=== PATIENT | female | born 1985 | race Caucasian/White ===

== ENCOUNTER 2019-06-30 12:58 | Emergency (ER) | payer MEDICAID, SELFPAY ==
[2019-06-30 13:20] VITALS: BP 81/44; PULSE 88; RESP 16; TEMP 36.6; O2SAT 99; BMI 26.4
--- NOTE | 2019-06-30 13:33 | ED_ITS ---
Entered by Catalina Brizuela, acting as scribe for Michael Lawson MD, [facility] Jun 30, 2019 12:58 HPI - General Adult General: Chief complaint: General Medical Stated complaint: body aches, head ache Time Seen by Provider: 06/30/19 13:33 Source: patient Mode of arrival: ambulatory Limitations: no limitations History of Present Illness: HPI narrative: 33 yo Female presents to ED with complaint of migraine headache, back pain, sores on her head, and diarrhea. Pt states that she has had diarrhea for 3 days. Pt states that she has had the headache since Saturday. MD complaint: Multiple complaints Onset (ago): day(s) (4) Location: head and back Pain Consistency: constant Relieving factors: none Exacerbating factors: none Associated symptoms: Reports fevers/chills, headache(s) and nausea Review of Systems General: Reports: 10 or more systems reviewed and unremarkable except in HPI and below Const: Reports: chills and body aches GI: Reports: nausea and diarrhea Musc: Reports: back pain Skin/Breast: Reports: sores (on her head) Neuro: Reports: headache PFSH ED PFSH: Statuses (acute, chronic, etc) shown below reflect problem list status as previously entered and may not be historically accurate Medical History (Updated 06/30/19 @ 19:13 by Michael Lawson MD, [facility] Anxiety (Acute) Chronic headache (Acute) Diabetes (Acute) DKA (diabetic ketoacidoses) (Acute) HTN (hypertension) (Acute) Hyperglycemia (Acute) Lymphadenitis (Acute) Migraine headache (Acute) Pancreatitis (Acute) PID (pelvic inflammatory disease) (Acute) Pyelonephritis (Acute) Respiratory failure (Acute) Sepsis (Acute) Ureterolithiasis (Acute) Surgical History (Updated 06/30/19 @ 13:58 by Catalina Brizuela) History of cholecystectomy (Acute) History of endoscopy (Acute) History of lung surgery (Acute) Social History Smoking and tobacco status: current every day smoker Female Reproductive History: Date of last menstrual period: 06/30/19 Physical Exam Const: COMMON NORMALS: no apparent distress, average body habitus, oriented x3, no limitations, healthy appearing, alert and well nourished HENMT: COMMON NORMALS: normocephalic, head/scalp atraumatic, hearing grossly normal bilaterally, external ears normal, EAC's normal, TM's normal bilaterally, external nose normal, nasal mucous membranes and turbinates normal, moist oral mucous membranes, oropharynx normal, dentition normal and gingiva normal HEAD & SCALP: normocephalic and atraumatic NOSE: external nose normal and nasal mucous membranes and turbinates normal EXTERNAL EAR: Yes external ears normal EXTERNAL AUDITORY CANAL: EAC's normal TYMPANIC MEMBRANE: TM's normal bilaterally Eye: COMMON NORMALS: PERRL, EOMs intact bilaterally, conjunctivae normal, no scleral icterus, no papilledema, normal visual torres by confrontation and fundi normal bilaterally CONJUNCTIVA: Yes conjunctivae normal PUPIL: Yes PERRL DIRECT OPHTHALMOSCOPY: Yes no papilledema and Yes fundi normal bilaterally Neck/C-Spine: COMMON NORMALS: full ROM, supple, no meningeal signs, no JVD and no carotid bruits Chest: COMMONS NORMALS: inspection of chest normal and palpation of chest normal Resp: COMMON NORMALS: normal respiratory effort, no retractions, no use of accessory muscles, clear to auscultation bilaterally and percussion normal AUSCULTATION: clear to auscultation bilaterally PERCUSSION: percussion normal Cardio: COMMON NORMALS: no JVD, regular rate, regular rhythm, S1 normal heart sound, S2 normal heart sound, no gallops, no clicks, no murmurs, no rub and peripheral pulses 2+ throughout RATE: regular rate RHYTHM: regular rhythm HEART SOUNDS: S1 normal and S2 normal PERIPHERAL PULSES: pulses 2+ throughout GI: COMMON NORMALS: normal to inspection, nondistended, normoactive bowel sounds, soft to palpation, no hepatosplenomegaly, no masses and no bruits PALPATION: Yes soft, Yes tender (Generalized) and Yes no hepatosplenomegaly : COMMON NORMALS: Yes no CVA tenderness BLADDER/KIDNEY EXAM: Yes no CVA tenderness Back/Pelvis: COMMON NORMALS: no CVA tenderness Extremity: COMMON NORMALS: normal to inspection, full ROM, normal capillary refill, no joint enlargement, no clubbing, cyanosis or edema, no calf tenderness and no pedal edema Neuro: COMMON NORMALS: oriented x3 SENSORIUM/ORIENTATION: Yes alert MENINGEAL SIGNS: Yes no meningeal signs Skin: COMMON NORMALS: no rashes or lesions noted, no wounds, skin turgor normal, no jaundice, no petechiae and no mottling GENERAL SKIN EXAM: no rashes or lesions noted and turgor normal Course Reevaluation(s): Reevaluation #1: Patient seen. She is sleeping soundly. Her headache is probably resolved. Time: 14:52 Reevaluation #2: Patient seen. She is awake now. She says her headache has resolved. Discussed her labs and imaging findings with her. She appears to have a UTI and has elevated liver enzymes. She no longer has her gallbladder as it has been surgically removed. Will order a CT scan of her abdomen and if negative will discharge her home. She voiced understanding and is in agreement with the plan Time: 16:30 Vital Signs: Vital signs: Vital Signs Temperature 97.6 F 06/30/19 22:51 Pulse Rate 85 06/30/19 22:51 Respiratory Rate 14 06/30/19 22:51 Blood Pressure 117/88 06/30/19 22:51 Pulse Oximetry 98 06/30/19 22:51 MDM - General Adult MDM Narrative: Medical decision making narrative: 33-year-old female who presented with symptoms consistent with a migraine headache. She also has been having some diarrhea and abdominal pain. Lab testing done including a CT of her abdomen and pelvis showed a UTI. She is discharged home on oral antibiotics after receiving a single course of IV ceftriaxone. She also received medications for migraine which helped relieve her headache. Lab Data: Labs: Lab Results 06/30/19 06/30/19 06/30/19 Range/Units 13:34 13:34 14:00 WBC 11.2 H (4.0-10.0) 10^3/ uL RBC 4.77 (4.1-5.3) 10^6/u L Hgb 13.5 (11.5-15.3) g/dL Hct 38.8 (37.0-47.0) % MCV 81.3 (81-99) fL MCH 28.3 (28.0-34.0) pg MCHC 34.8 (30.0-36.0) g/dL RDW 12.0 L (12.1-15.1) % Plt Count 244 (130-400) 10^3/c mm MPV 11.3 H (7.4-10.4) fL Neut % (Auto) 81.7 % Lymph % (Auto) 11.8 % Mccreary % (Auto) 4.8 % Eos % (Auto) 1.0 % Baso % (Auto) 0.3 % Neut # (Auto) 9.2 H (1.8-7.7) 10^3/u L Lymph # (Auto) 1.3 (0.8-4.8) 10^3/u L Mccreary # (Auto) 0.5 (0.2-0.9) 10^3/u L Eos # (Auto) 0.1 (0.0-0.8) 10^3/u L Baso # (Auto) 0.0 (0.0-0.1) 10^3/u L Nucleated RBC % (a uto) 0 % Nucleated RBCs # 0.0 /100WBC Specimen Type Sample Site ABG pH (7.35-7.45) ABG pCO2 (35-45) mmHg ABG pO2 (80.0-100.0) mmH g ABG HCO3 (22-26) mmol/L ABG Base Excess (-2.0-2.0) mmol/ L Braulio Test Hematocrit (37-47) % Hgb O2 Saturation (95-100) % Carboxyhemoglobin (0.4-20.1) %THgb Methemoglobin (0.4-1.5) % Total Hemoglobin (12-16) g/dL Ionized Calcium (1.1-1.4) mmol/L FiO2 % Sql Consultant ID Sodium (136-145) mmol/L Potassium (3.5-5.1) mmol/L Chloride (98-107) mmol/L Carbon Dioxide (22-29) mmol/L Anion Gap (5-19) BUN (6-20) mg/dL Creatinine (0.5-0.9) mg/dL GFR Calculation (90-130) mL/min Glucose (74-109) mg/dL Calcium (8.6-10.0) mg/Dl Total Bilirubin (0.15-1.2) mg/dL AST (0-32) U/L ALT (0-33) U/L Alkaline Phosphata se (35-105) IU/L C-Reactive Protein (0.0-4.9) mg/L Total Protein (6.6-8.7) g/dL Albumin (3.5-5.2) g/dL Globulin (1.3-4.6) g/dL Lipase (13-60) U/L HCG, Qual Negative (Negative) Urine Color Yellow (Yellow) Urine Appearance Sl hazy (CLEAR) Urine pH 5 (5-7) Ur Specific Gravit y 1.010 (1.005-1.030) Urine Protein Neg (Negative) Urine Glucose (UA) 4+ H (Normal) Urine Ketones Negative (Negative) Urine Occult Blood Neg (Negative) Urine Nitrate Positive H (Negative) Urine Bilirubin Neg (NEGATIVE) Urine Urobilinogen Norm (Negative) mg/dL Ur Leukocyte Denise ase Negative (Negative) Urine RBC None (0-2) /hpf Urine WBC 25-40 H (0-5) /hpf Ur Squamous Epith Cells 0-4 H (0-5) Urine Bacteria 4+ H (NONE) Influenza Type A A g (Negative) POC Influenza B Ag (Negative) 06/30/19 06/30/19 06/30/19 Range/Units 14:00 14:19 15:20 WBC (4.0-10.0) 10^3/ uL RBC (4.1-5.3) 10^6/u L Hgb (11.5-15.3) g/dL Hct (37.0-47.0) % MCV (81-99) fL MCH (28.0-34.0) pg MCHC (30.0-36.0) g/dL RDW (12.1-15.1) % Plt Count (130-400) 10^3/c mm MPV (7.4-10.4) fL Neut % (Auto) % Lymph % (Auto) % Mccreary % (Auto) % Eos % (Auto) % Baso % (Auto) % Neut # (Auto) (1.8-7.7) 10^3/u L Lymph # (Auto) (0.8-4.8) 10^3/u L Mccreary # (Auto) (0.2-0.9) 10^3/u L Eos # (Auto) (0.0-0.8) 10^3/u L Baso # (Auto) (0.0-0.1) 10^3/u L Nucleated RBC % (a uto) % Nucleated RBCs # /100WBC Specimen Type Arterial Sample Site Radial, right ABG pH 7.38 (7.35-7.45) ABG pCO2 35.0 (35-45) mmHg ABG pO2 86.7 (80.0-100.0) mmH g ABG HCO3 20.6 L (22-26) mmol/L ABG Base Excess -3.9 L (-2.0-2.0) mmol/ L Braulio Test Pos Hematocrit 40.7 (37-47) % Hgb O2 Saturation 96.6 (95-100) % Carboxyhemoglobin 1.2 (0.4-20.1) %THgb Methemoglobin 0.5 (0.4-1.5) % Total Hemoglobin 13.3 (12-16) g/dL Ionized Calcium 1.2 (1.1-1.4) mmol/L FiO2 21.0 % Sql Consultant ID ed Sodium 127 L 132.0 (136-145) mmol/L Potassium 3.7 3.5 (3.5-5.1) mmol/L Chloride 96 L (98-107) mmol/L Carbon Dioxide 18 L (22-29) mmol/L Anion Gap 16.7 (5-19) BUN 15 (6-20) mg/dL Creatinine 0.7 (0.5-0.9) mg/dL GFR Calculation 97.0 (90-130) mL/min Glucose 465 H 316.0 H (74-109) mg/dL Calcium 8.7 (8.6-10.0) mg/Dl Total Bilirubin 0.4 (0.15-1.2) mg/dL AST 21 (0-32) U/L ALT 63 H (0-33) U/L Alkaline Phosphata se 301 H (35-105) IU/L C-Reactive Protein 5.9 H (0.0-4.9) mg/L Total Protein 7.0 (6.6-8.7) g/dL Albumin 3.3 L (3.5-5.2) g/dL Globulin 3.7 (1.3-4.6) g/dL Lipase 15 (13-60) U/L HCG, Qual (Negative) Urine Color (Yellow) Urine Appearance (CLEAR) Urine pH (5-7) Ur Specific Gravit y (1.005-1.030) Urine Protein (Negative) Urine Glucose (UA) (Normal) Urine Ketones (Negative) Urine Occult Blood (Negative) Urine Nitrate (Negative) Urine Bilirubin (NEGATIVE) Urine Urobilinogen (Negative) mg/dL Ur Leukocyte Denise ase (Negative) Urine RBC (0-2) /hpf Urine WBC (0-5) /hpf Ur Squamous Epith Cells (0-5) Urine Bacteria (NONE) Influenza Type A A g Negative (Negative) POC Influenza B Ag Negative (Negative) Imaging Data^: CT Abd/Pel: Radiologist's impression: [place] [address] CT Scan Report Signed Patient: Donita Aguilar MMR#: [id number] : 1985Acct:[id number] Age/Sex: 33 / FADM Date: 06/30/19 Loc: ER Attending Dr: Ordering Physician: Michael Lawson MD, JACKIE Date of Service: 06/30/19 Procedure(s): CT abdomen pelvis w con* [id number] Accession Number(s): [id number] cc: Michael Lawson MD, JACKIE~ PROCEDURE INFORMATION: Exam: CT Abdomen And Pelvis With Contrast Exam date and time: 06/30/2019 6:35 PM Age: 33 years old Clinical indication: Nausea and vomiting and other: Diarrhea; Abdominal pain; Generalized; Additional info: Abd pain, diarrhea, elevated liver enzymes TECHNIQUE: Imaging protocol: Computed tomography of the abdomen and pelvis with intravenous contrast. Axial, coronal and sagittal reformatted images were created and reviewed. Total DLP: 579.89 mGy-cm Radiation optimization: All CT scans at this facility use at least one of these dose optimization techniques: automated exposure control; mA and/or kV adjustment per patient size (includes targeted exams where dose is matched to clinical indication); or iterative reconstruction. Contrast material: OMNI 300; Contrast volume: 95 ml; Contrast route: IV; COMPARISON: CT abdomen pelvis w con* [id number] 07/26/2018 1:02 AM FINDINGS: Lungs: Minimal linear stranding and groundglass at the lung bases, likely due to atelectasis and/or scarring. Postsurgical changes at the left lung base. Unchanged 9 mm right lower lobe calcified granuloma. Mediastinum: Small hiatal hernia and mild nonspecific distal esophageal wall thickening, suggesting chronic reflux/esophagitis. Liver: Unremarkable. Gallbladder and bile ducts: Status post cholecystectomy. No biliary ductal dilatation. Pancreas: Unremarkable. Spleen: Unremarkable. Adrenals: Unremarkable. Kidneys and ureters: The left greater than right renal cortical scarring. No radiodense calculi. No hydronephrosis. Stomach and bowel: No bowel wall thickening. No obstruction. No pneumatosis. Appendix: Normal. Intraperitoneal space: Trace nonspecific free pelvic fluid, likely physiologic. No organized fluid collection. No free air. Vasculature: Unremarkable. No aneurysm. Lymph nodes: Small mesenteric lymph nodes, nonspecific in appearance. No pathologically enlarged lymph nodes. Bladder: Circumferential urinary bladder wall thickening, compatible with cystitis. Nondependent gas in the urinary bladder, consistent with recent instrumentation versus gas producing organism. Reproductive: Probable involuting right ovarian corpus luteal cyst. Bones/joints: No acute osseous abnormality. Bilateral L5 pars defects. Soft tissues: Unremarkable. CT/CT abdomen pelvis w con* [id number] IMPRESSION: 1. Circumferential urinary bladder wall thickening, compatible with cystitis. Nondependent gas in the urinary bladder, consistent with recent instrumentation versus gas producing organism. 2. Additional findings, as above. Radiation Dose CTDIVOL = (mGy): DLP = 579.89 (mGy-cm) Dictated By: Amilcar Montalvo MD 06/30/191919 Signed By: Amilcar Montalvo MD 06/30/191920 Discharge Plan Discharge Patient Disposition: Home, Self-Care Clinical Impression: UTI (urinary tract infection) Qualifiers: Urinary tract infection type: acute cystitis Hematuria presence: without hematuria Qualified Code(s): N30.00 - Acute cystitis without hematuria Migraine Qualifiers: Migraine type: without aura Status migrainosus presence: without status migrainosus Intractability: not intractable Qualified Code(s): G43.009 - Migraine without aura, not intractable, without status migrainosus Condition: Stable Prescriptions: New Bactrim DS 800-160 mg tablet 1 tab PO BID Qty: 6 RF: 0 Continued gabapentin 300 mg Capsule 300 mg PO BID RF: 0 ProAir HFA 90 mcg/actuation Hfa Aerosol Inhaler 1 - 2 puff INHALATION Q4H PRN (Reason: Shortness Of Breath) RF: 0 Humalog KwikPen Insulin 100 unit/mL Insulin Pen See Rx Instructions .ROUTE .COMPLEX RF: 0 Lantus Solostar U-100 Insulin 100 unit/mL (3 mL) Insulin Pen 45 unit SUBCUT BEDTIME RF: 0 Discharge Orders: Discharge Order (Routine); Ordered 06/30/19 Ordered By: Michael Lawson Referrals: [facility] [Other] Elizabeth Dougherty [Primary Care Provider] - 1-3 days Patient Instructions: Headache - Migraine (Adult) Activity Restrictions/Additional Instructions: Return for any new or worsening symptoms. Follow-up with your primary care provider within 3 days. Drink plenty of fluids to keep well-hydrated. Stand Alone Forms: Work/School Release Discharge Date/Time: 06/30/19 22:50 Coding Level of Care Code ED [facility] for Chg Fwd Exam Problem Focused The documentation recorded by the Chata patterson Carmen, accurately reflects the service I personally performed and the decisions made by Lulu miranda Adegoke I, MD, [facility] Jun 30, 2019 12:58
--- NOTE | 2019-06-30 13:50 | PC.NURSE ---
Patient assited to the restroom via wheelchair for urine collection
[2019-06-30] MEDS: diphenhydrAMINE 50 mg/mL SDV 1mL 25 MG IVP (13:59)
[2019-06-30] MEDS: sodium chloride 0.9% 1,000 ML 999 ML IV (13:59)
[2019-06-30] MEDS: ketorolac 30 mg/mL INJ IVP (13:59)
[2019-06-30 14:12] LABS: Glucose Urine UA 4+ (Normal); Ketones Urine Negative (Negative); Protein Urine Neg (Negative); Urine Appearance SL Hazy (CLEAR); Urine Color Yellow (Yellow); pH Urine 5 (5-7)
[2019-06-30 14:13] LABS: Add Urine Microscopic? YES; Bilirubin Urine Neg (NEGATIVE); Blood Urine Neg (Negative); Leukocyte Esterase Urine Negative (Negative); Nitrate Urine Positive (Negative); Urobilinogen Urine Norm (Negative)
--- NOTE | 2019-06-30 14:15 | PC.NURSE ---
Abdomen tender in all quadrants
[2019-06-30 14:19] LABS: Basophils % 0.3 %; Eosinophils # 0.1 10^3/uL (0.0-0.8); Hematocrit 38.8 % (37.0-47.0); Hemoglobin 13.5 g/dL (11.5-15.3); Lymphocytes # 1.3 10^3/uL (0.8-4.8); Lymphocytes % 11.8 %; Mean Corpuscular HGB Conc 34.8 g/dL (30.0-36.0); Mean Corpuscular Hemoglobin 28.3 pg (28.0-34.0); Mean Corpuscular Volume 81.3 fL (81-99); Mean Platelet Volume 11.3 fL (7.4-10.4); Monocytes # 0.5 10^3/uL (0.2-0.9); Monocytes % 4.8 %; Neutrophils # 9.2 10^3/uL (1.8-7.7); Neutrophils % 81.7 %; Nucleated Red Blood Cells % 0 %; Platelet Count 244 10^3/cmm (130-400); Red Blood Count 4.77 10^6/uL (4.1-5.3); White Blood Count 11.2 10^3/uL (4.0-10.0)
[2019-06-30 14:20] LABS: Squamous Epithelial Cell Urine 0-4 (0-5)
[2019-06-30 14:21] LABS: Bacteria Urine 4+
[2019-06-30 14:22] LABS: Add Urine Culture? Yes; WBC Urine 25-40 /hpf (0-5)
[2019-06-30 14:35] LABS: Alanine Aminotransferase 63 U/L (0-33); Albumin Level 3.3 g/dL (3.5-5.2); Alkaline Phosphatase 301 IU/L (35-105); Anion Gap 16.7 (5-19); Aspartate Amino Transferase 21 U/L (0-32); Blood Urea Nitrogen 15 mg/dL (6-20); C Reactive Protein 5.9 mg/L (0.0-4.9); Calcium 8.7 mg/Dl (8.6-10.0); Carbon Dioxide 18 mmol/L (22-29); Chloride 96 mmol/L (98-107); Globulin 3.7 g/dL (1.3-4.6); Glucose 465 mg/dL (74-109); Lipase 15 U/L (13-60); Potassium 3.7 mmol/L (3.5-5.1); Sodium 127 mmol/L (136-145); Total Bilirubin 0.4 mg/dL (0.15-1.2)
[2019-06-30 14:42] LABS: Influenza A by IFA Negative (Negative); Influenza B by IFA Negative (Negative)
[2019-06-30 15:24] LABS: ABG PH Result 7.38 (7.35-7.45); Arterial Blood Gas Hematocrit 40.7 % (37-47); Base Excess ABG -3.9 mmol/L (-2.0-2.0); Blood Gas Allen Test Pos; Blood Gas Sample Site Radial, right; Blood Gas Sample Type Arterial; Carboxyhemoglobin 1.2 %THgb (0.4-20.1); HCO3 ABG 20.6 mmol/L (22-26); HGB O2 Sat 96.6 % (95-100); Ionized Calcium Level - ABG 1.2 mmol/L (1.1-1.4); Methemoglobin 0.5 % (0.4-1.5); PO2 ABG 86.7 mmHg (80.0-100.0); Potassium Level - ABG 3.5 mmol/L (3.5-5.0); Total Hemoglobin 13.3 g/dL (12-16)
--- NOTE | 2019-06-30 15:45 | PC.NURSE ---
Patient resting at this time. Reports symptoms have improved.
--- NOTE | 2019-06-30 16:29 | CTR_ITS ---
PROCEDURE INFORMATION: Exam: CT Abdomen And Pelvis With Contrast Exam date and time: 06/30/2019 6:35 PM Age: 33 years old Clinical indication: Nausea and vomiting and other: Diarrhea; Abdominal pain; Generalized; Additional info: Abd pain, diarrhea, elevated liver enzymes TECHNIQUE: Imaging protocol: Computed tomography of the abdomen and pelvis with intravenous contrast. Axial, coronal and sagittal reformatted images were created and reviewed. Total DLP: 579.89 mGy-cm Radiation optimization: All CT scans at this facility use at least one of these dose optimization techniques: automated exposure control; mA and/or kV adjustment per patient size (includes targeted exams where dose is matched to clinical indication); or iterative reconstruction. Contrast material: OMNI 300; Contrast volume: 95 ml; Contrast route: IV; COMPARISON: CT abdomen pelvis w con* [id number] 07/26/2018 1:02 AM FINDINGS: Lungs: Minimal linear stranding and groundglass at the lung bases, likely due to atelectasis and/or scarring. Postsurgical changes at the left lung base. Unchanged 9 mm right lower lobe calcified granuloma. Mediastinum: Small hiatal hernia and mild nonspecific distal esophageal wall thickening, suggesting chronic reflux/esophagitis. Liver: Unremarkable. Gallbladder and bile ducts: Status post cholecystectomy. No biliary ductal dilatation. Pancreas: Unremarkable. Spleen: Unremarkable. Adrenals: Unremarkable. Kidneys and ureters: The left greater than right renal cortical scarring. No radiodense calculi. No hydronephrosis. Stomach and bowel: No bowel wall thickening. No obstruction. No pneumatosis. Appendix: Normal. Intraperitoneal space: Trace nonspecific free pelvic fluid, likely physiologic. No organized fluid collection. No free air. Vasculature: Unremarkable. No aneurysm. Lymph nodes: Small mesenteric lymph nodes, nonspecific in appearance. No pathologically enlarged lymph nodes. Bladder: Circumferential urinary bladder wall thickening, compatible with cystitis. Nondependent gas in the urinary bladder, consistent with recent instrumentation versus gas producing organism. Reproductive: Probable involuting right ovarian corpus luteal cyst. Bones/joints: No acute osseous abnormality. Bilateral L5 pars defects. Soft tissues: Unremarkable. CT/CT abdomen pelvis w con* [id number] IMPRESSION: 1. Circumferential urinary bladder wall thickening, compatible with cystitis. Nondependent gas in the urinary bladder, consistent with recent instrumentation versus gas producing organism. 2. Additional findings, as above. Radiation Dose CTDIVOL = (mGy): DLP = 579.89 (mGy-cm)
[2019-06-30 18:26] LABS: HCG Qualitative Urine. Negative (Negative)
[2019-06-30] MEDS: iohexol 300 mg/mL 100 mL Btl 95 ML IV (18:36)
--- NOTE | 2019-06-30 18:43 | PC.NURSE ---
Patient out of department
[2019-06-30] MEDS: cefTRIAXone 1,000 MG in sodium chloride 0.9% (plus) 50 ML 100 MG IV (20:14)
[2019-06-30] MEDS: dexamethasone 4 mg/mL INJ IVP (21:36)
[2019-06-30] MEDS: valproic acid inj 500 MG in sodium chloride 0.9% 50 ML 55 MG IV (21:39)
[2019-06-30 22:51] VITALS: BP 117/88; PULSE 85; RESP 14; TEMP 36.4; O2SAT 98
[2019-07-01 09:42] LABS: Oxygen Device ROOM AIR; Oxygen Saturation ABG 98.2
== END 2019-06-30 22:50 | disposition home or self-care (01) ==
PROVIDERS: Emergency Provider Family Medicine; PCP Nurse Practitioner Family
DX: G43.009 Migraine without aura, not intractable, without status migrainosus (principal); N30.00 Acute cystitis without hematuria; E11.9 Type 2 diabetes mellitus without complications; I10 Essential (primary) hypertension; F17.210 Nicotine dependence, cigarettes, uncomplicated; Z87.440 Personal history of urinary (tract) infections
CPT/HCPCS: 36415; 36600; 74177; 80051; 80053; 81003; 81025; 82810; 83690; 83986; 85025; 86140; 87077; 87086; 87186; 87804; 96360; 96365; 96374; 96375; 99281; J0696; J1100; J1200; J1885; J7030; Q9967

== ENCOUNTER 2019-07-08 18:39 | Emergency (ER) | payer MEDICAID, SELFPAY ==
[2019-07-08 20:22] VITALS: PULSE 140; RESP 26; TEMP 37.4; O2SAT 95
== END 2019-07-08 20:34 | disposition left against medical advice (07) ==
PROVIDERS: Emergency Provider Emergency Medicine; PCP Nurse Practitioner Family
DX: Z53.21 Procedure and treatment not carried out due to patient leaving prior to being seen by health care provider (principal)
CPT/HCPCS: 99281

== ENCOUNTER 2019-07-20 01:53 | Emergency (ER) | payer MEDICAID, SELFPAY ==
[2019-07-20] VITALS (7 sets, daily range): BP systolic 96–123; BP diastolic 66–95; PULSE 73–81; RESP 10–16; TEMP 35–36; O2SAT 98–100; BMI 32.2
--- NOTE | 2019-07-20 02:03 | ED_ITS ---
Entered by Mary Mckee, acting as scribe for Jak Larose DO HPI - General Adult General: Chief complaint: General Medical Stated complaint: LOW BLOOD SUGAR Time Seen by Provider: 07/20/19 02:00 Source: patient Mode of arrival: EMS Limitations: no limitations History of Present Illness: HPI narrative: 33 yo f came to the er by [facility] Ems for low blood sugar. Onset was tonight. Ems stated that when they arrived the blood sugar count was 22 and when they arrived at the hospital it was 144, fire dept also gave the pt some blue frosting to try and get her sugar up. stated that they checked the pts sugar before she went to bed at 9 and it was around 200. Pt states that she hurts all over. Pt has been going to [facility] twice a week to try and get her sugar regulated. MD complaint: low blood sugar Onset (ago): day(s) (tonight) Radiation: non-radiation Severity: moderate Associated symptoms: Deny chest pain, confusion, dyspnea, headache(s), nausea, rash, palpitations or vomiting Review of Systems Const: Reports: body aches; Denies: fever or chills Eyes: Reports: blurry vision; Denies: change in vision ENMT: Denies: painful swallowing, swelling of lips/tongue, bleeding gums, dental pain, Change in hearing, nose bleeds, post nasal drip or facial/sinus pain Card: Denies: chest pain, palpitations, irregular heart rhythm, edema, swelling of feet/ankles, shortness of breath on exertion or shortness of breath when lying down Resp: Denies: shortness of breath, productive cough, non-productive cough or wheezing GI: Denies: abdominal pain, nausea, vomiting, rectal pain, blood in stool or black tarry stool : Denies: painful urination, urinary frequency, urinary urgency or blood in urine Musc: Denies: neck pain, back pain, redness or joint warmth Skin/Breast: Denies: rash, itching or redness Neuro: Denies: headache, dizziness, vertigo, confusion or seizure-like activity PFSH ED PFSH: Statuses (acute, chronic, etc) shown below reflect problem list status as previously entered and may not be historically accurate Medical History Anxiety (Acute) Chronic headache (Acute) Diabetes (Acute) DKA (diabetic ketoacidoses) (Acute) HTN (hypertension) (Acute) Hyperglycemia (Acute) Lymphadenitis (Acute) Migraine headache (Acute) Pancreatitis (Acute) PID (pelvic inflammatory disease) (Acute) Pyelonephritis (Acute) Respiratory failure (Acute) Sepsis (Acute) Ureterolithiasis (Acute) Surgical History History of cholecystectomy (Acute) History of endoscopy (Acute) History of lung surgery (Acute) Social History Smoking and tobacco status: current every day smoker Female Reproductive History: Date of last menstrual period: 06/30/19 Physical Exam Const: GENERAL APPEARANCE: well developed ORIENTATION/CONSCIOUSNESS: Yes oriented to person and Yes oriented to place; not oriented to time HENMT: COMMON NORMALS: normocephalic, external ears normal and external nose normal HEAD & SCALP: normocephalic; no scalp tenderness FACE & SINUS: normal facial exam NOSE: external nose normal and no nasal discharge EXTERNAL EAR: Yes external ears normal MOUTH: tongue normal Eye: COMMON NORMALS: PERRL, EOMs intact bilaterally and conjunctivae normal EYELID: eyelids normal CONJUNCTIVA: Yes conjunctivae normal PUPIL: Yes PER RL Neck/C-Spine: COMMON NORMALS: full ROM GENERAL: No tracheal deviation Chest: COMMONS NORMALS: inspection of chest normal CHEST: No tenderness Resp: COMMON NORMALS: clear to auscultation bilaterally EFFORT & INSPECTION: No tachypneic, No respiratory distress, No retractions, No uses accessory muscles and No tracheal deviation AUSCULTATION: clear to auscultat ion bilaterally, no rhonchi, no wheezes and lung sounds not diminished Cardio: COMMON NORMALS: regular rate and regular rhythm RATE: regular rate RHYTHM: regular rhythm HEART SOUNDS: no murmurs PERIPHERAL PULSES: radial pulses present GI: INSPECTION: No abdominal distension AUSCULTATION: No hyperactive bowel sounds and No hypoactive bowel sounds PALPATION: No guarding and No rigid PERCUSSION: no tympanic to percussion Neuro: SENSORIUM/ORIENTATION: Yes oriented to person, Yes oriented to place and No oriented to time Psych: COMMON NORMALS: cooperative Skin: COMMON NORMALS: no rashes or lesions noted GENERAL SKIN EXAM: no rashes or lesions noted Course ED course: Sugar stayed up appropriately. Labs are otherwise benign save a potassium of 3.2 which was repleted. Vital Signs: Vital signs: Vital Signs Temperature 96.8 F L 07/20/19 03:03 Pulse Rate 81 07/20/19 04:09 Respiratory Rate 16 07/20/19 04:09 Blood Pressure 99/95 07/20/19 04:09 Pulse Oximetry 98 07/20/19 04:09 [facility] - General Adult Lab Data: Labs: Lab Results 07/20/19 07/20/19 07/20/19 Range/Units 02:04 02:27 02:27 WBC 6.3 (4.0-10.0) 10^3/ uL RBC 4.42 (4.1-5.3) 10^6/u L Hgb 12.6 (11.5-15.3) g/dL Hct 38.2 (37.0-47.0) % MCV 86.4 (81-99) fL MCH 28.5 (28.0-34.0) pg MCHC 33.0 (30.0-36.0) g/dL RDW 11.7 L (12.1-15.1) % Plt Count 216 (130-400) 10^3/c mm MPV 10.1 (7.4-10.4) fL Neut % (Auto) 63.7 % Lymph % (Auto) 22.0 % Mclean % (Auto) 10.8 % Eos % (Auto) 2.4 % Baso % (Auto) 0.5 % Neut # (Auto) 4.0 (1.8-7.7) 10^3/u L Lymph # (Auto) 1.4 (0.8-4.8) 10^3/u L Mclean # (Auto) 0.7 (0.2-0.9) 10^3/u L Eos # (Auto) 0.2 (0.0-0.8) 10^3/u L Baso # (Auto) 0.0 (0.0-0.1) 10^3/u L Nucleated RBC % (a uto) 0 % Nucleated RBCs # 0.0 /100WBC Sodium 137 (136-145) mmol/L Potassium 3.2 L (3.5-5.1) mmol/L Chloride 102 (98-107) mmol/L Carbon Dioxide 24 (22-29) mmol/L Anion Gap 14.2 (5-19) BUN 12 (6-20) mg/dL Creatinine 0.7 (0.5-0.9) mg/dL GFR Calculation 97.0 (90-130) mL/min Glucose 125 H (74-109) mg/dL POC Glucose 136 (70-110) mg/dL Calcium 9.0 (8.5-10.5) mg/dL Total Bilirubin 0.2 (0.15-1.2) mg/dL AST 18 (0-32) U/L ALT 16 (0-33) U/L Alkaline Phosphata se 93 (35-105) IU/L Creatine Kinase 53 (26-192) U/L Total Protein 6.5 L (6.6-8.7) g/dL Albumin 3.5 (3.5-5.2) g/dL Globulin 3.0 (1.3-4.6) g/dL 07/20/19 Range/Units 03:44 WBC (4.0-10.0) 10^3/ uL RBC (4.1-5.3) 10^6/u L Hgb (11.5-15.3) g/dL Hct (37.0-47.0) % MCV (81-99) fL MCH (28.0-34.0) pg MCHC (30.0-36.0) g/dL RDW (12.1-15.1) % Plt Count (130-400) 10^3/c mm MPV (7.4-10.4) fL Neut % (Auto) % Lymph % (Auto) % Mclean % (Auto) % Eos % (Auto) % Baso % (Auto) % Neut # (Auto) (1.8-7.7) 10^3/u L Lymph # (Auto) (0.8-4.8) 10^3/u L Mclean # (Auto) (0.2-0.9) 10^3/u L Eos # (Auto) (0.0-0.8) 10^3/u L Baso # (Auto) (0.0-0.1) 10^3/u L Nucleated RBC % (a uto) % Nucleated RBCs # /100WBC Sodium (136-145) mmol/L Potassium (3.5-5.1) mmol/L Chloride (98-107) mmol/L Carbon Dioxide (22-29) mmol/L Anion Gap (5-19) BUN (6-20) mg/dL Creatinine (0.5-0.9) mg/dL GFR Calculation (90-130) mL/min Glucose (74-109) mg/dL POC Glucose 173 (70-110) mg/dL Calcium (8.5-10.5) mg/dL Total Bilirubin (0.15-1.2) mg/dL AST (0-32) U/L ALT (0-33) U/L Alkaline Phosphata se (35-105) IU/L Creatine Kinase (26-192) U/L Total Protein (6.6-8.7) g/dL Albumin (3.5-5.2) g/dL Globulin (1.3-4.6) g/dL Discharge Plan Discharge Patient Disposition: Home, Self-Care Clinical Impression: Hypoglycemia Condition: Stable Prescriptions: No Action gabapentin 300 mg Capsule 300 mg PO BID RF: 0 ProAir HFA 90 mcg/actuation Hfa Aerosol Inhaler 1 - 2 puff INHALATION Q4H PRN (Reason: Shortness Of Breath) RF: 0 Humalog KwikPen Insulin 100 unit/mL Insulin Pen See Rx Instructions .ROUTE .COMPLEX RF: 0 Lantus Solostar U-100 Insulin 100 unit/mL (3 mL) Insulin Pen 45 unit SUBCUT BEDTIME RF: 0 Bactrim DS 800-160 mg tablet 1 tab PO BID Qty: 6 RF: 0 Discharge Orders: Discharge Order (Routine); Ordered 07/20/19 Ordered By: Jak Larose Referrals: [facility] [Other] Elizabeth Dougherty [Primary Care Provider] - 4-7 days Discharge Diet: Usual diet and Diabetic Discharge Activity: Resume usual activity Patient Instructions: Diabetic Hypoglycemia (ED) Activity Restrictions/Additional Instructions: Consider decreasing your long-acting insulin dosage by 20 units or so to prevent nighttime hypoglycemia. Check your sugar frequently. Call your doctor later this morning to let them know you were here with a hypoglycemic episode. They may have other orders for you. Discharge Date/Time: 07/20/19 04:10 Coding Level of Care Code ED Gas Fitter for Chg Fwd The documentation recorded by the Rafi patterson Stephanie Lyn, accurately reflects the service I personally performed and the decisions made by me, Jak Larose, Jul 20, 2019 01:53
[2019-07-20 02:08] LABS: Glucose Point of Care 136 mg/dL (70-110)
[2019-07-20 02:30] LABS: Basophils % 0.5 %; Eosinophils # 0.2 10^3/uL (0.0-0.8); Eosinophils % 2.4 %; Hematocrit 38.2 % (37.0-47.0); Hemoglobin 12.6 g/dL (11.5-15.3); Lymphocytes # 1.4 10^3/uL (0.8-4.8); Mean Corpuscular Hemoglobin 28.5 pg (28.0-34.0); Mean Corpuscular Volume 86.4 fL (81-99); Mean Platelet Volume 10.1 fL (7.4-10.4); Monocytes # 0.7 10^3/uL (0.2-0.9); Monocytes % 10.8 %; Neutrophils % 63.7 %; Nucleated Red Blood Cells % 0 %; Platelet Count 216 10^3/cmm (130-400); Red Blood Count 4.42 10^6/uL (4.1-5.3); Red Cell Distribution Width 11.7 % (12.1-15.1); White Blood Count 6.3 10^3/uL (4.0-10.0)
[2019-07-20] MEDS: sodium chloride 0.9% 1,000 ML 999 ML IV (02:32)
[2019-07-20] MEDS: ketorolac 30 mg/mL INJ IVP (02:33)
[2019-07-20 03:02] LABS: Alanine Aminotransferase 16 U/L (0-33); Albumin Level 3.5 g/dL (3.5-5.2); Alkaline Phosphatase 93 IU/L (35-105); Anion Gap 14.2 (5-19); Aspartate Amino Transferase 18 U/L (0-32); Blood Urea Nitrogen 12 mg/dL (6-20); Carbon Dioxide 24 mmol/L (22-29); Chloride 102 mmol/L (98-107); Creatine Phosphokinase 53 U/L (26-192); Glucose 125 mg/dL (74-109); Potassium 3.2 mmol/L (3.5-5.1); Sodium 137 mmol/L (136-145); Total Bilirubin 0.2 mg/dL (0.15-1.2); Total Protein 6.5 g/dL (6.6-8.7)
[2019-07-20 03:48] LABS: Glucose Point of Care 173 mg/dL (70-110)
== END 2019-07-20 04:10 | disposition home or self-care (01) ==
PROVIDERS: Emergency Provider Emergency Medicine; PCP Nurse Practitioner Family
DX: E11.649 Type 2 diabetes mellitus with hypoglycemia without coma (principal); Z79.4 Long term (current) use of insulin; I10 Essential (primary) hypertension; F17.210 Nicotine dependence, cigarettes, uncomplicated
CPT/HCPCS: 36415; 36416; 80053; 82550; 82962; 85025; 96374; 99281; J1885; J7030

== ENCOUNTER 2019-12-17 11:30 | Inpatient (IN) | payer MEDICAID, SELFPAY ==
[2019-12-17] VITALS (10 sets, daily range): BP systolic 92–143; BP diastolic 56–89; PULSE 69–84; RESP 16–20; TEMP 36.3–36.9; O2SAT 96–100; BMI 26.4
--- NOTE | 2019-12-17 12:03 | XRR_ITS ---
PROCEDURE INFORMATION: Exam: XR Chest, 2 Views Exam date and time: 12/17/2019 12:46 PM Age: 34 years old Clinical indication: Chest pain; Prior surgery; Surgery type: Lt lower lung? ; Additional info: Maxime rib pain, lateral sides TECHNIQUE: Imaging protocol: XR of the chest Views: 2 views. COMPARISON: CR Chest 1 [place] [id number] 05/24/2019 9:12 AM FINDINGS: Lungs: The lungs are otherwise expanded and clear Pleural space: Left lower lobe pleural effusion. No pneumothorax. Heart/Mediastinum: Unremarkable. No cardiomegaly. Bones/joints: Unremarkable. Other findings: Similar findings are present compared to prior examination XR/XR chest 2V* [id number] IMPRESSION: 1. Left lower lobe pleural effusion 2. Otherwise negative for acute abnormality
[2019-12-17 14:03] LABS: Basophils # 0.1 10^3/uL (0.0-0.1); Basophils % 0.5 %; Eosinophils # 0.1 10^3/uL (0.0-0.8); Eosinophils % 1.2 %; Hemoglobin 13.3 g/dL (11.5-15.3); Lymphocytes # 2.6 10^3/uL (0.8-4.8); Lymphocytes % 22.1 %; Mean Corpuscular HGB Conc 31.7 g/dL (30.0-36.0); Mean Corpuscular Hemoglobin 26.5 pg (28.0-34.0); Mean Corpuscular Volume 83.7 fL (81-99); Mean Platelet Volume 10.7 fL (7.4-10.4); Monocytes # 0.9 10^3/uL (0.2-0.9); Monocytes % 7.3 %; Neutrophils # 8.1 10^3/uL (1.8-7.7); Neutrophils % 68.6 %; Nucleated Red Blood Cells % 0 %; Platelet Count 389 10^3/cmm (130-400); Red Blood Count 5.02 10^6/uL (4.1-5.3); Red Cell Distribution Width 12.5 % (12.1-15.1); White Blood Count 11.7 10^3/uL (4.0-10.0)
[2019-12-17 14:13] LABS: HCG, Serum Qual Negative (Negative)
[2019-12-17 14:52] LABS: Alanine Aminotransferase 11 U/L (0-33); Albumin Level 3.3 g/dL (3.5-5.2); Alkaline Phosphatase 136 IU/L (35-105); Anion Gap 17.9 (5-19); Aspartate Amino Transferase 12 U/L (0-32); Blood Urea Nitrogen 12 mg/dL (6-20); Calcium 9.5 mg/dL (8.5-10.5); Carbon Dioxide 27 mmol/L (22-29); Chloride 87 mmol/L (98-107); Globulin 5.1 g/dL (1.3-4.6); Glomerular Filtration Rate 82.6 mL/min (90-130); Lipase 20 U/L (13-60); Osmolality Calculated 289 mOsm/kg (285-295); Potassium 4.9 mmol/L (3.5-5.1); Sodium 127 mmol/L (136-145); Total Bilirubin 0.2 mg/dL (0.15-1.2); Total Protein 8.4 g/dL (6.6-8.7)
--- NOTE | 2019-12-17 14:55 | CTR_ITS ---
PROCEDURE INFORMATION: Exam: CT Angiography Chest With Contrast Exam date and time: 12/17/2019 4:36 PM Age: 34 years old Clinical indication: Shortness of breath; Prior surgery; Surgery type: Lung; Additional info: Cp, pleural effusion TECHNIQUE: Imaging protocol: Computed tomographic angiography of the chest with intravenous contrast. 3D rendering: MIP and/or 3D reconstructed images were created by the technologist. Radiation optimization: All CT scans at this facility use at least one of these dose optimization techniques: automated exposure control; mA and/or kV adjustment per patient size (includes targeted exams where dose is matched to clinical indication); or iterative reconstruction. Contrast material: OMNI 350; Contrast volume: 95 ml; Contrast route: INTRAVENOUS (IV); COMPARISON: CT chest w con* [id number] 10/09/2017 8:55 AM RADIATION DOSE METRICS: Total DLP (mGy-cm): 523.11 FINDINGS: Pulmonary arteries: No visible pulmonary embolism/pulmonary arterial thrombus. Aorta: The thoracic aorta is nonaneurysmal. No visible intimal flap or dissection. Lungs: Stable granuloma anterior segment right lower lobe since 10/09/2017. No active interstitial or alveolar airspace disease identified. Evidence of a previous left lower lobectomy. Postsurgical changes. Pleural space: Again note of few rare left-sided calcified pleural plaques. Heart: Cardiac structures and configuration unremarkable. No visible pericardial effusion. Mediastinal space: Calcified granulomas of antecedent disease to include calcified hilar complexes. Lymph nodes: Unremarkable. No enlarged lymph nodes. Stable calcified hilar complexes of antecedent granulomatous disease. Kidneys and ureters: Limited assessment of the upper abdominal contents reveals the appearance of moderate pelvicaliectasis left kidney with associated perinephric stranding. Bones/joints: No visible active osseous pathology. Soft tissues: Unremarkable. Other findings: A total of 815 images were acquired that will require assessment and interpretation. CT/CT angio chest PE protcl [id number] IMPRESSION: 1. No visible pulmonary embolism/pulmonary arterial thrombus. 2. Limited assessment of the upper abdominal contents reveals the appearance of moderate pelvicaliectasis left kidney with associated perinephric stranding. Radiation Dose CTDIVOL = (mGy): DLP = 523.11 (mGy-cm)
--- NOTE | 2019-12-17 14:55 | ECG_ITS ---
[facility] Test Date: 2019-12-17 Pat Name: Donita Aguilar Department: Room: Gender: Female [employer]: : 1985 Requested By: Brodie Loya Order Number: [id number] Faviola MD: Austin Gallegos M.D. Measurements Intervals [place] Rate: 78 P: 15 MN: 142 QRS: 42 QRSD: 89 T: 6 QT: 373 QTc: 426 Interpretive Statements SINUS RHYTHM Compared to ECG 10/22/2017 01:05:05 T-wave abnormality no longer present Electronically Signed On 12-17-2019 21:13:59 CDT by Austin Gallegos M.D. [id number]
[2019-12-17 15:01] LABS: Glucose 619 mg/dL (65-115)
--- NOTE | 2019-12-17 15:02 | ED_ITS ---
Documented by User: SUZANNE Butt 12/17/19 17:05 HPI - General Adult General: Chief complaint: General Medical Stated complaint: PAIN IN BOTH SIDES Time Seen by Provider: 12/17/19 14:54 Source: patient Mode of arrival: ambulatory Limitations: no limitations History of Present Illness: HPI narrative: Patient comes in today for complaints of left and right rib pain. Patient states she has been having pain for the last 2 days. Patient does have a history of surgery to the left lower lung due to MRSA infection. Patient does have type 1 diabetes and recently has had poor control. Patient appears well. Patient appears in mild to moderate pain. 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 Pyelonephritis Respiratory failure Sepsis Ureterolithiasis Surgical History History of cholecystectomy History of endoscopy History of lung surgery Social History Smoking and tobacco status: current every day smoker Female Reproductive History: Date of last menstrual period: 11/19/19 Physical Exam Const: COMMON NORMALS: no acute distress and patient oriented x3 GENERAL APPEARANCE: cooperative HENMT: COMMON NORMALS: normocephalic and Normal external nose present HEAD & SCALP: normal to inspection and normocephalic NOSE: Normal external nose present MOUTH: Normal oral and palatal mucosa present THROAT: posterior oropharynx normal Eye: GENERAL EYE: appearance normal, both eyes and all related structures Neck/C-Spine: COMMON NORMALS: full ROM Lymph: LYMPHATIC: no lymphadenopathy noted Chest: COMMONS NORMALS: normal inspection of the chest Resp: COMMON NORMALS: normal respiratory effort EFFORT & INSPECTION: Yes able to speak in complete sentences AUSCULTATION: diminished lung sounds (Bilateral bases) Cardio: COMMON NORMALS: regular rate and regular rhythm RATE: regular rate RHYTHM: regular rhythm GI: COMMON NORMALS: non-tender : COMMON NORMALS: Yes no CVA tenderness BLADDER/KIDNEY EXAM: Yes no CVA tenderness Back/Pelvis: COMMON NORMALS: no CVA tenderness and thoracic and lumbar spine normal to inspection Extremity: COMMON NORMALS: normal to inspection Neuro: COMMON NORMALS: patient oriented x3 and moves all extremities Psych: COMMON NORMALS: mental status grossly normal and cooperative Skin: COMMON NORMALS: no rashes or lesions noted GENERAL SKIN EXAM: no rashes or lesions noted Course ED course: 1699, reviewed with TREMAYNE Soriano, agreed to assume care of bree lott jose r Vital Signs: Vital signs: Vital Signs Temperature 97.4 F L 12/17/19 11:56 Pulse Rate 74 12/17/19 19:51 Respiratory Rate 16 12/17/19 19:51 Blood Pressure 100/66 12/17/19 19:51 Pulse Oximetry 96 12/17/19 19:51 MDM - General Adult Lab Data: Labs: Lab Results 12/17/19 12/17/19 12/17/19 Range/Units 13:42 13:42 13:42 WBC 11.7 H (4.0-10.0) 10^3/ uL RBC 5.02 (4.1-5.3) 10^6/u L Hgb 13.3 (11.5-15.3) g/dL Hct 42.0 (37.0-47.0) % MCV 83.7 (81-99) fL MCH 26.5 L (28.0-34.0) pg MCHC 31.7 (30.0-36.0) g/dL RDW 12.5 (12.1-15.1) % Plt Count 389 (130-400) 10^3/c mm MPV 10.7 H (7.4-10.4) fL Neut % (Auto) 68.6 % Lymph % (Auto) 22.1 % [place] % (Auto) 7.3 % Eos % (Auto) 1.2 % Baso % (Auto) 0.5 % Neut # (Auto) 8.1 H (1.8-7.7) 10^3/u L Lymph # (Auto) 2.6 (0.8-4.8) 10^3/u L [place] # (Auto) 0.9 (0.2-0.9) 10^3/u L Eos # (Auto) 0.1 (0.0-0.8) 10^3/u L Baso # (Auto) 0.1 (0.0-0.1) 10^3/u L Nucleated RBC % (a uto) 0 % Nucleated RBCs # 0.0 /100WBC Sodium 127 L (136-145) mmol/L Potassium 4.9 (3.5-5.1) mmol/L Chloride 87 L (98-107) mmol/L Carbon Dioxide 27 (22-29) mmol/L Anion Gap 17.9 (5-19) BUN 12 (6-20) mg/dL Creatinine 0.8 (0.5-0.9) mg/dL GFR Calculation 82.6 L (90-130) mL/min Glucose 619 H* (65-115) mg/dL POC Glucose (70-110) mg/dL Calculated Osmolal ity 289 (285-295) mOsm/k g Lactic Acid (0.5-2.2) mmol/L Calcium 9.5 (8.5-10.5) mg/dL Total Bilirubin 0.2 (0.15-1.2) mg/dL AST 12 (0-32) U/L ALT 11 (0-33) U/L Alkaline Phosphata se 136 H (35-105) IU/L Troponin I 6 Hour (0-10) ng/L Troponin T Gen 5 n g/L (0-10) ng/L Troponin T 120 Min [place] (0-10) ng/L Delta Troponin T (0-10) ABS# NT-Pro-B Natriuret Pep (0-125) pg/mL Total Protein 8.4 (6.6-8.7) g/dL Albumin 3.3 L (3.5-5.2) g/dL Globulin 5.1 H (1.3-4.6) g/dL Lipase 20 (13-60) U/L HCG, Qual Negative (Negative) Urine Color (Yellow) Urine Appearance (CLEAR) Urine pH (5-7) Ur Specific Gravit y (1.005-1.030) Urine Protein (Negative) Urine Glucose (UA) (Normal) Urine Ketones (Negative) Urine Blood (Negative) Urine Nitrate (Negative) Urine Bilirubin (NEGATIVE) Urine Urobilinogen (Negative) mg/dL Ur Leukocyte Denise ase (Negative) Urine RBC (0-2) /hpf Urine WBC (0-5) /hpf Ur Squamous Epith Cells (0-5) Amorphous Sediment Urine Bacteria (NONE) Serum Ketones (Negative) 12/17/19 12/17/19 12/17/19 Range/Units 13:42 13:42 13:42 WBC (4.0-10.0) 10^3/ uL RBC (4.1-5.3) 10^6/u L Hgb (11.5-15.3) g/dL Hct (37.0-47.0) % MCV (81-99) fL MCH (28.0-34.0) pg MCHC (30.0-36.0) g/dL RDW (12.1-15.1) % Plt Count (130-400) 10^3/c mm MPV (7.4-10.4) fL Neut % (Auto) % Lymph % (Auto) % [place] % (Auto) % Eos % (Auto) % Baso % (Auto) % Neut # (Auto) (1.8-7.7) 10^3/u L Lymph # (Auto) (0.8-4.8) 10^3/u L [place] # (Auto) (0.2-0.9) 10^3/u L Eos # (Auto) (0.0-0.8) 10^3/u L Baso # (Auto) (0.0-0.1) 10^3/u L Nucleated RBC % (a uto) % Nucleated RBCs # /100WBC Sodium (136-145) mmol/L Potassium (3.5-5.1) mmol/L Chloride (98-107) mmol/L Carbon Dioxide (22-29) mmol/L Anion Gap (5-19) BUN (6-20) mg/dL Creatinine (0.5-0.9) mg/dL GFR Calculation (90-130) mL/min Glucose (65-115) mg/dL POC Glucose (70-110) mg/dL Calculated Osmolal ity (285-295) mOsm/k g Lactic Acid (0.5-2.2) mmol/L Calcium (8.5-10.5) mg/dL Total Bilirubin (0.15-1.2) mg/dL AST (0-32) U/L ALT (0-33) U/L Alkaline Phosphata se (35-105) IU/L Troponin I 6 Hour (0-10) ng/L Troponin T Gen 5 n g/L 18 H (0-10) ng/L Troponin T 120 Min [place] (0-10) ng/L Delta Troponin T (0-10) ABS# NT-Pro-B Natriuret Pep 247 H (0-125) pg/mL Total Protein (6.6-8.7) g/dL Albumin (3.5-5.2) g/dL Globulin (1.3-4.6) g/dL Lipase (13-60) U/L HCG, Qual (Negative) Urine Color (Yellow) Urine Appearance (CLEAR) Urine pH (5-7) Ur Specific Gravit y (1.005-1.030) Urine Protein (Negative) Urine Glucose (UA) (Normal) Urine Ketones (Negative) Urine Blood (Negative) Urine Nitrate (Negative) Urine Bilirubin (NEGATIVE) Urine Urobilinogen (Negative) mg/dL Ur Leukocyte Denise ase (Negative) Urine RBC (0-2) /hpf Urine WBC (0-5) /hpf Ur Squamous Epith Cells (0-5) Amorphous Sediment Urine Bacteria (NONE) Serum Ketones Negative (Negative) 12/17/19 12/17/19 12/17/19 Range/Units 15:13 16:13 16:13 WBC (4.0-10.0) 10^3/ uL RBC (4.1-5.3) 10^6/u L Hgb (11.5-15.3) g/dL Hct (37.0-47.0) % MCV (81-99) fL MCH (28.0-34.0) pg MCHC (30.0-36.0) g/dL RDW (12.1-15.1) % Plt Count (130-400) 10^3/c mm MPV (7.4-10.4) fL Neut % (Auto) % Lymph % (Auto) % [place] % (Auto) % Eos % (Auto) % Baso % (Auto) % Neut # (Auto) (1.8-7.7) 10^3/u L Lymph # (Auto) (0.8-4.8) 10^3/u L [place] # (Auto) (0.2-0.9) 10^3/u L Eos # (Auto) (0.0-0.8) 10^3/u L Baso # (Auto) (0.0-0.1) 10^3/u L Nucleated RBC % (a uto) % Nucleated RBCs # /100WBC Sodium (136-145) mmol/L Potassium (3.5-5.1) mmol/L Chloride (98-107) mmol/L Carbon Dioxide (22-29) mmol/L Anion Gap (5-19) BUN (6-20) mg/dL Creatinine (0.5-0.9) mg/dL GFR Calculation (90-130) mL/min Glucose (65-115) mg/dL POC Glucose > 600 (70-110) mg/dL Calculated Osmolal ity (285-295) mOsm/k g Lactic Acid 4.7 H* (0.5-2.2) mmol/L Calcium (8.5-10.5) mg/dL Total Bilirubin (0.15-1.2) mg/dL AST (0-32) U/L ALT (0-33) U/L Alkaline Phosphata se (35-105) IU/L Troponin I 6 Hour (0-10) ng/L Troponin T Gen 5 n g/L (0-10) ng/L Troponin T 120 Min [place] 19.73 H (0-10) ng/L Delta Troponin T 1.73 (0-10) ABS# NT-Pro-B Natriuret Pep (0-125) pg/mL Total Protein (6.6-8.7) g/dL Albumin (3.5-5.2) g/dL Globulin (1.3-4.6) g/dL Lipase (13-60) U/L HCG, Qual (Negative) Urine Color (Yellow) Urine Appearance (CLEAR) Urine pH (5-7) Ur Specific Gravit y (1.005-1.030) Urine Protein (Negative) Urine Glucose (UA) (Normal) Urine Ketones (Negative) Urine Blood (Negative) Urine Nitrate (Negative) Urine Bilirubin (NEGATIVE) Urine Urobilinogen (Negative) mg/dL Ur Leukocyte Denise ase (Negative) Urine RBC (0-2) /hpf Urine WBC (0-5) /hpf Ur Squamous Epith Cells (0-5) Amorphous Sediment Urine Bacteria (NONE) Serum Ketones (Negative) 12/17/19 12/17/19 12/17/19 Range/Units 17:19 17:49 19:36 WBC (4.0-10.0) 10^3/ uL RBC (4.1-5.3) 10^6/u L Hgb (11.5-15.3) g/dL Hct (37.0-47.0) % MCV (81-99) fL MCH (28.0-34.0) pg MCHC (30.0-36.0) g/dL RDW (12.1-15.1) % Plt Count (130-400) 10^3/c mm MPV (7.4-10.4) fL Neut % (Auto) % Lymph % (Auto) % [place] % (Auto) % Eos % (Auto) % Baso % (Auto) % Neut # (Auto) (1.8-7.7) 10^3/u L Lymph # (Auto) (0.8-4.8) 10^3/u L [place] # (Auto) (0.2-0.9) 10^3/u L Eos # (Auto) (0.0-0.8) 10^3/u L Baso # (Auto) (0.0-0.1) 10^3/u L Nucleated RBC % (a uto) % Nucleated RBCs # /100WBC Sodium (136-145) mmol/L Potassium (3.5-5.1) mmol/L Chloride (98-107) mmol/L Carbon Dioxide (22-29) mmol/L Anion Gap (5-19) BUN (6-20) mg/dL Creatinine (0.5-0.9) mg/dL GFR Calculation (90-130) mL/min Glucose (65-115) mg/dL POC Glucose 458 (70-110) mg/dL Calculated Osmolal ity (285-295) mOsm/k g Lactic Acid (0.5-2.2) mmol/L Calcium (8.5-10.5) mg/dL Total Bilirubin (0.15-1.2) mg/dL AST (0-32) U/L ALT (0-33) U/L Alkaline Phosphata se (35-105) IU/L Troponin I 6 Hour 17.60 H (0-10) ng/L Troponin T Gen 5 n g/L (0-10) ng/L Troponin T 120 Min [place] (0-10) ng/L Delta Troponin T (0-10) ABS# NT-Pro-B Natriuret Pep (0-125) pg/mL Total Protein (6.6-8.7) g/dL Albumin (3.5-5.2) g/dL Globulin (1.3-4.6) g/dL Lipase (13-60) U/L HCG, Qual (Negative) Urine Color Straw (Yellow) Urine Appearance Cloudy (CLEAR) Urine pH 5 (5-7) Ur Specific Gravit y 1.005 (1.005-1.030) Urine Protein Neg (Negative) Urine Glucose (UA) 4+ H (Normal) Urine Ketones Negative (Negative) Urine Blood Neg (Negative) Urine Nitrate Negative (Negative) Urine Bilirubin Neg (NEGATIVE) Urine Urobilinogen Norm (Negative) mg/dL Ur Leukocyte Denise ase Trace H (Negative) Urine RBC 0-4 H (0-2) /hpf Urine WBC 40-55 H (0-5) /hpf Ur Squamous Epith Cells 15-25 H (0-5) Amorphous Sediment Not Reportable Urine Bacteria 2+ H (NONE) Serum Ketones (Negative) 12/16/ Range/Units 19:43 WBC (4.0-10.0) 10^3/ uL RBC (4.1-5.3) 10^6/u L Hgb (11.5-15.3) g/dL Hct (37.0-47.0) % MCV (81-99) fL MCH (28.0-34.0) pg MCHC (30.0-36.0) g/dL RDW (12.1-15.1) % Plt Count (130-400) 10^3/c mm MPV (7.4-10.4) fL Neut % (Auto) % Lymph % (Auto) % [place] % (Auto) % Eos % (Auto) % Baso % (Auto) % Neut # (Auto) (1.8-7.7) 10^3/u L Lymph # (Auto) (0.8-4.8) 10^3/u L [place] # (Auto) (0.2-0.9) 10^3/u L Eos # (Auto) (0.0-0.8) 10^3/u L Baso # (Auto) (0.0-0.1) 10^3/u L Nucleated RBC % (a uto) % Nucleated RBCs # /100WBC Sodium (136-145) mmol/L Potassium (3.5-5.1) mmol/L Chloride (98-107) mmol/L Carbon Dioxide (22-29) mmol/L Anion Gap (5-19) BUN (6-20) mg/dL Creatinine (0.5-0.9) mg/dL GFR Calculation (90-130) mL/min Glucose (65-115) mg/dL POC Glucose 351 (70-110) mg/dL Calculated Osmolal ity (285-295) mOsm/k g Lactic Acid (0.5-2.2) mmol/L Calcium (8.5-10.5) mg/dL Total Bilirubin (0.15-1.2) mg/dL AST (0-32) U/L ALT (0-33) U/L Alkaline Phosphata se (35-105) IU/L Troponin I 6 Hour (0-10) ng/L Troponin T Gen 5 n g/L (0-10) ng/L Troponin T 120 Min [place] (0-10) ng/L Delta Troponin T (0-10) ABS# NT-Pro-B Natriuret Pep (0-125) pg/mL Total Protein (6.6-8.7) g/dL Albumin (3.5-5.2) g/dL Globulin (1.3-4.6) g/dL Lipase (13-60) U/L HCG, Qual (Negative) Urine Color (Yellow) Urine Appearance (CLEAR) Urine pH (5-7) Ur Specific Gravit y (1.005-1.030) Urine Protein (Negative) Urine Glucose (UA) (Normal) Urine Ketones (Negative) Urine Blood (Negative) Urine Nitrate (Negative) Urine Bilirubin (NEGATIVE) Urine Urobilinogen (Negative) mg/dL Ur Leukocyte Denise ase (Negative) Urine RBC (0-2) /hpf Urine WBC (0-5) /hpf Ur Squamous Epith Cells (0-5) Amorphous Sediment Urine Bacteria (NONE) Serum Ketones (Negative) EKG Data^: EKG 1: Attestation: I personally reviewed and interpreted this EKG as follows: (1512, normal EKG, regular rate at 78 bpm, no ST elevation, no ectopy.) Computer generated interpretation: Chest X-Ray 12/17/19 12:03 IMPRESSION: 1. Left lower lobe pleural effusion 2. Otherwise negative for acute abnormality Chest CTA 12/17/19 14:55 IMPRESSION: 1. No visible pulmonary embolism/pulmonary arterial thrombus. 2. Limited assessment of the upper abdominal contents reveals the appearance of moderate pelvicaliectasis left kidney with associated perinephric stranding. Radiation Dose CTDIVOL = (mGy): DLP = 523.11 (mGy-cm) Abdomen/Pelvis CT 12/17/19 18:22 IMPRESSION: 1. 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 Duplex left renal collecting system. 2. Edematous appearing left kidney with perinephric stranding and cannot exclude pyelonephritis. 3. Distended urinary bladder. 4. Please review separate report CT chest for discussion of the lower thoracic structures. Radiation Dose CTDIVOL = (mGy): DLP = 668.03 (mGy-cm) Discharge Plan Discharge Patient Disposition: Admitted As Inpatient Admit Provider: Austin Che Clinical Impression: Pyelonephritis Uncontrolled type 1 diabetes mellitus Qualifiers: Glycemic state: with hyperglycemia Qualified Code(s): E10.65 - Type 1 diabetes mellitus with hyperglycemia Condition: Stable Referrals: Elizabeth Dougherty FNP [Primary Care Provider] - Sign Out Sign Out Data: Patient Sign Out occurred on 12/17/19 at 17:08. Patient's care was discussed, and care was transferred from Brodie Siu to LORE Corona. Sign Out Comment: awaiting CT report, elevated blood glucose, has left plueral effusion Last updated by Brodie Siu FNP at 12/17/19 17:02 Coding Level of Care Code ED Process Operator for Chg Fwd Exam Comprehensive Documented by User: LORE Corona 12/17/19 20:41 HPI - General Adult General: Chief complaint: General Medical Stated complaint: PAIN IN BOTH SIDES Time Seen by Provider: 12/17/19 14:54 Source: patient Limitations: no limitations History of Present Illness: HPI narrative: Patient is a 34-year-old female with a history of type 1 diabetes with neuropathy here for complaints of bilateral flank pain that has been present over the past few days. Patient states pain seems to be greater on the left than on the right. When questioned specifically she does admit to urinary frequency, urgency, hesitancy. She has not been running fevers at home. She denies chest pain, difficulty breathing, shortness of breath. 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 Initial blood sugar over 600. Blood sugar now down to 350s. She is complaining of nausea currently. CXR showed small L effusion however this was previously present. Previous provider had ordered CTA chest. There is no PE present. Remainder of chest looked good but radiologist did comment on some L perinephric stranding. I went ahead and ordered CT renal to rule out obstruction/stone. The CT scan confirmed probable left pyelonephritis. Patient's urine confirms this. Given her uncontrolled diabetes and a lactate of 4.9 patient would most likely benefit from coming inpatient for IV antibiotics. She was started on IV Rocephin here. Will speak to Dr. Che for admission. Time: 17:31 Vital Signs: Vital signs: Vital Signs Temperature 97.4 F L 12/17/19 11:56 Pulse Rate 74 12/17/19 19:51 Respiratory Rate 16 12/17/19 19:51 Blood Pressure 100/66 12/17/19 19:51 Pulse Oximetry 96 12/17/19 19:51 [facility] - General Adult Lab Data: Labs: Lab Results 12/17/19 12/17/19 12/17/19 Range/Units 13:42 13:42 13:42 WBC 11.7 H (4.0-10.0) 10^3/ uL RBC 5.02 (4.1-5.3) 10^6/u L Hgb 13.3 (11.5-15.3) g/dL Hct 42.0 (37.0-47.0) % MCV 83.7 (81-99) fL MCH 26.5 L (28.0-34.0) pg MCHC 31.7 (30.0-36.0) g/dL RDW 12.5 (12.1-15.1) % Plt Count 389 (130-400) 10^3/c mm MPV 10.7 H (7.4-10.4) fL Neut % (Auto) 68.6 % Lymph % (Auto) 22.1 % [place] % (Auto) 7.3 % Eos % (Auto) 1.2 % Baso % (Auto) 0.5 % Neut # (Auto) 8.1 H (1.8-7.7) 10^3/u L Lymph # (Auto) 2.6 (0.8-4.8) 10^3/u L [place] # (Auto) 0.9 (0.2-0.9) 10^3/u L Eos # (Auto) 0.1 (0.0-0.8) 10^3/u L Baso # (Auto) 0.1 (0.0-0.1) 10^3/u L Nucleated RBC % (a uto) 0 % Nucleated RBCs # 0.0 /100WBC Sodium 127 L (136-145) mmol/L Potassium 4.9 (3.5-5.1) mmol/L Chloride 87 L (98-107) mmol/L Carbon Dioxide 27 (22-29) mmol/L Anion Gap 17.9 (5-19) BUN 12 (6-20) mg/dL Creatinine 0.8 (0.5-0.9) mg/dL GFR Calculation 82.6 L (90-130) mL/min Glucose 619 H* (65-115) mg/dL POC Glucose (70-110) mg/dL Calculated Osmolal ity 289 (285-295) mOsm/k g Lactic Acid (0.5-2.2) mmol/L Calcium 9.5 (8.5-10.5) mg/dL Total Bilirubin 0.2 (0.15-1.2) mg/dL AST 12 (0-32) U/L ALT 11 (0-33) U/L Alkaline Phosphata se 136 H (35-105) IU/L Troponin I 6 Hour (0-10) ng/L Troponin T Gen 5 n g/L (0-10) ng/L Troponin T 120 Min [place] (0-10) ng/L Delta Troponin T (0-10) ABS# NT-Pro-B Natriuret Pep (0-125) pg/mL Total Protein 8.4 (6.6-8.7) g/dL Albumin 3.3 L (3.5-5.2) g/dL Globulin 5.1 H (1.3-4.6) g/dL Lipase 20 (13-60) U/L HCG, Qual Negative (Negative) Urine Color (Yellow) Urine Appearance (CLEAR) Urine pH (5-7) Ur Specific Gravit y (1.005-1.030) Urine Protein (Negative) Urine Glucose (UA) (Normal) Urine Ketones (Negative) Urine Blood (Negative) Urine Nitrate (Negative) Urine Bilirubin (NEGATIVE) Urine Urobilinogen (Negative) mg/dL Ur Leukocyte Denise ase (Negative) Urine RBC (0-2) /hpf Urine WBC (0-5) /hpf Ur Squamous Epith Cells (0-5) Amorphous Sediment Urine Bacteria (NONE) Serum Ketones (Negative) 12/17/19 12/17/19 12/17/19 Range/Units 13:42 13:42 13:42 WBC (4.0-10.0) 10^3/ uL RBC (4.1-5.3) 10^6/u L Hgb (11.5-15.3) g/dL Hct (37.0-47.0) % MCV (81-99) fL MCH (28.0-34.0) pg MCHC (30.0-36.0) g/dL RDW (12.1-15.1) % Plt Count (130-400) 10^3/c mm MPV (7.4-10.4) fL Neut % (Auto) % Lymph % (Auto) % [place] % (Auto) % Eos % (Auto) % Baso % (Auto) % Neut # (Auto) (1.8-7.7) 10^3/u L Lymph # (Auto) (0.8-4.8) 10^3/u L [place] # (Auto) (0.2-0.9) 10^3/u L Eos # (Auto) (0.0-0.8) 10^3/u L Baso # (Auto) (0.0-0.1) 10^3/u L Nucleated RBC % (a uto) % Nucleated RBCs # /100WBC Sodium (136-145) mmol/L Potassium (3.5-5.1) mmol/L Chloride (98-107) mmol/L Carbon Dioxide (22-29) mmol/L Anion Gap (5-19) BUN (6-20) mg/dL Creatinine (0.5-0.9) mg/dL GFR Calculation (90-130) mL/min Glucose (65-115) mg/dL POC Glucose (70-110) mg/dL Calculated Osmolal ity (285-295) mOsm/k g Lactic Acid (0.5-2.2) mmol/L Calcium (8.5-10.5) mg/dL Total Bilirubin (0.15-1.2) mg/dL AST (0-32) U/L ALT (0-33) U/L Alkaline Phosphata se (35-105) IU/L Troponin I 6 Hour (0-10) ng/L Troponin T Gen 5 n g/L 18 H (0-10) ng/L Troponin T 120 Min [place] (0-10) ng/L Delta Troponin T (0-10) ABS# NT-Pro-B Natriuret Pep 247 H (0-125) pg/mL Total Protein (6.6-8.7) g/dL Albumin (3.5-5.2) g/dL Globulin (1.3-4.6) g/dL Lipase (13-60) U/L HCG, Qual (Negative) Urine Color (Yellow) Urine Appearance (CLEAR) Urine pH (5-7) Ur Specific Gravit y (1.005-1.030) Urine Protein (Negative) Urine Glucose (UA) (Normal) Urine Ketones (Negative) Urine Blood (Negative) Urine Nitrate (Negative) Urine Bilirubin (NEGATIVE) Urine Urobilinogen (Negative) mg/dL Ur Leukocyte Denise ase (Negative) Urine RBC (0-2) /hpf Urine WBC (0-5) /hpf Ur Squamous Epith Cells (0-5) Amorphous Sediment Urine Bacteria (NONE) Serum Ketones Negative (Negative) 12/17/19 12/17/19 12/17/19 Range/Units 15:13 16:13 16:13 WBC (4.0-10.0) 10^3/ uL RBC (4.1-5.3) 10^6/u L Hgb (11.5-15.3) g/dL Hct (37.0-47.0) % MCV (81-99) fL MCH (28.0-34.0) pg MCHC (30.0-36.0) g/dL RDW (12.1-15.1) % Plt Count (130-400) 10^3/c mm MPV (7.4-10.4) fL Neut % (Auto) % Lymph % (Auto) % [place] % (Auto) % Eos % (Auto) % Baso % (Auto) % Neut # (Auto) (1.8-7.7) 10^3/u L Lymph # (Auto) (0.8-4.8) 10^3/u L [place] # (Auto) (0.2-0.9) 10^3/u L Eos # (Auto) (0.0-0.8) 10^3/u L Baso # (Auto) (0.0-0.1) 10^3/u L Nucleated RBC % (a uto) % Nucleated RBCs # /100WBC Sodium (136-145) mmol/L Potassium (3.5-5.1) mmol/L Chloride (98-107) mmol/L Carbon Dioxide (22-29) mmol/L Anion Gap (5-19) BUN (6-20) mg/dL Creatinine (0.5-0.9) mg/dL GFR Calculation (90-130) mL/min Glucose (65-115) mg/dL POC Glucose > 600 (70-110) mg/dL Calculated Osmolal ity (285-295) mOsm/k g Lactic Acid 4.7 H* (0.5-2.2) mmol/L Calcium (8.5-10.5) mg/dL Total Bilirubin (0.15-1.2) mg/dL AST (0-32) U/L ALT (0-33) U/L Alkaline Phosphata se (35-105) IU/L Troponin I 6 Hour (0-10) ng/L Troponin T Gen 5 n g/L (0-10) ng/L Troponin T 120 Min [place] 19.73 H (0-10) ng/L Delta Troponin T 1.73 (0-10) ABS# NT-Pro-B Natriuret Pep (0-125) pg/mL Total Protein (6.6-8.7) g/dL Albumin (3.5-5.2) g/dL Globulin (1.3-4.6) g/dL Lipase (13-60) U/L HCG, Qual (Negative) Urine Color (Yellow) Urine Appearance (CLEAR) Urine pH (5-7) Ur Specific Gravit y (1.005-1.030) Urine Protein (Negative) Urine Glucose (UA) (Normal) Urine Ketones (Negative) Urine Blood (Negative) Urine Nitrate (Negative) Urine Bilirubin (NEGATIVE) Urine Urobilinogen (Negative) mg/dL Ur Leukocyte Denise ase (Negative) Urine RBC (0-2) /hpf Urine WBC (0-5) /hpf Ur Squamous Epith Cells (0-5) Amorphous Sediment Urine Bacteria (NONE) Serum Ketones (Negative) 12/17/19 12/17/19 12/17/19 Range/Units 17:19 17:49 19:36 WBC (4.0-10.0) 10^3/ uL RBC (4.1-5.3) 10^6/u L Hgb (11.5-15.3) g/dL Hct (37.0-47.0) % MCV (81-99) fL MCH (28.0-34.0) pg MCHC (30.0-36.0) g/dL RDW (12.1-15.1) % Plt Count (130-400) 10^3/c mm MPV (7.4-10.4) fL Neut % (Auto) % Lymph % (Auto) % [place] % (Auto) % Eos % (Auto) % Baso % (Auto) % Neut # (Auto) (1.8-7.7) 10^3/u L Lymph # (Auto) (0.8-4.8) 10^3/u L [place] # (Auto) (0.2-0.9) 10^3/u L Eos # (Auto) (0.0-0.8) 10^3/u L Baso # (Auto) (0.0-0.1) 10^3/u L Nucleated RBC % (a uto) % Nucleated RBCs # /100WBC Sodium (136-145) mmol/L Potassium (3.5-5.1) mmol/L Chloride (98-107) mmol/L Carbon Dioxide (22-29) mmol/L Anion Gap (5-19) BUN (6-20) mg/dL Creatinine (0.5-0.9) mg/dL GFR Calculation (90-130) mL/min Glucose (65-115) mg/dL POC Glucose 458 (70-110) mg/dL Calculated Osmolal ity (285-295) mOsm/k g Lactic Acid (0.5-2.2) mmol/L Calcium (8.5-10.5) mg/dL Total Bilirubin (0.15-1.2) mg/dL AST (0-32) U/L ALT (0-33) U/L Alkaline Phosphata se (35-105) IU/L Troponin I 6 Hour 17.60 H (0-10) ng/L Troponin T Gen 5 n g/L (0-10) ng/L Troponin T 120 Min [place] (0-10) ng/L Delta Troponin T (0-10) ABS# NT-Pro-B Natriuret Pep (0-125) pg/mL Total Protein (6.6-8.7) g/dL Albumin (3.5-5.2) g/dL Globulin (1.3-4.6) g/dL Lipase (13-60) U/L HCG, Qual (Negative) Urine Color Straw (Yellow) Urine Appearance Cloudy (CLEAR) Urine pH 5 (5-7) Ur Specific Gravit y 1.005 (1.005-1.030) Urine Protein Neg (Negative) Urine Glucose (UA) 4+ H (Normal) Urine Ketones Negative (Negative) Urine Blood Neg (Negative) Urine Nitrate Negative (Negative) Urine Bilirubin Neg (NEGATIVE) Urine Urobilinogen Norm (Negative) mg/dL Ur Leukocyte Denise ase Trace H (Negative) Urine RBC 0-4 H (0-2) /hpf Urine WBC 40-55 H (0-5) /hpf Ur Squamous Epith Cells 15-25 H (0-5) Amorphous Sediment Not Reportable Urine Bacteria 2+ H (NONE) Serum Ketones (Negative) 12/17/19 Range/Units 19:43 WBC (4.0-10.0) 10^3/ uL RBC (4.1-5.3) 10^6/u L Hgb (11.5-15.3) g/dL Hct (37.0-47.0) % MCV (81-99) fL MCH (28.0-34.0) pg MCHC (30.0-36.0) g/dL RDW (12.1-15.1) % Plt Count (130-400) 10^3/c mm MPV (7.4-10.4) fL Neut % (Auto) % Lymph % (Auto) % [place] % (Auto) % Eos % (Auto) % Baso % (Auto) % Neut # (Auto) (1.8-7.7) 10^3/u L Lymph # (Auto) (0.8-4.8) 10^3/u L [place] # (Auto) (0.2-0.9) 10^3/u L Eos # (Auto) (0.0-0.8) 10^3/u L Baso # (Auto) (0.0-0.1) 10^3/u L Nucleated RBC % (a uto) % Nucleated RBCs # /100WBC Sodium (136-145) mmol/L Potassium (3.5-5.1) mmol/L Chloride (98-107) mmol/L Carbon Dioxide (22-29) mmol/L Anion Gap (5-19) BUN (6-20) mg/dL Creatinine (0.5-0.9) mg/dL GFR Calculation (90-130) mL/min Glucose (65-115) mg/dL POC Glucose 351 (70-110) mg/dL Calculated Osmolal ity (285-295) mOsm/k g Lactic Acid (0.5-2.2) mmol/L Calcium (8.5-10.5) mg/dL Total Bilirubin (0.15-1.2) mg/dL AST (0-32) U/L ALT (0-33) U/L Alkaline Phosphata se (35-105) IU/L Troponin I 6 Hour (0-10) ng/L Troponin T Gen 5 n g/L (0-10) ng/L Troponin T 120 Min [place] (0-10) ng/L Delta Troponin T (0-10) ABS# NT-Pro-B Natriuret Pep (0-125) pg/mL Total Protein (6.6-8.7) g/dL Albumin (3.5-5.2) g/dL Globulin (1.3-4.6) g/dL Lipase (13-60) U/L HCG, Qual (Negative) Urine Color (Yellow) Urine Appearance (CLEAR) Urine pH (5-7) Ur Specific Gravit y (1.005-1.030) Urine Protein (Negative) Urine Glucose (UA) (Normal) Urine Ketones (Negative) Urine Blood (Negative) Urine Nitrate (Negative) Urine Bilirubin (NEGATIVE) Urine Urobilinogen (Negative) mg/dL Ur Leukocyte Denise ase (Negative) Urine RBC (0-2) /hpf Urine WBC (0-5) /hpf Ur Squamous Epith Cells (0-5) Amorphous Sediment Urine Bacteria (NONE) Serum Ketones (Negative) Imaging Data^: CTA Chest: Radiologist's impression: [address] [address] [address] Scan Report Signed Patient: Donita Aguilar Unit #: [id number] : 1985 Age/Sex: 34 / F ADM Date: 12/17/19 Loc: ER Room/Bed: Attending Dr: Ordering Provider/Ordering MD: Brodie Siu NP Date of Service: 12/17/19 Procedure(s): CT angio chest PE protcl [id number] Accession Number(s): [id number] Report Number: [id number] PROCEDURE INFORMATION: Exam: CT Angiography Chest With Contrast Exam date and time: 12/17/2019 4:36 PM Age: 34 years old Clinical indication: Shortness of breath; Prior surgery; Surgery type: Lung; Additional info: Cp, pleural effusion TECHNIQUE: Imaging protocol: Computed tomographic angiography of the chest with intravenous contrast. 3D rendering: MIP and/or 3D reconstructed images were created by the technologist. Radiation optimization: All CT scans at this facility use at least one of these dose optimization techniques: automated exposure control; mA and/or kV adjustment per patient size (includes targeted exams where dose is matched to clinical indication); or iterative reconstruction. Contrast material: OMNI 350; Contrast volume: 95 ml; Contrast route: INTRAVENOUS (IV); COMPARISON: CT chest w con* [id number] 10/09/2017 8:55 AM RADIATION DOSE METRICS: Total DLP (mGy-cm): 523.11 FINDINGS: Pulmonary arteries: No visible pulmonary embolism/pulmonary arterial thrombus. Aorta: The thoracic aorta is nonaneurysmal. No visible intimal flap or dissection. Lungs: Stable granuloma anterior segment right lower lobe since 10/09/2017. No active interstitial or alveolar airspace disease identified. Evidence of a previous left lower lobectomy. Postsurgical changes. Pleural space: Again note of few rare left-sided calcified pleural plaques. Heart: Cardiac structures and configuration unremarkable. No visible pericardial effusion. Mediastinal space: Calcified granulomas of antecedent disease to include calcified hilar complexes. Lymph nodes: Unremarkable. No enlarged lymph nodes. Stable calcified hilar complexes of antecedent granulomatous disease. Kidneys and ureters: Limited assessment of the upper abdominal contents reveals the appearance of moderate pelvicaliectasis left kidney with associated perinephric stranding. Bones/joints: No visible active osseous pathology. Soft tissues: Unremarkable. Other findings: A total of 815 images were acquired that will require assessment and interpretation. CT/CT angio chest PE protcl [id number] IMPRESSION: 1. No visible pulmonary embolism/pulmonary arterial thrombus. 2. Limited assessment of the upper abdominal contents reveals the appearance of moderate pelvicaliectasis left kidney with associated perinephric stranding. Radiation Dose CTDIVOL = (mGy): DLP = 523.11 (mGy-cm) Dictated By: Cam He Signed By: Cam He Signed Date/Time: 12/17/191713 DD/ 11 EKG Data^: EKG 1: Computer generated interpretation: Chest X-Ray 12/17/19 12:03 IMPRESSION: 1. Left lower lobe pleural effusion 2. Otherwise negative for acute abnormality Chest CTA 12/17/19 14:55 IMPRESSION: 1. No visible pulmonary embolism/pulmonary arterial thrombus. 2. Limited assessment of the upper abdominal contents reveals the appearance of moderate pelvicaliectasis left kidney with associated perinephric stranding. Radiation Dose CTDIVOL = (mGy): DLP = 523.11 (mGy-cm) Abdomen/Pelvis CT 12/17/19 18:22 IMPRESSION: 1. 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 Duplex left renal collecting system. 2. Edematous appearing left kidney with perinephric stranding and cannot exclude pyelonephritis. 3. Distended urinary bladder. 4. Please review separate report CT chest for discussion of the lower thoracic structures. Radiation Dose CTDIVOL = (mGy): DLP = 668.03 (mGy-cm) Discharge Plan Discharge Patient Disposition: Admitted As Inpatient Admit Provider: Austin Che Clinical Impression: Pyelonephritis Uncontrolled type 1 diabetes mellitus Qualifiers: Glycemic state: with hyperglycemia Qualified Code(s): E10.65 - Type 1 diabetes mellitus with hyperglycemia Condition: Stable Referrals: Elizabeth Dougherty FNP [Primary Care Provider] - Sign Out Sign Out Data: Patient Sign Out occurred on 12/17/19 at 17:08. Patient's care was discussed, and care was transferred from Brodie Siu to LORE Corona. Sign Out Comment: awaiting CT report, elevated blood glucose, has left plueral effusion Last updated by Brodie Siu FNP at 12/17/19 17:02 Coding Level of Care Code ED Process Operator for Chg Fwd Exam Comprehensive Documented by User: Ronny Ayala MD 12/17/19 21:22 HPI - General Adult General: Chief complaint: General Medical Stated complaint: PAIN IN BOTH SIDES Time Seen by Provider: 12/17/19 14:54 PFSH ED PFSH: Medical History (Updated 12/17/19 @ 21:18 by Austin Che MD) Anxiety Chronic headache Diabetes DKA (diabetic ketoacidoses) HTN (hypertension) Hyperglycemia Lymphadenitis Migraine headache Pancreatitis PID (pelvic inflammatory disease) Pleural effusion 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 Pyelonephritis Respiratory failure Sepsis Ureterolithiasis Surgical History History of cholecystectomy History of endoscopy History of lung surgery Social History Smoking and tobacco status: current every day smoker Course Vital Signs: Vital signs: Vital Signs Temperature 97.4 F L 12/17/19 11:56 Pulse Rate 74 12/17/19 19:51 Respiratory Rate 16 12/17/19 19:51 Blood Pressure 100/66 12/17/19 19:51 Pulse Oximetry 96 12/17/19 19:51 MDM - General Adult Lab Data: Labs: Lab Results 12/17/19 12/17/19 12/17/19 Range/Units 13:42 13:42 13:42 WBC 11.7 H (4.0-10.0) 10^3/ uL RBC 5.02 (4.1-5.3) 10^6/u L Hgb 13.3 (11.5-15.3) g/dL Hct 42.0 (37.0-47.0) % MCV 83.7 (81-99) fL MCH 26.5 L (28.0-34.0) pg MCHC 31.7 (30.0-36.0) g/dL RDW 12.5 (12.1-15.1) % Plt Count 389 (130-400) 10^3/c mm MPV 10.7 H (7.4-10.4) fL Neut % (Auto) 68.6 % Lymph % (Auto) 22.1 % [place] % (Auto) 7.3 % Eos % (Auto) 1.2 % Baso % (Auto) 0.5 % Neut # (Auto) 8.1 H (1.8-7.7) 10^3/u L Lymph # (Auto) 2.6 (0.8-4.8) 10^3/u L [place] # (Auto) 0.9 (0.2-0.9) 10^3/u L Eos # (Auto) 0.1 (0.0-0.8) 10^3/u L Baso # (Auto) 0.1 (0.0-0.1) 10^3/u L Nucleated RBC % (a uto) 0 % Nucleated RBCs # 0.0 /100WBC Sodium 127 L (136-145) mmol/L Potassium 4.9 (3.5-5.1) mmol/L Chloride 87 L (98-107) mmol/L Carbon Dioxide 27 (22-29) mmol/L Anion Gap 17.9 (5-19) BUN 12 (6-20) mg/dL Creatinine 0.8 (0.5-0.9) mg/dL GFR Calculation 82.6 L (90-130) mL/min Glucose 619 H* (65-115) mg/dL POC Glucose (70-110) mg/dL Calculated Osmolal ity 289 (285-295) mOsm/k g Lactic Acid (0.5-2.2) mmol/L Calcium 9.5 (8.5-10.5) mg/dL Total Bilirubin 0.2 (0.15-1.2) mg/dL AST 12 (0-32) U/L ALT 11 (0-33) U/L Alkaline Phosphata se 136 H (35-105) IU/L Troponin I 6 Hour (0-10) ng/L Troponin T Gen 5 n g/L (0-10) ng/L Troponin T 120 Min [place] (0-10) ng/L Delta Troponin T (0-10) ABS# NT-Pro-B Natriuret Pep (0-125) pg/mL Total Protein 8.4 (6.6-8.7) g/dL Albumin 3.3 L (3.5-5.2) g/dL Globulin 5.1 H (1.3-4.6) g/dL Lipase 20 (13-60) U/L HCG, Qual Negative (Negative) Urine Color (Yellow) Urine Appearance (CLEAR) Urine pH (5-7) Ur Specific Gravit y (1.005-1.030) Urine Protein (Negative) Urine Glucose (UA) (Normal) Urine Ketones (Negative) Urine Blood (Negative) Urine Nitrate (Negative) Urine Bilirubin (NEGATIVE) Urine Urobilinogen (Negative) mg/dL Ur Leukocyte Denise ase (Negative) Urine RBC (0-2) /hpf Urine WBC (0-5) /hpf Ur Squamous Epith Cells (0-5) Amorphous Sediment Urine Bacteria (NONE) Serum Ketones (Negative) 12/17/19 12/17/19 12/17/19 Range/Units 13:42 13:42 13:42 WBC (4.0-10.0) 10^3/ uL RBC (4.1-5.3) 10^6/u L Hgb (11.5-15.3) g/dL Hct (37.0-47.0) % MCV (81-99) fL MCH (28.0-34.0) pg MCHC (30.0-36.0) g/dL RDW (12.1-15.1) % Plt Count (130-400) 10^3/c mm MPV (7.4-10.4) fL Neut % (Auto) % Lymph % (Auto) % [place] % (Auto) % Eos % (Auto) % Baso % (Auto) % Neut # (Auto) (1.8-7.7) 10^3/u L Lymph # (Auto) (0.8-4.8) 10^3/u L [place] # (Auto) (0.2-0.9) 10^3/u L Eos # (Auto) (0.0-0.8) 10^3/u L Baso # (Auto) (0.0-0.1) 10^3/u L Nucleated RBC % (a uto) % Nucleated RBCs # /100WBC Sodium (136-145) mmol/L Potassium (3.5-5.1) mmol/L Chloride (98-107) mmol/L Carbon Dioxide (22-29) mmol/L Anion Gap (5-19) BUN (6-20) mg/dL Creatinine (0.5-0.9) mg/dL GFR Calculation (90-130) mL/min Glucose (65-115) mg/dL POC Glucose (70-110) mg/dL Calculated Osmolal ity (285-295) mOsm/k g Lactic Acid (0.5-2.2) mmol/L Calcium (8.5-10.5) mg/dL Total Bilirubin (0.15-1.2) mg/dL AST (0-32) U/L ALT (0-33) U/L Alkaline Phosphata se (35-105) IU/L Troponin I 6 Hour (0-10) ng/L Troponin T Gen 5 n g/L 18 H (0-10) ng/L Troponin T 120 Min [place] (0-10) ng/L Delta Troponin T (0-10) ABS# NT-Pro-B Natriuret Pep 247 H (0-125) pg/mL Total Protein (6.6-8.7) g/dL Albumin (3.5-5.2) g/dL Globulin (1.3-4.6) g/dL Lipase (13-60) U/L HCG, Qual (Negative) Urine Color (Yellow) Urine Appearance (CLEAR) Urine pH (5-7) Ur Specific Gravit y (1.005-1.030) Urine Protein (Negative) Urine Glucose (UA) (Normal) Urine Ketones (Negative) Urine Blood (Negative) Urine Nitrate (Negative) Urine Bilirubin (NEGATIVE) Urine Urobilinogen (Negative) mg/dL Ur Leukocyte Denise ase (Negative) Urine RBC (0-2) /hpf Urine WBC (0-5) /hpf Ur Squamous Epith Cells (0-5) Amorphous Sediment Urine Bacteria (NONE) Serum Ketones Negative (Negative) 12/17/19 12/17/19 12/17/19 Range/Units 15:13 16:13 16:13 WBC (4.0-10.0) 10^3/ uL RBC (4.1-5.3) 10^6/u L Hgb (11.5-15.3) g/dL Hct (37.0-47.0) % MCV (81-99) fL MCH (28.0-34.0) pg MCHC (30.0-36.0) g/dL RDW (12.1-15.1) % Plt Count (130-400) 10^3/c mm MPV (7.4-10.4) fL Neut % (Auto) % Lymph % (Auto) % [place] % (Auto) % Eos % (Auto) % Baso % (Auto) % Neut # (Auto) (1.8-7.7) 10^3/u L Lymph # (Auto) (0.8-4.8) 10^3/u L [place] # (Auto) (0.2-0.9) 10^3/u L Eos # (Auto) (0.0-0.8) 10^3/u L Baso # (Auto) (0.0-0.1) 10^3/u L Nucleated RBC % (a uto) % Nucleated RBCs # /100WBC Sodium (136-145) mmol/L Potassium (3.5-5.1) mmol/L Chloride (98-107) mmol/L Carbon Dioxide (22-29) mmol/L Anion Gap (5-19) BUN (6-20) mg/dL Creatinine (0.5-0.9) mg/dL GFR Calculation (90-130) mL/min Glucose (65-115) mg/dL POC Glucose > 600 (70-110) mg/dL Calculated Osmolal ity (285-295) mOsm/k g Lactic Acid 4.7 H* (0.5-2.2) mmol/L Calcium (8.5-10.5) mg/dL Total Bilirubin (0.15-1.2) mg/dL AST (0-32) U/L ALT (0-33) U/L Alkaline Phosphata se (35-105) IU/L Troponin I 6 Hour (0-10) ng/L Troponin T Gen 5 n g/L (0-10) ng/L Troponin T 120 Min [place] 19.73 H (0-10) ng/L Delta Troponin T 1.73 (0-10) ABS# NT-Pro-B Natriuret Pep (0-125) pg/mL Total Protein (6.6-8.7) g/dL Albumin (3.5-5.2) g/dL Globulin (1.3-4.6) g/dL Lipase (13-60) U/L HCG, Qual (Negative) Urine Color (Yellow) Urine Appearance (CLEAR) Urine pH (5-7) Ur Specific Gravit y (1.005-1.030) Urine Protein (Negative) Urine Glucose (UA) (Normal) Urine Ketones (Negative) Urine Blood (Negative) Urine Nitrate (Negative) Urine Bilirubin (NEGATIVE) Urine Urobilinogen (Negative) mg/dL Ur Leukocyte Denise ase (Negative) Urine RBC (0-2) /hpf Urine WBC (0-5) /hpf Ur Squamous Epith Cells (0-5) Amorphous Sediment Urine Bacteria (NONE) Serum Ketones (Negative) 12/17/19 12/17/19 12/17/19 Range/Units 17:19 17:49 19:36 WBC (4.0-10.0) 10^3/ uL RBC (4.1-5.3) 10^6/u L Hgb (11.5-15.3) g/dL Hct (37.0-47.0) % MCV (81-99) fL MCH (28.0-34.0) pg MCHC (30.0-36.0) g/dL RDW (12.1-15.1) % Plt Count (130-400) 10^3/c mm MPV (7.4-10.4) fL Neut % (Auto) % Lymph % (Auto) % [place] % (Auto) % Eos % (Auto) % Baso % (Auto) % Neut # (Auto) (1.8-7.7) 10^3/u L Lymph # (Auto) (0.8-4.8) 10^3/u L [place] # (Auto) (0.2-0.9) 10^3/u L Eos # (Auto) (0.0-0.8) 10^3/u L Baso # (Auto) (0.0-0.1) 10^3/u L Nucleated RBC % (a uto) % Nucleated RBCs # /100WBC Sodium (136-145) mmol/L Potassium (3.5-5.1) mmol/L Chloride (98-107) mmol/L Carbon Dioxide (22-29) mmol/L Anion Gap (5-19) BUN (6-20) mg/dL Creatinine (0.5-0.9) mg/dL GFR Calculation (90-130) mL/min Glucose (65-115) mg/dL POC Glucose 458 (70-110) mg/dL Calculated Osmolal ity (285-295) mOsm/k g Lactic Acid (0.5-2.2) mmol/L Calcium (8.5-10.5) mg/dL Total Bilirubin (0.15-1.2) mg/dL AST (0-32) U/L ALT (0-33) U/L Alkaline Phosphata se (35-105) IU/L Troponin I 6 Hour 17.60 H (0-10) ng/L Troponin T Gen 5 n g/L (0-10) ng/L Troponin T 120 Min [place] (0-10) ng/L Delta Troponin T (0-10) ABS# NT-Pro-B Natriuret Pep (0-125) pg/mL Total Protein (6.6-8.7) g/dL Albumin (3.5-5.2) g/dL Globulin (1.3-4.6) g/dL Lipase (13-60) U/L HCG, Qual (Negative) Urine Color Straw (Yellow) Urine Appearance Cloudy (CLEAR) Urine pH 5 (5-7) Ur Specific Gravit y 1.005 (1.005-1.030) Urine Protein Neg (Negative) Urine Glucose (UA) 4+ H (Normal) Urine Ketones Negative (Negative) Urine Blood Neg (Negative) Urine Nitrate Negative (Negative) Urine Bilirubin Neg (NEGATIVE) Urine Urobilinogen Norm (Negative) mg/dL Ur Leukocyte Denise ase Trace H (Negative) Urine RBC 0-4 H (0-2) /hpf Urine WBC 40-55 H (0-5) /hpf Ur Squamous Epith Cells 15-25 H (0-5) Amorphous Sediment Not Reportable Urine Bacteria 2+ H (NONE) Serum Ketones (Negative) 12/17/19 Range/Units 19:43 WBC (4.0-10.0) 10^3/ uL RBC (4.1-5.3) 10^6/u L Hgb (11.5-15.3) g/dL Hct (37.0-47.0) % MCV (81-99) fL MCH (28.0-34.0) pg MCHC (30.0-36.0) g/dL RDW (12.1-15.1) % Plt Count (130-400) 10^3/c mm MPV (7.4-10.4) fL Neut % (Auto) % Lymph % (Auto) % [place] % (Auto) % Eos % (Auto) % Baso % (Auto) % Neut # (Auto) (1.8-7.7) 10^3/u L Lymph # (Auto) (0.8-4.8) 10^3/u L [place] # (Auto) (0.2-0.9) 10^3/u L Eos # (Auto) (0.0-0.8) 10^3/u L Baso # (Auto) (0.0-0.1) 10^3/u L Nucleated RBC % (a uto) % Nucleated RBCs # /100WBC Sodium (136-145) mmol/L Potassium (3.5-5.1) mmol/L Chloride (98-107) mmol/L Carbon Dioxide (22-29) mmol/L Anion Gap (5-19) BUN (6-20) mg/dL Creatinine (0.5-0.9) mg/dL GFR Calculation (90-130) mL/min Glucose (65-115) mg/dL POC Glucose 351 (70-110) mg/dL Calculated Osmolal ity (285-295) mOsm/k g Lactic Acid (0.5-2.2) mmol/L Calcium (8.5-10.5) mg/dL Total Bilirubin (0.15-1.2) mg/dL AST (0-32) U/L ALT (0-33) U/L Alkaline Phosphata se (35-105) IU/L Troponin I 6 Hour (0-10) ng/L Troponin T Gen 5 n g/L (0-10) ng/L Troponin T 120 Min [place] (0-10) ng/L Delta Troponin T (0-10) ABS# NT-Pro-B Natriuret Pep (0-125) pg/mL Total Protein (6.6-8.7) g/dL Albumin (3.5-5.2) g/dL Globulin (1.3-4.6) g/dL Lipase (13-60) U/L HCG, Qual (Negative) Urine Color (Yellow) Urine Appearance (CLEAR) Urine pH (5-7) Ur Specific Gravit y (1.005-1.030) Urine Protein (Negative) Urine Glucose (UA) (Normal) Urine Ketones (Negative) Urine Blood (Negative) Urine Nitrate (Negative) Urine Bilirubin (NEGATIVE) Urine Urobilinogen (Negative) mg/dL Ur Leukocyte Denise ase (Negative) Urine RBC (0-2) /hpf Urine WBC (0-5) /hpf Ur Squamous Epith Cells (0-5) Amorphous Sediment Urine Bacteria (NONE) Serum Ketones (Negative) EKG Data^: EKG 1: Computer generated interpretation: Chest X-Ray 12/17/19 12:03 IMPRESSION: 1. Left lower lobe pleural effusion 2. Otherwise negative for acute abnormality Chest CTA 12/17/19 14:55 IMPRESSION: 1. No visible pulmonary embolism/pulmonary arterial thrombus. 2. Limited assessment of the upper abdominal contents reveals the appearance of moderate pelvicaliectasis left kidney with associated perinephric stranding. Radiation Dose CTDIVOL = (mGy): DLP = 523.11 (mGy-cm) Abdomen/Pelvis CT 12/17/19 18:22
--- NOTE | 2019-12-17 15:16 | PC.NURSE ---
Patient blood glucose read as HI on glucometer. Physician has been notified.
[2019-12-17 15:19] LABS: Glucose Point of Care > 600 mg/dL (70-110)
[2019-12-17 15:22] LABS: Troponin T (5th) Once 18 ng/L (0-10)
[2019-12-17 15:30] LABS: NT Pro B Type Natriuretic Pept 247 pg/mL (0-125)
[2019-12-17 16:04] LABS: Ketone (Acetest) Serum Negative (Negative)
[2019-12-17] MEDS: sodium chloride 0.9% 1,000 ML 999 ML IV ×2 (16:14→22:36)
[2019-12-17] MEDS: ondansetron 2 mg/ML SDV 2 mL 4 MG IVP ×2 (16:15→17:48)
[2019-12-17] MEDS: morphine 4 mg/mL SDV 1 mL 2 MG IVP ×2 (16:16→22:42)
[2019-12-17 16:55] LABS: Troponin 5 2HR 19.73 ng/L (0-10)
[2019-12-17] MEDS: iohexol 350 mg/mL 100 mL Btl IV (16:55)
[2019-12-17 17:22] LABS: Glucose Point of Care 458 mg/dL (70-110)
--- NOTE | 2019-12-17 17:25 | ECG_ITS ---
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 Measurements Intervals [place] Rate: 78 P: 14 NC: 141 QRS: 76 QRSD: 80 T: 7 QT: 375 QTc: 428 Interpretive Statements SINUS RHYTHM NONSPECIFIC T-WAVE ABNORMALITY Compared to ECG 12/17/2019 15:12:43 T-wave abnormality now present Electronically Signed On 12-17-2019 21:14:55 CDT by Austin Gallegos M.D. [id number]
[2019-12-17 17:30] LABS: Lactic Sepsis W/Reflex 4.7 mmol/L (0.5-2.2)
[2019-12-17 17:50] LABS: Troponin 5 2HR Delta 1.73 ABS# (0-10)
--- NOTE | 2019-12-17 17:57 | PC.NURSE ---
EKG done at 1753 and shown to ER doctor
--- NOTE | 2019-12-17 18:22 | CTR_ITS ---
PROCEDURE INFORMATION: Exam: CT Abdomen And Pelvis Without Contrast Exam date and time: 12/17/2019 7:09 PM Age: 34 years old Clinical indication: Abdominal pain; Prior surgery; Surgery type: Gb; Additional info: L perinephric stranding TECHNIQUE: Imaging protocol: Computed tomography of the abdomen and pelvis without contrast. Radiation optimization: All CT scans at this facility use at least one of these dose optimization techniques: automated exposure control; mA and/or kV adjustment per patient size (includes targeted exams where dose is matched to clinical indication); or iterative reconstruction. COMPARISON: CT abdomen pelvis w con* [id number] 06/30/2019 6:54 PM RADIATION DOSE METRICS: Total DLP (mGy-cm): 668.03 FINDINGS: Liver: Unremarkable. No mass. Gallbladder and bile ducts: Status post cholecystectomy. Pancreas: Normal. No ductal dilation. Spleen: Normal. No splenomegaly. Adrenals: Normal. No mass. Kidneys and ureters: Duplex left renal collecting system with the duplex ureters appearing to fuse just before the left ureterovesical orifice. Evidence of cortical scarring in the inferior pole of the left kidney. Mild pelvicaliectasis of the inferior pole moiety as well as ureterectasis. Distended urinary bladder. Suspected chronic left inferior pole ureterovesical reflux. No pelvicaliectasis of the superior pole moiety of the left kidney. Compared to the last examination of 06/30/2019 of the left kidney appears edematous. There is perinephric stranding. Cannot exclude left pyelonephritis. Right kidney unremarkable. No right hydronephrosis. Stomach and bowel: Unremarkable. No obstruction. No mucosal thickening. Appendix: The appendix is noninflamed. Intraperitoneal space: Unremarkable. No free air. No significant fluid collection. Vasculature: The abdominal aorta is nonaneurysmal. Minimal arterial sclerotic disease. Lymph nodes: Unremarkable. No enlarged lymph nodes. Bladder: Distended urinary bladder. No filling defect. Reproductive: Unremarkable as visualized. Bones/joints: Bilateral spondylolysis L5/S1 with minimal anterior spondylolisthesis. Soft tissues: Unremarkable. CT/CT kidney stone [id number] IMPRESSION: 1. 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 Duplex left renal collecting system. 2. Edematous appearing left kidney with perinephric stranding and cannot exclude pyelonephritis. 3. Distended urinary bladder. 4. Please review separate report CT chest for discussion of the lower thoracic structures. Radiation Dose CTDIVOL = (mGy): DLP = 668.03 (mGy-cm)
[2019-12-17] MEDS: morphine 4 mg/mL SDV 1 mL IVP (18:26)
[2019-12-17 18:36] LABS: Ketones Urine Negative (Negative); Protein Urine Neg (Negative); Specific Gravity, Urine 1.005 (1.005-1.030); Urine Appearance Cloudy (CLEAR); Urine Color Straw (Yellow); pH Urine 5 (5-7)
[2019-12-17 18:37] LABS: Add Urine Microscopic? YES; Bilirubin Urine Neg (NEGATIVE); Blood Urine Neg (Negative); Glucose Urine UA 4+ (Normal); Leukocyte Esterase Urine Trace (Negative); Nitrate Urine Negative (Negative); Urobilinogen Urine Norm (Negative)
[2019-12-17 18:40] LABS: Add Urine Culture? No; Bacteria Urine 2+; RBC Urine 0-4 /hpf (0-2); Squamous Epithelial Cell Urine 15-25 (0-5); WBC Urine 40-55 /hpf (0-5)
[2019-12-17] MEDS: cefTRIAXone 1,000 MG in sodium chloride 0.9% (plus) 50 ML 100 MG IV (19:01)
--- NOTE | 2019-12-17 19:44 | PC.NURSE ---
fingerstick glucose 351
[2019-12-17 19:46] LABS: Glucose Point of Care 351 mg/dL (70-110)
--- NOTE | 2019-12-17 20:43 | PC.NURSE ---
called report to ROLA Boyd on med surg
--- NOTE | 2019-12-17 20:47 | PM.HP ---
Providers/Chief Complaint Admitting Physician: Austin Che MD Primary Care Provider: SUZANNE Dias Chief Complaint: PAIN IN BOTH SIDES History of Present Illness Donita Aguilar is a 34 year old female carries diagnosis of type 1 diabetes, pelvic inflammatory disease in the past came in with chief complaint of flank pain. Patient stating that her symptoms started about few days ago with urinary frequency, she did not notice any fever, or dysuria. Today she started experiencing flank pain which started with right side, by the time she came to the ED her left side was getting worse. She also noticed nausea, chills and dyspareunia, she is denying vaginal discharge. She denies previous history of nephrolithiasis. Diagnosis in the ER revealed left-sided pyelonephritis with sepsis. Her CTA was ordered by the ER because initially flank pain was misinterpreted as chest pain. However CT is negative for PE. CT abdomen is consistent with ureterovesical reflux and left-sided perinephric stranding. She has pseudohyponatremia from hyperglycemia, she has received 18 units of insulin along 1 L of normal saline only. I have given her 1 g of a azithromycin, requested gonococcal chlamydia work-up and start her on ceftriaxone 1 g a day. Review of Systems Const: Reports: chills, body aches and fatigue; Denies: fever(s) or change in sleep pattern Eyes: Denies: change in vision ENMT: Denies: throat pain Card: Denies: chest pain Resp: Denies: dyspnea GI: Reports: abdominal pain and nausea; Denies: vomiting, coffee ground emesis, dysphagia, diarrhea or constipation : Reports: flank pain and urinary frequency Musc: Denies: neck pain Skin/Breast: Denies: rash Neuro: Denies: headache(s) Psych: Denies: anxiety Endo: Reports: polyuria and polydipsia Ramiro/Lymph: Denies: easy bruising All/Imm: Denies: urticaria Medications/Allergies Home Medications Medication Instructions Recorded Confirmed Last Taken Type Lantus Solostar U-100 Insulin 50 unit SUBCUT BID 06/30/19 12/17/19 12/16/19 History gabapentin 300 mg PO Q6H PRN 06/30/19 12/17/19 12/15/19 History insulin lispro [Humalog KwikPen See Rx Instructions .ROUTE .COMPLEX 06/30/19 12/17/19 Unknown History Insulin] ibuprofen 400 mg PO PRN 12/17/19 12/17/19 Unknown History Allergies Allergy/AdvReac Type Severity Reaction Status Date / Time No Known Allergies Allergy Verified 12/17/19 15:06 PFSH Acute PFSH: Medical History Anxiety Chronic headache Diabetes DKA (diabetic ketoacidoses) HTN (hypertension) Hyperglycemia Lymphadenitis Migraine headache Pancreatitis PID (pelvic inflammatory disease) Pleural effusion 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 Pyelonephritis Respiratory failure Sepsis Ureterolithiasis Surgical History History of cholecystectomy History of endoscopy History of lung surgery Social History (Updated 12/17/19 @ 21:23 by Austin Che MD) Smoking and tobacco status: current every day smoker Household members: spouse Housing: House Female Reproductive History: Date of last menstrual period: 11/19/19 Vitals/I&O/Wt Last Vital Signs Temp 97.4 F L 12/17/19 11:56 Pulse 74 12/17/19 19:51 Resp 16 12/17/19 19:51 BP 100/66 12/17/19 19:51 Pulse Ox 96 12/17/19 19:51 12/17/19 12/17/19 12/17/19 06:59 14:59 22:59 Intake Total 1050 / 1050 Balance 1050 / 1050 Weight last 48 hrs Weight 61.235 kg Physical Exam Narrative: EXAM NARRATIVE: Head to toe examination Appears stated age Does not look dehydrated S1, S2 no tachycardia Abdomen soft, nontender, left-sided CVA tenderness greater than right No swelling of legs no signs of edema Lungs are clear to auscultation Neurologically nonfocal exam EOMI, PERRLA Appropriate mood and affect Gynecological exam deferred Data : 12/17/19 13:42 12/17/19 13:42 A&P Assessment and plan (1) Pyelonephritis: Status: Acute (2) Uncontrolled type 1 diabetes mellitus: Status: Acute Qualifiers: Glycemic state: with hyperglycemia Qualified Code(s): E10.65 - Type 1 diabetes mellitus with hyperglycemia (3) Hyponatremia: Status: Acute (4) Sepsis: Status: Acute (5) Hyperglycemia: Status: Acute Additional A&P Information Sepsis due to left-sided pyelonephritis Sepsis criteria met with leukocytosis, high lactic acid, low normal blood pressure and positive source of infection Etiology seems to be vesicoureteral reflux Patient is denying dysuria but endorsed urinary frequency which could be secondary to hyperglycemia I am going to treat her with 1 g of azithromycin for possible PID as she has history of pelvic inflammatory disease, her spouse is endorsing new onset of genital rash as well Ceftriaxone 1 g daily Chlamydia and gonorrhea work-up ordered No urolithiasis on CT abdomen Hyperglycemia without DKA Management with long-acting insulin, normal saline and sliding scale for now No signs of DKA I would give her another bolus of normal saline for hyperglycemia We will check hemoglobin A1c level Pseudohyponatremia: No neurological symptoms Full code Consistent carb DVT prophylaxis Lovenox Attestations Medical Necessity Statement*: Anticipating stay in the hospital cross more than 2 midnights continued IV antibiotics and fluids for hyperglycemia and sepsis due to left-sided pyelonephritis Time Spent in Patient Care: (>than 50% of time spent in counselling and/or direct pt care on unit). 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
[2019-12-17 21:43] LABS: Troponin 5 6HR Delta -0.4 ng/L (0-12)
[2019-12-17 22:21] LABS: Glucose Point of Care 346 mg/dL (70-110)
[2019-12-17] MEDS: enoxaparin 40 mg/0.4 mL Syringe SUBCUT (22:33)
[2019-12-17 23:15] LABS: Estmated Average Glucose 427; Hemoglobin A1C 16.5 % (4.0-6.0)
[2019-12-17] MEDS: sodium chloride 0.9% 1,000 ML 100 ML IV (23:55)
[2019-12-18] VITALS (9 sets, daily range): BP systolic 96–116; BP diastolic 63–79; PULSE 60–82; RESP 15–20; TEMP 36.3–37.2; O2SAT 96–99
[2019-12-18 07:00] LABS: Glucose Point of Care 361 mg/dL (70-110)
[2019-12-18] MEDS: insulin glargine 100 units/1 mL 50 UNIT SUBCUT ×2 (08:04→17:24)
[2019-12-18] MEDS: cefTRIAXone 1,000 MG in sodium chloride 0.9% (plus) 50 ML 100 MG IV ×2 (08:04→17:25)
[2019-12-18] MEDS: morphine 4 mg/mL SDV 1 mL 2 MG IVP ×3 (08:28→21:59)
--- NOTE | 2019-12-18 11:09 | PC.CHAP ---
Pastoral Care Encounter/Spiritual Assessment Type of Contact [] Declined associate professor of literacy visit [] Patient/Family/Request visit [] Outpatient visit [] Follow-up visit [] Physician referral [] Code/Alert [] Routine visit [] Staff referral [] Actively dying [x] Patient sleeping [] Family support [] [] Out of room [] Palliative care [] [] Receiving care in room [] Pre-surgical visit [] Trauma [] Long length of stay [] ICU visit [] Other: Relational/Emotional Strength [] Patient feels connected with others/family/visitors/staff [] Distress [] Loneliness/isolation [] Abandonment Spirituality of Patient [] Person of M[place] [] Attends Spiritism of their [place] [] Believes in Prayer [] Reads Bible or Evangelical materials [] There are Spiritual issues to be addressed Geriatric Personal Care Aide Interventions [] Prayer [] Active listening [] Non-anxious presence [] Spiritual/emotional support [] Crisis/trauma care [] Spiritual counseling [] Bereavement support [] Provided bereavement packet [] Provided Bible/devotional materials [] Provided toy/stuffed animal, coloring book to patient or family member [] Provided Communion [] Anointing/[place] [] Salvation [x] Completed spiritual assessment [] Other: Impact on Illness or Injury [] Angry [] Fearful [] Anxious [] Often cries [] Exhaustion [] Unable to work [] Unable to attend anabaptism [] Unable to walk/stand [] Unable to read [] Unable to drive [] Unable to eat/drink [] Unable to sleep [] Unable to be with family [] Patient intubated [] Other: Summary Time spent with patient
[2019-12-18 11:12] LABS: Glucose Point of Care 390 mg/dL (70-110)
--- NOTE | 2019-12-18 13:52 | P.PN_ITS ---
Subjective Subjective: Interval history: Donita reports she feels maybe a little bit better this morning. Still having significant left flank pain. History and physical reviewed. Medications: Reviewed: Yes Vitals/I&O/Wt Last Vital Signs Temp 98.2 F 12/18/19 11:13 Pulse 68 12/18/19 11:13 Resp 16 12/18/19 11:13 BP 104/70 12/18/19 11:13 Pulse Ox 98 12/18/19 11:13 12/17/19 12/18/19 12/18/19 22:59 06:59 14:59 Intake Total 1050 / 1050 1220 / 2270 720 / 720 Output Total 400 / 400 Balance 1050 / 1050 1220 / 2270 320 / 320 Weight last 48 hrs Weight 61.235 kg Physical Exam Narrative: EXAM NARRATIVE: General exam no apparent distress Cardiovascular regular rhythm without murmur Lungs clear Abdomen is soft, positive bowel sounds Extremities no cyanosis clubbing or edema CVA tenderness is noted on the left. Data : 12/17/19 13:42 12/17/19 13:42 A&P Assessment and plan (1) Pyelonephritis: Placed on Rocephin. Changed to 1 gram IV q 12h CT consistent with left-sided pyelonephritis, duplicate collecting system and likely reflux. Status: Acute (2) Uncontrolled type 1 diabetes mellitus: Continue long-acting insulin in the form of Lantus 50 units twice daily Change to aggressive sliding scale Status: Acute Qualifiers: Glycemic state: with hyperglycemia Qualified Code(s): E10.65 - Type 1 diabetes mellitus with hyperglycemia (3) Hyponatremia: Pseudohyponatremia from hyperglycemia Status: Acute (4) Sepsis: Already improving Status: Acute (5) Hyperglycemia: Status: Acute Additional A&P Information She was also given azithromycin 1 g for concern of possible PID. Chlamydia and gonorrhea testing pending Full code DVT prophylaxis with Lovenox Attestations Medical Necessity Statement*: Needs continued hospitalization for IV antibiotics secondary to pyelonephritis. 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
[2019-12-18] MEDS: sodium chloride 0.9% 1,000 ML 100 ML IV (14:31)
[2019-12-18 17:30] LABS: Glucose Point of Care 317 mg/dL (70-110)
[2019-12-18 21:24] LABS: Glucose Point of Care 333 mg/dL (70-110)
[2019-12-18] MEDS: enoxaparin 40 mg/0.4 mL Syringe SUBCUT (21:42)
[2019-12-19] MEDS: sodium chloride 0.9% 1,000 ML 100 ML IV ×2 (01:49→12:41)
[2019-12-19 03:36] VITALS: BP 103/69; PULSE 74; RESP 16; TEMP 37.1; O2SAT 98
[2019-12-19 03:37] LABS: Basophils # 0.1 10^3/uL (0.0-0.1); Basophils % 0.5 %; Eosinophils # 0.2 10^3/uL (0.0-0.8); Eosinophils % 2.2 %; Hematocrit 39.1 % (37.0-47.0); Hemoglobin 12.3 g/dL (11.5-15.3); Lymphocytes # 3.2 10^3/uL (0.8-4.8); Lymphocytes % 33.5 %; Mean Corpuscular HGB Conc 31.5 g/dL (30.0-36.0); Mean Corpuscular Hemoglobin 27.1 pg (28.0-34.0); Mean Corpuscular Volume 86.1 fL (81-99); Mean Platelet Volume 10.8 fL (7.4-10.4); Monocytes # 0.7 10^3/uL (0.2-0.9); Monocytes % 7.4 %; Neutrophils # 5.3 10^3/uL (1.8-7.7); Neutrophils % 56.1 %; Nucleated Red Blood Cells % 0 %; Platelet Count 291 10^3/cmm (130-400); Red Blood Count 4.54 10^6/uL (4.1-5.3); Red Cell Distribution Width 12.6 % (12.1-15.1); White Blood Count 9.4 10^3/uL (4.0-10.0)
[2019-12-19 04:29] LABS: Anion Gap 14.1 (5-19); Blood Urea Nitrogen 16 mg/dL (6-20); Carbon Dioxide 26 mmol/L (22-29); Chloride 100 mmol/L (98-107); Glomerular Filtration Rate 96.4 mL/min (90-130); Glucose 134 mg/dL (65-115); Osmolality Calculated 280 mOsm/kg (285-295); Potassium 4.1 mmol/L (3.5-5.1); Sodium 136 mmol/L (136-145)
[2019-12-19] MEDS: cefTRIAXone 1,000 MG in sodium chloride 0.9% (plus) 50 ML 100 MG IV ×2 (05:04→17:46)
--- NOTE | 2019-12-19 06:10 | PC.NURSE ---
Shift Summary Pt slept well throughout the night. pt only requested pain medication once and was given a heating pack for pain.
[2019-12-19 07:15] LABS: Glucose Point of Care 121 mg/dL (70-110)
[2019-12-19 07:43] VITALS: BP 116/82; PULSE 70; RESP 20; TEMP 36.8; O2SAT 99
[2019-12-19 08:16] VITALS: RESP 20
[2019-12-19] MEDS: morphine 4 mg/mL SDV 1 mL 2 MG IVP (08:16)
[2019-12-19] MEDS: insulin glargine 100 units/1 mL 50 UNIT SUBCUT ×2 (10:15→17:47)
[2019-12-19 10:41] LABS: Glucose Point of Care 213 mg/dL (70-110)
[2019-12-19 11:22] VITALS: BP 108/71; PULSE 78; RESP 18; TEMP 36.9; O2SAT 98
--- NOTE | 2019-12-19 14:41 | P.PN_ITS ---
Subjective Subjective: Interval history: Donita reports she still has quite a bit of left flank pain. No nausea. Medications: Reviewed: Yes Vitals/I&O/Wt Last Vital Signs Temp 98.4 F 12/19/19 11:22 Pulse 78 12/19/19 11:22 Resp 18 12/19/19 11:22 BP 108/71 12/19/19 11:22 Pulse Ox 98 12/19/19 11:22 12/18/19 12/19/19 12/19/19 22:59 06:59 14:59 Intake Total 270 / 2040 1450 / 3490 1600 / 1600 Output Total 300 / 700 Balance 270 / 1640 1150 / 2790 1600 / 1600 Physical Exam Narrative: EXAM NARRATIVE: General exam no apparent distress Cardiovascular regular rhythm without murmur Lungs clear Abdomen is soft, positive bowel sounds Extremities no cyanosis clubbing or edema CVA tenderness is noted on the left. This is perhaps slightly less than yesterday. Data : 12/19/19 02:48 12/19/19 02:48 Micro: Microbiology 12/17/19 17:49 Urine Culture - Preliminary Urine,Clean Catch Strep agalactiae - (group b) 12/17/19 17:49 Chlamydia trachomatis (SHARI) - Final Urine Random Neisseria gonorrhoeae (SHARI) - Final A&P Assessment and plan (1) Pyelonephritis: Placed on Rocephin. Changed to 1 gram IV q 12h CT consistent with left-sided pyelonephritis, duplicate collecting system and likely reflux. She is improved slightly Urine culture demonstrates strep agalactiae. According to her antibiogram, ceftriaxone is 100% sensitive for this. Complaining of some difficulty with urination today. Bladder scan demonstrates approximately 240 cc. Morphine stopped as this is likely contributing. Changed to hydrocodone. Nurse will bladder scan again if patient has recurrence of symptoms. Status: Acute (2) Uncontrolled type 1 diabetes mellitus: Continue long-acting insulin in the form of Lantus 50 units twice daily Continue aggressive sliding scale Blood sugars show improved control Status: Acute Qualifiers: Glycemic state: with hyperglycemia Qualified Code(s): E10.65 - Type 1 diabetes mellitus with hyperglycemia (3) Hyponatremia: Pseudohyponatremia from hyperglycemia. This is resolved Status: Acute (4) Sepsis: Resolved Status: Acute (5) Hyperglycemia: Status: Acute Additional A&P Information She was also given azithromycin 1 g for concern of possible PID. Chlamydia and gonorrhea testing negative Full code DVT prophylaxis with Lovenox Hopefully discharge tomorrow if improved. Attestations Medical Necessity Statement*: Needs continued IV antibiotics for left pyelonephritis, as still with severe left flank pain. 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
[2019-12-19 14:53] VITALS: BP 129/85; PULSE 75; RESP 20; TEMP 36.9; O2SAT 99
[2019-12-19 16:46] LABS: Glucose Point of Care 268 mg/dL (70-110)
[2019-12-19 20:00] VITALS: BP 111/72; PULSE 83; RESP 20; TEMP 36.8; O2SAT 98
[2019-12-19 21:02] LABS: Glucose Point of Care 221 mg/dL (70-110)
[2019-12-19] MEDS: HYDROcodone-acetaminophen 5-325 mg Tablet 1 TAB PO (21:47)
[2019-12-19] MEDS: enoxaparin 40 mg/0.4 mL Syringe SUBCUT (22:33)
[2019-12-20] VITALS: BP 100/64; PULSE 81; RESP 16; TEMP 36.8; O2SAT 96
[2019-12-20] MEDS: sodium chloride 0.9% 1,000 ML 100 ML IV (01:54)
[2019-12-20 03:40] VITALS: BP 102/68; PULSE 70; RESP 18; TEMP 36.4; O2SAT 97
[2019-12-20] MEDS: cefTRIAXone 1,000 MG in sodium chloride 0.9% (plus) 50 ML 100 MG IV (05:33)
--- NOTE | 2019-12-20 05:58 | PC.NURSE ---
Shift Summary pt slept well throughout the night with only one c/o pain requiring oral pain meds. pt had good urine output that was clear.
[2019-12-20 06:57] LABS: Glucose Point of Care 104 mg/dL (70-110)
[2019-12-20 07:02] VITALS: BP 123/78; PULSE 75; RESP 18; O2SAT 100
[2019-12-20] MEDS: HYDROcodone-acetaminophen 5-325 mg Tablet 1 TAB PO (07:56)
[2019-12-20] MEDS: insulin glargine 100 units/1 mL 50 UNIT SUBCUT (07:56)
[2019-12-20 10:58] LABS: Glucose Point of Care 197 mg/dL (70-110)
--- NOTE | 2019-12-20 11:01 | PM.DCS ---
Discharge Providers Date of Admission: 12/17/19 19:49 Date of Discharge: December 20, 2019 Attending Provider at Admission: Austin Che MD Attending Provider at Discharge: Ruben Rust MD Primary Care Provider: SUZANNE Dias Diagnoses at Discharge Discharge Diagnosis (1) Pyelonephritis: Status: Acute Problem details: Strep agalactiae grew from urine. Discharged on Levaquin. Urology follow-up. Has some element of urine retention. Started on Flomax. (2) Uncontrolled type 1 diabetes mellitus: Status: Acute Qualifiers: Glycemic state: with hyperglycemia Qualified Code(s): E10.65 - Type 1 diabetes mellitus with hyperglycemia (3) Hyponatremia: Status: Acute Problem details: Resolved (4) Sepsis: Status: Acute Problem details: Resolved (5) Hyperglycemia: Status: Acute Reason for Visit Reason for Visit: PAIN IN BOTH SIDES Hospital Course Hospital Course: Donita is a 34-year-old female who presented to the hospital with left flank pain. She was ultimately found to have pyelonephritis, with urine positive for infection as well as evidence of this on CT scan. IV antibiotics in the form of ceftriaxone was initiated. Urine ultimately grew strep agalactiae. There was some concern with urine retention while in the hospital with bladder scan showing approximately 250 cc of urine. Flomax was initiated. While in the hospital she remained afebrile, could take p.o., and white blood cell count was not elevated. GC and Chlamydia testing was performed and negative. 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 At that time further testing regarding urine retention will occur. She will follow-up sooner for any worsening. She will follow-up with her primary care provider in 3 to 5 days. Physical Exam Narrative: EXAM NARRATIVE: General exam no apparent distress Cardiovascular regular rate rhythm without murmur Lungs clear Abdomen is soft with positive bowel sounds Extremities no cyanosis clubbing or edema Back with mild CVA tenderness Discharge Data Data Completed and Pending: Completed Studies During Hospitalization Category Date Time Status CT angio chest PE protcl 72371 Urge nt Cat Scan 12/17/19 14:[address] kidney stone 7 [id number] Urgent Cat Scan 12/17/19 18:22 Completed XR chest 2V* 7104 6 Stat Exams 12/17/19 12:03 Completed Labs from last 24 hours 12/20/19 12/20/19 12/19/19 10:35 06:43 20:57 POC Glucose 197 104 221 12/19/19 16:37 POC Glucose 268 Vitals: Last Vital Signs Temp 97.5 F L 12/20/19 03:40 Pulse 75 12/20/19 07:02 Resp 18 12/20/19 07:02 BP 123/78 12/20/19 07:02 Pulse Ox 100 12/20/19 07:02 Discharge Plan Discharge Patient Disposition: Home, Self-Care Condition: Stable Prescriptions: New hydrocodone-acetaminophen 5-325 mg tablet 1 tab PO Q6H PRN (Reason: pain) Qty: 20 RF: 0 levofloxacin [Levaquin] 500 mg tablet 500 mg PO DAILY 10 Days Qty: 10 RF: 0 tamsulosin [Flomax] 0.4 mg capsule 0.4 mg PO DAILY Qty: 30 RF: 0 Continued gabapentin 300 mg Capsule 300 mg PO Q6H PRN (Reason: unknown) RF: 0 insulin lispro [Humalog KwikPen Insulin] 100 unit/mL Insulin Pen See Rx Instructions .ROUTE .COMPLEX RF: 0 Lantus Solostar U-100 Insulin 100 unit/mL (3 mL) Insulin Pen 50 unit SUBCUT BID RF: 0 Discontinued ibuprofen 200 mg Tablet 400 mg PO PRN RF: 0 Discharge Orders: Discharge Order (Routine); Ordered 12/20/19 Ordered By: Ruben Rust Referrals: Elizabeth Dougherty FNP [Primary Care Provider] - 4-7 days Jimmy Rubio MD [Physician] - 7-10 days (Follow-up with urology 7 to 10 days secondary to pyelonephritis, duplicate ureteral system, urine retention) Discharge Diet: Cardiac Discharge Activity: Increase activity as tolerated Activity Restrictions/Additional Instructions: Take all medicine as prescribed Encourage fluids Monitor your blood sugar closely, and report to your primary care provider Discharge Attestations Time Spent in Discharge Care*: greater than 30 min Quality Metrics Clinical Quality Measures During this hospital stay, did patient experience: None Coding Level of Care Code Acute Anthropologist Physical for g Fwd Diagnoses Pyelonephritis N12 Uncontrolled type 1 diabetes mellitus E10.65 Glycemic state: with hyperglycemia Hyponatremia E87.1 Sepsis A41.9 Hyperglycemia R73.9
[2019-12-20 11:21] VITALS: BP 123/78; PULSE 75; RESP 18; O2SAT 100
[2019-12-20 11:26] VITALS: BP 125/82; PULSE 79; RESP 18; TEMP 36.6; O2SAT 97
[2019-12-20] MEDS: tamsulosin 0.4 mg Capsule PO (11:55)
[2019-12-20 14:18] VITALS: BP 125/82; PULSE 79; RESP 18; TEMP 36.6; O2SAT 97
== END 2019-12-20 12:45 | disposition home or self-care (01) | DRG 872 ==
LOC: ER 20:33 → MEDSURG 20:40
PROVIDERS: Nurse Practitioner Family; Physician Assistant; Admitting Provider Internal Medicine; PCP Nurse Practitioner Family; Visit Provider Internal Medicine
DX: A41.9 Sepsis, unspecified organism (principal); E87.1 Hypo-osmolality and hyponatremia; N10 Acute pyelonephritis; E10.65 Type 1 diabetes mellitus with hyperglycemia; B95.1 Streptococcus, group B, as the cause of diseases classified elsewhere; N73.9 Female pelvic inflammatory disease, unspecified; F41.9 Anxiety disorder, unspecified; I10 Essential (primary) hypertension; Z86.14 Personal history of Methicillin resistant Staphylococcus aureus infection; F17.210 Nicotine dependence, cigarettes, uncomplicated
CPT/HCPCS: 12345; 36415; 36416; 71046; 71275; 74176; 80048; 80053; 81001; 82009; 82962; 83036; 83605; 83690; 83880; 84484; 84703; 85025; 87086; 87491; 87591; 93005; 96372; 96375; 99284; A9270; J0456; J0696; J1650; J1815; J2270; J2405; J7030; J7040; Q9967

== ENCOUNTER 2020-01-28 14:13 | Emergency (ER) | payer MEDICAID, SELFPAY ==
[2020-01-28 14:20] VITALS: BP 86/65; PULSE 92; RESP 16; TEMP 37; O2SAT 98; BMI 23.4
--- NOTE | 2020-01-28 14:20 | XR_ITS ---
WS: [id number] PORTABLE CHEST HISTORY: sob COMPARISON: 12/17/2019 Mild obscuration of the LEFT hemidiaphragm. There is a small LEFT pleural effusion which is similar t o 12/17/2019 without progression. RIGHT lung is clear. Cardiac size: Normal. Mediastinum/Aorta: Normal mediastinum. No osseous abnormality seen. XR/XR chest 1V portable [id number] IMPRESSION: Very small LEFT pleural effusion. Otherwise no change in appearance the lungs a t 12/17/2019.
--- NOTE | 2020-01-28 14:27 | ED_ITS ---
HPI - Headache General: Chief Complaint: Headache Stated Complaint: benavides, neck pain,sob Time Seen by Provider: 01/28/20 14:20 Source: patient Mode of arrival: ambulatory Limitations: no limitations History of Present Illness: HPI Narrative: 34-year-old female has a history of type 1 diabetes. Patient was seen at [facility] over here concerned that she is in DKA. She states she has had a headache and some shortness of breath and nausea. She does have a history of migraines and states this feels very similar. She does have photophobia and phonophobia. She denies any fevers. Patient's blood sugar here is reading as high. Associated symptoms: Reports nausea; Deny chest pain, fever(s) or rash Review of Systems Const: Denies: fever(s), chills, body aches or change in appetite Eyes: Denies: blurry vision or eye discomfort ENMT: Denies: throat pain or dental pain Card: Denies: chest pain Resp: Reports: dyspnea GI: Reports: nausea : Denies: dysuria Musc: Denies: neck pain or back pain Skin/Breast: Denies: rash Neuro: Reports: headache(s) Psych: Denies: depression Ramiro/Lymph: Denies: easy bruising All/Imm: Denies: urticaria PFSH ED PFSH: Medical History Anxiety Chronic headache Diabetes DKA (diabetic ketoacidoses) HTN (hypertension) Hyperglycemia Lymphadenitis Migraine headache Pancreatitis PID (pelvic inflammatory disease) Pleural effusion 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 Pyelonephritis Respiratory failure Sepsis Ureterolithiasis Surgical History History of cholecystectomy History of endoscopy History of lung surgery Social History Smoking and tobacco status: current every day smoker Household members: spouse Housing: House Female Reproductive History: Date of last menstrual period: 11/19/19 Physical Exam Const: COMMON NORMALS: no acute distress, patient oriented x3 and healthy appearing HENMT: COMMON NORMALS: normocephalic and atraumatic HEAD & SCALP: normocephalic and atraumatic OTHER: no menisgsmus Eye: COMMON NORMALS: Equal, round and reactive pupils present and EOMs intact bilaterally PUPIL: Yes Equal, round and reactive pupils present Neck/C-Spine: COMMON NORMALS: full ROM and supple Chest: COMMONS NORMALS: normal inspection of the chest and normal palpation of entire chest wall Resp: COMMON NORMALS: normal respiratory effort, No retractions, No use of accessory muscles and clear to auscultation bilaterally AUSCULTATION: clear to auscultation bilaterally Cardio: COMMON NORMALS: regular rate, regular rhythm and No murmurs present (Cardio) RATE: regular rate RHYTHM: regular rhythm GI: COMMON NORMALS: Normal to inspection, nondistended, normoactive bowel sounds present, Soft to palpation, non-tender and no masses PALPATION: Yes Soft to palpation Extremity: COMMON NORMALS: normal to inspection and full ROM Neuro: COMMON NORMALS: patient oriented x3, moves all extremities and no focal motor deficits Psych: COMMON NORMALS: mental status grossly normal, Normal thought process present and cooperative THOUGHT PROCESS: Normal thought process present Skin: COMMON NORMALS: no rashes or lesions noted and no wounds GENERAL SKIN EXAM: no rashes or lesions noted Course Vital Signs: Vital signs: Vital Signs Temperature 98.6 F 01/28/20 14:20 Pulse Rate 84 01/28/20 15:37 Respiratory Rate 18 01/28/20 15:37 Blood Pressure 115/73 01/28/20 15:37 Pulse Oximetry 98 01/28/20 15:37 MDM - Headache MDM Narrative: Medical decision making narrative: Donita presents here with headache that is likely a migraine headache. She has a long history of migraines and this is the same. She has no signs of meningitis or subarachnoid hemorrhage. Patient does have hyperglycemia but is not in DKA. I instructed her it is very important that she gets a better control of her blood sugars. Patient's blood sugar here is improved with 312 and I feel she is stable for discharge. She is to follow-up with primary care doctor in 3 to 5 days return if worsening. Lab Data: Labs: Lab Results 01/28/20 01/28/20 01/28/20 Range/Units 14:26 14:42 14:42 WBC 12.3 H (4.0-10.0) 10^3/ uL RBC 5.79 H (4.1-5.3) 10^6/u L Hgb 15.6 H (11.5-15.3) g/dL Hct 48.2 H (37.0-47.0) % MCV 83.2 (81-99) fL MCH 26.9 L (28.0-34.0) pg MCHC 32.4 (30.0-36.0) g/dL RDW 12.7 (12.1-15.1) % Plt Count 281 (130-400) 10^3/c mm MPV 12.1 H (7.4-10.4) fL Neut % (Auto) 70.4 % Lymph % (Auto) 23.5 % [place] % (Auto) 4.2 % Eos % (Auto) 1.0 % Baso % (Auto) 0.6 % Neut # (Auto) 8.66 H (1.8-7.7) 10^3/u L Lymph # (Auto) 2.9 (0.8-4.8) 10^3/u L [place] # (Auto) 0.5 (0.2-0.9) 10^3/u L Eos # (Auto) 0.1 (0.0-0.8) 10^3/u L Baso # (Auto) 0.1 (0.0-0.1) 10^3/u L Nucleated RBC % (a uto) 0 % Nucleated RBCs # 0.0 /100WBC Specimen Type Arterial Sample Site Brachial, left ABG pH 7.40 (7.35-7.45) ABG pCO2 36.4 (35-45) mmHg ABG pO2 82.2 (80.0-100.0) mmH g ABG HCO3 22.6 (22-26) mmol/L ABG Base Excess -1.7 (-2.0-2.0) mmol/ L Braulio Test N/a Hematocrit 44.6 (37-47) % O2 Delivery Device Room air FiO2 21.0 % Skin Care Consultant ID Amh Sodium (136-145) mmol/L Potassium (3.5-5.1) mmol/L Chloride (98-107) mmol/L Carbon Dioxide (22-29) mmol/L Anion Gap (5-19) BUN (6-20) mg/dL Creatinine (0.5-0.9) mg/dL GFR Calculation (90-130) mL/min Glucose (65-115) mg/dL POC Glucose > 600 (70-110) mg/dL Calculated Osmolal ity (285-295) mOsm/k g Calcium (8.5-10.5) mg/dL Phosphorus (2.5-4.5) mg/dL Magnesium (1.7-2.3) mg/dL Total Bilirubin (0.15-1.2) mg/dL AST (0-32) U/L ALT (0-33) U/L Alkaline Phosphata se (35-105) IU/L Total Protein (6.6-8.7) g/dL Albumin (3.5-5.2) g/dL Globulin (1.3-4.6) g/dL Serum Ketones (Negative) 01/28/20 01/28/20 01/28/20 Range/Units 14:42 14:42 15:34 WBC (4.0-10.0) 10^3/ uL RBC (4.1-5.3) 10^6/u L Hgb (11.5-15.3) g/dL Hct (37.0-47.0) % MCV (81-99) fL MCH (28.0-34.0) pg MCHC (30.0-36.0) g/dL RDW (12.1-15.1) % Plt Count (130-400) 10^3/c mm MPV (7.4-10.4) fL Neut % (Auto) % Lymph % (Auto) % [place] % (Auto) % Eos % (Auto) % Baso % (Auto) % Neut # (Auto) (1.8-7.7) 10^3/u L Lymph # (Auto) (0.8-4.8) 10^3/u L [place] # (Auto) (0.2-0.9) 10^3/u L Eos # (Auto) (0.0-0.8) 10^3/u L Baso # (Auto) (0.0-0.1) 10^3/u L Nucleated RBC % (a uto) % Nucleated RBCs # /100WBC Specimen Type Sample Site ABG pH (7.35-7.45) ABG pCO2 (35-45) mmHg ABG pO2 (80.0-100.0) mmH g ABG HCO3 (22-26) mmol/L ABG Base Excess (-2.0-2.0) mmol/ L Braulio Test Hematocrit (37-47) % O2 Delivery Device FiO2 % Skin Care Consultant ID Sodium 123 L (136-145) mmol/L Potassium 4.3 (3.5-5.1) mmol/L Chloride 86 L (98-107) mmol/L Carbon Dioxide 23 (22-29) mmol/L Anion Gap 18.3 (5-19) BUN 17 (6-20) mg/dL Creatinine 0.9 (0.5-0.9) mg/dL GFR Calculation 72.1 L (90-130) mL/min Glucose 713 H* (65-115) mg/dL POC Glucose 523 (70-110) mg/dL Calculated Osmolal ity 287 (285-295) mOsm/k g Calcium 9.5 (8.5-10.5) mg/dL Phosphorus 3.1 (2.5-4.5) mg/dL Magnesium 1.8 (1.7-2.3) mg/dL Total Bilirubin 0.3 (0.15-1.2) mg/dL AST 16 (0-32) U/L ALT 18 (0-33) U/L Alkaline Phosphata se 154 H (35-105) IU/L Total Protein 8.7 (6.6-8.7) g/dL Albumin 4.0 (3.5-5.2) g/dL Globulin 4.7 H (1.3-4.6) g/dL Serum Ketones Negative (Negative) 01/28/20 01/28/20 Range/Units 16:19 17:01 WBC (4.0-10.0) 10^3/ uL RBC (4.1-5.3) 10^6/u L Hgb (11.5-15.3) g/dL Hct (37.0-47.0) % MCV (81-99) fL MCH (28.0-34.0) pg MCHC (30.0-36.0) g/dL RDW (12.1-15.1) % Plt Count (130-400) 10^3/c mm MPV (7.4-10.4) fL Neut % (Auto) % Lymph % (Auto) % [place] % (Auto) % Eos % (Auto) % Baso % (Auto) % Neut # (Auto) (1.8-7.7) 10^3/u L Lymph # (Auto) (0.8-4.8) 10^3/u L [place] # (Auto) (0.2-0.9) 10^3/u L Eos # (Auto) (0.0-0.8) 10^3/u L Baso # (Auto) (0.0-0.1) 10^3/u L Nucleated RBC % (a uto) % Nucleated RBCs # /100WBC Specimen Type Sample Site ABG pH (7.35-7.45) ABG pCO2 (35-45) mmHg ABG pO2 (80.0-100.0) mmH g ABG HCO3 (22-26) mmol/L ABG Base Excess (-2.0-2.0) mmol/ L Braulio Test Hematocrit (37-47) % O2 Delivery Device FiO2 % Skin Care Consultant ID Sodium (136-145) mmol/L Potassium (3.5-5.1) mmol/L Chloride (98-107) mmol/L Carbon Dioxide (22-29) mmol/L Anion Gap (5-19) BUN (6-20) mg/dL Creatinine (0.5-0.9) mg/dL GFR Calculation (90-130) mL/min Glucose (65-115) mg/dL POC Glucose 401 312 (70-110) mg/dL Calculated Osmolal ity (285-295) mOsm/k g Calcium (8.5-10.5) mg/dL Phosphorus (2.5-4.5) mg/dL Magnesium (1.7-2.3) mg/dL Total Bilirubin (0.15-1.2) mg/dL AST (0-32) U/L ALT (0-33) U/L Alkaline Phosphata se (35-105) IU/L Total Protein (6.6-8.7) g/dL Albumin (3.5-5.2) g/dL Globulin (1.3-4.6) g/dL Serum Ketones (Negative) Imaging Data^: CXR: Attestation: I personally reviewed and interpreted this imaging study as follows: Radiologist's impression: [address] [address] XRay Report Signed Patient: Donita Aguilar Unit #: [id number] : 1985 Age/Sex: 34 / F ADM Date: 01/28/20 Loc: ER Room/Bed: Attending Dr: Ordering Provider/Ordering MD: Ronny Ayala MD Date of Service: 01/28/20 Procedure(s): XR chest 1V portable [id number] Accession Number(s): [id number] Report Number: [id number] WS: [id number] PORTABLE CHEST HISTORY: sob COMPARISON: 12/17/2019 Mild obscuration of the LEFT hemidiaphragm. There is a small LEFT pleural effusion which is similar to 12/17/2019 without progression. RIGHT lung is clear. Cardiac size: Normal. Mediastinum/Aorta: Normal mediastinum. No osseous abnormality seen. XR/XR chest 1V portable [id number] IMPRESSION: Very small LEFT pleural effusion. Otherwise no change in appearance the lungs at 12/17/2019. CT Head: Radiologist's impression: [id number] Order #: [id number] Report Status: Finalized Reason: [place] [address] CT Scan Report Signed Patient: Donita Aguilar Unit #: [id number] : 1985 Age/Sex: 34 / F ADM Date: 01/28/20 Loc: ER Room/Bed: Attending Dr: Ordering Provider/Ordering MD: Ronny Ayala MD Date of Service: 01/28/20 Procedure(s): CT head wo con* [id number] Accession Number(s): [id number] Report Number: [id number] PROCEDURE INFORMATION: Exam: CT Head Without Contrast Exam date and time: 01/28/2020 3:44 PM Age: 34 years old Clinical indication: Pain; Headache; Additional info: TECHNIQUE: Imaging protocol: Computed tomography of the head without contrast. Axial, coronal and sagittal reformatted images were created and reviewed. Radiation optimization: All CT scans at this facility use at least one of these dose optimization techniques: automated exposure control; mA and/or kV adjustment per patient size (includes targeted exams where dose is matched to clinical indication); or iterative reconstruction. COMPARISON: CT head wo con* [id number] 12/30/2018 5:25 PM RADIATION DOSE METRICS: Total DLP (mGy-cm): 731.57 FINDINGS: Brain: No CT evidence of acute intracranial hemorrhage or acute territorial infarction. No significant mass effect or midline shift. Basal cisterns patent. Ventricles: Normal in size and configuration. Bones/joints: No acute osseous abnormality. Sinuses: Grossly unremarkable. Mastoid air cells: Grossly unremarkable. Soft tissues: Grossly unremarkable. CT/CT head wo con* [id number] IMPRESSION: No CT evidence of acute intracranial pathology. Discharge Plan Discharge Patient Disposition: Home Clinical Impression: Hyperglycemia Migraine Qualifiers: Migraine type: unspecified Status migrainosus presence: without status migrainosus Intractability: not intractable Qualified Code(s): G43.909 - Migraine, unspecified, not intractable, without status migrainosus Condition: Stable Prescriptions: No Action gabapentin 300 mg Capsule 300 mg PO Q6H PRN (Reason: unknown) RF: 0 insulin lispro [Humalog KwikPen Insulin] 100 unit/mL Insulin Pen See Rx Instructions .ROUTE .COMPLEX RF: 0 Lantus Solostar U-100 Insulin 100 unit/mL (3 mL) Insulin Pen 50 unit SUBCUT BID RF: 0 tamsulosin [Flomax] 0.4 mg capsule 0.4 mg PO DAILY Qty: 30 RF: 0 Discharge Orders: Discharge Order (Routine); Ordered 01/28/20 Ordered By: Ronny Ayala Referrals: Elizabeth Dougherty FNP [Primary Care Provider] - 1-3 days Discharge Diet: Advance as tolerated Discharge Activity: Resume usual activity Patient Instructions: Migraine Headache (ED), Diabetic Hyperglycemia (ED) Coding Level of Care Code ED Research And Development Manager for Chg Fwd Exam Comprehensive
[2020-01-28 14:46] VITALS: BP 110/76; PULSE 84; RESP 18; O2SAT 100
[2020-01-28 14:50] LABS: Basophils # 0.1 10^3/uL (0.0-0.1); Basophils % 0.6 %; Eosinophils # 0.1 10^3/uL (0.0-0.8); Hematocrit 48.2 % (37.0-47.0); Hemoglobin 15.6 g/dL (11.5-15.3); Lymphocytes # 2.9 10^3/uL (0.8-4.8); Lymphocytes % 23.5 %; Mean Corpuscular HGB Conc 32.4 g/dL (30.0-36.0); Mean Corpuscular Hemoglobin 26.9 pg (28.0-34.0); Mean Corpuscular Volume 83.2 fL (81-99); Mean Platelet Volume 12.1 fL (7.4-10.4); Monocytes # 0.5 10^3/uL (0.2-0.9); Monocytes % 4.2 %; Neutrophils # 8.66 10^3/uL (1.8-7.7); Neutrophils % 70.4 %; Nucleated Red Blood Cells % 0 %; Platelet Count 281 10^3/cmm (130-400); Red Blood Count 5.79 10^6/uL (4.1-5.3); Red Cell Distribution Width 12.7 % (12.1-15.1); White Blood Count 12.3 10^3/uL (4.0-10.0)
[2020-01-28 14:51] VITALS: BP 110/76; PULSE 96; RESP 18; O2SAT 100
[2020-01-28 14:54] LABS: ABG PCO2 36.4 mmHg (35-45); Arterial Blood Gas Hematocrit 44.6 % (37-47); Base Excess ABG -1.7 mmol/L (-2.0-2.0); Blood Gas Operator Identificat AMH; Blood Gas Sample Site Brachial, left; Blood Gas Sample Type Arterial; HCO3 ABG 22.6 mmol/L (22-26); Oxygen Device ROOM AIR; PO2 ABG 82.2 mmHg (80.0-100.0)
[2020-01-28] MEDS: metoclopramide 5 mg/mL SDV 2 mL 10 MG IVP (14:55)
[2020-01-28] MEDS: diphenhydrAMINE 50 mg/mL SDV 1mL IVP (14:55)
[2020-01-28] MEDS: sodium chloride 0.9% 1,000 ML 999 ML IV ×2 (14:55→14:56)
[2020-01-28 14:59] LABS: Ketone (Acetest) Serum Negative (Negative)
[2020-01-28 15:07] LABS: Alanine Aminotransferase 18 U/L (0-33); Alkaline Phosphatase 154 IU/L (35-105); Blood Urea Nitrogen 17 mg/dL (6-20); Calcium 9.5 mg/dL (8.5-10.5); Carbon Dioxide 23 mmol/L (22-29); Chloride 86 mmol/L (98-107); Globulin 4.7 g/dL (1.3-4.6); Glomerular Filtration Rate 72.1 mL/min (90-130); Magnesium 1.8 mg/dL (1.7-2.3); Osmolality Calculated 287 mOsm/kg (285-295); Phosphorus 3.1 mg/dL (2.5-4.5); Sodium 123 mmol/L (136-145); Total Bilirubin 0.3 mg/dL (0.15-1.2); Total Protein 8.7 g/dL (6.6-8.7)
[2020-01-28 15:09] LABS: Anion Gap 18.3 (5-19); Potassium 4.3 mmol/L (3.5-5.1)
[2020-01-28 15:10] LABS: Aspartate Amino Transferase 16 U/L (0-32); Glucose 713 mg/dL (65-115)
--- NOTE | 2020-01-28 15:12 | CTR_ITS ---
PROCEDURE INFORMATION: Exam: CT Head Without Contrast Exam date and time: 01/28/2020 3:44 PM Age: 34 years old Clinical indication: Pain; Headache; Additional info: MUJICA TECHNIQUE: Imaging protocol: Computed tomography of the head without contrast. Axial, coronal and sagittal reformatted images were created and reviewed. Radiation optimization: All CT scans at this facility use at least one of these dose optimization techniques: automated exposure control; mA and/or kV adjustment per patient size (includes targeted exams where dose is matched to clinical indication); or iterative reconstruction. COMPARISON: CT head wo con* [id number] 12/30/2018 5:25 PM RADIATION DOSE METRICS: Total DLP (mGy-cm): 731.57 FINDINGS: Brain: No CT evidence of acute intracranial hemorrhage or acute territorial infarction. No significant mass effect or midline shift. Basal cisterns patent. Ventricles: Normal in size and configuration. Bones/joints: No acute osseous abnormality. Sinuses: Grossly unremarkable. Mastoid air cells: Grossly unremarkable. Soft tissues: Grossly unremarkable. CT/CT head wo con* [id number] IMPRESSION: No CT evidence of acute intracranial pathology. Radiation Dose CTDIVOL = (mGy): DLP = 731.57 (mGy-cm)
[2020-01-28] MEDS: insulin regular-human 100 units/1 mL 10 UNIT IVP (15:36)
[2020-01-28 15:37] VITALS: BP 115/73; PULSE 84; RESP 18; O2SAT 98
[2020-01-28] MEDS: insulin regular-human 100 units/1 mL 5 UNIT IVP (15:37)
[2020-01-28 15:40] LABS: Glucose Point of Care > 600 mg/dL (70-110)
[2020-01-28 15:40] LABS: Glucose Point of Care 523 mg/dL (70-110)
[2020-01-28 16:23] LABS: Glucose Point of Care 401 mg/dL (70-110)
[2020-01-28 17:03] LABS: Glucose Point of Care 312 mg/dL (70-110)
[2020-01-28 17:40] VITALS: BP 86/54; PULSE 77; RESP 16; TEMP 36.4; O2SAT 96
== END 2020-01-28 17:42 | disposition home or self-care (01) ==
PROVIDERS: Emergency Provider Emergency Medicine; PCP Nurse Practitioner Family
DX: G43.909 Migraine, unspecified, not intractable, without status migrainosus (principal); E11.65 Type 2 diabetes mellitus with hyperglycemia; Z79.4 Long term (current) use of insulin; I10 Essential (primary) hypertension; F17.210 Nicotine dependence, cigarettes, uncomplicated
CPT/HCPCS: 12345; 36416; 36600; 70450; 71045; 80053; 82009; 82803; 82962; 83735; 84100; 85025; 96361; 96374; 96375; 99283; 99284; J1200; J1815; J2765; J7030

== ENCOUNTER 2020-01-30 14:08 | Emergency (ER) | payer MEDICAID, SELFPAY ==
[2020-01-30 14:21] VITALS: BP 107/74; PULSE 115; RESP 28; TEMP 36.8; O2SAT 98; BMI 23.4
--- NOTE | 2020-01-30 14:35 | XRR_ITS ---
PROCEDURE INFORMATION: Exam: XR Chest, 1 View Exam date and time: 01/30/2020 2:37 PM Age: 34 years old Clinical indication: Shortness of breath; Additional info: SOB TECHNIQUE: Imaging protocol: XR of the chest Views: 1 view. COMPARISON: CR XR chest 1V portable [id number] 01/28/2020 2:45 PM FINDINGS: Lungs: Unremarkable. No consolidation. Postoperative changes of a partial left pneumonectomy with clips in the left hilum are unchanged. There is unchanged elevation of the left hemidiaphragm and volume loss in the left hemithorax. Pleural space: Unremarkable. No pleural effusion. No pneumothorax. Heart/Mediastinum: Unremarkable. No cardiomegaly. Bones/joints: No acute abnormality. Old left postoperative rib defect is noted. XR/XR chest 1V portable [id number] IMPRESSION: No acute findings. Unchanged postoperative partial left pneumonectomy.
--- NOTE | 2020-01-30 14:36 | ECG_ITS ---
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 Measurements Intervals [place] Rate: 78 P: 20 NV: 139 QRS: 88 QRSD: 87 T: -7 QT: 388 QTc: 442 Interpretive Statements SINUS RHYTHM NONSPECIFIC T-WAVE ABNORMALITY Compared to ECG 12/17/2019 17:59:55 No significant changes Electronically Signed On 01-31-2020 8:37:39 CDT by Maame Montero M.D. [id number]
--- NOTE | 2020-01-30 14:39 | CTR_ITS ---
PROCEDURE INFORMATION: Exam: CT Angiography Chest With Contrast Exam date and time: 01/30/2020 2:47 PM Age: 34 years old Clinical indication: Nausea and vomiting; Shortness of breath; Prior surgery; Surgery date: 6+ months; Surgery type: L lung, gb; Patient HX: C/O SOB cp w n/v/d TECHNIQUE: Imaging protocol: Computed tomographic angiography of the chest with intravenous contrast. 3D rendering: MIP and/or 3D reconstructed images were created by the technologist. Radiation optimization: All CT scans at this facility use at least one of these dose optimization techniques: automated exposure control; mA and/or kV adjustment per patient size (includes targeted exams where dose is matched to clinical indication); or iterative reconstruction. Contrast material: OMNI 350; Contrast volume: 75 ml; Contrast route: INTRAVENOUS (IV); COMPARISON: CT angio chest PE protcl [id number] 12/17/2019 4:38 PM RADIATION DOSE METRICS: Total DLP (mGy-cm): 1128.62 FINDINGS: Pulmonary arteries: There is no pulmonary embolus. Aorta: Unremarkable. No aortic aneurysm. No aortic dissection. Lungs: There is subpleural atelectasis of the dependent portions of the lungs. There is ground-glass pneumonitis with a tree-in-bud appearance in the lungs greatest in the right lower lobe. There is no new or enlarging pulmonary nodule. No dense lobar consolidation. Pleural space: Unremarkable. No pneumothorax. No pleural effusion. Heart: Unremarkable. No cardiomegaly. No pericardial effusion. Mediastinal space: There are postoperative changes of a partial left pneumonectomy with scarring adjacent to the left hilum. Lymph nodes: Partially calcified nodule adjacent to the fissure right lung image 294 is a probable 1 cm partially calcified perifissural lymph node unchanged since the prior exam. Bones/joints: Unremarkable. No acute fracture. Soft tissues: Unremarkable. IMPRESSION: 1. There is no pulmonary embolus. 2. Postoperative partial left pneumonectomy. There is mild pneumonitis with a tree-in-bud appearance in the lungs greatest in the right lower lobe. No dense consolidation. PROCEDURE INFORMATION: Exam: CT Abdomen And Pelvis With Contrast Exam date and time: 01/30/2020 2:47 PM Age: 34 years old Clinical indication: Nausea and vomiting; Shortness of breath; Prior surgery; Surgery date: 6+ months; Surgery type: L lung, gb; Patient HX: C/O SOB cp w n/v/d TECHNIQUE: Imaging protocol: Computed tomography of the abdomen and pelvis with intravenous contrast. Radiation optimization: All CT scans at this facility use at least one of these dose optimization techniques: automated exposure control; mA and/or kV adjustment per patient size (includes targeted exams where dose is matched to clinical indication); or iterative reconstruction. Contrast material: OMNI 350; Contrast volume: 75 ml; Contrast route: INTRAVENOUS (IV); COMPARISON: CT angio chest PE protcl [id number] 12/17/2019 4:38 PM RADIATION DOSE METRICS: Total DLP (mGy-cm): 1128.62 FINDINGS: Mediastinal space: A small hiatal hernia is present. Liver: There is mild fatty infiltration liver. The liver is otherwise unremarkable. Gallbladder and bile ducts: There has been a cholecystectomy. There is no common bile duct dilation. Pancreas: Normal. No ductal dilation. Spleen: Normal. No splenomegaly. Adrenals: Normal. No mass. Kidneys and ureters: The right kidney is normal. There is scarring lower pole left kidney. 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 The wall of the left ureter and left renal pelvis appears thickened concerning for urinary tract infection increased since the prior exam. There is left perinephric fat stranding which is improved compared to the prior exam that may reflect recurrent urinary tract infection. Stomach and bowel: There is no evidence of intestinal perforation or obstruction. There is no evidence of colitis/diverticulitis. Appendix: A normal appendix is identified. Intraperitoneal space: Unremarkable. No free air. No significant fluid collection. Vasculature: Unremarkable.No abdominal aortic aneurysm. Lymph nodes: Unremarkable.No enlarged lymph nodes. Bladder: The bladder wall is very thickened in there is mild haziness of the fat adjacent to the bladder. Reproductive: There is a crenulated/partially collapsing right ovarian cyst that measures 2.8 cm in greatest dimension. There is a small amount of fluid in the right adnexa and pelvis. Uterus and left ovary are unremarkable. Bones/joints: Unremarkable. No acute fracture. Soft tissues: Unremarkable. CT/CT angio chest w abd pel w con IMPRESSION: 1. 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 The wall of the urinary bladder and left ureter are thicker than the prior exam concerning for urinary tract infection and cystitis. 2. There is a crenulated/partially collapsing right ovarian cyst that measures 2.8 cm in greatest dimension. There is a small amount of fluid in the right adnexa and pelvis. Radiation Dose CTDIVOL = (mGy): DLP = 1128.62~1128.62 (mGy-cm)
--- NOTE | 2020-01-30 14:41 | W.ED.SOB ---
HPI - SOB/Dyspnea General: Chief Complaint: Shortness of Breath/Dyspnea Stated Complaint: SOB/BACK PAIN Time Seen by Provider: 01/30/20 14:30 Source: patient Mode of arrival: ambulatory Limitations: no limitations History of Present Illness: HPI Narrative: 34-year-old female who has a history of diabetes states she has been having abdominal back and shortness of breath. Patient states her pain is sharp in nature and rates it a 7 out of 10. She denies any worsening improving factors. She was seen here 2 days ago for a migraine headache since resolved. Patient was quite hyperglycemic through the day as well but that is improved. She denies any vomiting.. MD elicited complaint: shortness of breath Associated symptoms: Reports abdominal pain and chest pain; Deny fever(s) Review of Systems Const: Denies: fever(s), chills, body aches or change in appetite Eyes: Denies: blurry vision or eye discomfort ENMT: Denies: throat pain or dental pain Card: Reports: chest pain Resp: Denies: dyspnea GI: Reports: abdominal pain : Denies: dysuria Musc: Denies: neck pain or back pain Skin/Breast: Denies: rash Neuro: Denies: headache(s) Psych: Denies: depression Ramiro/Lymph: Denies: easy bruising All/Imm: Denies: urticaria PFSH ED PFSH: Medical History (Updated 01/30/20 @ 17:26 by Ronny Ayala MD) Anxiety Chronic headache Diabetes DKA (diabetic ketoacidoses) HTN (hypertension) Hyperglycemia Lymphadenitis Migraine headache Pancreatitis PID (pelvic inflammatory disease) Pleural effusion 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 Pyelonephritis Respiratory failure Sepsis Ureterolithiasis Surgical History History of cholecystectomy History of endoscopy History of lung surgery Social History Smoking and tobacco status: current every day smoker Household members: spouse Housing: House Female Reproductive History: Date of last menstrual period: 01/23/20 Physical Exam Const: COMMON NORMALS: no acute distress, patient oriented x3 and healthy appearing HENMT: COMMON NORMALS: normocephalic and atraumatic HEAD & SCALP: normocephalic and atraumatic Eye: COMMON NORMALS: Equal, round and reactive pupils present and EOMs intact bilaterally PUPIL: Yes Equal, round and reactive pupils present Neck/C-Spine: COMMON NORMALS: full ROM and supple Chest: COMMONS NORMALS: normal inspection of the chest and normal palpation of entire chest wall Resp: COMMON NORMALS: normal respiratory effort, No retractions, No use of accessory muscles and clear to auscultation bilaterally AUSCULTATION: clear to auscultation bilaterally Cardio: COMMON NORMALS: regular rhythm and No murmurs present (Cardio) RATE: tachycardic RHYTHM: regular rhythm GI: COMMON NORMALS: Normal to inspection, nondistended, normoactive bowel sounds present, Soft to palpation and no masses PALPATION: Yes Soft to palpation and Yes Tenderness to palpation present (GI) (diffuse) Extremity: COMMON NORMALS: normal to inspection and full ROM Neuro: COMMON NORMALS: patient oriented x3, moves all extremities and no focal motor deficits Psych: COMMON NORMALS: mental status grossly normal, Normal thought process present and cooperative THOUGHT PROCESS: Normal thought process present Skin: COMMON NORMALS: no rashes or lesions noted and no wounds GENERAL SKIN EXAM: no rashes or lesions noted Course Vital Signs: Vital signs: Vital Signs Temperature 98.2 F 01/30/20 14:21 Pulse Rate 80 01/30/20 17:05 Respiratory Rate 18 01/30/20 17:05 Blood Pressure 128/82 01/30/20 17:05 Pulse Oximetry 96 01/30/20 17:05 MDM - SOB/Dyspnea MDM Narrative: Medical decision making narrative: Patient presents here with hyperglycemia due to noncompliance. She is not in DKA. Patient's blood sugar is improved here. Patient CT showed mild cystitis patient likely has a cystitis and will treat with Keflex. Patient has no signs of pneumonia or pulmonary embolism. She is stable for discharge is to follow-up with primary care doctor in 3 to 5 days and return if worsening. Lab Data: Labs: Lab Results 01/30/20 01/30/20 01/30/20 Range/Units 14:50 14:50 15:39 WBC 9.4 (4.0-10.0) 10^3/ uL RBC 4.93 (4.1-5.3) 10^6/u L Hgb 13.3 (11.5-15.3) g/dL Hct 40.7 (37.0-47.0) % MCV 82.6 (81-99) fL MCH 27.0 L (28.0-34.0) pg MCHC 32.7 (30.0-36.0) g/dL RDW 12.6 (12.1-15.1) % Plt Count 182 (130-400) 10^3/c mm MPV 12.2 H (7.4-10.4) fL Neut % (Auto) 70.8 % Lymph % (Auto) 21.5 % [place] % (Auto) 5.7 % Eos % (Auto) 1.3 % Baso % (Auto) 0.4 % Neut # (Auto) 6.62 (1.8-7.7) 10^3/u L Lymph # (Auto) 2.0 (0.8-4.8) 10^3/u L [place] # (Auto) 0.5 (0.2-0.9) 10^3/u L Eos # (Auto) 0.1 (0.0-0.8) 10^3/u L Baso # (Auto) 0.0 (0.0-0.1) 10^3/u L Nucleated RBC % (a uto) 0 % Nucleated RBCs # 0.0 /100WBC Sodium 129 L (136-145) mmol/L Potassium 4.7 (3.5-5.1) mmol/L Chloride 94 L (98-107) mmol/L Carbon Dioxide 25 (22-29) mmol/L Anion Gap 14.7 (5-19) BUN 14 (6-20) mg/dL Creatinine 0.8 (0.5-0.9) mg/dL GFR Calculation 82.6 L (90-130) mL/min Glucose 540 H* (65-115) mg/dL POC Glucose 419 (70-110) mg/dL Calculated Osmolal ity 289 (285-295) mOsm/k g Calcium 8.8 (8.5-10.5) mg/dL Total Bilirubin 0.3 (0.15-1.2) mg/dL AST 15 (0-32) U/L ALT 15 (0-33) U/L Alkaline Phosphata se 110 H (35-105) IU/L NT-Pro-B Natriuret Pep 251 H (0-125) pg/mL Total Protein 7.1 (6.6-8.7) g/dL Albumin 3.4 L (3.5-5.2) g/dL Globulin 3.7 (1.3-4.6) g/dL Lipase 18 (13-60) U/L HCG, Qual (Negative) Urine Color (Yellow) Urine Appearance (CLEAR) Urine pH (5-7) Ur Specific Gravit y (1.005-1.030) Urine Protein (Negative) Urine Glucose (UA) (Normal) Urine Ketones (Negative) Urine Blood (Negative) Urine Nitrate (Negative) Urine Bilirubin (NEGATIVE) Urine Urobilinogen (Negative) mg/dL Ur Leukocyte Denise ase (Negative) Amorphous Sediment 01/30/20 01/30/20 01/30/20 Range/Units 15:45 15:45 16:44 WBC (4.0-10.0) 10^3/ uL RBC (4.1-5.3) 10^6/u L Hgb (11.5-15.3) g/dL Hct (37.0-47.0) % MCV (81-99) fL MCH (28.0-34.0) pg MCHC (30.0-36.0) g/dL RDW (12.1-15.1) % Plt Count (130-400) 10^3/c mm MPV (7.4-10.4) fL Neut % (Auto) % Lymph % (Auto) % [place] % (Auto) % Eos % (Auto) % Baso % (Auto) % Neut # (Auto) (1.8-7.7) 10^3/u L Lymph # (Auto) (0.8-4.8) 10^3/u L [place] # (Auto) (0.2-0.9) 10^3/u L Eos # (Auto) (0.0-0.8) 10^3/u L Baso # (Auto) (0.0-0.1) 10^3/u L Nucleated RBC % (a uto) % Nucleated RBCs # /100WBC Sodium (136-145) mmol/L Potassium (3.5-5.1) mmol/L Chloride (98-107) mmol/L Carbon Dioxide (22-29) mmol/L Anion Gap (5-19) BUN (6-20) mg/dL Creatinine (0.5-0.9) mg/dL GFR Calculation (90-130) mL/min Glucose (65-115) mg/dL POC Glucose 272 (70-110) mg/dL Calculated Osmolal ity (285-295) mOsm/k g Calcium (8.5-10.5) mg/dL Total Bilirubin (0.15-1.2) mg/dL AST (0-32) U/L ALT (0-33) U/L Alkaline Phosphata se (35-105) IU/L NT-Pro-B Natriuret Pep (0-125) pg/mL Total Protein (6.6-8.7) g/dL Albumin (3.5-5.2) g/dL Globulin (1.3-4.6) g/dL Lipase (13-60) U/L HCG, Qual Negative (Negative) Urine Color Colorless (Yellow) Urine Appearance Sl hazy (CLEAR) Urine pH 5 (5-7) Ur Specific Gravit y 1.010 (1.005-1.030) Urine Protein Neg (Negative) Urine Glucose (UA) 4+ H (Normal) Urine Ketones 1+ H (Negative) Urine Blood Neg (Negative) Urine Nitrate Negative (Negative) Urine Bilirubin Neg (NEGATIVE) Urine Urobilinogen Norm (Negative) mg/dL Ur Leukocyte Denise ase Negative (Negative) Amorphous Sediment Not Reportable Imaging Data^: CT Chest: Radiologist's impression: [address] [address] [address] Scan Report Signed Patient: Donita Aguilar Unit #: [id number] : 1985 Age/Sex: 34 / F ADM Date: 01/30/20 Loc: ER Room/Bed: Attending Dr: Ordering Provider/Ordering MD: Ronny Ayala MD Date of Service: 01/30/20 Procedure(s): CT angio chest w abd pel w con Accession Number(s): [id number] Report Number: [id number] PROCEDURE INFORMATION: Exam: CT Angiography Chest With Contrast Exam date and time: 01/30/2020 2:47 PM Age: 34 years old Clinical indication: Nausea and vomiting; Shortness of breath; Prior surgery; Surgery date: 6+ months; Surgery type: L lung, gb; Patient HX: C/O SOB cp w n/v/d TECHNIQUE: Imaging protocol: Computed tomographic angiography of the chest with intravenous contrast. 3D rendering: MIP and/or 3D reconstructed images were created by the technologist. Radiation optimization: All CT scans at this facility use at least one of these dose optimization techniques: automated exposure control; mA and/or kV adjustment per patient size (includes targeted exams where dose is matched to clinical indication); or iterative reconstruction. Contrast material: OMNI 350; Contrast volume: 75 ml; Contrast route: INTRAVENOUS (IV); COMPARISON: CT angio chest PE protcl [id number] 12/17/2019 4:38 PM RADIATION DOSE METRICS: Total DLP (mGy-cm): 1128.62 FINDINGS: Pulmonary arteries: There is no pulmonary embolus. Aorta: Unremarkable. No aortic aneurysm. No aortic dissection. Lungs: There is subpleural atelectasis of the dependent portions of the lungs. There is ground-glass pneumonitis with a tree-in-bud appearance in the lungs greatest in the right lower lobe. There is no new or enlarging pulmonary nodule. No dense lobar consolidation. Pleural space: Unremarkable. No pneumothorax. No pleural effusion. Heart: Unremarkable. No cardiomegaly. No pericardial effusion. Mediastinal space: There are postoperative changes of a partial left pneumonectomy with scarring adjacent to the left hilum. Lymph nodes: Partially calcified nodule adjacent to the fissure right lung image 294 is a probable 1 cm partially calcified perifissural lymph node unchanged since the prior exam. Bones/joints: Unremarkable. No acute fracture. Soft tissues: Unremarkable. IMPRESSION: 1. There is no pulmonary embolus. 2. Postoperative partial left pneumonectomy. There is mild pneumonitis with a tree-in-bud appearance in the lungs greatest in the right lower lobe. No dense consolidation. PROCEDURE INFORMATION: Exam: CT Abdomen And Pelvis With Contrast Exam date and time: 01/30/2020 2:47 PM Age: 34 years old Clinical indication: Nausea and vomiting; Shortness of breath; Prior surgery; Surgery date: 6+ months; Surgery type: L lung, gb; Patient HX: C/O SOB cp w n/v/d TECHNIQUE: Imaging protocol: Computed tomography of the abdomen and pelvis with intravenous contrast. Radiation optimization: All CT scans at this facility use at least one of these dose optimization techniques: automated exposure control; mA and/or kV adjustment per patient size (includes targeted exams where dose is matched to clinical indication); or iterative reconstruction. Contrast material: OMNI 350; Contrast volume: 75 ml; Contrast route: INTRAVENOUS (IV); COMPARISON: CT angio chest PE protcl [id number] 12/17/2019 4:38 PM RADIATION DOSE METRICS: Total DLP (mGy-cm): 1128.62 FINDINGS: Mediastinal space: A small hiatal hernia is present. Liver: There is mild fatty infiltration liver. The liver is otherwise unremarkable. Gallbladder and bile ducts: There has been a cholecystectomy. There is no common bile duct dilation. Pancreas: Normal. No ductal dilation. Spleen: Normal. No splenomegaly. Adrenals: Normal. No mass. Kidneys and ureters: The right kidney is normal. There is scarring lower pole left kidney. 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 The wall of the left ureter and left renal pelvis appears thickened concerning for urinary tract infection increased since the prior exam. There is left perinephric fat stranding which is improved compared to the prior exam that may reflect recurrent urinary tract infection. Stomach and bowel: There is no evidence of intestinal perforation or obstruction. There is no evidence of colitis/diverticulitis. Appendix: A normal appendix is identified. Intraperitoneal space: Unremarkable. No free air. No significant fluid collection. Vasculature: Unremarkable.No abdominal aortic aneurysm. Lymph nodes: Unremarkable.No enlarged lymph nodes. Bladder: The bladder wall is very thickened in there is mild haziness of the fat adjacent to the bladder. Reproductive: There is a crenulated/partially collapsing right ovarian cyst that measures 2.8 cm in greatest dimension. There is a small amount of fluid in the right adnexa and pelvis. Uterus and left ovary are unremarkable. Bones/joints: Unremarkable. No acute fracture. Soft tissues: Unremarkable. CT/CT angio chest w abd pel w con IMPRESSION: 1. 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 The wall of the urinary bladder and left ureter are thicker than the prior exam concerning for urinary tract infection and cystitis. 2. There is a crenulated/partially collapsing right ovarian cyst that measures 2.8 cm in greatest dimension. There is a small amount of fluid in the right adnexa and pelvis. EKG Data^: EKG 1: Attestation: I personally reviewed and interpreted this EKG as follows: EKG Interpretation Date: 01/30/20 EKG interpretation time: 15:20 Interpretation: nsr hr [address] or t wave abnormalities qrs 87 qtc 421 Discharge Plan Discharge Patient Disposition: Home Clinical Impression: Hyperglycemia, Cystitis Condition: Stable Prescriptions: [place] 5-325 mg tablet 1 tab PO Q6H PRN (Reason: pain) Qty: 8 RF: 0 Keflex 500 mg capsule 500 mg PO Q6H 7 Days Qty: 28 RF: 0 ondansetron 4 mg tablet,disintegrating 4 mg PO Q6H PRN (Reason: nausea and vomiting) Qty: 14 RF: 0 No Action insulin lispro [Humalog KwikPen Insulin] 100 unit/mL Insulin Pen See Rx Instructions .ROUTE .COMPLEX RF: 0 Lantus Solostar U-100 Insulin 100 unit/mL (3 mL) Insulin Pen 50 unit SUBCUT BID RF: 0 Discharge Orders: Discharge Order (Routine); Ordered 01/30/20 Ordered By: Ronny Ayala Referrals: Elizabeth Dougherty FNP [Primary Care Provider] - 1-3 days Discharge Diet: Advance as tolerated Discharge Activity: Resume usual activity Patient Instructions: Diabetic Hyperglycemia (ED) Coding Level of Care Code ED Compound Coating Machine Offbearer for Chg Fwd Exam Comprehensive
[2020-01-30 14:57] VITALS: BP 117/77; PULSE 75; RESP 18; O2SAT 98
[2020-01-30 15:20] LABS: Basophils % 0.4 %; Eosinophils # 0.1 10^3/uL (0.0-0.8); Eosinophils % 1.3 %; Hematocrit 40.7 % (37.0-47.0); Hemoglobin 13.3 g/dL (11.5-15.3); Lymphocytes % 21.5 %; Mean Corpuscular HGB Conc 32.7 g/dL (30.0-36.0); Mean Corpuscular Volume 82.6 fL (81-99); Mean Platelet Volume 12.2 fL (7.4-10.4); Monocytes # 0.5 10^3/uL (0.2-0.9); Monocytes % 5.7 %; Neutrophils # 6.62 10^3/uL (1.8-7.7); Neutrophils % 70.8 %; Nucleated Red Blood Cells % 0 %; Platelet Count 182 10^3/cmm (130-400); Red Blood Count 4.93 10^6/uL (4.1-5.3); Red Cell Distribution Width 12.6 % (12.1-15.1); White Blood Count 9.4 10^3/uL (4.0-10.0)
[2020-01-30] MEDS: sodium chloride 0.9% 1,000 ML 999 ML IV (15:40)
[2020-01-30 15:45] LABS: Glucose Point of Care 419 mg/dL (70-110)
[2020-01-30] MEDS: insulin regular-human 100 units/1 mL 10 UNIT IVP (15:48)
[2020-01-30 15:57] LABS: Alanine Aminotransferase 15 U/L (0-33); Albumin Level 3.4 g/dL (3.5-5.2); Alkaline Phosphatase 110 IU/L (35-105); Blood Urea Nitrogen 14 mg/dL (6-20); Calcium 8.8 mg/dL (8.5-10.5); Carbon Dioxide 25 mmol/L (22-29); Chloride 94 mmol/L (98-107); Globulin 3.7 g/dL (1.3-4.6); Glomerular Filtration Rate 82.6 mL/min (90-130); Lipase 18 U/L (13-60); NT Pro B Type Natriuretic Pept 251 pg/mL (0-125); Osmolality Calculated 289 mOsm/kg (285-295); Sodium 129 mmol/L (136-145); Total Bilirubin 0.3 mg/dL (0.15-1.2); Total Protein 7.1 g/dL (6.6-8.7)
[2020-01-30 15:57] LABS: HCG Qualitative Urine. Negative (Negative)
[2020-01-30 16:09] LABS: Anion Gap 14.7 (5-19); Aspartate Amino Transferase 15 U/L (0-32); Potassium 4.7 mmol/L (3.5-5.1)
[2020-01-30 16:11] LABS: Glucose 540 mg/dL (65-115)
[2020-01-30] MEDS: iohexol 350 mg/mL 100 mL Btl IV (16:11)
[2020-01-30 16:31] VITALS: BP 128/82; PULSE 80; RESP 16; O2SAT 99
[2020-01-30 16:48] LABS: Glucose Point of Care 272 mg/dL (70-110)
[2020-01-30 17:05] VITALS: BP 128/82; PULSE 80; RESP 18; O2SAT 96
[2020-01-30 17:18] LABS: Urine Color Colorless (Yellow)
[2020-01-30 17:19] LABS: Add Urine Microscopic? YES; Bilirubin Urine Neg (NEGATIVE); Blood Urine Neg (Negative); Glucose Urine UA 4+ (Normal); Ketones Urine 1+ (Negative); Leukocyte Esterase Urine Negative (Negative); Nitrate Urine Negative (Negative); Protein Urine Neg (Negative); Urine Appearance SL Hazy (CLEAR); Urobilinogen Urine Norm (Negative); pH Urine 5 (5-7)
[2020-01-30 17:29] LABS: Squamous Epithelial Cell Urine 15-25 (0-5)
[2020-01-30 17:30] LABS: Amorphous Sediment Urine 1+; Bacteria Urine 2+
[2020-01-30 17:31] LABS: Add Urine Culture? No
[2020-01-30 17:36] VITALS: BP 128/80; PULSE 82; RESP 16; TEMP 37; O2SAT 97
== END 2020-01-30 17:38 | disposition home or self-care (01) ==
PROVIDERS: Emergency Provider Emergency Medicine; PCP Nurse Practitioner Family
DX: N30.90 Cystitis, unspecified without hematuria (principal); E11.65 Type 2 diabetes mellitus with hyperglycemia; Z79.4 Long term (current) use of insulin; I10 Essential (primary) hypertension; F17.210 Nicotine dependence, cigarettes, uncomplicated
CPT/HCPCS: 12345; 36416; 71045; 71275; 74177; 80053; 81001; 81025; 82962; 83690; 83880; 85025; 93005; 96361; 96374; 96375; 99283; 99284; J1815; J7030; Q9967

== ENCOUNTER 2020-02-07 12:35 | Emergency (ER) | payer MEDICAID, SELFPAY ==
[2020-02-07 12:41] VITALS: BP 129/79; PULSE 90; RESP 16; TEMP 36.4; O2SAT 97; BMI 23.4
[2020-02-07 12:46] VITALS: BP 128/64; PULSE 78; RESP 17; O2SAT 98
--- NOTE | 2020-02-07 13:01 | CTR_ITS ---
PROCEDURE INFORMATION: Exam: CT Head Without Contrast Exam date and time: 02/07/2020 1:03 PM Age: 34 years old Clinical indication: Pain; Headache; Aura effect not specified; Does not respond to medication; Severity not specified; Patient HX: C/O worsening migraine x 4 days - HX of migraines TECHNIQUE: Imaging protocol: Computed tomography of the head without contrast. Radiation optimization: All CT scans at this facility use at least one of these dose optimization techniques: automated exposure control; mA and/or kV adjustment per patient size (includes targeted exams where dose is matched to clinical indication); or iterative reconstruction. COMPARISON: CT head wo con* [id number] 01/28/2020 3:47 PM RADIATION DOSE METRICS: Total DLP (mGy-cm): 750.79 FINDINGS: Brain: Normal. No hemorrhage. Unremarkable white matter. No mass effect. Ventricles: Normal. No ventriculomegaly. Bones/joints: Unremarkable. No acute fracture. Sinuses: Visualized sinuses are unremarkable. No fluid levels. Mastoid air cells: Visualized mastoid air cells are well aerated. Soft tissues: Unremarkable. CT/CT head wo con* [id number] IMPRESSION: No acute intracranial abnormality. Radiation Dose CTDIVOL = (mGy): DLP = 750.79 (mGy-cm)
[2020-02-07] MEDS: ketorolac 30 mg/mL INJ IVP (13:12)
[2020-02-07] MEDS: metoclopramide 5 mg/mL SDV 2 mL 10 MG IVP (13:12)
[2020-02-07] MEDS: diphenhydrAMINE 50 mg/mL SDV 1mL IVP (13:13)
[2020-02-07] MEDS: sodium chloride 0.9% 1,000 ML 999 ML IV ×2 (13:17→14:52)
[2020-02-07 13:24] LABS: Basophils # 0.1 10^3/uL (0.0-0.1); Basophils % 0.6 %; Eosinophils # 0.1 10^3/uL (0.0-0.8); Eosinophils % 0.8 %; Hematocrit 44.4 % (37.0-47.0); Hemoglobin 14.2 g/dL (11.5-15.3); Lymphocytes # 1.9 10^3/uL (0.8-4.8); Lymphocytes % 21.2 %; Mean Corpuscular Hemoglobin 26.8 pg (28.0-34.0); Mean Corpuscular Volume 83.9 fL (81-99); Mean Platelet Volume 11.2 fL (7.4-10.4); Monocytes # 0.5 10^3/uL (0.2-0.9); Monocytes % 5.8 %; Neutrophils # 6.32 10^3/uL (1.8-7.7); Neutrophils % 71.4 %; Nucleated Red Blood Cells % 0 %; Platelet Count 260 10^3/cmm (130-400); Red Blood Count 5.29 10^6/uL (4.1-5.3); Red Cell Distribution Width 12.8 % (12.1-15.1); White Blood Count 8.8 10^3/uL (4.0-10.0)
[2020-02-07 13:41] LABS: Alanine Aminotransferase 18 U/L (0-33); Albumin Level 3.5 g/dL (3.5-5.2); Alkaline Phosphatase 107 IU/L (35-105); Aspartate Amino Transferase 16 U/L (0-32); Blood Urea Nitrogen 29 mg/dL (6-20); Carbon Dioxide 23 mmol/L (22-29); Chloride 90 mmol/L (98-107); Creatine Phosphokinase 22 U/L (26-192); Globulin 3.6 g/dL (1.3-4.6); Glomerular Filtration Rate 51.7 mL/min (90-130); Lipase 31 U/L (13-60); Osmolality Calculated 288 mOsm/kg (285-295); Sodium 123 mmol/L (136-145); Total Bilirubin 0.2 mg/dL (0.15-1.2); Total Protein 7.1 g/dL (6.6-8.7)
[2020-02-07 13:42] LABS: Lactate (Lactic Acid level) 1.5 mmol/L (0.5-2.2)
[2020-02-07 13:46] VITALS: BP 128/86; PULSE 83; RESP 18; O2SAT 98
[2020-02-07 13:47] LABS: Glucose 719 mg/dL (65-115)
--- NOTE | 2020-02-07 13:53 | PC.NURSE ---
URINE TO LAB.
[2020-02-07 14:00] VITALS: BP 135/84; PULSE 61; RESP 18; O2SAT 94
[2020-02-07 14:04] LABS: C Reactive Protein 0.9 mg/L (0.0-4.9)
[2020-02-07 14:09] LABS: HCG Qualitative Urine. Negative (Negative)
--- NOTE | 2020-02-07 14:13 | PC.NURSE ---
PT STATES PAIN IS BETTER.
--- NOTE | 2020-02-07 14:15 | ED_ITS ---
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 Headache starts from her posterior neck and radiates all through to the frontal region.. She states that the headache feels typical for her headaches. She has associated light sensitivity or sound sensitivity, nausea but no vomiting. Headache has been going on for couple of days but is getting worse and she is unable to take it anymore. She has been here a few times for the similar headache and she usually receives intravenous medications at work. He has a history of type 1 diabetes that is poorly controlled. MD elicited complaint: headache and migraine Associated symptoms: Reports nausea; Deny fever(s), rash or vomiting Review of Systems General: Reports: 10 or more systems reviewed and unremarkable except in HPI and below Const: Denies: fever(s), chills or body aches Eyes: Denies: change in vision or blurry vision ENMT: Denies: throat pain, enlarged tonsils, odynophagia, hoarseness, mouth pain or swelling of lips/tongue Card: Denies: palpitations, irregular heart rhythm, edema or swelling of feet/ankles Resp: Denies: dyspnea, productive cough or non-productive cough GI: Reports: nausea; Denies: abdominal pain or vomiting : Denies: flank pain, difficulty voiding, dysuria, urinary frequency, urinary urgency or urinary hesitancy Musc: Denies: neck pain, back pain or extremity swelling Skin/Breast: Denies: rash, pruritus or erythema Neuro: Reports: headache(s); Denies: numbness in extremities or weakness in extremities Endo: Denies: polyuria, polydipsia or tired all the time PFSH ED PFSH: Medical History (Reviewed 02/07/20 @ 16:18 by Michael Lawson MD, [facility] – [place]) Anxiety Chronic headache Diabetes DKA (diabetic ketoacidoses) HTN (hypertension) Hyperglycemia Lymphadenitis Migraine headache Pancreatitis PID (pelvic inflammatory disease) Pleural effusion 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 Pyelonephritis Respiratory failure Sepsis Ureterolithiasis Surgical History (Reviewed 02/07/20 @ 16:18 by Michael Lawson MD, [facility] – [place]) History of cholecystectomy History of endoscopy History of lung surgery Social History (Reviewed 02/07/20 @ 16:18 by Michael Lawson MD, [facility] – [place]) Smoking and tobacco status: current every day smoker Household members: spouse Housing: House Female Reproductive History: Date of last menstrual period: 01/23/20 Physical Exam Const: COMMON NORMALS: no acute distress, average body habitus, patient oriented x3, no limitations, healthy appearing, alert and well nourished HENMT: COMMON NORMALS: normocephalic, atraumatic and moist oral mucous membranes HEAD & SCALP: normocephalic and atraumatic Eye: COMMON NORMALS: Equal, round and reactive pupils present, EOMs intact bilaterally, conjunctivae normal and no scleral icterus CONJUNCTIVA: Yes conjunctivae normal PUPIL: Yes Equal, round and reactive pupils present Neck/C-Spine: COMMON NORMALS: full ROM, supple, no meningeal signs, no JVD and No carotid bruits CERVICAL SPINE: No Cervical spine tenderness and Yes Paracervical muscle tenderness Chest: COMMONS NORMALS: normal inspection of the chest and normal palpation of entire chest wall Resp: COMMON NORMALS: normal respiratory effort, No retractions, No use of accessory muscles, clear to auscultation bilaterally and percussion normal AUSCULTATION: clear to auscultation bilaterally PERCUSSION: percussion normal Cardio: COMMON NORMALS: no JVD, regular rate, regular rhythm, S1 normal heart sound present, S2 normal heart sound present, No gallops present (Cardio), No clicks present (Cardio), No murmurs present (Cardio), No rub (Cardio) and Peripheral pulses 2+ throughout RATE: regular rate RHYTHM: regular rhythm HEART SOUNDS: S1 normal heart sound present and S2 normal heart sound present PERIPHERAL PULSES: Peripheral pulses 2+ throughout GI: COMMON NORMALS: Normal to inspection, nondistended, normoactive bowel sounds present, Soft to palpation, non-tender, No hepatosplenomegaly present, no masses and no bruits PALPATION: Yes Soft to palpation and Yes No hepatosplenomegaly present Neuro: COMMON NORMALS: patient oriented x3 SENSORIUM/ORIENTATION: Yes alert MENINGEAL SIGNS: Yes no meningeal signs Skin: COMMON NORMALS: no rashes or lesions noted, no wounds, turgor normal, no jaundice, no petechiae and no mottling GENERAL SKIN EXAM: no rashes or lesions noted and turgor normal Course Reevaluation(s): Reevaluation #1: Patient feels much better. Headache has resolved. Explained her lab findings with her including severe hyperglycemia and acute kidney injury. We will give a second bag of normal saline and some insulin and recheck her glucose. if it improves she will be discharged home after that. She voiced understanding and is in agreement with the plan Time: 14:15 Reevaluation #2: Continues to feel better. Repeat blood glucose is down to about 421. Discussed this with her and she feels comfortable going home she says this is not an unusual number for her. We will therefore discharge her home and she will follow-up with her primary care provider. Time: 15:42 Vital Signs: Vital signs: Vital Signs Temperature 97.6 F 02/07/20 12:41 Pulse Rate 72 02/07/20 15:56 Respiratory Rate 18 02/07/20 15:56 Blood Pressure 125/86 02/07/20 15:56 Pulse Oximetry 96 02/07/20 15:56 MDM - Headache MDM Narrative: Medical decision making narrative: 34-year-old female with a history of migraine headaches who presents to the emergency department with a typical migraine headache for her. She also has a history of type 1 diabetes that is poorly controlled. She received intravenous diphenhydramine, ketorolac and metoclopramide which resolved her headache. She was also given 2 L of normal saline for severe hyperglycemia. She was not in diabetic ketoacidosis or hyperosmolar nonketotic state. She was also given a dose of intravenous short-acting insulin. Her blood glucose dropped from the 700s to the 400s and the patient said this is not unusual for her to live in the 400s so she wanted to be discharged. She is to follow-up with her primary care provider. Head CT was negative for acute findings Medical Records: Attestation: I reviewed the patient's medical records. Lab Data: Attestation: I reviewed the patient's lab results. Labs: Lab Results 02/07/20 02/07/20 02/07/20 Range/Units 13:18 13:18 13:18 WBC 8.8 (4.0-10.0) 10^3/ uL RBC 5.29 (4.1-5.3) 10^6/u L Hgb 14.2 (11.5-15.3) g/dL Hct 44.4 (37.0-47.0) % MCV 83.9 (81-99) fL MCH 26.8 L (28.0-34.0) pg MCHC 32.0 (30.0-36.0) g/dL RDW 12.8 (12.1-15.1) % Plt Count 260 (130-400) 10^3/c mm MPV 11.2 H (7.4-10.4) fL Neut % (Auto) 71.4 % Lymph % (Auto) 21.2 % Barbour % (Auto) 5.8 % Eos % (Auto) 0.8 % Baso % (Auto) 0.6 % Neut # (Auto) 6.32 (1.8-7.7) 10^3/u L Lymph # (Auto) 1.9 (0.8-4.8) 10^3/u L Barbour # (Auto) 0.5 (0.2-0.9) 10^3/u L Eos # (Auto) 0.1 (0.0-0.8) 10^3/u L Baso # (Auto) 0.1 (0.0-0.1) 10^3/u L Nucleated RBC % (a uto) 0 % Nucleated RBCs # 0.0 /100WBC Sodium 123 L (136-145) mmol/L Potassium 5.0 (3.5-5.1) mmol/L Chloride 90 L (98-107) mmol/L Carbon Dioxide 23 (22-29) mmol/L Anion Gap 15.0 (5-19) BUN 29 H (6-20) mg/dL Creatinine 1.2 H (0.5-0.9) mg/dL GFR Calculation 51.7 L (90-130) mL/min Glucose 719 H* (65-115) mg/dL POC Glucose (70-110) mg/dL Calculated Osmolal ity 288 (285-295) mOsm/k g Lactate 1.5 (0.5-2.2) mmol/L Calcium 9.0 (8.5-10.5) mg/dL Total Bilirubin 0.2 (0.15-1.2) mg/dL AST 16 (0-32) U/L ALT 18 (0-33) U/L Alkaline Phosphata se 107 H (35-105) IU/L Creatine Kinase 22 L (26-192) U/L C-Reactive Protein 0.9 (0.0-4.9) mg/L Total Protein 7.1 (6.6-8.7) g/dL Albumin 3.5 (3.5-5.2) g/dL Globulin 3.6 (1.3-4.6) g/dL Lipase 31 (13-60) U/L HCG, Qual (Negative) Urine Color (Yellow) Urine Appearance (CLEAR) Urine pH (5-7) Ur Specific Gravit y (1.005-1.030) Urine Protein (Negative) Urine Glucose (UA) (Normal) Urine Ketones (Negative) Urine Blood (Negative) Urine Nitrate (Negative) Urine Bilirubin (NEGATIVE) Urine Urobilinogen (Negative) mg/dL Ur Leukocyte Denise ase (Negative) Urine RBC (0-2) /hpf Urine WBC (0-5) /hpf Ur Squamous Epith Cells (0-5) Amorphous Sediment Urine Bacteria (NONE) Urine Mucus Urine Opiates Scre en (Negative) ng/mL Ur Barbiturates Sc reen (Negative) ng/mL Ur Phencyclidine S crn (Negative) ng/mL Ur Amphetamines Sc reen (Negative) ng/mL U Benzodiazepines Scrn (Negative) ng/mL Urine Cocaine Scre en (Negative) ng/mL U Marijuana (THC) Screen (Negative) ng/mL 02/07/20 02/07/20 02/07/20 Range/Units 13:52 13:52 13:52 WBC (4.0-10.0) 10^3/ uL RBC (4.1-5.3) 10^6/u L Hgb (11.5-15.3) g/dL Hct (37.0-47.0) % MCV (81-99) fL MCH (28.0-34.0) pg MCHC (30.0-36.0) g/dL RDW (12.1-15.1) % Plt Count (130-400) 10^3/c mm MPV (7.4-10.4) fL Neut % (Auto) % Lymph % (Auto) % Barbour % (Auto) % Eos % (Auto) % Baso % (Auto) % Neut # (Auto) (1.8-7.7) 10^3/u L Lymph # (Auto) (0.8-4.8) 10^3/u L Barbour # (Auto) (0.2-0.9) 10^3/u L Eos # (Auto) (0.0-0.8) 10^3/u L Baso # (Auto) (0.0-0.1) 10^3/u L Nucleated RBC % (a uto) % Nucleated RBCs # /100WBC Sodium (136-145) mmol/L Potassium (3.5-5.1) mmol/L Chloride (98-107) mmol/L Carbon Dioxide (22-29) mmol/L Anion Gap (5-19) BUN (6-20) mg/dL Creatinine (0.5-0.9) mg/dL GFR Calculation (90-130) mL/min Glucose (65-115) mg/dL POC Glucose (70-110) mg/dL Calculated Osmolal ity (285-295) mOsm/k g Lactate (0.5-2.2) mmol/L Calcium (8.5-10.5) mg/dL Total Bilirubin (0.15-1.2) mg/dL AST (0-32) U/L ALT (0-33) U/L Alkaline Phosphata se (35-105) IU/L Creatine Kinase (26-192) U/L C-Reactive Protein (0.0-4.9) mg/L Total Protein (6.6-8.7) g/dL Albumin (3.5-5.2) g/dL Globulin (1.3-4.6) g/dL Lipase (13-60) U/L HCG, Qual Negative (Negative) Urine Color Yellow (Yellow) Urine Appearance Sl hazy (CLEAR) Urine pH 5 (5-7) Ur Specific Gravit y 1.010 (1.005-1.030) Urine Protein Neg (Negative) Urine Glucose (UA) 4+ H (Normal) Urine Ketones 1+ H (Negative) Urine Blood 2+ H (Negative) Urine Nitrate Negative (Negative) Urine Bilirubin Neg (NEGATIVE) Urine Urobilinogen Norm (Negative) mg/dL Ur Leukocyte Denise ase Negative (Negative) Urine RBC None (0-2) /hpf Urine WBC None (0-5) /hpf Ur Squamous Epith Cells 5-10 H (0-5) Amorphous Sediment Trace Urine Bacteria 1+ H (NONE) Urine Mucus Trace Urine Opiates Scre en Negative (Negative) ng/mL Ur Barbiturates Sc reen Negative (Negative) ng/mL Ur Phencyclidine S crn Negative (Negative) ng/mL Ur Amphetamines Sc reen Negative (Negative) ng/mL U Benzodiazepines Scrn Negative (Negative) ng/mL Urine Cocaine Scre en Negative (Negative) ng/mL U Marijuana (THC) Screen Negative (Negative) ng/mL 02/07/20 Range/Units 15:26 WBC (4.0-10.0) 10^3/ uL RBC (4.1-5.3) 10^6/u L Hgb (11.5-15.3) g/dL Hct (37.0-47.0) % MCV (81-99) fL MCH (28.0-34.0) pg MCHC (30.0-36.0) g/dL RDW (12.1-15.1) % Plt Count (130-400) 10^3/c mm MPV (7.4-10.4) fL Neut % (Auto) % Lymph % (Auto) % Barbour % (Auto) % Eos % (Auto) % Baso % (Auto) % Neut # (Auto) (1.8-7.7) 10^3/u L Lymph # (Auto) (0.8-4.8) 10^3/u L Barbour # (Auto) (0.2-0.9) 10^3/u L Eos # (Auto) (0.0-0.8) 10^3/u L Baso # (Auto) (0.0-0.1) 10^3/u L Nucleated RBC % (a uto) % Nucleated RBCs # /100WBC Sodium (136-145) mmol/L Potassium (3.5-5.1) mmol/L Chloride (98-107) mmol/L Carbon Dioxide (22-29) mmol/L Anion Gap (5-19) BUN (6-20) mg/dL Creatinine (0.5-0.9) mg/dL GFR Calculation (90-130) mL/min Glucose (65-115) mg/dL POC Glucose 421 (70-110) mg/dL Calculated Osmolal ity (285-295) mOsm/k g Lactate (0.5-2.2) mmol/L Calcium (8.5-10.5) mg/dL Total Bilirubin (0.15-1.2) mg/dL AST (0-32) U/L ALT (0-33) U/L Alkaline Phosphata se (35-105) IU/L Creatine Kinase (26-192) U/L C-Reactive Protein (0.0-4.9) mg/L Total Protein (6.6-8.7) g/dL Albumin (3.5-5.2) g/dL Globulin (1.3-4.6) g/dL Lipase (13-60) U/L HCG, Qual (Negative) Urine Color (Yellow) Urine Appearance (CLEAR) Urine pH (5-7) Ur Specific Gravit y (1.005-1.030) Urine Protein (Negative) Urine Glucose (UA) (Normal) Urine Ketones (Negative) Urine Blood (Negative) Urine Nitrate (Negative) Urine Bilirubin (NEGATIVE) Urine Urobilinogen (Negative) mg/dL Ur Leukocyte Denise ase (Negative) Urine RBC (0-2) /hpf Urine WBC (0-5) /hpf Ur Squamous Epith Cells (0-5) Amorphous Sediment Urine Bacteria (NONE) Urine Mucus Urine Opiates Scre en (Negative) ng/mL Ur Barbiturates Sc reen (Negative) ng/mL Ur Phencyclidine S crn (Negative) ng/mL Ur Amphetamines Sc reen (Negative) ng/mL U Benzodiazepines Scrn (Negative) ng/mL Urine Cocaine Scre en (Negative) ng/mL U Marijuana (THC) Screen (Negative) ng/mL Imaging Data^: CT Head: Radiologist's impression: [address] [address] [address] Scan Report Signed Patient: Donita Aguilar #: [id number] : 1985Acct#:[id number] Age/Sex: 34 / FADM Date: 02/07/20 Loc: ERRoom/Bed: Attending Dr: Ordering Provider/Ordering MD: iMchael Lawson MD, [facility] – [place] Date of Service: 02/07/20 Procedure(s): CT head wo con* [id number] Accession Number(s): [id number] Report Number: [id number] PROCEDURE INFORMATION: Exam: CT Head Without Contrast Exam date and time: 02/07/2020 1:03 PM Age: 34 years old Clinical indication: Pain; Headache; Aura effect not specified; Does not respond to medication; Severity not specified; Patient HX: C/O worsening migraine x 4 days - HX of migraines TECHNIQUE: Imaging protocol: Computed tomography of the head without contrast. Radiation optimization: All CT scans at this facility use at least one of these dose optimization techniques: automated exposure control; mA and/or kV adjustment per patient size (includes targeted exams where dose is matched to clinical indication); or iterative reconstruction. COMPARISON: CT head wo con* [id number] 01/28/2020 3:47 PM RADIATION DOSE METRICS: Total DLP (mGy-cm): 750.79 FINDINGS: Brain: Normal. No hemorrhage. Unremarkable white matter. No mass effect. Ventricles: Normal. No ventriculomegaly. Bones/joints: Unremarkable. No acute fracture. Sinuses: Visualized sinuses are unremarkable. No fluid levels. Mastoid air cells: Visualized mastoid air cells are well aerated. Soft tissues: Unremarkable. CT/CT head wo con* [id number] IMPRESSION: No acute intracranial abnormality. Radiation Dose CTDIVOL = (mGy): DLP = 750.79 (mGy-cm) Dictated By:Pinky Guerrero MD Signed By:Pinky Guerrero MDSigned Date/Time:02/07/20 1331 DD/ 1329 Discharge Plan Discharge Patient Disposition: Home Clinical Impression: Migraine Qualifiers: Migraine type: without aura Status migrainosus presence: without status migrainosus Intractability: not intractable Qualified Code(s): G43.009 - Migraine without aura, not intractable, without status migrainosus Uncontrolled type 1 diabetes mellitus Qualifiers: Glycemic state: with hyperglycemia Qualified Code(s): E10.65 - Type 1 diabetes mellitus with hyperglycemia Condition: Stable Prescriptions: Continued insulin lispro [Humalog KwikPen Insulin] 100 unit/mL Insulin Pen See Rx Instructions .ROUTE .COMPLEX RF: 0 Lantus Solostar U-100 Insulin 100 unit/mL (3 mL) Insulin Pen 50 unit SUBCUT BID RF: 0 Discharge Orders: Discharge Order (Routine); Ordered 02/07/20 Ordered By: Michael Lawson Referrals: Elizabeth Dougherty FNP [Primary Care Provider] - 4-7 days Patient Instructions: Headache - Migraine (Adult), Diabetes Mellitus Type 1 in Adults (ED) Activity Restrictions/Additional Instructions: Return for any new or worsening symptoms. Follow-up with your primary care provider within 1 week. Drink plenty of fluids to keep well-hydrated. Ensure you take your insulin as prescribed. Discharge Date/Time: 02/07/20 16:04 Coding Level of Care Code ED Drop Wirer for Reji Chandler
[2020-02-07 14:23] LABS: Urine Appearance SL Hazy (CLEAR); Urine Color Yellow (Yellow)
[2020-02-07 14:24] LABS: Add Urine Microscopic? YES; Bilirubin Urine Neg (NEGATIVE); Blood Urine 2+ (Negative); Glucose Urine UA 4+ (Normal); Ketones Urine 1+ (Negative); Leukocyte Esterase Urine Negative (Negative); Nitrate Urine Negative (Negative); Protein Urine Neg (Negative); Urobilinogen Urine Norm (Negative); pH Urine 5 (5-7)
[2020-02-07 14:31] LABS: Amorphous Sediment Urine TRACE; Amphetamines Screen Urine Negative (Negative); Bacteria Urine 1+; Barbiturates Screen Urine Negative (Negative); Benzodiazepines Screen Urine Negative (Negative); Cocaine Screen Urine Negative (Negative); Mucus Urine TRACE; Opiate Screen Urine Negative (Negative); PCP Screen Urine Negative (Negative); THC Screen Urine Negative (Negative)
[2020-02-07 14:32] LABS: Add Urine Culture? No
[2020-02-07] MEDS: insulin regular-human 100 units/1 mL 10 UNIT IVP (14:50)
[2020-02-07 15:30] LABS: Glucose Point of Care 421 mg/dL (70-110)
[2020-02-07 15:35] VITALS: BP 128/74; PULSE 58; RESP 17; O2SAT 94
--- NOTE | 2020-02-07 15:36 | PC.NURSE ---
BLOOD GLUCOSE CHECKED, 421.
[2020-02-07 15:56] VITALS: BP 125/86; PULSE 72; RESP 18; O2SAT 96
== END 2020-02-07 16:04 | disposition home or self-care (01) ==
PROVIDERS: Emergency Provider Family Medicine; PCP Nurse Practitioner Family
DX: G43.009 Migraine without aura, not intractable, without status migrainosus (principal); E10.65 Type 1 diabetes mellitus with hyperglycemia; Z79.4 Long term (current) use of insulin; I10 Essential (primary) hypertension; F17.210 Nicotine dependence, cigarettes, uncomplicated
CPT/HCPCS: 12345; 36415; 36416; 70450; 80053; 80306; 81001; 81025; 82550; 82962; 83605; 83690; 85025; 86140; 96361; 96374; 96375; 99283; 99284; J1200; J1815; J1885; J2765; J7030

== ENCOUNTER 2020-03-01 18:23 | Emergency (ER) | payer MEDICAID, SELFPAY ==
[2020-03-01 18:28] VITALS: BP 130/89; PULSE 86; RESP 16; TEMP 37; O2SAT 100; BMI 26.4
--- NOTE | 2020-03-01 18:53 | W.ED.HA ---
HPI - Headache General: Chief Complaint: Headache Stated Complaint: bad head ache/ face swelling Time Seen by Provider: 03/01/20 18:33 History of Present Illness: HPI Narrative: has had a migraine x 2 days, feels like right side of upper face is swollen, denies any BS problems MD elicited complaint: migraine Onset (ago): day(s) Onset description: on awakening Location: right and frontal Severity: moderate Pain scale (0-10): 7 Quality & Timing: progressively worsening and similar to previous headaches Exacerbating factors: none Relieving factors: nothing Associated symptoms: Reports photophobia; Deny chest pain, fever(s), nausea, rash or vomiting Treatments prior to arrival: none Review of Systems Const: Denies: fever(s), chills or body aches Eyes: Denies: change in vision or blurry vision ENMT: Denies: throat pain or nasal congestion Card: Denies: chest pain or dyspnea on exertion Resp: Denies: dyspnea, productive cough or non-productive cough GI: Denies: abdominal pain, nausea or vomiting Musc: Denies: extremity pain Skin/Breast: Denies: rash Neuro: Reports: headache(s) Psych: Denies: anxiety or depression Ramiro/Lymph: Denies: easy bruising PFSH ED PFSH: Medical History (Updated 03/01/20 @ 19:44 by SUZANNE Toledo) Anxiety Chronic headache Diabetes DKA (diabetic ketoacidoses) HTN (hypertension) Hyperglycemia Lymphadenitis Migraine headache Pancreatitis PID (pelvic inflammatory disease) Pleural effusion 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 Pyelonephritis Respiratory failure Sepsis Ureterolithiasis Surgical History (Reviewed 02/07/20 @ 16:18 by Michael Lawson MD, [facility] – [place]) History of cholecystectomy History of endoscopy History of lung surgery Social History (Reviewed 02/07/20 @ 16:18 by Michael Lawson MD, [facility] – [place]) Smoking and tobacco status: current every day smoker Household members: spouse Housing: House Female Reproductive History: Date of last menstrual period: 01/23/20 Physical Exam Narrative: EXAM NARRATIVE: no swelling in face on exam Const: COMMON NORMALS: no acute distress, average body habitus and patient oriented x3 HENMT: COMMON NORMALS: normocephalic HEAD & SCALP: normal to inspection and normocephalic FACE & SINUS: normal facial exam Eye: COMMON NORMALS: conjunctivae normal GENERAL EYE: appearance normal, both eyes and all related structures CONJUNCTIVA: Yes conjunctivae normal DIRECT OPHTHALMOSCOPY: Yes photophobia Neck/C-Spine: COMMON NORMALS: no JVD Chest: COMMONS NORMALS: normal inspection of the chest Resp: COMMON NORMALS: normal respiratory effort and clear to auscultation bilaterally AUSCULTATION: clear to auscultation bilaterally Cardio: COMMON NORMALS: no JVD, regular rate and regular rhythm RATE: regular rate RHYTHM: regular rhythm GI: COMMON NORMALS: Normal to inspection, nondistended, normoactive bowel sounds present Extremity: COMMON NORMALS: normal to inspection and full ROM Neuro: COMMON NORMALS: patient oriented x3 Course Vital Signs: Vital signs: Vital Signs Temperature 98.6 F 03/01/20 18:28 Pulse Rate 86 03/01/20 18:28 Respiratory Rate 16 03/01/20 18:28 Blood Pressure 130/89 03/01/20 18:28 Pulse Oximetry 100 03/01/20 18:28 MDM - Headache MDM Narrative: Medical decision making narrative: classic migraine that responded to tx, face is not swollen Discharge Plan Discharge Patient Disposition: Home Clinical Impression: Migraine Qualifiers: Migraine type: without aura Status migrainosus presence: with status migrainosus Intractability: intractable Qualified Code(s): G43.011 - Migraine without aura, intractable, with status migrainosus Condition: Stable Prescriptions: New Imitrex 50 mg tablet See Rx Instructions .ROUTE .COMPLEX Qty: 10 RF: 0 No Action insulin lispro [Humalog KwikPen Insulin] 100 unit/mL Insulin Pen See Rx Instructions .ROUTE .COMPLEX RF: 0 Lantus Solostar U-100 Insulin 100 unit/mL (3 mL) Insulin Pen 50 unit SUBCUT BID RF: 0 Tylenol Extra Strength 500 mg Tablet 500 - 1,000 mg PO Q6H PRN (Reason: Pain) RF: 0 Discharge Orders: Discharge Order (Routine); Ordered 03/01/20 Ordered By: Slim Coker Referrals: Elizabeth Dougherty FNP [Primary Care Provider] - Discharge Diet: Usual diet Discharge Activity: Increase activity as tolerated Patient Instructions: Headache - Migraine (Adult) Activity Restrictions/Additional Instructions: follow up with primary care provider as needed Coding Level of Care Code ED Biogeographer for Chg Fwd Exam Comprehensive
[2020-03-01] MEDS: ketorolac 30 mg/mL INJ IVP (19:18)
[2020-03-01] MEDS: diphenhydrAMINE 50 mg/mL SDV 1mL IVP (19:18)
[2020-03-01] MEDS: sodium chloride 0.9% 1,000 ML 999 ML IV (19:18)
[2020-03-01] MEDS: ondansetron 2 mg/ML SDV 2 mL 4 MG IVP (19:18)
[2020-03-01 19:53] VITALS: BP 123/72; PULSE 87; RESP 17; O2SAT 99
== END 2020-03-01 20:15 | disposition home or self-care (01) ==
PROVIDERS: Emergency Provider Nurse Practitioner Family; PCP Nurse Practitioner Family
DX: G43.011 Migraine without aura, intractable, with status migrainosus (principal); Z79.4 Long term (current) use of insulin; E11.9 Type 2 diabetes mellitus without complications; I10 Essential (primary) hypertension; F17.210 Nicotine dependence, cigarettes, uncomplicated
CPT/HCPCS: 12345; 96361; 96374; 96375; 99282; 99283; J1200; J1885; J2405; J7030

== ENCOUNTER 2020-03-15 13:48 | Emergency (ER) | payer MEDICAID, SELFPAY ==
[2020-03-15 13:56] VITALS: BP 92/61; PULSE 86; RESP 20; TEMP 36.7; O2SAT 98; BMI 24.0
--- NOTE | 2020-03-15 15:37 | CT_ITS ---
WS: [id number] CT HEAD TECHNIQUE: Noncontrast CT of the head obtained from the skullbase to the vertex. CLINICAL INFORMATION: headache, hx of charimalformation COMPARISON: February 07, 2020, 7 , . MRI DLP: 756.[address] scans at [facility] use at least one of these dose optimization techniques: automat ed exposure control; mA and/or kV adjustment per patient size (includes targeted exams where dose is matched to clinical indication); or iterative reconstruction. FINDINGS: No evidence of intracranial hemorrhage or mass effect. Ventricular system and basal cisterns are huston nt.No extra-axial fluid collections. No evidence of mass or mass effect. Normal florentino-white differenti ation. Borderline Chiari malformation unchanged. No hydrocephalus. Normal fourth ventricle. Paranasal sinuses and mastoid air cells are well aerated. .Normal visualized soft tissues. CT/CT head wo con* [id number] IMPRESSION: 1. No evidence of intracranial hemorrhage or mass effect. 2. Normal florentino-white differentiation. 3. Borderline Chiari malformation unchanged. No hydrocephalus. 4. No acute intracranial findings.
--- NOTE | 2020-03-15 15:38 | ED_ITS ---
HPI - Headache General: Chief Complaint: Headache Stated Complaint: benavides Time Seen by Provider: 03/15/20 15:30 History of Present Illness: HPI Narrative: Since the migraine is started this morning. Patient said she been having more progressive frequent migraines over the last few months. States she has history of a rocael malformation and has not been able get that checked out due to the COVID disease. That has been in the community. Says she needs to get checked out because her doctor wants to make sure had not worsen she said her headache is bad but it is not the worst she is ever had. She has been nauseated she has photo and phonophobia also. MD elicited complaint: migraine Pertinent past history: migraines Onset (ago): hour(s) Time: 08:00 Onset description: on awakening Location: band-like Severity: severe Quality & Timing: throbbing and squeezing Exacerbating factors: light and noise Relieving factors: nothing Associated symptoms: Reports no associated symptoms; Deny chest pain, fever(s), nausea, rash or vomiting Review of Systems Const: Denies: fever(s), chills or body aches Eyes: Denies: change in vision or blurry vision ENMT: Denies: throat pain or nasal congestion Card: Denies: chest pain or dyspnea on exertion Resp: Denies: dyspnea, productive cough or non-productive cough GI: Denies: abdominal pain, nausea or vomiting Musc: Denies: extremity pain Skin/Breast: Denies: rash Neuro: Reports: headache(s) Psych: Denies: anxiety or depression Ramiro/Lymph: Denies: easy bruising PFSH ED PFSH: Medical History (Updated 03/15/20 @ 16:57 by SUZANNE Tol[place]) Anxiety Chronic headache Diabetes DKA (diabetic ketoacidoses) HTN (hypertension) Hyperglycemia Lymphadenitis Migraine headache Pancreatitis PID (pelvic inflammatory disease) Pleural effusion 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 Pyelonephritis Respiratory failure Sepsis Ureterolithiasis Surgical History (Reviewed 02/07/20 @ 16:18 by Michael Lawson MD, [facility] [place]) History of cholecystectomy History of endoscopy History of lung surgery Social History (Reviewed 02/07/20 @ 16:18 by Michael Lawson MD, [facility] [place]) Smoking and tobacco status: current every day smoker Household members: spouse Housing: House Female Reproductive History: Date of last menstrual period: 03/15/20 Physical Exam Const: COMMON NORMALS: no acute distress, average body habitus and patient oriented x3 HENMT: COMMON NORMALS: normocephalic HEAD & SCALP: normal to inspection and normocephalic FACE & SINUS: normal facial exam Eye: COMMON NORMALS: conjunctivae normal GENERAL EYE: appearance normal, both eyes and all related structures CONJUNCTIVA: Yes conjunctivae normal Neck/C-Spine: COMMON NORMALS: no JVD Chest: COMMONS NORMALS: normal inspection of the chest Resp: COMMON NORMALS: normal respiratory effort and clear to auscultation bilaterally AUSCULTATION: clear to auscultation bilaterally Cardio: COMMON NORMALS: no JVD, regular rate and regular rhythm RATE: regular rate RHYTHM: regular rhythm GI: COMMON NORMALS: Normal to inspection, nondistended, normoactive bowel sounds present Extremity: COMMON NORMALS: normal to inspection and full ROM Neuro: COMMON NORMALS: patient oriented x3 and CN's II-XII intact bilaterally Course Vital Signs: Vital signs: Vital Signs Temperature 98.1 F 03/15/20 13:56 Pulse Rate 80 03/15/20 18:27 Respiratory Rate 18 03/15/20 18:27 Blood Pressure 112/74 03/15/20 18:27 Pulse Oximetry 99 03/15/20 18:27 MDM - Headache MDM Narrative: Medical decision making narrative: Discussed her history of migraines Chiari malformation discussed signs symptoms of meningitis tension headache regular headache patient return if symptoms do not improve or if they worsen. Patient states that sumatriptan and does not work for her. Discharge Plan Discharge Patient Disposition: Home Clinical Impression: Migraine Qualifiers: Migraine type: without aura Status migrainosus presence: with status migrainosus Intractability: intractable Qualified Code(s): G43.011 - Migraine without aura, intractable, with status migrainosus Condition: Stable Prescriptions: New Zofran 4 mg tablet 4 mg PO Q8H PRN (Reason: nausea and vomiting) 3 Days Qty: 9 RF: 0 No Action insulin lispro [Humalog KwikPen Insulin] 100 unit/mL Insulin Pen See Rx Instructions .ROUTE .COMPLEX RF: 0 Lantus Solostar U-100 Insulin 100 unit/mL (3 mL) Insulin Pen 50 unit SUBCUT BID RF: 0 acetaminophen [Tylenol Extra Strength] 500 mg Tablet 500 - 1,000 mg PO Q6H PRN (Reason: Pain) RF: 0 sumatriptan succinate [Imitrex] 50 mg tablet See Rx Instructions .ROUTE .COMPLEX Qty: 10 RF: 0 Discharge Orders: Discharge Order (Routine); Ordered 03/15/20 Ordered By: Slim Coker Referrals: Elizabeth Dougherty FNP [Primary Care Provider] - Discharge Diet: Usual diet Discharge Activity: Increase activity as tolerated Patient Instructions: Migraine Headache (ED) Activity Restrictions/Additional Instructions: Follow-up with medical provider as directed. Take medications as prescribed. Return to the ER or your medical provider if condition worsens. Please read and understand discharge instructions. If any questions ask please. Follow-up with Elizabeth Dougherty go over medications for migraine treatment. Discharge Date/Time: 03/15/20 18:29 Coding Level of Care Code ED Staff Certified Nurse Midwife for [facility] Fwd Exam Comprehensive
[2020-03-15] MEDS: diphenhydrAMINE 50 mg/mL SDV 1mL IVP (16:12)
[2020-03-15] MEDS: ondansetron 2 mg/ML SDV 2 mL 4 MG IVP (16:13)
[2020-03-15] MEDS: ketorolac 30 mg/mL INJ IVP (16:13)
[2020-03-15] MEDS: sodium chloride 0.9% 1,000 ML 999 ML IV (16:13)
[2020-03-15 17:15] VITALS: BP 106/85; PULSE 88; RESP 18; O2SAT 100
[2020-03-15] MEDS: HYDROcodone-acetaminophen 5-325 mg Tablet 1 TAB PO (17:33)
[2020-03-15] MEDS: orphenadrine 30 mg/mL Inj 2 mL 60 MG IVP (17:33)
[2020-03-15 18:27] VITALS: BP 112/74; PULSE 80; RESP 18; O2SAT 99
== END 2020-03-15 18:29 | disposition home or self-care (01) ==
PROVIDERS: Emergency Provider Nurse Practitioner Family; PCP Nurse Practitioner Family
DX: G43.011 Migraine without aura, intractable, with status migrainosus (principal); Z79.4 Long term (current) use of insulin; E11.9 Type 2 diabetes mellitus without complications; I10 Essential (primary) hypertension; F17.210 Nicotine dependence, cigarettes, uncomplicated
CPT/HCPCS: 12345; 70450; 96360; 96374; 96375; 96376; 99283; J1200; J1885; J2360; J2405; J7030

== ENCOUNTER 2020-03-17 11:23 | Emergency (ER) | payer MEDICAID, SELFPAY ==
[2020-03-17 11:41] VITALS: BP 100/82; PULSE 88; RESP 16; TEMP 37; O2SAT 95; BMI 24.0
--- NOTE | 2020-03-17 12:44 | W.ED.FALL ---
HPI - Fall General: Chief Complaint: Fall Stated Complaint: NECK AND BACK PAIN Time Seen by Provider: 03/17/20 11:53 Source: patient Mode of arrival: ambulatory Limitations: no limitations History of Present Illness: HPI Narrative: Patient is a 34-year-old female who presents to ED today with complaints of neck and back pain following a fall yesterday. Patient tells me she was walking when her legs gave out causing her to fall directly onto her back. She also states she has a migraine. Patient has an extensive history of migraine headaches and feels her headache today is identical. Patient was seen here recently for migraine headache. complaint: fall Onset (ago): hour(s) Fall from: standing Fall witnessed: yes, by bystander Place fall occurred: home Loss of consciousness: None Prolonged down time: no Symptoms prior to fall: none Associated symptoms-after fall: Reports headache(s) and neck pain; Denies abdominal pain, chest pain, confusion, difficulty walking or vertigo Review of Systems Const: Denies: fever(s), chills, body aches, fatigue or malaise Eyes: Denies: change in vision, blurry vision, photophobia, floaters or seeing flashes Card: Denies: chest pain Resp: Denies: dyspnea GI: Denies: abdominal pain, nausea or vomiting : Denies: flank pain, difficulty voiding, dysuria, urinary frequency, urinary urgency or urinary hesitancy Musc: Reports: neck pain and back pain; Denies: extremity pain, extremity swelling, joint pain or joint swelling Neuro: Reports: headache(s); Denies: numbness in extremities, weakness in extremities, sensory changes, lack of coordination, difficulty walking, dizziness, vertigo or confusion PFS ED PFSH: Medical History (Updated 03/17/20 @ 13:42 by LORE Corona) Anxiety Chronic headache Diabetes DKA (diabetic ketoacidoses) HTN (hypertension) Hyperglycemia Lymphadenitis Migraine headache Pancreatitis PID (pelvic inflammatory disease) Pleural effusion 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 Pyelonephritis Respiratory failure Sepsis Ureterolithiasis Surgical History (Reviewed 02/07/20 @ 16:18 by Michael Lawson MD, [facility] [place]) History of cholecystectomy History of endoscopy History of lung surgery Social History (Reviewed 02/07/20 @ 16:18 by Michael Lawson MD, [facility] [place]) Smoking and tobacco status: current every day smoker Household members: spouse Housing: House Female Reproductive History: Date of last menstrual period: 03/15/20 Physical Exam Const: COMMON NORMALS: no acute distress, average body habitus, patient oriented x3, no limitations, healthy appearing, alert and well nourished ORIENTATION/CONSCIOUSNESS: Yes oriented to person, Yes oriented to place and Yes oriented to time HENMT: COMMON NORMALS: normocephalic and atraumatic HEAD & SCALP: normocephalic and atraumatic Eye: COMMON NORMALS: Equal, round and reactive pupils present, EOMs intact bilaterally and no scleral icterus GENERAL EYE: appearance normal, both eyes and all related structures PUPIL: Yes Equal, round and reactive pupils present Neck/C-Spine: COMMON NORMALS: full ROM, no lymphadenopathy and no meningeal signs CERVICAL SPINE: Yes cervical ROM normal, Yes Cervical spine tenderness (mild throughout c spine) and No Paracervical muscle tenderness Resp: COMMON NORMALS: normal respiratory effort and clear to auscultation bilaterally AUSCULTATION: clear to auscultation bilaterally Cardio: COMMON NORMALS: regular rate and regular rhythm RATE: regular rate RHYTHM: regular rhythm : COMMON NORMALS: Yes no CVA tenderness BLADDER/KIDNEY EXAM: Yes no CVA tenderness Back/Pelvis: COMMON NORMALS: no CVA tenderness, thoraco-lumbar ROM normal and straight leg raise negative bilaterally THORACIC SPINE/UPPER BACK: Yes thoracic spinal tenderness (throughout thoracic spine) and No paraspinal muscle spasm LUMBAR SPINE/LOWER BACK: Yes lumbar spinal tenderness (throughout lumbar spine) and No paraspinal muscle spasm PELVIS: Yes buttocks normal SACROILIAC JOINTS: Yes SI joints normal Extremity: COMMON NORMALS: normal to inspection and full ROM GENERAL: Yes normal exam except as noted Neuro: COMMON NORMALS: patient oriented x3, moves all extremities, no focal motor deficits and no sensory deficits noted SENSORIUM/ORIENTATION: Yes alert, Yes oriented to person, Yes oriented to place and Yes oriented to time MENINGEAL SIGNS: Yes no meningeal signs Skin: COMMON NORMALS: no rashes or lesions noted GENERAL SKIN EXAM: no rashes or lesions noted Course Vital Signs: Vital signs: Vital Signs Temperature 98.6 F 03/17/20 11:41 Pulse Rate 88 03/17/20 11:41 Respiratory Rate 16 03/17/20 11:41 Blood Pressure 100/82 03/17/20 11:41 Pulse Oximetry 95 03/17/20 11:41 MDM - Fall Imaging Data^: XR cervical : Radiologist's impression: [place] [id number] XRay Report Signed Patient: Donita Aguilar Unit #: [id number] : 1985 Age/Sex: 34 / F ADM Date: 03/17/20 Loc: ER Room/Bed: Attending Dr: Ordering Provider/Ordering MD: Fany Machado Date of Service: 03/17/20 Procedure(s): XR cervical spine 3V* 29089 Accession Number(s): [id number] Report Number: [id number] WS: [id number] Cervical spine, 03/17/2020 Clinical Data: fall, pain Comparison: None. Findings: No compression fractures are seen. The disc heights are normal. There is no prevertebral soft tissue swelling. The odontoid is unremarkable. The soft tissues of the neck and the lung apices are normal. XR/XR cervical spine 3V* 53853 Impression: Negative cervical spine. Dictated By: Elizabeth Gandhi MD Signed By: Elizabeth Gandhi MD Signed Date/Time: 03/17/20 1321 DD/ 1320 XR thoracic : Radiologist's impression: [address] [address] XRay Report Signed Patient: Donita Aguilar Unit #: [id number] : 1985 Age/Sex: 34 / F ADM Date: 03/17/20 Loc: ER Room/Bed: Attending Dr: Ordering Provider/Ordering MD: Fany Machado Date of Service: 03/17/20 Procedure(s): XR thoracic spine 3V* 47451 Accession Number(s): [id number] Report Number: [id number] WS: [id number] Thoracic spine, 3 views, 03/17/2020 Clinical Data: fall/thoracic Comparison: None. Findings: No compression fractures are seen. The disc heights are normal. The patient has had thoracic surgery in the left paravertebral region with small residual surgical tierra. There is a healed left fourth rib fracture in the posterior lateral aspect. There are clips in the right upper quadrant from a cholecystectomy. XR/XR thoracic spine 3V* 26390 Impression: Negative thoracic spine. Dictated By: Elizabeth Gandhi MD Signed By: Elizabeth Gandhi MD Signed Date/Time: 03/17/201322 DD/ 132 XR lumbar : Radiologist's impression: [address] [address] XRay Report Signed Patient: Donita Aguilar Unit #: [id number] : 1985 Age/Sex: 34 / F ADM Date: 03/17/20 Loc: ER Room/Bed: Attending Dr: Ordering Provider/Ordering MD: Fany Machado Date of Service: 03/17/20 Procedure(s): XR lumbar spine 2-3V* 03128 Accession Number(s): [id number] Report Number: [id number] WS: [id number] Lumbar spine, 3 views, 03/17/2020 Clinical Data: fall, pain Comparison: None. Findings: No compression fractures or subluxation is seen. No disc space narrowing is seen. The transverse processes and SI joints are normal. There are clips in the right upper quadrant from a cholecystectomy. There is a large amount of fecal material throughout the colon. XR/XR lumbar spine 2-3V* 64814 Impression: Negative lumbar spine. Dictated By: Elizabeth Gandhi MD Signed By: Elizabeth Gandhi MD Signed Date/Time: 03/17/201323 DD/ 132 Discharge Plan Discharge Patient Disposition: Home Clinical Impression: Acute neck pain Fall Qualifiers: Encounter type: initial encounter Qualified Code(s): W19.XXXA - Unspecified fall, initial encounter Back pain Qualifiers: Back pain location: low back pain Chronicity: acute Back pain laterality: midline Sciatica presence: without sciatica Qualified Code(s): M54.5 - Low back pain Headache, migraine Qualifiers: Migraine type: without aura Status migrainosus presence: without status migrainosus Intractability: not intractable Qualified Code(s): G43.009 - Migraine without aura, not intractable, without status migrainosus Condition: Stable Prescriptions: No Action insulin lispro [Humalog KwikPen Insulin] 100 unit/mL Insulin Pen See Rx Instructions .ROUTE .COMPLEX RF: 0 Lantus Solostar U-100 Insulin 100 unit/mL (3 mL) Insulin Pen 50 unit SUBCUT BID RF: 0 acetaminophen [Tylenol Extra Strength] 500 mg Tablet 500 - 1,000 mg PO Q6H PRN (Reason: Pain) RF: 0 sumatriptan succinate [Imitrex] 50 mg tablet See Rx Instructions .ROUTE .COMPLEX Qty: 10 RF: 0 ondansetron HCl [Zofran] 4 mg tablet 4 mg PO Q8H PRN (Reason: nausea and vomiting) 3 Days Qty: 9 RF: 0 Discharge Orders: Discharge Order (Routine); Ordered 03/17/20 Ordered By: Fany Machado Referrals: Elizabeth Dougherty FNP [Primary Care Provider] - Coding Level of Care Code ED Dealer Accounts Investigator for g Ramesh
--- NOTE | 2020-03-17 12:47 | XR_ITS ---
WS: [id number] Cervical spine, 03/17/2020 Clinical Data: fall, pain Comparison: None. Findings: No compression fractures are seen. The disc heights are normal. There is no prevertebral so ft tissue swelling. The odontoid is unremarkable. The soft tissues of the neck and the lung apices ar e normal. XR/XR cervical spine 3V* 25540 Impression: Negative cervical spine.
--- NOTE | 2020-03-17 12:47 | XR_ITS ---
WS: [id number] Lumbar spine, 3 views, 03/17/2020 Clinical Data: fall, pain Comparison: None. Findings: No compression fractures or subluxation is seen. No disc space narrowing is seen. The transverse proc esses and SI joints are normal. There are clips in the right upper quadrant from a cholecystectomy. There is a large amount of fecal material throughout the colon. XR/XR lumbar spine 2-3V* 17768 Impression: Negative lumbar spine.
--- NOTE | 2020-03-17 12:47 | XR_ITS ---
WS: [id number] Thoracic spine, 3 views, 03/17/2020 Clinical Data: fall/thoracic Comparison: None. Findings: No compression fractures are seen. The disc heights are normal. The patient has had thoracic surgery in the left paravertebral region with small residual surgical s taples. There is a healed left fourth rib fracture in the posterior lateral aspect. There are clips i n the right upper quadrant from a cholecystectomy. XR/XR thoracic spine 3V* 33476 Impression: Negative thoracic spine.
[2020-03-17] MEDS: ketorolac 60 mg/2 mL INJ IM (12:58)
[2020-03-17] MEDS: ondansetron 2 mg/ML SDV 2 mL 4 MG IM (13:49)
[2020-03-17] MEDS: diphenhydrAMINE 50 mg/mL SDV 1mL IM (13:49)
[2020-03-17 14:01] VITALS: BP 118/82; PULSE 92; RESP 18; O2SAT 95
== END 2020-03-17 14:02 | disposition home or self-care (01) ==
PROVIDERS: Emergency Provider Physician Assistant; PCP Nurse Practitioner Family
DX: E11.9 Type 2 diabetes mellitus without complications (principal); I10 Essential (primary) hypertension; F17.210 Nicotine dependence, cigarettes, uncomplicated
CPT/HCPCS: 12345; 72040; 72072; 72100; 96372; 99281; 99283; J1200; J1885; J2405

== ENCOUNTER → 2020-03-22 13:37 | Outpatient (BNVA) | payer MEDICAID, SELFPAY | PROVIDERS: PCP Nurse Practitioner Family; Visit Provider Specialist | DX: G43.011 Migraine without aura, intractable, with status migrainosus (principal); E10.40 Type 1 diabetes mellitus with diabetic neuropathy, unspecified; E10.65 Type 1 diabetes mellitus with hyperglycemia; F17.210 Nicotine dependence, cigarettes, uncomplicated | CPT/HCPCS: 99204 ==

== ENCOUNTER 2020-04-05 19:48 | Emergency (ER) | payer MEDICAID, SELFPAY ==
[2020-04-05 19:57] VITALS: BP 122/82; PULSE 95; RESP 18; TEMP 36.6; BMI 26.4
--- NOTE | 2020-04-05 20:10 | ED_ITS ---
HPI - Headache General: Chief Complaint: Headache Stated Complaint: headache Time Seen by Provider: 04/05/20 20:10 History of Present Illness: HPI Narrative: Patient is a 34-year-old female comes to the ED with a headache and tender bump on back of her neck. Patient has past medical history of diabetes type 1 and migraines. She says the headache started approximately a day and a half ago. She endorses having nausea and photophobia. She rates the headache a 10 out of 10 and is taking couple doses of Tylenol today and it has not helped. Her headache is located on the right and posterior aspect of head and she describes the pain as sharp. She says she has mild blurry vision when she looks up bilaterally but no other vision changes or problems. Patient also has a tender nodule on the right posterior aspect of neck. She says the nodule popped up this morning. She says it is very tender to touch. Denies any numbness weakness to face or extremities. Denies fever, chills, emesis, abdominal pain, bladder or bowel symptoms. Associated symptoms: Reports nausea; Deny chest pain, fever(s), rash or vomiting Review of Systems Const: Denies: fever(s), chills or fatigue Eyes: Denies: change in vision or eye discomfort ENMT: Denies: throat pain, odynophagia, nasal discharge or nasal congestion Card: Denies: chest pain, palpitations, edema, swelling of feet/ankles, dyspnea on exertion or orthopnea Resp: Denies: dyspnea, productive cough or non-productive cough GI: Reports: nausea; Denies: abdominal pain, vomiting, diarrhea, constipation or hematochezia : Denies: flank pain, dysuria or hematuria Musc: Denies: neck pain, back pain or extremity swelling Skin/Breast: Denies: rash or new lesions Neuro: Reports: headache(s); Denies: numbness in extremities or weakness in extremities Ramiro/Lymph: Reports: tender lymph nodes (right posterior aspect of neck) [facility] ED PFSH: Medical History Anxiety Chronic headache Diabetes DKA (diabetic ketoacidoses) HTN (hypertension) Hyperglycemia Lymphadenitis Migraine headache Pancreatitis PID (pelvic inflammatory disease) Pleural effusion 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 Pyelonephritis Respiratory failure Sepsis Ureterolithiasis Surgical History History of cholecystectomy History of endoscopy History of lung surgery Social History Smoking and tobacco status: current every day smoker Household members: spouse Housing: House Female Reproductive History: Date of last menstrual period: 03/25/20 Physical Exam Const: COMMON NORMALS: no acute distress, patient oriented x3 and alert GENERAL APPEARANCE: cooperative and comfortable HENMT: COMMON NORMALS: normocephalic HEAD & SCALP: normocephalic MOUTH: Normal oral and palatal mucosa present THROAT: posterior oropharynx normal and uvula midline Eye: COMMON NORMALS: Equal, round and reactive pupils present, EOMs intact bilaterally and normal visual torres by confrontation PUPIL: Yes Equal, round and reactive pupils present Neck/C-Spine: COMMON NORMALS: supple GENERAL: Yes normal visual inspection Lymph: LYMPHATIC: lymphadenopathy right posterior cervical single, small, soft and tender; not warm and shorty 0.5 cm Resp: COMMON NORMALS: normal respiratory effort, No retractions, No use of accessory muscles and clear to auscultation bilaterally AUSCULTATION: clear to auscultation bilaterally Cardio: COMMON NORMALS: regular rate, regular rhythm, S1 normal heart sound present, S2 normal heart sound present, No gallops present (Cardio), No clicks present (Cardio), No murmurs present (Cardio) and Peripheral pulses 2+ throughout RATE: regular rate RHYTHM: regular rhythm HEART SOUNDS: S1 normal heart sound present and S2 normal heart sound present PERIPHERAL PULSES: Peripheral pulses 2+ throughout GI: COMMON NORMALS: Normal to inspection, nondistended, normoactive bowel sounds present, Soft to palpation, non-tender and no masses PALPATION: Yes Soft to palpation : COMMON NORMALS: Yes no CVA tenderness BLADDER/KIDNEY EXAM: Yes no CVA tenderness Back/Pelvis: COMMON NORMALS: no CVA tenderness Extremity: COMMON NORMALS: normal to inspection and no pedal edema Neuro: COMMON NORMALS: patient oriented x3, CN's II-XII intact bilaterally, moves all extremities, no focal motor deficits and no sensory deficits noted SENSORIUM/ORIENTATION: Yes alert SENSORY EXAM: Yes extremities (intact) MOTOR EXAM: 5/5 motor strength present throughout Skin: COMMON NORMALS: no rashes or lesions noted GENERAL SKIN EXAM: no rashes or lesions noted and dry skin Course Reevaluation(s): Reevaluation #1: Checked on patient after she was given meds to see her migraine has improved. Patient says her migraine is improved greatly and she is ready to discharge to go home. Time: 21:39 Vital Signs: Vital signs: Vital Signs Temperature 97.9 F 04/05/20 19:57 Pulse Rate 64 04/05/20 21:55 Respiratory Rate 18 04/05/20 21:55 Blood Pressure 118/68 04/05/20 21:55 Pulse Oximetry 100 04/05/20 21:55 MDM - Headache MDM Narrative: Medical decision making narrative: Patient is a 34-year-old female who comes to the ED with a migraine and tender nodule on her neck. Patient is a past medical history of migraines. She endorses having some nausea and photophobia. Patient was seen here for headache on 03/15 CT of head was performed and showed no acute findings. Neuro exam was normal and showed no deficits. physical exam?was remarkable for right posterior cervical tenderness. Patient was given IV migraine cocktail and her symptoms improved. She was diagnosed with a migraine and lymphadenitis. Sent home with a prescription for Augmentin and Medrol Dosepak to treat lymphadenitis. Return to ED precautions given.Follow-up with PCP in 7 to 10 days. Patient understood and agreed with plan. Discharge Plan Discharge Patient Disposition: Home Clinical Impression: Lymphadenitis, acute Migraine Qualifiers: Migraine type: without aura Status migrainosus presence: without status migrainosus Intractability: not intractable Qualified Code(s): G43.009 - Migraine without aura, not intractable, without status migrainosus Condition: Stable Prescriptions: New Augmentin 500-125 mg tablet 1 tab PO BID 7 Days Qty: 14 RF: 0 Medrol (Raul) 4 mg tablets,dose pack See Rx Instructions .ROUTE .COMPLEX Qty: 21 RF: 0 No Action topiramate [Topamax] 100 mg tablet 100 mg PO DAILY Qty: 30 RF: 3 insulin lispro [Humalog KwikPen Insulin] 100 unit/mL Insulin Pen See Rx Instructions .ROUTE .COMPLEX RF: 0 Lantus Solostar U-100 Insulin 100 unit/mL (3 mL) Insulin Pen 50 unit SUBCUT BID RF: 0 acetaminophen [Tylenol Extra Strength] 500 mg Tablet 500 - 1,000 mg PO Q6H PRN (Reason: Pain) RF: 0 Discharge Orders: Discharge Order (Routine); Ordered 04/05/20 Ordered By: Les Guy Referrals: Elizabeth Dougherty FNP [Primary Care Provider] - Discharge Diet: Regular Discharge Activity: Increase activity as tolerated Patient Instructions: Lymphadenitis, Migraine Headache (ED) Activity Restrictions/Additional Instructions: Follow-up with medical provider as directed in 7-10 days. Take medications as prescribed. Return to the ER or your medical provider if condition worsens. Please read and understand discharge instructions. If any questions, please ask. Discharge Date/Time: 04/05/20 21:56 Coding Level of Care Code ED Lean Specialist for Kraigg Fwd Exam Comprehensive
[2020-04-05] MEDS: ketorolac 30 mg/mL INJ IVP (20:57)
[2020-04-05] MEDS: diphenhydrAMINE 50 mg/mL SDV 1mL 25 MG IVP (20:57)
[2020-04-05] MEDS: metoclopramide 5 mg/mL SDV 2 mL 10 MG IVP (20:58)
[2020-04-05] MEDS: dexamethasone 10 mg/mL INJ IVP (20:58)
[2020-04-05] MEDS: sodium chloride 0.9% 1,000 ML 999 ML IV (20:58)
[2020-04-05 21:04] VITALS: BP 124/74; PULSE 64; RESP 18; O2SAT 100
[2020-04-05 21:55] VITALS: BP 118/68; PULSE 64; RESP 18; O2SAT 100
== END 2020-04-05 21:56 | disposition home or self-care (01) ==
PROVIDERS: Emergency Provider Physician Assistant; PCP Nurse Practitioner Family
DX: G43.009 Migraine without aura, not intractable, without status migrainosus (principal); L04.9 Acute lymphadenitis, unspecified; Z79.4 Long term (current) use of insulin; E11.9 Type 2 diabetes mellitus without complications; I10 Essential (primary) hypertension; F17.210 Nicotine dependence, cigarettes, uncomplicated
CPT/HCPCS: 12345; 96361; 96374; 96375; 99283; J1100; J1200; J1885; J2765; J7030

== ENCOUNTER 2020-04-25 13:15 | Outpatient (CLI) | payer MEDICAID, SELFPAY ==
[2020-04-26 14:08] LABS: C-Peptide 0.53 ng/mL (0.80-3.85)
== END 2020-04-25 13:16 | disposition home or self-care (01) ==
LOC: LAB 13:19
PROVIDERS: PCP Nurse Practitioner Family; Visit Provider Internal Medicine
DX: E10.65 Type 1 diabetes mellitus with hyperglycemia (principal)
CPT/HCPCS: 84681

== ENCOUNTER 2020-05-06 18:10 | Emergency (ER) | payer MEDICAID, SELFPAY ==
[2020-05-06 18:19] VITALS: BP 140/90; PULSE 71; RESP 18; TEMP 36.6; O2SAT 99; BMI 28.3
[2020-05-06 19:21] LABS: Basophils % 0.5 %; Eosinophils # 0.2 10^3/uL (0.0-0.8); Eosinophils % 2.1 %; Hematocrit 39.3 % (37.0-47.0); Lymphocytes # 2.3 10^3/uL (0.8-4.8); Lymphocytes % 27.4 %; Mean Corpuscular HGB Conc 33.1 g/dL (30.0-36.0); Mean Corpuscular Hemoglobin 28.8 pg (28.0-34.0); Mean Corpuscular Volume 87.1 fL (81-99); Mean Platelet Volume 10.2 fL (7.4-10.4); Monocytes # 0.6 10^3/uL (0.2-0.9); Monocytes % 7.2 %; Neutrophils # 5.14 10^3/uL (1.8-7.7); Neutrophils % 62.6 %; Nucleated Red Blood Cells % 0 %; Platelet Count 305 10^3/cmm (130-400); Red Blood Count 4.51 10^6/uL (4.1-5.3); Red Cell Distribution Width 12.3 % (12.1-15.1); White Blood Count 8.2 10^3/uL (4.0-10.0)
[2020-05-06 19:38] LABS: Alanine Aminotransferase 13 U/L (0-33); Albumin Level 3.6 g/dL (3.5-5.2); Alkaline Phosphatase 87 IU/L (35-105); Aspartate Amino Transferase 17 U/L (0-32); Blood Urea Nitrogen 12 mg/dL (6-20); Calcium 9.4 mg/dL (8.5-10.5); Carbon Dioxide 31 mmol/L (22-29); Chloride 100 mmol/L (98-107); Glomerular Filtration Rate 115.1 mL/min (90-130); Glucose 353 mg/dL (65-115); Lipase 21 U/L (13-60); Osmolality Calculated 302 mOsm/kg (285-295); Sodium 139 mmol/L (136-145); Total Bilirubin 0.2 mg/dL (0.15-1.2); Total Protein 6.6 g/dL (6.6-8.7)
--- NOTE | 2020-05-06 20:24 | W.ED.ABDPA2 ---
HPI - Abdominal Pain General: Chief Complaint: Abdominal Pain Stated Complaint: CENTRAL UPPER ABD PAIN Time Seen by Provider: 05/06/20 20:15 History of Present Illness: HPI narrative: 34-year-old female presents with epigastric belly pain since 8 PM last night. The pain is sharp. She is nauseated. She has not thrown up. She has had some diarrhea. She has a history of diabetes. She also has a history of a cholecystectomy. MD elicited complaint: abdominal pain Pertinent past history: other Onset (ago): hour(s) (24) Pain Consistency: constant Location: Epigastric Severity: moderate Quality: cramping and stabbing Radiation: none Migration to: no migration Exacerbating factors: movement Relieving factors: nothing Associated Symptoms: Reports change in stool character, diarrhea, loose stools and nausea; Denies belching, chills, coffee ground emesis, dysuria and vomiting Related Data: Date of Last Menstrual Period: 03/25/20 Review of Systems Const: Denies: chills Eyes: Denies: change in vision or blurry vision ENMT: Denies: odynophagia or sinus pain Card: Denies: chest pain, palpitations or irregular heart rhythm Resp: Denies: dyspnea, productive cough, non-productive cough or wheezing GI: Reports: nausea, diarrhea and change in stool character; Denies: vomiting, coffee ground emesis or belching : Denies: dysuria Musc: Denies: neck pain or back pain Skin/Breast: Denies: rash Neuro: Denies: headache(s), dizziness or vertigo Psych: Denies: anxiety PFS ED PFSH: Medical History (Updated 05/06/20 @ 22:33 by Jak Larose DO) Anxiety Chronic headache Diabetes DKA (diabetic ketoacidoses) HTN (hypertension) Hyperglycemia Lymphadenitis Migraine headache Pancreatitis PID (pelvic inflammatory disease) Pleural effusion 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 Pyelonephritis Respiratory failure Sepsis Ureterolithiasis Surgical History History of cholecystectomy History of endoscopy History of lung surgery Social History Smoking and tobacco status: current every day smoker Household members: spouse Housing: House Female Reproductive History: Date of last menstrual period: 03/25/20 Physical Exam Const: GENERAL APPEARANCE: well developed ORIENTATION/CONSCIOUSNESS: Yes oriented to person, Yes oriented to place and Yes oriented to time HENMT: COMMON NORMALS: normocephalic, external ears normal and Normal external nose present HEAD & SCALP: normocephalic FACE & SINUS: normal facial exam NOSE: Normal external nose present and No nasal discharge present EXTERNAL EAR: Yes external ears normal THROAT: posterior oropharynx normal; no peritonsillar mass Eye: COMMON NORMALS: Equal, round and reactive pupils present, EOMs intact bilaterally and conjunctivae normal EYELID: eyelids normal CONJUNCTIVA: Yes conjunctivae normal PUPIL: Yes Equal, round and reactive pupils present Neck/C-Spine: GENERAL: No tracheal deviation Chest: COMMONS NORMALS: normal inspection of the chest CHEST: No tenderness Resp: COMMON NORMALS: clear to auscultation bilaterally EFFORT & INSPECTION: No tachypneic, No respiratory distress, No retractions, No uses accessory muscles and No tracheal deviation AUSCULTATION: clear to auscultation bilaterally, no rhonchi, no wheezes and lung sounds not diminished Cardio: COMMON NORMALS: regular rate and regular rhythm RATE: regular rate RHYTHM: regular rhythm HEART SOUNDS: no murmurs PERIPHERAL PULSES: radial pulses present GI: INSPECTION: No abdominal distension AUSCULTATION: No Hyperactive bowel sounds present and No Hypoactive bowel sounds present PALPATION: Yes Tenderness to palpation present (GI) (epigastric) Details: RUQ, Yes Guarding due to palpation present (GI) and No Rigid due to palpation PERCUSSION: no dullness to percussion and no tympanic to percussion Neuro: SENSORIUM/ORIENTATION: Yes oriented to person, Yes oriented to place and Yes oriented to time Psych: COMMON NORMALS: mental status grossly normal Skin: COMMON NORMALS: no rashes or lesions noted GENERAL SKIN EXAM: no rashes or lesions noted Course Vital Signs: Vital signs: Vital Signs Temperature 97.8 F 05/06/20 18:19 Pulse Rate 77 05/06/20 22:58 Respiratory Rate 18 05/06/20 22:58 Blood Pressure 132/97 05/06/20 22:58 Pulse Oximetry 96 05/06/20 22:58 MDM - Abdominal Pain Lab Data: Labs: Lab Results 05/06/20 05/06/20 05/06/20 Range/Units 19:15 19:15 19:15 WBC 8.2 (4.0-10.0) 10^3/ uL RBC 4.51 (4.1-5.3) 10^6/u L Hgb 13.0 (11.5-15.3) g/dL Hct 39.3 (37.0-47.0) % MCV 87.1 (81-99) fL MCH 28.8 (28.0-34.0) pg MCHC 33.1 (30.0-36.0) g/dL RDW 12.3 (12.1-15.1) % Plt Count 305 (130-400) 10^3/c mm MPV 10.2 (7.4-10.4) fL Neut % (Auto) 62.6 % Lymph % (Auto) 27.4 % [place] % (Auto) 7.2 % Eos % (Auto) 2.1 % Baso % (Auto) 0.5 % Neut # (Auto) 5.14 (1.8-7.7) 10^3/u L Lymph # (Auto) 2.3 (0.8-4.8) 10^3/u L [place] # (Auto) 0.6 (0.2-0.9) 10^3/u L Eos # (Auto) 0.2 (0.0-0.8) 10^3/u L Baso # (Auto) 0.0 (0.0-0.1) 10^3/u L Nucleated RBC % (a uto) 0 % Nucleated RBCs # 0.0 /100WBC Sodium 139 (136-145) mmol/L Potassium 4.0 (3.5-5.1) mmol/L Chloride 100 (98-107) mmol/L Carbon Dioxide 31 H (22-29) mmol/L Anion Gap 12.0 (5-19) BUN 12 (6-20) mg/dL Creatinine 0.6 (0.5-0.9) mg/dL GFR Calculation 115.1 (90-130) mL/min Glucose 353 H (65-115) mg/dL Calculated Osmolal ity 302 H (285-295) mOsm/k g Calcium 9.4 (8.5-10.5) mg/dL Total Bilirubin 0.2 (0.15-1.2) mg/dL AST 17 (0-32) U/L ALT 13 (0-33) U/L Alkaline Phosphata se 87 (35-105) IU/L Total Protein 6.6 (6.6-8.7) g/dL Albumin 3.6 (3.5-5.2) g/dL Globulin 3.0 (1.3-4.6) g/dL Lipase 21 (13-60) U/L HCG, Qual Negative (Negative) Urine Color (Yellow) Urine Appearance (CLEAR) Urine pH (5-7) Ur Specific Gravit y (1.005-1.030) Urine Protein (Negative) Urine Glucose (UA) (Normal) Urine Ketones (Negative) Urine Blood (Negative) Urine Nitrate (Negative) Urine Bilirubin (Negative) Urine Urobilinogen (Negative) mg/dL Ur Leukocyte Denise ase (Negative) Urine RBC (0-2) /hpf Urine WBC (0-5) /hpf Ur Squamous Epith Cells (0-5) /hpf Amorphous Sediment Urine Bacteria (NONE) /hpf 05/06/20 05/06/20 Range/Units 20:30 20:30 WBC (4.0-10.0) 10^3/ uL RBC (4.1-5.3) 10^6/u L Hgb (11.5-15.3) g/dL Hct (37.0-47.0) % MCV (81-99) fL MCH (28.0-34.0) pg MCHC (30.0-36.0) g/dL RDW (12.1-15.1) % Plt Count (130-400) 10^3/c mm MPV (7.4-10.4) fL Neut % (Auto) % Lymph % (Auto) % [place] % (Auto) % Eos % (Auto) % Baso % (Auto) % Neut # (Auto) (1.8-7.7) 10^3/u L Lymph # (Auto) (0.8-4.8) 10^3/u L [place] # (Auto) (0.2-0.9) 10^3/u L Eos # (Auto) (0.0-0.8) 10^3/u L Baso # (Auto) (0.0-0.1) 10^3/u L Nucleated RBC % (a uto) % Nucleated RBCs # /100WBC Sodium (136-145) mmol/L Potassium (3.5-5.1) mmol/L Chloride (98-107) mmol/L Carbon Dioxide (22-29) mmol/L Anion Gap (5-19) BUN (6-20) mg/dL Creatinine (0.5-0.9) mg/dL GFR Calculation (90-130) mL/min Glucose (65-115) mg/dL Calculated Osmolal ity (285-295) mOsm/k g Calcium (8.5-10.5) mg/dL Total Bilirubin (0.15-1.2) mg/dL AST (0-32) U/L ALT (0-33) U/L Alkaline Phosphata se (35-105) IU/L Total Protein (6.6-8.7) g/dL Albumin (3.5-5.2) g/dL Globulin (1.3-4.6) g/dL Lipase (13-60) U/L HCG, Qual Negative (Negative) Urine Color Yellow (Yellow) Urine Appearance Sl cloudy A (CLEAR) Urine pH 7 (5-7) Ur Specific Gravit y 1.010 (1.005-1.030) Urine Protein Neg (Negative) Urine Glucose (UA) 4+ H (Normal) Urine Ketones Negative (Negative) Urine Blood Neg (Negative) Urine Nitrate Negative (Negative) Urine Bilirubin Neg (Negative) Urine Urobilinogen Norm (Negative) mg/dL Ur Leukocyte Denise ase Negative (Negative) Urine RBC 0-4 H (0-2) /hpf Urine WBC 5-10 H (0-5) /hpf Ur Squamous Epith Cells 15-25 H (0-5) /hpf Amorphous Sediment Not Reportable Urine Bacteria 4+ H (NONE) /hpf Discharge Plan Discharge Patient Disposition: Home Clinical Impression: Gastritis Qualifiers: Gastritis type: unspecified gastritis Chronicity: acute Gastritis bleeding: without bleeding Qualified Code(s): K29.00 - Acute gastritis without bleeding UTI (urinary tract infection) Qualifiers: Urinary tract infection type: acute cystitis Hematuria presence: without hematuria Qualified Code(s): N30.00 - Acute cystitis without hematuria Condition: Stable Prescriptions: [place] 5-325 mg tablet 1 tab PO Q6H Qty: 10 RF: 0 Zofran 4 mg tablet 4 mg PO Q6H PRN (Reason: nausea and vomiting) Qty: 10 RF: 0 Macrobid 100 mg capsule 100 mg PO BID 7 Days Qty: 14 RF: 0 Prevacid 30 mg capsule,delayed release(DR/EC) 30 mg PO DAILY Qty: 30 RF: 0 No Action topiramate [Topamax] 100 mg tablet 100 mg PO DAILY Qty: 30 RF: 3 Medrol (Raul) 4 mg tablets,dose pack See Rx Instructions .ROUTE .COMPLEX Qty: 21 RF: 0 insulin lispro [Humalog KwikPen Insulin] 100 unit/mL Insulin Pen See Rx Instructions .ROUTE .COMPLEX RF: 0 Lantus Solostar U-100 Insulin 100 unit/mL (3 mL) Insulin Pen 50 unit SUBCUT BID RF: 0 acetaminophen [Tylenol Extra Strength] 500 mg Tablet 500 - 1,000 mg PO Q6H PRN (Reason: Pain) RF: 0 Discharge Orders: Discharge Order (Routine); Ordered 05/06/20 Ordered By: Jak Larose Referrals: Elizabeth Dougherty FNP [Primary Care Provider] - 4-7 days Discharge Diet: Advance as tolerated and Clear Liquid Discharge Activity: Increase activity as tolerated Patient Instructions: Gastritis (ED), Urinary Tract Infection in Women (ED) Activity Restrictions/Additional Instructions: Return for worsening pain despite treatment, fever greater than 100, vomiting liquids or medications, other concerning symptoms. Coding Level of Care Code ED Head Char Filter Tank Tender for Reji Fwd Exam Comprehensive
[2020-05-06 20:31] VITALS: BP 162/95; PULSE 88; RESP 22; O2SAT 100
--- NOTE | 2020-05-06 20:33 | CTR_ITS ---
PROCEDURE INFORMATION: Exam: CT Abdomen And Pelvis With Contrast Exam date and time: 05/06/2020 8:39 PM Age: 34 years old Clinical indication: Abdominal pain; Generalized; Prior surgery; Surgery type: Cholecystectomy; Additional info: Epigastric pain TECHNIQUE: Imaging protocol: Computed tomography of the abdomen and pelvis with intravenous contrast. Radiation optimization: All CT scans at this facility use at least one of these dose optimization techniques: automated exposure control; mA and/or kV adjustment per patient size (includes targeted exams where dose is matched to clinical indication); or iterative reconstruction. Contrast material: OMNI 300; Contrast volume: 95 ml; Contrast route: INTRAVENOUS (IV); COMPARISON: CT angio chest w abd pel w con 01/30/2020 4:03 PM RADIATION DOSE METRICS: Total DLP (mGy-cm): 626.19 FINDINGS: Lungs: A calcified granuloma is present in the right lower lobe. Right basilar atelectasis is appreciated. Mild scarring is seen in the left lung base. Heart: The heart is normal in size. Liver: Normal. No mass. Gallbladder and bile ducts: The gallbladder has been removed. No biliary ductal dilatation. Pancreas: Normal. No ductal dilation. Spleen: Normal. No splenomegaly. Adrenal glands: Normal. No mass. Kidneys and ureters: Scarring is again seen in both kidneys. No hydronephrosis. Stomach and bowel: Unremarkable. No obstruction. No mucosal thickening. Appendix: The appendix is normal. Intraperitoneal space: Unremarkable. No free air. No significant fluid collection. Vasculature: Unremarkable. No abdominal aortic aneurysm. Lymph nodes: Unremarkable. No enlarged lymph nodes. Urinary bladder: Mild urinary bladder wall thickening is appreciated. Reproductive: The uterus and ovaries appear normal. A 2.5 cm right ovarian cyst is present. Bones/joints: Bilateral L5 spondylolysis is appreciated. No acute fracture. Soft tissues: Unremarkable. CT/CT abdomen pelvis w con* [id number] IMPRESSION: Possible mild cystitis, correlate with urinalysis. No acute abnormality is seen in the upper abdomen. Radiation Dose CTDIVOL = (mGy): DLP = 626.19 (mGy-cm)
[2020-05-06] MEDS: lidocaine 2% viscous 15 ML, aluminum-mag hydrox-simethicon 30 ML, sucralfate oral liq 1 GM PO (20:41)
[2020-05-06] MEDS: ondansetron 2 mg/ML SDV 2 mL 4 MG IVP (20:43)
[2020-05-06 20:44] VITALS: RESP 18; O2SAT 99
[2020-05-06] MEDS: HYDROmorphone 1 mg/mL INJ 1 mL IVP ×2 (20:44→22:52)
[2020-05-06 20:49] LABS: HCG Qualitative Urine. Negative (Negative); Protein Urine Neg (Negative); Urine Color Yellow (Yellow); pH Urine 7 (5-7)
[2020-05-06 20:50] LABS: Add Urine Microscopic? YES; Bilirubin Urine Neg (Negative); Blood Urine Neg (Negative); Glucose Urine UA 4+ (Normal); Ketones Urine Negative (Negative); Leukocyte Esterase Urine Negative (Negative); Nitrate Urine Negative (Negative); Urobilinogen Urine Norm (Negative)
[2020-05-06 20:51] LABS: Add Urine Culture? No; Bacteria Urine 4+ /hpf; RBC Urine 0-4 /hpf (0-2); Squamous Epithelial Cell Urine 15-25 /hpf (0-5)
[2020-05-06] MEDS: iohexol 300 mg/mL 100 mL Btl IV (21:16)
[2020-05-06 21:38] LABS: HCG, Serum Qual Negative (Negative)
[2020-05-06 22:29] VITALS: BP 122/80; PULSE 79; RESP 18; O2SAT 94
[2020-05-06] MEDS: ketorolac 30 mg/mL INJ IVP (22:51)
[2020-05-06 22:52] VITALS: RESP 18; O2SAT 97
[2020-05-06 22:58] VITALS: BP 132/97; PULSE 77; RESP 18; O2SAT 96
== END 2020-05-06 23:01 | disposition home or self-care (01) ==
PROVIDERS: Emergency Medicine; Emergency Provider Emergency Medicine; PCP Nurse Practitioner Family
DX: K29.00 Acute gastritis without bleeding (principal); N30.00 Acute cystitis without hematuria; Z79.4 Long term (current) use of insulin; E11.9 Type 2 diabetes mellitus without complications; I10 Essential (primary) hypertension; F17.210 Nicotine dependence, cigarettes, uncomplicated
CPT/HCPCS: 12345; 36415; 74177; 80053; 81001; 81025; 83690; 84703; 85025; 96374; 96375; 96376; 99283; J1170; J1885; J2405; Q9967

== ENCOUNTER 2020-05-09 07:46 | Emergency (ER) | payer MEDICAID, SELFPAY ==
--- NOTE | 2020-05-09 08:03 | ED_ITS ---
HPI - Abdominal Pain General: Chief Complaint: Abdominal Pain Stated Complaint: ABD PAIN Time Seen by Provider: 05/09/20 07:57 History of Present Illness: HPI narrative: Patient is a 34-year-old female comes to the ED with abdominal pain. Patient was seen here for same complaint on May 06. She was diagnosed with UTI and cyst on her ovaries and sent home with a prescription for an antibiotic and Prevacid. Patient has been taking both medications as prescribed. She returns to the ED with increased abdominal pain in the epigastric region that radiates to the left upper quadrant. Pain is rated 9 out of 10. Endorses nausea but denies any emesis. She states she has been on a clear liquid diet since she was discharged from the ED on May 06. Denies fever, chest pain, constipation. Endorses diarrhea. Associated Symptoms: Reports diarrhea and nausea; Denies chills, constipation, dysuria, fever(s), hematochezia, hematuria and vomiting Related Data: Date of Last Menstrual Period: 03/25/20 Review of Systems Const: Denies: fever(s), chills or fatigue Eyes: Denies: change in vision or eye discomfort ENMT: Denies: throat pain, odynophagia, nasal discharge or nasal congestion Card: Denies: chest pain, palpitations, edema, swelling of feet/ankles, dyspnea on exertion or orthopnea Resp: Denies: dyspnea, productive cough or non-productive cough GI: Reports: abdominal pain, nausea and diarrhea; Denies: vomiting, constipation or hematochezia : Denies: flank pain, dysuria or hematuria Musc: Denies: neck pain, back pain or extremity swelling Skin/Breast: Denies: rash or new lesions Neuro: Denies: headache(s), numbness in extremities or weakness in extremities PFS ED PFSH: Medical History Anxiety Chronic headache Diabetes DKA (diabetic ketoacidoses) HTN (hypertension) Hyperglycemia Lymphadenitis Migraine headache Pancreatitis PID (pelvic inflammatory disease) Pleural effusion 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 Pyelonephritis Respiratory failure Sepsis Ureterolithiasis Surgical History History of cholecystectomy History of endoscopy History of lung surgery Social History Smoking and tobacco status: current every day smoker Household members: spouse Housing: House Female Reproductive History: Date of last menstrual period: 03/25/20 Physical Exam Const: COMMON NORMALS: no acute distress, patient oriented x3 and alert GENERAL APPEARANCE: cooperative and comfortable HENMT: COMMON NORMALS: normocephalic HEAD & SCALP: normocephalic MOUTH: Normal oral and palatal mucosa present THROAT: posterior oropharynx normal and uvula midline Neck/C-Spine: COMMON NORMALS: supple GENERAL: Yes normal visual inspection Resp: COMMON NORMALS: normal respiratory effort, No retractions, No use of accessory muscles and clear to auscultation bilaterally AUSCULTATION: clear to auscultation bilaterally Cardio: COMMON NORMALS: regular rate, regular rhythm, S1 normal heart sound present, S2 normal heart sound present, No gallops present (Cardio), No clicks present (Cardio), No murmurs present (Cardio) and Peripheral pulses 2+ throughout RATE: regular rate RHYTHM: regular rhythm HEART SOUNDS: S1 normal heart sound present and S2 normal heart sound present PERIPHERAL PULS ES: Peripheral pulses 2+ throughout GI: COMMON NORMALS: Normal to inspection, nondistended, normoactive bowel sounds present, Soft to palpation and no masses PALPATION: Yes Soft to palpation and Yes Tenderness to palpation present (GI) Details: other (epigastric tenderness-mild) : BLADDER/KIDNEY EXAM: Yes CVA tenderness on the left (mild left side) Extremity: COMMON NORMALS: normal to inspection and no pedal edema Neuro: COMMON NORMALS: patient oriented x3 SENSORIUM/ORIENTATION: Yes alert GAIT: Yes Normal gait present Skin: GENERAL SKIN EXAM: dry skin Course Reevaluation(s): Reevaluation #1: Patient says epigastric pain improved after GI cocktail. Vital Signs: Vital signs: Vital Signs Temperature 97.9 F 05/09/20 08:13 Pulse Rate 73 05/09/20 09:33 Respiratory Rate 18 05/09/20 09:33 Blood Pressure 133/84 05/09/20 09:33 Pulse Oximetry 96 05/09/20 09:33 MDM - Abdominal Pain MDM Narrative: Medical decision making narrative: Patient is a 34-year-old female comes to the ED with abdominal pain. Patient has past medical history of diabetes type 1. She was seen here on May 06 for same complaint and diagnosed with gastritis and UTI and put on Prevacid and Macrobid. Abdominal pain is in the epigastric region and just like previous pain. She just started taking Prevacid within the last 36 hours. Physical exam remarkable for mild e pigastric tenderness. CBC and CMP unremarkable. Patient's glucose was 352 and glucose level was 353 on May 06. Chest x-ray showed no acute findings. Signs of partial left-sided pneumonectomy-chronic. Patient was given IV fluids, Zofran, morphine while here in the ED. GI cocktail given and epigastric pain improved.. Patient discharged with gastritis and told to continue taking the prescribed Prevacid to help with pain. I told patient that it takes a couple days of taking Prevacid for it to start working in reducing the epigastric pain. Continue taking antibiotic as previously prescribed. She was told advance diet as tolerated and she was discharged with a prescription for Zofran. Return to ED precautions given. Follow-up with PCP in 7 to 10 days. Patient understood and agreed with plan. Lab Data: Attestation: I reviewed the patient's lab results. Labs: Lab Results 05/09/20 05/09/20 Range/Units 08:41 08:41 WBC 8.9 (4.0-10.0) 10^3/ uL RBC 4.52 (4.1-5.3) 10^6/u L Hgb 13.2 (11.5-15.3) g/dL Hct 39.4 (37.0-47.0) % MCV 87.2 (81-99) fL MCH 29.2 (28.0-34.0) pg MCHC 33.5 (30.0-36.0) g/dL RDW 12.0 L (12.1-15.1) % Plt Count 274 (130-400) 10^3/c mm MPV 10.5 H (7.4-10.4) fL Neut % (Auto) 72.6 % Lymph % (Auto) 18.7 % [place] % (Auto) 7.1 % Eos % (Auto) 1.0 % Baso % (Auto) 0.4 % Neut # (Auto) 6.47 (1.8-7.7) 10^3/u L Lymph # (Auto) 1.7 (0.8-4.8) 10^3/u L [place] # (Auto) 0.6 (0.2-0.9) 10^3/u L Eos # (Auto) 0.1 (0.0-0.8) 10^3/u L Baso # (Auto) 0.0 (0.0-0.1) 10^3/u L Nucleated RBC % (a uto) 0 % Nucleated RBCs # 0.0 /100WBC Sodium 133 L (136-145) mmol/L Potassium 4.5 (3.5-5.1) mmol/L Chloride 97 L (98-107) mmol/L Carbon Dioxide 27 (22-29) mmol/L Anion Gap 13.5 (5-19) BUN 10 (6-20) mg/dL Creatinine 0.7 (0.5-0.9) mg/dL GFR Calculation 96.4 (90-130) mL/min Glucose 352 H (65-115) mg/dL Calculated Osmolal ity 289 (285-295) mOsm/k g Calcium 8.4 L (8.5-10.5) mg/dL Total Bilirubin 0.4 (0.15-1.2) mg/dL AST 19 (0-32) U/L ALT 18 (0-33) U/L Alkaline Phosphata se 85 (35-105) IU/L Total Protein 6.8 (6.6-8.7) g/dL Albumin 3.7 (3.5-5.2) g/dL Globulin 3.1 (1.3-4.6) g/dL Lipase 15 (13-60) U/L Imaging Data ^: CXR: Attestation: I personally reviewed and interpreted this imaging study as follows: Radiologist's impression: [address] [address] XRay Report Signed Patient: Donita Aguilar Unit #: [id number] : 1985 Age/Sex: 34 / F ADM Date: 05/09/20 Loc: ER Room/Bed: Attending Dr: Ordering Provider/Ordering MD: Les Guy Date of Service: 05/09/20 Procedure(s): XR chest 1V portable [id number] Accession Number(s): [id number] Report Number: [id number] WS: [id number] Exam: XR chest 1V portable [id number] Date/Time of Exam: 05/09/2020 8:15 AM Reason For Exam: epigastric pain Comparison 01/30/2020. Signs of partial left pneumonectomy. The lungs are otherwise fully inflated. No infiltrates or pleural effusions. Chronic changes in the left lower lung zone. Heart size is normal. The mediastinum is not widened. Signs of left thoracotomy. XR/XR chest 1V portable [id number] IMPRESSION: 1. Signs of partial left-sided pneumonectomy. 2. No acute process identified. Dictated By: Jabier Brunson DO Signed By: Jabier Brunson DO Signed Date/Time: 07/09/19857 DD/ 4 Discharge Plan Discharge Patient Disposition: Home Clinical Impression: Gastritis Qualifiers: Gastritis type: unspecified gastritis Chronicity: acute Gastritis bleeding: without bleeding Qualified Code(s): K29.00 - Acute gastritis without bleeding Condition: Stable Prescriptions: New Zofran 4 mg tablet 4 mg PO Q8H Qty: 15 RF: 0 No Action topiramate [Topamax] 100 mg tablet 100 mg PO DAILY Qty: 30 RF: 3 Medrol (Raul) 4 mg tablets,dose pack See Rx Instructions .ROUTE .COMPLEX Qty: 21 RF: 0 [place] 5-325 mg tablet 1 tab PO Q6H Qty: 10 RF: 0 Zofran 4 mg tablet 4 mg PO Q6H PRN (Reason: nausea and vomiting) Qty: 10 RF: 0 Macrobid 100 mg capsule 100 mg PO BID 7 Days Qty: 14 RF: 0 Prevacid 30 mg capsule,delayed release(DR/EC) 30 mg PO DAILY Qty: 30 RF: 0 insulin lispro [Humalog KwikPen Insulin] 100 unit/mL Insulin Pen See Rx Instructions .ROUTE .COMPLEX RF: 0 Lantus Solostar U-100 Insulin 100 unit/mL (3 mL) Insulin Pen 50 unit SUBCUT BID RF: 0 acetaminophen [Tylenol Extra Strength] 500 mg Tablet 500 - 1,000 mg PO Q6H PRN (Reason: Pain) RF: 0 Discharge Orders: Discharge Order (Routine); Ordered 05/09/20 Ordered By: Les Guy Referrals: Elizabeth Dougherty FNP [Primary Care Provider] - Discharge Diet: Advance as tolerated Discharge Activity: Increase activity as tolerated Patient Instructions: Gastroesophageal Reflux Disease (ED) Activity Restrictions/Additional Instructions: Follow-up with medical provider as directed in 7-10 days. Continue taking all medications as prescribed. Advance diet as tolerated. Return to the ER or your medical provider if condition worsens. Please read and understand discharge instructions. If any questions, please ask. Coding Level of Care Code ED Machine Fitter for Chg Fwd Exam Comprehensive
--- NOTE | 2020-05-09 08:12 | XR_ITS ---
WS: [id number] Exam: XR chest 1V portable [id number] Date/Time of Exam: 05/09/2020 8:15 AM Reason For Exam: epigastric pain Comparison 01/30/2020. Signs of partial left pneumonectomy. The lungs are otherwise fully inflated. No infiltrates or pleura l effusions. Chronic changes in the left lower lung zone. Heart size is normal. The mediastinum is no t widened. Signs of left thoracotomy. XR/XR chest 1V portable [id number] IMPRESSION: 1. Signs of partial left-sided pneumonectomy. 2. No acute process identified.
[2020-05-09 08:13] VITALS: BP 127/76; PULSE 86; RESP 18; TEMP 36.6; O2SAT 98; BMI 28.5
[2020-05-09 08:48] VITALS: BP 108/74; PULSE 86; RESP 18; O2SAT 96
[2020-05-09 08:49] VITALS: O2SAT 96
[2020-05-09 08:53] VITALS: RESP 18; O2SAT 96
[2020-05-09] MEDS: ondansetron 2 mg/ML SDV 2 mL 4 MG IVP (08:53)
[2020-05-09] MEDS: morphine 4 mg/mL SDV 1 mL IVP (08:53)
[2020-05-09] MEDS: sodium chloride 0.9% 1,000 ML 999 ML IV (08:54)
[2020-05-09] MEDS: lidocaine 2% viscous 15 ML, aluminum-mag hydrox-simethicon 30 ML, sucralfate oral liq 1 GM PO (08:54)
[2020-05-09 08:55] LABS: Basophils % 0.4 %; Eosinophils # 0.1 10^3/uL (0.0-0.8); Hematocrit 39.4 % (37.0-47.0); Hemoglobin 13.2 g/dL (11.5-15.3); Lymphocytes # 1.7 10^3/uL (0.8-4.8); Lymphocytes % 18.7 %; Mean Corpuscular HGB Conc 33.5 g/dL (30.0-36.0); Mean Corpuscular Hemoglobin 29.2 pg (28.0-34.0); Mean Corpuscular Volume 87.2 fL (81-99); Mean Platelet Volume 10.5 fL (7.4-10.4); Monocytes # 0.6 10^3/uL (0.2-0.9); Monocytes % 7.1 %; Neutrophils # 6.47 10^3/uL (1.8-7.7); Neutrophils % 72.6 %; Nucleated Red Blood Cells % 0 %; Platelet Count 274 10^3/cmm (130-400); Red Blood Count 4.52 10^6/uL (4.1-5.3); White Blood Count 8.9 10^3/uL (4.0-10.0)
[2020-05-09 09:11] LABS: Alanine Aminotransferase 18 U/L (0-33); Albumin Level 3.7 g/dL (3.5-5.2); Alkaline Phosphatase 85 IU/L (35-105); Anion Gap 13.5 (5-19); Aspartate Amino Transferase 19 U/L (0-32); Blood Urea Nitrogen 10 mg/dL (6-20); Calcium 8.4 mg/dL (8.5-10.5); Carbon Dioxide 27 mmol/L (22-29); Chloride 97 mmol/L (98-107); Globulin 3.1 g/dL (1.3-4.6); Glomerular Filtration Rate 96.4 mL/min (90-130); Glucose 352 mg/dL (65-115); Lipase 15 U/L (13-60); Osmolality Calculated 289 mOsm/kg (285-295); Potassium 4.5 mmol/L (3.5-5.1); Sodium 133 mmol/L (136-145); Total Bilirubin 0.4 mg/dL (0.15-1.2); Total Protein 6.8 g/dL (6.6-8.7)
[2020-05-09 09:33] VITALS: BP 133/84; PULSE 73; RESP 18; O2SAT 96
== END 2020-05-09 09:35 | disposition home or self-care (01) ==
PROVIDERS: Emergency Provider Physician Assistant; PCP Nurse Practitioner Family
DX: K29.00 Acute gastritis without bleeding (principal); Z79.4 Long term (current) use of insulin; E11.9 Type 2 diabetes mellitus without complications; I10 Essential (primary) hypertension; F17.210 Nicotine dependence, cigarettes, uncomplicated
CPT/HCPCS: 12345; 71045; 80053; 83690; 85025; 96361; 96374; 96375; 99282; 99283; J2270; J2405; J7030

== ENCOUNTER 2020-05-15 15:56 | Emergency (ER) | payer MEDICAID, SELFPAY ==
[2020-05-15 15:58] VITALS: BP 112/71; PULSE 95; RESP 18; TEMP 37.1; O2SAT 98; BMI 27.5
--- NOTE | 2020-05-15 16:05 | W.ED.ABDPA2 ---
HPI - Abdominal Pain General: Chief Complaint: Abdominal Pain Stated Complaint: PELVIC/ABD PAIN Time Seen by Provider: 05/15/20 16:04 History of Present Illness: HPI narrative: Patient is a 34-year-old female comes to the ED with abdominal pain, nausea and diarrhea. Patient seen here in the ED for same complaint on 06 May and 09 May. She is was diagnosed with gastritis and has been taking Prevacid double symptoms. Pain located in the left upper quadrant. Rates it 9 out of 10. Patient is a type I diabetic and says that she has had trouble controlling her blood sugars. She says in the past week she has probably been running around the 300 range for blood sugars. She takes Humalog and Lantus to help control blood sugars. MD elicited complaint: abdominal pain Pertinent past history: gastritis Onset (ago): day(s) (Started 9 days ago.) Pain Consistency: constant Location: LUQ Pain scale (0-10): 9 Quality: aching Radiation: none Migration to: no migration Exacerbating factors: eating Relieving factors: nothing Associated Symptoms: Reports diarrhea, dyspepsia, heartburn, nausea and poor appetite; Denies chills, constipation, dysuria, fever(s), hematochezia, hematuria and vomiting Related Data: Date of Last Menstrual Period: 03/25/20 Review of Systems Const: Denies: fever(s), chills or fatigue Eyes: Denies: change in vision or eye discomfort ENMT: Denies: throat pain, odynophagia, nasal discharge or nasal congestion Card: Denies: chest pain, palpitations, edema, swelling of feet/ankles, dyspnea on exertion or orthopnea Resp: Denies: dyspnea, productive cough or non-productive cough GI: Reports: abdominal pain, nausea, heartburn and diarrhea; Denies: vomiting, constipation or hematochezia : Denies: flank pain, dysuria or hematuria Musc: Denies: neck pain, back pain or extremity swelling Skin/Breast: Denies: rash or new lesions Neuro: Denies: headache(s), numbness in extremities or weakness in extremities PFS ED PFSH: Medical History Anxiety Chronic headache Diabetes DKA (diabetic ketoacidoses) HTN (hypertension) Hyperglycemia Lymphadenitis Migraine headache Pancreatitis PID (pelvic inflammatory disease) Pleural effusion 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 Pyelonephritis Respiratory failure Sepsis Ureterolithiasis Surgical History History of cholecystectomy History of endoscopy History of lung surgery Social History Smoking and tobacco status: current every day smoker Household members: spouse Housing: House Female Reproductive History: Date of last menstrual period: 03/25/20 Physical Exam Const: COMMON NORMALS: no acute distress, patient oriented x3, healthy appearing and alert GENERAL APPEARANCE: cooperative and comfortable HENMT: COMMON NORMALS: normocephalic HEAD & SCALP: normocephalic MOUTH: Normal oral and palatal mucosa present THROAT: posterior oropharynx normal and uvula midline Eye: COMMON NORMALS: Equal, round and reactive pupils present and conjunctivae normal CONJUNCTIVA: Yes conjunctivae normal PUPIL: Yes Equal, round and reactive pupils present Neck/C-Spine: COMMON NORMALS: supple GENERAL: Yes normal visual inspection Resp: COMMON NORMALS: normal respiratory effort, No retractions, No use of accessory muscles and clear to auscultation bilaterally AUSCULTATION: clear to auscultation bilaterally Cardio: COMMON NORMALS: regular rate, regular rhythm, S1 normal heart sound present, S2 normal heart sound present, No gallops present (Cardio), No clicks present (Cardio), No murmurs present (Cardio) and Peripheral pulses 2+ throughout RATE: regular rate RHYTHM: regular rhythm HEART SOUNDS: S1 normal heart sound present and S2 normal heart sound present PERIPHERAL PULSES: Peripheral pulses 2+ throughout GI: COMMON NORMALS: Normal to inspection, nondistended, normoactive bowel sounds present, Soft to palpation and no masses PALPATION: Yes Soft to palpation and Yes Tenderness to palpation present (GI) Details: LUQ (mild) : COMMON NORMALS: Yes no CVA tenderness BLADDER/KIDNEY EXAM: Yes no CVA tenderness Back/Pelvis: COMMON NORMALS: no CVA tenderness Extremity: COMMON NORMALS: normal to inspection and no pedal edema Neuro: COMMON NORMALS: patient oriented x3 SENSORIUM/ORIENTATION: Yes alert GAIT: Yes Normal gait present Skin: GENERAL SKIN EXAM: dry skin Course Vital Signs: Vital signs: Vital Signs Temperature 98.7 F 05/15/20 21:21 Pulse Rate 76 05/15/20 21:21 Respiratory Rate 17 11/22/20 21:21 Blood Pressure 106/72 05/15/20 21:21 Pulse Oximetry 98 05/15/20 21:21 MDM - Abdominal Pain MDM Narrative: Medical decision making narrative: Patient is a 34-year-old female comes to the ED with left upper quadrant abdominal pain. She was seen here for same complaint on May 06 and . Abdominal pain has remained unchanged. Patient has some mild tenderness to palpation of the left upper quadrant of the abdomen. No other remarkable exam findings. Patient's glucose level was 493, rest of CBC and CMP were unremarkable. Lipase 27, urinalysis showed no UTI, H. pylori negative. Arterial blood glass 7.4 pH. Ketones negative and serum. Patient was given 2 L of IV fluids, morphine and Zofran. Her abdominal pain did improve. She was also given 10 units of insulin via IV. Patient's glucose level went down to 282. Patient diagnosed with hyperglycemia and abdominal pain left upper quadrant. Patient was discharged and told to continue monitoring her blood glucose levels and to continue taking her prescribed insulin dose. She was told to follow-up with PCP in the next 7 to 10 days for reevaluation. Return to ED precautions given. Patient understood agree with plan. Lab Data: Attestation: I reviewed the patient's lab results. Labs: Lab Results 05/15/20 05/15/20 05/15/20 Range/Units 16:55 16:55 16:55 WBC 9.2 (4.0-10.0) 10^3/ uL RBC 5.39 H (4.1-5.3) 10^6/u L Hgb 15.5 H (11.5-15.3) g/dL Hct 45.6 (37.0-47.0) % MCV 84.6 (81-99) fL MCH 28.8 (28.0-34.0) pg MCHC 34.0 (30.0-36.0) g/dL RDW 11.9 L (12.1-15.1) % Plt Count 269 (130-400) 10^3/c mm MPV 11.4 H (7.4-10.4) fL Neut % (Auto) 67.1 % Lymph % (Auto) 23.6 % [place] % (Auto) 7.4 % Eos % (Auto) 1.2 % Baso % (Auto) 0.4 % Neut # (Auto) 6.17 (1.8-7.7) 10^3/u L Lymph # (Auto) 2.2 (0.8-4.8) 10^3/u L [place] # (Auto) 0.7 (0.2-0.9) 10^3/u L Eos # (Auto) 0.1 (0.0-0.8) 10^3/u L Baso # (Auto) 0.0 (0.0-0.1) 10^3/u L Nucleated RBC % (a uto) 0 % Nucleated RBCs # 0.0 /100WBC Specimen Type Sample Site ABG pH (7.35-7.45) ABG pCO2 (35-45) mmHg ABG pO2 (80.0-100.0) mmH g ABG HCO3 (22-26) mmol/L ABG O2 Saturation ABG Base Excess (-2.0-2.0) mmol/ L Braulio Test A-a O2 Gradient (5-10) mmHg Hematocrit (37-47) % Hgb O2 Saturation (95-100) % Carboxyhemoglobin (0.4-20.1) %THgb Methemoglobin (0.4-1.5) % Total Hemoglobin (12-16) g/dL Ionized Calcium (1.1-1.4) mmol/L O2 Delivery Device FiO2 % Humanities Coordinator ID Sodium 129 L (136-145) mmol/L Potassium 4.3 (3.5-5.1) mmol/L Chloride 91 L (98-107) mmol/L Carbon Dioxide 26 (22-29) mmol/L Anion Gap 16.3 (5-19) BUN 20 (6-20) mg/dL Creatinine 0.9 (0.5-0.9) mg/dL GFR Calculation 72.1 L (90-130) mL/min Glucose 491 H (65-115) mg/dL POC Glucose (70-110) mg/dL Calculated Osmolal ity 292 (285-295) mOsm/k g Calcium 9.3 (8.5-10.5) mg/dL Total Bilirubin 0.4 (0.15-1.2) mg/dL AST 15 (0-32) U/L ALT 16 (0-33) U/L Alkaline Phosphata se 100 (35-105) IU/L Total Protein 7.8 (6.6-8.7) g/dL Albumin 4.1 (3.5-5.2) g/dL Globulin 3.7 (1.3-4.6) g/dL Lipase 27 (13-60) U/L HCG, Qual Negative (Negative) Urine Color (Yellow) Urine Appearance (CLEAR) Urine pH (5-7) Ur Specific Gravit y (1.005-1.030) Urine Protein (Negative) Urine Glucose (UA) (Normal) Urine Ketones (Negative) Urine Blood (Negative) Urine Nitrate (Negative) Urine Bilirubin (Negative) Urine Urobilinogen (Negative) mg/dL Ur Leukocyte Denise ase (Negative) Urine RBC (0-2) /hpf Urine WBC (0-5) /hpf Ur Squamous Epith Cells (0-5) /hpf Amorphous Sediment Urine Bacteria (NONE) /hpf Serum Ketones (Negative) H. pylori IgG Anti body (Negative) 05/15/20 05/15/20 05/15/20 Range/Units 16:55 16:55 18:00 WBC (4.0-10.0) 10^3/ uL RBC (4.1-5.3) 10^6/u L Hgb (11.5-15.3) g/dL Hct (37.0-47.0) % MCV (81-99) fL MCH (28.0-34.0) pg MCHC (30.0-36.0) g/dL RDW (12.1-15.1) % Plt Count (130-400) 10^3/c mm MPV (7.4-10.4) fL Neut % (Auto) % Lymph % (Auto) % [place] % (Auto) % Eos % (Auto) % Baso % (Auto) % Neut # (Auto) (1.8-7.7) 10^3/u L Lymph # (Auto) (0.8-4.8) 10^3/u L [place] # (Auto) (0.2-0.9) 10^3/u L Eos # (Auto) (0.0-0.8) 10^3/u L Baso # (Auto) (0.0-0.1) 10^3/u L Nucleated RBC % (a uto) % Nucleated RBCs # /100WBC Specimen Type Sample Site ABG pH (7.35-7.45) ABG pCO2 (35-45) mmHg ABG pO2 (80.0-100.0) mmH g ABG HCO3 (22-26) mmol/L ABG O2 Saturation ABG Base Excess (-2.0-2.0) mmol/ L Braulio Test A-a O2 Gradient (5-10) mmHg Hematocrit (37-47) % Hgb O2 Saturation (95-100) % Carboxyhemoglobin (0.4-20.1) %THgb Methemoglobin (0.4-1.5) % Total Hemoglobin (12-16) g/dL Ionized Calcium (1.1-1.4) mmol/L O2 Delivery Device FiO2 % Humanities Coordinator ID Sodium (136-145) mmol/L Potassium (3.5-5.1) mmol/L Chloride (98-107) mmol/L Carbon Dioxide (22-29) mmol/L Anion Gap (5-19) BUN (6-20) mg/dL Creatinine (0.5-0.9) mg/dL GFR Calculation (90-130) mL/min Glucose (65-115) mg/dL POC Glucose (70-110) mg/dL Calculated Osmolal ity (285-295) mOsm/k g Calcium (8.5-10.5) mg/dL Total Bilirubin (0.15-1.2) mg/dL AST (0-32) U/L ALT (0-33) U/L Alkaline Phosphata se (35-105) IU/L Total Protein (6.6-8.7) g/dL Albumin (3.5-5.2) g/dL Globulin (1.3-4.6) g/dL Lipase (13-60) U/L HCG, Qual (Negative) Urine Color Yellow (Yellow) Urine Appearance Clear (CLEAR) Urine pH 5.0 (5-7) Ur Specific Gravit y 1.010 (1.005-1.030) Urine Protein Neg (Negative) Urine Glucose (UA) 4+ H (Normal) Urine Ketones 1+ H (Negative) Urine Blood Neg (Negative) Urine Nitrate Negative (Negative) Urine Bilirubin Neg (Negative) Urine Urobilinogen Norm (Negative) mg/dL Ur Leukocyte Denise ase Negative (Negative) Urine RBC None (0-2) /hpf Urine WBC None (0-5) /hpf Ur Squamous Epith Cells 10-15 H (0-5) /hpf Amorphous Sediment Not Reportable Urine Bacteria Trace (NONE) /hpf Serum Ketones Negative (Negative) H. pylori IgG Anti body Negative (Negative) 05/15/20 05/15/20 Range/Units 19:07 20:26 WBC (4.0-10.0) 10^3/ uL RBC (4.1-5.3) 10^6/u L Hgb (11.5-15.3) g/dL Hct (37.0-47.0) % MCV (81-99) fL MCH (28.0-34.0) pg MCHC (30.0-36.0) g/dL RDW (12.1-15.1) % Plt Count (130-400) 10^3/c mm MPV (7.4-10.4) fL Neut % (Auto) % Lymph % (Auto) % [place] % (Auto) % Eos % (Auto) % Baso % (Auto) % Neut # (Auto) (1.8-7.7) 10^3/u L Lymph # (Auto) (0.8-4.8) 10^3/u L [place] # (Auto) (0.2-0.9) 10^3/u L Eos # (Auto) (0.0-0.8) 10^3/u L Baso # (Auto) (0.0-0.1) 10^3/u L Nucleated RBC % (a uto) % Nucleated RBCs # /100WBC Specimen Type Arterial Sample Site Radial, right ABG pH 7.40 (7.35-7.45) ABG pCO2 38.4 (35-45) mmHg ABG pO2 82.4 (80.0-100.0) mmH g ABG HCO3 23.5 (22-26) mmol/L ABG O2 Saturation 98.1 ABG Base Excess -1.2 (-2.0-2.0) mmol/ L Braulio Test Pos A-a O2 Gradient 2.7 L (5-10) mmHg Hematocrit 41.4 (37-47) % Hgb O2 Saturation 95.5 (95-100) % Carboxyhemoglobin 1.9 (0.4-20.1) %THgb Methemoglobin 0.8 (0.4-1.5) % Total Hemoglobin 13.5 (12-16) g/dL Ionized Calcium 1.1 (1.1-1.4) mmol/L O2 Delivery Device Room air FiO2 21.0 % Humanities Coordinator ID glc Sodium 135.0 (136-145) mmol/L Potassium 3.6 (3.5-5.1) mmol/L Chloride (98-107) mmol/L Carbon Dioxide (22-29) mmol/L Anion Gap (5-19) BUN (6-20) mg/dL Creatinine (0.5-0.9) mg/dL GFR Calculation (90-130) mL/min Glucose 473.0 H (65-115) mg/dL POC Glucose 282 (70-110) mg/dL Calculated Osmolal ity (285-295) mOsm/k g Calcium (8.5-10.5) mg/dL Total Bilirubin (0.15-1.2) mg/dL AST (0-32) U/L ALT (0-33) U/L Alkaline Phosphata se (35-105) IU/L Total Protein (6.6-8.7) g/dL Albumin (3.5-5.2) g/dL Globulin (1.3-4.6) g/dL Lipase (13-60) U/L HCG, Qual (Negative) Urine Color (Yellow) Urine Appearance (CLEAR) Urine pH (5-7) Ur Specific Gravit y (1.005-1.030) Urine Protein (Negative) Urine Glucose (UA) (Normal) Urine Ketones (Negative) Urine Blood (Negative) Urine Nitrate (Negative) Urine Bilirubin (Negative) Urine Urobilinogen (Negative) mg/dL Ur Leukocyte Denise ase (Negative) Urine RBC (0-2) /hpf Urine WBC (0-5) /hpf Ur Squamous Epith Cells (0-5) /hpf Amorphous Sediment Urine Bacteria (NONE) /hpf Serum Ketones (Negative) H. pylori IgG Anti body (Negative) Discharge Plan Discharge Patient Disposition: Home Clinical Impression: Hyperglycemia Abdominal pain Qualifiers: Abdominal location: left upper quadrant Qualified Code(s): R10.12 - Left upper quadrant pain Condition: Stable Prescriptions: No Action topiramate [Topamax] 100 mg tablet 100 mg PO DAILY Qty: 30 RF: 3 Medrol (Raul) 4 mg tablets,dose pack See Rx Instructions .ROUTE .COMPLEX Qty: 21 RF: 0 Clover 5-325 mg tablet 1 tab PO Q6H Qty: 10 RF: 0 Zofran 4 mg tablet 4 mg PO Q6H PRN (Reason: nausea and vomiting) Qty: 10 RF: 0 Prevacid 30 mg capsule,delayed release(DR/EC) 30 mg PO DAILY Qty: 30 RF: 0 Zofran 4 mg tablet 4 mg PO Q8H Qty: 15 RF: 0 insulin lispro [Humalog KwikPen Insulin] 100 unit/mL Insulin Pen See Rx Instructions .ROUTE .COMPLEX RF: 0 Lantus Solostar U-100 Insulin 100 unit/mL (3 mL) Insulin Pen 50 unit SUBCUT BID RF: 0 acetaminophen [Tylenol Extra Strength] 500 mg Tablet 500 - 1,000 mg PO Q6H PRN (Reason: Pain) RF: 0 Discharge Orders: Discharge Order (Routine); Ordered 05/15/20 Ordered By: Les Guy Referrals: Elizabeth Dougherty FNP [Primary Care Provider] - Discharge Diet: Advance as tolerated Discharge Activity: Increase activity as tolerated Patient Instructions: Abdominal Pain (ED), Diabetic Hyperglycemia (ED) Activity Restrictions/Additional Instructions: Follow-up with PCP in the next 7 to 10 days for reevaluation. Continue taking Zofran as needed for nausea and advance diet as tolerated. Continue taking all previously prescribed home medications. Take medications as prescribed. Continue monitoring blood sugars and administering insulin as previously directed. Return to the ER or your medical provider if condition worsens. Please read and understand discharge instructions. If any questions, please ask. Coding Level of Care Code ED Reinforced Concrete Inspector for Reji Fwd Exam Comprehensive
[2020-05-15] MEDS: ondansetron 2 mg/ML SDV 2 mL 4 MG IVP (16:55)
[2020-05-15] MEDS: sodium chloride 0.9% 1,000 ML 999 ML IV ×2 (16:59→19:01)
[2020-05-15 17:01] VITALS: RESP 18; O2SAT 98
[2020-05-15] MEDS: morphine 4 mg/mL SDV 1 mL IVP ×2 (17:01→19:01)
[2020-05-15 17:28] LABS: Basophils % 0.4 %; Eosinophils # 0.1 10^3/uL (0.0-0.8); Eosinophils % 1.2 %; Hematocrit 45.6 % (37.0-47.0); Hemoglobin 15.5 g/dL (11.5-15.3); Lymphocytes # 2.2 10^3/uL (0.8-4.8); Lymphocytes % 23.6 %; Mean Corpuscular Hemoglobin 28.8 pg (28.0-34.0); Mean Corpuscular Volume 84.6 fL (81-99); Mean Platelet Volume 11.4 fL (7.4-10.4); Monocytes # 0.7 10^3/uL (0.2-0.9); Monocytes % 7.4 %; Neutrophils # 6.17 10^3/uL (1.8-7.7); Neutrophils % 67.1 %; Nucleated Red Blood Cells % 0 %; Platelet Count 269 10^3/cmm (130-400); Red Blood Count 5.39 10^6/uL (4.1-5.3); Red Cell Distribution Width 11.9 % (12.1-15.1); White Blood Count 9.2 10^3/uL (4.0-10.0)
[2020-05-15 17:53] LABS: HCG, Serum Qual Negative (Negative)
[2020-05-15 17:55] LABS: Alanine Aminotransferase 16 U/L (0-33); Albumin Level 4.1 g/dL (3.5-5.2); Alkaline Phosphatase 100 IU/L (35-105); Anion Gap 16.3 (5-19); Aspartate Amino Transferase 15 U/L (0-32); Blood Urea Nitrogen 20 mg/dL (6-20); Calcium 9.3 mg/dL (8.5-10.5); Carbon Dioxide 26 mmol/L (22-29); Chloride 91 mmol/L (98-107); Globulin 3.7 g/dL (1.3-4.6); Glomerular Filtration Rate 72.1 mL/min (90-130); Glucose 491 mg/dL (65-115); Lipase 27 U/L (13-60); Osmolality Calculated 292 mOsm/kg (285-295); Potassium 4.3 mmol/L (3.5-5.1); Sodium 129 mmol/L (136-145); Total Bilirubin 0.4 mg/dL (0.15-1.2); Total Protein 7.8 g/dL (6.6-8.7)
[2020-05-15 18:41] LABS: H. Pylori IgG Antibody Negative (Negative)
[2020-05-15] MEDS: insulin regular-human 100 units/1 mL 10 UNIT IVP (18:57)
[2020-05-15 18:59] LABS: Bilirubin Urine Neg (Negative); Blood Urine Neg (Negative); Glucose Urine UA 4+ (Normal); Ketones Urine 1+ (Negative); Leukocyte Esterase Urine Negative (Negative); Nitrate Urine Negative (Negative); Protein Urine Neg (Negative); Urine Appearance Clear (CLEAR); Urine Color Yellow (Yellow); Urobilinogen Urine Norm (Negative)
[2020-05-15 19:01] VITALS: RESP 18; O2SAT 99
[2020-05-15 19:08] VITALS: BP 116/68; PULSE 84; RESP 18; O2SAT 98
[2020-05-15 19:15] LABS: ABG PCO2 38.4 mmHg (35-45); Alveolar-Arterial Oxygen Gradi 2.7 mmHg (5-10); Arterial Blood Gas Hematocrit 41.4 % (37-47); Base Excess ABG -1.2 mmol/L (-2.0-2.0); Blood Gas Allen Test Pos; Blood Gas Operator Identificat glc; Blood Gas Sample Site Radial, right; Blood Gas Sample Type Arterial; Carboxyhemoglobin 1.9 %THgb (0.4-20.1); HCO3 ABG 23.5 mmol/L (22-26); HGB O2 Sat 95.5 % (95-100); Ionized Calcium Level - ABG 1.1 mmol/L (1.1-1.4); Methemoglobin 0.8 % (0.4-1.5); Oxygen Saturation ABG 98.1; PO2 ABG 82.4 mmHg (80.0-100.0); Potassium Level - ABG 3.6 mmol/L (3.5-5.0); Total Hemoglobin 13.5 g/dL (12-16)
[2020-05-15 19:18] LABS: Add Urine Culture? No; Bacteria Urine TRACE /hpf
[2020-05-15 19:21] LABS: Oxygen Device ROOM AIR
[2020-05-15 19:49] LABS: Ketone (Acetest) Serum Negative (Negative)
[2020-05-15 19:56] VITALS: BP 99/60; PULSE 78; RESP 16; O2SAT 97
[2020-05-15 20:28] LABS: Glucose Point of Care 282 mg/dL (70-110)
[2020-05-15 21:21] VITALS: BP 106/72; PULSE 76; RESP 17; TEMP 37.1; O2SAT 98
== END 2020-05-15 21:21 | disposition home or self-care (01) ==
PROVIDERS: Emergency Provider Physician Assistant; PCP Nurse Practitioner Family
DX: R10.12 Left upper quadrant pain (principal); E11.65 Type 2 diabetes mellitus with hyperglycemia; Z79.4 Long term (current) use of insulin; I10 Essential (primary) hypertension; F17.210 Nicotine dependence, cigarettes, uncomplicated
CPT/HCPCS: 12345; 36416; 36600; 80051; 80053; 81001; 82009; 82330; 82805; 82962; 83605; 83690; 84703; 85025; 86677; 87040; 96361; 96374; 96375; 99283; J1815; J2270; J2405; J7030

== ENCOUNTER 2020-05-18 14:28 | Outpatient (CLI) | payer MEDICAID, SELFPAY ==
[2020-05-18 15:14] LABS: Amylase 34 U/L (28-100); Lipase 20 U/L (13-60)
== END 2020-05-18 14:29 | disposition home or self-care (01) ==
PROVIDERS: PCP Nurse Practitioner Family; Visit Provider Nurse Practitioner Family
DX: R10.12 Left upper quadrant pain (principal)
CPT/HCPCS: 82150; 83690

== ENCOUNTER 2020-05-23 10:28 | Emergency (ER) | payer MEDICAID, SELFPAY ==
[2020-05-23 10:42] VITALS: BP 97/78; PULSE 98; RESP 20; TEMP 35.9; O2SAT 97; BMI 25.7
--- NOTE | 2020-05-23 11:39 | CT_ITS ---
WS: [id number] CT ABDOMEN PELVIS TECHNIQUE: Contrast-enhanced CT of the abdomen and pelvis with coronal and sagittal reformatted image s. CLINICAL INFORMATION: abd pain COMPARISON: CT May 06, 2020 DLP: 442.[address] scans at [facility] use at least one of these dose optimization techniques: automat ed exposure control; mA and/or kV adjustment per patient size (includes targeted exams where dose is matched to clinical indication); or iterative reconstruction. FINDINGS: Mild diffuse fatty infiltration the liver. Normal portal vein and splenic vein. Cholecystectomy clips . Adrenal glands are normal. Normal spleen. Fatty atrophy of the pancreas. Emphysematous changes in t he lung bases. Partially calcified granuloma right lower lobe is unchanged. Tiny 3 mm nodule right mi ddle lobe is unchanged. Adrenal glands are normal. Normal renal parenchymal enhancement. No hydronephrosis. Bilateral renal c ortical atrophy. Cortical scarring both kidneys. Normal caliber abdominal aorta. No periaortic or retroperitoneal lymphadenopathy. Low-attenuation wit hin right ovarian cystic lesion measuring 4.7 x 4.9 CM. Normal appendix in the right lower quadrant. No evidence of small or large bowel obstruction. Diffuse bladder wall thickening can be seen with chr onic cystitis. Grade 1 anterolisthesis L5 on S1 with chronic bilateral pars defects. CT/CT abdomen pelvis w con* [id number] IMPRESSION: 1. Diffuse bladder wall thickening similar to the prior examination can be see n with chronic cystitis. 2. No hydronephrosis in either kidney. Bilateral renal cortical scarring likel y due to prior pyelonephritis. 3. Mild diffuse fatty infiltration liver. Prior cholecystectomy. 4. Right ovarian cyst increased in size since the prior examination today chinedu uring 4.9 x 4.7 CM. This can be followed up with ultrasound. 5. No free fluid in the pelvis.
--- NOTE | 2020-05-23 11:41 | ED_ITS ---
HPI - Abdominal Pain General: Chief Complaint: Abdominal Pain Stated Complaint: ABD PAIN Time Seen by Provider: 05/23/20 10:43 History of Present Illness: HPI narrative: 34-year-old female with a history of diabetes mellitus and known history of diabetic gastroparesis returns to the emergency room third time in the last approximately 2 months. Previous work-ups were negative. She still having persistent nausea and vomiting with cramping she denies any dysuria urgency or frequency she has had some loose stools. She had recently been taking antibiotics. MD elicited complaint: abdominal pain Pertinent past history: other (Diabetic gastroparesis) Onset (ago): week(s) Pain Consistency: intermittent Location: Diffuse and Epigastric Severity: severe Quality: cramping Radiation: none Migration to: no migration Exacerbating factors: eating Relieving factors: nothing Associated Symptoms: Denies chills, diarrhea, dysuria and fever(s) Related Data: Date of Last Menstrual Period: 03/25/20 Review of Systems Const: Denies: fever(s), chills, body aches, change in appetite, fatigue or malaise ENMT: Denies: throat pain, ear or mastoid pain, nasal discharge or nasal congestion Card: Denies: chest pain, edema, dyspnea on exertion or orthopnea Resp: Denies: dyspnea, productive cough or non-productive cough : Denies: flank pain, difficulty voiding, dysuria, urinary frequency or urinary urgency Skin/Breast: Denies: rash or pruritus [facility] ED PFSH: Medical History (Updated 05/23/20 @ 13:16 by Shravan Jones DO) Anxiety Chronic headache Diabetes DKA (diabetic ketoacidoses) HTN (hypertension) Hyperglycemia Lymphadenitis Migraine headache Pancreatitis PID (pelvic inflammatory disease) Pleural effusion 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 Pyelonephritis Respiratory failure Sepsis Ureterolithiasis Surgical History History of cholecystectomy History of endoscopy History of lung surgery Social History Smoking and tobacco status: current every day smoker Household members: spouse Housing: House Female Reproductive History: Date of last menstrual period: 03/25/20 Physical Exam Const: COMMON NORMALS: no acute distress GENERAL APPEARANCE: cooperative and comfortable ORIENTATION/CONSCIOUSNESS: Yes awake, Yes oriented to person, Yes oriented to place and Yes oriented to time HENMT: COMMON NORMALS: normocephalic, atraumatic and hearing grossly normal bilaterally HEAD & SCALP: normocephalic and atraumatic Neck/C-Spine: COMMON NORMALS: no JVD Lymph: LYMPHATIC: no lymphadenopathy noted and no lymphedema noted Resp: COMMON NORMALS: normal respiratory effort, No retractions, No use of accessory muscles and clear to auscultation bilaterally AUSCULTATION: clear to auscultation bilaterally Cardio: COMMON NORMALS: no JVD, regular rate, regular rhythm and No murmurs present (Cardio) RATE: regular rate RHYTHM: regular rhythm GI: COMMON NORMALS: Soft to palpation and No hepatosplenomegaly present AUSCULTATION: Yes normoactive bowel sounds PALPATION: Yes Soft to palpation, Yes Tenderness to palpation present (GI) (diffuse), No Guarding due to palpation present (GI) and Yes No hepatosplenomegaly present Extremity: COMMON NORMALS: normal to inspection, capillary refill normal, no clubbing, cyanosis or edema, no calf tenderness and no pedal edema Neuro: SENSORIUM/ORIENTATION: Yes oriented to person, Yes oriented to place and Yes oriented to time Skin: COMMON NORMALS: no rashes or lesions noted GENERAL SKIN EXAM: no rashes or lesions noted Course Vital Signs: Vital signs: Vital Signs Temperature 96.6 F L 05/23/20 10:42 Pulse Rate 98 05/23/20 10:42 Respiratory Rate 20 H 05/23/20 10:42 Blood Pressure 97/78 05/23/20 10:42 Pulse Oximetry 97 05/23/20 10:42 MDM - Abdominal Pain MDM Narrative: Medical decision making narrative: Proved with Reglan. CT unremarkable. I have seen this patient before in the past she does have problems get diabetic gastroparesis I think that is what her problem is today as well. We will discharge her home on erythromycin p.o. as well as Reglan as needed have her follow-up with her primary caregiver to get a gastric emptying study. Lab Data: Labs: Lab Results 05/23/20 05/23/20 05/23/20 Range/Units 11:47 11:47 11:47 WBC 10.6 H (4.0-10.0) 10^3/ uL RBC 5.59 H (4.1-5.3) 10^6/u L Hgb 16.2 H (11.5-15.3) g/dL Hct 47.2 H (37.0-47.0) % MCV 84.4 (81-99) fL MCH 29.0 (28.0-34.0) pg MCHC 34.3 (30.0-36.0) g/dL RDW 11.7 L (12.1-15.1) % Plt Count 257 (130-400) 10^3/c mm MPV 11.3 H (7.4-10.4) fL Neut % (Auto) 73.3 % Lymph % (Auto) 18.0 % [place] % (Auto) 7.0 % Eos % (Auto) 0.8 % Baso % (Auto) 0.6 % Neut # (Auto) 7.74 H (1.8-7.7) 10^3/u L Lymph # (Auto) 1.9 (0.8-4.8) 10^3/u L [place] # (Auto) 0.7 (0.2-0.9) 10^3/u L Eos # (Auto) 0.1 (0.0-0.8) 10^3/u L Baso # (Auto) 0.1 (0.0-0.1) 10^3/u L Nucleated RBC % (a uto) 0 % Nucleated RBCs # 0.0 /100WBC Sodium 134 L (136-145) mmol/L Potassium 5.0 (3.5-5.1) mmol/L Chloride 93 L (98-107) mmol/L Carbon Dioxide 28 (22-29) mmol/L Anion Gap 18.0 (5-19) BUN 31 H (6-20) mg/dL Creatinine 1.0 H (0.5-0.9) mg/dL GFR Calculation 63.9 L (90-130) mL/min Glucose 420 H (65-115) mg/dL Calculated Osmolal ity 302 H (285-295) mOsm/k g Calcium 11.3 H (8.5-10.5) mg/dL Total Bilirubin 0.5 (0.15-1.2) mg/dL AST 13 (0-32) U/L ALT 13 (0-33) U/L Alkaline Phosphata se 104 (35-105) IU/L Total Protein 8.0 (6.6-8.7) g/dL Albumin 4.3 (3.5-5.2) g/dL Globulin 3.7 (1.3-4.6) g/dL Lipase 19 (13-60) U/L HCG, Qual Negative (Negative) Urine Color (Yellow) Urine Appearance (CLEAR) Urine pH (5-7) Ur Specific Gravit y (1.005-1.030) Urine Protein (Negative) Urine Glucose (UA) (Normal) Urine Ketones (Negative) Urine Blood (Negative) Urine Nitrate (Negative) Urine Bilirubin (Negative) Urine Urobilinogen (Negative) mg/dL Ur Leukocyte Denise ase (Negative) Urine RBC (0-2) /hpf Urine WBC (0-5) /hpf Ur Squamous Epith Cells (0-5) /hpf Calcium Oxalate Cr ystal /hpf Amorphous Sediment Urine Bacteria (NONE) /hpf 11/30/20 Range/Units 11:53 WBC (4.0-10.0) 10^3/ uL RBC (4.1-5.3) 10^6/u L Hgb (11.5-15.3) g/dL Hct (37.0-47.0) % MCV (81-99) fL MCH (28.0-34.0) pg MCHC (30.0-36.0) g/dL RDW (12.1-15.1) % Plt Count (130-400) 10^3/c mm MPV (7.4-10.4) fL Neut % (Auto) % Lymph % (Auto) % [place] % (Auto) % Eos % (Auto) % Baso % (Auto) % Neut # (Auto) (1.8-7.7) 10^3/u L Lymph # (Auto) (0.8-4.8) 10^3/u L [place] # (Auto) (0.2-0.9) 10^3/u L Eos # (Auto) (0.0-0.8) 10^3/u L Baso # (Auto) (0.0-0.1) 10^3/u L Nucleated RBC % (a uto) % Nucleated RBCs # /100WBC Sodium (136-145) mmol/L Potassium (3.5-5.1) mmol/L Chloride (98-107) mmol/L Carbon Dioxide (22-29) mmol/L Anion Gap (5-19) BUN (6-20) mg/dL Creatinine (0.5-0.9) mg/dL GFR Calculation (90-130) mL/min Glucose (65-115) mg/dL Calculated Osmolal ity (285-295) mOsm/k g Calcium (8.5-10.5) mg/dL Total Bilirubin (0.15-1.2) mg/dL AST (0-32) U/L ALT (0-33) U/L Alkaline Phosphata se (35-105) IU/L Total Protein (6.6-8.7) g/dL Albumin (3.5-5.2) g/dL Globulin (1.3-4.6) g/dL Lipase (13-60) U/L HCG, Qual (Negative) Urine Color Yellow (Yellow) Urine Appearance Hazy A (CLEAR) Urine pH 5 (5-7) Ur Specific Gravit y 1.015 (1.005-1.030) Urine Protein 1+ H (Negative) Urine Glucose (UA) 4+ H (Normal) Urine Ketones 1+ H (Negative) Urine Blood 2+ H (Negative) Urine Nitrate Negative (Negative) Urine Bilirubin Neg (Negative) Urine Urobilinogen Norm (Negative) mg/dL Ur Leukocyte Denise ase Negative (Negative) Urine RBC 5-10 H (0-2) /hpf Urine WBC 5-10 H (0-5) /hpf Ur Squamous Epith Cells 15-25 H (0-5) /hpf Calcium Oxalate Cr ystal 0-4 H /hpf Amorphous Sediment Not Reportable Urine Bacteria 2+ H (NONE) /hpf Discharge Plan Discharge Patient Disposition: Home Clinical Impression: Diabetic gastroparesis, Diabetes mellitus Condition: Stable Prescriptions: New Reglan 10 mg tablet 10 mg PO Q6H 7 Days Qty: 28 RF: 0 erythromycin 333 mg tablet,delayed release (DR/EC) 333 mg PO TID Qty: 30 RF: 0 Held Zofran 4 mg tablet 4 mg PO Q8H Qty: 15 RF: 0 Hold Instructions: Resume on 05/30/20. No Action topiramate [Topamax] 100 mg tablet 100 mg PO DAILY Qty: 30 RF: 3 Medrol (Raul) 4 mg tablets,dose pack See Rx Instructions .ROUTE .COMPLEX Qty: 21 RF: 0 [place] 5-325 mg tablet 1 tab PO Q6H Qty: 10 RF: 0 Zofran 4 mg tablet 4 mg PO Q6H PRN (Reason: nausea and vomiting) Qty: 10 RF: 0 Prevacid 30 mg capsule,delayed release(DR/EC) 30 mg PO DAILY Qty: 30 RF: 0 insulin lispro [Humalog KwikPen Insulin] 100 unit/mL Insulin Pen See Rx Instructions .ROUTE .COMPLEX RF: 0 Lantus Solostar U-100 Insulin 100 unit/mL (3 mL) Insulin Pen 50 unit SUBCUT BID RF: 0 acetaminophen [Tylenol Extra Strength] 500 mg Tablet 500 - 1,000 mg PO Q6H PRN (Reason: Pain) RF: 0 Discharge Orders: Discharge Order (Routine); Ordered 05/23/20 Ordered By: Shravan Jones Referrals: Elizabeth Dougherty FNP [Primary Care Provider] - Discharge Diet: Usual diet Discharge Activity: Increase activity as tolerated Coding Level of Care Code ED [employer] Manager for Chg Fwd Exam Comprehensive
[2020-05-23 11:42] VITALS: BP 140/89; PULSE 78; RESP 16; O2SAT 98
[2020-05-23 11:56] LABS: Basophils # 0.1 10^3/uL (0.0-0.1); Basophils % 0.6 %; Eosinophils # 0.1 10^3/uL (0.0-0.8); Eosinophils % 0.8 %; Hematocrit 47.2 % (37.0-47.0); Hemoglobin 16.2 g/dL (11.5-15.3); Lymphocytes # 1.9 10^3/uL (0.8-4.8); Mean Corpuscular HGB Conc 34.3 g/dL (30.0-36.0); Mean Corpuscular Volume 84.4 fL (81-99); Mean Platelet Volume 11.3 fL (7.4-10.4); Monocytes # 0.7 10^3/uL (0.2-0.9); Neutrophils # 7.74 10^3/uL (1.8-7.7); Neutrophils % 73.3 %; Nucleated Red Blood Cells % 0 %; Platelet Count 257 10^3/cmm (130-400); Red Blood Count 5.59 10^6/uL (4.1-5.3); Red Cell Distribution Width 11.7 % (12.1-15.1); White Blood Count 10.6 10^3/uL (4.0-10.0)
[2020-05-23] MEDS: lidocaine 2% viscous 15 ML, aluminum-mag hydrox-simethicon 30 ML, sucralfate oral liq 1 GM PO (12:06)
[2020-05-23] MEDS: metoclopramide 5 mg/mL SDV 2 mL 10 MG IVP (12:06)
[2020-05-23] MEDS: sodium chloride 0.9% 1,000 ML 999 ML IV (12:06)
[2020-05-23 12:09] LABS: HCG, Serum Qual Negative (Negative)
[2020-05-23 12:13] LABS: Alanine Aminotransferase 13 U/L (0-33); Albumin Level 4.3 g/dL (3.5-5.2); Alkaline Phosphatase 104 IU/L (35-105); Aspartate Amino Transferase 13 U/L (0-32); Blood Urea Nitrogen 31 mg/dL (6-20); Calcium 11.3 mg/dL (8.5-10.5); Carbon Dioxide 28 mmol/L (22-29); Chloride 93 mmol/L (98-107); Globulin 3.7 g/dL (1.3-4.6); Glomerular Filtration Rate 63.9 mL/min (90-130); Glucose 420 mg/dL (65-115); Lipase 19 U/L (13-60); Osmolality Calculated 302 mOsm/kg (285-295); Sodium 134 mmol/L (136-145); Total Bilirubin 0.5 mg/dL (0.15-1.2)
[2020-05-23 12:29] VITALS: BP 135/78; PULSE 78; RESP 15; O2SAT 97
[2020-05-23] MEDS: iohexol 300 mg/mL 100 mL Btl IV (12:45)
[2020-05-23 12:57] LABS: Add Urine Microscopic? YES; Bilirubin Urine Neg (Negative); Blood Urine 2+ (Negative); Glucose Urine UA 4+ (Normal); Ketones Urine 1+ (Negative); Leukocyte Esterase Urine Negative (Negative); Nitrate Urine Negative (Negative); Protein Urine 1+ (Negative); Specific Gravity, Urine 1.015 (1.005-1.030); Urine Appearance Hazy (CLEAR); Urine Color Yellow (Yellow); Urobilinogen Urine Norm (Negative); pH Urine 5 (5-7)
[2020-05-23 13:18] LABS: Add Urine Culture? No; Bacteria Urine 2+ /hpf; Calcium Oxalate Crystals Urine 0-4 /hpf; Squamous Epithelial Cell Urine 15-25 /hpf (0-5)
[2020-05-23 13:27] VITALS: BP 128/76; PULSE 75; RESP 16; O2SAT 97
== END 2020-05-23 13:28 | disposition home or self-care (01) ==
PROVIDERS: Emergency Provider Family Medicine; PCP Nurse Practitioner Family
DX: E11.43 Type 2 diabetes mellitus with diabetic autonomic (poly)neuropathy (principal); K31.84 Gastroparesis; Z79.4 Long term (current) use of insulin; I10 Essential (primary) hypertension; F17.210 Nicotine dependence, cigarettes, uncomplicated
CPT/HCPCS: 12345; 74177; 80053; 81001; 83690; 84703; 85025; 96361; 96374; 99283; J2765; J7030; Q9967

== ENCOUNTER 2020-05-24 11:37 | Inpatient (IN) | payer MEDICAID, SELFPAY ==
[2020-05-24 11:59] VITALS: BP 116/85; PULSE 96; RESP 22; TEMP 36.6; O2SAT 99; BMI 25.7
--- NOTE | 2020-05-24 13:37 | XRR_ITS ---
PROCEDURE INFORMATION: Exam: XR Chest, 1 View Exam date and time: 05/24/2020 1:54 PM Age: 34 years old Clinical indication: Cough and dyspnea; Prior surgery; Surgery type: Lobectomy left; Additional info: Dyspnea/cough TECHNIQUE: Imaging protocol: XR of the chest Views: 1 view. COMPARISON: CR XR chest 1V portable [id number] 05/09/2020 8:11 AM FINDINGS: Lungs: Postsurgical changes are present at the left pulmonary hilum with tierra and some fibrosis. Otherwise lungs are clear. Pleural space: Unremarkable. No pleural effusion. No pneumothorax. Heart/Mediastinum: Unremarkable. No cardiomegaly. Bones/joints: Unremarkable. XR/XR chest 1V portable [id number] IMPRESSION: Postsurgical changes in the left lung. No acute abnormality.
[2020-05-24 13:46] VITALS: O2SAT 98
--- NOTE | 2020-05-24 14:05 | ED_ITS ---
HPI - COVID General: Chief Complaint: COVID symptoms Stated Complaint: N/V, ABD PAIN, COVID SYMPTOMS Triage information: Has fever, cough or shortness of breath . Exposure to COVID + person last 14 days History of Present Illness: HPI Narrative: 34-year-old female has had multiple ER visits in the last 2 weeks. Patient is well-known to me and she has poorly controlled diabetes she had problems with diabetic gastroparesis in the past I seen her yesterday looking over her most recent visits it appears she is having problems with that again. We started her on erythromycin yesterday and gave her Reglan as well. Unfortunately she is not able to get the erythromycin because of logistical issues regarding her insurance. In the interim she was made aware that she has been exposed to Covid. She is having continued persistent nausea and vomiting and left-sided abdominal pain. She has not had any diarrhea. Blood sugar still is running high. She denies any fever. Does have a little bit of a cough. MD complaint: reported COVID exposure Prior covid testing: no COVID 19 common symptoms: positive cough, non-productive cough, dyspnea, fatigue, nausea and vomiting; negative productive cough, throat pain, nasal congestion or diarrhea COVID 19 other sytmptoms: negative chest pain, requiring oxygen or respiratory distress Onset (ago): day(s) Severity: moderate Pertinent comorbid conditions: diabetes, COPD/respiratory disease (Previous pulmonary resection for pulmonary empyema) and recent ED visit for same complaint Treatment prior to arrival: none COVID Results: SARS-CoV-2 Antigen (Rapid) Negative (Negative) 05/24/20 14:15 05/24/20 Review of Systems Const: Reports: fatigue ENMT: Denies: throat pain, ear or mastoid pain, nasal discharge or nasal congestion Card: Denies: chest pain, edema, dyspnea on exertion or orthopnea Resp: Reports: dyspnea and non-productive cough; Denies: productive cough GI: Reports: abdominal pain, nausea and vomiting; Denies: hematemesis, coffee ground emesis, diarrhea, constipation, bloating, hematochezia or melena : Denies: flank pain, difficulty voiding, dysuria, urinary frequency or urinary urgency Skin/Breast: Denies: rash or pruritus [facility] PFSH: Medical History (Updated 05/24/20 @ 15:29 by Shravan Jones DO) Anxiety Chronic headache Diabetes DKA (diabetic ketoacidoses) HTN (hypertension) Hyperglycemia Lymphadenitis Migraine headache Pancreatitis PID (pelvic inflammatory disease) Pleural effusion 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 Pyelonephritis Respiratory failure Sepsis Ureterolithiasis Surgical History History of cholecystectomy History of endoscopy History of lung surgery Social History Smoking and tobacco status: current every day smoker Household members: spouse Housing: House Female Reproductive History: Date of last menstrual period: 03/25/20 Physical Exam Const: COMMON NORMALS: no acute distress GENERAL APPEARANCE: cooperative and comfortable ORIENTATION/CONSCIOUSNESS: Yes oriented to person, Yes oriented to place and Yes oriented to time HENMT: COMMON NORMALS: normocephalic, atraumatic and hearing grossly normal bilaterally HEAD & SCALP: normocephalic and atraumatic Eye: COMMON NORMALS: Equal, round and reactive pupils present, EOMs intact bilaterally, conjunctivae normal and no scleral icterus CONJUNCTIVA: Yes co njunctivae normal PUPIL: Yes Equal, round and reactive pupils present Neck/C-Spine: COMMON NORMALS: full ROM, no lymphadenopathy, supple and no JVD Lymph: LYMPHATIC: no lymphadenopathy noted and no lymphedema noted Resp: COMMON NORMALS: normal respiratory effort, No retractions, No use of accessory muscles and clear to auscultation bilaterally AUSCULTATION: clear to auscultation bilaterally Cardio: COMMON NORMALS: no JVD, regular rate, regular rhythm and No murmurs present (Cardio) RATE: regular rate RHYTHM: regular rhythm GI: COMMON NORMALS: Soft to palpation and No hepatosplenomegaly present AUSCULTATION: Yes normoactive bowel sounds PALPATION: Yes Soft to palpation, No Tenderness to palpation present (GI), No Guarding due to palpation present (GI) and Yes No hepatosplenomegaly present Extremity: COMMON NORMALS: normal to inspection, capillary refill normal, no clubbing, cyanosis or edema, no calf tenderness and no pedal edema Neuro: SENSORIUM/ORIENTATION: Yes oriented to person, Yes oriented to place and Yes oriented to time Skin: COMMON NORMALS: no rashes or lesions noted GENERAL SKIN EXAM: no rashes or lesions noted Course Vital Signs: Vital signs: Vital Signs Temperature 97.9 F 05/24/20 11:59 Pulse Rate 96 05/24/20 11:59 Respiratory Rate 22 H 05/24/20 11:59 Blood Pressure 116/85 05/24/20 11:59 Pulse Oximetry 99 05/24/20 11:59 MDM - COVID MDM Narrative: Medical decision making narrative: Retracted nausea and vomiting most likely due to diabetic gastroparesis she is not responding to outpatient treatments will go ahead and put her on obs, IV fluids and antiemetics. With her recent significant exposure to Covid we will get a PTC lab done. The antigen was positive but still strongly suspicious she may have it. Orders written. Lab Data: Labs: Lab Results 05/24/20 05/24/20 05/24/20 Range/Units 14:00 14:10 14:10 WBC 10.4 H (4.0-10.0) 10^3/ uL RBC 5.58 H (4.1-5.3) 10^6/u L Hgb 16.0 H (11.5-15.3) g/dL Hct 46.5 (37.0-47.0) % MCV 83.3 (81-99) fL MCH 28.7 (28.0-34.0) pg MCHC 34.4 (30.0-36.0) g/dL RDW 11.5 L (12.1-15.1) % Plt Count 282 (130-400) 10^3/c mm MPV 11.8 H (7.4-10.4) fL Neut % (Auto) 77.6 % Lymph % (Auto) 15.2 % [place] % (Auto) 5.6 % Eos % (Auto) 0.6 % Baso % (Auto) 0.6 % Neut # (Auto) 8.11 H (1.8-7.7) 10^3/u L Lymph # (Auto) 1.6 (0.8-4.8) 10^3/u L [place] # (Auto) 0.6 (0.2-0.9) 10^3/u L Eos # (Auto) 0.1 (0.0-0.8) 10^3/u L Baso # (Auto) 0.1 (0.0-0.1) 10^3/u L Nucleated RBC % (a uto) 0 % Nucleated RBCs # 0.0 /100WBC Specimen Type Arterial Sample Site Brachial, right ABG pH 7.47 H (7.35-7.45) ABG pCO2 37.7 (35-45) mmHg ABG pO2 75.7 L (80.0-100.0) mmH g ABG HCO3 27.1 H (22-26) mmol/L ABG O2 Saturation 97.0 ABG Base Excess 3.3 H (-2.0-2.0) mmol/ L Braulio Test Pos A-a O2 Gradient 3.6 L (5-10) mmHg Hematocrit 48.6 H (37-47) % Hgb O2 Saturation 94.3 L (95-100) % Carboxyhemoglobin 2.0 (0.4-20.1) %THgb Methemoglobin 0.8 (0.4-1.5) % Total Hemoglobin 15.8 (12-16) g/dL Sodium 136.0 134 L (131-143) mmol/L Potassium 4.4 4.4 (3.5-5.0) mmol/L Glucose 523.0 H 565 H* (70-115) mg/dL Ionized Calcium 1.4 (1.1-1.4) mmol/L O2 Delivery Device Room air [employer] ID [place] Chloride 90 L (98-107) mmol/L Carbon Dioxide 28 (22-29) mmol/L Anion Gap 20.4 H (5-19) BUN 25 H (6-20) mg/dL Creatinine 1.0 H (0.5-0.9) mg/dL GFR Calculation 63.9 L (90-130) mL/min POC Glucose (70-110) mg/dL Calculated Osmolal ity 308 H (285-295) mOsm/k g Calcium 11.5 H (8.5-10.5) mg/dL Total Bilirubin 0.5 (0.15-1.2) mg/dL AST 14 (0-32) U/L ALT 13 (0-33) U/L Alkaline Phosphata se 112 H (35-105) IU/L Total Protein 8.4 (6.6-8.7) g/dL Albumin 4.5 (3.5-5.2) g/dL Globulin 3.9 (1.3-4.6) g/dL SARS-CoV-2 Ag (Rap id) (Negative) 05/24/20 05/24/20 Range/Units 14:15 14:36 WBC (4.0-10.0) 10^3/ uL RBC (4.1-5.3) 10^6/u L Hgb (11.5-15.3) g/dL Hct (37.0-47.0) % MCV (81-99) fL MCH (28.0-34.0) pg MCHC (30.0-36.0) g/dL RDW (12.1-15.1) % Plt Count (130-400) 10^3/c mm MPV (7.4-10.4) fL Neut % (Auto) % Lymph % (Auto) % [place] % (Auto) % Eos % (Auto) % Baso % (Auto) % Neut # (Auto) (1.8-7.7) 10^3/u L Lymph # (Auto) (0.8-4.8) 10^3/u L [place] # (Auto) (0.2-0.9) 10^3/u L Eos # (Auto) (0.0-0.8) 10^3/u L Baso # (Auto) (0.0-0.1) 10^3/u L Nucleated RBC % (a uto) % Nucleated RBCs # /100WBC Specimen Type Sample Site ABG pH (7.35-7.45) ABG pCO2 (35-45) mmHg ABG pO2 (80.0-100.0) mmH g ABG HCO3 (22-26) mmol/L ABG O2 Saturation ABG Base Excess (-2.0-2.0) mmol/ L [place]io Test A-a O2 Gradient (5-10) mmHg Hematocrit (37-47) % Hgb O2 Saturation (95-100) % Carboxyhemoglobin (0.4-20.1) %THgb Methemoglobin (0.4-1.5) % Total Hemoglobin (12-16) g/dL Sodium (131-143) mmol/L Potassium (3.5-5.0) mmol/L Glucose (70-115) mg/dL Ionized Calcium (1.1-1.4) mmol/L O2 Delivery Device [place] [employer] ID Chloride (98-107) mmol/L Carbon Dioxide (22-29) mmol/L Anion Gap (5-19) BUN (6-20) mg/dL Creatinine (0.5-0.9) mg/dL GFR Calculation (90-130) mL/min POC Glucose 515 (70-110) mg/dL Calculated Osmolal ity (285-295) mOsm/k g Calcium (8.5-10.5) mg/dL Total Bilirubin (0.15-1.2) mg/dL AST (0-32) U/L ALT (0-33) U/L Alkaline Phosphata se (35-105) IU/L Total Protein (6.6-8.7) g/dL Albumin (3.5-5.2) g/dL Globulin (1.3-4.6) g/dL SARS-CoV-2 Ag (Rap id) Negative (Negative) COVID Results: SARS-CoV-2 Antigen (Rapid) Negative (Negative) 05/24/20 14:15 05/24/20 Discharge Plan Discharge Patient Disposition: Admitted As Inpatient Clinical Impression: Diabetic gastroparesis, Uncontrolled type 1 diabetes mellitus, Exposure to severe acute respiratory syndrome coronavirus 2 (SARS-CoV-2) Condition: Stable Coding Level of Care Code ED [place] [employer] Tier for Chg Fwd Exam Comprehensive
[2020-05-24 14:10] LABS: ABG PCO2 37.7 mmHg (35-45); ABG PH Result 7.47 (7.35-7.45); Alveolar-Arterial Oxygen Gradi 3.6 mmHg (5-10); Arterial Blood Gas Hematocrit 48.6 % (37-47); Base Excess ABG 3.3 mmol/L (-2.0-2.0); Blood Gas Allen Test Pos; Blood Gas Sample Site Brachial, right; Blood Gas Sample Type Arterial; HCO3 ABG 27.1 mmol/L (22-26); HGB O2 Sat 94.3 % (95-100); Ionized Calcium Level - ABG 1.4 mmol/L (1.1-1.4); Methemoglobin 0.8 % (0.4-1.5); Oxygen Device ROOM AIR; PO2 ABG 75.7 mmHg (80.0-100.0); Potassium Level - ABG 4.4 mmol/L (3.5-5.0); Total Hemoglobin 15.8 g/dL (12-16)
[2020-05-24] MEDS: metoclopramide 5 mg/mL SDV 2 mL 10 MG IVP ×2 (14:31→18:34)
[2020-05-24] MEDS: sodium chloride 0.9% 1,000 ML 999 ML IV ×2 (14:31→17:00)
[2020-05-24] MEDS: insulin regular-human 100 units/1 mL 15 UNIT IVP (14:31)
[2020-05-24 14:34] LABS: Basophils # 0.1 10^3/uL (0.0-0.1); Basophils % 0.6 %; Eosinophils # 0.1 10^3/uL (0.0-0.8); Eosinophils % 0.6 %; Hematocrit 46.5 % (37.0-47.0); Lymphocytes # 1.6 10^3/uL (0.8-4.8); Lymphocytes % 15.2 %; Mean Corpuscular HGB Conc 34.4 g/dL (30.0-36.0); Mean Corpuscular Hemoglobin 28.7 pg (28.0-34.0); Mean Corpuscular Volume 83.3 fL (81-99); Mean Platelet Volume 11.8 fL (7.4-10.4); Monocytes # 0.6 10^3/uL (0.2-0.9); Monocytes % 5.6 %; Neutrophils # 8.11 10^3/uL (1.8-7.7); Neutrophils % 77.6 %; Nucleated Red Blood Cells % 0 %; Platelet Count 282 10^3/cmm (130-400); Red Blood Count 5.58 10^6/uL (4.1-5.3); Red Cell Distribution Width 11.5 % (12.1-15.1); White Blood Count 10.4 10^3/uL (4.0-10.0)
[2020-05-24 14:43] LABS: Glucose Point of Care 515 mg/dL (70-110)
[2020-05-24 14:45] LABS: SARS Covid-2 Antigen Negative (Negative)
[2020-05-24 14:55] LABS: Alanine Aminotransferase 13 U/L (0-33); Albumin Level 4.5 g/dL (3.5-5.2); Alkaline Phosphatase 112 IU/L (35-105); Anion Gap 20.4 (5-19); Aspartate Amino Transferase 14 U/L (0-32); Blood Urea Nitrogen 25 mg/dL (6-20); Calcium 11.5 mg/dL (8.5-10.5); Carbon Dioxide 28 mmol/L (22-29); Chloride 90 mmol/L (98-107); Globulin 3.9 g/dL (1.3-4.6); Glomerular Filtration Rate 63.9 mL/min (90-130); Osmolality Calculated 308 mOsm/kg (285-295); Potassium 4.4 mmol/L (3.5-5.1); Sodium 134 mmol/L (136-145); Total Bilirubin 0.5 mg/dL (0.15-1.2); Total Protein 8.4 g/dL (6.6-8.7)
[2020-05-24 15:00] LABS: Glucose 565 mg/dL (65-115)
[2020-05-24 15:45] LABS: Glucose Point of Care 401 mg/dL (70-110)
[2020-05-24 16:05] LABS: Add Urine Microscopic? YES; Bilirubin Urine Neg (Negative); Blood Urine 2+ (Negative); Glucose Urine UA 4+ (Normal); Ketones Urine 2+ (Negative); Leukocyte Esterase Urine Trace (Negative); Nitrate Urine Negative (Negative); Protein Urine Trace (Negative); Specific Gravity, Urine 1.015 (1.005-1.030); Urine Appearance SL Hazy (CLEAR); Urine Color Yellow (Yellow); Urobilinogen Urine Norm (Negative)
[2020-05-24 16:41] LABS: Ketone (Acetest) Serum Positive (Negative)
[2020-05-24 16:45] LABS: Add Urine Culture? Yes; Bacteria Urine 4+ /hpf; RBC Urine 40-50 /hpf (0-2)
--- NOTE | 2020-05-24 17:09 | P.HP_ITS ---
Providers/Chief Complaint Admitting Physician: Carie Saez MD Primary Care Provider: SUZANNE Dias Chief Complaint: N/V, ABD PAIN, COVID SYMPTOMS History of Present Illness Donita Aguilar is a 34 year old female with PMHx noted below presents with complaints of ongoing and persistent episodes of nausea, vomiting, abdominal pain, inability to tolerate oral intake for approximately 2 weeks. She was seen in the ER yesterday with similar symptoms at which point she was prescribed oral antiemetics and erythromycin which she states have not been helpful. Due to inability to tolerate oral intake she has not been able to take her insulin, does not recall when she last took this. Blood sugars have been very poorly controlled. She has been seen in the ER on multiple occasions particularly since February. She states that she has been referred to Dr. Ortega, endocrinology with an appointment scheduled for 06/16. Last A1c done in November was 16.5. Per her medication reconciliation she is on Lantus 50 units twice daily and sliding scale, typically 10 units with meals. She appears quite anxious and distressed during my encounter in the ER, clutching at her stomach and is clear evidence of emesis. So far she has received 1 L NS bolus and have requested an additional liter to be given. She has also received 15 units of insulin and a dose of Reglan. Work-up so far indicates minimal leukocytosis with a white count of 10.4, hemoglobin of 16.0 which is likely reflective of hemoconcentration, sodium of 134, normal potassium, chloride of 90, BUN of 25, creatinine of 1.0, anion gap of 20.4, blood glucose of 565, ABG showing a pH of 7.47, positive serum ketones, analysis that is indicative of infection as well as hematuria, glucosuria and ketonuria. Following 15 units of insulin her blood sugar is 401. She reports that her father whom she lives with tested positive for COVID-19 infection yesterday, she does deny shortness of breath, cough, fever/chills but has been feeling quite poorly over the past several days. Rapid COVID-19 testing here is negative, PCR testing has been ordered and is currently pending. She is on isolation precautions. She will require aggressive IV fluid hydration, close monitoring of her blood glucose with low threshold for need for insulin drip, further management of intractable nausea and vomiting, hence need for admission. Review of Systems Const: Reports: body aches, change in appetite (decreased appetite), fatigue and malaise; Denies: fever(s) or chills Eyes: Denies: change in vision ENMT: Reports: dry mouth Card: Reports: chest pain; Denies: edema, swelling of feet/ankles, lightheadedness, syncope or pre-syncope Resp: Denies: dyspnea, productive cough or non-productive cough GI: Reports: abdominal pain, nausea, vomiting (NBNB), diarrhea and bloating; Denies: hematemesis, coffee ground emesis or hematochezia : Reports: difficulty voiding, dysuria and oliguria Musc: Denies: back pain Skin/Breast: Denies: rash Neuro: Denies: numbness in extremities, weakness in extremities or frequent falls Psych: Denies: anxiety Medications/Allergies Home Medications Medication Instructions Recorded Confirmed Last Taken Type Lantus Solostar U-100 Insulin 50 unit SUBCUT BID 06/30/19 05/24/20 05/24/20 History insulin lispro [Humalog KwikPen See Rx Instructions .ROUTE .COMPLEX 06/30/19 05/24/20 05/23/20 History Insulin] acetaminophen [Tylenol Extra 500 - 1,000 mg PO Q6H PRN 03/01/20 05/24/20 03/16/20 History Strength] lansoprazole [Prevacid] 30 mg PO DAILY #30 cap 05/06/20 05/24/20 Unknown Rx ondansetron HCl [Zofran] 4 mg PO Q6H PRN #10 tab 05/06/20 05/24/20 Unknown Rx ondansetron HCl [Zofran] 4 mg PO Q8H #15 tab 05/09/20 05/24/20 Unknown Rx metoclopramide HCl [Reglan] 10 mg PO Q6H 7 Days #28 tab 05/23/20 05/24/20 Unknown Rx Allergies Allergy/AdvReac Type Severity Reaction Status Date / Time No Known Allergies Allergy Verified 03/22/20 13:47 PFSH Acute PFSH: Medical History (Updated 05/24/20 @ 17:37 by Carie Saez MD) Anxiety Arnold-Chiari malformation Chronic headache Diabetic neuropathy associated with type 1 diabetes mellitus DKA (diabetic ketoacidoses) HTN (hypertension) Hyperglycemia Lymphadenitis Migraine headache Non-alcoholic fatty liver disease Pancreatitis PID (pelvic inflammatory disease) Pleural effusion 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 Pyelonephritis Respiratory failure Sepsis Type 1 diabetes mellitus Ureterolithiasis Surgical History (Updated 05/24/20 @ 17:24 by Carie Saez MD) History of cholecystectomy History of endoscopy History of lung surgery -s/p LLL lobectomy secondary to cavitary pneumonia (2017) Family History (Updated 05/24/20 @ 17:23 by Carie Saez MD) Grandfather Diabetes Social History (Updated 05/24/20 @ 17:25 by Carie Saez MD) Smoking and tobacco status: current every day smoker cigarettes Packs smoked per day: 0.5 Alcohol intake: never Substance/Drug Use: former Date of last use: 5 months ago; previous methamphetamine use Household members: spouse Housing: House Female Reproductive History: Date of last menstrual period: 03/25/20 Vitals/I&O/Wt Last Vital Signs Temp 97.9 F 05/24/20 11:59 Pulse 96 05/24/20 11:59 Resp 22 H 05/24/20 11:59 BP 116/85 05/24/20 11:59 Pulse Ox 98 05/24/20 13:46 Weight last 48 hrs Weight 59.874 kg Physical Exam Const: COMMON NORMALS: no acute distress, patient oriented x3 and alert GENERAL APPEARANCE: cooperative, in distress (due to pain) and anxious; not comfortable ORIENTATION/CONSCIOUSNESS: Yes awake HENMT: COMMON NORMALS: normocephalic, atraumatic and hearing grossly normal bilaterally HEAD & SCALP: normocephalic and atraumatic MOUTH: moist mucous membranes abnormal Details: parched Eye: COMMON NORMALS: Equal, round and reactive pupils present, EOMs intact bilaterally and conjunctivae normal CONJUNCTIVA: Yes conjunctivae normal PUPIL: Yes Equal, round and reactive pupils present Neck/C-Spine: COMMON NORMALS: full ROM GENERAL: Yes normal visual inspection and Yes trachea midline Resp: COMMON NORMALS: normal respiratory effort, No retractions, No use of accessory muscles and clear to auscultation bilaterally EFFORT & INSPECTION: Yes able to speak in complete sentences, Yes symmetric chest movement and Yes tachypneic AUSCULTATION: clear to auscultation bilaterally OTHER: -on RA Cardio: COMMON NORMALS: regular rate, regular rhythm, S1 normal heart sound present, S2 normal heart sound present and No murmurs present (Cardio) RATE: regular rate RHYTHM: regular rhythm HEART SOUNDS: S1 normal heart sound present and S2 normal heart sound present GI: COMMON NORMALS: Normal to inspection, nondistended, normoactive bowel sounds present and Soft to palpation PALPATION: Yes Soft to palpation and Yes Tenderness to palpation present (GI) (generalized) Extremity: COMMON NORMALS: normal to inspection, full ROM and no clubbing, cyanosis or edema; negative for no pedal edema Neuro: COMMON NORMALS: patient oriented x3, moves all extremities, no focal motor deficits, no sensory deficits noted and gait normal Psych: COMMON NORMALS: mental status grossly normal, Normal thought process present, cooperative, normal affect and speech normal SPEECH: Yes normal spee ch THOUGHT PROCESS: Normal thought process present Skin: COMMON NORMALS: no rashes or lesions noted, no jaundice, no petechiae and no mottling GENERAL SKIN EXAM: no rashes or lesions noted Data : 05/24/20 14:10 05/24/20 14:10 A&P Assessment and plan (1) Intractable nausea and vomiting: -Patient presents with a 2-week cycle of intractable nausea and vomiting (NBNB), inability to tolerate any oral intake, and inability to take her medications including insulin -Has an underlying history of diabetic gastroparesis secondary to poorly controlled type 1 diabetes mellitus -Aggressive IV fluid hydration, clear liquid diet if tolerated, antiemetics both as needed and scheduled -Has had previous ER visits for similar complaints and was prescribed oral antiemetics which she states have not been effective -Clinically appears quite dehydrated hence need for IV fluid hydration -Has had abdominal imaging done at least twice this month, last CT scan was yesterday indicating diffuse bladder wall thickening, no hydronephrosis, bilateral renal cortical scarring likely due to prior pyelonephritis, mild diffu se fatty liver infiltration, right ovarian cyst -UA shows evidence of infection; f/u blood and urine cx -start on Ceftriaxone -start on famotidine -monitor urine output -monitor vital signs Status: Acute (2) Diabetic gastroparesis: -likely contributing to pattern of intractable N/V noted above -Previously had normal gastric emptying study in 10/2014; repeat this Status: Acute (3) Cystitis: -UA shows evidence of infection; f/u blood and urine cx -start on Ceftriaxone -mild leukocytosis, afebrile Status: Acute (4) Exposure to severe acute respiratory syndrome coronavirus 2 (SARS-CoV-2): -father, whom she lives with, was just daignosed with COVID-19 infection -rapid COVID-19 test negative; PCR pending -isolation precautions -does not seem to have much in the way of respiratory symptoms so far Status: Acute (5) Uncontrolled type 1 diabetes mellitus: -very poorly controlled DM type I -last A1c (11/2019)-16.5; repeat -significant hyperglycemia (BG >500), noted ketonuria and glucosuria, pH indicating alkalosis, +ketonemia, elevated anion gap -Accucheks, ISS, hypoglycemia precautions, aggressive IVF hydration. Received 15 units of insulin in ED. Low threshold for increased hyperglycemia and need for insulin drip -hold scheduled insulin for now due to poor oral tolerance -has scheduled appointment to establish care with Dr. Ortega (endocrinology) on 06/16 -repeat BMP now Status: Acute Qualifiers: Glycemic state: with hyperglycemia Qualified Code(s): E10.65 - Type 1 diabetes mellitus with hyperglycemia (6) Diabetic neuropathy associated with type 1 diabetes mellitus: Status: Chronic Qualifiers: Diabetes mellitus complication detail: diabetic polyneuropathy Qualified Code(s): E10.42 - Type 1 diabetes mellitus with diabetic polyneuropathy Additional A&P Information -anxiety -prior methamphetamine use; check UDS in light of intractable N/V; last use per her report was about 5 months ago -s/p LLL lobectomy -R ovarian cyst; evaluate with pelvic US -chronic smoker, 1/2 PPD -ERICA, baseline Cr < 1; on IVF, continue to monitor renal function -GI ppx with famotidine -DVT ppx with SCDs, noted hematuria, hold AC -Dispo: home -Code status: FULL code -Admit to medical surgical floor, low threshold for continued hyperglycemia and potential need for insulin drip Attestations Medical Necessity Statement*: Donita Aguilar's hospital stay will require greater than 2 midnights for management of intractable nausea and vomiting, significant dehydration, significant hyperglycemia secondary to uncontrolled independent type 1 diabetes mellitus. Needs aggressive IV fluid hydration, clos e monitoring of blood glucose and appropriate correction. Time Spent in Patient Care: Greater than 35 minutes (>than 50% of time spent in counselling and/or direct pt care on unit) . Coding Level of Care Code Acute [employer] Manager for Chg Fwd Diagnoses Intractable nausea and vomiting R11.2 Diabetic gastroparesis E11.43; K31.84 Cystitis N30.90 Exposure to severe acute respiratory syndrome coronavirus 2 (SARS-CoV-2) Z20.828 Uncontrolled type 1 diabetes mellitus E10.65 Glycemic state: with hyperglycemia Diabetic neuropathy associated with type 1 diabetes mellitus E10.42 Diabetes mellitus complication detail: diabetic polyneuropathy
[2020-05-24 18:04] VITALS: BP 144/95; PULSE 102; RESP 20; TEMP 36.7; O2SAT 98
[2020-05-24 18:28] LABS: Glucose Point of Care 354 mg/dL (70-110)
[2020-05-24] MEDS: cefTRIAXone 1,000 MG in sodium chloride 0.9% (plus) 50 ML 100 MG IV (18:34)
[2020-05-24] MEDS: sodium chloride 0.9% 1,000 ML 150 ML IV ×2 (18:34→23:14)
[2020-05-24] MEDS: famotidine 20 mg/2 mL INJ IVP (18:34)
[2020-05-24 18:39] VITALS: RESP 17
[2020-05-24] MEDS: morphine 4 mg/mL SDV 1 mL 2 MG IVP ×2 (18:39→23:26)
[2020-05-24 19:14] LABS: Amphetamines Screen Urine Negative (Negative); Barbiturates Screen Urine Negative (Negative); Benzodiazepines Screen Urine Negative (Negative); Cocaine Screen Urine Negative (Negative); Opiate Screen Urine Negative (Negative); PCP Screen Urine Negative (Negative); THC Screen Urine Negative (Negative)
[2020-05-24 19:38] LABS: Blood Urea Nitrogen 26 mg/dL (6-20); Calcium 10.1 mg/dL (8.5-10.5); Carbon Dioxide 25 mmol/L (22-29); Chloride 97 mmol/L (98-107); Glomerular Filtration Rate 72.1 mL/min (90-130); Glucose 419 mg/dL (65-115); Osmolality Calculated 307 mOsm/kg (285-295); Sodium 137 mmol/L (136-145)
[2020-05-24 19:58] LABS: Anion Gap 19.4 (5-19); Potassium 4.4 mmol/L (3.5-5.1)
[2020-05-24 20:00] VITALS: BP 109/74; PULSE 95; RESP 19; TEMP 37.2; O2SAT 95
[2020-05-24 20:41] LABS: Glucose Point of Care 319 mg/dL (70-110)
[2020-05-24] MEDS: ondansetron 2 mg/ML SDV 2 mL 4 MG IVP (21:20)
[2020-05-24 23:26] VITALS: RESP 14
[2020-05-25] VITALS (8 sets, daily range): BP systolic 95–112; BP diastolic 59–75; PULSE 56–85; RESP 18–20; TEMP 36.6–37.1; O2SAT 93–98
[2020-05-25] MEDS: metoclopramide 5 mg/mL SDV 2 mL 10 MG IVP ×5 (00:42→23:42)
[2020-05-25] MEDS: morphine 4 mg/mL SDV 1 mL 2 MG IVP ×5 (04:32→21:10)
[2020-05-25 05:31] LABS: Basophils # 0.1 10^3/uL (0.0-0.1); Basophils % 0.5 %; Eosinophils # 0.1 10^3/uL (0.0-0.8); Eosinophils % 0.9 %; Hematocrit 35.8 % (37.0-47.0); Hemoglobin 12.1 g/dL (11.5-15.3); Lymphocytes # 3.2 10^3/uL (0.8-4.8); Lymphocytes % 27.9 %; Mean Corpuscular HGB Conc 33.8 g/dL (30.0-36.0); Mean Corpuscular Hemoglobin 28.9 pg (28.0-34.0); Mean Corpuscular Volume 85.4 fL (81-99); Mean Platelet Volume 11.8 fL (7.4-10.4); Monocytes # 1.1 10^3/uL (0.2-0.9); Monocytes % 9.2 %; Neutrophils % 61.3 %; Nucleated Red Blood Cells % 0 %; Platelet Count 251 10^3/cmm (130-400); Red Blood Count 4.19 10^6/uL (4.1-5.3); Red Cell Distribution Width 11.5 % (12.1-15.1); White Blood Count 11.6 10^3/uL (4.0-10.0)
[2020-05-25 05:50] LABS: Alanine Aminotransferase 7 U/L (0-33); Albumin Level 3.3 g/dL (3.5-5.2); Alkaline Phosphatase 76 IU/L (35-105); Anion Gap 15.4 (5-19); Aspartate Amino Transferase 13 U/L (0-32); Blood Urea Nitrogen 21 mg/dL (6-20); Calcium 8.8 mg/dL (8.5-10.5); Carbon Dioxide 27 mmol/L (22-29); Chloride 102 mmol/L (98-107); Globulin 2.9 g/dL (1.3-4.6); Glomerular Filtration Rate 72.1 mL/min (90-130); Glucose 169 mg/dL (65-115); Osmolality Calculated 299 mOsm/kg (285-295); Potassium 3.4 mmol/L (3.5-5.1); Sodium 141 mmol/L (136-145); Total Bilirubin 0.2 mg/dL (0.15-1.2); Total Protein 6.2 g/dL (6.6-8.7)
[2020-05-25 06:00] LABS: Estmated Average Glucose 226; Hemoglobin A1C 9.5 % (4.0-6.0)
[2020-05-25 06:41] LABS: Glucose Point of Care 163 mg/dL (70-110)
[2020-05-25] MEDS: famotidine 20 mg/2 mL INJ IVP ×2 (06:55→17:22)
[2020-05-25] MEDS: sodium chloride 0.9% 1,000 ML 150 ML IV ×2 (06:56→11:51)
[2020-05-25 11:21] LABS: Glucose Point of Care 177 mg/dL (70-110)
--- NOTE | 2020-05-25 15:08 | P.PN_ITS ---
Subjective Subjective: Interval history: Last dose of PRN antiemetics was last night, seem to have tolerated clear liquid diet this morning without difficulty but declined lunch. Blood sugars much better controlled, labs today particularly CBC are more likely to be accurate as suspect yesterday's CBC to be hemoconcentrated. COVID PCR test pending. Remains on IV fluid hydration and IV antibiotics. She looks better today, sitting up straighter in the bed, apparently does not like city water so we will try to get her bottled water instead to encourage continued oral intake. She is quite apprehensive about advancing her diet so we will stick with clear liquid diet for now. Medications: Reviewed: Yes Medication Review Details: Active Medications Generic Name Dose Route Start Last Admin Trade Name Freq PRN Reason Stop Dose Admin Acetaminophen 650 mg 05/24/20 18:04 Acetaminophen 32 5 Mg Tablet PO Q6H PRN Mild/Mod Pain Or Temp >/= 101 Dextrose 25 ml 05/24/20 18:04 Dextrose 50% Syr patricia 50 Ml IVP ONCE PRN hypoglycemia prot ocol Protocol Dextrose 50 ml 05/24/20 18:04 Dextrose 50% Syr patricia 50 Ml IVP PRN PRN hypoglycemia prot ocol Protocol Famotidine 20 mg 05/24/20 18:04 05/25/20 06:55 Famotidine 20 Mg /2 Ml Inj IVP 20 mg Q12H SHAY Administration Glucagon 1 mg 05/24/20 18:04 Glucagon 1 Mg/Ml Inj 1 Ml IM ONCE PRN Adult Acute Hypog lycemia Prot. Protocol Sodium Chloride 1,000 mls @ 150 m ls/hr 05/24/20 18:04 05/25/20 11:51 Sodium Chloride 0.9% IV 150 mls/hr .Q6H40M SHAY Administration Ceftriaxone Sodium 1,000 mg/ 50 mls @ 100 mls/ hr 05/24/20 18:04 05/25/20 07:47 Sodium Chloride IV Infused Q24H SHAY Infusion Protocol Dextrose 500 mls @ 100 mls /hr 05/24/20 18:04 D5w IV ONCE PRN Adult Acute Hypog lycemia Prot Protocol Insulin Aspart 0 unit 05/24/20 18:04 05/25/20 11:50 Insulin Aspart 1 00 Unit/1 Ml SUBCUT 4 unit WM&BEDTIME SHAY Administration Protocol Metoclopramide HCl 10 mg 05/24/20 18:04 05/25/20 11:51 Metoclopramide 5 Mg/Ml Sdv 2 Ml IVP 10 mg Q6H SHAY Administration Morphine Sulfate 2 mg 05/24/20 18:04 05/25/20 13:14 Morphine 4 Mg/Ml Sdv 1 Ml IVP 2 mg Q4H PRN Administration SEVERE PAIN Ondansetron HCl 4 mg 05/24/20 18:04 05/24/20 21:20 Ondansetron 2 Mg /Ml Sdv 2 Ml IVP 4 mg Q6H PRN Administration NAUSEA AND VOMITI NG No Known Allergies Allergy (Verified 03/22/20 13:47) Vitals/I&O/Wt Last Vital Signs Temp 98.3 F 05/25/20 11:22 Pulse 75 05/25/20 11:22 Resp 20 H 05/25/20 11:22 BP 112/75 05/25/20 11:22 Pulse Ox 96 05/25/20 11:22 05/25/20 05/25/20 05/25/20 06:59 14:59 22:59 Intake Total 1700 / 1700 2947.5 / 2947.5 Balance 1700 / 1700 2947.5 / 2947.5 Weight last 48 hrs Weight 59.874 kg Physical Exam Const: COMMON NORMALS: no acute distress, patient oriented x3 and alert GENERAL APPEARANCE: cooperative and comfortable ORIENTATION/CONSCIOUSNESS: Yes awake OTHER: -in good spirits HENMT: COMMON NORMALS: normocephalic, atraumatic, hearing grossly normal bilaterally and moist oral mucous membranes HEAD & SCALP: normocephalic and atraumatic Eye: COMMON NORMALS: Equal, round and reactive pupils present, EOMs intact bilaterally and conjunctivae normal CONJUNCTIVA: Yes conjunctivae normal PUPIL: Yes Equal, round and reactive pupils present Neck/C-Spine: COMMON NORMALS: full ROM GENERAL: Yes normal visual inspection and Yes trachea midline Resp: COMMON NORMALS: normal respiratory effort, No retractions, No use of accessory muscles and clear to auscultation bilaterally EFFORT & INSPECTION: Yes able to speak in complete sentences, Yes symmetric chest movement and Yes tachypneic AUSCULTATION: clear to auscultation bilaterally OTHER: -on RA Cardio: COMMON NORMALS: regular rate, regular rhythm, S1 normal heart sound present, S2 normal heart sound present and No murmurs present (Cardio) RATE: regular rate RHYTHM: regular rhythm HEART SOUNDS: S1 normal heart sound present and S2 normal heart sound present GI: COMMON NORMALS: Normal to inspection, nondistended, normoactive bowel christopher nds present and Soft to palpation PALPATION: Yes Soft to palpation and Yes Tenderness to palpation present (GI) (generalized) Extremity: COMMON NORMALS: normal to inspection, full ROM and no clubbing, cyanosis or edema; negative for no pedal edema Neuro: COMMON NORMALS: patient oriented x3, moves all extremities, no focal motor deficits, no sensory deficits noted and gait normal SENSORIUM/ORIENTATION: Yes alert Psych: COMMON NORMALS: mental status grossly normal, Normal thought process present, cooperative, normal affect and speech normal SPEECH: Yes normal speech THOUGHT PROCESS: Normal thought process present Skin: COMMON NORMALS: no rashes or lesions noted, no jaundice, no petechiae and no mottling GENERAL SKIN EXAM: no rashes or lesions noted Data : 05/25/20 04:20 05/25/20 04:20 Micro: Microbiology 05/24/20 18:44 Blood Culture - Preliminary Blood SPECIMEN COLLECTED 05/24/20 18:38 Blood Culture - Preliminary Blood SPECIMEN COLLECTED A&P Assessment and plan (1) Intractable nausea and vomiting: -Patient presents with a 2-week cycle of intractable nausea and vomiting (NBNB), inability to tolerate any oral intake, and inability to take her me dications including insulin -Has an underlying history of diabetic gastroparesis secondary to poorly controlled type 1 diabetes mellitus -Aggressive IV fluid hydration, clear liquid diet if tolerated, antiemetics both as needed and scheduled -Has had previous ER visits for similar complaints and was prescribed oral antiemetics which she states have not been effective -Clinically appears quite dehydrated hence need for IV fluid hydration -Has had abdominal imaging done at least twice this month, last CT scan was yesterday indicating diffuse bladder wall thickening, no hydronephrosis, bilateral renal cortical scarring likely due to prior pyelonephritis, mild diffuse fatty liver infiltration, right ovarian cyst -UA shows evidence of infection; f/u blood and urine cx -on Ceftriaxone -on famotidine -continue to monitor urine output -VSS; continue to monitor Status: Acute (2) Diabetic gastroparesis: -likely contributing to pattern of intractable N/V noted above -Previously had normal gastric emptying study in 10/2014; repeat this, potentially as outpatient unless symptoms do not improve in the interim. Status: Acute (3) Cystitis: -UA shows evidence of infection; f/u blood and urine cx -on Ceftriaxone -mild leukocytosis, afebrile Status: Acute (4) Exposure to severe acute respiratory syndrome coronavirus 2 (SARS-CoV-2): -father, whom she lives with, was just daignosed with COVID-19 infection -rapid COVID-19 test negative; PCR pending -isolation precautions -does not seem to have much in the way of respiratory symptoms so far Status: Acute (5) Uncontrolled type 1 diabetes mellitus: -very poorly controlled DM type I -A1c improved-9.5 (was previously 16.5) -significant hyperglycemia (BG >500), noted ketonuria and glucosuria, pH indicat ing alkalosis, +ketonemia, elevated anion gap. Hyperglycemia improved, AG closed -Accucheks, ISS, hypoglycemia precautions, aggressive IVF hydration. Received 15 units of insulin in ED. Low threshold for increased hyperglycemia and need for insulin drip -hold scheduled insulin for now due to poor oral tolerance -has scheduled appointment to establish care with Dr. Ortega (endocrinology) on 06/16 Status: Acute Qualifiers: Glycemic state: with hyperglycemia Qualified Code(s): E10.65 - Type 1 diabetes mellitus with hyperglycemia (6) Diabetic neuropathy associated with type 1 diabetes mellitus: Status: Chronic Qualifiers: Diabetes mellitus complication detail: diabetic polyneuropathy Qualified Code(s): E10.42 - Type 1 diabetes mellitus with diabetic polyneuropathy Additional A&P Information -anxiety -prior methamphetamine use; UDS negative; last use per her report was about 5 months ago -s/p LLL lobectomy -R ovarian cyst; evaluate with pelvic US -chronic smoker, 1/2 PPD -ERICA, baseline Cr < 1; on IVF, continue to monitor renal function. ERICA resolved -GI ppx with famotidine -DVT ppx with SCDs, noted hematuria, hold AC -Dispo: home -Code status: FULL code Attestations Medical Necessity Statement*: Patient requires hospitalization for continued IV antibiotics, IVF hydration, monitoring of blood glucose, pending improved oral tolerance. Time Spent in Patient Care: 16 - 35 minutes (>than 50% of time spent in counselling and/or direct pt care on unit) . Coding Level of Care Code Acute Body Engineer for Chg Fwd Exam Comprehensive Diagnoses Intractable nausea and vomiting R11.2 Diabetic gastroparesis E11.43; K31.84 Cystitis N30.90 Exposure to severe acute respiratory syndrome coronavirus 2 (SARS-CoV-2) Z20.828 Uncontrolled type 1 diabetes mellitus E10.65 Glycemic state: with hyperglycemia Diabetic neuropathy associated with type 1 diabetes mellitus E10.42 Diabetes mellitus complication detail: diabetic polyneuropathy
[2020-05-25 16:50] LABS: Glucose Point of Care 129 mg/dL (70-110)
[2020-05-25] MEDS: cefTRIAXone 1,000 MG in sodium chloride 0.9% (plus) 50 ML 100 MG IV (17:22)
[2020-05-25 20:53] LABS: Glucose Point of Care 298 mg/dL (70-110)
[2020-05-25] MEDS: sodium chloride 0.9% 1,000 ML 100 ML IV (21:22)
[2020-05-26] VITALS (10 sets, daily range): BP systolic 126–157; BP diastolic 80–94; PULSE 68–72; RESP 16–20; TEMP 36.5–37; O2SAT 96–97
[2020-05-26 05:27] LABS: Basophils % 0.5 %; Eosinophils # 0.1 10^3/uL (0.0-0.8); Eosinophils % 1.8 %; Hematocrit 34.9 % (37.0-47.0); Hemoglobin 11.6 g/dL (11.5-15.3); Lymphocytes # 2.8 10^3/uL (0.8-4.8); Lymphocytes % 36.5 %; Mean Corpuscular HGB Conc 33.2 g/dL (30.0-36.0); Mean Corpuscular Hemoglobin 28.4 pg (28.0-34.0); Mean Corpuscular Volume 85.3 fL (81-99); Mean Platelet Volume 11.7 fL (7.4-10.4); Monocytes # 0.6 10^3/uL (0.2-0.9); Monocytes % 7.5 %; Neutrophils # 4.06 10^3/uL (1.8-7.7); Neutrophils % 53.6 %; Nucleated Red Blood Cells % 0 %; Platelet Count 215 10^3/cmm (130-400); Red Blood Count 4.09 10^6/uL (4.1-5.3); Red Cell Distribution Width 11.6 % (12.1-15.1); White Blood Count 7.6 10^3/uL (4.0-10.0)
[2020-05-26 05:46] LABS: Anion Gap 12.4 (5-19); Blood Urea Nitrogen 14 mg/dL (6-20); Calcium 7.6 mg/dL (8.5-10.5); Carbon Dioxide 26 mmol/L (22-29); Chloride 106 mmol/L (98-107); Glomerular Filtration Rate 82.6 mL/min (90-130); Glucose 115 mg/dL (65-115); Osmolality Calculated 293 mOsm/kg (285-295); Potassium 3.4 mmol/L (3.5-5.1); Sodium 141 mmol/L (136-145)
[2020-05-26] MEDS: famotidine 20 mg/2 mL INJ IVP ×2 (05:51→18:00)
[2020-05-26] MEDS: morphine 4 mg/mL SDV 1 mL 2 MG IVP ×4 (05:52→18:09)
[2020-05-26] MEDS: metoclopramide 5 mg/mL SDV 2 mL 10 MG IVP ×3 (05:52→18:03)
[2020-05-26] MEDS: sodium chloride 0.9% 1,000 ML 100 ML IV (05:59)
[2020-05-26 06:54] LABS: Glucose Point of Care 140 mg/dL (70-110)
--- NOTE | 2020-05-26 07:00 | US_ITS ---
WS: [id number] ULTRASOUND PELVIS TECHNIQUE: Transabdominal and transvaginal. ULTRASOUND PELVIS TECHNIQUE: Transabdominal. CLINICAL INFORMATION: noted right ovarian cyst on CT COMPARISON: CT May 23, 2020 FINDINGS: Uterus Orientation: Anteverted. Size: 8.4 cm x 5.6 cm x 4.1 cm. Masses: None. Cervix: Normal Endometrium: Normal. Endometrium thickness: 0.3 cm. Adnexa: Enlarged right ovary with complex mixed echogenicity lesion measuring 4.4 x 3.9 x 4.8 cm like ly represents hemorrhagic cyst. Recommend follow-up in one to 2 menstrual cycles. Right ovary size: 6.0 cm x 5.1 cm x 3.7 cm. Right ovary volume: 60.0 ccm3. Left ovary size: 4.4 cm x 2.4 cm x 3.1 cm. Left ovary volume: 16.8 ccm3 Free fluid: Small amount of free fluid about the right ovary. Other findings: None. US/US pelvic with transvaginal IMPRESSION: 4.4 x 3.9 x 4.8 cm mixed echogenicity right ovarian lesion likely hemorrhagic c yst. Recommend follow-up in one to 2 menstrual cycles.
[2020-05-26 07:38] LABS: Coronavirus Lab Test PTC Negative
--- NOTE | 2020-05-26 09:58 | PC.RESP ---
SMOKING CESSATION INFORMATION SENT TO PATIENT.
--- NOTE | 2020-05-26 11:00 | PC.NURSE ---
Patient returned from US at this time.
[2020-05-26 11:26] LABS: Glucose Point of Care 202 mg/dL (70-110)
--- NOTE | 2020-05-26 13:33 | PM.PN ---
Subjective Subjective: Interval history: Hemodynamically stable, afebrile, on room air, had 700 mL urine output overnight. Leukocytosis resolved, stable hemoglobin and renal function, mild hypokalemia, Accu-Cheks reviewed. Blood cultures prelim negative, urine cultures have grown strep agalactiae. COVID PCR negative, discontinue isolation precautions. Resting quietly in bed, seems to have more difficulty with pain and discomfort in the left flank and right lower quadrant today, has done a little better with liquid diet and would like to continue this for now, has not had much in the way of nausea and has had no vomiting today. Medications: Reviewed: Yes Medication Review Details: Active Medications Generic Name Dose Route Start Last Admin Trade Name Freq PRN Reason Stop Dose Admin Acetaminophen 650 mg 05/24/20 18:04 Acetaminophen 32 5 Mg Tablet PO Q6H PRN Mild/Mod Pain Or Temp >/= 101 Dextrose 25 ml 05/24/20 18:04 Dextrose 50% Syr patricia 50 Ml IVP ONCE PRN hypoglycemia prot ocol Protocol Dextrose 50 ml 05/24/20 18:04 Dextrose 50% Syr patricia 50 Ml IVP PRN PRN hypoglycemia prot ocol Protocol Famotidine 20 mg 05/24/20 18:04 05/26/20 05:51 Famotidine 20 Mg /2 Ml Inj IVP 20 mg Q12H SHAY Administration Glucagon 1 mg 05/24/20 18:04 Glucagon 1 Mg/Ml Inj 1 Ml IM ONCE PRN Adult Acute Hypog lycemia Prot. Protocol Sodium Chloride 1,000 mls @ 100 m ls/hr 05/24/20 18:04 05/26/20 05:59 Sodium Chloride 0.9% IV 100 mls/hr .Q10H SHAY Administration Ceftriaxone Sodium 1,000 mg/ 50 mls @ 100 mls/ hr 05/24/20 18:04 05/26/20 10:06 Sodium Chloride IV Infused Q24H SHAY Infusion Protocol Dextrose 500 mls @ 100 mls /hr 05/24/20 18:04 D5w IV ONCE PRN Adult Acute Hypog lycemia Prot Protocol Insulin Aspart 0 unit 05/24/20 18:04 05/26/20 12:17 Insulin Aspart 1 00 Unit/1 Ml SUBCUT 6 unit WM&BEDTIME SHAY Administration Protocol Metoclopramide HCl 10 mg 05/24/20 18:04 05/26/20 12:18 Metoclopramide 5 Mg/Ml Sdv 2 Ml IVP 10 mg Q6H SHAY Administration Morphine Sulfate 2 mg 05/24/20 18:04 05/26/20 09:52 Morphine 4 Mg/Ml Sdv 1 Ml IVP 2 mg Q4H PRN Administration SEVERE PAIN Ondansetron HCl 4 mg 05/24/20 18:04 05/24/20 21:20 Ondansetron 2 Mg /Ml Sdv 2 Ml IVP 4 mg Q6H PRN Administration NAUSEA AND VOMITI NG No Known Allergies Allergy (Verified 03/22/20 13:47) Vitals/I&O/Wt Last Vital Signs Temp 98.4 F 05/26/20 11:13 Pulse 70 05/26/20 11:13 Resp 18 05/26/20 11:13 BP 157/94 05/26/20 11:13 Pulse Ox 97 05/26/20 11:13 05/25/20 05/26/20 05/26/20 22:59 06:59 14:59 Intake Total 1480 / 4427.5 861.667 / 5289.167 390 / 390 Output Total 400 / 400 300 / 700 Balance 1080 / 4027.5 561.667 / 4589.167 390 / 390 Weight last 48 hrs Weight 66.905 kg Weight 65.317 kg Physical Exam Const: COMMON NORMALS: no acute distress, patient oriented x3 and alert GENERAL APPEARANCE: cooperative and comfortable ORIENTATION/CONSCIOUSNESS: Yes awake OTHER: -in good spirits HENMT: COMMON NORMALS: normocephalic, atraumatic, hearing grossly normal bilaterally and moist oral mucous membranes HEAD & SCALP: normocephalic and atraumatic MOUTH: moist mucous membranes abnormal Details: parched Eye: COMMON NORMALS: Equal, round and reactive pupils present, EOMs intact bilaterally and conjunctivae normal CONJUNCTIVA: Yes conjunctivae normal PUPIL: Yes Equal, round and reactive pupils present Neck/C-Spine: COMMON NORMALS: full ROM GENERAL: Yes normal visual inspection and Yes trachea midline Resp: COMMON NORMALS: normal respiratory effort, No retractions, No use of accessory muscles and clear to auscultation bilaterally EFFORT & INSPECTION: Yes able to speak in complete sentences, Yes symmetric chest movement and Yes tachypneic AUSCULTATION: clear to auscultation bilaterally OTHER: -on RA Cardio: COMMON NORMALS: regular rate, regular rhythm, S1 normal heart sound present, S2 normal heart sound present and No murmurs present (Cardio) RATE: regular rate RHYTHM: regular rhythm HEART SOUNDS: S1 normal heart sound present and S2 normal heart sound present GI: COMMON NORMALS: Normal to inspection, nondistended, normoactive bowel sounds present and Soft to palpation PALPATION: Yes Soft to palpation and Yes Tenderness to palpation present (GI) (generalized) Back/Pelvis: GENERAL BACK: Yes CVA tenderness CVA tenderness: left Extremity: COMMON NORMALS: normal to inspection, full ROM and no clubbing, cyanosis or edema; negative for no pedal edema Neuro: COMMON NORMALS: patient oriented x3, moves all extremities, no focal motor deficits, no sensory deficits noted and gait normal SENSORIUM/ORIENTATION: Yes alert Psych: COMMON NORMALS: mental status grossly normal, Normal thought process present, cooperative, normal affect and speech normal SPEECH: Yes normal speech THOUGHT PROCESS: Normal thought process present Skin: COMMON NORMALS: no rashes or lesions noted, no jaundice, no petechiae and no mottling GENERAL SKIN EXAM: no rashes or lesions noted Data : 05/26/20 04:30 05/26/20 04:30 Micro: Microbiology 05/24/20 15:40 Urine Culture - Preliminary Urine,Clean Catch Strep agalactiae - (group b) 05/24/20 18:44 Blood Culture - Preliminary Blood NEGATIVE TO DATE 05/24/20 18:38 Blood Culture - Preliminary Blood NEGATIVE TO DATE A&P Assessment and plan (1) Intractable nausea and vomiting: -Patient presents with a 2-week cycle of intractable nausea and vomiting (NBNB), inability to tolerate any oral intake, and inability to take her medications including insulin -Has an underlying history of diabetic gastroparesis secondary to poorly controlled type 1 diabetes mellitus -Aggressive IV fluid hydration, clear liquid diet if tolerated, antiemetics both as needed and scheduled -Has had previous ER visits for similar complaints and was prescribed oral antiemetics which she states have not been effective -Clinically appears quite dehydrated hence need for IV fluid hydration -Has had abdominal imaging done at least twice this month, last CT scan was yesterday indicating diffuse bladder wall thickening, no hydronephrosis, bilateral renal cortical scarring likely due to prior pyelonephritis, mild diffuse fatty liver infiltration, right ovarian cyst -UA shows evidence of infection; blood cx prelim negative, urine cx-Strep agalactaie -on Ceftriaxone -on famotidine -continue to monitor urine output -VSS; continue to monitor Status: Acute (2) Diabetic gastroparesis: -likely contributing to pattern of intractable N/V noted above -Previously had normal gastric emptying study in 10/2014; repeat this, potentially as outpatient unless symptoms do not improve in the interim. Status: Acute (3) Cystitis: -UA shows evidence of infection; blood cx prelim negative, urine cx-Strep agalactaie -on Ceftriaxone -mild leukocytosis, afebrile Status: Acute (4) Exposure to severe acute respiratory syndrome coronavirus 2 (SARS-CoV-2): -father, whom she lives with, was just daignosed with COVID-19 infection -rapid COVID-19 test negative; PCR negative -discontinue isolation precautions -does not seem to have much in the way of respiratory symptoms so far Status: Acute (5) Uncontrolled type 1 diabetes mellitus: -very poorly controlled DM type I -A1c improved-9.5 (was previously 16.5) -significant hyperglycemia (BG >500), noted ketonuria and glucosuria, pH indicating alkalosis, +ketonemia, elevated anion gap. Hyperglycemia improved, AG closed -Accucheks, ISS, hypoglycemia precautions, aggressive IVF hydration. Received 15 units of insulin in ED. Low threshold for increased hyperglycemia and need for insulin drip -hold scheduled insulin for now due to poor oral tolerance -has scheduled appointment to establish care with Dr. Ortega (endocrinology) on 06/16 Status: Acute Qualifiers: Glycemic state: with hyperglycemia Qualified Code(s): E10.65 - Type 1 diabetes mellitus with hyperglycemia (6) Diabetic neuropathy associated with type 1 diabetes mellitus: Status: Chronic Qualifiers: Diabetes mellitus complication detail: diabetic polyneuropathy Qualified Code(s): E10.42 - Type 1 diabetes mellitus with diabetic polyneuropathy Additional A&P Information -anxiety -prior methamphetamine use; UDS negative; last use per her report was about 5 months ago -s/p LLL lobectomy -R ovarian cyst; evaluate with pelvic US -chronic smoker, 1/2 PPD -ERICA, baseline Cr < 1; on IVF, continue to monitor renal function. ERICA resolved -GI ppx with famotidine -DVT ppx with SCDs, noted hematuria, hold AC -Dispo: home -Code status: FULL code Attestations Medical Necessity Statement*: Patient requires hospitalization for continued IV antibiotics, pending improved oral tolerance. Time Spent in Patient Care: 16 - 35 minutes (>than 50% of time spent in counselling and/or direct pt care on unit). 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
[2020-05-26 17:18] LABS: Glucose Point of Care 135 mg/dL (70-110)
[2020-05-26] MEDS: cefTRIAXone 1,000 MG in sodium chloride 0.9% (plus) 50 ML 100 MG IV (18:05)
[2020-05-26 20:38] LABS: Glucose Point of Care 263 mg/dL (70-110)
[2020-05-27] VITALS (12 sets, daily range): BP systolic 108–148; BP diastolic 71–92; PULSE 67–77; RESP 15–18; TEMP 36.7–37; O2SAT 94–100
[2020-05-27] MEDS: morphine 4 mg/mL SDV 1 mL 2 MG IVP ×4 (00:07→18:45)
[2020-05-27] MEDS: metoclopramide 5 mg/mL SDV 2 mL 10 MG IVP ×4 (00:07→18:50)
[2020-05-27] MEDS: famotidine 20 mg/2 mL INJ IVP ×2 (06:11→18:48)
[2020-05-27 07:24] LABS: Glucose Point of Care 144 mg/dL (70-110)
[2020-05-27] MEDS: ondansetron 2 mg/ML SDV 2 mL 4 MG IVP (08:38)
[2020-05-27 10:51] LABS: Glucose Point of Care 126 mg/dL (70-110)
--- NOTE | 2020-05-27 14:11 | P.PN_ITS ---
Subjective Subjective: Interval history: Hemodynamically stable, afebrile, remains on room air. Is on clear liquid diet but thinks she may be ready to advance her diet at this time. Accu-Cheks reviewed. Still has some L flank pain with urination, otherwise does feel better. Medications: Reviewed: Yes Medication Review Details: Active Medications Generic Name Dose Route Start Last Admin Trade Name Freq PRN Reason Stop Dose Admin Acetaminophen 650 mg 05/24/20 18:04 Acetaminophen 32 5 Mg Tablet PO Q6H PRN Mild/Mod Pain Or Temp >/= 101 Dextrose 25 ml 05/24/20 18:04 Dextrose 50% Syr patricia 50 Ml IVP ONCE PRN hypoglycemia prot ocol Protocol Dextrose 50 ml 05/24/20 18:04 Dextrose 50% Syr patricia 50 Ml IVP PRN PRN hypoglycemia prot ocol Protocol Famotidine 20 mg 05/24/20 18:04 05/27/20 06:11 Famotidine 20 Mg /2 Ml Inj IVP 20 mg Q12H SHAY Administration Glucagon 1 mg 05/24/20 18:04 Glucagon 1 Mg/Ml Inj 1 Ml IM ONCE PRN Adult Acute Hypog lycemia Prot. Protocol Ceftriaxone Sodium 1,000 mg/ 50 mls @ 100 mls/ hr 05/24/20 18:04 05/26/20 18:05 Sodium Chloride IV 100 mls/hr Q24H SHAY Administration Protocol Dextrose 500 mls @ 100 mls /hr 05/24/20 18:04 D5w IV ONCE PRN Adult Acute Hypog lycemia Prot Protocol Insulin Aspart 0 unit 05/24/20 18:04 05/27/20 11:24 Insulin Aspart 1 00 Unit/1 Ml SUBCUT Not Given WM&BEDTIME SHAY Protocol Metoclopramide HCl 10 mg 05/24/20 18:04 05/27/20 12:29 Metoclopramide 5 Mg/Ml Sdv 2 Ml IVP 10 mg Q6H SHAY Administration Morphine Sulfate 2 mg 05/24/20 18:04 05/27/20 08:35 Morphine 4 Mg/Ml Sdv 1 Ml IVP 2 mg Q4H PRN Administration SEVERE PAIN Ondansetron HCl 4 mg 05/24/20 18:04 05/27/20 08:38 Ondansetron 2 Mg /Ml Sdv 2 Ml IVP 4 mg Q6H PRN Administration NAUSEA AND VOMITI NG No Known Allergies Allergy (Verified 03/22/20 13:47) Vitals/I&O/Wt Last Vital Signs Temp 98.5 F 05/27/20 11:20 Pulse 68 05/27/20 11:20 Resp 18 05/27/20 11:20 BP 131/87 05/27/20 11:20 Pulse Ox 98 05/27/20 11:20 05/26/20 05/27/20 05/27/20 22:59 06:59 14:59 Intake Total 1420 / 1810 840 / 840 Output Total 600 / 600 Balance 820 / 1210 840 / 840 Weight last 48 hrs Weight 66.877 kg Weight 66.905 kg Physical Exam Const: COMMON NORMALS: no acute distress, patient oriented x3 and alert GENERAL APPEARANCE: cooperative and comfortable ORIENTATION/CONSCIOUSNESS: Yes awake OTHER: -in good spirits, resting in bed HENMT: COMMON NORMALS: normocephalic, atraumatic, hearing grossly normal bilaterally and moist oral mucous membranes HEAD & SCALP: normocephalic and atraumatic MOUTH: moist mucous membranes abnormal Details: parched Eye: COMMON NORMALS: Equal, round and reactive pupils present, EOMs intact bilaterally and conjunctivae normal CONJUNCTIVA: Yes conjunctivae normal PUPIL: Yes Equal, round and reactive pupils present Neck/C-Spine: COMMON NORMALS: full ROM GENERAL: Yes normal visual inspection and Yes trachea midline Resp: COMMON NORMALS: normal respiratory effort, No retractions, No use of accessory muscles and clear to auscultation bilaterally EFFORT & INSPECTION: Yes able to speak in complete sentences, Yes symmetric chest movement and Yes tachypneic AUSCULTATION: clear to auscultation bilaterally OTHER: -on RA Cardio: COMMON NORMALS: regular rate, regular rhythm, S1 normal heart sound present, S2 normal heart sound present and No murmurs present (Cardio) RATE: regular rate RHYTHM: regular rhythm HEART SOUNDS: S1 normal heart sound present and S2 normal heart sound present GI: COMMON NORMALS: Normal to inspection, nondistended, normoactive bowel sounds present and Soft to palpation PALPATION: Yes Soft to palpation and Yes Tenderness to palpation present (GI) (generalized) : BLADDER/KIDNEY EXAM: Yes CVA tenderness Back/Pelvis: GENERAL BACK: Yes CVA tenderness CVA tenderness: left Extremity: COMMON NORMALS: normal to inspection, full ROM and no clubbing, cyanosis or edema; negative for no pedal edema Neuro: COMMON NORMALS: patient oriented x3, moves all extremities, no focal motor deficits, no sensory deficits noted and gait normal SENSORIUM/ORIENTATION: Yes alert Psych: COMMON NORMALS: mental status grossly normal, Normal thought process present, cooperative, normal affect and speech normal SPEECH: Yes normal speech THOUGHT PROCESS: Normal thought process present Skin: COMMON NORMALS: no rashes or lesions noted, no jaundice, no petechiae and no mottling GENERAL SKIN EXAM: no rashes or lesions noted Data : 05/26/20 04:30 05/26/20 04:30 Micro: Microbiology 05/24/20 15:40 Urine Culture - Final Urine,Clean Catch Strep agalactiae - (group b) A&P Assessment and plan (1) Intractable nausea and vomiting: -Patient presents with a 2-week cycle of intractable nausea and vomiting (NBNB), inability to tolerate any oral intake, and inability to take her medications including insulin -Has an underlying history of diabetic gastroparesis secondary to poorly controlled type 1 diabetes mellitus -Aggressive IV fluid hydration, clear liquid diet if tolerated, antiemetics both as needed and scheduled -Has had previous ER visits for similar complaints and was prescribed oral antie metics which she states have not been effective -Clinically appears quite dehydrated hence need for IV fluid hydration -Has had abdominal imaging done at least twice this month, last CT scan was yesterday indicating diffuse bladder wall thickening, no hydronephrosis, bilateral renal cortical scarring likely due to prior pyelonephritis, mild diffuse fatty liver infiltration, right ovarian cyst -UA shows evidence of infection; blood cx prelim negative, urine cx-Strep agalactaie -on Ceftriaxone -on famotidine -continue to monitor urine output -VSS; continue to monitor Status: Acute (2) Diabetic gastroparesis: -likely contributing to pattern of intractable N/V noted above -Previously had normal gastric emptying study in 10/2014; repeat this, potentially as outpatient unless symptoms do not improve in the interim. Status: Acute (3) Cystitis: -UA shows evidence of infection; blood cx prelim negative, urine cx-Strep agalactaie -on Ceftriaxone -mild leukocytosis, afebrile Status: Acute (4) Exposure to severe acute respiratory syndrome coronavirus 2 (SARS-CoV-2): -father, whom she lives with, was just daignosed with COVID-19 infection -rapid COVID-19 test negative; PCR negative -discontinue isolation precautions -does not seem to have much in the way of respiratory symptoms so far Status: Acute (5) Uncontrolled type 1 diabetes mellitus: -very poorly controlled DM type I -A1c improved-9.5 (was previously 16.5) -significant hyperglycemia (BG >500), noted ketonuria and glucosuria, pH indicating alkalosis, +ketonemia, elevated anion gap. Hyperglycemia improved, AG closed -Accucheks, ISS, hypoglycemia precautions, aggressive IVF hydration. Received 15 units of insulin in ED. Hyperglycemia has improved with SC insulin -hold scheduled insulin for now due to poor oral tolerance -has scheduled appointment to establish care with Dr. Ortega (endocrinology) on 06/16 Status: Acute Qualifiers: Glycemic state: with hyperglycemia Qualified Code(s): E10.65 - Type 1 diabetes mellitus with hyperglycemia (6) Diabetic neuropathy associated with type 1 diabetes mellitus: Status: Chronic Qualifiers: Diabetes mellitus complication detail: diabetic polyneuropathy Qualified Code(s): E10.42 - Type 1 diabetes mellitus with diabetic polyneuropathy Additional A&P Information -anxiety -prior methamphetamine use; UDS negative; last use per her report was about 5 months ago -s/p LLL lobectomy -R ovarian cyst; pelvic US with noted right ovarian lesion likely hemorrhagic cyst -chronic smoker, 1/2 PPD -ERICA, baseline Cr < 1; on IVF, continue to monitor renal function. ERICA resolved -GI ppx with famotidine -DVT ppx with SCDs, noted hematuria, hold AC -Dispo: home -Code status: FULL code Attestations Medical Necessity Statement*: Patient requires hospitalization for continued hydration, management of N/V, pending advancement of oral intake and tolerance. Time Spent in Patient Care: 16 - 35 minutes (>than 50% of time spent in counselling and/or direct pt care on unit) . Coding Level of Care Code Acute Wire Insulator for Chg Fwd Diagnoses Intractable nausea and vomiting R11.2 Diabetic gastroparesis E11.43; K31.84 Cystitis N30.90 Exposure to severe acute respiratory syndrome coronavirus 2 (SARS-CoV-2) Z20.828 Uncontrolled type 1 diabetes mellitus E10.65 Glycemic state: with hyperglycemia Diabetic neuropathy associated with type 1 diabetes mellitus E10.42 Diabetes mellitus complication detail: diabetic polyneuropathy
[2020-05-27 17:19] LABS: Glucose Point of Care 134 mg/dL (70-110)
[2020-05-27] MEDS: cefTRIAXone 1,000 MG in sodium chloride 0.9% (plus) 50 ML 100 MG IV (17:28)
[2020-05-27 21:15] LABS: Glucose Point of Care 259 mg/dL (70-110)
[2020-05-28] VITALS (13 sets, daily range): BP systolic 114–135; BP diastolic 77–94; PULSE 66–81; RESP 16–18; TEMP 36.4–37; O2SAT 96–98
[2020-05-28] MEDS: metoclopramide 5 mg/mL SDV 2 mL 10 MG IVP ×3 (00:32→11:03)
[2020-05-28] MEDS: morphine 4 mg/mL SDV 1 mL 2 MG IVP ×4 (00:32→18:13)
[2020-05-28] MEDS: famotidine 20 mg/2 mL INJ IVP (05:08)
[2020-05-28 06:57] LABS: Glucose Point of Care 208 mg/dL (70-110)
[2020-05-28 11:01] LABS: Glucose Point of Care 179 mg/dL (70-110)
--- NOTE | 2020-05-28 11:43 | P.PN_ITS ---
Subjective Subjective: Interval history: Tolerating oral intake well, afebrile, hemodynamically stable. Had increased pain particularly in the left flank and CVA area overnight and has noticed that she is voiding less. Has consistently been on IV antibiotics and has been hydrating orally appropriately. Will repeat UA and CT scan of the abdomen and pelvis without contrast. Medications: Reviewed: Yes Medication Review Details: Active Medications Generic Name Dose Route Start Last Admin Trade Name Freq PRN Reason Stop Dose Admin Acetaminophen 650 mg 05/24/20 18:04 Acetaminophen 32 5 Mg Tablet PO Q6H PRN Mild/Mod Pain Or Temp >/= 101 Dextrose 25 ml 05/24/20 18:04 Dextrose 50% Syr patricia 50 Ml IVP ONCE PRN hypoglycemia prot ocol Protocol Dextrose 50 ml 05/24/20 18:04 Dextrose 50% Syr patricia 50 Ml IVP PRN PRN hypoglycemia prot ocol Protocol Famotidine 20 mg 05/28/20 18:00 Famotidine 20 Mg Tablet PO BID SHAY Glucagon 1 mg 05/24/20 18:04 Glucagon 1 Mg/Ml Inj 1 Ml IM ONCE PRN Adult Acute Hypog lycemia Prot. Protocol Ceftriaxone Sodium 1,000 mg/ 50 mls @ 100 mls/ hr 05/24/20 18:04 05/27/20 17:28 Sodium Chloride IV 100 mls/hr Q24H SHAY Administration Protocol Dextrose 500 mls @ 100 mls /hr 05/24/20 18:04 D5w IV ONCE PRN Adult Acute Hypog lycemia Prot Protocol Insulin Aspart 0 unit 05/24/20 18:04 05/28/20 11:17 Insulin Aspart 1 00 Unit/1 Ml SUBCUT 4 unit WM&BEDTIME SHAY Administration Protocol Metoclopramide HCl 10 mg 05/28/20 17:00 Metoclopramide 1 0 Mg Tablet PO AC&BEDTIME SHAY Morphine Sulfate 2 mg 05/24/20 18:04 05/28/20 11:03 Morphine 4 Mg/Ml Sdv 1 Ml IVP 2 mg Q4H PRN Administration SEVERE PAIN Ondansetron HCl 4 mg 05/24/20 18:04 05/27/20 08:38 Ondansetron 2 Mg /Ml Sdv 2 Ml IVP 4 mg Q6H PRN Administration NAUSEA AND VOMITI NG No Known Allergies Allergy (Verified 03/22/20 13:47) Vitals/I&O/Wt Last Vital Signs Temp 98.0 F 05/28/20 11:36 Pulse 66 05/28/20 11:36 Resp 18 05/28/20 11:36 BP 130/85 05/28/20 11:36 Pulse Ox 97 05/28/20 11:36 05/27/20 05/28/20 05/28/20 22:59 06:59 14:59 Intake Total 240 / 1080 240 / 240 Balance 240 / 1080 240 / 240 Weight last 48 hrs Weight 65.998 kg Weight 66.877 kg Physical Exam Const: COMMON NORMALS: no acute distress, patient oriented x3 and alert GENERAL APPEARANCE: cooperative and comfortable ORIENTATION/CONSCIOUSNESS: Yes awake OTHER: -in good spirits, resting in bed HENMT: COMMON NORMALS: normocephalic, atraumatic, hearing grossly normal bilaterally and moist oral mucous membranes HEAD & SCALP: normocephalic and atraumatic MOUTH: moist mucous membranes abnormal Details: parched Eye: COMMON NORMALS: Equal, round and reactive pupils present, EOMs intact bilaterally and conjunctivae normal CONJUNCTIVA: Yes conjunctivae normal PUPIL: Yes Equal, round and reactive pupils present Neck/C-Spine: COMMON NORMALS: full ROM GENERAL: Yes normal visual inspection and Yes trachea midline Resp: COMMON NORMALS: normal respiratory effort, No retractions, No use of accessory muscles and clear to auscultation bilaterally EFFORT & INSPECTION: Yes able to speak in complete sentences, Yes symmetric chest movement and Yes tachypneic AUSCULTATION: clear to auscultation bilaterally OTHER: -on RA Cardio: COMMON NORMALS: regular rate, regular rhythm, S1 normal heart sound present, S2 normal heart sound present and No murmurs present (Cardio) RATE: regular rate RHYTHM: regular rhythm HEART SOUNDS: S1 normal heart sound present and S2 normal heart sound present GI: COMMON NORMALS: Normal to inspection, nondistended, normoactive bowel sounds present and Soft to palpation PALPATION: Yes Soft to palpation : BLADDER/KIDNEY EXAM: Yes CVA tenderness Back/Pelvis: GENERAL BACK: Yes CVA tenderness CVA tenderness: left Extremity: COMMON NORMALS: normal to inspection, full ROM and no clubbing, cyanosis or edema; negative for no pedal edema Neuro: COMMON NORMALS: patient oriented x3, moves all extremities, no focal motor deficits, no sensory deficits noted and gait normal SENSORIUM/ORIENTATION: Yes alert Psych: COMMON NORMALS: mental status grossly normal, Normal thought process present, cooperative, normal affect and speech normal SPEECH: Yes normal speech THOUGHT PROCESS: Normal thought process present Skin: COMMON NORMALS: no rashes or lesions noted, no jaundice, no petechiae and no mottling GENERAL SKIN EXAM: no rashes or lesions noted Data : 05/26/20 04:30 05/26/20 04:30 Micro: Microbiology 05/24/20 15:40 Urine Culture - Final Urine,Clean Catch Strep agalactiae - (group b) A&P Assessment and plan (1) Cystitis: -UA shows evidence of infection; blood cx prelim negative, urine cx-Strep agalactaie -on Ceftriaxone; plan to d/c on cefuroxime -resolved leukocytosis, afebrile -UA has evidence of hematuria; repeat UA -in light of continued L CVA tenderness, oliguria, hematuria; will re-evaluate for nephrolithiasis and hydronephrosis with non-contrast CT A/P. She previously had a contrast CT on 05/23 with noted diffuse bladder wall thickening but no hydronephrosis, bilateral renal cortical scarring likely due to prior pyelonephritis, mild diffuse fatty liver infiltration, right ovarian cyst Status: Acute (2) Intractable nausea and vomiting: -Patient presented with a 2-week cycle of intractable nausea and vomiting (NBNB), inability to tolerate any oral intake, and inability to take her m edications including insulin -Has an underlying history of diabetic gastroparesis secondary to poorly controlled type 1 diabetes mellitus -now able to tolerate GI soft diet, hydrating orally -on scheduled and PRN antiemetics -on famotidine -continue to monitor urine output -VSS; continue to monitor Status: Resolved (3) Diabetic gastroparesis: -likely contributing to pattern of intractable N/V noted above -Previously had normal gastric emptying study in 10/2014; repeat this, potentially as outpatient unless symptoms do not improve in the interim. -doing well with scheduled reglan Status: Chronic (4) Exposure to severe acute respiratory syndrome coronavirus 2 (SARS-CoV-2): -father, whom she lives with, was just daignosed with COVID-19 infection -rapid COVID-19 test negative; PCR negative -off isolation precautions -does not seem to have much in the way of respiratory symptoms so far Status: Resolved (5) Uncontrolled type 1 diabetes mellitus: -very poorly controlled DM type I -A1c improved-9.5 (was previously 16.5) -significant hyperglycemia (BG >500), noted ketonuria and glucosuria, pH indicating alkalosis, +ketonemia, elevated anion gap. Hyperglycemia improved, AG closed -Accucheks, ISS, hypoglycemia precautions, aggressive IVF hydration. Received 15 units of insulin in ED. Hyperglycemia has improved with SC insulin -hold scheduled insulin for now due to poor oral tolerance -has scheduled appointment to establish care with Dr. Ortega (endocrinology) on 06/16 Status: Acute Qualifiers: Glycemic state: with hyperglycemia Qualified Code(s): E10.65 - Type 1 diabetes mellitus with hyperglycemia (6) Diabetic neuropathy associated with type 1 diabetes mellitus: Status: Chronic Qualifiers: Diabetes mellitus complication detail: diabetic polyneuropathy Qualified Code(s): E10.42 - Type 1 diabetes mellitus with diabetic polyneuropathy Additional A&P Information -anxiety -prior methamphetamine use; UDS negative; last use per her report was about 5 months ago -s/p LLL lobectomy -R ovarian cyst; pelvic US with noted right ovarian lesion likely hemorrhagic cyst -chronic smoker, 1/2 PPD -ERICA, baseline Cr < 1; on IVF, continue to monitor renal function. ERICA resolved -GI ppx with famotidine -DVT ppx with SCDs, noted hematuria, hold AC -Dispo: home -Code status: FULL code Attestations Medical Necessity Statement*: Patient requires hospitalization for continued treatment of UTI, on IV antibiotics, needs repeat imaging and repeat UA in light of continued CVA tenderness. Time Spent in Patient Care: 16 - 35 minutes (>than 50% of time spent in counselling and/or direct pt care on unit) . 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
--- NOTE | 2020-05-28 15:00 | CTR_ITS ---
PROCEDURE INFORMATION: Exam: CT Abdomen And Pelvis Without Contrast Exam date and time: 05/28/2020 4:44 PM Age: 34 years old Clinical indication: Abdominal pain; Left; Prior surgery; Surgery type: Gb; Patient HX: C/O L flank pain and hematuria; Additional info: CVA tenderness (l), oliguria, hematuria TECHNIQUE: Imaging protocol: Computed tomography of the abdomen and pelvis without contrast. Radiation optimization: All CT scans at this facility use at least one of these dose optimization techniques: automated exposure control; mA and/or kV adjustment per patient size (includes targeted exams where dose is matched to clinical indication); or iterative reconstruction. COMPARISON: CT abdomen pelvis w con* [id number] 05/23/2020 12:21 PM RADIATION DOSE METRICS: Total DLP (mGy-cm): 958.28 FINDINGS: Lungs: 11 mm nodule at the right lung base with central calcification, likely representing a granuloma. Mild fibrosis at the lung bases. Liver: The liver is unremarkable in appearance. Gallbladder and bile ducts: The gallbladder is surgically absent. No biliary dilatation. Pancreas: The pancreas is normal in appearance. No pancreatic duct dilatation. Spleen: The spleen is normal in size and appearance. Adrenal glands: The adrenal glands appear within normal limits. Kidneys and ureters: Cortical scarring and atrophy of the lower pole of the left kidney. The right kidney is morphologically normal. No nephrolithiasis or hydronephrosis. No solid renal masses. Stomach and bowel: Stomach is distended with ingested material. Click normal small bowel moderate retained stool in the colon. No acute abnormality of the colon. Appendix: The appendix is normal in appearance. No evidence of appendicitis. Intraperitoneal space: No pneumoperitoneum. No significant fluid collection. Vasculature: Minimal atherosclerosis of the abdominal aorta. No aneurysm. Lymph nodes: No pathologically enlarged lymph nodes are demonstrated. Urinary bladder: Urinary bladder is only partially distended. Mural thickening of the bladder is likely secondary to underdistention. Reproductive: 5.2 cm right ovarian cyst, likely physiologic. Uterus and left ovary are unremarkable. Bones/joints: Bilateral L5 spondylolysis. Minimal grade 1 spondylolisthesis. No degeneration of the L5-S1 disc. Soft tissues: Unremarkable. CT/CT kidney stone [id number] IMPRESSION: 1. 11 mm nodule at the right lung base with central calcification, likely representing a granuloma. This is unchanged. 2. Cortical scarring and atrophy of the lower pole of the left kidney. The right kidney is morphologically normal. No nephrolithiasis or hydronephrosis. No solid renal masses. 3. Urinary bladder is only partially distended. Mural thickening of the bladder is likely secondary to underdistention. Cystitis, however, is not excluded. 4. 5.2 cm right ovarian cyst, likely physiologic. No follow-up required. 5. No acute abnormality demonstrated in the abdomen and pelvis. 6. There is no interval change from the prior examination. Radiation Dose CTDIVOL = (mGy): DLP = 958.28 (mGy-cm)
[2020-05-28] MEDS: ketorolac 30 mg/mL INJ 15 MG IVP ×2 (15:41→22:15)
[2020-05-28 17:06] LABS: Glucose Point of Care 265 mg/dL (70-110)
[2020-05-28] MEDS: metoclopramide 10 mg Tablet PO ×2 (18:00→21:37)
[2020-05-28] MEDS: famotidine 20 mg Tablet PO (18:00)
[2020-05-28] MEDS: cefTRIAXone 1,000 MG in sodium chloride 0.9% (plus) 50 ML 100 MG IV (18:00)
[2020-05-28 21:14] LABS: Glucose Point of Care 218 mg/dL (70-110)
[2020-05-28 21:16] LABS: Add Urine Microscopic? YES; Bilirubin Urine Neg (Negative); Blood Urine Neg (Negative); Glucose Urine UA 4+ (Normal); Ketones Urine Negative (Negative); Leukocyte Esterase Urine Negative (Negative); Nitrate Urine Positive (Negative); Protein Urine Neg (Negative); Urine Appearance Cloudy (CLEAR); Urine Color Yellow (Yellow); Urobilinogen Urine Norm (Negative); pH Urine 7 (5-7)
[2020-05-28 22:22] LABS: Add Urine Culture? No; Bacteria Urine 1+ /hpf; Squamous Epithelial Cell Urine 25-40 /hpf (0-5)
[2020-05-29] VITALS (7 sets, daily range): BP systolic 141–147; BP diastolic 88–92; PULSE 68–76; RESP 16–18; TEMP 36.6–36.9; O2SAT 97–98
[2020-05-29] MEDS: morphine 4 mg/mL SDV 1 mL 2 MG IVP ×2 (04:39→09:13)
[2020-05-29 06:42] LABS: Basophils # 0.1 10^3/uL (0.0-0.1); Basophils % 0.8 %; Eosinophils # 0.2 10^3/uL (0.0-0.8); Eosinophils % 3.7 %; Hematocrit 61.8 % (37.0-47.0); Hemoglobin 21.9 g/dL (11.5-15.3); Lymphocytes # 2.3 10^3/uL (0.8-4.8); Lymphocytes % 34.2 %; Mean Corpuscular HGB Conc 35.4 g/dL (30.0-36.0); Mean Corpuscular Hemoglobin 28.7 pg (28.0-34.0); Mean Corpuscular Volume 80.9 fL (81-99); Mean Platelet Volume 12.2 fL (7.4-10.4); Monocytes # 0.6 10^3/uL (0.2-0.9); Monocytes % 9.1 %; Neutrophils # 3.42 10^3/uL (1.8-7.7); Nucleated Red Blood Cells % 0 %; Platelet Count 97 10^3/cmm (130-400); Red Blood Count 7.64 10^6/uL (4.1-5.3); Red Cell Distribution Width 11.9 % (12.1-15.1); White Blood Count 6.6 10^3/uL (4.0-10.0)
[2020-05-29 06:52] LABS: Glucose Point of Care 297 mg/dL (70-110)
[2020-05-29] MEDS: famotidine 20 mg Tablet PO (07:59)
[2020-05-29] MEDS: metoclopramide 10 mg Tablet PO ×2 (07:59→11:32)
[2020-05-29 08:40] LABS: Anion Gap 9.3 (5-19); Blood Urea Nitrogen 10 mg/dL (6-20); Calcium 7.8 mg/dL (8.5-10.5); Carbon Dioxide 25 mmol/L (22-29); Chloride 105 mmol/L (98-107); Glomerular Filtration Rate 96.4 mL/min (90-130); Glucose 309 mg/dL (65-115); Osmolality Calculated 291 mOsm/kg (285-295); Potassium 4.3 mmol/L (3.5-5.1); Sodium 135 mmol/L (136-145)
--- NOTE | 2020-05-29 10:45 | PC.CHAP ---
Pastoral Care Encounter/Spiritual Assessment Type of Contact [] Declined assembler lay ups visit [] Patient/Family/Request visit [] Outpatient visit [] Follow-up visit [] Physician referral [] Code/Alert [X] Routine visit [] Staff referral [] Actively dying [] Patient sleeping [] Family support [] [] Out of room [] Palliative care [] [] Receiving care in room [] Pre-surgical visit [] Trauma [] Long length of stay [] ICU visit [] Other: Relational/Emotional Strength [X] Patient feels connected with others/family/visitors/staff [] Distress [] Loneliness/isolation [] Abandonment Spirituality of Patient [] Person of Marly [] Attends Yazidi of their [place] [X] Believes in Prayer [] Reads Bible or Jewish materials [] There are Spiritual issues to be addressed Automobile Locator Interventions [X] Prayer [X] Active listening [X] Non-anxious presence [] Spiritual/emotional support [] Crisis/trauma care [] Spiritual counseling [] Bereavement support [] Provided bereavement packet [] Provided Bible/devotional materials [] Provided toy/stuffed animal, coloring book to patient or family member [] Provided Communion [] Anointing/[place] [] Salvation [X] Completed spiritual assessment [] Other: Impact on Illness or Injury [] Angry [] Fearful [] Anxious [] Often cries [] Exhaustion [] Unable to work [] Unable to attend episcopalian [] Unable to walk/stand [] Unable to read [] Unable to drive [] Unable to eat/drink [] Unable to sleep [] Unable to be with family [] Patient intubated [] Other: Summary: Pt lives in a multi-generational household and has chronic health problems. The underlying cause of her symptoms remains unknown. Offered prayer which pt readily accepted. Time spent with patient: 20 mins
[2020-05-29 10:57] LABS: Glucose Point of Care 253 mg/dL (70-110)
[2020-05-29] MEDS: sennosides-docusate Tablet 2 TAB PO (11:31)
[2020-05-29] MEDS: polyethylene glycol 3350 Pkt 17 gm PO (11:31)
--- NOTE | 2020-05-29 13:19 | PM.DCS ---
Discharge Providers Date of Admission: 05/24/20 15:23 Date of Discharge: May 29, 2020 Attending Provider at Admission: Carie Saez MD Attending Provider at Discharge: Carie Saez MD Consults: None Primary Care Provider: SUZANNE Dias Diagnoses at Discharge Discharge Diagnosis (1) Cystitis: Status: Acute Permanent problem details: -UA shows evidence of infection; blood cx prelim negative, urine cx-Strep agalactaie -on Ceftriaxone; plan to d/c on cefuroxime -resolved leukocytosis, afebrile -UA has evidence of hematuria; repeat UA -in light of continued L CVA tenderness, oliguria, hematuria; will re-evaluate for nephrolithiasis and hydronephrosis with non-contrast CT A/P. She previously had a contrast CT on 05/23 with noted diffuse bladder wall thickening but no hydronephrosis, bilateral renal cortical scarring likely due to prior pyelonephritis, mild diffuse fatty liver infiltration, right ovarian cyst -repeat imaging unchanged (2) Intractable nausea and vomiting: Status: Resolved Permanent problem details: -tolerating oral intake -continue scheduled Reglan and Zofran PRN (3) Diabetic gastroparesis: Status: Chronic Permanent problem details: -continue Reglan (4) Exposure to severe acute respiratory syndrome coronavirus 2 (SARS-CoV-2): Status: Resolved Permanent problem details: -COVID-19 negative (PCR) (5) Uncontrolled type 1 diabetes mellitus: Status: Chronic Permanent problem details: -very poorly controlled DM type I -A1c improved-9.5 (was previously 16.5) -significant hyperglycemia (BG >500), noted ketonuria and glucosuria, pH indicating alkalosis, +ketonemia, elevated anion gap. Hyperglycemia improved, AG closed -Accucheks, ISS, hypoglycemia precautions, aggressive IVF hydration. Received 15 units of insulin in ED. Hyperglycemia has improved with SC insulin -hold scheduled insulin for now due to poor oral tolerance -has scheduled appointment to establish care with Dr. Ortega (endocrinology) on 06/16 Qualifiers: Glycemic state: with hyperglycemia Qualified Code(s): E10.65 - Type 1 diabetes mellitus with hyperglycemia (6) Diabetic neuropathy associated with type 1 diabetes mellitus: Status: Chronic Qualifiers: Diabetes mellitus complication detail: diabetic polyneuropathy Qualified Code(s): E10.42 - Type 1 diabetes mellitus with diabetic polyneuropathy Other Information Additional DC diagnoses/information: -anxiety -prior methamphetamine use; UDS negative; last use per her report was about 5 months ago -s/p LLL lobectomy -R ovarian cyst; pelvic US with noted right ovarian lesion likely hemorrhagic cyst -chronic smoker, 1/2 PPD -ERICA, baseline Cr < 1; on IVF, continue to monitor renal function. ERICA resolved Reason for Visit Reason for Visit: N/V, ABD PAIN, COVID SYMPTOMS Hospital Course Hospital Course Patient was admitted to the medical surgical floor and started on IV fluid hydration, antiemetics, both scheduled and as needed due to noted intractable nausea and vomiting and clinically evident dehydration. She was initially unable to tolerate much in the way of oral intake but with continued hydration she was able to tolerate at least clear liquid diet initially. Further work-up yielded evidence of UTI so she was started on IV antibiotic therapy, with urine cultures growing group B strep agalactiae and blood cultures being negative. She has consistently been hemodynamically stable, afebrile and maintained on room air. She had known exposure to individuals who tested positive for COVID-19 so she was tested as well, placed on isolation precautions, PCR testing was negative so isolation precautions were discontinued. Due to limited oral intake she was not on scheduled insulin but was maintained on a sliding scale due to her underlying history of type 1 diabetes. Diet was advanced as tolerated and so far she has been doing well in a GI soft diet for about 48 hours. Nausea and vomiting have resolved, she had had some abdominal discomfort initially which has also resolved. She has had intermittent left CVA tenderness prompted repeat CT scan to rule out nephrolithiasis or hydronephrosis particularly in light of noted hematuria. Repeat CT scan was unremarkable for either of these etiologies. She will need continued antibiotic therapy to complete her treatment course for UTI and will be referred to Dr. Rubio for further evaluation given her history of recurrent UTIs and persistent left CVA tenderness. She is to resume her insulin regimen now that she is tolerating more consistent oral intake. She will be continued on antiemetics both scheduled and as needed due to underlying history of gastroparesis secondary to diabetes. She is advised to continue oral hydration to seek medical attention immediately should she develop inability to tolerate oral intake, fever/chills, worsening flank pain, dysuria, hematuria. She is scheduled to establish care with Dr. Ortega and is encouraged to keep her appointment. She needs to continue to monitor her blood glucose at home and keep a log for review with her regular provider. She feels well enough to go home today. Physical Exam Const: COMMON NORMALS: no acute distress, patient oriented x3 and alert GENERAL APPEARANCE: cooperative and comfortable ORIENTATION/CONSCIOUSNESS: Yes awake OTHER: -in good spirits, resting in bed HENMT: COMMON NORMALS: normocephalic, atraumatic, hearing grossly normal bilaterally and moist oral mucous membranes HEAD & SCALP: normocephalic and atraumatic MOUTH: moist mucous membranes abnormal Details: parched Eye: COMMON NORMALS: Equal, round and reactive pupils present, EOMs intact bilaterally and conjunctivae normal CONJUNCTIVA: Yes conjunctivae normal PUPIL: Yes Equal, round and reactive pupils present Neck/C-Spine: COMMON NORMALS: full ROM GENERAL: Yes normal visual inspection and Yes trachea midline Resp: COMMON NORMALS: normal respiratory effort, No retractions, No use of accessory muscles and clear to auscultation bilaterally EFFORT & INSPECTION: Yes able to speak in complete sentences, Yes symmetric chest movement and Yes tachypneic AUSCULTATION: clear to auscultation bilaterally OTHER: -on RA Cardio: COMMON NORMALS: regular rate, regular rhythm, S1 normal heart sound present, S2 normal heart sound present and No murmurs present (Cardio) RATE: regular rate RHYTHM: regular rhythm HEART SOUNDS: S1 normal heart sound present and S2 normal heart sound present GI: COMMON NORMALS: Normal to inspection, nondistended, normoactive bowel sounds present and Soft to palpation PALPATION: Yes Soft to palpation : BLADDER/KIDNEY EXAM: Yes CVA tenderness Back/Pelvis: GENERAL BACK: Yes CVA tenderness CVA tenderness: left Extremity: COMMON NORMALS: normal to inspection, full ROM and no clubbing, cyanosis or edema; negative for no pedal edema Neuro: COMMON NORMALS: patient oriented x3, moves all extremities, no focal motor deficits, no sensory deficits noted and gait normal SENSORIUM/ORIENTATION: Yes alert Psych: COMMON NORMALS: mental status grossly normal, Normal thought process present, cooperative, normal affect and speech normal SPEECH: Yes normal speech THOUGHT PROCESS: Normal thought process present Skin: COMMON NORMALS: no rashes or lesions noted, no jaundice, no petechiae and no mottling GENERAL SKIN EXAM: no rashes or lesions noted Discharge Data Data Completed and Pending: Completed Studies During Hospitalization Category Date Time Status CT kidney stone [id number] Routine Cat Scan 05/28/20 15:00 Completed XR chest 1V maria luz ble [id number] Stat Exams 05/24/20 13:37 Completed US pelvic with tr ansvaginal Routine Ultrasound 05/26/20 07:00 Completed Pending at discharge Category Date Time Status Blood Culture Sta t Lab 05/24/20 18:44 Results Labs from last 24 hours 05/29/20 05/29/20 05/29/20 10:46 08:03 06:48 WBC RBC Hgb Hct MCV MCH MCHC RDW Plt Count MPV Neut % (Auto) Lymph % (Auto) [place] % (Auto) Eos % (Auto) Baso % (Auto) Neut # (Auto) Lymph # (Auto) [place] # (Auto) Eos # (Auto) Baso # (Auto) Nucleated RBC % (a uto) Nucleated RBCs # Sodium 135 L Potassium 4.3 Chloride 105 Carbon Dioxide 25 Anion Gap 9.3 BUN 10 Creatinine 0.7 GFR Calculation 96.4 Glucose 309 H POC Glucose 253 297 Calculated Osmolal ity 291 Calcium 7.8 L Urine Color Urine Appearance Urine pH Ur Specific Gravit y Urine Protein Urine Glucose (UA) Urine Ketones Urine Blood Urine Nitrate Urine Bilirubin Urine Urobilinogen Ur Leukocyte Denise ase Urine RBC Urine WBC Ur Squamous Epith Cells Ur Transition Epit h Cell Amorphous Sediment Urine Bacteria Urine Yeast 05/29/20 05/29/20 05/28/20 05:08 05:08 21:05 WBC 6.6 RBC 7.64 H Hgb 21.9 H Hct 61.8 H MCV 80.9 L MCH 28.7 MCHC 35.4 RDW 11.9 L Plt Count 97 L MPV 12.2 H Neut % (Auto) 52.0 Lymph % (Auto) 34.2 [place] % (Auto) 9.1 Eos % (Auto) 3.7 Baso % (Auto) 0.8 Neut # (Auto) 3.42 Lymph # (Auto) 2.3 [place] # (Auto) 0.6 Eos # (Auto) 0.2 Baso # (Auto) 0.1 Nucleated RBC % (a uto) 0 Nucleated RBCs # 0.0 Sodium Cancelled Potassium Cancelled Chloride Cancelled Carbon Dioxide Cancelled Anion Gap Cancelled BUN Cancelled Creatinine Cancelled GFR Calculation Cancelled Glucose Cancelled POC Glucose 218 Calculated Osmolal ity Cancelled Calcium Cancelled Urine Color Urine Appearance Urine pH Ur Specific Gravit y Urine Protein Urine Glucose (UA) Urine Ketones Urine Blood Urine Nitrate Urine Bilirubin Urine Urobilinogen Ur Leukocyte Denise ase Urine RBC Urine WBC Ur Squamous Epith Cells Ur Transition Epit h Cell Amorphous Sediment Urine Bacteria Urine Yeast 05/28/20 05/28/20 20:50 16:52 WBC RBC Hgb Hct MCV MCH MCHC RDW Plt Count MPV Neut % (Auto) Lymph % (Auto) [place] % (Auto) Eos % (Auto) Baso % (Auto) Neut # (Auto) Lymph # (Auto) [place] # (Auto) Eos # (Auto) Baso # (Auto) Nucleated RBC % (a uto) Nucleated RBCs # Sodium Potassium Chloride Carbon Dioxide Anion Gap BUN Creatinine GFR Calculation Glucose POC Glucose 265 Calculated Osmolal ity Calcium Urine Color Yellow Urine Appearance Cloudy Urine pH 7 Ur Specific Gravit y 1.010 Urine Protein Neg Urine Glucose (UA) 4+ H Urine Ketones Negative Urine Blood Neg Urine Nitrate Positive H Urine Bilirubin Neg Urine Urobilinogen Norm Ur Leukocyte Denise ase Negative Urine RBC 10-15 H Urine WBC None Ur Squamous Epith Cells 25-40 H Ur Transition Epit h Cell 10-15 Amorphous Sediment Not Reportable Urine Bacteria 1+ H Urine Yeast 2+ H Vitals: Last Vital Signs Temp 98.5 F 05/29/20 11:07 Pulse 73 05/29/20 11:07 Resp 16 05/29/20 11:07 BP 141/89 05/29/20 11:07 Pulse Ox 98 05/29/20 11:07 Discharge Plan Discharge Patient Disposition: Home Condition: Stable Prescriptions: New polyethylene glycol 3350 17 gram Powder In Packet 17 g PO DAILY Qty: 30 RF: 0 sennosides-docusate sodium 8.6-50 mg Tablet 1 tab PO BID Qty: 60 RF: 0 cefuroxime axetil 500 mg tablet 500 mg PO BID 7 Days Qty: 14 RF: 0 Continued lansoprazole [Prevacid] 30 mg capsule,delayed release(DR/EC) 30 mg PO DAILY Qty: 30 RF: 0 insulin lispro [Humalog KwikPen Insulin] 100 unit/mL Insulin Pen See Rx Instructions .ROUTE .COMPLEX RF: 0 Lantus Solostar U-100 Insulin 100 unit/mL (3 mL) Insulin Pen 50 unit SUBCUT BID RF: 0 Zofran 4 mg tablet 4 mg PO Q6H PRN (Reason: nausea and vomiting) Qty: 30 RF: 0 Reglan 10 mg tablet 10 mg PO Q6H 7 Days Qty: 28 RF: 0 Discontinued ondansetron HCl [Zofran] 4 mg tablet 4 mg PO Q8H Qty: 15 RF: 0 Hold Instructions: Resume on 05/30/20. acetaminophen [Tylenol Extra Strength] 500 mg Tablet 500 - 1,000 mg PO Q6H PRN (Reason: Pain) RF: 0 Discharge Orders: Discharge Order (Routine); Ordered 05/29/20 Ordered By: Carie Saez Referrals: Elizabeth Dougherty FNP [Primary Care Provider] - 4-7 days Jimmy Rubio MD [Physician] - 2 weeks (Recurrent UTI, persistent L CVA tenderness) Discharge Diet: Advance as tolerated and Diabetic Discharge Activity: Increase activity as tolerated Discharge Attestations Time Spent in Discharge Care*: greater than 30 min Specific Discharge Activities: educating patient, documenting/other paperwork and evaluating patient/reviewing data Status at Discharge: Cognitive status at discharge: cognitively intact, Behavioral status at discharge: cooperative and independent in ADL's, Functional status at discharge: independent ambulation Overall status at discharge: patient is progressing back to baseline Quality Metrics Clinical Quality Measures During this hospital stay, did patient experience: None Coding Level of Care Code 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
--- NOTE | 2020-05-29 15:18 | PC.NURSE ---
pt iv taken out and intact. discharge instructions explained and questions answered. pt taken via wheelchair to ed entrance
== END 2020-05-29 15:19 | disposition home or self-care (01) | DRG 74 ==
LOC: ER 15:29 → MEDSURG 16:12
PROVIDERS: Admitting Provider Family Medicine; Emergency Provider Family Medicine; PCP Nurse Practitioner Family; Visit Provider Family Medicine
DX: E10.43 Type 1 diabetes mellitus with diabetic autonomic (poly)neuropathy (principal); N30.01 Acute cystitis with hematuria; N17.9 Acute kidney failure, unspecified; E10.65 Type 1 diabetes mellitus with hyperglycemia; K31.84 Gastroparesis; Z20.828 Contact with and (suspected) exposure to other viral communicable diseases; F41.9 Anxiety disorder, unspecified; Q07.00 Arnold-Chiari syndrome without spina bifida or hydrocephalus; E10.40 Type 1 diabetes mellitus with diabetic neuropathy, unspecified; I10 Essential (primary) hypertension; K76.0 Fatty (change of) liver, not elsewhere classified; Z87.442 Personal history of urinary calculi; Z90.2 Acquired absence of lung [part of]; F17.210 Nicotine dependence, cigarettes, uncomplicated; F15.11 Other stimulant abuse, in remission; N83.201 Unspecified ovarian cyst, right side; B95.1 Streptococcus, group B, as the cause of diseases classified elsewhere
CPT/HCPCS: 12345; 36415; 36416; 36600; 71045; 74176; 76830; 76856; 80048; 80051; 80053; 80306; 81001; 82009; 82330; 82805; 82962; 83036; 83605; 85025; 87040; 87086; 87426; 87635; 96372; 96375; 99282; J0696; J1815; J1885; J2270; J2405; J2765; J3490; J7030; J8597

== ENCOUNTER 2020-06-29 12:19 | Emergency (ER) | payer BC, MEDICAID, SELFPAY ==
[2020-06-29 12:43] VITALS: BP 96/66; PULSE 92; RESP 16; TEMP 36.7; O2SAT 98; BMI 25.9
[2020-06-29 12:47] VITALS: BP 98/62; PULSE 107; RESP 16; TEMP 37.1; O2SAT 97
[2020-06-29 13:01] VITALS: BP 92/70; PULSE 82; RESP 16; O2SAT 97
--- NOTE | 2020-06-29 13:01 | CT_ITS ---
WS: [id number] CT HEAD NONCONTRAST HISTORY: worst MUJICA of life TECHNIQUE: Contiguous axial imaging performed through the brain in 2.5 mm imaging. Bone and soft tiss ue windows. Sagittal and coronal reformats reviewed. All CT scans at [facility] use at ast one of these dose optimization techniques: automated exposure control; mA and/or kV adjustment pe r patient size (includes targeted exams where dose is matched to clinical indication); or iterative r econstruction. DLP: 747.15 mGy.cm COMPARISON: 03/15/2020. No acute intracranial hemorrhage, midline shift or mass effect. No atrophy or prior infarcts or herniation. Ventricles: Normal size with no hydrocephalus. Paranasal sinuses: As visualized are clear. Mastoid air cells: Well pneumatized. Calvarium and scalp: Skull is intact with no soft tissue edema or swelling. CT/CT head wo con* [id number] IMPRESSION: Negative head CT.
--- NOTE | 2020-06-29 13:02 | ED_ITS ---
HPI - Headache General: Chief Complaint: Headache Stated Complaint: migraine Time Seen by Provider: 06/29/20 13:01 Source: patient Mode of arrival: ambulatory Limitations: no limitations History of Present Illness: HPI Narrative: Patient is a 34-year-old female who presents to ED today with complaints of a headache that began several hours ago gradually. Patient tells me she suffers from migraine headaches but states this is the worst headache she has ever had. She states she is having nausea without vomiting, blurry vision, and sensitivity to light and sound. She states this headache varies from her normal migraines in the position in severity. No injury or trauma. She denies neck pain or stiff neck. No fevers. No neurological symptoms. MD elicited complaint: headache and migraine Severity: severe Pain scale (0-10): 10 Exacerbating factors: light and noise Associated symptoms: Deny chest pain, confusion, fever(s), lightheadedness, malaise, nausea, rash, syncope or vomiting Review of Systems Const: Denies: fever(s), chills, body aches, fatigue or malaise Eyes: Reports: blurry vision and photophobia; Denies: eye discomfort, floaters or seeing flashes ENMT: Denies: odynophagia Card: Denies: chest pain, palpitations, irregular heart rhythm, lightheadedness, syncope or dyspnea on exertion Resp: Denies: dyspnea, productive cough or pain on inspiration GI: Denies: abdominal pain, nausea, vomiting, heartburn or diarrhea : Denies: flank pain, difficulty voiding, dysuria, urinary frequency or urinary urgency Musc: Denies: neck pain, back pain, extremity pain, extremity swelling, joint pain or joint swelling Skin/Breast: Denies: rash Neuro: Reports: headache(s); Denies: numbness in extremities, weakness in extremities, sensory changes, difficulty walking, dizziness, vertigo, confusion, Slurred speech present, difficulty communicating thoughts or seizure-like activity [facility] ED PFSH: Medical History (Updated 06/29/20 @ 14:25 by LORE Corona) Anxiety Arnold-Chiari malformation Chronic headache Diabetic gastroparesis -continue Reglan Diabetic neuropathy associated with type 1 diabetes mellitus DKA (diabetic ketoacidoses) Exposure to severe acute respiratory syndrome coronavirus 2 (SARS-CoV-2) -COVID-19 negative (PCR) HTN (hypertension) Hyperglycemia Lymphadenitis Migraine headache Non-alcoholic fatty liver disease Pancreatitis PID (pelvic inflammatory disease) Pleural effusion 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 Pyelonephritis Respiratory failure Sepsis Type 1 diabetes mellitus Uncontrolled type 1 diabetes mellitus -very poorly controlled DM type I -A1c improved-9.5 (was previously 16.5) -significant hyperglycemia (BG >500), noted ketonuria and glucosuria, pH indicating alkalosis, +ketonemia, elevated anion gap. Hyperglycemia improved, AG closed -Accucheks, ISS, hypoglycemia precautions, aggressive IVF hydration. Received 15 units of insulin in ED. Hyperglycemia has improved with SC insulin -hold scheduled insulin for now due to poor oral tolerance -has scheduled appointment to establish care with Dr. Ortega (endocrinology) on 06/16 Ureterolithiasis Surgical History (Updated 05/24/20 @ 17:24 by Carie Saez MD) History of cholecystectomy History of endoscopy History of lung surgery -s/p LLL lobectomy secondary to cavitary pneumonia (2017) Family History (Updated 05/24/20 @ 17:23 by Carie Saez MD) Grandfather Diabetes Social History (Updated 06/29/20 @ 12:47 by Jaime Garcia RN) Smoking and tobacco status: current every day smoker cigarettes Packs smoked per day: 0.5 Alcohol intake: never Substance/Drug Use: never Household members: spouse Housing: House Female Reproductive History: Date of last menstrual period: 06/29/20 Physical Exam Const: COMMON NORMALS: average body habitus, patient oriented x3, no limitations, healthy appearing, alert and well nourished GENERAL APPEARANCE: cooperative and in distress (mild-pain from MUJICA) ORIENTATION/CONSCIOUSNESS: Yes oriented to person, Yes oriented to place and Yes oriented to time HENMT: COMMON NORMALS: normocephalic and atraumatic HEAD & SCALP: normocephalic and atraumatic Eye: COMMON NORMALS: Equal, round and reactive pupils present and EOMs intact bilaterally GENERAL EYE: appearance normal, both eyes and all related structures PUPIL: Yes Equal, round and reactive pupils present Neck/C-Spine: COMMON NORMALS: full ROM, no lymphadenopathy and no meningeal signs Resp: COMMON NORMALS: normal respiratory effort EFFORT & INSPECTION: Yes able to speak in complete sentences Cardio: COMMON NORMALS: regular rate and regular rhythm RATE: regular rate RHYTHM: regular rhythm Neuro: JEET COMA SCALE: document GCS findings Wever coma scale eye opening: Spontaneous Wever coma scale verbal response: Orientated Jeet coma scale motor response: Obey commands Jeet coma scale total score: 15 COMMON NORMALS: patient oriented x3, CN's II-XII intact bilaterally, moves all extremities, no focal motor deficits and no sensory deficits noted SENSORIUM/ORIENTATION: Yes alert, Yes oriented to person, Yes oriented to place and Yes oriented to time MENINGEAL SIGNS: Yes no meningeal signs COORDINATION/BALANCE: [id number] test normal SPEECH: speech normal COORDINATION: [id number] test normal Course Vital Signs: Vital signs: Vital Signs Temperature 98.7 F 06/29/20 12:47 Pulse Rate 82 06/29/20 14:01 Respiratory Rate 14 06/29/20 14:01 Blood Pressure 92/70 06/29/20 14:01 Pulse Oximetry 99 06/29/20 14:01 MDM - Headache MDM Narrative: Medical decision making narrative: Patient feels much better after IV medications. She is stating she feels well enough to be discharged. Her head CT is normal. Patient's vital signs are stable. Patient has no evidence for meningitis or other emergent process at this time. Return to ED precautions given. Imaging Data^: CT Head: Radiologist's impression: [place] [address] CT Scan Report Signed Patient: Donita Aguilar #: [id number] : 1985Acct#:[id number] Age/Sex: 34 / FADM Date: 06/29/20 Loc: ERRoom/Bed: Attending Dr: Ordering Provider/Ordering MD: Fany Machado Date of Service: 06/29/20 Procedure(s): CT head wo con* [id number] Accession Number(s): [id number] Report Number: [id number] WS: [id number] CT HEAD NONCONTRAST HISTORY: worst MUJ[place] of life TECHNIQUE: Contiguous axial imaging performed through the brain in 2.5 mm imaging. Bone and soft tissue windows. Sagittal and coronal reformats reviewed. All CT scans at [facility] use at least one of these dose optimization techniques: automated exposure control; mA and/or kV adjustment per patient size (includes targeted exams where dose is matched to clinical indication); or iterative reconstruction. DLP: 747.15 mGy.cm COMPARISON: 03/15/2020. No acute intracranial hemorrhage, midline shift or mass effect. No atrophy or prior infarcts or herniation. Ventricles: Normal size with no hydrocephalus. Paranasal sinuses: As visualized are clear. Mastoid air cells: Well pneumatized. Calvarium and scalp: Skull is intact with no soft tissue edema or swelling. CT/CT head wo con* [id number] IMPRESSION: Negative head CT. Dictated By:Debora Hollis DO Signed By:Debora Hollis DOSigned Date/Time:06/29/20 131 DD/ 15 Discharge Plan Discharge Patient Disposition: Home Clinical Impression: Migraine Qualifiers: Migraine type: without aura Status migrainosus presence: without status migrainosus Intractability: not intractable Qualified Code(s): G43.009 - Migraine without aura, not intractable, without status migrainosus Condition: Stable Prescriptions: No Action lansoprazole [Prevacid] 30 mg capsule,delayed release(DR/EC) 30 mg PO DAILY Qty: 30 RF: 0 insulin lispro [Humalog KwikPen Insulin] 100 unit/mL Insulin Pen See Rx Instructions .ROUTE .COMPLEX RF: 0 Lantus Solostar U-100 Insulin 100 unit/mL (3 mL) Insulin Pen 50 unit SUBCUT BID RF: 0 polyethylene glycol 3350 17 gram Powder In Packet 17 g PO DAILY Qty: 30 RF: 0 sennosides-docusate sodium 8.6-50 mg Tablet 1 tab PO BID Qty: 60 RF: 0 Zofran 4 mg tablet 4 mg PO Q6H PRN (Reason: nausea and vomiting) Qty: 30 RF: 0 Discharge Orders: Discharge ED (Routine); Ordered 06/29/20 Ordered By: Fany Machado Referrals: Elizabeth Dougherty FNP [Primary Care Provider] - Patient Instructions: Headache - Migraine (Adult) Coding Level of Care Code ED Apple Thinner for Chg Fwd Exam Detailed
[2020-06-29] MEDS: ketorolac 60 mg/2 mL INJ 30 MG IVP (13:38)
[2020-06-29] MEDS: ondansetron 2 mg/ML SDV 2 mL 4 MG IVP (13:38)
[2020-06-29] MEDS: diphenhydrAMINE 50 mg/mL SDV 1mL IVP (13:42)
[2020-06-29 14:01] VITALS: BP 92/70; PULSE 82; RESP 14; O2SAT 99
== END 2020-06-29 14:36 | disposition home or self-care (01) ==
PROVIDERS: Emergency Provider Physician Assistant; PCP Nurse Practitioner Family
DX: G43.009 Migraine without aura, not intractable, without status migrainosus (principal); Z79.4 Long term (current) use of insulin; E10.40 Type 1 diabetes mellitus with diabetic neuropathy, unspecified; I10 Essential (primary) hypertension; F17.210 Nicotine dependence, cigarettes, uncomplicated
CPT/HCPCS: 12345; 70450; 96374; 96375; 99283; J1200; J1885; J2405

== ENCOUNTER → 2020-06-30 13:22 | Outpatient (BNVA) | payer BC, MEDICAID, SELFPAY | PROVIDERS: PCP Nurse Practitioner Family; Visit Provider Nurse Practitioner Family | DX: N30.90 Cystitis, unspecified without hematuria (principal) | CPT/HCPCS: 81003; 87086 ==

== ENCOUNTER 2020-07-01 17:04 | Emergency (ER) | payer BC, MEDICAID, SELFPAY ==
[2020-07-01 17:16] VITALS: BP 88/61; PULSE 92; RESP 20; TEMP 36.6; O2SAT 97; BMI 25.9
[2020-07-01 17:26] LABS: Glucose Point of Care 295 mg/dL (70-110)
--- NOTE | 2020-07-01 19:10 | ED_ITS ---
Documented by User: Sy Interiano MD 07/02/20 20:54 HPI - Abdominal Pain General: Chief Complaint: Abdominal Pain Stated Complaint: Dehydrated, N/V, High Sugar Time Seen by Provider: 07/01/20 18:48 History of Present Illness: HPI narrative: The patient is a 34-year-old female with past medical history chronic UTIs and diabetic gastroparesis. She comes to the ER currently being treated for a UTI by her urologist. She says she has had diffuse abdominal pain since yesterday and it worsened today making her vomit a few times. She continues to have urinary cramping as well even though she is on an antibiotic. Denies flank pain MD elicited complaint: abdominal pain Pertinent past history: past UTI Pain Consistency: constant Location: Periumbilical Severity: similar to previous episodes Quality: cramping and sharp Exacerbating factors: eating Relieving factors: nothing Associated Symptoms: Reports dysuria, nausea and vomiting; Denies constipation and diarrhea Related Data: Date of Last Menstrual Period: 06/29/20 Review of Systems General: Reports: 10 or more systems reviewed and unremarkable except in HPI and below Const: Denies: fatigue Eyes: Denies: change in vision, blurry vision or eye redness ENMT: Denies: throat pain, swelling of lips/tongue, ear or mastoid pain or nasal congestion Card: Denies: chest pain, palpitations, irregular heart rhythm, edema, dyspnea on exertion or orthopnea Resp: Denies: dyspnea, productive cough or non-productive cough GI: Reports: nausea and vomiting; Denies: diarrhea or constipation : Reports: dysuria Musc: Denies: neck pain, back pain, extremity pain, joint pain, joint redness, limited range of motion or muscle weakness Skin/Breast: Denies: rash, pruritus, erythema, skin pain or skin tenderness Neuro: Denies: headache(s), numbness in extremities, weakness in extremities, sensory changes, difficulty walking, dizziness, confusion or Slurred speech present Psych: Denies: anxiety or depression Endo: Denies: polyuria All/Imm: Denies: urticaria, throat swelling or tongue swelling PFSH ED PFSH: Medical History (Updated 07/01/20 @ 22:50 by Sy Interiano MD) Anxiety Arnold-Chiari malformation Chronic headache Diabetic gastroparesis -continue Reglan Diabetic neuropathy associated with type 1 diabetes mellitus DKA (diabetic ketoacidoses) Exposure to severe acute respiratory syndrome coronavirus 2 (SARS-CoV-2) -COVID-19 negative (PCR) HTN (hypertension) Hyperglycemia Lymphadenitis Migraine headache Non-alcoholic fatty liver disease Pancreatitis PID (pelvic inflammatory disease) Pleural effusion 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 Hyperglycemia improved, AG closed -Accucheks, ISS, hypoglycemia precautions, aggressive IVF hydration. Received 15 units of insulin in ED. Hyperglycemia has improved with SC insulin -hold scheduled insulin for now due to poor oral tolerance -has scheduled appointment to establish care with Dr. Ortega (endocrinology) on 06/16 Ureterolithiasis Surgical History History of cholecystectomy History of endoscopy History of lung surgery -s/p LLL lobectomy secondary to cavitary pneumonia (2017) Family History (Updated 05/24/20 @ 17:23 by Carie Saez MD) Grandfather Diabetes Social History Smoking and tobacco status: current every day smoker cigarettes Packs smoked per day: 0.5 Alcohol intake: never Household members: spouse Housing: House Female Reproductive History: Date of last menstrual period: 06/29/20 Physical Exam Const: COMMON NORMALS: no acute distress, average body habitus, patient oriented x3, no limitations, healthy appearing, alert and well nourished GENERAL APPEARANCE: cooperative, comfortable, well kempt and well developed ORIENTATION/CONSCIOUSNESS: Yes awake, Yes oriented to person, Yes oriented to place and Yes oriented to time HENMT: COMMON NORMALS: normocephalic, external ears normal and Normal external nose present HEAD & SCALP: normal to inspection and normocephalic NOSE: Normal external nose present EXTERNAL EAR: Yes external ears normal MOUTH: Normal oral and palatal mucosa present THROAT: posterior oropharynx normal Eye: COMMON NORMALS: Equal, round and reactive pupils present and EOMs intact bilaterally GENERAL EYE: appearance normal, both eyes and all related structures PUPIL: Yes Equal, round and reactive pupils present Neck/C-Spine: COMMON NORMALS: full ROM, no lymphadenopathy, no meningeal signs and no JVD GENERAL: Yes normal visual inspection Lymph: LYMPHATIC: no lymphadenopathy noted Chest: COMMONS NORMALS: normal inspection of the chest and normal palpation of entire chest wall Resp: COMMON NORMALS: normal respiratory effort, No retractions, No use of accessory muscles, clear to auscultation bilaterally and percussion normal EFFORT & INSPECTION: Yes able to speak in complete sentences AUSCULTATION: clear to auscultation bilaterally PERCUSSION: percussion normal Cardio: COMMON NORMALS: no JVD, regular rate, regular rhythm, S1 normal heart sound present, S2 normal heart sound present and Peripheral pulses 2+ throughout RATE: regular rate RHYTHM: regular rhythm HEART SOUNDS: S1 normal heart sound present and S2 normal heart sound present PERIPHERAL PULSES: Peripheral pulses 2+ throughout GI: COMMON NORMALS: Normal to inspection, nondistended, normoactive bowel sounds present, Soft to palpation and no masses INSPECTION: Yes normal to inspection PALPATION: Yes Soft to palpation OTHER: Moderate abdominal pain and tenderness in the periumbilical, lower abdomen, and left abdomen quadrant. Soft. No rebound tenderness : COMMON NORMALS: Yes no CVA tenderness BLADDER/KIDNEY EXAM: Yes no CVA tenderness Back/Pelvis: COMMON NORMALS: no CVA tenderness, thoracic and lumbar spine normal to inspection, no thoracic nor lumbar tenderness and thoraco-lumbar ROM normal Extremity: COMMON NORMALS: normal to inspection, full ROM, capillary refill normal, no joint enlargement and no pedal edema GENERAL: Yes normal exam except as noted Neuro: COMMON NORMALS: patient oriented x3, CN's II-XII intact bilaterally, moves all extremities, no focal motor deficits, no sensory deficits noted and gait normal SENSORIUM/ORIENTATION: Yes alert, Yes oriented to person, Yes oriented to place and Yes oriented to time MENINGEAL SIGNS: Yes no meningeal signs Psych: COMMON NORMALS: mental status grossly normal, Normal thought process present, cooperative, normal affect and speech normal APPEARANCE: Yes well kempt ATTITUDE: Yes calm SPEECH: Yes normal speech THOUGHT PROCESS: No rmal thought process present Skin: COMMON NORMALS: no rashes or lesions noted GENERAL SKIN EXAM: no rashes or lesions noted Course Vital Signs: Vital signs: Vital Signs Temperature 97.9 F 07/01/20 17:16 Pulse Rate 85 07/02/20 00:38 Respiratory Rate 16 07/02/20 00:38 Blood Pressure 104/78 07/02/20 00:38 Pulse Oximetry 98 07/02/20 00:38 MDM - Abdominal Pain MDM Narrative: Medical decision making narrative: The patient is a 34-year-old female with chronic abdominal pain who comes to the ER complaining of the same. Her lactic acid and leukocyte count were elevated and she was tender in her belly. CT is negative for any acute changes besides her chronically inflamed bladder which she knows she has. She is taking an antibiotic as an outpatient already for a urinary tract infection and her urinalysis looks clean. She feels clinically better after fluids and feel comfortable discharging her home. Return to the ER with worsening symptoms otherwise follow-up with your primary care doctor in a couple days to discuss further Differential Diagnosis: Differential diagnosis abdominal pain: Likely abdominal pain, acute appendicitis and calculus of kidney Lab Data: Labs: Lab Results 07/01/20 07/01/20 07/01/20 Range/Units 17:13 20:07 20:07 WBC 10.8 H (4.0-10.0) 10^3/ uL RBC 5.87 H (4.1-5.3) 10^6/u L Hgb 16.1 H (11.5-15.3) g/dL Hct 48.6 H (37.0-47.0) % MCV 82.8 (81-99) fL MCH 27.4 L (28.0-34.0) pg MCHC 33.1 (30.0-36.0) g/dL RDW 11.2 L (12.1-15.1) % Plt Count 370 (130-400) 10^3/c mm MPV 11.6 H (7.4-10.4) fL Neut % (Auto) 60.8 % Lymph % (Auto) 29.2 % [place] % (Auto) 8.1 % Eos % (Auto) 1.1 % Baso % (Auto) 0.6 % Neut # (Auto) 6.60 (1.8-7.7) 10^3/u L Lymph # (Auto) 3.2 (0.8-4.8) 10^3/u L [place] # (Auto) 0.9 (0.2-0.9) 10^3/u L Eos # (Auto) 0.1 (0.0-0.8) 10^3/u L Baso # (Auto) 0.1 (0.0-0.1) 10^3/u L Nucleated RBC % (a uto) 0 % Nucleated RBCs # 0.0 /100WBC Sodium 137 (136-145) mmol/L Potassium 3.3 L (3.5-5.1) mmol/L Chloride 94 L (98-107) mmol/L Carbon Dioxide 33 H (22-29) mmol/L Anion Gap 13.3 (5-19) BUN 20 (6-20) mg/dL Creatinine 0.9 (0.5-0.9) mg/dL GFR Calculation 72.1 L (90-130) mL/min Glucose 109 (65-115) mg/dL POC Glucose 295 H (70-110) mg/dL Calculated Osmolal ity 287 (285-295) mOsm/k g Lactate (0.5-2.2) mmol/L Calcium 10.1 (8.5-10.5) mg/dL Total Bilirubin 0.4 (0.15-1.2) mg/dL AST 16 (0-32) U/L ALT 14 (0-33) U/L Alkaline Phosphata se 98 (35-105) IU/L Total Protein 8.2 (6.6-8.7) g/dL Albumin 4.1 (3.5-5.2) g/dL Globulin 4.1 (1.3-4.6) g/dL Lipase 17 (13-60) U/L HCG, Qual (Negative) Urine Color (Yellow) Urine Appearance (CLEAR) Urine pH (5-7) Ur Specific Gravit y (1.005-1.030) Urine Protein (Negative) Urine Glucose (UA) (Normal) Urine Ketones (Negative) Urine Blood (Negative) Urine Nitrate (Negative) Urine Bilirubin (Negative) Urine Urobilinogen (Negative) mg/dL Ur Leukocyte Denise ase (Negative) Urine Opiates Scre en (Negative) ng/mL Ur Barbiturates Sc reen (Negative) ng/mL Ur Phencyclidine S crn (Negative) ng/mL Ur Amphetamines Sc reen (Negative) ng/mL U Benzodiazepines Scrn (Negative) ng/mL Urine Cocaine Scre en (Negative) ng/mL U Marijuana (THC) Screen (Negative) ng/mL Ethyl Alcohol < 10 (0-10) mg/dL 07/01/20 07/01/20 07/01/20 Range/Units 20:07 20:09 20:09 WBC (4.0-10.0) 10^3/ uL RBC (4.1-5.3) 10^6/u L Hgb (11.5-15.3) g/dL Hct (37.0-47.0) % MCV (81-99) fL MCH (28.0-34.0) pg MCHC (30.0-36.0) g/dL RDW (12.1-15.1) % Plt Count (130-400) 10^3/c mm MPV (7.4-10.4) fL Neut % (Auto) % Lymph % (Auto) % [place] % (Auto) % Eos % (Auto) % Baso % (Auto) % Neut # (Auto) (1.8-7.7) 10^3/u L Lymph # (Auto) (0.8-4.8) 10^3/u L [place] # (Auto) (0.2-0.9) 10^3/u L Eos # (Auto) (0.0-0.8) 10^3/u L Baso # (Auto) (0.0-0.1) 10^3/u L Nucleated RBC % (a uto) % Nucleated RBCs # /100WBC Sodium (136-145) mmol/L Potassium (3.5-5.1) mmol/L Chloride (98-107) mmol/L Carbon Dioxide (22-29) mmol/L Anion Gap (5-19) BUN (6-20) mg/dL Creatinine (0.5-0.9) mg/dL GFR Calculation (90-130) mL/min Glucose (65-115) mg/dL POC Glucose (70-110) mg/dL Calculated Osmolal ity (285-295) mOsm/k g Lactate 2.7 H (0.5-2.2) mmol/L Calcium (8.5-10.5) mg/dL Total Bilirubin (0.15-1.2) mg/dL AST (0-32) U/L ALT (0-33) U/L Alkaline Phosphata se (35-105) IU/L Total Protein (6.6-8.7) g/dL Albumin (3.5-5.2) g/dL Globulin (1.3-4.6) g/dL Lipase (13-60) U/L HCG, Qual Negative (Negative) Urine Color Yellow (Yellow) Urine Appearance Clear (CLEAR) Urine pH 7 (5-7) Ur Specific Gravit y 1.010 (1.005-1.030) Urine Protein Neg (Negative) Urine Glucose (UA) 4+ H (Normal) Urine Ketones Negative (Negative) Urine Blood Neg (Negative) Urine Nitrate Negative (Negative) Urine Bilirubin Neg (Negative) Urine Urobilinogen Norm (Negative) mg/dL Ur Leukocyte Denise ase Negative (Negative) Urine Opiates Scre en (Negative) ng/mL Ur Barbiturates Sc reen (Negative) ng/mL Ur Phencyclidine S crn (Negative) ng/mL Ur Amphetamines Sc reen (Negative) ng/mL U Benzodiazepines Scrn (Negative) ng/mL Urine Cocaine Scre en (Negative) ng/mL U Marijuana (THC) Screen (Negative) ng/mL Ethyl Alcohol (0-10) mg/dL 07/01/20 07/01/20 Range/Units 20:09 23:15 WBC (4.0-10.0) 10^3/ uL RBC (4.1-5.3) 10^6/u L Hgb (11.5-15.3) g/dL Hct (37.0-47.0) % MCV (81-99) fL MCH (28.0-34.0) pg MCHC (30.0-36.0) g/dL RDW (12.1-15.1) % Plt Count (130-400) 10^3/c mm MPV (7.4-10.4) fL Neut % (Auto) % Lymph % (Auto) % [place] % (Auto) % Eos % (Auto) % Baso % (Auto) % Neut # (Auto) (1.8-7.7) 10^3/u L Lymph # (Auto) (0.8-4.8) 10^3/u L [place] # (Auto) (0.2-0.9) 10^3/u L Eos # (Auto) (0.0-0.8) 10^3/u L Baso # (Auto) (0.0-0.1) 10^3/u L Nucleated RBC % (a uto) % Nucleated RBCs # /100WBC Sodium (136-145) mmol/L Potassium (3.5-5.1) mmol/L Chloride (98-107) mmol/L Carbon Dioxide (22-29) mmol/L Anion Gap (5-19) BUN (6-20) mg/dL Creatinine (0.5-0.9) mg/dL GFR Calculation (90-130) mL/min Glucose (65-115) mg/dL POC Glucose (70-110) mg/dL Calculated Osmolal ity (285-295) mOsm/k g Lactate 1.2 (0.5-2.2) mmol/L Calcium (8.5-10.5) mg/dL Total Bilirubin (0.15-1.2) mg/dL AST (0-32) U/L ALT (0-33) U/L Alkaline Phosphata se (35-105) IU/L Total Protein (6.6-8.7) g/dL Albumin (3.5-5.2) g/dL Globulin (1.3-4.6) g/dL Lipase (13-60) U/L HCG, Qual (Negative) Urine Color (Yellow) Urine Appearance (CLEAR) Urine pH (5-7) Ur Specific Gravit y (1.005-1.030) Urine Protein (Negative) Urine Glucose (UA) (Normal) Urine Ketones (Negative) Urine Blood (Negative) Urine Nitrate (Negative) Urine Bilirubin (Negative) Urine Urobilinogen (Negative) mg/dL Ur Leukocyte Denise ase (Negative) Urine Opiates Scre en Negative (Negative) ng/mL Ur Barbiturates Sc reen Negative (Negative) ng/mL Ur Phencyclidine S crn Negative (Negative) ng/mL Ur Amphetamines Sc reen Negative (Negative) ng/mL U Benzodiazepines Scrn Negative (Negative) ng/mL Urine Cocaine Scre en Negative (Negative) ng/mL U Marijuana (THC) Screen Negative (Negative) ng/mL Ethyl Alcohol (0-10) mg/dL Discharge Plan Discharge Patient Disposition: Home Clinical Impression: Cystitis Abdominal pain Qualifiers: Abdominal location: generalized Qualified Code(s): R10.84 - Generalized abdominal pain Condition: Stable Prescriptions: No Action cyclobenzaprine 5 mg tablet 5 mg PO TID PRN (Reason: muscle spasms) RF: 0 insulin lispro [Humalog KwikPen Insulin] 100 unit/mL Insulin Pen See Rx Instructions .ROUTE .COMPLEX RF: 0 Lantus Solostar U-100 Insulin 100 unit/mL (3 mL) Insulin Pen 50 unit SUBCUT BID@0800,1600 RF: 0 amoxicillin-pot clavulanate 875-125 mg tablet 1 tab PO BID@0800,1800 RF: 0 Discharge Orders: Discharge ED (Routine); Ordered 07/01/20 Ordered By: Sy Interiano Referrals: Elizabeth Dougherty FNP [Primary Care Provider] - Discharge Diet: Advance as tolerated Discharge Activity: Increase activity as tolerated Patient Instructions: Abdominal Pain (ED) Activity Restrictions/Additional Instructions: You have chronic abdominal pain and you came in very dehydrated which improved after IV fluids. Please go home and drink lots of fluids as you are able to tolerate. Return to the ER with worsening symptoms otherwise follow-up with your primary care doctor in a couple days to monitor improvement of your symptoms. Continue taking the antibiotic you are taking for your urinary tract infection as your urine is clean in the emergency room this evening Coding Level of Care Code ED Supervisor Cytogenetic Laboratory for Chg Fwd Exam Comprehensive Documented by User: Jak Larose DO 07/02/20 00:46 HPI - Abdominal Pain General: Chief Complaint: Abdominal Pain Stated Complaint: Dehydrated, N/V, High Sugar Time Seen by Provider: 07/01/20 18:48 [facility] [place] ED PFSH: Medical History (Updated 07/01/20 @ 22:50 by Sy Interiano MD) Anxiety Arnold-Chiari malformation Chronic headache Diabetic gastroparesis -continue Reglan Diabetic neuropathy associated with type 1 diabetes mellitus DKA (diabetic ketoacidoses) Exposure to severe acute respiratory syndrome coronavirus 2 (SARS-CoV-2) -COVID-19 negative (PCR) HTN (hypertension) Hyperglycemia Lymphadenitis Migraine headache Non-alcoholic fatty liver disease Pancreatitis PID (pelvic inflammatory disease) Pleural effusion 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 Hyperglycemia improved, AG closed -Accucheks, ISS, hypoglycemia precautions, aggressive IVF hydration. Received 15 units of insulin in ED. Hyperglycemia has improved with SC insulin -hold scheduled insulin for now due to poor oral tolerance -has scheduled appointment to establish care with Dr. Ortega (endocrinology) on 06/16 Ureterolithiasis Surgical History History of cholecystectomy History of endoscopy History of lung surgery -s/p LLL lobectomy secondary to cavitary pneumonia (2016) Family History (Updated 05/24/20 @ 17:23 by Carie Saez MD) Grandfather Diabetes Social History Smoking and tobacco status: current every day smoker cigarettes Packs smoked per day: 0.5 Alcohol intake: never Household members: spouse Housing: House Course Vital Signs: Vital signs: Vital Signs Temperature 97.9 F 07/01/20 17:16 Pulse Rate 85 07/02/20 00:38 Respiratory Rate 16 07/02/20 00:38 Blood Pressure 104/78 07/02/20 00:38 Pulse Oximetry 98 07/02/20 00:38 MDM - Abdominal Pain MDM Narrative: Medical decision making narrative: lactic acid now 1.2. discharge as planned Lab Data: Labs: Lab Results 07/01/20 07/01/20 07/01/20 Range/Units 17:13 20:07 20:07 WBC 10.8 H (4.0-10.0) 10^3/ uL RBC 5.87 H (4.1-5.3) 10^6/u L Hgb 16.1 H (11.5-15.3) g/dL Hct 48.6 H (37.0-47.0) % MCV 82.8 (81-99) fL MCH 27.4 L (28.0-34.0) pg MCHC 33.1 (30.0-36.0) g/dL RDW 11.2 L (12.1-15.1) % Plt Count 370 (130-400) 10^3/c mm MPV 11.6 H (7.4-10.4) fL Neut % (Auto) 60.8 % Lymph % (Auto) 29.2 % [place] % (Auto) 8.1 % Eos % (Auto) 1.1 % Baso % (Auto) 0.6 % Neut # (Auto) 6.60 (1.8-7.7) 10^3/u L Lymph # (Auto) 3.2 (0.8-4.8) 10^3/u L [place] # (Auto) 0.9 (0.2-0.9) 10^3/u L Eos # (Auto) 0.1 (0.0-0.8) 10^3/u L Baso # (Auto) 0.1 (0.0-0.1) 10^3/u L Nucleated RBC % (a uto) 0 % Nucleated RBCs # 0.0 /100WBC Sodium 137 (136-145) mmol/L Potassium 3.3 L (3.5-5.1) mmol/L Chloride 94 L (98-107) mmol/L Carbon Dioxide 33 H (22-29) mmol/L Anion Gap 13.3 (5-19) BUN 20 (6-20) mg/dL Creatinine 0.9 (0.5-0.9) mg/dL GFR Calculation 72.1 L (90-130) mL/min Glucose 109 (65-115) mg/dL POC Glucose 295 H (70-110) mg/dL Calculated Osmolal ity 287 (285-295) mOsm/k g Lactate (0.5-2.2) mmol/L Calcium 10.1 (8.5-10.5) mg/dL Total Bilirubin 0.4 (0.15-1.2) mg/dL AST 16 (0-32) U/L ALT 14 (0-33) U/L Alkaline Phosphata se 98 (35-105) IU/L Total Protein 8.2 (6.6-8.7) g/dL Albumin 4.1 (3.5-5.2) g/dL Globulin 4.1 (1.3-4.6) g/dL Lipase 17 (13-60) U/L HCG, Qual (Negative) Urine Color (Yellow) Urine Appearance (CLEAR) Urine pH (5-7) Ur Specific Gravit y (1.005-1.030) Urine Protein (Negative) Urine Glucose (UA) (Normal) Urine Ketones (Negative) Urine Blood (Negative) Urine Nitrate (Negative) Urine Bilirubin (Negative) Urine Urobilinogen (Negative) mg/dL Ur Leukocyte Denise ase (Negative) Urine Opiates Scre en (Negative) ng/mL Ur Barbiturates Sc reen (Negative) ng/mL Ur Phencyclidine S crn (Negative) ng/mL Ur Amphetamines Sc reen (Negative) ng/mL U Benzodiazepines Scrn (Negative) ng/mL Urine Cocaine Scre en (Negative) ng/mL U Marijuana (THC) Screen (Negative) ng/mL Ethyl Alcohol < 10 (0-10) mg/dL 07/01/20 07/01/20 07/01/20 Range/Units 20:07 20:09 20:09 WBC (4.0-10.0) 10^3/ uL RBC (4.1-5.3) 10^6/u L Hgb (11.5-15.3) g/dL Hct (37.0-47.0) % MCV (81-99) fL MCH (28.0-34.0) pg MCHC (30.0-36.0) g/dL RDW (12.1-15.1) % Plt Count (130-400) 10^3/c mm MPV (7.4-10.4) fL Neut % (Auto) % Lymph % (Auto) % [place] % (Auto) % Eos % (Auto) % Baso % (Auto) % Neut # (Auto) (1.8-7.7) 10^3/u L Lymph # (Auto) (0.8-4.8) 10^3/u L [place] # (Auto) (0.2-0.9) 10^3/u L Eos # (Auto) (0.0-0.8) 10^3/u L Baso # (Auto) (0.0-0.1) 10^3/u L Nucleated RBC % (a uto) % Nucleated RBCs # /100WBC Sodium (136-145) mmol/L Potassium (3.5-5.1) mmol/L Chloride (98-107) mmol/L Carbon Dioxide (22-29) mmol/L Anion Gap (5-19) BUN (6-20) mg/dL Creatinine (0.5-0.9) mg/dL GFR Calculation (90-130) mL/min Glucose (65-115) mg/dL POC Glucose (70-110) mg/dL Calculated Osmolal ity (285-295) mOsm/k g Lactate 2.7 H (0.5-2.2) mmol/L Calcium (8.5-10.5) mg/dL Total Bilirubin (0.15-1.2) mg/dL AST (0-32) U/L ALT (0-33) U/L Alkaline Phosphata se (35-105) IU/L Total Protein (6.6-8.7) g/dL Albumin (3.5-5.2) g/dL Globulin (1.3-4.6) g/dL Lipase (13-60) U/L HCG, Qual Negative (Negative) Urine Color Yellow (Yellow) Urine Appearance Clear (CLEAR) Urine pH 7 (5-7) Ur Specific Gravit y 1.010 (1.005-1.030) Urine Protein Neg (Negative) Urine Glucose (UA) 4+ H (Normal) Urine Ketones Negative (Negative) Urine Blood Neg (Negative) Urine Nitrate Negative (Negative) Urine Bilirubin Neg (Negative) Urine Urobilinogen Norm (Negative) mg/dL Ur Leukocyte Denise ase Negative (Negative) Urine Opiates Scre en (Negative) ng/mL Ur Barbiturates Sc reen (Negative) ng/mL Ur Phencyclidine S crn (Negative) ng/mL Ur Amphetamines Sc reen (Negative) ng/mL U Benzodiazepines Scrn (Negative) ng/mL Urine Cocaine Scre en (Negative) ng/mL U Marijuana (THC) Screen (Negative) ng/mL Ethyl Alcohol (0-10) mg/dL 07/01/20 07/01/20 Range/Units 20:09 23:15 WBC (4.0-10.0) 10^3/ uL RBC (4.1-5.3) 10^6/u L Hgb (11.5-15.3) g/dL Hct (37.0-47.0) % MCV (81-99) fL MCH (28.0-34.0) pg MCHC (30.0-36.0) g/dL RDW (12.1-15.1) % Plt Count (130-400) 10^3/c mm MPV (7.4-10.4) fL Neut % (Auto) % Lymph % (Auto) % [place] % (Auto) % Eos % (Auto) % Baso % (Auto) % Neut # (Auto) (1.8-7.7) 10^3/u L Lymph # (Auto) (0.8-4.8) 10^3/u L [place] # (Auto) (0.2-0.9) 10^3/u L Eos # (Auto) (0.0-0.8) 10^3/u L Baso # (Auto) (0.0-0.1) 10^3/u L Nucleated RBC % (a uto) % Nucleated RBCs # /100WBC Sodium (136-145) mmol/L Potassium (3.5-5.1) mmol/L Chloride (98-107) mmol/L Carbon Dioxide (22-29) mmol/L Anion Gap (5-19) BUN (6-20) mg/dL Creatinine (0.5-0.9) mg/dL GFR Calculation (90-130) mL/min Glucose (65-115) mg/dL POC Glucose (70-110) mg/dL Calculated Osmolal ity (285-295) mOsm/k g Lactate 1.2 (0.5-2.2) mmol/L Calcium (8.5-10.5) mg/dL Total Bilirubin (0.15-1.2) mg/dL AST (0-32) U/L ALT (0-33) U/L Alkaline Phosphata se (35-105) IU/L Total Protein (6.6-8.7) g/dL Albumin (3.5-5.2) g/dL Globulin (1.3-4.6) g/dL Lipase (13-60) U/L HCG, Qual (Negative) Urine Color (Yellow) Urine Appearance (CLEAR) Urine pH (5-7) Ur Specific Gravit y (1.005-1.030) Urine Protein (Negative) Urine Glucose (UA) (Normal) Urine Ketones (Negative) Urine Blood (Negative) Urine Nitrate (Negative) Urine Bilirubin (Negative) Urine Urobilinogen (Negative) mg/dL Ur Leukocyte Denise ase (Negative) Urine Opiates Scre en Negative (Negative) ng/mL Ur Barbiturates Sc reen Negative (Negative) ng/mL Ur Phencyclidine S crn Negative (Negative) ng/mL Ur Amphetamines Sc reen Negative (Negative) ng/mL U Benzodiazepines Scrn Negative (Negative) ng/mL Urine Cocaine Scre en Negative (Negative) ng/mL U Marijuana (THC) Screen Negative (Negative) ng/mL Ethyl Alcohol (0-10) mg/dL Discharge Plan Discharge Patient Disposition: Home Clinical Impression: Cystitis Abdominal pain Qualifiers: Abdominal location: generalized Qualified Code(s): R10.84 - Generalized abdominal pain Condition: Stable Prescriptions: No Action cyclobenzaprine 5 mg tablet 5 mg PO TID PRN (Reason: muscle spasms) RF: 0 insulin lispro [Humalog KwikPen Insulin] 100 unit/mL Insulin Pen See Rx Instructions .ROUTE .COMPLEX RF: 0 Lantus Solostar U-100 Insulin 100 unit/mL (3 mL) Insulin Pen 50 unit SUBCUT BID@0800,1600 RF: 0 amoxicillin-pot clavulanate 875-125 mg tablet 1 tab PO BID@0800,1800 RF: 0 Discharge Orders: Discharge ED (Routine); Ordered 07/01/20 Ordered By: Sy Interiano Referrals: Elizabeth Dougherty FNP [Primary Care Provider] - Discharge Diet: Advance as tolerated Discharge Activity: Increase activity as tolerated Patient Instructions: Abdominal Pain (ED) Activity Restrictions/Additional Instructions: You have chronic abdominal pain and you came in very dehydrated which improved after IV fluids. Please go home and drink lots of fluids as you are able to tolerate. Return to the ER with worsening symptoms otherwise follow-up with your primary care doctor in a couple days to monitor improvement of your symptoms. Continue taking the antibiotic you are taking for your urinary tract infection as your urine is clean in the emergency room this evening Coding Level of Care Code ED Supervisor Cytogenetic Laboratory for Chg Fwd Exam Comprehensive
[2020-07-01 19:50] VITALS: BP 95/66; PULSE 82; RESP 16; O2SAT 98
[2020-07-01] MEDS: ketorolac 30 mg/mL INJ 15 MG IVP (20:07)
[2020-07-01] MEDS: diphenhydrAMINE 50 mg/mL SDV 1mL 25 MG IVP (20:07)
[2020-07-01] MEDS: sodium chloride 0.9% 1,000 ML 999 ML IV (20:07)
[2020-07-01] MEDS: ondansetron 2 mg/ML SDV 2 mL 4 MG IVP (20:07)
[2020-07-01 20:23] LABS: Add Urine Microscopic? NO
[2020-07-01 20:38] LABS: Amphetamines Screen Urine Negative (Negative); Barbiturates Screen Urine Negative (Negative); Benzodiazepines Screen Urine Negative (Negative); Cocaine Screen Urine Negative (Negative); Opiate Screen Urine Negative (Negative); PCP Screen Urine Negative (Negative); THC Screen Urine Negative (Negative)
[2020-07-01 20:38] LABS: Basophils # 0.1 10^3/uL (0.0-0.1); Basophils % 0.6 %; Eosinophils # 0.1 10^3/uL (0.0-0.8); Eosinophils % 1.1 %; Hematocrit 48.6 % (37.0-47.0); Hemoglobin 16.1 g/dL (11.5-15.3); Lymphocytes # 3.2 10^3/uL (0.8-4.8); Lymphocytes % 29.2 %; Mean Corpuscular HGB Conc 33.1 g/dL (30.0-36.0); Mean Corpuscular Hemoglobin 27.4 pg (28.0-34.0); Mean Corpuscular Volume 82.8 fL (81-99); Mean Platelet Volume 11.6 fL (7.4-10.4); Monocytes # 0.9 10^3/uL (0.2-0.9); Monocytes % 8.1 %; Neutrophils % 60.8 %; Nucleated Red Blood Cells % 0 %; Platelet Count 370 10^3/cmm (130-400); Red Blood Count 5.87 10^6/uL (4.1-5.3); Red Cell Distribution Width 11.2 % (12.1-15.1); White Blood Count 10.8 10^3/uL (4.0-10.0)
[2020-07-01 20:45] LABS: Lactate (Lactic Acid level) 2.7 mmol/L (0.5-2.2)
[2020-07-01 20:46] LABS: Alanine Aminotransferase 14 U/L (0-33); Albumin Level 4.1 g/dL (3.5-5.2); Alkaline Phosphatase 98 IU/L (35-105); Anion Gap 13.3 (5-19); Aspartate Amino Transferase 16 U/L (0-32); Blood Urea Nitrogen 20 mg/dL (6-20); Calcium 10.1 mg/dL (8.5-10.5); Carbon Dioxide 33 mmol/L (22-29); Chloride 94 mmol/L (98-107); Globulin 4.1 g/dL (1.3-4.6); Glomerular Filtration Rate 72.1 mL/min (90-130); Glucose 109 mg/dL (65-115); Lipase 17 U/L (13-60); Osmolality Calculated 287 mOsm/kg (285-295); Potassium 3.3 mmol/L (3.5-5.1); Sodium 137 mmol/L (136-145); Total Bilirubin 0.4 mg/dL (0.15-1.2); Total Protein 8.2 g/dL (6.6-8.7)
[2020-07-01 20:54] LABS: Alcohol Level < 10 mg/dL (0-10)
[2020-07-01 20:54] LABS: HCG Qualitative Urine. Negative (Negative)
[2020-07-01 20:55] LABS: Bilirubin Urine Neg (Negative); Blood Urine Neg (Negative); Glucose Urine UA 4+ (Normal); Ketones Urine Negative (Negative); Leukocyte Esterase Urine Negative (Negative); Nitrate Urine Negative (Negative); Protein Urine Neg (Negative); Urine Appearance Clear (CLEAR); Urine Color Yellow (Yellow); Urobilinogen Urine Norm (Negative); pH Urine 7 (5-7)
[2020-07-01 21:14] VITALS: BP 115/71; PULSE 78; RESP 16; O2SAT 97
--- NOTE | 2020-07-01 21:54 | CTR_ITS ---
PROCEDURE INFORMATION: Exam: CT Abdomen And Pelvis With Contrast Exam date and time: 07/01/2020 10:02 PM Age: 34 years old Clinical indication: Abdominal tenderness and nausea and vomiting; Prior surgery; Surgery type: Gb; Additional info: Abd pain/diffuse tender, leukocytosis. H/o UTI and gastropar TECHNIQUE: Imaging protocol: Computed tomography of the abdomen and pelvis with intravenous contrast. Radiation optimization: All CT scans at this facility use at least one of these dose optimization techniques: automated exposure control; mA and/or kV adjustment per patient size (includes targeted exams where dose is matched to clinical indication); or iterative reconstruction. Contrast material: [id number]; Contrast volume: 95 ml; Contrast route: INTRAVENOUS (IV); COMPARISON: 1. CT kidney stone [id number] 05/28/2020 5:[address] abdomen pelvis w con* [id number] 05/06/2020 9:14:[address] abdomen pelvis w con* [id number] 05/23/2020 12:21:29 PM RADIATION DOSE METRICS: Total DLP (mGy-cm): 440.96 FINDINGS: Lungs: There is calcified granuloma at the right lung base. Liver: There is no focal abnormality within the liver. Gallbladder and bile ducts: There has been a cholecystectomy. Pancreas: The pancreas is normal. Spleen: The spleen is normal. Adrenal glands: The adrenal glands are normal. Kidneys and ureters: Scarring in the lower pole of the left kidney is not changed from previous. There is some mild scarring in the upper pole right kidney. There is no evidence of hydronephrosis. There is no evidence of renal or ureteral calcifications. Stomach and bowel: There is no evidence of colitis/diverticulitis. There is no evidence of intestinal obstruction. Appendix: A normal appendix is identified. Intraperitoneal space: Unremarkable. No free air. No significant fluid collection. Vasculature: The aorta demonstrates mild atherosclerotic calcification. There is no evidence of an abdominal aortic aneurysm. Lymph nodes: There is no evidence of lymphadenopathy. Urinary bladder: There is moderate diffuse thickening of the urinary bladder wall please correlate for any symptoms or clinical evidence of urinary tract infection. Reproductive: Unremarkable as visualized. Bones/joints: Unremarkable. No acute fracture. Soft tissues: Unremarkable. CT/CT abdomen pelvis w con* [id number] IMPRESSION: 1. Chronic thickening of the urinary bladder wall. Please correlate for any signs or symptoms of cystitis. 2. Focal scarring in the kidneys not significantly changed. 3. No acute finding. 4. Other than resolution of an ovarian cyst, findings are not changed from previous. Radiation Dose CTDIVOL = (mGy): DLP = 440.96 (mGy-cm)
[2020-07-01] MEDS: potassium chloride ER 20 mEq Tablet 40 MEQ PO (22:05)
[2020-07-01 22:07] VITALS: BP 123/89; PULSE 88; RESP 16; O2SAT 99
[2020-07-01] MEDS: iohexol 300 mg/mL 100 mL Btl IV (22:15)
[2020-07-01 22:49] VITALS: BP 136/94; PULSE 81; O2SAT 97
[2020-07-01 23:18] VITALS: BP 124/92; PULSE 76; RESP 16; O2SAT 98
[2020-07-01 23:52] LABS: Lactate (Lactic Acid level) 1.2 mmol/L (0.5-2.2)
[2020-07-02 00:34] VITALS: BP 108/76; PULSE 79; O2SAT 98
[2020-07-02 00:38] VITALS: BP 104/78; PULSE 85; RESP 16; O2SAT 98
== END 2020-07-02 00:37 | disposition home or self-care (01) ==
PROVIDERS: Emergency Provider Family Medicine; PCP Nurse Practitioner Family
DX: N30.90 Cystitis, unspecified without hematuria (principal); Z79.4 Long term (current) use of insulin; E10.40 Type 1 diabetes mellitus with diabetic neuropathy, unspecified; I10 Essential (primary) hypertension; F17.210 Nicotine dependence, cigarettes, uncomplicated; Z87.440 Personal history of urinary (tract) infections
CPT/HCPCS: 12345; 36416; 74177; 80053; 80306; 80307; 81003; 81025; 82962; 83605; 83690; 85025; 96361; 96374; 96375; 99283; J1200; J1885; J2405; J7030; Q9967

== ENCOUNTER 2020-07-10 13:01 | Emergency (ER) | payer BC, MEDICAID, SELFPAY ==
[2020-07-10 13:07] VITALS: BP 103/63; PULSE 91; RESP 14; TEMP 36.4; O2SAT 98; BMI 25.9
--- NOTE | 2020-07-10 13:34 | W.ED.HA ---
HPI - Headache General: Chief Complaint: Headache Stated Complaint: migraine,upper back pain Time Seen by Provider: 07/10/20 13:29 History of Present Illness: HPI Narrative: Patient complains about headache photophobia phonophobia today also complains about neck pain consistent with tension headache type. This all started yesterday has taken tramadol without any relief. Does not have migraines are tension headache medication intake. Blood sugars been doing okay. MD elicited complaint: migraine Onset (ago): day(s) Onset description: gradually Location: retro-orbital and down into neck Severity: severe Quality & Timing: aching, squeezing and similar to previous headaches Exacerbating factors: light and noise Relieving factors: dark room Context: occurred at rest Associated symptoms: Reports nausea; Deny chest pain, fever(s) or rash Treatments prior to arrival: prescription analgesic Review of Systems Const: Denies: fever(s), chills or body aches Eyes: Denies: change in vision or blurry vision ENMT: Denies: throat pain or nasal congestion Card: Denies: chest pain or dyspnea on exertion Resp: Denies: dyspnea, productive cough or non-productive cough GI: Reports: nausea Musc: Denies: extremity pain Skin/Breast: Denies: rash Neuro: Reports: headache(s) and other (Neck tightness and pain) Psych: Denies: anxiety or depression Ramiro/Lymph: Denies: easy bruising PFSH ED PFSH: Medical History (Updated 07/10/20 @ 00:00 by ) Anxiety Arnold-Chiari malformation Chronic headache Diabetic gastroparesis -continue Reglan Diabetic neuropathy associated with type 1 diabetes mellitus DKA (diabetic ketoacidoses) Exposure to severe acute respiratory syndrome coronavirus 2 (SARS-CoV-2) -COVID-19 negative (PCR) HTN (hypertension) Hyperglycemia Lymphadenitis Migraine headache Non-alcoholic fatty liver disease Pancreatitis PID (pelvic inflammatory disease) Pleural effusion 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 Hyperglycemia improved, AG closed -Accucheks, ISS, hypoglycemia precautions, aggressive IVF hydration. Received 15 units of insulin in ED. Hyperglycemia has improved with SC insulin -hold scheduled insulin for now due to poor oral tolerance -has scheduled appointment to establish care with Dr. Ortega (endocrinology) on 06/16 Ureterolithiasis Surgical History History of cholecystectomy History of endoscopy History of lung surgery -s/p LLL lobectomy secondary to cavitary pneumonia (2017) Family History (Updated 05/24/20 @ 17:23 by Carie Saez MD) Grandfather Diabetes Social History Smoking and tobacco status: current every day smoker cigarettes Packs smoked per day: 0.5 Alcohol intake: never Household members: spouse Housing: House Female Reproductive History: Date of last menstrual period: 06/29/20 Physical Exam Const: COMMON NORMALS: no acute distress, average body habitus and patient oriented x3 HENMT: COMMON NORMALS: normocephalic HEAD & SCALP: normal to inspection and normocephalic FACE & SINUS: normal facial exam Eye: COMMON NORMALS: conjunctivae normal GENERAL EYE: appearance normal, both eyes and all related structures CONJUNCTIVA: Yes conjunctivae normal Neck/C-Spine: COMMON NORMALS: no JVD GENERAL: Yes other (Neck muscles are tender spine nontender) Chest: COMMONS NORMALS: normal inspection of the chest Resp: COMMON NORMALS: normal respiratory effort and clear to auscultation bilaterally AUSCULTATION: clear to auscultation bilaterally Cardio: COMMON NORMALS: no JVD, regular rate and regular rhythm RATE: regular rate RHYTHM: regular rhythm GI: COMMON NORMALS: Normal to inspection, nondistended, normoactive bowel sounds present Extremity: COMMON NORMALS: normal to inspection and full ROM Neuro: COMMON NORMALS: patient oriented x3 and CN's II-XII intact bilaterally Course Vital Signs: Vital signs: Vital Signs Temperature 97.6 F 07/10/20 13:07 Pulse Rate 91 07/10/20 13:07 Respiratory Rate 14 07/10/20 13:07 Blood Pressure 103/63 07/10/20 13:07 Pulse Oximetry 98 07/10/20 13:07 Discharge Plan Discharge Condition: Good Prescriptions: No Action cyclobenzaprine 5 mg tablet 5 mg PO TID PRN (Reason: muscle spasms) RF: 0 insulin lispro [Humalog KwikPen Insulin] 100 unit/mL Insulin Pen See Rx Instructions .ROUTE .COMPLEX RF: 0 Lantus Solostar U-100 Insulin 100 unit/mL (3 mL) Insulin Pen 50 unit SUBCUT BID@0800,1600 RF: 0 amoxicillin-pot clavulanate 875-125 mg tablet 1 tab PO BID@0800,1800 RF: 0 Coding Level of Care Code ED Database Report Writer for Reji Chandler
[2020-07-10] MEDS: ketorolac 60 mg/2 mL INJ IM (13:38)
[2020-07-10] MEDS: SUMAtriptan 6 mg/0.5 mL SDV SUBCUT (13:38)
[2020-07-10] MEDS: ondansetron 4 MG Tablet 8 MG PO (13:38)
[2020-07-10 14:28] VITALS: BP 148/76; PULSE 75; RESP 14; O2SAT 95
--- NOTE | 2020-07-10 14:36 | PC.NURSE ---
Read and agree with assessment
== END 2020-07-10 14:28 | disposition home or self-care (01) ==
PROVIDERS: Emergency Provider Nurse Practitioner Family; PCP Nurse Practitioner Family
DX: R51.9 Headache, unspecified (principal); M54.2 Cervicalgia; Z79.4 Long term (current) use of insulin; E10.40 Type 1 diabetes mellitus with diabetic neuropathy, unspecified; I10 Essential (primary) hypertension; F17.210 Nicotine dependence, cigarettes, uncomplicated
CPT/HCPCS: 12345; 96372; 99281; 99283; J1885; J3030; Q0162

== ENCOUNTER → 2020-07-13 08:05 | Outpatient (BNVA) | payer BC, MEDICAID, SELFPAY | PROVIDERS: PCP Nurse Practitioner Family; Visit Provider Internal Medicine | DX: E10.43 Type 1 diabetes mellitus with diabetic autonomic (poly)neuropathy (principal); E10.65 Type 1 diabetes mellitus with hyperglycemia; Z79.4 Long term (current) use of insulin; E16.0 Drug-induced hypoglycemia without coma; T38.3X5A Adverse effect of insulin and oral hypoglycemic [antidiabetic] drugs, initial encounter; E78.5 Hyperlipidemia, unspecified; K90.0 Celiac disease; K31.84 Gastroparesis; Z87.19 Personal history of other diseases of the digestive system | CPT/HCPCS: 99205 ==

== ENCOUNTER 2020-08-16 11:38 | Observation (INO) | payer BC, MEDICAID, SELFPAY ==
[2020-08-16] VITALS (13 sets, daily range): BP systolic 93–148; BP diastolic 57–90; PULSE 70–89; RESP 13–23; TEMP 36.4–37.1; O2SAT 96–99; BMI 23.4
--- NOTE | 2020-08-16 11:59 | ED_ITS ---
HPI - General Adult General: Chief complaint: General Medical Stated complaint: NAUSEA, HARD TO STAND/HIGH BS Time Seen by Provider: 08/16/20 11:45 History of Present Illness: HPI narrative: 35 yo female presents emergency room claiming nausea vomiting last several days. Patient has a history of type 1 diabetes has not been taking any insulin last 24 hours. In addition that she has had severe diabetic gastroparesis in the past. At one point in the past she also had an empyema requiring surgical intervention. She is not had any fever sweats or chills she is not having polyuria or polydipsia but has had a lot of nausea vomiting. Onset (ago): day(s) Location: abdomen Severity: mild Quality: burning Pain Consistency: constant Relieving factors: none Exacerbating factors: none Associated symptoms: Deny chest pain, confusion, cough, diaphoresis, decreased appetite, dyspnea, fevers/chills, headache(s), malaise, nausea, rash, palpitations, seizures, short of breath, syncope, vomiting or weakness Treatments prior to arrival: heat therapy Review of Systems Const: Denies: malaise or diaphoresis ENMT: Denies: throat pain, ear or mastoid pain, nasal discharge or nasal congestion Card: Denies: chest pain, palpitations or syncope Resp: Denies: dyspnea GI: Denies: vomiting : Denies: flank pain, difficulty voiding, dysuria, urinary frequency or urinary urgency Skin/Breast: Denies: rash Neuro: Denies: headache(s) or confusion PFS ED PFSH: Medical History Anxiety Arnold-Chiari malformation Chronic headache Diabetic gastroparesis -continue Reglan Diabetic neuropathy associated with type 1 diabetes mellitus DKA (diabetic ketoacidoses) Exposure to severe acute respiratory syndrome coronavirus 2 (SARS-CoV-2) -COVID-19 negative (PCR) HTN (hypertension) Hyperglycemia Lymphadenitis Migraine headache Non-alcoholic fatty liver disease Pancreatitis PID (pelvic inflammatory disease) Pleural effusion 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 Pyelonephritis Recurrent UTI Respiratory failure Sepsis Type 1 diabetes mellitus Uncontrolled type 1 diabetes mellitus Ureterolithiasis Surgical History History of cholecystectomy History of endoscopy History of lung surgery -s/p LLL lobectomy secondary to cavitary pneumonia (2017) Family History Grandfather Diabetes Social History Smoking and tobacco status: current every day smoker cigarettes Packs smoked per day: 0.5 Second hand smoke exposure: Yes Alcohol intake: never Household members: children Housing: House Marital status: Single Current occupational status: unemployed Female Reproductive History: Date of last menstrual period: 06/29/20 Physical Exam Const: COMMON NORMALS: no acute distress GENERAL APPEARANCE: cooperative ORIENTATION/CONSCIOUSNESS: Yes awake, Yes oriented to person, Yes oriented to place and Yes oriented to time HENMT: COMMON NORMALS: normocephalic, atraumatic and hearing grossly normal bilaterally HEAD & SCALP: normocephalic and atraumatic Neck/C-Spine: COMMON NORMALS: no JVD Resp: COMMON NORMALS: normal respiratory effort, No retractions, No use of acc essory muscles and clear to auscultation bilaterally AUSCULTATION: clear to auscultation bilaterally Cardio: COMMON NORMALS: no JVD, regular rate, regular rhythm and No murmurs present (Cardio) RATE: regular rate RHYTHM: regular rhythm GI: PALPATION: Yes Tenderness to palpation present (GI) (epigastric) Extremity: COMMON NORMALS: normal to inspection, capillary refill normal, no clubbing, cyanosis or edema, no calf tenderness and no pedal edema Neuro: SENSORIUM/ORIENTATION: Yes oriented to person, Yes oriented to place and Yes oriented to time Skin: COMMON NORMALS: no rashes or lesions noted GENERAL SKIN EXAM: no rashes or lesions noted Course Vital Signs: Vital signs: Vital Signs Temperature 97.9 F 08/17/20 10:54 Pulse Rate 70 08/17/20 10:54 Respiratory Rate 18 08/17/20 10:54 Blood Pressure 154/98 08/17/20 10:54 Pulse Oximetry 99 08/17/20 10:54 MDM - General Adult MDM Narrative: Medical decision making narrative: Persistent nausea and vomiting blood sugars elevated but nonketotic no anion gap. Will give IV hydration and insulin antiemetics as needed discussed with hospitalist patient to be Lab Data: Labs: Lab Results 08/16/20 08/16/2008/16/21 Range/Units 12:24 12:33 12:47 WBC 8.0 (4.0-10.0) 10^3/ uL RBC 4.97 (4.1-5.3) 10^6/u L Hgb 13.9 (11.5-15.3) g/dL Hct 40.0 (37.0-47.0) % MCV 80.5 L (81-99) fL MCH 28.0 (28.0-34.0) pg MCHC 34.8 (30.0-36.0) g/dL RDW 12.3 (12.1-15.1) % Plt Count 224 (130-400) 10^3/c mm MPV 11.5 H (7.4-10.4) fL Neut % (Auto) 67.2 % Lymph % (Auto) 25.4 % [place] % (Auto) 6.1 % Eos % (Auto) 0.7 % Baso % (Auto) 0.5 % Neut # (Auto) 5.40 (1.8-7.7) 10^3/u L Lymph # (Auto) 2.0 (0.8-4.8) 10^3/u L [place] # (Auto) 0.5 (0.2-0.9) 10^3/u L Eos # (Auto) 0.1 (0.0-0.8) 10^3/u L Baso # (Auto) 0.0 (0.0-0.1) 10^3/u L Nucleated RBC % (a uto) 0 % Nucleated RBCs # 0.0 /100WBC Specimen Type Arterial Sample Site Radial, right ABG pH 7.43 (7.35-7.45) ABG pCO2 40.1 (35-45) mmHg ABG pO2 85.0 (80.0-100.0) mmH g ABG HCO3 26.6 H (22-26) mmol/L ABG O2 Saturation 97.7 ABG Base Excess 2.2 H (-2.0-2.0) mmol/ L Braulio Test Pos A-a O2 Gradient 1.9 L (5-10) mmHg Hematocrit 44.4 (37-47) % Hgb O2 Saturation 95.4 (95-100) % Carboxyhemoglobin 1.3 (0.4-20.1) %THgb Methemoglobin 1.0 (0.4-1.5) % Total Hemoglobin 14.5 (12-16) g/dL Sodium 127.0 L (131-143) mmol/L Potassium 4.6 (3.5-5.0) mmol/L Glucose 757.0 H (70-115) mg/dL Ionized Calcium 1.2 (1.1-1.4) mmol/L O2 Delivery Device Room air FiO2 21.0 % Cigar Making Machine Operator ID Cak Chloride (98-107) mmol/L Carbon Dioxide (22-29) mmol/L Anion Gap (5-19) BUN (6-20) mg/dL Creatinine (0.5-0.9) mg/dL GFR Calculation (90-130) mL/min POC Glucose > 600 H* (70-110) mg/dL Calculated Osmolal ity (285-295) mOsm/k g Calcium (8.5-10.5) mg/dL Magnesium (1.7-2.3) mg/dL Total Bilirubin (0.15-1.2) mg/dL AST (0-32) U/L ALT (0-33) U/L Alkaline Phosphata se (35-105) IU/L C-Reactive Protein (0.0-4.9) mg/L Total Protein (6.6-8.7) g/dL Albumin (3.5-5.2) g/dL Globulin (1.3-4.6) g/dL Lipase (13-60) U/L Procalcitonin (0-0.5) ng/mL HCG, Qual (Negative) Urine Color (Yellow) Urine Appearance (CLEAR) Urine pH (5-7) Ur Specific Gravit y (1.005-1.030) Urine Protein (Negative) Urine Glucose (UA) (Normal) Urine Ketones (Negative) Urine Blood (Negative) Urine Nitrate (Negative) Urine Bilirubin (Negative) Urine Urobilinogen (Negative) mg/dL Ur Leukocyte Denise ase (Negative) Urine RBC (0-2) /hpf Urine WBC (0-5) /hpf Ur Squamous Epith Cells (0-5) /hpf Amorphous Sediment Urine Bacteria (NONE) /hpf Serum Ketones (Negative) HIV 1&2 Ab & HIV 1 Ag (Non-Reactiv) HIV 1&2 Antibody (Non-Reactiv) 08/16/20 08/16/20 08/16/20 Range/Units 12:47 12:47 12:47 WBC (4.0-10.0) 10^3/ uL RBC (4.1-5.3) 10^6/u L Hgb (11.5-15.3) g/dL Hct (37.0-47.0) % MCV (81-99) fL MCH (28.0-34.0) pg MCHC (30.0-36.0) g/dL RDW (12.1-15.1) % Plt Count (130-400) 10^3/c mm MPV (7.4-10.4) fL Neut % (Auto) % Lymph % (Auto) % [place] % (Auto) % Eos % (Auto) % Baso % (Auto) % Neut # (Auto) (1.8-7.7) 10^3/u L Lymph # (Auto) (0.8-4.8) 10^3/u L [place] # (Auto) (0.2-0.9) 10^3/u L Eos # (Auto) (0.0-0.8) 10^3/u L Baso # (Auto) (0.0-0.1) 10^3/u L Nucleated RBC % (a uto) % Nucleated RBCs # /100WBC Specimen Type Sample Site ABG pH (7.35-7.45) ABG pCO2 (35-45) mmHg ABG pO2 (80.0-100.0) mmH g ABG HCO3 (22-26) mmol/L ABG O2 Saturation ABG Base Excess (-2.0-2.0) mmol/ L Braulio Test A-a O2 Gradient (5-10) mmHg Hematocrit (37-47) % Hgb O2 Saturation (95-100) % Carboxyhemoglobin (0.4-20.1) %THgb Methemoglobin (0.4-1.5) % Total Hemoglobin (12-16) g/dL Sodium 126 L (131-143) mmol/L Potassium 4.6 (3.5-5.0) mmol/L Glucose 714 H* (70-115) mg/dL Ionized Calcium (1.1-1.4) mmol/L O2 Delivery Device FiO2 % Cigar Making Machine Operator ID Chloride 90 L (98-107) mmol/L Carbon Dioxide 26 (22-29) mmol/L Anion Gap 14.6 (5-19) BUN 19 (6-20) mg/dL Creatinine 0.8 (0.5-0.9) mg/dL GFR Calculation 82.1 L (90-130) mL/min POC Glucose (70-110) mg/dL Calculated Osmolal ity 298 H (285-295) mOsm/k g Calcium 8.5 (8.5-10.5) mg/dL Magnesium (1.7-2.3) mg/dL Total Bilirubin 0.2 (0.15-1.2) mg/dL AST 12 (0-32) U/L ALT 14 (0-33) U/L Alkaline Phosphata se 118 H (35-105) IU/L C-Reactive Protein 0.7 (0.0-4.9) mg/L Total Protein 6.8 (6.6-8.7) g/dL Albumin 3.3 L (3.5-5.2) g/dL Globulin 3.5 (1.3-4.6) g/dL Lipase 38 (13-60) U/L Procalcitonin (0-0.5) ng/mL HCG, Qual (Negative) Urine Color (Yellow) Urine Appearance (CLEAR) Urine pH (5-7) Ur Specific Gravit y (1.005-1.030) Urine Protein (Negative) Urine Glucose (UA) (Normal) Urine Ketones (Negative) Urine Blood (Negative) Urine Nitrate (Negative) Urine Bilirubin (Negative) Urine Urobilinogen (Negative) mg/dL Ur Leukocyte Denise ase (Negative) Urine RBC (0-2) /hpf Urine WBC (0-5) /hpf Ur Squamous Epith Cells (0-5) /hpf Amorphous Sediment Urine Bacteria (NONE) /hpf Serum Ketones Negative (Negative) HIV 1&2 Ab & HIV 1 Ag (Non-Reactiv) HIV 1&2 Antibody (Non-Reactiv) 08/16/20 08/16/20 08/16/20 Range/Units 12:47 12:47 14:00 WBC (4.0-10.0) 10^3/ uL RBC (4.1-5.3) 10^6/u L Hgb (11.5-15.3) g/dL Hct (37.0-47.0) % MCV (81-99) fL MCH (28.0-34.0) pg MCHC (30.0-36.0) g/dL RDW (12.1-15.1) % Plt Count (130-400) 10^3/c mm MPV (7.4-10.4) fL Neut % (Auto) % Lymph % (Auto) % [place] % (Auto) % Eos % (Auto) % Baso % (Auto) % Neut # (Auto) (1.8-7.7) 10^3/u L Lymph # (Auto) (0.8-4.8) 10^3/u L [place] # (Auto) (0.2-0.9) 10^3/u L Eos # (Auto) (0.0-0.8) 10^3/u L Baso # (Auto) (0.0-0.1) 10^3/u L Nucleated RBC % (a uto) % Nucleated RBCs # /100WBC Specimen Type Sample Site ABG pH (7.35-7.45) ABG pCO2 (35-45) mmHg ABG pO2 (80.0-100.0) mmH g ABG HCO3 (22-26) mmol/L ABG O2 Saturation ABG Base Excess (-2.0-2.0) mmol/ L Braulio Test A-a O2 Gradient (5-10) mmHg Hematocrit (37-47) % Hgb O2 Saturation (95-100) % Carboxyhemoglobin (0.4-20.1) %THgb Methemoglobin (0.4-1.5) % Total Hemoglobin (12-16) g/dL Sodium (131-143) mmol/L Potassium (3.5-5.0) mmol/L Glucose (70-115) mg/dL Ionized Calcium (1.1-1.4) mmol/L O2 Delivery Device FiO2 % Cigar Making Machine Operator ID Chloride (98-107) mmol/L Carbon Dioxide (22-29) mmol/L Anion Gap (5-19) BUN (6-20) mg/dL Creatinine (0.5-0.9) mg/dL GFR Calculation (90-130) mL/min POC Glucose (70-110) mg/dL Calculated Osmolal ity (285-295) mOsm/k g Calcium (8.5-10.5) mg/dL Magnesium 1.6 L (1.7-2.3) mg/dL Total Bilirubin (0.15-1.2) mg/dL AST (0-32) U/L ALT (0-33) U/L Alkaline Phosphata se (35-105) IU/L C-Reactive Protein (0.0-4.9) mg/L Total Protein (6.6-8.7) g/dL Albumin (3.5-5.2) g/dL Globulin (1.3-4.6) g/dL Lipase (13-60) U/L Procalcitonin 0.07 (0-0.5) ng/mL HCG, Qual (Negative) Urine Color Straw (Yellow) Urine Appearance Clear (CLEAR) Urine pH 5 (5-7) Ur Specific Gravit y 1.005 (1.005-1.030) Urine Protein Neg (Negative) Urine Glucose (UA) 4+ H (Normal) Urine Ketones Negative (Negative) Urine Blood Trace H (Negative) Urine Nitrate Negative (Negative) Urine Bilirubin Neg (Negative) Urine Urobilinogen Norm (Negative) mg/dL Ur Leukocyte Denise ase Negative (Negative) Urine RBC 0-4 H (0-2) /hpf Urine WBC None (0-5) /hpf Ur Squamous Epith Cells 0-4 H (0-5) /hpf Amorphous Sediment Not Reportable Urine Bacteria 1+ H (NONE) /hpf Serum Ketones (Negative) HIV 1&2 Ab & HIV 1 Ag Non-reactive (Non-Reactiv) HIV 1&2 Antibody Non-reactive (Non-Reactiv) 08/16/20 08/16/20 Range/Units 14:00 14:21 WBC (4.0-10.0) 10^3/ uL RBC (4.1-5.3) 10^6/u L Hgb (11.5-15.3) g/dL Hct (37.0-47.0) % MCV (81-99) fL MCH (28.0-34.0) pg MCHC (30.0-36.0) g/dL RDW (12.1-15.1) % Plt Count (130-400) 10^3/c mm MPV (7.4-10.4) fL Neut % (Auto) % Lymph % (Auto) % [place] % (Auto) % Eos % (Auto) % Baso % (Auto) % Neut # (Auto) (1.8-7.7) 10^3/u L Lymph # (Auto) (0.8-4.8) 10^3/u L [place] # (Auto) (0.2-0.9) 10^3/u L Eos # (Auto) (0.0-0.8) 10^3/u L Baso # (Auto) (0.0-0.1) 10^3/u L Nucleated RBC % (a uto) % Nucleated RBCs # /100WBC Specimen Type Sample Site ABG pH (7.35-7.45) ABG pCO2 (35-45) mmHg ABG pO2 (80.0-100.0) mmH g ABG HCO3 (22-26) mmol/L ABG O2 Saturation ABG Base Excess (-2.0-2.0) mmol/ L Braulio Test A-a O2 Gradient (5-10) mmHg Hematocrit (37-47) % Hgb O2 Saturation (95-100) % Carboxyhemoglobin (0.4-20.1) %THgb Methemoglobin (0.4-1.5) % Total Hemoglobin (12-16) g/dL Sodium (131-143) mmol/L Potassium (3.5-5.0) mmol/L Glucose (70-115) mg/dL Ionized Calcium (1.1-1.4) mmol/L O2 Delivery Device FiO2 % Cigar Making Machine Operator ID Chloride (98-107) mmol/L Carbon Dioxide (22-29) mmol/L Anion Gap (5-19) BUN (6-20) mg/dL Creatinine (0.5-0.9) mg/dL GFR Calculation (90-130) mL/min POC Glucose 426 H (70-110) mg/dL Calculated Osmolal ity (285-295) mOsm/k g Calcium (8.5-10.5) mg/dL Magnesium (1.7-2.3) mg/dL Total Bilirubin (0.15-1.2) mg/dL AST (0-32) U/L ALT (0-33) U/L Alkaline Phosphata se (35-105) IU/L C-Reactive Protein (0.0-4.9) mg/L Total Protein (6.6-8.7) g/dL Albumin (3.5-5.2) g/dL Globulin (1.3-4.6) g/dL Lipase (13-60) U/L Procalcitonin (0-0.5) ng/mL HCG, Qual Negative (Negative) Urine Color (Yellow) Urine Appearance (CLEAR) Urine pH (5-7) Ur Specific Gravit y (1.005-1.030) Urine Protein (Negative) Urine Glucose (UA) (Normal) Urine Ketones (Negative) Urine Blood (Negative) Urine Nitrate (Negative) Urine Bilirubin (Negative) Urine Urobilinogen (Negative) mg/dL Ur Leukocyte Denise ase (Negative) Urine RBC (0-2) /hpf Urine WBC (0-5) /hpf Ur Squamous Epith Cells (0-5) /hpf Amorphous Sediment Urine Bacteria (NONE) /hpf Serum Ketones (Negative) HIV 1&2 Ab & HIV 1 Ag (Non-Reactiv) HIV 1&2 Antibody (Non-Reactiv) Discharge Plan Discharge Patient Disposition: Admitted As Inpatient Admit Provider: Shola Carrera Clinical Impression: Diabetic hyperosmolar non-ketotic state, Uncontrolled type 1 diabetes mellitus, Recurrent UTI, Dehydration Condition: Stable Coding Level of Care Code ED Certified Nurse Practitioner for Reji Chandler
--- NOTE | 2020-08-16 12:04 | ECG_ITS ---
[facility] Test Date: 2020-08-16 Pat Name: Donita Aguilar Department: Room: Gender: Female Pipe Bending Machine Operator: : 1985 Requested By: Shravan Nick Order Number: [id number] Faviola MD: Riccardo Burch M.D. Measurements Intervals [place] Rate: 79 P: 25 [place]: 142 QRS: 65 QRSD: 97 T: 17 QT: 372 QTc: 428 Interpretive Statements SINUS RHYTHM NONSPECIFIC T-WAVE ABNORMALITY Compared to ECG 01/30/2020 15:20:31 No significant changes Electronically Signed On 08-16-2020 17:37:18 [employer] by Riccardo Burch M.D. [id number]
[2020-08-16 12:44] LABS: ABG PCO2 40.1 mmHg (35-45); ABG PH Result 7.43 (7.35-7.45); Alveolar-Arterial Oxygen Gradi 1.9 mmHg (5-10); Arterial Blood Gas Hematocrit 44.4 % (37-47); Base Excess ABG 2.2 mmol/L (-2.0-2.0); Blood Gas Allen Test Pos; Blood Gas Operator Identificat CAK; Blood Gas Sample Site Radial, right; Blood Gas Sample Type Arterial; Carboxyhemoglobin 1.3 %THgb (0.4-20.1); HCO3 ABG 26.6 mmol/L (22-26); HGB O2 Sat 95.4 % (95-100); Ionized Calcium Level - ABG 1.2 mmol/L (1.1-1.4); Oxygen Device ROOM AIR; Oxygen Saturation ABG 97.7; Potassium Level - ABG 4.6 mmol/L (3.5-5.0); Total Hemoglobin 14.5 g/dL (12-16)
[2020-08-16] MEDS: sodium chloride 0.9% 1,000 ML 999 ML IV ×2 (12:44→13:57)
[2020-08-16 12:52] LABS: Glucose Point of Care > 600 mg/dL (70-110)
[2020-08-16 12:55] LABS: Basophils % 0.5 %; Eosinophils # 0.1 10^3/uL (0.0-0.8); Eosinophils % 0.7 %; Hemoglobin 13.9 g/dL (11.5-15.3); Lymphocytes % 25.4 %; Mean Corpuscular HGB Conc 34.8 g/dL (30.0-36.0); Mean Corpuscular Volume 80.5 fL (81-99); Mean Platelet Volume 11.5 fL (7.4-10.4); Monocytes # 0.5 10^3/uL (0.2-0.9); Monocytes % 6.1 %; Neutrophils % 67.2 %; Nucleated Red Blood Cells % 0 %; Platelet Count 224 10^3/cmm (130-400); Red Blood Count 4.97 10^6/uL (4.1-5.3); Red Cell Distribution Width 12.3 % (12.1-15.1)
[2020-08-16] MEDS: insulin regular-human 100 units/1 mL 20 UNIT IVP (13:01)
[2020-08-16 13:03] LABS: Ketone (Acetest) Serum Negative (Negative)
[2020-08-16 13:11] LABS: Alanine Aminotransferase 14 U/L (0-33); Albumin Level 3.3 g/dL (3.5-5.2); Alkaline Phosphatase 118 IU/L (35-105); Anion Gap 14.6 (5-19); Aspartate Amino Transferase 12 U/L (0-32); Blood Urea Nitrogen 19 mg/dL (6-20); Calcium 8.5 mg/dL (8.5-10.5); Carbon Dioxide 26 mmol/L (22-29); Chloride 90 mmol/L (98-107); Globulin 3.5 g/dL (1.3-4.6); Glomerular Filtration Rate 82.1 mL/min (90-130); Lipase 38 U/L (13-60); Osmolality Calculated 298 mOsm/kg (285-295); Potassium 4.6 mmol/L (3.5-5.1); Sodium 126 mmol/L (136-145); Total Bilirubin 0.2 mg/dL (0.15-1.2); Total Protein 6.8 g/dL (6.6-8.7)
[2020-08-16 13:12] LABS: Glucose 714 mg/dL (65-115)
[2020-08-16] MEDS: morphine 4 mg/mL SDV 1 mL 2 MG IVP ×3 (14:10→23:38)
[2020-08-16 14:27] LABS: Glucose Point of Care 426 mg/dL (70-110)
[2020-08-16] MEDS: insulin regular-human 100 units/1 mL 10 UNIT IVP (14:47)
[2020-08-16 15:00] LABS: Add Urine Microscopic? YES; Bilirubin Urine Neg (Negative); Blood Urine Trace (Negative); Glucose Urine UA 4+ (Normal); Ketones Urine Negative (Negative); Leukocyte Esterase Urine Negative (Negative); Nitrate Urine Negative (Negative); Protein Urine Neg (Negative); Specific Gravity, Urine 1.005 (1.005-1.030); Urine Appearance Clear (CLEAR); Urine Color Straw (Yellow); Urobilinogen Urine Norm (Negative); pH Urine 5 (5-7)
--- NOTE | 2020-08-16 15:03 | PM.HP ---
Providers/Chief Complaint Admitting Physician: Shola Carrera MD Primary Care Provider: SUZANNE Dias Chief Complaint: NAUSEA, HARD TO STAND History of Present Illness Donita Aguilar is a 35 year old female with a past medical history of type 1 diabetes, hyperlipidemia, recurrent UTIs, who presents to [facility] due to feeling unwell, nausea, fatigue, malaise. Patient states that for the last 48 hours, she has not felt well, she has had nausea, vomiting, fatigue, malaise. No fevers, no chills, no shortness of breath, no chest pain, no palpitations. No abdominal pain per se. No bloody or black stools. No dysuria, no hematuria. No pelvic pain. No back pain. No CVA tenderness. She denies being , LMP was on July 25. She does have a history of diabetic gastroparesis, she does not feel that this is related to diabetic gastroparesis. She has not taken her insulin for the last 24 hours. Her blood sugar admission was 700, with insulin therapy as compared to 423. She also appears to be dehydrated. Hospitalist team was called for admission Review of Systems Const: Reports: fatigue and malaise; Denies: fever(s) or chills Eyes: Denies: change in vision or blurry vision ENMT: Denies: nasal congestion Card: Denies: chest pain or palpitations Resp: Denies: dyspnea, productive cough, non-productive cough or wheezing GI: Reports: nausea and vomiting; Denies: abdominal pain, hematemesis, diarrhea, constipation, hematochezia or melena : Denies: flank pain, dysuria or urinary frequency Musc: Denies: neck pain or back pain Skin/Breast: Denies: rash Neuro: Denies: headache(s), dizziness or vertigo Psych: Denies: anxiety or depression Endo: Denies: polyuria or polydipsia Medications/Allergies Home Medications Medication Instructions Recorded Confirmed Last Taken Type insulin lispro [Humalog KwikPen See Rx Instructions .ROUTE .COMPLEX 06/30/19 08/16/20 08/15/20 History Insulin] insulin glargine 100 unit/mL (3 25 unit SUBCUT BID@0800,1600 ml 07/13/20 08/16/20 08/15/20 History mL) subcutaneous pen Allergies Allergy/AdvReac Type Severity Reaction Status Date / Time acetaminophen AdvReac Mild ADR-Gastrointestinal Verified 08/16/20 11:50 Upset PFSH Acute PFSH: Medical History Anxiety Arnold-Chiari malformation Chronic headache Diabetic gastroparesis -continue Reglan Diabetic neuropathy associated with type 1 diabetes mellitus DKA (diabetic ketoacidoses) Exposure to severe acute respiratory syndrome coronavirus 2 (SARS-CoV-2) -COVID-19 negative (PCR) HTN (hypertension) Hyperglycemia Lymphadenitis Migraine headache Non-alcoholic fatty liver disease Pancreatitis PID (pelvic inflammatory disease) Pleural effusion 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 Pyelonephritis Recurrent UTI Respiratory failure Sepsis Type 1 diabetes mellitus Uncontrolled type 1 diabetes mellitus Ureterolithiasis Surgical History History of cholecystectomy History of endoscopy History of lung surgery -s/p LLL lobectomy secondary to cavitary pneumonia (2016) Family History Grandfather Diabetes Social History Smoking and tobacco status: current every day smoker cigarettes Packs smoked per day: 0.5 Second hand smoke exposure: Yes Alcohol intake: never Household members: children Housing: House Marital status: Single Current occupational status: unemployed Female Reproductive History: Date of last menstrual period: 06/29/20 Vitals/I&O/Wt Last Vital Signs Temp 97.6 F 08/16/20 11:45 Pulse 77 08/16/20 14:57 Resp 17 08/16/20 14:57 BP 118/83 08/16/20 14:57 Pulse Ox 96 08/16/20 14:57 08/16/20 08/16/20 08/16/20 06:59 14:59 22:59 Intake Total 1000 / 1000 Balance 1000 / 1000 Weight last 48 hrs Weight 54.431 kg Physical Exam Const: COMMON NORMALS: no acute distress and patient oriented x3 GENERAL APPEARANCE: cooperative and comfortable HENMT: COMMON NORMALS: normocephalic HEAD & SCALP: normocephalic Eye: COMMON NORMALS: Equal, round and reactive pupils present and EOMs intact bilaterally GENERAL EYE: appearance normal, both eyes and all related structures PUPIL: Yes Equal, round and reactive pupils present Neck/C-Spine: COMMON NORMALS: full ROM, no lymphadenopathy, no JVD and Thyroid normal THYROID: Thyroid normal Lymph: LYMPHATIC: no lymphadenopathy noted Resp: COMMON NORMALS: normal respiratory effort, No retractions, No use of accessory muscles and clear to auscultation bilaterally AUSCULTATION: clear to auscultation bilaterally Cardio: COMMON NORMALS: no JVD, regular rate, regular rhythm, S1 normal heart sound present, S2 normal heart sound present, No gallops present (Cardio), No clicks present (Cardio) and No murmurs present (Cardio) RATE: regular rate RHYTHM: regular rhythm HEART SOUNDS: S1 normal heart sound present and S2 normal heart sound present GI: COMMON NORMALS: Normal to inspection, nondistended, normoactive bowel sounds present, Soft to palpation, non-tender and No hepatosplenomegaly present PALPATION: Yes Soft to palpation and Yes No hepatosplenomegaly present Extremity: COMMON NORMALS: normal to inspection, full ROM and no pedal edema Neuro: COMMON NORMALS: patient oriented x3, CN's II-XII intact bilaterally, moves all extremities and no focal motor deficits Psych: COMMON NORMALS: mental status grossly normal, Normal thought process present and cooperative THOUGHT PROCESS: Normal thought process present Data : 08/16/20 12:47 08/16/20 12:47 A&P Assessment and plan (1) Hyperglycemia: -Blood sugar down to 423, no significant evidence of DKA -Continue home insulin glargine 25 units twice daily, with moderate dose sliding scale -Continue clear liquid diet -Monitor blood sugars carefully -Continue IV fluids Status: Acute (2) Dehydration: Continue IV hydration Status: Acute (3) Recurrent UTI: Possible recurrent UTI, start Rocephin, obtain UA, urine test Status: Acute Additional A&P Information Full code, Lovenox for DVT prophylaxis Attestations Medical Necessity Statement*: Hospitalization for hypoglycemia, dehydration, recurrent UTI, outpatient with observation Coding Level of Care Code Acute Therapy Tech for Chg Fwd Diagnoses Hyperglycemia R73.9 Dehydration E86.0 Recurrent UTI N39.0
[2020-08-16 15:05] LABS: Add Urine Culture? No; Bacteria Urine 1+ /hpf; RBC Urine 0-4 /hpf (0-2); Squamous Epithelial Cell Urine 0-4 /hpf (0-5)
--- NOTE | 2020-08-16 15:46 | XR_ITS ---
WS: [id number] Exam: XR chest 1V portable [id number] Date/Time of Exam: 08/16/2020 4:12 PM Reason For Exam: feeling unwell Comparison 05/24/2020. The lungs are bilaterally clear and fully expanded. Signs of partial left-sided pneumonectomy and tho racotomy. Normal cardiomediastinal structures. XR/XR chest 1V portable [id number] IMPRESSION: 1. No acute cardiopulmonary finding. 2. Signs of partial left-sided pneumonectomy and thoracotomy. Stable.
[2020-08-16 16:21] LABS: HCG Qualitative Urine. Negative (Negative)
[2020-08-16 16:23] LABS: C Reactive Protein 0.7 mg/L (0.0-4.9)
[2020-08-16] MEDS: sodium chloride 0.9% 1,000 ML 100 ML IV (16:29)
[2020-08-16] MEDS: insulin glargine 100 units/1 mL 25 UNIT SUBCUT (16:29)
[2020-08-16] MEDS: enoxaparin 40 mg/0.4 mL Syringe SUBCUT (16:30)
[2020-08-16] MEDS: cefTRIAXone 1,000 MG in sodium chloride 0.9% (plus) 50 ML 100 MG IV (16:30)
[2020-08-16 16:32] LABS: Procalcitonin 0.07 ng/mL (0-0.5)
[2020-08-16 16:40] LABS: Glucose Point of Care 340 mg/dL (70-110)
[2020-08-16 16:43] LABS: Magnesium 1.6 mg/dL (1.7-2.3)
[2020-08-16] MEDS: famotidine 20 mg Tablet PO (17:42)
[2020-08-16 21:15] LABS: Glucose Point of Care 226 mg/dL (70-110)
[2020-08-17 04:00] VITALS: BP 105/72; PULSE 69; RESP 18; TEMP 37; O2SAT 96
[2020-08-17] MEDS: sodium chloride 0.9% 1,000 ML 100 ML IV (04:00)
[2020-08-17 05:34] LABS: Basophils % 0.4 %; Eosinophils # 0.1 10^3/uL (0.0-0.8); Eosinophils % 1.3 %; Hematocrit 36.6 % (37.0-47.0); Hemoglobin 12.3 g/dL (11.5-15.3); Lymphocytes # 2.4 10^3/uL (0.8-4.8); Lymphocytes % 31.3 %; Mean Corpuscular HGB Conc 33.6 g/dL (30.0-36.0); Mean Corpuscular Hemoglobin 27.5 pg (28.0-34.0); Mean Corpuscular Volume 81.9 fL (81-99); Mean Platelet Volume 11.6 fL (7.4-10.4); Monocytes # 0.6 10^3/uL (0.2-0.9); Monocytes % 7.8 %; Neutrophils # 4.56 10^3/uL (1.8-7.7); Neutrophils % 58.9 %; Nucleated Red Blood Cells % 0 %; Platelet Count 201 10^3/cmm (130-400); Red Blood Count 4.47 10^6/uL (4.1-5.3); Red Cell Distribution Width 12.6 % (12.1-15.1); White Blood Count 7.7 10^3/uL (4.0-10.0)
[2020-08-17 05:53] LABS: Alanine Aminotransferase 172 U/L (0-33); Albumin Level 2.6 g/dL (3.5-5.2); Alkaline Phosphatase 178 IU/L (35-105); Anion Gap 11.8 (5-19); Aspartate Amino Transferase 451 U/L (0-32); Blood Urea Nitrogen 12 mg/dL (6-20); Calcium 7.6 mg/dL (8.5-10.5); Carbon Dioxide 24 mmol/L (22-29); Chloride 108 mmol/L (98-107); Glomerular Filtration Rate 114.4 mL/min (90-130); Glucose 135 mg/dL (65-115); Osmolality Calculated 292 mOsm/kg (285-295); Potassium 3.8 mmol/L (3.5-5.1); Sodium 140 mmol/L (136-145); Total Bilirubin 0.4 mg/dL (0.15-1.2); Total Protein 5.6 g/dL (6.6-8.7)
[2020-08-17 06:00] VITALS: PULSE 73
[2020-08-17 06:22] LABS: Magnesium 1.3 mg/dL (1.7-2.3); Phosphorus 3.1 mg/dL (2.5-4.5); Thyroid Stimulating Hormone 1.63 uIU/mL (0.27-4.20)
[2020-08-17 06:38] LABS: Glucose Point of Care 152 mg/dL (70-110)
[2020-08-17 07:17] VITALS: BP 110/70; PULSE 70; RESP 18; TEMP 36.8; O2SAT 99
[2020-08-17] MEDS: famotidine 20 mg Tablet PO (08:37)
[2020-08-17] MEDS: insulin glargine 100 units/1 mL 25 UNIT SUBCUT (08:38)
--- NOTE | 2020-08-17 09:29 | US_ITS ---
WS: [id number] ULTRASOUND ABDOMEN CLINICAL INFORMATION: bile tracts, pancrease COMPARISON: None. FINDINGS: Liver Size: Normal. Craniocaudal length: 15.8 cm. Echogenicity: Normal. Surface nodularity: None. Mass (size and location): None. Bile ducts Intrahepatic ducts: Normal. Common bile duct diameter: 0.8 cm. Gallbladder Cholecystectomy Pancreas Not well visualized Spleen Splenomegaly: None. Craniocaudal length: 12.2 cm. Right kidney: Normal. Hydronephrosis: None. Size: 11.2 cm x 5.3 cm x 4.9 cm Left kidney: Normal. Hydronephrosis: None. Size: 9.8 cm x 5.3 cm x 4.6 cm. Abdominal aorta and IVC Visualized portions are normal. Ascites: None. US/US abdomen complete* [id number] IMPRESSION: 1. Normal liver. 2. Prior cholecystectomy. 3. No hydronephrosis in either kidney. 4. Normal spleen. 5. Pancreas not well visualized.
--- NOTE | 2020-08-17 09:45 | USCV_ITS ---
Donita Aguilar Age: 35 Gender: F : 1985 Exam Date: 08/17/2020 10:04 Ordering Phys: Shola Carrera MD Technologist: Sushila Reddy [place] [facility] [place]: EVAL FOR ENDOCARDITIS BP: / HR: 69 Rhythm: Sinus Technical Quality: Adequate MEASUREMENTS (Male / Female) Normal Values 2D ECHO LV Diastolic Diameter PLAX 3.8 cm 4.2 - 5.9 / 3.9 - 5.3 cm LV Systolic Diameter PLAX 2.6 cm LV Chamber Size 2.7 cm IVS Diastolic Thickness 1.1 cm 0.6 - 1.0 / 0.6 - 0.9 cm IVS Systolic Thickness 1.1 cm LVPW Diastolic Thickness 2.2 cm 0.6 - 1.0 / 0.6 - 0.9 cm LVPW Systolic Thickness 1.8 cm RV Chamber Size 3.2 cm LVOT Diameter 2.0 cm LV Ejection Fraction 2D Teich 62.0 % LV Ejection Fraction MOD 2C 62.6 % LV Ejection Fraction 2C AL 62.7 % LA Diameter 2.7 cm LA Width 3.0 cm LA Height 3.5 cm RA Width 2.6 cm RA Height 3.7 cm Aorta at Sinotubular Diameter 3.0 cm M-MODE LV Diastolic Diameter MM 4.9 cm 4.2 - 5.9 / 3.9 - 5.3 cm LV Systolic Diameter MM 3.5 cm LV Ejection Fraction MM Teich 55.9 % IVS Diastolic Thickness MM 0.8 cm 0.6 - 1.0 / 0.6 - 0.9 cm IVS Systolic Thickness MM 1.3 cm LVPW Diastolic Thickness MM 1.6 cm 0.6 - 1.0 / 0.6 - 0.9 cm LVPW Systolic Thickness MM 1.8 cm Aortic Annulus Diameter 2.5 cm LA Ao Ratio MM 1.2 MV E Point Septal Separation 0.4 cm DOPPLER AV Peak Velocity 132.0 cm/s LVOT Peak Velocity 106.0 cm/s AV Area Cont Eq vti 2.4 cm squared AV Area Cont Eq pk 2.6 cm squared MV Area PHT 4.4 cm squared Mitral E to A Ratio 1.2 MV E' Velocity 43.5 cm/s Mitral E to MV E' Ratio 4.8 Mitral E to LV E' Lateral Ratio 4.6 Mitral E to LV E' Septal Ratio 5.0 TR Peak Velocity 162.0 cm/s TR Peak Gradient 10.5 mmHg TV Peak E Velocity 73.0 cm/s Right Atrial Pressure 3.0 mmHg Pulmonary Artery Systolic Pressu 13.5 mmHg PV Peak Velocity 94.0 cm/s RV Acceleration Time 0.2 s RV Ejection Time 0.4 s RV AcT/ET 0.5 FINDINGS Left Ventricle Normal left ventricular size and systolic function, EF 67 %. Mild left ventricular hypertrophy. No regional wall motion abnormalities. Mild concentric left renal hypertrophy Right Ventricle The right ventricle is normal in size and function. Right Atrium The right atrium is normal in size. Left Atrium The left atrium is normal in size. Mitral Valve No gross abnormalities noted Aortic Valve No gross abnormalities noted Tricuspid Valve No gross abnormalities noted.trace tricuspid valve regurgitation. Pulmonic Valve No gross abnormalities noted Pericardium Normal pericardium without effusion. Aorta Normal ascending aorta dimension. CONCLUSIONS Normal left ventricular size and systolic function, EF 67 %. Mild left ventricular hypertrophy. No regional wall motion abnormalities. No intracardiac masses or vegetations No significant stenotic or regurgitant lesions Normal cardiac chamber sizes There is no pericardial effusion. Trace of tricuspid regurgitation Normal pulmonary artery pressure No significant change in the 2D findings from the study on 08/05/2017 Dr Gilberto Eugene MD FAC (Electronically Signed) Final Date: 17 August 2020 11:02 S
[2020-08-17 10:42] LABS: Amylase 36 U/L (28-100); Gamma Glutamyl Transferase 95 U/L (5-36); Lipase 38 U/L (13-60)
[2020-08-17 10:43] LABS: Acetaminophen < 5.0 ug/mL (10-30); Alcohol Level < 10 mg/dL (0-10)
[2020-08-17 10:54] VITALS: BP 154/98; PULSE 70; RESP 18; TEMP 36.6; O2SAT 99
[2020-08-17 11:18] LABS: HIV 1 & 2 Antibody Non-Reactive (Non-Reactiv); HIV 1 & 2 Antigen Non-Reactive (Non-Reactiv)
[2020-08-17] MEDS: magnesium sulfate premix 4 GM/100 ML PREMIX IV (11:21)
[2020-08-17 11:45] LABS: Glucose Point of Care 153 mg/dL (70-110)
[2020-08-17] MEDS: TRAMadol 50 mg Tablet 25 MG PO (12:17)
[2020-08-17 13:53] LABS: Hepatitis A Antibody IgM Non-Reactive (Nonreactive); Hepatitis B Core IgM Non-Reactive (Nonreactive); Hepatitis B Surface Antigen Non-Reactive (Nonreactive); Hepatitis C Virus Antibody Non-Reactive (Nonreactive)
--- NOTE | 2020-08-17 13:59 | PM.DCS ---
Discharge Providers Date of Admission: 08/16/20 14:41 Date of Discharge: August 17, 2020 Attending Provider at Admission: Shola Carrera MD Attending Provider at Discharge: Shola Carrera MD Primary Care Provider: SUZANNE Dias Diagnoses at Discharge Discharge Diagnosis (1) Hyperglycemia: Status: Acute (2) Dehydration: Status: Acute (3) Recurrent UTI: Status: Acute Reason for Visit Reason for Visit: NAUSEA, HARD TO STAND Hospital Course Hospital Course This is a 35-year-old female with type 1 diabetes mellitus, history of recurrent UTIs, hyperlipidemia, who presents to [facility] due to nausea, vomiting, dehydration Patient was admitted to [facility] for nausea, vomiting, dehydration, received IV hydration, electrolyte replacement, clinically improved. Discharged on instructions to drink plenty of electrolyte balance fluids, recheck CMP in 1 week. Patient also was found to be hyperglycemic on admission, blood sugars greater than 700, no significant evidence of DKA, managed with subcutaneous insulin, her blood sugars during her hospital admissions were between 100s to 200s. Discharged on instructions to continue her home insulin therapy, check blood sugars 3 times daily, record them in a blood sugar log, if blood sugar greater than [address] Ortega, if blood sugar less than 60 drink orange juice or eat a hard candy and call Dr. Ortega. During her hospital admission patient was found to have newly developed transaminitis, AST over 400, ALT over 100, blood alcohol levels were negative, acetaminophen levels within normal limits, liver ultrasound was within normal limits, hepatitis panel was negative, status post cholecystectomy, she had no complaints of abdominal pain. Possibly secondary to ceftriaxone? Patient will follow up with primary care provider in 1 week for recheck CMP and liver function studies, avoid alcohol, avoid NSAIDs, avoid hepatotoxic agents. Of note rheumatologic panel is pending on discharge which should be followed as outpatient Patient has a history of recurrent group B strep UTIs, had clinical evidence of UTI during her hospital mission, urine cultures are pending, but I suspect it is recurrent group B strep UTI, discharged on amoxicillin. Given her recurrent group B strep UTIs, there was concerns for immunocompromised state, her HIV panel was negative, hep panel was negative, she does have a history of drug abuse in the past, more than 3 years ago, no drug abuse currently, her cardiac echocardiogram was negative for any significant evidence of endocarditis. Patient should follow-up with urology as outpatient. Discharge Data Data Completed and Pending: Completed Studies During Hospitalization Category Date Time Status XR chest 1V maria luz ble [id number] Routine Exams 08/16/20 15:46 Completed CV echo complete* [id number] Routine Ultrasound 08/17/20 09:45 Completed US abdomen comple te* [id number] Stat Ultrasound 08/17/20 09:29 Completed Pending at discharge Category Date Time Status CHANELLE Profile Rheum atology Stat Lab 08/17/20 10:56 Received Drug Screen, Urin e Stat Lab 08/17/20 13:10 Received Magnesium AM LABS Lab 08/18/20 04:00 Ordered Magnesium AM LABS Lab 08/19/20 04:00 Ordered Phosphorus AM LAB S Lab 08/18/20 04:00 Ordered Phosphorus AM LAB S Lab 08/19/20 04:00 Ordered Urine Culture Sta t Lab 08/17/20 13:30 Ordered Labs from last 24 hours 08/17/20 08/17/20 08/17/20 13:10 11:10 10:56 WBC RBC Hgb Hct MCV MCH MCHC RDW Plt Count MPV Neut % (Auto) Lymph % (Auto) [place] % (Auto) Eos % (Auto) Baso % (Auto) Neut # (Auto) Lymph # (Auto) [place] # (Auto) Eos # (Auto) Baso # (Auto) Nucleated RBC % (a uto) Nucleated RBCs # Sodium Potassium Chloride Carbon Dioxide Anion Gap BUN Creatinine GFR Calculation Glucose POC Glucose 153 H Calculated Osmolal ity Calcium Phosphorus Magnesium Total Bilirubin GGT AST ALT Alkaline Phosphata se C-Reactive Protein Total Protein Albumin Globulin Amylase Lipase Procalcitonin TSH HCG, Qual Urine Color Urine Appearance Urine pH Ur Specific Gravit y Urine Protein Urine Glucose (UA) Urine Ketones Urine Blood Urine Nitrate Urine Bilirubin Urine Urobilinogen Ur Leukocyte Denise ase Urine RBC Urine WBC Ur Squamous Epith Cells Amorphous Sediment Urine Bacteria Urine Opiates Scre en Pending Acetaminophen Ur Barbiturates Sc reen Pending Ur Phencyclidine S crn Pending Ur Amphetamines Sc reen Pending U Benzodiazepines Scrn Pending Urine Cocaine Scre en Pending U Marijuana (THC) Screen Pending Ethyl Alcohol CHANELLE IFA Animal Tis Res Pending MARIBEL-1 Antibody Pending SS-A Antibody Pending SS-B Antibody Pending Sm (Jessica) Antibod y Pending ELECTRONIC CALIBRATION TECHNICIAN Antibody Pending Scl-70 Antibody Pending Anti-ds DNA IgG (C rith) Pending Centromere B Antib telly Pending Thyroid Peroxidase Ab Pending Complement C3c Pending Complement C4c Pending CH50 Classical [place] Pending Hepatitis A IgM Ab Hep Bs Antigen Hep B Core IgM Ab Hepatitis C Antibo dy HIV 1&2 Ab & HIV 1 Ag HIV 1&2 Antibody 08/17/20 08/17/20 08/17/20 06:35 04:41 04:41 WBC RBC Hgb Hct MCV MCH MCHC RDW Plt Count MPV Neut % (Auto) Lymph % (Auto) [place] % (Auto) Eos % (Auto) Baso % (Auto) Neut # (Auto) Lymph # (Auto) [place] # (Auto) Eos # (Auto) Baso # (Auto) Nucleated RBC % (a uto) Nucleated RBCs # Sodium Potassium Chloride Carbon Dioxide Anion Gap BUN Creatinine GFR Calculation Glucose POC Glucose 152 H Calculated Osmolal ity Calcium Phosphorus Magnesium Total Bilirubin GGT AST ALT Alkaline Phosphata se C-Reactive Protein Total Protein Albumin Globulin Amylase 36 Lipase 38 Procalcitonin TSH HCG, Qual Urine Color Urine Appearance Urine pH Ur Specific Gravit y Urine Protein Urine Glucose (UA) Urine Ketones Urine Blood Urine Nitrate Urine Bilirubin Urine Urobilinogen Ur Leukocyte Denise ase Urine RBC Urine WBC Ur Squamous Epith Cells Amorphous Sediment Urine Bacteria Urine Opiates Scre en Acetaminophen < 5.0 L Ur Barbiturates Sc reen Ur Phencyclidine S crn Ur Amphetamines Sc reen U Benzodiazepines Scrn Urine Cocaine Scre en U Marijuana (THC) Screen Ethyl Alcohol < 10 CHANELLE IFA Animal Tis Res MARIBEL-1 Antibody SS-A Antibody SS-B Antibody Sm (Jessica) Antibod y ELECTRONIC CALIBRATION TECHNICIAN Antibody Scl-70 Antibody Anti-ds DNA IgG (C rith) Centromere B Antib telly Thyroid Peroxidase Ab Complement C3c Complement C4c CH50 [place] Hepatitis A IgM Ab Non-reactive Hep Bs Antigen Non-reactive Hep B Core IgM Ab Non-reactive Hepatitis C Antibo dy Non-reactive HIV 1&2 Ab & HIV 1 Ag HIV 1&2 Antibody 08/17/20 08/17/20 08/17/20 04:41 04:41 04:41 WBC RBC Hgb Hct MCV MCH MCHC RDW Plt Count MPV Neut % (Auto) Lymph % (Auto) [place] % (Auto) Eos % (Auto) Baso % (Auto) Neut # (Auto) Lymph # (Auto) [place] # (Auto) Eos # (Auto) Baso # (Auto) Nucleated RBC % (a uto) Nucleated RBCs # Sodium 140 D Potassium 3.8 Chloride 108 H Carbon Dioxide 24 Anion Gap 11.8 BUN 12 Creatinine 0.6 GFR Calculation 114.4 Glucose 135 H POC Glucose Calculated Osmolal ity 292 Calcium 7.6 L Phosphorus 3.1 Magnesium 1.3 L Total Bilirubin 0.4 GGT 95 H AST 451 H ALT 172 H Alkaline Phosphata se 178 H C-Reactive Protein Total Protein 5.6 L Albumin 2.6 L Globulin 3.0 Amylase Lipase Procalcitonin TSH 1.63 HCG, Qual Urine Color Urine Appearance Urine pH Ur Specific Gravit y Urine Protein Urine Glucose (UA) Urine Ketones Urine Blood Urine Nitrate Urine Bilirubin Urine Urobilinogen Ur Leukocyte Denise ase Urine RBC Urine WBC Ur Squamous Epith Cells Amorphous Sediment Urine Bacteria Urine Opiates Scre en Acetaminophen Ur Barbiturates Sc reen Ur Phencyclidine S crn Ur Amphetamines Sc reen U Benzodiazepines Scrn Urine Cocaine Scre en U Marijuana (THC) Screen Ethyl Alcohol CHANELLE IFA Animal Tis Res MARIBEL-1 Antibody SS-A Antibody SS-B Antibody Sm (Jessica) Antibod y ELECTRONIC CALIBRATION TECHNICIAN Antibody Scl-70 Antibody Anti-ds DNA IgG (C rith) Centromere B Antib telly Thyroid Peroxidase Ab Complement C3c Complement C4c CH50 [facility] [place] Hepatitis A IgM Ab Hep Bs Antigen Hep B Core IgM Ab Hepatitis C Antibo dy HIV 1&2 Ab & HIV 1 Ag HIV 1&2 Antibody 08/17/20 08/16/20 08/16/20 04:41 21:11 16:37 WBC 7.7 RBC 4.47 Hgb 12.3 Hct 36.6 L MCV 81.9 MCH 27.5 L MCHC 33.6 RDW 12.6 Plt Count 201 MPV 11.6 H Neut % (Auto) 58.9 Lymph % (Auto) 31.3 [place] % (Auto) 7.8 Eos % (Auto) 1.3 Baso % (Auto) 0.4 Neut # (Auto) 4.56 Lymph # (Auto) 2.4 [place] # (Auto) 0.6 Eos # (Auto) 0.1 Baso # (Auto) 0.0 Nucleated RBC % (a uto) 0 Nucleated RBCs # 0.0 Sodium Potassium Chloride Carbon Dioxide Anion Gap BUN Creatinine GFR Calculation Glucose POC Glucose 226 H 340 H Calculated Osmolal ity Calcium Phosphorus Magnesium Total Bilirubin GGT AST ALT Alkaline Phosphata se C-Reactive Protein Total Protein Albumin Globulin Amylase Lipase Procalcitonin TSH HCG, Qual Urine Color Urine Appearance Urine pH Ur Specific Gravit y Urine Protein Urine Glucose (UA) Urine Ketones Urine Blood Urine Nitrate Urine Bilirubin Urine Urobilinogen Ur Leukocyte Denise ase Urine RBC Urine WBC Ur Squamous Epith Cells Amorphous Sediment Urine Bacteria Urine Opiates Scre en Acetaminophen Ur Barbiturates Sc reen Ur Phencyclidine S crn Ur Amphetamines Sc reen U Benzodiazepines Scrn Urine Cocaine Scre en U Marijuana (THC) Screen Ethyl Alcohol CHANELLE IFA Animal Tis Res MARIBEL-1 Antibody SS-A Antibody SS-B Antibody Sm (Jessica) Antibod y ELECTRONIC CALIBRATION TECHNICIAN Antibody Scl-70 Antibody Anti-ds DNA IgG (C rith) Centromere B Antib telly Thyroid Peroxidase Ab Complement C3c Complement C4c CH50 [place] Hepatitis A IgM Ab Hep Bs Antigen Hep B Core IgM Ab Hepatitis C Antibo dy HIV 1&2 Ab & HIV 1 Ag HIV 1&2 Antibody 08/16/20 08/16/20 08/16/20 14:21 14:00 14:00 WBC RBC Hgb Hct MCV MCH MCHC RDW Plt Count MPV Neut % (Auto) Lymph % (Auto) [place] % (Auto) Eos % (Auto) Baso % (Auto) Neut # (Auto) Lymph # (Auto) [place] # (Auto) Eos # (Auto) Baso # (Auto) Nucleated RBC % (a uto) Nucleated RBCs # Sodium Potassium Chloride Carbon Dioxide Anion Gap BUN Creatinine GFR Calculation Glucose POC Glucose 426 H Calculated Osmolal ity Calcium Phosphorus Magnesium Total Bilirubin GGT AST ALT Alkaline Phosphata se C-Reactive Protein Total Protein Albumin Globulin Amylase Lipase Procalcitonin TSH HCG, Qual Negative Urine Color Straw Urine Appearance Clear Urine pH 5 Ur Specific Gravit y 1.005 Urine Protein Neg Urine Glucose (UA) 4+ H Urine Ketones Negative Urine Blood Trace H Urine Nitrate Negative Urine Bilirubin Neg Urine Urobilinogen Norm Ur Leukocyte Denise ase Negative Urine RBC 0-4 H Urine WBC None Ur Squamous Epith Cells 0-4 H Amorphous Sediment Not Reportable Urine Bacteria 1+ H Urine Opiates Scre en Acetaminophen Ur Barbiturates Sc reen Ur Phencyclidine S crn Ur Amphetamines Sc reen U Benzodiazepines Scrn Urine Cocaine Scre en U Marijuana (THC) Screen Ethyl Alcohol CHANELLE IFA Animal Tis Res MARIBEL-1 Antibody SS-A Antibody SS-B Antibody Sm (Jessica) Antibod y ELECTRONIC CALIBRATION TECHNICIAN Antibody Scl-70 Antibody Anti-ds DNA IgG (C rith) Centromere B Antib telly Thyroid Peroxidase Ab Complement C3c Complement C4c CH50 [place] Hepatitis A IgM Ab Hep Bs Antigen Hep B Core IgM Ab Hepatitis C Antibo dy HIV 1&2 Ab & HIV 1 Ag HIV 1&2 Antibody 08/16/20 08/16/20 08/16/20 12:47 12:47 12:47 WBC RBC Hgb Hct MCV MCH MCHC RDW Plt Count MPV Neut % (Auto) Lymph % (Auto) [place] % (Auto) Eos % (Auto) Baso % (Auto) Neut # (Auto) Lymph # (Auto) [place] # (Auto) Eos # (Auto) Baso # (Auto) Nucleated RBC % (a uto) Nucleated RBCs # Sodium Potassium Chloride Carbon Dioxide Anion Gap BUN Creatinine GFR Calculation Glucose POC Glucose Calculated Osmolal ity Calcium Phosphorus Magnesium 1.6 L Total Bilirubin GGT AST ALT Alkaline Phosphata se C-Reactive Protein 0.7 Total Protein Albumin Globulin Amylase Lipase Procalcitonin 0.07 TSH HCG, Qual Urine Color Urine Appearance Urine pH Ur Specific Gravit y Urine Protein Urine Glucose (UA) Urine Ketones Urine Blood Urine Nitrate Urine Bilirubin Urine Urobilinogen Ur Leukocyte Denise ase Urine RBC Urine WBC Ur Squamous Epith Cells Amorphous Sediment Urine Bacteria Urine Opiates Scre en Acetaminophen Ur Barbiturates Sc reen Ur Phencyclidine S crn Ur Amphetamines Sc reen U Benzodiazepines Scrn Urine Cocaine Scre en U Marijuana (THC) Screen Ethyl Alcohol CHANELLE IFA Animal Tis Res MARIBEL-1 Antibody SS-A Antibody SS-B Antibody Sm (Jessica) Antibod y ELECTRONIC CALIBRATION TECHNICIAN Antibody Scl-70 Antibody Anti-ds DNA IgG (C rith) Centromere B Antib telly Thyroid Peroxidase Ab Complement C3c Complement C4c CH50 [place] Hepatitis A IgM Ab Hep Bs Antigen Hep B Core IgM Ab Hepatitis C Antibo dy HIV 1&2 Ab & HIV 1 Ag Non-reactive HIV 1&2 Antibody Non-reactive Vitals: Last Vital Signs Temp 97.9 F 08/17/20 10:54 Pulse 70 08/17/20 10:54 Resp 18 08/17/20 10:54 BP 154/98 08/17/20 10:54 Pulse Ox 99 08/17/20 10:54 Discharge Plan Discharge Patient Disposition: Home Condition: Stable Prescriptions: New amoxicillin 500 mg capsule 500 mg PO Q8H 5 Days Qty: 15 RF: 0 Continued insulin lispro [Humalog KwikPen Insulin] 100 unit/mL Insulin Pen See Rx Instructions .ROUTE .COMPLEX RF: 0 Lantus Solostar U-100 Insulin 100 unit/mL (3 mL) insulin pen 25 unit SUBCUT BID@0800,1600 RF: 0 Discharge Orders: Discharge Order (Routine); Ordered 08/17/20 Ordered By: Shola Carrera Other Ambulatory Orders: Comprehensive Metabolic Panel (Routine) Timeframe: 1 Week Facility: [facility] - Location: Lab - Main Lab Ordered By: Shola Carrera Referrals: Jimmy Rubio MD [Physician] - 2 weeks (recurrent uti) Tyrell Ortega MD [Physician] - 1 week Discharge Diet: Cardiac and Diabetic Discharge Activity: Resume usual activity Activity Restrictions/Additional Instructions: -Please follow-up with Dr. Ortega in 1 week -Please hydrate well drink plenty of electrolyte balance fluids -Follow-up with primary care provider, recheck CMP in 1 week for elevated liver function -Please avoid alcohol, any blood thinners, any ibuprofen -Continue insulin, monitor blood sugars 3 times daily -If blood sugar greater than [address] 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
[2020-08-17 14:20] LABS: Amphetamines Screen Urine Negative (Negative); Barbiturates Screen Urine Negative (Negative); Benzodiazepines Screen Urine Negative (Negative); Cocaine Screen Urine Negative (Negative); Opiate Screen Urine Positive (Negative); PCP Screen Urine Negative (Negative); THC Screen Urine Negative (Negative)
[2020-08-17 15:28] VITALS: BP 104/69; PULSE 73; RESP 19; TEMP 36.6; O2SAT 98
[2020-08-17 15:43] VITALS: BP 104/69; PULSE 73; RESP 19; TEMP 36.6; O2SAT 98
--- NOTE | 2020-08-17 15:54 | PC.NURSE ---
DISCHARGE INSTRUCTIONS DISCHARGE INSTRUCTIONS GIVEN PER THIS NURSE TO PT - VERBALIZES UNDERSTANDING
[2020-08-18 11:57] LABS: COMPLEMENT COMPONENT C3C 95 mg/dL (83-193); COMPLEMENT COMPONENT C4C 22 mg/dL (15-57)
[2020-08-18 14:31] LABS: CENTROMERE B ANTIBODY <1.0 NEG AI (<1.0 NEG); JO-1 ANTIBODY <1.0 NEG AI (<1.0 NEG); RNP ANTIBODY <1.0 NEG AI (<1.0 NEG); SCL-70 ANTIBODY <1.0 NEG AI (<1.0 NEG); SJOGREN'S ANTIBODY (SS-A) <1.0 NEG AI (<1.0 NEG); SM ANTIBODY <1.0 NEG AI (<1.0 NEG); SS-B <1.0 NEG AI (<1.0 NEG)
[2020-08-18 15:32] LABS: THYROID PEROXIDASE ANTIBODIES 2 IU/mL (<9)
--- NOTE | 2020-08-18 15:48 | PC.RESP ---
SMOKING CESSATION INFORMATION SENT TO PATIENT.
[2020-08-19 14:13] LABS: ANA SCREEN, IFA NEGATIVE (NEGATIVE)
[2020-08-23 00:42] LABS: DNA AB (DS) CRITHIDIA,IFA NEGATIVE (NEGATIVE)
== END 2020-08-17 15:54 | disposition home or self-care (01) ==
LOC: ER 13:44 → MEDSURG 14:51
PROVIDERS: Admitting Provider Family Medicine; Emergency Provider Family Medicine; PCP Nurse Practitioner Family; Visit Provider Family Medicine
DX: E10.65 Type 1 diabetes mellitus with hyperglycemia (principal); E86.0 Dehydration; N39.0 Urinary tract infection, site not specified; R74.01 Elevation of levels of liver transaminase levels; E78.5 Hyperlipidemia, unspecified; Z79.4 Long term (current) use of insulin; E11.40 Type 2 diabetes mellitus with diabetic neuropathy, unspecified; I10 Essential (primary) hypertension; F17.210 Nicotine dependence, cigarettes, uncomplicated
CPT/HCPCS: 36415; 36416; 36600; 71045; 76700; 80051; 80053; 80074; 80306; 80307; 81001; 81025; 82009; 82150; 82330; 82805; 82962; 82977; 83690; 83735; 84100; 84145; 84443; 85025; 86140; 86160; 86162; 86235; 86255; 86376; 87806; 93005; 93306; 96361; 96365; 96372; 96375; 96376; 99285; G0378; J0696; J1650; J1815 ×2; J2270; J3475; J7030

== ENCOUNTER 2020-08-19 10:34 | Outpatient (CLI) | payer BC, MEDICAID, SELFPAY ==
[2020-08-19 11:36] LABS: Glucose Fasting 314 mg/dL (74-109)
[2020-08-20 07:37] LABS: C-Peptide 0.48 ng/mL (0.80-3.85)
== END 2020-08-19 10:35 | disposition home or self-care (01) ==
PROVIDERS: PCP Nurse Practitioner Family; Visit Provider Internal Medicine
DX: E10.43 Type 1 diabetes mellitus with diabetic autonomic (poly)neuropathy (principal); E10.65 Type 1 diabetes mellitus with hyperglycemia; Z79.4 Long term (current) use of insulin; E16.0 Drug-induced hypoglycemia without coma; T38.3X5A Adverse effect of insulin and oral hypoglycemic [antidiabetic] drugs, initial encounter; E78.5 Hyperlipidemia, unspecified; K31.84 Gastroparesis; K90.0 Celiac disease; R74.01 Elevation of levels of liver transaminase levels; Z87.19 Personal history of other diseases of the digestive system
CPT/HCPCS: 36415; 82947; 84681; 99214

== ENCOUNTER 2020-10-30 16:46 | Emergency (ER) | payer BC, MEDICAID, SELFPAY ==
[2020-10-30 16:50] VITALS: BP 112/80; PULSE 93; RESP 18; TEMP 37.1; O2SAT 100; BMI 26.9
--- NOTE | 2020-10-30 17:36 | ED_ITS ---
Documented by User: SUZANNE Toledo 10/30/20 17:38 HPI - Weakness General: Chief complaint: Weakness Stated complaint: LEG NUMBNESS Time Seen by Provider: 10/30/20 17:28 History of Present Illness: HPI Narrative: Patient complain about neuropathy, [id number] in her feet for the last month been worse last week or 2. Her sugars are not well controlled she did get down about 300 this morning has not been to see her primary care provider about this neuropathy denies any other problems. MD Complaint: tingling (Feet) Onset (ago): week(s) Duration: constant and progressively worsening Severity: moderate Quality: tingling and numbness Relieving factors: none Context: other (Increased blood sugars) Associated symptoms: Reports no associated symptoms; Denies chest pain, chills, easy bruising, fever(s), headache(s), nausea or vomiting Review of Systems Const: Denies: fever(s), chills or body aches Eyes: Denies: change in vision or blurry vision ENMT: Denies: throat pain or nasal congestion Card: Denies: chest pain or dyspnea on exertion Resp: Denies: dyspnea, productive cough or non-productive cough GI: Denies: abdominal pain, nausea or vomiting Musc: Denies: extremity pain Skin/Breast: Denies: rash Neuro: Reports: other (Tingling in feet feel numb at times); Denies: headache(s) Psych: Denies: anxiety or depression Ramiro/Lymph: Denies: easy bruising PFSH ED PFSH: Medical History Anxiety Arnold-Chiari malformation Chronic headache Diabetic gastroparesis -continue Reglan Diabetic neuropathy associated with type 1 diabetes mellitus DKA (diabetic ketoacidoses) Exposure to severe acute respiratory syndrome coronavirus 2 (SARS-CoV-2) -COVID-19 negative (PCR) HTN (hypertension) Hyperglycemia Lymphadenitis Migraine headache Non-alcoholic fatty liver disease Pancreatitis PID (pelvic inflammatory disease) Pleural effusion 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 Pyelonephritis Recurrent UTI Respiratory failure Sepsis Type 1 diabetes mellitus Uncontrolled type 1 diabetes mellitus Ureterolithiasis Surgical History History of cholecystectomy History of endoscopy History of lung surgery -s/p LLL lobectomy secondary to cavitary pneumonia (2017) Family History Grandfather Diabetes Other Heart disease Hypertension Social History Smoking and tobacco status: current every day smoker cigarettes Packs smoked per day: 0.5 Second hand smoke exposure: Yes Alcohol intake: never Household members: children Housing: House Marital status: Single Current occupational status: unemployed Female Reproductive History: Date of last menstrual period: 07/25/20 Physical Exam Const: COMMON NORMALS: no acute distress, average body habitus and patient oriented x3 HENMT: COMMON NORMALS: normocephalic HEAD & SCALP: normal to inspection and normocephalic FACE & SINUS: normal facial exam Eye: COMMON NORMALS: conjunctivae normal GENERAL EYE: appearance normal, both eyes and all related structures CONJUNCTIVA: Yes conjunctivae normal Neck/C-Spine: COMMON NORMALS: no JVD Chest: COMMONS NORMALS: normal inspection of the chest Resp: COMMON NORMALS: normal respiratory effort Cardio: COMMON NORMALS: no JVD, regular rate and regular rhythm RATE: regular rate RHYTHM: regular rhythm GI: COMMON NORMALS: Normal to inspection, nondistended, normoactive bowel sounds present Extremity: COMMON NORMALS: normal to inspection and full ROM Neuro: COMMON NORMALS: patient oriented x3, moves all extremities, no focal motor deficits and no sensory deficits noted Course Vital Signs: Vital signs: Vital Signs Temperature 98.7 F 10/30/20 16:50 Pulse Rate 76 10/30/20 23:24 Respiratory Rate 17 10/30/20 23:24 Blood Pressure 93/60 10/30/20 23:24 Pulse Oximetry 99 10/30/20 23:24 MDM - Weakness Lab Data: Labs: Lab Results 10/30/20 10/30/20 10/30/20 Range/Units 18:03 18:03 18:03 WBC 6.9 (4.0-10.0) 10^3/ uL RBC 5.14 (4.1-5.3) 10^6/u L Hgb 14.5 (11.5-15.3) g/dL Hct 44.6 (37.0-47.0) % MCV 86.8 (81-99) fL MCH 28.2 (28.0-34.0) pg MCHC 32.5 (30.0-36.0) g/dL RDW 13.1 (12.1-15.1) % Plt Count 243 (130-400) 10^3/c mm MPV 11.3 H (7.4-10.4) fL Neut % (Auto) 60.6 % Lymph % (Auto) 31.5 % Clinch % (Auto) 5.5 % Eos % (Auto) 1.3 % Baso % (Auto) 0.7 % Neut # (Auto) 4.19 (1.8-7.7) 10^3/u L Lymph # (Auto) 2.2 (0.8-4.8) 10^3/u L Clinch # (Auto) 0.4 (0.2-0.9) 10^3/u L Eos # (Auto) 0.1 (0.0-0.8) 10^3/u L Baso # (Auto) 0.1 (0.0-0.1) 10^3/u L Nucleated RBC % (a uto) 0 % Nucleated RBCs # 0.0 /100WBC Sodium 128 L (136-145) mmol/L Potassium 4.6 (3.5-5.1) mmol/L Chloride 89 L (98-107) mmol/L Carbon Dioxide 26 (22-29) mmol/L Anion Gap 17.6 (5-19) BUN 10 (6-20) mg/dL Creatinine 0.9 (0.5-0.9) mg/dL GFR Calculation 71.7 L (90-130) mL/min Glucose 819 H* (65-115) mg/dL POC Glucose (70-110) mg/dL Calculated Osmolal ity 305 H (285-295) mOsm/k g Calcium 8.8 (8.5-10.5) mg/dL Total Bilirubin 0.2 (0.15-1.2) mg/dL AST 21 (0-32) U/L ALT 22 (0-33) U/L Alkaline Phosphata se 126 H (35-105) IU/L Total Protein 7.5 (6.6-8.7) g/dL Albumin 3.8 (3.5-5.2) g/dL Globulin 3.7 (1.3-4.6) g/dL Urine Color (Yellow) Urine Appearance (CLEAR) Urine pH (5-7) Ur Specific Gravit y (1.005-1.030) Urine Protein (Negative) Urine Glucose (UA) (Normal) Urine Ketones (Negative) Urine Blood (Negative) Urine Nitrate (Negative) Urine Bilirubin (Negative) Urine Urobilinogen (Negative) mg/dL Ur Leukocyte Denise ase (Negative) Urine RBC (0-2) /hpf Urine WBC (0-5) /hpf Ur Squamous Epith Cells (0-5) /hpf Amorphous Sediment Urine Bacteria (NONE) /hpf Urine Mucus /hpf Serum Ketones Negative (Negative) 10/30/20 10/30/20 10/30/20 Range/Units 18:10 20:36 21:25 WBC (4.0-10.0) 10^3/ uL RBC (4.1-5.3) 10^6/u L Hgb (11.5-15.3) g/dL Hct (37.0-47.0) % MCV (81-99) fL MCH (28.0-34.0) pg MCHC (30.0-36.0) g/dL RDW (12.1-15.1) % Plt Count (130-400) 10^3/c mm MPV (7.4-10.4) fL Neut % (Auto) % Lymph % (Auto) % Clinch % (Auto) % Eos % (Auto) % Baso % (Auto) % Neut # (Auto) (1.8-7.7) 10^3/u L Lymph # (Auto) (0.8-4.8) 10^3/u L Clinch # (Auto) (0.2-0.9) 10^3/u L Eos # (Auto) (0.0-0.8) 10^3/u L Baso # (Auto) (0.0-0.1) 10^3/u L Nucleated RBC % (a uto) % Nucleated RBCs # /100WBC Sodium (136-145) mmol/L Potassium (3.5-5.1) mmol/L Chloride (98-107) mmol/L Carbon Dioxide (22-29) mmol/L Anion Gap (5-19) BUN (6-20) mg/dL Creatinine (0.5-0.9) mg/dL GFR Calculation (90-130) mL/min Glucose (65-115) mg/dL POC Glucose 543 H* 471 H (70-110) mg/dL Calculated Osmolal ity (285-295) mOsm/k g Calcium (8.5-10.5) mg/dL Total Bilirubin (0.15-1.2) mg/dL AST (0-32) U/L ALT (0-33) U/L Alkaline Phosphata se (35-105) IU/L Total Protein (6.6-8.7) g/dL Albumin (3.5-5.2) g/dL Globulin (1.3-4.6) g/dL Urine Color Yellow (Yellow) Urine Appearance Sl cloudy A (CLEAR) Urine pH 5 (5-7) Ur Specific Gravit y 1.010 (1.005-1.030) Urine Protein Neg (Negative) Urine Glucose (UA) 4+ H (Normal) Urine Ketones Negative (Negative) Urine Blood Neg (Negative) Urine Nitrate Negative (Negative) Urine Bilirubin Neg (Negative) Urine Urobilinogen Norm (Negative) mg/dL Ur Leukocyte Denise ase Trace H (Negative) Urine RBC 0-4 H (0-2) /hpf Urine WBC 55-80 H (0-5) /hpf Ur Squamous Epith Cells >100 H (0-5) /hpf Amorphous Sediment Not Reportable Urine Bacteria 4+ H (NONE) /hpf Urine Mucus 2+ /hpf Serum Ketones (Negative) 10/30/20 Range/Units 22:10 WBC (4.0-10.0) 10^3/ uL RBC (4.1-5.3) 10^6/u L Hgb (11.5-15.3) g/dL Hct (37.0-47.0) % MCV (81-99) fL MCH (28.0-34.0) pg MCHC (30.0-36.0) g/dL RDW (12.1-15.1) % Plt Count (130-400) 10^3/c mm MPV (7.4-10.4) fL Neut % (Auto) % Lymph % (Auto) % Clinch % (Auto) % Eos % (Auto) % Baso % (Auto) % Neut # (Auto) (1.8-7.7) 10^3/u L Lymph # (Auto) (0.8-4.8) 10^3/u L Clinch # (Auto) (0.2-0.9) 10^3/u L Eos # (Auto) (0.0-0.8) 10^3/u L Baso # (Auto) (0.0-0.1) 10^3/u L Nucleated RBC % (a uto) % Nucleated RBCs # /100WBC Sodium (136-145) mmol/L Potassium (3.5-5.1) mmol/L Chloride (98-107) mmol/L Carbon Dioxide (22-29) mmol/L Anion Gap (5-19) BUN (6-20) mg/dL Creatinine (0.5-0.9) mg/dL GFR Calculation (90-130) mL/min Glucose (65-115) mg/dL POC Glucose 409 H (70-110) mg/dL Calculated Osmolal ity (285-295) mOsm/k g Calcium (8.5-10.5) mg/dL Total Bilirubin (0.15-1.2) mg/dL AST (0-32) U/L ALT (0-33) U/L Alkaline Phosphata se (35-105) IU/L Total Protein (6.6-8.7) g/dL Albumin (3.5-5.2) g/dL Globulin (1.3-4.6) g/dL Urine Color (Yellow) Urine Appearance (CLEAR) Urine pH (5-7) Ur Specific Gravit y (1.005-1.030) Urine Protein (Negative) Urine Glucose (UA) (Normal) Urine Ketones (Negative) Urine Blood (Negative) Urine Nitrate (Negative) Urine Bilirubin (Negative) Urine Urobilinogen (Negative) mg/dL Ur Leukocyte Denise ase (Negative) Urine RBC (0-2) /hpf Urine WBC (0-5) /hpf Ur Squamous Epith Cells (0-5) /hpf Amorphous Sediment Urine Bacteria (NONE) /hpf Urine Mucus /hpf Serum Ketones (Negative) Discharge Plan Discharge Patient Disposition: Home Clinical Impression: Acute hyperglycemia, Recurrent UTI Diabetic neuropathy Qualifiers: Diabetes mellitus type: type 1 Condition: Stable Prescriptions: New gabapentin 300 mg capsule 300 mg PO BID Qty: 60 RF: 0 Macrobid 100 mg capsule 100 mg PO BID 7 Days Qty: 14 RF: 0 No Action Lantus Solostar U-100 Insulin 100 unit/mL (3 mL) insulin pen 30 unit SUBCUT BID@0800,1600 Qty: 54 RF: 3 insulin lispro [Humalog KwikPen Insulin] 100 unit/mL insulin pen See Rx Instructions .ROUTE .COMPLEX Qty: 18 RF: 3 (DME) ReliOn Prime Test Strips Strip See Rx Instructions .ROUTE .MEDSUPPLY Qty: 360 RF: 3 (DME) pen needle, diabetic [Easy Comfort Pen Saxon] 31 gauge x 1/4 needle See Rx Instructions .ROUTE .MEDSUPPLY Qty: 450 RF: 3 Glucagon (HCl) Emergency Kit 1 mg recon soln 1 mg SUBCUT Q20M PRN (Reason: hypoglycemia) Qty: 3 RF: 3 Discharge Orders: Discharge ED (Routine); Ordered 10/30/20 Ordered By: Jak Larose Referrals: Elizabeth Dougherty FNP [Primary Care Provider] - 1-3 days Patient Instructions: Urinary Tract Infection in Women (ED), Diabetic Neuro concepción (ED), Diabetic Hyperglycemia (ED) Activity Restrictions/Additional Instructions: The best way to control neuropathy is to control blood sugars. Watch your sugar very closely and treat accordingly using your sliding scale. Drink plenty of water. Do not drink Gatorade, as it can significantly increase your blood sugar. Medication as directed for neuropathy. Return for any concerning symptoms. Coding Level of Care Code ED Fuel Quality Tech for Chg Fwd Exam Comprehensive Documented by User: Jak Larose DO 10/31/20 04:22 HPI - Weakness General: Chief complaint: Weakness Stated complaint: LEG NUMBNESS Time Seen by Provider: 10/30/20 17:28 PFS ED PFSH: Medical History Anxiety Arnold-Chiari malformation Chronic headache Diabetic gastroparesis -continue Reglan Diabetic neuropathy associated with type 1 diabetes mellitus DKA (diabetic ketoacidoses) Exposure to severe acute respiratory syndrome coronavirus 2 (SARS-CoV-2) -COVID-19 negative (PCR) HTN (hypertension) Hyperglycemia Lymphadenitis Migraine headache Non-alcoholic fatty liver disease Pancreatitis PID (pelvic inflammatory disease) Pleural effusion 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 Pyelonephritis Recurrent UTI Respiratory failure Sepsis Type 1 diabetes mellitus Uncontrolled type 1 diabetes mellitus Ureterolithiasis Surgical History History of cholecystectomy History of endoscopy History of lung surgery -s/p LLL lobectomy secondary to cavitary pneumonia (2017) Family History Grandfather Diabetes Other Heart disease Hypertension Social History Smoking and tobacco status: current every day smoker cigarettes Packs smoked per day: 0.5 Second hand smoke exposure: Yes Alcohol intake: never Household members: children Housing: House Marital status: Single Current occupational status: unemployed Course Vital Signs: Vital signs: Vital Signs Temperature 98.7 F 10/30/20 16:50 Pulse Rate 76 10/30/20 23:24 Respiratory Rate 17 10/30/20 23:24 Blood Pressure 93/60 10/30/20 23:24 Pulse Oximetry 99 10/30/20 23:24 MDM - Weakness MDM Narrative: Medical decision making narrative: 35-year-old female originally seen by SUZANNE Oakley. I agree with his history, evaluation and initial treatment. This lady has a critical blood sugar in the 800s. She, however, is not acidotic, there is no gap, and she is not vomiting. She has a sodium level of 128, likely representing pseudohyponatremia from hyperglycemia. Her bicarbonate level is 26. Her potassium is 4.6. Her creatinine is 0.9. She has received 2 L of fluid. She got initial bolus of IV insulin at 15 units, which decreased her sugar to the low 500s she is getting an additional IV push of insulin of 8 units, and we will check 45 minutes post to see what her sugar i s her weakness and neuropathy are likely due to hyperglycemia, she was counseled on this we will start her on some gabapentin for the neuropathy. She has been up walking in the ER. She feels much better post fluid infusion, and reduction of her sugar. She would like to go home. She will be discharged. Lab Data: Labs: Lab Results 10/30/20 10/30/20 10/30/20 Range/Units 18:03 18:03 18:03 WBC 6.9 (4.0-10.0) 10^3/ uL RBC 5.14 (4.1-5.3) 10^6/u L Hgb 14.5 (11.5-15.3) g/dL Hct 44.6 (37.0-47.0) % MCV 86.8 (81-99) fL MCH 28.2 (28.0-34.0) pg MCHC 32.5 (30.0-36.0) g/dL RDW 13.1 (12.1-15.1) % Plt Count 243 (130-400) 10^3/c mm MPV 11.3 H (7.4-10.4) fL Neut % (Auto) 60.6 % Lymph % (Auto) 31.5 % Clinch % (Auto) 5.5 % Eos % (Auto) 1.3 % Baso % (Auto) 0.7 % Neut # (Auto) 4.19 (1.8-7.7) 10^3/u L Lymph # (Auto) 2.2 (0.8-4.8) 10^3/u L Clinch # (Auto) 0.4 (0.2-0.9) 10^3/u L Eos # (Auto) 0.1 (0.0-0.8) 10^3/u L Baso # (Auto) 0.1 (0.0-0.1) 10^3/u L Nucleated RBC % (a uto) 0 % Nucleated RBCs # 0.0 /100WBC Sodium 128 L (136-145) mmol/L Potassium 4.6 (3.5-5.1) mmol/L Chloride 89 L (98-107) mmol/L Carbon Dioxide 26 (22-29) mmol/L Anion Gap 17.6 (5-19) BUN 10 (6-20) mg/dL Creatinine 0.9 (0.5-0.9) mg/dL GFR Calculation 71.7 L (90-130) mL/min Glucose 819 H* (65-115) mg/dL POC Glucose (70-110) mg/dL Calculated Osmolal ity 305 H (285-295) mOsm/k g Calcium 8.8 (8.5-10.5) mg/dL Total Bilirubin 0.2 (0.15-1.2) mg/dL AST 21 (0-32) U/L ALT 22 (0-33) U/L Alkaline Phosphata se 126 H (35-105) IU/L Total Protein 7.5 (6.6-8.7) g/dL Albumin 3.8 (3.5-5.2) g/dL Globulin 3.7 (1.3-4.6) g/dL Urine Color (Yellow) Urine Appearance (CLEAR) Urine pH (5-7) Ur Specific Gravit y (1.005-1.030) Urine Protein (Negative) Urine Glucose (UA) (Normal) Urine Ketones (Negative) Urine Blood (Negative) Urine Nitrate (Negative) Urine Bilirubin (Negative) Urine Urobilinogen (Negative) mg/dL Ur Leukocyte Denise ase (Negative) Urine RBC (0-2) /hpf Urine WBC (0-5) /hpf Ur Squamous Epith Cells (0-5) /hpf Amorphous Sediment Urine Bacteria (NONE) /hpf Urine Mucus /hpf Serum Ketones Negative (Negative) 10/30/20 10/30/20 10/30/20 Range/Units 18:10 20:36 21:25 WBC (4.0-10.0) 10^3/ uL RBC (4.1-5.3) 10^6/u L Hgb (11.5-15.3) g/dL Hct (37.0-47.0) % MCV (81-99) fL MCH (28.0-34.0) pg MCHC (30.0-36.0) g/dL RDW (12.1-15.1) % Plt Count (130-400) 10^3/c mm MPV (7.4-10.4) fL Neut % (Auto) % Lymph % (Auto) % Clinch % (Auto) % Eos % (Auto) % Baso % (Auto) % Neut # (Auto) (1.8-7.7) 10^3/u L Lymph # (Auto) (0.8-4.8) 10^3/u L Clinch # (Auto) (0.2-0.9) 10^3/u L Eos # (Auto) (0.0-0.8) 10^3/u L Baso # (Auto) (0.0-0.1) 10^3/u L Nucleated RBC % (a uto) % Nucleated RBCs # /100WBC Sodium (136-145) mmol/L Potassium (3.5-5.1) mmol/L Chloride (98-107) mmol/L Carbon Dioxide (22-29) mmol/L Anion Gap (5-19) BUN (6-20) mg/dL Creatinine (0.5-0.9) mg/dL GFR Calculation (90-130) mL/min Glucose (65-115) mg/dL POC Glucose 543 H* 471 H (70-110) mg/dL Calculated Osmolal ity (285-295) mOsm/k g Calcium (8.5-10.5) mg/dL Total Bilirubin (0.15-1.2) mg/dL AST (0-32) U/L ALT (0-33) U/L Alkaline Phosphata se (35-105) IU/L Total Protein (6.6-8.7) g/dL Albumin (3.5-5.2) g/dL Globulin (1.3-4.6) g/dL Urine Color Yellow (Yellow) Urine Appearance Sl cloudy A (CLEAR) Urine pH 5 (5-7) Ur Specific Gravit y 1.010 (1.005-1.030) Urine Protein Neg (Negative) Urine Glucose (UA) 4+ H (Normal) Urine Ketones Negative (Negative) Urine Blood Neg (Negative) Urine Nitrate Negative (Negative) Urine Bilirubin Neg (Negative) Urine Urobilinogen Norm (Negative) mg/dL Ur Leukocyte Denise ase Trace H (Negative) Urine RBC 0-4 H (0-2) /hpf Urine WBC 55-80 H (0-5) /hpf Ur Squamous Epith Cells >100 H (0-5) /hpf Amorphous Sediment Not Reportable Urine Bacteria 4+ H (NONE) /hpf Urine Mucus 2+ /hpf Serum Ketones (Negative) 10/30/20 Range/Units 22:10 WBC (4.0-10.0) 10^3/ uL RBC (4.1-5.3) 10^6/u L Hgb (11.5-15.3) g/dL Hct (37.0-47.0) % MCV (81-99) fL MCH (28.0-34.0) pg MCHC (30.0-36.0) g/dL RDW (12.1-15.1) % Plt Count (130-400) 10^3/c mm MPV (7.4-10.4) fL Neut % (Auto) % Lymph % (Auto) % Clinch % (Auto) % Eos % (Auto) % Baso % (Auto) % Neut # (Auto) (1.8-7.7) 10^3/u L Lymph # (Auto) (0.8-4.8) 10^3/u L Clinch # (Auto) (0.2-0.9) 10^3/u L Eos # (Auto) (0.0-0.8) 10^3/u L Baso # (Auto) (0.0-0.1) 10^3/u L Nucleated RBC % (a uto) % Nucleated RBCs # /100WBC Sodium (136-145) mmol/L Potassium (3.5-5.1) mmol/L Chloride (98-107) mmol/L Carbon Dioxide (22-29) mmol/L Anion Gap (5-19) BUN (6-20) mg/dL Creatinine (0.5-0.9) mg/dL GFR Calculation (90-130) mL/min Glucose (65-115) mg/dL POC Glucose 409 H (70-110) mg/dL Calculated Osmolal ity (285-295) mOsm/k g Calcium (8.5-10.5) mg/dL Total Bilirubin (0.15-1.2) mg/dL AST (0-32) U/L ALT (0-33) U/L Alkaline Phosphata se (35-105) IU/L Total Protein (6.6-8.7) g/dL Albumin (3.5-5.2) g/dL Globulin (1.3-4.6) g/dL Urine Color (Yellow) Urine Appearance (CLEAR) Urine pH (5-7) Ur Specific Gravit y (1.005-1.030) Urine Protein (Negative) Urine Glucose (UA) (Normal) Urine Ketones (Negative) Urine Blood (Negative) Urine Nitrate (Negative) Urine Bilirubin (Negative) Urine Urobilinogen (Negative) mg/dL Ur Leukocyte Denise ase (Negative) Urine RBC (0-2) /hpf Urine WBC (0-5) /hpf Ur Squamous Epith Cells (0-5) /hpf Amorphous Sediment Urine Bacteria (NONE) /hpf Urine Mucus /hpf Serum Ketones (Negative) Discharge Plan Discharge Patient Disposition: Home Clinical Impression: Acute hyperglycemia, Recurrent UTI Diabetic neuropathy Qualifiers: Diabetes mellitus type: type 1 Condition: Stable Prescriptions: New gabapentin 300 mg capsule 300 mg PO BID Qty: 60 RF: 0 Macrobid 100 mg capsule 100 mg PO BID 7 Days Qty: 14 RF: 0 No Action Lantus Solostar U-100 Insulin 100 unit/mL (3 mL) insulin pen 30 unit SUBCUT BID@0800,1600 Qty: 54 RF: 3 insulin lispro [Humalog KwikPen Insulin] 100 unit/mL insulin pen See Rx Instructions .ROUTE .COMPLEX Qty: 18 RF: 3 (DME) ReliOn Prime Test Strips Strip See Rx Instructions .ROUTE .MEDSUPPLY Qty: 360 RF: 3 (DME) pen needle, diabetic [Easy Comfort Pen Saxon] 31 gauge x 1/4 needle See Rx Instructions .ROUTE .MEDSUPPLY Qty: 450 RF: 3 Glucagon (HCl) Emergency Kit 1 mg recon soln 1 mg SUBCUT Q20M PRN (Reason: hypoglycemia) Qty: 3 RF: 3 Discharge Orders: Discharge ED (Routine); Ordered 10/30/20 Ordered By: Jak Larsoe Referrals: Elizabeth Dougherty FNP [Primary Care Provider] - 1-3 days Patient Instructions: Urinary Tract Infection in Women (ED), Diabetic Neuropathy (ED), Diabetic Hyperglycemia (ED) Activity Restrictions/Additional Instructions: The best way to control neuropathy is to control blood sugars. Watch your sugar very closely and treat accordingly using your sliding scale. Drink plenty of water. Do not drink Gatorade, as it can significantly increase your blood sugar. Medication as directed for neuropathy. Return for any concerning symptoms. Coding Level of Care Code ED Fuel Quality Tech for Reji Fwd Exam Comprehensive
[2020-10-30] MEDS: gabapentin 300 mg Capsule PO (17:57)
[2020-10-30 18:11] LABS: Basophils # 0.1 10^3/uL (0.0-0.1); Basophils % 0.7 %; Eosinophils # 0.1 10^3/uL (0.0-0.8); Eosinophils % 1.3 %; Hematocrit 44.6 % (37.0-47.0); Hemoglobin 14.5 g/dL (11.5-15.3); Lymphocytes # 2.2 10^3/uL (0.8-4.8); Lymphocytes % 31.5 %; Mean Corpuscular HGB Conc 32.5 g/dL (30.0-36.0); Mean Corpuscular Hemoglobin 28.2 pg (28.0-34.0); Mean Corpuscular Volume 86.8 fL (81-99); Mean Platelet Volume 11.3 fL (7.4-10.4); Monocytes # 0.4 10^3/uL (0.2-0.9); Monocytes % 5.5 %; Neutrophils # 4.19 10^3/uL (1.8-7.7); Neutrophils % 60.6 %; Nucleated Red Blood Cells % 0 %; Platelet Count 243 10^3/cmm (130-400); Red Blood Count 5.14 10^6/uL (4.1-5.3); Red Cell Distribution Width 13.1 % (12.1-15.1); White Blood Count 6.9 10^3/uL (4.0-10.0)
[2020-10-30 18:18] VITALS: BP 128/83; PULSE 87; O2SAT 97
[2020-10-30 18:28] LABS: Alanine Aminotransferase 22 U/L (0-33); Albumin Level 3.8 g/dL (3.5-5.2); Alkaline Phosphatase 126 IU/L (35-105); Anion Gap 17.6 (5-19); Aspartate Amino Transferase 21 U/L (0-32); Blood Urea Nitrogen 10 mg/dL (6-20); Calcium 8.8 mg/dL (8.5-10.5); Carbon Dioxide 26 mmol/L (22-29); Chloride 89 mmol/L (98-107); Globulin 3.7 g/dL (1.3-4.6); Glomerular Filtration Rate 71.7 mL/min (90-130); Potassium 4.6 mmol/L (3.5-5.1); Sodium 128 mmol/L (136-145); Total Bilirubin 0.2 mg/dL (0.15-1.2); Total Protein 7.5 g/dL (6.6-8.7)
[2020-10-30 18:37] LABS: Osmolality Calculated 305 mOsm/kg (285-295)
[2020-10-30 18:38] LABS: Glucose 819 mg/dL (65-115)
[2020-10-30 18:39] LABS: Add Urine Microscopic? YES; Bilirubin Urine Neg (Negative); Blood Urine Neg (Negative); Glucose Urine UA 4+ (Normal); Ketones Urine Negative (Negative); Leukocyte Esterase Urine Trace (Negative); Nitrate Urine Negative (Negative); Protein Urine Neg (Negative); Urine Color Yellow (Yellow); Urobilinogen Urine Norm (Negative); pH Urine 5 (5-7)
[2020-10-30 18:42] LABS: Add Urine Culture? No; Bacteria Urine 4+ /hpf; Mucus Urine 2+ /hpf; RBC Urine 0-4 /hpf (0-2); Squamous Epithelial Cell Urine >100 /hpf (0-5); WBC Urine 55-80 /hpf (0-5)
[2020-10-30 18:58] LABS: Ketone (Acetest) Serum Negative (Negative)
[2020-10-30] MEDS: sodium chloride 0.9% 1,000 ML 999 ML IV ×4 (19:35→23:01)
[2020-10-30] MEDS: insulin regular-human 100 units/1 mL 15 UNIT IVP (19:37)
[2020-10-30 20:42] LABS: Glucose Point of Care 543 mg/dL (70-110)
[2020-10-30 21:30] LABS: Glucose Point of Care 471 mg/dL (70-110)
[2020-10-30 21:31] VITALS: RESP 22
[2020-10-30] MEDS: morphine 4 mg/mL SDV 1 mL IVP (21:31)
[2020-10-30] MEDS: ondansetron 2 mg/ML SDV 2 mL 4 MG IVP (21:31)
[2020-10-30] MEDS: insulin regular-human 100 units/1 mL 8 UNIT IVP (21:34)
[2020-10-30 22:15] LABS: Glucose Point of Care 409 mg/dL (70-110)
[2020-10-30 23:02] VITALS: BP 88/59; PULSE 70; RESP 18; O2SAT 97
[2020-10-30 23:24] VITALS: BP 93/60; PULSE 76; RESP 17; O2SAT 99
== END 2020-10-30 23:35 | disposition home or self-care (01) ==
PROVIDERS: Nurse Practitioner Family; Emergency Provider Emergency Medicine; PCP Nurse Practitioner Family
DX: N39.0 Urinary tract infection, site not specified (principal); E10.65 Type 1 diabetes mellitus with hyperglycemia; E10.40 Type 1 diabetes mellitus with diabetic neuropathy, unspecified; Z79.4 Long term (current) use of insulin; I10 Essential (primary) hypertension; Z87.440 Personal history of urinary (tract) infections; F17.210 Nicotine dependence, cigarettes, uncomplicated
CPT/HCPCS: 36415; 36416; 80053; 81001; 82009; 82962; 85025; 96361; 96374; 96375; 96376; 99284; J1815; J2270; J2405; J7030

== ENCOUNTER 2020-11-05 13:46 | Inpatient (IN) | payer BC, MEDICAID, SELFPAY ==
[2020-11-05] VITALS (19 sets, daily range): BP systolic 85–141; BP diastolic 55–97; PULSE 79–97; RESP 12–23; TEMP 37.1–37.4; O2SAT 91–100; BMI 26.9
--- NOTE | 2020-11-05 13:58 | CTR_ITS ---
PROCEDURE INFORMATION: Exam: CT Abdomen And Pelvis With Contrast Exam date and time: 11/05/2020 3:00 PM Age: 35 years old Clinical indication: Abdominal pain; Other: Rlq; Prior surgery; Surgery date: 6+ months; Surgery type: Gb; Additional info: Rlq pain TECHNIQUE: Imaging protocol: Computed tomography of the abdomen and pelvis with contrast. Radiation optimization: All CT scans at this facility use at least one of these dose optimization techniques: automated exposure control; mA and/or kV adjustment per patient size (includes targeted exams where dose is matched to clinical indication); or iterative reconstruction. Contrast material: OMNIPAQUE 300; Contrast volume: 95 ml; Contrast route: INTRAVENOUS (IV); COMPARISON: CT abdomen pelvis w con* [id number] 07/01/2020 10:06 PM RADIATION DOSE METRICS: Total DLP (mGy-cm): 887.64 FINDINGS: Mediastinal space: There is mucosal thickening of the distal esophagus. Liver: Regional decreased attenuation of the left hepatic lobe at the ligamentum teres suggestive of focal fatty infiltration. Gallbladder and bile ducts: The gallbladder has been removed. Pancreas: Normal. No ductal dilation. Spleen: Normal. No splenomegaly. Adrenal glands: Normal. No mass. Kidneys and ureters: Normal. No hydronephrosis. Stomach and bowel: The stomach is distended and filled with debris. There is mucosal thickening of the distal stomach. Appendix: A normal appendix is identified. Intraperitoneal space: Unremarkable. No free air. No significant fluid collection. Vasculature: Unremarkable. No abdominal aortic aneurysm. Lymph nodes: Unremarkable. No enlarged lymph nodes. Urinary bladder: Bladder wall enhances somewhat prominently. Reproductive: Unremarkable as visualized. Bones/joints: Unremarkable. No acute fracture. Soft tissues: There is mild edema in the subcutaneous soft tissues surrounding the lower abdomen and pelvis. CT/CT abdomen pelvis w con* [id number] IMPRESSION: 1. There is mucosal thickening of the distal esophagus and distal stomach. Findings are consistent with a nonspecific esophagitis/gastritis. The stomach is distended and filled with debris. 2. Bladder wall enhances somewhat prominently raising concern for cystitis. Please correlate clinically. Radiation Dose CTDIVOL = (mGy): DLP = 887.64 (mGy-cm)
--- NOTE | 2020-11-05 14:00 | W.ED.ABDPA2 ---
HPI - Abdominal Pain General: Chief Complaint: Abdominal Pain Stated Complaint: BAD ABD PAIN Time Seen by Provider: 11/05/20 13:53 Source: patient Mode of arrival: ambulatory Limitations: no limitations History of Present Illness: HPI narrative: This is a 35-year-old female patient with a history of diabetes mellitus who presents to the emergency department with right-sided abdominal pain. Pain started yesterday and has associated diarrhea with the pain. Pain is mainly in her right lower quadrant area. She has nausea but no vomiting. She denies a fever. No blood in her stools but stools are mucoid. MD elicited complaint: abdominal pain Onset (ago): day(s) (1) Pain Consistency: constant Location: RLQ Severity: severe Quality: stabbing Radiation: none Exacerbating factors: nothing Relieving factors: nothing Associated Symptoms: Reports diarrhea, dysuria and nausea; Denies anorexia, belching, bloating, change in bowel habits, change in stool character, chills, coffee ground emesis, constipation, GI cramping, dyspepsia, excessive flatus, fever(s), heartburn, hematochezia, hematuria, hematemesis, fecal incontinence, loose stools, melena, poor appetite, syncope and vomiting Related Data: Date of Last Menstrual Period: 07/25/20 Review of Systems General: Reports: 10 or more systems reviewed and unremarkable except in HPI and below Const: Denies: fever(s) or chills Card: Denies: syncope GI: Reports: nausea and diarrhea; Denies: vomiting, hematemesis, coffee ground emesis, heartburn, constipation, bloating, GI cramping, belching, excessive flatus, fecal incontinence, change in bowel habits, change in stool character, hematochezia or melena : Reports: dysuria; Denies: hematuria PFS ED PFSH: Medical History Anxiety Arnold-Chiari malformation Chronic headache Diabetic gastroparesis -continue Reglan Diabetic neuropathy associated with type 1 diabetes mellitus DKA (diabetic ketoacidoses) Exposure to severe acute respiratory syndrome coronavirus 2 (SARS-CoV-2) -COVID-19 negative (PCR) HTN (hypertension) Hyperglycemia Lymphadenitis Migraine headache Non-alcoholic fatty liver disease Pancreatitis PID (pelvic inflammatory disease) Pleural effusion 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 Pyelonephritis Recurrent UTI Respiratory failure Sepsis Type 1 diabetes mellitus Uncontrolled type 1 diabetes mellitus Ureterolithiasis Surgical History History of cholecystectomy History of endoscopy History of lung surgery -s/p LLL lobectomy secondary to cavitary pneumonia (2017) Family History Grandfather Diabetes Other Heart disease Hypertension Social History Smoking and tobacco status: current every day smoker cigarettes Packs smoked per day: 0.5 Second hand smoke exposure: Yes Alcohol intake: never Household members: children Housing: House Marital status: Single Current occupational status: unemployed Female Reproductive History: Date of last menstrual period: 07/25/20 Physical Exam Const: COMMON NORMALS: no acute distress, average body habitus, patient oriented x3, no limitations, healthy appearing, alert and well nourished HENMT: COMMON NORMALS: normocephalic, atraumatic and moist oral mucous membranes HEAD & SCALP: normocephalic and atraumatic Neck/C-Spine: COMMON NORMALS: no meningeal signs and no JVD Resp: COMMON NORMALS: normal respiratory effort, No retractions, No use of accessory muscles, clear to auscultation bilaterally and percussion normal AUSCULTATION: clear to auscultation bilaterally PERCUSSION: percussion normal Cardio: COMMON NORMALS: no JVD, regular rate, regular rhythm, S1 normal heart sound present, S2 normal heart sound present, No gallops present (Cardio), No clicks present (Cardio), No murmurs present (Cardio), No rub (Cardio) and Peripheral pulses 2+ throughout RATE: regular rate RHYTHM: regular rhythm HEART SOUNDS: S1 normal heart sound present and S2 normal heart sound present PERIPHERAL PULSES: Peripheral pulses 2+ throughout GI: COMMON NORMALS: Normal to inspection, nondistended, normoactive bowel sounds present, Soft to palpation, No hepatosplenomegaly present, no masses and no bruits PALPATION: Yes Soft to palpation, Yes Tenderness to palpation present (GI) Details: RLQ and Yes No hepatosplenomegaly present Extremity: COMMON NORMALS: normal to inspection, full ROM, capillary refill normal, no calf tenderness and no pedal edema Neuro: COMMON NORMALS: patient oriented x3 SENSORIUM/ORIENTATION: Yes alert MENINGEAL SIGNS: Yes no meningeal signs Skin: COMMON NORMALS: no rashes or lesions noted, no wounds, turgor normal, no jaundice, no petechiae and no mottling GENERAL SKIN EXAM: no rashes or lesions noted and turgor normal Course Reevaluation(s): Reevaluation #1: Discussed her lab and imaging findings with her. Advised that she has a UTI and is probably septic from that also. Lactic acid elevated, And CT scan also confirms cystitis. She also has gastritis/esophagitis. Advised that she will need to be admitted to the hospital for further evaluation and management and she voiced understanding and is in agreement with the plan. Time: 16:45 Consultations: Consultation #1: Discussed the patient with Dr. Díaz, hospitalist and he kindly accepted the patient to his service. Time: 16:39 Vital Signs: Vital signs: Vital Signs Temperature 99.3 F 11/05/20 20:49 Pulse Rate 84 11/05/20 22:15 Respiratory Rate 12 11/05/20 20:30 Blood Pressure 109/72 11/05/20 20:30 Pulse Oximetry 91 11/05/20 20:30 MDM - Abdominal Pain MDM Narrative: Medical decision making narrative: 35-year-old insulin-dependent diabetic who presents to the emergency department with abdominal pain, diarrhea. Evaluation in the emergency department shows she is septic, from a urinary tract infection. She is also severely hyperglycemic. She is admitted to the ICU for further evaluation and management. Medical Records: Attestation: I reviewed the patient's medical records. Lab Data: Attestation: I reviewed the patient's lab results. Labs: Lab Results 11/05/20 11/05/20 11/05/20 Range/Units 14:25 14:25 15:21 WBC 10.7 H (4.0-10.0) 10^3/ uL RBC 4.97 (4.1-5.3) 10^6/u L Hgb 14.0 (11.5-15.3) g/dL Hct 43.1 (37.0-47.0) % MCV 86.7 (81-99) fL MCH 28.2 (28.0-34.0) pg MCHC 32.5 (30.0-36.0) g/dL RDW 13.0 (12.1-15.1) % Plt Count 239 (130-400) 10^3/c mm MPV 11.6 H (7.4-10.4) fL Neut % (Auto) 70.9 % Lymph % (Auto) 22.8 % [place] % (Auto) 4.7 % Eos % (Auto) 0.8 % Baso % (Auto) 0.5 % Neut # (Auto) 7.62 (1.8-7.7) 10^3/u L Lymph # (Auto) 2.5 (0.8-4.8) 10^3/u L [place] # (Auto) 0.5 (0.2-0.9) 10^3/u L Eos # (Auto) 0.1 (0.0-0.8) 10^3/u L Baso # (Auto) 0.1 (0.0-0.1) 10^3/u L Nucleated RBC % (a uto) 0 % Nucleated RBCs # 0.0 /100WBC Sodium (136-145) mmol/L Potassium (3.5-5.1) mmol/L Chloride (98-107) mmol/L Carbon Dioxide (22-29) mmol/L Anion Gap (5-19) BUN (6-20) mg/dL Creatinine (0.5-0.9) mg/dL GFR Calculation (90-130) mL/min Glucose (65-115) mg/dL Calculated Osmolal ity (285-295) mOsm/k g Lactate (0.5-2.2) mmol/L Calcium (8.5-10.5) mg/dL Total Bilirubin (0.15-1.2) mg/dL GGT (5-36) U/L AST (0-32) U/L ALT (0-33) U/L Alkaline Phosphata se (35-105) IU/L C-Reactive Protein (0.0-4.9) mg/L Total Protein (6.6-8.7) g/dL Albumin (3.5-5.2) g/dL Globulin (1.3-4.6) g/dL Lipase (13-60) U/L HCG, Qual Negative (Negative) Urine Color Colorless (Yellow) Urine Appearance Hazy A (CLEAR) Urine pH 5 (5-7) Ur Specific Gravit y 1.010 (1.005-1.030) Urine Protein Neg (Negative) Urine Glucose (UA) 4+ H (Normal) Urine Ketones Negative (Negative) Urine Blood 2+ H (Negative) Urine Nitrate Negative (Negative) Urine Bilirubin Neg (Negative) Urine Urobilinogen Norm (Negative) mg/dL Ur Leukocyte Denise ase 1+ H (Negative) Urine RBC 0-4 H (0-2) /hpf Urine WBC 25-40 H (0-5) /hpf Ur Squamous Epith Cells 0-4 H (0-5) /hpf Amorphous Sediment Not Reportable Urine Bacteria 2+ H (NONE) /hpf Serum Ketones (Negative) 11/05/20 11/05/20 11/05/20 Range/Units 15:21 15:21 15:21 WBC (4.0-10.0) 10^3/ uL RBC (4.1-5.3) 10^6/u L Hgb (11.5-15.3) g/dL Hct (37.0-47.0) % MCV (81-99) fL MCH (28.0-34.0) pg MCHC (30.0-36.0) g/dL RDW (12.1-15.1) % Plt Count (130-400) 10^3/c mm MPV (7.4-10.4) fL Neut % (Auto) % Lymph % (Auto) % [place] % (Auto) % Eos % (Auto) % Baso % (Auto) % Neut # (Auto) (1.8-7.7) 10^3/u L Lymph # (Auto) (0.8-4.8) 10^3/u L [place] # (Auto) (0.2-0.9) 10^3/u L Eos # (Auto) (0.0-0.8) 10^3/u L Baso # (Auto) (0.0-0.1) 10^3/u L Nucleated RBC % (a uto) % Nucleated RBCs # /100WBC Sodium 128 L (136-145) mmol/L Potassium 4.6 (3.5-5.1) mmol/L Chloride 89 L (98-107) mmol/L Carbon Dioxide 25 (22-29) mmol/L Anion Gap 18.6 (5-19) BUN 10 (6-20) mg/dL Creatinine 1.2 H (0.5-0.9) mg/dL GFR Calculation 51.4 L (90-130) mL/min Glucose 729 H* (65-115) mg/dL Calculated Osmolal ity 300 H (285-295) mOsm/k g Lactate 6.5 H* (0.5-2.2) mmol/L Calcium 8.4 L (8.5-10.5) mg/dL Total Bilirubin 0.2 (0.15-1.2) mg/dL GGT (5-36) U/L AST 28 (0-32) U/L ALT 32 (0-33) U/L Alkaline Phosphata se 150 H (35-105) IU/L C-Reactive Protein 0.3 (0.0-4.9) mg/L Total Protein 7.5 (6.6-8.7) g/dL Albumin 3.5 (3.5-5.2) g/dL Globulin 4.0 (1.3-4.6) g/dL Lipase 43 (13-60) U/L HCG, Qual Cancelled (Negative) Urine Color (Yellow) Urine Appearance (CLEAR) Urine pH (5-7) Ur Specific Gravit y (1.005-1.030) Urine Protein (Negative) Urine Glucose (UA) (Normal) Urine Ketones (Negative) Urine Blood (Negative) Urine Nitrate (Negative) Urine Bilirubin (Negative) Urine Urobilinogen (Negative) mg/dL Ur Leukocyte Denise ase (Negative) Urine RBC (0-2) /hpf Urine WBC (0-5) /hpf Ur Squamous Epith Cells (0-5) /hpf Amorphous Sediment Urine Bacteria (NONE) /hpf Serum Ketones (Negative) 11/05/20 11/05/20 Range/Units 15:21 15:28 WBC (4.0-10.0) 10^3/ uL RBC (4.1-5.3) 10^6/u L Hgb (11.5-15.3) g/dL Hct (37.0-47.0) % MCV (81-99) fL MCH (28.0-34.0) pg MCHC (30.0-36.0) g/dL RDW (12.1-15.1) % Plt Count (130-400) 10^3/c mm MPV (7.4-10.4) fL Neut % (Auto) % Lymph % (Auto) % [place] % (Auto) % Eos % (Auto) % Baso % (Auto) % Neut # (Auto) (1.8-7.7) 10^3/u L Lymph # (Auto) (0.8-4.8) 10^3/u L [place] # (Auto) (0.2-0.9) 10^3/u L Eos # (Auto) (0.0-0.8) 10^3/u L Baso # (Auto) (0.0-0.1) 10^3/u L Nucleated RBC % (a uto) % Nucleated RBCs # /100WBC Sodium (136-145) mmol/L Potassium (3.5-5.1) mmol/L Chloride (98-107) mmol/L Carbon Dioxide (22-29) mmol/L Anion Gap (5-19) BUN (6-20) mg/dL Creatinine (0.5-0.9) mg/dL GFR Calculation (90-130) mL/min Glucose (65-115) mg/dL Calculated Osmolal ity (285-295) mOsm/k g Lactate (0.5-2.2) mmol/L Calcium (8.5-10.5) mg/dL Total Bilirubin (0.15-1.2) mg/dL GGT 46 H (5-36) U/L AST (0-32) U/L ALT (0-33) U/L Alkaline Phosphata se (35-105) IU/L C-Reactive Protein (0.0-4.9) mg/L Total Protein (6.6-8.7) g/dL Albumin (3.5-5.2) g/dL Globulin (1.3-4.6) g/dL Lipase (13-60) U/L HCG, Qual (Negative) Urine Color (Yellow) Urine Appearance (CLEAR) Urine pH (5-7) Ur Specific Gravit y (1.005-1.030) Urine Protein (Negative) Urine Glucose (UA) (Normal) Urine Ketones (Negative) Urine Blood (Negative) Urine Nitrate (Negative) Urine Bilirubin (Negative) Urine Urobilinogen (Negative) mg/dL Ur Leukocyte Denise ase (Negative) Urine RBC (0-2) /hpf Urine WBC (0-5) /hpf Ur Squamous Epith Cells (0-5) /hpf Amorphous Sediment Urine Bacteria (NONE) /hpf Serum Ketones Negative (Negative) Imaging Data ^: CT Abd/Pel: Attestation: I personally reviewed and interpreted this imaging study as follows: Radiologist's impression: [facility] [place], [place] [address]AN Scan ReportSigned Patient: Donita Aguilar #: [id number]: 1985Acct#:[id number]/Sex: 35 / FADM Date: 11/05/20Loc: ERRoom/Bed:Attending Dr: Ordering Provider/Ordering MD: Michael Lawson MD, [facility] Date of Service: 11/05/20 Procedure(s): CT abdomen pelvis w con* [id number] Accession Number(s): [id number] Report Number: [id number] PROCEDURE INFORMATION: Exam: CT Abdomen And Pelvis With Contrast Exam date and time: 11/05/2020 3:00 PM Age: 35 years old Clinical indication: Abdominal pain; Other: Rlq; Prior surgery; Surgery date: 6+ months; Surgery type: Gb; Additional info: Rlq pain TECHNIQUE: Imaging protocol: Computed tomography of the abdomen and pelvis with contrast. Radiation optimization: All CT scans at this facility use at least one of these dose optimization techniques: automated exposure control; mA and/or kV adjustment per patient size (includes targeted exams where dose is matched to clinical indication); or iterative reconstruction. Contrast material: OMNIPAQUE 300; Contrast volume: 95 ml; Contrast route: INTRAVENOUS (IV); COMPARISON: CT abdomen pelvis w con* [id number] 07/01/2020 10:06 PM RADIATION DOSE METRICS: Total DLP (mGy-cm): 887.64 FINDINGS: Mediastinal space: There is mucosal thickening of the distal esophagus. Liver: Regional decreased attenuation of the left hepatic lobe at the ligamentum teres suggestive of focal fatty infiltration. Gallbladder and bile ducts: The gallbladder has been removed. Pancreas: Normal. No ductal dilation. Spleen: Normal. No splenomegaly. Adrenal glands: Normal. No mass. Kidneys and ureters: Normal. No hydronephrosis. Stomach and bowel: The stomach is distended and filled with debris. There is mucosal thickening of the distal stomach. Appendix: A normal appendix is identified. Intraperitoneal space: Unremarkable. No free air. No significant fluid collection. Vasculature: Unremarkable. No abdominal aortic aneurysm. Lymph nodes: Unremarkable. No enlarged lymph nodes. Urinary bladder: Bladder wall enhances somewhat prominently. Reproductive: Unremarkable as visualized. Bones/joints: Unremarkable. No acute fracture. Soft tissues: There is mild edema in the subcutaneous soft tissues surrounding the lower abdomen and pelvis. CT/CT abdomen pelvis w con* [id number] IMPRESSION: 1. There is mucosal thickening of the distal esophagus and distal stomach. Findings are consistent with a nonspecific esophagitis/gastritis. The stomach is distended and filled with debris. 2. Bladder wall enhances somewhat prominently raising concern for cystitis. Please correlate clinically. Radiation Dose CTDIVOL = (mGy): DLP = 887.64 (mGy-cm) Dictated By:Pinky Guerrero MDSigned By:Pinky Guerrero MDSigned Date/Time:11/05/201614DD/ 13 Critical Care Time Critical Care Time: Critical Care Time: Yes Total Critical Care Time: 30 Attestation: This case had a high probability of a clinically significant, sudden, or life threatening deterioration of this patient's condition which required my full and direct attention, intervention and personal management. 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
[2020-11-05] MEDS: ketorolac 30 mg/mL INJ IVP (14:22)
[2020-11-05 14:56] LABS: Bilirubin Urine Neg (Negative); Blood Urine 2+ (Negative); Glucose Urine UA 4+ (Normal); Ketones Urine Negative (Negative); Leukocyte Esterase Urine 1+ (Negative); Nitrate Urine Negative (Negative); Protein Urine Neg (Negative); Urine Appearance Hazy (CLEAR); Urine Color Colorless (Yellow); Urobilinogen Urine Norm (Negative); pH Urine 5 (5-7)
[2020-11-05 14:57] LABS: Add Urine Culture? Yes; Add Urine Microscopic? YES; Bacteria Urine 2+ /hpf; RBC Urine 0-4 /hpf (0-2); Squamous Epithelial Cell Urine 0-4 /hpf (0-5); WBC Urine 25-40 /hpf (0-5)
[2020-11-05 15:34] LABS: HCG Qualitative Urine. Negative (Negative)
[2020-11-05 15:40] LABS: Basophils # 0.1 10^3/uL (0.0-0.1); Basophils % 0.5 %; Eosinophils # 0.1 10^3/uL (0.0-0.8); Eosinophils % 0.8 %; Hematocrit 43.1 % (37.0-47.0); Lymphocytes # 2.5 10^3/uL (0.8-4.8); Lymphocytes % 22.8 %; Mean Corpuscular HGB Conc 32.5 g/dL (30.0-36.0); Mean Corpuscular Hemoglobin 28.2 pg (28.0-34.0); Mean Corpuscular Volume 86.7 fL (81-99); Mean Platelet Volume 11.6 fL (7.4-10.4); Monocytes # 0.5 10^3/uL (0.2-0.9); Monocytes % 4.7 %; Neutrophils # 7.62 10^3/uL (1.8-7.7); Neutrophils % 70.9 %; Nucleated Red Blood Cells % 0 %; Platelet Count 239 10^3/cmm (130-400); Red Blood Count 4.97 10^6/uL (4.1-5.3); White Blood Count 10.7 10^3/uL (4.0-10.0)
[2020-11-05] MEDS: iohexol 300 mg/mL 100 mL Btl IV (15:42)
[2020-11-05 15:47] LABS: Ketone (Acetest) Serum Negative (Negative)
[2020-11-05 15:53] LABS: Alanine Aminotransferase 32 U/L (0-33); Albumin Level 3.5 g/dL (3.5-5.2); Alkaline Phosphatase 150 IU/L (35-105); Anion Gap 18.6 (5-19); Aspartate Amino Transferase 28 U/L (0-32); Blood Urea Nitrogen 10 mg/dL (6-20); C Reactive Protein 0.3 mg/L (0.0-4.9); Calcium 8.4 mg/dL (8.5-10.5); Carbon Dioxide 25 mmol/L (22-29); Chloride 89 mmol/L (98-107); Glomerular Filtration Rate 51.4 mL/min (90-130); Lipase 43 U/L (13-60); Osmolality Calculated 300 mOsm/kg (285-295); Potassium 4.6 mmol/L (3.5-5.1); Sodium 128 mmol/L (136-145); Total Bilirubin 0.2 mg/dL (0.15-1.2); Total Protein 7.5 g/dL (6.6-8.7)
[2020-11-05 16:05] LABS: Lactate (Lactic Acid level) 6.5 mmol/L (0.5-2.2)
[2020-11-05 16:06] LABS: Glucose 729 mg/dL (65-115)
[2020-11-05] MEDS: piperacillin-tazobactam 3.375 GM in sodium chloride 0.9% (plus) 50 ML IV (16:16)
[2020-11-05] MEDS: sodium chloride 0.9% 1,000 ML 999 ML IV ×2 (16:17→17:26)
[2020-11-05 17:27] LABS: Glucose Point of Care 534 mg/dL (70-110)
--- NOTE | 2020-11-05 18:26 | P.HP_ITS ---
Providers/Chief Complaint Admitting Physician: Jd Díaz Primary Care Provider: SUZANNE Dias Chief Complaint: BAD ABD PAIN History of Present Illness Pleasant 35-year-old lady with DM1, other comorbidities, history of difficult to control diabetes, recently assessed here in ER on 10/30 due to neuropathic lower extremity pain, at that time with noted hyperglycemia, possible UTI for which was prescribed Macrobid. Received insulin while in ER, with improvement in blood glucose. 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 She developed right side and right flank abdominal pain at home. Has been having some hot flashes and chills but no fever. Does report some loose stool with some mucus. Denies blood. Has not vomited. In ER BP 113/81, pulse 82, though initially 97. Respiratory rate 16, temp 98.8, saturation 98% on room air. WBC count 10.7, hemoglobin 14, platelets 239. Sodium 128, chloride 89, bicarb 25, anion gap 18.6. BUN 10, creatinine 1.2. Glucose 729. Lactic acid 6.5. Calcium 8.4. T bili 0.2, AST 28, ALT 32, alk phos 150. CRP 0.3. Total protein 7.5, globulin 4. Lipase 43. Beta hCG negative. Urinalysis with hazy urine, 4+ glucose, negative ketones, 2+ blood, negative nitrate, 1+ leukocyte esterase, 0- 4 RBC, 25-40 WBC, 0.4 squamous epithelial cells. 2+ bacteria. Negative serum ketones. CT abdomen pelvis with mucosal thickening of distal esophagus and distal stomach. Consistent with nonspecific esophagitis/gastritis. Stomach distended and filled with debris. Urinary bladder wall enhances somewhat, prominently raising concern for cystitis. In ER she received Zosyn, normal saline 1L bolus, ketorolac. She denies missing any insulin doses. States that when she gets UTI her sugars become very difficult to control. Denies prior history of DKA. Review of Systems Const: Denies: fever(s), chills, body aches or malaise Eyes: Denies: change in vision or eye redness ENMT: Denies: throat pain, oral sores or ear or mastoid pain Card: Denies: chest pain, edema, pre-syncope or dyspnea on exertion Resp: Denies: dyspnea, productive cough, change in phlegm color or hemoptysis GI: Reports: abdominal pain and diarrhea; Denies: nausea, vomiting, constipation, hematochezia or melena : Reports: flank pain; Denies: urinary frequency or hematuria Musc: Reports: other (Swelling of feet. Neuropathic pain. ); Denies: back pain, joint swelling or joint redness Skin/Breast: Denies: rash, sores or new lesions Neuro: Denies: headache(s), numbness in extremities, weakness in extremities, dizziness, confusion or seizure-like activity Endo: Denies: polyuria or polydipsia Ramiro/Lymph: Denies: easy bleeding or purpura All/Imm: Denies: urticaria, throat swelling or tongue swelling Medications/Allergies Home Medications Medication Instructions Recorded Confirmed Last Taken Type blood sugar diagnostic #360 ea 08/19/20 11/05/20 Unknown Rx insulin glargine 100 unit/mL (3 30 unit SUBCUT BID@0800,1600 #54 ml 08/19/20 11/05/20 11/05/20 Rx mL) subcutaneous pen insulin lispro 100 unit/mL See Rx Instructions .ROUTE 08/19/20 11/05/20 Unknown Rx subcutaneous pen .COMPLEX #18 ml pen needle, diabetic 31 gauge x #450 ea 08/19/20 11/05/20 Unknown Rx 1/4 glucagon HCl 1 mg solution for 1 mg SUBCUT Q20M PRN #3 ea 08/22/20 11/05/20 Unknown Rx injection gabapentin 300 mg PO BID PRN 11/05/20 11/05/20 Unknown History Allergies Allergy/AdvReac Type Severity Reaction Status Date / Time acetaminophen AdvReac Mild ADR-Gastrointestinal Verified 11/05/20 13:52 Upset PFSH Acute PFSH: Medical History Anxiety Arnold-Chiari malformation Chronic headache Diabetic gastroparesis -continue Reglan Diabetic neuropathy associated with type 1 diabetes mellitus DKA (diabetic ketoacidoses) Exposure to severe acute respiratory syndrome coronavirus 2 (SARS-CoV-2) -COVID-19 negative (PCR) HTN (hypertension) Hyperglycemia Lymphadenitis Migraine headache Non-alcoholic fatty liver disease Pancreatitis PID (pelvic inflammatory disease) Pleural effusion 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 Pyelonephritis Recurrent UTI Respiratory failure Sepsis Type 1 diabetes mellitus Uncontrolled type 1 diabetes mellitus Ureterolithiasis Surgical History History of cholecystectomy History of endoscopy History of lung surgery -s/p LLL lobectomy secondary to cavitary pneumonia (2017) Family History Grandfather Diabetes Other Heart disease Hypertension Social History Smoking and tobacco status: current every day smoker cigarettes Packs smoked per day: 0.5 Second hand smoke exposure: Yes Alcohol intake: never Household members: children Housing: House Marital status: Single Current occupational status: unemployed Female Reproductive History: Date of last menstrual period: 07/25/20 Vitals/I&O/Wt Last Vital Signs Temp 98.8 F 11/05/20 13:49 Pulse 82 11/05/20 16:21 Resp 16 11/05/20 16:21 BP 113/81 11/05/20 16:21 Pulse Ox 98 11/05/20 16:21 11/05/20 11/05/20 11/05/20 06:59 14:59 22:59 Intake Total 1000 / 1000 Balance 1000 / 1000 Weight last 48 hrs Weight 62.596 kg Physical Exam Const: COMMON NORMALS: no acute distress and patient oriented x3 HENMT: COMMON NORMALS: oropharynx normal Neck/C-Spine: COMMON NORMALS: no JVD Resp: COMMON NORMALS: normal respiratory effort and clear to auscultation bilaterally AUSCULTATION: clear to auscultation bilaterally Cardio: COMMON NORMALS: no JVD, regular rhythm, S1 normal heart sound present, S2 normal heart sound present and No murmurs present (Cardio) RHYTHM: regular rhythm HEART SOUNDS: S1 normal heart sound present and S2 normal heart sound present GI: COMMON NORMALS: Normal to inspection, nondistended, normoactive bowel sounds present and Soft to palpation PALPATION: Yes Soft to palpation and Yes Tenderness to palpation present (GI) Details: RLQ Back/Pelvis: GENERAL BACK: Yes CVA tenderness CVA tenderness: right Extremity: COMMON NORMALS: no joint enlargement and no pedal edema Neuro: COMMON NORMALS: patient oriented x3 and moves all extremities Skin: COMMON NORMALS: no rashes or lesions noted GENERAL SKIN EXAM: no rashes or lesions noted Data : 11/05/20 15:21 11/05/20 15:21 A&P Assessment and plan (1) Complicated UTI (urinary tract infection): Continue Zosyn. Follow-up urine culture. Pyelonephritis not visible on CT, however, having right side pain, right flank pain. Possibly early pyelonephritis. Complicated urinary tract infection with severe hyperglycemia. No stone, hydronephrosis on CT. IV fluid support Due to abdominal pain for now consistent carb clear liquids. Status: Acute (2) Acute hyperglycemia: Severe hyperglycemia, with difficult to control diabetes at baseline. Glucose 729. Currently down to 573. She is being admitted to the intensive care unit for blood glucose control with insulin drip. Status: Acute (3) Uncontrolled type 1 diabetes mellitus: At home normally takes Lantus 30 units twice daily, and states sliding scale. Forgot to mention about fixed dose premeal insulin, when reminded about it says yes. States that she has been out of town recently and has not followed up with an sand hauler. She intends to follow-up again. During prior follow-up they were intending to seek arrangements for her insulin pump. Status: Acute (4) ERICA (acute kidney injury): Creatinine 1.2. Treat UTI. Treat severe hyperglycemia. Received fluid challenge in ER with 1 L NS. Continue IV rehydration. Status: Acute (5) Diabetic neuropathy: Takes gabapentin as needed. Appears may have gastroparesis as well with distended stomach with debris. Status: Acute Qualifiers: Diabetes mellitus type: type 1 (6) Lactic acidosis: Lactic acid 6.5. Does not otherwise fit sepsis criteria. Treatment of UTI as above. CT abdomen pelvis with contrast, not CT angiogram, but not showing obvious signs of bowel ischemia. Abdomen is soft. Treat severe hyperglycemia. Rehydrate. Recheck lactic acid. Status: Acute (7) Esophagitis: IV famotidine. Status: Acute (8) Alkaline phosphatase elevation: Appears to have chronic elevation of alkaline phosphatase. Currently somewhat lower than previously. Not entirely clear etiology. Check GGT. Fatty infiltration noted in left hepatic lobe on CT. Gallbladder has been removed. Status: Acute Additional A&P Information Pseudohyponatremia: Sodium 128. Treat severe hyperglycemia. Attestations Medical Necessity Statement*: Admission of over 2 midnights is going to needed for assessment management of complicated urinary tract infection with severe hyperglycemia in a lady with underlying DM 1 with difficult to control glucose, acute kidney injury. 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
[2020-11-05] MEDS: insulin regular-human 250 UNIT in sodium chloride 0.9% 250 ML 15.4 UNIT IV (18:42)
[2020-11-05 18:44] LABS: Glucose Point of Care 573 mg/dL (70-110)
[2020-11-05] MEDS: heparin 5,000 unit/mL INJ 1 mL 5000 UNIT SUBCUT (19:27)
[2020-11-05] MEDS: famotidine 20 mg/2 mL INJ IVP (19:28)
[2020-11-05] MEDS: sodium chloride 0.9% 1,000 ML 75 ML IV (19:28)
[2020-11-05] MEDS: TRAMadol 50 mg Tablet PO (19:39)
[2020-11-05] MEDS: lidocaine 2% viscous 15 ML, aluminum-mag hydrox-simethicon 30 ML, sucralfate oral liq 1 GM PO (19:40)
[2020-11-05 19:57] LABS: Gamma Glutamyl Transferase 46 U/L (5-36)
[2020-11-05 20:43] LABS: Lactate (Lactic Acid level) 4.7 mmol/L (0.5-2.2)
[2020-11-05 22:09] LABS: Glucose Point of Care 213 mg/dL (70-110)
[2020-11-05 22:09] LABS: Glucose Point of Care 478 mg/dL (70-110)
[2020-11-05 22:09] LABS: Glucose Point of Care 394 mg/dL (70-110)
[2020-11-05 22:41] LABS: Anion Gap 14.2 (5-19); Blood Urea Nitrogen 8 mg/dL (6-20); Calcium 7.6 mg/dL (8.5-10.5); Carbon Dioxide 22 mmol/L (22-29); Chloride 102 mmol/L (98-107); Glomerular Filtration Rate 82.1 mL/min (90-130); Glucose 178 mg/dL (65-115); Osmolality Calculated 283 mOsm/kg (285-295); Potassium 3.2 mmol/L (3.5-5.1); Sodium 135 mmol/L (136-145)
[2020-11-05] MEDS: D5-NS 0.45% + KCL 20 mEq 20 MEQ/1,000 ML BAG 150 MEQ IV (23:16)
[2020-11-06] VITALS (48 sets, daily range): BP systolic 85–122; BP diastolic 52–89; PULSE 72–88; RESP 2–33; TEMP 36.2–36.9; O2SAT 95–100
[2020-11-06] MEDS: piperacillin-tazobactam 3.375 GM in sodium chloride 0.9% (plus) 50 ML IV ×3 (00:14→16:40)
[2020-11-06 01:18] LABS: Glucose Point of Care 144 mg/dL (70-110)
[2020-11-06 01:18] LABS: Glucose Point of Care 112 mg/dL (70-110)
[2020-11-06 01:18] LABS: Glucose Point of Care 114 mg/dL (70-110)
[2020-11-06] MEDS: heparin 5,000 unit/mL INJ 1 mL 5000 UNIT SUBCUT ×3 (02:44→18:08)
[2020-11-06 02:51] LABS: Glucose Point of Care 192 mg/dL (70-110)
[2020-11-06 02:51] LABS: Glucose Point of Care 223 mg/dL (70-110)
[2020-11-06 05:05] LABS: Basophils % 0.4 %; Eosinophils # 0.1 10^3/uL (0.0-0.8); Eosinophils % 1.6 %; Hematocrit 35.9 % (37.0-47.0); Hemoglobin 11.6 g/dL (11.5-15.3); Lymphocytes # 3.8 10^3/uL (0.8-4.8); Lymphocytes % 43.1 %; Mean Corpuscular HGB Conc 32.3 g/dL (30.0-36.0); Mean Corpuscular Volume 89.8 fL (81-99); Mean Platelet Volume 12.3 fL (7.4-10.4); Monocytes # 0.5 10^3/uL (0.2-0.9); Monocytes % 5.4 %; Neutrophils # 4.37 10^3/uL (1.8-7.7); Neutrophils % 49.2 %; Nucleated Red Blood Cells % 0 %; Platelet Count 202 10^3/cmm (130-400); Red Cell Distribution Width 12.5 % (12.1-15.1); White Blood Count 8.9 10^3/uL (4.0-10.0)
[2020-11-06] MEDS: D5-NS 0.45% + KCL 20 mEq 20 MEQ/1,000 ML BAG 150 MEQ IV ×3 (05:56→19:26)
[2020-11-06] MEDS: famotidine 20 mg/2 mL INJ IVP ×2 (06:00→18:08)
[2020-11-06 06:06] LABS: Glucose Point of Care 152 mg/dL (70-110)
[2020-11-06 06:06] LABS: Glucose Point of Care 221 mg/dL (70-110)
[2020-11-06 06:06] LABS: Glucose Point of Care 188 mg/dL (70-110)
[2020-11-06 06:10] LABS: Alanine Aminotransferase 18 U/L (0-33); Albumin Level 2.5 g/dL (3.5-5.2); Alkaline Phosphatase 93 IU/L (35-105); Aspartate Amino Transferase 18 U/L (0-32); Blood Urea Nitrogen 8 mg/dL (6-20); Calcium 7.4 mg/dL (8.5-10.5); Carbon Dioxide 23 mmol/L (22-29); Chloride 105 mmol/L (98-107); Globulin 2.4 g/dL (1.3-4.6); Glomerular Filtration Rate 82.1 mL/min (90-130); Glucose 166 mg/dL (65-115); Osmolality Calculated 282 mOsm/kg (285-295); Sodium 135 mmol/L (136-145); Total Bilirubin 0.2 mg/dL (0.15-1.2); Total Protein 4.9 g/dL (6.6-8.7)
[2020-11-06 06:12] LABS: Anion Gap 10.3 (5-19); Potassium 3.3 mmol/L (3.5-5.1)
--- NOTE | 2020-11-06 06:20 | PC.NURSE ---
Physician Notified Notified MD of AM BMP results. Gap 10.3, potassium 3.3. Verbal orders received to continue with insulin gtt. Verbal orders received for potassium 40meq PO X1 and mag oxide 400mg po X 1.
[2020-11-06] MEDS: magnesium oxide 400 mg tablet PO (06:33)
[2020-11-06] MEDS: potassium chloride ER 20 mEq Tablet 40 MEQ PO (06:34)
[2020-11-06] MEDS: insulin glargine 100 units/1 mL 30 UNIT SUBCUT ×2 (08:31→21:17)
[2020-11-06 10:29] LABS: Glucose Point of Care 128 mg/dL (70-110)
[2020-11-06 10:29] LABS: Glucose Point of Care 147 mg/dL (70-110)
[2020-11-06 10:29] LABS: Glucose Point of Care 175 mg/dL (70-110)
[2020-11-06 10:29] LABS: Glucose Point of Care 159 mg/dL (70-110)
--- NOTE | 2020-11-06 10:35 | PM.PN ---
Subjective Subjective: Interval history: Today she is doing better. Abdomen is not as painful. Still somewhat tender on the right side. Diarrhea has since so far resolved. Denies nausea or vomiting. Reports appetite is back, could eat. No trouble breathing. No chest pain. Vitals/I&O/Wt Last Vital Signs Temp 98.4 F 11/06/20 01:06 Pulse 73 11/06/20 06:00 Resp 14 11/06/20 04:00 BP 86/55 11/06/20 04:00 Pulse Ox 97 11/06/20 04:00 11/05/20 11/06/20 11/06/20 22:59 06:59 14:59 Intake Total 2102.353 / 2102.353 2320.783 / 4423.136 8.525 / 8.525 Output Total 500 / 500 Balance 1602.353 / 6355.128 7711.783 / 3923.136 8.525 / 8.525 Weight last 48 hrs Weight 61.643 kg Weight 62.596 kg Physical Exam Const: COMMON NORMALS: no acute distress and patient oriented x3 HENMT: COMMON NORMALS: oropharynx normal Neck/C-Spine: COMMON NORMALS: no JVD Resp: COMMON NORMALS: normal respiratory effort and clear to auscultation bilaterally AUSCULTATION: clear to auscultation bilaterally Cardio: COMMON NORMALS: no JVD, regular rhythm, S1 normal heart sound present, S2 normal heart sound present and No murmurs present (Cardio) RHYTHM: regular rhythm HEART SOUNDS: S1 normal heart sound present and S2 normal heart sound present GI: COMMON NORMALS: Normal to inspection, nondistended, normoactive bowel sounds present and Soft to palpation PALPATION: Yes Soft to palpation and Yes Tenderness to palpation present (GI) Details: RLQ : BLADDER/KIDNEY EXAM: Yes CVA tenderness Back/Pelvis: GENERAL BACK: Yes CVA tenderness CVA tenderness: right Extremity: COMMON NORMALS: no joint enlargement and no pedal edema Neuro: COMMON NORMALS: patient oriented x3 and moves all extremities Skin: COMMON NORMALS: no rashes or lesions noted GENERAL SKIN EXAM: no rashes or lesions noted Data : 11/06/20 03:39 11/06/20 05:44 A&P Assessment and plan (1) Complicated UTI (urinary tract infection): Overnight hypotensive, BP in the 80s systolic. Currently somewhat better in the 90s. Subjectively she is doing better today. At this time still no signs of sepsis. Continues on gentle IV hydration. Continue Zosyn. Follow-up urine culture. Pyelonephritis not visible on CT, however, having right side pain, right flank pain. Possibly early pyelonephritis. Complicated urinary tract infection with severe hyperglycemia. No stone, hydronephrosis on CT. IV fluid support. Trial of diet. Due to abdominal pain for now consistent carb clear liquids. Status: Acute (2) Acute hyperglycemia: Improved. Resume subcutaneous insulin with oral up with the drip, then discontinue drip. Abdomen all pain is better, she is hungry. Advance diet. Received hypokalemia replacement. Status: Acute (3) Uncontrolled type 1 diabetes mellitus: At home normally takes Lantus 30 units twice daily, and states sliding scale. Forgot to mention about fixed dose premeal insulin, when reminded about it says yes. States that she has been out of town recently and has not followed up with an director of home health services. She intends to follow-up again. During prior follow-up they were intending to seek arrangements for her insulin pump. Resume follow-up with endocrinology. Status: Acute (4) ERICA (acute kidney injury): Resolved. Status: Acute (5) Diabetic neuropathy: Takes gabapentin as needed. Hold for now due to soft blood pressures. Appears may have gastroparesis as well with distended stomach with debris. Discussed with her possible gastroparesis. She does states sometimes gets symptoms of slow transit. She will discuss with her primary provider once she is better regarding referral for gastric emptying study. Status: Acute Qualifiers: Diabetes mellitus type: type 1 (6) Lactic acidosis: Improved. Currently anion gap closed. Acidosis resolved. Does not otherwise fit sepsis criteria. Treatment of UTI as above. CT abdomen pelvis with contrast, not CT angiogram, but not showing obvious signs of bowel ischemia. Abdomen is soft. Treat hyperglycemia. Rehydrate. Status: Acute (7) Esophagitis: IV famotidine. Discussed with her results of CT. She does report having heartburn. At some point consideration may be given to assessment by EGD. Status: Acute (8) Alkaline phosphatase elevation: Resolved, possibly related to dehydration, perhaps minimal cholestasis secondary to infection, severe hyperglycemia. Follow-up in outpatient office. Fatty infiltration noted in left hepatic lobe on CT. Gallbladder has been removed. Status: Acute Additional A&P Information Pseudohyponatremia: Resolved Attestations Medical Necessity Statement*: Continue admission for assessment management of severe hyperglycemia, wean off insulin drip, treatment of complicated UTI. Coding Level of Care Code Acute Superintendent Maintenance [employer] for Chg Fwd Diagnoses Complicated UTI (urinary tract infection) N39.0 Acute hyperglycemia R73.9 Uncontrolled type 1 diabetes mellitus E10.65 ERICA (acute kidney injury) N17.9 Diabetic neuropathy E11.40 Diabetes mellitus type: type 1 Lactic acidosis E87.2 Esophagitis K20.90 Alkaline phosphatase elevation R74.8
[2020-11-06 11:46] LABS: Glucose Point of Care 292 mg/dL (70-110)
[2020-11-06 17:32] LABS: Glucose Point of Care 263 mg/dL (70-110)
--- NOTE | 2020-11-06 18:36 | PC.NURSE ---
Shift summary: Pt rested in bed most of the day, up occasionally to BSC. Pt stated her abdomen still hurt but much improved. No Bowel movements this shift. No pain medication needed this shift. She was started back on Lantus and her Regular insulin regimen. Insulin gtt stopped at 1030. Blood sugars 292 and 263 with meals, requiring 8 units plus her set rate of 10 units. Lenka' sat in room with her most of the day, he as attentive. Pt remains of D5/0.45NS with 20 KCL at 150 ml/hr ad Zosyn.
[2020-11-06 21:18] LABS: Glucose Point of Care 210 mg/dL (70-110)
[2020-11-06] MEDS: TRAMadol 50 mg Tablet PO (21:22)
[2020-11-06] MEDS: lactated ringers 500 ML 999 ML IV (21:48)
[2020-11-07] VITALS (28 sets, daily range): BP systolic 93–121; BP diastolic 58–84; PULSE 76–91; RESP 0–26; TEMP 36.9–37; O2SAT 96–100
[2020-11-07] MEDS: piperacillin-tazobactam 3.375 GM in sodium chloride 0.9% (plus) 50 ML IV ×2 (00:47→07:49)
[2020-11-07] MEDS: D5-NS 0.45% + KCL 20 mEq 20 MEQ/1,000 ML BAG 150 MEQ IV (02:53)
[2020-11-07] MEDS: heparin 5,000 unit/mL INJ 1 mL 5000 UNIT SUBCUT (02:53)
[2020-11-07 03:53] LABS: Basophils # 0.1 10^3/uL (0.0-0.1); Basophils % 0.7 %; Eosinophils # 0.2 10^3/uL (0.0-0.8); Eosinophils % 2.6 %; Hematocrit 36.9 % (37.0-47.0); Hemoglobin 11.9 g/dL (11.5-15.3); Lymphocytes # 3.5 10^3/uL (0.8-4.8); Mean Corpuscular HGB Conc 32.2 g/dL (30.0-36.0); Mean Corpuscular Hemoglobin 28.5 pg (28.0-34.0); Mean Corpuscular Volume 88.3 fL (81-99); Mean Platelet Volume 11.8 fL (7.4-10.4); Monocytes # 0.5 10^3/uL (0.2-0.9); Monocytes % 6.2 %; Neutrophils # 3.37 10^3/uL (1.8-7.7); Neutrophils % 44.1 %; Nucleated Red Blood Cells % 0 %; Platelet Count 213 10^3/cmm (130-400); Red Blood Count 4.18 10^6/uL (4.1-5.3); Red Cell Distribution Width 13.2 % (12.1-15.1); White Blood Count 7.6 10^3/uL (4.0-10.0)
[2020-11-07 04:22] LABS: Alanine Aminotransferase 18 U/L (0-33); Albumin Level 2.1 g/dL (3.5-5.2); Alkaline Phosphatase 83 IU/L (35-105); Anion Gap 8.4 (5-19); Aspartate Amino Transferase 21 U/L (0-32); Blood Urea Nitrogen 7 mg/dL (6-20); Calcium 7.3 mg/dL (8.5-10.5); Carbon Dioxide 24 mmol/L (22-29); Chloride 108 mmol/L (98-107); Globulin 2.9 g/dL (1.3-4.6); Glomerular Filtration Rate 82.1 mL/min (90-130); Glucose 189 mg/dL (65-115); Osmolality Calculated 285 mOsm/kg (285-295); Potassium 4.4 mmol/L (3.5-5.1); Sodium 136 mmol/L (136-145); Total Bilirubin 0.2 mg/dL (0.15-1.2)
[2020-11-07 04:42] LABS: Cortisol Random 0.94 ug/dL (2.47-19.5)
--- NOTE | 2020-11-07 05:26 | PC.NURSE ---
Shift Summary Patient has been resting most of the night, alert and oriented, doing okay on blood sugars, having less pain, only complained of back pain one time. Patient has IV fluids going that has dextrose in it so blood sugars are a little higher than normal. patient should be able to transfer out of the ICU today and just needs ivf and antibiotics to help flush out her infection. she has been appropriate and cooperative and has had good urine output.
[2020-11-07 07:33] LABS: Glucose Point of Care 173 mg/dL (70-110)
[2020-11-07] MEDS: famotidine 20 mg/2 mL INJ IVP (07:48)
[2020-11-07] MEDS: insulin glargine 100 units/1 mL 30 UNIT SUBCUT (10:16)
--- NOTE | 2020-11-07 10:16 | PC.CHAP ---
Pastoral Care Encounter/Spiritual Assessment Type of Contact [] Declined abstract manager visit [] Patient/Family/Request visit [] Outpatient visit [] Follow-up visit [] Physician referral [] Code/Alert [] Routine visit [] Staff referral [] Actively dying [] Patient sleeping [] Family support [] [] Out of room [] Palliative care [] [] Receiving care in room [] Pre-surgical visit [] Trauma [] Long length of stay [] ICU visit [] Other: Relational/Emotional Strength [] Patient feels connected with others/family/visitors/staff [] Distress [] Loneliness/isolation [] Abandonment Spirituality of Patient [] Person of [place] [] Attends Islam of their [place] [] Believes in Prayer [] Reads Bible or Judaism materials [] There are Spiritual issues to be addressed Hand Braille Transcriber Interventions [x] Prayer [] Active listening [] Non-anxious presence [] Spiritual/emotional support [] Crisis/trauma care [] Spiritual counseling [] Bereavement support [] Provided bereavement packet [] Provided Bible/devotional materials [] Provided toy/stuffed animal, coloring book to patient or family member [] Provided Communion [] Anointing/[place] [] Salvation [] Completed spiritual assessment [] Other: Impact on Illness or Injury [] Angry [] Fearful [] Anxious [] Often cries [] Exhaustion [] Unable to work [] Unable to attend pentecostalism [] Unable to walk/stand [] Unable to read [] Unable to drive [] Unable to eat/drink [] Unable to sleep [] Unable to be with family [] Patient intubated [] Other: Summary prayer was all i could do Time spent with patient 5min
[2020-11-07] MEDS: cosyntropin 0.25 mg SDV IVP (10:17)
--- NOTE | 2020-11-07 10:24 | PC.NURSE ---
called lab to let then know the cortrosyn was given at 10:20
[2020-11-07 10:25] LABS: Cosyntropin Baseline 7.23 mcg/dL
[2020-11-07 10:54] LABS: Glucose Point of Care 124 mg/dL (70-110)
--- NOTE | 2020-11-07 11:41 | PC.RESP ---
Smoking Cessation information sent to patient.
[2020-11-07 11:47] LABS: Cosyntropin 30 Minute 20.89 mcg/dL
[2020-11-07 11:54] LABS: Thyroid Stimulating Hormone 3.03 uIU/mL (0.27-4.20)
--- NOTE | 2020-11-07 12:32 | PC.NURSE ---
Insulin changed for noon dose to 5 u
[2020-11-07 13:01] LABS: Cosyntropin 1 Hour 24.87 mcg/dL
[2020-11-07 15:21] LABS: Glucose Point of Care 179 mg/dL (70-110)
--- NOTE | 2020-11-07 15:23 | P.DS_ITS ---
Discharge Providers Date of Admission: 11/05/20 16:47 Date of Discharge: November 07, 2020 Attending Provider at Admission: Jd Díaz Attending Provider at Discharge: Ruy Edgar MD Primary Care Provider: SUZANNE Dias Diagnoses at Discharge Discharge Diagnosis (1) Complicated UTI (urinary tract infection): Status: Acute (2) Acute hyperglycemia: Status: Inactive (3) Uncontrolled type 1 diabetes mellitus: Status: Acute (4) ERICA (acute kidney injury): Status: Acute (5) Diabetic neuropathy: Status: Inactive Qualifiers: Diabetes mellitus type: type 1 (6) Lactic acidosis: Status: Acute (7) Esophagitis: Status: Acute (8) Alkaline phosphatase elevation: Status: Acute Reason for Visit Reason for Visit: BAD ABD PAIN Hospital Course Hospital Course Pleasant 35-year-old lady with DM1, other comorbidities, history of difficult to control diabetes, recently assessed here in ER on 10/30 due to neuropathic lower extremity pain, at that time with noted hyperglycemia, possible UTI for which was prescribed Macrobid. Received insulin while in ER, with improvement in blood glucose. 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 She developed right side and right flank abdominal pain at home. Has been having some hot flashes and chills but no fever. Does report some loose stool with some mucus. Denies blood. Has not vomited. In ER BP 113/81, pulse 82, though initially 97. Respiratory rate 16, temp 98.8, saturation 98% on room air. WBC count 10.7, hemoglobin 14, platelets 239. Sodium 128, chloride 89, bicarb 25, anion gap 18.6. BUN 10, creatinine 1.2. Glucose 729. Lactic acid 6.5. Calcium 8.4. T bili 0.2, AST 28, ALT 32, alk phos 150. CRP 0.3. Total protein 7.5, globulin 4. Lipase 43. Beta hCG negative. Urinalysis with hazy urine, 4+ glucose, negative ketones, 2+ blood, negative nitrate, 1+ leukocyte esterase, 0- 4 RBC, 25-40 WBC, 0.4 squamous epithelial cells. 2+ bacteria. Negative serum ketones. Patient was admitted to the ICU for. Of hypoglycemia and overall normal DKA. She denied any recent upper insulin doses. On examination patient was having right flank pain for which CT abdomen was done which was consistent with esophagitis and early cystitis. On review of urine cultures from the past it was seen that patient always grow strep agalactiae. There is mild concern for early pyelonephritis versus cystitis for which she was started on broad-spectrum antibiotics. She responded well to the treatment and hyperglycemia resolved. During hospitalization she was found to be mildly hypotensive for which cortisol levels were checked and were inappropriately low. Adrenal insufficiency was considered and was ruled out with a negative cosyntropin stimulation test. Patient has been discharged in stable condition with advice to take Augmentin Levaquin for next 5 days to finish a course of antibiotics for UTI. She supposed to continue her insulins as before. She is on Lantus 30 units twice daily, Humalog 10 units and additional sliding scale premeals. She is to continue following up with her outpatient customer service professional and is advised to follow-up with a physician within next 1 week for possible insulin pump. Physical Exam Const: COMMON NORMALS: no acute distress and patient oriented x3 HENMT: COMMON NORMALS: oropharynx normal Neck/C-Spine: COMMON NORMALS: no JVD Resp: COMMON NORMALS: normal respiratory effort and clear to auscultation bilaterally AUSCULTATION: clear to auscultation bilaterally Cardio: COMMON NORMALS: no JVD, regular rhythm, S1 normal heart sound present, S2 normal heart sound present and No murmurs present (Cardio) RHYTHM: regular rhythm HEART SOUNDS: S1 normal heart sound present and S2 normal heart sound present GI: COMMON NORMALS: Normal to inspection, nondistended, normoactive bowel sounds present and Soft to palpation PALPATION: Yes Soft to palpation and Yes Tenderness to palpation present (GI) : BLADDER/KIDNEY EXAM: Yes CVA tenderness Back/Pelvis: GENERAL BACK: Yes CVA tenderness CVA tenderness: right Extremity: COMMON NORMALS: no joint enlargement and no pedal edema Neuro: COMMON NORMALS: patient oriented x3 and moves all extremities Skin: COMMON NORMALS: no rashes or lesions noted GENERAL SKIN EXAM: no rashes or lesions noted Discharge Data Data Completed and Pending: Completed Studies During Hospitalization Category Date Time Status CT abdomen pelvis w con* [id number] Urge nt Cat Scan 11/05/20 13:58 Completed Pending at discharge Category Date Time Status Adrenocorticotrop ic Hormone Routine Lab 11/07/20 09:30 Received Chlamydia / Gonor fatuma Panel Routine Lab 11/07/20 12:15 Received Clostridioides Di fficile PCR Routin e Lab 11/05/20 18:40 Uncollected Complete Blood Co unt w/Auto AM LABS Lab 11/08/20 04:00 Ordered Comprehensive Met abolic Panel AM LA BS Lab 11/08/20 04:00 Ordered Enteric Bacterial Panel by PCR Rout ine Lab 11/05/20 18:40 Uncollected Plasma Renin Acti vity LC/MS/MS Rout ine Lab 11/07/20 09:30 Received Urine Culture Sta t Lab 11/05/20 14:25 Results Labs from last 24 hours 11/07/20 11/07/20 11/07/20 15:18 10:50 09:30 WBC RBC Hgb Hct MCV MCH MCHC RDW Plt Count MPV Neut % (Auto) Lymph % (Auto) Power % (Auto) Eos % (Auto) Baso % (Auto) Neut # (Auto) Lymph # (Auto) Power # (Auto) Eos # (Auto) Baso # (Auto) Nucleated RBC % (a uto) Nucleated RBCs # Sodium Potassium Chloride Carbon Dioxide Anion Gap BUN Creatinine GFR Calculation Glucose POC Glucose 179 H 124 H Calculated Osmolal ity Calcium Total Bilirubin AST ALT Alkaline Phosphata se Total Protein Albumin Globulin Renin Activity TSH Random Cortisol Cortisol Response ACTH Pending 11/07/20 11/07/20 11/07/20 09:30 09:30 07:29 WBC RBC Hgb Hct MCV MCH MCHC RDW Plt Count MPV Neut % (Auto) Lymph % (Auto) Power % (Auto) Eos % (Auto) Baso % (Auto) Neut # (Auto) Lymph # (Auto) Power # (Auto) Eos # (Auto) Baso # (Auto) Nucleated RBC % (a uto) Nucleated RBCs # Sodium Potassium Chloride Carbon Dioxide Anion Gap BUN Creatinine GFR Calculation Glucose POC Glucose 173 H Calculated Osmolal ity Calcium Total Bilirubin AST ALT Alkaline Phosphata se Total Protein Albumin Globulin Renin Activity Pending TSH Random Cortisol Cortisol Response ACTH 11/07/20 11/07/20 11/07/20 02:52 02:52 02:52 WBC RBC Hgb Hct MCV MCH MCHC RDW Plt Count MPV Neut % (Auto) Lymph % (Auto) Power % (Auto) Eos % (Auto) Baso % (Auto) Neut # (Auto) Lymph # (Auto) Power # (Auto) Eos # (Auto) Baso # (Auto) Nucleated RBC % (a uto) Nucleated RBCs # Sodium 136 Potassium 4.4 Chloride 108 H Carbon Dioxide 24 Anion Gap 8.4 BUN 7 Creatinine 0.8 GFR Calculation 82.1 L Glucose 189 H POC Glucose Calculated Osmolal ity 285 Calcium 7.3 L Total Bilirubin 0.2 AST 21 ALT 18 Alkaline Phosphata se 83 Total Protein 5.0 L Albumin 2.1 L Globulin 2.9 Renin Activity TSH 3.03 Random Cortisol 0.94 L Cortisol Response ACTH 11/07/20 11/06/20 11/06/20 02:52 21:16 17:29 WBC 7.6 RBC 4.18 Hgb 11.9 Hct 36.9 L MCV 88.3 MCH 28.5 MCHC 32.2 RDW 13.2 Plt Count 213 MPV 11.8 H Neut % (Auto) 44.1 Lymph % (Auto) 46.0 Power % (Auto) 6.2 Eos % (Auto) 2.6 Baso % (Auto) 0.7 Neut # (Auto) 3.37 Lymph # (Auto) 3.5 Power # (Auto) 0.5 Eos # (Auto) 0.2 Baso # (Auto) 0.1 Nucleated RBC % (a uto) 0 Nucleated RBCs # 0.0 Sodium Potassium Chloride Carbon Dioxide Anion Gap BUN Creatinine GFR Calculation Glucose POC Glucose 210 H 263 H Calculated Osmolal ity Calcium Total Bilirubin AST ALT Alkaline Phosphata se Total Protein Albumin Globulin Renin Activity TSH Random Cortisol Cortisol Response ACTH Addt'l Data from Hospital Stay: Laboratory Results WBC 7.6 10^3/uL (4.0- 10.0) 11/07/20 02:52 RBC 4.18 10^6/uL (4.1 -5.3) 11/07/20 02:52 Hgb 11.9 g/dL (11.5-1 5.3) 11/07/20 02:52 Hct 36.9 % (37.0-47.0 ) L 11/07/20 02:52 MCV 88.3 fL (81-99) 11/07/20 02:52 MCH 28.5 pg (28.0-34. 0) 11/07/20 02:52 MCHC 32.2 g/dL (30.0-3 6.0) 11/07/20 02:52 RDW 13.2 % (12.1-15.1 ) 11/07/20 02:52 Plt Count 213 10^3/cmm (130 -400) 11/07/20 02:52 MPV 11.8 fL (7.4-10.4 ) H 11/07/20 02:52 Neut % (Auto) 44.1 % 11/07/20 02:52 Lymph % (Auto) 46.0 % 11/07/20 02:52 Power % (Auto) 6.2 % 11/07/20 02:52 Eos % (Auto) 2.6 % 11/07/20 02:52 Baso % (Auto) 0.7 % 11/07/20 02:52 Neut # (Auto) 3.37 10^3/uL (1.8 -7.7) 11/07/20 02:52 Lymph # (Auto) 3.5 10^3/uL (0.8- 4.8) 11/07/20 02:52 Power # (Auto) 0.5 10^3/uL (0.2- 0.9) 11/07/20 02:52 Eos # (Auto) 0.2 10^3/uL (0.0- 0.8) 11/07/20 02:52 Baso # (Auto) 0.1 10^3/uL (0.0- 0.1) 11/07/20 02:52 Nucleated RBC % (a uto) 0 % 11/07/20 02:52 Nucleated RBCs # 0.0 /100WBC 11/07/20 02:52 Sodium 136 mmol/L (136-1 45) 11/07/20 02:52 Potassium 4.4 mmol/L (3.5-5 .1) 11/07/20 02:52 Chloride 108 mmol/L (98-10 7) H 11/07/20 02:52 Carbon Dioxide 24 mmol/L (22-29) 11/07/20 02:52 Anion Gap 8.4 (5-19) 11/07/20 02:52 BUN 7 mg/dL (6-20) 11/07/20 02:52 Creatinine 0.8 mg/dL (0.5-0. 9) 11/07/20 02:52 GFR Calculation 82.1 mL/min (90-1 30) L 11/07/20 02:52 Glucose 189 mg/dL (65-115 ) H 11/07/20 02:52 POC Glucose 179 mg/dL (70-110 ) H 11/07/20 15:18 Calculated Osmolal ity 285 mOsm/kg (285- 295) 11/07/20 02:52 Lactate 4.7 mmol/L (0.5-2 .2) H* 11/05/20 20:05 Calcium 7.3 mg/dL (8.5-10 .5) L 11/07/20 02:52 Total Bilirubin 0.2 mg/dL (0.15-1 .2) 11/07/20 02:52 GGT 46 U/L (5-36) H 11/05/20 15:28 AST 21 U/L (0-32) 11/07/20 02:52 ALT 18 U/L (0-33) 11/07/20 02:52 Alkaline Phosphata se 83 IU/L (35-105) 11/07/20 02:52 C-Reactive Protein 0.3 mg/L (0.0-4.9 ) 11/05/20 15:21 Total Protein 5.0 g/dL (6.6-8.7 ) L 11/07/20 02:52 Albumin 2.1 g/dL (3.5-5.2 ) L 11/07/20 02:52 Globulin 2.9 g/dL (1.3-4.6 ) 11/07/20 02:52 Lipase 43 U/L (13-60) 11/05/20 15: TSH 3.03 uIU/mL (0.27 -4.20) 11/07/20 02:52 HCG, Qual Cancelled 11/05/20 15:21 Random Cortisol 0.94 ug/dL (2.47- 19.5) L 11/07/20 02:52 Cortisol Response 11/07/20 09:30 Urine Color Colorless (Yello w) 11/05/20 14:25 Urine Appearance Hazy (CLEAR) A 11/05/20 14:25 Urine pH 5 (5-7) 11/05/20 14:25 Ur Specific Gravit y 1.010 (1.005-1.0 30) 11/05/20 14:25 Urine Protein Neg (Negative) 11/05/20 14:25 Urine Glucose (UA) 4+ (Normal) H 11/05/20 14:25 Urine Ketones Negative (Negati ve) 11/05/20 14:25 Urine Blood 2+ (Negative) H 11/05/20 14:25 Urine Nitrate Negative (Negati ve) 11/05/20 14:25 Urine Bilirubin Neg (Negative) 11/05/20 14:25 Urine Urobilinogen Norm mg/dL (Negat hung) 11/05/20 14:25 Ur Leukocyte Denise ase 1+ (Negative) H 11/05/20 14:25 Urine RBC 0-4 /hpf (0-2) H 11/05/20 14:25 Urine WBC 25-40 /hpf (0-5) H 11/05/20 14:25 Ur Squamous Epith Cells 0-4 /hpf (0-5) H 11/05/20 14:25 Amorphous Sediment Not Reportable 11/05/20 14:25 Urine Bacteria 2+ /hpf (NONE) H 11/05/20 14:25 Serum Ketones Negative (Negati ve) 11/05/20 15:21 Impressions Abdomen/Pelvis CT 11/05/20 13:58 IMPRESSION: 1. There is mucosal thickening of the distal esophagus and distal stomach. Findings are consistent with a nonspecific esophagitis/gastritis. The stomach is distended and filled with debris. 2. Bladder wall enhances somewhat prominently raising concern for cystitis. Please correlate clinically. Radiation Dose CTDIVOL = (mGy): DLP = 887.64 (mGy-cm) Vitals: Last Vital Signs Temp 98.6 F 11/07/20 03:45 Pulse 85 11/07/20 14:00 Resp 16 11/07/20 13:00 BP 104/72 11/07/20 13:00 Pulse Ox 97 11/07/20 13:00 Discharge Plan Discharge Patient Disposition: Home Condition: Stable Prescriptions: New amoxicillin-pot clavulanate [Augmentin] 500-125 mg tablet 1 tab PO BID Qty: 10 RF: 0 levofloxacin 500 mg tablet 500 mg PO DAILY 5 Days Qty: 5 RF: 0 Continued Lantus Solostar U-100 Insulin 100 unit/mL (3 mL) insulin pen 30 unit SUBCUT BID@0800,1600 Qty: 54 RF: 3 insulin lispro [Humalog KwikPen Insulin] 100 unit/mL insulin pen See Rx Instructions .ROUTE .COMPLEX Qty: 18 RF: 3 (DME) ReliOn Prime Test Strips Strip See Rx Instructions .ROUTE .MEDSUPPLY Qty: 360 RF: 3 (DME) pen needle, diabetic [Easy Comfort Pen Firth] 31 gauge x 1/4 needle See Rx Instructions .ROUTE .MEDSUPPLY Qty: 450 RF: 3 Glucagon (HCl) Emergency Kit 1 mg recon soln 1 mg SUBCUT Q20M PRN (Reason: hypoglycemia) Qty: 3 RF: 3 gabapentin 300 mg capsule 300 mg PO BID PRN (Reason: Pain) RF: 0 Discharge Orders: Discharge Order (Routine); Ordered 11/07/20 Ordered By: Ruy Edgar Referrals: Elizabeth Dougherty FNP [Primary Care Provider] - 7-10 days Tyrell Ortega MD [Physician] - 7-10 days Discharge Diet: Diabetic Discharge Activity: Resume usual activity Patient Instructions: Opioid Safety Discharge Attestations Time Spent in Discharge Care*: greater than 30 min Specific Discharge Activities: educating patient, discussing with pcp/other providers, discussing with case management specialist/social workers/dc planners, documenting/other paperwork and evaluating patient/reviewing data Status at Discharge: Cognitive status at discharge: cognitively intact , Behavioral status at discharge: cooperative and independent in ADL's , Functional status at discharge: independent ambulation Overall status at discharge: patient is back to baseline Quality Metrics Clinical Quality Measures During this hospital stay, did patient experience: None Coding Level of Care Code Acute Chg DC note Diagnoses Complicated UTI (urinary tract infection) N39.0 Acute hyperglycemia R73.9 Uncontrolled type 1 diabetes mellitus E10.65 ERICA (acute kidney injury) N17.9 Diabetic neuropathy E11.40 Diabetes mellitus type: type 1 Lactic acidosis E87.2 Esophagitis K20.90 Alkaline phosphatase elevation R74.8
--- NOTE | 2020-11-07 17:59 | PC.NURSE ---
Pt instruction given. all questions answered, and taken to personal vehicle via wheelchair.
[2020-11-07 18:34] LABS: Glucose Point of Care 204 mg/dL (70-110)
[2020-11-11 06:23] LABS: Adrenocorticotropic Hormone 11 pg/mL (6-50)
[2020-11-11 13:08] LABS: Plasma Renin Activity LC/MS/MS 0.25 ng/mL/h (0.25-5.82)
== END 2020-11-07 17:59 | disposition home or self-care (01) | DRG 638 ==
LOC: ER 13:56 → ICU 17:10
PROVIDERS: Internal Medicine; Admitting Provider Internal Medicine; Emergency Provider Family Medicine; PCP Nurse Practitioner Family; Visit Provider Student in an Organized Health Care Education/Training Program
DX: E10.65 Type 1 diabetes mellitus with hyperglycemia (principal); N17.9 Acute kidney failure, unspecified; E87.2 Acidosis; N10 Acute pyelonephritis; E10.43 Type 1 diabetes mellitus with diabetic autonomic (poly)neuropathy; E10.40 Type 1 diabetes mellitus with diabetic neuropathy, unspecified; K31.84 Gastroparesis; N30.90 Cystitis, unspecified without hematuria; Z87.440 Personal history of urinary (tract) infections; F41.9 Anxiety disorder, unspecified; I10 Essential (primary) hypertension; K76.0 Fatty (change of) liver, not elsewhere classified; Z90.2 Acquired absence of lung [part of]; Z87.442 Personal history of urinary calculi; F17.210 Nicotine dependence, cigarettes, uncomplicated; K20.90 Esophagitis, unspecified without bleeding; R74.8 Abnormal levels of other serum enzymes; I95.9 Hypotension, unspecified; Z79.4 Long term (current) use of insulin; Q07.00 Arnold-Chiari syndrome without spina bifida or hydrocephalus
CPT/HCPCS: 36415; 36416; 74177; 80048; 80053; 81001; 81025; 82009; 82024; 82533; 82962; 82977; 83605; 83690; 84244; 84443; 85025; 86140; 87086; 87491; 87591; 96365; 96367; 96372; 96375; 99285; J0834; J1644; J1815 ×2; J1885; J2543; J3490; J7030; J7050; Q9967

== ENCOUNTER 2020-12-17 16:14 | Emergency (ER) | payer BC, MEDICAID, SELFPAY ==
[2020-12-17 16:26] VITALS: BP 64/45; PULSE 89; RESP 22; TEMP 36.9; O2SAT 99; BMI 23.4
--- NOTE | 2020-12-17 16:29 | XRR_ITS ---
PROCEDURE INFORMATION: Exam: XR Chest Exam date and time: 12/17/2020 4:29 PM Age: 35 years old Clinical indication: Cough and dyspnea; Additional info: Dyspnea/cough TECHNIQUE: Imaging protocol: XR of the chest. Views: 1 view. Total images: 1 COMPARISON: CR XR chest 1V portable [id number] 08/16/2020 4:23 PM FINDINGS: Lungs: No visible active interstitial or alveolar airspace disease. No visible pulmonary contusion or pulmonary laceration. COPD/chronic bronchitis/emphysema. Calcified granuloma of antecedent disease right lower lobe. Chronic volume loss left lung potentially postoperative. Pleural spaces: Unremarkable. No pleural effusion. No pneumothorax. No visible hemothorax. Heart/Mediastinum: Cardiac structures and configuration with microcardia. Bones/joints: Unremarkable. XR/XR chest 1V portable [id number] IMPRESSION: Nonacute.
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
[2020-12-17 16:35] LABS: Glucose Point of Care 412 mg/dL (70-110)
[2020-12-17] MEDS: sodium chloride 0.9% 1,000 ML 999 ML IV ×2 (16:37)
[2020-12-17 16:39] LABS: Basophils # 0.1 10^3/uL (0.0-0.1); Basophils % 0.6 %; Eosinophils # 0.2 10^3/uL (0.0-0.8); Eosinophils % 1.3 %; Hematocrit 43.3 % (37.0-47.0); Hemoglobin 14.5 g/dL (11.5-15.3); Lymphocytes # 6.1 10^3/uL (0.8-4.8); Lymphocytes % 50.8 %; Mean Corpuscular HGB Conc 33.5 g/dL (30.0-36.0); Mean Corpuscular Hemoglobin 28.2 pg (28.0-34.0); Mean Corpuscular Volume 84.2 fL (81-99); Mean Platelet Volume 10.9 fL (7.4-10.4); Monocytes # 0.8 10^3/uL (0.2-0.9); Monocytes % 6.5 %; Neutrophils # 4.85 10^3/uL (1.8-7.7); Neutrophils % 40.6 %; Nucleated Red Blood Cells % 0 %; Platelet Count 277 10^3/cmm (130-400); Red Blood Count 5.14 10^6/uL (4.1-5.3); Red Cell Distribution Width 12.2 % (12.1-15.1); White Blood Count 11.9 10^3/uL (4.0-10.0)
[2020-12-17 16:41] LABS: ABG PCO2 32.8 mmHg (35-45); ABG PH Result 7.47 (7.35-7.45); Alveolar-Arterial Oxygen Gradi 2.9 mmHg (5-10); Arterial Blood Gas Hematocrit 43.1 % (37-47); Blood Gas Allen Test Pos; Blood Gas Operator Identificat GD; Blood Gas Sample Site Radial, left; Blood Gas Sample Type Arterial; Carboxyhemoglobin 1.5 %THgb (0.4-20.1); HGB O2 Sat 96.4 % (95-100); Ionized Calcium Level - ABG 1.2 mmol/L (1.1-1.4); Methemoglobin 0.9 % (0.4-1.5); Oxygen Device ROOM AIR; Oxygen Saturation ABG 98.8; Potassium Level - ABG 4.1 mmol/L (3.5-5.0); Total Hemoglobin 14.1 g/dL (12-16)
[2020-12-17] MEDS: iohexol 300 mg/mL 100 mL Btl IV (16:42)
[2020-12-17 16:57] LABS: Ketone (Acetest) Serum Negative (Negative)
[2020-12-17 17:05] LABS: Alanine Aminotransferase 23 U/L (0-33); Albumin Level 3.5 g/dL (3.5-5.2); Alkaline Phosphatase 113 IU/L (35-105); Aspartate Amino Transferase 23 U/L (0-32); Blood Urea Nitrogen 25 mg/dL (6-20); Carbon Dioxide 27 mmol/L (22-29); Chloride 94 mmol/L (98-107); Creatine Phosphokinase 20 U/L (26-192); Globulin 3.6 g/dL (1.3-4.6); Glomerular Filtration Rate 56.9 mL/min (90-130); Glucose 342 mg/dL (65-115); Lipase 24 U/L (13-60); Osmolality Calculated 294 mOsm/kg (285-295); Sodium 133 mmol/L (136-145); Total Bilirubin 0.2 mg/dL (0.15-1.2); Total Protein 7.1 g/dL (6.6-8.7)
[2020-12-17 17:06] LABS: Slide Review Slide Review Perform
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
[2020-12-17 17:46] LABS: Glucose Urine UA 4+ (Normal); Ketones Urine Negative (Negative); Protein Urine Neg (Negative); Specific Gravity, Urine 1.005 (1.005-1.030); Urine Appearance Clear (CLEAR); Urine Color Straw (Yellow); pH Urine 5 (5-7)
[2020-12-17 17:47] LABS: Add Urine Culture? No; Add Urine Microscopic? YES; Amorphous Sediment Urine 1+ /hpf; Bacteria Urine 1+ /hpf; Bilirubin Urine Neg (Negative); Blood Urine 3+ (Negative); Leukocyte Esterase Urine Negative (Negative); Nitrate Urine Negative (Negative); RBC Urine 0-4 /hpf (0-2); Urobilinogen Urine Norm (Negative)
[2020-12-17 18:11] VITALS: BP 89/76; PULSE 84; RESP 24; O2SAT 99
[2020-12-17 18:19] LABS: Glucose Point of Care 428 mg/dL (70-110)
[2020-12-17] MEDS: insulin regular-human 100 units/1 mL 10 UNIT IVP (18:23)
[2020-12-17 18:34] VITALS: BP 104/64; PULSE 84; RESP 24; O2SAT 99
== END 2020-12-17 18:34 | disposition home or self-care (01) ==
PROVIDERS: Emergency Provider Family Medicine; PCP Nurse Practitioner Family
DX: R07.81 Pleurodynia (principal); Z79.4 Long term (current) use of insulin; E10.40 Type 1 diabetes mellitus with diabetic neuropathy, unspecified; I10 Essential (primary) hypertension; F17.210 Nicotine dependence, cigarettes, uncomplicated
CPT/HCPCS: 36416; 71045; 71260; 74177; 80051; 80053; 81001; 82009; 82330; 82550; 82805; 82962; 83690; 85025; 86850; 86900; 96361; 96374; 99284; J1815; J7030; Q9967

== ENCOUNTER 2021-01-28 11:17 | Observation (INO) | payer BC, MEDICAID, SELFPAY ==
[2021-01-28 11:48] VITALS: BP 105/73; PULSE 83; RESP 16; TEMP 36.6; O2SAT 97; BMI 22.2
--- NOTE | 2021-01-28 11:56 | ECG_ITS ---
[facility] Test Date: 2021-01-28 Pat Name: Donita Aguilar Department: Room: Gender: Female [employer] Dist[employer]: : [id number] Requested By: Shravan Nick Order Number: [id number] Faviola MD: Riccardo Burch M.D. Measurements Intervals [place] Rate: 81 P: 55 [place]: 177 QRS: 64 QRSD: 103 T: 78 QT: 384 QTc: 447 Interpretive Statements SINUS RHYTHM POSSIBLE INFERIOR MYOCARDIAL INFARCTION [30 ms Q WAVE IN II/aVF], PROBABLY OLD Compared to ECG 08/16/2020 12:15:21 Myocardial infarct finding now present T-wave abnormality no longer present Electronically Signed On 01-29-2021 12:18:31 CDT by Riccardo Burch M.D. [id number]
--- NOTE | 2021-01-28 11:56 | XRR_ITS ---
PROCEDURE INFORMATION: Exam: XR Chest Exam date and time: 01/28/2021 11:56 AM Age: 35 years old Clinical indication: Pain; Chest pressure; Additional info: Chest pain TECHNIQUE: Imaging protocol: XR of the chest. Views: 1 view. COMPARISON: CR (CHEST, ) 12/17/2020 4:39 PM FINDINGS: Lungs: Unchanged loss of volume in the left lung with elevation of the left hemidiaphragm and adjacent atelectasis. Pneumonia should be excluded clinically. The right lung is clear. Pleural spaces: Possible trace left pleural effusion. No pneumothorax. Heart/Mediastinum: Stable cardiomediastinal silhouette. Bones/joints: Unremarkable. Organs: Cholecystectomy clips project over the right upper quadrant. XR/XR chest 1V portable [id number] IMPRESSION: Unchanged appearance of the left lung with loss of volume, elevation of the left hemidiaphragm and adjacent atelectasis. Possible trace left pleural effusion.
[2021-01-28 12:52] LABS: Glucose Point of Care > 600 mg/dL (70-110)
--- NOTE | 2021-01-28 12:57 | W.ED.CHESTPA ---
HPI - Chest Pain General: Chief Complaint: Chest Pain Stated Complaint: CHEST PAIN, LOW SUGAR, BACK PAIN Time Seen by Provider: 01/28/21 11:56 History of Present Illness: HPI narrative: 35-year-old female presents emergency room with complaints of elevated blood sugar the last 4 days. Is gotten worse in the last 24 hours. She had nausea and vomiting frequency of urination. She initially told the triage nurse she had low blood sugar. However I talked her states been running high bedside Accu-Chek was just read as high. She complaining of muscle aches all over some chest discomfort she has not had any productive cough. MD complaint: chest pain Pertinent past history: other (Diabetes mellitus) Onset (ago): day(s) (4) Timing of current episode: still present Prior episodes: Yes Onset: during rest Pain location: substernal Pain radiation: back Severity: severe Quality: aching Relieving factors: nothing Exacerbating factors: nothing Associated symptoms: Reports abdominal pain, diaphoresis, dyspnea, nausea, sense of impending doom and vomiting; Deny fever(s), leg edema, palpitations or syncope Treatment prior to arrival: none Review of Systems Const: Reports: diaphoresis; Denies: fever(s) ENMT: Denies: throat pain, ear or mastoid pain, nasal discharge or nasal congestion Card: Denies: palpitations or syncope Resp: Reports: dyspnea GI: Reports: abdominal pain, nausea and vomiting : Denies: flank pain, difficulty voiding, dysuria, urinary frequency or urinary urgency Skin/Breast: Denies: rash or pruritus [facility] ED PFSH: Medical History Anxiety Arnold-Chiari malformation Chronic headache Diabetic gastroparesis -continue Reglan Diabetic neuropathy associated with type 1 diabetes mellitus DKA (diabetic ketoacidoses) Esophagitis Exposure to severe acute respiratory syndrome coronavirus 2 (SARS-CoV-2) -COVID-19 negative (PCR) HTN (hypertension) Hyperglycemia Lymphadenitis Migraine headache Non-alcoholic fatty liver disease Pancreatitis PID (pelvic inflammatory disease) Pleural effusion 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 Pyelonephritis Recurrent UTI Respiratory failure Sepsis Type 1 diabetes mellitus Uncontrolled type 1 diabetes mellitus Ureterolithiasis Surgical History History of cholecystectomy History of endoscopy History of lung surgery -s/p LLL lobectomy secondary to cavitary pneumonia (2017) Family History Grandfather Diabetes Other Heart disease Hypertension Social History Smoking and tobacco status: current every day smoker cigarettes Packs smoked per day: 0.5 Second hand smoke exposure: Yes Alcohol intake: never Household members: children Housing: House Marital status: Single Current occupational status: unemployed Female Reproductive History: Date of last menstrual period: 11/23/20 Physical Exam Const: GENERAL APPEARANCE: cooperative ORIENTATION/CONSCIOUSNESS: Yes awake, Yes oriented to person, Yes oriented to place and Yes oriented to time HENMT: COMMON NORMALS: normocephalic, atraumatic and hearing grossly normal bilaterally HEAD & SCALP: normocephalic and atraumatic Neck/C-Spine: COMMON NORMALS: no JVD Resp: COMMON NORMALS: normal respiratory effort, No retractions, No use of accessory muscles and clear to auscultation bilaterally AUSCULTATION: clear to auscultation bilaterally Cardio: COMMON NORMALS: no JVD, regular rate, regular rhythm and No murmurs present (Cardio) RATE: regular rate RHYTHM: regular rhythm GI: COMMON NORMALS: Soft to palpation and No hepatosplenomegaly present AUSCULTATION: Yes normoactive bowel sounds PALPATION: Yes Soft to palpation, No Tenderness to palpation present (GI), No Guarding due to palpation present (GI) and Yes No hepatosplenomegaly present Extremity: COMMON NORMALS: normal to inspection, capillary refill normal, no clubbing, cyanosis or edema, no calf tenderness and no pedal edema Neuro: SENSORIUM/ORIENTATION: Yes oriented to person, Yes oriented to place and Yes oriented to time Skin: COMMON NORMALS: no rashes or lesions noted GENERAL SKIN EXAM: no rashes or lesions noted Course Vital Signs: Vital signs: Vital Signs Temperature 98 F 01/28/21 11:48 Pulse Rate 83 01/28/21 11:48 Respiratory Rate 16 01/28/21 11:48 Blood Pressure 105/73 01/28/21 11:48 Pulse Oximetry 97 01/28/21 11:48 MDM - Chest Pain MDM Narrative: Medical decision making narrative: Blood sugars markedly elevated we are were able to get peripheral IVs interestingly she is not in true DKA she has no ketones but she has been markedly hyperglycemic will admit to correct her hyperglycemia she is currently on insulin drip discussed Dr. Levi orders are written. Reviewed findings with the patient as well.Reviewed labs and imaging and EKGs in the chart. Lab Data: Labs: Lab Results 01/28/21 01/28/21 01/28/21 Range/Units 12:50 13:17 13:18 WBC (4.0-10.0) 10^3/ uL RBC (4.1-5.3) 10^6/u L Hgb (11.5-15.3) g/dL Hct (37.0-47.0) % MCV (81-99) fL MCH (28.0-34.0) pg MCHC (30.0-36.0) g/dL RDW (12.1-15.1) % Plt Count (130-400) 10^3/c mm MPV (7.4-10.4) fL Neut % (Auto) % Lymph % (Auto) % Mcpherson % (Auto) % Eos % (Auto) % Baso % (Auto) % Neut # (Auto) (1.8-7.7) 10^3/u L Lymph # (Auto) (0.8-4.8) 10^3/u L Mcpherson # (Auto) (0.2-0.9) 10^3/u L Eos # (Auto) (0.0-0.8) 10^3/u L Baso # (Auto) (0.0-0.1) 10^3/u L Nucleated RBC % (a uto) % Nucleated RBCs # /100WBC Specimen Type Arterial Sample Site Brachial, right ABG pH 7.38 (7.35-7.45) ABG pCO2 43.2 (35-45) mmHg ABG pO2 83.7 (80.0-100.0) mmH g ABG HCO3 25.4 (22-26) mmol/L ABG O2 Saturation 97.3 ABG Base Excess 0.0 (-2.0-2.0) mmol/ L Braulio Test Pos A-a O2 Gradient 1.6 L (5-10) mmHg Hematocrit 44.2 (37-47) % Hgb O2 Saturation 95.5 (95-100) % Carboxyhemoglobin 1.3 (0.4-20.1) %THgb Methemoglobin 0.5 (0.4-1.5) % Total Hemoglobin 14.4 (12-16) g/dL Sodium 122.0 L (131-143) mmol/L Potassium 4.5 (3.5-5.0) mmol/L Glucose 1081.0 H (70-115) mg/dL Ionized Calcium 1.2 (1.1-1.4) mmol/L O2 Delivery Device Room air FiO2 21.0 % Director Call Center Sales ID [place] Chloride (98-107) mmol/L Carbon Dioxide (22-29) mmol/L Anion Gap (5-19) BUN (6-20) mg/dL Creatinine (0.5-0.9) mg/dL GFR Calculation (90-130) mL/min POC Glucose > 600 H* (70-110) mg/dL Calculated Osmolal ity (285-295) mOsm/k g Lactic Acid (0.5-2.2) mmol/L Calcium (8.5-10.5) mg/dL Total Bilirubin (0.15-1.2) mg/dL AST (0-32) U/L ALT (0-33) U/L Alkaline Phosphata se (35-105) IU/L Creatine Kinase (26-192) U/L Troponin T Baselin e (0-10) ng/L Total Protein (6.6-8.7) g/dL Albumin (3.5-5.2) g/dL Globulin (1.3-4.6) g/dL Lipase (13-60) U/L Urine Color Colorless (Yellow) Urine Appearance Sl hazy (CLEAR) Urine pH 5 (5-7) Ur Specific Gravit y 1.005 (1.005-1.030) Urine Protein Neg (Negative) Urine Glucose (UA) 4+ H (Normal) Urine Ketones Negative (Negative) Urine Blood 2+ H (Negative) Urine Nitrate Negative (Negative) Urine Bilirubin Neg (Negative) Urine Urobilinogen Norm (Negative) mg/dL Ur Leukocyte Denise ase Negative (Negative) Urine RBC 0-4 H (0-2) /hpf Urine WBC 25-40 H (0-5) /hpf Ur Squamous Epith Cells 0-4 H (0-5) /hpf Amorphous Sediment Not Reportable Urine Bacteria 2+ H (NONE) /hpf Serum Ketones (Negative) 01/28/21 01/28/21 01/28/21 Range/Units 15:00 15:00 15:00 WBC 8.5 (4.0-10.0) 10^3/ uL RBC 4.94 (4.1-5.3) 10^6/u L Hgb 13.9 (11.5-15.3) g/dL Hct 42.0 (37.0-47.0) % MCV 85.0 (81-99) fL MCH 28.1 (28.0-34.0) pg MCHC 33.1 (30.0-36.0) g/dL RDW 12.1 (12.1-15.1) % Plt Count 200 (130-400) 10^3/c mm MPV 11.8 H (7.4-10.4) fL Neut % (Auto) 63.4 % Lymph % (Auto) 29.5 % Mcpherson % (Auto) 5.7 % Eos % (Auto) 0.6 % Baso % (Auto) 0.6 % Neut # (Auto) 5.36 (1.8-7.7) 10^3/u L Lymph # (Auto) 2.5 (0.8-4.8) 10^3/u L Mcpherson # (Auto) 0.5 (0.2-0.9) 10^3/u L Eos # (Auto) 0.1 (0.0-0.8) 10^3/u L Baso # (Auto) 0.1 (0.0-0.1) 10^3/u L Nucleated RBC % (a uto) 0 % Nucleated RBCs # 0.0 /100WBC Specimen Type Sample Site ABG pH (7.35-7.45) ABG pCO2 (35-45) mmHg ABG pO2 (80.0-100.0) mmH g ABG HCO3 (22-26) mmol/L ABG O2 Saturation ABG Base Excess (-2.0-2.0) mmol/ L Braulio Test A-a O2 Gradient (5-10) mmHg Hematocrit (37-47) % Hgb O2 Saturation (95-100) % Carboxyhemoglobin (0.4-20.1) %THgb Methemoglobin (0.4-1.5) % Total Hemoglobin (12-16) g/dL Sodium 123 L (131-143) mmol/L Potassium 4.6 (3.5-5.0) mmol/L Glucose 911 H* (70-115) mg/dL Ionized Calcium (1.1-1.4) mmol/L O2 Delivery Device FiO2 % Director Call Center Sales ID Chloride 85 L (98-107) mmol/L Carbon Dioxide 22 (22-29) mmol/L Anion Gap 20.6 H (5-19) BUN 14 (6-20) mg/dL Creatinine 1.1 H (0.5-0.9) mg/dL GFR Calculation 56.9 L (90-130) mL/min POC Glucose (70-110) mg/dL Calculated Osmolal ity 302 H (285-295) mOsm/k g Lactic Acid (0.5-2.2) mmol/L Calcium 8.7 (8.5-10.5) mg/dL Total Bilirubin 0.2 (0.15-1.2) mg/dL AST 21 (0-32) U/L ALT 23 (0-33) U/L Alkaline Phosphata se 151 H (35-105) IU/L Creatine Kinase 37 (26-192) U/L Troponin T Baselin e 29 H (0-10) ng/L Total Protein 7.0 (6.6-8.7) g/dL Albumin 3.4 L (3.5-5.2) g/dL Globulin 3.6 (1.3-4.6) g/dL Lipase 35 (13-60) U/L Urine Color (Yellow) Urine Appearance (CLEAR) Urine pH (5-7) Ur Specific Gravit y (1.005-1.030) Urine Protein (Negative) Urine Glucose (UA) (Normal) Urine Ketones (Negative) Urine Blood (Negative) Urine Nitrate (Negative) Urine Bilirubin (Negative) Urine Urobilinogen (Negative) mg/dL Ur Leukocyte Denise ase (Negative) Urine RBC (0-2) /hpf Urine WBC (0-5) /hpf Ur Squamous Epith Cells (0-5) /hpf Amorphous Sediment Urine Bacteria (NONE) /hpf Serum Ketones (Negative) 01/28/21 01/28/21 Range/Units 15:00 15:00 WBC (4.0-10.0) 10^3/ uL RBC (4.1-5.3) 10^6/u L Hgb (11.5-15.3) g/dL Hct (37.0-47.0) % MCV (81-99) fL MCH (28.0-34.0) pg MCHC (30.0-36.0) g/dL RDW (12.1-15.1) % Plt Count (130-400) 10^3/c mm MPV (7.4-10.4) fL Neut % (Auto) % Lymph % (Auto) % Mcpherson % (Auto) % Eos % (Auto) % Baso % (Auto) % Neut # (Auto) (1.8-7.7) 10^3/u L Lymph # (Auto) (0.8-4.8) 10^3/u L Mcpherson # (Auto) (0.2-0.9) 10^3/u L Eos # (Auto) (0.0-0.8) 10^3/u L Baso # (Auto) (0.0-0.1) 10^3/u L Nucleated RBC % (a uto) % Nucleated RBCs # /100WBC Specimen Type Sample Site ABG pH (7.35-7.45) ABG pCO2 (35-45) mmHg ABG pO2 (80.0-100.0) mmH g ABG HCO3 (22-26) mmol/L ABG O2 Saturation ABG Base Excess (-2.0-2.0) mmol/ L Braulio Test A-a O2 Gradient (5-10) mmHg Hematocrit (37-47) % Hgb O2 Saturation (95-100) % Carboxyhemoglobin (0.4-20.1) %THgb Methemoglobin (0.4-1.5) % Total Hemoglobin (12-16) g/dL Sodium (131-143) mmol/L Potassium (3.5-5.0) mmol/L Glucose (70-115) mg/dL Ionized Calcium (1.1-1.4) mmol/L O2 Delivery Device FiO2 % Director Call Center Sales ID Chloride (98-107) mmol/L Carbon Dioxide (22-29) mmol/L Anion Gap (5-19) BUN (6-20) mg/dL Creatinine (0.5-0.9) mg/dL GFR Calculation (90-130) mL/min POC Glucose (70-110) mg/dL Calculated Osmolal ity (285-295) mOsm/k g Lactic Acid 4.4 H* (0.5-2.2) mmol/L Calcium (8.5-10.5) mg/dL Total Bilirubin (0.15-1.2) mg/dL AST (0-32) U/L ALT (0-33) U/L Alkaline Phosphata se (35-105) IU/L Creatine Kinase (26-192) U/L Troponin T Baselin e (0-10) ng/L Total Protein (6.6-8.7) g/dL Albumin (3.5-5.2) g/dL Globulin (1.3-4.6) g/dL Lipase (13-60) U/L Urine Color (Yellow) Urine Appearance (CLEAR) Urine pH (5-7) Ur Specific Gravit y (1.005-1.030) Urine Protein (Negative) Urine Glucose (UA) (Normal) Urine Ketones (Negative) Urine Blood (Negative) Urine Nitrate (Negative) Urine Bilirubin (Negative) Urine Urobilinogen (Negative) mg/dL Ur Leukocyte Denise ase (Negative) Urine RBC (0-2) /hpf Urine WBC (0-5) /hpf Ur Squamous Epith Cells (0-5) /hpf Amorphous Sediment Urine Bacteria (NONE) /hpf Serum Ketones Negative (Negative) Discharge Plan Discharge Patient Disposition: Admitted As Inpatient Clinical Impression: Acute hyperglycemia, Uncontrolled type 1 diabetes mellitus, Cystitis Condition: Stable Discharge Diet: Usual diet Discharge Activity: Resume usual activity Coding Level of Care Code ED Ingredient Specialist for Kraigg Fwd Exam Comprehensive
[2021-01-28 13:29] LABS: ABG PCO2 43.2 mmHg (35-45); ABG PH Result 7.38 (7.35-7.45); Alveolar-Arterial Oxygen Gradi 1.6 mmHg (5-10); Arterial Blood Gas Hematocrit 44.2 % (37-47); Blood Gas Allen Test Pos; Blood Gas Sample Type Arterial; Carboxyhemoglobin 1.3 %THgb (0.4-20.1); HCO3 ABG 25.4 mmol/L (22-26); HGB O2 Sat 95.5 % (95-100); Ionized Calcium Level - ABG 1.2 mmol/L (1.1-1.4); Methemoglobin 0.5 % (0.4-1.5); Oxygen Saturation ABG 97.3; PO2 ABG 83.7 mmHg (80.0-100.0); Potassium Level - ABG 4.5 mmol/L (3.5-5.0); Total Hemoglobin 14.4 g/dL (12-16)
[2021-01-28 13:31] LABS: Blood Gas Operator Identificat MONRO; Blood Gas Sample Site Brachial, right; Oxygen Device ROOM AIR
--- NOTE | 2021-01-28 13:56 | ECG_ITS ---
[facility] Test Date: 2021-01-28 Pat Name: Donita Aguilar Department: Room: Gender: Female Central Sterile Technician: : 1985 Requested By: Shravan Nick Order Number: [id number] Faviola MD: Riccardo Burch M.D. Measurements Intervals [place] Rate: 81 P: 67 NM: 173 QRS: 55 QRSD: 104 T: 86 QT: 386 QTc: 451 Interpretive Statements SINUS RHYTHM POSSIBLE LEFT ATRIAL ENLARGEMENT [-0.1mV P WAVE IN V1/V2] POSSIBLE INFERIOR MYOCARDIAL INFARCTION [30 ms Q WAVE IN II/aVF], OF INDETERMINATE AGE Compared to ECG 01/28/2021 12:11:54 No significant changes Electronically Signed On 01-29-2021 12:24:15 CDT by Riccardo Burch M.D. [id number]
[2021-01-28 14:13] LABS: Glucose Urine UA 4+ (Normal); Protein Urine Neg (Negative); Specific Gravity, Urine 1.005 (1.005-1.030); Urine Appearance SL Hazy (CLEAR); Urine Color Colorless (Yellow); pH Urine 5 (5-7)
[2021-01-28 14:14] LABS: Add Urine Microscopic? YES; Bilirubin Urine Neg (Negative); Blood Urine 2+ (Negative); Ketones Urine Negative (Negative); Leukocyte Esterase Urine Negative (Negative); Nitrate Urine Negative (Negative); RBC Urine 0-4 /hpf (0-2); Urobilinogen Urine Norm (Negative); WBC Urine 25-40 /hpf (0-5)
[2021-01-28 14:15] LABS: Add Urine Culture? Yes; Bacteria Urine 2+ /hpf; Squamous Epithelial Cell Urine 0-4 /hpf (0-5)
[2021-01-28 15:29] LABS: Basophils # 0.1 10^3/uL (0.0-0.1); Basophils % 0.6 %; Eosinophils # 0.1 10^3/uL (0.0-0.8); Eosinophils % 0.6 %; Hemoglobin 13.9 g/dL (11.5-15.3); Lymphocytes # 2.5 10^3/uL (0.8-4.8); Lymphocytes % 29.5 %; Mean Corpuscular HGB Conc 33.1 g/dL (30.0-36.0); Mean Corpuscular Hemoglobin 28.1 pg (28.0-34.0); Mean Platelet Volume 11.8 fL (7.4-10.4); Monocytes # 0.5 10^3/uL (0.2-0.9); Monocytes % 5.7 %; Neutrophils # 5.36 10^3/uL (1.8-7.7); Neutrophils % 63.4 %; Nucleated Red Blood Cells % 0 %; Platelet Count 200 10^3/cmm (130-400); Red Blood Count 4.94 10^6/uL (4.1-5.3); Red Cell Distribution Width 12.1 % (12.1-15.1); White Blood Count 8.5 10^3/uL (4.0-10.0)
[2021-01-28] MEDS: sodium chloride 0.9% 1,000 ML 999 ML IV ×3 (15:30→19:55)
[2021-01-28 15:57] LABS: Ketone (Acetest) Serum Negative (Negative); Troponin(5th) Baseline 29 ng/L (0-10)
[2021-01-28 16:00] LABS: Alanine Aminotransferase 23 U/L (0-33); Albumin Level 3.4 g/dL (3.5-5.2); Alkaline Phosphatase 151 IU/L (35-105); Aspartate Amino Transferase 21 U/L (0-32); Blood Urea Nitrogen 14 mg/dL (6-20); Calcium 8.7 mg/dL (8.5-10.5); Carbon Dioxide 22 mmol/L (22-29); Chloride 85 mmol/L (98-107); Creatine Phosphokinase 37 U/L (26-192); Globulin 3.6 g/dL (1.3-4.6); Glomerular Filtration Rate 56.9 mL/min (90-130); Lipase 35 U/L (13-60); Sodium 123 mmol/L (136-145); Total Bilirubin 0.2 mg/dL (0.15-1.2)
[2021-01-28 16:08] LABS: Osmolality Calculated 302 mOsm/kg (285-295)
[2021-01-28] MEDS: insulin regular-human 250 UNIT in sodium chloride 0.9% 250 ML IV (16:16)
[2021-01-28 16:23] LABS: Anion Gap 20.6 (5-19); Potassium 4.6 mmol/L (3.5-5.1)
[2021-01-28 16:24] LABS: Glucose 911 mg/dL (65-115)
[2021-01-28 16:26] LABS: Lactic Sepsis W/Reflex 4.4 mmol/L (0.5-2.2)
--- NOTE | 2021-01-28 16:49 | CTR_ITS ---
PROCEDURE INFORMATION: Exam: CT Abdomen And Pelvis With Contrast Exam date and time: 01/28/2021 4:49 PM Age: 35 years old Clinical indication: Abdominal pain; Generalized; Prior surgery; Surgery date: 6+ months; Surgery type: Gb; Patient HX: C/O abd pain TECHNIQUE: Imaging protocol: Computed tomography of the abdomen and pelvis with contrast. Axial, coronal and sagittal reformatted images were created and reviewed. Radiation optimization: All CT scans at this facility use at least one of these dose optimization techniques: automated exposure control; mA and/or kV adjustment per patient size (includes targeted exams where dose is matched to clinical indication); or iterative reconstruction. Contrast material: OMNI 300; Contrast volume: 75 ml; Contrast route: INTRAVENOUS (IV); COMPARISON: CT chest abd pel w con* 12/17/2020 4:38 PM RADIATION DOSE METRICS: Total DLP (mGy-cm): 828.33 FINDINGS: Liver: Unremarkable. Gallbladder and bile ducts: Status post cholecystectomy. No biliary ductal dilatation. Pancreas: Unremarkable. Spleen: Unremarkable. Adrenal glands: Normal. No mass. Kidneys and ureters: Bilateral renal cortical scarring and/or lobulation. No radiodense calculi. No hydronephrosis. Stomach and bowel: No bowel wall thickening. No obstruction. No pneumatosis. Appendix: Normal. Intraperitoneal space: No free fluid. No organized fluid collection. No free air. Vasculature: Minimal atherosclerotic disease. No aneurysm or dissection. Lymph nodes: No pathologically enlarged lymph nodes. Urinary bladder: Mild circumferential urinary bladder wall thickening. Reproductive: Probable involuting right ovarian corpus luteal cyst. Bones/joints: No acute osseous abnormality. Bilateral L5 pars defects with grade 1 anterolisthesis of L5 on S1. Soft tissues: Unremarkable. CT/CT abdomen pelvis w con* [id number] IMPRESSION: 1. Mild circumferential urinary bladder wall thickening. Correlate with urinalysis to exclude cystitis. 2. Additional findings, as above. Radiation Dose CTDIVOL = (mGy): DLP = 828.33 (mGy-cm)
[2021-01-28] MEDS: iohexol 300 mg/mL 100 mL Btl IV (17:02)
[2021-01-28 17:10] LABS: Reflex Lactate Order REFLEX LACTIC ORDERD
[2021-01-28 17:36] LABS: Troponin 5 2HR 27.16 ng/L (0-10)
--- NOTE | 2021-01-28 17:56 | ECG_ITS ---
[facility] Test Date: 2021-01-28 Pat Name: Donita Aguilar Department: Room: EDIP Gender: Female Collaborative Physician: : 1985 Requested By: Shravan Nick Order Number: [id number] Faviola MD: Riccardo Burch M.D. Measurements Intervals [place] Rate: 84 P: 61 NM: 164 QRS: 37 QRSD: 92 T: 103 QT: 338 QTc: 400 Interpretive Statements SINUS RHYTHM POSSIBLE LEFT ATRIAL ENLARGEMENT [-0.1mV P WAVE IN V1/V2] POSSIBLE INFERIOR MYOCARDIAL INFARCTION [30 ms Q WAVE IN II/aVF], OF INDETERMINATE AGE MODERATE T-WAVE ABNORMALITY, CONSIDER LATERAL ISCHEMIA [-0.1+ mV T WAVE IN I/aVL/V5/V6] Compared to ECG 01/28/2021 13:44:08 T-wave abnormality now present Possible ischemia now present Myocardial infarct finding still present Electronically Signed On 01-29-2021 12:23:28 CDT by Riccardo Burch M.D. [id number]
--- NOTE | 2021-01-28 18:01 | P.HP_ITS ---
Providers/Chief Complaint Admitting Physician: Bernard Levi MD Primary Care Provider: SUZANNE Dias Chief Complaint: CHEST PAIN, LOW SUGAR, BACK PAIN History of Present Illness Donita Aguilar is a 35 year old female with past medical history of diabetes, Diabetic gastroparesis, hypertension, came in with chief complaint of , chest pain as , which is on and off, central, radiating to back,5/10 in severity. Upon arrival in the ER. She was worked up for above-mentioned complaint. Pertinent Imaging studies: CT abdomen pelvis w con: Mild circumferential urinary bladder wall thickening. XR chest :No infiltrates Pertinent labs: Troponin T without significant delta. Serum sodium 123, random blood sugar: 911 , lactic acid:4.4 , serum creatinine:1.1 , Urinalysis: Dirty Patient was started on insulin drip in the ER: Review of Systems Const: Denies: fever(s), chills, body aches, change in appetite or diaphoresis Card: Denies: palpitations, edema, swelling of feet/ankles, dyspnea on exertion, orthopnea or leg pain with exertion Resp: Denies: dyspnea, productive cough, wheezing or pain on inspiration GI: Denies: abdominal pain, nausea, vomiting, diarrhea or constipation : Denies: flank pain Neuro: Denies: headache(s), difficulty walking or confusion Medications/Allergies Home Medications Medication Instructions Recorded Confirmed Last Taken Type insulin glargine 100 unit/mL (3 30 unit SUBCUT BID@0800,1600 #54 ml 08/19/20 01/28/21 01/27/21 Rx mL) subcutaneous pen insulin lispro 100 unit/mL See Rx Instructions .ROUTE 08/19/20 01/28/21 Unknown Rx subcutaneous pen .COMPLEX #18 ml glucagon HCl 1 mg solution for 1 mg SUBCUT Q20M PRN #3 ea 08/22/20 01/28/21 Unknown Rx injection Allergies Allergy/AdvReac Type Severity Reaction Status Date / Time acetaminophen AdvReac Mild ADR-Gastrointestinal Verified 12/17/20 16:33 Upset PFSH Acute PFSH: Medical History Anxiety Arnold-Chiari malformation Chronic headache Diabetic gastroparesis -continue Reglan Diabetic neuropathy associated with type 1 diabetes mellitus DKA (diabetic ketoacidoses) Esophagitis Exposure to severe acute respiratory syndrome coronavirus 2 (SARS-CoV-2) -COVID-19 negative (PCR) HTN (hypertension) Hyperglycemia Lymphadenitis Migraine headache Non-alcoholic fatty liver disease Pancreatitis PID (pelvic inflammatory disease) Pleural effusion 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 Pyelonephritis Recurrent UTI Respiratory failure Sepsis Type 1 diabetes mellitus Uncontrolled type 1 diabetes mellitus Ureterolithiasis Surgical History History of cholecystectomy History of endoscopy History of lung surgery -s/p LLL lobectomy secondary to cavitary pneumonia (2017) Family History Grandfather Diabetes Other Heart disease Hypertension Social History Smoking and tobacco status: current every day smoker cigarettes Packs smoked p er day: 0.5 Second hand smoke exposure: Yes Alcohol intake: never Household members: children Housing: House Marital status: Single Current occupational status: unemployed Female Reproductive History: Date of last menstrual period: 11/23/20 Vitals/I&O/Wt Last Vital Signs Temp 98 F 01/28/21 11:48 Pulse 83 01/28/21 11:48 Resp 16 01/28/21 11:48 BP 105/73 01/28/21 11:48 Pulse Ox 97 01/28/21 11:48 Weight last 48 hrs Weight 51.71 kg Physical Exam Const: COMMON NORMALS: patient oriented x3 HENMT: COMMON NORMALS: normocephalic and atraumatic HEAD & SCALP: normocephalic and atraumatic Resp: COMMON NORMALS: normal respiratory effort and clear to auscultation bilaterally AUSCULTATION: clear to auscultation bilaterally Cardio: COMMON NORMALS: regular rate, regular rhythm, S1 normal heart sound present, S2 normal heart sound present, No gallops present (Cardio), No murmurs present (Cardio), No rub (Cardio) and Peripheral pulses 2+ throughout RATE: regular rate RHYTHM: regular rhythm HEART SOUNDS: S1 normal heart sound present and S2 normal heart sound present PERIPHERAL PULSES: Peripheral pulses 2+ throughout GI: COMMON NORMALS: Normal to inspection, nondistended, normoactive bowel sounds present, Soft to palpation, non-tender, No hepatosplenomegaly present and no masses AUSCULTATION: Yes normoactive bowel sounds PALPATION: Yes Soft to palpation and Yes No hepatosplenomegaly present RECTAL EXAM: deferred Extremity: COMMON NORMALS: no clubbing, cyanosis or edema and no pedal edema Neuro: COMMON NORMALS: patient oriented x3 Data : 01/28/21 15:00 01/28/21 15:00 Micro: Microbiology 01/28/21 15:06 Blood Culture - Preliminary Blood SPECIMEN COLLECTED 01/28/21 15:00 Blood Culture - Preliminary Blood SPECIMEN COLLECTED A&P Assessment and plan (1) Acute hyperglycemia: Acute hyperglycemia secondary to uncontrolled diabetes secondary to medication noncompliance Initially on insulin drip in the ER: Currently the insulin drip has been stopped. Lantus 30 units subcu twice daily Medium dose sliding scale insulin Fingerstick glucose Carbohydrate consistent diet Status: Acute (2) Complicated UTI (urinary tract infection): Urine culture Ceftriaxone 1 g IV every 24 hours daily Status: Acute (3) Elevated lactic acid level: Likely secondary to dehydration secondary to hyperglycemia; Follow repeat lactic acid Follow blood culture Urine culture Status: Acute Attestations Medical Necessity Statement*: Patient needs to be in the hospital for management of acute hyperglycemia. Coding Level of Care Code Acute Law Researcher for g Fwd Exam Detailed Diagnoses Acute hyperglycemia R73.9 Complicated UTI (urinary tract infection) N39.0 Elevated lactic acid level R79.89
[2021-01-28 18:03] LABS: Troponin 5 2HR Delta -1.84 ABS# (0-10)
[2021-01-28 18:25] LABS: Glucose Point of Care 515 mg/dL (70-110)
[2021-01-28 19:00] LABS: Lactic Acid level (Lactate) 2.7 mmol/L (0.5-2.2)
[2021-01-28 19:29] VITALS: BP 114/84; PULSE 76; RESP 14; O2SAT 96
--- NOTE | 2021-01-28 19:38 | PC.NURSE ---
report received on pt at this time and I assume care. noted no assessment completed.
[2021-01-28] MEDS: enoxaparin 30 mg/0.3 mL Syringe SUBCUT (19:40)
[2021-01-28] MEDS: cefTRIAXone 1,000 MG in sodium chloride 0.9% (plus) 50 ML 100 MG IV (19:40)
[2021-01-28 19:59] VITALS: BP 104/75; PULSE 116; RESP 18; TEMP 36.4; O2SAT 94
[2021-01-28 20:21] VITALS: BP 104/75; PULSE 116; RESP 18; TEMP 36.4; O2SAT 94
[2021-01-28] MEDS: insulin regular-human 100 units/1 mL 20 UNIT IVP (20:49)
[2021-01-28] MEDS: insulin glargine 100 units/1 mL 30 UNIT SUBCUT (20:57)
[2021-01-28 21:29] LABS: Troponin 5 6HR 25.64 ng/L (0-10); Troponin 5 6HR Delta -3.36 ng/L (0-12)
[2021-01-28 22:05] LABS: Glucose Point of Care 278 mg/dL (70-110)
[2021-01-28] MEDS: sodium chloride 0.9% 1,000 ML 150 ML IV (22:06)
[2021-01-28 23:36] VITALS: BP 96/63; PULSE 75; RESP 18; TEMP 37; O2SAT 96
[2021-01-29] VITALS (9 sets, daily range): BP systolic 79–105; BP diastolic 58–71; PULSE 66–71; RESP 16–18; TEMP 36.6–37.1; O2SAT 96–98
[2021-01-29] MEDS: oxyCODONE-APAP 5-325 mg Tablet 1 TAB PO ×2 (00:07→08:21)
--- NOTE | 2021-01-29 03:55 | PC.NURSE ---
Blood pressure Pt has a mannual BP of 79/58, physician notified, no new orders received at this time
[2021-01-29] MEDS: sodium chloride 0.9% 1,000 ML 150 ML IV (04:04)
[2021-01-29 05:03] LABS: Basophils # 0.1 10^3/uL (0.0-0.1); Basophils % 0.5 %; Eosinophils # 0.1 10^3/uL (0.0-0.8); Eosinophils % 0.8 %; Hematocrit 35.9 % (37.0-47.0); Hemoglobin 12.1 g/dL (11.5-15.3); Lymphocytes # 3.3 10^3/uL (0.8-4.8); Lymphocytes % 31.4 %; Mean Corpuscular HGB Conc 33.7 g/dL (30.0-36.0); Mean Corpuscular Hemoglobin 28.5 pg (28.0-34.0); Mean Corpuscular Volume 84.5 fL (81-99); Mean Platelet Volume 11.6 fL (7.4-10.4); Monocytes # 0.7 10^3/uL (0.2-0.9); Monocytes % 6.6 %; Neutrophils # 6.42 10^3/uL (1.8-7.7); Neutrophils % 60.3 %; Nucleated Red Blood Cells % 0 %; Platelet Count 195 10^3/cmm (130-400); Red Blood Count 4.25 10^6/uL (4.1-5.3); Red Cell Distribution Width 12.1 % (12.1-15.1); White Blood Count 10.6 10^3/uL (4.0-10.0)
[2021-01-29 05:32] LABS: Alanine Aminotransferase 32 U/L (0-33); Albumin Level 2.7 g/dL (3.5-5.2); Alkaline Phosphatase 118 IU/L (35-105); Anion Gap 9.5 (5-19); Aspartate Amino Transferase 76 U/L (0-32); Blood Urea Nitrogen 13 mg/dL (6-20); Calcium 7.7 mg/dL (8.5-10.5); Carbon Dioxide 24 mmol/L (22-29); Chloride 109 mmol/L (98-107); Globulin 2.5 g/dL (1.3-4.6); Glomerular Filtration Rate 114.4 mL/min (90-130); Glucose 118 mg/dL (65-115); Magnesium 1.5 mg/dL (1.7-2.3); Osmolality Calculated 289 mOsm/kg (285-295); Phosphorus 2.9 mg/dL (2.5-4.5); Potassium 3.5 mmol/L (3.5-5.1); Sodium 139 mmol/L (136-145); Total Bilirubin 0.2 mg/dL (0.15-1.2); Total Protein 5.2 g/dL (6.6-8.7)
[2021-01-29 05:34] LABS: Procalcitonin 0.05 ng/mL (0-0.5)
[2021-01-29 06:46] LABS: Glucose Point of Care 189 mg/dL (70-110)
[2021-01-29] MEDS: insulin glargine 100 units/1 mL 30 UNIT SUBCUT (08:07)
--- NOTE | 2021-01-29 09:57 | PM.DCS ---
Discharge Providers Date of Admission: 01/28/21 17:09 Date of Discharge: January 29, 2021 Attending Provider at Admission: Bernard Levi MD Attending Provider at Discharge: Bernard Levi MD Primary Care Provider: SUZANNE Dias Diagnoses at Discharge Discharge Diagnosis (1) Acute hyperglycemia: Status: Resolved (2) Complicated UTI (urinary tract infection): Status: Acute (3) Elevated lactic acid level: Status: Resolved Reason for Visit Reason for Visit: CHEST PAIN, LOW SUGAR, BACK PAIN Hospital Course Hospital Course Donita Aguilar is a 35 year old female with past medical history of diabetes, Diabetic gastroparesis, hypertension, came in with chief complaint of , chest pain as , which is on and off, central, radiating to back,5/10 in severity.Upon arrival in the ER. She was worked up for above-mentioned complaint. Pertinent Imaging studies: CT abdomen pelvis w con: Mild circumferential urinary bladder wall thickening.XR chest :No infiltrates. Pertinent labs: Troponin T without significant delta.EKG no acute ST-T Waves changes. Serum sodium 123, random blood sugar: 911 , lactic acid:4.4 , serum creatinine:1.1. Urinalysis: Dirty Patient was started on insulin drip in the ER: She was admitted for the management of Acute hyperglycemia 2/2 to uncontrolled DM. After initial few hours of insulin drip, she was switched to her home regimen Lantus 30 units subcu BID as well as moderate dose sliding scale insulin. At the time of discharge her blood sugar was well controlled, she denied any nausea vomiting , abdominal pain , chest pain is resolved likely atypical chest pain.For UTI she was discharged on levofloxacin 500 mg p.o. daily for 3 days.She will continue to follow-up with endocrine doctor as an outpatient. Physical Exam Const: COMMON NORMALS: patient oriented x3 HENMT: COMMON NORMALS: normocephalic and atraumatic HEAD & SCALP: normocephalic and atraumatic Resp: COMMON NORMALS: normal respiratory effort and clear to auscultation bilaterally AUSCULTATION: clear to auscultation bilaterally Cardio: COMMON NORMALS: regular rate, regular rhythm, S1 normal heart sound present, S2 normal heart sound present, No gallops present (Cardio), No murmurs present (Cardio), No rub (Cardio) and Peripheral pulses 2+ throughout RATE: regular rate RHYTHM: regular rhythm HEART SOUNDS: S1 normal heart sound present and S2 normal heart sound present PERIPHERAL PULSES: Peripheral pulses 2+ throughout GI: COMMON NORMALS: Normal to inspection, nondistended, normoactive bowel sounds present, Soft to palpation, non-tender, No hepatosplenomegaly present and no masses AUSCULTATION: Yes normoactive bowel sounds PALPATION: Yes Soft to palpation and Yes No hepatosplenomegaly present RECTAL EXAM: deferred Extremity: COMMON NORMALS: no clubbing, cyanosis or edema and no pedal edema Neuro: COMMON NORMALS: patient oriented x3 Discharge Data Data Completed and Pending: Completed Studies During Hospitalization Category Date Time Status CT abdomen pelvis w con* [id number] Stat Cat Scan 01/28/21 16:49 Completed XR chest 1V maria luz ble [id number] Stat Exams 01/28/21 11:56 Completed Pending at discharge Category Date Time Status Blood Culture Sta t Lab 01/28/21 15:06 Results Complete Blood Co unt w/Auto AM LABS Lab 01/30/21 04:00 Ordered Complete Blood Co unt w/Auto AM LABS Lab 01/31/21 04:00 Ordered Comprehensive Met abolic Panel AM LA BS Lab 01/30/21 04:00 Ordered Comprehensive Met abolic Panel AM LA BS Lab 01/31/21 04:00 Ordered Urine Culture Sta t Lab 01/28/21 13:17 Received Labs from last 24 hours 01/29/21 01/29/21 01/29/21 06:36 04:26 04:26 WBC RBC Hgb Hct MCV MCH MCHC RDW Plt Count MPV Neut % (Auto) Lymph % (Auto) [place] % (Auto) Eos % (Auto) Baso % (Auto) Neut # (Auto) Lymph # (Auto) [place] # (Auto) Eos # (Auto) Baso # (Auto) Nucleated RBC % (a uto) Nucleated RBCs # Specimen Type Sample Site ABG pH ABG pCO2 ABG pO2 ABG HCO3 ABG O2 Saturation ABG Base Excess Braulio Test A-a O2 Gradient Hematocrit Hgb O2 Saturation Carboxyhemoglobin Methemoglobin Total Hemoglobin Sodium 139 D Potassium 3.5 Glucose 118 H Ionized Calcium O2 Delivery Device FiO2 Blueprinting And Photocopy Supervisor ID Chloride 109 H Carbon Dioxide 24 Anion Gap 9.5 BUN 13 Creatinine 0.6 GFR Calculation 114.4 POC Glucose 189 H Calculated Osmolal ity 289 Lactic Acid Lactic Acid (Sepsi s) Calcium 7.7 L Phosphorus 2.9 Magnesium 1.5 L Total Bilirubin 0.2 AST 76 H ALT 32 Alkaline Phosphata se 118 H Creatine Kinase Troponin T Baselin e Troponin T 120 Min [place] Troponin T Troponin T Hi Sens 6Hr Troponin T Hi Sens 6Hr Delta Total Protein 5.2 L D Albumin 2.7 L Globulin 2.5 Lipase Procalcitonin 0.05 Urine Color Urine Appearance Urine pH Ur Specific Gravit y Urine Protein Urine Glucose (UA) Urine Ketones Urine Blood Urine Nitrate Urine Bilirubin Urine Urobilinogen Ur Leukocyte Denise ase Urine RBC Urine WBC Ur Squamous Epith Cells Amorphous Sediment Urine Bacteria Serum Ketones 01/29/21 01/28/21 01/28/21 04:26 21:31 21:00 WBC 10.6 H RBC 4.25 Hgb 12.1 Hct 35.9 L MCV 84.5 MCH 28.5 MCHC 33.7 RDW 12.1 Plt Count 195 MPV 11.6 H Neut % (Auto) 60.3 Lymph % (Auto) 31.4 [place] % (Auto) 6.6 Eos % (Auto) 0.8 Baso % (Auto) 0.5 Neut # (Auto) 6.42 Lymph # (Auto) 3.3 [place] # (Auto) 0.7 Eos # (Auto) 0.1 Baso # (Auto) 0.1 Nucleated RBC % (a uto) 0 Nucleated RBCs # 0.0 Specimen Type Sample Site ABG pH ABG pCO2 ABG pO2 ABG HCO3 ABG O2 Saturation ABG Base Excess Braulio Test A-a O2 Gradient Hematocrit Hgb O2 Saturation Carboxyhemoglobin Methemoglobin Total Hemoglobin Sodium Potassium Glucose Ionized Calcium O2 Delivery Device FiO2 [employer]print[employer] And Photoc[employer] Supervisor ID Chloride Carbon Dioxide Anion Gap BUN Creatinine GFR Calculation POC Glucose 278 H Calculated Osmolal ity Lactic Acid Lactic Acid (Sepsi s) Calcium Phosphorus Magnesium Total Bilirubin AST ALT Alkaline Phosphata se Creatine Kinase Troponin T Baselin e Troponin T 120 Min [place] Troponin T Troponin T Hi Sens 6Hr 25.64 H Troponin T Hi Sens 6Hr Delta -3.36 L Total Protein Albumin Globulin Lipase Procalcitonin Urine Color Urine Appearance Urine pH Ur Specific Gravit y Urine Protein Urine Glucose (UA) Urine Ketones Urine Blood Urine Nitrate Urine Bilirubin Urine Urobilinogen Ur Leukocyte Denise ase Urine RBC Urine WBC Ur Squamous Epith Cells Amorphous Sediment Urine Bacteria Serum Ketones 01/28/21 01/28/21 01/28/21 18:35 18:22 17:00 WBC RBC Hgb Hct MCV MCH MCHC RDW Plt Count MPV Neut % (Auto) Lymph % (Auto) [place] % (Auto) Eos % (Auto) Baso % (Auto) Neut # (Auto) Lymph # (Auto) [place] # (Auto) Eos # (Auto) Baso # (Auto) Nucleated RBC % (a uto) Nucleated RBCs # Specimen Type Sample Site ABG pH ABG pCO2 ABG pO2 ABG HCO3 ABG O2 Saturation ABG Base Excess Braulio Test A-a O2 Gradient Hematocrit Hgb O2 Saturation Carboxyhemoglobin Methemoglobin Total Hemoglobin Sodium Potassium Glucose Ionized Calcium O2 Delivery Device FiO2 [employer]print[employer] Photoc[employer] Supervisor ID Chloride Carbon Dioxide Anion Gap BUN Creatinine GFR Calculation POC Glucose 515 H* Calculated Osmolal ity Lactic Acid Lactic Acid (Sepsi s) 2.7 H Calcium Phosphorus Magnesium Total Bilirubin AST ALT Alkaline Phosphata se Creatine Kinase Troponin T Baselin e Troponin T 120 Min [place] 27.16 H Delta Troponin T -1.84 L Troponin T Hi Sens 6Hr Troponin T Hi Sens 6Hr Delta Total Protein Albumin Globulin Lipase Procalcitonin Urine Color Urine Appearance Urine pH Ur Specific Gravit y Urine Protein Urine Glucose (UA) Urine Ketones Urine Blood Urine Nitrate Urine Bilirubin Urine Urobilinogen Ur Leukocyte Denise ase Urine RBC Urine WBC Ur Squamous Epith Cells Amorphous Sediment Urine Bacteria Serum Ketones 01/28/21 01/28/21 01/28/21 15:00 15:00 15:00 WBC RBC Hgb Hct MCV MCH MCHC RDW Plt Count MPV Neut % (Auto) Lymph % (Auto) [place] % (Auto) Eos % (Auto) Baso % (Auto) Neut # (Auto) Lymph # (Auto) [place] # (Auto) Eos # (Auto) Baso # (Auto) Nucleated RBC % (a uto) Nucleated RBCs # Specimen Type Sample Site ABG pH ABG pCO2 ABG pO2 ABG HCO3 ABG O2 Saturation ABG Base Excess Braulio Test A-a O2 Gradient Hematocrit Hgb O2 Saturation Carboxyhemoglobin Methemoglobin Total Hemoglobin Sodium Potassium Glucose Ionized Calcium O2 Delivery Device FiO2 [employer]print[employer] Photoc[employer] Supervisor ID Chloride Carbon Dioxide Anion Gap BUN Creatinine GFR Calculation POC Glucose Calculated Osmolal ity Lactic Acid 4.4 H* Lactic Acid (Sepsi s) Calcium Phosphorus Magnesium Total Bilirubin AST ALT Alkaline Phosphata se Creatine Kinase Troponin T Baselin e 29 H Troponin T 120 Min [place] Troponin T Troponin T Hi Sens 6Hr Troponin T Hi Sens 6Hr Delta Total Protein Albumin Globulin Lipase Procalcitonin Urine Color Urine Appearance Urine pH Ur Specific Gravit y Urine Protein Urine Glucose (UA) Urine Ketones Urine Blood Urine Nitrate Urine Bilirubin Urine Urobilinogen Ur Leukocyte Denise ase Urine RBC Urine WBC Ur Squamous Epith Cells Amorphous Sediment Urine Bacteria Serum Ketones Negative 01/28/21 01/28/21 01/28/21 15:00 15:00 13:18 WBC 8.5 RBC 4.94 Hgb 13.9 Hct 42.0 MCV 85.0 MCH 28.1 MCHC 33.1 RDW 12.1 Plt Count 200 MPV 11.8 H Neut % (Auto) 63.4 Lymph % (Auto) 29.5 [place] % (Auto) 5.7 Eos % (Auto) 0.6 Baso % (Auto) 0.6 Neut # (Auto) 5.36 Lymph # (Auto) 2.5 [place] # (Auto) 0.5 Eos # (Auto) 0.1 Baso # (Auto) 0.1 Nucleated RBC % (a uto) 0 Nucleated RBCs # 0.0 Specimen Type Arterial Sample Site Brachial, right ABG pH 7.38 ABG pCO2 43.2 ABG pO2 83.7 ABG HCO3 25.4 ABG O2 Saturation 97.3 ABG Base Excess 0.0 Braulio Test Pos A-a O2 Gradient 1.6 L Hematocrit 44.2 Hgb O2 Saturation 95.5 Carboxyhemoglobin 1.3 Methemoglobin 0.5 Total Hemoglobin 14.4 Sodium 123 L 122.0 L Potassium 4.6 4.5 Glucose 911 H* 1081.0 H Ionized Calcium 1.2 O2 Delivery Device Room air FiO2 21.0 Blueprinting And Photoc[employer] Supervisor ID [place] Chloride 85 L Carbon Dioxide 22 Anion Gap 20.6 H BUN 14 Creatinine 1.1 H GFR Calculation 56.9 L POC Glucose Calculated Osmolal ity 302 H Lactic Acid Lactic Acid (Sepsi s) Calcium 8.7 Phosphorus Magnesium Total Bilirubin 0.2 AST 21 ALT 23 Alkaline Phosphata se 151 H Creatine Kinase 37 Troponin T Baselin e Troponin T 120 Min [place] Troponin T Troponin T Hi Sens 6Hr Troponin T Hi Sens 6Hr Delta Total Protein 7.0 Albumin 3.4 L Globulin 3.6 Lipase 35 Procalcitonin Urine Color Urine Appearance Urine pH Ur Specific Gravit y Urine Protein Urine Glucose (UA) Urine Ketones Urine Blood Urine Nitrate Urine Bilirubin Urine Urobilinogen Ur Leukocyte Denise ase Urine RBC Urine WBC Ur Squamous Epith Cells Amorphous Sediment Urine Bacteria Serum Ketones 01/28/21 01/28/21 13:17 12:50 WBC RBC Hgb Hct MCV MCH MCHC RDW Plt Count MPV Neut % (Auto) Lymph % (Auto) [place] % (Auto) Eos % (Auto) Baso % (Auto) Neut # (Auto) Lymph # (Auto) [place] # (Auto) Eos # (Auto) Baso # (Auto) Nucleated RBC % (a uto) Nucleated RBCs # Specimen Type Sample Site ABG pH ABG pCO2 ABG pO2 ABG HCO3 ABG O2 Saturation ABG Base Excess Braulio Test A-a O2 Gradient Hematocrit Hgb O2 Saturation Carboxyhemoglobin Methemoglobin Total Hemoglobin Sodium Potassium Glucose Ionized Calcium O2 Delivery Device FiO2 Blueprinting And Photoc[employer] Supervisor ID Chloride Carbon Dioxide Anion Gap BUN Creatinine GFR Calculation POC Glucose > 600 H* Calculated Osmolal ity Lactic Acid Lactic Acid (Sepsi s) Calcium Phosphorus Magnesium Total Bilirubin AST ALT Alkaline Phosphata se Creatine Kinase Troponin T Baselin e Troponin T 120 Min [place] Troponin T Troponin T Hi Sens 6Hr Troponin T Hi Sens 6Hr Delta Total Protein Albumin Globulin Lipase Procalcitonin Urine Color Colorless Urine Appearance Sl hazy Urine pH 5 Ur Specific Gravit y 1.005 Urine Protein Neg Urine Glucose (UA) 4+ H Urine Ketones Negative Urine Blood 2+ H Urine Nitrate Negative Urine Bilirubin Neg Urine Urobilinogen Norm Ur Leukocyte Denise ase Negative Urine RBC 0-4 H Urine WBC 25-40 H Ur Squamous Epith Cells 0-4 H Amorphous Sediment Not Reportable Urine Bacteria 2+ H Serum Ketones Vitals: Last Vital Signs Temp 98.8 F 01/29/21 07:22 Pulse 69 01/29/21 07:22 Resp 16 01/29/21 08:21 BP 105/71 01/29/21 07:22 Pulse Ox 98 01/29/21 07:22 Discharge Plan Discharge Patient Disposition: Home Condition: Stable Prescriptions: New levofloxacin 500 mg tablet 500 mg PO DAILY 3 Days RF: 0 Continued Lantus Solostar U-100 Insulin 100 unit/mL (3 mL) insulin pen 30 unit SUBCUT BID@0800,1600 Qty: 54 RF: 3 insulin lispro [Humalog KwikPen Insulin] 100 unit/mL insulin pen See Rx Instructions .ROUTE .COMPLEX Qty: 18 RF: 3 Glucagon (HCl) Emergency Kit 1 mg recon soln 1 mg SUBCUT Q20M PRN (Reason: hypoglycemia) Qty: 3 RF: 3 Discharge Orders: Discharge Order (Routine); Ordered 01/29/21 Ordered By: Bernard Levi Referrals: Elizabeth Dougherty FNP [Primary Care Provider] - 2 weeks (PLEASE CALL FOR APPOINTMENT [phone]) Discharge Diet: Diabetic Discharge Activity: Resume usual activity Patient Instructions: Levofloxacin (By mouth), Hyperglycemia, Opioid Safety Discharge Attestations Time Spent in Discharge Care*: less than 30 min Specific Discharge Activities: educating patient, educating and/or supporting family/caregiver, discussing with manager case management/social workers/dc planners, documenting/other paperwork and evaluating patient/reviewing data Status at Discharge: Cognitive status at discharge: cognitively intact, Behavioral status at discharge: cooperative and independent in ADL's, Quality Metrics Clinical Quality Measures During this hospital stay, did patient experience: None Coding Level of Care Code Acute Chg DC note Diagnoses Acute hyperglycemia R73.9 Complicated UTI (urinary tract infection) N39.0 Elevated lactic acid level R79.89
--- NOTE | 2021-01-29 10:26 | PC.NURSE ---
discharge instructions given to patient and patient verbalized understanding of instructions. patient's iv removed and 2x2 and coban put on site. patient's family called. patient taken to private vehicle via wheelchair by staff.
--- NOTE | 2021-02-01 07:16 | PC.RESP ---
SMOKING CESSATION INFORMATION SENT TO PATIENT.
--- NOTE | 2021-02-03 08:17 | PC.SOCIAL ---
called patient twice for hospital discharge, follow up call. No answer. Message left.
== END 2021-01-29 10:29 | disposition home or self-care (01) ==
LOC: ER 17:24 → ER IP 17:32 → MEDSURG 01-29 08:20
PROVIDERS: Admitting Provider Internal Medicine; Emergency Provider Family Medicine; PCP Nurse Practitioner Family; Visit Provider Internal Medicine
DX: E11.65 Type 2 diabetes mellitus with hyperglycemia (principal); N39.0 Urinary tract infection, site not specified; R79.89 Other specified abnormal findings of blood chemistry; I10 Essential (primary) hypertension; Z79.4 Long term (current) use of insulin; F41.9 Anxiety disorder, unspecified; F17.210 Nicotine dependence, cigarettes, uncomplicated
CPT/HCPCS: 36415; 36416; 36600; 71045; 74177; 80051; 80053; 81001; 82009; 82330; 82550; 82805; 82962; 83605; 83690; 83735; 84100; 84145; 84484; 85025; 87040; 87086; 93005; 96365; 96366; 96367; 96372; 99285; G0378; J0696; J1650; J1815 ×2; J7030; J7050; Q9967

== ENCOUNTER → 2021-07-02 15:18 | Outpatient (BNVA) | payer BC, MEDICAID, SELFPAY | PROVIDERS: PCP Nurse Practitioner Family; Visit Provider Family Medicine | DX: R06.2 Wheezing (principal); R05.9 Cough, unspecified | CPT/HCPCS: 87400; 87635 ==

== ENCOUNTER 2022-01-22 05:32 | Observation (INO) | payer BC, MEDICAID, SELFPAY ==
[2022-01-22] VITALS (37 sets, daily range): BP systolic 138–184; BP diastolic 87–120; PULSE 66–94; RESP 0–34; TEMP 33.5–36.8; O2SAT 97–100; BMI 29.2
--- NOTE | 2022-01-22 05:52 | CT_ITS ---
WS: [id number] CT HEAD TECHNIQUE: Noncontrast CT of the head obtained from the skullbase to the vertex. CLINICAL INFORMATION: headache, ams COMPARISON: None. DLP: 1046.[address] scans at [facility] use at least one of these dose optimization techniques: automated e xposure control; mA and/or kV adjustment per patient size (includes targeted exams where dose is matc hed to clinical indication); or iterative reconstruction. FINDINGS: No evidence of intracranial hemorrhage or mass effect. Ventricular system and basal cisterns are huston nt. No extra-axial fluid collections. No evidence of mass or mass effect. Normal florentino-white different iation. Mild cavernous carotid calcification. Paranasal sinuses and mastoid air cells are well aerated. .Normal visualized soft tissues. CT/CT head wo con* [id number] IMPRESSION: 1. No evidence of intracranial hemorrhage or mass effect. 2. Normal florentino-white differentiation. 3. No acute intracranial findings.
--- NOTE | 2022-01-22 05:52 | XRR_ITS ---
PROCEDURE INFORMATION: Exam: XR Chest Exam date and time: 01/22/2022 6:04 AM Age: 36 years old Clinical indication: Angina; Prior surgery; Surgery date: 6+ months; Surgery type: Lt lower lobe left lung due to staph and pneumonia states PT; Patient HX: Chest pain this am; Additional info: Hypoglycemia, HX pneumonia TECHNIQUE: Imaging protocol: Radiologic exam of the chest. Views: 1 view. COMPARISON: CR (CHEST, ) 01/28/2021 12:09 PM FINDINGS: Lungs: There are perihilar patchy opacity seen in the right hemithorax today findings that may represent atelectasis although a right perihilar pneumonitis cannot be excluded. Pleural spaces: Unremarkable. No pleural effusion. No pneumothorax. Heart/Mediastinum: Unremarkable. No cardiomegaly. Bones/joints: Unremarkable. XR/XR chest 1V portable [id number] IMPRESSION: There are ground-glass perihilar opacities present the right hemithorax today that may represent developing right-sided pneumonitis or atelectasis.
--- NOTE | 2022-01-22 05:56 | ECG_ITS ---
[facility] Test Date: 2022-01-22 Pat Name: Donita Aguilar Department: Room: Gender: Female System Safety Manager: : 1985 Requested By: Jak Saldana Order Number: [id number] Faviola MD: Travis Gallegos M.D. Measurements Intervals [place] Rate: 72 P: 78 [place]: 130 QRS: 84 QRSD: 105 T: 0 QT: 451 QTc: 495 Interpretive Statements SINUS RHYTHM PROBABLE INFERIOR MYOCARDIAL INFARCTION , OF INDETERMINATE AGE [35 ms Q WAVE IN II/aVF] Compared to ECG 01/28/2021 18:03:51 T-wave abnormality no longer present Possible ischemia no longer present Myocardial infarct finding still present Electronically Signed On 01-22-2022 9:32:26 CDT by Travis Gallegos M.D. [email or web address]
--- NOTE | 2022-01-22 05:57 | W.ED.GENADLT ---
Documented by User: Jak Larose DO 01/22/22 06:15 HPI - General Adult General: Chief complaint: General Medical Stated complaint: hypoglycemia Time Seen by Provider: 01/22/22 05:36 History of Present Illness: 36-year-old female who is an inmate at the local intermediate. She is an insulin-dependent diabetic, and is allowed to administer her own insulin. She is on a sliding scale of fast acting insulin +30 units of Lantus twice daily. EMS was called for a blood sugar of 39, and seizure-like activity. She was found to be minimally responsive. She was given a bolus of D10, with sugar rising to 200, but has fallen back down now to 109. She is confused. She does not know when she last administered her insulin. She is only been at the intermediate for 2 days. She does state that she has been eating. She was an inpatient in [facility] recently for pneumonia she says. She has antibiotics that were filled on 01/16. She does complain of a significant headache, but cannot tell me whether or not she hit her head. Onset (ago): minute(s) Location: head Radiation: non-radiation Severity: moderate Pain Consistency: constant Relieving factors: none Exacerbating factors: none Associated symptoms: Reports confusion, headache(s) and nausea; Deny chest pain, cough, decreased appetite, dyspnea, fevers/chills, short of breath or vomiting Review of Systems Eyes: Reports: blurry vision Card: Denies: chest pain Resp: Denies: dyspnea GI: Reports: nausea; Denies: vomiting Neuro: Reports: headache(s) and confusion [facility] ED PFSH: Medical History Acute hyperglycemia Anxiety Arnold-Chiari malformation Chronic headache Complicated UTI (urinary tract infection) Cystitis -UA shows evidence of infection; blood cx prelim negative, urine cx-Strep agalactaie -on Ceftriaxone; plan to d/c on cefuroxime -resolved leukocytosis, afebrile -UA has evidence of hematuria; repeat UA -in light of continued L CVA tenderness, oliguria, hematuria; will re-evaluate for nephrolithiasis and hydronephrosis with non-contrast CT A/P. She previously had a contrast CT on 05/23 with noted diffuse bladder wall thickening but no hydronephrosis, bilateral renal cortical scarring likely due to prior pyelonephritis, mild diffuse fatty liver infiltration, right ovarian cyst -repeat imaging unchanged Diabetic gastroparesis -continue Reglan Diabetic neuropathy associated with type 1 diabetes mellitus DKA (diabetic ketoacidoses) Elevated lactic acid level Esophagitis Exposure to severe acute respiratory syndrome coronavirus 2 (SARS-CoV-2) -COVID-19 negative (PCR) HTN (hypertension) Hyperglycemia Lymphadenitis Migraine headache Non-alcoholic fatty liver disease Pancreatitis PID (pelvic inflammatory disease) Pleural effusion 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 Pyelonephritis Recurrent UTI Respiratory failure Sepsis Type 1 diabetes mellitus Uncontrolled type 1 diabetes mellitus Ureterolithiasis Surgical History History of cholecystectomy History of endoscopy History of lung surgery -s/p LLL lobectomy secondary to cavitary pneumonia (2017) Family History Grandfather Diabetes Other Heart disease Hypertension Social History Smoking and tobacco status: current every day smoker cigarettes Packs smoked per day: 0.5 Second hand smoke exposure: Yes Alcohol intake: never Household members: children Housing: House Marital status: Single Current occupational status: unemployed Female Reproductive History: Date of last menstrual period: 11/23/20 Physical Exam Const: GENERAL APPEARANCE: cooperative, lethargic and ill appearing ORIENTATION/CONSCIOUSNESS: Yes lethargic HENMT: COMMON NORMALS: normocephalic, atraumatic and Normal external nose present HEAD & SCALP: normocephalic and atraumatic FACE & SINUS: normal facial exam and face symmetric NOSE: Normal external nose present Eye: COMMON NORMALS: Equal, round and reactive pupils present and EOMs intact bilaterally PUPIL: Yes Equal, round and reactive pupils present Neck/C-Spine: GENERAL: Yes trachea midline Chest: COMMONS NORMALS: normal inspection of the chest Resp: COMMON NORMALS: normal respiratory effort EFFORT & INSPECTION: Yes tachypneic and Yes uses accessory muscles AUSCULTATION: diminished lung sounds Cardio: COMMON NORMALS: regular rate and regular rhythm RATE: regular rate RHYTHM: regular rhythm GI: COMMON NORMALS: Normal to inspection, nondistended, normoactive bowel sounds present and Soft to palpation PALPATION: Yes Soft to palpation Neuro: JEET COMA SCALE: document GCS findings Jeet coma scale eye opening: To sound Jeet coma scale verbal response: Confused Jeet coma scale motor response: Obey commands [place] coma scale total score: 13 SENSORIUM/ORIENTATION: Yes lethargic SPEECH: speech normal Psych: COMMON NORMALS: cooperative Course Vital Signs: Vital signs: Vital Signs Temperature 94.7 F L 01/22/22 08:37 Pulse Rate 69 01/22/22 08:30 Respiratory Rate 4 L 01/22/22 08:30 Blood Pressure 158/101 01/22/22 08:30 Pulse Oximetry 100 01/22/22 08:30 Oxygen Delivery Me thod 01/22/22 08:30 Oxygen Flow Rate 2 01/22/22 08:30 MDM - General Adult Medical Decision Making 36-year-old female who is a insulin-dependent diabetic presenting with significant hypoglycemia. She has D10 running. Currently blood pressure is 149/94 heart rate 68, saturations are 100% on room air. She has D10 running. Labs and CT are pending. Lab Data : 01/22/22 05:46 01/22/22 05:46 Radiology Impressions Chest X-Ray 01/22/22 05:52 IMPRESSION: There are ground-glass perihilar opacities present the right hemithorax today that may represent developing right-sided pneumonitis or atelectasis. Laboratory Results WBC 8.3 10^3/uL (4.0-10.0) 01/22/22 05:46 RBC 3.55 10^6/uL (4.1-5.3) L 01/22/22 05:46 Hgb 9.2 g/dL (11.5-15.3) L 01/22/22 05:46 Hct 29.6 % (37.0-47.0) L 01/22/22 05:46 MCV 83.4 fl (81-99) 01/22/22 05:46 MCH 25.9 pg (28.0-34.0) L 01/22/22 05:46 MCHC 31.1 g/dL (30.0-36.0) 01/22/22 05:46 RDW 16.1 % (12.1-15.1) H 01/22/22 05:46 Plt Count 288 10^3/cmm (130-400) 01/22/22 05:46 MPV 9.0 fL (7.4-10.4) 01/22/22 05:46 Neut % (Auto) 71.5 % 01/22/22 05:46 Lymph % (Auto) 20.1 % 01/22/22 05:46 [place] % (Auto) 5.8 % 01/22/22 05:46 Eos % (Auto) 1.4 % 01/22/22 05:46 Baso % (Auto) 0.8 % 01/22/22 05:46 Neut # (Auto) 5.96 10^3/uL (1.8-7.7) 01/22/22 05:46 Lymph # (Auto) 1.7 10^3/uL (0.8-4.8) 01/22/22 05:46 [place] # (Auto) 0.5 10^3/uL (0.2-0.9) 01/22/22 05:46 Eos # (Auto) 0.1 10^3/uL (0.0-0.8) 01/22/22 05:46 Baso # (Auto) 0.1 10^3/uL (0.0-0.1) 01/22/22 05:46 Nucleated RBC % (auto) 0 % 01/22/22 05:46 Nucleated RBCs # 0.0 /100WBC 01/22/22 05:46 Specimen Type Arterial 01/22/22 06:07 Sample Site Radial, left 01/22/22 06:07 ABG pH 7.37 (7.35-7.45) 01/22/22 06:07 ABG pCO2 47.7 mmHg (35-45) H 01/22/22 06:07 ABG pO2 50.3 mmHg (80.0-100.0) L 01/22/22 06:07 ABG HCO3 27.2 mmol/L (22-26) H 01/22/22 06:07 ABG Base Excess 1.5 mmol/L (-2.0-2.0) 01/22/22 06:07 Braulio Test Pos 01/22/22 06:07 Hematocrit 28.5 % (37-47) L 01/22/22 06:07 O2 Delivery Device None 01/22/22 06:07 [employer] Safety [employer] Specialist ID Hensa 01/22/22 06:07 Sodium 145 mmol/L (136-145) 01/22/22 05:46 Potassium 4.0 mmol/L (3.5-5.1) 01/22/22 05:46 Chloride 110 mmol/L (98-107) H 01/22/22 05:46 Carbon Dioxide 27 mmol/L (22-29) 01/22/22 05:46 Anion Gap 12.0 (5-19) 01/22/22 05:46 BUN 33 mg/dL (6-20) H 01/22/22 05:46 Creatinine 2.0 mg/dL (0.5-0.9) H 01/22/22 05:46 GFR Calculation 28.4 mL/min (90-130) L 01/22/22 05:46 Glucose 115 mg/dL (65-115) 01/22/22 05:46 POC Glucose 105 mg/dL (70-110) 01/22/22 08:30 Calculated Osmolality 308 mOsm/kg (285-295) H 01/22/22 05:46 Lactate 1.4 mmol/L (0.5-2.2) 01/22/22 05:46 Calcium 8.4 mg/dL (8.5-10.5) L 01/22/22 05:46 Phosphorus 3.3 mg/dL (2.5-4.5) 01/22/22 05:46 Magnesium 1.6 mg/dL (1.7-2.3) L 01/22/22 05:46 Total Bilirubin 0.2 mg/dL (0.15-1.2) 01/22/22 05:46 AST 13 U/L (0-32) 01/22/22 05:46 ALT 7 U/L (0-33) 01/22/22 05:46 Alkaline Phosphatase 128 IU/L (35-105) H 01/22/22 05:46 Creatine Kinase 69 U/L (26-192) 01/22/22 05:46 Total Protein 6.9 g/dL (6.6-8.7) 01/22/22 05:46 Albumin 2.4 g/dL (3.5-5.2) L 01/22/22 05:46 Globulin 4.5 g/dL (1.3-4.6) 01/22/22 05:46 Lipase 37 U/L (13-60) 01/22/22 05:46 Urine Color Colorless (Yellow) 01/22/22 06:24 Urine Appearance Clear (CLEAR) 01/22/22 06:24 Urine pH 5 (5-7) 01/22/22 06:24 Ur Specific Schriever 1.015 (1.005-1.030) 01/22/22 06:24 Urine Protein 3+ (Negative) H 01/22/22 06:24 Urine Glucose (UA) Norm (Normal) 01/22/22 06:24 Urine Ketones Negative (Negative) 01/22/22 06:24 Urine Blood 3+ (Negative) H 01/22/22 06:24 Urine Nitrate Negative (Negative) 01/22/22 06:24 Urine Bilirubin Neg (Negative) 01/22/22 06:24 Urine Urobilinogen Norm mg/dL (Negative) 01/22/22 06:24 Ur Leukocyte Esterase Negative (Negative) 01/22/22 06:24 Urine RBC 5-10 /hpf (0-2) H 01/22/22 06:24 Urine WBC 0-4 /hpf (0-5) H 01/22/22 06:24 Ur Squamous Epith Cells 0-4 /hpf (0-5) H 01/22/22 06:24 Amorphous Sediment Not Reportable 01/22/22 06:24 Urine Bacteria Trace /hpf (NONE) 01/22/22 06:24 Urine Opiates Screen Negative ng/mL (Negative) 01/22/22 06:24 Ur Barbiturates Screen Negative ng/mL (Negative) 01/22/22 06:24 Ur Phencyclidine Scrn Negative ng/mL (Negative) 01/22/22 06:24 Ur Amphetamines Screen Negative ng/mL (Negative) 01/22/22 06:24 U Benzodiazepines Scrn Negative ng/mL (Negative) 01/22/22 06:24 Urine Cocaine Screen Negative ng/mL (Negative) 01/22/22 06:24 U Marijuana (THC) Screen Negative ng/mL (Negative) 01/22/22 06:24 Discharge Plan Discharge Patient Disposition: Admitted As Inpatient Clinical Impression: Pneumonia, Hypoglycemia due to insulin, Hypothermia, Elevated serum creatinine Condition: Stable Prescriptions: No Action insulin lispro [Humalog KwikPen Insulin] 100 unit/mL insulin pen See Rx Instructions .ROUTE .COMPLEX Qty: 18 3RF Rx Instructions: SLIDING SCALE unit subcutaneously TID with meals.; Glucagon (HCl) Emergency Kit 1 mg recon soln 1 mg SUBCUT Q20M PRN (Reason: hypoglycemia) Qty: 3 3RF Rx Instructions: until target blood sugar attained Zyvox 600 mg Tablet 600 mg PO Q12H Benadryl Allergy 25 mg Tablet 25 mg PO BID Lantus Solostar U-100 Insulin 100 unit/mL (3 mL) insulin pen 30 unit SUBCUT BID@0600,1800 Referrals: Elizabeth Dougherty FNP [Primary Care Provider] - Sign Out Sign Out Data: Patient Sign Out occurred on 01/22/22 at 06:49. Patient's care was discussed, and care was transferred from to Shravan Jones DO. Coding Level of Care Code ED Lacer And Tier for Chg Fwd Exam Comprehensive Documented by User: Shravan Jones DO 01/22/22 08:44 HPI - General Adult General: Chief complaint: General Medical Stated complaint: hypoglycemia Time Seen by Provider: 01/22/22 05:36 [facility] ED PFSH: Medical History Acute hyperglycemia Anxiety Arnold-Chiari malformation Chronic headache Complicated UTI (urinary tract infection) Cystitis -UA shows evidence of infection; blood cx prelim negative, urine cx-Strep agalactaie -on Ceftriaxone; plan to d/c on cefuroxime -resolved leukocytosis, afebrile -UA has evidence of hematuria; repeat UA -in light of continued L CVA tenderness, oliguria, hematuria; will re-evaluate for nephrolithiasis and hydronephrosis with non-contrast CT A/P. She previously had a contrast CT on 05/23 with noted diffuse bladder wall thickening but no hydronephrosis, bilateral renal cortical scarring likely due to prior pyelonephritis, mild diffuse fatty liver infiltration, right ovarian cyst -repeat imaging unchanged Diabetic gastroparesis -continue Reglan Diabetic neuropathy associated with type 1 diabetes mellitus DKA (diabetic ketoacidoses) Elevated lactic acid level Esophagitis Exposure to severe acute respiratory syndrome coronavirus 2 (SARS-CoV-2) -COVID-19 negative (PCR) HTN (hypertension) Hyperglycemia Lymphadenitis Migraine headache Non-alcoholic fatty liver disease Pancreatitis PID (pelvic inflammatory disease) Pleural effusion 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 Pyelonephritis Recurrent UTI Respiratory failure Sepsis Type 1 diabetes mellitus Uncontrolled type 1 diabetes mellitus Ureterolithiasis Surgical History History of cholecystectomy History of endoscopy History of lung surgery -s/p LLL lobectomy secondary to cavitary pneumonia (2017) Family History Grandfather Diabetes Other Heart disease Hypertension Social History Smoking and tobacco status: current every day smoker cigarettes Packs smoked per day: 0.5 Second hand smoke exposure: Yes Alcohol intake: never Household members: children Housing: House Marital status: Single Current occupational status: unemployed Physical Exam Neuro: JEET COMA SCALE: document GCS findings [place] coma scale total score: 13 Course Vital Signs: Vital signs: Vital Signs Temperature 94.7 F L 01/22/22 08:37 Pulse Rate 69 01/22/22 08:30 Respiratory Rate 4 L 01/22/22 08:30 Blood Pressure 158/101 01/22/22 08:30 Pulse Oximetry 100 01/22/22 08:30 Oxygen Delivery Me thod 01/22/22 08:30 Oxygen Flow Rate 2 01/22/22 08:30 MDM - General Adult Medical Decision Making 36-year-old female who is a insulin-dependent diabetic presenting with significant hypoglycemia. She has D10 running. Currently blood pressure is 149/94 heart rate 68, saturations are 100% on room air. She has D10 running. Labs and CT are pending. Right lower lobe pneumonia as well as hypoxia glycemia and hypothermia. Patient has elevated creatinine talking to a cellulitis probably be A chronic issue but a year ago her creatinine function was normal with not had monitoring since then when getting records from [place] and [place] where she was seen earlier this year after she moved there for a time. Discussed with hospitalist will start Zosyn. She is currently on a dextrose drip and blood sugars are maintaining above 100. She is requiring 2 L by nasal cannula. Orders written for admission because of the need for glucose appropriate her in the ICU she will require close monitoring initially. Medical Records I reviewed the patient's medical records. Lab Data I reviewed the patient's lab results. : 01/22/22 05:46 01/22/22 05:46 Radiology Impressions Chest X-Ray 01/22/22 05:52
[2022-01-22 06:02] LABS: Basophils # 0.1 10^3/uL (0.0-0.1); Basophils % 0.8 %; Eosinophils # 0.1 10^3/uL (0.0-0.8); Eosinophils % 1.4 %; Hematocrit 29.6 % (37.0-47.0); Hemoglobin 9.2 g/dL (11.5-15.3); Lymphocytes # 1.7 10^3/uL (0.8-4.8); Lymphocytes % 20.1 %; Mean Corpuscular HGB Conc 31.1 g/dL (30.0-36.0); Mean Corpuscular Hemoglobin 25.9 pg (28.0-34.0); Mean Corpuscular Volume 83.4 fl (81-99); Monocytes # 0.5 10^3/uL (0.2-0.9); Monocytes % 5.8 %; Neutrophils # 5.96 10^3/uL (1.8-7.7); Neutrophils % 71.5 %; Nucleated Red Blood Cells % 0 %; Platelet Count 288 10^3/cmm (130-400); Red Blood Count 3.55 10^6/uL (4.1-5.3); Red Cell Distribution Width 16.1 % (12.1-15.1); White Blood Count 8.3 10^3/uL (4.0-10.0)
[2022-01-22] MEDS: sodium chloride 0.9% 1,000 ML 999 ML IV ×2 (06:03→08:16)
[2022-01-22 06:17] LABS: Alanine Aminotransferase 7 U/L (0-33); Albumin Level 2.4 g/dL (3.5-5.2); Alkaline Phosphatase 128 IU/L (35-105); Aspartate Amino Transferase 13 U/L (0-32); Blood Urea Nitrogen 33 mg/dL (6-20); Calcium 8.4 mg/dL (8.5-10.5); Carbon Dioxide 27 mmol/L (22-29); Chloride 110 mmol/L (98-107); Creatine Phosphokinase 69 U/L (26-192); Globulin 4.5 g/dL (1.3-4.6); Glomerular Filtration Rate 28.4 mL/min (90-130); Glucose 115 mg/dL (65-115); Lactate (Lactic Acid level) 1.4 mmol/L (0.5-2.2); Lipase 37 U/L (13-60); Magnesium 1.6 mg/dL (1.7-2.3); Osmolality Calculated 308 mOsm/kg (285-295); Phosphorus 3.3 mg/dL (2.5-4.5); Sodium 145 mmol/L (136-145); Total Bilirubin 0.2 mg/dL (0.15-1.2); Total Protein 6.9 g/dL (6.6-8.7)
[2022-01-22 06:19] LABS: ABG PCO2 47.7 mmHg (35-45); ABG PH Result 7.37 (7.35-7.45); Arterial Blood Gas Hematocrit 28.5 % (37-47); Base Excess ABG 1.5 mmol/L (-2.0-2.0); Blood Gas Allen Test Pos; Blood Gas Sample Site Radial, left; Blood Gas Sample Type Arterial; HCO3 ABG 27.2 mmol/L (22-26); PO2 ABG 50.3 mmHg (80.0-100.0)
[2022-01-22 07:01] LABS: Amphetamines Screen Urine Negative (Negative); Barbiturates Screen Urine Negative (Negative); Benzodiazepines Screen Urine Negative (Negative); Cocaine Screen Urine Negative (Negative); Opiate Screen Urine Negative (Negative); PCP Screen Urine Negative (Negative); THC Screen Urine Negative (Negative)
[2022-01-22 07:13] LABS: Add Urine Culture? No; Add Urine Microscopic? YES; Bacteria Urine TRACE /hpf; Bilirubin Urine Neg (Negative); Blood Urine 3+ (Negative); Glucose Urine UA Norm (Normal); Ketones Urine Negative (Negative); Leukocyte Esterase Urine Negative (Negative); Nitrate Urine Negative (Negative); Protein Urine 3+ (Negative); Specific Gravity, Urine 1.015 (1.005-1.030); Squamous Epithelial Cell Urine 0-4 /hpf (0-5); Urine Appearance Clear (CLEAR); Urine Color Colorless (Yellow); Urobilinogen Urine Norm (Negative); WBC Urine 0-4 /hpf (0-5); pH Urine 5 (5-7)
[2022-01-22] MEDS: sodium chloride 23.4% 8.5 MEQ in dextrose 10% 250 ML 30 MEQ IV (07:13)
[2022-01-22] MEDS: acetaminophen 500 mg Tablet 1000 MG PO (07:45)
[2022-01-22] MEDS: piperacillin-tazobactam 2.25 GM in sodium chloride 0.9% (plus) 50 ML IV (08:16)
[2022-01-22 08:38] LABS: Glucose Point of Care 101 mg/dL (70-110)
[2022-01-22 08:38] LABS: Glucose Point of Care 107 mg/dL (70-110)
[2022-01-22 08:38] LABS: Glucose Point of Care 105 mg/dL (70-110)
--- NOTE | 2022-01-22 08:48 | CT_ITS ---
WS: [id number] CT ABDOMEN PELVIS TECHNIQUE: Noncontrast CT of the abdomen and pelvis with coronal and sagittal reformatted images. CLINICAL INFORMATION: flank pain COMPARISON: CT January 28, 2021 DLP: 651.[address] scans at [facility] use at least one of these dose optimization techniques: automated e xposure control; mA and/or kV adjustment per patient size (includes targeted exams where dose is matc hed to clinical indication); or iterative reconstruction. FINDINGS: Diffuse body wall anasarca is new from January 28, 2021. Prior cholecystectomy. Bibasilar atelectasis. Tiny LEFT pleural effusion. Calcified granulomas RIGHT lower lobe. Normal GE junction. No obstructin g renal or ureteral calculi. Distention of the urinary bladder with air in the dome of the bladder. P elvic phleboliths. Mild bilateral ureterectasis likely due to bladder outlet obstruction or UTI. Norm al caliber abdominal aorta. Aortic calcification. Rectosigmoid constipation. No evidence of high-grade small or large bowel obstr uction. Bilateral inguinal lymphadenopathy is nonspecific but likely reactive.. Chronic bilateral par s defects L5-S1 with slight anterolisthesis. CT/CT kidney stone [id number] IMPRESSION: 1. Diffuse body wall anasarca is new from January 28, 2021. 2. No obstructing renal or ureteral calculi. Mild bilateral ureterectasis may be due to bladder outlet obstruction or UTI. 3. Marked urinary distention of the bladder with air-fluid level in the dome o f the bladder suspicious for cystitis in the absence of recent instrumentation. 4. Prior cholecystectomy. 5. Bilateral enlarged inguinal lymph nodes nonspecific but likely reactive. 6. Trace LEFT greater than RIGHT pleural fluid. Subsegmental atelectasis in th e lung bases. 7. Chronic bilateral pars defects L5-S1 with grade 1 anterolisthesis. Notified Shravan Jones DO at 01/22/2022 10:02 AM.
--- NOTE | 2022-01-22 08:51 | PM.HP ---
Providers/Chief Complaint Admitting Physician: Ruben Salvador Primary Care Provider: SUZANNE Dias Chief Complaint: hypoglycemia History of Present Illness Donita Aguilar is a 36 year old female currently incarcerated who presents to the emergency department with weakness, and low blood sugar. She reports she has been eating lately. Vomiting. Was recently hospitalized at [place] in the last several weeks with pneumonia for which she was on linezolid at another antibiotic. She reports she has completed or is near completion of this. She states that her renal function was an issue at [place], and on discharge she knows noted her blood sugars have been less than 100 usually. She states she has back on her Lantus at 30 units twice daily which she has been on for quite some time. She has some left side pain. No fever. Reports occasionally feels short of breath and has a cough.. In the last 3 weeks but is not sure. Does report she still has periods. In the emergency department was found to have a low oxygen level and was placed on 2 L of oxygen. Respiratory rate was low at that point, and she was found to be hypoglycemic and an glucose drip of D10 was initiated. Zosyn was started for possible pneumonia. Patient was hydrated as well. Hypothermia was present and she was placed on a Marii hugger. Per EMS report documented by the emergency department her initial sugar in the field was 39 and they have been called for possible seizure-like activity. She had also been reportedly confused. Medications/Allergies Home Medications Medication Instructions Recorded Confirmed Last Taken Type glucagon HCl 1 mg solution for 1 mg SUBCUT Q20M PRN hypoglycemia 08/22/20 01/22/22 Unknown Rx injection (Glucagon (HCl) #3 ea Emergency Kit) diphenhydramine HCl 25 mg tablet 25 mg PO BID 01/22/22 01/22/22 01/21/22 History (Benadryl Allergy) insulin aspart U-100 100 unit/mL See Rx Instructions .Route .COMPLEX 01/22/22 01/22/22 Unknown History (3 mL) subcutaneous pen (Novolog Flexpen U-100 Insulin aspart) insulin glargine 100 unit/mL (3 30 unit SUBCUT BID@0600,1800 01/22/22 01/22/22 Unknown History mL) subcutaneous pen (Lantus Solostar U-100 Insulin) linezolid 600 mg tablet (Zyvox) 600 mg PO Q12H 01/22/22 01/22/22 01/21/22 History Allergies Allergy/AdvReac Type Severity Reaction Status Date / Time acetaminophen AdvReac Mild ADR-Gastrointestinal Verified 01/22/22 08:26 Upset PFSH Acute PFSH: Medical History (Updated 01/22/22 @ 09:07 by Ruben Rust MD) Acute hyperglycemia Anxiety Arnold-Chiari malformation Chronic headache Complicated UTI (urinary tract infection) Cystitis Diabetic gastroparesis -continue Reglan Diabetic neuropathy associated with type 1 diabetes mellitus DKA (diabetic ketoacidoses) Elevated lactic acid level Esophagitis Exposure to severe acute respiratory syndrome coronavirus 2 (SARS-CoV-2) -COVID-19 negative (PCR) HTN (hypertension) Hyperglycemia Lymphadenitis Migraine headache Non-alcoholic fatty liver disease Pancreatitis PID (pelvic inflammatory disease) Pleural effusion 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 Pyelonephritis Recurrent UTI Respiratory failure Sepsis Type 1 diabetes mellitus Uncontrolled type 1 diabetes mellitus Ureterolithiasis Surgical History History of cholecystectomy History of endoscopy History of lung surgery -s/p LLL lobectomy secondary to cavitary pneumonia (2017) Family History Grandfather Diabetes Other Heart disease Hypertension Social History (Updated 01/22/22 @ 09:01 by Ruben Rust MD) Smoking and tobacco status: current every day smoker cigarettes Packs smoked per day: 0.5 Second hand smoke exposure: Yes Alcohol intake: never Substance/Drug Use: current Household members: children Housing: House Marital status: Single Current occupational status: unemployed Female Reproductive History: Date of last menstrual period: 11/23/20 Vitals/I&O/Wt Last Vital Signs Temp 94.7 F L 01/22/22 08:37 Pulse 69 01/22/22 08:30 Resp 4 L 01/22/22 08:30 BP 158/101 01/22/22 08:30 Pulse Ox 100 01/22/22 08:30 O2 Del Method 01/22/22 08:30 O2 Flow Rate 2 01/22/22 08:30 01/21/22 01/22/22 01/22/22 22:59 06:59 14:59 Intake Total 1000 / 1000 Balance 1000 / 1000 Weight last 48 hrs Weight 72.575 kg Physical Exam Narrative: White female, conversant, appropriate he does not appear short of breath currently on 2 L of oxygen and is not confused. Neurologic: Alert and oriented x3. No focal deficits HEENT: Atraumatic normocephalic. Pupils equally round. Oropharynx clear. Neck is supple no lymphadenopathy or thyromegaly Cardiovascular regular rate and rhythm. No murmur. Lungs clear bilaterally. No wheezes or crackles Abdomen is soft with positive bowel sounds. Slight tenderness left flank. No obvious organomegaly. exam is deferred Extremities no cyanosis clubbing or edema, cap refill brisk. Right second toe has been amputated. Skin no rash Data : 01/22/22 05:46 01/22/22 05:46 Other Labs: MCV 83, RDW 16 ABG demonstrates pH 7.37, PCO2 47, PO2 of 50 LFTs within normal limits with the exception of alk phos of 128. Magnesium 1.6 Lactate 1.4 Calcium 8.4 Albumin 2.4 Urinalysis 3+ blood with 5-10 red blood cells 0-4 whites Urine drug screen negative Chest x-ray question right lower lobe infiltrate. Postop changes noted left lung CT head pending Blood cultures drawn EKG demonstrates sinus rhythm, normal axis, small Q waves noted inferiorly unchanged from previous EKGs Micro: Microbiology 01/22/22 07:00 Blood Culture - Preliminary Blood SPECIMEN COLLECTED 01/22/22 06:55 Blood Culture - Preliminary Blood SPECIMEN COLLECTED A&P Assessment and plan (1) Hypoglycemia due to insulin: Hold insulin products currently. Glucose drip Wean off as tolerated Close follow-up of blood sugars every hour. Resuming long-acting insulin at much reduced dose when off glucose drip. I suspect she could have also become hypoglycemic secondary to current insulin regimen with her level of renal dysfunction. Stat CT head was also ordered by the emergency department for confusion. Currently confusion is resolved, and was most likely secondary to hypoglycemia. Status: Acute (2) Hypothermia: Likely secondary to hypoglycemia. Check TSH Actively warm. No evidence for adrenal insufficiency currently. She has been checked for this in the past. Status: Acute (3) Hypoxia: See below. Try to taper off oxygen as tolerated Status: Acute (4) Pneumonia: Concern of pneumonia, right lower lung. This is a concern secondary to hypoxia. Patient was recently treated for pneumonia at [place] with Levaquin and linezolid and I believe she has had a fairly extensive course. We will check this when records are received. It is also possible her hypoxia on arrival was secondary to her hypoglycemia, hypothermia, and inappropriate respiratory status with this presentation as her respiratory rate was decreased as well. We will see if she tapers off oxygen quickly, and any other concerns are noted. For now we will continue Zosyn secondary to her history of gastroparesis, obtain sputum culture. Blood cultures already been obtained. Status: Acute (5) Acute kidney injury: Concern of acute kidney injury. Apparently at recent hospitalization at [place] this was a concern as well. We will ask for records. Obtain CT renal protocol considering left flank pain, mild hematuria, and past history of ureterolithiasis. Hydrate Check renal function tomorrow Check CK, hepatitis panel as well Urine protein and creatinine. I suspect she could have nephrotic syndrome. Will need outpatient follow-up with nephrology. Status: Acute (6) Diabetes mellitus: Patient is currently labeled as type I diabetic. I believe this is somewhat in question. Patient herself is not sure. Previous diagnosis was type 2 diabetes, but was eventually changed over to insulin for control. She has had episodes of significant pancreatitis which could have given her insulin deficiency. At this point in time she is hypoglycemic on her current regimen. We will hold her long-acting insulin, provide glucose strips, and restart insulin at lower level when appropriate. As she was managing her own insulin in senior living, it is also potential that she could have taken a larger amount than prescribed. Patient denies this currently. Status: Acute (7) Anemia: Anemia present on admission. Doubt acute blood loss. Anemia panel ordered as well as stool Hemoccult. May be related to renal dysfunction, and even potentially nephrotic syndrome. As she is still having periods, but does not know when the last one was, we will also check a serum hCG, TSH. HIV will also be obtained considering drug use. Check hepatitis panel as well. Status: Acute (8) Drug abuse: Discharge planning will make sure resources are available Status: Acute (9) Tobacco dependence: Encourage abstinence Status: Acute Plan Magnesium Lilliam, supplement Multiple other medical problems as outlined in past medical history Full code Heparin for DVT prophylaxis Attestations Medical Necessity Statement*: Less than 2 midnight stay for evaluation and treatment of hypoglycemia, hypothermia, hypoxia, acute kidney injury. Although a multitude of medical problems exist all of them could be related to her hypoglycemia. Critical Care Time: The high probability of a clinically significant, sudden or life threatening deterioration of the patient's [pulmonary, endocrine, electrolyte] system(s) required my full and direct attention, intervention and personal management. The critical care time is as shown. 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
[2022-01-22 08:54] LABS: HCG, Serum Qual Negative (Negative)
--- NOTE | 2022-01-22 08:55 | PC.PHAR ---
PT VERIFIED MEDICATIONS-PT BROUGHT IN MED BOTTLE OF ZYVOX 600MG Q12H PT ALSO HAD PAPER FROM [facility] FOR LEVAQUIN 750MG ONE TAB Q48H #2 4D/S ON 01/16/22-PT STATES SHE DOESNT THINK THAT WAS BROUGHT WITH HER WHEN SHE WAS PICKED UP BY THE POLICE-[place] STATES THE PT HAD BROUGHT IN THE NOVOLOG FLEXPEN AND THE LANTUS SOLOSTAR -
[2022-01-22 09:04] LABS: Creatine Phosphokinase 71 U/L (26-192); Thyroid Stimulating Hormone 8.17 uIU/mL (0.27-4.20)
[2022-01-22 09:14] LABS: Urine Creatinine 30 mg/dL (28-217)
[2022-01-22 09:27] LABS: Ferritin 787 ng/mL (15-150); Iron 47 ug/dL (37-145); Percent Saturation 21.2 % (20-50); Total Iron Binding Capacity 221 mcg/dl; Unsaturated Iron Binding 174 ug/dL (112-347)
[2022-01-22 09:31] LABS: Urine Protein Random 218 mg/dL
[2022-01-22 09:33] LABS: HIV 1 & 2 Antibody Non-Reactive (Non-Reactiv); HIV 1 & 2 Antigen Non-Reactive (Non-Reactiv)
[2022-01-22 09:42] LABS: Folate Level 7.4 ng/mL (4.8-37.3)
[2022-01-22 09:43] LABS: Vitamin B12 312 pg/mL (232-1245)
[2022-01-22] MEDS: magnesium sulfate premix 2 GM/50 ML PIGGYBACK IV (09:43)
[2022-01-22 10:02] LABS: Hepatitis A Antibody IgM Non-Reactive (Nonreactive); Hepatitis B Core IgM Non-Reactive (Nonreactive); Hepatitis B Surface Antigen Non-Reactive (Nonreactive); Hepatitis C Virus Antibody Non-Reactive (Nonreactive)
[2022-01-22 10:21] LABS: Adenovirus Not Detected (NOT DETECT); Chlamydia Pneumoniae Not Detected (NOT DETECT); Coronavirus 229E,HKU1,NL63,OC4 Not Detected (NOT DETECT); Human Metapneumovirus Not Detected (NOT DETECT); Human Rhinovirus/Enterovirus Not Detected (NOT DETECT); Influenza A Not Detected (NOT DETECT); Influenza A H1 Not Detected (NOT DETECT); Influenza A H1-2009 Not Detected (NOT DETECT); Influenza A H3 Not Detected (NOT DETECT); Influenza B Not Detected (NOT DETECT); Mycoplasma Pneumoniae Not Detected (NOT DETECT); Parainfluenza Virus Type 1 Not Detected (NOT DETECT); Parainfluenza Virus Type 2 Not Detected (NOT DETECT); Parainfluenza Virus Type 3 Not Detected (NOT DETECT); Parainfluenza Virus Type 4 Not Detected (NOT DETECT); Respiratory Syncytial Virus A Not Detected (NOT DETECT); Respiratory Syncytial Virus B Not Detected (NOT DETECT); SARS-COV-2 Detected (NOT DETECT)
[2022-01-22 10:58] LABS: Bilirubin Urine Neg (Negative); Blood Urine 3+ (Negative); Glucose Urine UA Norm (Normal); Ketones Urine Negative (Negative); Nitrate Urine Negative (Negative); Protein Urine 2+ (Negative); Urine Appearance Clear (CLEAR); Urine Color Colorless (Yellow); Urobilinogen Urine Norm (Negative); pH Urine 5 (5-7)
[2022-01-22 10:59] LABS: Add Urine Microscopic? YES; Leukocyte Esterase Urine Negative (Negative)
[2022-01-22 11:01] LABS: Add Urine Culture? Yes; Bacteria Urine TRACE /hpf; Mucus Urine TRACE /hpf; Squamous Epithelial Cell Urine 0-4 /hpf (0-5); WBC Urine RARE /hpf (0-5)
[2022-01-22] MEDS: pantoprazole DR 40 mg Tablet PO (11:02)
[2022-01-22] MEDS: heparin 5,000 unit/mL INJ 1 mL 5000 UNIT SUBCUT ×2 (11:03→21:17)
[2022-01-22] MEDS: HYDROcodone-acetaminophen 5-325 mg Tablet 1 TAB PO ×3 (11:25→19:35)
[2022-01-22 11:40] LABS: Glucose Point of Care 91 mg/dL (70-110)
[2022-01-22 11:40] LABS: Glucose Point of Care 114 mg/dL (70-110)
[2022-01-22] MEDS: tamsulosin 0.4 mg Capsule PO (12:04)
[2022-01-22] MEDS: hyDRALAzine 20 mg/mL INJ 1 mL 10 MG IVP (12:04)
[2022-01-22 12:05] LABS: C Reactive Protein 4.4 mg/L (0.0-4.9)
[2022-01-22] MEDS: dexamethasone 10 mg/mL INJ 6 MG IVP (12:06)
[2022-01-22 12:18] LABS: Glucose Point of Care 103 mg/dL (70-110)
[2022-01-22 13:05] LABS: Estmated Average Glucose 326
[2022-01-22 13:14] LABS: T3 Free 2.1 PG/ML (2.0-4.4)
[2022-01-22 13:28] LABS: Glucose Point of Care 209 mg/dL (70-110)
[2022-01-22] MEDS: dextrose 5%-sod chloride 0.9% 1,000 ML 75 ML IV (13:36)
[2022-01-22 14:10] LABS: Glucose Point of Care 216 mg/dL (70-110)
[2022-01-22] MEDS: ondansetron 2 mg/ML SDV 2 mL 4 MG IVP (14:12)
[2022-01-22] MEDS: piperacillin-tazobactam 3.375 GM in sodium chloride 0.9% (plus) 50 ML IV ×2 (14:12→22:14)
[2022-01-22 15:08] LABS: Glucose Point of Care 227 mg/dL (70-110)
[2022-01-22] MEDS: sodium chloride 0.9% 1,000 ML 50 ML IV (15:29)
[2022-01-22 16:47] LABS: Glucose Point of Care 226 mg/dL (70-110)
[2022-01-22 17:19] LABS: Glucose Point of Care 281 mg/dL (70-110)
[2022-01-22 18:16] LABS: Glucose Point of Care 347 mg/dL (70-110)
--- NOTE | 2022-01-22 18:35 | PC.NURSE ---
Patient arrived in ICU at 1010. Vitals wihtin normal limts. ALert and oriented to person, place, time, and situation. Patient's bladder is distended and she is unable to urinate. Per Dr mcdaniels, CT shows distended bladder. REcieved orders and started Sanders catheter upon arrival in unit. 1200 mL of pale yellow urine voided.
--- NOTE | 2022-01-22 18:36 | PC.NURSE ---
SHift Summary: UNeventful shift. Patient rested in bed or was up to the bedside commode. BLood sugar tracked throughout the day. Near end of shift, patient bcame hyperglycemic and a sliding scale and long acting insulin was started. Patient was initially an inmate with a deputy escort, but has since been bonded out of custody. Patient is no longe rand inmate, not on any hold. Able to leave AMA if she wants. patient is aware of her rights.
[2022-01-22] MEDS: insulin lispro 100 unit/1 mL SUBCUT ×2 (19:12→21:15)
[2022-01-22 21:13] LABS: Glucose Point of Care 351 mg/dL (70-110)
[2022-01-22] MEDS: insulin glargine 100 units/1 mL 30 UNIT SUBCUT (21:15)
[2022-01-22 23:48] LABS: Glucose Point of Care 232 mg/dL (70-110)
[2022-01-23] VITALS (22 sets, daily range): BP systolic 129–170; BP diastolic 74–109; PULSE 76–92; RESP 0–20; TEMP 36.9–37.1; O2SAT 94–99
[2022-01-23] MEDS: HYDROcodone-acetaminophen 5-325 mg Tablet 1 TAB PO (00:20)
[2022-01-23] MEDS: ondansetron 2 mg/ML SDV 2 mL 4 MG IVP (01:34)
[2022-01-23 03:42] LABS: Glucose Point of Care 163 mg/dL (70-110)
[2022-01-23 04:54] LABS: Alanine Aminotransferase 9 U/L (0-33); Albumin Level 2.5 g/dL (3.5-5.2); Alkaline Phosphatase 107 IU/L (35-105); Anion Gap 14.7 (5-19); Aspartate Amino Transferase 13 U/L (0-32); Blood Urea Nitrogen 35 mg/dL (6-20); C Reactive Protein 3.6 mg/L (0.0-4.9); Calcium 7.4 mg/dL (8.5-10.5); Carbon Dioxide 22 mmol/L (22-29); Chloride 108 mmol/L (98-107); Globulin 3.6 g/dL (1.3-4.6); Glomerular Filtration Rate 26.8 mL/min (90-130); Glucose 121 mg/dL (65-115); Magnesium 1.8 mg/dL (1.7-2.3); Osmolality Calculated 299 mOsm/kg (285-295); Potassium 4.7 mmol/L (3.5-5.1); Sodium 140 mmol/L (136-145); Total Bilirubin 0.2 mg/dL (0.15-1.2); Total Protein 6.1 g/dL (6.6-8.7)
[2022-01-23] MEDS: piperacillin-tazobactam 3.375 GM in sodium chloride 0.9% (plus) 50 ML IV (06:10)
[2022-01-23 07:21] LABS: Basophils # 0.1 10^3/uL (0.0-0.1); Basophils % 0.5 %; Hematocrit 26.1 % (37.0-47.0); Hemoglobin 8.1 g/dL (11.5-15.3); Lymphocytes % 20.7 %; Mean Corpuscular Hemoglobin 26.6 pg (28.0-34.0); Mean Corpuscular Volume 85.6 fl (81-99); Mean Platelet Volume 9.7 fL (7.4-10.4); Monocytes # 0.6 10^3/uL (0.2-0.9); Monocytes % 5.9 %; Neutrophils # 7.15 10^3/uL (1.8-7.7); Neutrophils % 72.6 %; Nucleated Red Blood Cells % 0 %; Platelet Count 251 10^3/cmm (130-400); Red Blood Count 3.05 10^6/uL (4.1-5.3); Red Cell Distribution Width 16.7 % (12.1-15.1); White Blood Count 9.9 10^3/uL (4.0-10.0)
[2022-01-23 08:17] LABS: Glucose Point of Care 100 mg/dL (70-110)
[2022-01-23] MEDS: tamsulosin 0.4 mg Capsule PO (08:23)
[2022-01-23] MEDS: pantoprazole DR 40 mg Tablet PO (08:23)
[2022-01-23] MEDS: insulin glargine 100 units/1 mL 15 UNIT SUBCUT (08:23)
--- NOTE | 2022-01-23 09:11 | PM.DCS ---
Discharge Providers Date of Admission: 01/22/22 08:40 Date of Discharge: January 23, 2022 Attending Provider at Admission: Ruben Rust MD Attending Provider at Discharge: Ruben Rust MD Primary Care Provider: SUZANNE Dias Diagnoses at Discharge Discharge Diagnosis (1) Hypoglycemia due to insulin: Details from hospital stay: Unknown etiology. Possibly from taking increased dose of insulin, versus taking prescribed insulin dose with renal insufficiency. Lantus dose reduced to 15 units twice daily on discharge. Status: Acute (2) Hypothermia: Details from hospital stay: Resolved, likely from hypoglycemia Status: Acute (3) Hypoxia: Details from hospital stay: Resolved. Possibly from hypoglycemia. Patient also COVID-positive. Status: Acute (4) Pneumonia: Details from hospital stay: Patient recently treated for pneumonia at [facility]. With concern of aspiration will finish 5 days of Augmentin. Status: Acute (5) Acute kidney injury: Details from hospital stay: Patient's renal function has improved since her hospitalization at [facility] last week. Will need nephrology follow-up. Has significant proteinuria, and a few red blood cells. Cannot rule out nephrotic syndrome. Significant urinary retention was also noted in the hospital with 1 L in bladder on Sanders placement. Urine culture negative at discharge. Sanders will be left in at discharge, and follow-up with urology within 1 week. No ureteral obstruction was noted. Status: Acute (6) Diabetes mellitus: Details from hospital stay: Moderate sliding scale insulin, Lantus 15 units twice daily at discharge Status: Acute (7) Anemia: Details from hospital stay: Likely from renal dysfunction. Hemoccult negative. Will prescribe Protonix on discharge for GI prophylaxis. Also recently on linezolid. Status: Acute (8) Drug abuse: Status: Acute (9) Tobacco dependence: Status: Acute Reason for Visit Reason for Visit: hypoglycemia Hospital Course Hospital Course Patient presented with weakness, hypoglycemia, and [facility] Blood sugar in the field was in the 30s. She was treated with an IV infusion of glucose. She was ultimately found to be COVID-positive, but relative paucity of symptoms other than weakness. There was concern about possible aspiration right lower lobe infiltrate, although this was not confirmed on CT scan of her chest. She was found to have renal dysfunction with a creatinine approximately 2-2.1 during her hospital stay. This was ultimately found to be improved from 2.9, 5 days ago on discharged from [facility]. She was found to have urinary retention on a CT renal protocol, and placement of Sanders catheter drained over 1 L of urine. Urinary studies suggested significant proteinuria, perhaps nephrotic range. Anemia was also noted, iron B12 and folate studies were essentially unrevealing. Stool Hemoccult negative. Suspect this may be secondary to renal dysfunction. She had no complaints of back pain, sacral paresthesia, or difficulty ambulating. During her hospital stay she remained stable. After glucose infusion was completed she began to eat well, and this was ultimately discontinued and insulin started. Blood sugars were acceptable while in the hospital on a lower dose of insulin, 15 units of Lantus twice daily with moderate sliding scale. I discussed with her the risks and benefits of continued Sanders placement until follow-up with urology. She wished to continue Sanders catheter at this point. We discussed her positive COVID test, and need to isolate currently. She will return if she has any significant symptoms or shortness of breath. She required 2 L of oxygen in the ER but did not require significant oxygen and was on room air with excellent saturations during her entire hospital stay. Head CT was also done during her hospital stay which was negative. Attempted to get records from [facility] on at least 2 separate occasions, but unfortunately full records did not come. I was able to get her creatinine directly from the laboratory. She was instructed not to do drugs, given counseling material and resources, and also told not to smoke. Physical Exam Narrative: General exam no distress Neck is supple Cardiovascular regular rate and rhythm Lungs clear Abdomen is soft and positive bowel sounds Extremities trace edema bilaterally Skin no rash Urinary Catheter Management: Sanders: Cath Placed During This Visit: yes Reason for Continuing Indwelling Catheter: Accurate Measurement of Urinary Output in Critically Ill Patients Urinary Catheter Date of Insertion: 01/22/22 Urinary Catheter Time of Insertion: 11:00 Discharge Data Studies Completed and Pending Completed Studies During Hospitalization Category Date Time Status CT head wo con* [id number] Urgent Cat Scan 01/22/22 05:[address] kidney stone [id number] Stat Cat Scan 01/22/22 08:48 Completed XR chest 1V portable [id number] Urgent Exams 01/22/22 05:52 Completed Pending at discharge Category Date Time Status Blood Culture Stat Lab 01/22/22 07:00 Results Sputum Culture Routine Lab 01/22/22 09:54 Uncollected Urine Culture Routine Lab 01/22/22 10:12 Received Radiology Impressions Chest X-Ray 01/22/22 05:52 IMPRESSION: There are ground-glass perihilar opacities present the right hemithorax today that may represent developing right-sided pneumonitis or atelectasis. Head CT 01/22/22 05:52 IMPRESSION: 1. No evidence of intracranial hemorrhage or mass effect. 2. Normal florentino-white differentiation. 3. No acute intracranial findings. Abdomen/Pelvis CT 01/22/22 08:48 IMPRESSION: 1. Diffuse body wall anasarca is new from January 28, 2021. 2. No obstructing renal or ureteral calculi. Mild bilateral ureterectasis may be due to bladder outlet obstruction or UTI. 3. Marked urinary distention of the bladder with air-fluid level in the dome of the bladder suspicious for cystitis in the absence of recent instrumentation. 4. Prior cholecystectomy. 5. Bilateral enlarged inguinal lymph nodes nonspecific but likely reactive. 6. Trace LEFT greater than RIGHT pleural fluid. Subsegmental atelectasis in the lung bases. 7. Chronic bilateral pars defects L5-S1 with grade 1 anterolisthesis. Notified Shravan Jones DO at 01/22/2022 10:02 AM. Laboratory Results WBC 9.9 10^3/uL (4.0-10.0) 01/23/22 07:00 Corrected WBC Cancelled 01/23/22 04:14 RBC 3.05 10^6/uL (4.1-5.3) L 01/23/22 07:00 Hgb 8.1 g/dL (11.5-15.3) L 01/23/22 07:00 Hct 26.1 % (37.0-47.0) L 01/23/22 07:00 MCV 85.6 fl (81-99) 01/23/22 07:00 MCH 26.6 pg (28.0-34.0) L 01/23/22 07:00 MCHC 31.0 g/dL (30.0-36.0) 01/23/22 07:00 RDW 16.7 % (12.1-15.1) H 01/23/22 07:00 Plt Count 251 10^3/cmm (130-400) 01/23/22 07:00 MPV 9.7 fL (7.4-10.4) 01/23/22 07:00 Gran % Cancelled 01/23/22 04:14 Neut % (Auto) 72.6 % 01/23/22 07:00 Lymph % (Auto) 20.7 % 01/23/22 07:00 Mclennan % (Auto) 5.9 % 01/23/22 07:00 Eos % (Auto) 0.0 % 01/23/22 07:00 Baso % (Auto) 0.5 % 01/23/22 07:00 Neut # (Auto) 7.15 10^3/uL (1.8-7.7) 01/23/22 07:00 Lymph # (Auto) 2.0 10^3/uL (0.8-4.8) 01/23/22 07:00 Mclennan # (Auto) 0.6 10^3/uL (0.2-0.9) 01/23/22 07:00 Eos # (Auto) 0.0 10^3/uL (0.0-0.8) 01/23/22 07:00 Baso # (Auto) 0.1 10^3/uL (0.0-0.1) 01/23/22 07:00 Absolute Gran (auto) Cancelled 01/23/22 04:14 Nucleated RBC % (auto) 0 % 01/23/22 07:00 Nucleated RBCs # 0.0 /100WBC 01/23/22 07:00 Specimen Type Arterial 01/22/22 06:07 Sample Site Radial, left 01/22/22 06:07 ABG pH 7.37 (7.35-7.45) 01/22/22 06:07 ABG pCO2 47.7 mmHg (35-45) H 01/22/22 06:07 ABG pO2 50.3 mmHg (80.0-100.0) L 01/22/22 06:07 ABG HCO3 27.2 mmol/L (22-26) H 01/22/22 06:07 ABG Base Excess 1.5 mmol/L (-2.0-2.0) 01/22/22 06:07 Braulio Test Pos 01/22/22 06:07 Hematocrit 28.5 % (37-47) L 01/22/22 06:07 O2 Delivery Device None 01/22/22 06:07 Blast Furnace Supervisor ID Hensa 01/22/22 06:07 Sodium 140 mmol/L (136-145) 01/23/22 04:14 Potassium 4.7 mmol/L (3.5-5.1) 01/23/22 04:14 Chloride 108 mmol/L (98-107) H 01/23/22 04:14 Carbon Dioxide 22 mmol/L (22-29) 01/23/22 04:14 Anion Gap 14.7 (5-19) 01/23/22 04:14 BUN 35 mg/dL (6-20) H 01/23/22 04:14 Creatinine 2.1 mg/dL (0.5-0.9) H 01/23/22 04:14 GFR Calculation 26.8 mL/min (90-130) L 01/23/22 04:14 Glucose 121 mg/dL (65-115) H 01/23/22 04:14 POC Glucose 100 mg/dL (70-110) 01/23/22 08:01 Estimat Average Glucose 326 01/22/22 05:46 Hemoglobin A1c 13.0 % (4.0-6.0) H 01/22/22 05:46 Calculated Osmolality 299 mOsm/kg (285-295) H 01/23/22 04:14 Lactate 1.4 mmol/L (0.5-2.2) 01/22/22 05:46 Calcium 7.4 mg/dL (8.5-10.5) L 01/23/22 04:14 Phosphorus 3.3 mg/dL (2.5-4.5) 01/22/22 05:46 Magnesium 1.8 mg/dL (1.7-2.3) 01/23/22 04:14 Magnesium Cancelled 01/23/22 04:14 Iron 47 ug/dL (37-145) 01/22/22 05:46 TIBC 221 mcg/dl 01/22/22 05:46 % Saturation 21.2 % (20-50) 01/22/22 05:46 Unsat Iron Binding 174 ug/dL (112-347) 01/22/22 05:46 Ferritin 787 ng/mL (15-150) H 01/22/22 05:46 Total Bilirubin 0.2 mg/dL (0.15-1.2) 01/23/22 04:14 AST 13 U/L (0-32) 01/23/22 04:14 ALT 9 U/L (0-33) 01/23/22 04:14 Alkaline Phosphatase 107 IU/L (35-105) H 01/23/22 04:14 Creatine Kinase 69 U/L (26-192) 01/22/22 05:46 Creatine Kinase 71 U/L (26-192) 01/22/22 05:46 C-Reactive Protein 3.6 mg/L (0.0-4.9) 01/23/22 04:14 C-Reactive Protein Cancelled 01/23/22 04:14 Total Protein 6.1 g/dL (6.6-8.7) L 01/23/22 04:14 Albumin 2.5 g/dL (3.5-5.2) L 01/23/22 04:14 Globulin 3.6 g/dL (1.3-4.6) 01/23/22 04:14 Lipase 37 U/L (13-60) 01/22/22 05:46 Vitamin B12 312 pg/mL (232-1245) 01/22/22 05:46 Folate 7.4 ng/mL (4.8-37.3) 01/22/22 05:46 TSH 8.17 uIU/mL (0.27-4.20) H 01/22/22 05:46 Free T4 1.10 ng/dL (0.82-1.77) 01/22/22 05:46 Free T3 2.1 PG/ML (2.0-4.4) 01/22/22 05:46 HCG, Qual Negative (Negative) 01/22/22 05:46 Urine Color Colorless (Yellow) 01/22/22 10:12 Urine Appearance Clear (CLEAR) 01/22/22 10:12 Urine pH 5 (5-7) 01/22/22 10:12 Ur Specific [place] 1.010 (1.005-1.030) 01/22/22 10:12 Urine Protein 2+ (Negative) H 01/22/22 10:12 Urine Glucose (UA) Norm (Normal) 01/22/22 10:12 Urine Ketones Negative (Negative) 01/22/22 10:12 Urine Blood 3+ (Negative) H 01/22/22 10:12 Urine Nitrate Negative (Negative) 01/22/22 10:12 Urine Bilirubin Neg (Negative) 01/22/22 10:12 Urine Urobilinogen Norm mg/dL (Negative) 01/22/22 10:12 Ur Leukocyte Esterase Negative (Negative) 01/22/22 10:12 Urine RBC 10-15 /hpf (0-2) H 01/22/22 10:12 Urine WBC Rare /hpf (0-5) 01/22/22 10:12 Ur Squamous Epith Cells 0-4 /hpf (0-5) H 01/22/22 10:12 Amorphous Sediment Not Reportable 01/22/22 10:12 Urine Bacteria Trace /hpf (NONE) 01/22/22 10:12 Urine Mucus Trace /hpf 01/22/22 10:12 U Random Total Protein 218 mg/dL 01/22/22 05:46 Urine Creatinine 30 mg/dL (28-217) 01/22/22 05:46 Urine Opiates Screen Negative ng/mL (Negative) 01/22/22 06:24 Ur Barbiturates Screen Negative ng/mL (Negative) 01/22/22 06:24 Ur Phencyclidine Scrn Negative ng/mL (Negative) 01/22/22 06:24 Ur Amphetamines Screen Negative ng/mL (Negative) 01/22/22 06:24 U Benzodiazepines Scrn Negative ng/mL (Negative) 01/22/22 06:24 Urine Cocaine Screen Negative ng/mL (Negative) 01/22/22 06:24 U Marijuana (THC) Screen Negative ng/mL (Negative) 01/22/22 06:24 Coronavirus 229E (PCR) Not detected (NOT DETECT) 01/22/22 08:20 Hepatitis A IgM Ab Non-reactive (Nonreactive) 01/22/22 05:46 Hep Bs Antigen Non-reactive (Nonreactive) 01/22/22 05:46 Hep B Core IgM Ab Non-reactive (Nonreactive) 01/22/22 05:46 Hepatitis C Antibody Non-reactive (Nonreactive) 01/22/22 05:46 HIV 1&2 Ab & HIV 1 Ag Non-reactive (Non-Reactiv) 01/22/22 05:46 HIV 1&2 Antibody Non-reactive (Non-Reactiv) 01/22/22 05:46 SARS-CoV-2 (PCR) Detected (NOT DETECT) A 01/22/22 08:20 Vitals Last Vital Signs Temp 98.4 F 01/23/22 04:30 Pulse 80 01/23/22 06:00 Resp 0 L 01/23/22 06:00 BP 136/83 01/23/22 06:00 Pulse Ox 97 01/23/22 06:00 O2 Del Method 01/22/22 13:00 O2 Flow Rate 2 01/22/22 09:00 Discharge Plan Discharge Patient Disposition: Home Condition: Stable Prescriptions: New pantoprazole 40 mg Tablet,Delayed Release (Dr/Ec) 40 mg PO DAILY Qty: 30 0RF tamsulosin 0.4 mg Capsule 0.4 mg PO DAILY Qty: 30 0RF amoxicillin-pot clavulanate 875-125 mg tablet 1 tab PO BID Qty: 10 0RF Continued Glucagon (HCl) Emergency Kit 1 mg recon soln 1 mg SUBCUT Q20M PRN (Reason: hypoglycemia) Qty: 3 3RF Rx Instructions: until target blood sugar attained Benadryl Allergy 25 mg Tablet 25 mg PO BID Novolog Flexpen U-100 Insulin 100 unit/mL (3 mL) Insulin Pen See Rx Instructions .ROUTE .COMPLEX Rx Instructions: SLIDING SCALE subcutaneously TID Changed Lantus Solostar U-100 Insulin 100 unit/mL (3 mL) insulin pen 15 unit SUBCUT BID@0600,1800 Qty: 3 0RF Discontinued Zyvox 600 mg Tablet 600 mg PO Q12H Discharge Orders: Discharge Order (Routine); Ordered 01/23/22 Ordered By: Ruben Rust Referrals: Elizabeth Dougherty FNP [Primary Care Provider] - 4-7 days (CBC, BMP on follow up) Jimmy Rubio MD [Physician] - 1 week (Follow-up urinary retention, patient with Sanders placed in hospital) Discharge Diet: Regular Discharge Activity: Increase activity as tolerated Patient Instructions: Opioid Safety Activity Restrictions/Additional Instructions: Avoid medications that could affect renal function. No anti-inflammatories such as ibuprofen, Aleve, Motrin, naproxen, Naprosyn. Please arrange follow-up with nephrology in the next 7 to 10 days Please arrange follow-up with Dr. Rubio in 7 days for potential urinary catheter removal. Return for any concerns Isolate for 10 days secondary to COVID. Wear mask and home for visitor and your self's visit is critical Return for any significant shortness of breath or worsening Please provide patient with guidance for moderate sliding scale insulin. No nighttime dose. Only with meals. Discharge Attestations Time Spent in Discharge Care*: greater than 30 min Status at Discharge: Cognitive status at discharge: cognitively intact, Behavioral status at discharge: cooperative and independent in ADL's, Quality Metrics Clinical Quality Measures [ No reported AMI, CVA or VTE this stay] Coding Level of Care Code Acute Chg FW DC note Diagnoses Hypoglycemia due to insulin E16.0; T38.3X5A Hypothermia T68.XXXA Hypoxia R09.02 Pneumonia J18.9 Acute kidney injury N17.9 Diabetes mellitus E11.9 Anemia D64.9 Drug abuse F19.10 Tobacco dependence F17.200
--- NOTE | 2022-01-23 09:57 | PC.CHAP ---
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 [] Patient/Family/Request visit [] Outpatient visit [] Follow-up visit [] Physician referral [] Code/Alert [x] Routine visit [] Staff referral [] Actively dying [x] Patient sleeping [] Family support [] [] Out of room [] Palliative care [] [] Receiving care in room [] Pre-surgical visit [] Trauma [] Long length of stay [x] ICU visit [] Other: Relational/Emotional Strength [] Patient feels connected with others/family/visitors/staff [] Distress [] Loneliness/isolation [] Abandonment Spirituality of Patient [] Person of [place] [] Attends [employer] of their [place] [] Believes in Prayer [] Reads Bible or Hinduism materials [] There are Spiritual issues to be addressed Assistant Teacher Primary Interventions [x] Prayer [] Active listening [] Non-anxious presence [] Spiritual/emotional support [] Crisis/trauma care [] Spiritual counseling [] Bereavement support [] Provided bereavement packet [] Provided Bible/devotional materials [] Provided toy/stuffed animal, coloring book to patient or family member [] Provided Communion [] Anointing/[place] [] Salvation [x] Completed spiritual assessment [] Other: Impact on Illness or Injury [] Angry [] Fearful [] Anxious [] Often cries [] Exhaustion [] Unable to work [] Unable to attend uatsdin [] Unable to walk/stand [] Unable to read [] Unable to drive [] Unable to eat/drink [] Unable to sleep [] Unable to be with family [] Patient intubated [] Other: Summary Time spent with patient
[2022-01-23] MEDS: heparin 5,000 unit/mL INJ 1 mL 5000 UNIT SUBCUT (10:13)
[2022-01-23 12:19] LABS: Glucose Point of Care 107 mg/dL (70-110)
--- NOTE | 2022-01-23 14:22 | PC.NURSE ---
patient has been dishcarged. Discharged with crowder in place and a followup with Dr araujo. [facility] provided catheter care and emptying education to the patient. New prescriptions sent to pharmacy. new presciption education provided. Patient discharged with fiance. Signature form signed.
== END 2022-01-23 14:24 | disposition home or self-care (01) ==
LOC: ER 09:02 → ICU 09:21
PROVIDERS: Emergency Medicine; Admitting Provider Internal Medicine; Emergency Provider Family Medicine; PCP Nurse Practitioner Family; Visit Provider Internal Medicine
DX: U07.1 COVID-19 (principal); E11.649 Type 2 diabetes mellitus with hypoglycemia without coma; T38.3X5A Adverse effect of insulin and oral hypoglycemic [antidiabetic] drugs, initial encounter; R09.02 Hypoxemia; J18.9 Pneumonia, unspecified organism; N17.9 Acute kidney failure, unspecified; D64.9 Anemia, unspecified; F19.10 Other psychoactive substance abuse, uncomplicated; Z79.4 Long term (current) use of insulin; F17.210 Nicotine dependence, cigarettes, uncomplicated
CPT/HCPCS: 36415; 36416; 36600; 51702; 70450; 71045; 74176; 80053; 80074; 80306; 81001; 82274; 82550; 82570; 82607; 82728; 82746; 82803; 82962; 83036; 83540; 83550; 83605; 83690; 83735; 84100; 84156; 84439; 84443; 84481; 84703; 85025; 86140; 87040; 87086; 87635; 87806; 93005; 96361; 96365; 96367; 96372; 96375; 99285; G0378; J0360; J1100; J1644; J1815; J2405; J2543; J3475; J7030; J7799

== ENCOUNTER 2022-01-25 03:06 | Emergency (ER) | payer BC, MEDICAID, SELFPAY ==
[2022-01-25 03:11] VITALS: BP 135/88; PULSE 100; RESP 26; TEMP 36.5; O2SAT 98; BMI 25.4
[2022-01-25 03:33] LABS: Add Urine Microscopic? YES; Bilirubin Urine Neg (Negative); Blood Urine 3+ (Negative); Glucose Urine UA 2+ (Normal); Ketones Urine Negative (Negative); Leukocyte Esterase Urine Negative (Negative); Nitrate Urine Negative (Negative); Protein Urine 3+ (Negative); Urine Appearance Clear (CLEAR); Urine Color Colorless (Yellow); Urobilinogen Urine Norm (Negative); pH Urine 5 (5-7)
[2022-01-25 03:34] LABS: Add Urine Culture? Yes; Bacteria Urine TRACE /hpf; RBC Urine >100 /hpf (0-2); Squamous Epithelial Cell Urine 0-4 /hpf (0-5); WBC Urine 25-40 /hpf (0-5)
--- NOTE | 2022-01-25 03:46 | W.ED.ABDPA2 ---
HPI - Abdominal Pain General: Chief Complaint: Abdominal Pain Stated Complaint: low back pain Time Seen by Provider: 01/25/22 03:22 Source: patient Mode of arrival: ambulatory Limitations: no limitations History of Present Illness: 36-year-old female who was recently admitted and discharged 2 days ago for urinary retention along with proteinuria and abdominal pain. She had a Sanders placed due to the urinary retention Sanders has been draining but states she is continue to have worsening abdominal and flank pain. She had some nausea and vomiting states her pain is currently a 7 out of 10 denies any fever denies any diarrhea denies any worsening proving factors. Associated Symptoms: Denies chills, diarrhea, dysuria, fever(s), nausea and vomiting Related Data: Date of Last Menstrual Period: 11/23/20 Review of Systems Const: Denies: fever(s), chills, body aches or change in appetite Eyes: Denies: blurry vision or eye discomfort ENMT: Denies: throat pain or dental pain Card: Denies: chest pain Resp: Denies: dyspnea GI: Reports: abdominal pain; Denies: nausea, vomiting or diarrhea : Reports: flank pain; Denies: dysuria Musc: Denies: neck pain or back pain Skin/Breast: Denies: rash Neuro: Denies: headache(s) Psych: Denies: depression Ramiro/Lymph: Denies: easy bruising All/Imm: Denies: urticaria PFSH ED PFSH: Medical History Acute hyperglycemia Anxiety Arnold-Chiari malformation Chronic headache Complicated UTI (urinary tract infection) Cystitis Diabetic gastroparesis -continue Reglan Diabetic neuropathy associated with type 1 diabetes mellitus DKA (diabetic ketoacidoses) Elevated lactic acid level Esophagitis Exposure to severe acute respiratory syndrome coronavirus 2 (SARS-CoV-2) -COVID-19 negative (PCR) HTN (hypertension) Hyperglycemia Lymphadenitis Migraine headache Non-alcoholic fatty liver disease Pancreatitis PID (pelvic inflammatory disease) Pleural effusion 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 Pyelonephritis Recurrent UTI Respiratory failure Sepsis Type 1 diabetes mellitus Uncontrolled type 1 diabetes mellitus Ureterolithiasis Surgical History History of cholecystectomy History of endoscopy History of lung surgery -s/p LLL lobectomy secondary to cavitary pneumonia (2017) Family History Grandfather Diabetes Other Heart disease Hypertension Social History Smoking and tobacco status: current every day smoker cigarettes Packs smoked per day: 0.5 Second hand smoke exposure: Yes Alcohol intake: never Household members: children Housing: House Marital status: Single Current occupational status: unemployed Female Reproductive History: Date of last menstrual period: 11/23/20 Physical Exam Const: COMMON NORMALS: patient oriented x3 HENMT: COMMON NORMALS: normocephalic and atraumatic HEAD & SCALP: normocephalic and atraumatic Eye: COMMON NORMALS: Equal, round and reactive pupils present and EOMs intact bilaterally PUPIL: Yes Equal, round and reactive pupils present Neck/C-Spine: COMMON NORMALS: full ROM and supple Chest: COMMONS NORMALS: normal inspection of the chest and normal palpation of entire chest wall Resp: COMMON NORMALS: normal respiratory effort, No retractions, No use of accessory muscles and clear to auscultation bilaterally AUSCULTATION: clear to auscultation bilaterally Cardio: COMMON NORMALS: regular rate, regular rhythm and No murmurs present (Cardio) RATE: regular rate RHYTHM: regular rhythm GI: COMMON NORMALS: Normal to inspection, nondistended, normoactive bowel sounds present, Soft to palpation, non-tender and no masses PALPATION: Yes Soft to palpation Extremity: COMMON NORMALS: normal to inspection and full ROM Neuro: COMMON NORMALS: patient oriented x3, moves all extremities and no focal motor deficits Psych: COMMON NORMALS: mental status grossly normal, Normal thought process present and cooperative THOUGHT PROCESS: Normal thought process present Skin: COMMON NORMALS: no rashes or lesions noted and no wounds GENERAL SKIN EXAM: no rashes or lesions noted Course Vital Signs: Vital signs: Vital Signs Temperature 97.7 F 01/25/22 03:11 Pulse Rate 90 01/25/22 04:30 Respiratory Rate 18 01/25/22 04:30 Blood Pressure 143/88 01/25/22 04:30 Pulse Oximetry 94 01/25/22 04:30 Oxygen Delivery Me thod 01/25/22 04:30 MDM - Abdominal Pain Medical Decision Making Patient presents with abdominal pain is resolved here after meds blood work is at her baseline she has no acute abdomen had a recent CT as well she is stable for discharge she is to follow-up PCP and return if worsening. Lab Data : 01/25/22 03:52 01/25/22 03:52 Labs/Radiology: Laboratory Results WBC 12.1 10^3/uL (4.0-10.0) H 01/25/22 03:52 RBC 3.62 10^6/uL (4.1-5.3) L 01/25/22 03:52 Hgb 9.6 g/dL (11.5-15.3) L 01/25/22 03:52 Hct 32.0 % (37.0-47.0) L 01/25/22 03:52 MCV 88.4 fl (81-99) 01/25/22 03:52 MCH 26.5 pg (28.0-34.0) L 01/25/22 03:52 MCHC 30.0 g/dL (30.0-36.0) 01/25/22 03:52 RDW 17.3 % (12.1-15.1) H 01/25/22 03:52 Plt Count 316 10^3/cmm (130-400) 01/25/22 03:52 MPV 9.2 fL (7.4-10.4) 01/25/22 03:52 Neut % (Auto) 68.8 % 01/25/22 03:52 Lymph % (Auto) 20.5 % 01/25/22 03:52 Jay % (Auto) 6.8 % 01/25/22 03:52 Eos % (Auto) 2.7 % 01/25/22 03:52 Baso % (Auto) 0.9 % 01/25/22 03:52 Neut # (Auto) 8.30 10^3/uL (1.8-7.7) H 01/25/22 03:52 Lymph # (Auto) 2.5 10^3/uL (0.8-4.8) 01/25/22 03:52 Jay # (Auto) 0.8 10^3/uL (0.2-0.9) 01/25/22 03:52 Eos # (Auto) 0.3 10^3/uL (0.0-0.8) 01/25/22 03:52 Baso # (Auto) 0.1 10^3/uL (0.0-0.1) 01/25/22 03:52 Nucleated RBC % (auto) 0 % 01/25/22 03:52 Nucleated RBCs # 0.0 /100WBC 01/25/22 03:52 Sodium 144 mmol/L (136-145) 01/25/22 03:52 Potassium 4.5 mmol/L (3.5-5.1) 01/25/22 03:52 Chloride 112 mmol/L (98-107) H 01/25/22 03:52 Carbon Dioxide 21 mmol/L (22-29) L 01/25/22 03:52 Anion Gap 15.5 (5-19) 01/25/22 03:52 BUN 40 mg/dL (6-20) H 01/25/22 03:52 Creatinine 2.4 mg/dL (0.5-0.9) H 01/25/22 03:52 GFR Calculation 23.0 mL/min (90-130) L 01/25/22 03:52 Glucose 246 mg/dL (65-115) H 01/25/22 03:52 POC Glucose 237 mg/dL (70-110) H 01/25/22 04:19 Calculated Osmolality 316 mOsm/kg (285-295) H 01/25/22 03:52 Calcium 8.6 mg/dL (8.5-10.5) 01/25/22 03:52 Total Bilirubin 0.2 mg/dL (0.15-1.2) 01/25/22 03:52 AST 28 U/L (0-32) 01/25/22 03:52 ALT 21 U/L (0-33) 01/25/22 03:52 Alkaline Phosphatase 139 IU/L (35-105) H 01/25/22 03:52 Total Protein 7.5 g/dL (6.6-8.7) 01/25/22 03:52 Albumin 2.8 g/dL (3.5-5.2) L 01/25/22 03:52 Globulin 4.7 g/dL (1.3-4.6) H 01/25/22 03:52 Lipase 91 U/L (13-60) H 01/25/22 03:52 HCG, Qual Negative (Negative) 01/25/22 03:52 Urine Color Colorless (Yellow) 01/25/22 03:17 Urine Appearance Clear (CLEAR) 01/25/22 03:17 Urine pH 5 (5-7) 01/25/22 03:17 Ur Specific Susan 1.020 (1.005-1.030) 01/25/22 03:17 Urine Protein 3+ (Negative) H 01/25/22 03:17 Urine Glucose (UA) 2+ (Normal) H 01/25/22 03:17 Urine Ketones Negative (Negative) 01/25/22 03:17 Urine Blood 3+ (Negative) H 01/25/22 03:17 Urine Nitrate Negative (Negative) 01/25/22 03:17 Urine Bilirubin Neg (Negative) 01/25/22 03:17 Urine Urobilinogen Norm mg/dL (Negative) 01/25/22 03:17 Ur Leukocyte Esterase Negative (Negative) 01/25/22 03:17 Urine RBC >100 /hpf (0-2) H 01/25/22 03:17 Urine WBC 25-40 /hpf (0-5) H 01/25/22 03:17 Ur Squamous Epith Cells 0-4 /hpf (0-5) H 01/25/22 03:17 Amorphous Sediment Not Reportable 01/25/22 03:17 Urine Bacteria Trace /hpf (NONE) 01/25/22 03:17 Discharge Plan Discharge Patient Disposition: Home Clinical Impression: Abdominal pain Qualifiers: Abdominal location: generalized Qualified Code(s): R10.84 - Generalized abdominal pain Condition: Stable Prescriptions: New hydrocodone-acetaminophen 5-325 mg tablet 1 tab PO Q6H PRN (Reason: pain) Qty: 14 0RF ondansetron 4 mg tablet,disintegrating 4 mg PO Q6H PRN (Reason: nausea and vomiting) Qty: 14 0RF No Action Glucagon (HCl) Emergency Kit 1 mg recon soln 1 mg SUBCUT Q20M PRN (Reason: hypoglycemia) Qty: 3 3RF Rx Instructions: until target blood sugar attained Benadryl Allergy 25 mg Tablet 25 mg PO BID Novolog Flexpen U-100 Insulin 100 unit/mL (3 mL) Insulin Pen See Rx Instructions .ROUTE .COMPLEX Rx Instructions: SLIDING SCALE subcutaneously TID tamsulosin 0.4 mg Capsule 0.4 mg PO DAILY Qty: 30 0RF pantoprazole 40 mg Tablet,Delayed Release (Dr/Ec) 40 mg PO DAILY Qty: 30 0RF amoxicillin-pot clavulanate 875-125 mg tablet 1 tab PO BID Qty: 10 0RF Lantus Solostar U-100 Insulin 100 unit/mL (3 mL) insulin pen 15 unit SUBCUT BID@0600,1800 Qty: 3 0RF Discharge Orders: Discharge ED (Routine); Ordered 01/25/22 Ordered By: Ronny Ayala Referrals: Elizabeth Dougherty FNP [Primary Care Provider] - Jimmy Rubio MD [Physician] - 1-3 days Discharge Diet: Advance as tolerated Discharge Activity: Resume usual activity Patient Instructions: Abdominal Pain (ED) Coding Level of Care Code ED Adult Basic Education Teacher for Chg Fwd Exam Comprehensive
[2022-01-25 03:48] VITALS: BP 144/100; PULSE 96; RESP 18; O2SAT 96
[2022-01-25 03:56] LABS: Basophils # 0.1 10^3/uL (0.0-0.1); Basophils % 0.9 %; Eosinophils # 0.3 10^3/uL (0.0-0.8); Eosinophils % 2.7 %; Hemoglobin 9.6 g/dL (11.5-15.3); Lymphocytes # 2.5 10^3/uL (0.8-4.8); Lymphocytes % 20.5 %; Mean Corpuscular Hemoglobin 26.5 pg (28.0-34.0); Mean Corpuscular Volume 88.4 fl (81-99); Mean Platelet Volume 9.2 fL (7.4-10.4); Monocytes # 0.8 10^3/uL (0.2-0.9); Monocytes % 6.8 %; Neutrophils % 68.8 %; Nucleated Red Blood Cells % 0 %; Platelet Count 316 10^3/cmm (130-400); Red Blood Count 3.62 10^6/uL (4.1-5.3); Red Cell Distribution Width 17.3 % (12.1-15.1); White Blood Count 12.1 10^3/uL (4.0-10.0)
[2022-01-25 04:17] LABS: Alanine Aminotransferase 21 U/L (0-33); Albumin Level 2.8 g/dL (3.5-5.2); Alkaline Phosphatase 139 IU/L (35-105); Anion Gap 15.5 (5-19); Aspartate Amino Transferase 28 U/L (0-32); Blood Urea Nitrogen 40 mg/dL (6-20); Calcium 8.6 mg/dL (8.5-10.5); Carbon Dioxide 21 mmol/L (22-29); Chloride 112 mmol/L (98-107); Globulin 4.7 g/dL (1.3-4.6); Glucose 246 mg/dL (65-115); HCG, Serum Qual Negative (Negative); Lipase 91 U/L (13-60); Osmolality Calculated 316 mOsm/kg (285-295); Potassium 4.5 mmol/L (3.5-5.1); Sodium 144 mmol/L (136-145); Total Bilirubin 0.2 mg/dL (0.15-1.2); Total Protein 7.5 g/dL (6.6-8.7)
[2022-01-25 04:18] VITALS: RESP 20
[2022-01-25] MEDS: metoclopramide 5 mg/mL SDV 2 mL 10 MG IVP (04:18)
[2022-01-25] MEDS: morphine 4 mg/mL SDV 1 mL IVP (04:18)
[2022-01-25] MEDS: diphenhydrAMINE 50 mg/mL SDV 1mL IVP (04:18)
[2022-01-25 04:24] LABS: Glucose Point of Care 237 mg/dL (70-110)
[2022-01-25 04:30] VITALS: BP 143/88; PULSE 90; RESP 18; O2SAT 94
[2022-01-25 05:24] VITALS: BP 133/88; PULSE 95; RESP 16; O2SAT 95
--- NOTE | 2022-01-26 11:54 | DCPLANNER ---
Addendum entered by Arlette Mendiola 02/13/22 13:44: Patient had a follow up appointment scheduled with urology - appointment was cancelled Addendum entered by Arlette Mendiola 02/01/22 15:15: Patient has a follow up appointment scheduled for Saturday, February 12, 2022 at 10:00 with Anne Beltre at urology. Clinic will call patient with appointment information. Original Note: manager inventory management had message to schedule a follow up appointment for patient with ortho. manager inventory management sent patients information to the front office staff at urology. Patients information will be printed and reviewed. Clinic will call patient with appointment information.
== END 2022-01-25 05:28 | disposition home or self-care (01) ==
PROVIDERS: Emergency Provider Emergency Medicine; PCP Nurse Practitioner Family
DX: R10.84 Generalized abdominal pain (principal); Z79.4 Long term (current) use of insulin; E10.9 Type 1 diabetes mellitus without complications; Z87.440 Personal history of urinary (tract) infections; F17.210 Nicotine dependence, cigarettes, uncomplicated
CPT/HCPCS: 36416; 80053; 81001; 82962; 83690; 84703; 85025; 87086; 96374; 96375; 99284; J1200; J2270; J2765

== ENCOUNTER 2022-01-25 13:26 | Inpatient (IN) | payer BC, SELFPAY ==
[2022-01-25] VITALS (26 sets, daily range): BP systolic 129–161; BP diastolic 92–109; PULSE 79–108; RESP 13–38; TEMP 36.6–37.1; O2SAT 95–100; BMI 29.2
--- NOTE | 2022-01-25 13:38 | XR_ITS ---
WS: [id number] Portable AP upright chest, 01/25/2022 Clinical Data: dyspnea/cough Comparison: Portable chest, 01/22/2022. Findings: Bilateral patchy opacities have developed throughout the lungs which may represent worsenin g pneumonia or pulmonary vascular congestion. The diaphragms are flattened. The heart is at the upper limits of normal. No pneumothorax is seen. There are no nodules or masses. There may be small bilate ral effusions. Monitor leads are on the chest wall. XR/XR chest 1V portable [id number] Impression: 1. Development of bilateral patchy opacities throughout both lungs which may re present pneumonia or pulmonary vascular congestion. 2. Cardiomegaly and small effusions which can be seen with congestive heart karin lure.
--- NOTE | 2022-01-25 13:46 | W.ED.SOB ---
HPI - SOB/Dyspnea General: Chief Complaint: COVID symptoms Stated Complaint: CP/SOB Time Seen by Provider: 01/25/22 13:37 Source: patient Mode of arrival: EMS History of Present Illness: HPI Narrative: 36-year-old female presents emergency room via air VAC. She was here few days ago and admitted she had to being discharged same day with hyperglycemia was corrected. Symptoms are gotten much better this time she returns short of breath with O2 sat of 80% in the field. She is on a nonrebreather 15 L/min with O2 sat now 100%. Before she was discharged earlier this week she was tested for COVID and came back positive. She is recently also at [facility] within the last 10 to 14 days at that time according to records she tested positive for E. coli sepsis she was discharged home on Levaquin and linezolid. She finished a little Levaquin but is still supposed to be taking linezolid. She has a history of IV drug use. There is also question of some lesions in her left lung. Dr. Beebe seen earlier this week and reviewing the chart with him today we are concerned about the possibility of her having septic emboli with necrotic areas in the lung. She did get worked up for TB while at [place] as well which was negative. Today she complains of being short of breath and is requiring significant oxygen supplementation she also complaining of a lot of generalized aching pain. She did have an episode of diarrhea while in the exam room was not mucousy but very very loose. He was seen earlier this morning but did not have any shortness of breath at that time was discharged home that note was reviewed as well. MD elicited complaint: shortness of breath and cough Pertinent past history: diabetes Onset (ago): hour(s) Context: recent illness Timing: constant Exacerbating factors: lying flat, exertion and coughing Relieving factors: oxygen and upright position Associated symptoms: Reports abdominal pain, chest congestion, chest pain, cough, diaphoresis, extremity pain, myalgias, nausea, orthopnea and sense of impending doom; Deny dizziness, fever(s), hemoptysis, lightheadedness, palpitations, paresthesias, polydipsia, polyuria, rash, syncope or vomiting Treatment prior to arrival: oxygen Review of Systems Const: Reports: diaphoresis; Denies: fever(s), chills, fatigue or malaise Card: Reports: chest pain and orthopnea; Denies: palpitations, swelling of feet/ankles, lightheadedness or syncope Resp: Reports: dyspnea, non-productive cough, wheezing and chest congestion; Denies: productive cough or hemoptysis GI: Reports: abdominal pain and nausea; Denies: vomiting : Denies: flank pain, difficulty voiding, dysuria, urinary frequency or urinary urgency Musc: Reports: extremity pain Neuro: Denies: dizziness Endo: Denies: polyuria or polydipsia PFSH ED PFSH: Medical History Acute hyperglycemia Anxiety Arnold-Chiari malformation Chronic headache Complicated UTI (urinary tract infection) Cystitis Diabetic gastroparesis -continue Reglan Diabetic neuropathy associated with type 1 diabetes mellitus DKA (diabetic ketoacidoses) Elevated lactic acid level Esophagitis Exposure to severe acute respiratory syndrome coronavirus 2 (SARS-CoV-2) -COVID-19 negative (PCR) HTN (hypertension) Hyperglycemia Lymphadenitis Migraine headache Non-alcoholic fatty liver disease Pancreatitis PID (pelvic inflammatory disease) Pleural effusion 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 Pyelonephritis Recurrent UTI Respiratory failure Sepsis Type 1 diabetes mellitus Uncontrolled type 1 diabetes mellitus Ureterolithiasis Surgical History History of cholecystectomy History of endoscopy History of lung surgery -s/p LLL lobectomy secondary to cavitary pneumonia (2017) Family History Grandfather Diabetes Other Heart disease Hypertension Social History Smoking and tobacco status: current every day smoker cigarettes Packs smoked per day: 0.5 Second hand smoke exposure: Yes Alcohol intake: never Household members: children Housing: House Marital status: Single Current occupational status: unemployed Female Reproductive History: Date of last menstrual period: 11/23/20 Physical Exam Const: COMMON NORMALS: no acute distress GENERAL APPEARANCE: cooperative and comfortable ORIENTATION/CONSCIOUSNESS: Yes awake, Yes oriented to person, Yes oriented to place and Yes oriented to time HENMT: COMMON NORMALS: normocephalic, atraumatic and hearing grossly normal bilaterally HEAD & SCALP: normocephalic and atraumatic Resp: EFFORT & INSPECTION: No able to speak in complete sentences, Yes abnormal respiratory pattern, Yes tachypneic, Yes respiratory distress and Yes uses accessory muscles AUSCULTATION: rhonchi and wheezes Cardio: COMMON NORMALS: regular rhythm RATE: tachycardic RHYTHM: regular rhythm GI: COMMON NORMALS: Soft to palpation and No hepatosplenomegaly present AUSCULTATION: Yes normoactive bowel sounds PALPATION: Yes Soft to palpation, No Tenderness to palpation present (GI), No Guarding due to palpation present (GI) and Yes No hepatosplenomegaly present Extremity: COMMON NORMALS: normal to inspection, capillary refill normal, no clubbing, cyanosis or edema, no calf tenderness and no pedal edema Neuro: SENSORIUM/ORIENTATION: Yes oriented to person, Yes oriented to place and Yes oriented to time Skin: COMMON NORMALS: no rashes or lesions noted GENERAL SKIN EXAM: no rashes or lesions noted Course Vital Signs: Vital signs: Vital Signs Temperature 97.9 F 01/25/22 13:36 Pulse Rate 91 01/25/22 17:00 Respiratory Rate 18 01/25/22 16:00 Blood Pressure 143/100 01/25/22 17:00 Pulse Oximetry 100 01/25/22 17:00 Oxygen Delivery Me thod 01/25/22 16:00 Oxygen Flow Rate 15 01/25/22 16:00 MDM - SOB/Dyspnea Medical Decision Making Patient has a metabolic acidosis likely secondary to her diarrhea. Although interestingly she does not have a significant anion gap. She has been on BiPAP we are repeating her ABGs. Suspect this is also significantly complicated by her COVID. There is also concern about sepsis as she grew out E. coli previously on blood cultures when she was in [place] based on records were gotten from request earlier this week when she was admitted. She had acute kidney injury at that time as well and she was placed on linezolid. Discussed all this with Dr. Che. Orders written. Patient to be admitted to the ICU Medical Records I reviewed the patient's medical records. Lab Data I reviewed the patient's lab results. : 01/25/22 14:05 01/25/22 14:05 Labs/Radiology: Radiology Impressions Chest X-Ray 01/25/22 13:38 Impression: 1. Development of bilateral patchy opacities throughout both lungs which may represent pneumonia or pulmonary vascular congestion. 2. Cardiomegaly and small effusions which can be seen with congestive heart failure. Laboratory Results WBC 12.8 10^3/uL (4.0-10.0) H 01/25/22 14:05 RBC 3.23 10^6/uL (4.1-5.3) L 01/25/22 14:05 Hgb 8.8 g/dL (11.5-15.3) L 01/25/22 14:05 Hct 30.6 % (37.0-47.0) L 01/25/22 14:05 MCV 94.7 fl (81-99) D 01/25/22 14:05 MCH 27.2 pg (28.0-34.0) L 01/25/22 14:05 MCHC 28.8 g/dL (30.0-36.0) L 01/25/22 14:05 RDW 17.2 % (12.1-15.1) H 01/25/22 14:05 Plt Count 257 10^3/cmm (130-400) 01/25/22 14:05 MPV 9.4 fL (7.4-10.4) 01/25/22 14:05 Neut % (Auto) 79.2 % 01/25/22 14:05 Lymph % (Auto) 12.7 % 01/25/22 14:05 [place] % (Auto) 5.6 % 01/25/22 14:05 Eos % (Auto) 1.3 % 01/25/22 14:05 Baso % (Auto) 0.7 % 01/25/22 14:05 Neut # (Auto) 10.10 10^3/uL (1.8-7.7) H 01/25/22 14:05 Lymph # (Auto) 1.6 10^3/uL (0.8-4.8) 01/25/22 14:05 [place] # (Auto) 0.7 10^3/uL (0.2-0.9) 01/25/22 14:05 Eos # (Auto) 0.2 10^3/uL (0.0-0.8) 01/25/22 14:05 Baso # (Auto) 0.1 10^3/uL (0.0-0.1) 01/25/22 14:05 Nucleated RBC % (auto) 0 % 01/25/22 14:05 Nucleated RBCs # 0.0 /100WBC 01/25/22 14:05 D-Dimer 1.88 ug/mIFEU (0-0.59) H 01/25/22 14:05 Specimen Type Arterial 01/25/22 14:02 Sample Site Brachial, right 01/25/22 14:02 ABG pH 7.22 (7.35-7.45) L 01/25/22 14:02 ABG pCO2 47.8 mmHg (35-45) H 01/25/22 14:02 ABG pO2 244.0 mmHg (80.0-100.0) H 01/25/22 14:02 ABG HCO3 19.7 mmol/L (22-26) L 01/25/22 14:02 ABG O2 Saturation > 100.0 01/25/22 14:02 ABG Base Excess -7.6 mmol/L (-2.0-2.0) L 01/25/22 14:02 Braulio Test N/a 01/25/22 14:02 Hematocrit 26.6 % (37-47) L 01/25/22 14:02 Hgb O2 Saturation 98.3 % (95-100) 01/25/22 14:02 Carboxyhemoglobin 1.7 %THgb (0.4-20.1) 01/25/22 14:02 Methemoglobin 0.6 % (0.4-1.5) 01/25/22 14:02 Total Hemoglobin 8.7 g/dL (12-16) L 01/25/22 14:02 Sodium 141.0 mmol/L (131-143) 01/25/22 14:02 Potassium 4.9 mmol/L (3.5-5.0) 01/25/22 14:02 Glucose 417.0 mg/dL (70-115) H 01/25/22 14:02 Ionized Calcium 1.2 mmol/L (1.1-1.4) 01/25/22 14:02 O2 Delivery Device Nrb 01/25/22 14:02 O2 Liters/Min 15.0 % 01/25/22 14:02 Information Systems Operator ID Hinja 01/25/22 14:02 Sodium 137 mmol/L (136-145) 01/25/22 14:05 Potassium 4.8 mmol/L (3.5-5.1) 01/25/22 14:05 Chloride 107 mmol/L (98-107) 01/25/22 14:05 Carbon Dioxide 20 mmol/L (22-29) L 01/25/22 14:05 Anion Gap 14.8 (5-19) 01/25/22 14:05 BUN 41 mg/dL (6-20) H 01/25/22 14:05 Creatinine 2.2 mg/dL (0.5-0.9) H 01/25/22 14:05 GFR Calculation 25.4 mL/min (90-130) L 01/25/22 14:05 Glucose 397 mg/dL (65-115) H 01/25/22 14:05 Calculated Osmolality 311 mOsm/kg (285-295) H 01/25/22 14:05 Lactic Acid 1.3 mmol/L (0.5-2.2) 01/25/22 14:05 Calcium 8.0 mg/dL (8.5-10.5) L 01/25/22 14:05 Magnesium 1.5 mg/dL (1.7-2.3) L 01/25/22 14:05 Total Bilirubin 0.2 mg/dL (0.15-1.2) 01/25/22 14:05 AST 68 U/L (0-32) H 01/25/22 14:05 ALT 50 U/L (0-33) H 01/25/22 14:05 Alkaline Phosphatase 195 IU/L (35-105) H 01/25/22 14:05 Total Protein 6.7 g/dL (6.6-8.7) 01/25/22 14:05 Albumin 2.5 g/dL (3.5-5.2) L 01/25/22 14:05 Globulin 4.2 g/dL (1.3-4.6) 01/25/22 14:05 Lipase 67 U/L (13-60) H 01/25/22 14:05 Procalcitonin 0.13 ng/mL (0-0.5) 01/25/22 14:05 Serum Ketones Negative (Negative) 01/25/22 14:05 Discharge Plan Discharge Patient Disposition: Admitted As Inpatient Clinical Impression: COVID-19, Diabetes mellitus, Anemia, Drug abuse, Metabolic acidosis Condition: Stable Coding Level of Care Code ED Progressive Care Manager for Reji Chandler
[2022-01-25 14:01] LABS: ABG PCO2 47.8 mmHg (35-45); ABG PH Result 7.22 (7.35-7.45); Arterial Blood Gas Hematocrit 26.6 % (37-47); Base Excess ABG -7.6 mmol/L (-2.0-2.0); Blood Gas Sample Type Arterial; Carboxyhemoglobin 1.7 %THgb (0.4-20.1); HCO3 ABG 19.7 mmol/L (22-26); HGB O2 Sat 98.3 % (95-100); Ionized Calcium Level - ABG 1.2 mmol/L (1.1-1.4); Methemoglobin 0.6 % (0.4-1.5); Oxygen Saturation ABG > 100.0; Potassium Level - ABG 4.9 mmol/L (3.5-5.0); Total Hemoglobin 8.7 g/dL (12-16)
[2022-01-25 14:03] LABS: Blood Gas Sample Site Brachial, right; Oxygen Device NRB
[2022-01-25 14:19] LABS: Basophils # 0.1 10^3/uL (0.0-0.1); Basophils % 0.7 %; Eosinophils # 0.2 10^3/uL (0.0-0.8); Eosinophils % 1.3 %; Hematocrit 30.6 % (37.0-47.0); Hemoglobin 8.8 g/dL (11.5-15.3); Lymphocytes # 1.6 10^3/uL (0.8-4.8); Lymphocytes % 12.7 %; Mean Corpuscular HGB Conc 28.8 g/dL (30.0-36.0); Mean Corpuscular Hemoglobin 27.2 pg (28.0-34.0); Mean Corpuscular Volume 94.7 fl (81-99); Mean Platelet Volume 9.4 fL (7.4-10.4); Monocytes # 0.7 10^3/uL (0.2-0.9); Monocytes % 5.6 %; Neutrophils % 79.2 %; Nucleated Red Blood Cells % 0 %; Platelet Count 257 10^3/cmm (130-400); Red Blood Count 3.23 10^6/uL (4.1-5.3); Red Cell Distribution Width 17.2 % (12.1-15.1); White Blood Count 12.8 10^3/uL (4.0-10.0)
--- NOTE | 2022-01-25 14:20 | ECG_ITS ---
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 Measurements Intervals [place] Rate: 99 P: 76 RI: 146 QRS: 82 QRSD: 89 T: 66 QT: 339 QTc: 435 Interpretive Statements SINUS RHYTHM POSSIBLE ANTERIOR MYOCARDIAL INFARCTION , PROBABLY OLD [30 ms Q WAVE IN V3/V4, OR R < 0.2 mV IN V4] Compared to ECG 01/22/2022 05:37:44 No significant changes Electronically Signed On 01-25-2022 14:25:27 CDT by Travis Gallegos M.D. [id number]
[2022-01-25 14:41] LABS: Ketone (Acetest) Serum Negative (Negative)
[2022-01-25 14:42] LABS: Alanine Aminotransferase 50 U/L (0-33); Albumin Level 2.5 g/dL (3.5-5.2); Alkaline Phosphatase 195 IU/L (35-105); Anion Gap 14.8 (5-19); Aspartate Amino Transferase 68 U/L (0-32); Blood Urea Nitrogen 41 mg/dL (6-20); Carbon Dioxide 20 mmol/L (22-29); Chloride 107 mmol/L (98-107); Globulin 4.2 g/dL (1.3-4.6); Glomerular Filtration Rate 25.4 mL/min (90-130); Glucose 397 mg/dL (65-115); Osmolality Calculated 311 mOsm/kg (285-295); Potassium 4.8 mmol/L (3.5-5.1); Sodium 137 mmol/L (136-145); Total Bilirubin 0.2 mg/dL (0.15-1.2); Total Protein 6.7 g/dL (6.6-8.7)
[2022-01-25] MEDS: ondansetron 2 mg/ML SDV 2 mL 4 MG IVP (14:42)
[2022-01-25] MEDS: morphine 4 mg/mL SDV 1 mL IVP (14:42)
[2022-01-25 14:49] LABS: Lactic Sepsis W/Reflex 1.3 mmol/L (0.5-2.2)
[2022-01-25 14:50] LABS: D Dimer 1.88 ug/mIFEU (0-0.59)
[2022-01-25 14:51] LABS: Lipase 67 U/L (13-60); Magnesium 1.5 mg/dL (1.7-2.3)
[2022-01-25 14:59] LABS: Procalcitonin 0.13 ng/mL (0-0.5)
[2022-01-25 17:33] LABS: ABG PCO2 48.4 mmHg (35-45); ABG PH Result 7.23 (7.35-7.45); Base Excess ABG -6.8 mmol/L (-2.0-2.0); Blood Gas Sample Site Brachial, right; Blood Gas Sample Type Arterial; Carboxyhemoglobin 1.1 %THgb (0.4-20.1); HCO3 ABG 20.4 mmol/L (22-26); HGB O2 Sat 98.4 % (95-100); Ionized Calcium Level - ABG 1.3 mmol/L (1.1-1.4); Methemoglobin 1.1 % (0.4-1.5); Oxygen Device NRB; Oxygen Saturation ABG > 100.0; Potassium Level - ABG 5.4 mmol/L (3.5-5.0); Total Hemoglobin 8.8 g/dL (12-16)
--- NOTE | 2022-01-25 17:49 | PM.HP ---
Providers/Chief Complaint Admitting Physician: Austin Che MD Primary Care Provider: SUZANNE Dias Chief Complaint: CP/SOB History of Present Illness Donita Aguilar is a 36 year old female who was seen in the ER this morning for her right-sided flank pain, she was discharged home, presented back with chief complaint of worsening shortness of breath. Patient is stating that she woke up feeling short of breath, she is endorsing orthopnea and PND. No active chest pain, fever, or diarrhea. No cold sweats. She called 911, en- route to the hospital they decided to airlift to the hospital for worsening of hypoxia. In the ER she was on 15 L nonrebreather mask. Patient is stating that she spent almost 10 days at [facility], she was discharged on 1 month supply of linezolid and Levaquin. She has not finished the course of treatment. She was not COVID positive at [facility]. She thinks she got COVID from her previous hospitalization. Her stay was prolonged because of tuberculosis work-up. Her QuantiFERON test was unremarkable. Patient is stating that she went home and smoked her meth with a pipe. She shares a pipe with her boyfriend. She does not use IV drugs. She is endorsing to inhalation of meth via pipe. Her previous records were reviewed She was seen by pulmonology and nephrology. QuantiFERON ruled out tuberculosis which was requested because of right lung cavitary lesion. She was given antibiotics for gram-negative bacteremia which was renally dosed, Levaquin 750 mg every 48 hours which was switched to Zyvox. She was given 30-day supply. Creatinine at the day of discharge 2.9. Her bacteremia was secondary to E. coli, source was UTI she developed acute renal failure, suffered from C. difficile colitis as well, please note her blood cultures were positive for gram-negative rods and gram-positive cocci she was kept on Rocephin and vancomycin. On previous visit fungal serology was also requested. She was given referral to see Dr. Garcia PCP and clinical services consultant Dr. Mar in the ER she is diagnosed with COVID-19 currently she is on 5 L, BiPAP has been turned off which was used to decrease work of breathing Review of Systems Const: Reports: chills, body aches and fatigue Eyes: Denies: change in vision ENMT: Denies: throat pain Card: Denies: chest pain Resp: Reports: dyspnea and non-productive cough GI: Reports: abdominal pain and nausea : Reports: difficulty voiding Musc: Denies: neck pain Skin/Breast: Denies: rash Neuro: Denies: headache(s) Psych: Reports: anxiety Endo: Reports: polyuria Ramiro/Lymph: Reports: easy bruising All/Imm: Denies: urticaria Medications/Allergies Home Medications Medication Instructions Recorded Confirmed Last Taken Type glucagon HCl 1 mg solution for 1 mg SUBCUT Q20M PRN hypoglycemia 08/22/20 01/25/22 Unknown Rx injection (Glucagon (HCl) #3 ea Emergency Kit) diphenhydramine HCl 25 mg tablet 25 mg PO BID 01/22/22 01/25/22 01/21/22 History (Benadryl Allergy) insulin aspart U-100 100 unit/mL See Rx Instructions .Route .COMPLEX 01/22/22 01/25/22 Unknown History (3 mL) subcutaneous pen (Novolog Flexpen U-100 Insulin aspart) amoxicillin 875 mg-potassium 1 tab PO BID #10 tabs 01/23/22 01/25/22 Unknown Rx clavulanate 125 mg tablet insulin glargine 100 unit/mL (3 15 unit (0.15 mL) SUBCUT 01/23/22 01/25/22 Unknown Rx mL) subcutaneous pen (Lantus BID@0600,1800 #3 mL Solostar U-100 Insulin) pantoprazole 40 mg tablet,delayed 40 mg PO DAILY #30 tabs 01/23/22 01/25/22 Unknown Rx release tamsulosin 0.4 mg capsule 0.4 mg PO DAILY #30 caps 01/23/22 01/25/22 Unknown Rx hydrocodone 5 mg-acetaminophen 325 1 tab PO Q6H PRN pain #14 tabs 01/25/22 01/25/22 Unknown Rx mg tablet ondansetron 4 mg disintegrating 4 mg PO Q6H PRN nausea and 01/25/22 01/25/22 Unknown Rx tablet vomiting #14 tabs Allergies Allergy/AdvReac Type Severity Reaction Status Date / Time acetaminophen AdvReac Mild ADR-Gastrointestinal Verified 01/22/22 08:26 Upset PFSH Acute PFSH: Medical History (Updated 01/25/22 @ 18:19 by Austin Che MD) Acute hyperglycemia Anxiety Arnold-Chiari malformation Celiac disease Chronic headache Complicated UTI (urinary tract infection) Cystitis Diabetic gastroparesis -continue Reglan Diabetic neuropathy associated with type 1 diabetes mellitus DKA (diabetic ketoacidoses) Elevated lactic acid level Esophagitis Exposure to severe acute respiratory syndrome coronavirus 2 (SARS-CoV-2) -COVID-19 negative (PCR) History of pancreatitis HTN (hypertension) Hyperglycemia Lymphadenitis Migraine headache Non-alcoholic fatty liver disease Pancreatitis PID (pelvic inflammatory disease) Pleural effusion 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 Pyelonephritis Recurrent UTI Respiratory failure Sepsis Type 1 diabetes mellitus Uncontrolled type 1 diabetes mellitus Ureterolithiasis Surgical History History of cholecystectomy History of endoscopy History of lung surgery -s/p LLL lobectomy secondary to cavitary pneumonia (2017) Family History Grandfather Diabetes Other Heart disease Hypertension Social History Smoking and tobacco status: current every day smoker cigarettes Packs smoked per day: 0.5 Second hand smoke exposure: Yes Alcohol intake: never Household members: children Housing: House Marital status: Single Current occupational status: unemployed Female Reproductive History: Date of last menstrual period: 11/23/20 Vitals/I&O/Wt Last Vital Signs Temp 97.9 F 01/25/22 13:36 Pulse 91 01/25/22 17:00 Resp 18 01/25/22 16:00 BP 143/100 01/25/22 17:00 Pulse Ox 100 01/25/22 17:00 O2 Del Method 01/25/22 16:00 O2 Flow Rate 15 01/25/22 16:00 Weight last 48 hrs Weight 68.039 kg Physical Exam Narrative: Malnourished young female Diffuse crackles No active wheezing Currently on 5 L nasal cannula Conversational dyspnea Work of breathing has improved Hemodynamically stable for now I could not hear her heart sounds because of her coarse rhonchi and crackles Abdomen soft 2+ pitting edema of her extremities Nonfocal neuro exam Awake and alert Data : 01/26/22 04:05 01/26/22 04:05 Micro: Microbiology 01/25/22 13:55 Blood Culture - Preliminary Blood SPECIMEN COLLECTED 01/25/22 14:05 Blood Culture - Preliminary Blood SPECIMEN COLLECTED A&P Assessment and plan (1) Abdominal pain: Status: Acute Qualifiers: Abdominal location: generalized Qualified Code(s): R10.84 - Generalized abdominal pain (2) COVID-19: Status: Acute (3) Tobacco dependence: Status: Acute (4) Metabolic acidosis: Status: Acute (5) Drug abuse: Status: Acute (6) Anemia: Status: Acute (7) Diabetes mellitus: Status: Acute (8) Elevated serum creatinine: Status: Acute (9) Long-term insulin use: Status: Acute (10) Recurrent UTI: Status: Acute Plan COVID-19 pneumonia Symptom started roughly 7 days ago Acute hypoxia Currently on 5 L nasal cannula Patient has multiple comorbid conditions I will start her on remdesivir Watch her kidney function With use of steroids closely monitor her blood sugar Recently QuantiFERON test came back negative TB ruled out Fungal serology was also requested I am not sure about the results of fungal serology Patient has diffuse crackles I would also diurese her with Lasix, her albumin is low, she is hypertensive ATN related to nephrotoxic agents from previous hospitalization Creatinine seems to be around new baseline No urgent need of dialysis Potassium is stable Mild acidosis Patient is stating that she is insulin-dependent diabetic Start her on high-dose of insulin, sliding scale and Lantus Previous hemoglobin A1c 13 Noncompliant Active smoker, inhales meth History of left lower lobe lobectomy for necrotic pneumonia Septic emboli? 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
[2022-01-25 18:08] LABS: Add Urine Microscopic? YES; Bilirubin Urine Neg (Negative); Blood Urine 3+ (Negative); Glucose Urine UA 4+ (Normal); Ketones Urine Negative (Negative); Leukocyte Esterase Urine Negative (Negative); Nitrate Urine Negative (Negative); Protein Urine 3+ (Negative); Specific Gravity, Urine 1.015 (1.005-1.030); Urine Appearance Hazy (CLEAR); Urine Color Yellow (Yellow); Urobilinogen Urine Norm (Negative); pH Urine 5 (5-7)
[2022-01-25 18:09] LABS: Add Urine Culture? Yes; Squamous Epithelial Cell Urine 0-4 /hpf (0-5); WBC Urine TOO NUMEROUS TO CNT /hpf (0-5)
[2022-01-25] MEDS: morphine 4 mg/mL SDV 1 mL 2 MG IVP ×2 (19:59→23:40)
[2022-01-25] MEDS: FUROsemide 10 mg/mL SDV 10mL 60 MG IVP (20:02)
[2022-01-25] MEDS: heparin 5,000 unit/mL INJ 1 mL 5000 UNIT SUBCUT (20:20)
[2022-01-25 20:38] LABS: ABG PCO2 40.4 mmHg (35-45); ABG PH Result 7.29 (7.35-7.45); Arterial Blood Gas Hematocrit 28.1 % (37-47); Base Excess ABG -6.9 mmol/L (-2.0-2.0); Blood Gas Operator Identificat JB; Blood Gas Sample Site Brachial, right; Blood Gas Sample Type Arterial; Carboxyhemoglobin 1.3 %THgb (0.4-20.1); HCO3 ABG 19.2 mmol/L (22-26); HGB O2 Sat 97.2 % (95-100); Ionized Calcium Level - ABG 1.3 mmol/L (1.1-1.4); Methemoglobin 0.9 % (0.4-1.5); Oxygen Device NC; Oxygen Saturation ABG 99.4; Potassium Level - ABG 5.1 mmol/L (3.5-5.0); Total Hemoglobin 9.2 g/dL (12-16)
[2022-01-25] MEDS: linezolid premix 600 MG/300 ML PREMIX 300 MG IV (20:43)
[2022-01-25 21:11] LABS: Glucose Point of Care 348 mg/dL (70-110)
[2022-01-25] MEDS: remdesivir 200 MG in sodium chloride 0.9% (100 ml) 60 ML 100 MG IV (21:26)
[2022-01-25] MEDS: midazolam 1 mg/mL INJ 2 mL 2 MG IVP (21:40)
--- NOTE | 2022-01-25 22:43 | PC.NURSE ---
Pt refuses to wear a hospital gown or pants.
--- NOTE | 2022-01-25 22:55 | PC.NURSE ---
Pt initially came from ED crying and sobbing uncontrollably, unable to speak. Once patient moved to bed, she calmed down. She appears lethargic, but is alert, oriented, and cooperative. She reports extreme anxiety and chest pain. Pt aware that she has morphine scheduled PRN. Upon arrival from the ED, pt had audible coarse crackles with a persistent cough. Pt is refusing Bipap due to claustrophobia and anxiety. Education provided and provider notified.
--- NOTE | 2022-01-25 23:30 | PC.NURSE ---
Pt resting quietly in bed with eyes closed. Respirations are even and unlabored. Bipap has been placed on patient.
[2022-01-26] VITALS (77 sets, daily range): BP systolic 93–156; BP diastolic 61–107; PULSE 72–98; RESP 3–26; TEMP 36.2–36.6; O2SAT 92–100
--- NOTE | 2022-01-26 01:19 | PC.NURSE ---
Pt states that she needs to keep bipap off for a short time. She agrees to put it back on after next morphine dose at 0140.
[2022-01-26] MEDS: morphine IR 15 mg Tablet PO ×3 (01:37→18:31)
[2022-01-26] MEDS: heparin 5,000 unit/mL INJ 1 mL 5000 UNIT SUBCUT ×3 (04:05→17:01)
[2022-01-26] MEDS: morphine 4 mg/mL SDV 1 mL 2 MG IVP ×3 (04:05→21:32)
[2022-01-26 04:16] LABS: Basophils # 0.1 10^3/uL (0.0-0.1); Basophils % 0.5 %; Eosinophils # 0.2 10^3/uL (0.0-0.8); Eosinophils % 2.2 %; Hematocrit 28.6 % (37.0-47.0); Hemoglobin 8.5 g/dL (11.5-15.3); Lymphocytes # 2.2 10^3/uL (0.8-4.8); Lymphocytes % 22.6 %; Mean Corpuscular HGB Conc 29.7 g/dL (30.0-36.0); Mean Corpuscular Hemoglobin 26.2 pg (28.0-34.0); Mean Corpuscular Volume 88.3 fl (81-99); Mean Platelet Volume 9.3 fL (7.4-10.4); Monocytes # 0.8 10^3/uL (0.2-0.9); Monocytes % 8.2 %; Neutrophils # 6.52 10^3/uL (1.8-7.7); Neutrophils % 66.3 %; Nucleated Red Blood Cells % 0 %; Platelet Count 232 10^3/cmm (130-400); Red Blood Count 3.24 10^6/uL (4.1-5.3); Red Cell Distribution Width 17.2 % (12.1-15.1); White Blood Count 9.8 10^3/uL (4.0-10.0)
[2022-01-26 04:49] LABS: Alanine Aminotransferase 43 U/L (0-33); Albumin Level 2.5 g/dL (3.5-5.2); Alkaline Phosphatase 183 IU/L (35-105); Anion Gap 15.2 (5-19); Aspartate Amino Transferase 29 U/L (0-32); Blood Urea Nitrogen 43 mg/dL (6-20); C Reactive Protein 21.5 mg/L (0.0-4.9); Calcium 8.4 mg/dL (8.5-10.5); Carbon Dioxide 22 mmol/L (22-29); Chloride 111 mmol/L (98-107); Globulin 4.1 g/dL (1.3-4.6); Glomerular Filtration Rate 24.1 mL/min (90-130); Glucose 216 mg/dL (65-115); Magnesium 1.5 mg/dL (1.7-2.3); Osmolality Calculated 313 mOsm/kg (285-295); Phosphorus 4.4 mg/dL (2.5-4.5); Potassium 5.2 mmol/L (3.5-5.1); Sodium 143 mmol/L (136-145); Total Bilirubin 0.2 mg/dL (0.15-1.2); Total Protein 6.6 g/dL (6.6-8.7)
[2022-01-26 05:40] LABS: ABG PCO2 41.8 mmHg (35-45); ABG PH Result 7.32 (7.35-7.45); Arterial Blood Gas Hematocrit 25.4 % (37-47); Base Excess ABG -4.3 mmol/L (-2.0-2.0); Blood Gas Operator Identificat JB; Blood Gas Sample Site Brachial, right; Blood Gas Sample Type Arterial; HCO3 ABG 21.5 mmol/L (22-26); Oxygen Device BIPAP; PO2 ABG 87.3 mmHg (80.0-100.0)
[2022-01-26] MEDS: FUROsemide 10 mg/mL SDV 10mL 60 MG IVP ×2 (06:06→17:22)
[2022-01-26] MEDS: insulin glargine 100 units/1 mL 15 UNIT SUBCUT (06:07)
[2022-01-26] MEDS: linezolid premix 600 MG/300 ML PREMIX 300 MG IV ×2 (08:06→20:16)
[2022-01-26] MEDS: pantoprazole DR 40 mg Tablet PO (08:08)
[2022-01-26] MEDS: sennosides-docusate Tablet 1 TAB PO (08:08)
[2022-01-26] MEDS: tamsulosin 0.4 mg Capsule PO (08:09)
[2022-01-26] MEDS: insulin lispro 100 unit/1 mL SUBCUT ×2 (08:09→17:00)
[2022-01-26] MEDS: dexamethasone 4 mg Tablet 6 MG PO (08:09)
[2022-01-26 09:57] LABS: Glucose Point of Care 190 mg/dL (70-110)
--- NOTE | 2022-01-26 10:09 | USCV_ITS ---
Donita Aguilar Age: 36 Gender: F : 1985 Exam Date: 01/26/2022 12:51 Ordering Phys: Austin Che MD Technologist: Elian Boyer Exam Location: [facility] [place] Indication: hf BP: 128 / 91 HR: 76 Rhythm: Sinus Technical Quality: Adequate MEASUREMENTS (Male / Female) Normal Values 2D ECHO LV Diastolic Diameter PLAX 3.8 cm 4.2 - 5.9 / 3.9 - 5.3 cm LV Systolic Diameter PLAX 3.0 cm IVS Diastolic Thickness 0.9 cm 0.6 - 1.0 / 0.6 - 0.9 cm IVS Systolic Thickness 1.2 cm LVPW Diastolic Thickness 1.5 cm 0.6 - 1.0 / 0.6 - 0.9 cm LVPW Systolic Thickness 1.4 cm LVOT Diameter 2.0 cm LV Ejection Fraction 2D Teich 41.0 % LV Ejection Fraction MOD 2C 43.8 % LV Ejection Fraction 2C AL 44.4 % LA Diameter 3.5 cm LA Width 4.3 cm LA Height 4.9 cm RA Width 3.5 cm RA Height 4.5 cm Aorta at Sinotubular Diameter 2.2 cm IVC Diameter 1.7 cm M-MODE Aortic Annulus Diameter 2.3 cm LA Ao Ratio MM 1.4 MV E Point Septal Separation 0.9 cm DOPPLER AV Peak Velocity 138.7 cm/s LVOT Peak Velocity 93.0 cm/s AV Area Cont Eq vti 1.9 cm squared AV Area Cont Eq pk 2.1 cm squared MV Peak Velocity 156.0 cm/s MV Area PHT 5.0 cm squared Mitral E to A Ratio 1.5 MV E' Velocity 55.0 cm/s Mitral E to MV E' Ratio 12.0 Mitral E to LV E' Lateral Ratio 12.2 Mitral E to LV E' Septal Ratio 12.0 TR Peak Velocity 379.5 cm/s TR Peak Gradient 57.6 mmHg TR Mean Velocity 308.8 cm/s TR Mean Gradient 40.4 mmHg TR Velocity Time Integral 126.7 cm Right Atrial Pressure 3.0 mmHg Pulmonary Artery Systolic Pressu 60.6 mmHg RV Acceleration Time 0.1 s RV Ejection Time 0.4 s RV AcT/ET 0.2 FINDINGS Left Ventricle Mild left ventricular hypertrophy. Mild hypokinesis of the mid and apical anterior and anteroseptal wall segments. Slightly dyskinetic basal inferior wall segment. LV ejection fraction, 50 to 55% Right Ventricle The right ventricle is normal in size and function. Right Atrium The right atrium is normal in size. Left Atrium Mildly increased left atrial size. Mitral Valve Mild to moderate mitral valve regurgitation. Aortic Valve No gross abnormalities noted Tricuspid Valve Mild tricuspid valve regurgitation. Pulmonic Valve No gross abnormality noted Pericardium Trivial pericardial effusion. Aorta Normal ascending aorta dimension. IVC The inferior vena cava pulmonary and hepatic veins appear normal. CONCLUSIONS Mild left ventricular hypertrophy. Wall motion abnormalities as mentioned above Normal LV size with a borderline low LV ejection fraction of 50 to 55%(Visual). Mild to moderate mitral valve regurgitation. Mild tricuspid valve regurgitation. Estimated pulmonary artery peak systolic pressure of 61 mmHg- this could be an overestimation because of the poor Doppler signals Trivial pericardial effusion. Compared to the study from 08/17/2020, the wall motion abnormalities appear to be new, so also the pulmonary hypertension? Dr Gilberto Eugene MD FAC (Electronically Signed) Final Date: 26 January 2022 16:18 S
--- NOTE | 2022-01-26 10:09 | CTR_ITS ---
PROCEDURE INFORMATION: Exam: CT Chest Without Contrast; Diagnostic Exam date and time: 01/26/2022 10:58 AM Age: 36 years old Clinical indication: Nausea; Cough; Additional info: Covid pna TECHNIQUE: Imaging protocol: Diagnostic computed tomography of the chest without contrast. Radiation optimization: All CT scans at this facility use at least one of these dose optimization techniques: automated exposure control; mA and/or kV adjustment per patient size (includes targeted exams where dose is matched to clinical indication); or iterative reconstruction. COMPARISON: CT chest abd pel w con* 12/17/2020 4:38 PM RADIATION DOSE METRICS: Total DLP (mGy-cm): 636.01 FINDINGS: Lungs: See Pleural spaces finding. Pleural spaces: There is consolidations in the right lower lobe and scattered ground-glass opacities throughout both lungs, in association with small bilateral pleural effusions, highly suggestive of multifocal pneumonia with parapneumonic effusion. Pneumonia with superimposed pulmonary edema can also have this appearance. Surgical changes in the medial left lung seen. Mild diffuse peribronchial thickening is present. No pneumothorax. Heart: Normal heart size. Coronary atherosclerotic calcifications seen. No pericardial effusion. Lymph nodes: Small reactive mediastinal lymph nodes seen. Small bilateral hilar calcified lymph nodes noted, likely sequela of previous granulomatous disease. Vasculature: Unremarkable. No aortic aneurysm. Bones/joints: Degenerative changes of the spine seen. No acute fracture. Soft tissues: There is stranding of the subcutaneous tissues, consistent with edema. PROCEDURE INFORMATION: Exam: CT Abdomen And Pelvis Without Contrast Exam date and time: 01/26/2022 10:58 AM Age: 36 years old Clinical indication: Nausea; Cough; Additional info: Covid pna TECHNIQUE: Imaging protocol: Computed tomography of the abdomen and pelvis without contrast. Radiation optimization: All CT scans at this facility use at least one of these dose optimization techniques: automated exposure control; mA and/or kV adjustment per patient size (includes targeted exams where dose is matched to clinical indication); or iterative reconstruction. COMPARISON: CT abdomen pelvis w con* [id number] 01/28/2021 4:59 PM RADIATION DOSE METRICS: Total DLP (mGy-cm): 636.01 FINDINGS: Liver: Normal. No mass. Gallbladder and bile ducts: The gallbladder has been surgically removed. Pancreas: Normal. No ductal dilation. Spleen: Normal. No splenomegaly. Adrenal glands: Normal. No mass. Kidneys and ureters: Normal. No hydronephrosis. Stomach and bowel: Unremarkable. No obstruction. No mucosal thickening. Appendix: No evidence of appendicitis. Intraperitoneal space: A small amount of free fluid is seen in the pelvis. Vasculature: Unremarkable. No abdominal aortic aneurysm. Lymph nodes: Unremarkable. No enlarged lymph nodes. Urinary bladder: The urinary bladder is decompressed with a Sanders catheter in place. Reproductive: Unremarkable as visualized. Bones/joints: Degenerative changes of the spine and chronic bilateral L5 pars fracture seen. No acute fracture. Soft tissues: There is diffuse stranding of the subcutaneous fat, consistent with edema. CT/[place] [id number] IMPRESSION: 1. Imaging findings of multifocal pneumonia with bilateral parapneumonic effusions. Pneumonia with superimposed pulmonary edema can also have this appearance. 2. Imaging features can be seen with (COVID-19) pneumonia, though are nonspecific and can occur with a variety of infectious and noninfectious processes. 3. Anasarca. IMPRESSION: 1. Anasarca, manifested by subcutaneous edema, small amount of ascites and bilateral pleural effusions. 2. No acute intra-abdominal or intrapelvic pathology.
--- NOTE | 2022-01-26 10:21 | PM.PN ---
Subjective Subjective: Patient is stating that he is feeling better Crackles improved Adequate urine output Leukocytosis improved Afebrile No thrombocytopenia or leukopenia Hemoglobin stable I do not see any signs of cola colored urine or hematuria Potassium 5.2, creatinine 2.3 I have requested 24-hour urine collection, echo Her proteinuria could be related to diabetes, Serum ketones negative Vitals/I&O/Wt Last Vital Signs Temp 97.6 F 01/26/22 09:00 Pulse 78 01/26/22 09:00 Resp 26 H 01/26/22 09:00 BP 128/91 01/26/22 09:00 Pulse Ox 100 01/26/22 09:00 O2 Del Method 01/26/22 08:57 O2 Flow Rate 4 01/26/22 08:57 FiO2 30 01/26/22 06:15 01/25/22 01/26/22 01/26/22 22:59 06:59 14:59 Intake Total 100 / 100 840 / 940 400 / 400 Output Total 500 / 500 1000 / 1500 Balance -400 / -400 -160 / -560 400 / 400 Weight last 48 hrs Weight 64.047 kg Weight 66.179 kg Weight 68.039 kg Physical Exam Narrative: Hemodynamically stable Currently on 4 L Crackles improved significantly Still have edema of her upper and lower extremities Awake and alert She was talking better today no conversational dyspnea She was talking with the family over the phone ALEXANDER PERLA Nonfocal neuro exam S1, S2 Sinus rhythm on telemetry Urinary Catheter Management: Sanders: Cath Placed During This Visit: no Reason for Continuing Indwelling Catheter: Accurate Measurement of Urinary Output in Critically Ill Patients Data : 01/26/22 04:05 01/26/22 04:05 Micro: Microbiology 01/25/22 17:40 Urine Culture - Preliminary Urine,Clean Catch 01/25/22 13:55 Blood Culture - Preliminary Blood SPECIMEN COLLECTED 01/25/22 14:05 Blood Culture - Preliminary Blood SPECIMEN COLLECTED A&P Assessment and plan (1) Abdominal pain: Status: Acute Qualifiers: Abdominal location: generalized Qualified Code(s): R10.84 - Generalized abdominal pain (2) COVID-19: Status: Acute (3) Metabolic acidosis: Status: Acute (4) Tobacco dependence: Status: Acute (5) Drug abuse: Status: Acute (6) Anemia: Status: Acute (7) Diabetes mellitus: Status: Acute (8) Acute kidney injury superimposed on chronic kidney disease: Status: Acute (9) Recurrent UTI: Status: Acute Plan COVID-19 pneumonia Shortness of breath, tachypnea: Resolved Currently on 4 L Continue Decadron remdesivir I did encourage patient to use BiPAP for worsening shortness of breath to avoid intubation, she is agreeable Fluid overload Most likely this is related to her underlying CHF Request echo I would also get 24-hour urine protein studies She has low albumin, hypertension, anemia, diabetes related proteinuria Continue Lasix Avoid albumin because of high sodium content Anxiety: I would add as needed Ativan Polysubstance abuse: No active signs of withdrawal endorses to use of meth Right lung cavitary lesion, at [facility] from test was unremarkable, fungal serology was not reported I will repeat CT chest without contrast Recurrent UTI She seems to have neurogenic bladder related to diabetes Currently has a Sanders catheter No signs of cauda equina or cord compression Continue antibiotics Previous history of strep agalactecae pyelonephritis which is very unusual Patient does not carry history of HIV or hepatitis Acute on chronic kidney injury Patient developed ATN from nephrotoxic agents Currently on linezolid and imipenem Creatinine at the time of discharge at [facility] was 2.9, this seems to be her new baseline She was diagnosed with E. coli bacteremia source was UTI, however in her records gram-positive cocci were listed I did not see final culture results Cultures and urine culture obtained No evidence of active evidence of C. 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
[2022-01-26 11:20] LABS: Estmated Average Glucose 295; Hemoglobin A1C 11.9 % (4.0-6.0)
[2022-01-26] MEDS: magnesium oxide 400 mg tablet PO (11:20)
[2022-01-26] MEDS: dextrose 50% syringe 50 mL IVP (12:01)
[2022-01-26 12:31] LABS: Glucose Point of Care 44 mg/dL (70-110)
[2022-01-26 12:31] LABS: Glucose Point of Care 194 mg/dL (70-110)
[2022-01-26 12:31] LABS: Glucose Point of Care 42 mg/dL (70-110)
[2022-01-26 12:31] LABS: Glucose Point of Care 37 mg/dL (70-110)
[2022-01-26] MEDS: sodium polystyrene sulfonate 15 gm/60 mL Btl PO (13:33)
[2022-01-26 16:21] LABS: Glucose Point of Care 104 mg/dL (70-110)
[2022-01-26 16:21] LABS: Glucose Point of Care 167 mg/dL (70-110)
[2022-01-26] MEDS: insulin glargine 100 units/1 mL 10 UNIT SUBCUT (17:02)
[2022-01-26] MEDS: remdesivir 100 MG in sodium chloride 0.9% (100 ml) 80 ML IV (17:22)
[2022-01-26 20:52] LABS: Glucose Point of Care 300 mg/dL (70-110)
[2022-01-26] MEDS: LORazepam 0.5 mg Tablet 0.25 MG PO (23:53)
[2022-01-27] VITALS (41 sets, daily range): BP systolic 117–153; BP diastolic 81–99; PULSE 73–93; RESP 7–20; TEMP 36.4–37.1; O2SAT 93–99
[2022-01-27] MEDS: heparin 5,000 unit/mL INJ 1 mL 5000 UNIT SUBCUT ×3 (03:17→17:36)
[2022-01-27] MEDS: morphine 4 mg/mL SDV 1 mL 2 MG IVP ×4 (04:21→20:48)
[2022-01-27 06:18] LABS: PROTEIN, TOTAL 6.8 g/dL (6.1-8.1)
[2022-01-27 06:25] LABS: Basophils % 0.3 %; Hematocrit 26.9 % (37.0-47.0); Hemoglobin 8.1 g/dL (11.5-15.3); Lymphocytes # 1.7 10^3/uL (0.8-4.8); Lymphocytes % 23.6 %; Mean Corpuscular HGB Conc 30.1 g/dL (30.0-36.0); Mean Corpuscular Volume 86.5 fl (81-99); Mean Platelet Volume 10.1 fL (7.4-10.4); Monocytes # 0.5 10^3/uL (0.2-0.9); Monocytes % 6.5 %; Neutrophils % 69.5 %; Nucleated Red Blood Cells % 0 %; Platelet Count 269 10^3/cmm (130-400); Red Blood Count 3.11 10^6/uL (4.1-5.3); Red Cell Distribution Width 17.5 % (12.1-15.1); White Blood Count 7.2 10^3/uL (4.0-10.0)
[2022-01-27 07:01] LABS: Alanine Aminotransferase 27 U/L (0-33); Albumin Level 2.6 g/dL (3.5-5.2); Alkaline Phosphatase 149 IU/L (35-105); Anion Gap 16.9 (5-19); Aspartate Amino Transferase 16 U/L (0-32); Blood Urea Nitrogen 52 mg/dL (6-20); Calcium 8.8 mg/dL (8.5-10.5); Carbon Dioxide 22 mmol/L (22-29); Chloride 105 mmol/L (98-107); Globulin 3.9 g/dL (1.3-4.6); Glucose 284 mg/dL (65-115); Osmolality Calculated 312 mOsm/kg (285-295); Potassium 4.9 mmol/L (3.5-5.1); Sodium 139 mmol/L (136-145); Total Bilirubin 0.2 mg/dL (0.15-1.2); Total Protein 6.5 g/dL (6.6-8.7)
[2022-01-27 07:20] LABS: Glucose Point of Care 250 mg/dL (70-110)
[2022-01-27] MEDS: insulin glargine 100 units/1 mL 10 UNIT SUBCUT ×2 (08:00→17:37)
[2022-01-27] MEDS: insulin lispro 100 unit/1 mL SUBCUT ×4 (08:01→21:53)
[2022-01-27] MEDS: linezolid premix 600 MG/300 ML PREMIX 300 MG IV (08:01)
[2022-01-27] MEDS: magnesium oxide 400 mg tablet PO (08:02)
[2022-01-27] MEDS: pantoprazole DR 40 mg Tablet PO (08:02)
[2022-01-27] MEDS: dexamethasone 4 mg Tablet 6 MG PO (08:02)
[2022-01-27] MEDS: sennosides-docusate Tablet 1 TAB PO (08:02)
[2022-01-27] MEDS: tamsulosin 0.4 mg Capsule PO (08:02)
[2022-01-27] MEDS: FUROsemide 10 mg/mL SDV 10mL 60 MG IVP ×2 (08:02→17:36)
--- NOTE | 2022-01-27 11:02 | P.CONIM_ITS ---
Providers/Reason For Consult Consulting Physician/Specialty*: Shahida Fitzgerald DO, telenephrology Reason for Consult*: Acute kidney injury, anasarca Requesting Physician: Austin Che MD Attending Physician: Austin Che MD Primary Care Provider: SUZANNE Dias History of Present Illness History of Present Illness Donita Aguilar is a 36 year old female, in ICU, COVID pneumonia, anasarca, IDDM, methamphetamine pipe user. 2020 serum Cr 0.6 - 1 mg/dL, urinalysis negative for albuminuria. Recently hospitalized with E.coli urosepsis, C.diff, cavitary pulmonary lesion. Donita reports she had not seen doctors or had blood work for a year. Did not miss insulin. Can check BS About one month ago she started see leg swelling during the day that improved by next morning. A few days ago the swelling worsened. Review of Systems Const: Reports: change in appetite Card: Reports: edema Resp: Reports: dyspnea Medications/Allergies Home Medications Medication Instructions Recorded Confirmed Last Taken Type glucagon HCl 1 mg solution for 1 mg SUBCUT Q20M PRN hypoglycemia 08/22/20 01/25/22 Unknown Rx injection (Glucagon (HCl) #3 ea Emergency Kit) diphenhydramine HCl 25 mg tablet 25 mg PO BID 01/22/22 01/25/22 01/21/22 History (Benadryl Allergy) insulin aspart U-100 100 unit/mL See Rx Instructions .Route .COMPLEX 01/22/22 01/25/22 Unknown History (3 mL) subcutaneous pen (Novolog Flexpen U-100 Insulin aspart) amoxicillin 875 mg-potassium 1 tab PO BID #10 tabs 01/23/22 01/25/22 Unknown Rx clavulanate 125 mg tablet insulin glargine 100 unit/mL (3 15 unit (0.15 mL) SUBCUT 01/23/22 01/25/22 Unknown Rx mL) subcutaneous pen (Lantus BID@0600,1800 #3 mL Solostar U-100 Insulin) pantoprazole 40 mg tablet,delayed 40 mg PO DAILY #30 tabs 01/23/22 01/25/22 Unknown Rx release tamsulosin 0.4 mg capsule 0.4 mg PO DAILY #30 caps 01/23/22 01/25/22 Unknown Rx hydrocodone 5 mg-acetaminophen 325 1 tab PO Q6H PRN pain #14 tabs 01/25/22 01/25/22 Unknown Rx mg tablet ondansetron 4 mg disintegrating 4 mg PO Q6H PRN nausea and 01/25/22 01/25/22 Unknown Rx tablet vomiting #14 tabs Allergies Allergy/AdvReac Type Severity Reaction Status Date / Time acetaminophen AdvReac Mild ADR-Gastrointestinal Verified 01/22/22 08:26 Upset Current Medications Generic Name Dose Route Start Last Admin Trade Name Freq PRN Reason Stop Dose Admin Dexamethasone 6 mg 01/26/22 09:00 01/27/22 08:02 Dexamethasone 4 Mg Tablet PO 6 mg DAILY SHAY Administration Dextrose 50 ml 01/25/22 18:56 01/26/22 12:01 Dextrose 50% Syringe 50 Ml IVP 50 ml PRN PRN Administration hypoglycemia protocol Protocol Furosemide 60 mg 01/25/22 18:56 01/27/22 08:02 Furosemide 10 Mg/Ml Sdv 10ml IVP 60 mg Q12H SHAY Administration Heparin Sodium (Porcine) 5,000 unit 01/25/22 18:56 01/27/22 03:17 Heparin 5,000 Unit/Ml Inj 1 Ml SUBCUT 5,000 unit Q8H SHAY Administration Linezolid 600 mg in 300 mls @ 300 mls/hr 01/25/22 19:30 01/27/22 09:01 Zyvox Premix IV Infused Q12H SHAY Infusion Protocol Imipenem/Cilastatin Sodium 250 100 mls @ 200 mls/hr 01/25/22 19:30 01/27/22 08:31 mg/ Dextrose IV Infused Q12H SHAY Infusion Remdesivir 100 mg/ Sodium 80 mls @ 100 mls/hr 01/26/22 18:00 01/26/22 18:10 Chloride IV 01/29/22 18:47 Infused Q24H SHAY Infusion Insulin Glargine 10 unit 01/26/22 18:00 01/27/22 08:00 Insulin Glargine 100 Units/1 Ml SUBCUT 10 unit BID@0600,1800 SHAY Administration Insulin Human Lispro 0 unit 01/26/22 18:00 01/27/22 08:01 Insulin Lispro 100 Unit/1 Ml SUBCUT 6 unit TIDWM SHAY Administration Protocol Lorazepam 0.25 mg 01/26/22 10:29 01/26/22 23:53 Lorazepam 0.5 Mg Tablet PO 0.25 mg TID PRN Administration ANXIETY Magnesium Oxide 400 mg 01/26/22 10:30 01/27/22 08:02 Magnesium Oxide 400 Mg Tablet PO 01/28/22 07:00 400 mg DAILY SHAY Administration Morphine Sulfate 2 mg 01/25/22 18:56 01/27/22 08:39 Morphine 4 Mg/Ml Sdv 1 Ml IVP 2 mg Q4H PRN Administration SEVERE PAIN Morphine Sulfate 15 mg 01/25/22 18:56 01/26/22 18:31 Morphine Ir 15 Mg Tablet PO 15 mg Q6H PRN Administration pAIN Pantoprazole Sodium 40 mg 01/26/22 09:00 01/27/22 08:[address] 40 Mg Tablet PO 40 mg DAILY SHAY Administration Senna/Docusate Sodium 1 tab 01/26/22 09:00 01/27/22 08:02 Sennosides-Docusate Tablet PO 1 tab DAILY SHAY Administration Tamsulosin HCl 0.4 mg 01/26/22 09:00 01/27/22 08:02 Tamsulosin 0.4 Mg Capsule PO 0.4 mg DAILY SHAY Administration PFSH Acute PFSH: Medical History Acute hyperglycemia Anxiety Arnold-Chiari malformation Celiac disease Chronic headache Complicated UTI (urinary tract infection) Cystitis Diabetic gastroparesis -continue Reglan Diabetic neuropathy associated with type 1 diabetes mellitus DKA (diabetic ketoacidoses) Elevated lactic acid level Esophagitis Exposure to severe acute respiratory syndrome coronavirus 2 (SARS-CoV-2) -COVID-19 negative (PCR) History of pancreatitis HTN (hypertension) Hyperglycemia Lymphadenitis Migraine headache Non-alcoholic fatty liver disease Pancreatitis PID (pelvic inflammatory disease) Pleural effusion 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 Pyelonephritis Recurrent UTI Respiratory failure Sepsis Type 1 diabetes mellitus Uncontrolled type 1 diabetes mellitus Ureterolithiasis Surgical History History of cholecystectomy History of endoscopy History of lung surgery -s/p LLL lobectomy secondary to cavitary pneumonia (2017) Family History Grandfather Diabetes Other Heart disease Hypertension Social History (Reviewed 01/27/22 @ 11:08 by JOSH Marks Smoking and tobacco status: current every day smoker cigarettes Packs smoked per day: 0.5 Second hand smoke exposure: Yes Alcohol intake: never Household members: children Housing: House Marital status: Single Current occupational status: unemployed Female Reproductive History: Date of last menstrual period: 11/23/20 Vitals/I&O/Wt Last Vital Signs Temp 97.8 F 01/26/22 22:00 Pulse 76 01/27/22 10:00 Resp 8 L 01/27/22 10:00 BP 117/85 01/27/22 10:00 Pulse Ox 97 01/27/22 10:00 O2 Del Method 01/27/22 09:36 O2 Flow Rate 4 01/26/22 08:57 FiO2 30 01/26/22 06:15 01/26/22 01/27/22 01/27/22 22:59 06:59 14:59 Intake Total 480 / 880 760 / 760 Output Total 1400 / 1400 1900 / 3300 Balance -920 / -520 -1900 / -2420 760 / 760 Weight last 48 hrs Weight 64.047 kg Weight 66.179 kg Weight 68.039 kg Physical Exam Const: COMMON NORMALS: no acute distress and alert Extremity: OTHER: no leg edema Neuro: SENSORIUM/ORIENTATION: Yes alert Urinary Catheter Management: Crowder: Cath Placed During This Visit: no Reason for Continuing Indwelling Catheter: Accurate Measurement of Urinary Output in Critically Ill Patients Data : 01/27/22 05:10 01/27/22 05:10 Other Labs: TSAT 21%, SF 787 HbA1C 11.9% serum albumin 2.6 Ca 8.8, phos 4.4, Mg 1.5 urinalysis 3+ albumin, + wbc Hep B/C/HIV neg Micro: Microbiology 01/25/22 17:40 Urine Culture - Final Urine,Clean Catch 01/25/22 00:00 MRSA Culture - Final Nose 01/25/22 13:55 Blood Culture - Preliminary Blood NEGATIVE TO DATE 01/25/22 14:05 Blood Culture - Preliminary Blood NEGATIVE TO DATE CT Abd/Pel: Radiologist's impression: Adrenal glands: Normal. No mass. Kidneys and ureters: Normal. No hydronephrosis. 1. Imaging findings of multifocal pneumonia with bilateral parapneumonic effusions. Pneumonia with superimposed pulmonary edema can also have this appearance. 2. Imaging features can be seen with (COVID-19) pneumonia, though are nonspecific and can occur with a variety of infectious and noninfectious processes. 3. Anasarca. Echo: Radiologist's impression: Mild left ventricular hypertrophy.? ?Wall motion abnormalities as mentioned above ?Normal LV size with a borderline low LV ejection fraction of? 50?to 55%(Visual). ?Mild to moderate mitral valve regurgitation. ?Mild tricuspid valve regurgitation. ?Estimated pulmonary artery peak systolic pressure of 61 mmHg?this could be an overestimation because of the poor Doppler?signals ?Trivial pericardial effusion. ?Compared to the study from 08/17/2020, the wall motion abnormalities appear to be new, so also the pulmonary hypertension? ABG Interpretation 1: 01/25/22 01/25/22 01/25/22 14:02 17:30 20:25 ABG pH 7.22 L 7.23 L 7.29 L ABG pCO2 47.8 H 48.4 H 40.4 ABG pO2 244.0 H 287.0 H 108.0 H ABG HCO3 19.7 L 20.4 L 19.2 L ABG O2 Saturation > 100.0 > 100.0 99.4 ABG Base Excess -7.6 L -6.8 L -6.9 L 01/26/22 05:26 ABG pH 7.32 L ABG pCO2 41.8 ABG pO2 87.3 ABG HCO3 21.5 L ABG O2 Saturation ABG Base Excess -4.3 L A&P Assessment and plan (1) Nephrotic syndrome: Seen via telemedicine with assistance of RN at bedside. 1. Acute kidney injury. I have not seen serum Cr prior to this admission to determine duration of renal impairment. Normal serum Cr and no overt albuminuria 1 year ago. Good urine output. Current eGFR 25 ml/min is overestimating renal function 2. Nephrotic syndrome may be due to diabetic nephropathy, although she should have had albuminuria 1 year ago if this was the case. Possible secondary glomerulopathy related to drug use, infection 3. COVID pneumonia receiving remdesivir and decadron. Oxygenating well on room a ir 4. Poorly controlled DM 5. Anemia, adequate iron 6. Pyuria, urine culture no growth. Recent e.coli urosepsis, on antibiotics Recommend: 24hr urine in process to quantify proteinuria, UPEP. Remove crowder when complete. Check complements, cryoglobulins, CHANELLE, SPEP, K/L light chains, RPR, [id number] Ab. Status: Acute Consult Attestations Medical Necessity Statement: see above Time Spent in Patient Care: 16 - 35 minutes Coding Level of Care Code Acute Landscape Management Technician for [facility] Diagnoses Nephrotic syndrome N04.9
[2022-01-27 11:19] LABS: Glucose Point of Care 178 mg/dL (70-110)
[2022-01-27 12:04] LABS: Complement C3 136 mg/dL (90-180)
--- NOTE | 2022-01-27 12:36 | PM.PN ---
Subjective Subjective: This morning patient is on movement She is breathing well, no active chest pain or shortness of breath I will transfer out of ICU Nephro consulted Echo did not show significant reduction in EF however wall motion abnormality noted, no active chest pain, I will do stress test on Saturday Vitals/I&O/Wt Last Vital Signs Temp 97.5 F L 01/27/22 11:10 Pulse 76 01/27/22 10:00 Resp 12 01/27/22 11:10 BP 120/84 01/27/22 11:10 Pulse Ox 97 01/27/22 10:00 O2 Del Method 01/27/22 11:10 O2 Flow Rate 4 01/26/22 08:57 FiO2 30 01/26/22 06:15 01/26/22 01/27/22 01/27/22 22:59 06:59 14:59 Intake Total 480 / 880 760 / 760 Output Total 1400 / 1400 1900 / 3300 Balance -920 / -520 -1900 / -2420 760 / 760 Weight last 48 hrs Weight 64.047 kg Weight 66.179 kg Weight 68.039 kg Physical Exam Narrative: Patient is awake and alert Edema slightly improved She is doing well on room air Crackles improved however rhonchi appreciated No conversational dyspnea She is eating breakfast No abdominal pain Very pleasant cooperative Urinary Catheter Management: Sanders: Cath Placed During This Visit: no Reason for Continuing Indwelling Catheter: Accurate Measurement of Urinary Output in Critically Ill Patients Data : 01/27/22 05:10 01/27/22 05:10 Micro: Microbiology 01/25/22 17:40 Urine Culture - Final Urine,Clean Catch 01/25/22 00:00 MRSA Culture - Final Nose 01/25/22 13:55 Blood Culture - Preliminary Blood NEGATIVE TO DATE 01/25/22 14:05 Blood Culture - Preliminary Blood NEGATIVE TO DATE A&P Assessment and plan (1) Nephrotic syndrome: Status: Acute (2) Acute kidney injury superimposed on chronic kidney disease: Status: Acute (3) COVID-19: Status: Acute (4) Long-term insulin use: Status: Acute (5) Recurrent UTI: Status: Acute (6) Anemia: Status: Acute (7) Diabetes mellitus: Status: Acute Plan COVID-19 pneumonia: Improving Currently on room air Wheezing improved however mild rhonchi present No leukocytosis Afebrile Finish 5 days of remdesivir and then discontinue I will also discontinue her Decadron tomorrow if she is doing fine Insulin-dependent diabetes Blood sugar well controlled She had hypoglycemic event however no change in mentation, I have reduced her insulin regimen Proteinuria, anasarca Nephrotic syndrome? Nephro consulted I have started 24-hour urine collection for protein quantification Patient nephro recommendations At [place] her creatinine was 2.9 currently creatinine is around 2.4 new baseline Anxiety: Well-controlled Polysubstance abuse: No active Right lung cavitary lesion CT scan of chest did not show any worsening other than COVID-19 related groundglass opacities Recurrent UTI continue antibiotics No signs of bacteremia, no fever, leukocytosis improved No signs of C. difficile colitis Full code Cardiac carb diet BiPAP overnight for as needed use Transfer out of ICU Attestations Medical Necessity Statement*: Discharge in next 48 -72hrshours if clinically doing well Time Spent in Patient Care: 40 Coding Level of Care Code Acute Animal Pathology Teacher for [facility] Fwd Diagnoses Nephrotic syndrome N04.9 Acute kidney injury superimposed on chronic kidney disease N17.9; N18.9 COVID-19 U07.1 Long-term insulin use Z79.4 Recurrent UTI N39.0 Anemia D64.9 Diabetes mellitus E11.9
[2022-01-27 15:21] LABS: Glucose Point of Care 205 mg/dL (70-110)
--- NOTE | 2022-01-27 15:58 | PC.NURSE ---
Patient moved to [facility] room 270 via wheelchair accompanied by this nurse. Patient assisted to [facility] on arrival. 24 Hour urine specimen sent with patient. ROLA Hernandez at bedside at time of transferred. Patient noted to be A&O x4 at time of transfer.
[2022-01-27 17:26] LABS: Glucose Point of Care 247 mg/dL (70-110)
[2022-01-27] MEDS: remdesivir 100 MG in sodium chloride 0.9% (100 ml) 80 ML IV (17:37)
[2022-01-27 18:57] LABS: Urine Creatinine 16 mg/dL (28-217)
[2022-01-27 19:02] LABS: Creatinine Urine, Random 15 mg/dL (28-217); Microalbumin Random Urine 25 ug/dL (0-20)
[2022-01-27 19:11] LABS: Microalbum Creatinine Ratio Ur 1667 mg/dL (0-20)
[2022-01-27 19:14] LABS: Total Volume Urine 4225 ml
[2022-01-27 19:27] LABS: Urine Total Protein 49.9 mg/dL (0-150)
[2022-01-27 19:32] LABS: Total Volume, Urine 4225 mL
[2022-01-27 19:33] LABS: Urine Total Protein 24 Hour 2108.3 mg/24hr (0-150)
[2022-01-27 21:20] LABS: Glucose Point of Care 412 mg/dL (70-110)
[2022-01-28] VITALS (12 sets, daily range): BP systolic 146–169; BP diastolic 80–96; PULSE 76–86; RESP 14–19; TEMP 36.7–37.1; O2SAT 96–99
[2022-01-28] MEDS: morphine IR 15 mg Tablet PO ×4 (03:17→23:32)
[2022-01-28] MEDS: heparin 5,000 unit/mL INJ 1 mL 5000 UNIT SUBCUT ×3 (03:18→17:49)
[2022-01-28 05:28] LABS: Basophils % 0.3 %; Hemoglobin 8.7 g/dL (11.5-15.3); Lymphocytes # 1.1 10^3/uL (0.8-4.8); Lymphocytes % 17.3 %; Mean Corpuscular HGB Conc 31.1 g/dL (30.0-36.0); Mean Corpuscular Hemoglobin 26.3 pg (28.0-34.0); Mean Corpuscular Volume 84.6 fl (81-99); Mean Platelet Volume 10.2 fL (7.4-10.4); Monocytes # 0.3 10^3/uL (0.2-0.9); Monocytes % 4.8 %; Neutrophils # 4.78 10^3/uL (1.8-7.7); Neutrophils % 77.3 %; Nucleated Red Blood Cells % 0 %; Platelet Count 313 10^3/cmm (130-400); Red Blood Count 3.31 10^6/uL (4.1-5.3); Red Cell Distribution Width 17.5 % (12.1-15.1); White Blood Count 6.2 10^3/uL (4.0-10.0)
[2022-01-28 05:53] LABS: Alanine Aminotransferase 21 U/L (0-33); Albumin Level 2.5 g/dL (3.5-5.2); Alkaline Phosphatase 147 IU/L (35-105); Aspartate Amino Transferase 15 U/L (0-32); Blood Urea Nitrogen 62 mg/dL (6-20); Calcium 8.8 mg/dL (8.5-10.5); Carbon Dioxide 24 mmol/L (22-29); Chloride 100 mmol/L (98-107); Globulin 4.2 g/dL (1.3-4.6); Glomerular Filtration Rate 21.9 mL/min (90-130); Glucose 388 mg/dL (65-115); Osmolality Calculated 320 mOsm/kg (285-295); Sodium 138 mmol/L (136-145); Total Bilirubin 0.2 mg/dL (0.15-1.2); Total Protein 6.7 g/dL (6.6-8.7)
[2022-01-28 05:58] LABS: Anion Gap 18.8 (5-19); Potassium 4.8 mmol/L (3.5-5.1)
[2022-01-28] MEDS: insulin glargine 100 units/1 mL 10 UNIT SUBCUT ×2 (06:08→17:49)
[2022-01-28] MEDS: FUROsemide 10 mg/mL SDV 10mL 60 MG IVP (06:08)
[2022-01-28 06:39] LABS: Glucose Point of Care 407 mg/dL (70-110)
--- NOTE | 2022-01-28 07:08 | PM.PN ---
Subjective Subjective: out of ICU. Feels weak Vitals/I&O/Wt Last Vital Signs Temp 98.3 F 01/28/22 04:00 Pulse 76 01/28/22 04:00 Resp 17 01/28/22 04:00 BP 162/94 01/28/22 04:00 Pulse Ox 96 01/28/22 04:00 O2 Del Method 01/27/22 20:12 O2 Flow Rate 4 01/26/22 08:57 FiO2 30 01/26/22 06:15 01/27/22 01/28/22 01/28/22 22:59 06:59 14:59 Intake Total 560 / 1800 1360 / 3160 Output Total 500 / 1900 2550 / 4450 Balance 60 / -100 -1190 / -1290 Weight last 48 hrs Weight 62.777 kg Physical Exam Const: COMMON NORMALS: no acute distress and alert Extremity: COMMON NORMALS: no pedal edema Neuro: SENSORIUM/ORIENTATION: Yes alert Urinary Catheter Management: Crowder: Cath Placed During This Visit: no Reason for Continuing Indwelling Catheter: Accurate Measurement of Urinary Output in Critically Ill Patients Data : 01/28/22 04:48 01/28/22 04:48 Other Labs: 24h urine protein 2108 mg urine protein/Crr atio 3326 mg/g urine albumin/Cr ratio 1666 mg/g complements normal Micro: Microbiology 01/25/22 17:40 Urine Culture - Final Urine,Clean Catch A&P Assessment and plan (1) Nephrotic syndrome: Seen via telemedicine with assistance of RN at bedside. 1. Acute kidney injury. Normal serum Cr and no overt albuminuria 1 year ago. Good urine output. Current eGFR 25 ml/min is overestimating renal function 2. Nephrotic syndrome may be due to diabetic nephropathy, although she should have had albuminuria 1 year ago if this was the case. Possible secondary glomerulopathy related to drug use, infection 3. COVID pneumonia receiving remdesivir and decadron. Oxygenating well on room air. 4. Poorly controlled DM. Hyperglycemia worse due to steroids. Recommend increase insulin. 5. Anemia, adequate iron 6. Pyuria, urine culture no growth. Recent e.coli urosepsis, on antibiotics Recommend: Remove crowder. Change to oral diuretic. F/U pending lab tests. Status: Acute Attestations Medical Necessity Statement*: per primary service Time Spent in Patient Care: 16 - 35 minutes Coding Level of Care Code Acute Supervisor Paper Testing for g Fwd Diagnoses Nephrotic syndrome N04.9
[2022-01-28] MEDS: pantoprazole DR 40 mg Tablet PO (08:20)
[2022-01-28] MEDS: insulin lispro 100 unit/1 mL SUBCUT ×3 (08:21→17:49)
[2022-01-28] MEDS: sennosides-docusate Tablet 1 TAB PO (08:21)
[2022-01-28] MEDS: tamsulosin 0.4 mg Capsule PO (08:21)
[2022-01-28] MEDS: dexamethasone 4 mg Tablet 6 MG PO (08:21)
[2022-01-28 11:12] LABS: Glucose Point of Care 293 mg/dL (70-110)
--- NOTE | 2022-01-28 13:06 | PM.PN ---
Subjective Subjective: This morning patient is on room air Feeling fine I did tell her that tomorrow we will discharge her No signs of nephrotic syndrome Most likely diabetes related nephrosclerosis She does not look fluid overloaded today Lung crackles improved She is endorsing feeling better as well No overnight events Sanders catheter to be removed today Vitals/I&O/Wt Last Vital Signs Temp 98.6 F 01/28/22 12:00 Pulse 82 01/28/22 12:00 Resp 16 01/28/22 12:00 BP 146/85 01/28/22 12:00 Pulse Ox 97 01/28/22 12:00 O2 Del Method 01/28/22 12:00 O2 Flow Rate 4 01/26/22 08:57 FiO2 30 01/26/22 06:15 01/27/22 01/28/22 01/28/22 22:59 06:59 14:59 Intake Total 560 / 1800 1360 / 3160 200 / 200 Output Total 500 / 1900 2550 / 4450 300 / 300 Balance 60 / -100 -1190 / -1290 -100 / -100 Weight last 48 hrs Weight 62.777 kg Physical Exam Narrative: Patient is doing well on room air Crackles of the lungs improved Mild rhonchi No active distress Abdomen soft Edema improving Sanders catheter draining clear urine Nonfocal neuro exam Urinary Catheter Management: Sanders: Cath Placed During This Visit: yes, but has since been removed by the nurse Reason for Continuing Indwelling Catheter: Decision to DC Catheter Date Urinary Catheter Removed: 01/28/22 Time Urinary Catheter Discontinued: 12:33 Data : 01/28/22 04:48 01/28/22 04:48 Micro: Microbiology 01/25/22 17:40 Urine Culture - Final Urine,Clean Catch A&P Assessment and plan (1) Acute kidney injury superimposed on chronic kidney disease: Status: Acute (2) Abdominal pain: Status: Acute Qualifiers: Abdominal location: generalized Qualified Code(s): R10.84 - Generalized abdominal pain (3) COVID-19: Status: Acute (4) Drug abuse: Status: Acute (5) Anemia: Status: Acute (6) Diabetes mellitus: Status: Acute (7) Recurrent UTI: Status: Acute Plan COVID-19 related pneumonia Her last dose of Decadron and remdesivir will be 01/29 She is clinically improved remarkably. Afebrile Not requiring oxygen Will do home O2 eval before discharge Anasarca Diabetes related nephrosclerosis Baseline creatinine seems to be around 2 5-2.9 Appreciate nephro recommendations No need of steroids, nephrotic syndrome ruled out Continue low-dose Lasix Hyperkalemia: Improved Polysubstance abuse: Patient counseled, Right lung cavitary lesion, recently she was worked up for TB, it was ruled out, fungal smears were ordered at [facility], records requested for final culture report Plan to discharge her tomorrow Afebrile Cultures negative DVT prophylaxis Heparin Consistent carb diet for diabetes Remove Sanders catheter Attestations Medical Necessity Statement*: Discharge tomorrow if stable Time Spent in Patient Care: 30 Coding Level of Care Code Acute Home Care Provider for Chg Fwd Diagnoses Acute kidney injury superimposed on chronic kidney disease N17.9; N18.9 Abdominal pain R10.84 Abdominal location: generalized COVID-19 U07.1 Drug abuse F19.10 Anemia D64.9 Diabetes mellitus E11.9 Recurrent UTI N39.0
[2022-01-28 17:30] LABS: Glucose Point of Care 304 mg/dL (70-110)
[2022-01-28] MEDS: remdesivir 100 MG in sodium chloride 0.9% (100 ml) 80 ML IV (17:49)
[2022-01-28] MEDS: morphine 4 mg/mL SDV 1 mL 2 MG IVP (20:58)
[2022-01-28 21:28] LABS: Glucose Point of Care 307 mg/dL (70-110)
[2022-01-29] MEDS: heparin 5,000 unit/mL INJ 1 mL 5000 UNIT SUBCUT (03:12)
[2022-01-29 03:50] VITALS: BP 163/89; PULSE 82; RESP 16; TEMP 36.8; O2SAT 96
[2022-01-29 04:36] LABS: Basophils % 0.1 %; Hematocrit 27.8 % (37.0-47.0); Hemoglobin 8.4 g/dL (11.5-15.3); Lymphocytes # 1.1 10^3/uL (0.8-4.8); Lymphocytes % 15.1 %; Mean Corpuscular HGB Conc 30.2 g/dL (30.0-36.0); Mean Corpuscular Hemoglobin 25.9 pg (28.0-34.0); Mean Corpuscular Volume 85.8 fl (81-99); Mean Platelet Volume 12.1 fL (7.4-10.4); Monocytes # 0.4 10^3/uL (0.2-0.9); Monocytes % 5.1 %; Neutrophils # 5.86 10^3/uL (1.8-7.7); Neutrophils % 79.3 %; Nucleated Red Blood Cells % 0 %; Platelet Count 207 10^3/cmm (130-400); Red Blood Count 3.24 10^6/uL (4.1-5.3); Red Cell Distribution Width 18.1 % (12.1-15.1); White Blood Count 7.4 10^3/uL (4.0-10.0)
[2022-01-29 05:07] LABS: Blood Urea Nitrogen 74 mg/dL (6-20); Calcium 8.4 mg/dL (8.5-10.5); Carbon Dioxide 22 mmol/L (22-29); Chloride 99 mmol/L (98-107); Glomerular Filtration Rate 21.9 mL/min (90-130); Glucose 473 mg/dL (65-115); Osmolality Calculated 329 mOsm/kg (285-295); Sodium 138 mmol/L (136-145)
[2022-01-29 05:13] LABS: Anion Gap 22.2 (5-19); Potassium 5.2 mmol/L (3.5-5.1)
[2022-01-29] MEDS: insulin glargine 100 units/1 mL 10 UNIT SUBCUT (05:35)
[2022-01-29 05:38] VITALS: BMI 26.4
[2022-01-29 06:41] LABS: Glucose Point of Care 425 mg/dL (70-110)
[2022-01-29 06:45] VITALS: RESP 14
[2022-01-29] MEDS: morphine 4 mg/mL SDV 1 mL 2 MG IVP (06:45)
--- NOTE | 2022-01-29 07:04 | PM.PN ---
Subjective Subjective: feels better. no n/v/f/c/ebnavides/d. states dec edema. Medications: Reviewed: Yes Medication Review Details: Current Medications Acetaminophen (Acetaminophen 500 Mg Tablet) 500 mg PO Q4H PRN PRN Reason: fever Albuterol/Ipratropium (Ipratropium-Albuterol 3 Ml Neb) 3 ml INHALATION Q6H PRN PRN Reason: SHORTNESS OF BREATH Dextrose (Dextrose 50% Syringe 50 Ml) 25 ml IVP ONCE PRN; Protocol PRN Reason: hypoglycemia protocol Dextrose (Dextrose 50% Syringe 50 Ml) 50 ml IVP PRN PRN; Protocol PRN Reason: hypoglycemia protocol Last Admin: 01/26/22 12:01 Dose: 50 ml Furosemide (Furosemide 40 Mg Tablet) 40 mg PO DAILY@0800 [facility] Glucagon (Glucagon 1 Mg/Ml Inj 1 Ml) 1 mg IM ONCE PRN; Protocol PRN Reason: Adult Acute Hypoglycemia Prot. Heparin Sodium (Porcine) (Heparin 5,000 Unit/Ml Inj 1 Ml) 5,000 unit SUBCUT Q8H [facility] Last Admin: 01/29/22 03:12 Dose: 5,000 unit Dextrose (D5w) 500 mls @ 100 mls/hr IV ONCE PRN; Protocol PRN Reason: Adult Acute Hypoglycemia Prot Remdesivir 100 mg/ Sodium (Chloride) 80 mls @ 100 mls/hr IV Q24H [facility] Stop: 01/29/22 18:47 Last Infusion: 01/28/22 18:46 Dose: Infused Insulin Glargine (Insulin Glargine 100 Units/1 Ml) 10 unit SUBCUT BID@0600,1800 [facility] Last Admin: 01/29/22 05:35 Dose: 10 unit Insulin Human Lispro (Insulin Lispro 100 Unit/1 Ml) 0 unit SUBCUT TIDWM [facility]; Protocol Last Admin: 01/28/22 17:49 Dose: 10 unit Lorazepam (Lorazepam 0.5 Mg Tablet) 0.25 mg PO TID PRN PRN Reason: ANXIETY Last Admin: 01/26/22 23:53 Dose: 0.25 mg Morphine Sulfate (Morphine 4 Mg/Ml Sdv 1 Ml) 2 mg IVP Q4H PRN PRN Reason: SEVERE PAIN Last Admin: 01/29/22 06:45 Dose: 2 mg Morphine Sulfate (Morphine Ir 15 Mg Tablet) 15 mg PO Q6H PRN PRN Reason: pAIN Last Admin: 01/28/22 23:32 Dose: 15 mg Ondansetron HCl (Ondansetron 2 Mg/Ml Sdv 2 Ml) 4 mg IVP Q6H PRN PRN Reason: NAUSEA AND VOMITING Pantoprazole Sodium (Pantoprazole Dr 40 Mg Tablet) 40 mg PO DAILY [facility] Last Admin: 01/28/22 08:20 Dose: 40 mg Senna/Docusate Sodium (Sennosides-Docusate Tablet) 1 tab PO DAILY [facility] Last Admin: 01/28/22 08:21 Dose: 1 tab Tamsulosin HCl (Tamsulosin 0.4 Mg Capsule) 0.4 mg PO DAILY [facility] Last Admin: 01/28/22 08:21 Dose: 0.4 mg Vitals/I&O/Wt Last Vital Signs Temp 98.2 F 01/29/22 03:50 Pulse 82 01/29/22 03:50 Resp 14 01/29/22 06:45 BP 163/89 01/29/22 03:50 Pulse Ox 96 01/29/22 03:50 O2 Del Method 01/28/22 19:28 O2 Flow Rate 4 01/26/22 08:57 FiO2 30 01/26/22 06:15 01/28/22 01/29/22 01/29/22 22:59 06:59 14:59 Intake Total 260 / 460 360 / 820 Output Total 400 / 700 400 / 1100 Balance -140 / -240 -40 / -280 Weight last 48 hrs Weight 61.32 kg Weight 62.777 kg Physical Exam Narrative: vs noted comfortable, NARD heent- nc/at, eomi, anicteric neck supple lungs celar heart reg abd soft,nt, nd + bs ext min edema Urinary Catheter Management: Sanders: Cath Placed During This Visit: yes, but has since been removed by the nurse Reason for Continuing Indwelling Catheter: Decision to DC Catheter Date Urinary Catheter Removed: 01/28/22 Time Urinary Catheter Discontinued: 12:33 Data : 01/29/22 03:25 01/29/22 03:25 A&P Assessment and plan (1) Acute kidney injury superimposed on chronic kidney disease: 36 yr old female COVID-19 + PNA, polysubstance use, rt lung cavitary lesion, anasarca. 1. 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 htn- no khris-i/ arb/ aldactone w/ hyperkalemia 3. dm control per medicine - as glucose improved, k should improve -wean off decadron hagb a1c =11.9 tp 13 4. COVID-pna per medicine seen and examined w/ rN -telehealth visit time spent 30 min Status: Acute Plan see above Attestations Medical Necessity Statement*: per medicine Time Spent in Patient Care: 16 - 35 minutes (>than 50% of time spent in counselling and/or direct pt care on unit). Coding Level of Care Code Acute Machine Ii Coremaker for Reji Chandler Diagnoses Acute kidney injury superimposed on chronic kidney disease N17.9; N18.9
[2022-01-29 07:34] VITALS: BP 160/97; PULSE 77; RESP 17; TEMP 36.6; O2SAT 98
[2022-01-29] MEDS: tamsulosin 0.4 mg Capsule PO (08:40)
[2022-01-29] MEDS: pantoprazole DR 40 mg Tablet PO (08:40)
[2022-01-29] MEDS: sennosides-docusate Tablet 1 TAB PO (08:41)
[2022-01-29] MEDS: FUROsemide 20 mg Tablet PO (08:41)
[2022-01-29] MEDS: insulin lispro 100 unit/1 mL SUBCUT ×2 (08:42→13:28)
[2022-01-29] MEDS: sodium polystyrene sulfonate 15 gm/60 mL Btl PO (08:42)
[2022-01-29 08:53] VITALS: PULSE 79; RESP 16; O2SAT 97
[2022-01-29 11:14] LABS: Glucose Point of Care 307 mg/dL (70-110)
--- NOTE | 2022-01-29 11:25 | P.DS_ITS ---
Discharge Providers Date of Admission: 01/25/22 18:56 Date of Discharge: January 29, 2022 Attending Provider at Admission: Austin Che MD Attending Provider at Discharge: Austin Che MD Primary Care Provider: SUZANNE Dias Diagnoses at Discharge Discharge Diagnosis (1) Acute kidney injury superimposed on chronic kidney disease: Status: Acute Reason for Visit Reason for Visit: CP/SOB Hospital Course Hospital Course 36-year female who has multiple comorbid conditions, left lower lobectomy secondary to cavitary pneumonia, polysubstance abuse, insulin-dependent diabetes, who was recently discharged from [facility] after management of ATN, gram-negative bacteremia, gram-positive cocci were also positive in the blood however I could not get the final culture report from [facility], she was given Levaquin, she could not tolerate because of recurrent emesis it was switched to Zyvox, it was 1 month supply. She only took 10 days. As soon as she returned home she started getting worse, she smoked methamphetamine via a pipe that she is sharing with her boyfriend. She was flown to our ER for her worsening hypoxia, initially she was on 15 L nonrebreather mask and required BiPAP. He was diagnosed with COVID-19 pneumonia in the hospital. She received Decadron and remdesivir admitted to ICU. She turned around and did well. We were able to wean her down to room air in next 2 to 3 days. She finished Decadron remdesivir 4-day regimen and she was discharged on 01/29. She did not qualify for oxygen. Patient is stating that she has enough supply of insulin at home, I have given her albuterol prescription at the time of discharge. I will give her referral to see Dr. Johnson outpatient. Please note I consulted nephrology to rule out nephrotic syndrome because she had anasarca at the time of presentation. Preserved ejection fraction on echo with diastolic heart failure. She was diuresed aggressively which improved lung crackles and we were able to wean her oxygen down to room air. 24-hour urine collection did not show significant proteinuria she did not qualify for nephrotic syndrome. Her baseline creatinine seems to be around 2.5-2.9. From [facility] she was discharged with creatinine 2.9. From our hospital she is being discharged with creatinine 2.5 she has received Kayexalate before discharge. She seems to be having diabetic nephrosclerosis glomerular pathology fire boss did not recommend biopsy at this time. Also note that at [facility] for right lung cavitary lesion QuantiFERON test was done which was unremarkable, fungal serology was pending at the time of discharge. Physical Exam Narrative: Patient is doing well on room air Crackles of the lungs improved Mild rhonchi No active distress Abdomen soft Edema improving Sanders catheter draining clear urine Nonfocal neuro exam ? Urinary Catheter Management: Sanders: Cath Placed During This Visit: yes, but has since been removed by the nurse Reason for Continuing Indwelling Catheter: Decision to DC Catheter Date Urinary Catheter Removed: 01/28/22 Time Urinary Catheter Discontinued: 12:33 Discharge Data Studies Completed and Pending Completed Studies During Hospitalization Category [place] [id number] Routine Cat Scan 01/26/22 10:09 Completed XR chest 1V portable [id number] Stat Exams 01/25/22 13:38 Completed CV. echo complete* [id number] Routine Ultrasound 01/26/22 10:09 Completed Pending at discharge Category Date Time Status CHANELLE Screen w/ Reflex Routine Lab 01/27/22 12:47 Received Anti-Neutrophil Cytoplasmic AB Routine Lab 01/27/22 12:47 Received Blood Culture Stat Lab 01/25/22 13:55 Results Complement Total (CH50) Routine Lab 01/29/22 10:52 Ordered Comprehensive Metabolic Panel AM LABS Lab 01/30/22 04:00 Ordered Comprehensive Metabolic Panel AM LABS Lab 01/31/22 04:00 Ordered Comprehensive Metabolic Panel AM LABS Lab 02/01/22 04:00 Ordered Cryoglobulins Qualitative Routine Lab 01/27/22 12:47 Received KAPPA/LAMBDA LIGHT FREE SERUM Routine Lab 01/27/22 12:47 Received Magnesium AM LABS Lab 01/30/22 04:00 Ordered Magnesium AM LABS Lab 01/31/22 04:00 Ordered Magnesium AM LABS Lab 02/01/22 04:00 Ordered Phosphorus AM LABS Lab 01/30/22 04:00 Ordered Phosphorus AM LABS Lab 01/31/22 04:00 Ordered Phosphorus AM LABS Lab 02/01/22 04:00 Ordered Protein Electrophoresis, 24 HR Routine Lab 01/27/22 17:45 Received RPR with Reflex to Titer Routine Lab 01/27/22 12:47 Received SPEP [Total Protein Electrophoresis] Routine Lab 01/26/22 13:30 Results Radiology Impressions Chest X-Ray 01/25/22 13:38 Impression: 1. Development of bilateral patchy opacities throughout both lungs which may represent pneumonia or pulmonary vascular congestion. 2. Cardiomegaly and small effusions which can be seen with congestive heart failure. Chest/Abdomen/Pelvis CT 01/26/22 10:09 IMPRESSION: 1. Imaging findings of multifocal pneumonia with bilateral parapneumonic effusions. Pneumonia with superimposed pulmonary edema can also have this appearance. 2. Imaging features can be seen with (COVID-19) pneumonia, though are nonspecific and can occur with a variety of infectious and noninfectious processes. 3. Anasarca. IMPRESSION: 1. Anasarca, manifested by subcutaneous edema, small amount of ascites and bilateral pleural effusions. 2. No acute intra-abdominal or intrapelvic pathology. Laboratory Results WBC 7.4 10^3/uL (4.0-10.0) 01/29/22 03:25 RBC 3.24 10^6/uL (4.1-5.3) L 01/29/22 03:25 Hgb 8.4 g/dL (11.5-15.3) L 01/29/22 03:25 Hct 27.8 % (37.0-47.0) L 01/29/22 03:25 MCV 85.8 fl (81-99) 01/29/22 03:25 MCH 25.9 pg (28.0-34.0) L 01/29/22 03:25 MCHC 30.2 g/dL (30.0-36.0) 01/29/22 03:25 RDW 18.1 % (12.1-15.1) H 01/29/22 03:25 Plt Count 207 10^3/cmm (130-400) D 01/29/22 03:25 MPV 12.1 fL (7.4-10.4) H 01/29/22 03:25 Neut % (Auto) 79.3 % 01/29/22 03:25 Lymph % (Auto) 15.1 % 01/29/22 03:25 [place] % (Auto) 5.1 % 01/29/22 03:25 Eos % (Auto) 0.0 % 01/29/22 03:25 Baso % (Auto) 0.1 % 01/29/22 03:25 Neut # (Auto) 5.86 10^3/uL (1.8-7.7) 01/29/22 03:25 Lymph # (Auto) 1.1 10^3/uL (0.8-4.8) 01/29/22 03:25 [place] # (Auto) 0.4 10^3/uL (0.2-0.9) 01/29/22 03:25 Eos # (Auto) 0.0 10^3/uL (0.0-0.8) 01/29/22 03:25 Baso # (Auto) 0.0 10^3/uL (0.0-0.1) 01/29/22 03:25 Nucleated RBC % (auto) 0 % 01/29/22 03:25 Nucleated RBCs # 0.0 /100WBC 01/29/22 03:25 D-Dimer 1.88 ug/mIFEU (0-0.59) H 01/25/22 14:05 Specimen Type Arterial 01/26/22 05:26 Sample Site Brachial, right 01/26/22 05:26 ABG pH 7.32 (7.35-7.45) L 01/26/22 05:26 ABG pCO2 41.8 mmHg (35-45) 01/26/22 05:26 ABG pO2 87.3 mmHg (80.0-100.0) 01/26/22 05:26 ABG HCO3 21.5 mmol/L (22-26) L 01/26/22 05:26 ABG O2 Saturation 99.4 01/25/22 20:25 ABG Base Excess -4.3 mmol/L (-2.0-2.0) L 01/26/22 05:26 Braulio Test N/a 01/26/22 05:26 A-a O2 Gradient Not Reportable 01/25/22 20:25 Hematocrit 25.4 % (37-47) L 01/26/22 05:26 Hgb O2 Saturation 97.2 % (95-100) 01/25/22 20:25 Carboxyhemoglobin 1.3 %THgb (0.4-20.1) 01/25/22 20:25 Methemoglobin 0.9 % (0.4-1.5) 01/25/22 20:25 Total Hemoglobin 9.2 g/dL (12-16) L 01/25/22 20:25 Sodium 141.0 mmol/L (131-143) 01/25/22 20:25 Potassium 5.1 mmol/L (3.5-5.0) H 01/25/22 20:25 Glucose 322.0 mg/dL (70-115) H 01/25/22 20:25 Ionized Calcium 1.3 mmol/L (1.1-1.4) 01/25/22 20:25 O2 Delivery Device Bipap 01/26/22 05:26 O2 Liters/Min 5.0 % 01/25/22 20:25 FiO2 28.0 % 01/26/22 05:26 Supervisor [employer] Rem[employer] ID Kevin 01/26/22 05:26 Sodium 138 mmol/L (136-145) 01/29/22 03:25 Potassium 5.2 mmol/L (3.5-5.1) H 01/29/22 03:25 Chloride 99 mmol/L (98-107) 01/29/22 03:25 Carbon Dioxide 22 mmol/L (22-29) 01/29/22 03:25 Anion Gap 22.2 (5-19) H 01/29/22 03:25 BUN 74 mg/dL (6-20) H 01/29/22 03:25 Creatinine 2.5 mg/dL (0.5-0.9) H 01/29/22 03:25 GFR Calculation 21.9 mL/min (90-130) L 01/29/22 03:25 Glucose 473 mg/dL (65-115) H 01/29/22 03:25 POC Glucose 307 mg/dL (70-110) H 01/29/22 10:54 Estimat Average Glucose 295 01/26/22 04:05 Hemoglobin A1c 11.9 % (4.0-6.0) H 01/26/22 04:05 Calculated Osmolality 329 mOsm/kg (285-295) H 01/29/22 03:25 Lactic Acid 1.3 mmol/L (0.5-2.2) 01/25/22 14:05 Calcium 8.4 mg/dL (8.5-10.5) L 01/29/22 03:25 Phosphorus 4.4 mg/dL (2.5-4.5) 01/26/22 04:05 Magnesium 1.5 mg/dL (1.7-2.3) L 01/26/22 04:05 Total Bilirubin 0.2 mg/dL (0.15-1.2) 01/28/22 04:48 AST 15 U/L (0-32) 01/28/22 04:48 ALT 21 U/L (0-33) 01/28/22 04:48 Alkaline Phosphatase 147 IU/L (35-105) H 01/28/22 04:48 C-Reactive Protein 21.5 mg/L (0.0-4.9) H 01/26/22 04:05 Total Protein 6.7 g/dL (6.6-8.7) 01/28/22 04:48 Albumin 2.5 g/dL (3.5-5.2) L 01/28/22 04:48 Globulin 4.2 g/dL (1.3-4.6) 01/28/22 04:48 Lipase 67 U/L (13-60) H 01/25/22 14:05 Procalcitonin 0.13 ng/mL (0-0.5) 01/25/22 14:05 Urine Color Yellow (Yellow) 01/25/22 17:40 Urine Appearance Hazy (CLEAR) A 01/25/22 17:40 Urine pH 5 (5-7) 01/25/22 17:40 Ur Specific [place] 1.015 (1.005-1.030) 01/25/22 17:40 Urine Protein 3+ (Negative) H 01/25/22 17:40 Urine Glucose (UA) 4+ (Normal) H 01/25/22 17:40 Urine Ketones Negative (Negative) 01/25/22 17:40 Urine Blood 3+ (Negative) H 01/25/22 17:40 Urine Nitrate Negative (Negative) 01/25/22 17:40 Urine Bilirubin Neg (Negative) 01/25/22 17:40 Urine Urobilinogen Norm mg/dL (Negative) 01/25/22 17:40 Ur Leukocyte Esterase Negative (Negative) 01/25/22 17:40 Urine RBC 5-10 /hpf (0-2) H 01/25/22 17:40 Urine WBC Too numerous to cnt /hpf (0-5) H 01/25/22 17:40 Ur Squamous Epith Cells 0-4 /hpf (0-5) H 01/25/22 17:40 Amorphous Sediment Not Reportable 01/25/22 17:40 Urine Bacteria None /hpf (NONE) 01/25/22 17:40 Urine Yeast 1+ /hpf H 01/25/22 17:40 Ur Random Microalbumin 25 ug/dL (0-20) H 01/26/22 17:45 Urine Total Volume 4225 mL 01/26/22 17:45 Urine Total Volume 4225 ml 01/26/22 17:45 Urine Creatinine 15 mg/dL (28-217) L 01/26/22 17:45 Urine Creatinine 16 mg/dL (28-217) L 01/26/22 17:45 Ur Creatinine 24 Hour 676.0 mg/dL (601-1689) 01/26/22 17:45 Microalb/Creat Ratio 1667 mg/dL (0-20) H 01/26/22 17:45 Ur Total Protein 24 Hr 2108.3 mg/24hr (0-150) H 01/26/22 17:45 Urine Total Protein 49.9 mg/dL (0-150) 01/26/22 17:45 Serum Ketones Negative (Negative) 01/25/22 14:05 Complement C3 136 mg/dL (90-180) 01/27/22 05:10 Complement C4 28 mg/dL (10-40) 01/27/22 05:10 Tot Complement (CH50) Cancelled 01/27/22 12:47 Vitals Last Vital Signs Temp 97.9 F 01/29/22 07:34 Pulse 79 01/29/22 08:53 Resp 16 01/29/22 08:53 BP 160/97 01/29/22 07:34 Pulse Ox 97 01/29/22 08:53 O2 Del Method 01/29/22 08:53 O2 Flow Rate 4 01/26/22 08:57 FiO2 30 01/26/22 06:15 Discharge Plan Discharge Patient Disposition: Home Condition: Stable Prescriptions: New furosemide 20 mg Tablet 20 mg PO DAILY@0800 PRN (Reason: Weight gain) Qty: 30 0RF Lantus Solostar U-100 Insulin 100 unit/mL (3 mL) insulin pen 15 unit SUBCUT BID Qty: 15 3RF albuterol sulfate 90 mcg/actuation HFA aerosol inhaler 2 inh inhalation Q8H PRN (Reason: shortness of breath or wheezing) Qty: 8.5 5RF Continued Glucagon (HCl) Emergency Kit 1 mg recon soln 1 mg SUBCUT Q20M PRN (Reason: hypoglycemia) Qty: 3 3RF Rx Instructions: until target blood sugar attained hydrocodone-acetaminophen 5-325 mg tablet 1 tab PO Q6H PRN (Reason: pain) Qty: 14 0RF ondansetron 4 mg tablet,disintegrating 4 mg PO Q6H PRN (Reason: nausea and vomiting) Qty: 14 0RF diphenhydramine HCl [Benadryl Allergy] 25 mg Tablet 25 mg PO BID insulin aspart U-100 [Novolog Flexpen U-100 Insulin] 100 unit/mL (3 mL) Insulin Pen See Rx Instructions .ROUTE .COMPLEX Rx Instructions: SLIDING SCALE subcutaneously TID tamsulosin 0.4 mg Capsule 0.4 mg PO DAILY Qty: 30 0RF pantoprazole 40 mg Tablet,Delayed Release (Dr/Ec) 40 mg PO DAILY Qty: 30 0RF amoxicillin-pot clavulanate 875-125 mg tablet 1 tab PO BID Qty: 10 0RF insulin glargine [Lantus Solostar U-100 Insulin] 100 unit/mL (3 mL) insulin pen 15 unit SUBCUT BID@0600,1800 Qty: 3 0RF Discharge Orders: Discharge Order (Routine); Ordered 01/29/22 Ordered By: Austin Che Referrals: Elizabeth Dougherty FNP [Primary Care Provider] - 02/14/22 11:00 am SimirTony MD [Physician] - None Deyvi Johnson MD [Referring] - 1 week Patient Instructions: Anemia, Urinary Tract Infection in Women (GEN), COVID-19 (Coronavirus Disease 2019) (DC), Opioid Safety Discharge Attestations Time Spent in Discharge Care*: less than 30 min Status at Discharge: Cognitive status at discharge: cognitively intact , Behavioral status at discharge: cooperative and independent in ADL's , Quality Metrics Clinical Quality Measures [ No reported AMI, CVA or VTE this stay] Coding Level of Care Code Acute Chg FW DC note Diagnoses Acute kidney injury superimposed on chronic kidney disease N17.9; N18.9
[2022-01-29 11:39] VITALS: BP 144/86; PULSE 82; RESP 17; TEMP 36.9; O2SAT 98
[2022-01-29 16:12] LABS: ALBUMIN 2.5 g/dL (3.8-4.8); ALPHA 1 GLOBULIN 0.5 g/dL (0.2-0.3); ALPHA 2 GLOBULIN 0.9 g/dL (0.5-0.9); BETA 1 GLOBULIN 0.4 g/dL (0.4-0.6); BETA 2 GLOBULIN 0.6 g/dL (0.2-0.5); GAMMA GLOBULIN 1.9 g/dL (0.8-1.7)
[2022-01-30 11:08] LABS: CREATININE, 24 HOUR URINE 0.07 g/24 h (0.50-2.15); PROTEIN, TOTAL, 24 HR UR 225 mg/24 h (<150); Protein/Creatinine Ratio 3.333 (< OR = 0.114); Protein/Creatinine Ratio 3333 mg/g creat (< OR = 114)
[2022-01-30 11:54] LABS: KAPPA LIGHT CHAIN, FREE, SERUM 114.9 mg/L (3.3-19.4); KAPPA/LAMBDA LIGHT CHAINS FREE 1.28 (0.26-1.65); LAMBDA LIGHT CHAIN, FREE, SERU 89.5 mg/L (5.7-26.3)
[2022-01-30 14:22] LABS: RPR w(Moniotor) w/REFL Titer NON-REACTIVE (NON-REACTIVE)
[2022-01-30 15:33] LABS: ALBUMIN 57 %; ALPHA-1-GLOBULINS 6 %; ALPHA-2-GLOBULINS 6 %; BETA GLOBULINS 11 %; GAMMA GLOBULINS 21 %
[2022-01-31 11:26] LABS: Anti-Nuclear Antibody Pattern Mitotic, Centrosome; Anti-Nuclear Antibody Screen POSITIVE (NEGATIVE); Anti-Nuclear Antibody Titer 1:40 titer
[2022-01-31 14:34] LABS: Complement Total (CH50) >60 U/mL (31-60)
[2022-02-01 15:33] LABS: ANCA Screen NEGATIVE (NEGATIVE)
== END 2022-01-29 14:00 | disposition home or self-care (01) | DRG 177 ==
LOC: ER 17:27 → ICU 01-26 03:43 → MEDSURG 01-27 15:46
PROVIDERS: Internal Medicine; Admitting Provider Internal Medicine; Emergency Provider Family Medicine; PCP Nurse Practitioner Family; Visit Provider Internal Medicine
DX: U07.1 COVID-19 (principal); J12.82 Pneumonia due to coronavirus disease 2019; N17.0 Acute kidney failure with tubular necrosis; I13.0 Hypertensive heart and chronic kidney disease with heart failure and stage 1 through stage 4 chronic kidney disease, or unspecified chronic kidney disease; E87.2 Acidosis; I50.32 Chronic diastolic (congestive) heart failure; F15.10 Other stimulant abuse, uncomplicated; F41.9 Anxiety disorder, unspecified; Z87.440 Personal history of urinary (tract) infections; E10.40 Type 1 diabetes mellitus with diabetic neuropathy, unspecified; E10.22 Type 1 diabetes mellitus with diabetic chronic kidney disease; N18.9 Chronic kidney disease, unspecified; Z90.2 Acquired absence of lung [part of]; F17.210 Nicotine dependence, cigarettes, uncomplicated; R09.02 Hypoxemia; D63.1 Anemia in chronic kidney disease; T50.905A Adverse effect of unspecified drugs, medicaments and biological substances, initial encounter; N14.2 Nephropathy induced by unspecified drug, medicament or biological substance; Z79.891 Long term (current) use of opiate analgesic; J98.4 Other disorders of lung; E87.5 Hyperkalemia; N31.9 Neuromuscular dysfunction of bladder, unspecified; R10.84 Generalized abdominal pain
CPT/HCPCS: 36415; 36416; 36600; 71045; 71250; 74176; 80048; 80051; 80053; 81001; 82009; 82044; 82330; 82570; 82595; 82803; 82805; 82962; 83036; 83605; 83690; 83735; 83883; 84100; 84145; 84155; 84156; 84165; 84166; 85025; 85378; 86036; 86038; 86140; 86160; 86162; 86592; 87040; 87086; 87641; 93005; 93306; 94660; 94760; 96365; 96372; 96375; 99291; J0743; J1644; J1815; J1940; J2020; J2250; J2270; J2405; J8540

== ENCOUNTER 2022-02-04 18:35 | Emergency (ER) | payer BC, MEDICAID, SELFPAY ==
[2022-02-04] VITALS (9 sets, daily range): BP systolic 102–132; BP diastolic 64–88; PULSE 72–90; RESP 20–22; TEMP 36.6–37.1; O2SAT 92–99; BMI 25.4
--- NOTE | 2022-02-04 18:54 | W.ED.ABDPA2 ---
HPI - Abdominal Pain General: Chief Complaint: Abdominal Pain Stated Complaint: LEFT FLANK PAIN Time Seen by Provider: 02/04/22 18:41 Source: patient and EMS Mode of arrival: EMS Limitations: no limitations History of Present Illness: 36-year-old female with a history of type 1 diabetes she was actually just admitted here and discharged recently for COVID-pneumonia states that over the last 2 days she has been having some flank pain with nausea vomiting diarrhea patient is not very compliant with her diabetic meds her blood sugar was in the 400s per EMS she denies any fevers denies any worsening improving factors at this time. Associated Symptoms: Denies chills, diarrhea, dysuria, fever(s), nausea and vomiting Related Data: Date of Last Menstrual Period: 11/23/20 Review of Systems Const: Denies: fever(s), chills, body aches or change in appetite Eyes: Denies: blurry vision or eye discomfort ENMT: Denies: throat pain or dental pain Card: Denies: chest pain Resp: Denies: dyspnea GI: Denies: abdominal pain, nausea, vomiting or diarrhea : Reports: flank pain; Denies: dysuria Musc: Reports: back pain; Denies: neck pain Skin/Breast: Denies: rash Neuro: Denies: headache(s) Psych: Denies: depression Ramiro/Lymph: Denies: easy bruising All/Imm: Denies: urticaria PFSH ED PFSH: Medical History Abdominal pain Acute hyperglycemia Acute kidney injury superimposed on chronic kidney disease Anemia Anxiety Arnold-Chiari malformation Celiac disease Chronic headache Complicated UTI (urinary tract infection) COVID-19 Cystitis Diabetes mellitus Diabetic gastroparesis -continue Reglan Diabetic neuropathy associated with type 1 diabetes mellitus DKA (diabetic ketoacidoses) Drug abuse Elevated lactic acid level Elevated serum creatinine Esophagitis Exposure to severe acute respiratory syndrome coronavirus 2 (SARS-CoV-2) -COVID-19 negative (PCR) History of pancreatitis HTN (hypertension) Hyperglycemia Long-term insulin use Lymphadenitis Metabolic acidosis Migraine headache Nephrotic syndrome Non-alcoholic fatty liver disease Pancreatitis PID (pelvic inflammatory disease) Pleural effusion 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 Pyelonephritis Recurrent UTI Respiratory failure Sepsis Tobacco dependence Type 1 diabetes mellitus Uncontrolled type 1 diabetes mellitus Ureterolithiasis Surgical History History of cholecystectomy History of endoscopy History of lung surgery -s/p LLL lobectomy secondary to cavitary pneumonia (2017) Family History Grandfather Diabetes Other Heart disease Hypertension Social History Smoking and tobacco status: current every day smoker cigarettes Packs smoked per day: 0.5 Second hand smoke exposure: Yes Alcohol intake: never Household members: children Housing: House Marital status: Single Current occupational status: unemployed Female Reproductive History: Date of last menstrual period: 11/23/20 Physical Exam Const: COMMON NORMALS: no acute distress, patient oriented x3 and healthy appearing HENMT: COMMON NORMALS: normocephalic and atraumatic HEAD & SCALP: normocephalic and atraumatic Eye: COMMON NORMALS: Equal, round and reactive pupils present and EOMs intact bilaterally PUPIL: Yes Equal, round and reactive pupils present Neck/C-Spine: COMMON NORMALS: full ROM and supple Chest: COMMONS NORMALS: normal inspection of the chest and normal palpation of entire chest wall Resp: COMMON NORMALS: normal respiratory effort, No retractions, No use of accessory muscles and clear to auscultation bilaterally AUSCULTATION: clear to auscultation bilaterally Cardio: COMMON NORMALS: regular rate, regular rhythm and No murmurs present (Cardio) RATE: regular rate RHYTHM: regular rhythm GI: COMMON NORMALS: Normal to inspection, nondistended, normoactive bowel sounds present, Soft to palpation, non-tender and no masses PALPATION: Yes Soft to palpation Extremity: COMMON NORMALS: normal to inspection and full ROM Neuro: COMMON NORMALS: patient oriented x3, moves all extremities and no focal motor deficits Psych: COMMON NORMALS: mental status grossly normal, Normal thought process present and cooperative THOUGHT PROCESS: Normal thought process present Skin: COMMON NORMALS: no rashes or lesions noted and no wounds GENERAL SKIN EXAM: no rashes or lesions noted Course Vital Signs: Vital signs: Vital Signs Temperature 98.7 F 02/04/22 22:54 Pulse Rate 83 02/04/22 22:54 Respiratory Rate 21 H 02/04/22 22:52 Blood Pressure 122/80 02/04/22 22:54 Pulse Oximetry 96 02/04/22 22:54 Oxygen Delivery Me thod 02/04/22 22:54 MDM - Abdominal Pain Medical Decision Making Patient presents here with abdominal pain CT does show colitis she is well-appearing here blood work is normal we will start her on Augmentin she is to follow-up with PCP and return if worsening she understands agrees to plan. Lab Data : 02/04/22 19:24 02/04/22 19:24 Labs/Radiology: Radiology Impressions Abdomen/Pelvis CT 02/04/22 22:17 IMPRESSION: 1. Small bilateral pleural effusions. Increased interstitium at the lung bases, consistent pulmonary edema. 2. Mural thickening of the descending and sigmoid portions of the colon with mild pericolonic edema. Findings suggest nonspecific colitis. 3. Urinary bladder is partially distended. The bladder wall is thickened, which may be secondary to underdistention. Nonspecific cystitis not excluded. 4. Cortical atrophy of the lower pole left kidney. No nephrolithiasis or obstructive uropathy. 5. Bilateral L5 spondylolysis. Minimal grade 1 spondylolisthesis associated. Laboratory Results WBC 8.6 10^3/uL (4.0-10.0) 02/04/22 19:24 RBC 3.31 10^6/uL (4.1-5.3) L 02/04/22 19:24 Hgb 8.9 g/dL (11.5-15.3) L 02/04/22 19:24 Hct 29.1 % (37.0-47.0) L 02/04/22 19:24 MCV 87.9 fl (81-99) 02/04/22 19:24 MCH 26.9 pg (28.0-34.0) L 02/04/22 19:24 MCHC 30.6 g/dL (30.0-36.0) 02/04/22 19:24 RDW 17.1 % (12.1-15.1) H 02/04/22 19:24 Plt Count 253 10^3/cmm (130-400) 02/04/22 19:24 MPV 9.7 fL (7.4-10.4) 02/04/22 19:24 Neut % (Auto) 67.8 % 02/04/22 19:24 Lymph % (Auto) 21.0 % 02/04/22 19:24 [place] % (Auto) 7.6 % 02/04/22 19:24 Eos % (Auto) 2.7 % 02/04/22 19:24 Baso % (Auto) 0.7 % 02/04/22 19:24 Neut # (Auto) 5.83 10^3/uL (1.8-7.7) 02/04/22 19:24 Lymph # (Auto) 1.8 10^3/uL (0.8-4.8) 02/04/22 19:24 [place] # (Auto) 0.7 10^3/uL (0.2-0.9) 02/04/22 19: Eos # (Auto) 0.2 10^3/uL (0.0-0.8) 02/04/22: Baso # (Auto) 0.1 10^3/uL (0.0-0.1) 02/04/22 19: Nucleated RBC % (auto) 0 % 02/04/22: Nucleated RBCs # 0.0 /100WBC 02/04/22 19:24 Specimen Type Arterial 02/04/22 20:09 Sample Site Radial, left 02/04/22 20:09 ABG pH 7.37 (7.35-7.45) 02/04/22 20:09 ABG pCO2 38.1 mmHg (35-45) 02/04/22 20:09 ABG pO2 73.8 mmHg (80.0-100.0) L 02/04/22 20:09 ABG HCO3 22.1 mmol/L (22-26) 02/04/22 20:09 ABG Base Excess -2.9 mmol/L (-2.0-2.0) L 02/04/22 20:09 Braulio Test Pos 02/04/22 20:09 Hematocrit 27.0 % (37-47) L 02/04/22 20:09 FiO2 21.0 % 02/04/22 20:09 Office Professionals ID [email or web address] 02/04/22 20:09 Sodium 140 mmol/L (136-145) 02/04/22 19:24 Potassium 3.3 mmol/L (3.5-5.1) L 02/04/22 19:24 Chloride 107 mmol/L (98-107) 02/04/22 19:24 Carbon Dioxide 21 mmol/L (22-29) L 02/04/22 19:24 Anion Gap 15.3 (5-19) 02/04/22 19:24 BUN 29 mg/dL (6-20) H 02/04/22 19:24 Creatinine 1.8 mg/dL (0.5-0.9) H 02/04/22 19:24 GFR Calculation 32.0 mL/min (90-130) L 02/04/22 19:24 Glucose 316 mg/dL (65-115) H 02/04/22 19:24 POC Glucose 226 mg/dL (70-110) H 02/04/22 21:39 Calculated Osmolality 308 mOsm/kg (285-295) H 02/04/22 19:24 Calcium 7.9 mg/dL (8.5-10.5) L 02/04/22 19:24 Total Bilirubin 0.2 mg/dL (0.15-1.2) 02/04/22 19:24 AST 11 U/L (0-32) 02/04/22 19:24 ALT 11 U/L (0-33) 02/04/22 19:24 Alkaline Phosphatase 117 IU/L (35-105) H 02/04/22 19:24 Total Protein 5.7 g/dL (6.6-8.7) L 02/04/22 19:24 Albumin 2.3 g/dL (3.5-5.2) L 02/04/22 19:24 Globulin 3.4 g/dL (1.3-4.6) 02/04/22 19:24 Lipase 30 U/L (13-60) 02/04/22 19:24 HCG, Qual Negative (Negative) 02/04/22 19:24 Urine Color Yellow (Yellow) 02/04/22 21:05 Urine Appearance Clear (CLEAR) 02/04/22 21:05 Urine pH 7 (5-7) 02/04/22 21:05 Ur Specific [place] 1.005 (1.005-1.030) 02/04/22 21:05 Urine Protein 3+ (Negative) H 02/04/22 21:05 Urine Glucose (UA) 2+ (Normal) H 02/04/22 21:05 Urine Ketones Negative (Negative) 02/04/22 21:05 Urine Blood 3+ (Negative) H 02/04/22 21:05 Urine Nitrate Negative (Negative) 02/04/22 21:05 Urine Bilirubin Neg (Negative) 02/04/22 21:05 Urine Urobilinogen Neg mg/dL (Negative) 02/04/22 21:05 Ur Leukocyte Esterase 1+ (Negative) H 02/04/22 21:05 Urine RBC 15-25 /hpf (0-2) H 02/04/22 21:05 Urine WBC 15-25 /hpf (0-5) H 02/04/22 21:05 Ur Squamous Epith Cells 10-15 /hpf (0-5) H 02/04/22 21:05 Amorphous Sediment Not Reportable 02/04/22 21:05 Urine Bacteria Trace /hpf (NONE) 02/04/22 21:05 Urine Mucus Trace /hpf 02/04/22 21:05 Discharge Plan Discharge Patient Disposition: Home Clinical Impression: Colitis Condition: Stable Prescriptions: New Augmentin 500-125 mg tablet 1 tab PO BID Qty: 14 0RF No Action Glucagon (HCl) Emergency Kit 1 mg recon soln 1 mg SUBCUT Q20M PRN (Reason: hypoglycemia) Qty: 3 3RF Rx Instructions: until target blood sugar attained hydrocodone-acetaminophen 5-325 mg tablet 1 tab PO Q6H PRN (Reason: pain) Qty: 14 0RF ondansetron 4 mg tablet,disintegrating 4 mg PO Q6H PRN (Reason: nausea and vomiting) Qty: 14 0RF diphenhydramine HCl [Benadryl Allergy] 25 mg Tablet 25 mg PO BID insulin aspart U-100 [Novolog Flexpen U-100 Insulin] 100 unit/mL (3 mL) Insulin Pen See Rx Instructions .ROUTE .COMPLEX Rx Instructions: SLIDING SCALE subcutaneously TID tamsulosin 0.4 mg Capsule 0.4 mg PO DAILY Qty: 30 0RF pantoprazole 40 mg Tablet,Delayed Release (Dr/Ec) 40 mg PO DAILY Qty: 30 0RF amoxicillin-pot clavulanate 875-125 mg tablet 1 tab PO BID Qty: 10 0RF insulin glargine [Lantus Solostar U-100 Insulin] 100 unit/mL (3 mL) insulin pen 15 unit SUBCUT BID@0600,1800 Qty: 3 0RF furosemide 20 mg Tablet 20 mg PO DAILY@0800 PRN (Reason: Weight gain) Qty: 30 0RF albuterol sulfate 90 mcg/actuation HFA aerosol inhaler 2 inh inhalation Q8H PRN (Reason: shortness of breath or wheezing) Qty: 8.5 5RF Lantus Solostar U-100 Insulin 100 unit/mL (3 mL) insulin pen 15 unit SUBCUT BID Qty: 15 3RF Discharge Orders: Discharge ED (Routine); Ordered 02/04/22 Ordered By: Ronny Ayala Referrals: Elizabeth Dougherty FNP [Primary Care Provider] - 1-3 days Discharge Diet: Advance as tolerated Discharge Activity: Resume usual activity Patient Instructions: Colitis (ED) Coding Level of Care Code ED Forming Fixer for Reji Fwd Exam Comprehensive
[2022-02-04] MEDS: sodium chloride 0.9% 1,000 ML 999 ML IV (19:22)
[2022-02-04] MEDS: ondansetron 2 mg/ML SDV 2 mL 4 MG IVP (19:22)
[2022-02-04] MEDS: morphine 4 mg/mL SDV 1 mL IVP (19:22)
[2022-02-04 19:31] LABS: Basophils # 0.1 10^3/uL (0.0-0.1); Basophils % 0.7 %; Eosinophils # 0.2 10^3/uL (0.0-0.8); Eosinophils % 2.7 %; Hematocrit 29.1 % (37.0-47.0); Hemoglobin 8.9 g/dL (11.5-15.3); Lymphocytes # 1.8 10^3/uL (0.8-4.8); Mean Corpuscular HGB Conc 30.6 g/dL (30.0-36.0); Mean Corpuscular Hemoglobin 26.9 pg (28.0-34.0); Mean Corpuscular Volume 87.9 fl (81-99); Mean Platelet Volume 9.7 fL (7.4-10.4); Monocytes # 0.7 10^3/uL (0.2-0.9); Monocytes % 7.6 %; Neutrophils # 5.83 10^3/uL (1.8-7.7); Neutrophils % 67.8 %; Nucleated Red Blood Cells % 0 %; Platelet Count 253 10^3/cmm (130-400); Red Blood Count 3.31 10^6/uL (4.1-5.3); Red Cell Distribution Width 17.1 % (12.1-15.1); White Blood Count 8.6 10^3/uL (4.0-10.0)
[2022-02-04 20:01] LABS: Alanine Aminotransferase 11 U/L (0-33); Albumin Level 2.3 g/dL (3.5-5.2); Alkaline Phosphatase 117 IU/L (35-105); Anion Gap 15.3 (5-19); Aspartate Amino Transferase 11 U/L (0-32); Blood Urea Nitrogen 29 mg/dL (6-20); Calcium 7.9 mg/dL (8.5-10.5); Carbon Dioxide 21 mmol/L (22-29); Chloride 107 mmol/L (98-107); Globulin 3.4 g/dL (1.3-4.6); Glucose 316 mg/dL (65-115); Lipase 30 U/L (13-60); Osmolality Calculated 308 mOsm/kg (285-295); Potassium 3.3 mmol/L (3.5-5.1); Sodium 140 mmol/L (136-145); Total Bilirubin 0.2 mg/dL (0.15-1.2); Total Protein 5.7 g/dL (6.6-8.7)
[2022-02-04 20:03] LABS: HCG, Serum Qual Negative (Negative)
[2022-02-04 20:15] LABS: Glucose Point of Care 310 mg/dL (70-110)
[2022-02-04 20:17] LABS: ABG PCO2 38.1 mmHg (35-45); ABG PH Result 7.37 (7.35-7.45); Base Excess ABG -2.9 mmol/L (-2.0-2.0); Blood Gas Allen Test Pos; Blood Gas Sample Site Radial, left; Blood Gas Sample Type Arterial; HCO3 ABG 22.1 mmol/L (22-26); PO2 ABG 73.8 mmHg (80.0-100.0)
[2022-02-04] MEDS: insulin regular-human 100 units/1 mL 5 UNIT IVP (20:56)
[2022-02-04 21:42] LABS: Glucose Point of Care 226 mg/dL (70-110)
[2022-02-04 21:54] LABS: Glucose Point of Care 350 mg/dL (70-110)
[2022-02-04 22:10] LABS: Add Urine Microscopic? YES; Bilirubin Urine Neg (Negative); Blood Urine 3+ (Negative); Glucose Urine UA 2+ (Normal); Ketones Urine Negative (Negative); Leukocyte Esterase Urine 1+ (Negative); Nitrate Urine Negative (Negative); Protein Urine 3+ (Negative); Specific Gravity, Urine 1.005 (1.005-1.030); Urine Appearance Clear (CLEAR); Urine Color Yellow (Yellow); Urobilinogen Urine Neg (Negative); pH Urine 7 (5-7)
[2022-02-04 22:11] LABS: Add Urine Culture? No; Bacteria Urine TRACE /hpf; Mucus Urine TRACE /hpf; RBC Urine 15-25 /hpf (0-2); WBC Urine 15-25 /hpf (0-5)
--- NOTE | 2022-02-04 22:17 | CTR_ITS ---
PROCEDURE INFORMATION: Exam: CT Abdomen And Pelvis Without Contrast Exam date and time: 02/04/2022 10:23 PM Age: 36 years old Clinical indication: Abdominal pain; Flank; Left; Prior surgery; Surgery type: Gb; Additional info: Flank pain TECHNIQUE: Imaging protocol: Computed tomography of the abdomen and pelvis without contrast. Radiation optimization: All CT scans at this facility use at least one of these dose optimization techniques: automated exposure control; mA and/or kV adjustment per patient size (includes targeted exams where dose is matched to clinical indication); or iterative reconstruction. COMPARISON: [place] [id number] 01/26/2022 10:58 AM RADIATION DOSE METRICS: Total DLP (mGy-cm): 398.21 FINDINGS: Lungs: Increased interstitium at the lung bases, consistent pulmonary edema. Pleural spaces: Small bilateral pleural effusions. Liver: Unremarkable. No mass. Gallbladder and bile ducts: Cholecystectomy. No ductal dilation. Pancreas: Unremarkable. No ductal dilation. Spleen: Unremarkable. No splenomegaly. Adrenal glands: Unremarkable. No mass. Kidneys and ureters: Cortical atrophy of the lower pole left kidney. No nephrolithiasis or obstructive uropathy. Stomach and bowel: The stomach is distended with ingested material. The small bowel is unremarkable as demonstrated. Mural thickening of the descending and sigmoid portions of the colon with mild pericolonic edema. Findings suggest nonspecific colitis. Appendix: The appendix is normal in appearance. No evidence of appendicitis. Intraperitoneal space: No pneumoperitoneum. No significant fluid collection. Vasculature: The aorta is atherosclerotic. No aortic aneurysm. Lymph nodes: No pathologically enlarged lymph nodes. Urinary bladder: Urinary bladder is partially distended. The bladder wall is thickened, which may be secondary to underdistention. Nonspecific cystitis not excluded. Reproductive: Unremarkable as visualized. Bones/joints: Bilateral L5 spondylolysis. Minimal grade 1 spondylolisthesis associated. Soft tissues: Diffuse subcutaneous edema. CT/CT kidney stone [id number] IMPRESSION: 1. Small bilateral pleural effusions. Increased interstitium at the lung bases, consistent pulmonary edema. 2. Mural thickening of the descending and sigmoid portions of the colon with mild pericolonic edema. Findings suggest nonspecific colitis. 3. Urinary bladder is partially distended. The bladder wall is thickened, which may be secondary to underdistention. Nonspecific cystitis not excluded. 4. Cortical atrophy of the lower pole left kidney. No nephrolithiasis or obstructive uropathy. 5. Bilateral L5 spondylolysis. Minimal grade 1 spondylolisthesis associated.
[2022-02-04] MEDS: HYDROmorphone 1 mg/mL INJ 1 mL IVP (22:52)
--- NOTE | 2022-02-04 23:21 | PC.NURSE ---
attempted to d/c patient, patient states that she has no ride home and no phone to contact a ride, and cannot remember a number to call. cannot d/c due to pain medication administration.
[2022-02-05 01:01] VITALS: BP 102/73; PULSE 78; RESP 18; O2SAT 94
[2022-02-05 01:23] VITALS: BP 102/64; RESP 20; O2SAT 98
[2022-02-05 02:09] VITALS: BP 118/76; O2SAT 95
== END 2022-02-05 02:20 | disposition home or self-care (01) ==
PROVIDERS: Emergency Provider Emergency Medicine; PCP Nurse Practitioner Family
DX: K52.9 Noninfective gastroenteritis and colitis, unspecified (principal); Z79.4 Long term (current) use of insulin; F17.210 Nicotine dependence, cigarettes, uncomplicated; E10.9 Type 1 diabetes mellitus without complications
CPT/HCPCS: 36416; 36600; 74176; 80053; 81001; 82803; 82962; 83690; 84703; 85025; 96361; 96374; 96375; 99285; J1170; J1815; J2270; J2405; J7030

== ENCOUNTER 2022-02-05 14:40 | Emergency (ER) | payer BC, MEDICAID, SELFPAY ==
[2022-02-05 14:58] VITALS: BP 145/91; PULSE 80; RESP 18; TEMP 36.8; O2SAT 99; BMI 25.4
[2022-02-05 17:40] LABS: Basophils # 0.1 10^3/uL (0.0-0.1); Basophils % 0.9 %; Eosinophils # 0.2 10^3/uL (0.0-0.8); Eosinophils % 2.3 %; Hematocrit 30.5 % (37.0-47.0); Hemoglobin 9.5 g/dL (11.5-15.3); Lymphocytes # 1.9 10^3/uL (0.8-4.8); Mean Corpuscular HGB Conc 31.1 g/dL (30.0-36.0); Mean Corpuscular Hemoglobin 27.1 pg (28.0-34.0); Mean Corpuscular Volume 86.9 fl (81-99); Mean Platelet Volume 9.9 fL (7.4-10.4); Monocytes # 0.5 10^3/uL (0.2-0.9); Monocytes % 7.2 %; Neutrophils # 4.34 10^3/uL (1.8-7.7); Neutrophils % 62.6 %; Nucleated Red Blood Cells % 0 %; Platelet Count 248 10^3/cmm (130-400); Red Blood Count 3.51 10^6/uL (4.1-5.3); Red Cell Distribution Width 17.1 % (12.1-15.1); White Blood Count 6.9 10^3/uL (4.0-10.0)
[2022-02-05 18:05] LABS: HCG, Serum Qual Negative (Negative)
[2022-02-05 18:09] LABS: Alanine Aminotransferase 12 U/L (0-33); Albumin Level 2.7 g/dL (3.5-5.2); Alkaline Phosphatase 140 U/L (35-105); Anion Gap 16.1 (5-19); Aspartate Amino Transferase 12 U/L (0-32); Blood Urea Nitrogen 28 mg/dL (6-20); Calcium 8.1 mg/dL (8.5-10.5); Carbon Dioxide 21 mmol/L (22-29); Chloride 104 mmol/L (98-107); Globulin 3.6 g/dL (1.3-4.6); Glomerular Filtration Rate 30.1 mL/min (90-130); Glucose 364 mg/dL (65-115); Lipase 34 U/L (13-60); Osmolality Calculated 304 mOsm/kg (285-295); Potassium 4.1 mmol/L (3.5-5.1); Sodium 137 mmol/L (136-145); Total Bilirubin 0.2 mg/dL (0.15-1.2); Total Protein 6.3 g/dL (6.6-8.7)
--- NOTE | 2022-02-05 21:18 | ED_ITS ---
HPI - Headache General: Chief Complaint: Headache Stated Complaint: vomiting Time Seen by Provider: 02/05/22 21:04 Source: patient Mode of arrival: ambulatory Limitations: no limitations History of Present Illness: 36-year-old female who states she been having a headache along with nausea vomiting over the last 6 7 hours. States she has chronic headaches this feels like a migraine she rates her headache a 6 out of 10 denies it being the worst headache of her life denies any fevers denies any change in vision denies abdominal pain. Associated symptoms: Reports nausea and vomiting; Deny chest pain, fever(s) or rash Review of Systems Const: Denies: fever(s), chills, body aches or change in appetite Eyes: Denies: blurry vision or eye discomfort ENMT: Denies: throat pain or dental pain Card: Denies: chest pain Resp: Denies: dyspnea GI: Reports: nausea and vomiting : Denies: dysuria Musc: Denies: neck pain or back pain Skin/Breast: Denies: rash Neuro: Reports: headache(s) Psych: Denies: depression Ramiro/Lymph: Denies: easy bruising All/Imm: Denies: urticaria PFSH ED PFSH: Medical History Abdominal pain Acute hyperglycemia Acute kidney injury superimposed on chronic kidney disease Anemia Anxiety Arnold-Chiari malformation Celiac disease Chronic headache Complicated UTI (urinary tract infection) COVID-19 Cystitis Diabetes mellitus Diabetic gastroparesis -continue Reglan Diabetic neuropathy associated with type 1 diabetes mellitus DKA (diabetic ketoacidoses) Drug abuse Elevated lactic acid level Elevated serum creatinine Esophagitis Exposure to severe acute respiratory syndrome coronavirus 2 (SARS-CoV-2) -COVID-19 negative (PCR) History of pancreatitis HTN (hypertension) Hyperglycemia Long-term insulin use Lymphadenitis Metabolic acidosis Migraine headache Nephrotic syndrome Non-alcoholic fatty liver disease Pancreatitis PID (pelvic inflammatory disease) Pleural effusion 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 Pyelonephritis Recurrent UTI Respiratory failure Sepsis Tobacco dependence Type 1 diabetes mellitus Uncontrolled type 1 diabetes mellitus Ureterolithiasis Surgical History History of cholecystectomy History of endoscopy History of lung surgery -s/p LLL lobectomy secondary to cavitary pneumonia (2016) Family History Grandfather Diabetes Other Heart disease Hypertension Social History Smoking and tobacco status: current every day smoker cigarettes Packs smoked per day: 0.5 Second hand smoke exposure: Yes Alcohol intake: never Household members: children Housing: House Marital status: Single Current occupational status: unemployed Female Reproductive History: Date of last menstrual period: 11/23/20 Physical Exam Const: COMMON NORMALS: no acute distress, patient oriented x3 and healthy appearing HENMT: COMMON NORMALS: normocephalic and atraumatic HEAD & SCALP: normocephalic and atraumatic Eye: COMMON NORMALS: Equal, round and reactive pupils present and EOMs intact bilaterally PUPIL: Yes Equal, round and reactive pupils present Neck/C-Spine: COMMON NORMALS: full ROM and supple Chest: COMMONS NORMALS: normal inspection of the chest and normal palpation of entire chest wall Resp: COMMON NORMALS: normal respiratory effort, No retractions, No use of accessory muscles and clear to auscultation bilaterally AUSCULTATION: clear to auscultation bilaterally Cardio: COMMON NORMALS: regular rate, regular rhythm and No murmurs present (Cardio) RATE: regular rate RHYTHM: regular rhythm GI: COMMON NORMALS: Normal to inspection, nondistended, normoactive bowel sounds present, Soft to palpation, non-tender and no masses PALPATION: Yes Soft to palpation Extremity: COMMON NORMALS: normal to inspection and full ROM Neuro: COMMON NORMALS: patient oriented x3, moves all extremities and no focal motor deficits Psych: COMMON NORMALS: mental status grossly normal, Normal thought process present and cooperative THOUGHT PROCESS: Normal thought process present Skin: COMMON NORMALS: no rashes or lesions noted and no wounds GENERAL SKIN EXAM: no rashes or lesions noted Course Vital Signs: Vital signs: Vital Signs Temperature 98.2 F 02/05/22 14:58 Pulse Rate 80 02/05/22 14:58 Respiratory Rate 18 02/05/22 14:58 Blood Pressure 145/91 02/05/22 14:58 Pulse Oximetry 99 02/05/22 14:58 Oxygen Delivery Me thod 02/05/22 14:58 MDM - Headache Medical Decision Making Patient presents here with headache along with vomiting patient blood work here is normal she is well-appearing here she feels improved after Reglan Benadryl she stable for discharge we will prescribe her Benadryl for home she is to follow-up with PCP and return if worsening. Lab Data : 02/05/22 16:24 02/05/22 16:24 Laboratory Results WBC 6.9 10^3/uL (4.0-10.0) 02/05/22 16:24 RBC 3.51 10^6/uL (4.1-5.3) L 02/05/22 16:24 Hgb 9.5 g/dL (11.5-15.3) L 02/05/22 16:24 Hct 30.5 % (37.0-47.0) L 02/05/22 16:24 MCV 86.9 fl (81-99) 02/05/22 16:24 MCH 27.1 pg (28.0-34.0) L 02/05/22 16:24 MCHC 31.1 g/dL (30.0-36.0) 02/05/22 16:24 RDW 17.1 % (12.1-15.1) H 02/05/22 16:24 Plt Count 248 10^3/cmm (130-400) 02/05/22 16:24 MPV 9.9 fL (7.4-10.4) 02/05/22 16:24 Neut % (Auto) 62.6 % 02/05/22 16:24 Lymph % (Auto) 27.0 % 02/05/22 16:24 [place] % (Auto) 7.2 % 02/05/22 16:24 Eos % (Auto) 2.3 % 02/05/22 16:24 Baso % (Auto) 0.9 % 02/05/22 16:24 Neut # (Auto) 4.34 10^3/uL (1.8-7.7) 02/05/22 16:24 Lymph # (Auto) 1.9 10^3/uL (0.8-4.8) 02/05/22 16:24 [place] # (Auto) 0.5 10^3/uL (0.2-0.9) 02/05/22 16:24 Eos # (Auto) 0.2 10^3/uL (0.0-0.8) 02/05/22 16:24 Baso # (Auto) 0.1 10^3/uL (0.0-0.1) 02/05/22 16:24 Nucleated RBC % (auto) 0 % 02/05/22 16:24 Nucleated RBCs # 0.0 /100WBC 02/05/22 16:24 Sodium 137 mmol/L (136-145) 02/05/22 16:24 Potassium 4.1 mmol/L (3.5-5.1) 02/05/22 16:24 Chloride 104 mmol/L (98-107) 02/05/22 16:24 Carbon Dioxide 21 mmol/L (22-29) L 02/05/22 16:24 Anion Gap 16.1 (5-19) 02/05/22 16:24 BUN 28 mg/dL (6-20) H 02/05/22 16:24 Creatinine 1.9 mg/dL (0.5-0.9) H 02/05/22 16:24 GFR Calculation 30.1 mL/min (90-130) L 02/05/22 16:24 Glucose 364 mg/dL (65-115) H 02/05/22 16:24 Calculated Osmolality 304 mOsm/kg (285-295) H 02/05/22 16:24 Calcium 8.1 mg/dL (8.5-10.5) L 02/05/22 16:24 Total Bilirubin 0.2 mg/dL (0.15-1.2) 02/05/22 16:24 AST 12 U/L (0-32) 02/05/22 16:24 ALT 12 U/L (0-33) 02/05/22 16:24 Alkaline Phosphatase 140 U/L (35-105) H 02/05/22 16:24 Total Protein 6.3 g/dL (6.6-8.7) L 02/05/22 16:24 Albumin 2.7 g/dL (3.5-5.2) L 02/05/22 16:24 Globulin 3.6 g/dL (1.3-4.6) 02/05/22 16:24 Lipase 34 U/L (13-60) 02/05/22 16:24 HCG, Qual Negative (Negative) 02/05/22 16:24 Discharge Plan Discharge Patient Disposition: Home Clinical Impression: Headache, Vomiting Condition: Stable Prescriptions: New Reglan 10 mg tablet 10 mg PO Q6H PRN (Reason: nausea and vomiting) Qty: 20 0RF No Action Glucagon (HCl) Emergency Kit 1 mg recon soln 1 mg SUBCUT Q20M PRN (Reason: hypoglycemia) Qty: 3 3RF Rx Instructions: until target blood sugar attained hydrocodone-acetaminophen 5-325 mg tablet 1 tab PO Q6H PRN (Reason: pain) Qty: 14 0RF ondansetron 4 mg tablet,disintegrating 4 mg PO Q6H PRN (Reason: nausea and vomiting) Qty: 14 0RF Augmentin 500-125 mg tablet 1 tab PO BID Qty: 14 0RF diphenhydramine HCl [Benadryl Allergy] 25 mg Tablet 25 mg PO BID insulin aspart U-100 [Novolog Flexpen U-100 Insulin] 100 unit/mL (3 mL) Insulin Pen See Rx Instructions .ROUTE .COMPLEX Rx Instructions: SLIDING SCALE subcutaneously TID tamsulosin 0.4 mg Capsule 0.4 mg PO DAILY Qty: 30 0RF pantoprazole 40 mg Tablet,Delayed Release (Dr/Ec) 40 mg PO DAILY Qty: 30 0RF amoxicillin-pot clavulanate 875-125 mg tablet 1 tab PO BID Qty: 10 0RF insulin glargine [Lantus Solostar U-100 Insulin] 100 unit/mL (3 mL) insulin pen 15 unit SUBCUT BID@0600,1800 Qty: 3 0RF furosemide 20 mg Tablet 20 mg PO DAILY@0800 PRN (Reason: Weight gain) Qty: 30 0RF albuterol sulfate 90 mcg/actuation HFA aerosol inhaler 2 inh inhalation Q8H PRN (Reason: shortness of breath or wheezing) Qty: 8.5 5RF Lantus Solostar U-100 Insulin 100 unit/mL (3 mL) insulin pen 15 unit SUBCUT BID Qty: 15 3RF Discharge Orders: Discharge ED (Routine); Ordered 02/05/22 Ordered By: Ronny Ayala Referrals: Elizabeth Dougherty FNP [Primary Care Provider] - 1-3 days Discharge Diet: Advance as tolerated Discharge Activity: Resume usual activity Patient Instructions: Acute Headache (ED), Acute Nausea and Vomiting (ED) Coding Level of Care Code ED Radon Inspector for Reji Chandler
[2022-02-05] MEDS: naproxen 500 mg Tablet PO (21:58)
[2022-02-05] MEDS: metoclopramide 5 mg/mL SDV 2 mL 10 MG IM (21:59)
[2022-02-05] MEDS: diphenhydrAMINE 50 mg/mL SDV 1mL IM (22:00)
== END 2022-02-05 22:03 | disposition home or self-care (01) ==
PROVIDERS: Physician Assistant; Emergency Provider Emergency Medicine; PCP Nurse Practitioner Family
DX: R51.9 Headache, unspecified (principal); R11.11 Vomiting without nausea; Z79.4 Long term (current) use of insulin; F17.210 Nicotine dependence, cigarettes, uncomplicated; E10.9 Type 1 diabetes mellitus without complications; I10 Essential (primary) hypertension
CPT/HCPCS: 36415; 80053; 83690; 84703; 85025; 96372; 99284; J1200; J2765

== ENCOUNTER 2022-02-07 15:00 | Emergency (ER) | payer BC, MEDICAID, SELFPAY ==
[2022-02-07] VITALS (8 sets, daily range): BP systolic 134–141; BP diastolic 88–104; PULSE 77–93; RESP 16–20; TEMP 37; O2SAT 97–99; BMI 25.4
--- NOTE | 2022-02-07 15:09 | W.ED.GENADLT ---
HPI - General Adult General: Chief complaint: Abdominal Pain Stated complaint: ABDOMINAL PAIN/ DIZZY Time Seen by Provider: 02/07/22 15:03 History of Present Illness: Patient is a 36-year-old female with a history of DM c/b DKA and diabetic gastroparesis, UTI cholecystectomy presenting to the emergency room with diffuse abdominal pain and diarrhea. Patient tells that since 3 days ago, she has had significant intermittent colicky abdominal pain associate multiple episodes of loose watery stool. Patient denies any cough, runny nose sore throat, reports chills but denies any fever. Patient decreased reports decreased p.o. intake and nausea without significant vomiting. Patient denies any new urinary complaints including dysuria, polyuria/hematuria. Patient denies any new vaginal discharge, history of renal colic. No history of tubal ligation or hysterectomy. She does not think she is currently . Patient denies any cough, runny nose, sore throat, chest pain or shortness breath Onset: 3 days ago Duration:3 days Location:home Severity:moderate Associated symptoms: Reports nausea; Deny chest pain, dyspnea, rash, palpitations or vomiting Review of Systems Const: Reports: chills; Denies: fever(s) Eyes: Denies: change in vision ENMT: Denies: mouth pain Card: Denies: chest pain or palpitations Resp: Denies: dyspnea or non-productive cough GI: Reports: abdominal pain (+generalized abd pain), nausea, early satiety and diarrhea; Denies: vomiting : Denies: dysuria Musc: Denies: extremity pain Skin/Breast: Denies: rash or new lesions Neuro: Denies: weakness in extremities Psych: Reports: other (Normal mood) Ramiro/Lymph: Denies: easy bruising PFS ED PFSH: Medical History Abdominal pain Acute hyperglycemia Acute kidney injury superimposed on chronic kidney disease Anemia Anxiety Arnold-Chiari malformation Celiac disease Chronic headache Complicated UTI (urinary tract infection) COVID-19 Cystitis Diabetes mellitus Diabetic gastroparesis -continue Reglan Diabetic neuropathy associated with type 1 diabetes mellitus DKA (diabetic ketoacidoses) Drug abuse Elevated lactic acid level Elevated serum creatinine Esophagitis Exposure to severe acute respiratory syndrome coronavirus 2 (SARS-CoV-2) -COVID-19 negative (PCR) History of pancreatitis HTN (hypertension) Hyperglycemia Long-term insulin use Lymphadenitis Metabolic acidosis Migraine headache Nephrotic syndrome Non-alcoholic fatty liver disease Pancreatitis PID (pelvic inflammatory disease) Pleural effusion 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 Pyelonephritis Recurrent UTI Respiratory failure Sepsis Tobacco dependence Type 1 diabetes mellitus Uncontrolled type 1 diabetes mellitus Ureterolithiasis Surgical History History of cholecystectomy History of endoscopy History of lung surgery -s/p LLL lobectomy secondary to cavitary pneumonia (2017) Family History Grandfather Diabetes Other Heart disease Hypertension Social History Smoking and tobacco status: current every day smoker cigarettes Packs smoked per day: 0.5 Second hand smoke exposure: Yes Alcohol intake: never Household members: children Housing: House Marital status: Single Current occupational status: unemployed Female Reproductive History: Date of last menstrual period: 11/23/20 Physical Exam Const: COMMON NORMALS: alert HENMT: COMMON NORMALS: atraumatic HEAD & SCALP: atraumatic MOUTH: moist mucous membranes abnormal Eye: COMMON NORMALS: EOMs intact bilaterally and conjunctivae normal CONJUNCTIVA: Yes conjunctivae normal Neck/C-Spine: COMMON NORMALS: full ROM and supple Resp: COMMON NORMALS: normal respiratory effort and clear to auscultation bilaterally AUSCULTATION: clear to auscultation bilaterally Cardio: COMMON NORMALS: regular rate RATE: regular rate GI: COMMON NORMALS: Soft to palpation PALPATION: Yes Soft to palpation OTHER: +mild difufse TTP. NO guarding rebound, guarding, rigidity. No CVA tenderness to percussion. Neg Howell/Neg McBurney's point tenderness, no suprabupic tenderness to palpation. Extremity: COMMON NORMALS: full ROM Neuro: SENSORIUM/ORIENTATION: Yes alert MOTOR EXAM: No Abnormal motor strength present and Other motor observations present (no focal motor deficits) Psych: COMMON NORMALS: speech normal SPEECH: Yes normal speech MOOD & AFFECT: Yes euthymic mood Course Vital Signs: Vital signs: Vital Signs Temperature 98.6 F 02/07/22 15:08 Pulse Rate 88 02/07/22 19:02 Respiratory Rate 16 02/07/22 19:02 Blood Pressure 141/88 02/07/22 19:02 Pulse Oximetry 97 02/07/22 19:02 Oxygen Delivery Me thod 02/07/22 19:02 MDM - General Adult Medical Decision Making Patient is a 36-year-old female with a history of DM c/b DKA and diabetic gastroparesis, UTI cholecystectomy presenting to the emergency room with diffuse abdominal pain and diarrhea. On exam, patient has mild diffuse abdominal tenderness. No guarding or rebound tenderness. Patient appears to be dry. Hemodynamically stable. Patient is noted to have white count 8.3. Hemoglobin 10.4 above from baseline. Creatinine 1.8 similar to baseline. UA did not show any UTI. Patient received morphine x2 and GI cocktail reports that her pain is completely gone. Patient is able to tolerate p.o. Patient received IVF. I discussed patient's creatinine value instructed patient to follow-up with primary care provider as patient has a chronic kidney injury at this point. At the present time, I do not suspect any acute pathology as patient has been having diarrhea and the pain improved. Patient is afebrile with minimal white count. Covid negative. Should patient have any significant increase in pain, patient will is instructed to come back to the emergency room. Rx Maalox/pepcid PRN dyspepsia, and zofran PRN nausea/vomiting Disposition: Discharge. Patient counseled regarding diagnostic impression, treatment plan. Patient given ED strict return precautions to return for continuation, worsening, or development of new symptoms. Instructed to f/u w/ PCP regarding symptoms today. Patient verbalized understanding. Lab Data : 02/07/22 14:13 02/07/22 14:13 Laboratory Results WBC 8.3 10^3/uL (4.0-10.0) 02/07/22 14:13 RBC 3.85 10^6/uL (4.1-5.3) L 02/07/22 14:13 Hgb 10.4 g/dL (11.5-15.3) L 02/07/22 14:13 Hct 32.7 % (37.0-47.0) L 02/07/22 14:13 MCV 84.9 fl (81-99) 02/07/22 14:13 MCH 27.0 pg (28.0-34.0) L 02/07/22 14:13 MCHC 31.8 g/dL (30.0-36.0) 02/07/22 14:13 RDW 16.9 % (12.1-15.1) H 02/07/22 14:13 Plt Count 249 10^3/cmm (130-400) 02/07/22 14:13 MPV 10.4 fL (7.4-10.4) 02/07/22 14:13 Neut % (Auto) 67.7 % 02/07/22 14:13 Lymph % (Auto) 22.5 % 02/07/22 14:13 [place] % (Auto) 6.8 % 02/07/22 14:13 Eos % (Auto) 2.1 % 02/07/22 14:13 Baso % (Auto) 0.7 % 02/07/22 14:13 Neut # (Auto) 5.58 10^3/uL (1.8-7.7) 02/07/22 14:13 Lymph # (Auto) 1.9 10^3/uL (0.8-4.8) 02/07/22 14:13 [place] # (Auto) 0.6 10^3/uL (0.2-0.9) 02/07/22 14:13 Eos # (Auto) 0.2 10^3/uL (0.0-0.8) 02/07/22 14:13 Baso # (Auto) 0.1 10^3/uL (0.0-0.1) 02/07/22 14:13 Nucleated RBC % (auto) 0 % 02/07/22 14:13 Nucleated RBCs # 0.0 /100WBC 02/07/22 14:13 Sodium 137 mmol/L (136-145) 02/07/22 14:13 Potassium 3.6 mmol/L (3.5-5.1) 02/07/22 14:13 Chloride 103 mmol/L (98-107) 02/07/22 14:13 Carbon Dioxide 23 mmol/L (22-29) 02/07/22 14:13 Anion Gap 14.6 (5-19) 02/07/22 14:13 BUN 22 mg/dL (6-20) H 02/07/22 14:13 Creatinine 1.8 mg/dL (0.5-0.9) H 02/07/22 14:13 GFR Calculation 32.0 mL/min (90-130) L 02/07/22 14:13 Glucose 330 mg/dL (65-115) H 02/07/22 14:13 Calculated Osmolality 300 mOsm/kg (285-295) H 02/07/22 14:13 Calcium 8.4 mg/dL (8.5-10.5) L 02/07/22 14:13 Total Bilirubin 0.2 mg/dL (0.15-1.2) 02/07/22 14:13 AST 13 U/L (0-32) 02/07/22 14:13 ALT 14 U/L (0-33) 02/07/22 14:13 Alkaline Phosphatase 156 U/L (35-105) H 02/07/22 14:13 Total Protein 7.0 g/dL (6.6-8.7) 02/07/22 14:13 Albumin 3.0 g/dL (3.5-5.2) L 02/07/22 14:13 Globulin 4.0 g/dL (1.3-4.6) 02/07/22 14:13 Lipase 32 U/L (13-60) 02/07/22 14:13 Serum Ketones Negative (Negative) 02/07/22 14:13 Coronavirus 229E (PCR) Not detected (NOT DETECT) 02/07/22 16:08 SARS-CoV-2 (PCR) Not detected (NOT DETECT) 02/07/22 16:08 Discharge Plan Discharge Patient Disposition: Home Clinical Impression: Abdominal pain, Diarrhea, CKD (chronic kidney disease), Nausea & vomiting Condition: Stable Prescriptions: New Pepcid 20 mg tablet 20 mg PO BID PRN (Reason: abdominal pain) 10 Days Qty: 20 0RF Reglan 5 mg tablet 5 mg PO BID PRN (Reason: nausea and vomiting) 5 Days Qty: 10 0RF Maalox Advanced 1,000-60 mg tablet,chewable 1 tab PO TID PRN (Reason: abdominal pain) 7 Days Qty: 21 0RF No Action Glucagon (HCl) Emergency Kit 1 mg recon soln 1 mg SUBCUT Q20M PRN (Reason: hypoglycemia) Qty: 3 3RF Rx Instructions: until target blood sugar attained ondansetron 4 mg tablet,disintegrating 4 mg PO Q6H PRN (Reason: nausea and vomiting) Qty: 14 0RF amoxicillin-pot clavulanate [Augmentin] 500-125 mg tablet 1 tab PO BID Qty: 14 0RF Pepto-Bismol 262 mg Tablet 2 tab PO Q1H PRN (Reason: Heartburn) Rx Instructions: do not exceed 16 tabs per 24 hrs tamsulosin 0.4 mg capsule 0.4 mg PO BEDTIME pantoprazole 40 mg tablet,delayed release (DR/EC) 40 mg PO DAILY@12 albuterol sulfate 90 mcg/actuation HFA aerosol inhaler 2 puff inhalation Q8H PRN (Reason: shortness of breath or wheezing) diphenhydramine HCl [Benadryl Allergy] 25 mg Tablet 25 mg PO BEDTIME insulin aspart U-100 [Novolog Flexpen U-100 Insulin] 100 unit/mL (3 mL) Insulin Pen See Rx Instructions .ROUTE .COMPLEX Rx Instructions: SLIDING SCALE subcutaneously TID furosemide 20 mg Tablet 20 mg PO DAILY@0800 PRN (Reason: Weight gain) Qty: 30 0RF insulin glargine [Lantus Solostar U-100 Insulin] 100 unit/mL (3 mL) insulin pen 15 unit SUBCUT BID Qty: 15 3RF metoclopramide HCl [Reglan] 10 mg tablet 10 mg PO Q6H PRN (Reason: nausea and vomiting) Qty: 20 0RF Discharge Orders: Discharge ED (Routine); Ordered 02/07/22 Ordered By: Jacklyn Laurent Referrals: Elizabeth Dougherty FNP [Primary Care Provider] - Discharge Diet: Advance as tolerated Discharge Activity: Increase activity as tolerated Patient Instructions: Abdominal Pain (ED) Activity Restrictions/Additional Instructions: Please come back if you have any worsening abdominal pain, fever or chills, nausea or vomiting, diarrhea, blood in the stool, inability hold down liquid or solids, or any new concerning complaints. Please follow-up with your primary care provider for further evaluation of your kidneys as they are injuried. Coding Level of Care Code ED Associate Engineer for Chg Fwd Exam Comprehensive
[2022-02-07 15:18] LABS: Basophils # 0.1 10^3/uL (0.0-0.1); Basophils % 0.7 %; Eosinophils # 0.2 10^3/uL (0.0-0.8); Eosinophils % 2.1 %; Hematocrit 32.7 % (37.0-47.0); Hemoglobin 10.4 g/dL (11.5-15.3); Lymphocytes # 1.9 10^3/uL (0.8-4.8); Lymphocytes % 22.5 %; Mean Corpuscular HGB Conc 31.8 g/dL (30.0-36.0); Mean Corpuscular Volume 84.9 fl (81-99); Mean Platelet Volume 10.4 fL (7.4-10.4); Monocytes # 0.6 10^3/uL (0.2-0.9); Monocytes % 6.8 %; Neutrophils # 5.58 10^3/uL (1.8-7.7); Neutrophils % 67.7 %; Nucleated Red Blood Cells % 0 %; Platelet Count 249 10^3/cmm (130-400); Red Blood Count 3.85 10^6/uL (4.1-5.3); Red Cell Distribution Width 16.9 % (12.1-15.1); White Blood Count 8.3 10^3/uL (4.0-10.0)
[2022-02-07 15:41] LABS: Ketone (Acetest) Serum Negative (Negative)
[2022-02-07 15:47] LABS: Alanine Aminotransferase 14 U/L (0-33); Alkaline Phosphatase 156 U/L (35-105); Anion Gap 14.6 (5-19); Aspartate Amino Transferase 13 U/L (0-32); Blood Urea Nitrogen 22 mg/dL (6-20); Calcium 8.4 mg/dL (8.5-10.5); Carbon Dioxide 23 mmol/L (22-29); Chloride 103 mmol/L (98-107); Glucose 330 mg/dL (65-115); Lipase 32 U/L (13-60); Osmolality Calculated 300 mOsm/kg (285-295); Potassium 3.6 mmol/L (3.5-5.1); Sodium 137 mmol/L (136-145); Total Bilirubin 0.2 mg/dL (0.15-1.2)
[2022-02-07] MEDS: sodium chloride 0.9% 1,000 ML 999 ML IV ×2 (15:48→17:51)
[2022-02-07] MEDS: ondansetron 2 mg/ML SDV 2 mL 4 MG IVP (15:52)
[2022-02-07] MEDS: famotidine 20 mg/2 mL INJ IVP (15:56)
--- NOTE | 2022-02-07 16:13 | PC.NURSE ---
Pt reports generalized abdominal pain for last 2 days. Reports today unable to keep anything down and pain is worsened. reports N/V/D, and dysura. Hx of similar pain and was told there was too much acid in her stomach. Pt laying in bed crying.
[2022-02-07] MEDS: haloperidol inj 5 mg/mL INJ 1 mL 2 MG IM (17:53)
[2022-02-07] MEDS: morphine 4 mg/mL SDV 1 mL IVP (17:53)
[2022-02-07 17:57] LABS: Adenovirus Not Detected (NOT DETECT); Chlamydia Pneumoniae Not Detected (NOT DETECT); Coronavirus 229E,HKU1,NL63,OC4 Not Detected (NOT DETECT); Human Metapneumovirus Not Detected (NOT DETECT); Human Rhinovirus/Enterovirus Not Detected (NOT DETECT); Influenza A Not Detected (NOT DETECT); Influenza A H1 Not Detected (NOT DETECT); Influenza A H1-2009 Not Detected (NOT DETECT); Influenza A H3 Not Detected (NOT DETECT); Influenza B Not Detected (NOT DETECT); Mycoplasma Pneumoniae Not Detected (NOT DETECT); Parainfluenza Virus Type 1 Not Detected (NOT DETECT); Parainfluenza Virus Type 2 Not Detected (NOT DETECT); Parainfluenza Virus Type 3 Not Detected (NOT DETECT); Parainfluenza Virus Type 4 Not Detected (NOT DETECT); Respiratory Syncytial Virus A Not Detected (NOT DETECT); Respiratory Syncytial Virus B Not Detected (NOT DETECT); SARS-COV-2 Not Detected (NOT DETECT)
--- NOTE | 2022-02-07 19:15 | PC.NURSE ---
report given to DELIO Frazier and ROLA Adams
[2022-02-07] MEDS: sodium chloride 0.9% 500 ML IV (19:30)
== END 2022-02-07 20:58 | disposition home or self-care (01) ==
PROVIDERS: Emergency Provider Emergency Medicine; PCP Nurse Practitioner Family
DX: R10.9 Unspecified abdominal pain (principal); R19.7 Diarrhea, unspecified; R11.2 Nausea with vomiting, unspecified; E10.22 Type 1 diabetes mellitus with diabetic chronic kidney disease; I12.9 Hypertensive chronic kidney disease with stage 1 through stage 4 chronic kidney disease, or unspecified chronic kidney disease; N18.9 Chronic kidney disease, unspecified; F17.210 Nicotine dependence, cigarettes, uncomplicated; Z20.822 Contact with and (suspected) exposure to COVID-19
CPT/HCPCS: 80053; 82009; 82274; 83630; 83690; 85025; 87493; 87506; 87635; 96361; 96372; 96374; 96375; 99284; J1630; J2270; J2405; J3490; J7030; J7040

== ENCOUNTER 2022-02-10 00:36 | Inpatient (IN) | payer BC, MEDICAID, SELFPAY ==
[2022-02-10] VITALS (20 sets, daily range): BP systolic 103–163; BP diastolic 63–105; PULSE 66–110; RESP 16–24; TEMP 36.6–37.1; O2SAT 95–100; BMI 25.4
--- NOTE | 2022-02-10 02:01 | XRR_ITS ---
PROCEDURE INFORMATION: Exam: XR Chest Exam date and time: 02/10/2022 2:05 AM Age: 36 years old Clinical indication: Shortness of breath; Additional info: SOB TECHNIQUE: Imaging protocol: Radiologic exam of the chest. Views: 1 view. COMPARISON: [place] [id number] 01/26/2022 10:58 AM FINDINGS: Lungs: There is mild bronchial wall thickening seen bilaterally. There are strandy and patchy opacities present in the lower hemithoraces bilaterally, right slightly more prominent than left possibly representing atelectasis although bilateral basilar infiltrates and pneumonia cannot be excluded. Pleural spaces: The left hemidiaphragm is partially obscured secondary to a small left pleural effusion. Heart/Mediastinum: Unremarkable. No cardiomegaly. Bones/joints: Unremarkable. XR/XR chest 1V portable [id number] IMPRESSION: 1. Small left pleural effusion 2. Bronchial wall thickening and strandy and patchy opacities present in the lower hemithoraces may represent atelectasis although bilateral basilar infiltrates and pneumonia cannot be excluded.
[2022-02-10 02:47] LABS: Basophils # 0.1 10^3/uL (0.0-0.1); Basophils % 0.7 %; Eosinophils # 0.1 10^3/uL (0.0-0.8); Eosinophils % 0.8 %; Hematocrit 31.8 % (37.0-47.0); Hemoglobin 9.7 g/dL (11.5-15.3); Lymphocytes # 1.6 10^3/uL (0.8-4.8); Lymphocytes % 16.7 %; Mean Corpuscular HGB Conc 30.5 g/dL (30.0-36.0); Mean Corpuscular Hemoglobin 27.1 pg (28.0-34.0); Mean Corpuscular Volume 88.8 fl (81-99); Mean Platelet Volume 10.7 fL (7.4-10.4); Monocytes # 0.8 10^3/uL (0.2-0.9); Monocytes % 8.1 %; Neutrophils # 7.17 10^3/uL (1.8-7.7); Neutrophils % 73.5 %; Nucleated Red Blood Cells % 0 %; Platelet Count 218 10^3/cmm (130-400); Red Blood Count 3.58 10^6/uL (4.1-5.3); Red Cell Distribution Width 16.9 % (12.1-15.1); White Blood Count 9.8 10^3/uL (4.0-10.0)
[2022-02-10 03:07] LABS: Alanine Aminotransferase 20 U/L (0-33); Albumin Level 3.1 g/dL (3.5-5.2); Alkaline Phosphatase 175 U/L (35-105); Anion Gap 15.3 (5-19); Aspartate Amino Transferase 20 U/L (0-32); Blood Urea Nitrogen 19 mg/dL (6-20); Calcium 8.2 mg/dL (8.5-10.5); Carbon Dioxide 20 mmol/L (22-29); Chloride 107 mmol/L (98-107); Globulin 3.3 g/dL (1.3-4.6); Glomerular Filtration Rate 36.7 mL/min (90-130); Glucose 353 mg/dL (65-115); Osmolality Calculated 304 mOsm/kg (285-295); Potassium 3.3 mmol/L (3.5-5.1); Sodium 139 mmol/L (136-145); Total Bilirubin 0.2 mg/dL (0.15-1.2); Total Protein 6.4 g/dL (6.6-8.7)
[2022-02-10] MEDS: FUROsemide 10 mg/mL SDV 10mL 80 MG IVP (03:40)
[2022-02-10] MEDS: ondansetron 2 mg/ML SDV 2 mL 4 MG IVP (03:40)
[2022-02-10] MEDS: morphine 4 mg/mL SDV 1 mL IVP (03:40)
--- NOTE | 2022-02-10 03:54 | W.ED.SOB ---
HPI - SOB/Dyspnea General: Chief Complaint: Shortness of Breath/Dyspnea Stated Complaint: sob Time Seen by Provider: 02/10/22 02:57 History of Present Illness: HPI Narrative: 36-year-old female with a history of insulin-dependent diabetes. She has had several admissions to the hospital, both this facility and others of late. She was diagnosed with COVID-19 on 01/22 she has been short of breath on and off since that time. She was admitted at that point. She has renal insufficiency as well. She awoke this morning significantly short of breath. She attempted to use her inhaler, without improvement. She does not have oxygen at home. She states that she has been coughing for the last 24 hours, and wheezing significantly. She does not have fever or sputum production. She has had significant diarrhea since being diagnosed with COVID. elicited complaint: shortness of breath Pertinent past history: congestive heart failure (Diastolic) Onset (ago): hour(s) Context: recent illness Timing: constant Severity: moderate Exacerbating factors: lying flat and exertion Relieving factors: nothing Known history of: congestive heart failure Associated symptoms: Reports chest congestion, chest pain, cough and nausea; Deny abdominal pain, fever(s), palpitations or vomiting Review of Systems Const: Denies: fever(s) Eyes: Denies: change in vision ENMT: Denies: throat pain Card: Reports: chest pain; Denies: palpitations Resp: Reports: dyspnea, non-productive cough and chest congestion GI: Reports: nausea; Denies: abdominal pain or vomiting : Denies: flank pain [facility] PFSH: Medical History (Updated 02/10/22 @ 20:22 by Terrence Mckeon DO) Abdominal pain Acute hyperglycemia Acute kidney injury superimposed on chronic kidney disease Anemia Anxiety Arnold-Chiari malformation Celiac disease Chronic headache Complicated UTI (urinary tract infection) COVID-19 Cystitis Diabetic gastroparesis -continue Reglan Diabetic neuropathy associated with type 1 diabetes mellitus DKA (diabetic ketoacidoses) Drug abuse Elevated lactic acid level Elevated serum creatinine Esophagitis Exposure to severe acute respiratory syndrome coronavirus 2 (SARS-CoV-2) -COVID-19 negative (PCR) History of pancreatitis HTN (hypertension) Hyperglycemia Long-term insulin use Lymphadenitis Metabolic acidosis Migraine headache Nephrotic syndrome Non-alcoholic fatty liver disease Pancreatitis PID (pelvic inflammatory disease) Pleural effusion 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 Pyelonephritis Recurrent UTI Respiratory failure Sepsis Tobacco dependence Type 1 diabetes mellitus Uncontrolled type 1 diabetes mellitus Ureterolithiasis Surgical History History of cholecystectomy History of endoscopy History of lung surgery -s/p LLL lobectomy secondary to cavitary pneumonia (2017) Family History Grandfather Diabetes Other Heart disease Hypertension Social History Smoking and tobacco status: current every day smoker cigarettes Packs smoked per day: 0.5 Second hand smoke exposure: Yes Alcohol intake: never Household members: children Housing: House Marital status: Single Current occupational status: unemployed Female Reproductive History: Date of last menstrual period: 11/23/20 Physical Exam Const: GENERAL APPEARANCE: cooperative, in distress, ill appearing and frail appearing HENMT: COMMON NORMALS: normocephalic, atraumatic and Normal external nose present HEAD & SCALP: normocephalic and atraumatic FACE & SINUS: normal facial exam and face symmetric NOSE: Normal external nose present Eye: COMMON NORMALS: Equal, round and reactive pupils present and EOMs intact bilaterally PUPIL: Yes Equal, round and reactive pupils present Chest: CHEST: Yes Symmetrical chest wall rise Resp: EFFORT & INSPECTION: Yes tachypneic, Yes respiratory distress, Yes Actively coughing, Yes uses accessory muscles and No tracheal deviation AUSCULTATION: rales, rhonchi and wheezes Cardio: COMMON NORMALS: regular rate RATE: regular rate GI: COMMON NORMALS: Normal to inspection, nondistended, normoactive bowel sounds present, Soft to palpation and non-tender PALPATION: Yes Soft to palpation Extremity: GENERAL: Yes edema (1-2+) Neuro: OLU COMA SCALE: document GCS findings Olu coma scale eye opening: Spontaneous [place] coma scale verbal response: Orientated [place] coma scale motor response: Obey commands Olu coma scale total score: 15 Course Vital Signs: Vital signs: Vital Signs Temperature 97.6 F 02/11/22 15:45 Pulse Rate 85 02/11/22 15:45 Respiratory Rate 16 02/11/22 15:45 Blood Pressure 125/80 02/11/22 15:45 Pulse Oximetry 99 02/11/22 15:45 Oxygen Delivery Me thod 02/11/22 15:45 Oxygen Flow Rate 2 02/11/22 15:45 MDM - SOB/Dyspnea Medical Decision Making 36-year-old female with diabetes, renal insufficiency, diastolic heart failure. She presents short of breath. She is wheezing on exam. She is having some chest discomfort. She does not have a history of heart disease. Her oxygen saturation has been as low as 82% here in the ER on room air. She is currently 93% on 2 L of oxygen, and breathing has improved. Her hemoglobin is 9.7 which is stable for her. Her creatinine is 1.6 which is mildly improved. She has mild hypokalemia. Her blood sugar is 353 chest x-ray shows patchy bilateral infiltrates that are likely pulmonary edema. She is giving nebulizer treatments here as well as furosemide. With an oxygen requirement, she will require admission. Lab Data : 02/11/22 04:22 02/11/22 04:22 Labs/Radiology: Radiology Impressions Chest X-Ray 02/10/22 02:01 IMPRESSION: 1. Small left pleural effusion 2. Bronchial wall thickening and strandy and patchy opacities present in the lower hemithoraces may represent atelectasis although bilateral basilar infiltrates and pneumonia cannot be excluded. Venous Duplex 02/10/22 04:28 IMPRESSION: No evidence of deep vein thrombosis. Laboratory Results WBC 9.8 10^3/uL (4.0-10.0) 02/10/22 02:41 RBC 3.58 10^6/uL (4.1-5.3) L 02/10/22 02:41 Hgb 9.7 g/dL (11.5-15.3) L 02/10/22 02:41 Hct 31.8 % (37.0-47.0) L 02/10/22 02:41 MCV 88.8 fl (81-99) 02/10/22 02:41 MCH 27.1 pg (28.0-34.0) L 02/10/22 02:41 MCHC 30.5 g/dL (30.0-36.0) 02/10/22 02:41 RDW 16.9 % (12.1-15.1) H 02/10/22 02:41 Plt Count 218 10^3/cmm (130-400) 02/10/22 02:41 MPV 10.7 fL (7.4-10.4) H 02/10/22 02:41 Neut % (Auto) 73.5 % 02/10/22 02:41 Lymph % (Auto) 16.7 % 02/10/22 02:41 [place] % (Auto) 8.1 % 02/10/22 02:41 Eos % (Auto) 0.8 % 02/10/22 02:41 Baso % (Auto) 0.7 % 02/10/22 02:41 Neut # (Auto) 7.17 10^3/uL (1.8-7.7) 02/10/22 02:41 Lymph # (Auto) 1.6 10^3/uL (0.8-4.8) 02/10/22 02:41 [place] # (Auto) 0.8 10^3/uL (0.2-0.9) 02/10/22 02:41 Eos # (Auto) 0.1 10^3/uL (0.0-0.8) 02/10/22 02:41 Baso # (Auto) 0.1 10^3/uL (0.0-0.1) 02/10/22 02:41 Nucleated RBC % (auto) 0 % 02/10/22 02:41 Nucleated RBCs # 0.0 /100WBC 02/10/22 02:41 Sodium 139 mmol/L (136-145) 02/10/22 02:41 Potassium 3.3 mmol/L (3.5-5.1) L 02/10/22 02:41 Chloride 107 mmol/L (98-107) 02/10/22 02:41 Carbon Dioxide 20 mmol/L (22-29) L 02/10/22 02:41 Anion Gap 15.3 (5-19) 02/10/22 02:41 BUN 19 mg/dL (6-20) 02/10/22 02:41 Creatinine 1.6 mg/dL (0.5-0.9) H 02/10/22 02:41 GFR Calculation 36.7 mL/min (90-130) L 02/10/22 02:41 Glucose 353 mg/dL (65-115) H 02/10/22 02:41 Estimat Average Glucose 243 02/10/22 02:41 Hemoglobin A1c 10.1 % (4.0-6.0) H 02/10/22 02:41 Calculated Osmolality 304 mOsm/kg (285-295) H 02/10/22 02:41 Calcium 8.2 mg/dL (8.5-10.5) L 02/10/22 02:41 Total Bilirubin 0.2 mg/dL (0.15-1.2) 02/10/22 02:41 AST 20 U/L (0-32) 02/10/22 02:41 ALT 20 U/L (0-33) 02/10/22 02:41 Alkaline Phosphatase 175 U/L (35-105) H 02/10/22 02:41 Total Protein 6.4 g/dL (6.6-8.7) L 02/10/22 02:41 Albumin 3.1 g/dL (3.5-5.2) L 02/10/22 02:41 Globulin 3.3 g/dL (1.3-4.6) 02/10/22 02:41 Ser , Semi-Qnt 0.50 mIU/mL 02/10/22 02:41 Discharge Plan Discharge Patient Disposition: Admitted As Inpatient Admit Provider: Shola Carrera Clinical Impression: Respiratory failure, Pulmonary edema Condition: Stable Coding Level of Care Code ED Contractor General Engineering for Chg Fwd Exam Comprehensive
[2022-02-10] MEDS: ipratropium-albuterol 3 mL Neb INHALATION ×5 (04:06→21:25)
--- NOTE | 2022-02-10 04:28 | ECG_ITS ---
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 Measurements Intervals [place] Rate: 86 P: 69 [place]: 164 QRS: 101 QRSD: 103 T: 134 QT: 381 QTc: 457 Interpretive Statements SINUS RHYTHM RIGHT AXIS DEVIATION [QRS AXIS > 100] NONSPECIFIC T-WAVE ABNORMALITY Compared to ECG 01/25/2022 14:20:15 Right-axis deviation now present T-wave abnormality now present Myocardial infarct finding no longer present Electronically Signed On 02-10-2022 13:34:27 CDT by Maame Montero M.D. [id number]
--- NOTE | 2022-02-10 04:28 | USR_ITS ---
PROCEDURE INFORMATION: Exam: US Duplex Lower Extremity Veins, Bilateral Exam date and time: 02/10/2022 5:17 AM Age: 36 years old Clinical indication: Edema, localized; Upper extremity, bilateral; Additional info: Dvt TECHNIQUE: Imaging protocol: Real-time Duplex ultrasound of the bilateral extremities with 2-D florentino scale, color Doppler flow and spectral waveform analysis with image documentation. Complete exam focused on the bilateral lower extremity veins. COMPARISON: US ROR venous duplex LE RT 11/19/2017 2:32 PM FINDINGS: Right deep veins: Unremarkable. The common femoral, femoral, proximal profunda femoral and popliteal veins are patent without thrombus. Normal Doppler waveforms. Normal compressibility and/or augmentation response. Right superficial veins: Saphenofemoral junction is patent without thrombus. Left deep veins: Unremarkable. The common femoral, femoral, proximal profunda femoral and popliteal veins are patent without thrombus. Normal Doppler waveforms. Normal compressibility and/or augmentation response. Left superficial veins: Saphenofemoral junction is patent without thrombus. Soft tissues: Unremarkable. US/CV venous duplex [facility] [id number] IMPRESSION: No evidence of deep vein thrombosis.
--- NOTE | 2022-02-10 04:29 | PM.HP ---
Providers/Chief Complaint Primary Care Provider: SUZANNE Dias Chief Complaint: sob History of Present Illness Donita Aguilar is a 36 year old female with a past medical history for left lower lobe lobectomy for cavitary pneumonia, history of polysubstance abuse, insulin-dependent type 2 diabetes mellitus, history of diabetic nephropathy, recently hospitalized for COVID-19 pneumonia, ERICA on CKD, who presents [facility] due to shortness of breath. Patient tells me that she has been doing well, today her decided to go camping, she is doing well, she thinks that that he did get to her, so she went into her tent to sleep. Her states that when she was sleeping, she was gasping for air, and she woke up complaining of shortness of breath, she tells me that she has trouble lying down due to shortness of breath, she also has some chest tightness when lying down, she feels better when sitting up, no fevers, no chills, no cough, does have bilateral extremity edema, no calf pain, no calf swelling, does report smoking, does report using Review of Systems Card: Denies: chest pain or palpitations Resp: Reports: dyspnea GI: Denies: abdominal pain Medications/Allergies Home Medications Medication Instructions Recorded Confirmed Last Taken Type glucagon HCl 1 mg solution for 1 mg SUBCUT Q20M PRN hypoglycemia 08/22/20 02/07/22 Unknown Rx injection (Glucagon (HCl) #3 ea Emergency Kit) diphenhydramine HCl 25 mg tablet 25 mg PO BEDTIME 01/22/22 02/07/22 01/21/22 History (Benadryl Allergy) insulin aspart U-100 100 unit/mL See Rx Instructions .Route .COMPLEX 01/22/22 02/07/22 02/07/22 History (3 mL) subcutaneous pen (Novolog 6 units Flexpen U-100 Insulin aspart) ondansetron 4 mg disintegrating 4 mg PO Q6H PRN nausea and 01/25/22 02/07/22 Unknown Rx tablet vomiting #14 tabs furosemide 20 mg tablet 20 mg PO DAILY@0800 PRN Weight 01/29/22 02/07/22 Unknown Rx gain #30 tabs insulin glargine 100 unit/mL (3 15 unit (0.15 mL) SUBCUT BID #15 mL 08/02/1202/07/22 02/07/22 Rx mL) subcutaneous pen (Lantus Solostar U-100 Insulin) amoxicillin 500 mg-potassium 1 tab PO BID #14 tabs 02/04/22 02/07/22 Unknown Rx clavulanate 125 mg tablet (Augmentin) metoclopramide HCl 10 mg tablet 10 mg PO Q6H PRN nausea and 02/05/22 02/07/22 Unknown Rx (Reglan) vomiting #20 tabs albuterol sulfate 90 mcg/actuation 2 puff inhalation Q8H PRN 02/07/22 02/07/22 Unknown History aerosol inhaler shortness of breath or wheezing bismuth subsalicylate 262 mg 2 tab PO Q1H PRN Heartburn 02/07/22 02/07/22 02/07/22 History tablet (Pepto-Bismol) calcium carbonate 1,000 1 tab PO TID PRN abdominal pain 7 02/07/22 Unknown Rx mg-simethicone 60 mg chewable days #21 tabs tablet (Maalox Advanced) famotidine 20 mg tablet (Pepcid) 20 mg PO BID PRN abdominal pain 10 02/07/22 Unknown Rx days #20 tabs metoclopramide HCl 5 mg tablet 5 mg PO BID PRN nausea and 02/07/22 Unknown Rx (Reglan) vomiting 5 days #10 tabs pantoprazole 40 mg tablet,delayed 40 mg PO DAILY@12 02/07/22 02/07/22 Unknown History release tamsulosin 0.4 mg capsule 0.4 mg PO BEDTIME 02/07/22 02/07/22 Unknown History Allergies Allergy/AdvReac Type Severity Reaction Status Date / Time acetaminophen AdvReac Mild ADR-Gastrointestinal Verified 02/07/22 15:29 Upset PFSH Acute PFSH: Medical History Abdominal pain Acute hyperglycemia Acute kidney injury superimposed on chronic kidney disease Anemia Anxiety Arnold-Chiari malformation Celiac disease Chronic headache Complicated UTI (urinary tract infection) COVID-19 Cystitis Diabetes mellitus Diabetic gastroparesis -continue Reglan Diabetic neuropathy associated with type 1 diabetes mellitus DKA (diabetic ketoacidoses) Drug abuse Elevated lactic acid level Elevated serum creatinine Esophagitis Exposure to severe acute respiratory syndrome coronavirus 2 (SARS-CoV-2) -COVID-19 negative (PCR) History of pancreatitis HTN (hypertension) Hyperglycemia Long-term insulin use Lymphadenitis Metabolic acidosis Migraine headache Nephrotic syndrome Non-alcoholic fatty liver disease Pancreatitis PID (pelvic inflammatory disease) Pleural effusion 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 Pyelonephritis Recurrent UTI Respiratory failure Sepsis Tobacco dependence Type 1 diabetes mellitus Uncontrolled type 1 diabetes mellitus Ureterolithiasis Surgical History History of cholecystectomy History of endoscopy History of lung surgery -s/p LLL lobectomy secondary to cavitary pneumonia (2017) Family History Grandfather Diabetes Other Heart disease Hypertension Social History Smoking and tobacco status: current every day smoker cigarettes Packs smoked per day: 0.5 Second hand smoke exposure: Yes Alcohol intake: never Household members: children Housing: House Marital status: Single Current occupational status: unemployed Female Reproductive History: Date of last menstrual period: 11/23/20 Vitals/I&O/Wt Last Vital Signs Temp 98.4 F 02/10/22 02:32 Pulse 83 02/10/22 04:08 Resp 18 02/10/22 04:08 BP 143/95 02/10/22 03:50 Pulse Ox 96 02/10/22 04:08 O2 Del Method 02/10/22 04:08 O2 Flow Rate 2 02/10/22 04:08 Weight last 48 hrs Weight 58.967 kg Physical Exam Const: COMMON NORMALS: no acute distress and patient oriented x3 HENMT: COMMON NORMALS: normocephalic HEAD & SCALP: normocephalic Eye: COMMON NORMALS: Equal, round and reactive pupils present and EOMs intact bilaterally Lymph: LYMPHATIC: no lymphadenopathy noted Resp: EFFORT & INSPECTION: Yes able to speak in complete sentences AUSCULTATION: wheezes expiratory wheezes, inspiratory wheezes and throughout and No rub present Cardio: COMMON NORMALS: regular rate, regular rhythm, S1 normal heart sound present and S2 normal heart sound present RATE: regular rate RHYTHM: regular rhythm HEART SOUNDS: S1 normal heart sound present and S2 normal heart sound present GI: COMMON NORMALS: Normal to inspection, nondistended, normoactive bowel sounds present, Soft to palpation and non-tender Extremity: NARRATIVE EXTREMITY EXAM: 2+ pitting edema bilateral extremity, no calf pain, no calf tenderness Neuro: COMMON NORMALS: patient oriented x3, CN's II-XII intact bilaterally, moves all extremities and no focal motor deficits Psych: COMMON NORMALS: mental status grossly normal Data : 02/10/22 02:41 02/10/22 02:41 A&P Assessment and plan (1) COPD exacerbation: Status: Acute (2) Pulmonary edema: Status: Acute (3) CKD (chronic kidney disease): Status: Acute Plan Shortness of breath -Multifactorial from fluid overload, COPD exacerbation Plan -Continue Lasix 40 IV twice daily -Creatinine 1.6, monitor urine output, monitor potassium -Potassium replacement -Fluid restrictions 1200 cc -Solu-Medrol, budesonide, ipratropium -Pro-[place], CRP, sputum cultures, blood cultures -Recent history of COVID-19 infection, D-dimer, venous ultrasound -Denies being , Nexplanon in place, serum hCG -Full code -Lovenox for DVT prophylaxis Type II days mellitus, continue Lantus 15 units, twice daily, moderate dose sliding scale Attestations Medical Necessity Statement*: Patient requires hospitalization for shortness of breath secondary to COPD, CHF Coding Level of Care Code Acute Bobtailer for Reji Fwtanner Diagnoses COPD exacerbation J44.1 Pulmonary edema J81.1 CKD (chronic kidney disease) N18.9
[2022-02-10 07:13] LABS: D Dimer 0.87 ug/mIFEU (0-0.59)
[2022-02-10 07:29] LABS: Troponin(5th) Baseline 66 ng/L (0-10)
[2022-02-10 07:31] LABS: Procalcitonin 0.11 ng/mL (0-0.5)
--- NOTE | 2022-02-10 07:40 | ECG_ITS ---
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 Measurements Intervals [place] Rate: 85 P: 64 OR: 166 QRS: 93 QRSD: 104 T: 138 QT: 394 QTc: 469 Interpretive Statements SINUS RHYTHM BORDERLINE RIGHT AXIS DEVIATION [QRS AXIS > 90] NONSPECIFIC ST & T-WAVE ABNORMALITY Compared to ECG 02/10/2022 02:52:51 No significant changes Electronically Signed On 02-10-2022 13:35:09 CDT by Maame Montero M.D. [id number]
--- NOTE | 2022-02-10 07:43 | PC.NURSE ---
pt states bc in arm preventing period
[2022-02-10 07:44] LABS: Magnesium 1.6 mg/dL (1.7-2.3); Phosphorus 3.7 mg/dL (2.5-4.5)
[2022-02-10 08:06] LABS: Glucose Point of Care 381 mg/dL (70-110)
[2022-02-10] MEDS: budesonide 0.5 mg/2 mL Neb INHALATION ×2 (08:15→21:25)
[2022-02-10] MEDS: potassium chloride ER 20 mEq Tablet 40 MEQ PO (08:37)
[2022-02-10] MEDS: enoxaparin 40 mg/0.4 mL Syringe SUBCUT (08:37)
[2022-02-10] MEDS: insulin glargine 100 units/1 mL 15 UNIT SUBCUT ×2 (08:37→20:45)
[2022-02-10] MEDS: insulin lispro 100 unit/1 mL SUBCUT ×4 (08:38→20:45)
[2022-02-10] MEDS: ketorolac 30 mg/mL INJ 15 MG IVP ×2 (09:08→18:16)
[2022-02-10 09:31] LABS: Estmated Average Glucose 243; Hemoglobin A1C 10.1 % (4.0-6.0)
[2022-02-10 09:31] LABS: Troponin 5 2HR 65.87 ng/L (0-10)
[2022-02-10 09:33] LABS: Thyroid Stimulating Hormone 3.26 uIU/mL (0.27-4.20)
[2022-02-10 09:35] LABS: Troponin 5 2HR Delta -0.13 ABS# (0-10)
[2022-02-10] MEDS: magnesium sulfate premix 4 GM/100 ML PREMIX IV (09:42)
--- NOTE | 2022-02-10 10:16 | ECG_ITS ---
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 Measurements Intervals [place] Rate: 84 P: 73 RI: 168 QRS: 104 QRSD: 100 T: 140 QT: 390 QTc: 461 Interpretive Statements SINUS RHYTHM RIGHT AXIS DEVIATION [QRS AXIS > 100] MODERATE T-WAVE ABNORMALITY, CONSIDER LATERAL ISCHEMIA [-0.1+ mV T-WAVE IN I/aVL/V5/V6] Compared to ECG 02/10/2022 06:02:33 Possible ischemia now present T-wave abnormality still present Electronically Signed On 02-10-2022 13:34:41 CDT by Maame Montero M.D. [email or web address] [email or web address] behavioral [email or web address] mississippiPulsar [facility]sum[id number]
[2022-02-10 11:34] LABS: Glucose Point of Care 295 mg/dL (70-110)
[2022-02-10] MEDS: pantoprazole DR 40 mg Tablet PO (11:45)
[2022-02-10 13:56] LABS: Troponin 5 6HR 58.93 ng/L (0-10)
[2022-02-10 13:57] LABS: Troponin 5 6HR Delta -7.07 ng/L (0-12)
[2022-02-10] MEDS: FUROsemide 10 mg/mL SDV 4mL 40 MG IVP (14:06)
[2022-02-10 16:58] LABS: Glucose Point of Care 307 mg/dL (70-110)
--- NOTE | 2022-02-10 20:15 | P.PN_ITS ---
Subjective Subjective: Complains of shortness of breath chest tightness pain with breathing. Also complains of abdominal pain after eating. Vitals/I&O/Wt Last Vital Signs Temp 98.8 F 02/10/22 20:00 Pulse 103 H 02/10/22 20:00 Resp 24 H 02/10/22 20:00 BP 158/105 02/10/22 20:00 Pulse Ox 96 02/10/22 20:00 O2 Del Method 02/10/22 16:00 O2 Flow Rate 1 02/10/22 15:44 02/10/22 02/10/22 02/10/22 06:59 14:59 22:59 Intake Total 100 / 100 240 / 340 Output Total 1800 / 1800 Balance -1700 / -1700 240 / -1460 Weight last 48 hrs Weight 58.967 kg Physical Exam Narrative: Patient seen sitting in bed leaning forward. Shortness of breath at rest. Using abdominal muscles to breathe appears older than her stated age appears acutely ill with underlying chronic conditions. Heart regular normal S1-S2 tachycardic. Lungs diffuse crackles bilateral bases with rhonchi heard in the left upper posterior lung abdomen soft nontender nondistended positive bowel sounds Extremities +2 pitting edema to knees. Data : 02/10/22 02:41 02/10/22 02:41 Micro: Microbiology 02/10/22 06:49 Blood Culture - Preliminary Blood SPECIMEN COLLECTED 02/10/22 06:41 Blood Culture - Preliminary Blood SPECIMEN COLLECTED A&P Assessment and plan (1) COPD exacerbation: Suspect COPD. Continue steroids nebulizers. Add back Augmentin. For the treatment of possible acute bronchitis. Chest x-ray reviewed do not appreciate an infiltrate. Status: Acute (2) Pulmonary edema: Continue Lasix IV 40 mg every 12 hours. Good urine output Add Roxanol as needed this will help remove fluid treat symptoms and alleviate some pain. Status: Acute (3) CKD (chronic kidney disease): BUN is normal. Creatinine is likely close to baseline. Status: Acute (4) Abdominal pain: Patient has been seen here recently for abdominal pain placed on Pepcid, Pepto- Bismol, Maalox as needed. Will prescribe Mylanta as needed give a dose now. After reviewing past medical history it is likely patient has gastroparesis. There is a note in her history that she was on Reglan however I do not see this in her active home medications. We will restart. Status: Acute (5) Type 1 diabetes mellitus: Home insulin dose of Lantus 15 units twice daily plus sliding scale. Status: Acute (6) Diabetic neuropathy associated with type 1 diabetes mellitus: Status: Chronic Qualifiers: Diabetes mellitus complication detail: diabetic polyneuropathy Qualified Code(s): E10.42 - Type 1 diabetes mellitus with diabetic polyneurop athy (7) Diabetic gastroparesis: As above Reglan 4 times daily. Status: Acute Attestations Medical Necessity Statement*: Patient requires hospitalization for shortness of breath secondary to COPD, CHF Coding Level of Care Code Acute Retail Operations Specialist for [facility] Fwd Diagnoses COPD exacerbation J44.1 Pulmonary edema J81.1 CKD (chronic kidney disease) N18.9 Abdominal pain R10.9 Type 1 diabetes mellitus E10.9 Diabetic neuropathy associated with type 1 diabetes mellitus E10.42 Diabetes mellitus complication detail: diabetic polyneuropathy Diabetic gastroparesis E11.43; K31.84
[2022-02-10] MEDS: morphine 10 mg/0.5 mL oral liq UD 5 MG PO ×2 (20:34→22:48)
[2022-02-10] MEDS: diphenhydrAMINE 25 mg Capsule PO (20:34)
[2022-02-10] MEDS: tamsulosin 0.4 mg Capsule PO (20:34)
[2022-02-10 20:41] LABS: Glucose Point of Care 465 mg/dL (70-110)
--- NOTE | 2022-02-10 22:44 | PC.NURSE ---
Spoke with regarding patients complaints of pain and is not due for pain medications. ordered to give roxanol dose early now.
[2022-02-11] VITALS (16 sets, daily range): BP systolic 125–159; BP diastolic 68–93; PULSE 80–104; RESP 16–20; TEMP 36.4–37; O2SAT 95–99
[2022-02-11] MEDS: FUROsemide 10 mg/mL SDV 4mL 40 MG IVP ×2 (03:46→08:58)
[2022-02-11] MEDS: ketorolac 30 mg/mL INJ 15 MG IVP ×3 (03:53→19:44)
[2022-02-11] MEDS: ondansetron 2 mg/ML SDV 2 mL 4 MG IVP ×2 (05:58→08:36)
[2022-02-11 06:01] LABS: Glucose Point of Care 299 mg/dL (70-110)
[2022-02-11 06:01] LABS: Basophils % 0.1 %; Hematocrit 33.1 % (37.0-47.0); Hemoglobin 10.1 g/dL (11.5-15.3); Lymphocytes # 1.1 10^3/uL (0.8-4.8); Lymphocytes % 8.6 %; Mean Corpuscular HGB Conc 30.5 g/dL (30.0-36.0); Mean Corpuscular Hemoglobin 26.1 pg (28.0-34.0); Mean Corpuscular Volume 85.5 fl (81-99); Mean Platelet Volume 11.1 fL (7.4-10.4); Monocytes # 0.5 10^3/uL (0.2-0.9); Monocytes % 3.9 %; Neutrophils # 10.99 10^3/uL (1.8-7.7); Neutrophils % 87.2 %; Nucleated Red Blood Cells % 0 %; Platelet Count 242 10^3/cmm (130-400); Red Blood Count 3.87 10^6/uL (4.1-5.3); Red Cell Distribution Width 17.4 % (12.1-15.1); White Blood Count 12.6 10^3/uL (4.0-10.0)
[2022-02-11 06:24] LABS: Alanine Aminotransferase 19 U/L (0-33); Albumin Level 3.2 g/dL (3.5-5.2); Alkaline Phosphatase 181 U/L (35-105); Anion Gap 18.5 (5-19); Aspartate Amino Transferase 16 U/L (0-32); Blood Urea Nitrogen 31 mg/dL (6-20); Calcium 8.9 mg/dL (8.5-10.5); Carbon Dioxide 22 mmol/L (22-29); Chloride 103 mmol/L (98-107); Globulin 4.1 g/dL (1.3-4.6); Glomerular Filtration Rate 28.4 mL/min (90-130); Glucose 285 mg/dL (65-115); Osmolality Calculated 305 mOsm/kg (285-295); Potassium 4.5 mmol/L (3.5-5.1); Sodium 139 mmol/L (136-145); Total Bilirubin 0.2 mg/dL (0.15-1.2); Total Protein 7.3 g/dL (6.6-8.7)
[2022-02-11] MEDS: ipratropium-albuterol 3 mL Neb INHALATION ×4 (08:14→19:57)
[2022-02-11] MEDS: budesonide 0.5 mg/2 mL Neb INHALATION ×2 (08:14→19:57)
[2022-02-11] MEDS: insulin lispro 100 unit/1 mL SUBCUT ×5 (08:37→21:38)
[2022-02-11] MEDS: amoxicillin-clav 500-125 mg Tablet 1 TAB PO ×2 (08:37→17:02)
[2022-02-11] MEDS: enoxaparin 40 mg/0.4 mL Syringe SUBCUT (08:37)
[2022-02-11] MEDS: insulin glargine 100 units/1 mL 15 UNIT SUBCUT (08:37)
[2022-02-11] MEDS: morphine 10 mg/0.5 mL oral liq UD 5 MG PO (08:38)
[2022-02-11] MEDS: azithromycin 250 mg Tablet 500 MG PO (08:58)
[2022-02-11] MEDS: cefdinir 300 MG CAPSULE PO ×2 (09:00→17:02)
[2022-02-11 11:23] LABS: Glucose Point of Care 294 mg/dL (70-110)
[2022-02-11] MEDS: pantoprazole DR 40 mg Tablet PO (12:44)
[2022-02-11] MEDS: FUROsemide 10 mg/mL SDV 4mL 80 MG IVP (15:12)
[2022-02-11 17:14] LABS: Glucose Point of Care 316 mg/dL (70-110)
--- NOTE | 2022-02-11 17:32 | PM.PN ---
Subjective Subjective: Called by RN for continued shortness of breath. Given extra dose of Lasix. By the time I saw patient she was sleeping comfortably. Vitals/I&O/Wt Last Vital Signs Temp 97.6 F 02/11/22 15:45 Pulse 104 H 02/11/22 16:16 Resp 18 02/11/22 16:12 BP 125/80 02/11/22 15:45 Pulse Ox 98 02/11/22 16:12 O2 Del Method 02/11/22 16:12 O2 Flow Rate 2 02/11/22 16:12 02/11/22 02/11/22 02/11/22 06:59 14:59 22:59 Intake Total 1480 / 1820 360 / 360 Output Total 1300 / 3100 Balance 180 / -1280 360 / 360 Weight last 48 hrs Weight 58.967 kg Physical Exam Narrative: Patient sleeping comfortably. Upon wakening still with increased respirations and mild shortness of breath with talking. appears much older than her stated age. Chronically ill-appearing. Heart regular normal S1-S2 mildly tachycardic Lungs diffuse crackles bilateral bases with rhonchi heard in the left upper posterior lung abdomen soft nontender nondistended positive bowel sounds Extremities +2 pitting edema to knees. Data : 02/11/22 04:22 02/11/22 04:22 Micro: Microbiology 02/11/22 02:40 Gram Stain - Final Sputum - Expectorated Sputum 02/10/22 06:49 Blood Culture - Preliminary Blood NEGATIVE TO DATE 02/10/22 06:41 Blood Culture - Preliminary Blood NEGATIVE TO DATE A&P Assessment and plan (1) COPD exacerbation: Suspect COPD. Continue steroids nebulizers. Add back Augmentin. For the treatment of possible acute bronchitis. Chest x-ray reviewed do not appreciate an infiltrate. Status: Acute (2) Pulmonary edema: Continue Lasix IV 40 mg every 12 hours. Given extra dose of Lasix today. Patient was -1.2 L yesterday. Consider increasing dose of Lasix to 3 times daily or 80 mg every 12. Roxanol was added yesterday however unclear if this was given. Status: Acute (3) CKD (chronic kidney disease): Kidney function is starting to bump with aggressive diuresis. Will tolerate some worsening. Will follow. Status: Acute (4) Abdominal pain: Patient has been seen here recently for abdominal pain placed on Pepcid, Pepto-Bismol, Maalox as needed. Will prescribe Mylanta as needed give a dose now. After reviewing past medical history it is likely patient has gastroparesis. Restarted Reglan. Status: Acute (5) Type 1 diabetes mellitus: Uncontrolled blood sugars. Hemoglobin A1c was just over 10. Increase Lantus to 20 units twice daily add a prandial Humalog with sliding scale in addition. Will need tighter control Status: Acute (6) Diabetic neuropathy associated with type 1 diabetes mellitus: Status: Chronic Qualifiers: Diabetes mellitus complication detail: diabetic polyneuropathy Qualified Code(s): E10.42 - Type 1 diabetes mellitus with diabetic polyneuropathy (7) Diabetic gastroparesis: As above Reglan 4 times daily. Status: Acute Attestations Medical Necessity Statement*: Patient requires hospitalization for shortness of breath secondary to COPD, CHF Coding Level of Care Code Acute Test Lead for [facility] Diagnoses COPD exacerbation J44.1 Pulmonary edema J81.1 CKD (chronic kidney disease) N18.9 Abdominal pain R10.9 Type 1 diabetes mellitus E10.9 Diabetic neuropathy associated with type 1 diabetes mellitus E10.42 Diabetes mellitus complication detail: diabetic polyneuropathy Diabetic gastroparesis E11.43; K31.84
[2022-02-11 21:12] LABS: Glucose Point of Care 355 mg/dL (70-110)
[2022-02-11] MEDS: diphenhydrAMINE 25 mg Capsule PO (21:37)
[2022-02-11] MEDS: insulin glargine 100 units/1 mL 20 UNIT SUBCUT (21:37)
[2022-02-11] MEDS: tamsulosin 0.4 mg Capsule PO (21:37)
[2022-02-12] VITALS (14 sets, daily range): BP systolic 123–143; BP diastolic 77–93; PULSE 82–106; RESP 15–20; TEMP 36.6–36.9; O2SAT 95–99
[2022-02-12] MEDS: FUROsemide 10 mg/mL SDV 4mL 80 MG IVP ×2 (03:29→14:12)
[2022-02-12 05:11] LABS: Basophils % 0.1 %; Hematocrit 29.9 % (37.0-47.0); Hemoglobin 9.1 g/dL (11.5-15.3); Lymphocytes # 1.4 10^3/uL (0.8-4.8); Lymphocytes % 10.5 %; Mean Corpuscular HGB Conc 30.4 g/dL (30.0-36.0); Mean Corpuscular Hemoglobin 26.6 pg (28.0-34.0); Mean Corpuscular Volume 87.4 fl (81-99); Mean Platelet Volume 11.1 fL (7.4-10.4); Monocytes # 0.7 10^3/uL (0.2-0.9); Monocytes % 4.8 %; Neutrophils # 11.37 10^3/uL (1.8-7.7); Neutrophils % 84.3 %; Nucleated Red Blood Cells % 0 %; Platelet Count 214 10^3/cmm (130-400); Red Blood Count 3.42 10^6/uL (4.1-5.3); Red Cell Distribution Width 17.6 % (12.1-15.1); White Blood Count 13.5 10^3/uL (4.0-10.0)
[2022-02-12 05:33] LABS: Alanine Aminotransferase 15 U/L (0-33); Alkaline Phosphatase 146 U/L (35-105); Anion Gap 16.4 (5-19); Aspartate Amino Transferase 12 U/L (0-32); Blood Urea Nitrogen 50 mg/dL (6-20); Calcium 8.9 mg/dL (8.5-10.5); Carbon Dioxide 24 mmol/L (22-29); Chloride 102 mmol/L (98-107); Globulin 3.2 g/dL (1.3-4.6); Glomerular Filtration Rate 21.9 mL/min (90-130); Glucose 160 mg/dL (65-115); Osmolality Calculated 301 mOsm/kg (285-295); Potassium 5.4 mmol/L (3.5-5.1); Sodium 137 mmol/L (136-145); Total Bilirubin 0.2 mg/dL (0.15-1.2); Total Protein 6.2 g/dL (6.6-8.7)
[2022-02-12 05:34] LABS: Creatinine Clr Calc Pharmacy 25.2314
[2022-02-12 06:39] LABS: Glucose Point of Care 194 mg/dL (70-110)
[2022-02-12] MEDS: ipratropium-albuterol 3 mL Neb INHALATION ×4 (07:43→21:23)
[2022-02-12] MEDS: budesonide 0.5 mg/2 mL Neb INHALATION ×2 (07:43→21:23)
[2022-02-12] MEDS: insulin lispro 100 unit/1 mL SUBCUT ×7 (07:58→21:31)
[2022-02-12] MEDS: enoxaparin 40 mg/0.4 mL Syringe SUBCUT (09:25)
[2022-02-12] MEDS: insulin glargine 100 units/1 mL 20 UNIT SUBCUT ×2 (09:25→18:23)
[2022-02-12] MEDS: azithromycin 250 mg Tablet 500 MG PO (09:25)
[2022-02-12] MEDS: amoxicillin-clav 500-125 mg Tablet 1 TAB PO ×2 (09:25→17:57)
[2022-02-12] MEDS: cefdinir 300 MG CAPSULE PO (11:07)
[2022-02-12 11:20] LABS: Glucose Point of Care 218 mg/dL (70-110)
[2022-02-12] MEDS: pantoprazole DR 40 mg Tablet PO (12:01)
[2022-02-12 13:07] LABS: Glucose Point of Care 257 mg/dL (70-110)
[2022-02-12] MEDS: ketorolac 30 mg/mL INJ 15 MG IVP ×2 (14:28→23:40)
[2022-02-12] MEDS: metOLazone 5 MG Tablet PO (16:10)
[2022-02-12 17:06] LABS: Glucose Point of Care 279 mg/dL (70-110)
[2022-02-12 17:16] LABS: Influenza A by IFA Negative (Negative); Influenza B by IFA Negative (Negative); SARS Covid-2 Antigen Negative (Negative)
--- NOTE | 2022-02-12 18:00 | PM.PN ---
Subjective Subjective: Hospital course, labs appreciated. No acute events overnight. Examination patient lying comfortably in bed. States breathing is still difficult but a lot better than when she came in. Currently on 3 to 4 L. Urine output not appropriately charted. On review of chart patient's blood cultures have remained negative both in current and prior admission. Patient was found to have a EF of 50 to 55% with regional wall motion abnormality. These findings were new on previous admission. On previous admission patient was also found to have a neurogenic bladder which was confirmed by placement of catheter and evacuation of more than a liter of urine. Patient did not have nephrotic syndrome after 24-hour protein urine checked. Vitals/I&O/Wt Last Vital Signs Temp 98.3 F 02/12/22 16:00 Pulse 96 02/12/22 16:00 Resp 18 02/12/22 16:00 BP 135/85 02/12/22 16:00 Pulse Ox 99 02/12/22 16:00 O2 Del Method 02/12/22 16:00 O2 Flow Rate 2 02/12/22 15:54 02/12/22 02/12/22 02/12/22 06:59 14:59 22:59 Intake Total 0 / 1160 600 / 600 480 / 1080 Output Total 1000 / 1600 Balance -1000 / -440 600 / 600 480 / 1080 Physical Exam Narrative: AOx3, no acute distress, pallor present chronically ill-appearing. Heart regular normal S1-S2 mildly tachycardic Lungs diffuse crackles bilateral bases with rhonchi heard in the left upper posterior lung abdomen soft nontender nondistended positive bowel sounds Extremities +2 pitting edema to knees. Urinary Catheter Management: Sanders: Cath Placed During This Visit: yes Urinary Catheter Date of Insertion: 02/12/22 Urinary Catheter Time of Insertion: 15:50 Data : 02/13/22 05:36 02/13/22 05:36 Micro: Microbiology 02/11/22 02:40 Gram Stain - Final Sputum - Expectorated Sputum Sputum Culture - Preliminary A&P Assessment and plan (1) Respiratory failure with hypoxia: On admission patient was found to have hypoxia with use of accessory muscle. Most likely secondary to congestive heart failure along with mild COPD exacerbation. Less likely from pneumonia. Status: Acute (2) Pulmonary edema: Echocardiogram done in previous admission showed an EF of 55% with regional wall motion abnormality, mild to moderate MR, mild TR, PASP of 61 mmHg. Patient was recently at an outside hospital where she was treated for lung abscess. Also has recent history of COVID-19. Check proBNP, procalcitonin, D-dimer. D-dimer slightly elevated. Cannot do CTA given CKD versus ERICA. Will do VQ scan, lower limb Dopplers. For now hold off on starting full dose anticoagulation. Sanders catheterization. Aggressive IV diuresis. Strict input output charting, daily weights. Fluid restriction less than 1200 cc. Start on metolazone 5 mg oral daily. Continue Lasix IV 40 mg every 12 hours. For possible COPD exacerbation will wean off Solu-Medrol to 40 mg daily. Pulmicort twice daily, DuoNebs 4 times daily. Oxygen supplementation keeping saturation over 90%. Status: Acute (3) COPD exacerbation: Treatment as above. Azithromycin 5 mg oral daily. Check Streptococcus group A routine. Check urine Legionella, bacterial antigen. Sputum culture. Status: Acute (4) CKD (chronic kidney disease): Creatinine since earlier in January more than 2. On review of chart in 2020 was normal to 1.1. Concerns of neurogenic bladder versus possible renal embolization from the time of septicemia from lung abscess versus diabetic nephropathy versus ATN. Sanders catheterization. Renal ultrasound. Check urine lites, urine eosinophils, urine creatinine. Nephrotic syndrome ruled out on previous admission from 24-hour protein evaluation. Status: Acute (5) Type 1 diabetes mellitus: Uncontrolled blood sugars. Hemoglobin A1c was just over 10. Increase Lantus to 20 units twice daily add a prandial Humalog with sliding scale in addition. Will need tighter control Status: Acute (6) Diabetic neuropathy associated with type 1 diabetes mellitus: Status: Chronic Qualifiers: Diabetes mellitus complication detail: diabetic polyneuropathy Qualified Code(s): E10.42 - Type 1 diabetes mellitus with diabetic polyneuropathy (7) Diabetic gastroparesis: As above Reglan 4 times daily. Status: Acute (8) Neurogenic bladder: Sanders catheterization. Continue with Flomax. Status: Acute (9) Abdominal pain: Patient has been seen here recently for abdominal pain placed on Pepcid, Pepto-Bismol, Maalox as needed. Will prescribe Mylanta as needed give a dose now. After reviewing past medical history it is likely patient has gastroparesis. Restarted Reglan. Status: Acute Plan Analgesia: Tylenol as needed, morphine 1 mg every 4 hours as needed. Hold off on oral morphine Glycemic control: Insulin sliding scale, glargine 20 units twice daily, lispro 5 units 3 meals. Check A1c. Nutrition: Carb consistent diet CODE STATUS: Full code PUD prophylaxis: Protonix DVT prophylaxis: Lovenox 30 mg subcu daily. Discharge planning: Home once medically stable Continue with care at [facility]. This documentation was created by [employer] social work job titles software. Every effort was made to ensure accuracy of social work job titles. Any obvious errors or omissions should be clarified with the author of the document. Attestations Medical Necessity Statement*: Requires further hospitalization for management of hypoxia secondary congestive heart failure, CKD, type 1 diabetes mellitus Time Spent in Patient Care: Greater than 35 minutes Coding Level of Care Code Acute Child Support Investigator for g Fwd Diagnoses Respiratory failure with hypoxia J96.91 Pulmonary edema J81.1 COPD exacerbation J44.1 CKD (chronic kidney disease) N18.9 Type 1 diabetes mellitus E10.9 Diabetic neuropathy associated with type 1 diabetes mellitus E10.42 Diabetes mellitus complication detail: diabetic polyneuropathy Diabetic gastroparesis E11.43; K31.84 Neurogenic bladder N31.9 Abdominal pain R10.9
--- NOTE | 2022-02-12 18:01 | USCV_ITS ---
Donita Aguilar Age: 36 Gender: F : 1985 Exam Date: 02/12/2022 22:21 Ordering Phys: Ruy Edgar MD Technologist: VIANNEY [place] [facility] [place]: BP: 135 / 85 HR: 102 Rhythm: Sinus Technical Quality: Adequate MEASUREMENTS (Male / Female) Normal Values 2D ECHO LV Diastolic Diameter PLAX 4.3 cm 4.2 - 5.9 / 3.9 - 5.3 cm LV Systolic Diameter PLAX 3.2 cm IVS Diastolic Thickness 1.3 cm 0.6 - 1.0 / 0.6 - 0.9 cm IVS Systolic Thickness 1.6 cm LVPW Diastolic Thickness 1.4 cm 0.6 - 1.0 / 0.6 - 0.9 cm LVPW Systolic Thickness 1.5 cm LV Ejection Fraction 2D Teich 52.5 % LV Ejection Fraction MOD 2C 44.8 % LV Ejection Fraction 2C AL 46.0 % LA Width 4.5 cm LA Height 4.8 cm RA Width 3.0 cm RA Height 3.6 cm IVC Diameter 1.3 cm DOPPLER TR Peak Velocity 374.0 cm/s TR Peak Gradient 56.0 mmHg Right Atrial Pressure 10.0 mmHg Pulmonary Artery Systolic Pressu 66.0 mmHg FINDINGS Left Ventricle Right Ventricle Right Atrium Left Atrium Mitral Valve Aortic Valve Tricuspid Valve Pulmonic Valve Pericardium Aorta IVC CONCLUSIONS This is a limited echocardiogram. LV systolic function is mildly reduced with EF of 40 to 45%. Moderate hypokinesis of mid to apical anterior and anterolateral espinosa. Right ventricle is normal in size and function. No gross valvular structural abnormalities seen. Doppler exam not done for all valves. Mild tricuspid and mitral regurgitation Trace pericardial effusion Compared to prior echocardiogram from 01/26/2022, LV systolic function has decreased slightly. Riccardo Burch MD (Electronically Signed) Final Date: 13 February 2022 11:55 S
--- NOTE | 2022-02-12 18:05 | US_ITS ---
WS: [id number] RENAL ULTRASOUND HISTORY: ckd COMPARISON: 02/04/2022 and 08/17/2020 TECHNIQUE: 2-D and color Doppler imaging of the kidney submitted. Right kidney: 10.8 cm x 5.8 cm x 5.5 cm. Normal size kidney. Moderate hydronephrosis with no cortical thinning. Hydronephrosis is new since . Mild progression since the prior CT of 02/04/2022. Left kidney: 9.1 cm x 6.4 cm x 5.5 cm. Normal echogenicity with no hydronephrosis or mass. Aorta: Normal. Urinary Bladder: Nondistended urinary bladder. Sanders catheter in place. Small RIGHT pleural effusion. US/US renal BI* [id number] IMPRESSION: 1. Moderate RIGHT hydronephrosis. New since 08/17/2020 progression since 022. Etiology is not evident. 2. Negative LEFT kidney. 3. Small RIGHT pleural effusion.
[2022-02-12] MEDS: dextrose 50% syringe 50 mL IVP (18:40)
[2022-02-12] MEDS: insulin regular-human 10 UNIT in SYRINGE 1 EACH IVP (18:43)
[2022-02-12 18:45] LABS: Glucose Point of Care 353 mg/dL (70-110)
[2022-02-12] MEDS: calcium gluconate 0.9% NaCL 1 GM/50 ML PREMIX IV (18:47)
[2022-02-12] MEDS: morphine 10 mg/0.5 mL oral liq UD 5 MG PO (20:38)
[2022-02-12 20:47] LABS: Folate Level 10.1 ng/mL (4.8-37.3)
[2022-02-12 20:49] LABS: Amphetamines Screen Urine Negative (Negative); Barbiturates Screen Urine Negative (Negative); Benzodiazepines Screen Urine Negative (Negative); Cocaine Screen Urine Negative (Negative); Opiate Screen Urine Positive (Negative); PCP Screen Urine Negative (Negative); THC Screen Urine Negative (Negative)
[2022-02-12 20:54] LABS: Add Urine Microscopic? YES; Bilirubin Urine Neg (Negative); Blood Urine 3+ (Negative); Glucose Urine UA Trace (Normal); Ketones Urine Negative (Negative); Leukocyte Esterase Urine Trace (Negative); Nitrate Urine Negative (Negative); Protein Urine Trace (Negative); Specific Gravity, Urine 1.005 (1.005-1.030); Urine Appearance Clear (CLEAR); Urine Color Colorless (Yellow); Urobilinogen Urine Norm (Negative); pH Urine 5 (5-7)
[2022-02-12 20:56] LABS: Squamous Epithelial Cell Urine 0-4 /hpf (0-5)
[2022-02-12 20:57] LABS: Add Urine Culture? No; Bacteria Urine TRACE /hpf
[2022-02-12 21:03] LABS: Vitamin B12 324 pg/mL (232-1245)
[2022-02-12 21:11] LABS: Potassium, Radom Urine 13 mmol/L; Urine Creatinine 18 mg/dL (28-217); Urine Random Chloride 107 mmol/L; Urine Random Sodium 115 mmol/L
[2022-02-12 21:18] LABS: Glucose Point of Care 263 mg/dL (70-110)
[2022-02-12] MEDS: diphenhydrAMINE 25 mg Capsule PO (21:31)
[2022-02-12] MEDS: tamsulosin 0.4 mg Capsule PO (21:31)
[2022-02-13] VITALS (16 sets, daily range): BP systolic 112–128; BP diastolic 72–79; PULSE 18–102; RESP 12–18; TEMP 36.4–36.9; O2SAT 94–100
--- NOTE | 2022-02-13 00:18 | PC.NURSE ---
Spoke wtih regarding patients complaint of pain in her back following her renal ultra sound. The patient received IV torodol with little relieve and was requesting something stronger. ordered PRN Morphine IV 1mg q 4 as needed for severe pain.
[2022-02-13] MEDS: morphine 4 mg/mL SDV 1 mL 1 MG IVP (00:37)
[2022-02-13 00:42] LABS: NT Pro B Type Natriuretic Pept > 35000 pg/mL (0-125)
[2022-02-13 01:57] LABS: Eosinophil Urine No Eosinophils Seen
[2022-02-13 06:14] LABS: Basophils % 0.2 %; Eosinophils % 0.1 %; Hematocrit 30.5 % (37.0-47.0); Hemoglobin 9.1 g/dL (11.5-15.3); Lymphocytes # 3.5 10^3/uL (0.8-4.8); Lymphocytes % 30.5 %; Mean Corpuscular HGB Conc 29.8 g/dL (30.0-36.0); Mean Corpuscular Hemoglobin 26.6 pg (28.0-34.0); Mean Corpuscular Volume 89.2 fl (81-99); Mean Platelet Volume 10.7 fL (7.4-10.4); Monocytes # 0.8 10^3/uL (0.2-0.9); Monocytes % 7.2 %; Neutrophils # 7.11 10^3/uL (1.8-7.7); Neutrophils % 61.7 %; Nucleated Red Blood Cells % 0 %; Platelet Count 229 10^3/cmm (130-400); Red Blood Count 3.42 10^6/uL (4.1-5.3); Red Cell Distribution Width 17.9 % (12.1-15.1); White Blood Count 11.5 10^3/uL (4.0-10.0)
[2022-02-13 06:30] LABS: Glucose Point of Care 72 mg/dL (70-110)
[2022-02-13 06:41] LABS: Alanine Aminotransferase 14 U/L (0-33); Albumin Level 2.6 g/dL (3.5-5.2); Alkaline Phosphatase 121 U/L (35-105); Anion Gap 15.9 (5-19); Aspartate Amino Transferase 13 U/L (0-32); Blood Urea Nitrogen 71 mg/dL (6-20); Calcium 8.3 mg/dL (8.5-10.5); Carbon Dioxide 27 mmol/L (22-29); Chloride 104 mmol/L (98-107); Globulin 3.7 g/dL (1.3-4.6); Glomerular Filtration Rate 19.2 mL/min (90-130); Glucose 76 mg/dL (65-115); Osmolality Calculated 314 mOsm/kg (285-295); Potassium 4.9 mmol/L (3.5-5.1); Sodium 142 mmol/L (136-145); Total Bilirubin 0.2 mg/dL (0.15-1.2); Total Protein 6.3 g/dL (6.6-8.7)
[2022-02-13] MEDS: budesonide 0.5 mg/2 mL Neb INHALATION ×2 (08:13→20:08)
[2022-02-13] MEDS: ipratropium-albuterol 3 mL Neb INHALATION ×4 (08:13→20:08)
[2022-02-13] MEDS: azithromycin 250 mg Tablet 500 MG PO (09:27)
[2022-02-13] MEDS: metOLazone 5 MG Tablet PO (09:27)
[2022-02-13] MEDS: morphine 10 mg/0.5 mL oral liq UD 5 MG PO (09:27)
[2022-02-13] MEDS: insulin glargine 100 units/1 mL 20 UNIT SUBCUT ×2 (09:33→17:25)
[2022-02-13 11:15] LABS: Glucose Point of Care 166 mg/dL (70-110)
[2022-02-13] MEDS: insulin lispro 100 unit/1 mL SUBCUT ×5 (13:18→21:45)
[2022-02-13] MEDS: pantoprazole DR 40 mg Tablet PO (13:21)
[2022-02-13 17:04] LABS: Glucose Point of Care 151 mg/dL (70-110)
--- NOTE | 2022-02-13 17:44 | PM.PN ---
Subjective Subjective: No events overnight. Patient denies any nausea vomiting, headache. Sanders catheter in place. Down to 2 L. States feeling better. Had a long discussion regarding multiple medical problems which we have found during this hospitalization. Discussed about the plan going forward. Vitals/I&O/Wt Last Vital Signs Temp 98.3 F 02/13/22 15:56 Pulse 102 H 02/13/22 16:04 Resp 18 02/13/22 16:04 BP 115/78 02/13/22 15:56 Pulse Ox 94 02/13/22 16:04 O2 Del Method 02/13/22 16:04 O2 Flow Rate 2 02/13/22 16:04 02/13/22 02/13/22 02/13/22 06:59 14:59 22:59 Intake Total 120 / 1450.1 720 / 720 Output Total 100 / 2050 Balance 20 / -599.9 720 / 720 Physical Exam Narrative: AOx3, no acute distress, pallor present chronically ill-appearing. Heart regular normal S1-S2 mildly tachycardic Lungs diffuse crackles bilateral bases with rhonchi heard in the left upper posterior lung abdomen soft nontender nondistended positive bowel sounds Extremities +2 pitting edema to knees. Urinary Catheter Management: Sanders: Cath Placed During This Visit: yes Reason for Continuing Indwelling Catheter: Acute Urinary Retention or Obstruction Urinary Catheter Date of Insertion: 02/12/22 Urinary Catheter Time of Insertion: 15:50 Data : 02/13/22 05:36 02/13/22 05:36 Micro: Microbiology 02/12/22 16:15 Group A Streptococcus Rapid Screen - Preliminary Throat 02/11/22 02:40 Gram Stain - Final Sputum - Expectorated Sputum Sputum Culture - Final A&P Assessment and plan (1) Respiratory failure with hypoxia: On admission patient was found to have hypoxia with use of accessory muscle. Most likely secondary to congestive heart failure along with mild COPD exacerbation. Less likely from pneumonia. Status: Acute (2) Pulmonary edema: Echocardiogram done in previous admission showed an EF of 55% with regional wall motion abnormality, mild to moderate MR, mild TR, PASP of 61 mmHg. Patient was recently at an outside hospital where she was treated for lung abscess. Also has recent history of COVID-19. Check proBNP, procalcitonin, D-dimer. D-dimer slightly elevated. Cannot do CTA given CKD versus ERICA. Will do VQ scan, lower limb Dopplers. For now hold off on starting full dose anticoagulation. Sanders catheterization. Aggressive IV diuresis. Strict input output charting, daily weights. Fluid restriction less than 1200 cc. Start on metolazone 5 mg oral daily. Continue Lasix IV 40 mg every 12 hours. For possible COPD exacerbation will wean off Solu-Medrol to 40 mg daily. Pulmicort twice daily, DuoNebs 4 times daily. Oxygen supplementation keeping saturation over 90%. Status: Acute (3) CAD (coronary artery disease): Echocardiogram as above. Repeat limited echocardiogram shows an EF of 45%, regional wall motion abnormality, normal RV function. Given new regional wall motion normality in a 36-year-old with a history of type 1 diabetes and early CAD in mother there is a high chance of CAD versus cardiomyopathy secondary to history of drug abuse. Will plan for cardiac stress test in a.m. Admit n.p.o. after midnight. Patient not a candidate for angiogram currently because of CKD. Status: Acute (4) CKD (chronic kidney disease): Creatinine since earlier in January more than 2. On review of chart in 2020 was normal to 1.1. Concerns of neurogenic bladder versus possible renal embolization from the time of septicemia from lung abscess versus diabetic nephropathy versus ATN. Sanders catheterization. Renal ultrasound. Check urine lites, urine eosinophils, urine creatinine. Nephrotic syndrome ruled out on previous admission from 24-hour protein evaluation. Status: Acute (5) Neurogenic bladder: Sanders catheterization. Continue with Flomax. Status: Acute (6) Type 1 diabetes mellitus: Uncontrolled blood sugars. Hemoglobin A1c was just over 10. Increase Lantus to 20 units twice daily add a prandial Humalog with sliding scale in addition. Will need tighter control Status: Acute (7) COPD exacerbation: Treatment as above. Azithromycin 5 mg oral daily. Check Streptococcus group A routine. Check urine Legionella, bacterial antigen. Sputum culture. Status: Acute (8) Diabetic neuropathy associated with type 1 diabetes mellitus: Status: Chronic Qualifiers: Diabetes mellitus complication detail: diabetic polyneuropathy Qualified Code(s): E10.42 - Type 1 diabetes mellitus with diabetic polyneuropathy (9) Diabetic gastroparesis: As above Reglan 4 times daily. Status: Acute (10) Abdominal pain: Patient has been seen here recently for abdominal pain placed on Pepcid, Pepto-Bismol, Maalox as needed. Will prescribe Mylanta as needed give a dose now. After reviewing past medical history it is likely patient has gastroparesis. Restarted Reglan. Status: Acute (11) Pulmonary hypertension: Status: Acute Plan Analgesia: Tylenol as needed, morphine 1 mg every 4 hours as needed. Hold off on oral morphine Glycemic control: Insulin sliding scale, glargine 20 units twice daily, lispro 5 units 3 meals. Check A1c. Nutrition: Carb consistent diet CODE STATUS: Full code PUD prophylaxis: Protonix DVT prophylaxis: Lovenox 30 mg subcu daily. Discharge planning: Home once medically stable Continue with care at [facility]. This documentation was created by [employer] software computer specialist software. Every effort was made to ensure accuracy of software computer specialist. Any obvious errors or omissions should be clarified with the author of the document. Attestations Medical Necessity Statement*: Requires further hospitalization for further evaluation of CAD, pulmonary hypertension, congestive heart failure Time Spent in Patient Care: Greater than 35 minutes Coding Level of Care Code Acute [employer] Crewman for Chg Fwd Diagnoses Respiratory failure with hypoxia J96.91 Pulmonary edema J81.1 CAD (coronary artery disease) I25.10 CKD (chronic kidney disease) N18.9 Neurogenic bladder N31.9 Type 1 diabetes mellitus E10.9 COPD exacerbation J44.1 Diabetic neuropathy associated with type 1 diabetes mellitus E10.42 Diabetes mellitus complication detail: diabetic polyneuropathy Diabetic gastroparesis E11.43; K31.84 Abdominal pain R10.9 Pulmonary hypertension I27.20
--- NOTE | 2022-02-13 18:03 | NM_ITS ---
WS: [id number] NUCLEAR MEDICINE LUNG VENTILATION AND PERFUSION CLINICAL INFORMATION: high chance pe TECHNIQUE: Ventilation/perfusion lung scan with 30.6 mCi technetium 99m DTPA. 5.0 mCi MAA was COMPARISON: Radiograph February 10, 2022 FINDINGS: Small LEFT pleural effusion on the recent radiograph. LEFT basilar atelectasis/infiltrates. Slight pa tchy infiltrates RIGHT lower lobe medially. Volume loss LEFT lung. Relatively symmetric perfusion throughout both lungs with patchy ventilatory radiotracer uptake with central deposition due to emphysema. A few matched defects. No large mismatched defects to indicate p ulmonary embolus. No lobar defects. NM/NM pul vent and perfus* [id number] IMPRESSION: 1. Low probability for pulmonary embolus.
--- NOTE | 2022-02-13 19:37 | PC.NURSE ---
Spoke with Dr Carrera regarding patient complaints of pain in her back 03/03. Patient has morphine ordered but morphine is out of stock. orderd PRN Dilaudid for pain.
[2022-02-13] MEDS: HYDROmorphone 1 mg/mL INJ 1 mL 0.5 MG IVP (20:13)
[2022-02-13 21:22] LABS: Glucose Point of Care 238 mg/dL (70-110)
[2022-02-13] MEDS: diphenhydrAMINE 25 mg Capsule PO (21:44)
[2022-02-13] MEDS: tamsulosin 0.4 mg Capsule PO (21:44)
[2022-02-14] VITALS (16 sets, daily range): BP systolic 124–168; BP diastolic 13–99; PULSE 68–114; RESP 12–22; TEMP 36.4–37.1; O2SAT 89–100
[2022-02-14] MEDS: HYDROmorphone 1 mg/mL INJ 1 mL 0.5 MG IVP (01:20)
[2022-02-14 04:16] LABS: Hematocrit 30.8 % (37.0-47.0); Hemoglobin 9.1 g/dL (11.5-15.3); Lymphocytes # 2.1 10^3/uL (0.8-4.8); Lymphocytes % 18.6 %; Mean Corpuscular HGB Conc 29.5 g/dL (30.0-36.0); Mean Corpuscular Hemoglobin 26.8 pg (28.0-34.0); Mean Corpuscular Volume 90.9 fl (81-99); Mean Platelet Volume 11.1 fL (7.4-10.4); Monocytes # 0.9 10^3/uL (0.2-0.9); Monocytes % 8.3 %; Neutrophils # 8.06 10^3/uL (1.8-7.7); Neutrophils % 72.7 %; Nucleated Red Blood Cells % 0 %; Platelet Count 241 10^3/cmm (130-400); Red Blood Count 3.39 10^6/uL (4.1-5.3); Red Cell Distribution Width 17.5 % (12.1-15.1); White Blood Count 11.1 10^3/uL (4.0-10.0)
[2022-02-14 04:49] LABS: Alanine Aminotransferase 14 U/L (0-33); Albumin Level 2.6 g/dL (3.5-5.2); Alkaline Phosphatase 114 U/L (35-105); Aspartate Amino Transferase 11 U/L (0-32); Blood Urea Nitrogen 73 mg/dL (6-20); Calcium 8.2 mg/dL (8.5-10.5); Carbon Dioxide 24 mmol/L (22-29); Chloride 104 mmol/L (98-107); Globulin 3.4 g/dL (1.3-4.6); Glomerular Filtration Rate 20.1 mL/min (90-130); Glucose 229 mg/dL (65-115); Osmolality Calculated 317 mOsm/kg (285-295); Sodium 139 mmol/L (136-145); Total Bilirubin 0.2 mg/dL (0.15-1.2)
[2022-02-14 06:46] LABS: Glucose Point of Care 237 mg/dL (70-110)
[2022-02-14] MEDS: ipratropium-albuterol 3 mL Neb INHALATION ×4 (07:25→20:16)
[2022-02-14] MEDS: budesonide 0.5 mg/2 mL Neb INHALATION ×2 (07:25→20:16)
[2022-02-14] MEDS: calcium gluconate 0.9% NaCL 1 GM/50 ML PREMIX IV ×2 (07:45→21:34)
[2022-02-14] MEDS: HYDROmorphone 1 mg/mL INJ 1 mL 0.2 MG IVP (07:59)
[2022-02-14] MEDS: insulin regular-human 10 UNIT in SYRINGE 1 EACH 60 UNIT IVP ×2 (08:54→14:31)
[2022-02-14] MEDS: dextrose 50% syringe 50 mL IVP ×4 (08:54→21:34)
[2022-02-14] MEDS: sodium polystyrene sulfonate 15 gm/60 mL Btl PO ×2 (08:59→21:33)
[2022-02-14] MEDS: insulin lispro 100 unit/1 mL SUBCUT ×2 (08:59)
[2022-02-14] MEDS: azithromycin 250 mg Tablet 500 MG PO (09:00)
[2022-02-14] MEDS: FUROsemide 10 mg/mL SDV 4mL 40 MG IVP ×2 (09:00→21:45)
[2022-02-14] MEDS: enoxaparin 40 mg/0.4 mL Syringe SUBCUT (09:00)
[2022-02-14] MEDS: insulin glargine 100 units/1 mL 20 UNIT SUBCUT (09:01)
[2022-02-14 12:10] LABS: Glucose Point of Care 40 mg/dL (70-110)
[2022-02-14 12:10] LABS: Glucose Point of Care 59 mg/dL (70-110)
[2022-02-14 12:10] LABS: Glucose Point of Care 180 mg/dL (70-110)
[2022-02-14] MEDS: pantoprazole DR 40 mg Tablet PO (14:32)
[2022-02-14 15:04] LABS: Glucose Point of Care 191 mg/dL (70-110)
--- NOTE | 2022-02-14 15:43 | PM.PN ---
Subjective Subjective: No acute events overnight. Patient denies any nausea, vomiting, headache. Turned down to room air. Patient saturating well. Good urine output which is continues to improve. Today morning patient was kept n.p.o. for Lexiscan stress test during which time she had hypoglycemia so she was given diet. Plan for Lexiscan in a.m. tomorrow. N.p.o. after midnight. Vitals/I&O/Wt Last Vital Signs Temp 98.3 F 02/14/22 11:19 Pulse 90 02/14/22 11:19 Resp 16 02/14/22 11:19 BP 131/85 02/14/22 11:19 Pulse Ox 98 02/14/22 11:19 O2 Del Method 02/14/22 11:19 O2 Flow Rate 1 02/14/22 07:27 02/14/22 02/14/22 02/14/22 06:59 14:59 22:59 Intake Total 630.2 / 630.2 Output Total 850 / 1030 Balance -850 / 50 630.2 / 630.2 Physical Exam Narrative: AOx3, no acute distress, pallor present chronically ill-appearing. Heart regular normal S1-S2, soft pansystolic murmur at apex Lungs diffuse crackles bilateral bases with rhonchi heard in the left upper posterior lung abdomen soft nontender nondistended positive bowel sounds Extremities +2 pitting edema to knees. Urinary Catheter Management: Sanders: Cath Placed During This Visit: yes Reason for Continuing Indwelling Catheter: Acute Urinary Retention or Obstruction Urinary Catheter Date of Insertion: 02/12/22 Urinary Catheter Time of Insertion: 15:50 Data : 02/14/22 03:36 02/14/22 03:36 Micro: Microbiology 02/12/22 16:15 Group A Streptococcus Rapid Screen - Final Throat 02/11/22 02:40 Gram Stain - Final Sputum - Expectorated Sputum Sputum Culture - Final A&P Assessment and plan (1) Respiratory failure with hypoxia: On admission patient was found to have hypoxia with use of accessory muscle. Most likely secondary to congestive heart failure along with mild COPD exacerbation. Less likely from pneumonia. Status: Acute (2) Pulmonary edema: Echocardiogram done in previous admission showed an EF of 55% with regional wall motion abnormality, mild to moderate MR, mild TR, PASP of 61 mmHg. Patient was recently at an outside hospital where she was treated for lung abscess. Also has recent history of COVID-19. Check proBNP, procalcitonin, D-dimer. D-dimer slightly elevated. Cannot do CTA given CKD versus ERICA. Will do VQ scan, lower limb Dopplers. For now hold off on starting full dose anticoagulation. Sanders catheterization. Aggressive IV diuresis. Strict input output charting, daily weights. Fluid restriction less than 1200 cc. Start on metolazone 5 mg oral daily. Continue Lasix IV 40 mg every 12 hours. For possible COPD exacerbation will wean off Solu-Medrol to 40 mg daily. Pulmicort twice daily, DuoNebs 4 times daily. Oxygen supplementation keeping saturation over 90%. Status: Acute (3) CAD (coronary artery disease): Echocardiogram as above. Repeat limited echocardiogram shows an EF of 45%, regional wall motion abnormality, normal RV function. Given new regional wall motion normality in a 36-year-old with a history of type 1 diabetes and early CAD in mother there is a high chance of CAD versus cardiomyopathy secondary to history of drug abuse. Will plan for cardiac stress test in a.m. Admit n.p.o. after midnight. Patient not a candidate for angiogram currently because of CKD. Status: Acute (4) CKD (chronic kidney disease): Creatinine since earlier in January more than 2. On review of chart in 2020 was normal to 1.1. Concerns of neurogenic bladder versus possible renal embolization from the time of septicemia from lung abscess versus diabetic nephropathy versus ATN. Sanders catheterization. Renal ultrasound. Check urine lites, urine eosinophils, urine creatinine. Nephrotic syndrome ruled out on previous admission from 24-hour protein evaluation. Status: Acute (5) Neurogenic bladder: Sanders catheterization. Continue with Flomax. Status: Acute (6) Type 1 diabetes mellitus: Uncontrolled blood sugars. Hemoglobin A1c was just over 10. Increase Lantus to 20 units twice daily add a prandial Humalog with sliding scale in addition. Will need tighter control Status: Acute (7) COPD exacerbation: Treatment as above. Azithromycin 5 mg oral daily. Check Streptococcus group A routine. Check urine Legionella, bacterial antigen. Sputum culture. Status: Acute (8) Diabetic neuropathy associated with type 1 diabetes mellitus: Status: Chronic Qualifiers: Diabetes mellitus complication detail: diabetic polyneuropathy Qualified Code(s): E10.42 - Type 1 diabetes mellitus with diabetic polyneuropathy (9) Diabetic gastroparesis: As above Reglan 4 times daily. Status: Acute (10) Abdominal pain: Patient has been seen here recently for abdominal pain placed on Pepcid, Pepto-Bismol, Maalox as needed. Will prescribe Mylanta as needed give a dose now. After reviewing past medical history it is likely patient has gastroparesis. Restarted Reglan. Status: Acute (11) Pulmonary hypertension: Status: Acute Plan Analgesia: Tylenol as needed, morphine 1 mg every 4 hours as needed. Hold off on oral morphine Glycemic control: Insulin sliding scale, glargine 20 units twice daily, lispro 5 units 3 meals. Check A1c. Nutrition: Carb consistent diet CODE STATUS: Full code PUD prophylaxis: Protonix DVT prophylaxis: Lovenox 30 mg subcu daily. Discharge planning: Home once medically stable Continue with care at [facility]. This documentation was created by [employer] associate spa director software. Every effort was made to ensure accuracy of associate spa director. Any obvious errors or omissions should be clarified with the author of the document. Plan for the day: N.p.o. after midnight. Lexiscan in AM. Abdomen every 8 hourly for 1 day. Add Nepro with each meal. Switch IV Lasix to oral Lasix 40 mg daily. Stop hydrocortisone and switch to prednisone 40 mg oral daily. Kayexalate 15 mg daily for now. D50 insulin 10 units for hyperkalemia along with 1 mg of IV calcium gluconate. Repeat BMP in evening. Plan for repeat CT abdomen pelvis in a.m. for further evaluation of hydronephrosis. Strict input output charting. Care discussed in detail with Dr. Rubio. Agrees with the plan. Attestations Medical Necessity Statement*: Requires further hospitalization for management of regional wall motion abnormality, ERICA versus CKD, hyperkalemia Time Spent in Patient Care: Greater than 35 minutes Coding Level of Care Code Acute Parenting Skills Instructor for Reji Fwd Diagnoses Respiratory failure with hypoxia J96.91 Pulmonary edema J81.1 CAD (coronary artery disease) I25.10 CKD (chronic kidney disease) N18.9 Neurogenic bladder N31.9 Type 1 diabetes mellitus E10.9 COPD exacerbation J44.1 Diabetic neuropathy associated with type 1 diabetes mellitus E10.42 Diabetes mellitus complication detail: diabetic polyneuropathy Diabetic gastroparesis E11.43; K31.84 Abdominal pain R10.9 Pulmonary hypertension I27.20
[2022-02-14 19:23] LABS: Alanine Aminotransferase 15 U/L (0-33); Albumin Level 3.2 g/dL (3.5-5.2); Alkaline Phosphatase 116 U/L (35-105); Aspartate Amino Transferase 10 U/L (0-32); Blood Urea Nitrogen 73 mg/dL (6-20); Calcium 8.6 mg/dL (8.5-10.5); Carbon Dioxide 22 mmol/L (22-29); Chloride 100 mmol/L (98-107); Globulin 3.4 g/dL (1.3-4.6); Glucose 345 mg/dL (65-115); Osmolality Calculated 321 mOsm/kg (285-295); Sodium 138 mmol/L (136-145); Total Bilirubin 0.2 mg/dL (0.15-1.2); Total Protein 6.6 g/dL (6.6-8.7)
[2022-02-14] MEDS: diphenhydrAMINE 25 mg Capsule PO (20:07)
[2022-02-14] MEDS: TRAMadol 50 mg Tablet PO (20:07)
[2022-02-14] MEDS: tamsulosin 0.4 mg Capsule PO (20:07)
[2022-02-14] MEDS: alum-mag-hydroxide-sime 30 mL UDC PO (20:40)
--- NOTE | 2022-02-14 20:53 | ECG_ITS ---
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 Measurements Intervals [place] Rate: 108 P: 69 NM: 132 QRS: 101 QRSD: 94 T: 222 QT: 322 QTc: 433 Interpretive Statements SINUS TACHYCARDIA RIGHT AXIS DEVIATION [QRS AXIS > 100] ST DEVIATION AND MODERATE T-WAVE ABNORMALITY, CONSIDER LATERAL ISCHEMIA [-0.1+ mV T-WAVE IN I/aVL/V5/V6] ST DEVIATION AND MODERATE T-WAVE ABNORMALITY, CONSIDER INFERIOR ISCHEMIA [-0.1+ mV T-WAVE IN II/aVF] Compared to ECG 02/10/2022 10:16:57 Sinus rhythm no longer present T-wave abnormality still present Possible ischemia still present Electronically Signed On 02-16-2022 6:25:44 CDT by Maame Montero M.D. [id number]
[2022-02-14] MEDS: insulin regular-human 10 UNIT in SYRINGE 1 EACH IVP (21:34)
[2022-02-14 21:36] LABS: Glucose Point of Care 451 mg/dL (70-110)
[2022-02-14 22:40] LABS: Troponin(5th) Baseline 354 ng/L (0-10)
[2022-02-14 22:46] LABS: Glucose Point of Care 430 mg/dL (70-110)
--- NOTE | 2022-02-14 23:00 | ECG_ITS ---
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 Measurements Intervals [place] Rate: 105 P: 64 MA: 162 QRS: 72 QRSD: 96 T: 127 QT: 328 QTc: 434 Interpretive Statements SINUS TACHYCARDIA ST DEVIATION AND MODERATE T-WAVE ABNORMALITY, CONSIDER LATERAL ISCHEMIA [-0.1+ mV T-WAVE IN I/aVL/V5/V6] Compared to ECG 02/14/2022 20:53:48 Right-axis deviation no longer present T-wave abnormality still present Possible ischemia still present Electronically Signed On 02-16-2022 6:34:04 CDT by Maame Montero M.D. [id number]
[2022-02-15] VITALS (18 sets, daily range): BP systolic 130–161; BP diastolic 80–96; PULSE 75–95; RESP 14–20; TEMP 36.6–37.3; O2SAT 95–100
--- NOTE | 2022-02-15 00:08 | PC.NURSE ---
Patient c/o chest pain Dr Carrera informed. Troponins, Ekgs ordered. Patient had elevated troponing. Dr Carrera placed spoke with Dr Montero. He Placed as orders.
[2022-02-15] MEDS: heparin drip 25,000 UNIT/500 ML PREMIX 17 UNIT IV (00:28)
[2022-02-15] MEDS: aspirin 81 mg EC Tablet PO ×2 (00:28→09:55)
[2022-02-15] MEDS: HYDROmorphone 1 mg/mL INJ 1 mL 0.4 MG IVP (00:28)
[2022-02-15] MEDS: atorvastatin 40 mg Tablet PO (00:28)
[2022-02-15] MEDS: carvedilol 3.125 mg Tablet PO ×3 (00:28→17:48)
[2022-02-15 00:51] LABS: Troponin 5 2HR 351.1 ng/L (0-10); Troponin 5 2HR Delta -2.9 ABS# (0-10)
[2022-02-15 00:53] LABS: Glucose Point of Care 309 mg/dL (70-110)
[2022-02-15] MEDS: heparin 5,000 unit/mL INJ 1 mL IV ×2 (02:02→13:04)
[2022-02-15 02:55] LABS: Glucose Point of Care 298 mg/dL (70-110)
--- NOTE | 2022-02-15 02:55 | ECG_ITS ---
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 Measurements Intervals [place] Rate: 88 P: 2 IA: 153 QRS: 54 QRSD: 98 T: 126 QT: 349 QTc: 424 Interpretive Statements SINUS RHYTHM NONSPECIFIC ST & T-WAVE ABNORMALITY Compared to ECG 02/14/2022 23:00:49 Sinus tachycardia no longer present Possible ischemia no longer present T-wave abnormality still present Electronically Signed On 02-16-2022 6:31:43 CDT by Maame Montero M.D. [id number]
[2022-02-15 03:47] LABS: Basophils % 0.1 %; Hematocrit 32.3 % (37.0-47.0); Lymphocytes # 1.9 10^3/uL (0.8-4.8); Lymphocytes % 21.4 %; Mean Corpuscular HGB Conc 27.9 g/dL (30.0-36.0); Mean Corpuscular Hemoglobin 26.9 pg (28.0-34.0); Mean Corpuscular Volume 96.7 fl (81-99); Mean Platelet Volume 10.5 fL (7.4-10.4); Monocytes # 0.7 10^3/uL (0.2-0.9); Monocytes % 7.6 %; Neutrophils % 70.6 %; Nucleated Red Blood Cells % 0 %; Platelet Count 239 10^3/cmm (130-400); Red Blood Count 3.34 10^6/uL (4.1-5.3); Red Cell Distribution Width 17.1 % (12.1-15.1); White Blood Count 8.9 10^3/uL (4.0-10.0)
[2022-02-15 03:53] LABS: INR 1.26 (0.8-1.2)
[2022-02-15 04:22] LABS: Alanine Aminotransferase 14 U/L (0-33); Albumin Level 3.5 g/dL (3.5-5.2); Alkaline Phosphatase 99 U/L (35-105); Anion Gap 18.6 (5-19); Aspartate Amino Transferase 9 U/L (0-32); Blood Urea Nitrogen 68 mg/dL (6-20); Calcium 8.7 mg/dL (8.5-10.5); Carbon Dioxide 29 mmol/L (22-29); Chloride 97 mmol/L (98-107); Creatine Phosphokinase 38 U/L (26-192); Globulin 2.8 g/dL (1.3-4.6); Glomerular Filtration Rate 25.4 mL/min (90-130); Glucose 277 mg/dL (65-115); Magnesium 1.6 mg/dL (1.7-2.3); Osmolality Calculated 320 mOsm/kg (285-295); Potassium 4.6 mmol/L (3.5-5.1); Sodium 140 mmol/L (136-145); Total Bilirubin 0.2 mg/dL (0.15-1.2); Total Protein 6.3 g/dL (6.6-8.7)
[2022-02-15 04:50] LABS: NT Pro B Type Natriuretic Pept 46665 pg/mL (0-125)
[2022-02-15 05:16] LABS: Troponin 5 6HR 364.7 ng/L (0-10); Troponin 5 6HR Delta 10.7 ng/L (0-12)
[2022-02-15 06:51] LABS: Glucose Point of Care 217 mg/dL (70-110)
[2022-02-15] MEDS: ipratropium-albuterol 3 mL Neb INHALATION ×4 (07:38→20:43)
[2022-02-15] MEDS: budesonide 0.5 mg/2 mL Neb INHALATION ×2 (07:38→20:43)
[2022-02-15 07:49] LABS: Chol HDL Ratio 1.69 mg/dL (0.0-4.40); Cholesterol 122 mg/dL (0-200); HDL Cholesterol 72 mg/dL (60-100); LDL Cholesterol Calculated 40 mg/dL (50-129); Triglycerides 52 mg/dL (0-150); VLDL Cholestrol Calculation 10 mg/dL (0-30)
--- NOTE | 2022-02-15 08:08 | US_ITS ---
WS: [id number] ULTRASOUND RENAL TECHNIQUE: Ultrasound examination of both kidneys. CLINICAL INFORMATION: re-evaluate for right hydronephrosis COMPARISON: February 12, 2022 FINDINGS: RIGHT: Right kidney is normal in size and appearance. Echogenicity: Normal. Cortical thickness: cm; Normal. Hydronephrosis: None. Perinephric fluid: None. Right kidney measures: 11.9 cm x 5.9 cm x 5.5 cm. LEFT: Left kidney is normal in size and appearance. Echogenicity: Normal. Cortical thickness: cm; Normal. Hydronephrosis: None. Perinephric fluid: None. Left kidney measures: 9.0 cm x 4.1 cm x 4.3 cm. Normal visualized aorta. Sanders catheter. US/US renal BI* [id number] IMPRESSION: 1. No hydronephrosis in either kidney today. RIGHT hydronephrosis has resolved . 2. Sanders catheter.
[2022-02-15 09:29] LABS: Partial Thromboplastin Time 35.8 SECONDS (23.9-36.7)
[2022-02-15] MEDS: sodium polystyrene sulfonate 15 gm/60 mL Btl PO ×2 (09:55→17:48)
[2022-02-15] MEDS: nitroglycerin 1 gm/inch oint Pkt 1 INCH TOPICAL ×2 (09:55→16:16)
[2022-02-15] MEDS: azithromycin 250 mg Tablet 500 MG PO (09:55)
[2022-02-15] MEDS: magnesium oxide 400 mg tablet PO ×2 (09:55→17:48)
[2022-02-15] MEDS: predniSONE 20 mg Tablet 40 MG PO (09:55)
[2022-02-15] MEDS: insulin lispro 100 unit/1 mL SUBCUT ×5 (09:57→22:28)
[2022-02-15] MEDS: insulin glargine 100 units/1 mL 20 UNIT SUBCUT (09:57)
--- NOTE | 2022-02-15 10:09 | PM.CONSULT ---
Providers/Reason For Consult Consulting Physician/Specialty*: Dr. Montero, Cardiology Reason for Consult*: Chest pain, elevated troponin Attending Physician: Ruy Edgar MD Primary Care Provider: SUZANNE Dias History of Present Illness History of Present Illness Donita Aguilar is a 36 year old female with past medical history of poorly controlled type 1 diabetes mellitus, diabetic gastroparesis, history of methamphetamine use (used to smoke, last use 2-1/2 months ago per patient) recent COVID-19 pneumonia, history of left lower lobectomy for cavitary pneumonia was hospitalized with complaints of shortness of breath. On presentation symptoms were shortness of breath on laying down as well as chest chest tightness when laying down. No fever, cough, chills on admission. She was diuresed with IV Lasix for pulmonary edema as well as treated for COPD exacerbation. Her echocardiogram this hospitalization shows mildly reduced left vent systolic function of 40 to 45% with moderate hypokinesis of mid to apical anterior and anterolateral espinosa. Normal right ventricular size and systolic function. LV function seems to have decreased slightly when compared to prior study earlier this month and the wall motion abnormality in anterolateral wall appears to be new. Initially plan was to do a stress test this morning, but patient developed retrosternal chest discomfort with radiation to her right arm and right side of her neck that lasted on and off throughout the night. EKG showed sinus tachycardia with right axis deviation and ST and T depression and T wave inversion in lead to 3 aVF V[address] and V6. [address] depression and T wave inversion in inferior leads appears to be new when compared to prior EKGs. T wave inversion in 1 and aVL present V4 is not appreciated on the last EKG. Troponin T 354 at 2 hours 351 and at 6 hours 365. Lipid panel with total cholesterol 122, triglyceride 52, LDL 40 and HDL 72. Review of Systems Const: Denies: fever(s) or chills ENMT: Denies: change in hearing or epistaxis Card: Reports: chest pain; Denies: palpitations, edema, syncope or pre-syncope Resp: Reports: dyspnea; Denies: wheezing or pain on inspiration GI: Denies: abdominal pain, hematemesis or hematochezia : Denies: hematuria Musc: Denies: extremity swelling or joint swelling Neuro: Denies: weakness in extremities Ramiro/Lymph: Denies: petechiae or purpura All/Imm: Denies: facial swelling Medications/Allergies Home Medications Medication Instructions Recorded Confirmed Last Taken Type glucagon HCl 1 mg solution for 1 mg SUBCUT Q20M PRN hypoglycemia 08/22/20 02/10/22 Unknown Rx injection (Glucagon (HCl) #3 ea Emergency Kit) diphenhydramine HCl 25 mg tablet 25 mg PO BEDTIME 01/22/22 02/10/22 01/21/22 History (Benadryl Allergy) insulin aspart U-100 100 unit/mL See Rx Instructions .Route .COMPLEX 01/22/22 02/10/22 02/07/22 History (3 mL) subcutaneous pen (Novolog 6 units Flexpen U-100 Insulin aspart) ondansetron 4 mg disintegrating 4 mg PO Q6H PRN nausea and 01/25/22 02/10/22 Unknown Rx tablet vomiting #14 tabs furosemide 20 mg tablet 20 mg PO DAILY@0800 PRN Weight 01/29/22 02/10/22 Unknown Rx gain #30 tabs insulin glargine 100 unit/mL (3 15 unit (0.15 mL) SUBCUT BID #15 mL 01/29/22 02/10/22 02/07/22 Rx mL) subcutaneous pen (Lantus Solostar U-100 Insulin) amoxicillin 500 mg-potassium 1 tab PO BID #14 tabs 02/04/22 02/10/22 Unknown Rx clavulanate 125 mg tablet (Augmentin) albuterol sulfate 90 mcg/actuation 2 puff inhalation Q8H PRN 02/07/22 02/10/22 Unknown History aerosol inhaler shortness of breath or wheezing bismuth subsalicylate 262 mg 2 tab PO Q1H PRN Heartburn 02/07/22 02/10/22 02/07/22 History tablet (Pepto-Bismol) calcium carbonate 1,000 1 tab PO TID PRN abdominal pain 7 02/07/22 02/10/22 Unknown Rx mg-simethicone 60 mg chewable days #21 tabs tablet (Maalox Advanced) famotidine 20 mg tablet (Pepcid) 20 mg PO BID PRN abdominal pain 10 02/07/22 02/10/22 Unknown Rx days #20 tabs pantoprazole 40 mg tablet,delayed 40 mg PO DAILY@12 02/07/22 02/10/22 Unknown History release tamsulosin 0.4 mg capsule 0.4 mg PO BEDTIME 02/07/22 02/10/22 Unknown History Allergies Allergy/AdvReac Type Severity Reaction Status Date / Time acetaminophen AdvReac Mild ADR-Gastrointestinal Verified 02/07/22 15:29 Upset Current Medications Generic Name Dose Route Start Last Admin Trade Name Freq PRN Reason Stop Dose Admin Al Hydrox/Mg Hydrox/Simethicone 30 ml 02/10/22 20:06 02/14/22 20:40 Himl-Eyk-Tdfpaledb-Rubén 30 Ml Udc PO 30 ml Q4H PRN Administration INDIGESTION Albuterol/Ipratropium 3 ml 02/10/22 08:00 02/15/22 07:38 Ipratropium-Albuterol 3 Ml Neb INHALATION 3 ml QID.RESPIRATORY SHAY Administration Aspirin 81 mg 02/14/22 23:35 02/15/22 09:55 Aspirin 81 Mg Ec Tablet PO 81 mg DAILY SHAY Administration Azithromycin 500 mg 02/11/22 09:00 02/15/22 09:55 Azithromycin 250 Mg Tablet PO 500 mg DAILY SHAY Administration Protocol Budesonide 0.5 mg 02/10/22 08:00 02/15/22 07:38 Budesonide 0.5 Mg/2 Ml Neb INHALATION 0.5 mg BID.RESPIRATORY SHAY Administration Carvedilol 3.125 mg 02/15/22 09:00 02/15/22 09:55 Carvedilol 3.125 Mg Tablet PO 3.125 mg BID SHAY Administration Dextrose 50 ml 02/11/22 13:49 02/14/22 11:43 Dextrose 50% Syringe 50 Ml IVP 50 ml PRN PRN Administration hypoglycemia protocol Protocol Diphenhydramine HCl 25 mg 02/10/22 21:00 02/14/22 20:07 Diphenhydramine 25 Mg Capsule PO 25 mg BEDTIME SHAY Administration Heparin Sodium (Porcine) 0 unit 02/14/22 23:02 02/15/22 02:02 Heparin 5,000 Unit/Ml Inj 1 Ml IV 3,000 unit PRN PRN Administration Heparin weight-base protocol Protocol Heparin Sodium/Sodium Chloride 25,000 unit in 500 mls @ 0 mls/hr 02/14/22 23:15 02/15/22 02:07 Heparin Drip IV 14.41 unit/kg/hr .Q0M SHAY 17 mls/hr Titration Protocol Per Protocol Insulin Glargine 20 unit 02/12/22 18:00 02/15/22 09:57 Insulin Glargine 100 Units/1 Ml SUBCUT 20 unit BID SHAY Administration Insulin Human Lispro 0 unit 02/10/22 08:00 02/15/22 09:58 Insulin Lispro 100 Unit/1 Ml SUBCUT 4 unit WM&BEDTIME SHAY Administration Protocol Insulin Human Lispro 5 unit 02/11/22 17:00 02/15/22 09:57 Insulin Lispro 100 Unit/1 Ml SUBCUT 5 unit AC SHAY Administration Magnesium Oxide 400 mg 02/15/22 09:00 02/15/22 09:55 Magnesium Oxide 400 Mg Tablet PO 400 mg BID SHAY Administration Nitroglycerin 1 inch 02/15/22 09:30 02/15/22 09:55 Nitroglycerin 1 Gm/Inch Oint Pkt TOPICAL 1 inch Q6H SHAY Administration Ondansetron HCl 4 mg 02/10/22 07:40 02/11/22 08:36 Ondansetron 2 Mg/Ml Sdv 2 Ml IVP 4 mg Q8H PRN Administration vomiting, or N/V if npo Pantoprazole Sodium 40 mg 02/10/22 12:00 02/14/22 14:[address] 40 Mg Tablet PO 40 mg DAILY@12 SHAY Administration Prednisone 40 mg 02/15/22 09:00 02/15/22 09:55 Prednisone 20 Mg Tablet PO 02/18/22 08:59 40 mg DAILY SHAY Administration Sodium Polystyrene Sulfonate 15 gm 02/15/22 09:00 02/15/22 09:55 Sodium Polystyrene Sulfonate 15 Gm/60 Ml Btl PO 15 gm BID SHAY Administration Tamsulosin HCl 0.4 mg 02/10/22 21:00 02/14/22 20:07 Tamsulosin 0.4 Mg Capsule PO 0.4 mg BEDTIME SHAY Administration PFSH Acute PFSH: Medical History (Updated 02/15/22 @ 14:25 by Ruy Edgar MD) Acute hyperglycemia Acute kidney injury superimposed on chronic kidney disease Anemia Anxiety Arnold-Chiari malformation CAD (coronary artery disease) Celiac disease CHF (congestive heart failure), NYHA class III Chronic headache Complicated UTI (urinary tract infection) COVID-19 Cystitis Diabetic gastroparesis -continue Reglan Diabetic neuropathy associated with type 1 diabetes mellitus DKA (diabetic ketoacidoses) Drug abuse Esophagitis History of pancreatitis HTN (hypertension) Long-term insulin use Lymphadenitis Metabolic acidosis Migraine headache Neurogenic bladder Non-alcoholic fatty liver disease Pancreatitis PID (pelvic inflammatory disease) Pleural effusion 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 Pulmonary hypertension Pyelonephritis Recurrent UTI Respiratory failure Sepsis Tobacco dependence Type 1 diabetes mellitus Uncontrolled type 1 diabetes mellitus Ureterolithiasis Surgical History History of cholecystectomy History of endoscopy History of lung surgery -s/p LLL lobectomy secondary to cavitary pneumonia (2017) Family History Grandfather Diabetes Other Heart disease Hypertension Social History Smoking and tobacco status: current every day smoker cigarettes Packs smoked per day: 0.5 Second hand smoke exposure: Yes Alcohol intake: never Household members: children Housing: House Marital status: Single Current occupational status: unemployed Female Reproductive History: Date of last menstrual period: 07/24/21 Vitals/I&O/Wt Last Vital Signs Temp 97.9 F 02/15/22 07:57 Pulse 80 02/15/22 07:57 Resp 18 02/15/22 07:57 BP 148/96 02/15/22 07:57 Pulse Ox 95 02/15/22 07:57 O2 Del Method 02/15/22 07:57 O2 Flow Rate 1.5 02/15/22 07:57 02/14/22 02/15/22 02/15/22 22:59 06:59 14:59 Intake Total 390.1 / 1020.3 109.35 / 1129.65 Output Total 1500 / 1500 3300 / 4800 Balance -1109.9 / -479.7 -3190.65 / -3670.35 Physical Exam Narrative: GENERAL: Averagely built and averagely nourished in no acute distress HEENT: Extraocular movement intact. No pallor or icterus. NECK: No JVD, No carotid bruit. CARDIOVASCULAR SYSTEM: S1-S2 regular. No murmur or gallops. RESPIRATORY SYSTEM: Chest clear to auscultation except at bases. No wheezes rhonchi or rubs heard. No use of accessory muscles. ABDOMEN: Soft, nontender and nondistended. Normal bowel sounds present. EXTREMITIES: No cyanosis or clubbing. No edema. No signs of chronic venous insufficiency. MANAGER COMMISSION: Patient is alert oriented ?3. No focal neurological deficits. Urinary Catheter Management: Sanders: Cath Placed During This Visit: yes Reason for Continuing Indwelling Catheter: Acute Urinary Retention or Obstruction Urinary Catheter Date of Insertion: 02/12/22 Urinary Catheter Time of Insertion: 15:50 Data : 02/15/22 03:05 02/15/22 03:05 Micro: Microbiology 02/10/22 06:49 Blood Culture - Final Blood NO GROWTH AFTER 5 DAYS 02/10/22 06:41 Blood Culture - Final Blood NO GROWTH AFTER 5 DAYS 02/12/22 16:15 Group A Streptococcus Rapid Screen - Final Throat Other data: Renal ultrasound with moderate right hydronephrosis VQ scan with low probability of PE. A&P Assessment and plan (1) NSTEMI (non-ST elevated myocardial infarction): Episode of chest discomfort with increase in troponin since admission from 66 to [address]s. EKG with ST - T wave changes noted in inferior and lateral leads. Echocardiogram with LVEF of 40-45 with anterior and anterolateral regional wall motion abnormality. Patient has multiple CAD risk factors of poorly controlled type 1 diabetes mellitus, smoking and family history of CAD -I discussed with the patient option of doing coronary angiogram versus stress testing followed by coronary angiogram. -She was also explained the high risk of contrast-induced nephropathy. Risks and benefits were discussed with the patients. Alternate management options were discussed with the patient as well. Possible complications including risk of heart attack stroke and , coronary perforation, arrhythmia, cardiac tamponade in urgent CABG were discussed with the patient as well. -She is agreeable with the plan to proceed with coronary angiogram. -continue ASA, statin, coreg, NTG and heparin gtt -I think it would be prudent to involve nephrology. -We will tentatively keep her n.p.o. after midnight. If creatinine continues to improve plan for [facility] tomorrow/over the weekend Status: Acute (2) CHF (congestive heart failure), NYHA class III: HFmrEF Status: Acute (3) Type 1 diabetes mellitus: Status: Acute Plan ERICA on CKD: Creatinine 2 on last hospitalization on 22 January peaked at 2.5 and 1.8 on discharge. She was admitted with creatinine of 1.6 this visit peaked at 2.8 and is now down to 2.2. Recent COVID-19 pneumonia Tobacco abuse History of smoking Meth Family history of CAD in mother at age 57 Diabetic neuropathy and gastroparesis Normocytic Anemia Thank you for allowing me to participate in patient's care. Please feel free to call with questions or concerns. Consult Attestations Time Spent in Patient Care: Greater than 35 minutes Coding Level of Care Code Acute Paid Internship for [facility] Fwd Diagnoses NSTEMI (non-ST elevated myocardial infarction) I21.4 CHF (congestive heart failure), NYHA class III I50.9 Type 1 diabetes mellitus E10.9
[2022-02-15 10:23] LABS: Glucose Point of Care 176 mg/dL (70-110)
[2022-02-15 11:41] LABS: Glucose Point of Care 327 mg/dL (70-110)
[2022-02-15 11:44] LABS: Estmated Average Glucose 249; Hemoglobin A1C 10.3 % (4.0-6.0)
[2022-02-15] MEDS: pantoprazole DR 40 mg Tablet PO (13:04)
--- NOTE | 2022-02-15 14:05 | PM.PN ---
Subjective Subjective: Overnight patient developed central chest pain. As per the patient chest pain was going to her neck. Pain started after she received nebulization treatment. Denied any episode of shortness of breath, dizziness, palpitations along with the chest pain. Troponin cycle was done and started on heparin drip for non-ST elevation LA. Today morning on examination patient still complaining of minimal light dull aching chest pain which is retrosternal without radiation. Denies any chest pressure or difficulty in breathing has remained hemodynamically stable and afebrile. Lexiscan stress test was canceled as per cardiology recommendations early in the morning by the nurse. Vitals/I&O/Wt Last Vital Signs Temp 98.5 F 02/15/22 11:12 Pulse 90 02/15/22 11:42 Resp 17 02/15/22 11:37 BP 142/92 02/15/22 11:12 Pulse Ox 97 02/15/22 11:37 O2 Del Method 02/15/22 11:37 O2 Flow Rate 1.5 02/15/22 11:37 02/14/22 02/15/22 02/15/22 22:59 06:59 14:59 Intake Total 390.1 / 1020.3 109.35 / 1129.65 480 / 480 Output Total 1500 / 1500 3300 / 4800 Balance -1109.9 / -479.7 -3190.65 / -3670.35 480 / 480 Physical Exam Narrative: AOx3, no acute distress, pallor present chronically ill-appearing. Heart regular normal S1-S2, soft pansystolic murmur at apex Lungs diffuse crackles bilateral bases with rhonchi heard in the left upper posterior lung abdomen soft nontender nondistended positive bowel sounds Extremities +2 pitting edema to knees. Urinary Catheter Management: Sanders: Cath Placed During This Visit: yes Reason for Continuing Indwelling Catheter: Acute Urinary Retention or Obstruction Urinary Catheter Date of Insertion: 02/12/22 Urinary Catheter Time of Insertion: 15:50 Data : 02/15/22 03:05 02/15/22 03:05 Micro: Microbiology 02/10/22 06:49 Blood Culture - Final Blood NO GROWTH AFTER 5 DAYS 02/10/22 06:41 Blood Culture - Final Blood NO GROWTH AFTER 5 DAYS 02/12/22 16:15 Group A Streptococcus Rapid Screen - Final Throat A&P Assessment and plan (1) Respiratory failure with hypoxia: On admission patient was found to have hypoxia with use of accessory muscle. Most likely secondary to congestive heart failure along with mild COPD exacerbation. Less likely from pneumonia. Patient was recently at an outside hospital where she was treated for lung abscess. Also has recent history of COVID-19. VQ scan low probability for PE. Status: Acute (2) CHF (congestive heart failure), NYHA class III: Repeat limited echocardiogram done shows an EF of 40 to 45% with persistent hypokinesia in mid to apical anterior and anterolateral wall, mild to moderate MR, mild TR, PASP of 61 mmHg. Well compensated for now. Status: Acute Qualifiers: Congestive heart failure type: systolic Congestive heart failure chronicity: acute on chronic Qualified Code(s): I50.23 - Acute on chronic systolic (congestive) heart failure (3) Pulmonary edema: Hold off on any further Lasix for diuresis for now. Urine output of more than 4 L in last 24 hours. For possible COPD exacerbation switch to oral prednisone 40 mg for next 3 days. Pulmicort twice daily, DuoNebs 4 times daily. Oxygen supplementation keeping saturation over 90%. Status: Acute (4) NSTEMI (non-ST elevated myocardial infarction): Baseline troponin overnight over 300 with nonsignificant delta. Slight chest pain today morning. Continue with heparin drip. Appreciate cardiology recommendations. Lexiscan canceled. Plan for cardiac catheterization in coming days depending on renal functions. Nitropatch 1 inch every 6 hourly for now. Goal blood pressure less than 140/90 mmHg. Start on Coreg. Check A1c, lipid panel. Continue with aspirin 81 mg daily. Switch to atorvastatin 20 mg daily Status: Acute (5) CAD (coronary artery disease): Significant regional wall motion abnormality on echocardiogram. Treatment as above. Status: Acute (6) CKD (chronic kidney disease): Creatinine since earlier in January more than 2. On review of chart in 2020 was normal to 1.1. Robust urine output in last 24 hours since placement of Sanders catheterization. High concerns for distal urinary obstruction because of neurogenic bladder. Hydronephrosis on the right side has resolved on repeat ultrasound from today. Because of recurrent and persistent hyperkalemia will consult nephrology. Continue with Kayexalate twice daily. Repeat BMP every 12 hourly. Most likely patient will need to be discharged on Sanders catheter with follow-up with Dr. Rubio as an outpatient. Continue Flomax 0.4 daily. Nephrotic syndrome ruled out on previous admission from 24-hour protein evaluation. Status: Inactive (7) Neurogenic bladder: Sanders catheterization. Continue with Flomax. Status: Acute (8) Type 1 diabetes mellitus: Uncontrolled blood sugars. Hemoglobin A1c was just over 10. Increase Lantus to 20 units twice daily add a prandial Humalog with sliding scale in addition. Will need tighter control Status: Acute (9) COPD exacerbation: Treatment as above. Azithromycin 5 mg oral daily. Check Streptococcus group A routine. Check urine Legionella, bacterial antigen. Sputum culture. Status: Acute (10) Diabetic neuropathy associated with type 1 diabetes mellitus: Status: Chronic Qualifiers: Diabetes mellitus complication detail: diabetic polyneuropathy Qualified Code(s): E10.42 - Type 1 diabetes mellitus with diabetic polyneuropathy (11) Diabetic gastroparesis: As above Reglan 4 times daily. Status: Acute (12) Abdominal pain: Patient has been seen here recently for abdominal pain placed on Pepcid, Pepto-Bismol, Maalox as needed. Will prescribe Mylanta as needed give a dose now. After reviewing past medical history it is likely patient has gastroparesis. Restarted Reglan. Status: Inactive (13) Pulmonary hypertension: Status: Acute Plan Analgesia: Tylenol as needed, morphine 1 mg every 4 hours as needed. Hold off on oral morphine Glycemic control: Insulin sliding scale, glargine 20 units twice daily, lispro 5 units 3 meals. Check A1c. Nutrition: Carb consistent diet CODE STATUS: Full code PUD prophylaxis: Protonix DVT prophylaxis: Heparin drip Discharge planning: Home once medically stable Continue with care at [facility]. This documentation was created by [employer] high density press laborer software. Every effort was made to ensure accuracy of high density press laborer. Any obvious errors or omissions should be clarified with the author of the document. Attestations Medical Necessity Statement*: Requires further hospitalization for management of non-ST elevation LA, neurogenic bladder leading to ERICA versus CKD, congestive heart failure Time Spent in Patient Care: Greater than 35 minutes Coding Level of Care Code Acute Product Transfer Pumper for [facility] Fwd Diagnoses Respiratory failure with hypoxia J96.91 CHF (congestive heart failure), NYHA class III I50.23 Congestive heart failure type: systolic Congestive heart failure chronicity: acute on chronic Pulmonary edema J81.1 NSTEMI (non-ST elevated myocardial infarction) I21.4 CAD (coronary artery disease) I25.10 CKD (chronic kidney disease) N18.9 Neurogenic bladder N31.9 Type 1 diabetes mellitus E10.9 COPD exacerbation J44.1 Diabetic neuropathy associated with type 1 diabetes mellitus E10.42 Diabetes mellitus complication detail: diabetic polyneuropathy Diabetic gastroparesis E11.43; K31.84 Abdominal pain R10.9 Pulmonary hypertension I27.20
[2022-02-15 17:52] LABS: Glucose Point of Care 156 mg/dL (70-110)
--- NOTE | 2022-02-15 18:00 | PC.NURSE ---
patient reports back pain notified provider instructions to start gabpentin 100mg TID
[2022-02-15 18:05] LABS: Glucose Point of Care 68 mg/dL (70-110)
[2022-02-15] MEDS: insulin glargine 100 units/1 mL 25 UNIT SUBCUT (18:40)
[2022-02-15 19:43] LABS: Partial Thromboplastin Time 32.1 SECONDS (23.9-36.7)
[2022-02-15] MEDS: tamsulosin 0.4 mg Capsule PO (20:54)
[2022-02-15] MEDS: diphenhydrAMINE 25 mg Capsule PO (20:54)
[2022-02-15] MEDS: atorvastatin 40 mg Tablet 20 MG PO (20:54)
[2022-02-15] MEDS: gabapentin 100 mg Capsule PO (20:54)
[2022-02-15 21:16] LABS: Glucose Point of Care 272 mg/dL (70-110)
--- NOTE | 2022-02-15 22:33 | PC.NURSE ---
Patient refused tylenol. States it makes her stomach hurt and she is allergic.
[2022-02-16] VITALS (15 sets, daily range): BP systolic 108–154; BP diastolic 69–91; PULSE 65–100; RESP 14–19; TEMP 36.4–37.2; O2SAT 96–100
[2022-02-16 02:44] LABS: Platelet Count 311 10^3/cmm (130-400)
[2022-02-16] MEDS: heparin drip 25,000 UNIT/500 ML PREMIX 25 UNIT IV (03:01)
[2022-02-16 03:06] LABS: Partial Thromboplastin Time 104.5 SECONDS (23.9-36.7)
[2022-02-16 03:08] LABS: Alanine Aminotransferase 11 U/L (0-33); Albumin Level 2.9 g/dL (3.5-5.2); Alkaline Phosphatase 96 U/L (35-105); Anion Gap 15.7 (5-19); Aspartate Amino Transferase 7 U/L (0-32); Blood Urea Nitrogen 64 mg/dL (6-20); Calcium 8.2 mg/dL (8.5-10.5); Carbon Dioxide 29 mmol/L (22-29); Chloride 100 mmol/L (98-107); Glomerular Filtration Rate 26.8 mL/min (90-130); Glucose 197 mg/dL (65-115); Osmolality Calculated 316 mOsm/kg (285-295); Potassium 3.7 mmol/L (3.5-5.1); Sodium 141 mmol/L (136-145); Total Bilirubin 0.2 mg/dL (0.15-1.2); Total Protein 5.9 g/dL (6.6-8.7)
[2022-02-16 03:13] LABS: Magnesium 1.6 mg/dL (1.7-2.3)
[2022-02-16 06:17] LABS: Glucose Point of Care 164 mg/dL (70-110)
--- NOTE | 2022-02-16 07:44 | PM.CONSULT ---
Providers/Reason For Consult Consulting Physician/Specialty*: ashlee davies md Reason for Consult*: CKD Requesting Physician: DR Christianson Attending Physician: Ruy Edgar MD Primary Care Provider: SUZANNE Dias History of Present Illness History of Present Illness Donita Aguilar is a 36 year old female PMHx of IDDM, cavitary pna, previous IVDU. Recent COVID-19 pna. Pt was admitted w/ edema and SOB on 02-10-22 . She was admitted for COPD exacerbation and CHF exacerbation. She was started on lasix and dx w/ LUIGI. baseline cr 1.1. admission cr 1.6 mg/dl. Crowder was placed on night of 02-12-22 w/ large uop. Echo revealed an EF of 40-45% Cardiology saw the pt yesterday for NSTEMI -plan for cardiac cath. renal called as pt developed LUIGI- peak cr of 2.8 mg/dl on 02-13-22. cr is now 2.6 mg/dl. Pt c/o CP and SHERMAN/ SOB. no orthopnea. Review of Systems Narrative: weak, sob, cp. no benavides, f/c/c/ough/d/abd pain/ has a crowder. + stocking /glove neuropathy Medications/Allergies Home Medications Medication Instructions Recorded Confirmed Last Taken Type glucagon HCl 1 mg solution for 1 mg SUBCUT Q20M PRN hypoglycemia 08/22/20 02/10/22 Unknown Rx injection (Glucagon (HCl) #3 ea Emergency Kit) diphenhydramine HCl 25 mg tablet 25 mg PO BEDTIME 01/22/22 02/10/22 01/21/22 History (Benadryl Allergy) insulin aspart U-100 100 unit/mL See Rx Instructions .Route .COMPLEX 01/22/22 02/10/22 02/07/22 History (3 mL) subcutaneous pen (Novolog 6 units Flexpen U-100 Insulin aspart) ondansetron 4 mg disintegrating 4 mg PO Q6H PRN nausea and 01/25/22 02/10/22 Unknown Rx tablet vomiting #14 tabs furosemide 20 mg tablet 20 mg PO DAILY@0800 PRN Weight 01/29/22 02/10/22 Unknown Rx gain #30 tabs insulin glargine 100 unit/mL (3 15 unit (0.15 mL) SUBCUT BID #15 mL 01/29/22 02/10/22 02/07/22 Rx mL) subcutaneous pen (Lantus Solostar U-100 Insulin) amoxicillin 500 mg-potassium 1 tab PO BID #14 tabs 02/04/22 02/10/22 Unknown Rx clavulanate 125 mg tablet (Augmentin) albuterol sulfate 90 mcg/actuation 2 puff inhalation Q8H PRN 02/07/22 02/10/22 Unknown History aerosol inhaler shortness of breath or wheezing bismuth subsalicylate 262 mg 2 tab PO Q1H PRN Heartburn 02/07/22 02/10/22 02/07/22 History tablet (Pepto-Bismol) calcium carbonate 1,000 1 tab PO TID PRN abdominal pain 7 02/07/22 02/10/22 Unknown Rx mg-simethicone 60 mg chewable days #21 tabs tablet (Maalox Advanced) famotidine 20 mg tablet (Pepcid) 20 mg PO BID PRN abdominal pain 10 02/07/22 02/10/22 Unknown Rx days #20 tabs pantoprazole 40 mg tablet,delayed 40 mg PO DAILY@12 02/07/22 02/10/22 Unknown History release tamsulosin 0.4 mg capsule 0.4 mg PO BEDTIME 02/07/22 02/10/22 Unknown History Allergies Allergy/AdvReac Type Severity Reaction Status Date / Time acetaminophen AdvReac Mild ADR-Gastrointestinal Verified 02/07/22 15:29 Upset Current Medications Generic Name Dose Route Start Last Admin Trade Name Freq PRN Reason Stop Dose Admin Al Hydrox/Mg Hydrox/Simethicone 30 ml 02/10/22 20:06 02/14/22 20:40 Nxhm-Vsa-Fulugfwvm-Rubén 30 Ml Udc PO 30 ml Q4H PRN Administration INDIGESTION Albuterol/Ipratropium 3 ml 02/10/22 08:00 02/15/22 20:43 Ipratropium-Albuterol 3 Ml Neb INHALATION 3 ml QID.RESPIRATORY SHAY Administration Aspirin 81 mg 02/14/22 23:35 02/15/22 09:55 Aspirin 81 Mg Ec Tablet PO 81 mg DAILY SHAY Administration Atorvastatin Calcium 20 mg 02/15/22 21:00 02/15/22 20:54 Atorvastatin 40 Mg Tablet PO 20 mg BEDTIME SHAY Administration Azithromycin 500 mg 02/11/22 09:00 02/15/22 09:55 Azithromycin 250 Mg Tablet PO 500 mg DAILY SHAY Administration Protocol Budesonide 0.5 mg 02/10/22 08:00 02/15/22 20:43 Budesonide 0.5 Mg/2 Ml Neb INHALATION 0.5 mg BID.RESPIRATORY SHAY Administration Carvedilol 3.125 mg 02/15/22 09:00 02/15/22 17:48 Carvedilol 3.125 Mg Tablet PO 3.125 mg BID SHAY Administration Dextrose 50 ml 02/11/22 13:49 02/14/22 11:43 Dextrose 50% Syringe 50 Ml IVP 50 ml PRN PRN Administration hypoglycemia protocol Protocol Diphenhydramine HCl 25 mg 02/10/22 21:00 02/15/22 20:54 Diphenhydramine 25 Mg Capsule PO 25 mg BEDTIME SHAY Administration Gabapentin 100 mg 02/15/22 21:00 02/15/22 20:54 Gabapentin 100 Mg Capsule PO 100 mg TID SHAY Administration Heparin Sodium (Porcine) 0 unit 02/14/22 23:02 02/15/22 13:04 Heparin 5,000 Unit/Ml Inj 1 Ml IV 3,000 unit PRN PRN Administration Heparin weight-base protocol Protocol Heparin Sodium/Sodium Chloride 25,000 unit in 500 mls @ 0 mls/hr 02/14/22 23:15 02/16/22 04:14 Heparin Drip IV 17.81 unit/kg/hr .Q0M SHAY 21 mls/hr Titration Protocol Per Protocol Insulin Glargine 25 unit 02/15/22 18:00 02/15/22 18:40 Insulin Glargine 100 Units/1 Ml SUBCUT 25 unit BID SHAY Administration Insulin Human Lispro 0 unit 02/10/22 08:00 02/15/22 22:28 Insulin Lispro 100 Unit/1 Ml SUBCUT 10 unit WM&BEDTIME SHAY Administration Protocol Insulin Human Lispro 5 unit 02/11/22 17:00 02/15/22 17:59 Insulin Lispro 100 Unit/1 Ml SUBCUT Not Given AC SHAY Magnesium Oxide 400 mg 02/15/22 09:00 02/15/22 17:48 Magnesium Oxide 400 Mg Tablet PO 400 mg BID SHAY Administration Nitroglycerin 1 inch 02/15/22 09:30 02/16/22 03:57 Nitroglycerin 1 Gm/Inch Oint Pkt TOPICAL Not Given Q6H SHAY Ondansetron HCl 4 mg 02/10/22 07:40 02/11/22 08:36 Ondansetron 2 Mg/Ml Sdv 2 Ml IVP 4 mg Q8H PRN Administration vomiting, or N/V if npo Pantoprazole Sodium 40 mg 02/10/22 12:00 02/15/22 13:[address] 40 Mg Tablet PO 40 mg DAILY@12 SHAY Administration Prednisone 40 mg 02/15/22 09:00 02/15/22 09:55 Prednisone 20 Mg Tablet PO 02/18/22 08:59 40 mg DAILY SHAY Administration Sodium Polystyrene Sulfonate 15 gm 02/15/22 09:00 02/15/22 17:48 Sodium Polystyrene Sulfonate 15 Gm/60 Ml Btl PO 15 gm BID SHAY Administration Tamsulosin HCl 0.4 mg 02/10/22 21:00 02/15/22 20:54 Tamsulosin 0.4 Mg Capsule PO 0.4 mg BEDTIME SHAY Administration PFSH Acute PFSH: Medical History (Updated 02/16/22 @ 08:06 by Simba Davies MD) Acute hyperglycemia Acute kidney injury superimposed on chronic kidney disease Anemia Anxiety Arnold-Chiari malformation CAD (coronary artery disease) Celiac disease CHF (congestive heart failure), NYHA class III Chronic headache Complicated UTI (urinary tract infection) COVID-19 Cystitis Diabetic gastroparesis -continue Reglan Diabetic neuropathy associated with type 1 diabetes mellitus DKA (diabetic ketoacidoses) Drug abuse Esophagitis History of pancreatitis HTN (hypertension) Long-term insulin use Lymphadenitis Metabolic acidosis Migraine headache Neurogenic bladder Non-alcoholic fatty liver disease Pancreatitis PID (pelvic inflammatory disease) Pleural effusion 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 Pulmonary hypertension Pyelonephritis Recurrent UTI Respiratory failure Sepsis Tobacco dependence Type 1 diabetes mellitus Uncontrolled type 1 diabetes mellitus Ureterolithiasis Surgical History History of cholecystectomy History of endoscopy History of lung surgery -s/p LLL lobectomy secondary to cavitary pneumonia (2017) Family History Grandfather Diabetes Other Heart disease Hypertension Social History Smoking and tobacco status: current every day smoker cigarettes Packs smoked per day: 0.5 Second hand smoke exposure: Yes Alcohol intake: never Household members: children Housing: House Marital status: Single Current occupational status: unemployed Female Reproductive History: Date of last menstrual period: 07/24/21 Vitals/I&O/Wt Last Vital Signs Temp 98.9 F 02/16/22 04:00 Pulse 78 02/16/22 06:00 Resp 19 H 02/16/22 04:00 BP 154/91 02/16/22 04:00 Pulse Ox 98 02/16/22 04:00 O2 Del Method 02/15/22 20:43 O2 Flow Rate 2 02/15/22 20:43 02/15/22 02/16/22 02/16/22 22:59 06:59 14:59 Intake Total 401 / 1303.183 177.884 / 1481.067 Output Total 500 / 2100 2100 / 4200 Balance -99 / -796.817 -1922.116 / -2718.933 Physical Exam Narrative: young lady, comfortable in bed, NARD vs noted heent- nc/at, eomi, anicteric neck supple lungs dull bases heart reg abd soft, nt, nd, + bs ext trace edema neuro- a,a, o x 3 Urinary Catheter Management: Crowder: Cath Placed During This Visit: yes Reason for Continuing Indwelling Catheter: Accurate Measurement of Urinary Output in Critically Ill Patients Urinary Catheter Date of Insertion: 02/12/22 Urinary Catheter Time of Insertion: 15:50 Data : 02/16/22 02:26 02/16/22 02:26 Micro: Microbiology 02/10/22 06:49 Blood Culture - Final Blood NO GROWTH AFTER 5 DAYS 02/10/22 06:41 Blood Culture - Final Blood NO GROWTH AFTER 5 DAYS A&P Assessment and plan (1) LUIGI (acute kidney injury): 36 yr old female ex-ivdu, iddm, htn, recent cavitary pna 1. LUIGI - improved rt hydronephrosis -repeeat ua protein improved, 3 + blood -high ur na -etiology is likely partial Obstructive uroapthy. Q septic emboli Q CRS -send serologies - Q infection related -ivf 2. DM per PMD 3. CAD- for cardia cath. inc renal risk w/ cath- however, pt at high cardiac risk. recommend ivf and cath when stable 4. replace magnesium 5. hyperkalemia improved seen and examined w/ RN- telehealth visit time spent 60 min discussed w/ Dr Christianson Status: Acute Consult Attestations Medical Necessity Statement: luigi, NSTEMI, IDDM Time Spent in Patient Care: Greater than 35 minutes (>than 50% of time spent in counselling and/or direct pt care on unit). Coding Level of Care Code Acute Field Technician for Reji Chandler Diagnoses LUIGI (acute kidney injury) N17.9
[2022-02-16] MEDS: ipratropium-albuterol 3 mL Neb INHALATION ×4 (07:45→20:59)
[2022-02-16] MEDS: budesonide 0.5 mg/2 mL Neb INHALATION ×2 (07:45→20:59)
[2022-02-16 09:57] LABS: Partial Thromboplastin Time 63.6 SECONDS (23.9-36.7)
[2022-02-16 10:06] LABS: Complement C3 98 mg/dL (90-180); Uric Acid 9.3 mg/dL (2.4-5.7)
[2022-02-16] MEDS: lactated ringers 1,000 ML 100 ML IV ×2 (10:21→17:52)
[2022-02-16] MEDS: insulin lispro 100 unit/1 mL SUBCUT ×2 (10:22→21:56)
[2022-02-16] MEDS: aspirin 81 mg EC Tablet PO (10:23)
[2022-02-16] MEDS: magnesium oxide 400 mg tablet PO ×2 (10:23→17:44)
[2022-02-16] MEDS: azithromycin 250 mg Tablet 500 MG PO (10:23)
[2022-02-16] MEDS: carvedilol 6.25 mg Tablet PO ×2 (10:23→17:44)
[2022-02-16] MEDS: b-complex-vitamin c Tablet 1 EACH PO (10:24)
[2022-02-16] MEDS: gabapentin 100 mg Capsule PO ×3 (10:24→21:49)
[2022-02-16] MEDS: predniSONE 20 mg Tablet 40 MG PO (10:24)
[2022-02-16] MEDS: nitroglycerin 1 gm/inch oint Pkt 1 INCH TOPICAL ×3 (10:26→21:50)
[2022-02-16 10:27] LABS: Hepatitis C Virus Antibody Non-Reactive (Nonreactive)
[2022-02-16] MEDS: insulin glargine 100 units/1 mL 25 UNIT SUBCUT (10:34)
[2022-02-16 11:08] LABS: Glucose Point of Care 68 mg/dL (70-110)
[2022-02-16] MEDS: dextrose 50% syringe 50 mL IVP (11:52)
[2022-02-16 11:55] LABS: Glucose Point of Care 36 mg/dL (70-110)
--- NOTE | 2022-02-16 12:07 | PM.PN ---
Subjective Subjective: Patient's creatinine 2.1 this morning, UO ~4.5 L I decided to hold the procedure today based on renal function and diet was ordered before 7 am this morning. When I see the patient this afternoon, it seems like patient is still NPO with the NPO sign outside the door and patient already has had hypoglycemic spell. She has not received breakfast or lunch so far. Renal got involved with plan for IV fluids hydration today. IV fluid has not been started yet either. Medications: Reviewed: Yes Vitals/I&O/Wt Last Vital Signs Temp 98.9 F 02/16/22 04:00 Pulse 88 02/16/22 11:41 Resp 14 02/16/22 11:41 BP 146/86 02/16/22 08:00 Pulse Ox 98 02/16/22 11:41 O2 Del Method 02/16/22 11:41 O2 Flow Rate 1 02/16/22 11:41 02/15/22 02/16/22 02/16/22 22:59 06:59 14:59 Intake Total 401 / 1303.183 177.884 / 1481.067 Output Total 500 / 2100 2100 / 4200 Balance -99 / -796.817 -1922.116 / -2718.933 Physical Exam Narrative: GENERAL: Averagely built and averagely nourished in no acute distress HEENT: Extraocular movement intact. No pallor or icterus. NECK: No JVD, No carotid bruit. CARDIOVASCULAR SYSTEM: S1-S2 regular. No murmur or gallops. RESPIRATORY SYSTEM: Chest clear to auscultation except at bases. No wheezes rhonchi or rubs heard. No use of accessory muscles. ABDOMEN: Soft, nontender and nondistended. Normal bowel sounds present. EXTREMITIES: No cyanosis or clubbing. No edema. No signs of chronic venous insufficiency. DEVELOPMENT REP: Patient is alert oriented ?3. No focal neurological deficits. Urinary Catheter Management: Sanders: Cath Placed During This Visit: yes Reason for Continuing Indwelling Catheter: Accurate Measurement of Urinary Output in Critically Ill Patients Urinary Catheter Date of Insertion: 02/12/22 Urinary Catheter Time of Insertion: 15:50 Data : 02/16/22 02:26 02/16/22 02:26 A&P Assessment and plan (1) NSTEMI (non-ST elevated myocardial infarction): Episode of chest discomfort with increase in troponin since admission from 66 to 350s. EKG with ST - T wave changes noted in inferior and lateral leads. Echocardiogram with LVEF of 40-45 with anterior and anterolateral regional wall motion abnormality. Patient has multiple CAD risk factors of poorly controlled type 1 diabetes mellitus, smoking and family history of CAD -I discussed with the patient option of doing coronary angiogram versus stress testing followed by coronary angiogram. -She was also explained the high risk of contrast-induced nephropathy. Risks and benefits were discussed with the patients. Alternate management options were discussed with the patient as well. Possible complications including risk of heart attack stroke and , coronary perforation, arrhythmia, cardiac tamponade in urgent CABG were discussed with the patient as well. -She is agreeable with the plan to proceed with coronary angiogram. -continue ASA, statin, coreg, NTG and heparin gtt -I think it would be prudent to involve nephrology. -We will tentatively keep her n.p.o. after midnight. If creatinine continues to improve plan for [facility] tomorrow. Status: Acute (2) CHF (congestive heart failure), NYHA class III: HFmrEF Status: Acute Qualifiers: Congestive heart failure chronicity: acute on chronic Congestive heart failure type: systolic Qualified Code(s): I50.23 - Acute on chronic systolic (congestive) heart failure (3) Type 1 diabetes mellitus: Status: Acute Plan ERICA on CKD: Creatinine 2 on last hospitalization on 22 January peaked at 2.5 and 1.8 on discharge. She was admitted with creatinine of 1.6 this visit peaked at 2.8 and is now down to 2.2. Recent COVID-19 pneumonia Tobacco abuse History of smoking Meth Family history of CAD in mother at age 57 Diabetic neuropathy and gastroparesis Normocytic Anemia Thank you for allowing me to participate in patient's care. Please feel free to call with questions or concerns. Attestations Medical Necessity Statement*: needs hospital stay for NSTEMI, cardiomyopathy and ERICA on CKD. Coding Level of Care Code Acute Sock Examiner for nasir Chandler Diagnoses NSTEMI (non-ST elevated myocardial infarction) I21.4 CHF (congestive heart failure), NYHA class III I50.23 Congestive heart failure chronicity: acute on chronic Congestive heart failure type: systolic Type 1 diabetes mellitus E10.9
[2022-02-16 12:33] LABS: Glucose Point of Care 137 mg/dL (70-110)
--- NOTE | 2022-02-16 13:06 | P.PN_ITS ---
Subjective Subjective: No acute events overnight. Patient has remained hemodynamically stable and comfortable. Denies any nausea vomiting, headache. No further chest pain. Continued on heparin drip. 4200 cc urine output in last 24 hours. Medications: Reviewed: Yes Vitals/I&O/Wt Last Vital Signs Temp 98.9 F 02/16/22 04:00 Pulse 86 02/16/22 12:00 Resp 17 02/16/22 12:00 BP 148/82 02/16/22 12:00 Pulse Ox 100 02/16/22 12:00 O2 Del Method 02/16/22 12:00 O2 Flow Rate 1 02/16/22 11:41 02/15/22 02/16/22 02/16/22 22:59 06:59 14:59 Intake Total 401 / 1303.183 177.884 / 1481.067 Output Total 500 / 2100 2100 / 4200 Balance -99 / -796.817 -1922.116 / -2718.933 Physical Exam Narrative: AOx3, no acute distress, pallor present chronically ill-appearing. Heart regular normal S1-S2, soft pansystolic murmur at apex Lungs diffuse crackles bilateral bases with rhonchi heard in the left upper posterior lung abdomen soft nontender nondistended positive bowel sounds Extremities +2 pitting edema to knees. Urinary Catheter Management: Sanders: Cath Placed During This Visit: yes Reason for Continuing Indwelling Catheter: Accurate Measurement of Urinary Output in Critically Ill Patients Urinary Catheter Date of Insertion: 02/12/22 Urinary Catheter Time of Insertion: 15:50 Data : 02/16/22 02:26 02/16/22 02:26 A&P Assessment and plan (1) Respiratory failure with hypoxia: On admission patient was found to have hypoxia with use of accessory muscle. Most likely secondary to congestive heart failure along with mild COPD exacerbation. Less likely from pneumonia. Patient was recently at an outside hospital where she was treated for lung abscess. Also has recent history of COVID-19. VQ scan low probability for PE. Status: Acute (2) CHF (congestive heart failure), NYHA class III: Repeat limited echocardiogram done shows an EF of 40 to 45% with persistent hypokinesia in mid to apical anterior and anterolateral wall, mild to moderate MR, mild TR, PASP of 61 mmHg. Well compensated for now. Status: Acute Qualifiers: Congestive heart failure type: systolic Congestive heart failure chronicity: acute on chronic Qualified Code(s): I50.23 - Acute on chronic systolic (congestive) heart failure (3) Pulmonary edema: Hold off on any further Lasix for diuresis for now. Urine output of more than 4 L in last 24 hours. For possible COPD exacerbation switch to oral prednisone 40 mg for next 3 days. Pulmicort twice daily, DuoNebs 4 times daily. Oxygen supplementation keeping saturation over 90%. Status: Acute (4) NSTEMI (non-ST elevated myocardial infarction): Baseline troponin overnight over 300 with nonsignificant delta. Slight chest pain today morning. Continue with heparin drip. Appreciate cardiology recommendations. Lexiscan canceled. Plan for cardiac catheterization in coming days depending on renal functions. Nitropatch 1 inch every 6 hourly for now. Goal blood pressure less than 140/90 mmHg. Start on Coreg. Check A1c, lipid panel. Continue with aspirin 81 mg daily. Switch to atorvastatin 20 mg daily Status: Acute (5) CAD (coronary artery disease): Significant regional wall motion abnormality on echocardiogram. Treatment as above. Status: Acute (6) CKD (chronic kidney disease): Creatinine since earlier in January more than 2. On review of chart in 2020 was normal to 1.1. Robust urine output in last 24 hours since placement of Sanders catheterization. High concerns for distal obstructive uropathy because of neurogenic bladder. Hydronephrosis on the right side has resolved on repeat ultrasound from today. Potassium improving. Robust urine output. Hold off on Kayexalate for now. Repeat BMP every 12 hourly. Most likely patient will need to be discharged on Sanders catheter with follow-up with Dr. Rubio as an outpatient. Continue Flomax 0.4 daily. Nephrotic syndrome ruled out on previous admission from 24-hour protein evaluation. Status: Inactive (7) Neurogenic bladder: Sanders catheterization. Continue with Flomax. Status: Acute (8) Type 1 diabetes mellitus: Uncontrolled blood sugars. Hemoglobin A1c was just over 10. Increase Lantus to 20 units twice daily add a prandial Humalog with sliding scale in addition. Will need tighter control Status: Acute (9) COPD exacerbation: Treatment as above. Azithromycin 5 mg oral daily. Check Streptococcus group A routine. Check urine Legionella, bacterial antigen. Sputum culture. Status: Acute (10) Diabetic neuropathy associated with type 1 diabetes mellitus: Patient having recurrent episodes of hypoglycemia. Continue with Lantus at home dose of 15 units twice daily. Will decrease from 25 units twice daily. Discontinue standing 5 units AC. Continue with high-dose insulin protocol. Status: Chronic Qualifiers: Diabetes mellitus complication detail: diabetic polyneuropathy Qualified Code(s): E10.42 - Type 1 diabetes mellitus with diabetic polyneuropathy (11) Diabetic gastroparesis: As above Reglan 4 times daily. Status: Acute (12) Abdominal pain: Patient has been seen here recently for abdominal pain placed on Pepcid, Pepto- Bismol, Maalox as needed. Will prescribe Mylanta as needed give a dose now. After reviewing past medical history it is likely patient has gastroparesis. Restarted Reglan. Status: Inactive (13) Pulmonary hypertension: Status: Acute Plan Analgesia: Tylenol as needed, morphine 1 mg every 4 hours as needed. Hold off on oral morphine Glycemic control: Insulin sliding scale, glargine 20 units twice daily, lispro 5 units 3 meals. Check A1c. Nutrition: Carb consistent diet CODE STATUS: Full code PUD prophylaxis: Protonix DVT prophylaxis: Heparin drip Discharge planning: Home once medically stable Continue with care at [facility]. This documentation was created by [employer] licensed journeyman electrician software. Every effort was made to ensure accuracy of licensed journeyman electrician. Any obvious errors or omissions should be clarified with the author of the document. Plan for today: Start on gentle IV hydration with normal saline at 50 cc/h. Monitor BMP daily. Continue heparin drip. Will discuss with cardiology for early Cardiac catheterization. Appreciate nephrology recommendations. Insulin 15 units glargine twice daily, sliding scale high-dose protocol, stop 5 units standing AC order Increase Coreg to 6.25 mg twice daily. Continue with aspirin, statin. Out of bed to chair. Hold off on Kayexalate. Attestations Medical Necessity Statement*: Requires further hospitalization for management of non-ST elevation UT in a patient with recent chronic kidney disease secondary to neurogenic bladder causing obstructive uropathy. Time Spent in Patient Care: Greater than 35 minutes Coding Level of Care Code Acute Security Guards Dispatcher for Reji Chandler Diagnoses Respiratory failure with hypoxia J96.91 CHF (congestive heart failure), NYHA class III I50.23 Congestive heart failure type: systolic Congestive heart failure chronicity: acute on chronic Pulmonary edema J81.1 NSTEMI (non-ST elevated myocardial infarction) I21.4 CAD (coronary artery disease) I25.10 CKD (chronic kidney disease) N18.9 Neurogenic bladder N31.9 Type 1 diabetes mellitus E10.9 COPD exacerbation J44.1 Diabetic neuropathy associated with type 1 diabetes mellitus E10.42 Diabetes mellitus complication detail: diabetic polyneuropathy Diabetic gastroparesis E11.43; K31.84 Abdominal pain R10.9 Pulmonary hypertension I27.20
--- NOTE | 2022-02-16 14:05 | PC.NURSE ---
Patient's blood glucose was 68, reported to this nurse by aide. By the time this nurse went to check on patient, patient states she was not feeling well and felt like her sugar was low. Sugar was rechecked and was down to 36. Patient was given two cups of orange juice and some pudding and Dr Edgar was notified. Per Dr Edgar D50 amp was administered and Humalog 5 units order was discontinued. Patient's blood sugar was rechecked and was back to within normal limits. Patient reports she feels much better but remains slightly more difficult to arouse.
[2022-02-16 14:42] LABS: Glucose Point of Care 61 mg/dL (70-110)
[2022-02-16] MEDS: pantoprazole DR 40 mg Tablet PO (15:19)
[2022-02-16] MEDS: sodium chloride 0.9% 1,000 ML 50 ML IV (15:19)
[2022-02-16 15:26] LABS: Partial Thromboplastin Time 40.3 SECONDS (23.9-36.7)
[2022-02-16 17:05] LABS: Glucose Point of Care 152 mg/dL (70-110)
[2022-02-16] MEDS: insulin glargine 100 units/1 mL 15 UNIT SUBCUT (17:44)
[2022-02-16] MEDS: heparin 5,000 unit/mL INJ 1 mL IV (17:45)
[2022-02-16 21:09] LABS: Glucose Point of Care 393 mg/dL (70-110)
[2022-02-16 21:39] LABS: Partial Thromboplastin Time 127.7 SECONDS (23.9-36.7)
[2022-02-16] MEDS: tamsulosin 0.4 mg Capsule PO (21:49)
[2022-02-16] MEDS: atorvastatin 40 mg Tablet 20 MG PO (21:49)
[2022-02-16] MEDS: diphenhydrAMINE 25 mg Capsule PO (21:49)
[2022-02-17] VITALS (11 sets, daily range): BP systolic 120–144; BP diastolic 68–90; PULSE 76–88; RESP 12–18; TEMP 36.6–37.3; O2SAT 95–100
[2022-02-17] MEDS: heparin drip 25,000 UNIT/500 ML PREMIX 19 UNIT IV (03:02)
[2022-02-17] MEDS: nitroglycerin 1 gm/inch oint Pkt 1 INCH TOPICAL ×4 (03:03→20:57)
[2022-02-17 04:01] LABS: Basophils % 0.1 %; Eosinophils % 0.1 %; Hematocrit 31.7 % (37.0-47.0); Hemoglobin 9.9 g/dL (11.5-15.3); Lymphocytes # 2.5 10^3/uL (0.8-4.8); Lymphocytes % 21.1 %; Mean Corpuscular HGB Conc 31.2 g/dL (30.0-36.0); Mean Corpuscular Volume 86.6 fl (81-99); Mean Platelet Volume 10.6 fL (7.4-10.4); Monocytes # 0.8 10^3/uL (0.2-0.9); Monocytes % 6.6 %; Neutrophils # 8.44 10^3/uL (1.8-7.7); Neutrophils % 71.8 %; Nucleated Red Blood Cells % 0 %; Platelet Count 294 10^3/cmm (130-400); Red Blood Count 3.66 10^6/uL (4.1-5.3); Red Cell Distribution Width 16.4 % (12.1-15.1); White Blood Count 11.8 10^3/uL (4.0-10.0)
[2022-02-17 04:19] LABS: Alanine Aminotransferase 16 U/L (0-33); Albumin Level 2.9 g/dL (3.5-5.2); Alkaline Phosphatase 94 U/L (35-105); Anion Gap 16.3 (5-19); Aspartate Amino Transferase 14 U/L (0-32); Blood Urea Nitrogen 68 mg/dL (6-20); Calcium 8.2 mg/dL (8.5-10.5); Carbon Dioxide 28 mmol/L (22-29); Chloride 99 mmol/L (98-107); Globulin 2.7 g/dL (1.3-4.6); Glomerular Filtration Rate 28.4 mL/min (90-130); Glucose 302 mg/dL (65-115); Osmolality Calculated 319 mOsm/kg (285-295); Potassium 4.3 mmol/L (3.5-5.1); Sodium 139 mmol/L (136-145); Total Bilirubin 0.2 mg/dL (0.15-1.2); Total Protein 5.6 g/dL (6.6-8.7)
[2022-02-17 04:22] LABS: Partial Thromboplastin Time 51.6 SECONDS (23.9-36.7)
[2022-02-17 04:44] LABS: Magnesium 1.6 mg/dL (1.7-2.3)
[2022-02-17 04:45] LABS: Calcium 8.6 mg/dL (8.5-10.5)
[2022-02-17 04:47] LABS: Ferritin 353 ng/mL (15-150); Iron 110 ug/dL (37-145); Percent Saturation 61.4 % (20-50); Phosphorus 4.7 mg/dL (2.5-4.5); Total Iron Binding Capacity 179 mcg/dl; Unsaturated Iron Binding 69 ug/dL (112-347)
[2022-02-17] MEDS: heparin 5,000 unit/mL INJ 1 mL IV (04:50)
[2022-02-17 05:03] LABS: 25 Hydroxy Vitamin D 13 ng/mL (30-100)
[2022-02-17] MEDS: lactated ringers 1,000 ML 100 ML IV (06:01)
[2022-02-17 06:15] LABS: Glucose Point of Care 283 mg/dL (70-110)
[2022-02-17] MEDS: ipratropium-albuterol 3 mL Neb INHALATION ×4 (07:23→20:00)
[2022-02-17] MEDS: budesonide 0.5 mg/2 mL Neb INHALATION ×2 (07:23→20:00)
--- NOTE | 2022-02-17 07:50 | P.PN_ITS ---
Subjective Subjective: This is a young woman with a extraordinarily long list of medical problems given her young age. She was admitted on the now 7 days ago with shortness of breath. She is thought to have mild congestive heart failure and a COPD exacerbation. Upon her admission her echo revealed an ejection fraction of 40 to 45%. There was a suggestion of wall motion disturbances. She also had an elevated creatinine which peaked at 2.8. Nephrology has seen her. Her creatinine is 2.0 today. Her troponins were above 300. The peak troponin was 365. She remains on a heparin drip. She also has Nitropaste in place. She is being considered for coronary angiography. She has an extraordinarily long list of other medical problems including diabetes, intravenous drug abuse, methamphetamine abuse, a left lobectomy for cavitary lesion, sepsis, urinary tract infections, COPD, COVID infection, hypertension, history of pelvic inflammatory disease among several others. This morning she is comfortable. No chest pain. To my knowledge she has not had a stress test. Angiography has not been done primarily because of her elevated creatinine. Vitals/I&O/Wt Last Vital Signs Temp 97.9 F 02/17/22 07:46 Pulse 76 02/17/22 07:46 Resp 16 02/17/22 07:46 BP 134/79 02/17/22 07:46 Pulse Ox 100 02/17/22 07:46 O2 Del Method 02/17/22 07:46 O2 Flow Rate 2 02/17/22 07:22 02/16/22 02/17/22 02/17/22 22:59 06:59 14:59 Intake Total 1599.867 / 3918.164 4754.584 / 3454.451 Output Total 1250 / 1250 550 / 1800 Balance 349.867 / 286.628 2370.584 / 1654.451 Physical Exam Narrative: GENERAL: resting comfortably HEENT: Exam within normal limits. NECK: Supple without jugular vein distention. The carotid upstroke is normal without bruits. BACK: Exam normal. LUNGS: Clear. HEART: Regular rate and rhythm. ABDOMEN: Benign without organomegaly or tenderness. EXTREMITIES: No edema. NEUROLOGIC: Exam normal. SKIN: Unremarkable. Urinary Catheter Management: Sanders: Cath Placed During This Visit: yes Reason for Continuing Indwelling Catheter: Other Urinary Catheter Date of Insertion: 02/12/22 Urinary Catheter Time of Insertion: 15:50 Data : 02/17/22 03:47 02/17/22 03:47 A&P Assessment and plan (1) ERICA (acute kidney injury): Status: Acute (2) CHF (congestive heart failure), NYHA class III: Status: Acute Qualifiers: Congestive heart failure type: systolic Congestive heart failure chronicity: acute on chronic Qualified Code(s): I50.23 - Acute on chronic systolic (congestive) heart failure (3) Pulmonary hypertension: Status: Acute (4) Type 1 diabetes mellitus: Status: Acute (5) Long-term insulin use: Status: Acute (6) Diabetic neuropathy associated with type 1 diabetes mellitus: Status: Chronic Qualifiers: Diabetes mellitus complication detail: diabetic polyneuropathy Qualified Code(s): E10.42 - Type 1 diabetes mellitus with diabetic polyneuro concepción (7) Respiratory failure: Status: Acute (8) Pulmonary edema: Status: Acute (9) Transaminitis: Status: Acute (10) Hyperlipidemia: Status: Acute (11) Headache, common migraine, intractable, with status migrainosus: Status: Acute Plan I am not comfortable proceeding with angiography with her creatinine still at 2. I think she is at fairly high risk for contrast-induced nephropathy. I would also like to see a stress test prior to proceeding with angiography. I think we need to stratify her risk and have a good reason to perform angiography. Therefore, I am going to let her eat today and we will see how things go. She is very young but I recognize she does have diabetes and she has developed heart disease. I am not certain that the echo revealed wall motion disturbances. Attestations Medical Necessity Statement*: Continued hospitalization for management of multiple medical problems. Coding Level of Care Code Established Pt Acute Zigzag Appliquer for Chg Fwd Patient Type Established History Detailed Exam Detailed Medical Decision Making Moderate Complexity Diagnoses ERICA (acute kidney injury) N17.9 CHF (congestive heart failure), NYHA class III I50.23 Congestive heart failure type: systolic Congestive heart failure chronicity: acute on chronic Pulmonary hypertension I27.20 Type 1 diabetes mellitus E10.9 Long-term insulin use Z79.4 Diabetic neuropathy associated with type 1 diabetes mellitus E10.42 Diabetes mellitus complication detail: diabetic polyneuropathy Respiratory failure J96.90 Pulmonary edema J81.1 Transaminitis R74.01 Hyperlipidemia E78.5 Headache, common migraine, intractable, with status migrainosus G43.011
--- NOTE | 2022-02-17 08:23 | P.PN_ITS ---
Subjective Subjective: c/o back pain. no cp. no n/v/f/c/benavides/d/sob Medications: Reviewed: Yes Medication Review Details: Current Medications Acetaminophen (Acetaminophen 325 Mg Tablet) 650 mg PO Q6H PRN PRN Reason: Mild/Mod Pain Or Temp >/= 101 Albuterol/Ipratropium (Ipratropium-Albuterol 3 Ml Neb) 3 ml INHALATION QID.RESPIRATORY SHAY Last Admin: 02/17/22 07:23 Dose: 3 ml Aspirin (Aspirin 81 Mg Ec Tablet) 81 mg PO DAILY SHAY Last Admin: 02/16/22 10:23 Dose: 81 mg Atorvastatin Calcium (Atorvastatin 40 Mg Tablet) 20 mg PO BEDTIME SHAY Last Admin: 02/16/22 21:49 Dose: 20 mg Azithromycin (Azithromycin 250 Mg Tablet) 500 mg PO DAILY SHAY; Protocol Last Admin: 02/16/22 10:23 Dose: 500 mg Budesonide (Budesonide 0.5 Mg/2 Ml Neb) 0.5 mg INHALATION BID.RESPIRATORY SHAY Last Admin: 02/17/22 07:23 Dose: 0.5 mg Carvedilol (Carvedilol 6.25 Mg Tablet) 6.25 mg PO BID SHAY Last Admin: 02/16/22 17:44 Dose: 6.25 mg Dextrose (Dextrose 50% Syringe 50 Ml) 25 ml IVP ONCE PRN; Protocol PRN Reason: hypoglycemia protocol Diphenhydramine HCl (Diphenhydramine 25 Mg Capsule) 25 mg PO BEDTIME SHAY Last Admin: 02/16/22 21:49 Dose: 25 mg Gabapentin (Gabapentin 100 Mg Capsule) 100 mg PO TID SHAY Last Admin: 02/16/22 21:49 Dose: 100 mg Glucagon (Glucagon 1 Mg/Ml Inj 1 Ml) 1 mg IM ONCE PRN; Protocol PRN Reason: Adult Acute Hypoglycemia Prot. Heparin Sodium (Porcine) (Heparin 5,000 Unit/Ml Inj 1 Ml) 0 unit IV PRN PRN; Protocol PRN Reason: Heparin weight-base protocol Last Admin: 02/17/22 04:50 Dose: 1,200 unit Dextrose (D5w) 500 mls @ 100 mls/hr IV ONCE PRN; Protocol PRN Reason: Adult Acute Hypoglycemia Prot Heparin Sodium/Sodium Chloride (Heparin Drip) 25,000 unit in 500 mls @ 0 mls/hr IV .Q0M SHAY; Protocol Last Titration: 02/17/22 04:51 Dose: 16.96 unit/kg/hr, 20 mls/hr Lactated Ringer's (Lactated Ringers) 1,000 mls @ 75 mls/hr IV .[id number] [facility] Last Admin: 02/17/22 06:01 Dose: 100 mls/hr Insulin Glargine (Insulin Glargine 100 Units/1 Ml) 15 unit SUBCUT BID [facility] Last Admin: 02/16/22 17:44 Dose: 15 unit Insulin Human Lispro (Insulin Lispro 100 Unit/1 Ml) 0 unit SUBCUT WM&BEDTIME [facility]; Protocol Last Admin: 02/16/22 21:56 Dose: 7 unit Magnesium Oxide (Magnesium Oxide 400 Mg Tablet) 400 mg PO BID [facility] Last Admin: 02/16/22 17:44 Dose: 400 mg Multivitamins (Q-Swvnori-Odgdrig C Tablet) 1 each PO DAILY [facility] Last Admin: 02/16/22 10:24 Dose: 1 each Nitroglycerin (Nitroglycerin 0.4 Mg Sublingual Tablet) 0.4 mg SUBLINGUAL Q5M PRN PRN Reason: CHEST PAIN Nitroglycerin (Nitroglycerin 1 Gm/Inch Oint Pkt) 1 inch TOPICAL Q6H [facility] Last Admin: 02/17/22 03:03 Dose: 1 inch Ondansetron HCl (Ondansetron 2 Mg/Ml Sdv 2 Ml) 4 mg IVP Q8H PRN PRN Reason: vomiting, or N/V if npo Last Admin: 02/11/22 08:36 Dose: 4 mg Pantoprazole Sodium (Pantoprazole Dr 40 Mg Tablet) 40 mg PO DAILY@12 [facility] Last Admin: 02/16/22 15:19 Dose: 40 mg Prednisone (Prednisone 20 Mg Tablet) 40 mg PO DAILY [facility] Stop: 02/18/22 08:59 Last Admin: 02/16/22 10:24 Dose: 40 mg Tamsulosin HCl (Tamsulosin 0.4 Mg Capsule) 0.4 mg PO BEDTIME [facility] Last Admin: 02/16/22 21:49 Dose: 0.4 mg Vitals/I&O/Wt Last Vital Signs Temp 97.9 F 02/17/22 07:46 Pulse 76 02/17/22 07:46 Resp 16 02/17/22 07:46 BP 134/79 02/17/22 07:46 Pulse Ox 100 02/17/22 07:46 O2 Del Method 02/17/22 07:46 O2 Flow Rate 2 02/17/22 07:22 02/16/22 02/17/22 02/17/22 22:59 06:59 14:59 Intake Total 1599.867 / 9600.194 6358.584 / 3454.451 Output Total 1250 / 1250 550 / 1800 Balance 349.867 / 811.611 6758.584 / 1654.451 Physical Exam Narrative: young lady, comfortable in bed, NARD vs noted- pulse ox 100% heent- nc/at, eomi, anicteric neck supple lungs dull bases heart reg abd soft, nt, nd, + bs ext trace edema neuro- a,a, o x 3 Urinary Catheter Management: Sanders: Cath Placed During This Visit: yes Reason for Continuing Indwelling Catheter: Other Urinary Catheter Date of Insertion: 02/12/22 Urinary Catheter Time of Insertion: 15:50 Data : 02/17/22 03:47 02/17/22 03:47 A&P Assessment and plan (1) ERICA (acute kidney injury): 36 yr old female ex-ivdu, iddm, htn, recent cavitary pna 1. ERICA - improved rt hydronephrosis -repeeat ua protein improved, 3 + blood -high ur na -etiology is likely partial Obstructive uroapthy. -high uop Q septic emboli Q CRS -send serologies - Q infection related -cr stable 2. DM control per PMD hgb a1c of 10.3 3. CAD- for cardiac cath. inc renal risk w/ cath- however, pt at high cardiac risk. recommend ivf and cath when stable- would start ivf 6-12 hrs pre-cath 4. replace magnesium 5. hyperkalemia improved 6. bp controlled 7. anemia- check iron studies- hgb improving 8. replace vit d pth 123- recheck in 4 weeks seen and examined w/ RN- telehealth visit time spent 30 min discussed w/ pt and RN Status: Acute Plan see above Attestations Medical Necessity Statement*: erica, chf, sob, +cp Time Spent in Patient Care: 16 - 35 minutes (>than 50% of time spent in counselling and/or direct pt care on unit) . Coding Level of Care Code Acute Child Day Care Teacher for Chg Fwd Diagnoses ERICA (acute kidney injury) N17.9
[2022-02-17 08:35] LABS: Glucose Point of Care 162 mg/dL (70-110)
[2022-02-17] MEDS: carvedilol 6.25 mg Tablet PO ×2 (09:14→17:21)
[2022-02-17] MEDS: b-complex-vitamin c Tablet 1 EACH PO (09:14)
[2022-02-17] MEDS: gabapentin 100 mg Capsule PO ×3 (09:14→20:56)
[2022-02-17] MEDS: magnesium oxide 400 mg tablet PO ×2 (09:14→17:21)
[2022-02-17] MEDS: aspirin 81 mg EC Tablet PO (09:14)
[2022-02-17] MEDS: predniSONE 20 mg Tablet 40 MG PO (09:15)
[2022-02-17] MEDS: insulin glargine 100 units/1 mL 15 UNIT SUBCUT ×2 (09:15→17:21)
[2022-02-17] MEDS: insulin lispro 100 unit/1 mL SUBCUT ×3 (09:17→22:15)
[2022-02-17] MEDS: ergocalciferol (vitamin D2) 50,000 Unit Capsule 50000 UNIT PO (09:24)
[2022-02-17] MEDS: azithromycin 250 mg Tablet 500 MG PO (09:24)
[2022-02-17 11:22] LABS: Partial Thromboplastin Time 62.5 SECONDS (23.9-36.7)
[2022-02-17 11:27] LABS: Ferritin 345 ng/mL (15-150); Iron 100 ug/dL (37-145); Percent Saturation 57.4 % (20-50); Total Iron Binding Capacity 174 mcg/dl; Unsaturated Iron Binding 74 ug/dL (112-347)
[2022-02-17 12:31] LABS: Glucose Point of Care 158 mg/dL (70-110)
--- NOTE | 2022-02-17 12:53 | P.PN_ITS ---
Subjective Subjective: No events overnight. Patient has remained hemodynamically stable and afebrile. No further chest pain. Continue on heparin drip. Overnight was placed on 1-1/2 L of oxygen. Turned down to room air today saturating more than 96%. Patient complaining of mild back pain. Agreeable for tramadol. Medications: Reviewed: Yes Vitals/I&O/Wt Last Vital Signs Temp 98.0 F 02/17/22 11:31 Pulse 82 02/17/22 11:31 Resp 16 02/17/22 11:31 BP 143/90 02/17/22 11:31 Pulse Ox 96 02/17/22 11:31 O2 Del Method 02/17/22 11:31 O2 Flow Rate 2 02/17/22 07:22 02/16/22 02/17/22 02/17/22 22:59 06:59 14:59 Intake Total 1599.867 / 3610.928 8671.584 / 3454.451 240 / 240 Output Total 1250 / 1250 550 / 1800 Balance 349.867 / 701.098 3593.584 / 1654.451 240 / 240 Physical Exam Narrative: AOx3, no acute distress, pallor present chronically ill-appearing. Heart regular normal S1-S2, soft pansystolic murmur at apex Lungs diffuse crackles bilateral bases with rhonchi heard in the left upper posterior lung abdomen soft nontender nondistended positive bowel sounds Extremities +2 pitting edema to knees. Urinary Catheter Management: Sanders: Cath Placed During This Visit: yes Reason for Continuing Indwelling Catheter: Other Urinary Catheter Date of Insertion: 02/12/22 Urinary Catheter Time of Insertion: 15:50 Data : 02/17/22 03:47 02/17/22 03:47 A&P Assessment and plan (1) NSTEMI (non-ST elevated myocardial infarction): Baseline troponin overnight over 300 with nonsignificant delta. No further chest pain. Continue with heparin drip. Appreciate cardiology recommendations. Seen by intervention cardiology today. As per Dr. Gallegos patient does not warrant cardiac angiogram without further re stratification and evaluation with a Lexiscan. No new regional wall motion abnormality on echocardiogram. Plan for Lexiscan stress test on Saturday. N.p.o. Saturday midnight. Patient agreeable with same. Nitropatch 1 inch every 6 hourly for now. Goal blood pressure less than 140/90 mmHg. Coreg 6.25 mg twice daily. Continue with aspirin 81, statin. Status: Acute (2) CAD (coronary artery disease): Significant regional wall motion abnormality on echocardiogram. Treatment as above. Status: Acute (3) CKD (chronic kidney disease): Creatinine since earlier in January more than 2. On review of chart in 2020 was normal to 1.1. Robust urine output in last 24 hours since placement of Sanders catheterization. High concerns for distal obstructive uropathy because of neurogenic bladder. Hydronephrosis on the right side has resolved on repeat ultrasound from today. Hyperkalemia resolved. Robust urine output. Hold off on Kayexalate for now. Repeat BMP daily. Most likely patient will need to be discharged on Sanders catheter with follow-up with Dr. Rubio as an outpatient. Continue Flomax 0.4 daily. Nephrotic syndrome ruled out on previous admission from 24-hour protein evaluation. Appreciate nephrology recommendations. Continue gentle IV hydration. Plan for equal ins and out in 24 hours. Status: Inactive (4) Respiratory failure with hypoxia: Resolved now. On admission patient was found to have hypoxia with use of accessory muscle. Most likely secondary to congestive heart failure along with mild COPD exacerbation. Less likely from pneumonia. Patient was recently at an outside hospital where she was treated for lung abscess. Also has recent history of COVID-19. VQ scan low probability for PE. Status: Acute (5) CHF (congestive heart failure), NYHA class III: Repeat limited echocardiogram done shows an EF of 40 to 45% with persistent hypokinesia in mid to apical anterior and anterolateral wall, mild to moderate MR, mild TR, PASP of 61 mmHg. Well compensated for now. Status: Acute Qualifiers: Congestive heart failure type: systolic Congestive heart failure c hronicity: acute on chronic Qualified Code(s): I50.23 - Acute on chronic systolic (congestive) heart failure (6) Pulmonary edema: Hold off on any further Lasix for diuresis for now. Patient overall 6 L negative now since admission. For possible COPD exacerbation: Seems to have resolved. Stopped steroids. Pulmicort twice daily, DuoNebs 4 times daily. Oxygen supplementation keeping saturation over 90%. Status: Acute (7) Type 1 diabetes mellitus: Uncontrolled blood sugars. With recurrent hypoglycemia. Hemoglobin A1c was just over 10. At home patient takes 15 units of Lantus twice daily along with sliding scale. States even at home she has episodes of hypoglycemia with sugars dropping below 60 at least twice a week. Most of the sugars are more than 200. Continue with Lantus 15 units twice daily, sliding scale at moderate dose protocol. Most likely patient will need to follow-up with endocrinology as an outpatient for evaluation of insulin pump given her renal dysfunction and erratic eating. Status: Acute (8) Neurogenic bladder: Sanders catheterization. Continue with Flomax. Status: Acute (9) COPD exacerbation: Treatment as above. Stop Abx. Status: Acute (10) Diabetic neuropathy associated with type 1 diabetes mellitus: Status: Chronic Qualifiers: Diabetes mellitus complication detail: diabetic polyneuropathy Qualified Code(s): E10.42 - Type 1 diabetes mellitus with diabetic polyneuropathy (11) Diabetic gastroparesis: As above Reglan 4 times daily. Status: Acute (12) Abdominal pain: Patient has been seen here recently for abdominal pain placed on Pepcid, Pepto- Bismol, Maalox as needed. Will prescribe Mylanta as needed give a dose now. After reviewing past medical history it is likely patient has gastroparesis. Restarted Reglan. Status: Inactive (13) Pulmonary hypertension: Status: Acute Plan Analgesia: Tylenol as needed, morphine 1 mg every 4 hours as needed. Hold off o n oral morphine Glycemic control: Insulin sliding scale, glargine 20 units twice daily, lispro 5 units 3 meals. Check A1c. Nutrition: Carb consistent diet CODE STATUS: Full code PUD prophylaxis: Protonix DVT prophylaxis: Heparin drip Discharge planning: Home once medically stable Continue with care at [facility]. This documentation was created by [employer] spinning room worker software. Every effort w as made to ensure accuracy of spinning room worker. Any obvious errors or omissions should be clarified with the author of the document. Attestations Medical Necessity Statement*: Requires further hospitalization further evaluation and management of non-ST elevation ME, CKD secondary to neurogenic bladder, type 1 diabetes mellitus Time Spent in Patient Care: Greater than 35 minutes Coding Level of Care Code Acute Commissioned Sales Associate for Chg Fwd Diagnoses NSTEMI (non-ST elevated myocardial infarction) I21.4 CAD (coronary artery disease) I25.10 CKD (chronic kidney disease) N18.9 Respiratory failure with hypoxia J96.91 CHF (congestive heart failure), NYHA class III I50.23 Congestive heart failure type: systolic Congestive heart failure chronicity: acute on chronic Pulmonary edema J81.1 Type 1 diabetes mellitus E10.9 Neurogenic bladder N31.9 COPD exacerbation J44.1 Diabetic neuropathy associated with type 1 diabetes mellitus E10.42 Diabetes mellitus complication detail: diabetic polyneuropathy Diabetic gastroparesis E11.43; K31.84 Abdominal pain R10.9 Pulmonary hypertension I27.20
[2022-02-17 17:03] LABS: Glucose Point of Care 418 mg/dL (70-110)
[2022-02-17] MEDS: pantoprazole DR 40 mg Tablet PO (17:21)
[2022-02-17] MEDS: TRAMadol 50 mg Tablet PO (17:59)
[2022-02-17 18:55] LABS: Partial Thromboplastin Time > 250.0 SECONDS (23.9-36.7)
[2022-02-17 20:07] LABS: Partial Thromboplastin Time 59.8 SECONDS (23.9-36.7)
[2022-02-17] MEDS: diphenhydrAMINE 25 mg Capsule PO (20:56)
[2022-02-17] MEDS: tamsulosin 0.4 mg Capsule PO (20:56)
[2022-02-17] MEDS: atorvastatin 40 mg Tablet 20 MG PO (20:56)
[2022-02-17 22:02] LABS: Glucose Point of Care 218 mg/dL (70-110)
[2022-02-18] VITALS (12 sets, daily range): BP systolic 111–128; BP diastolic 72–82; PULSE 71–83; RESP 12–17; TEMP 36.7–36.9; O2SAT 96–100
[2022-02-18 01:31] LABS: Platelet Count 283 10^3/cmm (130-400)
[2022-02-18 01:35] LABS: Partial Thromboplastin Time 60.7 SECONDS (23.9-36.7)
[2022-02-18 01:41] LABS: Alanine Aminotransferase 17 U/L (0-33); Albumin Level 2.9 g/dL (3.5-5.2); Alkaline Phosphatase 88 U/L (35-105); Anion Gap 15.4 (5-19); Aspartate Amino Transferase 14 U/L (0-32); Blood Urea Nitrogen 64 mg/dL (6-20); Calcium 8.4 mg/dL (8.5-10.5); Carbon Dioxide 27 mmol/L (22-29); Chloride 104 mmol/L (98-107); Globulin 2.5 g/dL (1.3-4.6); Glomerular Filtration Rate 30.1 mL/min (90-130); Glucose 114 mg/dL (65-115); Magnesium 1.6 mg/dL (1.7-2.3); Osmolality Calculated 313 mOsm/kg (285-295); Phosphorus 3.5 mg/dL (2.5-4.5); Potassium 4.4 mmol/L (3.5-5.1); Sodium 142 mmol/L (136-145); Total Bilirubin 0.2 mg/dL (0.15-1.2); Total Protein 5.4 g/dL (6.6-8.7)
[2022-02-18] MEDS: heparin drip 25,000 UNIT/500 ML PREMIX 20 UNIT IV (03:42)
[2022-02-18] MEDS: nitroglycerin 1 gm/inch oint Pkt 1 INCH TOPICAL (03:43)
[2022-02-18] MEDS: TRAMadol 50 mg Tablet PO (03:52)
[2022-02-18 06:18] LABS: Glucose Point of Care 117 mg/dL (70-110)
--- NOTE | 2022-02-18 06:28 | PM.PN ---
Subjective Subjective: back pain. no n/v/f/c/benavides/d/sob/cp Medications: Reviewed: Yes Medication Review Details: Current Medications Acetaminophen (Acetaminophen 325 Mg Tablet) 650 mg PO Q6H PRN PRN Reason: Mild/Mod Pain Or Temp >/= 101 Albuterol/Ipratropium (Ipratropium-Albuterol 3 Ml Neb) 3 ml INHALATION QID.RESPIRATORY [facility] Last Admin: 02/17/22 20:00 Dose: 3 ml Aspirin (Aspirin 81 Mg Ec Tablet) 81 mg PO DAILY [facility] Last Admin: 02/17/22 09:14 Dose: 81 mg Atorvastatin Calcium (Atorvastatin 40 Mg Tablet) 20 mg PO BEDTIME [facility] Last Admin: 02/17/22 20:56 Dose: 20 mg Budesonide (Budesonide 0.5 Mg/2 Ml Neb) 0.5 mg INHALATION BID.RESPIRATORY SHAY Last Admin: 02/17/22 20:00 Dose: 0.5 mg Carvedilol (Carvedilol 6.25 Mg Tablet) 6.25 mg PO BID [facility] Last Admin: 02/17/22 17:21 Dose: 6.25 mg Dextrose (Dextrose 50% Syringe 50 Ml) 25 ml IVP ONCE PRN; Protocol PRN Reason: hypoglycemia protocol Diphenhydramine HCl (Diphenhydramine 25 Mg Capsule) 25 mg PO BEDTIME [facility] Last Admin: 02/17/22 20:56 Dose: 25 mg Ergocalciferol (Ergocalciferol (Vitamin D2) 50,000 Unit Capsule) 50,000 unit PO Q7D [facility] Last Admin: 02/17/22 09:24 Dose: 50,000 unit Gabapentin (Gabapentin 100 Mg Capsule) 100 mg PO TID [facility] Last Admin: 02/17/22 20:56 Dose: 100 mg Glucagon (Glucagon 1 Mg/Ml Inj 1 Ml) 1 mg IM ONCE PRN; Protocol PRN Reason: Adult Acute Hypoglycemia Prot. Heparin Sodium (Porcine) (Heparin 5,000 Unit/Ml Inj 1 Ml) 0 unit IV PRN PRN; Protocol PRN Reason: Heparin weight-base protocol Last Admin: 02/17/22 04:50 Dose: 1,200 unit Dextrose (D5w) 500 mls @ 100 mls/hr IV ONCE PRN; Protocol PRN Reason: Adult Acute Hypoglycemia Prot Heparin Sodium/Sodium Chloride (Heparin Drip) 25,000 unit in 500 mls @ 0 mls/hr IV .Q0M [facility]; Protocol Last Admin: 02/18/22 03:42 Dose: 16.96 unit/kg/hr, 20 mls/hr Insulin Glargine (Insulin Glargine 100 Units/1 Ml) 15 unit SUBCUT BID [facility] Last Admin: 02/17/22 17:21 Dose: 15 unit Insulin Human Lispro (Insulin Lispro 100 Unit/1 Ml) 0 unit SUBCUT WM&BEDTIME [facility]; Protocol Last Admin: 02/17/22 22:15 Dose: 3 unit Magnesium Oxide (Magnesium Oxide 400 Mg Tablet) 400 mg PO BID [facility] Last Admin: 02/17/22 17:21 Dose: 400 mg Multivitamins (L-Myvjhzr-Ryytojf C Tablet) 1 each PO DAILY [facility] Last Admin: 02/17/22 09:14 Dose: 1 each Nitroglycerin (Nitroglycerin 0.4 Mg Sublingual Tablet) 0.4 mg SUBLINGUAL Q5M PRN PRN Reason: CHEST PAIN Nitroglycerin (Nitroglycerin 1 Gm/Inch Oint Pkt) 1 inch TOPICAL Q6H [facility] Last Admin: 02/18/22 03:43 Dose: 1 inch Ondansetron HCl (Ondansetron 2 Mg/Ml Sdv 2 Ml) 4 mg IVP Q8H PRN PRN Reason: vomiting, or N/V if npo Last Admin: 02/11/22 08:36 Dose: 4 mg Pantoprazole Sodium (Pantoprazole Dr 40 Mg Tablet) 40 mg PO DAILY@12 [facility] Last Admin: 02/17/22 17:21 Dose: 40 mg Tamsulosin HCl (Tamsulosin 0.4 Mg Capsule) 0.4 mg PO BEDTIME [facility] Last Admin: 02/17/22 20:56 Dose: 0.4 mg Tramadol HCl (Tramadol 50 Mg Tablet) 50 mg PO Q6H PRN PRN Reason: MODERATE PAIN Last Admin: 02/18/22 03:52 Dose: 50 mg Vitals/I&O/Wt Last Vital Signs Temp 98.4 F 02/18/22 04:00 Pulse 71 02/18/22 04:00 Resp 12 02/18/22 04:00 BP 120/75 02/18/22 04:00 Pulse Ox 96 02/18/22 04:00 O2 Del Method 02/18/22 04:00 O2 Flow Rate 2 08/27/22 07:22 02/17/22 02/17/22 02/18/22 14:59 22:59 06:59 Intake Total 600 / 600 480 / 1080 697 / 1777 Output Total 1300 / 1300 750 / 2050 Balance 600 / 600 -820 / -220 -53 / -273 Physical Exam Narrative: young lady, comfortable in bed, NARD vs noted- pulse ox 100% heent- nc/at, eomi, anicteric neck supple lungs -clear b/l heart reg abd soft, nt, nd, + bs ext trace edema neuro- a,a, o x 3 Urinary Catheter Management: Sanders: Cath Placed During This Visit: yes Reason for Continuing Indwelling Catheter: Acute Urinary Retention or Obstruction Urinary Catheter Date of Insertion: 02/12/22 Urinary Catheter Time of Insertion: 15:50 Data : 02/18/22 01:11 02/18/22 01:11 A&P Assessment and plan (1) ERICA (acute kidney injury): 36 yr old female ex-ivdu, iddm, htn, recent cavitary pna 1. ERICA - improved rt hydronephrosis -repeeat ua protein improved, 3 + blood -high ur na -etiology is likely partial Obstructive uroapthy. -high uop Q septic emboli Q CRS -send serologies - Q infection related -cr stable 2. DM control per PMD hgb a1c of 10.3 3. CAD- for cardiac cath. inc renal risk w/ cath- however, pt at high cardiac risk. if needss a cardiac cath, then we recommend ivf at 60 ml/hr starting at midnight before cardiac cath 4. hyperkalemia improved 5. bp controlled 6. anemia- high iron sat- hgb improving- consider epogen 7. replace vit d pth 123- recheck in 4 weeks seen and examined w/ RN- telehealth visit time spent 25 min discussed w/ pt and RN Status: Acute Plan see above Attestations Medical Necessity Statement*: per medicine Time Spent in Patient Care: 16 - 35 minutes (>than 50% of time spent in counselling and/or direct pt care on unit). Coding Level of Care Code Acute Chucking And Boring Machine Operator for Chg Fwd Diagnoses ERICA (acute kidney injury) N17.9
--- NOTE | 2022-02-18 07:54 | PM.PN ---
Subjective Subjective: Donita is asleep this morning. She is not having any difficulties. She is not any chest pain now for about 48 hours. Her creatinine is about the same. She is 1.9 today. She was 2.0 yesterday. I put the angiogram on hold because of the renal insufficiency. Otherwise, she has no complaints. Vitals/I&O/Wt Last Vital Signs Temp 98.4 F 02/18/22 04:00 Pulse 71 02/18/22 04:00 Resp 12 02/18/22 04:00 BP 120/75 02/18/22 04:00 Pulse Ox 96 02/18/22 04:00 O2 Del Method 02/18/22 04:00 O2 Flow Rate 2 02/17/22 07:22 02/17/22 02/18/22 02/18/22 22:59 06:59 14:59 Intake Total 480 / 1080 697 / 1777 Output Total 1300 / 1300 750 / 2050 Balance -820 / -220 -53 / -273 Physical Exam Narrative: GENERAL: Comfortable at rest HEENT: Exam within normal limits. NECK: Supple without jugular vein distention. The carotid upstroke is normal without bruits. BACK: Exam normal. LUNGS: Clear. HEART: Regular rate and rhythm. ABDOMEN: Benign without organomegaly or tenderness. EXTREMITIES: No edema. NEUROLOGIC: Exam normal. SKIN: Unremarkable. Urinary Catheter Management: Sanders: Cath Placed During This Visit: yes Reason for Continuing Indwelling Catheter: Acute Urinary Retention or Obstruction Urinary Catheter Date of Insertion: 02/12/22 Urinary Catheter Time of Insertion: 15:50 Data : 02/18/22 01:11 02/18/22 01:11 A&P Assessment and plan (1) ERICA (acute kidney injury): Status: Acute (2) CHF (congestive heart failure), NYHA class III: Status: Acute Qualifiers: Congestive heart failure type: systolic Congestive heart failure chronicity: acute on chronic Qualified Code(s): I50.23 - Acute on chronic systolic (congestive) heart failure (3) Pulmonary hypertension: Status: Acute (4) Type 1 diabetes mellitus: Status: Acute (5) Diabetic gastroparesis: Status: Acute (6) Transaminitis: Status: Acute (7) Hyperlipidemia: Status: Acute Plan I am going to postpone the angiogram indefinitely. We will get a stress test tomorrow. She is free of chest pain now for 48 hours. This will allow us to risk stratify her and hopefully she will not need an angiogram. I am still concerned about contrast-induced nephropathy. Attestations Medical Necessity Statement*: Hospitalization required for management of heart failure, intravenous drug abuse, elevated troponin. Coding Level of Care Code Established Pt Acute Supervisor Assembly Room for Reji Chandler Patient Type Established History Detailed Exam Detailed Medical Decision Making Moderate Complexity Diagnoses ERICA (acute kidney injury) N17.9 CHF (congestive heart failure), NYHA class III I50.23 Congestive heart failure type: systolic Congestive heart failure chronicity: acute on chronic Pulmonary hypertension I27.20 Type 1 diabetes mellitus E10.9 Diabetic gastroparesis E11.43; K31.84 Transaminitis R74.01 Hyperlipidemia E78.5
[2022-02-18] MEDS: ipratropium-albuterol 3 mL Neb INHALATION ×3 (08:09→19:39)
[2022-02-18] MEDS: budesonide 0.5 mg/2 mL Neb INHALATION ×2 (08:09→19:39)
[2022-02-18] MEDS: pantoprazole DR 40 mg Tablet PO (10:13)
[2022-02-18] MEDS: magnesium oxide 400 mg tablet PO ×2 (10:13→17:14)
[2022-02-18] MEDS: carvedilol 6.25 mg Tablet PO (10:13)
[2022-02-18] MEDS: b-complex-vitamin c Tablet 1 EACH PO (10:13)
[2022-02-18] MEDS: gabapentin 100 mg Capsule PO ×3 (10:13→20:47)
[2022-02-18] MEDS: aspirin 81 mg EC Tablet PO (10:14)
[2022-02-18] MEDS: insulin glargine 100 units/1 mL 15 UNIT SUBCUT ×2 (10:14→17:14)
[2022-02-18 12:10] LABS: Glucose Point of Care 135 mg/dL (70-110)
--- NOTE | 2022-02-18 13:23 | PM.PN ---
Subjective Subjective: Night. Patient remains hemodynamically stable, afebrile. Denies any chest pain or complaints. 2 L of urine output in last 24 hours. Vitals/I&O/Wt Last Vital Signs Temp 98.3 F 02/18/22 12:00 Pulse 77 02/18/22 12:00 Resp 16 02/18/22 12:00 BP 115/72 02/18/22 12:00 Pulse Ox 100 02/18/22 12:00 O2 Del Method 02/18/22 12:00 O2 Flow Rate 2 02/17/22 07:22 02/17/22 02/18/22 02/18/22 22:59 06:59 14:59 Intake Total 480 / 1080 697 / 1777 240 / 240 Output Total 1300 / 1300 750 / 2050 Balance -820 / -220 -53 / -273 240 / 240 Physical Exam Narrative: AOx3, no acute distress, pallor present chronically ill-appearing. Heart regular normal S1-S2, soft pansystolic murmur at apex Lungs diffuse crackles bilateral bases with rhonchi heard in the left upper posterior lung abdomen soft nontender nondistended positive bowel sounds Extremities +2 pitting edema to knees. Urinary Catheter Management: Sanders: Cath Placed During This Visit: yes Reason for Continuing Indwelling Catheter: Acute Urinary Retention or Obstruction Urinary Catheter Date of Insertion: 02/12/22 Urinary Catheter Time of Insertion: 15:50 Data : 02/18/22 01:11 02/18/22 01:11 A&P Assessment and plan (1) NSTEMI (non-ST elevated myocardial infarction): Baseline troponin overnight over 300 with nonsignificant delta. No further chest pain. 100 for more than 4 days. Stop heparin drip. Appreciate cardiology recommendations. Seen by intervention cardiology today. As per Dr. Gallegos patient does not warrant cardiac angiogram without further restratification and evaluation with a Lexiscan. No new regional wall motion abnormality on echocardiogram. Plan for Lexiscan stress test on Saturday. N.p.o. Saturday midnight. Patient agreeable with same. Nitropatch 1 inch every 6 hourly for now. Goal blood pressure less than 140/90 mmHg. Hold Coreg 6.25 mg twice daily for now for Lexiscan in AM. Continue with aspirin 81, statin. Status: Acute (2) CAD (coronary artery disease): Significant regional wall motion abnormality on echocardiogram. Treatment as above. Status: Acute (3) CKD (chronic kidney disease): Creatinine since earlier in January more than 2. On review of chart in 2020 was normal to 1.1. Robust urine output in last 24 hours since placement of Sanders catheterization. High concerns for distal obstructive uropathy because of neurogenic bladder. Hydronephrosis on the right side has resolved on repeat ultrasound from today. Hyperkalemia resolved. Robust urine output. Hold off on Kayexalate for now. Repeat BMP daily. Most likely patient will need to be discharged on Sanders catheter with follow-up with Dr. Rubio as an outpatient. Continue Flomax 0.4 daily. Nephrotic syndrome ruled out on previous admission from 24-hour protein evaluation. Appreciate nephrology recommendations. Continue gentle IV hydration. Plan for equal ins and out in 24 hours. Status: Inactive (4) Respiratory failure with hypoxia: Resolved now. On admission patient was found to have hypoxia with use of accessory muscle. Most likely secondary to congestive heart failure along with mild COPD exacerbation. Less likely from pneumonia. Patient was recently at an outside hospital where she was treated for lung abscess. Also has recent history of COVID-19. VQ scan low probability for PE. Status: Acute (5) CHF (congestive heart failure), NYHA class III: Repeat limited echocardiogram done shows an EF of 40 to 45% with persistent hypokinesia in mid to apical anterior and anterolateral wall, mild to moderate MR, mild TR, PASP of 61 mmHg. Well compensated for now. Status: Acute Qualifiers: Congestive heart failure type: systolic Congestive heart failure chronicity: acute on chronic Qualified Code(s): I50.23 - Acute on chronic systolic (congestive) heart failure (6) Pulmonary edema: Hold off on any further Lasix for diuresis for now. Patient overall 6 L negative now since admission. For possible COPD exacerbation: Seems to have resolved. Stopped steroids. Pulmicort twice daily, DuoNebs 4 times daily. Oxygen supplementation keeping saturation over 90%. Status: Acute (7) Type 1 diabetes mellitus: Uncontrolled blood sugars. With recurrent hypoglycemia. Hemoglobin A1c was just over 10. At home patient takes 15 units of Lantus twice daily along with sliding scale. States even at home she has episodes of hypoglycemia with sugars dropping below 60 at least twice a week. Most of the sugars are more than 200. Continue with Lantus 15 units twice daily, sliding scale at moderate dose protocol. Most likely patient will need to follow-up with endocrinology as an outpatient for evaluation of insulin pump given her renal dysfunction and erratic eating. Status: Acute (8) Neurogenic bladder: Sanders catheterization. Continue with Flomax. Status: Acute (9) COPD exacerbation: Treatment as above. Stop Abx. Status: Acute (10) Diabetic neuropathy associated with type 1 diabetes mellitus: Status: Chronic Qualifiers: Diabetes mellitus complication detail: diabetic polyneuropathy Qualified Code(s): E10.42 - Type 1 diabetes mellitus with diabetic polyneuropathy (11) Diabetic gastroparesis: As above Reglan 4 times daily. Status: Acute (12) Abdominal pain: Patient has been seen here recently for abdominal pain placed on Pepcid, Pepto-Bismol, Maalox as needed. Will prescribe Mylanta as needed give a dose now. After reviewing past medical history it is likely patient has gastroparesis. Restarted Reglan. Status: Inactive (13) Pulmonary hypertension: Status: Acute Plan Analgesia: Tylenol as needed, morphine 1 mg every 4 hours as needed. Hold off on oral morphine Glycemic control: Insulin sliding scale, glargine 20 units twice daily, lispro 5 units 3 meals. Check A1c. Nutrition: Carb consistent diet CODE STATUS: Full code PUD prophylaxis: Protonix DVT prophylaxis: Heparin drip Discharge planning: Home once medically stable Continue with care at [facility]. This documentation was created by [email or web address] regional office coordinator software. Every effort was made to ensure accuracy of regional office coordinator. Any obvious errors or omissions should be clarified with the author of the document. Plan for the day: Continue with current medications. N.p.o. after midnight for Lexiscan in a.m. Stop heparin. Patient has received more than 4 days of heparin drip. Coreg on hold. Monitor urine output and BMP daily for now. Attestations Medical Necessity Statement*: Requires further hospitalization for management of non-ST elevation MS as patient needs Lexiscan stress test in a.m. for risk stratification of angiogram in setting of COPD, type 1 diabetes Time Spent in Patient Care: Greater than 35 minutes Coding Level of Care Code Acute Primer Inserting Machine Adjuster for [facility] Fwd Diagnoses NSTEMI (non-ST elevated myocardial infarction) I21.4 CAD (coronary artery disease) I25.10 CKD (chronic kidney disease) N18.9 Respiratory failure with hypoxia J96.91 CHF (congestive heart failure), NYHA class III I50.23 Congestive heart failure type: systolic Congestive heart failure chronicity: acute on chronic Pulmonary edema J81.1 Type 1 diabetes mellitus E10.9 Neurogenic bladder N31.9 COPD exacerbation J44.1 Diabetic neuropathy associated with type 1 diabetes mellitus E10.42 Diabetes mellitus complication detail: diabetic polyneuropathy Diabetic gastroparesis E11.43; K31.84 Abdominal pain R10.9 Pulmonary hypertension I27.20
[2022-02-18 17:08] LABS: Glucose Point of Care 122 mg/dL (70-110)
[2022-02-18] MEDS: atorvastatin 40 mg Tablet 20 MG PO (20:47)
[2022-02-18] MEDS: diphenhydrAMINE 25 mg Capsule PO (20:47)
[2022-02-18] MEDS: tamsulosin 0.4 mg Capsule PO (20:47)
[2022-02-18 21:30] LABS: Glucose Point of Care 173 mg/dL (70-110)
[2022-02-18] MEDS: insulin lispro 100 unit/1 mL SUBCUT (22:10)
[2022-02-18 23:20] LABS: Potassium, Radom Urine 17 mmol/L; Urine Random Chloride 40 mmol/L; Urine Random Sodium 56 mmol/L
[2022-02-18 23:32] LABS: Bilirubin Urine Neg (Negative); Blood Urine 3+ (Negative); Glucose Urine UA Norm (Normal); Ketones Urine Negative (Negative); Leukocyte Esterase Urine 2+ (Negative); Nitrate Urine Negative (Negative); Protein Urine 1+ (Negative); Urine Appearance Cloudy (CLEAR); Urine Color Straw (Yellow); Urobilinogen Urine Norm (Negative); pH Urine 5 (5-7)
[2022-02-18 23:33] LABS: Bacteria Urine TRACE /hpf; Squamous Epithelial Cell Urine RARE /hpf (0-5); WBC Urine 40-55 /hpf (0-5)
[2022-02-18 23:34] LABS: Add Urine Culture? Yes
[2022-02-19] VITALS (11 sets, daily range): BP systolic 108–125; BP diastolic 68–82; PULSE 76–82; RESP 16–18; TEMP 36.7–36.8; O2SAT 95–100
[2022-02-19] MEDS: TRAMadol 50 mg Tablet PO (00:14)
[2022-02-19 05:55] LABS: Alanine Aminotransferase 44 U/L (0-33); Albumin Level 2.8 g/dL (3.5-5.2); Alkaline Phosphatase 96 U/L (35-105); Anion Gap 13.6 (5-19); Aspartate Amino Transferase 38 U/L (0-32); Blood Urea Nitrogen 59 mg/dL (6-20); Calcium 8.5 mg/dL (8.5-10.5); Carbon Dioxide 27 mmol/L (22-29); Chloride 107 mmol/L (98-107); Globulin 2.7 g/dL (1.3-4.6); Glomerular Filtration Rate 30.1 mL/min (90-130); Glucose 66 mg/dL (65-115); Magnesium 1.9 mg/dL (1.7-2.3); Osmolality Calculated 311 mOsm/kg (285-295); Phosphorus 4.4 mg/dL (2.5-4.5); Potassium 4.6 mmol/L (3.5-5.1); Sodium 143 mmol/L (136-145); Total Bilirubin 0.2 mg/dL (0.15-1.2); Total Protein 5.5 g/dL (6.6-8.7)
--- NOTE | 2022-02-19 06:30 | ECG_ITS ---
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 Interpretive Statements NAME OF STUDY: LEXISCAN SESTAMIBI STRESS TEST INDICATION: NSTEMI PROCEDURE: At the baseline, the blood pressure was 110/70 mmHg, oxygen saturation 98% with a heart rate of 71 bpm. The electrocardiogram showed normal sinus rhythm, normal axis, possible old anteroseptal infarct. Nonspecific T wave inversion in lateral leads. The Lexiscan was infused over a period of 20 seconds. A total of 0.4 milligrams of Lexiscan was infused. The stress phase was continued for a total of 5 minutes. Heart rate at the end of the stress phase was 80 bpm, oxygen saturation 98% with a blood pressure of 117/68 mmHg. The EKG at the peak infusion revealed sinus rhythm with no significant ST-T wave changes. The study was terminated due to protocol completion. Sestamibi was injected 20 seconds after the Lexiscan infusion. Blood pressure at the end of the recovery phase was 115/69 mmHg, oxygen saturation 97% with a heart rate of 79 beats per minute. CONCLUSION: 1. No significant EKG changes with the LexiScan infusion. 2. No LexiScan induced chest pain or cardiac arrhythmia. 3. Normal blood pressure and heart rate response. 4. Sestamibi/sestamibi perfusion scan pending; see separate report. Electronically Signed On 02-20-2022 12:50:39 CDT by Maame Montero M.D. [id number]
--- NOTE | 2022-02-19 06:33 | P.PN_ITS ---
Subjective Subjective: no sob or cp or benavides or diarrhea or weakness. for stress test today. Medications: Reviewed: Yes Medication Review Details: Current Medications Acetaminophen (Acetaminophen 325 Mg Tablet) 650 mg PO Q6H PRN PRN Reason: Mild/Mod Pain Or Temp >/= 101 Albuterol/Ipratropium (Ipratropium-Albuterol 3 Ml Neb) 3 ml INHALATION QID.RESPIRATORY [facility] Last Admin: 02/18/22 19:39 Dose: 3 ml Aspirin (Aspirin 81 Mg Ec Tablet) 81 mg PO DAILY [facility] Last Admin: 02/18/22 10:14 Dose: 81 mg Atorvastatin Calcium (Atorvastatin 40 Mg Tablet) 20 mg PO BEDTIME [facility] Last Admin: 02/18/22 20:47 Dose: 20 mg Budesonide (Budesonide 0.5 Mg/2 Ml Neb) 0.5 mg INHALATION BID.RESPIRATORY [facility] Last Admin: 02/18/22 19:39 Dose: 0.5 mg Carvedilol (Carvedilol 6.25 Mg Tablet) 6.25 mg PO BID [facility] Last Admin: 02/18/22 10:13 Dose: 6.25 mg Dextrose (Dextrose 50% Syringe 50 Ml) 25 ml IVP ONCE PRN; Protocol PRN Reason: hypoglycemia protocol Diphenhydramine HCl (Diphenhydramine 25 Mg Capsule) 25 mg PO BEDTIME [facility] Last Admin: 02/18/22 20:47 Dose: 25 mg Ergocalciferol (Ergocalciferol (Vitamin D2) 50,000 Unit Capsule) 50,000 unit PO Q7D [facility] Last Admin: 02/17/22 09:24 Dose: 50,000 unit Gabapentin (Gabapentin 100 Mg Capsule) 100 mg PO TID [facility] Last Admin: 02/18/22 20:47 Dose: 100 mg Glucagon (Glucagon 1 Mg/Ml Inj 1 Ml) 1 mg IM ONCE PRN; Protocol PRN Reason: Adult Acute Hypoglycemia Prot. Dextrose (D5w) 500 mls @ 100 mls/hr IV ONCE PRN; Protocol PRN Reason: Adult Acute Hypoglycemia Prot Insulin Glargine (Insulin Glargine 100 Units/1 Ml) 15 unit SUBCUT BID [facility] Last Admin: 02/18/22 17:14 Dose: 15 unit Insulin Human Lispro (Insulin Lispro 100 Unit/1 Ml) 0 unit SUBCUT WM&BEDTIME SC H; Protocol Last Admin: 02/18/22 22:10 Dose: 2 unit Magnesium Oxide (Magnesium Oxide 400 Mg Tablet) 400 mg PO BID [facility] Last Admin: 02/18/22 17:14 Dose: 400 mg Multivitamins (V-Xxowyox-Qsnardg C Tablet) 1 each PO DAILY [facility] Last Admin: 02/18/22 10:13 Dose: 1 each Nitroglycerin (Nitroglycerin 0.4 Mg Sublingual Tablet) 0.4 mg SUBLINGUAL Q5M PRN PRN Reason: CHEST PAIN Ondansetron HCl (Ondansetron 2 Mg/Ml Sdv 2 Ml) 4 mg IVP Q8H PRN PRN Reason: vomiting, or N/V if npo Last Admin: 02/11/22 08:36 Dose: 4 mg Pantoprazole Sodium (Pantoprazole Dr 40 Mg Tablet) 40 mg PO DAILY@12 [facility] Last Admin: 02/18/22 10:13 Dose: 40 mg Tamsulosin HCl (Tamsulosin 0.4 Mg Capsule) 0.4 mg PO BEDTIME [facility] Last Admin: 02/18/22 20:47 Dose: 0.4 mg Tramadol HCl (Tramadol 50 Mg Tablet) 50 mg PO Q6H PRN PRN Reason: MODERATE PAIN Last Admin: 02/19/22 00:14 Dose: 50 mg Vitals/I&O/Wt Last Vital Signs Temp 98.2 F 02/19/22 04:00 Pulse 76 02/19/22 04:00 Resp 16 02/19/22 04:00 BP 125/82 02/19/22 04:00 Pulse Ox 95 02/19/22 04:00 O2 Del Method 02/18/22 19:40 O2 Flow Rate 2 02/17/22 07:22 02/18/22 02/18/22 02/19/22 14:59 22:59 06:59 Intake Total 480 / 480 480 / 960 Output Total 800 / 800 1200 / 2000 Balance 480 / 480 -320 / 160 -1200 / -1040 Physical Exam Narrative: young lady, comfortable in bed, NARD vs noted- pulse ox 100% heent- nc/at, eomi, anicteric neck supple lungs -clear b/l heart reg abd soft, nt, nd, + bs ext trace edema neuro- a,a, o x 3 Urinary Catheter Management: Sanders: Cath Placed During This Visit: yes Reason for Continuing Indwelling Catheter: Other Urinary Catheter Date of Insertion: 02/12/22 Urinary Catheter Time of Insertion: 15:50 Data : 02/18/22 01:11 02/19/22 04:43 A&P Assessment and plan (1) ERICA (acute kidney injury): 36 yr old female ex-ivdu, iddm, htn, recent cavitary pna 1. ERICA - improved rt hydronephrosis -repeat ua protein improved, 3 + blood -high ur na -etiology is likely partial Obstructive uroapthy. -high uop Q septic emboli Q CRS Q covid- nephropathy -send serologies - Q infection related -cr stable 2. DM control per PMD hgb a1c of 10.3 3. CAD- for stress test. if needs a cardiac cath, will give nina-cath ivf 4. hyperkalemia improved 5. bp controlled 6. anemia- high iron sat- hgb improving- consider epogen 7. replace vit d pth 123- recheck in 4 weeks seen and examined w/ RN- telehealth visit time spent 25 min discussed w/ pt and RN Status: Acute Plan see above Attestations Medical Necessity Statement*: per medicine Time Spent in Patient Care: 16 - 35 minutes (>than 50% of time spent in counselling and/or direct pt care on unit) . Coding Level of Care Code Acute [employer] for Reji Chandler Diagnoses ERICA (acute kidney injury) N17.9
[2022-02-19 06:42] LABS: Glucose Point of Care 65 mg/dL (70-110)
[2022-02-19] MEDS: dextrose 50% syringe 50 mL IVP ×2 (06:57→11:58)
[2022-02-19] MEDS: regadenoson 0.4 Mg/5 ml Syringe IVP (07:47)
--- NOTE | 2022-02-19 07:51 | PC.NURSE ---
patient taking to stress test before another BS check could be done
--- NOTE | 2022-02-19 08:42 | P.PN_ITS ---
Subjective Subjective: No obvious problems overnight. She is down getting her stress test at this time. Her vitals have been normal. No chest pain according to the nurses. Afebrile. Yesterday I stopped the Nitropaste and put the beta-marii on hold in anticipation of today's stress test. I also discontinued the h eparin. Vitals/I&O/Wt Last Vital Signs Temp 98.2 F 02/19/22 04:00 Pulse 79 02/19/22 08:15 Resp 16 02/19/22 04:00 BP 115/69 02/19/22 08:15 Pulse Ox 95 02/19/22 04:00 O2 Del Method 02/18/22 19:40 O2 Flow Rate 2 02/17/22 07:22 02/18/22 02/19/22 02/19/22 22:59 06:59 14:59 Intake Total 480 / 960 Output Total 800 / 800 1200 / 2000 Balance -320 / 160 -1200 / -1040 Physical Exam Narrative: GENERAL: In general she appears comfortable. HEENT: Exam within normal limits. NECK: Supple without jugular vein distention. The carotid upstroke is normal wit hout bruits. BACK: Exam normal. LUNGS: Clear. HEART: Regular rate and rhythm. ABDOMEN: Benign without organomegaly or tenderness. EXTREMITIES: No edema. NEUROLOGIC: Exam normal. SKIN: Unremarkable. Urinary Catheter Management: Sanders: Cath Placed During This Visit: yes Reason for Continuing Indwelling Catheter: Other Urinary Catheter Date of Insertion: 02/12/22 Urinary Catheter Time of Insertion: 15:50 Data : 02/18/22 01:11 02/19/22 04:43 A&P Assessment and plan (1) ERICA (acute kidney injury): Status: Acute (2) CHF (congestive heart failure), NYHA class III: Status: Acute Qualifiers: Congestive heart failure type: systolic Congestive heart failure chronicity: acute on chronic Qualified Code(s): I50.23 - Acute on chronic systolic (congestive) heart failure (3) Pulmonary hypertension: Status: Acute (4) Respiratory failure with hypoxia: Status: Acute (5) Type 1 diabetes mellitus: Status: Acute (6) Long-term insulin use: Status: Acute (7) Diabetic neuropathy associated with type 1 diabetes mellitus: Status: Chronic Qualifiers: Diabetes mellitus complication detail: diabetic polyneuropathy Qualified Code(s): E10.42 - Type 1 diabetes mellitus with diabetic polyneuropathy (8) Diabetic gastroparesis: Status: Acute (9) COPD exacerbation: Status: Acute (10) Community acquired pneumonia: Status: Acute (11) Hyperlipidemia: Status: Acute Plan We will await the results of the stress test for risk stratification. Further recommendations after this. Attestations Medical Necessity Statement*: Hospitalization for multiple medical problems as noted. 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 for g Fwd Patient Type Established History Detailed Exam Detailed Medical Decision Making Moderate Complexity Diagnoses ERICA (acute kidney injury) N17.9 CHF (congestive heart failure), NYHA class III I50.23 Congestive heart failure type: systolic Congestive heart failure chronicity: acute on chronic Pulmonary hypertension I27.20 Respiratory failure with hypoxia J96.91 Type 1 diabetes mellitus E10.9 Long-term insulin use Z79.4 Diabetic neuropathy associated with type 1 diabetes mellitus E10.42 Diabetes mellitus complication detail: diabetic polyneuropathy Diabetic gastroparesis E11.43; K31.84 COPD exacerbation J44.1 Community acquired pneumonia J18.9 Hyperlipidemia E78.5
[2022-02-19] MEDS: ipratropium-albuterol 3 mL Neb INHALATION ×3 (09:22→16:27)
[2022-02-19] MEDS: budesonide 0.5 mg/2 mL Neb INHALATION (09:22)
[2022-02-19] MEDS: gabapentin 100 mg Capsule PO ×2 (10:53→14:55)
[2022-02-19] MEDS: b-complex-vitamin c Tablet 1 EACH PO (10:53)
[2022-02-19] MEDS: aspirin 81 mg EC Tablet PO (10:53)
[2022-02-19] MEDS: magnesium oxide 400 mg tablet PO (10:54)
--- NOTE | 2022-02-19 11:16 | NMCV_ITS ---
NM bryn perf SPECT r/s* [id number] Donita Aguilar Age: 36 Gender: F : 1985 Exam Date: 02/19/2022 11:16 Ordering Phys: Ruy Edgar MD Technologist: TALHA Tompkins Exam Location: [facility] Indications: CHEST PAIN STRESS TEST [facility] IMAGE PROTOCOL Rest/Stress 1 Lexiscan Day Radiopharmaceutical Dose (mCi) Administration Site Administered by Rest: Tc-99m 10.9 IV TALHA Pruett Sestamibi Stress:Tc-99m 32.6 IV TALHA Pruett Sestamibi Rest: 19-Feb-2022 60 Discovery 630 Stress: 19-Feb-2022 30 Discovery 630 0.4mg Lexiscan. Supine position only as patient was unable to lay prone. SPECT RESULTS Technical Quality: Excellent Raw Data Analysis: Normal Image Corrections: No attenuation or motion correction applied Summed Stress Score: 5 Summed Rest Score: 4 Summed Difference Score: 2 PERFUSION FINDINGS Medium sized perfusion abnormality of mid to apical anterior, apical septal and basal to mid inferior espinosa on rest images with subtle reversibility in apical anterior and apical septal espinosa on stress images. FUNCTIONAL RESULTS (calculated via Gated SPECT) Stress Image LV EF (%): 40 Stress EDV (mL):171 TID: 1.02 Stress ESV (mL):102 FUNCTIONAL FINDINGS: The left ventricle is normal in size. Transient Ischemia Dilatation of 1. The left ventricular ejection fraction is moderately reduced with a value of 40%. Markedly increased end diastolic and end systolic volumes. There seems to be hypokinesis of septum, apical septal, apical inferior and apical lateral espinosa. IMPRESSIONS 1. Medium sized perfusion abnormality of mid to apical anterior, apical septal and basal to mid inferior espinosa with subtle reversibility in apical anterior and apical septal espinosa. 2. This may represent attenuation artifact in abscence of prone imaging or old UT in RCA/LAD artery territory with subtle nina-infarct ischemia. 3. The left ventricular ejection fraction is moderately reduced with a value of 40%. 4. There seems to be hypokinesis of septum, apical septal, apical inferior and apical lateral espinosa. 5. No prior similar studies to compare. Maame Montero MD (Electronically Signed) Final Date: 19 February 2022 16:35 S
[2022-02-19] MEDS: pantoprazole DR 40 mg Tablet PO (11:59)
[2022-02-19 12:00] LABS: Glucose Point of Care 60 mg/dL (70-110)
--- NOTE | 2022-02-19 12:04 | PC.NURSE ---
patient given prn dextrose for bs of 60 waiting for lunch tray asymptomatic at this time
[2022-02-19 12:22] LABS: Glucose Point of Care 168 mg/dL (70-110)
--- NOTE | 2022-02-19 16:28 | PM.DCS ---
Discharge Providers Date of Admission: 02/10/22 04:44 Date of Discharge: February 19, 2022 Attending Provider at Admission: Shola Carrera MD Attending Provider at Discharge: Ruy Edgar MD Consults: Telemetry nephrology Cardiology: Dr. Montero Primary Care Provider: SUZANNE Dias Diagnoses at Discharge Discharge Diagnosis (1) ERICA (acute kidney injury): Status: Acute (2) CHF (congestive heart failure), NYHA class III: Status: Acute Qualifiers: Congestive heart failure chronicity: acute on chronic Congestive heart failure type: systolic Qualified Code(s): I50.23 - Acute on chronic systolic (congestive) heart failure (3) Pulmonary hypertension: Status: Acute (4) Respiratory failure with hypoxia: Status: Acute (5) Type 1 diabetes mellitus: Status: Acute (6) Long-term insulin use: Status: Acute (7) Diabetic neuropathy associated with type 1 diabetes mellitus: Status: Chronic Qualifiers: Diabetes mellitus complication detail: diabetic polyneuropathy Qualified Code(s): E10.42 - Type 1 diabetes mellitus with diabetic polyneuropathy (8) Diabetic gastroparesis: Status: Acute Permanent problem details: -continue Reglan (9) COPD exacerbation: Status: Acute (10) Community acquired pneumonia: Status: Acute (11) Hyperlipidemia: Status: Acute Reason for Visit Reason for Visit: sob Hospital Course Hospital Course Donita Aguilar is a 36 year old female with a past medical history for left lower lobe lobectomy for cavitary pneumonia, history of polysubstance abuse, insulin-dependent type 2 diabetes mellitus, history of diabetic nephropathy, recently hospitalized for COVID-19 pneumonia, ERICA on CKD, who presents [facility] due to shortness of breath. She will need to the hospital for further evaluation and management. Admission there was a concern for COPD exacerbation and congestive heart failure. She started on aggressive IV diuresis along with elevation treatment. There were no concerns for pneumonia. On review of chart it seems on on previous admission patient had echocardiogram which showed regional wall motion abnormality and ejection fraction of 40 to 45%. For ERICA on CKD: There is a concern that patient's CKD is a combination of chronic neurogenic bladder leading to occasional hydronephrosis in setting of diabetic nephropathy. On admission CT abdomen pelvis was done which did not show any hydronephrosis or obstructive uropathy but a repeat ultrasound during the admission showed right hydronephrosis which has resolved after catheterization on a repeat renal ultrasound prior to discharge. Her creatinine is trending down with a robust urine output response after urine catheterization. She is to maintain Sanders catheter for now, be on Flomax and follow-up with urology within next 1 week for further evaluation and management. For CAD: During hospitalization patient did have episode of chest pain after which troponins were as high as 300 with a delta negative. Cardiology was consulted. Repeat echocardiogram did not show new regional wall motion abnormality and showed mildly low EF. At first as per noninterventional cardiology the plan was to do cardiac catheterization on improvement of creatinine closer to baseline but when interventional cardiology was consulted they were not comfortable with cardiac catheterization given her young age, concerns for CKD leading to MARTÍN and renal failure requiring dialysis. Further stratification patient underwent Lexiscan stress test which was negative for reversible ischemia hence cardiac catheterization was deferred. Patient did not have any further chest pain during hospitalization. She will discharge hemodynamically stable condition with Sanders catheter on oral Lasix with advised to follow-up with urology, Patient here from cardiology within next 2 weeks, with primary care provider within next [address] Villareal from cardiology within next 1 month. Physical Exam Narrative: AOx3, no acute distress, pallor present chronically ill-appearing. Heart regular normal S1-S2, soft pansystolic murmur at apex Lungs diffuse crackles bilateral bases with rhonchi heard in the left upper posterior lung abdomen soft nontender nondistended positive bowel sounds Extremities +2 pitting edema to knees. Urinary Catheter Management: Sanders: Cath Placed During This Visit: yes Reason for Continuing Indwelling Catheter: Other Urinary Catheter Date of Insertion: 02/12/22 Urinary Catheter Time of Insertion: 15:50 Discharge Data Studies Completed and Pending Completed Studies During Hospitalization Category Date Time Status Sestamibi Stress Test Request Routine Exams 02/19/22 06:30 Draft XR chest 1V portable [id number] Stat Exams 02/10/22 02:01 Completed NM pul vent and perfus* [id number] Routine Nuc Med 02/13/22 18:03 [place] [id number] Stat Ultrasound 02/10/22 04:28 Completed CV. echo limited [id number] Routine Ultrasound 02/12/22 18:01 Completed US renal BI* [id number] Routine Ultrasound 02/12/22 18:05 Completed US renal BI* [id number] Routine Ultrasound 02/15/22 08:08 Completed Pending at discharge Category Date Time Status Sestamibi Stress Test Request Routine Exams 02/13/22 09:08 Stop Req Sestamibi Stress Test Request Routine Exams 02/17/22 11:16 Stop Req CHANELLE Screen w/ Reflex Routine Lab 02/16/22 09:14 Received Anti Double Stranded DNA AB Routine Lab 02/16/22 09:14 Received Anti-Neutrophil Cytoplasmic AB Routine Lab 02/16/22 09:14 Received Comprehensive Metabolic Panel AM LABS Lab 02/20/22 04:00 Ordered Glomerular Basement AB IGG Routine Lab 02/16/22 09:14 Received Magnesium AM LABS Lab 02/20/22 04:00 Ordered Phosphorus AM LABS Lab 02/20/22 04:00 Ordered Urine Culture Stat Lab 02/16/22 22:51 Received Vitamin D 1,25 Dihydroxy Routine Lab 02/16/22 09:14 Received NM bryn perf SPECT r/s* [id number] Routine Nuc Med 02/19/22 11:16 Taken Radiology Impressions Chest X-Ray 02/10/22 02:01 IMPRESSION: 1. Small left pleural effusion 2. Bronchial wall thickening and strandy and patchy opacities present in the lower hemithoraces may represent atelectasis although bilateral basilar infiltrates and pneumonia cannot be excluded. Venous Duplex 02/10/22 04:28 IMPRESSION: No evidence of deep vein thrombosis. Pulmonary Perfusion Imaging 02/13/22 18:03 IMPRESSION: 1. Low probability for pulmonary embolus. Renal Ultrasound 02/15/22 08:08 IMPRESSION: 1. No hydronephrosis in either kidney today. RIGHT hydronephrosis has resolved. 2. Sanders catheter. Echocardiogram: CONCLUSIONS ?This is a limited echocardiogram. ?LV systolic function is mildly reduced with EF of 40 to 45%.? ?Moderate hypokinesis of mid to apical anterior and anterolateral?espinosa. ?Right ventricle is normal in size and function. ?No gross valvular structural abnormalities seen.? Doppler exam?not done for all valves. Mild tricuspid and mitral regurgitation ?Trace pericardial effusion ?Compared to prior echocardiogram from 01/26/2022, LV systolic?function has decreased slightly. ?Riccardo Burch MD ?(Electronically Signed) ?Final Date:? ? ? 13 February 2022 Laboratory Results WBC 11.8 10^3/uL (4.0-10.0) H 02/17/22 03:47 RBC 3.66 10^6/uL (4.1-5.3) L 02/17/22 03:47 Hgb 9.9 g/dL (11.5-15.3) L 02/17/22 03:47 Hct 31.7 % (37.0-47.0) L 02/17/22 03:47 MCV 86.6 fl (81-99) 02/17/22 03:47 MCH 27.0 pg (28.0-34.0) L 02/17/22 03:47 MCHC 31.2 g/dL (30.0-36.0) 02/17/22 03:47 RDW 16.4 % (12.1-15.1) H 02/17/22 03:47 Plt Count 283 10^3/cmm (130-400) 02/18/22 01:11 MPV 10.6 fL (7.4-10.4) H 02/17/22 03:47 Neut % (Auto) 71.8 % 02/17/22 03:47 Lymph % (Auto) 21.1 % 02/17/22 03:47 [place] % (Auto) 6.6 % 02/17/22 03:47 Eos % (Auto) 0.1 % 02/17/22 03:47 Baso % (Auto) 0.1 % 02/17/22 03:47 Neut # (Auto) 8.44 10^3/uL (1.8-7.7) H 02/17/22 03:47 Lymph # (Auto) 2.5 10^3/uL (0.8-4.8) 02/17/22 03:47 [place] # (Auto) 0.8 10^3/uL (0.2-0.9) 02/17/22 03:47 Eos # (Auto) 0.0 10^3/uL (0.0-0.8) 02/17/22 03:47 Baso # (Auto) 0.0 10^3/uL (0.0-0.1) 02/17/22 03:47 Nucleated RBC % (auto) 0 % 02/17/22 03:47 Nucleated RBCs # 0.0 /100WBC 02/17/22 03:47 PT 16.10 SECONDS (12.1-14.9) H 02/15/22 03:05 INR 1.26 (0.8-1.2) H 02/15/22 03:05 APTT 60.7 SECONDS (23.9-36.7) H 02/18/22 01:11 D-Dimer 0.70 ug/mIFEU (0-0.59) H 02/12/22 19:49 Sodium 143 mmol/L (136-145) 02/19/22 04:43 Potassium 4.6 mmol/L (3.5-5.1) 02/19/22 04:43 Chloride 107 mmol/L (98-107) 02/19/22 04:43 Carbon Dioxide 27 mmol/L (22-29) 02/19/22 04:43 Anion Gap 13.6 (5-19) 02/19/22 04:43 BUN 59 mg/dL (6-20) H 02/19/22 04:43 Creatinine 1.9 mg/dL (0.5-0.9) H 02/19/22 04:43 GFR Calculation 30.1 mL/min (90-130) L 02/19/22 04:43 Glucose 66 mg/dL (65-115) 02/19/22 04:43 POC Glucose 168 mg/dL (70-110) H 02/19/22 12:19 Estimat Average Glucose 249 02/15/22 03:05 Hemoglobin A1c 10.3 % (4.0-6.0) H 02/15/22 03:05 Calculated Osmolality 311 mOsm/kg (285-295) H 02/19/22 04:43 Uric Acid 9.3 mg/dL (2.4-5.7) H 02/16/22 09:14 Calcium 8.5 mg/dL (8.5-10.5) 02/19/22 04:43 Phosphorus 4.4 mg/dL (2.5-4.5) 02/19/22 04:43 Magnesium 1.9 mg/dL (1.7-2.3) 02/19/22 04:43 Iron 100 ug/dL (37-145) 02/17/22 11:02 TIBC 174 mcg/dl 02/17/22 11:02 % Saturation 57.4 % (20-50) H 02/17/22 11:02 Unsat Iron Binding 74 ug/dL (112-347) L 02/17/22 11:02 Ferritin 345 ng/mL (15-150) H 02/17/22 11:02 Total Bilirubin 0.2 mg/dL (0.15-1.2) 02/19/22 04:43 AST 38 U/L (0-32) H 02/19/22 04:43 ALT 44 U/L (0-33) H 02/19/22 04:43 Alkaline Phosphatase 96 U/L (35-105) 02/19/22 04:43 Creatine Kinase 38 U/L (26-192) 02/15/22 03:05 Troponin T Baseline 354 ng/L (0-10) H* 02/14/22 21:23 Troponin T 120 Minute 351.1 ng/L (0-10) H 02/14/22 23:44 Delta Troponin T -2.9 ABS# (0-10) L 02/14/22 23:44 Troponin T Hi Sens 6Hr 364.7 ng/L (0-10) H 02/15/22 03:05 Troponin T Hi Sens 6Hr Delta 10.7 ng/L (0-12) 02/15/22 03:05 C-Reactive Protein 3.0 mg/L (0.0-4.9) 02/10/22 06:41 NT-Pro-B Natriuret Pep 53026 pg/mL (0-125) H 02/15/22 03:05 Total Protein 5.5 g/dL (6.6-8.7) L 02/19/22 04:43 Albumin 2.8 g/dL (3.5-5.2) L 02/19/22 04:43 Globulin 2.7 g/dL (1.3-4.6) 02/19/22 04:43 Triglycerides 52 mg/dL (0-150) 02/15/22 03:05 Cholesterol 122 mg/dL (0-200) 02/15/22 03:05 LDL Cholesterol, Calc 40 mg/dL (50-129) L 02/15/22 03:05 Total VLDL Cholesterol 10 mg/dL (0-30) 02/15/22 03:05 HDL Cholesterol 72 mg/dL (60-100) 02/15/22 03:05 Cholesterol/HDL Ratio 1.69 mg/dL (0.0-4.40) 02/15/22 03:05 Vitamin B12 324 pg/mL (232-1245) 02/12/22 19:49 25-OH Vitamin D Total 13 ng/mL (30-100) L 02/17/22 03:47 Folate 10.1 ng/mL (4.8-37.3) 02/12/22 19:49 Procalcitonin 0.11 ng/mL (0-0.5) 02/10/22 06:41 TSH 3.26 uIU/mL (0.27-4.20) 02/10/22 06:41 Ser , Semi-Qnt 0.50 mIU/mL 02/10/22 02:41 PTH Intact 123.0 pg/mL (15-65) H 02/17/22 03:47 Calcium (PTH Intact) 8.6 mg/dL (8.5-10.5) 02/17/22 03:47 Urine Color Straw (Yellow) 02/16/22 22:51 Urine Appearance Cloudy (CLEAR) 02/16/22 22:51 Urine pH 5 (5-7) 02/16/22 22:51 Ur Specific [place] 1.010 (1.005-1.030) 02/16/22 22:51 Urine Protein 1+ (Negative) H 02/16/22 22:51 Urine Glucose (UA) Norm (Normal) 02/16/22 22:51 Urine Ketones Negative (Negative) 02/16/22 22:51 Urine Blood 3+ (Negative) H 02/16/22 22:51 Urine Nitrate Negative (Negative) 02/16/22 22:51 Urine Bilirubin Neg (Negative) 02/16/22 22:51 Urine Urobilinogen Norm mg/dL (Negative) 02/16/22 22:51 Ur Leukocyte Esterase 2+ (Negative) H 02/16/22 22:51 Urine RBC 5-10 /hpf (0-2) H 02/16/22 22:51 Urine WBC 40-55 /hpf (0-5) H 02/16/22 22:51 Ur Eosinophil Smear Not Reportable 02/12/22 20:23 Ur Squamous Epith Cells Rare /hpf (0-5) 02/16/22 22:51 Amorphous Sediment Not Reportable 02/16/22 22:51 Urine Bacteria Trace /hpf (NONE) 02/16/22 22:51 Urine Yeast 3+ /hpf H 02/16/22 22:51 Urine Eosinophils No eosinophils seen 02/12/22 20:23 Ur Random Sodium 56 mmol/L 02/16/22 22:51 Ur Random Potassium 17 mmol/L 02/16/22 22:51 Ur Random Chloride 40 mmol/L 02/16/22 22:51 Urine Creatinine 18 mg/dL (28-217) L 02/12/22 20:23 Urine Opiates Screen Positive ng/mL (Negative) H 02/12/22 20:23 Ur Barbiturates Screen Negative ng/mL (Negative) 02/12/22 20:23 Ur Phencyclidine Scrn Negative ng/mL (Negative) 02/12/22 20:23 Ur Amphetamines Screen Negative ng/mL (Negative) 02/12/22 20:23 U Benzodiazepines Scrn Negative ng/mL (Negative) 02/12/22 20:23 Urine Cocaine Screen Negative ng/mL (Negative) 02/12/22 20:23 U Marijuana (THC) Screen Negative ng/mL (Negative) 02/12/22 20:23 Complement C3 98 mg/dL (90-180) 02/16/22 09:14 Complement C4 23 mg/dL (10-40) 02/16/22 09:14 Hepatitis C Antibody Non-reactive (Nonreactive) 02/16/22 09:14 Influenza Type A Ag Negative (Negative) 02/12/22 16:15 Influenza Type B Ag Negative (Negative) 02/12/22 16:15 SARS-CoV-2 Ag (Rapid) Negative (Negative) 02/12/22 16:15 Vitals Last Vital Signs Temp 98.1 F 02/19/22 15:59 Pulse 78 02/19/22 15:59 Resp 17 02/19/22 15:59 BP 122/79 02/19/22 15:59 Pulse Ox 100 02/19/22 15:59 O2 Del Method 02/19/22 15:59 O2 Flow Rate 2 02/17/22 07:22 Discharge Plan Discharge Patient Disposition: Home Condition: Stable Prescriptions: New atorvastatin 40 mg Tablet 20 mg PO BEDTIME 30 Days Qty: 30 0RF carvedilol 6.25 mg Tablet 3.125 mg PO BID 30 Days Qty: 30 0RF aspirin 81 mg Tablet,Delayed Release (Dr/Ec) 81 mg PO DAILY 30 Days Qty: 30 0RF gabapentin 100 mg Capsule 100 mg PO TID 30 Days Qty: 90 0RF ergocalciferol (vitamin D2) [Vitamin D2] 1,250 mcg (50,000 unit) Capsule 50,000 unit PO Q7D 30 Days Qty: 5 0RF Rx Instructions: On Mondays Continued Glucagon (HCl) Emergency Kit 1 mg recon soln 1 mg SUBCUT Q20M PRN (Reason: hypoglycemia) Qty: 3 3RF Rx Instructions: until target blood sugar attained ondansetron 4 mg tablet,disintegrating 4 mg PO Q6H PRN (Reason: nausea and vomiting) Qty: 14 0RF Pepto-Bismol 262 mg Tablet 2 tab PO Q1H PRN (Reason: Heartburn) Rx Instructions: do not exceed 16 tabs per 24 hrs tamsulosin 0.4 mg capsule 0.4 mg PO BEDTIME pantoprazole 40 mg tablet,delayed release (DR/EC) 40 mg PO DAILY@12 albuterol sulfate 90 mcg/actuation HFA aerosol inhaler 2 puff inhalation Q8H PRN (Reason: shortness of breath or wheezing) diphenhydramine HCl [Benadryl Allergy] 25 mg Tablet 25 mg PO BEDTIME insulin aspart U-100 [Novolog Flexpen U-100 Insulin] 100 unit/mL (3 mL) Insulin Pen See Rx Instructions .ROUTE .COMPLEX Rx Instructions: SLIDING SCALE subcutaneously TID furosemide 20 mg Tablet 20 mg PO DAILY@0800 PRN (Reason: Weight gain) Qty: 30 0RF insulin glargine [Lantus Solostar U-100 Insulin] 100 unit/mL (3 mL) insulin pen 15 unit SUBCUT BID Qty: 15 3RF Discontinued amoxicillin-pot clavulanate [Augmentin] 500-125 mg tablet 1 tab PO BID Qty: 14 0RF Discharge Orders: Discharge Order (Routine); Ordered 02/19/22 Ordered By: Ruy Edgar Referrals: Elizabeth Dougherty FNP [Primary Care Provider] - 02/27/22 2:30 pm Jimmy Vieyra MD [Physician] - 7-10 days (DR VIEYRA OFFICE WILL CALL WITH APPOINTMENT) Noel Flor FNP [Nurse Practitioner] - 02/28/22 1:45 pm Tyrell Ortega MD [Physician] - 7-10 days (PLEASE CALL FOR APPOINTMENT) Maame Montero MD [Physician] - 1 month (APPOINTMENT WILL BE AFTER APPOINTMENT WITH NOEL FLOR IN HEART CARE) Discharge Diet: Cardiac and Diabetic Discharge Activity: Resume usual activity and Increase activity as tolerated Patient Instructions: Gabapentin (By mouth), Atorvastatin (By mouth), Carvedilol (By mouth), Heart Attack (DC), Heart Failure (ED), CHF Stoplight, Opioid Safety Activity Restrictions/Additional Instructions: Please follow-up with urology on set appointment for neurogenic bladder. Please follow-up with nurse practitioner from cardiology for further recommendations. Please follow-up with your primary care provider within next 1 week. Please follow-up with Dr. Hobbs from endocrinology for possible insulin pump. Going forward you will be on aspirin, atorvastatin which is a cholesterol medication, Coreg 3.125 mg twice daily which is a blood pressure medication. Please abstain from smoking, alcohol use or IV drug use. Please maintain a blood sugar diary by checking your blood sugars at least 3 times a day and follow-up with your primary care provider and your personal lines insurance agent on set appointment. A Sanders catheter remains in for more than 1 month it should be changed. Discharge Attestations Time Spent in Discharge Care*: greater than 30 min Specific Discharge Activities: educating patient, educating and/or supporting family/caregiver, discussing with pcp/other providers, discussing with dependency case manager/social workers/dc planners, documenting/other paperwork and evaluating patient/reviewing data Status at Discharge: Cognitive status at discharge: cognitively intact, Behavioral status at discharge: cooperative and independent in ADL's, Functional status at discharge: independent ambulation, Quality Metrics Clinical Quality Measures [ No reported AMI, CVA or VTE this stay] Coding Level of Care Code Acute [facility] DC note Diagnoses EIRCA (acute kidney injury) N17.9 CHF (congestive heart failure), NYHA class III I50.23 Congestive heart failure chronicity: acute on chronic Congestive heart failure type: systolic Pulmonary hypertension I27.20 Respiratory failure with hypoxia J96.91 Type 1 diabetes mellitus E10.9 Long-term insulin use Z79.4 Diabetic neuropathy associated with type 1 diabetes mellitus E10.42 Diabetes mellitus complication detail: diabetic polyneuropathy Diabetic gastroparesis E11.43; K31.84 COPD exacerbation J44.1 Community acquired pneumonia J18.9 Hyperlipidemia E78.5
[2022-02-20 09:09] LABS: Anti-Double Strand DNA AB <1 IU/mL
[2022-02-20 14:28] LABS: Anti-Nuclear Antibody Screen NEGATIVE (NEGATIVE)
[2022-02-20 14:37] LABS: Glomerular Bsmt Membrane IGG <1.0 AI
[2022-02-20 15:43] LABS: ANCA Screen NEGATIVE (NEGATIVE)
[2022-02-23 13:48] LABS: Vit D 1,25 (Oh)2, Total <8 pg/mL (18-72); Vit D2 1,25 (Oh)2 <8 pg/mL; Vit D3 1,25 (Oh)2 <8 pg/mL
== END 2022-02-19 17:20 | disposition home or self-care (01) | DRG 280 ==
LOC: ER 04:12 → MEDSURG 08:25
PROVIDERS: Internal Medicine; Internal Medicine Nephrology; Admitting Provider Family Medicine; Emergency Provider Emergency Medicine; PCP Nurse Practitioner Family; Visit Provider Student in an Organized Health Care Education/Training Program
DX: I13.0 Hypertensive heart and chronic kidney disease with heart failure and stage 1 through stage 4 chronic kidney disease, or unspecified chronic kidney disease (principal); I50.23 Acute on chronic systolic (congestive) heart failure; I21.4 Non-ST elevation (NSTEMI) myocardial infarction; J96.01 Acute respiratory failure with hypoxia; J44.1 Chronic obstructive pulmonary disease with (acute) exacerbation; N13.30 Unspecified hydronephrosis; N17.9 Acute kidney failure, unspecified; N18.9 Chronic kidney disease, unspecified; E10.22 Type 1 diabetes mellitus with diabetic chronic kidney disease; Z90.2 Acquired absence of lung [part of]; E10.21 Type 1 diabetes mellitus with diabetic nephropathy; E10.43 Type 1 diabetes mellitus with diabetic autonomic (poly)neuropathy; K31.84 Gastroparesis; E10.40 Type 1 diabetes mellitus with diabetic neuropathy, unspecified; Z86.16 Personal history of COVID-19; Z87.01 Personal history of pneumonia (recurrent); D63.1 Anemia in chronic kidney disease; F41.9 Anxiety disorder, unspecified; Z87.440 Personal history of urinary (tract) infections; Z86.14 Personal history of Methicillin resistant Staphylococcus aureus infection; F17.210 Nicotine dependence, cigarettes, uncomplicated; R10.9 Unspecified abdominal pain; N31.9 Neuromuscular dysfunction of bladder, unspecified; I08.1 Rheumatic disorders of both mitral and tricuspid valves; Z79.51 Long term (current) use of inhaled steroids; Z79.4 Long term (current) use of insulin; G43.001 Migraine without aura, not intractable, with status migrainosus; E87.5 Hyperkalemia; Z82.49 Family history of ischemic heart disease and other diseases of the circulatory system; I27.20 Pulmonary hypertension, unspecified; F15.11 Other stimulant abuse, in remission; I25.10 Atherosclerotic heart disease of native coronary artery without angina pectoris
CPT/HCPCS: 36415; 36416; 51702; 71045; 76770; 78014; 78452; 80053; 80061; 80306; 81001; 82306; 82310; 82436; 82550; 82570; 82607; 82652; 82728; 82746; 82962; 83036; 83520; 83540; 83550; 83735; 83880; 83970; 84100; 84133; 84145; 84300; 84443; 84484; 84550; 84702; 85025; 85049; 85378; 85610; 85730; 85999; 86036; 86038; 86140; 86160; 86225; 86803; 87040; 87070; 87081; 87086; 87205; 87426; 87804; 93005; 93017; 93308; 93970; 94640; 94664; 96372; 96374; 96375; 99285; A9500; A9540; A9567; J0610; J1170; J1644; J1650; J1815; J1885; J1940; J2270; J2405; J2785; J2920; J2930; J3475; J7030; J7512; J7626; P9047; Q0144

== ENCOUNTER 2022-02-26 18:47 | Inpatient (IN) | payer BC, SELFPAY ==
[2022-02-26] VITALS (8 sets, daily range): BP systolic 90–160; BP diastolic 59–84; PULSE 60–76; RESP 12–18; TEMP 36.8; O2SAT 94–100; BMI 27.3
--- NOTE | 2022-02-26 18:59 | ECG_ITS ---
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 Measurements Intervals [place] Rate: 75 P: -9 MD: 146 QRS: 42 QRSD: 87 T: 139 QT: 377 QTc: 422 Interpretive Statements SINUS RHYTHM LOW QRS VOLTAGE IN EXTREMITY LEADS [QRS DEFLECTION < 0.5 mV IN LIMB LEADS] ABNORMAL QRS-T ANGLE [QRS-T AXIS DIFFERENCE > 60] Compared to ECG 02/15/2022 03:03:31 Low QRS voltage now present T-wave abnormality no longer present Electronically Signed On 02-26-2022 19:03:51 CDT by Maame Montero M.D. [id number]
--- NOTE | 2022-02-26 19:16 | XRR_ITS ---
PROCEDURE INFORMATION: Exam: XR Chest Exam date and time: 02/26/2022 8:02 PM Age: 36 years old Clinical indication: Pain; Chest pressure; Additional info: Chest pain TECHNIQUE: Imaging protocol: Radiologic exam of the chest. Views: 1 view. COMPARISON: CR XR chest 1V portable [id number] 02/10/2022 2:05 AM FINDINGS: Lungs: Findings of bronchitis improved compared with 02/10/2022. There is some minimal residual infiltrate at the right lung base. There is some mild atelectasis at the left lung base improved from previous. There is no pulmonary vascular congestion. Pleural spaces: There is moderate left pleural effusion. Heart/Mediastinum: Heart is within normal limits of size. Bones/joints: Unremarkable. XR/XR chest 1V portable [id number] IMPRESSION: 1. Findings of bronchitis improved compared with 02/10/2022. 2. Small residual left pleural effusion. 3. Mild residual infiltrate right lung base.
--- NOTE | 2022-02-26 19:19 | ECG_ITS ---
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 Measurements Intervals [place] Rate: 76 P: 8 MD: 148 QRS: 68 QRSD: 90 T: 121 QT: 371 QTc: 418 Interpretive Statements SINUS RHYTHM NONSPECIFIC ST & T-WAVE ABNORMALITY Compared to ECG 02/26/2022 19:02:45 T-wave abnormality now present Electronically Signed On 02-27-2022 16:39:09 CDT by Maame Montero M.D. [id number] f
--- NOTE | 2022-02-26 19:36 | ED_ITS ---
HPI - Chest Pain General: Chief Complaint: Chest Pain Stated Complaint: Chest pain, SOB, kidney pains Time Seen by Provider: 02/26/22 19:16 PFSH ED PFSH: Medical History (Updated 02/20/22 @ 00:01 by ) Acute hyperglycemia Acute kidney injury superimposed on chronic kidney disease Anemia Anxiety Arnold-Chiari malformation CAD (coronary artery disease) Celiac disease CHF (congestive heart failure), NYHA class III Chronic headache Complicated UTI (urinary tract infection) COVID-19 Cystitis Diabetic gastroparesis -continue Reglan Diabetic neuropathy associated with type 1 diabetes mellitus DKA (diabetic ketoacidoses) Drug abuse Esophagitis Headache, common migraine, intractable, with status migrainosus History of pancreatitis HTN (hypertension) Long-term insulin use Lymphadenitis Metabolic acidosis Migraine headache Neurogenic bladder Non-alcoholic fatty liver disease Pancreatitis PID (pelvic inflammatory disease) Pleural effusion 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 Pulmonary hypertension Pyelonephritis Recurrent UTI Respiratory failure Sepsis Tobacco dependence Transaminitis Type 1 diabetes mellitus Uncontrolled type 1 diabetes mellitus Ureterolithiasis Surgical History History of cholecystectomy History of endoscopy History of lung surgery -s/p LLL lobectomy secondary to cavitary pneumonia (2017) Family History Grandfather Diabetes Other Heart disease Hypertension Social History Smoking and tobacco status: current every day smoker cigarettes Packs smoked per day: 0.5 Second hand smoke exposure: Yes Alcohol intake: never Household members: children Housing: House Marital status: Single Current occupational status: unemployed Female Reproductive History: Date of last menstrual period: 07/24/21 Course Vital Signs: Vital signs: Vital Signs Temperature 98.2 F 02/26/22 18:55 Pulse Rate 75 02/26/22 18:55 Respiratory Rate 14 02/26/22 18:55 Blood Pressure 90/59 02/26/22 18:55 Pulse Oximetry 96 02/26/22 18:55 Oxygen Delivery Me thod 02/26/22 18:55 Discharge Plan Discharge Condition: Stable Prescriptions: No Action Glucagon (HCl) Emergency Kit 1 mg recon soln 1 mg SUBCUT Q20M PRN (Reason: hypoglycemia) Qty: 3 3RF Rx Instructions: until target blood sugar attained ondansetron 4 mg tablet,disintegrating 4 mg PO Q6H PRN (Reason: nausea and vomiting) Qty: 14 0RF Pepto-Bismol 262 mg Tablet 2 tab PO Q1H PRN (Reason: Heartburn) Rx Instructions: do not exceed 16 tabs per 24 hrs tamsulosin 0.4 mg capsule 0.4 mg PO BEDTIME pantoprazole 40 mg tablet,delayed release (DR/EC) 40 mg PO DAILY@12 albuterol sulfate 90 mcg/actuation HFA aerosol inhaler 2 puff inhalation Q8H PRN (Reason: shortness of breath or wheezing) atorvastatin 40 mg Tablet 20 mg PO BEDTIME 30 Days Qty: 30 0RF carvedilol 6.25 mg Tablet 3.125 mg PO BID 30 Days Qty: 30 0RF aspirin 81 mg Tablet,Delayed Release (Dr/Ec) 81 mg PO DAILY 30 Days Qty: 30 0RF gabapentin 100 mg Capsule 100 mg PO TID 30 Days Qty: 90 0RF Vitamin D2 1,250 mcg (50,000 unit) Capsule 50,000 unit PO Q7D 30 Days Qty: 5 0RF diphenhydramine HCl [Benadryl Allergy] 25 mg Tablet 25 mg PO BEDTIME insulin aspart U-100 [Novolog Flexpen U-100 Insulin] 100 unit/mL (3 mL) Insulin Pen See Rx Instructions .ROUTE .COMPLEX Rx Instructions: SLIDING SCALE subcutaneously TID furosemide 20 mg Tablet 20 mg PO DAILY@0800 PRN (Reason: Weight gain) Qty: 30 0RF insulin glargine [Lantus Solostar U-100 Insulin] 100 unit/mL (3 mL) insulin pen 15 unit SUBCUT BID Qty: 15 3RF Referrals: Elizabeth Dougherty FNP [Primary Care Provider] - Coding Level of Care Code ED Enrollment Management Manager for Reji Chandler
[2022-02-26] MEDS: sodium chloride 0.9% 1,000 ML 999 ML IV (20:07)
[2022-02-26] MEDS: morphine 4 mg/mL SDV 1 mL IVP (20:07)
[2022-02-26 20:10] LABS: Blood Urea Nitrogen 51 mg/dL (6-20); Calcium 9.1 mg/dL (8.5-10.5); Carbon Dioxide 21 mmol/L (22-29); Chloride 109 mmol/L (98-107); Glomerular Filtration Rate 25.4 mL/min (90-130); Glucose 130 mg/dL (65-115); Osmolality Calculated 305 mOsm/kg (285-295); Sodium 140 mmol/L (136-145)
[2022-02-26 20:13] LABS: Anion Gap 15.2 (5-19); Potassium 5.2 mmol/L (3.5-5.1)
[2022-02-26 21:02] LABS: Troponin(5th) Baseline 125 ng/L (0-10)
--- NOTE | 2022-02-26 21:27 | ECG_ITS ---
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 Measurements Intervals [place] Rate: 75 P: 68 NM: 159 QRS: 73 QRSD: 94 T: 127 QT: 362 QTc: 405 Interpretive Statements SINUS RHYTHM POSSIBLE LEFT ATRIAL ENLARGEMENT [-0.1mV P-WAVE IN V1/V2] NONSPECIFIC ST & T-WAVE ABNORMALITY Compared to ECG 02/26/2022 19:02:45 T-wave abnormality now present Electronically Signed On 02-27-2022 16:44:17 CDT by Maame Montero M.D. [id number]
[2022-02-26 21:32] LABS: Basophils # 0.1 10^3/uL (0.0-0.1); Basophils % 0.6 %; Eosinophils # 0.2 10^3/uL (0.0-0.8); Eosinophils % 1.7 %; Hematocrit 33.4 % (37.0-47.0); Hemoglobin 10.2 g/dL (11.5-15.3); Lymphocytes # 1.7 10^3/uL (0.8-4.8); Lymphocytes % 15.1 %; Mean Corpuscular HGB Conc 30.5 g/dL (30.0-36.0); Mean Corpuscular Hemoglobin 27.1 pg (28.0-34.0); Mean Corpuscular Volume 88.8 fl (81-99); Mean Platelet Volume 10.9 fL (7.4-10.4); Monocytes # 0.8 10^3/uL (0.2-0.9); Monocytes % 7.2 %; Neutrophils # 8.27 10^3/uL (1.8-7.7); Nucleated Red Blood Cells % 0 %; Platelet Count 236 10^3/cmm (130-400); Red Blood Count 3.76 10^6/uL (4.1-5.3); Red Cell Distribution Width 15.7 % (12.1-15.1)
--- NOTE | 2022-02-26 21:36 | PM.HP ---
Providers/Chief Complaint Primary Care Provider: SUZANNE Dias Chief Complaint: Chest pain, SOB, kidney pains History of Present Illness Donita Aguilar is a 36 year old female with history of polysubstance abuse, insulin-dependent diabetes, has had multiple admissions in the past related to COVID-19, CHF exacerbation, acute on chronic kidney disease, presented today with chief complaint of unstable angina. She was recently discharged from the hospital after negative stress test, her troponins were pretty remarkable at that time, cardiac cath could not be pursued because of her abnormal kidney function. Nephrology was consulted who deemed her ERICA related to obstructive uropathy however there was no clear senses regarding her kidney injury in the differential if there was septic emboli, cardiorenal syndrome, COVID-related nephropathy. Patient is stating that in last 3 days she has been experiencing on and off chest pain which she is describing as extreme heaviness like someone is sitting on her chest which would last for at least a few seconds, there is no aggravating or relieving factors, it is associate with some nausea and dry heaves, no fever, diarrhea strokelike symptoms, UTI, her p.o. intake has been poor her urine is extremely concentrated as per the patient. In the ER EKG is not showing new or infarctive ischemic changes Troponin is 125, previous troponin was 354 Cardiology recommended observation, monitor kidney function if it is better then will pursue cardiac cath I have given her Kayexalate and culture gluconate for hyperkalemia Started on heparin drip and gentle fluid hydration Review of Systems Const: Reports: body aches and fatigue; Denies: fever(s) Eyes: Denies: change in vision ENMT: Denies: throat pain Card: Reports: chest pain and dyspnea on exertion Resp: Reports: dyspnea GI: Reports: nausea and vomiting; Denies: abdominal pain : Denies: flank pain Musc: Denies: neck pain Skin/Breast: Denies: rash Neuro: Denies: headache(s) Psych: Reports: anxiety Endo: Denies: polyuria Ramiro/Lymph: Denies: easy bruising All/Imm: Denies: urticaria Medications/Allergies Home Medications Medication Instructions Recorded Confirmed Last Taken Type glucagon HCl 1 mg solution for 1 mg SUBCUT Q20M PRN hypoglycemia 08/22/20 02/26/22 Unknown Rx injection (Glucagon (HCl) #3 ea Emergency Kit) diphenhydramine HCl 25 mg tablet 25 mg PO BEDTIME 01/22/22 02/26/22 02/25/22 History (Benadryl Allergy) insulin aspart U-100 100 unit/mL See Rx Instructions .Route .COMPLEX 01/22/22 02/26/22 02/07/22 History (3 mL) subcutaneous pen (Novolog 6 units Flexpen U-100 Insulin aspart) ondansetron 4 mg disintegrating 4 mg PO Q6H PRN nausea and 01/25/22 02/26/22 Unknown Rx tablet vomiting #14 tabs furosemide 20 mg tablet 20 mg PO DAILY@0800 PRN Weight 01/29/22 02/26/22 02/26/22 Rx gain #30 tabs insulin glargine 100 unit/mL (3 15 unit (0.15 mL) SUBCUT BID #15 mL 01/29/22 02/26/22 02/25/22 Rx mL) subcutaneous pen (Lantus Solostar U-100 Insulin) albuterol sulfate 90 mcg/actuation 2 puff inhalation Q8H PRN 02/07/22 02/26/22 Unknown History aerosol inhaler shortness of breath or wheezing bismuth subsalicylate 262 mg 2 tab PO Q1H PRN Heartburn 02/07/22 02/26/22 02/07/22 History tablet (Pepto-Bismol) pantoprazole 40 mg tablet,delayed 40 mg PO DAILY@12 02/07/22 02/26/22 02/26/22 History release tamsulosin 0.4 mg capsule 0.4 mg PO BEDTIME 02/07/22 02/26/22 02/25/22 History aspirin 81 mg tablet,delayed 81 mg PO DAILY 30 days #30 tabs 02/19/22 02/26/22 02/26/22 Rx release atorvastatin 40 mg tablet 20 mg PO BEDTIME 30 days #30 tabs 02/19/22 02/26/22 02/25/22 Rx carvedilol 6.25 mg tablet 3.125 mg PO BID 30 days #30 tabs 02/19/22 02/26/22 02/26/22 Rx ergocalciferol (vitamin D2) 1,250 50,000 unit PO Q7D 30 days #5 caps 02/19/22 02/26/22 02/26/22 Rx mcg (50,000 unit) capsule (Vitamin D2) gabapentin 100 mg capsule 100 mg PO TID 30 days #90 caps 02/19/22 02/26/22 02/26/22 Rx Allergies Allergy/AdvReac Type Severity Reaction Status Date / Time acetaminophen AdvReac Mild ADR-Gastrointestinal Verified 02/20/22 13:29 Upset PFSH Acute PFSH: Medical History Acute hyperglycemia Acute kidney injury superimposed on chronic kidney disease Anemia Anxiety Arnold-Chiari malformation CAD (coronary artery disease) Celiac disease CHF (congestive heart failure), NYHA class III Chronic headache Complicated UTI (urinary tract infection) COVID-19 Cystitis Diabetic gastroparesis -continue Reglan Diabetic neuropathy associated with type 1 diabetes mellitus DKA (diabetic ketoacidoses) Drug abuse Esophagitis Headache, common migraine, intractable, with status migrainosus History of pancreatitis HTN (hypertension) Long-term insulin use Lymphadenitis Metabolic acidosis Migraine headache Neurogenic bladder Non-alcoholic fatty liver disease Pancreatitis PID (pelvic inflammatory disease) Pleural effusion 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 Pulmonary hypertension Pyelonephritis Recurrent UTI Respiratory failure Sepsis Tobacco dependence Transaminitis Type 1 diabetes mellitus Uncontrolled type 1 diabetes mellitus Ureterolithiasis Surgical History History of cholecystectomy History of endoscopy History of lung surgery -s/p LLL lobectomy secondary to cavitary pneumonia (2017) Family History Grandfather Diabetes Other Heart disease Hypertension Social History Smoking and tobacco status: current every day smoker cigarettes Packs smoked per day: 0.5 Second hand smoke exposure: Yes Alcohol intake: never Household members: children Housing: House Marital status: Single Current occupational status: unemployed Female Reproductive History: Date of last menstrual period: 07/24/21 Vitals/I&O/Wt Last Vital Signs Temp 98.2 F 02/26/22 18:55 Pulse 75 02/26/22 20:13 Resp 14 02/26/22 20:13 BP 111/73 02/26/22 20:13 Pulse Ox 99 02/26/22 20:13 O2 Del Method 02/26/22 20:13 Weight last 48 hrs Weight 63.503 kg Physical Exam Narrative: Pleasant cooperative female Currently looks dehydrated No active chest pain No active shortness of breath Currently on room air Lungs are clear to auscultation Abdomen soft No signs of edema of legs Anticoagulant Nonfocal neuro exam Appropriate mood and affect No sign of cellulitis Data : 02/26/22 20:10 02/26/22 19:30 A&P Assessment and plan (1) Unstable angina: Status: Acute (2) Acute kidney injury superimposed on chronic kidney disease: Status: Acute (3) Elevated troponin: Status: Acute (4) NSTEMI (non-ST elevated myocardial infarction): Status: Acute (5) Pulmonary hypertension: Status: Acute (6) Neurogenic bladder: Status: Acute (7) Long-term insulin use: Status: Acute (8) Diabetic gastroparesis: Status: Acute Plan Unstable angina Recent stress test was unremarkable She does have significant troponin leakage EF slightly reduced She will need cardiac angiogram However kidney function is not stable to go for angiogram at this point, her urine is concentrated, Clinically patient looks dehydrated I will give her IV fluid hydration at 100 mL/h Keep her n.p.o. in case her creatinine improves by tomorrow Dr. Montero has been consulted Significant troponin leak NSTEMI protocol I will start her on heparin drip Patient is full code N.p.o. 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
--- NOTE | 2022-02-26 21:56 | W.ED.GENADLT ---
HPI - General Adult General: Chief complaint: Chest Pain Stated complaint: Chest pain, SOB, kidney pains Time Seen by Provider: 02/26/22 19:16 History of Present Illness: Patient is a 36-year-old female history of CHF with EF of 40 to 45% presenting to the emergency with complaints of chest pain for the last 3 days. Patient was recently mid to the hospital on 02/14/2022 for acute kidney injury and dyspnea. Patient had a stress test 02/19/2022 which was unremarkable. Patient has been followed by Dr. Montero. Initially, the plan was to have patient undergo cath study. However due to ongoing kidney injury, decision was made to do a stress test. Since discharge from the hospital on 02/19, patient continues to have intermittent chest pain now acutely worsening the last 3 days. Patient reports exertional chest pain and chest pain at rest. Patient denies any pleuritic chest pain, cough, runny nose sore throat, abdominal pain, diarrhea melena/hematochezia. Patient complains of right flank pain. Patient has an ongoing Sanders catheter that was placed since previous admission. Onset:3 days of chest pain Duration:ongoing Location:home Severity:moderate Associated symptoms: Reports chest pain; Deny dyspnea, nausea, rash, palpitations or vomiting Review of Systems Const: Denies: fever(s) or chills Eyes: Denies: change in vision ENMT: Denies: mouth pain Card: Reports: chest pain and dyspnea on exertion; Denies: palpitations Resp: Denies: dyspnea or non-productive cough GI: Denies: abdominal pain, nausea, vomiting or diarrhea : Denies: dysuria Musc: Denies: extremity pain Skin/Breast: Denies: rash or new lesions Neuro: Denies: weakness in extremities Psych: Reports: other (Normal mood) Ramiro/Lymph: Denies: easy bruising PFSH ED PFSH: Medical History Acute hyperglycemia Acute kidney injury superimposed on chronic kidney disease Anemia Anxiety Arnold-Chiari malformation CAD (coronary artery disease) Celiac disease CHF (congestive heart failure), NYHA class III Chronic headache Complicated UTI (urinary tract infection) COVID-19 Cystitis Diabetic gastroparesis -continue Reglan Diabetic neuropathy associated with type 1 diabetes mellitus DKA (diabetic ketoacidoses) Drug abuse Esophagitis Headache, common migraine, intractable, with status migrainosus History of pancreatitis HTN (hypertension) Long-term insulin use Lymphadenitis Metabolic acidosis Migraine headache Neurogenic bladder Non-alcoholic fatty liver disease Pancreatitis PID (pelvic inflammatory disease) Pleural effusion 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 Pulmonary hypertension Pyelonephritis Recurrent UTI Respiratory failure Sepsis Tobacco dependence Transaminitis Type 1 diabetes mellitus Uncontrolled type 1 diabetes mellitus Ureterolithiasis Surgical History History of cholecystectomy History of endoscopy History of lung surgery -s/p LLL lobectomy secondary to cavitary pneumonia (2017) Family History Grandfather Diabetes Other Heart disease Hypertension Social History Smoking and tobacco status: current every day smoker cigarettes Packs smoked per day: 0.5 Second hand smoke exposure: Yes Alcohol intake: never Household members: children Housing: House Marital status: Single Current occupational status: unemployed Female Reproductive History: Date of last menstrual period: 07/24/21 Physical Exam Const: COMMON NORMALS: alert HENMT: COMMON NORMALS: atraumatic HEAD & SCALP: atraumatic MOUTH: moist mucous membranes not abnormal Eye: COMMON NORMALS: EOMs intact bilaterally and conjunctivae normal CONJUNCTIVA: Yes conjunctivae normal Neck/C-Spine: COMMON NORMALS: full ROM and supple Resp: COMMON NORMALS: normal respiratory effort and clear to auscultation bilaterally AUSCULTATION: clear to auscultation bilaterally Cardio: COMMON NORMALS: regular rate RATE: regular rate GI: COMMON NORMALS: Soft to palpation and non-tender PALPATION: Yes Soft to palpation OTHER: No focal TTP. NO guarding rebound, guarding, rigidity. +Mild R CVA tenderness to percussion. Neg Howell/Neg McBurney's point tenderness, no suprabupic tenderness to palpation. Extremity: COMMON NORMALS: full ROM Neuro: SENSORIUM/ORIENTATION: Yes alert MOTOR EXAM: No Abnormal motor strength present and Other motor observations present (no focal motor deficits) Psych: COMMON NORMALS: speech normal SPEECH: Yes normal speech MOOD & AFFECT: Yes euthymic mood Course Vital Signs: Vital signs: Vital Signs Temperature 98.0 F 03/03/22 18:40 Pulse Rate 17 L 03/03/22 18:40 Respiratory Rate 16 03/03/22 18:40 Blood Pressure 136/93 03/03/22 18:40 Pulse Oximetry 94 03/03/22 18:40 Oxygen Delivery Me thod 03/03/22 16:00 MDM - General Adult Medical Decision Making 36-year-old male with history of CHF with EF of 40 to 45% presenting to the emergency room with 3 days of worsening chest pain. On physical exam, patient is hemodynamically stable. +R CVA tendneress ot plapation. UA pending. EKG did not show any signs of ST elevations. Patient has troponin of 125 initially on arrival. Creatinine of 2.2 today. Patient received 40 mg of Lasix in the ER. I discussed case with Dr. Montero who recommended patient for observation to see if we can have any creatinine improvement to see if the patient is candidate for cardiac cath. Disposition: admission Lab Data : 03/03/22 04:15 03/03/22 04:15 Radiology Impressions Chest X-Ray 02/26/22 19:16 IMPRESSION: 1. Findings of bronchitis improved compared with 02/10/2022. 2. Small residual left pleural effusion. 3. Mild residual infiltrate right lung base. Laboratory Results WBC 11.0 10^3/uL (4.0-10.0) H 02/26/22 20:10 Corrected WBC Cancelled 02/26/22 19:30 RBC 3.76 10^6/uL (4.1-5.3) L 02/26/22 20:10 Hgb 10.2 g/dL (11.5-15.3) L 02/26/22 20:10 Hct 33.4 % (37.0-47.0) L 02/26/22 20:10 MCV 88.8 fl (81-99) 02/26/22 20:10 MCH 27.1 pg (28.0-34.0) L 02/26/22 20:10 MCHC 30.5 g/dL (30.0-36.0) 02/26/22 20:10 RDW 15.7 % (12.1-15.1) H 02/26/22 20:10 Plt Count 236 10^3/cmm (130-400) 02/26/22 20:10 MPV 10.9 fL (7.4-10.4) H 02/26/22 20:10 Gran % Cancelled 02/26/22 19:30 Neut % (Auto) 75.0 % 02/26/22 20:10 Lymph % (Auto) 15.1 % 02/26/22 20:10 [place] % (Auto) 7.2 % 02/26/22 20:10 Eos % (Auto) 1.7 % 02/26/22 20:10 Baso % (Auto) 0.6 % 02/26/22 20:10 Neut # (Auto) 8.27 10^3/uL (1.8-7.7) H 02/26/22 20:10 Lymph # (Auto) 1.7 10^3/uL (0.8-4.8) 02/26/22 20:10 [place] # (Auto) 0.8 10^3/uL (0.2-0.9) 02/26/22 20:10 Eos # (Auto) 0.2 10^3/uL (0.0-0.8) 02/26/22 20:10 Baso # (Auto) 0.1 10^3/uL (0.0-0.1) 02/26/22 20:10 Absolute Gran (auto) Cancelled 02/26/22 19:30 Nucleated RBC % (auto) 0 % 02/26/22 20:10 Nucleated RBCs # 0.0 /100WBC 02/26/22 20:10 Sodium 140 mmol/L (136-145) 02/26/22 19:30 Potassium 5.2 mmol/L (3.5-5.1) H 02/26/22 19:30 Chloride 109 mmol/L (98-107) H 02/26/22 19:30 Carbon Dioxide 21 mmol/L (22-29) L 02/26/22 19:30 Anion Gap 15.2 (5-19) 02/26/22 19:30 BUN 51 mg/dL (6-20) H 02/26/22 19:30 Creatinine 2.2 mg/dL (0.5-0.9) H 02/26/22 19:30 GFR Calculation 25.4 mL/min (90-130) L 02/26/22 19:30 Glucose 130 mg/dL (65-115) H 02/26/22 19:30 Calculated Osmolality 305 mOsm/kg (285-295) H 02/26/22 19:30 Calcium 9.1 mg/dL (8.5-10.5) 02/26/22 19:30 Troponin T Baseline 125 ng/L (0-10) H* 02/26/22 20:10 NT-Pro-B Natriuret Pep 03044 pg/mL (0-125) H 02/26/22 20:10 Urine Opiates Screen Positive ng/mL (Negative) H 02/26/22 21:30 Ur Barbiturates Screen Negative ng/mL (Negative) 02/26/22 21:30 Ur Phencyclidine Scrn Negative ng/mL (Negative) 02/26/22 21:30 Ur Amphetamines Screen Negative ng/mL (Negative) 02/26/22 21:30 U Benzodiazepines Scrn Negative ng/mL (Negative) 02/26/22 21:30 Urine Cocaine Screen Negative ng/mL (Negative) 02/26/22 21:30 U Marijuana (THC) Screen Negative ng/mL (Negative) 02/26/22 21:30 Imaging Data Other Imaging: Radiologist's impression: [address] [address] XRay Report Signed Patient: Donita Aguilar Unit #: [id number] : 1985 Age/Sex: 36 / F ADM Date: 02/26/22 Loc: ER Room/Bed: Attending Dr: Ordering Provider/Ordering MD: Jacklyn Laurent MD Date of Service: 02/26/22 Procedure(s): XR chest 1V portable [id number] Accession Number(s): [id number] Report Number: [id number] PROCEDURE INFORMATION: Exam: XR Chest Exam date and time: 02/26/2022 8:02 PM Age: 36 years old Clinical indication: Pain; Chest pressure; Additional info: Chest pain TECHNIQUE: Imaging protocol: Radiologic exam of the chest. Views: 1 view. COMPARISON: CR XR chest 1V portable [id number] 02/10/2022 2:05 AM FINDINGS: Lungs: Findings of bronchitis improved compared with 02/10/2022. There is some minimal residual infiltrate at the right lung base. There is some mild atelectasis at the left lung base improved from previous. There is no pulmonary vascular congestion. Pleural spaces: There is moderate left pleural effusion. Heart/Mediastinum: Heart is within normal limits of size. Bones/joints: Unremarkable. XR/XR chest 1V portable [id number] IMPRESSION: 1. Findings of bronchitis improved compared with 02/10/2022. 2. Small residual left pleural effusion. 3. Mild residual infiltrate right lung base. ? Dictated By: Sanjeev Tao Signed By: Sanjeev Tao Signed Date/Time: 02/26/222031 DD/ 01 Discharge Plan Discharge Patient Disposition: Admitted As Inpatient Admit Provider: Austin Che Clinical Impression: Acute kidney injury superimposed on chronic kidney disease, Chest pain, Elevated troponin Condition: Stable Coding Level of Care Code ED Evaporator Supervisor for g Fwd Exam Comprehensive
[2022-02-26] MEDS: calcium gluconate 0.9% NaCL 1 GM/50 ML PREMIX IV (22:03)
[2022-02-26] MEDS: sodium polystyrene sulfonate 15 gm/60 mL Btl PO (22:03)
[2022-02-26 22:10] LABS: Troponin 5 2HR Delta -13.7 ABS# (0-10)
[2022-02-26 22:11] LABS: Troponin 5 2HR 111.3 ng/L (0-10)
[2022-02-26 22:30] LABS: Amphetamines Screen Urine Negative (Negative); Barbiturates Screen Urine Negative (Negative); Benzodiazepines Screen Urine Negative (Negative); Cocaine Screen Urine Negative (Negative); Opiate Screen Urine Positive (Negative); PCP Screen Urine Negative (Negative); THC Screen Urine Negative (Negative)
[2022-02-27] VITALS (15 sets, daily range): BP systolic 78–158; BP diastolic 49–91; PULSE 50–76; RESP 16–20; TEMP 36.5–37.4; O2SAT 92–99
--- NOTE | 2022-02-27 01:42 | ECG_ITS ---
[facility] Test Date: 2022-02-27 Pat Name: Donita Aguilar Department: Room: 278 Gender: Female General Duty Nurse: : 1985 Requested By: Jacklyn Laurent Order Number: [id number] Faviola MD: Maame Montero M.D. Measurements Intervals [place] Rate: 78 P: 66 ME: 172 QRS: 61 QRSD: 98 T: 116 QT: 364 QTc: 415 Interpretive Statements SINUS RHYTHM Compared to ECG 02/26/2022 21:27:22 T-wave abnormality no longer present Electronically Signed On 02-27-2022 16:43:58 CDT by Maame Montero M.D. [id number]
[2022-02-27] MEDS: FUROsemide 10 mg/mL SDV 4mL 40 MG IVP (01:44)
[2022-02-27] MEDS: sodium chloride 0.9% 1,000 ML 100 ML IV ×3 (01:47→22:45)
[2022-02-27] MEDS: morphine IR 15 mg Tablet PO ×3 (01:53→16:11)
[2022-02-27] MEDS: heparin drip 25,000 UNIT/500 ML PREMIX 17 UNIT IV (02:51)
[2022-02-27] MEDS: heparin 5,000 unit/mL INJ 1 mL IV ×3 (02:56→18:12)
[2022-02-27 03:14] LABS: Anion Gap 16.7 (5-19); Blood Urea Nitrogen 47 mg/dL (6-20); C Reactive Protein 28.9 mg/L (0.0-4.9); Calcium 9.5 mg/dL (8.5-10.5); Carbon Dioxide 19 mmol/L (22-29); Chloride 111 mmol/L (98-107); Glomerular Filtration Rate 25.4 mL/min (90-130); Glucose 127 mg/dL (65-115); Magnesium 1.4 mg/dL (1.7-2.3); Osmolality Calculated 308 mOsm/kg (285-295); Phosphorus 5.2 mg/dL (2.5-4.5); Potassium 4.7 mmol/L (3.5-5.1); Sodium 142 mmol/L (136-145)
[2022-02-27 05:08] LABS: Basophils # 0.1 10^3/uL (0.0-0.1); Basophils % 0.6 %; Eosinophils # 0.2 10^3/uL (0.0-0.8); Eosinophils % 2.1 %; Hematocrit 28.3 % (37.0-47.0); Hemoglobin 8.6 g/dL (11.5-15.3); Lymphocytes # 1.5 10^3/uL (0.8-4.8); Mean Corpuscular HGB Conc 30.4 g/dL (30.0-36.0); Mean Platelet Volume 11.8 fL (7.4-10.4); Monocytes # 0.7 10^3/uL (0.2-0.9); Monocytes % 6.2 %; Neutrophils # 8.28 10^3/uL (1.8-7.7); Neutrophils % 76.7 %; Nucleated Red Blood Cells % 0 %; Platelet Count 158 10^3/cmm (130-400); Red Blood Count 3.18 10^6/uL (4.1-5.3); Red Cell Distribution Width 15.7 % (12.1-15.1); White Blood Count 10.8 10^3/uL (4.0-10.0)
[2022-02-27 06:25] LABS: Glucose Point of Care 139 mg/dL (70-110)
[2022-02-27] MEDS: aspirin 81 mg EC Tablet PO (08:46)
[2022-02-27] MEDS: carvedilol 6.25 mg Tablet 3.125 MG PO ×2 (08:46→17:10)
[2022-02-27] MEDS: clopidogrel 75 mg Tablet PO (08:46)
[2022-02-27] MEDS: magnesium sulfate premix 2 GM/50 ML PIGGYBACK IV (08:48)
[2022-02-27] MEDS: ondansetron 2 mg/ML SDV 2 mL 4 MG IVP (08:57)
[2022-02-27 09:38] LABS: Partial Thromboplastin Time 36.7 SECONDS (23.9-36.7)
--- NOTE | 2022-02-27 10:02 | PM.PN ---
Subjective Subjective: Donita reports she is doing okay this morning. History and physical reviewed. She denies any significant chest discomfort currently. She reports she is not short of breath currently. Medications: Reviewed: Yes Vitals/I&O/Wt Last Vital Signs Temp 97.7 F 02/27/22 08:00 Pulse 76 02/27/22 08:00 Resp 18 02/27/22 09:08 BP 158/90 02/27/22 08:00 Pulse Ox 92 02/27/22 08:00 O2 Del Method 02/27/22 08:00 02/26/22 02/27/22 02/27/22 22:59 06:59 14:59 Intake Total 1000 / 1000 120 / 1120 703.333 / 703.333 Output Total 1625 / 1625 Balance 1000 / 1000 -1505 / -505 703.333 / 703.333 Weight last 48 hrs Weight 63.503 kg Physical Exam Narrative: General exam is a white female, laying flat in bed, reporting she is not short of breath Neck is supple no lymphadenopathy thyromegaly Cardiovascular regular rate and rhythm with a 2/6 systolic murmur Lungs clear no wheezing or crackles Abdomen is soft with positive bowel sounds Extremities no cyanosis clubbing or edema Skin no rash Data : 02/27/22 04:32 02/27/22 02:30 A&P Assessment and plan (1) Unstable angina: Patient presents with recurrent chest discomfort. Troponin is elevated Continue heparin drip, aspirin, statin, beta-marii, Plavix Await cardiology consultation Status: Acute (2) Acute kidney injury superimposed on chronic kidney disease: Continue hydration Monitor renal function for improvement Reduce fluids slightly. Note that last hospital stay she developed pulmonary edema. 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
--- NOTE | 2022-02-27 10:03 | P.CONIM_ITS ---
Providers/Reason For Consult Consulting Physician/Specialty*: Dr. Montero, Cardiology Reason for Consult*: Chest pain Attending Physician: Ruben Rust MD Primary Care Provider: SUZANNE Dias History of Present Illness History of Present Illness Donita Aguilar is a 36 year old female with past medical history of poorly controlled type 1 diabetes mellitus, diabetic gastroparesis, history of methamphetamine use (used to smoke, last use 2-1/2 months ago per patient) recen t COVID-19 pneumonia, history of left lower lobectomy for cavitary pneumonia was hospitalized with complaints of shortness of breath as well as chest chest tightness when laying down and was hospitalized from 02/10-02/19. ?She was diuresed with IV Lasix for pulmonary edema as well as treated for COPD exacerbation.? Her echocardiogram showed mildly reduced left vent systolic function of 40 to 45% with moderate hypokinesis of mid to apical anterior and anterolateral espinosa.?? EKG showed sinus tachycardia with right axis deviation and ST and T depression and T wave inversion in lead to 3 aVF V5 and V6.? Troponin T 354 at 2 hours 351 and at 6 hours 365.? She underwent stress test given her renal function. Stress test showed Medium sized perfusion abnormality of mid to apical anterior, apical septal and basal to mid inferior espinosa with subtle reversibility in apical anterior and apical septal espinosa. This may represent attenuation artifact in abscence of prone imaging or old MS in RCA/LAD artery territory with subtle nina-infarct ischemia. She was discharged home on medical management. She presented yesterday (Saturday) with c/o cheat pain described as heaviness retrosternal in location 10/10 in severity that lasted on and off the whole day wih N/V and inability to take full breath. Chest tightness mild on Saturday, generalized weakness and bodyache on Saturday. No new EKG chagnes. Troponin T 125--> 111-->114. CXR with mild residual R lung infiltrate and small L pleural effusion. Cr 2.2 <-- 1.9 on discharge. She was started on heparin gtt. Review of Systems Const: Reports: body aches; Denies: fever(s) or chills Eyes: Denies: change in vision ENMT: Denies: mouth pain or epistaxis Card: Reports: chest pain and dyspnea on exertion; Denies: palpitations Resp: Denies: dyspnea or non-productive cough GI: Denies: abdominal pain, nausea, vomiting, diarrhea or hematochezia : Denies: dysuria or hematuria Musc: Denies: extremity pain Skin/Breast: Denies: rash or new lesions Neuro: Denies: weakness in extremities Psych: Reports: other (Normal mood and affect) Ramiro/Lymph: Denies: easy bruising Medications/Allergies Home Medications Medication Instructions Recorded Confirmed Last Taken Type glucagon HCl 1 mg solution for 1 mg SUBCUT Q20M PRN hypoglycemia 08/22/20 02/26/22 Unknown Rx injection (Glucagon (HCl) #3 ea Emergency Kit) diphenhydramine HCl 25 mg tablet 25 mg PO BEDTIME 01/22/22 02/26/22 02/25/22 History (Benadryl Allergy) insulin aspart U-100 100 unit/mL See Rx Instructions .Route .COMPLEX 01/22/22 02/26/22 02/07/22 History (3 mL) subcutaneous pen (Novolog 6 units Flexpen U-100 Insulin aspart) ondansetron 4 mg disintegrating 4 mg PO Q6H PRN nausea and 01/25/22 02/26/22 Unknown Rx tablet vomiting #14 tabs furosemide 20 mg tablet 20 mg PO DAILY@0800 PRN Weight 01/29/22 02/26/22 02/26/22 Rx gain #30 tabs insulin glargine 100 unit/mL (3 15 unit (0.15 mL) SUBCUT BID #15 mL 01/29/22 02/26/22 02/25/22 Rx mL) subcutaneous pen (Lantus Solostar U-100 Insulin) albuterol sulfate 90 mcg/actuation 2 puff inhalation Q8H PRN 02/07/22 02/26/22 Unknown History aerosol inhaler shortness of breath or wheezing bismuth subsalicylate 262 mg 2 tab PO Q1H PRN Heartburn 02/07/22 02/26/22 02/07/22 History tablet (Pepto-Bismol) pantoprazole 40 mg tablet,delayed 40 mg PO DAILY@12 02/07/22 02/26/22 02/26/22 History release tamsulosin 0.4 mg capsule 0.4 mg PO BEDTIME 02/07/22 02/26/22 02/25/22 History aspirin 81 mg tablet,delayed 81 mg PO DAILY 30 days #30 tabs 02/19/22 02/26/22 02/26/22 Rx release atorvastatin 40 mg tablet 20 mg PO BEDTIME 30 days #30 tabs 02/19/22 02/26/22 02/25/22 Rx carvedilol 6.25 mg tablet 3.125 mg PO BID 30 days #30 tabs 02/19/22 02/26/22 02/26/22 Rx ergocalciferol (vitamin D2) 1,250 50,000 unit PO Q7D 30 days #5 caps 02/19/22 02/26/22 02/26/22 Rx mcg (50,000 unit) capsule (Vitamin D2) gabapentin 100 mg capsule 100 mg PO TID 30 days #90 caps 02/19/22 02/26/22 02/26/22 Rx Allergies Allergy/AdvReac Type Severity Reaction Status Date / Time acetaminophen AdvReac Mild ADR-Gastrointestinal Verified 02/20/22 13:29 Upset Current Medications Generic Name Dose Route Start Last Admin Trade Name Jan PRN Reason Stop Dose Admin Aspirin 81 mg 02/27/22 09:00 02/27/22 08:46 Aspirin 81 Mg Ec Tablet PO 81 mg DAILY SHAY Administration Carvedilol 3.125 mg 02/27/22 09:00 02/27/22 08:46 Carvedilol 6.25 Mg Tablet PO 3.125 mg BID SHAY Administration Clopidogrel Bisulfate 75 mg 02/27/22 09:00 02/27/22 08:46 Clopidogrel 75 Mg Tablet PO 75 mg DAILY SHAY Administration Heparin Sodium (Porcine) 0 unit 02/26/22 22:44 02/27/22 02:56 Heparin 5,000 Unit/Ml Inj 1 Ml IV 3,000 unit PRN PRN Administration Heparin weight-base protocol Protocol Sodium Chloride 1,000 mls @ 100 mls/hr 02/26/22 22:44 02/27/22 08:49 Sodium Chloride 0.9% IV 100 mls/hr .Q10H SHAY Administration Heparin Sodium/Sodium Chloride 25,000 unit in 500 mls @ 0 mls/hr 02/26/22 22:44 02/27/22 02:51 Heparin Drip IV 13.39 unit/kg/hr .Q0M SHAY 17 mls/hr Administration Protocol Per Protocol Insulin Human Lispro 0 unit 02/27/22 08:00 02/27/22 07:38 Insulin Lispro 100 Unit/1 Ml SUBCUT Not Given [facility] Protocol Morphine Sulfate 15 mg 02/26/22 21:41 02/27/22 09:08 Morphine Ir 15 Mg Tablet PO 15 mg Q6H PRN Administration pAIN Ondansetron HCl 4 mg 02/26/22 21:41 02/27/22 08:57 Ondansetron 2 Mg/Ml Sdv 2 Ml IVP 4 mg Q6H PRN Administration NAUSEA AND VOMITING Senna/Docusate Sodium 1 tab 02/27/22 09:00 02/27/22 08:45 Sennosides-Docusate Tablet PO Not Given DAILY SHAY PFSH Acute PFSH: Medical History Acute hyperglycemia Acute kidney injury superimposed on chronic kidney disease Anemia Anxiety Arnold-Chiari malformation CAD (coronary artery disease) Celiac disease CHF (congestive heart failure), NYHA class III Chronic headache Complicated UTI (urinary tract infection) COVID-19 Cystitis Diabetic gastroparesis -continue Reglan Diabetic neuropathy associated with type 1 diabetes mellitus DKA (diabetic ketoacidoses) Drug abuse Esophagitis Headache, common migraine, intractable, with status migrainosus History of pancreatitis HTN (hypertension) Long-term insulin use Lymphadenitis Metabolic acidosis Migraine headache Neurogenic bladder Non-alcoholic fatty liver disease Pancreatitis PID (pelvic inflammatory disease) Pleural effusion 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 Pulmonary hypertension Pyelonephritis Recurrent UTI Respiratory failure Sepsis Tobacco dependence Transaminitis Type 1 diabetes mellitus Uncontrolled type 1 diabetes mellitus Ureterolithiasis Surgical History History of cholecystectomy History of endoscopy History of lung surgery -s/p LLL lobectomy secondary to cavitary pneumonia (2017) Family History Grandfather Diabetes Other Heart disease Hypertension Social History Smoking and tobacco status: current every day smoker cigarettes Packs smoked per day: 0.5 Second hand smoke exposure: Yes Alcohol intake: never Household members: children Housing: House Marital status: Single Current occupational status: unemployed Female Reproductive History: Date of last menstrual period: 07/24/21 Vitals/I&O/Wt Last Vital Signs Temp 97.7 F 02/27/22 08:00 Pulse 76 02/27/22 08:00 Resp 18 02/27/22 09:08 BP 158/90 02/27/22 08:00 Pulse Ox 92 02/27/22 08:00 O2 Del Method 02/27/22 08:00 02/26/22 02/27/22 02/27/22 22:59 06:59 14:59 Intake Total 1000 / 1000 120 / 1120 703.333 / 703.333 Output Total 1625 / 1625 Balance 1000 / 1000 -1505 / -505 703.333 / 703.333 Weight last 48 hrs Weight 140 lb Physical Exam Narrative: GENERAL: Averagely built and averagely nourished in no acute distress HEENT: Extraocular movement intact. ? No pallor or icterus. NECK: No JVD,? No carotid bruit. CARDIOVASCULAR SYSTEM: S1-S2 regular.? No murmur? or gallops. RESPIRATORY SYSTEM: Chest clear to auscultation except at bases.? No wheezes rhonchi or rubs heard. No use of accessory muscles. ABDOMEN: Soft, nontender and nondistended.? Normal bowel sounds present.? EXTREMITIES: No cyanosis or clubbing. No edema.? No signs of chronic venous insufficiency. 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 No focal neurological deficits.? Data : 02/27/22 04:32 02/27/22 02:30 Other data: Lexiscan sestamibi MPI (02/19/22) IMPRESSIONS ?1. Medium sized perfusion abnormality of mid to apical anterior, apical septal ?and basal to mid inferior espinosa with subtle reversibility in apical anterior ?and apical septal espinosa. ?2. This may represent attenuation artifact in abscence of prone imaging or old ?MS in RCA/LAD artery territory with subtle nina-infarct ischemia. ?3. The left ventricular ejection fraction is moderately reduced with a value of ?40%. ?4. There seems to be hypokinesis of septum, apical septal, apical inferior and ?apical lateral espinosa. ?5. No prior similar studies to compare. TTE (02/13/22) ?CONCLUSIONS ?This is a limited echocardiogram. ?LV systolic function is mildly reduced with EF of 40 to 45%.? ?Moderate hypokinesis of mid to apical anterior and anterolateral ?espinosa. ?Right ventricle is normal in size and function. ?No gross valvular structural abnormalities seen.? Doppler exam ?not done for all valves. Mild tricuspid and mitral regurgitation ?Trace pericardial effusion ?Compared to prior echocardiogram from 01/26/2022, LV systolic ?function has decreased slightly. A&P Assessment and plan (1) Chest pain: Worsening chest pain -Currently on heparin gtt for NSTE-ACS. May continue for now -Plan for LHC based on her renal function. -recommend decreasing IVF to 50 cc/hr -On ASA, plavix, statin and beta marii Risks and benefits were discussed with the patients. Possible complications including high risk of renal failure, dialysis, risk of heart attack stroke and , coronary perforation, arrhythmia, cardiac tamponade in urgent CABG were discussed with the patient as well. Status: Acute (2) Elevated troponin: Downtrending Status: Acute (3) Acute kidney injury superimposed on chronic kidney disease: Status: Acute (4) CHF (congestive heart failure), NYHA class III: LVEF=40% Status: Acute Qualifiers: Congestive heart failure type: systolic Congestive heart failure chronicity: acute on chronic Qualified Code(s): I50.23 - Acute on chronic systolic (congestive) heart failure (5) Neurogenic bladder: Status: Acute (6) Type 1 diabetes mellitus: Status: Acute (7) Hyperlipidemia: Status: Acute Coding Level of Care Code Acute Roll Forming Supervisor for [facility] Diagnoses Chest pain R07.9 Elevated troponin R77.8 Acute kidney injury superimposed on chronic kidney disease N17.9; N18.9 CHF (congestive heart failure), NYHA class III I50.23 Congestive heart failure type: systolic Congestive heart failure chronicity: acute on chronic Neurogenic bladder N31.9 Type 1 diabetes mellitus E10.9 Hyperlipidemia E78.5
[2022-02-27 12:40] LABS: Glucose Point of Care 119 mg/dL (70-110)
[2022-02-27] MEDS: insulin glargine 100 units/1 mL 15 UNIT SUBCUT ×2 (13:22→17:13)
[2022-02-27] MEDS: gabapentin 100 mg Capsule PO ×2 (13:26→20:43)
[2022-02-27] MEDS: pantoprazole DR 40 mg Tablet PO (13:26)
[2022-02-27 16:53] LABS: Glucose Point of Care 228 mg/dL (70-110)
[2022-02-27] MEDS: insulin lispro 100 unit/1 mL SUBCUT (17:13)
[2022-02-27 17:37] LABS: Partial Thromboplastin Time 38.6 SECONDS (23.9-36.7)
[2022-02-27] MEDS: tamsulosin 0.4 mg Capsule PO (20:43)
[2022-02-27] MEDS: atorvastatin 40 mg Tablet PO (20:43)
[2022-02-27 20:55] LABS: Glucose Point of Care 137 mg/dL (70-110)
[2022-02-27] MEDS: sodium chloride 0.9% 1,000 ML 999 ML IV (21:43)
[2022-02-28] VITALS (11 sets, daily range): BP systolic 93–118; BP diastolic 56–72; PULSE 60–76; RESP 16–20; TEMP 36.7–37.7; O2SAT 91–99
[2022-02-28 00:17] LABS: Partial Thromboplastin Time 43.3 SECONDS (23.9-36.7)
[2022-02-28] MEDS: heparin drip 25,000 UNIT/500 ML PREMIX 23 UNIT IV ×2 (01:37→05:16)
[2022-02-28] MEDS: heparin 5,000 unit/mL INJ 1 mL IV ×3 (01:43→18:40)
[2022-02-28] MEDS: morphine IR 15 mg Tablet PO (01:55)
[2022-02-28] MEDS: sodium chloride 0.9% 1,000 ML 100 ML IV ×2 (03:31→14:31)
[2022-02-28 03:42] LABS: Basophils % 0.5 %; Eosinophils # 0.1 10^3/uL (0.0-0.8); Eosinophils % 1.9 %; Hematocrit 28.2 % (37.0-47.0); Hemoglobin 8.7 g/dL (11.5-15.3); Lymphocytes # 1.9 10^3/uL (0.8-4.8); Mean Corpuscular HGB Conc 30.9 g/dL (30.0-36.0); Mean Corpuscular Hemoglobin 27.6 pg (28.0-34.0); Mean Corpuscular Volume 89.5 fl (81-99); Mean Platelet Volume 11.8 fL (7.4-10.4); Monocytes # 0.6 10^3/uL (0.2-0.9); Monocytes % 8.6 %; Neutrophils # 4.64 10^3/uL (1.8-7.7); Neutrophils % 62.6 %; Nucleated Red Blood Cells % 0 %; Platelet Count 171 10^3/cmm (130-400); Red Blood Count 3.15 10^6/uL (4.1-5.3); Red Cell Distribution Width 15.6 % (12.1-15.1); White Blood Count 7.4 10^3/uL (4.0-10.0)
--- NOTE | 2022-02-28 04:48 | NUR.SHIFT ---
Pt in bed resting, she has had a headache most the night, low BP, medications given per AUG, call light in reach, bed low and locked
[2022-02-28] MEDS: ondansetron 2 mg/ML SDV 2 mL 4 MG IVP ×2 (05:24→22:21)
[2022-02-28 06:20] LABS: Glucose Point of Care 163 mg/dL (70-110)
[2022-02-28 08:21] LABS: Alanine Aminotransferase 28 U/L (0-33); Albumin Level 2.7 g/dL (3.5-5.2); Alkaline Phosphatase 143 U/L (35-105); Anion Gap 15.1 (5-19); Aspartate Amino Transferase 13 U/L (0-32); Blood Urea Nitrogen 50 mg/dL (6-20); Calcium 8.5 mg/dL (8.5-10.5); Carbon Dioxide 19 mmol/L (22-29); Chloride 109 mmol/L (98-107); Globulin 3.4 g/dL (1.3-4.6); Glomerular Filtration Rate 20.1 mL/min (90-130); Glucose 156 mg/dL (65-115); Osmolality Calculated 303 mOsm/kg (285-295); Potassium 5.1 mmol/L (3.5-5.1); Sodium 138 mmol/L (136-145); Total Bilirubin 0.2 mg/dL (0.15-1.2); Total Protein 6.1 g/dL (6.6-8.7)
[2022-02-28 08:29] LABS: Partial Thromboplastin Time 41.3 SECONDS (23.9-36.7)
[2022-02-28] MEDS: clopidogrel 75 mg Tablet PO (09:00)
[2022-02-28] MEDS: aspirin 81 mg EC Tablet PO (09:00)
[2022-02-28] MEDS: famotidine 20 mg Tablet PO ×2 (09:00→17:56)
[2022-02-28] MEDS: sennosides-docusate Tablet 1 TAB PO (09:01)
[2022-02-28] MEDS: gabapentin 100 mg Capsule PO ×3 (09:01→21:02)
--- NOTE | 2022-02-28 11:17 | P.PN_ITS ---
Subjective Subjective: Patient is stable. Renal function worsened significantly. Cardiac cath postponed for now. Vitals/I&O/Wt Last Vital Signs Temp 99.9 F H 02/28/22 11:09 Pulse 69 02/28/22 11:09 Resp 18 02/28/22 11:09 BP 94/56 02/28/22 11:09 Pulse Ox 96 02/28/22 11:09 O2 Del Method 02/28/22 11:09 02/27/22 02/28/22 02/28/22 22:59 06:59 14:59 Intake Total 1137.75 / 2437.083 718.467 / 3155.550 1117.3 / 1117.3 Output Total 1000 / 1000 Balance 137.75 / 1437.083 718.467 / 2155.550 1117.3 / 1117.3 Weight last 48 hrs Weight 140 lb Data : 03/01/22 01:46 03/01/22 01:46 A&P Assessment and plan (1) Chest pain: Worsening chest pain -Currently on heparin gtt for NSTE-ACS. May continue for now -Plan for LHC postponed because of renal function. We will follow. Nephrology consulted. Appreciate recs. Will need to have downtrending creatinine/ close to baseline for proceeding with procedure. We discussed in detail the risk of kidney function worsening. We will proceed with coronary angiogram. Patient understands risk. -On ASA, plavix, statin and beta marii Status: Acute (2) Elevated troponin: Downtrending Status: Acute (3) Acute kidney injury superimposed on chronic kidney disease: Status: Acute (4) CHF (congestive heart failure), NYHA class III: LVEF=40% Status: Acute Qualifiers: Congestive heart failure type: systolic Congestive heart failure chronicity: acute on chronic Qualified Code(s): I50.23 - Acute on chronic systo lic (congestive) heart failure (5) Neurogenic bladder: Status: Acute (6) Type 1 diabetes mellitus: Status: Acute (7) Hyperlipidemia: Status: Acute Attestations Medical Necessity Statement*: Care expected to cross 2 midnights. Coding Level of Care Code Acute Entry Level Lab Technician for [facility] Diagnoses Chest pain R07.9 Elevated troponin R77.8 Acute kidney injury superimposed on chronic kidney disease N17.9; N18.9 CHF (congestive heart failure), NYHA class III I50.23 Congestive heart failure type: systolic Congestive heart failure chronicity: acute on chronic Neurogenic bladder N31.9 Type 1 diabetes mellitus E10.9 Hyperlipidemia E78.5
[2022-02-28 11:41] LABS: Glucose Point of Care 137 mg/dL (70-110)
--- NOTE | 2022-02-28 13:00 | P.PN_ITS ---
Subjective Subjective: Donita reports she has a headache. She denies being short of breath. Still does not feel that good. Feels like she has a light chest discomfort at times. Medications: Reviewed: Yes Vitals/I&O/Wt Last Vital Signs Temp 99.9 F H 02/28/22 11:09 Pulse 69 02/28/22 11:09 Resp 18 02/28/22 11:09 BP 94/56 02/28/22 11:09 Pulse Ox 96 02/28/22 11:09 O2 Del Method 02/28/22 11:09 02/27/22 02/28/22 02/28/22 22:59 06:59 14:59 Intake Total 1137.75 / 2437.083 718.467 / 3155.550 1117.3 / 1117.3 Output Total 1000 / 1000 Balance 137.75 / 1437.083 718.467 / 2155.550 1117.3 / 1117.3 Weight last 48 hrs Weight 63.503 kg Physical Exam Narrative: General exam is a white female, denies shortness of breath Neck is supple no lymphadenopathy thyromegaly Cardiovascular regular rate and rhythm with a 2/6 systolic murmur Lungs clear no wheezing or crackles Abdomen is soft with positive bowel sounds Extremities no cyanosis clubbing. Trace edema present. Skin no rash Data : 02/28/22 03:19 02/28/22 07:38 A&P Assessment and plan (1) Unstable angina: Patient presents with recurrent chest discomfort. Troponin is elevated Continue heparin drip, aspirin, statin, Plavix. Secondary to lower blood pressures, discontinue carvedilol. Appreciate cardiology consultation. Possible angiogram. Status: Acute (2) Acute kidney injury superimposed on chronic kidney disease: Continue hydration Monitor renal function for improvement Monitor for pulmonary edema which is occurred in the past. Check urinalysis Nephrology consultation Status: Acute (3) Elevated troponin: See #1 Status: Acute (4) Neurogenic bladder: Continue Sanders Will change this out at this time. Status: Acute (5) Type 1 diabetes mellitus: Sliding scale insulin Status: Acute Plan Hyperkalemia, resolved Full code Heparin for DVT prophylaxis Attestations Medical Necessity Statement*: Needs continued hospitalization pending evaluation of coronaries secondary to recurrent chest discomfort. Coding Level of Care Code Acute Property Utilization Officer for [facility] Diagnoses Unstable angina I20.0 Acute kidney injury superimposed on chronic kidney disease N17.9; N18.9 Elevated troponin R77.8 Neurogenic bladder N31.9 Type 1 diabetes mellitus E10.9
[2022-02-28] MEDS: TRAMadol 50 mg Tablet PO ×2 (14:28→22:21)
--- NOTE | 2022-02-28 14:28 | PM.CONSULT ---
Providers/Reason For Consult Consulting Physician/Specialty*: ashlee davies md Reason for Consult*: luigi on ckd Requesting Physician: Dr Rust Attending Physician: Ruben Rust MD Primary Care Provider: SUZANNE Dias History of Present Illness History of Present Illness Donita Aguilar is a 36 year old female with past medical history of IDDM, history of methamphetamine use (used to smoke, last use 2-1/2 months ago per patient) recent COVID-19 pneumonia, history of left lower lobectomy for cavitary pneumonia, COPD. Recent hospitalization w/ CP and LUIGI-NSTEMIS, COPD exacerbation- she was given diuretics, CHF improved. Her echocardiogram showed mildly reduced left vent systolic function of 40 to 45% with moderate hypokinesis of mid to apical anterior and anterolateral espinosa. Stress test showed?Medium sized perfusion abnormality of mid to apical anterior, apical septal and basal to mid inferior espinosa with subtle reversibility in apical anterior and apical septal espinosa. This may represent attenuation artifact in abscence of prone imaging or old LA in RCA/LAD artery territory with subtle nina-infarct ischemia.? She was discharged home on medical management. She presented on Saturday with c/o cheat pain, generalized weakness and bodyache. CR yesterday was 2.2. Last night she was hypotensive and cr benton to 2.7 mg/dl and renal is called to consult Review of Systems Narrative: weak, lightheaded, dizzy, cp, sob, baird, not feeling well Medications/Allergies Home Medications Medication Instructions Recorded Confirmed Last Taken Type glucagon HCl 1 mg solution for 1 mg SUBCUT Q20M PRN hypoglycemia 08/22/20 02/26/22 Unknown Rx injection (Glucagon (HCl) #3 ea Emergency Kit) diphenhydramine HCl 25 mg tablet 25 mg PO BEDTIME 01/22/22 02/26/22 02/25/22 History (Benadryl Allergy) insulin aspart U-100 100 unit/mL See Rx Instructions .Route .COMPLEX 01/22/22 02/26/22 02/07/22 History (3 mL) subcutaneous pen (Novolog 6 units Flexpen U-100 Insulin aspart) ondansetron 4 mg disintegrating 4 mg PO Q6H PRN nausea and 01/25/22 02/26/22 Unknown Rx tablet vomiting #14 tabs furosemide 20 mg tablet 20 mg PO DAILY@0800 PRN Weight 01/29/22 02/26/22 02/26/22 Rx gain #30 tabs insulin glargine 100 unit/mL (3 15 unit (0.15 mL) SUBCUT BID #15 mL 01/29/22 02/26/22 02/25/22 Rx mL) subcutaneous pen (Lantus Solostar U-100 Insulin) albuterol sulfate 90 mcg/actuation 2 puff inhalation Q8H PRN 02/07/22 02/26/22 Unknown History aerosol inhaler shortness of breath or wheezing bismuth subsalicylate 262 mg 2 tab PO Q1H PRN Heartburn 02/07/22 02/26/22 02/07/22 History tablet (Pepto-Bismol) pantoprazole 40 mg tablet,delayed 40 mg PO DAILY@12 02/07/22 02/26/22 02/26/22 History release tamsulosin 0.4 mg capsule 0.4 mg PO BEDTIME 02/07/22 02/26/22 02/25/22 History aspirin 81 mg tablet,delayed 81 mg PO DAILY 30 days #30 tabs 02/19/22 02/26/22 02/26/22 Rx release atorvastatin 40 mg tablet 20 mg PO BEDTIME 30 days #30 tabs 02/19/22 02/26/22 02/25/22 Rx carvedilol 6.25 mg tablet 3.125 mg PO BID 30 days #30 tabs 02/19/22 02/26/22 02/26/22 Rx ergocalciferol (vitamin D2) 1,250 50,000 unit PO Q7D 30 days #5 caps 02/19/22 02/26/22 02/26/22 Rx mcg (50,000 unit) capsule (Vitamin D2) gabapentin 100 mg capsule 100 mg PO TID 30 days #90 caps 02/19/22 02/26/22 02/26/22 Rx Allergies Allergy/AdvReac Type Severity Reaction Status Date / Time acetaminophen AdvReac Mild ADR-Gastrointestinal Verified 02/28/22 08:43 Upset Current Medications Generic Name Dose Route Start Last Admin Trade Name Freq PRN Reason Stop Dose Admin Aspirin 81 mg 02/27/22 09:00 02/28/22 09:00 Aspirin 81 Mg Ec Tablet PO 81 mg DAILY SHAY Administration Atorvastatin Calcium 40 mg 02/27/22 21:00 02/27/22 20:43 Atorvastatin 40 Mg Tablet PO 40 mg BEDTIME SHAY Administration Clopidogrel Bisulfate 75 mg 02/27/22 09:00 02/28/22 09:00 Clopidogrel 75 Mg Tablet PO 75 mg DAILY SHAY Administration Famotidine 20 mg 02/28/22 09:00 02/28/22 09:00 Famotidine 20 Mg Tablet PO 20 mg BID SHAY Administration Gabapentin 100 mg 02/27/22 15:00 02/28/22 09:01 Gabapentin 100 Mg Capsule PO 100 mg TID SHAY Administration Heparin Sodium (Porcine) 0 unit 02/26/22 22:44 02/28/22 10:21 Heparin 5,000 Unit/Ml Inj 1 Ml IV 2,400 unit PRN PRN Administration Heparin weight-base protocol Protocol Sodium Chloride 1,000 mls @ 50 mls/hr 02/26/22 22:44 02/28/22 03:31 Sodium Chloride 0.9% IV 100 mls/hr .Q20H SHAY Administration Heparin Sodium/Sodium Chloride 25,000 unit in 500 mls @ 0 mls/hr 02/26/22 22:44 02/28/22 10:22 Heparin Drip IV 19.68 unit/kg/hr .Q0M SHAY 25 mls/hr Titration Protocol Per Protocol Insulin Glargine 15 unit 02/27/22 09:00 02/28/22 10:14 Insulin Glargine 100 Units/1 Ml SUBCUT Not Given BID SHAY Insulin Human Lispro 0 unit 02/27/22 08:00 02/28/22 12:34 Insulin Lispro 100 Unit/1 Ml SUBCUT Not Given TIDWM [facility] Protocol Ondansetron HCl 4 mg 02/26/22 21:41 02/28/22 05:24 Ondansetron 2 Mg/Ml Sdv 2 Ml IVP 4 mg Q6H PRN Administration NAUSEA AND VOMITING Senna/Docusate Sodium 1 tab 02/27/22 09:00 02/28/22 09:01 Sennosides-Docusate Tablet PO 1 tab DAILY SHAY Administration Tamsulosin HCl 0.4 mg 02/27/22 21:00 02/27/22 20:43 Tamsulosin 0.4 Mg Capsule PO 0.4 mg BEDTIME SHAY Administration PFSH Acute PFSH: Medical History Acute hyperglycemia Acute kidney injury superimposed on chronic kidney disease Anemia Anxiety Arnold-Chiari malformation CAD (coronary artery disease) Celiac disease CHF (congestive heart failure), NYHA class III Chronic headache Complicated UTI (urinary tract infection) COVID-19 Cystitis Diabetic gastroparesis -continue Reglan Diabetic neuropathy associated with type 1 diabetes mellitus DKA (diabetic ketoacidoses) Drug abuse Esophagitis Headache, common migraine, intractable, with status migrainosus History of pancreatitis HTN (hypertension) Long-term insulin use Lymphadenitis Metabolic acidosis Migraine headache Neurogenic bladder Non-alcoholic fatty liver disease Pancreatitis PID (pelvic inflammatory disease) Pleural effusion 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 Pulmonary hypertension Pyelonephritis Recurrent UTI Respiratory failure Sepsis Tobacco dependence Transaminitis Type 1 diabetes mellitus Uncontrolled type 1 diabetes mellitus Ureterolithiasis Surgical History History of cholecystectomy History of endoscopy History of lung surgery -s/p LLL lobectomy secondary to cavitary pneumonia (2017) Family History Grandfather Diabetes Other Heart disease Hypertension Social History Smoking and tobacco status: current every day smoker cigarettes Packs smoked per day: 0.5 Second hand smoke exposure: Yes Alcohol intake: never Household members: children Housing: House Marital status: Single Current occupational status: unemployed Female Reproductive History: Date of last menstrual period: 07/24/21 Vitals/I&O/Wt Last Vital Signs Temp 99.9 F H 02/28/22 11:09 Pulse 69 02/28/22 11:09 Resp 18 02/28/22 11:09 BP 94/56 02/28/22 11:09 Pulse Ox 96 02/28/22 11:09 O2 Del Method 02/28/22 11:09 02/27/22 02/28/22 02/28/22 22:59 06:59 14:59 Intake Total 1137.75 / 2437.083 718.467 / 3155.550 1357.3 / 1357.3 Output Total 1000 / 1000 Balance 137.75 / 1437.083 718.467 / 2155.550 1357.3 / 1357.3 Weight last 48 hrs Weight 63.503 kg Physical Exam Narrative: NARD in bed, VS noted heent- nc/at, eomi, anicteric neck supple lungs dull bases heart reg, +LYNNETTE abd soft, nt, nd, +BS ext no edema neuro- a,a, ox 3 Data : 02/28/22 03:19 02/28/22 07:38 A&P Assessment and plan (1) Acute kidney injury superimposed on chronic kidney disease: 36 yr old female ex-ivdu, iddm, htn, recent cavitary pna, recent NSTEMI/ COPD exacerbation. pt is back w/ CP and cardiology wants to perform a cardiac cath. rneal is called to consult. 1. LUIGI - recent rt hydronephrosis- will repeat renal us -repeat ua protein improved, 3 + blood -high ur na -overnight cr benton from 2.2 to 2.7 mg/dl Q septic emboli Q CRS Q covid- nephropathy -appears now to have ckd stage 3b/ 4 2. DM control per PMD hgb a1c of 10.3 3. CAD- for cardiac cath, will give nina-cath ivf- if okay w/ cardiology -hypotension- maximize BP per cardiology 4.? anemia- high iron sat. no iv iron. may need MAX- will give one dose w/ CAD 5.?replace magnesium 6. chf and elevated bnp- consider diuresis 7. replace vit d? pth 123-? recheck in 3 weeks seen and examined w/ RN-? telehealth visit time spent 45+? min discussed w/ pt and RN Status: Acute Plan see above Consult Attestations Medical Necessity Statement: cp, luigi on ckd Time Spent in Patient Care: Greater than 35 minutes (>than 50% of time spent in counselling and/or direct pt care on unit). Coding Level of Care Code Acute Index Editor for Chg Fwd Diagnoses Acute kidney injury superimposed on chronic kidney disease N17.9; N18.9
[2022-02-28 15:34] LABS: Uric Acid 8.5 mg/dL (2.4-5.7)
[2022-02-28 15:36] LABS: Bacteria Urine 4+ /hpf; Bilirubin Urine Neg (Negative); Blood Urine 3+ (Negative); Fine Granular Casts Urine 0-4 /lpf; Glucose Urine UA Norm (Normal); Ketones Urine Negative (Negative); Leukocyte Esterase Urine 2+ (Negative); Nitrate Urine Negative (Negative); Protein Urine 1+ (Negative); RBC Urine TOO NUMEROUS TO CNT /hpf (0-2); Specific Gravity, Urine 1.015 (1.005-1.030); Squamous Epithelial Cell Urine 0-4 /hpf (0-5); Urine Appearance Cloudy (CLEAR); Urine Color Yellow (Yellow); Urobilinogen Urine Norm (Negative); WBC Urine TOO NUMEROUS TO CNT /hpf (0-5); pH Urine 5 (5-7)
[2022-02-28 15:37] LABS: Add Urine Culture? Yes
[2022-02-28] MEDS: epoetin alfa 10,000 unit/mL INJ 10000 UNIT SUBCUT (16:09)
[2022-02-28 16:50] LABS: Partial Thromboplastin Time 54.6 SECONDS (23.9-36.7)
[2022-02-28 16:57] LABS: Glucose Point of Care 90 mg/dL (70-110)
[2022-02-28] MEDS: insulin glargine 100 units/1 mL 7 UNIT SUBCUT (18:23)
--- NOTE | 2022-02-28 18:50 | PC.NURSE ---
Marilyn replaced this shift 02/28/22 7a
[2022-02-28 20:45] LABS: Glucose Point of Care 133 mg/dL (70-110)
[2022-02-28] MEDS: atorvastatin 40 mg Tablet PO (21:02)
[2022-02-28] MEDS: tamsulosin 0.4 mg Capsule PO (21:02)
[2022-03-01] VITALS (26 sets, daily range): BP systolic 94–136; BP diastolic 58–90; PULSE 69–80; RESP 0–18; TEMP 36.8–37.4; O2SAT 90–97
[2022-03-01 02:33] LABS: Basophils % 0.5 %; Eosinophils # 0.1 10^3/uL (0.0-0.8); Eosinophils % 1.5 %; Hemoglobin 8.5 g/dL (11.5-15.3); Lymphocytes # 1.6 10^3/uL (0.8-4.8); Lymphocytes % 26.2 %; Mean Corpuscular HGB Conc 28.3 g/dL (30.0-36.0); Mean Corpuscular Volume 95.2 fl (81-99); Mean Platelet Volume 10.3 fL (7.4-10.4); Monocytes # 0.6 10^3/uL (0.2-0.9); Monocytes % 10.1 %; Neutrophils % 61.4 %; Nucleated Red Blood Cells % 0 %; Platelet Count 169 10^3/cmm (130-400); Red Blood Count 3.15 10^6/uL (4.1-5.3); Red Cell Distribution Width 15.5 % (12.1-15.1)
[2022-03-01] MEDS: heparin drip 25,000 UNIT/500 ML PREMIX 26 UNIT IV (02:49)
[2022-03-01 02:55] LABS: Alanine Aminotransferase 39 U/L (0-33); Albumin Level 2.8 g/dL (3.5-5.2); Alkaline Phosphatase 290 U/L (35-105); Anion Gap 15.6 (5-19); Aspartate Amino Transferase 37 U/L (0-32); Blood Urea Nitrogen 47 mg/dL (6-20); Calcium 8.8 mg/dL (8.5-10.5); Carbon Dioxide 17 mmol/L (22-29); Chloride 113 mmol/L (98-107); Globulin 3.7 g/dL (1.3-4.6); Glomerular Filtration Rate 20.9 mL/min (90-130); Glucose 102 mg/dL (65-115); Magnesium 1.8 mg/dL (1.7-2.3); Osmolality Calculated 304 mOsm/kg (285-295); Phosphorus 6.4 mg/dL (2.5-4.5); Potassium 4.6 mmol/L (3.5-5.1); Sodium 141 mmol/L (136-145); Total Bilirubin 0.2 mg/dL (0.15-1.2); Total Protein 6.5 g/dL (6.6-8.7)
[2022-03-01] MEDS: heparin 5,000 unit/mL INJ 1 mL IV (03:05)
[2022-03-01 06:05] LABS: Glucose Point of Care 129 mg/dL (70-110)
--- NOTE | 2022-03-01 08:11 | PM.PN ---
Subjective Subjective: Patient is stable. On IV fluids Vitals/I&O/Wt Last Vital Signs Temp 99.1 F 03/01/22 03:56 Pulse 80 03/01/22 07:50 Resp 16 03/01/22 07:50 BP 94/58 03/01/22 03:56 Pulse Ox 97 03/01/22 07:50 O2 Del Method 03/01/22 07:50 02/28/22 03/01/22 03/01/22 22:59 06:59 14:59 Intake Total 360 / 2717.3 392.667 / 3109.967 Output Total 650 / 650 Balance 360 / 2717.3 -257.333 / 2459.967 Physical Exam Narrative: GENERAL: Averagely built and averagely nourished in no acute distress HEENT: Extraocular movement intact. ? No pallor or icterus. NECK: No JVD,? No carotid bruit. CARDIOVASCULAR SYSTEM: S1-S2 regular.? No murmur? or gallops. RESPIRATORY SYSTEM: Chest clear to auscultation except at bases.? No wheezes rhonchi or rubs heard. No use of accessory muscles. ABDOMEN: Soft, nontender and nondistended.? Normal bowel sounds present.? EXTREMITIES: No cyanosis or clubbing. No edema.? No signs of chronic venous insufficiency. 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 No focal neurological deficits.? Urinary Catheter Management: Sanders: Cath Placed During This Visit: yes Reason for Continuing Indwelling Catheter: Accurate Measurement of Urinary Output in Critically Ill Patients Urinary Catheter Date of Insertion: 02/28/22 Urinary Catheter Time of Insertion: 15:14 Data : 03/02/22 05:00 03/02/22 05:00 A&P Assessment and plan (1) Chest pain: Worsening chest pain -Currently on heparin gtt for NSTE-ACS. May continue for now -Plan for left heart cath tomorrow if renal function stays stable. Risks and benefits of the procedure have been discussed in detail including the renal function worsening/dialysis need. -On ASA, plavix, statin and beta marii Status: Acute (2) Elevated troponin: Downtrending Status: Acute (3) Acute kidney injury superimposed on chronic kidney disease: Status: Acute (4) CHF (congestive heart failure), NYHA class III: LVEF=40% Status: Acute Qualifiers: Congestive heart failure type: systolic Congestive heart failure chronicity: acute on chronic Qualified Code(s): I50.23 - Acute on chronic systolic (congestive) heart failure (5) Neurogenic bladder: Status: Acute (6) Type 1 diabetes mellitus: Status: Acute (7) Hyperlipidemia: Status: Acute Attestations Medical Necessity Statement*: Care expected to cross 2 midnights. 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
[2022-03-01 08:28] LABS: Partial Thromboplastin Time 70.6 SECONDS (23.9-36.7)
[2022-03-01] MEDS: gabapentin 100 mg Capsule PO ×3 (09:20→20:26)
[2022-03-01] MEDS: aspirin 81 mg EC Tablet PO (09:20)
[2022-03-01] MEDS: fluconazole 100 mg Tablet PO (09:20)
[2022-03-01] MEDS: clopidogrel 75 mg Tablet PO (09:20)
[2022-03-01] MEDS: famotidine 20 mg Tablet PO ×2 (09:20→18:10)
--- NOTE | 2022-03-01 09:26 | PM.PN ---
Subjective Subjective: still cp. no sob. + nausea. no diarrhea. + h/a, weak. lethargic. feels poorly Medications: Reviewed: Yes Medication Review Details: Current Medications Acetaminophen (Acetaminophen 500 Mg Tablet) 500 mg PO Q4H PRN PRN Reason: fever Albuterol/Ipratropium (Ipratropium-Albuterol 3 Ml Neb) 3 ml INHALATION Q6H PRN PRN Reason: SHORTNESS OF BREATH Aspirin (Aspirin 81 Mg Ec Tablet) 81 mg PO DAILY [facility] Last Admin: 03/01/22 09:20 Dose: 81 mg Atorvastatin Calcium (Atorvastatin 40 Mg Tablet) 40 mg PO BEDTIME [facility] Last Admin: 02/28/22 21:02 Dose: 40 mg Clopidogrel Bisulfate (Clopidogrel 75 Mg Tablet) 75 mg PO DAILY [facility] Last Admin: 03/01/22 09:20 Dose: 75 mg Dextrose (Dextrose 50% Syringe 50 Ml) 25 ml IVP ONCE PRN; Protocol PRN Reason: hypoglycemia protocol Dextrose (Dextrose 50% Syringe 50 Ml) 50 ml IVP PRN PRN; Protocol PRN Reason: hypoglycemia protocol Ergocalciferol (Ergocalciferol (Vitamin D2) 50,000 Unit Capsule) 50,000 unit PO Q7D [facility] Famotidine (Famotidine 20 Mg Tablet) 20 mg PO BID [facility] Last Admin: 03/01/22 09:20 Dose: 20 mg Fluconazole (Fluconazole 100 Mg Tablet) 100 mg PO DAILY [facility] Last Admin: 03/01/22 09:20 Dose: 100 mg Gabapentin (Gabapentin 100 Mg Capsule) 100 mg PO TID [facility] Last Admin: 03/01/22 09:20 Dose: 100 mg Glucagon (Glucagon 1 Mg/Ml Inj 1 Ml) 1 mg IM ONCE PRN; Protocol PRN Reason: Adult Acute Hypoglycemia Prot. Heparin Sodium (Porcine) (Heparin 5,000 Unit/Ml Inj 1 Ml) 0 unit IV PRN PRN; Protocol PRN Reason: Heparin weight-base protocol Last Admin: 03/01/22 03:05 Dose: 2,400 unit Dextrose (D5w) 500 mls @ 100 mls/hr IV ONCE PRN; Protocol PRN Reason: Adult Acute Hypoglycemia Prot Sodium Chloride (Sodium Chloride 0.9%) 1,000 mls @ 50 mls/hr IV .Q20H [facility] Last Admin: 02/28/22 14:31 Dose: 100 mls/hr Heparin Sodium/Sodium Chloride (Heparin Drip) 25,000 unit in 500 mls @ 0 mls/hr IV .Q0M [facility]; Protocol Last Titration: 03/01/22 03:12 Dose: 22.05 unit/kg/hr, 28 mls/hr Insulin Glargine (Insulin Glargine 100 Units/1 Ml) 7 unit SUBCUT BID@0900,2100 SHAY Insulin Human Lispro (Insulin Lispro 100 Unit/1 Ml) 0 unit SUBCUT TIDWM [facility]; Protocol Last Admin: 03/01/22 08:14 Dose: Not Given Ondansetron HCl (Ondansetron 2 Mg/Ml Sdv 2 Ml) 4 mg IVP Q6H PRN PRN Reason: NAUSEA AND VOMITING Last Admin: 02/28/22 22:21 Dose: 4 mg Senna/Docusate Sodium (Sennosides-Docusate Tablet) 1 tab PO DAILY [facility] Last Admin: 03/01/22 09:21 Dose: Not Given Tamsulosin HCl (Tamsulosin 0.4 Mg Capsule) 0.4 mg PO BEDTIME [facility] Last Admin: 02/28/22 21:02 Dose: 0.4 mg Tramadol HCl (Tramadol 50 Mg Tablet) 50 mg PO Q8H PRN PRN Reason: MODERATE PAIN Last Admin: 02/28/22 22:21 Dose: 50 mg Vitals/I&O/Wt Last Vital Signs Temp 99.4 F 03/01/22 08:00 Pulse 78 03/01/22 08:00 Resp 17 03/01/22 08:00 BP 136/90 03/01/22 08:00 Pulse Ox 90 03/01/22 08:00 O2 Del Method 03/01/22 08:00 02/28/22 03/01/22 03/01/22 22:59 06:59 14:59 Intake Total 360 / 2717.3 392.667 / 3109.967 Output Total 650 / 650 Balance 360 / 2717.3 -257.333 / 2139.967 Physical Exam Narrative: NARD in bed, VS noted heent- nc/at, eomi, anicteric neck supple lungs dull bases heart reg, +LYNNETTE abd soft, nt, nd, +BS ext no edema neuro- a,a, ox 3 Urinary Catheter Management: Sanders: Cath Placed During This Visit: yes Reason for Continuing Indwelling Catheter: Accurate Measurement of Urinary Output in Critically Ill Patients Urinary Catheter Date of Insertion: 02/28/22 Urinary Catheter Time of Insertion: 15:14 Data : 03/01/22 01:46 03/01/22 01:46 Micro: Microbiology 02/28/22 15:00 Urine Culture - Preliminary Urine,Clean Catch Gram Negative Rods A&P Assessment and plan (1) Acute kidney injury superimposed on chronic kidney disease: 36 yr old female ex-ivdu, iddm, htn, recent cavitary pna, recent NSTEMI/ COPD exacerbation. pt is back w/ CP and cardiology wants to perform a cardiac cath. rneal is called to consult. 1. ERICA - recent rt hydronephrosis- will repeat renal us -repeat ua protein improved, 3 + blood -high ur na -overnight cr stable -reason for rise in cr this summer. D Dx is septic emboli vs CRS vs covid- nephropathy vs other -appears now to have ckd stage 3b/ 4 2. DM control per PMD hgb a1c of 10.3 3. CAD- for cardiac cath, will give nina-cath ivf- if okay w/ cardiology -pt at high cardiac risk. if cr stable tomorrow- would proceed w/ cardiac cath giving limited dye as possible -pt understands renal risk of cath and accepts 4.? anemia- high iron sat. no iv iron. s/p MAX on 03/01/22 5.?met acidosis of ckd- use na bicarb 6. chf and elevated bnp- consider diuresis 7. replace vit d? pth 123-? recheck in 3 weeks -phos 6.4- add a binder 8. f/u ur cx 4+ bacteria and yeast- currently gram neg caren UTI - give abx seen and examined w/ RN-? telehealth visit time spent 25+? min discussed w/ pt and RN Status: Acute Plan see above Attestations Medical Necessity Statement*: erica/ ckd. uti/. cp Time Spent in Patient Care: 16 - 35 minutes (>than 50% of time spent in counselling and/or direct pt care on unit). 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
[2022-03-01] MEDS: insulin glargine 100 units/1 mL 7 UNIT SUBCUT (09:40)
[2022-03-01] MEDS: lactated ringers 1,000 ML 30 ML IV (09:54)
[2022-03-01] MEDS: cefTRIAXone 1,000 MG in sodium chloride 0.9% (plus) 50 ML 100 MG IV (09:54)
[2022-03-01 11:08] LABS: Glucose Point of Care 101 mg/dL (70-110)
--- NOTE | 2022-03-01 12:57 | PM.PN ---
Subjective Subjective: Donita reports she is nauseated. She denies being short of breath currently. She is able to lay flat. Appreciate nephrology consultation. Medications: Reviewed: Yes Vitals/I&O/Wt Last Vital Signs Temp 98.7 F 03/01/22 12:00 Pulse 76 03/01/22 12:00 Resp 17 03/01/22 12:00 BP 126/88 03/01/22 12:00 Pulse Ox 94 03/01/22 12:00 O2 Del Method 03/01/22 12:00 02/28/22 03/01/22 03/01/22 22:59 06:59 14:59 Intake Total 360 / 2717.3 392.667 / 3109.967 1170 / 1170 Output Total 650 / 650 Balance 360 / 2717.3 -257.333 / 2459.967 1170 / 1170 Physical Exam Narrative: General exam is a white female, denies shortness of breath Neck is supple no lymphadenopathy thyromegaly Cardiovascular regular rate and rhythm with a 2/6 systolic murmur Lungs clear no wheezing or crackles Abdomen is soft with positive bowel sounds Extremities no cyanosis clubbing. Trace edema present. Skin no rash Urinary Catheter Management: Sanders: Cath Placed During This Visit: yes Reason for Continuing Indwelling Catheter: Accurate Measurement of Urinary Output in Critically Ill Patients Urinary Catheter Date of Insertion: 02/28/22 Urinary Catheter Time of Insertion: 15:14 Data : 03/01/22 01:46 03/01/22 01:46 Micro: Microbiology 02/28/22 15:00 Urine Culture - Preliminary Urine,Clean Catch Gram Negative Rods A&P Assessment and plan (1) Unstable angina: Patient presents with recurrent chest discomfort. Troponin is elevated Continue heparin drip, aspirin, statin, Plavix. Secondary to lower blood pressures, carvedilol was discontinued Appreciate cardiology consultation. Possible angiogram tomorrow. Status: Acute (2) Acute kidney injury superimposed on chronic kidney disease: Continue hydration Monitor renal function for improvement Monitor for pulmonary edema which is occurred in the past. Last urine culture demonstrated yeast. Fluconazole added. Urine culture growing gram-negative rods. Rocephin added by nephrology which is appropriate. Appreciate nephrology consultation Fluids were changed to LR at 30 cc an hour. Status: Acute (3) Elevated troponin: See #1 Status: Acute (4) Neurogenic bladder: Continue Sanders This was changed on February 28 Status: Acute (5) Type 1 diabetes mellitus: Sliding scale insulin Status: Acute Plan Hyperkalemia, resolved Full code Heparin for DVT prophylaxis Attestations Medical Necessity Statement*: Needs continued hospitalization for definitive evaluation of recurrent chest discomfort with elevated troponin. Coding Level of Care Code Acute Roller Coaster Designer for g Fwd Diagnoses Unstable angina I20.0 Acute kidney injury superimposed on chronic kidney disease N17.9; N18.9 Elevated troponin R77.8 Neurogenic bladder N31.9 Type 1 diabetes mellitus E10.9
[2022-03-01 15:40] LABS: Partial Thromboplastin Time 26.4 SECONDS (23.9-36.7)
[2022-03-01] MEDS: sodium bicarbonate 650 mg Tablet PO ×2 (16:10→20:26)
[2022-03-01 17:00] LABS: Glucose Point of Care 104 mg/dL (70-110)
[2022-03-01] MEDS: atorvastatin 40 mg Tablet PO (20:26)
[2022-03-01] MEDS: tamsulosin 0.4 mg Capsule PO (20:26)
[2022-03-01] MEDS: TRAMadol 50 mg Tablet PO (20:26)
[2022-03-01 20:56] LABS: Glucose Point of Care 97 mg/dL (70-110)
[2022-03-01] MEDS: heparin drip 25,000 UNIT/500 ML PREMIX 30 UNIT IV (20:57)
--- NOTE | 2022-03-01 21:15 | PC.NURSE ---
Patients accucheck was 97 at bedtime. Patient was already sleeping, not able to eat snack. Patients Lantus 7units was held at this time due to patients blood glucose being on the lower side and patient is sleeping and unable to eat snack.
[2022-03-01 23:35] LABS: Partial Thromboplastin Time 69.1 SECONDS (23.9-36.7)
[2022-03-02] VITALS (50 sets, daily range): BP systolic 108–151; BP diastolic 69–104; PULSE 65–275; RESP 0–18; TEMP 36.5–36.9; O2SAT 93–98
[2022-03-02] MEDS: ondansetron 2 mg/ML SDV 2 mL 4 MG IVP (05:08)
[2022-03-02] MEDS: TRAMadol 50 mg Tablet PO ×2 (05:12→21:45)
[2022-03-02 05:17] LABS: Basophils % 0.5 %; Eosinophils # 0.1 10^3/uL (0.0-0.8); Eosinophils % 1.8 %; Hemoglobin 8.5 g/dL (11.5-15.3); Lymphocytes # 1.6 10^3/uL (0.8-4.8); Lymphocytes % 28.8 %; Mean Corpuscular HGB Conc 30.4 g/dL (30.0-36.0); Mean Corpuscular Hemoglobin 27.2 pg (28.0-34.0); Mean Corpuscular Volume 89.5 fl (81-99); Mean Platelet Volume 10.6 fL (7.4-10.4); Monocytes # 0.5 10^3/uL (0.2-0.9); Monocytes % 9.3 %; Neutrophils # 3.38 10^3/uL (1.8-7.7); Neutrophils % 59.4 %; Nucleated Red Blood Cells % 0 %; Platelet Count 177 10^3/cmm (130-400); Red Blood Count 3.13 10^6/uL (4.1-5.3); Red Cell Distribution Width 15.8 % (12.1-15.1); White Blood Count 5.7 10^3/uL (4.0-10.0)
[2022-03-02 05:40] LABS: Alanine Aminotransferase 55 U/L (0-33); Albumin Level 2.6 g/dL (3.5-5.2); Alkaline Phosphatase 381 U/L (35-105); Anion Gap 14.5 (5-19); Aspartate Amino Transferase 30 U/L (0-32); Blood Urea Nitrogen 40 mg/dL (6-20); Calcium 8.8 mg/dL (8.5-10.5); Carbon Dioxide 19 mmol/L (22-29); Chloride 110 mmol/L (98-107); Globulin 3.6 g/dL (1.3-4.6); Glucose 117 mg/dL (65-115); Magnesium 1.7 mg/dL (1.7-2.3); Osmolality Calculated 299 mOsm/kg (285-295); Phosphorus 4.5 mg/dL (2.5-4.5); Potassium 4.5 mmol/L (3.5-5.1); Sodium 139 mmol/L (136-145); Total Bilirubin 0.2 mg/dL (0.15-1.2); Total Protein 6.2 g/dL (6.6-8.7)
--- NOTE | 2022-03-02 05:42 | PC.NURSE ---
Patient was made NPO at 3am for possible cardiac Cath today. The patients procedure was not schedule as it is depending on her creatinine results. Charge nurse made aware and will pass onto the next shift.
[2022-03-02 05:44] LABS: Partial Thromboplastin Time 76.9 SECONDS (23.9-36.7)
[2022-03-02 06:37] LABS: Glucose Point of Care 116 mg/dL (70-110)
--- NOTE | 2022-03-02 07:19 | XACV_ITS ---
Exam Room: [facility] Ht: 356 cm Wt: 27 kg BSA: 1.47 m2 Gender: Female : 1985 Exam Priority: Routine Procedure(s): Procedure Description: Diagnostic procedure Procedure Description: Left Heart Catheterization Procedure Description: Coronary Angiography Diagnostic Cath Status: Urgent Diagnostic Findings * Mid Left Anterior Descending: severe 90% stenosis, KORIN: 3 flow. Proximal LAD gives rise to a very large sized diagonal which is almost dual LAD system. This large diagonal has an ostial 90% stenosis.. * Mid Right Coronary Artery: total occlusion, KORIN: 0 flow. Receives collaterals from the LAD. RCA appears to be a large sized vessel.. * Left Main has no disease. * Mid Circumflex: luminal irregularities 20% stenosis, KORIN: 3 flow. * 1st Diagonal: severe 90% stenosis, KORIN: 3 flow. * Coronary angiography shows right dominance. Conclusions 1. Severe multivessel disease including COMPLIANCE VICE PRESIDENT of mid RCA, 2. severe mid LAD stenosis, 3. severe large sized 4. diagonal ostial stenosis.. Recommendations * Given her young age, history of noncompliance, she will benefit more from CABG if she is a candidate for the procedure. We do not have CT surgery availability at our hospital this week. We will transfer her to a tertiary care facility for heart team discussion and possible CABG.. * Continue aspirin. We will hold Plavix. Continue heparin drip. * Gentle hydration for 4 to 6 hours. Monitor renal function closely. Interventional RX Recommendation: CABG Diagnostic RX Recommendation: CABG Anticoagulation: Heparin Pressures Phase:Rest AO : 90 / 75 ( 84 ) @ 9:13:00 AM 139 / 84 ( 109 ) @ 9:21:00 AM 141 / 85 ( 110 ) @ 9:21:00 AM LV : 135 / 9 / 40 @ 9:21:00 AM 137 / 7 / 40 @ 9:21:00 AM Valves Phase:DefaultPhase AV : 0.0 @ 8:29:26 AM AV Mean Gradient: 0.0 @ 8:29:26 AM Clinical Evaluation EBL: 5mL-10mL Procedural Details Procedure Consent Obtained. Admit Source: In Patient. Pre-Procedure Time Out. Identified patient by full name and date of as verbalized by the patient/guarantor. Does the consent match the physician's order: Yes. Accurate & Complete Informed Consent: Yes. Inpatient/Outpatient History & Physical on Chart: Yes. If H&P is completed, is and addenduem needed: N/A; If yes, is the addendum complete: N/A. Visualize and Verify Site with Patient/Guarantor: N/A. Relevant Radiology Images available: N/A. Pre-op teaching completed and patient verbalized understanding. The risks, benefits, and alternatives of sedation and/or procedure were discussed by physician. The patient agrees to continue. Procedure started. [facility] Clinical Fraility Score: 3: Managing Well. Internal Salesperson Indications: Worsening Angina, Cardiomyopathy. Chest Pain Symptom Assessment: Typical Angina Symptoms. Correct patient, site and procedure confirmed by cath team. Current diagnosis: Chest Pain. PERRLA. Strong, equal hand election supervisor bilaterally. Lungs clear x 5 lobes. IV Site on Arrival: 20 gauge in the right forearm. IV Site on Arrival: 18 gauge in the left forearm. IV Fluids: 0.9% NaCl at KVO. 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 Pre Procedural Pulses: right radial was 2+. Pre Procedural Pulses: bilateral dorsalis pedis was 1+. Oxygen started at 2liters/min via nasal canula. right groin was prepped with chloroprep then draped in the usual sterile fashion. right radial was prepped with chloroprep then draped in the usual sterile fashion. Physician notified. Baseline sample Acquired. HR: 63 BPM. Physician arrived. Physician scrubbed in. Immediate Pre-Procedure Time Out. Correct Patient: Yes; Correct Procedure: Yes; Correct Site: Yes; Correct Patient Position: Yes; Correct Supplies: Yes; Dried Flammable Prep: Yes; Blood Products Available: N/A;. Lidocaine 1% infiltrated to the right radial. Arterial access obtained. A 5 indian TIG catheter in over wire. Multiple views taken of left coronary artery. Catheter redirected to the RCA. Multiple views taken of right coronary artery. catheter out. A 5 indian TIG catheter in over wire. EDP Sample taken: LV 135/9,40; HR: 77 BPM; SpO2: 100%. Pullback taken: LV 137/7,40; AO 139/84(109); Mean: 0mmHg, Peak to Peak: 0mmHg, SEP: 7sec/min; HR: 80 BPM; SpO2: 100%. Catheter removed over the exchange wire. Physician scrubbed out. Post Procedure: Pulses reassessed and unchanged. PERRLA. Strong, equal hand election supervisor bilaterally. No VTE prophylaxis required. Medication's Wasted: Lidocaine 1% = 2 mL. Medication's Wasted: Nitro = 49.8 mg. Medication's Wasted: Heparin = 3500 unit. Total IV fluids: 50 mL. A TR Band was successful obtaining hemostatsis at the Right Radial artery insertion site. Complications: None. Estimated blood loss: 5mL-10mL. Responsiveness - Normal response to verbal stimuli; alert and oriented, PERRLA. Airway - Unaffected, no intervention required; spontaneous ventilation. Circulation: W/N/L, pulses unchanged. Nausea/Vomiting: N/A. Procedure completed. Post-op diagnosis: Multi vessel CAD. Patient transferred by wheelchair to CPRU. Access Site Site: Right Radial artery Sheath Size: 6 Fr Hemostasis Method: TR Band Hemostasis Success: Successful Procedure Medications Start: 8:04 AM Stop: 8:04 AM Medication: Versed Amount: 1 mg Route: I.V. Start: 8:04 AM Stop: 8:04 AM Medication: Fentanyl Amount: 50 mcg Route: I.V. Start: 8:11 AM Stop: 8:11 AM Medication: Nitrogylcerin Amount: 200 mcg Route: I.A. Start: 8:13 AM Stop: 8:13 AM Medication: Heparin Amount: 2500 units Route: I.V. Start: 8:18 AM Stop: 8:18 AM Medication: Narcan Amount: 0.4 mg Route: I.V. I, the attending physician, have reviewed and verified all procedure medications. Yes, all medications given per verbal order History/Risk Factors Hypertension: Yes Dyslipidemia: No Peripheral Arterial Disease (PAD): No Myocardial Infarction (TX): No Obesity: No Renal Disease: Yes Tobacco Use: Current/Recent(w/in 1 year) Prior Interventions PCI: No CABG: No Valve Surgery: No Report Signatures Finalized by Riccardo Burch MD on 03/03/2022 02:27 PM
--- NOTE | 2022-03-02 08:03 | PM.PN ---
Subjective Subjective: Patient is chest pain free at this time. Coronary angiogram showed Severe mid LAD stenosis, severe ostial large sized diagonal artery stenosis, HOME CARE PROVIDER of RCA. Vitals/I&O/Wt Last Vital Signs Temp 98.0 F 03/02/22 05:25 Pulse 75 03/02/22 06:00 Resp 17 03/02/22 05:25 BP 130/87 03/02/22 05:25 Pulse Ox 94 03/02/22 05:25 O2 Del Method 03/02/22 05:25 03/01/22 03/02/22 03/02/22 22:59 06:59 14:59 Intake Total 955.033 / 2125.033 506 / 2631.033 Output Total 900 / 900 550 / 1450 Balance 55.033 / 1225.033 -44 / 1181.033 Physical Exam Narrative: GENERAL: Patient is alert, awake and oriented x3. [] NECK: No jugular vein distension. [] HEENT: No cyanosis. No icterus. No pallor. [] HEART: Regular S1 and S2. No murmur, rub or gallop. [] LUNGS: Clear to auscultate bilaterally. [] ABDOMEN: Soft, nontender and nondistended. Positive bowel sounds. No guarding, rebound or tenderness. [] CENTRAL NERVOUS SYSTEM: Grossly nonfocal. [] EXTREMITIES: Lower extremities with 1+ edema bilaterally. Pulses palpable in the lower extremities, both dorsalis pedis and posterior tibial. [] Urinary Catheter Management: Sanders: Cath Placed During This Visit: yes Reason for Continuing Indwelling Catheter: Accurate Measurement of Urinary Output in Critically Ill Patients Urinary Catheter Date of Insertion: 02/28/22 Urinary Catheter Time of Insertion: 15:14 Data : 03/02/22 05:00 03/02/22 05:00 Micro: Microbiology 02/28/22 15:00 Urine Culture - Preliminary Urine,Clean Catch Gram Negative Rods A&P Assessment and plan (1) Chest pain: Patient underwent coronary angiogram today that showed severe mid LAD stenosis, critical ostial large sized diagonal artery stenosis, HOME CARE PROVIDER of RCA. We do not have CT surgery backup available. Will discuss with CT surgery at outside hospital for possible transfer for CABG versus PCI if CT surgery team thinks that she is at high risk for surgical procedure. Continue aspirin. We will hold Plavix for now. Continue heparin drip. Status: Acute (2) Elevated troponin: Downtrending Status: Acute (3) Acute kidney injury superimposed on chronic kidney disease: Status: Acute (4) CHF (congestive heart failure), NYHA class III: LVEF=40% Status: Acute Qualifiers: Congestive heart failure type: systolic Congestive heart failure chronicity: acute on chronic Qualified Code(s): I50.23 - Acute on chronic systolic (congestive) heart failure (5) Neurogenic bladder: Status: Acute (6) Type 1 diabetes mellitus: Status: Acute (7) Hyperlipidemia: Status: Acute Attestations Medical Necessity Statement*: Care expected to cross 2 midnights. Coding Level of Care Code Acute Wedding Coordinator for Reji Chandler Diagnoses Chest pain R07.9 Elevated troponin R77.8 Acute kidney injury superimposed on chronic kidney disease N17.9; N18.9 CHF (congestive heart failure), NYHA class III I50.23 Congestive heart failure type: systolic Congestive heart failure chronicity: acute on chronic Neurogenic bladder N31.9 Type 1 diabetes mellitus E10.9 Hyperlipidemia E78.5
--- NOTE | 2022-03-02 08:03 | W.PM.OPSUD ---
Surgery/Procedure H&P Update DATE OF PROCEDURE: March 02, 2022 DATE H&P PERFORMED: 03/02/22 H&P UPDATE INFORMATION: I have reviewed H&P completed within last 30 days, I have examined patient prior to procedure and No changes to prior documentation PREOP DIAGNOSIS: Worsening angina PRIMARY INDICATION FOR PROCEDURE: Worsening angina PLANNED PROCEDURE: Left heart cath with possible percutaneous coronary intervention PATIENT REASSESSED PRIOR TO SEDATION, WITH NO CHANGE NOTED: Yes PHYSICAL EXAM: alert, oriented x 3, clear to auscultation bilaterally and regular rate & rhythm AIRWAY EVAL/ANESTHESIA PLAN: ASA IV, Local Anesthesia, Risks, benefits & alternatives of sedation and/or procedure discussed and Patient agrees to continue as planned ADDITIONAL INFORMATION: Moderate sedation
--- NOTE | 2022-03-02 09:28 | P.PN_ITS ---
Subjective Subjective: Had cardiac cath this AM, feels exhausted, otherwise no complaints Vitals/I&O/Wt Last Vital Signs Temp 98.0 F 03/02/22 05:25 Pulse 87 03/02/22 09:00 Resp 9 L 03/02/22 09:00 BP 151/104 03/02/22 09:00 Pulse Ox 93 03/02/22 09:00 O2 Del Method 03/02/22 08:57 03/01/22 03/02/22 03/02/22 22:59 06:59 14:59 Intake Total 955.033 / 2125.033 506 / 2631.033 Output Total 900 / 900 550 / 1450 Balance 55.033 / 1225.033 -44 / 1181.033 Physical Exam Const: COMMON NORMALS: no acute distress and alert Neuro: SENSORIUM/ORIENTATION: Yes alert Urinary Catheter Management: Sanders: Cath Placed During This Visit: yes Reason for Continuing Indwelling Catheter: Accurate Measurement of Urinary Output in Critically Ill Patients Urinary Catheter Date of Insertion: 02/28/22 Urinary Catheter Time of Insertion: 15:14 Data : 03/02/22 05:00 03/02/22 05:00 Other Labs: Ca 8.8, phos 4.5, Mg 1.7 Micro: Microbiology 02/28/22 15:00 Urine Culture - Preliminary Urine,Clean Catch Gram Negative Rods Echo: Radiologist's impression: LV systolic function is mildly reduced with EF of 40 to 45%.? ?Moderate hypokinesis of mid to apical anterior and anterolateral espinosa. ?Right ventricle is normal in size and function. ?No gross valvular structural abnormalities seen.? Doppler exam ?not done for all valves. Mild tricuspid and mitral regurgitation ?Trace pericardial effusion US: Radiologist's impression: Right kidney is normal in size and appearance. Echogenicity: Normal. Cortical thickness: cm; Normal. Hydronephrosis: None. Perinephric fluid: None. Right kidney measures: 11.9 cm x 5.9 cm x 5.5 cm. Left kidney is normal in size and appearance. Echogenicity: Normal. Cortical thickness: cm; Normal. Hydronephrosis: None. Perinephric fluid: None. Left kidney measures: 9.0 cm x 4.1 cm x 4.3 cm. Other data: seen via telehealth with assistance of RN at bedside A&P Assessment and plan (1) Acute kidney injury superimposed on chronic kidney disease: Status: Acute Plan 1. Chronic kidney disease, serologic workup unremarkable, likely diabetic and hypertensive renal disease 2. Urinary tract infection, enterobacter, on IV ceftriaxone 3. Cardiomyopathy, s/p cardiac cath today 4. Hypertension, not receiving medication. Will begin lower dose ARB, losartan 50 mg daily. Resume outpatient carvedilol if ok with cardiology 5. Insulin dependent DM 6. Anemia, iron replete, consider epoeitin 7. Metabolic acidosis, on oral sodium bicarbonate, increase 8. Poor nutrition Can discontinue IVF later today. Repeat labs tomorrow Attestations Medical Necessity Statement*: see above Time Spent in Patient Care: 16 - 35 minutes Coding Level of Care Code Acute [place] Supervisor for Reji Chandler Diagnoses Acute kidney injury superimposed on chronic kidney disease N17.9; N18.9
--- NOTE | 2022-03-02 10:13 | PC.NURSE ---
TR band in place, dry et intact, no drainage noted. Vitals stable. No c/o of pain or discomfort. Report given to ROLA Saini. Patient transferred to floor per Dr. Burch's orders.
[2022-03-02] MEDS: fluconazole 100 mg Tablet PO (10:16)
[2022-03-02] MEDS: gabapentin 100 mg Capsule PO ×3 (10:16→21:40)
[2022-03-02] MEDS: sodium bicarbonate 650 mg Tablet PO ×4 (10:17→21:39)
[2022-03-02] MEDS: aspirin 81 mg EC Tablet PO (10:17)
[2022-03-02] MEDS: famotidine 20 mg Tablet PO ×2 (10:17→18:26)
[2022-03-02] MEDS: clopidogrel 75 mg Tablet PO (10:19)
[2022-03-02] MEDS: cefTRIAXone 1,000 MG in sodium chloride 0.9% (plus) 50 ML 100 MG IV (10:41)
[2022-03-02] MEDS: lactated ringers 1,000 ML 50 ML IV (10:55)
[2022-03-02 11:09] LABS: Glucose Point of Care 90 mg/dL (70-110)
--- NOTE | 2022-03-02 11:41 | PC.NURSE ---
hold heparin drip called Dr harman via tel phone when to continue heparin drip. received order to hold it at this time.
--- NOTE | 2022-03-02 11:48 | PC.CHAP ---
Pastoral Care Encounter/Spiritual Assessment Type of Contact [] Declined scaler visit [] Patient/Family/Request visit [] Outpatient visit [] Follow-up visit [] Physician referral [] Code/Alert [x] Routine visit [] Staff referral [] Actively dying [] Patient sleeping [] Family support [] [] Out of room [] Palliative care [] [] Receiving care in room [] Pre-surgical visit [] Trauma [] Long length of stay [] ICU visit [] Other: Relational/Emotional Strength [x] Patient feels connected with others/family/visitors/staff [] Distress [] Loneliness/isolation [] Abandonment Spirituality of Patient x [] Person of Marly [] Attends Gnosticist of their Marly [x] Believes in Prayer [] Reads Bible or Yazidism materials [] There are Spiritual issues to be addressed Property Supervisor Interventions [x] Prayer [] Active listening [] Non-anxious presence [x] Spiritual/emotional support [] Crisis/trauma care [] Spiritual counseling [] Bereavement support [] Provided bereavement packet [] Provided Bible/devotional materials [] Provided toy/stuffed animal, coloring book to patient or family member [] Provided Communion [] Anointing/Paton [] Salvation []x Completed spiritual assessment [] Other: Impact on Illness or Injury [] Angry [] Fearful [] Anxious [] Often cries [] Exhaustion [] Unable to work [] Unable to attend hinduism [] Unable to walk/stand [] Unable to read [] Unable to drive [] Unable to eat/drink [] Unable to sleep [] Unable to be with family [] Patient intubated [] Other: Summary patient saysn shews feeling mbetter Time spent with patient 5 min
[2022-03-02 13:01] LABS: Partial Thromboplastin Time 29.3 SECONDS (23.9-36.7)
--- NOTE | 2022-03-02 13:30 | PC.NURSE ---
TR band off no bleeding, hematoma, swelling. radial pulse is palpable +3. Activity restrictions discussed to pt.
[2022-03-02] MEDS: heparin drip 25,000 UNIT/500 ML PREMIX 29 UNIT IV (16:32)
[2022-03-02 17:22] LABS: Glucose Point of Care 196 mg/dL (70-110)
[2022-03-02] MEDS: insulin lispro 100 unit/1 mL SUBCUT (18:26)
--- NOTE | 2022-03-02 18:45 | P.TS_ITS ---
Transfer Summary Providers Date of Admission: 02/26/22 21:37 Date of Discharge/Transfer: 03/02/22 Attending Provider at Admission: Austin Che MD Attending Provider at Transfer: Ruben Rust MD Primary Care Provider: SUZANNE Dias Transfer Plans: Anticipated date of transfer: 03/02/22 . Diagnoses at Discharge Discharge Diagnosis (1) Chest pain: Status: Acute (2) Elevated troponin: Status: Acute (3) Acute kidney injury superimposed on chronic kidney disease: Status: Acute (4) CHF (congestive heart failure), NYHA class III: Status: Acute Qualifiers: Congestive heart failure type: systolic Congestive heart failure chronicity: acute on chronic Qualified Code(s): I50.23 - Acute on chronic systolic (congestive) heart failure (5) Neurogenic bladder: Status: Acute (6) Type 1 diabetes mellitus: Status: Acute (7) Hyperlipidemia: Status: Acute Reason for Visit Reason for Visit Chest pain, SOB, kidney pains Hospital Course Hospital Course Patient is a 36-year-old white female who presented to the hospital with chest discomfort. Troponin was elevated. Concern was this represented unstable angina. She had multiple admissions before, and angiogram had been planned but creatinine had not been amenable to the procedure. Nephrology was consulted. She was given fluids and followed closely. Creatinine showed stability and angiogram was performed on March 02. This demonstrated three-vessel disease. We did not have availability of cardiovascular surgery so transfer was arranged to [place], under the care of of Dr. Gregorio. Dr. Santiago conferred with this physician who accepted her. Patient was apprised of the risks of transfer. She was in stable condition at time of transfer. Discharge hemoglobin 8.5, discharge creatinine 2.4. Physical Exam Narrative: General exam no distress Neck is supple no lymphadenopathy thyromegaly Cardiovascular regular rate rhythm without murmur Lungs clear Abdomen is soft with positive bowel sounds Extremities no cyanosis clubbing. Trace edema is present. 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 Routine Exams 03/02/22 07:19 Ordered Complete Blood Count w/Auto AM LABS Lab 03/03/22 04:00 Ordered Comprehensive Metabolic Panel AM LABS Lab 03/03/22 04:00 Ordered Magnesium AM LABS Lab 03/03/22 04:00 Ordered PTT [Partial Thromboplastin Time] Routine Lab 03/02/22 22:00 Ordered Phosphorus AM LABS Lab 03/03/22 04:00 Ordered SARS Covid-2 Antigen Routine Lab 03/02/22 18:43 Uncollected Labs from last 24 hours 03/02/22 03/02/22 03/02/22 17:09 12:30 11:01 WBC RBC Hgb Hct MCV MCH MCHC RDW Plt Count MPV Neut % (Auto) Lymph % (Auto) [place] % (Auto) Eos % (Auto) Baso % (Auto) Neut # (Auto) Lymph # (Auto) [place] # (Auto) Eos # (Auto) Baso # (Auto) Nucleated RBC % (auto) Nucleated RBCs # APTT 29.3 D Sodium Potassium Chloride Carbon Dioxide Anion Gap BUN Creatinine GFR Calculation Glucose POC Glucose 196 H 90 Calculated Osmolality Calcium Phosphorus Magnesium Total Bilirubin AST ALT Alkaline Phosphatase Total Protein Albumin Globulin 03/02/22 03/02/22 03/02/22 06:34 05:00 05:00 WBC RBC Hgb Hct MCV MCH MCHC RDW Plt Count MPV Neut % (Auto) Lymph % (Auto) [place] % (Auto) Eos % (Auto) Baso % (Auto) Neut # (Auto) Lymph # (Auto) [place] # (Auto) Eos # (Auto) Baso # (Auto) Nucleated RBC % (auto) Nucleated RBCs # APTT 76.9 H Sodium 139 Potassium 4.5 Chloride 110 H Carbon Dioxide 19 L Anion Gap 14.5 BUN 40 H Creatinine 2.4 H GFR Calculation 23.0 L Glucose 117 H POC Glucose 116 H Calculated Osmolality 299 H Calcium 8.8 Phosphorus 4.5 Magnesium 1.7 Total Bilirubin 0.2 AST 30 ALT 55 H Alkaline Phosphatase 381 H Total Protein 6.2 L Albumin 2.6 L Globulin 3.6 03/02/22 03/01/22 03/01/22 05:00 22:59 20:53 WBC 5.7 RBC 3.13 L Hgb 8.5 L Hct 28.0 L MCV 89.5 D MCH 27.2 L MCHC 30.4 D RDW 15.8 H Plt Count 177 MPV 10.6 H Neut % (Auto) 59.4 Lymph % (Auto) 28.8 [place] % (Auto) 9.3 Eos % (Auto) 1.8 Baso % (Auto) 0.5 Neut # (Auto) 3.38 Lymph # (Auto) 1.6 [place] # (Auto) 0.5 Eos # (Auto) 0.1 Baso # (Auto) 0.0 Nucleated RBC % (auto) 0 Nucleated RBCs # 0.0 APTT 69.1 H D Sodium Potassium Chloride Carbon Dioxide Anion Gap BUN Creatinine GFR Calculation Glucose POC Glucose 97 Calculated Osmolality Calcium Phosphorus Magnesium Total Bilirubin AST ALT Alkaline Phosphatase Total Protein Albumin Globulin Completed Studies During Hospitalization Category Date Time Status XR chest 1V portable [id number] Urgent Exams 02/26/22 19:16 Completed Laboratory Last Values WBC 5.7 10^3/uL (4.0-10.0) 03/02/22 05:00 Corrected WBC Cancelled 02/27/22 02:30 RBC 3.13 10^6/uL (4.1-5.3) L 03/02/22 05:00 Hgb 8.5 g/dL (11.5-15.3) L 03/02/22 05:00 Hct 28.0 % (37.0-47.0) L 03/02/22 05:00 MCV 89.5 fl (81-99) D 03/02/22 05:00 MCH 27.2 pg (28.0-34.0) L 03/02/22 05:00 MCHC 30.4 g/dL (30.0-36.0) D 03/02/22 05:00 RDW 15.8 % (12.1-15.1) H 03/02/22 05:00 Plt Count 177 10^3/cmm (130-400) 03/02/22 05:00 MPV 10.6 fL (7.4-10.4) H 03/02/22 05:00 Gran % Cancelled 02/27/22 02:30 Neut % (Auto) 59.4 % 03/02/22 05:00 Lymph % (Auto) 28.8 % 03/02/22 05:00 [place] % (Auto) 9.3 % 03/02/22 05:00 Eos % (Auto) 1.8 % 03/02/22 05:00 Baso % (Auto) 0.5 % 03/02/22 05:00 Neut # (Auto) 3.38 10^3/uL (1.8-7.7) 03/02/22 05:00 Lymph # (Auto) 1.6 10^3/uL (0.8-4.8) 03/02/22 05:00 [place] # (Auto) 0.5 10^3/uL (0.2-0.9) 03/02/22 05:00 Eos # (Auto) 0.1 10^3/uL (0.0-0.8) 03/02/22 05:00 Baso # (Auto) 0.0 10^3/uL (0.0-0.1) 03/02/22 05:00 Absolute Gran (auto) Cancelled 02/27/22 02:30 Nucleated RBC % (auto) 0 % 03/02/22 05:00 Nucleated RBCs # 0.0 /100WBC 03/02/22 05:00 APTT 29.3 SECONDS (23.9-36.7) D 03/02/22 12:30 Sodium 139 mmol/L (136-145) 03/02/22 05:00 Potassium 4.5 mmol/L (3.5-5.1) 03/02/22 05:00 Chloride 110 mmol/L (98-107) H 03/02/22 05:00 Carbon Dioxide 19 mmol/L (22-29) L 03/02/22 05:00 Anion Gap 14.5 (5-19) 03/02/22 05:00 BUN 40 mg/dL (6-20) H 03/02/22 05:00 Creatinine 2.4 mg/dL (0.5-0.9) H 03/02/22 05:00 GFR Calculation 23.0 mL/min (90-130) L 03/02/22 05:00 Glucose 117 mg/dL (65-115) H 03/02/22 05:00 POC Glucose 196 mg/dL (70-110) H 03/02/22 17:09 Calculated Osmolality 299 mOsm/kg (285-295) H 03/02/22 05:00 Uric Acid 8.5 mg/dL (2.4-5.7) H 02/28/22 07:38 Calcium 8.8 mg/dL (8.5-10.5) 03/02/22 05:00 Phosphorus 4.5 mg/dL (2.5-4.5) 03/02/22 05:00 Magnesium 1.7 mg/dL (1.7-2.3) 03/02/22 05:00 Total Bilirubin 0.2 mg/dL (0.15-1.2) 03/02/22 05:00 AST 30 U/L (0-32) 03/02/22 05:00 ALT 55 U/L (0-33) H 03/02/22 05:00 Alkaline Phosphatase 381 U/L (35-105) H 03/02/22 05:00 Troponin T Baseline 125 ng/L (0-10) H* 02/26/22 20:10 Troponin T 120 Minute 111.3 ng/L (0-10) H 02/26/22 21:42 Delta Troponin T -13.7 ABS# (0-10) L 02/26/22 21:42 Troponin T Hi Sens 6Hr 114.0 ng/L (0-10) H 02/27/22 02:30 Troponin T Hi Sens 6Hr Delta -11.0 ng/L (0-12) L 02/27/22 02:30 C-Reactive Protein 28.9 mg/L (0.0-4.9) H 02/27/22 02:30 NT-Pro-B Natriuret Pep 37515 pg/mL (0-125) H 02/26/22 20:10 Total Protein 6.2 g/dL (6.6-8.7) L 03/02/22 05:00 Albumin 2.6 g/dL (3.5-5.2) L 03/02/22 05:00 Globulin 3.6 g/dL (1.3-4.6) 03/02/22 05:00 Urine Color Yellow (Yellow) 02/28/22 15:00 Urine Appearance Cloudy (CLEAR) 02/28/22 15:00 Urine pH 5 (5-7) 02/28/22 15:00 Ur Specific [place] 1.015 (1.005-1.030) 02/28/22 15:00 Urine Protein 1+ (Negative) H 02/28/22 15:00 Urine Glucose (UA) Norm (Normal) 02/28/22 15:00 Urine Ketones Negative (Negative) 02/28/22 15:00 Urine Blood 3+ (Negative) H 02/28/22 15:00 Urine Nitrate Negative (Negative) 02/28/22 15:00 Urine Bilirubin Neg (Negative) 02/28/22 15:00 Urine Urobilinogen Norm mg/dL (Negative) 02/28/22 15:00 Ur Leukocyte Esterase 2+ (Negative) H 02/28/22 15:00 Urine RBC Too numerous to cnt /hpf (0-2) H 02/28/22 15:00 Urine WBC Too numerous to cnt /hpf (0-5) H 02/28/22 15:00 Ur Squamous Epith Cells 0-4 /hpf (0-5) H 02/28/22 15:00 Amorphous Sediment Not Reportable 02/28/22 15:00 Urine Bacteria 4+ /hpf (NONE) H 02/28/22 15:00 Fine Granular Casts 0-4 /lpf H 02/28/22 15:00 Urine Yeast 4+ /hpf H 02/28/22 15:00 Urine Opiates Screen Positive ng/mL (Negative) H 02/26/22 21:30 Ur Barbiturates Screen Negative ng/mL (Negative) 02/26/22 21:30 Ur Phencyclidine Scrn Negative ng/mL (Negative) 02/26/22 21:30 Ur Amphetamines Screen Negative ng/mL (Negative) 02/26/22 21:30 U Benzodiazepines Scrn Negative ng/mL (Negative) 02/26/22 21:30 Urine Cocaine Screen Negative ng/mL (Negative) 02/26/22 21:30 U Marijuana (THC) Screen Negative ng/mL (Negative) 02/26/22 21:30 Radiology Impressions Chest X-Ray 02/26/22 19:16 IMPRESSION: 1. Findings of bronchitis improved compared with 02/10/2022. 2. Small residual left pleural effusion. 3. Mild residual infiltrate right lung base. Recent Clincial Data Last Vital Signs Temp 98.2 F 03/02/22 15:48 Pulse 70 03/02/22 15:48 Resp 17 03/02/22 15:48 BP 128/89 03/02/22 15:48 Pulse Ox 97 03/02/22 15:48 O2 Del Method 03/02/22 15:48 Vital Signs Temp Pulse Resp BP BP Pulse Ox O2 Del Method 03/02/22 15:48 98.2 F 70 17 128/89 97 Room Air 03/02/22 11:57 97.8 F 73 17 146/102 97 Room Air 03/02/22 11:15 74 6 L 144/100 03/02/22 11:00 75 8 L 138/88 03/02/22 10:45 71 8 L 142/89 03/02/22 10:30 74 8 L 125/87 03/02/22 10:15 80 9 L 140/92 03/02/22 10:00 143/97 03/02/22 09:45 78 6 L 141/101 03/02/22 09:30 80 7 L 148/103 95 03/02/22 09:15 83 10 L 148/104 03/02/22 09:00 87 9 L 151/104 93 03/02/22 08:46 94 03/02/22 07:45 76 9 L 03/02/22 07:30 71 7 L 03/02/22 07:15 69 2 L 03/02/22 07:00 70 4 L 03/02/22 08:57 84 16 151/104 98 Room Air Intake & Output/Weight 02/28/22 03/01/22 03/02/22 03/03/22 06:59 06:59 06:59 06:59 Intake Total 3155.550 / 3155.550 3109.967 / 3109.967 2631.033 / 2631.033 1246.317 / 1246.317 Output Total 1000 / 1000 650 / 650 1450 / 1450 850 / 850 Balance 2155.550 / 2155.550 2459.967 / 2459.967 1181.033 / 1181.033 396.317 / 396.317 Vitals Last Vital Signs Temp 98.2 F 03/02/22 15:48 Pulse 70 03/02/22 15:48 Resp 17 03/02/22 15:48 BP 128/89 03/02/22 15:48 Pulse Ox 97 03/02/22 15:48 O2 Del Method 03/02/22 15:48 TS Medications Medications Acetaminophen (Acetaminophen 500 Mg Tablet) 500 mg PO Q4H PRN PRN Reason: fever Albuterol/Ipratropium (Ipratropium-Albuterol 3 Ml Neb) 3 ml INHALATION Q6H PRN PRN Reason: SHORTNESS OF BREATH Aspirin (Aspirin 81 Mg Ec Tablet) 81 mg PO DAILY [facility] Last Admin: 03/02/22 10:17 Dose: 81 mg Atorvastatin Calcium (Atorvastatin 40 Mg Tablet) 40 mg PO BEDTIME [facility] Last Admin: 03/01/22 20:26 Dose: 40 mg Clopidogrel Bisulfate (Clopidogrel 75 Mg Tablet) 75 mg PO DAILY [facility] Last Admin: 03/02/22 10:19 Dose: 75 mg Dextrose (Dextrose 50% Syringe 50 Ml) 25 ml IVP ONCE PRN; Protocol PRN Reason: hypoglycemia protocol Dextrose (Dextrose 50% Syringe 50 Ml) 50 ml IVP PRN PRN; Protocol PRN Reason: hypoglycemia protocol Ergocalciferol (Ergocalciferol (Vitamin D2) 50,000 Unit Capsule) 50,000 unit PO Q7D [facility] Famotidine (Famotidine 20 Mg Tablet) 20 mg PO BID [facility] Last Admin: 03/02/22 18:26 Dose: 20 mg Fluconazole (Fluconazole 100 Mg Tablet) 100 mg PO DAILY [facility] Last Admin: 03/02/22 10:16 Dose: 100 mg Gabapentin (Gabapentin 100 Mg Capsule) 100 mg PO TID [facility] Last Admin: 03/02/22 16:04 Dose: 100 mg Glucagon (Glucagon 1 Mg/Ml Inj 1 Ml) 1 mg IM ONCE PRN; Protocol PRN Reason: Adult Acute Hypoglycemia Prot. Heparin Sodium (Porcine) (Heparin 5,000 Unit/Ml Inj 1 Ml) 0 unit IV PRN PRN; Protocol PRN Reason: Heparin weight-base protocol Last Admin: 03/01/22 03:05 Dose: 2,400 unit Dextrose (D5w) 500 mls @ 100 mls/hr IV ONCE PRN; Protocol PRN Reason: Adult Acute Hypoglycemia Prot Heparin Sodium/Sodium Chloride (Heparin Drip) 25,000 unit in 500 mls @ 0 mls/hr IV .Q0M [facility]; Protocol Last Admin: 03/02/22 16:32 Dose: 22.83 unit/kg/hr, 29 mls/hr Ceftriaxone Sodium 1,000 mg/ (Sodium Chloride) 50 mls @ 100 mls/hr IV Q24H [facility]; Protocol Last Infusion: 03/02/22 11:17 Dose: Infused Lactated Ringer's (Lactated Ringers) 1,000 mls @ 50 mls/hr IV .Q20H [facility] Last Admin: 03/02/22 10:55 Dose: 50 mls/hr Insulin Glargine (Insulin Glargine 100 Units/1 Ml) 7 unit SUBCUT BID@0900,2100 [facility] Last Admin: 03/02/22 07:38 Dose: Not Given Insulin Human Lispro (Insulin Lispro 100 Unit/1 Ml) 0 unit SUBCUT TIDWM [facility]; Protocol Last Admin: 03/02/22 18:26 Dose: 1 unit Losartan Potassium (Losartan 50 Mg Tablet) 50 mg PO DAILY [facility] Ondansetron HCl (Ondansetron 2 Mg/Ml Sdv 2 Ml) 4 mg IVP Q6H PRN PRN Reason: NAUSEA AND VOMITING Last Admin: 03/02/22 05:08 Dose: 4 mg Senna/Docusate Sodium (Sennosides-Docusate Tablet) 1 tab PO DAILY [facility] Last Admin: 03/02/22 07:38 Dose: Not Given Sodium Bicarbonate (Sodium Bicarbonate 650 Mg Tablet) 650 mg PO QID [facility] Last Admin: 03/02/22 18:26 Dose: 650 mg Tamsulosin HCl (Tamsulosin 0.4 Mg Capsule) 0.4 mg PO BEDTIME [facility] Last Admin: 03/01/22 20:26 Dose: 0.4 mg Tramadol HCl (Tramadol 50 Mg Tablet) 50 mg PO Q8H PRN PRN Reason: MODERATE PAIN Last Admin: 03/02/22 05:12 Dose: 50 mg Discontinued Medications Bumetanide (Bumetanide 1 Mg Tablet) 1 mg PO DAILY [facility] Last Admin: 02/26/22 22:03 Dose: Not Given Carvedilol (Carvedilol 6.25 Mg Tablet) 3.125 mg PO BID [facility] Last Admin: 02/27/22 17:10 Dose: 3.125 mg Epoetin Yfn (Epoetin Yfn 10,000 Unit/Ml Inj) 10,000 unit SUBCUT NOW ONE Stop: 02/28/22 15:16 Last Admin: 02/28/22 16:09 Dose: 10,000 unit Ergocalciferol (Ergocalciferol (Vitamin D2) 50,000 Unit Capsule) 50,000 unit PO Q7D [facility] Fentanyl (Fentanyl 50 Mcg/Ml Inj 2ml) Confirm Administered Dose 100 mcg .ROUTE .STK-MED ONE Stop: 03/02/22 07:16 Furosemide (Furosemide 10 Mg/Ml Sdv 4ml) 40 mg IVP ONCE ONE Stop: 02/26/22 22:11 Last Admin: 02/27/22 01:44 Dose: 40 mg Heparin Sodium (Porcine) (Heparin 5,000 Unit/Ml Inj 1 Ml) 5,000 unit SUBCUT Q12H [facility] Last Admin: 02/26/22 22:03 Dose: Not Given Heparin Sodium (Porcine) (Heparin 5,000 Unit/Ml Inj 1 Ml) Confirm Administered Dose 5,000 unit .ROUTE .STK-MED ONE Stop: 03/02/22 07:10 Heparin Sodium (Porcine) (Heparin 5,000 Unit/Ml Inj 1 Ml) Confirm Administered Dose 5,000 unit .ROUTE .STK-MED ONE Stop: 03/02/22 08:13 Sodium Chloride (Sodium Chloride 0.9%) 1,000 mls @ 999 mls/hr IV .Q1H1M ONE Stop: 02/26/22 20:23 Last Infusion: 02/26/22 21:08 Dose: Infused calcium gluconate 0.9% NaCL (Calcium Gluconate 0.9% Nacl) 1 gm in 50 mls @ 50 mls/hr IV ONCE ONE Stop: 02/26/22 22:40 Last Infusion: 02/27/22 11:01 Dose: Infused Sodium Chloride (Sodium Chloride 0.9%) 1,000 mls @ 50 mls/hr IV .Q20H [facility] Last Infusion: 03/01/22 09:56 Dose: Infused Magnesium Sulfate (Magnesium Sulfate Premix) 2 gm in 50 mls @ 50 mls/hr IV ONCE ONE Stop: 02/27/22 08:36 Last Infusion: 02/27/22 11:01 Dose: Infused Sodium Chloride (Sodium Chloride 0.9%) 1,000 mls @ 999 mls/hr IV .Q1H1M ONE Stop: 02/27/22 22:23 Last Infusion: 02/28/22 07:00 Dose: Infused Lidocaine HCl (Lidocaine 1%) Confirm Administered Dose 3 mls @ as directed .ROUTE .STK-MED ONE Stop: 03/02/22 07:16 Sodium Chloride (Sodium Chloride 0.9%) Confirm Administered Dose 1,000 mls @ as directed .ROUTE .STK-MED ONE Stop: 03/02/22 07:59 Insulin Glargine (Insulin Glargine 100 Units/1 Ml) 15 unit SUBCUT BID [facility] Last Admin: 03/01/22 09:33 Dose: Not Given Insulin Glargine (Insulin Glargine 100 Units/1 Ml) 7 unit SUBCUT ONCE ONE Stop: 02/28/22 18:31 Last Admin: 02/28/22 18:23 Dose: 7 unit Midazolam HCl (Midazolam 1 Mg/Ml Inj 2 Ml) Confirm Administered Dose 2 mg .ROUTE .STK-MED ONE Stop: 03/02/22 07:16 Morphine Sulfate (Morphine 4 Mg/Ml Sdv 1 Ml) 4 mg IVP ONCE ONE Stop: 02/26/22 19:24 Last Admin: 02/26/22 20:07 Dose: 4 mg Morphine Sulfate (Morphine Ir 15 Mg Tablet) 15 mg PO Q6H PRN PRN Reason: pAIN Last Admin: 02/28/22 01:55 Dose: 15 mg Naloxone HCl (Naloxone 0.4 Mg/Ml Sdv) Confirm Administered Dose 0.4 mg .ROUTE .STK-MED ONE Stop: 03/02/22 08:19 Nitroglycerin (Nitroglycerin 5 Mg/Ml Sdv 10 Ml) Confirm Administered Dose 50 mg .ROUTE .STK-MED ONE Stop: 03/02/22 07:16 Pantoprazole Sodium (Pantoprazole Dr 40 Mg Tablet) 40 mg PO DAILY@12 [facility] Last Admin: 02/27/22 13:26 Dose: 40 mg Sodium Bicarbonate (Sodium Bicarbonate 650 Mg Tablet) 650 mg PO TID [facility] Last Admin: 03/02/22 10:17 Dose: 650 mg Sodium Polystyrene Sulfonate (Sodium Polystyrene Sulfonate 15 Gm/60 Ml Btl) 15 gm PO ONCE ONE Stop: 02/26/22 21:42 Last Admin: 02/26/22 22:03 Dose: 15 gm Allergies acetaminophen Adverse Reaction (Mild, Verified 02/28/22 08:43) ADR-Gastrointestinal Upset Home Medications glucagon HCl 1 mg solution for injection (Glucagon (HCl) Emergency Kit) 1 mg SUBCUT Q20M PRN hypoglycemia #3 ea 08/22/20 [Rx Confirmed 02/26/22] diphenhydramine HCl 25 mg tablet (Benadryl Allergy) 25 mg PO BEDTIME 01/22/22 [History Confirmed 02/26/22] insulin aspart U-100 100 unit/mL (3 mL) subcutaneous pen (Novolog Flexpen U-100 Insulin aspart) See Rx Instructions .Route .COMPLEX 01/22/22 [History Confirmed 02/26/22] ondansetron 4 mg disintegrating tablet 4 mg PO Q6H PRN nausea and vomiting #14 tabs 01/25/22 [Rx Confirmed 02/26/22] furosemide 20 mg tablet 20 mg PO DAILY@0800 PRN Weight gain #30 tabs 01/29/22 [Rx Confirmed 02/26/22] insulin glargine 100 unit/mL (3 mL) subcutaneous pen (Lantus Solostar U-100 Insulin) 15 unit (0.15 mL) SUBCUT BID #15 mL 01/29/22 [Rx Confirmed 02/26/22] albuterol sulfate 90 mcg/actuation aerosol inhaler 2 puff inhalation Q8H PRN shortness of breath or wheezing 02/07/22 [History Confirmed 02/26/22] bismuth subsalicylate 262 mg tablet (Pepto-Bismol) 2 tab PO Q1H PRN Heartburn 02/07/22 [History Confirmed 02/26/22] pantoprazole 40 mg tablet,delayed release 40 mg PO DAILY@12 02/07/22 [History Confirmed 02/26/22] tamsulosin 0.4 mg capsule 0.4 mg PO BEDTIME 02/07/22 [History Confirmed 02/26/22] aspirin 81 mg tablet,delayed release 81 mg PO DAILY 30 days #30 tabs 02/19/22 [Rx Confirmed 02/26/22] atorvastatin 40 mg tablet 20 mg PO BEDTIME 30 days #30 tabs 02/19/22 [Rx Confirmed 02/26/22] carvedilol 6.25 mg tablet 3.125 mg PO BID 30 days #30 tabs 02/19/22 [Rx Confirmed 02/26/22] ergocalciferol (vitamin D2) 1,250 mcg (50,000 unit) capsule (Vitamin D2) 50,000 unit PO Q7D 30 days #5 caps 02/19/22 [Rx Confirmed 02/26/22] gabapentin 100 mg capsule 100 mg PO TID 30 days #90 caps 02/19/22 [Rx Confirmed 02/26/22] Discharge Plan Discharge Patient Disposition: Home Condition: Stable Prescriptions: No Action Glucagon (HCl) Emergency Kit 1 mg recon soln 1 mg SUBCUT Q20M PRN (Reason: hypoglycemia) Qty: 3 3RF Rx Instructions: until target blood sugar attained ondansetron 4 mg tablet,disintegrating 4 mg PO Q6H PRN (Reason: nausea and vomiting) Qty: 14 0RF Pepto-Bismol 262 mg Tablet 2 tab PO Q1H PRN (Reason: Heartburn) Rx Instructions: do not exceed 16 tabs per 24 hrs tamsulosin 0.4 mg capsule 0.4 mg PO BEDTIME pantoprazole 40 mg tablet,delayed release (DR/EC) 40 mg PO DAILY@12 albuterol sulfate 90 mcg/actuation HFA aerosol inhaler 2 puff inhalation Q8H PRN (Reason: shortness of breath or wheezing) atorvastatin 40 mg Tablet 20 mg PO BEDTIME 30 Days Qty: 30 0RF carvedilol 6.25 mg Tablet 3.125 mg PO BID 30 Days Qty: 30 0RF aspirin 81 mg Tablet,Delayed Release (Dr/Ec) 81 mg PO DAILY 30 Days Qty: 30 0RF gabapentin 100 mg Capsule 100 mg PO TID 30 Days Qty: 90 0RF ergocalciferol (vitamin D2) [Vitamin D2] 1,250 mcg (50,000 unit) Capsule 50,000 unit PO Q7D 30 Days Qty: 5 0RF Rx Instructions: On Mondays diphenhydramine HCl [Benadryl Allergy] 25 mg Tablet 25 mg PO BEDTIME insulin aspart U-100 [Novolog Flexpen U-100 Insulin] 100 unit/mL (3 mL) Insulin Pen See Rx Instructions .ROUTE .COMPLEX Rx Instructions: SLIDING SCALE subcutaneously TID furosemide 20 mg Tablet 20 mg PO DAILY@0800 PRN (Reason: Weight gain) Qty: 30 0RF insulin glargine [Lantus Solostar U-100 Insulin] 100 unit/mL (3 mL) insulin p en 15 unit SUBCUT BID Qty: 15 3RF Discharge Orders: Transfer Out of Facility (Order); Ordered 03/02/22 Ordered By: Ruben Rust Referrals: Elizabeth Dougherty FNP [Primary Care Provider] - Patient Instructions: Opioid Safety Transfer Attestations Time Spent in Transfer Care: greater than 30 min Status at Transfer: Cognitive status at transfer: cognitively intact ; Behavioral status at transfer: cooperative and independent in ADL's ; Quality Metrics Clinical Quality Measures [ No reported AMI, CVA or VTE this stay] Coding Level of Care Code 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
[2022-03-02 20:13] LABS: SARS Covid-2 Antigen Negative (Negative)
[2022-03-02 21:08] LABS: Glucose Point of Care 150 mg/dL (70-110)
[2022-03-02] MEDS: atorvastatin 40 mg Tablet PO (21:40)
[2022-03-02] MEDS: tamsulosin 0.4 mg Capsule PO (21:40)
[2022-03-02] MEDS: insulin glargine 100 units/1 mL 7 UNIT SUBCUT (21:40)
[2022-03-02 22:27] LABS: Partial Thromboplastin Time 69.2 SECONDS (23.9-36.7)
[2022-03-03] VITALS (9 sets, daily range): BP systolic 116–140; BP diastolic 80–96; PULSE 17–78; RESP 16–19; TEMP 36.7–36.9; O2SAT 94–99
[2022-03-03 05:01] LABS: Basophils % 0.6 %; Eosinophils # 0.2 10^3/uL (0.0-0.8); Eosinophils % 4.1 %; Hematocrit 28.6 % (37.0-47.0); Hemoglobin 8.7 g/dL (11.5-15.3); Lymphocytes # 1.5 10^3/uL (0.8-4.8); Lymphocytes % 32.9 %; Mean Corpuscular HGB Conc 30.4 g/dL (30.0-36.0); Mean Corpuscular Hemoglobin 26.7 pg (28.0-34.0); Mean Corpuscular Volume 87.7 fl (81-99); Mean Platelet Volume 10.1 fL (7.4-10.4); Monocytes # 0.6 10^3/uL (0.2-0.9); Monocytes % 11.8 %; Neutrophils # 2.35 10^3/uL (1.8-7.7); Neutrophils % 50.2 %; Nucleated Red Blood Cells % 0 %; Platelet Count 202 10^3/cmm (130-400); Red Blood Count 3.26 10^6/uL (4.1-5.3); Red Cell Distribution Width 15.5 % (12.1-15.1); White Blood Count 4.7 10^3/uL (4.0-10.0)
[2022-03-03 05:20] LABS: Partial Thromboplastin Time 82.1 SECONDS (23.9-36.7)
[2022-03-03 05:29] LABS: Alanine Aminotransferase 35 U/L (0-33); Albumin Level 2.4 g/dL (3.5-5.2); Alkaline Phosphatase 289 U/L (35-105); Anion Gap 12.4 (5-19); Aspartate Amino Transferase 15 U/L (0-32); Blood Urea Nitrogen 36 mg/dL (6-20); Calcium 8.3 mg/dL (8.5-10.5); Carbon Dioxide 21 mmol/L (22-29); Chloride 114 mmol/L (98-107); Globulin 3.4 g/dL (1.3-4.6); Glomerular Filtration Rate 26.8 mL/min (90-130); Glucose 142 mg/dL (65-115); Magnesium 1.6 mg/dL (1.7-2.3); Osmolality Calculated 307 mOsm/kg (285-295); Phosphorus 3.8 mg/dL (2.5-4.5); Potassium 4.4 mmol/L (3.5-5.1); Sodium 143 mmol/L (136-145); Total Bilirubin 0.2 mg/dL (0.15-1.2); Total Protein 5.8 g/dL (6.6-8.7)
[2022-03-03 06:24] LABS: Glucose Point of Care 146 mg/dL (70-110)
[2022-03-03] MEDS: heparin drip 25,000 UNIT/500 ML PREMIX 27 UNIT IV (06:32)
[2022-03-03] MEDS: losartan 50 mg Tablet PO (08:10)
[2022-03-03] MEDS: clopidogrel 75 mg Tablet PO (08:10)
[2022-03-03] MEDS: sennosides-docusate Tablet 1 TAB PO (08:10)
[2022-03-03] MEDS: fluconazole 100 mg Tablet PO (08:10)
[2022-03-03] MEDS: famotidine 20 mg Tablet PO ×2 (08:10→16:11)
[2022-03-03] MEDS: insulin lispro 100 unit/1 mL SUBCUT ×2 (08:10→17:43)
[2022-03-03] MEDS: gabapentin 100 mg Capsule PO ×2 (08:10→16:11)
[2022-03-03] MEDS: aspirin 81 mg EC Tablet PO (08:10)
[2022-03-03] MEDS: sodium bicarbonate 650 mg Tablet PO ×3 (08:10→16:11)
[2022-03-03] MEDS: cefTRIAXone 1,000 MG in sodium chloride 0.9% (plus) 50 ML 100 MG IV (08:14)
[2022-03-03] MEDS: insulin glargine 100 units/1 mL 7 UNIT SUBCUT (08:14)
--- NOTE | 2022-03-03 10:08 | PM.PN ---
Subjective Subjective: Patient is stable. Denies chest pain today. Awaiting bed placement Vitals/I&O/Wt Last Vital Signs Temp 98.4 F 03/03/22 07:32 Pulse 70 03/03/22 07:32 Resp 16 03/03/22 07:32 BP 140/96 03/03/22 08:10 Pulse Ox 99 03/03/22 07:32 O2 Del Method 03/03/22 08:00 03/02/22 03/03/22 03/03/22 22:59 06:59 14:59 Intake Total 1134.167 / 2020.484 643.833 / 2664.317 Output Total 850 / 850 750 / 1600 Balance 284.167 / 1170.484 -106.167 / 1064.317 Physical Exam Narrative: GENERAL: Patient is alert, awake and oriented x3. [] NECK: No jugular vein distension. [] HEENT: No cyanosis. No icterus. No pallor. [] HEART: Regular S1 and S2. No murmur, rub or gallop. [] LUNGS: Clear to auscultate bilaterally. [] ABDOMEN: Soft, nontender and nondistended. Positive bowel sounds. No guarding, rebound or tenderness. [] CENTRAL NERVOUS SYSTEM: Grossly nonfocal. [] EXTREMITIES: Lower extremities with 1+ edema bilaterally. Pulses palpable in the lower extremities, both dorsalis pedis and posterior tibial. [] Urinary Catheter Management: Sanders: Cath Placed During This Visit: yes Reason for Continuing Indwelling Catheter: Chronic Indwelling Urinary Catheter on Admission Urinary Catheter Date of Insertion: 02/28/22 Urinary Catheter Time of Insertion: 15:14 Data : 03/03/22 04:15 03/03/22 04:15 Micro: Microbiology 02/28/22 15:00 Urine Culture - Final Urine,Clean Catch Enterobacter hormaechei A&P Assessment and plan (1) Chest pain: Patient is stable here today. Patient underwent coronary angiogram yesterday that showed severe mid LAD stenosis, critical ostial large sized diagonal artery stenosis, SALESP[employer] PIANOS AND ORGANS of RCA. We do not have CT surgery backup available. Patient has been accepted at [facility] for evaluation by CT surgery for CABG. Continue aspirin. We will continue holding Plavix and will continue with heparin drip. Creatinine has improved since yesterday. Status: Acute (2) Elevated troponin: Downtrending Status: Acute (3) Acute kidney injury superimposed on chronic kidney disease: Status: Resolved (4) CHF (congestive heart failure), NYHA class III: LVEF=40% Status: Acute Qualifiers: Congestive heart failure type: systolic Congestive heart failure chronicity: acute on chronic Qualified Code(s): I50.23 - Acute on chronic systolic (congestive) heart failure (5) Neurogenic bladder: Status: Acute (6) Type 1 diabetes mellitus: Status: Deleted (7) Hyperlipidemia: Status: Inactive Attestations Medical Necessity Statement*: Care expected to cross 2 midnights Coding Level of Care Code Acute Financial Associate for [facility] 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
--- NOTE | 2022-03-03 11:06 | P.PN_ITS ---
Subjective Subjective: no new complaints Vitals/I&O/Wt Last Vital Signs Temp 98.4 F 03/03/22 07:32 Pulse 70 03/03/22 07:32 Resp 16 03/03/22 07:32 BP 140/96 03/03/22 08:10 Pulse Ox 99 03/03/22 07:32 O2 Del Method 03/03/22 08:00 03/02/22 03/03/22 03/03/22 22:59 06:59 14:59 Intake Total 1134.167 / 2020.484 643.833 / 2664.317 50 50 Output Total 850 / 850 750 / 1600 Balance 284.167 / 1170.484 -106.167 / 1064.317 50 Physical Exam Urinary Catheter Management: Crowder: Cath Placed During This Visit: yes Reason for Continuing Indwelling Catheter: Chronic Indwelling Urinary Catheter on Admission Urinary Catheter Date of Insertion: 02/28/22 Urinary Catheter Time of Insertion: 15:14 Data : 03/03/22 04:15 03/03/22 04:15 Micro: Microbiology 02/28/22 15:00 Urine Culture - Final Urine,Clean Catch Enterobacter hormaechei Other data: seen via telehealth with assistance of RN at bedside A&P Assessment and plan (1) Acute kidney injury superimposed on chronic kidney disease: Status: Acute Plan 1. Chronic kidney disease, serologic workup unremarkable, likely diabetic and hypertensive renal disease. Renal function stable after cardiac cath - d/c IVF 2. Urinary tract infection, enterobacter, on IV ceftriaxone. D/C crowder 3. Critical CAD, ischemic cardiomyopathy, planned transfer to [facility] for CABG 4. Hypertension, losartan 50 mg daily started today. Resume outpatient carvedilol if ok with cardiology 5. Insulin dependent DM 6. Anemia, iron replete, consider epoeitin 7. Metabolic acidosis, improved, continue oral sodium bicarbonate 8. Poor nutrition Attestations Medical Necessity Statement*: see above Time Spent in Patient Care: 16 - 35 minutes Coding Level of Care Code Acute Double Surface Operator for [facility] Diagnoses Acute kidney injury superimposed on chronic kidney disease N17.9; N18.9
[2022-03-03 11:14] LABS: Glucose Point of Care 100 mg/dL (70-110)
[2022-03-03 14:09] LABS: Partial Thromboplastin Time 71.2 SECONDS (23.9-36.7)
--- NOTE | 2022-03-03 15:19 | PM.PN ---
Subjective Subjective: Seen and examined at bedside. Still awaiting transfer to [facility]. Denies any current complaints of chest pain dyspnea or palpitations. Has a slight headache today. Medications: Reviewed: Yes Medication Review Details: Current Medications Acetaminophen (Acetaminophen 500 Mg Tablet) 500 mg PO Q4H PRN PRN Reason: fever Albuterol/Ipratropium (Ipratropium-Albuterol 3 Ml Neb) 3 ml INHALATION Q6H PRN PRN Reason: SHORTNESS OF BREATH Aspirin (Aspirin 81 Mg Ec Tablet) 81 mg PO DAILY [facility] Last Admin: 03/01/22 09:20 Dose: 81 mg Atorvastatin Calcium (Atorvastatin 40 Mg Tablet) 40 mg PO BEDTIME [facility] Last Admin: 02/28/22 21:02 Dose: 40 mg Clopidogrel Bisulfate (Clopidogrel 75 Mg Tablet) 75 mg PO DAILY [facility] Last Admin: 03/01/22 09:20 Dose: 75 mg Dextrose (Dextrose 50% Syringe 50 Ml) 25 ml IVP ONCE PRN; Protocol PRN Reason: hypoglycemia protocol Dextrose (Dextrose 50% Syringe 50 Ml) 50 ml IVP PRN PRN; Protocol PRN Reason: hypoglycemia protocol Ergocalciferol (Ergocalciferol (Vitamin D2) 50,000 Unit Capsule) 50,000 unit PO Q7D [facility] Famotidine (Famotidine 20 Mg Tablet) 20 mg PO BID [facility] Last Admin: 03/01/22 09:20 Dose: 20 mg Fluconazole (Fluconazole 100 Mg Tablet) 100 mg PO DAILY [facility] Last Admin: 03/01/22 09:20 Dose: 100 mg Gabapentin (Gabapentin 100 Mg Capsule) 100 mg PO TID [facility] Last Admin: 03/01/22 09:20 Dose: 100 mg Glucagon (Glucagon 1 Mg/Ml Inj 1 Ml) 1 mg IM ONCE PRN; Protocol PRN Reason: Adult Acute Hypoglycemia Prot. Heparin Sodium (Porcine) (Heparin 5,000 Unit/Ml Inj 1 Ml) 0 unit IV PRN PRN; Protocol PRN Reason: Heparin weight-base protocol Last Admin: 03/01/22 03:05 Dose: 2,400 unit Dextrose (D5w) 500 mls @ 100 mls/hr IV ONCE PRN; Protocol PRN Reason: Adult Acute Hypoglycemia Prot Sodium Chloride (Sodium Chloride 0.9%) 1,000 mls @ 50 mls/hr IV .Q20H [facility] Last Admin: 02/28/22 14:31 Dose: 100 mls/hr Heparin Sodium/Sodium Chloride (Heparin Drip) 25,000 unit in 500 mls @ 0 mls/hr IV .Q0M [facility]; Protocol Last Titration: 03/01/22 03:12 Dose: 22.05 unit/kg/hr, 28 mls/hr Insulin Glargine (Insulin Glargine 100 Units/1 Ml) 7 unit SUBCUT BID@0900,2100 SHAY Insulin Human Lispro (Insulin Lispro 100 Unit/1 Ml) 0 unit SUBCUT TIDWM [facility]; Protocol Last Admin: 03/01/22 08:14 Dose: Not Given Ondansetron HCl (Ondansetron 2 Mg/Ml Sdv 2 Ml) 4 mg IVP Q6H PRN PRN Reason: NAUSEA AND VOMITING Last Admin: 02/28/22 22:21 Dose: 4 mg Senna/Docusate Sodium (Sennosides-Docusate Tablet) 1 tab PO DAILY [facility] Last Admin: 03/01/22 09:21 Dose: Not Given Tamsulosin HCl (Tamsulosin 0.4 Mg Capsule) 0.4 mg PO BEDTIME [facility] Last Admin: 02/28/22 21:02 Dose: 0.4 mg Tramadol HCl (Tramadol 50 Mg Tablet) 50 mg PO Q8H PRN PRN Reason: MODERATE PAIN Last Admin: 02/28/22 22:21 Dose: 50 mg Vitals/I&O/Wt Last Vital Signs Temp 98.0 F 03/03/22 11:43 Pulse 78 03/03/22 14:00 Resp 16 03/03/22 11:43 BP 126/81 03/03/22 11:43 Pulse Ox 96 03/03/22 11:43 O2 Del Method 03/03/22 11:43 03/03/22 03/03/22 03/03/22 06:59 14:59 22:59 Intake Total 643.833 / 2664.317 50 / 50 Output Total 750 / 1600 700 / 700 Balance -106.167 / 1064.317 -650 / -650 Physical Exam Narrative: General: No acute distress, AO x3 HEENT: PERRLA, pupils bilaterally equal and reactive, pallors not present Chest: Normal vesicular breath sounds, no added sounds, equal good air entry bilaterally CVS: S1-S2 regular, no murmurs, no tachycardia, no gallops, no rubs Abdomen: Soft, nontender, no organomegaly, bowel sounds present Neuro: No focal deficits, no facial deformity, AO x3, power 5/5 in all limbs Urinary Catheter Management: Sanders: Cath Placed During This Visit: yes Reason for Continuing Indwelling Catheter: Chronic Indwelling Urinary Catheter on Admission Urinary Catheter Date of Insertion: 02/28/22 Urinary Catheter Time of Insertion: 15:14 Data : 03/03/22 04:15 03/03/22 04:15 Micro: Microbiology 02/28/22 15:00 Urine Culture - Final Urine,Clean Catch Enterobacter hormaechei A&P Assessment and plan (1) Chest pain: angiogram shows three-vessel disease.? We do not have availability of cardiovascular surgery so transfer was arranged to [place], under the care of of Dr. Gregorio.? Dr. Dickerson conferred with this physician who accepted her.? Status: Acute (2) Elevated troponin: Status: Acute (3) Acute kidney injury superimposed on chronic kidney disease: Continue hydration Monitor renal function for improvement Monitor for pulmonary edema which is occurred in the past. Last urine culture demonstrated yeast. Fluconazole added. Urine culture growing enterobacter sp. Continue Rocephin Appreciate nephrology consultation Status: Acute (4) CHF (congestive heart failure), NYHA class III: Status: Acute Qualifiers: Congestive heart failure type: systolic Congestive heart failure chronicity: acute on chronic Qualified Code(s): I50.23 - Acute on chronic systolic (congestive) heart failure (5) Neurogenic bladder: Continue Sanders This was changed on February 28 Status: Acute (6) Type 1 diabetes mellitus: Sliding scale insulin Status: Acute (7) Hyperlipidemia: Status: Acute Plan Hyperkalemia, resolved Full code Heparin for DVT prophylaxis Attestations Medical Necessity Statement*: awaiting transfer to [facility] for CABG Coding Level of Care Code Acute Outplacement Consultant for [facility] 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
--- NOTE | 2022-03-03 16:59 | PC.NURSE ---
Report called to [facility] nurse receiving report was ROLA Figueroa. Awaiting approval of patients insurance for transport.
[2022-03-03 17:10] LABS: Glucose Point of Care 176 mg/dL (70-110)
--- NOTE | 2022-03-03 18:40 | PC.NURSE ---
Patient left facility to transfer to [facility]. VS stable upon departure.
== END 2022-03-03 18:41 | disposition short-term general hospital (02) | DRG 286 ==
LOC: ER 21:38 → MEDSURG 22:10
PROVIDERS: Internal Medicine; Internal Medicine Nephrology; Admitting Provider Internal Medicine; Emergency Provider Emergency Medicine; PCP Nurse Practitioner Family; Visit Provider Student in an Organized Health Care Education/Training Program
PROC: 4A023N7 Measurement of Cardiac Sampling and Pressure, Left Heart, Percutaneous Approach (ICD-10-PCS; principal; 2022-03-02 08:50)
DX: I25.110 Atherosclerotic heart disease of native coronary artery with unstable angina pectoris (principal); I50.23 Acute on chronic systolic (congestive) heart failure; I13.0 Hypertensive heart and chronic kidney disease with heart failure and stage 1 through stage 4 chronic kidney disease, or unspecified chronic kidney disease; N17.9 Acute kidney failure, unspecified; E10.65 Type 1 diabetes mellitus with hyperglycemia; E10.43 Type 1 diabetes mellitus with diabetic autonomic (poly)neuropathy; K31.84 Gastroparesis; E10.40 Type 1 diabetes mellitus with diabetic neuropathy, unspecified; E10.22 Type 1 diabetes mellitus with diabetic chronic kidney disease; N18.9 Chronic kidney disease, unspecified; Z86.16 Personal history of COVID-19; N13.9 Obstructive and reflux uropathy, unspecified; E87.5 Hyperkalemia; D63.1 Anemia in chronic kidney disease; F41.9 Anxiety disorder, unspecified; Q07.00 Arnold-Chiari syndrome without spina bifida or hydrocephalus; Z79.82 Long term (current) use of aspirin; Z79.51 Long term (current) use of inhaled steroids; Z87.01 Personal history of pneumonia (recurrent); J44.9 Chronic obstructive pulmonary disease, unspecified; N31.9 Neuromuscular dysfunction of bladder, unspecified; Z90.2 Acquired absence of lung [part of]; F17.210 Nicotine dependence, cigarettes, uncomplicated; I27.20 Pulmonary hypertension, unspecified; Z87.440 Personal history of urinary (tract) infections
CPT/HCPCS: 36415; 36416; 51702; 71045; 80048; 80053; 80306; 81001; 82962; 83735; 83880; 84100; 84484; 84550; 85025; 85730; 86140; 87077; 87086; 87186; 87426; 93005; 93458; 96360; 96365; 96372; 96375; 99152; 99153; 99285; C1769; C1887; C1894; J0610; J0696; J1644; J1815; J1940; J2250; J2270; J2310; J2405; J3010; J3475; J3490; J7030; Q3014; Q4081; Q9967

== ENCOUNTER 2022-03-24 20:00 | Emergency (ER) | payer BC, MEDICAID, SELFPAY ==
[2022-03-24 20:04] VITALS: BP 154/89; PULSE 93; RESP 16; TEMP 36.6; O2SAT 98
--- NOTE | 2022-03-24 23:01 | CTR_ITS ---
PROCEDURE INFORMATION: Exam: CT Abdomen And Pelvis Without Contrast Exam date and time: 03/24/2022 11:34 PM Age: 36 years old Clinical indication: Abdominal pain; Other: Bilateral - stage 3 renal failure; Prior surgery; Surgery date: 6+ months; Surgery type: Cholecystectomy; Patient HX: PT C/O bilateral flank pain and states it feels like her kidneys are shutting down. PT has stage 3 renal failure TECHNIQUE: Imaging protocol: Computed tomography of the abdomen and pelvis without contrast. Radiation optimization: All CT scans at this facility use at least one of these dose optimization techniques: automated exposure control; mA and/or kV adjustment per patient size (includes targeted exams where dose is matched to clinical indication); or iterative reconstruction. COMPARISON: CT kidney stone [id number] 02/04/2022 10:23 PM RADIATION DOSE METRICS: Total DLP (mGy-cm): 412.28 FINDINGS: Lungs: No significant acute finding in the lower lungs. Previously seen pleural effusions have resolved. Diaphragm: There is elevation of the left hemidiaphragm, similar to the prior exam. Liver: Unremarkable. Gallbladder and bile ducts: Prior cholecystectomy, no significant biliary tree dilation. Pancreas: Unremarkable. Spleen: Unremarkable. Adrenal glands: Unremarkable. Kidneys and ureters: No significant hydronephrosis of either kidney. No visible renal or ureteral calculus. There is again parenchymal scarring/thinning involving the lower pole of the left kidney, not significantly changed. Mild left perinephric stranding. This is a nonspecific appearance and could be chronic. Possibility of pyelonephritis should also be considered, please correlate clinically. The previously seen right perinephric stranding has essentially resolved in the interval. Stomach and bowel: The stomach appears somewhat distended at the time of scanning. Please correlate clinically. No significant bowel distention. There are no CT findings to strongly suggest diverticulitis. Appendix: The appendix is visualized and appears normal. Intraperitoneal space: No free intraperitoneal air, or ascites. Vasculature: No evidence for abdominal aortic aneurysm. Lymph nodes: Several mildly enlarged inguinal lymph nodes bilaterally, similar to the prior exam. Urinary bladder: No visible calculus in the urinary bladder. Suspect moderate diffuse urinary bladder wall thickening. While nonspecific, this could indicate evidence for cystitis. Please correlate clinically. Moderate amount of gas in the urinary bladder. This is likely secondary to recent catheterization. If that has not been performed, this could also indicate evidence for bladder infection, or less likely fistula to the urinary bladder. Reproductive: Essentially unremarkable for age. Bones/joints: There is bilateral L5 spondylolysis, with grade 1 spondylolisthesis, similar to the prior exam. Soft tissues: No significant acute finding. CT/CT abdomen pelvis wo con [id number] IMPRESSION: 1. No significant hydronephrosis of either kidney. No visible renal or ureteral calculus. 2. Mild left perinephric stranding. While not specific, pyelonephritis should be considered. See additional details/discussion above. 3. Apparent diffuse urinary bladder wall thickening, possibly related to cystitis. Gas in the urinary bladder, see above. 4. Normal appendix. 5. Somewhat distended stomach. 6. No free air or bowel distention. 7. Other findings discussed above.
[2022-03-25] MEDS: morphine 4 mg/mL SDV 1 mL IVP ×2 (00:08→03:24)
[2022-03-25] MEDS: ondansetron 2 mg/ML SDV 2 mL 4 MG IVP (00:08)
[2022-03-25] MEDS: sodium chloride 0.9% 1,000 ML 999 ML IV (00:10)
[2022-03-25 00:24] LABS: Basophils # 0.1 10^3/uL (0.0-0.1); Basophils % 0.9 %; Eosinophils # 0.3 10^3/uL (0.0-0.8); Eosinophils % 4.2 %; Hematocrit 37.9 % (37.0-47.0); Hemoglobin 11.8 g/dL (11.5-15.3); Lymphocytes # 2.5 10^3/uL (0.8-4.8); Lymphocytes % 38.5 %; Mean Corpuscular HGB Conc 31.1 g/dL (30.0-36.0); Mean Corpuscular Hemoglobin 26.2 pg (28.0-34.0); Monocytes # 0.6 10^3/uL (0.2-0.9); Monocytes % 8.8 %; Neutrophils # 3.07 10^3/uL (1.8-7.7); Neutrophils % 47.4 %; Nucleated Red Blood Cells % 0 %; Platelet Count 265 10^3/cmm (130-400); Red Blood Count 4.51 10^6/uL (4.1-5.3); Red Cell Distribution Width 14.5 % (12.1-15.1); White Blood Count 6.5 10^3/uL (4.0-10.0)
[2022-03-25 00:32] LABS: Ketone (Acetest) Serum Negative (Negative)
[2022-03-25 00:40] LABS: Alanine Aminotransferase 69 U/L (0-33); Albumin Level 3.9 g/dL (3.5-5.2); Alkaline Phosphatase 148 U/L (35-105); Anion Gap 19.2 (5-19); Aspartate Amino Transferase 29 U/L (0-32); Blood Urea Nitrogen 57 mg/dL (6-20); Calcium 9.3 mg/dL (8.5-10.5); Carbon Dioxide 22 mmol/L (22-29); Chloride 100 mmol/L (98-107); Globulin 4.2 g/dL (1.3-4.6); Glomerular Filtration Rate 20.1 mL/min (90-130); Glucose 209 mg/dL (65-115); Lipase 71 U/L (13-60); Magnesium 1.7 mg/dL (1.7-2.3); Osmolality Calculated 304 mOsm/kg (285-295); Phosphorus 5.8 mg/dL (2.5-4.5); Potassium 5.2 mmol/L (3.5-5.1); Sodium 136 mmol/L (136-145); Total Bilirubin 0.2 mg/dL (0.15-1.2); Total Protein 8.1 g/dL (6.6-8.7)
[2022-03-25 02:58] LABS: Bilirubin Urine Negative (Negative); Blood Urine Moderate (Negative); Glucose Urine UA Negative (Normal); Ketones Urine Negative (Negative); Leukocyte Esterase Urine Trace (Negative); Nitrate Urine Negative; Protein Urine 3+ (Negative); Urine Appearance Clear (CLEAR); Urobilinogen Urine 0.2 mg/dL (Negative); pH Urine 5.5 (5-7)
[2022-03-25 03:07] LABS: Add Urine Culture? Yes; Add Urine Microscopic? YES; Bacteria Urine 4+ /hpf; Urine Color Light Yellow (Yellow); WBC Urine >100 /hpf (0-5)
--- NOTE | 2022-03-25 03:21 | ED_ITS ---
HPI - Abdominal Pain General: Chief Complaint: Abdominal Pain Stated Complaint: back/side pain Time Seen by Provider: 03/24/22 22:50 Source: patient History of Present Illness: 36-year-old female insulin-dependent diabetic with chronic kidney disease. She presents with bilateral flank pain for the last week or so but it has been much worse the past 2 days. She has been nauseated. She has not vomited. She has not had a fever that she knows of. She states that she has had significant diarrhea as well. No sick contacts at home. She says that it feels like my kidneys are shutting down again MD elicited complaint: abdominal pain and flank pain Pertinent past history: other Onset (ago): day(s) Pain Consistency: constant Location: L flank and R flank Severity: moderate Quality: aching Radiation: none Migration to: no migration Exacerbating factors: movement Relieving factors: nothing Associated Symptoms: Reports chills, diarrhea, nausea and poor appetite; Denies constipation, fever(s), hematochezia, hematuria and vomiting Related Data: Date of Last Menstrual Period: 07/24/21 Review of Systems Const: Reports: chills; Denies: fever(s) ENMT: Denies: throat pain Card: Denies: chest pain Resp: Denies: dyspnea GI: Reports: nausea and diarrhea; Denies: vomiting, constipation or hematochezia : Denies: hematuria PFSH ED PFSH: Medical History Acute hyperglycemia Acute kidney injury superimposed on chronic kidney disease Anemia Anxiety Arnold-Chiari malformation CAD (coronary artery disease) Celiac disease CHF (congestive heart failure), NYHA class III Chronic headache Community acquired pneumonia Complicated UTI (urinary tract infection) COVID-19 Cystitis Diabetic gastroparesis -continue Reglan Diabetic neuropathy associated with type 1 diabetes mellitus DKA (diabetic ketoacidoses) Drug abuse Esophagitis Headache, common migraine, intractable, with status migrainosus History of pancreatitis HTN (hypertension) Hyperlipidemia Long-term insulin use Lymphadenitis Metabolic acidosis Migraine headache Neurogenic bladder Non-alcoholic fatty liver disease Pancreatitis PID (pelvic inflammatory disease) Pleural effusion 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 Pulmonary hypertension Pyelonephritis Recurrent UTI Respiratory failure Sepsis Tobacco dependence Transaminitis Uncontrolled type 1 diabetes mellitus Ureterolithiasis Surgical History History of cholecystectomy History of endoscopy History of lung surgery -s/p LLL lobectomy secondary to cavitary pneumonia (2017) Family History Grandfather Diabetes Other Heart disease Hypertension Social History Smoking and tobacco status: current every day smoker cigarettes Packs smoked per day: 0.5 Second hand smoke exposure: Yes Alcohol intake: never Household members: children Housing: House Marital status: Single Current occupational status: unemployed Female Reproductive History: Date of last menstrual period: 07/24/21 Physical Exam Const: GENERAL APPEARANCE: cooperative, ill appearing (Mildly) and frail appearing (Mildly for age) HENMT: COMMON NORMALS: normocephalic, atraumatic and Normal external nose present HEAD & SCALP: normocephalic and atraumatic FACE & SINUS: normal facial exam and face symmetric NOSE: Normal external nose present Eye: COMMON NORMALS: Equal, round and reactive pupils present and EOMs intact bilaterally PUPIL: Yes Equal, round and reactive pupils present Neck/C-Spine: GENERAL: Yes trachea midline Chest: CHEST: Yes Symmetrical chest wall rise Resp: COMMON NORMALS: normal respiratory effort, No use of accessory muscles and clear to auscultation bilaterally AUSCULTATION: clear to auscultation bilaterally Cardio: COMMON NORMALS: regular rate and regular rhythm RATE: regular rate RHYTHM: regular rhythm Course Vital Signs: Vital signs: Vital Signs Temperature 97.9 F 03/24/22 20:04 Pulse Rate 93 03/24/22 20:04 Respiratory Rate 16 03/24/22 20:04 Blood Pressure 154/89 03/24/22 20:04 Pulse Oximetry 98 03/24/22 20:04 Oxygen Delivery Me thod 03/24/22 20:04 MDM - Abdominal Pain Medical Decision Making Creatinine is just above her baseline at 2.7. Potassium is 5.2. BUN is 57. She is given 2 L of fluid. She is urinated. Urinalysis shows greater than 100 white blood cells with leukocyte esterase positive. Her CBC is normal. She is feeling better after pain medication, antiemetic, and fluids. She is covered with a gram of Rocephin here. She will be allowed home on oral antibiotics, pain medication and antiemetic. Her CT shows no visible obstruction in the renal system. She has mild perinephric stranding on the left with bladder wall thickening consistent with pyelonephritis. Lab Data : 03/25/22 00:09 03/25/22 00:09 Labs/Radiology: Radiology Impressions Abdomen/Pelvis CT 03/24/22 23:01 IMPRESSION: 1. No significant hydronephrosis of either kidney. No visible renal or ureteral calculus. 2. Mild left perinephric stranding. While not specific, pyelonephritis should be considered. See additional details/discussion above. 3. Apparent diffuse urinary bladder wall thickening, possibly related to cystitis. Gas in the urinary bladder, see above. 4. Normal appendix. 5. Somewhat distended stomach. 6. No free air or bowel distention. 7. Other findings discussed above. Laboratory Results WBC 6.5 10^3/uL (4.0-10.0) 03/25/22 00:09 RBC 4.51 10^6/uL (4.1-5.3) 03/25/22 00:09 Hgb 11.8 g/dL (11.5-15.3) 03/25/22 00:09 Hct 37.9 % (37.0-47.0) 03/25/22 00:09 MCV 84.0 fl (81-99) 03/25/22 00:09 MCH 26.2 pg (28.0-34.0) L 03/25/22 00:09 MCHC 31.1 g/dL (30.0-36.0) 03/25/22 00:09 RDW 14.5 % (12.1-15.1) 03/25/22 00:09 Plt Count 265 10^3/cmm (130-400) 03/25/22 00:09 MPV 10.0 fL (7.4-10.4) 03/25/22 00:09 Neut % (Auto) 47.4 % 03/25/22 00:09 Lymph % (Auto) 38.5 % 03/25/22 00:09 [place] % (Auto) 8.8 % 03/25/22 00:09 Eos % (Auto) 4.2 % 03/25/22 00:09 Baso % (Auto) 0.9 % 03/25/22 00:09 Neut # (Auto) 3.07 10^3/uL (1.8-7.7) 03/25/22 00:09 Lymph # (Auto) 2.5 10^3/uL (0.8-4.8) 03/25/22 00:09 [place] # (Auto) 0.6 10^3/uL (0.2-0.9) 03/25/22 00:09 Eos # (Auto) 0.3 10^3/uL (0.0-0.8) 03/25/22 00:09 Baso # (Auto) 0.1 10^3/uL (0.0-0.1) 03/25/22 00:09 Nucleated RBC % (auto) 0 % 03/25/22 00:09 Nucleated RBCs # 0.0 /100WBC 03/25/22 00:09 Sodium 136 mmol/L (136-145) 03/25/22 00:09 Potassium 5.2 mmol/L (3.5-5.1) H 03/25/22 00:09 Chloride 100 mmol/L (98-107) 03/25/22 00:09 Carbon Dioxide 22 mmol/L (22-29) 03/25/22 00:09 Anion Gap 19.2 (5-19) H 03/25/22 00:09 BUN 57 mg/dL (6-20) H 03/25/22 00:09 Creatinine 2.7 mg/dL (0.5-0.9) H 03/25/22 00:09 GFR Calculation 20.1 mL/min (90-130) L 03/25/22 00:09 Glucose 209 mg/dL (65-115) H 03/25/22 00:09 Calculated Osmolality 304 mOsm/kg (285-295) H 03/25/22 00:09 Calcium 9.3 mg/dL (8.5-10.5) 03/25/22 00:09 Phosphorus 5.8 mg/dL (2.5-4.5) H 03/25/22 00:09 Phosphorus Cancelled 03/25/22 00:09 Magnesium 1.7 mg/dL (1.7-2.3) 03/25/22 00:09 Magnesium Cancelled 03/25/22 00:09 Total Bilirubin 0.2 mg/dL (0.15-1.2) 03/25/22 00:09 AST 29 U/L (0-32) 03/25/22 00:09 ALT 69 U/L (0-33) H 03/25/22 00:09 Alkaline Phosphatase 148 U/L (35-105) H 03/25/22 00:09 Total Protein 8.1 g/dL (6.6-8.7) 03/25/22 00:09 Albumin 3.9 g/dL (3.5-5.2) 03/25/22 00:09 Globulin 4.2 g/dL (1.3-4.6) 03/25/22 00:09 Lipase 71 U/L (13-60) H 03/25/22 00:09 Lipase Cancelled 03/25/22 00:09 Urine Color Light yellow (Yellow) 03/25/22 02:50 Urine Appearance Clear (CLEAR) 03/25/22 02:50 Urine pH 5.5 (5-7) 03/25/22 02:50 Ur Specific [place] 1.020 (1.005-1.030) 03/25/22 02:50 Urine Protein 3+ (Negative) A 03/25/22 02:50 Urine Glucose (UA) Negative (Normal) 03/25/22 02:50 Urine Ketones Negative (Negative) 03/25/22 02:50 Urine Blood Moderate (Negative) A 03/25/22 02:50 Urine Nitrate Negative 03/25/22 02:50 Urine Bilirubin Negative (Negative) 03/25/22 02:50 Urine Urobilinogen 0.2 mg/dL (Negative) 03/25/22 02:50 Ur Leukocyte Esterase Trace (Negative) A 03/25/22 02:50 Urine RBC 5-10 /hpf (0-2) H 03/25/22 02:50 Urine WBC >100 /hpf (0-5) H 03/25/22 02:50 Ur Squamous Epith Cells 5-10 /hpf (0-5) H 03/25/22 02:50 Amorphous Sediment Not Reportable 03/25/22 02:50 Urine Bacteria 4+ /hpf (NONE) H 03/25/22 02:50 Serum Ketones Negative (Negative) 03/25/22 00:20 Discharge Plan Discharge Patient Disposition: Home Clinical Impression: Pyelonephritis Condition: Stable Prescriptions: New cefdinir 300 mg capsule 300 mg PO BID Qty: 14 0RF oxycodone 5 mg capsule 5 mg PO Q6H PRN (Reason: pain) Qty: 7 0RF Continued ondansetron 4 mg tablet,disintegrating 4 mg PO Q6H PRN (Reason: nausea and vomiting) Qty: 14 0RF No Action Glucagon (HCl) Emergency Kit 1 mg recon soln 1 mg SUBCUT Q20M PRN (Reason: hypoglycemia) Qty: 3 3RF Rx Instructions: until target blood sugar attained Pepto-Bismol 262 mg Tablet 2 tab PO Q1H PRN (Reason: Heartburn) Rx Instructions: do not exceed 16 tabs per 24 hrs tamsulosin 0.4 mg capsule 0.4 mg PO BEDTIME pantoprazole 40 mg tablet,delayed release (DR/EC) 40 mg PO DAILY@12 albuterol sulfate 90 mcg/actuation HFA aerosol inhaler 2 puff inhalation Q8H PRN (Reason: shortness of breath or wheezing) diphenhydramine HCl [Benadryl Allergy] 25 mg Tablet 25 mg PO BEDTIME insulin aspart U-100 [Novolog Flexpen U-100 Insulin] 100 unit/mL (3 mL) Insulin Pen See Rx Instructions .ROUTE .COMPLEX Rx Instructions: SLIDING SCALE subcutaneously TID furosemide 20 mg Tablet 20 mg PO DAILY@0800 PRN (Reason: Weight gain) Qty: 30 0RF insulin glargine [Lantus Solostar U-100 Insulin] 100 unit/mL (3 mL) insulin pen 15 unit SUBCUT BID Qty: 15 3RF Discharge Orders: Discharge ED (Routine); Ordered 03/25/22 Ordered By: Jak Larose Referrals: Elizabeth Dougherty FNP [Primary Care Provider] - 1-3 days Patient Instructions: Dehydration (ED), Kidney Infection (ED), Opioid Safety, Pain Management Activity Restrictions/Additional Instructions: Return for fever greater than 100 despite 2-3 doses of antibiotics, vomiting liquids or medications, worsening pain despite treatment, any other concerning symptoms. Coding Level of Care Code ED Commander Internal Affairs for Chg Fwd Exam Detailed
[2022-03-25] MEDS: cefTRIAXone 1,000 MG in sodium chloride 0.9% (plus) 50 ML 100 MG IV (03:24)
== END 2022-03-25 04:01 | disposition home or self-care (01) ==
PROVIDERS: Nurse Practitioner Family; Emergency Provider Emergency Medicine; PCP Nurse Practitioner Family
DX: N12 Tubulo-interstitial nephritis, not specified as acute or chronic (principal); Z79.4 Long term (current) use of insulin; F17.210 Nicotine dependence, cigarettes, uncomplicated; I25.10 Atherosclerotic heart disease of native coronary artery without angina pectoris; I11.0 Hypertensive heart disease with heart failure; I50.9 Heart failure, unspecified; E10.9 Type 1 diabetes mellitus without complications; E78.5 Hyperlipidemia, unspecified; Z87.440 Personal history of urinary (tract) infections
CPT/HCPCS: 74176; 80053; 81001; 82009; 83690; 83735; 84100; 85025; 87077; 87086; 87186; 96365; 96375; 96376; 99285; J0696; J2270; J2405; J7030

== ENCOUNTER 2022-04-03 14:45 | Emergency (ER) | payer BC, MEDICAID, SELFPAY ==
[2022-04-03 14:46] VITALS: BP 90/58; PULSE 68; RESP 17; TEMP 36.6; O2SAT 99; BMI 28.3
--- NOTE | 2022-04-03 14:53 | ECG_ITS ---
[facility] Test Date: 2022-04-03 Pat Name: Donita Aguilar Department: Room: Gender: Female [employer] Attendant: : [id number] Requested By: Jacklyn Laurent Order Number: [id number] Faviola MD: Riccardo Burch M.D. Measurements Intervals [place] Rate: 64 P: 15 [place]: 158 QRS: 54 QRSD: 96 T: 76 QT: 458 QTc: 475 Interpretive Statements SINUS RHYTHM NONSPECIFIC T-WAVE ABNORMALITY Compared to ECG 02/27/2022 01:42:08 T-wave abnormality now present Electronically Signed On 04-04-2022 8:25:06 CDT by Riccardo Burch M.D. [id number]
--- NOTE | 2022-04-03 14:54 | ED_ITS ---
HPI - General Adult General: Chief complaint: General Medical Stated complaint: AMS/ CONFUSED/ LOW BG Time Seen by Provider: 04/03/22 14:52 History of Present Illness: Patient is a 36-year-old female with a history of CKD, CAD, celiac disease, type 1 diabetes chronically on insulin regimen presenting to the emergency room for concerns of hypoglycemia and altered mental status. This morning, patient took her novolog insulin without food because of a doctor's appointment. Around 10 AM, patient began feeling lightheaded and nauseous. Shortly after, patient thinks that she may be developing hypoglycemia starting food. However patient passed out shortly after. Family found patient to have a glucose of 40 and called EMS around 10 AM. By time EMS arrival, patient had a glucose of 35. In route, patient received glucose and patient's glucose improved significantly to 180. On arrival, patient glucose of 133 in the ED. Patient appears to be somnolent but answering questions appropriately. Patient denies fall or injury. Patient does not member what happened. Family tells me that they witnessed the whole episode and patient did not suffer any other injury while she was unconscious. She has no other focal complaints at this time. Onset:earlier today 10am Duration:ongoing until EMS administered glucose Location:home Severity:severe Associated symptoms: Reports nausea and vomiting; Deny chest pain, dyspnea, rash or palpitations Review of Systems Const: Reports: other (+generalized weakness); Denies: fever(s) or chills Eyes: Denies: change in vision ENMT: Denies: mouth pain Card: Denies: chest pain or palpitations Resp: Denies: dyspnea or non-productive cough GI: Reports: nausea and vomiting; Denies: abdominal pain or diarrhea : Denies: dysuria Musc: Reports: other (+AMS); Denies: extremity pain Skin/Breast: Denies: rash or new lesions Neuro: Reports: other (+ligtht-headedness, transient amnesia); Denies: weakness in extremities Psych: Reports: other (+ongoing confusion) Ramiro/Lymph: Denies: easy bruising PFSH ED PFSH: Medical History Acute hyperglycemia Acute kidney injury superimposed on chronic kidney disease Anemia Anxiety Arnold-Chiari malformation CAD (coronary artery disease) Celiac disease CHF (congestive heart failure), NYHA class III Chronic headache Community acquired pneumonia Complicated UTI (urinary tract infection) COVID-19 Cystitis Diabetic gastroparesis -continue Reglan Diabetic neuropathy associated with type 1 diabetes mellitus DKA (diabetic ketoacidoses) Drug abuse Esophagitis Headache, common migraine, intractable, with status migrainosus History of pancreatitis HTN (hypertension) Hyperlipidemia Long-term insulin use Lymphadenitis Metabolic acidosis Migraine headache Neurogenic bladder Non-alcoholic fatty liver disease Pancreatitis PID (pelvic inflammatory disease) Pleural effusion 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 Pulmonary hypertension Pyelonephritis Recurrent UTI Respiratory failure Sepsis Tobacco dependence Transaminitis Uncontrolled type 1 diabetes mellitus Ureterolithiasis Surgical History History of cholecystectomy History of endoscopy History of lung surgery -s/p LLL lobectomy secondary to cavitary pneumonia (2017) Family History Grandfather Diabetes Other Heart disease Hypertension Social History Smoking and tobacco status: current every day smoker cigarettes Packs smoked per day: 0.5 Second hand smoke exposure: Yes Alcohol intake: never Household members: children Housing: House Marital status: Single Current occupational status: unemployed Female Reproductive History: Date of last menstrual period: 07/24/21 Physical Exam Const: COMMON NORMALS: alert HENMT: COMMON NORMALS: atraumatic HEAD & SCALP: atraumatic MOUTH: moist mucous membranes abnormal Eye: COMMON NORMALS: EOMs intact bilaterally and conjunctivae normal CONJUNCTIVA: Yes conjunctivae normal Neck/C-Spine: COMMON NORMALS: full ROM and supple Resp: COMMON NORMALS: normal respiratory effort and clear to auscultation bilaterally AUSCULTATION: clear to auscultation bilaterally Cardio: COMMON NORMALS: regular rate RATE: regular rate GI: COMMON NORMALS: Soft to palpation and non-tender PALPATION: Yes Soft to palpation Back/Pelvis: OTHER: midline upper lumbar bony tenderness to palpation Extremity: COMMON NORMALS: full ROM Neuro: SENSORIUM/ORIENTATION: Yes alert MOTOR EXAM: No Abnormal motor stren gth present and Other motor observations present (no focal motor deficits) OTHER: AAOx3, answering all questions, cranial nerves II through XII grossly intact, sensation and strength intact in all extremity, patient appears to be mildly confused and cannot recall what happened earlier Psych: COMMON NORMALS: speech normal SPEECH: Yes normal speech MOOD & AFFECT: Yes euthymic mood Course Vital Signs: Vital signs: Vital Signs Temperature 97.9 F 04/03/22 20:51 Pulse Rate 69 04/03/22 20:51 Respiratory Rate 18 04/03/22 20:51 Blood Pressure 152/83 04/03/22 20:51 Pulse Oximetry 99 04/03/22 20:51 Oxygen Delivery Me thod 04/03/22 20:21 MDM - General Adult Medical Decision Making Patient is a 36-year-old female with a history of CKD, CAD, celiac disease, type 1 diabetes chronically on insulin regimen presenting to the emergency room for concerns of hypoglycemia and altered mental status. On arrival, patient is mildly somnolent but answering all questions. GCS 14. Rest of lab work-up showed creatinine 1.9 similar to baseline. Patient chronically has troponin elevation. Patient complains of back pain. Patient was recently treated with for UTI last week and completed course of antibiotics. UA showed 2+ blood with 4+ bacteria. Discussed with patient and recommend antibiotics. However patient tells me that she recently just completed a course of antibiotics and would like to follow-up with her primary care doctor for reassessment. Patient complains of back pain. CT of the lumbar spine negative for any acute findings. She has been serially observed in the emergency room with glucose level within normal limit. At the present time, I suspect that today symptoms likely due to hypoglycemia and episode. However because patient has had persistently normal glucose in the been observed for a while, patient stable for discharge. Disposition: Discharge. Patient counseled regarding diagnostic impression, treatment plan. Patient given ED strict return precautions to return for continuation, worsening, or development of new symptoms. Instructed to f/u w/ PCP regarding symptoms today. Patient verbalized understanding. Lab Data : 04/03/22 15:12 04/03/22 15:[address] 04/03/22 14:53 IMPRESSION: 1. No CT evidence of acute intracranial pathology. 2. Additional findings, as above. Lumbar Spine CT 04/03/22 17:[address]: 1[address] No [address] evidence of acute lumbar spine traumatic injury. 2. Additional findings, as above. Laboratory Results WBC 7.0 10^3/uL (4.0-10.0) 04/03/22 15:12 RBC 4.10 10^6/uL (4.1-5.3) 04/03/22 15:12 Hgb 11.0 g/dL (11.5-15.3) L 04/03/22 15:12 Hct 34.9 % (37.0-47.0) L 04/03/22 15:12 MCV 85.1 fl (81-99) 04/03/22 15:12 MCH 26.8 pg (28.0-34.0) L 04/03/22 15:12 MCHC 31.5 g/dL (30.0-36.0) 04/03/22 15:12 RDW 14.6 % (12.1-15.1) 04/03/22 15:12 Plt Count 195 10^3/cmm (130-400) 04/03/22 15:12 MPV 10.3 fL (7.4-10.4) 04/03/22 15:12 Neut % (Auto) 64.8 % 04/03/22 15:12 Lymph % (Auto) 23.5 % 04/03/22 15:12 [place] % (Auto) 7.3 % 04/03/22 15:12 Eos % (Auto) 3.1 % 04/03/22 15:12 Baso % (Auto) 0.9 % 04/03/22 15:12 Neut # (Auto) 4.56 10^3/uL (1.8-7.7) 04/03/22 15:12 Lymph # (Auto) 1.7 10^3/uL (0.8-4.8) 04/03/22 15:12 [place] # (Auto) 0.5 10^3/uL (0.2-0.9) 04/03/22 15:12 Eos # (Auto) 0.2 10^3/uL (0.0-0.8) 04/03/22 15:12 Baso # (Auto) 0.1 10^3/uL (0.0-0.1) 04/03/22 15:12 Nucleated RBC % (auto) 0 % 04/03/22 15:12 Nucleated RBCs # 0.0 /100WBC 04/03/22 15:12 Sodium 141 mmol/L (136-145) 04/03/22 15:12 Potassium 4.9 mmol/L (3.5-5.1) 04/03/22 15:12 Chloride 111 mmol/L (98-107) H 04/03/22 15:12 Carbon Dioxide 22 mmol/L (22-29) 04/03/22 15:12 Anion Gap 12.9 (5-19) 04/03/22 15:12 BUN 41 mg/dL (6-20) H 04/03/22 15:12 Creatinine 1.9 mg/dL (0.5-0.9) H 04/03/22 15:12 GFR Calculation 30.1 mL/min (90-130) L 04/03/22 15:12 Glucose 108 mg/dL (65-115) 04/03/22 15:12 POC Glucose 175 mg/dL (70-110) H 04/03/22 20:19 Calculated Osmolality 303 mOsm/kg (285-295) H 04/03/22 15:12 Calcium 8.9 mg/dL (8.5-10.5) 04/03/22 15:12 Total Bilirubin 0.2 mg/dL (0.15-1.2) 04/03/22 15:12 AST 26 U/L (0-32) 04/03/22 15:12 ALT 40 U/L (0-33) H 04/03/22 15:12 Alkaline Phosphatase 98 U/L (35-105) 04/03/22 15:12 Troponin T Baseline 72 ng/L (0-10) H 04/03/22 15:12 Troponin T 120 Minute 61.35 ng/L (0-10) H 04/03/22 17:12 Delta Troponin T -10.65 ABS# (0-10) L 04/03/22 17:12 Total Protein 7.1 g/dL (6.6-8.7) 04/03/22 15:12 Albumin 3.3 g/dL (3.5-5.2) L 04/03/22 15:12 Globulin 3.8 g/dL (1.3-4.6) 04/03/22 15:12 Lipase 37 U/L (13-60) 04/03/22 15:12 TSH 4.02 uIU/mL (0.27-4.20) 04/03/22 15:12 Free T4 1.09 ng/dL (0.82-1.77) 04/03/22 15:12 HCG, Qual Negative (Negative) 04/03/22 15:12 Urine Color Yellow (Yellow) 04/03/22 16:40 Urine Appearance Clear (CLEAR) 04/03/22 16:40 Urine pH 5 (5-7) 04/03/22 16:40 Ur Specific [place] 1.015 (1.005-1.030) 04/03/22 16:40 Urine Protein 3+ (Negative) H 04/03/22 16:40 Urine Glucose (UA) Norm (Normal) 04/03/22 16:40 Urine Ketones Negative (Negative) 04/03/22 16:40 Urine Blood 2+ (Negative) H 04/03/22 16:40 Urine Nitrate Negative (Negative) 04/03/22 16:40 Urine Bilirubin Neg (Negative) 04/03/22 16:40 Urine Urobilinogen Norm mg/dL (Negative) 04/03/22 16:40 Ur Leukocyte Esterase 1+ (Negative) H 04/03/22 16:40 Urine RBC 0-4 /hpf (0-2) H 04/03/22 16:40 Urine WBC 5-10 /hpf (0-5) H 04/03/22 16:40 Ur Squamous Epith Cells 0-4 /hpf (0-5) H 04/03/22 16:40 Amorphous Sediment Not Reportable 04/03/22 16:40 Urine Bacteria 4+ /hpf (NONE) H 04/03/22 16:40 Salicylates < 0.3 mg/dL (3-10) L 04/03/22 15:12 Acetaminophen < 5.0 ug/mL (10-30) L 04/03/22 15:12 Imaging Data Other Imaging: Radiologist's impression: [address] [place] [address] CT Scan Report Signed Patient: Donita Aguialr Unit #: [id number] : 1985 Age/Sex: 36 / F ADM Date: 04/03/22 Loc: ER Room/Bed: Attending Dr: Ordering Provider/Ordering MD: Jacklyn Laurent MD Date of Service: 04/03/22 Procedure(s): CT lumbar spine wo con* [id number] Accession Number(s): [id number] Report Number: [id number] PROCEDURE INFORMATION: Exam: CT Lumbar Spine Without Contrast Exam date and time: 04/03/2022 5:57 PM Age: 36 years old Clinical indication: Injury or trauma; Fall; Blunt trauma (contusions or hematomas); Injury details: Fell 1 week ago-- central and low back pain TECHNIQUE: Imaging protocol: Computed tomography of the lumbar spine without contrast. Axial, coronal and sagittal reformatted images were created and reviewed. Radiation optimization: All CT scans at this facility use at least one of these dose optimization techniques: automated exposure control; mA and/or kV adjustment per patient size (includes targeted exams where dose is matched to clinical indication); or iterative reconstruction. COMPARISON: CT abdomen pelvis wo con [id number] 03/24/2022 11:34 PM RADIATION DOSE METRICS: Total DLP (mGy-cm): 588 FINDINGS: Bones/joints:? Osteopenia.? Normal lumbar lordosis. No CT evidence of acute fracture, dislocation or subluxation.? Minimal retrolisthesis of L3 on L4 and L4 on L5. Bilateral L5 pars defects with grade 1 anterolisthesis of L5 on S1.? Alignment otherwise anatomic. Vertebral body heights maintained.? Limbus L4 vertebra. Soft tissues: Grossly unremarkable. CT/CT lumbar spine wo con* [id number] IMPRESSION: 1. No CT evidence of acute lumbar spine traumatic injury. 2. Additional findings, as above. ? Dictated By: Amilcar Montalvo MD Signed By: Amilcar Montavlo MD Signed Date/Time: 04/03/22 1829 DD/ [address] [address] [address] Scan Report Signed Patient: Donita Aguilar Unit #: [id number] : 1985 Age/Sex: 36 / F ADM Date: 04/03/22 Loc: ER Room/Bed: Attending Dr: Ordering Provider/Ordering MD: Jacklyn Laurent MD Date of Service: 04/03/22 Procedure(s): CT head wo con* [id number] Accession Number(s): [id number] Report Number: [id number] PROCEDURE INFORMATION: Exam: CT Head Without Contrast Exam date and time: 04/03/2022 4:53 PM Age: 36 years old Clinical indication: Other: AMS due to low blood sugar; Additional info: AMS, due to low blood sugar TECHNIQUE: Imaging protocol: Computed tomography of the head without contrast. Axial, coronal and sagittal reformatted images were created and reviewed. Radiation optimization: All CT scans at this facility use at least one of these dose optimization techniques: automated exposure control; mA and/or kV adjustment per patient size (includes targeted exams where dose is matched to clinical indication); or iterative reconstruction. COMPARISON: CT head wo con* [id number] 01/22/2022 9:18 AM RADIATION DOSE METRICS: Total DLP (mGy-cm): 1109.48 FINDINGS: Brain: No CT evidence of acute intracranial hemorrhage or acute territorial infarction. No significant mass effect or midline shift. Basal cisterns patent. Cerebral ventricles: Prominence of the cortical sulci, cisterns and ventricular system, consistent with cerebral and cerebellar volume loss. Paranasal sinuses: Unremarkable. No fluid levels. Mastoid air cells: Grossly unremarkable. Bones/joints: No acute osseous abnormality. Soft tissues: Grossly unremarkable. CT/CT head wo con* [id number] IMPRESSION: 1. No CT evidence of acute intracranial pathology. 2. Additional findings, as above. ? Dictated By: Amilcar Montalvo MD Signed By: Amilcar Montalvo MD Signed Date/Time: 04/03/221800 DD/ 52 Discharge Plan Discharge Patient Disposition: Home Clinical Impression: Hypoglycemia Condition: Stable Prescriptions: No Action Glucagon (HCl) Emergency Kit 1 mg recon soln 1 mg SUBCUT Q20M PRN (Reason: hypoglycemia) Qty: 3 3RF Rx Instructions: until target blood sugar attained Pepto-Bismol 262 mg Tablet 2 tab PO Q1H PRN (Reason: Heartburn) Rx Instructions: do not exceed 16 tabs per 24 hrs tamsulosin 0.4 mg capsule 0.4 mg PO BEDTIME pantoprazole 40 mg tablet,delayed release (DR/EC) 40 mg PO DAILY@12 albuterol sulfate 90 mcg/actuation HFA aerosol inhaler 2 puff inhalation Q8H PRN (Reason: shortness of breath or wheezing) ondansetron 4 mg tablet,disintegrating 4 mg PO Q6H PRN (Reason: nausea and vomiting) Qty: 14 0RF oxycodone 5 mg capsule 5 mg PO Q6H PRN (Reason: pain) Qty: 7 0RF diphenhydramine HCl [Benadryl Allergy] 25 mg Tablet 25 mg PO BEDTIME insulin aspart U-100 [Novolog Flexpen U-100 Insulin] 100 unit/mL (3 mL) Insulin Pen See Rx Instructions .ROUTE .COMPLEX Rx Instructions: SLIDING SCALE subcutaneously TID furosemide 20 mg Tablet 20 mg PO DAILY@0800 PRN (Reason: Weight gain) Qty: 30 0RF insulin glargine [Lantus Solostar U-100 Insulin] 100 unit/mL (3 mL) insulin pen 15 unit SUBCUT BID Qty: 15 3RF Discharge Orders: Discharge ED (Routine); Ordered 04/03/22 Ordered By: Jacklyn Laurent Referrals: Elizabeth Dougherty FNP [Primary Care Provider] - Discharge Diet: Advance as tolerated Discharge Activity: Increase activity as tolerated Patient Instructions: Hypoglycemia Activity Restrictions/Additional Instructions: Come back if you have any new or concerning issues. Coding Level of Care Code ED Fittings Tightener for Chg Fwd Exam Comprehensive
[2022-04-03 15:01] LABS: Glucose Point of Care 133 mg/dL (70-110)
[2022-04-03] MEDS: sodium chloride 0.9% 1,000 ML 999 ML IV ×2 (15:21→17:48)
[2022-04-03 15:25] LABS: Basophils # 0.1 10^3/uL (0.0-0.1); Basophils % 0.9 %; Eosinophils # 0.2 10^3/uL (0.0-0.8); Eosinophils % 3.1 %; Hematocrit 34.9 % (37.0-47.0); Lymphocytes # 1.7 10^3/uL (0.8-4.8); Lymphocytes % 23.5 %; Mean Corpuscular HGB Conc 31.5 g/dL (30.0-36.0); Mean Corpuscular Hemoglobin 26.8 pg (28.0-34.0); Mean Corpuscular Volume 85.1 fl (81-99); Mean Platelet Volume 10.3 fL (7.4-10.4); Monocytes # 0.5 10^3/uL (0.2-0.9); Monocytes % 7.3 %; Neutrophils # 4.56 10^3/uL (1.8-7.7); Neutrophils % 64.8 %; Nucleated Red Blood Cells % 0 %; Platelet Count 195 10^3/cmm (130-400); Red Cell Distribution Width 14.6 % (12.1-15.1)
[2022-04-03 15:29] LABS: Glucose Point of Care 150 mg/dL (70-110)
[2022-04-03 15:37] LABS: HCG, Serum Qual Negative (Negative)
[2022-04-03 15:49] LABS: Troponin(5th) Baseline 72 ng/L (0-10)
[2022-04-03 15:59] LABS: Acetaminophen < 5.0 ug/mL (10-30); Alanine Aminotransferase 40 U/L (0-33); Albumin Level 3.3 g/dL (3.5-5.2); Alkaline Phosphatase 98 U/L (35-105); Anion Gap 12.9 (5-19); Aspartate Amino Transferase 26 U/L (0-32); Blood Urea Nitrogen 41 mg/dL (6-20); Calcium 8.9 mg/dL (8.5-10.5); Carbon Dioxide 22 mmol/L (22-29); Chloride 111 mmol/L (98-107); Free T4 Free Thyroxine 1.09 ng/dL (0.82-1.77); Globulin 3.8 g/dL (1.3-4.6); Glomerular Filtration Rate 30.1 mL/min (90-130); Glucose 108 mg/dL (65-115); Lipase 37 U/L (13-60); Osmolality Calculated 303 mOsm/kg (285-295); Potassium 4.9 mmol/L (3.5-5.1); Salicylate < 0.3 mg/dL (3-10); Sodium 141 mmol/L (136-145); Thyroid Stimulating Hormone 4.02 uIU/mL (0.27-4.20); Total Bilirubin 0.2 mg/dL (0.15-1.2); Total Protein 7.1 g/dL (6.6-8.7)
[2022-04-03 16:26] VITALS: BP 124/82; PULSE 66; RESP 16; O2SAT 100
[2022-04-03 17:38] LABS: Troponin 5 2HR 61.35 ng/L (0-10)
--- NOTE | 2022-04-03 17:41 | CTR_ITS ---
PROCEDURE INFORMATION: Exam: CT Lumbar Spine Without Contrast Exam date and time: 04/03/2022 5:57 PM Age: 36 years old Clinical indication: Injury or trauma; Fall; Blunt trauma (contusions or hematomas); Injury details: Fell 1 week ago-- central and low back pain TECHNIQUE: Imaging protocol: Computed tomography of the lumbar spine without contrast. Axial, coronal and sagittal reformatted images were created and reviewed. Radiation optimization: All CT scans at this facility use at least one of these dose optimization techniques: automated exposure control; mA and/or kV adjustment per patient size (includes targeted exams where dose is matched to clinical indication); or iterative reconstruction. COMPARISON: CT abdomen pelvis wo con [id number] 03/24/2022 11:34 PM RADIATION DOSE METRICS: Total DLP (mGy-cm): 588 FINDINGS: Bones/joints: Osteopenia. Normal lumbar lordosis. No CT evidence of acute fracture, dislocation or subluxation. Minimal retrolisthesis of L3 on L4 and L4 on L5. Bilateral L5 pars defects with grade 1 anterolisthesis of L5 on S1. Alignment otherwise anatomic. Vertebral body heights maintained. Limbus L4 vertebra. Soft tissues: Grossly unremarkable. CT/CT lumbar spine wo con* [id number] IMPRESSION: 1. No CT evidence of acute lumbar spine traumatic injury. 2. Additional findings, as above.
[2022-04-03 17:50] VITALS: BP 145/84; PULSE 69; RESP 16; O2SAT 100
[2022-04-03 17:57] LABS: Add Urine Culture? Yes; Add Urine Microscopic? YES; Bacteria Urine 4+ /hpf; Bilirubin Urine Neg (Negative); Blood Urine 2+ (Negative); Glucose Urine UA Norm (Normal); Ketones Urine Negative (Negative); Leukocyte Esterase Urine 1+ (Negative); Nitrate Urine Negative (Negative); Protein Urine 3+ (Negative); RBC Urine 0-4 /hpf (0-2); Specific Gravity, Urine 1.015 (1.005-1.030); Squamous Epithelial Cell Urine 0-4 /hpf (0-5); Urine Appearance Clear (CLEAR); Urine Color Yellow (Yellow); Urobilinogen Urine Norm (Negative); pH Urine 5 (5-7)
[2022-04-03 20:20] VITALS: RESP 18; O2SAT 100
[2022-04-03] MEDS: morphine 4 mg/mL SDV 1 mL IVP (20:20)
[2022-04-03 20:21] VITALS: BP 156/91; PULSE 71; RESP 18; O2SAT 100
[2022-04-03 20:28] LABS: Glucose Point of Care 175 mg/dL (70-110)
[2022-04-03 20:51] VITALS: BP 152/83; PULSE 69; RESP 18; TEMP 36.6; O2SAT 99
== END 2022-04-03 20:55 | disposition home or self-care (01) ==
PROVIDERS: Emergency Provider Emergency Medicine; PCP Nurse Practitioner Family
DX: E10.649 Type 1 diabetes mellitus with hypoglycemia without coma (principal); Z79.4 Long term (current) use of insulin; F17.210 Nicotine dependence, cigarettes, uncomplicated; I25.10 Atherosclerotic heart disease of native coronary artery without angina pectoris; E10.22 Type 1 diabetes mellitus with diabetic chronic kidney disease; I13.0 Hypertensive heart and chronic kidney disease with heart failure and stage 1 through stage 4 chronic kidney disease, or unspecified chronic kidney disease; N18.9 Chronic kidney disease, unspecified; I50.9 Heart failure, unspecified; E78.5 Hyperlipidemia, unspecified
CPT/HCPCS: 36415; 36416; 70450; 72131; 80053; 80307; 81001; 82962; 83690; 84439; 84443; 84484; 84703; 85025; 87086; 87186; 93005; 96361; 96374; 99285; J2270; J7030

== ENCOUNTER 2022-04-05 17:08 | Emergency (ER) | payer BC, MEDICAID, SELFPAY ==
[2022-04-05] VITALS (7 sets, daily range): BP systolic 114–161; BP diastolic 63–106; PULSE 67–82; RESP 15–21; TEMP 36.4–36.8; O2SAT 100; BMI 25.4
[2022-04-05 18:16] LABS: Bilirubin Urine Neg (Negative); Blood Urine 3+ (Negative); Glucose Urine UA Norm (Normal); Ketones Urine Negative (Negative); Leukocyte Esterase Urine Trace (Negative); Nitrate Urine Positive (Negative); Protein Urine 3+ (Negative); Specific Gravity, Urine 1.015 (1.005-1.030); Urine Appearance Clear (CLEAR); Urine Color Straw (Yellow); Urobilinogen Urine Neg (Negative); pH Urine 5 (5-7)
[2022-04-05 18:17] LABS: Add Urine Microscopic? YES
[2022-04-05 18:44] LABS: Add Urine Culture? Yes; Bacteria Urine 3+ /hpf
--- NOTE | 2022-04-05 19:52 | W.ED.GENADLT ---
HPI - General Adult General: Chief complaint: General Medical Stated complaint: cant urinate Time Seen by Provider: 04/05/22 19:48 History of Present Illness: Patient is a 36-year-old female with a history of recent pyelonephritis/UTI presenting to the emergency room for concerns of bilateral flank, pain/nausea and dysuria symptoms for the last 3 days. Patient tells me that she took antibiotics on 03/25/2021 completed a course and reports feeling that symptomatically improved. Since 3 days ago, patient has had dysuria with bilateral flank pain. Patient denies any vomiting, fever or chills. Patient thinks she may have another urinary tract infection. Patient has no prior abdominal surgeries. Denies any new vaginal discharge or vaginal bleeding. Denies any new hx of renal colic Onset:3 days ago Duration:3 days Location:home Severity:moderate Associated symptoms: Reports nausea; Deny chest pain, dyspnea, rash, palpitations or vomiting Review of Systems Const: Denies: fever(s) or chills Eyes: Denies: change in vision ENMT: Denies: mouth pain Card: Denies: chest pain or palpitations Resp: Denies: dyspnea or non-productive cough GI: Reports: nausea; Denies: abdominal pain, vomiting or diarrhea : Reports: flank pain and other (+dysuria); Denies: dysuria Musc: Denies: extremity pain Skin/Breast: Denies: rash or new lesions Neuro: Denies: weakness in extremities Psych: Reports: other (Normal mood) Ramiro/Lymph: Denies: easy bruising PFS ED PFSH: Medical History Acute hyperglycemia Acute kidney injury superimposed on chronic kidney disease Anemia Anxiety Arnold-Chiari malformation CAD (coronary artery disease) Celiac disease CHF (congestive heart failure), NYHA class III Chronic headache Community acquired pneumonia Complicated UTI (urinary tract infection) COVID-19 Cystitis Diabetic gastroparesis -continue Reglan Diabetic neuropathy associated with type 1 diabetes mellitus DKA (diabetic ketoacidoses) Drug abuse Esophagitis Headache, common migraine, intractable, with status migrainosus History of pancreatitis HTN (hypertension) Hyperlipidemia Long-term insulin use Lymphadenitis Metabolic acidosis Migraine headache Neurogenic bladder Non-alcoholic fatty liver disease Pancreatitis PID (pelvic inflammatory disease) Pleural effusion 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 Pulmonary hypertension Pyelonephritis Recurrent UTI Respiratory failure Sepsis Tobacco dependence Transaminitis Uncontrolled type 1 diabetes mellitus Ureterolithiasis Surgical History History of cholecystectomy History of endoscopy History of lung surgery -s/p LLL lobectomy secondary to cavitary pneumonia (2017) Family History Grandfather Diabetes Other Heart disease Hypertension Social History Smoking and tobacco status: current every day smoker cigarettes Packs smoked per day: 0.5 Second hand smoke exposure: Yes Alcohol intake: never Household members: children Housing: House Marital status: Single Current occupational status: unemployed Female Reproductive History: Date of last menstrual period: 07/24/21 Physical Exam Const: COMMON NORMALS: alert HENMT: COMMON NORMALS: atraumatic HEAD & SCALP: atraumatic MOUTH: moist mucous membranes not abnormal Eye: COMMON NORMALS: EOMs intact bilaterally and conjunctivae normal CONJUNCTIVA: Yes conjunctivae normal Neck/C-Spine: COMMON NORMALS: full ROM and supple Resp: COMMON NORMALS: normal respiratory effort and clear to auscultation bilaterally AUSCULTATION: clear to auscultation bilaterally Cardio: COMMON NORMALS: regular rate RATE: regular rate GI: COMMON NORMALS: Soft to palpation and non-tender PALPATION: Yes Soft to palpation OTHER: No focal TTP. NO guarding rebound, guarding, rigidity. +B/l CVA tenderness to percussion. Neg Howell/Neg McBurney's point tenderness, no suprabupic tenderness to palpation. Extremity: COMMON NORMALS: full ROM Neuro: SENSORIUM/ORIENTATION: Yes alert MOTOR EXAM: No Abnormal motor strength present and Other motor observations present (no focal motor deficits) Psych: COMMON NORMALS: speech normal SPEECH: Yes normal speech MOOD & AFFECT: Yes euthymic mood Course Vital Signs: Vital signs: Vital Signs Temperature 97.6 F 04/05/22 17:13 Pulse Rate 73 04/05/22 21:38 Respiratory Rate 15 04/05/22 21:38 Blood Pressure 135/63 04/05/22 21:38 Pulse Oximetry 100 04/05/22 21:38 Oxygen Delivery Me thod 04/05/22 21:38 MDM - General Adult Medical Decision Making Patient is a 36-year-old female with a history of recent pyelonephritis/UTI presenting to the emergency room for concerns of bilateral flank, pain/nausea and dysuria symptoms for the last 3 days. On exam, patient is hemodynamically stable with bilateral CVA tenderness. No focal abdominal tenderness. Potassium 5.3 today. Creatinine 1.6 similar to baseline. Patient received ceftriaxone in the ER. Patient is able to tolerate p.o. No acute distress. Patient received morphine with reports of improvement in pain. Rx cefdinir for UTI/early pyelonephritis Disposition: Discharge. Patient counseled regarding diagnostic impression, treatment plan. Patient given ED strict return precautions to return for continuation, worsening, or development of new symptoms. Instructed to f/u w/ PCP regarding symptoms today. Patient verbalized understanding. Lab Data : 04/05/22 20:15 04/05/22 20:15 Laboratory Results WBC 7.1 10^3/uL (4.0-10.0) 04/05/22 20:15 RBC 4.24 10^6/uL (4.1-5.3) 04/05/22 20:15 Hgb 11.3 g/dL (11.5-15.3) L 04/05/22 20:15 Hct 35.0 % (37.0-47.0) L 04/05/22 20:15 MCV 82.5 fl (81-99) 04/05/22 20:15 MCH 26.7 pg (28.0-34.0) L 04/05/22 20:15 MCHC 32.3 g/dL (30.0-36.0) 04/05/22 20:15 RDW 14.6 % (12.1-15.1) 04/05/22 20:15 Plt Count 210 10^3/cmm (130-400) 04/05/22 20:15 MPV 11.0 fL (7.4-10.4) H 04/05/22 20:15 Neut % (Auto) 54.2 % 04/05/22 20:15 Lymph % (Auto) 32.9 % 04/05/22 20:15 [place] % (Auto) 7.7 % 04/05/22 20:15 Eos % (Auto) 4.2 % 04/05/22 20:15 Baso % (Auto) 0.7 % 04/05/22 20:15 Neut # (Auto) 3.86 10^3/uL (1.8-7.7) 04/05/22 20:15 Lymph # (Auto) 2.3 10^3/uL (0.8-4.8) 04/05/22 20:15 [place] # (Auto) 0.6 10^3/uL (0.2-0.9) 04/05/22 20:15 Eos # (Auto) 0.3 10^3/uL (0.0-0.8) 04/05/22 20:15 Baso # (Auto) 0.1 10^3/uL (0.0-0.1) 04/05/22 20:15 Nucleated RBC % (auto) 0 % 04/05/22 20:15 Nucleated RBCs # 0.0 /100WBC 04/05/22 20:15 Sodium 137 mmol/L (136-145) 04/05/22 20:15 Potassium 5.3 mmol/L (3.5-5.1) H 04/05/22 20:15 Chloride 108 mmol/L (98-107) H 04/05/22 20:15 Carbon Dioxide 20 mmol/L (22-29) L 04/05/22 20:15 Anion Gap 14.3 (5-19) 04/05/22 20:15 BUN 42 mg/dL (6-20) H 04/05/22 20:15 Creatinine 1.6 mg/dL (0.5-0.9) H 04/05/22 20:15 GFR Calculation 36.7 mL/min (90-130) L 04/05/22 20:15 Glucose 157 mg/dL (65-115) H 04/05/22 20:15 Calculated Osmolality 298 mOsm/kg (285-295) H 04/05/22 20:15 Calcium 8.9 mg/dL (8.5-10.5) 04/05/22 20:15 Total Bilirubin 0.2 mg/dL (0.15-1.2) 04/05/22 20:15 AST 43 U/L (0-32) H 04/05/22 20:15 ALT 58 U/L (0-33) H 04/05/22 20:15 Alkaline Phosphatase 102 U/L (35-105) 04/05/22 20:15 Total Protein 7.2 g/dL (6.6-8.7) 04/05/22 20:15 Albumin 3.4 g/dL (3.5-5.2) L 04/05/22 20:15 Globulin 3.8 g/dL (1.3-4.6) 04/05/22 20:15 Lipase 28 U/L (13-60) 04/05/22 20:15 HCG, Qual Cancelled 04/05/22 20:15 Urine Color Straw (Yellow) 04/05/22 17:15 Urine Appearance Clear (CLEAR) 04/05/22 17:15 Urine pH 5 (5-7) 04/05/22 17:15 Ur Specific [place] 1.015 (1.005-1.030) 04/05/22 17:15 Urine Protein 3+ (Negative) H 04/05/22 17:15 Urine Glucose (UA) Norm (Normal) 04/05/22 17:15 Urine Ketones Negative (Negative) 04/05/22 17:15 Urine Blood 3+ (Negative) H 04/05/22 17:15 Urine Nitrate Positive (Negative) H 04/05/22 17:15 Urine Bilirubin Neg (Negative) 04/05/22 17:15 Urine Urobilinogen Neg mg/dL (Negative) 04/05/22 17:15 Ur Leukocyte Esterase Trace (Negative) H 04/05/22 17:15 Urine RBC 5-10 /hpf (0-2) H 04/05/22 17:15 Urine WBC 5-10 /hpf (0-5) H 04/05/22 17:15 Ur Squamous Epith Cells 5-10 /hpf (0-5) H 04/05/22 17:15 Amorphous Sediment Not Reportable 04/05/22 17:15 Urine Bacteria 3+ /hpf (NONE) H 04/05/22 17:15 Discharge Plan Discharge Patient Disposition: Home Clinical Impression: Pyelonephritis, Acute flank pain Condition: Stable Prescriptions: New cefdinir 300 mg capsule 300 mg PO BID 10 Days Qty: 20 0RF ondansetron 4 mg tablet,disintegrating 4 mg PO TID PRN (Reason: nausea and vomiting) 4 Days Qty: 12 0RF No Action Glucagon (HCl) Emergency Kit 1 mg recon soln 1 mg SUBCUT Q20M PRN (Reason: hypoglycemia) Qty: 3 3RF Rx Instructions: until target blood sugar attained Pepto-Bismol 262 mg Tablet 2 tab PO Q1H PRN (Reason: Heartburn) Rx Instructions: do not exceed 16 tabs per 24 hrs tamsulosin 0.4 mg capsule 0.4 mg PO BEDTIME pantoprazole 40 mg tablet,delayed release (DR/EC) 40 mg PO DAILY@12 albuterol sulfate 90 mcg/actuation HFA aerosol inhaler 2 puff inhalation Q8H PRN (Reason: shortness of breath or wheezing) ondansetron 4 mg tablet,disintegrating 4 mg PO Q6H PRN (Reason: nausea and vomiting) Qty: 14 0RF oxycodone 5 mg capsule 5 mg PO Q6H PRN (Reason: pain) Qty: 7 0RF diphenhydramine HCl [Benadryl Allergy] 25 mg Tablet 25 mg PO BEDTIME insulin aspart U-100 [Novolog Flexpen U-100 Insulin] 100 unit/mL (3 mL) Insulin Pen See Rx Instructions .ROUTE .COMPLEX Rx Instructions: SLIDING SCALE subcutaneously TID furosemide 20 mg Tablet 20 mg PO DAILY@0800 PRN (Reason: Weight gain) Qty: 30 0RF insulin glargine [Lantus Solostar U-100 Insulin] 100 unit/mL (3 mL) insulin pen 15 unit SUBCUT BID Qty: 15 3RF Discharge Orders: Discharge ED (Routine); Ordered 04/05/22 Ordered By: Jacklyn Laurent Referrals: Elizabeth Dougherty FNP [Primary Care Provider] - Discharge Diet: Advance as tolerated Discharge Activity: Increase activity as tolerated Patient Instructions: Flank Pain (ED) Activity Restrictions/Additional Instructions: Please take your antibiotics as instructed. Watch out for signs of skin changes/redness, mouth redeness or swelling, nausea/vomiting, diarrhea, blood in the urine or any new or concering complaints. Please come back if you have any worsening abdominal pain, fever or chills, nausea or vomiting, diarrhea, blood in the stool, inability hold down liquid or solids, or any new concerning complaints. Coding Level of Care Code ED Lead Coater for Reji Fwd Exam Comprehensive
[2022-04-05 20:23] LABS: Basophils # 0.1 10^3/uL (0.0-0.1); Basophils % 0.7 %; Eosinophils # 0.3 10^3/uL (0.0-0.8); Eosinophils % 4.2 %; Hemoglobin 11.3 g/dL (11.5-15.3); Lymphocytes # 2.3 10^3/uL (0.8-4.8); Lymphocytes % 32.9 %; Mean Corpuscular HGB Conc 32.3 g/dL (30.0-36.0); Mean Corpuscular Hemoglobin 26.7 pg (28.0-34.0); Mean Corpuscular Volume 82.5 fl (81-99); Monocytes # 0.6 10^3/uL (0.2-0.9); Monocytes % 7.7 %; Neutrophils # 3.86 10^3/uL (1.8-7.7); Neutrophils % 54.2 %; Nucleated Red Blood Cells % 0 %; Platelet Count 210 10^3/cmm (130-400); Red Blood Count 4.24 10^6/uL (4.1-5.3); Red Cell Distribution Width 14.6 % (12.1-15.1); White Blood Count 7.1 10^3/uL (4.0-10.0)
[2022-04-05] MEDS: sodium chloride 0.9% 1,000 ML 999 ML IV (20:35)
[2022-04-05] MEDS: morphine 4 mg/mL SDV 1 mL IVP (20:37)
[2022-04-05] MEDS: ondansetron 2 mg/ML SDV 2 mL 4 MG IVP (20:38)
[2022-04-05 20:43] LABS: Alanine Aminotransferase 58 U/L (0-33); Albumin Level 3.4 g/dL (3.5-5.2); Alkaline Phosphatase 102 U/L (35-105); Blood Urea Nitrogen 42 mg/dL (6-20); Calcium 8.9 mg/dL (8.5-10.5); Carbon Dioxide 20 mmol/L (22-29); Chloride 108 mmol/L (98-107); Globulin 3.8 g/dL (1.3-4.6); Glomerular Filtration Rate 36.7 mL/min (90-130); Glucose 157 mg/dL (65-115); Lipase 28 U/L (13-60); Osmolality Calculated 298 mOsm/kg (285-295); Sodium 137 mmol/L (136-145); Total Bilirubin 0.2 mg/dL (0.15-1.2); Total Protein 7.2 g/dL (6.6-8.7)
[2022-04-05 20:53] LABS: Anion Gap 14.3 (5-19)
[2022-04-05 20:54] LABS: Aspartate Amino Transferase 43 U/L (0-32); Potassium 5.3 mmol/L (3.5-5.1)
[2022-04-05] MEDS: cefTRIAXone 1,000 MG in sodium chloride 0.9% (plus) 50 ML 100 MG IV (21:36)
[2022-04-05 21:52] LABS: HCG Qualitative Urine. Negative (Negative)
[2022-04-05] MEDS: morphine 4 mg/mL SDV 1 mL 2 MG IVP (22:25)
== END 2022-04-05 22:48 | disposition home or self-care (01) ==
PROVIDERS: Family Medicine; Emergency Provider Emergency Medicine; PCP Nurse Practitioner Family
DX: N12 Tubulo-interstitial nephritis, not specified as acute or chronic (principal); Z79.4 Long term (current) use of insulin; I25.10 Atherosclerotic heart disease of native coronary artery without angina pectoris; I11.0 Hypertensive heart disease with heart failure; I50.9 Heart failure, unspecified; E78.5 Hyperlipidemia, unspecified; Z87.440 Personal history of urinary (tract) infections; E10.9 Type 1 diabetes mellitus without complications; F17.210 Nicotine dependence, cigarettes, uncomplicated
CPT/HCPCS: 51798; 80053; 81001; 81025; 83690; 85025; 87086; 87186; 96365; 96375; 96376; 99284; J0696; J2270; J2405; J7030

== ENCOUNTER 2022-04-08 22:20 | Emergency (ER) | payer BC, MEDICAID, SELFPAY ==
[2022-04-08 22:24] VITALS: BP 140/81; PULSE 76; RESP 18; TEMP 36.6; O2SAT 97; BMI 26.2
--- NOTE | 2022-04-08 22:52 | USR_ITS ---
PROCEDURE INFORMATION: Exam: US Duplex Left Lower Extremity Veins, Limited Exam date and time: 04/08/2022 11:37 PM Age: 36 years old Clinical indication: Pain; Leg, lower; Left; Patient HX: History of staph infection TECHNIQUE: Imaging protocol: Real-time Duplex ultrasound of the Left Lower Extremity with 2-D florentino scale, color Doppler flow and spectral waveform analysis with image documentation. Limited exam focused on the left lower extremity veins. COMPARISON: No relevant prior studies available. FINDINGS: Evaluated veins include the left common femoral, proximal profunda femoral, proximal/mid/distal superficial femoral, popliteal, posterior tibial, peroneal, and proximal greater saphenous veins. No visible clot in the included veins. The included veins appear normally compressible. Duplex Doppler evaluation demonstrates flow in the evaluated veins. There may be some fluid around the patella, possibly representing knee joint effusion. US/CV venous duplex [facility] [id number] IMPRESSION: 1. No evidence of acute left lower extremity DVT. 2. Other findings discussed above.
--- NOTE | 2022-04-08 22:56 | W.ED.ABDPA2 ---
HPI - Abdominal Pain General: Chief Complaint: Abdominal Pain Stated Complaint: abd pain, left leg swelling Time Seen by Provider: 04/08/22 22:29 Source: patient Mode of arrival: ambulatory Limitations: no limitations History of Present Illness: 36-year-old female history of diabetes chronic abdominal pain has been seen here multiple times for abdominal pain she did have a CT scan on the first that was normal states she does continue to have diffuse abdominal pain worsened tonight rates her pain a 7 out of 10 no vomiting some nausea she states she has had some left leg swelling as well. Associated Symptoms: Denies chills, dysuria and fever(s) Related Data: Date of Last Menstrual Period: 07/24/21 Review of Systems Const: Denies: fever(s), chills, body aches or change in appetite Eyes: Denies: blurry vision or eye discomfort ENMT: Denies: throat pain or dental pain Card: Denies: chest pain Resp: Denies: dyspnea GI: Reports: abdominal pain : Denies: dysuria Musc: Reports: extremity swelling Skin/Breast: Denies: rash Neuro: Denies: headache(s) Psych: Denies: depression Ramiro/Lymph: Denies: easy bruising All/Imm: Denies: urticaria PFSH ED PFSH: Medical History Acute hyperglycemia Acute kidney injury superimposed on chronic kidney disease Anemia Anxiety Arnold-Chiari malformation CAD (coronary artery disease) Celiac disease CHF (congestive heart failure), NYHA class III Chronic headache Community acquired pneumonia Complicated UTI (urinary tract infection) COVID-19 Cystitis Diabetic gastroparesis -continue Reglan Diabetic neuropathy associated with type 1 diabetes mellitus DKA (diabetic ketoacidoses) Drug abuse Esophagitis Headache, common migraine, intractable, with status migrainosus History of pancreatitis HTN (hypertension) Hyperlipidemia Long-term insulin use Lymphadenitis Metabolic acidosis Migraine headache Neurogenic bladder Non-alcoholic fatty liver disease Pancreatitis PID (pelvic inflammatory disease) Pleural effusion 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 Pulmonary hypertension Pyelonephritis Recurrent UTI Respiratory failure Sepsis Tobacco dependence Transaminitis Uncontrolled type 1 diabetes mellitus Ureterolithiasis Surgical History History of cholecystectomy History of endoscopy History of lung surgery -s/p LLL lobectomy secondary to cavitary pneumonia (2016) Family History Grandfather Diabetes Other Heart disease Hypertension Social History Smoking and tobacco status: former smoker Second hand smoke exposure: Yes Alcohol intake: never Household members: children Housing: House Marital status: Single Current occupational status: unemployed Female Reproductive History: Date of last menstrual period: 07/24/21 Physical Exam Const: COMMON NORMALS: no acute distress, patient oriented x3 and healthy appearing HENMT: COMMON NORMALS: normocephalic and atraumatic HEAD & SCALP: normocephalic and atraumatic Eye: COMMON NORMALS: Equal, round and reactive pupils present and EOMs intact bilaterally PUPIL: Yes Equal, round and reactive pupils present Neck/C-Spine: COMMON NORMALS: full ROM and supple Chest: COMMONS NORMALS: normal inspection of the chest and normal palpation of entire chest wall Resp: COMMON NORMALS: normal respiratory effort, No retractions, No use of accessory muscles and clear to auscultation bilaterally AUSCULTATION: clear to auscultation bilaterally Cardio: COMMON NORMALS: regular rate, regular rhythm and No murmurs present (Cardio) RATE: regular rate RHYTHM: regular rhythm GI: COMMON NORMALS: Normal to inspection, nondistended, normoactive bowel sounds present, Soft to palpation, non-tender and no masses PALPATION: Yes Soft to palpation Extremity: COMMON NORMALS: full ROM NARRATIVE EXTREMITY EXAM: mild left lower ext swelling Neuro: COMMON NORMALS: patient oriented x3, moves all extremities and no focal motor deficits Psych: COMMON NORMALS: mental status grossly normal, Normal thought process present and cooperative THOUGHT PROCESS: Normal thought process present Skin: COMMON NORMALS: no rashes or lesions noted and no wounds GENERAL SKIN EXAM: no rashes or lesions noted Course Vital Signs: Vital signs: Vital Signs Temperature 97.9 F 04/09/22 01:00 Pulse Rate 100 04/09/22 01:00 Respiratory Rate 16 04/09/22 01:00 Blood Pressure 155/77 04/09/22 01:00 Pulse Oximetry 97 04/09/22 01:00 Oxygen Delivery Me thod 04/09/22 01:00 MDM - Abdominal Pain Medical Decision Making Patient presents abdominal pain was found to have a urinary tract infection CT scan showed no kidney stone or pyelonephritis we will start on antibiotics along with pain meds she is to follow-up with PCP and return if worsening she understands agrees to plan. Lab Data : 04/08/22 23:33 04/08/22 23:33 Labs/Radiology: Radiology Impressions Venous Duplex 04/08/22 22:52 IMPRESSION: 1. No evidence of acute left lower extremity DVT. 2. Other findings discussed above. Abdomen/Pelvis CT 04/08/22 23:41 IMPRESSION: 1. Normal appendix. 2. Moderate diffuse urinary bladder wall thickening, with gas in the urinary bladder. Please see above discussion. 3. No hydronephrosis of either kidney. No visible renal or ureteral calculus. 4. Mild perinephric stranding bilaterally, see above discussion. 5. No free air or significant bowel distention. 6. Somewhat distended stomach. 7. The left ovary contains a 13 mm dominant follicle versus very small cyst. Significance unlikely due to small size. Very small amount of cul-de-sac fluid. 8. Other findings discussed above. Laboratory Results WBC 6.8 10^3/uL (4.0-10.0) 04/08/22 23:33 RBC 3.94 10^6/uL (4.1-5.3) L 04/08/22 23:33 Hgb 10.7 g/dL (11.5-15.3) L 04/08/22 23:33 Hct 32.4 % (37.0-47.0) L 04/08/22 23:33 MCV 82.2 fl (81-99) 04/08/22 23:33 MCH 27.2 pg (28.0-34.0) L 04/08/22 23:33 MCHC 33.0 g/dL (30.0-36.0) 04/08/22 23:33 RDW 14.2 % (12.1-15.1) 04/08/22 23:33 Plt Count 204 10^3/cmm (130-400) 04/08/22 23:33 MPV 10.5 fL (7.4-10.4) H 04/08/22 23:33 Neut % (Auto) 54.3 % 04/08/22 23:33 Lymph % (Auto) 34.0 % 04/08/22 23:33 [place] % (Auto) 6.9 % 04/08/22 23:33 Eos % (Auto) 3.5 % 04/08/22 23:33 Baso % (Auto) 1.0 % 04/08/22 23:33 Neut # (Auto) 3.68 10^3/uL (1.8-7.7) 04/08/22 23:33 Lymph # (Auto) 2.3 10^3/uL (0.8-4.8) 04/08/22 23:33 [place] # (Auto) 0.5 10^3/uL (0.2-0.9) 04/08/22 23:33 Eos # (Auto) 0.2 10^3/uL (0.0-0.8) 04/08/22 23: Baso # (Auto) 0.1 10^3/uL (0.0-0.1) 04/08/22 23:33 Nucleated RBC % (auto) 0 % 04/08/22 23: Nucleated RBCs # 0.0 /100WBC 04/08/22 23:33 Sodium 137 mmol/L (136-145) 04/08/22 23:33 Potassium 4.6 mmol/L (3.5-5.1) 04/08/22 23:33 Chloride 106 mmol/L (98-107) 04/08/22 23:33 Carbon Dioxide 22 mmol/L (22-29) 04/08/22 23:33 Anion Gap 13.6 (5-19) 04/08/22 23:33 BUN 35 mg/dL (6-20) H 04/08/22 23:33 Creatinine 1.8 mg/dL (0.5-0.9) H 04/08/22 23:33 GFR Calculation 32.0 mL/min (90-130) L 04/08/22 23:33 Glucose 210 mg/dL (65-115) H 04/08/22 23:33 Calculated Osmolality 298 mOsm/kg (285-295) H 04/08/22 23:33 Calcium 9.6 mg/dL (8.5-10.5) 04/08/22 23:33 Total Bilirubin 0.3 mg/dL (0.15-1.2) 04/08/22 23:33 AST 22 U/L (0-32) 04/08/22 23:33 ALT 34 U/L (0-33) H 04/08/22 23:33 Alkaline Phosphatase 100 U/L (35-105) 04/08/22 23:33 Total Protein 6.8 g/dL (6.6-8.7) 04/08/22 23:33 Albumin 3.2 g/dL (3.5-5.2) L 04/08/22 23:33 Globulin 3.6 g/dL (1.3-4.6) 04/08/22 23:33 Lipase 30 U/L (13-60) 04/08/22 23:33 HCG, Qual Negative (Negative) 04/08/22 23:33 Urine Color Yellow (Yellow) 04/08/22 23:20 Urine Appearance Sl hazy (CLEAR) A 04/08/22 23:20 Urine pH 5 (5-7) 04/08/22 23:20 Ur Specific [place] 1.015 (1.005-1.030) 04/08/22 23:20 Urine Protein 3+ (Negative) H 04/08/22 23:20 Urine Glucose (UA) Trace (Normal) H 04/08/22 23:20 Urine Ketones Negative (Negative) 04/08/22 23:20 Urine Blood 2+ (Negative) H 04/08/22 23:20 Urine Nitrate Positive (Negative) H 04/08/22 23:20 Urine Bilirubin Neg (Negative) 04/08/22 23:20 Urine Urobilinogen Neg mg/dL (Negative) 04/08/22 23:20 Ur Leukocyte Esterase 1+ (Negative) H 04/08/22 23:20 Urine RBC 5-10 /hpf (0-2) H 04/08/22 23:20 Urine WBC 25-40 /hpf (0-5) H 04/08/22 23:20 Ur Squamous Epith Cells 15-25 /hpf (0-5) H 04/08/22 23:20 Amorphous Sediment Not Reportable 04/08/22 23:20 Urine Bacteria 2+ /hpf (NONE) H 04/08/22 23:20 Discharge Plan Discharge Patient Disposition: Home Clinical Impression: Acute cystitis, Abdominal pain Condition: Stable Prescriptions: New hydrocodone-acetaminophen 5-325 mg tablet 1 tab PO Q6H PRN (Reason: pain) Qty: 14 0RF cephalexin 500 mg capsule 500 mg PO TID 7 Days Qty: 21 0RF ondansetron 4 mg tablet,disintegrating 4 mg PO Q6H PRN (Reason: nausea and vomiting) Qty: 14 0RF No Action gabapentin 100 mg capsule 100 mg PO TID furosemide 20 mg tablet 20 mg PO DAILY@0800 ergocalciferol (vitamin D2) 1,250 mcg (50,000 unit) capsule 1,250 mcg PO .weekly atorvastatin 40 mg tablet 40 mg PO DAILY carvedilol 6.25 mg tablet 6.25 mg PO BID Rx Instructions: must administer with a meal/food hydralazine 25 mg tablet 25 mg PO TID clopidogrel 75 mg tablet 75 mg PO DAILY isosorbide mononitrate 10 mg tablet 10 mg PO TID Rx Instructions: give doses 7 hrs apart aspirin [Adult Low Dose Aspirin] 81 mg tablet,delayed release (DR/EC) 81 mg PO DAILY Glucagon (HCl) Emergency Kit 1 mg recon soln 1 mg SUBCUT Q20M PRN (Reason: hypoglycemia) Qty: 3 3RF Rx Instructions: until target blood sugar attained Pepto-Bismol 262 mg Tablet 2 tab PO Q1H PRN (Reason: Heartburn) Rx Instructions: do not exceed 16 tabs per 24 hrs tamsulosin 0.4 mg capsule 0.4 mg PO BEDTIME pantoprazole 40 mg tablet,delayed release (DR/EC) 40 mg PO DAILY@12 albuterol sulfate 90 mcg/actuation HFA aerosol inhaler 2 puff inhalation Q8H PRN (Reason: shortness of breath or wheezing) ondansetron 4 mg tablet,disintegrating 4 mg PO Q6H PRN (Reason: nausea and vomiting) Qty: 14 0RF diphenhydramine HCl [Benadryl Allergy] 25 mg Tablet 25 mg PO BEDTIME insulin aspart U-100 [Novolog Flexpen U-100 Insulin] 100 unit/mL (3 mL) Insulin Pen See Rx Instructions .ROUTE .COMPLEX Rx Instructions: SLIDING SCALE subcutaneously TID insulin glargine [Lantus Solostar U-100 Insulin] 100 unit/mL (3 mL) insulin pen 15 unit SUBCUT BID Qty: 15 3RF cefdinir 300 mg capsule 300 mg PO BID 10 Days Qty: 20 0RF ondansetron 4 mg tablet,disintegrating 4 mg PO TID PRN (Reason: nausea and vomiting) 4 Days Qty: 12 0RF Discharge Orders: Discharge ED (Routine); Ordered 04/09/22 Ordered By: Ronny Ayala Referrals: Elizabeth Dougherty FNP [Primary Care Provider] - 1-3 days Discharge Diet: Advance as tolerated Discharge Activity: Resume usual activity Patient Instructions: Urinary Tract Infection in Women (ED), Abdominal Pain (ED), Opioid Safety Coding Level of Care Code ED Seam Hammerer for Chg Fwd Exam Comprehensive
[2022-04-08 23:33] VITALS: RESP 16
[2022-04-08] MEDS: ondansetron 2 mg/ML SDV 2 mL 4 MG IVP (23:33)
[2022-04-08] MEDS: HYDROmorphone 1 mg/mL INJ 1 mL 0.5 MG IVP (23:33)
[2022-04-08 23:37] LABS: Specific Gravity, Urine 1.015 (1.005-1.030); Urine Appearance SL Hazy (CLEAR); Urine Color Yellow (Yellow); pH Urine 5 (5-7)
[2022-04-08 23:38] LABS: Add Urine Microscopic? YES; Bilirubin Urine Neg (Negative); Blood Urine 2+ (Negative); Glucose Urine UA Trace (Normal); Ketones Urine Negative (Negative); Leukocyte Esterase Urine 1+ (Negative); Nitrate Urine Positive (Negative); Protein Urine 3+ (Negative); Urobilinogen Urine Neg (Negative)
[2022-04-08 23:39] LABS: Add Urine Culture? No; Bacteria Urine 2+ /hpf; Squamous Epithelial Cell Urine 15-25 /hpf (0-5); WBC Urine 25-40 /hpf (0-5)
--- NOTE | 2022-04-08 23:41 | CTR_ITS ---
PROCEDURE INFORMATION: Exam: CT Abdomen And Pelvis Without Contrast Exam date and time: 04/09/2022 12:34 AM Age: 36 years old Clinical indication: Abdominal pain; Generalized; Prior surgery; Surgery date: 6+ months; Surgery type: Cholecystectomy; Additional info: Abd pain TECHNIQUE: Imaging protocol: Computed tomography of the abdomen and pelvis without contrast. Radiation optimization: All CT scans at this facility use at least one of these dose optimization techniques: automated exposure control; mA and/or kV adjustment per patient size (includes targeted exams where dose is matched to clinical indication); or iterative reconstruction. COMPARISON: CT abdomen pelvis wo con [id number] 03/24/2022 11:34 PM RADIATION DOSE METRICS: Total DLP (mGy-cm): 421.23 FINDINGS: Lungs: No significant acute finding in the lower lungs. Stable calcified granuloma in the anterior right lower lobe. Very mild left pleural thickening versus minimal pleural fluid, unchanged. Diaphragm: There is again prominent elevation of the left hemidiaphragm. Liver: Unremarkable. Gallbladder and bile ducts: Prior cholecystectomy, no significant biliary tree dilation. Pancreas: Unremarkable. Spleen: Unremarkable. Adrenal glands: Unremarkable. Kidneys and ureters: No hydronephrosis of either kidney. No visible renal or ureteral calculus. Some apparent parenchymal scarring involving the lower left kidney, unchanged. Mild perinephric stranding bilaterally, greater on the left, similar to the prior exam. This is a nonspecific appearance and could well be chronic. Possibility of pyelonephritis is not entirely excluded, please correlate clinically. Stomach and bowel: The stomach appears somewhat distended at the time of scanning. Please correlate clinically. No significant bowel distention. There are no CT findings to strongly suggest diverticulitis. Appendix: The appendix is visualized and appears normal. Intraperitoneal space: No free intraperitoneal air, or generalized ascites. Vasculature: No evidence for abdominal aortic aneurysm. Lymph nodes: Several borderline and mildly enlarged inguinal lymph nodes bilaterally, similar to the prior exam. Urinary bladder: There appears to be moderate diffuse urinary bladder wall thickening, similar to the prior exam. While nonspecific, this could indicate evidence for cystitis. Large amount of gas in the urinary bladder. This could be secondary to recent catheterization or instrumentation. If that has not been performed, this could also indicate evidence for bladder infection, or less commonly fistula to the urinary bladder. Please correlate clinically. No visible calculus in the urinary bladder. Reproductive: The left ovary contains a 13 mm dominant follicle versus very small cyst. Significance unlikely due to small size. Very small amount of cul-de-sac fluid. Bones/joints: There is bilateral L5 spondylolysis, with mild grade 1 spondylolisthesis, not significantly changed. Soft tissues: There is some mild subcutaneous edema throughout the abdomen pelvis, similar to the prior exam. CT/CT abdomen pelvis wo con [id number] IMPRESSION: 1. Normal appendix. 2. Moderate diffuse urinary bladder wall thickening, with gas in the urinary bladder. Please see above discussion. 3. No hydronephrosis of either kidney. No visible renal or ureteral calculus. 4. Mild perinephric stranding bilaterally, see above discussion. 5. No free air or significant bowel distention. 6. Somewhat distended stomach. 7. The left ovary contains a 13 mm dominant follicle versus very small cyst. Significance unlikely due to small size. Very small amount of cul-de-sac fluid. 8. Other findings discussed above.
[2022-04-08] MEDS: cefTRIAXone 1,000 MG in sodium chloride 0.9% (plus) 50 ML 100 MG IV (23:50)
[2022-04-08 23:52] LABS: Basophils # 0.1 10^3/uL (0.0-0.1); Eosinophils # 0.2 10^3/uL (0.0-0.8); Eosinophils % 3.5 %; Hematocrit 32.4 % (37.0-47.0); Hemoglobin 10.7 g/dL (11.5-15.3); Lymphocytes # 2.3 10^3/uL (0.8-4.8); Mean Corpuscular Hemoglobin 27.2 pg (28.0-34.0); Mean Corpuscular Volume 82.2 fl (81-99); Mean Platelet Volume 10.5 fL (7.4-10.4); Monocytes # 0.5 10^3/uL (0.2-0.9); Monocytes % 6.9 %; Neutrophils # 3.68 10^3/uL (1.8-7.7); Neutrophils % 54.3 %; Nucleated Red Blood Cells % 0 %; Platelet Count 204 10^3/cmm (130-400); Red Blood Count 3.94 10^6/uL (4.1-5.3); Red Cell Distribution Width 14.2 % (12.1-15.1); White Blood Count 6.8 10^3/uL (4.0-10.0)
[2022-04-09 00:04] VITALS: BP 148/64; PULSE 90; RESP 16; O2SAT 98
[2022-04-09 00:13] LABS: HCG, Serum Qual Negative (Negative)
[2022-04-09 00:17] LABS: Alanine Aminotransferase 34 U/L (0-33); Albumin Level 3.2 g/dL (3.5-5.2); Alkaline Phosphatase 100 U/L (35-105); Anion Gap 13.6 (5-19); Aspartate Amino Transferase 22 U/L (0-32); Blood Urea Nitrogen 35 mg/dL (6-20); Calcium 9.6 mg/dL (8.5-10.5); Carbon Dioxide 22 mmol/L (22-29); Chloride 106 mmol/L (98-107); Globulin 3.6 g/dL (1.3-4.6); Glucose 210 mg/dL (65-115); Lipase 30 U/L (13-60); Osmolality Calculated 298 mOsm/kg (285-295); Potassium 4.6 mmol/L (3.5-5.1); Sodium 137 mmol/L (136-145); Total Bilirubin 0.3 mg/dL (0.15-1.2); Total Protein 6.8 g/dL (6.6-8.7)
[2022-04-09 01:00] VITALS: BP 155/77; PULSE 100; RESP 16; TEMP 36.6; O2SAT 97
[2022-04-09] MEDS: HYDROmorphone 1 mg/mL INJ 1 mL 0.5 MG IVP (01:49)
[2022-04-09 02:16] VITALS: BP 155/77; PULSE 100; RESP 16; TEMP 36.6; O2SAT 97
== END 2022-04-09 02:19 | disposition home or self-care (01) ==
PROVIDERS: Emergency Provider Emergency Medicine; PCP Nurse Practitioner Family
DX: N30.00 Acute cystitis without hematuria (principal); Z79.02 Long term (current) use of antithrombotics/antiplatelets; Z79.82 Long term (current) use of aspirin; Z79.4 Long term (current) use of insulin; Z77.22 Contact with and (suspected) exposure to environmental tobacco smoke (acute) (chronic); I25.10 Atherosclerotic heart disease of native coronary artery without angina pectoris; I11.0 Hypertensive heart disease with heart failure; I50.9 Heart failure, unspecified; E10.9 Type 1 diabetes mellitus without complications; E78.5 Hyperlipidemia, unspecified
CPT/HCPCS: 74176; 80053; 81001; 83690; 84703; 85025; 93971; 96365; 96375; 96376; 99285; J0696; J1170; J2405

== ENCOUNTER 2022-04-13 17:24 | Emergency (ER) | payer BC, MEDICAID, SELFPAY ==
[2022-04-13 17:53] VITALS: BP 94/69; PULSE 79; RESP 15; TEMP 36.4; O2SAT 100; BMI 26.2
--- NOTE | 2022-04-13 19:45 | XRR_ITS ---
PROCEDURE INFORMATION: Exam: XR Chest Exam date and time: 04/13/2022 7:58 PM Age: 36 years old Clinical indication: Pain; Chest pressure; Additional info: Cp TECHNIQUE: Imaging protocol: Radiologic exam of the chest. Views: 1 view. COMPARISON: CR (CHEST, ) 02/26/2022 8:02 PM FINDINGS: Lungs: Persistent left basilar opacity and pleuroparenchymal thickening and probable left pleural effusion similar to prior exam. Continued follow-up or CT correlation may be obtained if clinically indicated. The remaining lungs are otherwise clear. Pleural spaces: See Lungs finding. Heart/Mediastinum: No cardiomegaly. Bones/joints: No acute findings. XR/XR chest 1V portable [id number] IMPRESSION: Left basilar/pleuroparenchymal thickening and opacity and probable left pleural effusion. See discussion above.
--- NOTE | 2022-04-13 19:46 | ED_ITS ---
Documented by User: LORE Cabrera 04/14/22 03:59 HPI - Chest Pain General: Chief Complaint: Chest Pain Stated Complaint: Chest pains, Abd pains, blood in stool Time Seen by Provider: 04/13/22 19:36 History of Present Illness: Patient is a 36-year-old female comes to the ED with chest pain and abdominal pain. Past medical history of type 1 diabetes, past MS with cardiac stent placed, CHF and COPD. Chest pain started this afternoon while she was at rest and laying down. She describes the chest pain as a pressure on the center of her chest. She rates the chest pain a 9 out of 10. She was seen here in the ED back on April 08 and April 05 for abdominal pain. She was diagnosed with a UTI and sent home on antibiotics. She states that her abdominal pain was improving but started back up yesterday. Endorses having some nausea with the abdominal pain. Abdominal pain is located in the right side of the abdomen and she rates her pain currently a 8 out of 10. Denies any dysuria or hematuria. She endorses having loose stools today and had a little bit of red blood when she wiped. Associated symptoms: Reports abdominal pain and nausea; Deny dyspnea, fever(s), palpitations or vomiting Review of Systems Const: Denies: fever(s), chills or fatigue Eyes: Denies: change in vision or eye discomfort ENMT: Denies: throat pain, odynophagia, nasal discharge or nasal congestion Card: Reports: chest pain; Denies: palpitations, edema, swelling of feet/ankles, dyspnea on exertion or orthopnea Resp: Denies: dyspnea, productive cough or non-productive cough GI: Reports: abdominal pain, nausea, diarrhea and hematochezia; Denies: vomiting or constipation : Denies: flank pain, dysuria or hematuria Musc: Denies: neck pain, back pain or extremity swelling Skin/Breast: Denies: rash or new lesions Neuro: Denies: headache(s), numbness in extremities or weakness in extremities PFSH ED PFSH: Medical History Acute hyperglycemia Acute kidney injury superimposed on chronic kidney disease Anemia Anxiety Arnold-Chiari malformation CAD (coronary artery disease) Celiac disease CHF (congestive heart failure), NYHA class III Chronic headache Community acquired pneumonia Complicated UTI (urinary tract infection) COVID-19 Cystitis Diabetic gastroparesis -continue Reglan Diabetic neuropathy associated with type 1 diabetes mellitus DKA (diabetic ketoacidoses) Drug abuse Esophagitis Headache, common migraine, intractable, with status migrainosus History of pancreatitis HTN (hypertension) Hyperlipidemia Long-term insulin use Lymphadenitis Metabolic acidosis Migraine headache Neurogenic bladder Non-alcoholic fatty liver disease Pancreatitis PID (pelvic inflammatory disease) Pleural effusion 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 Pulmonary hypertension Pyelonephritis Recurrent UTI Respiratory failure Sepsis Tobacco dependence Transaminitis Uncontrolled type 1 diabetes mellitus Ureterolithiasis Surgical History History of cholecystectomy History of endoscopy History of lung surgery -s/p LLL lobectomy secondary to cavitary pneumonia (2017) Family History Grandfather Diabetes Other Heart disease Hypertension Social History Smoking and tobacco status: former smoker Second hand smoke exposure: Yes Alcohol intake: never Household members: children Housing: House Marital status: Single Current occupational status: unemployed Female Reproductive History: Date of last menstrual period: 07/24/21 Physical Exam Const: COMMON NORMALS: patient oriented x3 and alert HENMT: COMMON NORMALS: normocephalic HEAD & SCALP: normocephalic MOUTH: Normal oral and palatal mucosa present THROAT: posterior oropharynx normal and uvula midline Neck/C-Spine: COMMON NORMALS: supple GENERAL: Yes normal visual inspection Resp: COMMON NORMALS: normal respiratory effort, No retractions, No use of accessory muscles and clear to auscultation bilaterally AUSCULTATION: clear to auscultation bilaterally Cardio: COMMON NORMALS: regular rate, regular rhythm, S1 normal heart sound present, S2 normal heart sound present, No gallops present (Cardio), No clicks present (Cardio), No murmurs present (Cardio) and Peripheral pulses 2+ throughout RATE: regular rate RHYTHM: regular rhythm HEART SOUNDS: S1 normal heart sound present and S2 normal heart sound present PERIPHERAL PULSES: Peripheral pulses 2+ throughout GI: COMMON NORMALS: Normal to inspection, nondistended, normoactive bowel sounds present, Soft to palpation and no masses PALPATION: Yes Soft to palpation and Yes Tenderness to palpation present (GI) Details: RUQ : COMMON NORMALS: Yes no CVA tenderness BLADDER/KIDNEY EXAM: Yes no CVA tenderness Back/Pelvis: COMMON NORMALS: no CVA tenderness Extremity: COMMON NORMALS: normal to inspection Neuro: COMMON NORMALS: patient oriented x3 SENSORIUM/ORIENTATION: Yes alert GAIT: Yes Normal gait present Skin: GENERAL SKIN EXAM: dry skin Course Vital Signs: Vital signs: Vital Signs Temperature 97.6 F 04/13/22 17:53 Pulse Rate 72 04/14/22 02:00 Respiratory Rate 16 04/14/22 02:00 Blood Pressure 131/78 04/14/22 02:00 Pulse Oximetry 100 04/14/22 02:00 Oxygen Delivery Me thod 04/14/22 00:00 MDM - Chest Pain Medical Decision Making Patient is a 36-year-old female comes to the ED with chest pain and abdominal pain. Past medical history of type 1 diabetes, past MS with cardiac stent placed, CHF and COPD. Chest pain started this afternoon while she was at rest and laying down. She describes the chest pain as a pressure on the center of her chest. She rates the chest pain a 9 out of 10. She was seen here in the ED back on April 08 and April 05 for abdominal pain. She was diagnosed with a UTI and sent home on antibiotics. She states that her abdominal pain was improving but started back up yesterday. Endorses having some nausea with the abdominal pain. Vitals are stable. Exam shows some right upper abdominal tenderness. Rest of exam is benign and patient appears in no acute distress. CBC and CMP are unremarkable. EKG showed no acute findings. Baseline troponin was 73 and 2-hour troponin was 81 with a delta of 8. BNP is 39,000 which is typical for patient. CT of chest/abdomen and pelvis was performed. It showed an interval resolution of multifocal opacities in the lungs. Also showed some urinary bladder wall thickening but no other acute findings noted. Patient was given IV morphine and nausea meds to help with symptoms. I discussed patient case with Dr. Larose and he agreed patient was stable for discharge home. Patient was diagnosed with a UTI and chest pain. She was given a dose of IV Rocephin and half a liter of fluids. Here in the ED and discharged home with a presc ription for Cipro. Patient was told to follow-up with her PCP within the next week for reevaluation. Return to ED precautions given. Patient understood and agreed with plan. Lab Data I reviewed the patient's lab results. : 04/13/22 21:18 04/13/22 21:20 Radiology Impressions Chest X-Ray 04/13/22 19:45 IMPRESSION: Left basilar/pleuroparenchymal thickening and opacity and probable left pleural effusion. See discussion above. Chest/Abdomen/Pelvis CT 04/13/22 22:40 IMPRESSION: 1. Comparison chest CT 01/26/2022. Interval resolution of multifocal opacities/ground-glass opacities. 2. Stable other nonacute pulmonary findings as described above. 3. Coronary and osseous findings. See discussion above. IMPRESSION: 1. Comparison CT 04/09/2022. Interval improvement of diffuse anasarca. 2. Urinary bladder abnormality as described above. 3. No acute abdominopelvic findings otherwise. Somewhat limited exam due to lack of contrast. Laboratory Results WBC 6.8 10^3/uL (4.0-10.0) 04/13/22 21:18 RBC 4.59 10^6/uL (4.1-5.3) 04/13/22 21:18 Hgb 12.2 g/dL (11.5-15.3) 04/13/22 21:18 Hct 37.3 % (37.0-47.0) 04/13/22 21:18 MCV 81.3 fl (81-99) 04/13/22 21:18 MCH 26.6 pg (28.0-34.0) L 04/13/22 21:18 MCHC 32.7 g/dL (30.0-36.0) 04/13/22 21:18 RDW 14.3 % (12.1-15.1) 04/13/22 21:18 Plt Count 205 10^3/cmm (130-400) 04/13/22 21:18 MPV 10.0 fL (7.4-10.4) 04/13/22 21:18 Neut % (Auto) 54.8 % 04/13/22 21:18 Lymph % (Auto) 34.1 % 04/13/22 21:18 Larue % (Auto) 7.2 % 04/13/22 21:18 Eos % (Auto) 3.1 % 04/13/22 21:18 Baso % (Auto) 0.7 % 04/13/22 21:18 Neut # (Auto) 3.73 10^3/uL (1.8-7.7) 04/13/22 21:18 Lymph # (Auto) 2.3 10^3/uL (0.8-4.8) 04/13/22 21:18 Larue # (Auto) 0.5 10^3/uL (0.2-0.9) 04/13/22 21:18 Eos # (Auto) 0.2 10^3/uL (0.0-0.8) 04/13/22 21:18 Baso # (Auto) 0.1 10^3/uL (0.0-0.1) 04/13/22 21:18 Nucleated RBC % (auto) 0 % 04/13/22 21:18 Nucleated RBCs # 0.0 /100WBC 04/13/22 21:18 Sodium 135 mmol/L (136-145) L 04/13/22 21:20 Potassium 4.8 mmol/L (3.5-5.1) 04/13/22 21:20 Chloride 106 mmol/L (98-107) 04/13/22 21:20 Carbon Dioxide 17 mmol/L (22-29) L 04/13/22 21:20 Anion Gap 16.8 (5-19) 04/13/22 21:20 BUN 45 mg/dL (6-20) H 04/13/22 21:20 Creatinine 1.8 mg/dL (0.5-0.9) H 04/13/22 21:20 GFR Calculation 32.0 mL/min (90-130) L 04/13/22 21:20 Glucose 176 mg/dL (65-115) H 04/13/22 21:20 Calculated Osmolality 296 mOsm/kg (285-295) H 04/13/22 21:20 Calcium 9.3 mg/dL (8.5-10.5) 04/13/22 21:20 Total Bilirubin 0.3 mg/dL (0.15-1.2) 04/13/22 21:20 AST 34 U/L (0-32) H 04/13/22 21:20 ALT 52 U/L (0-33) H 04/13/22 21:20 Alkaline Phosphatase 123 U/L (35-105) H 04/13/22 21:20 Troponin T Baseline 73 ng/L (0-10) H 04/13/22 21:20 Troponin T 120 Minute 81.61 ng/L (0-10) H 04/13/22 23:30 Delta Troponin T 8.61 ABS# (0-10) 04/13/22 23:30 NT-Pro-B Natriuret Pep 06500 pg/mL (0-125) H 04/13/22 21:20 Total Protein 7.5 g/dL (6.6-8.7) 04/13/22 21:20 Albumin 3.4 g/dL (3.5-5.2) L 04/13/22 21:20 Globulin 4.1 g/dL (1.3-4.6) 04/13/22 21:20 Lipase 22 U/L (13-60) 04/13/22 21:20 Urine Color Yellow (Yellow) 04/13/22 19:49 Urine Appearance Hazy (CLEAR) A 04/13/22 19:49 Urine pH 5 (5-7) 04/13/22 19:49 Ur Specific [place] 1.020 (1.005-1.030) 04/13/22 19:49 Urine Protein 3+ (Negative) H 04/13/22 19:49 Urine Glucose (UA) Norm (Normal) 04/13/22 19:49 Urine Ketones Negative (Negative) 04/13/22 19:49 Urine Blood 3+ (Negative) H 04/13/22 19:49 Urine Nitrate Positive (Negative) H 04/13/22 19:49 Urine Bilirubin Neg (Negative) 04/13/22 19:49 Urine Urobilinogen Neg mg/dL (Negative) 04/13/22 19:49 Ur Leukocyte Esterase 1+ (Negative) H 04/13/22 19:49 Urine RBC 10-15 /hpf (0-2) H 04/13/22 19:49 Urine WBC 25-40 /hpf (0-5) H 04/13/22 19:49 Ur Squamous Epith Cells 15-25 /hpf (0-5) H 04/13/22 19:49 Amorphous Sediment Not Reportable 10/21/22 19:49 Urine Bacteria 1+ /hpf (NONE) H 04/13/22 19:49 EKG Data EKG 1: EKG interpretation date: 04/13/22 Interpretation: Sinus rhythm, 67 bpm, no ST segment elevation or depression seen. Dr. Larose reviewed EKG as well and agreed with findings. Discharge Plan Discharge Patient Disposition: Home Clinical Impression: UTI (urinary tract infection) Qualifiers: Urinary tract infection type: acute cystitis Hematuria presence: with hematuria Qualified Code(s): N30.01 - Acute cystitis with hematuria Chest pain Qualifiers: Chest pain type: unspecified Qualified Code(s): R07.9 - Chest pain, unspecified Condition: Stable Prescriptions: New ciprofloxacin HCl 500 mg tablet 500 mg PO BID 7 Days Qty: 14 0RF ondansetron 4 mg tablet,disintegrating 4 mg PO Q8H PRN (Reason: nausea and vomiting) Qty: 15 0RF No Action gabapentin 100 mg capsule 100 mg PO TID ergocalciferol (vitamin D2) 1,250 mcg (50,000 unit) capsule 1,250 mcg PO .weekly aspirin [Adult Low Dose Aspirin] 81 mg tablet,delayed release (DR/EC) 81 mg PO DAILY Glucagon (HCl) Emergency Kit 1 mg recon soln 1 mg SUBCUT Q20M PRN (Reason: hypoglycemia) Qty: 3 3RF Rx Instructions: until target blood sugar attained furosemide 20 mg tablet 20 mg PO DAILY@0800 Qty: 90 1RF atorvastatin 40 mg tablet 40 mg PO DAILY Qty: 90 1RF carvedilol 6.25 mg tablet 6.25 mg PO BID Qty: 180 1RF Rx Instructions: must administer with a meal/food hydralazine 25 mg tablet 25 mg PO TID Qty: 270 1RF clopidogrel 75 mg tablet 75 mg PO DAILY Qty: 90 1RF isosorbide mononitrate 10 mg tablet 10 mg PO TID Qty: 270 1RF Rx Instructions: give doses 7 hrs apart Pepto-Bismol 262 mg Tablet 2 tab PO Q1H PRN (Reason: Heartburn) Rx Instructions: do not exceed 16 tabs per 24 hrs tamsulosin 0.4 mg capsule 0.4 mg PO BEDTIME pantoprazole 40 mg tablet,delayed release (DR/EC) 40 mg PO DAILY@12 albuterol sulfate 90 mcg/actuation HFA aerosol inhaler 2 puff inhalation Q8H PRN (Reason: shortness of breath or wheezing) ondansetron 4 mg tablet,disintegrating 4 mg PO Q6H PRN (Reason: nausea and vomiting) Qty: 14 0RF hydrocodone-acetaminophen 5-325 mg tablet 1 tab PO Q6H PRN (Reason: pain) Qty: 14 0RF cephalexin 500 mg capsule 500 mg PO TID 7 Days Qty: 21 0RF ondansetron 4 mg tablet,disintegrating 4 mg PO Q6H PRN (Reason: nausea and vomiting) Qty: 14 0RF diphenhydramine HCl [Benadryl Allergy] 25 mg Tablet 25 mg PO BEDTIME insulin aspart U-100 [Novolog Flexpen U-100 Insulin] 100 unit/mL (3 mL) Insulin Pen See Rx Instructions .ROUTE .COMPLEX Rx Instructions: SLIDING SCALE subcutaneously TID insulin glargine [Lantus Solostar U-100 Insulin] 100 unit/mL (3 mL) insulin pen 15 unit SUBCUT BID Qty: 15 3RF cefdinir 300 mg capsule 300 mg PO BID 10 Days Qty: 20 0RF Discharge Orders: Discharge ED (Routine); Ordered 04/14/22 Ordered By: Les Guy Referrals: Elizabeth Dougherty FNP [Primary Care Provider] - Discharge Diet: Regular Discharge Activity: Increase activity as tolerated Patient Instructions: Urinary Tract Infection in Women (DC) Activity Restrictions/Additional Instructions: Follow-up with medical provider as directed in the next 3 to 5 days for reeval uation. Take medications as prescribed. Return to the ER or your medical provider if condition worsens. Please read and understand discharge instructions. Thank you for choosing [facility] for your healthcare needs today. Please realize this is an emergency room and that we are providing you with a medical screening exam and this may not be complete and all inclusive of all the testing and or work up that you may need to determine your ailment or severity of your illness. It is very important that you follow up as instructed or that you return to the Emergency Department should you have concerns or if your condition changes or worsens in any way. Coding Level of Care Code ED Accounts Adjustable Clerk for Chg Fwd Exam Comprehensive Documented by User: Jak Larose DO 04/14/22 04:39 HPI - Chest Pain General: Chief Complaint: Chest Pain Stated Complaint: Chest pains, Abd pains, blood in stool Time Seen by Provider: 04/13/22 19:36 PFSH ED PFSH: Medical History Acute hyperglycemia Acute kidney injury superimposed on chronic kidney disease Anemia Anxiety Arnold-Chiari malformation CAD (coronary artery disease) Celiac disease CHF (congestive heart failure), NYHA class III Chronic headache Community acquired pneumonia Complicated UTI (urinary tract infection) COVID-19 Cystitis Diabetic gastroparesis -continue Reglan Diabetic neuropathy associated with type 1 diabetes mellitus DKA (diabetic ketoacidoses) Drug abuse Esophagitis Headache, common migraine, intractable, with status migrainosus History of pancreatitis HTN (hypertension) Hyperlipidemia Long-term insulin use Lymphadenitis Metabolic acidosis Migraine headache Neurogenic bladder Non-alcoholic fatty liver disease Pancreatitis PID (pelvic inflammatory disease) Pleural effusion 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 Pulmonary hypertension Pyelonephritis Recurrent UTI Respiratory failure Sepsis Tobacco dependence Transaminitis Uncontrolled type 1 diabetes mellitus Ureterolithiasis Surgical History History of cholecystectomy History of endoscopy History of lung surgery -s/p LLL lobectomy secondary to cavitary pneumonia (2017) Family History Grandfather Diabetes Other Heart disease Hypertension Social History Smoking and tobacco status: former smoker Second hand smoke exposure: Yes Alcohol intake: never Household members: children Housing: House Marital status: Single Current occupational status: unemployed Course Vital Signs: Vital signs: Vital Signs Temperature 97.6 F 04/13/22 17:53 Pulse Rate 72 04/14/22 02:00 Respiratory Rate 16 04/14/22 02:00 Blood Pressure 131/78 04/14/22 02:00 Pulse Oximetry 100 04/14/22 02:00 Oxygen Delivery Me thod 04/14/22 00:00 MDM - Chest Pain Medical Decision Making Patient is a 36-year-old female comes to the ED with chest pain and abdominal pain. Past medical history of type 1 diabetes, past MS with cardiac stent placed, CHF and COPD. Chest pain started this afternoon while she was at rest and laying down. She describes the chest pain as a pressure on the center of her chest. She rates the chest pain a 9 out of 10. She was seen here in the ED back on April 08 and April 05 for abdominal pain. She was diagnosed with a UTI and sent home on antibiotics. She states that her abdominal pain was improving but started back up yesterday. Endorses having some nausea with the abdominal pain. Vitals are stable. Exam shows some right upper abdominal tenderness. Rest of exam is benign and patient appears in no acute distress. CBC and CMP are unremarkable. EKG showed no acute findings. Baseline troponin was 73 and 2-hour troponin was 81 with a delta of 8. BNP is 39,000 which is typical for patient. CT of chest/abdomen and pelvis was performed. It showed an interval resolution of multifocal opacities in the lungs. Also showed some urinary bladder wall thickening but no other acute findings noted. Patient was given IV morphine and nausea meds to help with symptoms. I discussed patient case with Dr. Larose and he agreed patient was stable for discharge home. Patient was diagnosed with a UTI and chest pain. She was given a dose of IV Rocephin and half a liter of fluids. Here in the ED and discharged home with a prescription for Cipro. Patient was told to follow-up with her PCP within the next week for reevaluation. Return to ED precautions given. Patient understood and agreed with plan. This patient was originally seen by Mr. Malena PA-C.? I agree with his history, evaluation, and treatment. Lab Data : 04/13/22 21:18 04/13/22 21:20 Radiology Impressions Chest X-Ray 04/13/22 19:45 IMPRESSION: Left basilar/pleuroparenchymal thickening and opacity and probable left pleural effusion. See discussion above. Chest/Abdomen/Pelvis CT 04/13/22 22:40 IMPRESSION: 1. Comparison chest CT 01/26/2022. Interval resolution of multifocal opacities/ground-glass opacities. 2. Stable other nonacute pulmonary findings as described above. 3. Coronary and osseous findings. See discussion above. IMPRESSION: 1. Comparison CT 04/09/2022. Interval improvement of diffuse anasarca. 2. Urinary bladder abnormality as described above. 3. No acute abdominopelvic findings otherwise. Somewhat limited exam due to lack of contrast. Laboratory Results WBC 6.8 10^3/uL (4.0-10.0) 04/13/22 21:18 RBC 4.59 10^6/uL (4.1-5.3) 04/13/22 21:18 Hgb 12.2 g/dL (11.5-15.3) 04/13/22 21:18 Hct 37.3 % (37.0-47.0) 04/13/22:18 MCV 81.3 fl (81-99) 04/13/22 21:18 MCH 26.6 pg (28.0-34.0) L 04/13/22:18 MCHC 32.7 g/dL (30.0-36.0) 04/13/22 21:18 RDW 14.3 % (12.1-15.1) 04/13/22 21:18 Plt Count 205 10^3/cmm (130-400) 04/13/22 21:18 MPV 10.0 fL (7.4-10.4) 04/13/22 21:18 Neut % (Auto) 54.8 % 04/13/22 21:18 Lymph % (Auto) 34.1 % 04/13/22:18 Larue % (Auto) 7.2 % 04/13/22:18 Eos % (Auto) 3.1 % 04/13/22 21:18 Baso % (Auto) 0.7 % 04/13/22:18 Neut # (Auto) 3.73 10^3/uL (1.8-7.7) 04/13/22:18 Lymph # (Auto) 2.3 10^3/uL (0.8-4.8) 04/13/22 21:18 [place] # (Auto) 0.5 10^3/uL (0.2-0.9) 04/13/22 21:18 Eos # (Auto) 0.2 10^3/uL (0.0-0.8) 04/13/22 21:18 Baso # (Auto) 0.1 10^3/uL (0.0-0.1) 04/13/22 21:18 Nucleated RBC % (auto) 0 % 04/13/22 21:18 Nucleated RBCs # 0.0 /100WBC 04/13/22 21:18 Sodium 135 mmol/L (136-145) L 04/13/22 21:20 Potassium 4.8 mmol/L (3.5-5.1) 04/13/22 21:20 Chloride 106 mmol/L (98-107) 04/13/22 21:20 Carbon Dioxide 17 mmol/L (22-29) L 04/13/22 21:20 Anion Gap 16.8 (5-19) 04/13/22 21:20 BUN 45 mg/dL (6-20) H 04/13/22 21:20 Creatinine 1.8 mg/dL (0.5-0.9) H 04/13/22 21:20 GFR Calculation 32.0 mL/min (90-130) L 04/13/22 21:20 Glucose 176 mg/dL (65-115) H 04/13/22 21:20 Calculated Osmolality 296 mOsm/kg (285-295) H 04/13/22 21:20 Calcium 9.3 mg/dL (8.5-10.5) 04/13/22 21:20 Total Bilirubin 0.3 mg/dL (0.15-1.2) 04/13/22 21:20 AST 34 U/L (0-32) H 04/13/22 21:20 ALT 52 U/L (0-33) H 04/13/22 21:20 Alkaline Phosphatase 123 U/L (35-105) H 04/13/22 21:20 Troponin T Baseline 73 ng/L (0-10) H 04/13/22 21:20 Troponin T 120 Minute 81.61 ng/L (0-10) H 04/13/22 23:30 Delta Troponin T 8.61 ABS# (0-10) 04/13/22 23:30 NT-Pro-B Natriuret Pep 95400 pg/mL (0-125) H 04/13/22 21:20 Total Protein 7.5 g/dL (6.6-8.7) 04/13/22 21:20 Albumin 3.4 g/dL (3.5-5.2) L 04/13/22 21:20 Globulin 4.1 g/dL (1.3-4.6) 04/13/22 21:20 Lipase 22 U/L (13-60) 04/13/22 21:20 Urine Color Yellow (Yellow) 04/13/22 19:49 Urine Appearance Hazy (CLEAR) A 04/13/22 19:49 Urine pH 5 (5-7) 04/13/22 19:49 Ur Specific [place] 1.020 (1.005-1.030) 04/13/22 19:49 Urine Protein 3+ (Negative) H 04/13/22 19:49 Urine Glucose (UA) Norm (Normal) 04/13/22 19:49 Urine Ketones Negative (Negative) 04/13/22 19:49 Urine Blood 3+ (Negative) H 04/13/22 19:49 Urine Nitrate Positive (Negative) H 04/13/22 19:49 Urine Bilirubin Neg (Negative) 04/13/22 19:49 Urine Urobilinogen Neg mg/dL (Negative) 04/13/22 19:49 Ur Leukocyte Esterase 1+ (Negative) H 04/13/22 19:49 Urine RBC 10-15 /hpf (0-2) H 04/13/22 19:49 Urine WBC 25-40 /hpf (0-5) H 04/13/22 19:49 Ur Squamous Epith Cells 15-25 /hpf (0-5) H 04/13/22 19:49 Amorphous Sediment Not Reportable 04/13/22 19:49 Urine Bacteria 1+ /hpf (NONE) H 04/13/22 19:49 Discharge Plan Discharge Patient Disposition: Home Clinical Impression: UTI (urinary tract infection) Qualifiers: Urinary tract infection type: acute cystitis Hematuria presence: with hematuria Qualified Code(s): N30.01 - Acute cystitis with hematuria Chest pain Qualifiers: Chest pain type: unspecified Qualified Code(s): R07.9 - Chest pain, unspecified Condition: Stable Prescriptions: New ciprofloxacin HCl 500 mg tablet 500 mg PO BID 7 Days Qty: 14 0RF ondansetron 4 mg tablet,disintegrating 4 mg PO Q8H PRN (Reason: nausea and vomiting) Qty: 15 0RF No Action gabapentin 100 mg capsule 100 mg PO TID ergocalciferol (vitamin D2) 1,250 mcg (50,000 unit) capsule 1,250 mcg PO .weekly aspirin [Adult Low Dose Aspirin] 81 mg tablet,delayed release (DR/EC) 81 mg PO DAILY Glucagon (HCl) Emergency Kit 1 mg recon soln 1 mg SUBCUT Q20M PRN (Reason: hypoglycemia) Qty: 3 3RF Rx Instructions: until target blood sugar attained furosemide 20 mg tablet 20 mg PO DAILY@0800 Qty: 90 1RF atorvastatin 40 mg tablet 40 mg PO DAILY Qty: 90 1RF carvedilol 6.25 mg tablet 6.25 mg PO BID Qty: 180 1RF Rx Instructions: must administer with a meal/food hydralazine 25 mg tablet 25 mg PO TID Qty: 270 1RF clopidogrel 75 mg tablet 75 mg PO DAILY Qty: 90 1RF isosorbide mononitrate 10 mg tablet 10 mg PO TID Qty: 270 1RF Rx Instructions: give doses 7 hrs apart Pepto-Bismol 262 mg Tablet 2 tab PO Q1H PRN (Reason: Heartburn) Rx Instructions: do not exceed 16 tabs per 24 hrs tamsulosin 0.4 mg capsule 0.4 mg PO BEDTIME pantoprazole 40 mg tablet,delayed release (DR/EC) 40 mg PO DAILY@12 albuterol sulfate 90 mcg/actuation HFA aerosol inhaler 2 puff inhalation Q8H PRN (Reason: shortness of breath or wheezing) ondansetron 4 mg tablet,disintegrating 4 mg PO Q6H PRN (Reason: nausea and vomiting) Qty: 14 0RF hydrocodone-acetaminophen 5-325 mg tablet 1 tab PO Q6H PRN (Reason: pain) Qty: 14 0RF cephalexin 500 mg capsule 500 mg PO TID 7 Days Qty: 21 0RF ondansetron 4 mg tablet,disintegrating 4 mg PO Q6H PRN (Reason: nausea and vomiting) Qty: 14 0RF diphenhydramine HCl [Benadryl Allergy] 25 mg Tablet 25 mg PO BEDTIME insulin aspart U-100 [Novolog Flexpen U-100 Insulin] 100 unit/mL (3 mL) Insulin Pen See Rx Instructions .ROUTE .COMPLEX Rx Instructions: SLIDING SCALE subcutaneously TID insulin glargine [Lantus Solostar U-100 Insulin] 100 unit/mL (3 mL) insulin pen 15 unit SUBCUT BID Qty: 15 3RF cefdinir 300 mg capsule 300 mg PO BID 10 Days Qty: 20 0RF Discharge Orders: Discharge ED (Routine); Ordered 04/14/22 Ordered By: Les Guy Referrals: Elizabeth Dougherty FNP [Primary Care Provider] - Discharge Diet: Regular Discharge Activity: Increase activity as tolerated Patient Instructions: Urinary Tract Infection in Women (DC) Activity Restrictions/Additional Instructions: Follow-up with medical provider as directed in the next 3 to 5 days for reevaluation. Take medications as prescribed. Return to the ER or your medical provider if condition worsens. Please read and understand discharge instructions. Thank you for choosing [facility] for your healthcare needs today. Please realize this is an emergency room and that we are providing you with a medical screening exam and this may not be complete and all inclusive of all the testing and or work up that you may need to determine your ailment or severity of your illness. It is very important that you follow up as instructed or that you return to the Emergency Department should you have concerns or if your condition changes or worsens in any way. Coding Level of Care Code ED Accounts Adjustable Clerk for Reji Fwtanner Exam Comprehensive
--- NOTE | 2022-04-13 19:53 | ECG_ITS ---
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 Measurements Intervals [place] Rate: 76 P: 46 KS: 154 QRS: 50 QRSD: 90 T: 72 QT: 387 QTc: 436 Interpretive Statements SINUS RHYTHM NONSPECIFIC ST & T-WAVE ABNORMALITY Compared to ECG 04/03/2022 16:25:51 No significant changes Electronically Signed On 04-16-2022 23:05:58 CDT by Maame Montero M.D. [email or web address] [id number]
[2022-04-13 20:08] LABS: Add Urine Microscopic? YES; Bilirubin Urine Neg (Negative); Blood Urine 3+ (Negative); Glucose Urine UA Norm (Normal); Ketones Urine Negative (Negative); Leukocyte Esterase Urine 1+ (Negative); Nitrate Urine Positive (Negative); Protein Urine 3+ (Negative); Squamous Epithelial Cell Urine 15-25 /hpf (0-5); Urine Appearance Hazy (CLEAR); Urine Color Yellow (Yellow); Urobilinogen Urine Neg (Negative); WBC Urine 25-40 /hpf (0-5); pH Urine 5 (5-7)
[2022-04-13 20:09] LABS: Add Urine Culture? No; Bacteria Urine 1+ /hpf
[2022-04-13 21:25] LABS: Basophils # 0.1 10^3/uL (0.0-0.1); Basophils % 0.7 %; Eosinophils # 0.2 10^3/uL (0.0-0.8); Eosinophils % 3.1 %; Hematocrit 37.3 % (37.0-47.0); Hemoglobin 12.2 g/dL (11.5-15.3); Lymphocytes # 2.3 10^3/uL (0.8-4.8); Lymphocytes % 34.1 %; Mean Corpuscular HGB Conc 32.7 g/dL (30.0-36.0); Mean Corpuscular Hemoglobin 26.6 pg (28.0-34.0); Mean Corpuscular Volume 81.3 fl (81-99); Monocytes # 0.5 10^3/uL (0.2-0.9); Monocytes % 7.2 %; Neutrophils # 3.73 10^3/uL (1.8-7.7); Neutrophils % 54.8 %; Nucleated Red Blood Cells % 0 %; Platelet Count 205 10^3/cmm (130-400); Red Blood Count 4.59 10^6/uL (4.1-5.3); Red Cell Distribution Width 14.3 % (12.1-15.1); White Blood Count 6.8 10^3/uL (4.0-10.0)
[2022-04-13 21:30] VITALS: RESP 17
[2022-04-13] MEDS: ondansetron 2 mg/ML SDV 2 mL 4 MG IVP (21:30)
[2022-04-13] MEDS: sodium chloride 0.9% 500 ML 999 ML IV (21:30)
[2022-04-13] MEDS: morphine 4 mg/mL SDV 1 mL IVP ×2 (21:30→23:12)
--- NOTE | 2022-04-13 21:45 | ECG_ITS ---
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 Measurements Intervals [place] Rate: 67 P: 13 [place]: 139 QRS: 33 QRSD: 91 T: 83 QT: 424 QTc: 448 Interpretive Statements SINUS RHYTHM NONSPECIFIC ST & T-WAVE ABNORMALITY Compared to ECG 04/13/2022 19:53:44 No significant changes Electronically Signed On 04-16-2022 23:17:21 CDT by Maame Montero M.D. [id number]
[2022-04-13 21:50] LABS: Troponin(5th) Baseline 73 ng/L (0-10)
[2022-04-13 22:00] VITALS: BP 142/79; PULSE 64; RESP 16; O2SAT 98
[2022-04-13 22:00] LABS: Alanine Aminotransferase 52 U/L (0-33); Albumin Level 3.4 g/dL (3.5-5.2); Alkaline Phosphatase 123 U/L (35-105); Anion Gap 16.8 (5-19); Aspartate Amino Transferase 34 U/L (0-32); Blood Urea Nitrogen 45 mg/dL (6-20); Calcium 9.3 mg/dL (8.5-10.5); Carbon Dioxide 17 mmol/L (22-29); Chloride 106 mmol/L (98-107); Globulin 4.1 g/dL (1.3-4.6); Glucose 176 mg/dL (65-115); Lipase 22 U/L (13-60); Osmolality Calculated 296 mOsm/kg (285-295); Potassium 4.8 mmol/L (3.5-5.1); Sodium 135 mmol/L (136-145); Total Bilirubin 0.3 mg/dL (0.15-1.2); Total Protein 7.5 g/dL (6.6-8.7)
--- NOTE | 2022-04-13 22:40 | CTR_ITS ---
PROCEDURE INFORMATION: Exam: CT Chest Without Contrast; Diagnostic Exam date and time: 04/13/2022 10:49 PM Age: 36 years old Clinical indication: Abdominal pain; Generalized; Chest pressure; Prior surgery; Surgery type: Gb; Patient HX: C/O of chest and abd pain. Kavon with bacteriuria. ; Additional info: Chest pain and abdominal pain TECHNIQUE: Imaging protocol: Diagnostic computed tomography of the chest without contrast. Radiation optimization: All CT scans at this facility use at least one of these dose optimization techniques: automated exposure control; mA and/or kV adjustment per patient size (includes targeted exams where dose is matched to clinical indication); or iterative reconstruction. COMPARISON: [place] [id number] 01/26/2022 10:58 AM RADIATION DOSE METRICS: Total DLP (mGy-cm): 473.49 FINDINGS: Lungs: Parenchymal linear scarring/postsurgical changes with probable left hilar high-density suture similar to prior exam with associated small area of pleuroparenchymal thickening and calcification, unchanged. Linear scarring-atelectasis in the posterior right lower lobe is also noted. A few tiny pleural base nodular density along the right fissure are again noted, the largest measuring 8 mm which is centrally calcified, unchanged and are most likely benign. Previously noted multifocal ground-glass opacities and consolidations have resolved. No new acute consolidation or new ground-glass opacity. Pleural spaces: See Lungs finding. Heart: Normal heart size with calcifications and/or stents within the left LAD, which has progressed since prior exam. Lymph nodes: Calcified subcarinal lymph node consistent with chronic granulomatous disease, similar to prior exam. Vasculature: Unremarkable. No aortic aneurysm. Bones/joints: Mild left rib deformities, presumably postsurgical. Heterogeneous trabecular densities throughout multiple ribs of uncertain etiology similar to prior exam. Old healed multiple left lateral anterior rib fractures. Soft tissues: No acute findings. PROCEDURE INFORMATION: Exam: CT Abdomen And Pelvis Without Contrast Exam date and time: 04/13/2022 10:49 PM Age: 36 years old Clinical indication: Abdominal pain; Generalized; Chest pressure; Prior surgery; Surgery type: Gb; Patient HX: C/O of chest and abd pain. Kavon with bacteriuria. ; Additional info: Chest pain and abdominal pain TECHNIQUE: Imaging protocol: Computed tomography of the abdomen and pelvis without contrast. Radiation optimization: All CT scans at this facility use at least one of these dose optimization techniques: automated exposure control; mA and/or kV adjustment per patient size (includes targeted exams where dose is matched to clinical indication); or iterative reconstruction. COMPARISON: CT abdomen pelvis wo con [id number] 04/09/2022 12:34 AM RADIATION DOSE METRICS: Total DLP (mGy-cm): 473.49 FINDINGS: Diaphragm: Elevated left hemidiaphragm, unchanged. Liver: Normal. No mass. Gallbladder and bile ducts: Prior cholecystectomy. No abnormal bile duct dilatation. Pancreas: Normal. No ductal dilation. Spleen: Normal spleen size. Calcified splenic granuloma. Adrenal glands: Normal. No mass. Kidneys and ureters: No obstructing calculus. No hydronephrosis. Stomach and bowel: Small-moderate amount of fecal retention. No obvious bowel dilatation, pneumatosis or suspicious bowel wall thickening however assessment is limited due to lack of contrast. Appendix: No evidence of appendicitis. Intraperitoneal space: Unremarkable. No free air. No significant fluid collection. Vasculature: No abdominal aortic aneurysm. Lymph nodes: No enlarged lymph nodes. Urinary bladder: Nonspecific bladder wall thickening with air in the anterior bladder lumen. Findings may be related to recent instrumentation versus bladder-bowel fistula. Findings are similar to previous exam. Reproductive: Normal uterine and adnexal contour. Bones/joints: No acute fracture. Soft tissues: Interval improvement of generalized anasarca. CT/[place] [id number] IMPRESSION: 1. Comparison chest CT 01/26/2022. Interval resolution of multifocal opacities/ground-glass opacities. 2. Stable other nonacute pulmonary findings as described above. 3. Coronary and osseous findings. See discussion above. IMPRESSION: 1. Comparison CT 04/09/2022. Interval improvement of diffuse anasarca. 2. Urinary bladder abnormality as described above. 3. No acute abdominopelvic findings otherwise. Somewhat limited exam due to lack of contrast.
[2022-04-13 23:12] VITALS: RESP 18
[2022-04-13 23:53] LABS: Troponin 5 2HR 81.61 ng/L (0-10)
[2022-04-14] VITALS: BP 125/73; PULSE 65; RESP 16; O2SAT 98
[2022-04-14] LABS: Troponin 5 2HR Delta 8.61 ABS# (0-10)
[2022-04-14] MEDS: metoclopramide 5 mg/mL SDV 2 mL 10 MG IVP (01:04)
[2022-04-14] MEDS: cefTRIAXone 1,000 MG in sodium chloride 0.9% (plus) 50 ML 100 MG IV (01:07)
--- NOTE | 2022-04-14 01:38 | ECG_ITS ---
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 Measurements Intervals [place] Rate: 68 P: 11 [place]: 153 QRS: 50 QRSD: 92 T: 95 QT: 415 QTc: 444 Interpretive Statements SINUS RHYTHM NONSPECIFIC T-WAVE ABNORMALITY Compared to ECG 04/13/2022 21:40:16 No significant changes Electronically Signed On 04-16-2022 23:17:04 CDT by Maame Montero M.D. [id number]
[2022-04-14 02:00] VITALS: BP 131/78; PULSE 72; RESP 16; O2SAT 100
== END 2022-04-14 02:04 | disposition home or self-care (01) ==
PROVIDERS: Emergency Medicine; Emergency Provider Physician Assistant; PCP Nurse Practitioner Family
DX: N30.01 Acute cystitis with hematuria (principal); R07.9 Chest pain, unspecified; Z87.891 Personal history of nicotine dependence; E10.9 Type 1 diabetes mellitus without complications; I25.2 Old myocardial infarction; I25.10 Atherosclerotic heart disease of native coronary artery without angina pectoris; Z95.5 Presence of coronary angioplasty implant and graft; J44.9 Chronic obstructive pulmonary disease, unspecified; Z87.440 Personal history of urinary (tract) infections; Z79.82 Long term (current) use of aspirin; Z79.02 Long term (current) use of antithrombotics/antiplatelets; Z79.51 Long term (current) use of inhaled steroids
CPT/HCPCS: 71045; 71250; 74176; 80053; 81001; 83690; 83880; 84484; 85025; 93005; 96365; 96375; 96376; 99285; J0696; J2270; J2405; J2765; J7040

== ENCOUNTER 2022-04-15 15:48 | Emergency (ER) | payer BC, MEDICAID, SELFPAY ==
[2022-04-15 16:43] VITALS: BMI 26.2
[2022-04-15 16:49] VITALS: BP 95/76; PULSE 78; RESP 18; TEMP 36.7; O2SAT 100
[2022-04-15 17:05] LABS: Glucose Point of Care 199 mg/dL (70-110)
[2022-04-15] MEDS: haloperidol inj 5 mg/mL INJ 1 mL 2 MG IVP (19:39)
[2022-04-15] MEDS: metoclopramide 5 mg/mL SDV 2 mL 10 MG IVP (19:39)
[2022-04-15] MEDS: ketorolac 30 mg/mL INJ 15 MG IVP (19:39)
[2022-04-15] MEDS: sodium chloride 0.9% 1,000 ML 999 ML IV (19:46)
[2022-04-15 19:49] VITALS: BP 137/90; PULSE 76; RESP 14; O2SAT 98
--- NOTE | 2022-04-15 19:51 | W.ED.GENADLT ---
HPI - General Adult General: Chief complaint: Abdominal Pain Stated complaint: yudy clements Time Seen by Provider: 04/15/22 19:02 History of Present Illness: 36-year-old female presenting today with abdominal pain. Patient with acute on chronic abdominal pain. Seen multiple times in the past for similar. Was here 2 days ago for the same. No definitive etiology was main. She notes nausea with vomiting associated with this. No significant diarrhea. Symptom onset over the last 24 hours. Has not been improving or worsening. She denies dysuria or polyuria. She denies cough or shortness of breath. She denies fevers or chills does have a history of diabetes. Review of Systems General: Reports: 10 or more systems reviewed and unremarkable except in HPI and below PFSH ED PFSH: Medical History Acute hyperglycemia Acute kidney injury superimposed on chronic kidney disease Anemia Anxiety Arnold-Chiari malformation CAD (coronary artery disease) Celiac disease CHF (congestive heart failure), NYHA class III Chronic headache Community acquired pneumonia Complicated UTI (urinary tract infection) COVID-19 Cystitis Diabetic gastroparesis -continue Reglan Diabetic neuropathy associated with type 1 diabetes mellitus DKA (diabetic ketoacidoses) Drug abuse Esophagitis Headache, common migraine, intractable, with status migrainosus History of pancreatitis HTN (hypertension) Hyperlipidemia Long-term insulin use Lymphadenitis Metabolic acidosis Migraine headache Neurogenic bladder Non-alcoholic fatty liver disease Pancreatitis PID (pelvic inflammatory disease) Pleural effusion 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 Pulmonary hypertension Pyelonephritis Recurrent UTI Respiratory failure Sepsis Tobacco dependence Transaminitis Uncontrolled type 1 diabetes mellitus Ureterolithiasis Surgical History History of cholecystectomy History of endoscopy History of lung surgery -s/p LLL lobectomy secondary to cavitary pneumonia (2017) Family History Grandfather Diabetes Other Heart disease Hypertension Social History Smoking and tobacco status: former smoker Second hand smoke exposure: Yes Alcohol intake: never Household members: children Housing: House Marital status: Single Current occupational status: unemployed Female Reproductive History: Date of last menstrual period: 07/24/21 Physical Exam Const: COMMON NORMALS: no acute distress, patient oriented x3 and alert GENERAL APPEARANCE: cooperative ORIENTATION/CONSCIOUSNESS: Yes awake, Yes oriented to person, Yes oriented to place and Yes oriented to time HENMT: COMMON NORMALS: normocephalic, atraumatic, external ears normal, Normal external nose present and moist oral mucous membranes HEAD & SCALP: normal to inspection, normocephalic and atraumatic NOSE: Normal external nose present GENERAL EAR: hearing grossly impaired EXTERNAL EAR: Yes external ears normal Eye: COMMON NORMALS: Equal, round and reactive pupils present, EOMs intact bilaterally, conjunctivae normal and no scleral icterus GENERAL EYE: appearance normal, both eyes and all related structures EYELID: eyelids normal CONJUNCTIVA: Yes conjunctivae normal SCLERA: sclerae normal PUPIL: Yes Equal, round and reactive pupils present Neck/C-Spine: COMMON NORMALS: full ROM, supple and no JVD GENERAL: Yes normal visual inspection Lymph: LYMPHATIC: no lymphadenopathy noted and no lymphedema noted Chest: COMMONS NORMALS: normal inspection of the chest Resp: COMMON NORMALS: normal respiratory effort, No retractions and No use of accessory muscles Cardio: COMMON NORMALS: no JVD, regular rate and regular rhythm RATE: regular rate RHYTHM: regular rhythm GI: COMMON NORMALS: Normal to inspection, nondistended, normoactive bowel sounds present OTHER: Generalized Abdominal Tenderness : COMMON NORMALS: Yes no CVA tenderness BLADDER/KIDNEY EXAM: Yes no CVA tenderness Back/Pelvis: COMMON NORMALS: no CVA tenderness and thoracic and lumbar spine normal to inspection Extremity: COMMON NORMALS: normal to inspection, full ROM and capillary refill normal GENERAL: Yes normal exam except as noted Neuro: COMMON NORMALS: patient oriented x3, CN's II-XII intact bilaterally, moves all extremities, no focal motor deficits, no sensory deficits noted and gait normal SENSORIUM/ORIENTATION: Yes alert, Yes oriented to person, Yes oriented to place and Yes oriented to time Psych: COMMON NORMALS: mental status grossly normal, Normal thought process present, cooperative and normal affect THOUGHT PROCESS: Normal thought process present Skin: COMMON NORMALS: no rashes or lesions noted and no wounds GENERAL SKIN EXAM: no rashes or lesions noted Course Vital Signs: Vital signs: Vital Signs Temperature 98.0 F 04/15/22 16:49 Pulse Rate 83 04/15/22 22:30 Respiratory Rate 17 04/15/22 22:30 Blood Pressure 188/97 04/15/22 22:30 Pulse Oximetry 98 04/15/22 22:30 Oxygen Delivery Me thod 04/15/22 19:49 MDM - General Adult Medical Decision Making 36-year-old female presenting today with abdominal pain. Urinalysis suggestive of UTI. Patient started on ceftriaxone in the ER. Will give Macrobid for home. Given significance of abdominal pain we will proceed with CT abdomen pelvis. CT abdomen pelvis without significant abnormality. Patient was given strict return precautions and recommended routine outpatient follow-up. Lab Data : 04/15/22 19:45 04/15/22 19:45 Radiology Impressions Abdomen/Pelvis CT 04/15/22 20:06 IMPRESSION: 1. Persisting or recurrent gas in the urinary bladder. There is no directly visible fistula although this possibility is not ruled out. This could also be incidental from recent catheterization. 2. Other chronic and incidental findings as described Laboratory Results WBC 7.3 10^3/uL (4.0-10.0) 04/15/22 19:45 RBC 4.51 10^6/uL (4.1-5.3) 04/15/22 19:45 Hgb 12.1 g/dL (11.5-15.3) 04/15/22 19:45 Hct 37.4 % (37.0-47.0) 04/15/22 19:45 MCV 82.9 fl (81-99) 04/15/22 19:45 MCH 26.8 pg (28.0-34.0) L 04/15/22 19:45 MCHC 32.4 g/dL (30.0-36.0) 04/15/22 19:45 RDW 14.6 % (12.1-15.1) 04/15/22 19:45 Plt Count 193 10^3/cmm (130-400) 04/15/22 19:45 MPV 10.9 fL (7.4-10.4) H 04/15/22 19:45 Neut % (Auto) 70.4 % 04/15/22 19:45 Lymph % (Auto) 21.4 % 04/15/22 19:45 Carver % (Auto) 5.7 % 04/15/22 19:45 Eos % (Auto) 1.4 % 04/15/22 19:45 Baso % (Auto) 1.0 % 04/15/22 19:45 Neut # (Auto) 5.15 10^3/uL (1.8-7.7) 04/15/22 19:45 Lymph # (Auto) 1.6 10^3/uL (0.8-4.8) 04/15/22 19:45 Carver # (Auto) 0.4 10^3/uL (0.2-0.9) 04/15/22 19:45 Eos # (Auto) 0.1 10^3/uL (0.0-0.8) 04/15/22 19:45 Baso # (Auto) 0.1 10^3/uL (0.0-0.1) 04/15/22 19:45 Nucleated RBC % (auto) 0 % 04/15/22 19:45 Nucleated RBCs # 0.0 /100WBC 04/15/22 19:45 Sodium 134 mmol/L (136-145) L 04/15/22 19:45 Potassium 4.4 mmol/L (3.5-5.1) 04/15/22 19:45 Chloride 103 mmol/L (98-107) 04/15/22 19:45 Carbon Dioxide 16 mmol/L (22-29) L 04/15/22 19:45 Anion Gap 19.4 (5-19) H 04/15/22 19:45 BUN 36 mg/dL (6-20) H 04/15/22 19:45 Creatinine 1.9 mg/dL (0.5-0.9) H 04/15/22 19:45 GFR Calculation 30.1 mL/min (90-130) L 04/15/22 19:45 Glucose 183 mg/dL (65-115) H 04/15/22 19:45 POC Glucose 199 mg/dL (70-110) H 04/15/22 16:51 Calculated Osmolality 291 mOsm/kg (285-295) 04/15/22 19:45 Calcium 8.9 mg/dL (8.5-10.5) 04/15/22 19:45 Total Bilirubin 0.4 mg/dL (0.15-1.2) 04/15/22 19:45 AST 24 U/L (0-32) 04/15/22 19:45 ALT 45 U/L (0-33) H 04/15/22 19:45 Alkaline Phosphatase 121 U/L (35-105) H 04/15/22 19:45 Total Protein 7.2 g/dL (6.6-8.7) 04/15/22 19:45 Albumin 3.0 g/dL (3.5-5.2) L 04/15/22 19:45 Globulin 4.2 g/dL (1.3-4.6) 04/15/22 19:45 Lipase 14 U/L (13-60) 04/15/22 19:45 HCG, Qual Negative (Negative) 04/15/22 20:05 Urine Color Yellow (Yellow) 04/15/22 20:05 Urine Appearance Hazy (CLEAR) A 04/15/22 20:05 Urine pH 5 (5-7) 04/15/22 20:05 Ur Specific [place] 1.020 (1.005-1.030) 04/15/22 20:05 Urine Protein 3+ (Negative) H 04/15/22 20:05 Urine Glucose (UA) Norm (Normal) 04/15/22 20:05 Urine Ketones 1+ (Negative) H 04/15/22 20:05 Urine Blood 3+ (Negative) H 04/15/22 20:05 Urine Nitrate Negative (Negative) 04/15/22 20:05 Urine Bilirubin Neg (Negative) 04/15/22 20:05 Urine Urobilinogen Neg mg/dL (Negative) 04/15/22 20:05 Ur Leukocyte Esterase 1+ (Negative) H 04/15/22 20:05 Urine RBC 10-15 /hpf (0-2) H 04/15/22 20:05 Urine WBC 55-80 /hpf (0-5) H 04/15/22 20:05 Ur Squamous Epith Cells 5-10 /hpf (0-5) H 04/15/22 20:05 Amorphous Sediment Not Reportable 04/15/22 20:05 Urine Bacteria 3+ /hpf (NONE) H 04/15/22 20:05 Discharge Plan Discharge Patient Disposition: Home Clinical Impression: Abdominal pain, UTI (urinary tract infection) Condition: Stable Prescriptions: New Macrobid 100 mg capsule 100 mg PO BID 5 Days Qty: 10 0RF Rx Instructions: must administer with a meal/food No Action gabapentin 100 mg capsule 100 mg PO TID ergocalciferol (vitamin D2) 1,250 mcg (50,000 unit) capsule 1,250 mcg PO .weekly aspirin [Adult Low Dose Aspirin] 81 mg tablet,delayed release (DR/EC) 81 mg PO DAILY Glucagon (HCl) Emergency Kit 1 mg recon soln 1 mg SUBCUT Q20M PRN (Reason: hypoglycemia) Qty: 3 3RF Rx Instructions: until target blood sugar attained furosemide 20 mg tablet 20 mg PO DAILY@0800 Qty: 90 1RF atorvastatin 40 mg tablet 40 mg PO DAILY Qty: 90 1RF carvedilol 6.25 mg tablet 6.25 mg PO BID Qty: 180 1RF Rx Instructions: must administer with a meal/food hydralazine 25 mg tablet 25 mg PO TID Qty: 270 1RF clopidogrel 75 mg tablet 75 mg PO DAILY Qty: 90 1RF isosorbide mononitrate 10 mg tablet 10 mg PO TID Qty: 270 1RF Rx Instructions: give doses 7 hrs apart Pepto-Bismol 262 mg Tablet 2 tab PO Q1H PRN (Reason: Heartburn) Rx Instructions: do not exceed 16 tabs per 24 hrs tamsulosin 0.4 mg capsule 0.4 mg PO BEDTIME pantoprazole 40 mg tablet,delayed release (DR/EC) 40 mg PO DAILY@12 albuterol sulfate 90 mcg/actuation HFA aerosol inhaler 2 puff inhalation Q8H PRN (Reason: shortness of breath or wheezing) ondansetron 4 mg tablet,disintegrating 4 mg PO Q6H PRN (Reason: nausea and vomiting) Qty: 14 0RF hydrocodone-acetaminophen 5-325 mg tablet 1 tab PO Q6H PRN (Reason: pain) Qty: 14 0RF cephalexin 500 mg capsule 500 mg PO TID 7 Days Qty: 21 0RF ondansetron 4 mg tablet,disintegrating 4 mg PO Q6H PRN (Reason: nausea and vomiting) Qty: 14 0RF ciprofloxacin HCl 500 mg tablet 500 mg PO BID 7 Days Qty: 14 0RF ondansetron 4 mg tablet,disintegrating 4 mg PO Q8H PRN (Reason: nausea and vomiting) Qty: 15 0RF diphenhydramine HCl [Benadryl Allergy] 25 mg Tablet 25 mg PO BEDTIME insulin aspart U-100 [Novolog Flexpen U-100 Insulin] 100 unit/mL (3 mL) Insulin Pen See Rx Instructions .ROUTE .COMPLEX Rx Instructions: SLIDING SCALE subcutaneously TID insulin glargine [Lantus Solostar U-100 Insulin] 100 unit/mL (3 mL) insulin pen 15 unit SUBCUT BID Qty: 15 3RF Discharge Orders: Discharge ED (Routine); Ordered 04/15/22 Ordered By: Juan Fontana Referrals: Elizabeth Dougherty FNP [Primary Care Provider] - Patient Instructions: Urinary Tract Infection in Women (DC), Abdominal Pain (ED), Opioid Safety, Pain Management Coding Level of Care Code ED Catastrophe Claims Supervisor for Chg Fwd Exam Comprehensive
[2022-04-15 19:55] LABS: Basophils # 0.1 10^3/uL (0.0-0.1); Eosinophils # 0.1 10^3/uL (0.0-0.8); Eosinophils % 1.4 %; Hematocrit 37.4 % (37.0-47.0); Hemoglobin 12.1 g/dL (11.5-15.3); Lymphocytes # 1.6 10^3/uL (0.8-4.8); Lymphocytes % 21.4 %; Mean Corpuscular HGB Conc 32.4 g/dL (30.0-36.0); Mean Corpuscular Hemoglobin 26.8 pg (28.0-34.0); Mean Corpuscular Volume 82.9 fl (81-99); Mean Platelet Volume 10.9 fL (7.4-10.4); Monocytes # 0.4 10^3/uL (0.2-0.9); Monocytes % 5.7 %; Neutrophils # 5.15 10^3/uL (1.8-7.7); Neutrophils % 70.4 %; Nucleated Red Blood Cells % 0 %; Platelet Count 193 10^3/cmm (130-400); Red Blood Count 4.51 10^6/uL (4.1-5.3); Red Cell Distribution Width 14.6 % (12.1-15.1); White Blood Count 7.3 10^3/uL (4.0-10.0)
--- NOTE | 2022-04-15 20:06 | CTR_ITS ---
PROCEDURE INFORMATION: Exam: CT Abdomen And Pelvis With Contrast Exam date and time: 04/15/2022 9:52 PM Age: 36 years old Clinical indication: Abdominal pain; Generalized; Prior surgery; Surgery date: 6+ months; Surgery type: Cholecystectomy; Additional info: Generalized abdominal pain TECHNIQUE: Imaging protocol: Computed tomography of the abdomen and pelvis with contrast. Radiation optimization: All CT scans at this facility use at least one of these dose optimization techniques: automated exposure control; mA and/or kV adjustment per patient size (includes targeted exams where dose is matched to clinical indication); or iterative reconstruction. Contrast material: OMNI 350; Contrast volume: 70 ml; Contrast route: INTRAVENOUS (IV); COMPARISON: [place] [id number] 04/13/2022 10:49 PM RADIATION DOSE METRICS: Total DLP (mGy-cm): 363.36 FINDINGS: Lungs: Calcified granuloma in the right lower lobe. Partially visualized lobectomy changes in the left lower chest Liver: Normal. No mass. Gallbladder and bile ducts: The gallbladder is surgically absent. Pancreas: Normal. No ductal dilation. Spleen: Normal. No splenomegaly. Adrenal glands: Normal. No mass. Kidneys and ureters: Chronic scarring in the left lower renal pole. Stomach and bowel: See Urinary bladder finding. Appendix: No evidence of appendicitis. Intraperitoneal space: No free fluid, free air or abscess. Vasculature: Unremarkable. No abdominal aortic aneurysm. Lymph nodes: Several mildly enlarged inguinal lymph nodes are most likely reactive. Urinary bladder: There is moderate gas in the urinary bladder, similar to several recent CTs. A portion of the colon directly abuts the left bladder roof. However no distinctly visible fistula. The urinary bladder wall remains thickened. Reproductive: Unremarkable as visualized. Bones/joints: L5-S1 bilateral chronic pars defects allow for 3 mm of grade 1 subluxation. Soft tissues: Unremarkable. CT/CT abdomen pelvis w con* [id number] IMPRESSION: 1. Persisting or recurrent gas in the urinary bladder. There is no directly visible fistula although this possibility is not ruled out. This could also be incidental from recent catheterization. 2. Other chronic and incidental findings as described
[2022-04-15 20:20] LABS: HCG Qualitative Urine. Negative (Negative)
[2022-04-15 20:30] LABS: Alanine Aminotransferase 45 U/L (0-33); Alkaline Phosphatase 121 U/L (35-105); Chloride 103 mmol/L (98-107); Potassium 4.4 mmol/L (3.5-5.1); Sodium 134 mmol/L (136-145)
[2022-04-15 20:38] LABS: Urine Appearance Hazy (CLEAR); Urine Color Yellow (Yellow)
[2022-04-15 20:39] LABS: Add Urine Microscopic? YES; Bilirubin Urine Neg (Negative); Blood Urine 3+ (Negative); Glucose Urine UA Norm (Normal); Ketones Urine 1+ (Negative); Leukocyte Esterase Urine 1+ (Negative); Nitrate Urine Negative (Negative); Protein Urine 3+ (Negative); Urobilinogen Urine Neg (Negative); pH Urine 5 (5-7)
[2022-04-15 20:40] LABS: Add Urine Culture? Yes; Bacteria Urine 3+ /hpf; WBC Urine 55-80 /hpf (0-5)
[2022-04-15 21:07] LABS: Anion Gap 19.4 (5-19); Aspartate Amino Transferase 24 U/L (0-32); Blood Urea Nitrogen 36 mg/dL (6-20); Calcium 8.9 mg/dL (8.5-10.5); Carbon Dioxide 16 mmol/L (22-29); Globulin 4.2 g/dL (1.3-4.6); Glomerular Filtration Rate 30.1 mL/min (90-130); Glucose 183 mg/dL (65-115); Lipase 14 U/L (13-60); Osmolality Calculated 291 mOsm/kg (285-295); Total Bilirubin 0.4 mg/dL (0.15-1.2); Total Protein 7.2 g/dL (6.6-8.7)
[2022-04-15] MEDS: cefTRIAXone 2,000 MG in sodium chloride 0.9% (plus) 50 ML 100 MG IV (21:28)
[2022-04-15] MEDS: iohexol 350 mg/mL 100 mL Btl IV (21:54)
[2022-04-15 22:00] VITALS: BP 188/97; PULSE 83; RESP 17; O2SAT 98
[2022-04-15 22:30] VITALS: BP 188/97; PULSE 83; RESP 17; O2SAT 98
== END 2022-04-15 22:51 | disposition home or self-care (01) ==
PROVIDERS: Emergency Provider Emergency Medicine; PCP Nurse Practitioner Family
DX: N39.0 Urinary tract infection, site not specified (principal); R10.9 Unspecified abdominal pain; Z79.02 Long term (current) use of antithrombotics/antiplatelets; Z79.82 Long term (current) use of aspirin; Z79.4 Long term (current) use of insulin; Z77.22 Contact with and (suspected) exposure to environmental tobacco smoke (acute) (chronic); I25.10 Atherosclerotic heart disease of native coronary artery without angina pectoris; I11.0 Hypertensive heart disease with heart failure; I50.9 Heart failure, unspecified; E10.40 Type 1 diabetes mellitus with diabetic neuropathy, unspecified; E78.5 Hyperlipidemia, unspecified; Z87.440 Personal history of urinary (tract) infections
CPT/HCPCS: 36416; 74177; 80053; 81001; 81025; 82962; 83690; 85025; 87077; 87086; 87186; 96365; 96375; 99285; J0696; J1630; J1885; J2765; J7030; Q9967

== ENCOUNTER 2022-05-15 13:41 | Emergency (ER) | payer BC, MEDICAID, SELFPAY ==
[2022-05-15 13:46] VITALS: BP 102/69; PULSE 72; RESP 18; TEMP 36.6; O2SAT 99
[2022-05-15 15:47] VITALS: BP 114/84; PULSE 70; RESP 16; O2SAT 98
[2022-05-15 15:56] LABS: Basophils # 0.1 10^3/uL (0.0-0.1); Basophils % 0.7 %; Eosinophils # 0.2 10^3/uL (0.0-0.8); Eosinophils % 2.1 %; Hematocrit 37.8 % (37.0-47.0); Hemoglobin 12.5 g/dL (11.5-15.3); Lymphocytes # 2.1 10^3/uL (0.8-4.8); Lymphocytes % 24.7 %; Mean Corpuscular HGB Conc 33.1 g/dL (30.0-36.0); Mean Corpuscular Hemoglobin 26.7 pg (28.0-34.0); Mean Corpuscular Volume 80.6 fl (81-99); Mean Platelet Volume 9.9 fL (7.4-10.4); Monocytes # 0.5 10^3/uL (0.2-0.9); Monocytes % 6.2 %; Neutrophils # 5.56 10^3/uL (1.8-7.7); Neutrophils % 65.9 %; Nucleated Red Blood Cells % 0 %; Platelet Count 311 10^3/cmm (130-400); Red Blood Count 4.69 10^6/uL (4.1-5.3); Red Cell Distribution Width 15.2 % (12.1-15.1); White Blood Count 8.4 10^3/uL (4.0-10.0)
[2022-05-15 16:17] LABS: Alanine Aminotransferase 194 U/L (0-33); Albumin Level 3.2 g/dL (3.5-5.2); Alkaline Phosphatase 144 U/L (35-105); Anion Gap 13.1 (5-19); Aspartate Amino Transferase 102 U/L (0-32); Blood Urea Nitrogen 29 mg/dL (6-20); Carbon Dioxide 25 mmol/L (22-29); Chloride 104 mmol/L (98-107); Glomerular Filtration Rate 39.5 mL/min (90-130); Glucose 225 mg/dL (65-115); Osmolality Calculated 299 mOsm/kg (285-295); Potassium 4.1 mmol/L (3.5-5.1); Sodium 138 mmol/L (136-145); Total Bilirubin 0.2 mg/dL (0.15-1.2); Total Protein 7.2 g/dL (6.6-8.7)
[2022-05-15 16:22] LABS: Creatinine Clr Calc Pharmacy 39.8032
[2022-05-15 17:41] LABS: Add Urine Microscopic? YES; Bilirubin Urine Neg (Negative); Blood Urine 2+ (Negative); Glucose Urine UA Trace (Normal); Ketones Urine Negative (Negative); Leukocyte Esterase Urine Negative (Negative); Nitrate Urine Negative (Negative); Protein Urine 3+ (Negative); Specific Gravity, Urine 1.015 (1.005-1.030); Urine Appearance Clear (CLEAR); Urine Color Yellow (Yellow); Urobilinogen Urine Norm (Negative); pH Urine 6.5 (5-7)
[2022-05-15 17:48] LABS: Amphetamines Screen Urine Negative (Negative); Barbiturates Screen Urine Negative (Negative); Benzodiazepines Screen Urine Negative (Negative); Cocaine Screen Urine Negative (Negative); Opiate Screen Urine Negative (Negative); PCP Screen Urine Negative (Negative); THC Screen Urine Negative (Negative)
[2022-05-15 18:01] LABS: Add Urine Culture? No; Bacteria Urine TRACE /hpf
[2022-05-15 18:23] LABS: Glucose Point of Care 245 mg/dL (70-110)
--- NOTE | 2022-05-15 18:52 | W.ED.BACK ---
HPI - Back Pain/Injury General: Chief Complaint: Abdominal Pain Stated Complaint: The kidneys are hurting bad Time Seen by Provider: 05/15/22 17:05 History of Present Illness: 36-year-old female presents to the emergency department ambulatory with significant other. Patient is a frail type I diabetic but also suffers from chronic fatigue and other functional impairments including chronic headaches. Patient reports she has atraumatic back pain. She hurts on both sides of her back from down by the SI joints up to her kidneys . She reports her blood sugar has intermittently been high on her meter. She does not feel excessively thirsty. She had 1 episode of diarrhea this morning. She has had some nausea today. Her back pain does not radiate outside of her back. There has been no injury. No fevers, chills, rashes. She denies change in her urine output, painful urination, hematuria, one side of her back hurting more than the other. She believes the cause is her kidneys because she has chronic kidney disease. Patient is not aware that chronic kidney disease typically does not cause painful kidneys. Patient reports she is trying to find a transportation analyst who is in her network for insurance. Associated symptoms: Reports fatigue and nausea; Deny chills, difficulty walking, dysuria, fever(s), syncope or vomiting Review of Systems General: Reports: 10 or more systems reviewed and unremarkable except in HPI and below Const: Reports: fatigue; Denies: fever(s), chills or body aches Eyes: Denies: change in vision ENMT: Denies: throat pain Card: Denies: chest pain, edema or syncope Resp: Denies: dyspnea or productive cough GI: Reports: nausea, diarrhea and other (Sometimes she has abdominal pain. This is not a chief complaint today.); Denies: vomiting : Denies: dysuria or urinary frequency Musc: Reports: back pain; Denies: neck pain, extremity pain, extremity swelling, joint pain, joint swelling or muscle weakness Skin/Breast: Denies: rash or erythema Neuro: Denies: numbness in extremities, weakness in extremities, lack of coordination or difficulty walking [facility] ED PFSH: Medical History Acute hyperglycemia Acute kidney injury superimposed on chronic kidney disease Anemia Anxiety Arnold-Chiari malformation CAD (coronary artery disease) Celiac disease CHF (congestive heart failure), NYHA class III Chronic headache Community acquired pneumonia Complicated UTI (urinary tract infection) COVID-19 Cystitis Diabetic gastroparesis -continue Reglan Diabetic neuropathy associated with type 1 diabetes mellitus DKA (diabetic ketoacidoses) Drug abuse Esophagitis Headache, common migraine, intractable, with status migrainosus History of pancreatitis HTN (hypertension) Hyperlipidemia Long-term insulin use Lymphadenitis Metabolic acidosis Migraine headache Neurogenic bladder Non-alcoholic fatty liver disease Pancreatitis PID (pelvic inflammatory disease) Pleural effusion 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 Pulmonary hypertension Pyelonephritis Recurrent UTI Respiratory failure Sepsis Tobacco dependence Transaminitis Uncontrolled type 1 diabetes mellitus Ureterolithiasis Surgical History History of cholecystectomy History of endoscopy History of lung surgery -s/p LLL lobectomy secondary to cavitary pneumonia (2017) Family History Grandfather Diabetes Other Heart disease Hypertension Social History Smoking and tobacco status: former smoker Second hand smoke exposure: Yes Alcohol intake: never Household members: children Housing: House Marital status: Single Current occupational status: unemployed Female Reproductive History: Date of last menstrual period: 07/24/21 Physical Exam Const: COMMON NORMALS: no limitations, alert and well nourished EXAM LIMITATIONS: no altered mental status GENERAL APPEARANCE: cooperative and well developed ORIENTATION/CONSCIOUSNESS: Yes awake; not confused HENMT: COMMON NORMALS: normocephalic, atraumatic, external ears normal and Normal external nose present HEAD & SCALP: normal to inspection, normocephalic and atraumatic FACE & SINUS: face symmetric NOSE: Normal external nose present EXTERNAL EAR: Yes external ears normal MOUTH: lip normal; no muffled voice Eye: COMMON NORMALS: EOMs intact bilaterally and conjunctivae normal GENERAL EYE: appearance normal, both eyes and all related structures CONJUNCTIVA: Yes conjunctivae normal Neck/C-Spine: GENERAL: Yes normal visual inspection and Yes trachea midline Resp: COMMON NORMALS: normal respiratory effort and No use of accessory muscles EFFORT & INSPECTION: Yes able to speak in complete sentences and Yes symmetric chest movement Cardio: COMMON NORMALS: regular rate and regular rhythm RATE: regular rate RHYTHM: regular rhythm PERIPHERAL PULSES: radial pulses present GI: COMMON NORMALS: Soft to palpation INSPECTION: Yes normal to inspection PALPATION: Yes Soft to palpation, No Tenderness to palpation present (GI) and No Guarding due to palpation present (GI) Back/Pelvis: OTHER: Very light touch anywhere on the back left or right causes her to wince and guard. Of note palpation of the paraspinal muscles causes more pain then percussion through the costovertebral angles. Straight leg raise is negative. No focal midline tenderness. No rashes or wounds. No swelling or deformities. Extremity: COMMON NORMALS: normal to inspection GENERAL: Yes normal exam except as noted Neuro: COMMON NORMALS: moves all extremities, no focal motor deficits and no sensory deficits noted SENSORIUM/ORIENTATION: Yes alert Psych: COMMON NORMALS: mental status grossly normal, Normal thought process present, cooperative and speech normal APPEARANCE: Yes grossly normal ATTITUDE: Yes Guarded attititude/behavior present SPEECH: Yes normal speech MOOD & AFFECT: Yes depressed mood THOUGHT PROCESS: Normal thought process present ATTENTION/CONCENTRATION: Yes attention grossly intact Skin: NARRATIVE SKIN EXAM: Patient noted to have multiple scars about her arms bilaterally. They appear to have been caused by needlesticks. Course Vital Signs: Vital signs: Vital Signs Temperature 97.8 F 05/15/22 13:46 Pulse Rate 70 05/15/22 15:47 Respiratory Rate 16 05/15/22 15:47 Blood Pressure 114/84 05/15/22 15:47 Pulse Oximetry 98 05/15/22 15:47 MDM - Back Pain/Injury Medical Decision Making The patient appears to have myofascial back pain on examination. It is not worse on one side or in one area but is pretty diffuse through the lumbar and lower thoracic region. I have a low suspicion that this is actually her kidney but because of her type 1 diabetes and history I went ahead and ran lab work. She continues to have proteinuria and microscopic hematuria. She continues to have an abnormal creatinine and GFR. These things are unchanged. Her white blood cell count is normal. She is not in diabetic ketoacidosis. She continues to have transaminitis. Her drug screen is negative. I do not think that she has a spinal epidural abscess or other emergent etiology for her back pain. The patient was given a dose of [place] and will be discharged on Flexeril, Tylenol. I think that her mental health may also be affecting her back causing myofascial pain and tension. Labs 11/22/22 15:42 05/15/22 15:42 Laboratory Results WBC 8.4 10^3/uL (4.0-10.0) 05/15/22 15:42 RBC 4.69 10^6/uL (4.1-5.3) 05/15/22 15:42 Hgb 12.5 g/dL (11.5-15.3) 05/15/22 15:42 Hct 37.8 % (37.0-47.0) 05/15/22 15:42 MCV 80.6 fl (81-99) L 05/15/22 15:42 MCH 26.7 pg (28.0-34.0) L 05/15/22 15:42 MCHC 33.1 g/dL (30.0-36.0) 05/15/22 15:42 RDW 15.2 % (12.1-15.1) H 05/15/22 15:42 Plt Count 311 10^3/cmm (130-400) 05/15/22 15:42 MPV 9.9 fL (7.4-10.4) 05/15/22 15:42 Neut % (Auto) 65.9 % 05/15/22 15:42 Lymph % (Auto) 24.7 % 05/15/22 15:42 [place] % (Auto) 6.2 % 05/15/22 15:42 Eos % (Auto) 2.1 % 05/15/22 15:42 Baso % (Auto) 0.7 % 05/15/22 15:42 Neut # (Auto) 5.56 10^3/uL (1.8-7.7) 05/15/22 15:42 Lymph # (Auto) 2.1 10^3/uL (0.8-4.8) 05/15/22 15:42 [place] # (Auto) 0.5 10^3/uL (0.2-0.9) 05/15/22 15:42 Eos # (Auto) 0.2 10^3/uL (0.0-0.8) 05/15/22 15:42 Baso # (Auto) 0.1 10^3/uL (0.0-0.1) 05/15/22 15:42 Nucleated RBC % (auto) 0 % 05/15/22 15:42 Nucleated RBCs # 0.0 /100WBC 05/15/22 15:42 Sodium 138 mmol/L (136-145) 05/15/22 15:42 Potassium 4.1 mmol/L (3.5-5.1) 05/15/22 15:42 Chloride 104 mmol/L (98-107) 05/15/22 15:42 Carbon Dioxide 25 mmol/L (22-29) 05/15/22 15:42 Anion Gap 13.1 (5-19) 05/15/22 15:42 BUN 29 mg/dL (6-20) H 05/15/22 15:42 Creatinine 1.5 mg/dL (0.5-0.9) H 05/15/22 15:42 GFR Calculation 39.5 mL/min (90-130) L 05/15/22 15:42 Glucose 225 mg/dL (65-115) H 05/15/22 15:42 POC Glucose 245 mg/dL (70-110) H 05/15/22 18:19 Calculated Osmolality 299 mOsm/kg (285-295) H 05/15/22 15:42 Calcium 9.0 mg/dL (8.5-10.5) 05/15/22 15:42 Total Bilirubin 0.2 mg/dL (0.15-1.2) 05/15/22 15:42 AST 102 U/L (0-32) H 05/15/22 15:42 ALT 194 U/L (0-33) H 05/15/22 15:42 Alkaline Phosphatase 144 U/L (35-105) H 05/15/22 15:42 Total Protein 7.2 g/dL (6.6-8.7) 05/15/22 15:42 Albumin 3.2 g/dL (3.5-5.2) L 05/15/22 15:42 Globulin 4.0 g/dL (1.3-4.6) 05/15/22 15:42 Urine Color Yellow (Yellow) 05/15/22 17:27 Urine Appearance Clear (CLEAR) 05/15/22 17:27 Urine pH 6.5 (5-7) 05/15/22 17: Ur Specific [place] 1.015 (1.005-1.030) 05/15/22 17:27 Urine Protein 3+ (Negative) H 05/15/22 17:27 Urine Glucose (UA) Trace (Normal) H 05/15/22 17:27 Urine Ketones Negative (Negative) 05/15/22 17: Urine Blood 2+ (Negative) H 05/15/22 17:27 Urine Nitrate Negative (Negative) 05/15/22 17:27 Urine Bilirubin Neg (Negative) 05/15/22 17: Urine Urobilinogen Norm mg/dL (Negative) 05/15/22 17: Ur Leukocyte Esterase Negative (Negative) 05/15/22 17:27 Urine RBC None /hpf (0-2) 05/15/22 17: Urine WBC None /hpf (0-5) 05/15/22 17: Ur Squamous Epith Cells 5-10 /hpf (0-5) H 05/15/22 17: Amorphous Sediment Not Reportable 05/15/22 17:27 Urine Bacteria Trace /hpf (NONE) 05/15/22 17:27 Urine Opiates Screen Negative ng/mL (Negative) 05/15/22 17:27 Ur Barbiturates Screen Negative ng/mL (Negative) 05/15/22 17:27 Ur Phencyclidine Scrn Negative ng/mL (Negative) 05/15/22 17:27 Ur Amphetamines Screen Negative ng/mL (Negative) 05/15/22 17:27 U Benzodiazepines Scrn Negative ng/mL (Negative) 05/15/22 17:27 Urine Cocaine Screen Negative ng/mL (Negative) 05/15/22 17: U Marijuana (THC) Screen Negative ng/mL (Negative) 05/15/22 17:27 Discharge Plan Discharge Patient Disposition: Home Clinical Impression: Myofascial low back pain, CKD (chronic kidney disease), Proteinuria with type 1 diabetes mellitus Condition: Stable Prescriptions: New cyclobenzaprine 10 mg tablet 10 mg PO BID PRN (Reason: muscle spasm) Qty: 10 0RF Percogesic Extra Strength 12.5-500 mg tablet 1 tab PO Q6H PRN (Reason: pain) 5 Days Qty: 20 0RF No Action gabapentin 100 mg capsule 100 mg PO TID ergocalciferol (vitamin D2) 1,250 mcg (50,000 unit) capsule 1,250 mcg PO .weekly aspirin [Adult Low Dose Aspirin] 81 mg tablet,delayed release (DR/EC) 81 mg PO DAILY Glucagon (HCl) Emergency Kit 1 mg recon soln 1 mg SUBCUT Q20M PRN (Reason: hypoglycemia) Qty: 3 3RF Rx Instructions: until target blood sugar attained furosemide 20 mg tablet 20 mg PO DAILY@0800 Qty: 90 1RF atorvastatin 40 mg tablet 40 mg PO DAILY Qty: 90 1RF carvedilol 6.25 mg tablet 6.25 mg PO BID Qty: 180 1RF Rx Instructions: must administer with a meal/food hydralazine 25 mg tablet 25 mg PO TID Qty: 270 1RF clopidogrel 75 mg tablet 75 mg PO DAILY Qty: 90 1RF isosorbide mononitrate 10 mg tablet 10 mg PO TID Qty: 270 1RF Rx Instructions: give doses 7 hrs apart Pepto-Bismol 262 mg Tablet 2 tab PO Q1H PRN (Reason: Heartburn) Rx Instructions: do not exceed 16 tabs per 24 hrs tamsulosin 0.4 mg capsule 0.4 mg PO BEDTIME pantoprazole 40 mg tablet,delayed release (DR/EC) 40 mg PO DAILY@12 albuterol sulfate 90 mcg/actuation HFA aerosol inhaler 2 puff inhalation Q8H PRN (Reason: shortness of breath or wheezing) ondansetron 4 mg tablet,disintegrating 4 mg PO Q6H PRN (Reason: nausea and vomiting) Qty: 14 0RF hydrocodone-acetaminophen 5-325 mg tablet 1 tab PO Q6H PRN (Reason: pain) Qty: 14 0RF ondansetron 4 mg tablet,disintegrating 4 mg PO Q6H PRN (Reason: nausea and vomiting) Qty: 14 0RF ondansetron 4 mg tablet,disintegrating 4 mg PO Q8H PRN (Reason: nausea and vomiting) Qty: 15 0RF diphenhydramine HCl [Benadryl Allergy] 25 mg Tablet 25 mg PO BEDTIME insulin aspart U-100 [Novolog Flexpen U-100 Insulin] 100 unit/mL (3 mL) Insulin Pen See Rx Instructions .ROUTE .COMPLEX Rx Instructions: SLIDING SCALE subcutaneously TID insulin glargine [Lantus Solostar U-100 Insulin] 100 unit/mL (3 mL) insulin pen 15 unit SUBCUT BID Qty: 15 3RF Discharge Orders: Discharge ED (Routine); Ordered 11/22/22 Ordered By: Santino Rosales Referrals: Elizabeth Dougherty FNP [Primary Care Provider] - 1 week (Follow-up back pain) Discharge Activity: Increase activity as tolerated Patient Instructions: Chronic Kidney Disease (ED), Chronic Kidney Disease Diet (DC), Acute Low Back Pain (ED), Opioid Safety, Pain Management Activity Restrictions/Additional Instructions: Your back pain appears to be myofascial rather than due to your kidneys. However, you have ongoing chronic kidney disease and protein in your urine--this is not normal and is a sign of ongoing kidney damage. Please see a transportation analyst and get excellent control of your diabetes! Please read all discharge instructions and abide by recommendations and return precautions. Make an appointment to follow-up with your primary care doctor in 5-7 days for follow-up. Return to ER if getting worse or other emergent symptoms. Coding Level of Care Code ED Patcher Wood Welder for Reji Chandler
[2022-05-15] MEDS: HYDROcodone-acetaminophen 10-325 mg Tablet 1 TAB PO (19:07)
[2022-05-15] MEDS: sodium chloride 0.9% 1,000 ML 999 ML IV (19:10)
[2022-05-15 20:04] VITALS: PULSE 71; RESP 16; O2SAT 97
[2022-05-15 20:22] LABS: HCG Qualitative Urine. Negative (Negative)
--- NOTE | 2022-05-16 11:24 | DCPLANNER ---
Addendum entered by Arlette Mendiola 05/21/22 09:37: problem manager received notification from [facility] that patient cannot be seen by them due to her insurance and that a referral had already been sent by patients pcp. problem manager called [place], [facility] and was told that the physicians office is currently working on referral for patient to Dr. Johnson. Addendum entered by Arlette Mendiola 05/16/22 13:50: problem manager faxed patients information to [facility] phone number is [phone] the fax number is [phone]. Clinic will review patients information and will call patient with appointment information. Addendum entered by Arlette Mendiola 05/16/22 13:01: Patient returned case loader operator phone call. Patient asked case coordinator to send the referral to [facility]. problem manager faxed patients information to [facility]. Original Note: problem manager had message to refer patient to marketing operations assistant, case coordinator called phone number [phone], patients mother. problem manager left a message for patient to return case loader operator phone call.
== END 2022-05-15 20:05 | disposition home or self-care (01) ==
PROVIDERS: Nurse Practitioner Family; Emergency Provider Emergency Medicine; PCP Nurse Practitioner Family
DX: M79.18 Myalgia, other site (principal); E10.22 Type 1 diabetes mellitus with diabetic chronic kidney disease; I13.0 Hypertensive heart and chronic kidney disease with heart failure and stage 1 through stage 4 chronic kidney disease, or unspecified chronic kidney disease; N18.9 Chronic kidney disease, unspecified; I50.9 Heart failure, unspecified; R80.9 Proteinuria, unspecified; Z79.02 Long term (current) use of antithrombotics/antiplatelets; Z79.82 Long term (current) use of aspirin; Z79.4 Long term (current) use of insulin; Z87.891 Personal history of nicotine dependence; I25.10 Atherosclerotic heart disease of native coronary artery without angina pectoris; E78.5 Hyperlipidemia, unspecified
CPT/HCPCS: 36416; 80053; 80306; 81001; 81025; 82962; 85025; 96360; 99284; J7030

== ENCOUNTER 2022-05-18 16:24 | Emergency (ER) | payer BC, MEDICAID, SELFPAY ==
[2022-05-18 16:42] LABS: Glucose Point of Care 171 mg/dL (70-110)
[2022-05-18 16:44] VITALS: BP 94/66; PULSE 63; RESP 16; TEMP 36.6; O2SAT 98; BMI 23.2
--- NOTE | 2022-05-18 16:55 | ED_ITS ---
HPI - General Adult General: Chief complaint: General Medical Stated complaint: hypoglycemia Time Seen by Provider: 05/18/22 16:26 Source: patient Mode of arrival: ambulatory History of Present Illness: 36-year-old female presents to the emergency room feeling weak drowsy and lethargic. Family had given her orange juice assuming it was low glucose on arrival here blood glucose is 71 she is more awake and alert she does not recall everything that happened prior to coming in she take all of her regular medicines does not think she ate normally. She denies any fever sweats chills abdominal pain or chest pain. Onset (ago): minute(s) Severity: moderate Relieving factors: eating Exacerbating factors: none Associated symptoms: Reports confusion, decreased appetite, malaise, nausea and weakness; Deny chest pain, cough, diaphoresis, dyspnea, fevers/chills, headache(s), rash, palpitations, seizures, short of breath, syncope or vomiting Treatments prior to arrival: other ([place] juice) Review of Systems Const: Reports: fatigue and malaise; Denies: fever(s), chills or diaphoresis ENMT: Denies: throat pain, ear or mastoid pain, nasal discharge or nasal congestion Card: Denies: chest pain, palpitations or syncope Resp: Denies: dyspnea GI: Reports: nausea; Denies: abdominal pain or vomiting : Denies: flank pain, difficulty voiding, dysuria, urinary frequency or urinary urgency Skin/Breast: Denies: rash Neuro: Reports: confusion; Denies: headache(s) PFS ED PFSH: Medical History Acute hyperglycemia Acute kidney injury superimposed on chronic kidney disease Anemia Anxiety Arnold-Chiari malformation CAD (coronary artery disease) Celiac disease CHF (congestive heart failure), NYHA class III Chronic headache Community acquired pneumonia Complicated UTI (urinary tract infection) COVID-19 Cystitis Diabetic gastroparesis -continue Reglan Diabetic neuropathy associated with type 1 diabetes mellitus DKA (diabetic ketoacidoses) Drug abuse Esophagitis Headache, common migraine, intractable, with status migrainosus History of pancreatitis HTN (hypertension) Hyperlipidemia Long-term insulin use Lymphadenitis Metabolic acidosis Migraine headache Neurogenic bladder Non-alcoholic fatty liver disease Pancreatitis PID (pelvic inflammatory disease) Pleural effusion 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 Pulmonary hypertension Pyelonephritis Recurrent UTI Respiratory failure Sepsis Tobacco dependence Transaminitis Uncontrolled type 1 diabetes mellitus Ureterolithiasis Surgical History History of cholecystectomy History of endoscopy History of lung surgery -s/p LLL lobectomy secondary to cavitary pneumonia (2017) Family History Grandfather Diabetes Other Heart disease Hypertension Social History Smoking and tobacco status: former smoker Second hand smoke exposure: Yes Alcohol intake: never Household members: children Housing: House Marital status: Single Current occupational status: unemployed Female Reproductive History: Date of last menstrual period: 07/24/21 Physical Exam Const: COMMON NORMALS: no acute distress GENERAL APPEARANCE: cooperative and comfortable ORIENTATION/CONSCIOUSNESS: Yes awake, Yes oriented to person, Yes oriented to place and Yes oriented to time HENMT: COMMON NORMALS: normocephalic, atraumatic, hearing grossly normal bilaterally, external ears normal, EAC's normal, TM's normal bilaterally, Normal nasal mucous membranes and turbinates present, moist oral mucous membranes and oropharynx normal HEAD & SCALP: normocephalic and atraumatic NOSE: Normal nasal mucous membranes and turbinates present EXTERNAL EAR: Yes external ears normal EXTERNAL AUDITORY CANAL: EAC's normal TYMPANIC MEMBRANE: TM's normal bilaterally Eye: COMMON NORMALS: Equal, round and reactive pupils present, EOMs intact bilaterally, conjunctivae normal and no scleral icterus CONJUNCTIVA: Yes conjunctivae normal PUPIL: Yes Equal, round and reactive pupils present Neck/C-Spine: COMMON NORMALS: full ROM, no lymphadenopathy, supple and no JVD Lymph: LYMPHATIC: no lymphadenopathy noted and no lymphedema noted Resp: COMMON NORMALS: normal respiratory effort, No retractions, No use of accessory muscles and clear to auscultation bilaterally AUSCULTATION: clear to auscultation bilaterally Cardio: COMMON NORMALS: no JVD, regular rate, regular rhythm and No murmurs present (Cardio) RATE: regular rate RHYTHM: regular rhythm GI: COMMON NORMALS: Soft to palpation and No hepatosplenomegaly present AUSCULTATION: Yes normoactive bowel sounds PALPATION: Yes Soft to palpation, No Tenderness to palpation present (GI), No Guarding due to palpation present (GI) and Yes No hepatosplenomegaly present Extremity: COMMON NORMALS: normal to inspection, capillary refill normal, no clubbing, cyanosis or edema, no calf tenderness and no pedal edema Neuro: SENSORIUM/ORIENTATION: Yes oriented to person, Yes oriented to place and Yes oriented to time Skin: COMMON NORMALS: no rashes or lesions noted GENERAL SKIN EXAM: no rashes or lesions noted Course Vital Signs: Vital signs: Vital Signs Temperature 97.8 F 05/18/22 16:44 Pulse Rate 63 05/18/22 19:43 Respiratory Rate 16 05/18/22 19:43 Blood Pressure 185/100 05/18/22 19:43 Pulse Oximetry 99 05/18/22 19:43 Oxygen Delivery Me thod 05/18/22 17:35 MDM - General Adult Medical Decision Making Patient's blood glucose remained stable she was monitored for time she is able to eat and drink without difficulty she will be discharged home follow-up with her primary care monitor blood sugars closely. Medical Records I reviewed the patient's medical records. Lab Data I reviewed the patient's lab results. 05/18/22 16:55 05/18/22 17:20 Laboratory Results WBC 7.5 10^3/uL (4.0-10.0) 05/18/22 16:55 RBC 4.98 10^6/uL (4.1-5.3) 05/18/22 16:55 Hgb 13.3 g/dL (11.5-15.3) 05/18/22 16:55 Hct 40.2 % (37.0-47.0) 05/18/22 16:55 MCV 80.7 fl (81-99) L 05/18/22 16:55 MCH 26.7 pg (28.0-34.0) L 05/18/22 16:55 MCHC 33.1 g/dL (30.0-36.0) 05/18/22 16:55 RDW 15.1 % (12.1-15.1) 05/18/22 16:55 Plt Count 252 10^3/cmm (130-400) 05/18/22 16:55 MPV 9.6 fL (7.4-10.4) 05/18/22 16:55 Neut % (Auto) 70.4 % 05/18/22 16:55 Lymph % (Auto) 21.4 % 05/18/22 16:55 [place] % (Auto) 5.6 % 05/18/22 16:55 Eos % (Auto) 2.0 % 05/18/22 16:55 Baso % (Auto) 0.5 % 05/18/22 16:55 Neut # (Auto) 5.26 10^3/uL (1.8-7.7) 05/18/22 16:55 Lymph # (Auto) 1.6 10^3/uL (0.8-4.8) 05/18/22 16:55 [place] # (Auto) 0.4 10^3/uL (0.2-0.9) 05/18/22 16:55 Eos # (Auto) 0.2 10^3/uL (0.0-0.8) 05/18/22 16:55 Baso # (Auto) 0.0 10^3/uL (0.0-0.1) 05/18/22 16:55 Nucleated RBC % (auto) 0 % 05/18/22 16:55 Nucleated RBCs # 0.0 /100WBC 05/18/22 16:55 Sodium 140 mmol/L (136-145) 05/18/22 17:20 Potassium 3.8 mmol/L (3.5-5.1) 05/18/22 17:20 Chloride 104 mmol/L (98-107) 05/18/22 17:20 Carbon Dioxide 26 mmol/L (22-29) 05/18/22 17:20 Anion Gap 13.8 (5-19) 05/18/22 17:20 BUN 31 mg/dL (6-20) H 05/18/22 17:20 Creatinine 1.4 mg/dL (0.5-0.9) H 05/18/22 17:20 GFR Calculation 42.8 mL/min (90-130) L 05/18/22 17:20 Glucose 133 mg/dL (65-115) H 05/18/22 17:20 POC Glucose 171 mg/dL (70-110) H 05/18/22 16:38 Calculated Osmolality 298 mOsm/kg (285-295) H 05/18/22 17:20 Calcium 9.1 mg/dL (8.5-10.5) 05/18/22 17:20 Total Bilirubin 0.2 mg/dL (0.15-1.2) 05/18/22 17:20 AST 60 U/L (0-32) H 05/18/22 17:20 ALT 138 U/L (0-33) H 05/18/22 17:20 Alkaline Phosphatase 145 U/L (35-105) H 05/18/22 17:20 Total Protein 7.2 g/dL (6.6-8.7) 05/18/22 17:20 Albumin 3.3 g/dL (3.5-5.2) L 05/18/22 17:20 Globulin 3.9 g/dL (1.3-4.6) 05/18/22 17:20 Lipase 22 U/L (13-60) 05/18/22 17:20 Urine Color Yellow (Yellow) 05/18/22 18:05 Urine Appearance Clear (CLEAR) 05/18/22 18:05 Urine pH 7 (5-7) 05/18/22 18:05 Ur Specific [place] 1.010 (1.005-1.030) 05/18/22 18:05 Urine Protein 3+ (Negative) H 05/18/22 18:05 Urine Glucose (UA) Norm (Normal) 05/18/22 18:05 Urine Ketones Negative (Negative) 05/18/22 18:05 Urine Blood 2+ (Negative) H 05/18/22 18:05 Urine Nitrate Negative (Negative) 05/18/22 18:05 Urine Bilirubin Neg (Negative) 05/18/22 18:05 Urine Urobilinogen Norm mg/dL (Negative) 05/18/22 18:05 Ur Leukocyte Esterase Negative (Negative) 05/18/22 18:05 Urine RBC 0-4 /hpf (0-2) H 05/18/22 18:05 Urine WBC 0-4 /hpf (0-5) H 05/18/22 18:05 Ur Squamous Epith Cells 0-4 /hpf (0-5) H 05/18/22 18:05 Amorphous Sediment Not Reportable 05/18/22 18:05 Urine Bacteria 1+ /hpf (NONE) H 05/18/22 18:05 Discharge Plan Discharge Patient Disposition: Home Clinical Impression: Hypoglycemia Condition: Stable Prescriptions: No Action gabapentin 100 mg capsule 100 mg PO TID ergocalciferol (vitamin D2) 1,250 mcg (50,000 unit) capsule 1,250 mcg PO .weekly aspirin [Adult Low Dose Aspirin] 81 mg tablet,delayed release (DR/EC) 81 mg PO DAILY Glucagon (HCl) Emergency Kit 1 mg recon soln 1 mg SUBCUT Q20M PRN (Reason: hypoglycemia) Qty: 3 3RF Rx Instructions: until target blood sugar attained furosemide 20 mg tablet 20 mg PO DAILY@0800 Qty: 90 1RF atorvastatin 40 mg tablet 40 mg PO DAILY Qty: 90 1RF carvedilol 6.25 mg tablet 6.25 mg PO BID Qty: 180 1RF Rx Instructions: must administer with a meal/food hydralazine 25 mg tablet 25 mg PO TID Qty: 270 1RF clopidogrel 75 mg tablet 75 mg PO DAILY Qty: 90 1RF isosorbide mononitrate 10 mg tablet 10 mg PO TID Qty: 270 1RF Rx Instructions: give doses 7 hrs apart Pepto-Bismol 262 mg Tablet 2 tab PO Q1H PRN (Reason: Heartburn) Rx Instructions: do not exceed 16 tabs per 24 hrs tamsulosin 0.4 mg capsule 0.4 mg PO BEDTIME pantoprazole 40 mg tablet,delayed release (DR/EC) 40 mg PO DAILY@12 albuterol sulfate 90 mcg/actuation HFA aerosol inhaler 2 puff inhalation Q8H PRN (Reason: shortness of breath or wheezing) ondansetron 4 mg tablet,disintegrating 4 mg PO Q6H PRN (Reason: nausea and vomiting) Qty: 14 0RF hydrocodone-acetaminophen 5-325 mg tablet 1 tab PO Q6H PRN (Reason: pain) Qty: 14 0RF ondansetron 4 mg tablet,disintegrating 4 mg PO Q6H PRN (Reason: nausea and vomiting) Qty: 14 0RF ondansetron 4 mg tablet,disintegrating 4 mg PO Q8H PRN (Reason: nausea and vomiting) Qty: 15 0RF cyclobenzaprine 10 mg tablet 10 mg PO BID PRN (Reason: muscle spasm) Qty: 10 0RF diphenhydramine HCl [Benadryl Allergy] 25 mg Tablet 25 mg PO BEDTIME insulin aspart U-100 [Novolog Flexpen U-100 Insulin] 100 unit/mL (3 mL) Insulin Pen See Rx Instructions .ROUTE .COMPLEX Rx Instructions: SLIDING SCALE subcutaneously TID insulin glargine [Lantus Solostar U-100 Insulin] 100 unit/mL (3 mL) insulin pen 15 unit SUBCUT BID Qty: 15 3RF Discharge Orders: Discharge ED (Routine); Ordered 05/18/22 Ordered By: Shravan Jones Referrals: Elizabeth Dougherty FNP [Primary Care Provider] - Patient Instructions: Opioid Safety, Pain Management Activity Restrictions/Additional Instructions: You were seen for hypoglycemia it is resolved monitor your blood sugars closely at home continue other medications as previously prescribed. Coding Level of Care Code ED Pediatric Nurse Practitioner for Reji Chandler
--- NOTE | 2022-05-18 16:56 | ECG_ITS ---
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 Measurements Intervals [place] Rate: 58 P: 54 [place]: 168 QRS: 37 QRSD: 98 T: 79 QT: 452 QTc: 447 Interpretive Statements SINUS BRADYCARDIA POSSIBLE LEFT ATRIAL ENLARGEMENT [-0.1mV P-WAVE IN V1/V2] NONSPECIFIC T-WAVE ABNORMALITY Compared to ECG 04/14/2022 01:38:12 Sinus rhythm no longer present T-wave abnormality still present Electronically Signed On 05-19-2022 11:01:19 REGISTERED CLIENT ASSOCIATE by Riccardo Burch M.D. [id number]
[2022-05-18 17:34] LABS: Basophils % 0.5 %; Eosinophils # 0.2 10^3/uL (0.0-0.8); Hematocrit 40.2 % (37.0-47.0); Hemoglobin 13.3 g/dL (11.5-15.3); Lymphocytes # 1.6 10^3/uL (0.8-4.8); Lymphocytes % 21.4 %; Mean Corpuscular HGB Conc 33.1 g/dL (30.0-36.0); Mean Corpuscular Hemoglobin 26.7 pg (28.0-34.0); Mean Corpuscular Volume 80.7 fl (81-99); Mean Platelet Volume 9.6 fL (7.4-10.4); Monocytes # 0.4 10^3/uL (0.2-0.9); Monocytes % 5.6 %; Neutrophils # 5.26 10^3/uL (1.8-7.7); Neutrophils % 70.4 %; Nucleated Red Blood Cells % 0 %; Platelet Count 252 10^3/cmm (130-400); Red Blood Count 4.98 10^6/uL (4.1-5.3); Red Cell Distribution Width 15.1 % (12.1-15.1); White Blood Count 7.5 10^3/uL (4.0-10.0)
[2022-05-18] MEDS: sodium chloride 0.9% 1,000 ML 999 ML IV (17:34)
[2022-05-18] MEDS: ondansetron 2 mg/ML SDV 2 mL 4 MG IVP (17:34)
[2022-05-18 17:35] VITALS: BP 127/87; PULSE 60; RESP 16; O2SAT 100
[2022-05-18 17:51] LABS: Alanine Aminotransferase 138 U/L (0-33); Albumin Level 3.3 g/dL (3.5-5.2); Alkaline Phosphatase 145 U/L (35-105); Anion Gap 13.8 (5-19); Aspartate Amino Transferase 60 U/L (0-32); Blood Urea Nitrogen 31 mg/dL (6-20); Calcium 9.1 mg/dL (8.5-10.5); Carbon Dioxide 26 mmol/L (22-29); Chloride 104 mmol/L (98-107); Globulin 3.9 g/dL (1.3-4.6); Glomerular Filtration Rate 42.8 mL/min (90-130); Glucose 133 mg/dL (65-115); Lipase 22 U/L (13-60); Osmolality Calculated 298 mOsm/kg (285-295); Potassium 3.8 mmol/L (3.5-5.1); Sodium 140 mmol/L (136-145); Total Bilirubin 0.2 mg/dL (0.15-1.2); Total Protein 7.2 g/dL (6.6-8.7)
[2022-05-18 18:00] VITALS: BP 152/89; PULSE 62; RESP 16; O2SAT 99
[2022-05-18 18:29] LABS: Add Urine Microscopic? YES; Bilirubin Urine Neg (Negative); Blood Urine 2+ (Negative); Glucose Urine UA Norm (Normal); Ketones Urine Negative (Negative); Leukocyte Esterase Urine Negative (Negative); Nitrate Urine Negative (Negative); Protein Urine 3+ (Negative); Urine Appearance Clear (CLEAR); Urine Color Yellow (Yellow); Urobilinogen Urine Norm (Negative); pH Urine 7 (5-7)
[2022-05-18 18:32] LABS: Add Urine Culture? No; Bacteria Urine 1+ /hpf; RBC Urine 0-4 /hpf (0-2); Squamous Epithelial Cell Urine 0-4 /hpf (0-5); WBC Urine 0-4 /hpf (0-5)
[2022-05-18 19:00] VITALS: BP 185/106; PULSE 71; RESP 16; O2SAT 99
[2022-05-18 19:43] VITALS: BP 185/100; PULSE 63; RESP 16; O2SAT 99
== END 2022-05-18 21:40 | disposition home or self-care (01) ==
PROVIDERS: Emergency Provider Family Medicine; PCP Nurse Practitioner Family
DX: E11.649 Type 2 diabetes mellitus with hypoglycemia without coma (principal)
CPT/HCPCS: 36416; 80053; 81001; 82962; 83690; 85025; 93005; 96374; 99284; J2405; J7030

== ENCOUNTER 2022-05-20 00:14 | Emergency (ER) | payer BC, MEDICAID, SELFPAY ==
--- NOTE | 2022-05-20 00:29 | ECG_ITS ---
[facility] Test Date: 2022-05-20 Pat Name: Donita Aguilar Department: Room: Gender: Female Test Carrier: : 1985 Requested By: Ronny Ayala Order Number: [id number] Faviola MD: Gilberto Eugene M.D. Measurements Intervals [place] Rate: 82 P: 11 [place]: 131 QRS: 26 QRSD: 93 T: 64 QT: 387 QTc: 453 Interpretive Statements SINUS RHYTHM NONSPECIFIC ST & T-WAVE ABNORMALITY Compared to ECG 05/18/2022 17:16:36 Sinus bradycardia no longer present T-wave abnormality still present Electronically Signed On 05-21-2022 13:44:12 RESOURCE SPECIALIST TEACHER by Gilberto Eugene M.D. [id number]
[2022-05-20 00:41] VITALS: BP 133/93; PULSE 82; RESP 14; TEMP 36.7; O2SAT 98; BMI 23.2
[2022-05-20 00:46] LABS: Basophils # 0.1 10^3/uL (0.0-0.1); Basophils % 0.6 %; Eosinophils # 0.2 10^3/uL (0.0-0.8); Eosinophils % 1.9 %; Hematocrit 36.4 % (37.0-47.0); Hemoglobin 12.3 g/dL (11.5-15.3); Lymphocytes # 2.5 10^3/uL (0.8-4.8); Mean Corpuscular HGB Conc 33.8 g/dL (30.0-36.0); Mean Platelet Volume 9.9 fL (7.4-10.4); Monocytes # 0.6 10^3/uL (0.2-0.9); Monocytes % 6.1 %; Neutrophils # 6.16 10^3/uL (1.8-7.7); Neutrophils % 65.2 %; Nucleated Red Blood Cells % 0 %; Platelet Count 272 10^3/cmm (130-400); Red Blood Count 4.55 10^6/uL (4.1-5.3); Red Cell Distribution Width 15.1 % (12.1-15.1); White Blood Count 9.5 10^3/uL (4.0-10.0)
[2022-05-20 00:48] VITALS: RESP 18; O2SAT 99
[2022-05-20] MEDS: ondansetron 2 mg/ML SDV 2 mL 4 MG IVP (00:48)
[2022-05-20] MEDS: morphine 4 mg/mL SDV 1 mL IVP (00:48)
--- NOTE | 2022-05-20 00:48 | ED_ITS ---
HPI - Chest Pain General: Chief Complaint: Chest Pain Stated Complaint: chest pain Time Seen by Provider: 05/20/22 00:15 Source: patient Mode of arrival: ambulatory Limitations: no limitations History of Present Illness: 36-year-old female is very well-known to the ER. She is actually seen here yesterday for hyperglycemia states when she got home last night started having chest pain she she has had constant chest pain since then her pain is sharp in nature she rates it a 8 out of 10 she denies any worsening proving factors she denies any shortness of breath denies any cough or fever. Associated symptoms: Deny abdominal pain, dyspnea, fever(s), nausea or vomiting Review of Systems Const: Denies: fever(s), chills, body aches or change in appetite Eyes: Denies: blurry vision or eye discomfort ENMT: Denies: throat pain or dental pain Card: Reports: chest pain Resp: Denies: dyspnea GI: Denies: abdominal pain, nausea, vomiting or diarrhea : Denies: dysuria Musc: Denies: neck pain or back pain Skin/Breast: Denies: rash Neuro: Denies: headache(s) Psych: Denies: depression Ramiro/Lymph: Denies: easy bruising All/Imm: Denies: urticaria PFSH ED PFSH: Medical History Acute hyperglycemia Acute kidney injury superimposed on chronic kidney disease Anemia Anxiety Arnold-Chiari malformation CAD (coronary artery disease) Celiac disease CHF (congestive heart failure), NYHA class III Chronic headache Community acquired pneumonia Complicated UTI (urinary tract infection) COVID-19 Cystitis Diabetic gastroparesis -continue Reglan Diabetic neuropathy associated with type 1 diabetes mellitus DKA (diabetic ketoacidoses) Drug abuse Esophagitis Headache, common migraine, intractable, with status migrainosus History of pancreatitis HTN (hypertension) Hyperlipidemia Long-term insulin use Lymphadenitis Metabolic acidosis Migraine headache Neurogenic bladder Non-alcoholic fatty liver disease Pancreatitis PID (pelvic inflammatory disease) Pleural effusion 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 Pulmonary hypertension Pyelonephritis Recurrent UTI Respiratory failure Sepsis Tobacco dependence Transaminitis Uncontrolled type 1 diabetes mellitus Ureterolithiasis Surgical History History of cholecystectomy History of endoscopy History of lung surgery -s/p LLL lobectomy secondary to cavitary pneumonia (2017) Family History Grandfather Diabetes Other Heart disease Hypertension Social History Smoking and tobacco status: former smoker Second hand smoke exposure: Yes Alcohol intake: never Household members: children Housing: House Marital status: Single Current occupational status: unemployed Female Reproductive History: Date of last menstrual period: 07/24/21 Physical Exam Const: COMMON NORMALS: no acute distress, patient oriented x3 and healthy appearing HENMT: COMMON NORMALS: normocephalic and atraumatic HEAD & SCALP: normocephalic and atraumatic Eye: COMMON NORMALS: Equal, round and reactive pupils present and EOMs intact bilaterally PUPIL: Yes Equal, round and reactive pupils present Neck/C-Spine: COMMON NORMALS: full ROM and supple Chest: COMMONS NORMALS: normal inspection of the chest and normal palpation of entire chest wall Resp: COMMON NORMALS: normal respiratory effort, No retractions, No use of accessory muscles and clear to auscultation bilaterally AUSCULTATION: clear to auscultation bilaterally Cardio: COMMON NORMALS: regular rate, regular rhythm and No murmurs present (Cardio) RATE: regular rate RHYTHM: regular rhythm GI: COMMON NORMALS: Normal to inspection, nondistended, normoactive bowel s ounds present, Soft to palpation, non-tender and no masses PALPATION: Yes Soft to palpation Extremity: COMMON NORMALS: normal to inspection and full ROM Neuro: COMMON NORMALS: patient oriented x3, moves all extremities and no focal motor deficits Psych: COMMON NORMALS: mental status grossly normal, Normal thought process present and cooperative THOUGHT PROCESS: Normal thought process present Skin: COMMON NORMALS: no rashes or lesions noted and no wounds GENERAL SKIN EXAM: no rashes or lesions noted Course Vital Signs: Vital signs: Vital Signs Temperature 98.0 F 05/20/22 00:41 Pulse Rate 82 05/20/22 00:41 Respiratory Rate 18 05/20/22 00:48 Blood Pressure 133/93 05/20/22 00:41 Pulse Oximetry 99 05/20/22 00:48 Oxygen Delivery Me thod 05/20/22 00:41 MDM - Chest Pain Medical Decision Making Patient presents with chest pains atypical in nature repeat troponin is normal she has no signs of acute coronary syndrome no signs of pulmonary embolism she is stable for discharge she is to follow-up with PCP and return if worsening. Lab Data 05/20/22 00:38 05/20/22 00:38 Laboratory Results WBC 9.5 10^3/uL (4.0-10.0) 05/20/22 00:38 RBC 4.55 10^6/uL (4.1-5.3) 05/20/22 00:38 Hgb 12.3 g/dL (11.5-15.3) 05/20/22 00:38 Hct 36.4 % (37.0-47.0) L 05/20/22 00:38 MCV 80.0 fl (81-99) L 05/20/22 00:38 MCH 27.0 pg (28.0-34.0) L 05/20/22 00:38 MCHC 33.8 g/dL (30.0-36.0) 05/20/22 00:38 RDW 15.1 % (12.1-15.1) 05/20/22 00:38 Plt Count 272 10^3/cmm (130-400) 05/20/22 00:38 MPV 9.9 fL (7.4-10.4) 05/20/22 00:38 Neut % (Auto) 65.2 % 05/20/22 00:38 Lymph % (Auto) 26.0 % 05/20/22 00:38 [place] % (Auto) 6.1 % 05/20/22 00:38 Eos % (Auto) 1.9 % 05/20/22 00:38 Baso % (Auto) 0.6 % 05/20/22 00:38 Neut # (Auto) 6.16 10^3/uL (1.8-7.7) 05/20/22 00:38 Lymph # (Auto) 2.5 10^3/uL (0.8-4.8) 05/20/22 00:38 [place] # (Auto) 0.6 10^3/uL (0.2-0.9) 05/20/22 00:38 Eos # (Auto) 0.2 10^3/uL (0.0-0.8) 05/20/22 00:38 Baso # (Auto) 0.1 10^3/uL (0.0-0.1) 05/20/22 00:38 Nucleated RBC % (auto) 0 % 05/20/22 00:38 Nucleated RBCs # 0.0 /100WBC 05/20/22 00:38 Sodium 131 mmol/L (136-145) L 05/20/22 00:38 Potassium 3.7 mmol/L (3.5-5.1) 05/20/22 00:38 Chloride 98 mmol/L (98-107) 05/20/22 00:38 Carbon Dioxide 23 mmol/L (22-29) 05/20/22 00:38 Anion Gap 13.7 (5-19) 05/20/22 00:38 BUN 30 mg/dL (6-20) H 05/20/22 00:38 Creatinine 1.7 mg/dL (0.5-0.9) H 05/20/22 00:38 GFR Calculation 34.2 mL/min (90-130) L 05/20/22 00:38 Glucose 258 mg/dL (65-115) H 05/20/22 00:38 Calculated Osmolality 287 mOsm/kg (285-295) 05/20/22 00:38 Calcium 8.8 mg/dL (8.5-10.5) 05/20/22 00:38 Total Bilirubin 0.2 mg/dL (0.15-1.2) 05/20/22 00:38 AST 37 U/L (0-32) H 05/20/22 00:38 ALT 98 U/L (0-33) H 05/20/22 00:38 Alkaline Phosphatase 132 U/L (35-105) H 05/20/22 00:38 Troponin T Baseline 106 ng/L (0-10) H* 05/20/22 00:38 Troponin T 120 Minute 101.9 ng/L (0-10) H 05/20/22 02:54 Delta Troponin T -4.1 ABS# (0-10) L 05/20/22 02:54 Total Protein 6.6 g/dL (6.6-8.7) 05/20/22 00:38 Albumin 3.0 g/dL (3.5-5.2) L 05/20/22 00:38 Globulin 3.6 g/dL (1.3-4.6) 05/20/22 00:38 EKG Data EKG 1: I personally reviewed and interpreted this EKG as follows: EKG interpretation date: 05/20/22 EKG interpretation time: 00:29 Interpretation: nsr hr [address] or t wave abnormalities qrs 93 qtc 425 Discharge Plan Discharge Patient Disposition: Home Clinical Impression: Chest pain Condition: Stable Prescriptions: No Action gabapentin 100 mg capsule 100 mg PO TID ergocalciferol (vitamin D2) 1,250 mcg (50,000 unit) capsule 1,250 mcg PO .weekly aspirin [Adult Low Dose Aspirin] 81 mg tablet,delayed release (DR/EC) 81 mg PO DAILY Glucagon (HCl) Emergency Kit 1 mg recon soln 1 mg SUBCUT Q20M PRN (Reason: hypoglycemia) Qty: 3 3RF Rx Instructions: until target blood sugar attained furosemide 20 mg tablet 20 mg PO DAILY@0800 Qty: 90 1RF atorvastatin 40 mg tablet 40 mg PO DAILY Qty: 90 1RF carvedilol 6.25 mg tablet 6.25 mg PO BID Qty: 180 1RF Rx Instructions: must administer with a meal/food hydralazine 25 mg tablet 25 mg PO TID Qty: 270 1RF clopidogrel 75 mg tablet 75 mg PO DAILY Qty: 90 1RF isosorbide mononitrate 10 mg tablet 10 mg PO TID Qty: 270 1RF Rx Instructions: give doses 7 hrs apart Pepto-Bismol 262 mg Tablet 2 tab PO Q1H PRN (Reason: Heartburn) Rx Instructions: do not exceed 16 tabs per 24 hrs tamsulosin 0.4 mg capsule 0.4 mg PO BEDTIME pantoprazole 40 mg tablet,delayed release (DR/EC) 40 mg PO DAILY@12 albuterol sulfate 90 mcg/actuation HFA aerosol inhaler 2 puff inhalation Q8H PRN (Reason: shortness of breath or wheezing) ondansetron 4 mg tablet,disintegrating 4 mg PO Q6H PRN (Reason: nausea and vomiting) Qty: 14 0RF hydrocodone-acetaminophen 5-325 mg tablet 1 tab PO Q6H PRN (Reason: pain) Qty: 14 0RF ondansetron 4 mg tablet,disintegrating 4 mg PO Q6H PRN (Reason: nausea and vomiting) Qty: 14 0RF ondansetron 4 mg tablet,disintegrating 4 mg PO Q8H PRN (Reason: nausea and vomiting) Qty: 15 0RF cyclobenzaprine 10 mg tablet 10 mg PO BID PRN (Reason: muscle spasm) Qty: 10 0RF diphenhydramine HCl [Benadryl Allergy] 25 mg Tablet 25 mg PO BEDTIME insulin aspart U-100 [Novolog Flexpen U-100 Insulin] 100 unit/mL (3 mL) Insulin Pen See Rx Instructions .ROUTE .COMPLEX Rx Instructions: SLIDING SCALE subcutaneously TID insulin glargine [Lantus Solostar U-100 Insulin] 100 unit/mL (3 mL) insulin pen 15 unit SUBCUT BID Qty: 15 3RF Discharge Orders: Discharge ED (Routine); Ordered 05/20/22 Ordered By: Ronny Ayala Referrals: Elizabeth Dougherty FNP [Primary Care Provider] - Discharge Diet: Advance as tolerated Discharge Activity: Resume usual activity Patient Instructions: Chest Pain (ED) Coding Level of Care Code ED Marketing Designer for Chg Fwd Exam Comprehensive
[2022-05-20 01:05] LABS: Alanine Aminotransferase 98 U/L (0-33); Alkaline Phosphatase 132 U/L (35-105); Aspartate Amino Transferase 37 U/L (0-32); Blood Urea Nitrogen 30 mg/dL (6-20); Calcium 8.8 mg/dL (8.5-10.5); Carbon Dioxide 23 mmol/L (22-29); Chloride 98 mmol/L (98-107); Globulin 3.6 g/dL (1.3-4.6); Glomerular Filtration Rate 34.2 mL/min (90-130); Glucose 258 mg/dL (65-115); Osmolality Calculated 287 mOsm/kg (285-295); Sodium 131 mmol/L (136-145); Total Bilirubin 0.2 mg/dL (0.15-1.2); Total Protein 6.6 g/dL (6.6-8.7)
[2022-05-20 01:07] LABS: Anion Gap 13.7 (5-19); Potassium 3.7 mmol/L (3.5-5.1)
[2022-05-20 01:08] LABS: Troponin(5th) Baseline 106 ng/L (0-10)
--- NOTE | 2022-05-20 02:24 | XRR_ITS ---
PROCEDURE INFORMATION: Exam: XR Chest Exam date and time: 05/20/2022 3:30 AM Age: 36 years old Clinical indication: Pain; Chest pressure; Prior surgery; Additional info: Cp TECHNIQUE: Imaging protocol: Radiologic exam of the chest. Views: 1 view. COMPARISON: CT chest abdpel [id number] 04/13/2022 10:49 PM FINDINGS: Lungs: Unremarkable. No consolidation. Pleural spaces: Unremarkable. No pleural effusion. No pneumothorax. Heart/Mediastinum: Unremarkable. No cardiomegaly. Bones/joints: Unremarkable. XR/XR chest 1V portable [id number] IMPRESSION: No acute findings.
[2022-05-20] MEDS: diphenhydrAMINE 50 mg/mL SDV 1mL IVP (02:53)
[2022-05-20] MEDS: metoclopramide 5 mg/mL SDV 2 mL 10 MG IVP (02:53)
[2022-05-20 03:33] LABS: Troponin 5 2HR Delta -4.1 ABS# (0-10)
[2022-05-20 03:34] LABS: Troponin 5 2HR 101.9 ng/L (0-10)
[2022-05-20 03:49] VITALS: BP 104/72; PULSE 72; RESP 16; O2SAT 96
== END 2022-05-20 03:45 | disposition home or self-care (01) ==
PROVIDERS: Emergency Provider Emergency Medicine; PCP Nurse Practitioner Family
DX: R07.9 Chest pain, unspecified (principal); I25.10 Atherosclerotic heart disease of native coronary artery without angina pectoris; Z79.82 Long term (current) use of aspirin; Z79.02 Long term (current) use of antithrombotics/antiplatelets; Z79.4 Long term (current) use of insulin; I11.0 Hypertensive heart disease with heart failure; I50.9 Heart failure, unspecified; E10.9 Type 1 diabetes mellitus without complications; E78.5 Hyperlipidemia, unspecified; Z87.891 Personal history of nicotine dependence
CPT/HCPCS: 71045; 80053; 84484; 85025; 93005; 96374; 96375; 99285; J1200; J2270; J2405; J2765

== ENCOUNTER 2022-05-24 10:24 | Outpatient (RCR) | payer BC, MEDICAID, SELFPAY | END 2022-06-23 23:59 | disposition home or self-care (01) | LOC: CR 10:24 | PROVIDERS: PCP Nurse Practitioner Family; Referring Provider Internal Medicine Cardiovascular Disease; Visit Provider Internal Medicine Cardiovascular Disease | DX: Z95.5 Presence of coronary angioplasty implant and graft (principal) | CPT/HCPCS: 93798 ==

== ENCOUNTER 2022-05-30 10:39 | Emergency (ER) | payer BC, MEDICAID, SELFPAY ==
[2022-05-30 11:01] LABS: Glucose Point of Care 103 mg/dL (70-110)
[2022-05-30 11:57] VITALS: BP 64/43; PULSE 68; TEMP 36.5; O2SAT 99; BMI 23.8
--- NOTE | 2022-05-30 12:10 | W.ED.GENADLT ---
HPI - General Adult General: Chief complaint: General Medical Stated complaint: low BG Time Seen by Provider: 05/30/22 12:07 Source: patient Mode of arrival: ambulatory History of Present Illness: 36-year-old female presents emergency room hypotensive. Symptoms began about hour ago. She reports her blood sugars thought to be low and she was hypotensive she had gone to the endocrine doctor they stated her blood sugar there was 111 she got nauseous and threw up 1 time. On arrival here her blood sugar is 103. Initial blood pressure was 64 systolic she still nauseous. She denies any chest or abdominal pain no recent fever sweats chills cough no dysuria urgency or frequency Onset (ago): hour(s) Severity: moderate Relieving factors: none Exacerbating factors: none Associated symptoms: Deny chest pain, confusion, cough, diaphoresis, decreased appetite, dyspnea, fevers/chills, headache(s), malaise, nausea, rash, palpitations, seizures, short of breath, syncope, vomiting or weakness Review of Systems Const: Denies: fever(s), chills, fatigue, malaise or diaphoresis ENMT: Denies: throat pain, ear or mastoid pain, nasal discharge or nasal congestion Card: Denies: chest pain, palpitations or syncope Resp: Denies: dyspnea GI: Denies: abdominal pain, nausea or vomiting : Denies: flank pain, difficulty voiding, dysuria, urinary frequency or urinary urgency Skin/Breast: Denies: rash Neuro: Denies: headache(s) or confusion PFSH ED PFSH: Medical History Acute hyperglycemia Acute kidney injury superimposed on chronic kidney disease Anemia Anxiety Arnold-Chiari malformation CAD (coronary artery disease) Celiac disease CHF (congestive heart failure), NYHA class III Chronic headache Community acquired pneumonia Complicated UTI (urinary tract infection) COVID-19 Cystitis Diabetic gastroparesis -continue Reglan Diabetic neuropathy associated with type 1 diabetes mellitus DKA (diabetic ketoacidoses) Drug abuse Esophagitis Headache, common migraine, intractable, with status migrainosus History of pancreatitis HTN (hypertension) Hyperlipidemia Long-term insulin use Lymphadenitis Metabolic acidosis Migraine headache Neurogenic bladder Non-alcoholic fatty liver disease Pancreatitis PID (pelvic inflammatory disease) Pleural effusion 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 Pulmonary hypertension Pyelonephritis Recurrent UTI Respiratory failure Sepsis Tobacco dependence Transaminitis Uncontrolled type 1 diabetes mellitus Ureterolithiasis Surgical History History of cholecystectomy History of endoscopy History of lung surgery -s/p LLL lobectomy secondary to cavitary pneumonia (2017) Family History Grandfather Diabetes Other Heart disease Hypertension Social History Smoking and tobacco status: former smoker Second hand smoke exposure: Yes Alcohol intake: never Household members: children Housing: House Marital status: Single Current occupational status: unemployed Female Reproductive History: Date of last menstrual period: 07/24/21 Physical Exam Const: GENERAL APPEARANCE: cooperative and comfortable HENMT: COMMON NORMALS: normocephalic, atraumatic and hearing grossly normal bilaterally HEAD & SCALP: normocephalic and atraumatic Resp: COMMON NORMALS: normal respiratory effort, No retractions, No use of accessory muscles and clear to auscultation bilaterally AUSCULTATION: clear to auscultation bilaterally Cardio: COMMON NORMALS: regular rate, regular rhythm and No murmurs present (Cardio) RATE: regular rate RHYTHM: regular rhythm GI: COMMON NORMALS: Soft to palpation and No hepatosplenomegaly present AUSCULTATION: Yes normoactive bowel sounds PALPATION: Yes Soft to palpation, No Tenderness to palpation present (GI), No Guarding due to palpation present (GI) and Yes No hepatosplenomegaly present Extremity: COMMON NORMALS: normal to inspection, capillary refill normal, no clubbing, cyanosis or edema, no calf tenderness and no pedal edema Skin: COMMON NORMALS: no rashes or lesions noted GENERAL SKIN EXAM: no rashes or lesions noted Course Vital Signs: Vital signs: Vital Signs Temperature 97.7 F 05/30/22 11:57 Pulse Rate 72 05/30/22 16:46 Blood Pressure 160/95 05/30/22 16:46 Pulse Oximetry 97 05/30/22 16:46 Oxygen Delivery Me thod 05/30/22 15:30 MDM - General Adult Medical Decision Making Glucose monitor for time remained stable patient be discharged home encouraged to monitor blood sugars closely at home and recheck if she has any worsening problems. Medical Records I reviewed the patient's medical records. Lab Data I reviewed the patient's lab results. 05/30/22 13:20 05/30/22 13:20 Laboratory Results WBC 9.7 10^3/uL (4.0-10.0) 05/30/22 13:20 RBC 4.32 10^6/uL (4.1-5.3) 05/30/22 13:20 Hgb 11.7 g/dL (11.5-15.3) 05/30/22 13:20 Hct 34.4 % (37.0-47.0) L 05/30/22 13:20 MCV 79.6 fl (81-99) L 05/30/22 13:20 MCH 27.1 pg (28.0-34.0) L 05/30/22 13:20 MCHC 34.0 g/dL (30.0-36.0) 05/30/22 13:20 RDW 14.0 % (12.1-15.1) 05/30/22 13:20 Plt Count 232 10^3/cmm (130-400) 05/30/22 13:20 MPV 10.7 fL (7.4-10.4) H 05/30/22 13:20 Neut % (Auto) 64.0 % 05/30/22 13:20 Lymph % (Auto) 27.2 % 05/30/22 13:20 [place] % (Auto) 5.8 % 05/30/22 13:20 Eos % (Auto) 1.9 % 05/30/22 13:20 Baso % (Auto) 0.6 % 05/30/22 13:20 Neut # (Auto) 6.21 10^3/uL (1.8-7.7) 05/30/22 13:20 Lymph # (Auto) 2.6 10^3/uL (0.8-4.8) 05/30/22 13:20 [place] # (Auto) 0.6 10^3/uL (0.2-0.9) 05/30/22 13:20 Eos # (Auto) 0.2 10^3/uL (0.0-0.8) 05/30/22 13:20 Baso # (Auto) 0.1 10^3/uL (0.0-0.1) 05/30/22 13:20 Nucleated RBC % (auto) 0 % 05/30/22 13:20 Nucleated RBCs # 0.0 /100WBC 05/30/22 13:20 Specimen Type Arterial 05/30/22 13:42 Sample Site Radial, left 05/30/22 13:42 ABG pH 7.44 (7.35-7.45) 05/30/22 13:42 ABG pCO2 43.6 mmHg (35-45) 05/30/22 13:42 ABG pO2 48.9 mmHg (80.0-100.0) L 05/30/22 13:42 ABG HCO3 29.5 mmol/L (22-26) H 05/30/22 13:42 ABG O2 Saturation 89.2 05/30/22 13:42 ABG Base Excess 4.7 mmol/L (-2.0-2.0) H 05/30/22 13:42 Braulio Test Pos 05/30/22 13:42 A-a O2 Gradient 6.3 mmHg (5-10) 05/30/22 13:42 Hematocrit 36.6 % (37-47) L 05/30/22 13:42 Hgb O2 Saturation 86.7 % (95-100) L 05/30/22 13:42 Carboxyhemoglobin 1.8 %THgb (0.4-20.1) 05/30/22 13:42 Methemoglobin 1.0 % (0.4-1.5) 05/30/22 13:42 Total Hemoglobin 11.9 g/dL (12-16) L 05/30/22 13:42 Sodium 136.0 mmol/L (131-143) 05/30/22 13:42 Potassium 4.0 mmol/L (3.5-5.0) 05/30/22 13:42 Glucose 134.0 mg/dL (70-115) H 05/30/22 13:42 Ionized Calcium 1.3 mmol/L (1.1-1.4) 05/30/22 13:42 O2 Delivery Device Room air 05/30/22 13:42 FiO2 21.0 % 05/30/22 13:42 User Interface Artist ID Cak 05/30/22 13:42 Sodium 135 mmol/L (136-145) L 05/30/22 13:20 Potassium 4.4 mmol/L (3.5-5.1) 05/30/22 13:20 Chloride 99 mmol/L (98-107) 05/30/22 13:20 Carbon Dioxide 28 mmol/L (22-29) 05/30/22 13:20 Anion Gap 12.4 (5-19) 05/30/22 13:20 BUN 38 mg/dL (6-20) H 05/30/22 13:20 Creatinine 1.8 mg/dL (0.5-0.9) H 05/30/22 13:20 GFR Calculation 32.0 mL/min (90-130) L 05/30/22 13:20 Glucose 122 mg/dL (65-115) H 05/30/22 13:20 POC Glucose 152 mg/dL (70-110) H 05/30/22 12:59 Calculated Osmolality 290 mOsm/kg (285-295) 05/30/22 13:20 Calcium 9.6 mg/dL (8.5-10.5) 05/30/22 13:20 Total Bilirubin 0.2 mg/dL (0.15-1.2) 05/30/22 13:20 AST 17 U/L (0-32) 05/30/22 13:20 ALT 19 U/L (0-33) 05/30/22 13:20 Alkaline Phosphatase 100 U/L (35-105) 05/30/22 13:20 Total Protein 6.7 g/dL (6.6-8.7) 05/30/22 13:20 Albumin 3.0 g/dL (3.5-5.2) L 05/30/22 13:20 Globulin 3.7 g/dL (1.3-4.6) 05/30/22 13:20 Serum Ketones Negative (Negative) 05/30/22 13:20 Discharge Plan Discharge Patient Disposition: Home Clinical Impression: Uncontrolled type 1 diabetes mellitus Condition: Stable Prescriptions: New ondansetron 4 mg tablet,disintegrating 4 mg PO Q6H PRN (Reason: nausea and vomiting) Qty: 20 0RF Discontinued ondansetron 4 mg tablet,disintegrating 4 mg PO Q8H PRN (Reason: nausea and vomiting) Qty: 15 0RF No Action ergocalciferol (vitamin D2) 1,250 mcg (50,000 unit) capsule 1,250 mcg PO .weekly aspirin [Adult Low Dose Aspirin] 81 mg tablet,delayed release (DR/EC) 81 mg PO DAILY atorvastatin 40 mg tablet 40 mg PO DAILY Qty: 90 1RF carvedilol 6.25 mg tablet 6.25 mg PO BID Qty: 180 1RF Rx Instructions: must administer with a meal/food hydralazine 25 mg tablet 25 mg PO TID Qty: 270 1RF clopidogrel 75 mg tablet 75 mg PO DAILY Qty: 90 1RF isosorbide mononitrate 10 mg tablet 10 mg PO TID Qty: 270 1RF Rx Instructions: give doses 7 hrs apart Pepto-Bismol 262 mg Tablet 2 tab PO Q1H PRN (Reason: Heartburn) Rx Instructions: do not exceed 16 tabs per 24 hrs pantoprazole 40 mg tablet,delayed release (DR/EC) 40 mg PO DAILY@12 albuterol sulfate 90 mcg/actuation HFA aerosol inhaler 2 puff inhalation Q8H PRN (Reason: shortness of breath or wheezing) cyclobenzaprine 10 mg tablet 10 mg PO BID PRN (Reason: muscle spasm) Qty: 10 0RF furosemide 20 mg tablet 20 mg PO DAILY@0800 diphenhydramine HCl [Benadryl Allergy] 25 mg Tablet 25 mg PO BEDTIME PRN (Reason: Allergy Symptoms) Novolog Flexpen U-100 Insulin 100 unit/mL (3 mL) Insulin Pen See Rx Instructions .ROUTE .COMPLEX Qty: 1 3RF Rx Instructions: SLIDING SCALE subcutaneously TID Lantus Solostar U-100 Insulin 100 unit/mL (3 mL) insulin pen 15 unit SUBCUT BID Qty: 15 3RF oxycodone 5 mg tablet 5 mg PO Q6H PRN (Reason: pain) Qty: 4 0RF Discharge Orders: Discharge ED (Routine); Ordered 05/30/22 Ordered By: Shravan Jones Referrals: Elizabeth Dougherty FNP [Primary Care Provider] - Patient Instructions: Opioid Safety, Pain Management Activity Restrictions/Additional Instructions: You were seen today for feeling of generalized weakness and low blood sugars. You are given IV fluids in the emergency room your blood sugars remain stable without support. Laboratory test did not show any significant abnormalities. Discharge home continue on your same medications and follow-up with primary care doctor as needed. You were given his prescription for orally disintegrating tablets of his ondansetron for nausea or vomiting. Coding Level of Care Code ED Medical Orderly for Reji Fwtanner Exam Detailed
--- NOTE | 2022-05-30 12:47 | ECG_ITS ---
[facility] Test Date: 2022-05-30 Pat Name: Donita Aguilar Department: Room: Gender: Female [employer]: : 1985 Requested By: Shravan Nick Order Number: [id number] Faviola MD: Travis Gallegos M.D. Measurements Intervals [place] Rate: 68 P: 38 [place]: 165 QRS: 32 QRSD: 92 T: 47 QT: 417 QTc: 444 Interpretive Statements SINUS RHYTHM NONSPECIFIC T-WAVE ABNORMALITY Compared to ECG 05/20/2022 00:29:38 No significant changes Electronically Signed On 05-30-2022 16:16:53 SLUNK SKIN CURER by Travis Gallegos M.D. [email or web address]
[2022-05-30 13:02] LABS: Glucose Point of Care 152 mg/dL (70-110)
[2022-05-30 13:26] LABS: Basophils # 0.1 10^3/uL (0.0-0.1); Basophils % 0.6 %; Eosinophils # 0.2 10^3/uL (0.0-0.8); Eosinophils % 1.9 %; Hematocrit 34.4 % (37.0-47.0); Hemoglobin 11.7 g/dL (11.5-15.3); Lymphocytes # 2.6 10^3/uL (0.8-4.8); Lymphocytes % 27.2 %; Mean Corpuscular Hemoglobin 27.1 pg (28.0-34.0); Mean Corpuscular Volume 79.6 fl (81-99); Mean Platelet Volume 10.7 fL (7.4-10.4); Monocytes # 0.6 10^3/uL (0.2-0.9); Monocytes % 5.8 %; Neutrophils # 6.21 10^3/uL (1.8-7.7); Nucleated Red Blood Cells % 0 %; Platelet Count 232 10^3/cmm (130-400); Red Blood Count 4.32 10^6/uL (4.1-5.3); White Blood Count 9.7 10^3/uL (4.0-10.0)
[2022-05-30 13:36] LABS: Ketone (Acetest) Serum Negative (Negative)
[2022-05-30 13:46] LABS: Alanine Aminotransferase 19 U/L (0-33); Alkaline Phosphatase 100 U/L (35-105); Blood Urea Nitrogen 38 mg/dL (6-20); Calcium 9.6 mg/dL (8.5-10.5); Carbon Dioxide 28 mmol/L (22-29); Chloride 99 mmol/L (98-107); Creatinine Clr Calc Pharmacy 34.0439; Globulin 3.7 g/dL (1.3-4.6); Glucose 122 mg/dL (65-115); Osmolality Calculated 290 mOsm/kg (285-295); Sodium 135 mmol/L (136-145); Total Bilirubin 0.2 mg/dL (0.15-1.2); Total Protein 6.7 g/dL (6.6-8.7)
[2022-05-30 13:47] LABS: Anion Gap 12.4 (5-19); Aspartate Amino Transferase 17 U/L (0-32); Potassium 4.4 mmol/L (3.5-5.1)
[2022-05-30 13:53] LABS: ABG PCO2 43.6 mmHg (35-45); ABG PH Result 7.44 (7.35-7.45); Alveolar-Arterial Oxygen Gradi 6.3 mmHg (5-10); Arterial Blood Gas Hematocrit 36.6 % (37-47); Base Excess ABG 4.7 mmol/L (-2.0-2.0); Blood Gas Allen Test Pos; Blood Gas Operator Identificat CAK; Blood Gas Sample Site Radial, left; Blood Gas Sample Type Arterial; Carboxyhemoglobin 1.8 %THgb (0.4-20.1); HCO3 ABG 29.5 mmol/L (22-26); HGB O2 Sat 86.7 % (95-100); Ionized Calcium Level - ABG 1.3 mmol/L (1.1-1.4); Oxygen Device ROOM AIR; Oxygen Saturation ABG 89.2; PO2 ABG 48.9 mmHg (80.0-100.0); Total Hemoglobin 11.9 g/dL (12-16)
[2022-05-30] MEDS: sodium chloride 0.9% 1,000 ML 999 ML IV ×2 (14:13→15:02)
[2022-05-30] MEDS: ondansetron 2 mg/ML SDV 2 mL 4 MG IVP (14:13)
[2022-05-30 14:16] VITALS: BP 163/91; O2SAT 99
[2022-05-30 15:00] VITALS: BP 156/97; PULSE 69; O2SAT 99
[2022-05-30] MEDS: ketorolac 30 mg/mL INJ IVP (15:02)
[2022-05-30 15:30] VITALS: BP 137/87; PULSE 73; O2SAT 98
[2022-05-30 16:46] VITALS: BP 160/95; PULSE 72; O2SAT 97
== END 2022-05-30 16:45 | disposition home or self-care (01) ==
PROVIDERS: Emergency Provider Family Medicine; PCP Nurse Practitioner Family
DX: E10.22 Type 1 diabetes mellitus with diabetic chronic kidney disease (principal); I13.0 Hypertensive heart and chronic kidney disease with heart failure and stage 1 through stage 4 chronic kidney disease, or unspecified chronic kidney disease; N18.9 Chronic kidney disease, unspecified; I50.9 Heart failure, unspecified; Z79.02 Long term (current) use of antithrombotics/antiplatelets; Z79.82 Long term (current) use of aspirin; Z79.4 Long term (current) use of insulin; I25.10 Atherosclerotic heart disease of native coronary artery without angina pectoris; E78.5 Hyperlipidemia, unspecified; Z87.891 Personal history of nicotine dependence
CPT/HCPCS: 36416; 36600; 80051; 80053; 82009; 82330; 82805; 82962; 85025; 93005; 96361; 96374; 96375; 99284; J1885; J2405; J7030

== ENCOUNTER 2022-06-07 19:48 | Emergency (ER) | payer BC, MEDICAID, SELFPAY ==
[2022-06-07] VITALS (10 sets, daily range): BP systolic 125–160; BP diastolic 75–98; PULSE 79–98; RESP 16–17; TEMP 37.2; O2SAT 98–100; BMI 23.8
--- NOTE | 2022-06-07 19:57 | ED_ITS ---
HPI - General Adult General: Chief complaint: General Medical Stated complaint: high blood sugar, Left rib pain post fall Time Seen by Provider: 06/07/22 19:57 History of Present Illness: Ms. Aguilar is a 36-year-old lady with extensive past medical history including uncontrolled type 1 diabetes, CKD, [place], COPD, others presenting to the emergency department due to high blood sugar and fall. She reports a history of recurrent syncope. Yesterday she was walking down the hallway and felt sudden onset of lightheadedness at which point she collapsed and landed primarily on the left side of her body. She endorses left rib pain since that time which is worse with palpation and movement as well as deep inspiration. Additionally she is out of her short acting insulin and blood sug ars have been high today. She feels generally unwell. Intensity symptoms is moderate. Course has worsened. No other specific changes in health, exacerbating, or alleviating factors identified. Onset (ago): day(s) Severity: moderate Relieving factors: none Exacerbating factors: movement Associated symptoms: Reports chest pain, headache(s), malaise and syncope Review of Systems General: Reports: 10 or more systems reviewed and unremarkable except in HPI and below Const: Reports: malaise Card: Reports: chest pain and syncope Neuro: Reports: headache(s) PFSH ED PFSH: Medical History Acute hyperglycemia Acute kidney injury superimposed on chronic kidney disease Anemia Anxiety Arnold-Chiari malformation CAD (coronary artery disease) Celiac disease CHF (congestive heart failure), NYHA class III Chronic headache Community acquired pneumonia Complicated UTI (urinary tract infection) COVID-19 Cystitis Diabetic gastroparesis -continue Reglan Diabetic neuropathy associated with type 1 diabetes mellitus DKA (diabetic ketoacidoses) Drug abuse Esophagitis Headache, common migraine, intractable, with status migrainosus History of pancreatitis HTN (hypertension) Hyperlipidemia Long-term insulin use Lymphadenitis Metabolic acidosis Migraine headache Neurogenic bladder Non-alcoholic fatty liver disease Pancreatitis PID (pelvic inflammatory disease) Pleural effusion 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 Pulmonary hypertension Pyelonephritis Recurrent UTI Respiratory failure Sepsis Tobacco dependence Transaminitis Uncontrolled type 1 diabetes mellitus Ureterolithiasis Surgical History History of cholecystectomy History of endoscopy History of lung surgery -s/p LLL lobectomy secondary to cavitary pneumonia (2017) Family History Grandfather Diabetes Other Heart disease Hypertension Social History Smoking and tobacco status: former smoker Second hand smoke exposure: Yes Alcohol intake: never Household members: children Housing: House Marital status: Single Current occupational status: unemployed Female Reproductive History: Date of last menstrual period: 07/24/21 Physical Exam Const: COMMON NORMALS: patient oriented x3 and alert GENERAL APPEARANCE: cooperative and well developed HENMT: COMMON NORMALS: normocephalic and atraumatic HEAD & SCALP: normocephalic and atraumatic THROAT: posterior oropharynx normal OTHER: No mendez signs or raccoon eyes. No hemotympanum. No otorrhea or rhinorrhea. Jaw alignment normal. Dentition baseline. No obvious bony step-offs. No septal hematoma. No evidence of ocular entrapment. Eye: COMMON NORMALS: conjunctivae normal CONJUNCTIVA: Yes conjunctivae normal SCLERA: sclerae normal Neck/C-Spine: COMMON NORMALS: supple GENERAL: Yes trachea midline Chest: OTHER: Lateral chest wall tenderness palpation Resp: COMMON NORMALS: normal respiratory effort EFFORT & INSPECTION: Yes able to speak in complete sentences Cardio: COMMON NORMALS: regular rate and regular rhythm RATE: regular rate RHYTHM: regular rhythm GI: COMMON NORMALS: Soft to palpation PALPATION: Yes Soft to palpation and No Tenderness to palpation present (GI) Extremity: GENERAL: Yes normal exam except as noted and No edema Neuro: COMMON NORMALS: patient oriented x3, CN's II-XII intact bilaterally, moves all extremities, no focal motor deficits and no sensory deficits noted SENSORIUM/ORIENTATION: Yes alert and No Orientation impaired Psych: COMMON NORMALS: mental status grossly normal and Normal thought process present THOUGHT PROCESS: Normal thought process present Course Vital Signs: Vital signs: Vital Signs Temperature 98.9 F 06/07/22 19:55 Pulse Rate 98 06/07/22 23:43 Respiratory Rate 16 06/07/22 23:43 Blood Pressure 125/75 06/07/22 23:43 Pulse Oximetry 98 06/07/22 23:43 Oxygen Delivery Me thod 06/07/22 19:55 [facility] - General Adult Medical Decision Making 36-year-old lady with complex past medical history presenting due to pain after fall and uncontrolled/generalized illness. Exam as above. EKG shows sinus rhythm with nonspecific ST segment abnormalities, no STEMI. Labs notable for no leukocytosis, normal hemoglobin. Metabolic panel with similar derangements to prior, hyperglycemia noted however serum ketones are negative. X-rays negative. Given persistent symptoms and tenderness to region on palpation advanced imaging felt to be appropriate. CT head obtained given syncope and negative for acute intracranial pathology. CT chest abdomen pelvis negative for acute traumatic injury. Patient feels improved with IV fluids and insulin as well as analgesia. The likely cause patient symptoms is multifactorial including medication noncompliance and recurrent fall of unclear etiology not requiring inpatient management at this time. Mostly because of pain is related to soft tissue injury. The patient has a allergy to acetaminophen and should avoid NSAIDs given CKD. Therefore I will prescribe a short course of analgesia. Risks and precautions discussed. I will refill patient's diabetes medications, I directed her to our pharmacy for further options if payment is an issue. The results of ED evaluation were discussed with the patient including prescriptions and/or symptomatic cares (if applicable) including appropriate and responsible use, followup plan, and return precautions. The patient verbalized understanding and felt safe for discharge. Medical Records I reviewed the patient's medical records. Lab Data I reviewed the patient's lab results. 06/07/22 22:15 06/07/22: Radiology Impressions Chest X-Ray 06/07/22 20:03 IMPRESSION: No acute findings. Ribs X-Ray 06/07/22 20:03 IMPRESSION: Negative for acute fracture or dislocation. Chest/Abdomen/Pelvis CT 06/07/22 22:07 IMPRESSION: Negative for acute thoracic injury. IMPRESSION: Negative for acute abdominopelvic injury. Head CT 06/07/22 22:07 IMPRESSION: No acute intracranial abnormality. Laboratory Results WBC 8.3 10^3/uL (4.0-10.0) 06/07/22 22:15 Corrected WBC Cancelled 06/07/22: RBC 4.31 10^6/uL (4.1-5.3) 06/07/22 22:15 Hgb 11.6 g/dL (11.5-15.3) 06/07/22 22:15 Hct 35.9 % (37.0-47.0) L 06/07/22 22:15 MCV 83.3 fl (81-99) 06/07/22 22:15 MCH 26.9 pg (28.0-34.0) L 06/07/22 22:15 MCHC 32.3 g/dL (30.0-36.0) 06/07/22 22:15 RDW 14.4 % (12.1-15.1) 06/07/22 22:15 Plt Count 261 10^3/cmm (130-400) 06/07/22 22:15 MPV 10.3 fL (7.4-10.4) 06/07/22 22:15 Gran % Cancelled 06/07/22 21:26 Neut % (Auto) 60.0 % 06/07/22 22:15 Lymph % (Auto) 30.3 % 06/07/22 22:15 [place] % (Auto) 6.9 % 06/07/22 22:15 Eos % (Auto) 1.9 % 06/07/22 22:15 Baso % (Auto) 0.7 % 06/07/22 22:15 Neut # (Auto) 4.98 10^3/uL (1.8-7.7) 06/07/22 22:15 Lymph # (Auto) 2.5 10^3/uL (0.8-4.8) 06/07/22 22:15 [place] # (Auto) 0.6 10^3/uL (0.2-0.9) 06/07/22 22:15 Eos # (Auto) 0.2 10^3/uL (0.0-0.8) 06/07/22 22:15 Baso # (Auto) 0.1 10^3/uL (0.0-0.1) 06/07/22 22:15 Absolute Gran (auto) Cancelled 06/07/22 21:26 Nucleated RBC % (auto) 0 % 06/07/22 22:15 Nucleated RBCs # 0.0 /100WBC 06/07/22 22:15 Specimen Type Cancelled 06/07/22 21:02 Sample Site Cancelled 06/07/22 21:02 O2 Sat Pulse Oximetry Cancelled 06/07/22 21:02 ABG pH Cancelled 06/07/22 21:02 ABG pCO2 Cancelled 06/07/22 21:02 ABG pO2 Cancelled 06/07/22 21:02 ABG HCO3 Cancelled 06/07/22 21:02 ABG Base Excess Cancelled 06/07/22 21:02 Braulio Test Cancelled 06/07/22 21:02 Hematocrit Cancelled 06/07/22 21:02 Respiration Rate Cancelled 06/07/22 21:02 O2 Delivery Device Cancelled 06/07/22 21:02 O2 Liters/Min Cancelled 06/07/22 21:02 SIMV Cancelled 06/07/22 21:02 Vent Mode Cancelled 06/07/22 21:02 Mechanical Rate Cancelled 06/07/22 21:02 Spontaneous Rate Cancelled 06/07/22 21:02 FiO2 Cancelled 06/07/22 21:02 Tidal Volume Cancelled 06/07/22 21:02 PEEP Cancelled 06/07/22 21:02 Pressure Support Cancelled 06/07/22 21:02 Pressure Control Cancelled 06/07/22 21:02 CPAP Cancelled 06/07/22 21:02 Mode BiPAP Cancelled 06/07/22 21:02 Specimen Drawn By Cancelled 06/07/22 21:02 Metal Window Screen Assembler ID Cancelled 06/07/22 21:02 Crit Value Read Back Cancelled 06/07/22 21:02 Blood Gas Notified Time Cancelled 06/07/22 21:02 Sodium 137 mmol/L (136-145) 06/07/22: Potassium 4.2 mmol/L (3.5-5.1) 06/07/22: Chloride 109 mmol/L (98-107) H 06/07/22: Carbon Dioxide 18 mmol/L (22-29) L 06/07/22: Anion Gap 14.2 (5-19) 06/07/22:26 BUN 36 mg/dL (6-20) H 06/07/22: Creatinine 1.9 mg/dL (0.5-0.9) H 06/07/22:26 GFR Calculation 30.1 mL/min (90-130) L 06/07/22:26 Glucose 326 mg/dL (65-115) H 06/07/22 21:26 POC Glucose 310 mg/dL (70-110) H 06/07/22 20:07 Calculated Osmolality 305 mOsm/kg (285-295) H 06/07/22 21: Calcium 8.7 mg/dL (8.5-10.5) 06/07/22 21: Total Bilirubin 0.2 mg/dL (0.15-1.2) 06/07/22 21: AST 23 U/L (0-32) 06/07/22 21: ALT 29 U/L (0-33) 06/07/22 21: Alkaline Phosphatase 96 U/L (35-105) 06/07/22 21: Total Protein 6.6 g/dL (6.6-8.7) 06/07/22: Albumin 3.1 g/dL (3.5-5.2) L 06/07/22: Globulin 3.5 g/dL (1.3-4.6) 06/07/22: TSH 1.93 uIU/mL (0.27-4.20) 06/07/22 21: HCG, Qual Negative (Negative) 06/07/22 21: Urine Color Yellow (Yellow) 06/07/22 21: Urine Appearance Clear (CLEAR) 06/07/22: Urine pH 7 (5-7) 06/07/22 21: Ur Specific [place] 1.010 (1.005-1.030) 06/07/22 21: Urine Protein 3+ (Negative) H 06/07/22: Urine Glucose (UA) 4+ (Normal) H 06/07/22 21: Urine Ketones Negative (Negative) 06/07/22 21: Urine Blood 2+ (Negative) H 06/07/22 21: Urine Nitrate Negative (Negative) 06/07/22: Urine Bilirubin Neg (Negative) 06/07/22: Urine Urobilinogen Norm mg/dL (Negative) 06/07/22 21: Ur Leukocyte Esterase Negative (Negative) 06/07/22 21: Urine RBC 0-4 /hpf (0-2) H 06/07/22 21: Urine WBC 0-4 /hpf (0-5) H 12/15/22 21:26 Ur Squamous Epith Cells 0-4 /hpf (0-5) H 06/07/22 21:26 Amorphous Sediment Not Reportable 06/07/22 21:26 Urine Bacteria None /hpf (NONE) 06/07/22 21:26 Serum Ketones Negative (Negative) 06/07/22 21:26 Discharge Plan Discharge Patient Disposition: Home Clinical Impression: Fall, Left sided abdominal pain, Left-sided chest wall pain, Hyperglycemia due to type 1 diabetes mellitus, CKD (chronic kidney disease), Hematuria Condition: Stable Prescriptions: New oxycodone 5 mg tablet 5 mg PO Q6H PRN (Reason: pain) Qty: 4 0RF Continued ergocalciferol (vitamin D2) 1,250 mcg (50,000 unit) capsule 1,250 mcg PO .weekly aspirin [Adult Low Dose Aspirin] 81 mg tablet,delayed release (DR/EC) 81 mg PO DAILY atorvastatin 40 mg tablet 40 mg PO DAILY Qty: 90 1RF carvedilol 6.25 mg tablet 6.25 mg PO BID Qty: 180 1RF Rx Instructions: must administer with a meal/food hydralazine 25 mg tablet 25 mg PO TID Qty: 270 1RF clopidogrel 75 mg tablet 75 mg PO DAILY Qty: 90 1RF isosorbide mononitrate 10 mg tablet 10 mg PO TID Qty: 270 1RF Rx Instructions: give doses 7 hrs apart Pepto-Bismol 262 mg Tablet 2 tab PO Q1H PRN (Reason: Heartburn) Rx Instructions: do not exceed 16 tabs per 24 hrs pantoprazole 40 mg tablet,delayed release (DR/EC) 40 mg PO DAILY@12 albuterol sulfate 90 mcg/actuation HFA aerosol inhaler 2 puff inhalation Q8H PRN (Reason: shortness of breath or wheezing) cyclobenzaprine 10 mg tablet 10 mg PO BID PRN (Reason: muscle spasm) Qty: 10 0RF furosemide 20 mg tablet 20 mg PO DAILY@0800 ondansetron 4 mg tablet,disintegrating 4 mg PO Q6H PRN (Reason: nausea and vomiting) Qty: 20 0RF diphenhydramine HCl [Benadryl Allergy] 25 mg Tablet 25 mg PO BEDTIME PRN (Reason: Allergy Symptoms) Novolog Flexpen U-100 Insulin 100 unit/mL (3 mL) Insulin Pen See Rx Instructions .ROUTE .COMPLEX Qty: 1 3RF Rx Instructions: SLIDING SCALE subcutaneously TID Lantus Solostar U-100 Insulin 100 unit/mL (3 mL) insulin pen 15 unit SUBCUT BID Qty: 15 3RF No Action (DME) Dexcom G6 Services Manager Misc See Rx Instructions .Route Qty: 1 0RF Rx Instructions: As directed (DME) Dexcom G6 Sensor Device See Rx Instructions .Route Qty: 3 0RF Rx Instructions: As directed (DME) Dexcom G6 Transmitter Device See Rx Instructions .Route Qty: 1 0RF Rx Instructions: As directed Glucagon Emergency Kit (human) 1 mg recon soln 1 mg SUBCUT Q15M PRN (Reason: hypoglycemia) Qty: 1 2RF Rx Instructions: until target blood sugar attained Discharge Orders: Discharge ED (Routine); Ordered 06/07/22 Ordered By: Arnoldo Estrada Referrals: Elizabeth Dougherty FNP [Primary Care Provider] - Discharge Diet: Diabetic Discharge Activity: Increase activity as tolerated Patient Instructions: Hematuria (ED), Contusion in Adults (ED), Diabetic Hyperglycemia (ED), Opioid Safety Activity Restrictions/Additional Instructions: Thank you for visiting the emergency department. You were seen and evaluated for fall with rib and flank pain as well as high blood sugar. CT does not demonstrate any acute fracture, the most likely cause of your symptoms is related to contusions and musculoskeletal pain. Additional laboratory studies show dehydration and high blood sugar however no evidence of DKA. I will refill the prescriptions for your insulin. Please follow-up with your primary care provider within the next 2 to 4 days. I recommend repeat urin alysis to assess hematuria, and further work-up with possible referral to urology if hematuria persists. Return to the emergency department for anything that you are concerned about and feel needs emergency department evaluation. Coding Level of Care Code ED Underground Repairer for Reji Chandler
--- NOTE | 2022-06-07 20:03 | XRR_ITS ---
PROCEDURE INFORMATION: Exam: XR Left Ribs with PA Chest Exam date and time: 06/07/2022 8:24 PM Age: 36 years old Clinical indication: Chest wall pain; Left; Additional info: Fall, pain TECHNIQUE: Imaging protocol: Radiologic exam of the Left ribs with PA chest. Views: 3 views COMPARISON: CR XR chest 1V portable [id number] 06/07/2022 8:22 PM FINDINGS: Lungs: Unremarkable. No consolidation. Pleural spaces: Unremarkable. No pleural effusion. No pneumothorax. Heart/Mediastinum: Unremarkable. No cardiomegaly. Bones/joints: Left posterior 4th chronic appearing healed rib fracture. XR/XR ribs LT mn 3V w CXR1V [id number] IMPRESSION: Negative for acute fracture or dislocation.
--- NOTE | 2022-06-07 20:03 | XRR_ITS ---
PROCEDURE INFORMATION: Exam: XR Chest Exam date and time: 06/07/2022 8:22 PM Age: 36 years old Clinical indication: Pain and injury or trauma; Fall; Chest wall pain; Additional info: Cough TECHNIQUE: Imaging protocol: Radiologic exam of the chest. Views: 1 view. COMPARISON: CR (CHEST, ) 05/20/2022 3:30 AM FINDINGS: Lungs: Unremarkable. No consolidation. Pleural spaces: Unremarkable. No pleural effusion. No pneumothorax. Heart/Mediastinum: Unremarkable. No cardiomegaly. Bones/joints: Unremarkable. XR/XR chest 1V portable [id number] IMPRESSION: No acute findings.
--- NOTE | 2022-06-07 20:05 | ECG_ITS ---
[facility] Test Date: 2022-06-07 Pat Name: Donita Aguilar Department: Room: Gender: Female Cda Teacher: : 1985 Requested By: Arnoldo Estrada Order Number: [id number] Faviola MD: Riccardo Burch M.D. Measurements Intervals [place] Rate: 79 P: 20 HI: 146 QRS: 28 QRSD: 94 T: 99 QT: 374 QTc: 430 Interpretive Statements SINUS RHYTHM ST DEVIATION AND MODERATE T-WAVE ABNORMALITY, CONSIDER LATERAL ISCHEMIA [-0.1+ mV T-WAVE IN I/aVL/V5/V6] Compared to ECG 05/30/2022 12:47:18 Possible ischemia now present T-wave abnormality still present Electronically Signed On 06-08-2022 13:52:17 CLOTH WINDER MACHINE OPERATOR by Riccardo Burch M.D. [id number]
[2022-06-07 20:11] LABS: Glucose Point of Care 310 mg/dL (70-110)
[2022-06-07] MEDS: oxyCODONE 5 mg IR Tab/Cap PO (20:51)
[2022-06-07 21:36] LABS: HCG Qualitative Urine. Negative (Negative)
[2022-06-07 22:00] LABS: Alanine Aminotransferase 29 U/L (0-33); Albumin Level 3.1 g/dL (3.5-5.2); Alkaline Phosphatase 96 U/L (35-105); Anion Gap 14.2 (5-19); Aspartate Amino Transferase 23 U/L (0-32); Blood Urea Nitrogen 36 mg/dL (6-20); Calcium 8.7 mg/dL (8.5-10.5); Carbon Dioxide 18 mmol/L (22-29); Chloride 109 mmol/L (98-107); Globulin 3.5 g/dL (1.3-4.6); Glomerular Filtration Rate 30.1 mL/min (90-130); Glucose 326 mg/dL (65-115); Osmolality Calculated 305 mOsm/kg (285-295); Potassium 4.2 mmol/L (3.5-5.1); Sodium 137 mmol/L (136-145); Thyroid Stimulating Hormone 1.93 uIU/mL (0.27-4.20); Total Bilirubin 0.2 mg/dL (0.15-1.2); Total Protein 6.6 g/dL (6.6-8.7)
[2022-06-07 22:02] LABS: Ketone (Acetest) Serum Negative (Negative)
[2022-06-07 22:03] LABS: Add Urine Microscopic? YES; Bilirubin Urine Neg (Negative); Blood Urine 2+ (Negative); Glucose Urine UA 4+ (Normal); Ketones Urine Negative (Negative); Leukocyte Esterase Urine Negative (Negative); Nitrate Urine Negative (Negative); Protein Urine 3+ (Negative); RBC Urine 0-4 /hpf (0-2); Squamous Epithelial Cell Urine 0-4 /hpf (0-5); Urine Appearance Clear (CLEAR); Urine Color Yellow (Yellow); Urobilinogen Urine Norm (Negative); WBC Urine 0-4 /hpf (0-5); pH Urine 7 (5-7)
[2022-06-07 22:04] LABS: Add Urine Culture? No
--- NOTE | 2022-06-07 22:07 | CTR_ITS ---
PROCEDURE INFORMATION: Exam: CT Head Without Contrast Exam date and time: 06/07/2022 10:20 PM Age: 36 years old Clinical indication: Injury or trauma; Blunt trauma (contusions or hematomas); Syncope and collapse; Patient HX: Syncope with fall yesterday. Elevated blood sugar. Patient lethargic. ; Additional info: Fall, AMS TECHNIQUE: Imaging protocol: Computed tomography of the head without contrast. Radiation optimization: All CT scans at this facility use at least one of these dose optimization techniques: automated exposure control; mA and/or kV adjustment per patient size (includes targeted exams where dose is matched to clinical indication); or iterative reconstruction. COMPARISON: CT head wo con* [id number] 04/03/2022 4:53 PM RADIATION DOSE METRICS: Total DLP (mGy-cm): 1007.59 FINDINGS: Brain: Normal. No hemorrhage. Unremarkable white matter. No mass effect. Cerebral ventricles: No ventriculomegaly. Paranasal sinuses: Visualized sinuses are unremarkable. No fluid levels. Mastoid air cells: Visualized mastoid air cells are well aerated. Bones/joints: Unremarkable. No acute fracture. Soft tissues: Unremarkable. CT/CT head wo con* [id number] IMPRESSION: No acute intracranial abnormality.
--- NOTE | 2022-06-07 22:07 | CTR_ITS ---
PROCEDURE INFORMATION: Exam: CT Chest Without Contrast; Diagnostic Exam date and time: 06/07/2022 10:23 PM Age: 36 years old Clinical indication: Injury or trauma; Generalized; Blunt trauma (contusions or hematomas); Prior surgery; Surgery type: Lll lobectomy. Gb; Patient HX: Syncope with fall yesterday. C/O left rib pain. Hematuria. ; Additional info: Fall, L side pain, hematuria, ? large renal injury/rib FX TECHNIQUE: Imaging protocol: Diagnostic computed tomography of the chest without contrast. Radiation optimization: All CT scans at this facility use at least one of these dose optimization techniques: automated exposure control; mA and/or kV adjustment per patient size (includes targeted exams where dose is matched to clinical indication); or iterative reconstruction. COMPARISON: [place] [id number] 04/13/2022 10:49 PM RADIATION DOSE METRICS: Total DLP (mGy-cm): 528.38 FINDINGS: Trachea: No central airway obstruction. Partially calcified anterior right lobe granuloma. Lungs: Postsurgical changes in the left lung volume loss. No consolidation. No hemorrhage. Pleural spaces: Scattered small calcified left pleural plaques. Negative for pleural effusion. Negative for pneumothorax. Heart: Unremarkable. No cardiomegaly. No pericardial effusion. Large volume coronary artery calcifications. Lymph nodes: Unremarkable. No enlarged lymph nodes. Vasculature: Unremarkable. No aortic aneurysm. Bones/joints: Unremarkable. No acute fracture. Soft tissues: Unremarkable. PROCEDURE INFORMATION: Exam: CT Abdomen And Pelvis Without Contrast Exam date and time: 06/07/2022 10:23 PM Age: 36 years old Clinical indication: Injury or trauma; Generalized; Blunt trauma (contusions or hematomas); Prior surgery; Surgery type: Lll lobectomy. Gb; Patient HX: Syncope with fall yesterday. C/O left rib pain. Hematuria. ; Additional info: Fall, L side pain, hematuria, ? large renal injury/rib FX TECHNIQUE: Imaging protocol: Computed tomography of the abdomen and pelvis without contrast. Radiation optimization: All CT scans at this facility use at least one of these dose optimization techniques: automated exposure control; mA and/or kV adjustment per patient size (includes targeted exams where dose is matched to clinical indication); or iterative reconstruction. COMPARISON: CT abdomen pelvis w con* [id number] 04/15/2022 9:52 PM RADIATION DOSE METRICS: Total DLP (mGy-cm): 528.38 FINDINGS: Liver: Normal. No mass. Gallbladder and bile ducts: Cholecystectomy. Nondilated biliary system. Pancreas: Normal. No ductal dilation. Spleen: Normal. No splenomegaly. Adrenal glands: Normal. No mass. Kidneys and ureters: Significant volume loss of the lower left kidney. No renal mass identified. Perinephric fluid collection. No subcapsular fluid collection. No renal stones. Negative hydroureteronephrosis. Stomach and bowel: Unremarkable. No obstruction. No mucosal thickening. Appendix: No evidence of appendicitis. Intraperitoneal space: Negative for fluid collection. Negative for pneumoperitoneum. Vasculature: Unremarkable. No abdominal aortic aneurysm. Lymph nodes: Unremarkable. No enlarged lymph nodes. Urinary bladder: Unremarkable as visualized. Reproductive: Unremarkable as visualized. Bones/joints: Grade 1 L5-S1 spondylolisthesis. L5 pars defects. No acute fracture. Soft tissues: Unremarkable. CT/CT chest abdpel [id number] IMPRESSION: Negative for acute thoracic injury. IMPRESSION: Negative for acute abdominopelvic injury.
[2022-06-07] MEDS: insulin regular-human 100 units/1 mL 10 UNIT IVP (22:27)
[2022-06-07 22:28] LABS: Basophils # 0.1 10^3/uL (0.0-0.1); Basophils % 0.7 %; Eosinophils # 0.2 10^3/uL (0.0-0.8); Eosinophils % 1.9 %; Hematocrit 35.9 % (37.0-47.0); Hemoglobin 11.6 g/dL (11.5-15.3); Lymphocytes # 2.5 10^3/uL (0.8-4.8); Lymphocytes % 30.3 %; Mean Corpuscular HGB Conc 32.3 g/dL (30.0-36.0); Mean Corpuscular Hemoglobin 26.9 pg (28.0-34.0); Mean Corpuscular Volume 83.3 fl (81-99); Mean Platelet Volume 10.3 fL (7.4-10.4); Monocytes # 0.6 10^3/uL (0.2-0.9); Monocytes % 6.9 %; Neutrophils # 4.98 10^3/uL (1.8-7.7); Nucleated Red Blood Cells % 0 %; Platelet Count 261 10^3/cmm (130-400); Red Blood Count 4.31 10^6/uL (4.1-5.3); Red Cell Distribution Width 14.4 % (12.1-15.1); White Blood Count 8.3 10^3/uL (4.0-10.0)
[2022-06-07] MEDS: sodium chloride 0.9% 1,000 ML 999 ML IV (22:35)
== END 2022-06-07 23:45 | disposition home or self-care (01) ==
PROVIDERS: Emergency Provider Emergency Medicine; PCP Nurse Practitioner Family
DX: E10.65 Type 1 diabetes mellitus with hyperglycemia (principal); E10.22 Type 1 diabetes mellitus with diabetic chronic kidney disease; I13.0 Hypertensive heart and chronic kidney disease with heart failure and stage 1 through stage 4 chronic kidney disease, or unspecified chronic kidney disease; N18.9 Chronic kidney disease, unspecified; I50.9 Heart failure, unspecified; R07.89 Other chest pain; R31.9 Hematuria, unspecified; Z79.82 Long term (current) use of aspirin; Z79.02 Long term (current) use of antithrombotics/antiplatelets; Z79.4 Long term (current) use of insulin; Z87.891 Personal history of nicotine dependence; Z90.2 Acquired absence of lung [part of]; I25.10 Atherosclerotic heart disease of native coronary artery without angina pectoris; E78.5 Hyperlipidemia, unspecified
CPT/HCPCS: 36416; 36600; 70450; 71045; 71101; 71250; 74176; 80053; 81001; 81025; 82009; 82803; 82962; 84443; 85025; 93005; 96361; 96374; 99285; J1815; J7030

== ENCOUNTER 2022-06-19 14:09 | Emergency (ER) | payer BC, MEDICAID, SELFPAY ==
[2022-06-19] VITALS (9 sets, daily range): BP systolic 127–189; BP diastolic 82–111; PULSE 79–88; RESP 14–16; TEMP 36.7; O2SAT 96–100
--- NOTE | 2022-06-19 17:40 | ECG_ITS ---
[facility] Test Date: 2022-06-19 Pat Name: Donita Aguilar Department: Room: Gender: Female Product Inspection Coordinator: : 1985 Requested By: Ronny Ayala Order Number: [id number] Faviola MD: Maame Montero M.D. Measurements Intervals [place] Rate: 79 P: 0 VA: 144 QRS: 49 QRSD: 93 T: 56 QT: 384 QTc: 441 Interpretive Statements SINUS RHYTHM NONSPECIFIC T-WAVE ABNORMALITY Compared to ECG 06/07/2022 20:20:19 Possible ischemia no longer present T-wave abnormality still present Electronically Signed On 06-20-2022 16:50:57 BACKGROUND INVESTIGATOR by Maame Montero M.D. [id number]
--- NOTE | 2022-06-19 17:41 | W.ED.GENADLT ---
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 She denies any vomiting or diarrhea denies any fevers. She is in no distress here. Associated symptoms: Reports headache(s); Deny chest pain, dyspnea, nausea, rash or vomiting Review of Systems Const: Denies: fever(s), chills, body aches or change in appetite Eyes: Denies: blurry vision or eye discomfort ENMT: Denies: throat pain or dental pain Card: Denies: chest pain Resp: Denies: dyspnea GI: Denies: abdominal pain, nausea, vomiting or diarrhea : Denies: dysuria Musc: Denies: neck pain or back pain Skin/Breast: Denies: rash Neuro: Reports: headache(s) Psych: Denies: depression Ramiro/Lymph: Denies: easy bruising All/Imm: Denies: urticaria PFSH ED PFSH: Medical History Acute hyperglycemia Acute kidney injury superimposed on chronic kidney disease Anemia Anxiety Arnold-Chiari malformation CAD (coronary artery disease) Celiac disease CHF (congestive heart failure), NYHA class III Chronic headache Community acquired pneumonia Complicated UTI (urinary tract infection) COVID-19 Cystitis Diabetic gastroparesis -continue Reglan Diabetic neuropathy associated with type 1 diabetes mellitus DKA (diabetic ketoacidoses) Drug abuse Esophagitis Headache, common migraine, intractable, with status migrainosus History of pancreatitis HTN (hypertension) Hyperlipidemia Long-term insulin use Lymphadenitis Metabolic acidosis Migraine headache Neurogenic bladder Non-alcoholic fatty liver disease Pancreatitis PID (pelvic inflammatory disease) Pleural effusion 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 Pulmonary hypertension Pyelonephritis Recurrent UTI Respiratory failure Sepsis Tobacco dependence Transaminitis Uncontrolled type 1 diabetes mellitus Ureterolithiasis Surgical History History of cholecystectomy History of endoscopy History of lung surgery -s/p LLL lobectomy secondary to cavitary pneumonia (2017) Family History Grandfather Diabetes Other Heart disease Hypertension Social History Smoking and tobacco status: former smoker Second hand smoke exposure: Yes Alcohol intake: never Household members: children Housing: House Marital status: Single Current occupational status: unemployed Female Reproductive History: Date of last menstrual period: 07/24/21 Physical Exam Const: COMMON NORMALS: no acute distress, patient oriented x3 and healthy appearing HENMT: COMMON NORMALS: normocephalic and atraumatic HEAD & SCALP: normocephalic and atraumatic Eye: COMMON NORMALS: Equal, round and reactive pupils present and EOMs intact bilaterally PUPIL: Yes Equal, round and reactive pupils present Neck/C-Spine: COMMON NORMALS: full ROM and supple Chest: COMMONS NORMALS: normal inspection of the chest and normal palpation of entire chest wall Resp: COMMON NORMALS: normal respiratory effort, No retractions, No use of accessory muscles and clear to auscultation bilaterally AUSCULTATION: clear to auscultation bilaterally Cardio: COMMON NORMALS: regular rate, regular rhythm and No murmurs present (Cardio) RATE: regular rate RHYTHM: regular rhythm GI: COMMON NORMALS: Normal to inspection, nondistended, normoactive bowel sounds present, Soft to palpation, non-tender and no masses PALPATION: Yes Soft to palpation Extremity: COMMON NORMALS: normal to inspection and full ROM Neuro: COMMON NORMALS: patient oriented x3, moves all extremities and no focal motor deficits Psych: COMMON NORMALS: mental status grossly normal, Normal thought process present and cooperative THOUGHT PROCESS: Normal thought process present Skin: COMMON NORMALS: no rashes or lesions noted and no wounds GENERAL SKIN EXAM: no rashes or lesions noted Course Vital Signs: Vital signs: Vital Signs Temperature 98.0 F 06/19/22 14:31 Pulse Rate 85 06/19/22 20:26 Respiratory Rate 16 06/19/22 20:26 Blood Pressure 145/98 06/19/22 20:26 Pulse Oximetry 99 06/19/22 20:26 Oxygen Delivery Me thod 06/19/22 18:46 [facility] - General Adult Medical Decision Making Patient presents here with hypertension her blood pressure is improved blood work is normal she is stable for discharge she is to follow-up with PCP and return if worsening. Lab Data 06/19/22 20:10 06/19/22 20:10 Laboratory Results WBC 7.5 10^3/uL (4.0-10.0) 06/19/22 20:10 Corrected WBC Cancelled 06/19/22 19:40 RBC 4.65 10^6/uL (4.1-5.3) 06/19/22 20:10 Hgb 12.5 g/dL (11.5-15.3) 06/19/22 20:10 Hct 38.6 % (37.0-47.0) 06/19/22 20:10 MCV 83.0 fl (81-99) 06/19/22 20:10 MCH 26.9 pg (28.0-34.0) L 06/19/22 20:10 MCHC 32.4 g/dL (30.0-36.0) 06/19/22 20:10 RDW 14.6 % (12.1-15.1) 06/19/22 20:10 Plt Count 237 10^3/cmm (130-400) 06/19/22 20:10 MPV 9.9 fL (7.4-10.4) 06/19/22 20:10 Gran % Cancelled 06/19/22 19:40 Neut % (Auto) 57.6 % 06/19/22 20:10 Lymph % (Auto) 30.0 % 06/19/22 20:10 [place] % (Auto) 7.7 % 06/19/22 20:10 Eos % (Auto) 3.5 % 06/19/22 20:10 Baso % (Auto) 0.9 % 06/19/22 20:10 Neut # (Auto) 4.32 10^3/uL (1.8-7.7) 06/19/22 20:10 Lymph # (Auto) 2.3 10^3/uL (0.8-4.8) 06/19/22 20:10 [place] # (Auto) 0.6 10^3/uL (0.2-0.9) 06/19/22 20:10 Eos # (Auto) 0.3 10^3/uL (0.0-0.8) 06/19/22 20:10 Baso # (Auto) 0.1 10^3/uL (0.0-0.1) 06/19/22 20:10 Absolute Gran (auto) Cancelled 06/19/22 19:40 Nucleated RBC % (auto) 0 % 06/19/22 20:10 Nucleated RBCs # 0.0 /100WBC 06/19/22 20:10 Sodium 137 mmol/L (136-145) 06/19/22 20:10 Potassium 4.6 mmol/L (3.5-5.1) 06/19/22 20:10 Chloride 107 mmol/L (98-107) 06/19/22 20:10 Carbon Dioxide 22 mmol/L (22-29) 06/19/22 20:10 Anion Gap 12.6 (5-19) 06/19/22 20:10 BUN 31 mg/dL (6-20) H 06/19/22 20:10 Creatinine 1.6 mg/dL (0.5-0.9) H 06/19/22 20:10 GFR Calculation 36.7 mL/min (90-130) L 06/19/22 20:10 Glucose 277 mg/dL (65-115) H 06/19/22 20:10 Calculated Osmolality 300 mOsm/kg (285-295) H 06/19/22 20:10 Calcium 9.0 mg/dL (8.5-10.5) 06/19/22 20:10 Total Bilirubin 0.2 mg/dL (0.15-1.2) 06/19/22 20:10 AST 52 U/L (0-32) H 06/19/22 20:10 ALT 60 U/L (0-33) H 06/19/22 20:10 Alkaline Phosphatase 100 U/L (35-105) 06/19/22 20:10 Total Protein 6.8 g/dL (6.6-8.7) 06/19/22 20:10 Albumin 2.8 g/dL (3.5-5.2) L 06/19/22 20:10 Globulin 4.0 g/dL (1.3-4.6) 06/19/22 20:10 EKG Data EKG 1: I personally reviewed and interpreted this EKG as follows: EKG interpretation date: 12/27/22 EKG interpretation time: 18:51 Interpretation: nsr hr [address] or twave abnormalities qrs 93 qtc 419 Discharge Plan Discharge Patient Disposition: Home Clinical Impression: HTN (hypertension) Condition: Stable Prescriptions: No Action ergocalciferol (vitamin D2) 1,250 mcg (50,000 unit) capsule 1,250 mcg PO .weekly aspirin [Adult Low Dose Aspirin] 81 mg tablet,delayed release (DR/EC) 81 mg PO DAILY (DME) Dexcom G6 Clubhouse Manager Misc See Rx Instructions .Route Qty: 1 0RF Rx Instructions: As directed (DME) Dexcom G6 Sensor Device See Rx Instructions .Route Qty: 3 0RF Rx Instructions: As directed (DME) Dexcom G6 Transmitter Device See Rx Instructions .Route Qty: 1 0RF Rx Instructions: As directed Glucagon Emergency Kit (human) 1 mg recon soln 1 mg SUBCUT Q15M PRN (Reason: hypoglycemia) Qty: 1 2RF Rx Instructions: until target blood sugar attained atorvastatin 40 mg tablet 40 mg PO DAILY Qty: 90 1RF carvedilol 6.25 mg tablet 6.25 mg PO BID Qty: 180 1RF Rx Instructions: must administer with a meal/food hydralazine 25 mg tablet 25 mg PO TID Qty: 270 1RF clopidogrel 75 mg tablet 75 mg PO DAILY Qty: 90 1RF isosorbide mononitrate 10 mg tablet 10 mg PO TID Qty: 270 1RF Rx Instructions: give doses 7 hrs apart Pepto-Bismol 262 mg Tablet 2 tab PO Q1H PRN (Reason: Heartburn) Rx Instructions: do not exceed 16 tabs per 24 hrs pantoprazole 40 mg tablet,delayed release (DR/EC) 40 mg PO DAILY@12 albuterol sulfate 90 mcg/actuation HFA aerosol inhaler 2 puff inhalation Q8H PRN (Reason: shortness of breath or wheezing) cyclobenzaprine 10 mg tablet 10 mg PO BID PRN (Reason: muscle spasm) Qty: 10 0RF furosemide 20 mg tablet 20 mg PO DAILY@0800 ondansetron 4 mg tablet,disintegrating 4 mg PO Q6H PRN (Reason: nausea and vomiting) Qty: 20 0RF diphenhydramine HCl [Benadryl Allergy] 25 mg Tablet 25 mg PO BEDTIME PRN (Reason: Allergy Symptoms) Novolog Flexpen U-100 Insulin 100 unit/mL (3 mL) Insulin Pen See Rx Instructions .ROUTE .COMPLEX Qty: 1 3RF Rx Instructions: SLIDING SCALE subcutaneously TID Lantus Solostar U-100 Insulin 100 unit/mL (3 mL) insulin pen 15 unit SUBCUT BID Qty: 15 3RF oxycodone 5 mg tablet 5 mg PO Q6H PRN (Reason: pain) Qty: 4 0RF Discharge Orders: Discharge ED (Routine); Ordered 06/19/22 Ordered By: Ronny Ayala Referrals: Elizabeth Dougherty FNP [Primary Care Provider] - 1-3 days Discharge Diet: Advance as tolerated Discharge Activity: Resume usual activity Patient Instructions: Hypertension (ED) Coding Level of Care Code ED Manager Safe for Reji Fwd Exam Comprehensive
--- NOTE | 2022-06-19 18:33 | PC.NURSE ---
Dr Ayala change route of hydralazine to IM from IVP.
[2022-06-19] MEDS: hyDRALAzine 20 mg/mL INJ 1 mL 10 MG IVP ×2 (18:40→20:38)
[2022-06-19 20:30] LABS: Basophils # 0.1 10^3/uL (0.0-0.1); Basophils % 0.9 %; Eosinophils # 0.3 10^3/uL (0.0-0.8); Eosinophils % 3.5 %; Hematocrit 38.6 % (37.0-47.0); Hemoglobin 12.5 g/dL (11.5-15.3); Lymphocytes # 2.3 10^3/uL (0.8-4.8); Mean Corpuscular HGB Conc 32.4 g/dL (30.0-36.0); Mean Corpuscular Hemoglobin 26.9 pg (28.0-34.0); Mean Platelet Volume 9.9 fL (7.4-10.4); Monocytes # 0.6 10^3/uL (0.2-0.9); Monocytes % 7.7 %; Neutrophils # 4.32 10^3/uL (1.8-7.7); Neutrophils % 57.6 %; Nucleated Red Blood Cells % 0 %; Platelet Count 237 10^3/cmm (130-400); Red Blood Count 4.65 10^6/uL (4.1-5.3); Red Cell Distribution Width 14.6 % (12.1-15.1); White Blood Count 7.5 10^3/uL (4.0-10.0)
[2022-06-19 20:38] LABS: Alanine Aminotransferase 60 U/L (0-33); Albumin Level 2.8 g/dL (3.5-5.2); Alkaline Phosphatase 100 U/L (35-105); Anion Gap 12.6 (5-19); Aspartate Amino Transferase 52 U/L (0-32); Blood Urea Nitrogen 31 mg/dL (6-20); Carbon Dioxide 22 mmol/L (22-29); Chloride 107 mmol/L (98-107); Glomerular Filtration Rate 36.7 mL/min (90-130); Glucose 277 mg/dL (65-115); Osmolality Calculated 300 mOsm/kg (285-295); Potassium 4.6 mmol/L (3.5-5.1); Sodium 137 mmol/L (136-145); Total Bilirubin 0.2 mg/dL (0.15-1.2); Total Protein 6.8 g/dL (6.6-8.7)
[2022-06-19] MEDS: HYDROcodone-acetaminophen 5-325 mg Tablet 1 TAB PO (21:02)
== END 2022-06-19 21:09 | disposition home or self-care (01) ==
PROVIDERS: Emergency Provider Emergency Medicine; PCP Nurse Practitioner Family
DX: I11.0 Hypertensive heart disease with heart failure (principal); I50.9 Heart failure, unspecified; Z79.02 Long term (current) use of antithrombotics/antiplatelets; Z79.82 Long term (current) use of aspirin; Z79.4 Long term (current) use of insulin; Z77.22 Contact with and (suspected) exposure to environmental tobacco smoke (acute) (chronic); I25.10 Atherosclerotic heart disease of native coronary artery without angina pectoris; E10.9 Type 1 diabetes mellitus without complications; E78.5 Hyperlipidemia, unspecified
CPT/HCPCS: 80053; 85025; 93005; 96374; 96376; 99284; J0360

== ENCOUNTER 2022-06-25 11:36 | Emergency (ER) | payer BC, MEDICAID, SELFPAY ==
[2022-06-25 12:02] VITALS: PULSE 80; RESP 16; TEMP 36.4; O2SAT 98
--- NOTE | 2022-06-25 12:22 | W.ED.ABDPA2 ---
HPI - Abdominal Pain General: Chief Complaint: Abdominal Pain Stated Complaint: abd pain Time Seen by Provider: 06/25/22 12:10 History of Present Illness: 36-year-old female presents with abdominal pain/ kidney pain patient reports that her kidneys been hurting for couple days. That last night her significant other reports that she has been having some nausea and vomiting. Patient reports that this is happened before. She is a diabetic with an insulin pump and they report her monitors been going up and down. He denied any fevers, chills. Associated Symptoms: Reports nausea and vomiting; Denies chills, dysuria and fever(s) Related Data: Date of Last Menstrual Period: 07/24/21 Review of Systems Const: Reports: fatigue and malaise; Denies: fever(s) or chills Eyes: Denies: change in vision or eye discomfort Card: Denies: chest pain or palpitations Resp: Denies: dyspnea or productive cough GI: Reports: abdominal pain, nausea and vomiting : Reports: flank pain; Denies: difficulty voiding or dysuria Musc: Reports: back pain (Flank pain) Skin/Breast: Denies: rash PFSH ED PFSH: Medical History Acute hyperglycemia Acute kidney injury superimposed on chronic kidney disease Anemia Anxiety Arnold-Chiari malformation CAD (coronary artery disease) Celiac disease CHF (congestive heart failure), NYHA class III Chronic headache Community acquired pneumonia Complicated UTI (urinary tract infection) COVID-19 Cystitis Diabetic gastroparesis -continue Reglan Diabetic neuropathy associated with type 1 diabetes mellitus DKA (diabetic ketoacidoses) Drug abuse Esophagitis Headache, common migraine, intractable, with status migrainosus History of pancreatitis HTN (hypertension) Hyperlipidemia Long-term insulin use Lymphadenitis Metabolic acidosis Migraine headache Neurogenic bladder Non-alcoholic fatty liver disease Pancreatitis PID (pelvic inflammatory disease) Pleural effusion 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 Pulmonary hypertension Pyelonephritis Recurrent UTI Respiratory failure Sepsis Tobacco dependence Transaminitis Uncontrolled type 1 diabetes mellitus Ureterolithiasis Surgical History History of cholecystectomy History of endoscopy History of lung surgery -s/p LLL lobectomy secondary to cavitary pneumonia (2017) Family History Grandfather Diabetes Other Heart disease Hypertension Social History Smoking and tobacco status: former smoker Second hand smoke exposure: Yes Alcohol intake: never Household members: children Housing: House Marital status: Single Current occupational status: unemployed Female Reproductive History: Date of last menstrual period: 07/24/21 Physical Exam Const: GENERAL APPEARANCE: ill appearing (chronic ) NUTRITIONAL APPEARANCE: thin HENMT: COMMON NORMALS: normocephalic and atraumatic HEAD & SCALP: normocephalic and atraumatic Resp: COMMON NORMALS: normal respiratory effort, No retractions and No use of accessory muscles Cardio: COMMON NORMALS: regular rate and regular rhythm RATE: regular rate RHYTHM: regular rhythm GI: COMMON NORMALS: Soft to palpation PALPATION: Yes Soft to palpation and Yes Tenderness to palpation present (GI) (mild bilateral lower abd ) : BLADDER/KIDNEY EXAM: Yes CVA tenderness (mild ) bilateral Back/Pelvis: GENERAL BACK: Yes CVA tenderness (mild ) Neuro: COMMON NORMALS: moves all extremities and no focal motor deficits Psych: ATTITUDE: Yes Withdrawn affect present Skin: COMMON NORMALS: no rashes or lesions noted GENERAL SKIN EXAM: no rashes or lesions noted Course Vital Signs: Vital signs: Vital Signs Temperature 97.6 F 06/25/22 12:02 Pulse Rate 74 06/25/22 15:56 Respiratory Rate 16 06/25/22 15:56 Blood Pressure 139/92 06/25/22 15:56 Pulse Oximetry 99 06/25/22 15:56 Oxygen Delivery Me thod 06/25/22 15:05 MDM - Abdominal Pain Medical Decision Making Patient had a urine concerning for cystitis along with bladder wall thickening on CT. No other significant findings. There is a questionable may be nonspecific gastritis. I will start her on Pyridium and Bactrim for her cystitis. Patient is stable and discharged Lab Data 06/25/22 12:24 06/25/22 12:24 Labs/Radiology: Radiology Impressions Abdomen/Pelvis CT 06/25/22 14:13 IMPRESSION: 1. Questionable mild wall thickening of the gastric antrum, possibly secondary to mild nonspecific gastritis. 2. Circumferential urinary bladder wall thickening. Correlate with urinalysis to exclude cystitis. 3. Additional findings, as above. Laboratory Results WBC 9.3 10^3/uL (4.0-10.0) 06/25/22 12:56 Corrected WBC Cancelled 06/25/22 12:24 RBC 4.39 10^6/uL (4.1-5.3) 06/25/22 12:56 Hgb 11.9 g/dL (11.5-15.3) 06/25/22 12:56 Hct 36.0 % (37.0-47.0) L 06/25/22 12:56 MCV 82.0 fl (81-99) 06/25/22 12:56 MCH 27.1 pg (28.0-34.0) L 06/25/22 12:56 MCHC 33.1 g/dL (30.0-36.0) 06/25/22 12:56 RDW 14.2 % (12.1-15.1) 06/25/22 12:56 Plt Count 264 10^3/cmm (130-400) 06/25/22 12:56 MPV 9.7 fL (7.4-10.4) 06/25/22 12:56 Gran % Cancelled 06/25/22 12:24 Neut % (Auto) 59.3 % 06/25/22 12:56 Lymph % (Auto) 29.4 % 06/25/22 12:56 [place] % (Auto) 6.8 % 06/25/22 12:56 Eos % (Auto) 3.3 % 06/25/22 12:56 Baso % (Auto) 1.0 % 06/25/22 12:56 Neut # (Auto) 5.51 10^3/uL (1.8-7.7) 06/25/22 12:56 Lymph # (Auto) 2.7 10^3/uL (0.8-4.8) 06/25/22 12:56 [place] # (Auto) 0.6 10^3/uL (0.2-0.9) 06/25/22 12:56 Eos # (Auto) 0.3 10^3/uL (0.0-0.8) 06/25/22 12:56 Baso # (Auto) 0.1 10^3/uL (0.0-0.1) 06/25/22 12:56 Absolute Gran (auto) Cancelled 06/25/22 12:24 Nucleated RBC % (auto) 0 % 06/25/22 12:56 Nucleated RBCs # 0.0 /100WBC 06/25/22 12:56 Specimen Type Arterial 06/25/22 12:29 Sample Site Radial, right 06/25/22 12:29 ABG pH 7.36 (7.35-7.45) 06/25/22 12:29 ABG pCO2 36.5 mmHg (35-45) 06/25/22 12:29 ABG pO2 99.4 mmHg (80.0-100.0) 06/25/22 12:29 ABG HCO3 20.4 mmol/L (22-26) L 06/25/22 12:29 ABG Base Excess -4.5 mmol/L (-2.0-2.0) L 06/25/22 12:29 Braulio Test Pos 06/25/22 12:29 Hematocrit 36.3 % (37-47) L 06/25/22 12:29 O2 Delivery Device Room air 06/25/22 12:29 FiO2 21.0 % 06/25/22 12:29 Circulation Librarian ID Cak 06/25/22 12:29 Sodium 137 mmol/L (136-145) 06/25/22 12:24 Potassium 4.0 mmol/L (3.5-5.1) 06/25/22 12:24 Chloride 106 mmol/L (98-107) 06/25/22 12:24 Carbon Dioxide 21 mmol/L (22-29) L 06/25/22 12:24 Anion Gap 14.0 (5-19) 06/25/22 12:24 BUN 27 mg/dL (6-20) H 06/25/22 12:24 Creatinine 1.7 mg/dL (0.5-0.9) H 06/25/22 12:24 GFR Calculation 34.2 mL/min (90-130) L 06/25/22 12:24 Glucose 205 mg/dL (65-115) H 06/25/22 12:24 Calculated Osmolality 295 mOsm/kg (285-295) 06/25/22 12:24 Lactate 1.8 mmol/L (0.5-2.2) 06/25/22 12:24 Calcium 8.5 mg/dL (8.5-10.5) 06/25/22 12:24 Total Bilirubin 0.2 mg/dL (0.15-1.2) 06/25/22 12:24 AST 64 U/L (0-32) H 06/25/22 12:24 ALT 87 U/L (0-33) H 06/25/22 12:24 Alkaline Phosphatase 90 U/L (35-105) 06/25/22 12:24 Total Protein 6.3 g/dL (6.6-8.7) L 06/25/22 12:24 Albumin 3.1 g/dL (3.5-5.2) L 06/25/22 12:24 Globulin 3.2 g/dL (1.3-4.6) 06/25/22 12:24 Lipase 24 U/L (13-60) 06/25/22 12:24 Procalcitonin 0.12 ng/mL (0-0.5) 06/25/22 12:24 HCG, Qual Negative (Negative) 06/25/22 12:24 Urine Color Straw (Yellow) 06/25/22 13:53 Urine Appearance Clear (CLEAR) 06/25/22 13:53 Urine pH 7 (5-7) 06/25/22 13:53 Ur Specific [place] 1.010 (1.005-1.030) 06/25/22 13:53 Urine Protein 3+ (Negative) H 06/25/22 13:53 Urine Glucose (UA) Trace (Normal) H 06/25/22 13:53 Urine Ketones Negative (Negative) 06/25/22 13:53 Urine Blood Trace (Negative) H 06/25/22 13:53 Urine Nitrate Negative (Negative) 06/25/22 13:53 Urine Bilirubin Neg (Negative) 06/25/22 13:53 Urine Urobilinogen Norm mg/dL (Negative) 06/25/22 13:53 Ur Leukocyte Esterase Negative (Negative) 06/25/22 13:53 Urine RBC Rare /hpf (0-2) 06/25/22 13:53 Urine WBC 0-4 /hpf (0-5) H 06/25/22 13:53 Ur Squamous Epith Cells 15-25 /hpf (0-5) H 06/25/22 13:53 Amorphous Sediment Not Reportable 06/25/22 13:53 Urine Bacteria 1+ /hpf (NONE) H 06/25/22 13:53 Serum Ketones Negative (Negative) 06/25/22 12:24 Discharge Plan Discharge Patient Disposition: Home Clinical Impression: Acute cystitis with hematuria Condition: Stable Prescriptions: New Pyridium 200 mg tablet 200 mg PO TID PRN (Reason: pain) Qty: 6 0RF Bactrim DS 800-160 mg tablet 1 tab PO BID 5 Days Qty: 10 0RF ondansetron 4 mg tablet,disintegrating 4 mg PO TID PRN (Reason: nausea and vomiting) Qty: 20 0RF No Action aspirin [Adult Low Dose Aspirin] 81 mg tablet,delayed release (DR/EC) 81 mg PO DAILY (DME) Dexcom G6 Inside Sales Associate Misc See Rx Instructions .Route Qty: 1 0RF Rx Instructions: As directed (DME) Dexcom G6 Sensor Device See Rx Instructions .Route Qty: 3 0RF Rx Instructions: As directed (DME) Dexcom G6 Transmitter Device See Rx Instructions .Route Qty: 1 0RF Rx Instructions: As directed Glucagon Emergency Kit (human) 1 mg recon soln 1 mg SUBCUT Q15M PRN (Reason: hypoglycemia) Qty: 1 2RF Rx Instructions: until target blood sugar attained carvedilol 6.25 mg tablet 6.25 mg PO BID Qty: 180 1RF Rx Instructions: must administer with a meal/food hydralazine 25 mg tablet 25 mg PO TID Qty: 270 1RF clopidogrel 75 mg tablet 75 mg PO DAILY Qty: 90 1RF isosorbide mononitrate 10 mg tablet 10 mg PO TID Qty: 270 1RF Rx Instructions: give doses 7 hrs apart Pepto-Bismol 262 mg Tablet 2 tab PO Q1H PRN (Reason: Heartburn) Rx Instructions: do not exceed 16 tabs per 24 hrs albuterol sulfate 90 mcg/actuation HFA aerosol inhaler 2 puff inhalation Q8H PRN (Reason: shortness of breath or wheezing) furosemide 20 mg tablet 20 mg PO DAILY@0800 ondansetron 4 mg tablet,disintegrating 4 mg PO Q6H PRN (Reason: nausea and vomiting) Qty: 20 0RF atorvastatin 40 mg tablet 40 mg PO BEDTIME Lantus Solostar U-100 Insulin 100 unit/mL (3 mL) insulin pen 18 unit SUBCUT BID insulin aspart U-100 [Novolog Flexpen U-100 Insulin] 100 unit/mL (3 mL) Insulin Pen See Rx Instructions .ROUTE .COMPLEX Qty: 1 3RF Rx Instructions: 10 units tid plus sliding scale Discharge Orders: Discharge ED (Routine); Ordered 06/25/22 Ordered By: Surendra Shook Referrals: Elizabeth Dougherty FNP [Primary Care Provider] - Discharge Diet: Usual diet Discharge Activity: Resume usual activity Patient Instructions: Urinary Tract Infection in Women (DC), Opioid Safety, Pain Management Activity Restrictions/Additional Instructions: Follow up with your primary care provider in 1 week for recheck of urine Coding Level of Care Code ED Bilingual Kindergarten Teacher for Chg Fwd Exam Comprehensive
[2022-06-25 12:40] LABS: ABG PCO2 36.5 mmHg (35-45); ABG PH Result 7.36 (7.35-7.45); Arterial Blood Gas Hematocrit 36.3 % (37-47); Base Excess ABG -4.5 mmol/L (-2.0-2.0); Blood Gas Allen Test Pos; Blood Gas Operator Identificat CAK; Blood Gas Sample Site Radial, right; Blood Gas Sample Type Arterial; HCO3 ABG 20.4 mmol/L (22-26); Oxygen Device ROOM AIR; PO2 ABG 99.4 mmHg (80.0-100.0)
[2022-06-25 12:48] LABS: HCG, Serum Qual Negative (Negative); Ketone (Acetest) Serum Negative (Negative)
[2022-06-25 12:53] LABS: Alanine Aminotransferase 87 U/L (0-33); Albumin Level 3.1 g/dL (3.5-5.2); Alkaline Phosphatase 90 U/L (35-105); Aspartate Amino Transferase 64 U/L (0-32); Blood Urea Nitrogen 27 mg/dL (6-20); Calcium 8.5 mg/dL (8.5-10.5); Carbon Dioxide 21 mmol/L (22-29); Chloride 106 mmol/L (98-107); Globulin 3.2 g/dL (1.3-4.6); Glomerular Filtration Rate 34.2 mL/min (90-130); Glucose 205 mg/dL (65-115); Lipase 24 U/L (13-60); Osmolality Calculated 295 mOsm/kg (285-295); Sodium 137 mmol/L (136-145); Total Bilirubin 0.2 mg/dL (0.15-1.2); Total Protein 6.3 g/dL (6.6-8.7)
[2022-06-25 12:54] LABS: Lactate (Lactic Acid level) 1.8 mmol/L (0.5-2.2)
[2022-06-25 13:00] LABS: Procalcitonin 0.12 ng/mL (0-0.5)
[2022-06-25 13:02] LABS: Basophils # 0.1 10^3/uL (0.0-0.1); Eosinophils # 0.3 10^3/uL (0.0-0.8); Eosinophils % 3.3 %; Hemoglobin 11.9 g/dL (11.5-15.3); Lymphocytes # 2.7 10^3/uL (0.8-4.8); Lymphocytes % 29.4 %; Mean Corpuscular HGB Conc 33.1 g/dL (30.0-36.0); Mean Corpuscular Hemoglobin 27.1 pg (28.0-34.0); Mean Platelet Volume 9.7 fL (7.4-10.4); Monocytes # 0.6 10^3/uL (0.2-0.9); Monocytes % 6.8 %; Neutrophils # 5.51 10^3/uL (1.8-7.7); Neutrophils % 59.3 %; Nucleated Red Blood Cells % 0 %; Platelet Count 264 10^3/cmm (130-400); Red Blood Count 4.39 10^6/uL (4.1-5.3); Red Cell Distribution Width 14.2 % (12.1-15.1); White Blood Count 9.3 10^3/uL (4.0-10.0)
[2022-06-25 13:13] VITALS: BP 126/86; PULSE 76; RESP 16; O2SAT 100
[2022-06-25] MEDS: fentaNYL 50 mcg/mL INJ 2mL 25 MCG IVP (13:24)
[2022-06-25] MEDS: sodium chloride 0.9% 1,000 ML 999 ML IV (13:24)
--- NOTE | 2022-06-25 13:30 | PC.PHAR ---
pt states she and her mother take care of her medications-pt states she doesnt think she is taking amlodipine 5mg bid any longer ext med history shows last filled 04/26/22 30d/s-pts mother states the pt hasnt taken her aspirin 81mg daily for about 2 weeks- pt states she uses lantus solostar 18 units bid rx written 06/07/22 15 units bid-notes are made in the pharmacy comments
[2022-06-25 14:12] LABS: Urine Appearance Clear (CLEAR); Urine Color Straw (Yellow)
[2022-06-25 14:13] LABS: Add Urine Culture? No; Add Urine Microscopic? YES; Bacteria Urine 1+ /hpf; Bilirubin Urine Neg (Negative); Blood Urine Trace (Negative); Glucose Urine UA Trace (Normal); Ketones Urine Negative (Negative); Leukocyte Esterase Urine Negative (Negative); Nitrate Urine Negative (Negative); Protein Urine 3+ (Negative); RBC Urine RARE /hpf (0-2); Squamous Epithelial Cell Urine 15-25 /hpf (0-5); Urobilinogen Urine Norm (Negative); WBC Urine 0-4 /hpf (0-5); pH Urine 7 (5-7)
--- NOTE | 2022-06-25 14:13 | CTR_ITS ---
PROCEDURE INFORMATION: Exam: CT Abdomen And Pelvis With Contrast Exam date and time: 06/25/2022 2:36 PM Age: 36 years old Clinical indication: Abdominal pain; Prior surgery; Surgery date: 6+ months; Surgery type: Gb, lll lobectomy; Additional info: Abd pain TECHNIQUE: Imaging protocol: Computed tomography of the abdomen and pelvis with contrast. Axial, coronal and sagittal reformatted images were created and reviewed. Radiation optimization: All CT scans at this facility use at least one of these dose optimization techniques: automated exposure control; mA and/or kV adjustment per patient size (includes targeted exams where dose is matched to clinical indication); or iterative reconstruction. Contrast material: OMNIPAQUE 350; Contrast volume: 95 ml; Contrast route: INTRAVENOUS (IV); COMPARISON: [place] [id number] 06/07/2022 10:23 PM RADIATION DOSE METRICS: Total DLP (mGy-cm): 370.47 FINDINGS: Lungs: Right lower lobe calcified granuloma. Diaphragm: Elevated left hemidiaphragm. Liver: Unremarkable. Gallbladder and bile ducts: Status post cholecystectomy. No biliary ductal dilatation. Pancreas: Unremarkable. Spleen: Coarse calcified splenic granuloma. Adrenal glands: Normal. No mass. Kidneys and ureters: Left greater than right renal cortical scarring and/or lobulation. No radiodense calculi. No hydronephrosis. Stomach and bowel: Questionable mild wall thickening of the gastric antrum. No obstruction. No pneumatosis. Appendix: Normal. Intraperitoneal space: No free fluid. No organized fluid collection. No free air. Vasculature: Mild atherosclerotic disease. No aneurysm or dissection. Lymph nodes: No pathologically enlarged lymph nodes. Urinary bladder: Circumferential urinary bladder wall thickening. Reproductive: Unremarkable. Bones/joints: No acute osseous abnormality. Soft tissues: Unremarkable. CT/CT abdomen pelvis w con* [id number] IMPRESSION: 1. Questionable mild wall thickening of the gastric antrum, possibly secondary to mild nonspecific gastritis. 2. Circumferential urinary bladder wall thickening. Correlate with urinalysis to exclude cystitis. 3. Additional findings, as above.
[2022-06-25] MEDS: iohexol 350 mg/mL 500 mL Btl (per mL) IV (14:38)
[2022-06-25 15:05] VITALS: BP 139/92; PULSE 74; RESP 16; O2SAT 99
[2022-06-25 15:56] VITALS: BP 139/92; PULSE 74; RESP 16; O2SAT 99
== END 2022-06-25 16:00 | disposition home or self-care (01) ==
PROVIDERS: Physician Assistant; Emergency Provider Student in an Organized Health Care Education/Training Program; PCP Nurse Practitioner Family
DX: N30.01 Acute cystitis with hematuria (principal); Z79.02 Long term (current) use of antithrombotics/antiplatelets; Z79.82 Long term (current) use of aspirin; Z79.4 Long term (current) use of insulin; Z77.22 Contact with and (suspected) exposure to environmental tobacco smoke (acute) (chronic); I13.0 Hypertensive heart and chronic kidney disease with heart failure and stage 1 through stage 4 chronic kidney disease, or unspecified chronic kidney disease; E10.22 Type 1 diabetes mellitus with diabetic chronic kidney disease; N18.9 Chronic kidney disease, unspecified; I50.9 Heart failure, unspecified; I25.10 Atherosclerotic heart disease of native coronary artery without angina pectoris; Z87.440 Personal history of urinary (tract) infections; E78.5 Hyperlipidemia, unspecified
CPT/HCPCS: 36600; 74177; 80053; 81001; 82009; 82803; 83605; 83690; 84145; 84703; 85025; 96360; 96361; 99284; J3010; J7030; Q9967

== ENCOUNTER 2022-06-28 10:15 | Inpatient (IN) | payer BC, SELFPAY ==
[2022-06-28] VITALS (24 sets, daily range): BP systolic 106–170; BP diastolic 68–109; PULSE 75–83; RESP 15–19; TEMP 36.6–36.9; O2SAT 95–98; BMI 25.4
--- NOTE | 2022-06-28 11:23 | XR_ITS ---
WS: [id number] Portable AP upright chest, 06/28/2022 Clinical Data: dyspnea/cough Comparison: Portable chest, 06/07/2022 Findings: No nodules, masses or effusions are seen. The heart is normal. The pulmonary vascularity is not increased. No pneumonia or pneumothorax is seen. There is scarring adjacent to the left hilum an d at the left cardiophrenic angle unchanged. XR/XR chest 1V portable [id number] Impression: Negative for acute cardiopulmonary disease.
--- NOTE | 2022-06-28 11:23 | ECG_ITS ---
[facility] Test Date: 2022-06-28 Pat Name: Donita Aguilar Department: Room: Gender: Female [employer] Supervisor: : [id number] Requested By: Shravan Nick Order Number: [id number] Faviola MD: Riccardo Burch M.D. Measurements Intervals [place] Rate: 76 P: 54 NM: 156 QRS: 45 QRSD: 98 T: 36 QT: 375 QTc: 422 Interpretive Statements SINUS RHYTHM NONSPECIFIC T-WAVE ABNORMALITY Compared to ECG 06/19/2022 18:51:46 No significant changes Electronically Signed On 06-28-2022 19:01:13 EDITOR & CO FOUNDER by Riccardo Burch M.D. [id number]
--- NOTE | 2022-06-28 11:52 | W.ED.ABDPA2 ---
HPI - Abdominal Pain General: Chief Complaint: Abdominal Pain Stated Complaint: n/v Time Seen by Provider: 06/28/22 11:21 Source: patient Mode of arrival: ambulatory History of Present Illness: 36-year-old female who presents to the emergency room with abdominal discomfort with nausea and vomiting. Patient complains of pain epigastric left upper quadrant area. Patient has a history of severe diabetes with diabetic gastroparesis. She denies any shortness of breath any dysuria urgency or frequency fever sweats or chills she has been using Pepto-Bismol at home. She has had ondansetron but has not used any to this point. MD elicited complaint: abdominal pain Pertinent past history: other (Diabetic gastroparesis) Onset (ago): day(s) Pain Consistency: constant Location: Epigastric Severity: moderate Quality: cramping Migration to: LUQ Exacerbating factors: eating Relieving factors: nothing Associated Symptoms: Reports bloating, GI cramping, dyspepsia, nausea, poor appetite and vomiting; Denies anorexia, belching, change in bowel habits, change in stool character, chills, coffee ground emesis, constipation, diarrhea, dysuria, excessive flatus, fever(s), heartburn, hematochezia, hematuria, hematemesis, fecal incontinence, loose stools, melena and syncope Related Data: Date of Last Menstrual Period: 07/24/21 Review of Systems Const: Denies: fever(s) or chills Card: Denies: syncope GI: Reports: nausea, vomiting, bloating and GI cramping; Denies: hematemesis, coffee ground emesis, heartburn, diarrhea, constipation, belching, excessive flatus, fecal incontinence, change in bowel habits, change in stool character, hematochezia or melena : Denies: dysuria or hematuria PFSH ED PFSH: Medical History Acute hyperglycemia Acute kidney injury superimposed on chronic kidney disease Anemia Anxiety Arnold-Chiari malformation CAD (coronary artery disease) Celiac disease CHF (congestive heart failure), NYHA class III Chronic headache Community acquired pneumonia Complicated UTI (urinary tract infection) COVID-19 Cystitis Diabetic gastroparesis -continue Reglan Diabetic neuropathy associated with type 1 diabetes mellitus DKA (diabetic ketoacidoses) Drug abuse Esophagitis Headache, common migraine, intractable, with status migrainosus History of pancreatitis HTN (hypertension) Hyperlipidemia Long-term insulin use Lymphadenitis Metabolic acidosis Migraine headache Neurogenic bladder Non-alcoholic fatty liver disease Pancreatitis PID (pelvic inflammatory disease) Pleural effusion 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 Pulmonary hypertension Pyelonephritis Recurrent UTI Respiratory failure Sepsis Tobacco dependence Transaminitis Uncontrolled type 1 diabetes mellitus Ureterolithiasis Surgical History History of cholecystectomy History of endoscopy History of lung surgery -s/p LLL lobectomy secondary to cavitary pneumonia (2017) Family History Grandfather Diabetes Other Heart disease Hypertension Social History Smoking and tobacco status: former smoker Second hand smoke exposure: Yes Alcohol intake: never Household members: children Housing: House Marital status: Single Current occupational status: unemployed Female Reproductive History: Date of last menstrual period: 07/24/21 Physical Exam Const: GENERAL APPEARANCE: cooperative ORIENTATION/CONSCIOUSNESS: Yes awake, Yes oriented to person, Yes oriented to place and Yes oriented to time HENMT: COMMON NORMALS: normocephalic, atraumatic and hearing grossly normal bilaterally HEAD & SCALP: normocephalic and atraumatic Resp: COMMON NORMALS: normal respiratory effort, No retractions, No use of accessory muscles and clear to auscultation bilaterally AUSCULTATION: clear to auscultation bilaterally Cardio: COMMON NORMALS: regular rate, regular rhythm and No murmurs present (Cardio) RATE: regular rate RHYTHM: regular rhythm GI: COMMON NORMALS: Soft to palpation and No hepatosplenomegaly present AUSCULTATION: Yes normoactive bowel sounds PALPATION: Yes Soft to palpation, No Tenderness to palpation present (GI), No Guarding due to palpation present (GI) and Yes No hepatosplenomegaly present Extremity: COMMON NORMALS: normal to inspection, capillary refill normal, no clubbing, cyanosis or edema, no calf tenderness and no pedal edema Neuro: SENSORIUM/ORIENTATION: Yes oriented to person, Yes oriented to place and Yes oriented to time Skin: COMMON NORMALS: no rashes or lesions noted GENERAL SKIN EXAM: no rashes or lesions noted Course Vital Signs: Vital signs: Vital Signs Temperature 98.3 F 06/28/22 20:00 Pulse Rate 83 06/28/22 22:39 Respiratory Rate 15 06/28/22 22:22 Blood Pressure 150/85 06/28/22 21:12 Pulse Oximetry 98 06/28/22 20:59 Oxygen Delivery Me thod 06/28/22 20:59 MDM - Abdominal Pain Medical Decision Making Mild acute kidney injury with persistent nausea and vomiting. Suspect patient has significant diabetic gastroparesis. With her persistent nausea and vomiting I do not think we can send her home due to her kidney injury. Continue fluids antiemetic discussed with hospitalist orders written Medical Records I reviewed the patient's medical records. Lab Data I reviewed the patient's lab results. 06/28/22 12:23 06/28/22 12:23 Labs/Radiology: Radiology Impressions Chest X-Ray 06/28/22 11:23 Impression: Negative for acute cardiopulmonary disease. Laboratory Results WBC 7.6 10^3/uL (4.0-10.0) 06/28/22 12:23 RBC 4.28 10^6/uL (4.1-5.3) 06/28/22 12:23 Hgb 11.4 g/dL (11.5-15.3) L 06/28/22 12:23 Hct 34.1 % (37.0-47.0) L 06/28/22 12:23 MCV 79.7 fl (81-99) L 06/28/22 12:23 MCH 26.6 pg (28.0-34.0) L 06/28/22 12:23 MCHC 33.4 g/dL (30.0-36.0) 06/28/22 12:23 RDW 13.9 % (12.1-15.1) 06/28/22 12:23 Plt Count 213 10^3/cmm (130-400) 06/28/22 12:23 MPV 9.4 fL (7.4-10.4) 06/28/22 12:23 Neut % (Auto) 65.8 % 06/28/22 12:23 Lymph % (Auto) 22.9 % 06/28/22 12:23 [place] % (Auto) 8.2 % 06/28/22 12:23 Eos % (Auto) 2.1 % 06/28/22 12:23 Baso % (Auto) 0.7 % 06/28/22 12:23 Neut # (Auto) 4.97 10^3/uL (1.8-7.7) 06/28/22 12:23 Lymph # (Auto) 1.7 10^3/uL (0.8-4.8) 06/28/22 12:23 [place] # (Auto) 0.6 10^3/uL (0.2-0.9) 06/28/22 12:23 Eos # (Auto) 0.2 10^3/uL (0.0-0.8) 06/28/22 12:23 Baso # (Auto) 0.1 10^3/uL (0.0-0.1) 06/28/22 12:23 Nucleated RBC % (auto) 0 % 06/28/22 12: Nucleated RBCs # 0.0 /100WBC 06/28/22 12:23 Sodium 138 mmol/L (136-145) 06/28/22 12:23 Potassium 4.0 mmol/L (3.5-5.1) 06/28/22 12:23 Chloride 106 mmol/L (98-107) 06/28/22 12:23 Carbon Dioxide 20 mmol/L (22-29) L 06/28/22 12:23 Anion Gap 16.0 (5-19) 06/28/22 12:23 BUN 35 mg/dL (6-20) H 06/28/22 12:23 Creatinine 3.6 mg/dL (0.5-0.9) H 06/28/22 12:23 GFR Calculation 14.4 mL/min (90-130) L 06/28/22 12:23 Glucose 172 mg/dL (65-115) H 06/28/22 12:23 Calculated Osmolality 298 mOsm/kg (285-295) H 06/28/22 12:23 Calcium 8.7 mg/dL (8.5-10.5) 06/28/22 12:23 Total Bilirubin 0.3 mg/dL (0.15-1.2) 06/28/22 12:23 AST 32 U/L (0-32) 06/28/22 12:23 ALT 88 U/L (0-33) H 06/28/22 12:23 Alkaline Phosphatase 99 U/L (35-105) 06/28/22 12:23 Total Protein 6.7 g/dL (6.6-8.7) 06/28/22 12:23 Albumin 3.1 g/dL (3.5-5.2) L 06/28/22 12:23 Globulin 3.6 g/dL (1.3-4.6) 06/28/22 12:23 Lipase 19 U/L (13-60) 06/28/22 12:23 Urine Color Yellow (Yellow) 06/28/22 11:18 Urine Appearance Hazy (CLEAR) A 06/28/22 11:18 Urine pH 8 (5-7) H 06/28/22 11:18 Ur Specific [place] 1.010 (1.005-1.030) 06/28/22 11:18 Urine Protein 3+ (Negative) H 06/28/22 11:18 Urine Glucose (UA) Trace (Normal) H 06/28/22 11:18 Urine Ketones Negative (Negative) 06/28/22 11:18 Urine Blood 2+ (Negative) H 06/28/22 11:18 Urine Nitrate Positive (Negative) H 06/28/22 11:18 Urine Bilirubin 1+ (Negative) H 06/28/22 11:18 Prot Sulfosalicylic Acd Negative (Negative) 06/28/22 11:18 Urine Urobilinogen 4 mg/dL (Negative) H 06/28/22 11:18 Ur Leukocyte Esterase Trace (Negative) H 06/28/22 11:18 Urine RBC 5-10 /hpf (0-2) H 06/28/22 11:18 Urine WBC 5-10 /hpf (0-5) H 06/28/22 11:18 Ur Squamous Epith Cells 15-25 /hpf (0-5) H 06/28/22 11:18 Amorphous Sediment 1+ /hpf 06/28/22 11:18 Urine Bacteria 2+ /hpf (NONE) H 06/28/22 11:18 Urine Mucus 1+ /hpf 06/28/22 11:18 Discharge Plan Discharge Patient Disposition: Admitted As Inpatient Admit Provider: Austin Che Clinical Impression: ERICA (acute kidney injury), Diabetic gastroparesis, Intractable nausea and vomiting Condition: Stable Coding Level of Care Code ED Learning Design Specialist for Chg Ramesh
[2022-06-28 12:13] LABS: Add Urine Microscopic? YES; Bilirubin Urine 1+ (Negative); Blood Urine 2+ (Negative); Glucose Urine UA Trace (Normal); Ketones Urine Negative (Negative); Leukocyte Esterase Urine Trace (Negative); Nitrate Urine Positive (Negative); Protein Urine 3+ (Negative); Sulfosalicylic Acid Urine Negative (Negative); Urine Appearance Hazy (CLEAR); Urine Color Yellow (Yellow); Urobilinogen Urine 4 mg/dL (Negative); pH Urine 8 (5-7)
[2022-06-28 12:17] LABS: Bacteria Urine 2+ /hpf; Squamous Epithelial Cell Urine 15-25 /hpf (0-5)
[2022-06-28 12:18] LABS: Amorphous Sediment Urine 1+ /hpf; Mucus Urine 1+ /hpf
[2022-06-28 12:34] LABS: Basophils # 0.1 10^3/uL (0.0-0.1); Basophils % 0.7 %; Eosinophils # 0.2 10^3/uL (0.0-0.8); Eosinophils % 2.1 %; Hematocrit 34.1 % (37.0-47.0); Hemoglobin 11.4 g/dL (11.5-15.3); Lymphocytes # 1.7 10^3/uL (0.8-4.8); Lymphocytes % 22.9 %; Mean Corpuscular HGB Conc 33.4 g/dL (30.0-36.0); Mean Corpuscular Hemoglobin 26.6 pg (28.0-34.0); Mean Corpuscular Volume 79.7 fl (81-99); Mean Platelet Volume 9.4 fL (7.4-10.4); Monocytes # 0.6 10^3/uL (0.2-0.9); Monocytes % 8.2 %; Neutrophils # 4.97 10^3/uL (1.8-7.7); Neutrophils % 65.8 %; Nucleated Red Blood Cells % 0 %; Platelet Count 213 10^3/cmm (130-400); Red Blood Count 4.28 10^6/uL (4.1-5.3); Red Cell Distribution Width 13.9 % (12.1-15.1); White Blood Count 7.6 10^3/uL (4.0-10.0)
[2022-06-28] MEDS: sodium chloride 0.9% 1,000 ML 999 ML IV (12:43)
[2022-06-28] MEDS: metoclopramide 5 mg/mL SDV 2 mL 10 MG IVP ×2 (12:44→22:22)
[2022-06-28] MEDS: LORazepam 2 mg/mL INJ 1 mL 1 MG IVP (12:44)
[2022-06-28] MEDS: haloperidol inj 5 mg/mL INJ 1 mL 2.5 MG IVP (12:44)
[2022-06-28 12:50] LABS: Alanine Aminotransferase 88 U/L (0-33); Albumin Level 3.1 g/dL (3.5-5.2); Alkaline Phosphatase 99 U/L (35-105); Aspartate Amino Transferase 32 U/L (0-32); Blood Urea Nitrogen 35 mg/dL (6-20); Calcium 8.7 mg/dL (8.5-10.5); Carbon Dioxide 20 mmol/L (22-29); Chloride 106 mmol/L (98-107); Globulin 3.6 g/dL (1.3-4.6); Glomerular Filtration Rate 14.4 mL/min (90-130); Glucose 172 mg/dL (65-115); Lipase 19 U/L (13-60); Osmolality Calculated 298 mOsm/kg (285-295); Sodium 138 mmol/L (136-145); Total Bilirubin 0.3 mg/dL (0.15-1.2); Total Protein 6.7 g/dL (6.6-8.7)
--- NOTE | 2022-06-28 17:20 | P.HP_ITS ---
Providers/Chief Complaint Admitting Physician: Austin Che MD Primary Care Provider: SUZANNE Dias Chief Complaint: n/v History of Present Illness Donita Aguilar is a 36 year old female with a past medical history for CAD, 3 vessel dx, transferred to [facility] where shot 3 stents, other hx of left lower lobe lobectomy for cavitary pneumonia, history of polysubstance abuse, insulin- dependent diabetes mellitus, history of diabetic nephropathy, past hx for COVID- 19 pneumonia, CKD, who presents [facility] due to recurrent vomiting.In the ER she was diagnosed with ERICA on CKD hence hospitalist was requested to admit. Patient states that she has been having left upper quadrant abdominal pain. He does have a known history of diabetic gastroparesis. She says she has not eaten anything all day. She did take her insulin however. She wears a Dexcom to monitor her blood sugars and at this time her blood sugar is 150. She says she has vomited all night last night. And she was recently in the ER for a severe UTI as she was told and given Bactrim at discharge. She has still been complaining of burning urination. She complains of abdominal pain. She is requesting pain medication at this time. She says she also would like to be on clear liquids as she cannot tolerate other food. She says sometimes she drinks too much liquid diet for her stomach feels too full. This has been ongoing recurrent issue for this patient. Review of Systems Const: Denies: fever(s) Eyes: Denies: change in vision ENMT: Denies: throat pain Card: Denies: chest pain Resp: Denies: dyspnea GI: Denies: abdominal pain : Denies: flank pain Musc: Denies: neck pain Skin/Breast: Denies: rash Neuro: Denies: headache(s) Psych: Denies: anxiety Endo: Denies: polyuria Ramiro/Lymph: Denies: easy bruising All/Imm: Denies: urticaria Medications/Allergies Home Medications Medication Instructions Recorded Confirmed Last Taken Type albuterol sulfate 90 mcg/actuation 2 puff inhalation Q8H PRN 02/07/22 06/28/22 Unknown History aerosol inhaler shortness of breath or wheezing bismuth subsalicylate 262 mg 2 tab PO Q1H PRN Heartburn 02/07/22 06/28/22 06/25/22 10:00 History tablet (Pepto-Bismol) aspirin 81 mg tablet,delayed 81 mg PO DAILY 04/06/22 06/28/22 2 Weeks Ago History release (Adult Low Dose Aspirin) ~06/11/22 carvedilol 6.25 mg tablet 6.25 mg PO BID #180 tabs 04/12/22 06/28/22 06/28/22 Rx clopidogrel 75 mg tablet 75 mg PO DAILY #90 tabs 04/12/22 06/28/22 06/28/22 Rx hydralazine 25 mg tablet 25 mg PO TID #270 tabs 04/12/22 06/28/22 06/28/22 Rx isosorbide mononitrate 10 mg tablet 10 mg PO TID #270 tabs 04/12/22 06/28/22 06/28/22 Rx furosemide 20 mg tablet 20 mg PO DAILY@0800 05/30/22 06/28/22 06/28/22 History insulin aspart U-100 100 unit/mL See Rx Instructions .Route 06/07/22 06/28/22 06/28/22 Rx (3 mL) subcutaneous pen (Novolog .COMPLEX #1 ea Flexpen U-100 Insulin aspart) blood-glucose meter,continuous #1 ea 06/12/22 06/28/22 Unknown Rx (Dexcom G6 [employer] Estate Services Administrator misc) blood-glucose sensor (Dexcom G6 #3 ea 06/12/22 06/28/22 Unknown Rx Sensor device) blood-glucose transmitter (Dexcom #1 ea 06/12/22 06/28/22 Unknown Rx G6 Transmitter device) glucagon 1 mg solution for 1 mg SUBCUT Q15M PRN hypoglycemia 06/12/22 06/28/22 Unknown Rx injection (Glucagon Emergency Kit) #1 ea atorvastatin 40 mg tablet 40 mg PO BEDTIME 06/25/22 06/28/22 06/27/22 History insulin glargine 100 unit/mL (3 18 unit SUBCUT BID 06/25/22 06/28/22 06/28/22 History mL) subcutaneous pen (Lantus Solostar U-100 Insulin) ondansetron 4 mg disintegrating 4 mg PO TID PRN nausea and 06/25/22 06/28/22 Unknown Rx tablet vomiting #20 tabs phenazopyridine 200 mg tablet 200 mg PO TID PRN pain 6 doses #6 06/25/22 06/28/22 06/28/22 Rx (Pyridium) tabs sulfamethoxazole 800 1 tab PO BID 5 days #10 tabs 06/25/22 06/28/22 06/28/22 Rx mg-trimethoprim 160 mg tablet (Bactrim DS) Allergies Allergy/AdvReac Type Severity Reaction Status Date / Time acetaminophen AdvReac Mild ADR-Gastrointestinal Verified 06/28/22 15:00 Upset PFSH Acute PFSH: Medical History Acute hyperglycemia Acute kidney injury superimposed on chronic kidney disease Anemia Anxiety Arnold-Chiari malformation CAD (coronary artery disease) Celiac disease CHF (congestive heart failure), NYHA class III Chronic headache Community acquired pneumonia Complicated UTI (urinary tract infection) COVID-19 Cystitis Diabetic gastroparesis -continue Reglan Diabetic neuropathy associated with type 1 diabetes mellitus DKA (diabetic ketoacidoses) Drug abuse Esophagitis Headache, common migraine, intractable, with status migrainosus History of pancreatitis HTN (hypertension) Hyperlipidemia Long-term insulin use Lymphadenitis Metabolic acidosis Migraine headache Neurogenic bladder Non-alcoholic fatty liver disease Pancreatitis PID (pelvic inflammatory disease) Pleural effusion 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 Pulmonary hypertension Pyelonephritis Recurrent UTI Respiratory failure Sepsis Tobacco dependence Transaminitis Uncontrolled type 1 diabetes mellitus Ureterolithiasis Surgical History History of cholecystectomy History of endoscopy History of lung surgery -s/p LLL lobectomy secondary to cavitary pneumonia (2017) Family History Grandfather Diabetes Other Heart disease Hypertension Social History Smoking and tobacco status: former smoker Second hand smoke exposure: Yes Alcohol intake: never Household members: children Housing: House Marital status: Single Current occupational status: unemployed Female Reproductive History: Date of last menstrual period: 07/24/21 Vitals/I&O/Wt Last Vital Signs Temp 98 F 06/28/22 10:50 Pulse 75 06/28/22 11:10 Resp 18 06/28/22 10:50 BP 152/95 06/28/22 14:00 Pulse Ox 97 06/28/22 12:30 O2 Del Method 06/28/22 10:50 Weight last 48 hrs Weight 58.967 kg Physical Exam Narrative: General: Alert oriented x3, patient seen. In bed appearing quite comfortable at this time. Does complain of abdominal pain but does not look uncomfortable. HEENT: Normocephalic, atraumatic, EOMI, breathing normally on room air. Cardio: Regular rate rhythm, normal S1-S2, Respiratory: Clear to auscultation bilaterally no wheezes no rhonchi no crackles appreciated. GI: Abdomen soft, mainly nontender however slightly tender around left upper quadrant area, nondistended, no guarding no rebound tenderness. Bowel sounds present and normoactive. Behavior: Appropriate and cooperative Extremities: No bilateral lower extremity edema. Data 06/28/22 12:23 06/28/22 12:23 A&P Assessment and plan (1) Diabetic gastroparesis: (2) Intractable nausea and vomiting: (3) CKD (chronic kidney disease) stage 3, GFR 30-59 ml/min: (4) Hyperlipidemia: (5) HTN (hypertension): (6) ERICA (acute kidney injury): (7) Pulmonary hypertension: (8) Long-term insulin use: Plan Nausea vomiting, abdominal pain most likely secondary to gastroparesis versus gastroenteritis ERICA on CKD UTI History of CAD three-vessel disease status post PCI x3 OLENA History of left lower lobe lobectomy for cavitary pneumonia History of polysubstance abuse Insulin-dependent diabetes mellitus History of COVID-19 pneumonia ? Obtain urine culture, check hemoglobin A1c ? Continue on ceftriaxone 1 g daily - Clear liquid diet at this time ? Check urine drug screen ? Morphine 2 mg IV x1 for abdominal pain at this time ? Continue Zofran for nausea. If uncontrolled may use Reglan. ? I will give Reglan 10 IV x1 at this time ? Continue aspirin, atorvastatin, Coreg, Plavix, hydralazine, Lantus, Imdur - I would probably place patient on Reglan 5 mg 3 times daily daily at discharge - Continue patient on IV fluids normal saline 150 cc/h ? Continue thiamine, folic acid ? Baseline creatinine around 1.7. Creatinine 3.6 today. Hopefully this will improve with IV fluids. Full code DVT prophylaxis: Heparin 5000 subcu twice daily Attestations Medical Necessity Statement*: Observation admission for nausea vomiting most likely secondary to gastroparesis and ERICA. Patient may end up staying greater than 2 midnights if creatinine does not improve or start to improve by tomorrow. At that point we will switch her to inpatient. Coding Level of Care Code Acute Bin Filler for Chg Fwd Diagnoses Diabetic gastroparesis E11.43; K31.84 Intractable nausea and vomiting R11.2 CKD (chronic kidney disease) stage 3, GFR 30-59 ml/min N18.30 Hyperlipidemia E78.5 HTN (hypertension) I10 ERICA (acute kidney injury) N17.9 Pulmonary hypertension I27.20 Long-term insulin use Z79.4
[2022-06-28 18:57] LABS: Glucose Point of Care 205 mg/dL (70-110)
[2022-06-28] MEDS: pantoprazole 40 mg SDV IVP (19:59)
[2022-06-28] MEDS: hyDRALAzine 25 mg Tablet PO (19:59)
[2022-06-28] MEDS: carvedilol 6.25 mg Tablet PO (20:00)
[2022-06-28] MEDS: heparin 5,000 unit/mL INJ 1 mL 5000 UNIT SUBCUT (20:00)
[2022-06-28] MEDS: insulin lispro 100 unit/1 mL SUBCUT (20:00)
[2022-06-28] MEDS: sodium chloride 0.9% 1,000 ML 150 ML IV (20:01)
[2022-06-28] MEDS: isosorbide mononitrate 20 mg Tablet 10 MG PO (20:14)
[2022-06-28] MEDS: insulin glargine 100 units/1 mL 10 UNIT SUBCUT (20:14)
[2022-06-28 21:46] LABS: Estmated Average Glucose 217; Hemoglobin A1C 9.2 % (4.0-6.0)
--- NOTE | 2022-06-28 21:51 | PC.NURSE ---
Pt referred to Dr. Garcia for pain management. Currently has order for APAP only and is allergic to APaP. Physician to come to floor to assess pt.
[2022-06-28] MEDS: cefTRIAXone 1,000 MG in sodium chloride 0.9% (plus) 50 ML 100 MG IV (22:22)
[2022-06-28] MEDS: morphine 4 mg/mL SDV 1 mL 2 MG IVP (22:22)
[2022-06-28 23:58] LABS: Add Urine Culture? Yes
[2022-06-29] VITALS (11 sets, daily range): BP systolic 91–148; BP diastolic 57–84; PULSE 68–78; RESP 16–20; TEMP 36.7–37; O2SAT 96–98
[2022-06-29 00:19] LABS: Amphetamines Screen Urine Negative (Negative); Barbiturates Screen Urine Negative (Negative); Benzodiazepines Screen Urine Negative (Negative); Cocaine Screen Urine Negative (Negative); Opiate Screen Urine Negative (Negative); PCP Screen Urine Negative (Negative); THC Screen Urine Negative (Negative)
[2022-06-29] MEDS: sodium chloride 0.9% 1,000 ML 150 ML IV ×3 (03:24→23:17)
--- NOTE | 2022-06-29 04:32 | PC.NURSE ---
NO received and noted for 1) KUB 2) Morphine 2mg IVP x 1 now 3) Reglan 5mg IVP x 1 dose now.
--- NOTE | 2022-06-29 04:33 | XR_ITS ---
WS: [id number] KUB, AP view, 06/29/2022 Clinical Data: abd pain Comparison: Acute abdomen series, 08/14/2017 Findings: No abnormal intraabdominal masses or calcifications are seen. There is no dilatated small bowel or ev idence of obstruction. There is scattered air in the small bowel and colon. There are clips in right upper quadrant from a c holecystectomy. There are monitor leads on the abdominal wall. There is an electronic device overlyin g the right upper abdomen. XR/XR KUB portable [id number] Impression: Mild generalized ileus.
[2022-06-29] MEDS: morphine 4 mg/mL SDV 1 mL 2 MG IVP ×2 (04:39→16:43)
[2022-06-29] MEDS: metoclopramide 5 mg/mL SDV 2 mL IVP ×3 (04:39→23:17)
[2022-06-29] MEDS: heparin 5,000 unit/mL INJ 1 mL 5000 UNIT SUBCUT ×2 (05:29→18:09)
[2022-06-29 05:42] LABS: Vitamin B12 429 pg/mL (232-1245)
[2022-06-29 07:17] LABS: Glucose Point of Care 77 mg/dL (70-110)
[2022-06-29] MEDS: aspirin 81 mg EC Tablet PO (07:48)
[2022-06-29] MEDS: hyDRALAzine 25 mg Tablet PO ×3 (07:49→21:43)
[2022-06-29] MEDS: clopidogrel 75 mg Tablet PO (07:49)
[2022-06-29] MEDS: carvedilol 6.25 mg Tablet PO ×2 (07:50→18:09)
--- NOTE | 2022-06-29 10:32 | PM.PN ---
Subjective Subjective: This morning patient stating that she is feeling slightly better We have to change her IV site because her previous IV site seems infiltrated Complaining of right arm pain Will do hot compresses ileus, continue clear liquid CBC BMP pending No active emesis since admission Vitals/I&O/Wt Last Vital Signs Temp 98.6 F 06/29/22 08:16 Pulse 74 06/29/22 08:16 Resp 18 06/29/22 08:16 BP 148/79 06/29/22 08:16 Pulse Ox 96 06/29/22 08:16 O2 Del Method 06/29/22 08:16 06/28/22 06/29/22 06/29/22 22:59 06:59 14:59 Intake Total 1050 / 1050 2029 / 3080 Balance 1050 / 1050 2029 / 3080 Weight last 48 hrs Weight 58.967 kg Physical Exam Narrative: Awake and alert Signs of dehydration EOMI, PERRLA S1, S2 Abdomen soft No active chest pain or shortness of breath Doing well on room air Low 70 no swelling No active abdominal pain or emesis Data 06/28/22 12:23 06/28/22 12:23 A&P Assessment and plan (1) Acute cystitis with hematuria: (2) Diabetic gastroparesis: (3) Intractable nausea and vomiting: (4) CKD (chronic kidney disease) stage 3, GFR 30-59 ml/min: (5) Uncontrolled type 1 diabetes mellitus: (6) HTN (hypertension): Plan Diabetic gastroparesis Ileus Continue liquid diet Repeat KUB this morning No active emesis Will advance diet if KUB shows improvement Awaiting on CBC and BMP Continue IV fluids Check Accu-Chek every 4 hours Blood glucose this morning 83 She has CGM for type 1 diabetes Hold insulin for now Care related dehydration continue IV fluids History of coronary disease continue aspirin Plavix UTI continue ceftriaxone however UA sample seems contaminated Attestations Medical Necessity Statement*: Continue medical management Time Spent in Patient Care: 40 Coding Level of Care Code Acute Manager Ship for [facility] Fwd Diagnoses Acute cystitis with hematuria N30.01 Diabetic gastroparesis E11.43; K31.84 Intractable nausea and vomiting R11.2 CKD (chronic kidney disease) stage 3, GFR 30-59 ml/min N18.30 Uncontrolled type 1 diabetes mellitus E10.65 HTN (hypertension) I10
--- NOTE | 2022-06-29 10:34 | XRR_ITS ---
PROCEDURE INFORMATION: Exam: XR Abdomen Exam date and time: 06/29/2022 10:41 AM Age: 36 years old Clinical indication: Abdominal pain; Additional info: Ileus, abd pain TECHNIQUE: Imaging protocol: Radiologic exam of the abdomen. Views: Frontal supine view of the abdomen. 1 View. COMPARISON: CR XR KUB portable [id number] 06/29/2022 5:22 AM FINDINGS: Gastrointestinal tract: Colonic bowel loops in the right upper quadrant measuring up to 6 cm in diameter. The remainder of the air-filled bowel loops appear unremarkable. Intraperitoneal space: The entirety of the abdomen is not included in the field of view. Bones/joints: Unremarkable. XR/XR KUB portable [id number] IMPRESSION: Air-filled large bowel loops in the right upper quadrant at the upper limits of normal. No significant signs of obstruction.
--- NOTE | 2022-06-29 11:11 | PC.CHAP ---
Pastoral Care Encounter/Spiritual Assessment Type of Contact [] Declined advertising intern visit [] Patient/Family/Request visit [] Outpatient visit [] Follow-up visit [] Physician referral [] Code/Alert [x] Routine visit [] Staff referral [] Actively dying [x] Patient sleeping [] Family support [] [] Out of room [] Palliative care [] [] Receiving care in room [] Pre-surgical visit [] Trauma [] Long length of stay [] ICU visit [] Other: Relational/Emotional Strength [] Patient feels connected with others/family/visitors/staff [] Distress [] Loneliness/isolation [] Abandonment Spirituality of Patient [] Person of [place] [] Attends Sikhism of their [place] [] Believes in Prayer [] Reads Bible or Faith materials [] There are Spiritual issues to be addressed Executive Vp Interventions [x] Prayer [] Active listening [] Non-anxious presence [] Spiritual/emotional support [] Crisis/trauma care [] Spiritual counseling [] Bereavement support [] Provided bereavement packet [] Provided Bible/devotional materials [] Provided toy/stuffed animal, coloring book to patient or family member [] Provided Communion [] Anointing/[place] [] Salvation [] Completed spiritual assessment [] Other: Impact on Illness or Injury [] Angry [] Fearful [] Anxious [] Often cries [] Exhaustion [] Unable to work [] Unable to attend taoist [] Unable to walk/stand [] Unable to read [] Unable to drive [] Unable to eat/drink [] Unable to sleep [] Unable to be with family [] Patient intubated [] Other: Summary Time spent with patient
--- NOTE | 2022-06-29 11:53 | PC.NURSE ---
Notified Dr. Che this patient's Arm is swelled and tight. He stated the IV was not infiltrated just in a bad location. Applied heat to affected area
--- NOTE | 2022-06-29 11:54 | PC.NURSE ---
Notified Dr. Che three nurses tried to an IV, called for Ultrasound whom tried as well with no success. Called ICU to please come and try.
[2022-06-29] MEDS: isosorbide mononitrate 20 mg Tablet 10 MG PO ×2 (11:56→21:43)
[2022-06-29 11:59] LABS: Glucose Point of Care 143 mg/dL (70-110)
[2022-06-29] MEDS: insulin lispro 100 unit/1 mL SUBCUT ×2 (12:37→18:08)
--- NOTE | 2022-06-29 14:24 | PC.NURSE ---
ICU nurse put IV in patients left upper arm by ultrasound
--- NOTE | 2022-06-29 15:53 | PC.NURSE ---
Dr. Che verbally gave orders to give 2 mg Morphine IV every 4 hours for patient for pain
--- NOTE | 2022-06-29 15:55 | PC.NURSE ---
Notified Dr. Che morning dose of Isosorbide late due to package not scanning. Sent to pharmacy to fix. Afternoon dose not given per Dr. Che.
[2022-06-29 16:43] LABS: Glucose Point of Care 207 mg/dL (70-110)
[2022-06-29] MEDS: insulin glargine 100 units/1 mL 10 UNIT SUBCUT (18:08)
[2022-06-29] MEDS: pantoprazole DR 40 mg Tablet PO (18:26)
[2022-06-29 19:34] LABS: Alanine Aminotransferase 63 U/L (0-33); Albumin Level 2.8 g/dL (3.5-5.2); Alkaline Phosphatase 87 U/L (35-105); Anion Gap 13.9 (5-19); Aspartate Amino Transferase 29 U/L (0-32); Blood Urea Nitrogen 28 mg/dL (6-20); Calcium 7.7 mg/dL (8.5-10.5); Carbon Dioxide 17 mmol/L (22-29); Chloride 111 mmol/L (98-107); Globulin 2.7 g/dL (1.3-4.6); Glomerular Filtration Rate 13.9 mL/min (90-130); Glucose 208 mg/dL (65-115); Magnesium 1.5 mg/dL (1.7-2.3); Osmolality Calculated 298 mOsm/kg (285-295); Phosphorus 5.3 mg/dL (2.5-4.5); Potassium 3.9 mmol/L (3.5-5.1); Sodium 138 mmol/L (136-145); Total Bilirubin 0.2 mg/dL (0.15-1.2); Total Protein 5.5 g/dL (6.6-8.7)
[2022-06-29 20:42] LABS: Glucose Point of Care 171 mg/dL (70-110)
[2022-06-29] MEDS: cefTRIAXone 1,000 MG in sodium chloride 0.9% (plus) 50 ML 100 MG IV (23:15)
[2022-06-30] VITALS (11 sets, daily range): BP systolic 122–163; BP diastolic 73–88; PULSE 70–78; RESP 16–18; TEMP 36.7–36.9; O2SAT 97–99
[2022-06-30 00:39] LABS: Glucose Point of Care 224 mg/dL (70-110)
[2022-06-30] MEDS: morphine 4 mg/mL SDV 1 mL 2 MG IVP ×3 (03:11→20:06)
[2022-06-30 04:30] LABS: Basophils # 0.1 10^3/uL (0.0-0.1); Basophils % 1.3 %; Eosinophils # 0.2 10^3/uL (0.0-0.8); Eosinophils % 3.6 %; Hematocrit 29.5 % (37.0-47.0); Hemoglobin 9.4 g/dL (11.5-15.3); Lymphocytes % 42.1 %; Mean Corpuscular HGB Conc 31.9 g/dL (30.0-36.0); Mean Corpuscular Hemoglobin 26.7 pg (28.0-34.0); Mean Corpuscular Volume 83.8 fl (81-99); Mean Platelet Volume 9.6 fL (7.4-10.4); Monocytes # 0.4 10^3/uL (0.2-0.9); Monocytes % 8.5 %; Neutrophils # 2.08 10^3/uL (1.8-7.7); Neutrophils % 44.3 %; Nucleated Red Blood Cells % 0 %; Platelet Count 199 10^3/cmm (130-400); Red Blood Count 3.52 10^6/uL (4.1-5.3); Red Cell Distribution Width 14.4 % (12.1-15.1); White Blood Count 4.7 10^3/uL (4.0-10.0)
[2022-06-30 04:47] LABS: Anion Gap 13.9 (5-19); Blood Urea Nitrogen 28 mg/dL (6-20); Calcium 7.3 mg/dL (8.5-10.5); Carbon Dioxide 17 mmol/L (22-29); Chloride 113 mmol/L (98-107); Glomerular Filtration Rate 15.4 mL/min (90-130); Glucose 226 mg/dL (65-115); Osmolality Calculated 303 mOsm/kg (285-295); Potassium 3.9 mmol/L (3.5-5.1); Sodium 140 mmol/L (136-145)
[2022-06-30] MEDS: heparin 5,000 unit/mL INJ 1 mL 5000 UNIT SUBCUT ×2 (05:54→17:17)
[2022-06-30 06:44] LABS: Glucose Point of Care 219 mg/dL (70-110)
[2022-06-30] MEDS: sodium chloride 0.9% 1,000 ML 150 ML IV ×2 (09:27→10:27)
[2022-06-30] MEDS: isosorbide mononitrate 20 mg Tablet 10 MG PO ×3 (09:34→23:40)
[2022-06-30] MEDS: hyDRALAzine 25 mg Tablet PO ×3 (09:35→20:06)
[2022-06-30] MEDS: pantoprazole DR 40 mg Tablet PO (09:35)
[2022-06-30] MEDS: carvedilol 6.25 mg Tablet PO ×2 (09:35→17:17)
[2022-06-30] MEDS: aspirin 81 mg EC Tablet PO (09:35)
[2022-06-30] MEDS: clopidogrel 75 mg Tablet PO (09:35)
[2022-06-30] MEDS: insulin lispro 100 unit/1 mL SUBCUT (09:36)
[2022-06-30] MEDS: insulin glargine 100 units/1 mL 10 UNIT SUBCUT (10:03)
--- NOTE | 2022-06-30 10:51 | P.PN_ITS ---
Subjective Subjective: Tolerating diet, creatinine coming down, hypomagnesemia, No active emesis, KUB showed no signs of obstruction Patient tolerating diet asking diet to be advanced Vitals/I&O/Wt Last Vital Signs Temp 98.3 F 06/30/22 07:43 Pulse 74 06/30/22 09:16 Resp 16 06/30/22 09:16 BP 133/76 06/30/22 07:43 Pulse Ox 98 06/30/22 09:16 O2 Del Method 06/30/22 09:16 06/29/22 06/30/22 06/30/22 22:59 06:59 14:59 Intake Total 240 / 1480 50 / 1530 1390 / 1390 Balance 240 / 1480 50 / 1530 1390 / 1390 Physical Exam 2 Narrative: Clinically doing well Awake and alert Tolerating diet at the bedside Nonfocal neuro exam Nontender abdomen No audible stridor or wheezing Appropriate mood and affect S1, S2 Doing well on room air Data 06/30/22 04:22 06/30/22 04:22 A&P Assessment and plan (1) Diabetic gastroparesis: (2) Intractable nausea and vomiting: (3) CKD (chronic kidney disease) stage 3, GFR 30-59 ml/min: (4) Uncontrolled type 1 diabetes mellitus: (5) HTN (hypertension): (6) Acute cystitis with hematuria: Plan Patient is not endorsing signs of UTI will discontinue antibiotics Diabetic gastroparesis related type 1 diabetes Improved Advance diet to mechanical soft today Acute on chronic kidney disease, creatinine trending down, if it is below 3 by tomorrow I will let her go home Continue insulin moderate dose sliding scale, Full code Continue IV fluid hydration DVT prophylaxis Heparin No active chest pain Continue dual antiplatelet therapy Attestations Medical Necessity Statement*: Discharge hopefully tomorrow Time Spent in Patient Care: 30 Coding Level of Care Code Acute Geophysical Laboratory Supervisor for g Fwd Diagnoses Diabetic gastroparesis E11.43; K31.84 Intractable nausea and vomiting R11.2 CKD (chronic kidney disease) stage 3, GFR 30-59 ml/min N18.30 Uncontrolled type 1 diabetes mellitus E10.65 HTN (hypertension) I10 Acute cystitis with hematuria N30.01
[2022-06-30] MEDS: magnesium oxide 400 mg tablet PO ×2 (11:28→17:10)
[2022-06-30 12:00] LABS: Glucose Point of Care 76 mg/dL (70-110)
[2022-06-30 16:43] LABS: Glucose Point of Care 120 mg/dL (70-110)
[2022-06-30] MEDS: sodium chloride 0.9% 1,000 ML 100 ML IV (17:12)
[2022-06-30 20:40] LABS: Glucose Point of Care 183 mg/dL (70-110)
[2022-07-01] VITALS (15 sets, daily range): BP systolic 116–156; BP diastolic 66–84; PULSE 64–81; RESP 16–18; TEMP 36.4–37.1; O2SAT 96–98
[2022-07-01] MEDS: morphine 4 mg/mL SDV 1 mL 2 MG IVP ×5 (00:28→20:43)
[2022-07-01 02:16] LABS: Glucose Point of Care 253 mg/dL (70-110)
[2022-07-01] MEDS: sodium chloride 0.9% 1,000 ML 100 ML IV ×2 (04:50→08:52)
[2022-07-01] MEDS: heparin 5,000 unit/mL INJ 1 mL 5000 UNIT SUBCUT ×2 (06:12→17:08)
[2022-07-01 06:33] LABS: Glucose Point of Care 155 mg/dL (70-110)
[2022-07-01 07:09] LABS: Anion Gap 13.1 (5-19); Blood Urea Nitrogen 20 mg/dL (6-20); Calcium 7.7 mg/dL (8.5-10.5); Carbon Dioxide 17 mmol/L (22-29); Chloride 114 mmol/L (98-107); Creatinine Clr Calc Pharmacy 25.2314; Glomerular Filtration Rate 21.9 mL/min (90-130); Glucose 154 mg/dL (65-115); Osmolality Calculated 296 mOsm/kg (285-295); Potassium 4.1 mmol/L (3.5-5.1); Sodium 140 mmol/L (136-145)
[2022-07-01] MEDS: clopidogrel 75 mg Tablet PO (08:53)
[2022-07-01] MEDS: isosorbide mononitrate 20 mg Tablet 10 MG PO ×3 (08:53→20:43)
[2022-07-01] MEDS: pantoprazole DR 40 mg Tablet PO (08:53)
[2022-07-01] MEDS: insulin lispro 100 unit/1 mL SUBCUT (08:53)
[2022-07-01] MEDS: carvedilol 6.25 mg Tablet PO ×2 (08:53→17:09)
[2022-07-01] MEDS: magnesium oxide 400 mg tablet PO ×2 (08:54→17:09)
[2022-07-01] MEDS: hyDRALAzine 25 mg Tablet PO ×3 (08:54→20:43)
[2022-07-01] MEDS: aspirin 81 mg EC Tablet PO (08:54)
[2022-07-01] MEDS: insulin glargine 100 units/1 mL 10 UNIT SUBCUT ×2 (10:51→17:08)
--- NOTE | 2022-07-01 10:55 | P.PN_ITS ---
Subjective Subjective: Patient is complaining abdominal pain stating that she is scared that she will go home and started vomiting again I told her we can watch her on mechanical soft diet I would not advance her diet and probably discharge her tomorrow creatinine is improving creatinine 2.5 today Continue IV fluids No signs of ileus or obstruction Vitals/I&O/Wt Last Vital Signs Temp 98.2 F 07/01/22 07:33 Pulse 73 07/01/22 08:34 Resp 16 07/01/22 08:34 BP 156/84 07/01/22 07:33 Pulse Ox 97 07/01/22 08:34 O2 Del Method 07/01/22 08:34 06/30/22 07/01/22 07/01/22 22:59 06:59 14:59 Intake Total 1360 / 3230 1000 / 4230 523.333 / 523.333 Balance 1360 / 3230 1000 / 4230 523.333 / 523.333 Physical Exam Narrative: Abdomen soft No signs of peritonitis Looks hydrated now S1, S2 No audible stridor or wheezing Awake and alert Nonfocal neuro exam Doing well on room air Data 06/30/22 04:22 07/01/22 06:37 Micro: Microbiology 06/28/22 11:18 Urine Culture - Final Urine,Clean Catch A&P Assessment and plan (1) Acute cystitis with hematuria: (2) Diabetic gastroparesis: (3) Intractable nausea and vomiting: (4) CKD (chronic kidney disease) stage 3, GFR 30-59 ml/min: (5) Uncontrolled type 1 diabetes mellitus: Plan Acute on chronic kidney disease related to dehydration hypovolemia improving creatinine 2.5 with symptomatic baseline Diabetic gastroparesis, type 1 diabetes Blood sugar within normal range Plan to discharge her tomorrow I would not advance her diet today Continue mechanical soft diet No active emesis Complaining abdominal cramps and pain Full code Prophylaxis on board Attestations Medical Necessity Statement*: Discharge tomorrow Time Spent in Patient Care: 30 Coding Level of Care Code Acute Cardiac Technologist for [facility] Fwd Diagnoses Acute cystitis with hematuria N30.01 Diabetic gastroparesis E11.43; K31.84 Intractable nausea and vomiting R11.2 CKD (chronic kidney disease) stage 3, GFR 30-59 ml/min N18.30 Uncontrolled type 1 diabetes mellitus E10.65
[2022-07-01 12:04] LABS: Glucose Point of Care 88 mg/dL (70-110)
[2022-07-01 16:57] LABS: Glucose Point of Care 124 mg/dL (70-110)
[2022-07-01 20:21] LABS: Glucose Point of Care 185 mg/dL (70-110)
[2022-07-02] VITALS (7 sets, daily range): BP systolic 130–144; BP diastolic 80; PULSE 66–68; RESP 16–18; TEMP 36.7–37; O2SAT 97–98
[2022-07-02] MEDS: morphine 4 mg/mL SDV 1 mL 2 MG IVP ×2 (01:35→08:58)
[2022-07-02 01:52] LABS: Glucose Point of Care 191 mg/dL (70-110)
[2022-07-02 05:34] LABS: Anion Gap 11.4 (5-19); Blood Urea Nitrogen 17 mg/dL (6-20); Calcium 8.4 mg/dL (8.5-10.5); Carbon Dioxide 18 mmol/L (22-29); Chloride 116 mmol/L (98-107); Glomerular Filtration Rate 25.4 mL/min (90-130); Glucose 116 mg/dL (65-115); Osmolality Calculated 295 mOsm/kg (285-295); Potassium 4.4 mmol/L (3.5-5.1); Sodium 141 mmol/L (136-145)
[2022-07-02] MEDS: heparin 5,000 unit/mL INJ 1 mL 5000 UNIT SUBCUT (05:57)
[2022-07-02] MEDS: sodium chloride 0.9% 1,000 ML 100 ML IV (05:58)
[2022-07-02 06:30] LABS: Glucose Point of Care 117 mg/dL (70-110)
--- NOTE | 2022-07-02 07:46 | P.DS_ITS ---
Discharge Providers Date of Admission: 06/29/22 15:45 Date of Discharge: July 02, 2022 Attending Provider at Admission: Austin Che MD Attending Provider at Discharge: Austin Che MD Primary Care Provider: SUZANNE Dias Diagnoses at Discharge Discharge Diagnosis (1) Acute cystitis with hematuria: Status: Acute (2) Diabetic gastroparesis: Status: Acute (3) Intractable nausea and vomiting: Status: Acute (4) CKD (chronic kidney disease) stage 3, GFR 30-59 ml/min: Status: Acute (5) Uncontrolled type 1 diabetes mellitus: Status: Acute Reason for Visit Reason for Visit: n/v Hospital Course Hospital Course 36-year female who was admitted for management of acute on chronic kidney disease related to recurrent nausea vomiting/diabetic gastroparesis. She is type I diabetic, has CGM. She was diagnosed with ileus at the time of admission however she tolerated her clear liquid diet very well which was advanced gradually, she Is tolerating her diet without any recurrence of nausea, vomiting she was experiencing mild abdominal cramps however no significant worsening of symptoms. She had 1 bowel movement before discharge. She was asked to ask stool advance her diet at home and continue her insulin. Creatinine at the discharge 2.2. Creatinine at the time of admission was around 3.7, she was given aggressive IV fluid hydration Physical Exam Narrative: Abdomen soft No signs of peritonitis Looks hydrated now S1, S2 No audible stridor or wheezing Awake and alert Nonfocal neuro exam Doing well on room air Discharge Data Studies Completed and Pending Completed Studies During Hospitalization Category Date Time Status XR KUB portable [id number] Routine Exams 06/29/22 04:33 Completed XR KUB portable [id number] Routine Exams 06/29/22 10:34 Completed XR chest 1V portable [id number] Stat Exams 06/28/22 11:23 Completed Radiology Impressions Chest X-Ray 06/28/22 11:23 Impression: Negative for acute cardiopulmonary disease. KUB X-Ray 06/29/22 10:34 IMPRESSION: Air-filled large bowel loops in the right upper quadrant at the upper limits of normal. No significant signs of obstruction. Laboratory Results WBC 4.7 10^3/uL (4.0-10.0) 06/30/22 04:22 Corrected WBC Cancelled 06/29/22 18:30 RBC 3.52 10^6/uL (4.1-5.3) L 06/30/22 04:22 Hgb 9.4 g/dL (11.5-15.3) L 06/30/22 04:22 Hct 29.5 % (37.0-47.0) L 06/30/22 04:22 MCV 83.8 fl (81-99) 06/30/22 04:22 MCH 26.7 pg (28.0-34.0) L 06/30/22 04:22 MCHC 31.9 g/dL (30.0-36.0) 06/30/22 04:22 RDW 14.4 % (12.1-15.1) 06/30/22 04:22 Plt Count 199 10^3/cmm (130-400) 06/30/22 04:22 MPV 9.6 fL (7.4-10.4) 06/30/22 04:22 Gran % Cancelled 06/29/22 18:30 Neut % (Auto) 44.3 % 06/30/22 04:22 Lymph % (Auto) 42.1 % 06/30/22 04:22 [place] % (Auto) 8.5 % 06/30/22 04:22 Eos % (Auto) 3.6 % 06/30/22 04:22 Baso % (Auto) 1.3 % 06/30/22 04:22 Neut # (Auto) 2.08 10^3/uL (1.8-7.7) 06/30/22 04:22 Lymph # (Auto) 2.0 10^3/uL (0.8-4.8) 06/30/22 04:22 [place] # (Auto) 0.4 10^3/uL (0.2-0.9) 06/30/22 04:22 Eos # (Auto) 0.2 10^3/uL (0.0-0.8) 06/30/22 04:22 Baso # (Auto) 0.1 10^3/uL (0.0-0.1) 06/30/22 04:22 Absolute Gran (auto) Cancelled 06/29/22 18:30 Nucleated RBC % (auto) 0 % 06/30/22 04:22 Nucleated RBCs # 0.0 /100WBC 06/30/22 04:22 Sodium 141 mmol/L (136-145) 07/02/22 04:48 Potassium 4.4 mmol/L (3.5-5.1) 07/02/22 04:48 Chloride 116 mmol/L (98-107) H 07/02/22 04:48 Carbon Dioxide 18 mmol/L (22-29) L 07/02/22 04:48 Anion Gap 11.4 (5-19) 07/02/22 04:48 BUN 17 mg/dL (6-20) 07/02/22 04:48 Creatinine 2.2 mg/dL (0.5-0.9) H 07/02/22 04:48 GFR Calculation 25.4 mL/min (90-130) L 07/02/22 04:48 Glucose 116 mg/dL (65-115) H 07/02/22 04:48 POC Glucose 117 mg/dL (70-110) H 07/02/22 06:23 Estimat Average Glucose 217 06/28/22 20:20 Hemoglobin A1c 9.2 % (4.0-6.0) H 06/28/22 20:20 Calculated Osmolality 295 mOsm/kg (285-295) 07/02/22 04:48 Calcium 8.4 mg/dL (8.5-10.5) L 07/02/22 04:48 Phosphorus 5.3 mg/dL (2.5-4.5) H 06/29/22 18:30 Magnesium 1.5 mg/dL (1.7-2.3) L 06/29/22 18:30 Total Bilirubin 0.2 mg/dL (0.15-1.2) 06/29/22 18:30 AST 29 U/L (0-32) 06/29/22 18:30 ALT 63 U/L (0-33) H 06/29/22 18:30 Alkaline Phosphatase 87 U/L (35-105) 06/29/22 18:30 C-Reactive Protein 3.0 mg/L (0.0-4.9) 06/29/22 18:30 Total Protein 5.5 g/dL (6.6-8.7) L 06/29/22 18:30 Albumin 2.8 g/dL (3.5-5.2) L 06/29/22 18:30 Globulin 2.7 g/dL (1.3-4.6) 06/29/22 18:30 Lipase 19 U/L (13-60) 06/28/22 12:23 Vitamin B12 429 pg/mL (232-1245) 06/28/22 20:20 Urine Color Yellow (Yellow) 06/28/22 11:18 Urine Appearance Hazy (CLEAR) A 06/28/22 11:18 Urine pH 8 (5-7) H 06/28/22 11:18 Ur Specific [place] 1.010 (1.005-1.030) 06/28/22 11:18 Urine Protein 3+ (Negative) H 06/28/22 11:18 Urine Glucose (UA) Trace (Normal) H 06/28/22 11:18 Urine Ketones Negative (Negative) 06/28/22 11:18 Urine Blood 2+ (Negative) H 06/28/22 11:18 Urine Nitrate Positive (Negative) H 06/28/22 11:18 Urine Bilirubin 1+ (Negative) H 06/28/22 11:18 Prot Sulfosalicylic Acd Negative (Negative) 06/28/22 11:18 Urine Urobilinogen 4 mg/dL (Negative) H 06/28/22 11:18 Ur Leukocyte Esterase Trace (Negative) H 06/28/22 11:18 Urine RBC 5-10 /hpf (0-2) H 06/28/22 11:18 Urine WBC 5-10 /hpf (0-5) H 06/28/22 11:18 Ur Squamous Epith Cells 15-25 /hpf (0-5) H 06/28/22 11:18 Amorphous Sediment 1+ /hpf 06/28/22 11:18 Urine Bacteria 2+ /hpf (NONE) H 06/28/22 11:18 Urine Mucus 1+ /hpf 06/28/22 11:18 Urine Opiates Screen Negative ng/mL (Negative) 06/28/22 11:18 Ur Barbiturates Screen Negative ng/mL (Negative) 06/28/22 11:18 Ur Phencyclidine Scrn Negative ng/mL (Negative) 06/28/22 11:18 Ur Amphetamines Screen Negative ng/mL (Negative) 06/28/22 11:18 U Benzodiazepines Scrn Negative ng/mL (Negative) 06/28/22 11:18 Urine Cocaine Screen Negative ng/mL (Negative) 06/28/22 11:18 U Marijuana (THC) Screen Negative ng/mL (Negative) 06/28/22 11:18 Vitals Last Vital Signs Temp 98.6 F 07/02/22 04:00 Pulse 68 07/02/22 06:34 Resp 16 07/02/22 04:00 BP 130/80 07/02/22 04:00 Pulse Ox 97 07/02/22 04:00 O2 Del Method 07/01/22 20:00 Discharge Plan Discharge Patient Disposition: Home Condition: Stable Prescriptions: New tramadol-acetaminophen 37.5-325 mg tablet 1 tab PO DAILY PRN (Reason: pain) 5 Days Qty: 5 0RF Continued aspirin [Adult Low Dose Aspirin] 81 mg tablet,delayed release (DR/EC) 81 mg PO DAILY (DME) Dexcom G6 [employer] Misc See Rx Instructions .Route Qty: 1 0RF Rx Instructions: As directed (DME) Dexcom G6 Sensor Device See Rx Instructions .Route Qty: 3 0RF Rx Instructions: As directed (DME) Dexcom G6 Transmitter Device See Rx Instructions .Route Qty: 1 0RF Rx Instructions: As directed Glucagon Emergency Kit (human) 1 mg recon soln 1 mg SUBCUT Q15M PRN (Reason: hypoglycemia) Qty: 1 2RF Rx Instructions: until target blood sugar attained carvedilol 6.25 mg tablet 6.25 mg PO BID Qty: 180 1RF Rx Instructions: must administer with a meal/food hydralazine 25 mg tablet 25 mg PO TID Qty: 270 1RF clopidogrel 75 mg tablet 75 mg PO DAILY Qty: 90 1RF isosorbide mononitrate 10 mg tablet 10 mg PO TID Qty: 270 1RF Rx Instructions: give doses 7 hrs apart Pepto-Bismol 262 mg Tablet 2 tab PO Q1H PRN (Reason: Heartburn) Rx Instructions: do not exceed 16 tabs per 24 hrs albuterol sulfate 90 mcg/actuation HFA aerosol inhaler 2 puff inhalation Q8H PRN (Reason: shortness of breath or wheezing) furosemide 20 mg tablet 20 mg PO DAILY@0800 atorvastatin 40 mg tablet 40 mg PO BEDTIME insulin glargine [Lantus Solostar U-100 Insulin] 100 unit/mL (3 mL) insulin pen 18 unit SUBCUT BID phenazopyridine [Pyridium] 200 mg tablet 200 mg PO TID PRN (Reason: pain) Qty: 6 0RF sulfamethoxazole-trimethoprim [Bactrim DS] 800-160 mg tablet 1 tab PO BID 5 Days Qty: 10 0RF ondansetron 4 mg tablet,disintegrating 4 mg PO TID PRN (Reason: nausea and vomiting) Qty: 20 0RF insulin aspart U-100 [Novolog Flexpen U-100 Insulin] 100 unit/mL (3 mL) Insulin Pen See Rx Instructions .ROUTE .COMPLEX Qty: 1 3RF Rx Instructions: 10 units tid plus sliding scale Discharge Orders: Discharge Order (Routine); Ordered 07/02/22 Ordered By: Austin Che Referrals: Elizabeth Dougherty FNP [Primary Care Provider] - 07/10/22 2:00 pm Discharge Diet: Cardiac Discharge Activity: Increase activity as tolerated Patient Instructions: Diabetic Gastroparesis (IP), Urinary Tract Infection in Women (GEN), Chronic Hypertension (DC) Discharge Attestations Time Spent in Discharge Care*: less than 30 min Status at Discharge: Cognitive status at discharge: cognitively intact , Behavioral status at discharge: cooperative and independent in ADL's , Quality Metrics Clinical Quality Measures [ No reported AMI, CVA or VTE this stay] Coding Level of Care Code Acute Chg FW DC note Diagnoses Acute cystitis with hematuria N30.01 Diabetic gastroparesis E11.43; K31.84 Intractable nausea and vomiting R11.2 CKD (chronic kidney disease) stage 3, GFR 30-59 ml/min N18.30 Uncontrolled type 1 diabetes mellitus E10.65
[2022-07-02] MEDS: magnesium oxide 400 mg tablet PO (08:51)
[2022-07-02] MEDS: aspirin 81 mg EC Tablet PO (08:51)
[2022-07-02] MEDS: pantoprazole DR 40 mg Tablet PO (08:52)
[2022-07-02] MEDS: clopidogrel 75 mg Tablet PO (08:52)
[2022-07-02] MEDS: isosorbide mononitrate 20 mg Tablet 10 MG PO (08:52)
[2022-07-02] MEDS: carvedilol 6.25 mg Tablet PO (08:52)
[2022-07-02] MEDS: hyDRALAzine 25 mg Tablet PO (08:52)
--- NOTE | 2022-07-02 10:48 | PC.NURSE ---
Discharge Note Patient discharged to home via private vehicle accompanied by renetta. Discharge instructions reviewed with patient and/or environmental marketing representative. Mobile pharmacy medications and/or prescriptions provided. Belongings/home medications returned. Patient's IV removed without complication, 2x2 guaze applied with cobaan. Patient wheeled to ER and stated they were calling a cab down there.
== END 2022-07-02 10:51 | disposition home or self-care (01) | DRG 74 ==
LOC: ER 11:54 → MEDSURG 19:47
PROVIDERS: Nurse Practitioner Family; Admitting Provider Internal Medicine; Emergency Provider Family Medicine; PCP Nurse Practitioner Family; Visit Provider Internal Medicine
DX: E10.43 Type 1 diabetes mellitus with diabetic autonomic (poly)neuropathy (principal); I13.0 Hypertensive heart and chronic kidney disease with heart failure and stage 1 through stage 4 chronic kidney disease, or unspecified chronic kidney disease; K56.7 Ileus, unspecified; N30.01 Acute cystitis with hematuria; N17.9 Acute kidney failure, unspecified; K31.84 Gastroparesis; E10.22 Type 1 diabetes mellitus with diabetic chronic kidney disease; N18.30 Chronic kidney disease, stage 3 unspecified; I50.9 Heart failure, unspecified; E86.0 Dehydration; E83.42 Hypomagnesemia; E10.65 Type 1 diabetes mellitus with hyperglycemia; R11.2 Nausea with vomiting, unspecified; I25.10 Atherosclerotic heart disease of native coronary artery without angina pectoris; E10.21 Type 1 diabetes mellitus with diabetic nephropathy; F19.11 Other psychoactive substance abuse, in remission; Z79.4 Long term (current) use of insulin; Z79.02 Long term (current) use of antithrombotics/antiplatelets; Z79.82 Long term (current) use of aspirin; Z95.5 Presence of coronary angioplasty implant and graft; Z90.2 Acquired absence of lung [part of]; Z86.16 Personal history of COVID-19; Z87.440 Personal history of urinary (tract) infections; Z90.49 Acquired absence of other specified parts of digestive tract; Z87.891 Personal history of nicotine dependence; Z86.14 Personal history of Methicillin resistant Staphylococcus aureus infection
CPT/HCPCS: 36415; 36416; 71045; 74018; 80048; 80053; 80306; 81001; 82607; 82962; 83036; 83690; 83735; 84100; 85025; 86140; 87086; 93005; 96361; 96372; 96374; 96375; 99285; C9113; G0378; J0696; J1630; J1644; J1815; J2060; J2270; J2765; J3411; J7030

== ENCOUNTER 2022-07-08 01:34 | Emergency (ER) | payer BC, MEDICAID, SELFPAY ==
[2022-07-08 01:45] VITALS: BP 140/88; PULSE 91; RESP 18; TEMP 37.1; O2SAT 99; BMI 3655.6
--- NOTE | 2022-07-08 01:52 | ED_ITS ---
HPI - Back Pain/Injury General: Chief Complaint: Back Pain/Injury Stated Complaint: kidney pain Time Seen by Provider: 07/08/22 01:39 Source: patient Mode of arrival: ambulatory Limitations: no limitations History of Present Illness: 36-year-old female is well-known to ER states she been having left lower back pain over the last 2 days. Patient states the pain is been sharp in nature worse with movement improved with rest rates pain is a 6 out of 10 currently denies any dysuria denies any fever denies any nausea vomiting. Associated symptoms: Deny abdominal pain, chills, fever(s), nausea or vomiting Review of Systems Const: Denies: fever(s), chills, body aches or change in appetite Eyes: Denies: blurry vision or eye discomfort ENMT: Denies: throat pain or dental pain Card: Denies: chest pain Resp: Denies: dyspnea GI: Denies: abdominal pain, nausea, vomiting or diarrhea : Reports: flank pain Musc: Reports: back pain Skin/Breast: Denies: rash Neuro: Denies: headache(s) Psych: Denies: depression Ramiro/Lymph: Denies: easy bruising All/Imm: Denies: urticaria PFSH ED PFSH: Medical History Acute cystitis with hematuria Acute hyperglycemia Acute kidney injury superimposed on chronic kidney disease ERICA (acute kidney injury) Anemia Anxiety Arnold-Chiari malformation CAD (coronary artery disease) Celiac disease CHF (congestive heart failure), NYHA class III Chronic headache CKD (chronic kidney disease) stage 3, GFR 30-59 ml/min Community acquired pneumonia Complicated UTI (urinary tract infection) COVID-19 Cystitis Diabetic gastroparesis -continue Reglan Diabetic gastroparesis Diabetic neuropathy associated with type 1 diabetes mellitus DKA (diabetic ketoacidoses) Drug abuse Esophagitis Headache, common migraine, intractable, with status migrainosus History of pancreatitis HTN (hypertension) Hyperlipidemia Intractable nausea and vomiting Long-term insulin use Lymphadenitis Metabolic acidosis Migraine headache Neurogenic bladder Non-alcoholic fatty liver disease Pancreatitis PID (pelvic inflammatory disease) Pleural effusion 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 Pulmonary hypertension Pyelonephritis Recurrent UTI Respiratory failure Sepsis Tobacco dependence Transaminitis Uncontrolled type 1 diabetes mellitus Ureterolithiasis Surgical History History of cholecystectomy History of endoscopy History of lung surgery -s/p LLL lobectomy secondary to cavitary pneumonia (2017) Family History Grandfather Diabetes Other Heart disease Hypertension Social History Smoking and tobacco status: former smoker Second hand smoke exposure: Yes Alcohol intake: never Household members: children Housing: House Marital status: Single Current occupational status: unemployed Female Reproductive History: Date of last menstrual period: 07/24/21 Physical Exam Const: COMMON NORMALS: no acute distress, patient oriented x3 and healthy appearing HENMT: COMMON NORMALS: normocephalic and atraumatic HEAD & SCALP: normocephalic and atraumatic Eye: COMMON NORMALS: Equal, round and reactive pupils present and EOMs intact bilaterally PUPIL: Yes Equal, round and reactive pupils present Neck/C-Spine: COMMON NORMALS: full ROM and supple Chest: COMMONS NORMALS: normal inspection of the chest and normal palpation of entire chest wall Resp: COMMON NORMALS: normal respiratory effort, No retractions, No use of a ccessory muscles and clear to auscultation bilaterally AUSCULTATION: clear to auscultation bilaterally Cardio: COMMON NORMALS: regular rate, regular rhythm and No murmurs present (Cardio) RATE: regular rate RHYTHM: regular rhythm GI: COMMON NORMALS: Normal to inspection, nondistended, normoactive bowel sounds present, Soft to palpation, non-tender and no masses PALPATION: Yes Soft to palpation Extremity: COMMON NORMALS: normal to inspection and full ROM Neuro: COMMON NORMALS: patient oriented x3, moves all extremities and no focal motor deficits Psych: COMMON NORMALS: mental status grossly normal, Normal thought process present and cooperative THOUGHT PROCESS: Normal thought process present Skin: COMMON NORMALS: no rashes or lesions noted and no wounds GENERAL SKIN EXAM: no rashes or lesions noted Course Vital Signs: Vital signs: Vital Signs Temperature 98.8 F 07/08/22 01:45 Pulse Rate 92 07/08/22 02:51 Respiratory Rate 22 H 07/08/22 02:51 Blood Pressure 164/93 07/08/22 02:51 Pulse Oximetry 95 07/08/22 02:51 Oxygen Delivery Me thod 07/08/22 02:51 MDM - Back Pain/Injury Medical Decision Making Patient presents here with back pain likely muscular in nature she is quite tender on exam her creatinine here is normal her pains improved she is stable for discharge she is follow-up with PCP and return if worsening. Labs 07/08/22 02:40 07/08/22 02:01 Laboratory Results WBC 9.9 10^3/uL (4.0-10.0) 07/08/22 02:40 Corrected WBC Cancelled 07/08/22 02:01 RBC 4.00 10^6/uL (4.1-5.3) L 07/08/22 02:40 Hgb 10.9 g/dL (11.5-15.3) L 07/08/22 02:40 Hct 33.3 % (37.0-47.0) L 07/08/22 02:40 MCV 83.3 fl (81-99) 07/08/22 02:40 MCH 27.3 pg (28.0-34.0) L 07/08/22 02:40 MCHC 32.7 g/dL (30.0-36.0) 07/08/22 02:40 RDW 13.9 % (12.1-15.1) 07/08/22 02:40 Plt Count 253 10^3/cmm (130-400) 07/08/22 02:40 MPV 9.9 fL (7.4-10.4) 07/08/22 02:40 Gran % Cancelled 07/08/22 02:01 Neut % (Auto) 66.0 % 07/08/22 02:40 Lymph % (Auto) 23.0 % 07/08/22 02:40 Bond % (Auto) 7.9 % 07/08/22 02:40 Eos % (Auto) 2.1 % 07/08/22 02:40 Baso % (Auto) 0.7 % 07/08/22 02:40 Neut # (Auto) 6.54 10^3/uL (1.8-7.7) 07/08/22 02:40 Lymph # (Auto) 2.3 10^3/uL (0.8-4.8) 07/08/22 02:40 Bond # (Auto) 0.8 10^3/uL (0.2-0.9) 07/08/22 02:40 Eos # (Auto) 0.2 10^3/uL (0.0-0.8) 07/08/22 02:40 Baso # (Auto) 0.1 10^3/uL (0.0-0.1) 07/08/22 02:40 Absolute Gran (auto) Cancelled 07/08/22 02:01 Nucleated RBC % (auto) 0 % 07/08/22 02:40 Nucleated RBCs # 0.0 /100WBC 07/08/22 02:40 Sodium 135 mmol/L (136-145) L 07/08/22 02:01 Potassium 4.0 mmol/L (3.5-5.1) 07/08/22 02:01 Chloride 99 mmol/L (98-107) 07/08/22 02:01 Carbon Dioxide 21 mmol/L (22-29) L 07/08/22 02:01 Anion Gap 19.0 (5-19) 07/08/22 02:01 BUN 30 mg/dL (6-20) H 07/08/22 02:01 Creatinine 2.3 mg/dL (0.5-0.9) H 07/08/22 02:01 GFR Calculation 24.1 mL/min (90-130) L 07/08/22 02:01 Glucose 284 mg/dL (65-115) H 07/08/22 02:01 Calculated Osmolality 296 mOsm/kg (285-295) H 07/08/22 02:01 Calcium 9.1 mg/dL (8.5-10.5) 07/08/22 02:01 Total Bilirubin 0.3 mg/dL (0.15-1.2) 07/08/22 02:01 AST 36 U/L (0-32) H 07/08/22 02:01 ALT 72 U/L (0-33) H 07/08/22 02:01 Alkaline Phosphatase 103 U/L (35-105) 07/08/22 02:01 Total Protein 7.3 g/dL (6.6-8.7) 07/08/22 02:01 Albumin 3.6 g/dL (3.5-5.2) 07/08/22 02:01 Globulin 3.7 g/dL (1.3-4.6) 07/08/22 02:01 Lipase 14 U/L (13-60) 07/08/22 02:01 HCG, Qual Negative (Negative) 07/08/22 02:01 Discharge Plan Discharge Patient Disposition: Home Clinical Impression: Back pain Condition: Stable Prescriptions: No Action aspirin [Adult Low Dose Aspirin] 81 mg tablet,delayed release (DR/EC) 81 mg PO DAILY (DME) Dexcom G6 [employer] Misc See Rx Instructions .Route Qty: 1 0RF Rx Instructions: As directed (DME) Dexcom G6 Sensor Device See Rx Instructions .Route Qty: 3 0RF Rx Instructions: As directed (DME) Dexcom G6 Transmitter Device See Rx Instructions .Route Qty: 1 0RF Rx Instructions: As directed Glucagon Emergency Kit (human) 1 mg recon soln 1 mg SUBCUT Q15M PRN (Reason: hypoglycemia) Qty: 1 2RF Rx Instructions: until target blood sugar attained carvedilol 6.25 mg tablet 6.25 mg PO BID Qty: 180 1RF Rx Instructions: must administer with a meal/food hydralazine 25 mg tablet 25 mg PO TID Qty: 270 1RF clopidogrel 75 mg tablet 75 mg PO DAILY Qty: 90 1RF isosorbide mononitrate 10 mg tablet 10 mg PO TID Qty: 270 1RF Rx Instructions: give doses 7 hrs apart Pepto-Bismol 262 mg Tablet 2 tab PO Q1H PRN (Reason: Heartburn) Rx Instructions: do not exceed 16 tabs per 24 hrs albuterol sulfate 90 mcg/actuation HFA aerosol inhaler 2 puff inhalation Q8H PRN (Reason: shortness of breath or wheezing) furosemide 20 mg tablet 20 mg PO DAILY@0800 atorvastatin 40 mg tablet 40 mg PO BEDTIME insulin glargine [Lantus Solostar U-100 Insulin] 100 unit/mL (3 mL) insulin pen 18 unit SUBCUT BID phenazopyridine [Pyridium] 200 mg tablet 200 mg PO TID PRN (Reason: pain) Qty: 6 0RF ondansetron 4 mg tablet,disintegrating 4 mg PO TID PRN (Reason: nausea and vomiting) Qty: 20 0RF insulin aspart U-100 [Novolog Flexpen U-100 Insulin] 100 unit/mL (3 mL) Insulin Pen See Rx Instructions .ROUTE .COMPLEX Qty: 1 3RF Rx Instructions: 10 units tid plus sliding scale Discharge Orders: Discharge ED (Routine); Ordered 07/08/22 Ordered By: Ronny Ayala Referrals: Elizabeth Dougherty FNP [Primary Care Provider] - Discharge Diet: Advance as tolerated Discharge Activity: Resume usual activity Patient Instructions: Back Pain (ED) Coding Level of Care Code ED Environmental Field Team Member for Chg Fwd Exam Comprehensive
[2022-07-08 02:15] LABS: HCG, Serum Qual Negative (Negative)
[2022-07-08 02:24] LABS: Alanine Aminotransferase 72 U/L (0-33); Albumin Level 3.6 g/dL (3.5-5.2); Alkaline Phosphatase 103 U/L (35-105); Aspartate Amino Transferase 36 U/L (0-32); Blood Urea Nitrogen 30 mg/dL (6-20); Calcium 9.1 mg/dL (8.5-10.5); Carbon Dioxide 21 mmol/L (22-29); Globulin 3.7 g/dL (1.3-4.6); Glomerular Filtration Rate 24.1 mL/min (90-130); Glucose 284 mg/dL (65-115); Lipase 14 U/L (13-60); Osmolality Calculated 296 mOsm/kg (285-295); Sodium 135 mmol/L (136-145); Total Bilirubin 0.3 mg/dL (0.15-1.2); Total Protein 7.3 g/dL (6.6-8.7)
[2022-07-08 02:32] LABS: Chloride 99 mmol/L (98-107)
[2022-07-08] MEDS: diphenhydrAMINE 50 mg/mL SDV 1mL IVP (02:43)
[2022-07-08] MEDS: metoclopramide 5 mg/mL SDV 2 mL 10 MG IVP (02:44)
[2022-07-08] MEDS: sodium chloride 0.9% 1,000 ML 999 ML IV (02:44)
[2022-07-08 02:49] LABS: Basophils # 0.1 10^3/uL (0.0-0.1); Basophils % 0.7 %; Eosinophils # 0.2 10^3/uL (0.0-0.8); Eosinophils % 2.1 %; Hematocrit 33.3 % (37.0-47.0); Hemoglobin 10.9 g/dL (11.5-15.3); Lymphocytes # 2.3 10^3/uL (0.8-4.8); Mean Corpuscular HGB Conc 32.7 g/dL (30.0-36.0); Mean Corpuscular Hemoglobin 27.3 pg (28.0-34.0); Mean Corpuscular Volume 83.3 fl (81-99); Mean Platelet Volume 9.9 fL (7.4-10.4); Monocytes # 0.8 10^3/uL (0.2-0.9); Monocytes % 7.9 %; Neutrophils # 6.54 10^3/uL (1.8-7.7); Nucleated Red Blood Cells % 0 %; Platelet Count 253 10^3/cmm (130-400); Red Cell Distribution Width 13.9 % (12.1-15.1); White Blood Count 9.9 10^3/uL (4.0-10.0)
[2022-07-08 02:51] VITALS: BP 164/93; PULSE 92; RESP 22; O2SAT 95
[2022-07-08 03:53] VITALS: BP 148/87; PULSE 98; RESP 16; TEMP 36.8; O2SAT 95
== END 2022-07-08 03:54 | disposition home or self-care (01) ==
PROVIDERS: Emergency Provider Emergency Medicine; PCP Nurse Practitioner Family
DX: M54.50 Low back pain, unspecified (principal); Z79.82 Long term (current) use of aspirin; Z79.02 Long term (current) use of antithrombotics/antiplatelets; Z79.4 Long term (current) use of insulin; Z87.891 Personal history of nicotine dependence; I13.0 Hypertensive heart and chronic kidney disease with heart failure and stage 1 through stage 4 chronic kidney disease, or unspecified chronic kidney disease; E10.22 Type 1 diabetes mellitus with diabetic chronic kidney disease; N18.30 Chronic kidney disease, stage 3 unspecified; I50.9 Heart failure, unspecified; I25.10 Atherosclerotic heart disease of native coronary artery without angina pectoris; E78.5 Hyperlipidemia, unspecified
CPT/HCPCS: 80053; 83690; 84703; 85025; 96361; 96374; 96375; 99284; J1200; J2765; J7030

== ENCOUNTER 2023-09-13 20:54 | Inpatient (IN) | payer MEDICAID, SELFPAY ==
[2023-09-13 21:07] VITALS: BP 134/78; PULSE 78; TEMP 36.6; O2SAT 99; BMI 23.2
--- NOTE | 2023-09-13 21:08 | XRR_ITS ---
PROCEDURE INFORMATION: Exam: XR Chest Exam date and time: 09/13/2023 9:29 PM Age: 38 years old Clinical indication: Chest wall pain; Additional info: Chest pain TECHNIQUE: Imaging protocol: Radiologic exam of the chest. Views: 1 view. COMPARISON: CR XR chest 1V portable [id number] 06/28/2022 11:27 AM FINDINGS: Tubes, catheters and devices: Right-sided central venous catheter. Lungs: Unremarkable. No consolidation. Pleural spaces: Unremarkable. No pleural effusion. No pneumothorax. Heart/Mediastinum: Cardiomegaly. Bones/joints: Unremarkable. XR/XR chest 1V portable [id number] IMPRESSION: 1. Negative for infiltrate 2. Cardiomegaly. 3. Right-sided central venous catheter.
--- NOTE | 2023-09-13 21:08 | ECG_ITS ---
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 Measurements Intervals [place] Rate: 79 P: 72 RI: 144 QRS: -8 QRSD: 106 T: 137 QT: 378 QTc: 436 Interpretive Statements SINUS RHYTHM POSSIBLE LEFT ATRIAL ENLARGEMENT [-0.1mV P-WAVE IN V1/V2] NONSPECIFIC ST & T-WAVE ABNORMALITY Compared to ECG 06/28/2022 11:39:10 No significant changes Electronically Signed On 09-14-2023 15:53:28 CDT by Riccardo Burch M.D. [email or web address]
--- NOTE | 2023-09-13 21:48 | ED_ITS ---
HPI - Chest Pain 2 General: Chief Complaint: Chest Pain Stated Complaint: cp left arm kidney pain karley pt today Time Seen by Provider: 09/13/23 21:40 History of Present Illness: 38-year-old female presents to the emerg ency department with complaints of substernal chest pain that radiates to her left shoulder. Patient states that she has dialysis Saturday and Saturday and she states that after dialysis today she started having chest pain that was a 4 out of 10 and pressure-like. She denies vomiting, dizziness or lightheaded feeling. She states she does feel slightly short of breath. She does have a dialysis catheter to the right chest wall. Associated symptoms: Reports dyspnea Review of Systems 2 General: Reports: 10 or more systems reviewed and unremarkable except in HPI and below Card: Reports: chest pain and edema Resp: Reports: dyspnea PFSH ED 2 PFSH: Medical History Intractable nausea and vomiting Diabetic gastroparesis Acute cystitis with hematuria CKD (chronic kidney disease) stage 3, GFR 30-59 ml/min ERICA (acute kidney injury) CHF (congestive heart failure), NYHA class III Pulmonary hypertension CAD (coronary artery disease) Neurogenic bladder Acute kidney injury superimposed on chronic kidney disease Metabolic acidosis COVID-19 Tobacco dependence Drug abuse Anemia Community acquired pneumonia Acute hyperglycemia Esophagitis Complicated UTI (urinary tract infection) Transaminitis Long-term insulin use History of pancreatitis Hyperlipidemia Celiac disease Recurrent UTI Non-alcoholic fatty liver disease Arnold-Chiari malformation Diabetic gastroparesis -continue Reglan Diabetic neuropathy associated with type 1 diabetes mellitus Headache, common migraine, intractable, with status migrainosus Cystitis Pleural effusion 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 Uncontrolled type 1 diabetes mellitus Lymphadenitis Ureterolithiasis Pyelonephritis PID (pelvic inflammatory disease) Anxiety Sepsis Respiratory failure HTN (hypertension) Pancreatitis DKA (diabetic ketoacidoses) Migraine headache Chronic headache Surgical History History of lung surgery -s/p LLL lobectomy secondary to cavitary pneumonia (2017) History of endoscopy History of cholecystectomy Family History Grandfather Diabetes Other Heart disease Hypertension Social History Smoking and tobacco/nicotine status: former use of tobacco/nicotine Second hand smoke exposure: Yes Alcohol intake: never Substance/Drug Use: current Household members: children Housing: House Marital status: Single Current occupational status: unemployed Physical Exam 2 Narrative: EXAM NARRATIVE: Constitutional: the patient appears well nourished and of normal development. Vital signs as documented. No acute distress at present. Alert and oriented-to person, place, time and situation. Head, eyes, ears, nose, mouth, throat: Normocephalic, atraumatic. Pupils-equal, round, reactive to light. No scleral icterus. Normal-appearing external ears. Normal appearing nasal turbinates, no drainage. No obvious oral lesions, posterior oropharynx without erythema or exudates. Neck: Supple, trachea is midline, no lymphadenopathy, no jugular venous distension, thyromegaly, or carotid bruits. Carotid upstrokes are brisk bilaterally. Lungs: clear to auscultation to all lung torres. Symmetrical rise and fall of chest, no obvious signs of increased work of breathing at present. Cardiac: Regular rate and rhythm, positive S1, S2. No murmurs, rubs or gallops that I can appreciate Abdomen: Soft, non-tender to palpation, normal active bowel sounds to all quadrants. No palpable masses, no organomegaly and abdominal bruits. Extremities: 2+ pulses in the upper extremities that are equal bilaterally, 2+ pulses in the lower extremities that are equal bilaterally. Non-edematous. Moves all extremities well, sensation to all extremities are noted. Skin: Warm, dry, intact. Course 2 Vital Signs: Vital signs: Vital Signs Temperature 98.6 F 09/15/23 19:36 Pulse Rate 73 09/15/23 19:36 Respiratory Rate 18 09/15/23 19:36 Blood Pressure 137/84 09/15/23 20:59 Pulse Oximetry 95 09/15/23 19:36 Oxygen Delivery Me thod Nasal Cannula 09/15/23 15:56 MDM - Chest Pain Medical Decision Making Physical exam completed and documented I did obtain a CBC, CMP serial cardiac enzymes and serial EKGs. The patient did have significantly elevated troponin levels and was started on heparin. I have contacted the hospitalist physician and requested admission for additional evaluation treatment and care. Lab Data I reviewed the patient's lab results. 09/15/23 04:00 09/15/23 04:00 Radiology Impressions Chest X-Ray 09/13/23 21:08 IMPRESSION: 1. Negative for infiltrate 2. Cardiomegaly. 3. Right-sided central venous catheter. Laboratory Results WBC 8.27 10^3/uL (3.29-11.43) 09/13/23 21:46 RBC 3.68 10^6/uL (3.85-5.65) L 09/13/23 21:46 Hgb 10.30 g/dL (11.27-16.99) L 09/13/23 21:46 Hct 32.1 % (36-47) L 09/13/23 21:46 MCV 87.2 fl (85-98) 09/13/23 21:46 MCH 28.0 pg (27-33) 09/13/23 21:46 MCHC 32.1 g/dL (30-55) 09/13/23 21:46 RDW 14.6 % (12.1-15.1) 09/13/23 21:46 Plt Count 198 10^3/cmm (157-399) 09/13/23 21:46 MPV 9.9 fL (7.4-10.4) 09/13/23 21:46 Neut % (Auto) 63.7 % 09/13/23 21:46 Lymph % (Auto) 22.7 % 09/13/23 21:46 Motley % (Auto) 7.9 % 09/13/23 21:46 Eos % (Auto) 4.4 % 09/13/23 21:46 Baso % (Auto) 1.1 % 09/13/23 21:46 Neut # (Auto) 5.27 10^3/uL (1.8-7.7) 09/13/23 21:46 Lymph # (Auto) 1.9 10^3/uL (0.8-4.8) 09/13/23 21:46 Motley # (Auto) 0.7 10^3/uL (0.2-0.9) 09/13/23 21:46 Eos # (Auto) 0.4 10^3/uL (0.0-0.8) 09/13/23 21:46 Baso # (Auto) 0.1 10^3/uL (0.0-0.1) 09/13/23 21:46 Nucleated RBC % (auto) 0 % 09/13/23 21:46 Nucleated RBCs # 0.0 /100WBC 09/13/23 21:46 Sodium 141 mmol/L (136-145) 09/13/23 21:46 Potassium 3.1 mmol/L (3.5-5.1) L 09/13/23 21:46 Chloride 101 mmol/L (98-107) 09/13/23 21:46 Carbon Dioxide 29 mmol/L (22-29) 09/13/23 21:46 Anion Gap 14.1 (5-19) 09/13/23 21:46 BUN 12 mg/dL (6-20) 09/13/23 21:46 Creatinine 1.8 mg/dL (0.5-0.9) H 09/13/23 21:46 GFR Calculation 31.7 mL/min (90-130) L 09/13/23 21:46 Glucose 148 mg/dL (65-115) H 09/13/23 21:46 Calculated Osmolality 295 mOsm/kg (285-295) 09/13/23 21:46 Calcium 8.4 mg/dL (8.5-10.5) L 09/13/23 21:46 Total Bilirubin 0.2 mg/dL (0.15-1.2) 09/13/23 21:46 AST 32 U/L (0-32) 09/13/23 21:46 ALT 30 U/L (0-33) 09/13/23 21:46 Alkaline Phosphatase 122 U/L (35-105) H 09/13/23 21:46 Troponin T Baseline 276 ng/L (0-10) H* 09/13/23 21:46 Troponin T 120 Minute 261.2 ng/L (0-10) H 09/13/23 23:09 Delta Troponin T -14.8 ABS# (0-10) L 09/13/23 23:09 Total Protein 6.8 g/dL (6.6-8.7) 09/13/23 21:46 Albumin 3.5 g/dL (3.5-5.2) 09/13/23 21:46 Globulin 3.3 g/dL (1.3-4.6) 09/13/23 21:46 All radiology interpretation(s) finalized by discharge Discharge Plan Discharge Patient Disposition: Admitted As Inpatient Admit Provider: Austin Che Clinical Impression: Acute non-ST elevation myocardial infarction (NSTEMI), Chest pain Condition: Stable Coding Level of Care Code ED Retail Receiving Clerk for Reji Chandler
[2023-09-13 21:53] LABS: Basophils # 0.1 10^3/uL (0.0-0.1); Basophils % 1.1 %; Eosinophils # 0.4 10^3/uL (0.0-0.8); Eosinophils % 4.4 %; Hematocrit 32.1 % (36-47); Lymphocytes # 1.9 10^3/uL (0.8-4.8); Lymphocytes % 22.7 %; Mean Corpuscular HGB Conc 32.1 g/dL (30-55); Mean Corpuscular Volume 87.2 fl (85-98); Mean Platelet Volume 9.9 fL (7.4-10.4); Monocytes # 0.7 10^3/uL (0.2-0.9); Monocytes % 7.9 %; Neutrophils # 5.27 10^3/uL (1.8-7.7); Neutrophils % 63.7 %; Nucleated Red Blood Cells % 0 %; Platelet Count 198 10^3/cmm (157-399); Red Blood Count 3.68 10^6/uL (3.85-5.65); Red Cell Distribution Width 14.6 % (12.1-15.1); White Blood Count 8.27 10^3/uL (3.29-11.43)
[2023-09-13 22:15] LABS: Alanine Aminotransferase 30 U/L (0-33); Albumin Level 3.5 g/dL (3.5-5.2); Alkaline Phosphatase 122 U/L (35-105); Anion Gap 14.1 (5-19); Aspartate Amino Transferase 32 U/L (0-32); Blood Urea Nitrogen 12 mg/dL (6-20); Calcium 8.4 mg/dL (8.5-10.5); Carbon Dioxide 29 mmol/L (22-29); Chloride 101 mmol/L (98-107); Creatinine Clr Calc Pharmacy 33.0277; Globulin 3.3 g/dL (1.3-4.6); Glomerular Filtration Rate 31.7 mL/min (90-130); Glucose 148 mg/dL (65-115); Osmolality Calculated 295 mOsm/kg (285-295); Potassium 3.1 mmol/L (3.5-5.1); Sodium 141 mmol/L (136-145); Total Bilirubin 0.2 mg/dL (0.15-1.2); Total Protein 6.8 g/dL (6.6-8.7)
[2023-09-13 22:29] LABS: Troponin(5th) Baseline 276 ng/L (0-10)
--- NOTE | 2023-09-13 23:21 | ECG_ITS ---
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 Measurements Intervals Mary D Rate: 77 P: 47 KS: 172 QRS: -15 QRSD: 115 T: 130 QT: 375 QTc: 427 Interpretive Statements SINUS RHYTHM POSSIBLE LEFT ATRIAL ENLARGEMENT [-0.1mV P-WAVE IN V1/V2] MODERATE INTRAVENTRICULAR CONDUCTION DELAY [110+ ms QRS DURATION] NONSPECIFIC ST & T-WAVE ABNORMALITY Compared to ECG 09/13/2023 21:08:43 Intraventricular conduction delay now present T-wave abnormality still present Electronically Signed On 09-14-2023 15:58:21 CDT by Riccardo Burch M.D. [email or web address].[employer]/[id number]
[2023-09-13] MEDS: heparin 5,000 unit/mL INJ 1 mL 3800 UNIT IVP (23:24)
[2023-09-13] MEDS: aspirin 81 mg Chew Tablet 324 MG PO (23:29)
[2023-09-13] MEDS: heparin drip 25,000 UNIT/500 ML PREMIX 15.1099999999999994 UNIT IV (23:29)
[2023-09-13 23:38] LABS: Troponin 5 2HR 261.2 ng/L (0-10); Troponin 5 2HR Delta -14.8 ABS# (0-10)
--- NOTE | 2023-09-13 23:40 | P.HP_ITS ---
Providers/Chief Complaint 2 Chief Complaint: cp left arm kidney pain karley pt today History of Present Illness Donita Aguilar is a 38 year old female with history of coronary disease, status post 3 stents, end-stage renal disease, diabetes, hypertension, presented today with chief complaint of chest pain. 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 She did not experience diaphoresis, nausea, vomiting but endorsing shortness of breath. She does not use oxygen at baseline. Does not smoke or drink alcohol these days. In the ER she has been diagnosed with non-STEMI Heparin drip initiated She is hypertensive Diastolic blood pressures above 110 I will start nitroglycerin drip admit to [facility] No active chest pain at the time of my evaluation Review of Systems 2 Const: Denies: fever(s) Eyes: Denies: change in vision ENMT: Denies: throat pain Card: Reports: chest pain Resp: Reports: dyspnea GI: Denies: abdominal pain : Denies: flank pain Musc: Denies: neck pain Skin/Breast: Denies: rash Neuro: Denies: headache(s) Psych: Denies: anxiety Medications/Allergies Home Medications Medication Instructions Recorded Confirmed Last Taken Type albuterol sulfate 90 mcg/actuation 2 puff inhalation Q8H PRN 02/07/22 07/03/22 Unknown History aerosol inhaler shortness of breath or wheezing bismuth subsalicylate 262 mg 2 tab PO Q1H PRN Heartburn 02/07/22 07/03/22 06/25/22 10:00 History tablet (Pepto-Bismol) aspirin 81 mg tablet,delayed 81 mg PO DAILY 04/06/22 07/03/22 2 Weeks Ago History release (Adult Low Dose Aspirin) ~06/11/22 carvedilol 6.25 mg tablet 6.25 mg PO BID #180 tabs 04/12/22 07/03/22 06/28/22 Rx clopidogrel 75 mg tablet 75 mg PO DAILY #90 tabs 04/12/22 07/03/22 06/28/22 Rx hydralazine 25 mg tablet 25 mg PO TID #270 tabs 04/12/22 07/03/22 06/28/22 Rx isosorbide mononitrate 10 mg tablet 10 mg PO TID #270 tabs 04/12/22 07/03/22 06/28/22 Rx furosemide 20 mg tablet 20 mg PO DAILY@0800 05/30/22 07/03/22 06/28/22 History insulin aspart U-100 100 unit/mL See Rx Instructions .Route 06/07/22 07/03/22 06/28/22 Rx (3 mL) subcutaneous pen (Novolog .COMPLEX #1 ea FlexPen U-100 Insulin aspart) blood-glucose meter,continuous #1 ea 06/12/22 07/03/22 Unknown Rx (Dexcom G6 Load Dropper) blood-glucose sensor (Dexcom G6 #3 ea 06/12/22 07/03/22 Unknown Rx Sensor device) blood-glucose transmitter (Dexcom #1 ea 06/12/22 07/03/22 Unknown Rx G6 Transmitter device) glucagon 1 mg solution for 1 mg SUBCUT Q15M PRN hypoglycemia 06/12/22 07/03/22 Unknown Rx injection (Glucagon Emergency Kit) #1 ea atorvastatin 40 mg tablet 40 mg PO BEDTIME 06/25/22 07/03/22 06/27/22 History insulin glargine 100 unit/mL (3 18 unit SUBCUT BID 06/25/22 07/03/22 06/28/22 History mL) subcutaneous pen (Lantus Solostar U-100 Insulin) ondansetron 4 mg disintegrating 4 mg PO TID PRN nausea and 06/25/22 07/03/22 Unknown Rx tablet vomiting #20 tabs phenazopyridine 200 mg tablet 200 mg PO TID PRN pain 6 doses #6 06/25/22 07/03/22 06/28/22 Rx (Pyridium) tabs Allergies Allergy/AdvReac Type Severity Reaction Status Date / Time acetaminophen AdvReac Mild ADR-Gastrointestinal Verified 03/22/24 21:15 Upset PFSH Acute 2 PFSH: Medical History Intractable nausea and vomiting Diabetic gastroparesis Acute cystitis with hematuria CKD (chronic kidney disease) stage 3, GFR 30-59 ml/min ERICA (acute kidney injury) CHF (congestive heart failure), NYHA class III Pulmonary hypertension CAD (coronary artery disease) Neurogenic bladder Acute kidney injury superimposed on chronic kidney disease Metabolic acidosis COVID-19 Tobacco dependence Drug abuse Anemia Community acquired pneumonia Acute hyperglycemia Esophagitis Complicated UTI (urinary tract infection) Transaminitis Long-term insulin use History of pancreatitis Hyperlipidemia Celiac disease Recurrent UTI Non-alcoholic fatty liver disease Arnold-Chiari malformation Diabetic gastroparesis -continue Reglan Diabetic neuropathy associated with type 1 diabetes mellitus Headache, common migraine, intractable, with status migrainosus Cystitis Pleural effusion 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 Uncontrolled type 1 diabetes mellitus Lymphadenitis Ureterolithiasis Pyelonephritis PID (pelvic inflammatory disease) Anxiety Sepsis Respiratory failure HTN (hypertension) Pancreatitis DKA (diabetic ketoacidoses) Migraine headache Chronic headache Surgical History History of lung surgery -s/p LLL lobectomy secondary to cavitary pneumonia (2017) History of endoscopy History of cholecystectomy Family History Grandfather Diabetes Other Heart disease Hypertension Social History Smoking and tobacco/nicotine status: former use of tobacco/nicotine Second hand smoke exposure: Yes Alcohol intake: never Substance/Drug Use: current Household members: children Housing: House Marital status: Single Current occupational status: unemployed Vitals/I&O/Wt Last Vital Signs Temp 97.9 F 09/13/23 21:07 Pulse 78 09/13/23 21:07 BP 134/78 09/13/23 21:07 Pulse Ox 99 09/13/23 21:07 O2 Del Method Room Air 09/13/23 21:07 Weight last 48 hrs Weight 53.977 kg Physical Exam 2 Narrative: Patient is chest pain-free Euvolemic GCS 15 nonfocal neuroexam Currently room air Hypertensive Family at the bedside No active heart murmur appreciated Pleasant and cooperative S1, S2 Data 09/13/23 21:46 09/13/23 21:46 A&P Assessment and plan (1) NSTEMI (non-ST elevated myocardial infarction): (2) Acute non-ST elevation myocardial infarction (NSTEMI): (3) Neurogenic bladder: (4) Diabetic neuropathy associated with type 1 diabetes mellitus: Qualifiers: Diabetes mellitus complication detail: diabetic polyneuropathy Qualified Code(s): E10.42 - Type 1 diabetes mellitus with diabetic polyneuropathy (5) ESRD (end stage renal disease): Plan Non-STEMI Established coronary disease Stents were placed 2 years ago at [facility], 3 stents were placed, patient is endorsing compliance with her medications She is not smoking or drinking alcohol these days Pain started after her dialysis today EKG not showing ischemic or infarctive changes Troponin significantly elevated Start heparin and nitroglycerin drip She is hypertensive with diastolic above 110 which will be considered as hypertensive emergency Continue diabetes regimen Patient is chest pain free at this point Please consult cardiology in the morning No acute indication for cardiac Abstract Clerk activation at this time Request D-dimer End-stage renal disease Her first dialysis session was on Saturday Diabetes related nephropathy Dialysis cath was placed at [place] Now she has moved to [place] to live with her parents has a chair time as well Saturday Next session of dialysis on Saturday unless plan for angiogram over the weekend Hypertensive emergency Start nitroglycerin drip Anemia of chronic disease: Stable Renal diet Full code Consistent carb diet with insulin patient takes Lantus 5 units along sliding scale Check A1c level Attestations 2 Medical Necessity Statement*: More than 2 midnights anticipated Diagnoses NSTEMI (non-ST elevated myocardial infarction) I21.4 Acute non-ST elevation myocardial infarction (NSTEMI) I21.4 Neurogenic bladder N31.9 Diabetic polyneuropathy associated with type 1 diabetes mellitus E10.42 Diabetes mellitus complication detail: diabetic polyneuropathy ESRD (end stage renal disease) N18.6
[2023-09-14] VITALS (57 sets, daily range): BP systolic 89–194; BP diastolic 54–109; PULSE 64–84; RESP 0–33; TEMP 36.6–37.3; O2SAT 91–100
[2023-09-14 00:26] LABS: D Dimer 0.85 ug/mLFEU (0-0.59)
--- NOTE | 2023-09-14 00:50 | USCV_ITS ---
Donita Aguilar Age: 38 Gender: F : 1985 Exam Date: 09/14/2023 07:04 Ordering Phys: Austin Che MD Technologist: Elian Boyer [place] [facility] [place]: nstemi BP: 134 / 77 HR: 74 Rhythm: Sinus Technical Quality: Adequate MEASUREMENTS (Male / Female) Normal Values 2D ECHO LVOT Diameter 1.8 cm LV Ejection Fraction MOD 2C 53.0 % LV Ejection Fraction 2C AL 55.4 % LA Diameter 4.1 cm RA Systolic Volume 4C AL 28.2 ml RA Systolic Volume 4C MOD 28.4 ml Aorta at Sinotubular Diameter 1.9 cm IVC Diameter 1.5 cm M-MODE LA Ao Ratio MM 1.4 MV E Point Septal Separation 1.4 cm AV Cusp Separation MM 1.7 cm DOPPLER AV Peak Velocity 139.0 cm/s LVOT Peak Velocity 99.0 cm/s AV Area Cont Eq vti 1.7 cm squared AV Area Cont Eq pk 1.8 cm squared MV Peak Velocity 136.0 cm/s MV Area PHT 4.9 cm squared Mitral E to A Ratio 1.5 TR Peak Velocity 215.0 cm/s TR Peak Gradient 18.5 mmHg TR Mean Velocity 159.0 cm/s TR Mean Gradient 11.5 mmHg TR Velocity Time Integral 53.0 cm PV Peak Velocity 95.0 cm/s RV Ejection Time 0.3 s FINDINGS Left Ventricle Left ventricle is normal in size. LV systolic function is normal with EF 50 to 55%. No regional wall motion abnormalities are seen. Grade 2 diastolic dysfunction Right Ventricle Normal in size and function Right Atrium Normal in size. Echogenic structure seen in right atrium. Can be a catheter Left Atrium Dilated Mitral Valve Structurally normal mitral valve. Mild mitral regurgitation. Aortic Valve Structurally normal aortic valve. No significant stenosis or regurgitation. Tricuspid Valve Mild tricuspid regurgitation. Insufficient TR jet to calculate RVSP. Pulmonic Valve Trace pulmonic regurgitation. Pericardium Trace pericardial effusion. Aorta Normal in size IVC Appears to be normal CONCLUSIONS LV systolic function is normal with EF of 50 to 55%. Grade 2 diastolic dysfunction. Echogenic structure seen in right atrium. Can be a catheter Left atrial dilation Mild mitral regurgitation Mild tricuspid regurgitation. Trace pulmonic regurgitation Trace pericardial effusion. Compared to prior echocardiogram from 01/27/2024, patient now is noted to have grade 2 diastolic dysfunction Riccardo Burch MD (Electronically Signed) Final Date: 14 September 2023 11:52 S
[2023-09-14] MEDS: heparin drip 25,000 UNIT/500 ML PREMIX 15 UNIT IV (01:29)
[2023-09-14] MEDS: nitroglycerin drip 50 MG/250 ML PREMIX IV (01:44)
--- NOTE | 2023-09-14 03:20 | ECG_ITS ---
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 Measurements Intervals Jackson Rate: 75 P: -13 AL: 175 QRS: -15 QRSD: 115 T: 129 QT: 406 QTc: 453 Interpretive Statements SINUS RHYTHM LOW QRS VOLTAGE IN EXTREMITY LEADS [QRS DEFLECTION < 0.5 mV IN LIMB LEADS] MODERATE INTRAVENTRICULAR CONDUCTION DELAY [110+ ms QRS DURATION] NONSPECIFIC ST ELEVATION [0.05+ mV ST ELEVATION] ABNORMAL QRS-T ANGLE [QRS-T AXIS DIFFERENCE > 60] Compared to ECG 09/13/2023 23:21:00 Low QRS voltage now present ST (T wave) deviation now present T-wave abnormality no longer present Electronically Signed On 09-14-2023 15:58:13 CDT by Riccardo Burch M.D. [id number]
[2023-09-14] MEDS: morphine 4 mg/mL SDV 1 mL 2 MG IVP ×3 (03:40→20:18)
[2023-09-14 05:37] LABS: Troponin 5 6HR Delta -13.1 ng/L (0-12)
[2023-09-14 05:38] LABS: Troponin 5 6HR 262.9 ng/L (0-10)
[2023-09-14 06:22] LABS: Basophils # 0.1 10^3/uL (0.0-0.1); Basophils % 0.8 %; Eosinophils # 0.5 10^3/uL (0.0-0.8); Hematocrit 28.3 % (36-47); Lymphocytes # 2.1 10^3/uL (0.8-4.8); Lymphocytes % 28.6 %; Mean Corpuscular HGB Conc 31.8 g/dL (30-55); Mean Corpuscular Hemoglobin 28.3 pg (27-33); Monocytes # 0.7 10^3/uL (0.2-0.9); Monocytes % 9.1 %; Neutrophils # 3.95 10^3/uL (1.8-7.7); Neutrophils % 54.2 %; Nucleated Red Blood Cells % 0 %; Platelet Count 176 10^3/cmm (157-399); Red Blood Count 3.18 10^6/uL (3.85-5.65); Red Cell Distribution Width 14.8 % (12.1-15.1); White Blood Count 7.28 10^3/uL (3.29-11.43)
[2023-09-14 06:23] LABS: Glucose Point of Care 226 mg/dL (70-110)
[2023-09-14 06:35] LABS: Partial Thromboplastin Time 49.2 SECONDS (23.9-36.7)
[2023-09-14 06:38] LABS: Anion Gap 9.6 (5-19); Blood Urea Nitrogen 17 mg/dL (6-20); Calcium 7.9 mg/dL (8.5-10.5); Carbon Dioxide 34 mmol/L (22-29); Chloride 103 mmol/L (98-107); Creatinine Clr Calc Pharmacy 23.2387; Glomerular Filtration Rate 20.7 mL/min (90-130); Glucose 226 mg/dL (65-115); Magnesium 1.7 mg/dL (1.7-2.3); Osmolality Calculated 305 mOsm/kg (285-295); Potassium 3.6 mmol/L (3.5-5.1); Sodium 143 mmol/L (136-145)
[2023-09-14 06:45] LABS: Estmated Average Glucose 140; Hemoglobin A1C 6.5 % (4.0-6.0)
[2023-09-14] MEDS: heparin 5,000 unit/mL INJ 1 mL IV ×3 (06:47→21:57)
[2023-09-14 06:48] LABS: Phosphorus 4.1 mg/dL (2.5-4.5)
[2023-09-14] MEDS: clopidogrel 75 mg Tablet PO (09:17)
[2023-09-14] MEDS: aspirin 81 mg EC Tablet PO (09:17)
[2023-09-14] MEDS: sennosides-docusate Tablet 1 TAB PO (09:17)
[2023-09-14] MEDS: hyDRALAzine 25 mg Tablet PO ×2 (09:20→20:47)
[2023-09-14] MEDS: sevelamer 800 mg Tablet PO ×2 (09:20→20:47)
[2023-09-14] MEDS: insulin lispro 100 unit/1 mL SUBCUT ×2 (09:21→20:47)
[2023-09-14] MEDS: isosorbide mononitrate 20 mg Tablet 10 MG PO (09:22)
--- NOTE | 2023-09-14 09:32 | PC.PHAR ---
Addendum entered by Kyung Guerra 09/14/23 09:37: ext doesnt show medications filled recently or mg's pts mother states the pt takes Original Note: pt states her mother enoch takes care of her medications-pts mother enoch states the pt is only taking the medications entered states the pt has been out of the hospital for a week from [facility]-states the pt was there for a month-pts mother states [facility] changed all her meds and states the pt is only taking what is entered now-
[2023-09-14] MEDS: carvedilol 6.25 mg Tablet PO ×2 (09:45→17:30)
--- NOTE | 2023-09-14 11:23 | P.CONIM_ITS ---
Providers/Reason For Consult 2 Consulting Physician/Specialty*: Riccardo Burch MD/ Cardiology Reason for Consult*: NSTEMI Requesting Physician: Dr Guevara Attending Physician: Barbara Guevara MD History of Present Illness History of Present Illness Donita Aguilar is a 38 year old female With past medical history of diabetes, hypertension, CAD with previous stents , End-stage renal disease on dialysis who presented to hospital with chest pain last evening. EKG shows sinus rhythm with nonspecific ST-T wave changes. Initial troponin was elevated at 276 but has not trended up significantly. Since coming to hospital, she has been having on and off chest pain episodes. Says it is substernal and severe. ECHO shows normal LV systolic function. Review of Systems 2 Const: Denies: fever(s) Eyes: Denies: change in vision ENMT: Denies: throat pain Card: Reports: chest pain Resp: Reports: dyspnea GI: Denies: abdominal pain : Denies: flank pain Musc: Denies: neck pain Skin/Breast: Denies: rash Neuro: Denies: headache(s) Psych: Denies: anxiety Medications/Allergies Home Medications Medication Instructions Recorded Confirmed Last Taken Type albuterol sulfate 90 mcg/actuation 2 puff inhalation Q6H PRN 02/07/22 09/14/23 Unknown History aerosol inhaler shortness of breath or wheezing clopidogrel 75 mg tablet 75 mg PO DAILY #90 tabs 04/12/22 09/14/23 06/28/22 Rx insulin aspart U-100 100 unit/mL See Rx Instructions .Route 06/07/22 09/14/23 06/28/22 Rx (3 mL) subcutaneous pen (Novolog .COMPLEX #1 ea FlexPen U-100 Insulin aspart) blood-glucose meter,continuous #1 ea 06/12/22 09/14/23 Unknown Rx (Dexcom G6 Cloth Weigher) blood-glucose sensor (Dexcom G6 #3 ea 06/12/22 09/14/23 Unknown Rx Sensor device) blood-glucose transmitter (Dexcom #1 ea 06/12/22 09/14/23 Unknown Rx G6 Transmitter device) insulin glargine 100 unit/mL (3 5 unit SUBCUT BEDTIME 06/25/22 09/14/23 06/28/22 History mL) subcutaneous pen (Lantus Solostar U-100 Insulin) amlodipine 5 mg tablet 5 mg PO DAILY 09/14/23 09/14/23 Unknown History atorvastatin 20 mg tablet 20 mg PO BEDTIME 09/14/23 09/14/23 Unknown History fluticasone furoate 100 1 inh inhalation DAILY 09/14/23 09/14/23 Unknown History mcg-vilanterol 25 mcg/dose inhalation powder (Breo Ellipta) metoprolol succinate 100 mg 100 mg PO DAILY 09/14/23 09/14/23 Unknown History tablet,extended release 24 hr nitroglycerin 0.4 mg sublingual 0.4 mg sublingual Q5M PRN Chest 09/14/23 09/14/23 Unknown History tablet (Nitrostat) Pain Allergies Allergy/AdvReac Type Severity Reaction Status Date / Time acetaminophen AdvReac Mild ADR-Gastrointestinal Verified 09/13/23 21:15 Upset Current Medications Generic Name Dose Route Start Last Admin Trade Name Freq PRN Reason Stop Dose Admin Aspirin 81 mg 09/14/23 09:00 09/14/23 09:17 Aspirin 81 Mg Ec Tablet PO 81 mg DAILY SHAY Administration Carvedilol 6.25 mg 09/14/23 09:00 09/14/23 09:45 Carvedilol 6.25 Mg Tablet PO 6.25 mg BID SHAY Administration Clopidogrel Bisulfate 75 mg 09/14/23 09:00 09/14/23 09:17 Clopidogrel 75 Mg Tablet PO 75 mg DAILY SHAY Administration Heparin Sodium (Porcine) 0 unit 09/14/23 01:19 09/14/23 06:47 Heparin 5,000 Unit/Ml Inj 1 Ml IV 1,100 unit PRN PRN Administration Heparin weight-base protocol Protocol Hydralazine HCl 25 mg 09/14/23 09:00 09/14/23 09:20 Hydralazine 25 Mg Tablet PO 25 mg TID SHAY Administration Nitroglycerin/Dextrose 50 mg in 250 mls @ 0 mls/hr 09/14/23 00:50 09/14/23 03:50 Nitroglycerin Drip IV 30 mcg/min .Q0M SHAY 9 mls/hr Titration Protocol Per Protocol Heparin Sodium/Sodium Chloride 25,000 unit in 500 mls @ 0 mls/hr 09/14/23 01:30 09/14/23 06:49 Heparin Drip IV 14.62 unit/kg/hr .Q0M SHAY 16 mls/hr Titration Protocol Per Protocol Insulin Human Lispro 0 unit 09/14/23 08:00 09/14/23 09:21 Insulin Lispro 100 Unit/1 Ml SUBCUT 10 unit TIDWM SHAY Administration Protocol Isosorbide Mononitrate 10 mg 09/14/23 09:00 09/14/23 09:22 Isosorbide Mononitrate 20 Mg Tablet PO 10 mg TID SHAY Administration Senna/Docusate Sodium 1 tab 09/14/23 09:00 09/14/23 09:17 Sennosides-Docusate Tablet PO 1 tab DAILY SHAY Administration Sevelamer Carbonate 800 mg 09/14/23 09:00 09/14/23 09:20 Sevelamer 800 Mg Tablet PO 800 mg TID SHAY Administration PFSH Acute 2 PFSH: Medical History Intractable nausea and vomiting Diabetic gastroparesis Acute cystitis with hematuria CKD (chronic kidney disease) stage 3, GFR 30-59 ml/min ERICA (acute kidney injury) CHF (congestive heart failure), NYHA class III Pulmonary hypertension CAD (coronary artery disease) Neurogenic bladder Acute kidney injury superimposed on chronic kidney disease Metabolic acidosis COVID-19 Tobacco dependence Drug abuse Anemia Community acquired pneumonia Acute hyperglycemia Esophagitis Complicated UTI (urinary tract infection) Transaminitis Long-term insulin use History of pancreatitis Hyperlipidemia Celiac disease Recurrent UTI Non-alcoholic fatty liver disease Arnold-Chiari malformation Diabetic gastroparesis -continue Reglan Diabetic neuropathy associated with type 1 diabetes mellitus Headache, common migraine, intractable, with status migrainosus Cystitis Pleural effusion 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 Uncontrolled type 1 diabetes mellitus Lymphadenitis Ureterolithiasis Pyelonephritis PID (pelvic inflammatory disease) Anxiety Sepsis Respiratory failure HTN (hypertension) Pancreatitis DKA (diabetic ketoacidoses) Migraine headache Chronic headache Surgical History History of lung surgery -s/p LLL lobectomy secondary to cavitary pneumonia (2017) History of endoscopy History of cholecystectomy Family History Grandfather Diabetes Other Heart disease Hypertension Social History Smoking and tobacco/nicotine status: former use of tobacco/nicotine Second hand smoke exposure: Yes Alcohol intake: never Substance/Drug Use: current Household members: children Housing: House Marital status: Single Current occupational status: unemployed Vitals/I&O/Wt Last Vital Signs Temp 97.9 F 09/14/23 11:07 Pulse 69 09/14/23 11:07 Resp 17 09/14/23 04:00 BP 128/80 09/14/23 11:07 Pulse Ox 96 09/14/23 11:07 O2 Del Method Room Air 09/14/23 11:07 09/13/23 09/14/23 09/14/23 22:59 06:59 14:59 Intake Total 1065.05 / 1065.05 Balance 1065.05 / 1065.05 Weight last 48 hrs Weight 123 lb 6.4 oz Weight 120 lb 9.6 oz Weight 120 lb 9.6 oz Weight 119 lb Physical Exam 2 Narrative: GENERAL: Patient is alert, awake and oriented x3. [] NECK: No jugular vein distension. [] HEENT: No cyanosis. No icterus. No pallor. [] HEART: Regular S1 and S2. No murmur, rub or gallop. [] LUNGS: Clear to auscultate bilaterally. [] CENTRAL NERVOUS SYSTEM: Grossly nonfocal. [] EXTREMITIES: Lower extremities with 1+ edema bilaterally Data 09/15/23 04:00 09/15/23 04:00 A&P Assessment and plan (1) NSTEMI (non-ST elevated myocardial infarction): (2) Acute non-ST elevation myocardial infarction (NSTEMI): (3) Neurogenic bladder: (4) Diabetic neuropathy associated with type 1 diabetes mellitus: Qualifiers: Diabetes mellitus complication detail: diabetic polyneuropathy Qualified Code(s): E10.42 - Type 1 diabetes mellitus with diabetic polyneuropathy (5) ESRD (end stage renal disease): Plan Patient has presented with typical chest pain consistent with unstable angina. Troponins are elevated but have not trended up significantly. Plan for coronary angiogram for tomorrow NPO past midnight Continue aspirin, plavix and heparin gtt Thank you for involving us with care of this patient. We will continue to follow. Please call with questions Consult Attestations 2 Medical Necessity Statement: Care expected to cross 2 midnights. Coding Level of Care Code Acute Code for Chg Fwd Diagnoses NSTEMI (non-ST elevated myocardial infarction) I21.4 Acute non-ST elevation myocardial infarction (NSTEMI) I21.4 Neurogenic bladder N31.9 Diabetic polyneuropathy associated with type 1 diabetes mellitus E10.42 Diabetes mellitus complication detail: diabetic polyneuropathy ESRD (end stage renal disease) N18.6
[2023-09-14] MEDS: dextrose 5 % 500 ML 100 ML IV (12:08)
[2023-09-14 12:12] LABS: Glucose Point of Care 36 mg/dL (70-110)
[2023-09-14 12:12] LABS: Glucose Point of Care 33 mg/dL (70-110)
[2023-09-14 12:12] LABS: Glucose Point of Care 82 mg/dL (70-110)
[2023-09-14 12:12] LABS: Glucose Point of Care 33 mg/dL (70-110)
[2023-09-14 12:53] LABS: Glucose Point of Care 67 mg/dL (70-110)
[2023-09-14] MEDS: glucagon 1 mg/mL KIT 1 mL IM (13:06)
[2023-09-14 13:15] LABS: Glucose Point of Care 138 mg/dL (70-110)
[2023-09-14 14:02] LABS: Glucose Point of Care 205 mg/dL (70-110)
--- NOTE | 2023-09-14 14:05 | ECG_ITS ---
[facility] Test Date: 2023-09-14 Pat Name: Donita Aguilar Department: Room: 104 Gender: Female Personnel Research Psychologist: : 1985 Requested By: Barbara Guevara Order Number: [id number] Faviola MD: Riccardo Burch M.D. Measurements Intervals [place] Rate: 66 P: 29 OR: 160 QRS: -16 QRSD: 105 T: 133 QT: 457 QTc: 482 Interpretive Statements SINUS RHYTHM INFERIOR MYOCARDIAL INFARCTION , OF INDETERMINATE AGE [40+ ms Q WAVE AND/OR ST/T ABNORMALITY IN II/aVF] MODERATE T-WAVE ABNORMALITY, CONSIDER LATERAL ISCHEMIA [-0.1+ mV T-WAVE IN I/aVL/V5/V6] Compared to ECG 09/14/2023 03:20:13 Myocardial infarct finding now present T-wave abnormality now present Possible ischemia now present Intraventricular conduction delay no longer present ST (T wave) deviation no longer present Electronically Signed On 09-14-2023 15:57:36 CDT by Riccardo Burch M.D. [email or web address]
[2023-09-14 14:21] LABS: Partial Thromboplastin Time 37.9 SECONDS (23.9-36.7)
[2023-09-14] MEDS: heparin drip 25,000 UNIT/500 ML PREMIX 18 UNIT IV (14:43)
--- NOTE | 2023-09-14 14:48 | P.PN_ITS ---
Subjective 2 Subjective: Attempts to wean down nitroglycerin drip this afternoon led to recurrence of chest pain. Additionally patient reported chest pain with minimal exertion from bed to bedside commode. Repeat EKG and troponin series ordered. No new changes on EKG per my interpretation. Awaiting troponin trend. Added morphine. Patient was hypoglycemic with blood sugar in the 60s this afternoon.. Received glucagon following which blood sugar is improved at 123. Medications: Reviewed: Yes Vitals/I&O/Wt Last Vital Signs Temp 97.9 F 09/14/23 11:07 Pulse 69 09/14/23 11:07 Resp 17 09/14/23 04:00 BP 128/80 09/14/23 11:07 Pulse Ox 96 09/14/23 11:07 O2 Del Method Room Air 09/14/23 11:07 09/13/23 09/14/23 09/14/23 22:59 06:59 14:59 Intake Total 1065.05 / 1065.05 707.242 / 707.242 Balance 1065.05 / 1065.05 707.242 / 707.242 Weight last 48 hrs Weight 55.973 kg Weight 54.703 kg Weight 54.703 kg Weight 53.977 kg Physical Exam 2 Narrative: General: Complaining of chest pain currently HEENT: PERRLA, pupils bilaterally equal and reactive, pallors not present Chest: Normal vesicular breath sounds, no added sounds, equal good air entry bilaterally CVS: S1-S2 regular, no murmurs, no tachycardia, no gallops, no rubs Abdomen: Soft, nontender, no organomegaly, bowel sounds present Neuro: No focal deficits, no facial deformity, AO x3, power 5/5 in all limbs Data 09/14/23 06:15 09/14/23 06:15 A&P Assessment and plan (1) NSTEMI (non-ST elevated myocardial infarction): (2) Acute non-ST elevation myocardial infarction (NSTEMI): (3) Neurogenic bladder: (4) Diabetic neuropathy associated with type 1 diabetes mellitus: Qualifiers: Diabetes mellitus complication detail: diabetic polyneuropathy Qualified Code(s): E10.42 - Type 1 diabetes mellitus with diabetic polyneuropathy (5) ESRD (end stage renal disease): Plan Non-STEMI Established coronary disease Stents were placed 2 years ago at [facility], 3 stents were placed, patient is endorsing compliance with her medications She is not smoking or drinking alcohol these days Pain started after her dialysis today EKG not showing ischemic or infarctive changes Troponin significantly elevated Start heparin and nitroglycerin drip She is hypertensive with diastolic above 110 which will be considered as hypertensive emergency Continue diabetes regimen Patient is chest pain free at this point Please consult cardiology in the morning No acute indication for cardiac [place] Ramp Agent activation at this time Request D-dimer End-stage renal disease Her first dialysis session was on Saturday Diabetes related nephropathy Dialysis cath was placed at [place] Now she has moved to [place] to live with her parents has a chair time as well Saturday Next session of dialysis on Saturday unless plan for angiogram over the weekend Hypertensive emergency Start nitroglycerin drip Anemia of chronic disease: Stable Renal diet Full code Consistent carb diet with insulin patient takes Lantus 5 units along sliding scale Check A1c level Plan for today. Cardiology consulted in view of NSTEMI. Plan for likely cardiac cath tomorrow. Continue heparin drip, aspirin 81 mg daily, atorvastatin 80 mg p.o. daily, Coreg, Plavix 75 mg p.o. daily. Echo showing LVEF of 50 to 55%, grade 2 diastolic dysfunction. Continue nitroglycerin infusion, did not tolerate weaning down. Add morphine 2 mg IV every 4 hours as needed for chest pain. Repeat EKG and troponin series now as above. Discontinue scheduled insulin as patient hypoglycemic. Changed to mild sliding scale. Check HbA1c. Currently blood sugar is improving after using glucagon IM. She had 1 episode of diarrhea. Past history of C. difficile. Stool C. difficile PCR has been ordered. Plan to transfer to ICU in view of soft blood pressure, closer monitoring as may need pressor support alongside of nitroglycerin gtt. Attestations 2 Medical Necessity Statement*: Ongoing treatment for NSTEMI Coding Level of Care Code Acute Code for [facility] Diagnoses NSTEMI (non-ST elevated myocardial infarction) I21.4 Acute non-ST elevation myocardial infarction (NSTEMI) I21.4 Neurogenic bladder N31.9 Diabetic polyneuropathy associated with type 1 diabetes mellitus E10.42 Diabetes mellitus complication detail: diabetic polyneuropathy ESRD (end stage renal disease) N18.6
--- NOTE | 2023-09-14 15:00 | PC.NURSE ---
chest pain pt started to have chest pain. ekg taken, notified doctors. orders received for icu transfer, cardiac cath.
[2023-09-14 15:26] LABS: Troponin(5th) Baseline 268 ng/L (0-10)
--- NOTE | 2023-09-14 15:31 | XACV_ITS ---
Exam Room: [facility] Ht: 152 cm Wt: 56 kg BSA: 1.55 m2 Gender: Female : 1985 Any Known Allergies: Other Exam Priority: Routine Procedure(s): Procedure Description: Diagnostic procedure Procedure Description: PCI procedure Procedure Description: Left Heart Catheterization Procedure Description: Left ventriculography Procedure Description: PTCA Procedure Description: Miscellaneous Procedure Description: Angio-Seal Procedure Description: ACT Procedure Description: Coronary Angiography Diagnostic Cath Status: Urgent Diagnostic Findings * Left Main has no significant disease. * Left Anterior Descending has patent prior stent. Diagonal artery also has patent prior stent. Diagonal artery has a mid to distal vessel 40-50% stenosis. . * Right Coronary Artery is chronically occluded in the midsegment. Has strong collaterals from LAD system.. * Left circumflex artery is small to medium sized. Mid Circumflex: obstructive 95-99% stenosis, KORIN: 2 flow. Possible collaterals. * Coronary angiography shows right dominance. PCI Status: Urgent PCI Indication: NSTE - ACS Interventional Findings * PROCEDURE DETAIL: We engaged left main artery with XB 3.5 guide catheter. IV heparin was administered to maintain anticoagulation. We attempted to cross subtotally occluded mid left circumflex artery that was small to medium in size with 0.014 run-through guidewire. We were unable to cross it. We then used a senior web developer 50 guidewire and were able to cross into the distal vessel. We ballooned the stenosis with 2.0 x 8 mm semicompliant balloon. However it caused dissection. We attempted to advance larger balloon however because of acute bend of ostial circumflex, balloon could not be advanced. Patient was chest pain-free and no EKG changes were noted. Possible collaterals were also noted to the vessel. As patient was clinically stable, we aborted further attempts at revascularization and treated medically. Patient left the mechanical laboratory technician in a stable condition. . * Mid Circumflex: 70% stenosis treated with a AB MINI TREK 2.00X8 RX BALLOON. 0% residual stenosis, KORIN: 3 flow. Conclusions 1. Subtotal occlusion of mid left circumflex artery. Balloon angioplasty was performed 2. however 3. it could not be revascularized as had 4. dissection of vessel. Given size of vessel, flow still present and patient's stability, further attempts at revascularization were aborted. Complicating the situation was an acute bend at take off of the left circumflex artery that did not allow large balloons to be advanced. . 5. Mid Circumflex was treated with a Balloon. Recommendations * Continue dual antiplatelet therapy with aspirin and plavix. * Can start on Isosorbide mononitrate. * Close cardiology follow up in 2 weeks. Interventional RX Recommendation: PCI w/o planned CABG Diagnostic RX Recommendation: PCI w/o planned CABG Anticoagulation: Heparin Pressures Phase:Rest AO : 127 / 96 ( 112 ) @ 5:12:00 PM 151 / 80 ( 108 ) @ 5:18:00 PM 152 / 79 ( 109 ) @ 5:18:00 PM 122 / 74 ( 90 ) @ 5:20:00 PM 110 / 80 ( 93 ) @ 5:26:00 PM 121 / 78 ( 98 ) @ 5:33:00 PM 122 / 76 ( 98 ) @ 5:37:00 PM 109 / 72 ( 90 ) @ 5:39:00 PM 126 / 81 ( 102 ) @ 5:44:00 PM 119 / 78 ( 99 ) @ 5:45:00 PM LV : 154 / 0 / 29 @ 5:17:00 PM 153 / 0 / 29 @ 5:18:00 PM Valves Phase:DefaultPhase AV : 0.0 @ 5::31 PM 0.0 @ 5::31 PM AV Mean Gradient: 0.0 @ 5::31 PM 0.0 @ 5::31 PM Clinical Evaluation EBL: 5mL-10mL Procedural Details Procedure Consent Obtained. Current Diagnosis : NSTEMI. Pre-Procedure Time Out. Identified patient by full name and date of as verbalized by the patient/guarantor. Does the consent match the physician's order: Yes. Accurate & Complete Informed Consent: Yes. Inpatient/Outpatient History & Physical on Chart: Yes. If H&P is completed, is and addenduem needed: No; If yes, is the addendum complete: N/A. Visualize and Verify Site with Patient/Guarantor: N/A. Relevant Radiology Images available: Yes. Pre-op teaching completed and patient verbalized understanding. The risks, benefits, and alternatives of sedation and/or procedure were discussed by physician. The patient agrees to continue. Procedure started. [facility] Clinical Fraility Score: 4: Vulnerable. Sheriff Officer Indications: ACS > 24 hours. Chest Pain Symptom Assessment: Typical Angina Symptoms. Correct patient, site and procedure confirmed by cath team. Current diagnosis: NSTEMI. PERRLA. Strong, equal hand clinical applications specialist bilaterally. Lungs clear x 5 lobes. IV Site on Arrival: 22 gauge in the left wrist. IV Fluids: 0.9% NaCl at KVO. 0 mL infused prior to mechanical laboratory technician. Oxygen started at 2liters/min via nasal canula. bilateral groins was prepped with chloroprep then draped in the usual sterile fashion. Baseline sample Acquired. HR: 69 BPM. Physician arrived. Physician scrubbed in. Immediate Pre-Procedure Time Out. Correct Patient: Yes; Correct Procedure: Yes; Correct Site: Yes; Correct Patient Position: Yes; Correct Supplies: Yes; Dried Flammable Prep: Yes; Blood Products Available: N/A;. Lidocaine 1% infiltrated to the right groin. Arterial access obtained. Wire unable to advance. Wire and needle removed. Arterial access obtained with micropuncture set. A 5 mexican JL4 catheter in over wire. Multiple views taken of left coronary artery. Catheter removed over the standard wire. A 5 mexican JR4 catheter in over wire. ACT drawn. Results 192 seconds. Therapeutic limits - pre-heparin administration 90-150 seconds and monitoring heparin during a vascular procedure >250 seconds. Multiple views taken of right coronary artery. EDP Sample taken: LV 154/0,29; HR: 68 BPM; SpO2: 100%. Pullback taken: LV 153/0,29; AO 151/80(108); Mean: 0mmHg, Peak to Peak: 0mmHg, SEP: 16sec/min; HR: 68 BPM; SpO2: 100%. Catheter removed over the standard wire. 6 mexican XB 3 guide catheter was inserted over the wire. Runthrough guidewire was advanced through the guide catheter to lesion in the mid Circ. 2.5x20mm Balloon inserted to lesion in the mid Circ. Balloon out. Wire out. Recovery Auditor 50 guidewire was advanced through the guide catheter to lesion in the mid Circ. 2.0x8mm Balloon inserted to lesion in the mid Circ. Inflation number : 1 A AB MINI TREK 2.00X8 RX BALLOON was prepped and advanced across the Mid CX , then inflated to 8 ROSIE for 0:14 seconds. Inflation number: 2 The AB MINI TREK 2.00X8 RX BALLOON was reinflated across the Mid CX, to 4 ROSIE for 0:09 seconds. Inflation number: 3 The AB MINI TREK 2.00X8 RX BALLOON was reinflated across the Mid CX, to 6 ROSIE for 0:06 seconds. Inflation number: 4 The AB MINI TREK 2.00X8 RX BALLOON was reinflated across the Mid CX, to 6 ROSIE for 0:07 seconds. Balloon out. A new Runthrough wire inserted through the catheter and advanced to the Mid CX. Recovery Auditor 50 wire removed. 2.5x20mm Balloon inserted to lesion in the mid Circ. Balloon out. 2.00p57wm Balloon inserted to lesion in the mid Circ. Balloon out. Results checked. Wire out. Guide catheter out. A Right femoral angiogram was performed to determine safe placement of closure device. Medication's Wasted: Other = Fentanyl 100 mcg. Medication's Wasted: Heparin = 3000 units. Medication's Wasted: Lidocaine 1% = 10 mL. Total IV fluids: 45 mL. A Angio-Seal VIP ([facility]) was successful obtaining hemostatsis at the Right Femoral artery insertion site. Post Procedure: Pulses reassessed and unchanged. PERRLA. Strong, equal hand clinical applications specialist bilaterally. No VTE prophylaxis required. Complications: None. Estimated blood loss: 5mL-10mL. Responsiveness - Normal response to verbal stimuli; alert and oriented, PERRLA. Airway - Unaffected, no intervention required; spontaneous ventilation. Circulation: W/N/L, pulses unchanged. Nausea/Vomiting: No. Procedure completed. Patient transferred by bed to ICU. Vital chart was stopped. Access Site Site: Right Femoral artery Sheath Size: 6 Fr Hemostasis Method: Angio-Seal VIP ([facility]) Hemostasis Success: Successful Procedure Medications Start: 4:00 PM Stop: 4:00 PM Medication: Versed Amount: 1 mg Route: I.V. Start: 4:13 PM Stop: 4:13 PM Medication: Versed Amount: 1 mg Route: I.V. Start: 4:20 PM Stop: 4:20 PM Medication: Heparin Amount: 3000 units Route: I.V. I, the attending physician, have reviewed and verified all procedure medications. Yes, all medications given per verbal order History/Risk Factors Hypertension: Yes Dyslipidemia: No Peripheral Arterial Disease (PAD): Yes Myocardial Infarction (HI): No Obesity: No Renal Disease: No Tobacco Use: Current/Recent(w/in 1 year) Prior Interventions PCI: Yes CABG: No Valve Surgery: No Report Signatures Finalized by Riccardo Burch MD on 09/22/2023 08:42 AM
--- NOTE | 2023-09-14 15:48 | W.PM.OPSUD ---
Surgery/Procedure H&P Update DATE OF PROCEDURE: September 14, 2023 DATE H&P PERFORMED: 09/14/23 H&P UPDATE INFORMATION: I have reviewed H&P completed within last 30 days, I have examined patient prior to procedure and Changes to prior documentation as noted here CHANGES TO PREVIOUS DOCUMENTATION: Initial plan was to perform coronary angiogram with possible percutaneous coronary intervention tomorrow however patient started having chest pain again which was severe. Not completely relieved with nitro drip. We will proceed with coronary angiogram today. PREOP DIAGNOSIS: NSTEMI PRIMARY INDICATION FOR PROCEDURE: NSTEMI PLANNED PROCEDURE: Left heart cath with possible percutaneous coronary intervention PATIENT REASSESSED PRIOR TO SEDATION, WITH NO CHANGE NOTED: Yes PHYSICAL EXAM: alert, oriented x 3, clear to auscultation bilaterally and regular rate & rhythm AIRWAY EVAL/ANESTHESIA PLAN: normal airway, ASA III, Local Anesthesia, Risks, benefits & alternatives of sedation and/or procedure discussed and Patient agrees to continue as planned ADDITIONAL INFORMATION: Moderate sedation
--- NOTE | 2023-09-14 15:53 | PC.NURSE ---
report given to screedman/laborer at bedside. pt taken to screedman/laborer now.
[2023-09-14 17:20] LABS: Glucose Point of Care 163 mg/dL (70-110)
--- NOTE | 2023-09-14 18:09 | ECG_ITS ---
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 Measurements Intervals [place] Rate: 70 P: 58 NC: 184 QRS: -24 QRSD: 110 T: 86 QT: 455 QTc: 491 Interpretive Statements SINUS RHYTHM BORDERLINE LEFT AXIS DEVIATION [QRS AXIS < -20] NONSPECIFIC T-WAVE ABNORMALITY PROLONGED QT INTERVAL Compared to ECG 09/14/2023 14:20:21 Prolonged QT interval now present Myocardial infarct finding no longer present Possible ischemia no longer present T-wave abnormality still present Electronically Signed On 09-15-2023 23:59:33 CDT by Riccardo Burch M.D. [id number]
[2023-09-14 19:52] LABS: Troponin 5 2HR 259.2 ng/L (0-10); Troponin 5 2HR Delta -8.8 ABS# (0-10)
--- NOTE | 2023-09-14 19:52 | PC.NURSE ---
hypoglycemia 1109-BG is 89, pt given 8oz OJ, alert, orientedx4, denies any discomfort 1201-33, repeat 33, 1203-36, pt given d5w 250 ml, peanut butterx3 1249-67,118 oz of sprite soda, glucagon IM per protocol 1310-138. pt still alert, orientedx4. started to have chest pain. 1358-205
--- NOTE | 2023-09-14 20:24 | PC.NURSE ---
Patient c/o pain to right groin after using bedpan. Assessment of right groin WNL. PRN Morphine administered for pain.
[2023-09-14 20:36] LABS: Partial Thromboplastin Time 30.9 SECONDS (23.9-36.7)
--- NOTE | 2023-09-14 20:37 | ECG_ITS ---
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 Measurements Intervals [place] Rate: 72 P: 56 MO: 176 QRS: -33 QRSD: 105 T: 91 QT: 424 QTc: 466 Interpretive Statements SINUS RHYTHM LEFT AXIS DEVIATION [QRS AXIS < -30] NONSPECIFIC ST & T-WAVE ABNORMALITY Compared to ECG 09/14/2023 18:09:03 Prolonged QT interval no longer present T-wave abnormality still present Electronically Signed On 09-15-2023 23:59:12 CDT by Riccardo Burch M.D. [id number]
[2023-09-14 20:42] LABS: Glucose Point of Care 274 mg/dL (70-110)
[2023-09-14 20:42] LABS: Troponin 5 6HR Delta 3.8 ng/L (0-12)
[2023-09-14 20:43] LABS: Troponin 5 6HR 271.8 ng/L (0-10)
[2023-09-14] MEDS: atorvastatin 40 mg Tablet 80 MG PO (20:47)
[2023-09-14] MEDS: heparin drip 25,000 UNIT/500 ML PREMIX 15.3200000000000003 UNIT IV (21:57)
--- NOTE | 2023-09-14 22:07 | PC.NURSE ---
Patient ambulated at 2130 with stand-by assistance. Assessment to right groin WNL before and after. VSS.
[2023-09-14 22:49] LABS: Add Urine Microscopic? YES
[2023-09-14 22:50] LABS: Bilirubin Urine Neg (Negative); Blood Urine 3+ (Negative); Glucose Urine UA 2+ (Normal); Ketones Urine Negative (Negative); Leukocyte Esterase Urine Trace (Negative); Nitrate Urine Negative (Negative); Protein Urine 3+ (Negative); Urine Appearance Clear (CLEAR); Urine Color Yellow (Yellow); Urobilinogen Urine Neg (Negative); pH Urine 8 (5-7)
[2023-09-14 22:51] LABS: Bacteria Urine TRACE /hpf; Mucus Urine TRACE /hpf; RBC Urine 0-4 /hpf (0-2)
[2023-09-14 22:52] LABS: Sulfosalicylic Acid Urine Positive (Negative)
[2023-09-14 22:53] LABS: Amorphous Sediment Urine TRACE /hpf
[2023-09-15] VITALS (24 sets, daily range): BP systolic 98–171; BP diastolic 62–102; PULSE 71–80; RESP 6–20; TEMP 36.2–37; O2SAT 92–99
[2023-09-15] MEDS: morphine 4 mg/mL SDV 1 mL 2 MG IVP ×2 (04:08→13:02)
[2023-09-15 04:36] LABS: Basophils # 0.1 10^3/uL (0.0-0.1); Basophils % 0.8 %; Eosinophils # 0.5 10^3/uL (0.0-0.8); Eosinophils % 6.2 %; Hematocrit 28.9 % (36-47); Lymphocytes # 1.8 10^3/uL (0.8-4.8); Lymphocytes % 23.1 %; Mean Corpuscular HGB Conc 30.4 g/dL (30-55); Mean Corpuscular Hemoglobin 27.6 pg (27-33); Mean Corpuscular Volume 90.6 fl (85-98); Mean Platelet Volume 10.2 fL (7.4-10.4); Monocytes # 0.7 10^3/uL (0.2-0.9); Monocytes % 8.7 %; Neutrophils # 4.63 10^3/uL (1.8-7.7); Neutrophils % 61.1 %; Nucleated Red Blood Cells % 0 %; Platelet Count 177 10^3/cmm (157-399); Red Blood Count 3.19 10^6/uL (3.85-5.65); Red Cell Distribution Width 14.9 % (12.1-15.1); White Blood Count 7.58 10^3/uL (3.29-11.43)
[2023-09-15 04:58] LABS: Alanine Aminotransferase 26 U/L (0-33); Albumin Level 2.6 g/dL (3.5-5.2); Alkaline Phosphatase 96 U/L (35-105); Anion Gap 14.2 (5-19); Aspartate Amino Transferase 21 U/L (0-32); Blood Urea Nitrogen 33 mg/dL (6-20); Calcium 7.8 mg/dL (8.5-10.5); Carbon Dioxide 29 mmol/L (22-29); Chloride 99 mmol/L (98-107); Creatinine Clr Calc Pharmacy 17.2555; Globulin 2.8 g/dL (1.3-4.6); Glomerular Filtration Rate 14.2 mL/min (90-130); Glucose 163 mg/dL (65-115); Osmolality Calculated 297 mOsm/kg (285-295); Potassium 4.2 mmol/L (3.5-5.1); Sodium 138 mmol/L (136-145); Total Bilirubin 0.2 mg/dL (0.15-1.2); Total Protein 5.4 g/dL (6.6-8.7)
[2023-09-15 05:09] LABS: Partial Thromboplastin Time > 250.0 SECONDS (23.9-36.7)
--- NOTE | 2023-09-15 05:13 | PC.NURSE ---
PTT >250 notified provider instructions to pause for 4 hours and recheck PTT
--- NOTE | 2023-09-15 07:40 | PM.PN ---
Subjective Subjective: Patient had coronary angiogram yesterday. Had patent LAD/Diagonal artery stents. RCA is CONCESSION CASHIER with good collateral flow. LCx is small to medium sized vessel with subtotal occlusion in the mid segment. Had difficult wiring, balloon angioplasty was performed. This vessel has distal collaterals too. Dissection was noted post ballooning. As vessel size is not large, it had flow and has collaterals, we decided to continue with medical therapy. Patient has remained chest pain free since the procedure. Vitals/I&O/Wt Last Vital Signs Temp 97.8 F 09/15/23 03:55 Pulse 77 09/15/23 06:00 Resp 12 09/15/23 06:00 BP 143/84 09/15/23 06:00 Pulse Ox 93 09/15/23 06:00 O2 Del Method Room Air 09/15/23 06:00 09/14/23 09/15/23 09/15/23 22:59 06:59 14:59 Intake Total 52.65 / 762.492 110.559 / 873.051 Output Total 350 / 350 Balance -297.35 / 412.492 110.559 / 523.051 Weight last 48 hrs Weight 131 lb 1.6 oz Weight 123 lb 6.4 oz Weight 120 lb 9.6 oz Weight 120 lb 9.6 oz Weight 119 lb Physical Exam Narrative: GENERAL: Patient is alert, awake and oriented x3. [] NECK: No jugular vein distension. [] HEENT: No cyanosis. No icterus. No pallor. [] HEART: Regular S1 and S2. No murmur, rub or gallop. [] LUNGS: Clear to auscultate bilaterally. [] CENTRAL NERVOUS SYSTEM: Grossly nonfocal. [] EXTREMITIES: Lower extremities with 1+ edema bilaterally Data 09/15/23 04:00 09/15/23 04:00 A&P Assessment and plan (1) NSTEMI (non-ST elevated myocardial infarction): (2) Acute non-ST elevation myocardial infarction (NSTEMI): (3) Neurogenic bladder: (4) Diabetic neuropathy associated with type 1 diabetes mellitus: Qualifiers: Diabetes mellitus complication detail: diabetic polyneuropathy Qualified Code(s): E10.42 - Type 1 diabetes mellitus with diabetic polyneuropathy (5) ESRD (end stage renal disease): Plan Above mentioned coronary anatomy. Subtotally occluded lcx had balloon angioplasty but we did not place stent as wiring and ballooning caused dissection, vessel size was not large and artery had collaterals. She is chest pain free. Completing 48 hours of heparin Continue dual antiplatelet therapy Can put on low dose Imdur Will need dialysis prior to discharge Thank you for involving us with care of this patient. We will continue to follow. Please call with questions Attestations Medical Necessity Statement*: Care expected to cross 2 midnights. Coding Level of Care Code Acute Code for g Fwd Diagnoses NSTEMI (non-ST elevated myocardial infarction) I21.4 Acute non-ST elevation myocardial infarction (NSTEMI) I21.4 Neurogenic bladder N31.9 Diabetic polyneuropathy associated with type 1 diabetes mellitus E10.42 Diabetes mellitus complication detail: diabetic polyneuropathy ESRD (end stage renal disease) N18.6
[2023-09-15 08:17] LABS: Glucose Point of Care 244 mg/dL (70-110)
[2023-09-15] MEDS: insulin lispro 100 unit/1 mL SUBCUT ×3 (08:20→21:00)
[2023-09-15] MEDS: sennosides-docusate Tablet 1 TAB PO (08:21)
[2023-09-15] MEDS: carvedilol 6.25 mg Tablet PO ×2 (08:21→16:43)
[2023-09-15] MEDS: aspirin 81 mg EC Tablet PO (08:21)
[2023-09-15] MEDS: clopidogrel 75 mg Tablet PO (08:21)
[2023-09-15] MEDS: hyDRALAzine 25 mg Tablet PO ×3 (08:21→21:00)
[2023-09-15] MEDS: sevelamer 800 mg Tablet PO ×3 (08:21→21:00)
[2023-09-15] MEDS: heparin 5,000 unit/mL INJ 1 mL IV ×2 (11:01→18:04)
[2023-09-15 11:37] LABS: Glucose Point of Care 105 mg/dL (70-110)
--- NOTE | 2023-09-15 13:24 | P.PN_ITS ---
Subjective 2 Subjective: Chest pain-free this morning. Patient went to the Certified Prosthetist last evening. She was found to have small to medium sized circumflex with subtotal occlusion. Several collaterals to it. Size of the vessel was not large enough to place stent. Patient is chest pain-free since then. She has not needed to be restarted on nitroglycerin. Medications: Reviewed: Yes Vitals/I&O/Wt Last Vital Signs Temp 97.8 F 09/15/23 03:55 Pulse 77 09/15/23 08:10 Resp 18 09/15/23 13:02 BP 166/102 09/15/23 08:00 Pulse Ox 92 09/15/23 08:10 O2 Del Method Room Air 09/15/23 08:10 09/14/23 09/15/23 09/15/23 22:59 06:59 14:59 Intake Total 52.65 / 762.492 110.559 / 873.051 120 / 120 Output Total 350 / 350 Balance -297.35 / 412.492 110.559 / 523.051 120 / 120 Weight last 48 hrs Weight 59.466 kg Weight 55.973 kg Weight 54.703 kg Weight 54.703 kg Weight 53.977 kg Physical Exam 2 Narrative: General: Awake alert oriented, no acute distress. HEENT: PERRLA, pupils bilaterally equal and reactive, pallors not present Chest: Normal vesicular breath sounds, no added sounds, equal good air entry bilaterally CVS: S1-S2 regular, no murmurs, no tachycardia, no gallops, no rubs Abdomen: Soft, nontender, no organomegaly, bowel sounds present Neuro: No focal deficits, no facial deformity, AO x3, power 5/5 in all limbs Data 09/15/23 04:00 09/15/23 04:00 A&P Assessment and plan (1) NSTEMI (non-ST elevated myocardial infarction): (2) Acute non-ST elevation myocardial infarction (NSTEMI): (3) Neurogenic bladder: (4) Diabetic neuropathy associated with type 1 diabetes mellitus: Qualifiers: Diabetes mellitus complication detail: diabetic polyneuropathy Qualified Code(s): E10.42 - Type 1 diabetes mellitus with diabetic polyneuropathy (5) ESRD (end stage renal disease): Plan Non-STEMI Established coronary disease Stents were placed 2 years ago at [facility], 3 stents were placed, patient is endorsing compliance with her medications She is not smoking or drinking alcohol these days Pain started after her dialysis today EKG not showing ischemic or infarctive changes Troponin significantly elevated Start heparin and nitroglycerin drip She is hypertensive with diastolic above 110 which will be considered as hypertensive emergency Continue diabetes regimen Patient is chest pain free at this point Please consult cardiology in the morning No acute indication for cardiac Certified Prosthetist activation at this time Request D-dimer End-stage renal disease Her first dialysis session was on Saturday Diabetes related nephropathy Dialysis cath was placed at [facility] Now she has moved to [place] to live with her parents has a chair time as well Saturday Next session of dialysis on Saturday unless plan for angiogram over the weekend Hypertensive emergency Start nitroglycerin drip Anemia of chronic disease: Stable Renal diet Full code Consistent carb diet with insulin patient takes Lantus 5 units along sliding scale Check A1c level Plan for today. Cardiology consulted in view of NSTEMI. Plan for likely cardiac cath tomorrow. Continue heparin drip, aspirin 81 mg daily, atorvastatin 80 mg p.o. daily, Coreg, Plavix 75 mg p.o. daily. Echo showing LVEF of 50 to 55%, grade 2 diastolic dysfunction. Continue nitroglycerin infusion, did not tolerate weaning down. Add morphine 2 mg IV every 4 hours as needed for chest pain. Repeat EKG and troponin series now as above. Discontinue scheduled insulin as patient hypoglycemic. Changed to mild sliding scale. Check HbA1c. Currently blood sugar is improving after using glucagon IM. She had 1 episode of diarrhea. Past history of C. difficile. Stool C. difficile PCR has been ordered. Plan to transfer to ICU in view of soft blood pressure, closer monitoring as may need pressor support alongside of nitroglycerin gtt. Plan for today September 15, 2023. Patient was taken to Certified Prosthetist yesterday in view of ongoing chest pain in spite of nitroglycerin. Findings as above. Currently she is chest pain-free. Off nitroglycerin. Patient can be moved out of the ICU today. Resume home dose of amlodipine 5 mg daily. Continue Coreg, aspirin, Plavix, atorvastatin. Heparin drip to discontinue at midnight today after 48 hours for treatment of NSTEMI. Dialysis tomorrow. Attestations 2 Medical Necessity Statement*: Ongoing treatment for NSTEMI. Coding Level of Care Code Acute Code for Chg Fwd Moderate MDM includes number and complexity of problems actively addressed during encounter, amount and/or complexity of data reviewed/ordered and described risk of complication, morbidity or mortality of management as documented Diagnoses NSTEMI (non-ST elevated myocardial infarction) I21.4 Acute non-ST elevation myocardial infarction (NSTEMI) I21.4 Neurogenic bladder N31.9 Diabetic polyneuropathy associated with type 1 diabetes mellitus E10.42 Diabetes mellitus complication detail: diabetic polyneuropathy ESRD (end stage renal disease) N18.6
[2023-09-15] MEDS: amlodipine 5 mg Tablet PO (13:55)
--- NOTE | 2023-09-15 14:20 | PC.NURSE ---
Gave report to Lili MTZ on med/surg.
[2023-09-15 16:20] LABS: Glucose Point of Care 260 mg/dL (70-110)
[2023-09-15 17:31] LABS: Partial Thromboplastin Time 38.9 SECONDS (23.9-36.7)
[2023-09-15 20:28] LABS: Glucose Point of Care 156 mg/dL (70-110)
--- NOTE | 2023-09-15 20:52 | PC.NURSE ---
Dr. Che notified of patient having 80 mg and 20 mg Atorvastatin ordered for bedtime. Ordered to only give 80 mg.
[2023-09-15] MEDS: atorvastatin 40 mg Tablet 80 MG PO (21:00)
[2023-09-16] VITALS (12 sets, daily range): BP systolic 110–132; BP diastolic 69–80; PULSE 74–87; RESP 16–18; TEMP 36.4–37; O2SAT 90–96
[2023-09-16] MEDS: morphine 4 mg/mL SDV 1 mL 2 MG IVP ×5 (00:21→20:46)
[2023-09-16 04:19] LABS: Basophils # 0.1 10^3/uL (0.0-0.1); Basophils % 0.6 %; Eosinophils # 0.5 10^3/uL (0.0-0.8); Eosinophils % 5.5 %; Hematocrit 30.9 % (36-47); Lymphocytes # 1.4 10^3/uL (0.8-4.8); Lymphocytes % 16.7 %; Mean Corpuscular HGB Conc 29.1 g/dL (30-55); Mean Corpuscular Hemoglobin 27.8 pg (27-33); Mean Corpuscular Volume 95.4 fl (85-98); Mean Platelet Volume 10.5 fL (7.4-10.4); Monocytes # 0.7 10^3/uL (0.2-0.9); Monocytes % 8.5 %; Neutrophils # 5.69 10^3/uL (1.8-7.7); Neutrophils % 68.6 %; Nucleated Red Blood Cells % 0 %; Platelet Count 170 10^3/cmm (157-399); Red Blood Count 3.24 10^6/uL (3.85-5.65); Red Cell Distribution Width 14.6 % (12.1-15.1); White Blood Count 8.31 10^3/uL (3.29-11.43)
[2023-09-16 04:37] LABS: Albumin Level 2.6 g/dL (3.5-5.2); Alkaline Phosphatase 96 U/L (35-105); Blood Urea Nitrogen 51 mg/dL (6-20); Calcium 8.6 mg/dL (8.5-10.5); Carbon Dioxide 24 mmol/L (22-29); Chloride 99 mmol/L (98-107); Creatinine Clr Calc Pharmacy 11.5991; Globulin 3.3 g/dL (1.3-4.6); Glomerular Filtration Rate 8.9 mL/min (90-130); Glucose 103 mg/dL (65-115); Osmolality Calculated 298 mOsm/kg (285-295); Sodium 137 mmol/L (136-145); Total Bilirubin 0.2 mg/dL (0.15-1.2); Total Protein 5.9 g/dL (6.6-8.7)
[2023-09-16 04:46] LABS: Alanine Aminotransferase 22 U/L (0-33); Anion Gap 19.2 (5-19); Aspartate Amino Transferase 19 U/L (0-32); Potassium 5.2 mmol/L (3.5-5.1)
[2023-09-16 06:20] LABS: Glucose Point of Care 165 mg/dL (70-110)
--- NOTE | 2023-09-16 06:56 | PM.PN ---
Subjective Subjective: Patient is chest pain free. Plan for dialysis today. Vitals/I&O/Wt Last Vital Signs Temp 98.6 F 09/15/23 19:36 Pulse 81 09/16/23 05:14 Resp 16 09/16/23 06:18 BP 132/80 09/16/23 04:00 Pulse Ox 95 09/16/23 04:00 O2 Del Method Nasal Cannula 09/15/23 15:56 09/15/23 09/15/23 09/16/23 14:59 22:59 06:59 Intake Total 240 / 240 1177.093 / 1417.093 366.483 / 1783.576 Balance 240 / 240 1177.093 / 1417.093 366.483 / 1783.576 Weight last 48 hrs Weight 133 lb 7 oz Weight 131 lb 1.6 oz Physical Exam Narrative: GENERAL: Patient is alert, awake and oriented x3. [] NECK: No jugular vein distension. [] HEENT: No cyanosis. No icterus. No pallor. [] HEART: Regular S1 and S2. No murmur, rub or gallop. [] LUNGS: Clear to auscultate bilaterally. [] CENTRAL NERVOUS SYSTEM: Grossly nonfocal. [] EXTREMITIES: Lower extremities with 1+ edema bilaterally Data 09/17/23 04:20 09/17/23 04:20 A&P Assessment and plan (1) NSTEMI (non-ST elevated myocardial infarction): (2) Acute non-ST elevation myocardial infarction (NSTEMI): (3) Neurogenic bladder: (4) Diabetic neuropathy associated with type 1 diabetes mellitus: Qualifiers: Diabetes mellitus complication detail: diabetic polyneuropathy Qualified Code(s): E10.42 - Type 1 diabetes mellitus with diabetic polyneuropathy (5) ESRD (end stage renal disease): Plan Patient is stable with no chest pain. Continue dual antiplatelet therapy. Plan for dialysis today. Thank you for involving us with care of this patient. We will continue to follow. Please call with questions Attestations Medical Necessity Statement*: Care expected to cross 2 midnights. Coding Level of Care Code Acute Code for [facility] Diagnoses NSTEMI (non-ST elevated myocardial infarction) I21.4 Acute non-ST elevation myocardial infarction (NSTEMI) I21.4 Neurogenic bladder N31.9 Diabetic polyneuropathy associated with type 1 diabetes mellitus E10.42 Diabetes mellitus complication detail: diabetic polyneuropathy ESRD (end stage renal disease) N18.6
[2023-09-16] MEDS: sennosides-docusate Tablet 1 TAB PO (08:40)
[2023-09-16] MEDS: sevelamer 800 mg Tablet PO ×2 (08:40→13:59)
[2023-09-16] MEDS: amlodipine 5 mg Tablet PO (08:40)
[2023-09-16] MEDS: aspirin 81 mg EC Tablet PO (08:40)
[2023-09-16] MEDS: hyDRALAzine 25 mg Tablet PO ×3 (08:40→20:40)
[2023-09-16] MEDS: clopidogrel 75 mg Tablet PO (08:40)
[2023-09-16] MEDS: insulin lispro 100 unit/1 mL SUBCUT (08:41)
[2023-09-16] MEDS: carvedilol 6.25 mg Tablet PO ×2 (08:41→17:07)
--- NOTE | 2023-09-16 08:42 | PM.PN ---
Vitals/I&O/Wt Last Vital Signs Temp 97.8 F 09/16/23 07:39 Pulse 79 09/16/23 07:39 Resp 18 09/16/23 07:39 BP 125/75 09/16/23 07:39 Pulse Ox 93 09/16/23 07:39 O2 Del Method Room Air 09/16/23 07:39 09/15/23 09/16/23 09/16/23 22:59 06:59 14:59 Intake Total 1177.093 / 1417.093 366.483 / 1783.576 Balance 1177.093 / 1417.093 366.483 / 1783.576 Weight last 48 hrs Weight 60.526 kg Weight 59.466 kg Data 09/16/23 02:47 09/16/23 02:47 Coding Level of Care Code Acute Code for Chg Fwd
[2023-09-16 11:36] LABS: Glucose Point of Care 92 mg/dL (70-110)
--- NOTE | 2023-09-16 13:15 | PM.DCS ---
Discharge Providers Date of Admission: 09/13/23 23:41 Date of Discharge: September 16, 2023 Attending Provider at Admission: Austin Che MD Attending Provider at Discharge: Aleksandra Garcia MD Diagnoses at Discharge Discharge Diagnosis (1) NSTEMI (non-ST elevated myocardial infarction): Status: Acute (2) Acute non-ST elevation myocardial infarction (NSTEMI): Status: Acute (3) Neurogenic bladder: Status: Acute (4) Diabetic neuropathy associated with type 1 diabetes mellitus: Status: Chronic Qualifiers: Diabetes mellitus complication detail: diabetic polyneuropathy Qualified Code(s): E10.42 - Type 1 diabetes mellitus with diabetic polyneuropathy (5) ESRD (end stage renal disease): Status: Acute Reason for Visit Reason for Visit: cp left arm kidney pain karley pt today Discharge Data Studies Completed and Pending Completed Studies During Hospitalization Category Date Time Status XR chest 1V portable [id number] Stat Exams 09/13/23 21:08 Completed CV. 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 Negative for infiltrate 2. Cardiomegaly. 3. Right-sided central venous catheter. Laboratory Results WBC 8.31 10^3/uL (3.29-11.43) 09/16/23 02:47 RBC 3.24 10^6/uL (3.85-5.65) L 09/16/23 02:47 Hgb 9.00 g/dL (11.27-16.99) L 09/16/23 02:47 Hct 30.9 % (36-47) L 09/16/23 02:47 MCV 95.4 fl (85-98) D 09/16/23 02:47 MCH 27.8 pg (27-33) 09/16/23 02:47 MCHC 29.1 g/dL (30-55) L 09/16/23 02:47 RDW 14.6 % (12.1-15.1) 09/16/23 02:47 Plt Count 170 10^3/cmm (157-399) 09/16/23 02:47 MPV 10.5 fL (7.4-10.4) H 09/16/23 02:47 Neut % (Auto) 68.6 % 09/16/23 02:47 Lymph % (Auto) 16.7 % 09/16/23 02:47 Williams % (Auto) 8.5 % 09/16/23 02:47 Eos % (Auto) 5.5 % 09/16/23 02:47 Baso % (Auto) 0.6 % 09/16/23 02:47 Neut # (Auto) 5.69 10^3/uL (1.8-7.7) 09/16/23 02:47 Lymph # (Auto) 1.4 10^3/uL (0.8-4.8) 09/16/23 02:47 Williams # (Auto) 0.7 10^3/uL (0.2-0.9) 09/16/23 02:47 Eos # (Auto) 0.5 10^3/uL (0.0-0.8) 09/16/23 02:47 Baso # (Auto) 0.1 10^3/uL (0.0-0.1) 09/16/23 02:47 Nucleated RBC % (auto) 0 % 09/16/23 02:47 Nucleated RBCs # 0.0 /100WBC 09/16/23 02:47 APTT 38.9 SECONDS (23.9-36.7) H 09/15/23 17:09 D-Dimer 0.85 ug/mLFEU (0-0.59) H 09/13/23 23:59 Sodium 137 mmol/L (136-145) 09/16/23 02:47 Potassium 5.2 mmol/L (3.5-5.1) H 09/16/23 02:47 Chloride 99 mmol/L (98-107) 09/16/23 02:47 Carbon Dioxide 24 mmol/L (22-29) 09/16/23 02:47 Anion Gap 19.2 (5-19) H 09/16/23 02:47 BUN 51 mg/dL (6-20) H 09/16/23 02:47 Creatinine 5.4 mg/dL (0.5-0.9) H 09/16/23 02:47 GFR Calculation 8.9 mL/min (90-130) L 09/16/23 02:47 Glucose 103 mg/dL (65-115) 09/16/23 02:47 POC Glucose 92 mg/dL (70-110) 09/16/23 11:21 Estimat Average Glucose 140 09/14/23 06:15 Hemoglobin A1c 6.5 % (4.0-6.0) H 09/14/23 06:15 Calculated Osmolality 298 mOsm/kg (285-295) H 09/16/23 02:47 Calcium 8.6 mg/dL (8.5-10.5) 09/16/23 02:47 Phosphorus 4.1 mg/dL (2.5-4.5) 09/14/23 06:15 Magnesium 1.7 mg/dL (1.7-2.3) 09/14/23 06:15 Total Bilirubin 0.2 mg/dL (0.15-1.2) 09/16/23 02:47 AST 19 U/L (0-32) 09/16/23 02:47 ALT 22 U/L (0-33) 09/16/23 02:47 Alkaline Phosphatase 96 U/L (35-105) 09/16/23 02:47 Troponin T Baseline 268 ng/L (0-10) H* 09/14/23 14:50 Troponin T 120 Minute 259.2 ng/L (0-10) H 09/14/23 19:14 Delta Troponin T -8.8 ABS# (0-10) L 09/14/23 19:14 Troponin T Hi Sens 6Hr 271.8 ng/L (0-10) H 09/14/23 20:15 Troponin T Hi Sens 6Hr Delta 3.8 ng/L (0-12) 09/14/23 20:15 Total Protein 5.9 g/dL (6.6-8.7) L 09/16/23 02:47 Albumin 2.6 g/dL (3.5-5.2) L 09/16/23 02:47 Globulin 3.3 g/dL (1.3-4.6) 09/16/23 02:47 Urine Color Yellow (Yellow) 09/14/23 21:35 Urine Appearance Clear (CLEAR) 09/14/23 21:35 Urine pH 8 (5-7) H 09/14/23 21:35 Ur Specific [place] 1.010 (1.005-1.030) 09/14/23 21:35 Urine Protein 3+ (Negative) H 09/14/23 21:35 Urine Glucose (UA) 2+ (Normal) H 09/14/23 21:35 Urine Ketones Negative (Negative) 09/14/23 21:35 Urine Blood 3+ (Negative) H 09/14/23 21:35 Urine Nitrate Negative (Negative) 09/14/23 21:35 Urine Bilirubin Neg (Negative) 09/14/23 21:35 Prot Sulfosalicylic Acd Positive (Negative) 09/14/23 21:35 Urine Urobilinogen Neg mg/dL (Negative) 09/14/23 21:35 Ur Leukocyte Esterase Trace (Negative) H 09/14/23 21:35 Urine RBC 0-4 /hpf (0-2) H 09/14/23 21:35 Urine WBC 5-10 /hpf (0-5) H 09/14/23 21:35 Ur Squamous Epith Cells 5-10 /hpf (0-5) H 09/14/23 21:35 Amorphous Sediment Trace /hpf 09/14/23 21:35 Urine Bacteria Trace /hpf (NONE) 09/14/23 21:35 Urine Mucus Trace /hpf 09/14/23 21:35 Vitals Last Vital Signs Temp 97.7 F 09/16/23 12:07 Pulse 74 09/16/23 12:07 Resp 18 09/16/23 12:07 BP 110/69 09/16/23 12:07 Pulse Ox 91 09/16/23 12:07 O2 Del Method Room Air 09/16/23 12:07 Discharge Plan Discharge Patient Disposition: Home Condition: Stable Prescriptions: No Action (DME) Dexcom G6 Patient Care Associate Misc See Rx Instructions .Route Qty: 1 0RF Rx Instructions: As directed (DME) Dexcom G6 Sensor Device See Rx Instructions .Route Qty: 3 0RF Rx Instructions: As directed (DME) Dexcom G6 Transmitter Device See Rx Instructions .Route Qty: 1 0RF Rx Instructions: As directed clopidogrel 75 mg tablet 75 mg PO DAILY Qty: 90 1RF albuterol sulfate 90 mcg/actuation HFA aerosol inhaler 2 puff inhalation Q6H PRN (Reason: shortness of breath or wheezing) insulin glargine [Lantus Solostar U-100 Insulin] 100 unit/mL (3 mL) insulin pen 5 unit SUBCUT BEDTIME insulin aspart U-100 [Novolog FlexPen U-100 Insulin] 100 unit/mL (3 mL) Insulin Pen See Rx Instructions .ROUTE .COMPLEX Qty: 1 3RF Rx Instructions: sliding scale tid atorvastatin 20 mg tablet 20 mg PO BEDTIME Breo Ellipta 100-25 mcg/dose Blister With Device 1 inh INHALATION DAILY metoprolol succinate 100 mg Tablet Extended Release 24 Hr 100 mg PO DAILY amlodipine 5 mg Tablet 5 mg PO DAILY Nitrostat 0.4 mg Tablet, Sublingual 0.4 mg SUBLINGUAL Q5M PRN (Reason: Chest Pain) Rx Instructions: do not exceed 3 doses per episode Patient Instructions: Heart Failure (DC), CHF Stoplight, Post Heart Attack Stoplight, Opioid Safety Discharge Attestations Status at Discharge: Cognitive status at discharge: cognitively intact, Behavioral status at discharge: cooperative and independent in ADL's, Coding Level of Care Code Acute Code for [facility] Fwd Diagnoses NSTEMI (non-ST elevated myocardial infarction) I21.4 Acute non-ST elevation myocardial infarction (NSTEMI) I21.4 Neurogenic bladder N31.9 Diabetic polyneuropathy associated with type 1 diabetes mellitus E10.42 Diabetes mellitus complication detail: diabetic polyneuropathy ESRD (end stage renal disease) N18.6
--- NOTE | 2023-09-16 13:41 | PC.NURSE ---
Attempt to call patient's mother. It went to voicemail. Will try again later.
[2023-09-16] MEDS: isosorbide mononitrate ER 30 mg Tablet 15 MG PO (13:59)
--- NOTE | 2023-09-16 14:23 | P.PN_ITS ---
Subjective 2 Subjective: Seen this morning. Patient complains of right leg pain. No evidence of hematoma at right groin area. Pulses intact bilateral feet Feet well-perfused and warm. No sign of ecchymosis on abdomen area. Will be going for dialysis today. Denies chest pain, shortness of breath. Vitals/I&O/Wt Last Vital Signs Temp 97.7 F 09/16/23 12:07 Pulse 74 09/16/23 12:07 Resp 18 09/16/23 12:07 BP 110/69 09/16/23 12:07 Pulse Ox 91 09/16/23 12:07 O2 Del Method Room Air 09/16/23 12:07 09/15/23 09/16/23 09/16/23 22:59 06:59 14:59 Intake Total 1177.093 / 1417.093 366.483 / 1783.576 Balance 1177.093 / 1417.093 366.483 / 1783.576 Weight last 48 hrs Weight 60.526 kg Weight 59.466 kg Physical Exam 2 Narrative: General: Awake alert oriented, no acute distress. HEENT: PERRLA, pupils bilaterally equal and reactive, pallors not present Chest: Normal vesicular breath sounds, no added sounds, equal good air entry bilaterally CVS: S1-S2 regular, no murmurs, no tachycardia, no gallops, no rubs Abdomen: Soft, nontender, no organomegaly, bowel sounds present Right groin area no fluctuance or hematoma noted. Neuro: No focal deficits, no facial deformity, AO x3, bilateral feet are well- perfused, pulses intact. Data 09/16/23 02:47 09/16/23 02:47 A&P Assessment and plan (1) NSTEMI (non-ST elevated myocardial infarction): (2) Acute non-ST elevation myocardial infarction (NSTEMI): (3) Neurogenic bladder: (4) Diabetic neuropathy associated with type 1 diabetes mellitus: Qualifiers: Diabetes mellitus complication detail: diabetic polyneuropathy Qualified Code(s): E10.42 - Type 1 diabetes mellitus with diabetic polyneuropathy (5) ESRD (end stage renal disease): Plan Non-STEMI Established coronary disease Stents were placed 2 years ago at [facility], 3 stents were placed, patient is endorsing compliance with her medications She is not smoking or drinking alcohol these days Pain started after her dialysis today EKG not showing ischemic or infarctive changes Troponin significantly elevated Start heparin and nitroglycerin drip She is hypertensive with diastolic above 110 which will be considered as hypertensive emergency Continue diabetes regimen Patient is chest pain free at this point Please consult cardiology in the morning No acute indication for cardiac [facility] activation at this time Request D-dimer End-stage renal disease Her first dialysis session was on Saturday Diabetes related nephropathy Dialysis cath was placed at [place] Now she has moved to [place] to live with her parents has a chair time as well Saturday Next session of dialysis on Saturday unless plan for angiogram over the weekend Hypertensive emergency Start nitroglycerin drip Anemia of chronic disease: Stable Renal diet Full code Consistent carb diet with insulin patient takes Lantus 5 units along sliding scale Check A1c level Plan for today. Cardiology consulted in view of NSTEMI. Plan for likely cardiac cath tomorrow. Continue heparin drip, aspirin 81 mg daily, atorvastatin 80 mg p.o. daily, Coreg, Plavix 75 mg p.o. daily. Echo showing LVEF of 50 to 55%, grade 2 diastolic dysfunction. Continue nitroglycerin infusion, did not tolerate weaning down. Add morphine 2 mg IV every 4 hours as needed for chest pain. Repeat EKG and troponin series now as above. Discontinue scheduled insulin as patient hypoglycemic. Changed to mild sliding scale. Check HbA1c. Currently blood sugar is improving after using glucagon IM. She had 1 episode of diarrhea. Past history of C. difficile. Stool C. difficile PCR has been ordered. Plan to transfer to ICU in view of soft blood pressure, closer monitoring as may need pressor support alongside of nitroglycerin gtt. Plan for today September 15, 2023. Patient was taken to [facility] yesterday in view of ongoing chest pain in spite of nitroglycerin. Findings as above. Currently she is chest pain-free. Off nitroglycerin. Patient can be moved out of the ICU today. Resume home dose of amlodipine 5 mg daily. Continue Coreg, aspirin, Plavix, atorvastatin. Heparin drip to discontinue at midnight today after 48 hours for treatment of NSTEMI. Dialysis tomorrow. September 16, 2023 ? Continue amlodipine, Coreg, aspirin, Plavix, atorvastatin. ? Discontinue heparin drip ? Cardiology on board ? Plan for dialysis today ? Plan to discharge home if stable in a.m. -Will check ultrasound right groin Attestations 2 Medical Necessity Statement*: Ongoing treatment for NSTEMI. Diagnoses NSTEMI (non-ST elevated myocardial infarction) I21.4 Acute non-ST elevation myocardial infarction (NSTEMI) I21.4 Neurogenic bladder N31.9 Diabetic polyneuropathy associated with type 1 diabetes mellitus E10.42 Diabetes mellitus complication detail: diabetic polyneuropathy ESRD (end stage renal disease) N18.6
--- NOTE | 2023-09-16 14:25 | USCV_ITS ---
Donita Aguilar Age: 38 Gender: F : 1985 Exam Date: 09/16/2023 15:13 Ordering Phys: Aleksandra Garcia MD Technologist: Exam Location: [facility] [place] Indication: Post Cath 3 days ago ? psuedo anuer Findings no puesdo anuer normal blood flow neg exam Conclusions No evidence of pseudoaneurysm Normal flow APPRAISAL COORDINATOR and CFV Bill Edgar MD (Electronically Signed) Final Date: 16 September 2023 16:24 S
[2023-09-16 16:53] LABS: Glucose Point of Care 128 mg/dL (70-110)
--- NOTE | 2023-09-16 17:23 | PC.NURSE ---
Pt taken to dialysis at this time.
[2023-09-16] MEDS: albumin 12.5 GM/50 ML VIAL IV ×2 (18:20→19:07)
[2023-09-16] MEDS: ondansetron 2 mg/ML SDV 2 mL 4 MG IVP (18:40)
--- NOTE | 2023-09-16 20:28 | P.CONIM_ITS ---
Providers/Reason For Consult 2 Consulting Physician/Specialty*: kommana/nephrology Reason for Consult*: esrd Attending Physician: Aleksandra Garcia MD History of Present Illness History of Present Illness Donita Aguilar is a 38 year old female Patient is a 38-year-old female with past medical history of coronary artery disease status post 3 stents end-stage renal disease on dialysis per Saturday schedule, diabetes, hypertension presented to the hospital due to chest pain. Patient was admitted to the hospital due to non-STEMI, started on heparin drip. Patient was also hypertensive on presentation. Patient has elevated BNP and thought to have volume overload as well. Review of Systems 2 Narrative: other ros negative Medications/Allergies Home Medications Medication Instructions Recorded Confirmed Last Taken Type albuterol sulfate 90 mcg/actuation 2 puff inhalation Q6H PRN 02/07/22 09/14/23 Unknown History aerosol inhaler shortness of breath or wheezing insulin aspart U-100 100 unit/mL See Rx Instructions .Route 06/07/22 09/14/23 06/28/22 Rx (3 mL) subcutaneous pen (Novolog .COMPLEX #1 ea FlexPen U-100 Insulin aspart) blood-glucose meter,continuous #1 ea 06/12/22 09/14/23 Unknown Rx (Dexcom G6 Punch Press Operator Helper) blood-glucose sensor (Dexcom G6 #3 ea 06/12/22 09/14/23 Unknown Rx Sensor device) blood-glucose transmitter (Dexcom #1 ea 06/12/22 09/14/23 Unknown Rx G6 Transmitter device) amlodipine 5 mg tablet 5 mg PO DAILY 09/14/23 09/14/23 Unknown History fluticasone furoate 100 1 inh inhalation DAILY 09/14/23 09/14/23 Unknown History mcg-vilanterol 25 mcg/dose inhalation powder (Breo Ellipta) nitroglycerin 0.4 mg sublingual 0.4 mg sublingual Q5M PRN Chest 09/14/23 09/14/23 Unknown History tablet (Nitrostat) Pain aspirin 81 mg tablet,delayed 81 mg PO DAILY #30 tabs 09/16/23 Unknown Rx release atorvastatin 40 mg tablet 80 mg (2 x 40 mg) PO BEDTIME #60 09/16/23 Unknown Rx tabs carvedilol 6.25 mg tablet 6.25 mg PO BID #60 tabs 09/16/23 Unknown Rx clopidogrel 75 mg tablet 75 mg PO DAILY #30 tabs 09/16/23 Unknown Rx hydralazine 25 mg tablet 25 mg PO TID #90 tabs 09/16/23 Unknown Rx sevelamer carbonate 800 mg tablet 800 mg PO TID #90 tabs 09/16/23 Unknown Rx Allergies Allergy/AdvReac Type Severity Reaction Status Date / Time acetaminophen AdvReac Mild ADR-Gastrointestinal Verified 09/13/23 21:15 Upset Current Medications Generic Name Dose Route Start Last Admin Trade Name Jan PRN Reason Stop Dose Admin Amlodipine Besylate 5 mg 09/15/23 13:35 09/16/23 08:40 Amlodipine 5 Mg Tablet PO 5 mg DAILY SHAY Administration Aspirin 81 mg 09/14/23 09:00 09/16/23 08:40 Aspirin 81 Mg Ec Tablet PO 81 mg DAILY SHAY Administration Atorvastatin Calcium 80 mg 09/14/23 21:00 09/15/23 21:00 Atorvastatin 40 Mg Tablet PO 80 mg BEDTIME SHAY Administration Carvedilol 6.25 mg 09/14/23 09:00 09/16/23 17:07 Carvedilol 6.25 Mg Tablet PO 6.25 mg BID SHAY Administration Clopidogrel Bisulfate 75 mg 09/14/23 09:00 09/16/23 08:40 Clopidogrel 75 Mg Tablet PO 75 mg DAILY SHAY Administration Hydralazine HCl 25 mg 09/14/23 09:00 09/16/23 13:59 Hydralazine 25 Mg Tablet PO 25 mg TID SHAY Administration Dextrose 500 mls @ 0 mls/hr 09/14/23 00:50 09/14/23 14:36 D5w IV Infused ONCE PRN Infusion Adult Acute Hypoglycemia Prot Protocol Per Protocol Albumin Human 12.5 gm in 50 mls @ 60 mls/hr 09/16/23 16:17 09/16/23 19:07 Albumin IV 60 mls/hr PRN PRN Administration Hypotension and/or symptomatic Insulin Human Lispro 0 unit 09/14/23 18:00 09/16/23 20:26 Insulin Lispro 100 Unit/1 Ml SUBCUT Not Given WM&BEDTIME SHAY Protocol Isosorbide Mononitrate 15 mg 09/16/23 13:25 09/16/23 13:59 Isosorbide Mononitrate Er 30 Mg Tablet PO 15 mg DAILY SHAY Administration Morphine Sulfate 2 mg 09/14/23 14:51 09/16/23 16:11 Morphine 4 Mg/Ml Sdv 1 Ml IVP 2 mg Q4H PRN Administration SEVERE PAIN Senna/Docusate Sodium 1 tab 09/14/23 09:00 09/16/23 08:40 Sennosides-Docusate Tablet PO 1 tab DAILY SHAY Administration Sevelamer Carbonate 800 mg 09/14/23 09:00 09/16/23 13:59 Sevelamer 800 Mg Tablet PO 800 mg TID SHAY Administration PFSH Acute 2 PFSH: Medical History Intractable nausea and vomiting Diabetic gastroparesis Acute cystitis with hematuria CKD (chronic kidney disease) stage 3, GFR 30-59 ml/min ERICA (acute kidney injury) CHF (congestive heart failure), NYHA class III Pulmonary hypertension CAD (coronary artery disease) Neurogenic bladder Acute kidney injury superimposed on chronic kidney disease Metabolic acidosis COVID-19 Tobacco dependence Drug abuse Anemia Community acquired pneumonia Acute hyperglycemia Esophagitis Complicated UTI (urinary tract infection) Transaminitis Long-term insulin use History of pancreatitis Hyperlipidemia Celiac disease Recurrent UTI Non-alcoholic fatty liver disease Arnold-Chiari malformation Diabetic gastroparesis -continue Reglan Diabetic neuropathy associated with type 1 diabetes mellitus Headache, common migraine, intractable, with status migrainosus Cystitis Pleural effusion 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 Uncontrolled type 1 diabetes mellitus Lymphadenitis Ureterolithiasis Pyelonephritis PID (pelvic inflammatory disease) Anxiety Sepsis Respiratory failure HTN (hypertension) Pancreatitis DKA (diabetic ketoacidoses) Migraine headache Chronic headache Surgical History History of lung surgery -s/p LLL lobectomy secondary to cavitary pneumonia (2017) History of endoscopy History of cholecystectomy Family History Grandfather Diabetes Other Heart disease Hypertension Social History Smoking and tobacco/nicotine status: former use of tobacco/nicotine Second hand smoke exposure: Yes Alcohol intake: never Substance/Drug Use: current Household members: children Housing: House Marital status: Single Current occupational status: unemployed Vitals/I&O/Wt Last Vital Signs Temp 98.6 F 09/16/23 19:37 Pulse 75 09/16/23 19:37 Resp 18 09/16/23 19:37 BP 116/73 09/16/23 19:37 Pulse Ox 96 09/16/23 19:37 O2 Del Method Room Air 09/16/23 16:13 09/16/23 09/16/23 09/16/23 06:59 14:59 22:59 Intake Total 366.483 / 1783.576 47 / 47 Balance 366.483 / 1783.576 47 / 47 Weight last 48 hrs Weight 60.526 kg Weight 59.466 kg Physical Exam 2 Narrative: Awake alert, no distress HEENT S1-S2 regular rate and rhythm per report Lungs clear per report No pedal edema Data 09/17/23 04:20 09/17/23 04:20 A&P Assessment and plan (1) ESRD (end stage renal disease): Plan 1. End-stage renal disease: On MWF schedule as outpatient, HD today 2. Hypertension, on nitro drip and resume home medications and adjust meds 3. NSTEMI, per cardiology 4. Anemia: MAX with HD Patient evaluated using audiovisual cart. Time spent 40 minutes. Consult Attestations 2 Medical Necessity Statement: per medicine Coding Level of Care Code Acute Code for Chg Fwd Diagnoses ESRD (end stage renal disease) N18.6
[2023-09-16 20:31] LABS: Glucose Point of Care 115 mg/dL (70-110)
[2023-09-16] MEDS: atorvastatin 40 mg Tablet 80 MG PO (20:40)
[2023-09-16 21:16] LABS: Hepatitis B Core AB, Total Non-Reactive (Nonreactive); Hepatitis B Surface Antigen Non-Reactive (Nonreactive)
[2023-09-16] MEDS: heparin, porcine 1,000 unit/mL INJ 10 mL 1000 UNIT IV (21:43)
[2023-09-16] MEDS: heparin, porcine 1,000 unit/mL INJ 10 mL 10000 UNIT INTRACATH (21:44)
[2023-09-17] VITALS (8 sets, daily range): BP systolic 94–121; BP diastolic 58–73; PULSE 71–78; RESP 16–18; TEMP 36.2–36.4; O2SAT 90–91
[2023-09-17] MEDS: oxyCODONE 5 mg IR Tab/Cap PO (03:18)
[2023-09-17 05:15] LABS: Basophils # 0.1 10^3/uL (0.0-0.1); Basophils % 0.6 %; Eosinophils # 0.1 10^3/uL (0.0-0.8); Eosinophils % 0.8 %; Hematocrit 29.4 % (36-47); Lymphocytes # 1.1 10^3/uL (0.8-4.8); Lymphocytes % 10.9 %; Mean Corpuscular HGB Conc 30.3 g/dL (30-55); Mean Corpuscular Hemoglobin 28.2 pg (27-33); Mean Platelet Volume 10.8 fL (7.4-10.4); Monocytes % 9.3 %; Neutrophils # 7.99 10^3/uL (1.8-7.7); Nucleated Red Blood Cells % 0 %; Platelet Count 149 10^3/cmm (157-399); Red Blood Count 3.16 10^6/uL (3.85-5.65); Red Cell Distribution Width 14.5 % (12.1-15.1); White Blood Count 10.23 10^3/uL (3.29-11.43)
[2023-09-17 05:44] LABS: Blood Urea Nitrogen 27 mg/dL (6-20); Calcium 8.7 mg/dL (8.5-10.5); Carbon Dioxide 28 mmol/L (22-29); Chloride 95 mmol/L (98-107); Creatinine Clr Calc Pharmacy 19.8491; Glomerular Filtration Rate 16.9 mL/min (90-130); Glucose 135 mg/dL (65-115); Osmolality Calculated 289 mOsm/kg (285-295); Sodium 136 mmol/L (136-145)
[2023-09-17 05:48] LABS: Anion Gap 17.5 (5-19); Potassium 4.5 mmol/L (3.5-5.1)
[2023-09-17 06:17] LABS: Glucose Point of Care 137 mg/dL (70-110)
--- NOTE | 2023-09-17 07:00 | P.PN_ITS ---
Subjective 2 Subjective: Patient doing well. No chest pain. Vitals/I&O/Wt Last Vital Signs Temp 98.6 F 09/16/23 19:37 Pulse 77 09/17/23 05:22 Resp 16 09/17/23 04:34 BP 113/68 09/17/23 04:34 Pulse Ox 90 09/17/23 04:34 O2 Del Method Room Air 09/16/23 16:13 09/16/23 09/17/23 09/17/23 22:59 06:59 14:59 Intake Total 217 / 217 120 / 337 Balance 217 / 217 120 / 337 Weight last 48 hrs Weight 128 lb 7 oz Weight 133 lb 7 oz Physical Exam 2 Narrative: GENERAL: Patient is alert, awake and oriented x3. [] NECK: No jugular vein distension. [] HEENT: No cyanosis. No icterus. No pallor. [] HEART: Regular S1 and S2. No murmur, rub or gallop. [] LUNGS: Clear to auscultate bilaterally. [] CENTRAL NERVOUS SYSTEM: Grossly nonfocal. [] EXTREMITIES: Lower extremities with 1+ edema bilaterally Data 09/17/23 04:20 09/17/23 04:20 A&P Assessment and plan (1) NSTEMI (non-ST elevated myocardial infarction): (2) Acute non-ST elevation myocardial infarction (NSTEMI): (3) Neurogenic bladder: (4) Diabetic neuropathy associated with type 1 diabetes mellitus: Qualifiers: Diabetes mellitus complication detail: diabetic polyneuropathy Qualified Code(s): E10.42 - Type 1 diabetes mellitus with diabetic polyneuropathy (5) ESRD (end stage renal disease): Plan Patient is stable overall from cardiac standpoint. We will continue with dual antiplatelet therapy. Continue beta-marii. Can be discharged home on isosorbide. Thank you for involving us with care of this patient. Please call with questions Attestations 2 Medical Necessity Statement*: Care expected to cross 2 midnights. Coding Level of Care Code Acute Code for [facility] Diagnoses NSTEMI (non-ST elevated myocardial infarction) I21.4 Acute non-ST elevation myocardial infarction (NSTEMI) I21.4 Neurogenic bladder N31.9 Diabetic polyneuropathy associated with type 1 diabetes mellitus E10.42 Diabetes mellitus complication detail: diabetic polyneuropathy ESRD (end stage renal disease) N18.6
[2023-09-17] MEDS: sevelamer 800 mg Tablet PO (07:37)
[2023-09-17] MEDS: aspirin 81 mg EC Tablet PO (07:37)
[2023-09-17] MEDS: carvedilol 6.25 mg Tablet PO (07:38)
[2023-09-17] MEDS: hyDRALAzine 25 mg Tablet PO (07:38)
[2023-09-17] MEDS: clopidogrel 75 mg Tablet PO (07:38)
[2023-09-17] MEDS: amlodipine 5 mg Tablet PO (07:38)
[2023-09-17] MEDS: sennosides-docusate Tablet 1 TAB PO (07:38)
[2023-09-17] MEDS: isosorbide mononitrate ER 30 mg Tablet 15 MG PO (07:38)
--- NOTE | 2023-09-17 11:00 | XR_ITS ---
WS: [id number] Exam: XR chest 1V portable [id number] Date/Time of Exam: 09/17/2023 11:01 AM Reason For Exam: shortness of breath Comparison 09/13/2023. The lungs are fully expanded and clear. The heart is not enlarged. The mediastinum is normal in conto ur. Signs of coronary artery stenting. Right-sided double-lumen central line ends at the cavoatrial j unction. Regional bony elements are intact. IMPRESSION: 1. No acute cardiopulmonary finding. Overall, no change since the last exam. 2. Right-sided central line in satisfactory location.
[2023-09-17 11:18] LABS: Glucose Point of Care 126 mg/dL (70-110)
--- NOTE | 2023-09-17 11:44 | PM.DCS ---
Discharge Providers Date of Admission: 09/13/23 23:41 Date of Discharge: September 17, 2023 Attending Provider at Admission: Austin Che MD Attending Provider at Discharge: Aleksandra Garcia MD Diagnoses at Discharge Discharge Diagnosis (1) NSTEMI (non-ST elevated myocardial infarction): Status: Acute (2) Acute non-ST elevation myocardial infarction (NSTEMI): Status: Acute (3) Neurogenic bladder: Status: Acute (4) Diabetic neuropathy associated with type 1 diabetes mellitus: Status: Chronic Qualifiers: Diabetes mellitus complication detail: diabetic polyneuropathy Qualified Code(s): E10.42 - Type 1 diabetes mellitus with diabetic polyneuropathy (5) ESRD (end stage renal disease): Status: Acute Reason for Visit Reason for Visit: cp left arm kidney pain karley pt today Brief History: Donita Aguilar is a 38 year old female with history of coronary disease, status post 3 stents, end-stage renal disease, diabetes, hypertension, presented today with chief complaint of chest pain. 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 She did not experience diaphoresis, nausea, vomiting but endorsing shortness of breath. She does not use oxygen at baseline. Does not smoke or drink alcohol these days. In the ER she has been diagnosed with non-STEMI Heparin drip initiated She is hypertensive Diastolic blood pressures above 110 I will start nitroglycerin drip admit to [facility] No active chest pain at the time of my evaluation Hospital Course Hospital Course Patient presented to the hospital with NSTEMI. Patient does have a history of PCI 2 years ago at [facility]. She was placed on ACS protocol. Was kept on heparin drip. Due to persistent chest pain she was taken to cardiac cath. Had patent LAD/diagonal artery stents. RCA is TRAINING PROFESSIONAL with good collateral flow. LCx is small to medium sized vessel with subtotal occlusion in mid segment. Had difficulty wearing therefore balloon angioplasty was performed. This vessel has distal collaterals 2. Dissection was noted post ballooning. As vessel size was not large and had flow and had collaterals medical management was opted at this time. Patient has remained chest pain-free since procedure. She is doing well. She did complain of right leg pain day after procedure however ultrasound groin did not reveal any hematoma or evidence of dissection or bleed. Patient's regular dialysis sessions are Saturday. She was dialyzed on 09/16/2023. She has been stable and cleared from cardiology for discharge. She will be discharged home in stable condition today to follow-up with cardiology as an outpatient. She does not have a certified scrub tech here in [place] therefore will be set up with 1. She will go on aspirin Plavix, atorvastatin, Coreg. Her Lantus has been discontinued as her blood sugars have been stable. She will only go home on a sliding scale. She will also need to see endocrinology at discharge. Physical Exam Narrative: General: Awake alert oriented, no acute distress. HEENT: PERRLA, pupils bilaterally equal and reactive, pallors not present Chest: Normal vesicular breath sounds, no added sounds, equal good air entry bilaterally CVS: S1-S2 regular, no murmurs, no tachycardia, no gallops, no rubs Abdomen: Soft, nontender, no organomegaly, bowel sounds present Right groin area no fluctuance or hematoma noted. Neuro: No focal deficits, no facial deformity, AO x3, bilateral feet are well-perfused, pulses intact. Discharge Data Studies Completed and Pending Completed Studies During Hospitalization Category Date Time Status XR chest 1V portable [id number] Stat Exams 09/13/23 21:08 Completed CV. echo complete* [id number] Routine Ultrasound 09/14/23 00:50 Completed US arterial duplex groin RT [CV arterial dup groin RT Ultrasound 09/16/23 14:25 Completed [id number]] Routine Pending at discharge Category Date Time Status RELIABILITY SPECIALIST request for service Routine Exams 09/14/23 15:31 Taken XR chest 1V portable [id number] Routine Exams 09/17/23 11:00 Taken C.Diff PCR (Lab) Routine Lab 09/14/23 14:08 Uncollected Laboratory Results WBC 10.23 10^3/uL (3.29-11.43) 09/17/23 04:20 RBC 3.16 10^6/uL (3.85-5.65) L 09/17/23 04:20 Hgb 8.90 g/dL (11.27-16.99) L 09/17/23 04:20 Hct 29.4 % (36-47) L 09/17/23 04:20 MCV 93.0 fl (85-98) 09/17/23 04:20 MCH 28.2 pg (27-33) 09/17/23 04:20 MCHC 30.3 g/dL (30-55) 09/17/23 04:20 RDW 14.5 % (12.1-15.1) 09/17/23 04:20 Plt Count 149 10^3/cmm (157-399) L 09/17/23 04:20 MPV 10.8 fL (7.4-10.4) H 09/17/23 04:20 Neut % (Auto) 78.0 % 09/17/23 04:20 Lymph % (Auto) 10.9 % 09/17/23 04:20 [place] % (Auto) 9.3 % 09/17/23 04:20 Eos % (Auto) 0.8 % 09/17/23 04:20 Baso % (Auto) 0.6 % 09/17/23 04:20 Neut # (Auto) 7.99 10^3/uL (1.8-7.7) H 09/17/23 04:20 Lymph # (Auto) 1.1 10^3/uL (0.8-4.8) 09/17/23 04:20 [place] # (Auto) 1.0 10^3/uL (0.2-0.9) H 09/17/23 04:20 Eos # (Auto) 0.1 10^3/uL (0.0-0.8) 09/17/23 04:20 Baso # (Auto) 0.1 10^3/uL (0.0-0.1) 09/17/23 04:20 Nucleated RBC % (auto) 0 % 09/17/23 04:20 Nucleated RBCs # 0.0 /100WBC 09/17/23 04:20 APTT 38.9 SECONDS (23.9-36.7) H 09/15/23 17:09 D-Dimer 0.85 ug/mLFEU (0-0.59) H 09/13/23 23:59 Sodium 136 mmol/L (136-145) 09/17/23 04:20 Potassium 4.5 mmol/L (3.5-5.1) 09/17/23 04:20 Chloride 95 mmol/L (98-107) L 09/17/23 04:20 Carbon Dioxide 28 mmol/L (22-29) 09/17/23 04:20 Anion Gap 17.5 (5-19) 09/17/23 04:20 BUN 27 mg/dL (6-20) H 09/17/23 04:20 Creatinine 3.1 mg/dL (0.5-0.9) H 09/17/23 04:20 GFR Calculation 16.9 mL/min (90-130) L 09/17/23 04:20 Glucose 135 mg/dL (65-115) H 09/17/23 04:20 POC Glucose 126 mg/dL (70-110) H 09/17/23 11:14 Estimat Average Glucose 140 09/14/23 06:15 Hemoglobin A1c 6.5 % (4.0-6.0) H 09/14/23 06:15 Calculated Osmolality 289 mOsm/kg (285-295) 09/17/23 04:20 Calcium 8.7 mg/dL (8.5-10.5) 09/17/23 04:20 Phosphorus 4.1 mg/dL (2.5-4.5) 09/14/23 06:15 Magnesium 1.7 mg/dL (1.7-2.3) 09/14/23 06:15 Total Bilirubin 0.2 mg/dL (0.15-1.2) 09/16/23 02:47 AST 19 U/L (0-32) 09/16/23 02:47 ALT 22 U/L (0-33) 09/16/23 02:47 Alkaline Phosphatase 96 U/L (35-105) 09/16/23 02:47 Troponin T Baseline 268 ng/L (0-10) H* 09/14/23 14:50 Troponin T 120 Minute 259.2 ng/L (0-10) H 09/14/23 19:14 Delta Troponin T -8.8 ABS# (0-10) L 09/14/23 19:14 Troponin T Hi Sens 6Hr 271.8 ng/L (0-10) H 09/14/23 20:15 Troponin T Hi Sens 6Hr Delta 3.8 ng/L (0-12) 09/14/23 20:15 Total Protein 5.9 g/dL (6.6-8.7) L 09/16/23 02:47 Albumin 2.6 g/dL (3.5-5.2) L 09/16/23 02:47 Globulin 3.3 g/dL (1.3-4.6) 09/16/23 02:47 Urine Color Yellow (Yellow) 09/14/23 21:35 Urine Appearance Clear (CLEAR) 09/14/23 21:35 Urine pH 8 (5-7) H 09/14/23 21:35 Ur Specific [place] 1.010 (1.005-1.030) 09/14/23 21:35 Urine Protein 3+ (Negative) H 09/14/23 21:35 Urine Glucose (UA) 2+ (Normal) H 09/14/23 21:35 Urine Ketones Negative (Negative) 09/14/23 21:35 Urine Blood 3+ (Negative) H 09/14/23 21:35 Urine Nitrate Negative (Negative) 09/14/23 21:35 Urine Bilirubin Neg (Negative) 09/14/23 21:35 Prot Sulfosalicylic Acd Positive (Negative) 09/14/23 21:35 Urine Urobilinogen Neg mg/dL (Negative) 09/14/23 21:35 Ur Leukocyte Esterase Trace (Negative) H 09/14/23 21:35 Urine RBC 0-4 /hpf (0-2) H 09/14/23 21:35 Urine WBC 5-10 /hpf (0-5) H 09/14/23 21:35 Ur Squamous Epith Cells 5-10 /hpf (0-5) H 09/14/23 21:35 Amorphous Sediment Trace /hpf 09/14/23 21:35 Urine Bacteria Trace /hpf (NONE) 09/14/23 21:35 Urine Mucus Trace /hpf 09/14/23 21:35 Hep Bs Antigen Non-reactive (Nonreactive) 09/16/23 04:00 Hep Bs Antibody 37.0 (11.5-1000) 09/16/23 04:00 Hep B Core Total Ab Non-reactive (Nonreactive) 09/16/23 04:00 Vitals Last Vital Signs Temp 97.1 F L 09/17/23 08:00 Pulse 76 09/17/23 10:09 Resp 16 09/17/23 10:09 BP 121/73 09/17/23 08:00 Pulse Ox 90 09/17/23 10:09 O2 Del Method Room Air 09/17/23 10:09 Discharge Plan Discharge Patient Disposition: Home Condition: Stable Prescriptions: New atorvastatin 40 mg Tablet 80 mg PO BEDTIME Qty: 60 0RF carvedilol 6.25 mg Tablet 6.25 mg PO BID Qty: 60 0RF hydralazine 25 mg Tablet 25 mg PO TID Qty: 90 0RF aspirin 81 mg Tablet,Delayed Release (Dr/Ec) 81 mg PO DAILY Qty: 30 0RF sevelamer carbonate 800 mg Tablet 800 mg PO TID Qty: 90 0RF Continued (DME) Dexcom G6 Community Health Director Misc See Rx Instructions .Route Qty: 1 0RF Rx Instructions: As directed (DME) Dexcom G6 Sensor Device See Rx Instructions .Route Qty: 3 0RF Rx Instructions: As directed (DME) Dexcom G6 Transmitter Device See Rx Instructions .Route Qty: 1 0RF Rx Instructions: As directed albuterol sulfate 90 mcg/actuation HFA aerosol inhaler 2 puff inhalation Q6H PRN (Reason: shortness of breath or wheezing) insulin aspart U-100 [Novolog FlexPen U-100 Insulin] 100 unit/mL (3 mL) Insulin Pen See Rx Instructions .ROUTE .COMPLEX Qty: 1 3RF Rx Instructions: sliding scale tid Breo Ellipta 100-25 mcg/dose Blister With Device 1 inh INHALATION DAILY amlodipine 5 mg Tablet 5 mg PO DAILY Nitrostat 0.4 mg Tablet, Sublingual 0.4 mg SUBLINGUAL Q5M PRN (Reason: Chest Pain) Rx Instructions: do not exceed 3 doses per episode clopidogrel 75 mg tablet 75 mg PO DAILY Qty: 30 1RF Discontinued insulin glargine [Lantus Solostar U-100 Insulin] 100 unit/mL (3 mL) insulin pen 5 unit SUBCUT BEDTIME atorvastatin 20 mg tablet 20 mg PO BEDTIME metoprolol succinate 100 mg Tablet Extended Release 24 Hr 100 mg PO DAILY Discharge Orders: Discharge Order (Routine); Ordered 09/17/23 Ordered By: Aleksandra Garcia Referrals: Riccardo Burch M.D [Physician] - 10/02/23 () Elza Carranza FNP [Nurse Practitioner] - 10/02/23 2:00 pm () Tyrell Ortega MD [Physician] - 09/26/23 12:15 pm () Discharge Diet: As Directed Patient Instructions: Heart Failure (DC), Coronary Angioplasty (DC), Dialysis Diet (DC), Hemodialysis (DC), CHF Stoplight, Opioid Safety, Post Heart Attack Stoplight Activity Restrictions/Additional Instructions: Renal dialysis diet. Discharge Attestations Time Spent in Discharge Care*: greater than 30 min Status at Discharge: Cognitive status at discharge: cognitively intact, Behavioral status at discharge: cooperative and independent in ADL's, Quality Metrics Clinical Quality Measures [ No reported AMI, CVA or VTE this stay] Coding Level of Care Code Acute Code for Chg Fwd Diagnoses NSTEMI (non-ST elevated myocardial infarction) I21.4 Acute non-ST elevation myocardial infarction (NSTEMI) I21.4 Neurogenic bladder N31.9 Diabetic polyneuropathy associated with type 1 diabetes mellitus E10.42 Diabetes mellitus complication detail: diabetic polyneuropathy ESRD (end stage renal disease) N18.6
--- NOTE | 2023-09-17 13:45 | PC.HD ---
Addendum entered by Avelino Ramirez RN 09/17/23 13:50: Note for treatment on 09/16/23: Original Note: Recurring hypotension in spite of albumin administration and decreased machine temp precluded reaching fluid removal goal, Dr Paulson aware. Pt also had nausea, headache, and pain with treatment, some of which was present prior to treatment.
--- NOTE | 2023-09-17 14:16 | PC.NURSE ---
Discharge Note Patient discharged to home via private vehicle accompanied by mother. Discharge instructions reviewed with patient and/or transportation services representative. Mobile pharmacy medications and/or prescriptions provided. Belongings/home medications returned.
--- NOTE | 2023-09-17 22:40 | P.PN_ITS ---
Subjective 2 Subjective: feels better Medications: Reviewed: Yes Vitals/I&O/Wt Last Vital Signs Temp 97.5 F L 09/17/23 14:17 Pulse 72 09/17/23 14:17 Resp 18 09/17/23 14:17 BP 94/58 09/17/23 14:17 Pulse Ox 90 09/17/23 14:17 O2 Del Method Room Air 09/17/23 12:23 09/17/23 09/17/23 09/17/23 06:59 14:59 22:59 Intake Total 120 / 937 240 / 240 Balance 120 / -8 240 / 240 Weight last 48 hrs Weight 58.258 kg Weight 58.7 kg Weight 60.526 kg Physical Exam 2 Narrative: Awake alert, no distress HEENT S1-S2 regular rate and rhythm per report Lungs clear per report No pedal edema Data 09/17/23 04:20 09/17/23 04:20 A&P Assessment and plan (1) ESRD (end stage renal disease): Plan 1. End-stage renal disease: On MWF schedule as outpatient, 2. Hypertension, on nitro drip and resume home medications and adjust meds 3. NSTEMI, per cardiology 4. Anemia: MAX with HD Patient evaluated using audiovisual cart. Time spent 40 minutes. Attestations 2 Medical Necessity Statement*: per wilson Coding Level of Care Code Acute Code for Chg Fwd Diagnoses ESRD (end stage renal disease) N18.6
== END 2023-09-17 14:17 | disposition home or self-care (01) | DRG 250 ==
LOC: ER 23:44 → CSU 09-14 00:21 → ICU 09-14 15:44 → MEDSURG 09-15 14:09
PROVIDERS: Hospitalist; Internal Medicine; Student in an Organized Health Care Education/Training Program; Admitting Provider Internal Medicine; Emergency Provider Internal Medicine; Visit Provider Internal Medicine
PROC: 02703ZZ Dilation of Coronary Artery, One Artery, Percutaneous Approach (ICD-10-PCS; principal; 2023-09-14 15:00)
PROC: 02703ZZ Dilation of Coronary Artery, One Artery, Percutaneous Approach (ICD-10-PCS; 2023-09-14 15:00)
DX: I21.4 Non-ST elevation (NSTEMI) myocardial infarction (principal); N18.6 End stage renal disease; I16.1 Hypertensive emergency; I12.0 Hypertensive chronic kidney disease with stage 5 chronic kidney disease or end stage renal disease; E10.21 Type 1 diabetes mellitus with diabetic nephropathy; Z79.4 Long term (current) use of insulin; D63.1 Anemia in chronic kidney disease; Z87.891 Personal history of nicotine dependence; Z99.2 Dependence on renal dialysis; E78.5 Hyperlipidemia, unspecified; Z79.02 Long term (current) use of antithrombotics/antiplatelets; I25.10 Atherosclerotic heart disease of native coronary artery without angina pectoris; Z95.5 Presence of coronary angioplasty implant and graft
CPT/HCPCS: 36415; 36416; 71045; 80048; 80053; 81001; 82962; 83036; 83735; 84100; 84484; 85025; 85347; 85378; 85730; 86705; 86706; 87340; 90935; 92920; 93005; 93306; 93458; 93926; 96365; 96366; 96367; 96372; 96374; 96375; 96376; 99152; 99153; 99285; C1725; C1760; C1769; C1887; C1894; J1610; J1644; J1815; J2250; J2270; J2405; J3010; J3490; J7030; J7060; P9047; Q3014; Q9967

== ENCOUNTER 2023-09-21 03:07 | Emergency (ER) | payer MEDICAID, SELFPAY ==
[2023-09-21] VITALS (64 sets, daily range): BP systolic 97–142; BP diastolic 60–91; PULSE 65–77; RESP 0–19; TEMP 36.9; O2SAT 88–99
--- NOTE | 2023-09-21 03:14 | ECG_ITS ---
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 Measurements Intervals [place] Rate: 70 P: 3 WV: 181 QRS: -22 QRSD: 112 T: 60 QT: 381 QTc: 411 Interpretive Statements SINUS RHYTHM BORDERLINE LEFT AXIS DEVIATION [QRS AXIS < -20] MODERATE INTRAVENTRICULAR CONDUCTION DELAY [110+ ms QRS DURATION] NONSPECIFIC ST & T-WAVE ABNORMALITY Compared to ECG 09/14/2023 20:37:13 Intraventricular conduction delay now present T-wave abnormality still present Electronically Signed On 09-21-2023 11:08:08 CDT by Gilberto Eugene M.D. [email or web address]
--- NOTE | 2023-09-21 03:29 | XRR_ITS ---
PROCEDURE INFORMATION: Exam: XR Chest Exam date and time: 09/21/2023 3:33 AM Age: 38 years old Clinical indication: Pain; Shortness of breath; Chest pressure; Prior surgery; Surgery date: 6+ months; Surgery type: Dialysis cath. Left lower lobectomy. Gb. Patient HX: Substernal cp with SOB; Additional info: Cxp TECHNIQUE: Imaging protocol: Radiologic exam of the chest. Views: 1 view. COMPARISON: CR XR chest 1V portable [id number] 09/17/2023 10:19 AM FINDINGS: Tubes, catheters and devices: Dual lumen central catheter with distal tip at the right atrium. Lungs: Likely artifactual lucency about the lateral lung field. Pleural spaces: Unchanged left diaphragmatic flattening and costophrenic angle obscuration. Heart/Mediastinum: Dilated cardiac silhouette, similar to prior comparisons, slightly more prominent on today's examination which may be due to patient positioning. Bones/joints: Unremarkable. XR/XR chest 1V portable [id number] IMPRESSION: Stable examination from 09/17/2023, detailed above.
[2023-09-21] MEDS: aspirin 81 mg Chew Tablet 324 MG PO (03:37)
[2023-09-21 03:38] LABS: Basophils # 0.1 10^3/uL (0.0-0.1); Basophils % 1.1 %; Eosinophils # 0.5 10^3/uL (0.0-0.8); Eosinophils % 7.2 %; Hematocrit 32.8 % (36-47); Lymphocytes # 1.6 10^3/uL (0.8-4.8); Lymphocytes % 22.1 %; Mean Corpuscular HGB Conc 30.8 g/dL (30-55); Mean Corpuscular Volume 90.9 fl (85-98); Mean Platelet Volume 10.7 fL (7.4-10.4); Monocytes # 0.7 10^3/uL (0.2-0.9); Monocytes % 9.5 %; Neutrophils # 4.22 10^3/uL (1.8-7.7); Neutrophils % 59.8 %; Nucleated Red Blood Cells % 0 %; Platelet Count 269 10^3/cmm (157-399); Red Blood Count 3.61 10^6/uL (3.85-5.65); Red Cell Distribution Width 13.7 % (12.1-15.1); White Blood Count 7.06 10^3/uL (3.29-11.43)
--- NOTE | 2023-09-21 03:40 | W.ED.CHESTPA ---
Documented by User: Brien Washington MD 09/21/23 07:53 HPI - Chest Pain General: Chief Complaint: Chest Pain Stated Complaint: Chest Pain,Sob,Weakness Time Seen by Provider: 09/21/23 03:29 History of Present Illness: 38-year-old female presents emergency department with complaints of chest pain that started this morning and woke her from sleep. She states the chest pain is a 3 out of 10 sharp to the left side of her chest that is nonradiating. Patient was seen and admitted on 09/13/2023 for chest pain at that time. Patient did receive an echocardiogram on her admission and demonstrated normal left ventricle size, LV systolic function normal with a EF of 50 to 55% and no regional wall motion abnormalities at that time. She did have grade 2 diastolic dysfunction. During the patient's previous hospital admission she did receive a coronary angiogram that had a patent LAD/diagonal artery stents. RCA is DIRECTOR OF DIAGNOSTIC IMAGING with good collateral flow LCx is small with subtotal occlusion of the mid segment the vessel did have distal collaterals. Patient has a past medical history of chronic renal failure and is on dialysis-Saturday, Saturday, Saturday. Associated symptoms: Deny abdominal pain, dyspnea, nausea or vomiting Review of Systems General: Reports: 10 or more systems reviewed and unremarkable except in HPI and below Card: Reports: chest pain Resp: Denies: dyspnea or non-productive cough GI: Denies: abdominal pain, nausea or vomiting PFSH ED PFSH: Medical History Intractable nausea and vomiting Diabetic gastroparesis Acute cystitis with hematuria CKD (chronic kidney disease) stage 3, GFR 30-59 ml/min ERICA (acute kidney injury) CHF (congestive heart failure), NYHA class III Pulmonary hypertension CAD (coronary artery disease) Neurogenic bladder Acute kidney injury superimposed on chronic kidney disease Metabolic acidosis COVID-19 Tobacco dependence Drug abuse Anemia Community acquired pneumonia Acute hyperglycemia Esophagitis Complicated UTI (urinary tract infection) Transaminitis Long-term insulin use History of pancreatitis Hyperlipidemia Celiac disease Recurrent UTI Non-alcoholic fatty liver disease Arnold-Chiari malformation Diabetic gastroparesis -continue Reglan Diabetic neuropathy associated with type 1 diabetes mellitus Headache, common migraine, intractable, with status migrainosus Cystitis Pleural effusion 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 Uncontrolled type 1 diabetes mellitus Lymphadenitis Ureterolithiasis Pyelonephritis PID (pelvic inflammatory disease) Anxiety Sepsis Respiratory failure HTN (hypertension) Pancreatitis DKA (diabetic ketoacidoses) Migraine headache Chronic headache Surgical History History of lung surgery -s/p LLL lobectomy secondary to cavitary pneumonia (2017) History of endoscopy History of cholecystectomy Family History Grandfather Diabetes Other Heart disease Hypertension Social History Smoking and tobacco/nicotine status: former use of tobacco/nicotine Second hand smoke exposure: Yes Alcohol intake: never Substance/Drug Use: current Household members: children Housing: House Marital status: Single Current occupational status: unemployed Physical Exam Narrative: EXAM NARRATIVE: Constitutional: the patient appears well nourished and with normal development. Vital signs reviewed as documented. HENMT: Normocephalic, atraumatic. External ears normal appearance without drainage. Nose without drainage, normal appearance. Mucus membranes moist. Neck is supple, No jugular venous distension, trachea is midline, no appreciable carotid bruits. No lymphadenopathy. No meningeal signs. Flexion, extension and lateral rotation is without pain. Eyes: Pupils are equal, round, reactive to light and accommodation. No scleral icterus. Extra-ocular movement are intact. Thorax is symmetrical and with equal rise and fall with respirations. Resp: Lungs are clear to auscultation. No wheezes, rales, crackles or ronchi at present. Cardio: Regular rate and rhythm. Positive S1, S2. No appreciable murmurs, rubs or gallops. GI: Abdominal exam reveals normal bowel sounds to all quadrants. No organomegaly. No obvious palpable masses noted. No hepatomegally appreciated. Soft, non-tender to palpation. Extremity: Extremities are non-edematous and both femoral and pedal pulses are 2+ and equal bilaterally. Moves all extremities well, sensation in all extremities. Neuro: Alert and oriented x4, person, place, time and situation. Cranial nerves II through XII are grossly intact, there is no focal neurological deficits that I can appreciate at present. Sensation intact to all extremities. 2-point discrimination intact. Light touch intact to all extremities. Motor strength in the upper and lower extremities are equal and bilateral 5/5. Psych: Cooperative, calm, normal thought process, appropriate judgment. Skin: No lesions, rashes. No gross abnormalities noted. Back: Symmetrical, no obvious deformity, No CVA tenderness Course Vital Signs: Vital signs: Vital Signs Temperature 98.5 F 09/21/23 03:10 Pulse Rate 69 09/21/23 07:30 Respiratory Rate 16 09/21/23 07:30 Blood Pressure 140/83 09/21/23 07:30 Pulse Oximetry 94 09/21/23 07:30 Oxygen Delivery Me thod Room Air 09/21/23 06:01 MDM - Chest Pain Medical Decision Making Physical exam completed and documented, I will obtain serial cardiac enzymes, serial twelve-lead EKGs, chest x-ray, CBC, CMP, urinalysis, B-type natriuretic peptide, PT/PTT/INR, and a chest x-ray. I will provide cardiac dose aspirin. I have reviewed previous and pertinent medical records for assist in obtaining beneficial medical information to improved the care and treatment of the patient. Differential diagnosis-NSTEMI, noncardiac chest pain, pulmonary embolism, electrolyte abnormality, costochondritis, pericarditis, viral illness CBC today demonstrated hemoglobin of 10.1 hematocrit of 32.8. I have discussed the patient's case with the on-coming physician <Dr. Douglas > and they have assumed care of the patient. We have discussed the current lab/radiographic results that have been resulted and the pending tests. Medical Records I reviewed the patient's medical records. Lab Data I reviewed the patient's lab results. 09/21/23 03:16 09/21/23 03:16 Radiology Impressions Chest X-Ray 09/21/23 03:29 IMPRESSION: Stable examination from 09/17/2023, detailed above. Laboratory Results WBC 7.06 10^3/uL (3.29-11.43) 09/21/23 03:16 RBC 3.61 10^6/uL (3.85-5.65) L 09/21/23 03:16 Hgb 10.10 g/dL (11.27-16.99) L 09/21/23 03:16 Hct 32.8 % (36-47) L 09/21/23 03:16 MCV 90.9 fl (85-98) 09/21/23 03:16 MCH 28.0 pg (27-33) 09/21/23 03:16 MCHC 30.8 g/dL (30-55) 09/21/23 03:16 RDW 13.7 % (12.1-15.1) 09/21/23 03:16 Plt Count 269 10^3/cmm (157-399) 09/21/23 03:16 MPV 10.7 fL (7.4-10.4) H 09/21/23 03:16 Neut % (Auto) 59.8 % 09/21/23 03:16 Lymph % (Auto) 22.1 % 09/21/23 03:16 Bee % (Auto) 9.5 % 09/21/23 03:16 Eos % (Auto) 7.2 % 09/21/23 03:16 Baso % (Auto) 1.1 % 09/21/23 03:16 Neut # (Auto) 4.22 10^3/uL (1.8-7.7) 09/21/23 03:16 Lymph # (Auto) 1.6 10^3/uL (0.8-4.8) 09/21/23 03:16 Bee # (Auto) 0.7 10^3/uL (0.2-0.9) 09/21/23 03:16 Eos # (Auto) 0.5 10^3/uL (0.0-0.8) 09/21/23 03:16 Baso # (Auto) 0.1 10^3/uL (0.0-0.1) 09/21/23 03:16 Nucleated RBC % (auto) 0 % 09/21/23 03:16 Nucleated RBCs # 0.0 /100WBC 09/21/23 03:16 PT 12.50 SECONDS (12.1-14.9) 09/21/23 03:16 INR 0.91 (0.8-1.2) 09/21/23 03:16 Sodium 139 mmol/L (136-145) 09/21/23 03:16 Potassium 4.0 mmol/L (3.5-5.1) 09/21/23 03:16 Chloride 98 mmol/L (98-107) 09/21/23 03:16 Carbon Dioxide 30 mmol/L (22-29) H 09/21/23 03:16 Anion Gap 15.0 (5-19) 09/21/23 03:16 BUN 18 mg/dL (6-20) 09/21/23 03:16 Creatinine 2.9 mg/dL (0.5-0.9) H 09/21/23 03:16 GFR Calculation 18.3 mL/min (90-130) L 09/21/23 03:16 Glucose 271 mg/dL (65-115) H 09/21/23 03:16 Calculated Osmolality 299 mOsm/kg (285-295) H 09/21/23 03:16 Calcium 9.0 mg/dL (8.5-10.5) 09/21/23 03:16 Total Bilirubin 0.2 mg/dL (0.15-1.2) 09/21/23 03:16 AST 13 U/L (0-32) 09/21/23 03:16 ALT 11 U/L (0-33) 09/21/23 03:16 Alkaline Phosphatase 134 U/L (35-105) H 09/21/23 03:16 Troponin T Baseline 377 ng/L (0-10) H* 09/21/23 03:16 Troponin T 120 Minute 331.6 ng/L (0-10) H 09/21/23 04:50 Delta Troponin T -45.4 ABS# (0-10) L 09/21/23 04:50 NT-Pro-B Natriuret Pep 46302 pg/mL (0-125) H 09/21/23 03:16 Total Protein 7.7 g/dL (6.6-8.7) 09/21/23 03:16 Albumin 3.2 g/dL (3.5-5.2) L 09/21/23 03:16 Globulin 4.5 g/dL (1.3-4.6) 09/21/23 03:16 All radiology interpretation(s) finalized by discharge Discharge Plan Discharge Patient Disposition: Admitted As Inpatient Clinical Impression: Atypical chest pain, CAD (coronary artery disease) Condition: Stable Discharge Diet: Cardiac Discharge Activity: Resume usual activity Coding Level of Care Code ED Chief Design Engineer for Chg Fwd Documented by User: Pramod Douglas DO 09/21/23 08:35 HPI - Chest Pain General: Chief Complaint: Chest Pain Stated Complaint: Chest Pain,Sob,Weakness Time Seen by Provider: 09/21/23 03:29 PFSH ED PFSH: Medical History Intractable nausea and vomiting Diabetic gastroparesis Acute cystitis with hematuria CKD (chronic kidney disease) stage 3, GFR 30-59 ml/min ERICA (acute kidney injury) CHF (congestive heart failure), NYHA class III Pulmonary hypertension CAD (coronary artery disease) Neurogenic bladder Acute kidney injury superimposed on chronic kidney disease Metabolic acidosis COVID-19 Tobacco dependence Drug abuse Anemia Community acquired pneumonia Acute hyperglycemia Esophagitis Complicated UTI (urinary tract infection) Transaminitis Long-term insulin use History of pancreatitis Hyperlipidemia Celiac disease Recurrent UTI Non-alcoholic fatty liver disease Arnold-Chiari malformation Diabetic gastroparesis -continue Reglan Diabetic neuropathy associated with type 1 diabetes mellitus Headache, common migraine, intractable, with status migrainosus Cystitis Pleural effusion 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 Uncontrolled type 1 diabetes mellitus Lymphadenitis Ureterolithiasis Pyelonephritis PID (pelvic inflammatory disease) Anxiety Sepsis Respiratory failure HTN (hypertension) Pancreatitis DKA (diabetic ketoacidoses) Migraine headache Chronic headache Surgical History History of lung surgery -s/p LLL lobectomy secondary to cavitary pneumonia (2016) History of endoscopy History of cholecystectomy Family History Grandfather Diabetes Other Heart disease Hypertension Social History Smoking and tobacco/nicotine status: former use of tobacco/nicotine Second hand smoke exposure: Yes Alcohol intake: never Substance/Drug Use: current Household members: children Housing: House Marital status: Single Current occupational status: unemployed Course Vital Signs: Vital signs: Vital Signs Temperature 98.5 F 09/21/23 03:10 Pulse Rate 69 09/21/23 07:30 Respiratory Rate 16 09/21/23 07:30 Blood Pressure 140/83 09/21/23 07:30 Pulse Oximetry 94 09/21/23 07:30 Oxygen Delivery Me thod Room Air 09/21/23 06:01 MDM - Chest Pain Lab Data 09/21/23 03:16 09/21/23 03:16 Radiology Impressions Chest X-Ray 09/21/23 03:29 IMPRESSION: Stable examination from 09/17/2023, detailed above. Laboratory Results WBC 7.06 10^3/uL (3.29-11.43) 09/21/23 03:16 RBC 3.61 10^6/uL (3.85-5.65) L 09/21/23 03:16 Hgb 10.10 g/dL (11.27-16.99) L 09/21/23 03:16 Hct 32.8 % (36-47) L 09/21/23 03:16 MCV 90.9 fl (85-98) 09/21/23 03:16 MCH 28.0 pg (27-33) 09/21/23 03:16 MCHC 30.8 g/dL (30-55) 09/21/23 03:16 RDW 13.7 % (12.1-15.1) 09/21/23 03:16 Plt Count 269 10^3/cmm (157-399) 09/21/23 03:16 MPV 10.7 fL (7.4-10.4) H 09/21/23 03:16 Neut % (Auto) 59.8 % 09/21/23 03:16 Lymph % (Auto) 22.1 % 09/21/23 03:16 Bee % (Auto) 9.5 % 09/21/23 03:16 Eos % (Auto) 7.2 % 09/21/23 03:16 Baso % (Auto) 1.1 % 09/21/23 03:16 Neut # (Auto) 4.22 10^3/uL (1.8-7.7) 09/21/23 03:16 Lymph # (Auto) 1.6 10^3/uL (0.8-4.8) 09/21/23 03:16 Bee # (Auto) 0.7 10^3/uL (0.2-0.9) 09/21/23 03:16 Eos # (Auto) 0.5 10^3/uL (0.0-0.8) 09/21/23 03:16 Baso # (Auto) 0.1 10^3/uL (0.0-0.1) 09/21/23 03:16 Nucleated RBC % (auto) 0 % 09/21/23 03:16 Nucleated RBCs # 0.0 /100WBC 09/21/23 03:16 PT 12.50 SECONDS (12.1-14.9) 09/21/23 03:16 INR 0.91 (0.8-1.2) 09/21/23 03:16 Sodium 139 mmol/L (136-145) 09/21/23 03:16 Potassium 4.0 mmol/L (3.5-5.1) 09/21/23 03:16 Chloride 98 mmol/L (98-107) 09/21/23 03:16 Carbon Dioxide 30 mmol/L (22-29) H 09/21/23 03:16 Anion Gap 15.0 (5-19) 09/21/23 03:16 BUN 18 mg/dL (6-20) 09/21/23 03:16 Creatinine 2.9 mg/dL (0.5-0.9) H 09/21/23 03:16 GFR Calculation 18.3 mL/min (90-130) L 09/21/23 03:16 Glucose 271 mg/dL (65-115) H 09/21/23 03:16 Calculated Osmolality 299 mOsm/kg (285-295) H 09/21/23 03:16 Calcium 9.0 mg/dL (8.5-10.5) 09/21/23 03:16 Total Bilirubin 0.2 mg/dL (0.15-1.2) 09/21/23 03:16 AST 13 U/L (0-32) 09/21/23 03:16 ALT 11 U/L (0-33) 09/21/23 03:16 Alkaline Phosphatase 134 U/L (35-105) H 09/21/23 03:16 Troponin T Baseline 377 ng/L (0-10) H* 09/21/23 03:16 Troponin T 120 Minute 331.6 ng/L (0-10) H 09/21/23 04:50 Delta Troponin T -45.4 ABS# (0-10) L 09/21/23 04:50 NT-Pro-B Natriuret Pep 51578 pg/mL (0-125) H 09/21/23 03:16 Total Protein 7.7 g/dL (6.6-8.7) 09/21/23 03:16 Albumin 3.2 g/dL (3.5-5.2) L 09/21/23 03:16 Globulin 4.5 g/dL (1.3-4.6) 09/21/23 03:16 Other Data Spoke with Stefani, housekeeping director about admission for this patient. Dialysis nurse states that there is enough distally and equipment to dialyze this patient in an emergency situation. Subsequently spoke with Dr. Carrera who agreed to admit the patient to cardiac stepdown unit for observation given her chest pain and recent cardiac procedure. Cardiology recommending observation for med management. Discharge Plan Discharge Patient Disposition: Admitted As Inpatient Clinical Impression: Atypical chest pain, CAD (coronary artery disease) Condition: Stable Discharge Diet: Cardiac Discharge Activity: Resume usual activity Coding Level of Care Code ED Chief Design Engineer for Reji Chandler
[2023-09-21 03:43] LABS: INR 0.91 (0.8-1.2)
[2023-09-21 03:53] LABS: Troponin(5th) Baseline 377 ng/L (0-10)
[2023-09-21 03:57] LABS: Alanine Aminotransferase 11 U/L (0-33); Albumin Level 3.2 g/dL (3.5-5.2); Alkaline Phosphatase 134 U/L (35-105); Aspartate Amino Transferase 13 U/L (0-32); Blood Urea Nitrogen 18 mg/dL (6-20); Carbon Dioxide 30 mmol/L (22-29); Chloride 98 mmol/L (98-107); Creatinine Clr Calc Pharmacy 20.5761; Globulin 4.5 g/dL (1.3-4.6); Glomerular Filtration Rate 18.3 mL/min (90-130); Glucose 271 mg/dL (65-115); Osmolality Calculated 299 mOsm/kg (285-295); Sodium 139 mmol/L (136-145); Total Bilirubin 0.2 mg/dL (0.15-1.2); Total Protein 7.7 g/dL (6.6-8.7)
[2023-09-21 04:17] LABS: NT Pro B Type Natriuretic Pept 65138 pg/mL (0-125)
[2023-09-21] MEDS: nitroglycerin 1 gm/inch oint Pkt 1 INCH TOPICAL (04:19)
[2023-09-21 05:17] LABS: Troponin 5 2HR 331.6 ng/L (0-10); Troponin 5 2HR Delta -45.4 ABS# (0-10)
--- NOTE | 2023-09-21 05:29 | ECG_ITS ---
[facility] Test Date: 2023-09-21 Pat Name: Donita Aguilar Department: Room: Gender: Female Time Study Analyst: : 1985 Requested By: Brien Washington Order Number: [id number] Faviola MD: Gilberto Eugene M.D. Measurements Intervals [place] Rate: 69 P: 17 MN: 160 QRS: -21 QRSD: 119 T: 45 QT: 380 QTc: 410 Interpretive Statements SINUS RHYTHM BORDERLINE LEFT AXIS DEVIATION [QRS AXIS < -20] MODERATE INTRAVENTRICULAR CONDUCTION DELAY [110+ ms QRS DURATION] NONSPECIFIC T-WAVE ABNORMALITY Compared to ECG 09/21/2023 03:11:57 No significant changes Electronically Signed On 09-21-2023 11:13:44 CDT by Gilberto Eugene M.D. [id number]
[2023-09-21] MEDS: ondansetron 2 mg/ML SDV 2 mL 4 MG IVP (07:29)
[2023-09-21] MEDS: morphine 4 mg/mL SDV 1 mL IVP ×2 (07:30→12:58)
[2023-09-21 09:16] LABS: ABG PCO2 48.1 mmHg (35-45); ABG PH Result 7.46 (7.35-7.45); Arterial Blood Gas Hematocrit 26.9 % (37-47); Base Excess ABG 8.9 mmol/L (-2.0-2.0); Blood Gas Allen Test Pos; Blood Gas Operator Identificat glc; Blood Gas Sample Site Radial, right; Blood Gas Sample Type Arterial; HCO3 ABG 33.8 mmol/L (22-26); Oxygen Device ROOM AIR; PO2 ABG 56.8 mmHg (80.0-100.0); PO2 FiO2 Ratio Arterial Blood 0
--- NOTE | 2023-09-21 09:37 | P.TS_ITS ---
Transfer Summary Providers Date of Admission: 09/21/23 08:23 Date of Discharge/Transfer: 10/15/23 Attending Provider at Admission: Shola Carrera MD Attending Provider at Transfer: Shola Carrera MD Transfer Plans: Anticipated date of transfer: 10/15/23 . Reason for Visit Reason for Visit Chest Pain,Sob,Weakness Hospital Course Hospital Course Patient presented to [facility] for chest pain, shortness of breath, fluid overload, due to issues of availability of dialysis materials here at [facility] patient, we are on short supply of dialysate, recommend transfer to tertiary level center that has dialysis readily available TS Data Studies Completed and Pending Pending at discharge Category Date Time Status CRP [C Reactive Protein] Routine Lab 09/21/23 09:00 Ordered Erythrocyte Sedimentation Rate Routine Lab 09/21/23 09:01 Ordered Procalcitonin Routine Lab 09/21/23 09:00 Ordered Troponin(5th) 6 hour. Timed Lab 09/21/23 09:16 Ordered Completed Studies During Hospitalization Category Date Time Status XR chest 1V portable [id number] Stat Exams 09/21/23 03:29 Completed Laboratory Last Values WBC 7.06 10^3/uL (3.29-11.43) 09/21/23 03:16 RBC 3.61 10^6/uL (3.85-5.65) L 09/21/23 03:16 Hgb 10.10 g/dL (11.27-16.99) L 09/21/23 03:16 Hct 32.8 % (36-47) L 09/21/23 03:16 MCV 90.9 fl (85-98) 09/21/23 03:16 MCH 28.0 pg (27-33) 09/21/23 03:16 MCHC 30.8 g/dL (30-55) 09/21/23 03:16 RDW 13.7 % (12.1-15.1) 09/21/23 03:16 Plt Count 269 10^3/cmm (157-399) 09/21/23 03:16 MPV 10.7 fL (7.4-10.4) H 09/21/23 03:16 Neut % (Auto) 59.8 % 09/21/23 03:16 Lymph % (Auto) 22.1 % 09/21/23 03:16 [place] % (Auto) 9.5 % 09/21/23 03:16 Eos % (Auto) 7.2 % 09/21/23 03:16 Baso % (Auto) 1.1 % 09/21/23 03:16 Neut # (Auto) 4.22 10^3/uL (1.8-7.7) 09/21/23 03:16 Lymph # (Auto) 1.6 10^3/uL (0.8-4.8) 09/21/23 03:16 [place] # (Auto) 0.7 10^3/uL (0.2-0.9) 09/21/23 03:16 Eos # (Auto) 0.5 10^3/uL (0.0-0.8) 09/21/23 03:16 Baso # (Auto) 0.1 10^3/uL (0.0-0.1) 09/21/23 03:16 Nucleated RBC % (auto) 0 % 09/21/23 03:16 Nucleated RBCs # 0.0 /100WBC 09/21/23 03:16 PT 12.50 SECONDS (12.1-14.9) 09/21/23 03:16 INR 0.91 (0.8-1.2) 09/21/23 03:16 Specimen Type Arterial 09/21/23 09:07 Sample Site Radial, right 09/21/23 09:07 ABG pH 7.46 (7.35-7.45) H 09/21/23 09:07 ABG pCO2 48.1 mmHg (35-45) H 09/21/23 09:07 ABG pO2 56.8 mmHg (80.0-100.0) L 09/21/23 09:07 ABG PO2/FiO2 Ratio 0 09/21/23 09:07 ABG HCO3 33.8 mmol/L (22-26) H 09/21/23 09:07 ABG Base Excess 8.9 mmol/L (-2.0-2.0) H 09/21/23 09:07 Braulio Test Pos 09/21/23 09:07 Hematocrit 26.9 % (37-47) L 09/21/23 09:07 O2 Delivery Device Room air 09/21/23 09:07 FiO2 21.0 % 09/21/23 09:07 Maintenance Craftsman ID glc 09/21/23 09:07 Sodium 139 mmol/L (136-145) 09/21/23 03:16 Potassium 4.0 mmol/L (3.5-5.1) 09/21/23 03:16 Chloride 98 mmol/L (98-107) 09/21/23 03:16 Carbon Dioxide 30 mmol/L (22-29) H 09/21/23 03:16 Anion Gap 15.0 (5-19) 09/21/23 03:16 BUN 18 mg/dL (6-20) 09/21/23 03:16 Creatinine 2.9 mg/dL (0.5-0.9) H 09/21/23 03:16 GFR Calculation 18.3 mL/min (90-130) L 09/21/23 03:16 Glucose 271 mg/dL (65-115) H 09/21/23 03:16 Calculated Osmolality 299 mOsm/kg (285-295) H 09/21/23 03:16 Calcium 9.0 mg/dL (8.5-10.5) 09/21/23 03:16 Total Bilirubin 0.2 mg/dL (0.15-1.2) 09/21/23 03:16 AST 13 U/L (0-32) 09/21/23 03:16 ALT 11 U/L (0-33) 09/21/23 03:16 Alkaline Phosphatase 134 U/L (35-105) H 09/21/23 03:16 Troponin T Baseline 377 ng/L (0-10) H* 09/21/23 03:16 Troponin T 120 Minute 331.6 ng/L (0-10) H 09/21/23 04:50 Delta Troponin T -45.4 ABS# (0-10) L 09/21/23 04:50 NT-Pro-B Natriuret Pep 33432 pg/mL (0-125) H 09/21/23 03:16 Total Protein 7.7 g/dL (6.6-8.7) 09/21/23 03:16 Albumin 3.2 g/dL (3.5-5.2) L 09/21/23 03:16 Globulin 4.5 g/dL (1.3-4.6) 09/21/23 03:16 Radiology Impressions Chest X-Ray 03/30/24 03:29 IMPRESSION: Stable examination from 09/17/2023, detailed above. Recent Clincial Data Last Vital Signs Temp 98.5 F 09/21/23 03:10 Pulse 67 09/21/23 08:35 Resp 1 L 09/21/23 08:35 BP 120/74 09/21/23 08:35 Pulse Ox 92 09/21/23 08:35 O2 Del Method Room Air 09/21/23 06:01 Vital Signs Temp Pulse Resp BP Pulse Ox O2 Del Method 09/21/23 08:35 67 1 L 120/74 92 09/21/23 08:30 67 0 L 121/80 89 L 09/21/23 08:25 67 0 L 121/80 92 09/21/23 08:20 67 3 L 121/80 95 09/21/23 08:15 67 0 L 117/74 09/21/23 08:10 68 0 L 117/74 96 09/21/23 08:05 69 2 L 117/74 96 09/21/23 08:00 68 0 L 113/75 92 09/21/23 07:57 69 3 L 113/75 93 09/21/23 07:30 69 140/83 94 09/21/23 07:30 16 96 09/21/23 07:00 67 138/84 96 09/21/23 06:01 77 14 131/85 95 Room Air 09/21/23 04:22 71 16 142/84 97 Room Air 09/21/23 04:19 71 142/84 09/21/23 03:19 69 12 139/75 97 Room Air 09/21/23 03:10 98.5 F 73 19 H 142/90 99 Intake & Output/Weight 09/19/23 09/20/23 09/21/23 09/22/23 06:59 06:59 06:59 06:59 Weight 54.431 kg Vitals Last Vital Signs Temp 98.5 F 09/21/23 03:10 Pulse 67 09/21/23 08:35 Resp 1 L 09/21/23 08:35 BP 120/74 09/21/23 08:35 Pulse Ox 92 09/21/23 08:35 O2 Del Method Room Air 09/21/23 06:01 TS Medications Medications Discontinued Medications Aspirin (Aspirin 81 Mg Chew Tablet) 324 mg PO ONCE ONE Stop: 09/21/23 03:30 Last Admin: 09/21/23 03:37 Dose: 324 mg Morphine Sulfate (Morphine 4 Mg/Ml Sdv 1 Ml) 4 mg IVP ONCE ONE Stop: 09/21/23 07:12 Last Admin: 09/21/23 07:30 Dose: 4 mg Nitroglycerin (Nitroglycerin 1 Gm/Inch Oint Pkt) 1 inch TOPICAL ONCE ONE Stop: 09/21/23 04:10 Last Admin: 09/21/23 04:19 Dose: 1 inch Ondansetron HCl (Ondansetron 2 Mg/Ml Sdv 2 Ml) 4 mg IVP ONCE ONE Stop: 09/21/23 07:12 Last Admin: 09/21/23 07:29 Dose: 4 mg Allergies acetaminophen Adverse Reaction (Mild, Verified 09/21/23 03:15) ADR-Gastrointestinal Upset Home Medications albuterol sulfate 90 mcg/actuation aerosol inhaler 2 puff inhalation Q6H PRN shortness of breath or wheezing 02/07/22 [History Confirmed 09/21/23] insulin aspart U-100 100 unit/mL (3 mL) subcutaneous pen (Novolog FlexPen U-100 Insulin aspart) See Rx Instructions .Route .COMPLEX #1 ea 06/07/22 [Rx Confirmed 09/21/23] blood-glucose meter,continuous (Dexcom G6 Photo Technician) #1 ea 06/12/22 [Rx Confirmed 09/21/23] blood-glucose sensor (Dexcom G6 Sensor device) #3 ea 06/12/22 [Rx Confirmed 09/21/23] blood-glucose transmitter (Dexcom G6 Transmitter device) #1 ea 06/12/22 [Rx Confirmed 09/21/23] fluticasone furoate 100 mcg-vilanterol 25 mcg/dose inhalation powder (Breo Ellipta) 1 inh inhalation DAILY 09/14/23 [History Confirmed 09/21/23] nitroglycerin 0.4 mg sublingual tablet (Nitrostat) 0.4 mg sublingual Q5M PRN Chest Pain 09/14/23 [History Confirmed 09/21/23] aspirin 81 mg tablet,delayed release 81 mg PO DAILY #30 tabs 09/16/23 [Rx Confirmed 09/21/23] atorvastatin 40 mg tablet 80 mg (2 x 40 mg) PO BEDTIME #60 tabs 09/16/23 [Rx Confirmed 09/21/23] carvedilol 6.25 mg tablet 6.25 mg PO BID #60 tabs 09/16/23 [Rx Confirmed 09/21/23] clopidogrel 75 mg tablet 75 mg PO DAILY #30 tabs 09/16/23 [Rx Confirmed 09/21/23] hydralazine 25 mg tablet 25 mg PO TID #90 tabs 09/16/23 [Rx Confirmed 09/21/23] sevelamer carbonate 800 mg tablet 800 mg PO TID #90 tabs 09/16/23 [Rx Confirmed 09/21/23] Discharge Plan Discharge Patient Disposition: Xfer Intermediate Care Fac Clinical Impression: Atypical chest pain, CAD (coronary artery disease) Condition: Stable Prescriptions: No Action (DME) Dexcom G6 Photo Technician Misc See Rx Instructions .Route Qty: 1 0RF Rx Instructions: As directed (DME) Dexcom G6 Sensor Device See Rx Instructions .Route Qty: 3 0RF Rx Instructions: As directed (DME) Dexcom G6 Transmitter Device See Rx Instructions .Route Qty: 1 0RF Rx Instructions: As directed albuterol sulfate 90 mcg/actuation HFA aerosol inhaler 2 puff inhalation Q6H PRN (Reason: shortness of breath or wheezing) insulin aspart U-100 [Novolog FlexPen U-100 Insulin] 100 unit/mL (3 mL) Insulin Pen See Rx Instructions .ROUTE .COMPLEX Qty: 1 3RF Rx Instructions: Take per sliding scale three times daily fluticasone furoate-vilanterol [Breo Ellipta] 100-25 mcg/dose Blister With Device 1 inh INHALATION DAILY nitroglycerin [Nitrostat] 0.4 mg Tablet, Sublingual 0.4 mg SUBLINGUAL Q5M PRN (Reason: Chest Pain) Rx Instructions: do not exceed 3 doses per episode atorvastatin 40 mg Tablet 80 mg PO BEDTIME Qty: 60 0RF carvedilol 6.25 mg Tablet 6.25 mg PO BID Qty: 60 0RF hydralazine 25 mg Tablet 25 mg PO TID Qty: 90 0RF aspirin 81 mg Tablet,Delayed Release (Dr/Ec) 81 mg PO DAILY Qty: 30 0RF sevelamer carbonate 800 mg Tablet 800 mg PO TID Qty: 90 0RF clopidogrel 75 mg tablet 75 mg PO DAILY Qty: 30 1RF Discharge Diet: Cardiac Discharge Activity: Resume usual activity Patient Instructions: Opioid Safety Transfer Attestations Time Spent in Transfer Care: less than 30 min Status at Transfer: Cognitive status at transfer: cognitively intact ; Behavioral status at transfer: cooperative and independent in ADL's ; Quality Metrics Clinical Quality Measures [ No reported AMI, CVA or VTE this stay] Coding Level of Care Code Acute Code for Reji Chandler
[2023-09-21 10:07] LABS: Erythrocyte Sedimentation Rate 73 mm/hr (0-15)
[2023-09-21 10:13] LABS: C Reactive Protein 50.6 mg/L (0.0-4.9)
[2023-09-21 10:38] LABS: Troponin 5 6HR 329.3 ng/L (0-10); Troponin 5 6HR Delta -47.7 ng/L (0-12)
[2023-09-21] MEDS: cefTRIAXone 1,000 MG in sodium chloride 0.9% (plus) 50 ML 100 MG IV (11:44)
[2023-09-21] MEDS: azithromycin 500 MG in sodium chloride 0.9% 250 ML 250 MG IV (13:01)
== END 2023-09-21 14:48 | disposition intermediate care facility (04) ==
PROVIDERS: Family Medicine; Internal Medicine; Emergency Provider General Practice
DX: R07.89 Other chest pain (principal); I25.10 Atherosclerotic heart disease of native coronary artery without angina pectoris; E10.22 Type 1 diabetes mellitus with diabetic chronic kidney disease; I13.0 Hypertensive heart and chronic kidney disease with heart failure and stage 1 through stage 4 chronic kidney disease, or unspecified chronic kidney disease; N18.30 Chronic kidney disease, stage 3 unspecified; I50.9 Heart failure, unspecified; E78.5 Hyperlipidemia, unspecified; Z87.891 Personal history of nicotine dependence
CPT/HCPCS: 36415; 36600; 71045; 80053; 82803; 83880; 84145; 84484; 85025; 85610; 85651; 86140; 93005; 96365; 96367; 96375; 96376; 99285; J0456; J0696; J2270; J2405; J7050

== ENCOUNTER 2023-10-07 21:29 | Emergency (ER) | payer MEDICAID, SELFPAY ==
--- NOTE | 2023-10-07 21:30 | XRR_ITS ---
PROCEDURE INFORMATION: Exam: XR Chest Exam date and time: 10/07/2023 9:48 PM Age: 38 years old Clinical indication: Shortness of breath; Prior surgery; Surgery date: 6+ months; Surgery type: Dialysis cath; Additional info: SOB TECHNIQUE: Imaging protocol: Radiologic exam of the chest. Views: 1 view. COMPARISON: CR (CHEST, ) 09/21/2023 3:33 AM FINDINGS: Tubes, catheters and devices: Right-sided dialysis catheter. Lungs: Bibasilar atelectasis versus minimal infiltrate. Emphysematous changes. Pleural spaces: Small bilateral pleural effusions. Heart/Mediastinum: Unremarkable. No cardiomegaly. Bones/joints: Unremarkable. XR/XR chest 1V portable [id number] IMPRESSION: 1. Small bilateral pleural effusions. 2. Bibasilar atelectasis versus minimal infiltrate. 3. Emphysematous changes. 4. Right-sided dialysis catheter.
--- NOTE | 2023-10-07 21:30 | ECG_ITS ---
[facility] Test Date: 2023-10-07 Pat Name: Donita Aguilar Department: Room: Gender: Female Director Of Retail: : 1985 Requested By: Ronny Ayala Order Number: [id number] Faviola MD: Riccardo Burch M.D. Measurements Intervals [place] Rate: 73 P: 40 ND: 152 QRS: -10 QRSD: 100 T: 156 QT: 398 QTc: 441 Interpretive Statements SINUS RHYTHM POSSIBLE LEFT ATRIAL ENLARGEMENT [-0.1mV P-WAVE IN V1/V2] NONSPECIFIC ST & T-WAVE ABNORMALITY Compared to ECG 09/21/2023 05:42:20 Intraventricular conduction delay no longer present T-wave abnormality still present Electronically Signed On 10-08-2023 12:29:22 CDT by Riccardo Burch M.D. [id number] f
[2023-10-07 21:44] VITALS: BP 132/79; PULSE 74; RESP 16; TEMP 36.9; O2SAT 99
[2023-10-07 22:09] LABS: Basophils # 0.1 10^3/uL (0.0-0.1); Basophils % 1.3 %; Eosinophils # 0.2 10^3/uL (0.0-0.8); Eosinophils % 2.6 %; Hematocrit 34.2 % (36-47); Lymphocytes # 1.1 10^3/uL (0.8-4.8); Lymphocytes % 17.6 %; Mean Corpuscular Hemoglobin 27.5 pg (27-33); Mean Corpuscular Volume 88.8 fl (85-98); Mean Platelet Volume 9.4 fL (7.4-10.4); Monocytes # 0.4 10^3/uL (0.2-0.9); Monocytes % 7.1 %; Neutrophils # 4.32 10^3/uL (1.8-7.7); Neutrophils % 71.1 %; Nucleated Red Blood Cells % 0 %; Platelet Count 247 10^3/cmm (157-399); Red Blood Count 3.85 10^6/uL (3.85-5.65); Red Cell Distribution Width 13.9 % (12.1-15.1); White Blood Count 6.08 10^3/uL (3.29-11.43)
[2023-10-07 22:17] LABS: INR 1.01 (0.8-1.2)
[2023-10-07 22:32] LABS: Alanine Aminotransferase 73 U/L (0-33); Albumin Level 3.4 g/dL (3.5-5.2); Alkaline Phosphatase 137 U/L (35-105); Anion Gap 12.7 (5-19); Aspartate Amino Transferase 38 U/L (0-32); Blood Urea Nitrogen 17 mg/dL (6-20); Calcium 8.8 mg/dL (8.5-10.5); Carbon Dioxide 32 mmol/L (22-29); Chloride 101 mmol/L (98-107); Globulin 4.4 g/dL (1.3-4.6); Glomerular Filtration Rate 25.1 mL/min (90-130); Glucose 169 mg/dL (65-115); Osmolality Calculated 299 mOsm/kg (285-295); Potassium 3.7 mmol/L (3.5-5.1); Sodium 142 mmol/L (136-145); Total Bilirubin 0.3 mg/dL (0.15-1.2); Total Protein 7.8 g/dL (6.6-8.7)
[2023-10-07 23:11] LABS: NT Pro B Type Natriuretic Pept > 70000 pg/mL (0-125)
--- NOTE | 2023-10-08 00:24 | ED_ITS ---
HPI - SOB/Dyspnea 2 General: Chief Complaint: Shortness of Breath/Dyspnea Stated Complaint: sob Time Seen by Provider: 10/07/23 22:48 History of Present Illness: HPI Narrative: 38-year-old female presents emergency de partment with complaints of shortness of breath and left-sided chest wall pain. She states she completes dialysis Saturday and today after she completed her dialysis she felt more short of breath and started having some left-sided chest wall pain. She states her chest wall pain is a 4 out of 10 intermittent and sharp. She denies nausea vomiting fevers chills or night sweats. She was recently seen here in the emergency department on 09/21/2023 and was ultimately transferred to [facility] in [facility] where she underwent angioplasty and had a cardiac stent placed. She advises that she is scheduled to have a another stent placed in the first week of October. Associated symptoms: Reports chest pain Review of Systems 2 General: Reports: 10 or more systems reviewed and unremarkable except in HPI and below Card: Reports: chest pain; Denies: irregular heart rhythm Resp: Reports: dyspnea; Denies: non-productive cough or wheezing PFSH ED 2 PFSH: Medical History Intractable nausea and vomiting Diabetic gastroparesis Acute cystitis with hematuria CKD (chronic kidney disease) stage 3, GFR 30-59 ml/min ERICA (acute kidney injury) CHF (congestive heart failure), NYHA class III Pulmonary hypertension CAD (coronary artery disease) Neurogenic bladder Acute kidney injury superimposed on chronic kidney disease Metabolic acidosis COVID-19 Tobacco dependence Drug abuse Anemia Community acquired pneumonia Acute hyperglycemia Esophagitis Complicated UTI (urinary tract infection) Transaminitis Long-term insulin use History of pancreatitis Hyperlipidemia Celiac disease Recurrent UTI Non-alcoholic fatty liver disease Arnold-Chiari malformation Diabetic gastroparesis -continue Reglan Diabetic neuropathy associated with type 1 diabetes mellitus Headache, common migraine, intractable, with status migrainosus Cystitis Pleural effusion 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 Uncontrolled type 1 diabetes mellitus Lymphadenitis Ureterolithiasis Pyelonephritis PID (pelvic inflammatory disease) Anxiety Sepsis Respiratory failure HTN (hypertension) Pancreatitis DKA (diabetic ketoacidoses) Migraine headache Chronic headache Surgical History History of lung surgery -s/p LLL lobectomy secondary to cavitary pneumonia (2017) History of endoscopy History of cholecystectomy Family History Grandfather Diabetes Other Heart disease Hypertension Social History Smoking and tobacco/nicotine status: former use of tobacco/nicotine Second hand smoke exposure: Yes Alcohol intake: never Substance/Drug Use: current Household members: children Housing: House Marital status: Single Current occupational status: unemployed Physical Exam 2 Narrative: EXAM NARRATIVE: Constitutional: the patient appears well nourished and of normal development. Vital signs as documented. No acute distress at present. Alert and oriented-to person, place, time and situation. Head, eyes, ears, nose, mouth, throat: Normocephalic, atraumatic. Pupils-equal, round, reactive to light. No scleral icterus. Normal-appearing external ears. Normal appearing nasal turbinates, no drainage. No obvious oral lesions, posterior oropharynx without erythema or exudates. Neck: Supple, trachea is midline, no lymphadenopathy, no jugular venous distension, thyromegaly, or carotid bruits. Carotid upstrokes are brisk bilaterally. Lungs: clear to auscultation to all lung torres. Symmetrical rise and fall of chest, no obvious signs of increased work of breathing at present. Cardiac: Regular rate and rhythm, positive S1, S2. No murmurs, rubs or gallops that I can appreciate Abdomen: Soft, non-tender to palpation, normal active bowel sounds to all quadrants. No palpable masses, no organomegaly and abdominal bruits. Extremities: 2+ pulses in the upper extremities that are equal bilaterally, 2+ pulses in the lower extremities that are equal bilaterally. Non-edematous. Moves all extremities well, sensation to all extremities are noted. Skin: Warm, dry, intact. Course 2 Vital Signs: Vital signs: Vital Signs Temperature 98.4 F 10/07/23 21:44 Pulse Rate 74 10/07/23 21:44 Respiratory Rate 16 10/07/23 21:44 Blood Pressure 132/79 10/07/23 21:44 Pulse Oximetry 99 10/07/23 21:44 Oxygen Delivery Me thod Room Air 10/07/23 21:44 MDM - SOB/Dyspnea Medical Decision Making Physical exam completed and documented I did obtain a CBC that demonstrated hemoglobin of 10.6 and hematocrit of 34.2, which is the patient's baseline given her anemia of chronic disease. I also obtained cardiac enzymes and although her initial troponin was elevated at 276 and her second troponin was also elevated she states she is chest pain-free after receiving Toradol intramuscular for her pleuritic chest pain. Review of her medical records demonstrates a significantly downward trending set of cardiac enzymes as her previous cardiac enzymes were over 600. I suspect most likely this elevated cardiac enzyme is a downward trend after she received her cardiac stent on September 21, 2023.. She states she feels much better and states that she will follow-up with her screw machine operator outpatient. I did provide the patient clonidine for her elevated blood pressure here in the emergency department and it did trend down to her normal range. Medical Records I reviewed the patient's medical records. Lab Data I reviewed the patient's lab results. 10/07/23 21:55 10/07/23 21:55 Labs/Radiology: Radiology Impressions Chest X-Ray 10/07/23 21:30 IMPRESSION: 1. Small bilateral pleural effusions. 2. Bibasilar atelectasis versus minimal infiltrate. 3. Emphysematous changes. 4. Right-sided dialysis catheter. Laboratory Results WBC 6.08 10^3/uL (3.29-11.43) 10/07/23 21:55 RBC 3.85 10^6/uL (3.85-5.65) 10/07/23 21:55 Hgb 10.60 g/dL (11.27-16.99) L 10/07/23 21:55 Hct 34.2 % (36-47) L 10/07/23 21:55 MCV 88.8 fl (85-98) 10/07/23 21:55 MCH 27.5 pg (27-33) 10/07/23 21:55 MCHC 31.0 g/dL (30-55) 10/07/23 21:55 RDW 13.9 % (12.1-15.1) 10/07/23 21:55 Plt Count 247 10^3/cmm (157-399) 10/07/23 21:55 MPV 9.4 fL (7.4-10.4) 10/07/23 21:55 Neut % (Auto) 71.1 % 10/07/23 21:55 Lymph % (Auto) 17.6 % 10/07/23 21:55 [place] % (Auto) 7.1 % 10/07/23 21:55 Eos % (Auto) 2.6 % 10/07/23 21:55 Baso % (Auto) 1.3 % 10/07/23 21:55 Neut # (Auto) 4.32 10^3/uL (1.8-7.7) 10/07/23 21:55 Lymph # (Auto) 1.1 10^3/uL (0.8-4.8) 10/07/23 21:55 [place] # (Auto) 0.4 10^3/uL (0.2-0.9) 10/07/23 21:55 Eos # (Auto) 0.2 10^3/uL (0.0-0.8) 10/07/23 21:55 Baso # (Auto) 0.1 10^3/uL (0.0-0.1) 10/07/23 21:55 Nucleated RBC % (auto) 0 % 10/07/23 21: Nucleated RBCs # 0.0 /100WBC 10/07/23 21:55 PT 13.70 SECONDS (12.1-14.9) 10/07/23 21:55 INR 1.01 (0.8-1.2) 10/07/23 21:55 Sodium 142 mmol/L (136-145) 10/07/23 21:55 Potassium 3.7 mmol/L (3.5-5.1) 10/07/23 21:55 Chloride 101 mmol/L (98-107) 10/07/23 21:55 Carbon Dioxide 32 mmol/L (22-29) H 10/07/23 21:55 Anion Gap 12.7 (5-19) 10/07/23 21:55 BUN 17 mg/dL (6-20) 10/07/23 21:55 Creatinine 2.2 mg/dL (0.5-0.9) H 10/07/23 21:55 GFR Calculation 25.1 mL/min (90-130) L 10/07/23 21:55 Glucose 169 mg/dL (65-115) H 10/07/23 21:55 Calculated Osmolality 299 mOsm/kg (285-295) H 10/07/23 21:55 Calcium 8.8 mg/dL (8.5-10.5) 10/07/23 21:55 Total Bilirubin 0.3 mg/dL (0.15-1.2) 10/07/23 21:55 AST 38 U/L (0-32) H 10/07/23 21:55 ALT 73 U/L (0-33) H 10/07/23 21:55 Alkaline Phosphatase 137 U/L (35-105) H 10/07/23 21:55 Troponin T Baseline 276 ng/L (0-10) H* 10/08/23 00:57 Troponin T 120 Minute 294.5 ng/L (0-10) H 10/08/23 03:17 Delta Troponin T 18.5 ABS# (0-10) H* 10/08/23 03:17 NT-Pro-B Natriuret Pep > 39765 pg/mL (0-125) H 10/07/23 21:55 Total Protein 7.8 g/dL (6.6-8.7) 10/07/23 21:55 Albumin 3.4 g/dL (3.5-5.2) L 10/07/23 21:55 Globulin 4.4 g/dL (1.3-4.6) 10/07/23 21:55 All radiology interpretation(s) finalized by discharge EKG Data EKG 2: Interpretation: Twelve-lead EKG obtained at 0 234 and reviewed at 0 235 demonstrates sinus rhythm, ventricular rate 71 FL interval 170, QRS duration 109, QT [address] QTc [address] elevation or depression at present to demonstrate acute ischemia or infarction. Discharge Plan Discharge Patient Disposition: Home Clinical Impression: Pleuritic chest pain, Atypical chest pain, Dyspnea Condition: Stable Prescriptions: No Action (DME) Dexcom G6 Promotional Advertising Assistant Misc See Rx Instructions .Route Qty: 1 0RF Rx Instructions: As directed (DME) Dexcom G6 Sensor Device See Rx Instructions .Route Qty: 3 0RF Rx Instructions: As directed (DME) Dexcom G6 Transmitter Device See Rx Instructions .Route Qty: 1 0RF Rx Instructions: As directed albuterol sulfate 90 mcg/actuation HFA aerosol inhaler 2 puff inhalation Q6H PRN (Reason: shortness of breath or wheezing) insulin aspart U-100 [Novolog FlexPen U-100 Insulin] 100 unit/mL (3 mL) Insulin Pen See Rx Instructions .ROUTE .COMPLEX Qty: 1 3RF Rx Instructions: Take per sliding scale three times daily fluticasone furoate-vilanterol [Breo Ellipta] 100-25 mcg/dose Blister With Device 1 inh INHALATION DAILY nitroglycerin [Nitrostat] 0.4 mg Tablet, Sublingual 0.4 mg SUBLINGUAL Q5M PRN (Reason: Chest Pain) Rx Instructions: do not exceed 3 doses per episode atorvastatin 40 mg Tablet 80 mg PO BEDTIME Qty: 60 0RF carvedilol 6.25 mg Tablet 6.25 mg PO BID Qty: 60 0RF hydralazine 25 mg Tablet 25 mg PO TID Qty: 90 0RF aspirin 81 mg Tablet,Delayed Release (Dr/Ec) 81 mg PO DAILY Qty: 30 0RF sevelamer carbonate 800 mg Tablet 800 mg PO TID Qty: 90 0RF clopidogrel 75 mg tablet 75 mg PO DAILY Qty: 30 1RF Discharge Orders: Discharge ED (Routine); Ordered 10/08/23 Ordered By: Brien Washington Referrals: Elizabeth Dougherty FNP [Primary Care Provider] - Discharge Diet: Usual diet Discharge Activity: Resume usual activity Patient Instructions: Opioid Safety, Pain Management Activity Restrictions/Additional Instructions: Activity Restrictions/Additional Instructions: Thank you for choosing [facility] for your healthcare needs today. Please realize that you were seen in the Emergency Department and that we are providing you with an emergency medical screening exam and this may not be a complete and all inclusive of all the testing and or medical work-up that you may need to determine your ailment or severity of your illness. It is very important that you follow-up as instructed with your Primary care provider or Specialist for additional evaluation and to discuss your medical treatment plan. You may return to the Emergency Department should you have concerns or if your condition changes or worsens in any way. Coding Level of Care Code ED Residential Builder for Reji Chandler
[2023-10-08 01:39] LABS: Troponin(5th) Baseline 276 ng/L (0-10)
--- NOTE | 2023-10-08 02:24 | ECG_ITS ---
[facility] Test Date: 2023-10-08 Pat Name: Donita Aguilar Department: Room: Gender: Female Emt Basic: : 1985 Requested By: Brien Washington Order Number: [id number] Faviola MD: Riccardo Burch M.D. Measurements Intervals [place] Rate: 71 P: 51 ID: 170 QRS: 16 QRSD: 109 T: 89 QT: 440 QTc: 481 Interpretive Statements SINUS RHYTHM POSSIBLE LEFT ATRIAL ENLARGEMENT [-0.1mV P-WAVE IN V1/V2] NONSPECIFIC ST & T-WAVE ABNORMALITY Compared to ECG 10/07/2023 21:40:19 No significant changes Electronically Signed On 10-08-2023 12:30:20 CDT by Riccardo Burch M.D. [id number]
[2023-10-08] MEDS: ketorolac 30 mg/mL INJ IM (02:59)
[2023-10-08 03:45] LABS: Troponin 5 2HR 294.5 ng/L (0-10)
[2023-10-08 03:46] LABS: Troponin 5 2HR Delta 18.5 ABS# (0-10)
[2023-10-08 04:19] VITALS: BP 160/101; PULSE 69; RESP 16; O2SAT 97
[2023-10-08 04:22] VITALS: BP 161/101
[2023-10-08] MEDS: cloNIDine 0.1 mg Tablet 0.100000000000000006 MG PO (04:22)
[2023-10-08 04:42] VITALS: BP 161/101; PULSE 69; RESP 16; TEMP 36.9; O2SAT 97
== END 2023-10-08 04:20 | disposition home or self-care (01) ==
PROVIDERS: Emergency Medicine; Emergency Provider Internal Medicine; PCP Nurse Practitioner Family
DX: R07.89 Other chest pain (principal); R09.1 Pleurisy; R06.00 Dyspnea, unspecified; Z79.02 Long term (current) use of antithrombotics/antiplatelets; Z79.82 Long term (current) use of aspirin; Z79.4 Long term (current) use of insulin; Z87.891 Personal history of nicotine dependence; E10.22 Type 1 diabetes mellitus with diabetic chronic kidney disease; I12.9 Hypertensive chronic kidney disease with stage 1 through stage 4 chronic kidney disease, or unspecified chronic kidney disease; N18.30 Chronic kidney disease, stage 3 unspecified; I25.10 Atherosclerotic heart disease of native coronary artery without angina pectoris
CPT/HCPCS: 36415; 71045; 80053; 83880; 84484; 85025; 85610; 93005; 96372; 99284; J1885

== ENCOUNTER 2023-10-23 01:55 | Emergency (ER) | payer MEDICAID, SELFPAY ==
--- NOTE | 2023-10-23 01:57 | XRR_ITS ---
PROCEDURE INFORMATION: Exam: XR Chest Exam date and time: 10/23/2023 2:11 AM Age: 38 years old Clinical indication: Angina; Prior surgery; Surgery date: 6+ months; Surgery type: Lll, gb; Additional info: Cp TECHNIQUE: Imaging protocol: Radiologic exam of the chest. Views: 1 view. COMPARISON: CR (CHEST, ) 10/07/2023 9:48 PM FINDINGS: Tubes, catheters and devices: Right internal jugular central venous catheter tip projects over the cavoatrial junction. Lungs: Clear, symmetrically inflated lungs. Pleural spaces: No pleural effusion. No pneumothorax. Heart/Mediastinum: Cardiac silhouette is normal in size for technique. Diaphragm: Mild elevation of the left hemidiaphragm is unchanged from prior. There is hazy opacity over the right lung. Bones/joints: Subjective bony demineralization. XR/XR chest 1V portable [id number] IMPRESSION: 1. Hazy opacity at the right lung base could reflect atelectasis or developing pneumonia. 2. Considerable bony demineralization. Correlate with risk factors.
--- NOTE | 2023-10-23 01:57 | ECG_ITS ---
[facility] Test Date: 2023-10-23 Pat Name: Donita Aguilar Department: Room: Gender: Female Manager Marketing Sales: : 1985 Requested By: Ronny Ayala Order Number: [id number] Faviola MD: Riccardo Burch M.D. Measurements Intervals [place] Rate: 72 P: 70 [place]: 175 QRS: 18 QRSD: 105 T: 91 QT: 443 QTc: 485 Interpretive Statements SINUS RHYTHM INDETERMINATE AXIS NONSPECIFIC T-WAVE ABNORMALITY Compared to ECG 10/08/2023 02:34:56 Indeterminate axis now present T-wave abnormality still present Electronically Signed On 10-23-2023 16:50:42 CDT by Riccardo Burch M.D. [id number]
[2023-10-23 02:00] VITALS: BP 181/85; PULSE 73; RESP 16; O2SAT 97; BMI 24.7
--- NOTE | 2023-10-23 02:04 | ED_ITS ---
HPI - Chest Pain 2 General: Chief Complaint: Chest Pain Stated Complaint: CP,SOB Time Seen by Provider: 10/23/23 01:57 Source: patient Mode of arrival: ambulatory Limitations: no limitations History of Present Illness: 38-year-old female very well-known to [facility] ER has multiple medical issues states she been having a sharp chest pain for the last 3 hours. States pain is worse with movement and with touch she denies any dyspnea denies any nausea denies any diaphoresis. Associated symptoms: Deny abdominal pain, dyspnea, fever(s), nausea or vomiting Review of Systems 2 Const: Denies: fever(s), chills, body aches or change in appetite ENMT: Denies: throat pain or dental pain Card: Reports: chest pain Resp: Denies: dyspnea GI: Denies: abdominal pain, nausea, vomiting or diarrhea : Denies: dysuria Musc: Denies: neck pain or back pain Skin/Breast: Denies: rash Neuro: Denies: headache(s) PFSH ED 2 PFSH: Medical History Intractable nausea and vomiting Diabetic gastroparesis Acute cystitis with hematuria CKD (chronic kidney disease) stage 3, GFR 30-59 ml/min ERICA (acute kidney injury) CHF (congestive heart failure), NYHA class III Pulmonary hypertension CAD (coronary artery disease) Neurogenic bladder Acute kidney injury superimposed on chronic kidney disease Metabolic acidosis COVID-19 Tobacco dependence Drug abuse Anemia Community acquired pneumonia Acute hyperglycemia Esophagitis Complicated UTI (urinary tract infection) Transaminitis Long-term insulin use History of pancreatitis Hyperlipidemia Celiac disease Recurrent UTI Non-alcoholic fatty liver disease Arnold-Chiari malformation Diabetic gastroparesis -continue Reglan Diabetic neuropathy associated with type 1 diabetes mellitus Headache, common migraine, intractable, with status migrainosus Cystitis Pleural effusion 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 Uncontrolled type 1 diabetes mellitus Lymphadenitis Ureterolithiasis Pyelonephritis PID (pelvic inflammatory disease) Anxiety Sepsis Respiratory failure HTN (hypertension) Pancreatitis DKA (diabetic ketoacidoses) Migraine headache Chronic headache Surgical History History of lung surgery -s/p LLL lobectomy secondary to cavitary pneumonia (2016) History of endoscopy History of cholecystectomy Family History Grandfather Diabetes Other Heart disease Hypertension Social History Smoking and tobacco/nicotine status: former use of tobacco/nicotine Second hand smoke exposure: Yes Alcohol intake: never Substance/Drug Use: current Household members: children Housing: House Marital status: Single Current occupational status: unemployed Physical Exam 2 Const: COMMON NORMALS: no acute distress, patient oriented x3 and healthy appearing HENMT: COMMON NORMALS: normocephalic and atraumatic HEAD & SCALP: n ormocephalic and atraumatic Neck/C-Spine: COMMON NORMALS: full ROM and supple Chest: COMMONS NORMALS: normal inspection of the chest OTHER: point tender center of chest reproduces pain Resp: COMMON NORMALS: normal respiratory effort, No retractions, No use of accessory muscles and clear to auscultation bilaterally AUSCULTATION: clear to auscultation bilaterally Cardio: COMMON NORMALS: regular rate, regular rhythm and No murmurs present (Cardio) RATE: regular rate RHYTHM: regular rhythm GI: COMMON NORMALS: Normal to inspection, nondistended, normoactive bowel sounds present, Soft to palpation, non-tender and no masses PALPATION: Yes Soft to palpation Extremity: COMMON NORMALS: normal to inspection and full ROM Neuro: COMMON NORMALS: patient oriented x3, moves all extremities and no focal motor deficits Psych: COMMON NORMALS: mental status grossly normal, Normal thought process present and cooperative THOUGHT PROCESS: Normal thought process present Skin: COMMON NORMALS: no rashes or lesions noted and no wounds GENERAL SKIN EXAM: no rashes or lesions noted Course 2 Vital Signs: Vital signs: Vital Signs Pulse Rate 66 10/23/23 03:15 Respiratory Rate 14 10/23/23 03:15 Blood Pressure 181/85 10/23/23 02:05 Pulse Oximetry 95 10/23/23 03:15 Oxygen Delivery Me thod Room Air 10/23/23 03:15 MDM - Chest Pain Medical Decision Making Patient presents chest pain is atypical in nature likely chest wall pain 2-hour troponin is negative she has no signs of ACS she stable for discharge she is follow-up with PCP return if worsening. Medical Records I reviewed the patient's medical records. Lab Data I reviewed the patient's lab results. 10/23/23 02:10 10/23/23 02:34 Radiology Impressions Chest X-Ray 10/23/23 01:57 IMPRESSION: 1. Hazy opacity at the right lung base could reflect atelectasis or developing pneumonia. 2. Considerable bony demineralization. Correlate with risk factors. Laboratory Results WBC 7.86 10^3/uL (3.29-11.43) 10/23/23 02:10 RBC 4.12 10^6/uL (3.85-5.65) 10/23/23 02:10 Hgb 11.40 g/dL (11.27-16.99) 10/23/23 02:10 Hct 36.4 % (36-47) 10/23/23 02:10 MCV 88.3 fl (85-98) 10/23/23 02:10 MCH 27.7 pg (27-33) 10/23/23 02:10 MCHC 31.3 g/dL (30-55) 10/23/23 02:10 RDW 15.1 % (12.1-15.1) 10/23/23 02:10 Plt Count 230 10^3/cmm (157-399) 10/23/23 02:10 MPV 10.7 fL (7.4-10.4) H 10/23/23 02:10 Neut % (Auto) 62.4 % 10/23/23 02:10 Lymph % (Auto) 25.1 % 10/23/23 02:10 [place] % (Auto) 7.8 % 10/23/23 02:10 Eos % (Auto) 3.8 % 10/23/23 02:10 Baso % (Auto) 0.8 % 10/23/23 02:10 Neut # (Auto) 4.91 10^3/uL (1.8-7.7) 10/23/23 02:10 Lymph # (Auto) 2.0 10^3/uL (0.8-4.8) 10/23/23 02:10 [place] # (Auto) 0.6 10^3/uL (0.2-0.9) 10/23/23 02:10 Eos # (Auto) 0.3 10^3/uL (0.0-0.8) 10/23/23 02:10 Baso # (Auto) 0.1 10^3/uL (0.0-0.1) 10/23/23 02:10 Nucleated RBC % (auto) 0 % 10/23/23 02:10 Nucleated RBCs # 0.0 /100WBC 10/23/23 02:10 PT 13.70 SECONDS (12.1-14.9) 10/23/23 02:34 INR 1.02 (0.8-1.2) 10/23/23 02:34 Sodium 136 mmol/L (136-145) 10/23/23 02:34 Potassium 4.2 mmol/L (3.5-5.1) 10/23/23 02:34 Chloride 98 mmol/L (98-107) 10/23/23 02:34 Carbon Dioxide 29 mmol/L (22-29) 10/23/23 02:34 Anion Gap 13.2 (5-19) 10/23/23 02:34 BUN 31 mg/dL (6-20) H 10/23/23 02:34 Creatinine 3.8 mg/dL (0.5-0.9) H 10/23/23 02:34 GFR Calculation 13.4 mL/min (90-130) L 10/23/23 02:34 Glucose 279 mg/dL (65-115) H 10/23/23 02:34 Calculated Osmolality 299 mOsm/kg (285-295) H 10/23/23 02:34 Calcium 8.7 mg/dL (8.5-10.5) 10/23/23 02:34 Total Bilirubin 0.2 mg/dL (0.15-1.2) 10/23/23 02:34 AST 56 U/L (0-32) H 10/23/23 02:34 ALT 91 U/L (0-33) H 10/23/23 02:34 Alkaline Phosphatase 140 U/L (35-105) H 10/23/23 02:34 Troponin T Baseline 315 ng/L (0-10) H* 10/23/23 02:10 Troponin T 120 Minute 312.7 ng/L (0-10) H 10/23/23 04:13 Delta Troponin T -2.3 ABS# (0-10) L 10/23/23 04:13 Total Protein 6.7 g/dL (6.6-8.7) 10/23/23 02:34 Albumin 3.1 g/dL (3.5-5.2) L 10/23/23 02:34 Globulin 3.6 g/dL (1.3-4.6) 10/23/23 02:34 Lipase 29 U/L (13-60) 10/23/23 02:34 All radiology interpretation(s) finalized by discharge EKG Data EKG 1: I personally reviewed and interpreted this EKG as follows: EKG interpretation date: 10/23/23 EKG interpretation time: 02:06 Interpretation: nsr hr [address] or t wave abnormalities qrs 105 qtc 467 Discharge Plan Discharge Patient Disposition: Home Clinical Impression: Chest pain Condition: Stable Prescriptions: No Action (DME) Dexcom G6 Insole And Outsole Preparer Misc See Rx Instructions .Route Qty: 1 0RF Rx Instructions: As directed (DME) Dexcom G6 Sensor Device See Rx Instructions .Route Qty: 3 0RF Rx Instructions: As directed (DME) Dexcom G6 Transmitter Device See Rx Instructions .Route Qty: 1 0RF Rx Instructions: As directed albuterol sulfate 90 mcg/actuation HFA aerosol inhaler 2 puff inhalation Q6H PRN (Reason: shortness of breath or wheezing) insulin aspart U-100 [Novolog FlexPen U-100 Insulin] 100 unit/mL (3 mL) Insulin Pen See Rx Instructions .ROUTE .COMPLEX Qty: 1 3RF Rx Instructions: Take per sliding scale three times daily fluticasone furoate-vilanterol [Breo Ellipta] 100-25 mcg/dose Blister With Device 1 inh INHALATION DAILY nitroglycerin [Nitrostat] 0.4 mg Tablet, Sublingual 0.4 mg SUBLINGUAL Q5M PRN (Reason: Chest Pain) Rx Instructions: do not exceed 3 doses per episode atorvastatin 40 mg Tablet 80 mg PO BEDTIME Qty: 60 0RF carvedilol 6.25 mg Tablet 6.25 mg PO BID Qty: 60 0RF hydralazine 25 mg Tablet 25 mg PO TID Qty: 90 0RF aspirin 81 mg Tablet,Delayed Release (Dr/Ec) 81 mg PO DAILY Qty: 30 0RF sevelamer carbonate 800 mg Tablet 800 mg PO TID Qty: 90 0RF clopidogrel 75 mg tablet 75 mg PO DAILY Qty: 30 1RF Discharge Orders: Discharge ED (Routine); Ordered 10/23/23 Ordered By: Ronny Ayala Referrals: Elizabeth Dougherty FNP [Primary Care Provider] - 4-7 days Discharge Diet: Advance as tolerated Discharge Activity: Resume usual activity Patient Instructions: Chest Pain (ED) Coding Level of Care Code ED Ramp Service Agent for Reji Chandler
[2023-10-23 02:05] VITALS: BP 181/85; PULSE 66; RESP 14; O2SAT 89
[2023-10-23 02:24] LABS: Basophils # 0.1 10^3/uL (0.0-0.1); Basophils % 0.8 %; Eosinophils # 0.3 10^3/uL (0.0-0.8); Eosinophils % 3.8 %; Hematocrit 36.4 % (36-47); Lymphocytes % 25.1 %; Mean Corpuscular HGB Conc 31.3 g/dL (30-55); Mean Corpuscular Hemoglobin 27.7 pg (27-33); Mean Corpuscular Volume 88.3 fl (85-98); Mean Platelet Volume 10.7 fL (7.4-10.4); Monocytes # 0.6 10^3/uL (0.2-0.9); Monocytes % 7.8 %; Neutrophils # 4.91 10^3/uL (1.8-7.7); Neutrophils % 62.4 %; Nucleated Red Blood Cells % 0 %; Platelet Count 230 10^3/cmm (157-399); Red Blood Count 4.12 10^6/uL (3.85-5.65); Red Cell Distribution Width 15.1 % (12.1-15.1); White Blood Count 7.86 10^3/uL (3.29-11.43)
[2023-10-23 02:42] VITALS: RESP 19; O2SAT 98
[2023-10-23] MEDS: morphine 4 mg/mL SDV 1 mL IVP (02:42)
[2023-10-23] MEDS: ondansetron 2 mg/ML SDV 2 mL 4 MG IVP (02:43)
[2023-10-23 02:49] LABS: Troponin(5th) Baseline 315 ng/L (0-10)
[2023-10-23 02:50] LABS: INR 1.02 (0.8-1.2)
[2023-10-23 02:56] LABS: Alanine Aminotransferase 91 U/L (0-33); Albumin Level 3.1 g/dL (3.5-5.2); Alkaline Phosphatase 140 U/L (35-105); Anion Gap 13.2 (5-19); Aspartate Amino Transferase 56 U/L (0-32); Blood Urea Nitrogen 31 mg/dL (6-20); Calcium 8.7 mg/dL (8.5-10.5); Carbon Dioxide 29 mmol/L (22-29); Chloride 98 mmol/L (98-107); Creatinine Clr Calc Pharmacy 16.1092; Globulin 3.6 g/dL (1.3-4.6); Glomerular Filtration Rate 13.4 mL/min (90-130); Glucose 279 mg/dL (65-115); Lipase 29 U/L (13-60); Osmolality Calculated 299 mOsm/kg (285-295); Potassium 4.2 mmol/L (3.5-5.1); Sodium 136 mmol/L (136-145); Total Bilirubin 0.2 mg/dL (0.15-1.2); Total Protein 6.7 g/dL (6.6-8.7)
[2023-10-23 03:15] VITALS: PULSE 66; RESP 14; O2SAT 95
--- NOTE | 2023-10-23 03:51 | ECG_ITS ---
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 Measurements Intervals [place] Rate: 66 P: 33 ME: 183 QRS: -25 QRSD: 105 T: 128 QT: 468 QTc: 492 Interpretive Statements SINUS RHYTHM POSSIBLE LEFT ATRIAL ENLARGEMENT [-0.1mV P-WAVE IN V1/V2] BORDERLINE LEFT AXIS DEVIATION [QRS AXIS < -20] ST DEVIATION AND MODERATE T-WAVE ABNORMALITY, CONSIDER LATERAL ISCHEMIA [-0.1+ mV T-WAVE IN I/aVL/V5/V6] Compared to ECG 10/08/2023 02:34:56 Possible ischemia now present T-wave abnormality still present Electronically Signed On 10-23-2023 16:58:07 CDT by Riccardo Burch M.D. [id number]
[2023-10-23 04:39] LABS: Troponin 5 2HR 312.7 ng/L (0-10); Troponin 5 2HR Delta -2.3 ABS# (0-10)
[2023-10-23 04:58] VITALS: BP 187/85; PULSE 65; RESP 20; O2SAT 93
== END 2023-10-23 04:59 | disposition home or self-care (01) ==
PROVIDERS: Emergency Provider Emergency Medicine; PCP Nurse Practitioner Family
DX: R07.9 Chest pain, unspecified (principal); Z79.4 Long term (current) use of insulin; Z79.82 Long term (current) use of aspirin; Z79.02 Long term (current) use of antithrombotics/antiplatelets; Z87.891 Personal history of nicotine dependence; E10.22 Type 1 diabetes mellitus with diabetic chronic kidney disease; I13.0 Hypertensive heart and chronic kidney disease with heart failure and stage 1 through stage 4 chronic kidney disease, or unspecified chronic kidney disease; N18.30 Chronic kidney disease, stage 3 unspecified; I50.9 Heart failure, unspecified; I25.10 Atherosclerotic heart disease of native coronary artery without angina pectoris; E78.5 Hyperlipidemia, unspecified
CPT/HCPCS: 71045; 80053; 83690; 84484; 85025; 85610; 93005; 96374; 96375; 99285; J2270; J2405

== ENCOUNTER 2023-10-28 16:00 | Outpatient (CLI) | payer MEDICAID, SELFPAY | END 2023-10-28 16:01 | disposition home or self-care (01) | LOC: SLEEP 10-30 16:42 | PROVIDERS: PCP Nurse Practitioner Family; Visit Provider Nurse Practitioner Family | DX: I25.10 Atherosclerotic heart disease of native coronary artery without angina pectoris (principal) | CPT/HCPCS: 94762 ==

== ENCOUNTER 2023-11-09 19:50 | Emergency (ER) | payer MEDICAID, SELFPAY ==
[2023-11-09 20:40] VITALS: BP 163/84; PULSE 78; RESP 17; TEMP 36.6; O2SAT 97; BMI 24.6
--- NOTE | 2023-11-09 20:44 | ECG_ITS ---
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 Measurements Intervals [place] Rate: 77 P: 28 [place]: 170 QRS: 52 QRSD: 103 T: 60 QT: 463 QTc: 525 Interpretive Statements SINUS RHYTHM INDETERMINATE AXIS MODERATE T-WAVE ABNORMALITY, CONSIDER LATERAL ISCHEMIA [-0.1+ mV T-WAVE IN I/aVL/V5/V6] Compared to ECG 10/23/2023 03:51:57 Indeterminate axis now present T-wave abnormality still present Possible ischemia still present Electronically Signed On 11-10-2023 13:30:36 CDT by Eleno Mora M.D. [id number]
--- NOTE | 2023-11-09 23:21 | XRR_ITS ---
PROCEDURE INFORMATION: Exam: XR Chest Exam date and time: 11/09/2023 11:33 PM Age: 38 years old Clinical indication: Chest pressure; Prior surgery; Surgery date: 6+ months; Surgery type: Dialysis cath; Patient HX: C/O chest pain; Additional info: Cp TECHNIQUE: Imaging protocol: Radiologic exam of the chest. Views: 1 view. COMPARISON: CR (CHEST, ) 10/23/2023 2:11 AM FINDINGS: Tubes, catheters and devices: Right IJ approach central fetus catheter positioned with its tip near the upper cavoatrial junction. Lungs: No focal consolidation. Pleural spaces: Small left-sided pleural effusion. Heart/Mediastinum: Unremarkable. No cardiomegaly. Bones/joints: Unremarkable. XR/XR chest 1V portable [id number] IMPRESSION: No focal consolidation.
--- NOTE | 2023-11-09 23:39 | ED_ITS ---
Documented by User: LORE Ramirez 11/10/23 01:36 HPI - Chest Pain 2 General: Chief Complaint: Chest Pain Stated Complaint: pain in right arm/ has a port in same arm Time Seen by Provider: 11/09/23 22:38 Source: patient Mode of arrival: ambulatory Limitations: no limitations History of Present Illness: Patient is a 38-year-old female presenting to the emergency department complaining of right arm pain onset prior to arrival. While in the room she states that the pain travels across her chest, and since then the arm pain has gone away and she is still having the pain to her right chest. Patient has a significantly extensive past medical history including stage III kidney disease on dialysis, last received dialysis on Saturday and states this was without complications. She is denying any breathing difficulties or radiation of the pain, stating it currently is localized just superior to her Port-A-Cath. No palpitations, visual disturbances, syncope, peripheral edema, or other symptoms to report at this time. She does note that her chest is tender to the touch, and upon further inspection immediately in the emergency department there is a palpable cord that feeds to her neck. Ultrasound ordered at this time. EKG did not show any acute ST segment changes while in the waiting room. MD complaint: chest pain Pertinent past history: other (Extensive past medical history) Onset (ago): hour(s) Timing of current episode: constant Prior episodes: No Onset: during rest Pain location: right chest Pain radiation: none Severity: severe Quality: sharp Exacerbating factors: palpation Associated symptoms: Deny abdominal pain, dyspnea, fever(s), nausea, palpitations or vomiting Review of Systems 2 General: Reports: 10 or more systems reviewed and unremarkable except in HPI and below Const: Denies: fever(s), chills or fatigue Eyes: Denies: change in vision ENMT: Denies: throat pain, ear or mastoid pain or nasal discharge Card: Reports: chest pain; Denies: palpitations, swelling of feet/ankles or lightheadedness Resp: Denies: dyspnea, productive cough or wheezing GI: Denies: abdominal pain, nausea, vomiting, diarrhea or constipation : Denies: flank pain, difficulty voiding, dysuria or urinary frequency Musc: Reports: extremity pain; Denies: neck pain, back pain or joint pain Skin/Breast: Denies: rash Neuro: Denies: headache(s), numbness in extremities or weakness in extremities PFSH ED 2 PFSH: Medical History Intractable nausea and vomiting Diabetic gastroparesis Acute cystitis with hematuria CKD (chronic kidney disease) stage 3, GFR 30-59 ml/min ERICA (acute kidney injury) CHF (congestive heart failure), NYHA class III Pulmonary hypertension CAD (coronary artery disease) Neurogenic bladder Acute kidney injury superimposed on chronic kidney disease Metabolic acidosis COVID-19 Tobacco dependence Drug abuse Anemia Community acquired pneumonia Acute hyperglycemia Esophagitis Complicated UTI (urinary tract infection) Transaminitis Long-term insulin use History of pancreatitis Hyperlipidemia Celiac disease Recurrent UTI Non-alcoholic fatty liver disease Arnold-Chiari malformation Diabetic gastroparesis -continue Reglan Diabetic neuropathy associated with type 1 diabetes mellitus Headache, common migraine, intractable, with status migrainosus Cystitis Pleural effusion 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 Uncontrolled type 1 diabetes mellitus Lymphadenitis Ureterolithiasis Pyelonephritis PID (pelvic inflammatory disease) Anxiety Sepsis Respiratory failure HTN (hypertension) Pancreatitis DKA (diabetic ketoacidoses) Migraine headache Chronic headache Surgical History History of lung surgery -s/p LLL lobectomy secondary to cavitary pneumonia (2017) History of endoscopy History of cholecystectomy Family History Grandfather Diabetes Other Heart disease Hypertension Social History Smoking and tobacco/nicotine status: former use of tobacco/nicotine Second hand smoke exposure: Yes Alcohol intake: never Substance/Drug Use: current Household members: children Housing: House Marital status: Single Current occupational status: unemployed Physical Exam 2 Const: COMMON NORMALS: no acute distress, patient oriented x3 and no limitations GENERAL APPEARANCE: cooperative, comfortable and well developed ORIENTATION/CONSCIOUSNESS: Yes awake, Yes oriented to person, Yes oriented to place and Yes oriented to time HENMT: COMMON NORMALS: normocephalic, atraumatic and hearing grossly normal bilaterally HEAD & SCALP: normocephalic and atraumatic Eye: COMMON NORMALS: Equal, round and reactive pupils present, EOMs intact bilaterally and conjunctivae normal CONJUNCTIVA: Yes conjunctivae normal P UPIL: Yes Equal, round and reactive pupils present Neck/C-Spine: COMMON NORMALS: full ROM, supple and no JVD Chest: OTHER: Palpable cord just superior to right Port-A-Cath. No overlying skin changes. The area is significantly tender to the touch. The area appears to feed into the cervical region. Port-A-Cath is present and appears without complications at insertion site. Resp: COMMON NORMALS: normal respiratory effort, No retractions, No use of accessory muscles and clear to auscultation bilaterally AUSCULTATION: clear to auscultation bilaterally Cardio: COMMON NORMALS: no JVD, regular rate, regular rhythm, No clicks present (Cardio), No murmurs present (Cardio) and No rub (Cardio) RATE: r egular rate RHYTHM: regular rhythm GI: COMMON NORMALS: Normal to inspection, nondistended, normoactive bowel sounds present, Soft to palpation and non-tender AUSCULTATION: Yes normoactive bowel sounds PALPATION: Yes Soft to palpation RECTAL EXAM: d eferred Extremity: COMMON NORMALS: normal to inspection, full ROM and capillary refill normal Neuro: COMMON NORMALS: patient oriented x3, moves all extremities, no focal motor deficits and no sensory deficits noted SENSORIUM/ORIENTATION: Yes oriented to person, Yes oriented to place and Yes oriented to time Psych: COMMON NORMALS: mental status grossly normal and Normal thought process present THOUGHT PROCESS: Normal thought process present Skin: COMMON NORMALS: no rashes or lesions noted GENERAL SKIN EXAM: no rashes or lesions noted Course 2 Vital Signs: Vital signs: Vital Signs Temperature 97.9 F 11/09/23 20:40 Pulse Rate 74 11/10/23 01:48 Respiratory Rate 18 11/10/23 01:22 Blood Pressure 116/75 11/10/23 01:48 Pulse Oximetry 98 11/10/23 01:22 Oxygen Delivery Me thod Room Air 11/10/23 00:46 MDM - Chest Pain Medical Decision Making Patient presents for right chest wall pain, initially was right arm pain but switched to chest pain in the waiting room. She has multiple ER visits recently. She is a dialysis patient and states the pain is just superior to her right Port-A-Cath. Upon examination the cath is very tender to palpation and very superficial to the skin, no concern for ACS as her EKG was unremarkable and chest x-ray did not demonstrate any unusual cardiopulmonary findings. She states she has an appointment to have the Port-A-Cath switched, and does note some pain relief after being given IV morphine. Blood pressure elevated to 200 systolic on arrival, most likely due to pain. This was brought down with hydralazine and clonidine. Patient's pain likely due to Port-A-Cath manipulation as she has been using her right arm more than usual lately, and the pain is worsened with any movement of the right arm. She will be sent home with oxycodone for breakthrough pain and instructed to keep her follow-up for portacatheter placement. Patient agrees with plan and return precautions are given. Lab Data 11/09/23 23:42 11/09/23 23:42 Radiology Impressions Chest X-Ray 11/09/23 23:21 IMPRESSION: No focal consolidation. Soft Tissue Ultrasound 11/10/23 00:00 IMPRESSION: Negative exam as discussed above Laboratory Results WBC 9.05 10^3/uL (3.29-11.43) 11/09/23 23:42 RBC 4.10 10^6/uL (3.85-5.65) 11/09/23 23:42 Hgb 11.30 g/dL (11.27-16.99) 11/09/23 23:42 Hct 37.5 % (36-47) 11/09/23 23:42 MCV 91.5 fl (85-98) 11/09/23 23:42 MCH 27.6 pg (27-33) 11/09/23 23:42 MCHC 30.1 g/dL (30-55) 11/09/23 23:42 RDW 15.8 % (12.1-15.1) H 11/09/23 23:42 Plt Count 275 10^3/cmm (157-399) 11/09/23 23:42 MPV 9.4 fL (7.4-10.4) 11/09/23 23:42 Neut % (Auto) 65.9 % 11/09/23 23:42 Lymph % (Auto) 21.8 % 11/09/23 23:42 [place] % (Auto) 7.5 % 11/09/23 23:42 Eos % (Auto) 4.2 % 11/09/23 23:42 Baso % (Auto) 0.4 % 11/09/23 23:42 Neut # (Auto) 5.96 10^3/uL (1.8-7.7) 11/09/23 23:42 Lymph # (Auto) 2.0 10^3/uL (0.8-4.8) 11/09/23 23:42 [place] # (Auto) 0.7 10^3/uL (0.2-0.9) 11/09/23 23:42 Eos # (Auto) 0.4 10^3/uL (0.0-0.8) 11/09/23 23:42 Baso # (Auto) 0.0 10^3/uL (0.0-0.1) 11/09/23 23:42 Nucleated RBC % (auto) 0 % 11/09/23 23:42 Nucleated RBCs # 0.0 /100WBC 11/09/23 23:42 Sodium 139 mmol/L (136-145) 11/09/23 23:42 Potassium 4.2 mmol/L (3.5-5.1) 11/09/23 23:42 Chloride 101 mmol/L (98-107) 11/09/23 23:42 Carbon Dioxide 26 mmol/L (22-29) 11/09/23 23:42 Anion Gap 16.2 (5-19) 11/09/23 23:42 BUN 28 mg/dL (6-20) H 11/09/23 23:42 Creatinine 3.7 mg/dL (0.5-0.9) H 11/09/23 23:42 GFR Calculation 13.8 mL/min (90-130) L 11/09/23 23:42 Glucose 224 mg/dL (65-115) H 11/09/23 23:42 Calculated Osmolality 300 mOsm/kg (285-295) H 11/09/23 23:42 Calcium 8.6 mg/dL (8.5-10.5) 11/09/23 23:42 Total Bilirubin 0.2 mg/dL (0.15-1.2) 11/09/23 23:42 AST 93 U/L (0-32) H 11/09/23 23:42 ALT 77 U/L (0-33) H 11/09/23 23:42 Alkaline Phosphatase 168 U/L (35-105) H 11/09/23 23:42 Total Protein 7.4 g/dL (6.6-8.7) 11/09/23 23:42 Albumin 3.1 g/dL (3.5-5.2) L 11/09/23 23:42 Globulin 4.3 g/dL (1.3-4.6) 11/09/23 23:42 All radiology interpretation(s) finalized by discharge Discharge Plan Discharge Patient Disposition: Home Clinical Impression: Anterior chest wall pain Condition: Stable Prescriptions: New oxycodone 15 mg tablet 15 mg PO Q8H PRN (Reason: pain) Qty: 7 0RF No Action (DME) Dexcom G6 Steam Bone Press Tender Misc See Rx Instructions .Route Qty: 1 0RF Rx Instructions: As directed (DME) Dexcom G6 Sensor Device See Rx Instructions .Route Qty: 3 0RF Rx Instructions: As directed (DME) Dexcom G6 Transmitter Device See Rx Instructions .Route Qty: 1 0RF Rx Instructions: As directed albuterol sulfate 90 mcg/actuation HFA aerosol inhaler 2 puff inhalation Q6H PRN (Reason: shortness of breath or wheezing) insulin aspart U-100 [Novolog FlexPen U-100 Insulin] 100 unit/mL (3 mL) Insulin Pen See Rx Instructions .ROUTE .COMPLEX Qty: 1 3RF Rx Instructions: Take per sliding scale three times daily fluticasone furoate-vilanterol [Breo Ellipta] 100-25 mcg/dose Blister With Device 1 inh INHALATION DAILY nitroglycerin [Nitrostat] 0.4 mg Tablet, Sublingual 0.4 mg SUBLINGUAL Q5M PRN (Reason: Chest Pain) Rx Instructions: do not exceed 3 doses per episode atorvastatin 40 mg Tablet 80 mg PO BEDTIME Qty: 60 0RF carvedilol 6.25 mg Tablet 6.25 mg PO BID Qty: 60 0RF hydralazine 25 mg Tablet 25 mg PO TID Qty: 90 0RF aspirin 81 mg Tablet,Delayed Release (Dr/Ec) 81 mg PO DAILY Qty: 30 0RF sevelamer carbonate 800 mg Tablet 800 mg PO TID Qty: 90 0RF clopidogrel 75 mg tablet 75 mg PO DAILY Qty: 30 1RF Discharge Orders: Discharge ED (Routine); Ordered 11/10/23 Ordered By: Chato Bradshaw Referrals: Elizabeth Dougherty FNP [Primary Care Provider] - Discharge Diet: Usual diet Discharge Activity: Increase activity as tolerated Patient Instructions: Opioid Safety, Pain Management Activity Restrictions/Additional Instructions: Pain medications as directed. Keep follow-up appointment as planned replacement Port-A-Cath. Monitor for any new or worsening of symptoms and return for reevaluation. Coding Level of Care Code ED Medical Office Assistant for Chg Fwd Documented by User: Shravan Jones DO 11/10/23 07:14 HPI - Chest Pain 2 General: Chief Complaint: Chest Pain Stated Complaint: pain in right arm/ has a port in same arm Time Seen by Provider: 11/09/23 22:38 PFSH ED 2 PFSH: Medical History Intractable nausea and vomiting Diabetic gastroparesis Acute cystitis with hematuria CKD (chronic kidney disease) stage 3, GFR 30-59 ml/min ERICA (acute kidney injury) CHF (congestive heart failure), NYHA class III Pulmonary hypertension CAD (coronary artery disease) Neurogenic bladder Acute kidney injury superimposed on chronic kidney disease Metabolic acidosis COVID-19 Tobacco dependence Drug abuse Anemia Community acquired pneumonia Acute hyperglycemia Esophagitis Complicated UTI (urinary tract infection) Transaminitis Long-term insulin use History of pancreatitis Hyperlipidemia Celiac disease Recurrent UTI Non-alcoholic fatty liver disease Arnold-Chiari malformation Diabetic gastroparesis -continue Reglan Diabetic neuropathy associated with type 1 diabetes mellitus Headache, common migraine, intractable, with status migrainosus Cystitis Pleural effusion 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 Uncontrolled type 1 diabetes mellitus Lymphadenitis Ureterolithiasis Pyelonephritis PID (pelvic inflammatory disease) Anxiety Sepsis Respiratory failure HTN (hypertension) Pancreatitis DKA (diabetic ketoacidoses) Migraine headache Chronic headache Surgical History History of lung surgery -s/p LLL lobectomy secondary to cavitary pneumonia (2016) History of endoscopy History of cholecystectomy Family History Grandfather Diabetes Other Heart disease Hypertension Social History Smoking and tobacco/nicotine status: former use of tobacco/nicotine Second hand smoke exposure: Yes Alcohol intake: never Substance/Drug Use: current Household members: children Housing: House Marital status: Single Current occupational status: unemployed Course 2 Vital Signs: Vital signs: Vital Signs Temperature 97.9 F 11/09/23 20:40 Pulse Rate 74 11/10/23 01:48 Respiratory Rate 18 11/10/23 01:22 Blood Pressure 116/75 11/10/23 01:48 Pulse Oximetry 98 11/10/23 01:22 Oxygen Delivery Me thod Room Air 11/10/23 00:46 MDM - Chest Pain Medical Decision Making Patient presents for right chest wall pain, initially was right arm pain but switched to chest pain in the waiting room. She has multiple ER visits recently. She is a dialysis patient and states the pain is just superior to her right Port-A-Cath. Upon examination the cath is very tender to palpation and very superficial to the skin, no concern for ACS as her EKG was unremarkable and chest x-ray did not demonstrate any unusual cardiopulmonary findings. She states she has an appointment to have the Port-A-Cath switched, and does note some pain relief after being given IV morphine. Blood pressure elevated to 200 systolic on arrival, most likely due to pain. This was brought down with hydralazine and clonidine. Patient's pain likely due to Port-A-Cath manipulation as she has been using her right arm more than usual lately, and the pain is worsened with any movement of the right arm. She will be sent home with oxycodone for breakthrough pain and instructed to keep her follow-up for portacatheter placement. Patient agrees with plan and return precautions are given. Chart reviewed Lab Data 11/09/23 23:42 11/09/23 23:42 Radiology Impressions Chest X-Ray 11/09/23 23:21 IMPRESSION: No focal consolidation. Soft Tissue Ultrasound 11/10/23 00:00 IMPRESSION: Negative exam as discussed above Laboratory Results WBC 9.05 10^3/uL (3.29-11.43) 11/09/23 23:42 RBC 4.10 10^6/uL (3.85-5.65) 11/09/23 23:42 Hgb 11.30 g/dL (11.27-16.99) 11/09/23 23:42 Hct 37.5 % (36-47) 11/09/23 23:42 MCV 91.5 fl (85-98) 11/09/23 23:42 MCH 27.6 pg (27-33) 11/09/23 23:42 MCHC 30.1 g/dL (30-55) 11/09/23 23:42 RDW 15.8 % (12.1-15.1) H 11/09/23 23:42 Plt Count 275 10^3/cmm (157-399) 11/09/23 23:42 MPV 9.4 fL (7.4-10.4) 11/09/23 23:42 Neut % (Auto) 65.9 % 11/09/23 23:42 Lymph % (Auto) 21.8 % 11/09/23 23:42 [place] % (Auto) 7.5 % 11/09/23 23:42 Eos % (Auto) 4.2 % 11/09/23 23:42 Baso % (Auto) 0.4 % 11/09/23 23:42 Neut # (Auto) 5.96 10^3/uL (1.8-7.7) 11/09/23 23:42 Lymph # (Auto) 2.0 10^3/uL (0.8-4.8) 11/09/23 23:42 [place] # (Auto) 0.7 10^3/uL (0.2-0.9) 11/09/23 23:42 Eos # (Auto) 0.4 10^3/uL (0.0-0.8) 11/09/23 23:42 Baso # (Auto) 0.0 10^3/uL (0.0-0.1) 11/09/23 23:42 Nucleated RBC % (auto) 0 % 11/09/23 23:42 Nucleated RBCs # 0.0 /100WBC 11/09/23 23:42 Sodium 139 mmol/L (136-145) 11/09/23 23:42 Potassium 4.2 mmol/L (3.5-5.1) 11/09/23 23:42 Chloride 101 mmol/L (98-107) 11/09/23 23:42 Carbon Dioxide 26 mmol/L (22-29) 11/09/23 23:42 Anion Gap 16.2 (5-19) 11/09/23 23:42 BUN 28 mg/dL (6-20) H 11/09/23 23:42 Creatinine 3.7 mg/dL (0.5-0.9) H 11/09/23 23:42 GFR Calculation 13.8 mL/min (90-130) L 11/09/23 23:42 Glucose 224 mg/dL (65-115) H 11/09/23 23:42 Calculated Osmolality 300 mOsm/kg (285-295) H 11/09/23 23:42 Calcium 8.6 mg/dL (8.5-10.5) 11/09/23 23:42 Total Bilirubin 0.2 mg/dL (0.15-1.2) 11/09/23 23:42 AST 93 U/L (0-32) H 11/09/23 23:42 ALT 77 U/L (0-33) H 11/09/23 23:42 Alkaline Phosphatase 168 U/L (35-105) H 11/09/23 23:42 Total Protein 7.4 g/dL (6.6-8.7) 11/09/23 23:42 Albumin 3.1 g/dL (3.5-5.2) L 11/09/23 23:42 Globulin 4.3 g/dL (1.3-4.6) 11/09/23 23:42 Discharge Plan Discharge Patient Disposition: Home Clinical Impression: Anterior chest wall pain Condition: Stable Prescriptions: New oxycodone 15 mg tablet 15 mg PO Q8H PRN (Reason: pain) Qty: 7 0RF No Action (DME) Dexcom G6 Steam Bone Press Tender Misc See Rx Instructions .Route Qty: 1 0RF Rx Instructions: As directed (DME) Dexcom G6 Sensor Device See Rx Instructions .Route Qty: 3 0RF Rx Instructions: As directed (DME) Dexcom G6 Transmitter Device See Rx Instructions .Route Qty: 1 0RF Rx Instructions: As directed albuterol sulfate 90 mcg/actuation HFA aerosol inhaler 2 puff inhalation Q6H PRN (Reason: shortness of breath or wheezing) insulin aspart U-100 [Novolog FlexPen U-100 Insulin] 100 unit/mL (3 mL) Insulin Pen See Rx Instructions .ROUTE .COMPLEX Qty: 1 3RF Rx Instructions: Take per sliding scale three times daily fluticasone furoate-vilanterol [Breo Ellipta] 100-25 mcg/dose Blister With Device 1 inh INHALATION DAILY nitroglycerin [Nitrostat] 0.4 mg Tablet, Sublingual 0.4 mg SUBLINGUAL Q5M PRN (Reason: Chest Pain) Rx Instructions: do not exceed 3 doses per episode atorvastatin 40 mg Tablet 80 mg PO BEDTIME Qty: 60 0RF carvedilol 6.25 mg Tablet 6.25 mg PO BID Qty: 60 0RF hydralazine 25 mg Tablet 25 mg PO TID Qty: 90 0RF aspirin 81 mg Tablet,Delayed Release (Dr/Ec) 81 mg PO DAILY Qty: 30 0RF sevelamer carbonate 800 mg Tablet 800 mg PO TID Qty: 90 0RF clopidogrel 75 mg tablet 75 mg PO DAILY Qty: 30 1RF Discharge Orders: Discharge ED (Routine); Ordered 11/10/23 Ordered By: Chato Bradshaw Referrals: Elizabeth Dougherty FNP [Primary Care Provider] - Discharge Diet: Usual diet Discharge Activity: Increase activity as tolerated Patient Instructions: Opioid Safety, Pain Management Activity Restrictions/Additional Instructions: Pain medications as directed. Keep follow-up appointment as planned replacement Port-A-Cath. Monitor for any new or worsening of symptoms and return for reevaluation. Coding Level of Care Code ED Medical Office Assistant for Reji Chandler
[2023-11-09 23:49] LABS: Basophils % 0.4 %; Eosinophils # 0.4 10^3/uL (0.0-0.8); Eosinophils % 4.2 %; Hematocrit 37.5 % (36-47); Lymphocytes % 21.8 %; Mean Corpuscular HGB Conc 30.1 g/dL (30-55); Mean Corpuscular Hemoglobin 27.6 pg (27-33); Mean Corpuscular Volume 91.5 fl (85-98); Mean Platelet Volume 9.4 fL (7.4-10.4); Monocytes # 0.7 10^3/uL (0.2-0.9); Monocytes % 7.5 %; Neutrophils # 5.96 10^3/uL (1.8-7.7); Neutrophils % 65.9 %; Nucleated Red Blood Cells % 0 %; Platelet Count 275 10^3/cmm (157-399); Red Cell Distribution Width 15.8 % (12.1-15.1); White Blood Count 9.05 10^3/uL (3.29-11.43)
[2023-11-09 23:51] VITALS: RESP 18
[2023-11-09] MEDS: morphine 4 mg/mL SDV 1 mL IVP (23:51)
[2023-11-09] MEDS: labetalol 5 mg/mL SDV 20mL 20 MG IVP (23:51)
[2023-11-09 23:56] VITALS: PULSE 74; RESP 18; O2SAT 97
--- NOTE | 2023-11-10 | USR_ITS ---
PROCEDURE INFORMATION: Exam: US Right Non-Vascular Joint or Other Extremity Structure Exam date and time: 11/10/2023 12:27 AM Age: 38 years old Clinical indication: Prior surgery; Surgery date: 1-6 months; Surgery type: Unsure of dates. Patient has a dialysis cath in her right chest; Additional info: US palpable cord just superior to port in chest TECHNIQUE: Imaging protocol: Right US joint or other nonvascular extremity structure or structures. Real-time ultrasound with image documentation. Limited study. Exam focused on the upper extremity in the region of clinical interest. COMPARISON: No relevant prior studies available. FINDINGS: Targeted scanning was performed over region of the dialysis port right chest. No underlying fluid collection or other significant focal abnormality is identified in this region. US/US soft tissue/extremity [id number] IMPRESSION: Negative exam as discussed above
[2023-11-10 00:13] LABS: Alanine Aminotransferase 77 U/L (0-33); Albumin Level 3.1 g/dL (3.5-5.2); Alkaline Phosphatase 168 U/L (35-105); Anion Gap 16.2 (5-19); Aspartate Amino Transferase 93 U/L (0-32); Blood Urea Nitrogen 28 mg/dL (6-20); Calcium 8.6 mg/dL (8.5-10.5); Carbon Dioxide 26 mmol/L (22-29); Chloride 101 mmol/L (98-107); Globulin 4.3 g/dL (1.3-4.6); Glomerular Filtration Rate 13.8 mL/min (90-130); Glucose 224 mg/dL (65-115); Osmolality Calculated 300 mOsm/kg (285-295); Potassium 4.2 mmol/L (3.5-5.1); Sodium 139 mmol/L (136-145); Total Bilirubin 0.2 mg/dL (0.15-1.2); Total Protein 7.4 g/dL (6.6-8.7)
[2023-11-10 00:46] VITALS: BP 207/121; PULSE 72; O2SAT 97
[2023-11-10 00:57] VITALS: BP 207/121
[2023-11-10] MEDS: cloNIDine 0.1 mg Tablet 0.100000000000000006 MG PO (00:57)
[2023-11-10] MEDS: hyDRALAzine 20 mg/mL INJ 1 mL 10 MG IVP (00:57)
[2023-11-10 01:21] VITALS: BP 110/70; PULSE 76; RESP 21; O2SAT 98
[2023-11-10 01:22] VITALS: RESP 18; O2SAT 98
[2023-11-10] MEDS: morphine 4 mg/mL SDV 1 mL IVP (01:22)
[2023-11-10 01:48] VITALS: BP 116/75; PULSE 74
== END 2023-11-10 01:50 | disposition home or self-care (01) ==
PROVIDERS: Emergency Provider Physician Assistant; PCP Nurse Practitioner Family
DX: R07.89 Other chest pain (principal); Z87.891 Personal history of nicotine dependence
CPT/HCPCS: 71045; 76882; 80053; 85025; 93005; 96374; 96375; 96376; 99285; J0360; J2270; J3490

== ENCOUNTER → 2023-11-19 09:58 | Outpatient (BNVA) | payer MEDICAID, SELFPAY | PROVIDERS: PCP Nurse Practitioner Family; Visit Provider Internal Medicine | DX: E10.42 Type 1 diabetes mellitus with diabetic polyneuropathy (principal); E10.65 Type 1 diabetes mellitus with hyperglycemia; E78.5 Hyperlipidemia, unspecified; E11.43 Type 2 diabetes mellitus with diabetic autonomic (poly)neuropathy; K31.84 Gastroparesis; Z87.19 Personal history of other diseases of the digestive system; K90.0 Celiac disease; E16.0 Drug-induced hypoglycemia without coma; T38.3X5A Adverse effect of insulin and oral hypoglycemic [antidiabetic] drugs, initial encounter; Z79.4 Long term (current) use of insulin; R74.01 Elevation of levels of liver transaminase levels | CPT/HCPCS: 36415; 80053 ==

== ENCOUNTER 2023-11-27 12:03 | Inpatient (IN) | payer MEDICAID, SELFPAY ==
[2023-11-27] VITALS (16 sets, daily range): BP systolic 137–202; BP diastolic 80–120; PULSE 61–65; RESP 14–22; TEMP 36.6–36.8; O2SAT 92–99; BMI 23.8; BMI 24.4
--- NOTE | 2023-11-27 12:31 | ECG_ITS ---
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 Measurements Intervals [place] Rate: 65 P: 23 VT: 156 QRS: 17 QRSD: 105 T: 193 QT: 445 QTc: 463 Interpretive Statements SINUS RHYTHM ST DEVIATION AND MODERATE T-WAVE ABNORMALITY, CONSIDER INFERIOR ISCHEMIA [-0.1+ mV T-WAVE IN II/aVF] Compared to ECG 11/09/2023 20:44:56 Indeterminate axis no longer present T-wave abnormality still present Possible ischemia still present Electronically Signed On 11-27-2023 18:14:31 CDT by Riccardo Burch M.D. [id number] f
--- NOTE | 2023-11-27 12:31 | XR_ITS ---
WS: [id number] XR chest 1V portable [id number] REASON FOR EXAM: cp FINDINGS: The chest appears unchanged compared to the examination of 11/04/2023. There is a right internal jugular dialysis catheter. Thoracic aorta without significant abnormality. Coronary artery stents. Old left pleural pericardial reactive changes with blunting of the left costophrenic angle. Calcified granulomas disease in both hemithoraces. No acute pulmonary parenchymal or pleural abnormality. No significant abnormality of the bony thorax. XR/XR chest 1V portable [id number] IMPRESSION: Stable chest without acute abnormality.
--- NOTE | 2023-11-27 12:55 | W.ED.CHESTPA ---
HPI - Chest Pain General: Chief Complaint: Chest Pain Stated Complaint: Chest Pain Time Seen by Provider: 11/27/23 12:15 Source: patient Mode of arrival: ambulatory Limitations: no limitations History of Present Illness: This patient made her way to the emergency department today because of chest pain symptoms. She states she has been experiencing them off and on for the past week or thereabouts. Initially attributed to those to a possible tunnel catheter for her dialysis but this has been in place for approximately 2 months or more. Denies any fevers or chills or cough. She states there is no relationship to pain with activity or position or other modifying factors. She states that she was at dialysis today and developed pain in her center chest and seem to radiate to her right jaw into her left neck. She states it felt similar to the pain she had with her prior heart attack. She states that she was only in dialysis approximately 15 minutes when the symptoms worsened. She states that there is no change in her pain with position. She had a stent placed in October of this year. States she has been taking all her usual medications. MD complaint: chest pain Pertinent past history: coronary artery disease Onset: during rest Pain location: substernal Pain radiation: neck Exacerbating factors: nothing Associated symptoms: Deny abdominal pain, dyspnea, fever(s), nausea, palpitations, syncope or vomiting Review of Systems Const: Denies: fever(s) or chills ENMT: Denies: odynophagia, nasal discharge or nasal congestion Card: Reports: chest pain; Denies: palpitations, irregular heart rhythm, syncope or pre-syncope Resp: Denies: dyspnea, productive cough or non-productive cough GI: Denies: abdominal pain, nausea or vomiting : Reports: oliguria Musc: Denies: back pain, extremity pain or extremity swelling Skin/Breast: Denies: rash or pruritus Neuro: Denies: headache(s), numbness in extremities or weakness in extremities Psych: Denies: anxiety, depression or mood swings PFSH ED PFSH: Medical History Intractable nausea and vomiting Diabetic gastroparesis Acute cystitis with hematuria CKD (chronic kidney disease) stage 3, GFR 30-59 ml/min ERICA (acute kidney injury) CHF (congestive heart failure), NYHA class III Pulmonary hypertension CAD (coronary artery disease) Neurogenic bladder Acute kidney injury superimposed on chronic kidney disease Metabolic acidosis COVID-19 Tobacco dependence Drug abuse Anemia Community acquired pneumonia Acute hyperglycemia Esophagitis Complicated UTI (urinary tract infection) Transaminitis Long-term insulin use History of pancreatitis Hyperlipidemia Celiac disease Recurrent UTI Non-alcoholic fatty liver disease Arnold-Chiari malformation Diabetic gastroparesis -continue Reglan Diabetic neuropathy associated with type 1 diabetes mellitus Headache, common migraine, intractable, with status migrainosus Cystitis Pleural effusion 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 Uncontrolled type 1 diabetes mellitus Lymphadenitis Ureterolithiasis Pyelonephritis PID (pelvic inflammatory disease) Anxiety Sepsis Respiratory failure HTN (hypertension) Pancreatitis DKA (diabetic ketoacidoses) Migraine headache Chronic headache Surgical History History of lung surgery -s/p LLL lobectomy secondary to cavitary pneumonia (2017) History of endoscopy History of cholecystectomy Family History Grandfather Diabetes Other Heart disease Hypertension Social History Smoking and tobacco/nicotine status: never used tobacco/nicotine Second hand smoke exposure: Yes Alcohol intake: never Substance/Drug Use: current Household members: children Housing: House Marital status: Single Current occupational status: unemployed Physical Exam Narrative: EXAM NARRATIVE: She is alert and responds appropriately with goal-directed sentences. Const: COMMON NORMALS: no acute distress, average body habitus, patient oriented x3 and alert GENERAL APPEARANCE: cooperative HENMT: COMMON NORMALS: normocephalic, Normal nasal mucous membranes and turbinates present and moist oral mucous membranes HEAD & SCALP: normocephalic FACE & SINUS: normal facial exam NOSE: Normal nasal mucous membranes and turbinates present Eye: COMMON NORMALS: Equal, round and reactive pupils present, EOMs intact bilaterally, conjunctivae normal and normal visual torers by confrontation CONJUNCTIVA: Yes conjunctivae normal PUPIL: Yes Equal, round and reactive pupils present Neck/C-Spine: COMMON NORMALS: full ROM, Thyroid normal and No carotid bruits THYROID: Thyroid normal Chest: COMMONS NORMALS: normal inspection of the chest OTHER: Her tunnel catheter in the right chest appears to be intact without any drainage or erythema. She does have tenderness over the anterior chest to palpation but no ecchymosis, crepitus, subcutaneous emphysema etc. Resp: COMMON NORMALS: normal respiratory effort, No retractions, No use of accessory muscles and clear to auscultation bilaterally AUSCULTATION: clear to auscultation bilaterally Cardio: COMMON NORMALS: regular rate, regular rhythm, No murmurs present (Cardio) and Peripheral pulses 2+ throughout RATE: regular rate RHYTHM: regular rhythm PERIPHERAL PULSES: Peripheral pulses 2+ throughout GI: COMMON NORMALS: Normal to inspection, nondistended, normoactive bowel sounds present, Soft to palpation and non-tender PALPATION: Yes Soft to palpation : COMMON NORMALS: Yes no CVA tenderness BLADDER/KIDNEY EXAM: Yes no CVA tenderness Back/Pelvis: COMMON NORMALS: no CVA tenderness, thoracic and lumbar spine normal to inspection, no thoracic nor lumbar tenderness and thoraco-lumbar ROM normal Extremity: COMMON NORMALS: normal to inspection, full ROM, no joint enlargement, no clubbing, cyanosis or edema, no calf tenderness and no pedal edema Neuro: COMMON NORMALS: patient oriented x3, moves all extremities, no focal motor deficits and no sensory deficits noted SENSORIUM/ORIENTATION: Yes alert Skin: COMMON NORMALS: no rashes or lesions noted and turgor normal GENERAL SKIN EXAM: no rashes or lesions noted and turgor normal Course Reevaluation(s): Reevaluation #1: Initial troponin is noted to be 338. Time: 13:35 Reevaluation #2: Patient pain-free. Noted that she has elevation of blood pressure and it is not clear whether her blood pressure elevations a contributing factor to her pain or vice versa. Will go ahead and try to control her blood pressure while were waiting on serial troponins. Her troponins have been elevated in the past and in particular with her renal failure it is important to trend her troponins to determine if she is at risk for ACS. Time: 14:12 Reevaluation #3: Patient second troponin is essentially unchanged from the initial troponin. Her EKG did not show any dynamic changes. Family is now here and provides additional illuminating information. Patient apparently had a stent replaced or cleaned out their words at [facility] in October. She had old cardiac stents that apparently had partial or total occlusion and required that procedure. She apparently at least it sounds like she had a valvuloplasty done as well. This information was unknown to us until this time. Time: 16:12 Consultations: Consultation #1: Discussed with Dr. Santiago from cardiology. Because of her history as well as her recurrent chest pain in the emergency department he feels it is and agrees it is likely reasonable for us to put her in observation to control her symptoms and he will see her as well in consultation. Time: 16:22 Consultation #2: Discussed with Dr. Garcia hospitalist service we outlined initial plan of care and she agreed to admit patient. Time: 16:32 Vital Signs: Vital signs: Vital Signs Temperature 97.9 F 11/27/23 12:06 Pulse Rate 62 11/27/23 13:40 Respiratory Rate 18 11/27/23 13:07 Blood Pressure 188/112 11/27/23 15:27 Pulse Oximetry 98 11/27/23 15:27 Oxygen Delivery Me thod Room Air 11/27/23 13:07 MDM - Chest Pain Medical Decision Making This patient with known chronic end-stage kidney disease on dialysis as well as known coronary artery disease presented with chest pain that occurred while in dialysis after approximately 15 minutes into her run today. She states the pain was very similar to that which she experienced earlier this year after prior to having stents placed when she was ultimately transferred to [facility]. Apparently she had another procedure with sounds like a valvuloplasty at that time as well. She denied any concomitant fevers or chills or cough but did state that she felt sweaty and diaphoretic when she gets these episodes of chest pain. With her known history of coronary disease evaluation included serial biomarkers serial EKGs chest x-ray and other laboratories. Initial troponin was noted to be elevated but in the face of her chronic kidney disease is unclear of its significance. She did have elevations in troponin previously but not quite to the same level. Chest x-ray is reassuring and other laboratories were also noted. I second troponin second EKG showed no dynamic changes. She still remained borderline hypertensive and then had recurrence of her chest pain. Cardiology was consulted tickly after finding additional information about her procedures done when she went to [facility]. In light of her known coronary disease or recurrent chest pain as well as the uncertainty of her troponin levels and there correlation with her disease it was felt that she would be best served by heparinization placed in cardiac stepdown for further evaluation by cardiology and also dialysis as indicated. Medical Records I reviewed the patient's medical records. Prior troponin elevations Lab Data I reviewed the patient's lab results. 11/27/23 13:36 11/27/23 12:58 Radiology Impressions Chest X-Ray 11/27/23 12:31 IMPRESSION: Stable chest without acute abnormality. Laboratory Results WBC 6.14 10^3/uL (3.29-11.43) 11/27/23 13:36 Corrected WBC Cancelled 11/27/23 12:58 RBC 4.56 10^6/uL (3.85-5.65) 11/27/23 13:36 Hgb 12.60 g/dL (11.27-16.99) 11/27/23 13:36 Hct 40.2 % (36-47) 11/27/23 13:36 MCV 88.2 fl (85-98) 11/27/23 13:36 MCH 27.6 pg (27-33) 11/27/23 13:36 MCHC 31.3 g/dL (30-55) 11/27/23 13:36 RDW 16.2 % (12.1-15.1) H 11/27/23 13:36 Plt Count 137 10^3/cmm (157-399) L 11/27/23 13:36 MPV 10.1 fL (7.4-10.4) 11/27/23 13:36 Gran % Cancelled 11/27/23 12:58 Neut % (Auto) 58.2 % 11/27/23 13:36 Lymph % (Auto) 26.1 % 11/27/23 13:36 Tillman % (Auto) 9.3 % 11/27/23 13:36 Eos % (Auto) 5.2 % 11/27/23 13:36 Baso % (Auto) 1.0 % 11/27/23 13:36 Neut # (Auto) 3.58 10^3/uL (1.8-7.7) 11/27/23 13:36 Lymph # (Auto) 1.6 10^3/uL (0.8-4.8) 11/27/23 13:36 Tillman # (Auto) 0.6 10^3/uL (0.2-0.9) 11/27/23 13:36 Eos # (Auto) 0.3 10^3/uL (0.0-0.8) 11/27/23 13:36 Baso # (Auto) 0.1 10^3/uL (0.0-0.1) 11/27/23 13:36 Absolute Gran (auto) Cancelled 11/27/23 12:58 Nucleated RBC % (auto) 0 % 11/27/23 13:36 Nucleated RBCs # 0.0 /100WBC 11/27/23 13:36 Sodium 138 mmol/L (136-145) 11/27/23 12:58 Potassium 4.2 mmol/L (3.5-5.1) 11/27/23 12:58 Chloride 99 mmol/L (98-107) 11/27/23 12:58 Carbon Dioxide 24 mmol/L (22-29) 11/27/23 12:58 Anion Gap 19.2 (5-19) H 11/27/23 12:58 BUN 32 mg/dL (6-20) H 11/27/23 12:58 Creatinine 3.3 mg/dL (0.5-0.9) H 11/27/23 12:58 GFR Calculation 15.7 mL/min (90-130) L 11/27/23 12:58 Glucose 222 mg/dL (65-115) H 11/27/23 12:58 Calculated Osmolality 300 mOsm/kg (285-295) H 11/27/23 12:58 Calcium 8.6 mg/dL (8.5-10.5) 11/27/23 12:58 Total Bilirubin 0.3 mg/dL (0.15-1.2) 11/27/23 12:58 AST 28 U/L (0-32) 11/27/23 12:58 ALT 34 U/L (0-33) H 11/27/23 12:58 Alkaline Phosphatase 139 U/L (35-105) H 11/27/23 12:58 Troponin T Baseline 338 ng/L (0-10) H* 11/27/23 12:58 Troponin T 120 Minute 319.7 ng/L (0-10) H 11/27/23 15:00 Delta Troponin T -18.3 ABS# (0-10) L 11/27/23 15:00 Total Protein 6.9 g/dL (6.6-8.7) 11/27/23 12:58 Albumin 3.3 g/dL (3.5-5.2) L 11/27/23 12:58 Globulin 3.6 g/dL (1.3-4.6) 11/27/23 12:58 All radiology interpretation(s) finalized by discharge EKG Data EKG 1: Interpretation: Ventricular rate 65 bpm consistent with normal sinus rhythm. Normal MN interval, QRS duration, corrected QT interval. Normal axis. She has nonspecific ST-T wave changes noted inferior laterally which were present on prior EKGs within the last 2 months. EKG 2: I personally reviewed and interpreted this EKG as follows: Interpretation: Second EKG this visit reveals a ventricular rate of 66 bpm. Normal MN interval, QRS duration, corrected QT interval. Normal axis. Still has a nonspecific ST-T wave changes noted particularly in the lateral leads. No dynamic changes from prior EKG this visit. And unchanged from prior tracings within the system. Discharge Plan Discharge Patient Disposition: Admitted As Inpatient Clinical Impression: Chest pain, Coronary artery disease, End stage chronic kidney disease Condition: Stable Prescriptions: No Action (DME) Dexcom G6 Commissions Coordinator Misc See Rx Instructions .Route Qty: 1 0RF Rx Instructions: As directed (DME) Dexcom G6 Sensor Device See Rx Instructions .Route Qty: 3 0RF Rx Instructions: As directed (DME) Dexcom G6 Transmitter Device See Rx Instructions .Route Qty: 1 0RF Rx Instructions: As directed albuterol sulfate 90 mcg/actuation HFA aerosol inhaler 2 puff inhalation Q6H PRN (Reason: shortness of breath or wheezing) insulin aspart U-100 [Novolog FlexPen U-100 Insulin] 100 unit/mL (3 mL) Insulin Pen See Rx Instructions .ROUTE .COMPLEX Qty: 1 3RF Rx Instructions: Take per sliding scale three times daily fluticasone furoate-vilanterol [Breo Ellipta] 100-25 mcg/dose Blister With Device 1 inh INHALATION DAILY PRN (Reason: Shortness Of Breath) nitroglycerin [Nitrostat] 0.4 mg Tablet, Sublingual 0.4 mg SUBLINGUAL Q5M PRN (Reason: Chest Pain) Rx Instructions: do not exceed 3 doses per episode aspirin 81 mg Tablet,Delayed Release (Dr/Ec) 81 mg PO DAILY Qty: 30 0RF sevelamer carbonate 800 mg Tablet 800 mg PO TID Qty: 90 0RF clopidogrel 75 mg tablet 75 mg PO DAILY Qty: 30 1RF carvedilol 12.5 mg tablet 12.5 mg PO BID atorvastatin 40 mg tablet 40 mg PO BEDTIME clonidine HCl 0.1 mg tablet See Rx Instructions .ROUTE .COMPLEX Rx Instructions: TAKE 1 TABLET IF SYSTOLIC BLOOD PRESSURE IS GREATER THAN 160, REPEAT ONCE IF SYSTOLIC BLOOD PRESSURE IS STILL OVER 160 AFTER 1 HOUR. lisinopril 40 mg tablet 40 mg PO BEDTIME Brilinta 90 mg tablet 90 mg PO BID Referrals: Elizabeth Dougherty FNP [Primary Care Provider] - Coding Level of Care Code ED Tower Dragline Operator for Reji Chandler
[2023-11-27] MEDS: morphine 4 mg/mL SDV 1 mL IVP ×3 (13:06→21:26)
[2023-11-27] MEDS: ondansetron 2 mg/ML SDV 2 mL 4 MG IVP (13:06)
[2023-11-27 13:24] LABS: Alanine Aminotransferase 34 U/L (0-33); Albumin Level 3.3 g/dL (3.5-5.2); Alkaline Phosphatase 139 U/L (35-105); Aspartate Amino Transferase 28 U/L (0-32); Blood Urea Nitrogen 32 mg/dL (6-20); Calcium 8.6 mg/dL (8.5-10.5); Carbon Dioxide 24 mmol/L (22-29); Chloride 99 mmol/L (98-107); Creatinine Clr Calc Pharmacy 18.2157; Globulin 3.6 g/dL (1.3-4.6); Glomerular Filtration Rate 15.7 mL/min (90-130); Glucose 222 mg/dL (65-115); Osmolality Calculated 300 mOsm/kg (285-295); Sodium 138 mmol/L (136-145); Total Bilirubin 0.3 mg/dL (0.15-1.2); Total Protein 6.9 g/dL (6.6-8.7)
[2023-11-27 13:27] LABS: Anion Gap 19.2 (5-19); Potassium 4.2 mmol/L (3.5-5.1)
[2023-11-27 13:29] LABS: Troponin(5th) Baseline 338 ng/L (0-10)
[2023-11-27 13:45] LABS: Basophils # 0.1 10^3/uL (0.0-0.1); Eosinophils # 0.3 10^3/uL (0.0-0.8); Eosinophils % 5.2 %; Hematocrit 40.2 % (36-47); Lymphocytes # 1.6 10^3/uL (0.8-4.8); Lymphocytes % 26.1 %; Mean Corpuscular HGB Conc 31.3 g/dL (30-55); Mean Corpuscular Hemoglobin 27.6 pg (27-33); Mean Corpuscular Volume 88.2 fl (85-98); Mean Platelet Volume 10.1 fL (7.4-10.4); Monocytes # 0.6 10^3/uL (0.2-0.9); Monocytes % 9.3 %; Neutrophils # 3.58 10^3/uL (1.8-7.7); Neutrophils % 58.2 %; Nucleated Red Blood Cells % 0 %; Platelet Count 137 10^3/cmm (157-399); Red Blood Count 4.56 10^6/uL (3.85-5.65); Red Cell Distribution Width 16.2 % (12.1-15.1); White Blood Count 6.14 10^3/uL (3.29-11.43)
[2023-11-27] MEDS: cloNIDine 0.1 mg Tablet 0.100000000000000006 MG PO (14:21)
--- NOTE | 2023-11-27 14:31 | ECG_ITS ---
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 Measurements Intervals [place] Rate: 66 P: 31 MI: 162 QRS: 28 QRSD: 109 T: -1 QT: 426 QTc: 447 Interpretive Statements SINUS RHYTHM MODERATE T-WAVE ABNORMALITY, CONSIDER LATERAL ISCHEMIA [-0.1+ mV T-WAVE IN I/aVL/V5/V6] MODERATE T-WAVE ABNORMALITY, CONSIDER INFERIOR ISCHEMIA [-0.1+ mV T-WAVE IN II/aVF] Compared to ECG 11/27/2023 12:09:29 No significant changes Electronically Signed On 11-27-2023 18:17:39 CDT by Riccardo Burch M.D. [email or web address]
[2023-11-27 15:34] LABS: Troponin 5 2HR 319.7 ng/L (0-10); Troponin 5 2HR Delta -18.3 ABS# (0-10)
--- NOTE | 2023-11-27 16:39 | USCV_ITS ---
Donita Aguilar Age: 38 Gender: F : 1985 Exam Date: 11/27/2023 18:29 Ordering Phys: Aleksandra Garcia MD Technologist: VIANNEY Exam Location: [facility] Indication: chest pain, nstemi, renal failure on dialysis. BP: 167 / 102 HR: 62 Rhythm: Sinus Technical Quality: Adequate MEASUREMENTS (Male / Female) Normal Values 2D ECHO LV Diastolic Diameter PLAX 4.3 cm 4.2 - 5.9 / 3.9 - 5.3 cm IVS Diastolic Thickness 1.5 cm 0.6 - 1.0 / 0.6 - 0.9 cm IVS Systolic Thickness 2.0 cm LVPW Diastolic Thickness 1.4 cm 0.6 - 1.0 / 0.6 - 0.9 cm LVPW Systolic Thickness 1.5 cm LVOT Diameter 1.6 cm LV Ejection Fraction 2D Teich 44.5 % LV Ejection Fraction MOD 2C 49.5 % LV Ejection Fraction 2C AL 51.0 % LA Diameter 4.3 cm LA Sys Volume AL 50.1 cm cubed LA Sys Volume Index AL 32.5 cm cubed/m squared Aorta at Sinotubular Diameter 2.2 cm IVC Diameter 1.1 cm M-MODE LA Ao Ratio MM 1.8 AV Cusp Separation MM 1.7 cm DOPPLER AV Peak Velocity 146.0 cm/s LVOT Peak Velocity 105.0 cm/s AV Area Cont Eq vti 1.6 cm squared AV Area Cont Eq pk 1.4 cm squared MV Peak Velocity 153.0 cm/s MV Area PHT 3.3 cm squared Mitral E to A Ratio 1.4 TR Peak Velocity 233.0 cm/s TR Peak Gradient 21.7 mmHg Right Atrial Pressure 10.0 mmHg Pulmonary Artery Systolic Pressu 31.7 mmHg PV Peak Velocity 82.0 cm/s FINDINGS Left Ventricle Left ventricle is normal in size. LV systolic function is normal with EF of 50 to 55%. No regional wall motion abnormalities are seen. Right Ventricle Normal in size and function Right Atrium Normal in size. Echogenic structure seen likely a catheter. Left Atrium Normal in size Mitral Valve Structurally normal mitral valve. Mild mitral regurgitation Aortic Valve Structurally normal aortic valve. No significant stenosis or regurgitation. Tricuspid Valve Mild tricuspid regurgitation. Insufficient TR jet to calculate RVSP Pulmonic Valve Not well visualized Pericardium Normal Aorta Normal in size IVC Appears to be normal CONCLUSIONS LV systolic function is normal with EF of 50-55% Mild mitral regurgitation Mild tricuspid regurgitation Compared to prior echocardiogram from 08/2023, no significant changes are seen Riccardo Burch MD (Electronically Signed) Final Date: 28 November 2023 10:42 S
[2023-11-27] MEDS: heparin drip 25,000 UNIT/500 ML PREMIX 15.5 UNIT IV (16:54)
[2023-11-27] MEDS: heparin 5,000 unit/mL INJ 1 mL IV (16:55)
[2023-11-27] MEDS: pantoprazole 40 mg SDV IVP (16:56)
--- NOTE | 2023-11-27 17:00 | P.CONIM_ITS ---
Providers/Reason For Consult 2 Consulting Physician/Specialty*: Riccardo Burch MD/ Cardiology Reason for Consult*: NSTEMI Requesting Physician: Dr Ramirez Attending Physician: Aleksandra Garcia MD Primary Care Provider: SUZANNE Dias History of Present Illness History of Present Illness Donita Aguilar is a 38 year old female with past medical history of coronary artery disease, end-stage renal disease, multiple stents in the heart was presented with 30 minutes of chest pain during dialysis session. Since then on and off has been having severe substernal chest pain. States it radiates to the back. Her initial troponin was over 300. EKG showing ST depressions in anterior leads and nonspecific changes in inferior leads. Review of Systems 2 Const: Denies: fever(s) Eyes: Denies: change in vision ENMT: Denies: throat pain Card: Reports: chest pain Resp: Denies: dyspnea Medications/Allergies Home Medications Medication Instructions Recorded Confirmed Last Taken Type albuterol sulfate 90 mcg/actuation 2 puff inhalation Q6H PRN 02/07/22 11/27/23 Unknown History aerosol inhaler shortness of breath or wheezing insulin aspart U-100 100 unit/mL See Rx Instructions .Route 06/07/22 11/27/23 09/20/23 Rx (3 mL) subcutaneous pen (Novolog .COMPLEX #1 ea FlexPen U-100 Insulin aspart) blood-glucose meter,continuous #1 ea 06/12/22 11/27/23 Unknown Rx (Dexcom G6 Metal Tank Erector) blood-glucose sensor (Dexcom G6 #3 ea 06/12/22 11/27/23 Unknown Rx Sensor device) blood-glucose transmitter (Dexcom #1 ea 06/12/22 11/27/23 Unknown Rx G6 Transmitter device) fluticasone furoate 100 1 inh inhalation DAILY PRN 09/14/23 11/27/23 09/20/23 History mcg-vilanterol 25 mcg/dose Shortness Of Breath inhalation powder (Breo Ellipta) nitroglycerin 0.4 mg sublingual 0.4 mg sublingual Q5M PRN Chest 09/14/23 11/27/23 Unknown History tablet (Nitrostat) Pain aspirin 81 mg tablet,delayed 81 mg PO DAILY #30 tabs 09/16/23 11/27/23 11/27/23 Rx release clopidogrel 75 mg tablet 75 mg PO DAILY #30 tabs 09/16/23 11/27/23 11/27/23 Rx sevelamer carbonate 800 mg tablet 800 mg PO TID #90 tabs 09/16/23 11/27/23 11/27/23 Rx atorvastatin 40 mg tablet 40 mg PO BEDTIME 11/27/23 11/27/23 11/26/23 History carvedilol 12.5 mg tablet 12.5 mg PO BID 11/27/23 11/27/23 11/27/23 History clonidine HCl 0.1 mg tablet See Rx Instructions .Route .COMPLEX 11/27/23 11/27/23 Unknown History lisinopril 40 mg tablet 40 mg PO BEDTIME 11/27/23 11/27/23 11/26/23 History ticagrelor 90 mg tablet (Brilinta) 90 mg PO BID 11/27/23 11/27/23 11/27/23 History Allergies Allergy/AdvReac Type Severity Reaction Status Date / Time acetaminophen AdvReac Mild ADR-Gastrointestinal Verified 11/19/23 07:40 Upset Current Medications Generic Name Dose Route Start Last Admin Trade Name Freq PRN Reason Stop Dose Admin Heparin Sodium (Porcine) 0 unit 11/27/23 16:28 11/27/23 16:55 Heparin 5,000 Unit/Ml Inj 1 Ml IV 2,750 unit PRN PRN Administration Heparin weight-base protocol Protocol Heparin Sodium/Sodium Chloride 25,000 unit in 500 mls @ 0 mls/hr 11/27/23 16:30 11/27/23 16:54 Heparin Drip IV 14 unit/kg/hr .Q0M SHAY 15.5 mls/hr Administration Protocol Per Protocol Pantoprazole Sodium 40 mg 11/27/23 16:45 11/27/23 16:56 Pantoprazole 40 Mg Sdv IVP 40 mg Q24H SHAY Administration PFSH Acute 2 PFSH: Medical History Intractable nausea and vomiting Diabetic gastroparesis Acute cystitis with hematuria CKD (chronic kidney disease) stage 3, GFR 30-59 ml/min ERICA (acute kidney injury) CHF (congestive heart failure), NYHA class III Pulmonary hypertension CAD (coronary artery disease) Neurogenic bladder Acute kidney injury superimposed on chronic kidney disease Metabolic acidosis COVID-19 Tobacco dependence Drug abuse Anemia Community acquired pneumonia Acute hyperglycemia Esophagitis Complicated UTI (urinary tract infection) Transaminitis Long-term insulin use History of pancreatitis Hyperlipidemia Celiac disease Recurrent UTI Non-alcoholic fatty liver disease Arnold-Chiari malformation Diabetic gastroparesis -continue Reglan Diabetic neuropathy associated with type 1 diabetes mellitus Headache, common migraine, intractable, with status migrainosus Cystitis Pleural effusion 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 Uncontrolled type 1 diabetes mellitus Lymphadenitis Ureterolithiasis Pyelonephritis PID (pelvic inflammatory disease) Anxiety Sepsis Respiratory failure HTN (hypertension) Pancreatitis DKA (diabetic ketoacidoses) Migraine headache Chronic headache Surgical History History of lung surgery -s/p LLL lobectomy secondary to cavitary pneumonia (2017) History of endoscopy History of cholecystectomy Family History Grandfather Diabetes Other Heart disease Hypertension Social History Smoking and tobacco/nicotine status: never used tobacco/nicotine Second hand smoke exposure: Yes Alcohol intake: never Substance/Drug Use: current Household members: children Housing: House Marital status: Single Current occupational status: unemployed Vitals/I&O/Wt Last Vital Signs Temp 97.9 F 11/27/23 12:06 Pulse 62 11/27/23 13:40 Resp 14 11/27/23 16:40 BP 188/112 11/27/23 15:27 Pulse Ox 99 11/27/23 16:52 O2 Del Method Room Air 11/27/23 16:52 Weight last 48 hrs Weight 122 lb Physical Exam 2 Narrative: GENERAL: Patient is alert, awake and oriented x3. [] NECK: No jugular vein distension. [] HEENT: No cyanosis. No icterus. No pallor. [] HEART: Regular S1 and S2. No murmur, rub or gallop. [] LUNGS: Clear to auscultate bilaterally. [] CENTRAL NERVOUS SYSTEM: Grossly nonfocal. [] EXTREMITIES: Lower extremities with 1+ edema bilaterally. Data 11/28/23 04:46 11/28/23 04:46 A&P Assessment and plan (1) NSTEMI (non-ST elevated myocardial infarction): (2) CAD (coronary artery disease): (3) CHF (congestive heart failure), NYHA class III: Qualifiers: Congestive heart failure type: systolic Congestive heart failure chronicity: acute on chronic Qualified Code(s): I50.23 - Acute on chronic systolic (congestive) heart failure (4) ESRD (end stage renal disease): Plan Patient has presented with typical severe substernal chest pain. Still having on and off pain. Troponin is elevated. Will trend it. Findings are consistent with NSTEMI. Given her prior significant CAD history, we will proceed with coronary angiogram with possible PCI. Risks and benefits of the procedure have been discussed. Continue aspirin and Brilinta. Continue high intensity statin therapy. Dialysis after procedure is performed in the morning. N.p.o. past midnight ECHO ordered. Thank you for involving us with care of this patient. Will continue to follow. Please call with questions. Consult Attestations 2 Medical Necessity Statement: Care expected to cross 2 midnights. Coding Level of Care Code Acute Code for [facility] Diagnoses NSTEMI (non-ST elevated myocardial infarction) I21.4 CAD (coronary artery disease) I25.10 Acute on chronic systolic congestive heart failure, NYHA class 3 I50.23 Congestive heart failure type: systolic Congestive heart failure chronicity: acute on chronic ESRD (end stage renal disease) N18.6
[2023-11-27 17:16] LABS: Procalcitonin 0.25 ng/mL (0-0.5); Thyroid Stimulating Hormone 2.92 uIU/mL (0.27-4.20)
[2023-11-27 17:21] LABS: Platelet Count 131 10^3/cmm (157-399)
[2023-11-27] MEDS: carvedilol 12.5 mg Tablet PO (17:46)
[2023-11-27] MEDS: ticagrelor 90 mg Tablet PO (17:51)
[2023-11-27 17:56] LABS: Glucose Point of Care 165 mg/dL (70-110)
--- NOTE | 2023-11-27 18:07 | ECG_ITS ---
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 Measurements Intervals [place] Rate: 64 P: 25 MD: 173 QRS: 8 QRSD: 109 T: 204 QT: 432 QTc: 446 Interpretive Statements SINUS RHYTHM MODERATE T-WAVE ABNORMALITY, CONSIDER INFERIOR ISCHEMIA [-0.1+ mV T-WAVE IN II/aVF] Compared to ECG 11/27/2023 14:45:40 No significant changes Electronically Signed On 11-27-2023 18:16:37 CDT by Riccardo Burch M.D. [email or web address]
[2023-11-27] MEDS: hyDRALAzine 20 mg/mL INJ 1 mL 10 MG IVP (18:33)
--- NOTE | 2023-11-27 18:54 | PC.NURSE ---
received from er via stretcher at 1730.report received.pt is alert and oriented x4.denies chest pain at this time.sr on monitor.oriented to room environment.instructed to notify staff for any chest pain,sob,or for any concerns at all.pt verb understanding of instructions
--- NOTE | 2023-11-27 19:29 | P.HP_ITS ---
Providers/Chief Complaint 2 Admitting Physician: Aleksandra Garcia MD Primary Care Provider: SUZANNE Dias Chief Complaint: Chest Pain History of Present Illness Donita Aguilar is a 38 year old female with history of significant coronary disease, recent stent was in August at [facility], has history of end- stage renal disease, diabetes, in-stent restenosis history in the past Presented to the hospital from dialysis center for chief complaint of chest pain, patient stating that she was only 15 minutes in her dialysis when she wanted to use the restroom and at that point she started experiencing facial flushing and chest pain, her chest pain lasted for about 30 minutes it was nonradiating it was not associated with nausea or vomiting but she felt extremely weak and tired, that prompted her visit to the ER in the ER she has been diagnosed with non-STEMI, no active pain patient is stating that her pain is better after getting morphine She will be kept n.p.o. for angiogram the morning Dr. Rasmussen consulted. We will also try to dialyze her in the morning Review of Systems 2 Const: Denies: fever(s) Eyes: Denies: change in vision ENMT: Denies: throat pain Card: Reports: chest pain Resp: Denies: dyspnea Medications/Allergies Home Medications Medication Instructions Recorded Confirmed Last Taken Type albuterol sulfate 90 mcg/actuation 2 puff inhalation Q6H PRN 02/07/22 11/27/23 Unknown History aerosol inhaler shortness of breath or wheezing insulin aspart U-100 100 unit/mL See Rx Instructions .Route 06/07/22 11/27/23 09/20/23 Rx (3 mL) subcutaneous pen (Novolog .COMPLEX #1 ea FlexPen U-100 Insulin aspart) blood-glucose meter,continuous #1 ea 06/12/22 11/27/23 Unknown Rx (Dexcom G6 Manager Massage Department) blood-glucose sensor (Dexcom G6 #3 ea 06/12/22 11/27/23 Unknown Rx Sensor device) blood-glucose transmitter (Dexcom #1 ea 06/12/22 11/27/23 Unknown Rx G6 Transmitter device) fluticasone furoate 100 1 inh inhalation DAILY PRN 09/14/23 11/27/23 09/20/23 History mcg-vilanterol 25 mcg/dose Shortness Of Breath inhalation powder (Breo Ellipta) nitroglycerin 0.4 mg sublingual 0.4 mg sublingual Q5M PRN Chest 09/14/23 11/27/23 Unknown History tablet (Nitrostat) Pain aspirin 81 mg tablet,delayed 81 mg PO DAILY #30 tabs 09/16/23 11/27/23 11/27/23 Rx release clopidogrel 75 mg tablet 75 mg PO DAILY #30 tabs 09/16/23 11/27/23 11/27/23 Rx sevelamer carbonate 800 mg tablet 800 mg PO TID #90 tabs 09/16/23 11/27/23 11/27/23 Rx atorvastatin 40 mg tablet 40 mg PO BEDTIME 11/27/23 11/27/23 11/26/23 History carvedilol 12.5 mg tablet 12.5 mg PO BID 11/27/23 11/27/23 11/27/23 History clonidine HCl 0.1 mg tablet See Rx Instructions .Route .COMPLEX 11/27/23 11/27/23 Unknown History lisinopril 40 mg tablet 40 mg PO BEDTIME 11/27/23 11/27/23 11/26/23 History ticagrelor 90 mg tablet (Brilinta) 90 mg PO BID 11/27/23 11/27/23 11/27/23 History Allergies Allergy/AdvReac Type Severity Reaction Status Date / Time acetaminophen AdvReac Mild ADR-Gastrointestinal Verified 11/19/23 07:40 Upset PFSH Acute 2 PFSH: Medical History Intractable nausea and vomiting Diabetic gastroparesis Acute cystitis with hematuria CKD (chronic kidney disease) stage 3, GFR 30-59 ml/min ERICA (acute kidney injury) CHF (congestive heart failure), NYHA class III Pulmonary hypertension CAD (coronary artery disease) Neurogenic bladder Acute kidney injury superimposed on chronic kidney disease Metabolic acidosis COVID-19 Tobacco dependence Drug abuse Anemia Community acquired pneumonia Acute hyperglycemia Esophagitis Complicated UTI (urinary tract infection) Transaminitis Long-term insulin use History of pancreatitis Hyperlipidemia Celiac disease Recurrent UTI Non-alcoholic fatty liver disease Arnold-Chiari malformation Diabetic gastroparesis -continue Reglan Diabetic neuropathy associated with type 1 diabetes mellitus Headache, common migraine, intractable, with status migrainosus Cystitis Pleural effusion 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 Uncontrolled type 1 diabetes mellitus Lymphadenitis Ureterolithiasis Pyelonephritis PID (pelvic inflammatory disease) Anxiety Sepsis Respiratory failure HTN (hypertension) Pancreatitis DKA (diabetic ketoacidoses) Migraine headache Chronic headache Surgical History History of lung surgery -s/p LLL lobectomy secondary to cavitary pneumonia (2017) History of endoscopy History of cholecystectomy Family History Grandfather Diabetes Other Heart disease Hypertension Social History Smoking and tobacco/nicotine status: never used tobacco/nicotine Second hand smoke exposure: Yes Alcohol intake: never Substance/Drug Use: current Household members: children Housing: House Marital status: Single Current occupational status: unemployed Vitals/I&O/Wt Last Vital Signs Temp 97.9 F 11/27/23 12:06 Pulse 65 11/27/23 18:30 Resp 19 H 11/27/23 18:30 BP 189/102 11/27/23 18:30 Pulse Ox 97 11/27/23 18:30 O2 Del Method Room Air 11/27/23 17:34 Weight last 48 hrs Weight 56.699 kg Weight 55.338 kg Physical Exam 2 Narrative: Patient is euvolemic GCS 15 Currently on room air Hemodynamically stable Hypertensive Currently on heparin drip No active chest pain S1, S2 Abdomen soft Laying comfortably in her bed Data 11/27/23 17:13 11/27/23 12:58 A&P Assessment and plan (1) CHF (congestive heart failure), NYHA class III: Qualifiers: Congestive heart failure type: systolic Congestive heart failure chronicity: acute on chronic Qualified Code(s): I50.23 - Acute on chronic systolic (congestive) heart failure (2) NSTEMI (non-ST elevated myocardial infarction): (3) Chest pain: (4) Coronary artery disease: Qualifiers: Coronary Disease-Associated Artery/Lesion type: unspecified vessel or lesion type (5) ESRD (end stage renal disease): (6) Diabetic neuropathy associated with type 1 diabetes mellitus: Qualifiers: Diabetes mellitus complication detail: diabetic polyneuropathy Qualified Code(s): E10.42 - Type 1 diabetes mellitus with diabetic polyneuropathy Plan Non-STEMI Start ACS protocol Continue aspirin and Brilinta No active chest pain at the time evaluation Requested echo Continue heparin drip End-stage renal disease will dialyze her tomorrow after angiogram Patient could not finish her dialysis today Will consult Dr. Michael Santiago is consulted as well Insulin-dependent diabetes no sign of DKA She is on renal dialysis diet for now N.p.o. after midnight Full code Patient does not smoke, not endorsing use of recreational drugs Hypertension urgency: would use IV medication on as-needed basis to control blood pressure keep it below 130/80 mmHg, Attestations 2 Medical Necessity Statement*: More than 2 midnights anticipated Diagnoses Acute on chronic systolic congestive heart failure, NYHA class 3 I50.23 Congestive heart failure type: systolic Congestive heart failure chronicity: acute on chronic NSTEMI (non-ST elevated myocardial infarction) I21.4 Chest pain R07.9 Coronary artery disease I25.10 Coronary Disease-Associated Artery/Lesion type: unspecified vessel or lesion type ESRD (end stage renal disease) N18.6 Diabetic polyneuropathy associated with type 1 diabetes mellitus E10.42 Diabetes mellitus complication detail: diabetic polyneuropathy
[2023-11-27 19:44] LABS: Troponin 5 6HR Delta -79.7 ng/L (0-12)
[2023-11-27 19:45] LABS: Troponin 5 6HR 258.3 ng/L (0-10)
--- NOTE | 2023-11-27 20:08 | P.CONIM_ITS ---
Providers/Reason For Consult 2 Consulting Physician/Specialty*: ashlee davies md / telenephrology Reason for Consult*: ESRD carer Requesting Physician: Dr Che Attending Physician: Austin Che MD Primary Care Provider: SUZANNE Dias History of Present Illness History of Present Illness Donita Aguilar is a 38 year old female h/o IDDM, uncontrolled HTN, ESRD, PVD. Pt had recent stents she says in October 2023. Pt recently started HD this year. She is on HD MWF. She presented to dialysis today and had CP- dialysis terminated after 20 minutes. Pt came to ER had HTN that was treated. She was diagnosed w/ a NSTEMI and was admitted to the hospital and plan is for cardaic cath at 7 am tomorrow morning. she still c/o CP Review of Systems 2 Narrative: weak, CP.+ nausea, no sob. no benavides, no diarrhea, no leg pains. rest of ROS reviewed and negative Medications/Allergies Home Medications Medication Instructions Recorded Confirmed Last Taken Type albuterol sulfate 90 mcg/actuation 2 puff inhalation Q6H PRN 02/07/22 11/27/23 Unknown History aerosol inhaler shortness of breath or wheezing insulin aspart U-100 100 unit/mL See Rx Instructions .Route 06/07/22 11/27/23 09/20/23 Rx (3 mL) subcutaneous pen (Novolog .COMPLEX #1 ea FlexPen U-100 Insulin aspart) blood-glucose meter,continuous #1 ea 06/12/22 11/27/23 Unknown Rx (Dexcom G6 Lead Python Developer) blood-glucose sensor (Dexcom G6 #3 ea 06/12/22 11/27/23 Unknown Rx Sensor device) blood-glucose transmitter (Dexcom #1 ea 06/12/22 11/27/23 Unknown Rx G6 Transmitter device) fluticasone furoate 100 1 inh inhalation DAILY PRN 09/14/23 11/27/23 09/20/23 History mcg-vilanterol 25 mcg/dose Shortness Of Breath inhalation powder (Breo Ellipta) nitroglycerin 0.4 mg sublingual 0.4 mg sublingual Q5M PRN Chest 09/14/23 11/27/23 Unknown History tablet (Nitrostat) Pain aspirin 81 mg tablet,delayed 81 mg PO DAILY #30 tabs 0311/27/23 11/27/23 Rx release clopidogrel 75 mg tablet 75 mg PO DAILY #30 tabs 09/16/23 11/27/23 11/27/23 Rx sevelamer carbonate 800 mg tablet 800 mg PO TID #90 tabs 09/16/23 11/27/23 11/27/23 Rx atorvastatin 40 mg tablet 40 mg PO BEDTIME 11/27/23 11/27/23 11/26/23 History carvedilol 12.5 mg tablet 12.5 mg PO BID 11/27/23 11/27/23 11/27/23 History clonidine HCl 0.1 mg tablet See Rx Instructions .Route .COMPLEX 11/27/23 11/27/23 Unknown History lisinopril 40 mg tablet 40 mg PO BEDTIME 11/27/23 11/27/23 11/26/23 History ticagrelor 90 mg tablet (Brilinta) 90 mg PO BID 11/27/23 11/27/23 11/27/23 History Allergies Allergy/AdvReac Type Severity Reaction Status Date / Time acetaminophen AdvReac Mild ADR-Gastrointestinal Verified 11/19/23 07:40 Upset Current Medications Generic Name Dose Route Start Last Admin Trade Name Freq PRN Reason Stop Dose Admin Carvedilol 12.5 mg 11/27/23 18:00 11/27/23 17:46 Carvedilol 12.5 Mg Tablet PO 12.5 mg BID SHAY Administration Heparin Sodium (Porcine) 0 unit 11/27/23 16:28 11/27/23 16:55 Heparin 5,000 Unit/Ml Inj 1 Ml IV 2,750 unit PRN PRN Administration Heparin weight-base protocol Protocol Hydralazine HCl 10 mg 11/27/23 18:12 11/27/23 18:33 Hydralazine 20 Mg/Ml Inj 1 Ml IVP 10 mg Q4H PRN Administration sbp> 180 Heparin Sodium/Sodium Chloride 25,000 unit in 500 mls @ 0 mls/hr 11/27/23 16:30 11/27/23 16:54 Heparin Drip IV 14 unit/kg/hr .Q0M SHAY 15.5 mls/hr Administration Protocol Per Protocol Pantoprazole Sodium 40 mg 11/27/23 16:45 11/27/23 16:56 Pantoprazole 40 Mg Sdv IVP 40 mg Q24H SHAY Administration Ticagrelor 90 mg 11/27/23 18:00 11/27/23 17:51 Ticagrelor 90 Mg Tablet PO 90 mg BID SHAY Administration PFSH Acute 2 PFSH: Medical History Intractable nausea and vomiting Diabetic gastroparesis Acute cystitis with hematuria CKD (chronic kidney disease) stage 3, GFR 30-59 ml/min ERICA (acute kidney injury) CHF (congestive heart failure), NYHA class III Pulmonary hypertension CAD (coronary artery disease) Neurogenic bladder Acute kidney injury superimposed on chronic kidney disease Metabolic acidosis COVID-19 Tobacco dependence Drug abuse Anemia Community acquired pneumonia Acute hyperglycemia Esophagitis Complicated UTI (urinary tract infection) Transaminitis Long-term insulin use History of pancreatitis Hyperlipidemia Celiac disease Recurrent UTI Non-alcoholic fatty liver disease Arnold-Chiari malformation Diabetic gastroparesis -continue Reglan Diabetic neuropathy associated with type 1 diabetes mellitus Headache, common migraine, intractable, with status migrainosus Cystitis Pleural effusion 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 Uncontrolled type 1 diabetes mellitus Lymphadenitis Ureterolithiasis Pyelonephritis PID (pelvic inflammatory disease) Anxiety Sepsis Respiratory failure HTN (hypertension) Pancreatitis DKA (diabetic ketoacidoses) Migraine headache Chronic headache Surgical History History of lung surgery -s/p LLL lobectomy secondary to cavitary pneumonia (2017) History of endoscopy History of cholecystectomy Family History Grandfather Diabetes Other Heart disease Hypertension Social History Smoking and tobacco/nicotine status: never used tobacco/nicotine Second hand smoke exposure: Yes Alcohol intake: never Substance/Drug Use: current Household members: children Housing: House Marital status: Single Current occupational status: unemployed Vitals/I&O/Wt Last Vital Signs Temp 97.9 F 11/27/23 12:06 Pulse 65 11/27/23 18:30 Resp 19 H 11/27/23 18:30 BP 189/102 11/27/23 18:30 Pulse Ox 97 11/27/23 18:30 O2 Del Method Room Air 11/27/23 17:34 Weight last 48 hrs Weight 56.699 kg Weight 55.338 kg Physical Exam 2 Narrative: Per RN- BP now improved to 135/85 uncomfortable in bed, NARD heent- nc/at, eomi, anicteric neck supple lungs few basal crackles hear t regular abdomen soft, +bs ext no edema, toe amp RT ACW permacath neuro- a,a, o x3 seen and examined w/ RN- audovisual quipment used- telehealth visit Data 11/27/23 17:13 11/27/23 12:58 A&P Assessment and plan (1) ESRD (end stage renal disease): 38 yr old female IDDM, CAD< HTN, PVD, ESRD on HD MWF 1. cAD and HFpEF- on echo in August 2023- for cardiac cath in am 2. ESRD- had CP on HD. discussed w/ RN and enrollment eligibility representative- per their exams she is euvolemic. as she has chest pain, + trops, is euvolemic, k is only 4.2 hemolyzed, bicarb is 24- no emergent indication for HD. I discussed w/ Dr Mooney will hold dialysis today and dialyze in am after [employer] 3. htn-hydralazine, lisinopril, coreg. would attempt to avoid clonidine - as i am concerned that she will have issues with compliance and may have rebound HTN if she misses doses. unless we use a catapress patch- and maybe have it changed weekly at dialysis 4.DM control 5. give lasix daily seen and examined w/ RN- telehealth video visit consent for telehealth and Hemodialysis obtained from the pt Plan as above Consult Attestations 2 Medical Necessity Statement: esrd, NSTEMI, HTN, IDDM Time Spent in Patient Care: Greater than 35 minutes Coding Level of Care Code Acute Code for [facility] Diagnoses ESRD (end stage renal disease) N18.6
[2023-11-27 20:51] LABS: Uric Acid 3.5 mg/dL (2.4-5.7)
[2023-11-27 21:16] LABS: Glucose Point of Care 173 mg/dL (70-110)
[2023-11-27] MEDS: FUROsemide 10 mg/mL SDV 10mL 80 MG IVP (21:26)
[2023-11-27] MEDS: atorvastatin 40 mg Tablet PO (21:26)
[2023-11-27] MEDS: lisinopril 20 mg Tablet 40 MG PO (21:26)
[2023-11-27] MEDS: sevelamer 800 mg Tablet PO (21:26)
[2023-11-27 23:09] LABS: Hepatitis B Surface AB 46.7 (11.5-1000); Hepatitis B Surface Antigen Non-Reactive (Nonreactive); Hepatitis C Virus Antibody Non-Reactive (Nonreactive)
[2023-11-28] VITALS (16 sets, daily range): BP systolic 90–202; BP diastolic 55–106; PULSE 60–79; RESP 10–22; TEMP 36.5–36.8; O2SAT 90–98; BMI 24.5
[2023-11-28 00:43] LABS: Partial Thromboplastin Time 39.4 SECONDS (23.9-36.7)
[2023-11-28] MEDS: heparin 5,000 unit/mL INJ 1 mL IV (03:03)
[2023-11-28] MEDS: morphine 4 mg/mL SDV 1 mL IVP ×4 (03:05→20:59)
[2023-11-28 04:53] LABS: Basophils # 0.1 10^3/uL (0.0-0.1); Basophils % 0.9 %; Eosinophils # 0.4 10^3/uL (0.0-0.8); Eosinophils % 6.4 %; Lymphocytes # 1.9 10^3/uL (0.8-4.8); Lymphocytes % 33.4 %; Mean Corpuscular HGB Conc 31.8 g/dL (30-55); Mean Corpuscular Hemoglobin 27.4 pg (27-33); Mean Platelet Volume 10.6 fL (7.4-10.4); Monocytes # 0.5 10^3/uL (0.2-0.9); Monocytes % 8.3 %; Neutrophils # 2.88 10^3/uL (1.8-7.7); Neutrophils % 50.8 %; Nucleated Red Blood Cells % 0 %; Platelet Count 134 10^3/cmm (157-399); Red Blood Count 4.42 10^6/uL (3.85-5.65); Red Cell Distribution Width 16.2 % (12.1-15.1); White Blood Count 5.66 10^3/uL (3.29-11.43)
[2023-11-28] MEDS: hyDRALAzine 20 mg/mL INJ 1 mL 10 MG IVP ×2 (05:07→16:09)
[2023-11-28 05:11] LABS: Alanine Aminotransferase 37 U/L (0-33); Alkaline Phosphatase 129 U/L (35-105); Aspartate Amino Transferase 46 U/L (0-32); Blood Urea Nitrogen 35 mg/dL (6-20); Calcium 8.6 mg/dL (8.5-10.5); Carbon Dioxide 26 mmol/L (22-29); Chloride 102 mmol/L (98-107); Globulin 3.6 g/dL (1.3-4.6); Glomerular Filtration Rate 11.6 mL/min (90-130); Glucose 258 mg/dL (65-115); Osmolality Calculated 309 mOsm/kg (285-295); Sodium 141 mmol/L (136-145); Total Bilirubin 0.2 mg/dL (0.15-1.2); Total Protein 6.6 g/dL (6.6-8.7)
[2023-11-28 05:12] LABS: Phosphorus 5.2 mg/dL (2.5-4.5)
[2023-11-28 05:13] LABS: Calcium 8.7 mg/dL (8.5-10.5); Creatinine Clr Calc Pharmacy 14.1334
[2023-11-28 05:20] LABS: Parathyroid Hormone 109.2 pg/mL (15-65)
[2023-11-28 05:26] LABS: Ferritin 918 ng/mL (15-150)
[2023-11-28 05:43] LABS: 25 Hydroxy Vitamin D 12 ng/mL (30-100)
--- NOTE | 2023-11-28 06:24 | PC.NURSE ---
This nurse called research lab assistant to see if they could put in orders for pre cath medications and was told that I would need to get them from Dr Burch. I called Dr Burch to confirm that patient will have LHC procedure at 0700. Dr Burch confirmed. I voiced that I had no orders for pre cath medications but [patient had aspirin that I could give early and Dr Burch agreed for me to give aspirin ONLY.
--- NOTE | 2023-11-28 06:25 | XACV_ITS ---
Exam Room: [facility] Ht: 152 cm Wt: 57 kg BSA: 1.56 m2 Gender: Female : 1985 Any Known Allergies: Other Exam Priority: Routine Procedure(s): Procedure Description: Diagnostic procedure Procedure Description: PCI procedure Procedure Description: Left Heart Catheterization Procedure Description: Drug Eluting Coronary Stent Procedure Description: PTCA Procedure Description: Miscellaneous Procedure Description: Angio-Seal Procedure Description: ACT Procedure Description: Coronary Angiography Diagnostic Cath Status: Urgent Diagnostic Findings * Left Main has no significant disease. * Circumflex has patent prior stent. * Right Coronary Artery has patent prior stent. * Mid Left Anterior Descending to Mid Left Anterior Descending: significant 80% stenosis, KORIN: 3 flow. * Coronary angiography shows right dominance. PCI Status: Urgent PCI Indication: NSTE - ACS Interventional Findings * Procedure detail: We engaged left main artery with XB 3.0 guide catheter. IV heparin was administered to maintain anticoagulation. 0.014 run-through guidewire was used to cross the severe mid LAD stenosis. We predilated the stenosis with 2.5 x 12 mm semicompliant balloon. This was followed by placement of 2.75 x 15 mm resolute [place] drug-eluting stent. We postdilated the stent with 3.0 x 8 mm NC balloon. At this time final angiogram was performed that showed excellent stent expansion, no residual stenosis and KORIN-3 flow. Guide guidewire and guide catheter were removed. Patient left the Reciprocating Drill Operator in stable condition.. * Mid Left Anterior Descending to Mid Left Anterior Descendin% stenosis treated with a AB TREK 2.50X12 RX BALLOON, RUTHANN Pedroza CYNTHIA 2.75X15 OLENA, and RUTHANN DOMINGUEZ EUPHORA RX [id number] BALLOON. 0% residual stenosis, KORIN: 3 flow. Conclusions 1. Severe mid LAD stenosis s/p successful revascularization with 1 stent.. 2. Mid Left Anterior Descending to Mid Left Anterior Descending was treated with a Balloon, Drug Eluting Stent, and Balloon. Recommendations * Dual antiplatelet therapy with aspirin and brilinta for at least 1 year. * High intensity statin therapy. * Outpatient cardiology follow up in 2 weeks. Interventional RX Recommendation: PCI w/o planned CABG Diagnostic RX Recommendation: PCI w/o planned CABG Anticoagulation: Heparin Pressures Phase:Rest AO : 152 / 80 ( 107 ) @ 8:26:00 AM 124 / 89 ( 107 ) @ 8:30:00 AM 147 / 79 ( 105 ) @ 8:33:00 AM 161 / 81 ( 113 ) @ 8:33:00 AM 158 / 78 ( 111 ) @ 8:35:00 AM 129 / 86 ( 106 ) @ 8:48:00 AM 143 / 87 ( 111 ) @ 8:49:00 AM LV : 160 / 4 / 23 @ 8:32:00 AM 157 / 6 / 25 @ 8:33:00 AM Valves Phase:DefaultPhase AV : 9.0 @ 8:04:09 AM 9.0 @ 8:04:09 AM AV Mean Gradient: 13.0 @ 8:04:09 AM Clinical Evaluation EBL: 5mL-10mL Procedural Details Procedure Consent Obtained. Pre-Procedure Time Out. Identified patient by full name and date of as verbalized by the patient/guarantor. Does the consent match the physician's order: Yes. Accurate & Complete Informed Consent: Yes. Inpatient/Outpatient History & Physical on Chart: Yes. If H&P is completed, is and addenduem needed: No; If yes, is the addendum complete: N/A. Visualize and Verify Site with Patient/Guarantor: N/A. Relevant Radiology Images available: Yes. Pre-op teaching completed and patient verbalized understanding. The risks, benefits, and alternatives of sedation and/or procedure were discussed by physician. The patient agrees to continue. Procedure started. [facility] Clinical Fraility Score: 6: Moderately Frail. Reciprocating Drill Operator Indications: ACS > 24 hours. Chest Pain Symptom Assessment: Atypical Angina. Correct patient, site and procedure confirmed by cath team. Current diagnosis: NSTEMI. PERRLA. Strong, equal hand photographic processor bilaterally. Lungs clear x 5 lobes. Current Diagnosis : NSTEMI. IV Site on Arrival: 20 gauge in the right forearm. IV Fluids: 0.9% NaCl at KVO. 0 mL infused prior to cath lab radiological technologist. Oxygen started at 2liters/min via nasal canula. bilateral groins was prepped with chloroprep then draped in the usual sterile fashion. Baseline sample Acquired. HR: 70 BPM. Physician notified. Physician arrived. Physician scrubbed in. Immediate Pre-Procedure Time Out. Correct Patient: Yes; Correct Procedure: Yes; Correct Site: Yes; Correct Patient Position: Yes; Correct Supplies: Yes; Dried Flammable Prep: Yes; Blood Products Available: N/A;. Lidocaine 1% infiltrated to the right groin. Venous access obtained with a micropuncture set. Arterial access obtained with micropuncture set. A 5 anguillan JL4 catheter in over wire. Multiple views taken of left coronary artery. Catheter removed over the standard wire. A 5 anguillan JR4 catheter in over wire. Multiple views taken of right coronary artery. EDP Sample taken: LV 160/4,23; HR: 63 BPM; SpO2: 97%. Pullback taken: LV 157/6,25; AO 147/79(105); Mean: 13mmHg, Peak to Peak: 9mmHg, SEP: 18sec/min; HR: 63 BPM; SpO2: 98%. Catheter removed over the standard wire. ACT drawn. Results 177 seconds. Therapeutic limits - pre-heparin administration 90-150 seconds and monitoring heparin during a vascular procedure >250 seconds. 6 anguillan XB 3 guide catheter was inserted over the wire. Runthrough guidewire was advanced through the guide catheter to lesion in the mid LAD. Inflation number : 1 A AB TREK 2.50X12 RX BALLOON was prepped and advanced across the Mid LAD , then inflated to 10 ROSIE for 0:12 seconds. Inflation number: 2 The AB TREK 2.50X12 RX BALLOON was reinflated across the Mid LAD, to 10 ROSIE for 0:14 seconds. Balloon out. Results checked. Inflation Number : 3 A MDT R CYNTHIA 2.75X15 OLENA -Lot Number# _[id number] EXP: 04/30/2024 was prepped and advanced across the Mid LAD. The stent was deployed at 14 ROSIE for 0:14 seconds. Stent balloon out over wire. Results checked. Inflation number : 4 A MDT NC EUPHORA RX [id number] BALLOON was prepped and advanced across the Mid LAD , then inflated to 12 ROSIE for 0:16 seconds. Inflation number: 5 The MDT NC EUPHORA RX [id number] BALLOON was reinflated across the Mid LAD, to 12 ROSIE for 0:14 seconds. Balloon out. Wire out. Results checked. ACT drawn. Results out of range high seconds. Therapeutic limits - pre-heparin administration 90-150 seconds and monitoring heparin during a vascular procedure >250 seconds. Guide catheter out. Lidocaine 1% infiltrated to the right groin. A Angio-Seal VIP ([place]. Manuel) was successful obtaining hemostatsis at the Right Femoral artery insertion site. A Suture was successful obtaining hemostatsis at the Right Femoral vein insertion site. Post Procedure: Pulses reassessed and unchanged. PERRLA. Strong, equal hand photographic processor bilaterally. No VTE prophylaxis required. Medication's Wasted: Lidocaine 1% = 5 mL. Medication's Wasted: Heparin = 3000 units. Medication's Wasted: Other = Fentanyl 50mcg, Versed 1 mg. Total IV fluids: 55 mL. Post-op diagnosis: Severe mid RCA stenosis, status post PCI placement of 1 stent. Complications: None. Estimated blood loss: 5mL-10mL. Responsiveness - Normal response to verbal stimuli; alert and oriented, PERRLA. Airway - Unaffected, no intervention required; spontaneous ventilation. Circulation: W/N/L, pulses unchanged. Nausea/Vomiting: No. Procedure completed. Patient transferred by bed to CPRU. Vital chart was stopped. Access Site Site: Right Femoral vein Sheath Size: 6 Fr Hemostasis Method: Suture Hemostasis Success: Successful Site: Right Femoral artery Sheath Size: 6 Fr Hemostasis Method: Angio-Seal VIP (St. Manuel) Hemostasis Success: Successful Procedure Medications Start: 7:17 AM Stop: 7:17 AM Medication: Versed Amount: 1 mg Route: I.V. Start: 7:19 AM Stop: 7:19 AM Medication: Fentanyl Amount: 25 mcg Route: I.V. Start: 7:34 AM Stop: 7:34 AM Medication: Heparin Amount: 3000 units Route: I.V. Start: 7:52 AM Stop: 7:52 AM Medication: Brilinta Amount: 90 mg Route: P.O. Start: 7:56 AM Stop: 7:56 AM Medication: Fentanyl Amount: 25 mcg Route: I.V. Start: 8:00 AM Stop: 8:00 AM Medication: Brilinta Amount: 90 mg Route: P.O. I, the attending physician, have reviewed and verified all procedure medications. Yes, all medications given per verbal order History/Risk Factors Hypertension: Yes Dyslipidemia: No Peripheral Arterial Disease (PAD): No Myocardial Infarction (MD): No Obesity: No Renal Disease: Yes Tobacco Use: Current/Recent(w/in 1 year) Dialysis: Current Prior Interventions PCI: Yes CABG: No Valve Surgery: No Date of PCI: 09/14/2023 Report Signatures Finalized by Riccardo Burch MD on 12/08/2023 02:24 PM
[2023-11-28] MEDS: aspirin 81 mg EC Tablet PO (06:47)
[2023-11-28 06:48] LABS: Glucose Point of Care 244 mg/dL (70-110)
--- NOTE | 2023-11-28 07:17 | W.PM.OPSUD ---
Surgery/Procedure H&P Update DATE OF PROCEDURE: November 28, 2023 DATE H&P PERFORMED: 11/27/23 H&P UPDATE INFORMATION: I have reviewed H&P completed within last 30 days, I have examined patient prior to procedure and No changes to prior documentation PREOP DIAGNOSIS: NSTEMI PRIMARY INDICATION FOR PROCEDURE: NSTEMI PLANNED PROCEDURE: Left heart cath with possible percutaneous coronary intervention PATIENT REASSESSED PRIOR TO SEDATION, WITH NO CHANGE NOTED: Yes PHYSICAL EXAM: alert, oriented x 3, clear to auscultation bilaterally and regular rate & rhythm AIRWAY EVAL/ANESTHESIA PLAN: normal airway, ASA III, Local Anesthesia, Risks, benefits & alternatives of sedation and/or procedure discussed and Patient agrees to continue as planned ADDITIONAL INFORMATION: Moderate sedation
--- NOTE | 2023-11-28 07:25 | P.PN_ITS ---
Subjective 2 Subjective: seen this morning pt going for cath this morning. hypertensive this am Vitals/I&O/Wt Last Vital Signs Temp 98.2 F 11/28/23 05:15 Pulse 64 11/28/23 05:15 Resp 20 H 11/28/23 05:15 BP 181/99 11/28/23 05:15 Pulse Ox 97 11/28/23 05:15 O2 Del Method Room Air 11/27/23 17:34 11/27/23 11/28/23 11/28/23 22:59 06:59 14:59 Intake Total 120 / 120 158.358 / 278.358 Balance 120 / 120 158.358 / 278.358 Weight last 48 hrs Weight 56.926 kg Weight 56.699 kg Weight 55.338 kg Physical Exam 2 Narrative: Patient is euvolemic GCS 15 Currently on room air Hemodynamically stable Hypertensive Currently on heparin drip No active chest pain S1, S2 Abdomen soft Laying comfortably in her bed Data 11/28/23 04:46 11/28/23 04:46 A&P Assessment and plan (1) CHF (congestive heart failure), NYHA class III: Qualifiers: Congestive heart failure chronicity: acute on chronic Congestive heart failure type: systolic Qualified Code(s): I50.23 - Acute on chronic systolic (congestive) heart failure (2) NSTEMI (non-ST elevated myocardial infarction): (3) Chest pain: (4) Coronary artery disease: Qualifiers: Coronary Disease-Associated Artery/Lesion type: unspecified vessel or lesion type (5) ESRD (end stage renal disease): (6) Diabetic neuropathy associated with type 1 diabetes mellitus: Qualifiers: Diabetes mellitus complication detail: diabetic polyneuropathy Qualified Code(s): E10.42 - Type 1 diabetes mellitus with diabetic polyneuropathy Plan Non-STEMI Start ACS protocol Continue aspirin and Brilinta No active chest pain at the time evaluation Requested echo Continue heparin drip had recent revised pci done at [facility]. awaiting records. End-stage renal disease will dialyze her today after angiogram Patient could not finish her dialysis yesterday Will consult Dr. Rodriguez Cardiology consulted. Plan for cath today. Insulin-dependent diabetes no sign of DKA She is on renal dialysis diet for now N.p.o. after midnight Full code Patient does not smoke, not endorsing use of recreational drugs Hypertension urgency: would use IV medication on as-needed basis to control blood pressure keep it below 130/80 mmHg, Attestations 2 Medical Necessity Statement*: More than 2 midnights anticipated Diagnoses Acute on chronic systolic congestive heart failure, NYHA class 3 I50.23 Congestive heart failure chronicity: acute on chronic Congestive heart failure type: systolic NSTEMI (non-ST elevated myocardial infarction) I21.4 Chest pain R07.9 Coronary artery disease I25.10 Coronary Disease-Associated Artery/Lesion type: unspecified vessel or lesion type ESRD (end stage renal disease) N18.6 Diabetic polyneuropathy associated with type 1 diabetes mellitus E10.42 Diabetes mellitus complication detail: diabetic polyneuropathy
--- NOTE | 2023-11-28 08:13 | P.PN_ITS ---
Subjective 2 Subjective: Patient had coronary angiogram showing severe mid LAD stenosis. Underwent successful revascularization with 1 stent. Vitals/I&O/Wt Last Vital Signs Temp 98.2 F 11/28/23 05:15 Pulse 64 11/28/23 08:05 Resp 16 11/28/23 08:05 BP 134/81 11/28/23 08:05 Pulse Ox 95 11/28/23 08:05 O2 Del Method Room Air 11/28/23 08:05 11/27/23 11/28/23 11/28/23 22:59 06:59 14:59 Intake Total 120 / 120 158.358 / 278.358 Balance 120 / 120 158.358 / 278.358 Weight last 48 hrs Weight 125 lb 8 oz Weight 125 lb Weight 122 lb Physical Exam 2 Narrative: GENERAL: Patient is alert, awake and oriented x3. [] NECK: No jugular vein distension. [] HEENT: No cyanosis. No icterus. No pallor. [] HEART: Regular S1 and S2. No murmur, rub or gallop. [] LUNGS: Clear to auscultate bilaterally. [] CENTRAL NERVOUS SYSTEM: Grossly nonfocal. [] EXTREMITIES: Lower extremities with 1+ edema bilaterally. Data 11/28/23 04:46 11/28/23 04:46 A&P Assessment and plan (1) NSTEMI (non-ST elevated myocardial infarction): (2) CAD (coronary artery disease): (3) CHF (congestive heart failure), NYHA class III: Qualifiers: Congestive heart failure type: systolic Congestive heart failure chronicity: acute on chronic Qualified Code(s): I50.23 - Acute on chronic systolic (congestive) heart failure (4) ESRD (end stage renal disease): Plan Patient had severe mid LAD stenosis status post successful revascularization with 1 stent. Continue aspirin and Brilinta. Dialysis today. High intensity statin therapy. ECHO is pending Thank you for involving us with care of this patient. Will continue to follow. Please call with questions. Attestations 2 Medical Necessity Statement*: Care expected to cross 2 midnights. Coding Level of Care Code Acute Code for [facility] Diagnoses NSTEMI (non-ST elevated myocardial infarction) I21.4 CAD (coronary artery disease) I25.10 Acute on chronic systolic congestive heart failure, NYHA class 3 I50.23 Congestive heart failure type: systolic Congestive heart failure chronicity: acute on chronic ESRD (end stage renal disease) N18.6
[2023-11-28 08:49] LABS: Glucose Point of Care 269 mg/dL (70-110)
[2023-11-28] MEDS: b-complex-vitamin c Tablet 1 EACH PO (08:51)
[2023-11-28] MEDS: sevelamer 800 mg Tablet PO ×3 (08:51→20:59)
[2023-11-28] MEDS: carvedilol 12.5 mg Tablet PO ×2 (08:51→19:53)
[2023-11-28] MEDS: insulin lispro 100 unit/1 mL SUBCUT ×2 (09:02→12:38)
--- NOTE | 2023-11-28 09:23 | PC.NURSE ---
received from cardiac record label internship via bed at 0840.report received.pt is alert and awake and oriented x 4.sr on monitor.right arterial femoral sheath was discontinued in record label internship and angioseal applied.right femoral venous sheath is in place.drsg is dry and intact and no hematoma noted.pt instructed in activity restrictions s/p arterial and venous procedures..and instructed to notify staff for any bleeding,pain,numbness..or for any concerrns at all.pt verb understanding of instructions
--- NOTE | 2023-11-28 10:05 | PC.PT ---
Received order for PT evaluation. Spoke with nursing and she reports pt is on bed rest for 8 hours after have a Cardiac Cath this morning. Plan to complete evaluation tomorrow.
--- NOTE | 2023-11-28 10:20 | P.PN_ITS ---
Subjective 2 Subjective: s/p cardiac cath and LAD stent this morning. BP now low. no n/v/f/c/benavides/d. still lethargic from anesthesia Medications: Reviewed: Yes Medication Review Details: Current Medications Acetaminophen (Acetaminophen 325 Mg Tablet) 650 mg PO Q6H PRN PRN Reason: Mild/Mod Pain Or Temp >/= 101 Albuterol/Ipratropium (Ipratropium-Albuterol 3 Ml Neb) 3 ml INHALATION Q6H.RESP PRN PRN Reason: SHORTNESS OF BREATH Aspirin (Aspirin 81 Mg Ec Tablet) 81 mg PO DAILY [facility] Last Admin: 11/28/23 06:47 Dose: 81 mg Atorvastatin Calcium (Atorvastatin 40 Mg Tablet) 40 mg PO BEDTIME [facility]AY Last Admin: 11/27/23 21:26 Dose: 40 mg Carvedilol (Carvedilol 12.5 Mg Tablet) 12.5 mg PO BID [facility] Last Admin: 11/28/23 08:51 Dose: 12.5 mg Glucagon (Glucagon 1 Mg/Ml Kit 1 Ml) 1 mg IM ONCE PRN; Protocol PRN Reason: Adult Acute Hypoglycemia Nursing Prot. Hydralazine HCl (Hydralazine 20 Mg/Ml Inj 1 Ml) 10 mg IVP Q4H PRN PRN Reason: sbp> 180 Last Admin: 11/28/23 05:07 Dose: 10 mg Dextrose (D5w) 500 mls @ 0 mls/hr IV ONCE PRN; Protocol PRN Reason: Adult Acute Hypoglycemia Prot Dextrose (D10w) 125 mls @ 750 mls/hr IV PRN PRN; Protocol PRN Reason: Adult Acute Hypoglycemia Nursing Protocol Dextrose (D10w) 250 mls @ 1,000 mls/hr IV PRN PRN; Protocol PRN Reason: Adult Acute Hypoglycemia Nursing Protocol Insulin Human Lispro (Insulin Lispro 100 Unit/1 Ml) 0 unit SUBCUT TIDWM [facility]; Protocol Last Admin: 11/28/23 09:02 Dose: 10 unit Lisinopril (Lisinopril 20 Mg Tablet) 40 mg PO BEDTIME [facility] Last Admin: 11/27/23 21:26 Dose: 40 mg Morphine Sulfate (Morphine 4 Mg/Ml Sdv 1 Ml) 4 mg IVP Q4H PRN PRN Reason: SEVERE PAIN Last Admin: 11/28/23 08:47 Dose: 4 mg Multivitamins (Y-Amywqdx-Kiruzsn C Tablet) 1 each PO DAILY [facility] Last Admin: 11/28/23 08:51 Dose: 1 each Non-Formulary Medication (Fluticasone Furoate-Vilanterol [Breo Ellipta]) 1 inh INHALATION DAILY PRN PRN Reason: Shortness Of Breath Ondansetron HCl (Ondansetron 2 Mg/Ml Sdv 2 Ml) 4 mg IVP Q8H PRN PRN Reason: vomiting, or N/V if npo Pantoprazole Sodium (Pantoprazole 40 Mg Sdv) 40 mg IVP Q24H [facility] Last Admin: 11/27/23 16:56 Dose: 40 mg Sevelamer Carbonate (Sevelamer 800 Mg Tablet) 800 mg PO TID [facility] Last Admin: 11/28/23 08:51 Dose: 800 mg Ticagrelor (Ticagrelor 90 Mg Tablet) 90 mg PO BID [facility] Last Admin: 11/28/23 09:03 Dose: Not Given Vitals/I&O/Wt Last Vital Signs Temp 97.9 F 11/28/23 08:45 Pulse 65 11/28/23 08:45 Resp 20 H 11/28/23 08:47 BP 162/98 11/28/23 08:45 Pulse Ox 98 11/28/23 08:47 O2 Del Method Room Air 11/28/23 09:30 11/27/23 11/28/23 11/28/23 22:59 06:59 14:59 Intake Total 120 / 120 158.358 / 278.358 240 / 240 Balance 120 / 120 158.358 / 278.358 240 / 240 Weight last 48 hrs Weight 56.926 kg Weight 56.699 kg Weight 55.338 kg Physical Exam 2 Narrative: Per RN- BP now low comfortable in bed, NARD heent- nc/at, eomi, anicteric neck supple lungs few basal crackles heart regular +LYNNETTE abdomen soft, +bs ext no edema, toe amp RT ACW permacath neuro- awake, tired, oriented x 3 seen and examined w/ RN- audovisual equipment used- telehealth visit Data 11/28/23 04:46 11/28/23 04:46 A&P Assessment and plan (1) ESRD (end stage renal disease): 38 yr old female IDDM, CAD, HTN, PVD, ESRD on HD MWF 1. cAD and HFpEF- on echo in August 2023- s/p cardiac cath and stent this am 2. ESRD- regular HD MWF. we shipped yesterday as she had a NSTEMI. we will dialyze her today 3. htn-will attempt to simplify her medication regimen - for now coreg and lisinopril 4.DM control 5. give lasix daily 6. hgb normal 7. phos binder . pth 109- no vit d analouge seen and examined w/ RN- telehealth video visit consent for telehealth and Hemodialysis obtained from the pt Plan as above Attestations 2 Medical Necessity Statement*: ESRD CAD- S/P STENT Time Spent in Patient Care: 16 - 35 minutes Coding Level of Care Code Acute Code for g Fwd Diagnoses ESRD (end stage renal disease) N18.6
--- NOTE | 2023-11-28 11:11 | PC.NURSE ---
right femoral venous sheath pulled at 1050.pressure held x 10 min.vss through-out procedure.no hematoma formation noted.site dressed with 2x2 gauze and secured with biocclusive drsg.pt instructed in activity restrictions s/p venous sheath pull and instructed to notify staff for any bleeding,pain,numbness..or for any concerns at all.pt verb understanding of instructions
--- NOTE | 2023-11-28 11:27 | PC.OT ---
OT EVALUATION ORDERS RECEIVED. PATIENT ON BEDREST SECONDARY TO CATH PROCEDURE THIS MORNING AND IS TO RECEIVE DIALYSIS THIS AFTERNOON. PER NURSING, PATIENT IS INDEPENDENT WITH ADLS.
[2023-11-28 12:07] LABS: Glucose Point of Care 182 mg/dL (70-110)
[2023-11-28 16:00] LABS: Glucose Point of Care 41 mg/dL (70-110)
[2023-11-28] MEDS: pantoprazole 40 mg SDV IVP (16:08)
[2023-11-28 16:22] LABS: Glucose Point of Care 43 mg/dL (70-110)
[2023-11-28] MEDS: dextrose 10% 125 ML 750 ML IV ×2 (16:23→16:48)
[2023-11-28 17:05] LABS: Glucose Point of Care 168 mg/dL (70-110)
[2023-11-28 17:05] LABS: Glucose Point of Care 251 mg/dL (70-110)
--- NOTE | 2023-11-28 17:08 | PC.NURSE ---
pt alerted staff at approx 1600,that she felt hypoglycemic.She was eating candy at bedside.Was awake and alert and slightly diaphoretic.Accucheck was 41.pt was given 2 containers of orange juice...blood sugar rechecked 15 min later..Accucheck 43.D10 initiated per protocol and dr dean notified.She ordered 250 cc of the D10 to be given.Bolus completed and blood sugar increased to 251.Blood sugar checked again 15 min later and it was 168.Dialysis nurse here to retrieve pt for dialysis session.She was updated to status of events and verb understanding to observe for s/sxs hypoglycemia.We will also obtain another blood sugar during session.taken by bed to dialysis at 1705 via bed.
--- NOTE | 2023-11-28 17:32 | PC.HD ---
Per control area operator's verbal orders, HD treatment for 2.5 hours with UF goal of 1000.
[2023-11-28 18:08] LABS: Glucose Point of Care 108 mg/dL (70-110)
--- NOTE | 2023-11-28 18:19 | PC.NURSE ---
pt in dialysis.accucheck at 1800 -108.dr dean notified. she ordered to stop sliding scale...check accuchecks q1hr through night and call md for sliding scale if needed.If blood sugar continues to drop...ad D10 at 30 cc/hr.will relay this to nightshift relief.
[2023-11-28 18:44] LABS: Glucose Point of Care 106 mg/dL (70-110)
[2023-11-28] MEDS: ondansetron 2 mg/ML SDV 2 mL 4 MG IVP (19:53)
[2023-11-28] MEDS: ticagrelor 90 mg Tablet PO ×2 (19:54→20:59)
[2023-11-28 20:02] LABS: Glucose Point of Care 156 mg/dL (70-110)
--- NOTE | 2023-11-28 20:07 | PC.HD ---
With 15 min remaining in dialysis, patient woke up and had a sudden bout of emesis, as well of complaining of a severe headache. While BP started out soft, it progressively benton thoughout treatment BP was retaken after emesis, and it was 200/110, which was a significant increase from the previous reading. Decision was made to terminate treatment emergently with 15 minutes remaining. UF goal per advertising sales representative's verbal orders was 1000 mL; 800 mL was removed. Patient had one further episode of emesis en route back to her room. Primary RN updated on condition.
[2023-11-28] MEDS: promethazine 25 mg/mL SDV 1 mL IM (20:35)
[2023-11-28] MEDS: atorvastatin 40 mg Tablet PO (20:59)
[2023-11-28] MEDS: lisinopril 20 mg Tablet 40 MG PO (20:59)
[2023-11-28 21:28] LABS: Glucose Point of Care 176 mg/dL (70-110)
--- NOTE | 2023-11-28 22:18 | PC.NURSE ---
Addendum entered by Iza Quezada RN 11/29/23 02:17: Per Dr Blackwell, if patient BG is consistent Accu checks can be taken q2hr. Original Note: Patient arrived on floor from dialysis at 1999. Patient was vomiting with BP of 202/106. BG was 156. Patient had coreg and brilinta due at 1800, this nurse administered zofran, then coreg and brilinta aprox 10-15 minutes later. Patient vomited medication. Dr Blackwell was notified and new orders were given.
[2023-11-28 22:35] LABS: Glucose Point of Care 171 mg/dL (70-110)
[2023-11-28 23:47] LABS: Glucose Point of Care 208 mg/dL (70-110)
[2023-11-29] VITALS (15 sets, daily range): BP systolic 117–194; BP diastolic 77–100; PULSE 70–82; RESP 13–25; TEMP 36.7–37.4; O2SAT 90–96; BMI 25.6
[2023-11-29 01:02] LABS: Glucose Point of Care 177 mg/dL (70-110)
[2023-11-29 02:17] LABS: Glucose Point of Care 173 mg/dL (70-110)
[2023-11-29 03:48] LABS: Glucose Point of Care 168 mg/dL (70-110)
[2023-11-29] MEDS: morphine 4 mg/mL SDV 1 mL IVP ×3 (04:16→16:06)
[2023-11-29 04:57] LABS: Basophils % 0.5 %; Eosinophils # 0.2 10^3/uL (0.0-0.8); Eosinophils % 3.2 %; Hematocrit 38.2 % (36-47); Lymphocytes # 1.3 10^3/uL (0.8-4.8); Lymphocytes % 20.4 %; Mean Corpuscular HGB Conc 30.9 g/dL (30-55); Mean Corpuscular Hemoglobin 27.4 pg (27-33); Mean Corpuscular Volume 88.8 fl (85-98); Monocytes # 0.6 10^3/uL (0.2-0.9); Monocytes % 10.3 %; Neutrophils # 4.09 10^3/uL (1.8-7.7); Neutrophils % 65.4 %; Nucleated Red Blood Cells % 0 %; Platelet Count 146 10^3/cmm (157-399); Red Cell Distribution Width 16.6 % (12.1-15.1); White Blood Count 6.24 10^3/uL (3.29-11.43)
[2023-11-29 05:23] LABS: Glucose Point of Care 209 mg/dL (70-110)
[2023-11-29 05:25] LABS: Anion Gap 14.8 (5-19); Blood Urea Nitrogen 20 mg/dL (6-20); Calcium 8.5 mg/dL (8.5-10.5); Carbon Dioxide 27 mmol/L (22-29); Chloride 101 mmol/L (98-107); Glomerular Filtration Rate 14.7 mL/min (90-130); Glucose 173 mg/dL (65-115); Magnesium 1.9 mg/dL (1.7-2.3); Osmolality Calculated 295 mOsm/kg (285-295); Potassium 3.8 mmol/L (3.5-5.1); Sodium 139 mmol/L (136-145)
[2023-11-29 05:28] LABS: Creatinine Clr Calc Pharmacy 17.7461; Phosphorus 4.1 mg/dL (2.5-4.5)
[2023-11-29 06:24] LABS: Glucose Point of Care 161 mg/dL (70-110)
--- NOTE | 2023-11-29 08:21 | P.PN_ITS ---
Subjective 2 Subjective: Cardiology coverage Patient was atherosclerotic heart diseas, non-ST elation myocardial infarction, congestive heart failure, status post angiogram followed by PCI of the LAD lesion. She has a history of type 2 diabetes, high blood pressure, dyslipidemia, end- stage renal disease, on hemodialysis. Patient has no chest pain or shortness of breath. He is complaining of some headache and feeling of weakness. She had hemodialysis yesterday. Medications: Medication Review Details: Current Medications Acetaminophen (Acetaminophen 325 Mg Tablet) 650 mg PO Q6H PRN PRN Reason: Mild/Mod Pain Or Temp >/= 101 Albuterol/Ipratropium (Ipratropium-Albuterol 3 Ml Neb) 3 ml INHALATION Q6H.RESP PRN PRN Reason: SHORTNESS OF BREATH Aspirin (Aspirin 81 Mg Ec Tablet) 81 mg PO DAILY [facility] Last Admin: 11/28/23 06:47 Dose: 81 mg Atorvastatin Calcium (Atorvastatin 40 Mg Tablet) 40 mg PO BEDTIME [facility] Last Admin: 11/28/23 20:59 Dose: 40 mg Carvedilol (Carvedilol 12.5 Mg Tablet) 12.5 mg PO BID [facility] Last Admin: 11/28/23 19:53 Dose: 12.5 mg Glucagon (Glucagon 1 Mg/Ml Kit 1 Ml) 1 mg IM ONCE PRN; Protocol PRN Reason: Adult Acute Hypoglycemia Nursing Prot. Hydralazine HCl (Hydralazine 20 Mg/Ml Inj 1 Ml) 10 mg IVP Q4H PRN PRN Reason: sbp> 180 Last Admin: 11/28/23 16:09 Dose: 10 mg Dextrose (D5w) 500 mls @ 0 mls/hr IV ONCE PRN; Protocol PRN Reason: Adult Acute Hypoglycemia Prot Dextrose (D10w) 250 mls @ 1,000 mls/hr IV PRN PRN; Protocol PRN Reason: Adult Acute Hypoglycemia Nursing Protocol Lisinopril (Lisinopril 20 Mg Tablet) 40 mg PO BEDTIME [facility] Last Admin: 11/28/23 20:59 Dose: 40 mg Morphine Sulfate (Morphine 4 Mg/Ml Sdv 1 Ml) 4 mg IVP Q4H PRN PRN Reason: SEVERE PAIN Last Admin: 11/29/23 04:16 Dose: 4 mg Multivitamins (C-Splcjak-Agcapye C Tablet) 1 each PO DAILY [facility] Last Admin: 11/28/23 08:51 Dose: 1 each Non-Formulary Medication (Fluticasone Furoate-Vilanterol [Breo Ellipta]) 1 inh INHALATION DAILY PRN PRN Reason: Shortness Of Breath Ondansetron HCl (Ondansetron 2 Mg/Ml Sdv 2 Ml) 4 mg IVP Q8H PRN PRN Reason: vomiting, or N/V if npo Last Admin: 11/28/23 19:53 Dose: 4 mg Pantoprazole Sodium (Pantoprazole 40 Mg Sdv) 40 mg IVP Q24H [facility] Last Admin: 11/28/23 16:08 Dose: 40 mg Promethazine HCl (Promethazine 25 Mg/Ml Sdv 1 Ml) 25 mg IM Q6H PRN PRN Reason: NAUSEA Last Admin: 11/28/23 20:35 Dose: 25 mg Sevelamer Carbonate (Sevelamer 800 Mg Tablet) 800 mg PO TID [facility] Last Admin: 11/28/23 20:59 Dose: 800 mg Ticagrelor (Ticagrelor 90 Mg Tablet) 90 mg PO BID [facility] Last Admin: 11/28/23 19:54 Dose: 90 mg Vitals/I&O/Wt Last Vital Signs Temp 98.0 F 11/29/23 07:54 Pulse 70 11/29/23 07:54 Resp 19 H 11/29/23 07:54 BP 134/94 11/29/23 07:54 Pulse Ox 90 11/29/23 07:54 O2 Del Method Room Air 11/29/23 07:54 11/28/23 11/29/23 11/29/23 22:59 06:59 14:59 Intake Total 425 / 905 466.642 / 1371.642 Output Total 1350 / 1350 Balance -925 / -445 466.642 / 21.642 Weight last 48 hrs Weight 131 lb 1 oz Weight 127 lb 13.89 oz Weight 125 lb 8 oz Weight 125 lb Weight 122 lb Physical Exam 2 Narrative: GENERAL: The patient is alert and oriented times three. Not in any acute distress. HEENT: No significant pallor, icterus or lymphadenopathy.Oral cavity: There are no mucous membrane lesions. NECK: Trachea appears to be central. No masses noted. No JVD or thyromegaly appreciated. RESPIRATORY: Chest is symmetrical. No intercostals muscle retraction or any accessory muscle activation. There is no chest wall tenderness. Breath sounds are heard bilaterally. No rales or rhonchi heard. No evidence of any consolidation. BREASTS: Deferred. HEART: The heart sounds are normal. No S3 or S4. Short systolic murmur in the left renal border. No diastolic murmur.. No pericardial rub ABDOMEN: No vessel pulsations or distention. No tenderness. No organomegaly appreciated. Bowel sounds are normally heard. : Deferred. RECTAL: Deferred. LYMPHATIC: No lymphadenopathy noted in the neck. EXTREMITIES: No edema or cyanosis. No clubbing. MUSCULOSKELETAL: No acute joint deformities or swelling SKIN: There are no significant rashes or ecchymosis NEUROPSYCHIATRIC: The patient is alert and oriented x3. Appears to be in a good mood. No tremors or rigidity noted. Data 11/29/23 04:09 11/29/23 04:09 Other Labs: Laboratory Last Values WBC 6.24 10^3/uL (3.29-11.43) 11/29/23 04:09 Corrected WBC Cancelled 11/27/23 12:58 RBC 4.30 10^6/uL (3.85-5.65) 11/29/23 04:09 Hgb 11.80 g/dL (11.27-16.99) 11/29/23 04:09 Hct 38.2 % (36-47) 11/29/23 04:09 MCV 88.8 fl (85-98) 11/29/23 04:09 MCH 27.4 pg (27-33) 11/29/23 04:09 MCHC 30.9 g/dL (30-55) 11/29/23 04:09 RDW 16.6 % (12.1-15.1) H 11/29/23 04:09 Plt Count 146 10^3/cmm (157-399) L 11/29/23 04:09 MPV 11.0 fL (7.4-10.4) H 11/29/23 04:09 Gran % Cancelled 11/27/23 12:58 Neut % (Auto) 65.4 % 11/29/23 04:09 Lymph % (Auto) 20.4 % 11/29/23 04:09 [place] % (Auto) 10.3 % 11/29/23 04:09 Eos % (Auto) 3.2 % 11/29/23 04:09 Baso % (Auto) 0.5 % 11/29/23 04:09 Neut # (Auto) 4.09 10^3/uL (1.8-7.7) 11/29/23 04:09 Lymph # (Auto) 1.3 10^3/uL (0.8-4.8) 11/29/23 04:09 [place] # (Auto) 0.6 10^3/uL (0.2-0.9) 11/29/23 04:09 Eos # (Auto) 0.2 10^3/uL (0.0-0.8) 11/29/23 04:09 Baso # (Auto) 0.0 10^3/uL (0.0-0.1) 11/29/23 04:09 Absolute Gran (auto) Cancelled 11/27/23 12:58 Nucleated RBC % (auto) 0 % 11/29/23 04:09 Nucleated RBCs # 0.0 /100WBC 11/29/23 04:09 APTT 39.4 SECONDS (23.9-36.7) H 11/28/23 00:00 Sodium 139 mmol/L (136-145) 11/29/23 04:09 Potassium 3.8 mmol/L (3.5-5.1) 11/29/23 04:09 Chloride 101 mmol/L (98-107) 11/29/23 04:09 Carbon Dioxide 27 mmol/L (22-29) 11/29/23 04:09 Anion Gap 14.8 (5-19) 11/29/23 04:09 BUN 20 mg/dL (6-20) 11/29/23 04:09 Creatinine 3.5 mg/dL (0.5-0.9) H 11/29/23 04:09 GFR Calculation 14.7 mL/min (90-130) L 11/29/23 04:09 Glucose 173 mg/dL (65-115) H 11/29/23 04:09 POC Glucose 161 mg/dL (70-110) H 11/29/23 06:20 Calculated Osmolality 295 mOsm/kg (285-295) 11/29/23 04:09 Uric Acid 3.5 mg/dL (2.4-5.7) 11/27/23 15:00 Calcium 8.5 mg/dL (8.5-10.5) 11/29/23 04:09 Phosphorus 4.1 mg/dL (2.5-4.5) 11/29/23 04:09 Magnesium 1.9 mg/dL (1.7-2.3) 11/29/23 04:09 Ferritin 918 ng/mL (15-150) H 11/28/23 04:46 Total Bilirubin 0.2 mg/dL (0.15-1.2) 11/28/23 04:46 AST 46 U/L (0-32) H 11/28/23 04:46 ALT 37 U/L (0-33) H 11/28/23 04:46 Alkaline Phosphatase 129 U/L (35-105) H 11/28/23 04:46 Troponin T Baseline 338 ng/L (0-10) H* 11/27/23 12:58 Troponin T 120 Minute 319.7 ng/L (0-10) H 11/27/23 15:00 Delta Troponin T -18.3 ABS# (0-10) L 11/27/23 15:00 Troponin T Hi Sens 6Hr 258.3 ng/L (0-10) H 11/27/23 18:58 Troponin T Hi Sens 6Hr Delta -79.7 ng/L (0-12) L 11/27/23 18:58 Total Protein 6.6 g/dL (6.6-8.7) 11/28/23 04:46 Albumin 3.0 g/dL (3.5-5.2) L 11/28/23 04:46 Globulin 3.6 g/dL (1.3-4.6) 11/28/23 04:46 25-OH Vitamin D Total 12 ng/mL (30-100) L 11/28/23 04:46 Procalcitonin 0.25 ng/mL (0-0.5) 11/27/23 15:00 TSH 2.92 uIU/mL (0.27-4.20) 11/27/23 15:00 PTH Intact 109.2 pg/mL (15-65) H 11/28/23 04:46 Calcium (PTH Intact) 8.7 mg/dL (8.5-10.5) 11/28/23 04:46 Hep Bs Antigen Non-reactive (Nonreactive) 11/27/23 15:00 Hep Bs Antibody 46.7 (11.5-1000) 11/27/23 15:00 Hepatitis C Antibody Non-reactive (Nonreactive) 11/27/23 15:00 A&P Assessment and plan (1) NSTEMI (non-ST elevated myocardial infarction): Status post cardiac catheterization, status post PCI of the LAD lesion. Hemodynamically seems to be stable. May continue on the current management. (2) CHF (congestive heart failure), NYHA class III: The heart failure seems to be clinically compensated. May continue on the current measures. Qualifiers: Congestive heart failure chronicity: acute on chronic Congestive heart failure type: systolic Qualified Code(s): I50.23 - Acute on chronic systolic (congestive) heart failure (3) Atherosclerotic heart disease of [place] coronary artery with other forms of angina pectoris: For the angiogram findings, please refer to the report. Patient's status post PCI of the LAD lesion. May continue on the current management. (4) ESRD (end stage renal disease): Patient on hemodialysis. Continue on the current dialysis schedule (5) Diabetic neuropathy associated with type 1 diabetes mellitus: Importance of aggressive management of the diabetes, cardiovascular complications of uncontrolled diabetes and the need for compliance to treatment were discussed. Patient seems to understand these well. We will have the follow-up evaluations as scheduled Qualifiers: Diabetes mellitus complication detail: diabetic polyneuropathy Qualified Code(s): E10.42 - Type 1 diabetes mellitus with diabetic polyneuropathy (6) HTN (hypertension): The blood pressure is fairly under control. May continue on the current management. Qualifiers: Hypertension type: primary hypertension Qualified Code(s): I10 - Essential (primary) hypertension (7) Hyperlipidemia: Patient is on atorvastatin. This may be continued. Qualifiers: Hyperlipidemia type: mixed hyperlipidemia Qualified Code(s): E78.2 - Mixed hyperlipidemia Plan If the patient continues to remain stable, may be discharged home from a cardiac standpoint. Disposition as per the primary Appointment to be seen at [facility] with Elza Carranza in 1 to [address] Burch in a month In the event of the patient developing any unusual chest pain, palpitations, SOB or any other new symptoms, advised to contact our office or come back to the hospital. Attestations 2 Medical Necessity Statement*: Possible discharge home today Coding Level of Care Code 39477 Diagnoses NSTEMI (non-ST elevated myocardial infarction) I21.4 Acute on chronic systolic congestive heart failure, NYHA class 3 I50.23 Congestive heart failure chronicity: acute on chronic Congestive heart failure type: systolic Atherosclerotic heart disease of [place] coronary artery with other forms of angina pectoris I25.118 ESRD (end stage renal disease) N18.6 Diabetic polyneuropathy associated with type 1 diabetes mellitus E10.42 Diabetes mellitus complication detail: diabetic polyneuropathy Primary hypertension I10 Hypertension type: primary hypertension Mixed hyperlipidemia E78.2 Hyperlipidemia type: mixed hyperlipidemia
--- NOTE | 2023-11-29 08:51 | PC.CHAP ---
Pastoral Care Encounter/Spiritual Assessment Type of Contact [] Declined bending roll operator visit [] Patient/Family/Request visit [] Outpatient visit [] Follow-up visit [] Physician referral [] Code/Alert [] Routine visit [] Staff referral [] Actively dying [x] Patient sleeping [] Family support [] [] Out of room [] Palliative care [] [] Receiving care in room [] Pre-surgical visit [] Trauma [] Long length of stay [] ICU visit [] Other: Relational/Emotional Strength [] Patient feels connected with others/family/visitors/staff [] Distress [] Loneliness/isolation [] Abandonment Spirituality of Patient [] Person of Marly [] Attends Muslim of their [place] [] Believes in Prayer [] Reads Bible or Orthodox materials [] There are Spiritual issues to be addressed Remedial Teacher Interventions [] Prayer [] Active listening [] Non-anxious presence [] Spiritual/emotional support [] Crisis/trauma care [] Spiritual counseling [] Bereavement support [] Provided bereavement packet [] Provided Bible/devotional materials [] Provided toy/stuffed animal, coloring book to patient or family member [] Provided Communion [] Anointing/[place] [] Salvation [] Completed spiritual assessment [] Other: Impact on Illness or Injury [] Angry [] Fearful [] Anxious [] Often cries [] Exhaustion [] Unable to work [] Unable to attend sikh [] Unable to walk/stand [] Unable to read [] Unable to drive [] Unable to eat/drink [] Unable to sleep [] Unable to be with family [] Patient intubated [] Other: Summary Time spent with patient
[2023-11-29] MEDS: ticagrelor 90 mg Tablet PO ×2 (08:53→17:35)
[2023-11-29] MEDS: aspirin 81 mg EC Tablet PO (08:53)
[2023-11-29] MEDS: sevelamer 800 mg Tablet PO (08:53)
[2023-11-29] MEDS: b-complex-vitamin c Tablet 1 EACH PO (08:53)
--- NOTE | 2023-11-29 08:57 | PM.PN ---
Subjective Subjective: seen and examined. POD #1 . had nausea and headache last night. no sob or cp or diarrhea Medications: Reviewed: Yes Medication Review Details: Current Medications Acetaminophen (Acetaminophen 325 Mg Tablet) 650 mg PO Q6H PRN PRN Reason: Mild/Mod Pain Or Temp >/= 101 Albuterol/Ipratropium (Ipratropium-Albuterol 3 Ml Neb) 3 ml INHALATION Q6H.RESP PRN PRN Reason: SHORTNESS OF BREATH Aspirin (Aspirin 81 Mg Ec Tablet) 81 mg PO DAILY [facility] Last Admin: 11/29/23 08:53 Dose: 81 mg Atorvastatin Calcium (Atorvastatin 40 Mg Tablet) 40 mg PO BEDTIME [facility] Last Admin: 11/28/23 20:59 Dose: 40 mg Carvedilol (Carvedilol 12.5 Mg Tablet) 12.5 mg PO BID [facility] Last Admin: 11/28/23 19:53 Dose: 12.5 mg Glucagon (Glucagon 1 Mg/Ml Kit 1 Ml) 1 mg IM ONCE PRN; Protocol PRN Reason: Adult Acute Hypoglycemia Nursing Prot. Hydralazine HCl (Hydralazine 20 Mg/Ml Inj 1 Ml) 10 mg IVP Q4H PRN PRN Reason: sbp> 180 Last Admin: 11/28/23 16:09 Dose: 10 mg Dextrose (D5w) 500 mls @ 0 mls/hr IV ONCE PRN; Protocol PRN Reason: Adult Acute Hypoglycemia Prot Dextrose (D10w) 250 mls @ 1,000 mls/hr IV PRN PRN; Protocol PRN Reason: Adult Acute Hypoglycemia Nursing Protocol Lisinopril (Lisinopril 20 Mg Tablet) 40 mg PO BEDTIME [facility] Last Admin: 11/28/23 20:59 Dose: 40 mg Morphine Sulfate (Morphine 4 Mg/Ml Sdv 1 Ml) 4 mg IVP Q4H PRN PRN Reason: SEVERE PAIN Last Admin: 11/29/23 04:16 Dose: 4 mg Multivitamins (M-Bggfujb-Plwlcff C Tablet) 1 each PO DAILY [facility] Last Admin: 11/29/23 08:53 Dose: 1 each Non-Formulary Medication (Fluticasone Furoate-Vilanterol [Breo Ellipta]) 1 inh INHALATION DAILY PRN PRN Reason: Shortness Of Breath Ondansetron HCl (Ondansetron 2 Mg/Ml Sdv 2 Ml) 4 mg IVP Q8H PRN PRN Reason: vomiting, or N/V if npo Last Admin: 11/28/23 19:53 Dose: 4 mg Pantoprazole Sodium (Pantoprazole 40 Mg Sdv) 40 mg IVP Q24H [facility] Last Admin: 11/28/23 16:08 Dose: 40 mg Promethazine HCl (Promethazine 25 Mg/Ml Sdv 1 Ml) 25 mg IM Q6H PRN PRN Reason: NAUSEA Last Admin: 11/28/23 20:35 Dose: 25 mg Sevelamer Carbonate (Sevelamer 800 Mg Tablet) 800 mg PO TID [facility] Last Admin: 11/29/23 08:53 Dose: 800 mg Ticagrelor (Ticagrelor 90 Mg Tablet) 90 mg PO BID [facility] Last Admin: 11/29/23 08:53 Dose: 90 mg Vitals/I&O/Wt Last Vital Signs Temp 98.0 F 11/29/23 07:54 Pulse 70 11/29/23 07:54 Resp 19 H 11/29/23 07:54 BP 134/94 11/29/23 07:54 Pulse Ox 90 11/29/23 07:54 O2 Del Method Room Air 11/29/23 07:54 11/28/23 11/29/23 11/29/23 22:59 06:59 14:59 Intake Total 425 / 905 466.642 / 1371.642 Output Total 1350 / 1350 Balance -925 / -445 466.642 / 21.642 Weight last 48 hrs Weight 59.449 kg Weight 58 kg Weight 56.926 kg Weight 56.699 kg Weight 55.338 kg Physical Exam Narrative: VS noted comfortable in bed, NARD heent- nc/at, eomi, anicteric neck supple lungs- clear heart regular +LYNNETTE abdomen soft, +bs ext no edema RT ACW permacath neuro- awake, alert oriented x 3 seen and examined w/ RN- audovisual equipment used- telehealth visit Data 11/29/23 04:09 11/29/23 04:09 A&P Assessment and plan (1) ESRD (end stage renal disease): 38 yr old female IDDM, CAD, HTN, PVD, ESRD on HD MWF 1. cAD and HFpEF- on echo in August 2023- s/p cardiac cath and PCI of the LAD lesion 2. ESRD- regular HD MWF. she had difficulty w/ dialysis yesterday. we will dialyze her today 3. htn-will attempt to simplify her medication regimen - for now coreg and lisinopril 4.DM control 5. give lasix daily 6. hgb normal 7. phos binder . pth 109- no vit d analouge seen and examined w/ RN- telehealth video visit consent for telehealth and Hemodialysis obtained from the pt Plan as above Attestations Medical Necessity Statement*: s/p stents Time Spent in Patient Care: 16 - 35 minutes (>than 50% of time spent in counselling and/or direct pt care on unit). Coding Level of Care Code Acute Code for Chg Fwd Diagnoses ESRD (end stage renal disease) N18.6
--- NOTE | 2023-11-29 09:41 | USCV_ITS ---
Donita Aguilar Age: 38 Gender: F : 1985 Exam Date: 11/29/2023 10:02 Ordering Phys: Aleksandra Garcia MD Technologist: CT Exam Location: [facility]_ Indication: rt groin pain post cath Findings No soft tissue mass or pseudoaneurysm at the right groin. No hematoma. Conclusions Negative ultrasound right groin. Dr. Debora Hollis DO (Electronically Signed) Final Date: 02 December 2023 07:58 S
[2023-11-29] MEDS: ondansetron 2 mg/ML SDV 2 mL 4 MG IVP ×2 (10:01→16:06)
--- NOTE | 2023-11-29 10:08 | PC.NURSE ---
ultrasound at bedside to check for aneurysm on right groin s/p cath.
[2023-11-29 10:59] LABS: Glucose Point of Care 252 mg/dL (70-110)
--- NOTE | 2023-11-29 11:05 | PC.NURSE ---
ushered via bed to dialysis room for her scheduled dialysis.
--- NOTE | 2023-11-29 13:09 | PC.OT ---
OT services withheld this date as patient is in Dialysis. To attempt on a later date.
--- NOTE | 2023-11-29 13:46 | PM.DCS ---
Discharge Providers Date of Admission: 11/27/23 16:49 Date of Discharge: November 29, 2023 Attending Provider at Admission: Aleksandra Garcia MD Attending Provider at Discharge: Aleksandra Garcia MD Primary Care Provider: SUZANNE Dias Diagnoses at Discharge Discharge Diagnosis (1) NSTEMI (non-ST elevated myocardial infarction): Status: Acute (2) CHF (congestive heart failure), NYHA class III: Status: Acute Qualifiers: Congestive heart failure chronicity: acute on chronic Congestive heart failure type: systolic Qualified Code(s): I50.23 - Acute on chronic systolic (congestive) heart failure (3) 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: Status: Acute (4) ESRD (end stage renal disease): Status: Acute (5) Diabetic neuropathy associated with type 1 diabetes mellitus: Status: Chronic Qualifiers: Diabetes mellitus complication detail: diabetic polyneuropathy Qualified Code(s): E10.42 - Type 1 diabetes mellitus with diabetic polyneuropathy (6) HTN (hypertension): Status: Acute Qualifiers: Hypertension type: primary hypertension Qualified Code(s): I10 - Essential (primary) hypertension (7) Hyperlipidemia: Status: Acute Qualifiers: Hyperlipidemia type: mixed hyperlipidemia Qualified Code(s): E78.2 - Mixed hyperlipidemia Reason for Visit Reason for Visit: Chest Pain Hospital Course Hospital Course Patient presented to the hospital with an NSTEMI. She had persistent chest pressure and pain and was taken to Director Of Occupational Therapy. 1 stent placed to LAD. See cath report. Patient did have episodes of hypoglycemia during hospital stay. Sliding scale insulin had to be removed. Patient's blood sugars are quite labile. Discussed with patient prior to discharge to hold off on insulin at home and to monitor her blood sugar. He is to follow-up with her blood sugars with her primary care doctor. ? Patient sent home on aspirin Brilinta, atorvastatin, carvedilol. Groin site examined no evidence of fluctuance or hematoma or bleeding. Vital stable at discharge. Patient was dialyzed prior to discharge. Physical Exam Narrative: Patient is euvolemic GCS 15 Currently on room air Hemodynamically stable Hypertensive Currently on heparin drip No active chest pain S1, S2 Abdomen soft Laying comfortably in her bed Discharge Data Studies Completed and Pending Completed Studies During Hospitalization Category Date Time Status XR chest 1V portable [id number] Stat Exams 11/27/23 12:31 Completed CV. echo complete* [id number] Stat Ultrasound 11/27/23 16:39 Completed Pending at discharge Category Date Time Status SENIOR GEOLOGIST request for service Routine Exams 11/28/23 06:25 Taken Phosphorus AM LABS Lab 11/30/23 04:00 [place] [id number] Stat Ultrasound 11/29/23 09:41 Taken Radiology Impressions Chest X-Ray 11/27/23 12:31 IMPRESSION: Stable chest without acute abnormality. Laboratory Results WBC 6.24 10^3/uL (3.29-11.43) 11/29/23 04:09 Corrected WBC Cancelled 11/27/23 12:58 RBC 4.30 10^6/uL (3.85-5.65) 11/29/23 04:09 Hgb 11.80 g/dL (11.27-16.99) 11/29/23 04:09 Hct 38.2 % (36-47) 11/29/23 04:09 MCV 88.8 fl (85-98) 11/29/23 04:09 MCH 27.4 pg (27-33) 11/29/23 04:09 MCHC 30.9 g/dL (30-55) 11/29/23 04:09 RDW 16.6 % (12.1-15.1) H 11/29/23 04:09 Plt Count 146 10^3/cmm (157-399) L 11/29/23 04:09 MPV 11.0 fL (7.4-10.4) H 11/29/23 04:09 Gran % Cancelled 11/27/23 12:58 Neut % (Auto) 65.4 % 11/29/23 04:09 Lymph % (Auto) 20.4 % 11/29/23 04:09 [place] % (Auto) 10.3 % 11/29/23 04:09 Eos % (Auto) 3.2 % 11/29/23 04:09 Baso % (Auto) 0.5 % 11/29/23 04:09 Neut # (Auto) 4.09 10^3/uL (1.8-7.7) 11/29/23 04:09 Lymph # (Auto) 1.3 10^3/uL (0.8-4.8) 11/29/23 04:09 [place] # (Auto) 0.6 10^3/uL (0.2-0.9) 11/29/23 04:09 Eos # (Auto) 0.2 10^3/uL (0.0-0.8) 11/29/23 04:09 Baso # (Auto) 0.0 10^3/uL (0.0-0.1) 11/29/23 04:09 Absolute Gran (auto) Cancelled 11/27/23 12:58 Nucleated RBC % (auto) 0 % 11/29/23 04:09 Nucleated RBCs # 0.0 /100WBC 11/29/23 04:09 APTT 39.4 SECONDS (23.9-36.7) H 11/28/23 00:00 Sodium 139 mmol/L (136-145) 11/29/23 04:09 Potassium 3.8 mmol/L (3.5-5.1) 11/29/23 04:09 Chloride 101 mmol/L (98-107) 11/29/23 04:09 Carbon Dioxide 27 mmol/L (22-29) 11/29/23 04:09 Anion Gap 14.8 (5-19) 11/29/23 04:09 BUN 20 mg/dL (6-20) 11/29/23 04:09 Creatinine 3.5 mg/dL (0.5-0.9) H 11/29/23 04:09 GFR Calculation 14.7 mL/min (90-130) L 11/29/23 04:09 Glucose 173 mg/dL (65-115) H 11/29/23 04:09 POC Glucose 252 mg/dL (70-110) H 11/29/23 10:56 Calculated Osmolality 295 mOsm/kg (285-295) 11/29/23 04:09 Uric Acid 3.5 mg/dL (2.4-5.7) 11/27/23 15:00 Calcium 8.5 mg/dL (8.5-10.5) 11/29/23 04:09 Phosphorus 4.1 mg/dL (2.5-4.5) 11/29/23 04:09 Magnesium 1.9 mg/dL (1.7-2.3) 11/29/23 04:09 Ferritin 918 ng/mL (15-150) H 11/28/23 04:46 Total Bilirubin 0.2 mg/dL (0.15-1.2) 11/28/23 04:46 AST 46 U/L (0-32) H 11/28/23 04:46 ALT 37 U/L (0-33) H 11/28/23 04:46 Alkaline Phosphatase 129 U/L (35-105) H 11/28/23 04:46 Troponin T Baseline 338 ng/L (0-10) H* 11/27/23 12:58 Troponin T 120 Minute 319.7 ng/L (0-10) H 11/27/23 15:00 Delta Troponin T -18.3 ABS# (0-10) L 11/27/23 15:00 Troponin T Hi Sens 6Hr 258.3 ng/L (0-10) H 11/27/23 18:58 Troponin T Hi Sens 6Hr Delta -79.7 ng/L (0-12) L 11/27/23 18:58 Total Protein 6.6 g/dL (6.6-8.7) 11/28/23 04:46 Albumin 3.0 g/dL (3.5-5.2) L 11/28/23 04:46 Globulin 3.6 g/dL (1.3-4.6) 11/28/23 04:46 25-OH Vitamin D Total 12 ng/mL (30-100) L 11/28/23 04:46 Procalcitonin 0.25 ng/mL (0-0.5) 11/27/23 15:00 TSH 2.92 uIU/mL (0.27-4.20) 11/27/23 15:00 PTH Intact 109.2 pg/mL (15-65) H 11/28/23 04:46 Calcium (PTH Intact) 8.7 mg/dL (8.5-10.5) 11/28/23 04:46 Hep Bs Antigen Non-reactive (Nonreactive) 11/27/23 15:00 Hep Bs Antibody 46.7 (11.5-1000) 11/27/23 15:00 Hepatitis C Antibody Non-reactive (Nonreactive) 11/27/23 15:00 Vitals Last Vital Signs Temp 99.3 F 11/29/23 11:23 Pulse 79 11/29/23 11:23 Resp 16 11/29/23 11:23 BP 142/80 11/29/23 11:23 Pulse Ox 95 11/29/23 08:40 O2 Del Method Room Air 11/29/23 08:40 Discharge Plan Discharge Patient Disposition: Home Condition: Stable Prescriptions: Continued (DME) Dexcom G6 Manager Of School Misc See Rx Instructions .Route Qty: 1 0RF Rx Instructions: As directed (DME) Dexcom G6 Sensor Device See Rx Instructions .Route Qty: 3 0RF Rx Instructions: As directed (DME) Dexcom G6 Transmitter Device See Rx Instructions .Route Qty: 1 0RF Rx Instructions: As directed albuterol sulfate 90 mcg/actuation HFA aerosol inhaler 2 puff inhalation Q6H PRN (Reason: shortness of breath or wheezing) fluticasone furoate-vilanterol [Breo Ellipta] 100-25 mcg/dose Blister With Device 1 inh INHALATION DAILY PRN (Reason: Shortness Of Breath) nitroglycerin [Nitrostat] 0.4 mg Tablet, Sublingual 0.4 mg SUBLINGUAL Q5M PRN (Reason: Chest Pain) Rx Instructions: do not exceed 3 doses per episode aspirin 81 mg Tablet,Delayed Release (Dr/Ec) 81 mg PO DAILY Qty: 30 0RF sevelamer carbonate 800 mg Tablet 800 mg PO TID Qty: 90 0RF carvedilol 12.5 mg tablet 12.5 mg PO BID atorvastatin 40 mg tablet 40 mg PO BEDTIME clonidine HCl 0.1 mg tablet See Rx Instructions .ROUTE .COMPLEX Rx Instructions: TAKE 1 TABLET IF SYSTOLIC BLOOD PRESSURE IS GREATER THAN 160, REPEAT ONCE IF SYSTOLIC BLOOD PRESSURE IS STILL OVER 160 AFTER 1 HOUR. lisinopril 40 mg tablet 40 mg PO BEDTIME Brilinta 90 mg tablet 90 mg PO BID Qty: 60 0RF Discontinued insulin aspart U-100 [Novolog FlexPen U-100 Insulin] 100 unit/mL (3 mL) Insulin Pen See Rx Instructions .ROUTE .COMPLEX Qty: 1 3RF Rx Instructions: Take per sliding scale three times daily clopidogrel 75 mg tablet 75 mg PO DAILY Qty: 30 1RF Discharge Orders: Discharge Order (Routine); Ordered 11/29/23 Ordered By: Aleksandra Garcia Referrals: Elizabeth Dougherty FNP [Primary Care Provider] - 4-7 days (Please call Elizabeth Dougherty Office on Saturday at [phone] to schedule a follow up appointment for 4-7 days. Thank you.) Burch,Riccardo, M.D [Physician] - 1 month (Your Dr. Burch follow up appointment will be scheduled during your Elza Carranza appointment. Thank you.) Elza Carranza FNP [Nurse Practitioner] - 12/30/23 1:00 pm Discharge Diet: Cardiac and Diabetic Discharge Activity: Resume usual activity Patient Instructions: Coronary Angioplasty (DC), Hypoglycemia in a Person with Diabetes (DC), Coronary Intravascular Stent Placement (DC), Opioid Safety, Post Angiogram Home Care Instructions, Post Heart Attack Stoplight Activity Restrictions/Additional Instructions: Please keep a log of your blood sugars at home. Discuss your blood sugar numbers to your pcp and your pcp will give you further instructions if you need to take it or not. For now, due to your hypoglycemia, we discontinue your home insulin. 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
[2023-11-29] MEDS: carvedilol 12.5 mg Tablet PO ×2 (13:59→17:35)
[2023-11-29 14:27] LABS: Glucose Point of Care 175 mg/dL (70-110)
[2023-11-29] MEDS: pantoprazole 40 mg SDV IVP (16:06)
--- NOTE | 2023-11-29 16:27 | PC.NURSE ---
Discharge papers provided to pt Discuss to pt on follow up appointments and post angiogram home care instructions. stent card given to pt.
--- NOTE | 2023-11-29 16:46 | PC.NURSE ---
discharge papers provided to pt Educated pt on her follow up appts, cont. home meds except discontinued meds such as plavix and insulin aspart inj. Educated pt on hypoglycemia and keep a log of her blood sugars at home and to call her pcp for the trend and then further instructions will be made by her pcp. Pt stent card is given to pt. she said she will call her mother to pick her up.
[2023-11-29 16:47] LABS: Glucose Point of Care 191 mg/dL (70-110)
--- NOTE | 2023-11-29 17:32 | PC.NURSE ---
Asked pt what time her ride will be here and she said her father will be the one to pick her up around 7 pm.
--- NOTE | 2023-11-29 18:40 | PC.NURSE ---
Discharge Note Patient discharged to home via private vehicle accompanied by father. Discharge instructions reviewed with patient and/or route sales representative. Mobile pharmacy medications and/or prescriptions provided. Belongings/home medications returned.
== END 2023-11-29 18:18 | disposition home or self-care (01) | DRG 321 ==
LOC: ER 16:35 → CSU 16:49
PROVIDERS: Internal Medicine; Internal Medicine Nephrology; Admitting Provider Internal Medicine; Emergency Provider Emergency Medicine; PCP Nurse Practitioner Family; Visit Provider Internal Medicine
PROC: 027034Z Dilation of Coronary Artery, One Artery with Drug-eluting Intraluminal Device, Percutaneous Approach (ICD-10-PCS; principal; 2023-11-28 07:00)
PROC: 027034Z Dilation of Coronary Artery, One Artery with Drug-eluting Intraluminal Device, Percutaneous Approach (ICD-10-PCS; 2023-11-28 07:00)
DX: I21.4 Non-ST elevation (NSTEMI) myocardial infarction (principal); I50.23 Acute on chronic systolic (congestive) heart failure; N18.6 End stage renal disease; I13.2 Hypertensive heart and chronic kidney disease with heart failure and with stage 5 chronic kidney disease, or end stage renal disease; I25.10 Atherosclerotic heart disease of native coronary artery without angina pectoris; E10.22 Type 1 diabetes mellitus with diabetic chronic kidney disease; E10.65 Type 1 diabetes mellitus with hyperglycemia; E10.43 Type 1 diabetes mellitus with diabetic autonomic (poly)neuropathy; K31.84 Gastroparesis; E10.42 Type 1 diabetes mellitus with diabetic polyneuropathy; E10.51 Type 1 diabetes mellitus with diabetic peripheral angiopathy without gangrene; I27.20 Pulmonary hypertension, unspecified; N31.9 Neuromuscular dysfunction of bladder, unspecified; F17.210 Nicotine dependence, cigarettes, uncomplicated; E78.2 Mixed hyperlipidemia; I16.0 Hypertensive urgency; F41.9 Anxiety disorder, unspecified; Z79.4 Long term (current) use of insulin; Z79.02 Long term (current) use of antithrombotics/antiplatelets; Z87.01 Personal history of pneumonia (recurrent); Z95.5 Presence of coronary angioplasty implant and graft; Z99.2 Dependence on renal dialysis; Z86.16 Personal history of COVID-19; Z87.440 Personal history of urinary (tract) infections; Z90.2 Acquired absence of lung [part of]
CPT/HCPCS: 36415; 36416; 71045; 80048; 80053; 82306; 82310; 82728; 82962; 83735; 83970; 84100; 84145; 84443; 84484; 84550; 85025; 85049; 85347; 85730; 86706; 86803; 87340; 90935; 93005; 93306; 93458; 93926; 94664; 96365; 96372; 96374; 96375; 96376; 97161; 99152; 99153; 99285; C1725; C1760; C1769; C1874; C1887; C1894; C9113; C9600; G0269; J0360; J1644; J1815; J1940; J2250; J2270; J2405; J2550; J3010; J7030; J7799; Q3014; Q9967

== ENCOUNTER 2023-12-05 19:51 | Emergency (ER) | payer MEDICAID, SELFPAY ==
[2023-12-05 19:58] VITALS: BP 187/99; PULSE 75; RESP 20; TEMP 36.8; O2SAT 98; BMI 23.8
--- NOTE | 2023-12-05 19:59 | ECG_ITS ---
[facility] Test Date: 2023-12-05 Pat Name: Donita Aguilar Department: Room: Gender: Female Sleeve Turner: : 1985 Requested By: Bro James Order Number: [id number] Faviola MD: Gilberto Eugene M.D. Measurements Intervals [place] Rate: 76 P: 52 HI: 186 QRS: -35 QRSD: 106 T: 75 QT: 378 QTc: 428 Interpretive Statements SINUS RHYTHM LEFT AXIS DEVIATION [QRS AXIS < -30] POSSIBLE ANTERIOR MYOCARDIAL INFARCTION , OF INDETERMINATE AGE [30 ms Q WAVE IN V3/V4, OR R < 0.2 mV IN V4] Compared to ECG 11/27/2023 18:07:21 Left-axis deviation now present Myocardial infarct finding now present T-wave abnormality no longer present Possible ischemia no longer present Electronically Signed On 12-05-2023 22:05:01 CDT by Gilberto Eugene M.D. [id number]
--- NOTE | 2023-12-05 19:59 | XRR_ITS ---
PROCEDURE INFORMATION: Exam: XR Chest Exam date and time: 12/05/2023 8:55 PM Age: 38 years old Clinical indication: Shortness of breath and other: Pain; Prior surgery; Surgery date: 6+ months; Surgery type: Port and left lower lung removal; Additional info: Chest pain TECHNIQUE: Imaging protocol: Radiologic exam of the chest. Views: 1 view. COMPARISON: CR XR chest 1V portable [id number] 11/27/2023 12:35 PM FINDINGS: Tubes, catheters and devices: A right jugular dialysis catheter ends in the right atrium. Lungs: Chronic volume loss in the left hemithorax with surgical clips near the hilum. The right lung is clear. Pleural spaces: Unremarkable. No pleural effusion. No pneumothorax. Heart/Mediastinum: Unremarkable. No cardiomegaly. Bones/joints: Unremarkable. XR/XR chest 1V portable [id number] IMPRESSION: 1. No acute findings. 2. Chronic left thoracotomy changes
[2023-12-05 20:19] LABS: Basophils # 0.1 10^3/uL (0.0-0.1); Basophils % 1.1 %; Eosinophils # 0.3 10^3/uL (0.0-0.8); Eosinophils % 5.2 %; Hematocrit 36.3 % (36-47); Lymphocytes # 1.5 10^3/uL (0.8-4.8); Lymphocytes % 28.7 %; Mean Corpuscular HGB Conc 31.4 g/dL (30-55); Mean Corpuscular Hemoglobin 27.8 pg (27-33); Mean Corpuscular Volume 88.5 fl (85-98); Mean Platelet Volume 10.2 fL (7.4-10.4); Monocytes # 0.5 10^3/uL (0.2-0.9); Monocytes % 9.7 %; Neutrophils # 2.95 10^3/uL (1.8-7.7); Neutrophils % 55.1 %; Nucleated Red Blood Cells % 0 %; Platelet Count 205 10^3/cmm (157-399); Red Cell Distribution Width 15.7 % (12.1-15.1); White Blood Count 5.36 10^3/uL (3.29-11.43)
[2023-12-05 20:37] LABS: Alanine Aminotransferase 46 U/L (0-33); Albumin Level 3.2 g/dL (3.5-5.2); Alkaline Phosphatase 124 U/L (35-105); Anion Gap 17.8 (5-19); Aspartate Amino Transferase 47 U/L (0-32); Blood Urea Nitrogen 39 mg/dL (6-20); Calcium 8.4 mg/dL (8.5-10.5); Carbon Dioxide 22 mmol/L (22-29); Chloride 102 mmol/L (98-107); Creatinine Clr Calc Pharmacy 13.0678; Globulin 3.5 g/dL (1.3-4.6); Glomerular Filtration Rate 10.7 mL/min (90-130); Glucose 378 mg/dL (65-115); Magnesium 1.9 mg/dL (1.7-2.3); Osmolality Calculated 307 mOsm/kg (285-295); Phosphorus 5.5 mg/dL (2.5-4.5); Potassium 5.8 mmol/L (3.5-5.1); Sodium 136 mmol/L (136-145); Total Bilirubin 0.2 mg/dL (0.15-1.2); Total Protein 6.7 g/dL (6.6-8.7)
[2023-12-05 20:41] LABS: Troponin(5th) Baseline 318 ng/L (0-10)
[2023-12-05 22:20] LABS: Troponin 5 2HR Delta -22.8 ABS# (0-10)
[2023-12-05 22:21] LABS: Troponin 5 2HR 295.2 ng/L (0-10)
[2023-12-05 23:13] VITALS: BP 205/121; PULSE 68; O2SAT 100
--- NOTE | 2023-12-05 23:13 | ED_ITS ---
HPI - Chest Pain 2 General: Chief Complaint: Chest Pain Stated Complaint: chest pressure sob Time Seen by Provider: 12/05/23 20:06 History of Present Illness: 38-year-old female comes in today for co mplaints of chest discomfort. Patient has a history of coronary artery disease, chronic kidney disease requiring dialysis, type 1 diabetes. Patient appears nontoxic. Patient appears no acute distress. Review of Systems 2 General: Reports: 10 or more systems reviewed and unremarkable except in HPI and below PFSH ED 2 PFSH: Medical History (Updated 12/05/23 @ 23:46 by SUZANNE Butt) Hyperlipidemia HTN (hypertension) Intractable nausea and vomiting Diabetic gastroparesis Acute cystitis with hematuria CKD (chronic kidney disease) stage 3, GFR 30-59 ml/min ERICA (acute kidney injury) CHF (congestive heart failure), NYHA class III Pulmonary hypertension CAD (coronary artery disease) Neurogenic bladder Acute kidney injury superimposed on chronic kidney disease Metabolic acidosis COVID-19 Tobacco dependence Drug abuse Anemia Community acquired pneumonia Acute hyperglycemia Esophagitis Complicated UTI (urinary tract infection) Transaminitis Long-term insulin use History of pancreatitis Celiac disease Recurrent UTI Non-alcoholic fatty liver disease Arnold-Chiari malformation Diabetic gastroparesis -continue Reglan Diabetic neuropathy associated with type 1 diabetes mellitus Headache, common migraine, intractable, with status migrainosus Cystitis Pleural effusion 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 Uncontrolled type 1 diabetes mellitus Lymphadenitis Ureterolithiasis Pyelonephritis PID (pelvic inflammatory disease) Anxiety Sepsis Respiratory failure Pancreatitis DKA (diabetic ketoacidoses) Migraine headache Chronic headache Surgical History History of lung surgery -s/p LLL lobectomy secondary to cavitary pneumonia (2017) History of endoscopy History of cholecystectomy Family History Grandfather Diabetes Other Heart disease Hypertension Social History Smoking and tobacco/nicotine status: never used tobacco/nicotine Second hand smoke exposure: Yes Alcohol intake: never Substance/Drug Use: current Household members: children Housing: House Marital status: Single Current occupational status: unemployed Physical Exam 2 Const: COMMON NORMALS: alert HENMT: COMMON NORMALS: normocephalic HEAD & SCALP: normocephalic Neck/C-Spine: COMMON NORMALS: full ROM Chest: OTHER: Chest wall tenderness anterior Resp: COMMON NORMALS: normal respiratory effort and clear to auscultation bilaterally AUSCULTATION: clear to auscultation bilaterally Cardio: COMMON NORMALS: regular rate and regular rhythm RATE: regular rate RHYTHM: regular rhythm GI: COMMON NORMALS: non-tender Back/Pelvis: COMMON NORMALS: thoracic and lumbar spine normal to inspection Extremity: COMMON NORMALS: no pedal edema Neuro: SENSORIUM/ORIENTATION: Yes alert Skin: COMMON NORMALS: turgor normal GENERAL SKIN EXAM: turgor normal Course 2 Vital Signs: Vital signs: Vital Signs Temperature 98.2 F 12/05/23 19:58 Pulse Rate 68 12/05/23 23:13 Respiratory Rate 18 12/05/23 23:24 Blood Pressure 205/121 12/05/23 23:23 Pulse Oximetry 98 12/05/23 23:24 Oxygen Delivery Me thod Room Air 12/05/23 19:58 MDM - Chest Pain Medical Decision Making 38-year-old female comes in today for complaints of chest pain. On exam patient appears nontoxic. Respirations are even lungs are clear to auscultation. Blood pressure is elevated in the 180s systolic. Patient does have chronic kidney disease requiring dialysis. Patient reports a recent stent placement 1 week ago. Differential diagnosis includes not limited to CHF, ACS, uncontrolled hypertension, anxiety, chest wall pain. Exam suggest chest wall pain. Chest x- ray was unremarkable. No changes were noted on the troponin. Patient potassium slightly elevated 5.8. No ST elevation was noted on EKG, regular sinus rhythm was noted, no acute changes were noted from prior exams. Patient was given 4 mg of morphine IM and 0.1 mg clonidine x 1. Patient was monitored with monitoring for pain control and blood pressure declined. Blood pressure came down to below 180 systolic. Patient was discharged home with recommendations to continue treatment plan as prescribed. Lab Data 12/05/23 20:08 12/05/23 20:08 Radiology Impressions Chest X-Ray 12/05/23 19:59 IMPRESSION: 1. No acute findings. 2. Chronic left thoracotomy changes Laboratory Results WBC 5.36 10^3/uL (3.29-11.43) 12/05/23 20:08 RBC 4.10 10^6/uL (3.85-5.65) 12/05/23 20:08 Hgb 11.40 g/dL (11.27-16.99) 12/05/23 20:08 Hct 36.3 % (36-47) 12/05/23 20:08 MCV 88.5 fl (85-98) 12/05/23 20:08 MCH 27.8 pg (27-33) 12/05/23 20:08 MCHC 31.4 g/dL (30-55) 12/05/23 20:08 RDW 15.7 % (12.1-15.1) H 12/05/23 20:08 Plt Count 205 10^3/cmm (157-399) 12/05/23 20:08 MPV 10.2 fL (7.4-10.4) 12/05/23 20:08 Neut % (Auto) 55.1 % 12/05/23 20:08 Lymph % (Auto) 28.7 % 12/05/23 20:08 [place] % (Auto) 9.7 % 12/05/23 20:08 Eos % (Auto) 5.2 % 12/05/23 20:08 Baso % (Auto) 1.1 % 12/05/23 20:08 Neut # (Auto) 2.95 10^3/uL (1.8-7.7) 12/05/23 20:08 Lymph # (Auto) 1.5 10^3/uL (0.8-4.8) 12/05/23 20:08 [place] # (Auto) 0.5 10^3/uL (0.2-0.9) 12/05/23 20:08 Eos # (Auto) 0.3 10^3/uL (0.0-0.8) 12/05/23 20:08 Baso # (Auto) 0.1 10^3/uL (0.0-0.1) 12/05/23 20:08 Nucleated RBC % (auto) 0 % 12/05/23 20:08 Nucleated RBCs # 0.0 /100WBC 12/05/23 20:08 Sodium 136 mmol/L (136-145) 12/05/23 20:08 Potassium 5.8 mmol/L (3.5-5.1) H 12/05/23 20:08 Chloride 102 mmol/L (98-107) 12/05/23 20:08 Carbon Dioxide 22 mmol/L (22-29) 12/05/23 20:08 Anion Gap 17.8 (5-19) 12/05/23 20:08 BUN 39 mg/dL (6-20) H 12/05/23 20:08 Creatinine 4.6 mg/dL (0.5-0.9) H 12/05/23 20:08 GFR Calculation 10.7 mL/min (90-130) L 12/05/23 20:08 Glucose 378 mg/dL (65-115) H 12/05/23 20:08 Calculated Osmolality 307 mOsm/kg (285-295) H 12/05/23 20:08 Calcium 8.4 mg/dL (8.5-10.5) L 12/05/23 20:08 Phosphorus 5.5 mg/dL (2.5-4.5) H 12/05/23 20:08 Magnesium 1.9 mg/dL (1.7-2.3) 12/05/23 20:08 Total Bilirubin 0.2 mg/dL (0.15-1.2) 12/05/23 20:08 AST 47 U/L (0-32) H 12/05/23 20:08 ALT 46 U/L (0-33) H 12/05/23 20:08 Alkaline Phosphatase 124 U/L (35-105) H 12/05/23 20:08 Troponin T Baseline 318 ng/L (0-10) H* 12/05/23 20:08 Troponin T 120 Minute 295.2 ng/L (0-10) H 12/05/23 21:50 Delta Troponin T -22.8 ABS# (0-10) L 12/05/23 21:50 Total Protein 6.7 g/dL (6.6-8.7) 12/05/23 20:08 Albumin 3.2 g/dL (3.5-5.2) L 12/05/23 20:08 Globulin 3.5 g/dL (1.3-4.6) 12/05/23 20:08 All radiology interpretation(s) finalized by discharge Discharge Plan Discharge Patient Disposition: Home Clinical Impression: Chest pain Qualifiers: Chest pain type: unspecified Qualified Code(s): R07.9 - Chest pain, unspecified Hypertension Qualifiers: Hypertension type: unspecified Qualified Code(s): I10 - Essential (primary) hypertension CKD (chronic kidney disease) Qualifiers: Chronic kidney disease stage: unspecified stage Qualified Code(s): N18.9 - Chronic kidney disease, unspecified Condition: Stable Prescriptions: No Action (DME) Dexcom G6 Thermodynamics Professor Misc See Rx Instructions .Route Qty: 1 0RF Rx Instructions: As directed (DME) Dexcom G6 Sensor Device See Rx Instructions .Route Qty: 3 0RF Rx Instructions: As directed (DME) Dexcom G6 Transmitter Device See Rx Instructions .Route Qty: 1 0RF Rx Instructions: As directed albuterol sulfate 90 mcg/actuation HFA aerosol inhaler 2 puff inhalation Q6H PRN (Reason: shortness of breath or wheezing) fluticasone furoate-vilanterol [Breo Ellipta] 100-25 mcg/dose Blister With Device 1 inh INHALATION DAILY PRN (Reason: Shortness Of Breath) nitroglycerin [Nitrostat] 0.4 mg Tablet, Sublingual 0.4 mg SUBLINGUAL Q5M PRN (Reason: Chest Pain) Rx Instructions: do not exceed 3 doses per episode aspirin 81 mg Tablet,Delayed Release (Dr/Ec) 81 mg PO DAILY Qty: 30 0RF sevelamer carbonate 800 mg Tablet 800 mg PO TID Qty: 90 0RF carvedilol 12.5 mg tablet 12.5 mg PO BID atorvastatin 40 mg tablet 40 mg PO BEDTIME clonidine HCl 0.1 mg tablet See Rx Instructions .ROUTE .COMPLEX Rx Instructions: TAKE 1 TABLET IF SYSTOLIC BLOOD PRESSURE IS GREATER THAN 160, REPEAT ONCE IF SYSTOLIC BLOOD PRESSURE IS STILL OVER 160 AFTER 1 HOUR. lisinopril 40 mg tablet 40 mg PO BEDTIME Brilinta 90 mg tablet 90 mg PO BID Qty: 60 0RF Discharge Orders: Discharge ED (Routine); Ordered 12/05/23 Ordered By: Brodie Siu Referrals: Elizabeth Dougherty FNP [Primary Care Provider] - Discharge Diet: Usual diet Discharge Activity: Increase activity as tolerated Patient Instructions: Chest Pain (ED) Activity Restrictions/Additional Instructions: Home and rest. Continue routine care. Follow-up with primary care in 1 week for recheck. Return to ED for new concerns or worsening symptoms. Follow-up with dialysis in the morning for treatment plan. Coding Level of Care Code ED Monitoring Coordinator for Reji Chandler
[2023-12-05 23:23] VITALS: BP 205/121
[2023-12-05] MEDS: cloNIDine 0.1 mg Tablet 0.100000000000000006 MG PO (23:23)
[2023-12-05 23:24] VITALS: RESP 18; O2SAT 98
[2023-12-05] MEDS: morphine 4 mg/mL SDV 1 mL IM (23:24)
[2023-12-05 23:30] VITALS: BP 208/152; PULSE 69; O2SAT 99
[2023-12-06] VITALS: BP 194/119; PULSE 66; O2SAT 100
[2023-12-06 00:30] VITALS: BP 192/116; PULSE 66; O2SAT 98
[2023-12-06] MEDS: hyDRALAzine 25 mg Tablet PO (00:51)
== END 2023-12-06 00:55 | disposition home or self-care (01) ==
PROVIDERS: Emergency Medicine; Emergency Provider Nurse Practitioner Family; PCP Nurse Practitioner Family
DX: R07.9 Chest pain, unspecified (principal); I13.0 Hypertensive heart and chronic kidney disease with heart failure and stage 1 through stage 4 chronic kidney disease, or unspecified chronic kidney disease; E10.22 Type 1 diabetes mellitus with diabetic chronic kidney disease; N18.30 Chronic kidney disease, stage 3 unspecified; I50.9 Heart failure, unspecified; I25.10 Atherosclerotic heart disease of native coronary artery without angina pectoris
CPT/HCPCS: 36415; 71045; 80053; 83735; 84100; 84484; 85025; 93005; 96372; 99285; J2270

== ENCOUNTER 2023-12-09 14:48 | Emergency (ER) | payer MEDICAID, SELFPAY ==
[2023-12-09] VITALS (12 sets, daily range): BP systolic 144–191; BP diastolic 85–106; PULSE 64–69; RESP 16–29; TEMP 36.9; O2SAT 93–95; BMI 24.0
--- NOTE | 2023-12-09 14:52 | XRR_ITS ---
PROCEDURE INFORMATION: Exam: XR Chest Exam date and time: 12/09/2023 3:05 PM Age: 38 years old Clinical indication: Pain; Angina pectoris; Additional info: Chest pain TECHNIQUE: Imaging protocol: Radiologic exam of the chest. Views: 1 view. COMPARISON: CR (CHEST, ) 12/05/2023 8:55 PM FINDINGS: Tubes, catheters and devices: Right central dialysis line terminates in the right atrium. Lungs: Unremarkable. No consolidation. Pleural spaces: Unremarkable. No pleural effusion. No pneumothorax. Heart/Mediastinum: Unremarkable. No cardiomegaly. Bones/joints: Unremarkable. XR/XR chest 1V portable [id number] IMPRESSION: No acute findings.
--- NOTE | 2023-12-09 14:53 | ECG_ITS ---
[facility] Test Date: 2023-12-09 Pat Name: Donita Aguilar Department: Room: Gender: Female Music Video Director: : 1985 Requested By: Dawna Nick Order Number: [id number] Salmeron MD: Riccardo Burch M.D. Measurements Intervals [place] Rate: 68 P: 61 [place]: 180 QRS: -4 QRSD: 109 T: 138 QT: 439 QTc: 469 Interpretive Statements SINUS RHYTHM POSSIBLE LEFT ATRIAL ENLARGEMENT [-0.1mV P-WAVE IN V1/V2] ST DEVIATION AND MODERATE T-WAVE ABNORMALITY, CONSIDER LATERAL ISCHEMIA [-0.1+ mV T-WAVE IN I/aVL/V5/V6] Compared to ECG 12/05/2023 19:51:13 T-wave abnormality now present Possible ischemia now present Left-axis deviation no longer present Myocardial infarct finding no longer present Electronically Signed On 12-09-2023 15:22:04 CDT by Riccardo Burch M.D. [id number]
--- NOTE | 2023-12-09 14:58 | W.ED.CHESTPA ---
Documented by User: Dawna Briceno MD 12/09/23 16:35 HPI - Chest Pain General: Chief Complaint: Chest Pain Stated Complaint: cp w/ dialysis Time Seen by Provider: 12/09/23 14:52 History of Present Illness: 38-year-old female with a history of end-stage renal disease on dialysis and coronary artery disease status post several stents who presents to the emergency room with chest pain from the dialysis clinic by ambulance. This happened about a week ago when she ended up having a non-STEMI and getting stents. She says the pain is similar. Nitro did not really help. No cough. No fevers. No altered mental status. No focal motor deficits. No abdominal pain. No nausea or vomiting. Review of Systems Narrative: Constitutional symptoms: Negative except as documented in HPI. Skin symptoms: Negative except as documented in HPI. Eye symptoms: Negative except as documented in HPI. ENMT symptoms: Negative except as documented in HPI. Respiratory symptoms: Negative except as documented in HPI. Cardiovascular symptoms: Negative except as documented in HPI. Gastrointestinal symptoms: Negative except as documented in HPI. Genitourinary symptoms: Negative except as documented in HPI. Musculoskeletal symptoms: Negative except as documented in HPI. Neurologic symptoms: Negative except as documented in HPI. Psychiatric symptoms: Negative except as documented in HPI. Endocrine symptoms: Negative except as documented in HPI. FORMERLY [facility], [facility] ED PFSH: Medical History (Updated 12/09/23 @ 19:25 by Ronny Ayala MD) Hyperlipidemia HTN (hypertension) Intractable nausea and vomiting Diabetic gastroparesis Acute cystitis with hematuria CKD (chronic kidney disease) stage 3, GFR 30-59 ml/min ERICA (acute kidney injury) CHF (congestive heart failure), NYHA class III Pulmonary hypertension CAD (coronary artery disease) Neurogenic bladder Acute kidney injury superimposed on chronic kidney disease Metabolic acidosis COVID-19 Tobacco dependence Drug abuse Anemia Community acquired pneumonia Acute hyperglycemia Esophagitis Complicated UTI (urinary tract infection) Transaminitis Long-term insulin use History of pancreatitis Celiac disease Recurrent UTI Non-alcoholic fatty liver disease Arnold-Chiari malformation Diabetic gastroparesis -continue Reglan Diabetic neuropathy associated with type 1 diabetes mellitus Headache, common migraine, intractable, with status migrainosus Cystitis Pleural effusion 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 Uncontrolled type 1 diabetes mellitus Lymphadenitis Ureterolithiasis Pyelonephritis PID (pelvic inflammatory disease) Anxiety Sepsis Respiratory failure Pancreatitis DKA (diabetic ketoacidoses) Migraine headache Chronic headache Surgical History History of lung surgery -s/p LLL lobectomy secondary to cavitary pneumonia (2017) History of endoscopy History of cholecystectomy Family History Grandfather Diabetes Other Heart disease Hypertension Social History Smoking and tobacco/nicotine status: never used tobacco/nicotine Second hand smoke exposure: Yes Alcohol intake: never Substance/Drug Use: current Household members: children Housing: House Marital status: Single Current occupational status: unemployed Physical Exam Narrative: EXAM NARRATIVE: General: Alert, no acute distress. Skin: Warm, dry. Head: Normocephalic, atraumatic. Neck: Supple, trachea midline. Eye: Extraocular movements are intact. Ears, nose, mouth and throat: mucosa moist. Cardiovascular: Regular, Normal peripheral perfusion. Respiratory: Lungs are clear to auscultation, respirations are non-labored, breath sounds are equal, Symmetrical chest wall expansion. Gastrointestinal: Soft, Nontender, Non distended, Normal bowel sounds. Musculoskeletal: Normal ROM, no deformity. Neurological: Alert and oriented, No focal neurological deficit observed. Psychiatric: Cooperative, appropriate mood & affect. Course Vital Signs: Vital signs: Vital Signs Temperature 98.4 F 12/09/23 14:52 Pulse Rate 67 12/09/23 18:10 Respiratory Rate 22 H 12/09/23 18:10 Blood Pressure 183/106 12/09/23 18:10 Pulse Oximetry 95 12/09/23 16:19 Oxygen Delivery Me thod Nasal Cannula 12/09/23 14:52 Oxygen Flow Rate 2 12/09/23 14:52 MDM - Chest Pain Medical Decision Making Differential diagnosis for patient with chest pain includes but is not limited to and based on the above HPI, review of systems and physical exam: Pneumonia. unstable angina. angina. Acute coronary syndrome / ME. Pulmonary embolism. Costochondritis / musculoskeletal. Pleurisy. Pericarditis. Esophageal spasm. Pancreatis. Cholecystitis. Workup: Lab work, chest X-ray and EKG ordered to evaluate, rule in and rule out above pathologies. Baseline EK. Rate 68. Normal sinus rhythm, nonspecific ST changes, no ectopy, normal MA & QRS intervals, This was reviewed and interpreted by myself the ER physician at 1513 Lab Data 12/09/23 16:35 12/09/23 16:35 Radiology Impressions Chest X-Ray 12/09/23 14:52 IMPRESSION: No acute findings. Laboratory Results WBC 6.28 10^3/uL (3.29-11.43) 12/09/23 16:35 RBC 4.13 10^6/uL (3.85-5.65) 12/09/23 16:35 Hgb 11.60 g/dL (11.27-16.99) 12/09/23 16:35 Hct 35.7 % (36-47) L 12/09/23 16:35 MCV 86.4 fl (85-98) 12/09/23 16:35 MCH 28.1 pg (27-33) 12/09/23 16:35 MCHC 32.5 g/dL (30-55) 12/09/23 16:35 RDW 15.3 % (12.1-15.1) H 12/09/23 16:35 Plt Count 167 10^3/cmm (157-399) 12/09/23 16:35 MPV 9.7 fL (7.4-10.4) 12/09/23 16:35 Neut % (Auto) 62.7 % 12/09/23 16:35 Lymph % (Auto) 22.6 % 12/09/23 16:35 Castro % (Auto) 8.1 % 12/09/23 16:35 Eos % (Auto) 5.3 % 12/09/23 16:35 Baso % (Auto) 1.1 % 12/09/23 16:35 Neut # (Auto) 3.94 10^3/uL (1.8-7.7) 12/09/23 16:35 Lymph # (Auto) 1.4 10^3/uL (0.8-4.8) 12/09/23 16:35 Castro # (Auto) 0.5 10^3/uL (0.2-0.9) 12/09/23 16:35 Eos # (Auto) 0.3 10^3/uL (0.0-0.8) 12/09/23 16:35 Baso # (Auto) 0.1 10^3/uL (0.0-0.1) 12/09/23 16:35 Nucleated RBC % (auto) 0 % 12/09/23 16:35 Nucleated RBCs # 0.0 /100WBC 12/09/23 16:35 Sodium 137 mmol/L (136-145) 12/09/23 16:35 Potassium 3.4 mmol/L (3.5-5.1) L 12/09/23 16:35 Chloride 100 mmol/L (98-107) 12/09/23 16:35 Carbon Dioxide 29 mmol/L (22-29) 12/09/23 16:35 Anion Gap 11.4 (5-19) 12/09/23 16:35 BUN 10 mg/dL (6-20) 12/09/23 16:35 Creatinine 1.8 mg/dL (0.5-0.9) H 12/09/23 16:35 GFR Calculation 31.7 mL/min (90-130) L 12/09/23 16:35 Glucose 249 mg/dL (65-115) H 12/09/23 16:35 Calculated Osmolality 291 mOsm/kg (285-295) 12/09/23 16:35 Calcium 8.4 mg/dL (8.5-10.5) L 12/09/23 16:35 Phosphorus 3.1 mg/dL (2.5-4.5) 12/09/23 16:35 Magnesium 1.8 mg/dL (1.7-2.3) 12/09/23 16:35 Total Bilirubin 0.3 mg/dL (0.15-1.2) 12/09/23 16:35 AST 65 U/L (0-32) H 12/09/23 16:35 ALT 118 U/L (0-33) H 12/09/23 16:35 Alkaline Phosphatase 133 U/L (35-105) H 12/09/23 16:35 Troponin T Baseline 315 ng/L (0-10) H* 12/09/23 16:35 Troponin T 120 Minute 315.6 ng/L (0-10) H 12/09/23 18:40 Delta Troponin T 0.6 ABS# (0-10) 12/09/23 18:40 Total Protein 7.0 g/dL (6.6-8.7) 12/09/23 16:35 Albumin 3.2 g/dL (3.5-5.2) L 12/09/23 16:35 Globulin 3.8 g/dL (1.3-4.6) 12/09/23 16:35 Lipase 19 U/L (13-60) 12/09/23 16:34 Discharge Plan Discharge Patient Disposition: Home Clinical Impression: Chest pain Condition: Stable Prescriptions: No Action (DME) Dexcom G6 Glass Blowing Instructor Misc See Rx Instructions .Route Qty: 1 0RF Rx Instructions: As directed (DME) Dexcom G6 Sensor Device See Rx Instructions .Route Qty: 3 0RF Rx Instructions: As directed (DME) Dexcom G6 Transmitter Device See Rx Instructions .Route Qty: 1 0RF Rx Instructions: As directed albuterol sulfate 90 mcg/actuation HFA aerosol inhaler 2 puff inhalation Q6H PRN (Reason: shortness of breath or wheezing) fluticasone furoate-vilanterol [Breo Ellipta] 100-25 mcg/dose Blister With Device 1 inh INHALATION DAILY PRN (Reason: Shortness Of Breath) nitroglycerin [Nitrostat] 0.4 mg Tablet, Sublingual 0.4 mg SUBLINGUAL Q5M PRN (Reason: Chest Pain) Rx Instructions: do not exceed 3 doses per episode aspirin 81 mg Tablet,Delayed Release (Dr/Ec) 81 mg PO DAILY Qty: 30 0RF sevelamer carbonate 800 mg Tablet 800 mg PO TID Qty: 90 0RF carvedilol 12.5 mg tablet 12.5 mg PO BID atorvastatin 40 mg tablet 40 mg PO BEDTIME clonidine HCl 0.1 mg tablet See Rx Instructions .ROUTE .COMPLEX Rx Instructions: TAKE 1 TABLET IF SYSTOLIC BLOOD PRESSURE IS GREATER THAN 160, REPEAT ONCE IF SYSTOLIC BLOOD PRESSURE IS STILL OVER 160 AFTER 1 HOUR. lisinopril 40 mg tablet 40 mg PO BEDTIME Brilinta 90 mg tablet 90 mg PO BID Qty: 60 0RF Discharge Orders: Discharge ED (Routine); Ordered 12/09/23 Ordered By: Ronny Ayala Referrals: Elizabeth Dougherty, TI[employer] REGR[employer]OVING MACHINE OPERATOR [Primary Care Provider] - Discharge Diet: Advance as tolerated Discharge Activity: Resume usual activity Patient Instructions: Chest Pain (ED) Coding Level of Care Code ED Triage Licensed Practical Nurse for Chg Fwd Documented by User: Ronny Ayala MD 12/09/23 19:26 HPI - Chest Pain General: Chief Complaint: Chest Pain Stated Complaint: cp w/ dialysis Time Seen by Provider: 12/09/23 14:52 PFSH ED PFSH: Medical History (Updated 12/09/23 @ 19:25 by Ronny Ayala MD) Hyperlipidemia HTN (hypertension) Intractable nausea and vomiting Diabetic gastroparesis Acute cystitis with hematuria CKD (chronic kidney disease) stage 3, GFR 30-59 ml/min ERICA (acute kidney injury) CHF (congestive heart failure), NYHA class III Pulmonary hypertension CAD (coronary artery disease) Neurogenic bladder Acute kidney injury superimposed on chronic kidney disease Metabolic acidosis COVID-19 Tobacco dependence Drug abuse Anemia Community acquired pneumonia Acute hyperglycemia Esophagitis Complicated UTI (urinary tract infection) Transaminitis Long-term insulin use History of pancreatitis Celiac disease Recurrent UTI Non-alcoholic fatty liver disease Arnold-Chiari malformation Diabetic gastroparesis -continue Reglan Diabetic neuropathy associated with type 1 diabetes mellitus Headache, common migraine, intractable, with status migrainosus Cystitis Pleural effusion 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 Uncontrolled type 1 diabetes mellitus Lymphadenitis Ureterolithiasis Pyelonephritis PID (pelvic inflammatory disease) Anxiety Sepsis Respiratory failure Pancreatitis DKA (diabetic ketoacidoses) Migraine headache Chronic headache Surgical History History of lung surgery -s/p LLL lobectomy secondary to cavitary pneumonia (2017) History of endoscopy History of cholecystectomy Family History Grandfather Diabetes Other Heart disease Hypertension Social History Smoking and tobacco/nicotine status: never used tobacco/nicotine Second hand smoke exposure: Yes Alcohol intake: never Substance/Drug Use: current Household members: children Housing: House Marital status: Single Current occupational status: unemployed Course Vital Signs: Vital signs: Vital Signs Temperature 98.4 F 12/09/23 14:52 Pulse Rate 67 12/09/23 18:10 Respiratory Rate 22 H 12/09/23 18:10 Blood Pressure 183/106 12/09/23 18:10 Pulse Oximetry 95 12/09/23 16:19 Oxygen Delivery Me thod Nasal Cannula 12/09/23 14:52 Oxygen Flow Rate 2 12/09/23 14:52 MDM - Chest Pain Medical Decision Making Differential diagnosis for patient with chest pain includes but is not limited to and based on the above HPI, review of systems and physical exam: Pneumonia. unstable angina. angina. Acute coronary syndrome / ME. Pulmonary embolism. Costochondritis / musculoskeletal. Pleurisy. Pericarditis. Esophageal spasm. Pancreatis. Cholecystitis. Workup: Lab work, chest X-ray and EKG ordered to evaluate, rule in and rule out above pathologies. Baseline EK. Rate 68. Normal sinus rhythm, nonspecific ST changes, no ectopy, normal MA & QRS intervals, This was reviewed and interpreted by myself the ER physician at 1513 took patient over from Dr. Omalley to her troponin was unchanged she is pain-free now she is follow-up with cardiology and 2 weeks she is stable for discharge at this time no signs of ACS she is return if worsening she understands agrees to plan. Lab Data 12/09/23 16:35 12/09/23 16:35 Radiology Impressions Chest X-Ray 12/09/23 14:52 IMPRESSION: No acute findings. Laboratory Results WBC 6.28 10^3/uL (3.29-11.43) 12/09/23 16:35 RBC 4.13 10^6/uL (3.85-5.65) 12/09/23 16:35 Hgb 11.60 g/dL (11.27-16.99) 12/09/23 16:35 Hct 35.7 % (36-47) L 12/09/23 16:35 MCV 86.4 fl (85-98) 12/09/23 16:35 MCH 28.1 pg (27-33) 12/09/23 16:35 MCHC 32.5 g/dL (30-55) 12/09/23 16:35 RDW 15.3 % (12.1-15.1) H 12/09/23 16:35 Plt Count 167 10^3/cmm (157-399) 12/09/23 16:35 MPV 9.7 fL (7.4-10.4) 12/09/23 16:35 Neut % (Auto) 62.7 % 12/09/23 16:35 Lymph % (Auto) 22.6 % 12/09/23 16:35 Castro % (Auto) 8.1 % 12/09/23 16:35 Eos % (Auto) 5.3 % 12/09/23 16:35 Baso % (Auto) 1.1 % 12/09/23 16:35 Neut # (Auto) 3.94 10^3/uL (1.8-7.7) 12/09/23 16:35 Lymph # (Auto) 1.4 10^3/uL (0.8-4.8) 12/09/23 16:35 Castro # (Auto) 0.5 10^3/uL (0.2-0.9) 12/09/23 16:35 Eos # (Auto) 0.3 10^3/uL (0.0-0.8) 12/09/23 16:35 Baso # (Auto) 0.1 10^3/uL (0.0-0.1) 12/09/23 16:35 Nucleated RBC % (auto) 0 % 12/09/23 16:35 Nucleated RBCs # 0.0 /100WBC 12/09/23 16:35 Sodium 137 mmol/L (136-145) 12/09/23 16:35 Potassium 3.4 mmol/L (3.5-5.1) L 12/09/23 16:35 Chloride 100 mmol/L (98-107) 12/09/23 16:35 Carbon Dioxide 29 mmol/L (22-29) 12/09/23 16:35 Anion Gap 11.4 (5-19) 12/09/23 16:35 BUN 10 mg/dL (6-20) 12/09/23 16:35 Creatinine 1.8 mg/dL (0.5-0.9) H 12/09/23 16:35 GFR Calculation 31.7 mL/min (90-130) L 12/09/23 16:35 Glucose 249 mg/dL (65-115) H 12/09/23 16:35 Calculated Osmolality 291 mOsm/kg (285-295) 12/09/23 16:35 Calcium 8.4 mg/dL (8.5-10.5) L 12/09/23 16:35 Phosphorus 3.1 mg/dL (2.5-4.5) 12/09/23 16:35 Magnesium 1.8 mg/dL (1.7-2.3) 12/09/23 16:35 Total Bilirubin 0.3 mg/dL (0.15-1.2) 12/09/23 16:35 AST 65 U/L (0-32) H 12/09/23 16:35 ALT 118 U/L (0-33) H 12/09/23 16:35 Alkaline Phosphatase 133 U/L (35-105) H 12/09/23 16:35 Troponin T Baseline 315 ng/L (0-10) H* 12/09/23 16:35 Troponin T 120 Minute 315.6 ng/L (0-10) H 12/09/23 18:40 Delta Troponin T 0.6 ABS# (0-10) 12/09/23 18:40 Total Protein 7.0 g/dL (6.6-8.7) 12/09/23 16:35 Albumin 3.2 g/dL (3.5-5.2) L 12/09/23 16:35 Globulin 3.8 g/dL (1.3-4.6) 12/09/23 16:35 Lipase 19 U/L (13-60) 12/09/23 16:34 All radiology interpretation(s) finalized by discharge Discharge Plan Discharge Patient Disposition: Home Clinical Impression: Chest pain Condition: Stable Prescriptions: No Action (DME) Dexcom G6 Glass Blowing Instructor Misc See Rx Instructions .Route Qty: 1 0RF Rx Instructions: As directed (DME) Dexcom G6 Sensor Device See Rx Instructions .Route Qty: 3 0RF Rx Instructions: As directed (DME) Dexcom G6 Transmitter Device See Rx Instructions .Route Qty: 1 0RF Rx Instructions: As directed albuterol sulfate 90 mcg/actuation HFA aerosol inhaler 2 puff inhalation Q6H PRN (Reason: shortness of breath or wheezing) fluticasone furoate-vilanterol [Breo Ellipta] 100-25 mcg/dose Blister With Device 1 inh INHALATION DAILY PRN (Reason: Shortness Of Breath) nitroglycerin [Nitrostat] 0.4 mg Tablet, Sublingual 0.4 mg SUBLINGUAL Q5M PRN (Reason: Chest Pain) Rx Instructions: do not exceed 3 doses per episode aspirin 81 mg Tablet,Delayed Release (Dr/Ec) 81 mg PO DAILY Qty: 30 0RF sevelamer carbonate 800 mg Tablet 800 mg PO TID Qty: 90 0RF carvedilol 12.5 mg tablet 12.5 mg PO BID atorvastatin 40 mg tablet 40 mg PO BEDTIME clonidine HCl 0.1 mg tablet See Rx Instructions .ROUTE .COMPLEX Rx Instructions: TAKE 1 TABLET IF SYSTOLIC BLOOD PRESSURE IS GREATER THAN 160, REPEAT ONCE IF SYSTOLIC BLOOD PRESSURE IS STILL OVER 160 AFTER 1 HOUR. lisinopril 40 mg tablet 40 mg PO BEDTIME Brilinta 90 mg tablet 90 mg PO BID Qty: 60 0RF Discharge Orders: Discharge ED (Routine); Ordered 12/09/23 Ordered By: Ronny Ayala Referrals: Elizabeth Dougherty FNP [Primary Care Provider] - Discharge Diet: Advance as tolerated Discharge Activity: Resume usual activity Patient Instructions: Chest Pain (ED) Coding Level of Care Code ED Triage Licensed Practical Nurse for Reji Chandler
[2023-12-09] MEDS: morphine 4 mg/mL SDV 1 mL IVP ×2 (16:19→19:56)
[2023-12-09 16:47] LABS: Basophils # 0.1 10^3/uL (0.0-0.1); Basophils % 1.1 %; Eosinophils # 0.3 10^3/uL (0.0-0.8); Eosinophils % 5.3 %; Hematocrit 35.7 % (36-47); Lymphocytes # 1.4 10^3/uL (0.8-4.8); Lymphocytes % 22.6 %; Mean Corpuscular HGB Conc 32.5 g/dL (30-55); Mean Corpuscular Hemoglobin 28.1 pg (27-33); Mean Corpuscular Volume 86.4 fl (85-98); Mean Platelet Volume 9.7 fL (7.4-10.4); Monocytes # 0.5 10^3/uL (0.2-0.9); Monocytes % 8.1 %; Neutrophils # 3.94 10^3/uL (1.8-7.7); Neutrophils % 62.7 %; Nucleated Red Blood Cells % 0 %; Platelet Count 167 10^3/cmm (157-399); Red Blood Count 4.13 10^6/uL (3.85-5.65); Red Cell Distribution Width 15.3 % (12.1-15.1); White Blood Count 6.28 10^3/uL (3.29-11.43)
--- NOTE | 2023-12-09 16:53 | ECG_ITS ---
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 Measurements Intervals [place] Rate: 67 P: 55 ND: 187 QRS: -4 QRSD: 105 T: -63 QT: 443 QTc: 471 Interpretive Statements SINUS RHYTHM POSSIBLE LEFT ATRIAL ENLARGEMENT [-0.1mV P-WAVE IN V1/V2] POSSIBLE INFERIOR MYOCARDIAL INFARCTION , OF INDETERMINATE AGE [30 ms Q WAVE IN II/aVF] MODERATE T-WAVE ABNORMALITY, CONSIDER LATERAL ISCHEMIA [-0.1+ mV T-WAVE IN I/aVL/V5/V6] WARNING: DATA QUALITY MAY AFFECT INTERPRETATION Compared to ECG 12/05/2023 19:51:13 T-wave abnormality now present Possible ischemia now present Left-axis deviation no longer present Myocardial infarct finding still present Electronically Signed On 12-13-2023 13:45:22 CDT by Travis Gallegos M.D. [id number]
[2023-12-09 17:13] LABS: Troponin(5th) Baseline 315 ng/L (0-10)
[2023-12-09 17:14] LABS: Alanine Aminotransferase 118 U/L (0-33); Albumin Level 3.2 g/dL (3.5-5.2); Alkaline Phosphatase 133 U/L (35-105); Anion Gap 11.4 (5-19); Aspartate Amino Transferase 65 U/L (0-32); Blood Urea Nitrogen 10 mg/dL (6-20); Calcium 8.4 mg/dL (8.5-10.5); Carbon Dioxide 29 mmol/L (22-29); Chloride 100 mmol/L (98-107); Creatinine Clr Calc Pharmacy 33.5181; Globulin 3.8 g/dL (1.3-4.6); Glomerular Filtration Rate 31.7 mL/min (90-130); Glucose 249 mg/dL (65-115); Magnesium 1.8 mg/dL (1.7-2.3); Osmolality Calculated 291 mOsm/kg (285-295); Phosphorus 3.1 mg/dL (2.5-4.5); Potassium 3.4 mmol/L (3.5-5.1); Sodium 137 mmol/L (136-145); Total Bilirubin 0.3 mg/dL (0.15-1.2)
[2023-12-09 17:58] LABS: Lipase 19 U/L (13-60)
[2023-12-09 19:14] LABS: Troponin 5 2HR Delta 0.6 ABS# (0-10)
[2023-12-09 19:19] LABS: Troponin 5 2HR 315.6 ng/L (0-10)
== END 2023-12-09 20:03 | disposition home or self-care (01) ==
PROVIDERS: Emergency Medicine; Emergency Provider Emergency Medicine; PCP Nurse Practitioner Family
DX: R07.9 Chest pain, unspecified (principal); Z79.82 Long term (current) use of aspirin; Z77.22 Contact with and (suspected) exposure to environmental tobacco smoke (acute) (chronic); I13.0 Hypertensive heart and chronic kidney disease with heart failure and stage 1 through stage 4 chronic kidney disease, or unspecified chronic kidney disease; E10.22 Type 1 diabetes mellitus with diabetic chronic kidney disease; N18.30 Chronic kidney disease, stage 3 unspecified; I50.9 Heart failure, unspecified; E78.5 Hyperlipidemia, unspecified; I25.10 Atherosclerotic heart disease of native coronary artery without angina pectoris
CPT/HCPCS: 36415; 71045; 80053; 83690; 83735; 84100; 84484; 85025; 93005; 96374; 96375; 99285; J2270

== ENCOUNTER 2023-12-13 13:33 | Emergency (ER) | payer MEDICAID, SELFPAY ==
[2023-12-13 13:34] VITALS: BP 109/68; PULSE 60; RESP 16; TEMP 36.8; O2SAT 97; BMI 24.0
[2023-12-13 13:39] VITALS: BP 109/69; PULSE 63; O2SAT 96
--- NOTE | 2023-12-13 14:20 | ECG_ITS ---
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 Measurements Intervals [place] Rate: 59 P: 1 CO: 165 QRS: -12 QRSD: 110 T: 141 QT: 470 QTc: 466 Interpretive Statements SINUS BRADYCARDIA MODERATE T-WAVE ABNORMALITY, CONSIDER LATERAL ISCHEMIA [-0.1+ mV T-WAVE IN I/aVL/V5/V6] Compared to ECG 12/09/2023 15:09:23 Sinus rhythm no longer present T-wave abnormality still present Possible ischemia still present Electronically Signed On 12-14-2023 8:08:57 CDT by Travis Gallegos M.D. [id number] f
--- NOTE | 2023-12-13 14:20 | XR_ITS ---
WS: [id number] Exam: XR chest 1V portable [id number] Date/Time of Exam: 12/13/2023 2:20 PM Reason For Exam: chest pain The lungs are bilaterally clear and fully inflated. Small LEFT basal pleural effusion. Plaque atelect asis in the LEFT base. Cardiomediastinal silhouette is unremarkable for technique. A double lumen rig ht-sided central line is noted ending at the cavoatrial junction. Bony structures are unremarkable. S igns of coronary artery stenting. XR/XR chest 1V portable [id number] IMPRESSION: 1. Small LEFT basal pleural effusion and plaque atelectasis in the LEFT base. 2. No acute infiltrate or other significant finding.
--- NOTE | 2023-12-13 14:24 | W.ED.CHESTPA ---
HPI - Chest Pain General: Chief Complaint: Chest Pain Stated Complaint: cp Time Seen by Provider: 12/13/23 13:55 History of Present Illness: 38-year-old presents by EMS chief complaint of having an episode of chest pain while at dialysis patient reports she was in the last portion of her dialysis when she developed midsternal chest pain radiation to the back patient endorses a prior history of cardiac issues including prior history of heart attack with multiple stents placed. Per the patient's medical record she has recently been seen in our facility roughly a week ago for like matters patient was provided aspirin by EMS and 2 nitroglycerin prior to arrival for this patient does still endorse some moderate midsternal chest discomfort she does not endorse any palpitations or shortness of breath she did report some palpitations during the initial incident patient reports no recent medication changes or any other associated symptoms. Associated symptoms: Reports palpitations; Deny abdominal pain, dyspnea, fever(s), nausea or vomiting Review of Systems General: Reports: 10 or more systems reviewed and unremarkable except in HPI and below Const: Denies: fever(s), chills, fatigue or malaise Eyes: Denies: change in vision or blurry vision ENMT: Denies: throat pain, uvular edema, enlarged tonsils or odynophagia Card: Reports: chest pain and palpitations Resp: Denies: dyspnea or productive cough GI: Denies: abdominal pain, nausea or vomiting : Denies: flank pain Musc: Denies: extremity pain or extremity swelling Skin/Breast: Denies: rash or pruritus Neuro: Denies: headache(s) Psych: Denies: anxiety or depression Ramiro/Lymph: Denies: easy bleeding All/Imm: Denies: urticaria, throat swelling or facial swelling PFSH ED PFSH: Medical History Hyperlipidemia HTN (hypertension) Intractable nausea and vomiting Diabetic gastroparesis Acute cystitis with hematuria CKD (chronic kidney disease) stage 3, GFR 30-59 ml/min ERICA (acute kidney injury) CHF (congestive heart failure), NYHA class III Pulmonary hypertension CAD (coronary artery disease) Neurogenic bladder Acute kidney injury superimposed on chronic kidney disease Metabolic acidosis COVID-19 Tobacco dependence Drug abuse Anemia Community acquired pneumonia Acute hyperglycemia Esophagitis Complicated UTI (urinary tract infection) Transaminitis Long-term insulin use History of pancreatitis Celiac disease Recurrent UTI Non-alcoholic fatty liver disease Arnold-Chiari malformation Diabetic gastroparesis -continue Reglan Diabetic neuropathy associated with type 1 diabetes mellitus Headache, common migraine, intractable, with status migrainosus Cystitis Pleural effusion 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 Uncontrolled type 1 diabetes mellitus Lymphadenitis Ureterolithiasis Pyelonephritis PID (pelvic inflammatory disease) Anxiety Sepsis Respiratory failure Pancreatitis DKA (diabetic ketoacidoses) Migraine headache Chronic headache Surgical History History of lung surgery -s/p LLL lobectomy secondary to cavitary pneumonia (2017) History of endoscopy History of cholecystectomy Family History Grandfather Diabetes Other Heart disease Hypertension Social History Smoking and tobacco/nicotine status: never used tobacco/nicotine Second hand smoke exposure: Yes Alcohol intake: never Substance/Drug Use: current Household members: children Housing: House Marital status: Single Current occupational status: unemployed Physical Exam Narrative: EXAM NARRATIVE: Patient appears in no obvious acute distress she does appear to be slightly anxious otherwise unremarkable Const: COMMON NORMALS: no acute distress, patient oriented x3 and healthy appearing HENMT: COMMON NORMALS: normocephalic and atraumatic HEAD & SCALP: normocephalic and atraumatic THROAT: no uvular edema Eye: COMMON NORMALS: Equal, round and reactive pupils present and EOMs intact bilaterally PUPIL: Yes Equal, round and reactive pupils present Neck/C-Spine: COMMON NORMALS: full ROM, supple and no JVD Lymph: LYMPHATIC: no lymphadenopathy noted Chest: COMMONS NORMALS: normal inspection of the chest and normal palpation of entire chest wall Resp: COMMON NORMALS: normal respiratory effort, No retractions and clear to auscultation bilaterally EFFORT & INSPECTION: Yes able to speak in complete sentences and Yes symmetric chest movement AUSCULTATION: clear to auscultation bilaterally Cardio: COMMON NORMALS: no JVD, regular rate and regular rhythm RATE: regular rate RHYTHM: regular rhythm GI: COMMON NORMALS: Normal to inspection, nondistended, normoactive bowel sounds present, Soft to palpation and non-tender INSPECTION: Yes normal to inspection PALPATION: Yes Soft to palpation : COMMON NORMALS: Yes no CVA tenderness BLADDER/KIDNEY EXAM: Yes no CVA tenderness Back/Pelvis: COMMON NORMALS: no CVA tenderness Extremity: COMMON NORMALS: normal to inspection and full ROM Neuro: COMMON NORMALS: patient oriented x3, CN's II-XII intact bilaterally, moves all extremities and no focal motor deficits Psych: COMMON NORMALS: mental status grossly normal, Normal thought process present, cooperative and normal affect THOUGHT PROCESS: Normal thought process present Skin: COMMON NORMALS: no rashes or lesions noted GENERAL SKIN EXAM: no rashes or lesions noted Course Vital Signs: Vital signs: Vital Signs Temperature 98.3 F 12/13/23 13:34 Pulse Rate 57 L 12/13/23 17:26 Respiratory Rate 16 12/13/23 13:34 Blood Pressure 129/68 12/13/23 17:26 Pulse Oximetry 95 12/13/23 17:26 Oxygen Delivery Me thod Room Air 12/13/23 13:34 MDM - Chest Pain Medical Decision Making Due to patient's symptoms and condition IV was established lab work imaging obtained EKG look unremarkable we will continue to follow with cardiac troponins and BNP patient appears in stable condition at this time. Patient is troponin appears to be chronically elevated the first 1 was around 300 the second 1 also appearing the same patient currently does not report any current chest discomfort or pain based upon her symptoms and presenting condition I do believe the patient may be having some stable angina I did advise that she further follow-up with her creative technologist next 2 to 3 days for further investigation and management of this in which to return the interim if any of her symptoms persist or worse. Lab Data 12/13/23 14:37 12/13/23 14:37 Radiology Impressions Chest X-Ray 12/13/23 14:20 IMPRESSION: 1. Small LEFT basal pleural effusion and plaque atelectasis in the LEFT base. 2. No acute infiltrate or other significant finding. Laboratory Results WBC 6.69 10^3/uL (3.29-11.43) 12/13/23 14:37 RBC 3.83 10^6/uL (3.85-5.65) L 12/13/23 14:37 Hgb 10.70 g/dL (11.27-16.99) L 12/13/23 14:37 Hct 33.3 % (36-47) L 12/13/23 14:37 MCV 86.9 fl (85-98) 12/13/23 14:37 MCH 27.9 pg (27-33) 12/13/23 14:37 MCHC 32.1 g/dL (30-55) 12/13/23 14:37 RDW 15.4 % (12.1-15.1) H 12/13/23 14:37 Plt Count 145 10^3/cmm (157-399) L 12/13/23 14:37 MPV 10.8 fL (7.4-10.4) H 12/13/23 14:37 Neut % (Auto) 69.5 % 12/13/23 14:37 Lymph % (Auto) 17.3 % 12/13/23 14:37 Mcclain % (Auto) 7.9 % 12/13/23 14:37 Eos % (Auto) 4.6 % 12/13/23 14:37 Baso % (Auto) 0.6 % 12/13/23 14:37 Neut # (Auto) 4.64 10^3/uL (1.8-7.7) 12/13/23 14:37 Lymph # (Auto) 1.2 10^3/uL (0.8-4.8) 12/13/23 14:37 Mcclain # (Auto) 0.5 10^3/uL (0.2-0.9) 12/13/23 14:37 Eos # (Auto) 0.3 10^3/uL (0.0-0.8) 12/13/23 14:37 Baso # (Auto) 0.0 10^3/uL (0.0-0.1) 12/13/23 14:37 Nucleated RBC % (auto) 0 % 12/13/23 14:37 Nucleated RBCs # 0.0 /100WBC 12/13/23 14:37 PT 13.80 SECONDS (12.1-14.9) 12/13/23 14:37 INR 1.03 (0.8-1.2) 12/13/23 14:37 APTT 30.7 SECONDS (23.9-36.7) 12/13/23 14:37 Sodium 136 mmol/L (136-145) 12/13/23 14:37 Potassium 3.1 mmol/L (3.5-5.1) L 12/13/23 14:37 Chloride 97 mmol/L (98-107) L 12/13/23 14:37 Carbon Dioxide 29 mmol/L (22-29) 12/13/23 14:37 Anion Gap 13.1 (5-19) 12/13/23 14:37 BUN 15 mg/dL (6-20) 12/13/23 14:37 Creatinine 2.2 mg/dL (0.5-0.9) H 12/13/23 14:37 GFR Calculation 25.1 mL/min (90-130) L 12/13/23 14:37 Glucose 313 mg/dL (65-115) H 12/13/23 14:37 Calculated Osmolality 295 mOsm/kg (285-295) 12/13/23 14:37 Calcium 8.3 mg/dL (8.5-10.5) L 12/13/23 14:37 Total Bilirubin 0.3 mg/dL (0.15-1.2) 12/13/23 14:37 AST 30 U/L (0-32) 12/13/23 14:37 ALT 74 U/L (0-33) H 12/13/23 14:37 Alkaline Phosphatase 139 U/L (35-105) H 12/13/23 14:37 Troponin T Baseline 319 ng/L (0-10) H* 12/13/23 14:37 Troponin T 120 Minute 308.3 ng/L (0-10) H 12/13/23 16:26 Delta Troponin T -10.7 ABS# (0-10) L 12/13/23 16:26 Total Protein 6.6 g/dL (6.6-8.7) 12/13/23 14:37 Albumin 3.3 g/dL (3.5-5.2) L 12/13/23 14:37 Globulin 3.3 g/dL (1.3-4.6) 12/13/23 14:37 All radiology interpretation(s) finalized by discharge Discharge Plan Discharge Patient Disposition: Home Clinical Impression: Chest pain, Dialysis patient, Chronic stable angina Condition: Stable Prescriptions: No Action (DME) Dexcom G6 Cordwood Cutter Helper Misc See Rx Instructions .Route Qty: 1 0RF Rx Instructions: As directed (DME) Dexcom G6 Sensor Device See Rx Instructions .Route Qty: 3 0RF Rx Instructions: As directed (DME) Dexcom G6 Transmitter Device See Rx Instructions .Route Qty: 1 0RF Rx Instructions: As directed albuterol sulfate 90 mcg/actuation HFA aerosol inhaler 2 puff inhalation Q6H PRN (Reason: shortness of breath or wheezing) fluticasone furoate-vilanterol [Breo Ellipta] 100-25 mcg/dose Blister With Device 1 inh INHALATION DAILY PRN (Reason: Shortness Of Breath) nitroglycerin [Nitrostat] 0.4 mg Tablet, Sublingual 0.4 mg SUBLINGUAL Q5M PRN (Reason: Chest Pain) Rx Instructions: do not exceed 3 doses per episode aspirin 81 mg Tablet,Delayed Release (Dr/Ec) 81 mg PO DAILY Qty: 30 0RF sevelamer carbonate 800 mg Tablet 800 mg PO TID Qty: 90 0RF carvedilol 12.5 mg tablet 12.5 mg PO BID atorvastatin 40 mg tablet 40 mg PO BEDTIME clonidine HCl 0.1 mg tablet See Rx Instructions .ROUTE .COMPLEX Rx Instructions: TAKE 1 TABLET IF SYSTOLIC BLOOD PRESSURE IS GREATER THAN 160, REPEAT ONCE IF SYSTOLIC BLOOD PRESSURE IS STILL OVER 160 AFTER 1 HOUR. lisinopril 40 mg tablet 40 mg PO BEDTIME Brilinta 90 mg tablet 90 mg PO BID Qty: 60 0RF Discharge Orders: Discharge ED (Routine); Ordered 12/13/23 Ordered By: Hector Irby Referrals: Elizabeth Dougherty FNP [Primary Care Provider] - 1-3 days Discharge Diet: Cardiac Patient Instructions: Angina, Chest Pain (ED) Activity Restrictions/Additional Instructions: Please further follow-up with your creative technologist in the next couple of days your chronically elevated troponin appears to be unremarkable and your 2 sets you do appear to have a condition called stable angina that most likely gets invoked during dialysis you are advised to continue nitroglycerin prescription is provided by your creative technologist to further follow-up for further evaluation and management please return the interim if any of your symptoms persist or worse in the meanwhile. Coding Level of Care Code ED Mobile Marketing Specialist for Reji Chandler
[2023-12-13 14:45] LABS: Basophils % 0.6 %; Eosinophils # 0.3 10^3/uL (0.0-0.8); Eosinophils % 4.6 %; Hematocrit 33.3 % (36-47); Lymphocytes # 1.2 10^3/uL (0.8-4.8); Lymphocytes % 17.3 %; Mean Corpuscular HGB Conc 32.1 g/dL (30-55); Mean Corpuscular Hemoglobin 27.9 pg (27-33); Mean Corpuscular Volume 86.9 fl (85-98); Mean Platelet Volume 10.8 fL (7.4-10.4); Monocytes # 0.5 10^3/uL (0.2-0.9); Monocytes % 7.9 %; Neutrophils # 4.64 10^3/uL (1.8-7.7); Neutrophils % 69.5 %; Nucleated Red Blood Cells % 0 %; Platelet Count 145 10^3/cmm (157-399); Red Blood Count 3.83 10^6/uL (3.85-5.65); Red Cell Distribution Width 15.4 % (12.1-15.1); White Blood Count 6.69 10^3/uL (3.29-11.43)
[2023-12-13 15:04] LABS: INR 1.03 (0.8-1.2)
[2023-12-13 15:05] LABS: Partial Thromboplastin Time 30.7 SECONDS (23.9-36.7)
[2023-12-13 15:20] LABS: Alanine Aminotransferase 74 U/L (0-33); Albumin Level 3.3 g/dL (3.5-5.2); Alkaline Phosphatase 139 U/L (35-105); Anion Gap 13.1 (5-19); Aspartate Amino Transferase 30 U/L (0-32); Blood Urea Nitrogen 15 mg/dL (6-20); Calcium 8.3 mg/dL (8.5-10.5); Carbon Dioxide 29 mmol/L (22-29); Chloride 97 mmol/L (98-107); Creatinine Clr Calc Pharmacy 27.4239; Globulin 3.3 g/dL (1.3-4.6); Glomerular Filtration Rate 25.1 mL/min (90-130); Glucose 313 mg/dL (65-115); Osmolality Calculated 295 mOsm/kg (285-295); Potassium 3.1 mmol/L (3.5-5.1); Sodium 136 mmol/L (136-145); Total Bilirubin 0.3 mg/dL (0.15-1.2); Total Protein 6.6 g/dL (6.6-8.7)
[2023-12-13 16:00] VITALS: BP 175/99; PULSE 62; O2SAT 99
[2023-12-13 16:00] LABS: Troponin(5th) Baseline 319 ng/L (0-10)
--- NOTE | 2023-12-13 16:20 | ECG_ITS ---
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 Measurements Intervals [place] Rate: 60 P: 61 NV: 192 QRS: -2 QRSD: 114 T: 37 QT: 462 QTc: 463 Interpretive Statements SINUS RHYTHM POSSIBLE LEFT ATRIAL ENLARGEMENT [-0.1mV P-WAVE IN V1/V2] MODERATE INTRAVENTRICULAR CONDUCTION DELAY [110+ ms QRS DURATION] NONSPECIFIC T-WAVE ABNORMALITY Compared to ECG 12/13/2023 13:31:49 Intraventricular conduction delay now present Sinus bradycardia no longer present T-wave abnormality still present Electronically Signed On 12-14-2023 8:11:13 CDT by Travis Gallegos M.D. [email or web address]
[2023-12-13 17:05] VITALS: BP 183/95; PULSE 61; O2SAT 99
[2023-12-13] MEDS: nitroglycerin 0.4 mg sublingual Tablet 0.400000000000000022 MG SUBLINGUAL (17:10)
[2023-12-13 17:26] VITALS: BP 129/68; PULSE 57; O2SAT 95
[2023-12-13 17:28] LABS: Troponin 5 2HR 308.3 ng/L (0-10); Troponin 5 2HR Delta -10.7 ABS# (0-10)
[2023-12-13 18:28] VITALS: BP 129/68; PULSE 57; O2SAT 95
== END 2023-12-13 19:44 | disposition home or self-care (01) ==
PROVIDERS: Emergency Provider Emergency Medicine; PCP Nurse Practitioner Family
DX: R07.9 Chest pain, unspecified (principal); Z99.2 Dependence on renal dialysis; Z79.82 Long term (current) use of aspirin; Z77.22 Contact with and (suspected) exposure to environmental tobacco smoke (acute) (chronic); E78.5 Hyperlipidemia, unspecified; I13.0 Hypertensive heart and chronic kidney disease with heart failure and stage 1 through stage 4 chronic kidney disease, or unspecified chronic kidney disease; E10.22 Type 1 diabetes mellitus with diabetic chronic kidney disease; N18.30 Chronic kidney disease, stage 3 unspecified; I50.9 Heart failure, unspecified; I25.118 Atherosclerotic heart disease of native coronary artery with other forms of angina pectoris
CPT/HCPCS: 36415; 71045; 80053; 84484; 85025; 85610; 85730; 93005; 99285

== ENCOUNTER 2023-12-20 12:00 | Emergency (ER) | payer MEDICAID, SELFPAY ==
[2023-12-20 12:03] VITALS: BP 197/116; PULSE 80; RESP 16; TEMP 36.6; O2SAT 99; BMI 25.4
--- NOTE | 2023-12-20 12:04 | XR_ITS ---
WS: [id number] Exam: XR chest 1V portable [id number] Date/Time of Exam: 12/20/2023 12:04 PM Reason For Exam: Chest pain Comparison 12/13/2023. Small infiltrate in the RIGHT lower lobe. Remaining lung torres are clear. Trace LEFT basal pleural e ffusion. Heart size is normal for technique. A double-lumen right-sided central line noted probably e nding at the cavoatrial junction. The mediastinum is normal in contour. Signs of coronary artery sten ting. Signs of previous left-sided thoracotomy. XR/XR chest 1V portable [id number] IMPRESSION: 1. Small RIGHT basal infiltrate. Developing pneumonia is not excluded. 2. Trace LEFT basal pleural effusion.
--- NOTE | 2023-12-20 12:06 | ECG_ITS ---
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 Measurements Intervals [place] Rate: 69 P: 66 OR: 181 QRS: -2 QRSD: 105 T: 40 QT: 423 QTc: 455 Interpretive Statements SINUS RHYTHM POSSIBLE LEFT ATRIAL ENLARGEMENT [-0.1mV P-WAVE IN V1/V2] NONSPECIFIC ST & T-WAVE ABNORMALITY Compared to ECG 12/13/2023 16:10:54 Intraventricular conduction delay no longer present T-wave abnormality still present Electronically Signed On 12-20-2023 20:41:32 CDT by Gilberto Eugene M.D. [id number]
--- NOTE | 2023-12-20 12:12 | ED_ITS ---
HPI - Chest Pain 2 General: Chief Complaint: Chest Pain Stated Complaint: cp Time Seen by Provider: 12/20/23 12:04 History of Present Illness: 38-year-old female with history of end-s tage renal disease on dialysis, hypertension, diabetes, coronary artery disease with recent stent placement hyperlipidemia and anxiety who presents to the emergency room by ambulance from dialysis clinic by ambulance for the fifth time this month. At the beginning of the month she had a non-STEMI and had stents placed. Today she developed chest pain urinalysis. She complains of a central chest pain that goes into her left arm. Her blood pressure was quite elevated at dialysis. She received a couple of nitros from the dialysis clinic but did not seem to help her pressure or her pain. No cough. No fever. No altered mental status. No abdominal pain. No vomiting. Review of Systems 2 Narrative: Constitutional symptoms: Negative except as documented in HPI. Skin symptoms: Negative except as documented in HPI. Eye symptoms: Negative except as documented in HPI. ENMT symptoms: Negative except as documented in HPI. Respiratory symptoms: Negative except as documented in HPI. Cardiovascular symptoms: Negative except as documented in HPI. Gastrointestinal symptoms: Negative except as documented in HPI. Genitourinary symptoms: Negative except as documented in HPI. Musculoskeletal symptoms: Negative except as documented in HPI. Neurologic symptoms: Negative except as documented in HPI. Psychiatric symptoms: Negative except as documented in HPI. Endocrine symptoms: Negative except as documented in HPI. PFSH ED 2 PFSH: Medical History Hyperlipidemia HTN (hypertension) Intractable nausea and vomiting Diabetic gastroparesis Acute cystitis with hematuria CKD (chronic kidney disease) stage 3, GFR 30-59 ml/min ERICA (acute kidney injury) CHF (congestive heart failure), NYHA class III Pulmonary hypertension CAD (coronary artery disease) Neurogenic bladder Acute kidney injury superimposed on chronic kidney disease Metabolic acidosis COVID-19 Tobacco dependence Drug abuse Anemia Community acquired pneumonia Acute hyperglycemia Esophagitis Complicated UTI (urinary tract infection) Transaminitis Long-term insulin use History of pancreatitis Celiac disease Recurrent UTI Non-alcoholic fatty liver disease Arnold-Chiari malformation Diabetic gastroparesis -continue Reglan Diabetic neuropathy associated with type 1 diabetes mellitus Headache, common migraine, intractable, with status migrainosus Cystitis Pleural effusion 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 Uncontrolled type 1 diabetes mellitus Lymphadenitis Ureterolithiasis Pyelonephritis PID (pelvic inflammatory disease) Anxiety Sepsis Respiratory failure Pancreatitis DKA (diabetic ketoacidoses) Migraine headache Chronic headache Surgical History History of lung surgery -s/p LLL lobectomy secondary to cavitary pneumonia (2017) History of endoscopy History of cholecystectomy Family History Grandfather Diabetes Other Heart disease Hypertension Social History Smoking and tobacco/nicotine status: never used tobacco/nicotine Second hand smoke exposure: Yes Alcohol intake: never Substance/Drug Use: current Household members: children Housing: House Marital status: Single Current occupational status: unemployed Physical Exam 2 Narrative: EXAM NARRATIVE: General: Alert, no acute distress. Skin: Warm, dry. Head: Normocephalic, atraumatic. Neck: Supple, trachea midline. Eye: Extraocular movements are intact. Ears, nose, mouth and throat: mucosa moist. Cardiovascular: Regular, Normal peripheral perfusion. Respiratory: Lungs are clear to auscultation, respirations are non-labored, breath sounds are equal, Symmetrical chest wall expansion. Gastrointestinal: Soft, Nontender, Non distended Musculoskeletal: Normal ROM, no deformity. Neurological: Alert and oriented, No focal neurological deficit observed. Psychiatric: Cooperative, appropriate mood & affect. Course 2 Vital Signs: Vital signs: Vital Signs Temperature 97.8 F 12/20/23 12:03 Pulse Rate 67 12/20/23 13:45 Respiratory Rate 15 12/20/23 13:45 Blood Pressure 209/116 12/20/23 13:45 Pulse Oximetry 98 12/20/23 13:45 Oxygen Delivery Me thod Room Air 12/20/23 12:03 MDM - Chest Pain Medical Decision Making Differential diagnosis for patient with chest pain includes but is not limited to and based on the above HPI, review of systems and physical exam: Pneumonia. unstable angina. angina. Acute coronary syndrome / DE. Pulmonary embolism. Costochondritis / musculoskeletal. Pleurisy. Pericarditis. Esophageal spasm. Pancreatis. Cholecystitis. Orders placed to evaluate differential diagnosis based on the above differential, HPI and physical exam EKG: Time 12:06 PM. Rate 69. Normal sinus rhythm, nonspecific ST changes, no ectopy, normal CT & QRS intervals, This was reviewed and interpreted by myself the ER physician at 12:07 PM Chest x-ray: Cardiomegaly. Right-sided tunneled dialysis catheter. No acute process. Radiology concern for an infiltrate so a CT was ordered. No pneumothorax. This was reviewed and interpreted by myself the ER physician. Repeat EKG: Time 1410. Rate 65. Normal sinus rhythm, nonspecific ST changes, no ectopy, normal CT & QRS intervals, This was reviewed and interpreted by myself the ER physician at 1415. No significant changes from previous Lab Review: Laboratory results were reviewed and interpreted by myself the emergency room physician. Initial troponin is around 300. Reviewing previous labs that is always been around 300 this is not significantly different. Repeat is down a little bit but still just around 300. Mean and creatinine are 18 and 3.0 which would be expected in this dialysis patient. Her sugar is a bit high at 238. No leukocytosis. CT of the chest without contrast: Right lower lobe consolidation that is worrisome for pneumonia. She has no cough and no fevers but I am going to place her on antibiotics because she is at high risk. This was reviewed and interpreted by myself the emergency room physician. I also reviewed the radiology report. I reviewed the patient's medical record. Reexamination: Patient says she feels much better. She is wanting to go home. No more chest pain. She has no cough. No increased work of breathing. No altered mental status. Assessment and plan: Chest pain End-stage renal disease on dialysis Possible pneumonia -IV Rocephin in the emergency room. - Discharged home - Discussed findings and plan with patient. Answered any questions. - All laboratory values were reviewed and interpreted personally by myself, the ER physician - All imaging was reviewed and interpreted personally by myself, the ER physician. - Evaluation and treatment of this problem were appropriate in the emergency setting Lab Data 12/20/23 12:05 12/20/23 12:05 Radiology Impressions Chest X-Ray 12/20/23 12:04 IMPRESSION: 1. Small RIGHT basal infiltrate. Developing pneumonia is not excluded. 2. Trace LEFT basal pleural effusion. Chest CT 12/20/23 14:05 IMPRESSION: 1. Right lower lobe consolidation concerning for pneumonia 2. Small right pleural effusion and trace left pleural effusion 3. Status post left lower lobectomy with stable postsurgical changes. 4. Extensive calcified coronary artery disease Laboratory Results WBC 6.32 10^3/uL (3.29-11.43) 12/20/23 12:05 RBC 4.21 10^6/uL (3.85-5.65) 12/20/23 12:05 Hgb 11.80 g/dL (11.27-16.99) 12/20/23 12:05 Hct 36.6 % (36-47) 12/20/23 12:05 MCV 86.9 fl (85-98) 12/20/23 12:05 MCH 28.0 pg (27-33) 12/20/23 12:05 MCHC 32.2 g/dL (30-55) 12/20/23 12:05 RDW 17.1 % (12.1-15.1) H 12/20/23 12:05 Plt Count 166 10^3/cmm (157-399) 12/20/23 12:05 MPV 10.7 fL (7.4-10.4) H 12/20/23 12:05 Neut % (Auto) 66.7 % 12/20/23 12:05 Lymph % (Auto) 19.0 % 12/20/23 12:05 [place] % (Auto) 8.2 % 12/20/23 12:05 Eos % (Auto) 5.2 % 12/20/23 12:05 Baso % (Auto) 0.6 % 12/20/23 12:05 Neut # (Auto) 4.21 10^3/uL (1.8-7.7) 12/20/23 12:05 Lymph # (Auto) 1.2 10^3/uL (0.8-4.8) 12/20/23 12:05 [place] # (Auto) 0.5 10^3/uL (0.2-0.9) 12/20/23 12:05 Eos # (Auto) 0.3 10^3/uL (0.0-0.8) 12/20/23 12:05 Baso # (Auto) 0.0 10^3/uL (0.0-0.1) 12/20/23 12:05 Nucleated RBC % (auto) 0 % 12/20/23 12:05 Nucleated RBCs # 0.0 /100WBC 12/20/23 12:05 Sodium 140 mmol/L (136-145) 12/20/23 12:05 Potassium 3.5 mmol/L (3.5-5.1) 12/20/23 12:05 Chloride 100 mmol/L (98-107) 12/20/23 12:05 Carbon Dioxide 27 mmol/L (22-29) 12/20/23 12:05 Anion Gap 14.5 (5-19) 12/20/23 12:05 BUN 18 mg/dL (6-20) 12/20/23 12:05 Creatinine 3.0 mg/dL (0.5-0.9) H 12/20/23 12:05 GFR Calculation 17.6 mL/min (90-130) L 12/20/23 12:05 Glucose 238 mg/dL (65-115) H 12/20/23 12:05 Calculated Osmolality 300 mOsm/kg (285-295) H 12/20/23 12:05 Calcium 8.4 mg/dL (8.5-10.5) L 12/20/23 12:05 Total Bilirubin 0.4 mg/dL (0.15-1.2) 12/20/23 12:05 AST 31 U/L (0-32) 12/20/23 12:05 ALT 51 U/L (0-33) H 12/20/23 12:05 Alkaline Phosphatase 154 U/L (35-105) H 12/20/23 12:05 Troponin T Baseline 339 ng/L (0-10) H* 12/20/23 12:05 Troponin T 120 Minute 316.2 ng/L (0-10) H 12/20/23 14:00 Delta Troponin T -22.8 ABS# (0-10) L 12/20/23 14:00 Total Protein 3.0 g/dL (6.6-8.7) L 12/20/23 12:05 Albumin 3.7 g/dL (3.5-5.2) 12/20/23 12:05 Globulin 3.6 g/dL (1.3-4.6) 12/20/23 12:05 All radiology interpretation(s) finalized by discharge Discharge Plan Discharge Patient Disposition: Home Clinical Impression: Chest pain, non-cardiac, Pneumonia Condition: Stable Prescriptions: New Zithromax Z-Raul 250 mg tablet See Rx Instructions .ROUTE .COMPLEX Qty: 6 0RF Rx Instructions: For 250 mg dose pack: take 500 mg today (day 1), then 250 mg for 4 days (days 2-5) cefdinir 300 mg capsule 300 mg PO BID 5 Days Qty: 10 0RF No Action (DME) Dexcom G6 Therapy Technician Misc See Rx Instructions .Route Qty: 1 0RF Rx Instructions: As directed (DME) Dexcom G6 Sensor Device See Rx Instructions .Route Qty: 3 0RF Rx Instructions: As directed (DME) Dexcom G6 Transmitter Device See Rx Instructions .Route Qty: 1 0RF Rx Instructions: As directed clopidogrel 75 mg tablet 75 mg PO DAILY aspirin 81 mg tablet,delayed release (DR/EC) 81 mg PO QAM fluticasone furoate-vilanterol [Breo Ellipta] 100-25 mcg/dose Blister With Device 1 inh INHALATION DAILY PRN (Reason: Shortness Of Breath) nitroglycerin [Nitrostat] 0.4 mg Tablet, Sublingual 0.4 mg SUBLINGUAL Q5M PRN (Reason: Chest Pain) Rx Instructions: do not exceed 3 doses per episode sevelamer carbonate 800 mg Tablet 800 mg PO TID Qty: 90 0RF carvedilol 12.5 mg tablet 12.5 mg PO BID atorvastatin 40 mg tablet 40 mg PO BEDTIME clonidine HCl 0.1 mg tablet See Rx Instructions .ROUTE .COMPLEX PRN (Reason: Blood Pressure) Rx Instructions: TAKE 1 TABLET IF SYSTOLIC BLOOD PRESSURE IS GREATER THAN 160, REPEAT ONCE IF SYSTOLIC BLOOD PRESSURE IS STILL OVER 160 AFTER 1 HOUR. lisinopril 40 mg tablet 40 mg PO BEDTIME Brilinta 90 mg tablet 90 mg PO BID Qty: 60 0RF Discharge Orders: Discharge ED (Routine); Ordered 12/20/23 Ordered By: Dawna Briceno Referrals: Elizabeth Dougherty FNP [Primary Care Provider] - 4-7 days Discharge Diet: Usual diet Discharge Activity: Resume usual activity Patient Instructions: Noncardiac Chest Pain (ED) Activity Restrictions/Additional Instructions: Please arrange for follow-up with your collections director as soon as possible. Make sure not to miss her next dialysis. Thank you for choosing [facility] for your healthcare needs today. Please realize this is an emergency room and that we are providing you with a medical screening exam and this may not be complete and all inclusive of all the testing and or work up that you may need to determine your ailment or severity of your illness. You have been screened and evaluated and felt safe for discharge. Health conditions do change or evolve sometimes and as such it is important that you follow up with your Primary Doctor to be re checked, 3-5 days is a general good time frame for follow up. You are always welcome to return to the ED for re assessment if your symptoms are worsening or you have new concerns Coding Level of Care Code ED Vocational Psychologist for Reji Chandler
[2023-12-20 12:15] VITALS: BP 197/116; O2SAT 100
[2023-12-20 12:15] LABS: Basophils % 0.6 %; Eosinophils # 0.3 10^3/uL (0.0-0.8); Eosinophils % 5.2 %; Hematocrit 36.6 % (36-47); Lymphocytes # 1.2 10^3/uL (0.8-4.8); Mean Corpuscular HGB Conc 32.2 g/dL (30-55); Mean Corpuscular Volume 86.9 fl (85-98); Mean Platelet Volume 10.7 fL (7.4-10.4); Monocytes # 0.5 10^3/uL (0.2-0.9); Monocytes % 8.2 %; Neutrophils # 4.21 10^3/uL (1.8-7.7); Neutrophils % 66.7 %; Nucleated Red Blood Cells % 0 %; Platelet Count 166 10^3/cmm (157-399); Red Blood Count 4.21 10^6/uL (3.85-5.65); Red Cell Distribution Width 17.1 % (12.1-15.1); White Blood Count 6.32 10^3/uL (3.29-11.43)
[2023-12-20 12:34] LABS: Albumin Level 3.7 g/dL (3.5-5.2); Alkaline Phosphatase 154 U/L (35-105); Chloride 100 mmol/L (98-107); Potassium 3.5 mmol/L (3.5-5.1); Sodium 140 mmol/L (136-145)
[2023-12-20 12:36] LABS: Troponin(5th) Baseline 339 ng/L (0-10)
[2023-12-20 12:44] LABS: Anion Gap 14.5 (5-19); Aspartate Amino Transferase 31 U/L (0-32); Blood Urea Nitrogen 18 mg/dL (6-20); Carbon Dioxide 27 mmol/L (22-29); Globulin 3.6 g/dL (1.3-4.6); Total Bilirubin 0.4 mg/dL (0.15-1.2)
[2023-12-20 12:45] VITALS: BP 145/102; PULSE 68; RESP 6; O2SAT 97
[2023-12-20 12:47] LABS: Alanine Aminotransferase 51 U/L (0-33); Calcium 8.4 mg/dL (8.5-10.5); Creatinine Clr Calc Pharmacy 20.6256; Glomerular Filtration Rate 17.6 mL/min (90-130); Glucose 238 mg/dL (65-115); Osmolality Calculated 300 mOsm/kg (285-295)
[2023-12-20 13:15] VITALS: BP 201/113; PULSE 69; RESP 14; O2SAT 98
[2023-12-20 13:27] VITALS: RESP 17; O2SAT 93
[2023-12-20] MEDS: ondansetron 2 mg/ML SDV 2 mL 4 MG IVP (13:27)
[2023-12-20] MEDS: morphine 4 mg/mL SDV 1 mL IVP (13:27)
[2023-12-20 13:45] VITALS: BP 209/116; PULSE 67; RESP 15; O2SAT 98
--- NOTE | 2023-12-20 14:05 | CTR_ITS ---
PROCEDURE INFORMATION: Exam: CT Chest Without Contrast; Diagnostic Exam date and time: 12/20/2023 2:21 PM Age: 38 years old Clinical indication: Abnormal findings; Abnormal radiologic exam of lung or chest; Prior surgery; Surgery date: 6+ months; Surgery type: Lll lobectomy; Additional info: Abnormal chest xray TECHNIQUE: Imaging protocol: Diagnostic computed tomography of the chest without contrast. Radiation optimization: All CT scans at this facility use at least one of these dose optimization techniques: automated exposure control; mA and/or kV adjustment per patient size (includes targeted exams where dose is matched to clinical indication); or iterative reconstruction. COMPARISON: [place] [id number] 07/06/2022 22:23 RADIATION DOSE METRICS: Total DLP (mGy-cm): 388.8 FINDINGS: Lungs: Postsurgical changes status post left lower lobectomy. Stable right lower lobe granuloma. There are right lower lobe consolidating infiltrates concerning for pneumonia. Pleural spaces: Small right pleural effusion and trace left pleural effusion. Heart: Unremarkable. No cardiomegaly. No pericardial effusion. Coronary arteries: Extensive calcified coronary artery disease. Lymph nodes: Stable old calcified infrahilar lymph nodes on the right Vasculature: Unremarkable. No aortic aneurysm. Gallbladder and biliary ducts: Cholecystectomy. Bones/joints: Unremarkable. No acute fracture. Soft tissues: Unremarkable. There is a right internal jugular vein tunneled dialysis catheter in good position. CT/CT chest wo con [id number] IMPRESSION: 1. Right lower lobe consolidation concerning for pneumonia 2. Small right pleural effusion and trace left pleural effusion 3. Status post left lower lobectomy with stable postsurgical changes. 4. Extensive calcified coronary artery disease
--- NOTE | 2023-12-20 14:10 | ECG_ITS ---
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 Measurements Intervals [place] Rate: 65 P: 48 [place]: 184 QRS: -5 QRSD: 109 T: 47 QT: 432 QTc: 451 Interpretive Statements SINUS RHYTHM POSSIBLE LEFT ATRIAL ENLARGEMENT [-0.1mV P-WAVE IN V1/V2] NONSPECIFIC ST & T-WAVE ABNORMALITY Compared to ECG 12/20/2023 12:06:00 No significant changes Electronically Signed On 12-20-2023 20:54:51 CDT by Gilberto Eugene M.D. [email or web address]
[2023-12-20 14:25] LABS: Troponin 5 2HR 316.2 ng/L (0-10)
[2023-12-20 14:26] LABS: Troponin 5 2HR Delta -22.8 ABS# (0-10)
[2023-12-20] MEDS: cefTRIAXone 1,000 MG in sodium chloride 0.9% (plus) 50 ML 100 MG IV (15:49)
== END 2023-12-20 16:28 | disposition home or self-care (01) ==
PROVIDERS: Emergency Provider Emergency Medicine; PCP Nurse Practitioner Family
DX: R07.89 Other chest pain (principal); J18.9 Pneumonia, unspecified organism; Z79.02 Long term (current) use of antithrombotics/antiplatelets; Z79.82 Long term (current) use of aspirin; E10.22 Type 1 diabetes mellitus with diabetic chronic kidney disease; I13.2 Hypertensive heart and chronic kidney disease with heart failure and with stage 5 chronic kidney disease, or end stage renal disease; I50.9 Heart failure, unspecified; N18.6 End stage renal disease; Z99.2 Dependence on renal dialysis; E78.5 Hyperlipidemia, unspecified; I25.10 Atherosclerotic heart disease of native coronary artery without angina pectoris; Z90.2 Acquired absence of lung [part of]; Z77.22 Contact with and (suspected) exposure to environmental tobacco smoke (acute) (chronic)
CPT/HCPCS: 36415; 71045; 71250; 80053; 84484; 85025; 93005; 96374; 96375; 99285; J0696; J2270; J2405

== ENCOUNTER 2023-12-24 22:24 | Emergency (ER) | payer MEDICAID, SELFPAY ==
--- NOTE | 2023-12-24 22:27 | ECG_ITS ---
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 Measurements Intervals [place] Rate: 67 P: 32 [place]: 174 QRS: -16 QRSD: 109 T: 27 QT: 426 QTc: 453 Interpretive Statements SINUS RHYTHM NONSPECIFIC ST & T-WAVE ABNORMALITY Compared to ECG 12/20/2023 14:10:36 No significant changes Electronically Signed On 12-25-2023 19:25:31 CDT by Travis Gallegos M.D. [email or web address]
--- NOTE | 2023-12-24 22:27 | XRR_ITS ---
PROCEDURE INFORMATION: Exam: XR Chest Exam date and time: 12/24/2023 10:33 PM Age: 38 years old Clinical indication: Angina; Prior surgery; Surgery date: 6+ months; Surgery type: Lll lobectomy; Additional info: Chest pain TECHNIQUE: Imaging protocol: Radiologic exam of the chest. Views: 1 view. COMPARISON: CT chest con [id number] 12/20/2023 2:21 PM FINDINGS: Tubes, catheters and devices: Right subclavian catheter tip in the upper right atrium. Lungs: Patchy bibasilar airspace densities. Pleural spaces: Small bibasilar effusions. Heart/Mediastinum: Unremarkable. No cardiomegaly. Bones/joints: Unremarkable. XR/XR chest 1V portable [id number] IMPRESSION: Continued bibasilar effusions and patchy airspace disease.
[2023-12-24 22:31] VITALS: BP 183/105; PULSE 67; RESP 26; TEMP 36.6; O2SAT 99
--- NOTE | 2023-12-24 22:58 | ED_ITS ---
HPI - Chest Pain 2 General: Chief Complaint: Chest Pain Stated Complaint: Chest Pains Time Seen by Provider: 12/24/23 22:39 History of Present Illness: Patient presents to the ER with complaints of substernal chest pressure radiating into her left arm and her neck. She is claiming mild shortness of breath during this. And mild nausea. Patient denies any diaphoresis. Patient is a end-stage renal disease on dialysis, she goes Saturday she has not missed any days. Patient does have a cardiac history and is on Plavix and Brilinta. Patient states his pain started about an hour ago and has been constant ever since. She states she did take 1 nitro and it did not help. Review of Systems 2 General: Reports: 10 or more systems reviewed and unremarkable except in HPI and below PFSH ED 2 PFSH: Medical History Hyperlipidemia HTN (hypertension) Intractable nausea and vomiting Diabetic gastroparesis Acute cystitis with hematuria CKD (chronic kidney disease) stage 3, GFR 30-59 ml/min ERICA (acute kidney injury) CHF (congestive heart failure), NYHA class III Pulmonary hypertension CAD (coronary artery disease) Neurogenic bladder Acute kidney injury superimposed on chronic kidney disease Metabolic acidosis COVID-19 Tobacco dependence Drug abuse Anemia Community acquired pneumonia Acute hyperglycemia Esophagitis Complicated UTI (urinary tract infection) Transaminitis Long-term insulin use History of pancreatitis Celiac disease Recurrent UTI Non-alcoholic fatty liver disease Arnold-Chiari malformation Diabetic gastroparesis -continue Reglan Diabetic neuropathy associated with type 1 diabetes mellitus Headache, common migraine, intractable, with status migrainosus Cystitis Pleural effusion 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 Uncontrolled type 1 diabetes mellitus Lymphadenitis Ureterolithiasis Pyelonephritis PID (pelvic inflammatory disease) Anxiety Sepsis Respiratory failure Pancreatitis DKA (diabetic ketoacidoses) Migraine headache Chronic headache Surgical History History of lung surgery -s/p LLL lobectomy secondary to cavitary pneumonia (2017) History of endoscopy History of cholecystectomy Family History Grandfather Diabetes Other Heart disease Hypertension Social History Smoking and tobacco/nicotine status: never used tobacco/nicotine Second hand smoke exposure: Yes Alcohol intake: never Substance/Drug Use: current Household members: children Housing: House Marital status: Single Current occupational status: unemployed Physical Exam 2 Const: COMMON NORMALS: no acute distress, average body habitus, patient oriented x3, no limitations, healthy appearing, alert and well nourished HENMT: COMMON NORMALS: normocephalic, atraumatic, hearing grossly normal bilaterally, external ears normal, Normal external nose present and moist oral mucous membranes HEAD & SCALP: normocephalic and atraumatic NOSE: Normal external nose present EXTERNAL EAR: Yes external ears normal Neck/C-Spine: COMMON NORMALS: no JVD Chest: COMMONS NORMALS: normal inspection of the chest and normal palpation of entire chest wall Resp: COMMON NORMALS: normal respiratory effort, No retractions, No use of accessory muscles and clear to auscultation bilaterally AUSCULTATION: clear to auscultation bilaterally Cardio: COMMON NORMALS: no JVD, regular rate, regular rhythm, S1 normal heart sound present, S2 normal heart sound present, No gallops present (Cardio), No clicks present (Cardio), No murmurs present (Cardio) and No rub (Cardio) R ATE: regular rate RHYTHM: regular rhythm HEART SOUNDS: S1 normal heart sound present and S2 normal heart sound present GI: COMMON NORMALS: Normal to inspection, nondistended, normoactive bowel sounds present, Soft to palpation, non-tender, No hepatosplenomegaly present and no masses PALPATION: Yes Soft to palpation and Yes No hepatosplenomegaly present Neuro: COMMON NORMALS: patient oriented x3 SENSORIUM/ORIENTATION: Yes alert Course 2 Vital Signs: Vital signs: Vital Signs Temperature 97.8 F 12/24/23 22:31 Pulse Rate 70 12/25/23 06:35 Respiratory Rate 14 12/25/23 06:35 Blood Pressure 163/92 12/25/23 06:35 Pulse Oximetry 95 12/25/23 06:35 MDM - Chest Pain Medical Decision Making Patient presents to the ER with chest pain patient was worked up in a standard chest pain fashion with serial EKGs, serial troponins, chest x-ray, initial troponin is elevated at 324 but this is pretty normal for her, 2-hour troponin was 357 for delta of 33.7 and the positive. EKGs were similar no acute changes, he was thought to keep around for the 6-hour troponin due to this positive delta. Patient had a cath and a stent approximately a month ago. 6-hour troponin was 330 for delta of 6.7, EKG was obtained again with no changes. Patient be discharged home. Differential Diagnosis Unlikely acute massive pulmonary embolism, acute respiratory failure, acute myocardial infarction, cardiac arrest or sudden cardiac Medical Records I reviewed the patient's medical records. Lab Data I reviewed the patient's lab results. 12/24/23 23:25 12/24/23 23:25 Radiology Impressions Chest X-Ray 12/24/23 22:27 IMPRESSION: Continued bibasilar effusions and patchy airspace disease. Laboratory Results WBC 5.79 10^3/uL (3.29-11.43) 12/24/23 23: RBC 3.90 10^6/uL (3.85-5.65) 12/24/23 23: Hgb 10.90 g/dL (11.27-16.99) L 12/24/23 23: Hct 34.0 % (36-47) L 12/24/23 23: MCV 87.2 fl (85-98) 12/24/23 23: MCH 27.9 pg (27-33) 12/24/23 23: MCHC 32.1 g/dL (30-55) 12/24/23 23: RDW 16.7 % (12.1-15.1) H 12/24/23 23:25 Plt Count 112 10^3/cmm (157-399) L 12/24/23 23: MPV 10.9 fL (7.4-10.4) H 12/24/23 23:25 Neut % (Auto) 55.8 % 12/24/23 23: Lymph % (Auto) 27.3 % 12/24/23 23: [place] % (Auto) 10.5 % 12/24/23 23: Eos % (Auto) 5.4 % 12/24/23 23: Baso % (Auto) 0.7 % 12/24/23 23: Neut # (Auto) 3.23 10^3/uL (1.8-7.7) 12/24/23 23: Lymph # (Auto) 1.6 10^3/uL (0.8-4.8) 12/24/23 23:25 [place] # (Auto) 0.6 10^3/uL (0.2-0.9) 12/24/23 23:25 Eos # (Auto) 0.3 10^3/uL (0.0-0.8) 12/24/23 23:25 Baso # (Auto) 0.0 10^3/uL (0.0-0.1) 12/24/23 23:25 Nucleated RBC % (auto) 0 % 12/24/23 23:25 Nucleated RBCs # 0.0 /100WBC 12/24/23 23:25 Sodium 138 mmol/L (136-145) 12/24/23 23:25 Potassium 4.6 mmol/L (3.5-5.1) 12/24/23 23:25 Chloride 101 mmol/L (98-107) 12/24/23 23:25 Carbon Dioxide 24 mmol/L (22-29) 12/24/23 23:25 Anion Gap 17.6 (5-19) 12/24/23 23:25 BUN 32 mg/dL (6-20) H 12/24/23 23:25 Creatinine 4.5 mg/dL (0.5-0.9) H 12/24/23 23:25 GFR Calculation 11.0 mL/min (90-130) L 12/24/23 23:25 Glucose 352 mg/dL (65-115) H 12/24/23 23:25 Calculated Osmolality 307 mOsm/kg (285-295) H 12/24/23 23:25 Calcium 7.7 mg/dL (8.5-10.5) L 12/24/23 23:25 Total Bilirubin 0.3 mg/dL (0.15-1.2) 12/24/23 23:25 AST 32 U/L (0-32) 12/24/23 23:25 ALT 41 U/L (0-33) H 12/24/23 23:25 Alkaline Phosphatase 132 U/L (35-105) H 12/24/23 23:25 Troponin T Baseline 324 ng/L (0-10) H* 12/24/23 23:25 Troponin T 120 Minute 357.7 ng/L (0-10) H 12/25/23 01:35 Delta Troponin T 33.7 ABS# (0-10) H* 12/25/23 01:35 Troponin T Hi Sens 6Hr 330.7 ng/L (0-10) H 12/25/23 06:31 Troponin T Hi Sens 6Hr Delta 6.7 ng/L (0-12) 12/25/23 06:31 Total Protein 6.5 g/dL (6.6-8.7) L 12/24/23 23:25 Albumin 3.1 g/dL (3.5-5.2) L 12/24/23 23:25 Globulin 3.4 g/dL (1.3-4.6) 12/24/23 23:25 All radiology interpretation(s) finalized by discharge Discharge Plan Discharge Patient Disposition: Home Clinical Impression: Chest pain Qualifiers: Chest pain type: unspecified Qualified Code(s): R07.9 - Chest pain, unspecified Condition: Stable Prescriptions: No Action (DME) Dexcom G6 Tax Revenue Officer Misc See Rx Instructions .Route Qty: 1 0RF Rx Instructions: As directed (DME) Dexcom G6 Sensor Device See Rx Instructions .Route Qty: 3 0RF Rx Instructions: As directed (DME) Dexcom G6 Transmitter Device See Rx Instructions .Route Qty: 1 0RF Rx Instructions: As directed clopidogrel 75 mg tablet 75 mg PO DAILY aspirin 81 mg tablet,delayed release (DR/EC) 81 mg PO QAM Zithromax Z-Raul 250 mg tablet See Rx Instructions .ROUTE .COMPLEX Qty: 6 0RF Rx Instructions: For 250 mg dose pack: take 500 mg today (day 1), then 250 mg for 4 days (days 2-5) cefdinir 300 mg capsule 300 mg PO BID 5 Days Qty: 10 0RF fluticasone furoate-vilanterol [Breo Ellipta] 100-25 mcg/dose Blister With Device 1 inh INHALATION DAILY PRN (Reason: Shortness Of Breath) nitroglycerin [Nitrostat] 0.4 mg Tablet, Sublingual 0.4 mg SUBLINGUAL Q5M PRN (Reason: Chest Pain) Rx Instructions: do not exceed 3 doses per episode sevelamer carbonate 800 mg Tablet 800 mg PO TID Qty: 90 0RF carvedilol 12.5 mg tablet 12.5 mg PO BID atorvastatin 40 mg tablet 40 mg PO BEDTIME clonidine HCl 0.1 mg tablet See Rx Instructions .ROUTE .COMPLEX PRN (Reason: Blood Pressure) Rx Instructions: TAKE 1 TABLET IF SYSTOLIC BLOOD PRESSURE IS GREATER THAN 160, REPEAT ONCE IF SYSTOLIC BLOOD PRESSURE IS STILL OVER 160 AFTER 1 HOUR. lisinopril 40 mg tablet 40 mg PO BEDTIME Brilinta 90 mg tablet 90 mg PO BID Qty: 60 0RF Discharge Orders: Discharge ED (Routine); Ordered 12/25/23 Ordered By: Bro James Referrals: Elizabeth Dougherty FNP [Primary Care Provider] - 1 week Patient Instructions: Chest Pain (ED) Activity Restrictions/Additional Instructions: Your evaluation ER initially showed your troponin was elevated in the 2-hour troponin was slightly even more elevated, the 6-hour troponin went back down to baseline almost. No EKG changes were noted. This is unlikely acute cardiac in nature. Please follow-up with your family practice physician and or night club manager within the next 7 to 10 days for further evaluation and treatment. If your chest pain worsens please feel free to return to the ER. Coding Level of Care Code ED Unit Support Representative for Reji Chandler
[2023-12-24 23:25] VITALS: PULSE 66; RESP 18; O2SAT 97
[2023-12-24 23:31] VITALS: BP 195/110; PULSE 66; RESP 16; O2SAT 96
[2023-12-24 23:31] LABS: Basophils % 0.7 %; Eosinophils # 0.3 10^3/uL (0.0-0.8); Eosinophils % 5.4 %; Lymphocytes # 1.6 10^3/uL (0.8-4.8); Lymphocytes % 27.3 %; Mean Corpuscular HGB Conc 32.1 g/dL (30-55); Mean Corpuscular Hemoglobin 27.9 pg (27-33); Mean Corpuscular Volume 87.2 fl (85-98); Mean Platelet Volume 10.9 fL (7.4-10.4); Monocytes # 0.6 10^3/uL (0.2-0.9); Monocytes % 10.5 %; Neutrophils # 3.23 10^3/uL (1.8-7.7); Neutrophils % 55.8 %; Nucleated Red Blood Cells % 0 %; Platelet Count 112 10^3/cmm (157-399); Red Cell Distribution Width 16.7 % (12.1-15.1); White Blood Count 5.79 10^3/uL (3.29-11.43)
[2023-12-24 23:50] LABS: Troponin(5th) Baseline 324 ng/L (0-10)
[2023-12-24 23:52] LABS: Alanine Aminotransferase 41 U/L (0-33); Albumin Level 3.1 g/dL (3.5-5.2); Alkaline Phosphatase 132 U/L (35-105); Aspartate Amino Transferase 32 U/L (0-32); Blood Urea Nitrogen 32 mg/dL (6-20); Calcium 7.7 mg/dL (8.5-10.5); Carbon Dioxide 24 mmol/L (22-29); Creatinine Clr Calc Pharmacy 13.6524; Globulin 3.4 g/dL (1.3-4.6); Glucose 352 mg/dL (65-115); Total Bilirubin 0.3 mg/dL (0.15-1.2); Total Protein 6.5 g/dL (6.6-8.7)
[2023-12-25] VITALS (12 sets, daily range): BP systolic 121–206; BP diastolic 67–122; PULSE 66–74; RESP 12–20; O2SAT 94–97
[2023-12-25 00:18] LABS: Anion Gap 17.6 (5-19); Chloride 101 mmol/L (98-107); Osmolality Calculated 307 mOsm/kg (285-295); Potassium 4.6 mmol/L (3.5-5.1); Sodium 138 mmol/L (136-145)
--- NOTE | 2023-12-25 00:27 | ECG_ITS ---
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 Measurements Intervals [place] Rate: 65 P: 40 [place]: 188 QRS: -11 QRSD: 105 T: 90 QT: 451 QTc: 471 Interpretive Statements SINUS RHYTHM POSSIBLE LEFT ATRIAL ENLARGEMENT [-0.1mV P-WAVE IN V1/V2] NONSPECIFIC ST & T-WAVE ABNORMALITY Compared to ECG 12/20/2023 14:10:36 No significant changes Electronically Signed On 12-25-2023 19:41:46 CDT by Travis Gallegos M.D. [id number]
[2023-12-25] MEDS: morphine 4 mg/mL SDV 1 mL 2 MG IVP (01:13)
[2023-12-25 02:19] LABS: Troponin 5 2HR 357.7 ng/L (0-10); Troponin 5 2HR Delta 33.7 ABS# (0-10)
[2023-12-25] MEDS: hyDRALAzine 20 mg/mL INJ 1 mL IVP (02:49)
[2023-12-25] MEDS: metoclopramide 5 mg/mL SDV 2 mL 10 MG IVP (03:27)
[2023-12-25] MEDS: morphine 4 mg/mL SDV 1 mL 2 MG IM (03:33)
--- NOTE | 2023-12-25 04:27 | ECG_ITS ---
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 Measurements Intervals [place] Rate: 71 P: 64 [place]: 174 QRS: 9 QRSD: 102 T: 104 QT: 447 QTc: 488 Interpretive Statements SINUS RHYTHM LEFT ATRIAL ENLARGEMENT [-0.15mV P-WAVE IN V1/V2] ST DEVIATION AND MODERATE T-WAVE ABNORMALITY, CONSIDER LATERAL ISCHEMIA [-0.1+ mV T-WAVE IN I/aVL/V5/V6] Compared to ECG 12/25/2023 01:05:11 Possible ischemia now present T-wave abnormality still present Electronically Signed On 12-25-2023 19:42:41 CDT by Travis Gallegos M.D. [id number]
[2023-12-25 07:02] LABS: Troponin 5 6HR Delta 6.7 ng/L (0-12)
--- NOTE | 2023-12-25 07:07 | ECG_ITS ---
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 Measurements Intervals [place] Rate: 72 P: 63 [place]: 177 QRS: 8 QRSD: 106 T: 41 QT: 443 QTc: 485 Interpretive Statements SINUS RHYTHM POSSIBLE LEFT ATRIAL ENLARGEMENT [-0.1mV P-WAVE IN V1/V2] NONSPECIFIC ST & T-WAVE ABNORMALITY Compared to ECG 12/25/2023 05:35:51 T-wave abnormality still present Electronically Signed On 12-25-2023 19:26:16 CDT by Travis Gallegos M.D. [id number]
[2023-12-25 07:11] LABS: Troponin 5 6HR 330.7 ng/L (0-10)
== END 2023-12-25 07:30 | disposition home or self-care (01) ==
PROVIDERS: Emergency Provider Emergency Medicine; PCP Nurse Practitioner Family
DX: R07.9 Chest pain, unspecified (principal); Z79.02 Long term (current) use of antithrombotics/antiplatelets; Z79.82 Long term (current) use of aspirin; Z77.22 Contact with and (suspected) exposure to environmental tobacco smoke (acute) (chronic); I13.0 Hypertensive heart and chronic kidney disease with heart failure and stage 1 through stage 4 chronic kidney disease, or unspecified chronic kidney disease; E10.22 Type 1 diabetes mellitus with diabetic chronic kidney disease; N18.30 Chronic kidney disease, stage 3 unspecified; I50.9 Heart failure, unspecified; I25.10 Atherosclerotic heart disease of native coronary artery without angina pectoris; E78.5 Hyperlipidemia, unspecified
CPT/HCPCS: 36415; 71045; 80053; 84484; 85025; 93005; 96372; 96374; 96375; 99285; J0360; J2270; J2765

== ENCOUNTER 2023-12-27 02:36 | Inpatient (IN) | payer MEDICARE, MEDICAID, SELFPAY ==
[2023-12-27] VITALS (27 sets, daily range): BP systolic 161–217; BP diastolic 84–136; PULSE 77–92; RESP 13–20; TEMP 36.5–36.9; O2SAT 92–99; BMI 29.2
--- NOTE | 2023-12-27 03:00 | ECG_ITS ---
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 Measurements Intervals [place] Rate: 76 P: 75 [place]: 183 QRS: 52 QRSD: 108 T: 75 QT: 415 QTc: 467 Interpretive Statements SINUS RHYTHM Compared to ECG 12/25/2023 07:07:08 T-wave abnormality no longer present Electronically Signed On 12-27-2023 18:51:45 CDT by Riccardo Burch M.D. [id number]
[2023-12-27] MEDS: ipratropium-albuterol 3 mL Neb INHALATION ×2 (03:49→14:01)
[2023-12-27] MEDS: hyDRALAzine 20 mg/mL INJ 1 mL 10 MG IM ×2 (03:55→06:43)
[2023-12-27] MEDS: dexamethasone 10 mg/mL INJ IM (03:56)
--- NOTE | 2023-12-27 04:11 | W.ED.SOB ---
Documented by User: Bro James DO 12/27/23 04:13 HPI - SOB/Dyspnea General: Chief Complaint: Shortness of Breath/Dyspnea Stated Complaint: SOB,Swollen legs Time Seen by Provider: 12/27/23 02:39 History of Present Illness: HPI Narrative: Patient presents to the ER today with complaint of shortness of breath. Patient says she had a good day all day today but when she started to lie down at night she gets short of breath. Patient did states she missed dialysis today and is more swollen than normal. Patient says it helps to set up and is worse when she lies down. Patient tried using her inhaler at home but this did not help. Review of Systems General: Reports: 10 or more systems reviewed and unremarkable except in HPI and below PFSH ED PFSH: Medical History Hyperlipidemia HTN (hypertension) Intractable nausea and vomiting Diabetic gastroparesis Acute cystitis with hematuria CKD (chronic kidney disease) stage 3, GFR 30-59 ml/min ERICA (acute kidney injury) CHF (congestive heart failure), NYHA class III Pulmonary hypertension CAD (coronary artery disease) Neurogenic bladder Acute kidney injury superimposed on chronic kidney disease Metabolic acidosis COVID-19 Tobacco dependence Drug abuse Anemia Community acquired pneumonia Acute hyperglycemia Esophagitis Complicated UTI (urinary tract infection) Transaminitis Long-term insulin use History of pancreatitis Celiac disease Recurrent UTI Non-alcoholic fatty liver disease Arnold-Chiari malformation Diabetic gastroparesis -continue Reglan Diabetic neuropathy associated with type 1 diabetes mellitus Headache, common migraine, intractable, with status migrainosus Cystitis Pleural effusion 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 Uncontrolled type 1 diabetes mellitus Lymphadenitis Ureterolithiasis Pyelonephritis PID (pelvic inflammatory disease) Anxiety Sepsis Respiratory failure Pancreatitis DKA (diabetic ketoacidoses) Migraine headache Chronic headache Surgical History History of lung surgery -s/p LLL lobectomy secondary to cavitary pneumonia (2017) History of endoscopy History of cholecystectomy Family History Grandfather Diabetes Other Heart disease Hypertension Social History Smoking and tobacco/nicotine status: never used tobacco/nicotine Second hand smoke exposure: Yes Alcohol intake: never Substance/Drug Use: current Household members: children Housing: House Marital status: Single Current occupational status: unemployed Physical Exam Const: COMMON NORMALS: no acute distress, average body habitus, patient oriented x3, no limitations, healthy appearing, alert and well nourished HENMT: COMMON NORMALS: normocephalic, atraumatic, hearing grossly normal bilaterally, external ears normal, Normal external nose present and moist oral mucous membranes HEAD & SCALP: normocephalic and atraumatic NOSE: Normal external nose present EXTERNAL EAR: Yes external ears normal Neck/C-Spine: COMMON NORMALS: no JVD Chest: COMMONS NORMALS: normal inspection of the chest and normal palpation of entire chest wall Resp: COMMON NORMALS: normal respiratory effort, No retractions and No use of accessory muscles; negative for clear to auscultation bilaterally (Left-sided diffuse wheezing minimal) AUSCULTATION: not clear to auscultation bilaterally (Left-sided diffuse wheezing minimal) Cardio: COMMON NORMALS: no JVD, regular rate, regular rhythm, S1 normal heart sound present and S2 normal heart sound present RATE: regular rate RHYTHM: regular rhythm HEART SOUNDS: S1 normal heart sound present and S2 normal heart sound present Extremity: NARRATIVE EXTREMITY EXAM: 1+ pitting edema bilateral lower extremities Neuro: COMMON NORMALS: patient oriented x3 SENSORIUM/ORIENTATION: Yes alert Course Vital Signs: Vital signs: Vital Signs Temperature 98.4 F 12/27/23 15:36 Pulse Rate 89 12/27/23 15:36 Respiratory Rate 18 12/27/23 15:36 Blood Pressure 182/98 12/27/23 15:36 Pulse Oximetry 95 12/27/23 14:00 Oxygen Delivery Me thod Nasal Cannula 12/27/23 14:00 Oxygen Flow Rate 3 12/27/23 14:00 MDM - SOB/Dyspnea Medical Records I reviewed the patient's medical records. Lab Data I reviewed the patient's lab results. 12/27/23 06:08 12/27/23 06:08 Labs/Radiology: Radiology Impressions Chest X-Ray 12/27/23 06:17 IMPRESSION: No significant change. Chest/Abdomen/Pelvis CT 12/27/23 06:37 IMPRESSION: 1. Numerous mildly enlarged mediastinal and right hilar lymph nodes similar to prior exam. 2. Postsurgical changes posteriorly in the left hilum and extending along the medial aspect of the left lower lobe consistent with partial left lower lobectomy unchanged from prior exam. Focal area of pleural-based consolidation noted in this area unchanged. 3. Small bilateral pleural effusions right greater than left with adjacent lung interstitial thickening similar to prior exam however there is increase in ground-glass opacities seen in the right upper and lower lobes suggesting increased edema and/or pneumonia. IMPRESSION: 1. There is nonspecific urinary bladder wall thickening, under distention versus cystitis. 2. Rectosigmoid colon wall thickening without adjacent fatty stranding most likely secondary to incomplete distension but colitis could give a similar appearance. Laboratory Results WBC 8.01 10^3/uL (3.29-11.43) 12/27/23 06:08 RBC 4.08 10^6/uL (3.85-5.65) 12/27/23 06:08 Hgb 11.40 g/dL (11.27-16.99) 12/27/23 06:08 Hct 37.5 % (36-47) 12/27/23 06:08 MCV 91.9 fl (85-98) 12/27/23 06:08 MCH 27.9 pg (27-33) 12/27/23 06:08 MCHC 30.4 g/dL (30-55) 12/27/23 06:08 RDW 16.1 % (12.1-15.1) H 12/27/23 06:08 Plt Count 125 10^3/cmm (157-399) L 12/27/23 06:08 MPV 11.2 fL (7.4-10.4) H 12/27/23 06:08 Neut % (Auto) 87.0 % 12/27/23 06:08 Lymph % (Auto) 7.5 % 12/27/23 06:08 [place] % (Auto) 2.6 % 12/27/23 06:08 Eos % (Auto) 2.0 % 12/27/23 06:08 Baso % (Auto) 0.7 % 12/27/23 06:08 Neut # (Auto) 6.96 10^3/uL (1.8-7.7) 12/27/23 06:08 Lymph # (Auto) 0.6 10^3/uL (0.8-4.8) L 12/27/23 06:08 [place] # (Auto) 0.2 10^3/uL (0.2-0.9) 12/27/23 06:08 Eos # (Auto) 0.2 10^3/uL (0.0-0.8) 12/27/23 06:08 Baso # (Auto) 0.1 10^3/uL (0.0-0.1) 12/27/23 06:08 Nucleated RBC % (auto) 0 % 12/27/23 06:08 Nucleated RBCs # 0.0 /100WBC 12/27/23 06:08 Sodium 135 mmol/L (136-145) L 12/27/23 06:08 Potassium 5.4 mmol/L (3.5-5.1) H 12/27/23 06:08 Chloride 100 mmol/L (98-107) 12/27/23 06:08 Carbon Dioxide 16 mmol/L (22-29) L 12/27/23 06:08 Anion Gap 24.4 (5-19) H 12/27/23 06:08 BUN 61 mg/dL (6-20) H 12/27/23 06:08 Creatinine 7.1 mg/dL (0.5-0.9) H* 12/27/23 06:08 GFR Calculation 6.5 mL/min (90-130) L 12/27/23 06:08 Glucose 329 mg/dL (65-115) H 12/27/23 06:08 Calculated Osmolality 310 mOsm/kg (285-295) H 12/27/23 06:08 Calcium 8.4 mg/dL (8.5-10.5) L 12/27/23 06:08 Phosphorus 7.4 mg/dL (2.5-4.5) H 12/27/23 06:08 Magnesium 1.9 mg/dL (1.7-2.3) 12/27/23 06:08 Total Bilirubin 0.4 mg/dL (0.15-1.2) 12/27/23 06:08 AST 37 U/L (0-32) H 12/27/23 06:08 ALT 48 U/L (0-33) H 12/27/23 06:08 Alkaline Phosphatase 163 U/L (35-105) H 12/27/23 06:08 Total Protein 7.2 g/dL (6.6-8.7) 12/27/23 06:08 Albumin 3.3 g/dL (3.5-5.2) L 12/27/23 06:08 Globulin 3.9 g/dL (1.3-4.6) 12/27/23 06:08 Lipase 18 U/L (13-60) 12/27/23 06:08 Random Cortisol 30.90 ug/dL (2.47-19.5) H 12/27/23 07:23 Hep Bs Antigen Non-reactive (Nonreactive) 12/27/23 06:08 Hep Bs Antibody 18.8 (11.5-1000) 12/27/23 06:08 Hep B Core Total Ab Non-reactive (Nonreactive) 12/27/23 06:08 No radiology studies performed this visit Discharge Plan Discharge Patient Disposition: Admitted As Inpatient Admit Provider: Ruben Rust Clinical Impression: ESRD (end stage renal disease) Fluid overload Qualifiers: Hypervolemia type: unspecified Qualified Code(s): E87.70 - Fluid overload, unspecified Abdominal pain Qualifiers: Abdominal location: left upper quadrant Qualified Code(s): R10.12 - Left upper quadrant pain Condition: Stable Coding Level of Care Code ED Pc Network Technician for Chg Fwd Documented by User: Suri Blackburn MD 12/27/23 17:48 HPI - SOB/Dyspnea General: Chief Complaint: Shortness of Breath/Dyspnea Stated Complaint: SOB,Swollen legs Time Seen by Provider: 12/27/23 02:39 PFSH ED PFSH: Medical History Hyperlipidemia HTN (hypertension) Intractable nausea and vomiting Diabetic gastroparesis Acute cystitis with hematuria CKD (chronic kidney disease) stage 3, GFR 30-59 ml/min ERICA (acute kidney injury) CHF (congestive heart failure), NYHA class III Pulmonary hypertension CAD (coronary artery disease) Neurogenic bladder Acute kidney injury superimposed on chronic kidney disease Metabolic acidosis COVID-19 Tobacco dependence Drug abuse Anemia Community acquired pneumonia Acute hyperglycemia Esophagitis Complicated UTI (urinary tract infection) Transaminitis Long-term insulin use History of pancreatitis Celiac disease Recurrent UTI Non-alcoholic fatty liver disease Arnold-Chiari malformation Diabetic gastroparesis -continue Reglan Diabetic neuropathy associated with type 1 diabetes mellitus Headache, common migraine, intractable, with status migrainosus Cystitis Pleural effusion 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 Uncontrolled type 1 diabetes mellitus Lymphadenitis Ureterolithiasis Pyelonephritis PID (pelvic inflammatory disease) Anxiety Sepsis Respiratory failure Pancreatitis DKA (diabetic ketoacidoses) Migraine headache Chronic headache Surgical History History of lung surgery -s/p LLL lobectomy secondary to cavitary pneumonia (2017) History of endoscopy History of cholecystectomy Family History Grandfather Diabetes Other Heart disease Hypertension Social History Smoking and tobacco/nicotine status: never used tobacco/nicotine Second hand smoke exposure: Yes Alcohol intake: never Substance/Drug Use: current Household members: children Housing: House Marital status: Single Current occupational status: unemployed Course Vital Signs: Vital signs: Vital Signs Temperature 98.4 F 12/27/23 15:36 Pulse Rate 89 12/27/23 15:36 Respiratory Rate 18 12/27/23 15:36 Blood Pressure 182/98 12/27/23 15:36 Pulse Oximetry 95 12/27/23 14:00 Oxygen Delivery Me thod Nasal Cannula 12/27/23 14:00 Oxygen Flow Rate 3 12/27/23 14:00 MDM - SOB/Dyspnea Medical Decision Making ESRD patient with missed dialysis, shortness of breath. Since being in the ED she is complaining of severe abdominal pain and vomiting. She says that she feels the same way she did when her kidneys first shut down. She was treated for pain and nausea. She is in need for dialysis and will be admitted to obs by the hospitalist with nephrology consulting for dialysis. The CT of her abdomen was unremarkable. Lab Data 12/27/23 06:08 12/27/23 06:08 Labs/Radiology: Radiology Impressions Chest X-Ray 12/27/23 06:17 IMPRESSION: No significant change. Chest/Abdomen/Pelvis CT 12/27/23 06:37 IMPRESSION: 1. Numerous mildly enlarged mediastinal and right hilar lymph nodes similar to prior exam. 2. Postsurgical changes posteriorly in the left hilum and extending along the medial aspect of the left lower lobe consistent with partial left lower lobectomy unchanged from prior exam. Focal area of pleural-based consolidation noted in this area unchanged. 3. Small bilateral pleural effusions right greater than left with adjacent lung interstitial thickening similar to prior exam however there is increase in ground-glass opacities seen in the right upper and lower lobes suggesting increased edema and/or pneumonia. IMPRESSION: 1. There is nonspecific urinary bladder wall thickening, under distention versus cystitis. 2. Rectosigmoid colon wall thickening without adjacent fatty stranding most likely secondary to incomplete distension but colitis could give a similar appearance. Laboratory Results WBC 8.01 10^3/uL (3.29-11.43) 12/27/23 06:08 RBC 4.08 10^6/uL (3.85-5.65) 12/27/23 06:08 Hgb 11.40 g/dL (11.27-16.99) 12/27/23 06:08 Hct 37.5 % (36-47) 12/27/23 06:08 MCV 91.9 fl (85-98) 12/27/23 06:08 MCH 27.9 pg (27-33) 12/27/23 06:08 MCHC 30.4 g/dL (30-55) 12/27/23 06:08 RDW 16.1 % (12.1-15.1) H 12/27/23 06:08 Plt Count 125 10^3/cmm (157-399) L 12/27/23 06:08 MPV 11.2 fL (7.4-10.4) H 12/27/23 06:08 Neut % (Auto) 87.0 % 12/27/23 06:08 Lymph % (Auto) 7.5 % 12/27/23 06:08 [place] % (Auto) 2.6 % 12/27/23 06:08 Eos % (Auto) 2.0 % 12/27/23 06:08 Baso % (Auto) 0.7 % 12/27/23 06:08 Neut # (Auto) 6.96 10^3/uL (1.8-7.7) 12/27/23 06:08 Lymph # (Auto) 0.6 10^3/uL (0.8-4.8) L 12/27/23 06:08 [place] # (Auto) 0.2 10^3/uL (0.2-0.9) 12/27/23 06:08 Eos # (Auto) 0.2 10^3/uL (0.0-0.8) 12/27/23 06:08 Baso # (Auto) 0.1 10^3/uL (0.0-0.1) 12/27/23 06:08 Nucleated RBC % (auto) 0 % 12/27/23 06:08 Nucleated RBCs # 0.0 /100WBC 12/27/23 06:08 Sodium 135 mmol/L (136-145) L 12/27/23 06:08 Potassium 5.4 mmol/L (3.5-5.1) H 12/27/23 06:08 Chloride 100 mmol/L (98-107) 12/27/23 06:08 Carbon Dioxide 16 mmol/L (22-29) L 12/27/23 06:08 Anion Gap 24.4 (5-19) H 12/27/23 06:08 BUN 61 mg/dL (6-20) H 12/27/23 06:08 Creatinine 7.1 mg/dL (0.5-0.9) H* 12/27/23 06:08 GFR Calculation 6.5 mL/min (90-130) L 12/27/23 06:08 Glucose 329 mg/dL (65-115) H 12/27/23 06:08 Calculated Osmolality 310 mOsm/kg (285-295) H 12/27/23 06:08 Calcium 8.4 mg/dL (8.5-10.5) L 12/27/23 06:08 Phosphorus 7.4 mg/dL (2.5-4.5) H 12/27/23 06:08 Magnesium 1.9 mg/dL (1.7-2.3) 12/27/23 06:08 Total Bilirubin 0.4 mg/dL (0.15-1.2) 12/27/23 06:08 AST 37 U/L (0-32) H 12/27/23 06:08 ALT 48 U/L (0-33) H 12/27/23 06:08 Alkaline Phosphatase 163 U/L (35-105) H 12/27/23 06:08 Total Protein 7.2 g/dL (6.6-8.7) 12/27/23 06:08 Albumin 3.3 g/dL (3.5-5.2) L 12/27/23 06:08 Globulin 3.9 g/dL (1.3-4.6) 12/27/23 06:08 Lipase 18 U/L (13-60) 12/27/23 06:08 Random Cortisol 30.90 ug/dL (2.47-19.5) H 12/27/23 07:23 Hep Bs Antigen Non-reactive (Nonreactive) 12/27/23 06:08 Hep Bs Antibody 18.8 (11.5-1000) 12/27/23 06:08 Hep B Core Total Ab Non-reactive (Nonreactive) 12/27/23 06:08 Discharge Plan Discharge Patient Disposition: Admitted As Inpatient Admit Provider: Ruben Rust Clinical Impression: ESRD (end stage renal disease) Fluid overload Qualifiers: Hypervolemia type: unspecified Qualified Code(s): E87.70 - Fluid overload, unspecified Abdominal pain Qualifiers: Abdominal location: left upper quadrant Qualified Code(s): R10.12 - Left upper quadrant pain Condition: Stable Coding Level of Care Code ED Pc Network Technician for Reji Chandler
[2023-12-27] MEDS: ondansetron 4 MG Tablet PO (05:50)
[2023-12-27] MEDS: cloNIDine 0.1 mg Tablet PO (05:50)
[2023-12-27 06:12] LABS: Basophils # 0.1 10^3/uL (0.0-0.1); Basophils % 0.7 %; Eosinophils # 0.2 10^3/uL (0.0-0.8); Hematocrit 37.5 % (36-47); Lymphocytes # 0.6 10^3/uL (0.8-4.8); Lymphocytes % 7.5 %; Mean Corpuscular HGB Conc 30.4 g/dL (30-55); Mean Corpuscular Hemoglobin 27.9 pg (27-33); Mean Corpuscular Volume 91.9 fl (85-98); Mean Platelet Volume 11.2 fL (7.4-10.4); Monocytes # 0.2 10^3/uL (0.2-0.9); Monocytes % 2.6 %; Neutrophils # 6.96 10^3/uL (1.8-7.7); Nucleated Red Blood Cells % 0 %; Platelet Count 125 10^3/cmm (157-399); Red Blood Count 4.08 10^6/uL (3.85-5.65); Red Cell Distribution Width 16.1 % (12.1-15.1); White Blood Count 8.01 10^3/uL (3.29-11.43)
--- NOTE | 2023-12-27 06:17 | XRR_ITS ---
PROCEDURE INFORMATION: Exam: XR Chest Exam date and time: 12/27/2023 6:35 AM Age: 38 years old Clinical indication: Shortness of breath and other: Vomiting; Additional info: SOB TECHNIQUE: Imaging protocol: Radiologic exam of the chest. Views: 1 view. COMPARISON: CR (CHEST, ) 12/24/2023 10:33 PM FINDINGS: Tubes, catheters and devices: Multi lumen catheter enters from the right and terminates near the atrial caval junction. Lungs: Mild atelectasis or infiltrate in the left lower lobe with a possible small effusion. Pleural spaces: Unremarkable. No pleural effusion. No pneumothorax. Heart/Mediastinum: Unremarkable. No cardiomegaly. Bones/joints: Unremarkable. XR/XR chest 1V portable [id number] IMPRESSION: No significant change.
[2023-12-27 06:31] LABS: Alanine Aminotransferase 48 U/L (0-33); Albumin Level 3.3 g/dL (3.5-5.2); Alkaline Phosphatase 163 U/L (35-105); Aspartate Amino Transferase 37 U/L (0-32); Blood Urea Nitrogen 61 mg/dL (6-20); Calcium 8.4 mg/dL (8.5-10.5); Carbon Dioxide 16 mmol/L (22-29); Chloride 100 mmol/L (98-107); Creatinine Clr Calc Pharmacy 9.3365; Globulin 3.9 g/dL (1.3-4.6); Glomerular Filtration Rate 6.5 mL/min (90-130); Glucose 329 mg/dL (65-115); Magnesium 1.9 mg/dL (1.7-2.3); Osmolality Calculated 310 mOsm/kg (285-295); Phosphorus 7.4 mg/dL (2.5-4.5); Sodium 135 mmol/L (136-145); Total Bilirubin 0.4 mg/dL (0.15-1.2); Total Protein 7.2 g/dL (6.6-8.7)
[2023-12-27 06:32] LABS: Anion Gap 24.4 (5-19); Potassium 5.4 mmol/L (3.5-5.1)
--- NOTE | 2023-12-27 06:37 | CTR_ITS ---
PROCEDURE INFORMATION: Exam: CTA Chest With Contrast Exam date and time: 12/27/2023 7:41 AM Age: 38 years old Clinical indication: Abdominal pain; Generalized; Angina pectoris; Prior surgery; Surgery date: 6+ months; Surgery type: Lll lobectomy, dialysis catheter, gb; Additional info: SOB, abd pain TECHNIQUE: Imaging protocol: Computed tomographic angiography of the chest with contrast. Exam focused on the arteries. 3D rendering (Not supervised by radiologist): MIP and/or 3D reconstructed images were created by the technologist. Total images: 431 Radiation optimization: All CT scans at this facility use at least one of these dose optimization techniques: automated exposure control; mA and/or kV adjustment per patient size (includes targeted exams where dose is matched to clinical indication); or iterative reconstruction. Contrast material: OMNI 350; Contrast volume: 100 ml; Contrast route: INTRAVENOUS (IV); COMPARISON: CT chest [facility] [id number] 12/20/2023 2:21 PM RADIATION DOSE METRICS: Total DLP (mGy-cm): 888.95 FINDINGS: Tubes, catheters and devices: Right-sided hemodialysis catheter in satisfactory location. Pulmonary arteries: Normal. No pulmonary emboli. Aorta: Unremarkable. No aortic aneurysm. No aortic dissection. Lungs: Postsurgical changes posteriorly in the left hilum and extending along the medial aspect of the left lower lobe consistent with partial left lower lobectomy unchanged from prior exam. Focal area of pleural-based consolidation noted in this area unchanged. Small bilateral pleural effusions right greater than left with adjacent lung interstitial thickening similar to prior exam however there is increase in ground-glass opacities seen in the right upper and lower lobes suggesting increased edema and/or pneumonia. Pleural spaces: See Lungs finding. Heart: Unremarkable. No cardiomegaly. No pericardial effusion. Coronary arteries: Coronary stents noted. Lymph nodes: Numerous mildly enlarged mediastinal and right hilar lymph nodes similar to prior exam. Calcified mediastinal and hilar nodes noted. Bones/joints: Unremarkable. No acute fracture. Soft tissues: Unremarkable. PROCEDURE INFORMATION: Exam: CT Abdomen And Pelvis With Contrast Exam date and time: 12/27/2023 7:41 AM Age: 38 years old Clinical indication: Abdominal pain; Generalized; Angina pectoris; Prior surgery; Surgery date: 6+ months; Surgery type: Lll lobectomy, dialysis catheter, gb; Additional info: SOB, abd pain TECHNIQUE: Imaging protocol: Computed tomography of the abdomen and pelvis with contrast. Radiation optimization: All CT scans at this facility use at least one of these dose optimization techniques: automated exposure control; mA and/or kV adjustment per patient size (includes targeted exams where dose is matched to clinical indication); or iterative reconstruction. Contrast material: OMNI 350; Contrast volume: 100 ml; Contrast route: INTRAVENOUS (IV); COMPARISON: CT abdomen pelvis w con* [id number] 06/25/2022 2:36 PM RADIATION DOSE METRICS: Total DLP (mGy-cm): 888.95 FINDINGS: Liver: Normal. No mass. Gallbladder and biliary ducts: Prior cholecystectomy noted. Pancreas: Normal. No ductal dilation. Spleen: Incidental splenic granulomata are noted. Adrenal glands: Normal. No mass. Kidneys and ureters: Normal. No hydronephrosis. Stomach and bowel: Rectosigmoid colon wall thickening without adjacent fatty stranding most likely secondary to incomplete distension but colitis could give a similar appearance. Appendix: No evidence of appendicitis. Intraperitoneal space: Unremarkable. No free air. No significant fluid collection. Vasculature: Incidental phleboliths noted. Lymph nodes: Unremarkable. No enlarged lymph nodes. Urinary bladder: There is nonspecific urinary bladder wall thickening, under distention versus cystitis. Reproductive: Unremarkable as visualized. Bones/joints: Unremarkable. No acute fracture. Soft tissues: Body wall edema noted. Other findings: Mild atherosclerotic disease burden is evident. CT/CT angio chest w abd pel w con IMPRESSION: 1. Numerous mildly enlarged mediastinal and right hilar lymph nodes similar to prior exam. 2. Postsurgical changes posteriorly in the left hilum and extending along the medial aspect of the left lower lobe consistent with partial left lower lobectomy unchanged from prior exam. Focal area of pleural-based consolidation noted in this area unchanged. 3. Small bilateral pleural effusions right greater than left with adjacent lung interstitial thickening similar to prior exam however there is increase in ground-glass opacities seen in the right upper and lower lobes suggesting increased edema and/or pneumonia. IMPRESSION: 1. There is nonspecific urinary bladder wall thickening, under distention versus cystitis. 2. Rectosigmoid colon wall thickening without adjacent fatty stranding most likely secondary to incomplete distension but colitis could give a similar appearance.
[2023-12-27] MEDS: iohexol 350 mg/mL 500 mL Btl (per mL) IV (07:57)
--- NOTE | 2023-12-27 08:03 | PC.PHAR ---
SPOKE WITH TRACEE (MOTHER) WHO VERIFIED PT MEDICATIONS. PT NO LONGER TAKING PLAVIX 75MG DUE TO CHANGED TO BRILINTA 90MG TWICE DAILY. OTHER NEW MEDS ARE GABAPENTIN 100MG 3 TIMES DAILY AND LEXAPRO 10 MGDAILY.
[2023-12-27] MEDS: ondansetron 2 mg/ML SDV 2 mL 4 MG IVP ×2 (08:05→21:12)
[2023-12-27] MEDS: fentaNYL 50 mcg/mL INJ 2mL IVP (08:13)
--- NOTE | 2023-12-27 10:23 | P.HP_ITS ---
Providers/Chief Complaint 2 Admitting Physician: Ruben Rust MD, hospitalist Primary Care Provider: SUZANNE Dias Chief Complaint: SOB,Swollen legs History of Present Illness Donita Aguilar is a 38 year old female who presents to the emergency department with swelling in her lower extremities, shortness of breath especially when she lies down. She has not had any chest discomfort. While in the emergency department she developed some abdominal pain, vomiting and diarrhea. Father who is present with her, reports that she did quite well yesterday, went shopping, and had a big meal. She skipped dialysis Saturday, by report that she was too tired after an ER visit. No history of fever. Patient does not supplement her history much as she is just received fentanyl, and closes her eyes frequently. Her most recent hospitalization was just 1 month ago, where she received an LAD stent. At that time she had some issues with hypoglycemia with just sliding scale. Insulin was discontinued at that time. Father indicates she got diabetes, with her first so she is unlikely to be type I as written in her chart. Last EF was 50 to 55% with an echo done last month. Review of Systems 2 General: Reports: 10 or more systems reviewed and unremarkable except in HPI and below Medications/Allergies Home Medications Medication Instructions Recorded Confirmed Last Taken Type blood-glucose meter,continuous #1 ea 06/12/22 12/27/23 Unknown Rx (Dexcom G6 Echocardiograph Technician) blood-glucose sensor (Dexcom G6 #3 ea 06/12/22 12/27/23 Unknown Rx Sensor device) blood-glucose transmitter (Dexcom #1 ea 06/12/22 12/27/23 Unknown Rx G6 Transmitter device) fluticasone furoate 100 1 inh inhalation DAILY PRN 09/14/23 12/27/23 09/20/23 History mcg-vilanterol 25 mcg/dose Shortness Of Breath inhalation powder (Breo Ellipta) nitroglycerin 0.4 mg sublingual 0.4 mg sublingual Q5M PRN Chest 09/14/23 12/27/23 Unknown History tablet (Nitrostat) Pain sevelamer carbonate 800 mg tablet 800 mg PO TID #90 tabs 09/16/23 12/27/23 12/26/23 Rx atorvastatin 40 mg tablet 40 mg PO BEDTIME 11/27/23 12/27/23 12/26/23 History carvedilol 12.5 mg tablet 12.5 mg PO BID 11/27/23 12/27/23 12/26/23 History clonidine HCl 0.1 mg tablet See Rx Instructions .Route 11/27/23 12/27/23 Unknown History .COMPLEX PRN Blood Pressure lisinopril 40 mg tablet 40 mg PO BEDTIME 11/27/23 12/27/23 12/26/23 History ticagrelor 90 mg tablet (Brilinta) 90 mg PO BID #60 tabs 11/29/23 12/27/23 12/26/23 Rx aspirin 81 mg tablet,delayed 81 mg PO QAM 12/20/23 12/27/23 12/26/23 History release escitalopram oxalate 10 mg tablet 10 mg PO DAILY 12/27/23 12/27/23 12/26/23 History (Lexapro) gabapentin 100 mg capsule 100 mg PO TID 12/27/23 12/27/23 12/26/23 History Allergies Allergy/AdvReac Type Severity Reaction Status Date / Time acetaminophen AdvReac Mild ADR-Gastrointestinal Verified 11/19/23 07:40 Upset PFSH Acute 2 PFSH: Medical History Hyperlipidemia HTN (hypertension) Intractable nausea and vomiting Diabetic gastroparesis Acute cystitis with hematuria CKD (chronic kidney disease) stage 3, GFR 30-59 ml/min ERICA (acute kidney injury) CHF (congestive heart failure), NYHA class III Pulmonary hypertension CAD (coronary artery disease) Neurogenic bladder Acute kidney injury superimposed on chronic kidney disease Metabolic acidosis COVID-19 Tobacco dependence Drug abuse Anemia Community acquired pneumonia Acute hyperglycemia Esophagitis Complicated UTI (urinary tract infection) Transaminitis Long-term insulin use History of pancreatitis Celiac disease Recurrent UTI Non-alcoholic fatty liver disease Arnold-Chiari malformation Diabetic gastroparesis -continue Reglan Diabetic neuropathy associated with type 1 diabetes mellitus Headache, common migraine, intractable, with status migrainosus Cystitis Pleural effusion 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 Uncontrolled type 1 diabetes mellitus Lymphadenitis Ureterolithiasis Pyelonephritis PID (pelvic inflammatory disease) Anxiety Sepsis Respiratory failure Pancreatitis DKA (diabetic ketoacidoses) Migraine headache Chronic headache Surgical History History of lung surgery -s/p LLL lobectomy secondary to cavitary pneumonia (2017) History of endoscopy History of cholecystectomy Family History Grandfather Diabetes Other Heart disease Hypertension Social History Smoking and tobacco/nicotine status: never used tobacco/nicotine Second hand smoke exposure: Yes Alcohol intake: never Substance/Drug Use: current Household members: children Housing: House Marital status: Single Current occupational status: unemployed Vitals/I&O/Wt Last Vital Signs Temp 97.8 F 12/27/23 04:13 Pulse 91 12/27/23 10:05 Resp 17 12/27/23 10:05 BP 205/123 12/27/23 10:05 Pulse Ox 96 12/27/23 10:05 O2 Del Method Nasal Cannula 12/27/23 10:05 O2 Flow Rate 3 12/27/23 08:33 Weight last 48 hrs Weight 68.039 kg Physical Exam 2 Narrative: General exam is a white female, intermittently closing her eyes. She reports some abdominal pain. From my understanding she had some significant diarrhea, and an episode of vomiting prompting the emergency department physician to do a CT scan. Father indicates abdominal pain and vomiting have occurred before when dialysis was indicated. HEENT: Atraumatic normocephalic. Oropharynx clear but some dried emesis noted on lips. No evidence of blood Neck is supple Cardiovascular regular rate and rhythm without murmur Lungs clear Abdomen demonstrates a few bowel sounds. Nondistended. Soft. exams deferred Extremities 1+ to 2+ edema bilaterally. Skin no rash Neuro no focal deficits Data 12/27/23 06:08 12/27/23 06:08 Other Labs: LFTs with mild elevation with AST of 37 and ALT of 48. Alk phos is 163. Bilirubin level is normal. Previous hepatitis panel negative. Calcium 8.4, phosphorus 7.4 Albumin 3.3 Urinalysis has been ordered Chest x-ray reviewed by me demonstrates dialysis catheter, right IJ. No obvious infiltrate CT chest abdomen pelvis with contrast demonstrates some enlarged lymph nodes in the right similar to prior exam, postsurgical changes left hilum consistent with partial left lobectomy in the past. Small bilateral pleural effusions. Some interstitial edema consistent with fluid overload. EKG reviewed by me demonstrates normal sinus rhythm, normal axis, nonspecific ST-T wave changes A&P Assessment and plan (1) Fluid overload: Patient presents with significant fluid overload. This is likely from her missing hemodialysis. From talking to her father, she sometimes gets dialysis on Saturday, and missed Saturday. He also reports she sometimes will get it on Saturday when not enough fluid is removed. Nephrology consult Likely hemodialysis today Observation currently. Repeat her laboratory tomorrow morning (2) End stage renal disease on dialysis: Consult nephrology, see above (3) Abdominal pain: Patient had onset of abdominal pain in the emergency department, with vomiting and diarrhea Differential diagnosis is large and could include uremia, viral illness, pancreatitis, UTI. Doubt DKA. Father also do note she has abdominal pain sometimes when renal failure is worse At this point observe for recurrence, Dilaudid for pain, Zofran for nausea. Check lipase, urinalysis Further evaluation is warranted by clinical course. This could include stool cultures and other laboratory investigation. I do not believe she has had recent antibiotics. Note that CT abdomen pelvis with contrast was unrevealing Qualifiers: Abdominal location: left upper quadrant Qualified Code(s): R10.12 - Left upper quadrant pain (4) COPD (chronic obstructive pulmonary disease): Patient with history of underlying COPD Budesonide twice daily DuoNeb every 6 hours (5) Diabetes mellitus: Patient with history of diabetes, developed during her and then requiring insulin at some point after that. I do not think it is likely she is type I. She was taken off her insulin products 1 month ago and had not had any hospital visits for DKA. When in the hospital previously she had a significant amount of lability of blood sugar and was hypoglycemic when given a sliding scale I will have Accu-Cheks done before every meal and at bedtime, and nursing is to call me if blood sugars greater than 250 and action will be taken to cautiously give subcutaneous insulin short acting. Check hemoglobin A1c, TSH, cortisol level Consistent carb diet when initiated Plan Coronary artery disease with recent stenting of RCA. No chest discomfort on presentation. EKG benign. Will ensure she gets her Brilinta, aspirin and other cardiac medications this morning. Multiple other medical problems as outlined in past medical history Full code Heparin for DVT prophylaxis. Attestations 2 Medical Necessity Statement*: Will need less than 2 midnight stay for evaluation and treatment of fluid overload associated with not getting outpatient dialysis. Diagnoses Fluid overload E87.70 End stage renal disease on dialysis N18.6; Z99.2 Abdominal pain R10.12 Abdominal location: left upper quadrant COPD (chronic obstructive pulmonary disease) J44.9 Diabetes mellitus E11.9 Time Spent (min) 47
[2023-12-27 11:00] LABS: Lipase 18 U/L (13-60)
[2023-12-27] MEDS: carvedilol 12.5 mg Tablet PO ×2 (13:18→19:46)
[2023-12-27] MEDS: ticagrelor 90 mg Tablet PO ×2 (13:18→19:46)
[2023-12-27] MEDS: HYDROmorphone 1 mg/mL INJ 1 mL 0.4 MG IVP ×2 (14:20→21:17)
[2023-12-27] MEDS: heparin 5,000 unit/mL INJ 1 mL 5000 UNIT SUBCUT (14:23)
[2023-12-27] MEDS: sevelamer 800 mg Tablet PO ×2 (14:25→21:07)
[2023-12-27] MEDS: pantoprazole 40 mg SDV IVP (14:25)
[2023-12-27] MEDS: gabapentin 100 mg Capsule PO ×2 (14:25→21:07)
[2023-12-27] MEDS: hyDRALAzine 20 mg/mL INJ 1 mL 10 MG IVP (14:45)
[2023-12-27 15:39] LABS: Hepatitis B Core AB, Total Non-Reactive (Nonreactive); Hepatitis B Surface AB 18.8 (11.5-1000); Hepatitis B Surface Antigen Non-Reactive (Nonreactive)
--- NOTE | 2023-12-27 15:40 | PC.HD ---
Electronic consent for hemodialysis signed by patient; copy in chart. Heparin 1000 units loading dose administered via arterial port of HD catheter per drivers' cash clerk's orders.
[2023-12-27 17:47] LABS: Glucose Point of Care 115 mg/dL (70-110)
--- NOTE | 2023-12-27 19:22 | P.CONIM_ITS ---
Providers/Reason For Consult 2 Consulting Physician/Specialty*: [facility]/Nephrology Reason for Consult*: ESRD Attending Physician: Ruben Rust MD Primary Care Provider: SUZANNE Dias History of Present Illness History of Present Illness Donita Aguilar is a 38 year old female 38-year-old female with past medical history of hypertension, diabetes, dyslipidemia, end-stage renal disease on dialysis, pulmonary hypertension, coronary artery disease presented to the emergency department due to shortness of breath, swelling in bilateral lower extremities. Also complained of vomiting and diarrhea and abdominal pain. Last dialysis was on Saturday. Lab data is significant for potassium of 5.4 CO2 16. Blood pressures were elevated to 205/123 initially in the ED. Currently on 3 L nasal cannula. 1. End-stage renal disease: On MWF schedule, patient missed HD on Saturday, plan for HD today and ultrafiltration as tolerated Placed on renal diet, 2 g sodium restriction 1500 mill fluid restriction 2. Hyperkalemia: Low K diet and HD as above 3. Metabolic acidosis: Should improve with HD 4. History of hypertension: Blood pressure elevated, resume home medications 5. Anemia: Monitor Patient evaluated using audiovisual cart. Time spent 40 minutes. Review of Systems 2 Narrative: Other ROS negative Medications/Allergies Home Medications Medication Instructions Recorded Confirmed Last Taken Type blood-glucose meter,continuous #1 ea 06/12/22 12/27/23 Unknown Rx (Dexcom G6 Bilingual Kindergarten Teacher) blood-glucose sensor (Dexcom G6 #3 ea 06/12/22 12/27/23 Unknown Rx Sensor device) blood-glucose transmitter (Dexcom #1 ea 06/12/22 12/27/23 Unknown Rx G6 Transmitter device) fluticasone furoate 100 1 inh inhalation DAILY PRN 09/14/23 12/27/23 09/20/23 History mcg-vilanterol 25 mcg/dose Shortness Of Breath inhalation powder (Breo Ellipta) nitroglycerin 0.4 mg sublingual 0.4 mg sublingual Q5M PRN Chest 09/14/23 12/27/23 Unknown History tablet (Nitrostat) Pain sevelamer carbonate 800 mg tablet 800 mg PO TID #90 tabs 09/16/23 12/27/23 12/26/23 Rx atorvastatin 40 mg tablet 40 mg PO BEDTIME 11/27/23 12/27/23 12/26/23 History carvedilol 12.5 mg tablet 12.5 mg PO BID 11/27/23 12/27/23 12/26/23 History clonidine HCl 0.1 mg tablet See Rx Instructions .Route 11/27/23 12/27/23 Unknown History .COMPLEX PRN Blood Pressure lisinopril 40 mg tablet 40 mg PO BEDTIME 11/27/23 12/27/23 12/26/23 History ticagrelor 90 mg tablet (Brilinta) 90 mg PO BID #60 tabs 11/29/23 12/27/23 12/26/23 Rx aspirin 81 mg tablet,delayed 81 mg PO QAM 12/20/23 12/27/23 12/26/23 History release escitalopram oxalate 10 mg tablet 10 mg PO DAILY 12/27/23 12/27/23 12/26/23 History (Lexapro) gabapentin 100 mg capsule 100 mg PO TID 12/27/23 12/27/23 12/26/23 History Allergies Allergy/AdvReac Type Severity Reaction Status Date / Time acetaminophen AdvReac Mild ADR-Gastrointestinal Verified 11/19/23 07:40 Upset Current Medications Generic Name Dose Route Start Last Admin Trade Name Freq PRN Reason Stop Dose Admin Albuterol/Ipratropium 3 ml 12/27/23 14:00 12/27/23 14:01 Ipratropium-Albuterol 3 Ml Neb INHALATION 3 ml Q6H.RESP SHAY Administration Carvedilol 12.5 mg 12/27/23 13:09 12/27/23 13:18 Carvedilol 12.5 Mg Tablet PO 12.5 mg BID SHAY Administration Gabapentin 100 mg 12/27/23 15:00 12/27/23 14:25 Gabapentin 100 Mg Capsule PO 100 mg TID SHAY Administration Heparin Sodium (Porcine) 5,000 unit 12/27/23 13:09 12/27/23 14:23 Heparin 5,000 Unit/Ml Inj 1 Ml SUBCUT 5,000 unit Q12H SHAY Administration Hydralazine HCl 10 mg 12/27/23 14:12 12/27/23 14:45 Hydralazine 20 Mg/Ml Inj 1 Ml IVP 10 mg Q4H PRN Administration HYPERTENSION Hydromorphone HCl 0.4 mg 12/27/23 13:09 12/27/23 14:20 Hydromorphone 1 Mg/Ml Inj 1 Ml IVP 0.4 mg Q4H PRN Administration PAIN Pantoprazole Sodium 40 mg 12/27/23 13:09 12/27/23 14:25 Pantoprazole 40 Mg Sdv IVP 40 mg Q12H SHAY Administration Sevelamer Carbonate 800 mg 12/27/23 15:00 12/27/23 14:25 Sevelamer 800 Mg Tablet PO 800 mg TID SHAY Administration Ticagrelor 90 mg 12/27/23 13:09 12/27/23 13:18 Ticagrelor 90 Mg Tablet PO 90 mg BID SHAY Administration PFSH Acute 2 PFSH: Medical History Hyperlipidemia HTN (hypertension) Intractable nausea and vomiting Diabetic gastroparesis Acute cystitis with hematuria CKD (chronic kidney disease) stage 3, GFR 30-59 ml/min ERICA (acute kidney injury) CHF (congestive heart failure), NYHA class III Pulmonary hypertension CAD (coronary artery disease) Neurogenic bladder Acute kidney injury superimposed on chronic kidney disease Metabolic acidosis COVID-19 Tobacco dependence Drug abuse Anemia Community acquired pneumonia Acute hyperglycemia Esophagitis Complicated UTI (urinary tract infection) Transaminitis Long-term insulin use History of pancreatitis Celiac disease Recurrent UTI Non-alcoholic fatty liver disease Arnold-Chiari malformation Diabetic gastroparesis -continue Reglan Diabetic neuropathy associated with type 1 diabetes mellitus Headache, common migraine, intractable, with status migrainosus Cystitis Pleural effusion 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 Uncontrolled type 1 diabetes mellitus Lymphadenitis Ureterolithiasis Pyelonephritis PID (pelvic inflammatory disease) Anxiety Sepsis Respiratory failure Pancreatitis DKA (diabetic ketoacidoses) Migraine headache Chronic headache Surgical History History of lung surgery -s/p LLL lobectomy secondary to cavitary pneumonia (2017) History of endoscopy History of cholecystectomy Family History Grandfather Diabetes Other Heart disease Hypertension Social History Smoking and tobacco/nicotine status: never used tobacco/nicotine Second hand smoke exposure: Yes Alcohol intake: never Substance/Drug Use: current Household members: children Housing: House Marital status: Single Current occupational status: unemployed Vitals/I&O/Wt Last Vital Signs Temp 98.1 F 12/27/23 18:23 Pulse 84 12/27/23 18:23 Resp 18 12/27/23 18:23 BP 207/116 12/27/23 18:23 Pulse Ox 95 12/27/23 14:00 O2 Del Method Nasal Cannula 12/27/23 14:00 O2 Flow Rate 3 12/27/23 14:00 12/27/23 12/27/23 12/27/23 06:59 14:59 22:59 Intake Total 300 / 300 Output Total 3300 / 3300 Balance -3000 / -3000 Weight last 48 hrs Weight 57.4 kg Weight 68.039 kg Physical Exam 2 Narrative: Awake, alert, no distress HEENT S1-S2 regular rate and rhythm per report Lungs clear per report + LE edema Data 12/27/23 06:08 12/27/23 06:08 A&P Assessment and plan (1) End stage renal disease on dialysis: Plan 1. End-stage renal disease: On MWF schedule, patient missed HD on Saturday, plan for HD today and ultrafiltration as tolerated Placed on renal diet, 2 g sodium restriction 1500 mill fluid restriction 2. Hyperkalemia: Low K diet and HD as above 3. Metabolic acidosis: Should improve with HD 4. History of hypertension: Blood pressure elevated, resume home medications 5. Anemia: Monitor Patient evaluated using audiovisual cart. Time spent 40 minutes. Consult Attestations 2 Medical Necessity Statement: per wilson Coding Level of Care Code Acute Code for Chg Fwd Diagnoses End stage renal disease on dialysis N18.6; Z99.2
--- NOTE | 2023-12-27 19:29 | P.CONIM_ITS ---
Providers/Reason For Consult 2 Consulting Physician/Specialty*: [facility]Nephrology Reason for Consult*: ESRD Attending Physician: Ruben Rust MD Primary Care Provider: SUZANNE Dias History of Present Illness History of Present Illness Donita Aguilar is a 38 year old female Medications/Allergies Home Medications Medication Instructions Recorded Confirmed Last Taken Type blood-glucose meter,continuous #1 ea 06/12/22 12/27/23 Unknown Rx (Dexcom G6 Automotive Lube Technician) blood-glucose sensor (Dexcom G6 #3 ea 06/12/22 12/27/23 Unknown Rx Sensor device) blood-glucose transmitter (Dexcom #1 ea 06/12/22 12/27/23 Unknown Rx G6 Transmitter device) fluticasone furoate 100 1 inh inhalation DAILY PRN 09/14/23 12/27/23 09/20/23 History mcg-vilanterol 25 mcg/dose Shortness Of Breath inhalation powder (Breo Ellipta) nitroglycerin 0.4 mg sublingual 0.4 mg sublingual Q5M PRN Chest 09/14/23 12/27/23 Unknown History tablet (Nitrostat) Pain sevelamer carbonate 800 mg tablet 800 mg PO TID #90 tabs 09/16/23 12/27/23 12/26/23 Rx atorvastatin 40 mg tablet 40 mg PO BEDTIME 11/27/23 12/27/23 12/26/23 History carvedilol 12.5 mg tablet 12.5 mg PO BID 11/27/23 12/27/23 12/26/23 History clonidine HCl 0.1 mg tablet See Rx Instructions .Route 11/27/23 12/27/23 Unknown History .COMPLEX PRN Blood Pressure lisinopril 40 mg tablet 40 mg PO BEDTIME 11/27/23 12/27/23 12/26/23 History ticagrelor 90 mg tablet (Brilinta) 90 mg PO BID #60 tabs 11/29/23 12/27/23 12/26/23 Rx aspirin 81 mg tablet,delayed 81 mg PO QAM 12/20/23 12/27/23 12/26/23 History release escitalopram oxalate 10 mg tablet 10 mg PO DAILY 12/27/23 12/27/23 12/26/23 History (Lexapro) gabapentin 100 mg capsule 100 mg PO TID 12/27/23 12/27/23 12/26/23 History Allergies Allergy/AdvReac Type Severity Reaction Status Date / Time acetaminophen AdvReac Mild ADR-Gastrointestinal Verified 11/19/23 07:40 Upset Current Medications Generic Name Dose Route Start Last Admin Trade Name Freq PRN Reason Stop Dose Admin Albuterol/Ipratropium 3 ml 12/27/23 14:00 12/27/23 14:01 Ipratropium-Albuterol 3 Ml Neb INHALATION 3 ml Q6H.RESP SHAY Administration Carvedilol 12.5 mg 12/27/23 13:12/27/23 13:18 Carvedilol 12.5 Mg Tablet PO 12.5 mg BID SHAY Administration Gabapentin 100 mg 12/27/23 15:00 12/27/23 14:25 Gabapentin 100 Mg Capsule PO 100 mg TID SHAY Administration Heparin Sodium (Porcine) 5,000 unit 12/27/23 13:09 12/27/23 14:23 Heparin 5,000 Unit/Ml Inj 1 Ml SUBCUT 5,000 unit Q12H SHAY Administration Hydralazine HCl 10 mg 12/27/23 14:12 12/27/23 14:45 Hydralazine 20 Mg/Ml Inj 1 Ml IVP 10 mg Q4H PRN Administration HYPERTENSION Hydromorphone HCl 0.4 mg 12/27/23 13:09 12/27/23 14:20 Hydromorphone 1 Mg/Ml Inj 1 Ml IVP 0.4 mg Q4H PRN Administration PAIN Pantoprazole Sodium 40 mg 12/27/23 13:09 12/27/23 14:25 Pantoprazole 40 Mg Sdv IVP 40 mg Q12H SHAY Administration Sevelamer Carbonate 800 mg 12/27/23 15:00 12/27/23 14:25 Sevelamer 800 Mg Tablet PO 800 mg TID SHAY Administration Ticagrelor 90 mg 12/27/23 13:09 12/27/23 13:18 Ticagrelor 90 Mg Tablet PO 90 mg BID SHAY Administration PFSH Acute 2 PFSH: Medical History Hyperlipidemia HTN (hypertension) Intractable nausea and vomiting Diabetic gastroparesis Acute cystitis with hematuria CKD (chronic kidney disease) stage 3, GFR 30-59 ml/min ERICA (acute kidney injury) CHF (congestive heart failure), NYHA class III Pulmonary hypertension CAD (coronary artery disease) Neurogenic bladder Acute kidney injury superimposed on chronic kidney disease Metabolic acidosis COVID-19 Tobacco dependence Drug abuse Anemia Community acquired pneumonia Acute hyperglycemia Esophagitis Complicated UTI (urinary tract infection) Transaminitis Long-term insulin use History of pancreatitis Celiac disease Recurrent UTI Non-alcoholic fatty liver disease Arnold-Chiari malformation Diabetic gastroparesis -continue Reglan Diabetic neuropathy associated with type 1 diabetes mellitus Headache, common migraine, intractable, with status migrainosus Cystitis Pleural effusion 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 Uncontrolled type 1 diabetes mellitus Lymphadenitis Ureterolithiasis Pyelonephritis PID (pelvic inflammatory disease) Anxiety Sepsis Respiratory failure Pancreatitis DKA (diabetic ketoacidoses) Migraine headache Chronic headache Surgical History History of lung surgery -s/p LLL lobectomy secondary to cavitary pneumonia (2017) History of endoscopy History of cholecystectomy Family History Grandfather Diabetes Other Heart disease Hypertension Social History Smoking and tobacco/nicotine status: never used tobacco/nicotine Second hand smoke exposure: Yes Alcohol intake: never Substance/Drug Use: current Household members: children Housing: House Marital status: Single Current occupational status: unemployed Vitals/I&O/Wt Last Vital Signs Temp 98.1 F 12/27/23 18:23 Pulse 84 12/27/23 18:23 Resp 18 12/27/23 18:23 BP 207/116 12/27/23 18:23 Pulse Ox 95 12/27/23 14:00 O2 Del Method Nasal Cannula 12/27/23 14:00 O2 Flow Rate 3 12/27/23 14:00 12/27/23 12/27/23 12/27/23 06:59 14:59 22:59 Intake Total 300 / 300 Output Total 3300 / 3300 Balance -3000 / -3000 Weight last 48 hrs Weight 57.4 kg Weight 68.039 kg Data 12/28/23 05:29 12/28/23 05:29 Coding Level of Care Code Acute Code for Chg Fwd
[2023-12-27] MEDS: lisinopril 20 mg Tablet 40 MG PO (21:07)
[2023-12-27] MEDS: atorvastatin 40 mg Tablet PO (21:07)
[2023-12-27 21:11] LABS: Glucose Point of Care 205 mg/dL (70-110)
[2023-12-28] VITALS (16 sets, daily range): BP systolic 149–199; BP diastolic 75–108; PULSE 70–95; RESP 14–20; TEMP 36.8–37.3; O2SAT 90–98; BMI 25.2
[2023-12-28] MEDS: pantoprazole 40 mg SDV IVP ×2 (01:14→13:19)
[2023-12-28] MEDS: heparin 5,000 unit/mL INJ 1 mL 5000 UNIT SUBCUT ×2 (01:14→13:17)
[2023-12-28] MEDS: HYDROmorphone 1 mg/mL INJ 1 mL 0.4 MG IVP ×4 (02:26→19:51)
[2023-12-28] MEDS: metoclopramide 5 mg/mL SDV 2 mL IVP ×2 (02:26→18:36)
[2023-12-28] MEDS: ondansetron 2 mg/ML SDV 2 mL 4 MG IVP ×3 (04:27→22:14)
[2023-12-28] MEDS: aspirin 81 mg EC Tablet PO (05:20)
[2023-12-28 06:11] LABS: Basophils % 0.3 %; Hematocrit 36.4 % (36-47); Lymphocytes % 14.7 %; Mean Corpuscular HGB Conc 30.5 g/dL (30-55); Mean Corpuscular Hemoglobin 27.8 pg (27-33); Mean Platelet Volume 11.3 fL (7.4-10.4); Monocytes # 0.5 10^3/uL (0.2-0.9); Monocytes % 7.1 %; Neutrophils # 4.99 10^3/uL (1.8-7.7); Neutrophils % 77.4 %; Nucleated Red Blood Cells % 0 %; Platelet Count 144 10^3/cmm (157-399); Red Cell Distribution Width 16.4 % (12.1-15.1); White Blood Count 6.45 10^3/uL (3.29-11.43)
[2023-12-28 06:29] LABS: Alanine Aminotransferase 82 U/L (0-33); Albumin Level 3.5 g/dL (3.5-5.2); Alkaline Phosphatase 172 U/L (35-105); Anion Gap 28.6 (5-19); Aspartate Amino Transferase 53 U/L (0-32); Blood Urea Nitrogen 44 mg/dL (6-20); Calcium 8.8 mg/dL (8.5-10.5); Carbon Dioxide 18 mmol/L (22-29); Chloride 95 mmol/L (98-107); Creatinine Clr Calc Pharmacy 12.5885; Globulin 3.8 g/dL (1.3-4.6); Glucose 254 mg/dL (65-115); Osmolality Calculated 304 mOsm/kg (285-295); Potassium 4.6 mmol/L (3.5-5.1); Sodium 137 mmol/L (136-145); Total Bilirubin 0.4 mg/dL (0.15-1.2); Total Protein 7.3 g/dL (6.6-8.7)
[2023-12-28 06:30] LABS: Glucose Point of Care 250 mg/dL (70-110)
[2023-12-28] MEDS: sevelamer 800 mg Tablet PO ×3 (08:18→20:52)
[2023-12-28] MEDS: escitalopram 10 mg Tablet PO (08:18)
[2023-12-28] MEDS: gabapentin 100 mg Capsule PO ×3 (08:18→20:52)
[2023-12-28] MEDS: ticagrelor 90 mg Tablet PO ×2 (08:18→17:00)
[2023-12-28] MEDS: carvedilol 12.5 mg Tablet PO ×2 (08:18→17:00)
[2023-12-28 09:10] LABS: ABG PCO2 35.4 mmHg (35-45); ABG PH Result 7.36 (7.35-7.45); Arterial Blood Gas Hematocrit 34.7 % (37-47); Base Excess ABG -4.7 mmol/L (-2.0-2.0); Blood Gas Allen Test Pos; Blood Gas Operator Identificat WALCI; Blood Gas Sample Site Radial, left; Blood Gas Sample Type Arterial; HCO3 ABG 20.1 mmol/L (22-26); Oxygen Device ROOM AIR; PO2 ABG 79.2 mmHg (80.0-100.0); PO2 FiO2 Ratio Arterial Blood 377
[2023-12-28 09:38] LABS: Gamma Glutamyl Transferase 43 U/L (5-36)
[2023-12-28 09:39] LABS: Alcohol Level < 10 mg/dL (0-10); Erythrocyte Sedimentation Rate 31 mm/hr (0-15)
[2023-12-28 09:43] LABS: Estmated Average Glucose 174; Hemoglobin A1C 7.7 % (4.0-6.0)
[2023-12-28 09:45] LABS: Procalcitonin 1.17 ng/mL (0-0.5)
--- NOTE | 2023-12-28 10:23 | P.PN_ITS ---
Subjective 2 Subjective: s/p HD yesterday Medications: Reviewed: Yes Vitals/I&O/Wt Last Vital Signs Temp 99.2 F 12/28/23 07:35 Pulse 90 12/28/23 08:07 Resp 18 12/28/23 08:18 BP 191/103 12/28/23 07:35 Pulse Ox 92 12/28/23 08:07 O2 Del Method Room Air 12/28/23 08:07 O2 Flow Rate 2 12/28/23 02:00 12/27/23 12/28/23 12/28/23 22:59 06:59 14:59 Intake Total 420 / 420 120 / 540 30 / 30 Output Total 3300 / 3300 0 / 3300 Balance -2880 / -2880 120 / -2760 30 / 30 Weight last 48 hrs Weight 58.57 kg Weight 57.4 kg Weight 68.039 kg Physical Exam 2 Narrative: Awake, alert, no distress HEENT S1-S2 regular rate and rhythm per report Lungs clear per report + LE edema Data 12/28/23 05:29 12/28/23 05:29 A&P Assessment and plan (1) End stage renal disease on dialysis: Plan 1. End-stage renal disease: On MWF schedule, patient missed HD on Saturday, s/p HD yesterday , next HD saturday , and ultrafiltration as tolerated Placed on renal diet, 2 g sodium restriction 1500 mill fluid restriction 2. Hyperkalemia: Low K diet and HD as above 3. Metabolic acidosis: Should improve with HD 4. History of hypertension: Blood pressure elevated, resume home medications 5. Anemia: Monitor Patient evaluated using audiovisual cart. Time spent 40 minutes. Attestations 2 Medical Necessity Statement*: per wilson Coding Level of Care Code Acute Code for Chg Fwd Diagnoses End stage renal disease on dialysis N18.6; Z99.2
[2023-12-28 11:07] LABS: Glucose Point of Care 286 mg/dL (70-110)
[2023-12-28] MEDS: piperacillin-tazobactam 3.375 GM in sodium chloride 0.9% (plus) 50 ML IV (13:14)
[2023-12-28] MEDS: insulin lispro 100 unit/1 mL SUBCUT ×2 (13:15→18:35)
[2023-12-28] MEDS: hyDRALAzine 25 mg Tablet PO ×2 (13:17→19:57)
[2023-12-28 13:27] LABS: Ketone (Acetest) Serum Negative (Negative)
--- NOTE | 2023-12-28 13:39 | PM.PN ---
Subjective Subjective: - Patient was examined the wound and closed she continues to have abdominal pain, feeling nauseous, reporting diarrhea, no fevers, no chills, does have a poor appetite she is worried about hypoglycemia she is not on insulin here but does report using a sliding scale insulin at home ? Ordered A1c 7.7 ? Blood sugar in the 280s, given her anion gap of 28, bicarb of 18, concerns for DKA, ketones ordered, ketones negative, ? Patient was transition to [facility], initially she refused insulin, off the sliding scale, agreed to 4 units of insulin ? Given her continued abdominal pain complaints, her nausea vomiting, I have started her on Zosyn as her CAT scan shows possible colitis ? She does have a history of diabetic gastroparesis, added Reglan -continue Dilaudid for pain control Vitals/I&O/Wt Last Vital Signs Temp 98.4 F 12/28/23 11:40 Pulse 79 12/28/23 11:40 Resp 17 12/28/23 11:40 BP 199/108 12/28/23 11:40 Pulse Ox 95 12/28/23 11:40 O2 Del Method Room Air 12/28/23 11:40 O2 Flow Rate 2 12/28/23 02:00 12/27/23 12/28/23 12/28/23 22:59 06:59 14:59 Intake Total 420 / 420 120 / 540 30 / 30 Output Total 3300 / 3300 0 / 3300 Balance -2880 / -2880 120 / -2760 30 / 30 Weight last 48 hrs Weight 58.57 kg Weight 57.4 kg Weight 68.039 kg Physical Exam Const: COMMON NORMALS: no acute distress and patient oriented x3 Resp: COMMON NORMALS: normal respiratory effort, No retractions, No use of accessory muscles and clear to auscultation bilaterally AUSCULTATION: clear to auscultation bilaterally Cardio: COMMON NORMALS: regular rate, regular rhythm, S1 normal heart sound present and S2 normal heart sound present RATE: regular rate RHYTHM: regular rhythm HEART SOUNDS: S1 normal heart sound present and S2 normal heart sound present GI: OTHER: Abdomen is soft, slightly distended, good bowel sounds, no guarding, no rigidity, does have diffuse tenderness Extremity: COMMON NORMALS: no pedal edema Neuro: COMMON NORMALS: patient oriented x3 Psych: COMMON NORMALS: mental status grossly normal Data 12/28/23 05:29 12/28/23 05:29 A&P Assessment and plan (1) Fluid overload: - Looks euvolemic Qualifiers: Hypervolemia type: unspecified Qualified Code(s): E87.70 - Fluid overload, unspecified (2) End stage renal disease on dialysis: Consult nephrology, see above (3) Abdominal pain: - Component of colitis - component of diabetic gastroparesis Qualifiers: Abdominal location: left upper quadrant Qualified Code(s): R10.12 - Left upper quadrant pain (4) COPD (chronic obstructive pulmonary disease): Patient with history of underlying COPD Budesonide twice daily DuoNeb every 6 hours (5) Diabetes mellitus: - No evidence of diabetic ketoacidosis ? A1c 7.7 ? Low-dose sliding scale (6) Colitis: 2. Rectosigmoid colon wall thickening without adjacent fatty stranding most likely secondary to incomplete distension but colitis could give a similar appearance. ? Plan ? Stool studies ? Serial abdominal exams ? Zosyn (7) Intractable nausea and vomiting: ? Could be a component of diabetic gastroparesis ? Continue Zofran ? Continue Reglan ? Clear liquids (8) Transaminitis: - Acute hep panel ? HIV Plan Coronary artery disease with recent stenting of RCA. No chest discomfort on presentation. EKG benign. Will ensure she gets her Brilinta, aspirin and other cardiac medications this morning. Multiple other medical problems as outlined in past medical history ? Ordered A1c 7.7 ? Blood sugar in the 280s, given her anion gap of 28, bicarb of 18, concerns for DKA, ketones ordered, ketones negative, ? Patient was transition to clears, initially she refused insulin, off the sliding scale, agreed to 4 units of insulin ? Given her continued abdominal pain complaints, her nausea vomiting, I have started her on Zosyn as her CAT scan shows possible colitis ? She does have a history of diabetic gastroparesis, added Reglan -continue Dilaudid for pain control ? Added HIV, hep panel Full code Heparin for DVT prophylaxis. Attestations Medical Necessity Statement*: Patient requires hospitalization for fluid overload, colitis, transaminitis, intractable nausea vomiting, abdominal pain Diagnoses Fluid overload E87.70 Hypervolemia type: unspecified End stage renal disease on dialysis N18.6; Z99.2 Abdominal pain R10.12 Abdominal location: left upper quadrant COPD (chronic obstructive pulmonary disease) J44.9 Diabetes mellitus E11.9 Colitis K52.9 Intractable nausea and vomiting R11.2 Transaminitis R74.01
[2023-12-28 13:47] LABS: Hepatitis A Antibody IgM Non-Reactive (Nonreactive); Hepatitis B Core IgM Non-Reactive (Nonreactive); Hepatitis B Surface Antigen Non-Reactive (Nonreactive); Hepatitis C Virus Antibody Non-Reactive (Nonreactive)
[2023-12-28 13:48] LABS: HIV 1 & 2 Antibody Non-Reactive (Non-Reactiv); HIV 1 & 2 Antigen Non-Reactive (Non-Reactiv)
[2023-12-28 17:02] LABS: Glucose Point of Care 286 mg/dL (70-110)
[2023-12-28] MEDS: budesonide 0.5 mg/2 mL Neb INHALATION (20:03)
[2023-12-28] MEDS: ipratropium-albuterol 3 mL Neb INHALATION (20:03)
[2023-12-28] MEDS: lisinopril 20 mg Tablet 40 MG PO (20:52)
[2023-12-28] MEDS: atorvastatin 40 mg Tablet PO (20:52)
[2023-12-28] MEDS: hyDRALAzine 20 mg/mL INJ 1 mL 10 MG IVP (22:08)
[2023-12-28 22:11] LABS: Glucose Point of Care 272 mg/dL (70-110)
[2023-12-29] VITALS (15 sets, daily range): BP systolic 150–190; BP diastolic 88–99; PULSE 61–73; RESP 15–20; TEMP 36.4–36.9; O2SAT 96–99
[2023-12-29] MEDS: heparin 5,000 unit/mL INJ 1 mL 5000 UNIT SUBCUT ×2 (00:48→12:52)
[2023-12-29] MEDS: pantoprazole 40 mg SDV IVP ×2 (00:48→12:51)
[2023-12-29] MEDS: piperacillin-tazobactam 3.375 GM in sodium chloride 0.9% (plus) 50 ML IV ×2 (00:48→12:50)
[2023-12-29] MEDS: HYDROmorphone 1 mg/mL INJ 1 mL 0.4 MG IVP ×2 (00:48→05:27)
[2023-12-29] MEDS: aspirin 81 mg EC Tablet PO (05:23)
[2023-12-29] MEDS: hyDRALAzine 25 mg Tablet PO ×3 (05:23→19:17)
[2023-12-29 06:03] LABS: Basophils % 0.4 %; Hematocrit 37.7 % (36-47); Lymphocytes % 14.5 %; Mean Corpuscular HGB Conc 31.6 g/dL (30-55); Mean Corpuscular Volume 88.7 fl (85-98); Mean Platelet Volume 11.3 fL (7.4-10.4); Monocytes # 0.4 10^3/uL (0.2-0.9); Monocytes % 6.1 %; Neutrophils # 5.57 10^3/uL (1.8-7.7); Neutrophils % 78.6 %; Nucleated Red Blood Cells % 0 %; Platelet Count 120 10^3/cmm (157-399); Red Blood Count 4.25 10^6/uL (3.85-5.65); Red Cell Distribution Width 16.1 % (12.1-15.1); White Blood Count 7.09 10^3/uL (3.29-11.43)
[2023-12-29 06:20] LABS: Alanine Aminotransferase 50 U/L (0-33); Albumin Level 3.6 g/dL (3.5-5.2); Alkaline Phosphatase 162 U/L (35-105); Anion Gap 26.4 (5-19); Aspartate Amino Transferase 20 U/L (0-32); Blood Urea Nitrogen 69 mg/dL (6-20); Calcium 8.1 mg/dL (8.5-10.5); Carbon Dioxide 20 mmol/L (22-29); Chloride 96 mmol/L (98-107); Globulin 3.6 g/dL (1.3-4.6); Glomerular Filtration Rate 7.2 mL/min (90-130); Glucose 347 mg/dL (65-115); Osmolality Calculated 318 mOsm/kg (285-295); Potassium 5.4 mmol/L (3.5-5.1); Sodium 137 mmol/L (136-145); Total Bilirubin 0.4 mg/dL (0.15-1.2); Total Protein 7.2 g/dL (6.6-8.7)
[2023-12-29 06:25] LABS: Creatinine Clr Calc Pharmacy 9.4898
[2023-12-29 06:34] LABS: Glucose Point of Care 364 mg/dL (70-110)
[2023-12-29 06:45] LABS: Procalcitonin 1.54 ng/mL (0-0.5)
[2023-12-29 07:10] LABS: NT Pro B Type Natriuretic Pept > 35000 pg/mL (0-125)
[2023-12-29] MEDS: ticagrelor 90 mg Tablet PO ×2 (08:07→17:04)
[2023-12-29] MEDS: insulin lispro 100 unit/1 mL SUBCUT ×2 (08:07→12:51)
[2023-12-29] MEDS: gabapentin 100 mg Capsule PO ×3 (08:07→20:19)
[2023-12-29] MEDS: escitalopram 10 mg Tablet PO (08:07)
[2023-12-29] MEDS: carvedilol 12.5 mg Tablet PO ×2 (08:07→17:04)
[2023-12-29] MEDS: sevelamer 800 mg Tablet PO ×2 (08:07→20:20)
[2023-12-29] MEDS: metoclopramide 5 mg/mL SDV 2 mL IVP (08:08)
--- NOTE | 2023-12-29 08:39 | P.PN_ITS ---
Subjective 2 Subjective: The patient was seen and examined. Patient denies shortness of breath but has significant abdominal pain. She is weak and not eating well. And has nausea. Medications: Reviewed: Yes Medication Review Details: Current Medications Acetaminophen (Acetaminophen 325 Mg Tablet) 650 mg PO Q6H PRN PRN Reason: Mild/Mod Pain Or Temp >/= 101 Albuterol/Ipratropium (Ipratropium-Albuterol 3 Ml Neb) 3 ml INHALATION Q6H.RESP [facility] Last Admin: 12/29/23 01:14 Dose: Not Given Aspirin (Aspirin 81 Mg Ec Tablet) 81 mg PO QAM [facility] Last Admin: 12/29/23 05:23 Dose: 81 mg Atorvastatin Calcium (Atorvastatin 40 Mg Tablet) 40 mg PO BEDTIME [facility] Last Admin: 12/28/23 20:52 Dose: 40 mg Budesonide (Budesonide 0.5 Mg/2 Ml Neb) 0.5 mg INHALATION BID.RESPIRATORY [facility] Last Admin: 12/28/23 20:03 Dose: 0.5 mg Carvedilol (Carvedilol 12.5 Mg Tablet) 12.5 mg PO BID [facility] Last Admin: 12/29/23 08:07 Dose: 12.5 mg Escitalopram Oxalate (Escitalopram 10 Mg Tablet) 10 mg PO DAILY [facility] Last Admin: 12/29/23 08:07 Dose: 10 mg Gabapentin (Gabapentin 100 Mg Capsule) 100 mg PO TID [facility] Last Admin: 12/29/23 08:07 Dose: 100 mg Glucagon (Glucagon 1 Mg/Ml Kit 1 Ml) 1 mg IM ONCE PRN; Protocol PRN Reason: Adult Acute Hypoglycemia Nursing Prot. Heparin Sodium (Porcine) (Heparin 5,000 Unit/Ml Inj 1 Ml) 5,000 unit SUBCUT Q12H [facility] Last Admin: 12/29/23 00:48 Dose: 5,000 unit Hydralazine HCl (Hydralazine 20 Mg/Ml Inj 1 Ml) 10 mg IVP Q4H PRN PRN Reason: HYPERTENSION Last Admin: 12/28/23 22:08 Dose: 10 mg Hydralazine HCl (Hydralazine 25 Mg Tablet) 25 mg PO Q8H [facility] Last Admin: 12/29/23 05:23 Dose: 25 mg Hydromorphone HCl (Hydromorphone 1 Mg/Ml Inj 1 Ml) 0.4 mg IVP Q4H PRN PRN Reason: PAIN Last Admin: 12/29/23 05:27 Dose: 0.4 mg Sodium Chloride (Sodium Chloride 0.9%) 1,000 mls @ 0 mls/hr IV .Q0M PRN PRN Reason: hypotension or symptomatic Albumin Human (Albumin) 12.5 gm in 50 mls @ 60 mls/hr IV PRN PRN PRN Reason: Hypotension and/or symptomatic Piperacillin Sod/Tazobactam (Sod 3.375 gm/ Sodium Chloride) 50 mls @ 12.5 mls/hr IV Q12H [facility]; Protocol Last Infusion: 12/29/23 04:44 Dose: Infused Dextrose (D5w) 500 mls @ 0 mls/hr IV ONCE PRN; Protocol PRN Reason: Adult Acute Hypoglycemia Prot Dextrose (D10w) 125 mls @ 750 mls/hr IV PRN PRN; Protocol PRN Reason: Adult Acute Hypoglycemia Nursing Protocol Dextrose (D10w) 250 mls @ 1,000 mls/hr IV PRN PRN; Protocol PRN Reason: Adult Acute Hypoglycemia Nursing Protocol Insulin Glargine (Insulin Glargine 100 Units/1 Ml) 10 unit SUBCUT ONCE ONE Stop: 12/29/23 08:37 Insulin Human Lispro (Insulin Lispro 100 Unit/1 Ml) 0 unit SUBCUT TIDWM [facility]; Protocol Last Admin: 12/29/23 08:07 Dose: 12 unit Lisinopril (Lisinopril 20 Mg Tablet) 40 mg PO BEDTIME [facility] Last Admin: 12/28/23 20:52 Dose: 40 mg Metoclopramide HCl (Metoclopramide 5 Mg/Ml Sdv 2 Ml) 5 mg IVP Q6H PRN PRN Reason: NAUSEA AND VOMITING Last Admin: 12/29/23 08:08 Dose: 5 mg Naloxone HCl (Naloxone 0.4 Mg/Ml Sdv) 0.1 mg IVP Q2M PRN PRN Reason: RESPIRATORY RATE < 8/MIN Ondansetron HCl (Ondansetron 2 Mg/Ml Sdv 2 Ml) 4 mg IVP Q6H PRN PRN Reason: vomiting, or N/V if npo Last Admin: 12/28/23 22:14 Dose: 4 mg Pantoprazole Sodium (Pantoprazole 40 Mg Sdv) 40 mg IVP Q12H [facility] Last Admin: 12/29/23 00:48 Dose: 40 mg Sevelamer Carbonate (Sevelamer 800 Mg Tablet) 800 mg PO TID [facility] Last Admin: 12/29/23 08:07 Dose: 800 mg Ticagrelor (Ticagrelor 90 Mg Tablet) 90 mg PO BID [facility] Last Admin: 12/29/23 08:07 Dose: 90 mg Vitals/I&O/Wt Last Vital Signs Temp 98.4 F 12/29/23 04:15 Pulse 73 12/29/23 06:00 Resp 18 12/29/23 05:27 BP 170/90 12/29/23 07:39 Pulse Ox 98 12/29/23 04:15 O2 Del Method Room Air 12/29/23 04:15 O2 Flow Rate 2 12/28/23 23:54 12/28/23 12/29/23 12/29/23 22:59 06:59 14:59 Intake Total 50 / 80 150 / 230 Balance 50 / 80 150 / 230 Weight last 48 hrs Weight 58.57 kg Weight 57.4 kg Physical Exam 2 Narrative: Patient is uncomfortable, no respiratory distress blood pressure elevated. HEENT normocephalic atraumatic. Vital signs noted. Neck is supple. Lungs are clear. Heart is regular. Abdomen is soft tender positive bowel sounds. Extremities have no edema. Dialysis access right IJ permacath. Patient was seen and examined with the help of a nurse using A/V equipment. Data 12/29/23 05:55 12/29/23 05:55 Micro: Microbiology 12/28/23 05:46 Blood Culture - Preliminary Blood SPECIMEN COLLECTED 12/28/23 05:46 Blood Culture - Preliminary Blood SPECIMEN COLLECTED A&P Assessment and plan (1) End stage renal disease on dialysis: Plan 1. End-stage renal disease: On MWF schedule, patient missed HD on Saturday, s/p HD Saturday, next HD saturday , and ultrafiltration as tolerated Placed on renal diet, 2 g sodium restriction 1500 mill fluid restriction 2. Hyperkalemia: Low K diet and HD as above 3. Metabolic acidosis: Should improve with HD. No sign of DKA. 4. History of hypertension: Blood pressure elevated, resume home medications Treat pain 5. Abdominal pain diabetic gastroparesis as per medicine. Patient is a labile diabetic. Question of colitis on CT scan. Medications reviewed 6. Anemia: Hemoglobin acceptable for ESRD. Patient evaluated using audiovisual cart. Patient consents to tell nephrology and to hemodialysis. Discussed with nurse and medical team Attestations 2 Medical Necessity Statement*: As per medical team diabetic gastroparesis, question of colitis. Time Spent in Patient Care: 16 - 35 minutes (>than 50% of time sp ent in counselling and/or direct pt care on unit) . Coding Level of Care Code Acute Code for Chg Fwd Diagnoses End stage renal disease on dialysis N18.6; Z99.2
[2023-12-29] MEDS: budesonide 0.5 mg/2 mL Neb INHALATION ×2 (09:14→21:01)
[2023-12-29] MEDS: ipratropium-albuterol 3 mL Neb INHALATION ×3 (09:15→21:01)
[2023-12-29] MEDS: insulin glargine 100 units/1 mL 10 UNIT SUBCUT (09:39)
[2023-12-29] MEDS: HYDROmorphone 1 mg/mL INJ 1 mL 0.2 MG IVP ×2 (10:38→19:11)
[2023-12-29 11:13] LABS: Glucose Point of Care 254 mg/dL (70-110)
[2023-12-29] MEDS: ondansetron 2 mg/ML SDV 2 mL 4 MG IVP ×2 (13:34→22:19)
--- NOTE | 2023-12-29 13:49 | P.PN_ITS ---
Subjective 2 Subjective: Patient was seen this morning, she continues to have episodes of nausea and vomiting, no diarrhea reported, no fevers, chills, no chest pain, no palpitations, Vitals/I&O/Wt Last Vital Signs Temp 97.8 F 12/29/23 11:02 Pulse 65 12/29/23 11:02 Resp 15 12/29/23 11:02 BP 150/88 12/29/23 11:02 Pulse Ox 97 12/29/23 11:02 O2 Del Method Nasal Cannula 12/29/23 11:02 O2 Flow Rate 2 12/29/23 11:02 12/28/23 12/29/23 12/29/23 22:59 06:59 14:59 Intake Total 50 / 80 150 / 230 Balance 50 / 80 150 / 230 Weight last 48 hrs Weight 58.57 kg Weight 57.4 kg Physical Exam 2 Const: COMMON NORMALS: no acute distress and patient oriented x3 HENMT: COMMON NORMALS: normocephalic HEAD & SCALP: normocephalic Resp: COMMON NORMALS: normal respiratory effort, No retractions, No use of accessory muscles and clear to auscultation bilaterally AUSCULTATION: clear to auscultation bilaterally Cardio: COMMON NORMALS: regular rate, regular rhythm, S1 normal heart sound present and S2 normal heart sound present RATE: regular rate RHYTHM: r egular rhythm HEART SOUNDS: S1 normal heart sound present and S2 normal heart sound present GI: COMMON NORMALS: Normal to inspection, nondistended, normoactive bowel sounds present OTHER: Diffuse tenderness, no guarding, no rebound, no rigidity Extremity: COMMON NORMALS: no pedal edema Neuro: COMMON NORMALS: patient oriented x3 Psych: COMMON NORMALS: mental status grossly normal Data 12/29/23 05:55 12/29/23 05:55 Micro: Microbiology 12/28/23 05:46 Blood Culture - Preliminary Blood SPECIMEN COLLECTED 12/28/23 05:46 Blood Culture - Preliminary Blood SPECIMEN COLLECTED A&P Assessment and plan (1) Fluid overload: - Looks euvolemic Qualifiers: Hypervolemia type: unspecified Qualified Code(s): E87.70 - Fluid overload, unspecified (2) End stage renal disease on dialysis: Consult nephrology, see above (3) Abdominal pain: - Component of colitis - component of diabetic gastroparesis Qualifiers: Abdominal location: left upper quadrant Qualified Code(s): R10.12 - Left upper quadrant pain (4) COPD (chronic obstructive pulmonary disease): Patient with history of underlying COPD Budesonide twice daily DuoNeb every 6 hours (5) Diabetes mellitus: - No evidence of diabetic ketoacidosis ? A1c 7.7 ? Low-dose sliding scale (6) Colitis: 2. Rectosigmoid colon wall thickening without adjacent fatty stranding most likely secondary to incomplete distension but colitis could give a similar appearance. ? Plan ? Stool studies ? Serial abdominal exams ? Zosyn (7) Intractable nausea and vomiting: ? Could be a component of diabetic gastroparesis ? Continue Zofran ? Continue Reglan ? Clear liquids (8) Transaminitis: - Acute hep panel ? HIV Plan Coronary artery disease with recent stenting of RCA. No chest discomfort on presentation. EKG benign. Will ensure she gets her Brilinta, aspirin and other cardiac medications this morning. Multiple other medical problems as outlined in past medical history Full code Heparin for DVT prophylaxis. -Plan for today blood sugar control, continues to have episodes of nausea vomiting, perhaps diabetic gastroparesis, in addition to colitis, continue IV antibiotics, continue Reglan, nausea control, Attestations 2 Medical Necessity Statement*: Patient requires hospitalization for abdominal pain, transaminitis gastroparesis, colitis Diagnoses Fluid overload E87.70 Hypervolemia type: unspecified End stage renal disease on dialysis N18.6; Z99.2 Abdominal pain R10.12 Abdominal location: left upper quadrant COPD (chronic obstructive pulmonary disease) J44.9 Diabetes mellitus E11.9 Colitis K52.9 Intractable nausea and vomiting R11.2 Transaminitis R74.01
[2023-12-29 16:15] LABS: Glucose Point of Care 104 mg/dL (70-110)
[2023-12-29 16:41] LABS: Glucose Point of Care 104 mg/dL (70-110)
--- NOTE | 2023-12-29 19:46 | PC.NURSE ---
pt was unable to stay awake, delayed pain medication per dr until pt was able to stay awake.
[2023-12-29] MEDS: atorvastatin 40 mg Tablet PO (20:19)
[2023-12-29] MEDS: lisinopril 20 mg Tablet 40 MG PO (20:19)
[2023-12-29 20:52] LABS: Glucose Point of Care 238 mg/dL (70-110)
[2023-12-30] VITALS (18 sets, daily range): BP systolic 119–197; BP diastolic 59–107; PULSE 55–70; RESP 12–18; TEMP 36.5–37; O2SAT 92–98
[2023-12-30] MEDS: piperacillin-tazobactam 3.375 GM in sodium chloride 0.9% (plus) 50 ML IV ×2 (00:17→12:44)
[2023-12-30] MEDS: heparin 5,000 unit/mL INJ 1 mL 5000 UNIT SUBCUT ×2 (00:17→12:44)
[2023-12-30] MEDS: pantoprazole 40 mg SDV IVP ×2 (00:17→12:44)
[2023-12-30] MEDS: HYDROmorphone 1 mg/mL INJ 1 mL 0.2 MG IVP ×3 (00:18→14:35)
[2023-12-30] MEDS: hyDRALAzine 25 mg Tablet PO (05:16)
[2023-12-30] MEDS: aspirin 81 mg EC Tablet PO (05:16)
[2023-12-30 05:26] LABS: Basophils # 0.1 10^3/uL (0.0-0.1); Basophils % 0.8 %; Eosinophils % 0.4 %; Hematocrit 38.6 % (36-47); Lymphocytes # 1.7 10^3/uL (0.8-4.8); Lymphocytes % 21.4 %; Mean Corpuscular HGB Conc 31.1 g/dL (30-55); Mean Corpuscular Hemoglobin 28.1 pg (27-33); Mean Corpuscular Volume 90.4 fl (85-98); Mean Platelet Volume 10.5 fL (7.4-10.4); Monocytes # 0.7 10^3/uL (0.2-0.9); Neutrophils # 5.32 10^3/uL (1.8-7.7); Neutrophils % 68.1 %; Nucleated Red Blood Cells % 0 %; Platelet Count 185 10^3/cmm (157-399); Red Blood Count 4.27 10^6/uL (3.85-5.65); Red Cell Distribution Width 15.8 % (12.1-15.1)
[2023-12-30 05:51] LABS: Procalcitonin 1.23 ng/mL (0-0.5)
[2023-12-30 06:05] LABS: Alanine Aminotransferase 33 U/L (0-33); Albumin Level 3.1 g/dL (3.5-5.2); Alkaline Phosphatase 131 U/L (35-105); Anion Gap 21.8 (5-19); Aspartate Amino Transferase 14 U/L (0-32); Calcium 7.9 mg/dL (8.5-10.5); Carbon Dioxide 23 mmol/L (22-29); Chloride 96 mmol/L (98-107); Globulin 3.4 g/dL (1.3-4.6); Glomerular Filtration Rate 6.3 mL/min (90-130); Glucose 208 mg/dL (65-115); Osmolality Calculated 313 mOsm/kg (285-295); Potassium 4.8 mmol/L (3.5-5.1); Sodium 136 mmol/L (136-145); Total Bilirubin 0.3 mg/dL (0.15-1.2); Total Protein 6.5 g/dL (6.6-8.7)
[2023-12-30 06:21] LABS: Blood Urea Nitrogen 83 mg/dL (6-20); Creatinine Clr Calc Pharmacy 8.3101
[2023-12-30 06:34] LABS: NT Pro B Type Natriuretic Pept > 70000 pg/mL (0-125)
[2023-12-30 06:39] LABS: Glucose Point of Care 218 mg/dL (70-110)
[2023-12-30] MEDS: ondansetron 2 mg/ML SDV 2 mL 4 MG IVP ×2 (06:39→21:36)
[2023-12-30] MEDS: hyDRALAzine 20 mg/mL INJ 1 mL 10 MG IVP (07:54)
[2023-12-30 08:02] LABS: Glucose Point of Care 190 mg/dL (70-110)
--- NOTE | 2023-12-30 08:11 | ECG_ITS ---
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 Measurements Intervals [place] Rate: 57 P: 74 NM: 165 QRS: -13 QRSD: 105 T: -3 QT: 457 QTc: 448 Interpretive Statements SINUS BRADYCARDIA POSSIBLE LEFT ATRIAL ENLARGEMENT [-0.1mV P-WAVE IN V1/V2] INFERIOR MYOCARDIAL INFARCTION , OF INDETERMINATE AGE [40+ ms Q WAVE AND/OR ST/T ABNORMALITY IN II/aVF] Compared to ECG 12/27/2023 03:00:13 Myocardial infarct finding now present Sinus rhythm no longer present Electronically Signed On 12-30-2023 12:03:26 CDT by Riccardo Burch M.D. [id number]
--- NOTE | 2023-12-30 08:16 | PM.PN ---
Subjective Subjective: CP on dialysis, nausea, abd pain. uncomfortable. was seen by hospitalist- who did ekg and madan troponin Medications: Reviewed: Yes Medication Review Details: Current Medications Acetaminophen (Acetaminophen 325 Mg Tablet) 650 mg PO Q6H PRN PRN Reason: Mild/Mod Pain Or Temp >/= 101 Albuterol/Ipratropium (Ipratropium-Albuterol 3 Ml Neb) 3 ml INHALATION Q6H.RESP [facility] Last Admin: 12/29/23 21:01 Dose: 3 ml Amlodipine Besylate (Amlodipine 10 Mg Tablet) 10 mg PO DAILY [facility] Aspirin (Aspirin 81 Mg Ec Tablet) 81 mg PO QAM [facility] Last Admin: 12/30/23 05:16 Dose: 81 mg Atorvastatin Calcium (Atorvastatin 40 Mg Tablet) 40 mg PO BEDTIME [facility] Last Admin: 12/29/23 20:19 Dose: 40 mg Budesonide (Budesonide 0.5 Mg/2 Ml Neb) 0.5 mg INHALATION BID.RESPIRATORY [facility] Last Admin: 12/29/23 21:01 Dose: 0.5 mg Carvedilol (Carvedilol 12.5 Mg Tablet) 12.5 mg PO BID [facility] Last Admin: 12/29/23 17:04 Dose: 12.5 mg Escitalopram Oxalate (Escitalopram 10 Mg Tablet) 10 mg PO DAILY [facility] Last Admin: 12/29/23 08:07 Dose: 10 mg Gabapentin (Gabapentin 100 Mg Capsule) 100 mg PO TID [facility] Last Admin: 12/29/23 20:19 Dose: 100 mg Glucagon (Glucagon 1 Mg/Ml Kit 1 Ml) 1 mg IM ONCE PRN; Protocol PRN Reason: Adult Acute Hypoglycemia Nursing Prot. Heparin Sodium (Porcine) (Heparin 5,000 Unit/Ml Inj 1 Ml) 5,000 unit SUBCUT Q12H [facility] Last Admin: 12/30/23 00:17 Dose: 5,000 unit Hydralazine HCl (Hydralazine 20 Mg/Ml Inj 1 Ml) 10 mg IVP Q4H PRN PRN Reason: HYPERTENSION Last Admin: 12/30/23 07:54 Dose: 10 mg Hydralazine HCl (Hydralazine 25 Mg Tablet) 25 mg PO Q8H [facility] Last Admin: 12/30/23 05:16 Dose: 25 mg Hydromorphone HCl (Hydromorphone 1 Mg/Ml Inj 1 Ml) 0.2 mg IVP Q4H PRN PRN Reason: PAIN Last Admin: 12/30/23 06:39 Dose: 0.2 mg Sodium Chloride (Sodium Chloride 0.9%) 1,000 mls @ 0 mls/hr IV .Q0M PRN PRN Reason: hypotension or symptomatic Albumin Human (Albumin) 12.5 gm in 50 mls @ 60 mls/hr IV PRN PRN PRN Reason: Hypotension and/or symptomatic Piperacillin Sod/Tazobactam (Sod 3.375 gm/ Sodium Chloride) 50 mls @ 12.5 mls/hr IV Q12H [facility]; Protocol Last Infusion: 12/30/23 05:19 Dose: Infused Dextrose (D5w) 500 mls @ 0 mls/hr IV ONCE PRN; Protocol PRN Reason: Adult Acute Hypoglycemia Prot Dextrose (D10w) 125 mls @ 750 mls/hr IV PRN PRN; Protocol PRN Reason: Adult Acute Hypoglycemia Nursing Protocol Dextrose (D10w) 250 mls @ 1,000 mls/hr IV PRN PRN; Protocol PRN Reason: Adult Acute Hypoglycemia Nursing Protocol Insulin Human Lispro (Insulin Lispro 100 Unit/1 Ml) 0 unit SUBCUT TIDWM [facility]; Protocol Last Admin: 12/29/23 17:04 Dose: Not Given Lisinopril (Lisinopril 20 Mg Tablet) 40 mg PO BEDTIME [facility] Last Admin: 12/29/23 20:19 Dose: 40 mg Metoclopramide HCl (Metoclopramide 5 Mg/Ml Sdv 2 Ml) 5 mg IVP Q6H PRN PRN Reason: NAUSEA AND VOMITING Last Admin: 12/29/23 08:08 Dose: 5 mg Naloxone HCl (Naloxone 0.4 Mg/Ml Sdv) 0.1 mg IVP Q2M PRN PRN Reason: RESPIRATORY RATE < 8/MIN Ondansetron HCl (Ondansetron 2 Mg/Ml Sdv 2 Ml) 4 mg IVP Q6H PRN PRN Reason: vomiting, or N/V if npo Last Admin: 12/30/23 06:39 Dose: 4 mg Pantoprazole Sodium (Pantoprazole 40 Mg Sdv) 40 mg IVP Q12H [facility] Last Admin: 12/30/23 00:17 Dose: 40 mg Sevelamer Carbonate (Sevelamer 800 Mg Tablet) 800 mg PO TID [facility] Last Admin: 12/29/23 20:20 Dose: 800 mg Ticagrelor (Ticagrelor 90 Mg Tablet) 90 mg PO BID [facility] Last Admin: 12/29/23 17:04 Dose: 90 mg Vitals/I&O/Wt Last Vital Signs Temp 692.6 F H 12/30/23 07:42 Pulse 62 12/30/23 07:42 Resp 16 12/30/23 07:42 BP 184/95 12/30/23 07:42 Pulse Ox 98 12/30/23 04:00 O2 Del Method Nasal Cannula 12/30/23 04:00 O2 Flow Rate 2 12/30/23 04:00 12/29/23 12/30/23 12/30/23 22:59 06:59 14:59 Intake Total 170 / 170 50 / 220 Output Total 400 / 400 Balance -230 / -230 50 / -180 Weight last 48 hrs Weight 56.472 kg Physical Exam Narrative: Patient is uncomfortable on dialysis, no respiratory distress blood pressure elevated. HEENT normocephalic atraumatic. Vital signs noted. BP high Neck is supple. Lungs are clear. +ACW CP when palpating Heart is regular. Abdomen is soft tender positive bowel sounds. Extremities have no edema. Dialysis access right IJ permacath. Patient was seen and examined with the help of a nurse using A/V equipment. Data 12/30/23 04:48 12/30/23 04:48 Micro: Microbiology 12/28/23 05:46 Blood Culture - Preliminary Blood NEGATIVE TO DATE 12/28/23 05:46 Blood Culture - Preliminary Blood NEGATIVE TO DATE A&P Assessment and plan (1) End stage renal disease on dialysis: Plan 1. End-stage renal disease: On MWF schedule, patient missed HD on Saturday, s/p HD . seen on dialysis, remove 1.5- 2 l as tolerated, 2 k bath Placed on renal diet, 2 g sodium restriction 1500 mill fluid restriction 2. Metabolic acidosis: improved 3. Hypertension: Blood pressure elevated, resume home medications Treat pain. cards to see pt 4. Abdominal pain diabetic gastroparesis as per medicine. Patient is a labile diabetic. Question of colitis on CT scan. Medications reviewed 5. Anemia: Hemoglobin acceptable for ESRD. no epo- hgb 12 and bp is elevated Patient evaluated using audiovisual cart. Patient consents to tell nephrology and to hemodialysis. Discussed with HD nurse multiple times Attestations Medical Necessity Statement*: cp, dm, abd pain, esrd, htn Time Spent in Patient Care: 16 - 35 minutes (>than 50% of time spent in counselling and/or direct pt care on unit). Coding Level of Care Code Acute Code for Chg Fwd Diagnoses End stage renal disease on dialysis N18.6; Z99.2
[2023-12-30] MEDS: nitroglycerin 0.4 mg sublingual Tablet SUBLINGUAL (08:48)
[2023-12-30] MEDS: gabapentin 100 mg Capsule PO ×3 (08:54→22:40)
[2023-12-30] MEDS: escitalopram 10 mg Tablet PO (08:54)
[2023-12-30] MEDS: sevelamer 800 mg Tablet PO ×2 (08:54→22:39)
[2023-12-30] MEDS: ticagrelor 90 mg Tablet PO ×2 (08:55→18:07)
[2023-12-30] MEDS: amlodipine 10 mg Tablet PO (08:55)
--- NOTE | 2023-12-30 09:04 | PC.NURSE ---
Dialysis called rapid response on patient while in dialysis due to chest pain/pressure Blood pressure was 214/109, HR 59, Blood Sugar 190, EKG performed, 10 mg IVP Hydralazine given. Dr. Carrera notified. Dr. Carrera ordered Nitroglycerin 0.4 sublignual one time, Dilaudid 0.4 mg IVP once.
[2023-12-30] MEDS: insulin lispro 100 unit/1 mL SUBCUT (09:17)
--- NOTE | 2023-12-30 09:19 | PC.NURSE ---
Called Dr. Carrera about blood pressure of 186/97 and HR 59. Stated to give the Amlodipine and Dilaudid
[2023-12-30] MEDS: HYDROmorphone 1 mg/mL INJ 1 mL 0.4 MG IVP (09:22)
--- NOTE | 2023-12-30 09:25 | PC.CHAP ---
Pastoral Care Encounter/Spiritual Assessment Type of Contact [] Declined district court bailiff visit [] Patient/Family/Request visit [] Outpatient visit [] Follow-up visit [] Physician referral [] Code/Alert [x] Routine visit [] Staff referral [] Actively dying [] Patient sleeping [] Family support [] [x] Out of room [] Palliative care [] [] Receiving care in room [] Pre-surgical visit [] Trauma [] Long length of stay [] ICU visit [] Other: Relational/Emotional Strength [] Patient feels connected with others/family/visitors/staff [] Distress [] Loneliness/isolation [] Abandonment Spirituality of Patient [] Person of Marly [] Attends Spiritism of their [place] [] Believes in Prayer [] Reads Bible or Latter Day materials [] There are Spiritual issues to be addressed Commercial Sales Consultant Interventions [] Prayer [] Active listening [] Non-anxious presence [] Spiritual/emotional support [] Crisis/trauma care [] Spiritual counseling [] Bereavement support [] Provided bereavement packet [] Provided Bible/devotional materials [] Provided toy/stuffed animal, coloring book to patient or family member [] Provided Communion [] Anointing/[place] [] Salvation [] Completed spiritual assessment [] Other: Impact on Illness or Injury [] Angry [] Fearful [] Anxious [] Often cries [] Exhaustion [] Unable to work [] Unable to attend yazdanism [] Unable to walk/stand [] Unable to read [] Unable to drive [] Unable to eat/drink [] Unable to sleep [] Unable to be with family [] Patient intubated [] Other: Summary Time spent with patient
--- NOTE | 2023-12-30 10:17 | ECG_ITS ---
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 Measurements Intervals [place] Rate: 54 P: 78 NC: 157 QRS: -12 QRSD: 113 T: 99 QT: 467 QTc: 444 Interpretive Statements SINUS BRADYCARDIA INFERIOR MYOCARDIAL INFARCTION , OF INDETERMINATE AGE [40+ ms Q WAVE AND/OR ST/T ABNORMALITY IN II/aVF] MODERATE T-WAVE ABNORMALITY, CONSIDER ANTEROLATERAL ISCHEMIA [-0.1+ mV T-WAVE IN V3-V6] Compared to ECG 12/30/2023 07:57:34 T-wave abnormality now present Possible ischemia now present Myocardial infarct finding still present Electronically Signed On 12-30-2023 12:04:45 CDT by Riccardo Burch M.D. [id number]
--- NOTE | 2023-12-30 11:24 | PC.NURSE ---
Coreg was not given to do HR. Blood pressure did improve.
[2023-12-30 11:27] LABS: Glucose Point of Care 106 mg/dL (70-110)
[2023-12-30 11:33] LABS: Troponin(5th) Baseline 231 ng/L (0-10)
--- NOTE | 2023-12-30 12:45 | PC.NURSE ---
Notified Dr. Carrera patients blood pressure 147/83, HR 56. Orders to hold Hydralazine and recheck Blood Pressure in one hour.
[2023-12-30] MEDS: ipratropium-albuterol 3 mL Neb INHALATION ×2 (13:28→20:26)
[2023-12-30 13:51] LABS: Troponin 5 2HR Delta -4.3 ABS# (0-10)
[2023-12-30 13:52] LABS: Troponin 5 2HR 226.7 ng/L (0-10)
--- NOTE | 2023-12-30 14:11 | ECG_ITS ---
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 Measurements Intervals [place] Rate: 60 P: 42 UT: 158 QRS: -18 QRSD: 106 T: 4 QT: 499 QTc: 503 Interpretive Statements SINUS RHYTHM INFERIOR MYOCARDIAL INFARCTION , OF INDETERMINATE AGE [40+ ms Q WAVE AND/OR ST/T ABNORMALITY IN II/aVF] Compared to ECG 12/30/2023 10:17:06 Sinus bradycardia no longer present T-wave abnormality no longer present Possible ischemia no longer present Myocardial infarct finding still present Electronically Signed On 12-30-2023 14:35:17 CDT by Riccardo Burch M.D. [id number]
--- NOTE | 2023-12-30 14:13 | PC.SOCIAL ---
IMM Update pg 2 of IMM updated and reviewed w/ patient. Copy provided and copy dated, initialed and placed in chart.
[2023-12-30] MEDS: metoclopramide 5 mg/mL SDV 2 mL IVP (14:35)
--- NOTE | 2023-12-30 14:50 | P.PN_ITS ---
Subjective 2 Subjective: - Rapid response was called this morning , to the dialysis suite, Crystal was in dialysis, complaining of chest pain ? Patient was seen, EKG no acute ST-T wave changes, she was hypertensive systolic blood pressure in the 190s, she was alert oriented x 3, a bit drowsy, as she has not received her Dilaudid this morning ? On examination, patient complains of diffuse pain, she has exquisite tenderness in the chest wall upon palpation of the left chest wall, she tells me this is what is hurting me, ? Discussed nursing staff to get her blood pressure under control will give her nitroglycerin 1 more dose of Dilaudid, monitor her blood pressure, she has received her aspirin this morning she will receive her Brilinta, continued serial troponins, EKG monitoring ? Patient was reexamined in the dialysis which she is resting very comfortably, she is received nitro, Dilaudid, Norvasc, on examination she has no chest wall tenderness to palpation denies any chest pain, blood pressures have improved to systolic 140s, dialysis nurse at bedside, As patient continues to feel nauseous, poor appetite, Vitals/I&O/Wt Last Vital Signs Temp 98.6 F 12/30/23 11:29 Pulse 62 12/30/23 13:29 Resp 16 12/30/23 13:29 BP 147/83 12/30/23 11:29 Pulse Ox 98 12/30/23 13:29 O2 Del Method Nasal Cannula 12/30/23 13:29 O2 Flow Rate 2 12/30/23 13:29 12/29/23 12/30/23 12/30/23 22:59 06:59 14:59 Intake Total 170 / 170 50 / 220 300 / 300 Output Total 400 / 400 2300 / 2300 Balance -230 / -230 50 / -180 -2000 / -2000 Weight last 48 hrs Weight 54.6 kg Weight 56.472 kg Physical Exam 2 Const: COMMON NORMALS: no acute distress and patient oriented x3 Chest: OTHER: Diffuse chest wall tenderness, palpation of left chest wall, under left breast Resp: COMMON NORMALS: normal respiratory effort, No retractions, No use of accessory muscles and clear to auscultation bilaterally AUSCULTATION: clear to auscultation bilaterally Cardio: COMMON NORMALS: regular rate, regular rhythm, S1 normal heart sound present and S2 normal heart sound present RATE: regular rate RHYTHM: r egular rhythm HEART SOUNDS: S1 normal heart sound present and S2 normal heart sound present GI: COMMON NORMALS: Normal to inspection, nondistended, normoactive bowel sounds present and non-tender Extremity: COMMON NORMALS: no pedal edema Neuro: COMMON NORMALS: patient oriented x3 Psych: COMMON NORMALS: mental status grossly normal Data 12/30/23 04:48 12/30/23 04:48 Micro: Microbiology 12/28/23 05:46 Blood Culture - Preliminary Blood NEGATIVE TO DATE 12/28/23 05:46 Blood Culture - Preliminary Blood NEGATIVE TO DATE A&P Assessment and plan (1) Fluid overload: - Looks euvolemic Qualifiers: Hypervolemia type: unspecified Qualified Code(s): E87.70 - Fluid overload, unspecified (2) End stage renal disease on dialysis: Consult nephrology, see above (3) Abdominal pain: - Component of colitis - component of diabetic gastroparesis -Continue Reglan Qualifiers: Abdominal location: left upper quadrant Qualified Code(s): R10.12 - Left upper quadrant pain (4) COPD (chronic obstructive pulmonary disease): Patient with history of underlying COPD Budesonide twice daily DuoNeb every 6 hours (5) Diabetes mellitus: - No evidence of diabetic ketoacidosis ? A1c 7.7 ? Low-dose sliding scale (6) Colitis: 2. Rectosigmoid colon wall thickening without adjacent fatty stranding most likely secondary to incomplete distension but colitis could give a similar appearance. ? Plan ? Stool studies ? Serial abdominal exams ? Zosyn (7) Intractable nausea and vomiting: ? Could be a component of diabetic gastroparesis ? Continue Zofran ? Continue Reglan ? Clear liquids (8) Transaminitis: - Acute hep panel ? HIV Plan Coronary artery disease with recent stenting of RCA. No chest discomfort on presentation. EKG benign. Will ensure she gets her Brilinta, aspirin and other cardiac medications this morning. Multiple other medical problems as outlined in past medical history Chest pain complaints Seems atypical sounds more musculoskeletal -Cath in 11/2023 showed -Conclusions 1. Severe mid LAD stenosis s/p successful revascularization with 1 stent.. 2. Mid Left Anterior Descending to Mid Left Anterior Descending was treated with a Balloon, Drug Eluting Stent, and Balloon. ? Continue home aspirin, Brilinta Serial EKGs consult telemetry monitoring ? Monitor for recurrent chest pain -Repeat cardiac echo Hypertensive urgency, continue home blood pressure medications, monitor blood pressure closely Full code Heparin for DVT prophylaxis. -Plan for today monitor for chest pain, Attestations 2 Medical Necessity Statement*: Patient requires hospitalization for chest pain, recent history of cardiac catheterization with intervention, Diagnoses Fluid overload E87.70 Hypervolemia type: unspecified End stage renal disease on dialysis N18.6; Z99.2 Abdominal pain R10.12 Abdominal location: left upper quadrant COPD (chronic obstructive pulmonary disease) J44.9 Diabetes mellitus E11.9 Colitis K52.9 Intractable nausea and vomiting R11.2 Transaminitis R74.01
--- NOTE | 2023-12-30 14:56 | USCV_ITS ---
Donita Aguilar Age: 38 Gender: F : 1985 Exam Date: 12/30/2023 16:57 Ordering Phys: Shola Carrera MD Technologist: CT Exam Location: [facility] [place] Indication: cp, stents, ef BP: 150 / 89 HR: 60 Rhythm: Sinus Technical Quality: Adequate MEASUREMENTS (Male / Female) Normal Values 2D ECHO LVOT Diameter 2.0 cm LV Ejection Fraction MOD 2C 55.2 % LV Ejection Fraction 2C AL 55.6 % LA Diameter 4.3 cm RA Systolic Volume 4C AL 24.7 ml RA Systolic Volume 4C MOD 23.3 ml LA Sys Volume AL 60.9 cm cubed LA Sys Volume Index AL 39.9 cm cubed/m squared Aorta at Sinotubular Diameter 1.9 cm IVC Diameter 1.3 cm M-MODE LA Ao Ratio MM 2.0 AV Cusp Separation MM 1.9 cm DOPPLER AV Peak Velocity 144.0 cm/s AV Area Cont Eq vti 2.1 cm squared AV Area Cont Eq pk 2.0 cm squared MV Peak Velocity 113.0 cm/s MV Area PHT 2.8 cm squared Mitral E to A Ratio 1.5 TR Peak Velocity 156.0 cm/s TR Peak Gradient 9.7 mmHg TV Peak E Velocity 79.0 cm/s Right Atrial Pressure 3.0 mmHg Pulmonary Artery Systolic Pressu 12.7 mmHg PV Peak Velocity 104.0 cm/s FINDINGS Left Ventricle Moderate concentric left ventricular hypertrophy. Slightly dyskinetic basal inferior wall segment.Grade III/IV diastolic dysfunction (restrictive filling pattern), severely elevated filling pressures. Normal LV size with an ejection fraction of 55% Right Ventricle The right ventricle is normal in size and function. Right Atrium The right atrium is normal in size. Left Atrium Mildly increased left atrial size. Mitral Valve Mild mitral valve regurgitation. Aortic Valve No gross abnormalities noted Tricuspid Valve No gross abnormalities noted Pulmonic Valve Pulmonic valve not well visualized. Pericardium No pericardial effusion. Aorta Normal aortic annulus size. IVC Normal inferior vena cava. CONCLUSIONS Moderate concentric left ventricular hypertrophy. Slightly dyskinetic basal inferior wall segment.Grade III/IV diastolic dysfunction (restrictive filling pattern), severely elevated filling pressures. Normal LV size with an ejection fraction of 55%. Mildly increased left atrial size. Mild mitral valve regurgitation. There is no pericardial effusion. There are no intracardiac masses. Compared to the study from 11/27/2023, there may not be a significant change Dr Gilberto Eugene MD FACC (Electronically Signed) Final Date: 30 December 2023 18:35 S
[2023-12-30 16:35] LABS: Glucose Point of Care 114 mg/dL (70-110)
--- NOTE | 2023-12-30 17:07 | ECG_ITS ---
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 Interpretive Statements NAME OF STUDY: LEXISCAN SESTAMIBI STRESS TEST INDICATION: [Chest Pain, ] [id number]
--- NOTE | 2023-12-30 17:16 | PC.NURSE ---
Notified Dr. Carrera of patients bp and HR for hydralazine. Dr. Carrera stated to hold medication.
[2023-12-30] MEDS: carvedilol 12.5 mg Tablet 6.25 MG PO (18:07)
[2023-12-30] MEDS: morphine 4 mg/mL SDV 1 mL 1 MG IVP ×2 (18:14→22:42)
[2023-12-30 18:52] LABS: Troponin 5 6HR Delta -9.2 ng/L (0-12)
[2023-12-30 18:55] LABS: Troponin 5 6HR 221.8 ng/L (0-10)
[2023-12-30 18:58] LABS: Erythrocyte Sedimentation Rate 7 mm/hr (0-15)
[2023-12-30 19:07] LABS: Procalcitonin 0.88 ng/mL (0-0.5)
[2023-12-30 20:18] LABS: Glucose Point of Care 117 mg/dL (70-110)
[2023-12-30] MEDS: budesonide 0.5 mg/2 mL Neb INHALATION (20:26)
--- NOTE | 2023-12-30 21:25 | PC.NURSE ---
Report given to Mj. Patient transferred to ICU via wheelchair.
[2023-12-30] MEDS: nitroglycerin drip 50 MG/250 ML PREMIX IV (21:50)
[2023-12-30] MEDS: hyDRALAzine 25 mg Tablet 12.5 MG PO (22:40)
[2023-12-30] MEDS: lisinopril 20 mg Tablet 40 MG PO (22:40)
[2023-12-30] MEDS: atorvastatin 40 mg Tablet PO (22:40)
[2023-12-31] VITALS (161 sets, daily range): BP systolic 66–191; BP diastolic 35–109; PULSE 60–75; RESP 0–23; TEMP 36.3–37.7; O2SAT 86–100
[2023-12-31] MEDS: pantoprazole 40 mg SDV IVP ×2 (01:30→13:27)
[2023-12-31] MEDS: metoclopramide 5 mg/mL SDV 2 mL IVP ×3 (01:31→17:18)
[2023-12-31] MEDS: piperacillin-tazobactam 3.375 GM in sodium chloride 0.9% (plus) 50 ML IV ×2 (01:31→11:46)
[2023-12-31] MEDS: ipratropium-albuterol 3 mL Neb INHALATION ×4 (02:11→20:12)
[2023-12-31] MEDS: heparin drip 25,000 UNIT/500 ML PREMIX 15 UNIT IV (02:23)
[2023-12-31] MEDS: heparin 5,000 unit/mL INJ 1 mL IV ×3 (02:27→18:39)
[2023-12-31 04:51] LABS: Basophils # 0.1 10^3/uL (0.0-0.1); Basophils % 0.8 %; Eosinophils % 0.5 %; Hematocrit 44.6 % (36-47); Lymphocytes # 1.5 10^3/uL (0.8-4.8); Lymphocytes % 18.4 %; Mean Corpuscular HGB Conc 30.9 g/dL (30-55); Mean Corpuscular Hemoglobin 27.7 pg (27-33); Mean Corpuscular Volume 89.6 fl (85-98); Mean Platelet Volume 11.2 fL (7.4-10.4); Monocytes # 0.6 10^3/uL (0.2-0.9); Monocytes % 7.2 %; Neutrophils # 5.79 10^3/uL (1.8-7.7); Neutrophils % 72.8 %; Nucleated Red Blood Cells % 0 %; Platelet Count 181 10^3/cmm (157-399); Red Blood Count 4.98 10^6/uL (3.85-5.65); Red Cell Distribution Width 15.2 % (12.1-15.1); White Blood Count 7.94 10^3/uL (3.29-11.43)
[2023-12-31 05:28] LABS: Alanine Aminotransferase 34 U/L (0-33); Albumin Level 3.4 g/dL (3.5-5.2); Alkaline Phosphatase 149 U/L (35-105); Aspartate Amino Transferase 21 U/L (0-32); Blood Urea Nitrogen 41 mg/dL (6-20); Calcium 8.5 mg/dL (8.5-10.5); Carbon Dioxide 18 mmol/L (22-29); Chloride 98 mmol/L (98-107); Creatinine Clr Calc Pharmacy 12.0202; Glucose 128 mg/dL (65-115); Osmolality Calculated 296 mOsm/kg (285-295); Sodium 137 mmol/L (136-145); Total Bilirubin 0.6 mg/dL (0.15-1.2); Total Protein 7.4 g/dL (6.6-8.7)
[2023-12-31 05:29] LABS: Anion Gap 25.3 (5-19); Potassium 4.3 mmol/L (3.5-5.1); Procalcitonin 0.93 ng/mL (0-0.5)
[2023-12-31] MEDS: aspirin 81 mg EC Tablet PO (06:19)
[2023-12-31] MEDS: hyDRALAzine 25 mg Tablet 12.5 MG PO (06:19)
[2023-12-31 06:32] LABS: NT Pro B Type Natriuretic Pept > 70000 pg/mL (0-125)
[2023-12-31] MEDS: regadenoson 0.4 Mg/5 ml Syringe IVP (07:13)
[2023-12-31] MEDS: ondansetron 2 mg/ML SDV 2 mL 4 MG IVP ×3 (07:29→20:23)
[2023-12-31] MEDS: budesonide 0.5 mg/2 mL Neb INHALATION ×2 (08:00→20:12)
[2023-12-31] MEDS: morphine 4 mg/mL SDV 1 mL 1 MG IVP ×2 (08:06→11:47)
[2023-12-31] MEDS: carvedilol 12.5 mg Tablet 6.25 MG PO ×2 (08:52→18:24)
[2023-12-31] MEDS: gabapentin 100 mg Capsule PO ×3 (08:52→20:10)
[2023-12-31] MEDS: sevelamer 800 mg Tablet PO ×3 (08:52→20:09)
[2023-12-31] MEDS: ticagrelor 90 mg Tablet PO ×2 (08:52→18:24)
[2023-12-31] MEDS: amlodipine 10 mg Tablet PO (08:52)
[2023-12-31] MEDS: escitalopram 10 mg Tablet PO (08:53)
[2023-12-31 09:01] LABS: Glucose Point of Care 140 mg/dL (70-110)
--- NOTE | 2023-12-31 10:18 | PM.PN ---
Subjective Subjective: The patient was seen and examined this morning in ICU. The patient remained on nitroglycerin 20 IV. Chest pain improved however blood pressure remains severely elevated. She has nausea abdominal pain not feeling well. Denies shortness of breath. No headaches. No diarrhea. Rest review of systems negative except as above. Medications: Reviewed: Yes Medication Review Details: Current Medications Acetaminophen (Acetaminophen 325 Mg Tablet) 650 mg PO Q6H PRN PRN Reason: Mild/Mod Pain Or Temp >/= 101 Albuterol/Ipratropium (Ipratropium-Albuterol 3 Ml Neb) 3 ml INHALATION Q6H.RESP SHAY Last Admin: 12/31/23 02:11 Dose: 3 ml Aminophylline (Aminophylline 25 Mg/Ml Sdv 10 Ml) 25 mg IVP Q2M PRN PRN Reason: see dose instructions Stop: 01/01/24 06:32 Amlodipine Besylate (Amlodipine 10 Mg Tablet) 10 mg PO DAILY SHAY Last Admin: 12/31/23 08:52 Dose: 10 mg Aspirin (Aspirin 81 Mg Ec Tablet) 81 mg PO QAM SHAY Last Admin: 12/31/23 06:19 Dose: 81 mg Atorvastatin Calcium (Atorvastatin 40 Mg Tablet) 40 mg PO BEDTIME SHAY Last Admin: 12/30/23 22:40 Dose: 40 mg Budesonide (Budesonide 0.5 Mg/2 Ml Neb) 0.5 mg INHALATION BID.RESPIRATORY HSAY Last Admin: 12/30/23 20:26 Dose: 0.5 mg Carvedilol (Carvedilol 12.5 Mg Tablet) 6.25 mg PO BID SHAY Last Admin: 12/31/23 08:52 Dose: 6.25 mg Escitalopram Oxalate (Escitalopram 10 Mg Tablet) 10 mg PO DAILY SHAY Last Admin: 12/31/23 08:53 Dose: 10 mg Gabapentin (Gabapentin 100 Mg Capsule) 100 mg PO TID SHAY Last Admin: 12/31/23 08:52 Dose: 100 mg Glucagon (Glucagon 1 Mg/Ml Kit 1 Ml) 1 mg IM ONCE PRN; Protocol PRN Reason: Adult Acute Hypoglycemia Nursing Prot. Heparin Sodium (Porcine) (Heparin 5,000 Unit/Ml Inj 1 Ml) 0 unit IV PRN PRN; Protocol PRN Reason: Heparin weight-base protocol Last Admin: 12/31/23 02:27 Dose: 2,700 unit Hydralazine HCl (Hydralazine 20 Mg/Ml Inj 1 Ml) 10 mg IVP Q4H PRN PRN Reason: HYPERTENSION Last Admin: 12/30/23 07:54 Dose: 10 mg Hydralazine HCl (Hydralazine 25 Mg Tablet) 12.5 mg PO Q8H SHAY Last Admin: 12/31/23 06:19 Dose: 12.5 mg Sodium Chloride (Sodium Chloride 0.9%) 1,000 mls @ 0 mls/hr IV .Q0M PRN PRN Reason: hypotension or symptomatic Albumin Human (Albumin) 12.5 gm in 50 mls @ 60 mls/hr IV PRN PRN PRN Reason: Hypotension and/or symptomatic Piperacillin Sod/Tazobactam (Sod 3.375 gm/ Sodium Chloride) 50 mls @ 12.5 mls/hr IV Q12H SHAY; Protocol Last Infusion: 12/31/23 05:49 Dose: Infused Dextrose (D5w) 500 mls @ 0 mls/hr IV ONCE PRN; Protocol PRN Reason: Adult Acute Hypoglycemia Prot Dextrose (D10w) 125 mls @ 750 mls/hr IV PRN PRN; Protocol PRN Reason: Adult Acute Hypoglycemia Nursing Protocol Dextrose (D10w) 250 mls @ 1,000 mls/hr IV PRN PRN; Protocol PRN Reason: Adult Acute Hypoglycemia Nursing Protocol Heparin Sodium/Sodium Chloride (Heparin Drip) 25,000 unit in 500 mls @ 0 mls/hr IV .Q0M SHAY; Protocol Last Admin: 12/31/23 02:23 Dose: 13.74 unit/kg/hr, 15 mls/hr Nitroglycerin/Dextrose (Nitroglycerin Drip) 50 mg in 250 mls @ 0 mls/hr IV .Q0M SHAY; Protocol Last Titration: 12/31/23 09:57 Dose: 10 mcg/min, 3 mls/hr Insulin Human Lispro (Insulin Lispro 100 Unit/1 Ml) 0 unit SUBCUT TIDWM SHAY; Protocol Last Admin: 12/31/23 08:54 Dose: Not Given Lisinopril (Lisinopril 20 Mg Tablet) 40 mg PO BEDTIME SHAY Last Admin: 12/30/23 22:40 Dose: 40 mg Metoclopramide HCl (Metoclopramide 5 Mg/Ml Sdv 2 Ml) 5 mg IVP Q6H PRN PRN Reason: NAUSEA AND VOMITING Last Admin: 12/31/23 01:31 Dose: 5 mg Morphine Sulfate (Morphine 4 Mg/Ml Sdv 1 Ml) 1 mg IVP Q4H PRN PRN Reason: SEVERE PAIN Last Admin: 12/31/23 08:06 Dose: 1 mg Naloxone HCl (Naloxone 0.4 Mg/Ml Sdv) 0.1 mg IVP Q2M PRN PRN Reason: RESPIRATORY RATE < 8/MIN Nitroglycerin (Nitroglycerin 0.4 Mg Sublingual Tablet) 0.4 mg SUBLINGUAL Q5M PRN PRN Reason: CHEST PAIN Nitroglycerin (Nitroglycerin 0.4 Mg Sublingual Tablet) 0.4 mg SUBLINGUAL Q5M PRN PRN Reason: CHEST PAIN Stop: 01/01/24 06:32 Ondansetron HCl (Ondansetron 2 Mg/Ml Sdv 2 Ml) 4 mg IVP Q6H PRN PRN Reason: vomiting, or N/V if npo Last Admin: 12/31/23 07:29 Dose: 4 mg Ondansetron HCl (Ondansetron 2 Mg/Ml Sdv 2 Ml) 4 mg IVP Q2M PRN PRN Reason: NAUSEA Pantoprazole Sodium (Pantoprazole 40 Mg Sdv) 40 mg IVP Q12H [facility] Last Admin: 12/31/23 01:30 Dose: 40 mg Sevelamer Carbonate (Sevelamer 800 Mg Tablet) 800 mg PO TID [facility] Last Admin: 12/31/23 08:52 Dose: 800 mg Ticagrelor (Ticagrelor 90 Mg Tablet) 90 mg PO BID [facility] Last Admin: 12/31/23 08:52 Dose: 90 mg Vitals/I&O/Wt Last Vital Signs Temp 97.4 F L 12/31/23 09:00 Pulse 69 12/31/23 09:10 Resp 4 L 12/31/23 09:10 BP 188/92 12/31/23 09:10 Pulse Ox 95 12/31/23 09:10 O2 Del Method Room Air 12/31/23 09:00 O2 Flow Rate 2 12/30/23 20:26 FiO2 21 12/31/23 08:47 12/30/23 12/31/23 12/31/23 22:59 06:59 14:59 Intake Total 170 / 590 187.525 / 777.525 23.35 / 23.35 Balance 170 / -1710 187.525 / -1522.475 23.35 / 23.35 Weight last 48 hrs Weight 52.844 kg Weight 54.6 kg Weight 56.472 kg Physical Exam Narrative: Patient is in bed in ICU on nitro drip no respiratory distress vs noted HEENT normocephalic atraumatic. Vital signs noted. BP high Neck is supple. Lungs are clear. Heart is regular. Abdomen is soft tender positive bowel sounds. Extremities have no edema. Dialysis access right IJ permacath. Patient was seen and examined with the help of a nurse using A/V equipment. Data 12/31/23 04:36 12/31/23 04:36 Micro: Microbiology 12/28/23 05:46 Blood Culture - Preliminary Blood NEGATIVE TO DATE 12/28/23 05:46 Blood Culture - Preliminary Blood NEGATIVE TO DATE A&P Assessment and plan (1) End stage renal disease on dialysis: See below. Plan 1. End-stage renal disease: On MWF schedule. As the patient has elevaed filling pressures and severe hypertension we will do extra dialysis today to see if we can help lower blood pressure. Placed on renal diet, 2 g sodium restriction 1500 mill fluid restriction 2. Echo reviewed. She has moderate concentric LV hypertrophy with grade 3 out of 4 diastolic dysfunction severely elevated filling pressures normal LV size with an EF of 55%. No pericardial effusion no intracardiac masses. 3. Hypertension: Blood pressure elevated on amlodipine 10 mg daily, Coreg 6.25 twice daily, hydralazine 12.5 3 times daily, lisinopril 40 mg a day. Will do extra dialysis today to see if we can wean her off of her nitro drip. t 4. Management of diabetes mellitus as per medicine. Patient is a labile diabetic. Question of colitis on CT scan. Medications reviewed 5. Anemia: Hemoglobin acceptable for ESRD. no epo- hgb 13.8 and bp is elevated. 6. Metabolic acidosis check lactate level Patient evaluated using audiovisual cart. Patient consents to telle-nephrology and to hemodialysis. Discussed with HD nurse Attestations Medical Necessity Statement*: Severe hypertension. Time Spent in Patient Care: 16 - 35 minutes (>than 50% of time spent in counselling and/or direct pt care on unit). Coding Level of Care Code Acute Code for Chg Fwd Diagnoses End stage renal disease on dialysis N18.6; Z99.2
[2023-12-31 10:42] LABS: Partial Thromboplastin Time 28.6 SECONDS (23.9-36.7)
[2023-12-31 11:06] LABS: Glucose Point of Care 162 mg/dL (70-110)
[2023-12-31] MEDS: isosorbide mononitrate ER 30 mg Tablet PO (11:46)
--- NOTE | 2023-12-31 11:57 | PC.HD ---
Patient on heparin drip; loading/maintenance doses of heparin for HD will be held. Unable to draw from arterial port of HD catheter; lines affixed in reverse configuration.
[2023-12-31] MEDS: insulin lispro 100 unit/1 mL SUBCUT (12:23)
--- NOTE | 2023-12-31 12:42 | P.PN_ITS ---
Subjective 2 Subjective: - Patient was seen this morning, after h er stress test, she did complain of chest pain during her stress test, received morphine, and that seemed to help with her chest discomfort She was seen this morning, currently on heparin drip, nitroglycerin drip currently denying any active chest pain, no nausea, no vomiting, no abdominal pain, no diarrhea, no fevers ? Spoke to cardiology about patient's stress test findings, abnormal left circumflex territory, her complaints of chest pain during stress test, cardiology reviewed stress test/EKG findings, nothing acute, recommended medical management, will transition to Imdur ? Spoke to nursing staff, will take her off nitro drip glycerin drip switched Imdur, anticoagulate with heparin for at least 48 hours given her NSTEMI, likely moved to cardiac stepdown unit Patient is receiving dialysis today Vitals/I&O/Wt Last Vital Signs Temp 98.9 F 12/31/23 12:00 Pulse 69 12/31/23 11:53 Resp 12 12/31/23 11:53 BP 153/77 12/31/23 11:53 Pulse Ox 97 12/31/23 11:47 O2 Del Method Room Air 12/31/23 09:00 O2 Flow Rate 2 12/30/23 20:26 FiO2 21 12/31/23 08:47 12/30/23 12/31/23 12/31/23 22:59 06:59 14:59 Intake Total 170 / 590 187.525 / 777.525 151.60 / 151.60 Balance 170 / -1710 187.525 / -1522.475 151.60 / 151.60 Weight last 48 hrs Weight 52.844 kg Weight 54.6 kg Weight 56.472 kg Physical Exam 2 Const: COMMON NORMALS: no acute distress and patient oriented x3 Resp: COMMON NORMALS: normal respiratory effort, No retractions, No use of accessory muscles and clear to auscultation bilaterally AUSCULTATION: clear to auscultation bilaterally Cardio: COMMON NORMALS: regular rate, regular rhythm, S1 normal heart sound present and S2 normal heart sound present RATE: regular rate RHYTHM: r egular rhythm HEART SOUNDS: S1 normal heart sound present and S2 normal heart sound present GI: COMMON NORMALS: Normal to inspection, nondistended, normoactive bowel sounds present and non-tender Extremity: COMMON NORMALS: no pedal edema Neuro: COMMON NORMALS: patient oriented x3 Psych: COMMON NORMALS: mental status grossly normal Data 12/31/23 04:36 12/31/23 04:36 A&P Assessment and plan (1) Fluid overload: - Looks euvolemic Qualifiers: Hypervolemia type: unspecified Qualified Code(s): E87.70 - Fluid overload, unspecified (2) End stage renal disease on dialysis: Consult nephrology, see above (3) Abdominal pain: - Component of colitis - component of diabetic gastroparesis -Continue Reglan Qualifiers: Abdominal location: left upper quadrant Qualified Code(s): R10.12 - Left upper quadrant pain (4) COPD (chronic obstructive pulmonary disease): Patient with history of underlying COPD Budesonide twice daily DuoNeb every 6 hours (5) Diabetes mellitus: - No evidence of diabetic ketoacidosis ? A1c 7.7 ? Low-dose sliding scale (6) Colitis: 2. Rectosigmoid colon wall thickening without adjacent fatty stranding most likely secondary to incomplete distension but colitis could give a similar appearance. ? Plan ? Stool studies ? Serial abdominal exams ? Zosyn (7) Intractable nausea and vomiting: ? Could be a component of diabetic gastroparesis ? Continue Zofran ? Continue Reglan ? Clear liquids (8) Transaminitis: - Acute hep panel ? HIV (9) Chest pain: Qualifiers: Chest pain type: unspecified Qualified Code(s): R07.9 - Chest pain, unspecified Plan Coronary artery disease with recent stenting of RCA. No chest discomfort on presentation. EKG benign. Will ensure she gets her Brilinta, aspirin and other cardiac medications this morning. Multiple other medical problems as outlined in past medical history Chest pain complaints Seems atypical sounds more musculoskeletal -Cath in 11/2023 showed -Conclusions 1. Severe mid LAD stenosis s/p successful revascularization with 1 stent.. 2. Mid Left Anterior Descending to Mid Left Anterior Descending was treated with a Balloon, Drug Eluting Stent, and Balloon. ? Continue home aspirin, Brilinta Serial EKGs consult telemetry monitoring ? Monitor for recurrent chest pain -echo -CONCLUSIONS Moderate concentric left ventricular hypertrophy. Slightly dyskinetic basal inferior wall segment.Grade III/IV diastolic dysfunction (restrictive filling pattern), severely elevated filling pressures. Normal LV size with an ejection fraction of 55%. Mildly increased left atrial size. Mild mitral valve regurgitation. There is no pericardial effusion. There are no intracardiac masses. Compared to the study from 11/27/2023, there may not be a significant change -stress test IMPRESSIONS 1. Abnormal myocardial perfusion imaging with small to medium sized area of prior infarct with minimal nina-infarct ischemia in the left cirucmflex artery territory 2. LV systolic function is mildly reduced with EF of 47% Plan ? Continue aspirin ? Continue statin ? Continue Coreg ? Continue Brilinta next?added Norvasc afterload reducing agent ? Wean off nitroglycerin drip, add Imdur ? Will require 48 hours of anticoagulant therapy ? Receiving dialysis today Hypertensive urgency, continue home blood pressure medications, monitor blood pressure closely Full code Heparin for DVT prophylaxis. -Plan for today monitor for chest pain, moved to CSU Attestations 2 Medical Necessity Statement*: Patient requires hospitalization for chest pain Diagnoses Fluid overload E87.70 Hypervolemia type: unspecified End stage renal disease on dialysis N18.6; Z99.2 Abdominal pain R10.12 Abdominal location: left upper quadrant COPD (chronic obstructive pulmonary disease) J44.9 Diabetes mellitus E11.9 Colitis K52.9 Intractable nausea and vomiting R11.2 Transaminitis R74.01 Chest pain R07.9 Chest pain type: unspecified
[2023-12-31 13:12] LABS: Lactate (Lactic Acid level) 0.6 mmol/L (0.5-2.2)
[2023-12-31 13:28] LABS: Glucose Point of Care 124 mg/dL (70-110)
[2023-12-31] MEDS: lidocaine 2% viscous 15 ML, aluminum-mag hydrox-simethicon 30 ML, sucralfate oral liq 1 GM PO (14:25)
--- NOTE | 2023-12-31 15:01 | PC.HD ---
Per automation tech's verbal orders, patient ran for 3.0 hours instead of prescribed 3.5 hours. UF goal was 3000; due to low BPs during treatment, 1535 was removed.
[2023-12-31 16:31] LABS: Glucose Point of Care 79 mg/dL (70-110)
[2023-12-31] MEDS: morphine 4 mg/mL SDV 1 mL 0.5 MG IVP (16:43)
--- NOTE | 2023-12-31 17:07 | NMCV_ITS ---
NM bryn perf SPECT r/s* [id number] Donita Aguilar Age: 38 Gender: F : 1985 Exam Date: 12/31/2023 17:07 Ordering Phys: Shola Carrera MD Technologist: TALHA Pruett Exam Location: [facility] Indications: CP, CAD STRESS TEST Please see separate stress test report in [facility] for full findings IMAGE PROTOCOL Rest/Stress 1 Lexiscan Day Radiopharmaceutical Dose (mCi) Administration Site Administered by Rest: Tc-99m 10.8 IV TALHA Pruett Sestamibi Stress:Tc-99m 32.6 IV TALHA Pruett Sestamibi Rest: 31-Dec-2023 60 Discovery 630 Stress: 31-Dec-2023 30 Discovery 630 0.4mg Lexiscan. Supine position only as patient was unable to lay prone. SPECT RESULTS Technical Quality: Good Raw Data Analysis: Subdiaphragmatic activity Image Corrections: No attenuation or motion correction applied Summed Stress Score: 7 Summed Rest Score: 8 Summed Difference Score: 3 PERFUSION FINDINGS There is small to medium sized, mostly fixed perfusion defect noted in the inferolateral wall. This is consistent with small to medium sized area of prior infarct with minimal nina-infarct ischemia in the left circumflex artery territory. FUNCTIONAL RESULTS (calculated via Gated SPECT) Stress Image LV EF (%): 47 Stress EDV (mL):144 TID: 1.14 Stress ESV (mL):76 FUNCTIONAL FINDINGS: LV systolic function is mildly reduced with EF of 47% IMPRESSIONS 1. Abnormal myocardial perfusion imaging with small to medium sized area of prior infarct with minimal nina-infarct ischemia in the left cirucmflex artery territory 2. LV systolic function is mildly reduced with EF of 47% Riccardo Burch MD (Electronically Signed) Final Date: 31 December 2023 10:00 S
[2023-12-31 17:25] LABS: Partial Thromboplastin Time 34.6 SECONDS (23.9-36.7)
[2023-12-31 18:05] LABS: Add Urine Microscopic? YES; Bilirubin Urine Neg (Negative); Blood Urine 2+ (Negative); Glucose Urine UA 4+ (Normal); Ketones Urine 1+ (Negative); Leukocyte Esterase Urine Negative (Negative); Nitrate Urine Negative (Negative); Protein Urine 3+ (Negative); Specific Gravity, Urine 1.015 (1.005-1.030); Urine Appearance Clear (CLEAR); Urine Color Yellow (Yellow); Urobilinogen Urine Norm (Negative); pH Urine 7 (5-7)
[2023-12-31 18:12] LABS: Amphetamines Screen Urine Negative (Negative); Barbiturates Screen Urine Negative (Negative); Benzodiazepines Screen Urine Negative (Negative); Cocaine Screen Urine Negative (Negative); Opiate Screen Urine Positive (Negative); PCP Screen Urine Negative (Negative); THC Screen Urine Negative (Negative)
[2023-12-31] MEDS: amoxicillin-clav 875-125 mg Tablet 1 TAB PO (18:23)
[2023-12-31 18:24] LABS: Add Urine Culture? Yes; Bacteria Urine TRACE /hpf; Mucus Urine TRACE /hpf; RBC Urine 15-25 /hpf (0-2); Squamous Epithelial Cell Urine 0-4 /hpf (0-5); Transitional Epi Cells Urine 0-4 /hpf; WBC Urine 0-4 /hpf (0-5)
--- NOTE | 2023-12-31 18:56 | PC.NURSE ---
Late note: bladders canned patient due to complaints of abdominal discomfort, and lack of urine output (though pt is oliguric at baseline due to CKD). Bladder scan shows 700+ retained. nurse alerted Dr smith and received orders for a straight cath. straight cath performed. 580mL of urine drained.
--- NOTE | 2023-12-31 18:58 | PC.NURSE ---
Shift SUmmary: Went for a stress test in the morning, showed abnormalities and cardiology suggests medical management. Currently on a heparin drip which has been increased per protocol. Next PTT at midnight. Nitroglycerin drip discontinued. 1.5 liters removed during dialysis. Frequent complaints of abdominal pain which patient has been receiving morphine for, and a one time dose of a gi cocktail. Gi cocktail seemed more effective than morphine with pain relief.
[2023-12-31] MEDS: atorvastatin 40 mg Tablet PO (20:09)
[2023-12-31] MEDS: HYDROmorphone 1 mg/mL INJ 1 mL 0.2 MG IVP (20:10)
[2023-12-31] MEDS: lisinopril 20 mg Tablet 40 MG PO (20:52)
[2023-12-31 21:34] LABS: Glucose Point of Care 163 mg/dL (70-110)
--- NOTE | 2023-12-31 21:46 | PC.NURSE ---
Patient transfer: Patient was transferred to [facility], all patient belongings with patient. Receiving nurse at bedside.
[2024-01-01] VITALS (26 sets, daily range): BP systolic 139–198; BP diastolic 73–106; PULSE 58–73; RESP 0–18; TEMP 36.5–37.3; O2SAT 92–99
[2024-01-01] MEDS: pantoprazole 40 mg SDV IVP ×2 (01:02→12:30)
[2024-01-01 01:05] LABS: Partial Thromboplastin Time 37.2 SECONDS (23.9-36.7)
[2024-01-01] MEDS: heparin 5,000 unit/mL INJ 1 mL IV (01:23)
[2024-01-01] MEDS: ipratropium-albuterol 3 mL Neb INHALATION (02:23)
[2024-01-01] MEDS: morphine 4 mg/mL SDV 1 mL 0.5 MG IVP ×2 (02:38→11:14)
[2024-01-01] MEDS: metoclopramide 5 mg/mL SDV 2 mL IVP ×2 (02:42→08:39)
[2024-01-01 03:12] LABS: Basophils # 0.1 10^3/uL (0.0-0.1); Basophils % 0.8 %; Eosinophils # 0.1 10^3/uL (0.0-0.8); Eosinophils % 1.8 %; Hematocrit 43.3 % (36-47); Lymphocytes # 1.9 10^3/uL (0.8-4.8); Lymphocytes % 30.6 %; Mean Corpuscular HGB Conc 31.4 g/dL (30-55); Mean Corpuscular Hemoglobin 27.8 pg (27-33); Mean Corpuscular Volume 88.5 fl (85-98); Mean Platelet Volume 10.2 fL (7.4-10.4); Monocytes # 0.6 10^3/uL (0.2-0.9); Neutrophils # 3.52 10^3/uL (1.8-7.7); Neutrophils % 57.6 %; Nucleated Red Blood Cells % 0 %; Platelet Count 189 10^3/cmm (157-399); Red Blood Count 4.89 10^6/uL (3.85-5.65); Red Cell Distribution Width 15.2 % (12.1-15.1); White Blood Count 6.11 10^3/uL (3.29-11.43)
[2024-01-01 03:33] LABS: Anion Gap 19.1 (5-19); Blood Urea Nitrogen 25 mg/dL (6-20); Calcium 8.5 mg/dL (8.5-10.5); Carbon Dioxide 23 mmol/L (22-29); Chloride 100 mmol/L (98-107); Creatinine Clr Calc Pharmacy 16.5025; Glomerular Filtration Rate 14.7 mL/min (90-130); Glucose 138 mg/dL (65-115); Osmolality Calculated 293 mOsm/kg (285-295); Potassium 4.1 mmol/L (3.5-5.1); Sodium 138 mmol/L (136-145)
[2024-01-01 03:34] LABS: Lactic Sepsis W/Reflex 0.9 mmol/L (0.5-2.2)
[2024-01-01] MEDS: heparin drip 25,000 UNIT/500 ML PREMIX 23 UNIT IV (05:05)
[2024-01-01] MEDS: hyDRALAzine 20 mg/mL INJ 1 mL 10 MG IVP (05:06)
[2024-01-01] MEDS: aspirin 81 mg EC Tablet PO (05:07)
[2024-01-01] MEDS: ondansetron 2 mg/ML SDV 2 mL 4 MG IVP (05:07)
[2024-01-01 06:28] LABS: Glucose Point of Care 136 mg/dL (70-110)
--- NOTE | 2024-01-01 07:13 | P.PN_ITS ---
Subjective 2 Subjective: abdominal pain. nausea. no sob. no cp. no benavides Medications: Reviewed: Yes Medication Review Details: Current Medications Acetaminophen (Acetaminophen 325 Mg Tablet) 650 mg PO Q6H PRN PRN Reason: Mild/Mod Pain Or Temp >/= 101 Albuterol/Ipratropium (Ipratropium-Albuterol 3 Ml Neb) 3 ml INHALATION Q6H.RESP SHAY Last Admin: 01/01/24 02:23 Dose: 3 ml Amlodipine Besylate (Amlodipine 5 Mg Tablet) 5 mg PO DAILY [facility] Amoxicillin/Clavulanate Potassium (Amoxicillin-Clav 875-125 Mg Tablet) 1 tab PO BID [facility]; Protocol Last Admin: 12/31/23 18:23 Dose: 1 tab Aspirin (Aspirin 81 Mg Ec Tablet) 81 mg PO QAM [facility] Last Admin: 01/01/24 05:07 Dose: 81 mg Atorvastatin Calcium (Atorvastatin 40 Mg Tablet) 40 mg PO BEDTIME SHAY Last Admin: 12/31/23 20:09 Dose: 40 mg Budesonide (Budesonide 0.5 Mg/2 Ml Neb) 0.5 mg INHALATION BID.RESPIRATORY SHAY Last Admin: 12/31/23 20:12 Dose: 0.5 mg Carvedilol (Carvedilol 12.5 Mg Tablet) 6.25 mg PO BID [facility] Last Admin: 12/31/23 18:24 Dose: 6.25 mg Escitalopram Oxalate (Escitalopram 10 Mg Tablet) 10 mg PO DAILY [facility] Last Admin: 12/31/23 08:53 Dose: 10 mg Gabapentin (Gabapentin 100 Mg Capsule) 100 mg PO TID [facility] Last Admin: 12/31/23 20:10 Dose: 100 mg Glucagon (Glucagon 1 Mg/Ml Kit 1 Ml) 1 mg IM ONCE PRN; Protocol PRN Reason: Adult Acute Hypoglycemia Nursing Prot. Heparin Sodium (Porcine) (Heparin 5,000 Unit/Ml Inj 1 Ml) 0 unit IV PRN PRN; Protocol PRN Reason: Heparin weight-base protocol Last Admin: 01/01/24 01:23 Dose: 2,200 unit Hydralazine HCl (Hydralazine 20 Mg/Ml Inj 1 Ml) 10 mg IVP Q4H PRN PRN Reason: HYPERTENSION Last Admin: 01/01/24 05:06 Dose: 10 mg Hydralazine HCl (Hydralazine 25 Mg Tablet) 12.5 mg PO Q8H SHAY Last Admin: 12/31/23 06:19 Dose: 12.5 mg Sodium Chloride (Sodium Chloride 0.9%) 1,000 mls @ 0 mls/hr IV .Q0M PRN PRN Reason: hypotension or symptomatic Albumin Human (Albumin) 12.5 gm in 50 mls @ 60 mls/hr IV PRN PRN PRN Reason: Hypotension and/or symptomatic Dextrose (D5w) 500 mls @ 0 mls/hr IV ONCE PRN; Protocol PRN Reason: Adult Acute Hypoglycemia Prot Dextrose (D10w) 125 mls @ 750 mls/hr IV PRN PRN; Protocol PRN Reason: Adult Acute Hypoglycemia Nursing Protocol Dextrose (D10w) 250 mls @ 1,000 mls/hr IV PRN PRN; Protocol PRN Reason: Adult Acute Hypoglycemia Nursing Protocol Heparin Sodium/Sodium Chloride (Heparin Drip) 25,000 unit in 500 mls @ 0 mls/hr IV .Q0M SHAY; Protocol Last Admin: 01/01/24 05:05 Dose: 21.06 unit/kg/hr, 23 mls/hr Insulin Human Lispro (Insulin Lispro 100 Unit/1 Ml) 0 unit SUBCUT TIDWM [facility]; Protocol Last Admin: 12/31/23 18:22 Dose: Not Given Isosorbide Mononitrate (Isosorbide Mononitrate Er 30 Mg Tablet) 30 mg PO DAILY [facility] Last Admin: 12/31/23 11:46 Dose: 30 mg Lisinopril (Lisinopril 20 Mg Tablet) 40 mg PO BEDTIME [facility] Last Admin: 12/31/23 20:52 Dose: 40 mg Metoclopramide HCl (Metoclopramide 5 Mg/Ml Sdv 2 Ml) 5 mg IVP Q6H PRN PRN Reason: NAUSEA AND VOMITING Last Admin: 01/01/24 02:42 Dose: 5 mg Morphine Sulfate (Morphine 4 Mg/Ml Sdv 1 Ml) 0.5 mg IVP Q6H PRN PRN Reason: SEVERE PAIN Last Admin: 01/01/24 02:38 Dose: 0.5 mg Naloxone HCl (Naloxone 0.4 Mg/Ml Sdv) 0.1 mg IVP Q2M PRN PRN Reason: RESPIRATORY RATE < 8/MIN Nitroglycerin (Nitroglycerin 0.4 Mg Sublingual Tablet) 0.4 mg SUBLINGUAL Q5M PRN PRN Reason: CHEST PAIN Ondansetron HCl (Ondansetron 2 Mg/Ml Sdv 2 Ml) 4 mg IVP Q6H PRN PRN Reason: vomiting, or N/V if npo Last Admin: 01/01/24 05:07 Dose: 4 mg Pantoprazole Sodium (Pantoprazole 40 Mg Sdv) 40 mg IVP Q12H [facility] Last Admin: 01/01/24 01:02 Dose: 40 mg Sevelamer Carbonate (Sevelamer 800 Mg Tablet) 800 mg PO TID [facility] Last Admin: 12/31/23 20:09 Dose: 800 mg Ticagrelor (Ticagrelor 90 Mg Tablet) 90 mg PO BID [facility] Last Admin: 12/31/23 18:24 Dose: 90 mg Vitals/I&O/Wt Last Vital Signs Temp 97.9 F 01/01/24 07:05 Pulse 58 L 01/01/24 07:05 Resp 17 01/01/24 07:05 BP 166/101 01/01/24 07:05 Pulse Ox 96 01/01/24 07:05 O2 Del Method Room Air 01/01/24 04:00 O2 Flow Rate 2 12/30/23 20:26 FiO2 21 12/31/23 08:47 12/31/23 01/01/24 01/01/24 22:59 06:59 14:59 Intake Total 489.5 / 644.25 275.767 / 920.017 Output Total 2415 / 2415 0 / 2415 Balance -1925.5 / -1770.75 275.767 / -1494.983 Weight last 48 hrs Weight 52.798 kg Weight 50.5 kg Weight 52.844 kg Weight 54.6 kg Physical Exam 2 Narrative: Patient is in bed, no respiratory distress vs noted HEENT normocephalic atraumatic. Vital signs noted. BP high Neck is supple. Lungs are clear. Heart is regular. Abdomen is soft, tender positive bowel sounds. Extremities have no edema. Dialysis access right IJ permacath. Neuro awake alert oriented x 3 and moves all extremities. Patient was seen and examined with the help of a nurse using A/V equipment. Data 01/01/24 02:59 01/01/24 02:59 A&P Assessment and plan (1) End stage renal disease on dialysis: See below. Plan 1. End-stage renal disease: On MWF schedule. We did dialysis yesterday. Will plan on repeating dialysis tomorrow. She is currently off of schedule from her regular dialysis. Placed on renal diet, 2 g sodium restriction 1500 mill fluid restriction 2. Echo reviewed. She has moderate concentric LV hypertrophy with grade 3 out of 4 diastolic dysfunction severely elevated filling pressures normal LV size with an EF of 55%. No pericardial effusion no intracardiac masses. 3. Hypertension: Blood pressure elevated on Coreg 6.25 twice daily, hydralazine 12.5 3 times daily, lisinopril 40 mg a day. agree w/ restarting amlodipine 4. Management of diabetes mellitus as per medicine. Patient is a labile diabetic. Question of colitis on CT scan. Medications reviewed 5. Anemia: Hemoglobin acceptable for ESRD. no epo- hgb 13.6 and bp is elevated. 6. COPD per medicine Patient evaluated using audiovisual cart. Patient consents to telle-nephrology and to hemodialysis. Attestations 2 Medical Necessity Statement*: per medical team Time Spent in Patient Care: 16 - 35 minutes (>than 50% of time sp ent in counselling and/or direct pt care on unit) . Coding Level of Care Code Acute Code for Chg Fwd Diagnoses End stage renal disease on dialysis N18.6; Z99.2
[2024-01-01 08:18] LABS: Partial Thromboplastin Time 51.1 SECONDS (23.9-36.7)
[2024-01-01] MEDS: escitalopram 10 mg Tablet PO (08:34)
[2024-01-01] MEDS: ticagrelor 90 mg Tablet PO ×2 (08:35→17:16)
[2024-01-01] MEDS: gabapentin 100 mg Capsule PO ×2 (08:36→17:16)
[2024-01-01] MEDS: amlodipine 5 mg Tablet PO (08:36)
[2024-01-01] MEDS: amoxicillin-clav 875-125 mg Tablet 1 TAB PO ×2 (08:37→17:16)
[2024-01-01] MEDS: carvedilol 12.5 mg Tablet 6.25 MG PO ×2 (08:38→17:15)
[2024-01-01] MEDS: isosorbide mononitrate ER 30 mg Tablet PO (08:38)
--- NOTE | 2024-01-01 09:15 | CTR_ITS ---
PROCEDURE INFORMATION: Exam: CT Abdomen And Pelvis Without Contrast Exam date and time: 01/01/2024 10:19 AM Age: 38 years old Clinical indication: Nausea and vomiting; Abdominal pain; Prior surgery; Surgery date: 6+ months; Surgery type: Gb; Additional info: Abdominal walter, n/v TECHNIQUE: Imaging protocol: Computed tomography of the abdomen and pelvis without contrast. Radiation optimization: All CT scans at this facility use at least one of these dose optimization techniques: automated exposure control; mA and/or kV adjustment per patient size (includes targeted exams where dose is matched to clinical indication); or iterative reconstruction. COMPARISON: CT angio chest w abd pel w con 12/27/2023 7:41 AM RADIATION DOSE METRICS: Total DLP (mGy-cm): 347.38 FINDINGS: Lungs: There is a 9 mm centrally calcified granuloma in the anterior aspect of the right middle lobe. Linear atelectasis or fibrosis is noted in the deep left costophrenic sulcus. Liver: Normal. No mass. Gallbladder and biliary ducts: Surgical clips are noted in the gallbladder fossa compatible with a prior cholecystectomy. Pancreas: Normal. No ductal dilation. Spleen: Calcified granulomas are noted in the spleen. Adrenal glands: Normal. No mass. Kidneys and ureters: The kidneys are normal in overall size hydronephrosis or nephrolithiasis. Stomach and bowel: There is no evidence for small bowel obstruction. Stool is distributed throughout the colon. Appendix: No evidence of appendicitis. Intraperitoneal space: Unremarkable. No free air. No significant fluid collection. Vasculature: Unremarkable. No abdominal aortic aneurysm. Lymph nodes: Retroperitoneal lymphadenopathy is not as well depicted on the current noncontrast study. Urinary bladder: Unremarkable as visualized. Reproductive: Unremarkable as visualized. Bones/joints: There is L5 spondylolysis and grade 1 L5-S1 spondylolisthesis. The bones are generally osteopenic for age. Soft tissues: There is mild soft tissue anasarca. Other findings: Noncontrast technique limits assessment. CT/CT abdomen pelvis wo con [id number] IMPRESSION: Limited noncontrast study. Granulomatous disease. Retroperitoneal lymphadenopathy not as well depicted on the current noncontrast study. Please correlate clinically and with the recent prior contrast enhanced CT of the abdomen.
[2024-01-01 09:45] LABS: Alanine Aminotransferase 32 U/L (0-33); Albumin Level 3.7 g/dL (3.5-5.2); Alkaline Phosphatase 130 U/L (35-105); Aspartate Amino Transferase 22 U/L (0-32); Gamma Glutamyl Transferase 45 U/L (5-36); Globulin 3.5 g/dL (1.3-4.6); Lipase 27 U/L (13-60); Total Bilirubin 0.4 mg/dL (0.15-1.2); Total Protein 7.2 g/dL (6.6-8.7)
[2024-01-01 09:52] LABS: Procalcitonin 0.59 ng/mL (0-0.5)
--- NOTE | 2024-01-01 11:35 | PC.SOCIAL ---
IMM Updated Updated pt on IMM. No questions voiced. Provided pt a copy. Initialed, dated, & timed copy in chart.
[2024-01-01 11:47] LABS: Glucose Point of Care 190 mg/dL (70-110)
[2024-01-01 13:25] LABS: Lactate Dehydrogenase 243 U/L (135-214)
--- NOTE | 2024-01-01 14:03 | P.DS_ITS ---
Discharge Providers Date of Admission: 12/28/23 16:47 Date of Discharge: January 01, 2024 Attending Provider at Admission: Ruben Rust MD Attending Provider at Discharge: Shola Carrera MD Primary Care Provider: SUZANNE Dias Diagnoses at Discharge Discharge Diagnosis (1) End stage renal disease on dialysis: Status: Acute Reason for Visit Reason for Visit: SOB,Swollen legs Hospital Course Hospital Course Donita Aguilar is a 38 year old female who presents to the emergency department with swelling in her lower extremities, shortness of breath especially when she lies down. She has not had any chest discomfort. While in the emergency department she developed some abdominal pain, vomiting and diarrhea. Father who is present with her, reports that she did quite well yesterday, went shopping, and had a big meal. She skipped dialysis Saturday, by report that she was too tired after an ER visit. No history of fever. Patient does not supplement her history much as she is just received fentanyl, and closes her eyes frequently. Patient was admitted to [facility] for multiple medical problems First problem, complaints of recurrent chest pain during her hospitalization Chest pain complaints Seems atypical sounds more musculoskeletal chest pain, reproducible on palpation -Cath in 11/2023 showed -Conclusions 1. Severe mid LAD stenosis s/p successful revascularization with 1 stent.. 2. Mid Left Anterior Descending to Mid Left Anterior Descending was treated with a Balloon, Drug Eluting Stent, and Balloon. ? Continue home aspirin, Brilinta Serial EKGs consult telemetry monitoring ? Monitor for recurrent chest pain -echo -CONCLUSIONS Moderate concentric left ventricular hypertrophy. Slightly dyskinetic basal inferior wall segment.Grade III/IV diastolic dysfunction (restrictive filling pattern), severely elevated filling pressures. Normal LV size with an ejection fraction of 55%. Mildly increased left atrial size. Mild mitral valve regurgitation. There is no pericardial effusion. There are no intracardiac masses. Compared to the study from 11/27/2023, there may not be a significant change ? Given her recent history of LAD stent placement, no acute ST-T wave changes, troponins were elevated in the 200s, but no significant delta troponin -stress test IMPRESSIONS 1. Abnormal myocardial perfusion imaging with small to medium sized area of prior infarct with minimal nina-infarct ischemia in the left cirucmflex artery territory 2. LV systolic function is mildly reduced with EF of 47% ? Spoke to cardiology about results, recommended medical management with outpatient follow-up She was monitored on a heparin drip for 48 hours, did require nitroglycerin drip for chest pain ? She was transition to Imdur, continue her aspirin, Brilinta, add Norvasc, blood pressure control next ?overall chest pain resolved ? Will be discharged with close follow-up cardiology as outpatient if she has any recurrent chest pain to go to emergency room During hospitalization she had complaints of hypertensive urgency, which rec prior titration of her home blood pressure medications During the hospitalization she had findings concerning for colitis, complaints of diffuse abdominal pain, she was initially managed with Zosyn, diarrhea has resolved, will be discharged on Augmentin She also had transaminitis during hospitalization, acute hep panel negative, transaminitis has stabilized follow-up with primary care provider as outpatient She also had fluid overload during hospitalization requiring dialysis Type 1 diabetes mellitus history, A1c 7.7, discharged on her home insulin sliding scale, with close follow-up with Dr. Ortega as outpatient She had complaints of recurrent abdominal pain and nausea vomiting during hospitalization ? Multiple CT scans done during her hospitalization no acute findings, AST 22, ALT 32, alk phos 130, GGT 45, lipase 27 ? On exam on exam throughout hospitalization, she had diffuse tenderness in all 4 quadrant, no guarding, no rebound, no rigidity, had good bowel sounds in all 4 quadrants diarrhea had resolved ? I think the etiology behind her recurrent nausea vomiting abdominal pain is likely diabetic gastroparesis to her to her poorly controlled type 1 diabetes As she has had hospitalizations for diabetic gastroparesis in the past ? I had a detailed discussion with her about small-volume feeds multiple times throughout the day avoid meals that make her feel bloated, avoid over hyperglycemic meals that are rich in carbs/sugar/fats -She can use Reglan as needed for nausea vomiting ? Follow-up with Dr. Ortega as outpatient Patient was also found to have retroperitoneal lymphadenopathy on repeat CT scan on day of discharge, without contrast ? There was multiple attempts to try to get an IV line in her big enough to give her a contrast load to get do a CT scan with IV contrast however after multiple attempts patient refused further needle sticks ? No cat bite, no dog bite, no history of lymphoma or leukemia ? Nonetheless, her ESR is now within normal limits, CRP within normal limits, Pro-[place] 0.5, will have patient follow-up with Dr. Nur as outpatient for further testing and evaluation ? We did remove a tick of her during this hospitalization, were not sure how long it was attached for I discharged her on 10 days of doxycycline Physical Exam Const: COMMON NORMALS: no acute distress and patient oriented x3 Resp: COMMON NORMALS: normal respiratory effort, No retractions, No use of accessory muscles and clear to auscultation bilaterally AUSCULTATION: clear to auscultation bilaterally Cardio: COMMON NORMALS: regular rate, regular rhythm, S1 normal heart sound present and S2 normal heart sound present RATE: regular rate RHYTHM: regular rhythm HEART SOUNDS: S1 normal heart sound present and S2 normal heart sound present GI: COMMON NORMALS: Normal to inspection, nondistended, normoactive bowel sounds present and non-tender Extremity: COMMON NORMALS: no pedal edema Neuro: COMMON NORMALS: patient oriented x3 Psych: COMMON NORMALS: mental status grossly normal Discharge Data Studies Completed and Pending Completed Studies During Hospitalization Category Date Time Status CT abdomen pelvis wo con [id number] Stat Cat Scan 01/01/24 09:15 Completed CTA chest [CT angio chest w abd pel w con] Stat Cat Scan 12/27/23 06:37 Completed Sestamibi Stress Test Request Routine Exams 12/30/23 17:07 Draft XR chest 1V portable [id number] Stat Exams 12/27/23 06:17 Completed NM bryn perf SPECT r/s* [id number] Routine Nuc Med 12/31/23 17:07 Completed CV. echo complete* [id number] Routine Ultrasound 12/30/23 14:56 Completed Pending at discharge Category Date Time Status CT abdomen pelvis w con* [id number] Stat Cat Scan 01/01/24 12:25 Ordered CHANELLE Profile Rheumatology Stat Lab 01/01/24 12:26 Ordered Bartonella Species AB(IgG,IgM) Routine Lab 01/01/24 12:26 Ordered Basic Metabolic Panel AM LABS Lab 01/02/24 04:00 Ordered Basic Metabolic Panel AM LABS Lab 01/03/24 04:00 Ordered Blood Culture Stat Lab 12/28/23 05:46 Results C.Diff PCR (Lab) Routine Lab 12/28/23 08:53 Ordered Complete Blood Count w/Auto AM LABS Lab 01/02/24 04:00 Ordered Complete Blood Count w/Auto AM LABS Lab 01/03/24 04:00 Ordered EBV IGG & IGM Stat Lab 07/10/24 12:26 Ordered EBV Viral Capsid AB IGM Stat Lab 01/01/24 12:26 Ordered Francisella tularensis IgM/IgG Routine Lab 01/01/24 12:26 Ordered Immunochemical Fecal OCB Routine Lab 12/28/23 08:53 Ordered Lactoferrin Routine Lab 12/28/23 08:53 Ordered OVA and Parasites, Conc and PE Routine Lab 12/28/23 08:53 Ordered Salmonella / Shigella / Campy Routine Lab 12/28/23 08:53 Ordered Serum Drug Panel 7 Routine Lab 12/30/23 17:27 Received Tick Panel Stat Lab 01/01/24 12:26 Ordered Urine Culture Routine Lab 12/31/23 17:10 Received Radiology Impressions Chest X-Ray 12/27/23 06:17 IMPRESSION: No significant change. Chest/Abdomen/Pelvis CT 12/27/23 06:37 IMPRESSION: 1. Numerous mildly enlarged mediastinal and right hilar lymph nodes similar to prior exam. 2. Postsurgical changes posteriorly in the left hilum and extending along the medial aspect of the left lower lobe consistent with partial left lower lobectomy unchanged from prior exam. Focal area of pleural-based consolidation noted in this area unchanged. 3. Small bilateral pleural effusions right greater than left with adjacent lung interstitial thickening similar to prior exam however there is increase in ground-glass opacities seen in the right upper and lower lobes suggesting increased edema and/or pneumonia. IMPRESSION: 1. There is nonspecific urinary bladder wall thickening, under distention versus cystitis. 2. Rectosigmoid colon wall thickening without adjacent fatty stranding most likely secondary to incomplete distension but colitis could give a similar appearance. Abdomen/Pelvis CT 01/01/24 09:15 IMPRESSION: Limited noncontrast study. Granulomatous disease. Retroperitoneal lymphadenopathy not as well depicted on the current noncontrast study. Please correlate clinically and with the recent prior contrast enhanced CT of the abdomen. ADDENDUM: 01/01/24 [id number] THIS REPORT CONTAINS FINDINGS THAT MAY BE CRITICAL TO PATIENT CARE. The findings were verbally communicated via telephone conference with SHOLA CARRERA at 11:50 AM CDT on 01/01/2024. The findings were acknowledged and understood. Laboratory Results WBC 6.11 10^3/uL (3.29-11.43) 01/01/24 02:59 RBC 4.89 10^6/uL (3.85-5.65) 01/01/24 02:59 Hgb 13.60 g/dL (11.27-16.99) 01/01/24 02:59 Hct 43.3 % (36-47) 01/01/24 02:59 MCV 88.5 fl (85-98) 01/01/24 02:59 MCH 27.8 pg (27-33) 01/01/24 02:59 MCHC 31.4 g/dL (30-55) 01/01/24 02:59 RDW 15.2 % (12.1-15.1) H 01/01/24 02:59 Plt Count 189 10^3/cmm (157-399) 01/01/24 02:59 MPV 10.2 fL (7.4-10.4) 01/01/24 02:59 Neut % (Auto) 57.6 % 01/01/24 02:59 Lymph % (Auto) 30.6 % 01/01/24 02:59 [place] % (Auto) 9.0 % 01/01/24 02:59 Eos % (Auto) 1.8 % 01/01/24 02:59 Baso % (Auto) 0.8 % 01/01/24 02:59 Neut # (Auto) 3.52 10^3/uL (1.8-7.7) 01/01/24 02:59 Lymph # (Auto) 1.9 10^3/uL (0.8-4.8) 01/01/24 02:59 [place] # (Auto) 0.6 10^3/uL (0.2-0.9) 01/01/24 02:59 Eos # (Auto) 0.1 10^3/uL (0.0-0.8) 01/01/24 02:59 Baso # (Auto) 0.1 10^3/uL (0.0-0.1) 01/01/24 02:59 Nucleated RBC % (auto) 0 % 01/01/24 02:59 Nucleated RBCs # 0.0 /100WBC 01/01/24 02:59 ESR 7 mm/hr (0-15) 12/30/23 04:48 APTT 51.1 SECONDS (23.9-36.7) H 01/01/24 07:30 Specimen Type Arterial 12/28/23 08:59 Sample Site Radial, left 12/28/23 08:59 ABG pH 7.36 (7.35-7.45) 12/28/23 08:59 ABG pCO2 35.4 mmHg (35-45) 12/28/23 08:59 ABG pO2 79.2 mmHg (80.0-100.0) L 12/28/23 08:59 ABG PO2/FiO2 Ratio 377 12/28/23 08:59 ABG HCO3 20.1 mmol/L (22-26) L 12/28/23 08:59 ABG Base Excess -4.7 mmol/L (-2.0-2.0) L 12/28/23 08:59 [place] Test Pos 12/28/23 08:59 Hematocrit 34.7 % (37-47) L 12/28/23 08:59 O2 Delivery Device Room air 12/28/23 08:59 FiO2 21.0 % 12/28/23 08:59 Loading Shovel Oiler ID [place] 12/28/23 08:59 Sodium 138 mmol/L (136-145) 01/01/24 02:59 Potassium 4.1 mmol/L (3.5-5.1) 01/01/24 02:59 Chloride 100 mmol/L (98-107) 01/01/24 02:59 Carbon Dioxide 23 mmol/L (22-29) 01/01/24 02:59 Anion Gap 19.1 (5-19) H 01/01/24 02:59 BUN 25 mg/dL (6-20) H 01/01/24 02:59 Creatinine 3.5 mg/dL (0.5-0.9) H 01/01/24 02:59 GFR Calculation 14.7 mL/min (90-130) L 01/01/24 02:59 Glucose 138 mg/dL (65-115) H 01/01/24 02:59 POC Glucose 190 mg/dL (70-110) H 01/01/24 11:43 Estimat Average Glucose 174 12/28/23 05:29 Hemoglobin A1c 7.7 % (4.0-6.0) H 12/28/23 05:29 Calculated Osmolality 293 mOsm/kg (285-295) 01/01/24 02:59 Lactic Acid 0.9 mmol/L (0.5-2.2) 01/01/24 02:59 Lactate 0.6 mmol/L (0.5-2.2) 12/31/23 12:25 Calcium 8.5 mg/dL (8.5-10.5) 01/01/24 02:59 Phosphorus 7.4 mg/dL (2.5-4.5) H 12/27/23 06:08 Magnesium 2.0 mg/dL (1.7-2.3) 12/28/23 05:29 Total Bilirubin 0.4 mg/dL (0.15-1.2) 01/01/24 02:59 Direct Bilirubin 0.20 mg/dL (0.00-0.30) 01/01/24 02:59 GGT 45 U/L (5-36) H 01/01/24 02:59 AST 22 U/L (0-32) 01/01/24 02:59 ALT 32 U/L (0-33) 01/01/24 02:59 Alkaline Phosphatase 130 U/L (35-105) H 01/01/24 02:59 Lactate Dehydrogenase 243 U/L (135-214) H 01/01/24 02:59 Troponin T Baseline 231 ng/L (0-10) H* 12/30/23 10:47 Troponin T 120 Minute 226.7 ng/L (0-10) H 12/30/23 13:13 Delta Troponin T -4.3 ABS# (0-10) L 12/30/23 13:13 Troponin T Hi Sens 6Hr 221.8 ng/L (0-10) H 12/30/23 17:27 Troponin T Hi Sens 6Hr Delta -9.2 ng/L (0-12) L 12/30/23 17:27 C-Reactive Protein 3.0 mg/L (0.0-4.9) 01/01/24 02:59 NT-Pro-B Natriuret Pep > 53600 pg/mL (0-125) H 12/31/23 04:36 Total Protein 7.2 g/dL (6.6-8.7) 01/01/24 02:59 Albumin 3.7 g/dL (3.5-5.2) 01/01/24 02:59 Globulin 3.5 g/dL (1.3-4.6) 01/01/24 02:59 Lipase 27 U/L (13-60) 01/01/24 02:59 Procalcitonin 0.59 ng/mL (0-0.5) H 01/01/24 02:59 Random Cortisol 30.90 ug/dL (2.47-19.5) H 12/27/23 07:23 Urine Color Yellow (Yellow) 12/31/23 17:10 Urine Appearance Clear (CLEAR) 12/31/23 17:10 Urine pH 7 (5-7) 12/31/23 17:10 Ur Specific Center 1.015 (1.005-1.030) 12/31/23 17:10 Urine Protein 3+ (Negative) H 12/31/23 17:10 Urine Glucose (UA) 4+ (Normal) H 12/31/23 17:10 Urine Ketones 1+ (Negative) H 12/31/23 17:10 Urine Blood 2+ (Negative) H 12/31/23 17:10 Urine Nitrate Negative (Negative) 12/31/23 17:10 Urine Bilirubin Neg (Negative) 12/31/23 17:10 Urine Urobilinogen Norm mg/dL (Negative) 12/31/23 17:10 Ur Leukocyte Esterase Negative (Negative) 12/31/23 17:10 Urine RBC 15-25 /hpf (0-2) H 12/31/23 17:10 Urine WBC 0-4 /hpf (0-5) H 12/31/23 17:10 Ur Squamous Epith Cells 0-4 /hpf (0-5) H 12/31/23 17:10 Ur Transition Epith Cell 0-4 /hpf 12/31/23 17:10 Amorphous Sediment Not Reportable 12/31/23 17:10 Urine Bacteria Trace /hpf (NONE) 12/31/23 17:10 Urine Mucus Trace /hpf 12/31/23 17:10 Urine Opiates Screen Positive ng/mL (Negative) H 12/31/23 17:10 Ur Barbiturates Screen Negative ng/mL (Negative) 12/31/23 17:10 Ur Phencyclidine Scrn Negative ng/mL (Negative) 12/31/23 17:10 Ur Amphetamines Screen Negative ng/mL (Negative) 12/31/23 17:10 U Benzodiazepines Scrn Negative ng/mL (Negative) 12/31/23 17:10 Urine Cocaine Screen Negative ng/mL (Negative) 12/31/23 17:10 U Marijuana (THC) Screen Negative ng/mL (Negative) 12/31/23 17:10 Ethyl Alcohol < 10 mg/dL (0-10) 12/28/23 05:29 Serum Ketones Negative (Negative) 12/28/23 13:05 Hepatitis A IgM Ab Non-reactive (Nonreactive) 12/28/23 13:05 Hep Bs Antigen Non-reactive (Nonreactive) 12/28/23 13:05 Hep Bs Antibody 18.8 (11.5-1000) 12/27/23 06:08 Hep B Core Total Ab Non-reactive (Nonreactive) 12/27/23 06:08 Hep B Core IgM Ab Non-reactive (Nonreactive) 12/28/23 13:05 Hepatitis C Antibody Non-reactive (Nonreactive) 12/28/23 13:05 HIV 1&2 Ab & HIV 1 Ag Non-reactive (Non-Reactiv) 12/28/23 13:05 HIV 1&2 Antibody Non-reactive (Non-Reactiv) 12/28/23 13:05 Vitals Last Vital Signs Temp 97.7 F 01/01/24 11:40 Pulse 67 01/01/24 11:40 Resp 14 01/01/24 11:40 BP 139/82 01/01/24 11:40 Pulse Ox 95 01/01/24 11:40 O2 Del Method Room Air 01/01/24 11:40 O2 Flow Rate 2 12/30/23 20:26 FiO2 21 12/31/23 08:47 Discharge Plan Discharge Patient Disposition: Home Condition: Stable Prescriptions: New nitroglycerin 0.4 mg Tablet, Sublingual 0.4 mg sublingual Q5M PRN (Reason: Chest Pain) 30 Days Qty: 30 0RF isosorbide mononitrate 30 mg Tablet Extended Release 24 Hr 30 mg PO DAILY 30 Days Qty: 30 0RF amlodipine 5 mg Tablet 5 mg PO DAILY 30 Days Qty: 30 0RF doxycycline monohydrate 100 mg Tablet 100 mg PO BID 10 Days Qty: 20 0RF amoxicillin-pot clavulanate 875-125 mg tablet 1 tab PO BID 5 Days Qty: 10 0RF metoclopramide HCl [Reglan] 5 mg tablet 5 mg PO Q8H PRN (Reason: nausea and vomiting) 5 Days Qty: 15 0RF pantoprazole [Protonix] 40 mg tablet,delayed release (DR/EC) 40 mg PO BID 30 Days Qty: 60 0RF insulin aspart U-100 [Novolog FlexPen U-100 Insulin] 100 unit/mL (3 mL) insulin pen See Rx Instructions .ROUTE .COMPLEX Qty: 15 0RF Rx Instructions: Inject, subcut, 3 times daily, after meals, based on sliding scale provided Continued aspirin 81 mg tablet,delayed release (DR/EC) 81 mg PO QAM fluticasone furoate-vilanterol [Breo Ellipta] 100-25 mcg/dose Blister With Device 1 inh INHALATION DAILY PRN (Reason: Shortness Of Breath) nitroglycerin [Nitrostat] 0.4 mg Tablet, Sublingual 0.4 mg SUBLINGUAL Q5M PRN (Reason: Chest Pain) Rx Instructions: do not exceed 3 doses per episode sevelamer carbonate 800 mg Tablet 800 mg PO TID Qty: 90 0RF atorvastatin 40 mg tablet 40 mg PO BEDTIME clonidine HCl 0.1 mg tablet See Rx Instructions .ROUTE .COMPLEX PRN (Reason: Blood Pressure) Rx Instructions: TAKE 1 TABLET IF SYSTOLIC BLOOD PRESSURE IS GREATER THAN 160, REPEAT ONCE IF SYSTOLIC BLOOD PRESSURE IS STILL OVER 160 AFTER 1 HOUR. lisinopril 40 mg tablet 40 mg PO BEDTIME Brilinta 90 mg tablet 90 mg PO BID Qty: 60 0RF gabapentin 100 mg Capsule 100 mg PO TID Lexapro 10 mg Tablet 10 mg PO DAILY Changed carvedilol 12.5 mg tablet 6.25 mg PO BID 30 Days Qty: 30 0RF No Action (DME) Dexcom G6 Vessel Specialist Misc See Rx Instructions .Route Qty: 1 0RF Rx Instructions: As directed (DME) Dexcom G6 Sensor Device See Rx Instructions .Route Qty: 3 0RF Rx Instructions: As directed (DME) Dexcom G6 Transmitter Device See Rx Instructions .Route Qty: 1 0RF Rx Instructions: As directed Discharge Orders: Discharge Order (Routine); Ordered 01/01/24 Ordered By: Shola Carrera Referrals: Elizabeth Dougherty FNP [Primary Care Provider] - Riccardo Burch M.D [Physician] - 1 week Jadon Nur MD [Hospitalist] - 1 week (retro peritonea;l lymphadenoapthy) Discharge Diet: Diabetic Discharge Activity: Resume usual activity Patient Instructions: Nitroglycerin (By mouth), Metoclopramide (By mouth), Doxycycline (By mouth), Amoxicillin (By mouth), Amlodipine (By mouth), Isosorbide Mononitrate (By mouth) (Imdur, Imdur ER, Ismo), Pantoprazole (By mouth) (Protonix), Insulin Aspart, Recombinant (By injection) (Novolog, Novolog..., Acute Nausea and Vomiting (DC), Abdominal Pain (DC), COPD Stoplight, Opioid Safety Activity Restrictions/Additional Instructions: - For your diabetic gastroparesis, please eat small volume via meals, multiple times throughout the day, avoid heavy glycemic meals, monitor blood sugars closely, Reglan as needed to help with gastric motility, ? Please hydrate well drink plenty of electrolyte balanced fluids Please monitor blood sugars closely for your type 1 diabetes ? Please take doxycycline for your tick bite ? Take Augmentin for your colitis ? For your retroperitoneal lymphadenopathy please follow-up with Dr. Nur ? If you have any recurrent chest pain please go to emergency room of discharge on Imdur for your chest pain please follow-up with cardiology -Please monitor your blood sugars closely -Monitor your blood sugars 3 times daily as after meals -Please record your blood sugars, and a blood sugar log -For your NovoLog -Please inject blood sugar after meals based on sliding scale provided -Do not inject insulin if you do not eat as hypoglycemia kills -This is a NovoLog sliding scale -Insulin sliding ?fingerstick? Insulin ?141-180?0 units/sq 181-220?2 units/sq ?221-260?4 units/sq ?261-300 6 units/sq ?301-350?8 units/sq ?351-400 10 units/sq ?401-450?12 units/sq >450? 14units/sq -If your blood sugar is greater than 500 go to the emergency room -If your blood sugar is less than 60 or at anytime you feel lightheaded or dizzy or diaphoretic or have chest palpitations check your blood sugar, and eat a hard candy or drink orange juice and go immediately to the emergency room -Remember hypoglycemia kills, so if his blood sugar is less than 60 we have to increase it by taking in a sugary meal such as a hard candy or orange juice and go to the emergency room -If you have any questions please call us where here to help Discharge Attestations Time Spent in Discharge Care*: greater than 30 min Status at Discharge: Cognitive status at discharge: cognitively intact , Behavioral status at discharge: cooperative and independent in ADL's , Quality Metrics Clinical Quality Measures [ No reported AMI, CVA or VTE this stay] Coding Level of Care Code 18305 Total time (in minutes) for Discharge: 45 Diagnoses End stage renal disease on dialysis N18.6; Z99.2
[2024-01-01] MEDS: doxycycline 100 mg Tablet PO ×2 (14:04→17:16)
[2024-01-01 16:13] LABS: Glucose Point of Care 176 mg/dL (70-110)
--- NOTE | 2024-01-01 17:34 | PC.NURSE ---
Discharge Note Patient discharged to [home] via [w/c to POV] accompanied by [family]. Discharge instructions reviewed with patient and/or access services representative. Mobile pharmacy medications and/or prescriptions provided. Belongings/home medications returned.
== END 2024-01-01 17:35 | disposition home or self-care (01) | DRG 698 ==
LOC: ER 06:10 → MEDSURG 17:48 → ICU 12-30 21:16 → CSU 12-31 21:42
PROVIDERS: Emergency Medicine; Hospitalist; Internal Medicine; Internal Medicine Nephrology; Admitting Provider Internal Medicine; Emergency Provider Emergency Medicine; PCP Nurse Practitioner Family; Visit Provider Family Medicine
DX: E10.22 Type 1 diabetes mellitus with diabetic chronic kidney disease (principal); I21.4 Non-ST elevation (NSTEMI) myocardial infarction; I13.2 Hypertensive heart and chronic kidney disease with heart failure and with stage 5 chronic kidney disease, or end stage renal disease; E87.20 Acidosis, unspecified; N18.6 End stage renal disease; E87.70 Fluid overload, unspecified; I50.9 Heart failure, unspecified; K52.9 Noninfective gastroenteritis and colitis, unspecified; I16.0 Hypertensive urgency; R59.0 Localized enlarged lymph nodes; E10.43 Type 1 diabetes mellitus with diabetic autonomic (poly)neuropathy; K31.84 Gastroparesis; E10.40 Type 1 diabetes mellitus with diabetic neuropathy, unspecified; I25.10 Atherosclerotic heart disease of native coronary artery without angina pectoris; E78.5 Hyperlipidemia, unspecified; I27.20 Pulmonary hypertension, unspecified; N31.9 Neuromuscular dysfunction of bladder, unspecified; F17.200 Nicotine dependence, unspecified, uncomplicated; K76.0 Fatty (change of) liver, not elsewhere classified; E87.5 Hyperkalemia; Z91.158 Patient's noncompliance with renal dialysis for other reason; Z99.2 Dependence on renal dialysis; Z79.82 Long term (current) use of aspirin; Z95.5 Presence of coronary angioplasty implant and graft; Z86.16 Personal history of COVID-19; Z87.01 Personal history of pneumonia (recurrent)
CPT/HCPCS: 36415; 36416; 36600; 51702; 71045; 71275; 74176; 74177; 78452; 80048; 80053; 80074; 80076; 80306; 80307; 81001; 82009; 82533; 82803; 82962; 82977; 83036; 83605; 83615; 83690; 83735; 83880; 84100; 84145; 84484; 85025; 85651; 85730; 86140; 86160; 86611; 86664; 86665; 86668; 86705; 86706; 87040; 87086; 87340; 87806; 90935; 93005; 93017; 93306; 94640; 96372; 96374; 96375; 96376; 99285; A9500; C9113; G0378; J0360; J1100; J1170; J1644; J1815; J2270; J2405; J2543; J2765; J2785; J3010; J3490; J7626; Q0162; Q3014; Q9967

== ENCOUNTER 2024-01-06 11:33 | Emergency (ER) | payer MEDICARE, MEDICAID, SELFPAY ==
[2024-01-06 11:36] VITALS: BP 191/101; PULSE 72; RESP 18; TEMP 37; O2SAT 97; BMI 25.2
--- NOTE | 2024-01-06 11:41 | ECG_ITS ---
[facility] Test Date: 2024-01-06 Pat Name: Donita Aguilar Department: Room: Gender: Female [employer]: : [id number] Requested By: Ronny Ayala Order Number: [id number] Faviola MD: Riccardo Burch M.D. Measurements Intervals [place] Rate: 72 P: 51 NV: 174 QRS: 84 QRSD: 112 T: 51 QT: 405 QTc: 446 Interpretive Statements SINUS RHYTHM POSSIBLE ANTERIOR MYOCARDIAL INFARCTION , OF INDETERMINATE AGE [30 ms Q WAVE IN V3/V4, OR R < 0.2 mV IN V4] Compared to ECG 12/30/2023 14:20:28 No significant changes Electronically Signed On 01-06-2024 14:21:04 CDT by Riccardo Burch M.D. [id number] f
--- NOTE | 2024-01-06 11:44 | XRR_ITS ---
PROCEDURE INFORMATION: Exam: XR Chest Exam date and time: 01/06/2024 12:58 PM Age: 38 years old Clinical indication: Pain; Angina pectoris; Prior surgery; Surgery date: 6+ months; Surgery type: Lll lobectomy; Additional info: Cp TECHNIQUE: Imaging protocol: Radiologic exam of the chest. Views: 1 view. COMPARISON: CT angio chest w abd pel w con 12/27/2023 7:41 AM FINDINGS: Tubes, catheters and devices: Right IJ venous catheter with its tip terminating in the right atrium. Lungs: Low lung volumes. Curvilinear bilateral opacities which can be seen with emphysematous lung changes. No lung consolidations. Pleural spaces: Unremarkable. No pleural effusion. No pneumothorax. Heart/Mediastinum: Unremarkable. No cardiomegaly. Bones/joints: Unremarkable. XR/XR chest 1V portable [id number] IMPRESSION: 1. No focal consolidations. 2. Emphysematous lung changes.
--- NOTE | 2024-01-06 11:49 | ED_ITS ---
HPI - Chest Pain 2 General: Chief Complaint: Chest Pain Stated Complaint: chest pain Time Seen by Provider: 01/06/24 11:36 Source: patient Mode of arrival: ambulatory Limitations: no limitations History of Present Illness: 38-year-old female is very well-known to the ER history of end-stage renal disease patient states she was going to dialysis today and started having a sharp chest pain states continued of the pain she rates her pain a 7 out of 10 she denies any worse improving factors denies any vomiting or diarrhea. Associated symptoms: Deny abdominal pain, dyspnea, fever(s), nausea or vomiting Review of Systems 2 Const: Denies: fever(s), chills, body aches or change in appetite ENMT: Denies: throat pain or dental pain Card: Reports: chest pain Resp: Denies: dyspnea GI: Denies: abdominal pain, nausea, vomiting or diarrhea Musc: Denies: neck pain or back pain Skin/Breast: Denies: rash Neuro: Denies: headache(s) PFSH ED 2 PFSH: Medical History Transaminitis Intractable nausea and vomiting Hyperlipidemia HTN (hypertension) Diabetic gastroparesis Acute cystitis with hematuria CKD (chronic kidney disease) stage 3, GFR 30-59 ml/min ERICA (acute kidney injury) CHF (congestive heart failure), NYHA class III Pulmonary hypertension CAD (coronary artery disease) Neurogenic bladder Acute kidney injury superimposed on chronic kidney disease Metabolic acidosis COVID-19 Tobacco dependence Drug abuse Anemia Community acquired pneumonia Acute hyperglycemia Esophagitis Complicated UTI (urinary tract infection) Long-term insulin use History of pancreatitis Celiac disease Recurrent UTI Non-alcoholic fatty liver disease Arnold-Chiari malformation Diabetic gastroparesis -continue Reglan Diabetic neuropathy associated with type 1 diabetes mellitus Headache, common migraine, intractable, with status migrainosus Cystitis Pleural effusion 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 Uncontrolled type 1 diabetes mellitus Lymphadenitis Ureterolithiasis Pyelonephritis PID (pelvic inflammatory disease) Anxiety Sepsis Respiratory failure Pancreatitis DKA (diabetic ketoacidoses) Migraine headache Chronic headache Surgical History History of lung surgery -s/p LLL lobectomy secondary to cavitary pneumonia (2016) History of endoscopy History of cholecystectomy Family History Grandfather Diabetes Other Heart disease Hypertension Social History Smoking and tobacco/nicotine status: never used tobacco/nicotine Second hand smoke exposure: Yes Alcohol intake: never Substance/Drug Use: current Household members: children Housing: House Marital status: Single Current occupational status: unemployed Physical Exam 2 Const: COMMON NORMALS: no acute distress, patient oriented x3 and healthy appearing HENMT: COMMON NORMALS: normocephalic and atraumatic HEAD & SCALP: n ormocephalic and atraumatic Neck/C-Spine: COMMON NORMALS: full ROM and supple Chest: COMMONS NORMALS: normal inspection of the chest Resp: COMMON NORMALS: normal respiratory effort, No retractions, No use of accessory muscles and clear to auscultation bilaterally AUSCULTATION: clear to auscultation bilaterally Cardio: COMMON NORMALS: regular rate, regular rhythm and No murmurs present (Cardio) RATE: regular rate RHYTHM: regular rhythm GI: COMMON NORMALS: Normal to inspection, nondistended, normoactive bowel sounds present, Soft to palpation, non-tender and no masses PALPATION: Yes Soft to palpation Extremity: COMMON NORMALS: normal to inspection and full ROM Neuro: COMMON NORMALS: patient oriented x3, moves all extremities and no focal motor deficits Psych: COMMON NORMALS: mental status grossly normal, Normal thought process present and cooperative THOUGHT PROCESS: Normal thought process present Skin: COMMON NORMALS: no rashes or lesions noted and no wounds GENERAL SKIN EXAM: no rashes or lesions noted Course 2 Vital Signs: Vital signs: Vital Signs Temperature 98.6 F 01/06/24 11:36 Pulse Rate 65 01/06/24 15:49 Respiratory Rate 20 H 01/06/24 13:02 Blood Pressure 95/51 01/06/24 15:49 Pulse Oximetry 96 01/06/24 15:49 Oxygen Delivery Me thod Room Air 01/06/24 15:49 MDM - Chest Pain Medical Decision Making Patient presents here with chest pain that is since resolved her 2-hour troponin had a negative delta no signs of ACS she stable for discharge follow-up PCP return if worsening. Medical Records I reviewed the patient's medical records. Lab Data I reviewed the patient's lab results. 01/06/24 13:05 01/06/24 13:05 Radiology Impressions Chest X-Ray 01/06/24 11:44 IMPRESSION: 1. No focal consolidations. 2. Emphysematous lung changes. Laboratory Results WBC 8.04 10^3/uL (3.29-11.43) 01/06/24 13:05 RBC 3.84 10^6/uL (3.85-5.65) L 01/06/24 13:05 Hgb 10.80 g/dL (11.27-16.99) L 01/06/24 13:05 Hct 33.6 % (36-47) L 01/06/24 13:05 MCV 87.5 fl (85-98) 01/06/24 13:05 MCH 28.1 pg (27-33) 01/06/24 13:05 MCHC 32.1 g/dL (30-55) 01/06/24 13:05 RDW 15.1 % (12.1-15.1) 01/06/24 13:05 Plt Count 173 10^3/cmm (157-399) 01/06/24 13:05 MPV 11.0 fL (7.4-10.4) H 01/06/24 13:05 Neut % (Auto) 72.1 % 01/06/24 13:05 Lymph % (Auto) 15.7 % 01/06/24 13:05 [place] % (Auto) 6.8 % 01/06/24 13:05 Eos % (Auto) 4.6 % 01/06/24 13:05 Baso % (Auto) 0.6 % 01/06/24 13:05 Neut # (Auto) 5.79 10^3/uL (1.8-7.7) 01/06/24 13:05 Lymph # (Auto) 1.3 10^3/uL (0.8-4.8) 01/06/24 13:05 [place] # (Auto) 0.6 10^3/uL (0.2-0.9) 01/06/24 13:05 Eos # (Auto) 0.4 10^3/uL (0.0-0.8) 01/06/24 13:05 Baso # (Auto) 0.1 10^3/uL (0.0-0.1) 01/06/24 13:05 Nucleated RBC % (auto) 0 % 01/06/24 13:05 Nucleated RBCs # 0.0 /100WBC 01/06/24 13:05 Sodium 140 mmol/L (136-145) 01/06/24 13:05 Potassium 4.2 mmol/L (3.5-5.1) 01/06/24 13:05 Chloride 102 mmol/L (98-107) 01/06/24 13:05 Carbon Dioxide 22 mmol/L (22-29) 01/06/24 13:05 Anion Gap 20.1 (5-19) H 01/06/24 13:05 BUN 33 mg/dL (6-20) H 01/06/24 13:05 Creatinine 4.8 mg/dL (0.5-0.9) H 01/06/24 13:05 GFR Calculation 10.2 mL/min (90-130) L 01/06/24 13:05 Glucose 245 mg/dL (65-115) H 01/06/24 13:05 Calculated Osmolality 297 mOsm/kg (285-295) H 01/06/24 13:05 Calcium 8.1 mg/dL (8.5-10.5) L 01/06/24 13:05 Total Bilirubin 0.3 mg/dL (0.15-1.2) 01/06/24 13:05 AST 34 U/L (0-32) H 01/06/24 13:05 ALT 33 U/L (0-33) 01/06/24 13:05 Alkaline Phosphatase 103 U/L (35-105) 01/06/24 13:05 Troponin T Baseline 281 ng/L (0-10) H* 01/06/24 13:05 Troponin T 120 Minute 278.7 ng/L (0-10) H 01/06/24 15:06 Delta Troponin T -2.3 ABS# (0-10) L 01/06/24 15:06 NT-Pro-B Natriuret Pep 97229 pg/mL (0-125) H 01/06/24 13:05 Total Protein 6.3 g/dL (6.6-8.7) L 01/06/24 13:05 Albumin 3.0 g/dL (3.5-5.2) L 01/06/24 13:05 Globulin 3.3 g/dL (1.3-4.6) 01/06/24 13:05 Lipase 39 U/L (13-60) 01/06/24 13:05 All radiology interpretation(s) finalized by discharge EKG Data EKG 1: I personally reviewed and interpreted this EKG as follows: EKG interpretation date: 01/06/24 EKG interpretation time: 11:41 Interpretation: nsr hr 72no st or t wave abnormalities qrs 112 qtc 430 EKG 2: I personally reviewed and interpreted this EKG as follows: EKG interpretation date: 01/06/24 EKG interpretation time: 13:35 Interpretation: nsr hr [address] elevation qrs 103 qtc 425 Discharge Plan Discharge Patient Disposition: Home Clinical Impression: Chest pain Condition: Stable Prescriptions: No Action (DME) Dexcom G6 Weblogic Administrator Misc See Rx Instructions .Route Qty: 1 0RF Rx Instructions: As directed (DME) Dexcom G6 Sensor Device See Rx Instructions .Route Qty: 3 0RF Rx Instructions: As directed (DME) Dexcom G6 Transmitter Device See Rx Instructions .Route Qty: 1 0RF Rx Instructions: As directed aspirin 81 mg tablet,delayed release (DR/EC) 81 mg PO QAM fluticasone furoate-vilanterol [Breo Ellipta] 100-25 mcg/dose Blister With Device 1 inh INHALATION DAILY PRN (Reason: Shortness Of Breath) sevelamer carbonate 800 mg Tablet 800 mg PO TID Qty: 90 0RF atorvastatin 40 mg tablet 40 mg PO BEDTIME clonidine HCl 0.1 mg tablet See Rx Instructions .ROUTE .COMPLEX PRN (Reason: Blood Pressure) Rx Instructions: TAKE 1 TABLET IF SYSTOLIC BLOOD PRESSURE IS GREATER THAN 160, REPEAT ONCE IF SYSTOLIC BLOOD PRESSURE IS STILL OVER 160 AFTER 1 HOUR. lisinopril 40 mg tablet 40 mg PO BEDTIME Brilinta 90 mg tablet 90 mg PO BID Qty: 60 0RF gabapentin 100 mg Capsule 100 mg PO TID escitalopram oxalate [Lexapro] 10 mg Tablet 10 mg PO DAILY isosorbide mononitrate 30 mg Tablet Extended Release 24 Hr 30 mg PO DAILY 30 Days Qty: 30 0RF amlodipine 5 mg Tablet 5 mg PO DAILY 30 Days Qty: 30 0RF doxycycline monohydrate 100 mg Tablet 100 mg PO BID 10 Days Qty: 20 0RF nitroglycerin 0.4 mg Tablet, Sublingual 0.4 mg sublingual Q5M PRN (Reason: Chest Pain) 30 Days Qty: 30 0RF pantoprazole [Protonix] 40 mg tablet,delayed release (DR/EC) 40 mg PO BID 30 Days Qty: 60 0RF insulin aspart U-100 [Novolog FlexPen U-100 Insulin] 100 unit/mL (3 mL) insulin pen See Rx Instructions .ROUTE .COMPLEX Qty: 15 0RF Rx Instructions: Inject, subcut, 3 times daily, after meals, based on sliding scale provided clopidogrel 75 mg tablet 75 mg PO DAILY carvedilol 12.5 mg tablet 12.5 mg PO BID Discharge Orders: Discharge ED (Routine); Ordered 01/06/24 Ordered By: Ronny Ayala Referrals: Elizabeth Dougherty FNP [Primary Care Provider] - Discharge Diet: Advance as tolerated Discharge Activity: Resume usual activity Patient Instructions: Chest Pain (ED) Coding Level of Care Code ED Professional Athletes Coach for Reji Chandler
[2024-01-06 13:02] VITALS: RESP 20; O2SAT 98
[2024-01-06] MEDS: morphine 4 mg/mL SDV 1 mL IVP (13:02)
[2024-01-06 13:12] LABS: Basophils # 0.1 10^3/uL (0.0-0.1); Basophils % 0.6 %; Eosinophils # 0.4 10^3/uL (0.0-0.8); Eosinophils % 4.6 %; Hematocrit 33.6 % (36-47); Lymphocytes # 1.3 10^3/uL (0.8-4.8); Lymphocytes % 15.7 %; Mean Corpuscular HGB Conc 32.1 g/dL (30-55); Mean Corpuscular Hemoglobin 28.1 pg (27-33); Mean Corpuscular Volume 87.5 fl (85-98); Monocytes # 0.6 10^3/uL (0.2-0.9); Monocytes % 6.8 %; Neutrophils # 5.79 10^3/uL (1.8-7.7); Neutrophils % 72.1 %; Nucleated Red Blood Cells % 0 %; Platelet Count 173 10^3/cmm (157-399); Red Blood Count 3.84 10^6/uL (3.85-5.65); Red Cell Distribution Width 15.1 % (12.1-15.1); White Blood Count 8.04 10^3/uL (3.29-11.43)
--- NOTE | 2024-01-06 13:12 | PC.PHAR ---
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 Original Note: PT STATES SHE DOES TAKE BRILINTA 90MG AND PLAVIX 75MG DAILY.
[2024-01-06 13:16] VITALS: BP 191/101; PULSE 68; O2SAT 95
[2024-01-06 13:35] LABS: Troponin(5th) Baseline 281 ng/L (0-10)
[2024-01-06 13:36] LABS: Alkaline Phosphatase 103 U/L (35-105); Chloride 102 mmol/L (98-107); Potassium 4.2 mmol/L (3.5-5.1); Sodium 140 mmol/L (136-145)
--- NOTE | 2024-01-06 13:44 | ECG_ITS ---
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 Measurements Intervals [place] Rate: 65 P: 1 VT: 174 QRS: -27 QRSD: 103 T: 93 QT: 413 QTc: 432 Interpretive Statements SINUS RHYTHM LEFT VENTRICULAR HYPERTROPHY AND ST-T CHANGE [VOLTAGE CRITERIA PLUS ST/T ABNORMALITY] POSSIBLE ANTERIOR MYOCARDIAL INFARCTION , PROBABLY OLD [30 ms Q WAVE IN V3/V4, OR R < 0.2 mV IN V4] Compared to ECG 01/06/2024 11:41:55 Left ventricular hypertrophy now present ST (T wave) deviation now present Myocardial infarct finding still present Electronically Signed On 01-06-2024 14:21:40 CDT by Riccardo Burch M.D. [id number]
[2024-01-06 13:55] LABS: Alanine Aminotransferase 33 U/L (0-33); Anion Gap 20.1 (5-19); Aspartate Amino Transferase 34 U/L (0-32); Blood Urea Nitrogen 33 mg/dL (6-20); Calcium 8.1 mg/dL (8.5-10.5); Carbon Dioxide 22 mmol/L (22-29); Globulin 3.3 g/dL (1.3-4.6); Glomerular Filtration Rate 10.2 mL/min (90-130); Glucose 245 mg/dL (65-115); Lipase 39 U/L (13-60); Osmolality Calculated 297 mOsm/kg (285-295); Total Bilirubin 0.3 mg/dL (0.15-1.2); Total Protein 6.3 g/dL (6.6-8.7)
[2024-01-06 14:17] LABS: NT Pro B Type Natriuretic Pept 49203 pg/mL (0-125)
[2024-01-06 15:49] VITALS: BP 95/51; PULSE 65; O2SAT 96
[2024-01-06 16:01] LABS: Troponin 5 2HR 278.7 ng/L (0-10); Troponin 5 2HR Delta -2.3 ABS# (0-10)
[2024-01-06 16:11] VITALS: BP 95/51; PULSE 65; RESP 20; TEMP 37; O2SAT 96
== END 2024-01-06 16:12 | disposition home or self-care (01) ==
PROVIDERS: Emergency Provider Emergency Medicine; PCP Nurse Practitioner Family
DX: R07.9 Chest pain, unspecified (principal); Z79.82 Long term (current) use of aspirin; Z79.02 Long term (current) use of antithrombotics/antiplatelets; Z79.4 Long term (current) use of insulin; Z77.22 Contact with and (suspected) exposure to environmental tobacco smoke (acute) (chronic); E11.22 Type 2 diabetes mellitus with diabetic chronic kidney disease; I13.2 Hypertensive heart and chronic kidney disease with heart failure and with stage 5 chronic kidney disease, or end stage renal disease; I50.9 Heart failure, unspecified; N18.6 End stage renal disease; Z99.2 Dependence on renal dialysis; I25.10 Atherosclerotic heart disease of native coronary artery without angina pectoris
CPT/HCPCS: 36415; 71045; 80053; 83690; 83880; 84484; 85025; 93005; 96374; 99285; J2270

== ENCOUNTER → 2024-01-07 10:30 | Outpatient (BNVA) | payer MEDICARE, MEDICAID, SELFPAY | PROVIDERS: PCP Nurse Practitioner Family; Visit Provider Internal Medicine | DX: E10.42 Type 1 diabetes mellitus with diabetic polyneuropathy (principal); E10.65 Type 1 diabetes mellitus with hyperglycemia; E78.2 Mixed hyperlipidemia; K31.84 Gastroparesis; Z87.19 Personal history of other diseases of the digestive system; K90.0 Celiac disease; E16.0 Drug-induced hypoglycemia without coma; T38.3X5A Adverse effect of insulin and oral hypoglycemic [antidiabetic] drugs, initial encounter; Z79.4 Long term (current) use of insulin; R74.01 Elevation of levels of liver transaminase levels; E10.43 Type 1 diabetes mellitus with diabetic autonomic (poly)neuropathy; E10.649 Type 1 diabetes mellitus with hypoglycemia without coma; X58.XXXA Exposure to other specified factors, initial encounter | CPT/HCPCS: 99215 ==

== ENCOUNTER 2024-01-09 19:37 | Emergency (ER) | payer MEDICARE, MEDICAID, SELFPAY ==
[2024-01-09 19:46] VITALS: BP 99/59; PULSE 63; RESP 14; TEMP 36.7; O2SAT 100
--- NOTE | 2024-01-09 19:55 | ECG_ITS ---
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 Measurements Intervals [place] Rate: 63 P: 38 AL: 188 QRS: -7 QRSD: 111 T: 43 QT: 450 QTc: 461 Interpretive Statements SINUS RHYTHM MODERATE INTRAVENTRICULAR CONDUCTION DELAY [110+ ms QRS DURATION] NONSPECIFIC T-WAVE ABNORMALITY Compared to ECG 01/06/2024 13:35:44 Intraventricular conduction delay now present T-wave abnormality now present Left ventricular hypertrophy no longer present ST (T wave) deviation no longer present Myocardial infarct finding no longer present Electronically Signed On 01-10-2024 7:00:57 CDT by Riccardo Burch M.D. [id number] f
--- NOTE | 2024-01-09 19:55 | XRR_ITS ---
PROCEDURE INFORMATION: Exam: XR Chest Exam date and time: 01/09/2024 8:09 PM Age: 38 years old Clinical indication: Pain; Shortness of breath; Chest pressure; Prior surgery; Surgery date: 6+ months; Surgery type: Port for dialysis. Lll lobectomy. ; Additional info: Cp TECHNIQUE: Imaging protocol: Radiologic exam of the chest. Views: 1 view. COMPARISON: CR XR chest 1V portable [id number] 01/06/2024 12:58 PM FINDINGS: Tubes, catheters and devices: There is a tunneled dialysis catheter which remains in place with its tip in the region of the right atrium. Lungs: Visualized portions of the lungs are clear. Postsurgical changes of partial left pneumonectomy are stable. Pleural spaces: Unremarkable. No pleural effusion. No pneumothorax. Heart/Mediastinum: Heart is within normal limits of size. Bones/joints: Unremarkable. XR/XR chest 1V portable [id number] IMPRESSION: No acute infiltrate.
--- NOTE | 2024-01-09 19:57 | W.ED.GENADLT ---
HPI - General Adult General: Chief complaint: General Medical Stated complaint: CP Time Seen by Provider: 01/09/24 19:54 Source: patient Mode of arrival: ambulatory Limitations: no limitations History of Present Illness: 38-year-old female who is on dialysis she has a dialysis port in the right side of her chest states he used it yesterday and has been having soreness around that port states it hurts to touch. She denies any pain elsewhere except for right at the port. She denies any shortness of breath denies any nausea or vomiting. Associated symptoms: Reports chest pain; Deny dyspnea, headache(s), nausea, rash or vomiting Review of Systems Const: Denies: fever(s), chills, body aches or change in appetite ENMT: Denies: throat pain or dental pain Card: Reports: chest pain Resp: Denies: dyspnea GI: Denies: abdominal pain, nausea, vomiting or diarrhea Musc: Denies: neck pain or back pain Skin/Breast: Denies: rash Neuro: Denies: headache(s) PFSH ED PFSH: Medical History Transaminitis Intractable nausea and vomiting Hyperlipidemia HTN (hypertension) Diabetic gastroparesis Acute cystitis with hematuria CKD (chronic kidney disease) stage 3, GFR 30-59 ml/min ERICA (acute kidney injury) CHF (congestive heart failure), NYHA class III Pulmonary hypertension CAD (coronary artery disease) Neurogenic bladder Acute kidney injury superimposed on chronic kidney disease Metabolic acidosis COVID-19 Tobacco dependence Drug abuse Anemia Community acquired pneumonia Acute hyperglycemia Esophagitis Complicated UTI (urinary tract infection) Long-term insulin use History of pancreatitis Celiac disease Recurrent UTI Non-alcoholic fatty liver disease Arnold-Chiari malformation Diabetic gastroparesis -continue Reglan Diabetic neuropathy associated with type 1 diabetes mellitus Headache, common migraine, intractable, with status migrainosus Cystitis Pleural effusion 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 Uncontrolled type 1 diabetes mellitus Lymphadenitis Ureterolithiasis Pyelonephritis PID (pelvic inflammatory disease) Anxiety Sepsis Respiratory failure Pancreatitis DKA (diabetic ketoacidoses) Migraine headache Chronic headache Surgical History History of lung surgery -s/p LLL lobectomy secondary to cavitary pneumonia (2016) History of endoscopy History of cholecystectomy Family History Grandfather Diabetes Other Heart disease Hypertension Social History Smoking and tobacco/nicotine status: never used tobacco/nicotine Second hand smoke exposure: Yes Alcohol intake: never Substance/Drug Use: current Household members: children Housing: House Marital status: Single Current occupational status: unemployed Physical Exam Const: COMMON NORMALS: no acute distress, patient oriented x3 and healthy appearing HENMT: COMMON NORMALS: normocephalic and atraumatic HEAD & SCALP: normocephalic and atraumatic Eye: COMMON NORMALS: Equal, round and reactive pupils present and EOMs intact bilaterally PUPIL: Yes Equal, round and reactive pupils present Neck/C-Spine: COMMON NORMALS: full ROM and supple Chest: COMMONS NORMALS: normal inspection of the chest OTHER: Port to the right chest in place she has no bleeding no bruising no redness she does have tenderness to touch at the port reproduces her pain Resp: COMMON NORMALS: normal respiratory effort, No retractions, No use of accessory muscles and clear to auscultation bilaterally AUSCULTATION: clear to auscultation bilaterally Cardio: COMMON NORMALS: regular rate, regular rhythm and No murmurs present (Cardio) RATE: regular rate RHYTHM: regular rhythm Extremity: COMMON NORMALS: normal to inspection and full ROM Neuro: COMMON NORMALS: patient oriented x3, moves all extremities and no focal motor deficits Psych: COMMON NORMALS: mental status grossly normal, Normal thought process present and cooperative THOUGHT PROCESS: Normal thought process present Skin: COMMON NORMALS: no rashes or lesions noted and no wounds GENERAL SKIN EXAM: no rashes or lesions noted Course Vital Signs: Vital signs: Vital Signs Temperature 98.0 F 01/09/24 19:46 Pulse Rate 63 01/09/24 19:46 Respiratory Rate 14 01/09/24 19:46 Blood Pressure 99/59 01/09/24 19:46 Pulse Oximetry 100 01/09/24 19:46 Oxygen Delivery Me thod Room Air 01/09/24 19:46 MDM - General Adult Medical Decision Making Patient presents here with chest wall pain reports well-appearing no signs of infection of the site no signs of cardiac cause for her pain she is point tender over the port x-ray EKG is normal she does receive dialysis tomorrow she stable for discharge at this time Medical Records I reviewed the patient's medical records. XR interpretation done by ED provider, pending radiology final review ED provider radiology interpretation(s): cxr: no acute abnormality Discharge Plan Discharge Patient Disposition: Home Clinical Impression: Chest pain Condition: Stable Prescriptions: No Action (DME) Dexcom G6 Telephone Betting Clerk Misc See Rx Instructions .Route Qty: 1 0RF Rx Instructions: As directed (DME) Dexcom G6 Sensor Device See Rx Instructions .Route Qty: 3 0RF Rx Instructions: As directed (DME) Dexcom G6 Transmitter Device See Rx Instructions .Route Qty: 1 0RF Rx Instructions: As directed aspirin 81 mg tablet,delayed release (DR/EC) 81 mg PO QAM fluticasone furoate-vilanterol [Breo Ellipta] 100-25 mcg/dose Blister With Device 1 inh INHALATION DAILY PRN (Reason: Shortness Of Breath) sevelamer carbonate 800 mg Tablet 800 mg PO TID Qty: 90 0RF atorvastatin 40 mg tablet 40 mg PO BEDTIME clonidine HCl 0.1 mg tablet See Rx Instructions .ROUTE .COMPLEX PRN (Reason: Blood Pressure) Rx Instructions: TAKE 1 TABLET IF SYSTOLIC BLOOD PRESSURE IS GREATER THAN 160, REPEAT ONCE IF SYSTOLIC BLOOD PRESSURE IS STILL OVER 160 AFTER 1 HOUR. lisinopril 40 mg tablet 40 mg PO BEDTIME Brilinta 90 mg tablet 90 mg PO BID Qty: 60 0RF gabapentin 100 mg Capsule 100 mg PO TID escitalopram oxalate [Lexapro] 10 mg Tablet 10 mg PO DAILY isosorbide mononitrate 30 mg Tablet Extended Release 24 Hr 30 mg PO DAILY 30 Days Qty: 30 0RF amlodipine 5 mg Tablet 5 mg PO DAILY 30 Days Qty: 30 0RF doxycycline monohydrate 100 mg Tablet 100 mg PO BID 10 Days Qty: 20 0RF nitroglycerin 0.4 mg Tablet, Sublingual 0.4 mg sublingual Q5M PRN (Reason: Chest Pain) 30 Days Qty: 30 0RF pantoprazole [Protonix] 40 mg tablet,delayed release (DR/EC) 40 mg PO BID 30 Days Qty: 60 0RF insulin aspart U-100 [Novolog FlexPen U-100 Insulin] 100 unit/mL (3 mL) insulin pen See Rx Instructions .ROUTE .COMPLEX Qty: 15 0RF Rx Instructions: Inject, subcut, 3 times daily, after meals, based on sliding scale provided clopidogrel 75 mg tablet 75 mg PO DAILY carvedilol 12.5 mg tablet 12.5 mg PO BID Discharge Orders: Discharge ED (Routine); Ordered 01/09/24 Ordered By: Ronny Ayala Referrals: Elizabeth Dougherty FNP [Primary Care Provider] - Discharge Diet: Advance as tolerated Discharge Activity: Resume usual activity Patient Instructions: Chest Wall Pain (ED) Coding Level of Care Code ED Green Feed Attendant for Reji Chandler
[2024-01-09] MEDS: morphine 4 mg/mL SDV 1 mL IM (20:02)
[2024-01-09] MEDS: ondansetron 2 mg/ML SDV 2 mL 4 MG IM (20:02)
[2024-01-09 21:18] VITALS: BP 109/60; PULSE 64; RESP 15; O2SAT 99
== END 2024-01-09 21:18 | disposition home or self-care (01) ==
PROVIDERS: Emergency Provider Emergency Medicine; PCP Nurse Practitioner Family
DX: R07.9 Chest pain, unspecified (principal); Z79.02 Long term (current) use of antithrombotics/antiplatelets; Z79.82 Long term (current) use of aspirin; Z77.22 Contact with and (suspected) exposure to environmental tobacco smoke (acute) (chronic); E10.22 Type 1 diabetes mellitus with diabetic chronic kidney disease; I13.0 Hypertensive heart and chronic kidney disease with heart failure and stage 1 through stage 4 chronic kidney disease, or unspecified chronic kidney disease; N18.30 Chronic kidney disease, stage 3 unspecified; I50.9 Heart failure, unspecified; I25.10 Atherosclerotic heart disease of native coronary artery without angina pectoris
CPT/HCPCS: 71045; 93005; 96372; 99284; J2270; J2405

== ENCOUNTER 2024-01-19 18:41 | Emergency (ER) | payer MEDICARE, MEDICAID, SELFPAY ==
[2024-01-19 18:49] VITALS: BP 95/65; PULSE 60; RESP 14; TEMP 36.6; O2SAT 99
--- NOTE | 2024-01-19 21:14 | ED_ITS ---
HPI - Abdominal Pain 2 General: Chief Complaint: Abdominal Pain Stated Complaint: Abd pain Time Seen by Provider: 01/19/24 21:13 History of Present Illness: 38-year-old female comes in today with m id epigastric abdominal pain. Patient is concerned due to the fact that she has a history of pancreatitis. Patient appears nontoxic. Patient also has multiple other chronic medical problems including renal failure requiring dialysis, and type 1 diabetes. Review of Systems 2 General: Reports: 10 or more systems reviewed and unremarkable except in HPI and below PFSH ED 2 PFSH: Medical History Transaminitis Intractable nausea and vomiting Hyperlipidemia HTN (hypertension) Diabetic gastroparesis Acute cystitis with hematuria CKD (chronic kidney disease) stage 3, GFR 30-59 ml/min ERICA (acute kidney injury) CHF (congestive heart failure), NYHA class III Pulmonary hypertension CAD (coronary artery disease) Neurogenic bladder Acute kidney injury superimposed on chronic kidney disease Metabolic acidosis COVID-19 Tobacco dependence Drug abuse Anemia Community acquired pneumonia Acute hyperglycemia Esophagitis Complicated UTI (urinary tract infection) Long-term insulin use History of pancreatitis Celiac disease Recurrent UTI Non-alcoholic fatty liver disease Arnold-Chiari malformation Diabetic gastroparesis -continue Reglan Diabetic neuropathy associated with type 1 diabetes mellitus Headache, common migraine, intractable, with status migrainosus Cystitis Pleural effusion 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 Uncontrolled type 1 diabetes mellitus Lymphadenitis Ureterolithiasis Pyelonephritis PID (pelvic inflammatory disease) Anxiety Sepsis Respiratory failure Pancreatitis DKA (diabetic ketoacidoses) Migraine headache Chronic headache Surgical History History of lung surgery -s/p LLL lobectomy secondary to cavitary pneumonia (2017) History of endoscopy History of cholecystectomy Family History Grandfather Diabetes Other Heart disease Hypertension Social History Smoking and tobacco/nicotine status: never used tobacco/nicotine Second hand smoke exposure: Yes Alcohol intake: never Substance/Drug Use: current Household members: children Housing: House Marital status: Single Current occupational status: unemployed Physical Exam 2 Const: COMMON NORMALS: alert HENMT: COMMON NORMALS: normocephalic HEAD & SCALP: normocephalic Neck/C-Spine: COMMON NORMALS: full ROM Resp: COMMON NORMALS: normal respiratory effort and clear to auscultation bilaterally AUSCULTATION: clear to auscultation bilaterally Cardio: COMMON NORMALS: regular rate RATE: regular rate GI: COMMON NORMALS: Soft to palpation INSPECTION: Yes normal to inspection AUSCULTATION: Yes normoactive bowel sounds PALPATION: Yes Soft to palpation and Yes Tenderness to palpation present (GI) (Generalized) : COMMON NORMALS: Yes no CVA tenderness BLADDER/KIDNEY EXAM: Yes no CVA tenderness Back/Pelvis: COMMON NORMALS: no CVA tenderness and thoracic and lumbar spine normal to inspection Extremity: COMMON NORMALS: full ROM Neuro: SENSORIUM/ORIENTATION: Yes alert Skin: COMMON NORMALS: turgor normal GENERAL SKIN EXAM: turgor normal Course 2 Vital Signs: Vital signs: Vital Signs Temperature 97.8 F 01/19/24 18:49 Pulse Rate 71 01/19/24 22:10 Respiratory Rate 18 01/19/24 22:15 Blood Pressure 116/68 01/19/24 22:10 Pulse Oximetry 98 01/19/24 22:15 Oxygen Delivery Me thod Room Air 01/19/24 22:10 MDM - Abdominal Pain Medical Decision Making 38-year-old female comes in today for complaints of mid abdominal pain starting this evening. Patient has a history of pancreatitis, renal failure, type 1 diabetes. On exam patient appears nontoxic. Abdomen soft with some generalized tenderness. Differential diagnosis includes but not limited to gastroparesis, pancreatitis, malingering, constipation. X-ray notes moderate constipation. CBC was unremarkable. CMP was pretty well at baseline for patient. Lipase was 14. Feel patient's abdominal pain is most likely due to constipation. Patient was given a dose of Constulose and was recommended to follow-up with primary care for further instructions. Lab Data 01/19/24 22:10 01/19/24 22:10 Labs/Radiology: Radiology Impressions KUB X-Ray 01/19/24 21:21 IMPRESSION: Moderate stool burden. No evidence of bowel obstruction. Laboratory Results WBC 5.05 10^3/uL (3.29-11.43) 01/19/24 22:10 RBC 4.21 10^6/uL (3.85-5.65) 01/19/24 22:10 Hgb 12.00 g/dL (11.27-16.99) 01/19/24 22:10 Hct 38.0 % (36-47) 01/19/24 22:10 MCV 90.3 fl (85-98) 01/19/24 22:10 MCH 28.5 pg (27-33) 01/19/24 22:10 MCHC 31.6 g/dL (30-55) 01/19/24 22:10 RDW 16.6 % (12.1-15.1) H 01/19/24 22:10 Plt Count 127 10^3/cmm (157-399) L 01/19/24 22:10 MPV 9.6 fL (7.4-10.4) 01/19/24 22:10 Neut % (Auto) 47.8 % 01/19/24 22:10 Lymph % (Auto) 35.4 % 01/19/24 22:10 [place] % (Auto) 9.7 % 01/19/24 22:10 Eos % (Auto) 6.1 % 01/19/24 22:10 Baso % (Auto) 0.8 % 01/19/24 22:10 Neut # (Auto) 2.41 10^3/uL (1.8-7.7) 01/19/24 22:10 Lymph # (Auto) 1.8 10^3/uL (0.8-4.8) 01/19/24 22:10 [place] # (Auto) 0.5 10^3/uL (0.2-0.9) 01/19/24 22:10 Eos # (Auto) 0.3 10^3/uL (0.0-0.8) 01/19/24 22:10 Baso # (Auto) 0.0 10^3/uL (0.0-0.1) 01/19/24 22:10 Nucleated RBC % (auto) 0 % 01/19/24 22:10 Nucleated RBCs # 0.0 /100WBC 01/19/24 22:10 Sodium 141 mmol/L (136-145) 01/19/24 22:10 Potassium 4.5 mmol/L (3.5-5.1) 01/19/24 22:10 Chloride 103 mmol/L (98-107) 01/19/24 22:10 Carbon Dioxide 26 mmol/L (22-29) 01/19/24 22:10 Anion Gap 16.5 (5-19) 01/19/24 22:10 BUN 25 mg/dL (6-20) H 01/19/24 22:10 Creatinine 4.1 mg/dL (0.5-0.9) H 01/19/24 22:10 GFR Calculation 12.2 mL/min (90-130) L 01/19/24 22:10 Glucose 239 mg/dL (65-115) H 01/19/24 22:10 Calculated Osmolality 304 mOsm/kg (285-295) H 01/19/24 22:10 Calcium 8.4 mg/dL (8.5-10.5) L 01/19/24 22:10 Total Bilirubin 0.4 mg/dL (0.15-1.2) 01/19/24 22:10 AST 37 U/L (0-32) H 01/19/24 22:10 ALT 71 U/L (0-33) H 01/19/24 22:10 Alkaline Phosphatase 162 U/L (35-105) H 01/19/24 22:10 Total Protein 7.2 g/dL (6.6-8.7) 01/19/24 22:10 Albumin 3.6 g/dL (3.5-5.2) 01/19/24 22:10 Globulin 3.6 g/dL (1.3-4.6) 01/19/24 22:10 Lipase 14 U/L (13-60) 01/19/24 22:10 All radiology interpretation(s) finalized by discharge Discharge Plan Discharge Patient Disposition: Home Clinical Impression: Constipation Qualifiers: Constipation type: unspecified constipation type Qualified Code(s): K59.00 - Constipation, unspecified Condition: Stable Prescriptions: No Action (DME) Dexcom G6 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 Misc See Rx Instructions .Route Qty: 1 0RF Rx Instructions: As directed (DME) Dexcom G6 Sensor Device See Rx Instructions .Route Qty: 3 0RF Rx Instructions: As directed (DME) Dexcom G6 Transmitter Device See Rx Instructions .Route Qty: 1 0RF Rx Instructions: As directed aspirin 81 mg tablet,delayed release (DR/EC) 81 mg PO QAM fluticasone furoate-vilanterol [Breo Ellipta] 100-25 mcg/dose Blister With Device 1 inh INHALATION DAILY PRN (Reason: Shortness Of Breath) sevelamer carbonate 800 mg Tablet 800 mg PO TID Qty: 90 0RF atorvastatin 40 mg tablet 40 mg PO BEDTIME clonidine HCl 0.1 mg tablet See Rx Instructions .ROUTE .COMPLEX PRN (Reason: Blood Pressure) Rx Instructions: TAKE 1 TABLET IF SYSTOLIC BLOOD PRESSURE IS GREATER THAN 160, REPEAT ONCE IF SYSTOLIC BLOOD PRESSURE IS STILL OVER 160 AFTER 1 HOUR. lisinopril 40 mg tablet 40 mg PO BEDTIME Brilinta 90 mg tablet 90 mg PO BID Qty: 60 0RF gabapentin 100 mg Capsule 100 mg PO TID escitalopram oxalate [Lexapro] 10 mg Tablet 10 mg PO DAILY isosorbide mononitrate 30 mg Tablet Extended Release 24 Hr 30 mg PO DAILY 30 Days Qty: 30 0RF amlodipine 5 mg Tablet 5 mg PO DAILY 30 Days Qty: 30 0RF nitroglycerin 0.4 mg Tablet, Sublingual 0.4 mg sublingual Q5M PRN (Reason: Chest Pain) 30 Days Qty: 30 0RF pantoprazole [Protonix] 40 mg tablet,delayed release (DR/EC) 40 mg PO BID 30 Days Qty: 60 0RF insulin aspart U-100 [Novolog FlexPen U-100 Insulin] 100 unit/mL (3 mL) insulin pen See Rx Instructions .ROUTE .COMPLEX Qty: 15 0RF Rx Instructions: Inject, subcut, 3 times daily, after meals, based on sliding scale provided clopidogrel 75 mg tablet 75 mg PO DAILY carvedilol 12.5 mg tablet 12.5 mg PO BID Discharge Orders: Discharge ED (Routine); Ordered 01/19/24 Ordered By: Brodie Siu Referrals: Elizabeth Dougherty FNP [Primary Care Provider] - Discharge Diet: Usual diet Discharge Activity: Increase activity as tolerated Patient Instructions: Constipation (ED) Activity Restrictions/Additional Instructions: Healthy diet. Drink plenty water and fluids. Follow-up with primary care for further instructions regarding constipation. Return to ED for new concerns. Coding Level of Care Code ED Hand Embroiderer for Reji Chandler
--- NOTE | 2024-01-19 21:21 | XRR_ITS ---
PROCEDURE INFORMATION: Exam: XR Abdomen Exam date and time: 01/19/2024 9:38 PM Age: 38 years old Clinical indication: Patient HX: Generalized abdominal pain; No other symptoms TECHNIQUE: Imaging protocol: Radiologic exam of the abdomen. Views: Frontal supine view of the abdomen. 1 View. COMPARISON: CT abdomen pelvis w con* [id number] 01/01/2024 10:19 AM FINDINGS: Gastrointestinal tract: Moderate stool burden. No evidence of bowel obstruction. Intraperitoneal space: No large volume pneumoperitoneum. Right upper quadrant clips. Bones/joints: Unremarkable. XR/XR KUB [id number] IMPRESSION: Moderate stool burden. No evidence of bowel obstruction.
[2024-01-19 22:10] VITALS: BP 116/68; PULSE 71; RESP 18; O2SAT 98
[2024-01-19 22:15] VITALS: RESP 18; O2SAT 98
[2024-01-19] MEDS: morphine 4 mg/mL SDV 1 mL 2 MG IVP (22:15)
[2024-01-19 22:23] LABS: Basophils % 0.8 %; Eosinophils # 0.3 10^3/uL (0.0-0.8); Eosinophils % 6.1 %; Lymphocytes # 1.8 10^3/uL (0.8-4.8); Lymphocytes % 35.4 %; Mean Corpuscular HGB Conc 31.6 g/dL (30-55); Mean Corpuscular Hemoglobin 28.5 pg (27-33); Mean Corpuscular Volume 90.3 fl (85-98); Mean Platelet Volume 9.6 fL (7.4-10.4); Monocytes # 0.5 10^3/uL (0.2-0.9); Monocytes % 9.7 %; Neutrophils # 2.41 10^3/uL (1.8-7.7); Neutrophils % 47.8 %; Nucleated Red Blood Cells % 0 %; Platelet Count 127 10^3/cmm (157-399); Red Blood Count 4.21 10^6/uL (3.85-5.65); Red Cell Distribution Width 16.6 % (12.1-15.1); White Blood Count 5.05 10^3/uL (3.29-11.43)
[2024-01-19 22:48] LABS: Alanine Aminotransferase 71 U/L (0-33); Albumin Level 3.6 g/dL (3.5-5.2); Alkaline Phosphatase 162 U/L (35-105); Anion Gap 16.5 (5-19); Aspartate Amino Transferase 37 U/L (0-32); Blood Urea Nitrogen 25 mg/dL (6-20); Calcium 8.4 mg/dL (8.5-10.5); Carbon Dioxide 26 mmol/L (22-29); Chloride 103 mmol/L (98-107); Creatinine Clr Calc Pharmacy 14.9843; Globulin 3.6 g/dL (1.3-4.6); Glomerular Filtration Rate 12.2 mL/min (90-130); Glucose 239 mg/dL (65-115); Lipase 14 U/L (13-60); Osmolality Calculated 304 mOsm/kg (285-295); Potassium 4.5 mmol/L (3.5-5.1); Sodium 141 mmol/L (136-145); Total Bilirubin 0.4 mg/dL (0.15-1.2); Total Protein 7.2 g/dL (6.6-8.7)
[2024-01-19] MEDS: lactulose oral liq 20 gm/30 mL UDC PO (23:11)
== END 2024-01-19 23:15 | disposition home or self-care (01) ==
PROVIDERS: Emergency Provider Nurse Practitioner Family; PCP Nurse Practitioner Family
DX: K59.00 Constipation, unspecified (principal); Z79.02 Long term (current) use of antithrombotics/antiplatelets; Z79.82 Long term (current) use of aspirin; Z79.4 Long term (current) use of insulin; Z77.22 Contact with and (suspected) exposure to environmental tobacco smoke (acute) (chronic); E10.22 Type 1 diabetes mellitus with diabetic chronic kidney disease; I13.0 Hypertensive heart and chronic kidney disease with heart failure and stage 1 through stage 4 chronic kidney disease, or unspecified chronic kidney disease; N18.30 Chronic kidney disease, stage 3 unspecified; I50.9 Heart failure, unspecified; E78.5 Hyperlipidemia, unspecified; I25.10 Atherosclerotic heart disease of native coronary artery without angina pectoris
CPT/HCPCS: 74018; 80053; 83690; 85025; 96374; 99284; J2270

== ENCOUNTER 2024-01-22 07:49 | Oncology outpatient (recurring) (ONCR) | payer MEDICARE, MEDICAID, SELFPAY | END 2024-01-22 23:59 | disposition home or self-care (01) | LOC: ONCMED 07:50 | PROVIDERS: PCP Nurse Practitioner Family; Visit Provider Internal Medicine Medical Oncology | DX: R59.0 Localized enlarged lymph nodes (principal) | CPT/HCPCS: 99205 ==

== ENCOUNTER 2024-01-24 22:08 | Emergency (ER) | payer MEDICARE, MEDICAID, SELFPAY ==
[2024-01-24 22:22] VITALS: BP 120/76; PULSE 64; RESP 16; TEMP 36.7; O2SAT 99
--- NOTE | 2024-01-24 23:09 | XRR_ITS ---
PROCEDURE INFORMATION: Exam: XR Left Knee Exam date and time: 01/24/2024 11:15 PM Age: 38 years old Clinical indication: Left; Patient HX: Lt knee pain/swelling post hyperextension injury; HX lt knee orif TECHNIQUE: Imaging protocol: Radiologic exam of the left knee. Views: 3 views. COMPARISON: CR XR knee LT 3V* [id number] 07/14/2018 12:38 PM FINDINGS: Bones/joints: No acute fractures or subluxations. Moderate tricompartmental degenerative changes with joint space narrowing. No knee joint effusion. Soft tissues: Normal. Vasculature: Atherosclerotic calcifications. XR/XR knee LT 3V* [id number] IMPRESSION: No acute fractures or subluxations. Moderate tricompartmental degenerative changes .
--- NOTE | 2024-01-24 23:11 | W.ED.EXTPRO ---
HPI - Extremity Problem General: Chief complaint: Extremity Problem,Nontraumatic Stated complaint: Leg pain Time Seen by Provider: 01/24/24 22:57 Source: patient Mode of arrival: wheelchair Limitations: no limitations History of Present Illness: Patient is a 38-year-old female with extensive past medical history presenting to the emergency department complaining of atraumatic left lower extremity pain that began today. Patient's pain is reported to be to the anterior knee joint, reports history of fracture to that knee. Patient states she was seated when the pain began, notes it as severe at this time with proximal and distal radiation down the anterior left leg. No calf tenderness reported and no history of blood clots. No shortness of breath or other symptoms reported at this time. She does note that it is difficult to ambulate and does arrive to the emergency department via ambulance. Her vitals are normal on arrival, does appear in distress and is anxious on initial presentation. MD Complaint: joint pain Onset (ago): hour(s) Pain Consistency: constant Location: left and knee Severity scale (1-10): 10 Radiation: proximal and distal Relieving factors: nothing Exacerbating factors: range of motion, weight bearing and walking Associated symptoms: Reports no associated symptoms; Deny chest pain, fever(s) or rash Review of Systems General: Reports: 10 or more systems reviewed and unremarkable except in HPI and below Const: Denies: fever(s) or chills Card: Denies: chest pain Resp: Denies: dyspnea or productive cough GI: Denies: abdominal pain, nausea, vomiting or diarrhea : Denies: flank pain Musc: Reports: joint pain; Denies: neck pain, back pain, extremity pain, extremity swelling, joint swelling, joint redness, joint warmth, limited range of motion or muscle weakness Skin/Breast: Denies: rash Neuro: Denies: headache(s), numbness in extremities or weakness in extremities [facility] ED PFSH: Medical History ESRD (end stage renal disease) Transaminitis Intractable nausea and vomiting Hyperlipidemia HTN (hypertension) Diabetic gastroparesis Acute cystitis with hematuria ERICA (acute kidney injury) CHF (congestive heart failure), NYHA class III Pulmonary hypertension CAD (coronary artery disease) Neurogenic bladder Acute kidney injury superimposed on chronic kidney disease Metabolic acidosis COVID-19 Tobacco dependence Drug abuse Anemia Community acquired pneumonia Acute hyperglycemia Esophagitis Complicated UTI (urinary tract infection) Long-term insulin use History of pancreatitis Celiac disease Recurrent UTI Non-alcoholic fatty liver disease Arnold-Chiari malformation Diabetic gastroparesis -continue Reglan Diabetic neuropathy associated with type 1 diabetes mellitus Headache, common migraine, intractable, with status migrainosus Cystitis Pleural effusion 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 Uncontrolled type 1 diabetes mellitus Lymphadenitis Ureterolithiasis Pyelonephritis PID (pelvic inflammatory disease) Anxiety Sepsis Respiratory failure Pancreatitis DKA (diabetic ketoacidoses) Migraine headache Chronic headache Surgical History History of coronary artery stent placement x 6 History of toe surgery Amputation of right second toe. History of lung surgery -s/p LLL lobectomy secondary to cavitary pneumonia (2017) History of endoscopy History of cholecystectomy Family History Grandfather Diabetes Mother CAD (coronary artery disease) Diabetes Brother Acute lymphoblastic leukemia (ALL) in child Other Heart disease Hypertension Social History Smoking and tobacco/nicotine status: former use of tobacco/nicotine Quit status (tobacco/nicotine): has quit using Former quit date comment: She previously smoked <1/2 PPD, quit July 2023. Second hand smoke exposure: Yes Alcohol intake: never Substance/Drug Use: current Household members: children Housing: House Marital status: Single Current occupational status: unemployed Physical Exam Const: COMMON NORMALS: patient oriented x3, no limitations, alert and well nourished GENERAL APPEARANCE: in distress and anxious HENMT: COMMON NORMALS: normocephalic and atraumatic HEAD & SCALP: normocephalic and atraumatic Neck/C-Spine: COMMON NORMALS: full ROM, supple and no meningeal signs Resp: COMMON NORMALS: normal respiratory effort, No use of accessory muscles and clear to auscultation bilaterally AUSCULTATION: clear to auscultation bilaterally Cardio: COMMON NORMALS: regular rate and regular rhythm RATE: regular rate RHYTHM: regular rhythm Extremity: COMMON NORMALS: normal to inspection, full ROM, capillary refill normal, no joint enlargement, no clubbing, cyanosis or edema and no calf tenderness NARRATIVE EXTREMITY EXAM: Tenderness to palpation of the medial and lateral joint lines of the left knee. Tenderness to palpation of the left anterior thigh, as well as to the left anterior alberts. No obvious signs of trauma or bruising. No swelling. Neuro: COMMON NORMALS: patient oriented x3, moves all extremities, no focal motor deficits and no sensory deficits noted SENSORIUM/ORIENTATION: Yes alert MENINGEAL SIGNS: Yes no meningeal signs Skin: COMMON NORMALS: no rashes or lesions noted GENERAL SKIN EXAM: no rashes or lesions noted Course Vital Signs: Vital signs: Vital Signs Temperature 98.0 F 01/24/24 22:22 Pulse Rate 64 01/24/24 22:22 Respiratory Rate 16 01/24/24 23:26 Blood Pressure 120/76 01/24/24 22:22 Pulse Oximetry 99 01/24/24 22:22 Oxygen Delivery Me thod Room Air 01/24/24 22:22 MDM - Extremity (Nontraumatic) Medical Decision Making Patient presented with acute onset of atraumatic left knee pain. Extensive past medical history. Examination visually was unremarkable, though she did have some tenderness to palpation of the knee joint, as well as proximally and distally along the anterior left leg. No obvious deformity and distal neurovascular exam was normal. She was given Dilaudid, and upon recheck she is sleeping and when aroused states that she does feel better. X-ray not demonstrating acute findings. She is instructed to follow-up with primary care for further evaluation/imaging and continue all of her medications at home. She is a dialysis patient and will continue this. Return precautions were given. XR interpretation done by ED provider, pending radiology final review ED provider radiology interpretation(s): X-ray left knee. No obvious acute fracture or deformity. 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 Misc See Rx Instructions .Route Qty: 1 0RF Rx Instructions: As directed (DME) Dexcom G6 Sensor Device See Rx Instructions .Route Qty: 3 0RF Rx Instructions: As directed (DME) Dexcom G6 Transmitter Device See Rx Instructions .Route Qty: 1 0RF Rx Instructions: As directed aspirin 81 mg tablet,delayed release (DR/EC) 81 mg PO QAM fluticasone furoate-vilanterol [Breo Ellipta] 100-25 mcg/dose Blister With Device 1 inh INHALATION DAILY PRN (Reason: Shortness Of Breath) sevelamer carbonate 800 mg Tablet 800 mg PO TID Qty: 90 0RF atorvastatin 40 mg tablet 40 mg PO BEDTIME clonidine HCl 0.1 mg tablet See Rx Instructions .ROUTE .COMPLEX PRN (Reason: Blood Pressure) Rx Instructions: TAKE 1 TABLET IF SYSTOLIC BLOOD PRESSURE IS GREATER THAN 160, REPEAT ONCE IF SYSTOLIC BLOOD PRESSURE IS STILL OVER 160 AFTER 1 HOUR. lisinopril 40 mg tablet 40 mg PO BEDTIME gabapentin 100 mg Capsule 100 mg PO TID escitalopram oxalate [Lexapro] 10 mg Tablet 10 mg PO DAILY amlodipine 5 mg Tablet 5 mg PO DAILY 30 Days Qty: 30 0RF nitroglycerin 0.4 mg Tablet, Sublingual 0.4 mg sublingual Q5M PRN (Reason: Chest Pain) 30 Days Qty: 30 0RF insulin aspart U-100 [Novolog FlexPen U-100 Insulin] 100 unit/mL (3 mL) insulin pen See Rx Instructions .ROUTE .COMPLEX Qty: 15 0RF Rx Instructions: Inject, subcut, 3 times daily, after meals, based on sliding scale provided clopidogrel 75 mg tablet 75 mg PO DAILY carvedilol 12.5 mg tablet 12.5 mg PO BID Discharge Orders: Discharge ED (Routine); Ordered 01/25/24 Ordered By: Chato Bradshaw Referrals: Elizabeth Dougherty FNP [Primary Care Provider] - Discharge Diet: Usual diet Discharge Activity: Increase activity as tolerated Patient Instructions: Pain Management Activity Restrictions/Additional Instructions: Follow-up with primary care for further evaluation or recurrence of knee pain as instructed for further imaging. Return with any new or concerning symptoms may have. Continue medications at home and weight-bear as tolerated. Gentle range of motion exercises. Ice and elevation. Coding Level of Care Code ED Wet Machine Cutter for Reji Chandler
[2024-01-24 23:26] VITALS: RESP 16
[2024-01-25 00:56] VITALS: BP 165/94; PULSE 69; RESP 16; O2SAT 93
== END 2024-01-25 00:57 | disposition home or self-care (01) ==
PROVIDERS: Emergency Provider Physician Assistant; PCP Nurse Practitioner Family
DX: M25.562 Pain in left knee (principal); Z79.02 Long term (current) use of antithrombotics/antiplatelets; Z79.82 Long term (current) use of aspirin; Z79.4 Long term (current) use of insulin; Z87.891 Personal history of nicotine dependence; I13.2 Hypertensive heart and chronic kidney disease with heart failure and with stage 5 chronic kidney disease, or end stage renal disease; E10.22 Type 1 diabetes mellitus with diabetic chronic kidney disease; N18.6 End stage renal disease; I50.9 Heart failure, unspecified; E78.5 Hyperlipidemia, unspecified; I25.10 Atherosclerotic heart disease of native coronary artery without angina pectoris
CPT/HCPCS: 73562; 99283

== ENCOUNTER 2024-02-11 10:05 | Inpatient (IN) | payer MEDICARE, MEDICAID, SELFPAY ==
[2024-02-11] VITALS (91 sets, daily range): BP systolic 94–216; BP diastolic 59–120; PULSE 59–133; RESP 4–25; TEMP 36.4–37.1; O2SAT 91–100; BMI 24.2; BMI 24.7
--- NOTE | 2024-02-11 10:07 | XRR_ITS ---
PROCEDURE INFORMATION: Exam: XR Chest Exam date and time: 02/11/2024 10:14 AM Age: 38 years old Clinical indication: Pain; Cough and dyspnea; Angina pectoris; Prior surgery; Surgery date: 6+ months; Surgery type: Lll lobectomy dialysis port; Additional info: Dyspnea/cough TECHNIQUE: Imaging protocol: Radiologic exam of the chest. Views: 1 view. COMPARISON: CR (CHEST, ) 01/09/2024 8:09 PM FINDINGS: Tubes, catheters and devices: There is a tunneled right jugular hemodialysis catheter with the distal tip in the right atrium. Lungs: Prior partial left pneumonectomy. No pneumonia or pulmonary edema. Pleural spaces: Pleural thickening on the left. No pleural effusion or pneumothorax. Heart/Mediastinum: The cardiac silhouette is not enlarged. Prior coronary artery stenting. The mediastinal contours are normal. Bones/joints: Postsurgical changes in the left ribs. XR/XR chest 1V portable [id number] IMPRESSION: No acute finding.
--- NOTE | 2024-02-11 10:08 | ECG_ITS ---
[facility] Test Date: 2024-02-11 Pat Name: Donita Aguilar Department: Room: Gender: Female Sas Developer Analyst: : 1985 Requested By: Shravan Nick Order Number: [id number] Faviola MD: Gilberto Eugene M.D. Measurements Intervals [place] Rate: 67 P: 31 KS: 167 QRS: 17 QRSD: 105 T: 3 QT: 435 QTc: 462 Interpretive Statements SINUS RHYTHM POSSIBLE ANTERIOR MYOCARDIAL INFARCTION , OF INDETERMINATE AGE [30 ms Q WAVE IN V3/V4, OR R < 0.2 mV IN V4] INTERPRETATION BASED ON A DEFAULT AGE OF 40 YEARS Compared to ECG 01/09/2024 20:02:37 Myocardial infarct finding now present Intraventricular conduction delay no longer present T-wave abnormality no longer present Electronically Signed On 02-11-2024 23:29:38 CDT by Gilberto Eugene M.D. [email or web address]
--- NOTE | 2024-02-11 10:33 | ED_ITS ---
HPI - Chest Pain 2 General: Chief Complaint: Chest Pain Stated Complaint: chest pain Time Seen by Provider: 02/11/24 10:06 History of Present Illness: 38-year-old female presents emergency ro om complaining of chest comfort. Patient has a history of diabetes mellitus he has end-stage renal disease started on dialysis earlier this year. She was presented here dialysis this morning complaining of severe chest pain. She has had multiple stents in the past. She is telling some chest discomfort at this time. Reports the pain as substernal left-sided is reproducible with palpation. No nausea or vomiting no radiation to neck arm or back. No associated shortness of breath Associated symptoms: Deny abdominal pain, dyspnea or fever(s) Related Data Home Medications Medication Instructions Recorded Confirmed fluticasone furoate 100 1 inh inhalation DAILY PRN 09/14/23 02/11/24 mcg-vilanterol 25 mcg/dose Shortness Of Breath inhalation powder (Breo Ellipta) atorvastatin 40 mg tablet 40 mg PO BEDTIME 11/27/23 02/11/24 clonidine HCl 0.1 mg tablet See Rx Instructions .Route 11/27/23 02/11/24 .COMPLEX PRN Blood Pressure lisinopril 40 mg tablet 40 mg PO BEDTIME 11/27/23 02/11/24 aspirin 81 mg tablet,delayed 81 mg PO QAM 12/20/23 02/11/24 release escitalopram oxalate 10 mg tablet 10 mg PO DAILY 12/27/23 02/11/24 (Lexapro) gabapentin 100 mg capsule 100 mg PO TID 12/27/23 02/11/24 carvedilol 12.5 mg tablet 12.5 mg PO BID 01/06/24 02/11/24 clopidogrel 75 mg tablet 75 mg PO DAILY 01/06/24 02/11/24 bumetanide 1 mg tablet 1 mg PO DAILY 02/11/24 02/11/24 ticagrelor 90 mg tablet (Brilinta) 90 mg PO BID 02/11/24 02/11/24 Previous Rx's Medication Instructions Recorded blood-glucose meter,continuous #1 ea 06/12/22 (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) blood-glucose sensor (Dexcom G6 #3 ea 06/12/22 Sensor device) blood-glucose transmitter (Dexcom #1 ea 06/12/22 G6 Transmitter device) sevelamer carbonate 800 mg tablet 800 mg PO TID #90 tabs 09/16/23 insulin aspart U-100 100 unit/mL See Rx Instructions .Route 01/01/24 (3 mL) subcutaneous pen (Novolog .COMPLEX #15 mL FlexPen U-100 Insulin aspart) Allergies Allergy/AdvReac Type Severity Reaction Status Date / Time acetaminophen AdvReac Mild ADR-Gastrointestinal Verified 01/24/24 22:25 Upset Review of Systems 2 Const: Denies: fever(s) or chills Card: Reports: chest pain Resp: Denies: dyspnea GI: Denies: abdominal pain : Denies: dysuria, urinary frequency or urinary urgency Musc: Denies: neck pain or back pain Skin/Breast: Denies: rash PFSH ED 2 PFSH: Medical History ESRD (end stage renal disease) Transaminitis Intractable nausea and vomiting Hyperlipidemia HTN (hypertension) Diabetic gastroparesis Acute cystitis with hematuria ERICA (acute kidney injury) CHF (congestive heart failure), NYHA class III Pulmonary hypertension CAD (coronary artery disease) Neurogenic bladder Acute kidney injury superimposed on chronic kidney disease Metabolic acidosis COVID-19 Tobacco dependence Drug abuse Anemia Community acquired pneumonia Acute hyperglycemia Esophagitis Complicated UTI (urinary tract infection) Long-term insulin use History of pancreatitis Celiac disease Recurrent UTI Non-alcoholic fatty liver disease Arnold-Chiari malformation Diabetic gastroparesis -continue Reglan Diabetic neuropathy associated with type 1 diabetes mellitus Headache, common migraine, intractable, with status migrainosus Cystitis Pleural effusion 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 Uncontrolled type 1 diabetes mellitus Lymphadenitis Ureterolithiasis Pyelonephritis PID (pelvic inflammatory disease) Anxiety Sepsis Respiratory failure Pancreatitis DKA (diabetic ketoacidoses) Migraine headache Chronic headache Surgical History History of coronary artery stent placement x 6 History of toe surgery Amputation of right second toe. History of lung surgery -s/p LLL lobectomy secondary to cavitary pneumonia (2017) History of endoscopy History of cholecystectomy Family History Grandfather Diabetes Mother CAD (coronary artery disease) Diabetes Brother Acute lymphoblastic leukemia (ALL) in child Other Heart disease Hypertension Social History (Reviewed 02/11/24 @ 10:35 by JOSH Hanson Smoking and tobacco/nicotine status: former use of tobacco/nicotine Quit status (tobacco/nicotine): has quit using Former quit date comment: She previously smoked <1/2 PPD, quit July 2023. Second hand smoke exposure: Yes Alcohol intake: never Substance/Drug Use: current Household members: children Housing: House Marital status: Single Current occupational status: unemployed Physical Exam 2 Const: GENERAL APPEARANCE: cooperative ORIENTATION/CONSCIOUSNESS: Yes awake, Yes oriented to person, Yes oriented to place and Yes oriented to time HENMT: COMMON NORMALS: normocephalic, atraumatic and hearing grossly normal bilaterally HEAD & SCALP: normocephalic and atraumatic Resp: COMMON NORMALS: normal respiratory effort, No retractions, No use of accessory muscles and clear to auscultation bilaterally AUSCULTATION: clear to auscultation bilaterally Cardio: COMMON NORMALS: regular rate, regular rhythm and No murmurs present (Cardio) RATE: regular rate RHYTHM: regular rhythm GI: COMMON NORMALS: Soft to palpation and No hepatosplenomegaly present A USCULTATION: Yes normoactive bowel sounds PALPATION: Yes Soft to palpation, No Tenderness to palpation present (GI), No Guarding due to palpation present (GI) and Yes No hepatosplenomegaly present Extremity: COMMON NORMALS: normal to inspection, capillary refill normal, no clubbing, cyanosis or edema, no calf tenderness and no pedal edema Neuro: SENSORIUM/ORIENTATION: Yes oriented to person, Yes oriented to place and Yes oriented to time Skin: COMMON NORMALS: no rashes or lesions noted GENERAL SKIN EXAM: no rashes or lesions noted Course 2 Vital Signs: Vital signs: Vital Signs Temperature 97.8 F 02/11/24 16:45 Pulse Rate 66 02/11/24 17:00 Respiratory Rate 14 02/11/24 17:00 Blood Pressure 124/76 02/11/24 17:00 Pulse Oximetry 97 02/11/24 17:00 Oxygen Delivery Me thod Room Air 02/11/24 17:00 MDM - Chest Pain Medical Decision Making Accelerated hypertension with multiple risk factors including known heart disease she did have a recent cath and subsequent stress test which was negative these were reviewed in the chart. EKGs reviewed as found in the chart did not show any acute changes. She did require nicardipine to manage her blood pressure. She is also due for dialysis today. Will admit consult nephrology discussed with hospitalist orders written they will consult cardiology if they feel it is appropriate. Lab Data 02/11/24 12:01 02/11/24 12:01 Radiology Impressions Chest X-Ray 02/11/24 10:07 IMPRESSION: No acute finding. Laboratory Results WBC 6.52 10^3/uL (3.29-11.43) 02/11/24 12:01 RBC 4.32 10^6/uL (3.85-5.65) 02/11/24 12:01 Hgb 12.30 g/dL (11.27-16.99) 02/11/24 12:01 Hct 37.0 % (36-47) 02/11/24 12:01 MCV 85.6 fl (85-98) 02/11/24 12:01 MCH 28.5 pg (27-33) 02/11/24 12:01 MCHC 33.2 g/dL (30-55) 02/11/24 12:01 RDW 14.1 % (12.1-15.1) 02/11/24 12:01 Plt Count 156 10^3/cmm (157-399) L 02/11/24 12:01 MPV 9.7 fL (7.4-10.4) 02/11/24 12:01 Neut % (Auto) 71.7 % 02/11/24 12:01 Lymph % (Auto) 17.6 % 02/11/24 12:01 [place] % (Auto) 6.3 % 02/11/24 12:01 Eos % (Auto) 3.2 % 02/11/24 12:01 Baso % (Auto) 0.9 % 02/11/24 12:01 Neut # (Auto) 4.67 10^3/uL (1.8-7.7) 02/11/24 12:01 Lymph # (Auto) 1.2 10^3/uL (0.8-4.8) 02/11/24 12:01 [place] # (Auto) 0.4 10^3/uL (0.2-0.9) 02/11/24 12:01 Eos # (Auto) 0.2 10^3/uL (0.0-0.8) 02/11/24 12:01 Baso # (Auto) 0.1 10^3/uL (0.0-0.1) 02/11/24 12:01 Nucleated RBC % (auto) 0 % 02/11/24 12:01 Nucleated RBCs # 0.0 /100WBC 02/11/24 12:01 Sodium 140 mmol/L (136-145) 02/11/24 12:01 Potassium 5.0 mmol/L (3.5-5.1) 02/11/24 12:01 Chloride 101 mmol/L (98-107) 02/11/24 12:01 Carbon Dioxide 22 mmol/L (22-29) 02/11/24 12:01 Anion Gap 22.0 (5-19) H 02/11/24 12:01 BUN 48 mg/dL (6-20) H 02/11/24 12:01 Creatinine 6.1 mg/dL (0.5-0.9) H* 02/11/24 12:01 GFR Calculation 7.7 mL/min (90-130) L 02/11/24 12:01 Glucose 244 mg/dL (65-115) H 02/11/24 12:01 Calculated Osmolality 311 mOsm/kg (285-295) H 02/11/24 12:01 Calcium 8.8 mg/dL (8.5-10.5) 02/11/24 12:01 Total Bilirubin 0.3 mg/dL (0.15-1.2) 02/11/24 12:01 AST 62 U/L (0-32) H 02/11/24 12:01 ALT 79 U/L (0-33) H 02/11/24 12:01 Alkaline Phosphatase 173 U/L (35-105) H 02/11/24 12:01 Troponin T Baseline 297 ng/L (0-10) H* 02/11/24 12:01 Troponin T 120 Minute 277.5 ng/L (0-10) H 02/11/24 14:07 Delta Troponin T -19.5 ABS# (0-10) L 02/11/24 14:07 Total Protein 7.5 g/dL (6.6-8.7) 02/11/24 12:01 Albumin 3.7 g/dL (3.5-5.2) 02/11/24 12:01 Globulin 3.8 g/dL (1.3-4.6) 02/11/24 12:01 Serum Ketones Negative (Negative) 02/11/24 12:01 All radiology interpretation(s) finalized by discharge Discharge Plan Discharge Patient Disposition: Admitted As Inpatient Admit Provider: Debbie Morse Clinical Impression: Chest pain, End stage renal disease on dialysis, Accelerated hypertension, History of CAD (coronary artery disease) Condition: Stable Coding Level of Care Code ED Sales Representative [employer] for Reji Chandler
--- NOTE | 2024-02-11 12:08 | ECG_ITS ---
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 Measurements Intervals [place] Rate: 69 P: 59 [place]: 184 QRS: 14 QRSD: 107 T: 3 QT: 423 QTc: 455 Interpretive Statements SINUS RHYTHM POSSIBLE ANTERIOR MYOCARDIAL INFARCTION , OF INDETERMINATE AGE [30 ms Q WAVE IN V3/V4, OR R < 0.2 mV IN V4] Compared to ECG 01/09/2024 20:02:37 Myocardial infarct finding now present Intraventricular conduction delay no longer present T-wave abnormality no longer present Electronically Signed On 02-11-2024 23:40:06 CDT by Gilberto Eugene M.D. [id number]
[2024-02-11 12:14] LABS: Basophils # 0.1 10^3/uL (0.0-0.1); Basophils % 0.9 %; Eosinophils # 0.2 10^3/uL (0.0-0.8); Eosinophils % 3.2 %; Lymphocytes # 1.2 10^3/uL (0.8-4.8); Lymphocytes % 17.6 %; Mean Corpuscular HGB Conc 33.2 g/dL (30-55); Mean Corpuscular Hemoglobin 28.5 pg (27-33); Mean Corpuscular Volume 85.6 fl (85-98); Mean Platelet Volume 9.7 fL (7.4-10.4); Monocytes # 0.4 10^3/uL (0.2-0.9); Monocytes % 6.3 %; Neutrophils # 4.67 10^3/uL (1.8-7.7); Neutrophils % 71.7 %; Nucleated Red Blood Cells % 0 %; Platelet Count 156 10^3/cmm (157-399); Red Blood Count 4.32 10^6/uL (3.85-5.65); Red Cell Distribution Width 14.1 % (12.1-15.1); White Blood Count 6.52 10^3/uL (3.29-11.43)
[2024-02-11 12:29] LABS: Ketone (Acetest) Serum Negative (Negative)
--- NOTE | 2024-02-11 12:32 | PC.NURSE ---
AFTER MULTIPLE ATTEMPTS FOR AN IV FOR PT, AN 18G IN L AC WAS ESTABLISHED VIA US. UNABLE TO DRAW BLOOD BACK FROM IV BUT PT STATES SHE CAN TASTE THE SALINE FLUSH. IV WAS FLUSHED WITH MULTIPLE SALINE FLUSHES AND NO OBVIOUS INFILTRATION, SWELLING, OR PAIN NOTED. PT EDUCATED ON NOTIFYING STAFF OF ANY REDNESS, PAIN, OR SWELLING AT IV SITE. VERBALIZED UNDERSTANDING.
[2024-02-11 12:34] LABS: Alanine Aminotransferase 79 U/L (0-33); Albumin Level 3.7 g/dL (3.5-5.2); Alkaline Phosphatase 173 U/L (35-105); Aspartate Amino Transferase 62 U/L (0-32); Blood Urea Nitrogen 48 mg/dL (6-20); Calcium 8.8 mg/dL (8.5-10.5); Carbon Dioxide 22 mmol/L (22-29); Chloride 101 mmol/L (98-107); Creatinine Clr Calc Pharmacy 9.9267; Globulin 3.8 g/dL (1.3-4.6); Glomerular Filtration Rate 7.7 mL/min (90-130); Glucose 244 mg/dL (65-115); Osmolality Calculated 311 mOsm/kg (285-295); Sodium 140 mmol/L (136-145); Total Bilirubin 0.3 mg/dL (0.15-1.2); Total Protein 7.5 g/dL (6.6-8.7)
[2024-02-11 12:36] LABS: Troponin(5th) Baseline 297 ng/L (0-10)
[2024-02-11] MEDS: nicardipine 20 MG/200 ML PREMIX 50 MG IV (12:44)
[2024-02-11 14:35] LABS: Troponin 5 2HR 277.5 ng/L (0-10)
[2024-02-11 14:36] LABS: Troponin 5 2HR Delta -19.5 ABS# (0-10)
--- NOTE | 2024-02-11 17:02 | ECG_ITS ---
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 Measurements Intervals [place] Rate: 67 P: 16 [place]: 169 QRS: 0 QRSD: 100 T: 54 QT: 435 QTc: 461 Interpretive Statements SINUS RHYTHM POSSIBLE ANTERIOR MYOCARDIAL INFARCTION , OF INDETERMINATE AGE [30 ms Q WAVE IN V3/V4, OR R < 0.2 mV IN V4] Compared to ECG 02/11/2024 12:20:14 No significant changes Electronically Signed On 02-11-2024 23:42:38 CDT by Gilebrto Eugene M.D. [id number]
--- NOTE | 2024-02-11 17:24 | P.HP_ITS ---
Providers/Chief Complaint 2 Admitting Physician: Debbie Morse MD Primary Care Provider: SUZANNE Dias Chief Complaint: chest pain History of Present Illness Donita Aguilar is a 38 year old female who presented to the emergency room from dialysis clinic with a chief complaint of chest pain. She has a complex cardiac history. Last cardiac catheterization was in November of this year revealing severe mid LAD stenosis. She underwent successful revascularization with 1 stent at that time. In December she had stress testing performed because of ongoing chest pain. She had a stress test in December because of ongoing chest pain. That showed small to medium sized areas of prior infarction with minimal nina-infarct ischemia in the left circumflex artery territory. Recommendations were management with Imdur, continued aspirin, Brilinta, and follow-up with cardiology. She has not seen cardiology since that time indicating that an appointment was canceled and she has not had a chance to reschedule it yet. She has had a change in insurance coverage and says that Brilinta was not covered by her insurance and she resumed Plavix. She is not on Imdur for the same reasons. Her chest pain woke her up from sleep and was severe at a 9-10 out of 10 with associated symptoms. She had no relief with nitroglycerin at home though did note some improvement with her blood pressure medications. She attempted to go to dialysis today but pain was continuing and she was referred to the emergency room. She describes pain going up into her left shoulder and upper back and down her left arm. She had some nausea and associated shortness of breath. On arrival to the emergency room pain was had a 9 or 10. At best, her chest pain will get no lower than a 2/10. This pain is similar to what she had prior to stent placement. EKG without acute ST segment elevation. Baseline troponin was 297 similar to her prior values. 2-hour troponin was trending downward at 277. At the current time chest pain is approaching an 8. She was significantly hypertensive upon arrival with blood pressures 210s over 120s. She was started on a nicardipine drip which has been trended downward. She did not miss any medications today. Not having vomiting today. Abdominal pain better. There were concerns about gastroparesis last hospital stay and she was referred to oncology for retroperitoneal lymphadenopathy. She is being admitted to hospital service for further evaluation and treatment with continued pain and degree of hypertension combined with comorbid conditions. She did not receive dialysis today. She is being admitted to hospitalist service. Review of Systems 2 General: Reports: Other (ROS as per HPI or as otherwise noted here) Const: Denies: fever(s) Card: Reports: lightheadedness; Denies: palpitations Resp: Reports: dyspnea (Mild) GI: Denies: vomiting Musc: Reports: extremity pain Medications/Allergies Home Medications Medication Instructions Recorded Confirmed Last Taken Type blood-glucose meter,continuous #1 ea 06/12/22 02/11/24 Unknown Rx (Dexcom G6 Aerospace Stress Engineer) blood-glucose sensor (Dexcom G6 #3 ea 06/12/22 02/11/24 Unknown Rx Sensor device) blood-glucose transmitter (Dexcom #1 ea 06/12/22 02/11/24 Unknown Rx G6 Transmitter device) fluticasone furoate 100 1 inh inhalation DAILY PRN 09/14/23 02/11/24 09/20/23 History mcg-vilanterol 25 mcg/dose Shortness Of Breath inhalation powder (Breo Ellipta) sevelamer carbonate 800 mg tablet 800 mg PO TID #90 tabs 09/16/23 02/11/24 02/11/24 Rx atorvastatin 40 mg tablet 40 mg PO BEDTIME 11/27/23 02/11/24 02/10/24 History clonidine HCl 0.1 mg tablet See Rx Instructions .Route 11/27/23 02/11/24 Unknown History .COMPLEX PRN Blood Pressure lisinopril 40 mg tablet 40 mg PO BEDTIME 11/27/23 02/11/24 02/10/24 History aspirin 81 mg tablet,delayed 81 mg PO QAM 12/20/23 02/11/24 01/06/24 History release escitalopram oxalate 10 mg tablet 10 mg PO DAILY 12/27/23 02/11/24 02/11/24 History (Lexapro) gabapentin 100 mg capsule 100 mg PO TID 12/27/23 02/11/24 02/11/24 History insulin aspart U-100 100 unit/mL See Rx Instructions .Route 01/01/24 02/11/24 02/10/24 Rx (3 mL) subcutaneous pen (Novolog .COMPLEX #15 mL FlexPen U-100 Insulin aspart) carvedilol 12.5 mg tablet 12.5 mg PO BID 01/06/24 02/11/24 02/11/24 History clopidogrel 75 mg tablet 75 mg PO DAILY 01/06/24 02/11/24 02/11/24 History bumetanide 1 mg tablet 1 mg PO DAILY 02/11/24 02/11/24 Unknown History ticagrelor 90 mg tablet (Brilinta) 90 mg PO BID 02/11/24 02/11/24 History Allergies Allergy/AdvReac Type Severity Reaction Status Date / Time acetaminophen AdvReac Mild ADR-Gastrointestinal Verified 01/24/24 22:25 Upset PFSH Acute 2 PFSH: Medical History (Updated 02/11/24 @ 20:14 by Debbie Morse MD) ESRD (end stage renal disease) Transaminitis Intractable nausea and vomiting Hyperlipidemia HTN (hypertension) CHF (congestive heart failure), NYHA class III Pulmonary hypertension CAD (coronary artery disease) Neurogenic bladder COVID-19 Tobacco dependence Drug abuse Anemia Community acquired pneumonia Esophagitis Long-term insulin use History of pancreatitis Celiac disease Recurrent UTI Non-alcoholic fatty liver disease Arnold-Chiari malformation Diabetic gastroparesis -continue Reglan Diabetic neuropathy associated with type 1 diabetes mellitus Headache, common migraine, intractable, with status migrainosus Pleural effusion 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 History of lung surgery -s/p LLL lobectomy secondary to cavitary pneumonia (2016) History of endoscopy History of cholecystectomy Family History Grandfather Diabetes Mother CAD (coronary artery disease) Diabetes Brother Acute lymphoblastic leukemia (ALL) in child Other Heart disease Hypertension Social History Smoking and tobacco/nicotine status: former use of tobacco/nicotine Quit status (tobacco/nicotine): has quit using Former quit date comment: She previously smoked <1/2 PPD, quit July 2023. Second hand smoke exposure: Yes Alcohol intake: never Substance/Drug Use: current Household members: children Housing: House Marital status: Single Current occupational status: unemployed Vitals/I&O/Wt Last Vital Signs Temp 97.8 F 02/11/24 16:45 Pulse 66 02/11/24 17:00 Resp 14 02/11/24 17:00 BP 124/76 02/11/24 17:00 Pulse Ox 97 02/11/24 17:00 O2 Del Method Room Air 02/11/24 17:00 02/11/24 02/11/24 02/11/24 06:59 14:59 22:59 Intake Total 47.5 / 47.5 Balance 47.5 / 47.5 Weight last 48 hrs Weight 57.47 kg Weight 56.245 kg Physical Exam 2 Narrative: Patient is awake and alert, able to provide history. Extraocular movements are intact. Neck is supple. Right-sided dialysis catheter noted. Lungs are clear to auscultation. Cardiovascular exam reveals a regular rate and rhythm. Abdomen is soft, nontender to palpation with positive bowel sounds. No edema. Some discomfort with palpation in left thorax and shoulder. Moves all extremities. Data 02/11/24 12:01 02/11/24 12:01 Other Labs: Radiology Impressions Chest X-Ray 02/11/24 10:07 IMPRESSION: No acute finding. Laboratory Results WBC 6.52 10^3/uL (3.29-11.43) 02/11/24 12:01 RBC 4.32 10^6/uL (3.85-5.65) 02/11/24 12:01 Hgb 12.30 g/dL (11.27-16.99) 02/11/24 12:01 Hct 37.0 % (36-47) 02/11/24 12:01 MCV 85.6 fl (85-98) 02/11/24 12:01 MCH 28.5 pg (27-33) 02/11/24 12:01 MCHC 33.2 g/dL (30-55) 02/11/24 12:01 RDW 14.1 % (12.1-15.1) 02/11/24 12:01 Plt Count 156 10^3/cmm (157-399) L 02/11/24 12:01 MPV 9.7 fL (7.4-10.4) 02/11/24 12:01 Neut % (Auto) 71.7 % 02/11/24 12:01 Lymph % (Auto) 17.6 % 02/11/24 12:01 Daniels % (Auto) 6.3 % 02/11/24 12:01 Eos % (Auto) 3.2 % 02/11/24 12:01 Baso % (Auto) 0.9 % 02/11/24 12:01 Neut # (Auto) 4.67 10^3/uL (1.8-7.7) 02/11/24 12:01 Lymph # (Auto) 1.2 10^3/uL (0.8-4.8) 02/11/24 12:01 Daniels # (Auto) 0.4 10^3/uL (0.2-0.9) 02/11/24 12:01 Eos # (Auto) 0.2 10^3/uL (0.0-0.8) 02/11/24 12:01 Baso # (Auto) 0.1 10^3/uL (0.0-0.1) 02/11/24 12:01 Nucleated RBC % (auto) 0 % 02/11/24 12:01 Nucleated RBCs # 0.0 /100WBC 02/11/24 12:01 Sodium 140 mmol/L (136-145) 02/11/24 12:01 Potassium 5.0 mmol/L (3.5-5.1) 02/11/24 12:01 Chloride 101 mmol/L (98-107) 02/11/24 12:01 Carbon Dioxide 22 mmol/L (22-29) 02/11/24 12:01 Anion Gap 22.0 (5-19) H 02/11/24 12:01 BUN 48 mg/dL (6-20) H 02/11/24 12:01 Creatinine 6.1 mg/dL (0.5-0.9) H* 02/11/24 12:01 GFR Calculation 7.7 mL/min (90-130) L 02/11/24 12:01 Glucose 244 mg/dL (65-115) H 02/11/24 12:01 Calculated Osmolality 311 mOsm/kg (285-295) H 02/11/24 12:01 Calcium 8.8 mg/dL (8.5-10.5) 02/11/24 12:01 Total Bilirubin 0.3 mg/dL (0.15-1.2) 02/11/24 12:01 AST 62 U/L (0-32) H 02/11/24 12:01 ALT 79 U/L (0-33) H 02/11/24 12:01 Alkaline Phosphatase 173 U/L (35-105) H 02/11/24 12:01 Troponin T Baseline 297 ng/L (0-10) H* 02/11/24 12:01 Troponin T 120 Minute 277.5 ng/L (0-10) H 02/11/24 14:07 Delta Troponin T -19.5 ABS# (0-10) L 02/11/24 14:07 Total Protein 7.5 g/dL (6.6-8.7) 02/11/24 12:01 Albumin 3.7 g/dL (3.5-5.2) 02/11/24 12:01 Globulin 3.8 g/dL (1.3-4.6) 02/11/24 12:01 Serum Ketones Negative (Negative) 02/11/24 12:01 A&P Assessment and plan (1) Chest pain: Describes some typical as well as atypical features. She has known coronary artery disease with previous stents most recently with an LAD stent in November of this year. She had cardiac stress testing last month for another episode of chest pain. She has had angina for some time. She always has chest pain to some degree but the pain today was worse than usual. Baseline troponin around 290 with a negative 2-hour delta to 277. She had been previously placed on Brilinta but has had a change of insurance in the last month or 2 and is back on clopidogrel presently as her new insurance would not cover Brilinta from history obtained. Some of her pain seems musculoskeletal in nature as partially reproducible on exam. The best her chest pain ever is is probably a 2 or so out of 10 by her report. (2) Atherosclerotic heart disease of [place] coronary artery with other forms of angina pectoris: Same as above. Chronically on aspirin, antiplatelet therapy, statin, beta- blockade and RADHA inhibitor. (3) Accelerated hypertension: Significant elevation of blood pressures today on top of baseline hypertension despite taking her usual medications this morning. In talking with her her blood pressures have actually been within normal range lately which is more unusual for her. She responded to Cardene drip initiated in the emergency room. (4) Hyperlipidemia: Chronically on statin therapy Qualifiers: Hyperlipidemia type: mixed hyperlipidemia Qualified Code(s): E78.2 - Mixed hyperlipidemia (5) Diabetes mellitus: Chronically on insulin therapy. In addition to circulation problems as chronic kidney disease stage V and neuropathy. She is on gabapentin. Has a history of DKA but currently without serum ketosis. Qualifiers: Diabetes mellitus type: type 1 Diabetes mellitus complication status: w ith circulatory complication Diabetes mellitus complication detail: with other circulatory complications Qualified Code(s): E10.59 - Type 1 diabetes mellitus with other circulatory complications (6) End stage renal disease on dialysis: Dialysis on Tuesdays, and Saturdays. Missed today due to chest pain as dialysis clinic sent her here. Current labs are consistent with intended dialysis day. Plan Observation admission for now I have continued Brilinta at this time though unclear if it will be covered for her in the outpatient setting presently Will ask cardiology to see regarding Brilinta versus Plavix amid ongoing complaints of chest pain Will have to clarify Brilinta versus Plavix prior to discharge Continue serial cardiac enzymes Nitroglycerin for chest pain, watching BP response Nephrology consultation for dialysis Will wean nicardipine with anticipation that we will be able to get her off of this soon and transition to home medications Insulin for diabetes control Continue home aspirin, statin, beta-blockade Continue home lisinopril Presently will hold bumetanide given report of more normalized, even low blood pressures for her lately despite significant hypertension upon presentation today Continue home escitalopram Continue home gabapentin Continue home sevelamer Nonpharmacologic options for musculoskeletal pain VTE prophylaxis: heparin GI Prophylaxis: PPI Antibiotics: none Pending studies: cardiac enzymes, morning labs Telemetry: ordered due to cardiac issues Sanders: not currently indicated Line(s): peripheral IVs plus HD catheter Disposition plan: Home with outpatient follow up anticipated Code Status: Full Code Supportive care otherwise Findings, concerns and plans were discussed with patient and she was given an opportunity to ask questions Attestations 2 Medical Necessity Statement*: Currently anticipate a stay less than two midnights []. Diagnoses Chest pain R07.9 Atherosclerotic heart disease of [place] coronary artery with other forms of angina pectoris I25.118 Accelerated hypertension I10 Mixed hyperlipidemia E78.2 Hyperlipidemia type: mixed hyperlipidemia Type 1 diabetes mellitus with other circulatory complication E10.59 Diabetes mellitus type: type 1 Diabetes mellitus complication status: with circulatory complication Diabetes mellitus complication detail: with other circulatory complications End stage renal disease on dialysis N18.6; Z99.2
[2024-02-11] MEDS: heparin, porcine 1,000 unit/mL INJ 10 mL 1000 UNIT IV (18:35)
[2024-02-11] MEDS: ticagrelor 90 mg Tablet PO (18:58)
[2024-02-11] MEDS: carvedilol 12.5 mg Tablet PO (18:58)
[2024-02-11] MEDS: insulin lispro 100 unit/1 mL SUBCUT ×2 (18:59→22:08)
[2024-02-11] MEDS: nitroglycerin 0.4 mg sublingual Tablet SUBLINGUAL (19:18)
--- NOTE | 2024-02-11 19:20 | PC.NURSE ---
Addendum entered by Jackie Ludwig RN 02/11/24 19:40: Notified Dr. oMrse of persistent CP and inability to give second nitro d/t drop in BP @1930. Dr. Morse on unit and at bedside @1933. Original Note: CP: Notified Dr. Morse of 03/03 CP @1914, new order to give PRN Nitro. Notified of critical trop @1914. See MAR for administration time.
[2024-02-11] MEDS: heparin 5,000 unit/mL INJ 1 mL 5000 UNIT SUBCUT (20:06)
[2024-02-11] MEDS: atorvastatin 40 mg Tablet PO (20:06)
[2024-02-11] MEDS: gabapentin 100 mg Capsule PO (20:07)
[2024-02-11] MEDS: lisinopril 20 mg Tablet 40 MG PO (20:07)
--- NOTE | 2024-02-11 21:15 | P.CONIM_ITS ---
Providers/Reason For Consult 2 Consulting Physician/Specialty*: [facility]/Nephrology Reason for Consult*: ESRD Attending Physician: Debbie Morse MD Primary Care Provider: SUZANNE Dias History of Present Illness History of Present Illness Donita Aguilar is a 38 year old female Patient is a 38-year-old female with past medical history of reactive disease, end-stage renal disease on dialysis patient previously had LAD stents nicardipine drip patient also complained of nausea and decreased p.o. intake. In the emergency department vital signs are stable, lab data significant for creatinine 6.1, potassium was 5.0. Chest x-ray was negative for any acute findings. Medications/Allergies Home Medications Medication Instructions Recorded Confirmed Last Taken Type blood-glucose meter,continuous #1 ea 06/12/22 02/11/24 Unknown Rx (Dexcom G6 Classroom Coordinator) blood-glucose sensor (Dexcom G6 #3 ea 06/12/22 02/11/24 Unknown Rx Sensor device) blood-glucose transmitter (Dexcom #1 ea 06/12/22 02/11/24 Unknown Rx G6 Transmitter device) fluticasone furoate 100 1 inh inhalation DAILY PRN 09/14/23 02/11/24 09/20/23 History mcg-vilanterol 25 mcg/dose Shortness Of Breath inhalation powder (Breo Ellipta) sevelamer carbonate 800 mg tablet 800 mg PO TID #90 tabs 09/16/23 02/11/24 02/11/24 Rx atorvastatin 40 mg tablet 40 mg PO BEDTIME 11/27/23 02/11/24 02/10/24 History clonidine HCl 0.1 mg tablet See Rx Instructions .Route 11/27/23 02/11/24 Unknown History .COMPLEX PRN Blood Pressure lisinopril 40 mg tablet 40 mg PO BEDTIME 11/27/23 02/11/24 02/10/24 History aspirin 81 mg tablet,delayed 81 mg PO QAM 12/20/23 02/11/24 01/06/24 History release escitalopram oxalate 10 mg tablet 10 mg PO DAILY 12/27/23 02/11/24 02/11/24 History (Lexapro) gabapentin 100 mg capsule 100 mg PO TID 12/27/23 02/11/24 02/11/24 History insulin aspart U-100 100 unit/mL See Rx Instructions .Route 0702/11/24 02/10/24 Rx (3 mL) subcutaneous pen (Novolog .COMPLEX #15 mL FlexPen U-100 Insulin aspart) carvedilol 12.5 mg tablet 12.5 mg PO BID 01/06/24 02/11/24 02/11/24 History clopidogrel 75 mg tablet 75 mg PO DAILY 01/06/24 02/11/24 02/11/24 History bumetanide 1 mg tablet 1 mg PO DAILY 02/11/24 02/11/24 Unknown History ticagrelor 90 mg tablet (Brilinta) 90 mg PO BID 02/11/24 02/12/24 02/11/24 History Allergies Allergy/AdvReac Type Severity Reaction Status Date / Time acetaminophen AdvReac Mild ADR-Gastrointestinal Verified 01/24/24 22:25 Upset Current Medications Generic Name Dose Route Start Last Admin Trade Name Freq PRN Reason Stop Dose Admin Atorvastatin Calcium 40 mg 02/11/24 21:00 02/11/24 20:06 Atorvastatin 40 Mg Tablet PO 40 mg BEDTIME SHAY Administration Gabapentin 100 mg 02/11/24 21:00 02/11/24 20:07 Gabapentin 100 Mg Capsule PO 100 mg TID SHAY Administration Heparin Sodium (Porcine) 5,000 unit 02/11/24 17:30 02/11/24 20:06 Heparin 5,000 Unit/Ml Inj 1 Ml SUBCUT 5,000 unit Q12H SHAY Administration Nicardipine/Sodium Chloride 20 mg in 200 mls @ 0 mls/hr 02/11/24 12:30 02/11/24 18:45 Cardene IV 0 mg/hr .Q0M SHAY 0 mls/hr Titration Protocol Per Protocol Insulin Human Lispro 0 unit 02/11/24 18:00 02/11/24 18:59 Insulin Lispro 100 Unit/1 Ml SUBCUT 8 unit TIDWM SHAY Administration Protocol Lisinopril 40 mg 02/11/24 21:00 02/11/24 20:07 Lisinopril 20 Mg Tablet PO 40 mg BEDTIME SHAY Administration Nitroglycerin 0.4 mg 02/11/24 18:13 02/11/24 19:18 Nitroglycerin 0.4 Mg Sublingual Tablet SUBLINGUAL 0.4 mg Q5M PRN Administration CHEST PAIN Sevelamer Carbonate 800 mg 02/11/24 21:00 02/11/24 20:08 Sevelamer 800 Mg Tablet PO Not Given TID SHAY Ticagrelor 90 mg 02/11/24 18:00 02/11/24 18:58 Ticagrelor 90 Mg Tablet PO 90 mg BID SHAY Administration PFSH Acute 2 PFSH: Medical History ESRD (end stage renal disease) Transaminitis Intractable nausea and vomiting Hyperlipidemia HTN (hypertension) CHF (congestive heart failure), NYHA class III Pulmonary hypertension CAD (coronary artery disease) Neurogenic bladder COVID-19 Tobacco dependence Drug abuse Anemia Community acquired pneumonia Esophagitis Long-term insulin use History of pancreatitis Celiac disease Recurrent UTI Non-alcoholic fatty liver disease Arnold-Chiari malformation Diabetic gastroparesis -continue Reglan Diabetic neuropathy associated with type 1 diabetes mellitus Headache, common migraine, intractable, with status migrainosus Pleural effusion 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 History of lung surgery -s/p LLL lobectomy secondary to cavitary pneumonia (2017) History of endoscopy History of cholecystectomy Family History Grandfather Diabetes Mother CAD (coronary artery disease) Diabetes Brother Acute lymphoblastic leukemia (ALL) in child Other Heart disease Hypertension Social History Smoking and tobacco/nicotine status: former use of tobacco/nicotine Quit status (tobacco/nicotine): has quit using Former quit date comment: She previously smoked <1/2 PPD, quit July 2023. Second hand smoke exposure: Yes Alcohol intake: never Substance/Drug Use: current Household members: children Housing: House Marital status: Single Current occupational status: unemployed Vitals/I&O/Wt Last Vital Signs Temp 98.0 F 02/11/24 20:00 Pulse 67 02/11/24 19:15 Resp 11 L 02/11/24 19:15 BP 127/82 08/20/24 19:15 Pulse Ox 99 02/11/24 19:15 O2 Del Method Room Air 02/11/24 19:15 02/11/24 02/11/24 02/11/24 06:59 14:59 22:59 Intake Total 47.5 / 47.5 576.667 / 624.167 Balance 47.5 / 47.5 576.667 / 624.167 Weight last 48 hrs Weight 57.47 kg Weight 56.245 kg Physical Exam 2 Narrative: Awake alert, no distress HEENT S1-S2 regular rate and rhythm. Data 02/12/24 03:57 02/12/24 03:57 A&P Assessment and plan (1) End stage renal disease on dialysis: 1. End-stage renal disease: HD per TTS schedule, plan for hemodialysis today and ultrafiltration as tolerated 2. Chest pain: Patient is followed by cardiology. Patient does have a known history of coronary artery disease with stents. 3. Accelerated hypertension: Resume home medications, she was briefly on Cardene drip which is currently off 4. Anemia: Hemoglobin at goal continue to monitor 5. Diabetes Patient evaluated using audiovisual cart. Time spent 40 minutes. Consult Attestations 2 Medical Necessity Statement: Per medicine team Coding Level of Care Code Acute Code for Chg Fwd Diagnoses End stage renal disease on dialysis N18.6; Z99.2
[2024-02-11] MEDS: heparin, porcine 1,000 unit/mL INJ 10 mL 10000 UNIT INTRACATH (21:35)
--- NOTE | 2024-02-11 21:41 | P.CONIM_ITS ---
Providers/Reason For Consult 2 Consulting Physician/Specialty*: JOSEY Eugene MD/cardiology Reason for Consult*: Patient with a history of coronary artery disease, status post multiple PCI, presenting with chest pain and uncontrolled blood pressure. Elevated troponin T. Recent change of Brilinta to Plavix Requesting Physician: Dr. Morse Attending Physician: Debbie Morse MD Primary Care Provider: SUZANNE Dias History of Present Illness History of Present Illness Donita Aguilar is a 38 year old female, with a history of atherosclerotic heart diseas, status post multiple PCI's, presenting with complaints of increasing chest pains and uncontrolled blood pressure. Cardiology consult is requested for further cardiac evaluation and recommendations This patient is known to have atherosclerotic heart disease and had a multiple PCI's in the past. She used to be followed up in [place]. For the last 1 year, she is being followed by Dr. Burch. In August of this year, she had a cardiac catheterization followed by PCI of the mid circumflex lesion. Her right coronary artery is chronically occluded at the mid segment. The LAD and the diagonal stents were found to be patent. In November of this year, she presented with again unstable anginal symptoms. Cardiac catheterization revealed a high- grade lesion in the mid left anterior descending artery. She underwent a PCI of this lesion at that time. She continued to have chest pains. She was placed on Brilinta instead of Plavix following the last coronary intervention. But this was changed to Plavix recently by the primary care provider since the patient could not afford the Brilinta. According the patient, she been having episodes of chest pain 2 or 3 times a day every day for the last more than a month. Lately, the intensity of these pains are getting worse. This morning around 5:00, she woke up with chest pain. The intensity of the pain was around 9/10. The pain was radiating across the chest and also to the back. She also had some radiation to the left shoulder and to the left arm. According the patient, the pain radiate to the back is somewhat new. She had some associated shortness of breath. No nausea, vomiting, sweating or palpitations. She took a 1 sublingual nitro. There was no significant improvement of the symptoms. So she did not bother to take another one. She was brought to the emergency room by ambulance around 10:00. She continued to have some chest discomfort. The intensity is much less. She was found to have accelerated hypertension, around 220/120. She was initially started on a nicardipine drip. Currently this is being tapered off. Her blood pressure is in the normal range at this time. She had a Myocardial perfusion imaging in December of this year. She was found to have no significant ischemia at that time. According the patient, the intensity of the pain is getting worse, even though the frequency remains the same. No definite precipitating factors. She has been compliant with the medications. Denies any smoking abuse or alcohol abuse. She is known to have chronic kidney disease and has been on dialysis since July of this year. She had the hemodialysis today in the hospital. She is known to have type 1 diabetes, high blood pressure, and dyslipidemia. Her mother had a myocardial infarction in her 40s. 3 of her brothers are doing okay with no significant heart disease. She has 2 children both of them were born with some kind of congenital heart disease. One of them . Details are not available. Review of Systems 2 Narrative: CONSTITUTIONAL: No fever or chills. EYES: No blurring of vision or other visual disturbances lately. ENT: No hoarseness of voice, auditory disturbances or sore throat. CARDIOVASCULAR: As mentioned above. RESPIRATORY: No significant cough. GASTROINTESTINAL: History of pancreatitis and celiac disease. GENITOURINARY: On hemodialysis. Has a subclavian dialysis catheter on the right side INTEGUMENTARY: No skin rashes or history of skin cancer. NEURO: No transient ischemic attacks or amaurosis. PSYCHIATRIC: No history of psychosis or major depression. HEMATOLOGIC: No bleeding disorders or significant anemia. ENDOCRINE: No history of polyuria or polydipsia. MUSCULOSKELETAL: No recent joint pain or swelling. ALLERGY/IMMUNOLOGY: As mentioned above. Medications/Allergies Home Medications Medication Instructions Recorded Confirmed Last Taken Type blood-glucose meter,continuous #1 ea 06/12/22 02/11/24 Unknown Rx (Dexcom G6 Crisis Nurse) blood-glucose sensor (Dexcom G6 #3 ea 06/12/22 02/11/24 Unknown Rx Sensor device) blood-glucose transmitter (Dexcom #1 ea 06/12/22 02/11/24 Unknown Rx G6 Transmitter device) fluticasone furoate 100 1 inh inhalation DAILY PRN 09/14/23 02/11/24 09/20/23 History mcg-vilanterol 25 mcg/dose Shortness Of Breath inhalation powder (Breo Ellipta) sevelamer carbonate 800 mg tablet 800 mg PO TID #90 tabs 09/16/23 02/11/24 02/11/24 Rx atorvastatin 40 mg tablet 40 mg PO BEDTIME 11/27/23 02/11/24 02/10/24 History clonidine HCl 0.1 mg tablet See Rx Instructions .Route 11/27/23 02/11/24 Unknown History .COMPLEX PRN Blood Pressure lisinopril 40 mg tablet 40 mg PO BEDTIME 11/27/23 02/11/24 02/10/24 History aspirin 81 mg tablet,delayed 81 mg PO QAM 12/20/23 02/11/24 01/06/24 History release escitalopram oxalate 10 mg tablet 10 mg PO DAILY 12/27/23 02/11/24 02/11/24 History (Lexapro) gabapentin 100 mg capsule 100 mg PO TID 12/27/23 02/11/24 02/11/24 History insulin aspart U-100 100 unit/mL See Rx Instructions .Route 01/01/24 02/11/24 02/10/24 Rx (3 mL) subcutaneous pen (Novolog .COMPLEX #15 mL FlexPen U-100 Insulin aspart) carvedilol 12.5 mg tablet 12.5 mg PO BID 01/06/24 02/11/24 02/11/24 History clopidogrel 75 mg tablet 75 mg PO DAILY 01/06/24 02/11/24 02/11/24 History bumetanide 1 mg tablet 1 mg PO DAILY 02/11/24 02/11/24 Unknown History ticagrelor 90 mg tablet (Brilinta) 90 mg PO BID 02/11/24 02/11/24 History Allergies Allergy/AdvReac Type Severity Reaction Status Date / Time acetaminophen AdvReac Mild ADR-Gastrointestinal Verified 01/24/24 22:25 Upset Current Medications Generic Name Dose Route Start Last Admin Trade Name Freq PRN Reason Stop Dose Admin Atorvastatin Calcium 40 mg 02/11/24 21:00 02/11/24 20:06 Atorvastatin 40 Mg Tablet PO 40 mg BEDTIME SHAY Administration Gabapentin 100 mg 02/11/24 21:00 02/11/24 20:07 Gabapentin 100 Mg Capsule PO 100 mg TID SHAY Administration Heparin Sodium (Porcine) 5,000 unit 02/11/24 17:30 02/11/24 20:06 Heparin 5,000 Unit/Ml Inj 1 Ml SUBCUT 5,000 unit Q12H SHAY Administration Nicardipine/Sodium Chloride 20 mg in 200 mls @ 0 mls/hr 02/11/24 12:30 02/11/24 18:45 Cardene IV 0 mg/hr .Q0M SHAY 0 mls/hr Titration Protocol Per Protocol Insulin Human Lispro 0 unit 02/11/24 18:00 02/11/24 18:59 Insulin Lispro 100 Unit/1 Ml SUBCUT 8 unit TIDWM SHAY Administration Protocol Lisinopril 40 mg 02/11/24 21:00 02/11/24 20:07 Lisinopril 20 Mg Tablet PO 40 mg BEDTIME SHAY Administration Nitroglycerin 0.4 mg 02/11/24 18:13 02/11/24 19:18 Nitroglycerin 0.4 Mg Sublingual Tablet SUBLINGUAL 0.4 mg Q5M PRN Administration CHEST PAIN Sevelamer Carbonate 800 mg 02/11/24 21:00 02/11/24 20:08 Sevelamer 800 Mg Tablet PO Not Given TID SHAY Ticagrelor 90 mg 02/11/24 18:00 02/11/24 18:58 Ticagrelor 90 Mg Tablet PO 90 mg BID SHAY Administration PFSH Acute 2 PFSH: Medical History ESRD (end stage renal disease) Transaminitis Intractable nausea and vomiting Hyperlipidemia HTN (hypertension) CHF (congestive heart failure), NYHA class III Pulmonary hypertension CAD (coronary artery disease) Neurogenic bladder COVID-19 Tobacco dependence Drug abuse Anemia Community acquired pneumonia Esophagitis Long-term insulin use History of pancreatitis Celiac disease Recurrent UTI Non-alcoholic fatty liver disease Arnold-Chiari malformation Diabetic gastroparesis -continue Reglan Diabetic neuropathy associated with type 1 diabetes mellitus Headache, common migraine, intractable, with status migrainosus Pleural effusion 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 History of lung surgery -s/p LLL lobectomy secondary to cavitary pneumonia (2017) History of endoscopy History of cholecystectomy Family History Grandfather Diabetes Mother CAD (coronary artery disease) Diabetes Brother Acute lymphoblastic leukemia (ALL) in child Other Heart disease Hypertension Social History Smoking and tobacco/nicotine status: former use of tobacco/nicotine Quit status (tobacco/nicotine): has quit using Former quit date comment: She previously smoked <1/2 PPD, quit July 2023. Second hand smoke exposure: Yes Alcohol intake: never Substance/Drug Use: current Household members: children Housing: House Marital status: Single Current occupational status: unemployed Vitals/I&O/Wt Last Vital Signs Temp 98.0 F 02/11/24 20:00 Pulse 67 02/11/24 19:15 Resp 11 L 02/11/24 19:15 BP 127/82 02/11/24 19:15 Pulse Ox 99 02/11/24 19:15 O2 Del Method Room Air 02/11/24 19:15 02/11/24 02/11/24 02/11/24 06:59 14:59 22:59 Intake Total 47.5 / 47.5 576.667 / 624.167 Balance 47.5 / 47.5 576.667 / 624.167 Weight last 48 hrs Weight 126 lb 11.2 oz Weight 124 lb Physical Exam 2 Narrative: GENERAL: The patient is alert and oriented times three. Not in any acute distress. HEENT: No significant pallor, icterus or lymphadenopathy.Oral cavity: There are no mucous membrane lesions. NECK: Trachea appears to be central. No masses noted. No JVD or thyromegaly appreciated. RESPIRATORY: Chest is symmetrical. No intercostals muscle retraction or any accessory muscle activation. There is no chest wall tenderness. Breath sounds are heard bilaterally. No rales or rhonchi heard. No evidence of any consolidation. BREASTS: Deferred. HEART: The heart sounds are normal. No S3 or S4. No significant murmurs. No pericardial rub. Dialysis catheter at the right subclavian vein ABDOMEN: No vessel pulsations or distention. No tenderness. No organomegaly appreciated. Bowel sounds are normally heard. : Deferred. RECTAL: Deferred. LYMPHATIC: No lymphadenopathy noted in the neck. EXTREMITIES: No edema or cyanosis. No clubbing. Right radial pulses weak MUSCULOSKELETAL: No acute joint deformities or swelling SKIN: There are no significant rashes or ecchymosis NEUROPSYCHIATRIC: The patient is alert and oriented x3. Appears to be in a good mood. No tremors or rigidity noted. Data 02/11/24 12:01 02/11/24 12:01 Other Labs: Laboratory Last Values WBC 6.52 10^3/uL (3.29-11.43) 02/11/24 12:01 RBC 4.32 10^6/uL (3.85-5.65) 02/11/24 12:01 Hgb 12.30 g/dL (11.27-16.99) 02/11/24 12:01 Hct 37.0 % (36-47) 02/11/24 12:01 MCV 85.6 fl (85-98) 02/11/24 12:01 MCH 28.5 pg (27-33) 02/11/24 12:01 MCHC 33.2 g/dL (30-55) 02/11/24 12:01 RDW 14.1 % (12.1-15.1) 02/11/24 12:01 Plt Count 156 10^3/cmm (157-399) L 02/11/24 12:01 MPV 9.7 fL (7.4-10.4) 02/11/24 12:01 Neut % (Auto) 71.7 % 02/11/24 12:01 Lymph % (Auto) 17.6 % 02/11/24 12:01 [place] % (Auto) 6.3 % 02/11/24 12:01 Eos % (Auto) 3.2 % 02/11/24 12:01 Baso % (Auto) 0.9 % 02/11/24 12:01 Neut # (Auto) 4.67 10^3/uL (1.8-7.7) 02/11/24 12:01 Lymph # (Auto) 1.2 10^3/uL (0.8-4.8) 02/11/24 12:01 [place] # (Auto) 0.4 10^3/uL (0.2-0.9) 02/11/24 12:01 Eos # (Auto) 0.2 10^3/uL (0.0-0.8) 02/11/24 12:01 Baso # (Auto) 0.1 10^3/uL (0.0-0.1) 02/11/24 12:01 Nucleated RBC % (auto) 0 % 02/11/24 12:01 Nucleated RBCs # 0.0 /100WBC 02/11/24 12:01 Sodium 140 mmol/L (136-145) 02/11/24 12:01 Potassium 5.0 mmol/L (3.5-5.1) 02/11/24 12:01 Chloride 101 mmol/L (98-107) 02/11/24 12:01 Carbon Dioxide 22 mmol/L (22-29) 02/11/24 12:01 Anion Gap 22.0 (5-19) H 02/11/24 12:01 BUN 48 mg/dL (6-20) H 02/11/24 12:01 Creatinine 6.1 mg/dL (0.5-0.9) H* 02/11/24 12:01 GFR Calculation 7.7 mL/min (90-130) L 02/11/24 12:01 Glucose 244 mg/dL (65-115) H 02/11/24 12:01 POC Glucose 141 mg/dL (70-110) H 02/11/24 21:54 Calculated Osmolality 311 mOsm/kg (285-295) H 02/11/24 12:01 Calcium 8.8 mg/dL (8.5-10.5) 02/11/24 12:01 Total Bilirubin 0.3 mg/dL (0.15-1.2) 02/11/24 12:01 AST 62 U/L (0-32) H 02/11/24 12:01 ALT 79 U/L (0-33) H 02/11/24 12:01 Alkaline Phosphatase 173 U/L (35-105) H 02/11/24 12:01 Troponin T Baseline 297 ng/L (0-10) H* 02/11/24 12:01 Troponin T 120 Minute 277.5 ng/L (0-10) H 02/11/24 14:07 Delta Troponin T -19.5 ABS# (0-10) L 02/11/24 14:07 Troponin T Hi Sens 6Hr 300.0 ng/L (0-10) H 02/11/24 18:18 Troponin T Hi Sens 6Hr Delta 3.0 ng/L (0-12) 02/11/24 18:18 Total Protein 7.5 g/dL (6.6-8.7) 02/11/24 12:01 Albumin 3.7 g/dL (3.5-5.2) 02/11/24 12:01 Globulin 3.8 g/dL (1.3-4.6) 02/11/24 12:01 Serum Ketones Negative (Negative) 02/11/24 12:01 Other data: EKG from today Normal sinus rhythm with poor R wave progression. Diffuse nonspecific T wave changes. Myocardial perfusion imaging in December 2023 1. Abnormal myocardial perfusion imaging with small to medium sized area of prior infarct with minimal nina-infarct ischemia in the left cirucmflex artery territory 2. LV systolic function is mildly reduced with EF of 47% Echocardiogram on 12/30/2023 Moderate concentric left ventricular hypertrophy. Slightly dyskinetic basal inferior wall segment.Grade III/IV diastolic dysfunction (restrictive filling pattern), severely elevated filling pressures. Normal LV size with an ejection fraction of 55%. Mildly increased left atrial size. Mild mitral valve regurgitation. There is no pericardial effusion. There are no intracardiac masses. Compared to the study from 11/27/2023, there may not be a significant change Cardiac catheterization in November 2023 * Left Main has no significant disease. * Circumflex has patent prior stent. * Right Coronary Artery has patent prior stent. * Mid Left Anterior Descending artery: significant 80% stenosis, KORIN: 3 flow. * Coronary angiography shows right dominance. Cardiac catheterization in August 2023 * Left Main has no significant disease. * Left Anterior Descending has patent prior stent. Diagonal artery also has patent prior stent. Diagonal artery has a mid to distal vessel 40-50% stenosis. . * Right Coronary Artery is chronically occluded in the midsegment. Has strong collaterals from LAD system.. * Left circumflex artery is small to medium sized. Mid Circumflex: obstructive 95-99% stenosis, KORIN: 2 flow. Possible collaterals. * Coronary angiography shows right dominance. A&P Assessment and plan (1) Atherosclerotic heart disease of [place] coronary artery with unstable angina pectoris: Patient's symptoms may suggest unstable angina. However she has atypical features. The pain is not responding to sublingual nitro. She apparently had similar symptoms in the past requiring cardiac catheterization and ended up in having PCI's. EKG does not show any acute changes. Her troponins are chronically elevated with no significant delta at this time. Patient may be continued on the IV heparin and other current medications. Even though the Brilinta has stronger platelet inhibition compared to Plavix, in some of the recent studies noted no significant differences in the platelet inhibition. Qualifiers: [place] vs. transplanted heart: [place] heart Qualified Code(s): I25.110 - Atherosclerotic heart disease of [place] coronary artery with unstable angina pectoris (2) Elevated troponin: Patient has a chronically elevated troponin T possibly from the end-stage renal failure. She has no significant delta so far. The EKG is unremarkable. (3) Accelerated hypertension: Patient was blood pressure seems to be in the normal range at this time. May continue on the current medications. (4) Hyperlipidemia: May continue on the current medications. Qualifiers: Hyperlipidemia type: mixed hyperlipidemia Qualified Code(s): E78.2 - Mixed hyperlipidemia (5) Diabetes mellitus: Aggressive management as per the primary. Qualifiers: Diabetes mellitus complication detail: with other circulatory complications Diabetes mellitus complication status: with circulatory complication Diabetes mellitus type: type 1 Qualified Code(s): E10.59 - Type 1 diabetes mellitus with other circulatory complications (6) End stage renal disease on dialysis: Patient is on hemodialysis, 3 times a week. This may be continued. (7) Abdominal pain: This may need to be further evaluated. Her symptoms seems to be chronic. Qualifiers: Abdominal location: left upper quadrant Qualified Code(s): R10.12 - Left upper quadrant pain Plan Because of the worsening chest pains, it may be appropriate to do a repeat cardiac catheterization to reevaluate the coronary status and decide on further management. Patient may be kept n.p.o. after midnight. Will continue on the current treatment as mentioned above. I will be discussing her condition with Dr. Burch, her primary aquatics assistant department head. Based on the results of the above tests and the patient's clinical progress, further recommendations will be made. Thank you for the opportunity to evaluate this patient and make these recommendations Consult Attestations 2 Medical Necessity Statement: Patient requires continued hospital stay for close monitoring and further management Coding Level of Care Code [id number] Diagnoses Atherosclerosis of [place] coronary artery of [place] heart with unstable angina pectoris I25.110 [place] vs. transplanted heart: [place] heart Elevated troponin R77.8 Accelerated hypertension I10 Mixed hyperlipidemia E78.2 Hyperlipidemia type: mixed hyperlipidemia Type 1 diabetes mellitus with other circulatory complication E10.59 Diabetes mellitus complication detail: with other circulatory complications Diabetes mellitus complication status: with circulatory complication Diabetes mellitus type: type 1 End stage renal disease on dialysis N18.6; Z99.2 Abdominal pain R10.12 Abdominal location: left upper quadrant
--- NOTE | 2024-02-11 21:50 | PC.HD ---
02/11/24 Pre-tx patient was hypertensive, c/o left medial chest pain, easily reproducible, pt's RN notified. NTG SL given by pt's RN per Dr Morse's order and pt developed dizziness and SOB (O2 sat 98%), BP 75/49, recovered with turning off UF, lowering HOB, and 50ml NS bolus via HD lines. Recurring asymptomatic hypotension, SBP 83-94, precluded reaching fluid removal goal. Dr Paulson notified of hypotensive episodes and fluid removal goal not met.
[2024-02-11 22:07] LABS: Glucose Point of Care 141 mg/dL (70-110)
[2024-02-12] VITALS (38 sets, daily range): BP systolic 117–193; BP diastolic 58–97; PULSE 0–72; RESP 0–18; TEMP 36.8–37.6; O2SAT 96–100; BMI 23.8
--- NOTE | 2024-02-12 01:47 | PC.NURSE ---
Diarrhea: Pt reports diarrhea for the last week. BM is loose and pt was partly incontinent of stool. Dr. Díaz notified, new order for C.diff stool collection.
[2024-02-12 02:34] LABS: C.Diff PCR (Lab) NEGATIVE (Negative)
[2024-02-12 04:21] LABS: Basophils # 0.1 10^3/uL (0.0-0.1); Basophils % 1.1 %; Eosinophils # 0.2 10^3/uL (0.0-0.8); Eosinophils % 3.9 %; Lymphocytes # 1.3 10^3/uL (0.8-4.8); Mean Corpuscular HGB Conc 32.8 g/dL (30-55); Mean Corpuscular Hemoglobin 28.2 pg (27-33); Mean Corpuscular Volume 85.8 fl (85-98); Mean Platelet Volume 9.5 fL (7.4-10.4); Monocytes # 0.5 10^3/uL (0.2-0.9); Monocytes % 9.9 %; Neutrophils # 3.26 10^3/uL (1.8-7.7); Neutrophils % 60.7 %; Nucleated Red Blood Cells % 0 %; Platelet Count 151 10^3/cmm (157-399); Red Blood Count 3.73 10^6/uL (3.85-5.65); Red Cell Distribution Width 14.2 % (12.1-15.1); White Blood Count 5.37 10^3/uL (3.29-11.43)
[2024-02-12 04:41] LABS: Alanine Aminotransferase 97 U/L (0-33); Albumin Level 3.4 g/dL (3.5-5.2); Alkaline Phosphatase 159 U/L (35-105); Anion Gap 16.7 (5-19); Aspartate Amino Transferase 84 U/L (0-32); Blood Urea Nitrogen 24 mg/dL (6-20); Calcium 8.4 mg/dL (8.5-10.5); Carbon Dioxide 25 mmol/L (22-29); Chloride 103 mmol/L (98-107); Creatinine Clr Calc Pharmacy 16.8007; Globulin 3.5 g/dL (1.3-4.6); Glomerular Filtration Rate 14.2 mL/min (90-130); Glucose 224 mg/dL (65-115); Osmolality Calculated 303 mOsm/kg (285-295); Phosphorus 4.7 mg/dL (2.5-4.5); Potassium 3.7 mmol/L (3.5-5.1); Sodium 141 mmol/L (136-145); Total Bilirubin 0.3 mg/dL (0.15-1.2); Total Protein 6.9 g/dL (6.6-8.7)
[2024-02-12 04:42] LABS: Magnesium 1.8 mg/dL (1.7-2.3)
[2024-02-12] MEDS: heparin 5,000 unit/mL INJ 1 mL 5000 UNIT SUBCUT ×2 (05:29→17:21)
[2024-02-12] MEDS: aspirin 81 mg EC Tablet PO (05:29)
[2024-02-12] MEDS: nicardipine 20 MG/200 ML PREMIX 50 MG IV (05:37)
--- NOTE | 2024-02-12 05:38 | PC.NURSE ---
Elevated BP: BP began trending up @0400. Notified Dr. Díaz @0500 via Volt of current vital signs and concerns for resuming Cardene drip that has been off for approximately 10 hour, no response. Called Dr. Díaz @0530 to report BP of 193/97- New order to resume Cardene drip, see MAR for titrations.
[2024-02-12 06:16] LABS: Charge for UA Resulting for Rev
[2024-02-12 06:20] LABS: Bilirubin Urine Negative (Negative); Blood Urine 2+ (Negative); Glucose Urine UA 2+ (Normal); Ketones Urine Negative (Negative); Leukocyte Esterase Urine Negative (Negative); Nitrate Urine Negative (Negative); Specific Gravity, Urine 1.013 (1.005-1.030); Urine Appearance Cloudy (CLEAR); Urine Color Yellow (Yellow); Urobilinogen Urine 0.2 mg/dL (Negative); pH Urine 7.5 (5-7)
[2024-02-12 06:40] LABS: Protein Urine 3+ (Negative)
[2024-02-12 06:42] LABS: UA Manual Slide Review YES
[2024-02-12 06:43] LABS: Bacteria Urine 1+ /hpf; RBC Urine 15-25 /hpf (0-2); Squamous Epithelial Cell Urine 15-25 /hpf (0-5); WBC Urine 0-4 /hpf (0-5)
[2024-02-12 06:44] LABS: Add Urine Culture? No
[2024-02-12 07:48] LABS: Glucose Point of Care 257 mg/dL (70-110)
--- NOTE | 2024-02-12 08:10 | P.PN_ITS ---
Subjective 2 Subjective: back on cardene gtt Medications: Reviewed: Yes Vitals/I&O/Wt Last Vital Signs Temp 99.7 F H 02/12/24 07:30 Pulse 66 02/12/24 07:30 Resp 10 L 02/12/24 07:30 BP 122/69 02/12/24 07:30 Pulse Ox 97 02/12/24 07:30 O2 Del Method Room Air 02/12/24 07:30 02/11/24 02/12/24 02/12/24 22:59 06:59 14:59 Intake Total 1126.667 / 1174.167 45.000 / 1219.167 Output Total 2671 / 2671 290 / 2961 Balance -1544.333 / -1496.833 -245.000 / -1741.833 Weight last 48 hrs Weight 55.474 kg Weight 56.1 kg Weight 57.47 kg Weight 56.245 kg Physical Exam 2 Narrative: Awake alert, no distress HEENT S1-S2 regular rate and rhythm. lungs clear no edema Data 02/12/24 03:57 02/12/24 03:57 A&P Assessment and plan (1) End stage renal disease on dialysis: 1. End-stage renal disease: HD per TTS schedule,s/p HD yesterday , and ultrafiltration as tolerated 2. Chest pain: Patient is followed by cardiology. Patient does have a known history of coronary artery disease with stents. 3. Accelerated hypertension: Resume home medications, she was briefly on Cardene drip which is currently off 4. Anemia: Hemoglobin at goal continue to monitor 5. Diabetes Patient evaluated using audiovisual cart. Time spent 40 minutes. Attestations 2 Medical Necessity Statement*: per medicne Coding Level of Care Code Acute Code for [facility] Fwd Diagnoses End stage renal disease on dialysis N18.6; Z99.2
[2024-02-12] MEDS: insulin lispro 100 unit/1 mL SUBCUT ×4 (08:12→21:44)
[2024-02-12] MEDS: ticagrelor 90 mg Tablet PO ×2 (08:13→17:21)
[2024-02-12] MEDS: carvedilol 12.5 mg Tablet PO ×2 (08:13→10:00)
[2024-02-12] MEDS: pantoprazole DR 40 mg Tablet PO (08:13)
[2024-02-12] MEDS: gabapentin 100 mg Capsule PO ×3 (08:14→21:43)
[2024-02-12] MEDS: escitalopram 10 mg Tablet PO (08:14)
--- NOTE | 2024-02-12 08:50 | P.PN_ITS ---
Subjective 2 Subjective: Patient was sleeping comfortably. She says has constant chest pain. Worse with deep inspiration and palpation. Vitals/I&O/Wt Last Vital Signs Temp 99.7 F H 02/12/24 07:30 Pulse 66 02/12/24 07:30 Resp 10 L 02/12/24 07:30 BP 122/69 02/12/24 07:30 Pulse Ox 97 02/12/24 07:30 O2 Del Method Room Air 02/12/24 07:30 02/11/24 02/12/24 02/12/24 22:59 06:59 14:59 Intake Total 1126.667 / 1174.167 45.000 / 1219.167 Output Total 2671 / 2671 290 / 2961 Balance -1544.333 / -1496.833 -245.000 / -1741.833 Weight last 48 hrs Weight 122 lb 4.8 oz Weight 123 lb 10.869 oz Weight 126 lb 11.2 oz Weight 124 lb Physical Exam 2 Narrative: GENERAL: Patient is alert, awake and oriented x3. [] NECK: No jugular vein distension. [] HEENT: No cyanosis. No icterus. No pallor. [] HEART: Regular S1 and S2. No murmur, rub or gallop. [] LUNGS: Clear to auscultate bilaterally. [] CENTRAL NERVOUS SYSTEM: Grossly nonfocal. [] EXTREMITIES: Lower extremities with 1+ edema bilaterally. Data 02/12/24 23:30 02/12/24 22:42 A&P Assessment and plan (1) Chest pain: (2) Accelerated hypertension: (3) CAD (coronary artery disease): (4) Hyperlipidemia: Qualifiers: Hyperlipidemia type: mixed hyperlipidemia Qualified Code(s): E78.2 - Mixed hyperlipidemia (5) HTN (hypertension): Qualifiers: Hypertension type: primary hypertension Qualified Code(s): I10 - Essential (primary) hypertension Plan Patient's chest pain has mostly atypical features. Has prior stents. Stress test last month for similar presentation did not show significant ischemia. Will recommend obtaining limited echocardiogram. If LV systolic function is normal, with atypical chest pain, will continue medical therapy. Blood pressure is elevated. We will uptitrate coreg to 25mg BID and start Hydralazine 50mg tid. Thank you for involving us with care of this patient. We will continue to follow. Please call with questions. Attestations 2 Medical Necessity Statement*: Care expected to cross 2 midnights. Coding Level of Care Code Acute Code for [facility] Fwd Diagnoses Chest pain R07.9 Accelerated hypertension I10 CAD (coronary artery disease) I25.10 Mixed hyperlipidemia E78.2 Hyperlipidemia type: mixed hyperlipidemia Primary hypertension I10 Hypertension type: primary hypertension
--- NOTE | 2024-02-12 09:23 | USCV_ITS ---
Donita Aguilar Age: 38 Gender: F : 1985 Exam Date: 02/12/2024 11:27 Ordering Phys: Riccardo Burch M.D ([email or web address]) Technologist: [place] [facility] [place]: ef BP: 156 / 82 HR: Rhythm: Sinus Technical Quality: Adequate MEASUREMENTS (Male / Female) Normal Values 2D ECHO LV Diastolic Diameter PLAX 5.1 cm 4.2 - 5.9 / 3.9 - 5.3 cm IVS Diastolic Thickness 0.9 cm 0.6 - 1.0 / 0.6 - 0.9 cm IVS Systolic Thickness 1.7 cm LVPW Diastolic Thickness 1.2 cm 0.6 - 1.0 / 0.6 - 0.9 cm LVPW Systolic Thickness 1.5 cm LV Ejection Fraction 2D Teich 70.3 % LV Ejection Fraction MOD 4C 62.5 % LV Ejection Fraction MOD 2C 65.2 % LV Ejection Fraction 2C AL 66.2 % RA Systolic Volume 4C AL 23.8 ml RA Systolic Volume 4C MOD 22.6 ml IVC Diameter 1.3 cm M-MODE LA Ao Ratio MM 1.4 AV Cusp Separation MM 1.8 cm FINDINGS Left Ventricle Right Ventricle Right Atrium Left Atrium Mitral Valve Aortic Valve Tricuspid Valve Pulmonic Valve Pericardium Aorta IVC CONCLUSIONS Limited echocardiogram performed to assess LV systolic function. LV systolic function is normal with EF 55 to 60%. No regional wall motion abnormalities are seen. Riccardo Burch MD (Electronically Signed) Final Date: 12 February 2024 12:27 S
[2024-02-12] MEDS: hyDRALAzine 50 mg Tablet PO ×3 (10:00→21:43)
[2024-02-12] MEDS: sevelamer 800 mg Tablet PO ×3 (10:00→21:43)
[2024-02-12 12:16] LABS: Glucose Point of Care 147 mg/dL (70-110)
--- NOTE | 2024-02-12 14:12 | PC.NURSE ---
Report called to [employer]. Report given to ROLA Calvo.
--- NOTE | 2024-02-12 14:57 | PC.NURSE ---
Pt transferred to [facility] [place] 275. All belongings with pt.
--- NOTE | 2024-02-12 15:15 | P.PN_ITS ---
Subjective 2 Subjective: Patient was seen this morning, denies any fevers, no chills, no cough, no abdominal pain, her chest pain has subsided, Vitals/I&O/Wt Last Vital Signs Temp 99.7 F H 02/12/24 07:30 Pulse 66 02/12/24 14:42 Resp 11 L 02/12/24 14:00 BP 163/87 02/12/24 14:00 Pulse Ox 98 02/12/24 14:00 O2 Del Method Room Air 02/12/24 14:00 02/12/24 02/12/24 02/12/24 06:59 14:59 22:59 Intake Total 45.000 / 1219.167 0 / 0 Output Total 290 / 2961 Balance -245.000 / -1741.833 0 / 0 Weight last 48 hrs Weight 55.474 kg Weight 56.1 kg Weight 57.47 kg Weight 56.245 kg Physical Exam 2 Const: COMMON NORMALS: no acute distress and patient oriented x3 Resp: COMMON NORMALS: normal respiratory effort, No retractions, No use of accessory muscles and clear to auscultation bilaterally AUSCULTATION: clear to auscultation bilaterally Cardio: COMMON NORMALS: regular rate, regular rhythm, S1 normal heart sound present and S2 normal heart sound present RATE: regular rate RHYTHM: r egular rhythm HEART SOUNDS: S1 normal heart sound present and S2 normal heart sound present GI: COMMON NORMALS: Normal to inspection, nondistended, normoactive bowel sounds present and non-tender Extremity: COMMON NORMALS: no pedal edema Neuro: COMMON NORMALS: patient oriented x3 Psych: COMMON NORMALS: mental status grossly normal Data 02/12/24 03:57 02/12/24 03:57 A&P Assessment and plan (1) Chest pain: -Order cardiac echo -Coreg dose increased -Monitor for chest pain -Monitor clinical status -Telemetry monitoring Describes some typical as well as atypical features. She has known coronary artery disease with previous stents most recently with an LAD stent in November of this year. She had cardiac stress testing last month for another episode of chest pain. She has had angina for some time. She always has chest pain to some degree but the pain today was worse than usual. Baseline troponin around 290 with a negative 2-hour delta to 277. 6-hour troponin 300 she had been previously placed on Brilinta but has had a change of insurance in the last month or 2 and is back on clopidogrel presently as her new insurance would not cover Brilinta from history obtained. Some of her pain seems musculoskeletal in nature as partially reproducible on exam. The best her chest pain ever is is probably a 2 or so out of 10 by her report. (2) Atherosclerotic heart disease of [place] coronary artery with other forms of angina pectoris: Same as above. Chronically on aspirin, antiplatelet therapy, statin, beta- blockade and RADHA inhibitor. (3) Accelerated hypertension: -Off Cardene drip -Coreg increased to 25 mg twice daily (4) Hyperlipidemia: Chronically on statin therapy Qualifiers: Hyperlipidemia type: mixed hyperlipidemia Qualified Code(s): E78.2 - Mixed hyperlipidemia (5) Diabetes mellitus: Continue insulin therapy Qualifiers: Diabetes mellitus complication detail: with other circulatory complications Diabetes mellitus complication status: with circulatory complication Diabetes mellitus type: type 1 Qualified Code(s): E10.59 - Type 1 diabetes mellitus with other circulatory complications (6) End stage renal disease on dialysis: Dialysis on Tuesdays, and Saturdays. Missed today due to chest pain as dialysis clinic sent her here. Current labs are consistent with intended dialysis day. Plan Insulin for diabetes control Continue home aspirin, statin, beta-blockade Continue home lisinopril Presently will hold bumetanide given report of more normalized, even low blood pressures for her lately despite significant hypertension upon presentation today Continue home escitalopram Continue home gabapentin Continue home sevelamer Nonpharmacologic options for musculoskeletal pain VTE prophylaxis: heparin GI Prophylaxis: PPI Antibiotics: none Pending studies: cardiac enzymes, morning labs Telemetry: ordered due to cardiac issues Sanders: not currently indicated Line(s): peripheral IVs plus HD catheter Disposition plan: Home with outpatient follow up anticipated Code Status: Full Code Supportive care otherwise Findings, concerns and plans were discussed with patient and she was given an opportunity to ask questions Attestations 2 Medical Necessity Statement*: Patient requires hospitalization for chest pain Diagnoses Chest pain R07.9 Atherosclerotic heart disease of [place] coronary artery with other forms of angina pectoris I25.118 Accelerated hypertension I10 Mixed hyperlipidemia E78.2 Hyperlipidemia type: mixed hyperlipidemia Type 1 diabetes mellitus with other circulatory complication E10.59 Diabetes mellitus complication detail: with other circulatory complications Diabetes mellitus complication status: with circulatory complication Diabetes mellitus type: type 1 End stage renal disease on dialysis N18.6; Z99.2
[2024-02-12] MEDS: amlodipine 10 mg Tablet PO (16:07)
[2024-02-12 16:45] LABS: Glucose Point of Care 173 mg/dL (70-110)
[2024-02-12] MEDS: carvedilol 25 mg Tablet PO (17:21)
[2024-02-12] MEDS: lisinopril 20 mg Tablet 40 MG PO (21:43)
[2024-02-12] MEDS: atorvastatin 40 mg Tablet PO (21:43)
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
[2024-02-12] MEDS: morphine 4 mg/mL SDV 1 mL 2 MG IVP (22:40)
[2024-02-12] MEDS: iohexol 350 mg/mL 500 mL Btl (per mL) IV (23:09)
[2024-02-12 23:13] LABS: Albumin Level 3.5 g/dL (3.5-5.2); Blood Urea Nitrogen 37 mg/dL (6-20); Calcium 8.4 mg/dL (8.5-10.5); Carbon Dioxide 18 mmol/L (22-29); Chloride 104 mmol/L (98-107); Creatinine Clr Calc Pharmacy 12.2812; Globulin 3.8 g/dL (1.3-4.6); Glucose 241 mg/dL (65-115); Lipase 24 U/L (13-60); Osmolality Calculated 303 mOsm/kg (285-295); Sodium 138 mmol/L (136-145); Total Bilirubin 0.3 mg/dL (0.15-1.2); Total Protein 7.3 g/dL (6.6-8.7)
[2024-02-12 23:14] LABS: Lactate (Lactic Acid level) 1.4 mmol/L (0.5-2.2)
[2024-02-12 23:23] LABS: Alanine Aminotransferase 114 U/L (0-33); Anion Gap 20.6 (5-19); Aspartate Amino Transferase 84 U/L (0-32); Potassium 4.6 mmol/L (3.5-5.1)
[2024-02-12 23:24] LABS: Alkaline Phosphatase 163 U/L (35-105)
[2024-02-13] VITALS (13 sets, daily range): BP systolic 139–166; BP diastolic 73–93; PULSE 59–73; RESP 16–18; TEMP 36.4–37.5; O2SAT 96–99
[2024-02-13 00:08] LABS: Basophils # 0.1 10^3/uL (0.0-0.1); Basophils % 0.8 %; Eosinophils # 0.2 10^3/uL (0.0-0.8); Eosinophils % 3.3 %; Hematocrit 33.8 % (36-47); Lymphocytes # 1.8 10^3/uL (0.8-4.8); Lymphocytes % 29.8 %; Mean Corpuscular Hemoglobin 28.3 pg (27-33); Mean Corpuscular Volume 88.7 fl (85-98); Mean Platelet Volume 10.6 fL (7.4-10.4); Monocytes # 0.7 10^3/uL (0.2-0.9); Monocytes % 11.2 %; Neutrophils # 3.31 10^3/uL (1.8-7.7); Neutrophils % 54.7 %; Nucleated Red Blood Cells % 0 %; Platelet Count 155 10^3/cmm (157-399); Red Blood Count 3.81 10^6/uL (3.85-5.65); Red Cell Distribution Width 14.1 % (12.1-15.1); White Blood Count 6.05 10^3/uL (3.29-11.43)
[2024-02-13] MEDS: aspirin 81 mg EC Tablet PO (06:22)
[2024-02-13] MEDS: heparin 5,000 unit/mL INJ 1 mL 5000 UNIT SUBCUT ×2 (06:22→17:16)
[2024-02-13 06:31] LABS: Glucose Point of Care 213 mg/dL (70-110)
--- NOTE | 2024-02-13 08:02 | PM.PN ---
Subjective Subjective: Patient complaining of abdominal pain. No chest pain today. Vitals/I&O/Wt Last Vital Signs Temp 97.5 F L 02/13/24 07:29 Pulse 71 02/13/24 07:29 Resp 16 02/13/24 07:29 BP 159/85 02/13/24 07:29 Pulse Ox 96 02/13/24 07:29 O2 Del Method Room Air 02/13/24 07:29 02/12/24 02/13/24 02/13/24 22:59 06:59 14:59 Intake Total 1190 / 1190 200 / 1390 Balance 1190 / 1190 200 / 1390 Weight last 48 hrs Weight 131 lb 3.2 oz Weight 122 lb 4.8 oz Weight 123 lb 10.869 oz Weight 126 lb 11.2 oz Weight 124 lb Physical Exam Narrative: GENERAL: Patient is alert, awake and oriented x3. [] NECK: No jugular vein distension. [] HEENT: No cyanosis. No icterus. No pallor. [] HEART: Regular S1 and S2. No murmur, rub or gallop. [] LUNGS: Clear to auscultate bilaterally. [] CENTRAL NERVOUS SYSTEM: Grossly nonfocal. [] EXTREMITIES: Lower extremities with 1+ edema bilaterally. Data 02/14/24 02:50 02/14/24 02:50 A&P Assessment and plan (1) Chest pain: (2) Accelerated hypertension: (3) CAD (coronary artery disease): (4) Hyperlipidemia: Qualifiers: Hyperlipidemia type: mixed hyperlipidemia Qualified Code(s): E78.2 - Mixed hyperlipidemia (5) HTN (hypertension): Qualifiers: Hypertension type: primary hypertension Qualified Code(s): I10 - Essential (primary) hypertension Plan Patient is chest pain-free today. Blood pressure is improved. Continue with current medications. If blood pressure stays high, will uptitrate hydralazine to 100 mg daily. Abdominal pain workup per primary team. Thank you for involving us with care of this patient. We will continue to follow. Please call with questions. Attestations Medical Necessity Statement*: Care expected to cross 2 midnights. Coding Level of Care Code Acute Code for [facility] Diagnoses Chest pain R07.9 Accelerated hypertension I10 CAD (coronary artery disease) I25.10 Mixed hyperlipidemia E78.2 Hyperlipidemia type: mixed hyperlipidemia Primary hypertension I10 Hypertension type: primary hypertension
[2024-02-13] MEDS: epoetin alfa 10,000 unit/mL INJ 10000 UNIT SUBCUT (09:22)
[2024-02-13] MEDS: amlodipine 10 mg Tablet PO (09:23)
[2024-02-13] MEDS: carvedilol 25 mg Tablet PO ×2 (09:23→17:16)
[2024-02-13] MEDS: sevelamer 800 mg Tablet PO ×3 (09:23→21:08)
[2024-02-13] MEDS: pantoprazole DR 40 mg Tablet PO (09:23)
[2024-02-13] MEDS: hyDRALAzine 50 mg Tablet PO ×3 (09:23→21:08)
[2024-02-13] MEDS: escitalopram 10 mg Tablet PO (09:23)
[2024-02-13] MEDS: ticagrelor 90 mg Tablet PO ×2 (09:23→17:17)
[2024-02-13] MEDS: gabapentin 100 mg Capsule PO ×3 (09:23→21:08)
[2024-02-13] MEDS: insulin lispro 100 unit/1 mL SUBCUT (09:25)
[2024-02-13] MEDS: epoetin alfa 20,000 unit/mL MDV (NON-ESRD) 10000 UNIT SUBCUT (09:30)
--- NOTE | 2024-02-13 10:29 | P.PN_ITS ---
Subjective 2 Subjective: getting hd Medications: Reviewed: Yes Vitals/I&O/Wt Last Vital Signs Temp 97.5 F L 02/13/24 07:29 Pulse 70 02/13/24 08:21 Resp 16 02/13/24 08:21 BP 159/85 02/13/24 07:29 Pulse Ox 97 02/13/24 08:21 O2 Del Method Room Air 02/13/24 08:21 02/12/24 02/13/24 02/13/24 22:59 06:59 14:59 Intake Total 1190 / 1190 200 / 1390 240 / 240 Balance 1190 / 1190 200 / 1390 240 / 240 Weight last 48 hrs Weight 59.511 kg Weight 55.474 kg Weight 56.1 kg Weight 57.47 kg Physical Exam 2 Narrative: Awake alert, no distress HEENT S1-S2 regular rate and rhythm. lungs clear no edema Data 02/14/24 02:50 02/14/24 02:50 A&P Assessment and plan (1) End stage renal disease on dialysis: 1. End-stage renal disease: HD per TTS schedule, HD today , and ultrafiltration as tolerated 2. Chest pain: Patient is followed by cardiology. Patient does have a known history of coronary artery disease with stents. 3. Accelerated hypertension: Resumed home medications, she was briefly on Cardene drip which is currently off 4. Anemia: Hemoglobin at goal continue to monitor 5. Diabetes Patient evaluated using audiovisual cart. Time spent 40 minutes. Attestations 2 Medical Necessity Statement*: per wilson Coding Level of Care Code Acute Code for [facility] Fwd Diagnoses End stage renal disease on dialysis N18.6; Z99.2
[2024-02-13 10:49] LABS: Glucose Point of Care 206 mg/dL (70-110)
--- NOTE | 2024-02-13 10:49 | XR_ITS ---
WS: [id number] KUB, AP portable supine, 02/13/2024 Clinical Data: abdominal pain Comparison: KUB, 01/19/2024 Findings: No abnormal intraabdominal masses or calcifications are seen. There is no dilatated small bowel or ev idence of obstruction. There is air in the small bowel and the colon. There is contrast material in the bladder. Monitor varsha ds are on the chest wall. XR/XR KUB portable [id number] Impression: Mild generalized ileus.
[2024-02-13] MEDS: heparin, porcine 1,000 unit/mL INJ 10 mL 1000 UNIT IV (11:23)
--- NOTE | 2024-02-13 11:43 | P.PN_ITS ---
Subjective 2 Subjective: Patient was seen this morning, she complains of abdominal pain, she did have nausea throughout the night, no episodes of nausea this morning, denies any fevers, no chills, she tells me that she is not passing gas from below, she has not had a bowel movement this morning but did have 1 last night, complains of lower abdominal pain, Vitals/I&O/Wt Last Vital Signs Temp 98.2 F 02/13/24 11:13 Pulse 70 02/13/24 11:13 Resp 16 02/13/24 11:13 BP 166/90 02/13/24 11:13 Pulse Ox 97 02/13/24 11:13 O2 Del Method Room Air 02/13/24 11:13 02/12/24 02/13/24 02/13/24 22:59 06:59 14:59 Intake Total 1190 / 1190 200 / 1390 240 / 240 Balance 1190 / 1190 200 / 1390 240 / 240 Weight last 48 hrs Weight 59.511 kg Weight 55.474 kg Weight 56.1 kg Weight 57.47 kg Physical Exam 2 Const: COMMON NORMALS: no acute distress and patient oriented x3 Resp: COMMON NORMALS: normal respiratory effort, No retractions, No use of accessory muscles and clear to auscultation bilaterally AUSCULTATION: clear to auscultation bilaterally Cardio: COMMON NORMALS: regular rate, regular rhythm, S1 normal heart sound present and S2 normal heart sound present RATE: regular rate RHYTHM: r egular rhythm HEART SOUNDS: S1 normal heart sound present and S2 normal heart sound present GI: OTHER: Abdomen soft, slightly distended, good bowel sounds in all 4 quadrants, no guarding, no rebound, no rigidity, does have diffuse abdominal tenderness Extremity: COMMON NORMALS: no pedal edema Neuro: COMMON NORMALS: patient oriented x3 Psych: COMMON NORMALS: mental status grossly normal Data 02/12/24 23:30 02/12/24 22:42 A&P Assessment and plan (1) Chest pain: - cardiac echo CONCLUSIONS Limited echocardiogram performed to assess LV systolic function. LV systolic function is normal with EF 55 to 60%. No regional wall motion abnormalities are seen. -Coreg dose increased -Monitor for chest pain -Monitor clinical status -Telemetry monitoring -Plan on medical management (2) Atherosclerotic heart disease of [place] coronary artery with other forms of angina pectoris: Same as above. Chronically on aspirin, antiplatelet therapy, statin, beta- blockade and RADHA inhibitor. (3) Accelerated hypertension: -Off Cardene drip -Coreg increased to 25 mg twice daily (4) Hyperlipidemia: Chronically on statin therapy Qualifiers: Hyperlipidemia type: mixed hyperlipidemia Qualified Code(s): E78.2 - Mixed hyperlipidemia (5) Diabetes mellitus: Continue insulin therapy Qualifiers: Diabetes mellitus complication detail: with other circulatory complications Diabetes mellitus complication status: with circulatory complication Diabetes mellitus type: type 1 Qualified Code(s): E10.59 - Type 1 diabetes mellitus with other circulatory complications (6) End stage renal disease on dialysis: Dialysis on Tuesdays, and Saturdays. Missed today due to chest pain as dialysis clinic sent her here. Current labs are consistent with intended dialysis day. (7) Small bowel intussusception: CTA abdomen CT/CT angio abdomen pelvis 09525 IMPRESSION: 1. No aortic dissection. No aortic aneurysm. 2. There is a small bowel-small bowel intussusception in the left mid abdomen best seen images 98 through 113. No definite lead point. Finding may be transient. Repeat examination is recommended. No evidence of ischemic bowel. PLAN: -KUB this morning -N.p.o. -Gentle IV hydration -Nausea control, Zofran, Reglan -Serial abdominal exams -NG tube to be placed -Spoke to general surgery, Dr. Caceres, will consult Plan Insulin for diabetes control Continue home aspirin, statin, beta-blockade Continue home lisinopril Continue home escitalopram Continue home gabapentin Continue home sevelamer Nonpharmacologic options for musculoskeletal pain VTE prophylaxis: heparin GI Prophylaxis: PPI Antibiotics: none Pending studies: cardiac enzymes, morning labs Telemetry: ordered due to cardiac issues Sanders: not currently indicated Line(s): peripheral IVs plus HD catheter Disposition plan: Home with outpatient follow up anticipated Code Status: Full Code Plan for today small bowel intussusception abdominal pain, control nausea, vomiting, IV fluids, serial abdominal exam NG tube to be placed, general surgery consulted Attestations 2 Medical Necessity Statement*: Patient requires hospitalization for abdominal pain, nausea, vomiting secondary to small bowel intussusception Diagnoses Chest pain R07.9 Atherosclerotic heart disease of [place] coronary artery with other forms of angina pectoris I25.118 Accelerated hypertension I10 Mixed hyperlipidemia E78.2 Hyperlipidemia type: mixed hyperlipidemia Type 1 diabetes mellitus with other circulatory complication E10.59 Diabetes mellitus complication detail: with other circulatory complications Diabetes mellitus complication status: with circulatory complication Diabetes mellitus type: type 1 End stage renal disease on dialysis N18.6; Z99.2 Small bowel intussusception K56.1
[2024-02-13] MEDS: heparin, porcine 1,000 unit/mL INJ 10 mL 10000 UNIT INTRACATH (11:54)
[2024-02-13] MEDS: morphine 4 mg/mL SDV 1 mL 2 MG IVP ×3 (12:10→21:03)
[2024-02-13] MEDS: sodium chloride 0.9% 1,000 ML 50 ML IV (12:11)
--- NOTE | 2024-02-13 12:42 | P.CONIM_ITS ---
Providers/Reason For Consult 2 Consulting Physician/Specialty*: Dr. Teddy Caceres, DO/General Surgery Reason for Consult*: small bowel intussusception Attending Physician: Shola Carrera MD Primary Care Provider: SUZANNE Dias History of Present Illness History of Present Illness Donita Aguilar is a 38 year old female who presented to the hospital with chest pain. While in the hospital she also developed abdominal pain and nausea but no emesis. She underwent a CT of the abdomen pelvis today which showed small bowel intussusception. No definite obstruction. She had a bowel movement last night but denies passing any flatus today. She reports mild right upper quadrant abdominal pain that can radiate to her shoulder. Palpation makes the pain worse. Nothing makes pain better. Bowel movement last night did not have any blood. Review of Systems 2 General: Reports: 10 or more systems reviewed and unremarkable except in HPI and below Medications/Allergies Home Medications Medication Instructions Recorded Confirmed Last Taken Type blood-glucose meter,continuous #1 ea 06/12/22 02/11/24 Unknown Rx (Dexcom G6 Unix System Administrator) blood-glucose sensor (Dexcom G6 #3 ea 06/12/22 02/11/24 Unknown Rx Sensor device) blood-glucose transmitter (Dexcom #1 ea 06/12/22 02/11/24 Unknown Rx G6 Transmitter device) fluticasone furoate 100 1 inh inhalation DAILY PRN 09/14/23 02/11/24 09/20/23 History mcg-vilanterol 25 mcg/dose Shortness Of Breath inhalation powder (Breo Ellipta) sevelamer carbonate 800 mg tablet 800 mg PO TID #90 tabs 09/16/23 02/11/24 02/11/24 Rx atorvastatin 40 mg tablet 40 mg PO BEDTIME 11/27/23 02/11/24 02/10/24 History clonidine HCl 0.1 mg tablet See Rx Instructions .Route 11/27/23 02/11/24 Unknown History .COMPLEX PRN Blood Pressure lisinopril 40 mg tablet 40 mg PO BEDTIME 11/27/23 02/11/24 02/10/24 History aspirin 81 mg tablet,delayed 81 mg PO QAM 12/20/23 02/11/24 01/06/24 History release escitalopram oxalate 10 mg tablet 10 mg PO DAILY 12/27/23 02/11/24 02/11/24 History (Lexapro) gabapentin 100 mg capsule 100 mg PO TID 12/27/23 02/11/24 02/11/24 History insulin aspart U-100 100 unit/mL See Rx Instructions .Route 01/01/24 02/11/24 02/10/24 Rx (3 mL) subcutaneous pen (Novolog .COMPLEX #15 mL FlexPen U-100 Insulin aspart) carvedilol 12.5 mg tablet 12.5 mg PO BID 01/06/24 02/11/24 02/11/24 History clopidogrel 75 mg tablet 75 mg PO DAILY 01/06/24 02/11/24 02/11/24 History bumetanide 1 mg tablet 1 mg PO DAILY 02/11/24 02/11/24 Unknown History ticagrelor 90 mg tablet (Brilinta) 90 mg PO BID 02/11/24 02/12/24 02/11/24 History Allergies Allergy/AdvReac Type Severity Reaction Status Date / Time acetaminophen AdvReac Mild ADR-Gastrointestinal Verified 01/24/24 22:25 Upset Current Medications Generic Name Dose Route Start Last Admin Trade Name Tavaresq PRN Reason Stop Dose Admin Amlodipine Besylate 10 mg 02/12/24 15:20 02/15/24 08:13 Amlodipine 10 Mg Tablet PO 10 mg DAILY SHAY Administration Aspirin 81 mg 02/12/24 06:00 02/15/24 06:39 Aspirin 81 Mg Ec Tablet PO Not Given QAM SHAY Atorvastatin Calcium 40 mg 02/11/24 21:00 02/14/24 21:32 Atorvastatin 40 Mg Tablet PO 40 mg BEDTIME SHAY Administration Carvedilol 25 mg 02/12/24 18:00 02/15/24 08:12 Carvedilol 25 Mg Tablet PO 25 mg BID SHAY Administration Escitalopram Oxalate 10 mg 02/12/24 09:00 02/15/24 08:13 Escitalopram 10 Mg Tablet PO 10 mg DAILY SHAY Administration Gabapentin 100 mg 02/11/24 21:00 02/15/24 08:13 Gabapentin 100 Mg Capsule PO 100 mg TID SHAY Administration Heparin Sodium (Porcine) 5,000 unit 02/11/24 17:30 02/15/24 05:19 Heparin 5,000 Unit/Ml Inj 1 Ml SUBCUT 5,000 unit Q12H SHAY Administration Hydralazine HCl 50 mg 02/12/24 09:22 02/15/24 08:12 Hydralazine 50 Mg Tablet PO 50 mg TID SHAY Administration Sodium Chloride 1,000 mls @ 50 mls/hr 02/13/24 12:00 02/15/24 05:21 Sodium Chloride 0.9% IV 50 mls/hr .Q20H SHAY Administration Insulin Human Lispro 0 unit 02/11/24 21:00 02/14/24 21:31 Insulin Lispro 100 Unit/1 Ml SUBCUT Not Given BEDTIME SHAY Protocol Insulin Human Lispro 0 unit 02/11/24 18:00 02/15/24 07:31 Insulin Lispro 100 Unit/1 Ml SUBCUT Not Given TIDWM [facility] Protocol Lisinopril 40 mg 02/11/24 21:00 02/14/24 21:32 Lisinopril 20 Mg Tablet PO 40 mg BEDTIME SHAY Administration Metoclopramide HCl 5 mg 02/13/24 11:48 02/14/24 15:40 Metoclopramide 5 Mg/Ml Sdv 2 Ml IVP 5 mg Q6H PRN Administration NAUSEA AND VOMITING Morphine Sulfate 2 mg 02/13/24 11:48 02/15/24 05:20 Morphine 4 Mg/Ml Sdv 1 Ml IVP 2 mg Q4H PRN Administration SEVERE PAIN Nitroglycerin 0.4 mg 02/11/24 18:13 02/11/24 19:18 Nitroglycerin 0.4 Mg Sublingual Tablet SUBLINGUAL 0.4 mg Q5M PRN Administration CHEST PAIN Pantoprazole Sodium 40 mg 02/12/24 09:00 02/15/24 08:[address] 40 Mg Tablet PO 40 mg DAILY SHAY Administration Phenol 3 spray 02/14/24 15:33 02/15/24 05:21 Phenol Oral [place] 177 Ml MUCOUS MEM 3 spray Q2H PRN Administration SORE THROAT Sevelamer Carbonate 800 mg 02/11/24 21:00 02/15/24 08:12 Sevelamer 800 Mg Tablet PO 800 mg TID SHAY Administration Ticagrelor 90 mg 02/11/24 18:00 02/15/24 08:12 Ticagrelor 90 Mg Tablet PO 90 mg BID SHAY Administration PFSH Acute 2 PFSH: Medical History ESRD (end stage renal disease) Transaminitis Intractable nausea and vomiting Hyperlipidemia HTN (hypertension) CHF (congestive heart failure), NYHA class III Pulmonary hypertension CAD (coronary artery disease) Neurogenic bladder COVID-19 Tobacco dependence Drug abuse Anemia Community acquired pneumonia Esophagitis Long-term insulin use History of pancreatitis Celiac disease Recurrent UTI Non-alcoholic fatty liver disease Arnold-Chiari malformation Diabetic gastroparesis -continue Reglan Diabetic neuropathy associated with type 1 diabetes mellitus Headache, common migraine, intractable, with status migrainosus Pleural effusion 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 History of lung surgery -s/p LLL lobectomy secondary to cavitary pneumonia (2017) History of endoscopy History of cholecystectomy Family History Grandfather Diabetes Mother CAD (coronary artery disease) Diabetes Brother Acute lymphoblastic leukemia (ALL) in child Other Heart disease Hypertension Social History Smoking and tobacco/nicotine status: former use of tobacco/nicotine Quit status (tobacco/nicotine): has quit using Former quit date comment: She previously smoked <1/2 PPD, quit July 2023. Second hand smoke exposure: Yes Alcohol intake: never Substance/Drug Use: current Household members: children Housing: House Marital status: Single Current occupational status: unemployed Vitals/I&O/Wt Last Vital Signs Temp 98.0 F 02/15/24 07:23 Pulse 71 02/15/24 07:44 Resp 16 02/15/24 07:44 BP 169/79 02/15/24 07:23 Pulse Ox 97 02/15/24 07:44 O2 Del Method Room Air 02/15/24 07:44 02/14/24 02/15/24 02/15/24 22:59 06:59 14:59 Intake Total 30 / 1030 960 / 1990 Output Total 400 / 1250 200 / 200 Balance -370 / -220 960 / 740 -200 / -200 Weight last 48 hrs Weight 124 lb Weight 122 lb 6 oz Weight 123 lb 0.287 oz Physical Exam 2 Narrative: General : Patient is well developed , no acute distress, oriented x3 Head : Normal cephalic, a-traumatic. Ears : Pinnae and external canal are normal. Hearing is normal. Eyes : PERRLA, Sclera and injection are normal. No conjunctival discharge. Nose : Mucous membranes are without erythema. Throat : buccal mucosa is normal, gums are without significant recession or hypertrophy. Lungs : Equal chest rise bilaterally, no use of accessory muscles, trachea is midline. Cor : Rate and rhythm are normal. Abdomen : Soft, ND, right-sided abdominal tenderness, no g/r/m Extremities : No edema, no cyanosis or clubbing, dorsalis pedis pulses are present bilaterally, non-tender to palpation of calves. Upper extremities are normal bilaterally. Back : non-tender to palpation, no CVA tenderness. Neuro : CN II - XII intact, Upper and lower extremities have equal and full strength Data 02/15/24 03:31 02/15/24 03:31 A&P Assessment and plan (1) Abdominal pain: Qualifiers: Abdominal location: left upper quadrant Qualified Code(s): R10.12 - Left upper quadrant pain (2) Small bowel intussusception: Plan Her abdominal exam is not concerning to me Intussusception was likely transient Will reassess tomorrow for possible NG tube removal and starting of clear liquid diet Medical management per hospitalist Coding Level of Care Code 98575 Diagnoses Abdominal pain R10.12 Abdominal location: left upper quadrant Small bowel intussusception K56.1
--- NOTE | 2024-02-13 12:52 | PC.NURSE ---
Noted order for NG tube pacement. Notified pt but pt is currently in dialysis. Will place once pt is out of HD.
[2024-02-13 13:00] LABS: Lactic Sepsis W/Reflex 0.9 mmol/L (0.5-2.2)
[2024-02-13 16:39] LABS: Glucose Point of Care 121 mg/dL (70-110)
--- NOTE | 2024-02-13 17:45 | XRR_ITS ---
PROCEDURE INFORMATION: Exam: XR Chest Exam date and time: 02/13/2024 5:53 PM Age: 38 years old Clinical indication: Device placement; Ng tube; Prior surgery; Surgery date: 6+ months; Surgery type: Stents/lobectomy/port; Additional info: Ng tube placement TECHNIQUE: Imaging protocol: Radiologic exam of the chest. Views: 1 view. COMPARISON: CR XR chest 1V portable [id number] 02/11/2024 10:14 AM FINDINGS: Tubes, catheters and devices: The NG tube tracks into the stomach and off the field of view. Right IJ approach central venous catheter positioned with its tip in the right atrium. Lungs: Unremarkable. No consolidation. Pleural spaces: Unremarkable. No pleural effusion. No pneumothorax. Heart/Mediastinum: Unremarkable. No cardiomegaly. Bones/joints: Unremarkable. XR/XR chest 1V portable [id number] IMPRESSION: 1. The NG tube tracks into the stomach and off the field of view. 2. Right IJ approach central venous catheter positioned with its tip in the right atrium. No pneumothorax.
--- NOTE | 2024-02-13 18:39 | PC.NURSE ---
This nurse took over care of patient around 1700. All medications from 1338-7411 were given and NG tube placed. Patient tolerated well. Placed on intermittent suction.
[2024-02-13 20:56] LABS: Glucose Point of Care 118 mg/dL (70-110)
[2024-02-13] MEDS: lisinopril 20 mg Tablet 40 MG PO (21:08)
[2024-02-13] MEDS: atorvastatin 40 mg Tablet PO (21:09)
[2024-02-14] VITALS (10 sets, daily range): BP systolic 129–164; BP diastolic 69–83; PULSE 66–73; RESP 12–18; TEMP 36.4–37.2; O2SAT 95–97
[2024-02-14] MEDS: morphine 4 mg/mL SDV 1 mL 2 MG IVP ×5 (01:06→20:20)
[2024-02-14 03:33] LABS: Basophils # 0.1 10^3/uL (0.0-0.1); Basophils % 0.9 %; Eosinophils # 0.3 10^3/uL (0.0-0.8); Eosinophils % 4.6 %; Hematocrit 35.2 % (36-47); Lymphocytes # 1.7 10^3/uL (0.8-4.8); Lymphocytes % 30.4 %; Mean Corpuscular Hemoglobin 28.4 pg (27-33); Mean Corpuscular Volume 86.1 fl (85-98); Mean Platelet Volume 9.5 fL (7.4-10.4); Monocytes # 0.5 10^3/uL (0.2-0.9); Monocytes % 9.3 %; Neutrophils % 54.6 %; Nucleated Red Blood Cells % 0 %; Platelet Count 168 10^3/cmm (157-399); Red Blood Count 4.09 10^6/uL (3.85-5.65); Red Cell Distribution Width 14.1 % (12.1-15.1); White Blood Count 5.49 10^3/uL (3.29-11.43)
[2024-02-14 03:57] LABS: Anion Gap 18.3 (5-19); Blood Urea Nitrogen 22 mg/dL (6-20); Calcium 8.9 mg/dL (8.5-10.5); Carbon Dioxide 23 mmol/L (22-29); Chloride 101 mmol/L (98-107); Glomerular Filtration Rate 14.7 mL/min (90-130); Glucose 93 mg/dL (65-115); Osmolality Calculated 289 mOsm/kg (285-295); Potassium 4.3 mmol/L (3.5-5.1); Sodium 138 mmol/L (136-145)
[2024-02-14] MEDS: heparin 5,000 unit/mL INJ 1 mL 5000 UNIT SUBCUT ×2 (05:11→17:48)
[2024-02-14] MEDS: aspirin 81 mg EC Tablet PO (05:11)
[2024-02-14 06:35] LABS: Glucose Point of Care 107 mg/dL (70-110)
--- NOTE | 2024-02-14 07:51 | PM.PN ---
Subjective Subjective: Patient denies chest pain. Has abdominal discomfort. Vitals/I&O/Wt Last Vital Signs Temp 97.5 F L 02/14/24 07:26 Pulse 72 02/14/24 07:26 Resp 18 02/14/24 07:26 BP 164/83 02/14/24 07:26 Pulse Ox 96 02/14/24 07:26 O2 Del Method Room Air 02/14/24 07:26 02/13/24 02/14/24 02/14/24 22:59 06:59 14:59 Intake Total 500 / 740 Output Total 2808 / 2808 Balance -2308 / -2068 Weight last 48 hrs Weight 122 lb 6 oz Weight 123 lb 0.287 oz Weight 131 lb 3.2 oz Physical Exam Narrative: GENERAL: Patient is alert, awake and oriented x3. [] NECK: No jugular vein distension. [] HEENT: No cyanosis. No icterus. No pallor. [] HEART: Regular S1 and S2. No murmur, rub or gallop. [] LUNGS: Clear to auscultate bilaterally. [] CENTRAL NERVOUS SYSTEM: Grossly nonfocal. [] EXTREMITIES: Lower extremities with 1+ edema bilaterally. Data 02/15/24 03:31 02/15/24 03:31 A&P Assessment and plan (1) Chest pain: (2) Accelerated hypertension: (3) CAD (coronary artery disease): (4) Hyperlipidemia: Qualifiers: Hyperlipidemia type: mixed hyperlipidemia Qualified Code(s): E78.2 - Mixed hyperlipidemia (5) HTN (hypertension): Qualifiers: Hypertension type: primary hypertension Qualified Code(s): I10 - Essential (primary) hypertension Plan Patient is stable from cardiac standpoint. Continue current medications. She is found to have small bowel intussusception. Management from primary and surgical teams. Thank you for involving us with care of this patient. We will continue to follow. Please call with questions. Attestations Medical Necessity Statement*: Care expected to cross 2 midnights. Coding Level of Care Code Acute Code for [facility] Diagnoses Chest pain R07.9 Accelerated hypertension I10 CAD (coronary artery disease) I25.10 Mixed hyperlipidemia E78.2 Hyperlipidemia type: mixed hyperlipidemia Primary hypertension I10 Hypertension type: primary hypertension
--- NOTE | 2024-02-14 08:46 | P.PN_ITS ---
Subjective 2 Subjective: Patient seen and examined. She reports that she is passing minimal flatus. Still reporting abdominal pain Vitals/I&O/Wt Last Vital Signs Temp 98.0 F 02/15/24 07:23 Pulse 71 02/15/24 07:44 Resp 16 02/15/24 07:44 BP 169/79 02/15/24 07:23 Pulse Ox 97 02/15/24 07:44 O2 Del Method Room Air 02/15/24 07:44 02/14/24 02/15/24 02/15/24 22:59 06:59 14:59 Intake Total 0 960 / 1989 Output Total 400 / 1250 200 / 200 Balance -370 / -220 960 / 740 -200 / -200 Weight last 48 hrs Weight 124 lb Weight 122 lb 6 oz Weight 123 lb 0.287 oz Physical Exam 2 Narrative: General: No acute distress, awake alert and oriented x 3 Abdomen: Soft, nondistended, mild right-sided abdominal tenderness Data 02/15/24 03:31 02/15/24 03:31 A&P Assessment and plan (1) Abdominal pain: Qualifiers: Abdominal location: left upper quadrant Qualified Code(s): R10.12 - Left upper quadrant pain (2) Small bowel intussusception: Plan Repeat CT of abdomen pelvis with contrast to check for persistent intussusception Will reassess tomorrow for possible NG tube removal and starting of clear liquid diet to continued symptoms Medical management per hospitalist Attestations 2 Medical Necessity Statement*: Primary Coding Level of Care Code 53740 Diagnoses Abdominal pain R10.12 Abdominal location: left upper quadrant Small bowel intussusception K56.1
--- NOTE | 2024-02-14 10:05 | CTR_ITS ---
PROCEDURE INFORMATION: Exam: CT Abdomen And Pelvis With Contrast Exam date and time: 02/14/2024 3:57 PM Age: 38 years old Clinical indication: Abdominal tenderness and nausea and vomiting; Prior surgery; Surgery date: 6+ months; Surgery type: Gb; Additional info: Intususseption, iv contrast TECHNIQUE: Imaging protocol: Computed tomography of the abdomen and pelvis with contrast. Radiation optimization: All CT scans at this facility use at least one of these dose optimization techniques: automated exposure control; mA and/or kV adjustment per patient size (includes targeted exams where dose is matched to clinical indication); or iterative reconstruction. Contrast material: OMNIPAQUE 350; Contrast volume: 100 ml; Contrast route: INTRAVENOUS (IV); COMPARISON: CT angio abdomen pelvis [id number] 02/12/2024 10:58 PM RADIATION DOSE METRICS: Total DLP (mGy-cm): 369.19 FINDINGS: Lungs: Hypodensity within a right lower lobe segmental pulmonary arterial branch, favored to be secondary to technique and motion degradation (image 1 of series 3). If there is clinical concern for PE, consider correlation with CT angiography. Diaphragm: No evidence of diaphragmatic defect. Liver: No focal hepatic lesion. Gallbladder and biliary ducts: Status post cholecystectomy. Mild central intrahepatic biliary dilatation. There is mild extrahepatic biliary dilatation, frequently seen post cholecystectomy. CBD measures up to 10 mm. No evidence of intraductal stone. Pancreas: Moderately atrophic. Otherwise grossly unremarkable. Spleen: Unremarkable. Adrenal glands: Unremarkable. Kidneys and ureters: Left renal parenchymal scarring. There are foci of parenchymal hypoenhancement on the left, which may reflect sequela of chronic infection/scarring as well. Otherwise no renal parenchymal abnormality. No hydronephrosis or ureteral stone. Stomach and bowel: Enteric tube in place with tip in the gastric body. No evidence of bowel obstruction or perienteric inflammatory changes. Appendix: Normal appendix. Intraperitoneal space: No evidence of free air or fluid collection. Vasculature: Laz A3 The celiac trunk, SMA and INNA are grossly patent. No evidence of IVC thrombus. The portal vein, SMV and splenic veins are grossly patent. Lymph nodes: No adina adenopathy. There are few prominent and borderline enlarged posterior mediastinal nodes in the lower chest in the left para-aortic region measuring up to 8 mm short axis, possibly reactive (image 3 of series 3). Urinary bladder: Excreted contrast within the bladder. Otherwise grossly unremarkable. Reproductive: Grossly unremarkable. Bones/joints: No evidence of acute fracture or aggressive osseous lesion. Chronic L5 pars defects. Soft tissues: Superficial soft tissue edema without evidence of fluid collection or hematoma in the superficial soft tissues. CT/CT abdomen pelvis w con* [id number] IMPRESSION: 1. No evidence of acute abnormality in the abdomen or pelvis. 2. Left renal parenchymal scarring, possibly secondary to prior bouts of infection. There are foci of parenchymal hypoenhancement, which may reflect chronic scarring as well. Consider correlation with serum laboratory findings and urinalysis to exclude ongoing infection/pyelonephritis. 3. Hypodensity within a right lower lobe segmental pulmonary arterial branch, favored to be secondary to technique and motion degradation (image 1 of series 3). If there is clinical concern for PE, consider correlation with CT angiography.
[2024-02-14] MEDS: escitalopram 10 mg Tablet PO (10:08)
[2024-02-14] MEDS: carvedilol 25 mg Tablet PO ×2 (10:08→17:48)
[2024-02-14] MEDS: pantoprazole DR 40 mg Tablet PO (10:08)
[2024-02-14] MEDS: amlodipine 10 mg Tablet PO (10:08)
[2024-02-14] MEDS: gabapentin 100 mg Capsule PO ×3 (10:08→21:32)
[2024-02-14] MEDS: hyDRALAzine 50 mg Tablet PO ×3 (10:08→21:33)
[2024-02-14] MEDS: sodium chloride 0.9% 1,000 ML 50 ML IV (10:09)
[2024-02-14] MEDS: ticagrelor 90 mg Tablet PO ×2 (10:09→17:48)
--- NOTE | 2024-02-14 10:16 | PC.SOCIAL ---
IMM Update pg 2 of IMM updated and reviewed w/ patient. Copy provided, copy dated, initialed and placed in chart.
[2024-02-14 11:41] LABS: Glucose Point of Care 110 mg/dL (70-110)
--- NOTE | 2024-02-14 13:47 | P.PN_ITS ---
Subjective 2 Subjective: has NGT Medications: Reviewed: Yes Vitals/I&O/Wt Last Vital Signs Temp 98.0 F 02/14/24 11:45 Pulse 68 02/14/24 11:45 Resp 18 02/14/24 11:45 BP 129/69 02/14/24 11:45 Pulse Ox 97 02/14/24 11:45 O2 Del Method Room Air 02/14/24 11:45 02/13/24 02/14/24 02/14/24 22:59 06:59 14:59 Intake Total 500 / 740 1000 / 1000 Output Total 2808 / 2808 850 / 850 Balance -2308 / -2068 150 / 150 Weight last 48 hrs Weight 55.508 kg Weight 55.8 kg Weight 59.511 kg Physical Exam 2 Narrative: Awake alert, no distress HEENT S1-S2 regular rate and rhythm. lungs clear no edema Data 02/14/24 02:50 02/14/24 02:50 A&P Assessment and plan (1) End stage renal disease on dialysis: 1. End-stage renal disease: HD per TTS schedule, HD tomorrow , and ultrafiltration as tolerated 2. Chest pain: Patient is followed by cardiology. Patient does have a known history of coronary artery disease with stents. 3. Accelerated hypertension: Resumed home medications, she was briefly on Cardene drip which is currently off 4. Anemia: Hemoglobin at goal continue to monitor 5. Diabetes Patient evaluated using audiovisual cart. Time spent 40 minutes. Attestations 2 Medical Necessity Statement*: per medicine Coding Level of Care Code Acute Code for [facility] Diagnoses End stage renal disease on dialysis N18.6; Z99.2
[2024-02-14] MEDS: metoclopramide 5 mg/mL SDV 2 mL IVP (15:40)
--- NOTE | 2024-02-14 15:55 | PM.PN ---
Subjective Subjective: Patient was seen this morning, NG tube in place has bilious NG tube output, currently her abdominal pain is minimal, no fevers, no chills continues to complain of abdominal pain, she tells her that she has not passed any gas, has not had a bowel movement, Vitals/I&O/Wt Last Vital Signs Temp 98.0 F 02/14/24 11:45 Pulse 68 02/14/24 11:45 Resp 18 02/14/24 11:45 BP 129/69 02/14/24 11:45 Pulse Ox 97 02/14/24 11:45 O2 Del Method Room Air 02/14/24 11:45 02/14/24 02/14/24 02/14/24 06:59 14:59 22:59 Intake Total 1000 / 1000 Output Total 850 / 850 Balance 150 / 150 Weight last 48 hrs Weight 55.508 kg Weight 55.8 kg Weight 59.511 kg Physical Exam Const: COMMON NORMALS: no acute distress and patient oriented x3 Resp: COMMON NORMALS: normal respiratory effort, No retractions, No use of accessory muscles and clear to auscultation bilaterally AUSCULTATION: clear to auscultation bilaterally Cardio: COMMON NORMALS: regular rate, regular rhythm, S1 normal heart sound present and S2 normal heart sound present RATE: regular rate RHYTHM: regular rhythm HEART SOUNDS: S1 normal heart sound present and S2 normal heart sound present GI: OTHER: Abdomen soft, slightly distended, good bowel sounds in all 4 quadrants, no significant guarding, no rebound, no rigidity, does have diffuse tenderness in all 4 quadrants Extremity: COMMON NORMALS: no pedal edema Neuro: COMMON NORMALS: patient oriented x3 Psych: COMMON NORMALS: mental status grossly normal Data 02/14/24 02:50 02/14/24 02:50 A&P Assessment and plan (1) Chest pain: - cardiac echo CONCLUSIONS Limited echocardiogram performed to assess LV systolic function. LV systolic function is normal with EF 55 to 60%. No regional wall motion abnormalities are seen. -Coreg dose increased -Monitor for chest pain -Monitor clinical status -Telemetry monitoring -Plan on medical management (2) Atherosclerotic heart disease of [place] coronary artery with other forms of angina pectoris: Same as above. Chronically on aspirin, antiplatelet therapy, statin, beta-blockade and RADHA inhibitor. (3) Accelerated hypertension: -Off Cardene drip -Coreg increased to 25 mg twice daily (4) Hyperlipidemia: Chronically on statin therapy Qualifiers: Hyperlipidemia type: mixed hyperlipidemia Qualified Code(s): E78.2 - Mixed hyperlipidemia (5) Diabetes mellitus: Continue insulin therapy Qualifiers: Diabetes mellitus complication detail: with other circulatory complications Diabetes mellitus complication status: with circulatory complication Diabetes mellitus type: type 1 Qualified Code(s): E10.59 - Type 1 diabetes mellitus with other circulatory complications (6) End stage renal disease on dialysis: Dialysis on Tuesdays, and Saturdays. Missed today due to chest pain as dialysis clinic sent her here. Current labs are consistent with intended dialysis day. (7) Small bowel intussusception: CTA abdomen CT/CT angio abdomen pelvis [id number] IMPRESSION: 1. No aortic dissection. No aortic aneurysm. 2. There is a small bowel-small bowel intussusception in the left mid abdomen best seen images 98 through 113. No definite lead point. Finding may be transient. Repeat examination is recommended. No evidence of ischemic bowel. PLAN: -Repeat CT scan this morning -N.p.o. -Gentle IV hydration -Nausea control, Zofran, Reglan -Serial abdominal exams -NG tube placed -Spoke to general surgery, Dr. Caceres, will consult Plan Insulin for diabetes control Continue home aspirin, statin, beta-blockade Continue home lisinopril Continue home escitalopram Continue home gabapentin Continue home sevelamer Nonpharmacologic options for musculoskeletal pain VTE prophylaxis: heparin GI Prophylaxis: PPI Antibiotics: none Pending studies: cardiac enzymes, morning labs Telemetry: ordered due to cardiac issues Sanders: not currently indicated Line(s): peripheral IVs plus HD catheter Disposition plan: Home with outpatient follow up anticipated Code Status: Full Code Plan for today repeat CT scan, monitor for recurrent abdominal pain, serial abdominal exams Attestations Medical Necessity Statement*: Patient requires hospitalization for small bowel intussusception Diagnoses Chest pain R07.9 Atherosclerotic heart disease of [place] coronary artery with other forms of angina pectoris I25.118 Accelerated hypertension I10 Mixed hyperlipidemia E78.2 Hyperlipidemia type: mixed hyperlipidemia Type 1 diabetes mellitus with other circulatory complication E10.59 Diabetes mellitus complication detail: with other circulatory complications Diabetes mellitus complication status: with circulatory complication Diabetes mellitus type: type 1 End stage renal disease on dialysis N18.6; Z99.2 Small bowel intussusception K56.1
[2024-02-14] MEDS: phenol oral Spray 177 mL 3 SPRAY MUCOUS MEM (16:40)
[2024-02-14 17:06] LABS: Glucose Point of Care 94 mg/dL (70-110)
[2024-02-14 20:54] LABS: Glucose Point of Care 86 mg/dL (70-110)
[2024-02-14] MEDS: atorvastatin 40 mg Tablet PO (21:32)
[2024-02-14] MEDS: sevelamer 800 mg Tablet PO (21:32)
[2024-02-14] MEDS: lisinopril 20 mg Tablet 40 MG PO (21:32)
[2024-02-15] VITALS (13 sets, daily range): BP systolic 133–170; BP diastolic 72–93; PULSE 63–71; RESP 12–19; TEMP 36.6–37.6; O2SAT 95–99
[2024-02-15] MEDS: morphine 4 mg/mL SDV 1 mL 2 MG IVP ×5 (01:37→20:44)
[2024-02-15 04:12] LABS: Basophils # 0.1 10^3/uL (0.0-0.1); Basophils % 0.7 %; Eosinophils # 0.1 10^3/uL (0.0-0.8); Eosinophils % 1.6 %; Hematocrit 34.7 % (36-47); Lymphocytes # 1.5 10^3/uL (0.8-4.8); Lymphocytes % 18.1 %; Mean Corpuscular Volume 87.6 fl (85-98); Mean Platelet Volume 9.3 fL (7.4-10.4); Monocytes # 0.8 10^3/uL (0.2-0.9); Monocytes % 9.4 %; Neutrophils # 5.95 10^3/uL (1.8-7.7); Nucleated Red Blood Cells % 0 %; Platelet Count 156 10^3/cmm (157-399); Red Blood Count 3.96 10^6/uL (3.85-5.65); Red Cell Distribution Width 14.1 % (12.1-15.1); White Blood Count 8.51 10^3/uL (3.29-11.43)
[2024-02-15 04:52] LABS: Anion Gap 23.3 (5-19); Blood Urea Nitrogen 34 mg/dL (6-20); Calcium 8.5 mg/dL (8.5-10.5); Carbon Dioxide 18 mmol/L (22-29); Chloride 100 mmol/L (98-107); Creatinine Clr Calc Pharmacy 11.2135; Glomerular Filtration Rate 8.9 mL/min (90-130); Glucose 82 mg/dL (65-115); Osmolality Calculated 291 mOsm/kg (285-295); Potassium 4.3 mmol/L (3.5-5.1); Sodium 137 mmol/L (136-145)
[2024-02-15] MEDS: heparin 5,000 unit/mL INJ 1 mL 5000 UNIT SUBCUT ×2 (05:19→17:25)
[2024-02-15] MEDS: sodium chloride 0.9% 1,000 ML 50 ML IV (05:21)
[2024-02-15] MEDS: phenol oral Spray 177 mL 3 SPRAY MUCOUS MEM (05:21)
[2024-02-15 06:46] LABS: Glucose Point of Care 91 mg/dL (70-110)
--- NOTE | 2024-02-15 08:07 | P.PN_ITS ---
Subjective 2 Subjective: No chest pain. Still has abdominal discomfort. Vitals/I&O/Wt Last Vital Signs Temp 98.0 F 02/15/24 07:23 Pulse 71 02/15/24 07:44 Resp 16 02/15/24 07:44 BP 169/79 02/15/24 07:23 Pulse Ox 97 02/15/24 07:44 O2 Del Method Room Air 02/15/24 07:44 02/14/24 02/15/24 02/15/24 22:59 06:59 14:59 Intake Total 30 / 1030 960 / 1990 Output Total 400 / 1250 200 / 200 Balance -370 / -220 960 / 740 -200 / -200 Weight last 48 hrs Weight 124 lb Weight 122 lb 6 oz Weight 123 lb 0.287 oz Physical Exam 2 Narrative: GENERAL: Patient is alert, awake and oriented x3. [] NECK: No jugular vein distension. [] HEENT: No cyanosis. No icterus. No pallor. [] HEART: Regular S1 and S2. No murmur, rub or gallop. [] LUNGS: Clear to auscultate bilaterally. [] CENTRAL NERVOUS SYSTEM: Grossly nonfocal. [] EXTREMITIES: Lower extremities with 1+ edema bilaterally. Data 02/15/24 03:31 02/15/24 03:31 A&P Assessment and plan (1) Chest pain: (2) Accelerated hypertension: (3) CAD (coronary artery disease): (4) Hyperlipidemia: Qualifiers: Hyperlipidemia type: mixed hyperlipidemia Qualified Code(s): E78.2 - Mixed hyperlipidemia (5) HTN (hypertension): Qualifiers: Hypertension type: primary hypertension Qualified Code(s): I10 - Essential (primary) hypertension Plan Doing well from cardiac standpoint. Small bowel of intussusception management per primary team and surgical team. Continue dual antiplatelet therapy as has recent stents Thank you for involving us with care of this patient. We will continue to follow. Please call with questions. Attestations 2 Medical Necessity Statement*: Care expected to cross 2 midnights. Coding Level of Care Code Acute Code for [facility] Fwd Diagnoses Chest pain R07.9 Accelerated hypertension I10 CAD (coronary artery disease) I25.10 Mixed hyperlipidemia E78.2 Hyperlipidemia type: mixed hyperlipidemia Primary hypertension I10 Hypertension type: primary hypertension
[2024-02-15] MEDS: ticagrelor 90 mg Tablet PO ×2 (08:12→17:25)
[2024-02-15] MEDS: hyDRALAzine 50 mg Tablet PO ×3 (08:12→20:43)
[2024-02-15] MEDS: sevelamer 800 mg Tablet PO (08:12)
[2024-02-15] MEDS: carvedilol 25 mg Tablet PO ×2 (08:12→17:25)
[2024-02-15] MEDS: pantoprazole DR 40 mg Tablet PO (08:13)
[2024-02-15] MEDS: escitalopram 10 mg Tablet PO (08:13)
[2024-02-15] MEDS: amlodipine 10 mg Tablet PO (08:13)
[2024-02-15] MEDS: gabapentin 100 mg Capsule PO ×3 (08:13→20:43)
[2024-02-15] MEDS: ondansetron 2 mg/ML SDV 2 mL 4 MG IVP (10:05)
[2024-02-15] MEDS: heparin, porcine 1,000 unit/mL INJ 10 mL 10000 UNIT HE (10:30)
--- NOTE | 2024-02-15 10:38 | P.PN_ITS ---
Subjective 2 Subjective: Patient seen and examined. Still continues to report abdominal pain and nausea Vitals/I&O/Wt Last Vital Signs Temp 98.2 F 02/16/24 07:22 Pulse 59 L 02/16/24 07:43 Resp 20 H 02/16/24 09:36 BP 129/71 02/16/24 07:22 Pulse Ox 95 02/16/24 07:43 O2 Del Method Room Air 02/16/24 07:43 02/15/24 02/16/24 02/16/24 22:59 06:59 14:59 Intake Total 620 / 620 1000 / 1620 Output Total 2650 / 3150 Balance -2030 / -2530 1000 / -1530 Weight last 48 hrs Weight 117 lb 8 oz Weight 257 lb 15.053 oz Weight 124 lb Physical Exam 2 Narrative: General: No acute distress, awake alert and oriented x 3 Abdomen: Soft, nontender, nondistended Data 02/16/24 04:32 02/16/24 04:32 A&P Assessment and plan (1) Abdominal pain: Qualifiers: Abdominal location: left upper quadrant Qualified Code(s): R10.12 - Left upper quadrant pain (2) Small bowel intussusception: Plan I cannot rule out malingering Repeat CT did not show intussusception NG tube was not hooked up to suction. I have rehooked it up. I will reassess this afternoon to see how much is come out to possibly start her on a diet Medical management per hospitalist Attestations 2 Medical Necessity Statement*: Per primary Coding Level of Care Code 60915 Diagnoses Abdominal pain R10.12 Abdominal location: left upper quadrant Small bowel intussusception K56.1
--- NOTE | 2024-02-15 11:22 | P.PN_ITS ---
Subjective 2 Subjective: getting HD Medications: Reviewed: Yes Vitals/I&O/Wt Last Vital Signs Temp 98.0 F 02/15/24 07:23 Pulse 71 02/15/24 07:44 Resp 16 02/15/24 07:44 BP 169/79 02/15/24 07:23 Pulse Ox 97 02/15/24 07:44 O2 Del Method Room Air 02/15/24 07:44 02/14/24 02/15/24 02/15/24 22:59 06:59 14:59 Intake Total / 1030 960 / 1989 Output Total 400 / 1250 500 / 500 Balance -370 / -220 960 / 740 -500 / -500 Weight last 48 hrs Weight 56.245 kg Weight 55.508 kg Weight 55.8 kg Physical Exam 2 Narrative: Awake alert, no distress HEENT S1-S2 regular rate and rhythm. lungs clear no edema Data 02/15/24 03:31 02/15/24 03:31 A&P Assessment and plan (1) End stage renal disease on dialysis: 1. End-stage renal disease: HD per TTS schedule, HD today , and ultrafiltration as tolerated 2. Chest pain: Patient is followed by cardiology. Patient does have a known history of coronary artery disease with stents. 3. Accelerated hypertension: Resumed home medications, she was briefly on Cardene drip which is currently off 4. Anemia: Hemoglobin at goal continue to monitor 5. Diabetes 6. Small bowel intussusception:mx per gen sx Patient evaluated using audiovisual cart. Time spent 40 minutes. Attestations 2 Medical Necessity Statement*: per wilson Coding Level of Care Code Acute Code for [facility] Fwd Diagnoses End stage renal disease on dialysis N18.6; Z99.2
[2024-02-15 11:32] LABS: Glucose Point of Care 90 mg/dL (70-110)
[2024-02-15] MEDS: heparin, porcine 1,000 unit/mL INJ 10 mL 10000 UNIT INTRACATH (13:45)
[2024-02-15 16:22] LABS: Glucose Point of Care 92 mg/dL (70-110)
--- NOTE | 2024-02-15 16:40 | P.PN_ITS ---
Subjective 2 Subjective: Patient was seen this morning, she tells me that she is passing gas from below, has not had a bowel movement, nausea is under control, NG tube in place, no lightheadedness, dizziness, has not had a bowel movement, no fevers, no chills, her abdominal pain is more under control and minimal currently Vitals/I&O/Wt Last Vital Signs Temp 97.8 F 02/15/24 16:00 Pulse 68 02/15/24 16:00 Resp 14 02/15/24 16:00 BP 145/78 02/15/24 16:00 Pulse Ox 98 02/15/24 16:00 O2 Del Method Room Air 02/15/24 16:00 02/15/24 02/15/24 02/15/24 06:59 14:59 22:59 Intake Total 960 / 1990 500 / 500 Output Total 500 / 500 2650 / 3150 Balance 960 / 740 -500 / -500 -2150 / -2650 Weight last 48 hrs Weight 117 kg Weight 56.245 kg Weight 55.508 kg Physical Exam 2 Const: COMMON NORMALS: no acute distress and patient oriented x3 Resp: COMMON NORMALS: normal respiratory effort, No retractions, No use of accessory muscles and clear to auscultation bilaterally AUSCULTATION: clear to auscultation bilaterally Cardio: COMMON NORMALS: regular rate, regular rhythm, S1 normal heart sound present and S2 normal heart sound present RATE: regular rate RHYTHM: r egular rhythm HEART SOUNDS: S1 normal heart sound present and S2 normal heart sound present GI: OTHER: Abdomen soft, slightly distended, no guarding, rebound, rigidity, scattered bowel sounds Extremity: COMMON NORMALS: no pedal edema Neuro: COMMON NORMALS: patient oriented x3 Psych: COMMON NORMALS: mental status grossly normal Data 02/15/24 03:31 02/15/24 03:31 A&P Assessment and plan (1) Chest pain: - cardiac echo CONCLUSIONS Limited echocardiogram performed to assess LV systolic function. LV systolic function is normal with EF 55 to 60%. No regional wall motion abnormalities are seen. -Coreg dose increased -Monitor for chest pain -Monitor clinical status -Telemetry monitoring -Plan on medical management (2) Atherosclerotic heart disease of [place] coronary artery with other forms of angina pectoris: Same as above. Chronically on aspirin, antiplatelet therapy, statin, beta- blockade and RADHA inhibitor. (3) Accelerated hypertension: -Off Cardene drip -Coreg increased to 25 mg twice daily (4) Hyperlipidemia: Chronically on statin therapy Qualifiers: Hyperlipidemia type: mixed hyperlipidemia Qualified Code(s): E78.2 - Mixed hyperlipidemia (5) Diabetes mellitus: Continue insulin therapy Qualifiers: Diabetes mellitus complication detail: with other circulatory complications Diabetes mellitus complication status: with circulatory complication Diabetes mellitus type: type 1 Qualified Code(s): E10.59 - Type 1 diabetes mellitus with other circulatory complications (6) End stage renal disease on dialysis: Dialysis on Tuesdays, and Saturdays. Missed today due to chest pain as dialysis clinic sent her here. Current labs are consistent with intended dialysis day. (7) Small bowel intussusception: CTA abdomen CT/CT angio abdomen pelvis [id number] IMPRESSION: 1. No aortic dissection. No aortic aneurysm. 2. There is a small bowel-small bowel intussusception in the left mid abdomen best seen images 98 through 113. No definite lead point. Finding may be transient. Repeat examination is recommended. No evidence of ischemic bowel. - CT scan this morning CT/CT abdomen pelvis w con* [id number] IMPRESSION: 1. No evidence of acute abnormality in the abdomen or pelvis. 2. Left renal parenchymal scarring, possibly secondary to prior bouts of infection. There are foci of parenchymal hypoenhancement, which may reflect chronic scarring as well. Consider correlation with serum laboratory findings and urinalysis to exclude ongoing infection/pyelonephritis. PLAN: -N.p.o. -Gentle IV hydration -Nausea control, Zofran, Reglan -Serial abdominal exams -NG tube placed, 500 cc output -Spoke to general surgery, Dr. Caceres, will consult Plan Insulin for diabetes control Continue home aspirin, statin, beta-blockade Continue home lisinopril Continue home escitalopram Continue home gabapentin Continue home sevelamer Nonpharmacologic options for musculoskeletal pain VTE prophylaxis: heparin GI Prophylaxis: PPI Antibiotics: none Pending studies: cardiac enzymes, morning labs Telemetry: ordered due to cardiac issues Sanders: not currently indicated Line(s): peripheral IVs plus HD catheter Disposition plan: Home with outpatient follow up anticipated Code Status: Full Code Plan for today continue serial abdominal exams, NG tube in place, monitor of recurrent abdominal pain, will monitor closely with IV fluids, will receive dialysis today, she has had about 500 mL NG tube output, Attestations 2 Medical Necessity Statement*: Patient requires hospitalization, for small bowel intussusception, end-stage renal disease requiring hemodialysis, Diagnoses Chest pain R07.9 Atherosclerotic heart disease of [place] coronary artery with other forms of angina pectoris I25.118 Accelerated hypertension I10 Mixed hyperlipidemia E78.2 Hyperlipidemia type: mixed hyperlipidemia Type 1 diabetes mellitus with other circulatory complication E10.59 Diabetes mellitus complication detail: with other circulatory complications Diabetes mellitus complication status: with circulatory complication Diabetes mellitus type: type 1 End stage renal disease on dialysis N18.6; Z99.2 Small bowel intussusception K56.1
[2024-02-15] MEDS: lisinopril 20 mg Tablet 40 MG PO (20:43)
[2024-02-15] MEDS: atorvastatin 40 mg Tablet PO (20:44)
[2024-02-15 20:53] LABS: Glucose Point of Care 128 mg/dL (70-110)
[2024-02-16] VITALS (10 sets, daily range): BP systolic 115–129; BP diastolic 61–71; PULSE 57–63; RESP 15–20; TEMP 36.6–37; O2SAT 95–98
[2024-02-16] MEDS: morphine 4 mg/mL SDV 1 mL 2 MG IVP ×2 (03:32→09:36)
[2024-02-16 04:50] LABS: Basophils # 0.1 10^3/uL (0.0-0.1); Eosinophils # 0.3 10^3/uL (0.0-0.8); Eosinophils % 4.4 %; Lymphocytes # 1.5 10^3/uL (0.8-4.8); Lymphocytes % 21.7 %; Mean Corpuscular HGB Conc 31.2 g/dL (30-55); Mean Corpuscular Hemoglobin 27.8 pg (27-33); Mean Corpuscular Volume 89.2 fl (85-98); Mean Platelet Volume 9.8 fL (7.4-10.4); Monocytes # 0.8 10^3/uL (0.2-0.9); Monocytes % 11.3 %; Neutrophils # 4.31 10^3/uL (1.8-7.7); Neutrophils % 61.3 %; Nucleated Red Blood Cells % 0 %; Platelet Count 175 10^3/cmm (157-399); Red Blood Count 3.81 10^6/uL (3.85-5.65); Red Cell Distribution Width 14.2 % (12.1-15.1); White Blood Count 7.02 10^3/uL (3.29-11.43)
[2024-02-16 05:11] LABS: Blood Urea Nitrogen 20 mg/dL (6-20); Calcium 9.2 mg/dL (8.5-10.5); Carbon Dioxide 24 mmol/L (22-29); Chloride 100 mmol/L (98-107); Creatinine Clr Calc Pharmacy 14.7798; Glomerular Filtration Rate 12.6 mL/min (90-130); Glucose 140 mg/dL (65-115); Osmolality Calculated 289 mOsm/kg (285-295); Sodium 137 mmol/L (136-145)
[2024-02-16] MEDS: aspirin 81 mg EC Tablet PO (06:12)
[2024-02-16] MEDS: heparin 5,000 unit/mL INJ 1 mL 5000 UNIT SUBCUT (06:13)
[2024-02-16] MEDS: sodium chloride 0.9% 1,000 ML 50 ML IV (06:15)
[2024-02-16 06:38] LABS: Glucose Point of Care 145 mg/dL (70-110)
--- NOTE | 2024-02-16 09:06 | PM.PN ---
Subjective Subjective: Patient is chest pain free. Vitals/I&O/Wt Last Vital Signs Temp 98.2 F 02/16/24 07:22 Pulse 59 L 02/16/24 07:43 Resp 18 02/16/24 07:43 BP 129/71 02/16/24 07:22 Pulse Ox 95 02/16/24 07:43 O2 Del Method Room Air 02/16/24 07:43 02/15/24 02/16/24 02/16/24 22:59 06:59 14:59 Intake Total 620 / 620 1000 / 1620 Output Total 2650 / 3150 Balance -2030 / -2530 1000 / -1530 Weight last 48 hrs Weight 117 lb 8 oz Weight 257 lb 15.053 oz Weight 124 lb Physical Exam Narrative: GENERAL: Patient is alert, awake and oriented x3. [] NECK: No jugular vein distension. [] HEENT: No cyanosis. No icterus. No pallor. [] HEART: Regular S1 and S2. No murmur, rub or gallop. [] LUNGS: Clear to auscultate bilaterally. [] CENTRAL NERVOUS SYSTEM: Grossly nonfocal. [] EXTREMITIES: Lower extremities with 1+ edema bilaterally. Data 02/16/24 04:32 02/16/24 04:32 A&P Assessment and plan (1) Chest pain: (2) Accelerated hypertension: (3) CAD (coronary artery disease): (4) Hyperlipidemia: Qualifiers: Hyperlipidemia type: mixed hyperlipidemia Qualified Code(s): E78.2 - Mixed hyperlipidemia (5) HTN (hypertension): Qualifiers: Hypertension type: primary hypertension Qualified Code(s): I10 - Essential (primary) hypertension Plan Patient is stable from cardiac standpoint. We will continue with dual antiplatelet therapy. No change in cardiac meds. Thank you for involving us with care of this patient. Please call with questions. Attestations Medical Necessity Statement*: Care expected to cross 2 midnight. Coding Level of Care Code Acute Code for [facility] Diagnoses Chest pain R07.9 Accelerated hypertension I10 CAD (coronary artery disease) I25.10 Mixed hyperlipidemia E78.2 Hyperlipidemia type: mixed hyperlipidemia Primary hypertension I10 Hypertension type: primary hypertension
[2024-02-16] MEDS: metoclopramide 5 mg/mL SDV 2 mL IVP (09:29)
[2024-02-16] MEDS: amlodipine 10 mg Tablet PO (09:30)
[2024-02-16] MEDS: sevelamer 800 mg Tablet PO (09:30)
[2024-02-16] MEDS: gabapentin 100 mg Capsule PO (09:30)
[2024-02-16] MEDS: carvedilol 25 mg Tablet PO (09:31)
[2024-02-16] MEDS: hyDRALAzine 50 mg Tablet PO (09:31)
[2024-02-16] MEDS: escitalopram 10 mg Tablet PO (09:31)
[2024-02-16] MEDS: pantoprazole DR 40 mg Tablet PO (09:31)
[2024-02-16] MEDS: ticagrelor 90 mg Tablet PO (09:37)
--- NOTE | 2024-02-16 09:48 | P.PN_ITS ---
Subjective 2 Subjective: no new complaints Medications: Reviewed: Yes Vitals/I&O/Wt Last Vital Signs Temp 98.2 F 02/16/24 07:22 Pulse 59 L 02/16/24 07:43 Resp 20 H 02/16/24 09:36 BP 129/71 02/16/24 07:22 Pulse Ox 95 02/16/24 07:43 O2 Del Method Room Air 02/16/24 07:43 02/15/24 02/16/24 02/16/24 22:59 06:59 14:59 Intake Total 620 / 620 1000 / 1620 Output Total 2650 / 3150 Balance -2030 / -2530 1000 / -1530 Weight last 48 hrs Weight 53.297 kg Weight 117 kg Weight 56.245 kg Physical Exam 2 Narrative: Awake alert, no distress HEENT S1-S2 regular rate and rhythm. lungs clear no edema Data 02/16/24 04:32 02/16/24 04:32 A&P Assessment and plan (1) End stage renal disease on dialysis: 1. End-stage renal disease: HD per TTS schedule, HD yesterday , 2. Chest pain: Patient is followed by cardiology. Patient does have a known history of coronary artery disease with stents. 3. Accelerated hypertension: Resumed home medications, she was briefly on Cardene drip which is currently off 4. Anemia: Hemoglobin at goal continue to monitor 5. Diabetes 6. Small bowel intussusception:mx per gen sx , NGT removed Patient evaluated using audiovisual cart. Time spent 40 minutes. Attestations 2 Medical Necessity Statement*: per medicine Coding Level of Care Code Acute Code for [facility] Fwd Diagnoses End stage renal disease on dialysis N18.6; Z99.2
--- NOTE | 2024-02-16 10:29 | XRR_ITS ---
PROCEDURE INFORMATION: Exam: XR Abdomen Exam date and time: 02/16/2024 11:17 AM Age: 38 years old Clinical indication: Abdominal pain; Prior surgery; Surgery date: 6+ months; Surgery type: Cholecystectomy; Additional info: Adbominal distention TECHNIQUE: Imaging protocol: Radiologic exam of the abdomen. Views: Frontal supine view of the abdomen. 1 View. COMPARISON: CT abdomen pelvis w con* [id number] 02/14/2024 3:57 PM FINDINGS: Gastrointestinal tract: Oral contrast is noted in the colon. No evidence of small bowel obstruction. Intraperitoneal space: No gross free intraperitoneal air. Organs: Status post cholecystectomy. Probable excreted contrast in the bladder. Bones/joints: No gross acute fracture. XR/XR KUB portable [id number] IMPRESSION: No evidence of small bowel obstruction.
--- NOTE | 2024-02-16 10:39 | P.DS_ITS ---
Discharge Providers Date of Admission: 02/12/24 09:37 Date of Discharge: February 16, 2024 Attending Provider at Admission: Debbie Morse MD Attending Provider at Discharge: Shola Carrera MD Primary Care Provider: SUZANNE Dias Diagnoses at Discharge Discharge Diagnosis (1) End stage renal disease on dialysis: Status: Chronic Reason for Visit Reason for Visit: chest pain Hospital Course Hospital Course Donita Aguilar is a 38 year old female who presented to the emergency room from dialysis clinic with a chief complaint of chest pain. She has a complex cardiac history. Last cardiac catheterization was in November of this year revealing severe mid LAD stenosis. She underwent successful revascularization with 1 stent at that time. In December she had stress testing performed because of ongoing chest pain. She had a stress test in December because of ongoing chest pain. That showed small to medium sized areas of prior infarction with minimal nina-infarct ischemia in the left circumflex artery territory. Recommendations were management with Imdur, continued aspirin, Brilinta, and follow-up with cardiology. She has not seen cardiology since that time indicating that an appointment was canceled and she has not had a chance to reschedule it yet. She has had a change in insurance coverage and says that Brilinta was not covered by her insurance and she resumed Plavix. She is not on Imdur for the same reasons. Her chest pain woke her up from sleep and was severe at a 9-10 out of 10 with associated symptoms. She had no relief with nitroglycerin at home though did note some improvement with her blood pressure medications. She attempted to go to dialysis today but pain was continuing and she was referred to the emergency room. She describes pain going up into her left shoulder and upper back and down her left arm. She had some nausea and associated shortness of breath. On arrival to the emergency room pain was had a 9 or 10. At best, her chest pain will get no lower than a 2/10. This pain is similar to what she had prior to stent placement. EKG without acute ST segment elevation. Baseline troponin was 297 similar to her prior values. 2-hour troponin was trending downward at 277. At the current time chest pain is approaching an 8. She was significantly hypertensive upon arrival with blood pressures 210s over 120s. She was started on a nicardipine drip which has been trended downward. She did not miss any medications today. Not having vomiting today. Abdominal pain better. There were concerns about gastroparesis last hospital stay and she was referred to oncology for retroperitoneal lymphadenopathy. She is being admitted to hospital service for further evaluation and treatment with continued pain and degree of hypertension combined with comorbid conditions. She did not receive dialysis today. She is being admitted to hospitalist service. Patient was admitted to [facility] for chest pain, cardiology was consulted, cardiac echo EF is 55 to 60%, no gross wall motion abnormalities, medically managed, overall no recurrent chest pain, will be discharged on aspirin, statin, Brilinta, Coreg, with close follow-up cardiology as outpatient Patient's hospitalization was complicated with small bowel intussusception, general surgery was consulted, medically managed NG tube placed IV hydration bowel rest, overall patient's clinical condition improved, repeat CT scan shows no recurrent radiographic evidence of small bowel intussusception, NG tube removed, diet was transition, overall patient clinically improved, discharged with close follow-up with primary care and general surgery as outpatient. Patient was advised if she were to have any recurrent chest pain to go to emergency room Physical Exam Const: COMMON NORMALS: no acute distress and patient oriented x3 Resp: COMMON NORMALS: normal respiratory effort, No retractions, No use of accessory muscles and clear to auscultation bilaterally AUSCULTATION: clear to auscultation bilaterally Cardio: COMMON NORMALS: regular rate, regular rhythm, S1 normal heart sound present and S2 normal heart sound present RATE: regular rate RHYTHM: regular rhythm HEART SOUNDS: S1 normal heart sound present and S2 normal heart sound present GI: COMMON NORMALS: Normal to inspection, nondistended, normoactive bowel sounds present and non-tender Extremity: COMMON NORMALS: no pedal edema Neuro: COMMON NORMALS: patient oriented x3 Psych: COMMON NORMALS: mental status grossly normal Discharge Data Studies Completed and Pending Completed Studies During Hospitalization Category Date Time Status CT abdomen pelvis w con* [id number] Stat Cat Scan 02/14/24 10:05 Completed CTA abdomen pelvis [CT angio abdomen pelvis [id number]] Stat Cat Scan 02/12/24 22:27 Completed CXRP [XR chest 1V portable [id number]] Stat Exams 02/13/24 17:45 Completed XR KUB portable [id number] Stat Exams 02/13/24 10:49 Completed XR chest 1V portable [id number] Stat Exams 02/11/24 10:07 Completed US echo limited [CV. echo limited [id number]] Routine Ultrasound 02/12/24 09:23 Completed Pending at discharge Category Date Time Status XR KUB portable [id number] Stat Exams 02/16/24 10:29 Ordered Radiology Impressions Abdomen/Pelvis CTA 02/12/24 22:27 IMPRESSION: 1. No aortic dissection. No aortic aneurysm. 2. There is a small bowel-small bowel intussusception in the left mid abdomen best seen images 98 through 113. No definite lead point. Finding may be transient. Repeat examination is recommended. No evidence of ischemic bowel. KUB X-Ray 02/13/24 10:49 Impression: Mild generalized ileus. Chest X-Ray 02/13/24 17:45 IMPRESSION: 1. The NG tube tracks into the stomach and off the field of view. 2. Right IJ approach central venous catheter positioned with its tip in the right atrium. No pneumothorax. Abdomen/Pelvis CT 02/14/24 10:05 IMPRESSION: 1. No evidence of acute abnormality in the abdomen or pelvis. 2. Left renal parenchymal scarring, possibly secondary to prior bouts of infection. There are foci of parenchymal hypoenhancement, which may reflect chronic scarring as well. Consider correlation with serum laboratory findings and urinalysis to exclude ongoing infection/pyelonephritis. 3. Hypodensity within a right lower lobe segmental pulmonary arterial branch, favored to be secondary to technique and motion degradation (image 1 of series 3). If there is clinical concern for PE, consider correlation with CT angiography. Laboratory Results WBC 7.02 10^3/uL (3.29-11.43) 02/16/24 04:32 Corrected WBC Cancelled 02/12/24 22:42 RBC 3.81 10^6/uL (3.85-5.65) L 02/16/24 04:32 Hgb 10.60 g/dL (11.27-16.99) L 02/16/24 04:32 Hct 34.0 % (36-47) L 02/16/24 04:32 MCV 89.2 fl (85-98) 02/16/24 04:32 MCH 27.8 pg (27-33) 02/16/24 04:32 MCHC 31.2 g/dL (30-55) 02/16/24 04:32 RDW 14.2 % (12.1-15.1) 02/16/24 04:32 Plt Count 175 10^3/cmm (157-399) 02/16/24 04:32 MPV 9.8 fL (7.4-10.4) 02/16/24 04:32 Gran % Cancelled 02/12/24 22:42 Neut % (Auto) 61.3 % 02/16/24 04:32 Lymph % (Auto) 21.7 % 02/16/24 04:32 [place] % (Auto) 11.3 % 02/16/24 04:32 Eos % (Auto) 4.4 % 02/16/24 04:32 Baso % (Auto) 1.0 % 02/16/24 04:32 Neut # (Auto) 4.31 10^3/uL (1.8-7.7) 02/16/24 04:32 Lymph # (Auto) 1.5 10^3/uL (0.8-4.8) 02/16/24 04:32 [place] # (Auto) 0.8 10^3/uL (0.2-0.9) 02/16/24 04:32 Eos # (Auto) 0.3 10^3/uL (0.0-0.8) 02/16/24 04:32 Baso # (Auto) 0.1 10^3/uL (0.0-0.1) 02/16/24 04:32 Absolute Gran (auto) Cancelled 02/12/24 22:42 Nucleated RBC % (auto) 0 % 02/16/24 04:32 Nucleated RBCs # 0.0 /100WBC 02/16/24 04:32 Sodium 137 mmol/L (136-145) 02/16/24 04:32 Potassium 4.0 mmol/L (3.5-5.1) 02/16/24 04:32 Chloride 100 mmol/L (98-107) 02/16/24 04:32 Carbon Dioxide 24 mmol/L (22-29) 02/16/24 04:32 Anion Gap 17.0 (5-19) 02/16/24 04:32 BUN 20 mg/dL (6-20) 02/16/24 04:32 Creatinine 4.0 mg/dL (0.5-0.9) H 02/16/24 04:32 GFR Calculation 12.6 mL/min (90-130) L 02/16/24 04:32 Glucose 140 mg/dL (65-115) H 02/16/24 04:32 POC Glucose 145 mg/dL (70-110) H 02/16/24 06:34 Calculated Osmolality 289 mOsm/kg (285-295) 02/16/24 04:32 Lactic Acid 0.9 mmol/L (0.5-2.2) 02/13/24 12:28 Lactate 1.4 mmol/L (0.5-2.2) 02/12/24 22:42 Calcium 9.2 mg/dL (8.5-10.5) 02/16/24 04:32 Phosphorus 4.7 mg/dL (2.5-4.5) H 02/12/24 03:57 Magnesium 1.8 mg/dL (1.7-2.3) 02/12/24 03:57 Total Bilirubin 0.3 mg/dL (0.15-1.2) 02/12/24 22:42 AST 84 U/L (0-32) H 02/12/24 22:42 ALT 114 U/L (0-33) H 02/12/24 22:42 Alkaline Phosphatase 163 U/L (35-105) H 02/12/24 22:42 Troponin T Baseline 297 ng/L (0-10) H* 02/11/24 12:01 Troponin T 120 Minute 277.5 ng/L (0-10) H 02/11/24 14:07 Delta Troponin T -19.5 ABS# (0-10) L 02/11/24 14:07 Troponin T Hi Sens 6Hr 300.0 ng/L (0-10) H 02/11/24 18:18 Troponin T Hi Sens 6Hr Delta 3.0 ng/L (0-12) 02/11/24 18:18 Total Protein 7.3 g/dL (6.6-8.7) 02/12/24 22:42 Albumin 3.5 g/dL (3.5-5.2) 02/12/24 22:42 Globulin 3.8 g/dL (1.3-4.6) 02/12/24 22:42 Lipase 24 U/L (13-60) 02/12/24 22:42 Urine Color Yellow (Yellow) 02/12/24 05:54 Urine Appearance Cloudy (CLEAR) A 02/12/24 05:54 Urine pH 7.5 (5-7) 02/12/24 05:54 Ur Specific [place] 1.013 (1.005-1.030) 02/12/24 05:54 Urine Protein 3+ (Negative) A 02/12/24 05:54 Urine Glucose (UA) 2+ (Normal) H 02/12/24 05:54 Urine Ketones Negative (Negative) 02/12/24 05:54 Urine Blood 2+ (Negative) A 02/12/24 05:54 Urine Nitrate Negative (Negative) 02/12/24 05:54 Urine Bilirubin Negative (Negative) 02/12/24 05:54 Urine Urobilinogen 0.2 mg/dL (Negative) 02/12/24 05:54 Ur Leukocyte Esterase Negative (Negative) 02/12/24 05:54 Urine RBC 15-25 /hpf (0-2) H 02/12/24 05:54 Urine WBC 0-4 /hpf (0-5) H 02/12/24 05:54 Ur Squamous Epith Cells 15-25 /hpf (0-5) H 02/12/24 05:54 Amorphous Sediment Not Reportable 02/12/24 05:54 Urine Bacteria 1+ /hpf (NONE) H 02/12/24 05:54 Serum Ketones Negative (Negative) 02/11/24 12:01 C. difficile (PCR) Negative (Negative) 02/12/24 01:26 Vitals Last Vital Signs Temp 98.2 F 02/16/24 07:22 Pulse 59 L 02/16/24 07:43 Resp 20 H 02/16/24 09:36 BP 129/71 02/16/24 07:22 Pulse Ox 95 02/16/24 07:43 O2 Del Method Room Air 02/16/24 07:43 Discharge Plan Discharge Patient Disposition: Home Condition: Stable Prescriptions: New carvedilol 25 mg Tablet 25 mg PO BID 30 Days Qty: 60 0RF hydralazine 50 mg Tablet 50 mg PO TID 30 Days Qty: 90 0RF amlodipine 10 mg Tablet 10 mg PO DAILY 30 Days Qty: 30 0RF Continued (DME) Dexcom G6 Pad Extraction Tender Misc See Rx Instructions .Route Qty: 1 0RF Rx Instructions: As directed (DME) Dexcom G6 Sensor Device See Rx Instructions .Route Qty: 3 0RF Rx Instructions: As directed (DME) Dexcom G6 Transmitter Device See Rx Instructions .Route Qty: 1 0RF Rx Instructions: As directed aspirin 81 mg tablet,delayed release (DR/EC) 81 mg PO QAM fluticasone furoate-vilanterol [Breo Ellipta] 100-25 mcg/dose Blister With Device 1 inh INHALATION DAILY PRN (Reason: Shortness Of Breath) sevelamer carbonate 800 mg Tablet 800 mg PO TID Qty: 90 0RF atorvastatin 40 mg tablet 40 mg PO BEDTIME clonidine HCl 0.1 mg tablet See Rx Instructions .ROUTE .COMPLEX PRN (Reason: Blood Pressure) Rx Instructions: TAKE 1 TABLET IF SYSTOLIC BLOOD PRESSURE IS GREATER THAN 160, REPEAT ONCE IF SYSTOLIC BLOOD PRESSURE IS STILL OVER 160 AFTER 1 HOUR. lisinopril 40 mg tablet 40 mg PO BEDTIME gabapentin 100 mg Capsule 100 mg PO TID escitalopram oxalate [Lexapro] 10 mg Tablet 10 mg PO DAILY insulin aspart U-100 [Novolog FlexPen U-100 Insulin] 100 unit/mL (3 mL) insulin pen See Rx Instructions .ROUTE .COMPLEX Qty: 15 0RF Rx Instructions: Inject, subcut, 3 times daily, after meals, based on sliding scale provided bumetanide 1 mg tablet 1 mg PO DAILY Rx Instructions: ON NON-DIALYSIS DAYS. Brilinta 90 mg tablet 90 mg PO BID Discontinued clopidogrel 75 mg tablet 75 mg PO DAILY carvedilol 12.5 mg tablet 12.5 mg PO BID Discharge Orders: Discharge Order (Routine); Ordered 02/16/24 Ordered By: Shola Carrera Referrals: Elizabeth Dougherty FNP [Primary Care Provider] - (You will need to call your primary care provider Dr. Dougherty to make a follow up appointment.) Riccardo Burch M.D [Physician] - 1 week Teddy Caceres DO [Physician] - 2 weeks Discharge Diet: GI Soft Discharge Activity: Resume usual activity Patient Instructions: Dialysis Diet (DC), Hemodialysis (DC), Opioid Safety Activity Restrictions/Additional Instructions: - If you have recurrent abdominal pain please go to the emergency room If you have recurrent chest pain please go to the emergency room Discharge Attestations Time Spent in Discharge Care*: greater than 30 min Status at Discharge: Cognitive status at discharge: cognitively intact , Beh avioral status at discharge: cooperative and independent in ADL's , Quality Metrics Clinical Quality Measures [ No reported AMI, CVA or VTE this stay] Coding Level of Care Code 81827 Total time (in minutes) for Discharge: 45 Diagnoses End stage renal disease on dialysis N18.6; Z99.2
--- NOTE | 2024-02-16 10:41 | P.PN_ITS ---
Subjective 2 Subjective: Patient continues to report abdominal pain and nausea but she tolerated diet. Positive BM Vitals/I&O/Wt Last Vital Signs Temp 98.2 F 02/16/24 07:22 Pulse 59 L 02/16/24 07:43 Resp 20 H 02/16/24 09:36 BP 129/71 02/16/24 07:22 Pulse Ox 95 02/16/24 07:43 O2 Del Method Room Air 02/16/24 07:43 02/15/24 02/16/24 02/16/24 22:59 06:59 14:59 Intake Total 620 / 620 1000 / 1620 Output Total 2650 / 3150 Balance -2030 / -2530 1000 / -1530 Weight last 48 hrs Weight 117 lb 8 oz Weight 257 lb 15.053 oz Weight 124 lb Physical Exam 2 Narrative: General: No acute distress, awake alert and oriented x 3 Abdomen: Soft, nontender, nondistended Data 02/16/24 04:32 02/16/24 04:32 A&P Assessment and plan (1) Abdominal pain: Qualifiers: Abdominal location: left upper quadrant Qualified Code(s): R10.12 - Left upper quadrant pain (2) Small bowel intussusception: Plan I cannot rule out malingering Repeat CT did not show intussusception Soft diet Surgically stable for discharge Medical management per hospitalist Attestations 2 Medical Necessity Statement*: Per primary Coding Level of Care Code 37451 Diagnoses Abdominal pain R10.12 Abdominal location: left upper quadrant Small bowel intussusception K56.1
[2024-02-16 11:19] LABS: Glucose Point of Care 185 mg/dL (70-110)
[2024-02-16] MEDS: insulin lispro 100 unit/1 mL SUBCUT (11:27)
== END 2024-02-16 15:58 | disposition home or self-care (01) | DRG 302 ==
LOC: ER 11:53 → ICU 14:38 → MEDSURG 02-12 14:55
PROVIDERS: Internal Medicine; Admitting Provider Hospitalist; Emergency Provider Family Medicine; PCP Nurse Practitioner Family; Visit Provider Family Medicine
DX: I25.110 Atherosclerotic heart disease of native coronary artery with unstable angina pectoris (principal); N18.6 End stage renal disease; I13.2 Hypertensive heart and chronic kidney disease with heart failure and with stage 5 chronic kidney disease, or end stage renal disease; K56.1 Intussusception; E10.22 Type 1 diabetes mellitus with diabetic chronic kidney disease; I50.9 Heart failure, unspecified; I16.0 Hypertensive urgency; D64.9 Anemia, unspecified; R79.89 Other specified abnormal findings of blood chemistry; R07.89 Other chest pain; E10.40 Type 1 diabetes mellitus with diabetic neuropathy, unspecified; Z87.891 Personal history of nicotine dependence; Z99.2 Dependence on renal dialysis; Z95.5 Presence of coronary angioplasty implant and graft; I25.2 Old myocardial infarction; Z79.02 Long term (current) use of antithrombotics/antiplatelets; Z82.49 Family history of ischemic heart disease and other diseases of the circulatory system
CPT/HCPCS: 36415; 36416; 71045; 74018; 74174; 74177; 80048; 80053; 81003; 81015; 82009; 82962; 83605; 83690; 83735; 84100; 84484; 85025; 87493; 90935; 93005; 93308; 96365; 96366; 96372; 99285; G0378; J0885; J1644; J1815; J2270; J2405; J2765; J7030; Q3014; Q4081; Q9967

== ENCOUNTER → 2024-02-20 14:53 | Outpatient (BNVA) | payer MEDICARE, MEDICAID, SELFPAY | PROVIDERS: PCP Nurse Practitioner Family; Visit Provider Nurse Practitioner Family | DX: R07.9 Chest pain, unspecified (principal) | CPT/HCPCS: 99213 ==

== ENCOUNTER 2024-02-28 10:59 | Emergency (ER) | payer MEDICARE, MEDICAID, SELFPAY ==
[2024-02-28 12:31] VITALS: BP 111/68; PULSE 69; RESP 20; TEMP 36.7; O2SAT 97; BMI 23.4
--- NOTE | 2024-02-28 14:18 | XRR_ITS ---
PROCEDURE INFORMATION: Exam: XR Abdomen Exam date and time: 02/28/2024 2:21 PM Age: 38 years old Clinical indication: Abdominal pain; Generalized TECHNIQUE: Imaging protocol: Radiologic exam of the abdomen. Views: 2 Views. Upright and supine views. COMPARISON: CR (ABDOMEN, ) 02/16/2024 11:17 AM FINDINGS: Tubes, catheters and devices: Central line terminates near the atrial caval junction. Pleural spaces: Minimally blunted left CP angle, minimal effusion or pleural thickening. Gastrointestinal tract: Gas within nondistended colon. Intraperitoneal space: Right upper quadrant surgical clips suggest cholecystectomy. Bones/joints: Unremarkable for age. XR/XR acute abdomen series [id number] IMPRESSION: Nonspecific.
[2024-02-28 14:42] LABS: Basophils # 0.1 10^3/uL (0.0-0.1); Basophils % 1.2 %; Eosinophils # 0.3 10^3/uL (0.0-0.8); Eosinophils % 4.9 %; Hematocrit 42.1 % (36-47); Lymphocytes # 1.6 10^3/uL (0.8-4.8); Lymphocytes % 27.8 %; Mean Corpuscular HGB Conc 31.1 g/dL (30-55); Mean Corpuscular Hemoglobin 28.9 pg (27-33); Mean Corpuscular Volume 92.7 fl (85-98); Mean Platelet Volume 9.7 fL (7.4-10.4); Monocytes # 0.6 10^3/uL (0.2-0.9); Monocytes % 9.6 %; Neutrophils # 3.22 10^3/uL (1.8-7.7); Neutrophils % 56.3 %; Nucleated Red Blood Cells % 0 %; Platelet Count 172 10^3/cmm (157-399); Red Blood Count 4.54 10^6/uL (3.85-5.65); Red Cell Distribution Width 15.5 % (12.1-15.1); White Blood Count 5.72 10^3/uL (3.29-11.43)
[2024-02-28 14:58] LABS: Alanine Aminotransferase 62 U/L (0-33); Albumin Level 3.5 g/dL (3.5-5.2); Alkaline Phosphatase 145 U/L (35-105); Anion Gap 19.6 (5-19); Aspartate Amino Transferase 55 U/L (0-32); Blood Urea Nitrogen 13 mg/dL (6-20); Calcium 8.6 mg/dL (8.5-10.5); Carbon Dioxide 21 mmol/L (22-29); Chloride 103 mmol/L (98-107); Creatinine Clr Calc Pharmacy 15.3002; Globulin 3.6 g/dL (1.3-4.6); Glucose 232 mg/dL (65-115); Osmolality Calculated 296 mOsm/kg (285-295); Potassium 4.6 mmol/L (3.5-5.1); Sodium 139 mmol/L (136-145); Total Bilirubin 0.3 mg/dL (0.15-1.2); Total Protein 7.1 g/dL (6.6-8.7)
--- NOTE | 2024-02-28 15:24 | CTR_ITS ---
PROCEDURE INFORMATION: Exam: CT Abdomen And Pelvis Without Contrast Exam date and time: 02/28/2024 3:49 PM Age: 38 years old Clinical indication: Abdominal pain TECHNIQUE: Imaging protocol: Computed tomography of the abdomen and pelvis without contrast. Radiation optimization: All CT scans at this facility use at least one of these dose optimization techniques: automated exposure control; mA and/or kV adjustment per patient size (includes targeted exams where dose is matched to clinical indication); or iterative reconstruction. COMPARISON: CT abdomen pelvis w con* [id number] 02/14/2024 3:57 PM RADIATION DOSE METRICS: Total DLP (mGy-cm): 374.71 FINDINGS: Lungs: Lung bases are clear. Liver: Normal. No mass. Gallbladder and biliary ducts: Gallbladder has been removed. Mild dilatation of the common bile duct redemonstrated. Pancreas: Pancreas is atrophic, otherwise unremarkable. Spleen: There are scattered calcified granulomas within the spleen, longstanding, otherwise spleen is unremarkable. Adrenal glands: Normal. No mass. Kidneys and ureters: Mild scarring lower pole left kidney unchanged. No calculi or hydronephrosis. Stomach and bowel: Unremarkable. No obstruction. No mucosal thickening. Appendix: No evidence of acute appendicitis. Intraperitoneal space: Trace pelvic free fluid presumed physiological in nature. Vasculature: Scattered atherosclerotic changes of the abdominal aorta and iliac vessels. No aortic aneurysm. Lymph nodes: Unremarkable. No enlarged lymph nodes. Urinary bladder: Moderate bladder wall thickening unchanged, nonspecific. Reproductive: Unremarkable as visualized. Bones/joints: Chronic grade 1 isthmic spondylolisthesis L5-S1 unchanged. No acute bony abnormalities. Soft tissues: Mild anasarca in the soft tissues improved from prior study. CT/CT abdomen pelvis wo con [id number] IMPRESSION: 1. Nonspecific bladder wall thickening unchanged. Please correlate for cystitis. 2. Additional nonemergent findings as above.
--- NOTE | 2024-02-28 15:26 | ED_ITS ---
HPI - Abdominal Pain 2 General: Chief Complaint: Abdominal Pain Stated Complaint: abd pain Time Seen by Provider: 02/28/24 14:03 History of Present Illness: 38-year-old female with a history of hyp erlipidemia, hypertension, end-stage renal disease on dialysis, coronary artery disease, CHF and diabetes who presents to the emergency room with abdominal pain. She complains of a middle abdominal pain that was similar to what she was admitted to the hospital with a couple weeks ago. She had been found to have a small bowel intussusception that resolved with NG placement. She had presented from dialysis clinic at that time with chest pain. She has had some nausea but no vomiting. No fevers. Related Data Date of Last Menstrual Period: 12/22/10 Home Medications Medication Instructions Recorded Confirmed fluticasone furoate 100 1 inh inhalation DAILY PRN 09/14/23 02/20/24 mcg-vilanterol 25 mcg/dose Shortness Of Breath inhalation powder (Breo Ellipta) atorvastatin 40 mg tablet 40 mg PO BEDTIME 11/27/23 02/20/24 clonidine HCl 0.1 mg tablet See Rx Instructions .Route 11/27/23 02/20/24 .COMPLEX PRN Blood Pressure lisinopril 40 mg tablet 40 mg PO BEDTIME 11/27/23 02/20/24 aspirin 81 mg tablet,delayed 81 mg PO QAM 12/20/23 02/20/24 release escitalopram oxalate 10 mg tablet 10 mg PO DAILY 12/27/23 02/20/24 (Lexapro) gabapentin 100 mg capsule 100 mg PO TID 12/27/23 02/20/24 bumetanide 1 mg tablet 1 mg PO DAILY 02/11/24 02/20/24 ticagrelor 90 mg tablet (Brilinta) 90 mg PO BID 02/11/24 02/20/24 Previous Rx's Medication Instructions Recorded blood-glucose meter,continuous #1 ea 06/12/22 (Dexcom G6 Passenger Solicitor) blood-glucose sensor (Dexcom G6 #3 ea 06/12/22 Sensor device) blood-glucose transmitter (Dexcom #1 ea 06/12/22 G6 Transmitter device) sevelamer carbonate 800 mg tablet 800 mg PO TID #90 tabs 09/16/23 insulin aspart U-100 100 unit/mL See Rx Instructions .Route 01/01/24 (3 mL) subcutaneous pen (Novolog .COMPLEX #15 mL FlexPen U-100 Insulin aspart) amlodipine 10 mg tablet 10 mg PO DAILY 30 days #30 tabs 02/16/24 carvedilol 25 mg tablet 25 mg PO BID 30 days #60 tabs 02/16/24 hydralazine 50 mg tablet 50 mg PO TID 30 days #90 tabs 02/16/24 Allergies Allergy/AdvReac Type Severity Reaction Status Date / Time acetaminophen AdvReac Mild ADR-Gastrointestinal Verified 02/20/24 14:57 Upset Review of Systems 2 Narrative: Constitutional symptoms: Negative except as documented in HPI. Skin symptoms: Negative except as documented in HPI. Eye symptoms: Negative except as documented in HPI. ENMT symptoms: Negative except as documented in HPI. Respiratory symptoms: Negative except as documented in HPI. Cardiovascular symptoms: Negative except as documented in HPI. Gastrointestinal symptoms: Negative except as documented in HPI. Genitourinary symptoms: Negative except as documented in HPI. Musculoskeletal symptoms: Negative except as documented in HPI. Neurologic symptoms: Negative except as documented in HPI. Psychiatric symptoms: Negative except as documented in HPI. Endocrine symptoms: Negative except as documented in HPI. PFSH ED 2 PFSH: Medical History ESRD (end stage renal disease) Transaminitis Intractable nausea and vomiting Hyperlipidemia HTN (hypertension) CHF (congestive heart failure), NYHA class III Pulmonary hypertension CAD (coronary artery disease) Neurogenic bladder COVID-19 Tobacco dependence Drug abuse Anemia Community acquired pneumonia Esophagitis Long-term insulin use History of pancreatitis Celiac disease Recurrent UTI Non-alcoholic fatty liver disease Arnold-Chiari malformation Diabetic gastroparesis -continue Reglan Diabetic neuropathy associated with type 1 diabetes mellitus Headache, common migraine, intractable, with status migrainosus Pleural effusion 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 History of lung surgery -s/p LLL lobectomy secondary to cavitary pneumonia (2017) History of endoscopy History of cholecystectomy Family History Grandfather Diabetes Mother CAD (coronary artery disease) Diabetes Brother Acute lymphoblastic leukemia (ALL) in child Other Heart disease Hypertension Social History Smoking and tobacco/nicotine status: former use of tobacco/nicotine Quit status (tobacco/nicotine): has quit using Former quit date comment: She previously smoked <1/2 PPD, quit July 2023. Second hand smoke exposure: Yes Alcohol intake: never Substance/Drug Use: current Household members: children Housing: House Marital status: Single Current occupational status: unemployed Female Reproductive History: Date of last menstrual period: 12/22/10 Physical Exam 2 Narrative: EXAM NARRATIVE: General: Alert, no acute distress. Skin: Warm, dry. Head: Normocephalic, atraumatic. Neck: Supple, trachea midline. Eye: Extraocular movements are intact. Ears, nose, mouth and throat: mucosa moist. Cardiovascular: Regular, Normal peripheral perfusion. Respiratory: Lungs are clear to auscultation, respirations are non-labored, breath sounds are equal, Symmetrical chest wall expansion. Gastrointestinal: Soft, moderate epigastric generalized tenderness, Non distended Musculoskeletal: Normal ROM, no deformity. Neurological: Alert and oriented, No focal neurological deficit observed. Psychiatric: Cooperative, appropriate mood & affect. Course 2 Vital Signs: Vital signs: Vital Signs Temperature 98.1 F 02/28/24 12:31 Pulse Rate 69 02/28/24 12:31 Respiratory Rate 20 H 02/28/24 12:31 Blood Pressure 111/68 02/28/24 12:31 Pulse Oximetry 97 02/28/24 12:31 Oxygen Delivery Me thod Room Air 02/28/24 12:31 MDM - Abdominal Pain Medical Decision Making Medical decision making: Differential diagnosis including but not limited to and based on the above HPI, review of systems and physical exam: Concern for recurrence of the intussusception. Or other abdominal pathologies. Basic lab work and imaging are ordered. Orders placed to evaluate differential diagnosis based on the above differential, HPI and physical exam Acute abdominal series: chest x-ray: No acute process. No obvious infiltrates. No pneumothorax. No cardiomegaly. This was reviewed and interpreted by myself the emergency room physician Abdomen x-ray: Nonspecific bowel gas pattern. No evidence of free air or obstruction. This was reviewed and interpreted by myself the emergency room physician. Lab Review: Laboratory results were reviewed and interpreted by myself the emergency room physician. Lab work is unremarkable. No leukocytosis. BUN and creatinine are 13 and 3.9 which would be expected. Her sugar is little high at 232. CT of the abdomen pelvis without contrast: There is no acute processes. This was reviewed and interpreted by myself the emergency room physician. I also reviewed the radiology report. I reviewed the patient's medical record. Patient had admission recently for what was thought to be as intussusception which resolved. No evidence of this today or any other acute process. Reexamination: Patient remained stable. No increased work of breathing. No altered mental status. No focal motor deficits. Assessment and plan: Abdominal pain End-stage renal disease on dialysis. ?IV Dilaudid and Zofran in the emergency room. - Discharged home - Discussed findings and plan with patient. Answered any questions. - All laboratory values were reviewed and interpreted personally by myself, the ER physician - All imaging was reviewed and interpreted personally by myself, the ER physician. - Evaluation and treatment of this problem were appropriate in the emergency setting Lab Data 02/28/24 14:30 02/28/24 14:30 Labs/Radiology: Radiology Impressions Chest/Abdomen X-ray 02/28/24 14:18 IMPRESSION: Nonspecific. Abdomen/Pelvis CT 02/28/24 15:24 IMPRESSION: 1. Nonspecific bladder wall thickening unchanged. Please correlate for cystitis. 2. Additional nonemergent findings as above. Laboratory Results WBC 5.72 10^3/uL (3.29-11.43) 02/28/24 14:30 RBC 4.54 10^6/uL (3.85-5.65) 02/28/24 14:30 Hgb 13.10 g/dL (11.27-16.99) 02/28/24 14:30 Hct 42.1 % (36-47) 02/28/24 14:30 MCV 92.7 fl (85-98) 02/28/24 14:30 MCH 28.9 pg (27-33) 02/28/24 14:30 MCHC 31.1 g/dL (30-55) 02/28/24 14:30 RDW 15.5 % (12.1-15.1) H 02/28/24 14:30 Plt Count 172 10^3/cmm (157-399) 02/28/24 14:30 MPV 9.7 fL (7.4-10.4) 02/28/24 14:30 Neut % (Auto) 56.3 % 02/28/24 14:30 Lymph % (Auto) 27.8 % 02/28/24 14:30 [place] % (Auto) 9.6 % 02/28/24 14:30 Eos % (Auto) 4.9 % 02/28/24 14:30 Baso % (Auto) 1.2 % 02/28/24 14:30 Neut # (Auto) 3.22 10^3/uL (1.8-7.7) 02/28/24 14:30 Lymph # (Auto) 1.6 10^3/uL (0.8-4.8) 02/28/24 14:30 [place] # (Auto) 0.6 10^3/uL (0.2-0.9) 02/28/24 14:30 Eos # (Auto) 0.3 10^3/uL (0.0-0.8) 02/28/24 14:30 Baso # (Auto) 0.1 10^3/uL (0.0-0.1) 02/28/24 14:30 Nucleated RBC % (auto) 0 % 02/28/24 14:30 Nucleated RBCs # 0.0 /100WBC 02/28/24 14:30 Sodium 139 mmol/L (136-145) 02/28/24 14:30 Potassium 4.6 mmol/L (3.5-5.1) 02/28/24 14:30 Chloride 103 mmol/L (98-107) 02/28/24 14:30 Carbon Dioxide 21 mmol/L (22-29) L 02/28/24 14:30 Anion Gap 19.6 (5-19) H 02/28/24 14:30 BUN 13 mg/dL (6-20) 02/28/24 14:30 Creatinine 3.9 mg/dL (0.5-0.9) H 02/28/24 14:30 GFR Calculation 13.0 mL/min (90-130) L 02/28/24 14:30 Glucose 232 mg/dL (65-115) H 02/28/24 14:30 Calculated Osmolality 296 mOsm/kg (285-295) H 02/28/24 14:30 Calcium 8.6 mg/dL (8.5-10.5) 02/28/24 14:30 Total Bilirubin 0.3 mg/dL (0.15-1.2) 02/28/24 14:30 AST 55 U/L (0-32) H 02/28/24 14:30 ALT 62 U/L (0-33) H 02/28/24 14:30 Alkaline Phosphatase 145 U/L (35-105) H 02/28/24 14:30 Total Protein 7.1 g/dL (6.6-8.7) 02/28/24 14:30 Albumin 3.5 g/dL (3.5-5.2) 02/28/24 14:30 Globulin 3.6 g/dL (1.3-4.6) 02/28/24 14:30 HCG, Qual Negative (Negative) 02/28/24 14:30 All radiology interpretation(s) finalized by discharge Discharge Plan Discharge Patient Disposition: Home Clinical Impression: Abdominal pain Condition: Stable Prescriptions: No Action (DME) Dexcom G6 Passenger Solicitor Misc See Rx Instructions .Route Qty: 1 0RF Rx Instructions: As directed (DME) Dexcom G6 Sensor Device See Rx Instructions .Route Qty: 3 0RF Rx Instructions: As directed (DME) Dexcom G6 Transmitter Device See Rx Instructions .Route Qty: 1 0RF Rx Instructions: As directed aspirin 81 mg tablet,delayed release (DR/EC) 81 mg PO QAM fluticasone furoate-vilanterol [Breo Ellipta] 100-25 mcg/dose Blister With Device 1 inh INHALATION DAILY PRN (Reason: Shortness Of Breath) sevelamer carbonate 800 mg Tablet 800 mg PO TID Qty: 90 0RF atorvastatin 40 mg tablet 40 mg PO BEDTIME clonidine HCl 0.1 mg tablet See Rx Instructions .ROUTE .COMPLEX PRN (Reason: Blood Pressure) Rx Instructions: TAKE 1 TABLET IF SYSTOLIC BLOOD PRESSURE IS GREATER THAN 160, REPEAT ONCE IF SYSTOLIC BLOOD PRESSURE IS STILL OVER 160 AFTER 1 HOUR. lisinopril 40 mg tablet 40 mg PO BEDTIME gabapentin 100 mg Capsule 100 mg PO TID escitalopram oxalate [Lexapro] 10 mg Tablet 10 mg PO DAILY insulin aspart U-100 [Novolog FlexPen U-100 Insulin] 100 unit/mL (3 mL) insulin pen See Rx Instructions .ROUTE .COMPLEX Qty: 15 0RF Rx Instructions: Inject, subcut, 3 times daily, after meals, based on sliding scale provided bumetanide 1 mg tablet 1 mg PO DAILY Rx Instructions: ON NON-DIALYSIS DAYS. Brilinta 90 mg tablet 90 mg PO BID carvedilol 25 mg Tablet 25 mg PO BID 30 Days Qty: 60 0RF amlodipine 10 mg Tablet 10 mg PO DAILY 30 Days Qty: 30 0RF hydralazine 50 mg Tablet 50 mg PO TID 30 Days Qty: 90 0RF Discharge Orders: Discharge ED (Routine); Ordered 02/28/24 Ordered By: Dawna Briceno Referrals: Elizabeth Dougherty FNP [Primary Care Provider] - Discharge Diet: Usual diet Discharge Activity: Resume usual activity Patient Instructions: Abdominal Pain (ED), Pain Management Activity Restrictions/Additional Instructions: Thank you for choosing [facility] for your healthcare needs today. Please realize this is an emergency room and that we are providing you with a medical screening exam and this may not be complete and all inclusive of all the testing and or work up that you may need to determine your ailment or severity of your illness. You have been screened and evaluated and felt safe for discharge. Health conditions do change or evolve sometimes and as such it is important that you follow up with your Primary Doctor to be re checked, 3-5 days is a general good time frame for follow up. You are always welcome to return to the ED for re assessment if your symptoms are worsening or you have new concerns Coding Level of Care Code ED Chemical Production Engineer for Reji Chandler
[2024-02-28 15:51] LABS: HCG, Serum Qual Negative (Negative)
[2024-02-28] MEDS: HYDROmorphone 1 mg/mL INJ 1 mL IVP (17:22)
[2024-02-28] MEDS: ondansetron 2 mg/ML SDV 2 mL 4 MG IVP (17:22)
[2024-02-28 17:23] VITALS: PULSE 68; O2SAT 99
[2024-02-28 18:03] VITALS: BP 161/94; PULSE 72; O2SAT 98
== END 2024-02-28 18:17 | disposition home or self-care (01) ==
PROVIDERS: Emergency Provider Emergency Medicine; PCP Nurse Practitioner Family
DX: R10.9 Unspecified abdominal pain (principal); E10.22 Type 1 diabetes mellitus with diabetic chronic kidney disease; I13.2 Hypertensive heart and chronic kidney disease with heart failure and with stage 5 chronic kidney disease, or end stage renal disease; I50.9 Heart failure, unspecified; N18.6 End stage renal disease; E78.5 Hyperlipidemia, unspecified; I25.10 Atherosclerotic heart disease of native coronary artery without angina pectoris; Z87.891 Personal history of nicotine dependence; Z79.82 Long term (current) use of aspirin; Z79.4 Long term (current) use of insulin
CPT/HCPCS: 36415; 74022; 74176; 80053; 84703; 85025; 96374; 96375; 99285; J1170; J2405

== ENCOUNTER 2024-03-05 10:23 | Inpatient (IN) | payer MEDICARE, MEDICAID, SELFPAY ==
[2024-03-05] VITALS (13 sets, daily range): BP systolic 96–236; BP diastolic 65–149; PULSE 70–79; RESP 12–23; TEMP 36.6–36.9; O2SAT 98–99; BMI 23.8
--- NOTE | 2024-03-05 11:19 | W.ED.ABDPA2 ---
HPI - Abdominal Pain General: Chief Complaint: Abdominal Pain Stated Complaint: abdominal pain - dialysis pt Time Seen by Provider: 03/05/24 11:04 History of Present Illness: 38 female presents emergency room with generalized abdominal pain flank pain persistent nausea and vomiting. She generally gets her dialysis on Tuesdays and Saturday she missed dialysis today. She has not had any fevers sweats or chills. Associated Symptoms: Reports nausea and vomiting; Denies chills, dysuria and fever(s) Related Data Home Medications Medication Instructions Recorded Confirmed fluticasone furoate 100 1 inh inhalation DAILY PRN 09/14/23 03/05/24 mcg-vilanterol 25 mcg/dose Shortness Of Breath inhalation powder (Breo Ellipta) atorvastatin 40 mg tablet 40 mg PO BEDTIME 11/27/23 03/05/24 clonidine HCl 0.1 mg tablet See Rx Instructions .Route 11/27/23 03/05/24 .COMPLEX PRN Blood Pressure lisinopril 40 mg tablet 40 mg PO BEDTIME 11/27/23 03/05/24 aspirin 81 mg tablet,delayed 81 mg PO QAM 12/20/23 03/05/24 release escitalopram oxalate 10 mg tablet 10 mg PO DAILY 12/27/23 03/05/24 (Lexapro) gabapentin 100 mg capsule 100 mg PO TID 12/27/23 03/05/24 bumetanide 1 mg tablet 1 mg PO DAILY 02/11/24 03/05/24 ticagrelor 90 mg tablet (Brilinta) 90 mg PO BID 02/11/24 03/05/24 Previous Rx's Medication Instructions Recorded blood-glucose meter,continuous #1 ea 06/12/22 (Dexcom G6 Bilingual Administrative Assistant) blood-glucose sensor (Dexcom G6 #3 ea 06/12/22 Sensor device) blood-glucose transmitter (Dexcom #1 ea 06/12/22 G6 Transmitter device) sevelamer carbonate 800 mg tablet 800 mg PO TID #90 tabs 09/16/23 insulin aspart U-100 100 unit/mL See Rx Instructions .Route 01/01/24 (3 mL) subcutaneous pen (Novolog .COMPLEX #15 mL FlexPen U-100 Insulin aspart) amlodipine 10 mg tablet 10 mg PO DAILY 30 days #30 tabs 02/16/24 carvedilol 25 mg tablet 25 mg PO BID 30 days #60 tabs 02/16/24 hydralazine 50 mg tablet 50 mg PO TID 30 days #90 tabs 02/16/24 Allergies Allergy/AdvReac Type Severity Reaction Status Date / Time acetaminophen AdvReac Mild ADR-Gastrointestinal Verified 03/05/24 11:00 Upset Review of Systems Const: Denies: fever(s) or chills Card: Denies: chest pain Resp: Denies: dyspnea GI: Reports: abdominal pain, nausea and vomiting : Denies: dysuria, urinary frequency or urinary urgency Musc: Denies: neck pain or back pain Skin/Breast: Denies: rash PFSH ED PFSH: Medical History ESRD (end stage renal disease) Transaminitis Intractable nausea and vomiting Hyperlipidemia HTN (hypertension) CHF (congestive heart failure), NYHA class III Pulmonary hypertension CAD (coronary artery disease) Neurogenic bladder COVID-19 Tobacco dependence Drug abuse Anemia Community acquired pneumonia Esophagitis Long-term insulin use History of pancreatitis Celiac disease Recurrent UTI Non-alcoholic fatty liver disease Arnold-Chiari malformation Diabetic gastroparesis -continue Reglan Diabetic neuropathy associated with type 1 diabetes mellitus Headache, common migraine, intractable, with status migrainosus Pleural effusion 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 History of lung surgery -s/p LLL lobectomy secondary to cavitary pneumonia (2016) History of endoscopy History of cholecystectomy Family History Grandfather Diabetes Mother CAD (coronary artery disease) Diabetes Brother Acute lymphoblastic leukemia (ALL) in child Other Heart disease Hypertension Social History Smoking and tobacco/nicotine status: former use of tobacco/nicotine Quit status (tobacco/nicotine): has quit using Former quit date comment: She previously smoked <1/2 PPD, quit July 2023. Second hand smoke exposure: Yes Alcohol intake: never Substance/Drug Use: current Household members: children Housing: House Marital status: Single Current occupational status: unemployed Physical Exam Const: GENERAL APPEARANCE: cooperative ORIENTATION/CONSCIOUSNESS: Yes awake HENMT: COMMON NORMALS: normocephalic, atraumatic and hearing grossly normal bilaterally HEAD & SCALP: normocephalic and atraumatic Resp: COMMON NORMALS: normal respiratory effort, No retractions, No use of accessory muscles and clear to auscultation bilaterally AUSCULTATION: clear to auscultation bilaterally Cardio: COMMON NORMALS: regular rate, regular rhythm and No murmurs present (Cardio) RATE: regular rate RHYTHM: regular rhythm GI: COMMON NORMALS: Soft to palpation and No hepatosplenomegaly present AUSCULTATION: Yes normoactive bowel sounds PALPATION: Yes Soft to palpation, No Tenderness to palpation present (GI), No Guarding due to palpation present (GI) and Yes No hepatosplenomegaly present Extremity: COMMON NORMALS: normal to inspection, capillary refill normal, no clubbing, cyanosis or edema, no calf tenderness and no pedal edema Skin: COMMON NORMALS: no rashes or lesions noted GENERAL SKIN EXAM: no rashes or lesions noted Course Vital Signs: Vital signs: Vital Signs Temperature 98.2 F 03/05/24 16:15 Pulse Rate 77 03/05/24 16:15 Respiratory Rate 18 03/05/24 16:25 Blood Pressure 132/82 03/05/24 16:15 Pulse Oximetry 98 03/05/24 15:40 Oxygen Delivery Me thod Room Air 03/05/24 16:43 MDM - Abdominal Pain Medical Decision Making Elevated blood pressure with persistent nausea and vomiting hyperkalemia. Blood pressure is still elevated but nausea has improved some. Will place on observation continue blood pressure control and nausea medications nephrology consulted for dialysis Medical Records I reviewed the patient's medical records. Lab Data I reviewed the patient's lab results. 03/05/24 11:37 03/05/24 11:37 Labs/Radiology: Radiology Impressions Abdomen/Pelvis CT 03/05/24 12:45 IMPRESSION: 1. Mild nonspecific right-sided colitis, as described above. 2. Mild circumferential urinary bladder wall thickening, likely secondary to underdistention. 3. Additional findings, as above. Laboratory Results WBC 7.07 10^3/uL (3.29-11.43) 03/05/24 11:37 RBC 4.55 10^6/uL (3.85-5.65) 03/05/24 11:37 Hgb 13.20 g/dL (11.27-16.99) 03/05/24 11:37 Hct 41.4 % (36-47) 03/05/24 11:37 MCV 91.0 fl (85-98) 03/05/24 11:37 MCH 29.0 pg (27-33) 03/05/24 11:37 MCHC 31.9 g/dL (30-55) 03/05/24 11:37 RDW 16.7 % (12.1-15.1) H 03/05/24 11:37 Plt Count 153 10^3/cmm (157-399) L 03/05/24 11:37 MPV 9.7 fL (7.4-10.4) 03/05/24 11:37 Neut % (Auto) 69.6 % 03/05/24 11:37 Lymph % (Auto) 17.8 % 03/05/24 11:37 [place] % (Auto) 7.8 % 03/05/24 11:37 Eos % (Auto) 4.0 % 03/05/24 11:37 Baso % (Auto) 0.7 % 03/05/24 11:37 Neut # (Auto) 4.92 10^3/uL (1.8-7.7) 03/05/24 11:37 Lymph # (Auto) 1.3 10^3/uL (0.8-4.8) 03/05/24 11:37 [place] # (Auto) 0.6 10^3/uL (0.2-0.9) 03/05/24 11:37 Eos # (Auto) 0.3 10^3/uL (0.0-0.8) 03/05/24 11:37 Baso # (Auto) 0.1 10^3/uL (0.0-0.1) 03/05/24 11:37 Nucleated RBC % (auto) 0 % 03/05/24 11:37 Nucleated RBCs # 0.0 /100WBC 03/05/24 11:37 Specimen Type Arterial 03/05/24 11:58 Sample Site Brachial, right 03/05/24 11:58 ABG pH 7.32 (7.35-7.45) L 03/05/24 11:58 ABG pCO2 36.3 mmHg (35-45) 03/05/24 11:58 ABG pO2 102.0 mmHg (80.0-100.0) H 03/05/24 11:58 ABG PO2/FiO2 Ratio 485 03/05/24 11:58 ABG HCO3 18.8 mmol/L (22-26) L 03/05/24 11:58 ABG O2 Saturation 98.4 03/05/24 11:58 ABG Base Excess -6.5 mmol/L (-2.0-2.0) L 03/05/24 11:58 Braulio Test N/a 03/05/24 11:58 A-a O2 Gradient 0.1 mmHg (5-10) L 03/05/24 11:58 Hematocrit 40.6 % (37-47) 03/05/24 11:58 Hgb O2 Saturation 96.2 % (95-100) 03/05/24 11:58 Carboxyhemoglobin 1.2 %THgb (0.4-20.1) 03/05/24 11:58 Methemoglobin 1.0 % (0.4-1.5) 03/05/24 11:58 Total Hemoglobin 13.3 g/dL (12-16) 03/05/24 11:58 Sodium 138.0 mmol/L (131-143) 03/05/24 11:58 Potassium 5.3 mmol/L (3.5-5.0) H 03/05/24 11:58 Glucose 261.0 mg/dL (70-115) H 03/05/24 11:58 Ionized Calcium 1.2 mmol/L (1.1-1.4) 03/05/24 11:58 O2 Delivery Device Room air 03/05/24 11:58 FiO2 21.0 % 03/05/24 11:58 Junior Account Executive ID Amh 03/05/24 11:58 Sodium 135 mmol/L (136-145) L 03/05/24 11:37 Potassium 5.5 mmol/L (3.5-5.1) H 03/05/24 11:37 Chloride 101 mmol/L (98-107) 03/05/24 11:37 Carbon Dioxide 20 mmol/L (22-29) L 03/05/24 11:37 Anion Gap 19.5 (5-19) H 03/05/24 11:37 BUN 52 mg/dL (6-20) H 03/05/24 11:37 Creatinine 6.2 mg/dL (0.5-0.9) H* 03/05/24 11:37 GFR Calculation 7.6 mL/min (90-130) L 03/05/24 11:37 Glucose 284 mg/dL (65-115) H 03/05/24 11:37 Calculated Osmolality 304 mOsm/kg (285-295) H 03/05/24 11:37 Calcium 9.0 mg/dL (8.5-10.5) 03/05/24 11:37 Total Bilirubin 0.4 mg/dL (0.15-1.2) 03/05/24 11:37 AST 53 U/L (0-32) H 03/05/24 11:37 ALT 67 U/L (0-33) H 03/05/24 11:37 Alkaline Phosphatase 163 U/L (35-105) H 03/05/24 11:37 Total Protein 7.4 g/dL (6.6-8.7) 03/05/24 11:37 Albumin 3.7 g/dL (3.5-5.2) 03/05/24 11:37 Globulin 3.7 g/dL (1.3-4.6) 03/05/24 11:37 HCG, Qual Negative (Negative) 03/05/24 11:37 Urine Color Yellow (Yellow) 03/05/24 11:50 Urine Appearance Slightly cloudy (CLEAR) 03/05/24 11:50 Urine pH 7.5 (5-7) 03/05/24 11:50 Ur Specific [place] 1.016 (1.005-1.030) 03/05/24 11:50 Urine Protein 3+ (Negative) A 03/05/24 11:50 Urine Glucose (UA) 3+ (Normal) H 03/05/24 11:50 Urine Ketones Negative (Negative) 03/05/24 11:50 Urine Blood 3+ (Negative) A 03/05/24 11:50 Urine Nitrate Negative (Negative) 03/05/24 11:50 Urine Bilirubin Negative (Negative) 03/05/24 11:50 Urine Urobilinogen 0.2 mg/dL (Negative) 03/05/24 11:50 Ur Leukocyte Esterase Negative (Negative) 03/05/24 11:50 Urine RBC 51-100 /hpf (0-2) H 03/05/24 11:50 Urine WBC 0-5 /hpf (0-5) 03/05/24 11:50 Ur Squamous Epith Cells 6-10 /hpf (0-5) 03/05/24 11:50 Amorphous Sediment Not Reportable 03/05/24 11:50 Urine Bacteria None seen /hpf (NONE) 03/05/24 11:50 Hyaline Casts 2.46 /lpf 03/05/24 11:50 Serum Ketones Negative (Negative) 03/05/24 11:37 Hep Bs Antigen Non-reactive (Nonreactive) 03/05/24 11:37 Hep Bs Antibody 15.2 (11.5-1000) 03/05/24 11:37 Hepatitis C Antibody Non-reactive (Nonreactive) 03/05/24 11:37 All radiology interpretation(s) finalized by discharge Discharge Plan Discharge Patient Disposition: Placed in Observation Admit Provider: Austin Che Clinical Impression: Intractable nausea and vomiting, Accelerated hypertension, End stage renal disease on dialysis, Hyperkalemia Coding Level of Care Code ED Mobile Developer for Reji Chandler
[2024-03-05 11:47] LABS: Basophils # 0.1 10^3/uL (0.0-0.1); Basophils % 0.7 %; Eosinophils # 0.3 10^3/uL (0.0-0.8); Hematocrit 41.4 % (36-47); Lymphocytes # 1.3 10^3/uL (0.8-4.8); Lymphocytes % 17.8 %; Mean Corpuscular HGB Conc 31.9 g/dL (30-55); Mean Platelet Volume 9.7 fL (7.4-10.4); Monocytes # 0.6 10^3/uL (0.2-0.9); Monocytes % 7.8 %; Neutrophils # 4.92 10^3/uL (1.8-7.7); Neutrophils % 69.6 %; Nucleated Red Blood Cells % 0 %; Platelet Count 153 10^3/cmm (157-399); Red Blood Count 4.55 10^6/uL (3.85-5.65); Red Cell Distribution Width 16.7 % (12.1-15.1); White Blood Count 7.07 10^3/uL (3.29-11.43)
[2024-03-05 12:04] LABS: Ketone (Acetest) Serum Negative (Negative)
[2024-03-05 12:08] LABS: Alanine Aminotransferase 67 U/L (0-33); Albumin Level 3.7 g/dL (3.5-5.2); Alkaline Phosphatase 163 U/L (35-105); Anion Gap 19.5 (5-19); Aspartate Amino Transferase 53 U/L (0-32); Blood Urea Nitrogen 52 mg/dL (6-20); Carbon Dioxide 20 mmol/L (22-29); Chloride 101 mmol/L (98-107); Creatinine Clr Calc Pharmacy 9.6955; Globulin 3.7 g/dL (1.3-4.6); Glomerular Filtration Rate 7.6 mL/min (90-130); Glucose 284 mg/dL (65-115); Osmolality Calculated 304 mOsm/kg (285-295); Potassium 5.5 mmol/L (3.5-5.1); Sodium 135 mmol/L (136-145); Total Bilirubin 0.4 mg/dL (0.15-1.2); Total Protein 7.4 g/dL (6.6-8.7)
[2024-03-05 12:09] LABS: Bacteria Urine None Seen /hpf; Hyaline Casts Urine 2.46 /lpf; RBC Urine 51-100 /hpf (0-2); WBC Urine 0-5 /hpf (0-5)
[2024-03-05 12:10] LABS: ABG PCO2 36.3 mmHg (35-45); ABG PH Result 7.32 (7.35-7.45); Alveolar-Arterial Oxygen Gradi 0.1 mmHg (5-10); Arterial Blood Gas Hematocrit 40.6 % (37-47); Base Excess ABG -6.5 mmol/L (-2.0-2.0); Blood Gas Operator Identificat AMH; Blood Gas Sample Site Brachial, right; Blood Gas Sample Type Arterial; Carboxyhemoglobin 1.2 %THgb (0.4-20.1); HCO3 ABG 18.8 mmol/L (22-26); HGB O2 Sat 96.2 % (95-100); Ionized Calcium Level - ABG 1.2 mmol/L (1.1-1.4); Oxygen Device ROOM AIR; Oxygen Saturation ABG 98.4; PO2 FiO2 Ratio Arterial Blood 485; Potassium Level - ABG 5.3 mmol/L (3.5-5.0); Total Hemoglobin 13.3 g/dL (12-16)
[2024-03-05 12:12] LABS: Add Urine Microscopic? YES; Bilirubin Urine Negative (Negative); Blood Urine 3+ (Negative); Glucose Urine UA 3+ (Normal); Ketones Urine Negative (Negative); Leukocyte Esterase Urine Negative (Negative); Nitrate Urine Negative (Negative); Specific Gravity, Urine 1.016 (1.005-1.030); Urine Color Yellow (Yellow); Urobilinogen Urine 0.2 mg/dL (Negative); pH Urine 7.5 (5-7)
[2024-03-05 12:17] LABS: Protein Urine 3+ (Negative)
[2024-03-05 12:18] LABS: Add Urine Culture? Yes; Urine Appearance Slightly Cloudy (CLEAR)
--- NOTE | 2024-03-05 12:45 | CTR_ITS ---
PROCEDURE INFORMATION: Exam: CT Abdomen And Pelvis Without Contrast Exam date and time: 03/05/2024 2:20 PM Age: 38 years old Clinical indication: Abdominal pain; Prior surgery; Surgery date: 6+ months; Surgery type: Gb; Patient HX: Missed dialysis today TECHNIQUE: Imaging protocol: Computed tomography of the abdomen and pelvis without contrast. Axial, coronal and sagittal reformatted images were created and reviewed. Radiation optimization: All CT scans at this facility use at least one of these dose optimization techniques: automated exposure control; mA and/or kV adjustment per patient size (includes targeted exams where dose is matched to clinical indication); or iterative reconstruction. COMPARISON: CT abdomen pelvis wo con [id number] 02/28/2024 3:49 PM RADIATION DOSE METRICS: Total DLP (mGy-cm): 398 FINDINGS: Lungs: Linear stranding and groundglass at the lung bases, likely due to atelectasis and/or scarring. Right lower lobe calcified granuloma. Diaphragm: Elevated left hemidiaphragm. Liver: Unremarkable. Gallbladder and biliary ducts: Status post cholecystectomy. No biliary ductal dilatation. Pancreas: Unremarkable. Spleen: Coarse calcified splenic granulomata. Adrenal glands: Normal. No mass. Kidneys and ureters: Bilateral renal cortical scarring. No radiodense calculi. No hydronephrosis. Stomach and bowel: Mild right colonic wall thickening with associated mural and pericolonic edema. No obstruction. No pneumatosis. Appendix: Normal. Intraperitoneal space: Trace nonspecific free pelvic fluid, likely physiologic. No organized fluid collection. No free air. Vasculature: Unremarkable. No aneurysm. Lymph nodes: No pathologically enlarged lymph nodes. Urinary bladder: Mild circumferential urinary bladder wall thickening, likely secondary to underdistention. Reproductive: Unremarkable. Bones/joints: No acute osseous abnormality. Osteopenia. Mild degenerative changes. Bilateral L5 pars defects with grade 1 anterolisthesis of L5 on S1. Soft tissues: Unremarkable. CT/CT abdomen pelvis wo con [id number] IMPRESSION: 1. Mild nonspecific right-sided colitis, as described above. 2. Mild circumferential urinary bladder wall thickening, likely secondary to underdistention. 3. Additional findings, as above.
[2024-03-05] MEDS: labetalol 5 mg/mL SDV 20mL 10 MG IVP (12:58)
[2024-03-05] MEDS: ondansetron 2 mg/ML SDV 2 mL 4 MG IVP ×2 (12:59→19:07)
[2024-03-05] MEDS: hyDRALAzine 20 mg/mL INJ 1 mL IVP (12:59)
[2024-03-05] MEDS: morphine 4 mg/mL SDV 1 mL 2 MG IVP ×3 (13:00→20:45)
--- NOTE | 2024-03-05 13:16 | P.HP_ITS ---
Providers/Chief Complaint 2 Primary Care Provider: SUZANNE Dias Chief Complaint: abdominal pain - dialysis pt History of Present Illness Donita Aguilar is a 38 year old female who present to the hospital with chief complaint of right flank pain. Patient is stating that for last 1 month she has been experiencing diarrhea, she has not noticed any fever, today she was experiencing evidences as well and because of worsening of pain she decided to come to the ER. She is due for dialysis today. She is end-stage renal disease patient Saturday. She was hypotensive received IV hypertensive regimen in the ER. Her blood pressure has improved. CT abdomen pelvis consistent with right-sided colitis. Will request C. difficile panel. Patient in January had intussusception which was managed medically with NG tube and IV fluid hydration, this year she also had a cardiac stent placed She seems to have multiple comorbid conditions Review of Systems 2 Const: Denies: fever(s) Eyes: Denies: change in vision ENMT: Denies: throat pain Card: Denies: chest pain Resp: Denies: dyspnea GI: Reports: abdominal pain and nausea : Reports: flank pain Medications/Allergies Home Medications Medication Instructions Recorded Confirmed Last Taken Type blood-glucose meter,continuous #1 ea 06/12/22 03/05/24 Unknown Rx (Dexcom G6 Alarm Signal Operator) blood-glucose sensor (Dexcom G6 #3 ea 06/12/22 03/05/24 Unknown Rx Sensor device) blood-glucose transmitter (Dexcom #1 ea 06/12/22 03/05/24 Unknown Rx G6 Transmitter device) fluticasone furoate 100 1 inh inhalation DAILY PRN 09/14/23 03/05/24 09/20/23 History mcg-vilanterol 25 mcg/dose Shortness Of Breath inhalation powder (Breo Ellipta) sevelamer carbonate 800 mg tablet 800 mg PO TID #90 tabs 09/16/23 03/05/24 03/04/24 Rx atorvastatin 40 mg tablet 40 mg PO BEDTIME 11/27/23 03/05/24 03/04/24 History clonidine HCl 0.1 mg tablet See Rx Instructions .Route 11/27/23 03/05/24 Unknown History .COMPLEX PRN Blood Pressure lisinopril 40 mg tablet 40 mg PO BEDTIME 11/27/23 03/05/24 03/04/24 History aspirin 81 mg tablet,delayed 81 mg PO QAM 12/20/23 03/05/24 03/04/24 History release escitalopram oxalate 10 mg tablet 10 mg PO DAILY 12/27/23 03/05/24 03/04/24 History (Lexapro) gabapentin 100 mg capsule 100 mg PO TID 12/27/23 03/05/24 03/04/24 History insulin aspart U-100 100 unit/mL See Rx Instructions .Route 01/01/24 03/05/24 02/10/24 Rx (3 mL) subcutaneous pen (Novolog .COMPLEX #15 mL FlexPen U-100 Insulin aspart) bumetanide 1 mg tablet 1 mg PO DAILY 02/11/24 03/05/24 Unknown History ticagrelor 90 mg tablet (Brilinta) 90 mg PO BID 02/11/24 03/05/24 03/04/24 History amlodipine 10 mg tablet 10 mg PO DAILY 30 days #30 tabs 02/16/24 03/05/24 03/04/24 Rx carvedilol 25 mg tablet 25 mg PO BID 30 days #60 tabs 02/16/24 03/05/24 03/05/24 Rx hydralazine 50 mg tablet 50 mg PO TID 30 days #90 tabs 02/16/24 03/05/24 03/04/24 Rx Allergies Allergy/AdvReac Type Severity Reaction Status Date / Time acetaminophen AdvReac Mild ADR-Gastrointestinal Verified 03/05/24 11:00 Upset PFSH Acute 2 PFSH: Medical History ESRD (end stage renal disease) Transaminitis Intractable nausea and vomiting Hyperlipidemia HTN (hypertension) CHF (congestive heart failure), NYHA class III Pulmonary hypertension CAD (coronary artery disease) Neurogenic bladder COVID-19 Tobacco dependence Drug abuse Anemia Community acquired pneumonia Esophagitis Long-term insulin use History of pancreatitis Celiac disease Recurrent UTI Non-alcoholic fatty liver disease Arnold-Chiari malformation Diabetic gastroparesis -continue Reglan Diabetic neuropathy associated with type 1 diabetes mellitus Headache, common migraine, intractable, with status migrainosus Pleural effusion 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 History of lung surgery -s/p LLL lobectomy secondary to cavitary pneumonia (2017) History of endoscopy History of cholecystectomy Family History Grandfather Diabetes Mother CAD (coronary artery disease) Diabetes Brother Acute lymphoblastic leukemia (ALL) in child Other Heart disease Hypertension Social History Smoking and tobacco/nicotine status: former use of tobacco/nicotine Quit status (tobacco/nicotine): has quit using Former quit date comment: She previously smoked <1/2 PPD, quit July 2023. Second hand smoke exposure: Yes Alcohol intake: never Substance/Drug Use: current Household members: children Housing: House Marital status: Single Current occupational status: unemployed Vitals/I&O/Wt Last Vital Signs Temp 97.8 F 03/05/24 10:56 Pulse 72 03/05/24 13:14 Resp 23 H 03/05/24 13:02 BP 139/81 03/05/24 13:14 Pulse Ox 98 03/05/24 13:14 O2 Del Method Room Air 03/05/24 13:14 Weight last 48 hrs Weight 55.338 kg Physical Exam 2 Narrative: Looks dehydrated Right-sided lower quadrant pain Awake and alert Hemodynamically stable GCS 15 Nonfocal neuroexam Currently on room air Dialysis catheter right chest NIH 0 S1, S2 Data 03/05/24 11:37 03/05/24 11:37 A&P Assessment and plan (1) Diabetes mellitus: Qualifiers: Diabetes mellitus complication detail: with other circulatory complications Diabetes mellitus complication status: with circulatory complication Diabetes mellitus type: type 1 Qualified Code(s): E10.59 - Type 1 diabetes mellitus with other circulatory complications (2) HTN (hypertension): Qualifiers: Hypertension type: primary hypertension Qualified Code(s): I10 - Essential (primary) hypertension (3) Accelerated hypertension: (4) Abdominal pain: (5) End stage renal disease on dialysis: (6) COPD (chronic obstructive pulmonary disease): (7) Diabetic neuropathy associated with type 1 diabetes mellitus: Qualifiers: Diabetes mellitus complication detail: diabetic polyneuropathy Qualified Code(s): E10.42 - Type 1 diabetes mellitus with diabetic polyneuropathy (8) Colitis: Plan Right-sided colitis Rule out C. difficile History of intussusception CT abdomen pelvis did not show intussusception or SBO I will keep patient on clear liquid diet Will keep her on morphine Start Flagyl and cefepim Hypertensive urgency Improved with IV antibiotic regimen in the ER Continue oral antihypertensive regimen End-stage renal disease Saturday Dialysis due today Nephro consulted History of established coronary disease with stent placement this year, continue antiplatelet therapy Clear liquid diet Full code DVT prophylaxis: Heparin Attestations 2 Medical Necessity Statement*: More than 2 midnights anticipated Diagnoses Type 1 diabetes mellitus with other circulatory complication E10.59 Diabetes mellitus complication detail: with other circulatory complications Diabetes mellitus complication status: with circulatory complication Diabetes mellitus type: type 1 Primary hypertension I10 Hypertension type: primary hypertension Accelerated hypertension I10 Abdominal pain R10.9 End stage renal disease on dialysis N18.6; Z99.2 COPD (chronic obstructive pulmonary disease) J44.9 Diabetic polyneuropathy associated with type 1 diabetes mellitus E10.42 Diabetes mellitus complication detail: diabetic polyneuropathy Colitis K52.9
--- NOTE | 2024-03-05 13:47 | P.CONIM_ITS ---
Providers/Reason For Consult 2 Consulting Physician/Specialty*: Simba Vail MD / telenephrology Reason for Consult*: EESRD care Requesting Physician: Dr Yenni Che Primary Care Provider: SUZANNE Dias History of Present Illness History of Present Illness Donita Aguilar is a 38 year old female history of end-stage renal disease on dialysis Saturday and Saturday. Coronary artery disease, hypertension, gastroparesis, retroperitoneal lymphadenopathy, intussusception of the small bowel, anemia, grade 3 of 4 diastolic dysfunction severely elevated filling pressures normal EF. The patient is here with abdominal pain that radiates to her back again. She has nausea she has headaches she has no shortness of breath she missed dialysis. She denies chest pain at this time. She has diarrhea. No new leg pains. Positive neuropathy Review of Systems 2 Narrative: Weak nausea abdominal pain back pain diarrhea edema shortness of breath positive neuropathy. Rest review of systems is negative except for poor vision Medications/Allergies Home Medications Medication Instructions Recorded Confirmed Last Taken Type blood-glucose meter,continuous #1 ea 06/12/22 02/20/24 Unknown Rx (Dexcom G6 Medical Resident) blood-glucose sensor (Dexcom G6 #3 ea 06/12/22 02/20/24 Unknown Rx Sensor device) blood-glucose transmitter (Dexcom #1 ea 06/12/22 02/20/24 Unknown Rx G6 Transmitter device) fluticasone furoate 100 1 inh inhalation DAILY PRN 09/14/23 02/20/24 09/20/23 History mcg-vilanterol 25 mcg/dose Shortness Of Breath inhalation powder (Breo Ellipta) sevelamer carbonate 800 mg tablet 800 mg PO TID #90 tabs 09/16/23 02/20/24 02/11/24 Rx atorvastatin 40 mg tablet 40 mg PO BEDTIME 11/27/23 02/20/24 02/10/24 History clonidine HCl 0.1 mg tablet See Rx Instructions .Route 11/27/23 02/20/24 Unknown History .COMPLEX PRN Blood Pressure lisinopril 40 mg tablet 40 mg PO BEDTIME 11/27/23 02/20/24 02/10/24 History aspirin 81 mg tablet,delayed 81 mg PO QAM 12/20/23 02/20/24 01/06/24 History release escitalopram oxalate 10 mg tablet 10 mg PO DAILY 12/27/23 02/20/24 02/11/24 History (Lexapro) gabapentin 100 mg capsule 100 mg PO TID 12/27/23 02/20/24 02/11/24 History insulin aspart U-100 100 unit/mL See Rx Instructions .Route 01/01/24 02/20/24 02/10/24 Rx (3 mL) subcutaneous pen (Novolog .COMPLEX #15 mL FlexPen U-100 Insulin aspart) bumetanide 1 mg tablet 1 mg PO DAILY 02/11/24 02/20/24 Unknown History ticagrelor 90 mg tablet (Brilinta) 90 mg PO BID 02/11/24 02/20/24 02/11/24 History amlodipine 10 mg tablet 10 mg PO DAILY 30 days #30 tabs 02/16/24 02/20/24 Unknown Rx carvedilol 25 mg tablet 25 mg PO BID 30 days #60 tabs 02/16/24 02/20/24 Unknown Rx hydralazine 50 mg tablet 50 mg PO TID 30 days #90 tabs 02/16/24 02/20/24 Unknown Rx Allergies Allergy/AdvReac Type Severity Reaction Status Date / Time acetaminophen AdvReac Mild ADR-Gastrointestinal Verified 03/05/24 11:00 Upset PFSH Acute 2 PFSH: Medical History ESRD (end stage renal disease) Transaminitis Intractable nausea and vomiting Hyperlipidemia HTN (hypertension) CHF (congestive heart failure), NYHA class III Pulmonary hypertension CAD (coronary artery disease) Neurogenic bladder COVID-19 Tobacco dependence Drug abuse Anemia Community acquired pneumonia Esophagitis Long-term insulin use History of pancreatitis Celiac disease Recurrent UTI Non-alcoholic fatty liver disease Arnold-Chiari malformation Diabetic gastroparesis -continue Reglan Diabetic neuropathy associated with type 1 diabetes mellitus Headache, common migraine, intractable, with status migrainosus Pleural effusion 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 History of lung surgery -s/p LLL lobectomy secondary to cavitary pneumonia (2017) History of endoscopy History of cholecystectomy Family History Grandfather Diabetes Mother CAD (coronary artery disease) Diabetes Brother Acute lymphoblastic leukemia (ALL) in child Other Heart disease Hypertension Social History Smoking and tobacco/nicotine status: former use of tobacco/nicotine Quit status (tobacco/nicotine): has quit using Former quit date comment: She previously smoked <1/2 PPD, quit July 2023. Second hand smoke exposure: Yes Alcohol intake: never Substance/Drug Use: current Household members: children Housing: House Marital status: Single Current occupational status: unemployed Vitals/I&O/Wt Last Vital Signs Temp 97.8 F 03/05/24 10:56 Pulse 72 03/05/24 13:14 Resp 23 H 03/05/24 13:02 BP 139/81 03/05/24 13:14 Pulse Ox 98 03/05/24 13:14 O2 Del Method Room Air 03/05/24 13:14 Weight last 48 hrs Weight 55.338 kg Physical Exam 2 Narrative: No apparent respiratory distress lying in bed. After receiving morphine. Vital signs stable. HEENT normocephalic atraumatic neck is supple lungs are clear. Heart is regular abdomen is soft tender hypoactive bowel sounds. Remedies have no edema. Patient has a right anterior chest wall permacath. Neuro awake alert oriented x 3 positive neuropathy. Patient was seen and examined using audiovisual equipment with the aid of a nurse. Data 03/05/24 11:37 03/05/24 11:37 A&P Assessment and plan (1) End stage renal disease on dialysis: 38-year-old lady ESRD diabetic gastroparesis history of small bowel intussusception, coronary artery disease, hypertension. Patient had recurrent episodes of abdominal and back pain. Patient is status post a noncontrast CT scan on February 28, 2024 showing nonspecific bladder wall thickening question of cystitis, atrophic pancreas no kidney stones or hydronephrosis. She had a CT scan of the abdomen and pelvis with contrast on February 14, 2024. Patient is here again with abdominal pain and nausea. Patient is recently seen by cardiology, Dr. Elza Dillon. 1. Abdominal pain chest pain as per cardiology and medicine. Please note that patient had scarred kidneys question of cystitis. Urinalysis reviewed 3+ protein 2+ glucose 3+ blood negative ketones, 51-100 RBCs negative leuk esterase negative white cells. This seems atypical for an infection. Given this abnormal finding on her bladder CT scan and hematuria. Please ensure the patient is seen by urology. This can be done as an inpatient or soon after discharge. 2. Blood pressure okay. 3. ESRD with diabetes and pain. At this time we will attempt dialysis today for 3-1/2 hours on a 2K bath and times remove 2 L. 4. Hemoglobin excellent patient may be volume depleted. No Epogen. 5. Acid-base status patient's pH is 7.32 with a metabolic acidosis likely of ESRD with respiratory compensation 6. Mild hyperkalemia monitor with dialysis today. 7. Diabetic control. Medications reviewed. Will follow the patient along with you. Informed consent for telehealth was obtained by the patient. Informed consent for dialysis was obtained. Plan Hemodialysis today. Further workup as per medicine Consult Attestations 2 Medical Necessity Statement: Abdominal pain, ESRD, diabetes Time Spent in Patient Care: Greater than 35 minutes (>than 50% of time spent in counselling and/or direct pt care on unit) . Coding Level of Care Code Acute Code for [facility] Diagnoses End stage renal disease on dialysis N18.6; Z99.2
--- NOTE | 2024-03-05 13:48 | PC.NURSE ---
this nurse assisted tele-nephrology call, per physician pt to receive dialysis today.
[2024-03-05 14:01] LABS: HCG, Serum Qual Negative (Negative)
[2024-03-05 14:57] LABS: Hepatitis B Surface AB 15.2 (11.5-1000); Hepatitis C Virus Antibody Non-Reactive (Nonreactive)
[2024-03-05 15:26] LABS: Hepatitis B Surface Antigen Non-Reactive (Nonreactive)
--- NOTE | 2024-03-05 15:33 | PC.NURSE ---
report called to Alexa on CSU, no further questions, instructed to take pt to dialysis room on Med-Surg.
--- NOTE | 2024-03-05 15:37 | PC.NURSE ---
pt b/p 96/65, held 2mg Morphine. Dr. Che notified.
[2024-03-05] MEDS: heparin, porcine 1,000 unit/mL INJ 10 mL 1000 UNIT IV (15:55)
--- NOTE | 2024-03-05 16:17 | PC.HD ---
Electronic consent for HD signed by patient. Heparin 1000 units loading dose administered via arterial port of HD catheter at 1555 per machine heel seat fitter's orders. Patient c/o 03/03 stomach pain, requesting pain medication. Primary RN Alexa notified. Patient aware dialysis will shorten the amount of time pain medication will be effective.
--- NOTE | 2024-03-05 19:38 | PC.HD ---
Patient with wildly fluctuating BPs towards end of treatment. High BPs causing N/V and headache. Treatment terminated 8 minutes early due to SBP of over 200. Patient currently lying quietly c/o 8/ headache.
[2024-03-05 20:41] LABS: Glucose Point of Care 159 mg/dL (70-110)
[2024-03-05] MEDS: carvedilol 25 mg Tablet PO (20:45)
[2024-03-05] MEDS: sevelamer 800 mg Tablet PO (20:46)
[2024-03-05] MEDS: ticagrelor 90 mg Tablet PO (20:46)
[2024-03-05] MEDS: lisinopril 20 mg Tablet 40 MG PO (20:46)
--- NOTE | 2024-03-05 22:10 | PC.NURSE ---
the patient arrived back on floor around 1934 from dialysis at 0 this nurse contacted the MD due to patients blood pressure dropping from 143/90 to 105/67 with 40mg of Lisinopril given around 2029, there was an order of 50mg of Hydralazine to be given, MD order to hold hydralazine due to drop with lisinopril. Hydralazine was held.
[2024-03-05] MEDS: metroNIDAZOLE IV 500 MG/100 ML PREMIX 100 MG IV (23:59)
[2024-03-06] VITALS (14 sets, daily range): BP systolic 109–164; BP diastolic 54–102; PULSE 66–74; RESP 12–22; TEMP 36.6–37.1; O2SAT 96–98
[2024-03-06] MEDS: morphine 4 mg/mL SDV 1 mL 2 MG IVP ×6 (01:05→23:49)
[2024-03-06] MEDS: ondansetron 2 mg/ML SDV 2 mL 4 MG IVP ×2 (01:07→08:44)
[2024-03-06] MEDS: cefepime 2,000 MG in sodium chloride 0.9% (plus) 50 ML 100 MG IV ×2 (03:17→14:47)
[2024-03-06] MEDS: heparin 5,000 unit/mL INJ 1 mL 5000 UNIT SUBCUT ×2 (03:19→14:46)
[2024-03-06 03:59] LABS: Basophils # 0.1 10^3/uL (0.0-0.1); Basophils % 0.9 %; Eosinophils # 0.1 10^3/uL (0.0-0.8); Eosinophils % 2.1 %; Hematocrit 40.4 % (36-47); Lymphocytes # 1.3 10^3/uL (0.8-4.8); Lymphocytes % 18.7 %; Mean Corpuscular HGB Conc 30.9 g/dL (30-55); Mean Corpuscular Hemoglobin 29.5 pg (27-33); Mean Corpuscular Volume 95.3 fl (85-98); Mean Platelet Volume 10.1 fL (7.4-10.4); Monocytes # 0.5 10^3/uL (0.2-0.9); Monocytes % 7.5 %; Neutrophils % 70.7 %; Nucleated Red Blood Cells % 0 %; Platelet Count 140 10^3/cmm (157-399); Red Blood Count 4.24 10^6/uL (3.85-5.65); Red Cell Distribution Width 17.2 % (12.1-15.1); White Blood Count 6.79 10^3/uL (3.29-11.43)
[2024-03-06 04:19] LABS: Alanine Aminotransferase 56 U/L (0-33); Albumin Level 3.2 g/dL (3.5-5.2); Alkaline Phosphatase 148 U/L (35-105); Aspartate Amino Transferase 40 U/L (0-32); Blood Urea Nitrogen 22 mg/dL (6-20); Calcium 8.7 mg/dL (8.5-10.5); Carbon Dioxide 21 mmol/L (22-29); Chloride 102 mmol/L (98-107); Creatinine Clr Calc Pharmacy 15.8189; Globulin 3.4 g/dL (1.3-4.6); Glomerular Filtration Rate 13.4 mL/min (90-130); Glucose 168 mg/dL (65-115); Osmolality Calculated 293 mOsm/kg (285-295); Phosphorus 4.9 mg/dL (2.5-4.5); Sodium 138 mmol/L (136-145); Total Bilirubin 0.3 mg/dL (0.15-1.2); Total Protein 6.6 g/dL (6.6-8.7)
[2024-03-06 04:26] LABS: Anion Gap 19.3 (5-19); Potassium 4.3 mmol/L (3.5-5.1)
[2024-03-06 04:34] LABS: Magnesium 1.9 mg/dL (1.7-2.3)
[2024-03-06] MEDS: metroNIDAZOLE IV 500 MG/100 ML PREMIX 100 MG IV ×3 (05:58→22:27)
[2024-03-06 06:32] LABS: Glucose Point of Care 148 mg/dL (70-110)
[2024-03-06] MEDS: sevelamer 800 mg Tablet PO (08:39)
[2024-03-06] MEDS: hyDRALAzine 50 mg Tablet PO ×2 (08:42→14:46)
[2024-03-06] MEDS: amlodipine 10 mg Tablet PO (08:42)
[2024-03-06] MEDS: aspirin 81 mg EC Tablet PO (08:42)
[2024-03-06] MEDS: sennosides-docusate Tablet 1 TAB PO (08:42)
[2024-03-06] MEDS: carvedilol 25 mg Tablet PO ×2 (08:42→17:48)
[2024-03-06] MEDS: ticagrelor 90 mg Tablet PO ×2 (08:43→17:48)
[2024-03-06] MEDS: insulin lispro 100 unit/1 mL SUBCUT ×2 (08:43→17:48)
--- NOTE | 2024-03-06 08:51 | P.PN_ITS ---
Subjective 2 Subjective: feels better. dec nausea. no benavides or diarrhea. dec abd pain improving appetite. Medications: Reviewed: Yes Medication Review Details: Current Medications Acetaminophen (Acetaminophen 500 Mg Tablet) 500 mg PO Q4H PRN PRN Reason: fever Albuterol/Ipratropium (Ipratropium-Albuterol 3 Ml Neb) 3 ml INHALATION Q6H PRN PRN Reason: SHORTNESS OF BREATH Amlodipine Besylate (Amlodipine 10 Mg Tablet) 10 mg PO DAILY [facility] Last Admin: 03/06/24 08:42 Dose: 10 mg Aspirin (Aspirin 81 Mg Ec Tablet) 81 mg PO DAILY [facility] Last Admin: 03/06/24 08:42 Dose: 81 mg Carvedilol (Carvedilol 25 Mg Tablet) 25 mg PO BID [facility] Last Admin: 03/06/24 08:42 Dose: 25 mg Clonidine HCl (Clonidine 0.1 Mg Tablet) 0.1 mg PO PRN PRN PRN Reason: Blood Pressure Glucagon (Glucagon 1 Mg/Ml Kit 1 Ml) 1 mg IM ONCE PRN; Protocol PRN Reason: Adult Acute Hypoglycemia Nursing Prot. Heparin Sodium (Porcine) (Heparin 5,000 Unit/Ml Inj 1 Ml) 5,000 unit SUBCUT Q12H [facility] Last Admin: 03/06/24 03:19 Dose: 5,000 unit Hydralazine HCl (Hydralazine 50 Mg Tablet) 50 mg PO TID [facility] Last Admin: 03/06/24 08:42 Dose: 50 mg Nicardipine/Sodium Chloride (Cardene) 20 mg in 200 mls @ 0 mls/hr IV .Q0M [facility]; Protocol Metronidazole (Flagyl Iv) 500 mg in 100 mls @ 100 mls/hr IV Q8H [facility]; Protocol Last Admin: 03/06/24 05:58 Dose: 100 mls/hr Cefepime HCl 2,000 mg/ Sodium (Chloride) 50 mls @ 100 mls/hr IV Q12H [facility]; Protocol Last Infusion: 03/06/24 04:07 Dose: Infused Dextrose (D5w) 500 mls @ 0 mls/hr IV ONCE PRN; Protocol PRN Reason: Adult Acute Hypoglycemia Prot Dextrose (D10w) 125 mls @ 750 mls/hr IV PRN PRN; Protocol PRN Reason: Adult Acute Hypoglycemia Nursing Protocol Dextrose (D10w) 250 mls @ 1,000 mls/hr IV PRN PRN; Protocol PRN Reason: Adult Acute Hypoglycemia Nursing Protocol Insulin Human Lispro (Insulin Lispro 100 Unit/1 Ml) 0 unit SUBCUT TIDWM [facility]; Protocol Last Admin: 03/06/24 08:43 Dose: 4 unit Lisinopril (Lisinopril 20 Mg Tablet) 40 mg PO BEDTIME [facility] Last Admin: 03/05/24 20:46 Dose: 40 mg Morphine Sulfate (Morphine 4 Mg/Ml Sdv 1 Ml) 2 mg IVP Q4H PRN PRN Reason: SEVERE PAIN Last Admin: 03/06/24 05:57 Dose: 2 mg Ondansetron HCl (Ondansetron 2 Mg/Ml Sdv 2 Ml) 4 mg IVP Q6H PRN PRN Reason: NAUSEA AND VOMITING Last Admin: 03/06/24 08:44 Dose: 4 mg Senna/Docusate Sodium (Sennosides-Docusate Tablet) 1 tab PO DAILY [facility] Last Admin: 03/06/24 08:42 Dose: 1 tab Sevelamer Carbonate (Sevelamer 800 Mg Tablet) 800 mg PO TID [facility] Last Admin: 03/06/24 08:39 Dose: 800 mg Ticagrelor (Ticagrelor 90 Mg Tablet) 90 mg PO BID [facility] Last Admin: 03/06/24 08:43 Dose: 90 mg Vitals/I&O/Wt Last Vital Signs Temp 98.6 F 03/06/24 04:00 Pulse 70 03/06/24 08:33 Resp 16 03/06/24 08:33 BP 135/84 03/06/24 04:07 Pulse Ox 98 03/06/24 08:33 O2 Del Method Room Air 03/06/24 08:33 03/05/24 03/06/24 03/06/24 22:59 06:59 14:59 Intake Total 240 / 240 630 / 870 Balance 240 / 240 630 / 870 Weight last 48 hrs Weight 63.2 kg Weight 55.338 kg Weight 55.338 kg Physical Exam 2 Narrative: No apparent respiratory distress lying in bed. Vital signs stable. HEENT normocephalic atraumatic neck is supple lungs are clear. Heart is regular +s1, s2 abdomen is soft tender hyperactive bowel sounds. extremedies have no edema. Patient has a right anterior chest wall permacath. Neuro awake alert oriented x 3 positive neuropathy. Patient was seen and examined using audiovisual equipment with the aid of a nurse. Data 03/06/24 03:38 03/06/24 03:38 A&P Assessment and plan (1) End stage renal disease on dialysis: 38-year-old lady ESRD diabetic gastroparesis history of small bowel intussusception, coronary artery disease, hypertension. Patient had recurrent episodes of abdominal and back pain. Patient is status post a noncontrast CT scan on February 28, 2024 showing nonspecific bladder wall thickening question of cystitis, atrophic pancreas no kidney stones or hydronephrosis. She had a CT scan of the abdomen and pelvis with contrast on February 14, 2024. Patient is here again with abdominal pain and nausea. Patient is recently seen by cardiology, Dr. Elza Carranza. 1. Abdominal pain chest pain as per cardiology and medicine. Please note that patient had scarred kidneys question of cystitis. Urinalysis reviewed 3+ protein 2+ glucose 3+ blood negative ketones, 51-100 RBCs negative leukesterase negative white cells. This seems atypical for an infection. Given this abnormal finding on her bladder CT scan and hematuria. Please ensure the patient is seen by urology. This can be done as an inpatient or soon after discharge. 2. Blood pressure okay. 3. ESRD - HD TTS 4. DM per PMD 5. Hemoglobin excellent patient may be volume depleted. No Epogen. 6. Acid-base status patient's pH is 7.32 with a metabolic acidosis likely of ESRD with respiratory compensation Medications reviewed. Will follow the patient along with you. Informed consent for telehealth was obtained by the patient. Informed consent for dialysis was obtained. Plan Hemodialysis TTHSat, Further workup as per medicine Attestations 2 Medical Necessity Statement*: per medicine Time Spent in Patient Care: 16 - 35 minutes (>than 50% of time sp ent in counselling and/or direct pt care on unit) . Coding Level of Care Code Acute Code for Chg Fwd Diagnoses End stage renal disease on dialysis N18.6; Z99.2
--- NOTE | 2024-03-06 09:43 | P.PN_ITS ---
Subjective 2 Subjective: No bowel movement since admission No vomiting, afebrile no leukocytosis Patient tolerated clear liquids, will advance to renal diet today Patient got dialyzed yesterday Endorsing feeling slightly better today Vitals/I&O/Wt Last Vital Signs Temp 98 F 03/06/24 08:00 Pulse 70 03/06/24 08:33 Resp 16 03/06/24 08:33 BP 149/89 03/06/24 08:00 Pulse Ox 98 03/06/24 08:33 O2 Del Method Room Air 03/06/24 08:33 03/05/24 03/06/24 03/06/24 22:59 06:59 14:59 Intake Total 240 / 240 630 / 870 100 / 100 Balance 240 / 240 630 / 870 100 / 100 Weight last 48 hrs Weight 63.2 kg Weight 55.338 kg Weight 55.338 kg Physical Exam 2 Narrative: Patient is laying supine Abdomen soft on palpation Tender on deep palpation right lower quadrant Awake and alert Signs of dehydration not present today Awake and alert Pleasant cooperative No active emesis Currently on room air Hemodynamically stable No signs of hypertensive urgency Data 03/06/24 03:38 03/06/24 03:38 Micro: Microbiology 03/05/24 11:50 Urine Culture - Preliminary Urine,Clean Catch Gram Negative Rods A&P Assessment and plan (1) End stage renal disease on dialysis: (2) Diabetes mellitus: Qualifiers: Diabetes mellitus complication detail: with other circulatory complications Diabetes mellitus complication status: with circulatory complication Diabetes mellitus type: type 1 Qualified Code(s): E10.59 - Type 1 diabetes mellitus with other circulatory complications (3) HTN (hypertension): Qualifiers: Hypertension type: primary hypertension Qualified Code(s): I10 - Essential (primary) hypertension (4) Accelerated hypertension: (5) Abdominal pain: (6) COPD (chronic obstructive pulmonary disease): (7) Diabetic neuropathy associated with type 1 diabetes mellitus: Qualifiers: Diabetes mellitus complication detail: diabetic polyneuropathy Qualified Code(s): E10.42 - Type 1 diabetes mellitus with diabetic polyneuropathy (8) Colitis: Plan 38-year-old lady ESRD diabetic gastroparesis history of small bowel intussusception, coronary artery disease, hypertension. Patient had recurrent episodes of abdominal and back pain. Patient is status post a noncontrast CT scan on February 28, 2024 showing nonspecific bladder wall thickening question of cystitis, atrophic pancreas no kidney stones or hydronephrosis. She had a CT scan of the abdomen and pelvis with contrast on February 14, 2024. Patient is here again with abdominal pain and nausea. Right-sided colitis C. difficile needs to be ruled out Continue antibiotics Advance diet from clear liquids to renal No active emesis Abdominal pain has slightly improved Recent intussusception, closely monitor in case of recurrent nausea vomiting pressure will stay low to get another abdominal imaging Her recent intussusception was treated conservatively with NG tube Hypertensive urgency: Improved continue home antihypertensive regimen at this point End-stage renal disease Saturday Appreciate nephro recommendations Established coronary disease no active chest pain, continue antiplatelet therapy dual antiplatelet aspirin and Brilinta Advance diet to renal Full code DVT prophylaxis: Heparin Patient currently living with her mother Disposition: Home likely this weekend if remains stable Attestations 2 Medical Necessity Statement*: Continue medical management Diagnoses End stage renal disease on dialysis N18.6; Z99.2 Type 1 diabetes mellitus with other circulatory complication E10.59 Diabetes mellitus complication detail: with other circulatory complications Diabetes mellitus complication status: with circulatory complication Diabetes mellitus type: type 1 Primary hypertension I10 Hypertension type: primary hypertension Accelerated hypertension I10 Abdominal pain R10.9 COPD (chronic obstructive pulmonary disease) J44.9 Diabetic polyneuropathy associated with type 1 diabetes mellitus E10.42 Diabetes mellitus complication detail: diabetic polyneuropathy Colitis K52.9
[2024-03-06 12:49] LABS: Glucose Point of Care 82 mg/dL (70-110)
--- NOTE | 2024-03-06 12:54 | PC.SOCIAL ---
IMM updated. Updated pt on IMM. No questions voiced. Provided pt a copy. Initialed, dated, & timed a copy & placed in chart.
[2024-03-06 17:20] LABS: Glucose Point of Care 155 mg/dL (70-110)
[2024-03-06 20:31] LABS: Glucose Point of Care 101 mg/dL (70-110)
[2024-03-06] MEDS: lisinopril 20 mg Tablet 40 MG PO (21:04)
--- NOTE | 2024-03-06 21:05 | PC.NURSE ---
notified Dr Carrera of bp 99/59, order to hold hydralazine
[2024-03-07] VITALS (16 sets, daily range): BP systolic 103–149; BP diastolic 56–78; PULSE 61–69; RESP 12–20; TEMP 36.4–36.9; O2SAT 96–98; BMI 26.4
[2024-03-07] MEDS: heparin 5,000 unit/mL INJ 1 mL 5000 UNIT SUBCUT ×2 (03:22→18:25)
[2024-03-07] MEDS: morphine 4 mg/mL SDV 1 mL 2 MG IVP ×5 (03:49→23:46)
[2024-03-07 03:55] LABS: Basophils # 0.1 10^3/uL (0.0-0.1); Basophils % 0.9 %; Eosinophils # 0.3 10^3/uL (0.0-0.8); Eosinophils % 5.8 %; Hematocrit 39.8 % (36-47); Lymphocytes # 1.6 10^3/uL (0.8-4.8); Lymphocytes % 28.7 %; Mean Corpuscular HGB Conc 30.7 g/dL (30-55); Mean Corpuscular Hemoglobin 29.1 pg (27-33); Mean Platelet Volume 10.2 fL (7.4-10.4); Monocytes # 0.6 10^3/uL (0.2-0.9); Monocytes % 9.8 %; Neutrophils # 3.12 10^3/uL (1.8-7.7); Neutrophils % 54.6 %; Nucleated Red Blood Cells % 0 %; Platelet Count 141 10^3/cmm (157-399); Red Blood Count 4.19 10^6/uL (3.85-5.65); Red Cell Distribution Width 17.3 % (12.1-15.1); White Blood Count 5.71 10^3/uL (3.29-11.43)
[2024-03-07 04:13] LABS: Alanine Aminotransferase 48 U/L (0-33); Albumin Level 3.4 g/dL (3.5-5.2); Alkaline Phosphatase 129 U/L (35-105); Anion Gap 17.1 (5-19); Aspartate Amino Transferase 35 U/L (0-32); Blood Urea Nitrogen 33 mg/dL (6-20); Calcium 8.7 mg/dL (8.5-10.5); Carbon Dioxide 25 mmol/L (22-29); Chloride 102 mmol/L (98-107); Creatinine Clr Calc Pharmacy 12.0634; Globulin 3.2 g/dL (1.3-4.6); Glomerular Filtration Rate 9.1 mL/min (90-130); Glucose 202 mg/dL (65-115); Magnesium 2.1 mg/dL (1.7-2.3); Osmolality Calculated 303 mOsm/kg (285-295); Phosphorus 6.2 mg/dL (2.5-4.5); Potassium 4.1 mmol/L (3.5-5.1); Sodium 140 mmol/L (136-145); Total Bilirubin 0.2 mg/dL (0.15-1.2); Total Protein 6.6 g/dL (6.6-8.7)
[2024-03-07 06:20] LABS: Glucose Point of Care 193 mg/dL (70-110)
[2024-03-07] MEDS: insulin lispro 100 unit/1 mL SUBCUT ×2 (07:30→19:06)
[2024-03-07] MEDS: metroNIDAZOLE IV 500 MG/100 ML PREMIX 100 MG IV ×3 (07:30→23:39)
[2024-03-07] MEDS: ondansetron 2 mg/ML SDV 2 mL 4 MG IVP ×3 (09:05→15:31)
[2024-03-07] MEDS: sevelamer 800 mg Tablet PO (09:06)
[2024-03-07] MEDS: aspirin 81 mg EC Tablet PO (09:06)
[2024-03-07] MEDS: hyDRALAzine 25 mg Tablet PO (09:06)
[2024-03-07] MEDS: ticagrelor 90 mg Tablet PO ×2 (09:06→18:26)
[2024-03-07] MEDS: amlodipine 5 mg Tablet PO (09:06)
[2024-03-07] MEDS: carvedilol 25 mg Tablet PO ×2 (09:06→18:26)
--- NOTE | 2024-03-07 09:15 | PM.PN ---
Subjective Subjective: The patient was seen and examined. The patient is feeling better however still has nausea vomiting abdominal pain. The patient is starting to eat. Has no shortness of breath has no chest pain. Medications: Reviewed: Yes Medication Review Details: Current Medications Acetaminophen (Acetaminophen 500 Mg Tablet) 500 mg PO Q4H PRN PRN Reason: fever Albuterol/Ipratropium (Ipratropium-Albuterol 3 Ml Neb) 3 ml INHALATION Q6H PRN PRN Reason: SHORTNESS OF BREATH Amlodipine Besylate (Amlodipine 5 Mg Tablet) 5 mg PO DAILY [facility] Last Admin: 03/07/24 09:06 Dose: 5 mg Aspirin (Aspirin 81 Mg Ec Tablet) 81 mg PO DAILY [facility] Last Admin: 03/07/24 09:06 Dose: 81 mg Carvedilol (Carvedilol 25 Mg Tablet) 25 mg PO BID [facility] Last Admin: 03/07/24 09:06 Dose: 25 mg Clonidine HCl (Clonidine 0.1 Mg Tablet) 0.1 mg PO PRN PRN PRN Reason: Blood Pressure Glucagon (Glucagon 1 Mg/Ml Kit 1 Ml) 1 mg IM ONCE PRN; Protocol PRN Reason: Adult Acute Hypoglycemia Nursing Prot. Heparin Sodium (Porcine) (Heparin 5,000 Unit/Ml Inj 1 Ml) 5,000 unit SUBCUT Q12H [facility] Last Admin: 03/07/24 03:22 Dose: 5,000 unit Hydralazine HCl (Hydralazine 25 Mg Tablet) 25 mg PO TID [facility] Last Admin: 03/07/24 09:06 Dose: 25 mg Metronidazole (Flagyl Iv) 500 mg in 100 mls @ 100 mls/hr IV Q8H [facility]; Protocol Last Admin: 03/07/24 07:30 Dose: 100 mls/hr Dextrose (D5w) 500 mls @ 0 mls/hr IV ONCE PRN; Protocol PRN Reason: Adult Acute Hypoglycemia Prot Dextrose (D10w) 125 mls @ 750 mls/hr IV PRN PRN; Protocol PRN Reason: Adult Acute Hypoglycemia Nursing Protocol Dextrose (D10w) 250 mls @ 1,000 mls/hr IV PRN PRN; Protocol PRN Reason: Adult Acute Hypoglycemia Nursing Protocol Cefepime HCl 1,000 mg/ Sodium (Chloride) 50 mls @ 100 mls/hr IV Q24H [facility] Insulin Human Lispro (Insulin Lispro 100 Unit/1 Ml) 0 unit SUBCUT TIDWM [facility]; Protocol Last Admin: 03/07/24 07:30 Dose: 6 unit Lisinopril (Lisinopril 20 Mg Tablet) 40 mg PO BEDTIME [facility] Last Admin: 03/06/24 21:04 Dose: 40 mg Morphine Sulfate (Morphine 4 Mg/Ml Sdv 1 Ml) 2 mg IVP Q4H PRN PRN Reason: SEVERE PAIN Last Admin: 03/07/24 08:59 Dose: 2 mg Ondansetron HCl (Ondansetron 2 Mg/Ml Sdv 2 Ml) 4 mg IVP Q6H PRN PRN Reason: NAUSEA AND VOMITING Last Admin: 03/07/24 09:05 Dose: 4 mg Senna/Docusate Sodium (Sennosides-Docusate Tablet) 1 tab PO DAILY [facility] Last Admin: 03/07/24 09:06 Dose: Not Given Sevelamer Carbonate (Sevelamer 800 Mg Tablet) 800 mg PO TID [facility] Last Admin: 03/07/24 09:06 Dose: 800 mg Ticagrelor (Ticagrelor 90 Mg Tablet) 90 mg PO BID [facility] Last Admin: 03/07/24 09:06 Dose: 90 mg Vitals/I&O/Wt Last Vital Signs Temp 98 F 03/07/24 04:00 Pulse 69 03/07/24 07:49 Resp 18 03/07/24 08:59 BP 149/72 03/07/24 04:00 Pulse Ox 97 03/07/24 07:49 O2 Del Method Room Air 03/07/24 07:49 03/06/24 03/07/24 03/07/24 22:59 06:59 14:59 Intake Total 390 / 730 100 / 830 Balance 390 / 730 100 / 830 Weight last 48 hrs Weight 61.4 kg Weight 63.2 kg Weight 55.338 kg Weight 55.338 kg Physical Exam Narrative: No apparent respiratory distress lying in bed. Vital signs stable. HEENT normocephalic atraumatic neck is supple lungs are clear. Heart is regular +s1, s2 abdomen is soft less tender, positive bowel sounds. extremities have no edema. Patient has a right anterior chest wall permacath. Neuro awake alert oriented x 3 positive neuropathy. Patient was seen and examined using audiovisual equipment with the aid of a nurse. Data 03/07/24 03:16 03/07/24 03:16 Micro: Microbiology 03/05/24 11:50 Urine Culture - Preliminary Urine,Clean Catch Gram Negative Rods A&P Assessment and plan (1) End stage renal disease on dialysis: 38-year-old lady ESRD diabetic gastroparesis history of small bowel intussusception, coronary artery disease, hypertension. Patient had recurrent episodes of abdominal and back pain. Patient is status post a noncontrast CT scan on February 28, 2024 showing nonspecific bladder wall thickening question of cystitis, atrophic pancreas no kidney stones or hydronephrosis. She had a CT scan of the abdomen and pelvis with contrast on February 14, 2024. Patient is here again with abdominal pain and nausea. Patient is recently seen by cardiology, Dr. Elza Carranza. 1. Abdominal pain chest pain as per cardiology and medicine. Please note that patient had scarred kidneys question of cystitis. Urinalysis reviewed 3+ protein 2+ glucose 3+ blood negative ketones, 51-100 RBCs negative leukesterase negative white cells. This seems atypical for an infection. Given this abnormal finding on her bladder CT scan and hematuria. Please ensure the patient is seen by urology. This can be done as an inpatient or soon after discharge. 2. Blood pressure improved. Decrease medications of blood pressure does not drop from on dialysis. 3. ESRD - HD TTS for dialysis today and a 3K bath. 4. DM per PMD 5. Hemoglobin excellent patient may be volume depleted. No Epogen. 6. Acid-base status patient's pH is 7.32 with a metabolic acidosis likely of ESRD with respiratory compensation 7. Hyperphosphatemia will add a phosphorus binder. Medications reviewed. Will follow the patient along with you. Informed consent for telehealth was obtained by the patient. Informed consent for dialysis was obtained. Plan Hemodialysis TTHSat, Further workup as per medicine Attestations Medical Necessity Statement*: n/v/abd pain, esrd, htn Time Spent in Patient Care: 16 - 35 minutes (>than 50% of time spent in counselling and/or direct pt care on unit). Coding Level of Care Code Acute Code for Chg Fwd Diagnoses End stage renal disease on dialysis N18.6; Z99.2
--- NOTE | 2024-03-07 10:28 | P.PN_ITS ---
Subjective 2 Subjective: no overnight events tolerating renal diet. continues to have nausea w/o emesis. continues to have abd pain.. to get HD today Endorsing feeling slightly better today blood pressure medications adjusted. Medications: Reviewed: Yes Vitals/I&O/Wt Last Vital Signs Temp 97.8 F 03/07/24 08:00 Pulse 61 03/07/24 08:00 Resp 18 03/07/24 08:59 BP 126/68 03/07/24 08:00 Pulse Ox 97 03/07/24 07:49 O2 Del Method Room Air 03/07/24 07:49 03/06/24 03/07/24 03/07/24 22:59 06:59 14:59 Intake Total 390 / 730 100 / 830 Balance 390 / 730 100 / 830 Weight last 48 hrs Weight 135 lb 5.821 oz Weight 139 lb 5.314 oz Weight 122 lb Weight 122 lb Physical Exam 2 Narrative: Patient is laying supine Abdomen ttp RLQ and periumbilical region. Tender on deep palpation right lower quadrant Awake and alert Signs of dehydration not present today Awake and alert Pleasant cooperative No active emesis Currently on room air Hemodynamically stable No signs of hypertensive urgency Data 03/07/24 03:16 03/07/24 03:16 Micro: Microbiology 03/05/24 11:50 Urine Culture - Preliminary Urine,Clean Catch Gram Negative Rods A&P Assessment and plan (1) End stage renal disease on dialysis: Seen by nephrology 03/07/24 to have HD today, TthuSat shedule reduced norvasc and hydralazine dosages. Abdominal pain chest pain as per cardiology and medicine. Please note that patient had scarred kidneys question of cystitis. Urinalysis reviewed 3+ protein 2+ glucose 3+ blood negative ketones, 51-100 RBCs negative leukesterase negative white cells. This seems atypical for an infection. Given this abnormal finding on her bladder CT scan and hematuria. Please ensure the patient is seen by urology. This can be done as an inpatient or soon after discharge. (2) Diabetes mellitus: Qualifiers: Diabetes mellitus complication detail: with other circulatory complications Diabetes mellitus complication status: with circulatory complication Diabetes mellitus type: type 1 Qualified Code(s): E10.59 - Type 1 diabetes mellitus with other circulatory complications (3) HTN (hypertension): Qualifiers: Hypertension type: primary hypertension Qualified Code(s): I10 - Essential (primary) hypertension (4) Accelerated hypertension: (5) Abdominal pain: (6) COPD (chronic obstructive pulmonary disease): (7) Diabetic neuropathy associated with type 1 diabetes mellitus: Qualifiers: Diabetes mellitus complication detail: diabetic polyneuropathy Qualified Code(s): E10.42 - Type 1 diabetes mellitus with diabetic polyneuropathy (8) Colitis: Plan [id number] lady ESRD diabetic gastroparesis history of small bowel intussusception, coronary artery disease, hypertension. Patient had recurrent episodes of abdominal and back pain. Patient is status post a noncontrast CT scan on February 28, 2024 showing nonspecific bladder wall thickening question of cystitis, atrophic pancreas no kidney stones or hydronephrosis. She had a CT scan of the abdomen and pelvis with contrast on February 14, 2024. Patient is here again with abdominal pain and nausea. Right-sided colitis C. difficile needs to be ruled out, pending stool sample Continue antibiotics Advance diet from clear liquids to renal No active emesis Abdominal pain has slightly improved Recent intussusception, closely monitor in case of recurrent nausea vomiting pressure will stay low to get another abdominal imaging Her recent intussusception was treated conservatively with NG tube Hypertensive urgency: resolved. continue home antihypertensive regimen at this point End-stage renal disease Saturday -nephro following. to have HT today Established coronary disease no active chest pain, continue antiplatelet therapy dual antiplatelet aspirin and Brilinta Advance diet to renal Full code DVT prophylaxis: Heparin Patient currently living with her mother Disposition: Home likely this weekend if remains stable Attestations 2 Medical Necessity Statement*: will require two overnight stays Coding Level of Care Code 84729 Diagnoses End stage renal disease on dialysis N18.6; Z99.2 Type 1 diabetes mellitus with other circulatory complication E10.59 Diabetes mellitus complication detail: with other circulatory complications Diabetes mellitus complication status: with circulatory complication Diabetes mellitus type: type 1 Primary hypertension I10 Hypertension type: primary hypertension Accelerated hypertension I10 Abdominal pain R10.9 COPD (chronic obstructive pulmonary disease) J44.9 Diabetic polyneuropathy associated with type 1 diabetes mellitus E10.42 Diabetes mellitus complication detail: diabetic polyneuropathy Colitis K52.9
[2024-03-07 11:54] LABS: Glucose Point of Care 83 mg/dL (70-110)
--- NOTE | 2024-03-07 16:06 | PC.HD ---
Heparin 1000 units loading dose administered via arterial port of HD catheter at 1552 per supervisor shuttle veneering's orders.
--- NOTE | 2024-03-07 16:26 | PC.NURSE ---
to dialysis via bed at approx 1530
[2024-03-07] MEDS: alteplase 1 mg/mL SDV 2 mL 4 MG INTRACATH (16:45)
--- NOTE | 2024-03-07 18:02 | PC.NURSE ---
received call from dialysis nurse wm...states tem dialysis cath has clotted and states dr davies has requested a new one be placed tomorrow.dr barnard notified.he will contact dr black,surgeon peritoneal dialysis registered nurse.no fluid was taken off pt.
[2024-03-07 18:23] LABS: Glucose Point of Care 197 mg/dL (70-110)
[2024-03-07] MEDS: cefepime 1,000 MG in sodium chloride 0.9% (plus) 50 ML 100 MG IV (18:24)
[2024-03-07] MEDS: sevelamer 800 mg Tablet 1600 MG PO (18:26)
--- NOTE | 2024-03-07 18:41 | PC.NURSE ---
return from dialysis via bed at 1830.medications given late due to not on floor
[2024-03-07 20:09] LABS: Alanine Aminotransferase 61 U/L (0-33); Albumin Level 3.5 g/dL (3.5-5.2); Alkaline Phosphatase 124 U/L (35-105); Anion Gap 19.5 (5-19); Aspartate Amino Transferase 53 U/L (0-32); Blood Urea Nitrogen 35 mg/dL (6-20); Calcium 8.8 mg/dL (8.5-10.5); Carbon Dioxide 23 mmol/L (22-29); Chloride 103 mmol/L (98-107); Creatinine Clr Calc Pharmacy 11.2608; Globulin 3.3 g/dL (1.3-4.6); Glomerular Filtration Rate 8.5 mL/min (90-130); Glucose 238 mg/dL (65-115); Osmolality Calculated 308 mOsm/kg (285-295); Potassium 4.5 mmol/L (3.5-5.1); Sodium 141 mmol/L (136-145); Total Bilirubin 0.2 mg/dL (0.15-1.2); Total Protein 6.8 g/dL (6.6-8.7)
[2024-03-07] MEDS: lisinopril 20 mg Tablet 40 MG PO (20:31)
[2024-03-07 20:49] LABS: Glucose Point of Care 158 mg/dL (70-110)
[2024-03-08] VITALS (17 sets, daily range): BP systolic 103–151; BP diastolic 62–79; PULSE 52–67; RESP 12–17; TEMP 36.1–36.9; O2SAT 93–100
[2024-03-08 03:33] LABS: Alanine Aminotransferase 49 U/L (0-33); Albumin Level 3.4 g/dL (3.5-5.2); Alkaline Phosphatase 125 U/L (35-105); Anion Gap 17.5 (5-19); Aspartate Amino Transferase 40 U/L (0-32); Blood Urea Nitrogen 36 mg/dL (6-20); Calcium 8.5 mg/dL (8.5-10.5); Carbon Dioxide 24 mmol/L (22-29); Chloride 104 mmol/L (98-107); Globulin 3.1 g/dL (1.3-4.6); Glucose 212 mg/dL (65-115); Magnesium 2.1 mg/dL (1.7-2.3); Osmolality Calculated 307 mOsm/kg (285-295); Phosphorus 6.7 mg/dL (2.5-4.5); Potassium 4.5 mmol/L (3.5-5.1); Sodium 141 mmol/L (136-145); Total Bilirubin 0.2 mg/dL (0.15-1.2); Total Protein 6.5 g/dL (6.6-8.7)
[2024-03-08 03:43] LABS: Creatinine Clr Calc Pharmacy 10.6882
[2024-03-08] MEDS: morphine 4 mg/mL SDV 1 mL 2 MG IVP ×4 (03:51→22:01)
[2024-03-08] MEDS: heparin 5,000 unit/mL INJ 1 mL 5000 UNIT SUBCUT (03:56)
[2024-03-08 06:16] LABS: Glucose Point of Care 205 mg/dL (70-110)
[2024-03-08] MEDS: sevelamer 800 mg Tablet 1600 MG PO (07:34)
[2024-03-08] MEDS: metroNIDAZOLE IV 500 MG/100 ML PREMIX 100 MG IV ×2 (07:35→23:17)
[2024-03-08] MEDS: carvedilol 25 mg Tablet PO ×2 (08:24→17:57)
[2024-03-08] MEDS: insulin lispro 100 unit/1 mL SUBCUT (08:24)
[2024-03-08] MEDS: sennosides-docusate Tablet 1 TAB PO (08:24)
[2024-03-08] MEDS: ticagrelor 90 mg Tablet PO ×2 (08:24→17:57)
[2024-03-08] MEDS: amlodipine 5 mg Tablet PO (08:24)
[2024-03-08] MEDS: aspirin 81 mg EC Tablet PO (08:24)
--- NOTE | 2024-03-08 10:28 | P.PN_ITS ---
Subjective 2 Subjective: Patient was seen and examined. Patient is feeling better. Patient was not able to have dialysis yesterday as her permacath is not working well. Denies nausea or vomiting denies shortness of breath. Denies chest pain. Medications: Reviewed: Yes Medication Review Details: Current Medications Acetaminophen (Acetaminophen 500 Mg Tablet) 500 mg PO Q4H PRN PRN Reason: fever Albuterol/Ipratropium (Ipratropium-Albuterol 3 Ml Neb) 3 ml INHALATION Q6H PRN PRN Reason: SHORTNESS OF BREATH Amlodipine Besylate (Amlodipine 5 Mg Tablet) 5 mg PO DAILY [facility] Last Admin: 03/08/24 08:24 Dose: 5 mg Aspirin (Aspirin 81 Mg Ec Tablet) 81 mg PO DAILY [facility] Last Admin: 03/08/24 08:24 Dose: 81 mg Carvedilol (Carvedilol 25 Mg Tablet) 25 mg PO BID [facility] Last Admin: 03/08/24 08:24 Dose: 25 mg Clonidine HCl (Clonidine 0.1 Mg Tablet) 0.1 mg PO PRN PRN PRN Reason: Blood Pressure Glucagon (Glucagon 1 Mg/Ml Kit 1 Ml) 1 mg IM ONCE PRN; Protocol PRN Reason: Adult Acute Hypoglycemia Nursing Prot. Heparin Sodium (Porcine) (Heparin 5,000 Unit/Ml Inj 1 Ml) 5,000 unit SUBCUT Q12H [facility] Last Admin: 03/08/24 03:56 Dose: 5,000 unit Hydralazine HCl (Hydralazine 25 Mg Tablet) 25 mg PO TID [facility] Last Admin: 03/07/24 09:06 Dose: 25 mg Metronidazole (Flagyl Iv) 500 mg in 100 mls @ 100 mls/hr IV Q8H [facility]; Protocol Last Infusion: 03/08/24 09:06 Dose: Infused Dextrose (D5w) 500 mls @ 0 mls/hr IV ONCE PRN; Protocol PRN Reason: Adult Acute Hypoglycemia Prot Dextrose (D10w) 125 mls @ 750 mls/hr IV PRN PRN; Protocol PRN Reason: Adult Acute Hypoglycemia Nursing Protocol Dextrose (D10w) 250 mls @ 1,000 mls/hr IV PRN PRN; Protocol PRN Reason: Adult Acute Hypoglycemia Nursing Protocol Cefepime HCl 1,000 mg/ Sodium (Chloride) 50 mls @ 100 mls/hr IV Q24H [facility] Last Infusion: 03/07/24 19:00 Dose: Infused Insulin Human Lispro (Insulin Lispro 100 Unit/1 Ml) 0 unit SUBCUT TIDWM [facility]; Protocol Last Admin: 03/08/24 08:24 Dose: 6 unit Lisinopril (Lisinopril 20 Mg Tablet) 40 mg PO BEDTIME [facility] Last Admin: 03/07/24 20:31 Dose: 40 mg Morphine Sulfate (Morphine 4 Mg/Ml Sdv 1 Ml) 2 mg IVP Q4H PRN PRN Reason: SEVERE PAIN Last Admin: 03/08/24 08:23 Dose: 2 mg Ondansetron HCl (Ondansetron 2 Mg/Ml Sdv 2 Ml) 4 mg IVP Q6H PRN PRN Reason: NAUSEA AND VOMITING Last Admin: 03/07/24 15:31 Dose: 4 mg Senna/Docusate Sodium (Sennosides-Docusate Tablet) 1 tab PO DAILY [facility] Last Admin: 03/08/24 08:24 Dose: 1 tab Sevelamer Carbonate (Sevelamer 800 Mg Tablet) 1,600 mg PO AC [facility] Last Admin: 03/08/24 07:34 Dose: 1,600 mg Ticagrelor (Ticagrelor 90 Mg Tablet) 90 mg PO BID [facility] Last Admin: 03/08/24 08:24 Dose: 90 mg Vitals/I&O/Wt Last Vital Signs Temp 97.8 F 03/08/24 08:00 Pulse 63 03/08/24 09:15 Resp 16 03/08/24 09:15 BP 141/72 03/08/24 08:00 Pulse Ox 96 03/08/24 09:15 O2 Del Method Room Air 03/08/24 09:15 03/07/24 03/08/24 03/08/24 22:59 06:59 14:59 Intake Total 610 / 710 220 / 930 100 / 100 Balance 610 / 710 220 / 930 100 / 100 Weight last 48 hrs Weight 58.4 kg Weight 61.4 kg Physical Exam 2 Narrative: No apparent respiratory distress lying in bed. Vital signs stable. HEENT normocephalic atraumatic neck is supple lungs are clear. Heart is regular +s1, s2 abdomen is soft less tender, positive bowel sounds. extremities have no edema. Patient has a right anterior chest wall permacath. Neuro awake alert oriented x 3 positive neuropathy. Patient was seen and examined using audiovisual equipment with the aide of a nurse. Data 03/07/24 03:16 03/08/24 02:44 Micro: Microbiology 03/05/24 11:50 Urine Culture - Final Urine,Clean Catch Gram Negative Rods A&P Assessment and plan (1) End stage renal disease on dialysis: 38-year-old lady ESRD diabetic gastroparesis history of small bowel intussusception, coronary artery disease, hypertension. Patient had recurrent episodes of abdominal and back pain. Patient is status post a noncontrast CT scan on February 28, 2024 showing nonspecific bladder wall thickening question of cystitis, atrophic pancreas no kidney stones or hydronephrosis. She had a CT scan of the abdomen and pelvis with contrast on February 14, 2024. Patient is here again with abdominal pain and nausea. Patient is recently seen by cardiology, Dr. Elza Carranza. 1. Abdominal pain chest pain as per cardiology and medicine. Please note that patient had scarred kidneys question of cystitis. Urinalysis reviewed 3+ protein 2+ glucose 3+ blood negative ketones, 51-100 RBCs negative leukesterase negative white cells. This seems atypical for an infection. Given this abnormal finding on her bladder CT scan and hematuria. Please ensure the patient is seen by urology. This can be done as an inpatient or soon after discharge. 2. Blood pressure stable 3. ESRD - HD TTS -unfortunately, her permacath is not working. please call surgery for a new PC and dialysis tomorrow. 4. DM per PMD 5. Hemoglobin excellent patient may be volume depleted. No Epogen. 6. Hyperphosphatemia -HD and phosphorus binder. Medications reviewed. discussed w/ Dr Che. Informed consent for telehealth was obtained by the patient. Informed consent for dialysis was obtained. Plan Hemodialysis catheter is not working. Discussed with Dr. Che for a new catheter. If it is replaced hopefully dialysis tomorrow and discharge soon. Attestations 2 Medical Necessity Statement*: clotted permacath, dm, esrd Time Spent in Patient Care: 16 - 35 minutes (>than 50% of time sp ent in counselling and/or direct pt care on unit) . Coding Level of Care Code Acute Code for Chg Fwd Diagnoses End stage renal disease on dialysis N18.6; Z99.2
[2024-03-08 11:42] LABS: C.Diff PCR (Lab) POSITIVE (Negative)
[2024-03-08] MEDS: dextrose 10% 125 ML 750 ML IV (12:03)
[2024-03-08] MEDS: glucagon 1 mg/mL KIT 1 mL IM (12:03)
[2024-03-08 12:08] LABS: Glucose Point of Care 46 mg/dL (70-110)
[2024-03-08 12:13] LABS: Glucose Point of Care 164 mg/dL (70-110)
--- NOTE | 2024-03-08 12:15 | P.PN_ITS ---
Subjective 2 Subjective: Blood sugar dropped this morning which improved with use of glucagon and D10 Patient going for permacath placement Dr. Oden has been notified No active diarrhea C. difficile antigen positive, toxin results are pending No active significant diarrhea Afebrile In case patient has positive toxins then she will need isolation and p.o. vancomycin Vitals/I&O/Wt Last Vital Signs Temp 97.6 F 03/08/24 12:00 Pulse 64 03/08/24 12:00 Resp 16 03/08/24 09:15 BP 151/75 03/08/24 12:00 Pulse Ox 96 03/08/24 09:15 O2 Del Method Room Air 03/08/24 09:15 03/07/24 03/08/24 03/08/24 22:59 06:59 14:59 Intake Total 610 / 710 220 / 930 100 / 100 Balance 610 / 710 220 / 930 100 / 100 Weight last 48 hrs Weight 58.4 kg Weight 61.4 kg Physical Exam 2 Narrative: Abdomen soft Euvolemic GCS 15 Nonfocal neuroexam Hemodynamically stable Pleasant cooperative On room air Data 03/07/24 03:16 03/08/24 02:44 Micro: Microbiology 03/05/24 11:50 Urine Culture - Final Urine,Clean Catch Gram Negative Rods A&P Assessment and plan (1) HTN (hypertension): Qualifiers: Hypertension type: primary hypertension Qualified Code(s): I10 - Essential (primary) hypertension (2) Accelerated hypertension: (3) Diabetes mellitus: Qualifiers: Diabetes mellitus complication detail: with other circulatory complications Diabetes mellitus complication status: with circulatory complication Diabetes mellitus type: type 1 Qualified Code(s): E10.59 - Type 1 diabetes mellitus with other circulatory complications (4) End stage renal disease on dialysis: (5) COPD (chronic obstructive pulmonary disease): (6) Hemodialysis catheter dysfunction: (7) Hypoglycemia: Plan We have asked Dr. Oden for another permacath dialysis catheter placement Patient is due for dialysis today For colitis C. difficile antigen is positive, toxin is once positive patient will need p.o. vancomycin and isolation No active diarrhea Afebrile Appreciate nephro recommendations General Surgery on board Afebrile No active diarrhea Continue antihypertensive regimen Hypoglycemic today improved with DC 10 glucagon, Attestations 2 Medical Necessity Statement*: Possible discharge on Saturday if she remains stable Diagnoses Primary hypertension I10 Hypertension type: primary hypertension Accelerated hypertension I10 Type 1 diabetes mellitus with other circulatory complication E10.59 Diabetes mellitus complication detail: with other circulatory complications Diabetes mellitus complication status: with circulatory complication Diabetes mellitus type: type 1 End stage renal disease on dialysis N18.6; Z99.2 COPD (chronic obstructive pulmonary disease) J44.9 Hemodialysis catheter dysfunction T82.41XA Hypoglycemia E16.2
[2024-03-08 12:32] LABS: Glucose Point of Care 188 mg/dL (70-110)
[2024-03-08 12:40] LABS: Clostridioides Difficile Toxin NEGATIVE (Negative)
[2024-03-08 12:54] LABS: Glucose Point of Care 206 mg/dL (70-110)
--- NOTE | 2024-03-08 13:06 | ANES.PREANE2 ---
Pre-Anesthetic Assessment Height/Weight: Height 5 ft Weight 128 lb 11.999 oz Temp Pulse Resp BP Pulse Ox O2 Del Method 97.6 F 64 16 151/75 96 Room Air 03/08/24 12:00 03/08/24 12:00 03/08/24 09:15 03/08/24 12:00 03/08/24 09:15 03/08/24 09:15 Preop Diagnosis: End-stage renal disease Operation Date: 03/08/24 14:10 Proposed Procedures p Dialysis Catheter Insertion(Left) - David Oden MD Social No alcohol and No tobacco Quit smoking in July Exam alert, oriented x 3, clear to auscultation bilaterally and regular rate & rhythm Airway Submandibular: within normal limits Cervical ROM: within normal limits Mallampati: Class III Dentition: other (Multiple missing teeth, patient denies any loose teeth) Anesthetic Plan ASA status: 4E Anesthesia: MAC Other: Patient has a very significant past medical history Recent PCI 11/29/2023 on chronic Plavix Per cardiology note in January, patient had a stent placed in the LAD with a OLENA stent Patient has been admitted multiple times with complaints of chest pain over the past few months and was also found to have small bowel intussusception During recent hospitalization Echo 12/30/2023 showing EF 55% with severely elevated filling pressures at that time. Repeat echo 02/11 showing EF 55 to 60% with lower filling pressures Patient normally undergoes dialysis Saturday and Saturday but has not had dialysis since . Port-A-Cath needs replaced Arnold-Chiari malformation Type 1 diabetes Labs reviewed 03/08 Sodium 141, K+ 4.5, creatinine 5.9, BUN 36 Blood sugar 206 today Patient is at a increased risk due to recent drug-eluting stent placement and ESRD. Risks explained to patient and she consents to anesthesia today Plan for MAC anesthesia Medications/Allergies Home Medications Medication Instructions Recorded Confirmed Last Taken Type blood-glucose meter,continuous #1 ea 06/12/22 03/05/24 Unknown Rx (Dexcom G6 Feed Mixer) blood-glucose sensor (Dexcom G6 #3 ea 06/12/22 03/05/24 Unknown Rx Sensor device) blood-glucose transmitter (Dexcom #1 ea 06/12/22 03/05/24 Unknown Rx G6 Transmitter device) fluticasone furoate 100 1 inh inhalation DAILY PRN 09/14/23 03/05/24 09/20/23 History mcg-vilanterol 25 mcg/dose Shortness Of Breath inhalation powder (Breo Ellipta) sevelamer carbonate 800 mg tablet 800 mg PO TID #90 tabs 09/16/23 03/05/24 03/04/24 Rx atorvastatin 40 mg tablet 40 mg PO BEDTIME 11/27/23 03/05/24 03/04/24 History clonidine HCl 0.1 mg tablet See Rx Instructions .Route 11/27/23 03/05/24 Unknown History .COMPLEX PRN Blood Pressure lisinopril 40 mg tablet 40 mg PO BEDTIME 11/27/23 03/05/24 03/04/24 History aspirin 81 mg tablet,delayed 81 mg PO QAM 12/20/23 03/05/24 03/04/24 History release escitalopram oxalate 10 mg tablet 10 mg PO DAILY 12/27/23 03/05/24 03/04/24 History (Lexapro) gabapentin 100 mg capsule 100 mg PO TID 12/27/23 03/05/24 03/04/24 History insulin aspart U-100 100 unit/mL See Rx Instructions .Route 01/01/24 03/05/24 02/10/24 Rx (3 mL) subcutaneous pen (Novolog .COMPLEX #15 mL FlexPen U-100 Insulin aspart) bumetanide 1 mg tablet 1 mg PO DAILY 02/11/24 03/05/24 Unknown History ticagrelor 90 mg tablet (Brilinta) 90 mg PO BID 02/11/24 03/05/24 03/04/24 History amlodipine 10 mg tablet 10 mg PO DAILY 30 days #30 tabs 02/16/24 03/05/24 03/04/24 Rx carvedilol 25 mg tablet 25 mg PO BID 30 days #60 tabs 02/16/24 03/05/24 03/05/24 Rx hydralazine 50 mg tablet 50 mg PO TID 30 days #90 tabs 02/16/24 03/05/24 03/04/24 Rx Allergies Allergy/AdvReac Type Severity Reaction Status Date / Time acetaminophen AdvReac Mild ADR-Gastrointestinal Verified 03/05/24 11:00 Upset Current Medications Generic Name Dose Route Start Last Admin Trade Name Freq PRN Reason Stop Dose Admin Amlodipine Besylate 5 mg 03/07/24 09:00 03/08/24 08:24 Amlodipine 5 Mg Tablet PO 5 mg DAILY [facility] Administration Aspirin 81 mg 03/06/24 09:00 03/08/24 08:24 Aspirin 81 Mg Ec Tablet PO 81 mg DAILY [facility] Administration Carvedilol 25 mg 03/05/24 18:00 03/08/24 08:24 Carvedilol 25 Mg Tablet PO 25 mg BID [facility] Administration Heparin Sodium (Porcine) 5,000 unit 03/05/24 15:30 03/08/24 03:56 Heparin 5,000 Unit/Ml Inj 1 Ml SUBCUT 5,000 unit Q12H [facility] Administration Hydralazine HCl 25 mg 03/07/24 09:00 03/07/24 09:06 Hydralazine 25 Mg Tablet PO 25 mg TID [facility] Administration Metronidazole 500 mg in 100 mls @ 100 mls/hr 03/05/24 15:17 03/08/24 09:06 Flagyl Iv IV Infused Q8H [facility] Infusion Protocol Dextrose 125 mls @ 750 mls/hr 03/05/24 15:19 03/08/24 12:17 D10w IV Infused PRN PRN Infusion Adult Acute Hypoglycemia Nursing Protocol Protocol Insulin Human Lispro 0 unit 03/05/24 18:00 03/08/24 12:17 Insulin Lispro 100 Unit/1 Ml SUBCUT Not Given TIDWM [facility] Protocol Lisinopril 40 mg 03/05/24 21:00 03/07/24 20:31 Lisinopril 20 Mg Tablet PO 40 mg BEDTIME [facility] Administration Morphine Sulfate 2 mg 03/05/24 15:17 03/08/24 08:23 Morphine 4 Mg/Ml Sdv 1 Ml IVP 2 mg Q4H PRN Administration SEVERE PAIN Ondansetron HCl 4 mg 03/05/24 15:17 03/07/24 15:31 Ondansetron 2 Mg/Ml Sdv 2 Ml IVP 4 mg Q6H PRN Administration NAUSEA AND VOMITING Senna/Docusate Sodium 1 tab 03/06/24 09:00 03/08/24 08:24 Sennosides-Docusate Tablet PO 1 tab DAILY [facility] Administration Sevelamer Carbonate 1,600 mg 03/07/24 17:00 03/08/24 10:30 Sevelamer 800 Mg Tablet PO Not Given [facility] Ticagrelor 90 mg 03/05/24 18:00 03/08/24 08:24 Ticagrelor 90 Mg Tablet PO 90 mg BID [facility] Administration Vancomycin HCl 125 mg 03/08/24 13:00 03/08/24 12:56 Vancomycin 125 Mg Capsule PO Not Given QID [facility] Additional Medication Information Current Medications Acetaminophen (Acetaminophen 500 Mg Tablet) 500 mg PO Q4H PRN PRN Reason: fever Albuterol/Ipratropium (Ipratropium-Albuterol 3 Ml Neb) 3 ml INHALATION Q6H PRN PRN Reason: SHORTNESS OF BREATH Amlodipine Besylate (Amlodipine 5 Mg Tablet) 5 mg PO DAILY [facility] Last Admin: 03/08/24 08:24 Dose: 5 mg Aspirin (Aspirin 81 Mg Ec Tablet) 81 mg PO DAILY [facility] Last Admin: 03/08/24 08:24 Dose: 81 mg Carvedilol (Carvedilol 25 Mg Tablet) 25 mg PO BID [facility] Last Admin: 03/08/24 08:24 Dose: 25 mg Clonidine HCl (Clonidine 0.1 Mg Tablet) 0.1 mg PO PRN PRN PRN Reason: Blood Pressure Glucagon (Glucagon 1 Mg/Ml Kit 1 Ml) 1 mg IM ONCE PRN; Protocol PRN Reason: Adult Acute Hypoglycemia Nursing Prot. Heparin Sodium (Porcine) (Heparin 5,000 Unit/Ml Inj 1 Ml) 5,000 unit SUBCUT Q12H [facility] Last Admin: 03/08/24 03:56 Dose: 5,000 unit Hydralazine HCl (Hydralazine 25 Mg Tablet) 25 mg PO TID [facility] Last Admin: 03/07/24 09:06 Dose: 25 mg Metronidazole (Flagyl Iv) 500 mg in 100 mls @ 100 mls/hr IV Q8H [facility]; Protocol Last Infusion: 03/08/24 09:06 Dose: Infused Dextrose (D5w) 500 mls @ 0 mls/hr IV ONCE PRN; Protocol PRN Reason: Adult Acute Hypoglycemia Prot Dextrose (D10w) 125 mls @ 750 mls/hr IV PRN PRN; Protocol PRN Reason: Adult Acute Hypoglycemia Nursing Protocol Dextrose (D10w) 250 mls @ 1,000 mls/hr IV PRN PRN; Protocol PRN Reason: Adult Acute Hypoglycemia Nursing Protocol Cefepime HCl 1,000 mg/ Sodium (Chloride) 50 mls @ 100 mls/hr IV Q24H [facility] Last Infusion: 03/07/24 19:00 Dose: Infused Insulin Human Lispro (Insulin Lispro 100 Unit/1 Ml) 0 unit SUBCUT TIDWM [facility]; Protocol Last Admin: 03/08/24 08:24 Dose: 6 unit Lisinopril (Lisinopril 20 Mg Tablet) 40 mg PO BEDTIME [facility] Last Admin: 03/07/24 20:31 Dose: 40 mg Morphine Sulfate (Morphine 4 Mg/Ml Sdv 1 Ml) 2 mg IVP Q4H PRN PRN Reason: SEVERE PAIN Last Admin: 03/08/24 08:23 Dose: 2 mg Ondansetron HCl (Ondansetron 2 Mg/Ml Sdv 2 Ml) 4 mg IVP Q6H PRN PRN Reason: NAUSEA AND VOMITING Last Admin: 03/07/24 15:31 Dose: 4 mg Senna/Docusate Sodium (Sennosides-Docusate Tablet) 1 tab PO DAILY [facility] Last Admin: 03/08/24 08:24 Dose: 1 tab Sevelamer Carbonate (Sevelamer 800 Mg Tablet) 1,600 mg PO AC [facility] Last Admin: 03/08/24 07:34 Dose: 1,600 mg Ticagrelor (Ticagrelor 90 Mg Tablet) 90 mg PO BID [facility] Last Admin: 03/08/24 08:24 Dose: 90 mg PFSH Anesthesia Medical History ESRD (end stage renal disease) Transaminitis Intractable nausea and vomiting Hyperlipidemia HTN (hypertension) CHF (congestive heart failure), NYHA class III Pulmonary hypertension CAD (coronary artery disease) Neurogenic bladder COVID-19 Tobacco dependence Drug abuse Anemia Community acquired pneumonia Esophagitis Long-term insulin use History of pancreatitis Celiac disease Recurrent UTI Non-alcoholic fatty liver disease Arnold-Chiari malformation Diabetic gastroparesis -continue Reglan Diabetic neuropathy associated with type 1 diabetes mellitus Headache, common migraine, intractable, with status migrainosus Pleural effusion 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 History of lung surgery -s/p LLL lobectomy secondary to cavitary pneumonia (2017) History of endoscopy History of cholecystectomy Family History Grandfather Diabetes Mother CAD (coronary artery disease) Diabetes Brother Acute lymphoblastic leukemia (ALL) in child Other Heart disease Hypertension Social History Smoking and tobacco/nicotine status: former use of tobacco/nicotine Quit status (tobacco/nicotine): has quit using Former quit date comment: She previously smoked <1/2 PPD, quit July 2023. Second hand smoke exposure: Yes Alcohol intake: never Substance/Drug Use: current Household members: children Housing: House Marital status: Single Current occupational status: unemployed Data Anesthesia 03/07/24 03:16 03/08/24 02:44 Short CBC 03/07/24 Range/Units 03:16 WBC 5.71 (3.29-11.43) 10^3/uL Hgb 12.20 (11.27-16.99) g/dL Hct 39.8 (36-47) % MCV 95.0 (85-98) fl Plt Count 141 L (157-399) 10^3/cmm Neut % (Auto) 54.6 % Neut # (Auto) 3.12 (1.8-7.7) 10^3/uL BMP 03/07/24 03/07/24 03/07/24 03:16 12:49 19:18 Sodium 140 Cancelled 141 Potassium 4.1 Cancelled 4.5 Chloride 102 Cancelled 103 Carbon Dioxide 25 Cancelled 23 BUN 33 H Cancelled 35 H Creatinine 5.3 H Cancelled 5.6 H* Glucose 202 H Cancelled 238 H Calcium 8.7 Cancelled 8.8 03/08/24 02:44 Sodium 141 Potassium 4.5 Chloride 104 Carbon Dioxide 24 BUN 36 H Creatinine 5.9 H* Glucose 212 H Calcium 8.5 Liver Function 03/07/24 03/07/24 03/07/24 Range/Units 03:16 12:49 19:18 Total Bilirubin 0.2 Cancelled 0.2 (0.15-1.2) mg/dL AST 35 H Cancelled 53 H (0-32) U/L ALT 48 H Cancelled 61 H (0-33) U/L Alkaline Phosphatase 129 H Cancelled 124 H (35-105) U/L Albumin 3.4 L Cancelled 3.5 (3.5-5.2) g/dL 03/08/24 Range/Units 02:44 Total Bilirubin 0.2 (0.15-1.2) mg/dL AST 40 H (0-32) U/L ALT 49 H (0-33) U/L Alkaline Phosphatase 125 H (35-105) U/L Albumin 3.4 L (3.5-5.2) g/dL Microbiology 03/05/24 11:50 Urine Culture - Final Urine,Clean Catch Gram Negative Rods Cardiac Studies: Echocardiogram 12/30/23 Echocardiogram Limited Views 02/12/24 Echocardiogram Ultrasound 08/17/20 Sestamibi Stress Test (Cardiology) 12/30/23
[2024-03-08 13:43] LABS: Glucose Point of Care 245 mg/dL (70-110)
--- NOTE | 2024-03-08 14:26 | PM.CONSULT ---
Providers/Reason For Consult Consulting Physician/Specialty*: Dr. Oden general surgery Reason for Consult*: dialysis access Attending Physician: Austin Che MD Primary Care Provider: SUZANNE Dias History of Present Illness History of Present Illness Donita Aguilar is a 38 year old female ESRDS whom general surgery was consulted to replaced TDC. Patient has a TDC and it stopped working. Plan for dialysis today. Medications/Allergies Home Medications Medication Instructions Recorded Confirmed Last Taken Type blood-glucose meter,continuous #1 ea 06/12/22 03/05/24 Unknown Rx (Dexcom G6 Critical Care Cns) blood-glucose sensor (Dexcom G6 #3 ea 06/12/22 03/05/24 Unknown Rx Sensor device) blood-glucose transmitter (Dexcom #1 ea 06/12/22 03/05/24 Unknown Rx G6 Transmitter device) fluticasone furoate 100 1 inh inhalation DAILY PRN 09/14/23 03/05/24 09/20/23 History mcg-vilanterol 25 mcg/dose Shortness Of Breath inhalation powder (Breo Ellipta) sevelamer carbonate 800 mg tablet 800 mg PO TID #90 tabs 09/16/23 03/05/24 03/04/24 Rx atorvastatin 40 mg tablet 40 mg PO BEDTIME 11/27/23 03/05/24 03/04/24 History clonidine HCl 0.1 mg tablet See Rx Instructions .Route 11/27/23 03/05/24 Unknown History .COMPLEX PRN Blood Pressure lisinopril 40 mg tablet 40 mg PO BEDTIME 11/27/23 03/05/24 03/04/24 History aspirin 81 mg tablet,delayed 81 mg PO QAM 12/20/23 03/05/24 03/04/24 History release escitalopram oxalate 10 mg tablet 10 mg PO DAILY 12/27/23 03/05/24 03/04/24 History (Lexapro) gabapentin 100 mg capsule 100 mg PO TID 12/27/23 03/05/24 03/04/24 History insulin aspart U-100 100 unit/mL See Rx Instructions .Route 01/01/24 03/05/24 02/10/24 Rx (3 mL) subcutaneous pen (Novolog .COMPLEX #15 mL FlexPen U-100 Insulin aspart) bumetanide 1 mg tablet 1 mg PO DAILY 02/11/24 03/05/24 Unknown History ticagrelor 90 mg tablet (Brilinta) 90 mg PO BID 02/11/24 03/05/24 03/04/24 History amlodipine 10 mg tablet 10 mg PO DAILY 30 days #30 tabs 02/16/24 03/05/24 03/04/24 Rx carvedilol 25 mg tablet 25 mg PO BID 30 days #60 tabs 02/16/24 03/05/24 03/05/24 Rx hydralazine 50 mg tablet 50 mg PO TID 30 days #90 tabs 02/16/24 03/05/24 03/04/24 Rx Allergies Allergy/AdvReac Type Severity Reaction Status Date / Time acetaminophen AdvReac Mild ADR-Gastrointestinal Verified 03/05/24 11:00 Upset Current Medications Generic Name Dose Route Start Last Admin Trade Name Freq PRN Reason Stop Dose Admin Amlodipine Besylate 5 mg 03/07/24 09:00 03/08/24 08:24 Amlodipine 5 Mg Tablet PO 5 mg DAILY SHAY Administration Aspirin 81 mg 03/06/24 09:00 03/08/24 08:24 Aspirin 81 Mg Ec Tablet PO 81 mg DAILY SHAY Administration Carvedilol 25 mg 03/05/24 18:00 03/08/24 08:24 Carvedilol 25 Mg Tablet PO 25 mg BID SHAY Administration Heparin Sodium (Porcine) 5,000 unit 03/05/24 15:30 03/08/24 03:56 Heparin 5,000 Unit/Ml Inj 1 Ml SUBCUT 5,000 unit Q12H SHAY Administration Hydralazine HCl 25 mg 03/07/24 09:00 03/08/24 14:22 Hydralazine 25 Mg Tablet PO Not Given TID COUNTS INCLUDE 234 BEDS AT THE [facility] Metronidazole 500 mg in 100 mls @ 100 mls/hr 03/05/24 15:17 03/08/24 14:22 Flagyl Iv IV Not Given Q8H COUNTS INCLUDE 234 BEDS AT THE [facility] Protocol Dextrose 125 mls @ 750 mls/hr 03/05/24 15:19 03/08/24 12:17 D10w IV Infused PRN PRN Infusion Adult Acute Hypoglycemia Nursing Protocol Protocol Insulin Human Lispro 0 unit 03/05/24 18:00 03/08/24 12:17 Insulin Lispro 100 Unit/1 Ml SUBCUT Not Given TIDWM COUNTS INCLUDE 234 BEDS AT THE [facility] Protocol Lisinopril 40 mg 03/05/24 21:00 03/07/24 20:31 Lisinopril 20 Mg Tablet PO 40 mg BEDTIME SHAY Administration Morphine Sulfate 2 mg 03/05/24 15:17 03/08/24 08:23 Morphine 4 Mg/Ml Sdv 1 Ml IVP 2 mg Q4H PRN Administration SEVERE PAIN Ondansetron HCl 4 mg 03/05/24 15:17 03/07/24 15:31 Ondansetron 2 Mg/Ml Sdv 2 Ml IVP 4 mg Q6H PRN Administration NAUSEA AND VOMITING Senna/Docusate Sodium 1 tab 03/06/24 09:00 03/08/24 08:24 Sennosides-Docusate Tablet PO 1 tab DAILY SHAY Administration Sevelamer Carbonate 1,600 mg 03/07/24 17:00 03/08/24 10:30 Sevelamer 800 Mg Tablet PO Not Given AC SHAY Ticagrelor 90 mg 03/05/24 18:00 03/08/24 08:24 Ticagrelor 90 Mg Tablet PO 90 mg BID SHAY Administration Vancomycin HCl 125 mg 03/08/24 13:00 03/08/24 12:56 Vancomycin 125 Mg Capsule PO Not Given QID SHAY PFSH Acute PFSH: Medical History ESRD (end stage renal disease) Transaminitis Intractable nausea and vomiting Hyperlipidemia HTN (hypertension) CHF (congestive heart failure), NYHA class III Pulmonary hypertension CAD (coronary artery disease) Neurogenic bladder COVID-19 Tobacco dependence Drug abuse Anemia Community acquired pneumonia Esophagitis Long-term insulin use History of pancreatitis Celiac disease Recurrent UTI Non-alcoholic fatty liver disease Arnold-Chiari malformation Diabetic gastroparesis -continue Reglan Diabetic neuropathy associated with type 1 diabetes mellitus Headache, common migraine, intractable, with status migrainosus Pleural effusion 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 History of lung surgery -s/p LLL lobectomy secondary to cavitary pneumonia (2017) History of endoscopy History of cholecystectomy Family History Grandfather Diabetes Mother CAD (coronary artery disease) Diabetes Brother Acute lymphoblastic leukemia (ALL) in child Other Heart disease Hypertension Social History Smoking and tobacco/nicotine status: former use of tobacco/nicotine Quit status (tobacco/nicotine): has quit using Former quit date comment: She previously smoked <1/2 PPD, quit July 2023. Second hand smoke exposure: Yes Alcohol intake: never Substance/Drug Use: current Household members: children Housing: House Marital status: Single Current occupational status: unemployed Vitals/I&O/Wt Last Vital Signs Temp 97.2 F L 03/08/24 13:18 Pulse 55 L 03/08/24 13:18 Resp 16 03/08/24 13:18 BP 106/69 03/08/24 13:18 Pulse Ox 99 03/08/24 13:18 O2 Del Method Room Air 03/08/24 13:18 03/07/24 03/08/24 03/08/24 22:59 06:59 14:59 Intake Total 610 / 710 220 / 930 225 / 225 Balance 610 / 710 220 / 930 225 / 225 Weight last 48 hrs Weight 128 lb 11.999 oz Weight 135 lb 5.821 oz Physical Exam Narrative: AOx3 Heart: RRR Lungs: unlabored breathing RA Chest: TDC on right chest, not working. Data 03/07/24 03:16 03/08/24 02:44 Micro: Microbiology 03/05/24 11:50 Urine Culture - Final Urine,Clean Catch Gram Negative Rods A&P Assessment and plan (1) Dialysis complication: Plan 38yo F ESRD who needs a TDC replacement. Discussed risks and benefits of tunneled dialysis catheter replacement and patient agrees to proceed. Patient should follow up with jumpbasting machine operator and general surgery at [facility] with me to consider definitive dialysis access with PD catheter of AV fistula/graft. Proceed to OR for TDC replacement. Patient is greater than average risk for complications, however, the patient, the hospitalist, and anesthesia have agreed to proceed. Coding Level of Care Code 25073 Diagnoses Dialysis complication T82.9XXA Time Spent (min) 30
[2024-03-08] MEDS: insulin regular-human 100 units/1 mL 3 UNIT IV (14:29)
--- NOTE | 2024-03-08 14:43 | SC_ITS ---
WS: [id number] C-ARM RADIOGRAPHS CHEST; 3 IMAGES HISTORY: DIALYSIS CATHETER COMPARISON: None available. Dialysis catheter has been placed with the tips overlying the RIGHT heart. The longer catheter may be in the RIGHT ventricle. SC/C-arm FL for CVA [id number] IMPRESSION: Intraoperative imaging during dialysis catheter placement. The longer catheter may be within the RIGHT ventricle. Position should be confirmed radiographicall y. Recommend chest radiograph follow-up to better determine the overall position o f the catheters.
[2024-03-08] MEDS: ceFAZolin 2,000 mg SDV 2000 MG IVP (15:05)
[2024-03-08] MEDS: heparin, porcine 1,000 unit/mL INJ 10 mL 3000 UNIT INTRACATH (15:30)
--- NOTE | 2024-03-08 15:59 | W.PM.BPONFUL ---
Pathology: none Implant(s): 16F 23cm tunneled dialysis catheter Anesthesia: general anesthesia Complications: none Brief history/preop diagnosis: 38yo female ESRD whose TDC clotted off. Patient was taken to the OR for TDC replacement. Full operative report: After explaining the risks and benefits of TDC replacement, the patient agreed to proceed. Patient was placed supine on the table, SCDs were applied, preoperative ancef was administered. MAC was utilized. The right neck and chest were prepped in the usual sterile fashion. An incision over the cuff of the old catheter was carried out after local infiltration with lidocaine/bupivicaine with 1 % epinephrine. The cuff was dissected off the subcutaneous tissues and the catheter was removed. The right internal jugular vein was visualized under US guidance. A stab incision was done on the neck. A finder needle was used to obtain vascular access of the right internal jugular vein. A guidewire was then threaded through the wire. Fluorocopy was used to confirm adequate placement of the guide wire at the junction of the brachocephalic vein and right atrium. The catheter was tunneled from the chest to the stab incision on the neck. The tract dilated in a serial fashion over the guidewire. An introducer was placed, the guidewire was removed, and the catheter was threaded through the introducer while simultenously pulling on the sheath. Fluoroscopy confirmed adequate positioning of the tip of the diaysis catheter. The incision on the chest and neck were closed using 3-0 vicryl, 4-0 monocryl and surgical glue. The catheter was secured to the chest using 3-0 nylon. I was able to draw blood from the both lumens and then I flushed both using heparinized saline. Condition: stable Dispostion: floor
[2024-03-08 16:59] LABS: Glucose Point of Care 147 mg/dL (70-110)
[2024-03-08] MEDS: vancomycin 125 mg Capsule PO ×2 (17:57→20:20)
[2024-03-08] MEDS: hyDRALAzine 25 mg Tablet PO (20:19)
[2024-03-08] MEDS: lisinopril 20 mg Tablet 40 MG PO (20:20)
[2024-03-08 21:58] LABS: Glucose Point of Care 172 mg/dL (70-110)
[2024-03-09] VITALS (9 sets, daily range): BP systolic 109–185; BP diastolic 75–115; PULSE 64–74; RESP 12–18; TEMP 36.6–37; O2SAT 95–98
[2024-03-09 04:26] LABS: Alanine Aminotransferase 45 U/L (0-33); Albumin Level 3.4 g/dL (3.5-5.2); Alkaline Phosphatase 118 U/L (35-105); Anion Gap 20.6 (5-19); Aspartate Amino Transferase 54 U/L (0-32); Blood Urea Nitrogen 42 mg/dL (6-20); Calcium 8.6 mg/dL (8.5-10.5); Carbon Dioxide 20 mmol/L (22-29); Chloride 103 mmol/L (98-107); Creatinine Clr Calc Pharmacy 8.8002; Globulin 3.1 g/dL (1.3-4.6); Glomerular Filtration Rate 6.6 mL/min (90-130); Glucose 204 mg/dL (65-115); Magnesium 2.2 mg/dL (1.7-2.3); Osmolality Calculated 304 mOsm/kg (285-295); Phosphorus 7.4 mg/dL (2.5-4.5); Potassium 4.6 mmol/L (3.5-5.1); Sodium 139 mmol/L (136-145); Total Bilirubin 0.2 mg/dL (0.15-1.2); Total Protein 6.5 g/dL (6.6-8.7)
[2024-03-09] MEDS: morphine 4 mg/mL SDV 1 mL 2 MG IVP ×2 (04:32→14:56)
[2024-03-09] MEDS: heparin 5,000 unit/mL INJ 1 mL 5000 UNIT SUBCUT ×2 (04:33→14:56)
[2024-03-09 06:53] LABS: Glucose Point of Care 166 mg/dL (70-110)
[2024-03-09] MEDS: sevelamer 800 mg Tablet 1600 MG PO ×2 (07:05→18:18)
[2024-03-09] MEDS: metroNIDAZOLE IV 500 MG/100 ML PREMIX 100 MG IV ×3 (07:06→23:43)
[2024-03-09] MEDS: hyDRALAzine 25 mg Tablet PO ×3 (08:15→21:07)
[2024-03-09] MEDS: ticagrelor 90 mg Tablet PO ×2 (08:15→18:18)
[2024-03-09] MEDS: sennosides-docusate Tablet 1 TAB PO (08:15)
[2024-03-09] MEDS: aspirin 81 mg EC Tablet PO (08:15)
[2024-03-09] MEDS: amlodipine 5 mg Tablet PO (08:15)
[2024-03-09] MEDS: carvedilol 25 mg Tablet PO ×2 (08:15→18:18)
[2024-03-09] MEDS: insulin lispro 100 unit/1 mL SUBCUT (08:19)
[2024-03-09] MEDS: vancomycin 125 mg Capsule PO ×4 (08:22→21:07)
--- NOTE | 2024-03-09 08:25 | P.PN_ITS ---
Subjective 2 Subjective: no new complaints PC replaced Medications: Reviewed: Yes Vitals/I&O/Wt Last Vital Signs Temp 97.8 F 03/09/24 08:11 Pulse 70 03/09/24 08:11 Resp 14 03/09/24 08:11 BP 141/115 03/09/24 08:11 Pulse Ox 97 03/09/24 08:11 O2 Del Method Room Air 03/09/24 08:11 03/08/24 03/09/24 03/09/24 22:59 06:59 14:59 Intake Total 500 / 725 100 / 825 Output Total 50 / 50 Balance 450 / 675 100 / 775 Weight last 48 hrs Weight 57.5 kg Weight 58.4 kg Physical Exam 2 Narrative: No apparent respiratory distress lying in bed. Vital signs stable. HEENT normocephalic atraumatic neck is supple lungs are clear. Heart is regular +s1, s2 abdomen is soft less tender, positive bowel sounds. extremities have no edema. Patient has a right anterior chest wall permacath. Neuro awake alert oriented x 3 positive neuropathy. Patient was seen and examined using audiovisual equipment with the aide of a nurse. Data 03/07/24 03:16 03/09/24 02:40 A&P Assessment and plan (1) End stage renal disease on dialysis: 38-year-old lady ESRD diabetic gastroparesis history of small bowel intussusception, coronary artery disease, hypertension. Patient had recurrent episodes of abdominal and back pain. Patient is status post a noncontrast CT scan on February 28, 2024 showing nonspecific bladder wall thickening question of cystitis, atrophic pancreas no kidney stones or hydronephrosis. She had a CT scan of the abdomen and pelvis with contrast on February 14, 2024. Patient is here again with abdominal pain and nausea. Patient is recently seen by cardiology, Dr. Elza Carranza. 1. Abdominal pain chest pain -as per cardiology and medicine. Please note that patient had scarred kidneys question of cystitis. Urinalysis reviewed 3+ protein 2+ glucose 3+ blood negative ketones, 51-100 RBCs negative leukesterase negative white cells. This seems atypical for an infection. Given this abnormal finding on her bladder CT scan and hematuria. Please ensure the patient is seen by urology. This can be done as an inpatient or soon after discharge. 2. HTN : Blood pressure stable 3. ESRD - HD TTS - PC replaced , HD today 4. DM per PMD 5. Hemoglobin - patient may be volume depleted. No Epogen. 6. Hyperphosphatemia -HD and phosphorus binder. Medications reviewed. Informed consent for telehealth was obtained by the patient. Informed consent for dialysis was obtained. Plan Hemodialysis catheter is not working. Discussed with Dr. Che for a new catheter. If it is replaced hopefully dialysis tomorrow and discharge soon. Attestations 2 Medical Necessity Statement*: per wilson Coding Level of Care Code Acute Code for Chg Fwd Diagnoses End stage renal disease on dialysis N18.6; Z99.2
--- NOTE | 2024-03-09 09:28 | XRR_ITS ---
PROCEDURE INFORMATION: Exam: XR Abdomen Exam date and time: 03/09/2024 1:53 PM Age: 38 years old Clinical indication: Abdominal pain; Generalized; Prior surgery; Surgery date: 6+ months; Surgery type: Dialysis port; Additional info: Ileus? TECHNIQUE: Imaging protocol: Radiologic exam of the abdomen. Views: Frontal supine view of the abdomen. 1 View. COMPARISON: CT abdomen pelvis con [id number] 03/05/2024 2:20 PM FINDINGS: Gastrointestinal tract: Nonobstructive bowel gas pattern. No evidence of free air or pneumatosis. Bones/joints: No evidence of acute osseous abnormality. XR/XR KUB portable [id number] IMPRESSION: 1. Nonobstructive bowel gas pattern.
--- NOTE | 2024-03-09 09:49 | P.DS_ITS ---
Discharge Providers Date of Admission: 03/05/24 14:18 Date of Discharge: March 09, 2024 Attending Provider at Admission: Austin Che MD Attending Provider at Discharge: Austin Che MD Primary Care Provider: SUZANNE Dias Diagnoses at Discharge Discharge Diagnosis (1) End stage renal disease on dialysis: Status: Chronic Reason for Visit Reason for Visit: abdominal pain - dialysis pt Hospital Course Hospital Course 38-year-old female, with established history of coronary disease had a stent placed this year, insulin-dependent diabetic, end-stage renal disease Saturday, started dialysis around July 2023 presented to the hospital for right flank pain. CT scan of abdomen without contrast in the ER showed colitis. Her C. difficile PCR panel is positive however toxins are not active at this time. I decided to treat her with metronidazole and p.o. vancomycin. Please note her tunneled dialysis catheter was troubleshooting, general surgery was consulted, and new tunneled dialysis catheter was placed 03/08 without any complications. We made sure that patient did not miss dual antiplatelet therapy throughout her hospitalization. No active diarrhea, she had 1 bowel movement on 03/07. Physical Exam Narrative: Pleasant cooperative No active abdominal pain on palpation Hemodynamically stable Euvolemic S1, S2 Hypertensive Discharge Data Studies Completed and Pending Completed Studies During Hospitalization Category Date Time Status CT abdomen pelvis wo con [id number] Stat Cat Scan 03/05/24 12:45 Completed Pending at discharge Category Date Time Status XR KUB portable [id number] Routine Exams 03/09/24 09:28 Ordered Comprehensive Metabolic Panel AM LABS Lab 03/10/24 04:00 Ordered Comprehensive Metabolic Panel AM LABS Lab 03/11/24 04:00 Ordered Magnesium AM LABS Lab 03/10/24 04:00 Ordered Magnesium AM LABS Lab 03/11/24 04:00 Ordered Phosphorus AM LABS Lab 03/10/24 04:00 Ordered Phosphorus AM LABS Lab 03/11/24 04:00 Ordered Stool Culture - Enteric [Salmonella / Shigella / Campy] Lab 03/08/24 10:09 Received Routine Radiology Impressions Abdomen/Pelvis CT 03/05/24 12:45 IMPRESSION: 1. Mild nonspecific right-sided colitis, as described above. 2. Mild circumferential urinary bladder wall thickening, likely secondary to underdistention. 3. Additional findings, as above. C-Arm Fluoroscopy 03/08/24 14:43 IMPRESSION: Intraoperative imaging during dialysis catheter placement. The longer catheter may be within the RIGHT ventricle. Position should be confirmed radiographically. Recommend chest radiograph follow-up to better determine the overall position of the catheters. Laboratory Results WBC 5.71 10^3/uL (3.29-11.43) 03/07/24 03:16 RBC 4.19 10^6/uL (3.85-5.65) 03/07/24 03:16 Hgb 12.20 g/dL (11.27-16.99) 03/07/24 03:16 Hct 39.8 % (36-47) 03/07/24 03:16 MCV 95.0 fl (85-98) 03/07/24 03:16 MCH 29.1 pg (27-33) 03/07/24 03:16 MCHC 30.7 g/dL (30-55) 03/07/24 03:16 RDW 17.3 % (12.1-15.1) H 03/07/24 03:16 Plt Count 141 10^3/cmm (157-399) L 03/07/24 03:16 MPV 10.2 fL (7.4-10.4) 03/07/24 03:16 Neut % (Auto) 54.6 % 03/07/24 03:16 Lymph % (Auto) 28.7 % 03/07/24 03:16 [place] % (Auto) 9.8 % 03/07/24 03:16 Eos % (Auto) 5.8 % 03/07/24 03:16 Baso % (Auto) 0.9 % 03/07/24 03:16 Neut # (Auto) 3.12 10^3/uL (1.8-7.7) 03/07/24 03:16 Lymph # (Auto) 1.6 10^3/uL (0.8-4.8) 03/07/24 03:16 [place] # (Auto) 0.6 10^3/uL (0.2-0.9) 03/07/24 03:16 Eos # (Auto) 0.3 10^3/uL (0.0-0.8) 03/07/24 03:16 Baso # (Auto) 0.1 10^3/uL (0.0-0.1) 03/07/24 03:16 Nucleated RBC % (auto) 0 % 03/07/24 03:16 Nucleated RBCs # 0.0 /100WBC 03/07/24 03:16 Specimen Type Arterial 03/05/24 11:58 Sample Site Brachial, right 03/05/24 11:58 ABG pH 7.32 (7.35-7.45) L 03/05/24 11:58 ABG pCO2 36.3 mmHg (35-45) 03/05/24 11:58 ABG pO2 102.0 mmHg (80.0-100.0) H 03/05/24 11:58 ABG PO2/FiO2 Ratio 485 03/05/24 11:58 ABG HCO3 18.8 mmol/L (22-26) L 03/05/24 11:58 ABG O2 Saturation 98.4 03/05/24 11:58 ABG Base Excess -6.5 mmol/L (-2.0-2.0) L 03/05/24 11:58 Braulio Test N/a 03/05/24 11:58 A-a O2 Gradient 0.1 mmHg (5-10) L 03/05/24 11:58 Hematocrit 40.6 % (37-47) 03/05/24 11:58 Hgb O2 Saturation 96.2 % (95-100) 03/05/24 11:58 Carboxyhemoglobin 1.2 %THgb (0.4-20.1) 03/05/24 11:58 Methemoglobin 1.0 % (0.4-1.5) 03/05/24 11:58 Total Hemoglobin 13.3 g/dL (12-16) 03/05/24 11:58 Sodium 138.0 mmol/L (131-143) 03/05/24 11:58 Potassium 5.3 mmol/L (3.5-5.0) H 03/05/24 11:58 Glucose 261.0 mg/dL (70-115) H 03/05/24 11:58 Ionized Calcium 1.2 mmol/L (1.1-1.4) 03/05/24 11:58 O2 Delivery Device Room air 03/05/24 11:58 FiO2 21.0 % 03/05/24 11:58 College Dean ID Amh 03/05/24 11:58 Sodium 139 mmol/L (136-145) 03/09/24 02:40 Potassium 4.6 mmol/L (3.5-5.1) 03/09/24 02:40 Chloride 103 mmol/L (98-107) 03/09/24 02:40 Carbon Dioxide 20 mmol/L (22-29) L 03/09/24 02:40 Anion Gap 20.6 (5-19) H 03/09/24 02:40 BUN 42 mg/dL (6-20) H 03/09/24 02:40 Creatinine 7.0 mg/dL (0.5-0.9) H* 03/09/24 02:40 GFR Calculation 6.6 mL/min (90-130) L 03/09/24 02:40 Glucose 204 mg/dL (65-115) H 03/09/24 02:40 POC Glucose 166 mg/dL (70-110) H 03/09/24 06:50 Calculated Osmolality 304 mOsm/kg (285-295) H 03/09/24 02:40 Calcium 8.6 mg/dL (8.5-10.5) 03/09/24 02:40 Phosphorus 7.4 mg/dL (2.5-4.5) H 03/09/24 02:40 Magnesium 2.2 mg/dL (1.7-2.3) 03/09/24 02:40 Total Bilirubin 0.2 mg/dL (0.15-1.2) 03/09/24 02:40 AST 54 U/L (0-32) H 03/09/24 02:40 ALT 45 U/L (0-33) H 03/09/24 02:40 Alkaline Phosphatase 118 U/L (35-105) H 03/09/24 02:40 Total Protein 6.5 g/dL (6.6-8.7) L 03/09/24 02:40 Albumin 3.4 g/dL (3.5-5.2) L 03/09/24 02:40 Globulin 3.1 g/dL (1.3-4.6) 03/09/24 02:40 HCG, Qual Negative (Negative) 03/05/24 11:37 Urine Color Yellow (Yellow) 03/05/24 11:50 Urine Appearance Slightly cloudy (CLEAR) 03/05/24 11:50 Urine pH 7.5 (5-7) 03/05/24 11:50 Ur Specific Lutz 1.016 (1.005-1.030) 03/05/24 11:50 Urine Protein 3+ (Negative) A 03/05/24 11:50 Urine Glucose (UA) 3+ (Normal) H 03/05/24 11:50 Urine Ketones Negative (Negative) 03/05/24 11:50 Urine Blood 3+ (Negative) A 03/05/24 11:50 Urine Nitrate Negative (Negative) 03/05/24 11:50 Urine Bilirubin Negative (Negative) 03/05/24 11:50 Urine Urobilinogen 0.2 mg/dL (Negative) 03/05/24 11:50 Ur Leukocyte Esterase Negative (Negative) 03/05/24 11:50 Urine RBC 51-100 /hpf (0-2) H 03/05/24 11:50 Urine WBC 0-5 /hpf (0-5) 03/05/24 11:50 Ur Squamous Epith Cells 6-10 /hpf (0-5) 03/05/24 11:50 Amorphous Sediment Not Reportable 03/05/24 11:50 Urine Bacteria None seen /hpf (NONE) 03/05/24 11:50 Hyaline Casts 2.46 /lpf 03/05/24 11:50 Serum Ketones Negative (Negative) 03/05/24 11:37 C. difficile (PCR) Positive (Negative) H 03/07/24 13:54 C.difficile Tox Confrm Negative (Negative) 03/07/24 13:54 Hep Bs Antigen Non-reactive (Nonreactive) 03/05/24 11:37 Hep Bs Antibody 15.2 (11.5-1000) 03/05/24 11:37 Hepatitis C Antibody Non-reactive (Nonreactive) 03/05/24 11:37 Vitals Last Vital Signs Temp 97.8 F 03/09/24 08:11 Pulse 70 03/09/24 08:11 Resp 14 03/09/24 08:11 BP 141/115 03/09/24 08:11 Pulse Ox 97 03/09/24 08:11 O2 Del Method Room Air 03/09/24 08:11 Discharge Plan Discharge Patient Disposition: Home Condition: Stable Prescriptions: New vancomycin 125 mg Capsule 125 mg PO QID 8 Days Qty: 32 0RF metronidazole 500 mg tablet 500 mg PO BID 7 Days Qty: 14 0RF Continued (DME) Dexcom G6 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 Metal Worker Misc See Rx Instructions .Route Qty: 1 0RF Rx Instructions: As directed (DME) Dexcom G6 Sensor Device See Rx Instructions .Route Qty: 3 0RF Rx Instructions: As directed (DME) Dexcom G6 Transmitter Device See Rx Instructions .Route Qty: 1 0RF Rx Instructions: As directed aspirin 81 mg tablet,delayed release (DR/EC) 81 mg PO QAM fluticasone furoate-vilanterol [Breo Ellipta] 100-25 mcg/dose Blister With Device 1 inh INHALATION DAILY PRN (Reason: Shortness Of Breath) sevelamer carbonate 800 mg Tablet 800 mg PO TID Qty: 90 0RF atorvastatin 40 mg tablet 40 mg PO BEDTIME clonidine HCl 0.1 mg tablet See Rx Instructions .ROUTE .COMPLEX PRN (Reason: Blood Pressure) Rx Instructions: TAKE 1 TABLET IF SYSTOLIC BLOOD PRESSURE IS GREATER THAN 160, REPEAT ONCE IF SYSTOLIC BLOOD PRESSURE IS STILL OVER 160 AFTER 1 HOUR. lisinopril 40 mg tablet 40 mg PO BEDTIME gabapentin 100 mg Capsule 100 mg PO TID escitalopram oxalate [Lexapro] 10 mg Tablet 10 mg PO DAILY insulin aspart U-100 [Novolog FlexPen U-100 Insulin] 100 unit/mL (3 mL) insulin pen See Rx Instructions .ROUTE .COMPLEX Qty: 15 0RF Rx Instructions: Inject, subcut, 3 times daily, after meals, based on sliding scale provided bumetanide 1 mg tablet 1 mg PO DAILY Rx Instructions: ON NON-DIALYSIS DAYS. Brilinta 90 mg tablet 90 mg PO BID carvedilol 25 mg Tablet 25 mg PO BID 30 Days Qty: 60 0RF amlodipine 10 mg Tablet 10 mg PO DAILY 30 Days Qty: 30 0RF hydralazine 50 mg Tablet 50 mg PO TID 30 Days Qty: 90 0RF Discharge Orders: Discharge Order (Routine); Ordered 03/09/24 Ordered By: Austin Che Referrals: [facility] [Outside] Elizabeth Dougherty FNP [Primary Care Provider] - Patient Instructions: Heart Failure (DC), Dialysis Diet (DC), Acute Wound Care (DC), Hemodialysis (DC), CHF Stoplight, Opioid Safety, Post Anesthesia Care Discharge Attestations Time Spent in Discharge Care*: greater than 30 min Status at Discharge: Cognitive status at discharge: cognitively intact , Behavioral status at discharge: cooperative and independent in ADL's , Quality Metrics Clinical Quality Measures [ No reported AMI, CVA or VTE this stay] Coding Level of Care Code Acute Code for Chg Fwd Diagnoses End stage renal disease on dialysis N18.6; Z99.2
[2024-03-09] MEDS: albumin 12.5 GM/50 ML VIAL IV ×2 (11:00→11:32)
--- NOTE | 2024-03-09 12:05 | PC.SOCIAL ---
IMM Update pg 2 of IMM updated and reviewed w/ patient while in dialysis. Copy left @ bedside and copy dated, initialed and placed in chart.
--- NOTE | 2024-03-09 13:58 | P.PN_ITS ---
Subjective 2 Subjective: Discharge order was canceled because patient had a bloody bowel movement She remained hemodynamically stable Went for dialysis Awake and alert No worsening abdominal pain Patient is stating that there is mild discomfort after eating her lunch Vitals/I&O/Wt Last Vital Signs Temp 97.8 F 03/09/24 08:11 Pulse 72 03/09/24 08:54 Resp 18 03/09/24 08:54 BP 141/115 03/09/24 08:11 Pulse Ox 97 03/09/24 08:54 O2 Del Method Room Air 03/09/24 08:54 03/08/24 03/09/24 03/09/24 22:59 06:59 14:59 Intake Total 500 / 725 100 / 825 200 / 200 Output Total 50 / 50 Balance 450 / 675 100 / 775 200 / 200 Weight last 48 hrs Weight 57.5 kg Weight 58.4 kg Physical Exam 2 Narrative: Awake and alert Euvolemic GCS 15 No abdominal pain or chest pain Hemodynamically stable at this point Tolerating diet Dialysis catheter site without any active drainage S1, S2 variable Data 03/07/24 03:16 03/10/24 03:42 A&P Assessment and plan (1) HTN (hypertension): Qualifiers: Hypertension type: primary hypertension Qualified Code(s): I10 - Essential (primary) hypertension (2) Accelerated hypertension: (3) Diabetes mellitus: Qualifiers: Diabetes mellitus complication detail: with other circulatory complications Diabetes mellitus complication status: with circulatory complication Diabetes mellitus type: type 1 Qualified Code(s): E10.59 - Type 1 diabetes mellitus with other circulatory complications (4) End stage renal disease on dialysis: (5) COPD (chronic obstructive pulmonary disease): (6) Hemodialysis catheter dysfunction: (7) Hypoglycemia: Plan Discharge orders were canceled Bloody bowel movement Monitor overnight Request CBC BMP for the morning Patient most likely will get dialyzed on Saturday and then discharged home In case hemoglobin stays stable with mild bleed I do not think patient would need an urgent EGD or colonoscopy since we cannot discontinue her dual antiplatelet therapy due to recent stent placement Reevaluate tomorrow and possible discharge Attestations 2 Medical Necessity Statement*: Continue medical management Coding Level of Care Code Acute Code for Chg Fwd Diagnoses Primary hypertension I10 Hypertension type: primary hypertension Accelerated hypertension I10 Type 1 diabetes mellitus with other circulatory complication E10.59 Diabetes mellitus complication detail: with other circulatory complications Diabetes mellitus complication status: with circulatory complication Diabetes mellitus type: type 1 End stage renal disease on dialysis N18.6; Z99.2 COPD (chronic obstructive pulmonary disease) J44.9 Hemodialysis catheter dysfunction T82.41XA Hypoglycemia E16.2
[2024-03-09 15:33] LABS: Glucose Point of Care 119 mg/dL (70-110)
--- NOTE | 2024-03-09 17:15 | PC.HD ---
Significant but asymptomatic hypotension precluded much fluid removal. BP improved with albumin administration at 90ml/hr but recurred in last hour of treatment, 79/60 with UF off and machine temp 35 so treatment terminated, Dr Khurram gaines.
[2024-03-09 20:36] LABS: Glucose Point of Care 101 mg/dL (70-110)
[2024-03-09] MEDS: lisinopril 20 mg Tablet 40 MG PO (21:07)
[2024-03-10] VITALS (7 sets, daily range): BP systolic 146–172; BP diastolic 62–88; PULSE 69–76; RESP 10–16; TEMP 36.9–37.2; O2SAT 95–98
--- NOTE | 2024-03-10 04:04 | PC.NURSE ---
patient reporting pain in abdomen 03/03 patient tearful provider notified instruction to give 1mg morphine IVP once now
[2024-03-10 04:22] LABS: Alanine Aminotransferase 10 U/L (0-33); Albumin Level 3.7 g/dL (3.5-5.2); Alkaline Phosphatase 117 U/L (35-105); Aspartate Amino Transferase 46 U/L (0-32); Blood Urea Nitrogen 22 mg/dL (6-20); Calcium 8.6 mg/dL (8.5-10.5); Carbon Dioxide 24 mmol/L (22-29); Chloride 103 mmol/L (98-107); Creatinine Clr Calc Pharmacy 12.6917; Globulin 3.1 g/dL (1.3-4.6); Glomerular Filtration Rate 10.2 mL/min (90-130); Glucose 127 mg/dL (65-115); Magnesium 1.9 mg/dL (1.7-2.3); Osmolality Calculated 297 mOsm/kg (285-295); Phosphorus 5.1 mg/dL (2.5-4.5); Sodium 141 mmol/L (136-145); Total Bilirubin 0.3 mg/dL (0.15-1.2); Total Protein 6.8 g/dL (6.6-8.7)
[2024-03-10] MEDS: morphine 4 mg/mL SDV 1 mL 1 MG IVP (04:42)
[2024-03-10] MEDS: heparin 5,000 unit/mL INJ 1 mL 5000 UNIT SUBCUT (04:46)
[2024-03-10 06:28] LABS: Glucose Point of Care 142 mg/dL (70-110)
[2024-03-10] MEDS: metroNIDAZOLE IV 500 MG/100 ML PREMIX 100 MG IV (08:10)
[2024-03-10] MEDS: sevelamer 800 mg Tablet 1600 MG PO ×2 (08:10→12:07)
[2024-03-10] MEDS: amlodipine 5 mg Tablet PO (08:11)
[2024-03-10] MEDS: hyDRALAzine 25 mg Tablet PO ×2 (08:11→14:48)
[2024-03-10] MEDS: carvedilol 25 mg Tablet PO (08:11)
[2024-03-10] MEDS: ticagrelor 90 mg Tablet PO (08:11)
[2024-03-10] MEDS: vancomycin 125 mg Capsule PO ×2 (08:11→12:09)
[2024-03-10] MEDS: aspirin 81 mg EC Tablet PO (08:11)
--- NOTE | 2024-03-10 08:43 | PM.DCS ---
Discharge Providers Date of Admission: 03/05/24 14:18 Date of Discharge: March 10, 2024 Attending Provider at Admission: Austin Che MD Attending Provider at Discharge: Austin Che MD Primary Care Provider: SUZANNE Dias Diagnoses at Discharge Discharge Diagnosis (1) End stage renal disease on dialysis: Status: Chronic Reason for Visit Reason for Visit: abdominal pain - dialysis pt Hospital Course Hospital Course 38-year-old female, with established history of coronary disease had a stent placed this year, insulin-dependent diabetic, end-stage renal disease Saturday, started dialysis around July 2023 presented to the hospital for right flank pain. CT scan of abdomen without contrast in the ER showed colitis. Her C. difficile PCR panel is positive however toxins are not active at this time. I decided to treat her with metronidazole and p.o. vancomycin. Please note her tunneled dialysis catheter was troubleshooting, general surgery was consulted, and new tunneled dialysis catheter was placed 03/08 without any complications. We made sure that patient did not miss dual antiplatelet therapy throughout her hospitalization. No active diarrhea, she had 1 bowel movement on 03/07. Discharge Data Studies Completed and Pending Completed Studies During Hospitalization Category Date Time Status CT abdomen pelvis wo con [id number] Stat Cat Scan 03/05/24 12:45 Completed XR KUB portable [id number] Routine Exams 03/09/24 09:28 Completed Pending at discharge Category Date Time Status Comprehensive Metabolic Panel AM LABS Lab 03/11/24 04:00 Ordered Magnesium AM LABS Lab 03/11/24 04:00 Ordered Phosphorus AM LABS Lab 03/11/24 04:00 Ordered Stool Culture - Enteric [Salmonella / Shigella / Campy] Lab 03/08/24 10:09 Received Routine Radiology Impressions Abdomen/Pelvis CT 03/05/24 12:45 IMPRESSION: 1. Mild nonspecific right-sided colitis, as described above. 2. Mild circumferential urinary bladder wall thickening, likely secondary to underdistention. 3. Additional findings, as above. C-Arm Fluoroscopy 03/08/24 14:43 IMPRESSION: Intraoperative imaging during dialysis catheter placement. The longer catheter may be within the RIGHT ventricle. Position should be confirmed radiographically. Recommend chest radiograph follow-up to better determine the overall position of the catheters. KUB X-Ray 03/09/24 09:28 IMPRESSION: 1. Nonobstructive bowel gas pattern. Laboratory Results WBC 5.71 10^3/uL (3.29-11.43) 03/07/24 03:16 RBC 4.19 10^6/uL (3.85-5.65) 03/07/24 03:16 Hgb 12.20 g/dL (11.27-16.99) 03/07/24 03:16 Hct 39.8 % (36-47) 03/07/24 03:16 MCV 95.0 fl (85-98) 03/07/24 03:16 MCH 29.1 pg (27-33) 03/07/24 03:16 MCHC 30.7 g/dL (30-55) 03/07/24 03:16 RDW 17.3 % (12.1-15.1) H 03/07/24 03:16 Plt Count 141 10^3/cmm (157-399) L 03/07/24 03:16 MPV 10.2 fL (7.4-10.4) 03/07/24 03:16 Neut % (Auto) 54.6 % 03/07/24 03:16 Lymph % (Auto) 28.7 % 03/07/24 03:16 Otero % (Auto) 9.8 % 03/07/24 03:16 Eos % (Auto) 5.8 % 03/07/24 03:16 Baso % (Auto) 0.9 % 03/07/24 03:16 Neut # (Auto) 3.12 10^3/uL (1.8-7.7) 03/07/24 03:16 Lymph # (Auto) 1.6 10^3/uL (0.8-4.8) 03/07/24 03:16 Otero # (Auto) 0.6 10^3/uL (0.2-0.9) 03/07/24 03:16 Eos # (Auto) 0.3 10^3/uL (0.0-0.8) 03/07/24 03:16 Baso # (Auto) 0.1 10^3/uL (0.0-0.1) 03/07/24 03:16 Nucleated RBC % (auto) 0 % 03/07/24 03:16 Nucleated RBCs # 0.0 /100WBC 03/07/24 03:16 Specimen Type Arterial 03/05/24 11:58 Sample Site Brachial, right 03/05/24 11:58 ABG pH 7.32 (7.35-7.45) L 03/05/24 11:58 ABG pCO2 36.3 mmHg (35-45) 03/05/24 11:58 ABG pO2 102.0 mmHg (80.0-100.0) H 03/05/24 11:58 ABG PO2/FiO2 Ratio 485 03/05/24 11:58 ABG HCO3 18.8 mmol/L (22-26) L 03/05/24 11:58 ABG O2 Saturation 98.4 03/05/24 11:58 ABG Base Excess -6.5 mmol/L (-2.0-2.0) L 03/05/24 11:58 Braulio Test N/a 03/05/24 11:58 A-a O2 Gradient 0.1 mmHg (5-10) L 03/05/24 11:58 Hematocrit 40.6 % (37-47) 03/05/24 11:58 Hgb O2 Saturation 96.2 % (95-100) 03/05/24 11:58 Carboxyhemoglobin 1.2 %THgb (0.4-20.1) 03/05/24 11:58 Methemoglobin 1.0 % (0.4-1.5) 03/05/24 11:58 Total Hemoglobin 13.3 g/dL (12-16) 03/05/24 11:58 Sodium 138.0 mmol/L (131-143) 03/05/24 11:58 Potassium 5.3 mmol/L (3.5-5.0) H 03/05/24 11:58 Glucose 261.0 mg/dL (70-115) H 03/05/24 11:58 Ionized Calcium 1.2 mmol/L (1.1-1.4) 03/05/24 11:58 O2 Delivery Device Room air 03/05/24 11:58 FiO2 21.0 % 03/05/24 11:58 Cutter Apprentice Hand ID Amh 03/05/24 11:58 Sodium 141 mmol/L (136-145) 03/10/24 03:42 Potassium 4.0 mmol/L (3.5-5.1) 03/10/24 03:42 Chloride 103 mmol/L (98-107) 03/10/24 03:42 Carbon Dioxide 24 mmol/L (22-29) 03/10/24 03:42 Anion Gap 18.0 (5-19) 03/10/24 03:42 BUN 22 mg/dL (6-20) H 03/10/24 03:42 Creatinine 4.8 mg/dL (0.5-0.9) H 03/10/24 03:42 GFR Calculation 10.2 mL/min (90-130) L 03/10/24 03:42 Glucose 127 mg/dL (65-115) H 03/10/24 03:42 POC Glucose 142 mg/dL (70-110) H 03/10/24 06:25 Calculated Osmolality 297 mOsm/kg (285-295) H 03/10/24 03:42 Calcium 8.6 mg/dL (8.5-10.5) 03/10/24 03:42 Phosphorus 5.1 mg/dL (2.5-4.5) H 03/10/24 03:42 Magnesium 1.9 mg/dL (1.7-2.3) 03/10/24 03:42 Total Bilirubin 0.3 mg/dL (0.15-1.2) 03/10/24 03:42 AST 46 U/L (0-32) H 03/10/24 03:42 ALT 10 U/L (0-33) 03/10/24 03:42 Alkaline Phosphatase 117 U/L (35-105) H 03/10/24 03:42 Total Protein 6.8 g/dL (6.6-8.7) 03/10/24 03:42 Albumin 3.7 g/dL (3.5-5.2) 03/10/24 03:42 Globulin 3.1 g/dL (1.3-4.6) 03/10/24 03:42 HCG, Qual Negative (Negative) 03/05/24 11:37 Urine Color Yellow (Yellow) 03/05/24 11:50 Urine Appearance Slightly cloudy (CLEAR) 03/05/24 11:50 Urine pH 7.5 (5-7) 03/05/24 11:50 Ur Specific [place] 1.016 (1.005-1.030) 03/05/24 11:50 Urine Protein 3+ (Negative) A 03/05/24 11:50 Urine Glucose (UA) 3+ (Normal) H 03/05/24 11:50 Urine Ketones Negative (Negative) 03/05/24 11:50 Urine Blood 3+ (Negative) A 03/05/24 11:50 Urine Nitrate Negative (Negative) 03/05/24 11:50 Urine Bilirubin Negative (Negative) 03/05/24 11:50 Urine Urobilinogen 0.2 mg/dL (Negative) 03/05/24 11:50 Ur Leukocyte Esterase Negative (Negative) 03/05/24 11:50 Urine RBC 51-100 /hpf (0-2) H 03/05/24 11:50 Urine WBC 0-5 /hpf (0-5) 03/05/24 11:50 Ur Squamous Epith Cells 6-10 /hpf (0-5) 03/05/24 11:50 Amorphous Sediment Not Reportable 03/05/24 11:50 Urine Bacteria None seen /hpf (NONE) 03/05/24 11:50 Hyaline Casts 2.46 /lpf 03/05/24 11:50 Serum Ketones Negative (Negative) 03/05/24 11:37 C. difficile (PCR) Positive (Negative) H 03/07/24 13:54 C.difficile Tox Confrm Negative (Negative) 03/07/24 13:54 Hep Bs Antigen Non-reactive (Nonreactive) 03/05/24 11:37 Hep Bs Antibody 15.2 (11.5-1000) 03/05/24 11:37 Hepatitis C Antibody Non-reactive (Nonreactive) 03/05/24 11:37 Vitals Last Vital Signs Temp 98.5 F 03/10/24 08:00 Pulse 76 03/10/24 08:00 Resp 16 03/10/24 08:00 BP 162/88 03/10/24 08:00 Pulse Ox 95 03/10/24 08:00 O2 Del Method Room Air 03/10/24 08:00 Discharge Plan Discharge Patient Disposition: Home Condition: Stable Prescriptions: New vancomycin 125 mg Capsule 125 mg PO QID 8 Days Qty: 32 0RF metronidazole 500 mg tablet 500 mg PO BID 7 Days Qty: 14 0RF Continued (DME) Dexcom G6 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 Bag Machine Operator Misc See Rx Instructions .Route Qty: 1 0RF Rx Instructions: As directed (DME) Dexcom G6 Sensor Device See Rx Instructions .Route Qty: 3 0RF Rx Instructions: As directed (DME) Dexcom G6 Transmitter Device See Rx Instructions .Route Qty: 1 0RF Rx Instructions: As directed aspirin 81 mg tablet,delayed release (DR/EC) 81 mg PO QAM fluticasone furoate-vilanterol [Breo Ellipta] 100-25 mcg/dose Blister With Device 1 inh INHALATION DAILY PRN (Reason: Shortness Of Breath) sevelamer carbonate 800 mg Tablet 800 mg PO TID Qty: 90 0RF atorvastatin 40 mg tablet 40 mg PO BEDTIME clonidine HCl 0.1 mg tablet See Rx Instructions .ROUTE .COMPLEX PRN (Reason: Blood Pressure) Rx Instructions: TAKE 1 TABLET IF SYSTOLIC BLOOD PRESSURE IS GREATER THAN 160, REPEAT ONCE IF SYSTOLIC BLOOD PRESSURE IS STILL OVER 160 AFTER 1 HOUR. lisinopril 40 mg tablet 40 mg PO BEDTIME gabapentin 100 mg Capsule 100 mg PO TID escitalopram oxalate [Lexapro] 10 mg Tablet 10 mg PO DAILY insulin aspart U-100 [Novolog FlexPen U-100 Insulin] 100 unit/mL (3 mL) insulin pen See Rx Instructions .ROUTE .COMPLEX Qty: 15 0RF Rx Instructions: Inject, subcut, 3 times daily, after meals, based on sliding scale provided bumetanide 1 mg tablet 1 mg PO DAILY Rx Instructions: ON NON-DIALYSIS DAYS. Brilinta 90 mg tablet 90 mg PO BID carvedilol 25 mg Tablet 25 mg PO BID 30 Days Qty: 60 0RF amlodipine 10 mg Tablet 10 mg PO DAILY 30 Days Qty: 30 0RF hydralazine 50 mg Tablet 50 mg PO TID 30 Days Qty: 90 0RF Discharge Orders: Discharge Order (Routine); Ordered 03/10/24 Ordered By: Austin Che Referrals: [facility] [Outside] - 4-7 days (Keep Dialysis Appt as Scheduled on , , and Sat.) Elizabeth Dougherty FNP [Primary Care Provider] - 03/11/24 10:20 am Patient Instructions: Metronidazole (By mouth), Heart Failure (DC), Dialysis Diet (DC), Vancomycin Resistant Staphylococcus Aureus Infection (DC), Acute Wound Care (DC), Hemodialysis (DC), CHF Stoplight, Opioid Safety, Post Anesthesia Care Discharge Attestations Time Spent in Discharge Care*: greater than 30 min Status at Discharge: Cognitive status at discharge: cognitively intact, Behavioral status at discharge: cooperative and independent in ADL's, Quality Metrics Clinical Quality Measures [ No reported AMI, CVA or VTE this stay] Coding Level of Care Code Acute Code for Chg Fwd Diagnoses End stage renal disease on dialysis N18.6; Z99.2
--- NOTE | 2024-03-10 08:50 | P.PN_ITS ---
Subjective 2 Subjective: s/p HD yesterday Medications: Reviewed: Yes Vitals/I&O/Wt Last Vital Signs Temp 98.5 F 03/10/24 08:00 Pulse 76 03/10/24 08:00 Resp 16 03/10/24 08:00 BP 162/88 03/10/24 08:00 Pulse Ox 95 03/10/24 08:00 O2 Del Method Room Air 03/10/24 08:00 03/09/24 03/10/24 03/10/24 22:59 06:59 14:59 Intake Total 2050 / 2250 100 / 2350 Output Total 1586 / 1586 Balance 464 / 664 100 / 764 Weight last 48 hrs Weight 57 kg Weight 57 kg Weight 57 kg Weight 57.5 kg Physical Exam 2 Narrative: No apparent respiratory distress lying in bed. Vital signs stable. HEENT normocephalic atraumatic neck is supple lungs are clear. Heart is regular +s1, s2 abdomen is soft less tender, positive bowel sounds. extremities have no edema. Patient has a right anterior chest wall permacath. Neuro awake alert oriented x 3 positive neuropathy. Patient was seen and examined using audiovisual equipment with the aide of a nurse. Data 03/07/24 03:16 03/10/24 03:42 A&P Assessment and plan (1) End stage renal disease on dialysis: 38-year-old lady ESRD diabetic gastroparesis history of small bowel intussusception, coronary artery disease, hypertension. Patient had recurrent episodes of abdominal and back pain. Patient is status post a noncontrast CT scan on February 28, 2024 showing nonspecific bladder wall thickening question of cystitis, atrophic pancreas no kidney stones or hydronephrosis. She had a CT scan of the abdomen and pelvis with contrast on February 14, 2024. Patient is here again with abdominal pain and nausea. Patient is recently seen by cardiology, Dr. Elza Carranza. 1. Abdominal pain chest pain -as per cardiology and medicine. Please note that patient had scarred kidneys question of cystitis. Urinalysis reviewed 3+ protein 2+ glucose 3+ blood negative ketones, 51-100 RBCs negative leukesterase negative white cells. This seems atypical for an infection. Given this abnormal finding on her bladder CT scan and hematuria. Please ensure the patient is seen by urology. This can be done as an inpatient or soon after discharge. 2. HTN : Blood pressure stable 3. ESRD - HD TTS - PC replaced , HD done yesterday 4. DM per PMD 5. Hemoglobin - patient may be volume depleted. No Epogen. 6. Hyperphosphatemia -HD and phosphorus binder. Medications reviewed. Informed consent for telehealth was obtained by the patient. Informed consent for dialysis was obtained. Plan Hemodialysis catheter is not working. Discussed with Dr. Che for a new catheter. If it is replaced hopefully dialysis tomorrow and discharge soon. Attestations 2 Medical Necessity Statement*: per medicine Coding Level of Care Code Acute Code for Chg Fwd Diagnoses End stage renal disease on dialysis N18.6; Z99.2
[2024-03-10] MEDS: ondansetron 2 mg/ML SDV 2 mL 4 MG IVP (09:06)
[2024-03-10 11:27] LABS: Basophils % 0.9 %; Eosinophils # 0.3 10^3/uL (0.0-0.8); Eosinophils % 5.3 %; Hematocrit 36.1 % (36-47); Lymphocytes # 1.2 10^3/uL (0.8-4.8); Lymphocytes % 24.5 %; Mean Corpuscular HGB Conc 30.5 g/dL (30-55); Mean Corpuscular Hemoglobin 29.5 pg (27-33); Mean Corpuscular Volume 96.8 fl (85-98); Mean Platelet Volume 10.4 fL (7.4-10.4); Monocytes # 0.5 10^3/uL (0.2-0.9); Monocytes % 11.5 %; Neutrophils # 2.72 10^3/uL (1.8-7.7); Neutrophils % 57.8 %; Nucleated Red Blood Cells % 0 %; Platelet Count 137 10^3/cmm (157-399); Red Blood Count 3.73 10^6/uL (3.85-5.65); Red Cell Distribution Width 16.7 % (12.1-15.1)
[2024-03-10 11:30] LABS: Glucose Point of Care 137 mg/dL (70-110)
--- NOTE | 2024-03-10 15:15 | PC.NURSE ---
discharge instructions given and explained.pt verb understanding of instructions.discharged via w/c to exit at this time.pt's mother to drive pt home.
== END 2024-03-10 15:16 | disposition home or self-care (01) | DRG 371 ==
LOC: ER 13:33 → ICU 14:18 → CSU 15:07
PROVIDERS: Family Medicine; Internal Medicine Nephrology; Student in an Organized Health Care Education/Training Program; Admitting Provider Internal Medicine; Emergency Provider Family Medicine; PCP Nurse Practitioner Family; Visit Provider Internal Medicine
PROC: 0J2TXYZ Change Other Device in Trunk Subcutaneous Tissue and Fascia, External Approach (ICD-10-PCS; principal; 2024-03-08 14:00)
DX: A04.72 Enterocolitis due to Clostridium difficile, not specified as recurrent (principal); N18.6 End stage renal disease; I13.2 Hypertensive heart and chronic kidney disease with heart failure and with stage 5 chronic kidney disease, or end stage renal disease; I50.32 Chronic diastolic (congestive) heart failure; K92.1 Melena; T82.49XA Other complication of vascular dialysis catheter, initial encounter; E10.22 Type 1 diabetes mellitus with diabetic chronic kidney disease; E10.65 Type 1 diabetes mellitus with hyperglycemia; Z99.2 Dependence on renal dialysis; E10.43 Type 1 diabetes mellitus with diabetic autonomic (poly)neuropathy; K31.84 Gastroparesis; E10.42 Type 1 diabetes mellitus with diabetic polyneuropathy; E10.59 Type 1 diabetes mellitus with other circulatory complications; F41.9 Anxiety disorder, unspecified; E86.0 Dehydration; I16.0 Hypertensive urgency; I95.9 Hypotension, unspecified; I25.10 Atherosclerotic heart disease of native coronary artery without angina pectoris; E78.5 Hyperlipidemia, unspecified; I27.20 Pulmonary hypertension, unspecified; N31.9 Neuromuscular dysfunction of bladder, unspecified; D63.1 Anemia in chronic kidney disease; K76.0 Fatty (change of) liver, not elsewhere classified; J44.9 Chronic obstructive pulmonary disease, unspecified; Z79.82 Long term (current) use of aspirin; Z79.4 Long term (current) use of insulin; Z95.5 Presence of coronary angioplasty implant and graft; Z90.49 Acquired absence of other specified parts of digestive tract; Z89.421 Acquired absence of other right toe(s); Z90.2 Acquired absence of lung [part of]; Z86.16 Personal history of COVID-19; Z87.891 Personal history of nicotine dependence; Z87.440 Personal history of urinary (tract) infections; Y73.8 Miscellaneous gastroenterology and urology devices associated with adverse incidents, not elsewhere classified
CPT/HCPCS: 36415; 36416; 36600; 74018; 74176; 77001; 80051; 80053; 81001; 82009; 82330; 82805; 82962; 83735; 84100; 84703; 85025; 86706; 86803; 87045; 87086; 87324; 87340; 87427; 87449; 87493; 90935; 96365; 96366; 96372; 96375; 96376; 99285; 99291; J0360; J0690; J0692; J1610; J1644; J1815; J2250; J2270; J2405; J2704; J2997; J3010; J3490; J7799; P9047; Q3014

== ENCOUNTER 2024-03-24 12:50 | Emergency (ER) | payer MEDICARE, MEDICAID, SELFPAY ==
[2024-03-24 12:56] VITALS: BP 186/94; PULSE 71; RESP 17; TEMP 36.4; O2SAT 100; BMI 23.4
--- NOTE | 2024-03-24 15:07 | XR_ITS ---
WS: [email or web address] Exam: XR hip RT 2-3V wo/w pel* [id number] Date/Time of Exam: 03/24/2024 3:15 PM Reason For Exam: fall, one view pelvis too please Compared to outside radiographs performed 08/25/2023. No acute fracture or dislocation. Slight degenerative change of the acetabulum however the joint comp artment is relatively well-maintained. The pelvis is unremarkable. The LEFT hip is intact. XR/XR hip RT 2-3V wo/w pel* [id number] IMPRESSION: 1. No fracture or other significant finding.
--- NOTE | 2024-03-24 15:07 | XR_ITS ---
WS: [email or web address] Exam: XR tibia fibula RT 2V [id number] Date/Time of Exam: 03/24/2024 3:15 PM Reason For Exam: fall No fracture or dislocation. Unremarkable soft tissues. XR/XR tibia fibula RT 2V [id number] IMPRESSION: 1. No fracture or other significant finding.
--- NOTE | 2024-03-24 15:07 | XR_ITS ---
WS: [email or web address] Exam: XR foot RT min 3V* [id number] Date/Time of Exam: 03/24/2024 3:14 PM Reason For Exam: fall Comparison 06/29/2023. No acute fracture or dislocation. The second toe is surgically absent. Hallux valgus noted. Degenerat hung changes in the IP joints and midfoot joints. No soft tissue foreign bodies are seen. XR/XR foot RT min 3V* [id number] IMPRESSION: 1. No acute fracture. Additional nonemergent findings as above.
--- NOTE | 2024-03-24 15:08 | ED_ITS ---
HPI - Fall General: Chief Complaint: Extremity Problem,Nontraumatic Stated Complaint: leg pain Time Seen by Provider: 03/24/24 14:27 Source: patient Mode of arrival: wheelchair Limitations: no limitations History of Present Illness: Patient is a 38-year-old female who presents to ED today with complaint of right leg pain. Patient states she accidentally tripped and fell yesterday and struck her right lower leg. She feels like afterwards she was not immediately having any discomfort but states she woke up this morning with pain in her foot radiating up her leg and into her hip. She has not noticed any swelling or redness to the leg. MD complaint: fall Onset (ago): day(s) (yesterday) Fall from: standing Fall witnessed: no Place fall occurred: home Loss of consciousness: None Prolonged down time: no Symptoms prior to fall: none Context: tripped/slipped Location of injury - extremities: Right: lower leg and foot Severity: moderate Associated symptoms-after fall: Reports no associated symptoms; Denies chest pain, difficulty walking or neck pain Related Data Home Medications Medication Instructions Recorded Confirmed fluticasone furoate 100 1 inh inhalation DAILY PRN 09/14/23 03/05/24 mcg-vilanterol 25 mcg/dose Shortness Of Breath inhalation powder (Breo Ellipta) atorvastatin 40 mg tablet 40 mg PO BEDTIME 11/27/23 03/05/24 clonidine HCl 0.1 mg tablet See Rx Instructions .Route 11/27/23 03/05/24 .COMPLEX PRN Blood Pressure lisinopril 40 mg tablet 40 mg PO BEDTIME 11/27/23 03/05/24 aspirin 81 mg tablet,delayed 81 mg PO QAM 12/20/23 03/05/24 release escitalopram oxalate 10 mg tablet 10 mg PO DAILY 12/27/23 03/05/24 (Lexapro) gabapentin 100 mg capsule 100 mg PO TID 12/27/23 03/05/24 bumetanide 1 mg tablet 1 mg PO DAILY 02/11/24 03/05/24 ticagrelor 90 mg tablet (Brilinta) 90 mg PO BID 02/11/24 03/05/24 Previous Rx's Medication Instructions Recorded blood-glucose meter,continuous #1 ea 06/12/22 (Dexcom G6 Web Press Operator Assistant) blood-glucose sensor (Dexcom G6 #3 ea 06/12/22 Sensor device) blood-glucose transmitter (Dexcom #1 ea 06/12/22 G6 Transmitter device) sevelamer carbonate 800 mg tablet 800 mg PO TID #90 tabs 09/16/23 insulin aspart U-100 100 unit/mL See Rx Instructions .Route 01/01/24 (3 mL) subcutaneous pen (Novolog .COMPLEX #15 mL FlexPen U-100 Insulin aspart) Allergies Allergy/AdvReac Type Severity Reaction Status Date / Time acetaminophen AdvReac Mild ADR-Gastrointestinal Verified 03/05/24 11:00 Upset Review of Systems Card: Denies: chest pain Resp: Denies: dyspnea Musc: Reports: extremity pain and joint pain; Denies: neck pain, back pain, extremity swelling, joint swelling, joint redness, joint warmth or limited range of motion Neuro: Denies: numbness in extremities, weakness in extremities, sensory changes or difficulty walking PFSH ED PFSH: Medical History Dialysis complication Hypoglycemia Hemodialysis catheter dysfunction Hyperkalemia Colitis Accelerated hypertension End stage renal disease on dialysis COPD (chronic obstructive pulmonary disease) Diabetes mellitus ESRD (end stage renal disease) Transaminitis Intractable nausea and vomiting Hyperlipidemia HTN (hypertension) CHF (congestive heart failure), NYHA class III Pulmonary hypertension CAD (coronary artery disease) Neurogenic bladder COVID-19 Tobacco dependence Drug abuse Anemia Community acquired pneumonia Esophagitis Long-term insulin use History of pancreatitis Celiac disease Recurrent UTI Non-alcoholic fatty liver disease Arnold-Chiari malformation Diabetic gastroparesis -continue Reglan Diabetic neuropathy associated with type 1 diabetes mellitus Headache, common migraine, intractable, with status migrainosus Pleural effusion 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 History of lung surgery -s/p LLL lobectomy secondary to cavitary pneumonia (2017) History of endoscopy History of cholecystectomy Family History Grandfather Diabetes Mother CAD (coronary artery disease) Diabetes Brother Acute lymphoblastic leukemia (ALL) in child Other Heart disease Hypertension Social History Smoking and tobacco/nicotine status: former use of tobacco/nicotine Quit status (tobacco/nicotine): has quit using Former quit date comment: She previously smoked <1/2 PPD, quit July 2023. Second hand smoke exposure: Yes Alcohol intake: never Substance/Drug Use: current Household members: children Housing: House Marital status: Single Current occupational status: unemployed Physical Exam Const: COMMON NORMALS: no acute distress, patient oriented x3, no limitations and alert GENERAL APPEARANCE: cooperative ORIENTATION/CONSCIOUSNESS: Yes awake, Yes oriented to person, Yes oriented to place and Yes oriented to time HENMT: COMMON NORMALS: normocephalic and atraumatic HEAD & SCALP: normal to inspection, normocephalic and atraumatic Neck/C-Spine: CERVICAL SPINE: No Cervical spine tenderness Resp: COMMON NORMALS: normal respiratory effort Back/Pelvis: COMMON NORMALS: thoracic and lumbar spine normal to inspection Extremity: COMMON NORMALS: full ROM and capillary refill normal NARRATIVE EXTREMITY EXAM: mild bilateral symmetrical edema-states at baseline GENERAL: Yes normal exam except as noted RIGHT LOWER EXTREMITY: Yes hip joint (TTP lateral hip; full passive ROM), Yes lower leg (contusion anterior R lower leg) and Yes foot & digits (mild lateral dorsal pain; no bony deformity) Right foot and digits: Yes neurovascular exam (normal) Neuro: COMMON NORMALS: patient oriented x3, moves all extremities, no focal motor deficits, no sensory deficits noted and gait normal SENSORIUM/ORIENTATION: Yes alert, Yes oriented to person, Yes oriented to place and Yes oriented to time Course Vital Signs: Vital signs: Vital Signs Temperature 97.6 F 03/24/24 12:56 Pulse Rate 71 03/24/24 12:56 Respiratory Rate 16 03/24/24 15:36 Blood Pressure 186/94 03/24/24 12:56 Pulse Oximetry 100 03/24/24 12:56 Oxygen Delivery Me thod Room Air 03/24/24 12:56 MDM - Fall Medical Decision Making XRs unremarkable. She was ambulatory here without difficulty or assistance. She will be allowed discharge and can follow-up with her primary care provider. Lab Data Radiology Impressions Foot X-Ray 03/24/24 15:07 IMPRESSION: 1. No acute fracture. Additional nonemergent findings as above. Hip/Pelvis X-Ray 03/24/24 15:07 IMPRESSION: 1. No fracture or other significant finding. Tibia/Fibula X-Ray 03/24/24 15:07 IMPRESSION: 1. No fracture or other significant finding. All radiology interpretation(s) finalized by discharge Discharge Plan Discharge Patient Disposition: Home Clinical Impression: Fall, Acute pain of right lower extremity Condition: Stable Prescriptions: No Action (DME) Dexcom G6 Web Press Operator Assistant Misc See Rx Instructions .Route Qty: 1 0RF Rx Instructions: As directed (DME) Dexcom G6 Sensor Device See Rx Instructions .Route Qty: 3 0RF Rx Instructions: As directed (DME) Dexcom G6 Transmitter Device See Rx Instructions .Route Qty: 1 0RF Rx Instructions: As directed aspirin 81 mg tablet,delayed release (DR/EC) 81 mg PO QAM fluticasone furoate-vilanterol [Breo Ellipta] 100-25 mcg/dose Blister With Device 1 inh INHALATION DAILY PRN (Reason: Shortness Of Breath) sevelamer carbonate 800 mg Tablet 800 mg PO TID Qty: 90 0RF atorvastatin 40 mg tablet 40 mg PO BEDTIME clonidine HCl 0.1 mg tablet See Rx Instructions .ROUTE .COMPLEX PRN (Reason: Blood Pressure) Rx Instructions: TAKE 1 TABLET IF SYSTOLIC BLOOD PRESSURE IS GREATER THAN 160, REPEAT ONCE IF SYSTOLIC BLOOD PRESSURE IS STILL OVER 160 AFTER 1 HOUR. lisinopril 40 mg tablet 40 mg PO BEDTIME gabapentin 100 mg Capsule 100 mg PO TID escitalopram oxalate [Lexapro] 10 mg Tablet 10 mg PO DAILY insulin aspart U-100 [Novolog FlexPen U-100 Insulin] 100 unit/mL (3 mL) insulin pen See Rx Instructions .ROUTE .COMPLEX Qty: 15 0RF Rx Instructions: Inject, subcut, 3 times daily, after meals, based on sliding scale provided bumetanide 1 mg tablet 1 mg PO DAILY Rx Instructions: ON NON-DIALYSIS DAYS. Brilinta 90 mg tablet 90 mg PO BID Discharge Orders: Discharge ED (Routine); Ordered 03/24/24 Ordered By: Fany Machado Referrals: Elizabeth Dougherty, [employer] [Primary Care Provider] - Activity Restrictions/Additional Instructions: X-ray imaging of your right foot, lower leg, and hip were obtained and unremarkable. You are ambulatory here in the emergency department without difficulty or assistance. I would like you to follow-up with your primary care provider within a week or so for reevaluation if symptoms do not seem to be improving. Coding Level of Care Code ED Pul[employer] Making Plant Operator for Reji Chandler
[2024-03-24 15:36] VITALS: RESP 16
[2024-03-24] MEDS: morphine 4 mg/mL SDV 1 mL IM (15:36)
[2024-03-24 16:01] VITALS: BP 183/92; PULSE 71; RESP 16; O2SAT 98
== END 2024-03-24 16:02 | disposition home or self-care (01) ==
PROVIDERS: Emergency Provider Physician Assistant; PCP Nurse Practitioner Family
DX: M79.604 Pain in right leg (principal); M79.671 Pain in right foot; M25.551 Pain in right hip; W01.0XXA Fall on same level from slipping, tripping and stumbling without subsequent striking against object, initial encounter; Y92.009 Unspecified place in unspecified non-institutional (private) residence as the place of occurrence of the external cause
CPT/HCPCS: 73502; 73590; 73630; 96372; 99284; J2270

== ENCOUNTER 2024-03-25 13:41 | Inpatient (IN) | payer MEDICARE, MEDICAID, SELFPAY ==
[2024-03-25] VITALS (20 sets, daily range): BP systolic 98–182; BP diastolic 63–109; PULSE 66–106; RESP 9–22; TEMP 36.7; O2SAT 93–99; BMI 23.4
--- NOTE | 2024-03-25 13:41 | ECG_ITS ---
[facility] Test Date: 2024-03-25 Pat Name: Donita Aguilar Department: Room: Gender: Female Thermodynamicist: : 1985 Requested By: Ronny Ayala Order Number: [id number] Faviola MD: Gilberto Eugene M.D. Measurements Intervals [place] Rate: 67 P: 39 MO: 205 QRS: -17 QRSD: 121 T: 71 QT: 443 QTc: 469 Interpretive Statements SINUS RHYTHM MODERATE INTRAVENTRICULAR CONDUCTION DELAY [110+ ms QRS DURATION] NONSPECIFIC T-WAVE ABNORMALITY Compared to ECG 02/11/2024 17:02:59 Intraventricular conduction delay now present T-wave abnormality now present Myocardial infarct finding no longer present Electronically Signed On 03-25-2024 23:28:46 CDT by Gilberto Eugene M.D. [id number] f
--- NOTE | 2024-03-25 13:46 | XR_ITS ---
WS: [id number] Exam: XR chest 1V portable [id number] Date/Time of Exam: 03/25/2024 1:46 PM Reason For Exam: cp Comparison 01/09/2024. The lungs are hyperinflated and clear. Heart size top limits normal. The mediastinum is normal in con tour. A RIGHT subclavian double lumen dialysis catheter ends at the cavoatrial junction. Signs of cor onary artery stenting. XR/XR chest 1V portable [id number] IMPRESSION: 1. No acute cardiopulmonary process.
--- NOTE | 2024-03-25 13:50 | ED_ITS ---
HPI - Chest Pain 2 General: Chief Complaint: Chest Pain Stated Complaint: CP Time Seen by Provider: 03/25/24 13:46 Source: patient and EMS Mode of arrival: EMS Limitations: no limitations History of Present Illness: 38-year-old female who is very well-know n to the ER has a history of CHF along with end-stage renal disease she states she is at dialysis today started having chest pain she had sharp chest pain in the center of her chest she rates today 7 out of 10 EMS gave her nitro she had no relief she denies any worsening proving factors Associated symptoms: Deny abdominal pain, dyspnea, fever(s), nausea or vomiting Related Data Home Medications Medication Instructions Recorded Confirmed fluticasone furoate 100 1 inh inhalation DAILY PRN 09/14/23 03/25/24 mcg-vilanterol 25 mcg/dose Shortness Of Breath inhalation powder (Breo Ellipta) atorvastatin 40 mg tablet 40 mg PO BEDTIME 11/27/23 03/25/24 clonidine HCl 0.1 mg tablet See Rx Instructions .Route 11/27/23 03/25/24 .COMPLEX PRN Blood Pressure lisinopril 40 mg tablet 40 mg PO BEDTIME 11/27/23 03/25/24 aspirin 81 mg tablet,delayed 81 mg PO QAM 12/20/23 03/25/24 release escitalopram oxalate 10 mg tablet 10 mg PO DAILY 12/27/23 03/25/24 (Lexapro) gabapentin 100 mg capsule 100 mg PO TID 12/27/23 03/25/24 bumetanide 1 mg tablet 1 mg PO DAILY 02/11/24 03/25/24 Previous Rx's Medication Instructions Recorded blood-glucose meter,continuous #1 ea 06/12/22 (Dexcom G6 Fence Post Cutter) blood-glucose sensor (Dexcom G6 #3 ea 06/12/22 Sensor device) blood-glucose transmitter (Dexcom #1 ea 06/12/22 G6 Transmitter device) sevelamer carbonate 800 mg tablet 800 mg PO TID #90 tabs 09/16/23 insulin aspart U-100 100 unit/mL See Rx Instructions .Route 01/01/24 (3 mL) subcutaneous pen (Novolog .COMPLEX #15 mL FlexPen U-100 Insulin aspart) Allergies Allergy/AdvReac Type Severity Reaction Status Date / Time acetaminophen AdvReac Mild ADR-Gastrointestinal Verified 03/25/24 13:54 Upset Review of Systems 2 Const: Denies: fever(s), chills, body aches or change in appetite ENMT: Denies: throat pain or dental pain Card: Reports: chest pain Resp: Denies: dyspnea GI: Denies: abdominal pain, nausea, vomiting or diarrhea Musc: Denies: neck pain or back pain Skin/Breast: Denies: rash Neuro: Denies: headache(s) PFSH ED 2 PFSH: Medical History Dialysis complication Hypoglycemia Hemodialysis catheter dysfunction Hyperkalemia Colitis Accelerated hypertension End stage renal disease on dialysis COPD (chronic obstructive pulmonary disease) Diabetes mellitus ESRD (end stage renal disease) Transaminitis Intractable nausea and vomiting Hyperlipidemia HTN (hypertension) CHF (congestive heart failure), NYHA class III Pulmonary hypertension CAD (coronary artery disease) Neurogenic bladder COVID-19 Tobacco dependence Drug abuse Anemia Community acquired pneumonia Esophagitis Long-term insulin use History of pancreatitis Celiac disease Recurrent UTI Non-alcoholic fatty liver disease Arnold-Chiari malformation Diabetic gastroparesis -continue Reglan Diabetic neuropathy associated with type 1 diabetes mellitus Headache, common migraine, intractable, with status migrainosus Pleural effusion 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 History of lung surgery -s/p LLL lobectomy secondary to cavitary pneumonia (2017) History of endoscopy History of cholecystectomy Family History Grandfather Diabetes Mother CAD (coronary artery disease) Diabetes Brother Acute lymphoblastic leukemia (ALL) in child Other Heart disease Hypertension Social History Smoking and tobacco/nicotine status: former use of tobacco/nicotine Quit status (tobacco/nicotine): has quit using Former quit date comment: She previously smoked <1/2 PPD, quit July 2023. Second hand smoke exposure: Yes Alcohol intake: never Substance/Drug Use: current Household members: children Housing: House Marital status: Single Current occupational status: unemployed Physical Exam 2 Const: COMMON NORMALS: no acute distress, patient oriented x3 and healthy appearing HENMT: COMMON NORMALS: normocephalic and atraumatic HEAD & SCALP: n ormocephalic and atraumatic Eye: COMMON NORMALS: Equal, round and reactive pupils present and EOMs intact bilaterally PUPIL: Yes Equal, round and reactive pupils present Neck/C-Spine: COMMON NORMALS: full ROM and supple Chest: COMMONS NORMALS: normal inspection of the chest Resp: COMMON NORMALS: normal respiratory effort, No retractions, No use of accessory muscles and clear to auscultation bilaterally AUSCULTATION: clear to auscultation bilaterally Cardio: COMMON NORMALS: regular rate, regular rhythm and No murmurs present (Cardio) RATE: regular rate RHYTHM: regular rhythm Extremity: COMMON NORMALS: normal to inspection and full ROM Neuro: COMMON NORMALS: patient oriented x3, moves all extremities and no focal motor deficits Psych: COMMON NORMALS: mental status grossly normal, Normal thought process present and cooperative THOUGHT PROCESS: Normal thought process present Skin: COMMON NORMALS: no rashes or lesions noted and no wounds GENERAL SKIN EXAM: no rashes or lesions noted Course 2 Vital Signs: Vital signs: Vital Signs Temperature 98.1 F 03/25/24 13:43 Pulse Rate 69 03/25/24 15:14 Respiratory Rate 16 03/25/24 15:10 Blood Pressure 177/99 03/25/24 13:43 Pulse Oximetry 95 03/25/24 15:10 Oxygen Delivery Me thod Room Air 03/25/24 15:10 MDM - Chest Pain Medical Decision Making Patient presents here with hyperkalemia she is on dialysis and has missed last 2 dialysis appointments. Her troponin here is at her baseline EKG showed no acute changes we will start her on insulin albuterol calcium and a D10 bolus I spoke to the hospitalist will admit to the ICU will contact nephrology as well Medical Records I reviewed the patient's medical records. Lab Data I reviewed the patient's lab results. 03/25/24 14:17 03/25/24 14:17 Radiology Impressions Chest X-Ray 03/25/24 13:46 IMPRESSION: 1. No acute cardiopulmonary process. Laboratory Results WBC 7.04 10^3/uL (3.29-11.43) 03/25/24 14:17 RBC 3.67 10^6/uL (3.85-5.65) L 03/25/24 14:17 Hgb 10.70 g/dL (11.27-16.99) L 03/25/24 14:17 Hct 33.9 % (36-47) L 03/25/24 14:17 MCV 92.4 fl (85-98) 03/25/24 14:17 MCH 29.2 pg (27-33) 03/25/24 14:17 MCHC 31.6 g/dL (30-55) 03/25/24 14:17 RDW 14.5 % (12.1-15.1) 03/25/24 14:17 Plt Count 172 10^3/cmm (157-399) 03/25/24 14:17 MPV 10.5 fL (7.4-10.4) H 03/25/24 14:17 Neut % (Auto) 64.3 % 03/25/24 14:17 Lymph % (Auto) 22.2 % 03/25/24 14:17 Nuckolls % (Auto) 8.1 % 03/25/24 14:17 Eos % (Auto) 4.4 % 03/25/24 14:17 Baso % (Auto) 0.9 % 03/25/24 14:17 Neut # (Auto) 4.53 10^3/uL (1.8-7.7) 03/25/24 14:17 Lymph # (Auto) 1.6 10^3/uL (0.8-4.8) 03/25/24 14:17 Nuckolls # (Auto) 0.6 10^3/uL (0.2-0.9) 03/25/24 14:17 Eos # (Auto) 0.3 10^3/uL (0.0-0.8) 03/25/24 14:17 Baso # (Auto) 0.1 10^3/uL (0.0-0.1) 03/25/24 14:17 Nucleated RBC % (auto) 0 % 03/25/24 14:17 Nucleated RBCs # 0.0 /100WBC 03/25/24 14:17 Sodium 136 mmol/L (136-145) 03/25/24 14:17 Potassium 7.2 mmol/L (3.5-5.1) H* 03/25/24 14:17 Chloride 101 mmol/L (98-107) 03/25/24 14:17 Carbon Dioxide 22 mmol/L (22-29) 03/25/24 14:17 Anion Gap 20.2 (5-19) H 03/25/24 14:17 BUN 55 mg/dL (6-20) H 03/25/24 14:17 Creatinine 6.6 mg/dL (0.5-0.9) H* 03/25/24 14:17 GFR Calculation 7.1 mL/min (90-130) L 03/25/24 14:17 Glucose 203 mg/dL (65-115) H 03/25/24 14:17 Calculated Osmolality 303 mOsm/kg (285-295) H 03/25/24 14:17 Calcium 8.2 mg/dL (8.5-10.5) L 03/25/24 14:17 Total Bilirubin 0.3 mg/dL (0.15-1.2) 03/25/24 14:17 AST 65 U/L (0-32) H 03/25/24 14:17 ALT 36 U/L (0-33) H 03/25/24 14:17 Alkaline Phosphatase 135 U/L (35-105) H 03/25/24 14:17 Troponin T Baseline 297 ng/L (0-10) H* 03/25/24 14:17 Total Protein 6.9 g/dL (6.6-8.7) 03/25/24 14:17 Albumin 3.9 g/dL (3.5-5.2) 03/25/24 14:17 Globulin 3.0 g/dL (1.3-4.6) 03/25/24 14:17 All radiology interpretation(s) finalized by discharge EKG Data EKG 1: I personally reviewed and interpreted this EKG as follows: EKG interpretation date: 03/25/24 EKG interpretation time: 13:41 Interpretation: nsr hr [address] or t wave abnormalities qrs 121 qtc 458 Discharge Plan Discharge Patient Disposition: Admitted As Inpatient Clinical Impression: Hyperkalemia, Chest pain Condition: Stable Prescriptions: No Action (DME) Dexcom G6 Fence Post Cutter Misc See Rx Instructions .Route Qty: 1 0RF Rx Instructions: As directed (DME) Dexcom G6 Sensor Device See Rx Instructions .Route Qty: 3 0RF Rx Instructions: As directed (DME) Dexcom G6 Transmitter Device See Rx Instructions .Route Qty: 1 0RF Rx Instructions: As directed aspirin 81 mg tablet,delayed release (DR/EC) 81 mg PO QAM fluticasone furoate-vilanterol [Breo Ellipta] 100-25 mcg/dose Blister With Device 1 inh INHALATION DAILY PRN (Reason: Shortness Of Breath) sevelamer carbonate 800 mg Tablet 800 mg PO TID Qty: 90 0RF atorvastatin 40 mg tablet 40 mg PO BEDTIME clonidine HCl 0.1 mg tablet See Rx Instructions .ROUTE .COMPLEX PRN (Reason: Blood Pressure) Rx Instructions: TAKE 1 TABLET IF SYSTOLIC BLOOD PRESSURE IS GREATER THAN 160, REPEAT ONCE IF SYSTOLIC BLOOD PRESSURE IS STILL OVER 160 AFTER 1 HOUR. lisinopril 40 mg tablet 40 mg PO BEDTIME gabapentin 100 mg Capsule 100 mg PO TID escitalopram oxalate [Lexapro] 10 mg Tablet 10 mg PO DAILY insulin aspart U-100 [Novolog FlexPen U-100 Insulin] 100 unit/mL (3 mL) insulin pen See Rx Instructions .ROUTE .COMPLEX Qty: 15 0RF Rx Instructions: Inject, subcut, 3 times daily, after meals, based on sliding scale provided bumetanide 1 mg tablet 1 mg PO DAILY Rx Instructions: ON NON-DIALYSIS DAYS. Referrals: Elizabeth Dougherty FNP [Primary Care Provider] - Coding Level of Care Code ED [employer] for Reji Chandler
[2024-03-25 14:27] LABS: Basophils # 0.1 10^3/uL (0.0-0.1); Basophils % 0.9 %; Eosinophils # 0.3 10^3/uL (0.0-0.8); Eosinophils % 4.4 %; Hematocrit 33.9 % (36-47); Lymphocytes # 1.6 10^3/uL (0.8-4.8); Lymphocytes % 22.2 %; Mean Corpuscular HGB Conc 31.6 g/dL (30-55); Mean Corpuscular Hemoglobin 29.2 pg (27-33); Mean Corpuscular Volume 92.4 fl (85-98); Mean Platelet Volume 10.5 fL (7.4-10.4); Monocytes # 0.6 10^3/uL (0.2-0.9); Monocytes % 8.1 %; Neutrophils # 4.53 10^3/uL (1.8-7.7); Neutrophils % 64.3 %; Nucleated Red Blood Cells % 0 %; Platelet Count 172 10^3/cmm (157-399); Red Blood Count 3.67 10^6/uL (3.85-5.65); Red Cell Distribution Width 14.5 % (12.1-15.1); White Blood Count 7.04 10^3/uL (3.29-11.43)
[2024-03-25 14:55] LABS: Alanine Aminotransferase 36 U/L (0-33); Albumin Level 3.9 g/dL (3.5-5.2); Alkaline Phosphatase 135 U/L (35-105); Anion Gap 20.2 (5-19); Aspartate Amino Transferase 65 U/L (0-32); Blood Urea Nitrogen 55 mg/dL (6-20); Calcium 8.2 mg/dL (8.5-10.5); Carbon Dioxide 22 mmol/L (22-29); Chloride 101 mmol/L (98-107); Glomerular Filtration Rate 7.1 mL/min (90-130); Glucose 203 mg/dL (65-115); Osmolality Calculated 303 mOsm/kg (285-295); Sodium 136 mmol/L (136-145); Total Bilirubin 0.3 mg/dL (0.15-1.2); Total Protein 6.9 g/dL (6.6-8.7)
[2024-03-25] MEDS: HYDROmorphone 1 mg/mL INJ 1 mL IVP (14:56)
[2024-03-25] MEDS: ondansetron 2 mg/ML SDV 2 mL 4 MG IVP (14:58)
[2024-03-25 14:59] LABS: Potassium 7.2 mmol/L (3.5-5.1); Troponin(5th) Baseline 297 ng/L (0-10)
[2024-03-25] MEDS: albuterol 2.5 mg/3 mL Neb INHALATION (15:11)
[2024-03-25] MEDS: calcium gluconate 0.1 gm/mL 10% SDV 10mL 1 GM IVP (15:43)
[2024-03-25] MEDS: insulin regular-human 100 units/1 mL 10 UNIT IVP (15:48)
--- NOTE | 2024-03-25 16:08 | ECG_ITS ---
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 Measurements Intervals [place] Rate: 69 P: 63 [place]: 187 QRS: 12 QRSD: 110 T: 74 QT: 424 QTc: 456 Interpretive Statements SINUS RHYTHM POSSIBLE INFERIOR MYOCARDIAL INFARCTION , PROBABLY OLD [30 ms Q WAVE IN II/aVF] Compared to ECG 03/25/2024 13:41:38 Myocardial infarct finding now present Intraventricular conduction delay no longer present T-wave abnormality no longer present Electronically Signed On 03-25-2024 23:37:54 CDT by Gilberto Eugene M.D. [id number]
[2024-03-25 16:22] LABS: Glucose Point of Care 169 mg/dL (70-110)
[2024-03-25 16:26] LABS: Glucose Point of Care 189 mg/dL (70-110)
--- NOTE | 2024-03-25 16:44 | USCV_ITS ---
Donita Aguilar Age: 38 Gender: F : 1985 Exam Date: 03/25/2024 18:45 Ordering Phys: Shola Carrera MD Technologist: VIANNEY [place] [facility] [place]: chest pain, history of CHF, end-stage renal disease, on dialysis BP: 176 / 96 HR: 65 Rhythm: Sinus Technical Quality: Adequate MEASUREMENTS (Male / Female) Normal Values 2D ECHO LV Diastolic Diameter PLAX 4.0 cm 4.2 - 5.9 / 3.9 - 5.3 cm IVS Diastolic Thickness 1.9 cm 0.6 - 1.0 / 0.6 - 0.9 cm IVS Systolic Thickness 1.8 cm LVPW Diastolic Thickness 1.5 cm 0.6 - 1.0 / 0.6 - 0.9 cm LVPW Systolic Thickness 2.0 cm LVOT Diameter 1.7 cm LV Ejection Fraction 2D Teich 50.6 % LV Ejection Fraction MOD 4C 64.6 % LV Ejection Fraction MOD 2C 51.7 % LV Ejection Fraction 2C AL 52.4 % LA Diameter 2.6 cm Aorta at Sinotubular Diameter 2.4 cm IVC Diameter 1.3 cm M-MODE LA Ao Ratio MM 1.3 AV Cusp Separation MM 1.3 cm DOPPLER AV Peak Velocity 146.0 cm/s LVOT Peak Velocity 96.0 cm/s AV Area Cont Eq vti 1.7 cm squared AV Area Cont Eq pk 1.4 cm squared MV Peak Velocity 94.0 cm/s MV Area PHT 3.6 cm squared Mitral E to A Ratio 1.7 TV Peak E Velocity 53.0 cm/s PV Peak Velocity 81.0 cm/s FINDINGS Left Ventricle Left ventricle is normal in size. Moderate to severe left ventricular hypertrophy. LV systolic function is normal with EF of 55 to 60%. No regional wall motion abnormalities are seen. Right Ventricle Normal in size and function Right Atrium Normal in size Left Atrium Normal in size Mitral Valve Structurally normal mitral valve. Trace mitral regurgitation. Aortic Valve Structurally normal aortic valve. No significant stenosis or regurgitation. Tricuspid Valve Insufficient TR jet to calculate RVSP. Pulmonic Valve Not well visualized Pericardium Normal Aorta Normal in size IVC Grossly normal CONCLUSIONS Moderate to severe left ventricular hypertrophy. LV systolic function is normal with EF 55 to 60%. Trace mitral regurgitation. Compared to prior echocardiogram from 01/2024, no significant changes are seen. Riccardo Burch MD (Electronically Signed) Final Date: 26 March 2024 09:30 S
--- NOTE | 2024-03-25 16:44 | P.HP_ITS ---
Providers/Chief Complaint 2 Admitting Physician: Shola Carrera MD Primary Care Provider: SUZANNE Dias Chief Complaint: CP History of Present Illness Donita Aguilar is a 38 year old female with a past medical history of CAD status post stenting, end-stage renal disease on dialysis, history of C. difficile colitis, who presents [facility] for chest pain. Patient tells me that she missed dialysis yesterday, she did go on Saturday they took about 2 L of fluid off of her. Today she started experiencing severe substernal chest pain radiating up to the left neck, no diaphoresis, no nausea, no vomiting, no lightheadedness, no dizziness. Yesterday she did have a fall, accidental tripping, she fell hitting her right leg, continues to have moderate pain Review of Systems 2 Const: Denies: fever(s) Card: Reports: chest pain Resp: Denies: dyspnea : Denies: flank pain Medications/Allergies Home Medications Medication Instructions Recorded Confirmed Last Taken Type blood-glucose meter,continuous #1 ea 06/12/22 03/25/24 Unknown Rx (Dexcom G6 New Account Interviewer) blood-glucose sensor (Dexcom G6 #3 ea 06/12/22 03/25/24 Unknown Rx Sensor device) blood-glucose transmitter (Dexcom #1 ea 06/12/22 03/25/24 Unknown Rx G6 Transmitter device) fluticasone furoate 100 1 inh inhalation DAILY PRN 09/14/23 03/25/24 09/20/23 History mcg-vilanterol 25 mcg/dose Shortness Of Breath inhalation powder (Breo Ellipta) sevelamer carbonate 800 mg tablet 800 mg PO TID #90 tabs 09/16/23 03/25/24 03/04/24 Rx atorvastatin 40 mg tablet 40 mg PO BEDTIME 11/27/23 03/25/24 03/24/24 History clonidine HCl 0.1 mg tablet See Rx Instructions .Route 11/27/23 03/25/24 Unknown History .COMPLEX PRN Blood Pressure lisinopril 40 mg tablet 40 mg PO BEDTIME 11/27/23 03/25/24 03/24/24 History aspirin 81 mg tablet,delayed 81 mg PO QAM 12/20/23 03/25/24 03/25/24 History release escitalopram oxalate 10 mg tablet 10 mg PO DAILY 12/27/23 03/25/24 03/25/24 History (Lexapro) gabapentin 100 mg capsule 100 mg PO TID 12/27/23 03/25/24 03/04/24 History insulin aspart U-100 100 unit/mL See Rx Instructions .Route 01/01/24 03/25/24 02/10/24 Rx (3 mL) subcutaneous pen (Novolog .COMPLEX #15 mL FlexPen U-100 Insulin aspart) bumetanide 1 mg tablet 1 mg PO DAILY 02/11/24 03/25/24 Unknown History Allergies Allergy/AdvReac Type Severity Reaction Status Date / Time acetaminophen AdvReac Mild ADR-Gastrointestinal Verified 03/25/24 13:54 Upset PFSH Acute 2 PFSH: Medical History Dialysis complication Hypoglycemia Hemodialysis catheter dysfunction Hyperkalemia Colitis Accelerated hypertension End stage renal disease on dialysis COPD (chronic obstructive pulmonary disease) Diabetes mellitus ESRD (end stage renal disease) Transaminitis Intractable nausea and vomiting Hyperlipidemia HTN (hypertension) CHF (congestive heart failure), NYHA class III Pulmonary hypertension CAD (coronary artery disease) Neurogenic bladder COVID-19 Tobacco dependence Drug abuse Anemia Community acquired pneumonia Esophagitis Long-term insulin use History of pancreatitis Celiac disease Recurrent UTI Non-alcoholic fatty liver disease Arnold-Chiari malformation Diabetic gastroparesis -continue Reglan Diabetic neuropathy associated with type 1 diabetes mellitus Headache, common migraine, intractable, with status migrainosus Pleural effusion 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 History of lung surgery -s/p LLL lobectomy secondary to cavitary pneumonia (2017) History of endoscopy History of cholecystectomy Family History Grandfather Diabetes Mother CAD (coronary artery disease) Diabetes Brother Acute lymphoblastic leukemia (ALL) in child Other Heart disease Hypertension Social History Smoking and tobacco/nicotine status: former use of tobacco/nicotine Quit status (tobacco/nicotine): has quit using Former quit date comment: She previously smoked <1/2 PPD, quit July 2023. Second hand smoke exposure: Yes Alcohol intake: never Substance/Drug Use: current Household members: children Housing: House Marital status: Single Current occupational status: unemployed Vitals/I&O/Wt Last Vital Signs Temp 98.1 F 03/25/24 13:43 Pulse 69 03/25/24 16:00 Resp 16 03/25/24 15:10 BP 176/96 03/25/24 16:00 Pulse Ox 95 03/25/24 16:00 O2 Del Method Room Air 03/25/24 15:10 Weight last 48 hrs Weight 54.431 kg Physical Exam 2 Const: COMMON NORMALS: no acute distress and patient oriented x3 Resp: COMMON NORMALS: normal respiratory effort, No retractions, No use of accessory muscles and clear to auscultation bilaterally AUSCULTATION: clear to auscultation bilaterally Cardio: COMMON NORMALS: no JVD, regular rate, regular rhythm, S1 normal heart sound present and S2 normal heart sound present RATE: regular rate RHYTHM: regular rhythm HEART SOUNDS: S1 normal heart sound present and S2 normal heart sound present GI: COMMON NORMALS: Normal to inspection, nondistended, normoactive bowel sounds present, Soft to palpation and non-tender Extremity: COMMON NORMALS: no calf tenderness and no pedal edema Neuro: COMMON NORMALS: patient oriented x3 Psych: COMMON NORMALS: mental status grossly normal Data 03/25/24 14:17 03/25/24 14:17 A&P Assessment and plan (1) CHF (congestive heart failure), NYHA class III: Qualifiers: Congestive heart failure type: systolic Congestive heart failure chronicity: acute on chronic Qualified Code(s): I50.23 - Acute on chronic systolic (congestive) heart failure (2) Atherosclerotic heart disease of [place] coronary artery with other forms of angina pectoris: (3) NSTEMI (non-ST elevated myocardial infarction): (4) CAD (coronary artery disease): (5) Chest pain: (6) Hyperlipidemia: Qualifiers: Hyperlipidemia type: mixed hyperlipidemia Qualified Code(s): E78.2 - Mixed hyperlipidemia (7) Hyperkalemia: Plan Chest pain with NSTEMI ? Baseline troponin 297, EKG no acute ST-T wave changes ? Recent history of cardiac cath 11/2023 1. Severe mid LAD stenosis s/p successful revascularization with 1 stent.. 2. Mid Left Anterior Descending to Mid Left Anterior Descending was treated with a Balloon, Drug Eluting Stent, and Balloon -Echocardiogram December 2023 -.CONCLUSIONS Moderate concentric left ventricular hypertrophy. Slightly dyskinetic basal inferior wall segment.Grade III/IV diastolic dysfunction (restrictive filling pattern), severely elevated filling pressures. Normal LV size with an ejection fraction of 55%. Mildly increased left atrial size. Mild mitral valve regurgitation. There is no pericardial effusion. There are no intracardiac masses. Compared to the study from 11/27/2023, there may not be a significant change ? Plan ? Serial EKGs, serial troponins, telemetry monitoring ? Possible component of hyperkalemia? ? Heparin drip ? Aspirin, statin, Brilinta ? Beta-marii ? Cardiac echo ? Monitor closely Hyperkalemia ? Status post insulin, D10 -Will receive dialysis this afternoon End-stage renal disease, on dialysis, missed dialysis resumed today Attestations 2 Medical Necessity Statement*: Patient requires hospitalization, inpatient, but the 2 midnights, for NSTEMI, hyperkalemia, missed dialysis Diagnoses Acute on chronic systolic congestive heart failure, NYHA class 3 I50.23 Congestive heart failure type: systolic Congestive heart failure chronicity: acute on chronic Atherosclerotic heart disease of [place] coronary artery with other forms of angina pectoris I25.118 NSTEMI (non-ST elevated myocardial infarction) I21.4 CAD (coronary artery disease) I25.10 Chest pain R07.9 Mixed hyperlipidemia E78.2 Hyperlipidemia type: mixed hyperlipidemia Hyperkalemia E87.5
--- NOTE | 2024-03-25 16:45 | PC.NURSE ---
Arrived from ED, slid self to bed, ao no c/o
--- NOTE | 2024-03-25 16:47 | USCV_ITS ---
Donita Aguilar Age: 38 Gender: F : 1985 Exam Date: 03/25/2024 18:22 Ordering Phys: Shola Carrera MD Technologist: VIANNEY [place] [facility] [place]: chest pain, history of CHF, end-stage renal dz, on dialysis HISTORY: chest pain, history of CHF, end-stage renal dz, on dialysis PROCEDURES: Venous duplex imaging was performed in bilateral lower extremities. The following venous structures were evaluated: common femoral vein, profunda vein, proximal portion of the greater saphenous vein, superficial femoral vein, and the popliteal vein. In addition, the posterior tibial veins were evaluated. Serial compression, augmentation maneuvers, and spectral Doppler flow evaluation were performed, which were normal. Bilaterally, the common femoral, superficial femoral, profunda femoral, popliteal, posterior tibial, greater saphenous veins were identified and interrogated in the standard fashion. These veins were found to be easily compressible with spontaneous blood flow. No evidence of thrombus noted. CONCLUSIONS No evidence of right lower extremity DVT. No evidence of left lower extremity DVT. Bill Edgar MD (Electronically Signed) Final Date: 27 March 2024 16:29 S
[2024-03-25 17:21] LABS: Troponin 5 2HR 282.9 ng/L (0-10); Troponin 5 2HR Delta -14.1 ABS# (0-10)
[2024-03-25 17:26] LABS: Glucose Point of Care 95 mg/dL (70-110)
[2024-03-25] MEDS: aspirin 325 mg EC Tablet PO (17:46)
[2024-03-25] MEDS: ticagrelor 90 mg Tablet PO (17:47)
[2024-03-25] MEDS: carvedilol 3.125 mg Tablet PO (17:47)
[2024-03-25] MEDS: pantoprazole 40 mg SDV IVP (17:47)
[2024-03-25] MEDS: heparin drip 25,000 UNIT/500 ML PREMIX 17 UNIT IV (17:48)
[2024-03-25 17:56] LABS: Thyroid Stimulating Hormone 3.89 uIU/mL (0.27-4.20)
[2024-03-25] MEDS: heparin, porcine 1,000 unit/mL INJ 10 mL 1000 UNIT IV (18:06)
[2024-03-25] MEDS: heparin 5,000 unit/mL INJ 1 mL IVP (18:20)
[2024-03-25 18:31] LABS: NT Pro B Type Natriuretic Pept 61936 pg/mL (0-125)
[2024-03-25] MEDS: morphine 4 mg/mL SDV 1 mL 2 MG IVP ×2 (18:42→22:38)
[2024-03-25] MEDS: albumin 12.5 GM/50 ML VIAL IV ×3 (19:05→20:13)
[2024-03-25] MEDS: heparin, porcine 1,000 unit/mL INJ 10 mL 10000 UNIT INTRACATH (19:25)
--- NOTE | 2024-03-25 20:19 | ECG_ITS ---
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 Measurements Intervals [place] Rate: 65 P: 22 GA: 178 QRS: 23 QRSD: 110 T: 114 QT: 456 QTc: 474 Interpretive Statements SINUS RHYTHM MODERATE T-WAVE ABNORMALITY, CONSIDER LATERAL ISCHEMIA [-0.1+ mV T-WAVE IN I/aVL/V5/V6] Poor R wave progression Compared to ECG 03/25/2024 16:08:30 T-wave abnormality now present Possible ischemia now present Myocardial infarct finding no longer present Electronically Signed On 03-25-2024 23:37:29 CDT by Gilberto Eugene M.D. [email or web address]
[2024-03-25 20:44] LABS: Troponin 5 6HR 247.7 ng/L (0-10); Troponin 5 6HR Delta -49.3 ng/L (0-12)
[2024-03-25 21:15] LABS: Glucose Point of Care 85 mg/dL (70-110)
[2024-03-25] MEDS: gabapentin 100 mg Capsule PO (21:32)
[2024-03-25] MEDS: atorvastatin 40 mg Tablet PO (21:32)
[2024-03-25] MEDS: sevelamer 800 mg Tablet PO (21:32)
[2024-03-25] MEDS: lisinopril 20 mg Tablet 40 MG PO (21:32)
[2024-03-25 21:45] LABS: Estmated Average Glucose 146; Hemoglobin A1C 6.7 % (4.0-6.0)
--- NOTE | 2024-03-25 21:51 | PM.CONSULT ---
Providers/Reason For Consult Consulting Physician/Specialty*: kommana/Nephrology Reason for Consult*: ESRD Attending Physician: Shola Carrera MD Primary Care Provider: SUZANNE Dias History of Present Illness History of Present Illness Donita Aguilar is a 38 year old female Patient is a 38-year-old female with past medical history of coronary artery disease, and hypertension presented to the emergency department complaining of chest pain. Patient also missed 2 sessions of dialysis. Vital signs are stable, lab data significant for hemoglobin of 10.7, potassium was 7.2 with a creatinine of 6.7 presentation. Review of Systems Narrative: negative Medications/Allergies Home Medications Medication Instructions Recorded Confirmed Last Taken Type blood-glucose meter,continuous #1 ea 06/12/22 03/25/24 Unknown Rx (Dexcom G6 Finisher Merchant Products) blood-glucose sensor (Dexcom G6 #3 ea 06/12/22 03/25/24 Unknown Rx Sensor device) blood-glucose transmitter (Dexcom #1 ea 06/12/22 03/25/24 Unknown Rx G6 Transmitter device) fluticasone furoate 100 1 inh inhalation DAILY PRN 09/14/23 03/25/24 09/20/23 History mcg-vilanterol 25 mcg/dose Shortness Of Breath inhalation powder (Breo Ellipta) sevelamer carbonate 800 mg tablet 800 mg PO TID #90 tabs 09/16/23 03/25/24 03/04/24 Rx atorvastatin 40 mg tablet 40 mg PO BEDTIME 11/27/23 03/25/24 03/24/24 History clonidine HCl 0.1 mg tablet See Rx Instructions .Route 11/27/23 03/25/24 Unknown History .COMPLEX PRN Blood Pressure lisinopril 40 mg tablet 40 mg PO BEDTIME 11/27/23 03/25/24 03/24/24 History aspirin 81 mg tablet,delayed 81 mg PO QAM 12/20/23 03/25/24 03/25/24 History release escitalopram oxalate 10 mg tablet 10 mg PO DAILY 12/27/23 03/25/24 03/25/24 History (Lexapro) gabapentin 100 mg capsule 100 mg PO TID 12/27/23 03/25/24 03/04/24 History insulin aspart U-100 100 unit/mL See Rx Instructions .Route 01/01/24 03/25/24 02/10/24 Rx (3 mL) subcutaneous pen (Novolog .COMPLEX #15 mL FlexPen U-100 Insulin aspart) bumetanide 1 mg tablet 1 mg PO DAILY 02/11/24 03/25/24 Unknown History Allergies Allergy/AdvReac Type Severity Reaction Status Date / Time acetaminophen AdvReac Mild ADR-Gastrointestinal Verified 03/25/24 13:54 Upset Current Medications Generic Name Dose Route Start Last Admin Trade Name Freq PRN Reason Stop Dose Admin Aspirin 81 mg 03/26/24 06:00 03/26/24 05:46 Aspirin 81 Mg Ec Tablet PO 81 mg QAM SHAY Administration Atorvastatin Calcium 40 mg 03/25/24 21:00 03/25/24 21:32 Atorvastatin 40 Mg Tablet PO 40 mg BEDTIME SHAY Administration Carvedilol 3.125 mg 03/26/24 06:37 03/26/24 06:42 Carvedilol 3.125 Mg Tablet PO 3.125 mg BID SHAY Administration Gabapentin 100 mg 03/25/24 21:00 03/25/24 21:32 Gabapentin 100 Mg Capsule PO 100 mg TID SHAY Administration Heparin Sodium (Porcine) 0 unit 03/25/24 16:44 03/26/24 07:37 Heparin 5,000 Unit/Ml Inj 1 Ml IVP 2,200 unit PRN PRN Administration Heparin Weight Based Protocol -Subsequent Bolus Protocol Albumin Human 12.5 gm in 50 mls @ 60 mls/hr 03/25/24 16:36 03/25/24 21:51 Albumin IV Infused PRN PRN Infusion Hypotension and/or symptomatic Heparin Sodium/Sodium Chloride 25,000 unit in 500 mls @ 0 mls/hr 03/25/24 16:45 03/26/24 07:35 Heparin Drip IV 17.45 unit/kg/hr CONT SHAY 19 mls/hr Titration Protocol Per Protocol Insulin Human Lispro 0 unit 03/25/24 18:00 03/26/24 07:37 Insulin Lispro 100 Unit/1 Ml SUBCUT 6 unit TIDWM SHAY Administration Protocol Lisinopril 40 mg 03/25/24 21:00 03/25/24 21:32 Lisinopril 20 Mg Tablet PO 40 mg BEDTIME SHAY Administration Morphine Sulfate 2 mg 03/25/24 18:00 03/26/24 07:36 Morphine 4 Mg/Ml Sdv 1 Ml IVP 2 mg Q4H PRN Administration SEVERE PAIN Pantoprazole Sodium 40 mg 03/25/24 17:00 03/25/24 17:47 Pantoprazole 40 Mg Sdv IVP 40 mg Q24H SHAY Administration Sevelamer Carbonate 800 mg 03/25/24 21:00 03/25/24 21:32 Sevelamer 800 Mg Tablet PO 800 mg TID SHAY Administration Ticagrelor 90 mg 03/25/24 18:00 03/25/24 17:47 Ticagrelor 90 Mg Tablet PO 90 mg BID SHAY Administration PFSH Acute PFSH: Medical History (Updated 03/26/24 @ 17:13 by Kelin Paulson MD) ESRD (end stage renal disease) Dialysis complication Hypoglycemia Hemodialysis catheter dysfunction Hyperkalemia Colitis Accelerated hypertension End stage renal disease on dialysis COPD (chronic obstructive pulmonary disease) Diabetes mellitus Transaminitis Intractable nausea and vomiting Hyperlipidemia HTN (hypertension) CHF (congestive heart failure), NYHA class III Pulmonary hypertension CAD (coronary artery disease) Neurogenic bladder COVID-19 Tobacco dependence Drug abuse Anemia Community acquired pneumonia Esophagitis Long-term insulin use History of pancreatitis Celiac disease Recurrent UTI Non-alcoholic fatty liver disease Arnold-Chiari malformation Diabetic gastroparesis -continue Reglan Diabetic neuropathy associated with type 1 diabetes mellitus Headache, common migraine, intractable, with status migrainosus Pleural effusion 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 History of lung surgery -s/p LLL lobectomy secondary to cavitary pneumonia (2017) History of endoscopy History of cholecystectomy Family History Grandfather Diabetes Mother CAD (coronary artery disease) Diabetes Brother Acute lymphoblastic leukemia (ALL) in child Other Heart disease Hypertension Social History Smoking and tobacco/nicotine status: former use of tobacco/nicotine Quit status (tobacco/nicotine): has quit using Former quit date comment: She previously smoked <1/2 PPD, quit July 2023. Second hand smoke exposure: Yes Alcohol intake: never Substance/Drug Use: current Household members: children Housing: House Marital status: Single Current occupational status: unemployed Vitals/I&O/Wt Last Vital Signs Temp 99.3 F 03/26/24 05:57 Pulse 74 03/26/24 06:00 Resp 16 03/26/24 07:36 BP 152/94 03/26/24 04:00 Pulse Ox 95 03/26/24 07:36 O2 Del Method Room Air 03/25/24 18:18 03/25/24 03/26/24 03/26/24 22:59 06:59 14:59 Intake Total 930 / 930 121.267 / 1051.267 113.05 / 113.05 Balance 930 / 930 121.267 / 1051.267 113.05 / 113.05 Weight last 48 hrs Weight 56.88 kg Weight 62 kg Weight 54.431 kg Physical Exam Narrative: awake , alert no distress s1s2 rrr PER REPORT LUNG CLER PER REPORT NO EDEMA Data 03/26/24 14:00 03/26/24 03:17 A&P Assessment and plan (1) ESRD (end stage renal disease): Plan 1. End-stage renal disease: Emergent HD tonight due to severe hyperkalemia, ultrafiltration as tolerated 2. History of coronary artery disease with NSTEMI 3. Hyperkalemia, low K diet and HD as above 4. History of hypertension 5. Anemia: Hemoglobin 6. HTN : on coreg , and lisinopril , BP elevated , titrate meds Patient evaluated using audiovisual cart. Time spent 40 minutes. Consult Attestations Medical Necessity Statement: per [place] [facility] team Coding Level of Care Code Acute Code for Chg Fwd Diagnoses ESRD (end stage renal disease) N18.6
--- NOTE | 2024-03-25 22:57 | PC.NURSE ---
IV access Patient has one IV in place. Vitals stable, not on multiple drips. This nurse and another nurse tried twice to initiate access with no luck due to poor vascularity.
[2024-03-26] VITALS (35 sets, daily range): BP systolic 122–185; BP diastolic 70–106; PULSE 72–84; RESP 0–20; TEMP 36.9–37.4; O2SAT 93–98
[2024-03-26 00:47] LABS: Partial Thromboplastin Time 69.5 SECONDS (23.9-36.7)
[2024-03-26] MEDS: morphine 4 mg/mL SDV 1 mL 2 MG IVP ×5 (03:03→21:18)
[2024-03-26 03:28] LABS: Basophils # 0.1 10^3/uL (0.0-0.1); Basophils % 0.8 %; Eosinophils # 0.3 10^3/uL (0.0-0.8); Eosinophils % 4.9 %; Hematocrit 31.3 % (36-47); Lymphocytes # 1.4 10^3/uL (0.8-4.8); Lymphocytes % 22.1 %; Mean Corpuscular Hemoglobin 29.2 pg (27-33); Mean Corpuscular Volume 94.3 fl (85-98); Mean Platelet Volume 10.9 fL (7.4-10.4); Monocytes # 0.5 10^3/uL (0.2-0.9); Monocytes % 7.4 %; Neutrophils # 3.94 10^3/uL (1.8-7.7); Neutrophils % 64.6 %; Nucleated Red Blood Cells % 0 %; Platelet Count 163 10^3/cmm (157-399); Red Blood Count 3.32 10^6/uL (3.85-5.65); Red Cell Distribution Width 14.4 % (12.1-15.1)
[2024-03-26 03:52] LABS: Alanine Aminotransferase 32 U/L (0-33); Albumin Level 3.7 g/dL (3.5-5.2); Alkaline Phosphatase 110 U/L (35-105); Anion Gap 13.5 (5-19); Aspartate Amino Transferase 58 U/L (0-32); Blood Urea Nitrogen 22 mg/dL (6-20); Calcium 8.3 mg/dL (8.5-10.5); Carbon Dioxide 26 mmol/L (22-29); Chloride 103 mmol/L (98-107); Creatinine Clr Calc Pharmacy 17.1222; Globulin 2.9 g/dL (1.3-4.6); Glomerular Filtration Rate 13.8 mL/min (90-130); Glucose 233 mg/dL (65-115); Magnesium 1.9 mg/dL (1.7-2.3); Osmolality Calculated 297 mOsm/kg (285-295); Phosphorus 4.9 mg/dL (2.5-4.5); Potassium 4.5 mmol/L (3.5-5.1); Sodium 138 mmol/L (136-145); Total Bilirubin 0.2 mg/dL (0.15-1.2); Total Protein 6.6 g/dL (6.6-8.7)
[2024-03-26 03:57] LABS: Troponin T (5th) Once 286 ng/L (0-10)
[2024-03-26 04:49] LABS: NT Pro B Type Natriuretic Pept 47033 pg/mL (0-125)
[2024-03-26] MEDS: aspirin 81 mg EC Tablet PO (05:46)
[2024-03-26] MEDS: carvedilol 3.125 mg Tablet PO ×2 (06:42→17:16)
[2024-03-26 07:11] LABS: Partial Thromboplastin Time 41.2 SECONDS (23.9-36.7)
[2024-03-26 07:23] LABS: Glucose Point of Care 256 mg/dL (70-110)
[2024-03-26] MEDS: insulin lispro 100 unit/1 mL SUBCUT ×2 (07:37→17:43)
[2024-03-26] MEDS: heparin 5,000 unit/mL INJ 1 mL IVP ×2 (07:37→15:10)
[2024-03-26] MEDS: sevelamer 800 mg Tablet PO ×3 (08:21→21:13)
[2024-03-26] MEDS: ticagrelor 90 mg Tablet PO ×2 (08:21→17:16)
[2024-03-26] MEDS: gabapentin 100 mg Capsule PO ×3 (08:21→21:13)
[2024-03-26] MEDS: escitalopram 10 mg Tablet PO (08:21)
--- NOTE | 2024-03-26 08:46 | P.PN_ITS ---
Subjective 2 Subjective: no new c/o Medications: Reviewed: Yes Vitals/I&O/Wt Last Vital Signs Temp 98.8 F 03/27/24 05:30 Pulse 70 03/27/24 08:00 Resp 9 L 03/27/24 08:00 BP 158/114 03/27/24 08:00 Pulse Ox 95 03/27/24 08:00 O2 Del Method Room Air 03/27/24 07:30 03/26/24 03/27/24 03/27/24 22:59 06:59 14:59 Intake Total 670.683 / 4117.542 1782.333 / 2293.066 Output Total Balance 670.683 / 2901.280 5045.333 / 2292.066 Weight last 48 hrs Weight 58.5 kg Weight 56.88 kg Weight 62 kg Weight 54.431 kg Physical Exam 2 Narrative: awake , alert no distress s1s2 rrr PER REPORT LUNG CLER PER REPORT NO EDEMA Data 03/27/24 03:15 03/27/24 03:15 A&P Assessment and plan (1) ESRD (end stage renal disease): Plan 1. End-stage renal disease: hd done yesterday 2. History of coronary artery disease with NSTEMI- cardiology following 3. Hyperkalemia, low K diet and HD as above 4. History of hypertension 5. Anemia: Hemoglobin 6. HTN : on coreg , and lisinopril , BP elevated , titrate meds Patient evaluated using audiovisual cart. Time spent 40 minutes. Attestations 2 Medical Necessity Statement*: per [facility] Coding Level of Care Code Acute Code for Chg Fwd Diagnoses ESRD (end stage renal disease) N18.6
--- NOTE | 2024-03-26 10:28 | P.PN_ITS ---
Subjective 2 Subjective: Patient was seen this morning, she is alert oriented x 3, following all commands, she continued to complain of chest pain throughout the night, no nausea, no vomiting, no diaphoresis, no shortness of breath, she tells me that she stopped taking her Brilinta over a month ago as she had insurance issues covering the medication and it was too expensive, Vitals/I&O/Wt Last Vital Signs Temp 99.3 F 03/26/24 05:57 Pulse 76 03/26/24 08:00 Resp 11 L 03/26/24 08:00 BP 171/97 03/26/24 08:00 Pulse Ox 93 03/26/24 08:00 O2 Del Method Room Air 03/26/24 08:00 03/25/24 03/26/24 03/26/24 22:59 06:59 14:59 Intake Total 930 / 930 121.267 / 1051.267 113.05 / 113.05 Balance 930 / 930 121.267 / 1051.267 113.05 / 113.05 Weight last 48 hrs Weight 56.88 kg Weight 62 kg Weight 54.431 kg Physical Exam 2 Const: COMMON NORMALS: no acute distress and patient oriented x3 Resp: COMMON NORMALS: normal respiratory effort, No retractions, No use of accessory muscles and clear to auscultation bilaterally AUSCULTATION: clear to auscultation bilaterally Cardio: COMMON NORMALS: regular rate, regular rhythm, S1 normal heart sound present and S2 normal heart sound present RATE: regular rate RHYTHM: r egular rhythm HEART SOUNDS: S1 normal heart sound present and S2 normal heart sound present GI: COMMON NORMALS: Normal to inspection, nondistended, normoactive bowel sounds present and non-tender Extremity: COMMON NORMALS: no pedal edema Neuro: COMMON NORMALS: patient oriented x3 Psych: COMMON NORMALS: mental status grossly normal Data 03/26/24 09:08 03/26/24 03:17 A&P Assessment and plan (1) CHF (congestive heart failure), NYHA class III: Qualifiers: Congestive heart failure type: systolic Congestive heart failure chronicity: acute on chronic Qualified Code(s): I50.23 - Acute on chronic systolic (congestive) heart failure (2) Atherosclerotic heart disease of [place] coronary artery with other forms of angina pectoris: (3) NSTEMI (non-ST elevated myocardial infarction): (4) CAD (coronary artery disease): (5) Chest pain: (6) Hyperlipidemia: Qualifiers: Hyperlipidemia type: mixed hyperlipidemia Qualified Code(s): E78.2 - Mixed hyperlipidemia (7) Hyperkalemia: Plan Chest pain with NSTEMI ? Baseline troponin 297, EKG no acute ST-T wave changes ? Recent history of cardiac cath 11/2023 1. Severe mid LAD stenosis s/p successful revascularization with 1 stent.. 2. Mid Left Anterior Descending to Mid Left Anterior Descending was treated with a Balloon, Drug Eluting Stent, and Balloon -Echocardiogram December 2023 -.CONCLUSIONS Moderate concentric left ventricular hypertrophy. Slightly dyskinetic basal inferior wall segment.Grade III/IV diastolic dysfunction (restrictive filling pattern), severely elevated filling pressures. Normal LV size with an ejection fraction of 55%. Mildly increased left atrial size. Mild mitral valve regurgitation. There is no pericardial effusion. There are no intracardiac masses. Compared to the study from 11/27/2023, there may not be a significant change ? Plan ? Serial EKGs, serial troponins, telemetry monitoring ? Hyperkalemia has resolved ? Heparin drip ? Aspirin, statin, Brilinta -On discharge will likely need to switch from Brilinta to Plavix as patient is having affordability issues ? Coreg ? Cardiac echo ? BNP is over 4700 no clinical evidence of fluid overload, ? Monitor closely -Due to persistent chest pain, will consult cardiology Hyperkalemia, resolved ? Status post insulin, D10 -Will receive dialysis End-stage renal disease, on dialysis, received dialysis yesterday Plan for today monitor for chest pain, continue heparin drip, cardiology consulted, Attestations 2 Medical Necessity Statement*: Patient requires hospitalization for chest pain, NSTEMI, Diagnoses Acute on chronic systolic congestive heart failure, NYHA class 3 I50.23 Congestive heart failure type: systolic Congestive heart failure chronicity: acute on chronic Atherosclerotic heart disease of [place] coronary artery with other forms of angina pectoris I25.118 NSTEMI (non-ST elevated myocardial infarction) I21.4 CAD (coronary artery disease) I25.10 Chest pain R07.9 Mixed hyperlipidemia E78.2 Hyperlipidemia type: mixed hyperlipidemia Hyperkalemia E87.5
[2024-03-26 11:18] LABS: Glucose Point of Care 86 mg/dL (70-110)
[2024-03-26 14:34] LABS: Hematocrit 31.4 % (36-47)
[2024-03-26 14:46] LABS: Partial Thromboplastin Time 49.8 SECONDS (23.9-36.7)
--- NOTE | 2024-03-26 17:08 | P.CONIM_ITS ---
Providers/Reason For Consult 2 Consulting Physician/Specialty*: JOSEY Eugene MD/cardiology Reason for Consult*: Patient with history of coronary disease, status post multiple PCI, is admitted to the hospital with a prolonged episode of chest pain. Requesting Physician: Dr. Carrera Attending Physician: Shola Carrera MD Primary Care Provider: SUZANNE Dias History of Present Illness History of Present Illness Donita Aguilar is a 38 year old female with a history of atherosclerotic heart diseas, status post multiple PCI's, is admitted to the hospital with complaints of prolonged episode of chest pain.\ Patient apparently has been in her baseline state of health up until 11:00 yesterday when she started having the pain. The pain was a mid substernal, radiating across the chest, 8-9/10 in intensity. She was supposed to have the dialysis yesterday. She went for the dialysis with the pain. Because of the chest pain, the dialysis was postponed. She was advised to be evaluated in the emergency room for further management. Patient is initial troponin was found to be elevated in the 200 range. She had a no significant delta at 2 and 6 hours. However she continues to have the pain, waxing and waning. Apparently the pain is not responding to the nitro. She is requiring morphine for the relief of pain. Patient had initial coronary intervention at the [facility] in [place] few years ago. In August of this year she was admitted to this hospital with unstable anginal symptoms. A cardiac catheterization at that time revealed a patent stented segments of the LAD and the diagonal artery. She had a chronic total occlusion of the right coronary artery. There was a subtotal occlusion of the mid circumflex artery. PCI was attempted. Following the ballooning, patient developed a dissection in the artery. However there was no flow compromise. It also appeared that the patient had some collateral filling of the distal artery. So at this point the procedure was aborted. Patient was watched in the hospital for few days. She did not have any chest pain. In November of this year, she again presented with a unstable angina and features of a non-ST elevation myocardial infarction. Cardiac catheterization revealed a patent stented segments in the RCA, circumflex and the mid circumflex artery. She had a high-grade lesion in the mid LAD which was intervened. Patient had a Myocardial perfusion imaging in December of this year which revealed areas of fixed and reversible defects in the distribution of the left circumflex artery. Echocardiogram yesterday reported as normal LV size and ejection fraction The patient was placed on Brilinta following the last coronary intervention. Apparently the insurance did not pay for this medication. So the patient has been taking Plavix instead. She appears to be compliant with medications otherwise. Review of Systems 2 Narrative: CONSTITUTIONAL: No fever or chills. EYES: No blurring of vision or other visual disturbances lately. ENT: No hoarseness of voice, auditory disturbances or sore throat. CARDIOVASCULAR: As mentioned above. RESPIRATORY: No significant cough. GASTROINTESTINAL: No hematemesis or melena. GENITOURINARY: end-stage renal disease on hemodialysis INTEGUMENTARY: No skin rashes or history of skin cancer. NEURO: No transient ischemic attacks or amaurosis. PSYCHIATRIC: No history of psychosis or major depression. HEMATOLOGIC: No bleeding disorders or significant anemia. ENDOCRINE: Type 1 diabetes MUSCULOSKELETAL: No recent joint pain or swelling. ALLERGY/IMMUNOLOGY: As mentioned above. Medications/Allergies Home Medications Medication Instructions Recorded Confirmed Last Taken Type blood-glucose meter,continuous #1 ea 06/12/22 03/25/24 Unknown Rx (Dexcom G6 [facility] [employer]) blood-glucose sensor (Dexcom G6 #3 ea 06/12/22 03/25/24 Unknown Rx Sensor device) blood-glucose transmitter (Dexcom #1 ea 06/12/22 03/25/24 Unknown Rx G6 Transmitter device) fluticasone furoate 100 1 inh inhalation DAILY PRN 09/14/23 03/25/24 09/20/23 History mcg-vilanterol 25 mcg/dose Shortness Of Breath inhalation powder (Breo Ellipta) sevelamer carbonate 800 mg tablet 800 mg PO TID #90 tabs 09/16/23 03/25/24 03/04/24 Rx atorvastatin 40 mg tablet 40 mg PO BEDTIME 11/27/23 03/25/24 03/24/24 History clonidine HCl 0.1 mg tablet See Rx Instructions .Route 11/27/23 03/25/24 Unknown History .COMPLEX PRN Blood Pressure lisinopril 40 mg tablet 40 mg PO BEDTIME 11/27/23 03/25/24 03/24/24 History aspirin 81 mg tablet,delayed 81 mg PO QAM 12/20/23 03/25/24 03/25/24 History release escitalopram oxalate 10 mg tablet 10 mg PO DAILY 12/27/23 03/25/24 03/25/24 History (Lexapro) gabapentin 100 mg capsule 100 mg PO TID 12/27/23 03/25/24 03/04/24 History insulin aspart U-100 100 unit/mL See Rx Instructions .Route 01/01/24 03/25/24 02/10/24 Rx (3 mL) subcutaneous pen (Novolog .COMPLEX #15 mL FlexPen U-100 Insulin aspart) bumetanide 1 mg tablet 1 mg PO DAILY 02/11/24 03/25/24 Unknown History Allergies Allergy/AdvReac Type Severity Reaction Status Date / Time acetaminophen AdvReac Mild ADR-Gastrointestinal Verified 03/25/24 13:54 Upset Current Medications Generic Name Dose Route Start Last Admin Trade Name Freq PRN Reason Stop Dose Admin Aspirin 81 mg 03/26/24 06:00 03/26/24 05:46 Aspirin 81 Mg Ec Tablet PO 81 mg QAM SHAY Administration Atorvastatin Calcium 40 mg 03/25/24 21:00 03/25/24 21:32 Atorvastatin 40 Mg Tablet PO 40 mg BEDTIME SHAY Administration Carvedilol 3.125 mg 03/26/24 06:37 03/26/24 06:42 Carvedilol 3.125 Mg Tablet PO 3.125 mg BID SHAY Administration Escitalopram Oxalate 10 mg 03/26/24 09:00 03/26/24 08:21 Escitalopram 10 Mg Tablet PO 10 mg DAILY SHAY Administration Gabapentin 100 mg 03/25/24 21:00 03/26/24 15:10 Gabapentin 100 Mg Capsule PO 100 mg TID SHAY Administration Heparin Sodium (Porcine) 0 unit 03/25/24 16:44 03/26/24 15:10 Heparin 5,000 Unit/Ml Inj 1 Ml IVP 1,100 unit PRN PRN Administration Heparin Weight Based Protocol -Subsequent Bolus Protocol Albumin Human 12.5 gm in 50 mls @ 60 mls/hr 03/25/24 16:36 03/25/24 21:51 Albumin IV Infused PRN PRN Infusion Hypotension and/or symptomatic Heparin Sodium/Sodium Chloride 25,000 unit in 500 mls @ 0 mls/hr 03/25/24 16:45 03/26/24 15:07 Heparin Drip IV 18.37 unit/kg/hr CONT SHAY 20 mls/hr Titration Protocol Per Protocol Insulin Human Lispro 0 unit 03/25/24 18:00 03/26/24 12:30 Insulin Lispro 100 Unit/1 Ml SUBCUT Not Given TIDWM SHAY Protocol Lisinopril 40 mg 03/25/24 21:00 03/25/24 21:32 Lisinopril 20 Mg Tablet PO 40 mg BEDTIME SHAY Administration Morphine Sulfate 2 mg 03/25/24 18:00 03/26/24 12:24 Morphine 4 Mg/Ml Sdv 1 Ml IVP 2 mg Q4H PRN Administration SEVERE PAIN Pantoprazole Sodium 40 mg 03/25/24 17:00 03/25/24 17:47 Pantoprazole 40 Mg Sdv IVP 40 mg Q24H SHAY Administration Sevelamer Carbonate 800 mg 03/25/24 21:00 03/26/24 15:10 Sevelamer 800 Mg Tablet PO 800 mg TID SHAY Administration Ticagrelor 90 mg 03/25/24 18:00 03/26/24 08:21 Ticagrelor 90 Mg Tablet PO 90 mg BID SHAY Administration PFSH Acute 2 PFSH: Medical History (Updated 03/26/24 @ 18:17 by Gilberto Eugene MD) Accelerated hypertension Uncontrolled type 1 diabetes mellitus ESRD (end stage renal disease) Dialysis complication Hypoglycemia Hemodialysis catheter dysfunction Hyperkalemia Colitis End stage renal disease on dialysis COPD (chronic obstructive pulmonary disease) Diabetes mellitus Transaminitis Intractable nausea and vomiting Hyperlipidemia HTN (hypertension) CHF (congestive heart failure), NYHA class III Pulmonary hypertension CAD (coronary artery disease) Neurogenic bladder COVID-19 Tobacco dependence Drug abuse Anemia Community acquired pneumonia Esophagitis Long-term insulin use History of pancreatitis Celiac disease Recurrent UTI Non-alcoholic fatty liver disease Arnold-Chiari malformation Diabetic gastroparesis -continue Reglan Diabetic neuropathy associated with type 1 diabetes mellitus Headache, common migraine, intractable, with status migrainosus Pleural effusion 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 History of lung surgery -s/p LLL lobectomy secondary to cavitary pneumonia (2017) History of endoscopy History of cholecystectomy Family History Grandfather Diabetes Mother CAD (coronary artery disease) Diabetes Brother Acute lymphoblastic leukemia (ALL) in child Other Heart disease Hypertension Social History Smoking and tobacco/nicotine status: former use of tobacco/nicotine Quit status (tobacco/nicotine): has quit using Former quit date comment: She previously smoked <1/2 PPD, quit July 2023. Second hand smoke exposure: Yes Alcohol intake: never Substance/Drug Use: current Household members: children Housing: House Marital status: Single Current occupational status: unemployed Vitals/I&O/Wt Last Vital Signs Temp 99.3 F 03/26/24 05:57 Pulse 75 03/26/24 16:00 Resp 12 03/26/24 16:00 BP 178/97 03/26/24 16:00 Pulse Ox 96 03/26/24 16:00 O2 Del Method Room Air 03/26/24 14:21 03/26/24 03/26/24 03/26/24 06:59 14:59 22:59 Intake Total 121.267 / 1051.267 473.05 / 473.05 143.133 / 616.183 Balance 121.267 / 1051.267 473.05 / 473.05 143.133 / 616.183 Weight last 48 hrs Weight 125 lb 6.4 oz Weight 136 lb 10.986 oz Weight 120 lb Physical Exam 2 Narrative: GENERAL: The patient is alert and oriented times three. Not in any acute distress. HEENT: No significant pallor, icterus or lymphadenopathy.Oral cavity: There are no mucous membrane lesions. NECK: Trachea appears to be central. No masses noted. No JVD or thyromegaly appreciated. RESPIRATORY: Chest is symmetrical. No intercostals muscle retraction or any accessory muscle activation. There is no chest wall tenderness. Breath sounds are heard bilaterally. No rales or rhonchi heard. No evidence of any consolidation. BREASTS: Deferred. HEART: The heart sounds are normal. No S3 or S4. Short systolic murmur in the lower sternal border. No diastolic murmurs. No pericardial rub ABDOMEN: No vessel pulsations or distention. No tenderness. No organomegaly appreciated. Bowel sounds are normally heard. : Deferred. RECTAL: Deferred. LYMPHATIC: No lymphadenopathy noted in the neck. EXTREMITIES: No edema or cyanosis. No clubbing. MUSCULOSKELETAL: No acute joint deformities or swelling SKIN: There are no significant rashes or ecchymosis NEUROPSYCHIATRIC: The patient is alert and oriented x3. Appears to be in a good mood. No tremors or rigidity noted. Data 03/26/24 14:00 03/26/24 03:17 Other Labs: Laboratory Last Values WBC 6.10 10^3/uL (3.29-11.43) 03/26/24 03:17 RBC 3.32 10^6/uL (3.85-5.65) L 03/26/24 03:17 Hgb 10.00 g/dL (11.27-16.99) L 03/26/24 14:00 Hct 31.4 % (36-47) L 03/26/24 14:00 MCV 94.3 fl (85-98) 03/26/24 03:17 MCH 29.2 pg (27-33) 03/26/24 03:17 MCHC 31.0 g/dL (30-55) 03/26/24 03:17 RDW 14.4 % (12.1-15.1) 03/26/24 03:17 Plt Count 163 10^3/cmm (157-399) 03/26/24 03:17 MPV 10.9 fL (7.4-10.4) H 03/26/24 03:17 Neut % (Auto) 64.6 % 03/26/24 03:17 Lymph % (Auto) 22.1 % 03/26/24 03:17 [place] % (Auto) 7.4 % 03/26/24 03:17 Eos % (Auto) 4.9 % 03/26/24 03:17 Baso % (Auto) 0.8 % 03/26/24 03:17 Neut # (Auto) 3.94 10^3/uL (1.8-7.7) 03/26/24 03:17 Lymph # (Auto) 1.4 10^3/uL (0.8-4.8) 03/26/24 03:17 [place] # (Auto) 0.5 10^3/uL (0.2-0.9) 03/26/24 03:17 Eos # (Auto) 0.3 10^3/uL (0.0-0.8) 03/26/24 03:17 Baso # (Auto) 0.1 10^3/uL (0.0-0.1) 03/26/24 03:17 Nucleated RBC % (auto) 0 % 03/26/24 03:17 Nucleated RBCs # 0.0 /100WBC 03/26/24 03:17 APTT 49.8 SECONDS (23.9-36.7) H 03/26/24 14:00 Sodium 138 mmol/L (136-145) 03/26/24 03:17 Potassium 4.5 mmol/L (3.5-5.1) 03/26/24 03:17 Chloride 103 mmol/L (98-107) 03/26/24 03:17 Carbon Dioxide 26 mmol/L (22-29) 03/26/24 03:17 Anion Gap 13.5 (5-19) 03/26/24 03:17 BUN 22 mg/dL (6-20) H 03/26/24 03:17 Creatinine 3.7 mg/dL (0.5-0.9) H 03/26/24 03:17 GFR Calculation 13.8 mL/min (90-130) L 03/26/24 03:17 Glucose 233 mg/dL (65-115) H 03/26/24 03:17 POC Glucose 265 mg/dL (70-110) H 03/26/24 17:39 Estimat Average Glucose 146 03/25/24 14:17 Hemoglobin A1c 6.7 % (4.0-6.0) H 03/25/24 14:17 Calculated Osmolality 297 mOsm/kg (285-295) H 03/26/24 03:17 Calcium 8.3 mg/dL (8.5-10.5) L 03/26/24 03:17 Phosphorus 4.9 mg/dL (2.5-4.5) H 03/26/24 03:17 Magnesium 1.9 mg/dL (1.7-2.3) 03/26/24 03:17 Total Bilirubin 0.2 mg/dL (0.15-1.2) 03/26/24 03:17 AST 58 U/L (0-32) H 03/26/24 03:17 ALT 32 U/L (0-33) 03/26/24 03:17 Alkaline Phosphatase 110 U/L (35-105) H 03/26/24 03:17 Troponin T 5th Gen ng/L 286 ng/L (0-10) H* 03/26/24 03:17 Troponin T Baseline 297 ng/L (0-10) H* 03/25/24 14:17 Troponin T 120 Minute 282.9 ng/L (0-10) H 03/25/24 16:50 Delta Troponin T -14.1 ABS# (0-10) L 03/25/24 16:50 Troponin T Hi Sens 6Hr 247.7 ng/L (0-10) H 03/25/24 20:14 Troponin T Hi Sens 6Hr Delta -49.3 ng/L (0-12) L 03/25/24 20:14 NT-Pro-B Natriuret Pep 16260 pg/mL (0-125) H 03/26/24 03:17 Total Protein 6.6 g/dL (6.6-8.7) 03/26/24 03:17 Albumin 3.7 g/dL (3.5-5.2) 03/26/24 03:17 Globulin 2.9 g/dL (1.3-4.6) 03/26/24 03:17 TSH 3.89 uIU/mL (0.27-4.20) 03/25/24 14:17 Other data: The EKG showed sinus rhythm with a diffuse nonspecific ST-T changes. Essentially unchanged from the previous EKG. 12/31/2023 Myocardial perfusion imaging IMPRESSIONS 1. Abnormal myocardial perfusion imaging with small to medium sized area of prior infarct with minimal nina-infarct ischemia in the left cirucmflex artery territory 2. LV systolic function is mildly reduced with EF of 47% Cardiac catheterization on 11/27/2023 agnostic Findings * Left Main has no significant disease. * Circumflex has patent prior stent. * Right Coronary Artery has patent prior stent. * Mid Left Anterior Descending to Mid Left Anterior Descending: significant 80% stenosis, KORIN: 3 flow. * Coronary angiography shows right dominance. A&P Assessment and plan (1) Atherosclerotic heart disease of [place] coronary artery with unstable angina pectoris: The patient's symptoms are suggestive of an unstable angina. She continues to have the chest pain. There is no significant delta in the troponins. She only had a Myocardial perfusion imaging since the last intervention revealing areas of fixed and reversible defect in the circumflex artery territory. Apparently her stent in the circumflex artery was patent during the last angiogram. Is possible that she may be developing occlusion of the left circumflex artery stent. To further evaluate the coronary status, it might be appropriate to do a repeat cardiac catheterization and then decide on further management. This was discussed with the patient. Patient understand this well. Qualifiers: [place] vs. transplanted heart: [place] heart Qualified Code(s): I25.110 - Atherosclerotic heart disease of [place] coronary artery with unstable angina pectoris (2) CHF (congestive heart failure), NYHA class III: Currently appears to be compensated. Her LV ejection fraction was normal by echocardiogram. May continue on the current management. Qualifiers: Congestive heart failure type: systolic Congestive heart failure chronicity: acute on chronic Qualified Code(s): I50.23 - Acute on chronic systolic (congestive) heart failure (3) Hyperlipidemia: Will continue on the current medications. Qualifiers: Hyperlipidemia type: mixed hyperlipidemia Qualified Code(s): E78.2 - Mixed hyperlipidemia (4) ESRD (end stage renal disease): Patient is on hemodialysis. Possible hemodialysis after the angiogram tomorrow. (5) Accelerated hypertension: To better control the blood pressure, I may start her on amlodipine 5 mg p.o. daily in addition to the current medications. Her blood pressure needs to be closely monitored. (6) Uncontrolled type 1 diabetes mellitus: Management as per the primary attending. Qualifiers: Glycemic state: with hyperglycemia Qualified Code(s): E10.65 - Type 1 diabetes mellitus with hyperglycemia Plan We may keep the patient n.p.o. after midnight. Patient will be reevaluated by Dr. Burch in the morning. Possible cardiac catheterization afterwards. She may be kept on the IV heparin and the other current medications. Thank you for the opportunity to evaluate this patient and make these recommendations Coding Level of Care Code 15273 Diagnoses Atherosclerosis of [place] coronary artery of [place] heart with unstable angina pectoris I25.110 [place] vs. transplanted heart: [place] heart Acute on chronic systolic congestive heart failure, NYHA class 3 I50.23 Congestive heart failure type: systolic Congestive heart failure chronicity: acute on chronic Mixed hyperlipidemia E78.2 Hyperlipidemia type: mixed hyperlipidemia ESRD (end stage renal disease) N18.6 Accelerated hypertension I10 Uncontrolled type 1 diabetes mellitus with hyperglycemia E10.65 Glycemic state: with hyperglycemia
[2024-03-26] MEDS: pantoprazole 40 mg SDV IVP (17:16)
[2024-03-26 17:44] LABS: Glucose Point of Care 265 mg/dL (70-110)
[2024-03-26] MEDS: amlodipine 5 mg Tablet PO (17:56)
--- NOTE | 2024-03-26 18:12 | PC.NURSE ---
Dr. Eugene told this nurse to place patient NPO after midnight for cath procedure tomorrow.
[2024-03-26] MEDS: heparin drip 25,000 UNIT/500 ML PREMIX 20 UNIT IV (19:36)
[2024-03-26] MEDS: lisinopril 20 mg Tablet 40 MG PO (21:13)
[2024-03-26] MEDS: atorvastatin 40 mg Tablet PO (21:13)
[2024-03-26 21:22] LABS: Hematocrit 31.6 % (36-47)
[2024-03-26 21:40] LABS: Partial Thromboplastin Time 58.7 SECONDS (23.9-36.7)
[2024-03-26 22:02] LABS: Glucose Point of Care 155 mg/dL (70-110)
[2024-03-27] VITALS (65 sets, daily range): BP systolic 91–187; BP diastolic 56–114; PULSE 66–76; RESP 1–18; TEMP 36.6–37.1; O2SAT 89–99; BMI 25.2
--- NOTE | 2024-03-27 00:30 | PC.NURSE ---
Hypertension Patient's blood pressure ranging from 158-187 systolic, 72-106 diastolic, with a current pressure of 187/104. Dr. Guevara contacted and order received for one time dose 0.1 mg clonidine PO.
[2024-03-27] MEDS: cloNIDine 0.1 mg Tablet PO (00:50)
[2024-03-27] MEDS: morphine 4 mg/mL SDV 1 mL 2 MG IVP ×5 (01:08→22:36)
[2024-03-27 03:39] LABS: Basophils # 0.1 10^3/uL (0.0-0.1); Basophils % 0.8 %; Eosinophils # 0.4 10^3/uL (0.0-0.8); Hematocrit 31.6 % (36-47); Lymphocytes # 1.7 10^3/uL (0.8-4.8); Lymphocytes % 23.4 %; Mean Corpuscular HGB Conc 30.7 g/dL (30-55); Mean Corpuscular Hemoglobin 29.2 pg (27-33); Mean Corpuscular Volume 95.2 fl (85-98); Mean Platelet Volume 10.9 fL (7.4-10.4); Monocytes # 0.7 10^3/uL (0.2-0.9); Monocytes % 9.5 %; Neutrophils # 4.43 10^3/uL (1.8-7.7); Nucleated Red Blood Cells % 0 %; Platelet Count 175 10^3/cmm (157-399); Red Blood Count 3.32 10^6/uL (3.85-5.65); Red Cell Distribution Width 14.4 % (12.1-15.1); White Blood Count 7.26 10^3/uL (3.29-11.43)
[2024-03-27 03:59] LABS: Partial Thromboplastin Time 77.6 SECONDS (23.9-36.7)
[2024-03-27 04:02] LABS: Alanine Aminotransferase 38 U/L (0-33); Albumin Level 3.5 g/dL (3.5-5.2); Alkaline Phosphatase 121 U/L (35-105); Anion Gap 17.2 (5-19); Aspartate Amino Transferase 65 U/L (0-32); Blood Urea Nitrogen 34 mg/dL (6-20); Calcium 8.3 mg/dL (8.5-10.5); Carbon Dioxide 24 mmol/L (22-29); Chloride 102 mmol/L (98-107); Creatinine Clr Calc Pharmacy 11.7042; Globulin 2.9 g/dL (1.3-4.6); Glomerular Filtration Rate 9.3 mL/min (90-130); Glucose 184 mg/dL (65-115); Magnesium 1.9 mg/dL (1.7-2.3); Osmolality Calculated 298 mOsm/kg (285-295); Phosphorus 6.4 mg/dL (2.5-4.5); Potassium 5.2 mmol/L (3.5-5.1); Sodium 138 mmol/L (136-145); Total Bilirubin 0.3 mg/dL (0.15-1.2); Total Protein 6.4 g/dL (6.6-8.7)
[2024-03-27 04:44] LABS: NT Pro B Type Natriuretic Pept 40715 pg/mL (0-125)
[2024-03-27] MEDS: aspirin 81 mg EC Tablet PO (05:42)
[2024-03-27 07:52] LABS: Glucose Point of Care 178 mg/dL (70-110)
[2024-03-27] MEDS: gabapentin 100 mg Capsule PO ×3 (08:09→21:54)
[2024-03-27] MEDS: escitalopram 10 mg Tablet PO (08:09)
[2024-03-27] MEDS: carvedilol 3.125 mg Tablet PO ×2 (08:09→18:31)
[2024-03-27] MEDS: insulin lispro 100 unit/1 mL SUBCUT (08:09)
[2024-03-27] MEDS: ticagrelor 90 mg Tablet PO ×2 (08:09→18:32)
[2024-03-27] MEDS: sevelamer 800 mg Tablet PO ×2 (08:09→22:04)
--- NOTE | 2024-03-27 08:59 | P.PN_ITS ---
Subjective 2 Subjective: no new c/o Medications: Reviewed: Yes Vitals/I&O/Wt Last Vital Signs Temp 98.8 F 03/27/24 05:30 Pulse 70 03/27/24 08:00 Resp 9 L 03/27/24 08:00 BP 158/114 03/27/24 08:00 Pulse Ox 95 03/27/24 08:00 O2 Del Method Room Air 03/27/24 07:30 03/26/24 03/27/24 03/27/24 22:59 06:59 14:59 Intake Total 670.683 / 1430.024 8729.333 / 2293.066 Output Total Balance 670.683 / 5800.923 0412.333 / 2292.066 Weight last 48 hrs Weight 58.5 kg Weight 56.88 kg Weight 62 kg Weight 54.431 kg Physical Exam 2 Narrative: awake , alert no distress s1s2 rrr PER REPORT LUNG CLEAR PER REPORT NO EDEMA Data 03/28/24 04:26 03/28/24 04:26 A&P Assessment and plan (1) ESRD (end stage renal disease): (2) NSTEMI (non-ST elevated myocardial infarction): Plan 1. End-stage renal disease: HD today 2. History of coronary artery disease with NSTEMI- cardiology following 3. Hyperkalemia, low K diet and HD as above 4. History of hypertension 5. Anemia: Hemoglobin 6. HTN : on coreg , and lisinopril , BP elevated , titrate meds Patient evaluated using audiovisual cart. Time spent 40 minutes. Attestations 2 Medical Necessity Statement*: per medicine Coding Level of Care Code Acute Code for [facility] Fwd Diagnoses ESRD (end stage renal disease) N18.6 NSTEMI (non-ST elevated myocardial infarction) I21.4
[2024-03-27] MEDS: nitroglycerin 0.4 mg sublingual Tablet SUBLINGUAL (09:20)
[2024-03-27 10:55] LABS: Partial Thromboplastin Time 68.8 SECONDS (23.9-36.7)
[2024-03-27 11:18] LABS: Glucose Point of Care 117 mg/dL (70-110)
--- NOTE | 2024-03-27 11:33 | PC.NURSE ---
Dr. Gallegos ordered to pause the heparin drip 1 hour before the angiogram procedure.
--- NOTE | 2024-03-27 11:57 | P.PN_ITS ---
Subjective 2 Subjective: Patient was seen this morning, she is alert oriented, Following All Commands, Plan on Cardiac Catheterization Today, Vitals/I&O/Wt Last Vital Signs Temp 98.8 F 03/27/24 05:30 Pulse 70 03/27/24 10:00 Resp 13 03/27/24 10:00 BP 152/86 03/27/24 10:00 Pulse Ox 97 03/27/24 10:00 O2 Del Method Room Air 03/27/24 10:00 03/26/24 03/27/24 03/27/24 22:59 06:59 14:59 Intake Total 670.683 / 9251.451 4765.333 / 2293.066 142.817 / 142.817 Output Total Balance 670.683 / 1286.654 5404.333 / 2292.066 142.817 / 142.817 Weight last 48 hrs Weight 58.5 kg Weight 56.88 kg Weight 62 kg Weight 54.431 kg Physical Exam 2 Const: COMMON NORMALS: no acute distress and patient oriented x3 Resp: COMMON NORMALS: normal respiratory effort, No retractions, No use of accessory muscles and clear to auscultation bilaterally AUSCULTATION: clear to auscultation bilaterally Cardio: COMMON NORMALS: regular rate, regular rhythm, S1 normal heart sound present and S2 normal heart sound present RATE: regular rate RHYTHM: r egular rhythm HEART SOUNDS: S1 normal heart sound present and S2 normal heart sound present GI: COMMON NORMALS: Normal to inspection, nondistended, normoactive bowel sounds present and non-tender Extremity: COMMON NORMALS: no pedal edema Neuro: COMMON NORMALS: patient oriented x3 Psych: COMMON NORMALS: mental status grossly normal Data 03/27/24 03:15 03/27/24 03:15 A&P Assessment and plan (1) CHF (congestive heart failure), NYHA class III: Qualifiers: Congestive heart failure type: systolic Congestive heart failure chronicity: acute on chronic Qualified Code(s): I50.23 - Acute on chronic systolic (congestive) heart failure (2) Atherosclerotic heart disease of [place] coronary artery with other forms of angina pectoris: (3) NSTEMI (non-ST elevated myocardial infarction): (4) CAD (coronary artery disease): (5) Chest pain: (6) Hyperlipidemia: Qualifiers: Hyperlipidemia type: mixed hyperlipidemia Qualified Code(s): E78.2 - Mixed hyperlipidemia (7) Hyperkalemia: Plan Chest pain with NSTEMI ? Baseline troponin 297, EKG no acute ST-T wave changes ? Recent history of cardiac cath 11/2023 1. Severe mid LAD stenosis s/p successful revascularization with 1 stent.. 2. Mid Left Anterior Descending to Mid Left Anterior Descending was treated with a Balloon, Drug Eluting Stent, and Balloon -Echocardiogram December 2023 -.CONCLUSIONS Moderate concentric left ventricular hypertrophy. Slightly dyskinetic basal inferior wall segment.Grade III/IV diastolic dysfunction (restrictive filling pattern), severely elevated filling pressures. Normal LV size with an ejection fraction of 55%. Mildly increased left atrial size. Mild mitral valve regurgitation. There is no pericardial effusion. There are no intracardiac masses. Compared to the study from 11/27/2023, there may not be a significant change ? Plan ? Serial EKGs, serial troponins, telemetry monitoring ? Hyperkalemia has resolved ? Heparin drip ? Aspirin, statin, Brilinta -On discharge will likely need to switch from Brilinta to Plavix as patient is having affordability issues ? Coreg ? Cardiac echo CONCLUSIONS Moderate to severe left ventricular hypertrophy. LV systolic function is normal with EF 55 to 60%. Trace mitral regurgitation. Compared to prior echocardiogram from 01/2024, no significant changes are seen. ? BNP is over 4700 no clinical evidence of fluid overload, ? Monitor closely -Due to persistent chest pain, will consult cardiology, plan on cardiac catheterization today Hyperkalemia, resolved ? Status post insulin, D10 -Will receive dialysis End-stage renal disease, on dialysis, received dialysis yesterday Plan for today monitor for chest pain, heparin drip to be held, plan for cardiac catheterization today, possible discharge thereafter Attestations 2 Medical Necessity Statement*: Patient requires hospitalization for chest pain, with NSTEMI Diagnoses Acute on chronic systolic congestive heart failure, NYHA class 3 I50.23 Congestive heart failure type: systolic Congestive heart failure chronicity: acute on chronic Atherosclerotic heart disease of [place] coronary artery with other forms of angina pectoris I25.118 NSTEMI (non-ST elevated myocardial infarction) I21.4 CAD (coronary artery disease) I25.10 Chest pain R07.9 Mixed hyperlipidemia E78.2 Hyperlipidemia type: mixed hyperlipidemia Hyperkalemia E87.5
--- NOTE | 2024-03-27 13:19 | PC.SOCIAL ---
IMM Updated Updated pt on IMM. No questions voiced. Provided pt a copy. Initialed, dated, & timed a copy & placed in chart.
--- NOTE | 2024-03-27 13:21 | XACV_ITS ---
Exam Room: [facility] Ht: 152 cm Wt: 58 kg BSA: 1.58 m2 Gender: Female : 1985 Any Known Allergies: Other Exam Priority: Routine Procedure(s): Procedure Description: Diagnostic procedure Procedure Description: PCI procedure Procedure Description: Left Heart Catheterization Procedure Description: PTCA Procedure Description: Miscellaneous Procedure Description: Angio-Seal Procedure Description: ACT Procedure Description: Coronary Angiography El REA; Diagnostic Cath Status: Elective Diagnostic Findings * Left main: Luminal irregularity with distal 20 to 30% stenosis LAD has luminal irregularity with mid patent previously placed stent Left circumflex has luminal irregularity with patent previously placed proximal stent RCA is 100% occluded in the mid segment it has [id number] faint collaterals it appeared to be the culprit vessel. PCI Status: Elective PCI Indication: NSTE - ACS Interventional Findings * Successful PCI to distal RCA. Lesion was prepared with 2.5 x 20 mm AB TREK balloon, followed by deployment of CYNTHIA MDT 3.0 x 18 mm stent posted at high ROSIE of 14 mm. Stent was then post-dilated with serial dilatation of NC MDT EUPHORA 3.25 x 12 at 18 ROSIE in its entire length to ensure proper approximation. Excellent angiographic result with KORIN-3 flow was achieved. Conclusions 1. Successful PCI to distal RCA. Lesion was prepared with 2.5 x 20 mm AB TREK balloon, followed by deployment of CYNTHIA MDT 3.0 x 18 mm stent posted at high ROSIE of 14 mm. Stent was then post-dilated with serial dilatation of NC MDT EUPHORA 3.25 x 12 at 18 ROSIE in its entire length to ensure proper approximation. Excellent angiographic result with KORIN-3 flow was achieved. Recommendations * 1-Return to inpatient for close monitoring and routine cath care 2-Risk factor modification for secondary prevention 3-Statin with LDL goal <70 mg/dl, aspirin 81 mg life-long 4-Patient was pre-loaded with 180mg of Brillinta. Continue Brillinta 90mg p.o. twice daily for at least one year. We will assess at the end of one year again to continue it further or not 5-Continue optimal medical management 6-Follow up with Dr. Burch in four weeks and with your PCP in one week. Interventional RX Recommendation: PCI w/o planned CABG Diagnostic RX Recommendation: PCI w/o planned CABG Pressures Phase:Rest AO : 164 / 93 ( 121 ) @ 5:53:00 PM 152 / 85 ( 113 ) @ 6:00:00 PM 145 / 66 ( 96 ) @ 6:00:00 PM 55 / 44 ( 49 ) @ 6:08:00 PM 117 / 91 ( 105 ) @ 6:09:00 PM 115 / 95 ( 106 ) @ 6:09:00 PM 90 / 72 ( 81 ) @ 6:15:00 PM 91 / 63 ( 78 ) @ 6:28:00 PM LV : 143 / 5 / 26 @ 5:59:00 PM 147 / 9 / 30 @ 6:00:00 PM Valves Phase:DefaultPhase AV : 0.0 @ 5:43:48 PM AV Mean Gradient: 0.0 @ 5:43:48 PM Clinical Evaluation EBL: 5mL-10mL Procedural Details Pre-Procedure Time Out. Identified patient by full name and date of as verbalized by the patient/guarantor. Does the consent match the physician's order: Yes. Accurate & Complete Informed Consent: Yes. Inpatient/Outpatient History & Physical on Chart: Yes. If H&P is completed, is and addenduem needed: No; If yes, is the addendum complete: N/A. Visualize and Verify Site with Patient/Guarantor: N/A. Relevant Radiology Images available: Yes. Pre-op teaching completed and patient verbalized understanding. The risks, benefits, and alternatives of sedation and/or procedure were discussed by physician. The patient agrees to continue. Procedure started. Current Diagnosis : Chest Pain. [facility] Clinical Fraility Score: 5: Mildly Frail. Brass Pickler Indications: Worsening Angina. Chest Pain Symptom Assessment: Atypical Angina. Correct patient, site and procedure confirmed by cath team. Current diagnosis: Chest Pain. PERRLA. Strong, equal hand gathering machine setter bilaterally. Lungs clear x 5 lobes. IV Site on Arrival: 20 gauge in the left forearm. IV Fluids: 0.9% NaCl at KVO. 0 mL infused prior to research lab assistant. Oxygen started at 2liters/min via nasal canula. bilateral groins was prepped with chloroprep then draped in the usual sterile fashion. Baseline sample Acquired. HR: 72 BPM. Physician arrived. Physician scrubbed in. Immediate Pre-Procedure Time Out. Correct Patient: Yes; Correct Procedure: Yes; Correct Site: Yes; Correct Patient Position: Yes; Correct Supplies: Yes; Dried Flammable Prep: Yes; Blood Products Available: N/A;. Lidocaine 1% infiltrated to the right groin. Arterial access obtained with micropuncture set. A 5 [place] JL4 catheter in over wire. Multiple views taken of left coronary artery. Catheter removed over the standard wire. A 5 [place] JR4 catheter in over wire. EDP Sample taken: LV 143/5,26; HR: 73 BPM; SpO2: 100%. Pullback taken: LV 147/9,30; AO 152/85(113); Mean: 0mmHg, Peak to Peak: 0mmHg, SEP: 7sec/min; HR: 69 BPM; SpO2: 100%. Multiple views taken of right coronary artery. Catheter removed over the standard wire. 6 [place] JR 4 guide catheter was inserted over the wire. ACT drawn. Results 172 seconds. Therapeutic limits - pre-heparin administration 90-150 seconds and monitoring heparin during a vascular procedure >250 seconds. Runthrough guidewire was advanced through the guide catheter to lesion in the mid RCA. AP Pads placed on the patient. Inflation number : 1 A AB TREK 2.50X20 RX BALLOON was prepped and advanced across the Mid RCA , then inflated to 12 ROSIE for 0:17 seconds. Inflation number: 2 The AB TREK 2.50X20 RX BALLOON was reinflated across the Mid RCA, to 12 ROSIE for 0:17 seconds. Inflation number: 3 The AB TREK 2.50X20 RX BALLOON was reinflated across the Mid RCA, to 12 ROSIE for 0:17 seconds. Balloon out. Results checked. Balloon inserted to lesion in the distal RCA. Inflation number: 1 The AB TREK 2.50X20 RX BALLOON was reinflated across the Dist RCA, to 12 ROSIE for 0:21 seconds. Balloon out. Results checked. Inflation Number : 2 A MDT R CYNTHIA 3.0X18 OLENA -Lot Number# _[id number] EXP: 12/14/2024 was prepped and advanced across the Dist RCA. The stent was deployed at 14 ROSIE for 0:27 seconds. Stent balloon out over wire. Results checked. Inflation number : 3 A MDT NC EUPHORA RX [id number] BALLOON was prepped and advanced across the Dist RCA , then inflated to 12 ROSIE for 0:32 seconds. Inflation number: 4 The MDT NC EUPHORA RX [id number] BALLOON was reinflated across the Dist RCA, to 12 ROSIE for 0:13 seconds. Inflation number: 4 The MDT NC EUPHORA RX [id number] BALLOON was reinflated across the Mid RCA, to 8 ROSIE for 0:14 seconds. Balloon out. Results checked. ACT drawn. Results 369 seconds. Therapeutic limits - pre-heparin administration 90-150 seconds and monitoring heparin during a vascular procedure >250 seconds. Wire out. Guide catheter out. A Right femoral angiogram was performed to determine safe placement of closure device. Lidocaine 1% infiltrated to the right groin. A Angio-Seal VIP ([facility]) was successful obtaining hemostatsis at the Right Femoral artery insertion site. Post Procedure: Pulses reassessed and unchanged. PERRLA. Strong, equal hand gathering machine setter bilaterally. No VTE prophylaxis required. Medication's Wasted: Other = Hydralazine 10 mg. Medication's Wasted: Heparin = 1000 units. Medication's Wasted: Other = Atropine 0.5 mg. Medication's Wasted: Nitro = 49.8 mcg. Total IV fluids: 200 mL. Vital chart was stopped. Post-op diagnosis: Stent to RCA. Complications: None. Estimated blood loss: 5mL-10mL. Responsiveness - Normal response to verbal stimuli; alert and oriented, PERRLA. Circulation: W/N/L, pulses unchanged. Nausea/Vomiting: No. Airway - Unaffected, no intervention required; spontaneous ventilation. Procedure completed. Patient transferred by bed to ICU. Access Site Site: Right Femoral artery Sheath Size: 6 Fr Hemostasis Method: Angio-Seal VIP ([facility]) Hemostasis Success: Successful Complication Findings: none. Procedure Medications Start: 4:27 PM Stop: 4:27 PM Medication: Benadryl Amount: 50 mg Route: I.V. Start: 4:51 PM Stop: 4:51 PM Medication: Versed Amount: 1 mg Route: I.V. Start: 4:51 PM Stop: 4:51 PM Medication: Fentanyl Amount: 50 mcg Route: I.V. Start: 4:53 PM Stop: 4:53 PM Medication: Hydralazine Amount: 10 mg Route: I.V. Start: 4:56 PM Stop: 4:56 PM Medication: Versed Amount: 1 mg Route: I.V. Start: 4:56 PM Stop: 4:56 PM Medication: Fentanyl Amount: 50 mcg Route: I.V. Start: 5:04 PM Stop: 5:04 PM Medication: Heparin Amount: 5000 units Route: I.V. Start: 5:08 PM Stop: 5:08 PM Medication: Atropine Amount: 0.5 mg Route: I.V. Start: 5:28 PM Stop: 5:28 PM Medication: Nitrogylcerin Amount: 200 mcg Route: I.C. I, the attending physician, have reviewed and verified all procedure medications. Yes, all medications given per verbal order History/Risk Factors Hypertension: Yes Dyslipidemia: No Peripheral Arterial Disease (PAD): Yes Myocardial Infarction (GA): No Obesity: No Renal Disease: No Tobacco Use: Current/Recent(w/in 1 year) Prior Interventions PCI: Yes CABG: No Valve Surgery: No Date of PCI: 11/28/2023 Report Signatures Finalized by Austin Gallegos MD on 03/28/2024 05:56 PM
[2024-03-27 14:03] LABS: Glucose Point of Care 116 mg/dL (70-110)
--- NOTE | 2024-03-27 16:26 | PC.NURSE ---
Patient off unit to hospital laboratory technician at 1605.
--- NOTE | 2024-03-27 16:39 | W.PM.OPSUD ---
Surgery/Procedure H&P Update DATE OF PROCEDURE: March 27, 2024 DATE H&P PERFORMED: 02/25/24 H&P UPDATE INFORMATION: I have reviewed H&P completed within last 30 days, I have examined patient prior to procedure and No changes to prior documentation PATIENT REASSESSED PRIOR TO SEDATION, WITH NO CHANGE NOTED: Yes PHYSICAL EXAM: alert, oriented x 3, clear to auscultation bilaterally, regular rate & rhythm and operative site marked OTHER PERTINENT EXAM FINDINGS: Patient has been explained all risk-benefit and alternative for the procedure including major minor bleed contrast induced nephropathy urgent emergent cardiac and vascular surgery bruising hematoma worst-case scenario and stroke. She agrees to it and would like to proceed with it. AIRWAY EVAL/ANESTHESIA PLAN: ASA II, Risks, benefits & alternatives of sedation and/or procedure discussed and Patient agrees to continue as planned
--- NOTE | 2024-03-27 17:55 | P.PN_ITS ---
Subjective 2 Subjective: Status post left heart catheterization, noted to have 100% occluded distal RCA. It was treated with single drug-eluting stent postdilated with noncompliant balloon, excellent angiographic result with KORIN-3 flow was noted. Medications: Reviewed: Yes Vitals/I&O/Wt Last Vital Signs Temp 98.8 F 03/27/24 05:30 Pulse 72 03/27/24 15:30 Resp 10 L 03/27/24 15:30 BP 169/99 03/27/24 16:00 Pulse Ox 95 03/27/24 15:30 O2 Del Method Room Air 03/27/24 15:30 03/27/24 03/27/24 03/27/24 06:59 14:59 22:59 Intake Total 1149.333 / 2293.066 142.817 / 142.817 Output Total Balance 1148.333 / 2292.066 142.817 / 142.817 Weight last 48 hrs Weight 128 lb 15.527 oz Weight 125 lb 6.4 oz Physical Exam 2 Narrative: GENERAL: Patient is sleepy status post conscious sedation HEART: Regular S1 and S2. No murmur, rub or gallop. LUNGS: Clear to auscultate bilaterally. ABDOMEN: Soft, nontender and nondistended. Positive bowel sounds. No guarding, rebound or tenderness. CENTRAL NERVOUS SYSTEM: Grossly nonfocal. EXTREMITIES: Lower extremities with out edema bilaterally. Const: COMMON NORMALS: alert Resp: COMMON NORMALS: clear to auscultation bilaterally AUSCULTATION: clear to auscultation bilaterally Neuro: SENSORIUM/ORIENTATION: Yes alert Data 03/27/24 03:15 03/27/24 03:15 A&P Assessment and plan (1) NSTEMI (non-ST elevated myocardial infarction): Status post drug-eluting stent to distal RCA for 100% occluded artery, excellent angiographic result with KORIN-3 flow was restored, continue aspirin statin beta-marii, switch patient to Plavix with 600 mg load tomorrow morning followed by 75 mg daily for at least 1 year from day after tomorrow as patient cannot afford Brilinta and she remained noncompliant in the past (2) CHF (congestive heart failure), NYHA class III: Well compensated continue current regimen Qualifiers: Congestive heart failure type: systolic Congestive heart failure chronicity: acute on chronic Qualified Code(s): I50.23 - Acute on chronic systolic (congestive) heart failure (3) Hyperlipidemia: On statin will continue Qualifiers: Hyperlipidemia type: mixed hyperlipidemia Qualified Code(s): E78.2 - Mixed hyperlipidemia (4) ESRD (end stage renal disease): On hemodialysis follow-up with nephrology (5) Accelerated hypertension: Well-controlled continue medicine (6) Uncontrolled type 1 diabetes mellitus: As per medicine Qualifiers: Glycemic state: with hyperglycemia Qualified Code(s): E10.65 - Type 1 diabetes mellitus with hyperglycemia Attestations 2 Medical Necessity Statement*: Patient is post cath for non-ST elevation ID status post drug-eluting stent to distal RCA, postop care may need further stay in the hospital. Coding Level of Care Code Acute Code for [facility] Diagnoses NSTEMI (non-ST elevated myocardial infarction) I21.4 Acute on chronic systolic congestive heart failure, NYHA class 3 I50.23 Congestive heart failure type: systolic Congestive heart failure chronicity: acute on chronic Mixed hyperlipidemia E78.2 Hyperlipidemia type: mixed hyperlipidemia ESRD (end stage renal disease) N18.6 Accelerated hypertension I10 Uncontrolled type 1 diabetes mellitus with hyperglycemia E10.65 Glycemic state: with hyperglycemia
[2024-03-27 18:10] LABS: Glucose Point of Care 106 mg/dL (70-110)
[2024-03-27] MEDS: pantoprazole 40 mg SDV IVP (18:31)
--- NOTE | 2024-03-27 18:41 | PC.NURSE ---
Patient arrived from minilab operator at 1744. Patient was still lethargic from the procedure and nasal cannula was placed for oxygen support. Patient is stable.
[2024-03-27] MEDS: heparin, porcine 1,000 unit/mL INJ 10 mL 1000 UNIT IV (18:47)
[2024-03-27 19:03] LABS: Partial Thromboplastin Time > 250.0 SECONDS (23.9-36.7)
[2024-03-27] MEDS: albumin 12.5 GM/50 ML VIAL IV (20:32)
[2024-03-27] MEDS: heparin, porcine 1,000 unit/mL INJ 10 mL 10000 UNIT INTRACATH (20:48)
[2024-03-27] MEDS: atorvastatin 40 mg Tablet PO (21:55)
[2024-03-27 22:09] LABS: Glucose Point of Care 71 mg/dL (70-110)
--- NOTE | 2024-03-27 22:14 | PC.NURSE ---
Diet patient's blood sugar 71. Dr. Guevara notified and order received to restart diet. Cardiac diet ordered.
[2024-03-27] MEDS: lisinopril 20 mg Tablet 40 MG PO (22:33)
[2024-03-27 23:42] LABS: Glucose Point of Care 60 mg/dL (70-110)
[2024-03-27 23:42] LABS: Glucose Point of Care 83 mg/dL (70-110)
[2024-03-27 23:42] LABS: Glucose Point of Care 70 mg/dL (70-110)
--- NOTE | 2024-03-27 23:43 | PC.NURSE ---
Hypoglycemia Patient consumed sandwich and pudding cup along with some sprite. Blood sugar check revealed blood sugar of 60 at 2302; 4 oz apple juice administered per protocol. At 2321, patient's blood glucose 70; an additional 4 oz of juice administered. Attempted contact with Dr. Guevara and message left via voalte. Blood glucose then 83 at 2338.
[2024-03-28] VITALS (72 sets, daily range): BP systolic 93–189; BP diastolic 49–122; PULSE 68–87; RESP 11–25; TEMP 36.9–37.1; O2SAT 90–99; BMI 25.4
[2024-03-28 00:16] LABS: Glucose Point of Care 102 mg/dL (70-110)
[2024-03-28 01:27] LABS: Glucose Point of Care 130 mg/dL (70-110)
[2024-03-28] MEDS: morphine 4 mg/mL SDV 1 mL 2 MG IVP ×4 (02:45→13:51)
[2024-03-28 04:32] LABS: Basophils # 0.1 10^3/uL (0.0-0.1); Eosinophils # 0.2 10^3/uL (0.0-0.8); Eosinophils % 4.1 %; Hematocrit 30.1 % (36-47); Lymphocytes # 0.9 10^3/uL (0.8-4.8); Lymphocytes % 16.5 %; Mean Corpuscular HGB Conc 30.2 g/dL (30-55); Mean Corpuscular Hemoglobin 29.3 pg (27-33); Mean Corpuscular Volume 96.8 fl (85-98); Mean Platelet Volume 10.6 fL (7.4-10.4); Monocytes # 0.4 10^3/uL (0.2-0.9); Monocytes % 7.8 %; Neutrophils # 3.63 10^3/uL (1.8-7.7); Neutrophils % 70.4 %; Nucleated Red Blood Cells % 0 %; Platelet Count 154 10^3/cmm (157-399); Red Blood Count 3.11 10^6/uL (3.85-5.65); Red Cell Distribution Width 14.4 % (12.1-15.1); White Blood Count 5.15 10^3/uL (3.29-11.43)
[2024-03-28 04:50] LABS: Alanine Aminotransferase 51 U/L (0-33); Albumin Level 3.7 g/dL (3.5-5.2); Alkaline Phosphatase 157 U/L (35-105); Anion Gap 15.5 (5-19); Aspartate Amino Transferase 80 U/L (0-32); Blood Urea Nitrogen 21 mg/dL (6-20); Calcium 8.8 mg/dL (8.5-10.5); Carbon Dioxide 26 mmol/L (22-29); Chloride 102 mmol/L (98-107); Globulin 2.4 g/dL (1.3-4.6); Glomerular Filtration Rate 14.2 mL/min (90-130); Glucose 239 mg/dL (65-115); Magnesium 1.8 mg/dL (1.7-2.3); Osmolality Calculated 299 mOsm/kg (285-295); Potassium 4.5 mmol/L (3.5-5.1); Sodium 139 mmol/L (136-145); Total Bilirubin 0.3 mg/dL (0.15-1.2); Total Protein 6.1 g/dL (6.6-8.7)
[2024-03-28 04:54] LABS: Creatinine Clr Calc Pharmacy 17.1249
[2024-03-28 05:20] LABS: NT Pro B Type Natriuretic Pept 39898 pg/mL (0-125)
[2024-03-28] MEDS: aspirin 81 mg EC Tablet PO (06:37)
[2024-03-28] MEDS: carvedilol 3.125 mg Tablet PO (08:17)
[2024-03-28] MEDS: escitalopram 10 mg Tablet PO (08:17)
[2024-03-28] MEDS: gabapentin 100 mg Capsule PO ×2 (08:17→15:22)
[2024-03-28] MEDS: clopidogrel 300 mg Tablet 600 MG PO (08:18)
[2024-03-28] MEDS: heparin 5,000 unit/mL INJ 1 mL 5000 UNIT SUBCUT (08:18)
[2024-03-28] MEDS: insulin lispro 100 unit/1 mL SUBCUT (08:18)
[2024-03-28] MEDS: sevelamer 800 mg Tablet PO (08:18)
--- NOTE | 2024-03-28 10:42 | PM.DCS ---
Discharge Providers Date of Admission: 03/25/24 15:03 Date of Discharge: March 28, 2024 Attending Provider at Admission: Shola Carrera MD Attending Provider at Discharge: Shola Carrera MD Primary Care Provider: SUZANNE Dias Diagnoses at Discharge Discharge Diagnosis (1) NSTEMI (non-ST elevated myocardial infarction): Status: Acute (2) CHF (congestive heart failure), NYHA class III: Status: Chronic Qualifiers: Congestive heart failure type: systolic Congestive heart failure chronicity: acute on chronic Qualified Code(s): I50.23 - Acute on chronic systolic (congestive) heart failure (3) Hyperlipidemia: Status: Chronic Qualifiers: Hyperlipidemia type: mixed hyperlipidemia Qualified Code(s): E78.2 - Mixed hyperlipidemia (4) ESRD (end stage renal disease): Status: Acute (5) Accelerated hypertension: Status: Acute (6) Uncontrolled type 1 diabetes mellitus: Status: Acute Qualifiers: Glycemic state: with hyperglycemia Qualified Code(s): E10.65 - Type 1 diabetes mellitus with hyperglycemia Reason for Visit Reason for Visit: CP Hospital Course Hospital Course Donita Aguilar is a 38 year old female with a past medical history of CAD status post stenting, end-stage renal disease on dialysis, history of C. difficile colitis, who presents [facility] for chest pain. Patient tells me that she missed dialysis yesterday, she did go on Saturday they took about 2 L of fluid off of her. Today she started experiencing severe substernal chest pain radiating up to the left neck, no diaphoresis, no nausea, no vomiting, no lightheadedness, no dizziness. Yesterday she did have a fall, accidental tripping, she fell hitting her right leg, continues to have moderate pain Chest pain with NSTEMI ? Baseline troponin 297, EKG no acute ST-T wave changes ? Recent history of cardiac cath 11/2023 1. Severe mid LAD stenosis s/p successful revascularization with 1 stent.. 2. Mid Left Anterior Descending to Mid Left Anterior Descending was treated with a Balloon, Drug Eluting Stent, and Balloon -Echocardiogram December 2023 -.CONCLUSIONS Moderate concentric left ventricular hypertrophy. Slightly dyskinetic basal inferior wall segment.Grade III/IV diastolic dysfunction (restrictive filling pattern), severely elevated filling pressures. Normal LV size with an ejection fraction of 55%. Mildly increased left atrial size. Mild mitral valve regurgitation. There is no pericardial effusion. There are no intracardiac masses. Compared to the study from 11/27/2023, there may not be a significant change CONCLUSIONS Moderate to severe left ventricular hypertrophy. LV systolic function is normal with EF 55 to 60%. Trace mitral regurgitation. Compared to prior echocardiogram from 01/2024, no significant changes are seen. -Patient reports that she has not been taking Brilinta for over a month, due to affordability -Patient is once monitored as inpatient, monitored on anticoagulant therapy, aspirin, statin, Brilinta, beta-marii, cardiology was consulted, underwent cardiac catheterization, status post 1 stent to RCA, tolerated procedure well -She will be discharged on aspirin, statin, Coreg -Brilinta was stopped, she was given a loading dose of Plavix 600 mg, start 75 mg of Plavix once daily -On discharge I had extensive discussion with patient about the morbidity and mortality associated with CAD, not following medical instructions, if she has any issues she should call us, we are here to help -Discussed with her that aspirin and Plavix must be taken to keep her cardiac stents open, if she stops taking these medication she has a high risk of morbidity and mortality, high risk of complications -She should continue them unless instructed by physician -If she has any issues in terms of affordability, please let us know, we can help her -Follow-up with cardiology in 1 week -If any recurrent chest pain please go to the emergency room Physical Exam Const: COMMON NORMALS: no acute distress and patient oriented x3 Resp: COMMON NORMALS: normal respiratory effort, No retractions, No use of accessory muscles and clear to auscultation bilaterally AUSCULTATION: clear to auscultation bilaterally Cardio: COMMON NORMALS: regular rate, regular rhythm, S1 normal heart sound present and S2 normal heart sound present RATE: regular rate RHYTHM: regular rhythm HEART SOUNDS: S1 normal heart sound present and S2 normal heart sound present GI: COMMON NORMALS: Normal to inspection, nondistended, normoactive bowel sounds present and non-tender Extremity: COMMON NORMALS: no pedal edema Neuro: COMMON NORMALS: patient oriented x3 Psych: COMMON NORMALS: mental status grossly normal Discharge Data Studies Completed and Pending Completed Studies During Hospitalization Category Date Time Status XR chest 1V portable [id number] Stat Exams 03/25/24 13:46 [place] [id number] Routine Ultrasound 03/25/24 16:47 Completed CV. 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 No acute cardiopulmonary process. Laboratory Results WBC 5.15 10^3/uL (3.29-11.43) 03/28/24 04:26 RBC 3.11 10^6/uL (3.85-5.65) L 03/28/24 04:26 Hgb 9.10 g/dL (11.27-16.99) L 03/28/24 04:26 Hct 30.1 % (36-47) L 03/28/24 04:26 MCV 96.8 fl (85-98) 03/28/24 04:26 MCH 29.3 pg (27-33) 03/28/24 04:26 MCHC 30.2 g/dL (30-55) 03/28/24 04:26 RDW 14.4 % (12.1-15.1) 03/28/24 04:26 Plt Count 154 10^3/cmm (157-399) L 03/28/24 04:26 MPV 10.6 fL (7.4-10.4) H 03/28/24 04:26 Neut % (Auto) 70.4 % 03/28/24 04:26 Lymph % (Auto) 16.5 % 03/28/24 04:26 Schley % (Auto) 7.8 % 03/28/24 04:26 Eos % (Auto) 4.1 % 03/28/24 04:26 Baso % (Auto) 1.0 % 03/28/24 04:26 Neut # (Auto) 3.63 10^3/uL (1.8-7.7) 03/28/24 04:26 Lymph # (Auto) 0.9 10^3/uL (0.8-4.8) 03/28/24 04:26 Schley # (Auto) 0.4 10^3/uL (0.2-0.9) 03/28/24 04:26 Eos # (Auto) 0.2 10^3/uL (0.0-0.8) 03/28/24 04:26 Baso # (Auto) 0.1 10^3/uL (0.0-0.1) 03/28/24 04:26 Nucleated RBC % (auto) 0 % 03/28/24 04:26 Nucleated RBCs # 0.0 /100WBC 03/28/24 04:26 APTT > 250.0 SECONDS (23.9-36.7) H* D 03/27/24 18:08 Sodium 139 mmol/L (136-145) 03/28/24 04:26 Potassium 4.5 mmol/L (3.5-5.1) 03/28/24 04:26 Chloride 102 mmol/L (98-107) 03/28/24 04:26 Carbon Dioxide 26 mmol/L (22-29) 03/28/24 04:26 Anion Gap 15.5 (5-19) 03/28/24 04:26 BUN 21 mg/dL (6-20) H 03/28/24 04:26 Creatinine 3.6 mg/dL (0.5-0.9) H 03/28/24 04:26 GFR Calculation 14.2 mL/min (90-130) L 03/28/24 04:26 Glucose 239 mg/dL (65-115) H 03/28/24 04:26 POC Glucose 130 mg/dL (70-110) H 03/28/24 01:20 Estimat Average Glucose 146 03/25/24 14:17 Hemoglobin A1c 6.7 % (4.0-6.0) H 03/25/24 14:17 Calculated Osmolality 299 mOsm/kg (285-295) H 03/28/24 04:26 Calcium 8.8 mg/dL (8.5-10.5) 03/28/24 04:26 Phosphorus 5.0 mg/dL (2.5-4.5) H 03/28/24 04:26 Magnesium 1.8 mg/dL (1.7-2.3) 03/28/24 04:26 Total Bilirubin 0.3 mg/dL (0.15-1.2) 03/28/24 04:26 AST 80 U/L (0-32) H 03/28/24 04:26 ALT 51 U/L (0-33) H 03/28/24 04:26 Alkaline Phosphatase 157 U/L (35-105) H 03/28/24 04:26 Troponin T 5th Gen ng/L 286 ng/L (0-10) H* 03/26/24 03:17 Troponin T Baseline 297 ng/L (0-10) H* 03/25/24 14:17 Troponin T 120 Minute 282.9 ng/L (0-10) H 03/25/24 16:50 Delta Troponin T -14.1 ABS# (0-10) L 03/25/24 16:50 Troponin T Hi Sens 6Hr 247.7 ng/L (0-10) H 03/25/24 20:14 Troponin T Hi Sens 6Hr Delta -49.3 ng/L (0-12) L 03/25/24 20:14 NT-Pro-B Natriuret Pep 66617 pg/mL (0-125) H 03/28/24 04:26 Total Protein 6.1 g/dL (6.6-8.7) L 03/28/24 04:26 Albumin 3.7 g/dL (3.5-5.2) 03/28/24 04:26 Globulin 2.4 g/dL (1.3-4.6) 03/28/24 04:26 TSH 3.89 uIU/mL (0.27-4.20) 03/25/24 14:17 Vitals Last Vital Signs Temp 98.5 F 03/28/24 05:00 Pulse 70 03/28/24 08:22 Resp 12 03/28/24 07:04 BP 155/89 03/28/24 06:30 Pulse Ox 94 03/28/24 08:22 O2 Del Method Room Air 03/28/24 08:22 O2 Flow Rate 1 03/28/24 00:30 Discharge Plan Discharge Patient Disposition: Home Condition: Stable Prescriptions: New clopidogrel 75 mg Tablet 75 mg PO DAILY 30 Days Qty: 30 0RF carvedilol 3.125 mg Tablet 3.125 mg PO BID 30 Days Qty: 60 0RF nitroglycerin 0.4 mg Tablet, Sublingual 0.4 mg sublingual Q5M PRN (Reason: Chest Pain) 30 Days Qty: 30 0RF Continued atorvastatin 40 mg tablet 40 mg PO BEDTIME 30 Days Qty: 30 0RF aspirin 81 mg tablet,delayed release (DR/EC) 81 mg PO QAM 30 Days Qty: 30 0RF fluticasone furoate-vilanterol [Breo Ellipta] 100-25 mcg/dose Blister With Device 1 inh INHALATION DAILY PRN (Reason: Shortness Of Breath) sevelamer carbonate 800 mg Tablet 800 mg PO TID Qty: 90 0RF clonidine HCl 0.1 mg tablet See Rx Instructions .ROUTE .COMPLEX PRN (Reason: Blood Pressure) Rx Instructions: TAKE 1 TABLET IF SYSTOLIC BLOOD PRESSURE IS GREATER THAN 160, REPEAT ONCE IF SYSTOLIC BLOOD PRESSURE IS STILL OVER 160 AFTER 1 HOUR. lisinopril 40 mg tablet 40 mg PO BEDTIME gabapentin 100 mg Capsule 100 mg PO TID escitalopram oxalate [Lexapro] 10 mg Tablet 10 mg PO DAILY insulin aspart U-100 [Novolog FlexPen U-100 Insulin] 100 unit/mL (3 mL) insulin pen See Rx Instructions .ROUTE .COMPLEX Qty: 15 0RF Rx Instructions: Inject, subcut, 3 times daily, after meals, based on sliding scale provided bumetanide 1 mg tablet 1 mg PO DAILY Rx Instructions: ON NON-DIALYSIS DAYS. 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 Misc See Rx Instructions .Route Qty: 1 0RF Rx Instructions: As directed (DME) Dexcom G6 Sensor Device See Rx Instructions .Route Qty: 3 0RF Rx Instructions: As directed (DME) Dexcom G6 Transmitter Device See Rx Instructions .Route Qty: 1 0RF Rx Instructions: As directed Discharge Orders: Discharge Order (Routine); Ordered 03/28/24 Ordered By: Shola Carrera Referrals: Elizabeth Dougherty FNP [Primary Care Provider] - Gilberto Eugene MD [Physician] - 1 week Discharge Diet: Cardiac Discharge Activity: Resume usual activity Patient Instructions: Opioid Safety Activity Restrictions/Additional Instructions: - For your cardiac stents please take aspirin and Plavix as prescribed -Do not stop taking aspirin and Plavix for any reason unless instructed by physician -Monitor for bloody black stools if so go to emergency room Discharge Attestations Time Spent in Discharge Care*: greater than 30 min Status at Discharge: Cognitive status at discharge: cognitively intact, Behavioral status at discharge: cooperative and independent in ADL's, Quality Metrics Clinical Quality Measures [ Acute Myocardial Infaction { Clinical Trial Participant: No; Contraindication to aspirin: None; Aspirin prescribed; Contraindication to statin: None; Statin prescribed; Contraindication to PCI: None; PCI performed;}. No reported AMI, CVA or VTE this stay] Coding Level of Care Code 80298 Total time (in minutes) for Discharge: 45 Diagnoses NSTEMI (non-ST elevated myocardial infarction) I21.4 Acute on chronic systolic congestive heart failure, NYHA class 3 I50.23 Congestive heart failure type: systolic Congestive heart failure chronicity: acute on chronic Mixed hyperlipidemia E78.2 Hyperlipidemia type: mixed hyperlipidemia ESRD (end stage renal disease) N18.6 Accelerated hypertension I10 Uncontrolled type 1 diabetes mellitus with hyperglycemia E10.65 Glycemic state: with hyperglycemia
--- NOTE | 2024-03-28 10:44 | PM.PN ---
Subjective Subjective: Status post drug-eluting stent to RCA for 100% occluded acute on chronic lesion, patient has history of noncompliance discussed in detail that she should be taking medicine on regular basis for at least 1 year such as clopidogrel. Today we will switch her to clopidogrel for cost issue from [place] she was loaded with 600 mg of Plavix today she will be continuing 75 mg of Plavix for 1 next year. Medications: Reviewed: Yes Vitals/I&O/Wt Last Vital Signs Temp 98.5 F 03/28/24 05:00 Pulse 70 03/28/24 08:22 Resp 12 03/28/24 07:04 BP 155/89 03/28/24 06:30 Pulse Ox 94 03/28/24 08:22 O2 Del Method Room Air 03/28/24 08:22 O2 Flow Rate 1 03/28/24 00:30 03/27/24 03/28/24 03/28/24 22:59 06:59 14:59 Intake Total 290 / 432.817 200 / 200 Balance 290 / 432.817 200 / 200 Weight last 48 hrs Weight 130 lb 1.164 oz Weight 128 lb 15.527 oz Physical Exam Narrative: GENERAL: Patient is alert, awake and oriented x3. HEART: Regular S1 and S2. No murmur, rub or gallop. LUNGS: Clear to auscultate bilaterally. CENTRAL NERVOUS SYSTEM: Grossly nonfocal. EXTREMITIES: Lower extremities with out edema bilaterally. Const: COMMON NORMALS: alert Resp: COMMON NORMALS: clear to auscultation bilaterally AUSCULTATION: clear to auscultation bilaterally Neuro: SENSORIUM/ORIENTATION: Yes alert Data 03/28/24 04:26 03/28/24 04:26 A&P Assessment and plan (1) NSTEMI (non-ST elevated myocardial infarction): Status post drug-eluting stent to distal RCA for 100% occlusion, continue aspirin and statin patient has been switched to Plavix after loading with 600 mg, advised to take Plavix for at least 1 year, continue rest of medications (2) CHF (congestive heart failure), NYHA class III: It is well compensated continue current regimen Qualifiers: Congestive heart failure type: systolic Congestive heart failure chronicity: acute on chronic Qualified Code(s): I50.23 - Acute on chronic systolic (congestive) heart failure (3) Hyperlipidemia: Patient is on statin will continue Qualifiers: Hyperlipidemia type: mixed hyperlipidemia Qualified Code(s): E78.2 - Mixed hyperlipidemia (4) ESRD (end stage renal disease): On hemodialysis follow-up with nephrology (5) Accelerated hypertension: Well-controlled continue medicine (6) Uncontrolled type 1 diabetes mellitus: As per medicine Qualifiers: Glycemic state: with hyperglycemia Qualified Code(s): E10.65 - Type 1 diabetes mellitus with hyperglycemia Attestations Medical Necessity Statement*: From cardiovascular perspective patient can be discharged Coding Level of Care Code Acute Code for [facility] Fwd Diagnoses NSTEMI (non-ST elevated myocardial infarction) I21.4 Acute on chronic systolic congestive heart failure, NYHA class 3 I50.23 Congestive heart failure type: systolic Congestive heart failure chronicity: acute on chronic Mixed hyperlipidemia E78.2 Hyperlipidemia type: mixed hyperlipidemia ESRD (end stage renal disease) N18.6 Accelerated hypertension I10 Uncontrolled type 1 diabetes mellitus with hyperglycemia E10.65 Glycemic state: with hyperglycemia
--- NOTE | 2024-03-28 10:48 | P.PN_ITS ---
Subjective 2 Subjective: no new c/o Medications: Reviewed: Yes Vitals/I&O/Wt Last Vital Signs Temp 98.5 F 03/28/24 05:00 Pulse 70 03/28/24 08:22 Resp 12 03/28/24 07:04 BP 155/89 03/28/24 06:30 Pulse Ox 94 03/28/24 08:22 O2 Del Method Room Air 03/28/24 08:22 O2 Flow Rate 1 03/28/24 00:30 03/27/24 03/28/24 03/28/24 22:59 06:59 14:59 Intake Total 290 / 432.817 200 / 200 Balance 290 / 432.817 200 / 200 Weight last 48 hrs Weight 59 kg Weight 58.5 kg Physical Exam 2 Narrative: awake , alert no distress s1s2 rrr PER REPORT LUNG CLEAR PER REPORT NO EDEMA Data 03/28/24 04:26 03/28/24 04:26 A&P Assessment and plan (1) ESRD (end stage renal disease): (2) NSTEMI (non-ST elevated myocardial infarction): Plan 1. End-stage renal disease: on TTS schedule as out pt , HD today 2. History of coronary artery disease with NSTEMI- cardiology following 3. Hyperkalemia, low K diet and HD as above 4. History of hypertension 5. Anemia: Hemoglobin 6. HTN : on coreg , and lisinopril , BP elevated , titrate meds Patient evaluated using audiovisual cart. Time spent 40 minutes. Attestations 2 Medical Necessity Statement*: per [facility] Coding Level of Care Code Acute Code for [facility] Diagnoses ESRD (end stage renal disease) N18.6 NSTEMI (non-ST elevated myocardial infarction) I21.4
[2024-03-28 10:54] LABS: Glucose Point of Care 291 mg/dL (70-110)
[2024-03-28 12:02] LABS: Glucose Point of Care 51 mg/dL (70-110)
[2024-03-28 12:26] LABS: Glucose Point of Care 56 mg/dL (70-110)
[2024-03-28 12:35] LABS: Glucose Point of Care 56 mg/dL (70-110)
[2024-03-28 12:50] LABS: Glucose Point of Care 121 mg/dL (70-110)
[2024-03-28] MEDS: heparin, porcine 1,000 unit/mL INJ 10 mL 1000 UNIT IV (13:27)
--- NOTE | 2024-03-28 13:38 | PC.NURSE ---
Patient reports pain 12/31, next morphine due at 1500, Dr. Carrera notified and verbal order received to give next dose of morphine early.
[2024-03-28] MEDS: heparin, porcine 1,000 unit/mL INJ 10 mL 10000 UNIT INTRACATH (14:08)
[2024-03-28] MEDS: albumin 12.5 GM/50 ML VIAL IV (14:35)
--- NOTE | 2024-03-28 16:27 | PC.NURSE ---
Patient provided with written and verbal education on new medications and continued medications, care at home of cardiac cath site, S/S to call 911 or seek medical attention. Activity as tolerated. Patient had no questions at the time of discharge. Patient instructed to call provided phone numbers on Saturday to schedule follow up appointment. Patient verbalizes understanding of teachings, patient able to teach back education. Patient brought to personal vehicle via wheelchair.
== END 2024-03-28 16:32 | disposition home or self-care (01) | DRG 321 ==
LOC: ER 15:26 → ICU 15:32
PROVIDERS: Internal Medicine Cardiovascular Disease; Student in an Organized Health Care Education/Training Program; Admitting Provider Family Medicine; Emergency Provider Emergency Medicine; PCP Nurse Practitioner Family; Visit Provider Family Medicine
PROC: 027034Z Dilation of Coronary Artery, One Artery with Drug-eluting Intraluminal Device, Percutaneous Approach (ICD-10-PCS; principal; 2024-03-27 16:00)
PROC: 027034Z Dilation of Coronary Artery, One Artery with Drug-eluting Intraluminal Device, Percutaneous Approach (ICD-10-PCS; 2024-03-27 16:00)
DX: I21.4 Non-ST elevation (NSTEMI) myocardial infarction (principal); I50.23 Acute on chronic systolic (congestive) heart failure; N18.6 End stage renal disease; I13.2 Hypertensive heart and chronic kidney disease with heart failure and with stage 5 chronic kidney disease, or end stage renal disease; I25.10 Atherosclerotic heart disease of native coronary artery without angina pectoris; M79.604 Pain in right leg; W18.30XA Fall on same level, unspecified, initial encounter; E10.22 Type 1 diabetes mellitus with diabetic chronic kidney disease; E10.65 Type 1 diabetes mellitus with hyperglycemia; J44.9 Chronic obstructive pulmonary disease, unspecified; E78.2 Mixed hyperlipidemia; I27.20 Pulmonary hypertension, unspecified; D63.1 Anemia in chronic kidney disease; K76.0 Fatty (change of) liver, not elsewhere classified; E10.43 Type 1 diabetes mellitus with diabetic autonomic (poly)neuropathy; K31.84 Gastroparesis; E10.40 Type 1 diabetes mellitus with diabetic neuropathy, unspecified; F41.9 Anxiety disorder, unspecified; E87.5 Hyperkalemia; Z95.5 Presence of coronary angioplasty implant and graft; Z99.2 Dependence on renal dialysis; Z79.82 Long term (current) use of aspirin; Z79.4 Long term (current) use of insulin; Z79.02 Long term (current) use of antithrombotics/antiplatelets; Z86.16 Personal history of COVID-19; Z87.01 Personal history of pneumonia (recurrent); Z87.891 Personal history of nicotine dependence; Z90.2 Acquired absence of lung [part of]; Z89.421 Acquired absence of other right toe(s)
CPT/HCPCS: 36415; 36416; 71045; 73502; 73590; 73630; 80053; 82962; 83036; 83735; 83880; 84100; 84443; 84484; 85014; 85018; 85025; 85347; 85730; 93005; 93306; 93458; 93970; 94640; 94664; 96372; 96374; 96375; 96376; 99152; 99153; 99284; 99285; C1725; C1760; C1769; C1874; C1887; C1894; C9600; G0269; J0360; J0461; J0612; J1170; J1200; J1644; J1815; J2250; J2270; J2405; J2470; J3010; J3490; J7030; J7613; P9047; Q9967

== ENCOUNTER 2024-03-31 11:57 | Emergency (ER) | payer MEDICARE, MEDICAID, SELFPAY ==
[2024-03-31] VITALS (30 sets, daily range): BP systolic 142–179; BP diastolic 82–112; PULSE 67–70; RESP 9–24; TEMP 36.6; O2SAT 96–100
--- NOTE | 2024-03-31 12:03 | ECG_ITS ---
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[id number] Requested By: Dawna Nick Order Number: [id number] Reading MD: JOSEFA TALLEY Measurements Intervals [place] Rate: 68 P: 53 PA: 202 QRS: -11 QRSD: 104 T: 15 QT: 426 QTc: 456 Interpretive Statements SINUS RHYTHM INFERIOR MYOCARDIAL INFARCTION , OF INDETERMINATE AGE [40+ ms Q WAVE AND/OR ST/T ABNORMALITY IN II/aVF] Compared to ECG 03/25/2024 20:19:52 Myocardial infarct finding now present T-wave abnormality no longer present Possible ischemia no longer present Poor R-wave progression no longer present Electronically Signed On 04-01-2024 20:09:53 CDT by JOSEFA TALLEY [email or web address]
--- NOTE | 2024-03-31 12:14 | PC.NURSE ---
PT was scheduled for dialysis at 1200 today
--- NOTE | 2024-03-31 12:37 | XRR_ITS ---
PROCEDURE INFORMATION: Exam: XR Chest Exam date and time: 03/31/2024 12:55 PM Age: 38 years old Clinical indication: Pain; Angina pectoris; Prior surgery; Surgery date: 6+ months; Surgery type: Surgery--lll lobectomy port cardiac stents; Additional info: Chest pain TECHNIQUE: Imaging protocol: Radiologic exam of the chest. Views: 1 view. COMPARISON: CR XR chest 1V portable [id number] 03/25/2024 2:33 PM FINDINGS: Tubes, catheters and devices: Unchanged dialysis catheter tunneled into the right internal jugular vein and terminating near the superior cavoatrial junction without complication. Lungs: Unchanged scarring in the left lung base. Otherwise, unremarkable. Pleural spaces: Unremarkable. No pleural effusion. No pneumothorax. Heart/Mediastinum: Unremarkable. No cardiomegaly. Bones/joints: Nothing acute. No change. XR/XR chest 1V portable [id number] IMPRESSION: No acute disease.
--- NOTE | 2024-03-31 12:47 | ED_ITS ---
HPI - Chest Pain 2 General: Chief Complaint: Chest Pain Stated Complaint: chest pains Time Seen by Provider: 03/31/24 12:32 History of Present Illness: 38-year-old female with history of diabe aquilino, end-stage renal disease on dialysis, COPD, CHF and a recent IL with stent placement who presents emergency room with left chest pain radiating to her left arm. This has been present basically since she left the hospital. Much worse today. She says she took 2 nitro which did not help. No cough. She is mildly short of breath. No nausea or vomiting. No abdominal pain. No altered mental status. No focal motor deficits. Related Data Home Medications Medication Instructions Recorded Confirmed fluticasone furoate 100 1 inh inhalation DAILY PRN 09/14/23 03/31/24 mcg-vilanterol 25 mcg/dose Shortness Of Breath inhalation powder (Breo Ellipta) clonidine HCl 0.1 mg tablet See Rx Instructions .Route 11/27/23 03/31/24 .COMPLEX PRN Blood Pressure lisinopril 40 mg tablet 40 mg PO BEDTIME 11/27/23 03/31/24 escitalopram oxalate 10 mg tablet 10 mg PO DAILY 12/27/23 03/31/24 (Lexapro) gabapentin 100 mg capsule 100 mg PO TID 12/27/23 03/31/24 bumetanide 1 mg tablet 1 mg PO DAILY 02/11/24 03/31/24 Previous Rx's Medication Instructions Recorded blood-glucose meter,continuous #1 ea 06/12/22 (Dexcom G6 Microfilm Duplicating Unit Supervisor) blood-glucose sensor (Dexcom G6 #3 ea 06/12/22 Sensor device) blood-glucose transmitter (Dexcom #1 ea 06/12/22 G6 Transmitter device) sevelamer carbonate 800 mg tablet 800 mg PO TID #90 tabs 09/16/23 insulin aspart U-100 100 unit/mL See Rx Instructions .Route 01/01/24 (3 mL) subcutaneous pen (Novolog .COMPLEX #15 mL FlexPen U-100 Insulin aspart) aspirin 81 mg tablet,delayed 81 mg PO QAM 30 days #30 tabs 03/28/24 release atorvastatin 40 mg tablet 40 mg PO BEDTIME 30 days #30 tabs 03/28/24 carvedilol 3.125 mg tablet 3.125 mg PO BID 30 days #60 tabs 10/05/24 clopidogrel 75 mg tablet 75 mg PO DAILY 30 days #30 tabs 03/28/24 nitroglycerin 0.4 mg sublingual 0.4 mg sublingual Q5M PRN Chest 03/28/24 tablet Pain 30 days #30 tabs Allergies Allergy/AdvReac Type Severity Reaction Status Date / Time acetaminophen AdvReac Mild ADR-Gastrointestinal Verified 03/25/24 13:54 Upset Review of Systems 2 Narrative: Constitutional symptoms: Negative except as documented in HPI. Skin symptoms: Negative except as documented in HPI. Eye symptoms: Negative except as documented in HPI. ENMT symptoms: Negative except as documented in HPI. Respiratory symptoms: Negative except as documented in HPI. Cardiovascular symptoms: Negative except as documented in HPI. Gastrointestinal symptoms: Negative except as documented in HPI. Genitourinary symptoms: Negative except as documented in HPI. Musculoskeletal symptoms: Negative except as documented in HPI. Neurologic symptoms: Negative except as documented in HPI. Psychiatric symptoms: Negative except as documented in HPI. Endocrine symptoms: Negative except as documented in HPI. PFSH ED 2 PFSH: Medical History (Updated 03/31/24 @ 15:52 by Dawna Briceno MD) Accelerated hypertension Uncontrolled type 1 diabetes mellitus ESRD (end stage renal disease) Dialysis complication Hypoglycemia Hemodialysis catheter dysfunction Hyperkalemia Colitis End stage renal disease on dialysis COPD (chronic obstructive pulmonary disease) Diabetes mellitus Transaminitis Intractable nausea and vomiting Hyperlipidemia HTN (hypertension) CHF (congestive heart failure), NYHA class III Pulmonary hypertension CAD (coronary artery disease) Neurogenic bladder COVID-19 Tobacco dependence Drug abuse Anemia Community acquired pneumonia Esophagitis Long-term insulin use History of pancreatitis Celiac disease Recurrent UTI Non-alcoholic fatty liver disease Arnold-Chiari malformation Diabetic gastroparesis -continue Reglan Diabetic neuropathy associated with type 1 diabetes mellitus Headache, common migraine, intractable, with status migrainosus Pleural effusion 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 History of lung surgery -s/p LLL lobectomy secondary to cavitary pneumonia (2017) History of endoscopy History of cholecystectomy Family History Grandfather Diabetes Mother CAD (coronary artery disease) Diabetes Brother Acute lymphoblastic leukemia (ALL) in child Other Heart disease Hypertension Social History Smoking and tobacco/nicotine status: former use of tobacco/nicotine Quit status (tobacco/nicotine): has quit using Former quit date comment: She previously smoked <1/2 PPD, quit July 2023. Second hand smoke exposure: Yes Alcohol intake: never Substance/Drug Use: current Household members: children Housing: House Marital status: Single Current occupational status: unemployed Physical Exam 2 Narrative: EXAM NARRATIVE: General: Alert, no acute distress. Skin: Warm, dry. Head: Normocephalic, atraumatic. Neck: Supple, trachea midline. Eye: Extraocular movements are intact. Ears, nose, mouth and throat: mucosa moist. Cardiovascular: Regular, Normal peripheral perfusion. Respiratory: Lungs are clear to auscultation, respirations are non-labored, breath sounds are equal, Symmetrical chest wall expansion. Gastrointestinal: Soft, Nontender, Non distended Musculoskeletal: Normal ROM, no deformity. Neurological: Alert and oriented, No focal neurological deficit observed. Psychiatric: Cooperative, patient is tearful Course 2 Vital Signs: Vital signs: Vital Signs Temperature 97.8 F 03/31/24 12:07 Pulse Rate 69 03/31/24 14:50 Respiratory Rate 14 03/31/24 14:50 Blood Pressure 179/103 03/31/24 14:50 Pulse Oximetry 98 03/31/24 14:50 Oxygen Delivery Me thod Room Air 03/31/24 14:50 MDM - Chest Pain Medical Decision Making Differential diagnosis for patient with chest pain includes but is not limited to and based on the above HPI, review of systems and physical exam: Pneumonia. unstable angina. angina. Acute coronary syndrome / IL. Pulmonary embolism. Costochondritis / musculoskeletal. Pleurisy. Pericarditis. Esophageal spasm. Pancreatis. Cholecystitis. Orders placed to evaluate differential diagnosis based on the above differential, HPI and physical exam EKG: Time 1203. Rate 66. Normal sinus rhythm, No ST-T changes, no ectopy, normal [place] & QRS intervals, This was reviewed and interpreted by myself the ER physician at 1207 Repeat EKG: Time 1438. Rate 67. Normal sinus rhythm, No ST-T changes, no ectopy, normal NJ & QRS intervals, This was reviewed and interpreted by myself the ER physician at 1441. No changes from EKG done previously in the ER. No acute ischemic changes. Lab Review: Laboratory results were reviewed and interpreted by myself the emergency room physician. No leukocytosis. Hemoglobin stable at 10. BUN and creatinine are 51 and 6.5 with a potassium of 5.5. Patient is a dialysis patient so this would be expected. Initial troponin was 330 with a repeat of 315. This appears to be her baseline given her end-stage renal disease. Chest x-ray: Borderline cardiomegaly. No acute process. No infiltrate. No pneumothorax. This was reviewed and interpreted by myself the ER physician. I reviewed the patient's medical record. Consultation: I spoke with Dr. Burch who is on-call for cardiology. He is quite familiar with the patient. With no new EKG changes and a stable troponin he recommends discharge home and continued medical management. Reexamination: Patient remained stable. No increased work of breathing. No altered mental status. No focal motor deficits. Assessment and plan: Chest pain Coronary artery disease End-stage renal disease ?Morphine in the emergency room with some improvement. Nitroglycerin did not help. - Discharged home - Discussed plan with patient. Answered any questions. - Evaluation and treatment of this problem were appropriate in the emergency setting. Lab Data 03/31/24 12:54 03/31/24 12:54 Radiology Impressions Chest X-Ray 03/31/24 12:37 IMPRESSION: No acute disease. Laboratory Results WBC 5.74 10^3/uL (3.29-11.43) 03/31/24 12:54 RBC 3.41 10^6/uL (3.85-5.65) L 03/31/24 12:54 Hgb 10.00 g/dL (11.27-16.99) L 03/31/24 12:54 Hct 32.5 % (36-47) L 03/31/24 12:54 MCV 95.3 fl (85-98) 03/31/24 12:54 MCH 29.3 pg (27-33) 03/31/24 12:54 MCHC 30.8 g/dL (30-55) 03/31/24 12:54 RDW 13.9 % (12.1-15.1) 03/31/24 12:54 Plt Count 178 10^3/cmm (157-399) 03/31/24 12:54 MPV 10.8 fL (7.4-10.4) H 03/31/24 12:54 Neut % (Auto) 57.4 % 03/31/24 12:54 Lymph % (Auto) 21.3 % 03/31/24 12:54 Maries % (Auto) 10.3 % 03/31/24 12:54 Eos % (Auto) 9.8 % 03/31/24 12:54 Baso % (Auto) 1.0 % 03/31/24 12:54 Neut # (Auto) 3.30 10^3/uL (1.8-7.7) 03/31/24 12:54 Lymph # (Auto) 1.2 10^3/uL (0.8-4.8) 03/31/24 12:54 Maries # (Auto) 0.6 10^3/uL (0.2-0.9) 03/31/24 12:54 Eos # (Auto) 0.6 10^3/uL (0.0-0.8) 03/31/24 12:54 Baso # (Auto) 0.1 10^3/uL (0.0-0.1) 03/31/24 12:54 Nucleated RBC % (auto) 0 % 03/31/24 12:54 Nucleated RBCs # 0.0 /100WBC 03/31/24 12:54 Sodium 139 mmol/L (136-145) 03/31/24 12:54 Potassium 5.5 mmol/L (3.5-5.1) H 03/31/24 12:54 Chloride 102 mmol/L (98-107) 03/31/24 12:54 Carbon Dioxide 21 mmol/L (22-29) L 03/31/24 12:54 Anion Gap 21.5 (5-19) H 03/31/24 12:54 BUN 51 mg/dL (6-20) H 03/31/24 12:54 Creatinine 6.5 mg/dL (0.5-0.9) H* 03/31/24 12:54 GFR Calculation 7.2 mL/min (90-130) L 03/31/24 12:54 Glucose 222 mg/dL (65-115) H 03/31/24 12:54 Calculated Osmolality 309 mOsm/kg (285-295) H 03/31/24 12:54 Calcium 8.4 mg/dL (8.5-10.5) L 03/31/24 12:54 Total Bilirubin 0.3 mg/dL (0.15-1.2) 03/31/24 12:54 AST 34 U/L (0-32) H 03/31/24 12:54 ALT 32 U/L (0-33) 03/31/24 12:54 Alkaline Phosphatase 147 U/L (35-105) H 03/31/24 12:54 Troponin T Baseline 330 ng/L (0-10) H* 03/31/24 12:54 Troponin T 120 Minute 313.6 ng/L (0-10) H 03/31/24 15:11 Delta Troponin T -16.4 ABS# (0-10) L 03/31/24 15:11 NT-Pro-B Natriuret Pep 57219 pg/mL (0-125) H 03/31/24 12:54 Total Protein 6.9 g/dL (6.6-8.7) 03/31/24 12:54 Albumin 4.0 g/dL (3.5-5.2) 03/31/24 12:54 Globulin 2.9 g/dL (1.3-4.6) 03/31/24 12:54 All radiology interpretation(s) finalized by discharge Discharge Plan Discharge Patient Disposition: Home Clinical Impression: Chest pain, ESRD (end stage renal disease) Condition: Stable Prescriptions: No Action (DME) Dexcom G6 Microfilm Duplicating Unit Supervisor Misc See Rx Instructions .Route Qty: 1 0RF Rx Instructions: As directed (DME) Dexcom G6 Sensor Device See Rx Instructions .Route Qty: 3 0RF Rx Instructions: As directed (DME) Dexcom G6 Transmitter Device See Rx Instructions .Route Qty: 1 0RF Rx Instructions: As directed clopidogrel 75 mg Tablet 75 mg PO DAILY 30 Days Qty: 30 0RF carvedilol 3.125 mg Tablet 3.125 mg PO BID 30 Days Qty: 60 0RF nitroglycerin 0.4 mg Tablet, Sublingual 0.4 mg sublingual Q5M PRN (Reason: Chest Pain) 30 Days Qty: 30 0RF atorvastatin 40 mg tablet 40 mg PO BEDTIME 30 Days Qty: 30 0RF aspirin 81 mg tablet,delayed release (DR/EC) 81 mg PO QAM 30 Days Qty: 30 0RF fluticasone furoate-vilanterol [Breo Ellipta] 100-25 mcg/dose Blister With Device 1 inh INHALATION DAILY PRN (Reason: Shortness Of Breath) sevelamer carbonate 800 mg Tablet 800 mg PO TID Qty: 90 0RF clonidine HCl 0.1 mg tablet See Rx Instructions .ROUTE .COMPLEX PRN (Reason: Blood Pressure) Rx Instructions: TAKE 1 TABLET IF SYSTOLIC BLOOD PRESSURE IS GREATER THAN 160, REPEAT ONCE IF SYSTOLIC BLOOD PRESSURE IS STILL OVER 160 AFTER 1 HOUR. lisinopril 40 mg tablet 40 mg PO BEDTIME gabapentin 100 mg Capsule 100 mg PO TID escitalopram oxalate [Lexapro] 10 mg Tablet 10 mg PO DAILY insulin aspart U-100 [Novolog FlexPen U-100 Insulin] 100 unit/mL (3 mL) insulin pen See Rx Instructions .ROUTE .COMPLEX Qty: 15 0RF Rx Instructions: Inject, subcut, 3 times daily, after meals, based on sliding scale provided bumetanide 1 mg tablet 1 mg PO DAILY Rx Instructions: ON NON-DIALYSIS DAYS. Discharge Orders: Discharge ED (Routine); Ordered 03/31/24 Ordered By: Dawna Briceno Referrals: Elizabeth Dougherty FNP [Primary Care Provider] - Discharge Diet: Usual diet Discharge Activity: Increase activity as tolerated Patient Instructions: Noncardiac Chest Pain (ED) Activity Restrictions/Additional Instructions: Thank you for choosing [facility] for your healthcare needs today. Please realize this is an emergency room and that we are providing you with a medical screening exam and this may not be complete and all inclusive of all the testing and or work up that you may need to determine your ailment or severity of your illness. You have been screened and evaluated and felt safe for discharge. Health conditions do change or evolve sometimes and as such it is important that you follow up with your Primary Doctor to be re checked, 3-5 days is a general good time frame for follow up. You are always welcome to return to the ED for re assessment if your symptoms are worsening or you have new concerns Coding Level of Care Code ED Community Outreach Worker for Reji Chandler
[2024-03-31 13:02] LABS: Basophils # 0.1 10^3/uL (0.0-0.1); Eosinophils # 0.6 10^3/uL (0.0-0.8); Eosinophils % 9.8 %; Hematocrit 32.5 % (36-47); Lymphocytes # 1.2 10^3/uL (0.8-4.8); Lymphocytes % 21.3 %; Mean Corpuscular HGB Conc 30.8 g/dL (30-55); Mean Corpuscular Hemoglobin 29.3 pg (27-33); Mean Corpuscular Volume 95.3 fl (85-98); Mean Platelet Volume 10.8 fL (7.4-10.4); Monocytes # 0.6 10^3/uL (0.2-0.9); Monocytes % 10.3 %; Neutrophils % 57.4 %; Nucleated Red Blood Cells % 0 %; Platelet Count 178 10^3/cmm (157-399); Red Blood Count 3.41 10^6/uL (3.85-5.65); Red Cell Distribution Width 13.9 % (12.1-15.1); White Blood Count 5.74 10^3/uL (3.29-11.43)
[2024-03-31] MEDS: ondansetron 2 mg/ML SDV 2 mL 4 MG IVP (13:19)
[2024-03-31] MEDS: morphine 4 mg/mL SDV 1 mL IVP (13:22)
[2024-03-31 13:23] LABS: Troponin(5th) Baseline 330 ng/L (0-10)
[2024-03-31 13:33] LABS: Alanine Aminotransferase 32 U/L (0-33); Alkaline Phosphatase 147 U/L (35-105); Anion Gap 21.5 (5-19); Aspartate Amino Transferase 34 U/L (0-32); Blood Urea Nitrogen 51 mg/dL (6-20); Calcium 8.4 mg/dL (8.5-10.5); Carbon Dioxide 21 mmol/L (22-29); Chloride 102 mmol/L (98-107); Creatinine Clr Calc Pharmacy 9.3498; Globulin 2.9 g/dL (1.3-4.6); Glomerular Filtration Rate 7.2 mL/min (90-130); Glucose 222 mg/dL (65-115); Osmolality Calculated 309 mOsm/kg (285-295); Potassium 5.5 mmol/L (3.5-5.1); Sodium 139 mmol/L (136-145); Total Bilirubin 0.3 mg/dL (0.15-1.2); Total Protein 6.9 g/dL (6.6-8.7)
[2024-03-31 13:55] LABS: NT Pro B Type Natriuretic Pept 50100 pg/mL (0-125)
--- NOTE | 2024-03-31 14:38 | ECG_ITS ---
[facility] Test Date: 2024-03-31 Pat Name: Donita Aguilar Department: Room: Gender: Female Pattern Cutter: : 1985 Requested By: Dawna Nick Order Number: [id number] Reading MD: JOSEFA TALLEY Measurements Intervals [place] Rate: 67 P: 37 [place]: 194 QRS: -12 QRSD: 108 T: 13 QT: 429 QTc: 456 Interpretive Statements SINUS RHYTHM INFERIOR MYOCARDIAL INFARCTION , PROBABLY OLD [40+ ms Q WAVE AND/OR ST/T ABNORMALITY IN II/aVF] Compared to ECG 03/31/2024 12:03:03 No significant changes Electronically Signed On 04-01-2024 20:13:04 CDT by JOSEFA TALLEY [id number]
[2024-03-31 15:38] LABS: Troponin 5 2HR Delta -16.4 ABS# (0-10)
[2024-03-31 15:40] LABS: Troponin 5 2HR 313.6 ng/L (0-10)
== END 2024-03-31 16:10 | disposition home or self-care (01) ==
PROVIDERS: Emergency Provider Emergency Medicine; PCP Nurse Practitioner Family
DX: R07.9 Chest pain, unspecified (principal); Z79.02 Long term (current) use of antithrombotics/antiplatelets; Z79.82 Long term (current) use of aspirin; Z79.4 Long term (current) use of insulin; Z87.891 Personal history of nicotine dependence; E10.22 Type 1 diabetes mellitus with diabetic chronic kidney disease; I13.2 Hypertensive heart and chronic kidney disease with heart failure and with stage 5 chronic kidney disease, or end stage renal disease; I50.9 Heart failure, unspecified; N18.6 End stage renal disease; J44.9 Chronic obstructive pulmonary disease, unspecified; E78.5 Hyperlipidemia, unspecified; I25.10 Atherosclerotic heart disease of native coronary artery without angina pectoris
CPT/HCPCS: 36415; 71045; 80053; 83880; 84484; 85025; 93005; 96374; 96375; 99285; J2270; J2405

== ENCOUNTER 2024-04-04 14:34 | Inpatient (IN) | payer MEDICARE, MEDICAID, SELFPAY ==
[2024-04-04] VITALS (21 sets, daily range): BP systolic 123–181; BP diastolic 75–106; PULSE 65–85; RESP 12–18; TEMP 36.4–36.8; O2SAT 97–100; BMI 24.4
--- NOTE | 2024-04-04 14:36 | ECG_ITS ---
[facility] Test Date: 2024-04-04 Pat Name: Donita Aguilar Department: Room: Gender: Female Mounter Hand: : 1985 Requested By: Shravan Nick Order Number: [id number] Faviola MD: Riccardo Burch M.D. Measurements Intervals [place] Rate: 76 P: 43 [place]: 192 QRS: -18 QRSD: 116 T: 32 QT: 431 QTc: 485 Interpretive Statements SINUS RHYTHM POSSIBLE LEFT ATRIAL ENLARGEMENT [-0.1mV P-WAVE IN V1/V2] MODERATE INTRAVENTRICULAR CONDUCTION DELAY [110+ ms QRS DURATION] NONSPECIFIC T-WAVE ABNORMALITY Compared to ECG 03/31/2024 14:38:40 Intraventricular conduction delay now present T-wave abnormality now present Myocardial infarct finding no longer present Electronically Signed On 04-06-2024 14:12:50 CDT by Riccardo Burch M.D. [id number] f
--- NOTE | 2024-04-04 14:54 | XRR_ITS ---
PROCEDURE INFORMATION: Exam: XR Chest Exam date and time: 04/04/2024 3:15 PM Age: 38 years old Clinical indication: Chest pressure; Prior surgery; Surgery date: 6+ months; Surgery type: Cardiac stent x 7, lt lower lobectomy; RT dialysis cath; Patient HX: Chest pain; Dyspnea; Cough TECHNIQUE: Imaging protocol: Radiologic exam of the chest. Views: 1 view. COMPARISON: CR XR chest 1V portable [id number] 03/31/2024 12:55 PM FINDINGS: Lungs: Unremarkable. No consolidation. Pleural spaces: Unremarkable. No pleural effusion. No pneumothorax. Heart/Mediastinum: Unremarkable. No cardiomegaly. Bones/joints: Unremarkable. Right central line extends into the SVC XR/XR chest 1V portable [id number] IMPRESSION: 1. No acute findings. 2. Right central line in the SVC
--- NOTE | 2024-04-04 15:12 | ED_ITS ---
HPI - Chest Pain 2 General: Chief Complaint: Chest Pain Stated Complaint: chest pain Time Seen by Provider: 04/04/24 14:36 History of Present Illness: 38-year-old female presents to the emerg ency room with complaint of chest pain. She states it began last night radiating to her left shoulder is been kind of intermittent through the night then got worse today when she was at her usual dialysis treatment her normal run is around 3-1/2 hours. She was able to tolerate about 30 minutes before she was disconnected and brought to the ER. She is still having some mild chest discomfort. There is a no history of coronary artery disease she is not have any acute ST changes on her initial chest x-ray. She has had a little bit of a cough that is mildly productive the last few days. She is now requiring 2 L by nasal cannula. She was given aspirin and nitro and route. 3 weeks ago she had an HI. A stent was placed at that time. Associated symptoms: Deny abdominal pain, dyspnea or fever(s) Related Data Home Medications Medication Instructions Recorded Confirmed fluticasone furoate 100 1 inh inhalation DAILY PRN 09/14/23 03/31/24 mcg-vilanterol 25 mcg/dose Shortness Of Breath inhalation powder (Breo Ellipta) clonidine HCl 0.1 mg tablet See Rx Instructions .Route 11/27/23 03/31/24 .COMPLEX PRN Blood Pressure lisinopril 40 mg tablet 40 mg PO BEDTIME 11/27/23 03/31/24 escitalopram oxalate 10 mg tablet 10 mg PO DAILY 12/27/23 03/31/24 (Lexapro) gabapentin 100 mg capsule 100 mg PO TID 12/27/23 03/31/24 bumetanide 1 mg tablet 1 mg PO DAILY 02/11/24 03/31/24 Previous Rx's Medication Instructions Recorded blood-glucose meter,continuous #1 ea 06/12/22 (Dexcom G6 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) blood-glucose sensor (Dexcom G6 #3 ea 06/12/22 Sensor device) blood-glucose transmitter (Dexcom #1 ea 06/12/22 G6 Transmitter device) sevelamer carbonate 800 mg tablet 800 mg PO TID #90 tabs 09/16/23 insulin aspart U-100 100 unit/mL See Rx Instructions .Route 01/01/24 (3 mL) subcutaneous pen (Novolog .COMPLEX #15 mL FlexPen U-100 Insulin aspart) aspirin 81 mg tablet,delayed 81 mg PO QAM 30 days #30 tabs 03/28/24 release atorvastatin 40 mg tablet 40 mg PO BEDTIME 30 days #30 tabs 03/28/24 carvedilol 3.125 mg tablet 3.125 mg PO BID 30 days #60 tabs 03/28/24 clopidogrel 75 mg tablet 75 mg PO DAILY 30 days #30 tabs 03/28/24 nitroglycerin 0.4 mg sublingual 0.4 mg sublingual Q5M PRN Chest 03/28/24 tablet Pain 30 days #30 tabs Allergies Allergy/AdvReac Type Severity Reaction Status Date / Time acetaminophen AdvReac Mild ADR-Gastrointestinal Verified 04/04/24 14:48 Upset Review of Systems 2 Const: Denies: fever(s) or chills Card: Denies: chest pain Resp: Denies: dyspnea GI: Denies: abdominal pain : Denies: dysuria, urinary frequency or urinary urgency Musc: Denies: neck pain or back pain Skin/Breast: Denies: rash PFSH ED 2 PFSH: Medical History Accelerated hypertension Uncontrolled type 1 diabetes mellitus ESRD (end stage renal disease) Dialysis complication Hypoglycemia Hemodialysis catheter dysfunction Hyperkalemia Colitis End stage renal disease on dialysis COPD (chronic obstructive pulmonary disease) Diabetes mellitus Transaminitis Intractable nausea and vomiting Hyperlipidemia HTN (hypertension) CHF (congestive heart failure), NYHA class III Pulmonary hypertension CAD (coronary artery disease) Neurogenic bladder COVID-19 Tobacco dependence Drug abuse Anemia Community acquired pneumonia Esophagitis Long-term insulin use History of pancreatitis Celiac disease Recurrent UTI Non-alcoholic fatty liver disease Arnold-Chiari malformation Diabetic gastroparesis -continue Reglan Diabetic neuropathy associated with type 1 diabetes mellitus Headache, common migraine, intractable, with status migrainosus Pleural effusion 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 History of lung surgery -s/p LLL lobectomy secondary to cavitary pneumonia (2017) History of endoscopy History of cholecystectomy Family History Grandfather Diabetes Mother CAD (coronary artery disease) Diabetes Brother Acute lymphoblastic leukemia (ALL) in child Other Heart disease Hypertension Social History Smoking and tobacco/nicotine status: former use of tobacco/nicotine Quit status (tobacco/nicotine): has quit using Former quit date comment: She previously smoked <1/2 PPD, quit July 2023. Second hand smoke exposure: Yes Alcohol intake: never Substance/Drug Use: current Household members: children Housing: House Marital status: Single Current occupational status: unemployed Physical Exam 2 Const: GENERAL APPEARANCE: cooperative ORIENTATION/CONSCIOUSNESS: Yes awake, Yes oriented to person, Yes oriented to place and Yes oriented to time HENMT: COMMON NORMALS: normocephalic, atraumatic and hearing grossly normal bilaterally HEAD & SCALP: normocephalic and atraumatic Resp: COMMON NORMALS: normal respiratory effort, No retractions, No use of accessory muscles and clear to auscultation bilaterally AUSCULTATION: clear to auscultation bilaterally Cardio: COMMON NORMALS: regular rate, regular rhythm and No murmurs present (Cardio) RATE: regular rate RHYTHM: regular rhythm GI: COMMON NORMALS: Soft to palpation and No hepatosplenomegaly present A USCULTATION: Yes normoactive bowel sounds PALPATION: Yes Soft to palpation, No Tenderness to palpation present (GI), No Guarding due to palpation present (GI) and Yes No hepatosplenomegaly present Extremity: COMMON NORMALS: normal to inspection, capillary refill normal, no clubbing, cyanosis or edema, no calf tenderness and no pedal edema Neuro: SENSORIUM/ORIENTATION: Yes oriented to person, Yes oriented to place and Yes oriented to time Skin: COMMON NORMALS: no rashes or lesions noted GENERAL SKIN EXAM: no rashes or lesions noted Course 2 Vital Signs: Vital signs: Vital Signs Temperature 97.6 F 04/04/24 14:43 Pulse Rate 69 04/04/24 17:27 Respiratory Rate 17 04/04/24 17:27 Blood Pressure 163/96 04/04/24 15:30 Pulse Oximetry 100 04/04/24 17:27 Oxygen Delivery Me thod Room Air 04/04/24 17:27 Oxygen Flow Rate 2 04/04/24 14:43 MDM - Chest Pain Medical Decision Making Patient continues to have chest pain. 3 weeks ago she had a stent placed unfortunately she has had multiple visits for chest pain she did not have a lot of other significant disease at her last heart cath earlier this month. She does have significant risk factors and known heart disease. EKG is nonspecific troponin is markedly elevated but at her generalized baseline. Will admit the patient to observation discussed with hospitalist will consult cardiology and nephrology. Medical Records I reviewed the patient's medical records. Lab Data I reviewed the patient's lab results. 04/04/24 16:11 04/04/24 16:11 Laboratory Results WBC 8.07 10^3/uL (3.29-11.43) 04/04/24 16:11 RBC 3.22 10^6/uL (3.85-5.65) L 04/04/24 16:11 Hgb 9.70 g/dL (11.27-16.99) L 04/04/24 16:11 Hct 33.0 % (36-47) L 04/04/24 16:11 MCV 102.5 fl (85-98) H 04/04/24 16:11 MCH 30.1 pg (27-33) 04/04/24 16:11 MCHC 29.4 g/dL (30-55) L 04/04/24 16:11 RDW 13.5 % (12.1-15.1) 04/04/24 16:11 Plt Count 130 10^3/cmm (157-399) L 04/04/24 16:11 MPV 10.9 fL (7.4-10.4) H 04/04/24 16:11 Neut % (Auto) 69.6 % 04/04/24 16:11 Lymph % (Auto) 17.8 % 04/04/24 16:11 [place] % (Auto) 7.9 % 04/04/24 16:11 Eos % (Auto) 3.6 % 04/04/24 16:11 Baso % (Auto) 0.7 % 04/04/24 16:11 Neut # (Auto) 5.61 10^3/uL (1.8-7.7) 04/04/24 16:11 Lymph # (Auto) 1.4 10^3/uL (0.8-4.8) 04/04/24 16:11 [place] # (Auto) 0.6 10^3/uL (0.2-0.9) 04/04/24 16:11 Eos # (Auto) 0.3 10^3/uL (0.0-0.8) 04/04/24 16:11 Baso # (Auto) 0.1 10^3/uL (0.0-0.1) 04/04/24 16:11 Nucleated RBC % (auto) 0 % 04/04/24 16:11 Nucleated RBCs # 0.0 /100WBC 04/04/24 16:11 Sodium 136 mmol/L (136-145) 04/04/24 16:11 Potassium 4.0 mmol/L (3.5-5.1) 04/04/24 16:11 Chloride 100 mmol/L (98-107) 04/04/24 16:11 Carbon Dioxide 24 mmol/L (22-29) 04/04/24 16:11 Anion Gap 16.0 (5-19) 04/04/24 16:11 BUN 25 mg/dL (6-20) H 04/04/24 16:11 Creatinine 3.8 mg/dL (0.5-0.9) H 04/04/24 16:11 GFR Calculation 13.4 mL/min (90-130) L 04/04/24 16:11 Glucose 204 mg/dL (65-115) H 04/04/24 16:11 Calculated Osmolality 292 mOsm/kg (285-295) 04/04/24 16:11 Calcium 8.6 mg/dL (8.5-10.5) 04/04/24 16:11 Total Bilirubin 0.2 mg/dL (0.15-1.2) 04/04/24 16:11 AST 31 U/L (0-32) 04/04/24 16:11 ALT 38 U/L (0-33) H 04/04/24 16:11 Alkaline Phosphatase 129 U/L (35-105) H 04/04/24 16:11 Troponin T Baseline 257 ng/L (0-10) H* 04/04/24 16:11 Total Protein 6.5 g/dL (6.6-8.7) L 04/04/24 16:11 Albumin 3.8 g/dL (3.5-5.2) 04/04/24 16:11 Globulin 2.7 g/dL (1.3-4.6) 04/04/24 16:11 All radiology interpretation(s) finalized by discharge Clincial Decision Support The following clinical decision support tools were used to aid in care of the patient HEART Score -> History: Moderately Suspicious, EKG: Non-specific Changes, Age: Less than 45 yrs, Risk Factors: >/=3 Risk Factors, Troponin: Baseline Trop >45 ng/L. Resulting HEART Score: 6. 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 Misc See Rx Instructions .Route Qty: 1 0RF Rx Instructions: As directed (DME) Dexcom G6 Sensor Device See Rx Instructions .Route Qty: 3 0RF Rx Instructions: As directed (DME) Dexcom G6 Transmitter Device See Rx Instructions .Route Qty: 1 0RF Rx Instructions: As directed clopidogrel 75 mg Tablet 75 mg PO DAILY 30 Days Qty: 30 0RF carvedilol 3.125 mg Tablet 3.125 mg PO BID 30 Days Qty: 60 0RF nitroglycerin 0.4 mg Tablet, Sublingual 0.4 mg sublingual Q5M PRN (Reason: Chest Pain) 30 Days Qty: 30 0RF atorvastatin 40 mg tablet 40 mg PO BEDTIME 30 Days Qty: 30 0RF aspirin 81 mg tablet,delayed release (DR/EC) 81 mg PO QAM 30 Days Qty: 30 0RF fluticasone furoate-vilanterol [Breo Ellipta] 100-25 mcg/dose Blister With Device 1 inh INHALATION DAILY PRN (Reason: Shortness Of Breath) sevelamer carbonate 800 mg Tablet 800 mg PO TID Qty: 90 0RF clonidine HCl 0.1 mg tablet See Rx Instructions .ROUTE .COMPLEX PRN (Reason: Blood Pressure) Rx Instructions: TAKE 1 TABLET IF SYSTOLIC BLOOD PRESSURE IS GREATER THAN 160, REPEAT ONCE IF SYSTOLIC BLOOD PRESSURE IS STILL OVER 160 AFTER 1 HOUR. lisinopril 40 mg tablet 40 mg PO BEDTIME gabapentin 100 mg Capsule 100 mg PO TID escitalopram oxalate [Lexapro] 10 mg Tablet 10 mg PO DAILY insulin aspart U-100 [Novolog FlexPen U-100 Insulin] 100 unit/mL (3 mL) insulin pen See Rx Instructions .ROUTE .COMPLEX Qty: 15 0RF Rx Instructions: Inject, subcut, 3 times daily, after meals, based on sliding scale provided bumetanide 1 mg tablet 1 mg PO DAILY Rx Instructions: ON NON-DIALYSIS DAYS. Referrals: Elizabeth Dougherty FNP [Primary Care Provider] - Coding Level of Care Code ED Safety Deposit Clerk for Reji Chandler
[2024-04-04 16:16] LABS: Basophils # 0.1 10^3/uL (0.0-0.1); Basophils % 0.7 %; Eosinophils # 0.3 10^3/uL (0.0-0.8); Eosinophils % 3.6 %; Lymphocytes # 1.4 10^3/uL (0.8-4.8); Lymphocytes % 17.8 %; Mean Corpuscular HGB Conc 29.4 g/dL (30-55); Mean Corpuscular Hemoglobin 30.1 pg (27-33); Mean Corpuscular Volume 102.5 fl (85-98); Mean Platelet Volume 10.9 fL (7.4-10.4); Monocytes # 0.6 10^3/uL (0.2-0.9); Monocytes % 7.9 %; Neutrophils # 5.61 10^3/uL (1.8-7.7); Neutrophils % 69.6 %; Nucleated Red Blood Cells % 0 %; Platelet Count 130 10^3/cmm (157-399); Red Blood Count 3.22 10^6/uL (3.85-5.65); Red Cell Distribution Width 13.5 % (12.1-15.1); White Blood Count 8.07 10^3/uL (3.29-11.43)
[2024-04-04 16:42] LABS: Alanine Aminotransferase 38 U/L (0-33); Albumin Level 3.8 g/dL (3.5-5.2); Alkaline Phosphatase 129 U/L (35-105); Aspartate Amino Transferase 31 U/L (0-32); Blood Urea Nitrogen 25 mg/dL (6-20); Calcium 8.6 mg/dL (8.5-10.5); Carbon Dioxide 24 mmol/L (22-29); Chloride 100 mmol/L (98-107); Creatinine Clr Calc Pharmacy 15.9931; Globulin 2.7 g/dL (1.3-4.6); Glomerular Filtration Rate 13.4 mL/min (90-130); Glucose 204 mg/dL (65-115); Osmolality Calculated 292 mOsm/kg (285-295); Sodium 136 mmol/L (136-145); Total Bilirubin 0.2 mg/dL (0.15-1.2); Total Protein 6.5 g/dL (6.6-8.7)
[2024-04-04 16:43] LABS: Troponin(5th) Baseline 257 ng/L (0-10)
--- NOTE | 2024-04-04 17:03 | ECG_ITS ---
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 Measurements Intervals [place] Rate: 68 P: 24 MN: 172 QRS: -11 QRSD: 117 T: 5 QT: 432 QTc: 462 Interpretive Statements SINUS RHYTHM MODERATE INTRAVENTRICULAR CONDUCTION DELAY [110+ ms QRS DURATION] NONSPECIFIC T-WAVE ABNORMALITY Compared to ECG 04/04/2024 14:36:35 No significant changes Electronically Signed On 04-06-2024 14:16:59 CDT by Riccardo Burch M.D. [email or web address]
--- NOTE | 2024-04-04 17:50 | P.HP_ITS ---
Providers/Chief Complaint 2 Primary Care Provider: SUZANNE Dias Chief Complaint: chest pain History of Present Illness Donita Aguilar is a 38 year old female With a past medical history of CAD status post stenting, end-stage renal disease, history of C. difficile, recent history of NSTEMI requiring RCA stenting, type 2 dm, who presents [facility] for chest pain. Patient was seen she is alert oriented x 3, following all commands currently chest pain-free she is adamant that she was compliant with her aspirin, Plavix, statin, Coreg, she took all her medications this morning, she tells me that she was at dialysis, she was 2 hours into dialysis she started developing anterior chest discomfort, no nausea, no vomiting does report intermittent shortness of breath, no lightheaded, dizziness no diaphoresis, they had to stop dialysis early. Currently she is chest pain- free, no nausea, no vomiting, no shortness of breath, , She denies any calf pain, calf swelling, no hemoptysis, no recent travel Review of Systems 2 Const: Denies: fever(s) Card: Reports: chest pain Resp: Reports: dyspnea GI: Denies: abdominal pain Skin/Breast: Denies: rash or skin tenderness Medications/Allergies Home Medications Medication Instructions Recorded Confirmed Last Taken Type blood-glucose meter,continuous #1 ea 06/12/22 03/31/24 Unknown Rx (Dexcom G6 Feed Preparation Operator) blood-glucose sensor (Dexcom G6 #3 ea 06/12/22 03/31/24 Unknown Rx Sensor device) blood-glucose transmitter (Dexcom #1 ea 06/12/22 03/31/24 Unknown Rx G6 Transmitter device) fluticasone furoate 100 1 inh inhalation DAILY PRN 09/14/23 03/31/24 09/20/23 History mcg-vilanterol 25 mcg/dose Shortness Of Breath inhalation powder (Breo Ellipta) sevelamer carbonate 800 mg tablet 800 mg PO TID #90 tabs 09/16/23 03/31/24 03/31/24 Rx clonidine HCl 0.1 mg tablet See Rx Instructions .Route 11/27/23 03/31/24 Unknown History .COMPLEX PRN Blood Pressure lisinopril 40 mg tablet 40 mg PO BEDTIME 11/27/23 03/31/24 03/30/24 History escitalopram oxalate 10 mg tablet 10 mg PO DAILY 12/27/23 03/31/24 03/31/24 History (Lexapro) gabapentin 100 mg capsule 100 mg PO TID 12/27/23 03/31/24 03/31/24 History insulin aspart U-100 100 unit/mL See Rx Instructions .Route 01/01/24 03/31/24 03/31/24 Rx (3 mL) subcutaneous pen (Novolog .COMPLEX #15 mL FlexPen U-100 Insulin aspart) bumetanide 1 mg tablet 1 mg PO DAILY 02/11/24 03/31/24 03/30/24 History aspirin 81 mg tablet,delayed 81 mg PO QAM 30 days #30 tabs 03/28/24 03/31/24 03/31/24 Rx release atorvastatin 40 mg tablet 40 mg PO BEDTIME 30 days #30 tabs 03/28/24 03/31/24 03/30/24 Rx carvedilol 3.125 mg tablet 3.125 mg PO BID 30 days #60 tabs 03/28/24 03/31/24 03/31/24 Rx clopidogrel 75 mg tablet 75 mg PO DAILY 30 days #30 tabs 03/28/24 03/31/24 03/31/24 Rx nitroglycerin 0.4 mg sublingual 0.4 mg sublingual Q5M PRN Chest 03/28/24 03/31/24 Unknown Rx tablet Pain 30 days #30 tabs Allergies Allergy/AdvReac Type Severity Reaction Status Date / Time acetaminophen AdvReac Mild ADR-Gastrointestinal Verified 04/04/24 14:48 Upset PFSH Acute 2 PFSH: Medical History Accelerated hypertension Uncontrolled type 1 diabetes mellitus ESRD (end stage renal disease) Dialysis complication Hypoglycemia Hemodialysis catheter dysfunction Hyperkalemia Colitis End stage renal disease on dialysis COPD (chronic obstructive pulmonary disease) Diabetes mellitus Transaminitis Intractable nausea and vomiting Hyperlipidemia HTN (hypertension) CHF (congestive heart failure), NYHA class III Pulmonary hypertension CAD (coronary artery disease) Neurogenic bladder COVID-19 Tobacco dependence Drug abuse Anemia Community acquired pneumonia Esophagitis Long-term insulin use History of pancreatitis Celiac disease Recurrent UTI Non-alcoholic fatty liver disease Arnold-Chiari malformation Diabetic gastroparesis -continue Reglan Diabetic neuropathy associated with type 1 diabetes mellitus Headache, common migraine, intractable, with status migrainosus Pleural effusion 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 History of lung surgery -s/p LLL lobectomy secondary to cavitary pneumonia (2017) History of endoscopy History of cholecystectomy Family History Grandfather Diabetes Mother CAD (coronary artery disease) Diabetes Brother Acute lymphoblastic leukemia (ALL) in child Other Heart disease Hypertension Social History Smoking and tobacco/nicotine status: former use of tobacco/nicotine Quit status (tobacco/nicotine): has quit using Former quit date comment: She previously smoked <1/2 PPD, quit July 2023. Second hand smoke exposure: Yes Alcohol intake: never Substance/Drug Use: current Household members: children Housing: House Marital status: Single Current occupational status: unemployed Vitals/I&O/Wt Last Vital Signs Temp 97.6 F 04/04/24 14:43 Pulse 69 04/04/24 17:27 Resp 17 04/04/24 17:27 BP 163/96 04/04/24 15:30 Pulse Ox 100 04/04/24 17:27 O2 Del Method Room Air 04/04/24 17:27 O2 Flow Rate 2 04/04/24 14:43 Weight last 48 hrs Weight 56.699 kg Physical Exam 2 Const: COMMON NORMALS: no acute distress and patient oriented x3 HENMT: COMMON NORMALS: normocephalic HEAD & SCALP: normocephalic Eye: COMMON NORMALS: Equal, round and reactive pupils present and EOMs intact bilaterally Neck/C-Spine: COMMON NORMALS: no JVD Resp: COMMON NORMALS: normal respiratory effort, No retractions, No use of accessory muscles and clear to auscultation bilaterally AUSCULTATION: clear to auscultation bilaterally Cardio: COMMON NORMALS: no JVD, regular rate, regular rhythm, S1 normal heart sound present and S2 normal heart sound present RATE: regular rate RHYTHM: regular rhythm HEART SOUNDS: S1 normal heart sound present and S2 normal heart sound present GI: COMMON NORMALS: Normal to inspection, nondistended, normoactive bowel sounds present, Soft to palpation and non-tender Extremity: COMMON NORMALS: no calf tenderness and no pedal edema Neuro: COMMON NORMALS: patient oriented x3, CN's II-XII intact bilaterally and moves all extremities Psych: COMMON NORMALS: mental status grossly normal Data 04/04/24 16:11 04/04/24 16:11 A&P Assessment and plan (1) Chest pain: (2) Hyperlipidemia: Qualifiers: Hyperlipidemia type: mixed hyperlipidemia Qualified Code(s): E78.2 - Mixed hyperlipidemia (3) Uncontrolled type 1 diabetes mellitus: Qualifiers: Glycemic state: with hyperglycemia Qualified Code(s): E10.65 - Type 1 diabetes mellitus with hyperglycemia (4) ESRD (end stage renal disease): (5) NSTEMI (non-ST elevated myocardial infarction): Plan cath 03/2024 Conclusions 1. Successful PCI to distal RCA. Lesion was prepared with 2.5 x 20 mm AB TREK balloon, followed by deployment of CYNTHIA MDT 3.0 x 18 mm stent posted at high ROSIE of 14 mm. Stent was then post-dilated with serial dilatation of NC MDT EUPHORA 3.25 x 12 at 18 ROSIE in its entire length to ensure proper approximation. Excellent angiographic result with KORIN-3 flow was achieve echo 03/2024 CONCLUSIONS Moderate to severe left ventricular hypertrophy. LV systolic function is normal with EF 55 to 60%. Trace mitral regurgitation. Compared to prior echocardiogram from 01/2024, no significant changes are seen. Plan ? Serial EKGs, serial troponins, telemetry monitoring ? Monitor chest pain ? Patient already has taken her medications this morning ? Continue aspirin, statin, Plavix, Coreg ? Started on a heparin drip ? Monitor troponin trend ? Will consider long-acting nitro or Ranexa for persistent chest pain ? Based on troponin trend will consider consulting with cardiology given her recent history of cardiac cath, and stenting ? Full code ? Heparin drip for DVT prophylaxis End-stage renal disease ? Missed dialysis for about 2 hours, nephrology consulted by ER plan on dialysis Attestations 2 Medical Necessity Statement*: Patient requires hospitalization, inpatient, greater than 2 midnights, for chest pain, NSTEMI Diagnoses Chest pain R07.9 Mixed hyperlipidemia E78.2 Hyperlipidemia type: mixed hyperlipidemia Uncontrolled type 1 diabetes mellitus with hyperglycemia E10.65 Glycemic state: with hyperglycemia ESRD (end stage renal disease) N18.6 NSTEMI (non-ST elevated myocardial infarction) I21.4
[2024-04-04 18:16] LABS: Troponin 5 2HR Delta 7.5 ABS# (0-10)
[2024-04-04 18:20] LABS: Troponin 5 2HR 264.5 ng/L (0-10)
[2024-04-04] MEDS: nitroglycerin 1 gm/inch oint Pkt 1 INCH TOPICAL (18:30)
[2024-04-04 18:32] LABS: Procalcitonin 0.22 ng/mL (0-0.5)
--- NOTE | 2024-04-04 19:23 | P.CONIM_ITS ---
Providers/Reason For Consult 2 Consulting Physician/Specialty*: kommana/Nephrology Reason for Consult*: ESRD Attending Physician: Shola Carrera MD Primary Care Provider: SUZANNE Dias History of Present Illness History of Present Illness Donita Aguilar is a 38 year old female Patient is a 38-year-old female with past medical history of coronary artery disease status post times, end-stage renal disease on dialysis , C. difficile, recent admissions for chest pain and NSTEMI and most recently underwent RCA stenting presented to the emergency department due to chest pain while she was on dialysis today. No nausea vomiting no lightheadedness. In the emergency department vital signs are stable, lab data significant for hemoglobin of 9.7. Potassium was 4.0. Review of Systems 2 Narrative: Negative Medications/Allergies Home Medications Medication Instructions Recorded Confirmed Last Taken Type blood-glucose meter,continuous #1 ea 06/12/22 03/31/24 Unknown Rx (Dexcom G6 Trench Pipe Layer Helper) blood-glucose sensor (Dexcom G6 #3 ea 06/12/22 03/31/24 Unknown Rx Sensor device) blood-glucose transmitter (Dexcom #1 ea 06/12/22 03/31/24 Unknown Rx G6 Transmitter device) fluticasone furoate 100 1 inh inhalation DAILY PRN 09/14/23 03/31/24 09/20/23 History mcg-vilanterol 25 mcg/dose Shortness Of Breath inhalation powder (Breo Ellipta) sevelamer carbonate 800 mg tablet 800 mg PO TID #90 tabs 09/16/23 03/31/24 03/31/24 Rx clonidine HCl 0.1 mg tablet See Rx Instructions .Route 11/27/23 03/31/24 Unknown History .COMPLEX PRN Blood Pressure lisinopril 40 mg tablet 40 mg PO BEDTIME 11/27/23 03/31/24 03/30/24 History escitalopram oxalate 10 mg tablet 10 mg PO DAILY 12/27/23 03/31/24 03/31/24 History (Lexapro) gabapentin 100 mg capsule 100 mg PO TID 12/27/23 03/31/24 03/31/24 History insulin aspart U-100 100 unit/mL See Rx Instructions .Route 01/01/24 03/31/24 03/31/24 Rx (3 mL) subcutaneous pen (Novolog .COMPLEX #15 mL FlexPen U-100 Insulin aspart) gisellmetanide 1 mg tablet 1 mg PO DAILY 02/11/24 03/31/24 03/30/24 History aspirin 81 mg tablet,delayed 81 mg PO QAM 30 days #30 tabs 03/28/24 03/31/24 03/31/24 Rx release atorvastatin 40 mg tablet 40 mg PO BEDTIME 30 days #30 tabs 03/28/24 03/31/24 03/30/24 Rx carvedilol 3.125 mg tablet 3.125 mg PO BID 30 days #60 tabs 03/28/24 03/31/24 03/31/24 Rx clopidogrel 75 mg tablet 75 mg PO DAILY 30 days #30 tabs 03/28/24 03/31/24 03/31/24 Rx nitroglycerin 0.4 mg sublingual 0.4 mg sublingual Q5M PRN Chest 03/28/24 03/31/24 Unknown Rx tablet Pain 30 days #30 tabs Allergies Allergy/AdvReac Type Severity Reaction Status Date / Time acetaminophen AdvReac Mild ADR-Gastrointestinal Verified 04/04/24 14:48 Upset PFSH Acute 2 PFSH: Medical History Accelerated hypertension Uncontrolled type 1 diabetes mellitus ESRD (end stage renal disease) Dialysis complication Hypoglycemia Hemodialysis catheter dysfunction Hyperkalemia Colitis End stage renal disease on dialysis COPD (chronic obstructive pulmonary disease) Diabetes mellitus Transaminitis Intractable nausea and vomiting Hyperlipidemia HTN (hypertension) CHF (congestive heart failure), NYHA class III Pulmonary hypertension CAD (coronary artery disease) Neurogenic bladder COVID-19 Tobacco dependence Drug abuse Anemia Community acquired pneumonia Esophagitis Long-term insulin use History of pancreatitis Celiac disease Recurrent UTI Non-alcoholic fatty liver disease Arnold-Chiari malformation Diabetic gastroparesis -continue Reglan Diabetic neuropathy associated with type 1 diabetes mellitus Headache, common migraine, intractable, with status migrainosus Pleural effusion 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 History of lung surgery -s/p LLL lobectomy secondary to cavitary pneumonia (2016) History of endoscopy History of cholecystectomy Family History Grandfather Diabetes Mother CAD (coronary artery disease) Diabetes Brother Acute lymphoblastic leukemia (ALL) in child Other Heart disease Hypertension Social History Smoking and tobacco/nicotine status: former use of tobacco/nicotine Quit status (tobacco/nicotine): has quit using Former quit date comment: She previously smoked <1/2 PPD, quit July 2023. Second hand smoke exposure: Yes Alcohol intake: never Substance/Drug Use: current Household members: children Housing: House Marital status: Single Current occupational status: unemployed Vitals/I&O/Wt Last Vital Signs Temp 97.6 F 04/04/24 14:43 Pulse 68 04/04/24 18:32 Resp 17 04/04/24 17:27 BP 179/104 04/04/24 18:32 Pulse Ox 100 04/04/24 18:32 O2 Del Method Room Air 04/04/24 17:27 O2 Flow Rate 2 04/04/24 14:43 Weight last 48 hrs Weight 56.699 kg Physical Exam 2 Narrative: Patient is awake alert no distress HEENT S1-S2 regular rate and rhythm per report Lungs clear per report No pedal edema Data 04/04/24 16:11 04/04/24 16:11 A&P Assessment and plan (1) ESRD (end stage renal disease): Plan 1. End-stage renal disease: No acute indication for HD today, potassium 4.0, no volume overload, will reassess for HD tomorrow 2. Hypertension: Resume home meds 3. Chest pain with history of coronary artery disease and multiple stents,, trending troponins, patient recently underwent cardiac cath. 4. Anemia: MAX with HD, monitor Patient evaluated using audiovisual cart. Time spent 40 minutes. Coding Level of Care Code Acute Code for Chg Fwd Diagnoses ESRD (end stage renal disease) N18.6
[2024-04-04 19:30] LABS: Chol HDL Ratio 1.65 mg/dL (0.0-4.40); Cholesterol 99 mg/dL (0-200); HDL Cholesterol 60 mg/dL (60-100); LDL Cholesterol Calculated 16 mg/dL (50-129); LDL HDL Ratio 0.27 RATIO (0.00-3.22); Thyroid Stimulating Hormone 4.24 uIU/mL (0.27-4.20); Triglycerides 117 mg/dL (0-150)
[2024-04-04 19:42] LABS: NT Pro B Type Natriuretic Pept > 70000 pg/mL (0-125)
[2024-04-04] MEDS: heparin drip 25,000 UNIT/500 ML PREMIX 16 UNIT IV (19:53)
[2024-04-04] MEDS: heparin 5,000 unit/mL INJ 1 mL IVP (19:54)
[2024-04-04] MEDS: morphine 4 mg/mL SDV 1 mL 2 MG IVP (19:54)
[2024-04-04] MEDS: carvedilol 3.125 mg Tablet PO (19:55)
[2024-04-04] MEDS: nitroglycerin drip 50 MG/250 ML PREMIX IV (19:55)
[2024-04-04] MEDS: pantoprazole 40 mg SDV IVP (19:58)
[2024-04-04] MEDS: lisinopril 20 mg Tablet 40 MG PO (20:05)
[2024-04-04] MEDS: atorvastatin 40 mg Tablet PO (20:05)
[2024-04-04 20:36] LABS: Glucose Point of Care 183 mg/dL (70-110)
--- NOTE | 2024-04-04 20:55 | ECG_ITS ---
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 Measurements Intervals [place] Rate: 68 P: 44 MN: 200 QRS: -18 QRSD: 112 T: 63 QT: 437 QTc: 468 Interpretive Statements SINUS RHYTHM MODERATE INTRAVENTRICULAR CONDUCTION DELAY [110+ ms QRS DURATION] NONSPECIFIC T-WAVE ABNORMALITY Compared to ECG 04/04/2024 17:03:28 No significant changes Electronically Signed On 04-06-2024 14:16:37 CDT by Riccardo Burch M.D. [email or web address]
[2024-04-04 22:44] LABS: Troponin 5 6HR Delta 11.6 ng/L (0-12)
[2024-04-04 22:48] LABS: Troponin 5 6HR 268.6 ng/L (0-10)
[2024-04-05] VITALS (20 sets, daily range): BP systolic 102–141; BP diastolic 50–93; PULSE 61–69; RESP 12–20; TEMP 36.4–36.8; O2SAT 97–100
[2024-04-05] MEDS: morphine 4 mg/mL SDV 1 mL 2 MG IVP ×4 (01:59→20:14)
[2024-04-05 02:01] LABS: Basophils # 0.1 10^3/uL (0.0-0.1); Basophils % 0.9 %; Eosinophils # 0.4 10^3/uL (0.0-0.8); Eosinophils % 5.1 %; Hematocrit 28.4 % (36-47); Lymphocytes # 1.8 10^3/uL (0.8-4.8); Lymphocytes % 22.4 %; Mean Corpuscular Volume 96.9 fl (85-98); Mean Platelet Volume 10.7 fL (7.4-10.4); Monocytes # 0.6 10^3/uL (0.2-0.9); Monocytes % 7.7 %; Neutrophils # 4.99 10^3/uL (1.8-7.7); Neutrophils % 63.8 %; Nucleated Red Blood Cells % 0 %; Platelet Count 146 10^3/cmm (157-399); Red Blood Count 2.93 10^6/uL (3.85-5.65); Red Cell Distribution Width 13.5 % (12.1-15.1); White Blood Count 7.82 10^3/uL (3.29-11.43)
[2024-04-05 02:18] LABS: Anion Gap 16.2 (5-19); Blood Urea Nitrogen 31 mg/dL (6-20); Calcium 8.1 mg/dL (8.5-10.5); Carbon Dioxide 23 mmol/L (22-29); Chloride 102 mmol/L (98-107); Creatinine Clr Calc Pharmacy 13.2826; Glomerular Filtration Rate 10.5 mL/min (90-130); Glucose 320 mg/dL (65-115); Magnesium 1.9 mg/dL (1.7-2.3); Osmolality Calculated 303 mOsm/kg (285-295); Potassium 4.2 mmol/L (3.5-5.1); Sodium 137 mmol/L (136-145)
[2024-04-05 03:31] LABS: Adenovirus Not Detected (NOT DETECT); Chlamydia Pneumoniae Not Detected (NOT DETECT); Coronavirus 229E,HKU1,NL63,OC4 Not Detected (NOT DETECT); Human Metapneumovirus Not Detected (NOT DETECT); Human Rhinovirus/Enterovirus Not Detected (NOT DETECT); Influenza A Not Detected (NOT DETECT); Influenza A H1 Not Detected (NOT DETECT); Influenza A H1-2009 Not Detected (NOT DETECT); Influenza A H3 Not Detected (NOT DETECT); Influenza B Not Detected (NOT DETECT); Mycoplasma Pneumoniae Not Detected (NOT DETECT); Parainfluenza Virus Type 1 Not Detected (NOT DETECT); Parainfluenza Virus Type 2 Not Detected (NOT DETECT); Parainfluenza Virus Type 3 Not Detected (NOT DETECT); Parainfluenza Virus Type 4 Not Detected (NOT DETECT); Respiratory Syncytial Virus A Not Detected (NOT DETECT); Respiratory Syncytial Virus B Not Detected (NOT DETECT); SARS-COV-2 Not Detected (NOT DETECT)
[2024-04-05 06:48] LABS: Glucose Point of Care 248 mg/dL (70-110)
--- NOTE | 2024-04-05 06:49 | PM.PN ---
Subjective Subjective: Patient was seen and examined. She is complaining of chest pain. Has nausea. No headaches no hearing nursing problems thirsty. States her sugars are not well-controlled. She has no diarrhea no hearing nursing problems rest review of systems within normal limits. Medications: Reviewed: Yes Medication Review Details: Current Medications Acetaminophen (Acetaminophen 325 Mg Tablet) 650 mg PO Q6H PRN PRN Reason: Mild/Mod Pain Or Temp >/= 101 Albuterol/Ipratropium (Ipratropium-Albuterol 3 Ml Neb) 3 ml INHALATION Q4H PRN PRN Reason: SHORTNESS OF BREATH Aspirin (Aspirin 81 Mg Ec Tablet) 81 mg PO DAILY [facility] Atorvastatin Calcium (Atorvastatin 40 Mg Tablet) 40 mg PO BEDTIME [facility] Last Admin: 04/04/24 20:05 Dose: 40 mg Bumetanide (Bumetanide 1 Mg Tablet) 1 mg PO DAILY SHAY Carvedilol (Carvedilol 3.125 Mg Tablet) 3.125 mg PO BIDWM [facility] Last Admin: 04/04/24 19:55 Dose: 3.125 mg Clopidogrel Bisulfate (Clopidogrel 75 Mg Tablet) 75 mg PO DAILY [facility] Escitalopram Oxalate (Escitalopram 10 Mg Tablet) 10 mg PO DAILY [facility] Glucagon (Glucagon 1 Mg/Ml Kit 1 Ml) 1 mg IM ONCE PRN; Protocol PRN Reason: Adult Acute Hypoglycemia Nursing Prot. Heparin Sodium (Porcine) (Heparin 5,000 Unit/Ml Inj 1 Ml) 0 unit IVP PRN PRN; Protocol PRN Reason: Heparin Weight Based Protocol -Subsequent Bolus Heparin Sodium/Sodium Chloride (Heparin Drip) 25,000 unit in 500 mls @ 0 mls/hr IV CONT SHAY; Protocol Last Titration: 04/05/24 02:42 Dose: 14.99 unit/kg/hr, 17 mls/hr Dextrose (D5w) 500 mls @ 0 mls/hr IV ONCE PRN; Protocol PRN Reason: Adult Acute Hypoglycemia Prot Dextrose (D10w) 125 mls @ 750 mls/hr IV PRN PRN; Protocol PRN Reason: Adult Acute Hypoglycemia Nursing Protocol Dextrose (D10w) 250 mls @ 1,000 mls/hr IV PRN PRN; Protocol PRN Reason: Adult Acute Hypoglycemia Nursing Protocol Nitroglycerin/Dextrose (Nitroglycerin Drip) 50 mg in 250 mls @ 0 mls/hr IV .Q0M SHAY; Protocol Last Titration: 04/05/24 02:00 Dose: 40 mcg/min, 12 mls/hr Insulin Human Lispro (Insulin Lispro 100 Unit/1 Ml) 0 unit SUBCUT TIDWM [facility]; Protocol Lisinopril (Lisinopril 20 Mg Tablet) 40 mg PO BEDTIME SHAY Last Admin: 04/04/24 20:05 Dose: 40 mg Morphine Sulfate (Morphine 4 Mg/Ml Sdv 1 Ml) 2 mg IVP Q4H PRN PRN Reason: SEVERE PAIN Last Admin: 04/05/24 01:59 Dose: 2 mg Pantoprazole Sodium (Pantoprazole 40 Mg Sdv) 40 mg IVP BEDTIME SHAY Last Admin: 04/04/24 19:58 Dose: 40 mg Sevelamer Carbonate (Sevelamer 800 Mg Tablet) 800 mg PO TIDWM [facility] Vitals/I&O/Wt Last Vital Signs Temp 98.2 F 04/05/24 04:00 Pulse 64 04/05/24 06:00 Resp 12 04/05/24 04:00 BP 127/71 04/05/24 04:00 Pulse Ox 97 04/05/24 04:00 O2 Del Method Room Air 04/05/24 04:00 O2 Flow Rate 2 04/04/24 23:40 04/04/24 04/04/24 04/05/24 14:59 22:59 06:59 Intake Total 317.65 / 317.65 509.917 / 827.567 Balance 317.65 / 317.65 509.917 / 827.567 Weight last 48 hrs Weight 62 kg Weight 60.1 kg Weight 56.699 kg Weight 56.699 kg Physical Exam Narrative: Uncomfortable on a nitro drip and heparin drip. Vital signs are stable. She is oxygenating well on nasal cannula oxygen. HEENT normocephalic atraumatic. Neck is supple. Lungs basal dullness. Heart regular S1-S2. Abdomen is soft positive bowel sounds. Extremities 1+ edema. Right anterior chest wall permacath. Neuro awake alert oriented x 3 Data 04/05/24 01:51 04/05/24 01:51 A&P Assessment and plan (1) ESRD (end stage renal disease): 38-year-old lady with a past medical history of CAD status post stenting, end-stage renal disease, history of C. difficile, recent history of NSTEMI requiring RCA stenting, type 2 dm. 1. Chest pain as per cardiology 2. ESRD dialysis today or tomorrow as per nurses schedule. 3. Diabetic control per hospitalist. 4. Blood pressure well-controlled monitor off of nitro drip. Try to decrease weight on dialysis. 5. Anemia check iron studies. Patient was seen and examined with the nurse using A/V equipment for telehealth visit. The patient consents to telehealth and dialysis. Plan As above. Please do not get Neupogen unless we are certain she is not having an acute MS Attestations Medical Necessity Statement*: Chest pain, history of CAD, ESRD, diabetes Time Spent in Patient Care: 16 - 35 minutes (>than 50% of time spent in counselling and/or direct pt care on unit). Coding Level of Care Code Acute Code for Chg Fwd Diagnoses ESRD (end stage renal disease) N18.6
[2024-04-05 07:58] LABS: Hepatitis B Surface AB 8.3 (11.5-1000); Hepatitis B Surface Antigen Non-Reactive (Nonreactive); Hepatitis C Virus Antibody Non-Reactive (Nonreactive)
--- NOTE | 2024-04-05 08:10 | USCV_ITS ---
Donita Aguilar Age: 38 Gender: F : 1985 Exam Date: 04/05/2024 15:00 Ordering Phys: Shola Carrera MD Technologist: Elian Boyer Exam Location: [facility] [place] Indication: cva BP: 122 / 74 HR: Rhythm: Sinus Technical Quality: Adequate MEASUREMENTS (Male / Female) Normal Values 2D ECHO LV Diastolic Diameter PLAX 4.4 cm 4.2 - 5.9 / 3.9 - 5.3 cm IVS Diastolic Thickness 1.3 cm 0.6 - 1.0 / 0.6 - 0.9 cm IVS Systolic Thickness 1.8 cm LVPW Diastolic Thickness 1.9 cm 0.6 - 1.0 / 0.6 - 0.9 cm LVPW Systolic Thickness 1.6 cm LVOT Diameter 2.1 cm LV Ejection Fraction 2D Teich 51.7 % LV Ejection Fraction MOD 4C 61.4 % LV Ejection Fraction MOD 2C 67.2 % LV Ejection Fraction 2C AL 66.1 % LA Diameter 3.7 cm RA Systolic Volume 4C AL 40.8 ml RA Systolic Volume 4C MOD 42.1 ml LA Sys Volume AL 76.3 cm cubed LA Sys Volume Index AL 46.7 cm cubed/m squared IVC Diameter 1.6 cm M-MODE LA Ao Ratio MM 1.7 AV Cusp Separation MM 1.4 cm FINDINGS Left Ventricle Right Ventricle Right Atrium Left Atrium Mitral Valve Aortic Valve Tricuspid Valve Pulmonic Valve Pericardium Aorta IVC CONCLUSIONS Limited echocardiogram performed to assess LV systolic function. LV systolic function is normal with EF of 60 to 65%. No regional wall motion abnormalities are seen. RV function is normal. Riccardo Burch MD (Electronically Signed) Final Date: 05 April 2024 16:19 S
--- NOTE | 2024-04-05 09:03 | P.CONIM_ITS ---
Providers/Reason For Consult 2 Consulting Physician/Specialty*: Riccardo Burch MD/ Cardiology Reason for Consult*: Chest pain Requesting Physician: Dr Jones Attending Physician: Shola Carrera MD Primary Care Provider: SUZANNE Dias History of Present Illness History of Present Illness Donita Aguilar is a 38 year old female with past medical history of coronary artery disease with prior stents, end-stage renal disease who presented to hospital with chest discomfort starting during dialysis session. Patient has multiple admissions to the hospital with chest discomfort. On last admission she had occluded RCA stents with collaterals from LAD. Given chest pain symptoms , patient's artery was revascularized and another stent was placed. Since then, this is her second ER visit. Troponins are chronically elevated at 257 and no significant uptrend seen. EKG shows sinus rhythm with non-specific ST T wave changes. Review of Systems 2 Const: Denies: fever(s) Card: Reports: chest pain Resp: Reports: dyspnea GI: Denies: abdominal pain Skin/Breast: Denies: rash or skin tenderness Medications/Allergies Home Medications Medication Instructions Recorded Confirmed Last Taken Type blood-glucose meter,continuous #1 ea 06/12/22 03/31/24 Unknown Rx (Dexcom G6 Gummed Tape Press Operator) blood-glucose sensor (Dexcom G6 #3 ea 06/12/22 03/31/24 Unknown Rx Sensor device) blood-glucose transmitter (Dexcom #1 ea 06/12/22 03/31/24 Unknown Rx G6 Transmitter device) fluticasone furoate 100 1 inh inhalation DAILY PRN 09/14/23 03/31/24 09/20/23 History mcg-vilanterol 25 mcg/dose Shortness Of Breath inhalation powder (Breo Ellipta) sevelamer carbonate 800 mg tablet 800 mg PO TID #90 tabs 09/16/23 03/31/24 03/31/24 Rx clonidine HCl 0.1 mg tablet See Rx Instructions .Route 11/27/23 03/31/24 Unknown History .COMPLEX PRN Blood Pressure lisinopril 40 mg tablet 40 mg PO BEDTIME 11/27/23 03/31/24 03/30/24 History escitalopram oxalate 10 mg tablet 10 mg PO DAILY 12/27/23 03/31/24 03/31/24 History (Lexapro) gabapentin 100 mg capsule 100 mg PO TID 0703/31/24 03/31/24 History insulin aspart U-100 100 unit/mL See Rx Instructions .Route 01/01/24 03/31/24 03/31/24 Rx (3 mL) subcutaneous pen (Novolog .COMPLEX #15 mL FlexPen U-100 Insulin aspart) bumetanide 1 mg tablet 1 mg PO DAILY 02/11/24 03/31/24 03/30/24 History aspirin 81 mg tablet,delayed 81 mg PO QAM 30 days #30 tabs 03/28/24 03/31/24 03/31/24 Rx release atorvastatin 40 mg tablet 40 mg PO BEDTIME 30 days #30 tabs 03/28/24 03/31/24 03/30/24 Rx carvedilol 3.125 mg tablet 3.125 mg PO BID 30 days #60 tabs 03/28/24 03/31/24 03/31/24 Rx clopidogrel 75 mg tablet 75 mg PO DAILY 30 days #30 tabs 03/28/24 03/31/24 03/31/24 Rx nitroglycerin 0.4 mg sublingual 0.4 mg sublingual Q5M PRN Chest 03/28/24 03/31/24 Unknown Rx tablet Pain 30 days #30 tabs Allergies Allergy/AdvReac Type Severity Reaction Status Date / Time acetaminophen AdvReac Mild ADR-Gastrointestinal Verified 04/04/24 14:48 Upset Current Medications Generic Name Dose Route Start Last Admin Trade Name Freq PRN Reason Stop Dose Admin Atorvastatin Calcium 40 mg 04/04/24 21:00 04/04/24 20:05 Atorvastatin 40 Mg Tablet PO 40 mg BEDTIME SHAY Administration Carvedilol 3.125 mg 04/04/24 20:00 04/04/24 19:55 Carvedilol 3.125 Mg Tablet PO 3.125 mg BIDWM SHAY Administration Heparin Sodium/Sodium Chloride 25,000 unit in 500 mls @ 0 mls/hr 04/04/24 18:49 04/05/24 02:42 Heparin Drip IV 14.99 unit/kg/hr CONT SHAY 17 mls/hr Titration Protocol Per Protocol Nitroglycerin/Dextrose 50 mg in 250 mls @ 0 mls/hr 04/04/24 19:30 04/05/24 02:00 Nitroglycerin Drip IV 40 mcg/min .Q0M SHAY 12 mls/hr Titration Protocol Per Protocol Lisinopril 40 mg 04/04/24 21:00 04/04/24 20:05 Lisinopril 20 Mg Tablet PO 40 mg BEDTIME SHAY Administration Morphine Sulfate 2 mg 04/04/24 18:49 04/05/24 01:59 Morphine 4 Mg/Ml Sdv 1 Ml IVP 2 mg Q4H PRN Administration SEVERE PAIN Pantoprazole Sodium 40 mg 04/04/24 21:00 04/04/24 19:58 Pantoprazole 40 Mg Sdv IVP 40 mg BEDTIME SHAY Administration PFSH Acute 2 PFSH: Medical History Accelerated hypertension Uncontrolled type 1 diabetes mellitus ESRD (end stage renal disease) Dialysis complication Hypoglycemia Hemodialysis catheter dysfunction Hyperkalemia Colitis End stage renal disease on dialysis COPD (chronic obstructive pulmonary disease) Diabetes mellitus Transaminitis Intractable nausea and vomiting Hyperlipidemia HTN (hypertension) CHF (congestive heart failure), NYHA class III Pulmonary hypertension CAD (coronary artery disease) Neurogenic bladder COVID-19 Tobacco dependence Drug abuse Anemia Community acquired pneumonia Esophagitis Long-term insulin use History of pancreatitis Celiac disease Recurrent UTI Non-alcoholic fatty liver disease Arnold-Chiari malformation Diabetic gastroparesis -continue Reglan Diabetic neuropathy associated with type 1 diabetes mellitus Headache, common migraine, intractable, with status migrainosus Pleural effusion 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 History of lung surgery -s/p LLL lobectomy secondary to cavitary pneumonia (2017) History of endoscopy History of cholecystectomy Family History Grandfather Diabetes Mother CAD (coronary artery disease) Diabetes Brother Acute lymphoblastic leukemia (ALL) in child Other Heart disease Hypertension Social History Smoking and tobacco/nicotine status: former use of tobacco/nicotine Quit status (tobacco/nicotine): has quit using Former quit date comment: She previously smoked <1/2 PPD, quit July 2023. Second hand smoke exposure: Yes Alcohol intake: never Substance/Drug Use: current Household members: children Housing: House Marital status: Single Current occupational status: unemployed Vitals/I&O/Wt Last Vital Signs Temp 98.3 F 04/05/24 07:14 Pulse 64 04/05/24 08:29 Resp 18 04/05/24 08:29 BP 132/72 04/05/24 07:14 Pulse Ox 99 04/05/24 08:29 O2 Del Method Nasal Cannula 04/05/24 08:29 O2 Flow Rate 2 04/05/24 08:29 04/04/24 04/05/24 04/05/24 22:59 06:59 14:59 Intake Total 317.65 / 317.65 509.917 / 827.567 Balance 317.65 / 317.65 509.917 / 827.567 Weight last 48 hrs Weight 136 lb 10.986 oz Weight 132 lb 7.965 oz Weight 125 lb Weight 125 lb Physical Exam 2 Narrative: GENERAL: Patient is alert, awake and oriented x3. [] NECK: No jugular vein distension. [] HEENT: No cyanosis. No icterus. No pallor. [] HEART: Regular S1 and S2. No murmur, rub or gallop. [] LUNGS: Clear to auscultate bilaterally. [] CENTRAL NERVOUS SYSTEM: Grossly nonfocal. [] EXTREMITIES: Lower extremities with 1+ edema bilaterally. Data 04/05/24 01:51 04/05/24 01:51 A&P Assessment and plan (1) Hyperlipidemia: Qualifiers: Hyperlipidemia type: mixed hyperlipidemia Qualified Code(s): E78.2 - Mixed hyperlipidemia (2) Chest pain: (3) CAD (coronary artery disease): (4) Atherosclerotic heart disease of [place] coronary artery with other forms of angina pectoris: (5) ESRD (end stage renal disease): Plan Patient has atypical chest pain. Has significant CAD history. Troponins have not trended up. EKG is not showing acute ST-T wave changes. We will obtain limited echocardiogram. If EF is unchanged from before, we will continue medical therapy. Can start Imdur. Continue dual antiplatelet therapy with aspirin and plavix High intensity statin therapy Thank you for involving us with care of this patient. We will continue to follow. Please call with question. Consult Attestations 2 Medical Necessity Statement: Care expected to cross 2 midnights. Coding Level of Care Code Acute Code for Chg Fwd Diagnoses Mixed hyperlipidemia E78.2 Hyperlipidemia type: mixed hyperlipidemia Chest pain R07.9 CAD (coronary artery disease) I25.10 Atherosclerotic heart disease of [place] coronary artery with other forms of angina pectoris I25.118 ESRD (end stage renal disease) N18.6
[2024-04-05] MEDS: clopidogrel 75 mg Tablet PO (09:12)
[2024-04-05] MEDS: aspirin 81 mg EC Tablet PO (09:13)
[2024-04-05] MEDS: escitalopram 10 mg Tablet PO (09:13)
[2024-04-05] MEDS: insulin lispro 100 unit/1 mL SUBCUT ×2 (09:13→17:44)
[2024-04-05] MEDS: sevelamer 800 mg Tablet PO ×2 (09:13→17:43)
[2024-04-05] MEDS: carvedilol 3.125 mg Tablet PO ×2 (09:14→17:43)
[2024-04-05] MEDS: bumetanide 1 mg Tablet PO (09:14)
[2024-04-05 09:56] LABS: Partial Thromboplastin Time 46.8 SECONDS (23.9-36.7)
[2024-04-05 10:03] LABS: Troponin T (5th) Once 255 ng/L (0-10)
--- NOTE | 2024-04-05 11:03 | P.PN_ITS ---
Subjective 2 Subjective: Patient was seen this morning, she is alert oriented x 3, following all commands she did have episodes of chest pain overnight was placed on nitroglycerin drip, currently chest pain has improved but persists to some degree we discussed switching her over to long-acting Imdur, she is agreeable will continue to monitor her continue heparin drip monitor troponin trend, cardiac echo, spoke to cardiology, will consult Vitals/I&O/Wt Last Vital Signs Temp 98.3 F 04/05/24 07:14 Pulse 64 04/05/24 08:29 Resp 15 04/05/24 11:00 BP 132/72 04/05/24 07:14 Pulse Ox 100 04/05/24 11:00 O2 Del Method Nasal Cannula 04/05/24 08:29 O2 Flow Rate 2 04/05/24 08:29 04/04/24 04/05/24 04/05/24 22:59 06:59 14:59 Intake Total 317.65 / 317.65 509.917 / 827.567 240 / 240 Balance 317.65 / 317.65 509.917 / 827.567 240 / 240 Weight last 48 hrs Weight 62 kg Weight 60.1 kg Weight 56.699 kg Weight 56.699 kg Physical Exam 2 Const: COMMON NORMALS: no acute distress and patient oriented x3 Resp: COMMON NORMALS: normal respiratory effort, No retractions, No use of accessory muscles and clear to auscultation bilaterally AUSCULTATION: clear to auscultation bilaterally Cardio: COMMON NORMALS: regular rate, regular rhythm, S1 normal heart sound present and S2 normal heart sound present RATE: regular rate RHYTHM: r egular rhythm HEART SOUNDS: S1 normal heart sound present and S2 normal heart sound present GI: COMMON NORMALS: Normal to inspection, nondistended, normoactive bowel sounds present and non-tender Extremity: COMMON NORMALS: no pedal edema Neuro: COMMON NORMALS: patient oriented x3 Psych: COMMON NORMALS: mental status grossly normal Data 04/05/24 01:51 04/05/24 01:51 A&P Assessment and plan (1) Chest pain: (2) Hyperlipidemia: Qualifiers: Hyperlipidemia type: mixed hyperlipidemia Qualified Code(s): E78.2 - Mixed hyperlipidemia (3) Uncontrolled type 1 diabetes mellitus: Qualifiers: Glycemic state: with hyperglycemia Qualified Code(s): E10.65 - Type 1 diabetes mellitus with hyperglycemia (4) ESRD (end stage renal disease): (5) NSTEMI (non-ST elevated myocardial infarction): Plan cath 03/2024 Conclusions 1. Successful PCI to distal RCA. Lesion was prepared with 2.5 x 20 mm AB TREK balloon, followed by deployment of CYNTHIA T 3.0 x 18 mm stent posted at high ROSIE of 14 mm. Stent was then post-dilated with serial dilatation of NC T EUPHORA 3.25 x 12 at 18 ROSIE in its entire length to ensure proper approximation. Excellent angiographic result with KORIN-3 flow was achieve echo 03/2024 CONCLUSIONS Moderate to severe left ventricular hypertrophy. LV systolic function is normal with EF 55 to 60%. Trace mitral regurgitation. Compared to prior echocardiogram from 01/2024, no significant changes are seen. Plan ? Serial EKGs, serial troponins, telemetry monitoring ? Monitor chest pain ? Patient already has taken her medications this morning ? Continue aspirin, statin, Plavix, Coreg ? Started on a heparin drip, continue for 48 hours given recent history of stent placement ? Monitor troponin trend, order this morning ? Currently on a nitro drip, switch to Imdur ? Cardiology consulted ? Full code ? Heparin drip for DVT prophylaxis End-stage renal disease ? BNP over 70,000, does not look fluid overloaded , no significant shortness of breath complaints ? Nephrology consulted Attestations 2 Medical Necessity Statement*: Patient requires hospitalization, inpatient, greater than 2 midnights, for NSTEMI recent history of cardiac stenting, chest pain Diagnoses Chest pain R07.9 Mixed hyperlipidemia E78.2 Hyperlipidemia type: mixed hyperlipidemia Uncontrolled type 1 diabetes mellitus with hyperglycemia E10.65 Glycemic state: with hyperglycemia ESRD (end stage renal disease) N18.6 NSTEMI (non-ST elevated myocardial infarction) I21.4
[2024-04-05] MEDS: isosorbide mononitrate ER 30 mg Tablet PO (11:32)
[2024-04-05] MEDS: heparin 5,000 unit/mL INJ 1 mL IVP ×2 (11:55→18:23)
[2024-04-05 12:15] LABS: Glucose Point of Care 104 mg/dL (70-110)
--- NOTE | 2024-04-05 15:29 | ECG_ITS ---
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 Measurements Intervals [place] Rate: 66 P: 59 [place]: 195 QRS: -11 QRSD: 107 T: -28 QT: 435 QTc: 456 Interpretive Statements SINUS RHYTHM POSSIBLE INFERIOR MYOCARDIAL INFARCTION , OF INDETERMINATE AGE [30 ms Q WAVE IN II/aVF] Compared to ECG 04/04/2024 21:33:21 Myocardial infarct finding now present Intraventricular conduction delay no longer present T-wave abnormality no longer present Electronically Signed On 04-06-2024 14:09:29 CDT by Riccardo Burch M.D. [id number]
[2024-04-05 15:56] LABS: Troponin(5th) Baseline 265 ng/L (0-10)
[2024-04-05 16:51] LABS: Glucose Point of Care 162 mg/dL (70-110)
--- NOTE | 2024-04-05 17:03 | ECG_ITS ---
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 Measurements Intervals [place] Rate: 66 P: 63 [place]: 200 QRS: 0 QRSD: 112 T: -30 QT: 421 QTc: 444 Interpretive Statements SINUS RHYTHM POSSIBLE INFERIOR MYOCARDIAL INFARCTION , OF INDETERMINATE AGE [30 ms Q WAVE IN II/aVF] Compared to ECG 04/05/2024 15:29:02 No significant changes Electronically Signed On 04-06-2024 14:15:49 CDT by Riccardo Burch M.D. [id number]
[2024-04-05 17:58] LABS: Partial Thromboplastin Time 51.3 SECONDS (23.9-36.7)
[2024-04-05 18:06] LABS: Troponin 5 2HR Delta 4.6 ABS# (0-10)
[2024-04-05 18:09] LABS: Troponin 5 2HR 269.6 ng/L (0-10)
[2024-04-05] MEDS: pantoprazole 40 mg SDV IVP (20:14)
[2024-04-05] MEDS: atorvastatin 40 mg Tablet PO (20:14)
[2024-04-05] MEDS: lisinopril 20 mg Tablet 40 MG PO (20:14)
[2024-04-05 20:45] LABS: Glucose Point of Care 248 mg/dL (70-110)
--- NOTE | 2024-04-05 23:33 | ECG_ITS ---
[employer] 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 Measurements Intervals [place] Rate: 65 P: 44 [place]: 203 QRS: -10 QRSD: 106 T: 1 QT: 421 QTc: 439 Interpretive Statements SINUS RHYTHM POSSIBLE LEFT ATRIAL ENLARGEMENT [-0.1mV P-WAVE IN V1/V2] Compared to ECG 04/05/2024 17:04:29 Myocardial infarct finding no longer present Electronically Signed On 04-06-2024 14:14:26 CDT by Riccardo Burch M.D. [id number]
[2024-04-05] MEDS: heparin drip 25,000 UNIT/500 ML PREMIX 19 UNIT IV (23:49)
[2024-04-05 23:58] LABS: Partial Thromboplastin Time 54.1 SECONDS (23.9-36.7)
[2024-04-06] VITALS (20 sets, daily range): BP systolic 135–155; BP diastolic 74–89; PULSE 65–74; RESP 13–33; TEMP 36.6–37.1; O2SAT 91–100
[2024-04-06] MEDS: morphine 4 mg/mL SDV 1 mL 2 MG IVP ×6 (00:08→22:48)
[2024-04-06] MEDS: heparin 5,000 unit/mL INJ 1 mL IVP (00:09)
[2024-04-06 06:31] LABS: Basophils # 0.1 10^3/uL (0.0-0.1); Basophils % 0.7 %; Eosinophils # 0.4 10^3/uL (0.0-0.8); Eosinophils % 5.5 %; Hematocrit 27.1 % (36-47); Lymphocytes # 1.5 10^3/uL (0.8-4.8); Lymphocytes % 21.6 %; Mean Corpuscular HGB Conc 31.4 g/dL (30-55); Mean Corpuscular Hemoglobin 29.9 pg (27-33); Mean Corpuscular Volume 95.4 fl (85-98); Mean Platelet Volume 11.4 fL (7.4-10.4); Monocytes # 0.5 10^3/uL (0.2-0.9); Monocytes % 7.6 %; Neutrophils # 4.47 10^3/uL (1.8-7.7); Neutrophils % 64.3 %; Nucleated Red Blood Cells % 0 %; Platelet Count 121 10^3/cmm (157-399); Red Blood Count 2.84 10^6/uL (3.85-5.65); Red Cell Distribution Width 13.7 % (12.1-15.1); White Blood Count 6.95 10^3/uL (3.29-11.43)
[2024-04-06 06:43] LABS: Partial Thromboplastin Time 67.1 SECONDS (23.9-36.7)
[2024-04-06 06:49] LABS: Glucose Point of Care 190 mg/dL (70-110)
[2024-04-06 06:55] LABS: Alanine Aminotransferase 30 U/L (0-33); Albumin Level 3.5 g/dL (3.5-5.2); Alkaline Phosphatase 116 U/L (35-105); Anion Gap 17.9 (5-19); Aspartate Amino Transferase 23 U/L (0-32); Blood Urea Nitrogen 41 mg/dL (6-20); Calcium 8.4 mg/dL (8.5-10.5); Carbon Dioxide 21 mmol/L (22-29); Chloride 102 mmol/L (98-107); Creatinine Clr Calc Pharmacy 10.1331; Ferritin 761 ng/mL (15-150); Glomerular Filtration Rate 7.5 mL/min (90-130); Glucose 175 mg/dL (65-115); Iron 95 ug/dL (37-145); Osmolality Calculated 296 mOsm/kg (285-295); Percent Saturation 48.4 % (20-50); Phosphorus 7.1 mg/dL (2.5-4.5); Potassium 4.9 mmol/L (3.5-5.1); Sodium 136 mmol/L (136-145); Total Bilirubin 0.3 mg/dL (0.15-1.2); Total Iron Binding Capacity 196 mcg/dl; Total Protein 6.5 g/dL (6.6-8.7); Unsaturated Iron Binding 101 ug/dL (112-347)
[2024-04-06 06:56] LABS: Calcium 8.4 mg/dL (8.5-10.5)
[2024-04-06 06:59] LABS: Parathyroid Hormone 143.1 pg/mL (15-65)
--- NOTE | 2024-04-06 07:03 | PM.PN ---
Subjective Subjective: The patient was seen and examined. Complains of chest pain. Complains of pain by her right sided permacath. She has nausea. She is weak she is concerned that she is anxious. She has some edema. Poor appetite. Rest review of systems within normal limits. Medications: Reviewed: Yes Medication Review Details: Current Medications Acetaminophen (Acetaminophen 325 Mg Tablet) 650 mg PO Q6H PRN PRN Reason: Mild/Mod Pain Or Temp >/= 101 Albuterol/Ipratropium (Ipratropium-Albuterol 3 Ml Neb) 3 ml INHALATION Q4H PRN PRN Reason: SHORTNESS OF BREATH Aspirin (Aspirin 81 Mg Ec Tablet) 81 mg PO DAILY [facility] Last Admin: 04/05/24 09:13 Dose: 81 mg Atorvastatin Calcium (Atorvastatin 40 Mg Tablet) 40 mg PO BEDTIME [facility] Last Admin: 04/05/24 20:14 Dose: 40 mg Bumetanide (Bumetanide 1 Mg Tablet) 1 mg PO DAILY [facility] Last Admin: 04/05/24 09:14 Dose: 1 mg Carvedilol (Carvedilol 3.125 Mg Tablet) 3.125 mg PO BIDWM [facility] Last Admin: 04/05/24 17:43 Dose: 3.125 mg Clopidogrel Bisulfate (Clopidogrel 75 Mg Tablet) 75 mg PO DAILY [facility] Last Admin: 04/05/24 09:12 Dose: 75 mg Escitalopram Oxalate (Escitalopram 10 Mg Tablet) 10 mg PO DAILY [facility] Last Admin: 04/05/24 09:13 Dose: 10 mg Glucagon (Glucagon 1 Mg/Ml Kit 1 Ml) 1 mg IM ONCE PRN; Protocol PRN Reason: Adult Acute Hypoglycemia Nursing Prot. Heparin Sodium (Porcine) (Heparin 5,000 Unit/Ml Inj 1 Ml) 0 unit IVP PRN PRN; Protocol PRN Reason: Heparin Weight Based Protocol -Subsequent Bolus Last Admin: 04/06/24 00:09 Dose: 1,200 unit Heparin Sodium/Sodium Chloride (Heparin Drip) 25,000 unit in 500 mls @ 0 mls/hr IV CONT SHAY; Protocol Last Titration: 04/06/24 00:09 Dose: 17.64 unit/kg/hr, 20 mls/hr Dextrose (D5w) 500 mls @ 0 mls/hr IV ONCE PRN; Protocol PRN Reason: Adult Acute Hypoglycemia Prot Dextrose (D10w) 125 mls @ 750 mls/hr IV PRN PRN; Protocol PRN Reason: Adult Acute Hypoglycemia Nursing Protocol Dextrose (D10w) 250 mls @ 1,000 mls/hr IV PRN PRN; Protocol PRN Reason: Adult Acute Hypoglycemia Nursing Protocol Insulin Human Lispro (Insulin Lispro 100 Unit/1 Ml) 0 unit SUBCUT TIDWM SHAY; Protocol Last Admin: 04/05/24 17:44 Dose: 2 unit Isosorbide Mononitrate (Isosorbide Mononitrate Er 30 Mg Tablet) 30 mg PO DAILY [facility] Last Admin: 04/05/24 11:32 Dose: 30 mg Lisinopril (Lisinopril 20 Mg Tablet) 40 mg PO BEDTIME [facility] Last Admin: 04/05/24 20:14 Dose: 40 mg Morphine Sulfate (Morphine 4 Mg/Ml Sdv 1 Ml) 2 mg IVP Q4H PRN PRN Reason: SEVERE PAIN Last Admin: 04/06/24 05:33 Dose: 2 mg Pantoprazole Sodium (Pantoprazole 40 Mg Sdv) 40 mg IVP BEDTIME SHAY Last Admin: 04/05/24 20:14 Dose: 40 mg Sevelamer Carbonate (Sevelamer 800 Mg Tablet) 800 mg PO TIDWM SHAY Last Admin: 04/05/24 17:43 Dose: 800 mg Vitals/I&O/Wt Last Vital Signs Temp 97.8 F 04/06/24 04:00 Pulse 66 04/06/24 05:13 Resp 16 04/06/24 05:33 BP 155/89 04/06/24 04:00 Pulse Ox 99 04/06/24 04:00 O2 Del Method Nasal Cannula 04/06/24 04:00 O2 Flow Rate 2 04/05/24 16:00 04/05/24 04/06/24 04/06/24 22:59 06:59 14:59 Intake Total 363.3 / 1118.967 229.566 / 1348.533 Output Total 200 / 200 Balance 163.3 / 918.967 229.566 / 1148.533 Weight last 48 hrs Weight 63 kg Weight 62 kg Weight 60.1 kg Weight 56.699 kg Weight 56.699 kg Physical Exam Narrative: Lying in bed no apparent respiratory distress. Vital signs are stable. She is oxygenating well on nasal cannula oxygen. HEENT normocephalic atraumatic. Neck is supple. Lungs basal dullness, some crackles. Heart regular S1-S2. Abdomen is soft positive bowel sounds. Extremities 1+ edema. Right anterior chest wall permacath. Neuro awake alert oriented x 3 Data 04/06/24 05:44 04/06/24 05:44 A&P Assessment and plan (1) ESRD (end stage renal disease): 38-year-old lady with a past medical history of CAD status post stenting, end-stage renal disease, history of C. difficile, recent history of NSTEMI requiring RCA stenting, type 2 dm. 1. Chest pain as per cardiology. Follow-up echo based on results today will consider either medical management or further intervention. 2. ESRD dialysis today Use phosphorus binders 3. Diabetic control per hospitalist. 4. Blood pressure well-controlled monitor off of nitro drip. Try to decrease weight on dialysis. 5. Anemia check iron studies. High iron saturation. Would be Epogen. 6. Send cultures from permacath and from exit site. normal tsh Patient was seen and examined with the nurse using A/V equipment for telehealth visit. The patient consents to telehealth and dialysis. Plan As above. will give epo Attestations Medical Necessity Statement*: Chest pain, ESRD, diabetes, anemia Time Spent in Patient Care: 16 - 35 minutes (>than 50% of time spent in counselling and/or direct pt care on unit). Coding Level of Care Code Acute Code for Chg Fwd Diagnoses ESRD (end stage renal disease) N18.6
--- NOTE | 2024-04-06 08:05 | P.PN_ITS ---
Subjective 2 Subjective: Patient continues havnig atypical chest pain. No ekg changes or significant troponin uptrend. Vitals/I&O/Wt Last Vital Signs Temp 98.0 F 04/06/24 07:19 Pulse 67 04/06/24 07:19 Resp 16 04/06/24 07:19 BP 150/89 04/06/24 07:19 Pulse Ox 98 04/06/24 07:19 O2 Del Method Nasal Cannula 04/06/24 07:19 O2 Flow Rate 2 04/06/24 07:19 04/05/24 04/06/24 04/06/24 22:59 06:59 14:59 Intake Total 363.3 / 1118.967 229.566 / 1348.533 Output Total 200 / 200 Balance 163.3 / 918.967 229.566 / 1148.533 Weight last 48 hrs Weight 138 lb 14.259 oz Weight 136 lb 10.986 oz Weight 132 lb 7.965 oz Weight 125 lb Weight 125 lb Physical Exam 2 Narrative: GENERAL: Patient is alert, awake and oriented x3. [] NECK: No jugular vein distension. [] HEENT: No cyanosis. No icterus. No pallor. [] HEART: Regular S1 and S2. No murmur, rub or gallop. [] LUNGS: Clear to auscultate bilaterally. [] CENTRAL NERVOUS SYSTEM: Grossly nonfocal. [] EXTREMITIES: Lower extremities with 1+ edema bilaterally. Data 04/07/24 03:10 04/07/24 03:10 A&P Assessment and plan (1) Hyperlipidemia: Qualifiers: Hyperlipidemia type: mixed hyperlipidemia Qualified Code(s): E78.2 - Mixed hyperlipidemia (2) Chest pain: (3) CAD (coronary artery disease): (4) Atherosclerotic heart disease of [place] coronary artery with other forms of angina pectoris: (5) ESRD (end stage renal disease): Plan Patient's chest pain is atypical. However she continues complaining about substernal chest discomfort. Also has with multiple stents. Will rule out ischemia with Lexiscan. If it is not showing any significant ischemia, will be medically treated at this time. We added amlodipine to treat possible vasospasms. Thank you for involving us with care of this patient. We will continue to follow. Please call with question. Attestations 2 Medical Necessity Statement*: Care expected to cross 2 midnights. Coding Level of Care Code Acute Code for Chg Fwd Diagnoses Mixed hyperlipidemia E78.2 Hyperlipidemia type: mixed hyperlipidemia Chest pain R07.9 CAD (coronary artery disease) I25.10 Atherosclerotic heart disease of [place] coronary artery with other forms of angina pectoris I25.118 ESRD (end stage renal disease) N18.6
[2024-04-06] MEDS: carvedilol 3.125 mg Tablet PO ×2 (08:35→17:43)
[2024-04-06] MEDS: clopidogrel 75 mg Tablet PO (08:35)
[2024-04-06] MEDS: aspirin 81 mg EC Tablet PO (08:35)
[2024-04-06] MEDS: sevelamer 800 mg Tablet 1600 MG PO ×2 (08:35→17:43)
[2024-04-06] MEDS: isosorbide mononitrate ER 30 mg Tablet PO ×2 (08:35→14:41)
[2024-04-06] MEDS: insulin lispro 100 unit/1 mL SUBCUT (08:36)
[2024-04-06] MEDS: escitalopram 10 mg Tablet PO (08:36)
[2024-04-06] MEDS: bumetanide 1 mg Tablet PO (08:36)
--- NOTE | 2024-04-06 09:15 | PC.CHAP ---
Pastoral Care Encounter/Spiritual Assessment Type of Contact [] Declined video game creator visit [] Patient/Family/Request visit [] Outpatient visit [] Follow-up visit [] Physician referral [] Code/Alert [x] Routine visit [] Staff referral [] Actively dying [] Patient sleeping [] Family support [] [] Out of room [] Palliative care [] [] Receiving care in room [] Pre-surgical visit [] Trauma [] Long length of stay [] ICU visit [] Other: Relational/Emotional Strength [] Patient feels connected with others/family/visitors/staff [] Distress [] Loneliness/isolation [] Abandonment Spirituality of Patient [x] Person of [place] [] Attends Hinduism of their [place] [x] Believes in Prayer [] Reads Bible or Christian materials [] There are Spiritual issues to be addressed Automobile Salesman Interventions [x] Prayer [x] Active listening [] Non-anxious presence [] Spiritual/emotional support [] Crisis/trauma care [] Spiritual counseling [] Bereavement support [] Provided bereavement packet [x] Provided Bible/devotional materials [] Provided toy/stuffed animal, coloring book to patient or family member [] Provided Communion [] Anointing/[place] [] Salvation [x] Completed spiritual assessment [] Other: Impact on Illness or Injury [] Angry [] Fearful [] Anxious [] Often cries [] Exhaustion [] Unable to work [] Unable to attend restorationist [] Unable to walk/stand [] Unable to read [] Unable to drive [] Unable to eat/drink [] Unable to sleep [] Unable to be with family [] Patient intubated [] Other: Summary Time spent with patient 5 min
--- NOTE | 2024-04-06 10:09 | CT_ITS ---
WS: [id number] CT CHEST ANGIOGRAPHY WITH REFORMATS HISTORY: Chest pain TECHNIQUE: Contiguous axial images are obtained through the chest during arterial injection of intrav enous contrast. Images are reconstructed to evaluate the pulmonary arteries. MIP imaging also reviewe d. All CT scans at [facility] use at least one of these dose optimization techniques: automat ed exposure control; mA and/or kV adjustment per patient size (includes targeted exams where dose is matched to clinical indication); or iterative reconstruction. CONTRAST: Omnipaque 350; 100 mL IV. DLP: 313.38 mGy.cm COMPARISON: 12/27/2023 Good opacification of the pulmonary arteries. No filling defect or pulmonary emboli. Normal size re ry. Normal size aorta. Moderate LEFT heart enlargement. Small LEFT pericardial effusion. Very small LEFT pleural effusion. P artial LEFT lower lobe lobectomy. Surgical sutures are noted at the LEFT hilum. Axillary, mediastinal and hilar lymphadenopathy is reidentified. Largest lymph nodes at the RIGHT hilum measure up to 1.5 cm. Similar findings on the prior study from 12/27/2023. There is diffuse soft tissue anasarca. RIGHT jugular dialysis catheter. Prior cholecystectomy. Stomach is markedly distended with food products. Mild anterior wedging of T2 and T3. CT/CT angio chest PE protcl [id number] IMPRESSION: 1. No pulmonary embolism. 2. Soft tissue anasarca. 3. Axillary, mediastinal and hilar lymphadenopathy. Similar to prior studies. May be reactive. 4. LEFT heart enlargement. 5. Partial LEFT lower lobectomy.
--- NOTE | 2024-04-06 11:00 | PC.NURSE ---
Patient reports chest pain 03/03. Physician notified. Morphine 2mg IVP administered at approx 10:03am. 2mg Morphine wasted in pyxis with ROLA Siddiqi.
[2024-04-06 11:02] LABS: Troponin T (5th) Once 252 ng/L (0-10)
--- NOTE | 2024-04-06 11:06 | PC.NURSE ---
pt off floor for dialysis
[2024-04-06 11:14] LABS: Creatine Phosphokinase 62 U/L (26-192)
[2024-04-06 12:51] LABS: Glucose Point of Care 120 mg/dL (70-110)
[2024-04-06 13:59] LABS: Partial Thromboplastin Time 83.5 SECONDS (23.9-36.7)
[2024-04-06] MEDS: iohexol 350 mg/mL 500 mL Btl (per mL) IV (14:21)
--- NOTE | 2024-04-06 15:11 | PM.PN ---
Subjective Subjective: Hospital course, labs appreciated. Examination patient sitting upright at the edge of the bed currently on heparin drip. Complaining of central chest pain getting worse and on minimal exertion. Denies any nausea, vomiting, headache, dizziness. States pain got better after she was placed on nitro drip but has started again since the nitro drip has stopped. Vitals/I&O/Wt Last Vital Signs Temp 98.0 F 04/06/24 07:19 Pulse 67 04/06/24 10:19 Resp 16 04/06/24 10:19 BP 150/89 04/06/24 07:19 Pulse Ox 98 04/06/24 10:19 O2 Del Method Nasal Cannula 04/06/24 10:19 O2 Flow Rate 2 04/06/24 10:19 04/06/24 04/06/24 04/06/24 06:59 14:59 22:59 Intake Total 229.566 / 1348.533 519 / 519 Balance 229.566 / 1148.533 519 / 519 Weight last 48 hrs Weight 63 kg Weight 62 kg Weight 60.1 kg Weight 56.699 kg Physical Exam Const: COMMON NORMALS: no acute distress and patient oriented x3 HENMT: COMMON NORMALS: normocephalic HEAD & SCALP: normocephalic Eye: COMMON NORMALS: Equal, round and reactive pupils present and EOMs intact bilaterally PUPIL: Yes Equal, round and reactive pupils present Neck/C-Spine: COMMON NORMALS: no JVD Resp: COMMON NORMALS: normal respiratory effort, No retractions, No use of accessory muscles and clear to auscultation bilaterally AUSCULTATION: clear to auscultation bilaterally Cardio: COMMON NORMALS: no JVD, regular rate, regular rhythm, S1 normal heart sound present and S2 normal heart sound present RATE: regular rate RHYTHM: regular rhythm HEART SOUNDS: S1 normal heart sound present and S2 normal heart sound present GI: COMMON NORMALS: Normal to inspection, nondistended, normoactive bowel sounds present, Soft to palpation and non-tender PALPATION: Yes Soft to palpation Extremity: COMMON NORMALS: no calf tenderness and no pedal edema Neuro: COMMON NORMALS: patient oriented x3, CN's II-XII intact bilaterally and moves all extremities Psych: COMMON NORMALS: mental status grossly normal Data 04/06/24 05:44 04/06/24 05:44 A&P Assessment and plan (1) Chest pain: (2) NSTEMI (non-ST elevated myocardial infarction): (3) Atherosclerotic heart disease of [place] coronary artery with unstable angina pectoris: Qualifiers: [place] vs. transplanted heart: [place] heart Qualified Code(s): I25.110 - Atherosclerotic heart disease of [place] coronary artery with unstable angina pectoris (4) CAD (coronary artery disease): (5) Uncontrolled type 1 diabetes mellitus: Qualifiers: Glycemic state: with hyperglycemia Qualified Code(s): E10.65 - Type 1 diabetes mellitus with hyperglycemia (6) ESRD (end stage renal disease): (7) Hyperlipidemia: Qualifiers: Hyperlipidemia type: mixed hyperlipidemia Qualified Code(s): E78.2 - Mixed hyperlipidemia Plan Chest pain: Atypical. Patient does have significant history of CAD. Appreciate cardiology recommendation. Most recent cardiac angiogram on 03/27. Patient underwent successful PCI to distal RCA. Patient was also found to have distal 20 to 30% stenosis of LAD patent with luminal irregularity and previously placed LCx stent, 100% occlusion of RCA stent with [id number] faint collaterals. For now plan to treat medically because of frequent chest pain and cardiac angiograms in the past. Appreciate cycle troponin. Repeat troponin today morning. Add CPK. Appreciate echocardiogram which shows normal EF without regional wall motion abnormality, trace MR. Check CTA to rule out PE. Though unlikely. Will possibly plan for repeat cardiac stress test if persistent chest pain. Continue with heparin drip. Monitor PTT. Continue with aspirin, Plavix, statin. Appreciate A1c, lipid panel. Continue with beta-marii with Coreg 3.125 twice daily. Increase dose of Imdur to 60 mg oral daily. Monitor blood pressures. Will uptitrate depending on goal blood pressure of less than 140/90 mmHg with mean over 65. Cannot rule out pain being atypical in possibility of GERD. Increase Protonix to 40 mg twice daily. Add Carafate before meals and at bedtime. End-stage renal disease: On hemodialysis. Nephrology consulted. Type 1 diabetes mellitus: Continue with insulin sliding scale premeals. A1c of 6.7. Hypertension: Goal blood pressure less than 140/90 mmHg. Continue with current dose of lisinopril, Coreg. Increasing Imdur as above. Telemetry. Full code Renal dialysis diet Protonix for PUD prophylaxis Heparin drip will be sufficient for DVT prophylaxis Attestations Medical Necessity Statement*: Requires further hospitalization for management of chest pain in a patient with significant history of CAD, unstable angina post recent PCI, type 1 diabetes mellitus, end-stage renal disease on hemodialysis Diagnoses Chest pain R07.9 NSTEMI (non-ST elevated myocardial infarction) I21.4 Atherosclerosis of [place] coronary artery of [place] heart with unstable angina pectoris I25.110 [place] vs. transplanted heart: [place] heart CAD (coronary artery disease) I25.10 Uncontrolled type 1 diabetes mellitus with hyperglycemia E10.65 Glycemic state: with hyperglycemia ESRD (end stage renal disease) N18.6 Mixed hyperlipidemia E78.2 Hyperlipidemia type: mixed hyperlipidemia
[2024-04-06 17:30] LABS: Glucose Point of Care 193 mg/dL (70-110)
[2024-04-06] MEDS: sucralfate 1 gm/10 mL Oral Liq UDC PO ×2 (17:43→21:31)
--- NOTE | 2024-04-06 18:02 | PC.HD ---
Pt states that her OP clinic said that her cath site / incision site were oozie and red, concerned about infection. Dressing removed, no drainage noted to site or on dressing, narrow red margin noted to cath insertion site and incision, area tender and puffy. Picture, along with assessment and pt report of clinic concerns sent to Dr Vail who doesn't think it looks very concerning for infection but requested antibiotic ointment be applied, done.
[2024-04-06 20:18] LABS: Glucose Point of Care 188 mg/dL (70-110)
[2024-04-06 20:48] LABS: Partial Thromboplastin Time 76.6 SECONDS (23.9-36.7)
[2024-04-06] MEDS: atorvastatin 40 mg Tablet PO (21:31)
[2024-04-06] MEDS: pantoprazole 40 mg SDV IVP (21:31)
[2024-04-06] MEDS: lisinopril 20 mg Tablet 40 MG PO (21:31)
--- NOTE | 2024-04-06 22:25 | ECG_ITS ---
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 Measurements Intervals [place] Rate: 71 P: 49 RI: 197 QRS: 4 QRSD: 105 T: -10 QT: 387 QTc: 423 Interpretive Statements SINUS RHYTHM POSSIBLE LEFT ATRIAL ENLARGEMENT [-0.1mV P-WAVE IN V1/V2] MODERATE T-WAVE ABNORMALITY, CONSIDER LATERAL ISCHEMIA [-0.1+ mV T-WAVE IN I/aVL/V5/V6] MODERATE T-WAVE ABNORMALITY, CONSIDER INFERIOR ISCHEMIA [-0.1+ mV T-WAVE IN II/aVF] Compared to ECG 04/05/2024 23:33:29 T-wave abnormality now present Possible ischemia now present Electronically Signed On 04-08-2024 01:03:58 CDT by Gilberto Eugene M.D. [id number]
[2024-04-06] MEDS: nitroglycerin 1 gm/inch oint Pkt 1 INCH TOPICAL (22:47)
--- NOTE | 2024-04-06 23:33 | ECG_ITS ---
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 Measurements Intervals [place] Rate: 69 P: 23 SD: 180 QRS: 0 QRSD: 113 T: 23 QT: 411 QTc: 443 Interpretive Statements SINUS RHYTHM MODERATE INTRAVENTRICULAR CONDUCTION DELAY [110+ ms QRS DURATION] MODERATE T-WAVE ABNORMALITY, CONSIDER LATERAL ISCHEMIA [-0.1+ mV T-WAVE IN I/aVL/V5/V6] Compared to ECG 04/06/2024 22:32:49 Intraventricular conduction delay now present T-wave abnormality still present Possible ischemia still present Electronically Signed On 04-08-2024 01:04:08 CDT by Gilberto Eugene M.D. [id number]
[2024-04-06] MEDS: nitroglycerin drip 50 MG/250 ML PREMIX IV (23:50)
--- NOTE | 2024-04-06 23:56 | PC.NURSE ---
When this nurse started the nitro drip, this nurse removed the nitro patch that was placed on the patient at 2248 on the left upper chest
[2024-04-07] VITALS (46 sets, daily range): BP systolic 81–208; BP diastolic 41–100; PULSE 62–98; RESP 16–42; TEMP 36.7–37.2; O2SAT 94–100
[2024-04-07] MEDS: heparin drip 25,000 UNIT/500 ML PREMIX 19 UNIT IV (00:09)
[2024-04-07] MEDS: morphine 4 mg/mL SDV 1 mL 2 MG IVP ×3 (01:17→08:42)
[2024-04-07 03:31] LABS: Basophils # 0.1 10^3/uL (0.0-0.1); Basophils % 0.8 %; Eosinophils # 0.4 10^3/uL (0.0-0.8); Eosinophils % 6.4 %; Hematocrit 27.2 % (36-47); Lymphocytes # 1.6 10^3/uL (0.8-4.8); Mean Corpuscular HGB Conc 30.9 g/dL (30-55); Mean Corpuscular Hemoglobin 29.2 pg (27-33); Mean Corpuscular Volume 94.4 fl (85-98); Mean Platelet Volume 11.1 fL (7.4-10.4); Monocytes # 0.6 10^3/uL (0.2-0.9); Monocytes % 8.8 %; Neutrophils # 3.74 10^3/uL (1.8-7.7); Neutrophils % 58.8 %; Nucleated Red Blood Cells % 0 %; Platelet Count 140 10^3/cmm (157-399); Red Blood Count 2.88 10^6/uL (3.85-5.65); Red Cell Distribution Width 13.6 % (12.1-15.1); White Blood Count 6.36 10^3/uL (3.29-11.43)
[2024-04-07 03:44] LABS: Partial Thromboplastin Time 70.3 SECONDS (23.9-36.7)
[2024-04-07 03:47] LABS: Alanine Aminotransferase 26 U/L (0-33); Albumin Level 3.5 g/dL (3.5-5.2); Alkaline Phosphatase 129 U/L (35-105); Anion Gap 14.5 (5-19); Aspartate Amino Transferase 22 U/L (0-32); Blood Urea Nitrogen 25 mg/dL (6-20); Calcium 8.4 mg/dL (8.5-10.5); Carbon Dioxide 29 mmol/L (22-29); Chloride 99 mmol/L (98-107); Creatinine Clr Calc Pharmacy 16.4156; Glomerular Filtration Rate 13.4 mL/min (90-130); Glucose 176 mg/dL (65-115); Magnesium 1.9 mg/dL (1.7-2.3); Osmolality Calculated 295 mOsm/kg (285-295); Phosphorus 4.5 mg/dL (2.5-4.5); Potassium 4.5 mmol/L (3.5-5.1); Sodium 138 mmol/L (136-145); Total Bilirubin 0.3 mg/dL (0.15-1.2); Total Protein 6.5 g/dL (6.6-8.7)
[2024-04-07] MEDS: sucralfate 1 gm/10 mL Oral Liq UDC PO ×3 (05:34→20:49)
[2024-04-07] MEDS: regadenoson 0.4 Mg/5 ml Syringe IVP (07:40)
--- NOTE | 2024-04-07 07:52 | P.PN_ITS ---
Subjective 2 Subjective: Patient has atypical chest pain. Vitals/I&O/Wt Last Vital Signs Temp 99.0 F 04/07/24 04:00 Pulse 63 04/07/24 04:40 Resp 18 04/07/24 05:34 BP 136/82 04/07/24 04:00 Pulse Ox 98 04/07/24 04:00 O2 Del Method Nasal Cannula 04/07/24 04:00 O2 Flow Rate 2 04/07/24 04:00 04/06/24 04/07/24 04/07/24 22:59 06:59 14:59 Intake Total 875.334 / 1394.334 154.216 / 1548.550 Output Total 3001 / 3001 Balance -2125.666 / -1606.666 154.216 / -1452.450 Weight last 48 hrs Weight 134 lb 7.712 oz Weight 132 lb 4.438 oz Weight 138 lb 14.259 oz Physical Exam 2 Narrative: GENERAL: Patient is alert, awake and oriented x3. [] NECK: No jugular vein distension. [] HEENT: No cyanosis. No icterus. No pallor. [] HEART: Regular S1 and S2. No murmur, rub or gallop. [] LUNGS: Clear to auscultate bilaterally. [] CENTRAL NERVOUS SYSTEM: Grossly nonfocal. [] EXTREMITIES: Lower extremities with 1+ edema bilaterally. Data 04/07/24 03:10 04/07/24 03:10 Micro: Microbiology 04/06/24 19:55 Blood Culture - Preliminary Blood SPECIMEN COLLECTED 04/06/24 20:00 Blood Culture - Preliminary Blood SPECIMEN COLLECTED A&P Assessment and plan (1) Hyperlipidemia: Qualifiers: Hyperlipidemia type: mixed hyperlipidemia Qualified Code(s): E78.2 - Mixed hyperlipidemia (2) Chest pain: (3) CAD (coronary artery disease): (4) Atherosclerotic heart disease of [place] coronary artery with other forms of angina pectoris: (5) ESRD (end stage renal disease): Plan Patient's chest pain is atypical. Stress test could not be done today due to nuclear medicine availability. Tentatively tomorrow We added amlodipine to treat possible vasospasms. Thank you for involving us with care of this patient. We will continue to follow. Please call with question. Attestations 2 Medical Necessity Statement*: Care expected to cross 2 midnights. Coding Level of Care Code Acute Code for Chg Fwd Diagnoses Mixed hyperlipidemia E78.2 Hyperlipidemia type: mixed hyperlipidemia Chest pain R07.9 CAD (coronary artery disease) I25.10 Atherosclerotic heart disease of [place] coronary artery with other forms of angina pectoris I25.118 ESRD (end stage renal disease) N18.6
[2024-04-07 08:35] LABS: Glucose Point of Care 217 mg/dL (70-110)
[2024-04-07] MEDS: sevelamer 800 mg Tablet 1600 MG PO ×2 (08:43→17:15)
[2024-04-07] MEDS: clopidogrel 75 mg Tablet PO (08:43)
[2024-04-07] MEDS: isosorbide mononitrate ER 30 mg Tablet 60 MG PO (08:43)
[2024-04-07] MEDS: bumetanide 1 mg Tablet PO (08:44)
[2024-04-07] MEDS: aspirin 81 mg EC Tablet PO (08:44)
[2024-04-07] MEDS: carvedilol 3.125 mg Tablet PO ×2 (08:44→17:15)
[2024-04-07] MEDS: escitalopram 10 mg Tablet PO (08:44)
--- NOTE | 2024-04-07 08:45 | PM.PN ---
Subjective Subjective: Weak, having chest pain. Attempted to have nuclear stress test this morning and there was a problem with the dye. Will need to get stress test tomorrow. Patient is anxious Medications: Reviewed: Yes Medication Review Details: Current Medications Acetaminophen (Acetaminophen 325 Mg Tablet) 650 mg PO Q6H PRN PRN Reason: Mild/Mod Pain Or Temp >/= 101 Albuterol/Ipratropium (Ipratropium-Albuterol 3 Ml Neb) 3 ml INHALATION Q4H PRN PRN Reason: SHORTNESS OF BREATH Aminophylline (Aminophylline 25 Mg/Ml Sdv 10 Ml) 25 mg IVP Q2M PRN PRN Reason: see dose instructions Stop: 04/08/24 05:49 Aspirin (Aspirin 81 Mg Ec Tablet) 81 mg PO DAILY [facility] Last Admin: 04/06/24 08:35 Dose: 81 mg Atorvastatin Calcium (Atorvastatin 40 Mg Tablet) 40 mg PO BEDTIME [facility] Last Admin: 04/06/24 21:31 Dose: 40 mg Bumetanide (Bumetanide 1 Mg Tablet) 1 mg PO DAILY [facility] Last Admin: 04/06/24 08:36 Dose: 1 mg Carvedilol (Carvedilol 3.125 Mg Tablet) 3.125 mg PO BIDWM [facility] Last Admin: 04/06/24 17:43 Dose: 3.125 mg Clopidogrel Bisulfate (Clopidogrel 75 Mg Tablet) 75 mg PO DAILY [facility] Last Admin: 04/06/24 08:35 Dose: 75 mg Escitalopram Oxalate (Escitalopram 10 Mg Tablet) 10 mg PO DAILY [facility] Last Admin: 04/06/24 08:36 Dose: 10 mg Glucagon (Glucagon 1 Mg/Ml Kit 1 Ml) 1 mg IM ONCE PRN; Protocol PRN Reason: Adult Acute Hypoglycemia Nursing Prot. Heparin Sodium (Porcine) (Heparin 5,000 Unit/Ml Inj 1 Ml) 0 unit IVP PRN PRN; Protocol PRN Reason: Heparin Weight Based Protocol -Subsequent Bolus Last Admin: 04/06/24 00:09 Dose: 1,200 unit Heparin Sodium/Sodium Chloride (Heparin Drip) 25,000 unit in 500 mls @ 0 mls/hr IV CONT SHAY; Protocol Last Titration: 04/07/24 03:50 Dose: 16.76 unit/kg/hr, 19 mls/hr Dextrose (D5w) 500 mls @ 0 mls/hr IV ONCE PRN; Protocol PRN Reason: Adult Acute Hypoglycemia Prot Dextrose (D10w) 125 mls @ 750 mls/hr IV PRN PRN; Protocol PRN Reason: Adult Acute Hypoglycemia Nursing Protocol Dextrose (D10w) 250 mls @ 1,000 mls/hr IV PRN PRN; Protocol PRN Reason: Adult Acute Hypoglycemia Nursing Protocol Nitroglycerin/Dextrose (Nitroglycerin Drip) 50 mg in 250 mls @ 0 mls/hr IV .Q0M SHAY; Protocol Last Titration: 04/07/24 00:32 Dose: 40 mcg/min, 12 mls/hr Insulin Human Lispro (Insulin Lispro 100 Unit/1 Ml) 0 unit SUBCUT TIDWM [facility]; Protocol Last Admin: 04/06/24 17:42 Dose: Not Given Isosorbide Mononitrate (Isosorbide Mononitrate Er 30 Mg Tablet) 60 mg PO DAILY [facility] Lisinopril (Lisinopril 20 Mg Tablet) 40 mg PO BEDTIME [facility] Last Admin: 04/06/24 21:31 Dose: 40 mg Morphine Sulfate (Morphine 4 Mg/Ml Sdv 1 Ml) 2 mg IVP Q4H PRN PRN Reason: SEVERE PAIN Last Admin: 04/07/24 08:42 Dose: 2 mg Nitroglycerin (Nitroglycerin 0.4 Mg Sublingual Tablet) 0.4 mg SUBLINGUAL Q5M PRN PRN Reason: CHEST PAIN Stop: 04/08/24 05:49 Ondansetron HCl (Ondansetron 2 Mg/Ml Sdv 2 Ml) 4 mg IVP Q2M PRN PRN Reason: NAUSEA Pantoprazole Sodium (Pantoprazole 40 Mg Sdv) 40 mg IVP Q12H [facility] Last Admin: 04/06/24 21:31 Dose: 40 mg Ranolazine (Ranolazine (12hr) 500 Mg Tablet) 500 mg PO BID [facility] Sevelamer Carbonate (Sevelamer 800 Mg Tablet) 1,600 mg PO TIDWM [facility] Last Admin: 04/06/24 17:43 Dose: 1,600 mg Sucralfate (Sucralfate 1 Gm/10 Ml Oral Liq Udc) 1 gm PO AC&BEDTIME [facility] Last Admin: 04/07/24 05:34 Dose: 1 gm Vitals/I&O/Wt Last Vital Signs Temp 99.0 F 04/07/24 04:00 Pulse 69 04/07/24 08:00 Resp 18 04/07/24 08:42 BP 129/71 04/07/24 08:00 Pulse Ox 95 04/07/24 08:42 O2 Del Method Room Air 04/07/24 08:00 O2 Flow Rate 2 04/07/24 04:00 04/06/24 04/07/24 04/07/24 22:59 06:59 14:59 Intake Total 875.334 / 1394.334 154.216 / 1548.550 Output Total 3001 / 3001 Balance -2125.666 / -1606.666 154.216 / -1452.450 Weight last 48 hrs Weight 61 kg Weight 60 kg Weight 63 kg Physical Exam Narrative: Lying in bed, anxious Vital signs are stable. She is oxygenating well on nasal cannula oxygen. HEENT normocephalic atraumatic. Neck is supple. Lungs basal dullness, and wheezes Heart regular S1-S2. Abdomen is soft positive bowel sounds. Extremities 1+ edema. Right anterior chest wall permacath. Neuro awake alert oriented x 3 Data 04/07/24 03:10 04/07/24 03:10 Micro: Microbiology 04/06/24 19:55 Blood Culture - Preliminary Blood SPECIMEN COLLECTED 04/06/24 20:00 Blood Culture - Preliminary Blood SPECIMEN COLLECTED A&P Assessment and plan (1) ESRD (end stage renal disease): 38-year-old lady with a past medical history of CAD status post stenting, end-stage renal disease, history of C. difficile, recent history of NSTEMI requiring RCA stenting, type 2 dm. 1. Chest pain as per cardiology. normal echo for stress test tomorrow on nitro drip oer cardiology 2. ESRD dialysis today to get back on schedule Use phosphorus binders 3. Diabetic control per hospitalist. 4. Blood pressure well-controlled -dec meds 5. Anemia check iron studies. High iron saturation. continue Epogen. 6. use antibiotics cream at PC exit site normal tsh Patient was seen and examined with the nurse using A/V equipment for telehealth visit. The patient consents to telehealth and dialysis. Plan As above. will give epo Attestations Medical Necessity Statement*: esrd, anemia, cp Time Spent in Patient Care: 16 - 35 minutes (>than 50% of time spent in counselling and/or direct pt care on unit). Coding Level of Care Code Acute Code for Chg Fwd Diagnoses ESRD (end stage renal disease) N18.6
[2024-04-07] MEDS: ranolazine (12HR) 500 mg Tablet PO ×2 (08:51→17:15)
[2024-04-07] MEDS: insulin lispro 100 unit/1 mL SUBCUT (08:51)
[2024-04-07] MEDS: pantoprazole 40 mg SDV IVP ×2 (08:51→22:43)
--- NOTE | 2024-04-07 08:57 | PC.NURSE ---
Nuclear medicine radiation dose spilled in container and unable to due stress test today due to no available extra doses, Dr. Burch advised and will do lexiscan again tomorrow, 04/08/24.
[2024-04-07 09:57] LABS: Partial Thromboplastin Time 59.3 SECONDS (23.9-36.7)
[2024-04-07 10:13] LABS: Glucose Point of Care 200 mg/dL (70-110)
--- NOTE | 2024-04-07 13:17 | P.PN_ITS ---
Subjective 2 Subjective: Overnight patient developed chest pain radiating to jaw and left side for which nitro drip was started. On examination today she states she still having mild retrosternal chest pain though not radiating to her jaw and left side. She states pain last night was different in type than her chest pain she has been having for last few days. Currently she denies any nausea, vomiting, headache. Hemodynamically stable. Vitals/I&O/Wt Last Vital Signs Temp 99.0 F 04/07/24 04:00 Pulse 69 04/07/24 08:00 Resp 18 04/07/24 08:42 BP 129/71 04/07/24 08:00 Pulse Ox 95 04/07/24 08:42 O2 Del Method Room Air 04/07/24 08:00 O2 Flow Rate 2 04/07/24 04:00 04/06/24 04/07/24 04/07/24 22:59 06:59 14:59 Intake Total 875.334 / 1394.334 154.216 / 1548.550 241.283 / 241.283 Output Total 3001 / 3001 Balance -2125.666 / -1606.666 154.216 / -1452.450 241.283 / 241.283 Weight last 48 hrs Weight 61 kg Weight 60 kg Weight 63 kg Physical Exam 2 Const: COMMON NORMALS: no acute distress and patient oriented x3 HENMT: COMMON NORMALS: normocephalic HEAD & SCALP: normocephalic Eye: COMMON NORMALS: Equal, round and reactive pupils present and EOMs intact bilaterally PUPIL: Yes Equal, round and reactive pupils present Neck/C-Spine: COMMON NORMALS: no JVD Resp: COMMON NORMALS: normal respiratory effort, No retractions, No use of accessory muscles and clear to auscultation bilaterally AUSCULTATION: clear to auscultation bilaterally Cardio: COMMON NORMALS: no JVD, regular rate, regular rhythm, S1 normal heart sound present and S2 normal heart sound present RATE: regular rate RHYTHM: regular rhythm HEART SOUNDS: S1 normal heart sound present and S2 normal heart sound present GI: COMMON NORMALS: Normal to inspection, nondistended, normoactive bowel sounds present, Soft to palpation and non-tender PALPATION: Yes Soft to palpation Extremity: COMMON NORMALS: no calf tenderness and no pedal edema Neuro: COMMON NORMALS: patient oriented x3, CN's II-XII intact bilaterally and moves all extremities Psych: COMMON NORMALS: mental status grossly normal Data 04/07/24 03:10 04/07/24 03:10 Micro: Microbiology 04/06/24 19:55 Blood Culture - Preliminary Blood SPECIMEN COLLECTED 04/06/24 20:00 Blood Culture - Preliminary Blood SPECIMEN COLLECTED A&P Assessment and plan (1) Chest pain: (2) NSTEMI (non-ST elevated myocardial infarction): (3) Atherosclerotic heart disease of [place] coronary artery with unstable angina pectoris: Qualifiers: [place] vs. transplanted heart: [place] heart Qualified Code(s): I25.110 - Atherosclerotic heart disease of [place] coronary artery with unstable angina pectoris (4) CAD (coronary artery disease): (5) Uncontrolled type 1 diabetes mellitus: Qualifiers: Glycemic state: with hyperglycemia Qualified Code(s): E10.65 - Type 1 diabetes mellitus with hyperglycemia (6) ESRD (end stage renal disease): (7) Hyperlipidemia: Qualifiers: Hyperlipidemia type: mixed hyperlipidemia Qualified Code(s): E78.2 - Mixed hyperlipidemia Plan Chest pain: Atypical. Patient does have significant history of CAD. Appreciate cardiology recommendation. Most recent cardiac angiogram on 03/27. Patient underwent successful PCI to distal RCA. Patient was also found to have distal 20 to 30% stenosis of LAD patent with luminal irregularity and previously placed LCx stent, 100% occlusion of RCA stent with pain-ix-exvjt faint collaterals. For now plan to treat medically because of frequent chest pain and cardiac angiograms in the past. Pressure troponin and CPK. CTA ruled out PE. Appreciate echocardiogram which shows normal EF without regional wall motion abnormality, trace MR. Care discussed further with cardiology. Plan for cardiac stress test. For now continue with IV nitroglycerin and heparin drip. Continue with aspirin, Plavix, statin. Appreciate A1c, lipid panel. Continue with beta-marii with Coreg 3.125 twice daily. Add Ranexa 500 mg twice daily. Cannot rule out pain being atypical in possibility of GERD. Continue with Protonix to 40 mg twice daily and Carafate before meals and at bedtime. End-stage renal disease: On hemodialysis. Nephrology on board Type 1 diabetes mellitus: Continue with insulin sliding scale premeals. A1c of 6.7. Hypertension: Goal blood pressure less than 140/90 mmHg. Continue with current dose of lisinopril, Coreg. Increasing Imdur as above. Telemetry. Full code Renal dialysis diet Protonix for PUD prophylaxis Heparin drip will be sufficient for DVT prophylaxis Attestations 2 Medical Necessity Statement*: Requires further hospitalization for management of chest pain in a patient with high concerns for CAD, recent PCI, end-stage renal disease on hemodialysis Diagnoses Chest pain R07.9 NSTEMI (non-ST elevated myocardial infarction) I21.4 Atherosclerosis of [place] coronary artery of [place] heart with unstable angina pectoris I25.110 [place] vs. transplanted heart: [place] heart CAD (coronary artery disease) I25.10 Uncontrolled type 1 diabetes mellitus with hyperglycemia E10.65 Glycemic state: with hyperglycemia ESRD (end stage renal disease) N18.6 Mixed hyperlipidemia E78.2 Hyperlipidemia type: mixed hyperlipidemia
--- NOTE | 2024-04-07 15:09 | PC.NURSE ---
Physician order Stop Morhpine 2mg q4h and replace with morphine 1mg q6h
--- NOTE | 2024-04-07 15:10 | PC.NURSE ---
Patient has complained of persistent chest pain throughout the shift today. Physician is aware. Nurse will continue to try non-pharmacological pain management.
--- NOTE | 2024-04-07 17:02 | PC.NURSE ---
Nurse called lab to check on PTT that was ordered at 1600. Magaly from lab verified that it has been drawn, however it was drawn late.
[2024-04-07 17:04] LABS: Glucose Point of Care 102 mg/dL (70-110)
[2024-04-07] MEDS: morphine 4 mg/mL SDV 1 mL 1 MG IVP ×2 (17:15→22:43)
[2024-04-07 17:36] LABS: Partial Thromboplastin Time 85.2 SECONDS (23.9-36.7)
[2024-04-07 20:34] LABS: Glucose Point of Care 94 mg/dL (70-110)
[2024-04-07] MEDS: lisinopril 20 mg Tablet 40 MG PO (20:49)
[2024-04-07] MEDS: atorvastatin 40 mg Tablet PO (20:49)
[2024-04-07] MEDS: ondansetron 2 mg/ML SDV 2 mL 4 MG IVP (22:43)
[2024-04-07 23:25] LABS: Partial Thromboplastin Time 56.6 SECONDS (23.9-36.7)
[2024-04-08] VITALS (15 sets, daily range): BP systolic 139–221; BP diastolic 74–109; PULSE 70–89; RESP 8–28; TEMP 36.3–37.2; O2SAT 93–99
[2024-04-08] MEDS: heparin drip 25,000 UNIT/500 ML PREMIX 17 UNIT IV (02:35)
[2024-04-08 04:23] LABS: Basophils # 0.1 10^3/uL (0.0-0.1); Basophils % 0.8 %; Eosinophils # 0.4 10^3/uL (0.0-0.8); Eosinophils % 6.3 %; Hematocrit 28.8 % (36-47); Lymphocytes # 1.4 10^3/uL (0.8-4.8); Lymphocytes % 21.5 %; Mean Corpuscular HGB Conc 31.9 g/dL (30-55); Mean Corpuscular Hemoglobin 30.1 pg (27-33); Mean Corpuscular Volume 94.1 fl (85-98); Mean Platelet Volume 11.3 fL (7.4-10.4); Monocytes # 0.5 10^3/uL (0.2-0.9); Neutrophils # 4.12 10^3/uL (1.8-7.7); Neutrophils % 63.1 %; Nucleated Red Blood Cells % 0 %; Platelet Count 143 10^3/cmm (157-399); Red Blood Count 3.06 10^6/uL (3.85-5.65); Red Cell Distribution Width 13.6 % (12.1-15.1); White Blood Count 6.52 10^3/uL (3.29-11.43)
[2024-04-08 04:52] LABS: Alanine Aminotransferase 22 U/L (0-33); Alkaline Phosphatase 127 U/L (35-105); Anion Gap 18.1 (5-19); Aspartate Amino Transferase 18 U/L (0-32); Blood Urea Nitrogen 15 mg/dL (6-20); Carbon Dioxide 27 mmol/L (22-29); Chloride 100 mmol/L (98-107); Creatinine Clr Calc Pharmacy 19.1896; Globulin 2.9 g/dL (1.3-4.6); Glomerular Filtration Rate 16.3 mL/min (90-130); Glucose 96 mg/dL (65-115); Magnesium 1.9 mg/dL (1.7-2.3); Osmolality Calculated 293 mOsm/kg (285-295); Potassium 4.1 mmol/L (3.5-5.1); Sodium 141 mmol/L (136-145); Total Bilirubin 0.4 mg/dL (0.15-1.2); Total Protein 6.9 g/dL (6.6-8.7)
--- NOTE | 2024-04-08 05:00 | ECG_ITS ---
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
[2024-04-08] MEDS: morphine 4 mg/mL SDV 1 mL 1 MG IVP ×2 (05:37→10:11)
[2024-04-08 06:16] LABS: Glucose Point of Care 111 mg/dL (70-110)
--- NOTE | 2024-04-08 06:29 | P.PN_ITS ---
Subjective 2 Subjective: Patient's blood pressure is uncontrolled. complained of blurry vision today. Refused stress test. Vitals/I&O/Wt Last Vital Signs Temp 98.5 F 04/08/24 04:00 Pulse 73 04/08/24 04:00 Resp 19 H 04/08/24 05:37 BP 178/89 04/08/24 04:00 Pulse Ox 95 04/08/24 05:37 O2 Del Method Room Air 04/08/24 04:00 O2 Flow Rate 2 04/07/24 04:00 04/07/24 04/07/24 04/08/24 14:59 22:59 06:59 Intake Total 241.283 / 241.283 966.883 / 1208.166 374.017 / 1582.183 Output Total 2402 / 2402 Balance 241.283 / 241.283 -1435.117 / -1193.834 374.017 / -819.817 Weight last 48 hrs Weight 127 lb 13.89 oz Weight 127 lb 13.89 oz Weight 134 lb 7.712 oz Weight 132 lb 4.438 oz Physical Exam 2 Narrative: GENERAL: Patient is alert, awake and oriented x3. [] NECK: No jugular vein distension. [] HEENT: No cyanosis. No icterus. No pallor. [] HEART: Regular S1 and S2. No murmur, rub or gallop. [] LUNGS: Clear to auscultate bilaterally. [] CENTRAL NERVOUS SYSTEM: Grossly nonfocal. [] EXTREMITIES: Lower extremities with 1+ edema bilaterally. Data 04/09/24 04:27 04/09/24 04:27 Micro: Microbiology 04/06/24 20:00 Blood Culture - Preliminary Blood NEGATIVE TO DATE 04/06/24 19:55 Blood Culture - Preliminary Blood NEGATIVE TO DATE A&P Assessment and plan (1) Hyperlipidemia: Qualifiers: Hyperlipidemia type: mixed hyperlipidemia Qualified Code(s): E78.2 - Mixed hyperlipidemia (2) Chest pain: (3) CAD (coronary artery disease): (4) Atherosclerotic heart disease of [place] coronary artery with other forms of angina pectoris: (5) ESRD (end stage renal disease): Plan Patient refused Lexiscan today. Will obtain a dobutamine stress echocardiogram. Blood pressure is uncontrolled. Can start nitro gtt. If bp stays elevated, may start nicardipine gtt Continue dual antiplatelet therapy Thank you for involving us with care of this patient. We will continue to follow. Please call with question. Attestations 2 Medical Necessity Statement*: Care expected to cross 2 midnights. Coding Level of Care Code Acute Code for Chg Fwd Diagnoses Mixed hyperlipidemia E78.2 Hyperlipidemia type: mixed hyperlipidemia Chest pain R07.9 CAD (coronary artery disease) I25.10 Atherosclerotic heart disease of [place] coronary artery with other forms of angina pectoris I25.118 ESRD (end stage renal disease) N18.6
--- NOTE | 2024-04-08 06:29 | PC.NURSE ---
Patient refusing remaining part of stress test this morning. Saying that after the initial part of her testing yesterday morning she developed vision issues in right eye, peripheral vision diminished and a black spot blocking the top of vision field. Notified stress lab and Dr. Guevara.
--- NOTE | 2024-04-08 07:06 | P.PN_ITS ---
Subjective 2 Subjective: no new c/o Medications: Reviewed: Yes Vitals/I&O/Wt Last Vital Signs Temp 98.5 F 04/08/24 04:00 Pulse 73 04/08/24 04:00 Resp 19 H 04/08/24 05:37 BP 178/89 04/08/24 04:00 Pulse Ox 95 04/08/24 05:37 O2 Del Method Room Air 04/08/24 04:00 O2 Flow Rate 2 04/07/24 04:00 04/07/24 04/08/24 04/08/24 22:59 06:59 14:59 Intake Total 966.883 / 1208.166 374.017 / 1582.183 Output Total 2402 / 2402 Balance -1435.117 / -1193.834 374.017 / -819.817 Weight last 48 hrs Weight 58 kg Weight 58 kg Weight 61 kg Weight 60 kg Physical Exam 2 Narrative: Lying in bed, anxious Vital signs are stable. She is oxygenating well on nasal cannula oxygen. HEENT normocephalic atraumatic. Neck is supple. Lungs basal dullness, and wheezes Heart regular S1-S2. Abdomen is soft positive bowel sounds. Extremities 1+ edema. Right anterior chest wall permacath. Neuro awake alert oriented x 3 Data 04/08/24 03:28 04/08/24 03:28 Micro: Microbiology 04/06/24 20:00 Blood Culture - Preliminary Blood NEGATIVE TO DATE 04/06/24 19:55 Blood Culture - Preliminary Blood NEGATIVE TO DATE A&P Assessment and plan (1) ESRD (end stage renal disease): 38-year-old lady with a past medical history of CAD status post stenting, end- stage renal disease, history of C. difficile, recent history of NSTEMI requiring RCA stenting, type 2 dm. 1. Chest pain as per cardiology. normal echo for stress test today on nitro drip oer cardiology 2. ESRD dialysis - HD per TTS schedule Use phosphorus binders 3. Diabetic control per hospitalist. 4. Blood pressure well-controlled 5. Anemia check iron studies. High iron saturation. continue Epogen. 6. use antibiotics cream at PC exit site Patient was seen and examined with the nurse using A/V equipment for telehealth visit. The patient consents to telehealth and dialysis. Plan As above. will give epo Attestations 2 Medical Necessity Statement*: per mediicne Coding Level of Care Code Acute Code for Chg Fwd Diagnoses ESRD (end stage renal disease) N18.6
[2024-04-08 08:44] LABS: Partial Thromboplastin Time 40.2 SECONDS (23.9-36.7)
[2024-04-08] MEDS: isosorbide mononitrate ER 60 mg Tablet 120 MG PO (09:01)
[2024-04-08] MEDS: aspirin 81 mg EC Tablet PO (09:01)
[2024-04-08] MEDS: ranolazine (12HR) 500 mg Tablet PO (09:01)
[2024-04-08] MEDS: escitalopram 10 mg Tablet PO (09:02)
[2024-04-08] MEDS: clopidogrel 75 mg Tablet PO (09:02)
[2024-04-08] MEDS: pantoprazole 40 mg SDV IVP ×2 (09:15→22:52)
--- NOTE | 2024-04-08 09:22 | PC.SOCIAL ---
IMM Update Pg. 2 of IMM updated. Copy provided at bedsided. Initialed, dated, and timed copy in chart.
--- NOTE | 2024-04-08 09:57 | CT_ITS ---
WS: [id number] CT ANGIOGRAM CEREBRAL AND CAROTID ARTERIES HISTORY: Loss of vision left eye TECHNIQUE: CT angiogram is performed of the carotid and cerebral arteries. During arterial injection imaging is obtained from the skull vertex to the aortic arch in 1.25 mm imaging. Coronal and sagittal reformats are submitted. Additional multi planar reformats of the carotid and cerebral arteries are submitted, MIP imaging also reviewed. NASCET criteria utilized. [facility] at least one of these dose optimization techniques: automated exposure control; mA and/or kV adjust ment per patient size (includes targeted exams where dose is matched to clinical indication); or iter ative reconstruction. CONTRAST: Omnipaque 350; 100 mL IV. DLP: 998.72 mGy.cm COMPARISON: CT head 06/07/2022. Noncontrast head CT: No acute blood products. No edema. Normal ventricles. Sinuses are clear. Carotid Angiogram: Right carotid: Common carotid artery: Arises normally from the innominate artery. No significant plaque or stenosis. Internal carotid artery: No plaque or stenosis. External carotid artery: Patent. Left carotid: Common carotid artery: Arises normally from the aorta. No significant plaque or stenosis. Internal carotid artery: No plaque or stenosis. External carotid artery: Patent. Right vertebral artery: Unremarkable. Left vertebral artery: Mildly dominant. Intact with no disease. Subclavian arteries: No stenosis or significant abnormality. Upper thorax: Dependent atelectasis and pleural thickening beginning at the RIGHT hilum. Reidentified hilar and mediastinal lymph nodes. Thyroid gland: Normal. Osseous structures: T2 and T3 mild compression deformities. CEREBRAL ANGIOGRAM: Intracranial vertebral arteries: Normal with no significant atherosclerosis. Basilar artery: No significant stenosis or occlusion. No aneurysm. Intracranial Internal carotid arteries: Tiny amount of plaque to the cavernous carotid arteries. No s tenosis or thrombus. Middle cerebral arteries: Normal. No significant positive vessels distally. Anterior cerebral arteries and ACOM: Normal. Posterior cerebral arteries and PCOM's: Normal. Dural venous sinuses are normally enhancing. Mastoid air cells: Normal. Paranasal sinuses: Normal. Calvarium: Normal. CT/CT angio headneck* [id number] IMPRESSION: 1. No cervical carotid artery stenosis or thrombus. 2. No [place] occlusion or aneurysm. No stenosis. 3. No intracranial hemorrhage or edema.
[2024-04-08] MEDS: promethazine 25 mg/mL SDV 1 mL 12.5 MG IM (10:11)
[2024-04-08] MEDS: cloNIDine 0.2 mg/24 hr Patch 1 PATCH TRANSDERMA (10:14)
[2024-04-08] MEDS: iohexol 350 mg/mL 500 mL Btl (per mL) IV (10:46)
[2024-04-08 12:15] LABS: Glucose Point of Care 155 mg/dL (70-110)
--- NOTE | 2024-04-08 13:00 | ECG_ITS ---
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 Measurements Intervals [place] Rate: 83 P: 60 OR: 210 QRS: 1 QRSD: 126 T: 23 QT: 424 QTc: 500 Interpretive Statements SINUS RHYTHM WITH FIRST DEGREE AV BLOCK MODERATE INTRAVENTRICULAR CONDUCTION DELAY [110+ ms QRS DURATION] NONSPECIFIC T-WAVE ABNORMALITY Compared to ECG 04/06/2024 23:41:45 First degree AV block now present Possible ischemia no longer present T-wave abnormality still present Electronically Signed On 04-08-2024 16:44:52 CDT by Gilberto Eugene M.D. [id number]
[2024-04-08] MEDS: nitroglycerin drip 50 MG/250 ML PREMIX IV (13:44)
[2024-04-08 14:43] LABS: Troponin(5th) Baseline 354 ng/L (0-10)
--- NOTE | 2024-04-08 14:49 | PC.NURSE ---
Physician orders: Stop nitro gtt, start nicardipine and double initial start rate.
[2024-04-08] MEDS: hyDRALAzine 20 mg/mL INJ 1 mL IVP (14:58)
[2024-04-08] MEDS: nicardipine 20 MG/200 ML PREMIX 100 MG IV (15:00)
--- NOTE | 2024-04-08 15:00 | ECG_ITS ---
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 Measurements Intervals [place] Rate: 82 P: 59 [place]: 215 QRS: 0 QRSD: 126 T: 22 QT: 421 QTc: 494 Interpretive Statements SINUS RHYTHM WITH FIRST DEGREE AV BLOCK MODERATE INTRAVENTRICULAR CONDUCTION DELAY [110+ ms QRS DURATION] NONSPECIFIC T-WAVE ABNORMALITY Compared to ECG 04/08/2024 14:51:27 No significant changes Electronically Signed On 04-09-2024 01:09:40 CDT by Gilberto Eugene M.D. [id number]
--- NOTE | 2024-04-08 15:17 | P.PN_ITS ---
Subjective 2 Subjective: Seen multiple times in the day. Today morning when seen patient is complaining of right retro-orbital pain along with blurry vision. Patient states the pain and the blurry vision has been ongoing since yesterday but got worsened today. Denies any difficulty in breathing. States chest pain is slightly better for now. Complaining of nausea and vomiting. Patient is not able to take her oral medications. As she was not able to take her oral medications her blood pressure trended up to around 200 systolic for which she was started on clonidine patch, nitro patch and eventually on nitro drip but as blood pressures continue to trend up nitro drip was transitioned over to nicardipine drip after which her blood pressures improved. Today morning because of the nausea patient refused cardiac stress test. Vitals/I&O/Wt Last Vital Signs Temp 97.4 F L 04/08/24 11:17 Pulse 84 04/08/24 11:17 Resp 14 04/08/24 11:17 BP 198/97 04/08/24 11:17 Pulse Ox 93 04/08/24 11:17 O2 Del Method Room Air 04/08/24 11:17 O2 Flow Rate 2 04/07/24 04:00 04/08/24 04/08/24 04/08/24 06:59 14:59 22:59 Intake Total 374.017 / 1582.183 8.550 / 8.550 Balance 374.017 / -819.817 8.550 / 8.550 Weight last 48 hrs Weight 58 kg Weight 58 kg Weight 61 kg Weight 60 kg Physical Exam 2 Const: COMMON NORMALS: patient oriented x3; apparent distress GENERAL APPEARANCE: anxious, lethargic and frail appearing ORIENTATION/CONSCIOUSNESS: Yes awake, Yes oriented to person, Yes oriented to place, Yes oriented to time and Yes lethargic HENMT: COMMON NORMALS: normocephalic HEAD & SCALP: normocephalic Eye: COMMON NORMALS: Equal, round and reactive pupils present and EOMs intact bilaterally PUPIL: Yes Equal, round and reactive pupils present Neck/C-Spine: COMMON NORMALS: no JVD Resp: COMMON NORMALS: normal respiratory effort, No retractions, No use of accessory muscles and clear to auscultation bilaterally AUSCULTATION: clear to auscultation bilaterally Cardio: COMMON NORMALS: no JVD, regular rate, regular rhythm, S1 normal heart sound present and S2 normal heart sound present RATE: regular rate RHYTHM: regular rhythm HEART SOUNDS: S1 normal heart sound present and S2 normal heart sound present GI: COMMON NORMALS: Normal to inspection, nondistended, normoactive bowel sounds present, Soft to palpation and non-tender PALPATION: Yes Soft to palpation Extremity: COMMON NORMALS: no calf tenderness and no pedal edema Neuro: COMMON NORMALS: patient oriented x3, CN's II-XII intact bilaterally and moves all extremities SENSORIUM/ORIENTATION: Yes oriented to person, Yes oriented to place, Yes oriented to time and Yes lethargic Psych: COMMON NORMALS: mental status grossly normal Data 04/08/24 03:28 04/08/24 03:28 Micro: Microbiology 04/06/24 20:00 Blood Culture - Preliminary Blood NEGATIVE TO DATE 04/06/24 19:55 Blood Culture - Preliminary Blood NEGATIVE TO DATE A&P Assessment and plan (1) Chest pain: (2) Hypertensive urgency: (3) Headache, common migraine, intractable, with status migrainosus: (4) Blurry vision, right eye: (5) NSTEMI (non-ST elevated myocardial infarction): (6) Atherosclerotic heart disease of [place] coronary artery with unstable angina pectoris: Qualifiers: [place] vs. transplanted heart: [place] heart Qualified Code(s): I25.110 - Atherosclerotic heart disease of [place] coronary artery with unstable angina pectoris (7) CAD (coronary artery disease): (8) Uncontrolled type 1 diabetes mellitus: Qualifiers: Glycemic state: with hyperglycemia Qualified Code(s): E10.65 - Type 1 diabetes mellitus with hyperglycemia (9) ESRD (end stage renal disease): (10) Hyperlipidemia: Qualifiers: Hyperlipidemia type: mixed hyperlipidemia Qualified Code(s): E78.2 - Mixed hyperlipidemia Plan Chest pain: Atypical. Patient does have significant history of CAD. Appreciate cardiology recommendation. Most recent cardiac angiogram on 03/27. Patient underwent successful PCI to distal RCA. Patient was also found to have distal 20 to 30% stenosis of LAD patent with luminal irregularity and previously placed LCx stent, 100% occlusion of RCA stent with [id number] faint collaterals. For now plan to treat medically because of frequent chest pain and cardiac angiograms in the past. Appreciate troponin cycled. Patient continues to have chest pain and nausea and vomiting today. CTA done to rule out PE. Appreciate echocardiogram which shows normal EF without regional wall motion abnormality, trace MR. Does not show any worsening of EF or new regional wall motion abnormality as compared to recent echocardiogram. Care discussed further with cardiology. Plan was for Lexiscan stress test but patient refusing. Cardiology is recommending patient to have dobutamine stress test if possible. Patient has had heparin drip for over 72 hours. Will discontinue now. Continue with dual antiplatelet therapy with aspirin, Plavix, statin, beta- marii with Coreg 3.125 mg twice daily, increased dose of Imdur to 120 mg oral daily if patient is able to tolerate orally. Continue with Ranexa 500 mg twice daily. Hypertensive urgency: Most likely in setting of unable to take oral medication because of nausea and vomiting. Goal blood pressure less than 140/90 mmHg. Patient did not have improvement in blood pressure on nitro drip or clonidine and nitro patch. Blood pressures improved after starting nicardipine drip. Wean nicardipine drip as per goal blood pressures. Once patient is able to start oral intake can restart home dose of clonidine, lisinopril and Imdur as above. If blood pressures continue to trend up we will try nifedipine. Hydralazine 10 mg every 6 hours as needed for systolic blood pressure more than 160 mmHg. Nausea and vomiting along with headache: Patient does have history of migraine headache in the past. Cannot rule out the symptoms in setting of the same. Tylenol as needed. If needed can try tramadol 50 mg Q6 hourly as needed. Right-sided blurry vision: Could be in setting of migraine. Given uncontrolled blood pressures and history of CAD for now we will try CTA head and neck to rule out stroke. Cannot rule out pain being atypical in possibility of GERD. Continue with Protonix to 40 mg twice daily and Carafate before meals and at bedtime. End-stage renal disease: On hemodialysis. Nephrology on board Type 1 diabetes mellitus: Continue with insulin sliding scale premeals. A1c of 6.7. Full code Renal dialysis diet Protonix for PUD prophylaxis Heparin 5000 every 12 hourly for DVT prophylaxis If patient's blood pressure continues to remain uncontrolled can plan to transition and transfer to ICU. Attestations 2 Medical Necessity Statement*: Requires further hospitalization for management of atypical chest pain in a patient with significant history of CAD, recent cardiac angiogram and PCI, hypertensive urgency, nausea and vomiting along with headache and right-sided blurry vision in setting of migraine, end-stage renal disease on hemodialysis Diagnoses Chest pain R07.9 Hypertensive urgency I16.0 Headache, common migraine, intractable, with status migrainosus G43.011 Blurry vision, right eye H53.8 NSTEMI (non-ST elevated myocardial infarction) I21.4 Atherosclerosis of [place] coronary artery of [place] heart with unstable angina pectoris I25.110 [place] vs. transplanted heart: [place] heart CAD (coronary artery disease) I25.10 Uncontrolled type 1 diabetes mellitus with hyperglycemia E10.65 Glycemic state: with hyperglycemia ESRD (end stage renal disease) N18.6 Mixed hyperlipidemia E78.2 Hyperlipidemia type: mixed hyperlipidemia
[2024-04-08 15:18] LABS: Glucose Point of Care 195 mg/dL (70-110)
[2024-04-08 16:28] LABS: Troponin 5 2HR 350.8 ng/L (0-10); Troponin 5 2HR Delta -3.2 ABS# (0-10)
[2024-04-08 17:11] LABS: Glucose Point of Care 232 mg/dL (70-110)
[2024-04-08] MEDS: heparin 5,000 unit/mL INJ 1 mL 5000 UNIT SUBCUT (18:49)
--- NOTE | 2024-04-08 19:00 | ECG_ITS ---
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 Measurements Intervals [place] Rate: 83 P: 60 [place]: 203 QRS: -3 QRSD: 133 T: 9 QT: 428 QTc: 504 Interpretive Statements SINUS RHYTHM Non diagnostic T wave changes INTRAVENTRICULAR CONDUCTION DELAY [130+ ms QRS DURATION] Compared to ECG 04/08/2024 14:52:22 First degree AV block no longer present T-wave abnormality no longer present Electronically Signed On 04-09-2024 01:10:05 CDT by Gilberto Eugene M.D. [id number]
[2024-04-08] MEDS: sucralfate 1 gm/10 mL Oral Liq UDC PO (20:36)
[2024-04-08] MEDS: lisinopril 20 mg Tablet 40 MG PO (20:37)
[2024-04-08] MEDS: atorvastatin 40 mg Tablet PO (20:37)
[2024-04-08 21:02] LABS: Glucose Point of Care 274 mg/dL (70-110)
[2024-04-08 21:24] LABS: Troponin 5 6HR Delta 10.2 ng/L (0-12)
[2024-04-08 21:35] LABS: Troponin 5 6HR 364.2 ng/L (0-10)
[2024-04-09] VITALS (13 sets, daily range): BP systolic 128–175; BP diastolic 69–93; PULSE 68–110; RESP 11–22; TEMP 36.4–37.3; O2SAT 94–100
[2024-04-09] MEDS: heparin 5,000 unit/mL INJ 1 mL 5000 UNIT SUBCUT (04:32)
[2024-04-09] MEDS: morphine 4 mg/mL SDV 1 mL 1 MG IVP ×4 (04:42→23:47)
[2024-04-09 05:43] LABS: Basophils # 0.1 10^3/uL (0.0-0.1); Basophils % 0.7 %; Hematocrit 28.6 % (36-47); Lymphocytes # 0.9 10^3/uL (0.8-4.8); Lymphocytes % 12.5 %; Mean Corpuscular HGB Conc 32.5 g/dL (30-55); Mean Corpuscular Hemoglobin 30.1 pg (27-33); Mean Corpuscular Volume 92.6 fl (85-98); Mean Platelet Volume 10.8 fL (7.4-10.4); Monocytes # 0.6 10^3/uL (0.2-0.9); Monocytes % 7.4 %; Neutrophils # 5.89 10^3/uL (1.8-7.7); Neutrophils % 78.9 %; Nucleated Red Blood Cells % 0 %; Platelet Count 198 10^3/cmm (157-399); Red Blood Count 3.09 10^6/uL (3.85-5.65); Red Cell Distribution Width 13.9 % (12.1-15.1); White Blood Count 7.46 10^3/uL (3.29-11.43)
[2024-04-09 06:06] LABS: Alanine Aminotransferase 16 U/L (0-33); Alkaline Phosphatase 132 U/L (35-105); Anion Gap 23.6 (5-19); Aspartate Amino Transferase 13 U/L (0-32); Blood Urea Nitrogen 39 mg/dL (6-20); Carbon Dioxide 23 mmol/L (22-29); Chloride 95 mmol/L (98-107); Creatinine Clr Calc Pharmacy 12.0405; Globulin 3.2 g/dL (1.3-4.6); Glomerular Filtration Rate 9.5 mL/min (90-130); Glucose 159 mg/dL (65-115); Osmolality Calculated 297 mOsm/kg (285-295); Phosphorus 6.2 mg/dL (2.5-4.5); Potassium 4.6 mmol/L (3.5-5.1); Sodium 137 mmol/L (136-145); Total Bilirubin 0.3 mg/dL (0.15-1.2); Total Protein 7.2 g/dL (6.6-8.7)
[2024-04-09 06:26] LABS: Glucose Point of Care 188 mg/dL (70-110)
[2024-04-09] MEDS: sevelamer 800 mg Tablet 1600 MG PO (07:28)
[2024-04-09] MEDS: sucralfate 1 gm/10 mL Oral Liq UDC PO ×2 (07:28→11:08)
[2024-04-09] MEDS: aspirin 81 mg EC Tablet PO (08:12)
[2024-04-09] MEDS: ranolazine (12HR) 500 mg Tablet PO (08:12)
[2024-04-09] MEDS: NIFEdipine ER (24 hr) 30 mg Tablet 60 MG PO (08:12)
[2024-04-09] MEDS: clopidogrel 75 mg Tablet PO (08:12)
[2024-04-09] MEDS: escitalopram 10 mg Tablet PO (08:13)
[2024-04-09] MEDS: isosorbide mononitrate ER 60 mg Tablet 120 MG PO (08:13)
--- NOTE | 2024-04-09 08:26 | P.PN_ITS ---
Subjective 2 Subjective: no new c/o Medications: Reviewed: Yes Vitals/I&O/Wt Last Vital Signs Temp 98.7 F 04/09/24 07:26 Pulse 78 04/09/24 07:26 Resp 21 H 04/09/24 07:26 BP 165/90 04/09/24 07:26 Pulse Ox 99 04/09/24 07:26 O2 Del Method Room Air 04/09/24 07:26 O2 Flow Rate 2 04/07/24 04:00 04/08/24 04/09/24 04/09/24 22:59 06:59 14:59 Intake Total 20.833 / 29.383 100 / 129.383 Balance 20.833 / 29.383 100 / 129.383 Weight last 48 hrs Weight 58 kg Weight 58 kg Weight 58 kg Physical Exam 2 Narrative: Lying in bed, anxious Vital signs are stable. She is oxygenating well on nasal cannula oxygen. HEENT normocephalic atraumatic. Neck is supple. Lungs basal dullness, and wheezes Heart regular S1-S2. Abdomen is soft positive bowel sounds. Extremities 1+ edema. Right anterior chest wall permacath. Neuro awake alert oriented x 3 Data 04/10/24 03:20 04/10/24 03:20 A&P Assessment and plan (1) ESRD (end stage renal disease): 38-year-old lady with a past medical history of CAD status post stenting, end- stage renal disease, history of C. difficile, recent history of NSTEMI requiring RCA stenting, type 2 dm. 1. Chest pain as per cardiology. normal echo for stress test today on nitro drip oer cardiology 2. ESRD dialysis - HD per TTS schedule Use phosphorus binders 3. Diabetic control per hospitalist. 4. Blood pressure well-controlled 5. Anemia check iron studies. High iron saturation. continue Epogen. 6. use antibiotics cream at PC exit site Patient was seen and examined with the nurse using A/V equipment for telehealth visit. The patient consents to telehealth and dialysis. Plan As above. will give epo Attestations 2 Medical Necessity Statement*: per wilson Coding Level of Care Code Acute Code for Chg Fwd Diagnoses ESRD (end stage renal disease) N18.6
--- NOTE | 2024-04-09 09:37 | PM.PN ---
Subjective Subjective: Patient had dobutamine stress echo done but did not reach target heart rate. No chest pain at this time. Has nausea Vitals/I&O/Wt Last Vital Signs Temp 98.7 F 04/09/24 07:26 Pulse 78 04/09/24 07:26 Resp 21 H 04/09/24 07:26 BP 165/90 04/09/24 07:26 Pulse Ox 99 04/09/24 07:26 O2 Del Method Room Air 04/09/24 07:26 O2 Flow Rate 2 04/07/24 04:00 04/08/24 04/09/24 04/09/24 22:59 06:59 14:59 Intake Total 20.833 / 29.383 100 / 129.383 Balance 20.833 / 29.383 100 / 129.383 Weight last 48 hrs Weight 127 lb 13.89 oz Weight 127 lb 13.89 oz Weight 127 lb 13.89 oz Physical Exam Narrative: GENERAL: Patient is alert, awake and oriented x3. [] NECK: No jugular vein distension. [] HEENT: No cyanosis. No icterus. No pallor. [] HEART: Regular S1 and S2. No murmur, rub or gallop. [] LUNGS: Clear to auscultate bilaterally. [] CENTRAL NERVOUS SYSTEM: Grossly nonfocal. [] EXTREMITIES: Lower extremities with 1+ edema bilaterally. Data 04/09/24 04:27 04/09/24 04:27 A&P Assessment and plan (1) Hyperlipidemia: Qualifiers: Hyperlipidemia type: mixed hyperlipidemia Qualified Code(s): E78.2 - Mixed hyperlipidemia (2) Chest pain: (3) CAD (coronary artery disease): (4) Atherosclerotic heart disease of [place] coronary artery with other forms of angina pectoris: (5) ESRD (end stage renal disease): Plan Patient has atypical chest pain. Continue medical therapy at this time. Thank you for involving us with care of this patient. We will continue to follow. Please call with question. Attestations Medical Necessity Statement*: Care expected to cross 2 midnights. Coding Level of Care Code Acute Code for Chg Fwd Diagnoses Mixed hyperlipidemia E78.2 Hyperlipidemia type: mixed hyperlipidemia Chest pain R07.9 CAD (coronary artery disease) I25.10 Atherosclerotic heart disease of [place] coronary artery with other forms of angina pectoris I25.118 ESRD (end stage renal disease) N18.6
--- NOTE | 2024-04-09 09:37 | PC.NURSE ---
Patient left unit, [facility], to [facility] for stress test at 0930.
[2024-04-09] MEDS: DOBUTtamine 200 MG in sodium chloride 0.9% 34 ML 9 MG IV (09:48)
[2024-04-09] MEDS: atropine 0.1 mg/mL Syr 10 mL 0.5 MG IVP (09:59)
[2024-04-09] MEDS: metoprolol tartrate 1 mg/1 mL SDV 5 mL 5 MG IVP (10:08)
[2024-04-09] MEDS: ondansetron 2 mg/ML SDV 2 mL 4 MG IVP ×2 (10:10→17:25)
--- NOTE | 2024-04-09 10:48 | PC.NURSE ---
Patient does not want the nitroglycerin patch on at this time. She is not having any chest pain and it makes her headache worse.
--- NOTE | 2024-04-09 10:57 | PC.NURSE ---
Patient returned from stress test to CSU at 1020.
[2024-04-09] MEDS: pantoprazole 40 mg SDV IVP ×2 (11:08→22:19)
--- NOTE | 2024-04-09 11:18 | PC.NURSE ---
Patient left unit for dialysis at 1114.
[2024-04-09 12:00] LABS: Glucose Point of Care 197 mg/dL (70-110)
--- NOTE | 2024-04-09 13:15 | PM.PN ---
Subjective Subjective: No acute events overnight. Patient states she is feeling a lot better. Able to tolerate oral diet today. Was able to take her oral medications. Denies any further blurry vision, headache, dizziness. States chest pain is also resolved for now. Blood pressure is better controlled. Vitals/I&O/Wt Last Vital Signs Temp 98.6 F 04/09/24 11:09 Pulse 70 04/09/24 11:09 Resp 22 H 04/09/24 11:09 BP 136/69 04/09/24 11:09 Pulse Ox 97 04/09/24 11:09 O2 Del Method Room Air 04/09/24 11:09 O2 Flow Rate 2 04/07/24 04:00 04/08/24 04/09/24 04/09/24 22:59 06:59 14:59 Intake Total 20.833 / 29.383 100 / 129.383 5.867 / 5.867 Balance 20.833 / 29.383 100 / 129.383 5.867 / 5.867 Weight last 48 hrs Weight 58 kg Weight 58 kg Weight 58 kg Physical Exam Const: COMMON NORMALS: patient oriented x3; apparent distress GENERAL APPEARANCE: anxious, lethargic and frail appearing ORIENTATION/CONSCIOUSNESS: Yes awake, Yes oriented to person, Yes oriented to place, Yes oriented to time and Yes lethargic HENMT: COMMON NORMALS: normocephalic HEAD & SCALP: normocephalic Eye: COMMON NORMALS: Equal, round and reactive pupils present and EOMs intact bilaterally PUPIL: Yes Equal, round and reactive pupils present Neck/C-Spine: COMMON NORMALS: no JVD Resp: COMMON NORMALS: normal respiratory effort, No retractions, No use of accessory muscles and clear to auscultation bilaterally AUSCULTATION: clear to auscultation bilaterally Cardio: COMMON NORMALS: no JVD, regular rate, regular rhythm, S1 normal heart sound present and S2 normal heart sound present RATE: regular rate RHYTHM: regular rhythm HEART SOUNDS: S1 normal heart sound present and S2 normal heart sound present GI: COMMON NORMALS: Normal to inspection, nondistended, normoactive bowel sounds present, Soft to palpation and non-tender PALPATION: Yes Soft to palpation Extremity: COMMON NORMALS: no calf tenderness and no pedal edema Neuro: COMMON NORMALS: patient oriented x3, CN's II-XII intact bilaterally and moves all extremities SENSORIUM/ORIENTATION: Yes oriented to person, Yes oriented to place, Yes oriented to time and Yes lethargic Psych: COMMON NORMALS: mental status grossly normal Data 04/09/24 04:27 04/09/24 04:27 A&P Assessment and plan (1) Chest pain: (2) Hypertensive urgency: (3) Headache, common migraine, intractable, with status migrainosus: (4) Blurry vision, right eye: (5) NSTEMI (non-ST elevated myocardial infarction): (6) Atherosclerotic heart disease of [place] coronary artery with unstable angina pectoris: Qualifiers: [place] vs. transplanted heart: [place] heart Qualified Code(s): I25.110 - Atherosclerotic heart disease of [place] coronary artery with unstable angina pectoris (7) CAD (coronary artery disease): (8) Uncontrolled type 1 diabetes mellitus: Qualifiers: Glycemic state: with hyperglycemia Qualified Code(s): E10.65 - Type 1 diabetes mellitus with hyperglycemia (9) ESRD (end stage renal disease): (10) Hyperlipidemia: Qualifiers: Hyperlipidemia type: mixed hyperlipidemia Qualified Code(s): E78.2 - Mixed hyperlipidemia Plan Chest pain: Atypical. Patient does have significant history of CAD. Appreciate cardiology recommendation. Most recent cardiac angiogram on 03/27. Patient underwent successful PCI to distal RCA. Patient was also found to have distal 20 to 30% stenosis of LAD patent with luminal irregularity and previously placed LCx stent, 100% occlusion of RCA stent with [id number] faint collaterals. For now plan to treat medically because of frequent chest pain and cardiac angiograms in the past. Appreciate troponin cycled. Patient continues to have chest pain and nausea and vomiting today. CTA done to rule out PE. Appreciate echocardiogram which shows normal EF without regional wall motion abnormality, trace MR. Does not show any worsening of EF or new regional wall motion abnormality as compared to recent echocardiogram. Care discussed further with cardiology. Plan was for Lexiscan stress test but patient refusing. Cardiology is recommending patient to have dobutamine stress test if possible. Patient has had heparin drip for over 72 hours. Will discontinue now. Continue with dual antiplatelet therapy with aspirin, Plavix, statin, beta-marii with Coreg 3.125 mg twice daily, increased dose of Imdur to 120 mg oral daily if patient is able to tolerate orally. Continue with Ranexa 500 mg twice daily. Hypertensive urgency: Most likely in setting of unable to take oral medication because of nausea and vomiting. Goal blood pressure less than 140/90 mmHg. Patient did not have improvement in blood pressure on nitro drip or clonidine and nitro patch. Blood pressures improved after starting nicardipine drip. Wean nicardipine drip as per goal blood pressures. Once patient is able to start oral intake can restart home dose of clonidine, lisinopril and Imdur as above. If blood pressures continue to trend up we will try nifedipine. Hydralazine 10 mg every 6 hours as needed for systolic blood pressure more than 160 mmHg. Nausea and vomiting along with headache: Patient does have history of migraine headache in the past. Cannot rule out the symptoms in setting of the same. Tylenol as needed. If needed can try tramadol 50 mg Q6 hourly as needed. Right-sided blurry vision: Could be in setting of migraine. Given uncontrolled blood pressures and history of CAD for now we will try CTA head and neck to rule out stroke. Cannot rule out pain being atypical in possibility of GERD. Continue with Protonix to 40 mg twice daily and Carafate before meals and at bedtime. End-stage renal disease: On hemodialysis. Nephrology on board Type 1 diabetes mellitus: Continue with insulin sliding scale premeals. A1c of 6.7. Full code Renal dialysis diet Protonix for PUD prophylaxis Heparin 5000 every 12 hourly for DVT prophylaxis If patient's blood pressure continues to remain uncontrolled can plan to transition and transfer to ICU. Plan for the day: Headache/nausea and vomiting along with the blurry vision most likely in setting of complex migraine. CT head and neck negative. Patient will tolerate oral diet. Blood pressure is better controlled. Goal blood pressure less than 140/90 MHE. Continue with lisinopril, high-dose Imdur, nifedipine. Will restart beta-marii after dobutamine stress test. Plan for dobutamine stress test today. Will follow-up recommendation. Dialysis today. Attestations Medical Necessity Statement*: Require further hospitalization for management of chest pain while ACS is ruled out with dobutamine stress test, uncontrolled hypertension in a patient with end-stage renal disease on hemodialysis Diagnoses Chest pain R07.9 Hypertensive urgency I16.0 Headache, common migraine, intractable, with status migrainosus G43.011 Blurry vision, right eye H53.8 NSTEMI (non-ST elevated myocardial infarction) I21.4 Atherosclerosis of [place] coronary artery of [place] heart with unstable angina pectoris I25.110 [place] vs. transplanted heart: [place] heart CAD (coronary artery disease) I25.10 Uncontrolled type 1 diabetes mellitus with hyperglycemia E10.65 Glycemic state: with hyperglycemia ESRD (end stage renal disease) N18.6 Mixed hyperlipidemia E78.2 Hyperlipidemia type: mixed hyperlipidemia
--- NOTE | 2024-04-09 14:00 | USCV_ITS ---
Dobutamine Stress Echo Donita Aguilar Age: 38 Gender: F : 1985 Exam Date: 04/09/2024 09:48 Ordering Phys: Ruy Edgar MD Technologist: Exam Location: [facility] [place] Indication: unstable angina Rhythm: Sinus Patient History: Atypical angina Cardiac Medications: Medications in past 24 hours: Contrast: Total Dose (mL): Stress Results Protocol: Peak Dose (???g/kg/min): Duration (min:sec): 14:05 Atropine:(mg) Target HR: 156 Double Product: [id number] Resting HR: 75 Resting BP: 158 / 97 Peak HR: 85 Peak BP: 175 / 92 Max Predicted HR: 183 46 % Max Predicted HR Stress Summary: The patient's target heart rate was not achieved. BP Response: Normal Reason for Termination: The patients target heart rate was not achieved Cardiac Symptoms: Chest pain ECG Analysis Resting EKG: Stress EKG: Arrhythmia: MEASUREMENTS (Male/Female) Normal Values FINDINGS Baseline Left ventricle size is normal, left ventricular ejection fraction appeared to be normal 55%, there appeared to be septal bounce otherwise no significant wall motion abnormality noted at the baseline. At the low and peak dobutamine dose No new wall motion abnormality noted, augmentation of cavity was good Recovery: Uneventful: No wall motion abnormality noted CONCLUSIONS Echocardiographic portion of dobutamine stress echo was negative for ischemia. EKG segment will be documented separately. Austin Gallegos MD (Electronically Signed) Final Date: 10 April 2024 00:23 S
--- NOTE | 2024-04-09 16:11 | PC.NURSE ---
Patient returned to unit from dialysis at 1445.
[2024-04-09 17:03] LABS: Glucose Point of Care 110 mg/dL (70-110)
--- NOTE | 2024-04-09 17:32 | PC.NURSE ---
Nursing staff enters room to give her her 1700 and 1800 medications and patient is sitting on the edge of the bed stating I am in a lot of pain and feels like I am going to throw up. Nursing gave her pain medication and antinausea medication.
[2024-04-09] MEDS: ALPRAZolam 0.5 mg Tablet PO (17:53)
--- NOTE | 2024-04-09 18:21 | PC.NURSE ---
Provider is updated that patient is complaining of chest pressure. She had been given morphine and zofran for her headache and nausea 20 minutes prior. Patient is dry heaving. Provider ordered xanax 0.5mg. Order was place. Patient is given the xanax. Nursing staff assessed patient every 5 minutes after, she is resting in the bed with the lights out and a cold washcloth on her forehead. She is refusing her 1700 and 1800 medications.
[2024-04-09 20:20] LABS: Glucose Point of Care 181 mg/dL (70-110)
--- NOTE | 2024-04-09 21:40 | PC.NURSE ---
Patient is refusing 2100 medications, MD notified.
[2024-04-09] MEDS: promethazine 25 mg/mL SDV 1 mL 12.5 MG IM (22:18)
[2024-04-10] VITALS (13 sets, daily range): BP systolic 113–139; BP diastolic 63–83; PULSE 69–75; RESP 13–20; TEMP 36.6–37.2; O2SAT 94–100
[2024-04-10 04:18] LABS: Basophils # 0.1 10^3/uL (0.0-0.1); Lymphocytes # 0.7 10^3/uL (0.8-4.8); Mean Corpuscular HGB Conc 32.5 g/dL (30-55); Mean Corpuscular Hemoglobin 29.8 pg (27-33); Mean Corpuscular Volume 91.7 fl (85-98); Mean Platelet Volume 10.2 fL (7.4-10.4); Monocytes # 0.4 10^3/uL (0.2-0.9); Monocytes % 5.6 %; Neutrophils # 5.82 10^3/uL (1.8-7.7); Neutrophils % 83.1 %; Nucleated Red Blood Cells % 0 %; Platelet Count 236 10^3/cmm (157-399); Red Blood Count 3.49 10^6/uL (3.85-5.65); Red Cell Distribution Width 13.8 % (12.1-15.1)
[2024-04-10 04:40] LABS: Alanine Aminotransferase 16 U/L (0-33); Albumin Level 4.3 g/dL (3.5-5.2); Alkaline Phosphatase 139 U/L (35-105); Anion Gap 22.3 (5-19); Aspartate Amino Transferase 19 U/L (0-32); Blood Urea Nitrogen 26 mg/dL (6-20); Calcium 9.1 mg/dL (8.5-10.5); Carbon Dioxide 23 mmol/L (22-29); Chloride 95 mmol/L (98-107); Creatinine Clr Calc Pharmacy 16.6521; Globulin 3.7 g/dL (1.3-4.6); Glomerular Filtration Rate 14.2 mL/min (90-130); Glucose 222 mg/dL (65-115); Osmolality Calculated 294 mOsm/kg (285-295); Phosphorus 4.8 mg/dL (2.5-4.5); Potassium 4.3 mmol/L (3.5-5.1); Sodium 136 mmol/L (136-145); Total Bilirubin 0.4 mg/dL (0.15-1.2)
[2024-04-10 06:35] LABS: Glucose Point of Care 215 mg/dL (70-110)
[2024-04-10] MEDS: morphine 4 mg/mL SDV 1 mL 1 MG IVP ×3 (07:35→20:46)
[2024-04-10] MEDS: promethazine 25 mg/mL SDV 1 mL 12.5 MG IM ×3 (07:35→20:49)
[2024-04-10] MEDS: sucralfate 1 gm/10 mL Oral Liq UDC PO ×3 (07:45→20:46)
[2024-04-10] MEDS: insulin lispro 100 unit/1 mL SUBCUT (08:43)
[2024-04-10] MEDS: NIFEdipine ER (24 hr) 30 mg Tablet 60 MG PO (08:43)
[2024-04-10] MEDS: isosorbide mononitrate ER 60 mg Tablet 120 MG PO (08:45)
[2024-04-10] MEDS: ranolazine (12HR) 500 mg Tablet PO ×2 (08:45→17:58)
[2024-04-10] MEDS: aspirin 81 mg EC Tablet PO (08:45)
[2024-04-10] MEDS: clopidogrel 75 mg Tablet PO (08:45)
[2024-04-10] MEDS: sevelamer 800 mg Tablet 1600 MG PO ×2 (08:45→17:59)
[2024-04-10] MEDS: escitalopram 10 mg Tablet PO (08:45)
--- NOTE | 2024-04-10 10:44 | PC.SOCIAL ---
IMM Update Pg. 2 of IMM updated and copy left at bedside.
[2024-04-10 11:47] LABS: Glucose Point of Care 135 mg/dL (70-110)
[2024-04-10] MEDS: pantoprazole 40 mg SDV IVP ×2 (11:51→22:49)
[2024-04-10 11:52] LABS: Erythrocyte Sedimentation Rate 35 mm/hr (0-15)
--- NOTE | 2024-04-10 12:03 | P.PN_ITS ---
Subjective 2 Subjective: No acute events overnight. Patient did refuse some of her medications last night. Today morning patient seen laying comfortably in bed. Denies any nausea, vomiting currently. Did have nausea today morning. Chest pain so far has resolved. Blood pressure is better controlled. Vitals/I&O/Wt Last Vital Signs Temp 97.8 F 04/10/24 07:46 Pulse 72 04/10/24 08:02 Resp 16 04/10/24 08:02 BP 139/73 04/10/24 07:46 Pulse Ox 97 04/10/24 08:02 O2 Del Method Room Air 04/10/24 08:02 O2 Flow Rate 2 04/07/24 04:00 04/09/24 04/10/24 04/10/24 22:59 06:59 14:59 Intake Total 500 / 505.867 Output Total 2994 / 2994 Balance -2494 / -2488.133 Weight last 48 hrs Weight 53 kg Weight 55 kg Weight 58 kg Physical Exam 2 Const: COMMON NORMALS: patient oriented x3; apparent distress GENERAL APPEARANCE: anxious, lethargic and frail appearing ORIENTATION/CONSCIOUSNESS: Yes awake, Yes oriented to person, Yes oriented to place, Yes oriented to time and Yes lethargic HENMT: COMMON NORMALS: normocephalic HEAD & SCALP: normocephalic Eye: COMMON NORMALS: Equal, round and reactive pupils present and EOMs intact bilaterally PUPIL: Yes Equal, round and reactive pupils present Neck/C-Spine: COMMON NORMALS: no JVD Resp: COMMON NORMALS: normal respiratory effort, No retractions, No use of accessory muscles and clear to auscultation bilaterally AUSCULTATION: clear to auscultation bilaterally Cardio: COMMON NORMALS: no JVD, regular rate, regular rhythm, S1 normal heart sound present and S2 normal heart sound present RATE: regular rate RHYTHM: regular rhythm HEART SOUNDS: S1 normal heart sound present and S2 normal heart sound present GI: COMMON NORMALS: Normal to inspection, nondistended, normoactive bowel sounds present, Soft to palpation and non-tender PALPATION: Yes Soft to palpation Extremity: COMMON NORMALS: no calf tenderness and no pedal edema Neuro: COMMON NORMALS: patient oriented x3, CN's II-XII intact bilaterally and moves all extremities SENSORIUM/ORIENTATION: Yes oriented to person, Yes oriented to place, Yes oriented to time and Yes lethargic Psych: COMMON NORMALS: mental status grossly normal Data 04/10/24 03:20 04/10/24 03:20 A&P Assessment and plan (1) Chest pain: (2) Hypertensive urgency: (3) Headache, common migraine, intractable, with status migrainosus: (4) Blurry vision, right eye: (5) NSTEMI (non-ST elevated myocardial infarction): (6) Atherosclerotic heart disease of [place] coronary artery with unstable angina pectoris: Qualifiers: [place] vs. transplanted heart: [place] heart Qualified Code(s): I25.110 - Atherosclerotic heart disease of [place] coronary artery with unstable angina pectoris (7) CAD (coronary artery disease): (8) Uncontrolled type 1 diabetes mellitus: Qualifiers: Glycemic state: with hyperglycemia Qualified Code(s): E10.65 - Type 1 diabetes mellitus with hyperglycemia (9) ESRD (end stage renal disease): (10) Hyperlipidemia: Qualifiers: Hyperlipidemia type: mixed hyperlipidemia Qualified Code(s): E78.2 - Mixed hyperlipidemia Plan Chest pain: Atypical. Patient does have significant history of CAD. Appreciate cardiology recommendation. Most recent cardiac angiogram on 03/27. Patient underwent successful PCI to distal RCA. Patient was also found to have distal 20 to 30% stenosis of LAD patent with luminal irregularity and previously placed LCx stent, 100% occlusion of RCA stent with [id number] faint collaterals. For now plan to treat medically because of frequent chest pain and cardiac angiograms in the past. Appreciate troponin cycled. Patient continues to have chest pain and nausea and vomiting today. CTA done to rule out PE. Appreciate echocardiogram which shows normal EF without regional wall motion abnormality, trace MR. Does not show any worsening of EF or new regional wall motion abnormality as compared to recent echocardiogram. CRP at checked earlier in the admission negative. Though still cannot rule out pericarditis given incisional disease and recent stenting. Recheck CRP and ESR. Care discussed further with cardiology. Plan was for Lexiscan stress test but patient refusing. Awaiting results for dobutamine stress test. Though I been told patient did not achieve the heart rate so most likely nonconclusive. Finished 72 hours of heparin drip. Continue with dual antiplatelet therapy with aspirin, Plavix, statin, will restart metoprolol 25 mg twice daily., increased dose of Imdur to 120 mg oral daily if patient is able to tolerate orally. Continue with Ranexa 500 mg twice daily. Hypertensive urgency: Most likely in setting of unable to take oral medication because of nausea and vomiting. Goal blood pressure less than 140/90 mmHg. Patient did not have improvement in blood pressure on nitro drip or clonidine and nitro patch. Nicardipine drip weaned off. Blood pressure better controlled. Continue with Imdur 120 mg oral daily, nifedipine 60 mg oral daily, lisinopril 40 mg nightly. Uptitrate blood pressure medications as needed. Hydralazine 10 mg every 6 hours as needed for systolic blood pressure more than 160 mmHg. Nausea and vomiting along with headache: Patient does have history of migraine headache in the past. Cannot rule out the symptoms in setting of the same. Tylenol as needed. If needed can try tramadol 50 mg Q6 hourly as needed. Right-sided blurry vision: Could be in setting of migraine. Given uncontrolled blood pressures and history of CAD for now we will try CTA head and neck to rule out stroke. Cannot rule out pain being atypical in possibility of GERD. Continue with Protonix to 40 mg twice daily and Carafate before meals and at bedtime. End-stage renal disease: On hemodialysis. Nephrology on board Type 1 diabetes mellitus: Continue with insulin sliding scale premeals. A1c of 6.7. Full code Renal dialysis diet Protonix for PUD prophylaxis Heparin 5000 every 12 hourly for DVT prophylaxis If patient's blood pressure continues to remain uncontrolled can plan to transition and transfer to ICU. Discharge plan: Can plan to discharge in next 24 hours once cleared by cardiology team. Most likely will discharge on adjusted antihypertensive, possible colchicine Attestations 2 Medical Necessity Statement*: Requires further hospitalization for management of atypical chest pain in a patient with end-stage renal disease on hemodialysis, post PCI, recent non-ST elevation CA with in-stent restenosis with multiple collaterals Diagnoses Chest pain R07.9 Hypertensive urgency I16.0 Headache, common migraine, intractable, with status migrainosus G43.011 Blurry vision, right eye H53.8 NSTEMI (non-ST elevated myocardial infarction) I21.4 Atherosclerosis of [place] coronary artery of [place] heart with unstable angina pectoris I25.110 [place] vs. transplanted heart: [place] heart CAD (coronary artery disease) I25.10 Uncontrolled type 1 diabetes mellitus with hyperglycemia E10.65 Glycemic state: with hyperglycemia ESRD (end stage renal disease) N18.6 Mixed hyperlipidemia E78.2 Hyperlipidemia type: mixed hyperlipidemia
[2024-04-10 12:10] LABS: C Reactive Protein 3.2 mg/L (0.0-4.9)
--- NOTE | 2024-04-10 14:18 | P.PN_ITS ---
Subjective 2 Subjective: s/p dobutamine stress test Medications: Reviewed: Yes Vitals/I&O/Wt Last Vital Signs Temp 98.0 F 04/10/24 12:00 Pulse 70 04/10/24 12:00 Resp 15 04/10/24 12:00 BP 125/76 04/10/24 12:00 Pulse Ox 100 04/10/24 12:00 O2 Del Method Room Air 04/10/24 12:00 O2 Flow Rate 2 04/07/24 04:00 04/09/24 04/10/24 04/10/24 22:59 06:59 14:59 Intake Total 500 / 505.867 Output Total 2994 / 2994 Balance -2494 / -2488.133 Weight last 48 hrs Weight 53 kg Weight 55 kg Weight 58 kg Physical Exam 2 Narrative: Lying in bed, anxious Vital signs are stable. She is oxygenating well on nasal cannula oxygen. HEENT normocephalic atraumatic. Neck is supple. Lungs basal dullness, and wheezes Heart regular S1-S2. Abdomen is soft positive bowel sounds. Extremities 1+ edema. Right anterior chest wall permacath. Neuro awake alert oriented x 3 Data 04/10/24 03:20 04/10/24 03:20 A&P Assessment and plan (1) ESRD (end stage renal disease): 38-year-old lady with a past medical history of CAD status post stenting, end- stage renal disease, history of C. difficile, recent history of NSTEMI requiring RCA stenting, type 2 dm. 1. Chest pain as per cardiology. normal echo s/p stress test 2. ESRD dialysis - HD per TTS schedule Use phosphorus binders 3. Diabetic control per hospitalist. 4. Blood pressure- s/p nitrodrip , titrating meds 5. Anemia check iron studies. High iron saturation. continue Epogen. 6. use antibiotics cream at PC exit site Patient was seen and examined with the nurse using A/V equipment for telehealth visit. The patient consents to telehealth and dialysis. Plan As above. will give epo Attestations 2 Medical Necessity Statement*: per wilson Coding Level of Care Code Acute Code for Chg Fwd Diagnoses ESRD (end stage renal disease) N18.6
[2024-04-10 17:18] LABS: Glucose Point of Care 142 mg/dL (70-110)
[2024-04-10] MEDS: heparin 5,000 unit/mL INJ 1 mL 5000 UNIT SUBCUT (17:58)
--- NOTE | 2024-04-10 18:02 | P.PN_ITS ---
Subjective 2 Subjective: Denies any chest pain except headache, echocardiographic portion of the dobutamine stress test did not reveal ischemia. Medications: Reviewed: Yes Medication Review Details: Current Medications Acetaminophen (Acetaminophen 325 Mg Tablet) 650 mg PO Q6H PRN PRN Reason: Mild/Mod Pain Or Temp >/= 101 Albuterol/Ipratropium (Ipratropium-Albuterol 3 Ml Neb) 3 ml INHALATION Q4H PRN PRN Reason: SHORTNESS OF BREATH Aminophylline (Aminophylline 25 Mg/Ml Sdv 10 Ml) 25 mg IVP Q2M PRN PRN Reason: see dose instructions Stop: 04/08/24 05:49 Aspirin (Aspirin 81 Mg Ec Tablet) 81 mg PO DAILY [facility] Last Admin: 04/06/24 08:35 Dose: 81 mg Atorvastatin Calcium (Atorvastatin 40 Mg Tablet) 40 mg PO BEDTIME [facility] Last Admin: 04/06/24 21:31 Dose: 40 mg Bumetanide (Bumetanide 1 Mg Tablet) 1 mg PO DAILY [facility] Last Admin: 04/06/24 08:36 Dose: 1 mg Carvedilol (Carvedilol 3.125 Mg Tablet) 3.125 mg PO BIDWM [facility] Last Admin: 04/06/24 17:43 Dose: 3.125 mg Clopidogrel Bisulfate (Clopidogrel 75 Mg Tablet) 75 mg PO DAILY [facility] Last Admin: 04/06/24 08:35 Dose: 75 mg Escitalopram Oxalate (Escitalopram 10 Mg Tablet) 10 mg PO DAILY [facility] Last Admin: 04/06/24 08:36 Dose: 10 mg Glucagon (Glucagon 1 Mg/Ml Kit 1 Ml) 1 mg IM ONCE PRN; Protocol PRN Reason: Adult Acute Hypoglycemia Nursing Prot. Heparin Sodium (Porcine) (Heparin 5,000 Unit/Ml Inj 1 Ml) 0 unit IVP PRN PRN; Protocol PRN Reason: Heparin Weight Based Protocol -Subsequent Bolus Last Admin: 04/06/24 00:09 Dose: 1,200 unit Heparin Sodium/Sodium Chloride (Heparin Drip) 25,000 unit in 500 mls @ 0 mls/hr IV CONT [facility]; Protocol Last Titration: 04/07/24 03:50 Dose: 16.76 unit/kg/hr, 19 mls/hr Dextrose (D5w) 500 mls @ 0 mls/hr IV ONCE PRN; Protocol PRN Reason: Adult Acute Hypoglycemia Prot Dextrose (D10w) 125 mls @ 750 mls/hr IV PRN PRN; Protocol PRN Reason: Adult Acute Hypoglycemia Nursing Protocol Dextrose (D10w) 250 mls @ 1,000 mls/hr IV PRN PRN; Protocol PRN Reason: Adult Acute Hypoglycemia Nursing Protocol Nitroglycerin/Dextrose (Nitroglycerin Drip) 50 mg in 250 mls @ 0 mls/hr IV .Q0M [facility]; Protocol Last Titration: 04/07/24 00:32 Dose: 40 mcg/min, 12 mls/hr Insulin Human Lispro (Insulin Lispro 100 Unit/1 Ml) 0 unit SUBCUT TIDWM [facility]; Protocol Last Admin: 04/06/24 17:42 Dose: Not Given Isosorbide Mononitrate (Isosorbide Mononitrate Er 30 Mg Tablet) 60 mg PO DAILY [facility] Lisinopril (Lisinopril 20 Mg Tablet) 40 mg PO BEDTIME [facility] Last Admin: 04/06/24 21:31 Dose: 40 mg Morphine Sulfate (Morphine 4 Mg/Ml Sdv 1 Ml) 2 mg IVP Q4H PRN PRN Reason: SEVERE PAIN Last Admin: 04/07/24 08:42 Dose: 2 mg Nitroglycerin (Nitroglycerin 0.4 Mg Sublingual Tablet) 0.4 mg SUBLINGUAL Q5M PRN PRN Reason: CHEST PAIN Stop: 04/08/24 05:49 Ondansetron HCl (Ondansetron 2 Mg/Ml Sdv 2 Ml) 4 mg IVP Q2M PRN PRN Reason: NAUSEA Pantoprazole Sodium (Pantoprazole 40 Mg Sdv) 40 mg IVP Q12H [facility] Last Admin: 04/06/24 21:31 Dose: 40 mg Ranolazine (Ranolazine (12hr) 500 Mg Tablet) 500 mg PO BID [facility] Sevelamer Carbonate (Sevelamer 800 Mg Tablet) 1,600 mg PO TIDWM [facility] Last Admin: 04/06/24 17:43 Dose: 1,600 mg Sucralfate (Sucralfate 1 Gm/10 Ml Oral Liq Udc) 1 gm PO AC&BEDTIME [facility] Last Admin: 04/07/24 05:34 Dose: 1 gm Vitals/I&O/Wt Last Vital Signs Temp 98.0 F 04/10/24 16:00 Pulse 70 04/10/24 16:00 Resp 17 04/10/24 16:00 BP 125/67 04/10/24 16:00 Pulse Ox 98 04/10/24 16:00 O2 Del Method Room Air 04/10/24 16:00 O2 Flow Rate 2 04/07/24 04:00 Weight last 48 hrs Weight 116 lb 13.52 oz Weight 121 lb 4.068 oz Weight 127 lb 13.89 oz Physical Exam 2 Const: OTHER: Patient is alert awake oriented x 3 HEART: Regular S1 and S2. No murmur, rub or gallop. LUNGS: Clear to auscultate bilaterally. CENTRAL NERVOUS SYSTEM: Grossly nonfocal. EXTREMITIES: Lower extremities with out edema bilaterally. Data 04/10/24 03:20 04/10/24 03:20 A&P Assessment and plan (1) Hyperlipidemia: Continue statin Qualifiers: Hyperlipidemia type: mixed hyperlipidemia Qualified Code(s): E78.2 - Mixed hyperlipidemia (2) Chest pain: Atypical chest pain, most likely musculoskeletal cannot rule out uremic pericarditis may can try colchicine. From a cardiovascular perspective do not recommend at this point left heart catheterization given patient atypical nature of chest pain and recurrent left heart catheterization along with negative dobutamine echo portion of the stress test. (3) CAD (coronary artery disease): As above (4) Atherosclerotic heart disease of [place] coronary artery with other forms of angina pectoris: As above (5) ESRD (end stage renal disease): As per medicine Plan Patient has atypical chest pain. Continue medical therapy at this time. Thank you for involving us with care of this patient. We will continue to follow. Please call with question. Attestations 2 Medical Necessity Statement*: From cardiovascular perspective patient can be discharged home Coding Level of Care Code Acute Code for Chg Fwd Diagnoses Mixed hyperlipidemia E78.2 Hyperlipidemia type: mixed hyperlipidemia Chest pain R07.9 CAD (coronary artery disease) I25.10 Atherosclerotic heart disease of [place] coronary artery with other forms of angina pectoris I25.118 ESRD (end stage renal disease) N18.6
[2024-04-10] MEDS: atorvastatin 40 mg Tablet PO (20:45)
[2024-04-10] MEDS: lisinopril 20 mg Tablet 40 MG PO (20:45)
[2024-04-10 20:49] LABS: Glucose Point of Care 146 mg/dL (70-110)
[2024-04-11] VITALS (9 sets, daily range): BP systolic 110–164; BP diastolic 66–92; PULSE 72–79; RESP 12–20; TEMP 36.6–37; O2SAT 96–100
[2024-04-11] MEDS: heparin 5,000 unit/mL INJ 1 mL 5000 UNIT SUBCUT (05:17)
[2024-04-11] MEDS: sucralfate 1 gm/10 mL Oral Liq UDC PO (06:12)
[2024-04-11] MEDS: morphine 4 mg/mL SDV 1 mL 1 MG IVP (06:17)
[2024-04-11] MEDS: promethazine 25 mg/mL SDV 1 mL 12.5 MG IM (06:18)
[2024-04-11 06:40] LABS: Glucose Point of Care 150 mg/dL (70-110)
[2024-04-11] MEDS: isosorbide mononitrate ER 60 mg Tablet 120 MG PO (08:20)
[2024-04-11] MEDS: aspirin 81 mg EC Tablet PO (08:20)
[2024-04-11] MEDS: NIFEdipine ER (24 hr) 30 mg Tablet 60 MG PO (08:20)
[2024-04-11] MEDS: ranolazine (12HR) 500 mg Tablet PO (08:20)
[2024-04-11] MEDS: escitalopram 10 mg Tablet PO (08:21)
[2024-04-11] MEDS: clopidogrel 75 mg Tablet PO (08:21)
[2024-04-11] MEDS: sevelamer 800 mg Tablet 1600 MG PO (08:21)
--- NOTE | 2024-04-11 10:10 | PM.DCS ---
Discharge Providers Date of Admission: 04/04/24 17:36 Date of Discharge: April 11, 2024 Attending Provider at Admission: Shola Carrera MD Attending Provider at Discharge: Ruy Edgar MD Consults: Telemetry nephrology Cardiology: Dr. Gallegos/Dr. 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 transplanted heart: [place] heart Qualified Code(s): I25.110 - Atherosclerotic heart disease of [place] coronary artery with unstable angina pectoris (11) Blurry vision, right eye: Status: Acute Reason for Visit Reason for Visit: chest pain Brief History: History as per HPI: Donita Aguilar is a 38 year old female With a past medical history of CAD status post stenting, end-stage renal disease, history of C. difficile, recent history of NSTEMI requiring RCA stenting, type 2 dm, who presents [facility] for chest pain. Patient was seen she is alert oriented x 3, following all commands currently chest pain-free she is adamant that she was compliant with her aspirin, Plavix, statin, Coreg, she took all her medications this morning, she tells me that she was at dialysis, she was 2 hours into dialysis she started developing anterior chest discomfort, no nausea, no vomiting does report intermittent shortness of breath, no lightheaded, dizziness no diaphoresis, they had to stop dialysis early. Currently she is chest pain-free, no nausea, no vomiting, no shortness of breath, , She denies any calf pain, calf swelling, no hemoptysis, no recent travel. Hospital Course Hospital Course Patient was admitted for further evaluation and management of chest pain in setting of CAD, recent cardiac angiogram which she was found to have in-stent restenosis of 2 vessels with collaterals and underwent PCI to RCA. Her troponins on admission were elevated but remained flat. She was started on treatment as per ACS with heparin drip. Nephrology and cardiology was consulted. She underwent cardiac echocardiogram which showed normal EF without regional wall motion normality. Patient's hospitalization was prolonged and complicated. Patient continued to have chest pain during hospitalization for which she required nitro drip. Because of recurrent chest pain there were multiple tries for her to have a cardiac stress test but she could not tolerate because of nausea or vomiting and declined any further stress test. Eventually she underwent dobutamine stress test which was unequivocal as patient could not reach her target heart rate though was thought negative. Complete report is currently not available. Possibility of pericarditis was also entertained though her ESR and CRP remained stable. During hospitalization she was found to have uncontrolled hypertension for which her antihypertensives were adjusted. On 04/08 patient had episode of right retro-orbital eye pain along with blurry peripheral vision. CTA head and neck was done which ruled out stroke. Patient symptoms improved after controlling of her blood pressures. Her headache was thought to be in setting of complicated migraine. Patient's blood pressures have been stable over last 48 hours and she has been remained chest pain-free. Prior to transfer there was a concern for mild hallucination which is thought to be in setting of her dose of Xanax in setting of end-stage renal disease which resolved after dialysis though CT head and neck was done in which now there was a concern for layering high density material along the right posterior right globe concerning for lens dislocation which was most likely mixed on prior CTA head and neck as per the radiologist. New findings were discussed in detail with ophthalmology on-call who advised patient to follow-up as an outpatient in their office at the earliest, did not advise transfer to a higher center as no immediate intervention is needed. New findings were discussed in detail with patient and patient's mother. Advised for following up as an outpatient at ophthalmology was discussed in detail with both of them and they were agreeable. She has been discharged in stable condition with advised to take her antihypertensive as per schedule, follow-up with dialysis as per schedule and to make an appointment with ophthalmology office at the earliest early next week. Phone number has been provided for the same to them. Patient is declining any changes in vision recently and thinks her vision is at baseline. Physical Exam Const: COMMON NORMALS: patient oriented x3; apparent distress GENERAL APPEARANCE: anxious, lethargic and frail appearing ORIENTATION/CONSCIOUSNESS: Yes awake, Yes oriented to person, Yes oriented to place, Yes oriented to time and Yes lethargic HENMT: COMMON NORMALS: normocephalic HEAD & SCALP: normocephalic Eye: COMMON NORMALS: Equal, round and reactive pupils present and EOMs intact bilaterally PUPIL: Yes Equal, round and reactive pupils present Neck/C-Spine: COMMON NORMALS: no JVD Resp: COMMON NORMALS: normal respiratory effort, No retractions, No use of accessory muscles and clear to auscultation bilaterally AUSCULTATION: clear to auscultation bilaterally Cardio: COMMON NORMALS: no JVD, regular rate, regular rhythm, S1 normal heart sound present and S2 normal heart sound present RATE: regular rate RHYTHM: regular rhythm HEART SOUNDS: S1 normal heart sound present and S2 normal heart sound present GI: COMMON NORMALS: Normal to inspection, nondistended, normoactive bowel sounds present, Soft to palpation and non-tender PALPATION: Yes Soft to palpation Extremity: COMMON NORMALS: no calf tenderness and no pedal edema Neuro: COMMON NORMALS: patient oriented x3, CN's II-XII intact bilaterally and moves all extremities SENSORIUM/ORIENTATION: Yes oriented to person, Yes oriented to place, Yes oriented to time and Yes lethargic Psych: COMMON NORMALS: mental status grossly normal Discharge Data Studies Completed and Pending Completed Studies During Hospitalization Category Date Time Status CTA chest [CT angio chest PE protcl 50183] Routine Cat Scan 04/06/24 10:09 Completed CTA head neck [CT angio headneck* [id number]/57510] Stat Cat Scan 04/08/24 09:57 Completed XR chest 1V portable [id number] Stat Exams 04/04/24 14:54 Completed CV. echo limited [id number] Routine Ultrasound 04/05/24 08:10 Completed Pending at discharge Category Date Time Status CA dobutamine stress w bryn Routine Exams 04/08/24 07:59 Stop Req CA dobutamine stress w bryn Routine Exams 04/09/24 06:32 Ordered Cardiac Stress Test MIBI [Sestamibi Stress Test Request Exams 04/08/24 05:00 Stop Req ] Routine Sestamibi Stress Test Request Routine Exams 04/06/24 16:39 Stop Req Blood Culture Stat Lab 04/06/24 19:55 Results Body Fluid Culture Routine Lab 04/06/24 07:08 [place] [id number] Routine Ultrasound 04/09/24 14:00 Taken Radiology Impressions Chest X-Ray 04/04/24 14:54 IMPRESSION: 1. No acute findings. 2. Right central line in the SVC Chest CTA 04/06/24 10:09 IMPRESSION: 1. No pulmonary embolism. 2. Soft tissue anasarca. 3. Axillary, mediastinal and hilar lymphadenopathy. Similar to prior studies. May be reactive. 4. LEFT heart enlargement. 5. Partial LEFT lower lobectomy. Head/Neck CTA 04/08/24 09:57 IMPRESSION: 1. No cervical carotid artery stenosis or thrombus. 2. No [place] occlusion or aneurysm. No stenosis. 3. No intracranial hemorrhage or edema. Laboratory Results WBC 7.00 10^3/uL (3.29-11.43) 04/10/24 03:20 RBC 3.49 10^6/uL (3.85-5.65) L 04/10/24 03:20 Hgb 10.40 g/dL (11.27-16.99) L 04/10/24 03:20 Hct 32.0 % (36-47) L 04/10/24 03:20 MCV 91.7 fl (85-98) 04/10/24 03:20 MCH 29.8 pg (27-33) 04/10/24 03:20 MCHC 32.5 g/dL (30-55) 04/10/24 03:20 RDW 13.8 % (12.1-15.1) 04/10/24 03:20 Plt Count 236 10^3/cmm (157-399) 04/10/24 03:20 MPV 10.2 fL (7.4-10.4) 04/10/24 03:20 Neut % (Auto) 83.1 % 04/10/24 03:20 Lymph % (Auto) 10.0 % 04/10/24 03:20 [place] % (Auto) 5.6 % 04/10/24 03:20 Eos % (Auto) 0.0 % 04/10/24 03:20 Baso % (Auto) 1.0 % 04/10/24 03:20 Neut # (Auto) 5.82 10^3/uL (1.8-7.7) 04/10/24 03:20 Lymph # (Auto) 0.7 10^3/uL (0.8-4.8) L 04/10/24 03:20 [place] # (Auto) 0.4 10^3/uL (0.2-0.9) 04/10/24 03:20 Eos # (Auto) 0.0 10^3/uL (0.0-0.8) 04/10/24 03:20 Baso # (Auto) 0.1 10^3/uL (0.0-0.1) 04/10/24 03:20 Nucleated RBC % (auto) 0 % 04/10/24 03:20 Nucleated RBCs # 0.0 /100WBC 04/10/24 03:20 ESR 35 mm/hr (0-15) H 04/10/24 03:20 APTT 40.2 SECONDS (23.9-36.7) H 04/08/24 08:09 Sodium 136 mmol/L (136-145) 04/10/24 03:20 Potassium 4.3 mmol/L (3.5-5.1) 04/10/24 03:20 Chloride 95 mmol/L (98-107) L 04/10/24 03:20 Carbon Dioxide 23 mmol/L (22-29) 04/10/24 03:20 Anion Gap 22.3 (5-19) H 04/10/24 03:20 BUN 26 mg/dL (6-20) H 04/10/24 03:20 Creatinine 3.6 mg/dL (0.5-0.9) H 04/10/24 03:20 GFR Calculation 14.2 mL/min (90-130) L 04/10/24 03:20 Glucose 222 mg/dL (65-115) H 04/10/24 03:20 POC Glucose 150 mg/dL (70-110) H 04/11/24 06:16 Calculated Osmolality 294 mOsm/kg (285-295) 04/10/24 03:20 Calcium 9.1 mg/dL (8.5-10.5) 04/10/24 03:20 Phosphorus 4.8 mg/dL (2.5-4.5) H 04/10/24 03:20 Magnesium 1.9 mg/dL (1.7-2.3) 04/08/24 03:28 Iron 95 ug/dL (37-145) 04/06/24 05:44 TIBC 196 mcg/dl 04/06/24 05:44 % Saturation 48.4 % (20-50) 04/06/24 05:44 Unsat Iron Binding 101 ug/dL (112-347) L 04/06/24 05:44 Ferritin 761 ng/mL (15-150) H 04/06/24 05:44 Total Bilirubin 0.4 mg/dL (0.15-1.2) 04/10/24 03:20 AST 19 U/L (0-32) 04/10/24 03:20 ALT 16 U/L (0-33) 04/10/24 03:20 Alkaline Phosphatase 139 U/L (35-105) H 04/10/24 03:20 Creatine Kinase 62 U/L (26-192) 04/06/24 05:44 Troponin T 5th Gen ng/L 252 ng/L (0-10) H* 04/06/24 05:44 Troponin T Baseline 354 ng/L (0-10) H* 04/08/24 14:00 Troponin T 120 Minute 350.8 ng/L (0-10) H 04/08/24 15:30 Delta Troponin T -3.2 ABS# (0-10) L 04/08/24 15:30 Troponin T Hi Sens 6Hr 364.2 ng/L (0-10) H 04/08/24 20:45 Troponin T Hi Sens 6Hr Delta 10.2 ng/L (0-12) 04/08/24 20:45 C-Reactive Protein 3.2 mg/L (0.0-4.9) 04/10/24 03:20 NT-Pro-B Natriuret Pep > 30843 pg/mL (0-125) H 04/04/24 17:52 Total Protein 8.0 g/dL (6.6-8.7) 04/10/24 03:20 Albumin 4.3 g/dL (3.5-5.2) 04/10/24 03:20 Globulin 3.7 g/dL (1.3-4.6) 04/10/24 03:20 Triglycerides 117 mg/dL (0-150) 04/04/24 16:11 Cholesterol 99 mg/dL (0-200) 04/04/24 16:11 LDL Cholesterol, Calc 16 mg/dL (50-129) L 04/04/24 16:11 HDL Cholesterol 60 mg/dL (60-100) 04/04/24 16:11 LDL/HDL Ratio 0.27 RATIO (0.00-3.22) 04/04/24 16:11 Cholesterol/HDL Ratio 1.65 mg/dL (0.0-4.40) 04/04/24 16:11 Procalcitonin 0.22 ng/mL (0-0.5) 04/04/24 17:52 TSH 4.24 uIU/mL (0.27-4.20) H 04/04/24 16:11 PTH Intact 143.1 pg/mL (15-65) H 04/06/24 05:44 Calcium (PTH Intact) 8.4 mg/dL (8.5-10.5) L 04/06/24 05:44 Adenovirus (PCR) Not detected (NOT DETECT) 04/04/24 23:25 C. pneumoniae DNA (PCR) Not detected (NOT DETECT) 04/04/24 23:25 Coronavirus 229E (PCR) Not detected (NOT DETECT) 04/04/24 23:25 Hep Bs Antigen Non-reactive (Nonreactive) 04/05/24 01:51 Hep Bs Antibody 8.3 (11.5-1000) L 04/05/24 01:51 Hepatitis C Antibody Non-reactive (Nonreactive) 04/05/24 01:51 Human Metapneumovir PCR Not detected (NOT DETECT) 04/04/24 23:25 Influenza A (H1) PCR Not detected (NOT DETECT) 04/04/24 23:25 Influ A (H1/09) PCR Not detected (NOT DETECT) 04/04/24 23:25 Influenza A (H3) PCR Not detected (NOT DETECT) 04/04/24 23:25 Influenza Type A (PCR) Not detected (NOT DETECT) 04/04/24 23:25 Influenza Type B (PCR) Not detected (NOT DETECT) 04/04/24 23:25 M. pneumoniae (PCR) Not detected (NOT DETECT) 04/04/24 23:25 Parainfluenza 1 (PCR) Not detected (NOT DETECT) 04/04/24 23:25 Parainfluenza 2 (PCR) Not detected (NOT DETECT) 04/04/24 23:25 Parainfluenza 3 (PCR) Not detected (NOT DETECT) 04/04/24 23:25 Parainfluenza 4 (PCR) Not detected (NOT DETECT) 04/04/24 23:25 RSV Type A (PCR) Not detected (NOT DETECT) 04/04/24 23:25 RSV Type B (PCR) Not detected (NOT DETECT) 04/04/24 23:25 Entero/Rhino (PCR) Not detected (NOT DETECT) 04/04/24 23:25 SARS-CoV-2 (PCR) Not detected (NOT DETECT) 04/04/24 23:25 Vitals Last Vital Signs Temp 98.4 F 04/11/24 07:18 Pulse 73 04/11/24 08:11 Resp 16 04/11/24 08:11 BP 160/92 04/11/24 07:18 Pulse Ox 98 04/11/24 08:11 O2 Del Method Room Air 04/11/24 08:11 O2 Flow Rate 2 04/07/24 04:00 Discharge Plan Discharge Patient Disposition: Home Condition: Stable Prescriptions: New nifedipine 30 mg Tablet Extended Release 24hr 60 mg PO DAILY 30 Days Qty: 60 0RF isosorbide mononitrate 60 mg Tablet Extended Release 24 Hr 120 mg PO DAILY 30 Days Qty: 60 0RF ranolazine 500 mg Tablet Extended Release 12 Hr 500 mg PO BID 30 Days Qty: 60 0RF ibuprofen 200 mg Tablet 400 mg PO TID Qty: 30 0RF Continued (DME) Dexcom G6 Yield Loss Inspector Misc See Rx Instructions .Route Qty: 1 0RF Rx Instructions: As directed (DME) Dexcom G6 Sensor Device See Rx Instructions .Route Qty: 3 0RF Rx Instructions: As directed (DME) Dexcom G6 Transmitter Device See Rx Instructions .Route Qty: 1 0RF Rx Instructions: As directed clopidogrel 75 mg Tablet 75 mg PO DAILY 30 Days Qty: 30 0RF carvedilol 3.125 mg Tablet 3.125 mg PO BID 30 Days Qty: 60 0RF nitroglycerin 0.4 mg Tablet, Sublingual 0.4 mg sublingual Q5M PRN (Reason: Chest Pain) 30 Days Qty: 30 0RF atorvastatin 40 mg tablet 40 mg PO BEDTIME 30 Days Qty: 30 0RF aspirin 81 mg tablet,delayed release (DR/EC) 81 mg PO QAM 30 Days Qty: 30 0RF insulin glargine [Lantus Solostar U-100 Insulin] 100 unit/mL (3 mL) Insulin Pen 5 unit SUBCUT QPM fluticasone furoate-vilanterol [Breo Ellipta] 100-25 mcg/dose Blister With Device 1 inh INHALATION DAILY PRN (Reason: Shortness Of Breath) sevelamer carbonate 800 mg Tablet 800 mg PO TID Qty: 90 0RF clonidine HCl 0.1 mg tablet See Rx Instructions .ROUTE .COMPLEX PRN (Reason: Blood Pressure) Rx Instructions: TAKE 1 TABLET IF SYSTOLIC BLOOD PRESSURE IS GREATER THAN 160, REPEAT ONCE IF SYSTOLIC BLOOD PRESSURE IS STILL OVER 160 AFTER 1 HOUR. lisinopril 40 mg tablet 40 mg PO BEDTIME gabapentin 100 mg Capsule 100 mg PO TID Changed escitalopram oxalate [Lexapro] 10 mg Tablet 20 mg PO DAILY Qty: 60 0RF insulin aspart U-100 [Novolog FlexPen U-100 Insulin] 100 unit/mL (3 mL) insulin pen 5 unit SUBCUT TID Qty: 15 0RF Discontinued bumetanide 1 mg tablet 1 mg PO DAILY Rx Instructions: ON NON-DIALYSIS DAYS. Discharge Orders: Discharge Order (Routine); Ordered 04/11/24 Ordered By: Ryu Edgar Referrals: Elizabeth Dougherty FNP [Primary Care Provider] - 04/15/24 8:20 am Alexis Navas MD [Physician] - (Please call office for appointment Saturday) Discharge Diet: As Directed Discharge Activity: Resume usual activity and Increase activity as tolerated Patient Instructions: Isosorbide Dinitrate (By mouth), Nifedipine (By mouth), Ranolazine (By mouth), Headache - Migraine (Adult), Angina (DC), Dialysis Nutrition Plan (DC), Chronic Hypertension (DC), Hemodialysis (DC), Opioid Safety Activity Restrictions/Additional Instructions: Please continue take your antihypertensive as prescribed. New medications include Imdur 120 mg and nifedipine 60 mg daily along with ranolazine 500 mg twice daily. Please continue with dialysis as per sessions. Please make appointment to see ophthalmology at the earliest. Discharge Attestations Time Spent in Discharge Care*: greater than 30 min Status at Discharge: Cognitive status at discharge: cognitively intact, Behavioral status at discharge: cooperative and independent in ADL's, Quality Metrics Clinical Quality Measures [ No reported AMI, CVA or VTE this stay] Coding Level of Care Code 33432 Total time (in minutes) for Discharge: 60 Diagnoses Mixed hyperlipidemia E78.2 Hyperlipidemia type: mixed hyperlipidemia Chest pain R07.9 CAD (coronary artery disease) I25.10 Atherosclerotic heart disease of [place] coronary artery with other forms of angina pectoris I25.118 ESRD (end stage renal disease) N18.6 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 transplanted heart: [place] heart Blurry vision, right eye H53.8
--- NOTE | 2024-04-11 10:55 | PM.PN ---
Subjective Subjective: Denies any chest pain Medications: Reviewed: Yes Medication Review Details: Current Medications Acetaminophen (Acetaminophen 325 Mg Tablet) 650 mg PO Q6H PRN PRN Reason: Mild/Mod Pain Or Temp >/= 101 Albuterol/Ipratropium (Ipratropium-Albuterol 3 Ml Neb) 3 ml INHALATION Q4H PRN PRN Reason: SHORTNESS OF BREATH Aminophylline (Aminophylline 25 Mg/Ml Sdv 10 Ml) 25 mg IVP Q2M PRN PRN Reason: see dose instructions Stop: 04/08/24 05:49 Aspirin (Aspirin 81 Mg Ec Tablet) 81 mg PO DAILY [facility] Last Admin: 04/06/24 08:35 Dose: 81 mg Atorvastatin Calcium (Atorvastatin 40 Mg Tablet) 40 mg PO BEDTIME [facility] Last Admin: 04/06/24 21:31 Dose: 40 mg Bumetanide (Bumetanide 1 Mg Tablet) 1 mg PO DAILY [facility] Last Admin: 04/06/24 08:36 Dose: 1 mg Carvedilol (Carvedilol 3.125 Mg Tablet) 3.125 mg PO BIDWM [facility] Last Admin: 04/06/24 17:43 Dose: 3.125 mg Clopidogrel Bisulfate (Clopidogrel 75 Mg Tablet) 75 mg PO DAILY [facility] Last Admin: 04/06/24 08:35 Dose: 75 mg Escitalopram Oxalate (Escitalopram 10 Mg Tablet) 10 mg PO DAILY [facility] Last Admin: 04/06/24 08:36 Dose: 10 mg Glucagon (Glucagon 1 Mg/Ml Kit 1 Ml) 1 mg IM ONCE PRN; Protocol PRN Reason: Adult Acute Hypoglycemia Nursing Prot. Heparin Sodium (Porcine) (Heparin 5,000 Unit/Ml Inj 1 Ml) 0 unit IVP PRN PRN; Protocol PRN Reason: Heparin Weight Based Protocol -Subsequent Bolus Last Admin: 04/06/24 00:09 Dose: 1,200 unit Heparin Sodium/Sodium Chloride (Heparin Drip) 25,000 unit in 500 mls @ 0 mls/hr IV CONT SHAY; Protocol Last Titration: 04/07/24 03:50 Dose: 16.76 unit/kg/hr, 19 mls/hr Dextrose (D5w) 500 mls @ 0 mls/hr IV ONCE PRN; Protocol PRN Reason: Adult Acute Hypoglycemia Prot Dextrose (D10w) 125 mls @ 750 mls/hr IV PRN PRN; Protocol PRN Reason: Adult Acute Hypoglycemia Nursing Protocol Dextrose (D10w) 250 mls @ 1,000 mls/hr IV PRN PRN; Protocol PRN Reason: Adult Acute Hypoglycemia Nursing Protocol Nitroglycerin/Dextrose (Nitroglycerin Drip) 50 mg in 250 mls @ 0 mls/hr IV .Q0M [facility]; Protocol Last Titration: 04/07/24 00:32 Dose: 40 mcg/min, 12 mls/hr Insulin Human Lispro (Insulin Lispro 100 Unit/1 Ml) 0 unit SUBCUT TIDWM [facility]; Protocol Last Admin: 04/06/24 17:42 Dose: Not Given Isosorbide Mononitrate (Isosorbide Mononitrate Er 30 Mg Tablet) 60 mg PO DAILY [facility] Lisinopril (Lisinopril 20 Mg Tablet) 40 mg PO BEDTIME [facility] Last Admin: 04/06/24 21:31 Dose: 40 mg Morphine Sulfate (Morphine 4 Mg/Ml Sdv 1 Ml) 2 mg IVP Q4H PRN PRN Reason: SEVERE PAIN Last Admin: 04/07/24 08:42 Dose: 2 mg Nitroglycerin (Nitroglycerin 0.4 Mg Sublingual Tablet) 0.4 mg SUBLINGUAL Q5M PRN PRN Reason: CHEST PAIN Stop: 04/08/24 05:49 Ondansetron HCl (Ondansetron 2 Mg/Ml Sdv 2 Ml) 4 mg IVP Q2M PRN PRN Reason: NAUSEA Pantoprazole Sodium (Pantoprazole 40 Mg Sdv) 40 mg IVP Q12H [facility] Last Admin: 04/06/24 21:31 Dose: 40 mg Ranolazine (Ranolazine (12hr) 500 Mg Tablet) 500 mg PO BID [facility] Sevelamer Carbonate (Sevelamer 800 Mg Tablet) 1,600 mg PO TIDWM [facility] Last Admin: 04/06/24 17:43 Dose: 1,600 mg Sucralfate (Sucralfate 1 Gm/10 Ml Oral Liq Udc) 1 gm PO AC&BEDTIME [facility] Last Admin: 04/07/24 05:34 Dose: 1 gm Vitals/I&O/Wt Last Vital Signs Temp 98.4 F 04/11/24 07:18 Pulse 73 04/11/24 08:11 Resp 16 04/11/24 08:11 BP 160/92 04/11/24 07:18 Pulse Ox 98 04/11/24 08:11 O2 Del Method Room Air 04/11/24 08:11 O2 Flow Rate 2 04/07/24 04:00 04/10/24 04/11/24 04/11/24 22:59 06:59 14:59 Intake Total 450 / 450 Balance 450 / 450 Weight last 48 hrs Weight 117 lb 15.157 oz Weight 116 lb 13.52 oz Weight 121 lb 4.068 oz Physical Exam Const: OTHER: Patient is alert awake oriented x 3, laying in the bed HEART: Regular S1 and S2. No murmur, rub or gallop. LUNGS: Clear to auscultate bilaterally. CENTRAL NERVOUS SYSTEM: Grossly nonfocal. EXTREMITIES: Lower extremities with out edema bilaterally. Data 04/10/24 03:20 04/10/24 03:20 A&P Assessment and plan (1) Hyperlipidemia: Continue statin Qualifiers: Hyperlipidemia type: mixed hyperlipidemia Qualified Code(s): E78.2 - Mixed hyperlipidemia (2) Chest pain: On today's visit patient denies any chest pain, continue current medical management. May can add colchicine at the time of discharge. From a cardiovascular perspective patient can be discharged home. (3) CAD (coronary artery disease): As above no more chest pain. Continue current management (4) Atherosclerotic heart disease of [place] coronary artery with other forms of angina pectoris: As above (5) ESRD (end stage renal disease): Stable continue as per medicine colleagues management Plan Patient has atypical chest pain. Continue medical therapy at this time. Thank you for involving us with care of this patient. We will continue to follow. Please call with question. Attestations Medical Necessity Statement*: Patient will be discharged home today Coding Level of Care Code Acute Code for Chg Fwd Diagnoses Mixed hyperlipidemia E78.2 Hyperlipidemia type: mixed hyperlipidemia Chest pain R07.9 CAD (coronary artery disease) I25.10 Atherosclerotic heart disease of [place] coronary artery with other forms of angina pectoris I25.118 ESRD (end stage renal disease) N18.6
--- NOTE | 2024-04-11 11:16 | PC.NURSE ---
Patient refused to take her late morning medications: nitro patch, carafate, protonix, ibuprofen, and colchicine.
--- NOTE | 2024-04-11 11:17 | P.PN_ITS ---
Subjective 2 Subjective: no new c/o Medications: Reviewed: Yes Vitals/I&O/Wt Last Vital Signs Temp 98.4 F 04/11/24 17:45 Pulse 74 04/11/24 17:45 Resp 18 04/11/24 17:45 BP 110/75 04/11/24 17:45 Pulse Ox 100 04/11/24 17:17 O2 Del Method Room Air 04/11/24 16:00 O2 Flow Rate 2 04/07/24 04:00 04/11/24 04/11/24 04/12/24 14:59 22:59 06:59 Intake Total 500 / 500 Output Total 1612 / 1612 Balance -1112 / -1112 Weight last 48 hrs Weight 51 kg Weight 53.5 kg Weight 53 kg Physical Exam 2 Narrative: Lying in bed, anxious Vital signs are stable. She is oxygenating well on nasal cannula oxygen. HEENT normocephalic atraumatic. Neck is supple. Lungs basal dullness, and wheezes Heart regular S1-S2. Abdomen is soft positive bowel sounds. Extremities 1+ edema. Right anterior chest wall permacath. Neuro awake alert oriented x 3 Data 04/11/24 13:34 04/11/24 13:34 Micro: Microbiology 04/06/24 20:00 Blood Culture - Final Blood NO GROWTH AFTER 5 DAYS 04/06/24 19:55 Blood Culture - Final Blood NO GROWTH AFTER 5 DAYS A&P Assessment and plan (1) ESRD (end stage renal disease): 38-year-old lady with a past medical history of CAD status post stenting, end- stage renal disease, history of C. difficile, recent history of NSTEMI requiring RCA stenting, type 2 dm. 1. Chest pain as per cardiology. normal echo s/p stress test 2. ESRD dialysis - HD per TTS schedule Use phosphorus binders 3. Diabetic control per hospitalist. 4. Blood pressure- s/p nitrodrip , titrating meds 5. Anemia check iron studies. High iron saturation. continue Epogen. 6. use antibiotics cream at PC exit site Patient was seen and examined with the nurse using A/V equipment for telehealth visit. The patient consents to telehealth and dialysis. Plan As above. will give epo Attestations 2 Medical Necessity Statement*: per wilson Coding Level of Care Code Acute Code for Chg Fwd Diagnoses ESRD (end stage renal disease) N18.6
[2024-04-11 11:55] LABS: Glucose Point of Care 174 mg/dL (70-110)
--- NOTE | 2024-04-11 11:55 | PC.NURSE ---
Patient left the unit for dialysis at 1115.
--- NOTE | 2024-04-11 12:19 | CTR_ITS ---
PROCEDURE INFORMATION: Exam: CT Head Without Contrast Exam date and time: 04/11/2024 3:10 PM Age: 38 years old Clinical indication: Other: Hallucination TECHNIQUE: Imaging protocol: Computed tomography of the head without contrast. Radiation optimization: All CT scans at this facility use at least one of these dose optimization techniques: automated exposure control; mA and/or kV adjustment per patient size (includes targeted exams where dose is matched to clinical indication); or iterative reconstruction. COMPARISON: CT angio headneck* [id number] 04/08/2024 10:34 AM RADIATION DOSE METRICS: Total DLP (mGy-cm): 991.58 FINDINGS: Brain: Normal. No hemorrhage. Unremarkable white matter. No mass effect. Cerebral ventricles: No ventriculomegaly. Paranasal sinuses: Visualized sinuses are unremarkable. No fluid levels. Mastoid air cells: Visualized mastoid air cells are well aerated. Orbital cavities: Layering high density material observed along the right posterior right globe concerning for lens dislocation, new from 06/07/2022. Bones: Unremarkable. No acute fracture. Soft tissues: Unremarkable. CT/CT head wo con* [id number] IMPRESSION: 1. Layering high density material observed along the right posterior right globe concerning for lens dislocation, new from 06/07/2022. 2. No acute intracranial abnormality THIS REPORT CONTAINS FINDINGS THAT MAY BE CRITICAL TO PATIENT CARE. The findings were verbally communicated via telephone conference with DAMIR Sprague at 4:42 PM CDT on 04/11/2024. The findings were acknowledged and understood.
[2024-04-11 13:49] LABS: Basophils # 0.1 10^3/uL (0.0-0.1); Eosinophils # 0.1 10^3/uL (0.0-0.8); Eosinophils % 0.7 %; Lymphocytes # 1.3 10^3/uL (0.8-4.8); Lymphocytes % 18.5 %; Mean Corpuscular HGB Conc 32.4 g/dL (30-55); Mean Corpuscular Hemoglobin 29.6 pg (27-33); Mean Corpuscular Volume 91.4 fl (85-98); Mean Platelet Volume 9.6 fL (7.4-10.4); Monocytes # 0.6 10^3/uL (0.2-0.9); Monocytes % 8.2 %; Neutrophils # 5.05 10^3/uL (1.8-7.7); Neutrophils % 71.3 %; Nucleated Red Blood Cells % 0 %; Platelet Count 230 10^3/cmm (157-399); Red Blood Count 3.61 10^6/uL (3.85-5.65); Red Cell Distribution Width 13.7 % (12.1-15.1); White Blood Count 7.08 10^3/uL (3.29-11.43)
[2024-04-11 14:06] LABS: Alanine Aminotransferase 13 U/L (0-33); Albumin Level 4.2 g/dL (3.5-5.2); Alkaline Phosphatase 128 U/L (35-105); Aspartate Amino Transferase 17 U/L (0-32); Blood Urea Nitrogen 18 mg/dL (6-20); Calcium 8.8 mg/dL (8.5-10.5); Carbon Dioxide 25 mmol/L (22-29); Chloride 96 mmol/L (98-107); Creatinine Clr Calc Pharmacy 26.9172; Globulin 3.7 g/dL (1.3-4.6); Glomerular Filtration Rate 25.1 mL/min (90-130); Glucose 124 mg/dL (65-115); Osmolality Calculated 285 mOsm/kg (285-295); Sodium 136 mmol/L (136-145); Total Bilirubin 0.3 mg/dL (0.15-1.2); Total Protein 7.9 g/dL (6.6-8.7)
[2024-04-11 16:20] LABS: Glucose Point of Care 122 mg/dL (70-110)
--- NOTE | 2024-04-11 17:49 | PC.HD ---
On transport to dialysis room pt noted to be having a conversation, not on phone and not with nurse. In dialysis room pt noted to be having auditory, visual, and tactile hallucinations (see dialysis flow sheet) but is oriented to person, place, and time. Dr Edgar and Dr Khurram drummond. Pt knows that she's been having wierd dreams and throughout dialysis she seemed to be dreaming while awake, and seemed to accept that the people and things she was seeing and hearing were not actually there when told that they weren't, but then continued to respond to the people and things she was seeing/hearing.
--- NOTE | 2024-04-11 18:38 | PC.NURSE ---
Patients discharge was delayed due to patient in dialysis, CThead and waiting for report.
== END 2024-04-11 17:46 | disposition home or self-care (01) | DRG 280 ==
LOC: ER 17:46 → CSU 18:23
PROVIDERS: Internal Medicine; Internal Medicine Nephrology; Admitting Provider Family Medicine; Emergency Provider Family Medicine; PCP Nurse Practitioner Family; Visit Provider Student in an Organized Health Care Education/Training Program
DX: I25.118 Atherosclerotic heart disease of native coronary artery with other forms of angina pectoris (principal); N18.6 End stage renal disease; I21.4 Non-ST elevation (NSTEMI) myocardial infarction; I12.0 Hypertensive chronic kidney disease with stage 5 chronic kidney disease or end stage renal disease; E10.22 Type 1 diabetes mellitus with diabetic chronic kidney disease; E10.65 Type 1 diabetes mellitus with hyperglycemia; Z99.2 Dependence on renal dialysis; E10.43 Type 1 diabetes mellitus with diabetic autonomic (poly)neuropathy; K31.84 Gastroparesis; E10.40 Type 1 diabetes mellitus with diabetic neuropathy, unspecified; F41.9 Anxiety disorder, unspecified; I25.2 Old myocardial infarction; J44.9 Chronic obstructive pulmonary disease, unspecified; E78.2 Mixed hyperlipidemia; I27.20 Pulmonary hypertension, unspecified; N31.9 Neuromuscular dysfunction of bladder, unspecified; D63.1 Anemia in chronic kidney disease; H27.111 Subluxation of lens, right eye; I16.0 Hypertensive urgency; G43.011 Migraine without aura, intractable, with status migrainosus; Z79.82 Long term (current) use of aspirin; Z79.02 Long term (current) use of antithrombotics/antiplatelets; Z79.4 Long term (current) use of insulin; Z11.52 Encounter for screening for COVID-19; Z87.01 Personal history of pneumonia (recurrent); Z87.440 Personal history of urinary (tract) infections; Z86.14 Personal history of Methicillin resistant Staphylococcus aureus infection; Z86.16 Personal history of COVID-19; Z87.891 Personal history of nicotine dependence; Z89.421 Acquired absence of other right toe(s); Z90.2 Acquired absence of lung [part of]; Z83.3 Family history of diabetes mellitus; Z82.49 Family history of ischemic heart disease and other diseases of the circulatory system; Z80.6 Family history of leukemia
CPT/HCPCS: 36415; 36416; 70450; 70496; 70498; 71045; 71275; 80048; 80053; 80061; 82310; 82550; 82728; 82962; 83540; 83550; 83735; 83880; 83970; 84100; 84145; 84443; 84484; 85025; 85651; 85730; 86140; 86706; 86803; 87040; 87340; 87486; 87581; 87633; 90935; 93005; 93017; 93308; 93350; 94664; 96372; 96375; 96376; 99285; J0360; J0461; J1250; J1644; J1815; J2270; J2405; J2470; J2550; J2785; J3490; J7050; Q3014

== ENCOUNTER 2024-04-12 19:14 | Inpatient (IN) | payer MEDICARE, MEDICAID, SELFPAY ==
[2024-04-12] VITALS (7 sets, daily range): BP systolic 112–190; BP diastolic 79–114; PULSE 62–114; RESP 12–18; TEMP 36.4–37.2; O2SAT 98–100
--- NOTE | 2024-04-12 19:34 | CTR_ITS ---
PROCEDURE INFORMATION: Exam: CT Head Without Contrast Exam date and time: 04/12/2024 7:53 PM Age: 38 years old Clinical indication: Altered mental status/memory loss; Patient HX: Hallucinations with lethargy; Additional info: Encephalopathy, altered mental status TECHNIQUE: Imaging protocol: Computed tomography of the head without contrast. Radiation optimization: All CT scans at this facility use at least one of these dose optimization techniques: automated exposure control; mA and/or kV adjustment per patient size (includes targeted exams where dose is matched to clinical indication); or iterative reconstruction. COMPARISON: CT head wo con* [id number] 04/11/2024 3:10 PM RADIATION DOSE METRICS: Total DLP (mGy-cm): 1006.38 FINDINGS: Brain: No intracranial mass or mass effect. No intracranial hemorrhage is seen. Normal florentino-white matter differentiation throughout. No areas of sulcal effacement are noted. Cerebral ventricles: The ventricles and other CSF spaces are symmetric and normal for age. Paranasal sinuses: There is normal aeration of the visualized paranasal sinuses. Mastoid air cells: There is no fluid in the mastoid air cells. Orbital cavities: There is layering increased density dependently within the right globe as on recent prior comparison concerning for globe injury Bones: No fracture is seen. Soft tissues: Superficial soft tissues are unremarkable. CT/CT head wo con* [id number] IMPRESSION: 1. No evidence of acute intracranial pathology. 2. Nonspecific layering density within the right globe concerning for globe injury/hemorrhage. This appears unchanged from recent prior comparison.
--- NOTE | 2024-04-12 19:36 | XRR_ITS ---
PROCEDURE INFORMATION: Exam: XR Chest Exam date and time: 04/12/2024 7:46 PM Age: 38 years old Clinical indication: Prior surgery; Surgery date: 6+ months; Surgery type: RT dialysis cath; Patient HX: Weakness; Chest pain; Hallucination TECHNIQUE: Imaging protocol: Radiologic exam of the chest. Views: 1 view. COMPARISON: CT angio chest PE protcl [id number] 04/06/2024 2:20 PM FINDINGS: Tubes, catheters and devices: Large bore right central line with tip in the right atrium. Lungs: No pulmonary consolidation is seen. Postsurgical changes to the left hilum and lung from prior lobectomy. Pleural spaces: No pneumothorax . Small left pleural effusion. Heart/Mediastinum: Mild cardiomegaly. Coronary stents are visualized. Bones/joints: Regional osseous structures are unremarkable. XR/XR chest 1V portable [id number] IMPRESSION: No radiographically apparent acute cardiopulmonary disease. Chronic postsurgical changes and stable position of the dialysis catheter from prior.
[2024-04-12] MEDS: LORazepam 2 mg/mL INJ 1 mL IM (19:44)
[2024-04-12 19:59] LABS: Bilirubin Urine Negative (Negative); Blood Urine 2+ (Negative); Glucose Urine UA 2+ (Normal); Ketones Urine 1+ (Negative); Leukocyte Esterase Urine Negative (Negative); Nitrate Urine Negative (Negative); Protein Urine 4+ (Negative); Specific Gravity, Urine 1.026 (1.005-1.030); Urine Appearance Clear (CLEAR); Urine Color Yellow (Yellow); Urobilinogen Urine 0.2 mg/dL (Negative)
[2024-04-12 20:04] LABS: Bacteria Urine None Seen /hpf; Hyaline Casts Urine 9.91 /lpf; Squamous Epithelial Cell Urine 0-5 /hpf (0-5); Universal Test for UA Present (0); WBC Urine 0-5 /hpf (0-5)
[2024-04-12 20:06] LABS: Amphetamines Screen Urine Negative (Negative); Barbiturates Screen Urine Negative (Negative); Benzodiazepines Screen Urine Negative (Negative); Cocaine Screen Urine Negative (Negative); Opiate Screen Urine Positive (Negative); PCP Screen Urine Negative (Negative); THC Screen Urine Negative (Negative)
--- NOTE | 2024-04-12 20:16 | ED_ITS ---
HPI - Altered Mental Status 2 General: Chief Complaint: Altered Mental Status Stated Complaint: CP Time Seen by Provider: 04/12/24 19:26 History of Present Illness: 38-year-old female with history of end-s tage renal disease on dialysis and diabetes who presents to the emergency room with altered mental status yesterday. I talked with the hospitalist upon her arrival who is taking care of her. Family states that today she has been having episodes where she is laying in unresponsive and then suddenly she will start screaming. Related Data Home Medications Medication Instructions Recorded Confirmed fluticasone furoate 100 1 inh inhalation DAILY PRN 09/14/23 04/09/24 mcg-vilanterol 25 mcg/dose Shortness Of Breath inhalation powder (Breo Ellipta) clonidine HCl 0.1 mg tablet See Rx Instructions .Route 11/27/23 04/09/24 .COMPLEX PRN Blood Pressure lisinopril 40 mg tablet 40 mg PO BEDTIME 11/27/23 04/09/24 gabapentin 100 mg capsule 100 mg PO TID 12/27/23 04/09/24 insulin glargine 100 unit/mL (3 5 unit SUBCUT QPM 04/06/24 04/09/24 mL) subcutaneous pen (Lantus Solostar U-100 Insulin) Previous Rx's Medication Instructions Recorded blood-glucose meter,continuous #1 ea 06/12/22 (Dexcom G6 Para Educator) blood-glucose sensor (Dexcom G6 #3 ea 06/12/22 Sensor device) blood-glucose transmitter (Dexcom #1 ea 06/12/22 G6 Transmitter device) sevelamer carbonate 800 mg tablet 800 mg PO TID #90 tabs 09/16/23 aspirin 81 mg tablet,delayed 81 mg PO QAM 30 days #30 tabs 03/28/24 release atorvastatin 40 mg tablet 40 mg PO BEDTIME 30 days #30 tabs 03/28/24 carvedilol 3.125 mg tablet 3.125 mg PO BID 30 days #60 tabs 03/28/24 clopidogrel 75 mg tablet 75 mg PO DAILY 30 days #30 tabs 03/28/24 nitroglycerin 0.4 mg sublingual 0.4 mg sublingual Q5M PRN Chest 03/28/24 tablet Pain 30 days #30 tabs escitalopram oxalate 10 mg tablet 20 mg (2 x 10 mg) PO DAILY #60 tabs 04/11/24 (Lexapro) ibuprofen 200 mg tablet 400 mg (2 x 200 mg) PO TID #30 tabs 04/11/24 insulin aspart U-100 100 unit/mL 5 unit (0.05 mL) SUBCUT TID #15 mL 04/11/24 (3 mL) subcutaneous pen (Novolog FlexPen U-100 Insulin aspart) isosorbide mononitrate 60 mg 120 mg (2 x 60 mg) PO DAILY 30 04/11/24 tablet,extended release 24 hr days #60 tabs nifedipine 30 mg tablet,extended 60 mg (2 x 30 mg) PO DAILY 30 days 04/11/24 release 24 hr #60 tabs ranolazine 500 mg tablet,extended 500 mg PO BID 30 days #60 tabs 04/11/24 release,12 hr Allergies Allergy/AdvReac Type Severity Reaction Status Date / Time acetaminophen AdvReac Mild ADR-Gastrointestinal Verified 04/12/24 19:37 Upset Review of Systems 2 General: Reports: ROS unobtainable due to medical condition and ROS unobtainable due to mental status PFSH ED 2 PFSH: Medical History (Updated 04/12/24 @ 21:26 by Dawna Briceno MD) Headache Accelerated hypertension Uncontrolled type 1 diabetes mellitus ESRD (end stage renal disease) Dialysis complication Hypoglycemia Hemodialysis catheter dysfunction Hyperkalemia Colitis End stage renal disease on dialysis COPD (chronic obstructive pulmonary disease) Diabetes mellitus Transaminitis Intractable nausea and vomiting Hyperlipidemia HTN (hypertension) CHF (congestive heart failure), NYHA class III Pulmonary hypertension CAD (coronary artery disease) Neurogenic bladder COVID-19 Tobacco dependence Drug abuse Anemia Community acquired pneumonia Esophagitis Long-term insulin use History of pancreatitis Celiac disease Recurrent UTI Non-alcoholic fatty liver disease Arnold-Chiari malformation Diabetic gastroparesis -continue Reglan Diabetic neuropathy associated with type 1 diabetes mellitus Headache, common migraine, intractable, with status migrainosus Pleural effusion 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 History of lung surgery -s/p LLL lobectomy secondary to cavitary pneumonia (2017) History of endoscopy History of cholecystectomy Family History Grandfather Diabetes Mother CAD (coronary artery disease) Diabetes Brother Acute lymphoblastic leukemia (ALL) in child Other Heart disease Hypertension Social History Smoking and tobacco/nicotine status: former use of tobacco/nicotine Quit status (tobacco/nicotine): has quit using Former quit date comment: She previously smoked <1/2 PPD, quit July 2023. Second hand smoke exposure: Yes Alcohol intake: never Substance/Drug Use: current Household members: children Housing: House Marital status: Single Current occupational status: unemployed Physical Exam 2 Narrative: General: responds minimally to painful stimuli. Then will suddenly become very agitated and screaming out Skin: Warm, dry Head: Normocephalic, atraumatic. Neck: Supple, trachea midline. Eye: Extraocular movements are intact. Ears, nose, mouth and throat: Dry oral mucosa. Cardiovascular: Regular rate and rhythm, Normal peripheral perfusion. Respiratory: Lungs are clear to auscultation, respirations are non-labored, breath sounds are equal, Symmetrical chest wall expansion. Gastrointestinal: Soft, Non distended, Normal bowel sounds. Musculoskeletal: no deformity. Neurological: Not Alert and oriented, No obvious focal neurological deficit observed. Psychiatric: unable to assess. Course 2 Vital Signs: Vital signs: Vital Signs Temperature 97.5 F L 04/12/24 19:30 Pulse Rate 73 04/12/24 21:24 Respiratory Rate 14 04/12/24 21:24 Blood Pressure 170/102 04/12/24 21:24 Pulse Oximetry 99 04/12/24 21:24 Oxygen Delivery Me thod Room Air 04/12/24 21:09 MDM - Altered Mental Status Medical Decision Making Medical decision making: Differential diagnosis including but not limited to and based on the above HPI, review of systems and physical exam: In this patient with altered mental status: Stroke. Hypoglycemia. Metabolic encephalopathy. Infections such as pneumonia, urinary tract infection, Covid-19, Influenza. Electrolyte abnormalities such as hypernatremia. Renal failure / uremia. Hepatic encephalopathy. Hypoxemia. Hypercapnic respiratory failure. Psychosis. Drug or alcohol intoxication. Medication overdose. Orders placed to evaluate differential diagnosis based on the above differential, HPI and physical exam CT head: No acute intracranial process. no intracranial hemorrhage, no evidence of infarct. no evidence of acute fracture.This was reviewed and interpreted by myself the ER physician. Lab Review: Laboratory results were reviewed and interpreted by myself the emergency room physician. No leukocytosis no anemia. I reviewed the patient's medical record. Reexamination: Patient is now very sedated after having some Ativan. Blood pressure is improving. Consultation: I spoke Dr. Edgar who agrees to admission. Assessment and plan: Auditory hallucinations Encephalopathy -I discussed the patient with the hospitalist on-call who is admitting the patient. - Discussed findings and plan with patient's family. Answered any questions. - All laboratory values were reviewed and interpreted personally by myself, the ER physician - All imaging was reviewed and interpreted personally by myself, the ER physician. - Evaluation and treatment of this problem were appropriate in the emergency setting Lab Data 04/12/24 21:01 04/12/24 21:01 Laboratory Results WBC 9.03 10^3/uL (3.29-11.43) 04/12/24 21:01 Corrected WBC Cancelled 04/12/24 20:32 RBC 4.08 10^6/uL (3.85-5.65) 04/12/24 21: Hgb 11.90 g/dL (11.27-16.99) 04/12/24 21:01 Hct 36.4 % (36-47) 04/12/24 21: MCV 89.2 fl (85-98) 04/12/24 21: MCH 29.2 pg (27-33) 04/12/24 21: MCHC 32.7 g/dL (30-55) 04/12/24 21:01 RDW 13.7 % (12.1-15.1) 04/12/24 21: Plt Count 211 10^3/cmm (157-399) 04/12/24 21: MPV 9.3 fL (7.4-10.4) 04/12/24 21:01 Gran % Cancelled 04/12/24 20:32 Neut % (Auto) 75.7 % 04/12/24 21: Lymph % (Auto) 15.0 % 04/12/24 21: Avery % (Auto) 7.2 % 04/12/24 21:01 Eos % (Auto) 0.9 % 04/12/24 21:01 Baso % (Auto) 0.8 % 04/12/24 21:01 Neut # (Auto) 6.84 10^3/uL (1.8-7.7) 04/12/24 21:01 Lymph # (Auto) 1.4 10^3/uL (0.8-4.8) 04/12/24 21:01 Avery # (Auto) 0.7 10^3/uL (0.2-0.9) 04/12/24 21:01 Eos # (Auto) 0.1 10^3/uL (0.0-0.8) 04/12/24 21:01 Baso # (Auto) 0.1 10^3/uL (0.0-0.1) 04/12/24 21:01 Absolute Gran (auto) Cancelled 04/12/24 20:32 Nucleated RBC % (auto) 0 % 04/12/24 21:01 Nucleated RBCs # 0.0 /100WBC 04/12/24 21:01 Specimen Type Arterial 04/12/24 20:20 Sample Site Brachial, right 04/12/24 20:20 ABG pH 7.38 (7.35-7.45) 04/12/24 20:20 ABG pCO2 42.4 mmHg (35-45) 04/12/24 20:20 ABG pO2 70.9 mmHg (80.0-100.0) L 04/12/24 20:20 ABG PO2/FiO2 Ratio 337 04/12/24 20:20 ABG HCO3 25.0 mmol/L (22-26) 04/12/24 20:20 ABG O2 Saturation 94.9 04/12/24 20:20 ABG Base Excess -0.2 mmol/L (-2.0-2.0) 04/12/24 20:20 Braulio Test Pos 04/12/24 20:20 A-a O2 Gradient 3.6 mmHg (5-10) L 04/12/24 20:20 Hematocrit 38.6 % (37-47) 04/12/24 20:20 Hgb O2 Saturation 92.9 % (95-100) L 04/12/24 20:20 Carboxyhemoglobin 1.1 %THgb (0.4-20.1) 04/12/24 20:20 Methemoglobin 1.1 % (0.4-1.5) 04/12/24 20:20 Total Hemoglobin 12.6 g/dL (12-16) 04/12/24 20:20 Sodium 141.0 mmol/L (131-143) 04/12/24 20:20 Potassium 3.5 mmol/L (3.5-5.0) 04/12/24 20:20 Glucose 147.0 mg/dL (70-115) H 04/12/24 20:20 Ionized Calcium 1.2 mmol/L (1.1-1.4) 04/12/24 20:20 O2 Delivery Device Nc 04/12/24 20:20 FiO2 21.0 % 04/12/24 20:20 Tank Wagon Driver ID [email or web address] 04/12/24 20:20 Sodium Cancelled 04/12/24 20:32 Potassium Cancelled 04/12/24 20:32 Chloride Cancelled 04/12/24 20:32 Carbon Dioxide Cancelled 04/12/24 20:32 Anion Gap Cancelled 04/12/24 20:32 BUN Cancelled 04/12/24 20:32 Creatinine Cancelled 04/12/24 20:32 GFR Calculation Cancelled 04/12/24 20:32 Glucose Cancelled 04/12/24 20:32 Calculated Osmolality Cancelled 04/12/24 20:32 Lactic Acid Cancelled 04/12/24 20:32 Calcium Cancelled 04/12/24 20:32 Phosphorus Cancelled 04/12/24 20:32 Total Bilirubin Cancelled 04/12/24 20:32 AST Cancelled 04/12/24 20:32 ALT Cancelled 04/12/24 20:32 Alkaline Phosphatase Cancelled 04/12/24 20:32 C-Reactive Protein Cancelled 04/12/24 20:32 Total Protein Cancelled 04/12/24 20:32 Albumin Cancelled 04/12/24 20:32 Globulin Cancelled 04/12/24 20:32 Urine Color Yellow (Yellow) 04/12/24 17:52 Urine Appearance Clear (CLEAR) 04/12/24 17:52 Urine pH 7.0 (5-7) 04/12/24 17:52 Ur Specific [place] 1.026 (1.005-1.030) 04/12/24 17:52 Urine Protein 4+ (Negative) A 04/12/24 17:52 Urine Glucose (UA) 2+ (Normal) H 04/12/24 17:52 Urine Ketones 1+ (Negative) H 04/12/24 17:52 Urine Blood 2+ (Negative) A 04/12/24 17:52 Urine Nitrate Negative (Negative) 04/12/24 17:52 Urine Bilirubin Negative (Negative) 04/12/24 17:52 Urine Urobilinogen 0.2 mg/dL (Negative) 04/12/24 17:52 Ur Leukocyte Esterase Negative (Negative) 04/12/24 17:52 Urine RBC 11-20 /hpf (0-2) H 04/12/24 17:52 Urine WBC 0-5 /hpf (0-5) 04/12/24 17:52 Ur Squamous Epith Cells 0-5 /hpf (0-5) 04/12/24 17:52 Amorphous Sediment Not Reportable 04/12/24 17:52 Urine Bacteria None seen /hpf (NONE) 04/12/24 17:52 Hyaline Casts 9.91 /lpf 04/12/24 17:52 Salicylates Cancelled 04/12/24 20:32 Urine Opiates Screen Positive ng/mL (Negative) H 04/12/24 17:52 Acetaminophen Cancelled 04/12/24 20:32 Ur Barbiturates Screen Negative ng/mL (Negative) 04/12/24 17:52 Ur Phencyclidine Scrn Negative ng/mL (Negative) 04/12/24 17:52 Ur Amphetamines Screen Negative ng/mL (Negative) 04/12/24 17:52 U Benzodiazepines Scrn Negative ng/mL (Negative) 04/12/24 17:52 Urine Cocaine Screen Negative ng/mL (Negative) 04/12/24 17:52 U Marijuana (THC) Screen Negative ng/mL (Negative) 04/12/24 17:52 Ethyl Alcohol Cancelled 04/12/24 20:32 XR interpretation done by ED provider, pending radiology final review Discharge Plan Discharge Patient Disposition: Admitted As Inpatient Clinical Impression: Auditory hallucination, Accelerated hypertension, Encephalopathy, End stage renal disease on dialysis Condition: Stable Coding Level of Care Code ED Chip Frier for Reji Chandler
[2024-04-12 20:25] LABS: ABG PCO2 42.4 mmHg (35-45); ABG PH Result 7.38 (7.35-7.45); Alveolar-Arterial Oxygen Gradi 3.6 mmHg (5-10); Arterial Blood Gas Hematocrit 38.6 % (37-47); Base Excess ABG -0.2 mmol/L (-2.0-2.0); Blood Gas Allen Test Pos; Blood Gas Sample Site Brachial, right; Blood Gas Sample Type Arterial; Carboxyhemoglobin 1.1 %THgb (0.4-20.1); HGB O2 Sat 92.9 % (95-100); Ionized Calcium Level - ABG 1.2 mmol/L (1.1-1.4); Methemoglobin 1.1 % (0.4-1.5); Oxygen Device NC; Oxygen Saturation ABG 94.9; PO2 ABG 70.9 mmHg (80.0-100.0); PO2 FiO2 Ratio Arterial Blood 337; Potassium Level - ABG 3.5 mmol/L (3.5-5.0); Total Hemoglobin 12.6 g/dL (12-16)
[2024-04-12 21:07] LABS: Basophils # 0.1 10^3/uL (0.0-0.1); Basophils % 0.8 %; Eosinophils # 0.1 10^3/uL (0.0-0.8); Eosinophils % 0.9 %; Hematocrit 36.4 % (36-47); Lymphocytes # 1.4 10^3/uL (0.8-4.8); Mean Corpuscular HGB Conc 32.7 g/dL (30-55); Mean Corpuscular Hemoglobin 29.2 pg (27-33); Mean Corpuscular Volume 89.2 fl (85-98); Mean Platelet Volume 9.3 fL (7.4-10.4); Monocytes # 0.7 10^3/uL (0.2-0.9); Monocytes % 7.2 %; Neutrophils # 6.84 10^3/uL (1.8-7.7); Neutrophils % 75.7 %; Nucleated Red Blood Cells % 0 %; Platelet Count 211 10^3/cmm (157-399); Red Blood Count 4.08 10^6/uL (3.85-5.65); Red Cell Distribution Width 13.7 % (12.1-15.1); White Blood Count 9.03 10^3/uL (3.29-11.43)
[2024-04-12 21:27] LABS: Alanine Aminotransferase 13 U/L (0-33); Albumin Level 4.3 g/dL (3.5-5.2); Alkaline Phosphatase 127 U/L (35-105); Anion Gap 21.7 (5-19); Aspartate Amino Transferase 21 U/L (0-32); Blood Urea Nitrogen 39 mg/dL (6-20); Calcium 8.8 mg/dL (8.5-10.5); Carbon Dioxide 23 mmol/L (22-29); Chloride 92 mmol/L (98-107); Globulin 3.8 g/dL (1.3-4.6); Glomerular Filtration Rate 9.7 mL/min (90-130); Glucose 153 mg/dL (65-115); Osmolality Calculated 288 mOsm/kg (285-295); Phosphorus 4.9 mg/dL (2.5-4.5); Potassium 3.7 mmol/L (3.5-5.1); Sodium 133 mmol/L (136-145); Total Bilirubin 0.4 mg/dL (0.15-1.2); Total Protein 8.1 g/dL (6.6-8.7)
[2024-04-12 21:28] LABS: Acetaminophen < 5.0 ug/mL (10-30); Alcohol Level < 10 mg/dL (0-10); Salicylate < 0.3 mg/dL (3-10)
[2024-04-12 21:46] LABS: Covid PCR NEGATIVE (Negative); Influenza A NEGATIVE (Negative); Influenza B NEGATIVE (Negative); Respiratory Syncytial Virus Ce NEGATIVE (Negative)
--- NOTE | 2024-04-12 23:30 | P.HP_ITS ---
Providers/Chief Complaint 2 Admitting Physician: Ruy Edgar MD Primary Care Provider: SUZANNE Dias Chief Complaint: CP,Halluciinations History of Present Illness Donita Aguilar is a 38 year old female With a past medical history of CAD status post stenting, end-stage renal disease, history of C. difficile, recent history of NSTEMI requiring RCA stenting, DM, recently admitted here until April 11, 2024 when she has presented with chest pain and was found to have in-stent restenosis of 2 vessels with collaterals and underwent PCI to RCA. She received treatment with heparin and underwent cardiac echocardiogram which showed normal EF without regional wall motion abnormality. Patient's hospitalization was prolonged and complicated. She continued to have intermittent chest pain during the hospitalization for which she required nitroglycerin infusion. There were multiple attempts for her to have a stress test because of ongoing chest pain however perfusion imaging remained equivocal as she could not reach her target heart rate. Possibly of pericarditis was also entertained but her CRP and ESR remain stable. She had uncontrolled hypertension for which her antihypertensives were adjusted. On April 08 patient complained of right retro-orbital pain with blurry peripheral vision. CTA of the head and neck was done which was negative for stroke. Patient's symptoms improved after controlling her blood pressure. Incidentally she was found to have concern for layering high density material along the right posterior globe concerning for lens dislocation. These findings were discussed with ophthalmology on-call who recommended outpatient management. CTA of the head and neck on April 08 was negative for any stroke, or aneurysms. No intracranial hemorrhage or edema was noted. She had intermittent hallucinations per nursing reports especially at the time of headaches which were thought to be related to complicated migraine vs high BP. She was discharged in a stable condition after resolution of all of the above issues. She was brought back by her family due to report of altered mental status. Family reported that she has has had episodes at home where she would lay in bed unresponsive and then all of a sudden started screaming out of context at home. At the time of assessment here, patient is alert awake and oriented, able to answer most questions, however intermittently will perform actions such as reaching for objects when there are none around. Attempting to put food in her mouth when there is nothing to eat around her. She continues to have intermittent chest discomfort over the left side of her chest rating it as unchanged over last discharge. Review of Systems 2 General: Reports: 10 or more systems reviewed and unremarkable except in HPI and below Const: Denies: fever(s), chills or body aches Eyes: Denies: change in vision, blurry vision or photophobia ENMT: Reports: hoarseness; Denies: throat pain, enlarged tonsils, odynophagia or nasal congestion Card: Denies: chest pain, palpitations, irregular heart rhythm, edema, swelling of feet/ankles, lightheadedness, pre-syncope, dyspnea on exertion or orthopnea Resp: Denies: dyspnea, productive cough, non-productive cough, wheezing, stridor, pain on inspiration, change in phlegm color, hemoptysis or chest congestion GI: Denies: abdominal pain, nausea, vomiting, hematemesis, coffee ground emesis, dysphagia, heartburn, diarrhea, constipation, GI cramping, change in stool character, hematochezia or melena : Denies: flank pain, difficulty voiding, dysuria, urinary frequency, urinary urgency, urinary hesitancy or hematuria Musc: Denies: neck pain, back pain, extremity pain, joint swelling, joint warmth or deformity Neuro: Denies: headache(s), numbness in extremities, weakness in extremities, sensory changes, difficulty walking, frequent falls, dizziness, vertigo, behavioral changes, Slurred speech present or seizure-like activity Psych: Denies: anxiety, depression, suicidal ideation or homicidal ideation Endo: Denies: polyuria, polydipsia, tired all the time, cold intolerance or hot flashes Ramiro/Lymph: Denies: easy bruising or easy bleeding Medications/Allergies Home Medications Medication Instructions Recorded Confirmed Last Taken Type blood-glucose meter,continuous #1 ea 06/12/22 04/09/24 Unknown Rx (Dexcom G6 Patient Biller) blood-glucose sensor (Dexcom G6 #3 ea 06/12/22 04/09/24 Unknown Rx Sensor device) blood-glucose transmitter (Dexcom #1 ea 06/12/22 04/09/24 Unknown Rx G6 Transmitter device) fluticasone furoate 100 1 inh inhalation DAILY PRN 09/14/23 04/09/24 09/20/23 History mcg-vilanterol 25 mcg/dose Shortness Of Breath inhalation powder (Breo Ellipta) sevelamer carbonate 800 mg tablet 800 mg PO TID #90 tabs 09/16/23 04/09/24 04/04/24 Rx clonidine HCl 0.1 mg tablet See Rx Instructions .Route 11/27/23 04/09/24 Unknown History .COMPLEX PRN Blood Pressure lisinopril 40 mg tablet 40 mg PO BEDTIME 11/27/23 04/09/24 04/04/24 History gabapentin 100 mg capsule 100 mg PO TID 12/27/23 04/09/24 04/04/24 History aspirin 81 mg tablet,delayed 81 mg PO QAM 30 days #30 tabs 03/28/24 04/09/24 04/04/24 Rx release atorvastatin 40 mg tablet 40 mg PO BEDTIME 30 days #30 tabs 03/28/24 04/09/24 04/04/24 Rx carvedilol 3.125 mg tablet 3.125 mg PO BID 30 days #60 tabs 03/28/24 04/09/24 04/04/24 Rx clopidogrel 75 mg tablet 75 mg PO DAILY 30 days #30 tabs 03/28/24 04/09/24 04/04/24 Rx nitroglycerin 0.4 mg sublingual 0.4 mg sublingual Q5M PRN Chest 03/28/24 04/09/24 Unknown Rx tablet Pain 30 days #30 tabs insulin glargine 100 unit/mL (3 5 unit SUBCUT QPM 04/06/24 04/09/24 Unknown History mL) subcutaneous pen (Lantus Solostar U-100 Insulin) escitalopram oxalate 10 mg tablet 20 mg (2 x 10 mg) PO DAILY #60 tabs 04/11/24 04/09/24 04/04/24 Rx (Lexapro) ibuprofen 200 mg tablet 400 mg (2 x 200 mg) PO TID #30 tabs 04/11/24 Unknown Rx insulin aspart U-100 100 unit/mL 5 unit (0.05 mL) SUBCUT TID #15 mL 04/11/24 04/09/24 04/04/24 Rx (3 mL) subcutaneous pen (Novolog FlexPen U-100 Insulin aspart) isosorbide mononitrate 60 mg 120 mg (2 x 60 mg) PO DAILY 30 04/11/24 Unknown Rx tablet,extended release 24 hr days #60 tabs nifedipine 30 mg tablet,extended 60 mg (2 x 30 mg) PO DAILY 30 days 04/11/24 Unknown Rx release 24 hr #60 tabs ranolazine 500 mg tablet,extended 500 mg PO BID 30 days #60 tabs 04/11/24 Unknown Rx release,12 hr Allergies Allergy/AdvReac Type Severity Reaction Status Date / Time acetaminophen AdvReac Mild ADR-Gastrointestinal Verified 04/12/24 19:37 Upset PFSH Acute 2 PFSH: Medical History Headache Accelerated hypertension Uncontrolled type 1 diabetes mellitus ESRD (end stage renal disease) Dialysis complication Hypoglycemia Hemodialysis catheter dysfunction Hyperkalemia Colitis End stage renal disease on dialysis COPD (chronic obstructive pulmonary disease) Diabetes mellitus Transaminitis Intractable nausea and vomiting Hyperlipidemia HTN (hypertension) CHF (congestive heart failure), NYHA class III Pulmonary hypertension CAD (coronary artery disease) Neurogenic bladder COVID-19 Tobacco dependence Drug abuse Anemia Community acquired pneumonia Esophagitis Long-term insulin use History of pancreatitis Celiac disease Recurrent UTI Non-alcoholic fatty liver disease Arnold-Chiari malformation Diabetic gastroparesis -continue Reglan Diabetic neuropathy associated with type 1 diabetes mellitus Headache, common migraine, intractable, with status migrainosus Pleural effusion 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 History of lung surgery -s/p LLL lobectomy secondary to cavitary pneumonia (2017) History of endoscopy History of cholecystectomy Family History Grandfather Diabetes Mother CAD (coronary artery disease) Diabetes Brother Acute lymphoblastic leukemia (ALL) in child Other Heart disease Hypertension Social History Smoking and tobacco/nicotine status: former use of tobacco/nicotine Quit status (tobacco/nicotine): has quit using Former quit date comment: She previously smoked <1/2 PPD, quit July 2023. Second hand smoke exposure: Yes Alcohol intake: never Substance/Drug Use: current Household members: children Housing: House Marital status: Single Current occupational status: unemployed Vitals/I&O/Wt Last Vital Signs Temp 98.7 F 04/13/24 04:00 Pulse 61 04/13/24 06:00 Resp 13 04/13/24 04:00 BP 104/70 04/13/24 04:00 Pulse Ox 99 04/13/24 04:00 O2 Del Method Room Air 04/13/24 04:00 Weight last 48 hrs Weight 49.895 kg Weight 49.895 kg Weight 49.85 kg Physical Exam 2 Narrative: General: No acute distress, AO x3 HEENT: PERRLA, pupils bilaterally equal and reactive, pallors not present Chest: Normal vesicular breath sounds, no added sounds, equal good air entry bilaterally CVS: S1-S2 regular, no murmurs, no tachycardia, no gallops, no rubs Abdomen: Soft, nontender, no organomegaly, bowel sounds present Neuro: No focal deficits, no facial deformity, AO x3, power 5/5 in all limbs Data 04/13/24 04:45 04/13/24 04:45 Other data: CT/CT head wo con* [id number] IMPRESSION: 1. No evidence of acute intracranial pathology. 2. Nonspecific layering density within the right globe concerning for globe injury/hemorrhage. This appears unchanged from recent prior comparison. A&P Assessment and plan (1) End stage renal disease on dialysis: (2) Chest pain: (3) Altered mental status: Plan 38-year-old lady with recent history as above, brought back by family after recent discharge due to complaints of altered mental status since returning home. CT of the head without any acute infarct or hemorrhage. Noted right posterior layering density similar to past CT which was opined at the time to be dislocated lens. On assessment today patient is alert awake , able to answer orientation questions however intermittently exhibits odd behavior such as attempting to reach for objects that are not there. Currently her blood pressure not elevated. Less likely hypertensive encephalopathy or press. Hold gabapentin for now Not currently hypoglycemic, no reported hypoglycemia at home Does complain of left-sided chest discomfort as she has been having on previous admission this is likely related to chronic angina, cardiac history recently as noted above. Troponin today at 261, similar to last admission. Chest pain resolved spontaneously without any directed efforts. Urine drug screen positive for opiates potentially be contributing. Holding off on opiates for now to get an accurate assessment She did receive Ativan 2 mg IM in the emergency room, will hold off on any other sedating medications for now to get an accurate assessment of her mental status. MRI of the brain with and without contrast to assess for stroke or other organic lesions which may be contributing to the mental status. CT head and recent CTA without an obvious cause thus far. May need neurology assessment once results of MRI are available. Nephrology consulted to maintain hemodialysis schedule while inpatient Continue dual antiplatelet therapy with aspirin and Plavix. DVT prophylaxis: Heparin 5000 units subcutaneously every 12 hours Full code Attestations 2 Medical Necessity Statement*: less than 2 midnight stay anticipated at this time Coding Level of Care Code Acute Code for Chg Fwd Moderate MDM includes number and complexity of problems actively addressed during encounter, amount and/or complexity of data reviewed/ordered and described risk of complication, morbidity or mortality of management as documented Diagnoses End stage renal disease on dialysis N18.6; Z99.2 Chest pain R07.9 Altered mental status R41.82
[2024-04-13] VITALS (17 sets, daily range): BP systolic 104–155; BP diastolic 70–90; PULSE 60–70; RESP 12–22; TEMP 36.8–37.1; O2SAT 98–100
--- NOTE | 2024-04-13 00:03 | MR_ITS ---
WS: [id number] MRI BRAIN WITH AND WITHOUT CONTRAST HISTORY: altered mental status COMPARISON: 01/29/2019, 04/08/2019 TECHNIQUE: Multiplanar imaging performed through the brain with MultiHance 11 ml's IV. Significant motion artifact throughout the entire examination. No acute infarcts are seen. Whittington-white matter differentiation is well preserved. The scattered small vessel ischemic changes noted on the prior study from 2019 are not as apparent due to the motion deborah fact. No large areas of infarct. No hemorrhage or edema. No susceptibility artifacts or prior lacunar infarcts. Ventricles and extra-axial spaces are normal. Clivus and pituitary gland are normal. Posterior fossa is negative. Very slight ectopia of the cerebellar tonsils. Less than 5 mm descent of the cerebellar tonsils to the foramen magnum. Postcontrast images are negative for masses or vascular malformations. Dural venous sinuses are normal. Paranasal sinuses: Well aerated with no significant disease. Mastoid air cells: Normal. Calvarium and scalp: Normal. MR/MR head wo/w con [id number] IMPRESSION: 1. No acute infarct. No significant edema. 2. Significant motion artifact obscuring portions of the brain. 3. Small vessel ischemic changes described in 2019 are not apparent due to the motion. No prior infarct. 4. No enhancing mass. 5. Mild cerebellar tonsil ectopia.
[2024-04-13 02:39] LABS: Thyroid Stimulating Hormone 6.49 uIU/mL (0.27-4.20)
[2024-04-13 02:53] LABS: Troponin T (5th) Once 261 ng/L (0-10)
[2024-04-13 04:57] LABS: Basophils # 0.1 10^3/uL (0.0-0.1); Eosinophils # 0.1 10^3/uL (0.0-0.8); Eosinophils % 1.1 %; Hematocrit 39.5 % (36-47); Lymphocytes % 24.4 %; Mean Corpuscular HGB Conc 32.7 g/dL (30-55); Mean Corpuscular Hemoglobin 29.5 pg (27-33); Mean Corpuscular Volume 90.2 fl (85-98); Mean Platelet Volume 9.3 fL (7.4-10.4); Monocytes # 0.8 10^3/uL (0.2-0.9); Neutrophils # 5.38 10^3/uL (1.8-7.7); Neutrophils % 64.3 %; Nucleated Red Blood Cells % 0 %; Platelet Count 213 10^3/cmm (157-399); Red Blood Count 4.38 10^6/uL (3.85-5.65); Red Cell Distribution Width 13.7 % (12.1-15.1); White Blood Count 8.36 10^3/uL (3.29-11.43)
[2024-04-13 05:19] LABS: Alanine Aminotransferase 13 U/L (0-33); Albumin Level 4.2 g/dL (3.5-5.2); Alkaline Phosphatase 126 U/L (35-105); Anion Gap 17.8 (5-19); Aspartate Amino Transferase 19 U/L (0-32); Blood Urea Nitrogen 46 mg/dL (6-20); Calcium 8.7 mg/dL (8.5-10.5); Carbon Dioxide 24 mmol/L (22-29); Chloride 95 mmol/L (98-107); Creatinine Clr Calc Pharmacy 10.2615; Globulin 3.4 g/dL (1.3-4.6); Glomerular Filtration Rate 8.5 mL/min (90-130); Glucose 133 mg/dL (65-115); Osmolality Calculated 290 mOsm/kg (285-295); Potassium 3.8 mmol/L (3.5-5.1); Sodium 133 mmol/L (136-145); Total Bilirubin 0.3 mg/dL (0.15-1.2); Total Protein 7.6 g/dL (6.6-8.7)
[2024-04-13 06:38] LABS: Glucose Point of Care 114 mg/dL (70-110)
--- NOTE | 2024-04-13 06:57 | PC.NURSE ---
when pt is awakened by ancillary staff pt is requesting pain medicine. when nurse enters room to evaluate pt, pt is already asleep (eyes closed, steady breathing, no facial grimace)
[2024-04-13] MEDS: pantoprazole DR 40 mg Tablet PO (08:56)
[2024-04-13] MEDS: aspirin 81 mg EC Tablet PO (08:56)
[2024-04-13] MEDS: ranolazine (12HR) 500 mg Tablet PO (08:56)
[2024-04-13] MEDS: heparin 5,000 unit/mL INJ 1 mL 5000 UNIT SUBCUT ×2 (08:56→21:14)
[2024-04-13] MEDS: sevelamer 800 mg Tablet PO ×3 (08:56→21:14)
[2024-04-13] MEDS: clopidogrel 75 mg Tablet PO (08:56)
[2024-04-13] MEDS: carvedilol 3.125 mg Tablet PO ×2 (08:56→18:38)
--- NOTE | 2024-04-13 09:09 | PC.PHAR ---
Discharge Paper showed patient took Alprazolam 0.5 04/09/24 at Inpatient extrernal med list shows rx deleted verified with Pharmacy not received
[2024-04-13 10:19] LABS: Glucose Point of Care 190 mg/dL (70-110)
--- NOTE | 2024-04-13 10:19 | CT_ITS ---
WS: [email or web address] Exam: CT head wo con* [id number] Date/Time of Exam: 04/13/2024 10:23 AM Reason For Exam: FALL DLP: 999.[address] scans at [facility] use at least one of these dose optimization techniques: automated e xposure control; mA and/or kV adjustment per patient size (includes targeted exams where dose is matc hed to clinical indication); or iterative reconstruction. Comparison 04/12/2024. No sign of acute intracranial bleed or space-occupying mass. The ventricles are normal in size. No ex tra-axial fluid collections are seen. Brainstem and cerebellum are unremarkable. The skull is intact. The facial sinuses and mastoids are clear. Again noted is soft tissue thickening in the posterior as pect of the RIGHT optic globe which has been described previously. This is stable in appearance. The LEFT globe and orbit are unremarkable. CT/CT head wo con* [id number] IMPRESSION: 1. No acute intracranial finding. 2. Soft tissue thickening in the posterior aspect of the RIGHT optic globe whic h is unchanged from the prior study.
--- NOTE | 2024-04-13 10:20 | ECG_ITS ---
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1985 Requested By: Shola Carrera Order Number: [id number] Faviola MD: JOSEFA TALLEY Measurements Intervals [place] Rate: 68 P: 69 TX: 196 QRS: -20 QRSD: 122 T: 22 QT: 443 QTc: 472 Interpretive Statements SINUS RHYTHM LEFT ATRIAL ENLARGEMENT [-0.15mV P-WAVE IN V1/V2] LEFT VENTRICULAR HYPERTROPHY AND ST-T CHANGE [VOLTAGE CRITERIA PLUS ST/T ABNORMALITY] INFERIOR MYOCARDIAL INFARCTION , OF INDETERMINATE AGE [40+ ms Q WAVE AND/OR ST/T ABNORMALITY IN II/aVF] INTERPRETATION BASED ON A DEFAULT AGE OF 40 YEARS Compared to ECG 04/08/2024 18:39:59 Atrial abnormality now present Left ventricular hypertrophy now present ST (T wave) deviation now present Electronically Signed On 04-14-2024 21:01:30 CDT by JOSEFA TALLEY [email or web address]
--- NOTE | 2024-04-13 10:20 | XRR_ITS ---
PROCEDURE INFORMATION: Exam: XR Bilateral Hips Exam date and time: 04/13/2024 10:55 AM Age: 38 years old Clinical indication: Injury or trauma; Fall; Blunt trauma (contusions or hematomas); Bilateral; Pelvic region TECHNIQUE: Imaging protocol: Radiologic exam of the bilateral hips. Views: 2 views of hips with pelvis when performed. COMPARISON: CR XR hip RT 2-3V wo/w pel* [id number] 03/24/2024 3:17 PM FINDINGS: Bones/joints: No acute osseous findings. Soft tissues: Visualized soft tissues are within normal limits. Organs: Retained contrast within the urinary bladder. Vasculature: Vascular calcific disease. XR/XR hip BI m 5V wo/w pel* [id number] IMPRESSION: No acute osseous findings.
--- NOTE | 2024-04-13 10:20 | XR_ITS ---
WS: [email or web address] Exam: XR knee LT 1-2V [id number] Date/Time of Exam: 04/13/2024 10:49 AM Reason For Exam: fall Comparison 01/24/2024. There is an area of bony sclerosis involving the lateral aspect of the upper tibial metaphysis with c allus noted along the cortex. This is suspicious for a healing stress fracture. The remainder of the LEFT knee shows no sign of fracture. Soft tissues are unremarkable. No joint effusion. XR/XR knee LT 1-2V [id number] IMPRESSION: 1. Findings are suspicious for a healing stress fracture of the upper tibial me taphysis.
--- NOTE | 2024-04-13 10:20 | XR_ITS ---
WS: [email or web address] Exam: XR knee RT 1-2V [id number] Date/Time of Exam: 04/13/2024 10:49 AM Reason For Exam: fall Comparison 03/24/2024. No fracture or dislocation. No joint effusion. Normal soft tissues. The joints are relatively well-ma intained. XR/XR knee RT 1-2V [id number] IMPRESSION: 1. No fracture or other significant finding. No change.
--- NOTE | 2024-04-13 10:34 | PC.NURSE ---
called by a family member in room 112-1 visitor stated pt is on the floor. pt found laying on the floor, non verbal and mildly unconscious, pale, unwitnessed fall. pt has a pulse and breathing. called rapid response. pt stated she hit her head and in body pain. assisted pt back in bed. dr and physics tutor at bedside. VS taken, BP-114/78, hr- 71,blood sugar-190. notified family.
--- NOTE | 2024-04-13 10:37 | PC.CHAP ---
Pastoral Care Encounter/Spiritual Assessment Type of Contact [] Declined tinning equipment tender visit [] Patient/Family/Request visit [] Outpatient visit [] Follow-up visit [] Physician referral [] Code/Alert [x] Routine visit [] Staff referral [] Actively dying [] Patient sleeping [] Family support [] [] Out of room [] Palliative care [] [] Receiving care in room [] Pre-surgical visit [] Trauma [] Long length of stay [] ICU visit [] Other: Relational/Emotional Strength [] Patient feels connected with others/family/visitors/staff [] Distress [] Loneliness/isolation [] Abandonment Spirituality of Patient [] Person of Marly [] Attends Roman Catholic of their Marly [] Believes in Prayer [] Reads Bible or Pentecostalism materials [] There are Spiritual issues to be addressed Senior Librarian Interventions [x] Prayer [] Active listening [] Non-anxious presence [] Spiritual/emotional support [] Crisis/trauma care [] Spiritual counseling [] Bereavement support [] Provided bereavement packet [] Provided Bible/devotional materials [] Provided toy/stuffed animal, coloring book to patient or family member [] Provided Communion [] Anointing/[place] [] Salvation [x] Completed spiritual assessment [] Other: Impact on Illness or Injury [] Angry [] Fearful [] Anxious [] Often cries [] Exhaustion [] Unable to work [] Unable to attend methodist [] Unable to walk/stand [] Unable to read [] Unable to drive [] Unable to eat/drink [] Unable to sleep [] Unable to be with family [] Patient intubated [] Other: Summary Time spent with patient
[2024-04-13 11:46] LABS: Troponin(5th) Baseline 298 ng/L (0-10)
--- NOTE | 2024-04-13 11:48 | PC.NURSE ---
Pt IV on left upper arm is occluded, wont flush called house sup and will do another PATRICE guided new iv access.
--- NOTE | 2024-04-13 12:05 | PC.NURSE ---
new IV ultrasound guide started on same area, left upper arm. #20
--- NOTE | 2024-04-13 12:44 | ECG_ITS ---
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1985 Requested By: Shola Carrera Order Number: [id number] Reading MD: JOSEFA TALLEY Measurements Intervals [place] Rate: 60 P: 24 UT: 196 QRS: -14 QRSD: 124 T: -32 QT: 472 QTc: 473 Interpretive Statements SINUS RHYTHM INFERIOR MYOCARDIAL INFARCTION , OF INDETERMINATE AGE [40+ ms Q WAVE AND/OR ST/T ABNORMALITY IN II/aVF] Compared to ECG 04/13/2024 10:20:16 Atrial abnormality no longer present Left ventricular hypertrophy no longer present ST (T wave) deviation no longer present Myocardial infarct finding still present Electronically Signed On 04-14-2024 21:20:21 CDT by JOSEFA TALLEY [email or web address]
[2024-04-13] MEDS: oxyCODONE 5 mg IR Tab/Cap PO ×2 (12:59→18:42)
[2024-04-13] MEDS: insulin lispro 100 unit/1 mL SUBCUT ×2 (12:59→18:38)
--- NOTE | 2024-04-13 14:00 | P.PN_ITS ---
Subjective 2 Subjective: - Patient was examined earlier this morn ing, she is alert to person, to place, she knows the year, does not know the day of the week, she does not know her address, she can follow commands no facial droop no slurring of words no focal weakness but she is generally weak all over she tells me, she hurts all over, no chest pain, no shortness of breath but reports not feeling well, denies any visual deficits currently, no nausea, no vomiting, she does report methamphetamine use, but this was over 6 months ago, per Negative, Babinski sign negative, does report a headache -Rapid response was called at roughly 10 :10 AM patient had gone up to use the bathroom was found on the floor, not responding appropriately -Upon her arrival patient was in bed, wi th the help of nursing staff, normotensive heart rates in the 90s, normal sinus rhythm, she is on room air, she is alert to person, to place, not to time she follows all commands does report pain in her left hip, left knee, reports a headache, nursing staff do report that she hit her head when she fell to the ground, denies any chest pain, blood sugar 198, EKG no acute ST-T wave changes, continues to complain of pain all over she does follow commands, -Stat CT head, x-ray of her hip, her kne es ordered, repeat EKG series, troponin series, we will keep her on bedrest, monitor her mentation closely discussed closely with nursing staff Vitals/I&O/Wt Last Vital Signs Temp 98.8 F 04/13/24 08:55 Pulse 60 04/13/24 12:45 Resp 15 04/13/24 12:59 BP 142/82 04/13/24 12:45 Pulse Ox 99 04/13/24 12:00 O2 Del Method Room Air 04/13/24 08:55 04/12/24 04/13/24 04/13/24 22:59 06:59 14:59 Intake Total 444 / 444 Balance 444 / 444 Weight last 48 hrs Weight 49.895 kg Weight 49.895 kg Weight 49.85 kg Physical Exam 2 Const: COMMON NORMALS: no acute distress EXAM LIMITATIONS: altered mental status ORIENTATION/CONSCIOUSNESS: Yes awake, Yes oriented to person and Yes confused; not oriented to place Eye: COMMON NORMALS: Equal, round and reactive pupils present and EOMs intact bilaterally PUPIL: Yes Equal, round and reactive pupils present Neck/C-Spine: COMMON NORMALS: full ROM, no lymphadenopathy and no meningeal signs Resp: COMMON NORMALS: normal respiratory effort, No retractions, No use of accessory muscles and clear to auscultation bilaterally AUSCULTATION: clear to auscultation bilaterally Cardio: COMMON NORMALS: regular rate, regular rhythm, S1 normal heart sound present and S2 normal heart sound present RATE: regular rate RHYTHM: r egular rhythm HEART SOUNDS: S1 normal heart sound present and S2 normal heart sound present GI: COMMON NORMALS: Normal to inspection, nondistended, normoactive bowel sounds present and non-tender Extremity: COMMON NORMALS: no pedal edema Neuro: COMMON NORMALS: CN's II-XII intact bilaterally, moves all extremities and no focal motor deficits SENSORIUM/ORIENTATION: Yes oriented to person and No oriented to place MENINGEAL SIGNS: Yes no meningeal signs Data 04/13/24 04:45 04/13/24 04:45 A&P Assessment and plan (1) End stage renal disease on dialysis: (2) Chest pain: (3) Altered mental status: (4) Uncontrolled type 1 diabetes mellitus: Qualifiers: Glycemic state: with hyperglycemia Qualified Code(s): E10.65 - Type 1 diabetes mellitus with hyperglycemia (5) Fall: Qualifiers: Encounter type: initial encounter Qualified Code(s): W19.XXXA - Unspecified fall, initial encounter (6) Blurry vision, right eye: Plan Altered mental status -Etiology unclear at this time -Initial head CT no acute findings -MRI of the brain has been ordered -Kernig sign negative, Brudzinski negative -Possible ranolazine side effect? Given patient is on dialysis, increased risk of adverse side effects, will hold ranolazine for now -Possible orthostatic hypotension, will check orthostatic vitals, hold off on ranolazine -Neurochecks -Aspiration precautions, NIH stroke scale History of blurry vision right eye -Concerns for lens dislocation right eye during prior hospitalization, case was discussed with ophthalmology, recommended outpatient follow-up NSTEMI Fall -CT head -X-ray of bilateral knees -X-ray of bilateral hips -Check orthostatic vitals -PT OT -Bedrest until imaging is rules out fractures Recent history of RCA stent -With NSTEMI -Currently denies chest pain -Serial EKGs, serial troponins, telemetry monitoring -Continue aspirin, statin, Plavix Type 1 diabetes mellitus, continue insulin Full code Heparin for DVT prophylaxis Attestations 2 Medical Necessity Statement*: Patient requires hospitalization, inpatient, greater than 2 minutes, due to acute encephalopathy, fall Diagnoses End stage renal disease on dialysis N18.6; Z99.2 Chest pain R07.9 Altered mental status R41.82 Uncontrolled type 1 diabetes mellitus with hyperglycemia E10.65 Glycemic state: with hyperglycemia Fall W19.XXXA Encounter type: initial encounter Blurry vision, right eye H53.8
[2024-04-13 14:32] LABS: Troponin 5 2HR Delta 4.7 ABS# (0-10)
[2024-04-13 14:35] LABS: Troponin 5 2HR 302.7 ng/L (0-10)
--- NOTE | 2024-04-13 16:20 | ECG_ITS ---
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1985 Requested By: Shola Carrera Order Number: [id number] Faviola MD: JOSEFA TALLEY Measurements Intervals [place] Rate: 62 P: 46 NE: 217 QRS: -6 QRSD: 118 T: -35 QT: 470 QTc: 480 Interpretive Statements SINUS RHYTHM WITH FIRST DEGREE AV BLOCK MODERATE INTRAVENTRICULAR CONDUCTION DELAY [110+ ms QRS DURATION] MODERATE T-WAVE ABNORMALITY, CONSIDER INFERIOR ISCHEMIA [-0.1+ mV T-WAVE IN II/aVF] Compared to ECG 04/13/2024 12:44:18 First degree AV block now present Intraventricular conduction delay now present T-wave abnormality now present Possible ischemia now present Myocardial infarct finding no longer present Electronically Signed On 04-14-2024 21:18:04 CDT by JOSEFA TALLEY [email or web address]
[2024-04-13] MEDS: gadobenate dimeglumine 20 mL vial 11 ML IV (17:02)
--- NOTE | 2024-04-13 17:32 | P.CONIM_ITS ---
Providers/Reason For Consult 2 Consulting Physician/Specialty*: [facility]/Nephrology Reason for Consult*: ESRD Attending Physician: Shola Carrera MD Primary Care Provider: SUZANNE Dias History of Present Illness History of Present Illness Donita Aguilar is a 38 year old female Patient is a 38-year-old female with past medical history of coronary artery disease with multiple stents, multiple recent admissions due to chest pain, end-stage renal disease on dialysis per TTS schedule, diabetes, hypertension, recent NSTEMI presented to the emergency department due to chest pain and hallucinations. Patient was dialyzed here in the hospital during last admission on Saturday. Vital signs are stable, lab data reviewed, sodium 133, hemoglobin 12.9 creatinine 5.6. Review of Systems 2 Narrative: NEGATIVE Medications/Allergies Home Medications Medication Instructions Recorded Confirmed Last Taken Type blood-glucose meter,continuous #1 ea 06/12/22 04/13/24 Unknown Rx (Dexcom G6 Workers Compensation Attorney) blood-glucose sensor (Dexcom G6 #3 ea 06/12/22 04/13/24 Unknown Rx Sensor device) blood-glucose transmitter (Dexcom #1 ea 06/12/22 04/13/24 Unknown Rx G6 Transmitter device) fluticasone furoate 100 1 inh inhalation DAILY PRN 09/14/23 04/13/24 09/20/23 History mcg-vilanterol 25 mcg/dose Shortness Of Breath inhalation powder (Breo Ellipta) sevelamer carbonate 800 mg tablet 800 mg PO TID #90 tabs 09/16/23 04/13/24 04/12/24 Rx clonidine HCl 0.1 mg tablet See Rx Instructions .Route 11/27/23 04/13/24 Unknown History .COMPLEX PRN Blood Pressure lisinopril 40 mg tablet 40 mg PO BEDTIME 11/27/23 04/13/24 04/11/24 History gabapentin 100 mg capsule 100 mg PO TID 12/27/23 04/13/24 04/12/24 History aspirin 81 mg tablet,delayed 81 mg PO QAM 30 days #30 tabs 03/28/24 04/13/24 04/04/24 Rx release atorvastatin 40 mg tablet 40 mg PO BEDTIME 30 days #30 tabs 03/28/24 04/13/24 04/11/24 Rx carvedilol 3.125 mg tablet 3.125 mg PO BID 30 days #60 tabs 03/28/24 04/13/24 04/12/24 Rx clopidogrel 75 mg tablet 75 mg PO DAILY 30 days #30 tabs 03/28/24 04/13/24 04/12/24 Rx nitroglycerin 0.4 mg sublingual 0.4 mg sublingual Q5M PRN Chest 03/28/24 04/13/24 Unknown Rx tablet Pain 30 days #30 tabs insulin glargine 100 unit/mL (3 5 unit SUBCUT QPM 04/06/24 04/13/24 Unknown History mL) subcutaneous pen (Lantus Solostar U-100 Insulin) insulin aspart U-100 100 unit/mL 5 unit (0.05 mL) SUBCUT TID #15 mL 04/11/24 04/13/24 04/12/24 Rx (3 mL) subcutaneous pen (Novolog FlexPen U-100 Insulin aspart) isosorbide mononitrate 60 mg 120 mg (2 x 60 mg) PO DAILY 30 04/11/24 04/13/24 04/12/24 Rx tablet,extended release 24 hr days #60 tabs nifedipine 30 mg tablet,extended 60 mg (2 x 30 mg) PO DAILY 30 days 04/11/24 04/13/24 04/12/24 Rx release 24 hr #60 tabs ranolazine 500 mg tablet,extended 500 mg PO BID 30 days #60 tabs 04/11/24 04/13/24 04/12/24 Rx release,12 hr escitalopram oxalate 20 mg tablet 20 mg PO DAILY 04/13/24 04/13/24 04/12/24 History ibuprofen 200 mg tablet 400 mg PO TID Pain 04/13/24 04/13/24 Unknown History Allergies Allergy/AdvReac Type Severity Reaction Status Date / Time acetaminophen AdvReac Mild ADR-Gastrointestinal Verified 04/12/24 19:37 Upset Current Medications Generic Name Dose Route Start Last Admin Trade Name Tavaresq PRN Reason Stop Dose Admin Aspirin 81 mg 04/13/24 06:00 04/13/24 08:56 Aspirin 81 Mg Ec Tablet PO 81 mg QAM SHAY Administration Carvedilol 3.125 mg 04/13/24 09:00 04/13/24 08:56 Carvedilol 3.125 Mg Tablet PO 3.125 mg BID SHAY Administration Clopidogrel Bisulfate 75 mg 04/13/24 09:00 04/13/24 08:56 Clopidogrel 75 Mg Tablet PO 75 mg DAILY SHAY Administration Heparin Sodium (Porcine) 5,000 unit 04/13/24 07:30 04/13/24 08:56 Heparin 5,000 Unit/Ml Inj 1 Ml SUBCUT 5,000 unit Q12H SHAY Administration Insulin Human Lispro 0 unit 04/13/24 08:00 04/13/24 12:59 Insulin Lispro 100 Unit/1 Ml SUBCUT 6 unit WM&BEDTIME SHAY Administration Protocol Oxycodone HCl 5 mg 04/13/24 12:48 04/13/24 12:59 Oxycodone 5 Mg Ir Tab/Cap PO 5 mg Q6H PRN Administration MODERATE PAIN Pantoprazole Sodium 40 mg 04/13/24 09:00 04/13/24 08:[address] 40 Mg Tablet PO 40 mg DAILY SHAY Administration Ranolazine 500 mg 04/13/24 09:00 04/13/24 08:56 Ranolazine (12hr) 500 Mg Tablet PO 500 mg BID SHAY Administration Sevelamer Carbonate 800 mg 04/13/24 09:00 04/13/24 12:58 Sevelamer 800 Mg Tablet PO 800 mg TID SHAY Administration PFSH Acute 2 PFSH: Medical History Headache Accelerated hypertension Uncontrolled type 1 diabetes mellitus ESRD (end stage renal disease) Dialysis complication Hypoglycemia Hemodialysis catheter dysfunction Hyperkalemia Colitis End stage renal disease on dialysis COPD (chronic obstructive pulmonary disease) Diabetes mellitus Transaminitis Intractable nausea and vomiting Hyperlipidemia HTN (hypertension) CHF (congestive heart failure), NYHA class III Pulmonary hypertension CAD (coronary artery disease) Neurogenic bladder COVID-19 Tobacco dependence Drug abuse Anemia Community acquired pneumonia Esophagitis Long-term insulin use History of pancreatitis Celiac disease Recurrent UTI Non-alcoholic fatty liver disease Arnold-Chiari malformation Diabetic gastroparesis -continue Reglan Diabetic neuropathy associated with type 1 diabetes mellitus Headache, common migraine, intractable, with status migrainosus Pleural effusion 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 History of lung surgery -s/p LLL lobectomy secondary to cavitary pneumonia (2017) History of endoscopy History of cholecystectomy Family History Grandfather Diabetes Mother CAD (coronary artery disease) Diabetes Brother Acute lymphoblastic leukemia (ALL) in child Other Heart disease Hypertension Social History Smoking and tobacco/nicotine status: former use of tobacco/nicotine Quit status (tobacco/nicotine): has quit using Former quit date comment: She previously smoked <1/2 PPD, quit July 2023. Second hand smoke exposure: Yes Alcohol intake: never Substance/Drug Use: current Household members: children Housing: House Marital status: Single Current occupational status: unemployed Vitals/I&O/Wt Last Vital Signs Temp 98.8 F 04/13/24 08:55 Pulse 60 04/13/24 12:45 Resp 15 04/13/24 12:59 BP 142/82 04/13/24 12:45 Pulse Ox 99 04/13/24 12:00 O2 Del Method Room Air 04/13/24 08:55 04/13/24 04/13/24 04/13/24 06:59 14:59 22:59 Intake Total 444 / 444 Balance 444 / 444 Weight last 48 hrs Weight 49.895 kg Weight 49.895 kg Weight 49.85 kg Physical Exam 2 Narrative: AWAKE , ALERT heent s1s2 RRR per report lUngs clear per report No edema Data 04/13/24 04:45 04/13/24 04:45 A&P Assessment and plan (1) ESRD (end stage renal disease): 38-year-old lady with a past medical history of CAD status post stenting, end- stage renal disease, history of C. difficile, recent history of NSTEMI requiring RCA stenting, type 2 dm admitted for AMS /Hallucinations 1. AMS : WORK UP IN PROGRESS 2. ESRD dialysis - HD per TTS schedule 3. Diabetic control per hospitalist. 4. Blood pressure- resumed home meds 5. Anemia , continue Epogen with hD Patient was seen and examined with the nurse using A/V equipment for telehealth visit. The patient consents to telehealth and dialysis. Plan As above. will give epo Consult Attestations 2 Medical Necessity Statement: PER MARY Coding Level of Care Code Acute Code for Chg Fwd Diagnoses ESRD (end stage renal disease) N18.6
[2024-04-13 18:07] LABS: Glucose Point of Care 159 mg/dL (70-110)
[2024-04-13 20:15] LABS: Troponin 5 6HR Delta 10.5 ng/L (0-12)
[2024-04-13 20:16] LABS: Troponin 5 6HR 308.5 ng/L (0-10)
[2024-04-13 20:55] LABS: Glucose Point of Care 105 mg/dL (70-110)
[2024-04-13] MEDS: atorvastatin 40 mg Tablet PO (21:14)
[2024-04-14] VITALS (17 sets, daily range): BP systolic 69–166; BP diastolic 46–98; PULSE 62–92; RESP 11–18; TEMP 36.1–36.9; O2SAT 98–100
[2024-04-14] MEDS: oxyCODONE 5 mg IR Tab/Cap PO ×4 (02:06→23:59)
[2024-04-14 04:47] LABS: Basophils # 0.1 10^3/uL (0.0-0.1); Basophils % 0.7 %; Eosinophils # 0.3 10^3/uL (0.0-0.8); Eosinophils % 2.9 %; Hematocrit 38.4 % (36-47); Lymphocytes % 28.4 %; Mean Corpuscular HGB Conc 31.8 g/dL (30-55); Mean Corpuscular Hemoglobin 29.5 pg (27-33); Mean Corpuscular Volume 92.8 fl (85-98); Mean Platelet Volume 9.9 fL (7.4-10.4); Monocytes # 0.9 10^3/uL (0.2-0.9); Monocytes % 8.5 %; Neutrophils # 6.31 10^3/uL (1.8-7.7); Neutrophils % 59.2 %; Nucleated Red Blood Cells % 0 %; Platelet Count 205 10^3/cmm (157-399); Red Blood Count 4.14 10^6/uL (3.85-5.65); Red Cell Distribution Width 14.4 % (12.1-15.1); White Blood Count 10.67 10^3/uL (3.29-11.43)
[2024-04-14 05:07] LABS: Blood Urea Nitrogen 58 mg/dL (6-20); Calcium 8.4 mg/dL (8.5-10.5); Carbon Dioxide 20 mmol/L (22-29); Chloride 98 mmol/L (98-107); Creatinine Clr Calc Pharmacy 8.0936; Glomerular Filtration Rate 6.5 mL/min (90-130); Glucose 241 mg/dL (65-115); Osmolality Calculated 306 mOsm/kg (285-295); Sodium 136 mmol/L (136-145)
[2024-04-14 05:28] LABS: Anion Gap 22.3 (5-19); Potassium 4.3 mmol/L (3.5-5.1)
[2024-04-14] MEDS: aspirin 81 mg EC Tablet PO (06:11)
--- NOTE | 2024-04-14 06:15 | P.PN_ITS ---
Subjective 2 Subjective: no new c/o Medications: Reviewed: Yes Vitals/I&O/Wt Last Vital Signs Temp 98.3 F 04/13/24 20:00 Pulse 68 04/14/24 04:00 Resp 15 04/14/24 04:00 BP 125/84 04/14/24 04:00 Pulse Ox 99 04/14/24 04:00 O2 Del Method Room Air 04/14/24 04:00 04/13/24 04/13/24 04/14/24 14:59 22:59 06:59 Intake Total 444 / 444 600 / 1044 Balance 444 / 444 600 / 1044 Weight last 48 hrs Weight 49.895 kg Weight 49.895 kg Weight 49.85 kg Physical Exam 2 Narrative: AWAKE , ALERT heent s1s2 RRR per report lUngs clear per report No edema Data 04/15/24 05:17 04/15/24 05:17 A&P Assessment and plan (1) ESRD (end stage renal disease): 38-year-old lady with a past medical history of CAD status post stenting, end- stage renal disease, history of C. difficile, recent history of NSTEMI requiring RCA stenting, type 2 dm admitted for AMS /Hallucinations 1. AMS : WORK UP IN PROGRESS 2. ESRD dialysis - HD per TTS schedule 3. Diabetic control per hospitalist. 4. Blood pressure- resumed home meds 5. Anemia , continue Epogen with hD Patient was seen and examined with the nurse using A/V equipment for telehealth visit. The patient consents to telehealth and dialysis. Plan As above. will give epo Attestations 2 Medical Necessity Statement*: per medicine Coding Level of Care Code Acute Code for Chg Fwd Diagnoses ESRD (end stage renal disease) N18.6
[2024-04-14 07:11] LABS: Glucose Point of Care 267 mg/dL (70-110)
[2024-04-14] MEDS: insulin lispro 100 unit/1 mL SUBCUT ×2 (08:42→21:41)
[2024-04-14] MEDS: sevelamer 800 mg Tablet PO ×2 (08:43→18:01)
[2024-04-14] MEDS: heparin 5,000 unit/mL INJ 1 mL 5000 UNIT SUBCUT ×2 (08:43→19:48)
[2024-04-14] MEDS: clopidogrel 75 mg Tablet PO (08:43)
[2024-04-14] MEDS: pantoprazole DR 40 mg Tablet PO (08:43)
[2024-04-14] MEDS: carvedilol 3.125 mg Tablet PO (08:43)
[2024-04-14 10:11] LABS: C.Diff PCR (Lab) POSITIVE (Negative)
[2024-04-14 10:36] LABS: Clostridioides Difficile Toxin NEGATIVE (Negative)
[2024-04-14 12:03] LABS: Glucose Point of Care 73 mg/dL (70-110)
[2024-04-14] MEDS: vancomycin 125 mg Capsule PO ×3 (12:13→21:41)
--- NOTE | 2024-04-14 13:07 | PC.NURSE ---
to dialysis via bed at 1240
--- NOTE | 2024-04-14 13:28 | PC.HD ---
Heparin 1000 units loading dose administered at 1315 via HD catheter per multiple games dealer's orders.
--- NOTE | 2024-04-14 13:46 | PC.OT ---
OT EVALUATION ATTEMPTED; PATIENT IN DIALYSIS AT THIS TIME.
--- NOTE | 2024-04-14 14:11 | P.PN_ITS ---
Subjective 2 Subjective: - Patient was seen this morning, she is up to a commode, she reports that she had 7 episodes of diarrhea overnight, no nausea, no vomiting, no abdominal pain -She does report lightheadedness upon st anding up, she does have profound orthostatic hypotension -She tells me that she does not have any significant pain no headache, no blurry vision, no neck pain -She is much more alert awake alert orie nted x 3, following all commands no focal neurologic deficits Vitals/I&O/Wt Last Vital Signs Temp 98.2 F 04/14/24 13:27 Pulse 70 04/14/24 13:27 Resp 16 04/14/24 13:27 BP 166/95 04/14/24 13:27 Pulse Ox 99 04/14/24 11:40 O2 Del Method Room Air 04/14/24 11:40 04/13/24 04/14/24 04/14/24 22:59 06:59 14:59 Intake Total 600 / 1044 Balance 600 / 1044 Weight last 48 hrs Weight 50.485 kg Weight 49.895 kg Weight 49.895 kg Weight 49.85 kg Physical Exam 2 Const: COMMON NORMALS: no acute distress and patient oriented x3 Resp: COMMON NORMALS: normal respiratory effort, No retractions, No use of accessory muscles and clear to auscultation bilaterally AUSCULTATION: clear to auscultation bilaterally Cardio: COMMON NORMALS: regular rate, regular rhythm, S1 normal heart sound present and S2 normal heart sound present RATE: regular rate RHYTHM: r egular rhythm HEART SOUNDS: S1 normal heart sound present and S2 normal heart sound present GI: COMMON NORMALS: Normal to inspection, nondistended, normoactive bowel sounds present and non-tender Extremity: COMMON NORMALS: no pedal edema Neuro: COMMON NORMALS: patient oriented x3 Psych: COMMON NORMALS: mental status grossly normal Data 04/14/24 03:53 04/14/24 03:53 A&P Assessment and plan (1) End stage renal disease on dialysis: (2) Chest pain: (3) Altered mental status: (4) Uncontrolled type 1 diabetes mellitus: Qualifiers: Glycemic state: with hyperglycemia Qualified Code(s): E10.65 - Type 1 diabetes mellitus with hyperglycemia (5) Fall: Qualifiers: Encounter type: initial encounter Qualified Code(s): W19.XXXA - Unspecified fall, initial encounter (6) Blurry vision, right eye: (7) Orthostatic hypotension: (8) C. difficile colitis: Plan Altered mental status, resolved -Etiology likely related to ranolazine, orthostasis -Initial head CT no acute findings -MRI of the brain no acute findings -Kernig sign negative, Brudzinski negative Orthostatic hypotension -Blood pressure dropped to 72/55 upon standing, laying blood pressure 140/86 -Likely side effect or no losing, which has been discontinued -Hold Coreg for now -Gentle IV hydration -Neurochecks -Aspiration precautions, NIH stroke scale C. difficile colitis -Start p.o. vancomycin History of blurry vision right eye -Concerns for lens dislocation right eye during prior hospitalization, case was discussed with ophthalmology, recommended outpatient follow-up NSTEMI -No chest pain complaints, -Monitor Fall -CT head no acute findings -X-ray of bilateral knees no acute findings -X-ray of bilateral hips no acute findings -Likely related to orthostatic hypotension -PT OT Recent history of RCA stent -With NSTEMI -Currently denies chest pain -Serial EKGs, serial troponins, telemetry monitoring -Continue aspirin, statin, Plavix Type 1 diabetes mellitus, continue insulin Full code Heparin for DVT prophylaxis Attestations 2 Medical Necessity Statement*: Patient requires hospitalization for orthostatic hypotension, C. difficile colitis, follow Diagnoses End stage renal disease on dialysis N18.6; Z99.2 Chest pain R07.9 Altered mental status R41.82 Uncontrolled type 1 diabetes mellitus with hyperglycemia E10.65 Glycemic state: with hyperglycemia Fall W19.XXXA Encounter type: initial encounter Blurry vision, right eye H53.8 Orthostatic hypotension I95.1 C. difficile colitis A04.72
--- NOTE | 2024-04-14 16:49 | PC.NURSE ---
back from dialysis via bed.tolerated procedure well
[2024-04-14] MEDS: sodium chloride 0.9% 500 ML 75 ML IV (16:54)
[2024-04-14 17:23] LABS: Glucose Point of Care 113 mg/dL (70-110)
[2024-04-14 21:11] LABS: Glucose Point of Care 233 mg/dL (70-110)
[2024-04-14] MEDS: atorvastatin 40 mg Tablet PO (21:41)
[2024-04-15] VITALS (12 sets, daily range): BP systolic 86–159; BP diastolic 58–94; PULSE 76–91; RESP 10–22; TEMP 36.6–37.5; O2SAT 96–100
[2024-04-15 05:41] LABS: Basophils # 0.1 10^3/uL (0.0-0.1); Basophils % 0.5 %; Eosinophils # 0.4 10^3/uL (0.0-0.8); Eosinophils % 3.3 %; Hematocrit 38.5 % (36-47); Lymphocytes # 1.3 10^3/uL (0.8-4.8); Lymphocytes % 11.3 %; Mean Corpuscular HGB Conc 31.9 g/dL (30-55); Mean Corpuscular Hemoglobin 29.7 pg (27-33); Mean Platelet Volume 10.1 fL (7.4-10.4); Monocytes # 0.6 10^3/uL (0.2-0.9); Monocytes % 5.2 %; Neutrophils # 8.76 10^3/uL (1.8-7.7); Neutrophils % 79.2 %; Nucleated Red Blood Cells % 0 %; Platelet Count 162 10^3/cmm (157-399); Red Blood Count 4.14 10^6/uL (3.85-5.65); Red Cell Distribution Width 14.7 % (12.1-15.1); White Blood Count 11.06 10^3/uL (3.29-11.43)
[2024-04-15 06:02] LABS: Anion Gap 20.3 (5-19); Blood Urea Nitrogen 39 mg/dL (6-20); Calcium 8.5 mg/dL (8.5-10.5); Carbon Dioxide 23 mmol/L (22-29); Chloride 99 mmol/L (98-107); Creatinine Clr Calc Pharmacy 11.2884; Glomerular Filtration Rate 9.3 mL/min (90-130); Glucose 223 mg/dL (65-115); Osmolality Calculated 302 mOsm/kg (285-295); Potassium 4.3 mmol/L (3.5-5.1); Sodium 138 mmol/L (136-145)
[2024-04-15 06:29] LABS: Glucose Point of Care 224 mg/dL (70-110)
[2024-04-15] MEDS: sevelamer 800 mg Tablet PO ×3 (06:37→18:33)
[2024-04-15] MEDS: heparin 5,000 unit/mL INJ 1 mL 5000 UNIT SUBCUT ×2 (06:37→19:49)
[2024-04-15] MEDS: aspirin 81 mg EC Tablet PO (06:37)
--- NOTE | 2024-04-15 08:13 | P.PN_ITS ---
Subjective 2 Subjective: no new c/o Medications: Reviewed: Yes Vitals/I&O/Wt Last Vital Signs Temp 98.7 F 04/15/24 07:58 Pulse 81 04/15/24 07:58 Resp 11 L 04/15/24 07:58 BP 140/89 04/15/24 07:58 Pulse Ox 97 04/15/24 07:58 O2 Del Method Room Air 04/15/24 07:58 04/14/24 04/15/24 04/15/24 22:59 06:59 14:59 Intake Total 1020 / 1020 800 / 1820 Output Total 3200 / 3200 500 / 3700 Balance -2180 / -2180 300 / -1880 Weight last 48 hrs Weight 52.435 kg Weight 50.8 kg Weight 50.485 kg Physical Exam 2 Narrative: AWAKE , ALERT heent s1s2 RRR per report lUngs clear per report No edema Data 04/16/24 05:27 04/15/24 05:17 A&P Assessment and plan (1) ESRD (end stage renal disease): 38-year-old lady with a past medical history of CAD status post stenting, end- stage renal disease, history of C. difficile, recent history of NSTEMI requiring RCA stenting, type 2 dm admitted for AMS /Hallucinations 1. AMS : WORK UP IN PROGRESS 2. ESRD dialysis - HD per TTS schedule 3. Diabetic control per hospitalist. 4. Blood pressure- resumed home meds 5. Anemia , continue Epogen with hD Patient was seen and examined with the nurse using A/V equipment for telehealth visit. The patient consents to telehealth and dialysis. Plan As above. will give epo Attestations 2 Medical Necessity Statement*: per wilson Coding Level of Care Code Acute Code for Chg Fwd Diagnoses ESRD (end stage renal disease) N18.6
[2024-04-15] MEDS: insulin lispro 100 unit/1 mL SUBCUT ×3 (08:21→21:15)
[2024-04-15] MEDS: clopidogrel 75 mg Tablet PO (08:22)
[2024-04-15] MEDS: vancomycin 125 mg Capsule PO ×4 (08:22→21:15)
[2024-04-15] MEDS: pantoprazole DR 40 mg Tablet PO (08:22)
[2024-04-15] MEDS: oxyCODONE 5 mg IR Tab/Cap PO ×2 (08:24→18:33)
--- NOTE | 2024-04-15 09:36 | PC.SOCIAL ---
IMM Update Pg. 2 of IMM updated and reviewed with patient, who verbalized understanding. Copy provided.
[2024-04-15 12:20] LABS: Glucose Point of Care 81 mg/dL (70-110)
--- NOTE | 2024-04-15 14:59 | P.PN_ITS ---
Subjective 2 Subjective: Patient was seen this morning, she does report dizziness upon standing up, her orthostatics remain positive, she continues to have episodes of dizziness, her diarrhea has resolved, discussed continued inpatient monitoring holding her blood pressure medications Vitals/I&O/Wt Last Vital Signs Temp 97.9 F 04/15/24 12:00 Pulse 79 04/15/24 12:00 Resp 17 04/15/24 12:00 BP 130/87 04/15/24 12:00 Pulse Ox 97 04/15/24 12:00 O2 Del Method Room Air 04/15/24 12:00 04/14/24 04/15/24 04/15/24 22:59 06:59 14:59 Intake Total 1020 / 1020 800 / 1820 240 / 240 Output Total 3200 / 3200 500 / 3700 Balance -2180 / -2180 300 / -1880 240 / 240 Weight last 48 hrs Weight 52.435 kg Weight 50.8 kg Weight 50.485 kg Physical Exam 2 Const: COMMON NORMALS: no acute distress and patient oriented x3 Resp: COMMON NORMALS: normal respiratory effort, No retractions, No use of accessory muscles and clear to auscultation bilaterally AUSCULTATION: clear to auscultation bilaterally Cardio: COMMON NORMALS: regular rate, regular rhythm, S1 normal heart sound present and S2 normal heart sound present RATE: regular rate RHYTHM: r egular rhythm HEART SOUNDS: S1 normal heart sound present and S2 normal heart sound present GI: COMMON NORMALS: Normal to inspection, nondistended, normoactive bowel sounds present and non-tender Extremity: COMMON NORMALS: no pedal edema Neuro: COMMON NORMALS: patient oriented x3 Psych: COMMON NORMALS: mental status grossly normal Data 04/15/24 05:17 04/15/24 05:17 A&P Assessment and plan (1) End stage renal disease on dialysis: (2) Chest pain: (3) Altered mental status: (4) Uncontrolled type 1 diabetes mellitus: Qualifiers: Glycemic state: with hyperglycemia Qualified Code(s): E10.65 - Type 1 diabetes mellitus with hyperglycemia (5) Fall: Qualifiers: Encounter type: initial encounter Qualified Code(s): W19.XXXA - Unspecified fall, initial encounter (6) Blurry vision, right eye: (7) Orthostatic hypotension: (8) C. difficile colitis: Plan Altered mental status, resolved -Etiology likely related to ranolazine, orthostasis -Initial head CT no acute findings -MRI of the brain no acute findings -Kernig sign negative, Brudzinski negative Orthostatic hypotension -Blood pressure dropped to 72/55 upon standing, laying blood pressure 140/86 -Likely side effect or no losing, which has been discontinued -Hold Coreg for now -Likely secondary to ranolazine, elimination half-life 7 hours, its metabolites have a half-life of 6 to 22 hours, not likely to be significantly dialyzed, excretion primarily in urine, patient urinates minimally, 25% mostly as active and inactive metabolites through feces -Neurochecks -Aspiration precautions, NIH stroke scale C. difficile colitis -Start p.o. vancomycin History of blurry vision right eye -Concerns for lens dislocation right eye during prior hospitalization, case was discussed with ophthalmology, recommended outpatient follow-up NSTEMI -No chest pain complaints, -Monitor Fall -CT head no acute findings -X-ray of bilateral knees no acute findings -X-ray of bilateral hips no acute findings -Likely related to orthostatic hypotension -PT OT Recent history of RCA stent -With NSTEMI -Currently denies chest pain -Serial EKGs, serial troponins, telemetry monitoring -Continue aspirin, statin, Plavix Type 1 diabetes mellitus, continue insulin Full code Heparin for DVT prophylaxis Attestations 2 Medical Necessity Statement*: Patient requires hospitalization for persistent profound orthostatic hypotension likely side effect or nausea, Coreg, C. difficile colitis Diagnoses End stage renal disease on dialysis N18.6; Z99.2 Chest pain R07.9 Altered mental status R41.82 Uncontrolled type 1 diabetes mellitus with hyperglycemia E10.65 Glycemic state: with hyperglycemia Fall W19.XXXA Encounter type: initial encounter Blurry vision, right eye H53.8 Orthostatic hypotension I95.1 C. difficile colitis A04.72
[2024-04-15 17:00] LABS: Glucose Point of Care 164 mg/dL (70-110)
[2024-04-15 20:47] LABS: Glucose Point of Care 194 mg/dL (70-110)
[2024-04-15] MEDS: atorvastatin 40 mg Tablet PO (21:15)
[2024-04-16] VITALS (13 sets, daily range): BP systolic 112–205; BP diastolic 72–114; PULSE 73–94; RESP 12–23; TEMP 36.1–37.1; O2SAT 98–100
[2024-04-16] MEDS: oxyCODONE 5 mg IR Tab/Cap PO ×4 (01:01→23:20)
[2024-04-16] MEDS: aspirin 81 mg EC Tablet PO (05:30)
[2024-04-16 05:38] LABS: Basophils % 0.5 %; Eosinophils # 0.4 10^3/uL (0.0-0.8); Eosinophils % 4.5 %; Hematocrit 36.1 % (36-47); Lymphocytes # 1.2 10^3/uL (0.8-4.8); Lymphocytes % 14.1 %; Mean Corpuscular HGB Conc 31.9 g/dL (30-55); Mean Corpuscular Hemoglobin 29.2 pg (27-33); Mean Corpuscular Volume 91.6 fl (85-98); Mean Platelet Volume 10.9 fL (7.4-10.4); Monocytes # 0.5 10^3/uL (0.2-0.9); Monocytes % 6.1 %; Neutrophils # 6.23 10^3/uL (1.8-7.7); Neutrophils % 74.4 %; Nucleated Red Blood Cells % 0 %; Platelet Count 142 10^3/cmm (157-399); Red Blood Count 3.94 10^6/uL (3.85-5.65); Red Cell Distribution Width 14.6 % (12.1-15.1); White Blood Count 8.37 10^3/uL (3.29-11.43)
--- NOTE | 2024-04-16 05:45 | P.PN_ITS ---
Subjective 2 Subjective: no new c/o Medications: Reviewed: Yes Vitals/I&O/Wt Last Vital Signs Temp 98.2 F 04/16/24 00:00 Pulse 77 04/16/24 04:00 Resp 22 H 04/16/24 04:00 BP 178/107 04/16/24 04:00 Pulse Ox 98 04/16/24 04:00 O2 Del Method Room Air 04/16/24 04:00 04/15/24 04/15/24 04/16/24 14:59 22:59 06:59 Intake Total 240 / 240 300 / 540 Balance 240 / 240 300 / 540 Weight last 48 hrs Weight 52.435 kg Weight 52.435 kg Weight 50.8 kg Weight 50.485 kg Physical Exam 2 Narrative: AWAKE , ALERT heent s1s2 RRR per report lUngs clear per report No edema Data 04/16/24 05:27 04/16/24 05:27 A&P Assessment and plan (1) ESRD (end stage renal disease): 38-year-old lady with a past medical history of CAD status post stenting, end- stage renal disease, history of C. difficile, recent history of NSTEMI requiring RCA stenting, type 2 dm admitted for AMS /Hallucinations 1. AMS : WORK UP IN PROGRESS 2. ESRD dialysis - HD per TTS schedule 3. Diabetic control per hospitalist. 4. Blood pressure- resumed home meds 5. Anemia , continue Epogen with hD Patient was seen and examined with the nurse using A/V equipment for telehealth visit. The patient consents to telehealth and dialysis. Plan As above. will give epo Attestations 2 Medical Necessity Statement*: per wilson Coding Level of Care Code Acute Code for Chg Fwd Diagnoses ESRD (end stage renal disease) N18.6
[2024-04-16 06:05] LABS: Anion Gap 21.8 (5-19); Blood Urea Nitrogen 56 mg/dL (6-20); Calcium 8.8 mg/dL (8.5-10.5); Carbon Dioxide 19 mmol/L (22-29); Chloride 101 mmol/L (98-107); Creatinine Clr Calc Pharmacy 8.7612; Glomerular Filtration Rate 6.9 mL/min (90-130); Glucose 194 mg/dL (65-115); Osmolality Calculated 305 mOsm/kg (285-295); Potassium 4.8 mmol/L (3.5-5.1); Sodium 137 mmol/L (136-145)
[2024-04-16 06:33] LABS: Glucose Point of Care 193 mg/dL (70-110)
[2024-04-16] MEDS: pantoprazole DR 40 mg Tablet PO (08:12)
[2024-04-16] MEDS: clopidogrel 75 mg Tablet PO (08:12)
[2024-04-16] MEDS: vancomycin 125 mg Capsule PO ×3 (08:12→20:12)
[2024-04-16] MEDS: sevelamer 800 mg Tablet PO ×2 (08:12→16:17)
[2024-04-16] MEDS: insulin lispro 100 unit/1 mL SUBCUT ×2 (08:20→18:15)
[2024-04-16] MEDS: albumin 12.5 GM/50 ML VIAL IV ×2 (12:30→13:05)
--- NOTE | 2024-04-16 15:33 | P.PN_ITS ---
Subjective 2 Subjective: Patient was seen this morning she continues to complain of dizziness upon standing up although improved compared to yesterday denies any fevers, no chills, no cough she did have episode of diarrhea overnight but it has resolved this morning, denies any abdominal pain, no nausea, no vomiting her orthostatic vitals yesterday afternoon dropped more than 50 points upon standing up, will recheck orthostatic vitals today discussed possible discharge depending on if her orthostats remain positive, discussed as ranolazine metabolism and excretion Vitals/I&O/Wt Last Vital Signs Temp 96.9 F L 04/16/24 07:36 Pulse 78 04/16/24 07:36 Resp 23 H 04/16/24 10:07 BP 112/72 04/16/24 07:36 Pulse Ox 99 04/16/24 07:36 O2 Del Method Room Air 04/16/24 07:36 04/16/24 04/16/24 04/16/24 06:59 14:59 22:59 Intake Total 422 / 422 Balance 422 / 422 Weight last 48 hrs Weight 52.435 kg Weight 52.435 kg Weight 50.8 kg Physical Exam 2 Const: COMMON NORMALS: no acute distress and patient oriented x3 Resp: COMMON NORMALS: normal respiratory effort, No retractions, No use of accessory muscles and clear to auscultation bilaterally AUSCULTATION: clear to auscultation bilaterally Cardio: COMMON NORMALS: regular rate, regular rhythm, S1 normal heart sound present and S2 normal heart sound present RATE: regular rate RHYTHM: r egular rhythm HEART SOUNDS: S1 normal heart sound present and S2 normal heart sound present GI: COMMON NORMALS: Normal to inspection, nondistended, normoactive bowel sounds present and non-tender Extremity: COMMON NORMALS: no pedal edema Neuro: COMMON NORMALS: patient oriented x3 Psych: COMMON NORMALS: mental status grossly normal Data 04/16/24 05:27 04/16/24 05:27 A&P Assessment and plan (1) End stage renal disease on dialysis: (2) Chest pain: (3) Altered mental status: (4) Uncontrolled type 1 diabetes mellitus: Qualifiers: Glycemic state: with hyperglycemia Qualified Code(s): E10.65 - Type 1 diabetes mellitus with hyperglycemia (5) Fall: Qualifiers: Encounter type: initial encounter Qualified Code(s): W19.XXXA - Unspecified fall, initial encounter (6) Blurry vision, right eye: (7) Orthostatic hypotension: (8) C. difficile colitis: Plan Altered mental status, resolved -Etiology likely related to ranolazine, orthostasis -Initial head CT no acute findings -MRI of the brain no acute findings -Kernig sign negative, Brudzinski negative Orthostatic hypotension -Systolic blood pressure drops more than 50 points upon standing up yesterday -Likely side effect of ranolazine, which has been discontinued -Hold Coreg for now -Likely secondary to ranolazine, elimination half-life 7 hours, its metabolites have a half-life of 6 to 22 hours, not likely to be significantly dialyzed, excretion primarily in urine, patient urinates minimally, 25% mostly as active and inactive metabolites through feces -Neurochecks -Aspiration precautions, NIH stroke scale C. difficile colitis p.o. vancomycin History of blurry vision right eye -Concerns for lens dislocation right eye during prior hospitalization, case was discussed with ophthalmology, recommended outpatient follow-up NSTEMI -No chest pain complaints, -Monitor Fall -CT head no acute findings -X-ray of bilateral knees no acute findings -X-ray of bilateral hips no acute findings -Likely related to orthostatic hypotension -PT OT Recent history of RCA stent -With NSTEMI -Currently denies chest pain -Serial EKGs, serial troponins, telemetry monitoring -Continue aspirin, statin, Plavix Type 1 diabetes mellitus, continue insulin Full code Heparin for DVT prophylaxis Plan for today monitor orthostatic vitals, continue p.o. vancomycin, discharge depending on if her orthostatic vitals remain positive Attestations 2 Medical Necessity Statement*: Patient requires hospitalization for ranolazine toxicity, orthostatic hypotension Diagnoses End stage renal disease on dialysis N18.6; Z99.2 Chest pain R07.9 Altered mental status R41.82 Uncontrolled type 1 diabetes mellitus with hyperglycemia E10.65 Glycemic state: with hyperglycemia Fall W19.XXXA Encounter type: initial encounter Blurry vision, right eye H53.8 Orthostatic hypotension I95.1 C. difficile colitis A04.72
[2024-04-16 17:31] LABS: Glucose Point of Care 155 mg/dL (70-110)
[2024-04-16] MEDS: atorvastatin 40 mg Tablet PO (20:12)
[2024-04-16] MEDS: heparin 5,000 unit/mL INJ 1 mL 5000 UNIT SUBCUT (20:12)
[2024-04-16 20:32] LABS: Glucose Point of Care 116 mg/dL (70-110)
[2024-04-16] MEDS: ondansetron 2 mg/ML SDV 2 mL 4 MG IVP (23:20)
[2024-04-17] VITALS (7 sets, daily range): BP systolic 99–196; BP diastolic 58–119; PULSE 78–100; RESP 14–26; TEMP 36.4–37; O2SAT 92–100
[2024-04-17 05:23] LABS: Basophils % 0.6 %; Eosinophils # 0.4 10^3/uL (0.0-0.8); Eosinophils % 6.1 %; Hematocrit 36.3 % (36-47); Lymphocytes # 1.2 10^3/uL (0.8-4.8); Lymphocytes % 19.3 %; Mean Corpuscular HGB Conc 31.7 g/dL (30-55); Mean Corpuscular Volume 91.4 fl (85-98); Mean Platelet Volume 10.7 fL (7.4-10.4); Monocytes # 0.5 10^3/uL (0.2-0.9); Monocytes % 8.3 %; Neutrophils # 4.12 10^3/uL (1.8-7.7); Neutrophils % 65.5 %; Nucleated Red Blood Cells % 0 %; Platelet Count 149 10^3/cmm (157-399); Red Blood Count 3.97 10^6/uL (3.85-5.65); Red Cell Distribution Width 14.6 % (12.1-15.1); White Blood Count 6.28 10^3/uL (3.29-11.43)
[2024-04-17 05:49] LABS: Blood Urea Nitrogen 29 mg/dL (6-20); Calcium 9.2 mg/dL (8.5-10.5); Carbon Dioxide 24 mmol/L (22-29); Chloride 100 mmol/L (98-107); Creatinine Clr Calc Pharmacy 15.3398; Glucose 135 mg/dL (65-115); Osmolality Calculated 298 mOsm/kg (285-295); Sodium 140 mmol/L (136-145)
[2024-04-17 05:54] LABS: Anion Gap 20.3 (5-19); Potassium 4.3 mmol/L (3.5-5.1)
[2024-04-17] MEDS: oxyCODONE 5 mg IR Tab/Cap PO (06:28)
[2024-04-17] MEDS: sevelamer 800 mg Tablet PO (06:28)
[2024-04-17] MEDS: ondansetron 2 mg/ML SDV 2 mL 4 MG IVP (06:28)
[2024-04-17] MEDS: aspirin 81 mg EC Tablet PO (06:28)
[2024-04-17 06:29] LABS: Glucose Point of Care 136 mg/dL (70-110)
--- NOTE | 2024-04-17 08:13 | PC.SOCIAL ---
IMM Update Pg. 2 of IMM updated. Copy provided at bedside.
[2024-04-17] MEDS: heparin 5,000 unit/mL INJ 1 mL 5000 UNIT SUBCUT (08:35)
[2024-04-17] MEDS: sodium chloride 0.9% 500 ML IV ×2 (08:36→10:14)
[2024-04-17] MEDS: clopidogrel 75 mg Tablet PO (10:13)
[2024-04-17] MEDS: vancomycin 125 mg Capsule PO (10:13)
--- NOTE | 2024-04-17 11:22 | P.DS_ITS ---
Discharge Providers Date of Admission: 04/12/24 21:28 Date of Discharge: April 17, 2024 Attending Provider at Admission: Ruy Edgar MD Attending Provider at Discharge: Shola Carrera MD Primary Care Provider: SUZANNE Dias Diagnoses at Discharge Discharge Diagnosis (1) End stage renal disease on dialysis: Status: Acute (2) Chest pain: Status: Acute (3) Altered mental status: Status: Acute (4) Uncontrolled type 1 diabetes mellitus: Status: Acute Qualifiers: Glycemic state: with hyperglycemia Qualified Code(s): E10.65 - Type 1 diabetes mellitus with hyperglycemia (5) Fall: Status: Acute Qualifiers: Encounter type: initial encounter Qualified Code(s): W19.XXXA - Unspecified fall, initial encounter (6) Blurry vision, right eye: Status: Acute (7) Orthostatic hypotension: Status: Acute (8) C. difficile colitis: Status: Acute Reason for Visit Reason for Visit: CP,Halluciinations Hospital Course Hospital Course This is a 38-year-old male with a past medical history of end-stage renal disease on dialysis, CAD, type 2 diabetes mellitus, recent history of cardiac stenting, who presents to [facility] due to altered mental status, Patient had a prolonged hospitalization please look at my last progress note for further detail For patient's altered mental status, likely an effect of ranolazine, ranolazine was stopped, head CT within normal limits MRI of the brain no acute findings, will be discharged home Patient also had C. difficile colitis during hospitalization, managed on p.o. vancomycin diarrhea has resolved she has received over 48 hours of inpatient treatment, discharged on p.o. vancomycin as outpatient For her history of blurry vision right eye, concerns for lens dislocation of right eye during prior hospitalization, patient has to follow-up with Dr. Navas as outpatient For patient's orthostatic hypotension -Patient is orthostatic hypotension was difficult to manage during hospitalization resulting in a prolonged hospitalization -Her blood pressure medications were held, Coreg were held -Orthostatic hypotension persistence likely secondary to her ranolazine side effect, especially as patient is on dialysis and end-stage renal disease -Patient was kept as inpatient due to persistent orthostatic hypotension likely due to effect of ranolazine, elimination of ranolazine is significantly decreased given her end-stage renal disease -She was managed with fluid therapy, holding all her blood pressure medications, but to some degree her orthostatic vitals persist -He continues to ambulate without any significant symptomatology but at times does feel lightheaded but quickly resolves -this is difficult as with her end-stage renal disease and hypertension at times her resting blood pressure remains elevated ? For now we have instructed to increase her salt in her diet, discharged on compression stockings, blood pressure medications have been held, ranolazine has been discontinued -I have discharged her on clonidine to be used as needed for hypertensive urgency with parameters -Did discuss with her that if her blood pressures continue to titrate upwards, she can resume Imdur at 60 mg daily Physical Exam Const: COMMON NORMALS: no acute distress and patient oriented x3 Resp: COMMON NORMALS: normal respiratory effort, No retractions, No use of accessory muscles and clear to auscultation bilaterally AUSCULTATION: clear to auscultation bilaterally Cardio: COMMON NORMALS: regular rate, regular rhythm, S1 normal heart sound present and S2 normal heart sound present RATE: regular rate RHYTHM: regular rhythm HEART SOUNDS: S1 normal heart sound present and S2 normal heart sound present GI: COMMON NORMALS: Normal to inspection, nondistended, normoactive bowel sounds present and non-tender Extremity: COMMON NORMALS: no pedal edema Neuro: COMMON NORMALS: patient oriented x3 Psych: COMMON NORMALS: mental status grossly normal Discharge Data Studies Completed and Pending Completed Studies During Hospitalization Category Date Time Status CT head wo con* [id number] Stat Cat Scan 04/12/24 19:[address] head wo con* [id number] Stat Cat Scan 04/13/24 10:19 Completed XR chest 1V portable [id number] Stat Exams 04/12/24 19:36 Completed XR hip BI m 5V wo/w pel* [id number] Routine Exams 04/13/24 10:20 Completed XR knee LT 1-2V [id number] Routine Exams 04/13/24 10:20 Completed XR knee RT 1-2V [id number] Routine Exams 04/13/24 10:20 Completed MR head wo/w con [id number] Routine MRI 04/13/24 00:03 Completed Pending at discharge Category Date Time Status Basic Metabolic Panel AM LABS Lab 04/18/24 04:00 Ordered Basic Metabolic Panel AM LABS Lab 04/19/24 04:00 Ordered Complete Blood Count w/Auto AM LABS Lab 04/18/24 04:00 Ordered Complete Blood Count w/Auto AM LABS Lab 04/19/24 04:00 Ordered Radiology Impressions Chest X-Ray 04/12/24 19:36 IMPRESSION: No radiographically apparent acute cardiopulmonary disease. Chronic postsurgical changes and stable position of the dialysis catheter from prior. Head MRI 04/13/24 00:03 IMPRESSION: 1. No acute infarct. No significant edema. 2. Significant motion artifact obscuring portions of the brain. 3. Small vessel ischemic changes described in 2019 are not apparent due to the motion. No prior infarct. 4. No enhancing mass. 5. Mild cerebellar tonsil ectopia. Head CT 04/13/24 10:19 IMPRESSION: 1. No acute intracranial finding. 2. Soft tissue thickening in the posterior aspect of the RIGHT optic globe which is unchanged from the prior study. Hip/Pelvis X-Ray 04/13/24 10:20 IMPRESSION: No acute osseous findings. Knee X-Ray 04/13/24 10:20 IMPRESSION: 1. No fracture or other significant finding. No change. Laboratory Results WBC 6.28 10^3/uL (3.29-11.43) 04/17/24 04:50 Corrected WBC Cancelled 04/12/24 20:32 RBC 3.97 10^6/uL (3.85-5.65) 04/17/24 04:50 Hgb 11.50 g/dL (11.27-16.99) 04/17/24 04:50 Hct 36.3 % (36-47) 04/17/24 04:50 MCV 91.4 fl (85-98) 04/17/24 04:50 MCH 29.0 pg (27-33) 04/17/24 04:50 MCHC 31.7 g/dL (30-55) 04/17/24 04:50 RDW 14.6 % (12.1-15.1) 04/17/24 04:50 Plt Count 149 10^3/cmm (157-399) L 04/17/24 04:50 MPV 10.7 fL (7.4-10.4) H 04/17/24 04:50 Gran % Cancelled 04/12/24 20:32 Neut % (Auto) 65.5 % 04/17/24 04:50 Lymph % (Auto) 19.3 % 04/17/24 04:50 [place] % (Auto) 8.3 % 04/17/24 04:50 Eos % (Auto) 6.1 % 04/17/24 04:50 Baso % (Auto) 0.6 % 04/17/24 04:50 Neut # (Auto) 4.12 10^3/uL (1.8-7.7) 04/17/24 04:50 Lymph # (Auto) 1.2 10^3/uL (0.8-4.8) 04/17/24 04:50 [place] # (Auto) 0.5 10^3/uL (0.2-0.9) 04/17/24 04:50 Eos # (Auto) 0.4 10^3/uL (0.0-0.8) 04/17/24 04:50 Baso # (Auto) 0.0 10^3/uL (0.0-0.1) 04/17/24 04:50 Absolute Gran (auto) Cancelled 04/12/24 20:32 Nucleated RBC % (auto) 0 % 04/17/24 04:50 Nucleated RBCs # 0.0 /100WBC 04/17/24 04:50 Specimen Type Arterial 04/12/24 20:20 Sample Site Brachial, right 04/12/24 20:20 ABG pH 7.38 (7.35-7.45) 04/12/24 20:20 ABG pCO2 42.4 mmHg (35-45) 04/12/24 20:20 ABG pO2 70.9 mmHg (80.0-100.0) L 04/12/24 20:20 ABG PO2/FiO2 Ratio 337 04/12/24 20:20 ABG HCO3 25.0 mmol/L (22-26) 04/12/24 20:20 ABG O2 Saturation 94.9 04/12/24 20:20 ABG Base Excess -0.2 mmol/L (-2.0-2.0) 04/12/24 20:20 Braulio Test Pos 04/12/24 20:20 A-a O2 Gradient 3.6 mmHg (5-10) L 04/12/24 20:20 Hematocrit 38.6 % (37-47) 04/12/24 20:20 Hgb O2 Saturation 92.9 % (95-100) L 04/12/24 20:20 Carboxyhemoglobin 1.1 %THgb (0.4-20.1) 04/12/24 20:20 Methemoglobin 1.1 % (0.4-1.5) 04/12/24 20:20 Total Hemoglobin 12.6 g/dL (12-16) 04/12/24 20:20 Sodium 141.0 mmol/L (131-143) 04/12/24 20:20 Potassium 3.5 mmol/L (3.5-5.0) 04/12/24 20:20 Glucose 147.0 mg/dL (70-115) H 04/12/24 20:20 Ionized Calcium 1.2 mmol/L (1.1-1.4) 04/12/24 20:20 O2 Delivery Device Nc 04/12/24 20:20 FiO2 21.0 % 04/12/24 20:20 Line Driver ID [email or web address] 04/12/24 20:20 Sodium 140 mmol/L (136-145) 04/17/24 04:50 Potassium 4.3 mmol/L (3.5-5.1) 04/17/24 04:50 Chloride 100 mmol/L (98-107) 04/17/24 04:50 Carbon Dioxide 24 mmol/L (22-29) 04/17/24 04:50 Anion Gap 20.3 (5-19) H 04/17/24 04:50 BUN 29 mg/dL (6-20) H 04/17/24 04:50 Creatinine 3.9 mg/dL (0.5-0.9) H 04/17/24 04:50 GFR Calculation 13.0 mL/min (90-130) L 04/17/24 04:50 Glucose 135 mg/dL (65-115) H 04/17/24 04:50 POC Glucose 136 mg/dL (70-110) H 04/17/24 06:21 Calculated Osmolality 298 mOsm/kg (285-295) H 04/17/24 04:50 Lactic Acid 1.0 mmol/L (0.5-2.2) 04/12/24 21:01 Calcium 9.2 mg/dL (8.5-10.5) 04/17/24 04:50 Phosphorus 4.9 mg/dL (2.5-4.5) H 04/12/24 21:01 Total Bilirubin 0.3 mg/dL (0.15-1.2) 04/13/24 04:45 AST 19 U/L (0-32) 04/13/24 04:45 ALT 13 U/L (0-33) 04/13/24 04:45 Alkaline Phosphatase 126 U/L (35-105) H 04/13/24 04:45 Troponin T 5th Gen ng/L 261 ng/L (0-10) H* 04/12/24 21:01 Troponin T Baseline 298 ng/L (0-10) H* 04/13/24 11:12 Troponin T 120 Minute 302.7 ng/L (0-10) H 04/13/24 13:36 Delta Troponin T 4.7 ABS# (0-10) 04/13/24 13:36 Troponin T Hi Sens 6Hr 308.5 ng/L (0-10) H 04/13/24 19:34 Troponin T Hi Sens 6Hr Delta 10.5 ng/L (0-12) 04/13/24 19:34 C-Reactive Protein 3.0 mg/L (0.0-4.9) 04/12/24 21:01 Total Protein 7.6 g/dL (6.6-8.7) 04/13/24 04:45 Albumin 4.2 g/dL (3.5-5.2) 04/13/24 04:45 Globulin 3.4 g/dL (1.3-4.6) 04/13/24 04:45 TSH 6.49 uIU/mL (0.27-4.20) H 04/12/24 21:01 Urine Color Yellow (Yellow) 04/12/24 17:52 Urine Appearance Clear (CLEAR) 04/12/24 17:52 Urine pH 7.0 (5-7) 04/12/24 17:52 Ur Specific [place] 1.026 (1.005-1.030) 04/12/24 17:52 Urine Protein 4+ (Negative) A 04/12/24 17:52 Urine Glucose (UA) 2+ (Normal) H 04/12/24 17:52 Urine Ketones 1+ (Negative) H 04/12/24 17:52 Urine Blood 2+ (Negative) A 04/12/24 17:52 Urine Nitrate Negative (Negative) 04/12/24 17:52 Urine Bilirubin Negative (Negative) 04/12/24 17:52 Urine Urobilinogen 0.2 mg/dL (Negative) 04/12/24 17:52 Ur Leukocyte Esterase Negative (Negative) 04/12/24 17:52 Urine RBC 11-20 /hpf (0-2) H 04/12/24 17:52 Urine WBC 0-5 /hpf (0-5) 04/12/24 17:52 Ur Squamous Epith Cells 0-5 /hpf (0-5) 04/12/24 17:52 Amorphous Sediment Not Reportable 04/12/24 17:52 Urine Bacteria None seen /hpf (NONE) 04/12/24 17:52 Hyaline Casts 9.91 /lpf 04/12/24 17:52 Salicylates < 0.3 mg/dL (3-10) L 04/12/24 21:01 Urine Opiates Screen Positive ng/mL (Negative) H 04/12/24 17:52 Acetaminophen < 5.0 ug/mL (10-30) L 04/12/24 21:01 Ur Barbiturates Screen Negative ng/mL (Negative) 04/12/24 17:52 Ur Phencyclidine Scrn Negative ng/mL (Negative) 04/12/24 17:52 Ur Amphetamines Screen Negative ng/mL (Negative) 04/12/24 17:52 U Benzodiazepines Scrn Negative ng/mL (Negative) 04/12/24 17:52 Urine Cocaine Screen Negative ng/mL (Negative) 04/12/24 17:52 U Marijuana (THC) Screen Negative ng/mL (Negative) 04/12/24 17:52 Ethyl Alcohol < 10 mg/dL (0-10) 04/12/24 21:01 C. difficile (PCR) Positive (Negative) H 04/14/24 08:30 C.difficile Tox Confrm Negative (Negative) 04/14/24 08:30 Coronavirus (PCR) Negative (Negative) 04/12/24 20:55 Influenza A (PCR) Negative (Negative) 04/12/24 20:55 Influenza Type B (PCR) Negative (Negative) 04/12/24 20:55 RSV (PCR) Negative (Negative) 04/12/24 20:55 Vitals Last Vital Signs Temp 98.6 F 04/17/24 07:42 Pulse 88 04/17/24 07:42 Resp 14 04/17/24 06:28 BP 128/86 04/17/24 07:42 Pulse Ox 100 04/17/24 04:00 O2 Del Method Room Air 04/17/24 04:00 Discharge Plan Discharge Patient Disposition: Home Condition: Stable Prescriptions: New vancomycin 125 mg Capsule 125 mg PO QID 8 Days Qty: 32 0RF Continued (DME) Dexcom G6 Nursery Attendant Misc See Rx Instructions .Route Qty: 1 0RF Rx Instructions: As directed (DME) Dexcom G6 Sensor Device See Rx Instructions .Route Qty: 3 0RF Rx Instructions: As directed (DME) Dexcom G6 Transmitter Device See Rx Instructions .Route Qty: 1 0RF Rx Instructions: As directed clopidogrel 75 mg Tablet 75 mg PO DAILY 30 Days Qty: 30 0RF nitroglycerin 0.4 mg Tablet, Sublingual 0.4 mg sublingual Q5M PRN (Reason: Chest Pain) 30 Days Qty: 30 0RF atorvastatin 40 mg tablet 40 mg PO BEDTIME 30 Days Qty: 30 0RF aspirin 81 mg tablet,delayed release (DR/EC) 81 mg PO QAM 30 Days Qty: 30 0RF insulin glargine [Lantus Solostar U-100 Insulin] 100 unit/mL (3 mL) Insulin Pen 5 unit SUBCUT QPM insulin aspart U-100 [Novolog FlexPen U-100 Insulin] 100 unit/mL (3 mL) insulin pen 5 unit SUBCUT TID Qty: 15 0RF escitalopram oxalate 20 mg Tablet 20 mg PO DAILY fluticasone furoate-vilanterol [Breo Ellipta] 100-25 mcg/dose Blister With Device 1 inh INHALATION DAILY PRN (Reason: Shortness Of Breath) sevelamer carbonate 800 mg Tablet 800 mg PO TID Qty: 90 0RF clonidine HCl 0.1 mg tablet See Rx Instructions .ROUTE .COMPLEX PRN (Reason: Blood Pressure) Rx Instructions: TAKE 1 TABLET IF SYSTOLIC BLOOD PRESSURE IS GREATER THAN 160, REPEAT ONCE IF SYSTOLIC BLOOD PRESSURE IS STILL OVER 160 AFTER 1 HOUR. gabapentin 100 mg Capsule 100 mg PO TID Discontinued carvedilol 3.125 mg Tablet 3.125 mg PO BID 30 Days Qty: 60 0RF nifedipine 30 mg Tablet Extended Release 24hr 60 mg PO DAILY 30 Days Qty: 60 0RF isosorbide mononitrate 60 mg Tablet Extended Release 24 Hr 120 mg PO DAILY 30 Days Qty: 60 0RF ranolazine 500 mg Tablet Extended Release 12 Hr 500 mg PO BID 30 Days Qty: 60 0RF ibuprofen 200 mg tablet 400 mg PO TID lisinopril 40 mg tablet 40 mg PO BEDTIME Discharge Orders: Discharge Order (Routine); Ordered 04/17/24 Ordered By: Shola Carrera Referrals: Elizabeth Dougherty FNP [Primary Care Provider] - 05/01/24 10:40 am Discharge Diet: Cardiac Discharge Activity: Resume usual activity Patient Instructions: Dialysis Nutrition Plan (DC), C. Diff (Clostridioides Difficile) Infection (DC), Hypotension (DC), Altered Mental Status (ED), Hemodialysis (DC), Opioid Safety Activity Restrictions/Additional Instructions: - Please ambulate with care, change position with care, due to increased risk of orthostatic hypotension, and falls, and morbidity or mentality associated -Please use wheeled walker, always have it at bedside -Use compression stockings daily -Use clonidine as needed as above for hypertensive urgency -Please follow-up with your primary care provider as your blood pressure medicat ion will need to be resumed slowly, as her blood pressure increases --I have discharged her on clonidine to be used as needed for hypertensive urgency with parameters -Did discuss with her that if her blood pressures continue to titrate upwards, she can resume Imdur at 60 mg daily Discharge Attestations Time Spent in Discharge Care*: greater than 30 min Status at Discharge: Cognitive status at discharge: cognitively intact , Behavioral status at discharge: cooperative and independent in ADL's , Quality Metrics Clinical Quality Measures [ No reported AMI, CVA or VTE this stay] Coding Level of Care Code 60146 Total time (in minutes) for Discharge: 45 Diagnoses End stage renal disease on dialysis N18.6; Z99.2 Chest pain R07.9 Altered mental status R41.82 Uncontrolled type 1 diabetes mellitus with hyperglycemia E10.65 Glycemic state: with hyperglycemia Fall W19.XXXA Encounter type: initial encounter Blurry vision, right eye H53.8 Orthostatic hypotension I95.1 C. difficile colitis A04.72
[2024-04-17 11:49] LABS: Glucose Point of Care 166 mg/dL (70-110)
--- NOTE | 2024-04-17 13:30 | PC.NURSE ---
Patient refused to take medication because she was puking it all up . Nurse had checked on patient several times throughout morning and early afternoon and patient was resting in bed. The last time nurse went to check on patient her mother was at bedside with discharge paperwork by personal items.
--- NOTE | 2024-04-17 13:32 | PC.NURSE ---
Patient's vancomycin was delivered to bedside and nurse wrote on dishcarge paperwork to please take until completion.
--- NOTE | 2024-04-17 13:39 | P.PN_ITS ---
Subjective 2 Subjective: no new c/o Medications: Reviewed: Yes Vitals/I&O/Wt Last Vital Signs Temp 98.2 F 04/17/24 12:00 Pulse 78 04/17/24 12:00 Resp 21 H 04/17/24 11:22 BP 164/102 04/17/24 12:00 Pulse Ox 92 04/17/24 11:22 O2 Del Method Room Air 04/17/24 04:00 04/16/24 04/17/24 04/17/24 22:59 06:59 14:59 Intake Total 2402 / 2824 1480 / 1480 Output Total 833 / 833 Balance 1568 1480 / 1480 Weight last 48 hrs Weight 54.749 kg Weight 54.6 kg Weight 52.435 kg Physical Exam 2 Narrative: AWAKE , ALERT heent s1s2 RRR per report lUngs clear per report No edema Data 04/17/24 04:50 04/17/24 04:50 A&P Assessment and plan (1) ESRD (end stage renal disease): 38-year-old lady with a past medical history of CAD status post stenting, end- stage renal disease, history of C. difficile, recent history of NSTEMI requiring RCA stenting, type 2 dm admitted for AMS /Hallucinations 1. AMS : resolved 2. ESRD dialysis - HD per TTS schedule 3. Diabetic control per hospitalist. 4. Blood pressure-has orthostatic hypotension , and fluctuating BPS , PRN BP meds 5. Anemia , continue Epogen with hD Patient was seen and examined with the nurse using A/V equipment for telehealth visit. The patient consents to telehealth and dialysis. Plan As above. Attestations 2 Medical Necessity Statement*: per wilson Coding Level of Care Code Acute Code for Chg Fwd Diagnoses ESRD (end stage renal disease) N18.6
== END 2024-04-17 13:25 | disposition home or self-care (01) | DRG 91 ==
LOC: ER 21:26 → CSU 22:33
PROVIDERS: Student in an Organized Health Care Education/Training Program; Admitting Provider Student in an Organized Health Care Education/Training Program; Emergency Provider Emergency Medicine; PCP Nurse Practitioner Family; Visit Provider Family Medicine
DX: G92.8 Other toxic encephalopathy (principal); I21.4 Non-ST elevation (NSTEMI) myocardial infarction; N18.6 End stage renal disease; I12.0 Hypertensive chronic kidney disease with stage 5 chronic kidney disease or end stage renal disease; A04.72 Enterocolitis due to Clostridium difficile, not specified as recurrent; T46.995A Adverse effect of other agents primarily affecting the cardiovascular system, initial encounter; E10.22 Type 1 diabetes mellitus with diabetic chronic kidney disease; E10.40 Type 1 diabetes mellitus with diabetic neuropathy, unspecified; H53.8 Other visual disturbances; I95.1 Orthostatic hypotension; E78.5 Hyperlipidemia, unspecified; F41.9 Anxiety disorder, unspecified; D64.9 Anemia, unspecified; I25.10 Atherosclerotic heart disease of native coronary artery without angina pectoris; Z79.02 Long term (current) use of antithrombotics/antiplatelets; Z79.82 Long term (current) use of aspirin; Z99.2 Dependence on renal dialysis; Z91.81 History of falling; Z95.5 Presence of coronary angioplasty implant and graft; Z86.19 Personal history of other infectious and parasitic diseases; Z89.421 Acquired absence of other right toe(s); Z87.891 Personal history of nicotine dependence
CPT/HCPCS: 0241U; 36415; 36416; 36600; 70450; 70553; 71045; 73521; 73523; 73560; 80048; 80051; 80053; 80306; 80307; 81001; 82330; 82805; 82962; 83605; 84100; 84443; 84484; 85025; 86140; 87324; 87493; 90935; 93005; 96372; 96376; 97110; 97161; 97165; 99285; J1644; J1815; J2060; J2405; J7030; J7040; P9047; Q3014

== ENCOUNTER → 2024-04-20 16:00 | Outpatient (BNVA) | payer MEDICARE, MEDICAID, SELFPAY | PROVIDERS: PCP Nurse Practitioner Family; Visit Provider Podiatrist Foot & Ankle Surgery | DX: E10.42 Type 1 diabetes mellitus with diabetic polyneuropathy (principal); M21.379 Foot drop, unspecified foot; B35.1 Tinea unguium | CPT/HCPCS: 99203 ==

== ENCOUNTER 2024-04-28 15:33 | Emergency (ER) | payer MEDICARE, MEDICAID, SELFPAY ==
--- NOTE | 2024-04-28 15:34 | XR_ITS ---
WS: [id number] XR chest 1V portable [id number] REASON FOR EXAM: cp FINDINGS: Chest is stable compared to 04/12/2024. Right IJ dialysis catheter in proper position with the tip in the distal SVC. The heart is at the upper limits of normal in size. Coronary artery stents overlying the left heart. No acute pulmonary parenchymal or pleural abnormality. Bony thorax intact without significant abnorma lity. XR/XR chest 1V portable [id number] IMPRESSION: Stable chest without acute abnormality.
--- NOTE | 2024-04-28 15:35 | ECG_ITS ---
[facility] [employer] Test Date: 2024-04-28 Pat Name: Donita Aguilar Department: Room: Gender: Female [employer] Administrator: : [id number] Requested By: Ronny Ayala Order Number: [id number] Faviola MD: Gilberto Eugene M.D. Measurements Intervals Shafter Rate: 72 P: 34 TN: 173 QRS: -9 QRSD: 104 T: -12 QT: 420 QTc: 461 Interpretive Statements SINUS RHYTHM ST DEVIATION AND MODERATE T-WAVE ABNORMALITY, CONSIDER LATERAL ISCHEMIA [-0.1+ mV T-WAVE IN I/aVL/V5/V6] ST DEVIATION AND MODERATE T-WAVE ABNORMALITY, CONSIDER INFERIOR ISCHEMIA [-0.1+ mV T-WAVE IN II/aVF] Compared to ECG 04/13/2024 17:22:38 First degree AV block no longer present Intraventricular conduction delay no longer present T-wave abnormality still present Possible ischemia still present Electronically Signed On 04-30-2024 21:34:37 AERIAL GUNNER by Gilberto Eugene M.D. [email or web address]
--- NOTE | 2024-04-28 15:37 | W.ED.CHESTPA ---
HPI - Chest Pain General: Chief Complaint: Chest Pain Stated Complaint: CP Time Seen by Provider: 04/28/24 15:34 Source: patient and EMS Mode of arrival: EMS Limitations: no limitations History of Present Illness: 38-year-old female who is very well-known to the ER she has multiple medical issues including type I diabetic end-stage renal disease on dialysis she is a dialysis today states has been usp through her dialysis started having chest pain states that sharp pain in the center of her chest she denies any fever denies any cough or shortness of breath denies any worse improving factors. Associated symptoms: Deny abdominal pain, dyspnea, fever(s), nausea or vomiting Related Data Home Medications Medication Instructions Recorded Confirmed clonidine HCl 0.1 mg tablet See Rx Instructions .Route 11/27/23 04/28/24 .COMPLEX PRN Blood Pressure gabapentin 100 mg capsule 100 mg PO TID 12/27/23 04/28/24 insulin glargine 100 unit/mL (3 5 unit SUBCUT QPM 04/06/24 04/28/24 mL) subcutaneous pen (Lantus Solostar U-100 Insulin) escitalopram oxalate 20 mg tablet 20 mg PO DAILY 04/13/24 04/28/24 clopidogrel 75 mg tablet 75 mg PO DAILY 04/28/24 04/28/24 Previous Rx's Medication Instructions Recorded blood-glucose meter,continuous #1 ea 06/12/22 (Dexcom G6 Legislative Director) blood-glucose sensor (Dexcom G6 #3 ea 06/12/22 Sensor device) blood-glucose transmitter (Dexcom #1 ea 06/12/22 G6 Transmitter device) sevelamer carbonate 800 mg tablet 800 mg PO TID #90 tabs 09/16/23 aspirin 81 mg tablet,delayed 81 mg PO QAM 30 days #30 tabs 03/28/24 release atorvastatin 40 mg tablet 40 mg PO BEDTIME 30 days #30 tabs 03/28/24 insulin aspart U-100 100 unit/mL 5 unit (0.05 mL) SUBCUT TID #15 mL 04/11/24 (3 mL) subcutaneous pen (Novolog FlexPen U-100 Insulin aspart) AFO brace #1 ea 04/20/24 diabetic shoes with 3 inserts #1 ea 04/20/24 Allergies Allergy/AdvReac Type Severity Reaction Status Date / Time acetaminophen AdvReac Mild ADR-Gastrointestinal Verified 04/20/24 16:15 Upset Review of Systems Const: Denies: fever(s), chills, body aches or change in appetite ENMT: Denies: throat pain or dental pain Card: Reports: chest pain Resp: Denies: dyspnea GI: Denies: abdominal pain, nausea, vomiting or diarrhea Musc: Denies: neck pain or back pain Skin/Breast: Denies: rash Neuro: Denies: headache(s) PFSH ED PFSH: Medical History Headache Accelerated hypertension Uncontrolled type 1 diabetes mellitus ESRD (end stage renal disease) Dialysis complication Hypoglycemia Hemodialysis catheter dysfunction Hyperkalemia Colitis End stage renal disease on dialysis COPD (chronic obstructive pulmonary disease) Diabetes mellitus Transaminitis Intractable nausea and vomiting Hyperlipidemia HTN (hypertension) CHF (congestive heart failure), NYHA class III Pulmonary hypertension CAD (coronary artery disease) Neurogenic bladder COVID-19 Tobacco dependence Drug abuse Anemia Community acquired pneumonia Esophagitis Long-term insulin use History of pancreatitis Celiac disease Recurrent UTI Non-alcoholic fatty liver disease Arnold-Chiari malformation Diabetic gastroparesis -continue Reglan Diabetic neuropathy associated with type 1 diabetes mellitus Headache, common migraine, intractable, with status migrainosus Pleural effusion 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 History of lung surgery -s/p LLL lobectomy secondary to cavitary pneumonia (2017) History of endoscopy History of cholecystectomy Family History Grandfather Diabetes Mother CAD (coronary artery disease) Diabetes Brother Acute lymphoblastic leukemia (ALL) in child Other Heart disease Hypertension Social History Smoking and tobacco/nicotine status: former use of tobacco/nicotine Quit status (tobacco/nicotine): has quit using Former quit date comment: She previously smoked <1/2 PPD, quit July 2023. Second hand smoke exposure: Yes Alcohol intake: never Substance/Drug Use: current Household members: children Housing: House Marital status: Single Current occupational status: unemployed Physical Exam Const: COMMON NORMALS: patient oriented x3 HENMT: COMMON NORMALS: normocephalic and atraumatic HEAD & SCALP: normocephalic and atraumatic Eye: COMMON NORMALS: conjunctivae normal CONJUNCTIVA: Yes conjunctivae normal Neck/C-Spine: COMMON NORMALS: full ROM and supple Chest: COMMONS NORMALS: normal inspection of the chest and normal palpation of entire chest wall Resp: COMMON NORMALS: normal respiratory effort, No retractions, No use of accessory muscles and clear to auscultation bilaterally AUSCULTATION: clear to auscultation bilaterally Cardio: COMMON NORMALS: regular rate, regular rhythm and No murmurs present (Cardio) RATE: regular rate RHYTHM: regular rhythm Extremity: COMMON NORMALS: normal to inspection and full ROM Neuro: COMMON NORMALS: patient oriented x3, moves all extremities and no focal motor deficits Psych: COMMON NORMALS: mental status grossly normal, Normal thought process present and cooperative THOUGHT PROCESS: Normal thought process present Skin: COMMON NORMALS: no rashes or lesions noted and no wounds GENERAL SKIN EXAM: no rashes or lesions noted Course Vital Signs: Vital signs: Vital Signs Temperature 98.1 F 04/28/24 15:38 Pulse Rate 70 04/28/24 17:44 Respiratory Rate 12 04/28/24 17:44 Blood Pressure 206/117 04/28/24 16:35 Pulse Oximetry 98 04/28/24 17:44 Oxygen Delivery Me thod Room Air 04/28/24 17:44 MDM - Chest Pain Medical Decision Making Patient presents here with chest pain she has been pain-free here her 2-hour troponin went down no signs of ACS she had a recent cath as well she stable for discharge follow-up with PCP return if worsening. Medical Records I reviewed the patient's medical records. Lab Data I reviewed the patient's lab results. 04/28/24 16:02 04/28/24 16:02 Radiology Impressions Chest X-Ray 04/28/24 15:34 IMPRESSION: Stable chest without acute abnormality. Laboratory Results WBC 6.75 10^3/uL (3.29-11.43) 04/28/24 16:02 RBC 3.47 10^6/uL (3.85-5.65) L 04/28/24 16:02 Hgb 10.30 g/dL (11.27-16.99) L 04/28/24 16:02 Hct 32.1 % (36-47) L 04/28/24 16:02 MCV 92.5 fl (85-98) 04/28/24 16:02 MCH 29.7 pg (27-33) 04/28/24 16:02 MCHC 32.1 g/dL (30-55) 04/28/24 16:02 RDW 14.6 % (12.1-15.1) 04/28/24 16:02 Plt Count 156 10^3/cmm (157-399) L 04/28/24 16:02 MPV 10.1 fL (7.4-10.4) 04/28/24 16:02 Neut % (Auto) 59.4 % 04/28/24 16:02 Lymph % (Auto) 26.2 % 04/28/24 16:02 [place]ites[place] % (Auto) 6.7 % 04/28/24 16:02 Eos % (Auto) 6.7 % 04/28/24 16:02 Baso % (Auto) 0.9 % 04/28/24 16:02 Neut # (Auto) 4.01 10^3/uL (1.8-7.7) 04/28/24 16:02 Lymph # (Auto) 1.8 10^3/uL (0.8-4.8) 04/28/24 16:02 [place] # (Auto) 0.5 10^3/uL (0.2-0.9) 04/28/24 16:02 Eos # (Auto) 0.5 10^3/uL (0.0-0.8) 04/28/24 16:02 Baso # (Auto) 0.1 10^3/uL (0.0-0.1) 04/28/24 16:02 Nucleated RBC % (auto) 0 % 04/28/24 16: Nucleated RBCs # 0.0 /100WBC 04/28/24 16:02 Sodium 136 mmol/L (136-145) 04/28/24 16:02 Potassium 3.7 mmol/L (3.5-5.1) 04/28/24 16:02 Chloride 98 mmol/L (98-107) 04/28/24 16:02 Carbon Dioxide 25 mmol/L (22-29) 04/28/24 16:02 Anion Gap 16.7 (5-19) 04/28/24 16:02 BUN 15 mg/dL (6-20) 04/28/24 16:02 Creatinine 2.8 mg/dL (0.5-0.9) H 04/28/24 16:02 GFR Calculation 19.0 mL/min (90-130) L 04/28/24 16:02 Glucose 181 mg/dL (65-115) H 04/28/24 16:02 Calculated Osmolality 287 mOsm/kg (285-295) 04/28/24 16:02 Calcium 8.3 mg/dL (8.5-10.5) L 04/28/24 16:02 Total Bilirubin 0.3 mg/dL (0.15-1.2) 04/28/24 16:02 AST 36 U/L (0-32) H 04/28/24 16:02 ALT 52 U/L (0-33) H 04/28/24 16:02 Alkaline Phosphatase 116 U/L (35-105) H 04/28/24 16:02 Troponin T Baseline 258 ng/L (0-10) H* 04/28/24 16:02 Troponin T 120 Minute 256.9 ng/L (0-10) H 04/28/24 18:22 Delta Troponin T -1.1 ABS# (0-10) L 04/28/24 18:22 Total Protein 6.3 g/dL (6.6-8.7) L 04/28/24 16:02 Albumin 3.7 g/dL (3.5-5.2) 04/28/24 16:02 Globulin 2.6 g/dL (1.3-4.6) 04/28/24 16:02 All radiology interpretation(s) finalized by discharge Discharge Plan Discharge Patient Disposition: Home Clinical Impression: Atypical chest pain Prescriptions: No Action (DME) AFO brace See Rx Instructions .Route .MEDSUPPLY Qty: 1 0RF Rx Instructions: As directed to the shoe guys (DME) diabetic shoes with 3 inserts See Rx Instructions .Route .MEDSUPPLY Qty: 1 0RF Rx Instructions: As directed to the shoe guys (DME) Dexcom G6 Legislative Director Misc See Rx Instructions .Route Qty: 1 0RF Rx Instructions: As directed (DME) Dexcom G6 Sensor Device See Rx Instructions .Route Qty: 3 0RF Rx Instructions: As directed (DME) Dexcom G6 Transmitter Device See Rx Instructions .Route Qty: 1 0RF Rx Instructions: As directed atorvastatin 40 mg tablet 40 mg PO BEDTIME 30 Days Qty: 30 0RF aspirin 81 mg tablet,delayed release (DR/EC) 81 mg PO QAM 30 Days Qty: 30 0RF insulin glargine [Lantus Solostar U-100 Insulin] 100 unit/mL (3 mL) Insulin Pen 5 unit SUBCUT QPM insulin aspart U-100 [Novolog FlexPen U-100 Insulin] 100 unit/mL (3 mL) insulin pen 5 unit SUBCUT TID Qty: 15 0RF Rx Instructions: sliding scale escitalopram oxalate 20 mg Tablet 20 mg PO DAILY sevelamer carbonate 800 mg Tablet 800 mg PO TID Qty: 90 0RF clonidine HCl 0.1 mg tablet See Rx Instructions .ROUTE .COMPLEX PRN (Reason: Blood Pressure) Rx Instructions: TAKE 1 TABLET IF SYSTOLIC BLOOD PRESSURE IS GREATER THAN 160, REPEAT ONCE IF SYSTOLIC BLOOD PRESSURE IS STILL OVER 160 AFTER 1 HOUR. gabapentin 100 mg Capsule 100 mg PO TID clopidogrel 75 mg tablet 75 mg PO DAILY Discharge Orders: Discharge ED (Routine); Ordered 04/28/24 Ordered By: Ronny Ayala Referrals: Elizabeth Dougherty FNP [Primary Care Provider] - Discharge Diet: Advance as tolerated Discharge Activity: Resume usual activity Patient Instructions: Chest Pain (ED) Coding Level of Care Code ED Hydraulic Modeling Engineer for Reji Chandler
[2024-04-28 15:38] VITALS: BP 177/99; PULSE 72; RESP 18; TEMP 36.7; O2SAT 98; BMI 24.0
[2024-04-28 16:08] LABS: Basophils # 0.1 10^3/uL (0.0-0.1); Basophils % 0.9 %; Eosinophils # 0.5 10^3/uL (0.0-0.8); Eosinophils % 6.7 %; Hematocrit 32.1 % (36-47); Lymphocytes # 1.8 10^3/uL (0.8-4.8); Lymphocytes % 26.2 %; Mean Corpuscular HGB Conc 32.1 g/dL (30-55); Mean Corpuscular Hemoglobin 29.7 pg (27-33); Mean Corpuscular Volume 92.5 fl (85-98); Mean Platelet Volume 10.1 fL (7.4-10.4); Monocytes # 0.5 10^3/uL (0.2-0.9); Monocytes % 6.7 %; Neutrophils # 4.01 10^3/uL (1.8-7.7); Neutrophils % 59.4 %; Nucleated Red Blood Cells % 0 %; Platelet Count 156 10^3/cmm (157-399); Red Blood Count 3.47 10^6/uL (3.85-5.65); Red Cell Distribution Width 14.6 % (12.1-15.1); White Blood Count 6.75 10^3/uL (3.29-11.43)
[2024-04-28 16:35] VITALS: BP 206/117; PULSE 72; RESP 10; O2SAT 99
[2024-04-28 16:37] LABS: Troponin(5th) Baseline 258 ng/L (0-10)
[2024-04-28 17:00] LABS: Alanine Aminotransferase 52 U/L (0-33); Albumin Level 3.7 g/dL (3.5-5.2); Alkaline Phosphatase 116 U/L (35-105); Blood Urea Nitrogen 15 mg/dL (6-20); Calcium 8.3 mg/dL (8.5-10.5); Carbon Dioxide 25 mmol/L (22-29); Chloride 98 mmol/L (98-107); Creatinine Clr Calc Pharmacy 21.5474; Globulin 2.6 g/dL (1.3-4.6); Glucose 181 mg/dL (65-115); Osmolality Calculated 287 mOsm/kg (285-295); Sodium 136 mmol/L (136-145); Total Bilirubin 0.3 mg/dL (0.15-1.2); Total Protein 6.3 g/dL (6.6-8.7)
[2024-04-28 17:04] LABS: Anion Gap 16.7 (5-19); Aspartate Amino Transferase 36 U/L (0-32); Potassium 3.7 mmol/L (3.5-5.1)
[2024-04-28] MEDS: morphine 4 mg/mL SDV 1 mL IVP (17:07)
[2024-04-28] MEDS: ondansetron 2 mg/ML SDV 2 mL 4 MG IVP (17:08)
[2024-04-28] MEDS: hyDRALAzine 20 mg/mL INJ 1 mL IVP (17:08)
--- NOTE | 2024-04-28 17:26 | ECG_ITS ---
[employer] Test Date: 2024-04-28 Pat Name: Donita Aguilar Department: Room: Gender: Female Range Master: : 1985 Requested By: Ronny Ayala Order Number: [id number] Reading MD: JOSEFA TALLEY Measurements Intervals Chavies Rate: 69 P: 44 TX: 177 QRS: 24 QRSD: 101 T: 110 QT: 439 QTc: 470 Interpretive Statements SINUS RHYTHM ST DEVIATION AND MODERATE T-WAVE ABNORMALITY, CONSIDER LATERAL ISCHEMIA [-0.1+ mV T-WAVE IN I/aVL/V5/V6] ST DEVIATION AND MODERATE T-WAVE ABNORMALITY, CONSIDER INFERIOR ISCHEMIA [-0.1+ mV T-WAVE IN II/aVF] Compared to ECG 04/28/2024 15:35:58 No significant changes Electronically Signed On 05-01-2024 00:36:43 RETAIL ANALYST by JOSEFA TALLEY [email or web address]
[2024-04-28 17:44] VITALS: PULSE 70; RESP 12; O2SAT 98
[2024-04-28 18:54] LABS: Troponin 5 2HR 256.9 ng/L (0-10); Troponin 5 2HR Delta -1.1 ABS# (0-10)
[2024-04-28 19:08] VITALS: BP 136/81; PULSE 69; RESP 10; O2SAT 99
== END 2024-04-28 19:17 | disposition home or self-care (01) ==
PROVIDERS: Emergency Provider Emergency Medicine; PCP Nurse Practitioner Family
DX: R07.89 Other chest pain (principal); Z79.82 Long term (current) use of aspirin; Z79.4 Long term (current) use of insulin; Z79.02 Long term (current) use of antithrombotics/antiplatelets; Z87.891 Personal history of nicotine dependence; E10.649 Type 1 diabetes mellitus with hypoglycemia without coma; E10.22 Type 1 diabetes mellitus with diabetic chronic kidney disease; I13.2 Hypertensive heart and chronic kidney disease with heart failure and with stage 5 chronic kidney disease, or end stage renal disease; I50.9 Heart failure, unspecified; N18.6 End stage renal disease; Z99.2 Dependence on renal dialysis; I25.10 Atherosclerotic heart disease of native coronary artery without angina pectoris
CPT/HCPCS: 71045; 80053; 84484; 85025; 93005; 96374; 96375; 99285; J0360; J2270; J2405

== ENCOUNTER 2024-05-04 20:16 | Emergency (ER) | payer MEDICARE, MEDICAID, SELFPAY ==
[2024-05-04] VITALS (7 sets, daily range): BP systolic 170–207; BP diastolic 91–120; PULSE 77–81; RESP 16–20; TEMP 37.2; O2SAT 94–99; BMI 24.0
--- NOTE | 2024-05-04 20:55 | ED_ITS ---
HPI - Female Genitourinary 2 General: Chief complaint: Urogenital-Female Stated complaint: back pain side. pain urinate Time Seen by Provider: 05/04/24 20:37 History of Present Illness: 38-year-old female with a history of cor onary artery disease on Plavix, hypertension, CHF, hyperlipidemia, diabetes and end-stage renal disease on dialysis who presents the emergency room with low back pain, pelvic pain and dysuria. She has had some chills. Some nausea. No vomiting. No chest pain. No shortness of breath. No altered mental status. Related Data Home Medications Medication Instructions Recorded Confirmed clonidine HCl 0.1 mg tablet See Rx Instructions .Route 11/27/23 04/28/24 .COMPLEX PRN Blood Pressure gabapentin 100 mg capsule 100 mg PO TID 12/27/23 04/28/24 insulin glargine 100 unit/mL (3 5 unit SUBCUT QPM 04/06/24 04/28/24 mL) subcutaneous pen (Lantus Solostar U-100 Insulin) escitalopram oxalate 20 mg tablet 20 mg PO DAILY 04/13/24 04/28/24 clopidogrel 75 mg tablet 75 mg PO DAILY 04/28/24 04/28/24 Previous Rx's Medication Instructions Recorded blood-glucose meter,continuous #1 ea 06/12/22 (Dexcom G6 Grocery Deliverer) blood-glucose sensor (Dexcom G6 #3 ea 06/12/22 Sensor device) blood-glucose transmitter (Dexcom #1 ea 06/12/22 G6 Transmitter device) sevelamer carbonate 800 mg tablet 800 mg PO TID #90 tabs 09/16/23 aspirin 81 mg tablet,delayed 81 mg PO QAM 30 days #30 tabs 03/28/24 release atorvastatin 40 mg tablet 40 mg PO BEDTIME 30 days #30 tabs 03/28/24 insulin aspart U-100 100 unit/mL 5 unit (0.05 mL) SUBCUT TID #15 mL 04/11/24 (3 mL) subcutaneous pen (Novolog FlexPen U-100 Insulin aspart) AFO brace #1 ea 04/20/24 diabetic shoes with 3 inserts #1 ea 04/20/24 cefdinir 300 mg capsule 300 mg PO BID 5 days #10 caps 05/04/24 Allergies Allergy/AdvReac Type Severity Reaction Status Date / Time acetaminophen AdvReac Mild ADR-Gastrointestinal Verified 04/20/24 16:15 Upset Review of Systems 2 Narrative: Constitutional symptoms: Negative except as documented in HPI. Skin symptoms: Negative except as documented in HPI. Eye symptoms: Negative except as documented in HPI. ENMT symptoms: Negative except as documented in HPI. Respiratory symptoms: Negative except as documented in HPI. Cardiovascular symptoms: Negative except as documented in HPI. Gastrointestinal symptoms: Negative except as documented in HPI. Genitourinary symptoms: Negative except as documented in HPI. Musculoskeletal symptoms: Negative except as documented in HPI. Neurologic symptoms: Negative except as documented in HPI. Psychiatric symptoms: Negative except as documented in HPI. Endocrine symptoms: Negative except as documented in HPI. PFSH ED 2 PFSH: Medical History Headache Accelerated hypertension Uncontrolled type 1 diabetes mellitus ESRD (end stage renal disease) Dialysis complication Hypoglycemia Hemodialysis catheter dysfunction Hyperkalemia Colitis End stage renal disease on dialysis COPD (chronic obstructive pulmonary disease) Diabetes mellitus Transaminitis Intractable nausea and vomiting Hyperlipidemia HTN (hypertension) CHF (congestive heart failure), NYHA class III Pulmonary hypertension CAD (coronary artery disease) Neurogenic bladder COVID-19 Tobacco dependence Drug abuse Anemia Community acquired pneumonia Esophagitis Long-term insulin use History of pancreatitis Celiac disease Recurrent UTI Non-alcoholic fatty liver disease Arnold-Chiari malformation Diabetic gastroparesis -continue Reglan Diabetic neuropathy associated with type 1 diabetes mellitus Headache, common migraine, intractable, with status migrainosus Pleural effusion 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 History of lung surgery -s/p LLL lobectomy secondary to cavitary pneumonia (2017) History of endoscopy History of cholecystectomy Family History Grandfather Diabetes Mother CAD (coronary artery disease) Diabetes Brother Acute lymphoblastic leukemia (ALL) in child Other Heart disease Hypertension Social History Smoking and tobacco/nicotine status: former use of tobacco/nicotine Quit status (tobacco/nicotine): has quit using Former quit date comment: She previously smoked <1/2 PPD, quit July 2023. Second hand smoke exposure: Yes Alcohol intake: never Substance/Drug Use: current Household members: children Housing: House Marital status: Single Current occupational status: unemployed Physical Exam 2 Narrative: EXAM NARRATIVE: General: Alert, no acute distress. Skin: Warm, dry. Head: Normocephalic, atraumatic. Neck: Supple, trachea midline. Eye: Extraocular movements are intact. Ears, nose, mouth and throat: mucosa moist. Cardiovascular: Regular, Normal peripheral perfusion. Respiratory: Lungs are clear to auscultation, respirations are non-labored, breath sounds are equal, Symmetrical chest wall expansion. Gastrointestinal: Soft, Nontender, Non distended Musculoskeletal: Normal ROM, no deformity. Neurological: Alert and oriented, No focal neurological deficit observed. Psychiatric: Cooperative, appropriate mood & affect. Course 2 Vital Signs: Vital signs: Vital Signs Temperature 98.9 F 05/04/24 20:25 Pulse Rate 80 05/04/24 22:24 Respiratory Rate 16 05/04/24 22:24 Blood Pressure 207/120 05/04/24 22:24 Pulse Oximetry 94 05/04/24 22:24 Oxygen Delivery Me thod Room Air 05/04/24 22:24 MDM - Female Medical Decision Making Medical decision making: Differential diagnosis including but not limited to and based on the above HPI, review of systems and physical exam: Urinary tract infection, musculoskeletal pain, colitis etc. Orders placed to evaluate differential diagnosis based on the above differential, HPI and physical exam Lab Review: Laboratory results were reviewed and interpreted by myself the emergency room physician. No leukocytosis. Hemoglobin stable at 9.8. BUN and creatinine are as would be expected at 18 and 4.8 with a potassium of 5.4 today. She is due dialysis. Urine shows a few red cells but no obvious signs of infection. CT of the abdomen pelvis without contrast: No acute findings. Chronic findings as listed below. This was reviewed and interpreted by myself the emergency room physician. I also reviewed the radiology report. I reviewed the patient's medical record. Reexamination: Patient remained stable. No increased work of breathing. No altered mental status. No focal motor deficits. Assessment and plan: Dysuria Low back pain ?Given that this patient is a dialysis patient and she is having urinary symptoms am going to go ahead and treat her for possible urinary tract infection with Rocephin here in the emergency room and Omnicef at home. She also received some low-dose morphine here in the emergency room. - Discharged home - Discussed findings and plan with patient. Answered any questions. - All laboratory values were reviewed and interpreted personally by myself, the ER physician - All imaging was reviewed and interpreted personally by myself, the ER physician. - Evaluation and treatment of this problem were appropriate in the emergency setting Lab Data 05/04/24 21:30 05/04/24 21:30 Radiology Impressions Abdomen/Pelvis CT 05/04/24 21:45 IMPRESSION: 1. Mildly prominent fluid in the stomach and small bowel, please correlate for a gastroenteritis. 2. 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 3. Coronary artery atherosclerotic calcification. 4. Emphysematous changes. 5. Small left pleural effusion. 6. Anasarca. 7. Left lower lobe atelectasis versus minimal infiltrate. 8. Cholecystectomy. 9. Aortic atherosclerotic calcifications. 10. Small amount of nonspecific fluid in the pelvis. Laboratory Results WBC 9.96 10^3/uL (3.29-11.43) 05/04/24 21:30 RBC 3.34 10^6/uL (3.85-5.65) L 05/04/24 21:30 Hgb 9.80 g/dL (11.27-16.99) L 05/04/24 21:30 Hct 30.6 % (36-47) L 05/04/24 21: MCV 91.6 fl (85-98) 05/04/24 21: MCH 29.3 pg (27-33) 05/04/24 21: MCHC 32.0 g/dL (30-55) 05/04/24 21: RDW 14.0 % (12.1-15.1) 05/04/24 21: Plt Count 137 10^3/cmm (157-399) L 05/04/24 21: MPV 10.3 fL (7.4-10.4) 05/04/24 21:30 Neut % (Auto) 80.5 % 05/04/24 21: Lymph % (Auto) 8.9 % 05/04/24 21: [place] % (Auto) 6.9 % 05/04/24 21:30 Eos % (Auto) 2.9 % 05/04/24 21:30 Baso % (Auto) 0.4 % 05/04/24 21:30 Neut # (Auto) 8.01 10^3/uL (1.8-7.7) H 05/04/24 21:30 Lymph # (Auto) 0.9 10^3/uL (0.8-4.8) 05/04/24 21: [place] # (Auto) 0.7 10^3/uL (0.2-0.9) 05/04/24 21:30 Eos # (Auto) 0.3 10^3/uL (0.0-0.8) 05/04/24 21: Baso # (Auto) 0.0 10^3/uL (0.0-0.1) 05/04/24 21: Nucleated RBC % (auto) 0 % 05/04/24 21: Nucleated RBCs # 0.0 /100WBC 05/04/24 21:30 Sodium 138 mmol/L (136-145) 05/04/24 21:30 Potassium 5.4 mmol/L (3.5-5.1) H 05/04/24 21:30 Chloride 102 mmol/L (98-107) 05/04/24 21: Carbon Dioxide 24 mmol/L (22-29) 05/04/24 21:30 Anion Gap 17.4 (5-19) 05/04/24 21:30 BUN 18 mg/dL (6-20) 05/04/24 21:30 Creatinine 4.8 mg/dL (0.5-0.9) H 05/04/24 21:30 GFR Calculation 10.2 mL/min (90-130) L 05/04/24 21:30 Glucose 92 mg/dL (65-115) 05/04/24 21: Calculated Osmolality 288 mOsm/kg (285-295) 05/04/24: Calcium 8.4 mg/dL (8.5-10.5) L 05/04/24 21:30 Total Bilirubin 0.3 mg/dL (0.15-1.2) 05/04/24: AST 24 U/L (0-32) 05/04/24 21:30 ALT 40 U/L (0-33) H 05/04/24 21:30 Alkaline Phosphatase 154 U/L (35-105) H 05/04/24 21:30 Total Protein 6.8 g/dL (6.6-8.7) 05/04/24 21:30 Albumin 3.6 g/dL (3.5-5.2) 05/04/24 21:30 Globulin 3.2 g/dL (1.3-4.6) 05/04/24 21:30 Lipase 9 U/L (13-60) L 05/04/24 21:30 Urine Color Yellow (Yellow) 05/04/24 21:14 Urine Appearance Clear (CLEAR) 05/04/24 21:14 Urine pH 8.0 (5-7) A 05/04/24 21:14 Ur Specific [place] 1.009 (1.005-1.030) 05/04/24 21:14 Urine Protein 3+ (Negative) A 05/04/24 21:14 Urine Glucose (UA) 1+ (Normal) H 05/04/24 21:14 Urine Ketones Negative (Negative) 05/04/24 21:14 Urine Blood 2+ (Negative) A 05/04/24 21:14 Urine Nitrate Negative (Negative) 05/04/24 21:14 Urine Bilirubin Negative (Negative) 05/04/24 21:14 Urine Urobilinogen 0.2 mg/dL (Negative) 05/04/24 21:14 Ur Leukocyte Esterase Negative (Negative) 05/04/24 21:14 Urine RBC 21-50 /hpf (0-2) H 05/04/24 21:14 Urine WBC 0-5 /hpf (0-5) 05/04/24 21:14 Ur Squamous Epith Cells 0-5 /hpf (0-5) 05/04/24 21:14 Amorphous Sediment Not Reportable 05/04/24 21:14 Urine Bacteria None seen /hpf (NONE) 05/04/24 21:14 Hyaline Casts 2.87 /lpf 05/04/24 21:14 All radiology interpretation(s) finalized by discharge Discharge Plan Discharge Patient Disposition: Home Clinical Impression: Low back pain Condition: Stable Prescriptions: New cefdinir 300 mg capsule 300 mg PO BID 5 Days Qty: 10 0RF No Action (DME) AFO brace See Rx Instructions .Route .MEDSUPPLY Qty: 1 0RF Rx Instructions: As directed to the shoe guys (DME) diabetic shoes with 3 inserts See Rx Instructions .Route .MEDSUPPLY Qty: 1 0RF Rx Instructions: As directed to the shoe guys (DME) Dexcom G6 Grocery Deliverer Misc See Rx Instructions .Route Qty: 1 0RF Rx Instructions: As directed (DME) Dexcom G6 Sensor Device See Rx Instructions .Route Qty: 3 0RF Rx Instructions: As directed (DME) Dexcom G6 Transmitter Device See Rx Instructions .Route Qty: 1 0RF Rx Instructions: As directed atorvastatin 40 mg tablet 40 mg PO BEDTIME 30 Days Qty: 30 0RF aspirin 81 mg tablet,delayed release (DR/EC) 81 mg PO QAM 30 Days Qty: 30 0RF insulin glargine [Lantus Solostar U-100 Insulin] 100 unit/mL (3 mL) Insulin Pen 5 unit SUBCUT QPM insulin aspart U-100 [Novolog FlexPen U-100 Insulin] 100 unit/mL (3 mL) insulin pen 5 unit SUBCUT TID Qty: 15 0RF Rx Instructions: sliding scale escitalopram oxalate 20 mg Tablet 20 mg PO DAILY sevelamer carbonate 800 mg Tablet 800 mg PO TID Qty: 90 0RF clonidine HCl 0.1 mg tablet See Rx Instructions .ROUTE .COMPLEX PRN (Reason: Blood Pressure) Rx Instructions: TAKE 1 TABLET IF SYSTOLIC BLOOD PRESSURE IS GREATER THAN 160, REPEAT ONCE IF SYSTOLIC BLOOD PRESSURE IS STILL OVER 160 AFTER 1 HOUR. gabapentin 100 mg Capsule 100 mg PO TID clopidogrel 75 mg tablet 75 mg PO DAILY Discharge Orders: Discharge ED (Routine); Ordered 05/04/24 Ordered By: Dawna Briceno Referrals: Elizabeth Dougherty FNP [Primary Care Provider] - Discharge Diet: Usual diet Discharge Activity: Increase activity as tolerated Patient Instructions: Dysuria (ED), Back Pain (ED), Opioid Safety, Pain Management Activity Restrictions/Additional Instructions: Thank you for choosing [facility] for your healthcare needs today. Please realize this is an emergency room and that we are providing you with a medical screening exam and this may not be complete and all inclusive of all the testing and or work up that you may need to determine your ailment or severity of your illness. You have been screened and evaluated and felt safe for discharge. Health conditions do change or evolve sometimes and as such it is important that you follow up with your Primary Doctor to be re checked, 3-5 days is a general good time frame for follow up. You are always welcome to return to the ED for re assessment if your symptoms are worsening or you have new concerns Coding Level of Care Code ED Data Analyst Report Writer for Reji Chandler
[2024-05-04 21:35] LABS: Bilirubin Urine Negative (Negative); Blood Urine 2+ (Negative); Glucose Urine UA 1+ (Normal); Ketones Urine Negative (Negative); Leukocyte Esterase Urine Negative (Negative); Nitrate Urine Negative (Negative); Protein Urine 3+ (Negative); Specific Gravity, Urine 1.009 (1.005-1.030); Urine Appearance Clear (CLEAR); Urine Color Yellow (Yellow); Urobilinogen Urine 0.2 mg/dL (Negative)
[2024-05-04 21:39] LABS: Add Urine Microscopic? YES; Bacteria Urine None Seen /hpf; Hyaline Casts Urine 2.87 /lpf; RBC Urine 21-50 /hpf (0-2); Squamous Epithelial Cell Urine 0-5 /hpf (0-5); WBC Urine 0-5 /hpf (0-5)
[2024-05-04 21:40] LABS: Basophils % 0.4 %; Eosinophils # 0.3 10^3/uL (0.0-0.8); Eosinophils % 2.9 %; Hematocrit 30.6 % (36-47); Lymphocytes # 0.9 10^3/uL (0.8-4.8); Lymphocytes % 8.9 %; Mean Corpuscular Hemoglobin 29.3 pg (27-33); Mean Corpuscular Volume 91.6 fl (85-98); Mean Platelet Volume 10.3 fL (7.4-10.4); Monocytes # 0.7 10^3/uL (0.2-0.9); Monocytes % 6.9 %; Neutrophils # 8.01 10^3/uL (1.8-7.7); Neutrophils % 80.5 %; Nucleated Red Blood Cells % 0 %; Platelet Count 137 10^3/cmm (157-399); Red Blood Count 3.34 10^6/uL (3.85-5.65); White Blood Count 9.96 10^3/uL (3.29-11.43)
--- NOTE | 2024-05-04 21:45 | CTR_ITS ---
PROCEDURE INFORMATION: Exam: CT Abdomen And Pelvis Without Contrast Exam date and time: 05/04/2024 10:14 PM Age: 38 years old Clinical indication: Abdominal pain; Generalized; Prior surgery; Surgery date: 6+ months; Surgery type: Choley, stent, lll lobectomy; Additional info: Flank pain TECHNIQUE: Imaging protocol: Computed tomography of the abdomen and pelvis without contrast. Radiation optimization: All CT scans at this facility use at least one of these dose optimization techniques: automated exposure control; mA and/or kV adjustment per patient size (includes targeted exams where dose is matched to clinical indication); or iterative reconstruction. COMPARISON: CT abdomen pelvis con [id number] 03/05/2024 2:20 PM RADIATION DOSE METRICS: Total DLP (mGy-cm): 404.53 FINDINGS: Lungs: Emphysematous changes. Left lower lobe atelectasis versus minimal infiltrate. Pleural spaces: Small left pleural effusion. Coronary arteries: Coronary artery atherosclerotic calcification. Liver: Normal. No mass. Gallbladder and biliary ducts: Cholecystectomy. Pancreas: Normal. No ductal dilation. Spleen: Normal. No splenomegaly. Adrenal glands: Normal. No mass. Kidneys and ureters: Normal. No hydronephrosis. Stomach and bowel: Mildly prominent fluid in the stomach and small bowel, please correlate for a gastroenteritis. Appendix: No evidence of appendicitis. Intraperitoneal space: Unremarkable. No free air. No significant fluid collection. Vasculature: Aortic atherosclerotic calcifications. Lymph nodes: Unremarkable. No enlarged lymph nodes. Urinary bladder: Unremarkable as visualized. Reproductive: Unremarkable as visualized. 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 Soft tissues: Anasarca. Other findings: Small amount of nonspecific fluid in the pelvis. CT/CT abdomen pelvis con [id number] IMPRESSION: 1. Mildly prominent fluid in the stomach and small bowel, please correlate for a gastroenteritis. 2. 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 3. Coronary artery atherosclerotic calcification. 4. Emphysematous changes. 5. Small left pleural effusion. 6. Anasarca. 7. Left lower lobe atelectasis versus minimal infiltrate. 8. Cholecystectomy. 9. Aortic atherosclerotic calcifications. 10. Small amount of nonspecific fluid in the pelvis.
[2024-05-04 21:58] LABS: Alanine Aminotransferase 40 U/L (0-33); Albumin Level 3.6 g/dL (3.5-5.2); Anion Gap 17.4 (5-19); Aspartate Amino Transferase 24 U/L (0-32); Blood Urea Nitrogen 18 mg/dL (6-20); Calcium 8.4 mg/dL (8.5-10.5); Carbon Dioxide 24 mmol/L (22-29); Chloride 102 mmol/L (98-107); Creatinine Clr Calc Pharmacy 12.5693; Globulin 3.2 g/dL (1.3-4.6); Glomerular Filtration Rate 10.2 mL/min (90-130); Glucose 92 mg/dL (65-115); Lipase 9 U/L (13-60); Osmolality Calculated 288 mOsm/kg (285-295); Potassium 5.4 mmol/L (3.5-5.1); Sodium 138 mmol/L (136-145); Total Bilirubin 0.3 mg/dL (0.15-1.2); Total Protein 6.8 g/dL (6.6-8.7)
[2024-05-04 22:02] LABS: Add Urine Culture? Yes
[2024-05-04] MEDS: morphine 4 mg/mL SDV 1 mL 2 MG IVP (22:21)
[2024-05-04 22:49] LABS: Alkaline Phosphatase 154 U/L (35-105)
[2024-05-04] MEDS: cefTRIAXone 1,000 mg SDV 1000 MG IVP (23:04)
== END 2024-05-04 23:30 | disposition home or self-care (01) ==
PROVIDERS: Emergency Medicine; Emergency Provider Emergency Medicine; PCP Nurse Practitioner Family
DX: M54.50 Low back pain, unspecified (principal); Z79.4 Long term (current) use of insulin; Z79.02 Long term (current) use of antithrombotics/antiplatelets; Z87.891 Personal history of nicotine dependence; E10.22 Type 1 diabetes mellitus with diabetic chronic kidney disease; I13.2 Hypertensive heart and chronic kidney disease with heart failure and with stage 5 chronic kidney disease, or end stage renal disease; I50.9 Heart failure, unspecified; N18.6 End stage renal disease; Z99.2 Dependence on renal dialysis; J44.9 Chronic obstructive pulmonary disease, unspecified; I25.10 Atherosclerotic heart disease of native coronary artery without angina pectoris; E78.5 Hyperlipidemia, unspecified
CPT/HCPCS: 74176; 80053; 81001; 83690; 85025; 87086; 96374; 96375; 99285; J0696; J2270

== ENCOUNTER 2024-05-07 17:05 | Emergency (ER) | payer MEDICARE, MEDICAID, SELFPAY ==
[2024-05-07 17:09] VITALS: BP 194/102; PULSE 67; RESP 18; TEMP 36.8; O2SAT 98; BMI 24.0
--- NOTE | 2024-05-07 17:11 | ECG_ITS ---
[facility] Test Date: 2024-05-07 Pat Name: Donita Aguilar Department: Room: Gender: Female Regional Production Manager: : 1985 Requested By: Ronny Ayala Order Number: [id number] Faviola MD: Gilberto Eugene M.D. Measurements Intervals [place] Rate: 67 P: 13 [place]: 172 QRS: -17 QRSD: 106 T: 60 QT: 427 QTc: 452 Interpretive Statements SINUS RHYTHM NONSPECIFIC ST & T-WAVE ABNORMALITY Compared to ECG 04/28/2024 17:26:27 Possible ischemia no longer present T-wave abnormality still present Electronically Signed On 05-07-2024 21:26:30 FREIGHT LOADER by Gilberto Eugene M.D. [email or web address]
[2024-05-07 18:08] LABS: Basophils # 0.1 10^3/uL (0.0-0.1); Basophils % 1.2 %; Eosinophils # 0.3 10^3/uL (0.0-0.8); Eosinophils % 5.9 %; Hematocrit 35.9 % (36-47); Lymphocytes # 1.4 10^3/uL (0.8-4.8); Lymphocytes % 29.5 %; Mean Corpuscular HGB Conc 32.6 g/dL (30-55); Mean Corpuscular Volume 92.1 fl (85-98); Mean Platelet Volume 10.9 fL (7.4-10.4); Monocytes # 0.5 10^3/uL (0.2-0.9); Monocytes % 9.8 %; Neutrophils % 53.4 %; Nucleated Red Blood Cells % 0 %; Platelet Count 182 10^3/cmm (157-399); Red Cell Distribution Width 13.8 % (12.1-15.1); White Blood Count 4.88 10^3/uL (3.29-11.43)
[2024-05-07 18:15] LABS: Alanine Aminotransferase 29 U/L (0-33); Albumin Level 3.8 g/dL (3.5-5.2); Alkaline Phosphatase 157 U/L (35-105); Anion Gap 13.3 (5-19); Aspartate Amino Transferase 27 U/L (0-32); Blood Urea Nitrogen 4 mg/dL (6-20); Calcium 8.3 mg/dL (8.5-10.5); Carbon Dioxide 29 mmol/L (22-29); Chloride 97 mmol/L (98-107); Globulin 3.5 g/dL (1.3-4.6); Glomerular Filtration Rate 29.7 mL/min (90-130); Glucose 151 mg/dL (65-115); Osmolality Calculated 282 mOsm/kg (285-295); Potassium 3.3 mmol/L (3.5-5.1); Sodium 136 mmol/L (136-145); Total Bilirubin 0.4 mg/dL (0.15-1.2); Total Protein 7.3 g/dL (6.6-8.7)
--- NOTE | 2024-05-07 20:26 | ED_ITS ---
Documented by User: Bro James, 05/07/24 21:12 HPI - General Adult 2 General: Chief complaint: General Medical Stated complaint: hypertensive Time Seen by Provider: 05/07/24 20:17 History of Present Illness: Patient reports to the ER with a blood pressure lets high. States she took 2 clonidine at home and was given 2 more clonidine at the dialysis center and is barely get her blood pressure down below 200. Patient has no other complaints at this time. Related Data Home Medications Medication Instructions Recorded Confirmed clonidine HCl 0.1 mg tablet See Rx Instructions .Route 11/27/23 04/28/24 .COMPLEX PRN Blood Pressure gabapentin 100 mg capsule 100 mg PO TID 12/27/23 04/28/24 insulin glargine 100 unit/mL (3 5 unit SUBCUT QPM 04/06/24 04/28/24 mL) subcutaneous pen (Lantus Solostar U-100 Insulin) escitalopram oxalate 20 mg tablet 20 mg PO DAILY 04/13/24 04/28/24 clopidogrel 75 mg tablet 75 mg PO DAILY 04/28/24 04/28/24 Previous Rx's Medication Instructions Recorded blood-glucose meter,continuous #1 ea 06/12/22 (Dexcom G6 Test Design Engineer) blood-glucose sensor (Dexcom G6 #3 ea 06/12/22 Sensor device) blood-glucose transmitter (Dexcom #1 ea 06/12/22 G6 Transmitter device) sevelamer carbonate 800 mg tablet 800 mg PO TID #90 tabs 09/16/23 aspirin 81 mg tablet,delayed 81 mg PO QAM 30 days #30 tabs 03/28/24 release atorvastatin 40 mg tablet 40 mg PO BEDTIME 30 days #30 tabs 03/28/24 insulin aspart U-100 100 unit/mL 5 unit (0.05 mL) SUBCUT TID #15 mL 04/11/24 (3 mL) subcutaneous pen (Novolog FlexPen U-100 Insulin aspart) AFO brace #1 ea 04/20/24 diabetic shoes with 3 inserts #1 ea 04/20/24 cefdinir 300 mg capsule 300 mg PO BID 5 days #10 caps 05/04/24 Allergies Allergy/AdvReac Type Severity Reaction Status Date / Time acetaminophen AdvReac Mild ADR-Gastrointestinal Verified 05/07/24 17:15 Upset Review of Systems 2 General: Reports: 10 or more systems reviewed and unremarkable except in HPI and below PFSH ED 2 PFSH: Medical History Headache Accelerated hypertension Uncontrolled type 1 diabetes mellitus ESRD (end stage renal disease) Dialysis complication Hypoglycemia Hemodialysis catheter dysfunction Hyperkalemia Colitis End stage renal disease on dialysis COPD (chronic obstructive pulmonary disease) Diabetes mellitus Transaminitis Intractable nausea and vomiting Hyperlipidemia HTN (hypertension) CHF (congestive heart failure), NYHA class III Pulmonary hypertension CAD (coronary artery disease) Neurogenic bladder COVID-19 Tobacco dependence Drug abuse Anemia Community acquired pneumonia Esophagitis Long-term insulin use History of pancreatitis Celiac disease Recurrent UTI Non-alcoholic fatty liver disease Arnold-Chiari malformation Diabetic gastroparesis -continue Reglan Diabetic neuropathy associated with type 1 diabetes mellitus Headache, common migraine, intractable, with status migrainosus Pleural effusion 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 History of lung surgery -s/p LLL lobectomy secondary to cavitary pneumonia (2017) History of endoscopy History of cholecystectomy Family History Grandfather Diabetes Mother CAD (coronary artery disease) Diabetes Brother Acute lymphoblastic leukemia (ALL) in child Other Heart disease Hypertension Social History Smoking and tobacco/nicotine status: former use of tobacco/nicotine Quit status (tobacco/nicotine): has quit using Former quit date comment: She previously smoked <1/2 PPD, quit July 2023. Second hand smoke exposure: Yes Alcohol intake: never Substance/Drug Use: current Household members: children Housing: House Marital status: Single Current occupational status: unemployed Physical Exam 2 Const: COMMON NORMALS: no acute distress, average body habitus, patient oriented x3, no limitations, healthy appearing, alert and well nourished HENMT: COMMON NORMALS: normocephalic, atraumatic, hearing grossly normal bilaterally, external ears normal, Normal external nose present and moist oral mucous membranes HEAD & SCALP: normocephalic and atraumatic NOSE: Normal external nose present EXTERNAL EAR: Yes external ears normal Neck/C-Spine: COMMON NORMALS: no JVD Chest: COMMONS NORMALS: normal inspection of the chest and normal palpation of entire chest wall Resp: COMMON NORMALS: normal respiratory effort, No retractions, No use of accessory muscles and clear to auscultation bilaterally AUSCULTATION: clear to auscultation bilaterally Cardio: COMMON NORMALS: no JVD, regular rate, regular rhythm, S1 normal heart sound present, S2 normal heart sound present, No gallops present (Cardio), No clicks present (Cardio), No murmurs present (Cardio) and No rub (Cardio) R ATE: regular rate RHYTHM: regular rhythm HEART SOUNDS: S1 normal heart sound present and S2 normal heart sound present GI: COMMON NORMALS: Normal to inspection, nondistended, normoactive bowel sounds present, Soft to palpation, non-tender, No hepatosplenomegaly present and no masses PALPATION: Yes Soft to palpation and Yes No hepatosplenomegaly present Neuro: COMMON NORMALS: patient oriented x3 SENSORIUM/ORIENTATION: Yes alert Course 2 Vital Signs: Vital signs: Vital Signs Temperature 98.2 F 05/07/24 17:09 Pulse Rate 67 05/07/24 17:09 Respiratory Rate 18 05/07/24 17:09 Blood Pressure 194/102 05/07/24 17:09 Pulse Oximetry 98 05/07/24 17:09 Oxygen Delivery Me thod Room Air 05/07/24 17:09 MDM - General Adult Medical Decision Making Patient was given 20 mg hydralazine IM and 0.2 mg clonidine p.o. for blood pressure. And if this helps patient will be discharged from the ER. Medical Records I reviewed the patient's medical records. Lab Data I reviewed the patient's lab results. 05/07/24 17:41 05/07/24 17:41 Laboratory Results WBC 4.88 10^3/uL (3.29-11.43) 05/07/24 17:41 RBC 3.90 10^6/uL (3.85-5.65) 05/07/24 17:41 Hgb 11.70 g/dL (11.27-16.99) 05/07/24 17:41 Hct 35.9 % (36-47) L 05/07/24 17:41 MCV 92.1 fl (85-98) 05/07/24 17:41 MCH 30.0 pg (27-33) 05/07/24 17:41 MCHC 32.6 g/dL (30-55) 05/07/24 17:41 RDW 13.8 % (12.1-15.1) 05/07/24 17:41 Plt Count 182 10^3/cmm (157-399) 05/07/24 17:41 MPV 10.9 fL (7.4-10.4) H 05/07/24 17:41 Neut % (Auto) 53.4 % 05/07/24 17:41 Lymph % (Auto) 29.5 % 05/07/24 17:41 [place] % (Auto) 9.8 % 05/07/24 17:41 Eos % (Auto) 5.9 % 05/07/24 17:41 Baso % (Auto) 1.2 % 05/07/24 17:41 Neut # (Auto) 2.60 10^3/uL (1.8-7.7) 05/07/24 17:41 Lymph # (Auto) 1.4 10^3/uL (0.8-4.8) 05/07/24 17:41 [place] # (Auto) 0.5 10^3/uL (0.2-0.9) 05/07/24 17:41 Eos # (Auto) 0.3 10^3/uL (0.0-0.8) 05/07/24 17:41 Baso # (Auto) 0.1 10^3/uL (0.0-0.1) 05/07/24 17:41 Nucleated RBC % (auto) 0 % 05/07/24 17:41 Nucleated RBCs # 0.0 /100WBC 05/07/24 17:41 Sodium 136 mmol/L (136-145) 05/07/24 17:41 Potassium 3.3 mmol/L (3.5-5.1) L 05/07/24 17:41 Chloride 97 mmol/L (98-107) L 05/07/24 17:41 Carbon Dioxide 29 mmol/L (22-29) 05/07/24 17:41 Anion Gap 13.3 (5-19) 05/07/24 17:41 BUN 4 mg/dL (6-20) L 05/07/24 17:41 Creatinine 1.9 mg/dL (0.5-0.9) H 05/07/24 17:41 GFR Calculation 29.7 mL/min (90-130) L 05/07/24 17:41 Glucose 151 mg/dL (65-115) H 05/07/24 17:41 Calculated Osmolality 282 mOsm/kg (285-295) L 05/07/24 17:41 Calcium 8.3 mg/dL (8.5-10.5) L 05/07/24 17:41 Total Bilirubin 0.4 mg/dL (0.15-1.2) 05/07/24 17:41 AST 27 U/L (0-32) 05/07/24 17:41 ALT 29 U/L (0-33) 05/07/24 17:41 Alkaline Phosphatase 157 U/L (35-105) H 05/07/24 17:41 Total Protein 7.3 g/dL (6.6-8.7) 05/07/24 17:41 Albumin 3.8 g/dL (3.5-5.2) 05/07/24 17:41 Globulin 3.5 g/dL (1.3-4.6) 05/07/24 17:41 All radiology interpretation(s) finalized by discharge Discharge Plan Discharge Patient Disposition: Home Clinical Impression: Hypertension Qualifiers: Hypertension type: unspecified Qualified Code(s): I10 - Essential (primary) hypertension Condition: Stable Prescriptions: No Action (DME) AFO brace See Rx Instructions .Route .MEDSUPPLY Qty: 1 0RF Rx Instructions: As directed to the shoe guys (DME) diabetic shoes with 3 inserts See Rx Instructions .Route .MEDSUPPLY Qty: 1 0RF Rx Instructions: As directed to the shoe guys (DME) Dexcom G6 Test Design Engineer Misc See Rx Instructions .Route Qty: 1 0RF Rx Instructions: As directed (DME) Dexcom G6 Sensor Device See Rx Instructions .Route Qty: 3 0RF Rx Instructions: As directed (DME) Dexcom G6 Transmitter Device See Rx Instructions .Route Qty: 1 0RF Rx Instructions: As directed atorvastatin 40 mg tablet 40 mg PO BEDTIME 30 Days Qty: 30 0RF aspirin 81 mg tablet,delayed release (DR/EC) 81 mg PO QAM 30 Days Qty: 30 0RF insulin glargine [Lantus Solostar U-100 Insulin] 100 unit/mL (3 mL) Insulin Pen 5 unit SUBCUT QPM insulin aspart U-100 [Novolog FlexPen U-100 Insulin] 100 unit/mL (3 mL) insulin pen 5 unit SUBCUT TID Qty: 15 0RF Rx Instructions: sliding scale escitalopram oxalate 20 mg Tablet 20 mg PO DAILY sevelamer carbonate 800 mg Tablet 800 mg PO TID Qty: 90 0RF clonidine HCl 0.1 mg tablet See Rx Instructions .ROUTE .COMPLEX PRN (Reason: Blood Pressure) Rx Instructions: TAKE 1 TABLET IF SYSTOLIC BLOOD PRESSURE IS GREATER THAN 160, REPEAT ONCE IF SYSTOLIC BLOOD PRESSURE IS STILL OVER 160 AFTER 1 HOUR. gabapentin 100 mg Capsule 100 mg PO TID clopidogrel 75 mg tablet 75 mg PO DAILY cefdinir 300 mg capsule 300 mg PO BID 5 Days Qty: 10 0RF Discharge Orders: Discharge ED (Routine); Ordered 05/07/24 Ordered By: Bro James Referrals: Elizabeth Dougherty FNP [Primary Care Provider] - 1 week Patient Instructions: Hypertension (ED) Activity Restrictions/Additional Instructions: Thank you for choosing [facility] for your healthcare needs today. Please realize that you were seen in the emergency department and that we are providing you with an emergency medical screening exam and this may not be a complete and all exclusive of all testing and/or medical workup we may need to determine your element or severity of your illness. It is very important that you follow-up as instructed with your primary care provider or specialist for the additional evaluation and to discuss your medical treatment plan. You may return to the emergency department should you have concerns or if your condition changes or worsens in any way. Coding Level of Care Code ED Personal Injury Law Specialist for Chg Fwd Documented by User: Dawna Briceno MD 05/07/24 21:35 HPI - General Adult 2 General: Chief complaint: General Medical Stated complaint: hypertensive Time Seen by Provider: 05/07/24 20:17 Related Data Home Medications Medication Instructions Recorded Confirmed clonidine HCl 0.1 mg tablet See Rx Instructions .Route 11/27/23 04/28/24 .COMPLEX PRN Blood Pressure gabapentin 100 mg capsule 100 mg PO TID 12/27/23 04/28/24 insulin glargine 100 unit/mL (3 5 unit SUBCUT QPM 04/06/24 04/28/24 mL) subcutaneous pen (Lantus Solostar U-100 Insulin) escitalopram oxalate 20 mg tablet 20 mg PO DAILY 04/13/24 04/28/24 clopidogrel 75 mg tablet 75 mg PO DAILY 04/28/24 04/28/24 Previous Rx's Medication Instructions Recorded blood-glucose meter,continuous #1 ea 06/12/22 (Dexcom G6 Test Design Engineer) blood-glucose sensor (Dexcom G6 #3 ea 06/12/22 Sensor device) blood-glucose transmitter (Dexcom #1 ea 06/12/22 G6 Transmitter device) sevelamer carbonate 800 mg tablet 800 mg PO TID #90 tabs 09/16/23 aspirin 81 mg tablet,delayed 81 mg PO QAM 30 days #30 tabs 03/28/24 release atorvastatin 40 mg tablet 40 mg PO BEDTIME 30 days #30 tabs 03/28/24 insulin aspart U-100 100 unit/mL 5 unit (0.05 mL) SUBCUT TID #15 mL 04/11/24 (3 mL) subcutaneous pen (Novolog FlexPen U-100 Insulin aspart) AFO brace #1 ea 04/20/24 diabetic shoes with 3 inserts #1 ea 04/20/24 cefdinir 300 mg capsule 300 mg PO BID 5 days #10 caps 05/04/24 Allergies Allergy/AdvReac Type Severity Reaction Status Date / Time acetaminophen AdvReac Mild ADR-Gastrointestinal Verified 05/07/24 17:15 Upset PFSH ED 2 PFSH: Medical History Headache Accelerated hypertension Uncontrolled type 1 diabetes mellitus ESRD (end stage renal disease) Dialysis complication Hypoglycemia Hemodialysis catheter dysfunction Hyperkalemia Colitis End stage renal disease on dialysis COPD (chronic obstructive pulmonary disease) Diabetes mellitus Transaminitis Intractable nausea and vomiting Hyperlipidemia HTN (hypertension) CHF (congestive heart failure), NYHA class III Pulmonary hypertension CAD (coronary artery disease) Neurogenic bladder COVID-19 Tobacco dependence Drug abuse Anemia Community acquired pneumonia Esophagitis Long-term insulin use History of pancreatitis Celiac disease Recurrent UTI Non-alcoholic fatty liver disease Arnold-Chiari malformation Diabetic gastroparesis -continue Reglan Diabetic neuropathy associated with type 1 diabetes mellitus Headache, common migraine, intractable, with status migrainosus Pleural effusion 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 History of lung surgery -s/p LLL lobectomy secondary to cavitary pneumonia (2016) History of endoscopy History of cholecystectomy Family History Grandfather Diabetes Mother CAD (coronary artery disease) Diabetes Brother Acute lymphoblastic leukemia (ALL) in child Other Heart disease Hypertension Social History Smoking and tobacco/nicotine status: former use of tobacco/nicotine Quit status (tobacco/nicotine): has quit using Former quit date comment: She previously smoked <1/2 PPD, quit July 2023. Second hand smoke exposure: Yes Alcohol intake: never Substance/Drug Use: current Household members: children Housing: House Marital status: Single Current occupational status: unemployed Course 2 Vital Signs: Vital signs: Vital Signs Temperature 98.2 F 05/07/24 17:09 Pulse Rate 67 05/07/24 17:09 Respiratory Rate 18 05/07/24 17:09 Blood Pressure 194/102 05/07/24 17:09 Pulse Oximetry 98 05/07/24 17:09 Oxygen Delivery [place] thod Room Air 05/07/24 17:09 MDM - General Adult Medical Decision Making Patient was given 20 mg hydralazine IM and 0.2 mg clonidine p.o. for blood pressure. And if this helps patient will be discharged from the ER. Patient care transitioned to mt at shift change. Blood pressure improved and did not require clonidine. Patient discharged Lab Data 05/07/24 17:41 05/07/24 17:41 Laboratory Results WBC 4.88 10^3/uL (3.29-11.43) 11/14/24 17:41 RBC 3.90 10^6/uL (3.85-5.65) 05/07/24 17:41 Hgb 11.70 g/dL (11.27-16.99) 05/07/24 17:41 Hct 35.9 % (36-47) L 05/07/24 17:41 MCV 92.1 fl (85-98) 05/07/24 17:41 MCH 30.0 pg (27-33) 05/07/24 17:41 MCHC 32.6 g/dL (30-55) 05/07/24 17:41 RDW 13.8 % (12.1-15.1) 05/07/24 17:41 Plt Count 182 10^3/cmm (157-399) 05/07/24 17:41 MPV 10.9 fL (7.4-10.4) H 05/07/24 17:41 Neut % (Auto) 53.4 % 05/07/24 17:41 Lymph % (Auto) 29.5 % 05/07/24 17:41 [place] % (Auto) 9.8 % 05/07/24 17:41 Eos % (Auto) 5.9 % 05/07/24 17:41 Baso % (Auto) 1.2 % 05/07/24 17:41 Neut # (Auto) 2.60 10^3/uL (1.8-7.7) 05/07/24 17:41 Lymph # (Auto) 1.4 10^3/uL (0.8-4.8) 05/07/24 17:41 [place] # (Auto) 0.5 10^3/uL (0.2-0.9) 05/07/24 17:41 Eos # (Auto) 0.3 10^3/uL (0.0-0.8) 05/07/24 17:41 Baso # (Auto) 0.1 10^3/uL (0.0-0.1) 05/07/24 17:41 Nucleated RBC % (auto) 0 % 05/07/24 17:41 Nucleated RBCs # 0.0 /100WBC 05/07/24 17:41 Sodium 136 mmol/L (136-145) 05/07/24 17:41 Potassium 3.3 mmol/L (3.5-5.1) L 05/07/24 17:41 Chloride 97 mmol/L (98-107) L 05/07/24 17:41 Carbon Dioxide 29 mmol/L (22-29) 05/07/24 17:41 Anion Gap 13.3 (5-19) 05/07/24 17:41 BUN 4 mg/dL (6-20) L 05/07/24 17:41 Creatinine 1.9 mg/dL (0.5-0.9) H 05/07/24 17:41 GFR Calculation 29.7 mL/min (90-130) L 05/07/24 17:41 Glucose 151 mg/dL (65-115) H 05/07/24 17:41 Calculated Osmolality 282 mOsm/kg (285-295) L 05/07/24 17:41 Calcium 8.3 mg/dL (8.5-10.5) L 05/07/24 17:41 Total Bilirubin 0.4 mg/dL (0.15-1.2) 05/07/24 17:41 AST 27 U/L (0-32) 05/07/24 17:41 ALT 29 U/L (0-33) 05/07/24 17:41 Alkaline Phosphatase 157 U/L (35-105) H 05/07/24 17:41 Total Protein 7.3 g/dL (6.6-8.7) 05/07/24 17:41 Albumin 3.8 g/dL (3.5-5.2) 05/07/24 17:41 Globulin 3.5 g/dL (1.3-4.6) 05/07/24 17:41 Discharge Plan Discharge Patient Disposition: Home Clinical Impression: Hypertension Qualifiers: Hypertension type: unspecified Qualified Code(s): I10 - Essential (primary) hypertension Condition: Stable Prescriptions: No Action (DME) AFO brace See Rx Instructions .Route .MEDSUPPLY Qty: 1 0RF Rx Instructions: As directed to the shoe guys (DME) diabetic shoes with 3 inserts See Rx Instructions .Route .MEDSUPPLY Qty: 1 0RF Rx Instructions: As directed to the shoe guys (DME) Dexcom G6 Test Design Engineer Misc See Rx Instructions .Route Qty: 1 0RF Rx Instructions: As directed (DME) Dexcom G6 Sensor Device See Rx Instructions .Route Qty: 3 0RF Rx Instructions: As directed (DME) Dexcom G6 Transmitter Device See Rx Instructions .Route Qty: 1 0RF Rx Instructions: As directed atorvastatin 40 mg tablet 40 mg PO BEDTIME 30 Days Qty: 30 0RF aspirin 81 mg tablet,delayed release (DR/EC) 81 mg PO QAM 30 Days Qty: 30 0RF insulin glargine [Lantus Solostar U-100 Insulin] 100 unit/mL (3 mL) Insulin Pen 5 unit SUBCUT QPM insulin aspart U-100 [Novolog FlexPen U-100 Insulin] 100 unit/mL (3 mL) insulin pen 5 unit SUBCUT TID Qty: 15 0RF Rx Instructions: sliding scale escitalopram oxalate 20 mg Tablet 20 mg PO DAILY sevelamer carbonate 800 mg Tablet 800 mg PO TID Qty: 90 0RF clonidine HCl 0.1 mg tablet See Rx Instructions .ROUTE .COMPLEX PRN (Reason: Blood Pressure) Rx Instructions: TAKE 1 TABLET IF SYSTOLIC BLOOD PRESSURE IS GREATER THAN 160, REPEAT ONCE IF SYSTOLIC BLOOD PRESSURE IS STILL OVER 160 AFTER 1 HOUR. gabapentin 100 mg Capsule 100 mg PO TID clopidogrel 75 mg tablet 75 mg PO DAILY cefdinir 300 mg capsule 300 mg PO BID 5 Days Qty: 10 0RF Discharge Orders: Discharge ED (Routine); Ordered 05/07/24 Ordered By: Bro James Referrals: Elizabeth Dougherty FNP [Primary Care Provider] - 1 week Patient Instructions: Hypertension (ED) Activity Restrictions/Additional Instructions: Thank you for choosing [facility] for your healthcare needs today. Please realize that you were seen in the emergency department and that we are providing you with an emergency medical screening exam and this may not be a complete and all exclusive of all testing and/or medical workup we may need to determine your element or severity of your illness. It is very important that you follow-up as instructed with your primary care provider or specialist for the additional evaluation and to discuss your medical treatment plan. You may return to the emergency department should you have concerns or if your condition changes or worsens in any way. Coding Level of Care Code ED Personal Injury Law Specialist for Reji Chandler
[2024-05-07 20:45] VITALS: BP 192/120; PULSE 65; O2SAT 98
[2024-05-07] MEDS: hyDRALAzine 20 mg/mL INJ 1 mL IM (20:53)
[2024-05-07 21:00] VITALS: BP 191/124; PULSE 66; O2SAT 97
[2024-05-07 21:30] VITALS: BP 115/72; PULSE 70; O2SAT 99
[2024-05-07 21:56] VITALS: BP 136/68; PULSE 71; O2SAT 97
[2024-05-07 21:58] VITALS: BP 136/68
== END 2024-05-07 21:47 | disposition home or self-care (01) ==
PROVIDERS: Emergency Medicine; Emergency Provider Emergency Medicine; PCP Nurse Practitioner Family
DX: E10.22 Type 1 diabetes mellitus with diabetic chronic kidney disease (principal); I13.2 Hypertensive heart and chronic kidney disease with heart failure and with stage 5 chronic kidney disease, or end stage renal disease; I50.9 Heart failure, unspecified; N18.6 End stage renal disease; Z99.2 Dependence on renal dialysis; Z79.82 Long term (current) use of aspirin; I25.10 Atherosclerotic heart disease of native coronary artery without angina pectoris; Z87.891 Personal history of nicotine dependence
CPT/HCPCS: 80053; 85025; 93005; 96372; 99284; J0360

== ENCOUNTER 2024-05-10 21:13 | Emergency (ER) | payer MEDICARE, MEDICAID, SELFPAY ==
[2024-05-10 21:25] VITALS: BP 172/108; PULSE 57; RESP 16; TEMP 36.8; O2SAT 99
--- NOTE | 2024-05-10 22:19 | CTR_ITS ---
PROCEDURE INFORMATION: Exam: CT Head Without Contrast Exam date and time: 05/10/2024 11:33 PM Age: 38 years old Clinical indication: Pain; Visual disturbance; Headache; Patient HX: C/O MUJICA with blurred vision; Additional info: Headache, blurry vision TECHNIQUE: Imaging protocol: Computed tomography of the head without contrast. Radiation optimization: All CT scans at this facility use at least one of these dose optimization techniques: automated exposure control; mA and/or kV adjustment per patient size (includes targeted exams where dose is matched to clinical indication); or iterative reconstruction. COMPARISON: MR head wo/w con [id number] 04/13/2024 4:47 PM RADIATION DOSE METRICS: Total DLP (mGy-cm): 1015.38 FINDINGS: Brain: Normal. No hemorrhage, mass effect or midline shift. Cerebral ventricles: Ventricles are normal in size and position. Paranasal sinuses: Visualized sinuses are unremarkable. No fluid levels. Mastoid air cells: Visualized mastoid air cells are well aerated. Bones: Unremarkable. No acute fracture. Soft tissues: Unremarkable. CT/CT head wo con* [id number] IMPRESSION: No acute intracranial abnormality.
--- NOTE | 2024-05-10 22:20 | ECG_ITS ---
[facility] Test Date: 2024-05-10 Pat Name: Donita Augilar Department: Room: Gender: Female Noc Technician: : 1985 Requested By: Jak Saldana Order Number: [id number] Faviola MD: Gilberto Eugene M.D. Measurements Intervals [place] Rate: 60 P: 15 [place]: 176 QRS: -17 QRSD: 105 T: 15 QT: 450 QTc: 450 Interpretive Statements SINUS RHYTHM NONSPECIFIC T-WAVE ABNORMALITY Compared to ECG 05/07/2024 17:18:08 No significant changes Electronically Signed On 05-11-2024 19:24:49 NURSE AIDE EVALUATOR by Gilberto Eugene M.D. [email or web address]
[2024-05-10 22:27] VITALS: BP 177/89; PULSE 60; RESP 16; O2SAT 96
[2024-05-10 22:53] LABS: Basophils # 0.1 10^3/uL (0.0-0.1); Basophils % 0.9 %; Eosinophils # 0.3 10^3/uL (0.0-0.8); Eosinophils % 4.7 %; Hematocrit 39.6 % (36-47); Lymphocytes # 2.1 10^3/uL (0.8-4.8); Lymphocytes % 29.8 %; Mean Corpuscular HGB Conc 32.1 g/dL (30-55); Mean Corpuscular Volume 90.4 fl (85-98); Mean Platelet Volume 9.4 fL (7.4-10.4); Monocytes # 0.5 10^3/uL (0.2-0.9); Monocytes % 7.4 %; Neutrophils # 3.99 10^3/uL (1.8-7.7); Neutrophils % 56.9 %; Nucleated Red Blood Cells % 0 %; Platelet Count 229 10^3/cmm (157-399); Red Blood Count 4.38 10^6/uL (3.85-5.65); White Blood Count 7.01 10^3/uL (3.29-11.43)
[2024-05-10 23:09] LABS: Alanine Aminotransferase 34 U/L (0-33); Albumin Level 3.5 g/dL (3.5-5.2); Alkaline Phosphatase 144 U/L (35-105); Anion Gap 14.1 (5-19); Aspartate Amino Transferase 34 U/L (0-32); Blood Urea Nitrogen 18 mg/dL (6-20); C Reactive Protein 5.4 mg/L (0.0-4.9); Calcium 8.6 mg/dL (8.5-10.5); Carbon Dioxide 29 mmol/L (22-29); Chloride 101 mmol/L (98-107); Creatinine Clr Calc Pharmacy 14.0821; Globulin 3.6 g/dL (1.3-4.6); Glomerular Filtration Rate 11.6 mL/min (90-130); Glucose 100 mg/dL (65-115); Magnesium 2.1 mg/dL (1.7-2.3); Osmolality Calculated 292 mOsm/kg (285-295); Potassium 4.1 mmol/L (3.5-5.1); Sodium 140 mmol/L (136-145); Total Bilirubin 0.3 mg/dL (0.15-1.2); Total Protein 7.1 g/dL (6.6-8.7)
[2024-05-10 23:11] LABS: Alcohol Level < 10 mg/dL (0-10); Lactic Sepsis W/Reflex 0.9 mmol/L (0.5-2.2)
[2024-05-10 23:12] LABS: Erythrocyte Sedimentation Rate 12 mm/hr (0-15)
[2024-05-10 23:13] LABS: Ketone (Acetest) Serum Negative (Negative)
[2024-05-10] MEDS: ondansetron 2 mg/ML SDV 2 mL 4 MG IM (23:33)
[2024-05-10] MEDS: morphine 4 mg/mL SDV 1 mL 8 MG IM (23:33)
[2024-05-10 23:52] VITALS: BP 200/103; PULSE 60; RESP 13; O2SAT 98
[2024-05-11] VITALS: BP 173/83; PULSE 61; RESP 16; O2SAT 98
[2024-05-11 00:20] VITALS: BP 189/95
[2024-05-11] MEDS: haloperidol inj 5 mg/mL INJ 1 mL 3 MG IVP (01:01)
[2024-05-11] MEDS: morphine 4 mg/mL SDV 1 mL IVP (01:02)
[2024-05-11 01:30] VITALS: BP 134/76; PULSE 60; RESP 12; O2SAT 91
[2024-05-11] MEDS: valproic acid inj 500 MG in sodium chloride 0.9% 50 ML 55 MG IV (01:58)
[2024-05-11 02:00] VITALS: BP 136/76; PULSE 58; RESP 12; O2SAT 93
--- NOTE | 2024-05-11 02:12 | ED_ITS ---
HPI - General Adult 2 General: Chief complaint: General Medical Stated complaint: HP. sharp pain in Left eye and pressure Time Seen by Provider: 05/10/24 21:37 History of Present Illness: 38-year-old female. She is well-known t o the ER service. She presents with left sided headache, left eye pain and pressure. She has some vision changes and that the vision is blurry on that side. She has photosensitivity on that side. She has chronic right eye vision changes, for which she is supposed to follow-up with ophthalmology but has not. She has vomited. She has been nauseated. No other neurologic symptoms besides the headache and vision change. Related Data Home Medications Medication Instructions Recorded Confirmed clonidine HCl 0.1 mg tablet See Rx Instructions .Route 11/27/23 04/28/24 .COMPLEX PRN Blood Pressure gabapentin 100 mg capsule 100 mg PO TID 12/27/23 04/28/24 insulin glargine 100 unit/mL (3 5 unit SUBCUT QPM 04/06/24 04/28/24 mL) subcutaneous pen (Lantus Solostar U-100 Insulin) escitalopram oxalate 20 mg tablet 20 mg PO DAILY 04/13/24 04/28/24 clopidogrel 75 mg tablet 75 mg PO DAILY 04/28/24 04/28/24 Previous Rx's Medication Instructions Recorded blood-glucose meter,continuous #1 ea 06/12/22 (Dexcom G6 Print Machine Operator) blood-glucose sensor (Dexcom G6 #3 ea 06/12/22 Sensor device) blood-glucose transmitter (Dexcom #1 ea 06/12/22 G6 Transmitter device) sevelamer carbonate 800 mg tablet 800 mg PO TID #90 tabs 09/16/23 aspirin 81 mg tablet,delayed 81 mg PO QAM 30 days #30 tabs 03/28/24 release atorvastatin 40 mg tablet 40 mg PO BEDTIME 30 days #30 tabs 03/28/24 insulin aspart U-100 100 unit/mL 5 unit (0.05 mL) SUBCUT TID #15 mL 04/11/24 (3 mL) subcutaneous pen (Novolog FlexPen U-100 Insulin aspart) AFO brace #1 ea 04/20/24 diabetic shoes with 3 inserts #1 ea 04/20/24 Allergies Allergy/AdvReac Type Severity Reaction Status Date / Time acetaminophen AdvReac Mild ADR-Gastrointestinal Verified 05/10/24 21:27 Upset [facility] ED 2 PFSH: Medical History Headache Accelerated hypertension Uncontrolled type 1 diabetes mellitus ESRD (end stage renal disease) Dialysis complication Hypoglycemia Hemodialysis catheter dysfunction Hyperkalemia Colitis End stage renal disease on dialysis COPD (chronic obstructive pulmonary disease) Diabetes mellitus Transaminitis Intractable nausea and vomiting Hyperlipidemia HTN (hypertension) CHF (congestive heart failure), NYHA class III Pulmonary hypertension CAD (coronary artery disease) Neurogenic bladder COVID-19 Tobacco dependence Drug abuse Anemia Community acquired pneumonia Esophagitis Long-term insulin use History of pancreatitis Celiac disease Recurrent UTI Non-alcoholic fatty liver disease Arnold-Chiari malformation Diabetic gastroparesis -continue Reglan Diabetic neuropathy associated with type 1 diabetes mellitus Headache, common migraine, intractable, with status migrainosus Pleural effusion 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 History of lung surgery -s/p LLL lobectomy secondary to cavitary pneumonia (2017) History of endoscopy History of cholecystectomy Family History Grandfather Diabetes Mother CAD (coronary artery disease) Diabetes Brother Acute lymphoblastic leukemia (ALL) in child Other Heart disease Hypertension Social History Smoking and tobacco/nicotine status: former use of tobacco/nicotine Quit status (tobacco/nicotine): has quit using Former quit date comment: She previously smoked <1/2 PPD, quit July 2023. Second hand smoke exposure: Yes Alcohol intake: never Substance/Drug Use: current Household members: children Housing: House Marital status: Single Current occupational status: unemployed Physical Exam 2 Const: GENERAL APPEARANCE: cooperative and appears older than stated age HENMT: COMMON NORMALS: normocephalic and atraumatic HEAD & SCALP: n ormocephalic and atraumatic FACE & SINUS: face symmetric Eye: COMMON NORMALS: Equal, round and reactive pupils present, EOMs intact bilaterally and conjunctivae normal GENERAL EYE: normal light reflex C ONJUNCTIVA: Yes conjunctivae normal PUPIL: Yes Equal, round and reactive pupils present DIRECT OPHTHALMOSCOPY: Yes normal light reflex Resp: COMMON NORMALS: normal respiratory effort and No use of accessory muscles Cardio: COMMON NORMALS: regular rate and regular rhythm RATE: regular rate RHYTHM: regular rhythm Neuro: JEET COMA SCALE: document GCS findings Kerman coma scale eye opening: Spontaneous Jeet coma scale verbal response: Orientated Jeet coma scale motor response: Obey commands Jeet coma scale total score: 15 S PEECH: speech normal Course 2 Vital Signs: Vital signs: Vital Signs Temperature 98.2 F 05/10/24 21:25 Pulse Rate 57 L 05/11/24 02:19 Respiratory Rate 16 05/11/24 02:19 Blood Pressure 136/78 05/11/24 02:19 Pulse Oximetry 94 05/11/24 02:19 Oxygen Delivery Me thod Nasal Cannula 05/11/24 02:00 MDM - General Adult Medical Decision Making Difficult in getting IV access in this patient. Once achieved, she was given pain medication, IV Depacon, etc. for migraine. Her headache is essentially resolved. Her vision changes have resolved as well in the left eye. Intraocular pressure was measured as 7 in the left eye. Pupil is reactive. With clearing of vision, improvement in her symptoms, and benign laboratory, she will be discharged. Head CT was nonacute. Lab Data 05/10/24 22:46 05/10/24 22:[address] 05/10/24 22:19 IMPRESSION: No acute intracranial abnormality. Laboratory Results WBC 7.01 10^3/uL (3.29-11.43) 05/10/24 22:46 RBC 4.38 10^6/uL (3.85-5.65) 05/10/24 22:46 Hgb 12.70 g/dL (11.27-16.99) 05/10/24 22:46 Hct 39.6 % (36-47) 05/10/24 22:46 MCV 90.4 fl (85-98) 05/10/24 22:46 MCH 29.0 pg (27-33) 05/10/24 22:46 MCHC 32.1 g/dL (30-55) 05/10/24 22:46 RDW 14.0 % (12.1-15.1) 05/10/24 22:46 Plt Count 229 10^3/cmm (157-399) 05/10/24 22:46 MPV 9.4 fL (7.4-10.4) 05/10/24 22:46 Neut % (Auto) 56.9 % 05/10/24 22:46 Lymph % (Auto) 29.8 % 05/10/24 22:46 Bullock % (Auto) 7.4 % 05/10/24 22:46 Eos % (Auto) 4.7 % 05/10/24 22:46 Baso % (Auto) 0.9 % 05/10/24 22:46 Neut # (Auto) 3.99 10^3/uL (1.8-7.7) 05/10/24 22:46 Lymph # (Auto) 2.1 10^3/uL (0.8-4.8) 05/10/24 22:46 Bullock # (Auto) 0.5 10^3/uL (0.2-0.9) 05/10/24 22:46 Eos # (Auto) 0.3 10^3/uL (0.0-0.8) 05/10/24 22:46 Baso # (Auto) 0.1 10^3/uL (0.0-0.1) 05/10/24 22:46 Nucleated RBC % (auto) 0 % 05/10/24 22:46 Nucleated RBCs # 0.0 /100WBC 05/10/24 22:46 ESR 12 mm/hr (0-15) 05/10/24 22:46 Sodium 140 mmol/L (136-145) 05/10/24 22:46 Potassium 4.1 mmol/L (3.5-5.1) 05/10/24 22:46 Chloride 101 mmol/L (98-107) 05/10/24 22:46 Carbon Dioxide 29 mmol/L (22-29) 05/10/24 22:46 Anion Gap 14.1 (5-19) 05/10/24 22:46 BUN 18 mg/dL (6-20) 05/10/24 22:46 Creatinine 4.3 mg/dL (0.5-0.9) H 05/10/24 22:46 GFR Calculation 11.6 mL/min (90-130) L 05/10/24 22:46 Glucose 100 mg/dL (65-115) 05/10/24 22:46 Calculated Osmolality 292 mOsm/kg (285-295) 05/10/24 22:46 Lactic Acid 0.9 mmol/L (0.5-2.2) 05/10/24 22:46 Calcium 8.6 mg/dL (8.5-10.5) 05/10/24 22:46 Phosphorus 4.0 mg/dL (2.5-4.5) 05/10/24 22:46 Magnesium 2.1 mg/dL (1.7-2.3) 05/10/24 22:46 Total Bilirubin 0.3 mg/dL (0.15-1.2) 05/10/24 22:46 AST 34 U/L (0-32) H 05/10/24 22:46 ALT 34 U/L (0-33) H 05/10/24 22:46 Alkaline Phosphatase 144 U/L (35-105) H 05/10/24 22:46 C-Reactive Protein 5.4 mg/L (0.0-4.9) H 05/10/24 22:46 Total Protein 7.1 g/dL (6.6-8.7) 05/10/24 22:46 Albumin 3.5 g/dL (3.5-5.2) 05/10/24 22:46 Globulin 3.6 g/dL (1.3-4.6) 05/10/24 22:46 Ethyl Alcohol < 10 mg/dL (0-10) 05/10/24 22:46 Serum Ketones Negative (Negative) 05/10/24 22:46 All radiology interpretation(s) finalized by discharge Discharge Plan Discharge Patient Disposition: Home Clinical Impression: Headache, common migraine, intractable, with status migrainosus Condition: Stable Prescriptions: No Action (DME) AFO brace See Rx Instructions .Route .MEDSUPPLY Qty: 1 0RF Rx Instructions: As directed to the shoe guys (DME) diabetic shoes with 3 inserts See Rx Instructions .Route .MEDSUPPLY Qty: 1 0RF Rx Instructions: As directed to the shoe guys (DME) Dexcom G6 Print Machine Operator Misc See Rx Instructions .Route Qty: 1 0RF Rx Instructions: As directed (DME) Dexcom G6 Sensor Device See Rx Instructions .Route Qty: 3 0RF Rx Instructions: As directed (DME) Dexcom G6 Transmitter Device See Rx Instructions .Route Qty: 1 0RF Rx Instructions: As directed atorvastatin 40 mg tablet 40 mg PO BEDTIME 30 Days Qty: 30 0RF aspirin 81 mg tablet,delayed release (DR/EC) 81 mg PO QAM 30 Days Qty: 30 0RF insulin glargine [Lantus Solostar U-100 Insulin] 100 unit/mL (3 mL) Insulin Pen 5 unit SUBCUT QPM insulin aspart U-100 [Novolog FlexPen U-100 Insulin] 100 unit/mL (3 mL) insulin pen 5 unit SUBCUT TID Qty: 15 0RF Rx Instructions: sliding scale escitalopram oxalate 20 mg Tablet 20 mg PO DAILY sevelamer carbonate 800 mg Tablet 800 mg PO TID Qty: 90 0RF clonidine HCl 0.1 mg tablet See Rx Instructions .ROUTE .COMPLEX PRN (Reason: Blood Pressure) Rx Instructions: TAKE 1 TABLET IF SYSTOLIC BLOOD PRESSURE IS GREATER THAN 160, REPEAT ONCE IF SYSTOLIC BLOOD PRESSURE IS STILL OVER 160 AFTER 1 HOUR. gabapentin 100 mg Capsule 100 mg PO TID clopidogrel 75 mg tablet 75 mg PO DAILY Discharge Orders: Discharge ED (Routine); Ordered 05/11/24 Ordered By: Jak Larose Referrals: Elizabeth Dougherty FNP [Primary Care Provider] - 1-3 days Mao Navas [Physician] - 1-3 days Patient Instructions: Migraine Headache (ED), Ocular Migraine (ED), Opioid Safety, Pain Management Activity Restrictions/Additional Instructions: Return for worsening pain, vision changes, other concerning symptoms. Call ophthalmology later this morning, for a follow-up appointment for both of your eyes Coding Level of Care Code ED Sign Fabricator for Reji Chandler
[2024-05-11 02:19] VITALS: BP 136/78; PULSE 57; RESP 16; O2SAT 94
== END 2024-05-11 02:43 | disposition home or self-care (01) ==
PROVIDERS: Emergency Provider Emergency Medicine; PCP Nurse Practitioner Family
DX: G43.911 Migraine, unspecified, intractable, with status migrainosus (principal); Z79.82 Long term (current) use of aspirin; Z79.4 Long term (current) use of insulin; Z79.02 Long term (current) use of antithrombotics/antiplatelets; Z87.891 Personal history of nicotine dependence; E10.22 Type 1 diabetes mellitus with diabetic chronic kidney disease; I13.2 Hypertensive heart and chronic kidney disease with heart failure and with stage 5 chronic kidney disease, or end stage renal disease; I50.9 Heart failure, unspecified; N18.6 End stage renal disease; E10.649 Type 1 diabetes mellitus with hypoglycemia without coma; E10.43 Type 1 diabetes mellitus with diabetic autonomic (poly)neuropathy; K31.84 Gastroparesis; E10.10 Type 1 diabetes mellitus with ketoacidosis without coma
CPT/HCPCS: 36415; 70450; 80053; 80307; 82009; 83605; 83735; 84100; 85025; 85651; 86140; 93005; 96365; 96372; 96375; 99285; J1630; J2270; J2405; J3490

== ENCOUNTER → 2024-05-13 16:27 | Outpatient (BNVA) | payer MEDICARE, MEDICAID, SELFPAY | PROVIDERS: PCP Nurse Practitioner Family; Visit Provider Nurse Practitioner Women's Health | DX: Z12.4 Encounter for screening for malignant neoplasm of cervix (principal); Z97.5 Presence of (intrauterine) contraceptive device | CPT/HCPCS: 87624 ==

== ENCOUNTER 2024-06-01 20:33 | Emergency (ER) | payer MEDICARE, MEDICAID, SELFPAY ==
[2024-06-01 20:43] VITALS: BP 176/111; PULSE 81; RESP 16; TEMP 36.7; O2SAT 99
--- NOTE | 2024-06-01 20:49 | ECG_ITS ---
[facility] Date: 2024-06-01 Pat Name: Donita Aguilar Department: Room: Gender: Female Notch Grinder: : 1985 Requested By: Bro James Order Number: [id number] Salmeron MD: Gilberto Eugene M.D. Measurements Intervals [place] Rate: 81 P: 9 WA: 169 QRS: -21 QRSD: 105 T: -16 QT: 399 QTc: 465 Interpretive Statements SINUS RHYTHM Non diagnostic T wave changes BORDERLINE LEFT AXIS DEVIATION [QRS AXIS < -20] Compared to ECG 05/10/2024 23:42:25 Electronically Signed On 06-03-2024 00:58:55 DENTURE MODEL MAKER by Gilberto Eugene M.D. [email or web address]
[2024-06-01 22:09] LABS: Basophils # 0.1 10^3/uL (0.0-0.1); Basophils % 0.7 %; Eosinophils # 0.4 10^3/uL (0.0-0.8); Eosinophils % 4.6 %; Hematocrit 39.9 % (36-47); Lymphocytes # 1.7 10^3/uL (0.8-4.8); Lymphocytes % 19.3 %; Mean Corpuscular HGB Conc 32.8 g/dL (30-55); Mean Corpuscular Hemoglobin 29.2 pg (27-33); Mean Corpuscular Volume 89.1 fl (85-98); Mean Platelet Volume 9.8 fL (7.4-10.4); Monocytes # 0.5 10^3/uL (0.2-0.9); Monocytes % 6.2 %; Neutrophils # 5.92 10^3/uL (1.8-7.7); Neutrophils % 69.1 %; Nucleated Red Blood Cells % 0 %; Platelet Count 156 10^3/cmm (157-399); Red Blood Count 4.48 10^6/uL (3.85-5.65); Red Cell Distribution Width 14.6 % (12.1-15.1); White Blood Count 8.56 10^3/uL (3.29-11.43)
[2024-06-01 22:34] VITALS: BP 146/90; PULSE 79; RESP 18; O2SAT 97
[2024-06-01 22:34] LABS: Alanine Aminotransferase 95 U/L (0-33); Albumin Level 4.1 g/dL (3.5-5.2); Alkaline Phosphatase 178 U/L (35-105); Anion Gap 19.2 (5-19); Aspartate Amino Transferase 99 U/L (0-32); Blood Urea Nitrogen 38 mg/dL (6-20); Calcium 8.9 mg/dL (8.5-10.5); Carbon Dioxide 24 mmol/L (22-29); Chloride 101 mmol/L (98-107); Creatinine Clr Calc Pharmacy 10.0922; Globulin 3.8 g/dL (1.3-4.6); Glomerular Filtration Rate 7.9 mL/min (90-130); Glucose 181 mg/dL (65-115); Osmolality Calculated 302 mOsm/kg (285-295); Potassium 5.2 mmol/L (3.5-5.1); Sodium 139 mmol/L (136-145); Total Bilirubin 0.4 mg/dL (0.15-1.2); Total Protein 7.9 g/dL (6.6-8.7)
[2024-06-01 23:07] LABS: Magnesium 2.2 mg/dL (1.7-2.3); Phosphorus 6.2 mg/dL (2.5-4.5)
--- NOTE | 2024-06-01 23:09 | ED_ITS ---
HPI - General Adult 2 General: Chief complaint: General Medical Stated complaint: high BP back pain and pain in cath Time Seen by Provider: 06/01/24 22:24 History of Present Illness: Patient arrived to the ER with complaints of blood pressure being in the 200s over 100s, and also having some right sided pain where her dialysis port is. Patient did take all her blood pressure medicine today and she said it was still high. Patient been having this pain over her dialysis port for about the last 3 days. Patient denies any nausea vomiting diarrhea fevers chills. Upon arrival blood pressure was 176/111 and then upon recheck not to long after that it was 146/90, Related Data Home Medications Medication Instructions Recorded Confirmed clonidine HCl 0.1 mg tablet See Rx Instructions .Route 11/27/23 05/13/24 .COMPLEX PRN Blood Pressure gabapentin 100 mg capsule 100 mg PO TID 12/27/23 05/13/24 insulin glargine 100 unit/mL (3 5 unit SUBCUT QPM 04/06/24 05/13/24 mL) subcutaneous pen (Lantus Solostar U-100 Insulin) escitalopram oxalate 20 mg tablet 20 mg PO DAILY 04/13/24 05/13/24 clopidogrel 75 mg tablet 75 mg PO DAILY 04/28/24 05/13/24 Previous Rx's Medication Instructions Recorded blood-glucose meter,continuous #1 ea 06/12/22 (Dexcom G6 Business Taxes Specialist) blood-glucose sensor (Dexcom G6 #3 ea 06/12/22 Sensor device) blood-glucose transmitter (Dexcom #1 ea 06/12/22 G6 Transmitter device) sevelamer carbonate 800 mg tablet 800 mg PO TID #90 tabs 09/16/23 aspirin 81 mg tablet,delayed 81 mg PO QAM 30 days #30 tabs 03/28/24 release atorvastatin 40 mg tablet 40 mg PO BEDTIME 30 days #30 tabs 03/28/24 insulin aspart U-100 100 unit/mL 5 unit (0.05 mL) SUBCUT TID #15 mL 04/11/24 (3 mL) subcutaneous pen (Novolog FlexPen U-100 Insulin aspart) AFO brace #1 ea 04/20/24 diabetic shoes with 3 inserts #1 ea 04/20/24 Allergies Allergy/AdvReac Type Severity Reaction Status Date / Time acetaminophen AdvReac Mild ADR-Gastrointestinal Verified 06/01/24 20:48 Upset Review of Systems 2 General: Reports: 10 or more systems reviewed and unremarkable except in HPI and below PFSH ED 2 PFSH: Medical History Headache Accelerated hypertension Uncontrolled type 1 diabetes mellitus ESRD (end stage renal disease) Dialysis complication Hypoglycemia Hemodialysis catheter dysfunction Hyperkalemia Colitis End stage renal disease on dialysis COPD (chronic obstructive pulmonary disease) Diabetes mellitus Transaminitis Intractable nausea and vomiting Hyperlipidemia HTN (hypertension) CHF (congestive heart failure), NYHA class III Pulmonary hypertension CAD (coronary artery disease) Neurogenic bladder COVID-19 Tobacco dependence Drug abuse Anemia Community acquired pneumonia Esophagitis Long-term insulin use History of pancreatitis Celiac disease Recurrent UTI Non-alcoholic fatty liver disease Arnold-Chiari malformation Diabetic gastroparesis -continue Reglan Diabetic neuropathy associated with type 1 diabetes mellitus Headache, common migraine, intractable, with status migrainosus Pleural effusion 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 History of lung surgery -s/p LLL lobectomy secondary to cavitary pneumonia (2017) History of endoscopy History of cholecystectomy Family History Grandfather Diabetes Mother CAD (coronary artery disease) Diabetes Heart disease Hypertension Brother Acute lymphoblastic leukemia (ALL) in child Grandmother Thyroid disease Denies family history of Colon cancer Ovarian cancer Prostate cancer Hyperlipidemia Breast cancer Uterine cancer Stroke Social History Smoking and tobacco/nicotine status: former use of tobacco/nicotine Quit status (tobacco/nicotine): has quit using Former quit date comment: She previously smoked <1/2 PPD, quit July 2023. Second hand smoke exposure: Yes Alcohol intake: never Substance/Drug Use: current Household members: children Housing: House Marital status: Single Current occupational status: unemployed Physical Exam 2 Const: COMMON NORMALS: no acute distress, average body habitus, patient oriented x3, no limitations, healthy appearing, alert and well nourished HENMT: COMMON NORMALS: normocephalic, atraumatic, hearing grossly normal bilaterally, external ears normal, Normal external nose present and moist oral mucous membranes HEAD & SCALP: normocephalic and atraumatic NOSE: Normal external nose present EXTERNAL EAR: Yes external ears normal Neck/C-Spine: COMMON NORMALS: no JVD Chest: COMMONS NORMALS: normal inspection of the chest and normal palpation of entire chest wall Resp: COMMON NORMALS: normal respiratory effort, No retractions, No use of accessory muscles and clear to auscultation bilaterally AUSCULTATION: clear to auscultation bilaterally Cardio: COMMON NORMALS: no JVD, regular rate, regular rhythm, S1 normal heart sound present, S2 normal heart sound present, No gallops present (Cardio), No clicks present (Cardio), No murmurs present (Cardio) and No rub (Cardio) R ATE: regular rate RHYTHM: regular rhythm HEART SOUNDS: S1 normal heart sound present and S2 normal heart sound present GI: COMMON NORMALS: Normal to inspection, nondistended, normoactive bowel sounds present, Soft to palpation, non-tender, No hepatosplenomegaly present and no masses PALPATION: Yes Soft to palpation and Yes No hepatosplenomegaly present Neuro: COMMON NORMALS: patient oriented x3 SENSORIUM/ORIENTATION: Yes alert Course 2 Vital Signs: Vital signs: Vital Signs Temperature 98.0 F 06/01/24 20:43 Pulse Rate 79 06/01/24 22:34 Respiratory Rate 18 06/01/24 22:34 Blood Pressure 146/90 06/01/24 22:34 Pulse Oximetry 97 06/01/24 22:34 Oxygen Delivery Me thod Room Air 06/01/24 22:34 MDM - General Adult Medical Decision Making Lab work was obtained which is essentially unremarkable for the patient. Blood pressure resolved on its own. Patient declined [place] for pain control but was given 4 mg morphine IM. Patient be discharged home. Medical Records I reviewed the patient's medical records. Lab Data I reviewed the patient's lab results. 06/01/24 21:56 06/01/24 21:56 Laboratory Results WBC 8.56 10^3/uL (3.29-11.43) 06/01/24 21:56 RBC 4.48 10^6/uL (3.85-5.65) 06/01/24 21:56 Hgb 13.10 g/dL (11.27-16.99) 06/01/24 21:56 Hct 39.9 % (36-47) 06/01/24 21:56 MCV 89.1 fl (85-98) 06/01/24 21:56 MCH 29.2 pg (27-33) 06/01/24 21:56 MCHC 32.8 g/dL (30-55) 06/01/24 21:56 RDW 14.6 % (12.1-15.1) 06/01/24 21:56 Plt Count 156 10^3/cmm (157-399) L 06/01/24 21:56 MPV 9.8 fL (7.4-10.4) 06/01/24 21:56 Neut % (Auto) 69.1 % 06/01/24 21:56 Lymph % (Auto) 19.3 % 06/01/24 21:56 [place] % (Auto) 6.2 % 06/01/24 21:56 Eos % (Auto) 4.6 % 06/01/24 21:56 Baso % (Auto) 0.7 % 06/01/24 21:56 Neut # (Auto) 5.92 10^3/uL (1.8-7.7) 06/01/24 21:56 Lymph # (Auto) 1.7 10^3/uL (0.8-4.8) 06/01/24 21:56 [place] # (Auto) 0.5 10^3/uL (0.2-0.9) 06/01/24 21:56 Eos # (Auto) 0.4 10^3/uL (0.0-0.8) 06/01/24 21:56 Baso # (Auto) 0.1 10^3/uL (0.0-0.1) 06/01/24 21:56 Nucleated RBC % (auto) 0 % 06/01/24 21:56 Nucleated RBCs # 0.0 /100WBC 06/01/24 21:56 Sodium 139 mmol/L (136-145) 06/01/24 21:56 Potassium 5.2 mmol/L (3.5-5.1) H 06/01/24 21:56 Chloride 101 mmol/L (98-107) 06/01/24 21:56 Carbon Dioxide 24 mmol/L (22-29) 06/01/24 21:56 Anion Gap 19.2 (5-19) H 06/01/24 21:56 BUN 38 mg/dL (6-20) H 06/01/24 21:56 Creatinine 6.0 mg/dL (0.5-0.9) H* 06/01/24 21:56 GFR Calculation 7.9 mL/min (90-130) L 06/01/24 21:56 Glucose 181 mg/dL (65-115) H 06/01/24 21:56 Calculated Osmolality 302 mOsm/kg (285-295) H 06/01/24 21:56 Calcium 8.9 mg/dL (8.5-10.5) 06/01/24 21:56 Phosphorus 6.2 mg/dL (2.5-4.5) H 06/01/24 21:56 Magnesium 2.2 mg/dL (1.7-2.3) 06/01/24 21:56 Total Bilirubin 0.4 mg/dL (0.15-1.2) 06/01/24 21:56 AST 99 U/L (0-32) H 06/01/24 21:56 ALT 95 U/L (0-33) H 06/01/24 21:56 Alkaline Phosphatase 178 U/L (35-105) H 06/01/24 21:56 Total Protein 7.9 g/dL (6.6-8.7) 06/01/24 21:56 Albumin 4.1 g/dL (3.5-5.2) 06/01/24 21:56 Globulin 3.8 g/dL (1.3-4.6) 06/01/24 21:56 No radiology studies performed this visit Discharge Plan Discharge Patient Disposition: Home Clinical Impression: ESRD on dialysis Hypertension Qualifiers: Hypertension type: unspecified Qualified Code(s): I10 - Essential (primary) hypertension Condition: Stable Prescriptions: No Action (DME) AFO brace See Rx Instructions .Route .MEDSUPPLY Qty: 1 0RF Rx Instructions: As directed to the shoe guys (DME) diabetic shoes with 3 inserts See Rx Instructions .Route .MEDSUPPLY Qty: 1 0RF Rx Instructions: As directed to the shoe guys (DME) Dexcom G6 Business Taxes Specialist Misc See Rx Instructions .Route Qty: 1 0RF Rx Instructions: As directed (DME) Dexcom G6 Sensor Device See Rx Instructions .Route Qty: 3 0RF Rx Instructions: As directed (DME) Dexcom G6 Transmitter Device See Rx Instructions .Route Qty: 1 0RF Rx Instructions: As directed atorvastatin 40 mg tablet 40 mg PO BEDTIME 30 Days Qty: 30 0RF aspirin 81 mg tablet,delayed release (DR/EC) 81 mg PO QAM 30 Days Qty: 30 0RF insulin glargine [Lantus Solostar U-100 Insulin] 100 unit/mL (3 mL) Insulin Pen 5 unit SUBCUT QPM insulin aspart U-100 [Novolog FlexPen U-100 Insulin] 100 unit/mL (3 mL) insulin pen 5 unit SUBCUT TID Qty: 15 0RF Rx Instructions: sliding scale escitalopram oxalate 20 mg Tablet 20 mg PO DAILY sevelamer carbonate 800 mg Tablet 800 mg PO TID Qty: 90 0RF clonidine HCl 0.1 mg tablet See Rx Instructions .ROUTE .COMPLEX PRN (Reason: Blood Pressure) Rx Instructions: TAKE 1 TABLET IF SYSTOLIC BLOOD PRESSURE IS GREATER THAN 160, REPEAT ONCE IF SYSTOLIC BLOOD PRESSURE IS STILL OVER 160 AFTER 1 HOUR. gabapentin 100 mg Capsule 100 mg PO TID clopidogrel 75 mg tablet 75 mg PO DAILY Discharge Orders: Discharge ED (Routine); Ordered 06/01/24 Ordered By: Bro James Referrals: Elizabeth Dougherty FNP [Primary Care Provider] - 1 week Patient Instructions: Hypertension Activity Restrictions/Additional Instructions: Thank you for choosing [facility] for your healthcare needs today. Please realize that you were seen in the emergency department and that we are providing you with an emergency medical screening exam and this may not be a complete and all exclusive of all testing and/or medical workup we may need to determine your element or severity of your illness. It is very important that you follow-up as instructed with your primary care provider or specialist for the additional evaluation and to discuss your medical treatment plan. You may return to the emergency department should you have concerns or if your condition changes or worsens in any way. Coding Level of Care Code ED Correspondence Transcriber for Reji Chandler
[2024-06-01] MEDS: morphine 4 mg/mL SDV 1 mL IM (23:13)
[2024-06-01 23:17] VITALS: BP 146/90; PULSE 80; RESP 16; O2SAT 98
== END 2024-06-01 23:35 | disposition home or self-care (01) ==
PROVIDERS: Emergency Medicine; Emergency Provider Emergency Medicine; PCP Nurse Practitioner Family
DX: E11.22 Type 2 diabetes mellitus with diabetic chronic kidney disease (principal); I13.2 Hypertensive heart and chronic kidney disease with heart failure and with stage 5 chronic kidney disease, or end stage renal disease; I50.9 Heart failure, unspecified; N18.6 End stage renal disease; Z99.2 Dependence on renal dialysis; J44.9 Chronic obstructive pulmonary disease, unspecified; Z87.891 Personal history of nicotine dependence; Z79.02 Long term (current) use of antithrombotics/antiplatelets; Z79.4 Long term (current) use of insulin
CPT/HCPCS: 36415; 80053; 83735; 84100; 85025; 93005; 96372; 99284; J2270

== ENCOUNTER 2024-06-09 03:33 | Emergency (ER) | payer MEDICARE, MEDICAID, SELFPAY ==
[2024-06-09] VITALS (8 sets, daily range): BP systolic 112–126; BP diastolic 68–72; PULSE 73–75; RESP 16; TEMP 36.7; O2SAT 95–100; BMI 24.2
--- NOTE | 2024-06-09 03:45 | XRR_ITS ---
PROCEDURE INFORMATION: Exam: XR Chest Exam date and time: 06/09/2024 3:52 AM Age: 38 years old Clinical indication: Chest wall pain; Prior surgery; Surgery date: 1-6 months; Surgery type: Dialysis cath; Additional info: Dialysis cather pain TECHNIQUE: Imaging protocol: Radiologic exam of the chest. Views: 1 view. COMPARISON: CR XR chest 1V portable [id number] 04/28/2024 3:40 PM FINDINGS: Tubes, catheters and devices: Right chest dual lumen central venous catheter terminates over the area of the SVC. This appears unchanged compared to 04/28/2024. Lungs: No large focal consolidation. Pleural spaces: No large pleural effusion. No distinct pneumothorax. Heart/Mediastinum: Cardiomediastinal silhouette is midline and stable in size. Coronary artery stents noted. Bones/joints: No distinct acute osseous findings. XR/XR chest 1V portable [id number] IMPRESSION: Right chest dual lumen central venous catheter terminates over the area of the SVC. This appears unchanged compared to 04/28/2024.
--- NOTE | 2024-06-09 03:51 | PC.NURSE ---
Patient requesting pain medication. Dr. Briceno notified with no new orders.
--- NOTE | 2024-06-09 03:57 | W.ED.GENADLT ---
HPI - General Adult General: Chief complaint: General Medical Stated complaint: Diay. Port\Pain Time Seen by Provider: 06/09/24 03:38 History of Present Illness: 38-year-old female with history of end-stage renal disease on dialysis who presents emergency room with pain she thinks from her catheter. She says it hurts in her chest where the catheter is and hurts up into her neck. Catheter site appears clean and dry. Dressing is in place and when removed there is no signs of infection. No warmth. No redness. No drainage. Related Data Home Medications Medication Instructions Recorded Confirmed clonidine HCl 0.1 mg tablet See Rx Instructions .Route 11/27/23 05/13/24 .COMPLEX PRN Blood Pressure gabapentin 100 mg capsule 100 mg PO TID 12/27/23 05/13/24 insulin glargine 100 unit/mL (3 5 unit SUBCUT QPM 04/06/24 05/13/24 mL) subcutaneous pen (Lantus Solostar U-100 Insulin) escitalopram oxalate 20 mg tablet 20 mg PO DAILY 04/13/24 05/13/24 clopidogrel 75 mg tablet 75 mg PO DAILY 04/28/24 05/13/24 Previous Rx's Medication Instructions Recorded blood-glucose meter,continuous #1 ea 06/12/22 (Dexcom G6 Linen Aide) blood-glucose sensor (Dexcom G6 #3 ea 06/12/22 Sensor device) blood-glucose transmitter (Dexcom #1 ea 06/12/22 G6 Transmitter device) sevelamer carbonate 800 mg tablet 800 mg PO TID #90 tabs 09/16/23 aspirin 81 mg tablet,delayed 81 mg PO QAM 30 days #30 tabs 03/28/24 release atorvastatin 40 mg tablet 40 mg PO BEDTIME 30 days #30 tabs 03/28/24 insulin aspart U-100 100 unit/mL 5 unit (0.05 mL) SUBCUT TID #15 mL 04/11/24 (3 mL) subcutaneous pen (Novolog FlexPen U-100 Insulin aspart) AFO brace #1 ea 04/20/24 diabetic shoes with 3 inserts #1 ea 04/20/24 Allergies Allergy/AdvReac Type Severity Reaction Status Date / Time acetaminophen AdvReac Mild ADR-Gastrointestinal Verified 06/09/24 03:43 Upset Review of Systems Narrative: Constitutional symptoms: Negative except as documented in HPI. Skin symptoms: Negative except as documented in HPI. Eye symptoms: Negative except as documented in HPI. ENMT symptoms: Negative except as documented in HPI. Respiratory symptoms: Negative except as documented in HPI. Cardiovascular symptoms: Negative except as documented in HPI. Gastrointestinal symptoms: Negative except as documented in HPI. Genitourinary symptoms: Negative except as documented in HPI. Musculoskeletal symptoms: Negative except as documented in HPI. Neurologic symptoms: Negative except as documented in HPI. Psychiatric symptoms: Negative except as documented in HPI. Endocrine symptoms: Negative except as documented in HPI. PFSH ED PFSH: Medical History Headache Accelerated hypertension Uncontrolled type 1 diabetes mellitus ESRD (end stage renal disease) Dialysis complication Hypoglycemia Hemodialysis catheter dysfunction Hyperkalemia Colitis End stage renal disease on dialysis COPD (chronic obstructive pulmonary disease) Diabetes mellitus Transaminitis Intractable nausea and vomiting Hyperlipidemia HTN (hypertension) CHF (congestive heart failure), NYHA class III Pulmonary hypertension CAD (coronary artery disease) Neurogenic bladder COVID-19 Tobacco dependence Drug abuse Anemia Community acquired pneumonia Esophagitis Long-term insulin use History of pancreatitis Celiac disease Recurrent UTI Non-alcoholic fatty liver disease Arnold-Chiari malformation Diabetic gastroparesis -continue Reglan Diabetic neuropathy associated with type 1 diabetes mellitus Headache, common migraine, intractable, with status migrainosus Pleural effusion 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 History of lung surgery -s/p LLL lobectomy secondary to cavitary pneumonia (2017) History of endoscopy History of cholecystectomy Family History Grandfather Diabetes Mother CAD (coronary artery disease) Diabetes Heart disease Hypertension Brother Acute lymphoblastic leukemia (ALL) in child Grandmother Thyroid disease Denies family history of Colon cancer Ovarian cancer Prostate cancer Hyperlipidemia Breast cancer Uterine cancer Stroke Social History Smoking and tobacco/nicotine status: former use of tobacco/nicotine Quit status (tobacco/nicotine): has quit using Former quit date comment: She previously smoked <1/2 PPD, quit July 2023. Second hand smoke exposure: Yes Alcohol intake: never Substance/Drug Use: current Household members: children Housing: House Marital status: Single Current occupational status: unemployed Physical Exam Narrative: EXAM NARRATIVE: General: Alert, no acute distress. Skin: warm and dry, skin around the dialysis catheter appears clean dry. No redness. No warmth. Head: Normocephalic Neck: Trachea midline Eye: Extraocular movements are intact. Ears, nose, mouth and throat: Oral mucosa moist Respiratory: Respirations are non-labored Musculoskeletal: Normal ROM Neurological: Alert and oriented, No focal neurological deficit observed. Psychiatric: Cooperative, appropriate mood & affect. Course Vital Signs: Vital signs: Vital Signs Temperature 98.0 F 06/09/24 03:38 Pulse Rate 74 06/09/24 03:38 Respiratory Rate 16 06/09/24 03:38 Blood Pressure 112/68 06/09/24 03:38 Pulse Oximetry 97 06/09/24 03:38 Oxygen Delivery Me thod Room Air 06/09/24 03:38 MDM - General Adult Medical Decision Making Chest x-ray: Catheter appears to be appropriately in place. No infiltrate. This was reviewed and interpreted by myself the emergency room physician. I also reviewed the radiology report. Assessment and plan: Dialysis catheter site pain ?Patient received a A[place]el in the emergency room. If no findings to suggest issues with her catheter - Discharged home - Discussed plan with patient. Answered any questions. - Evaluation and treatment of this problem were appropriate in the emergency setting. XR interpretation done by ED provider, pending radiology final review Discharge Plan Discharge Patient Disposition: Home Clinical Impression: Vascular dialysis catheter in place Condition: Stable Prescriptions: No Action (DME) AFO brace See Rx Instructions .Route .MEDSUPPLY Qty: 1 0RF Rx Instructions: As directed to the shoe guys (DME) diabetic shoes with 3 inserts See Rx Instructions .Route .MEDSUPPLY Qty: 1 0RF Rx Instructions: As directed to the shoe guys (DME) Dexcom G6 Linen Aide Misc See Rx Instructions .Route Qty: 1 0RF Rx Instructions: As directed (DME) Dexcom G6 Sensor Device See Rx Instructions .Route Qty: 3 0RF Rx Instructions: As directed (DME) Dexcom G6 Transmitter Device See Rx Instructions .Route Qty: 1 0RF Rx Instructions: As directed atorvastatin 40 mg tablet 40 mg PO BEDTIME 30 Days Qty: 30 0RF aspirin 81 mg tablet,delayed release (DR/EC) 81 mg PO QAM 30 Days Qty: 30 0RF insulin glargine [Lantus Solostar U-100 Insulin] 100 unit/mL (3 mL) Insulin Pen 5 unit SUBCUT QPM insulin aspart U-100 [Novolog FlexPen U-100 Insulin] 100 unit/mL (3 mL) insulin pen 5 unit SUBCUT TID Qty: 15 0RF Rx Instructions: sliding scale escitalopram oxalate 20 mg Tablet 20 mg PO DAILY sevelamer carbonate 800 mg Tablet 800 mg PO TID Qty: 90 0RF clonidine HCl 0.1 mg tablet See Rx Instructions .ROUTE .COMPLEX PRN (Reason: Blood Pressure) Rx Instructions: TAKE 1 TABLET IF SYSTOLIC BLOOD PRESSURE IS GREATER THAN 160, REPEAT ONCE IF SYSTOLIC BLOOD PRESSURE IS STILL OVER 160 AFTER 1 HOUR. gabapentin 100 mg Capsule 100 mg PO TID clopidogrel 75 mg tablet 75 mg PO DAILY Discharge Orders: Discharge ED (Routine); Ordered 06/09/24 Ordered By: Dawna Briceno Referrals: Elizabeth Dougherty FNP [Primary Care Provider] - Patient Instructions: Opioid Safety, Pain Management Activity Restrictions/Additional Instructions: Thank you for choosing [facility] for your healthcare needs today. Please realize this is an emergency room and that we are providing you with a medical screening exam and this may not be complete and all inclusive of all the testing and or work up that you may need to determine your ailment or severity of your illness. You have been screened and evaluated and felt safe for discharge. Health conditions do change or evolve sometimes and as such it is important that you follow up with your Primary Doctor to be re checked, 3-5 days is a general good time frame for follow up. You are always welcome to return to the ED for re assessment if your symptoms are worsening or you have new concerns Coding Level of Care Code ED Wire Drawing Machine Operator for Reji Chandler
[2024-06-09] MEDS: oxyCODONE 5 mg IR Tab/Cap PO (04:43)
== END 2024-06-09 04:50 | disposition home or self-care (01) ==
PROVIDERS: Emergency Provider Emergency Medicine; PCP Nurse Practitioner Family
DX: Z03.89 Encounter for observation for other suspected diseases and conditions ruled out (principal); Z79.82 Long term (current) use of aspirin; Z79.01 Long term (current) use of anticoagulants; Z87.891 Personal history of nicotine dependence; E11.22 Type 2 diabetes mellitus with diabetic chronic kidney disease; I13.2 Hypertensive heart and chronic kidney disease with heart failure and with stage 5 chronic kidney disease, or end stage renal disease; I50.9 Heart failure, unspecified; N18.6 End stage renal disease; Z99.2 Dependence on renal dialysis; I25.10 Atherosclerotic heart disease of native coronary artery without angina pectoris; E78.5 Hyperlipidemia, unspecified
CPT/HCPCS: 71045; 99283

== ENCOUNTER 2024-06-19 23:30 | Emergency (ER) | payer MEDICARE, MEDICAID, SELFPAY ==
[2024-06-19 23:33] VITALS: BP 105/66; PULSE 74; RESP 18; TEMP 36.7; O2SAT 98; BMI 24.2
--- NOTE | 2024-06-20 00:55 | ED_ITS ---
HPI - General Adult General: Chief complaint: General Medical Stated complaint: cath for diaysis is bothering Time Seen by Provider: 06/20/24 00:54 History of Present Illness: Patient presents to the ER with right-sided chest pain she think her dialysis catheter is bothering her. He was last accessed on and it started bothering her earlier tonight. She is on for sure if she traumatized it or overuse the shoulder. But is tender to palpate all over the pectoralis muscle. There is no redness inflammation and irritation. Related Data Home Medications Medication Instructions Recorded Confirmed clonidine HCl 0.1 mg tablet See Rx Instructions .Route 11/27/23 05/13/24 .COMPLEX PRN Blood Pressure gabapentin 100 mg capsule 100 mg PO TID 12/27/23 05/13/24 insulin glargine 100 unit/mL (3 5 unit SUBCUT QPM 04/06/24 05/13/24 mL) subcutaneous pen (Lantus Solostar U-100 Insulin) escitalopram oxalate 20 mg tablet 20 mg PO DAILY 04/13/24 05/13/24 clopidogrel 75 mg tablet 75 mg PO DAILY 04/28/24 05/13/24 Previous Rx's Medication Instructions Recorded blood-glucose meter,continuous #1 ea 06/12/22 (Dexcom G6 Tail Puller) blood-glucose sensor (Dexcom G6 #3 ea 06/12/22 Sensor device) blood-glucose transmitter (Dexcom #1 ea 06/12/22 G6 Transmitter device) sevelamer carbonate 800 mg tablet 800 mg PO TID #90 tabs 09/16/23 aspirin 81 mg tablet,delayed 81 mg PO QAM 30 days #30 tabs 03/28/24 release atorvastatin 40 mg tablet 40 mg PO BEDTIME 30 days #30 tabs 03/28/24 insulin aspart U-100 100 unit/mL 5 unit (0.05 mL) SUBCUT TID #15 mL 04/11/24 (3 mL) subcutaneous pen (Novolog FlexPen U-100 Insulin aspart) AFO brace #1 ea 04/20/24 diabetic shoes with 3 inserts #1 ea 04/20/24 Allergies Allergy/AdvReac Type Severity Reaction Status Date / Time acetaminophen AdvReac Mild ADR-Gastrointestinal Verified 06/09/24 03:43 Upset Review of Systems General: Reports: 10 or more systems reviewed and unremarkable except in HPI and below PFSH ED PFSH: Medical History Headache Accelerated hypertension Uncontrolled type 1 diabetes mellitus ESRD (end stage renal disease) Dialysis complication Hypoglycemia Hemodialysis catheter dysfunction Hyperkalemia Colitis End stage renal disease on dialysis COPD (chronic obstructive pulmonary disease) Diabetes mellitus Transaminitis Intractable nausea and vomiting Hyperlipidemia HTN (hypertension) CHF (congestive heart failure), NYHA class III Pulmonary hypertension CAD (coronary artery disease) Neurogenic bladder COVID-19 Tobacco dependence Drug abuse Anemia Community acquired pneumonia Esophagitis Long-term insulin use History of pancreatitis Celiac disease Recurrent UTI Non-alcoholic fatty liver disease Arnold-Chiari malformation Diabetic gastroparesis -continue Reglan Diabetic neuropathy associated with type 1 diabetes mellitus Headache, common migraine, intractable, with status migrainosus Pleural effusion 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 History of lung surgery -s/p LLL lobectomy secondary to cavitary pneumonia (2017) History of endoscopy History of cholecystectomy Family History Grandfather Diabetes Mother CAD (coronary artery disease) Diabetes Heart disease Hypertension Brother Acute lymphoblastic leukemia (ALL) in child Grandmother Thyroid disease Denies family history of Colon cancer Ovarian cancer Prostate cancer Hyperlipidemia Breast cancer Uterine cancer Stroke Social History Smoking and tobacco/nicotine status: former use of tobacco/nicotine Quit status (tobacco/nicotine): has quit using Former quit date comment: She previously smoked <1/2 PPD, quit July 2023. Second hand smoke exposure: Yes Alcohol intake: never Substance/Drug Use: current Household members: children Housing: House Marital status: Single Current occupational status: unemployed Physical Exam Const: COMMON NORMALS: no acute distress, average body habitus, patient oriented x3, no limitations, healthy appearing, alert and well nourished HENMT: COMMON NORMALS: normocephalic, atraumatic, hearing grossly normal bilaterally, external ears normal, Normal external nose present and moist oral mucous membranes HEAD & SCALP: normocephalic and atraumatic NOSE: Normal external nose present EXTERNAL EAR: Yes external ears normal Neck/C-Spine: COMMON NORMALS: full ROM, no lymphadenopathy, supple, no meningeal signs, no JVD and Thyroid normal THYROID: Thyroid normal Chest: OTHER: Else catheter in right superior pectoralis region, no redness, streaking, fluctuance masses etc. diffuse tenderness to palpate over the entire pectoralis muscle region. Resp: COMMON NORMALS: normal respiratory effort, No retractions, No use of accessory muscles and clear to auscultation bilaterally AUSCULTATION: clear to auscultation bilaterally Cardio: COMMON NORMALS: no JVD, regular rate, regular rhythm, S1 normal heart sound present, S2 normal heart sound present, No gallops present (Cardio), No clicks present (Cardio), No murmurs present (Cardio) and No rub (Cardio) RA TE: regular rate RHYTHM: regular rhythm HEART SOUNDS: S1 normal heart sound present and S2 normal heart sound present GI: COMMON NORMALS: Normal to inspection, nondistended, normoactive bowel sounds present, Soft to palpation, non-tender, No hepatosplenomegaly present and no masses PALPATION: Yes Soft to palpation and Yes No hepatosplenomegaly present Neuro: COMMON NORMALS: patient oriented x3 SENSORIUM/ORIENTATION: Yes alert MENINGEAL SIGNS: Yes no meningeal signs Course Vital Signs: Vital signs: Vital Signs Temperature 98.1 F 06/19/24 23:33 Pulse Rate 74 06/19/24 23:33 Respiratory Rate 18 06/19/24 23:33 Blood Pressure 105/66 06/19/24 23:33 Pulse Oximetry 98 06/19/24 23:33 Oxygen Delivery Me thod Room Air 06/19/24 23:33 MDM - General Adult Medical Decision Making Physical exam was benign other than tenderness over the pectoralis muscle. Patient will be given 2 mg morphine 10 mg Decadron discharged. Medical Records I reviewed the patient's medical records. Lab Data I reviewed the patient's lab results. No radiology studies performed this visit Discharge Plan Discharge Patient Disposition: Home Clinical Impression: Musculoskeletal pain Condition: Stable Prescriptions: No Action (DME) AFO brace See Rx Instructions .Route .MEDSULY Qty: 1 0RF Rx Instructions: As directed to the shoe guys (DME) diabetic shoes with 3 inserts See Rx Instructions .Route .MEDSUPPLY Qty: 1 0RF Rx Instructions: As directed to the shovenkat [place]rieta (DME) Dexcom G6 Tail Puller Misc See Rx Instructions .Route Qty: 1 0RF Rx Instructions: As directed (DME) Dexcom G6 Sensor Device See Rx Instructions .Route Qty: 3 0RF Rx Instructions: As directed (DME) Dexcom G6 Transmitter Device See Rx Instructions .Route Qty: 1 0RF Rx Instructions: As directed atorvastatin 40 mg tablet 40 mg PO BEDTIME 30 Days Qty: 30 0RF aspirin 81 mg tablet,delayed release (DR/EC) 81 mg PO QAM 30 Days Qty: 30 0RF insulin glargine [Lantus Solostar U-100 Insulin] 100 unit/mL (3 mL) Insulin Pen 5 unit SUBCUT QPM insulin aspart U-100 [Novolog FlexPen U-100 Insulin] 100 unit/mL (3 mL) insulin pen 5 unit SUBCUT TID Qty: 15 0RF Rx Instructions: sliding scale escitalopram oxalate 20 mg Tablet 20 mg PO DAILY sevelamer carbonate 800 mg Tablet 800 mg PO TID Qty: 90 0RF clonidine HCl 0.1 mg tablet See Rx Instructions .ROUTE .COMPLEX PRN (Reason: Blood Pressure) Rx Instructions: TAKE 1 TABLET IF SYSTOLIC BLOOD PRESSURE IS GREATER THAN 160, REPEAT ONCE IF SYSTOLIC BLOOD PRESSURE IS STILL OVER 160 AFTER 1 HOUR. gabapentin 100 mg Capsule 100 mg PO TID clopidogrel 75 mg tablet 75 mg PO DAILY Discharge Orders: Discharge ED (Routine); Ordered 06/20/24 Ordered By: Bro James Referrals: Elizabeth Dougherty FNP [Primary Care Provider] - 1 week Patient Instructions: Musculoskeletal Pain (ED) Activity Restrictions/Additional Instructions: Thank you for choosing [facility] for your healthcare needs today. Please realize that you were seen in the emergency department and that we are providing you with an emergency medical screening exam and this may not be a com plete and all exclusive of all testing and/or medical workup we may need to determine your element or severity of your illness. It is very important that you follow-up as instructed with your primary care provider or specialist for the additional evaluation and to discuss your medical treatment plan. You may return to the emergency department should you have concerns or if your condition changes or worsens in any way. Coding Level of Care Code ED Doctor Of Nurse Anesthesia Practice for Reji Chandler
[2024-06-20] MEDS: dexamethasone 10 mg/mL INJ IM (01:42)
[2024-06-20] MEDS: morphine 4 mg/mL SDV 1 mL 2 MG IM (01:42)
[2024-06-20 02:01] VITALS: BP 136/78; PULSE 68; O2SAT 99
== END 2024-06-20 02:05 | disposition home or self-care (01) ==
PROVIDERS: Emergency Provider Emergency Medicine; PCP Nurse Practitioner Family
DX: M79.18 Myalgia, other site (principal); Z79.4 Long term (current) use of insulin; Z79.02 Long term (current) use of antithrombotics/antiplatelets; Z87.891 Personal history of nicotine dependence; E11.22 Type 2 diabetes mellitus with diabetic chronic kidney disease; I13.2 Hypertensive heart and chronic kidney disease with heart failure and with stage 5 chronic kidney disease, or end stage renal disease; I50.9 Heart failure, unspecified; N18.6 End stage renal disease; Z99.2 Dependence on renal dialysis; I25.10 Atherosclerotic heart disease of native coronary artery without angina pectoris
CPT/HCPCS: 96372; 99284; J1100; J2270

== ENCOUNTER → 2024-07-02 16:18 | Outpatient (BNVA) | payer MEDICARE, BC, SELFPAY | PROVIDERS: PCP Nurse Practitioner Family; Visit Provider Podiatrist Foot & Ankle Surgery | DX: B35.1 Tinea unguium (principal); G62.9 Polyneuropathy, unspecified; E10.49 Type 1 diabetes mellitus with other diabetic neurological complication; E10.42 Type 1 diabetes mellitus with diabetic polyneuropathy; Z79.4 Long term (current) use of insulin | CPT/HCPCS: 11721 ==

== ENCOUNTER 2024-08-22 21:43 | Emergency (ER) | payer MEDICARE, BC, MEDICAID, SELFPAY ==
[2024-08-22 21:51] VITALS: BP 137/74; PULSE 71; RESP 16; TEMP 36.7; O2SAT 97; BMI 25.4
--- NOTE | 2024-08-22 22:07 | XRR_ITS ---
PROCEDURE INFORMATION: Exam: XR Chest Exam date and time: 08/22/2024 10:14 PM Age: 39 years old Clinical indication: Chest wall pain; Prior surgery; Surgery date: 6+ months; Surgery type: Dialysis catheter; C/O pain to site of dialysis cath. ; Additional info: Chest pain, (at port site) TECHNIQUE: Imaging protocol: Radiologic exam of the chest. Views: 1 view. COMPARISON: CR XR chest 1V portable [id number] 06/09/2024 3:52 AM FINDINGS: Tubes, catheters and devices: Right-sided central venous catheter with tip projecting over expected location of cavoatrial junction. Lungs: Unremarkable. No consolidation. Pleural spaces: Unremarkable. No pleural effusion. No pneumothorax. Heart/Mediastinum: Cardiomediastinal silhouette is stable. Coronary artery stents are present. Bones/joints: Unremarkable. XR/XR chest 1V portable [id number] IMPRESSION: No acute intrathoracic findings.
--- NOTE | 2024-08-22 22:09 | ECG_ITS ---
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 Measurements Intervals [place] Rate: 68 P: 19 [place]: 170 QRS: -12 QRSD: 100 T: 32 QT: 421 QTc: 451 Interpretive Statements SINUS RHYTHM INFERIOR MYOCARDIAL INFARCTION , OF INDETERMINATE AGE [40+ ms Q WAVE AND/OR ST/T ABNORMALITY IN II/aVF] Compared to ECG 06/01/2024 20:49:08 No significant change Electronically Signed On 08-23-2024 12:09:26 RACING BOARD MARKER by Eleno Mora M.D. [email or web address]
--- NOTE | 2024-08-22 22:21 | PC.NURSE ---
this nurse assumed pt care from Devora CANELA at 2220.
--- NOTE | 2024-08-22 22:26 | W.ED.CHESTPA ---
HPI - Chest Pain General: Chief Complaint: Chest Pain Stated Complaint: sharp chest pain on right side where port is Time Seen by Provider: 08/22/24 21:56 History of Present Illness: 39-year-old female with a history of insulin-dependent diabetes and end-stage renal disease. She presents with right-sided chest discomfort, located around her port. She says that the dialysis port in her chest seems to hurt. The area around it seems to hurt as well. Mild shortness of breath. Pain with movement of her arm, or palpation of her chest. She has not had any fever. No vomiting. She successfully had dialysis today through the port. No leakage or redness. Related Data Home Medications ?Medication ?Instructions ?Recorded ?Confirmed clonidine HCl 0.1 mg tablet See Rx Instructions .Route 11/27/23 07/02/24 .COMPLEX PRN Blood Pressure gabapentin 100 mg capsule 100 mg PO TID 12/27/23 07/02/24 insulin glargine 100 unit/mL (3 5 unit SUBCUT QPM 04/06/24 07/02/24 mL) subcutaneous pen (Lantus Solostar U-100 Insulin) escitalopram oxalate 20 mg tablet 20 mg PO DAILY 04/13/24 07/02/24 clopidogrel 75 mg tablet 75 mg PO DAILY 04/28/24 07/02/24 Previous Rx's ?Medication ?Instructions ?Recorded blood-glucose meter,continuous #1 ea 06/12/22 (Dexcom G6 Trimmer Helper) blood-glucose sensor (Dexcom G6 #3 ea 06/12/22 Sensor device) blood-glucose transmitter (Dexcom #1 ea 06/12/22 G6 Transmitter device) sevelamer carbonate 800 mg tablet 800 mg PO TID #90 tabs 09/16/23 aspirin 81 mg tablet,delayed 81 mg PO QAM 30 days #30 tabs 03/28/24 release atorvastatin 40 mg tablet 40 mg PO BEDTIME 30 days #30 tabs 03/28/24 insulin aspart U-100 100 unit/mL 5 unit (0.05 mL) SUBCUT TID #15 mL 04/11/24 (3 mL) subcutaneous pen (Novolog FlexPen U-100 Insulin aspart) AFO brace #1 ea 04/20/24 diabetic shoes with 3 inserts #1 ea 04/20/24 Allergies Allergy/AdvReac Type Severity Reaction Status Date / Time acetaminophen AdvReac Mild ADR-Gastrointestinal Verified 07/02/24 16:06 Upset [facility] ED PFS: Medical History Headache Accelerated hypertension Uncontrolled type 1 diabetes mellitus ESRD (end stage renal disease) Dialysis complication Hypoglycemia Hemodialysis catheter dysfunction Hyperkalemia Colitis End stage renal disease on dialysis COPD (chronic obstructive pulmonary disease) Diabetes mellitus Transaminitis Intractable nausea and vomiting Hyperlipidemia HTN (hypertension) CHF (congestive heart failure), NYHA class III Pulmonary hypertension CAD (coronary artery disease) Neurogenic bladder COVID-19 Tobacco dependence Drug abuse Anemia Community acquired pneumonia Esophagitis Long-term insulin use History of pancreatitis Celiac disease Recurrent UTI Non-alcoholic fatty liver disease Arnold-Chiari malformation Diabetic gastroparesis -continue Reglan Diabetic neuropathy associated with type 1 diabetes mellitus Headache, common migraine, intractable, with status migrainosus Pleural effusion 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 History of lung surgery -s/p LLL lobectomy secondary to cavitary pneumonia (2017) History of endoscopy History of cholecystectomy Family History Grandfather Diabetes Mother CAD (coronary artery disease) Diabetes Heart disease Hypertension Brother Acute lymphoblastic leukemia (ALL) in child Grandmother Thyroid disease Denies family history of Colon cancer Ovarian cancer Prostate cancer Hyperlipidemia Breast cancer Uterine cancer Stroke Social History Smoking and tobacco/nicotine status: former use of tobacco/nicotine Quit status (tobacco/nicotine): has quit using Former quit date comment: She previously smoked <1/2 PPD, quit July 2023. Second hand smoke exposure: Yes Alcohol intake: never Substance/Drug Use: current Household members: children Housing: House Marital status: Single Current occupational status: unemployed Physical Exam Const: COMMON NORMALS: no acute distress GENERAL APPEARANCE: cooperative; not ill appearing and not frail appearing HENMT: COMMON NORMALS: normocephalic, atraumatic and Normal external nose present HEAD & SCALP: normocephalic and atraumatic FACE & SINUS: normal facial exam and face symmetric NOSE: Normal external nose present Eye: COMMON NORMALS: Equal, round and reactive pupils present and EOMs intact bilaterally PUPIL: Yes Equal, round and reactive pupils present Neck/C-Spine: GENERAL: Yes trachea midline Chest: CHEST: Yes Symmetrical chest wall rise OTHER: Inspection of the port reveals no surrounding cellulitis. No swelling. Tenderness to palpation is present. No leakage. No warmth. Resp: COMMON NORMALS: normal respiratory effort, No retractions, No use of accessory muscles and clear to auscultation bilaterally AUSCULTATION: clear to auscultation bilaterally Cardio: COMMON NORMALS: regular rate and regular rhythm RATE: regular rate RHYTHM: regular rhythm GI: COMMON NORMALS: Normal to inspection, nondistended, normoactive bowel sounds present Extremity: COMMON NORMALS: no pedal edema Neuro: JEET COMA SCALE: document GCS findings Jeet coma scale eye opening: Spontaneous [place] coma scale verbal response: Orientated [place] coma scale motor response: Obey commands [place] coma scale total score: 15 SENSORY EXAM: Yes extremities (intact) Psych: COMMON NORMALS: speech normal SPEECH: Yes normal speech Skin: COMMON NORMALS: no rashes or lesions noted GENERAL SKIN EXAM: no rashes or lesions noted Course Vital Signs: Vital signs: Vital Signs Temperature 98.0 F 08/22/24 21:51 Pulse Rate 84 08/23/24 00:20 Respiratory Rate 16 08/23/24 00:20 Blood Pressure 149/77 08/23/24 00:20 Pulse Oximetry 99 08/23/24 00:20 Oxygen Delivery Me thod Room Air 08/22/24 23:02 MDM - Chest Pain Medical Decision Making Tender area of the right side of the chest around her port. Patient is dialysis patient, and has an intolerance to Tylenol. She is given IM Dilaudid, awaiting laboratory. Her EKG shows a normal sinus rhythm with no acute ST wave changes. Her chest x-ray appears normal. The port is in a normal position, appears stable from prior. She will be allowed discharge. Lab Data 08/22/24 22:40 08/22/24 22:40 Radiology Impressions Chest X-Ray 08/22/24 22:07 IMPRESSION: No acute intrathoracic findings. Laboratory Results WBC 7.74 10^3/uL (3.29-11.43) 08/22/24 22:40 RBC 3.47 10^6/uL (3.85-5.65) L 08/22/24 22:40 Hgb 10.20 g/dL (11.27-16.99) L 08/22/24 22:40 Hct 31.9 % (36-47) L 08/22/24 22:40 MCV 91.9 fl (85-98) 08/22/24 22:40 MCH 29.4 pg (27-33) 08/22/24 22:40 MCHC 32.0 g/dL (30-55) 08/22/24 22:40 RDW 13.8 % (12.1-15.1) 08/22/24:40 Plt Count 180 10^3/cmm (157-399) 08/22/24 22:40 MPV 10.6 fL (7.4-10.4) H 08/22/24 22:40 Neut % (Auto) 60.1 % 08/22/24 22:40 Lymph % (Auto) 27.0 % 08/22/24 22:40 [place] % (Auto) 6.8 % 08/22/24 22:40 Eos % (Auto) 4.9 % 08/22/24 22:40 Baso % (Auto) 0.9 % 08/22/24 22:40 Neut # (Auto) 4.65 10^3/uL (1.8-7.7) 08/22/24 22:40 Lymph # (Auto) 2.1 10^3/uL (0.8-4.8) 08/22/24 22:40 [place] # (Auto) 0.5 10^3/uL (0.2-0.9) 08/22/24 22:40 Eos # (Auto) 0.4 10^3/uL (0.0-0.8) 08/22/24 22:40 Baso # (Auto) 0.1 10^3/uL (0.0-0.1) 08/22/24 22:40 Nucleated RBC % (auto) 0 % 08/22/24:40 Nucleated RBCs # 0.0 /100WBC 08/22/24 22:40 Sodium 137 mmol/L (136-145) 08/22/24 22:40 Potassium 3.9 mmol/L (3.5-5.1) 08/22/24 22:40 Chloride 95 mmol/L (98-107) L 08/22/24 22:40 Carbon Dioxide 32 mmol/L (22-29) H 08/22/24 22:40 Anion Gap 13.9 (5-19) 08/22/24 22:40 BUN 8 mg/dL (6-20) 08/22/24 22:40 Creatinine 2.9 mg/dL (0.5-0.9) H 08/22/24 22:40 GFR Calculation 18.2 mL/min (90-130) L 08/22/24 22:40 Glucose 172 mg/dL (65-115) H 08/22/24 22:40 Calculated Osmolality 286 mOsm/kg (285-295) 08/22/24 22:40 Calcium 8.6 mg/dL (8.5-10.5) 08/22/24 22:40 Total Bilirubin 0.2 mg/dL (0.15-1.2) 08/22/24 22:40 AST 43 U/L (0-32) H 08/22/24 22:40 ALT 23 U/L (0-33) 08/22/24 22:40 Alkaline Phosphatase 154 U/L (35-105) H 08/22/24 22:40 Troponin T Baseline 267 ng/L (0-10) H* 08/22/24 22:40 Total Protein 7.6 g/dL (6.6-8.7) 08/22/24 22:40 Albumin 3.9 g/dL (3.5-5.2) 08/22/24 22:40 Globulin 3.7 g/dL (1.3-4.6) 08/22/24 22:40 All radiology interpretation(s) finalized by discharge Discharge Plan Discharge Patient Disposition: Home Clinical Impression: End stage renal disease on dialysis, Acute chest wall pain Clinical Impression: (Ruled Out): Atherosclerotic heart disease of [place] coronary artery with unstable angina pectoris Condition: Stable Prescriptions: No Action (DME) AFO brace See Rx Instructions .Route .MEDSUPPLY Qty: 1 0RF Rx Instructions: As directed to the shoe guys (DME) diabetic shoes with 3 inserts See Rx Instructions .Route .MEDSUPPLY Qty: 1 0RF Rx Instructions: As directed to the edelmira gurashmi (DME) Dexcom G6 Trimmer Helper Misc See Rx Instructions .Route Qty: 1 0RF Rx Instructions: As directed (DME) Dexcom G6 Sensor Device See Rx Instructions .Route Qty: 3 0RF Rx Instructions: As directed (DME) Dexcom G6 Transmitter Device See Rx Instructions .Route Qty: 1 0RF Rx Instructions: As directed atorvastatin 40 mg tablet 40 mg PO BEDTIME 30 Days Qty: 30 0RF aspirin 81 mg tablet,delayed release (DR/EC) 81 mg PO QAM 30 Days Qty: 30 0RF insulin glargine [Lantus Solostar U-100 Insulin] 100 unit/mL (3 mL) Insulin Pen 5 unit SUBCUT QPM insulin aspart U-100 [Novolog FlexPen U-100 Insulin] 100 unit/mL (3 mL) insulin pen 5 unit SUBCUT TID Qty: 15 0RF Rx Instructions: sliding scale escitalopram oxalate 20 mg Tablet 20 mg PO DAILY sevelamer carbonate 800 mg Tablet 800 mg PO TID Qty: 90 0RF clonidine HCl 0.1 mg tablet See Rx Instructions .ROUTE .COMPLEX PRN (Reason: Blood Pressure) Rx Instructions: TAKE 1 TABLET IF SYSTOLIC BLOOD PRESSURE IS GREATER THAN 160, REPEAT ONCE IF SYSTOLIC BLOOD PRESSURE IS STILL OVER 160 AFTER 1 HOUR. gabapentin 100 mg Capsule 100 mg PO TID clopidogrel 75 mg tablet 75 mg PO DAILY Discharge Orders: Discharge ED (Routine); Ordered 08/23/24 Ordered By: Jak Larose Referrals: Elizabeth Dougherty FNP [Primary Care Provider] - 1-3 days Patient Instructions: Chest Pain (ED), Opioid Safety, Pain Management Activity Restrictions/Additional Instructions: Pain is likely related to inflammation of your chest wall around your port. Your port does not appear infected, or to have any problems affecting its ability to be used. Return for fever, spreading swelling or redness, other concerning symptoms. Print Language: Mongolian Coding Level of Care Code ED Clam Grower for Reji Chandler
[2024-08-22] MEDS: ondansetron 4 MG Tablet PO (22:31)
[2024-08-22] MEDS: HYDROMORPHONE HCL 0.5 MG/0.5 ML INJ 1 MG IM (22:31)
[2024-08-22 22:50] LABS: Basophils # 0.1 10^3/uL (0.0-0.1); Basophils % 0.9 %; Eosinophils # 0.4 10^3/uL (0.0-0.8); Eosinophils % 4.9 %; Hematocrit 31.9 % (36-47); Lymphocytes # 2.1 10^3/uL (0.8-4.8); Mean Corpuscular Hemoglobin 29.4 pg (27-33); Mean Corpuscular Volume 91.9 fl (85-98); Mean Platelet Volume 10.6 fL (7.4-10.4); Monocytes # 0.5 10^3/uL (0.2-0.9); Monocytes % 6.8 %; Neutrophils # 4.65 10^3/uL (1.8-7.7); Neutrophils % 60.1 %; Nucleated Red Blood Cells % 0 %; Platelet Count 180 10^3/cmm (157-399); Red Blood Count 3.47 10^6/uL (3.85-5.65); Red Cell Distribution Width 13.8 % (12.1-15.1); White Blood Count 7.74 10^3/uL (3.29-11.43)
[2024-08-22 23:02] VITALS: BP 146/86; PULSE 69; RESP 16; O2SAT 98
[2024-08-22 23:14] LABS: Alanine Aminotransferase 23 U/L (0-33); Albumin Level 3.9 g/dL (3.5-5.2); Alkaline Phosphatase 154 U/L (35-105); Anion Gap 13.9 (5-19); Aspartate Amino Transferase 43 U/L (0-32); Blood Urea Nitrogen 8 mg/dL (6-20); Calcium 8.6 mg/dL (8.5-10.5); Carbon Dioxide 32 mmol/L (22-29); Chloride 95 mmol/L (98-107); Creatinine Clr Calc Pharmacy 21.1297; Globulin 3.7 g/dL (1.3-4.6); Glomerular Filtration Rate 18.2 mL/min (90-130); Glucose 172 mg/dL (65-115); Osmolality Calculated 286 mOsm/kg (285-295); Potassium 3.9 mmol/L (3.5-5.1); Sodium 137 mmol/L (136-145); Total Bilirubin 0.2 mg/dL (0.15-1.2); Total Protein 7.6 g/dL (6.6-8.7)
[2024-08-22 23:19] LABS: Troponin(5th) Baseline 267 ng/L (0-10)
--- NOTE | 2024-08-23 00:04 | ECG_ITS ---
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 Measurements Intervals [place] Rate: 64 P: 23 GA: 171 QRS: -13 QRSD: 110 T: 48 QT: 458 QTc: 476 Interpretive Statements SINUS RHYTHM WITH OCCASIONAL SUPRAVENTRICULAR PREMATURE COMPLEXES NONSPECIFIC ST & T-WAVE ABNORMALITY Compared to ECG 08/22/2024 22:29:41 T-wave abnormality now present Myocardial infarct finding no longer present Electronically Signed On 08-23-2024 12:43:12 AIRCREWMAN by Eleno Mora M.D. [email or web address]
[2024-08-23 00:20] VITALS: BP 149/77; PULSE 84; RESP 16; O2SAT 99
== END 2024-08-23 00:17 | disposition home or self-care (01) ==
PROVIDERS: Emergency Provider Emergency Medicine; PCP Nurse Practitioner Family
DX: R07.89 Other chest pain (principal); Z03.89 Encounter for observation for other suspected diseases and conditions ruled out; E11.22 Type 2 diabetes mellitus with diabetic chronic kidney disease; I13.2 Hypertensive heart and chronic kidney disease with heart failure and with stage 5 chronic kidney disease, or end stage renal disease; I50.9 Heart failure, unspecified; N18.6 End stage renal disease; Z99.2 Dependence on renal dialysis; J44.9 Chronic obstructive pulmonary disease, unspecified; I25.10 Atherosclerotic heart disease of native coronary artery without angina pectoris; E78.5 Hyperlipidemia, unspecified
CPT/HCPCS: 36415; 71045; 80053; 84484; 85025; 93005; 96372; 99285; J1171; Q0162

== ENCOUNTER 2024-08-23 20:53 | Emergency (ER) | payer MEDICARE, MEDICAID, SELFPAY ==
[2024-08-23 21:01] VITALS: BP 192/87; PULSE 73; RESP 19; TEMP 36.7; O2SAT 96; BMI 25.4
--- NOTE | 2024-08-23 21:04 | ECG_ITS ---
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
[2024-08-23 22:02] LABS: Basophils # 0.1 10^3/uL (0.0-0.1); Basophils % 0.7 %; Eosinophils # 0.3 10^3/uL (0.0-0.8); Eosinophils % 4.5 %; Hematocrit 32.1 % (36-47); Lymphocytes # 1.6 10^3/uL (0.8-4.8); Lymphocytes % 21.8 %; Mean Corpuscular HGB Conc 29.9 g/dL (30-55); Mean Corpuscular Hemoglobin 28.6 pg (27-33); Mean Corpuscular Volume 95.5 fl (85-98); Monocytes # 0.5 10^3/uL (0.2-0.9); Monocytes % 6.2 %; Neutrophils # 4.85 10^3/uL (1.8-7.7); Neutrophils % 66.5 %; Nucleated Red Blood Cells % 0 %; Platelet Count 150 10^3/cmm (157-399); Red Blood Count 3.36 10^6/uL (3.85-5.65); Red Cell Distribution Width 13.8 % (12.1-15.1); White Blood Count 7.29 10^3/uL (3.29-11.43)
[2024-08-23 22:07] VITALS: BP 171/88; PULSE 72; RESP 18; O2SAT 98
[2024-08-23 22:23] LABS: Anion Gap 14.7 (5-19); Blood Urea Nitrogen 17 mg/dL (6-20); Calcium 8.4 mg/dL (8.5-10.5); Carbon Dioxide 30 mmol/L (22-29); Chloride 97 mmol/L (98-107); Creatinine Clr Calc Pharmacy 13.0375; Glomerular Filtration Rate 10.4 mL/min (90-130); Glucose 160 mg/dL (65-115); Osmolality Calculated 289 mOsm/kg (285-295); Potassium 4.7 mmol/L (3.5-5.1); Sodium 137 mmol/L (136-145)
[2024-08-23 22:26] LABS: Troponin(5th) Baseline 241 ng/L (0-10)
[2024-08-23 22:47] VITALS: BP 171/88; PULSE 74; RESP 18; O2SAT 100
--- NOTE | 2024-08-23 23:00 | CTR_ITS ---
PROCEDURE INFORMATION: Exam: CT Chest Without Contrast; Diagnostic Exam date and time: 08/23/2024 11:26 PM Age: 39 years old Clinical indication: Chest wall pain; Prior surgery; Surgery date: 1-6 months; Surgery type: Dialysis cath feb 2024; C/O pain to site of dialysis cath. ; Additional info: Right cp around port TECHNIQUE: Imaging protocol: Diagnostic computed tomography of the chest without contrast. Radiation optimization: All CT scans at this facility use at least one of these dose optimization techniques: automated exposure control; mA and/or kV adjustment per patient size (includes targeted exams where dose is matched to clinical indication); or iterative reconstruction. COMPARISON: CT angio chest PE protcl [id number] 04/06/2024 2:20 PM RADIATION DOSE METRICS: Total DLP (mGy-cm): 338.79 FINDINGS: Tubes, catheters and devices: Right IJ dialysis catheter is again seen with the tip in the right atrium. Lungs: Stable apparent postoperative changes from left thoracotomy. Mild right basilar atelectasis. Pleural spaces: Decreased tiny left and new small right pleural effusions. Heart: Unremarkable. No cardiomegaly. No pericardial effusion. Coronary arteries: Coronary artery calcifications are present. Lymph nodes: New mild nonspecific bilateral axillary lymphadenopathy. Vasculature: Unremarkable. No aortic aneurysm. Gallbladder and biliary ducts: Status post cholecystectomy. No evidence of significant biliary obstruction. Bones/joints: Unremarkable. No acute fracture. Soft tissues: Indeterminate 10 mm mass in the right outer breast, posterior depth. CT/CT chest wo con [id number] IMPRESSION: 1. Decreased tiny left and new small right pleural effusions. 2. Mild right basilar atelectasis. 3. New mild nonspecific bilateral axillary lymphadenopathy. Correlate clinically. 4. Indeterminate 10 mm mass in the right outer breast, posterior depth. Follow-up diagnostic mammogram is recommended. Finding and recommendation were discussed with Dr. Larose on 08/24/2024 at 0011 hours.
--- NOTE | 2024-08-23 23:14 | ECG_ITS ---
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
[2024-08-23] MEDS: ondansetron 2 mg/ML SDV 2 mL 4 MG IM (23:22)
--- NOTE | 2024-08-23 23:37 | W.ED.CHESTPA ---
HPI - Chest Pain General: Chief Complaint: Chest Pain Stated Complaint: chest pain Time Seen by Provider: 08/23/24 22:46 History of Present Illness: 39-year-old female with reproducible chest wall pain on the right side of her chest. She says it radiates into her right arm. No fever. She was seen for this last night. Workup was essentially negative. Related Data Home Medications ?Medication ?Instructions ?Recorded ?Confirmed clonidine HCl 0.1 mg tablet See Rx Instructions .Route 11/27/23 07/02/24 .COMPLEX PRN Blood Pressure gabapentin 100 mg capsule 100 mg PO TID 12/27/23 07/02/24 insulin glargine 100 unit/mL (3 5 unit SUBCUT QPM 04/06/24 07/02/24 mL) subcutaneous pen (Lantus Solostar U-100 Insulin) escitalopram oxalate 20 mg tablet 20 mg PO DAILY 04/13/24 07/02/24 clopidogrel 75 mg tablet 75 mg PO DAILY 04/28/24 07/02/24 Previous Rx's ?Medication ?Instructions ?Recorded blood-glucose meter,continuous #1 ea 06/12/22 (Dexcom G6 Security Police Officer) blood-glucose sensor (Dexcom G6 #3 ea 06/12/22 Sensor device) blood-glucose transmitter (Dexcom #1 ea 06/12/22 G6 Transmitter device) sevelamer carbonate 800 mg tablet 800 mg PO TID #90 tabs 09/16/23 aspirin 81 mg tablet,delayed 81 mg PO QAM 30 days #30 tabs 03/28/24 release atorvastatin 40 mg tablet 40 mg PO BEDTIME 30 days #30 tabs 03/28/24 insulin aspart U-100 100 unit/mL 5 unit (0.05 mL) SUBCUT TID #15 mL 04/11/24 (3 mL) subcutaneous pen (Novolog FlexPen U-100 Insulin aspart) AFO brace #1 ea 04/20/24 diabetic shoes with 3 inserts #1 ea 04/20/24 oxycodone 5 mg capsule 5 mg PO Q8H PRN pain #7 caps 08/24/24 Allergies Allergy/AdvReac Type Severity Reaction Status Date / Time acetaminophen AdvReac Mild ADR-Gastrointestinal Verified 08/23/24 21:04 Upset [facility] PFSH: Medical History Headache Accelerated hypertension Uncontrolled type 1 diabetes mellitus ESRD (end stage renal disease) Dialysis complication Hypoglycemia Hemodialysis catheter dysfunction Hyperkalemia Colitis End stage renal disease on dialysis COPD (chronic obstructive pulmonary disease) Diabetes mellitus Transaminitis Intractable nausea and vomiting Hyperlipidemia HTN (hypertension) CHF (congestive heart failure), NYHA class III Pulmonary hypertension CAD (coronary artery disease) Neurogenic bladder COVID-19 Tobacco dependence Drug abuse Anemia Community acquired pneumonia Esophagitis Long-term insulin use History of pancreatitis Celiac disease Recurrent UTI Non-alcoholic fatty liver disease Arnold-Chiari malformation Diabetic gastroparesis -continue Reglan Diabetic neuropathy associated with type 1 diabetes mellitus Headache, common migraine, intractable, with status migrainosus Pleural effusion 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 History of lung surgery -s/p LLL lobectomy secondary to cavitary pneumonia (2017) History of endoscopy History of cholecystectomy Family History Grandfather Diabetes Mother CAD (coronary artery disease) Diabetes Heart disease Hypertension Brother Acute lymphoblastic leukemia (ALL) in child Grandmother Thyroid disease Denies family history of Colon cancer Ovarian cancer Prostate cancer Hyperlipidemia Breast cancer Uterine cancer Stroke Social History Smoking and tobacco/nicotine status: former use of tobacco/nicotine Quit status (tobacco/nicotine): has quit using Former quit date comment: She previously smoked <1/2 PPD, quit July 2023. Second hand smoke exposure: Yes Alcohol intake: never Substance/Drug Use: current Household members: children Housing: House Marital status: Single Current occupational status: unemployed Physical Exam Const: COMMON NORMALS: no acute distress GENERAL APPEARANCE: cooperative; not ill appearing and not frail appearing HENMT: COMMON NORMALS: normocephalic, atraumatic and Normal external nose present HEAD & SCALP: normocephalic and atraumatic FACE & SINUS: normal facial exam and face symmetric NOSE: Normal external nose present Eye: COMMON NORMALS: Equal, round and reactive pupils present and EOMs intact bilaterally PUPIL: Yes Equal, round and reactive pupils present Neck/C-Spine: GENERAL: Yes trachea midline Chest: CHEST: Yes Symmetrical chest wall rise OTHER: Tenderness over dialysis catheter site. No redness. No leakage. Resp: COMMON NORMALS: normal respiratory effort, No retractions, No use of accessory muscles and clear to auscultation bilaterally AUSCULTATION: clear to auscultation bilaterally Cardio: COMMON NORMALS: regular rate and regular rhythm RATE: regular rate RHYTHM: regular rhythm GI: COMMON NORMALS: Normal to inspection, nondistended, normoactive bowel sounds present Extremity: COMMON NORMALS: no pedal edema Neuro: JEET COMA SCALE: document GCS findings Jeet coma scale eye opening: Spontaneous Jeet coma scale verbal response: Orientated [place] coma scale motor response: Obey commands [place] coma scale total score: 15 SENSORY EXAM: Yes extremities (intact) Psych: COMMON NORMALS: speech normal SPEECH: Yes normal speech Skin: COMMON NORMALS: no rashes or lesions noted GENERAL SKIN EXAM: no rashes or lesions noted Course Vital Signs: Vital signs: Vital Signs Temperature 98.1 F 08/23/24 21:01 Pulse Rate 74 08/23/24 22:47 Respiratory Rate 18 08/23/24 22:47 Blood Pressure 171/88 08/23/24 22:47 Pulse Oximetry 100 08/23/24 22:47 Oxygen Delivery Me thod Room Air 08/23/24 21:01 MDM - Chest Pain Medical Decision Making Patient is hypertensive, but that is not unusual for her. Other vitals are stable. She is afebrile. Hemoglobin is 9.6. Creatinine is 4.7. Platelet count is 150. Other laboratory not terribly remarkable. Her troponin baseline is the same as it was last night. CT of the chest is ordered showing some nonspecific bilateral axillary lymphadenopathy, and a potential small right outer breast mass for which follow-up mammogram as an outpatient is suggested. No hematoma or fluid collection or air surrounding her dialysis catheter. Lab Data 08/23/24 21:48 08/23/24 21:[address] 08/23/24 23:00 IMPRESSION: 1. Decreased tiny left and new small right pleural effusions. 2. Mild right basilar atelectasis. 3. New mild nonspecific bilateral axillary lymphadenopathy. Correlate clinically. 4. Indeterminate 10 mm mass in the right outer breast, posterior depth. Follow-up diagnostic mammogram is recommended. Finding and recommendation were discussed with Dr. Larose on 08/24/2024 at 0011 hours. Laboratory Results WBC 7.29 10^3/uL (3.29-11.43) 08/23/24 21:48 RBC 3.36 10^6/uL (3.85-5.65) L 08/23/24 21:48 Hgb 9.60 g/dL (11.27-16.99) L 08/23/24 21:48 Hct 32.1 % (36-47) L 08/23/24 21:48 MCV 95.5 fl (85-98) 08/23/24 21:48 MCH 28.6 pg (27-33) 08/23/24 21:48 MCHC 29.9 g/dL (30-55) L D 08/23/24 21:48 RDW 13.8 % (12.1-15.1) 08/23/24 21:48 Plt Count 150 10^3/cmm (157-399) L 08/23/24 21:48 MPV 11.0 fL (7.4-10.4) H 08/23/24 21:48 Neut % (Auto) 66.5 % 08/23/24 21:48 Lymph % (Auto) 21.8 % 08/23/24 21:48 [place] % (Auto) 6.2 % 08/23/24 21:48 Eos % (Auto) 4.5 % 08/23/24 21:48 Baso % (Auto) 0.7 % 08/23/24 21:48 Neut # (Auto) 4.85 10^3/uL (1.8-7.7) 08/23/24 21:48 Lymph # (Auto) 1.6 10^3/uL (0.8-4.8) 08/23/24 21:48 [place] # (Auto) 0.5 10^3/uL (0.2-0.9) 08/23/24 21:48 Eos # (Auto) 0.3 10^3/uL (0.0-0.8) 08/23/24 21:48 Baso # (Auto) 0.1 10^3/uL (0.0-0.1) 08/23/24 21:48 Nucleated RBC % (auto) 0 % 08/23/24 21:48 Nucleated RBCs # 0.0 /100WBC 08/23/24 21:48 Sodium 137 mmol/L (136-145) 08/23/24 21:48 Potassium 4.7 mmol/L (3.5-5.1) 08/23/24 21:48 Chloride 97 mmol/L (98-107) L 08/23/24 21:48 Carbon Dioxide 30 mmol/L (22-29) H 08/23/24 21:48 Anion Gap 14.7 (5-19) 08/23/24 21:48 BUN 17 mg/dL (6-20) 08/23/24 21:48 Creatinine 4.7 mg/dL (0.5-0.9) H 08/23/24 21:48 GFR Calculation 10.4 mL/min (90-130) L 08/23/24 21:48 Glucose 160 mg/dL (65-115) H 08/23/24 21:48 Calculated Osmolality 289 mOsm/kg (285-295) 08/23/24 21:48 Calcium 8.4 mg/dL (8.5-10.5) L 08/23/24 21:48 Troponin T Baseline 241 ng/L (0-10) H* 08/23/24 21:48 All radiology interpretation(s) finalized by discharge Discharge Plan Discharge Patient Disposition: Home Clinical Impression: Acute chest wall pain Condition: Stable Prescriptions: New oxycodone 5 mg capsule 5 mg PO Q8H PRN (Reason: pain) Qty: 7 0RF No Action (DME) AFO brace See Rx Instructions .Route .MEDSUPPLY Qty: 1 0RF Rx Instructions: As directed to the shoe guys (DME) diabetic shoes with 3 inserts See Rx Instructions .Route .MEDSUPPLY Qty: 1 0RF Rx Instructions: As directed to the shoe guys (DME) Dexcom G6 Security Police Officer Misc See Rx Instructions .Route Qty: 1 0RF Rx Instructions: As directed (DME) Dexcom G6 Sensor Device See Rx Instructions .Route Qty: 3 0RF Rx Instructions: As directed (DME) Dexcom G6 Transmitter Device See Rx Instructions .Route Qty: 1 0RF Rx Instructions: As directed atorvastatin 40 mg tablet 40 mg PO BEDTIME 30 Days Qty: 30 0RF aspirin 81 mg tablet,delayed release (/EC) 81 mg PO QAM 30 Days Qty: 30 0RF insulin glargine [Lantus Solostar U-100 Insulin] 100 unit/mL (3 mL) Insulin Pen 5 unit SUBCUT QPM insulin aspart U-100 [Novolog FlexPen U-100 Insulin] 100 unit/mL (3 mL) insulin pen 5 unit SUBCUT TID Qty: 15 0RF Rx Instructions: sliding scale escitalopram oxalate 20 mg Tablet 20 mg PO DAILY sevelamer carbonate 800 mg Tablet 800 mg PO TID Qty: 90 0RF clonidine HCl 0.1 mg tablet See Rx Instructions .ROUTE .COMPLEX PRN (Reason: Blood Pressure) Rx Instructions: TAKE 1 TABLET IF SYSTOLIC BLOOD PRESSURE IS GREATER THAN 160, REPEAT ONCE IF SYSTOLIC BLOOD PRESSURE IS STILL OVER 160 AFTER 1 HOUR. gabapentin 100 mg Capsule 100 mg PO TID clopidogrel 75 mg tablet 75 mg PO DAILY Discharge Orders: Discharge ED (Routine); Ordered 08/24/24 Ordered By: Jak Larose Referrals: Elizabeth Dougherty FNP [Primary Care Provider] - Patient Instructions: Opioid Safety, Pain Management, Chest Wall Pain (ED) Activity Restrictions/Additional Instructions: Make sure you let your dialysis team know you are having pain around your dialysis catheter. Medication as directed. Use sparingly. Ice over the chest wall may help as well. A small soft tissue mass was seen in your right breast on CAT scan incidentally. Tell your doctor about this, as a mammogram has been suggested. Print Language: Greenlandic Coding Level of Care Code ED Lean Specialist for Reji Chandler
[2024-08-23] MEDS: HYDROmorphone 1 mg/mL INJ 1 mL IM (23:40)
[2024-08-24 01:00] VITALS: BP 183/84; PULSE 70; RESP 12; O2SAT 92
[2024-08-24 01:24] VITALS: PULSE 78; RESP 15; O2SAT 97
== END 2024-08-24 01:26 | disposition home or self-care (01) ==
PROVIDERS: Emergency Provider Emergency Medicine; PCP Nurse Practitioner Family
DX: R07.89 Other chest pain (principal); Z79.82 Long term (current) use of aspirin; Z79.4 Long term (current) use of insulin; Z79.02 Long term (current) use of antithrombotics/antiplatelets; Z87.891 Personal history of nicotine dependence; I25.10 Atherosclerotic heart disease of native coronary artery without angina pectoris; J44.9 Chronic obstructive pulmonary disease, unspecified; E11.22 Type 2 diabetes mellitus with diabetic chronic kidney disease; I13.2 Hypertensive heart and chronic kidney disease with heart failure and with stage 5 chronic kidney disease, or end stage renal disease; I50.9 Heart failure, unspecified; N18.6 End stage renal disease
CPT/HCPCS: 36415; 71250; 80048; 84484; 85025; 93005; 96372; 99285; J1171; J2405

== ENCOUNTER → 2024-09-03 16:29 | Outpatient (BNVA) | payer MEDICARE, MEDICAID, SELFPAY | PROVIDERS: PCP Nurse Practitioner Family; Visit Provider Podiatrist Foot & Ankle Surgery | DX: E10.42 Type 1 diabetes mellitus with diabetic polyneuropathy (principal); B35.1 Tinea unguium; G62.9 Polyneuropathy, unspecified; M79.89 Other specified soft tissue disorders; Z79.4 Long term (current) use of insulin; M79.672 Pain in left foot | CPT/HCPCS: 11721; 73630; 99213 ==

== ENCOUNTER 2024-09-05 14:43 | Emergency (ER) | payer MEDICARE, MEDICAID, SELFPAY ==
[2024-09-05 14:44] VITALS: BP 174/97; PULSE 76; RESP 20; TEMP 36.8; O2SAT 99
--- NOTE | 2024-09-05 14:49 | XRR_ITS ---
PROCEDURE INFORMATION: Exam: XR Chest Exam date and time: 09/05/2024 3:13 PM Age: 39 years old Clinical indication: Pain; Chest pressure; Prior surgery; Surgery date: 6+ months; Surgery type: Dialysis cath; Coronary stents; Ll lobectomy; Additional info: Chest pain TECHNIQUE: Imaging protocol: Radiologic exam of the chest. Views: 1 view. COMPARISON: CT chest con [id number] 08/23/2024 11:26 PM FINDINGS: Tubes, catheters and devices: Right-sided dual lumen central venous catheter with its distal tip in the right atrium. Lungs: Right lung base opacity likely reflecting an area of atelectasis and/or scarring. No lobar consolidation. Pleural spaces: Unremarkable. Trace left-sided pleural effusion. No pneumothorax. Heart/Mediastinum: Coronary artery stents noted. Bones/joints: Unremarkable. XR/XR chest 1V portable [id number] IMPRESSION: As above.
--- NOTE | 2024-09-05 14:50 | ECG_ITS ---
[facility] Test Date: 2024-09-05 Pat Name: Donita Aguilar Department: Room: Gender: Female Concrete Pipe Maker: : 1985 Requested By: Dawna Nick Order Number: [id number] Faviola MD: JOSEFA TALLEY Measurements Intervals [place] Rate: 75 P: 72 MS: 156 QRS: -13 QRSD: 109 T: -11 QT: 418 QTc: 469 Interpretive Statements SINUS RHYTHM POSSIBLE LEFT ATRIAL ENLARGEMENT [-0.1mV P-WAVE IN V1/V2] INFERIOR MYOCARDIAL INFARCTION , OF INDETERMINATE AGE [40+ ms Q WAVE AND/OR ST/T ABNORMALITY IN II/aVF] Compared to ECG 08/23/2024 23:14:44 Myocardial infarct finding now present T-wave abnormality no longer present Electronically Signed On 09-07-2024 18:11:05 CDT by JOSEFA TALLEY [email or web address]
[2024-09-05 15:15] LABS: Basophils % 0.3 %; Eosinophils # 0.3 10^3/uL (0.0-0.8); Eosinophils % 5.3 %; Hematocrit 28.9 % (36-47); Lymphocytes # 1.3 10^3/uL (0.8-4.8); Lymphocytes % 19.7 %; Mean Corpuscular HGB Conc 32.2 g/dL (30-55); Mean Corpuscular Hemoglobin 29.6 pg (27-33); Mean Platelet Volume 10.7 fL (7.4-10.4); Monocytes # 0.3 10^3/uL (0.2-0.9); Monocytes % 4.8 %; Neutrophils # 4.51 10^3/uL (1.8-7.7); Neutrophils % 69.7 %; Nucleated Red Blood Cells % 0 %; Platelet Count 132 10^3/cmm (157-399); Red Blood Count 3.14 10^6/uL (3.85-5.65); Red Cell Distribution Width 14.8 % (12.1-15.1); White Blood Count 6.46 10^3/uL (3.29-11.43)
--- NOTE | 2024-09-05 15:25 | W.ED.CHESTPA ---
HPI - Chest Pain General: Chief Complaint: Chest Pain Stated Complaint: chest pain Time Seen by Provider: 09/05/24 14:47 History of Present Illness: 39-year-old female with a history of end-stage renal disease on dialysis, uncontrolled type 1 diabetes, COPD, hypertension, congestive heart failure, coronary artery disease who presents to the emergency room with chest pain. She says she was at dialysis and developed a left-sided chest pain. She did not receive her full dialysis treatment. EMS gave 324 of aspirin and 3 nitro that did nothing for her pain. No cough. No altered mental status. No abdominal pain. No vomiting. Related Data Home Medications ?Medication ?Instructions ?Recorded ?Confirmed clonidine HCl 0.1 mg tablet See Rx Instructions .Route 11/27/23 09/05/24 .COMPLEX PRN Blood Pressure gabapentin 100 mg capsule 100 mg PO TID 12/27/23 09/05/24 insulin glargine 100 unit/mL (3 5 unit SUBCUT QPM 04/06/24 09/05/24 mL) subcutaneous pen (Lantus Solostar U-100 Insulin) escitalopram oxalate 20 mg tablet 20 mg PO DAILY 04/13/24 09/05/24 clopidogrel 75 mg tablet 75 mg PO DAILY 04/28/24 09/05/24 bumetanide 1 mg tablet See Rx Instructions .Route .COMPLEX 09/05/24 09/05/24 carvedilol 3.125 mg tablet 3.125 mg PO BID 09/05/24 09/05/24 nifedipine 90 mg tablet,extended 90 mg PO BEDTIME 09/05/24 09/05/24 release Previous Rx's ?Medication ?Instructions ?Recorded blood-glucose meter,continuous #1 ea 06/12/22 (Dexcom G6 Weigher Bulker) blood-glucose sensor (Dexcom G6 #3 ea 06/12/22 Sensor device) blood-glucose transmitter (Dexcom #1 ea 06/12/22 G6 Transmitter device) sevelamer carbonate 800 mg tablet 800 mg PO TID #90 tabs 09/16/23 aspirin 81 mg tablet,delayed 81 mg PO QAM 30 days #30 tabs 03/28/24 release atorvastatin 40 mg tablet 40 mg PO BEDTIME 30 days #30 tabs 03/28/24 insulin aspart U-100 100 unit/mL 5 unit (0.05 mL) SUBCUT TID #15 mL 04/11/24 (3 mL) subcutaneous pen (Novolog FlexPen U-100 Insulin aspart) AFO brace #1 ea 04/20/24 diabetic shoes with 3 inserts #1 ea 04/20/24 Allergies Allergy/AdvReac Type Severity Reaction Status Date / Time acetaminophen AdvReac Mild ADR-Gastrointestinal Verified 09/03/24 16:10 Upset Review of Systems Narrative: Constitutional symptoms: Negative except as documented in HPI. Skin symptoms: Negative except as documented in HPI. Eye symptoms: Negative except as documented in HPI. ENMT symptoms: Negative except as documented in HPI. Respiratory symptoms: Negative except as documented in HPI. Cardiovascular symptoms: Negative except as documented in HPI. Gastrointestinal symptoms: Negative except as documented in HPI. Genitourinary symptoms: Negative except as documented in HPI. Musculoskeletal symptoms: Negative except as documented in HPI. Neurologic symptoms: Negative except as documented in HPI. Psychiatric symptoms: Negative except as documented in HPI. Endocrine symptoms: Negative except as documented in HPI. PFSH ED PFSH: Medical History Headache Accelerated hypertension Uncontrolled type 1 diabetes mellitus ESRD (end stage renal disease) Dialysis complication Hypoglycemia Hemodialysis catheter dysfunction Hyperkalemia Colitis End stage renal disease on dialysis COPD (chronic obstructive pulmonary disease) Diabetes mellitus Transaminitis Intractable nausea and vomiting Hyperlipidemia HTN (hypertension) CHF (congestive heart failure), NYHA class III Pulmonary hypertension CAD (coronary artery disease) Neurogenic bladder COVID-19 Tobacco dependence Drug abuse Anemia Community acquired pneumonia Esophagitis Long-term insulin use History of pancreatitis Celiac disease Recurrent UTI Non-alcoholic fatty liver disease Arnold-Chiari malformation Diabetic gastroparesis -continue Reglan Diabetic neuropathy associated with type 1 diabetes mellitus Headache, common migraine, intractable, with status migrainosus Pleural effusion 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 History of lung surgery -s/p LLL lobectomy secondary to cavitary pneumonia (2017) History of endoscopy History of cholecystectomy Family History Grandfather Diabetes Mother CAD (coronary artery disease) Diabetes Heart disease Hypertension Brother Acute lymphoblastic leukemia (ALL) in child Grandmother Thyroid disease Denies family history of Colon cancer Ovarian cancer Prostate cancer Hyperlipidemia Breast cancer Uterine cancer Stroke Social History Smoking and tobacco/nicotine status: former use of tobacco/nicotine Quit status (tobacco/nicotine): has quit using Former quit date comment: She previously smoked <1/2 PPD, quit July 2023. Second hand smoke exposure: Yes Alcohol intake: never Substance/Drug Use: current Household members: children Housing: House Marital status: Single Current occupational status: unemployed Physical Exam Narrative: EXAM NARRATIVE: General: Alert, no acute distress. Skin: Warm, dry. Head: Normocephalic, atraumatic. Neck: Supple, trachea midline. Eye: Extraocular movements are intact. Ears, nose, mouth and throat: mucosa moist. Cardiovascular: Regular, Normal peripheral perfusion. Respiratory: Lungs are clear to auscultation, respirations are non-labored, breath sounds are equal, Symmetrical chest wall expansion. Gastrointestinal: Soft, Nontender, Non distended Musculoskeletal: Normal ROM, no deformity. Neurological: Alert and oriented, No focal neurological deficit observed. Psychiatric: Cooperative, appropriate mood & affect. Course Vital Signs: Vital signs: Vital Signs Temperature 98.2 F 09/05/24 14:44 Pulse Rate 71 09/05/24 16:41 Respiratory Rate 16 09/05/24 16:41 Blood Pressure 189/95 09/05/24 15:39 Pulse Oximetry 98 09/05/24 16:41 Oxygen Delivery Me thod Room Air 09/05/24 16:41 MDM - Chest Pain Medical Decision Making Differential diagnosis for patient with chest pain includes but is not limited to and based on the above HPI, review of systems and physical exam: Pneumonia. unstable angina. angina. Acute coronary syndrome / IA. Pulmonary embolism. Costochondritis / musculoskeletal. Pleurisy. Pericarditis. Esophageal spasm. Pancreatis. Cholecystitis. Orders placed to evaluate differential diagnosis based on the above differential, HPI and physical exam EKG: Time 1451. Rate 75. Normal sinus rhythm, nonspecific ST changes, no ectopy, normal DE & QRS intervals, This was reviewed and interpreted by myself the ER physician at 1454 Chest x-ray: No acute process. Cardiomegaly, right-sided Port-A-Cath in place. This was reviewed and interpreted by myself the emergency room physician. I also reviewed the radiology report. Lab Review: Laboratory results were reviewed and interpreted by myself the emergency room physician. No leukocytosis. Stable anemia. BUN and creatinine are 17 and 2.8 which would be expected in this dialysis patient. Her potassium is okay at 3.7. Serial troponins are elevated but at her baseline at 250. No change from 1st-2nd troponin. I reviewed the patient's medical record. Chest x-ray: Some atelectasis. No consolidation. Catheter is in place on the right side. This was reviewed and interpreted by myself the emergency room physician. I also reviewed the radiology report. Reexamination: Patient remained stable. No increased work of breathing. No altered mental status. No focal motor deficits. Assessment and plan: Noncardiac chest pain End-stage renal disease on dialysis Chronic chest pain ? Had offered patient IV Tylenol which she declines. She says it causes stomach upset. I tried to explain to her that it would not because it is not gastric based but IV. She wants narcotics. I discussed that there is no indication for narcotic pain medications at this time. Suspect some pain seeking behaviors. - Discharged home - Discussed plan with patient. Answered any questions. - Evaluation and treatment of this problem were appropriate in the emergency setting. Lab Data 09/05/24 15:04 09/05/24 15:04 Radiology Impressions Chest X-Ray 09/05/24 14:49 IMPRESSION: As above. Laboratory Results WBC 6.46 10^3/uL (3.29-11.43) 09/05/24 15:04 RBC 3.14 10^6/uL (3.85-5.65) L 09/05/24 15:04 Hgb 9.30 g/dL (11.27-16.99) L 09/05/24 15:04 Hct 28.9 % (36-47) L 09/05/24 15:04 MCV 92.0 fl (85-98) 09/05/24 15:04 MCH 29.6 pg (27-33) 09/05/24 15: MCHC 32.2 g/dL (30-55) 09/05/24 15:04 RDW 14.8 % (12.1-15.1) 09/05/24 15:04 Plt Count 132 10^3/cmm (157-399) L 09/05/24 15:04 MPV 10.7 fL (7.4-10.4) H 09/05/24 15:04 Neut % (Auto) 69.7 % 09/05/24 15:04 Lymph % (Auto) 19.7 % 09/05/24 15:04 Mcduffie % (Auto) 4.8 % 09/05/24 15:04 Eos % (Auto) 5.3 % 09/05/24 15:04 Baso % (Auto) 0.3 % 09/05/24 15:04 Neut # (Auto) 4.51 10^3/uL (1.8-7.7) 09/05/24 15:04 Lymph # (Auto) 1.3 10^3/uL (0.8-4.8) 09/05/24 15:04 Mcduffie # (Auto) 0.3 10^3/uL (0.2-0.9) 09/05/24 15:04 Eos # (Auto) 0.3 10^3/uL (0.0-0.8) 09/05/24 15:04 Baso # (Auto) 0.0 10^3/uL (0.0-0.1) 09/05/24 15:04 Nucleated RBC % (auto) 0 % 09/05/24 15:04 Nucleated RBCs # 0.0 /100WBC 09/05/24 15:04 Sodium 135 mmol/L (136-145) L 09/05/24 15:04 Potassium 3.7 mmol/L (3.5-5.1) 09/05/24 15:04 Chloride 96 mmol/L (98-107) L 09/05/24 15:04 Carbon Dioxide 26 mmol/L (22-29) 09/05/24 15:04 Anion Gap 16.7 (5-19) 09/05/24 15:04 BUN 17 mg/dL (6-20) 09/05/24 15:04 Creatinine 2.8 mg/dL (0.5-0.9) H 09/05/24 15:04 GFR Calculation 18.9 mL/min (90-130) L 09/05/24 15:04 Glucose 141 mg/dL (65-115) H 09/05/24 15:04 POC Glucose 145 mg/dL (70-110) H 09/05/24 15:24 Calculated Osmolality 284 mOsm/kg (285-295) L 09/05/24 15:04 Calcium 8.2 mg/dL (8.5-10.5) L 09/05/24 15:04 Total Bilirubin 0.4 mg/dL (0.15-1.2) 09/05/24 15:04 AST 24 U/L (0-32) 09/05/24 15:04 ALT 16 U/L (0-33) 09/05/24 15:04 Alkaline Phosphatase 126 U/L (35-105) H 09/05/24 15:04 Troponin T Baseline 252 ng/L (0-10) H* 09/05/24 15:04 Troponin T 120 Minute 254.7 ng/L (0-10) H 09/05/24 17:44 Delta Troponin T 2.7 ABS# (0-10) 09/05/24 17:44 Total Protein 7.6 g/dL (6.6-8.7) 09/05/24 15:04 Albumin 3.4 g/dL (3.5-5.2) L 09/05/24 15:04 Globulin 4.2 g/dL (1.3-4.6) 09/05/24 15:04 All radiology interpretation(s) finalized by discharge Discharge Plan Discharge Patient Disposition: Home Clinical Impression: Non-cardiac chest pain, End stage renal disease on dialysis Condition: Stable Prescriptions: No Action (DME) AFO brace See Rx Instructions .Route .MEDSUPPLY Qty: 1 0RF Rx Instructions: As directed to the shoe guys [place] diabetic shoes with 3 inserts See Rx Instructions .Route .MEDSUPPLY Qty: 1 0RF Rx Instructions: As directed to the shoe guys [place] Dexcom G6 Weigher Bulker Misc See Rx Instructions .Route Qty: 1 0RF Rx Instructions: As directed (DME) Dexcom G6 Sensor Device See Rx Instructions .Route Qty: 3 0RF Rx Instructions: As directed ([facility] Dexcom G6 Transmitter Device See Rx Instructions .Route Qty: 1 0RF Rx Instructions: As directed atorvastatin 40 mg tablet 40 mg PO BEDTIME 30 Days Qty: 30 0RF aspirin 81 mg tablet,delayed release (DR/EC) 81 mg PO QAM 30 Days Qty: 30 0RF insulin glargine [Lantus Solostar U-100 Insulin] 100 unit/mL (3 mL) Insulin Pen 5 unit SUBCUT QPM insulin aspart U-100 [Novolog FlexPen U-100 Insulin] 100 unit/mL (3 mL) insulin pen 5 unit SUBCUT TID Qty: 15 0RF Rx Instructions: sliding scale escitalopram oxalate 20 mg Tablet 20 mg PO DAILY sevelamer carbonate 800 mg Tablet 800 mg PO TID Qty: 90 0RF clonidine HCl 0.1 mg tablet See Rx Instructions .ROUTE .COMPLEX PRN (Reason: Blood Pressure) Rx Instructions: TAKE 1 TABLET IF SYSTOLIC BLOOD PRESSURE IS GREATER THAN 160, REPEAT ONCE IF SYSTOLIC BLOOD PRESSURE IS STILL OVER 160 AFTER 1 HOUR. gabapentin 100 mg Capsule 100 mg PO TID clopidogrel 75 mg tablet 75 mg PO DAILY nifedipine 90 mg tablet extended release 90 mg PO BEDTIME carvedilol 3.125 mg tablet 3.125 mg PO BID bumetanide 1 mg tablet See Rx Instructions .ROUTE .COMPLEX Rx Instructions: TAKE 1 TABLET BY MOUTH ONCE DAILY ON NON-DIALYSIS DAYS Discharge Orders: Discharge ED (Routine); Ordered 09/05/24 Ordered By: Dawna Briceno Referrals: Elizabeth Dougherty FNP [Primary Care Provider] - Discharge Diet: Usual diet Discharge Activity: Increase activity as tolerated Patient Instructions: Noncardiac Chest Pain (ED), Opioid Safety, Pain Management Activity Restrictions/Additional Instructions: Thank you for choosing [facility] for your healthcare needs today. Please realize this is an emergency room and that we are providing you with a medical screening exam and this may not be complete and all inclusive of all the testing and or work up that you may need to determine your ailment or severity of your illness. You have been screened and evaluated and felt safe for discharge. Health conditions do change or evolve sometimes and as such it is important that you follow up with your Primary Doctor to be re checked, 3-5 days is a general good time frame for follow up. You are always welcome to return to the ED for re assessment if your symptoms are worsening or you have new concerns Print Language: Bhutanese Coding Level of Care Code ED Head Lineman for Reji Chandler
[2024-09-05 15:27] LABS: Glucose Point of Care 145 mg/dL (70-110)
[2024-09-05 15:39] VITALS: BP 189/95; PULSE 75; O2SAT 94
[2024-09-05 15:45] LABS: Troponin(5th) Baseline 252 ng/L (0-10)
[2024-09-05 16:02] LABS: Albumin Level 3.4 g/dL (3.5-5.2); Alkaline Phosphatase 126 U/L (35-105); Anion Gap 16.7 (5-19); Blood Urea Nitrogen 17 mg/dL (6-20); Calcium 8.2 mg/dL (8.5-10.5); Carbon Dioxide 26 mmol/L (22-29); Chloride 96 mmol/L (98-107); Creatinine Clr Calc Pharmacy 21.8844; Globulin 4.2 g/dL (1.3-4.6); Glomerular Filtration Rate 18.9 mL/min (90-130); Glucose 141 mg/dL (65-115); Osmolality Calculated 284 mOsm/kg (285-295); Potassium 3.7 mmol/L (3.5-5.1); Sodium 135 mmol/L (136-145); Total Bilirubin 0.4 mg/dL (0.15-1.2); Total Protein 7.6 g/dL (6.6-8.7)
[2024-09-05 16:03] LABS: Alanine Aminotransferase 16 U/L (0-33); Aspartate Amino Transferase 24 U/L (0-32)
[2024-09-05 16:41] VITALS: PULSE 71; RESP 16; O2SAT 98
[2024-09-05 18:13] LABS: Troponin 5 2HR Delta 2.7 ABS# (0-10)
[2024-09-05 18:14] LABS: Troponin 5 2HR 254.7 ng/L (0-10)
[2024-09-05 18:49] VITALS: BP 194/66; PULSE 69; RESP 16; O2SAT 98
== END 2024-09-05 18:50 | disposition home or self-care (01) ==
PROVIDERS: Emergency Provider Emergency Medicine; PCP Nurse Practitioner Family
DX: R07.89 Other chest pain (principal); E10.22 Type 1 diabetes mellitus with diabetic chronic kidney disease; I13.2 Hypertensive heart and chronic kidney disease with heart failure and with stage 5 chronic kidney disease, or end stage renal disease; I50.9 Heart failure, unspecified; N18.6 End stage renal disease; Z99.2 Dependence on renal dialysis; I25.10 Atherosclerotic heart disease of native coronary artery without angina pectoris; J44.9 Chronic obstructive pulmonary disease, unspecified
CPT/HCPCS: 36416; 71045; 80053; 82962; 84484; 85025; 93005; 99285; J0131

== ENCOUNTER 2024-09-07 03:06 | Inpatient (IN) | payer MEDICARE, MEDICAID, SELFPAY ==
[2024-09-07] VITALS (19 sets, daily range): BP systolic 97–201; BP diastolic 40–106; PULSE 12–75; RESP 9–76; TEMP 36.6–37; O2SAT 93–100; BMI 26.4
--- NOTE | 2024-09-07 03:30 | XRR_ITS ---
PROCEDURE INFORMATION: Exam: XR Chest Exam date and time: 09/07/2024 3:39 AM Age: 39 years old Clinical indication: Chest pressure and chest wall pain; Additional info: Chest pain TECHNIQUE: Imaging protocol: Radiologic exam of the chest. Views: 1 view. COMPARISON: CR (CHEST, ) 09/05/2024 3:13 PM FINDINGS: Tubes, catheters and devices: A dialysis catheter is placed via the right internal jugular vein with its tip at the level of the right atrium. Lungs: There increased interstitial opacities present in lower mode thoraces bilaterally, findings could represent mild pulmonary edema. Pleural spaces: Unremarkable. No pleural effusion. No pneumothorax. Heart/Mediastinum: Unremarkable. No cardiomegaly. Bones/joints: Unremarkable. XR/XR chest 1V portable [id number] IMPRESSION: Increased interstitial opacities in the lower hemithoraces may represent mild pulmonary edema.
--- NOTE | 2024-09-07 03:30 | ECG_ITS ---
[employer] Test Date: 2024-09-07 Pat Name: Donita Aguilar Department: Room: Gender: Female Quality Assurance Practice Manager: : [id number] Requested By: Abimael Thompson Order Number: [id number] Reading MD: JOSEFA TALLEY Measurements Intervals Aroda Rate: 68 P: 50 IN: 184 QRS: -13 QRSD: 109 T: 30 QT: 455 QTc: 486 Interpretive Statements SINUS RHYTHM NONSPECIFIC T-WAVE ABNORMALITY PROLONGED QT INTERVAL Compared to ECG 09/05/2024 14:51:09 T-wave abnormality now present Prolonged QT interval now present Myocardial infarct finding no longer present Electronically Signed On 09-07-2024 18:07:44 CDT by JOSEFA TALLEY [email or web address]
--- NOTE | 2024-09-07 04:02 | W.ED.CHESTPA ---
HPI - Chest Pain General: Chief Complaint: Chest Pain Stated Complaint: Chest Pains into Jaw Time Seen by Provider: 09/07/24 03:34 History of Present Illness: 39-year-old female with a history of coronary artery disease and end-stage renal disease and with concerns of substernal chest pain that awoke her from sleep earlier tonight. Patient reports she has had the symptoms multiple times in the past. Notes no palliative or provocative factors. No associated vomiting or diaphoresis. The patient has been taking her medications as directed. She was just seen here several days ago for similar type of symptoms. No recent fever or infection. No skin rash. No abdominal pain. Denies any other significant symptoms. Related Data Home Medications ?Medication ?Instructions ?Recorded ?Confirmed clonidine HCl 0.1 mg tablet See Rx Instructions .Route 11/27/23 09/05/24 .COMPLEX PRN Blood Pressure gabapentin 100 mg capsule 100 mg PO TID 12/27/23 09/05/24 insulin glargine 100 unit/mL (3 5 unit SUBCUT QPM 04/06/24 09/05/24 mL) subcutaneous pen (Lantus Solostar U-100 Insulin) escitalopram oxalate 20 mg tablet 20 mg PO DAILY 04/13/24 09/05/24 clopidogrel 75 mg tablet 75 mg PO DAILY 04/28/24 09/05/24 bumetanide 1 mg tablet See Rx Instructions .Route .COMPLEX 09/05/24 09/05/24 carvedilol 3.125 mg tablet 3.125 mg PO BID 09/05/24 09/05/24 nifedipine 90 mg tablet,extended 90 mg PO BEDTIME 09/05/24 09/05/24 release Previous Rx's ?Medication ?Instructions ?Recorded blood-glucose meter,continuous #1 ea 06/12/22 (Dexcom G6 Cold Strip Roller) blood-glucose sensor (Dexcom G6 #3 ea 06/12/22 Sensor device) blood-glucose transmitter (Dexcom #1 ea 06/12/22 G6 Transmitter device) sevelamer carbonate 800 mg tablet 800 mg PO TID #90 tabs 09/16/23 aspirin 81 mg tablet,delayed 81 mg PO QAM 30 days #30 tabs 03/28/24 release atorvastatin 40 mg tablet 40 mg PO BEDTIME 30 days #30 tabs 03/28/24 insulin aspart U-100 100 unit/mL 5 unit (0.05 mL) SUBCUT TID #15 mL 04/11/24 (3 mL) subcutaneous pen (Novolog FlexPen U-100 Insulin aspart) AFO brace #1 ea 04/20/24 diabetic shoes with 3 inserts #1 ea 04/20/24 Allergies Allergy/AdvReac Type Severity Reaction Status Date / Time acetaminophen AdvReac Mild ADR-Gastrointestinal Verified 09/03/24 16:10 Upset PFSH ED PFSH: Medical History Headache Accelerated hypertension Uncontrolled type 1 diabetes mellitus ESRD (end stage renal disease) Dialysis complication Hypoglycemia Hemodialysis catheter dysfunction Hyperkalemia Colitis End stage renal disease on dialysis COPD (chronic obstructive pulmonary disease) Diabetes mellitus Transaminitis Intractable nausea and vomiting Hyperlipidemia HTN (hypertension) CHF (congestive heart failure), NYHA class III Pulmonary hypertension CAD (coronary artery disease) Neurogenic bladder COVID-19 Tobacco dependence Drug abuse Anemia Community acquired pneumonia Esophagitis Long-term insulin use History of pancreatitis Celiac disease Recurrent UTI Non-alcoholic fatty liver disease Arnold-Chiari malformation Diabetic gastroparesis -continue Reglan Diabetic neuropathy associated with type 1 diabetes mellitus Headache, common migraine, intractable, with status migrainosus Pleural effusion 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 History of lung surgery -s/p LLL lobectomy secondary to cavitary pneumonia (2017) History of endoscopy History of cholecystectomy Family History Grandfather Diabetes Mother CAD (coronary artery disease) Diabetes Heart disease Hypertension Brother Acute lymphoblastic leukemia (ALL) in child Grandmother Thyroid disease Denies family history of Colon cancer Ovarian cancer Prostate cancer Hyperlipidemia Breast cancer Uterine cancer Stroke Social History Smoking and tobacco/nicotine status: former use of tobacco/nicotine Quit status (tobacco/nicotine): has quit using Former quit date comment: She previously smoked <1/2 PPD, quit July 2023. Second hand smoke exposure: Yes Alcohol intake: never Substance/Drug Use: current Household members: children Housing: House Marital status: Single Current occupational status: unemployed Physical Exam Const: COMMON NORMALS: patient oriented x3 (Very anxious), alert and well nourished HENMT: COMMON NORMALS: normocephalic HEAD & SCALP: normocephalic Eye: COMMON NORMALS: Equal, round and reactive pupils present, EOMs intact bilaterally and conjunctivae normal CONJUNCTIVA: Yes conjunctivae normal PUPIL: Yes Equal, round and reactive pupils present Neck/C-Spine: COMMON NORMALS: full ROM, no lymphadenopathy, supple, no meningeal signs, no JVD and Thyroid normal THYROID: Thyroid normal Chest: COMMONS NORMALS: normal inspection of the chest and normal palpation of entire chest wall Resp: COMMON NORMALS: normal respiratory effort, No retractions, No use of accessory muscles, clear to auscultation bilaterally and percussion normal AUSCULTATION: clear to auscultation bilaterally PERCUSSION: percussion normal Cardio: COMMON NORMALS: no JVD GI: COMMON NORMALS: Normal to inspection, nondistended, normoactive bowel sounds present, Soft to palpation, non-tender, No hepatosplenomegaly present, no masses and no bruits PALPATION: Yes Soft to palpation and Yes No hepatosplenomegaly present : COMMON NORMALS: Yes no CVA tenderness BLADDER/KIDNEY EXAM: Yes no CVA tenderness Back/Pelvis: COMMON NORMALS: no CVA tenderness Extremity: COMMON NORMALS: normal to inspection, full ROM, capillary refill normal, no joint enlargement, no clubbing, cyanosis or edema, no calf tenderness and no pedal edema Neuro: COMMON NORMALS: patient oriented x3 (Very anxious) SENSORIUM/ORIENTATION: Yes alert MENINGEAL SIGNS: Yes no meningeal signs Skin: COMMON NORMALS: no rashes or lesions noted, turgor normal and no jaundice GENERAL SKIN EXAM: no rashes or lesions noted and turgor normal Course Vital Signs: Vital signs: Vital Signs Temperature 98.1 F 09/07/24 03:19 Pulse Rate 66 09/07/24 05:00 Respiratory Rate 18 09/07/24 05:00 Blood Pressure 117/58 09/07/24 05:00 Pulse Oximetry 93 09/07/24 05:00 Oxygen Delivery Me thod Room Air 09/07/24 03:19 MDM - Chest Pain Medical Decision Making 39-year-old female with chest discomfort and a very atypical description. Patient does have known coronary disease and risk factors will do a standard workup to rule out acute coronary syndrome or other life-threatening causes of pain. Patient's electrocardiogram did not have any overly concerning features such as ST elevation or significant ST depression. Her troponin came back mildly elevated around where her baseline usually is we Argun to do a second 2-hour troponin given the onset of her symptoms without's negative I think we can safely send her home she still has reproducible chest pain which would make it exceedingly unlikely that this is actually a significant because she says that she has an allergy to Tylenol and cannot take NSAIDs and is requesting something for pain I did explain to her that she does not have an indication to take opioid pain medication and she was rather upset at the fact that we did not prescribe any strong pain medication. I have recommended that she follow-up with her primary care physician. She did have some mild possible pulmonary edema on x-ray but her vital signs are reasonably stable I think she is reasonable for discharge and she does not have an emergent condition she was watched for multiple hours in the department with serial reexaminations. Lab Data 09/07/24 04:04 09/07/24 04:04 Radiology Impressions Chest X-Ray 09/07/24 03:30 IMPRESSION: Increased interstitial opacities in the lower hemithoraces may represent mild pulmonary edema. Laboratory Results WBC 7.13 10^3/uL (3.29-11.43) 09/07/24 04:04 RBC 3.01 10^6/uL (3.85-5.65) L 09/07/24 04:04 Hgb 8.90 g/dL (11.27-16.99) L 09/07/24 04:04 Hct 27.8 % (36-47) L 09/07/24 04:04 MCV 92.4 fl (85-98) 09/07/24 04:04 MCH 29.6 pg (27-33) 09/07/24 04:04 MCHC 32.0 g/dL (30-55) 09/07/24 04:04 RDW 14.8 % (12.1-15.1) 09/07/24 04:04 Plt Count 145 10^3/cmm (157-399) L 09/07/24 04:04 MPV 10.2 fL (7.4-10.4) 09/07/24 04:04 Neut % (Auto) 61.3 % 09/07/24 04:04 Lymph % (Auto) 25.1 % 09/07/24 04:04 Hernando % (Auto) 6.5 % 09/07/24 04:04 Eos % (Auto) 5.3 % 09/07/24 04:04 Baso % (Auto) 0.7 % 09/07/24 04:04 Neut # (Auto) 4.37 10^3/uL (1.8-7.7) 09/07/24 04:04 Lymph # (Auto) 1.8 10^3/uL (0.8-4.8) 09/07/24 04:04 Hernando # (Auto) 0.5 10^3/uL (0.2-0.9) 09/07/24 04:04 Eos # (Auto) 0.4 10^3/uL (0.0-0.8) 09/07/24 04:04 Baso # (Auto) 0.1 10^3/uL (0.0-0.1) 09/07/24 04:04 Nucleated RBC % (auto) 0 % 09/07/24 04:04 Nucleated RBCs # 0.0 /100WBC 09/07/24 04:04 Sodium 136 mmol/L (136-145) 09/07/24 04:04 Potassium 4.3 mmol/L (3.5-5.1) 09/07/24 04:04 Chloride 98 mmol/L (98-107) 09/07/24 04:04 Carbon Dioxide 25 mmol/L (22-29) 09/07/24 04:04 Anion Gap 17.3 (5-19) 09/07/24 04:04 BUN 32 mg/dL (6-20) H 09/07/24 04:04 Creatinine 5.1 mg/dL (0.5-0.9) H 09/07/24 04:04 GFR Calculation 9.5 mL/min (90-130) L 09/07/24 04:04 Glucose 175 mg/dL (65-115) H 09/07/24 04:04 Calculated Osmolality 293 mOsm/kg (285-295) 09/07/24 04:04 Calcium 8.1 mg/dL (8.5-10.5) L 09/07/24 04:04 Total Bilirubin 0.2 mg/dL (0.15-1.2) 09/07/24 04:04 AST 19 U/L (0-32) 09/07/24 04:04 ALT 15 U/L (0-33) 09/07/24 04:04 Alkaline Phosphatase 128 U/L (35-105) H 09/07/24 04:04 Troponin T Baseline 233 ng/L (0-10) H* 09/07/24 04:04 Troponin T 120 Minute 251.2 ng/L (0-10) H 09/07/24 05:20 Delta Troponin T 18.2 ABS# (0-10) H* 09/07/24 05:20 Total Protein 7.0 g/dL (6.6-8.7) 09/07/24 04:04 Albumin 3.5 g/dL (3.5-5.2) 09/07/24 04:04 Globulin 3.5 g/dL (1.3-4.6) 09/07/24 04:04 All radiology interpretation(s) finalized by discharge Discharge Plan Discharge Patient Disposition: Home Clinical Impression: Atypical chest pain, Costalchondritis Condition: Stable Prescriptions: No Action (DME) AFO brace See Rx Instructions .Route .MEDSUPPLY Qty: 1 0RF Rx Instructions: As directed to the shoe guys (DME) diabetic shoes with 3 inserts See Rx Instructions .Route .MEDSUPPLY Qty: 1 0RF Rx Instructions: As directed to the shoe guys (DME) Dexcom G6 Cold Strip Roller Misc See Rx Instructions .Route Qty: 1 0RF Rx Instructions: As directed (DME) Dexcom G6 Sensor Device See Rx Instructions .Route Qty: 3 0RF Rx Instructions: As directed (DME) Dexcom G6 Transmitter Device See Rx Instructions .Route Qty: 1 0RF Rx Instructions: As directed atorvastatin 40 mg tablet 40 mg PO BEDTIME 30 Days Qty: 30 0RF aspirin 81 mg tablet,delayed release (DR/EC) 81 mg PO QAM 30 Days Qty: 30 0RF insulin glargine [Lantus Solostar U-100 Insulin] 100 unit/mL (3 mL) Insulin Pen 5 unit SUBCUT QPM insulin aspart U-100 [Novolog FlexPen U-100 Insulin] 100 unit/mL (3 mL) insulin pen 5 unit SUBCUT TID Qty: 15 0RF Rx Instructions: sliding scale escitalopram oxalate 20 mg Tablet 20 mg PO DAILY sevelamer carbonate 800 mg Tablet 800 mg PO TID Qty: 90 0RF clonidine HCl 0.1 mg tablet See Rx Instructions .ROUTE .COMPLEX PRN (Reason: Blood Pressure) Rx Instructions: TAKE 1 TABLET IF SYSTOLIC BLOOD PRESSURE IS GREATER THAN 160, REPEAT ONCE IF SYSTOLIC BLOOD PRESSURE IS STILL OVER 160 AFTER 1 HOUR. gabapentin 100 mg Capsule 100 mg PO TID clopidogrel 75 mg tablet 75 mg PO DAILY nifedipine 90 mg tablet extended release 90 mg PO BEDTIME carvedilol 3.125 mg tablet 3.125 mg PO BID bumetanide 1 mg tablet See Rx Instructions .ROUTE .COMPLEX Rx Instructions: TAKE 1 TABLET BY MOUTH ONCE DAILY ON NON-DIALYSIS DAYS Discharge Orders: Discharge ED (Routine); Ordered 09/07/24 Ordered By: Abimael Thompson Referrals: Elizabeth Dougherty FNP [Primary Care Provider] - Discharge Diet: Cardiac and Diabetic Discharge Activity: Limit activity as instructed Patient Instructions: Opioid Safety, Pain Management Activity Restrictions/Additional Instructions: 1. Topical voltaren gel or other topical medications. 2. Call PCP in AM for follow up if symptoms persist. 3. Return for new or worsening symptoms. Print Language: Mongolian Coding Level of Care Code ED Fan Mail Clerk for Reji Chandler
[2024-09-07 04:12] LABS: Basophils # 0.1 10^3/uL (0.0-0.1); Basophils % 0.7 %; Eosinophils # 0.4 10^3/uL (0.0-0.8); Eosinophils % 5.3 %; Hematocrit 27.8 % (36-47); Lymphocytes # 1.8 10^3/uL (0.8-4.8); Lymphocytes % 25.1 %; Mean Corpuscular Hemoglobin 29.6 pg (27-33); Mean Corpuscular Volume 92.4 fl (85-98); Mean Platelet Volume 10.2 fL (7.4-10.4); Monocytes # 0.5 10^3/uL (0.2-0.9); Monocytes % 6.5 %; Neutrophils # 4.37 10^3/uL (1.8-7.7); Neutrophils % 61.3 %; Nucleated Red Blood Cells % 0 %; Platelet Count 145 10^3/cmm (157-399); Red Blood Count 3.01 10^6/uL (3.85-5.65); Red Cell Distribution Width 14.8 % (12.1-15.1); White Blood Count 7.13 10^3/uL (3.29-11.43)
[2024-09-07 04:31] LABS: Alanine Aminotransferase 15 U/L (0-33); Albumin Level 3.5 g/dL (3.5-5.2); Alkaline Phosphatase 128 U/L (35-105); Aspartate Amino Transferase 19 U/L (0-32); Blood Urea Nitrogen 32 mg/dL (6-20); Calcium 8.1 mg/dL (8.5-10.5); Carbon Dioxide 25 mmol/L (22-29); Chloride 98 mmol/L (98-107); Globulin 3.5 g/dL (1.3-4.6); Glomerular Filtration Rate 9.5 mL/min (90-130); Glucose 175 mg/dL (65-115); Osmolality Calculated 293 mOsm/kg (285-295); Sodium 136 mmol/L (136-145); Total Bilirubin 0.2 mg/dL (0.15-1.2)
[2024-09-07 04:37] LABS: Anion Gap 17.3 (5-19); Potassium 4.3 mmol/L (3.5-5.1); Troponin(5th) Baseline 233 ng/L (0-10)
--- NOTE | 2024-09-07 05:32 | ECG_ITS ---
Tripping Test Date: 2024-09-07 Pat Name: Donita Aguilar Department: Room: Gender: Female Applications Intern: : 1985 Requested By: Abimael Thompson Order Number: [id number] Reading MD: JOSEFA TALLEY Measurements Intervals [place] Rate: 68 P: 48 WI: 178 QRS: -7 QRSD: 102 T: 35 QT: 441 QTc: 472 Interpretive Statements SINUS RHYTHM WITH OCCASIONAL SUPRAVENTRICULAR PREMATURE COMPLEXES POSSIBLE LEFT ATRIAL ENLARGEMENT [-0.1mV P-WAVE IN V1/V2] INFERIOR MYOCARDIAL INFARCTION , OF INDETERMINATE AGE [40+ ms Q WAVE AND/OR ST/T ABNORMALITY IN II/aVF] Compared to ECG 09/07/2024 03:12:02 Myocardial infarct finding now present T-wave abnormality no longer present Prolonged QT interval no longer present Electronically Signed On 09-07-2024 18:15:18 CDT by JOSEFA TALLEY [email or web address]
[2024-09-07 05:46] LABS: Troponin 5 2HR 251.2 ng/L (0-10); Troponin 5 2HR Delta 18.2 ABS# (0-10)
[2024-09-07] MEDS: morphine 4 mg/mL SDV 1 mL 2 MG IVP ×3 (08:06→20:16)
[2024-09-07 08:09] LABS: Procalcitonin 0.17 ng/mL (0-0.5)
[2024-09-07] MEDS: heparin drip 25,000 UNIT/500 ML PREMIX 17 UNIT IV (08:09)
[2024-09-07] MEDS: heparin 5,000 unit/mL INJ 1 mL IVP (08:11)
--- NOTE | 2024-09-07 08:18 | PM.HP ---
Providers/Chief Complaint Primary Care Provider: SUZANNE Dias Chief Complaint: Chest Pains into Jaw History of Present Illness The patient reports experiencing chest pain that woke them from sleep and worsened on the way to the hospital. The pain radiated to the neck, jaw, and back and was described as a pressure rather than a stabbing sensation. The patient experienced difficulty breathing during the pain episodes, which worsened when sitting up or lying back, and with deep breaths. There was no associated cough, fever, chills, sore throat, sneezing, nausea, vomiting, or blood in the stool or urine. The patient has a history of coronary artery disease and had a stent placed in March 2024. The patient also reports chronic diarrhea without blood in the stool and reduced urine output. During a recent dialysis session, the patient experienced low blood pressure and chest pain, which was not relieved by nitroglycerin. The pain resolved by bedtime after being transported to the hospital. The patient takes nitroglycerin at home but did not use it during the recent episode. Blood pressure at home was 105/50. The patient has been doing well with blood pressure control since March, with no recent high readings. A chest X-ray showed changes in the lower lungs, possibly due to congestion or fluid overload. Troponin levels showed slight elevation, similar to previous levels. The patient takes aspirin and Plavix regularly and has not missed any doses. Review of Systems Const: Denies: fever(s), chills, body aches or malaise ENMT: Denies: throat pain Card: Reports: chest pain; Denies: edema, pre-syncope or dyspnea on exertion Resp: Denies: dyspnea, productive cough, change in phlegm color or hemoptysis GI: Reports: diarrhea (chronic); Denies: abdominal pain, nausea, vomiting, constipation, hematochezia or melena : Denies: flank pain, urinary frequency or hematuria Musc: Denies: back pain, joint swelling or joint redness Skin/Breast: Denies: rash or new lesions Neuro: Denies: headache(s) or confusion Medications/Allergies Home Medications ?Medication ?Instructions ?Recorded ?Confirmed ?Last Taken ?Type blood-glucose meter,continuous #1 ea 06/12/22 09/07/24 Unknown Rx (Dexcom G6 Fixture Fabricator Repairer) blood-glucose sensor (Dexcom G6 #3 ea 06/12/22 09/07/24 Unknown Rx Sensor device) blood-glucose transmitter (Dexcom #1 ea 06/12/22 09/07/24 Unknown Rx G6 Transmitter device) sevelamer carbonate 800 mg tablet 800 mg PO TID #90 tabs 09/16/23 09/07/24 09/06/24 Rx clonidine HCl 0.1 mg tablet See Rx Instructions .Route 11/27/23 09/07/24 Unknown History .COMPLEX PRN Blood Pressure gabapentin 100 mg capsule 100 mg PO TID 12/27/23 09/07/24 09/05/24 History aspirin 81 mg tablet,delayed 81 mg PO QAM 30 days #30 tabs 03/28/24 09/07/24 09/06/24 Rx release atorvastatin 40 mg tablet 40 mg PO BEDTIME 30 days #30 tabs 03/28/24 09/07/24 09/06/24 Rx insulin glargine 100 unit/mL (3 5 unit SUBCUT QPM 04/06/24 09/07/24 09/06/24 History mL) subcutaneous pen (Lantus Solostar U-100 Insulin) insulin aspart U-100 100 unit/mL 5 unit (0.05 mL) SUBCUT TID #15 mL 04/11/24 09/07/24 09/06/24 Rx (3 mL) subcutaneous pen (Novolog FlexPen U-100 Insulin aspart) AFO brace #1 ea 04/20/24 09/07/24 Unknown Rx diabetic shoes with 3 inserts #1 ea 04/20/24 09/07/24 Unknown Rx clopidogrel 75 mg tablet 75 mg PO DAILY 04/28/24 09/07/24 09/06/24 History bumetanide 1 mg tablet See Rx Instructions .Route .COMPLEX 09/05/24 09/07/24 09/06/24 History carvedilol 3.125 mg tablet 3.125 mg PO BID 09/05/24 09/07/24 09/06/24 History nifedipine 90 mg tablet,extended 90 mg PO BEDTIME 09/05/24 09/07/24 09/06/24 History release escitalopram oxalate 10 mg tablet 10 mg PO DAILY 09/07/24 09/07/24 09/06/24 History lisinopril 40 mg tablet 40 mg PO QAM 09/07/24 09/07/24 09/06/24 History Allergies Allergy/AdvReac Type Severity Reaction Status Date / Time acetaminophen AdvReac Mild ADR-Gastrointestinal Verified 09/03/24 16:10 Upset PFSH Acute PFSH: Medical History Headache Accelerated hypertension Uncontrolled type 1 diabetes mellitus ESRD (end stage renal disease) Dialysis complication Hypoglycemia Hemodialysis catheter dysfunction Hyperkalemia Colitis End stage renal disease on dialysis COPD (chronic obstructive pulmonary disease) Diabetes mellitus Transaminitis Intractable nausea and vomiting Hyperlipidemia HTN (hypertension) CHF (congestive heart failure), NYHA class III Pulmonary hypertension CAD (coronary artery disease) Neurogenic bladder COVID-19 Tobacco dependence Drug abuse Anemia Community acquired pneumonia Esophagitis Long-term insulin use History of pancreatitis Celiac disease Recurrent UTI Non-alcoholic fatty liver disease Arnold-Chiari malformation Diabetic gastroparesis -continue Reglan Diabetic neuropathy associated with type 1 diabetes mellitus Headache, common migraine, intractable, with status migrainosus Pleural effusion 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 History of lung surgery -s/p LLL lobectomy secondary to cavitary pneumonia (2016) History of endoscopy History of cholecystectomy Family History Grandfather Diabetes Mother CAD (coronary artery disease) Diabetes Heart disease Hypertension Brother Acute lymphoblastic leukemia (ALL) in child Grandmother Thyroid disease Denies family history of Colon cancer Ovarian cancer Prostate cancer Hyperlipidemia Breast cancer Uterine cancer Stroke Social History Smoking and tobacco/nicotine status: former use of tobacco/nicotine Quit status (tobacco/nicotine): has quit using Former quit date comment: She previously smoked <1/2 PPD, quit July 2023. Second hand smoke exposure: Yes Alcohol intake: never Substance/Drug Use: current Household members: children Housing: House Marital status: Single Current occupational status: unemployed Vitals/I&O/Wt Last Vital Signs Temp 98.1 F 09/07/24 03:19 Pulse 69 09/07/24 07:07 Resp 18 09/07/24 05:00 BP 97/48 09/07/24 07:07 Pulse Ox 99 09/07/24 07:07 O2 Del Method Room Air 09/07/24 07:01 Weight last 48 hrs Weight 61.235 kg Physical Exam Narrative: Accompanied by her mother. Const: COMMON NORMALS: patient oriented x3 and alert GENERAL APPEARANCE: cooperative ORIENTATION/CONSCIOUSNESS: Yes awake HENMT: COMMON NORMALS: oropharynx normal Neck/C-Spine: COMMON NORMALS: no JVD Chest: OTHER: Dialysis port right chest. Resp: COMMON NORMALS: normal respiratory effort and clear to auscultation bilaterally AUSCULTATION: clear to auscultation bilaterally Cardio: COMMON NORMALS: no JVD, regular rhythm, S1 normal heart sound present, S2 normal heart sound present and No murmurs present (Cardio) RHYTHM: regular rhythm HEART SOUNDS: S1 normal heart sound present and S2 normal heart sound present GI: COMMON NORMALS: Normal to inspection, nondistended, normoactive bowel sounds present, Soft to palpation and non-tender PALPATION: Yes Soft to palpation Extremity: COMMON NORMALS: no joint enlargement and no pedal edema NARRATIVE EXTREMITY EXAM: AV graft proximal left medial arm Neuro: COMMON NORMALS: patient oriented x3 and moves all extremities SENSORIUM/ORIENTATION: Yes alert Skin: COMMON NORMALS: no rashes or lesions noted GENERAL SKIN EXAM: no rashes or lesions noted Data 09/07/24 04:04 09/07/24 04:04 A&P Assessment and plan (1) Chest pain: The patient presents with chest pain that radiated to the neck, jaw, and back, associated with difficulty breathing. Possible unstable angina. She reports it was similar to how she was feeling during her last heart attack. The pain was not relieved by nitroglycerin during a recent dialysis session. Troponin levels showed slight elevation, similar to previous levels. A chest X-ray indicated possible lung congestion or fluid overload. Reviewed vitals, CBC, BMP, troponin. Reviewed chest x-ray, ER provider note, discussed with ER provider. Troponin baseline 233, 2-hour troponin 251. EKG on my interpretation with T wave flattening in 2 3 and aVF. Noted Q waves in 2 and 3. Pending official read. Complete troponin EKG series. She had a coronary angiography in March with stenting of RCA. She has been started on anticoagulation, monitor for risk of bleeding. Continue aspirin, Plavix, she states she has not missed any medications. Pending cardiology consultation. Monitor on telemetry with risk of arrhythmia. Chest x-ray with increased interstitial opacities in the lower hemithoraces, may represent mild pulmonary edema. Had incomplete dialysis on Saturday reportedly initially had soft blood pressure prior to dialysis and then had chest pain during dialysis. She reports recently her blood pressure has been running softer than in the past, at home blood pressure was 105/50. She has continued taking all her medications. She did not take nitroglycerin at home as she states lives 30 minutes away and was worried that trying things before coming to the hospital may delay her arrival. Plan Acute decompensated diastolic congestive heart failure. With congestive changes on chest x-ray, with orthopneic symptoms, without peripheral edema. Assessment for possible cardiac ischemia as above. She makes a small amount of urine. Continue bumetanide. Hold antihypertensives as she will likely need dialysis. Her last session of dialysis on Saturday was cut short initially she had soft blood pressure, subsequently had a episode of chest pain and anxiety. She normally takes 50 mg of Benadryl with dialysis, received initially only 25 Giurgius of blood pressure, later requested for the other 25 mg, which made her feel unwell. Chronic diarrhea: Reports having had loose stools for a long time, without blood, nonpainful. Without recent changes. Will benefit from follow-up with primary provider. HTN: Monitor blood pressures. Hold antihypertensives for now with soft blood pressure and had soft blood pressure prior to dialysis on Saturday. COPD: not in exacerbation. Breathing treatments as needed. DM: conitnue Lantus. Sliding scale insulin. POC glucose monitoring. Anemia: Hb slightly lower than usual, possible dilutional 2/2 to fluid overload. Repeat blood counts. Anxiety Other medical problems PDMP PDMP Reviewed: Not Reviewed Attestations Medical Necessity Statement*: Admission of over 2 midnights is anticipated for assessment and management of chest pain in a lady with underlying CAD, ESRD and CHF with decompensation. Diagnoses Chest pain R07.9
--- NOTE | 2024-09-07 08:30 | PM.CONSULT ---
Providers/Reason For Consult Consulting Physician/Specialty*: JOSEY Eugene MD/cardiology Reason for Consult*: Patient with chest pain and elevated troponin T/on hemodialysis Requesting Physician: Dr. Díaz/Dr. Vivas Attending Physician: Dr. Díaz Primary Care Provider: SUZANNE Dias History of Present Illness History of Present Illness Donita Aguilar is a 39 year old female with a history of atherosclerotic heart diseas, status post multiple PCI's, multiple other medical problems, is presenting with the recurrent episodes of prolonged chest pain. She was found to have an elevated troponin T. Cardiology consult is requested for further cardiac evaluation recommendations. This patient is known to have atherosclerotic heart disease and had multiple PCI's, a total of 7 stents in the past. In 2021, she presented with complaints of unstable angina and non-ST elevation myocardial infarction. Subsequent cardiac catheterization revealed chronic total occlusion of the right coronary artery with high-grade lesions in the left anterior descending artery and circumflex arteries. She was transferred to the [facility] for possible surgical intervention. Apparently she underwent PCI at that time at the [facility]. She had a several hospital admissions since then with complaints of chest pain. She had a total of 3 coronary angiogram last year-in August, November and March. She had restenosis in the LAD and circumflex artery, which were re intervened. In March of last year, she had PCI of the RCA lesion?. This patient is known to have high blood pressure, type 1 diabetes, dyslipidemia, end-stage renal disease, on hemodialysis since July of last year. She was seen in the emergency room last Saturday with chest pain. Apparently she tried having chest pain during the dialysis, chcf through. The initial cardiac workup at the emergency room was unremarkable except for the chronically elevated troponin T and some chronic EKG changes. She was sent home with no intervention. This morning, she woke up with chest pain. The pain was in the middle of the chest radiating across the chest, to the back, to the neck and also to the jaws. Pain was moderate to severe intensity. According the patient, the radiation of the pain to the jaws is somewhat new. She did not take any sublingual nitro, thinking that she might be getting a heart attack?. She had several episodes of pain since being in the emergency room. Finally the pain quit after getting the IV morphine. Currently at the time of my examination, patient is pain-free. She has no fever, chills or cough. She has a history of a COVID-19 pneumonia and? Lung abscess. She had a lobectomy for this. 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 Has been smoking 2 pack a day for more than 20 years which she quit in July of this year. No alcohol abuse or any other substance abuse. She has a strong family history for premature atherosclerotic heart disease. Review of Systems Narrative: CONSTITUTIONAL: No fever or chills. EYES: No blurring of vision or other visual disturbances lately. ENT: No hoarseness of voice, auditory disturbances or sore throat. CARDIOVASCULAR: As mentioned above. RESPIRATORY: As mentioned above GASTROINTESTINAL: History of chronic diarrhea and? Hematochezia GENITOURINARY: End-stage renal disease and on hemodialysis INTEGUMENTARY: No skin rashes or history of skin cancer. NEURO: No transient ischemic attacks or amaurosis. PSYCHIATRIC: No history of psychosis or major depression. HEMATOLOGIC: No bleeding disorders or significant anemia. ENDOCRINE: History of type 1 diabetes MUSCULOSKELETAL: No recent joint pain or swelling. ALLERGY/IMMUNOLOGY: As mentioned above. Medications/Allergies Home Medications ?Medication ?Instructions ?Recorded ?Confirmed ?Last Taken ?Type blood-glucose meter,continuous #1 ea 06/12/22 09/07/24 Unknown Rx (Dexcom G6 Advertising Layout Worker) blood-glucose sensor (Dexcom G6 #3 ea 06/12/22 09/07/24 Unknown Rx Sensor device) blood-glucose transmitter (Dexcom #1 ea 06/12/22 09/07/24 Unknown Rx G6 Transmitter device) sevelamer carbonate 800 mg tablet 800 mg PO TID #90 tabs 09/16/23 09/07/24 09/06/24 Rx clonidine HCl 0.1 mg tablet See Rx Instructions .Route 11/27/23 09/07/24 Unknown History .COMPLEX PRN Blood Pressure gabapentin 100 mg capsule 100 mg PO TID 12/27/23 09/07/24 09/05/24 History aspirin 81 mg tablet,delayed 81 mg PO QAM 30 days #30 tabs 03/28/24 09/07/24 09/06/24 Rx release atorvastatin 40 mg tablet 40 mg PO BEDTIME 30 days #30 tabs 03/28/24 09/07/24 09/06/24 Rx insulin glargine 100 unit/mL (3 5 unit SUBCUT QPM 04/06/24 09/07/24 09/06/24 History mL) subcutaneous pen (Lantus Solostar U-100 Insulin) insulin aspart U-100 100 unit/mL 5 unit (0.05 mL) SUBCUT TID #15 mL 04/11/24 09/07/24 09/06/24 Rx (3 mL) subcutaneous pen (Novolog FlexPen U-100 Insulin aspart) AFO brace #1 ea 04/20/24 09/07/24 Unknown Rx diabetic shoes with 3 inserts #1 ea 04/20/24 09/07/24 Unknown Rx clopidogrel 75 mg tablet 75 mg PO DAILY 04/28/24 09/07/24 09/06/24 History bumetanide 1 mg tablet See Rx Instructions .Route .COMPLEX 09/05/24 09/07/24 09/06/24 History carvedilol 3.125 mg tablet 3.125 mg PO BID 09/05/24 09/07/24 09/06/24 History nifedipine 90 mg tablet,extended 90 mg PO BEDTIME 09/05/24 09/07/24 09/06/24 History release escitalopram oxalate 10 mg tablet 10 mg PO DAILY 09/07/24 09/07/24 09/06/24 History lisinopril 40 mg tablet 40 mg PO QAM 09/07/24 09/07/24 09/06/24 History Allergies Allergy/AdvReac Type Severity Reaction Status Date / Time acetaminophen AdvReac Mild ADR-Gastrointestinal Verified 09/03/24 16:10 Upset Current Medications Generic Name Dose Route Start Last Admin Trade Name Freq PRN Reason Stop Dose Admin Heparin Sodium/Sodium Chloride 25,000 unit in 500 mls @ 0 mls/hr 09/07/24 07:15 09/07/24 08:09 Heparin Drip IV 13.88 unit/kg/hr CONT SHAY 17 mls/hr Administration Protocol Per Protocol PFSH Acute PFSH: Medical History Headache Accelerated hypertension Uncontrolled type 1 diabetes mellitus ESRD (end stage renal disease) Dialysis complication Hypoglycemia Hemodialysis catheter dysfunction Hyperkalemia Colitis End stage renal disease on dialysis COPD (chronic obstructive pulmonary disease) Diabetes mellitus Transaminitis Intractable nausea and vomiting Hyperlipidemia HTN (hypertension) CHF (congestive heart failure), NYHA class III Pulmonary hypertension CAD (coronary artery disease) Neurogenic bladder COVID-19 Tobacco dependence Drug abuse Anemia Community acquired pneumonia Esophagitis Long-term insulin use History of pancreatitis Celiac disease Recurrent UTI Non-alcoholic fatty liver disease Arnold-Chiari malformation Diabetic gastroparesis -continue Reglan Diabetic neuropathy associated with type 1 diabetes mellitus Headache, common migraine, intractable, with status migrainosus Pleural effusion 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 History of lung surgery -s/p LLL lobectomy secondary to cavitary pneumonia (2017) History of endoscopy History of cholecystectomy Family History Grandfather Diabetes Mother CAD (coronary artery disease) Diabetes Heart disease Hypertension Brother Acute lymphoblastic leukemia (ALL) in child Grandmother Thyroid disease Denies family history of Colon cancer Ovarian cancer Prostate cancer Hyperlipidemia Breast cancer Uterine cancer Stroke Social History Smoking and tobacco/nicotine status: former use of tobacco/nicotine Quit status (tobacco/nicotine): has quit using Former quit date comment: She previously smoked <1/2 PPD, quit July 2023. Second hand smoke exposure: Yes Alcohol intake: never Substance/Drug Use: current Household members: children Housing: House Marital status: Single Current occupational status: unemployed Vitals/I&O/Wt Last Vital Signs Temp 98.1 F 09/07/24 03:19 Pulse 69 09/07/24 07:07 Resp 18 09/07/24 05:00 BP 97/48 09/07/24 07:07 Pulse Ox 99 09/07/24 07:07 O2 Del Method Room Air 09/07/24 07:01 Weight last 48 hrs Weight 135 lb Physical Exam Narrative: GENERAL: The patient is alert and oriented times three. Not in any acute distress. HEENT: Moderate pallor. No icterus or lymphadenopathy.Oral cavity: There are no mucous membrane lesions. NECK: Trachea appears to be central. No masses noted. No JVD or thyromegaly appreciated. RESPIRATORY: Chest is symmetrical. No intercostals muscle retraction or any accessory muscle activation. There is no chest wall tenderness. Breath sounds are heard bilaterally. No rales or rhonchi heard. No evidence of any consolidation. BREASTS: Deferred. HEART: The heart sounds are normal. No S3 or S4. No significant murmurs. No pericardial rub ABDOMEN: No vessel pulsations or distention. No tenderness. No organomegaly appreciated. Bowel sounds are normally heard. : Deferred. RECTAL: Deferred. LYMPHATIC: No lymphadenopathy noted in the neck. EXTREMITIES: No edema or cyanosis. No clubbing. MUSCULOSKELETAL: No acute joint deformities or swelling SKIN: There are no significant rashes or ecchymosis NEUROPSYCHIATRIC: The patient is alert and oriented x3. Appears to be in a good mood. No tremors or rigidity noted. Data 09/08/24 05:02 09/08/24 05:02 Other Labs: Laboratory Last Values WBC 8.11 10^3/uL (3.29-11.43) 09/08/24 05:02 RBC 3.08 10^6/uL (3.85-5.65) L 09/08/24 05:02 Hgb 9.20 g/dL (11.27-16.99) L 09/08/24 05:02 Hct 29.4 % (36-47) L 09/08/24 05:02 MCV 95.5 fl (85-98) 09/08/24 05:02 MCH 29.9 pg (27-33) 09/08/24 05:02 MCHC 31.3 g/dL (30-55) 09/08/24 05:02 RDW 14.8 % (12.1-15.1) 09/08/24 05:02 Plt Count 141 10^3/cmm (157-399) L 09/08/24 05:02 MPV 10.8 fL (7.4-10.4) H 09/08/24 05:02 Neut % (Auto) 70.1 % 09/08/24 05:02 Lymph % (Auto) 17.8 % 09/08/24 05:02 [place] % (Auto) 6.4 % 09/08/24 05:02 Eos % (Auto) 4.8 % 09/08/24 05:02 Baso % (Auto) 0.7 % 09/08/24 05:02 Neut # (Auto) 5.68 10^3/uL (1.8-7.7) 09/08/24 05:02 Lymph # (Auto) 1.4 10^3/uL (0.8-4.8) 09/08/24 05:02 [place] # (Auto) 0.5 10^3/uL (0.2-0.9) 09/08/24 05:02 Eos # (Auto) 0.4 10^3/uL (0.0-0.8) 09/08/24 05:02 Baso # (Auto) 0.1 10^3/uL (0.0-0.1) 09/08/24 05:02 Nucleated RBC % (auto) 0 % 09/08/24 05:02 Nucleated RBCs # 0.0 /100WBC 09/08/24 05:02 APTT 57.5 SECONDS (23.9-36.7) H 09/07/24 22:35 Sodium 138 mmol/L (136-145) 09/08/24 05:02 Potassium 4.2 mmol/L (3.5-5.1) 09/08/24 05:02 Chloride 102 mmol/L (98-107) 09/08/24 05:02 Carbon Dioxide 23 mmol/L (22-29) 09/08/24 05:02 Anion Gap 17.2 (5-19) 09/08/24 05:02 BUN 27 mg/dL (6-20) H 09/08/24 05:02 Creatinine 3.8 mg/dL (0.5-0.9) H 09/08/24 05:02 GFR Calculation 13.3 mL/min (90-130) L 09/08/24 05:02 Glucose 90 mg/dL (65-115) 09/08/24 05:02 POC Glucose 93 mg/dL (70-110) 09/08/24 06:22 Calculated Osmolality 291 mOsm/kg (285-295) 09/08/24 05:02 Calcium 8.7 mg/dL (8.5-10.5) 09/08/24 05:02 Total Bilirubin 0.3 mg/dL (0.15-1.2) 09/08/24 05:02 AST 16 U/L (0-32) 09/08/24 05:02 ALT 12 U/L (0-33) 09/08/24 05:02 Alkaline Phosphatase 123 U/L (35-105) H 09/08/24 05:02 Troponin T Baseline 233 ng/L (0-10) H* 09/07/24 04:04 Troponin T 120 Minute 251.2 ng/L (0-10) H 09/07/24 05:20 Delta Troponin T 18.2 ABS# (0-10) H* 09/07/24 05:20 NT-Pro-B Natriuret Pep > 28016 pg/mL (0-125) H 09/07/24 04:04 Total Protein 7.3 g/dL (6.6-8.7) 09/08/24 05:02 Albumin 3.4 g/dL (3.5-5.2) L 09/08/24 05:02 Globulin 3.9 g/dL (1.3-4.6) 09/08/24 05:02 Procalcitonin 0.17 ng/mL (0-0.5) 09/07/24 04:04 Hep Bs Antigen Non-reactive (Nonreactive) 09/07/24 04:04 Hep Bs Antibody 6.2 (11.5-1000) L 09/07/24 04:04 Hepatitis C Antibody Non-reactive (Nonreactive) 09/07/24 04:04 EKG 1: My Interpretation: Normal sinus rhythm with occasional PACs. Possible old inferior wall MN. Possible left atrial enlargement. Diffuse nonspecific ST-T changes in the anterolateral leads. Other data: Cardiac catheterization in March 2024 diagnostic Findings * Left main: Luminal irregularity with distal 20 to 30% stenosis LAD has luminal irregularity with mid patent previously placed stent Left circumflex has luminal irregularity with patent previously placed proximal stent RCA is 100% occluded in the mid segment it has [id number] faint collaterals it appeared to be the culprit vessel. PCI Status: Elective PCI Indication: NSTE - ACS Interventional Findings * Successful PCI to distal RCA. Lesion was prepared with 2.5 x 20 mm AB TREK balloon, followed by deployment of CYNTHIA MDT 3.0 x 18 mm stent posted at high ROSIE of 14 mm. Stent was then post-dilated with serial dilatation of NC MDT EUPHORA 3.25 x 12 at 18 ROSIE in its entire length to ensure proper approximation. Excellent angiographic result with KORIN-3 flow was achieved. A&P Assessment and plan (1) Atherosclerotic heart disease of beaver coronary artery with unstable angina pectoris: This patient has a history of multiple PCI's. Possibility of restenosis of the intervening lesions or progression of disease in the other vessels are considerations. The EKG is unremarkable. Cardiac enzymes are chronically elevated. Qualifiers: [place] vs. transplanted heart: beaver heart Qualified Code(s): I25.110 - Atherosclerotic heart disease of beaver coronary artery with unstable angina pectoris (2) Elevated troponin: The enzymes are chronically elevated. Most likely is related to the incisional disease. No significant a delta so far. (3) ESRD (end stage renal disease): Patient is on hemodialysis. This may be continued. Potassium level is within normal limits. (4) Uncontrolled type 1 diabetes mellitus: The blood sugar seems to be in the normal range at this time. May continue on the current management. Qualifiers: Glycemic state: with hyperglycemia Qualified Code(s): E10.65 - Type 1 diabetes mellitus with hyperglycemia (5) Hyperlipidemia: May continue on the current medications. Qualifiers: Hyperlipidemia type: mixed hyperlipidemia Qualified Code(s): E78.2 - Mixed hyperlipidemia Plan May continue the serial cardiac enzymes and EKGs. Patient may be treated with IV heparin along with the current medications. A limited 2D echocardiogram would be helpful to evaluate LV function and to rule out any other pathology If there is no significant echocardiogram findings, may consider doing a Myocardial perfusion imaging to further evaluate the coronary status. Based on the results of the above tests and the patient's clinical progress, further recommendations will be made. Thank you for the opportunity to evaluate this patient and make these recommendations PDMP PDMP Reviewed: Not Reviewed Consult Attestations Medical Necessity Statement: Patient requires continued hospital stay for close monitoring and further management Coding Level of Care Code 35168 Diagnoses Atherosclerosis of beaver coronary artery of beaver heart with unstable angina pectoris I25.110 [place] vs. transplanted heart: beaver heart Elevated troponin R77.8 ESRD (end stage renal disease) N18.6 Uncontrolled type 1 diabetes mellitus with hyperglycemia E10.65 Glycemic state: with hyperglycemia Mixed hyperlipidemia E78.2 Hyperlipidemia type: mixed hyperlipidemia
[2024-09-07 08:36] LABS: NT Pro B Type Natriuretic Pept > 70000 pg/mL (0-125)
--- NOTE | 2024-09-07 09:30 | ECG_ITS ---
[employer] Test Date: 2024-09-07 Pat Name: Donita Aguilar Department: Room: 102 Gender: Female Acid Loader: : 1985 Requested By: Abimael Thompson Order Number: [id number] Reading MD: JOSEFA TALLEY Measurements Intervals [place] Rate: 71 P: 49 UT: 182 QRS: -14 QRSD: 105 T: -22 QT: 446 QTc: 486 Interpretive Statements SINUS RHYTHM INFERIOR MYOCARDIAL INFARCTION , OF INDETERMINATE AGE [40+ ms Q WAVE AND/OR ST/T ABNORMALITY IN II/aVF] Compared to ECG 09/07/2024 05:32:17 No significant changes Electronically Signed On 09-07-2024 18:12:44 CDT by JOSEFA TALLEY [email or web address]
[2024-09-07 10:27] LABS: Hepatitis B Surface AB 6.2 (11.5-1000); Hepatitis B Surface Antigen Non-Reactive (Nonreactive)
[2024-09-07 10:49] LABS: Hepatitis C Virus Antibody Non-Reactive (Nonreactive)
--- NOTE | 2024-09-07 11:01 | PC.NURSE ---
Patient transferred from ED to CSU at 1055.
[2024-09-07 11:31] LABS: Glucose Point of Care 154 mg/dL (70-110)
[2024-09-07] MEDS: insulin lispro 100 unit/1 mL SUBCUT (12:06)
[2024-09-07] MEDS: clopidogrel 75 mg Tablet PO (12:07)
[2024-09-07] MEDS: aspirin 81 mg EC Tablet PO (12:07)
--- NOTE | 2024-09-07 12:32 | PM.CONSULT ---
Providers/Reason For Consult Consulting Physician/Specialty*: nephrology Reason for Consult*: esrd Requesting Physician: DR Díaz Attending Physician: Jd Díaz Primary Care Provider: SUZANNE Dias History of Present Illness History of Present Illness Patient is a 39 year old female, with a history of esrd, htn, dm1, cad, who presented to the er on 09/07 complaining of substernal chest pressure radiating to her neck, jaw and back that woke her from sleep at 2am today. She also reports associated sob. She notes that she was unable to complete her HD treatment on 09/05 due to chest pain. She was sent to the [facility] er on 09/05 with approximately 1 hr 45 minutes left in her hd treatment. She notes that her symptoms resolved with ntg and she was discharged from the hospital. She felt well until this am when she acutely developed chest pain. CXR on presentation revealed pulomonary edema Review of Systems General: Reports: 10 or more systems reviewed and unremarkable except in HPI and below Medications/Allergies Home Medications ?Medication ?Instructions ?Recorded ?Confirmed ?Last Taken ?Type blood-glucose meter,continuous #1 ea 06/12/22 09/07/24 Unknown Rx (Dexcom G6 Group Insurance Special Agent) blood-glucose sensor (Dexcom G6 #3 ea 06/12/22 09/07/24 Unknown Rx Sensor device) blood-glucose transmitter (Dexcom #1 ea 06/12/22 09/07/24 Unknown Rx G6 Transmitter device) sevelamer carbonate 800 mg tablet 800 mg PO TID #90 tabs 09/16/23 09/07/24 09/06/24 Rx clonidine HCl 0.1 mg tablet See Rx Instructions .Route 11/27/23 09/07/24 Unknown History .COMPLEX PRN Blood Pressure gabapentin 100 mg capsule 100 mg PO TID 12/27/23 09/07/24 09/05/24 History aspirin 81 mg tablet,delayed 81 mg PO QAM 30 days #30 tabs 03/28/24 09/07/24 09/06/24 Rx release atorvastatin 40 mg tablet 40 mg PO BEDTIME 30 days #30 tabs 03/28/24 09/07/24 09/06/24 Rx insulin glargine 100 unit/mL (3 5 unit SUBCUT QPM 04/06/24 09/07/24 09/06/24 History mL) subcutaneous pen (Lantus Solostar U-100 Insulin) insulin aspart U-100 100 unit/mL 5 unit (0.05 mL) SUBCUT TID #15 mL 04/11/24 09/07/24 09/06/24 Rx (3 mL) subcutaneous pen (Novolog FlexPen U-100 Insulin aspart) AFO brace #1 ea 04/20/24 09/07/24 Unknown Rx diabetic shoes with 3 inserts #1 ea 04/20/24 09/07/24 Unknown Rx clopidogrel 75 mg tablet 75 mg PO DAILY 04/28/24 09/07/24 09/06/24 History bumetanide 1 mg tablet See Rx Instructions .Route .COMPLEX 09/05/24 09/07/24 09/06/24 History carvedilol 3.125 mg tablet 3.125 mg PO BID 09/05/24 09/07/24 09/06/24 History nifedipine 90 mg tablet,extended 90 mg PO BEDTIME 09/05/24 09/07/24 09/06/24 History release escitalopram oxalate 10 mg tablet 10 mg PO DAILY 09/07/24 09/07/24 09/06/24 History lisinopril 40 mg tablet 40 mg PO QAM 09/07/24 09/07/24 09/06/24 History Allergies Allergy/AdvReac Type Severity Reaction Status Date / Time acetaminophen AdvReac Mild ADR-Gastrointestinal Verified 09/03/24 16:10 Upset Current Medications Generic Name Dose Route Start Last Admin Trade Name Freq PRN Reason Stop Dose Admin Aspirin 81 mg 09/07/24 11:00 09/07/24 12:07 Aspirin 81 Mg Ec Tablet PO 81 mg QAM SHAY Administration Clopidogrel Bisulfate 75 mg 09/07/24 11:00 09/07/24 12:07 Clopidogrel 75 Mg Tablet PO 75 mg DAILY SHAY Administration Heparin Sodium/Sodium Chloride 25,000 unit in 500 mls @ 0 mls/hr 09/07/24 07:15 09/07/24 08:09 Heparin Drip IV 13.88 unit/kg/hr CONT SHAY 17 mls/hr Administration Protocol Per Protocol Insulin Human Lispro 0 unit 09/07/24 12:00 09/07/24 12:06 Insulin Lispro 100 Unit/1 Ml SUBCUT 2 unit WM&BEDTIME SHAY Administration Protocol PFSH Acute PFSH: Medical History Headache Accelerated hypertension Uncontrolled type 1 diabetes mellitus ESRD (end stage renal disease) Dialysis complication Hypoglycemia Hemodialysis catheter dysfunction Hyperkalemia Colitis End stage renal disease on dialysis COPD (chronic obstructive pulmonary disease) Diabetes mellitus Transaminitis Intractable nausea and vomiting Hyperlipidemia HTN (hypertension) CHF (congestive heart failure), NYHA class III Pulmonary hypertension CAD (coronary artery disease) Neurogenic bladder COVID-19 Tobacco dependence Drug abuse Anemia Community acquired pneumonia Esophagitis Long-term insulin use History of pancreatitis Celiac disease Recurrent UTI Non-alcoholic fatty liver disease Arnold-Chiari malformation Diabetic gastroparesis -continue Reglan Diabetic neuropathy associated with type 1 diabetes mellitus Headache, common migraine, intractable, with status migrainosus Pleural effusion 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 History of lung surgery -s/p LLL lobectomy secondary to cavitary pneumonia (2017) History of endoscopy History of cholecystectomy Family History Grandfather Diabetes Mother CAD (coronary artery disease) Diabetes Heart disease Hypertension Brother Acute lymphoblastic leukemia (ALL) in child Grandmother Thyroid disease Denies family history of Colon cancer Ovarian cancer Prostate cancer Hyperlipidemia Breast cancer Uterine cancer Stroke Social History Smoking and tobacco/nicotine status: former use of tobacco/nicotine Quit status (tobacco/nicotine): has quit using Former quit date comment: She previously smoked <1/2 PPD, quit July 2023. Second hand smoke exposure: Yes Alcohol intake: never Substance/Drug Use: current Household members: children Housing: House Marital status: Single Current occupational status: unemployed Vitals/I&O/Wt Last Vital Signs Temp 98.6 F 09/07/24 11:02 Pulse 75 09/07/24 12:00 Resp 12 09/07/24 12:00 BP 139/79 09/07/24 12:00 Pulse Ox 96 09/07/24 12:00 O2 Del Method Room Air 09/07/24 12:00 Weight last 48 hrs Weight 66.224 kg Weight 61.235 kg Physical Exam Narrative: GEN: nad, alert, conversant, on 2L o2 HEAD: normocephalic, atraumatic EYES: eomi, anicteric sclera HEENT: MMM NECK: no jvd LUNGS: diminished BS bilaterally ABD: soft, nt, nd EXT: NO LE edema SKIN: no rash NEURO: grossly normal Data 09/07/24 04:04 09/07/24 04:04 A&P Assessment and plan (1) ESRD (end stage renal disease): Plan esrd- She is on maintenace HD on a tts u, but was unable to complete he HD treatment on 09/05. i will plan on HD today ewith uf as tolerated acute chf- i will plan on uf with hd today as tolerated cad with chest pain- further management per cardiology anemia in ckd- she is on an outpatient sultana ad iron protocol. cont to monitor hgb and transfuse as indicated essential hypertension- bp is on the low side. cont to monitor dm1 PDMP PDMP Reviewed: Not Reviewed Consult Attestations Medical Necessity Statement: esrd, cad, cp Time Spent in Patient Care: 50 minutes Coding Level of Care Code Acute Code for Chg Fwd Diagnoses ESRD (end stage renal disease) N18.6
--- NOTE | 2024-09-07 12:33 | PC.NURSE ---
Provider is updated that she is asking for something for pain. No new orders were given due to blood pressures dropping during dialysis.
[2024-09-07] MEDS: sevelamer 800 mg Tablet PO ×2 (14:14→20:15)
[2024-09-07] MEDS: midodrine 5 mg TABLET 10 MG PO (14:15)
[2024-09-07 14:47] LABS: Partial Thromboplastin Time 43.5 SECONDS (23.9-36.7)
--- NOTE | 2024-09-07 14:55 | PC.NURSE ---
Patient left unit for dialysis at 1450.
[2024-09-07] MEDS: albumin 12.5 GM/50 ML VIAL IV ×2 (15:13→16:05)
--- NOTE | 2024-09-07 15:20 | PC.HD ---
Heparin 1000 units loading dose administered at 1503 via venous port of HD catheter per manager compliance's orders. Patient received Midodrine prior to treatment initiation, and is receiving prn albumin during treatment.
[2024-09-07 17:01] LABS: Glucose Point of Care 124 mg/dL (70-110)
--- NOTE | 2024-09-07 18:17 | PC.NURSE ---
Bronwyn RN from dialysis called to update nursing staff that patients blood pressure is elevated. It is 190/91. She has had 2 bags of albumin and midodrine 10mg prior to dialysis. Provider is updated and asked dialysis nurse to sit patient up because it may be due to postural hypertension. Dialysis nurse is told this and told to update provider. Dialysis nurse called about a half hour later and said that her BP was 199/96. Provider is updated and wants Bronwyn to update the neurologist and ask for orders. Bronwyn said that she only had about 15 minutes left so she would bring her back to the unit soon.
--- NOTE | 2024-09-07 18:27 | PC.NURSE ---
Addendum entered by Mikki Beach RN 09/07/24 18:54: Provider is updated that She is back to CSU now. Her blood pressure is 181/82 with HR of 74. Her pain 9/10. chest. No new orders at this time. Original Note: Patient returned to CSU from dialysis at 1825.
[2024-09-07] MEDS: insulin glargine 100 units/1 mL 5 UNIT SUBCUT (18:52)
--- NOTE | 2024-09-07 19:03 | PC.NURSE ---
Provider ordered nitro drip per protocol. ordered to start at the lowest dose due to her chest pain and high blood pressure.
[2024-09-07] MEDS: nitroglycerin drip 50 MG/250 ML PREMIX IV (19:40)
[2024-09-07] MEDS: atorvastatin 40 mg Tablet PO (20:15)
[2024-09-07 20:45] LABS: Glucose Point of Care 147 mg/dL (70-110)
[2024-09-07 22:57] LABS: Partial Thromboplastin Time 57.5 SECONDS (23.9-36.7)
[2024-09-08] VITALS (31 sets, daily range): BP systolic 108–201; BP diastolic 55–104; PULSE 66–80; RESP 0–18; TEMP 36.2–37.2; O2SAT 78–100
[2024-09-08] MEDS: morphine 4 mg/mL SDV 1 mL 2 MG IVP ×5 (03:30→21:50)
[2024-09-08 05:57] LABS: Basophils # 0.1 10^3/uL (0.0-0.1); Basophils % 0.7 %; Eosinophils # 0.4 10^3/uL (0.0-0.8); Eosinophils % 4.8 %; Hematocrit 29.4 % (36-47); Lymphocytes # 1.4 10^3/uL (0.8-4.8); Lymphocytes % 17.8 %; Mean Corpuscular HGB Conc 31.3 g/dL (30-55); Mean Corpuscular Hemoglobin 29.9 pg (27-33); Mean Corpuscular Volume 95.5 fl (85-98); Mean Platelet Volume 10.8 fL (7.4-10.4); Monocytes # 0.5 10^3/uL (0.2-0.9); Monocytes % 6.4 %; Neutrophils # 5.68 10^3/uL (1.8-7.7); Neutrophils % 70.1 %; Nucleated Red Blood Cells % 0 %; Platelet Count 141 10^3/cmm (157-399); Red Blood Count 3.08 10^6/uL (3.85-5.65); Red Cell Distribution Width 14.8 % (12.1-15.1); White Blood Count 8.11 10^3/uL (3.29-11.43)
[2024-09-08] MEDS: aspirin 81 mg EC Tablet PO (06:04)
[2024-09-08 06:21] LABS: Alanine Aminotransferase 12 U/L (0-33); Albumin Level 3.4 g/dL (3.5-5.2); Alkaline Phosphatase 123 U/L (35-105); Anion Gap 17.2 (5-19); Aspartate Amino Transferase 16 U/L (0-32); Blood Urea Nitrogen 27 mg/dL (6-20); Calcium 8.7 mg/dL (8.5-10.5); Carbon Dioxide 23 mmol/L (22-29); Chloride 102 mmol/L (98-107); Globulin 3.9 g/dL (1.3-4.6); Glomerular Filtration Rate 13.3 mL/min (90-130); Glucose 90 mg/dL (65-115); Osmolality Calculated 291 mOsm/kg (285-295); Potassium 4.2 mmol/L (3.5-5.1); Sodium 138 mmol/L (136-145); Total Bilirubin 0.3 mg/dL (0.15-1.2); Total Protein 7.3 g/dL (6.6-8.7)
[2024-09-08 06:36] LABS: Glucose Point of Care 93 mg/dL (70-110)
[2024-09-08] MEDS: clopidogrel 75 mg Tablet PO (08:17)
[2024-09-08] MEDS: bumetanide 1 mg Tablet PO (08:17)
[2024-09-08] MEDS: sevelamer 800 mg Tablet PO ×3 (08:17→21:51)
[2024-09-08] MEDS: escitalopram 10 mg Tablet PO (08:17)
[2024-09-08] MEDS: ondansetron 2 mg/ML SDV 2 mL 4 MG IVP ×2 (08:27→17:36)
--- NOTE | 2024-09-08 08:53 | USCV_ITS ---
Donita Aguilar Age: 39 Gender: F : 1985 Exam Date: 09/08/2024 09:21 Ordering Phys: Gilberto Eugene MD ([email or web address]) Technologist: Exam Location: [facility] [place] Indication: lv function BP: 120 / 70 HR: Rhythm: Sinus Technical Quality: Adequate MEASUREMENTS (Male / Female) Normal Values 2D ECHO LV Diastolic Diameter PLAX 4.4 cm 4.2 - 5.9 / 3.9 - 5.3 cm IVS Diastolic Thickness 1.2 cm 0.6 - 1.0 / 0.6 - 0.9 cm IVS Systolic Thickness 1.8 cm LVPW Diastolic Thickness 1.3 cm 0.6 - 1.0 / 0.6 - 0.9 cm LVPW Systolic Thickness 1.4 cm LVOT Diameter 1.5 cm LV Ejection Fraction 2D Teich 47.0 % LV Ejection Fraction MOD 4C 41.6 % LV Ejection Fraction MOD 2C 59.7 % LV Ejection Fraction 2C AL 63.1 % LA Diameter 3.8 cm RA Systolic Volume 4C AL 102.4 ml RA Systolic Volume 4C MOD 93.9 ml Aorta at Sinotubular Diameter 2.7 cm M-MODE LA Ao Ratio MM 1.3 AV Cusp Separation MM 1.9 cm FINDINGS Left Ventricle Mild diffuse hypokinesia of the inferior wall and basal inferolateral segment. Overall ejection fraction of 47 %.mild left ventricular hypertrophy. Right Ventricle The right ventricle is normal in size and function. Right Atrium The right atrium is normal in size. Left Atrium Mildly increased left atrial size. Mitral Valve No gross abnormalities . Aortic Valve No gross abnormalities noted Tricuspid Valve No gross abnormalities noted Pulmonic Valve No gross abnormalities . Pericardium Normal pericardium without effusion. Aorta Normal ascending aorta dimension. IVC Not visualized CONCLUSIONS Normal LV size with them ejection fraction of 47% Wall motion abnormalities as mentioned above Mildly increased left atrial size. There is no pericardial effusion. There are no intracardiac masses. Compared to the study from 04/05/2024, there is a drop in the LV ejection fraction Dr Gilberto Eugene MD [facility] (Electronically Signed) Final Date: 09 September 2024 00:41 S
--- NOTE | 2024-09-08 08:56 | PM.PN ---
Subjective Subjective: Patient continues to have episodes of chest pains. At times intensity of the pain is up to 10/10. No associated palpitation or dizziness. No nausea or vomiting. So far the cardiac enzymes are negative. No new EKG changes. The blood pressure has been fluctuating. At times the systolic blood pressure goes into the 200 range. Medications: Medication Review Details: Current Medications Albuterol/Ipratropium (Ipratropium-Albuterol 3 Ml Neb) 3 ml INHALATION Q4H PRN PRN Reason: SHORTNESS OF BREATH Alprazolam (Alprazolam 0.5 Mg Tablet) 0.5 mg PO TID PRN PRN Reason: ANXIETY Alteplase, Recombinant (Alteplase 1 Mg/Ml Sdv 2 Ml) 2 mg INTRACATH PRN PRN PRN Reason: DIALYSIS USE ONLY Aspirin (Aspirin 81 Mg Ec Tablet) 81 mg PO QAM [facility] Last Admin: 09/08/24 06:04 Dose: 81 mg Atorvastatin Calcium (Atorvastatin 40 Mg Tablet) 40 mg PO BEDTIME [facility] Last Admin: 09/07/24 20:15 Dose: 40 mg Bumetanide (Bumetanide 1 Mg Tablet) 0 mg PO DAILY [facility] Last Admin: 09/08/24 08:17 Dose: 1 mg Carvedilol (Carvedilol 3.125 Mg Tablet) 3.125 mg PO BID [facility] Clopidogrel Bisulfate (Clopidogrel 75 Mg Tablet) 75 mg PO DAILY [facility] Last Admin: 09/08/24 08:17 Dose: 75 mg Escitalopram Oxalate (Escitalopram 10 Mg Tablet) 10 mg PO DAILY [facility] Last Admin: 09/08/24 08:17 Dose: 10 mg Gabapentin (Gabapentin 100 Mg Capsule) 100 mg PO TID [facility] Glucagon (Glucagon 1 Mg/Ml Kit 1 Ml) 1 mg IM ONCE PRN; Protocol PRN Reason: Adult Acute Hypoglycemia Nursing Prot. Heparin Sodium (Porcine) (Heparin 5,000 Unit/Ml Inj 1 Ml) 0 unit IVP PRN PRN; Protocol PRN Reason: Heparin Weight Based Protocol -Subsequent Bolus Heparin Sodium (Porcine) (Heparin, Porcine 1,000 Unit/Ml Inj 10 Ml) 1,000 unit IV PRN PRN PRN Reason: clotting Heparin Sodium/Sodium Chloride (Heparin Drip) 25,000 unit in 500 mls @ 0 mls/hr IV CONT SHAY; Protocol Last Titration: 09/08/24 08:14 Dose: 15.51 unit/kg/hr, 19 mls/hr Sodium Chloride (Sodium Chloride 0.9%) 1,000 mls @ 0 mls/hr IV .Q0M PRN PRN Reason: hypotension or symptomatic Albumin Human (Albumin) 12.5 gm in 50 mls @ 60 mls/hr IV PRN PRN PRN Reason: Hypotension and/or symptomatic Last Infusion: 09/08/24 02:18 Dose: Infused Dextrose (D5w) 500 mls @ 0 mls/hr IV ONCE PRN; Protocol PRN Reason: Adult Acute Hypoglycemia Prot Dextrose (D10w) 125 mls @ 750 mls/hr IV PRN PRN; Protocol PRN Reason: Adult Acute Hypoglycemia Nursing Protocol Dextrose (D10w) 250 mls @ 1,000 mls/hr IV PRN PRN; Protocol PRN Reason: Adult Acute Hypoglycemia Nursing Protocol Nitroglycerin/Dextrose (Nitroglycerin Drip) 50 mg in 250 mls @ 0 mls/hr IV .Q0M [facility]; Protocol Last Admin: 09/07/24 19:40 Dose: 5 mcg/min, 1.5 mls/hr Insulin Glargine (Insulin Glargine 100 Units/1 Ml) 5 unit SUBCUT QPM [facility] Last Admin: 09/07/24 18:52 Dose: 5 unit Insulin Human Lispro (Insulin Lispro 100 Unit/1 Ml) 0 unit SUBCUT WM&BEDTIME [facility]; Protocol Last Admin: 09/08/24 08:01 Dose: Not Given Midodrine (Midodrine 5 Mg Tablet) 10 mg PO TID PRN PRN Reason: hypotension Last Admin: 09/07/24 14:15 Dose: 10 mg Morphine Sulfate (Morphine 4 Mg/Ml Sdv 1 Ml) 2 mg IVP Q4H PRN PRN Reason: SEVERE PAIN Last Admin: 09/08/24 08:27 Dose: 2 mg Ondansetron HCl (Ondansetron 2 Mg/Ml Sdv 2 Ml) 4 mg IVP Q8H PRN PRN Reason: vomiting, or N/V if npo Last Admin: 09/08/24 08:27 Dose: 4 mg Sevelamer Carbonate (Sevelamer 800 Mg Tablet) 800 mg PO TID [facility] Last Admin: 09/08/24 08:17 Dose: 800 mg Vitals/I&O/Wt Last Vital Signs Temp 98.5 F 09/08/24 07:55 Pulse 71 09/08/24 07:55 Resp 17 09/08/24 08:27 BP 184/89 09/08/24 07:55 Pulse Ox 96 09/08/24 08:27 O2 Del Method Room Air 09/08/24 07:55 09/07/24 09/08/24 09/08/24 22:59 06:59 14:59 Intake Total 888.267 / 1008.267 293.767 / 1302.034 159.283 / 159.283 Output Total 3600 / 3600 0 / 3600 Balance -2711.733 / -2591.733 293.767 / -2297.966 159.283 / 159.283 Weight last 48 hrs Weight 138 lb 14.4 oz Weight 143 lb 4.807 oz Weight 146 lb Weight 135 lb Physical Exam Narrative: GENERAL: The patient is alert and oriented times three. Not in any acute distress. HEENT: Moderate pallor. No icterus or lymphadenopathy.Oral cavity: There are no mucous membrane lesions. NECK: Trachea appears to be central. No masses noted. No JVD or thyromegaly appreciated. RESPIRATORY: Chest is symmetrical. No intercostals muscle retraction or any accessory muscle activation. There is no chest wall tenderness. Breath sounds are heard bilaterally. No rales or rhonchi heard. No evidence of any consolidation. BREASTS: Deferred. HEART: The heart sounds are normal. No S3 or S4. No significant murmurs. No pericardial rub ABDOMEN: No vessel pulsations or distention. No tenderness. No organomegaly appreciated. Bowel sounds are normally heard. : Deferred. RECTAL: Deferred. LYMPHATIC: No lymphadenopathy noted in the neck. EXTREMITIES: No edema or cyanosis. No clubbing. MUSCULOSKELETAL: No acute joint deformities or swelling SKIN: There are no significant rashes or ecchymosis NEUROPSYCHIATRIC: The patient is alert and oriented x3. Appears to be in a good mood. No tremors or rigidity noted. Data 09/08/24 05:02 09/08/24 05:02 Other Labs: Laboratory Last Values WBC 8.11 10^3/uL (3.29-11.43) 09/08/24 05:02 RBC 3.08 10^6/uL (3.85-5.65) L 09/08/24 05:02 Hgb 9.20 g/dL (11.27-16.99) L 09/08/24 05:02 Hct 29.4 % (36-47) L 09/08/24 05:02 MCV 95.5 fl (85-98) 09/08/24 05:02 MCH 29.9 pg (27-33) 09/08/24 05:02 MCHC 31.3 g/dL (30-55) 09/08/24 05:02 RDW 14.8 % (12.1-15.1) 09/08/24 05:02 Plt Count 141 10^3/cmm (157-399) L 09/08/24 05:02 MPV 10.8 fL (7.4-10.4) H 09/08/24 05:02 Neut % (Auto) 70.1 % 09/08/24 05:02 Lymph % (Auto) 17.8 % 09/08/24 05:02 [place] % (Auto) 6.4 % 09/08/24 05:02 Eos % (Auto) 4.8 % 09/08/24 05:02 Baso % (Auto) 0.7 % 09/08/24 05:02 Neut # (Auto) 5.68 10^3/uL (1.8-7.7) 09/08/24 05:02 Lymph # (Auto) 1.4 10^3/uL (0.8-4.8) 09/08/24 05:02 [place] # (Auto) 0.5 10^3/uL (0.2-0.9) 09/08/24 05:02 Eos # (Auto) 0.4 10^3/uL (0.0-0.8) 09/08/24 05:02 Baso # (Auto) 0.1 10^3/uL (0.0-0.1) 09/08/24 05:02 Nucleated RBC % (auto) 0 % 09/08/24 05:02 Nucleated RBCs # 0.0 /100WBC 09/08/24 05:02 APTT 57.5 SECONDS (23.9-36.7) H 09/07/24 22:35 Sodium 138 mmol/L (136-145) 09/08/24 05:02 Potassium 4.2 mmol/L (3.5-5.1) 09/08/24 05:02 Chloride 102 mmol/L (98-107) 09/08/24 05:02 Carbon Dioxide 23 mmol/L (22-29) 09/08/24 05:02 Anion Gap 17.2 (5-19) 09/08/24 05:02 BUN 27 mg/dL (6-20) H 09/08/24 05:02 Creatinine 3.8 mg/dL (0.5-0.9) H 09/08/24 05:02 GFR Calculation 13.3 mL/min (90-130) L 09/08/24 05:02 Glucose 90 mg/dL (65-115) 09/08/24 05:02 POC Glucose 93 mg/dL (70-110) 09/08/24 06:22 Calculated Osmolality 291 mOsm/kg (285-295) 09/08/24 05:02 Calcium 8.7 mg/dL (8.5-10.5) 09/08/24 05:02 Total Bilirubin 0.3 mg/dL (0.15-1.2) 09/08/24 05:02 AST 16 U/L (0-32) 09/08/24 05:02 ALT 12 U/L (0-33) 09/08/24 05:02 Alkaline Phosphatase 123 U/L (35-105) H 09/08/24 05:02 Troponin T Baseline 233 ng/L (0-10) H* 09/07/24 04:04 Troponin T 120 Minute 251.2 ng/L (0-10) H 09/07/24 05:20 Delta Troponin T 18.2 ABS# (0-10) H* 09/07/24 05:20 NT-Pro-B Natriuret Pep > 46910 pg/mL (0-125) H 09/07/24 04:04 Total Protein 7.3 g/dL (6.6-8.7) 09/08/24 05:02 Albumin 3.4 g/dL (3.5-5.2) L 09/08/24 05:02 Globulin 3.9 g/dL (1.3-4.6) 09/08/24 05:02 Procalcitonin 0.17 ng/mL (0-0.5) 09/07/24 04:04 Hep Bs Antigen Non-reactive (Nonreactive) 09/07/24 04:04 Hep Bs Antibody 6.2 (11.5-1000) L 09/07/24 04:04 Hepatitis C Antibody Non-reactive (Nonreactive) 09/07/24 04:04 A&P Assessment and plan (1) Atherosclerotic heart disease of [place] coronary artery with unstable angina pectoris: This patient has a history of multiple PCI's. Possibility of restenosis of the intervened lesions or progression of disease in the other vessels are considerations. The EKG is unremarkable. Cardiac enzymes are chronically elevated. In view of her ongoing chest pains, it may be appropriate to go ahead and do a repeat cardiac catheterization to evaluate the coronary status. For the time being, patient may be continued on the IV heparin and other current medications Qualifiers: [place] vs. transplanted heart: [place] heart Qualified Code(s): I25.110 - Atherosclerotic heart disease of [place] coronary artery with unstable angina pectoris (2) Elevated troponin: The enzymes are chronically elevated. This could be related to the the chronic kidney disease. No significant a delta so far. However the patient has severe underlying coronary disease requiring multiple PCI's. The echocardiogram reveals normal LV size with diminished ejection fraction of 47%. Compared to the previous echocardiogram, this is a significant drop. (3) ESRD (end stage renal disease): Patient appears to have fluid overload. The nephrology service is recommending hemodialysis. (4) Uncontrolled type 1 diabetes mellitus: The blood sugar seems to be in the normal range at this time. May continue on the current management. Qualifiers: Glycemic state: with hyperglycemia Qualified Code(s): E10.65 - Type 1 diabetes mellitus with hyperglycemia (5) Hyperlipidemia: May continue on the current medications. Qualifiers: Hyperlipidemia type: mixed hyperlipidemia Qualified Code(s): E78.2 - Mixed hyperlipidemia Plan Because of the patient's ongoing chest pain, it may be appropriate to go ahead with a cardiac catheterization to further evaluate the coronary status and decide on further management. This was discussed with the patient in detail. The risk of bleeding, hematoma, vascular injury, myocardial infarction, myocardial perforation, malignant cardiac arrhythmias ,CVA, renal failure and other concomitant complications were explained in detail. Patient understood this well and consented to proceed. Because of the patient's chronic kidney disease and multiple other medical problems, she carries a relatively high risk. PDMP PDMP Reviewed: Not Reviewed Attestations Medical Necessity Statement*: Patient requires continued hospital stay for close monitoring and further management Coding Level of Care Code Acute Code for Chg Fwd Diagnoses Atherosclerosis of [place] coronary artery of [place] heart with unstable angina pectoris I25.110 [place] vs. transplanted heart: [place] heart Elevated troponin R77.8 ESRD (end stage renal disease) N18.6 Uncontrolled type 1 diabetes mellitus with hyperglycemia E10.65 Glycemic state: with hyperglycemia Mixed hyperlipidemia E78.2 Hyperlipidemia type: mixed hyperlipidemia
[2024-09-08 09:25] LABS: Partial Thromboplastin Time 42.7 SECONDS (23.9-36.7)
--- NOTE | 2024-09-08 09:55 | PC.CHAP ---
Pastoral Care Encounter/Spiritual Assessment Type of Contact [] Declined manufacturing test engineer visit [] Patient/Family/Request visit [] Outpatient visit [] Follow-up visit [] Physician referral [] Code/Alert [x] Routine visit [] Staff referral [] Actively dying [] Patient sleeping [] Family support [] [] Out of room [] Palliative care [] [] Receiving care in room [] Pre-surgical visit [] Trauma [] Long length of stay [] ICU visit [] Other: Relational/Emotional Strength [x] Patient feels connected with others/family/visitors/staff [] Distress [] Loneliness/isolation [] Abandonment Spirituality of Patient [x] Person of [place] [] Attends Jain of their [place] [x] Believes in Prayer [] Reads Bible or Islam materials [] There are Spiritual issues to be addressed Ditching Machine Operating Engineer Interventions [x] Prayer [x] Active listening [] Non-anxious presence [x] Spiritual/emotional support [] Crisis/trauma care [] Spiritual counseling [] Bereavement support [] Provided bereavement packet [] Provided Bible/devotional materials [] Provided toy/stuffed animal, coloring book to patient or family member [] Provided Communion [] Anointing/[place] [] Salvation [x] Completed spiritual assessment [] Other: Impact on Illness or Injury [] Angry [] Fearful [] Anxious [] Often cries [] Exhaustion [] Unable to work [] Unable to attend anglican [] Unable to walk/stand [] Unable to read [] Unable to drive [] Unable to eat/drink [] Unable to sleep [] Unable to be with family [] Patient intubated [] Other: Summary Time spent with patient 5 min
--- NOTE | 2024-09-08 11:53 | P.PN_ITS ---
Subjective 2 Subjective: weak, nausea, less sob. nitro drip and heparin drip Medications: Reviewed: Yes Medication Review Details: Current Medications Albuterol/Ipratropium (Ipratropium-Albuterol 3 Ml Neb) 3 ml INHALATION Q4H PRN PRN Reason: SHORTNESS OF BREATH Alprazolam (Alprazolam 0.5 Mg Tablet) 0.5 mg PO TID PRN PRN Reason: ANXIETY Alteplase, Recombinant (Alteplase 1 Mg/Ml Sdv 2 Ml) 2 mg INTRACATH PRN PRN PRN Reason: DIALYSIS USE ONLY Aspirin (Aspirin 81 Mg Ec Tablet) 81 mg PO QAM [facility] Last Admin: 09/08/24 06:04 Dose: 81 mg Atorvastatin Calcium (Atorvastatin 40 Mg Tablet) 40 mg PO BEDTIME [facility] Last Admin: 09/07/24 20:15 Dose: 40 mg Bumetanide (Bumetanide 1 Mg Tablet) 0 mg PO DAILY [facility] Last Admin: 09/08/24 08:17 Dose: 1 mg Carvedilol (Carvedilol 3.125 Mg Tablet) 3.125 mg PO BID [facility] Clopidogrel Bisulfate (Clopidogrel 75 Mg Tablet) 75 mg PO DAILY [facility] Last Admin: 09/08/24 08:17 Dose: 75 mg Escitalopram Oxalate (Escitalopram 10 Mg Tablet) 10 mg PO DAILY [facility] Last Admin: 09/08/24 08:17 Dose: 10 mg Gabapentin (Gabapentin 100 Mg Capsule) 100 mg PO TID [facility] Glucagon (Glucagon 1 Mg/Ml Kit 1 Ml) 1 mg IM ONCE PRN; Protocol PRN Reason: Adult Acute Hypoglycemia Nursing Prot. Heparin Sodium (Porcine) (Heparin 5,000 Unit/Ml Inj 1 Ml) 0 unit IVP PRN PRN; Protocol PRN Reason: Heparin Weight Based Protocol -Subsequent Bolus Heparin Sodium (Porcine) (Heparin, Porcine 1,000 Unit/Ml Inj 10 Ml) 1,000 unit IV PRN PRN PRN Reason: clotting Heparin Sodium/Sodium Chloride (Heparin Drip) 25,000 unit in 500 mls @ 0 mls/hr IV CONT [facility]; Protocol Last Titration: 09/08/24 10:16 Dose: 17.15 unit/kg/hr, 21 mls/hr Sodium Chloride (Sodium Chloride 0.9%) 1,000 mls @ 0 mls/hr IV .Q0M PRN PRN Reason: hypotension or symptomatic Albumin Human (Albumin) 12.5 gm in 50 mls @ 60 mls/hr IV PRN PRN PRN Reason: Hypotension and/or symptomatic Last Infusion: 09/08/24 02:18 Dose: Infused Dextrose (D5w) 500 mls @ 0 mls/hr IV ONCE PRN; Protocol PRN Reason: Adult Acute Hypoglycemia Prot Dextrose (D10w) 125 mls @ 750 mls/hr IV PRN PRN; Protocol PRN Reason: Adult Acute Hypoglycemia Nursing Protocol Dextrose (D10w) 250 mls @ 1,000 mls/hr IV PRN PRN; Protocol PRN Reason: Adult Acute Hypoglycemia Nursing Protocol Nitroglycerin/Dextrose (Nitroglycerin Drip) 50 mg in 250 mls @ 0 mls/hr IV .Q0M [facility]; Protocol Last Admin: 09/07/24 19:40 Dose: 5 mcg/min, 1.5 mls/hr Insulin Glargine (Insulin Glargine 100 Units/1 Ml) 5 unit SUBCUT QPM [facility] Last Admin: 09/07/24 18:52 Dose: 5 unit Insulin Human Lispro (Insulin Lispro 100 Unit/1 Ml) 0 unit SUBCUT WM&BEDTIME [facility]; Protocol Last Admin: 09/08/24 08:01 Dose: Not Given Midodrine (Midodrine 5 Mg Tablet) 10 mg PO TID PRN PRN Reason: hypotension Last Admin: 09/07/24 14:15 Dose: 10 mg Morphine Sulfate (Morphine 4 Mg/Ml Sdv 1 Ml) 2 mg IVP Q4H PRN PRN Reason: SEVERE PAIN Last Admin: 09/08/24 08:27 Dose: 2 mg Ondansetron HCl (Ondansetron 2 Mg/Ml Sdv 2 Ml) 4 mg IVP Q8H PRN PRN Reason: vomiting, or N/V if npo Last Admin: 09/08/24 08:27 Dose: 4 mg Sevelamer Carbonate (Sevelamer 800 Mg Tablet) 800 mg PO TID [facility] Last Admin: 09/08/24 08:17 Dose: 800 mg Vitals/I&O/Wt Last Vital Signs Temp 98.1 F 09/08/24 11:52 Pulse 66 09/08/24 11:52 Resp 12 09/08/24 11:52 BP 185/91 09/08/24 11:52 Pulse Ox 93 09/08/24 11:52 O2 Del Method Room Air 09/08/24 11:52 09/07/24 09/08/24 09/08/24 22:59 06:59 14:59 Intake Total 888.267 / 1008.267 293.767 / 1302.034 197.916 / 197.916 Output Total 3600 / 3600 0 / 3600 Balance -2711.733 / -2591.733 293.767 / -2297.966 197.916 / 197.916 Weight last 48 hrs Weight 63.004 kg Weight 65 kg Weight 66.224 kg Weight 61.235 kg Physical Exam 2 Narrative: Vital signs noted and elevated. The patient is in bed no apparent distress she has a swollen face on a nitro drip and heparin drip. HEENT normocephalic atraumatic and swollen. Lungs dullness bilaterally heart regular positive S1-S2 She has right chest wall tunneled dialysis catheter. Abdomen is soft nontender nondistended positive bowel sound. Extremity 1+ edema poor distal pulses right foot second toe amputation Neuro awake alert oriented x 3 normal pulses Data 09/08/24 05:02 09/08/24 05:02 A&P Assessment and plan (1) End stage renal disease on dialysis: 39-year-old lady history of ESRD diabetes htn. Chart reviewed Case reviewed. 1. ESRD will do dialysis today to try to remove fluids. Note very elevated BNP. 2. Elevated troponins discussed with Dr. Eugene plan will be for [facility] tomorrow patient has known coronary artery disease and has multiple stents. 3. Diabetic control. 4. Hypertension hopefully with fluid removal blood pressure will improve and be able to decrease nitro drip. 5. Anemia hemoglobin is stable 6. Check TSH 7. Check vitamin D and PTH level The patient was seen and examined with the aid of a nurse using audiovisual equipment. The patient consents to telehealth and hemodialysis. Plan Hemodialysis today and please wean off nitro drip. PDMP PDMP Reviewed: Not Reviewed Attestations 2 Medical Necessity Statement*: Positive troponin, CAD, ESRD, diabetes, hypertension Time Spent in Patient Care: Greater than 35 minutes (>than 50% of time spent in counselling and/or direct pt care on unit) . Coding Level of Care Code Acute Code for Chg Fwd Diagnoses End stage renal disease on dialysis N18.6; Z99.2
[2024-09-08 12:23] LABS: Glucose Point of Care 109 mg/dL (70-110)
[2024-09-08 12:51] LABS: Calcium 8.9 mg/dL (8.5-10.5); Parathyroid Hormone 217.3 pg/mL (15-65)
[2024-09-08] MEDS: heparin drip 25,000 UNIT/500 ML PREMIX 21 UNIT IV (12:57)
[2024-09-08 13:01] LABS: 25 Hydroxy Vitamin D 6 ng/mL (30-100); Iron 155 ug/dL (37-145); Thyroid Stimulating Hormone 4.98 uIU/mL (0.27-4.20)
--- NOTE | 2024-09-08 13:09 | PC.NURSE ---
Patient leaving the unit for dialysis at 1309.
[2024-09-08 13:15] LABS: Total Iron Binding Capacity 178 mcg/dl; Unsaturated Iron Binding 23 ug/dL (112-347)
[2024-09-08 13:20] LABS: Ferritin 1525 ng/mL (15-150)
--- NOTE | 2024-09-08 15:48 | P.PN_ITS ---
Subjective 2 Subjective: She is feeling similarly today, still chest discomfort is present. Vitals/I&O/Wt Last Vital Signs Temp 97.9 F 09/08/24 14:15 Pulse 70 09/08/24 14:15 Resp 16 09/08/24 14:15 BP 199/100 09/08/24 14:15 Pulse Ox 96 09/08/24 13:03 O2 Del Method Room Air 09/08/24 11:52 09/08/24 09/08/24 09/08/24 06:59 14:59 22:59 Intake Total 293.767 / 1302.034 239.091 / 239.091 Output Total 0 / 3600 Balance 293.767 / -2297.966 239.091 / 239.091 Weight last 48 hrs Weight 63.004 kg Weight 65 kg Weight 66.224 kg Weight 61.235 kg Physical Exam 2 Const: COMMON NORMALS: patient oriented x3 and alert GENERAL APPEARANCE: c ooperative ORIENTATION/CONSCIOUSNESS: Yes awake HENMT: COMMON NORMALS: oropharynx normal Neck/C-Spine: COMMON NORMALS: no JVD Chest: OTHER: Dialysis port right chest. Resp: COMMON NORMALS: normal respiratory effort and clear to auscultation bilaterally AUSCULTATION: clear to auscultation bilaterally Cardio: COMMON NORMALS: no JVD, regular rhythm, S1 normal heart sound present, S2 normal heart sound present and No murmurs present (Cardio) RHYTHM: regular rhythm HEART SOUNDS: S1 normal heart sound present and S2 normal heart sound present GI: COMMON NORMALS: Normal to inspection, nondistended, normoactive bowel sounds present, Soft to palpation and non-tender PALPATION: Yes Soft to palpation Extremity: COMMON NORMALS: no joint enlargement and no pedal edema N ARRATIVE EXTREMITY EXAM: AV graft proximal left medial arm Neuro: COMMON NORMALS: patient oriented x3 and moves all extremities S ENSORIUM/ORIENTATION: Yes alert Skin: COMMON NORMALS: no rashes or lesions noted GENERAL SKIN EXAM: no rashes or lesions noted Data 09/08/24 05:02 09/08/24 05:02 A&P Assessment and plan (1) Chest pain: Still having chest pain. Does state that morphine improves her symptoms. On nitroglycerin drip which was escalated further this morning. Monitor for risk of hypotension and methemoglobinemia. Wean nitroglycerin as possible. Discussed with senior asp net developer. Given persistent symptoms, known CAD, multiple required prior interventions, cardiology discussing with her regarding further steps, and plans are for coronary angiography tomorrow. Cardiogram has been requested. Obtained. Reviewed troponin series. Continue to monitor on telemetry. Continue to optimize hypertension. The patient presents with chest pain that radiated to the neck, jaw, and back, associated with difficulty breathing. Possible unstable angina. She reports it was similar to how she was feeling during her last heart attack. The pain was not relieved by nitroglycerin during a recent dialysis session. Troponin levels showed slight elevation, similar to previous levels. A chest X-ray indicated possible lung congestion or fluid overload. Reviewed vitals, CBC, BMP, troponin. Reviewed chest x-ray, ER provider note, discussed with ER provider. Troponin baseline 233, 2-hour troponin 251. EKG on my interpretation with T wave flattening in 2 3 and aVF. Noted Q waves in 2 and 3. Pending official read. She had a coronary angiography in March with stenting of RCA. She has been started on anticoagulation, monitor for risk of bleeding. Continue aspirin, Plavix, she states she has not missed any medications. Pending cardiology consultation. Monitor on telemetry with risk of arrhythmia. Chest x-ray with increased interstitial opacities in the lower hemithoraces, may represent mild pulmonary edema. Had incomplete dialysis on Saturday reportedly initially had soft blood pressure prior to dialysis and then had chest pain during dialysis. She reports recently her blood pressure has been running softer than in the past, at home blood pressure was 105/50. She has continued taking all her medications. She did not take nitroglycerin at home as she states lives 30 minutes away and was worried that trying things before coming to the hospital may delay her arrival. Qualifiers: Chest pain type: precordial pain Qualified Code(s): R07.2 - Precordial pain Plan Acute decompensated diastolic congestive heart failure. Discussed with precision grinder, plans are for her to undergo additional dialysis. With congestive changes on chest x-ray, with orthopneic symptoms, without peripheral edema. Assessment for possible cardiac ischemia as above. She makes a small amount of urine. Continue bumetanide. Hold antihypertensives as she will likely need dialysis. Her last session of dialysis on Saturday was cut short initially she had soft blood pressure, subsequently had a episode of chest pain and anxiety. She normally takes 50 mg of Benadryl with dialysis, received initially only 25 Giurgius of blood pressure, later requested for the other 25 mg, which made her feel unwell. Chronic diarrhea: Reports having had loose stools for a long time, without blood, nonpainful. Without recent changes. Will benefit from follow-up with primary provider. HTN: Nitroglycerin rate was increased due to persistently elevated blood pressure, chest pain. Monitor blood pressures. Hold antihypertensives for now with soft blood pressure and had soft blood pressure prior to dialysis on Saturday. COPD: not in exacerbation. Breathing treatments as needed. DM: conitnue Lantus. Sliding scale insulin. POC glucose monitoring. Anemia: Hb slightly lower than usual, possible dilutional 2/2 to fluid overload. Repeat blood counts. Anxiety Other medical problems PDMP PDMP Reviewed: Not Reviewed Attestations 2 Medical Necessity Statement*: Continue admission for assessment management of chest pain, possible unstable angina in a lady with underlying ESRD, difficult to control hypertension, additional comorbidities as above. Diagnoses Precordial pain R07.2 Chest pain type: precordial pain
--- NOTE | 2024-09-08 16:52 | PC.NURSE ---
Patient returned from dialysis to [facility] at 1455.
[2024-09-08 17:26] LABS: Glucose Point of Care 74 mg/dL (70-110)
[2024-09-08] MEDS: carvedilol 3.125 mg Tablet PO (17:35)
[2024-09-08] MEDS: gabapentin 100 mg Capsule PO ×2 (17:35→21:51)
[2024-09-08 17:50] LABS: Partial Thromboplastin Time 105.1 SECONDS (23.9-36.7)
[2024-09-08 20:53] LABS: Glucose Point of Care 140 mg/dL (70-110)
[2024-09-08] MEDS: atorvastatin 40 mg Tablet PO (21:51)
[2024-09-09] VITALS (75 sets, daily range): BP systolic 101–204; BP diastolic 44–101; PULSE 58–71; RESP 0–23; TEMP 36.4–36.9; O2SAT 84–100
[2024-09-09] MEDS: ALPRAZolam 0.5 mg Tablet PO ×2 (00:10→20:45)
[2024-09-09 00:37] LABS: Basophils # 0.1 10^3/uL (0.0-0.1); Basophils % 0.9 %; Eosinophils # 0.3 10^3/uL (0.0-0.8); Eosinophils % 4.6 %; Hematocrit 31.7 % (36-47); Lymphocytes # 1.9 10^3/uL (0.8-4.8); Lymphocytes % 28.4 %; Mean Corpuscular HGB Conc 32.2 g/dL (30-55); Mean Corpuscular Hemoglobin 29.4 pg (27-33); Mean Corpuscular Volume 91.4 fl (85-98); Mean Platelet Volume 10.6 fL (7.4-10.4); Monocytes # 0.5 10^3/uL (0.2-0.9); Monocytes % 7.9 %; Neutrophils # 3.87 10^3/uL (1.8-7.7); Neutrophils % 58.1 %; Nucleated Red Blood Cells % 0 %; Platelet Count 177 10^3/cmm (157-399); Red Blood Count 3.47 10^6/uL (3.85-5.65); White Blood Count 6.68 10^3/uL (3.29-11.43)
[2024-09-09 00:49] LABS: Partial Thromboplastin Time 43.4 SECONDS (23.9-36.7)
[2024-09-09 00:54] LABS: Magnesium 1.9 mg/dL (1.7-2.3); Phosphorus 3.7 mg/dL (2.5-4.5)
[2024-09-09 00:55] LABS: Albumin Level 4.6 g/dL (3.5-5.2); Alkaline Phosphatase 157 U/L (35-105); Chloride 100 mmol/L (98-107); Potassium 4.1 mmol/L (3.5-5.1); Sodium 140 mmol/L (136-145)
[2024-09-09 01:10] LABS: Anion Gap 17.1 (5-19); Aspartate Amino Transferase 17 U/L (0-32); Blood Urea Nitrogen 18 mg/dL (6-20); Calcium 9.1 mg/dL (8.5-10.5); Carbon Dioxide 27 mmol/L (22-29); Globulin 3.2 g/dL (1.3-4.6); Glomerular Filtration Rate 16.8 mL/min (90-130); Glucose 105 mg/dL (65-115); Osmolality Calculated 292 mOsm/kg (285-295); Total Bilirubin 0.3 mg/dL (0.15-1.2); Total Protein 7.8 g/dL (6.6-8.7)
[2024-09-09 01:33] LABS: Alanine Aminotransferase 13 U/L (0-33)
[2024-09-09 02:38] LABS: Urine Appearance Cloudy (CLEAR); Urine Color Red (Yellow)
[2024-09-09 02:39] LABS: Add Urine Culture? Yes; Add Urine Microscopic? YES; Bacteria Urine TRACE /hpf; Mucus Urine 2+ /hpf; RBC Urine TOO NUMEROUS TO CNT /hpf (0-2); Squamous Epithelial Cell Urine 0-4 /hpf (0-5); UA Manual Slide Review YES
[2024-09-09] MEDS: morphine 4 mg/mL SDV 1 mL 2 MG IVP ×4 (03:55→20:45)
[2024-09-09] MEDS: aspirin 81 mg EC Tablet PO (06:17)
[2024-09-09 06:19] LABS: Glucose Point of Care 99 mg/dL (70-110)
--- NOTE | 2024-09-09 07:02 | W.PM.OPSUD ---
Surgery/Procedure H&P Update DATE OF PROCEDURE: September 09, 2024 DATE H&P PERFORMED: 09/07/24 H&P UPDATE INFORMATION: I have reviewed H&P completed within last 30 days, I have examined patient prior to procedure and No changes to prior documentation PREOP DIAGNOSIS: ASHD PRIMARY INDICATION FOR PROCEDURE: Unstable angina/ASHD PLANNED PROCEDURE: Operation Date: 09/09/24 07:00 Proposed Procedures p Cardiac Catheterization(Left) - Gilberto Eugene MD PATIENT REASSESSED PRIOR TO SEDATION, WITH NO CHANGE NOTED: Yes PHYSICAL EXAM: alert, oriented x 3, clear to auscultation bilaterally and regular rate & rhythm AIRWAY EVAL/ANESTHESIA PLAN: normal airway, see other exam findings, ASA III, Monitored Anesthesia, Local Anesthesia, Risks, benefits & alternatives of sedation and/or procedure discussed and Patient agrees to continue as planned
--- NOTE | 2024-09-09 07:06 | PC.NURSE ---
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
--- NOTE | 2024-09-09 07:13 | XACV_ITS ---
Exam Room: [facility] Ht: 152 cm Wt: 60 kg BSA: 1.61 m2 Gender: Female : 1985 Any Known Allergies: Other Exam Priority: Routine Procedure(s): Procedure Description: Diagnostic procedure Procedure Description: PCI procedure Procedure Description: Left Heart Catheterization Procedure Description: Coronary IVUS Procedure Description: Drug Eluting Coronary Stent Procedure Description: PTCA Procedure Description: Miscellaneous Procedure Description: ACT Procedure Description: Coronary Angiography Procedure Description: Pressure Wire Jabier BLACKMON; Diagnostic Cath Status: Urgent Diagnostic Findings * The left main is a medium caliber vessel with no significant stenotic lesions. * The left anterior descending artery is a medium caliber vessel which appears to wraparound the LV apex minimally. The proximal to mid segment of the artery was found to have a long stented area which was found to be widely patent. The first diagonal vessel was found to have a proximal stented segment which was found to be widely patent. The ostium of the diagonal artery was found to have 50% stenosis. The rest of the diagonals and septal perforators were of small caliber. * The left circumflex artery is a medium caliber vessel which was found to have a high-grade ostial stenosis of around 99%. Mid vessel has prior stent with 60-70% instent restenosis. * The right coronary artery is a medium sized dominant vessel which was found to have 20 to 30% diffuse irregular narrowing in the proximal segment. The mid segment of the artery was found to have a patent stent. Just proximal to the stented segment, there was around 50-60% lesion. The PDA and the PLV branches were found to have mild diffuse intimal irregularities. No significant stenotic lesions. PCI Status: Urgent PCI Indication: NSTE - ACS Interventional Findings * Mid Right Coronary Artery: 60% stenosis treated with a MDT NC EUPHORA RX [id number] BALLOON. * Proximal Circumflex: 99% stenosis treated with a MDT NC EUPHORA RX 2.17U39WT BALLOON, MDT R KORIN 3.0X15 OLENA, and MDT NC EUPHORA RX [id number] BALLOON. * Procedure detail:We engaged left main artery with XB 3.0 guide catheter. IV heparin was administered to maintain anticoagulation. Runthrough guidewire was used to cross the stenosis in left circumflex artery and was placed in the distal vessel. IVUS was used to size the artery. We predilated the ostial left circumflex artery with 2.84o42ff NC balloon. This was followed by placement of 3.0x15mm resolute korin OLENA in the ostial left circumflex artery, protecting the LAD with a second runthrough wire. We then dilated the mid left circumflex artery ISR with 2.5x15mm NC balloon. Final angiogram was performed that showed excellent stent expansion, no residual stenosis and KORIN 3 flow. Guidewire and guide catheter were removed. We then turned out attention of mid RCA instent restenosis. We performed iFR that was abnormal at 0.85. This was followed by dilation of prior stents with 4.0x20mm NC balloon. At this time, final angiogram was performed that showed excellent stent expansion, KORIN 3 flow and no residual stenosis. Guidewire and guide catheter were removed. Patient left the laboratory mechanic helper in a stable condition. * Mid Circumflex: 70% stenosis treated with a MDT NC EUPHORA RX 2.14P33JH BALLOON. Conclusions 1. 39-year-old white female with a history of atherosclerotic heart disease, status post multiple PCI, end-stage renal disease, on hemodialysis, presented with increasing episodes of chest pain. She was found to have a chronically elevated troponin JASEN. The LV ejection fraction was around 45% by echocardiogram. This was a significant decline from the previous echocardiogram which revealed normal LV ejection fraction. For further evaluation of the patient's coronary status, a repeat cardiac catheterization was recommended. Patient underwent left heart catheterization with left and right coronary angiogram today. The findings are as follows. 2. High-grade critical lesion at the ostium of the left circumflex artery. LVEDP of 15 mmHg. 3. I reviewed and discussed the cardiac catheterization data with Dr. Burch. It was thought to be appropriate to consider PCI of the circumflex artery lesion. Dr. Burch concurred with this plan and took over further management this patient at this point. 4. S/p successful revascularization of ostial left circumflex artery with 1 stent. Significant ISR of mid left circumflex artery and RCA treated with balloon angioplasty. 5. Mid Right Coronary Artery was treated with a Balloon. 6. Proximal Circumflex was treated with a Balloon, Drug Eluting Stent, and Balloon. 7. Mid Circumflex was treated with a Balloon. Recommendations * Dual antiplatelet therapy with aspirin and plavix for atleast 1 year. * High intensity statin therapy. * Outpatient cardiology follow up in 2 weeks. Interventional RX Recommendation: PCI w/o planned CABG Diagnostic RX Recommendation: PCI w/o planned CABG Anticoagulation: Heparin LV EDP: 15 mmHg Left Ventriculography Findings: * LV gram was not performed. LVEDP was 15 mmHg. Pressures Phase:Rest AO : / ( 0 ) @ 9:40:00 AM 118 / 102 ( 99 ) @ 9:51:00 AM 132 / 86 ( 108 ) @ 9:55:00 AM 149 / 78 ( 107 ) @ 10:01:00 AM 147 / 79 ( 106 ) @ 10:01:00 AM 144 / 78 ( 103 ) @ 10:01:00 AM LV : 147 / 4 / 15 @ 10:01:00 AM 143 / 4 / 15 @ 10:01:00 AM Valves Phase:DefaultPhase AV : 0.0 @ 10:12:12 AM AV Mean Gradient: 0.0 @ 10:12:12 AM 0.0 @ 10:12:12 AM Clinical Evaluation EBL: 5mL-10mL Procedural Details Procedure Consent Obtained. Pre-Procedure Time Out. Identified patient by full name and date of as verbalized by the patient/guarantor. Does the consent match the physician's order: Yes. Accurate & Complete Informed Consent: Yes. Inpatient/Outpatient History & Physical on Chart: Yes. If H&P is completed, is and addenduem needed: No; If yes, is the addendum complete: N/A. Visualize and Verify Site with Patient/Guarantor: N/A. Relevant Radiology Images available: N/A. The risks, benefits, and alternatives of sedation and/or procedure were discussed by physician. The patient agrees to continue. Procedure started. [facility] Clinical Fraility Score: 4: Vulnerable. Traffic Maintenance Supervisor Indications: Worsening Angina. Chest Pain Symptom Assessment. Correct patient, site and procedure confirmed by cath team. Current diagnosis: Unstable angina. PERRLA. Strong, equal hand wellness spa manager bilaterally. Lungs clear x 5 lobes. IV Site on Arrival: 20 gauge in the right upper arm. IV Fluids: 0.9% NaCl at KVO. 0 mL infused prior to laboratory mechanic helper. IV Fluids: Nitro drip at 10 mcg/min. Continued from the floor. Pre Procedural Pulses: bilateral posterior tibial was Doppled. Pre Procedural Pulses: bilateral dorsalis pedis was Doppled. Pre Procedural Pulses: bilateral radial was 1+. Oxygen started at 3liters/min via nasal canula. bilateral groins was prepped with chloroprep then draped in the usual sterile fashion. Baseline sample Acquired. HR: 0 BPM. Physician notified. Physician arrived. Physician scrubbed in. Patient's family unavailable. Current Diagnosis : Unstable angina. Admit Source: In Patient. Immediate Pre-Procedure Time Out. Correct Patient: Yes; Correct Procedure: Yes; Correct Site: Yes; Correct Patient Position: Yes; Correct Supplies: Yes; Dried Flammable Prep: Yes; Blood Products Available: N/A;. Lidocaine 1% infiltrated to the right groin. Arterial access obtained with micropuncture set. A 5 emirati JL4 catheter in over wire. Multiple views taken of left coronary artery. Catheter removed over the standard wire. A 5 emirati JR4 catheter in over wire. Multiple views taken of right coronary artery. Dr Burch here to discuss findings of angiogram. Catheter removed over the standard wire. A 5 emirati Angled Pig catheter in over wire. EDP Sample taken: LV 147/4,15; HR: 73 BPM; SpO2: 100%. Pullback taken: LV 143/4,15; AO 149/78(107); Mean: 0mmHg, Peak to Peak: 0mmHg, SEP: 4sec/min; HR: 69 BPM; SpO2: 100%. Catheter removed over the wire. Dr Eugene scrubbed out. Dr Burch scrubbed in. 6 emirati XB 3.5 guide catheter was inserted over the wire. Unable to seae guide seated in the LCS. Guide out over the wire. 6 emirati XB 3 guide catheter was inserted over the wire. Guide seated in the LCS. Runthrough guidewire was advanced through the guide catheter to lesion in the Ostial Circ. Inflation number : 1 A MDT NC EUPHORA RX 2.46O37JH BALLOON was prepped and advanced across the Prox CX , then inflated to 12 ROSIE for 0:07 seconds. Inflation number: 2 The MDT NC EUPHORA RX 2.51K42IU BALLOON was reinflated across the Prox CX, to 12 ROSIE for 0:12 seconds. Inflation number: 3 The MDT NC EUPHORA RX 2.52L85IH BALLOON was reinflated across the Prox CX, to 12 ROSIE for 0:10 seconds. Inflation number: 4 The MDT NC EUPHORA RX 2.79V59UF BALLOON was reinflated across the Prox CX, to 12 ROSIE for 0:08 seconds. Balloon out. IVUS inserted. IVUS performed of the ostial left circumflex artery. IVUS catheter out. Runthrough guidewire was advanced through the guide catheter down the mid LAD. Inflation Number : 5 A MDT R KORIN 3.0X15 OLENA -Lot Number# [id number] EXP 01/06/27 was prepped and advanced across the Prox CX. The stent was deployed at 12 ROSIE for 0:33 seconds. Results checked. Stent balloon out over wire. Inflation number : 6 A MDT NC EUPHORA RX 3.04V58PY BALLOON was prepped and advanced across the Prox CX , then inflated to 20 ROSIE for 0:15 seconds. Inflation number: 7 The MDT NC EUPHORA RX 3.89U37ZU BALLOON was reinflated across the Prox CX, to 18 ROSIE for 0:10 seconds. Balloon out. Inflation number : 1 A MDT NC EUPHORA RX 2.84X58KK BALLOON was prepped and advanced across the Mid CX , then inflated to 18 ROSIE for 0:13 seconds. Inflation number: 2 The MDT NC EUPHORA RX 2.64G26FQ BALLOON was reinflated across the Mid CX, to 20 ROSIE for 0:12 seconds. Results checked. Balloon out. Wire out. Results checked. Guide catheter out over the wire. ACT drawn. Results 331 seconds. Therapeutic limits - pre-heparin administration 90-150 seconds and monitoring heparin during a vascular procedure >250 seconds. 6 emirati JR 4 guide catheter was inserted over the wire. Guide seated in the RCA. IFR guidewire was advanced through the guide catheter to lesion in the mid RCA. Normalized proximal to lesion. IFR wire advanced across the lesion in the Mid RCA. IFR SPOT 0.85 IFR PULLBACK 0.86. Inflation number : 1 A MDT NC EUPHORA RX 4.72S19LI BALLOON was prepped and advanced across the Mid RCA , then inflated to 14 ROSIE for 0:13 seconds. Inflation number: 2 The MDT NC EUPHORA RX 4.51H81QI BALLOON was reinflated across the Mid RCA, to 14 ROSIE for 0:07 seconds. Inflation number: 3 The MDT NC EUPHORA RX 4.65S25YN BALLOON was reinflated across the Mid RCA, to 14 ROSIE for 0:05 seconds. Results checked. Balloon out. Results checked. Wire out. Results checked. Physician review of films. Guide catheter out. ACT drawn. Results 400 seconds. Therapeutic limits - pre-heparin administration 90-150 seconds and monitoring heparin during a vascular procedure >250 seconds. A Right femoral angiogram was performed to determine safe placement of closure device. Physician scrubbed out. A Suture was successful obtaining hemostatsis at the Right Femoral artery insertion site. Sheath(s) sutured into position with 2-0 silk and sterile 4x4's and Op-site applied over the site. No oozing or signs and symptoms of hematoma noted. Arterial sheath flushed and connected to tranducer and pressure bag with heparinized saline. Post Procedure: Pulses reassessed and unchanged. PERRLA. Strong, equal hand wellness spa manager bilaterally. No VTE prophylaxis required. Medication's Wasted: Lidocaine 1% = 10 ml , Versed =1 mg , Heparin = 4000 units , Fentanyl = 25 mcg. Total IV fluids: 753 mL. Fluoro: 22:07. Contrast type used: Omnipaque 300 mgI/mL, 500 mL bottle. [id number]. Post-op diagnosis: Severe Ostial Left Circumflex stenosis and Mid RCA in stent restenosis; Status post OLENA TO CIRC AND Balloon angioplasty to mid RCA. Estimated blood loss: 5mL-10mL. Responsiveness - Normal response to verbal stimuli; alert and oriented, PERRLA. Airway - Unaffected, no intervention required; spontaneous ventilation. Circulation: W/N/L, pulses unchanged. Nausea/Vomiting: No. Procedure completed. Patient transferred by bed to 1st floor. Vital chart was stopped. Access Site Site: Right Femoral artery Sheath Size: 6 Fr Hemostasis Method: Suture Hemostasis Success: Successful Procedure Medications Start: 8:39 AM Stop: 8:39 AM Medication: Versed Amount: 1 mg Route: I.V. Start: 8:39 AM Stop: 8:39 AM Medication: Fentanyl Amount: 50 mcg Route: I.V. Start: 9:06 AM Stop: 9:06 AM Medication: Heparin Amount: 6000 units Route: I.V. Start: 9:31 AM Stop: 9:31 AM Medication: Heparin Amount: 1000 units Route: I.V. Start: 9:53 AM Stop: 9:53 AM Medication: Fentanyl Amount: 25 mcg Route: I.V. Start: 10:00 AM Stop: 10:00 AM Medication: Plavix Amount: 300 mg Route: P.O. I, the attending physician, have reviewed and verified all procedure medications. Yes, all medications given per verbal order History/Risk Factors Hypertension: Yes Dyslipidemia: No Peripheral Arterial Disease (PAD): No Myocardial Infarction (PA): No Obesity: No Renal Disease: Yes Tobacco Use: Current/Recent(w/in 1 year) Dialysis: Current Prior Interventions PCI: Yes CABG: No Valve Surgery: No Date of PCI: 03/27/2024 Report Signatures Interventional Workflow Finalized by Riccardo Burch MD on 09/20/2024 05:39 PM Diagnostic Workflow Finalized by Dr Gilberto Eugene MD [facility] on 09/09/2024 02:12 PM
--- NOTE | 2024-09-09 07:26 | P.PN_ITS ---
Subjective 2 Medications: Medication Review Details: Current Medications Albuterol/Ipratropium (Ipratropium-Albuterol 3 Ml Neb) 3 ml INHALATION Q4H PRN PRN Reason: SHORTNESS OF BREATH Alprazolam (Alprazolam 0.5 Mg Tablet) 0.5 mg PO TID PRN PRN Reason: ANXIETY Last Admin: 09/09/24 00:10 Dose: 0.5 mg Alteplase, Recombinant (Alteplase 1 Mg/Ml Sdv 2 Ml) 2 mg INTRACATH PRN PRN PRN Reason: DIALYSIS USE ONLY Aspirin (Aspirin 81 Mg Ec Tablet) 81 mg PO QAM [facility] Last Admin: 09/09/24 06:17 Dose: 81 mg Atorvastatin Calcium (Atorvastatin 40 Mg Tablet) 40 mg PO BEDTIME [facility] Last Admin: 09/08/24 21:51 Dose: 40 mg Bumetanide (Bumetanide 1 Mg Tablet) 0 mg PO DAILY [facility] Last Admin: 09/08/24 08:17 Dose: 1 mg Carvedilol (Carvedilol 3.125 Mg Tablet) 3.125 mg PO BID [facility] Last Admin: 09/08/24 17:35 Dose: 3.125 mg Clopidogrel Bisulfate (Clopidogrel 75 Mg Tablet) 75 mg PO DAILY [facility] Last Admin: 09/08/24 08:17 Dose: 75 mg Escitalopram Oxalate (Escitalopram 10 Mg Tablet) 10 mg PO DAILY [facility] Last Admin: 09/08/24 08:17 Dose: 10 mg Gabapentin (Gabapentin 100 Mg Capsule) 100 mg PO TID [facility] Last Admin: 09/08/24 21:51 Dose: 100 mg Glucagon (Glucagon 1 Mg/Ml Kit 1 Ml) 1 mg IM ONCE PRN; Protocol PRN Reason: Adult Acute Hypoglycemia Nursing Prot. Heparin Sodium (Porcine) (Heparin 5,000 Unit/Ml Inj 1 Ml) 0 unit IVP PRN PRN; Protocol PRN Reason: Heparin Weight Based Protocol -Subsequent Bolus Heparin Sodium (Porcine) (Heparin, Porcine 1,000 Unit/Ml Inj 10 Ml) 1,000 unit IV PRN PRN PRN Reason: clotting Heparin Sodium/Sodium Chloride (Heparin Drip) 25,000 unit in 500 mls @ 0 mls/hr IV CONT SHAY; Protocol Last Titration: 09/09/24 01:11 Dose: 15.51 unit/kg/hr, 19 mls/hr Sodium Chloride (Sodium Chloride 0.9%) 1,000 mls @ 0 mls/hr IV .Q0M PRN PRN Reason: hypotension or symptomatic Albumin Human (Albumin) 12.5 gm in 50 mls @ 60 mls/hr IV PRN PRN PRN Reason: Hypotension and/or symptomatic Last Infusion: 09/08/24 02:18 Dose: Infused Dextrose (D5w) 500 mls @ 0 mls/hr IV ONCE PRN; Protocol PRN Reason: Adult Acute Hypoglycemia Prot Dextrose (D10w) 125 mls @ 750 mls/hr IV PRN PRN; Protocol PRN Reason: Adult Acute Hypoglycemia Nursing Protocol Dextrose (D10w) 250 mls @ 1,000 mls/hr IV PRN PRN; Protocol PRN Reason: Adult Acute Hypoglycemia Nursing Protocol Nitroglycerin/Dextrose (Nitroglycerin Drip) 50 mg in 250 mls @ 0 mls/hr IV .Q0M [facility]; Protocol Last Titration: 09/09/24 05:41 Dose: 10 mcg/min, 3 mls/hr Insulin Glargine (Insulin Glargine 100 Units/1 Ml) 5 unit SUBCUT QPM [facility] Last Admin: 09/08/24 20:00 Dose: Not Given Insulin Human Lispro (Insulin Lispro 100 Unit/1 Ml) 0 unit SUBCUT WM&BEDTIME [facility]; Protocol Last Admin: 09/08/24 21:02 Dose: Not Given Midodrine (Midodrine 5 Mg Tablet) 10 mg PO TID PRN PRN Reason: hypotension Last Admin: 09/07/24 14:15 Dose: 10 mg Morphine Sulfate (Morphine 4 Mg/Ml Sdv 1 Ml) 2 mg IVP Q4H PRN PRN Reason: SEVERE PAIN Last Admin: 09/09/24 03:55 Dose: 2 mg Ondansetron HCl (Ondansetron 2 Mg/Ml Sdv 2 Ml) 4 mg IVP Q8H PRN PRN Reason: vomiting, or N/V if npo Last Admin: 09/08/24 17:36 Dose: 4 mg Sevelamer Carbonate (Sevelamer 800 Mg Tablet) 800 mg PO TID [facility] Last Admin: 09/08/24 21:51 Dose: 800 mg Vitals/I&O/Wt Last Vital Signs Temp 97.6 F 09/09/24 07:15 Pulse 70 09/09/24 07:15 Resp 14 09/09/24 07:15 BP 204/101 09/09/24 07:15 Pulse Ox 93 09/09/24 07:15 O2 Del Method Room Air 09/09/24 07:15 09/08/24 09/09/24 09/09/24 22:59 06:59 14:59 Intake Total 1046.6 / 1285.691 137.767 / 1423.458 Output Total 3000 / 3000 100 / 3100 Balance -1953.4 / -1714.309 37.767 / -1676.542 Weight last 48 hrs Weight 133 lb 4.8 oz Weight 140 lb 14.006 oz Weight 138 lb 14.4 oz Weight 143 lb 4.807 oz Weight 146 lb Physical Exam 2 Narrative: GENERAL: The patient is alert and oriented times three. Not in any acute distress. HEENT: Moderate pallor. No icterus or lymphadenopathy.Oral cavity: There are no mucous membrane lesions. NECK: Trachea appears to be central. No masses noted. No JVD or thyromegaly appreciated. RESPIRATORY: Chest is symmetrical. No intercostals muscle retraction or any accessory muscle activation. There is no chest wall tenderness. Breath sounds are heard bilaterally. No rales or rhonchi heard. No evidence of any consolidation. BREASTS: Deferred. HEART: The heart sounds are normal. No S3 or S4. No significant murmurs. No pericardial rub ABDOMEN: No vessel pulsations or distention. No tenderness. No organomegaly appreciated. Bowel sounds are normally heard. : Deferred. RECTAL: Deferred. LYMPHATIC: No lymphadenopathy noted in the neck. EXTREMITIES: No edema or cyanosis. No clubbing. MUSCULOSKELETAL: No acute joint deformities or swelling SKIN: There are no significant rashes or ecchymosis NEUROPSYCHIATRIC: The patient is alert and oriented x3. Appears to be in a good mood. No tremors or rigidity noted. Data 09/09/24 00:19 09/09/24 00:19 A&P Assessment and plan (1) Atherosclerotic heart disease of [place] coronary artery with unstable angina pectoris: This patient has a history of multiple PCI's. Possibility of restenosis of the intervened lesions or progression of disease in the other vessels are considerations. The EKG is unremarkable. Cardiac enzymes are chronically elevated. In view of her ongoing chest pains, it may be appropriate to go ahead and do a repeat cardiac catheterization to evaluate the coronary status.For the time being, patient may be continued on the IV heparin and other current medications She is scheduled to have the angiogram today. Based on the angiogram findings, further recommendations will be made Qualifiers: [place] vs. transplanted heart: [place] heart Qualified Code(s): I25.110 - Atherosclerotic heart disease of [place] coronary artery with unstable angina pectoris (2) Elevated troponin: The enzymes are chronically elevated. This could be related to the the chronic kidney disease. No significant a delta so far. However the patient has severe underlying coronary disease requiring multiple PCI's. The echocardiogram reveals normal LV size with diminished ejection fraction of 47%. Compared to the previous echocardiogram, this is a significant drop. Possibility of restenosis or progression of disease in the other vessels are strong considerations. (3) ESRD (end stage renal disease): Patient appears to have fluid overload. The nephrology service is recommending hemodialysis. Patient had hemodialysis yesterday. She had an uncomplicated course. (4) Uncontrolled type 1 diabetes mellitus: The blood sugar seems to be in the normal range at this time. May continue on the current management. Qualifiers: Glycemic state: with hyperglycemia Qualified Code(s): E10.65 - Type 1 diabetes mellitus with hyperglycemia (5) Hyperlipidemia: May continue on the current medications. Qualifiers: Hyperlipidemia type: mixed hyperlipidemia Qualified Code(s): E78.2 - Mixed hyperlipidemia Plan Because of the patient's ongoing chest pain, it may be appropriate to go ahead with a cardiac catheterization to further evaluate the coronary status and decide on further management. This was discussed with the patient in detail. The risk of bleeding, hematoma, vascular injury, myocardial infarction, myocardial perforation, malignant cardiac arrhythmias ,CVA, renal failure and other concomitant complications were explained in detail. Patient understood this well and consented to proceed. Because of the patient's chronic kidney disease and multiple other medical problems, she carries a relatively high risk. Scheduled to have the angiogram today. Based on the findings, further recommendations will be made. May continue on the current management for the time being PDMP PDMP Reviewed: Not Reviewed Attestations 2 Medical Necessity Statement*: Patient requires continued hospital stay for close monitoring and further management Coding Level of Care Code 89845 Diagnoses Atherosclerosis of k[place] coronary artery of [place] heart with unstable angina pectoris I25.110 [place] vs. transplanted heart: [place] heart Elevated troponin R77.8 ESRD (end stage renal disease) N18.6 Uncontrolled type 1 diabetes mellitus with hyperglycemia E10.65 Glycemic state: with hyperglycemia Mixed hyperlipidemia E78.2 Hyperlipidemia type: mixed hyperlipidemia
--- NOTE | 2024-09-09 07:51 | P.PN_ITS ---
Subjective 2 Subjective: still having chest pain. bp elevated. + benavides, no visual changes. no sob at rest, + edema, nausea Medications: Reviewed: Yes Medication Review Details: Current Medications Albuterol/Ipratropium (Ipratropium-Albuterol 3 Ml Neb) 3 ml INHALATION Q4H PRN PRN Reason: SHORTNESS OF BREATH Alprazolam (Alprazolam 0.5 Mg Tablet) 0.5 mg PO TID PRN PRN Reason: ANXIETY Last Admin: 09/09/24 00:10 Dose: 0.5 mg Alteplase, Recombinant (Alteplase 1 Mg/Ml Sdv 2 Ml) 2 mg INTRACATH PRN PRN PRN Reason: DIALYSIS USE ONLY Aspirin (Aspirin 81 Mg Ec Tablet) 81 mg PO QAM [facility] Last Admin: 09/09/24 06:17 Dose: 81 mg Atorvastatin Calcium (Atorvastatin 40 Mg Tablet) 40 mg PO BEDTIME [facility] Last Admin: 09/08/24 21:51 Dose: 40 mg Bumetanide (Bumetanide 1 Mg Tablet) 0 mg PO DAILY [facility] Last Admin: 09/08/24 08:17 Dose: 1 mg Carvedilol (Carvedilol 3.125 Mg Tablet) 3.125 mg PO BID [facility] Last Admin: 09/08/24 17:35 Dose: 3.125 mg Clopidogrel Bisulfate (Clopidogrel 75 Mg Tablet) 75 mg PO DAILY [facility] Last Admin: 09/08/24 08:17 Dose: 75 mg Escitalopram Oxalate (Escitalopram 10 Mg Tablet) 10 mg PO DAILY [facility] Last Admin: 09/08/24 08:17 Dose: 10 mg Gabapentin (Gabapentin 100 Mg Capsule) 100 mg PO TID [facility] Last Admin: 09/08/24 21:51 Dose: 100 mg Glucagon (Glucagon 1 Mg/Ml Kit 1 Ml) 1 mg IM ONCE PRN; Protocol PRN Reason: Adult Acute Hypoglycemia Nursing Prot. Heparin Sodium (Porcine) (Heparin 5,000 Unit/Ml Inj 1 Ml) 0 unit IVP PRN PRN; Protocol PRN Reason: Heparin Weight Based Protocol -Subsequent Bolus Heparin Sodium (Porcine) (Heparin, Porcine 1,000 Unit/Ml Inj 10 Ml) 1,000 unit IV PRN PRN PRN Reason: clotting Heparin Sodium/Sodium Chloride (Heparin Drip) 25,000 unit in 500 mls @ 0 mls/hr IV CONT [facility]; Protocol Last Titration: 09/09/24 01:11 Dose: 15.51 unit/kg/hr, 19 mls/hr Sodium Chloride (Sodium Chloride 0.9%) 1,000 mls @ 0 mls/hr IV .Q0M PRN PRN Reason: hypotension or symptomatic Albumin Human (Albumin) 12.5 gm in 50 mls @ 60 mls/hr IV PRN PRN PRN Reason: Hypotension and/or symptomatic Last Infusion: 09/08/24 02:18 Dose: Infused Dextrose (D5w) 500 mls @ 0 mls/hr IV ONCE PRN; Protocol PRN Reason: Adult Acute Hypoglycemia Prot Dextrose (D10w) 125 mls @ 750 mls/hr IV PRN PRN; Protocol PRN Reason: Adult Acute Hypoglycemia Nursing Protocol Dextrose (D10w) 250 mls @ 1,000 mls/hr IV PRN PRN; Protocol PRN Reason: Adult Acute Hypoglycemia Nursing Protocol Nitroglycerin/Dextrose (Nitroglycerin Drip) 50 mg in 250 mls @ 0 mls/hr IV .Q0M [facility]; Protocol Last Titration: 09/09/24 05:41 Dose: 10 mcg/min, 3 mls/hr Insulin Glargine (Insulin Glargine 100 Units/1 Ml) 5 unit SUBCUT QPM [facility] Last Admin: 09/08/24 20:00 Dose: Not Given Insulin Human Lispro (Insulin Lispro 100 Unit/1 Ml) 0 unit SUBCUT WM&BEDTIME [facility]; Protocol Last Admin: 09/08/24 21:02 Dose: Not Given Midodrine (Midodrine 5 Mg Tablet) 10 mg PO TID PRN PRN Reason: hypotension Last Admin: 09/07/24 14:15 Dose: 10 mg Morphine Sulfate (Morphine 4 Mg/Ml Sdv 1 Ml) 2 mg IVP Q4H PRN PRN Reason: SEVERE PAIN Last Admin: 09/09/24 03:55 Dose: 2 mg Ondansetron HCl (Ondansetron 2 Mg/Ml Sdv 2 Ml) 4 mg IVP Q8H PRN PRN Reason: vomiting, or N/V if npo Last Admin: 09/08/24 17:36 Dose: 4 mg Sevelamer Carbonate (Sevelamer 800 Mg Tablet) 800 mg PO TID [facility] Last Admin: 09/08/24 21:51 Dose: 800 mg Vitals/I&O/Wt Last Vital Signs Temp 97.6 F 09/09/24 07:15 Pulse 70 09/09/24 07:15 Resp 14 09/09/24 07:15 BP 204/101 09/09/24 07:15 Pulse Ox 93 09/09/24 07:15 O2 Del Method Room Air 09/09/24 07:15 09/08/24 09/09/24 09/09/24 22:59 06:59 14:59 Intake Total 1046.6 / 1285.691 137.767 / 1423.458 Output Total 3000 / 3000 100 / 3100 Balance -1953.4 / -1714.309 37.767 / -1676.542 Weight last 48 hrs Weight 60.464 kg Weight 63.9 kg Weight 63.004 kg Weight 65 kg Weight 66.224 kg Physical Exam 2 Narrative: Vital signs noted and elevated BP. The patient is in bed no apparent distress she has a swollen face on a nitro drip. HEENT normocephalic atraumatic and swollen. Lungs dullness bilaterally heart regular positive S1-S2 She has right chest wall tunneled dialysis catheter. Abdomen is soft nontender nondistended positive bowel sound. Extremity 1+ edema poor distal pulses right foot second toe amputation Neuro awake alert oriented x 3 normal pulses Data 09/09/24 00:19 09/09/24 00:19 A&P Assessment and plan (1) End stage renal disease on dialysis: 39-year-old lady history of ESRD diabetes htn. Chart reviewed Case reviewed. 1. ESRD -s/p HD last 2 days. repeat HD tomorrow 2. Elevated troponins discussed with Dr. Eugene plan will be for Mental Hygienist today. Thepatient has known coronary artery disease and has multiple stents. 3. Diabetic control. 4. Hypertension -remains on a nitro drip. add CCB 5. Anemia hemoglobin is stable. very high ferritin 1525 tsat 87%- please do not give any iron 6. TSH=5 7. Check vitamin D. - PTH 217. acceptable for ESRD The patient was seen and examined with the aid of a nurse using audiovisual equipment. The patient consents to telehealth and hemodialysis. Plan Hemodialysis tomorrow. cath today. treat her bp. she is on a nitro drip. PDMP PDMP Reviewed: Not Reviewed Attestations 2 Medical Necessity Statement*: CP, htn emergency Time Spent in Patient Care: 16 - 35 minutes (>than 50% of time sp ent in counselling and/or direct pt care on unit) . Coding Level of Care Code Acute Code for Chg Fwd Diagnoses End stage renal disease on dialysis N18.6; Z99.2
--- NOTE | 2024-09-09 07:56 | PC.NURSE ---
Patient returned to unit at 0710 from mobile home laborer, mobile home laborer stopped her heparin drip, this is to remain stopped until she returns to mobile home laborer today, per mobile home laborer.
--- NOTE | 2024-09-09 08:28 | P.PN_ITS ---
Subjective 2 Subjective: Chest pain with some improvement today. Blood pressure elevated this morning. Vitals/I&O/Wt Last Vital Signs Temp 97.6 F 09/09/24 07:15 Pulse 70 09/09/24 07:15 Resp 14 09/09/24 07:15 BP 204/101 09/09/24 07:15 Pulse Ox 93 09/09/24 07:15 O2 Del Method Room Air 09/09/24 07:15 09/08/24 09/09/24 09/09/24 22:59 06:59 14:59 Intake Total 1046.6 / 1285.691 246.700 / 1532.391 Output Total 3000 / 3000 100 / 3100 Balance -1953.4 / -1714.309 146.700 / -1567.609 Weight last 48 hrs Weight 60.464 kg Weight 63.9 kg Weight 63.004 kg Weight 65 kg Weight 66.224 kg Physical Exam 2 Const: COMMON NORMALS: patient oriented x3 and alert GENERAL APPEARANCE: c ooperative ORIENTATION/CONSCIOUSNESS: Yes awake HENMT: COMMON NORMALS: oropharynx normal Neck/C-Spine: COMMON NORMALS: no JVD Chest: OTHER: Dialysis port right chest. Resp: COMMON NORMALS: normal respiratory effort and clear to auscultation bilaterally AUSCULTATION: clear to auscultation bilaterally Cardio: COMMON NORMALS: no JVD, regular rhythm, S1 normal heart sound present, S2 normal heart sound present and No murmurs present (Cardio) RHYTHM: regular rhythm HEART SOUNDS: S1 normal heart sound present and S2 normal heart sound present GI: COMMON NORMALS: Normal to inspection, nondistended, normoactive bowel sounds present, Soft to palpation and non-tender PALPATION: Yes Soft to palpation Extremity: COMMON NORMALS: no joint enlargement and no pedal edema N ARRATIVE EXTREMITY EXAM: AV graft proximal left medial arm Neuro: COMMON NORMALS: patient oriented x3 and moves all extremities S ENSORIUM/ORIENTATION: Yes alert Skin: COMMON NORMALS: no rashes or lesions noted GENERAL SKIN EXAM: no rashes or lesions noted Data 09/09/24 00:19 09/09/24 00:19 A&P Assessment and plan (1) Chest pain: Assessed by coronary angiography today per discussion with sales representative womens health with finding of high-grade ostial circumflex lesion requiring PCI for management of ischemic heart disease with unstable angina NSTEMI. Reviewed cardiology note. Noted hematuria on UA. Monitor for risk of bleeding with DAPT, anticoagulation. Reviewed hemoglobin, platelets, PTT. Will need to follow-up with urology. Continue to monitor on telemetry with risk of arrhythmia, reperfusion injury after PCI. Reassess renal function. Continue to optimize hypertension. Wean off nitroglycerin drip. Continue volume optimization. She reports recently her blood pressure has been running softer than in the past, at home blood pressure was 105/50. She has continued taking all her medications. She did not take nitroglycerin at home as she states lives 30 minutes away and was worried that trying things before coming to the hospital may delay her arrival. Discussed with nursing, director of casework services. Qualifiers: Chest pain type: precordial pain Qualified Code(s): R07.2 - Precordial pain Plan Acute decompensated diastolic congestive heart failure. Continue dialysis. Additional management of ischemic heart disease as above. Continue optimization of volume status, hemodialysis. Reassess intake and output, volume status. Hematuria: Will need follow-up with urology. Reviewed CT abdomen pelvis from April, without kidney lesions or stones at that time. Does have history of smoking. Chronic diarrhea: Reports having had loose stools for a long time, without blood, nonpainful. Without recent changes. Will benefit from follow-up with primary provider. HTN: Resumed on carvedilol, and started on amlodipine by nephrology after angiogram. Improvement in blood pressure. Monitor blood pressures. COPD: not in exacerbation. Breathing treatments as needed. DM: Reviewed POC glucose. Conitnue Lantus. Sliding scale insulin. POC glucose monitoring. Anemia: Hb with improvement with volume status optimization. On admit slightly lower than usual, possible dilutional 2/2 to fluid overload. Repeat blood counts. Anxiety Other medical problems PDMP PDMP Reviewed: Not Reviewed Attestations 2 Medical Necessity Statement*: Continue admission for assessment management following unstable angina, NSTEMI, post PCI care, monitoring for reperfusion injury, continued treatment of decompensated congestive heart failure, volume optimization in a lady with ESRD on hemodialysis. Diagnoses Precordial pain R07.2 Chest pain type: precordial pain
--- NOTE | 2024-09-09 08:34 | PC.NURSE ---
Patient left unit to laborer wood preserving plant at 0830.
--- NOTE | 2024-09-09 09:05 | PM.OP ---
Operative Report Date of procedure: September 09, 2024 Surgeon: Gilberto Eugene MD Procedure: This patient underwent left catheterization of the left and right coronary angiogram today. Patient was found to have a normal left main. Patent stents in the LAD and RCA. High-grade around 98% ostial circumflex lesion. LVEDP of 15 mmHg. For further management of her condition, PCI of the ostial circumflex lesion was thought to be appropriate. Dr. Oliveraim to call for further management of this patient at this point.
--- NOTE | 2024-09-09 10:29 | PC.NURSE ---
Patient returned to CSU from incinerator plant laborer at 1020, with a right femoral sheath and pressure bag.
[2024-09-09] MEDS: sevelamer 800 mg Tablet PO ×3 (10:43→20:45)
[2024-09-09] MEDS: amlodipine 5 mg Tablet PO (10:44)
[2024-09-09] MEDS: clopidogrel 75 mg Tablet PO (10:44)
[2024-09-09] MEDS: bumetanide 1 mg Tablet PO (10:44)
[2024-09-09] MEDS: carvedilol 6.25 mg Tablet PO ×2 (10:44→17:06)
[2024-09-09] MEDS: escitalopram 10 mg Tablet PO (10:44)
[2024-09-09] MEDS: gabapentin 100 mg Capsule PO ×3 (10:44→20:45)
--- NOTE | 2024-09-09 11:22 | PC.SOCIAL ---
IMM Updated Updated pt's mother on IMM. No questions voiced. Provided pt a copy. Initialed, dated, & timed a copy & placed in chart.
[2024-09-09 11:59] LABS: Glucose Point of Care 92 mg/dL (70-110)
[2024-09-09 12:56] LABS: Partial Thromboplastin Time 105.9 SECONDS (23.9-36.7)
[2024-09-09 16:49] LABS: Glucose Point of Care 146 mg/dL (70-110)
[2024-09-09] MEDS: insulin glargine 100 units/1 mL 5 UNIT SUBCUT (17:06)
[2024-09-09] MEDS: insulin lispro 100 unit/1 mL SUBCUT ×2 (17:06→21:54)
--- NOTE | 2024-09-09 18:16 | PC.NURSE ---
Patient's right femoral sheath is pulled at 1733. Hemostasis is obtained immediately. Manual pressure is held for 20 minutes. No hematoma is noted. A dressing of 4x4 and tegaderm is applied. Patients vitals remained stable throughout. Patient is reeducated to not move her right leg or sit up for the next 6 hours. She can get up at midnight. She states understanding.
[2024-09-09] MEDS: atorvastatin 40 mg Tablet PO (20:45)
[2024-09-09 20:52] LABS: Glucose Point of Care 195 mg/dL (70-110)
[2024-09-10] VITALS (24 sets, daily range): BP systolic 103–176; BP diastolic 47–86; PULSE 55–74; RESP 0–21; TEMP 36.4–37; O2SAT 92–100
[2024-09-10] MEDS: morphine 4 mg/mL SDV 1 mL 2 MG IVP ×4 (02:25→19:47)
[2024-09-10 03:46] LABS: Basophils # 0.1 10^3/uL (0.0-0.1); Basophils % 1.3 %; Eosinophils # 0.3 10^3/uL (0.0-0.8); Eosinophils % 5.4 %; Hematocrit 27.3 % (36-47); Lymphocytes # 1.5 10^3/uL (0.8-4.8); Lymphocytes % 30.4 %; Mean Corpuscular HGB Conc 31.1 g/dL (30-55); Mean Corpuscular Hemoglobin 30.2 pg (27-33); Mean Corpuscular Volume 97.2 fl (85-98); Mean Platelet Volume 10.7 fL (7.4-10.4); Monocytes # 0.6 10^3/uL (0.2-0.9); Monocytes % 13.3 %; Neutrophils # 2.37 10^3/uL (1.8-7.7); Neutrophils % 49.4 %; Nucleated Red Blood Cells % 0 %; Platelet Count 134 10^3/cmm (157-399); Red Blood Count 2.81 10^6/uL (3.85-5.65); Red Cell Distribution Width 15.3 % (12.1-15.1)
[2024-09-10 03:58] LABS: Alanine Aminotransferase 8 U/L (0-33); Albumin Level 3.3 g/dL (3.5-5.2); Alkaline Phosphatase 122 U/L (35-105); Anion Gap 16.7 (5-19); Aspartate Amino Transferase 12 U/L (0-32); Blood Urea Nitrogen 33 mg/dL (6-20); Calcium 8.3 mg/dL (8.5-10.5); Carbon Dioxide 26 mmol/L (22-29); Chloride 96 mmol/L (98-107); Globulin 3.7 g/dL (1.3-4.6); Glomerular Filtration Rate 9.1 mL/min (90-130); Glucose 116 mg/dL (65-115); Osmolality Calculated 286 mOsm/kg (285-295); Potassium 4.7 mmol/L (3.5-5.1); Sodium 134 mmol/L (136-145); Total Bilirubin 0.2 mg/dL (0.15-1.2)
[2024-09-10 04:03] LABS: Magnesium 2.1 mg/dL (1.7-2.3); Phosphorus 6.1 mg/dL (2.5-4.5)
[2024-09-10] MEDS: aspirin 81 mg EC Tablet PO (06:04)
[2024-09-10 06:22] LABS: Glucose Point of Care 234 mg/dL (70-110)
[2024-09-10] MEDS: carvedilol 6.25 mg Tablet PO (08:17)
[2024-09-10] MEDS: insulin lispro 100 unit/1 mL SUBCUT ×2 (08:17→21:07)
[2024-09-10] MEDS: clopidogrel 75 mg Tablet PO (08:17)
[2024-09-10] MEDS: sevelamer 800 mg Tablet PO ×3 (08:17→21:07)
[2024-09-10] MEDS: escitalopram 10 mg Tablet PO (08:18)
[2024-09-10] MEDS: amlodipine 5 mg Tablet PO (08:18)
[2024-09-10] MEDS: gabapentin 100 mg Capsule PO ×3 (08:18→21:07)
[2024-09-10] MEDS: bumetanide 1 mg Tablet PO (08:18)
--- NOTE | 2024-09-10 08:41 | PM.PN ---
Subjective Subjective: Patient underwent a left heart catheterization with coronary angiogram yesterday. She was found to have a critical lesion at the ostium of the left circumflex artery for which she underwent PCI by Dr. Burch. She did not have any chest pain since then. She was complaining of right groin pain. This morning. An arterial Doppler examination revealed no evidence of any hematoma or aneurysm. She also was found to be hypotensive during dialysis with a drop in the hemoglobin as well. A CTA of the abdomen pelvis revealed no evidence of any retroperitoneal hematoma. Medications: Medication Review Details: Current Medications Albuterol/Ipratropium (Ipratropium-Albuterol 3 Ml Neb) 3 ml INHALATION Q4H PRN PRN Reason: SHORTNESS OF BREATH Alprazolam (Alprazolam 0.5 Mg Tablet) 0.5 mg PO TID PRN PRN Reason: ANXIETY Last Admin: 09/09/24 20:45 Dose: 0.5 mg Alteplase, Recombinant (Alteplase 1 Mg/Ml Sdv 2 Ml) 2 mg INTRACATH PRN PRN PRN Reason: DIALYSIS USE ONLY Amlodipine Besylate (Amlodipine 5 Mg Tablet) 5 mg PO DAILY [facility] Last Admin: 09/10/24 08:18 Dose: 5 mg Aspirin (Aspirin 81 Mg Ec Tablet) 81 mg PO QAM [facility] Last Admin: 09/10/24 06:04 Dose: 81 mg Atorvastatin Calcium (Atorvastatin 40 Mg Tablet) 40 mg PO BEDTIME [facility] Last Admin: 09/09/24 20:45 Dose: 40 mg Bumetanide (Bumetanide 1 Mg Tablet) 0 mg PO DAILY [facility] Last Admin: 09/10/24 08:18 Dose: 1 mg Carvedilol (Carvedilol 6.25 Mg Tablet) 6.25 mg PO BID [facility] Last Admin: 09/10/24 08:17 Dose: 6.25 mg Clopidogrel Bisulfate (Clopidogrel 75 Mg Tablet) 75 mg PO DAILY [facility] Last Admin: 09/10/24 08:17 Dose: 75 mg Escitalopram Oxalate (Escitalopram 10 Mg Tablet) 10 mg PO DAILY [facility] Last Admin: 09/10/24 08:18 Dose: 10 mg Gabapentin (Gabapentin 100 Mg Capsule) 100 mg PO TID [facility] Last Admin: 09/10/24 08:18 Dose: 100 mg Glucagon (Glucagon 1 Mg/Ml Kit 1 Ml) 1 mg IM ONCE PRN; Protocol PRN Reason: Adult Acute Hypoglycemia Nursing Prot. Heparin Sodium (Porcine) (Heparin 5,000 Unit/Ml Inj 1 Ml) 0 unit IVP PRN PRN; Protocol PRN Reason: Heparin Weight Based Protocol -Subsequent Bolus Heparin Sodium (Porcine) (Heparin, Porcine 1,000 Unit/Ml Inj 10 Ml) 1,000 unit IV PRN PRN PRN Reason: clotting Heparin Sodium/Sodium Chloride (Heparin Drip) 25,000 unit in 500 mls @ 0 mls/hr IV CONT [facility]; Protocol Last Admin: 09/09/24 10:36 Dose: Not Given Sodium Chloride (Sodium Chloride 0.9%) 1,000 mls @ 0 mls/hr IV .Q0M PRN PRN Reason: hypotension or symptomatic Albumin Human (Albumin) 12.5 gm in 50 mls @ 60 mls/hr IV PRN PRN PRN Reason: Hypotension and/or symptomatic Last Infusion: 09/08/24 02:18 Dose: Infused Dextrose (D5w) 500 mls @ 0 mls/hr IV ONCE PRN; Protocol PRN Reason: Adult Acute Hypoglycemia Prot Dextrose (D10w) 125 mls @ 750 mls/hr IV PRN PRN; Protocol PRN Reason: Adult Acute Hypoglycemia Nursing Protocol Dextrose (D10w) 250 mls @ 1,000 mls/hr IV PRN PRN; Protocol PRN Reason: Adult Acute Hypoglycemia Nursing Protocol Nitroglycerin/Dextrose (Nitroglycerin Drip) 50 mg in 250 mls @ 0 mls/hr IV .Q0M [facility]; Protocol Last Titration: 09/10/24 02:11 Dose: 0 mcg/min, 0 mls/hr Insulin Glargine (Insulin Glargine 100 Units/1 Ml) 5 unit SUBCUT QPM [facility] Last Admin: 09/09/24 17:06 Dose: 5 unit Insulin Human Lispro (Insulin Lispro 100 Unit/1 Ml) 0 unit SUBCUT WM&BEDTIME [facility]; Protocol Last Admin: 09/10/24 08:17 Dose: 6 unit Midodrine (Midodrine 5 Mg Tablet) 10 mg PO TID PRN PRN Reason: hypotension Last Admin: 09/07/24 14:15 Dose: 10 mg Morphine Sulfate (Morphine 4 Mg/Ml Sdv 1 Ml) 2 mg IVP Q4H PRN PRN Reason: SEVERE PAIN Last Admin: 09/10/24 02:25 Dose: 2 mg Ondansetron HCl (Ondansetron 2 Mg/Ml Sdv 2 Ml) 4 mg IVP Q8H PRN PRN Reason: vomiting, or N/V if npo Last Admin: 09/08/24 17:36 Dose: 4 mg Sevelamer Carbonate (Sevelamer 800 Mg Tablet) 800 mg PO TID [facility] Last Admin: 09/10/24 08:17 Dose: 800 mg Vitals/I&O/Wt Last Vital Signs Temp 97.6 F 09/10/24 07:39 Pulse 57 L 09/10/24 07:39 Resp 13 09/10/24 07:39 BP 117/63 09/10/24 07:39 Pulse Ox 100 09/10/24 07:39 O2 Del Method Nasal Cannula 09/10/24 07:39 09/09/24 09/10/24 09/10/24 22:59 06:59 14:59 Intake Total 209.65 / 359.45 213.4 / 572.85 Output Total 450 / 450 0 / 450 Balance -240.35 / -90.55 213.4 / 122.85 Weight last 48 hrs Weight 136 lb 4.8 oz Weight 133 lb 4.8 oz Weight 140 lb 14.006 oz Physical Exam Narrative: GENERAL: The patient is alert and oriented times three. Not in any acute distress. HEENT: Moderate pallor. No icterus or lymphadenopathy.Oral cavity: There are no mucous membrane lesions. NECK: Trachea appears to be central. No masses noted. No JVD or thyromegaly appreciated. RESPIRATORY: Chest is symmetrical. No intercostals muscle retraction or any accessory muscle activation. There is no chest wall tenderness. Breath sounds are heard bilaterally. No rales or rhonchi heard. No evidence of any consolidation. BREASTS: Deferred. HEART: The heart sounds are normal. No S3 or S4. No significant murmurs. No pericardial rub ABDOMEN: No vessel pulsations or distention. No tenderness. No organomegaly appreciated. Bowel sounds are normally heard. : Deferred. RECTAL: Deferred. LYMPHATIC: No lymphadenopathy noted in the neck. EXTREMITIES: No edema or cyanosis. No clubbing. The right groin has some tenderness with no hematoma or swelling. Good distal pulses MUSCULOSKELETAL: No acute joint deformities or swelling SKIN: There are no significant rashes or ecchymosis NEUROPSYCHIATRIC: The patient is alert and oriented x3. Appears to be in a good mood. No tremors or rigidity noted. Data 09/10/24 11:22 09/10/24 02:56 Other Labs: Laboratory Last Values WBC 3.93 10^3/uL (3.29-11.43) 09/10/24 11:22 RBC 2.54 10^6/uL (3.85-5.65) L 09/10/24 11:22 Hgb 7.50 g/dL (11.27-16.99) L 09/10/24 11:22 Hct 24.0 % (36-47) L 09/10/24 11:22 MCV 94.5 fl (85-98) 09/10/24 11:22 MCH 29.5 pg (27-33) 09/10/24 11:22 MCHC 31.3 g/dL (30-55) 09/10/24 11:22 RDW 15.1 % (12.1-15.1) 09/10/24 11:22 Plt Count 144 10^3/cmm (157-399) L 09/10/24 11:22 MPV 10.9 fL (7.4-10.4) H 09/10/24 11:22 Neut % (Auto) 54.7 % 09/10/24 11:22 Lymph % (Auto) 31.0 % 09/10/24 11:22 Dickson % (Auto) 8.7 % 09/10/24 11:22 Eos % (Auto) 4.8 % 09/10/24 11:22 Baso % (Auto) 0.5 % 09/10/24 11:22 Neut # (Auto) 2.15 10^3/uL (1.8-7.7) 09/10/24 11:22 Lymph # (Auto) 1.2 10^3/uL (0.8-4.8) 09/10/24 11:22 Dickson # (Auto) 0.3 10^3/uL (0.2-0.9) 09/10/24 11:22 Eos # (Auto) 0.2 10^3/uL (0.0-0.8) 09/10/24 11:22 Baso # (Auto) 0.0 10^3/uL (0.0-0.1) 09/10/24 11:22 Nucleated RBC % (auto) 0 % 09/10/24 11:22 Nucleated RBCs # 0.0 /100WBC 09/10/24 11:22 Haptoglobin 53.0 mg/L (30-200) 09/10/24 02:56 APTT 28.0 SECONDS (23.9-36.7) D 09/09/24 15:55 Sodium 134 mmol/L (136-145) L 09/10/24 02:56 Potassium 4.7 mmol/L (3.5-5.1) 09/10/24 02:56 Chloride 96 mmol/L (98-107) L 09/10/24 02:56 Carbon Dioxide 26 mmol/L (22-29) 09/10/24 02:56 Anion Gap 16.7 (5-19) 09/10/24 02:56 BUN 33 mg/dL (6-20) H 09/10/24 02:56 Creatinine 5.3 mg/dL (0.5-0.9) H 09/10/24 02:56 GFR Calculation 9.1 mL/min (90-130) L 09/10/24 02:56 Glucose 116 mg/dL (65-115) H 09/10/24 02:56 POC Glucose 133 mg/dL (70-110) H 09/10/24 16:47 Calculated Osmolality 286 mOsm/kg (285-295) 09/10/24 02:56 Calcium 8.3 mg/dL (8.5-10.5) L 09/10/24 02:56 Phosphorus 6.1 mg/dL (2.5-4.5) H 09/10/24 02:56 Magnesium 2.1 mg/dL (1.7-2.3) 09/10/24 02:56 Iron 155 ug/dL (37-145) H 09/08/24 05:02 TIBC 178 mcg/dl 09/08/24 05:02 % Saturation 87.0 % (20-50) H 09/08/24 05:02 Unsat Iron Binding 23 ug/dL (112-347) L 09/08/24 05:02 Ferritin 1525 ng/mL (15-150) H 09/08/24 05:02 Total Bilirubin 0.2 mg/dL (0.15-1.2) 09/10/24 02:56 AST 12 U/L (0-32) 09/10/24 02:56 ALT 8 U/L (0-33) 09/10/24 02:56 Alkaline Phosphatase 122 U/L (35-105) H 09/10/24 02:56 Lactate Dehydrogenase 205 U/L (135-214) 09/10/24 02:56 Troponin T Baseline 233 ng/L (0-10) H* 09/07/24 04:04 Troponin T 120 Minute 251.2 ng/L (0-10) H 09/07/24 05:20 Delta Troponin T 18.2 ABS# (0-10) H* 09/07/24 05:20 NT-Pro-B Natriuret Pep > 95203 pg/mL (0-125) H 09/07/24 04:04 Total Protein 7.0 g/dL (6.6-8.7) 09/10/24 02:56 Albumin 3.3 g/dL (3.5-5.2) L 09/10/24 02:56 Globulin 3.7 g/dL (1.3-4.6) 09/10/24 02:56 25-OH Vitamin D Total 6 ng/mL (30-100) L 09/08/24 05:02 Procalcitonin 0.17 ng/mL (0-0.5) 09/07/24 04:04 TSH 4.98 uIU/mL (0.27-4.20) H 09/08/24 05:02 PTH Intact 217.3 pg/mL (15-65) H 09/08/24 05:02 Calcium (PTH Intact) 8.9 mg/dL (8.5-10.5) 09/08/24 05:02 Urine Color Red (Yellow) A 09/09/24 02:15 Urine Appearance Cloudy (CLEAR) A 09/09/24 02:15 Urine pH Not Reportable 09/09/24 02:15 Ur Specific [place] Not Reportable 09/09/24 02:15 Urine Protein Not Reportable 09/09/24 02:15 Urine Glucose (UA) Not Reportable 09/09/24 02:15 Urine Ketones Not Reportable 09/09/24 02:15 Urine Blood Not Reportable 09/09/24 02:15 Urine Nitrate Not Reportable 09/09/24 02:15 Urine Bilirubin Not Reportable 09/09/24 02:15 Urine Urobilinogen Not Reportable 09/09/24 02:15 Ur Leukocyte Esterase Not Reportable 09/09/24 02:15 Urine RBC Too numerous to cnt /hpf (0-2) H 09/09/24 02:15 Urine WBC 5-10 /hpf (0-5) H 09/09/24 02:15 Ur Squamous Epith Cells 0-4 /hpf (0-5) H 09/09/24 02:15 Amorphous Sediment Not Reportable 09/09/24 02:15 Urine Bacteria Trace /hpf (NONE) 09/09/24 02:15 Urine Mucus 2+ /hpf 09/09/24 02:15 Hep Bs Antigen Non-reactive (Nonreactive) 09/07/24 04:04 Hep Bs Antibody 6.2 (11.5-1000) L 09/07/24 04:04 Hepatitis C Antibody Non-reactive (Nonreactive) 09/07/24 04:04 Blood Type O Positive 09/10/24 11:22 Rho(D) Type Rh positive 09/10/24 11:22 Antibody Screen Negative 09/10/24 11:22 Crossmatch See Detail 09/10/24 11:22 A&P Assessment and plan (1) Atherosclerotic heart disease of [place] coronary artery with unstable angina pectoris: Patient status post PCI of the ostial circumflex lesion, currently seems to be stable. She will continue her current medications. Qualifiers: [place] vs. transplanted heart: [place] heart Qualified Code(s): I25.110 - Atherosclerotic heart disease of [place] coronary artery with unstable angina pectoris (2) ESRD (end stage renal disease): Patient had hemodialysis today but could not be completed because of the hypotension. Currently she is normotensive. (3) Uncontrolled type 1 diabetes mellitus: The blood sugar seems to be in the normal range at this time. May continue on the current management. Qualifiers: Glycemic state: with hyperglycemia Qualified Code(s): E10.65 - Type 1 diabetes mellitus with hyperglycemia (4) Hyperlipidemia: May continue on the current medications. Qualifiers: Hyperlipidemia type: mixed hyperlipidemia Qualified Code(s): E78.2 - Mixed hyperlipidemia (5) Right groin pain: Most likely because of the hypersensitivity/scarring from multiple previous interventions through right groin. It seems to be improving at this point. Plan If the patient continues to remain stable, may be discharged home in the morning Disposition as per the primary May continue on the current medications at this time PDMP PDMP Reviewed: Not Reviewed Attestations Medical Necessity Statement*: Disposition as per the primary Coding Level of Care Code 43707 Diagnoses Atherosclerosis of [place] coronary artery of [place] heart with unstable angina pectoris I25.110 [place] vs. transplanted heart: [place] heart ESRD (end stage renal disease) N18.6 Uncontrolled type 1 diabetes mellitus with hyperglycemia E10.65 Glycemic state: with hyperglycemia Mixed hyperlipidemia E78.2 Hyperlipidemia type: mixed hyperlipidemia Right groin pain R10.31
--- NOTE | 2024-09-10 09:55 | USCV_ITS ---
Donita Aguilar Age: 39 Gender: F : 1985 Exam Date: 09/10/2024 15:50 Ordering Phys: Jd Díaz MD Technologist: LOVE Exam Location: [facility] [place] Indication: Post cath site pain rt groin Findings No obvious hematoma or psuedo noted at this time Normal arterial Doppler flow pattern with no evidence of aneurysm/hematoma Conclusions 1. No evidence of hematoma or pseudoaneurysm based on the above findings Dr Gilberto Eugene MD FACC (Electronically Signed) Final Date: 10 September 2024 16:45 S
--- NOTE | 2024-09-10 09:56 | XRR_ITS ---
PROCEDURE INFORMATION: Exam: XR Chest Exam date and time: 09/10/2024 4:23 PM Age: 39 years old Clinical indication: Dyspnea; Prior surgery; Surgery date: 6+ months; Surgery type: Port placement; Additional info: SOB, hypoxia TECHNIQUE: Imaging protocol: Radiologic exam of the chest. Views: 1 view. COMPARISON: CR (CHEST, ) 09/07/2024 3:39 AM FINDINGS: Tubes, catheters and devices: Stable position of right-sided catheter. Lungs: Mildly increased streaky opacities within right lower lobe. Pleural spaces: Small left pleural effusion. Heart/Mediastinum: Cardiomegaly. Bones/joints: Unremarkable. XR/XR chest 1V portable [id number] IMPRESSION: 1. Mildly increased streaky opacities within right lower lobe, which may represent atelectasis, however superimposed infection is not excluded. 2. Cardiomegaly. 3. Small left pleural effusion. 4. Stable position of right-sided catheter.
[2024-09-10] MEDS: albumin 12.5 GM/50 ML VIAL IV ×3 (10:45→11:53)
--- NOTE | 2024-09-10 10:58 | P.PN_ITS ---
Subjective 2 Subjective: anxious, sob. The patient is currently on hemodialysis. Patient was seen this morning she is postop day #1 status post left and right heart catheterization. Patient was found to have a normal left main, patent stents in LAD and RCA. She was found to have a high-grade 90% ostial circumflex lesion with an LVEDP of 15. The patient a PCI of the ostial circumflex lesion yesterday. The patient has some groin pain by the site of her catheterization. Medications: Reviewed: Yes Medication Review Details: Current Medications Albuterol/Ipratropium (Ipratropium-Albuterol 3 Ml Neb) 3 ml INHALATION Q4H PRN PRN Reason: SHORTNESS OF BREATH Alprazolam (Alprazolam 0.5 Mg Tablet) 0.5 mg PO TID PRN PRN Reason: ANXIETY Last Admin: 09/09/24 20:45 Dose: 0.5 mg Alteplase, Recombinant (Alteplase 1 Mg/Ml Sdv 2 Ml) 2 mg INTRACATH PRN PRN PRN Reason: DIALYSIS USE ONLY Amlodipine Besylate (Amlodipine 5 Mg Tablet) 5 mg PO DAILY [facility] Last Admin: 09/10/24 08:18 Dose: 5 mg Aspirin (Aspirin 81 Mg Ec Tablet) 81 mg PO QAM [facility] Last Admin: 09/10/24 06:04 Dose: 81 mg Atorvastatin Calcium (Atorvastatin 40 Mg Tablet) 40 mg PO BEDTIME [facility] Last Admin: 09/09/24 20:45 Dose: 40 mg Bumetanide (Bumetanide 1 Mg Tablet) 0 mg PO DAILY [facility] Last Admin: 09/10/24 08:18 Dose: 1 mg Carvedilol (Carvedilol 6.25 Mg Tablet) 6.25 mg PO BID [facility] Last Admin: 09/10/24 08:17 Dose: 6.25 mg Clopidogrel Bisulfate (Clopidogrel 75 Mg Tablet) 75 mg PO DAILY [facility] Last Admin: 09/10/24 08:17 Dose: 75 mg Escitalopram Oxalate (Escitalopram 10 Mg Tablet) 10 mg PO DAILY [facility] Last Admin: 09/10/24 08:18 Dose: 10 mg Gabapentin (Gabapentin 100 Mg Capsule) 100 mg PO TID [facility] Last Admin: 09/10/24 08:18 Dose: 100 mg Glucagon (Glucagon 1 Mg/Ml Kit 1 Ml) 1 mg IM ONCE PRN; Protocol PRN Reason: Adult Acute Hypoglycemia Nursing Prot. Heparin Sodium (Porcine) (Heparin 5,000 Unit/Ml Inj 1 Ml) 0 unit IVP PRN PRN; Protocol PRN Reason: Heparin Weight Based Protocol -Subsequent Bolus Heparin Sodium (Porcine) (Heparin, Porcine 1,000 Unit/Ml Inj 10 Ml) 1,000 unit IV PRN PRN PRN Reason: clotting Heparin Sodium/Sodium Chloride (Heparin Drip) 25,000 unit in 500 mls @ 0 mls/hr IV CONT [facility]; Protocol Last Admin: 09/09/24 10:36 Dose: Not Given Sodium Chloride (Sodium Chloride 0.9%) 1,000 mls @ 0 mls/hr IV .Q0M PRN PRN Reason: hypotension or symptomatic Albumin Human (Albumin) 12.5 gm in 50 mls @ 60 mls/hr IV PRN PRN PRN Reason: Hypotension and/or symptomatic Last Admin: 09/10/24 10:45 Dose: 60 mls/hr Dextrose (D5w) 500 mls @ 0 mls/hr IV ONCE PRN; Protocol PRN Reason: Adult Acute Hypoglycemia Prot Dextrose (D10w) 125 mls @ 750 mls/hr IV PRN PRN; Protocol PRN Reason: Adult Acute Hypoglycemia Nursing Protocol Dextrose (D10w) 250 mls @ 1,000 mls/hr IV PRN PRN; Protocol PRN Reason: Adult Acute Hypoglycemia Nursing Protocol Nitroglycerin/Dextrose (Nitroglycerin Drip) 50 mg in 250 mls @ 0 mls/hr IV .Q0M [facility]; Protocol Last Titration: 09/10/24 02:11 Dose: 0 mcg/min, 0 mls/hr Insulin Glargine (Insulin Glargine 100 Units/1 Ml) 5 unit SUBCUT QPM [facility] Last Admin: 09/09/24 17:06 Dose: 5 unit Insulin Human Lispro (Insulin Lispro 100 Unit/1 Ml) 0 unit SUBCUT WM&BEDTIME [facility]; Protocol Last Admin: 09/10/24 08:17 Dose: 6 unit Midodrine (Midodrine 5 Mg Tablet) 10 mg PO TID PRN PRN Reason: hypotension Last Admin: 09/07/24 14:15 Dose: 10 mg Morphine Sulfate (Morphine 4 Mg/Ml Sdv 1 Ml) 2 mg IVP Q4H PRN PRN Reason: SEVERE PAIN Last Admin: 09/10/24 09:23 Dose: 2 mg Ondansetron HCl (Ondansetron 2 Mg/Ml Sdv 2 Ml) 4 mg IVP Q8H PRN PRN Reason: vomiting, or N/V if npo Last Admin: 09/08/24 17:36 Dose: 4 mg Sevelamer Carbonate (Sevelamer 800 Mg Tablet) 800 mg PO TID [facility] Last Admin: 09/10/24 08:17 Dose: 800 mg Vitals/I&O/Wt Last Vital Signs Temp 97.6 F 09/10/24 07:39 Pulse 57 L 09/10/24 07:39 Resp 13 09/10/24 07:39 BP 117/63 09/10/24 07:39 Pulse Ox 100 09/10/24 07:39 O2 Del Method Nasal Cannula 09/10/24 07:39 09/09/24 09/10/24 09/10/24 22:59 06:59 14:59 Intake Total 209.65 / 359.45 213.4 / 572.85 360 / 360 Output Total 450 / 450 0 / 450 Balance -240.35 / -90.55 213.4 / 122.85 360 / 360 Weight last 48 hrs Weight 61.825 kg Weight 60.464 kg Weight 63.9 kg Physical Exam 2 Narrative: The patient was seen and examined. Vital signs much improved she is comfortable no apparent respiratory distress. HEENT normocephalic atraumatic and swollen. Lungs clear bilaterally heart regular positive S1-S2 She has right chest wall tunneled dialysis catheter. Abdomen is soft nontender nondistended positive bowel sound. Mild groin tenderness Extremity 1+ edema poor distal pulses right foot second toe amputation Neuro awake alert oriented x 3 normal pulses Data 09/10/24 02:56 09/10/24 02:56 A&P Assessment and plan (1) End stage renal disease on dialysis: 39-year-old lady history of ESRD diabetes htn. 1. ESRD -HD now and TTS. limit fluid removal as now hypotensive 2. CAD- s/p circumflex stent 3. Diabetic control. 4. Hypertension -BP is now low. stop amlodipine. use beta marii and /or Satya-i/ aRB as per cardiology Her BP is now low on HD 5. Anemia hemoglobin dropped from a high of 10.2 to 8.5 today - very high ferritin 1525 tsat 87%- please do not give any iron -agree w/ imaging groin to look for hematoma or a bleed -repeat cbc now 6. TSH=5 7. Check vitamin D. - PTH 217. acceptable for ESRD would recommend keeping overnight to ensure that she is stable The patient was seen and examined with the aid of a nurse using audiovisual equipment. The patient consents to telehealth and hemodialysis. discussed w/ Dr Joy Plan see above PDMP PDMP Reviewed: Not Reviewed Attestations 2 Medical Necessity Statement*: anemia, labile BP, CAD, IDDM, ESRD Time Spent in Patient Care: 16 - 35 minutes (>than 50% of time sp ent in counselling and/or direct pt care on unit) . Coding Level of Care Code Acute Code for Chg Fwd Diagnoses End stage renal disease on dialysis N18.6; Z99.2
[2024-09-10 11:33] LABS: Basophils % 0.5 %; Eosinophils # 0.2 10^3/uL (0.0-0.8); Eosinophils % 4.8 %; Lymphocytes # 1.2 10^3/uL (0.8-4.8); Mean Corpuscular HGB Conc 31.3 g/dL (30-55); Mean Corpuscular Hemoglobin 29.5 pg (27-33); Mean Corpuscular Volume 94.5 fl (85-98); Mean Platelet Volume 10.9 fL (7.4-10.4); Monocytes # 0.3 10^3/uL (0.2-0.9); Monocytes % 8.7 %; Neutrophils # 2.15 10^3/uL (1.8-7.7); Neutrophils % 54.7 %; Nucleated Red Blood Cells % 0 %; Platelet Count 144 10^3/cmm (157-399); Red Blood Count 2.54 10^6/uL (3.85-5.65); Red Cell Distribution Width 15.1 % (12.1-15.1); White Blood Count 3.93 10^3/uL (3.29-11.43)
--- NOTE | 2024-09-10 12:42 | CT_ITS ---
WS: [id number] CT ABDOMEN AND PELVIS NONCONTRAST HISTORY: Acute anemia. Assess for any retroperitoneal bleed TECHNIQUE: Imaging performed through the abdomen and pelvis. Coronal and sagittal reformats are submitted. All CT scans at [facility] use at least one of these dose optimization techniques: automated exposure control; mA and/or kV adjustment per patient size (includes targeted exams where dose is matched to clinical indication); or iterative reconstruction. DLP: 472.39 mGy.cm COMPARISON: 05/04/2024 Lower thorax: Small hiatal hernia. Otherwise negative. Liver: Normal size liver. No mass or bile duct dilatation. Gallbladder: Prior cholecystectomy. Pancreas: Poorly visualized pancreas. Head of the pancreas is not very well seen on this unenhanced exam. Spleen: Normal size spleen with granulomata. Adrenal glands: Normal. No mass. Right kidney: No obstruction. Central pelvis high density is contrast excretion. Left kidney: No obstruction. Central renal pelvis contrast excretion. Aorta: Mild atherosclerosis abdominal aorta with no aneurysm. No free fluid, intraperitoneal air or significant lymphadenopathy. GI tract: No obstruction. Abdominal wall: Soft tissue anasarca throughout the abdomen and pelvis. Pelvis: No free fluid in the pelvis. Uterus is normal position. No pelvic hematoma or mass. Osseous structures: Bilateral L5 pars defects. CT/CT abdomen pelvis wo con [id number] IMPRESSION: 1. No retroperitoneal or intraperitoneal bleed. 2. No ascites. 3. No renal obstruction. 4. Prior cholecystectomy. 5. Soft tissue anasarca.
--- NOTE | 2024-09-10 12:45 | PM.PN ---
Subjective Subjective: She is having pain and tenderness in her right groin at the access site. Did not notice bleeding. No symptoms lower leg. She is also feeling somewhat short of breath this morning. She was put on oxygen overnight due to decrease in saturation while sleeping. Vitals/I&O/Wt Last Vital Signs Temp 97.6 F 09/10/24 07:39 Pulse 57 L 09/10/24 07:39 Resp 13 09/10/24 07:39 BP 117/63 09/10/24 07:39 Pulse Ox 100 09/10/24 07:39 O2 Del Method Nasal Cannula 09/10/24 07:39 09/09/24 09/10/24 09/10/24 22:59 06:59 14:59 Intake Total 209.65 / 359.45 213.4 / 572.85 449 / 449 Output Total 450 / 450 0 / 450 Balance -240.35 / -90.55 213.4 / 122.85 449 / 449 Weight last 48 hrs Weight 61.825 kg Weight 60.464 kg Weight 63.9 kg Physical Exam Const: COMMON NORMALS: patient oriented x3 and alert GENERAL APPEARANCE: cooperative ORIENTATION/CONSCIOUSNESS: Yes awake HENMT: COMMON NORMALS: oropharynx normal Neck/C-Spine: COMMON NORMALS: no JVD Chest: OTHER: Dialysis port right chest. Resp: COMMON NORMALS: normal respiratory effort and clear to auscultation bilaterally AUSCULTATION: clear to auscultation bilaterally Cardio: COMMON NORMALS: no JVD, regular rhythm, S1 normal heart sound present, S2 normal heart sound present and No murmurs present (Cardio) RHYTHM: regular rhythm HEART SOUNDS: S1 normal heart sound present and S2 normal heart sound present GI: COMMON NORMALS: Normal to inspection, nondistended, normoactive bowel sounds present, Soft to palpation and non-tender PALPATION: Yes Soft to palpation Extremity: COMMON NORMALS: no joint enlargement and no pedal edema NARRATIVE EXTREMITY EXAM: AV graft proximal left medial arm Right groin post angiogram dressing, without pulsatile mass, no bleeding, bruising or swelling. Neuro: COMMON NORMALS: patient oriented x3 and moves all extremities SENSORIUM/ORIENTATION: Yes alert Skin: COMMON NORMALS: no rashes or lesions noted GENERAL SKIN EXAM: no rashes or lesions noted Data 09/10/24 11:22 09/10/24 02:56 Micro: Microbiology 09/09/24 02:15 Urine Culture - Preliminary Urine,Clean Catch A&P Assessment and plan (1) Acute anemia: Reviewed hemoglobin, platelets. With fluctuation, 9.2-day before yesterday, 10.2 yesterday, 8.5 this morning. Low blood pressure during dialysis. Recheck 7.5, per discussion with nephrology agree with 1 unit RBC transfusion with cardiac ischemia. Will check LDH, haptoglobin. Check CT abdomen pelvis for assessment for any retroperitoneal hematoma. She has been on aspirin, Plavix, has been off heparin drip. Continue SCD. Continue to monitor vitals. Continue to monitor on cardiac stepdown unit. (2) Chest pain: Chest pain has resolved after revascularization. Monitor for risk of reperfusion injury. With noted acute anemia on DAPT. Monitor with risk of bleeding. She is going to receive 1 unit RBC transfusion. Repeat blood counts. Assess for any retroperitoneal hematoma. Discussed with emergency response technician. Assessed by coronary angiography today per discussion with emergency response technician with finding of high-grade ostial circumflex lesion requiring PCI for management of ischemic heart disease with unstable angina NSTEMI. Reviewed cardiology note. Noted hematuria on UA. Monitor for risk of bleeding with DAPT, anticoagulation. Reviewed hemoglobin, platelets, PTT. Will need to follow-up with urology. Continue to monitor on telemetry with risk of arrhythmia, reperfusion injury after PCI. Reassess renal function. Continue to optimize hypertension. Wean off nitroglycerin drip. Continue volume optimization. She reports recently her blood pressure has been running softer than in the past, at home blood pressure was 105/50. She has continued taking all her medications. She did not take nitroglycerin at home as she states lives 30 minutes away and was worried that trying things before coming to the hospital may delay her arrival. Discussed with nursing, binder caser. Qualifiers: Chest pain type: precordial pain Qualified Code(s): R07.2 - Precordial pain Plan Acute decompensated diastolic congestive heart failure. Improving in terms of edema, although having shortness of breath today. Reassess chest x-ray. Discussed with biological engineer. Received dialysis. Additional management of ischemic heart disease as above. Continue optimization of volume status, hemodialysis. Reassess intake and output, volume status. Hematuria: Will need follow-up with urology. Reviewed CT abdomen pelvis from April, without kidney lesions or stones at that time. Does have history of smoking. With acute on chronic anemia following coronary angiography additional workup with CT abdomen pelvis is requested as per above. Chronic diarrhea: Reports having had loose stools for a long time, without blood, nonpainful. Without recent changes. Will benefit from follow-up with primary provider. HTN: Resumed on carvedilol, and started on amlodipine by nephrology after angiogram. Improvement in blood pressure. Monitor blood pressures. COPD: not in exacerbation. Breathing treatments as needed. DM: Reviewed POC glucose. Conitnue Lantus. Sliding scale insulin. POC glucose monitoring. Anxiety Other medical problems PDMP PDMP Reviewed: Not Reviewed Attestations Medical Necessity Statement*: Continue admission for assessment management following unstable angina, with acute on chronic anemia. Diagnoses Acute anemia D64.9 Precordial pain R07.2 Chest pain type: precordial pain
[2024-09-10 13:23] LABS: Lactate Dehydrogenase 205 U/L (135-214)
[2024-09-10 14:14] LABS: Glucose Point of Care 75 mg/dL (70-110)
[2024-09-10 16:58] LABS: Glucose Point of Care 133 mg/dL (70-110)
[2024-09-10] MEDS: insulin glargine 100 units/1 mL 5 UNIT SUBCUT (18:10)
[2024-09-10 20:44] LABS: Glucose Point of Care 282 mg/dL (70-110)
[2024-09-10] MEDS: atorvastatin 40 mg Tablet PO (21:07)
[2024-09-10] MEDS: ALPRAZolam 0.5 mg Tablet PO (21:07)
[2024-09-11] VITALS (8 sets, daily range): BP systolic 129–169; BP diastolic 65–85; PULSE 64–76; RESP 12–19; TEMP 36.6–37; O2SAT 95–100
[2024-09-11] MEDS: morphine 4 mg/mL SDV 1 mL 2 MG IVP ×3 (00:10→12:56)
[2024-09-11 05:25] LABS: Basophils # 0.1 10^3/uL (0.0-0.1); Eosinophils # 0.3 10^3/uL (0.0-0.8); Eosinophils % 6.1 %; Hematocrit 29.5 % (36-47); Lymphocytes # 1.5 10^3/uL (0.8-4.8); Lymphocytes % 27.9 %; Mean Corpuscular HGB Conc 31.2 g/dL (30-55); Mean Corpuscular Volume 93.1 fl (85-98); Mean Platelet Volume 10.9 fL (7.4-10.4); Monocytes # 0.6 10^3/uL (0.2-0.9); Neutrophils # 2.83 10^3/uL (1.8-7.7); Neutrophils % 53.8 %; Nucleated Red Blood Cells % 0 %; Platelet Count 142 10^3/cmm (157-399); Red Blood Count 3.17 10^6/uL (3.85-5.65); Red Cell Distribution Width 15.8 % (12.1-15.1); White Blood Count 5.26 10^3/uL (3.29-11.43)
[2024-09-11 05:49] LABS: Alanine Aminotransferase 8 U/L (0-33); Albumin Level 3.8 g/dL (3.5-5.2); Alkaline Phosphatase 116 U/L (35-105); Anion Gap 12.5 (5-19); Aspartate Amino Transferase 13 U/L (0-32); Blood Urea Nitrogen 20 mg/dL (6-20); Calcium 8.7 mg/dL (8.5-10.5); Carbon Dioxide 28 mmol/L (22-29); Chloride 98 mmol/L (98-107); Globulin 3.4 g/dL (1.3-4.6); Glomerular Filtration Rate 12.9 mL/min (90-130); Glucose 144 mg/dL (65-115); Osmolality Calculated 283 mOsm/kg (285-295); Phosphorus 4.2 mg/dL (2.5-4.5); Potassium 4.5 mmol/L (3.5-5.1); Sodium 134 mmol/L (136-145); Total Bilirubin 0.3 mg/dL (0.15-1.2); Total Protein 7.2 g/dL (6.6-8.7)
[2024-09-11 06:22] LABS: Glucose Point of Care 165 mg/dL (70-110)
[2024-09-11] MEDS: aspirin 81 mg EC Tablet PO (06:32)
--- NOTE | 2024-09-11 08:02 | PC.SOCIAL ---
IMM Update Pg. 2 of IMM updated. Initialed, dated, and timed. Copy provided at bedside.
[2024-09-11] MEDS: clopidogrel 75 mg Tablet PO (08:28)
[2024-09-11] MEDS: gabapentin 100 mg Capsule PO (08:28)
[2024-09-11] MEDS: escitalopram 10 mg Tablet PO (08:28)
[2024-09-11] MEDS: bumetanide 1 mg Tablet PO (08:28)
[2024-09-11] MEDS: insulin lispro 100 unit/1 mL SUBCUT (08:29)
[2024-09-11] MEDS: sevelamer 800 mg Tablet PO (08:29)
--- NOTE | 2024-09-11 09:23 | PM.PN ---
Subjective Subjective: still has groin pain. no n/v/f/c/benavides/d. denies sob or cp Medications: Reviewed: Yes Medication Review Details: Current Medications Albuterol/Ipratropium (Ipratropium-Albuterol 3 Ml Neb) 3 ml INHALATION Q4H PRN PRN Reason: SHORTNESS OF BREATH Alprazolam (Alprazolam 0.5 Mg Tablet) 0.5 mg PO TID PRN PRN Reason: ANXIETY Last Admin: 09/10/24 21:07 Dose: 0.5 mg Alteplase, Recombinant (Alteplase 1 Mg/Ml Sdv 2 Ml) 2 mg INTRACATH PRN PRN PRN Reason: DIALYSIS USE ONLY Aspirin (Aspirin 81 Mg Ec Tablet) 81 mg PO QAM [facility] Last Admin: 09/11/24 06:32 Dose: 81 mg Atorvastatin Calcium (Atorvastatin 40 Mg Tablet) 40 mg PO BEDTIME [facility] Last Admin: 09/10/24 21:07 Dose: 40 mg Bumetanide (Bumetanide 1 Mg Tablet) 0 mg PO DAILY [facility] Last Admin: 09/11/24 08:28 Dose: 1 mg Carvedilol (Carvedilol 6.25 Mg Tablet) 6.25 mg PO BID [facility] Last Admin: 09/10/24 08:17 Dose: 6.25 mg Clopidogrel Bisulfate (Clopidogrel 75 Mg Tablet) 75 mg PO DAILY [facility] Last Admin: 09/11/24 08:28 Dose: 75 mg Escitalopram Oxalate (Escitalopram 10 Mg Tablet) 10 mg PO DAILY [facility] Last Admin: 09/11/24 08:28 Dose: 10 mg Gabapentin (Gabapentin 100 Mg Capsule) 100 mg PO TID [facility] Last Admin: 09/11/24 08:28 Dose: 100 mg Glucagon (Glucagon 1 Mg/Ml Kit 1 Ml) 1 mg IM ONCE PRN; Protocol PRN Reason: Adult Acute Hypoglycemia Nursing Prot. Heparin Sodium (Porcine) (Heparin, Porcine 1,000 Unit/Ml Inj 10 Ml) 1,000 unit IV PRN PRN PRN Reason: clotting Sodium Chloride (Sodium Chloride 0.9%) 1,000 mls @ 0 mls/hr IV .Q0M PRN PRN Reason: hypotension or symptomatic Albumin Human (Albumin) 12.5 gm in 50 mls @ 60 mls/hr IV PRN PRN PRN Reason: Hypotension and/or symptomatic Last Infusion: 09/10/24 21:36 Dose: Infused Dextrose (D5w) 500 mls @ 0 mls/hr IV ONCE PRN; Protocol PRN Reason: Adult Acute Hypoglycemia Prot Dextrose (D10w) 125 mls @ 750 mls/hr IV PRN PRN; Protocol PRN Reason: Adult Acute Hypoglycemia Nursing Protocol Dextrose (D10w) 250 mls @ 1,000 mls/hr IV PRN PRN; Protocol PRN Reason: Adult Acute Hypoglycemia Nursing Protocol Insulin Glargine (Insulin Glargine 100 Units/1 Ml) 5 unit SUBCUT QPM [facility] Last Admin: 09/10/24 18:10 Dose: 5 unit Insulin Human Lispro (Insulin Lispro 100 Unit/1 Ml) 0 unit SUBCUT WM&BEDTIME [facility]; Protocol Last Admin: 09/11/24 08:29 Dose: 2 unit Midodrine (Midodrine 5 Mg Tablet) 10 mg PO TID PRN PRN Reason: hypotension Last Admin: 09/07/24 14:15 Dose: 10 mg Morphine Sulfate (Morphine 4 Mg/Ml Sdv 1 Ml) 2 mg IVP Q4H PRN PRN Reason: SEVERE PAIN Last Admin: 09/11/24 08:37 Dose: 2 mg Ondansetron HCl (Ondansetron 2 Mg/Ml Sdv 2 Ml) 4 mg IVP Q8H PRN PRN Reason: vomiting, or N/V if npo Last Admin: 09/08/24 17:36 Dose: 4 mg Sevelamer Carbonate (Sevelamer 800 Mg Tablet) 800 mg PO TID [facility] Last Admin: 09/11/24 08:29 Dose: 800 mg Sodium Chloride (Sodium Chloride 0.9% 100 Ml Bag) 50 ml IV PRN PRN PRN Reason: Blood transfusion prime and flush Stop: 09/11/24 12:23 Vitals/I&O/Wt Last Vital Signs Temp 97.8 F 09/11/24 07:29 Pulse 65 09/11/24 07:29 Resp 12 09/11/24 08:37 BP 159/77 09/11/24 07:29 Pulse Ox 100 09/11/24 08:37 O2 Del Method Room Air 09/11/24 07:29 09/10/24 09/11/24 09/11/24 22:59 06:59 14:59 Intake Total 500 / 1599 100 / 1699 220 / 220 Output Total 0 / 423 Balance 500 / 1176 100 / 1276 220 / 220 Weight last 48 hrs Weight 65.771 kg Weight 61.8 kg Weight 61.825 kg Physical Exam Narrative: The patient was seen and examined. BP elevated today, no apparent respiratory distress. HEENT normocephalic atraumatic and swollen. Lungs clear bilaterally heart regular positive S1-S2 She has right chest wall tunneled dialysis catheter. Abdomen is soft nontender nondistended positive bowel sound. Mild groin tenderness Extremity 1+ edema poor distal pulses right foot second toe amputation Neuro awake alert oriented x 3 normal pulses Data 09/11/24 04:50 09/11/24 04:50 Micro: Microbiology 09/09/24 02:15 Urine Culture - Final Urine,Clean Catch 09/10/24 20:18 Occult Blood (FIT) - Final Stool - Stool Aspirate A&P Assessment and plan (1) End stage renal disease on dialysis: 39-year-old lady history of ESRD diabetes htn. 1. ESRD -HD TTS. 2. CAD- s/p circumflex stent 3. Diabetic control. 4. Hypertension -BP is high again. please use beta marii and /or Satya-i/ aRB as per cardiology 5. Anemia hemoglobin dropped from a high of 10.2 to 7.5. hgb benton to 9.5 s/p PRBC tx - very high ferritin 1525 tsat 87%- please do not give any iron 6. replace vitamin D. - PTH 217. acceptable for ESRD would recommend keeping overnight to ensure that she is stable The patient was seen and examined with the aid of a nurse using audiovisual equipment. The patient consents to telehealth and hemodialysis. Plan see above PDMP PDMP Reviewed: Not Reviewed Attestations Medical Necessity Statement*: per medicine Time Spent in Patient Care: 16 - 35 minutes (>than 50% of time spent in counselling and/or direct pt care on unit). Coding Level of Care Code Acute Code for Chg Fwd Diagnoses End stage renal disease on dialysis N18.6; Z99.2
--- NOTE | 2024-09-11 09:41 | PM.DCS ---
Discharge Providers Date of Admission: 09/07/24 09:03 Date of Discharge: September 11, 2024 Attending Provider at Admission: Jd Díaz Attending Provider at Discharge: Jd Díaz Primary Care Provider: SUZANNE Dias Diagnoses at Discharge Discharge Diagnosis (1) End stage renal disease on dialysis: Status: Acute Reason for Visit Reason for Visit: Chest Pains into Jaw Brief History: The patient reports experiencing chest pain that woke them from sleep and worsened on the way to the hospital. The pain radiated to the neck, jaw, and back and was described as a pressure rather than a stabbing sensation. The patient experienced difficulty breathing during the pain episodes, which worsened when sitting up or lying back, and with deep breaths. There was no associated cough, fever, chills, sore throat, sneezing, nausea, vomiting, or blood in the stool or urine. The patient has a history of coronary artery disease and had a stent placed in March 2024. The patient also reports chronic diarrhea without blood in the stool and reduced urine output. During a recent dialysis session, the patient experienced low blood pressure and chest pain, which was not relieved by nitroglycerin. The pain resolved by bedtime after being transported to the hospital. The patient takes nitroglycerin at home but did not use it during the recent episode. Blood pressure at home was 105/50. The patient has been doing well with blood pressure control since March, with no recent high readings. A chest X-ray showed changes in the lower lungs, possibly due to congestion or fluid overload. Troponin levels showed slight elevation, similar to previous levels. The patient takes aspirin and Plavix regularly and has not missed any doses. Hospital Course Hospital Course She was admitted for additional assessment management for unstable angina. Treated with anticoagulation. Initially blood pressure soft, but subsequently with hypertensive urgency. Systolic blood pressure is rising into 200s. Treated with nitroglycerin drip. Oral antihypertensives for reescalated. With finding of moderate to severe troponin elevation. She was additionally assessed with echocardiogram which showed a decrease in ejection fraction down to 47%, mild diffuse hypokinesia of the inferior wall and basal inferolateral segments. Mild LVH. She was assessed by cardiology, with troponin elevation, cardiogram abnormality, ongoing chest pain, underwent additional assessment with coronary angiography with finding of high-grade lesion of ostial circumflex artery with 98% stenosis for which she underwent PCI with stenting. Subsequently with resolution of chest pain, improvement in blood pressure. However, with dialysis becoming hypotensive. Additionally with pain and tenderness in the right groin after his procedure, as well as with decreasing hemoglobin down to 7.5 underwent an additional assessment with arterial duplex of right groin access site which did not show hematoma or pseudoaneurysm, as well as assist with CT abdomen pelvis to assess for any retroperitoneal hematoma which was negative. She received 1 unit RBC transfusion with increase in hemoglobin from 7.5-9.2. Likely there may have been some spurious/exaggerated fluctuation of the lab results. She was noted to have some hematuria, however, on presentation, without evidence of UTI. CT abdomen pelvis did not reveal any obvious nephrolithiasis, obvious mass, although noncontrast study. With history of smoking she is referred for follow-up with urology for additional assessment of her hematuria. On reassessment today she is chest pain-free. She is saturating well on room air. Still some pain/tenderness in the right groin which on reassessment is not found to have any bruising bleeding or swelling. No pulsatile mass. As per discussion with cardiology with prior procedures performed via that access site, may have position built up scar tissue contributing to her symptoms. She is instructed to monitor and protect the site, and seek medical attention in case of any worsening or new concerning symptoms. With hypotension with dialysis, difficult to control labile blood pressure, blood pressure medications are further adjusted as per discussion with cardiology, she is resumed on carvedilol, lisinopril dose is decreased down to 20 mg, nifedipine dose was decreased to 60 mg, she is asked to continue medications except for holding nifedipine on the night before dialysis. Please reassess, monitor hypertension and continue to optimize control. Physical Exam Narrative: Accompanied by her mother. Const: COMMON NORMALS: patient oriented x3 and alert GENERAL APPEARANCE: cooperative ORIENTATION/CONSCIOUSNESS: Yes awake HENMT: COMMON NORMALS: oropharynx normal Neck/C-Spine: COMMON NORMALS: no JVD Chest: OTHER: Dialysis port right chest. Resp: COMMON NORMALS: normal respiratory effort and clear to auscultation bilaterally AUSCULTATION: clear to auscultation bilaterally Cardio: COMMON NORMALS: no JVD, regular rhythm, S1 normal heart sound present, S2 normal heart sound present and No murmurs present (Cardio) RHYTHM: regular rhythm HEART SOUNDS: S1 normal heart sound present and S2 normal heart sound present GI: COMMON NORMALS: Normal to inspection, nondistended, normoactive bowel sounds present, Soft to palpation and non-tender PALPATION: Yes Soft to palpation Extremity: COMMON NORMALS: no joint enlargement and no pedal edema NARRATIVE EXTREMITY EXAM: AV graft proximal left medial arm Right groin without any swelling bleeding or bruising, no pulsatile mass. Neuro: COMMON NORMALS: patient oriented x3 and moves all extremities SENSORIUM/ORIENTATION: Yes alert Skin: COMMON NORMALS: no rashes or lesions noted GENERAL SKIN EXAM: no rashes or lesions noted Discharge Data Studies Completed and Pending Completed Studies During Hospitalization Category Date Time Status CT abdomen pelvis wo con [id number] Stat Cat Scan 09/10/24 12:42 Completed CXRP [XR chest 1V portable [id number]] Routine Exams 09/10/24 09:56 Completed XR chest 1V portable [id number] Stat Exams 09/07/24 03:30 [place] [id number] Stat Ultrasound 09/10/24 09:55 Completed CV. echo limited [id number] Routine Ultrasound 09/08/24 08:53 Completed Pending at discharge Category Date Time Status V[employer]DER request for service Routine Exams 09/09/24 07:13 Taken Comprehensive Metabolic Panel AM LABS Lab 09/12/24 04:00 Ordered Magnesium AM LABS Lab 09/12/24 04:00 Ordered PRBC [Leukocyte Reduced RBC] Routine Lab 09/10/24 11:22 Results Phosphorus AM LABS Lab 09/12/24 04:00 Ordered Type and Screen Routine Lab 09/10/24 11:22 Results Vitamin D 1,25 Dihydroxy Routine Lab 09/08/24 05:02 Received Radiology Impressions Chest X-Ray 09/10/24 09:56 IMPRESSION: 1. Mildly increased streaky opacities within right lower lobe, which may represent atelectasis, however superimposed infection is not excluded. 2. Cardiomegaly. 3. Small left pleural effusion. 4. Stable position of right-sided catheter. Abdomen/Pelvis CT 09/10/24 12:42 IMPRESSION: 1. No retroperitoneal or intraperitoneal bleed. 2. No ascites. 3. No renal obstruction. 4. Prior cholecystectomy. 5. Soft tissue anasarca. Laboratory Results WBC 5.26 10^3/uL (3.29-11.43) 09/11/24 04:50 RBC 3.17 10^6/uL (3.85-5.65) L 09/11/24 04:50 Hgb 9.20 g/dL (11.27-16.99) L 09/11/24 04:50 Hct 29.5 % (36-47) L 09/11/24 04:50 MCV 93.1 fl (85-98) 09/11/24 04:50 MCH 29.0 pg (27-33) 09/11/24 04:50 MCHC 31.2 g/dL (30-55) 09/11/24 04:50 RDW 15.8 % (12.1-15.1) H 09/11/24 04:50 Plt Count 142 10^3/cmm (157-399) L 09/11/24 04:50 MPV 10.9 fL (7.4-10.4) H 09/11/24 04:50 Neut % (Auto) 53.8 % 09/11/24 04:50 Lymph % (Auto) 27.9 % 09/11/24 04:50 [place] % (Auto) 11.0 % 09/11/24 04:50 Eos % (Auto) 6.1 % 09/11/24 04:50 Baso % (Auto) 1.0 % 09/11/24 04:50 Neut # (Auto) 2.83 10^3/uL (1.8-7.7) 09/11/24 04:50 Lymph # (Auto) 1.5 10^3/uL (0.8-4.8) 09/11/24 04:50 [place] # (Auto) 0.6 10^3/uL (0.2-0.9) 09/11/24 04:50 Eos # (Auto) 0.3 10^3/uL (0.0-0.8) 09/11/24 04:50 Baso # (Auto) 0.1 10^3/uL (0.0-0.1) 09/11/24 04:50 Nucleated RBC % (auto) 0 % 09/11/24 04:50 Nucleated RBCs # 0.0 /100WBC 09/11/24 04:50 Haptoglobin 53.0 mg/L (30-200) 09/10/24 02:56 APTT 28.0 SECONDS (23.9-36.7) D 09/09/24 15:55 Sodium 134 mmol/L (136-145) L 09/11/24 04:50 Potassium 4.5 mmol/L (3.5-5.1) 09/11/24 04:50 Chloride 98 mmol/L (98-107) 09/11/24 04:50 Carbon Dioxide 28 mmol/L (22-29) 09/11/24 04:50 Anion Gap 12.5 (5-19) 09/11/24 04:50 BUN 20 mg/dL (6-20) 09/11/24 04:50 Creatinine 3.9 mg/dL (0.5-0.9) H 09/11/24 04:50 GFR Calculation 12.9 mL/min (90-130) L 09/11/24 04:50 Glucose 144 mg/dL (65-115) H 09/11/24 04:50 POC Glucose 165 mg/dL (70-110) H 09/11/24 06:12 Calculated Osmolality 283 mOsm/kg (285-295) L 09/11/24 04:50 Calcium 8.7 mg/dL (8.5-10.5) 09/11/24 04:50 Phosphorus 4.2 mg/dL (2.5-4.5) 09/11/24 04:50 Magnesium 2.0 mg/dL (1.7-2.3) 09/11/24 04:50 Iron 155 ug/dL (37-145) H 09/08/24 05:02 TIBC 178 mcg/dl 09/08/24 05:02 % Saturation 87.0 % (20-50) H 09/08/24 05:02 Unsat Iron Binding 23 ug/dL (112-347) L 09/08/24 05:02 Ferritin 1525 ng/mL (15-150) H 09/08/24 05:02 Total Bilirubin 0.3 mg/dL (0.15-1.2) 09/11/24 04:50 AST 13 U/L (0-32) 09/11/24 04:50 ALT 8 U/L (0-33) 09/11/24 04:50 Alkaline Phosphatase 116 U/L (35-105) H 09/11/24 04:50 Lactate Dehydrogenase 205 U/L (135-214) 09/10/24 02:56 Troponin T Baseline 233 ng/L (0-10) H* 09/07/24 04:04 Troponin T 120 Minute 251.2 ng/L (0-10) H 09/07/24 05:20 Delta Troponin T 18.2 ABS# (0-10) H* 09/07/24 05:20 NT-Pro-B Natriuret Pep > 08979 pg/mL (0-125) H 09/07/24 04:04 Total Protein 7.2 g/dL (6.6-8.7) 09/11/24 04:50 Albumin 3.8 g/dL (3.5-5.2) 09/11/24 04:50 Globulin 3.4 g/dL (1.3-4.6) 09/11/24 04:50 25-OH Vitamin D Total 6 ng/mL (30-100) L 09/08/24 05:02 Procalcitonin 0.17 ng/mL (0-0.5) 09/07/24 04:04 TSH 4.98 uIU/mL (0.27-4.20) H 09/08/24 05:02 PTH Intact 217.3 pg/mL (15-65) H 09/08/24 05:02 Calcium (PTH Intact) 8.9 mg/dL (8.5-10.5) 09/08/24 05:02 Urine Color Red (Yellow) A 09/09/24 02:15 Urine Appearance Cloudy (CLEAR) A 09/09/24 02:15 Urine pH Not Reportable 09/09/24 02:15 Ur Specific [place] Not Reportable 09/09/24 02:15 Urine Protein Not Reportable 09/09/24 02:15 Urine Glucose (UA) Not Reportable 09/09/24 02:15 Urine Ketones Not Reportable 09/09/24 02:15 Urine Blood Not Reportable 09/09/24 02:15 Urine Nitrate Not Reportable 09/09/24 02:15 Urine Bilirubin Not Reportable 09/09/24 02:15 Urine Urobilinogen Not Reportable 09/09/24 02:15 Ur Leukocyte Esterase Not Reportable 09/09/24 02:15 Urine RBC Too numerous to cnt /hpf (0-2) H 09/09/24 02:15 Urine WBC 5-10 /hpf (0-5) H 09/09/24 02:15 Ur Squamous Epith Cells 0-4 /hpf (0-5) H 09/09/24 02:15 Amorphous Sediment Not Reportable 09/09/24 02:15 Urine Bacteria Trace /hpf (NONE) 09/09/24 02:15 Urine Mucus 2+ /hpf 09/09/24 02:15 Hep Bs Antigen Non-reactive (Nonreactive) 09/07/24 04:04 Hep Bs Antibody 6.2 (11.5-1000) L 09/07/24 04:04 Hepatitis C Antibody Non-reactive (Nonreactive) 09/07/24 04:04 Blood Type O Positive 09/10/24 11:22 Rho(D) Type Rh positive 09/10/24 11:22 Antibody Screen Negative 09/10/24 11:22 Crossmatch See Detail 09/10/24 11:22 Vitals Last Vital Signs Temp 97.8 F 09/11/24 07:29 Pulse 65 09/11/24 07:29 Resp 12 09/11/24 08:37 BP 159/77 09/11/24 07:29 Pulse Ox 100 09/11/24 08:37 O2 Del Method Room Air 09/11/24 07:29 Discharge Plan Discharge Patient Disposition: Home Condition: Stable Prescriptions: New nifedipine [Procardia XL] 60 mg tablet extended release 24hr 60 mg PO DAILY Qty: 90 0RF Continued ([facility]) AFO brace See Rx Instructions .Route .MEDSUPPLY Qty: 1 0RF Rx Instructions: As directed to the shoe guys ([facility]) diabetic shoes with 3 inserts See Rx Instructions .Route .MEDSUPPLY Qty: 1 0RF Rx Instructions: As directed to the shoe guys ([facility]) Dexcom G6 Senior Water/Wastewater Engineer Misc See Rx Instructions .Route Qty: 1 0RF Rx Instructions: As directed ([facility]) Dexcom G6 Sensor Device See Rx Instructions .Route Qty: 3 0RF Rx Instructions: As directed ([facility]) Dexcom G6 Transmitter Device See Rx Instructions .Route Qty: 1 0RF Rx Instructions: As directed atorvastatin 40 mg tablet 40 mg PO BEDTIME 30 Days Qty: 30 0RF aspirin 81 mg tablet,delayed release (DR/EC) 81 mg PO QAM 30 Days Qty: 30 0RF insulin glargine [Lantus Solostar U-100 Insulin] 100 unit/mL (3 mL) Insulin Pen 5 unit SUBCUT QPM insulin aspart U-100 [Novolog FlexPen U-100 Insulin] 100 unit/mL (3 mL) insulin pen 5 unit SUBCUT TID Qty: 15 0RF Rx Instructions: sliding scale sevelamer carbonate 800 mg Tablet 800 mg PO TID Qty: 90 0RF clonidine HCl 0.1 mg tablet See Rx Instructions .ROUTE .COMPLEX PRN (Reason: Blood Pressure) Rx Instructions: TAKE 1 TABLET IF SYSTOLIC BLOOD PRESSURE IS GREATER THAN 160, REPEAT ONCE IF SYSTOLIC BLOOD PRESSURE IS STILL OVER 160 AFTER 1 HOUR. gabapentin 100 mg Capsule 100 mg PO TID clopidogrel 75 mg tablet 75 mg PO DAILY carvedilol 3.125 mg tablet 3.125 mg PO BID bumetanide 1 mg tablet See Rx Instructions .ROUTE .COMPLEX Rx Instructions: TAKE 1 TABLET BY MOUTH ONCE DAILY ON NON-DIALYSIS DAYS escitalopram oxalate 10 mg tablet 10 mg PO DAILY Changed lisinopril 40 mg tablet 20 mg PO QAM Qty: 1 0RF Discontinued nifedipine 90 mg tablet extended release 90 mg PO BEDTIME Discharge Orders: Discharge Order (Routine); Ordered 09/11/24 Ordered By: Jd Díaz Referrals: Chandra Gallegos [Referring] - 2 weeks (Hematuria, Hx smoking Patient will need referal from primary care doctor ) Elizabeth Dougherty FNP [Primary Care Provider] - 09/16/24 8:20 am Elza Carranza FNP [Nurse Practitioner] - 09/29/24 1:00 pm Discharge Diet: Cardiac and Diabetic Discharge Activity: Limit activity as instructed Patient Instructions: Coronary Angioplasty (DC), Opioid Safety, Pain Management Activity Restrictions/Additional Instructions: Follow-up with your primary doctor for further assessment of anemia. Follow-up with cardiology for reassessment after treatment of new blockage in your coronary artery with a stent. Continue aspirin and Plavix as discussed. Watch out for risk of bleeding. Follow-up with urology for additional assessment due to blood in urine with history of smoking. No kidney stones were seen on CT. Continue to monitor blood pressure at home 3 times daily. Continue to work with your primary provider on management of labile hypertension with blood pressure sometimes being low and sometimes high. Please continue carvedilol as before, decrease lisinopril dose to 20 mg, decrease nifedipine dose to 60 mg. Continue these medicines except hold nifedipine on the evening before the day of dialysis. Return for new or worsening symptoms. Discharge Attestations Time Spent in Discharge Care*: greater than 30 min Status at Discharge: Cognitive status at discharge: cognitively intact, Behavioral status at discharge: cooperative and independent in ADL's, Quality Metrics Clinical Quality Measures [ Acute Myocardial Infaction { Clinical Trial Participant: No; Contraindication to aspirin: None; Aspirin prescribed; Contraindication to statin: None; Statin prescribed; Contraindication to PCI: None; PCI performed;}] Coding Level of Care Code 84920 Total time (in minutes) for Discharge: 45 Diagnoses End stage renal disease on dialysis N18.6; Z99.2
--- NOTE | 2024-09-11 11:10 | PM.PN ---
Subjective Subjective: Patient is feeling okay with no chest pain or chest tightness. Still has some pain in the right groin but is improving. Continues to have no swelling. Good distal pulses. Vitals/I&O/Wt Last Vital Signs Temp 97.8 F 09/11/24 11:31 Pulse 64 09/11/24 11:31 Resp 14 09/11/24 12:56 BP 145/77 09/11/24 11:31 Pulse Ox 98 09/11/24 12:56 O2 Del Method Room Air 09/11/24 11:31 09/11/24 09/11/24 09/11/24 06:59 14:59 22:59 Intake Total 100 / 1699 440 / 440 Output Total 0 / 423 Balance 100 / 1276 440 / 440 Weight last 48 hrs Weight 145 lb Weight 136 lb 3.931 oz Weight 136 lb 4.8 oz Physical Exam Narrative: GENERAL: The patient is alert and oriented times three. Not in any acute distress. HEENT: Moderate pallor. No icterus or lymphadenopathy.Oral cavity: There are no mucous membrane lesions. NECK: Trachea appears to be central. No masses noted. No JVD or thyromegaly appreciated. RESPIRATORY: Chest is symmetrical. No intercostals muscle retraction or any accessory muscle activation. There is no chest wall tenderness. Breath sounds are heard bilaterally. No rales or rhonchi heard. No evidence of any consolidation. BREASTS: Deferred. HEART: The heart sounds are normal. No S3 or S4. No significant murmurs. No pericardial rub ABDOMEN: No vessel pulsations or distention. No tenderness. No organomegaly appreciated. Bowel sounds are normally heard. : Deferred. RECTAL: Deferred. LYMPHATIC: No lymphadenopathy noted in the neck. EXTREMITIES: No edema or cyanosis. No clubbing. The right groin has some tenderness with no hematoma or swelling. Good distal pulses MUSCULOSKELETAL: No acute joint deformities or swelling SKIN: There are no significant rashes or ecchymosis NEUROPSYCHIATRIC: The patient is alert and oriented x3. Appears to be in a good mood. No tremors or rigidity noted. Data 09/11/24 04:50 09/11/24 04:50 Other Labs: Laboratory Last Values WBC 5.26 10^3/uL (3.29-11.43) 09/11/24 04:50 RBC 3.17 10^6/uL (3.85-5.65) L 09/11/24 04:50 Hgb 9.20 g/dL (11.27-16.99) L 09/11/24 04:50 Hct 29.5 % (36-47) L 09/11/24 04:50 MCV 93.1 fl (85-98) 09/11/24 04:50 MCH 29.0 pg (27-33) 09/11/24 04:50 MCHC 31.2 g/dL (30-55) 09/11/24 04:50 RDW 15.8 % (12.1-15.1) H 09/11/24 04:50 Plt Count 142 10^3/cmm (157-399) L 09/11/24 04:50 MPV 10.9 fL (7.4-10.4) H 09/11/24 04:50 Neut % (Auto) 53.8 % 09/11/24 04:50 Lymph % (Auto) 27.9 % 09/11/24 04:50 [place] % (Auto) 11.0 % 09/11/24 04:50 Eos % (Auto) 6.1 % 09/11/24 04:50 Baso % (Auto) 1.0 % 09/11/24 04:50 Neut # (Auto) 2.83 10^3/uL (1.8-7.7) 09/11/24 04:50 Lymph # (Auto) 1.5 10^3/uL (0.8-4.8) 09/11/24 04:50 [place] # (Auto) 0.6 10^3/uL (0.2-0.9) 09/11/24 04:50 Eos # (Auto) 0.3 10^3/uL (0.0-0.8) 09/11/24 04:50 Baso # (Auto) 0.1 10^3/uL (0.0-0.1) 09/11/24 04:50 Nucleated RBC % (auto) 0 % 09/11/24 04:50 Nucleated RBCs # 0.0 /100WBC 09/11/24 04:50 Haptoglobin 53.0 mg/L (30-200) 09/10/24 02:56 APTT 28.0 SECONDS (23.9-36.7) D 09/09/24 15:55 Sodium 134 mmol/L (136-145) L 09/11/24 04:50 Potassium 4.5 mmol/L (3.5-5.1) 09/11/24 04:50 Chloride 98 mmol/L (98-107) 09/11/24 04:50 Carbon Dioxide 28 mmol/L (22-29) 09/11/24 04:50 Anion Gap 12.5 (5-19) 09/11/24 04:50 BUN 20 mg/dL (6-20) 09/11/24 04:50 Creatinine 3.9 mg/dL (0.5-0.9) H 09/11/24 04:50 GFR Calculation 12.9 mL/min (90-130) L 09/11/24 04:50 Glucose 144 mg/dL (65-115) H 09/11/24 04:50 POC Glucose 164 mg/dL (70-110) H 09/11/24 11:08 Calculated Osmolality 283 mOsm/kg (285-295) L 09/11/24 04:50 Calcium 8.7 mg/dL (8.5-10.5) 09/11/24 04:50 Phosphorus 4.2 mg/dL (2.5-4.5) 09/11/24 04:50 Magnesium 2.0 mg/dL (1.7-2.3) 09/11/24 04:50 Iron 155 ug/dL (37-145) H 09/08/24 05:02 TIBC 178 mcg/dl 09/08/24 05:02 % Saturation 87.0 % (20-50) H 09/08/24 05:02 Unsat Iron Binding 23 ug/dL (112-347) L 09/08/24 05:02 Ferritin 1525 ng/mL (15-150) H 09/08/24 05:02 Total Bilirubin 0.3 mg/dL (0.15-1.2) 09/11/24 04:50 AST 13 U/L (0-32) 09/11/24 04:50 ALT 8 U/L (0-33) 09/11/24 04:50 Alkaline Phosphatase 116 U/L (35-105) H 09/11/24 04:50 Lactate Dehydrogenase 205 U/L (135-214) 09/10/24 02:56 Troponin T Baseline 233 ng/L (0-10) H* 09/07/24 04:04 Troponin T 120 Minute 251.2 ng/L (0-10) H 09/07/24 05:20 Delta Troponin T 18.2 ABS# (0-10) H* 09/07/24 05:20 NT-Pro-B Natriuret Pep > 59293 pg/mL (0-125) H 09/07/24 04:04 Total Protein 7.2 g/dL (6.6-8.7) 09/11/24 04:50 Albumin 3.8 g/dL (3.5-5.2) 09/11/24 04:50 Globulin 3.4 g/dL (1.3-4.6) 09/11/24 04:50 25-OH Vitamin D Total 6 ng/mL (30-100) L 09/08/24 05:02 Procalcitonin 0.17 ng/mL (0-0.5) 09/07/24 04:04 TSH 4.98 uIU/mL (0.27-4.20) H 09/08/24 05:02 PTH Intact 217.3 pg/mL (15-65) H 09/08/24 05:02 Calcium (PTH Intact) 8.9 mg/dL (8.5-10.5) 09/08/24 05:02 Urine Color Red (Yellow) A 09/09/24 02:15 Urine Appearance Cloudy (CLEAR) A 09/09/24 02:15 Urine pH Not Reportable 09/09/24 02:15 Ur Specific [place] Not Reportable 09/09/24 02:15 Urine Protein Not Reportable 09/09/24 02:15 Urine Glucose (UA) Not Reportable 09/09/24 02:15 Urine Ketones Not Reportable 09/09/24 02:15 Urine Blood Not Reportable 09/09/24 02:15 Urine Nitrate Not Reportable 09/09/24 02:15 Urine Bilirubin Not Reportable 09/09/24 02:15 Urine Urobilinogen Not Reportable 09/09/24 02:15 Ur Leukocyte Esterase Not Reportable 09/09/24 02:15 Urine RBC Too numerous to cnt /hpf (0-2) H 09/09/24 02:15 Urine WBC 5-10 /hpf (0-5) H 09/09/24 02:15 Ur Squamous Epith Cells 0-4 /hpf (0-5) H 09/09/24 02:15 Amorphous Sediment Not Reportable 09/09/24 02:15 Urine Bacteria Trace /hpf (NONE) 09/09/24 02:15 Urine Mucus 2+ /hpf 09/09/24 02:15 Hep Bs Antigen Non-reactive (Nonreactive) 09/07/24 04:04 Hep Bs Antibody 6.2 (11.5-1000) L 09/07/24 04:04 Hepatitis C Antibody Non-reactive (Nonreactive) 09/07/24 04:04 Blood Type O Positive 09/10/24 11:22 Rho(D) Type Rh positive 09/10/24 11:22 Antibody Screen Negative 09/10/24 11:22 Crossmatch See Detail 09/10/24 11:22 Micro: Microbiology 09/09/24 02:15 Urine Culture - Final Urine,Clean Catch 09/10/24 20:18 Occult Blood (FIT) - Final Stool - Stool Aspirate A&P Assessment and plan (1) Atherosclerotic heart disease of [place] coronary artery with unstable angina pectoris: Patient status post PCI of the ostial circumflex lesion, currently seems to be stable. She will continue her current medications. Qualifiers: [place] vs. transplanted heart: [place] heart Qualified Code(s): I25.110 - Atherosclerotic heart disease of [place] coronary artery with unstable angina pectoris (2) Right groin pain: Most likely because of the hypersensitivity/scarring from multiple previous interventions through right groin. It seems to be improving at this point. (3) ESRD (end stage renal disease): Patient had hemodialysis today but could not be completed because of the hypotension. Currently she is normotensive. (4) Uncontrolled type 1 diabetes mellitus: The blood sugar seems to be in the normal range at this time. May continue on the current management. Qualifiers: Glycemic state: with hyperglycemia Qualified Code(s): E10.65 - Type 1 diabetes mellitus with hyperglycemia (5) Hyperlipidemia: May continue on the current medications. Qualifiers: Hyperlipidemia type: mixed hyperlipidemia Qualified Code(s): E78.2 - Mixed hyperlipidemia Plan Agree with discharging home. Appointment the [facility] next week to be seen by the nurse practitioner. Appoint with me in the office in a month May continue on the current medications PDMP PDMP Reviewed: Not Reviewed Attestations Medical Necessity Statement*: Deferred to the primary Coding Level of Care Code 59420 Diagnoses Atherosclerosis of [place] coronary artery of [place] heart with unstable angina pectoris I25.110 [place] vs. transplanted heart: [place] heart Right groin pain R10.31 ESRD (end stage renal disease) N18.6 Uncontrolled type 1 diabetes mellitus with hyperglycemia E10.65 Glycemic state: with hyperglycemia Mixed hyperlipidemia E78.2 Hyperlipidemia type: mixed hyperlipidemia
[2024-09-11 11:18] LABS: Glucose Point of Care 164 mg/dL (70-110)
[2024-09-11] MEDS: ergocalciferol (vitamin D2) 50,000 Unit Capsule 50000 UNIT PO (12:56)
== END 2024-09-11 15:15 | disposition home or self-care (01) | DRG 321 ==
LOC: ER 06:30 → CSU 09:03
PROVIDERS: Family Medicine; Internal Medicine; Internal Medicine Cardiovascular Disease; Internal Medicine Nephrology; Admitting Provider Internal Medicine; Emergency Provider Family Medicine; PCP Nurse Practitioner Family; Visit Provider Internal Medicine
PROC: 027034Z Dilation of Coronary Artery, One Artery with Drug-eluting Intraluminal Device, Percutaneous Approach (ICD-10-PCS; 2024-09-09 07:00)
DX: I25.110 Atherosclerotic heart disease of native coronary artery with unstable angina pectoris (principal); I50.33 Acute on chronic diastolic (congestive) heart failure; N18.6 End stage renal disease; I13.2 Hypertensive heart and chronic kidney disease with heart failure and with stage 5 chronic kidney disease, or end stage renal disease; T82.855A Stenosis of coronary artery stent, initial encounter; E10.22 Type 1 diabetes mellitus with diabetic chronic kidney disease; Z99.2 Dependence on renal dialysis; I16.0 Hypertensive urgency; R31.9 Hematuria, unspecified; K52.9 Noninfective gastroenteritis and colitis, unspecified; J44.9 Chronic obstructive pulmonary disease, unspecified; D63.1 Anemia in chronic kidney disease; F41.9 Anxiety disorder, unspecified; E78.5 Hyperlipidemia, unspecified; Y71.8 Miscellaneous cardiovascular devices associated with adverse incidents, not elsewhere classified; I95.9 Hypotension, unspecified; R10.30 Lower abdominal pain, unspecified; Z87.891 Personal history of nicotine dependence; Z87.440 Personal history of urinary (tract) infections; Z79.82 Long term (current) use of aspirin; Z79.02 Long term (current) use of antithrombotics/antiplatelets
CPT/HCPCS: 36415; 36416; 36430; 71045; 74176; 80053; 81001; 82274; 82306; 82310; 82652; 82728; 82962; 83010; 83540; 83550; 83615; 83735; 83880; 83970; 84100; 84145; 84443; 84484; 85025; 85347; 85730; 86706; 86803; 86850; 86900; 86920; 87086; 87340; 90935; 92920; 92978; 93005; 93308; 93458; 93571; 93926; 96365; 96366; 96372; 96374; 96375; 96376; 99152; 99153; 99285; A9270; C1725; C1753; C1769; C1874; C1887; C1894; C9600; J1200; J1644; J1815; J2250; J2270; J2405; J3010; J3490; J7030; J9999; P9016; P9047; Q3014; Q9967

== ENCOUNTER 2024-09-20 00:46 | Emergency (ER) | payer MEDICARE, MEDICAID, SELFPAY ==
[2024-09-20 00:53] VITALS: BP 120/66; PULSE 98; RESP 15; TEMP 36.7; O2SAT 98; BMI 25.4
--- NOTE | 2024-09-20 02:00 | XRR_ITS ---
PROCEDURE INFORMATION: Exam: XR Right Knee Exam date and time: 09/20/2024 2:18 AM Age: 39 years old Clinical indication: Injury or trauma; Fall; Blunt trauma; Right; Patient tripped walking on side walk and fell onto both knees. C/O bilateral knee pain. Abrasions to anterior aspect of both knees. ; Additional info: Fall R knee pain TECHNIQUE: Imaging protocol: Radiologic exam of the right knee. Views: 3 views. COMPARISON: CR XR knee RT 1-2V [id number] 04/13/2024 11:03 AM FINDINGS: Bones/joints: No acute fracture or dislocation. Soft tissues: Vascular calcification. XR/XR knee RT 3V* [id number] IMPRESSION: No acute bony findings.
--- NOTE | 2024-09-20 02:00 | XRR_ITS ---
PROCEDURE INFORMATION: Exam: XR Left Knee Exam date and time: 09/20/2024 2:18 AM Age: 39 years old Clinical indication: Injury or trauma; Fall; Blunt trauma; Left; Patient tripped walking on side walk and fell onto both knees. C/O bilateral knee pain. Abrasions to anterior aspect of both knees. ; Additional info: Fall L knee pain TECHNIQUE: Imaging protocol: Radiologic exam of the left knee. Views: 3 views. COMPARISON: CR XR knee LT 1-2V [id number] 04/13/2024 11:01 AM FINDINGS: Bones/joints: No acute fracture or dislocation. Soft tissues: Vascular calcification. XR/XR knee LT 3V* [id number] IMPRESSION: No acute bony findings.
[2024-09-20 02:06] VITALS: RESP 16
[2024-09-20] MEDS: morphine 4 mg/mL SDV 1 mL IM (02:06)
[2024-09-20] MEDS: ondansetron 4 MG Tablet PO (02:06)
--- NOTE | 2024-09-20 02:20 | W.ED.EXTPRO ---
HPI - Extremity Problem General: Chief complaint: Extremity Injury, Lower Stated complaint: Fell on L knee Pain Time Seen by Provider: 09/20/24 01:48 History of Present Illness: 39-year-old female with a history of renal failure well-known to the emergency department service. She states that she fell off a sidewalk at [employer] this evening, scraping her knees on concrete. She has more pain on the left than on the right. She says the left knee is much more painful to try to bend or bear weight. Related Data Home Medications ?Medication ?Instructions ?Recorded ?Confirmed clonidine HCl 0.1 mg tablet See Rx Instructions .Route 11/27/23 09/07/24 .COMPLEX PRN Blood Pressure gabapentin 100 mg capsule 100 mg PO TID 12/27/23 09/07/24 insulin glargine 100 unit/mL (3 5 unit SUBCUT QPM 04/06/24 09/07/24 mL) subcutaneous pen (Lantus Solostar U-100 Insulin) clopidogrel 75 mg tablet 75 mg PO DAILY 04/28/24 09/07/24 bumetanide 1 mg tablet See Rx Instructions .Route .COMPLEX 09/05/24 09/07/24 carvedilol 3.125 mg tablet 3.125 mg PO BID 09/05/24 09/07/24 escitalopram oxalate 10 mg tablet 10 mg PO DAILY 09/07/24 09/07/24 Previous Rx's ?Medication ?Instructions ?Recorded blood-glucose meter,continuous #1 ea 06/12/22 (Dexcom G6 Marketing Education Teacher) blood-glucose sensor (Dexcom G6 #3 ea 06/12/22 Sensor device) blood-glucose transmitter (Dexcom #1 ea 06/12/22 G6 Transmitter device) sevelamer carbonate 800 mg tablet 800 mg PO TID #90 tabs 09/16/23 aspirin 81 mg tablet,delayed 81 mg PO QAM 30 days #30 tabs 03/28/24 release atorvastatin 40 mg tablet 40 mg PO BEDTIME 30 days #30 tabs 03/28/24 insulin aspart U-100 100 unit/mL 5 unit (0.05 mL) SUBCUT TID #15 mL 04/11/24 (3 mL) subcutaneous pen (Novolog FlexPen U-100 Insulin aspart) AFO brace #1 ea 04/20/24 diabetic shoes with 3 inserts #1 ea 04/20/24 lisinopril 40 mg tablet 20 mg (1/2 x 40 mg) PO QAM #1 tab 09/11/24 nifedipine 60 mg tablet,extended 60 mg PO DAILY #90 tabs 09/11/24 release 24 hr (Procardia XL) Allergies Allergy/AdvReac Type Severity Reaction Status Date / Time acetaminophen AdvReac Mild ADR-Gastrointestinal Verified 09/03/24 16:10 Upset PFSH ED PFSH: Medical History Headache Accelerated hypertension Uncontrolled type 1 diabetes mellitus ESRD (end stage renal disease) Dialysis complication Hypoglycemia Hemodialysis catheter dysfunction Hyperkalemia Colitis End stage renal disease on dialysis COPD (chronic obstructive pulmonary disease) Diabetes mellitus Transaminitis Intractable nausea and vomiting Hyperlipidemia HTN (hypertension) CHF (congestive heart failure), NYHA class III Pulmonary hypertension CAD (coronary artery disease) Neurogenic bladder COVID-19 Tobacco dependence Drug abuse Anemia Community acquired pneumonia Esophagitis Long-term insulin use History of pancreatitis Celiac disease Recurrent UTI Non-alcoholic fatty liver disease Arnold-Chiari malformation Diabetic gastroparesis -continue Reglan Diabetic neuropathy associated with type 1 diabetes mellitus Headache, common migraine, intractable, with status migrainosus Pleural effusion 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 History of lung surgery -s/p LLL lobectomy secondary to cavitary pneumonia (2016) History of endoscopy History of cholecystectomy Family History Grandfather Diabetes Mother CAD (coronary artery disease) Diabetes Heart disease Hypertension Brother Acute lymphoblastic leukemia (ALL) in child Grandmother Thyroid disease Denies family history of Colon cancer Ovarian cancer Prostate cancer Hyperlipidemia Breast cancer Uterine cancer Stroke Social History Smoking and tobacco/nicotine status: former use of tobacco/nicotine Quit status (tobacco/nicotine): has quit using Former quit date comment: She previously smoked <1/2 PPD, quit July 2023. Second hand smoke exposure: Yes Alcohol intake: never Substance/Drug Use: current Household members: children Housing: House Marital status: Single Current occupational status: unemployed Physical Exam Const: COMMON NORMALS: no acute distress GENERAL APPEARANCE: cooperative; not ill appearing and not frail appearing HENMT: COMMON NORMALS: normocephalic, atraumatic and Normal external nose present HEAD & SCALP: normocephalic and atraumatic FACE & SINUS: normal facial exam and face symmetric NOSE: Normal external nose present Eye: COMMON NORMALS: Equal, round and reactive pupils present and EOMs intact bilaterally PUPIL: Yes Equal, round and reactive pupils present Neck/C-Spine: GENERAL: Yes trachea midline Chest: CHEST: Yes Symmetrical chest wall rise Resp: COMMON NORMALS: normal respiratory effort, No retractions, No use of accessory muscles and clear to auscultation bilaterally AUSCULTATION: clear to auscultation bilaterally Cardio: COMMON NORMALS: regular rate and regular rhythm RATE: regular rate RHYTHM: regular rhythm GI: COMMON NORMALS: Normal to inspection, nondistended, normoactive bowel sounds present Neuro: JEET COMA SCALE: document GCS findings [place] coma scale eye opening: Spontaneous Jeet coma scale verbal response: Orientated Jeet coma scale motor response: Obey commands [place] coma scale total score: 15 SENSORY EXAM: Yes extremities (intact) Psych: COMMON NORMALS: speech normal SPEECH: Yes normal speech Skin: NARRATIVE SKIN EXAM: Examination right knee reveals no effusion. There is no bony tenderness. There are 2 abrasions present. No ecchymosis. No deformity. Pulses and sensation are normal. Exam the left knee reveals some medial joint line tenderness. There is no effusion. There is an abrasion present anteriorly. No deformity. Pulses are intact Course Vital Signs: Vital signs: Vital Signs Temperature 98.1 F 09/20/24 00:53 Pulse Rate 98 09/20/24 00:53 Respiratory Rate 16 09/20/24 02:06 Blood Pressure 120/66 09/20/24 00:53 Pulse Oximetry 98 09/20/24 00:53 Oxygen Delivery Me thod Room Air 09/20/24 00:53 MDM - Extremity (Nontraumatic) Medical Decision Making X-rays reveal no fracture no effusion. Wounds are cleaned and bandaged. She will be discharged home. XR interpretation done by ED provider, pending radiology final review Discharge Plan Discharge Patient Disposition: Home Clinical Impression: Contusion of knee, left, Abrasion of knee, bilateral Condition: Stable Prescriptions: No Action (DME) AFO brace See Rx Instructions .Route .MEDSUPPLY Qty: 1 0RF Rx Instructions: As directed to the shoe guys (DME) diabetic shoes with 3 inserts See Rx Instructions .Route .MEDSUPPLY Qty: 1 0RF Rx Instructions: As directed to the shoe guys ([facility] [place] Dexcom G6 Marketing Education Teacher Misc See Rx Instructions .Route Qty: 1 0RF Rx Instructions: As directed (DME) Dexcom G6 Sensor Device See Rx Instructions .Route Qty: 3 0RF Rx Instructions: As directed ([facility] [place]) Dexcom G6 Transmitter Device See Rx Instructions .Route Qty: 1 0RF Rx Instructions: As directed atorvastatin 40 mg tablet 40 mg PO BEDTIME 30 Days Qty: 30 0RF aspirin 81 mg tablet,delayed release (DR/EC) 81 mg PO QAM 30 Days Qty: 30 0RF insulin glargine [Lantus Solostar U-100 Insulin] 100 unit/mL (3 mL) Insulin Pen 5 unit SUBCUT QPM insulin aspart U-100 [Novolog FlexPen U-100 Insulin] 100 unit/mL (3 mL) insulin pen 5 unit SUBCUT TID Qty: 15 0RF Rx Instructions: sliding scale sevelamer carbonate 800 mg Tablet 800 mg PO TID Qty: 90 0RF clonidine HCl 0.1 mg tablet See Rx Instructions .ROUTE .COMPLEX PRN (Reason: Blood Pressure) Rx Instructions: TAKE 1 TABLET IF SYSTOLIC BLOOD PRESSURE IS GREATER THAN 160, REPEAT ONCE IF SYSTOLIC BLOOD PRESSURE IS STILL OVER 160 AFTER 1 HOUR. gabapentin 100 mg Capsule 100 mg PO TID clopidogrel 75 mg tablet 75 mg PO DAILY carvedilol 3.125 mg tablet 3.125 mg PO BID bumetanide 1 mg tablet See Rx Instructions .ROUTE .COMPLEX Rx Instructions: TAKE 1 TABLET BY MOUTH ONCE DAILY ON NON-DIALYSIS DAYS escitalopram oxalate 10 mg tablet 10 mg PO DAILY lisinopril 40 mg tablet 20 mg PO QAM Qty: 1 0RF nifedipine [Procardia XL] 60 mg tablet extended release 24hr 60 mg PO DAILY Qty: 90 0RF Discharge Orders: Discharge ED (Routine); Ordered 09/20/24 Ordered By: Jak Larose Referrals: Ladonna,Elizabeth, FASHION ILLUSTRATOR [Primary Care Provider] - 1-3 days Patient Instructions: Abrasion (ED), Knee Pain (ED), Opioid Safety, Pain Management Activity Restrictions/Additional Instructions: Clean wounds with soap and water. Do not soak. Keep bandaged until healing appropriately. Ice knees for pain. Return for any problems. Print Language: Cameroonian Coding Level of Care Code ED Investigation Division Lieutenant for Reji Chandler
== END 2024-09-20 03:12 | disposition home or self-care (01) ==
PROVIDERS: Emergency Provider Emergency Medicine; PCP Nurse Practitioner Family
DX: S80.02XA Contusion of left knee, initial encounter (principal); S80.212A Abrasion, left knee, initial encounter; S80.211A Abrasion, right knee, initial encounter; Z79.82 Long term (current) use of aspirin; Z79.4 Long term (current) use of insulin; Z79.02 Long term (current) use of antithrombotics/antiplatelets; Z87.891 Personal history of nicotine dependence; J44.9 Chronic obstructive pulmonary disease, unspecified; E10.22 Type 1 diabetes mellitus with diabetic chronic kidney disease; I13.2 Hypertensive heart and chronic kidney disease with heart failure and with stage 5 chronic kidney disease, or end stage renal disease; I50.9 Heart failure, unspecified; N18.6 End stage renal disease; I25.10 Atherosclerotic heart disease of native coronary artery without angina pectoris; W19.XXXA Unspecified fall, initial encounter
CPT/HCPCS: 73562; 96372; 99284; J2270; Q0162

== ENCOUNTER 2024-09-21 09:21 | Outpatient (CLI) | payer MEDICARE, MEDICAID, SELFPAY ==
--- NOTE | 2024-09-21 09:23 | MM_ITS ---
WS: [id number] Diagnostic RIGHT MAMMOGRAM WITH DIGITAL BREAST TOMOSYNTHESIS. RIGHT BREAST ULTRASOUND HISTORY: R BREAST MASS, mass seen on CT 08/23/2024 COMPARISON: CT 08/23/2024 RIGHT MAMMOGRAM: Spot compression views and true ML with digital breast tomosynthesis and SM. Breast composition: The breasts are heterogeneously dense, which may obscure small masses. Dialysis catheter scars portions of the RIGHT breast. Heterogeneous soft tissue. No dominant mass identified. There are few benign-appearing calcifications. There is mild trabecular thickening consistent with edema. RIGHT BREAST ULTRASOUND, complete 2-D and color Doppler imaging submitted. Ultrasound is performed of the entire breast. There are benign lymph nodes noted posteriorly. No suspicious mass or shadowing. There is mild subcutaneous edema. MM/MM diag RT tomosynthesis [id number] IMPRESSION: BI-RADS: 2 - Benign FOLLOW UP: 1 Year Follow-up
== END 2024-09-21 09:22 | disposition home or self-care (01) ==
PROVIDERS: PCP Nurse Practitioner Family; Visit Provider Nurse Practitioner Family
DX: N63.10 Unspecified lump in the right breast, unspecified quadrant (principal); R92.333 Mammographic heterogeneous density, bilateral breasts; N64.89 Other specified disorders of breast; R92.1 Mammographic calcification found on diagnostic imaging of breast; R59.0 Localized enlarged lymph nodes
CPT/HCPCS: 76641; 77061; G0279

== ENCOUNTER 2024-09-26 13:56 | Inpatient (IN) | payer MEDICARE, MEDICAID, SELFPAY ==
[2024-09-26] VITALS (32 sets, daily range): BP systolic 136–219; BP diastolic 57–112; PULSE 69–78; RESP 4–19; TEMP 36.6; O2SAT 88–100; BMI 27.5; BMI 27.2
--- NOTE | 2024-09-26 14:06 | XRR_ITS ---
PROCEDURE INFORMATION: Exam: XR Chest Exam date and time: 09/26/2024 2:20 PM Age: 39 years old Clinical indication: Pain; Chest pressure; Prior surgery; Surgery date: 6+ months; Surgery type: Dialysis cath; Coronary stents; Ll lobectom; Additional info: Cp TECHNIQUE: Imaging protocol: Radiologic exam of the chest. Views: 1 view. COMPARISON: CR (CHEST, ) 10/09/2024 16:23 FINDINGS: Tubes, catheters and devices: Support devices: Monitoring leads overlie the chest. A multi lumen central line is seen over the right chest extending to the SVC RA level. Lungs: Unremarkable. No consolidation. Pleural spaces: Increased density at the left base and blunting of the left angles suggests fibrosis and/or pleural effusion. Right lung is relatively clear. Heart/Mediastinum: Silhouette unchanged with slight cardiomegaly.. Bones/joints: Chronic left 5th rib changes noted. XR/XR chest 1V portable [id number] IMPRESSION: 1. Left basilar atelectasis mild left effusion. 2. Support device in good position.
--- NOTE | 2024-09-26 14:06 | ECG_ITS ---
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 Measurements Intervals [place] Rate: 71 P: 68 NM: 190 QRS: 1 QRSD: 118 T: 31 QT: 427 QTc: 467 Interpretive Statements SINUS RHYTHM POSSIBLE LEFT ATRIAL ENLARGEMENT [-0.1mV P-WAVE IN V1/V2] MODERATE INTRAVENTRICULAR CONDUCTION DELAY [110+ ms QRS DURATION] MODERATE T-WAVE ABNORMALITY, CONSIDER LATERAL ISCHEMIA [-0.1+ mV T-WAVE IN I/aVL/V5/V6] Compared to ECG 09/07/2024 11:48:37 Intraventricular conduction delay now present T-wave abnormality now present Possible ischemia now present Myocardial infarct finding no longer present Electronically Signed On 09-26-2024 18:11:15 CDT by Riccardo Burch M.D. [email or web address]
--- NOTE | 2024-09-26 14:07 | ED_ITS ---
HPI - Chest Pain 2 General: Chief Complaint: Chest Pain Stated Complaint: chest pain Time Seen by Provider: 09/26/24 14:06 Source: patient and family Mode of arrival: EMS Limitations: no limitations History of Present Illness: This patient presents from dialysis via EMS. She had almost completed her dialysis run this morning when she started developing central chest pain with some radiation down to her left arm. She states the symptoms are some improved but she still having some mild central chest pain. There is no associated diaphoresis or shortness of breath. She has just recently had balloon angioplasty and stent placed on 09 September. She states has been faithful to all her medications and has not had any recent illness etc. she denies fevers or chills or other constitutional complaints at this time. MD complaint: chest pain Pertinent past history: coronary artery disease Onset: during rest Pain location: substernal Pain radiation: left arm Quality: tightness Associated symptoms: Reports nausea; Deny abdominal pain or fever(s) Risk Factors: Coronary artery disease risk factors: smoking history Related Data Home Medications ?Medication ?Instructions ?Recorded ?Confirmed clonidine HCl 0.1 mg tablet See Rx Instructions .Route 11/27/23 09/26/24 .COMPLEX PRN Blood Pressure gabapentin 100 mg capsule 100 mg PO TID 12/27/2309/26 insulin glargine 100 unit/mL (3 5 unit SUBCUT QPM 03/2409/26/24 mL) subcutaneous pen (Lantus Solostar U-100 Insulin) clopidogrel 75 mg tablet 75 mg PO DAILY 04/28/2411/15 bumetanide 1 mg tablet See Rx Instructions .Route . COMPLEX 09/05/24 09/26/24 carvedilol 3.125 mg tablet 3.125 mg PO BID 09/05/24 escitalopram oxalate 10 mg tablet 10 mg PO DAILY 09/0709/26/24 amoxicillin 875 mg tablet 875 mg PO Q12H 09/26/2411/15 Previous Rx's ?Medication ?Instructions ?Recorded blood-glucose meter,continuous #1 ea 06/12/22 (Dexcom G6 Economic Research Assistant) blood-glucose sensor (Dexcom G6 #3 ea 06/12/22 Sensor device) blood-glucose transmitter (Dexcom #1 ea 06/12/22 G6 Transmitter device) sevelamer carbonate 800 mg tablet 800 mg PO TID #90 ta bs 09/16/23 aspirin 81 mg tablet,delayed 81 mg PO QAM 30 days #30 tabs 03/28/24 release atorvastatin 40 mg tablet 40 mg PO BEDTIME 30 days #30 tabs 03/28/24 insulin aspart U-100 100 unit/mL 5 unit (0.05 mL) SUBC UT TID #15 mL 04/11/24 (3 mL) subcutaneous pen (Novolog FlexPen U-100 Insulin aspart) AFO brace #1 ea 04/20/24 diabetic shoes with 3 inserts #1 ea 04/20/24 lisinopril 40 mg tablet 20 mg (1/2 x 40 mg) PO QAM # 1 tab 09/11/24 nifedipine 60 mg tablet,extended 60 mg PO DAILY #90 ta bs 09/11/24 release 24 hr (Procardia XL) Allergies Allergy/AdvReac Type Severity Reaction Status Date / Time acetaminophen AdvReac Mild ADR-Gastrointestinal Verified 09/26/24 14:08 Upset Review of Systems 2 Const: Denies: fever(s) or chills ENMT: Denies: throat pain, odynophagia, nasal discharge or nasal congestion GI: Reports: nausea; Denies: abdominal pain or diarrhea : Reports: oliguria; Denies: flank pain Musc: Denies: neck pain, back pain, extremity pain or extremity swelling Skin/Breast: Denies: rash or pruritus Neuro: Denies: headache(s), numbness in extremities or weakness in extremities Ramiro/Lymph: Reports: easy bruising and easy bleeding PFSH ED 2 PFSH: Medical History Headache Accelerated hypertension Uncontrolled type 1 diabetes mellitus ESRD (end stage renal disease) Dialysis complication Hypoglycemia Hemodialysis catheter dysfunction Hyperkalemia Colitis End stage renal disease on dialysis COPD (chronic obstructive pulmonary disease) Diabetes mellitus Transaminitis Intractable nausea and vomiting Hyperlipidemia HTN (hypertension) CHF (congestive heart failure), NYHA class III Pulmonary hypertension CAD (coronary artery disease) Neurogenic bladder COVID-19 Tobacco dependence Drug abuse Anemia Community acquired pneumonia Esophagitis Long-term insulin use History of pancreatitis Celiac disease Recurrent UTI Non-alcoholic fatty liver disease Arnold-Chiari malformation Diabetic gastroparesis -continue Reglan Diabetic neuropathy associated with type 1 diabetes mellitus Headache, common migraine, intractable, with status migrainosus Pleural effusion 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 History of lung surgery -s/p LLL lobectomy secondary to cavitary pneumonia (2017) History of endoscopy History of cholecystectomy Family History Grandfather Diabetes Mother CAD (coronary artery disease) Diabetes Heart disease Hypertension Brother Acute lymphoblastic leukemia (ALL) in child Grandmother Thyroid disease Denies family history of Colon cancer Ovarian cancer Prostate cancer Hyperlipidemia Breast cancer Uterine cancer Stroke Social History Smoking and tobacco/nicotine status: former use of tobacco/nicotine Quit status (tobacco/nicotine): has quit using Former quit date comment: She previously smoked <1/2 PPD, quit July 2023. Second hand smoke exposure: Yes Alcohol intake: never Substance/Drug Use: current Household members: children Housing: House Marital status: Single Current occupational status: unemployed Physical Exam 2 Narrative: EXAM NARRATIVE: Slightly anxious but appears to be in no acute distress makes good eye contact and answers questions appropriately. Const: COMMON NORMALS: average body habitus and patient oriented x3 GENERAL APPEARANCE: cooperative, comfortable and anxious HENMT: COMMON NORMALS: atraumatic, Normal nasal mucous membranes and turbinates present, moist oral mucous membranes and oropharynx normal HEAD & SCALP: atraumatic NOSE: Normal nasal mucous membranes and turbinates present Eye: COMMON NORMALS: Equal, round and reactive pupils present, EOMs intact bilaterally and conjunctivae normal CONJUNCTIVA: Yes conjunctivae normal P UPIL: Yes Equal, round and reactive pupils present Neck/C-Spine: COMMON NORMALS: no lymphadenopathy, no JVD and No carotid bruits Chest: COMMONS NORMALS: normal inspection of the chest CHEST: Yes tenderness (Tenderness to palpation over the anterior superior chest. No ecchymosis sk) Resp: COMMON NORMALS: normal respiratory effort, No retractions, No use of accessory muscles and clear to auscultation bilaterally EFFORT & INSPECTION: Yes able to speak in complete sentences AUSCULTATION: clear to auscultation bilaterally Cardio: COMMON NORMALS: no JVD, regular rate, regular rhythm, No murmurs present (Cardio) and Peripheral pulses 2+ throughout RATE: regular rate R HYTHM: regular rhythm PERIPHERAL PULSES: Peripheral pulses 2+ throughout GI: COMMON NORMALS: Normal to inspection, nondistended, normoactive bowel sounds present, Soft to palpation and non-tender PALPATION: Yes Soft to palpation Back/Pelvis: COMMON NORMALS: thoracic and lumbar spine normal to inspection, no thoracic nor lumbar tenderness and thoraco-lumbar ROM normal Extremity: COMMON NORMALS: capillary refill normal, no calf tenderness and no pedal edema NARRATIVE EXTREMITY EXAM: Left upper arm has a clamp over the access site for her dialysis this morning. No active bleeding. Remainder of extremity exam is unremarkable. Neuro: COMMON NORMALS: patient oriented x3, moves all extremities, no focal motor deficits and no sensory deficits noted Psych: COMMON NORMALS: mental status grossly normal Skin: COMMON NORMALS: no rashes or lesions noted, no wounds and turgor normal GENERAL SKIN EXAM: no rashes or lesions noted and turgor normal Course 2 Reevaluation(s): Reevaluation #1: Patient's second troponin is unchanged. However she is continue to have pain again and her blood pressure is elevated will go ahead and give her sublingual nitroglycerin as this evening to relieve her symptoms. We may consider placing her in observation status. Time: 19:17 Reevaluation #2: The patient's pressure is markedly improved with 2 sublingual nitroglycerin but she is still continues to have central chest pain with radiation to her left jaw and shoulder. Time: 19:39 Consultations: Consultation #1: Discussed with Dr. Juarez on-call accounting coordinator and reviewed her current presentation symptoms and findings. Because of her continued chest pain and labile blood pressures we will go and place her on a nitroglycerin drip plan for echocardiogram and additional studies as indicated. Time: 19:49 Consultation #2: Discussed with the overnight hospitalist who agreed to admit the patient for therapy, cardiology consultation and other treatment as indicated. Time: 19:49 Vital Signs: Vital signs: Vital Signs Temperature 97.8 F 09/26/24 13:58 Pulse Rate 76 09/26/24 19:35 Respiratory Rate 18 09/26/24 19:35 Blood Pressure 147/82 09/26/24 19:35 Pulse Oximetry 94 09/26/24 19:35 Oxygen Delivery Me thod Nasal Cannula 09/26/24 19:35 Oxygen Flow Rate 2 09/26/24 19:35 MDM - Chest Pain Medical Decision Making Patient with known history of coronary disease and renal failure on dialysis presented as noted in HPI. She had balloon dilatation with stent placed meant of 2 vessels on 09 September of this year after developing chest pain. The concern that arises today is possible restenosis of prior stent versus other potential coronary artery stenosis versus other potential etiology of her chest pain. Workup ensued which revealed EKGs which did not show any ischemic changes without any dynamic changes as well. She did have troponins which were in the mid 200 range but did not have a significant rise in troponin during her emergency department stay. She had continued pain and had elevations in blood pressure that responded to nitroglycerin. Her pain was difficult control and therefore she was begun on a nitroglycerin drip to control symptoms and cardiology was consulted who recommended placing her on the hospitalist service consulting cardiology for assistance for potential restudy of her coronary arteries. Medical Records I reviewed the patient's medical records. Coronary angio note reviewed of 09/10/2023 revealing angioplasty of 2 vessels. Is also noted that her troponins stayed in the 200-300 range prior to this procedure. Lab Data I reviewed the patient's lab results. 09/26/24 14:15 09/26/24 14:15 Radiology Impressions Chest X-Ray 09/26/24 14:06 IMPRESSION: 1. Left basilar atelectasis mild left effusion. 2. Support device in good position. Laboratory Results WBC 5.74 10^3/uL (3.29-11.43) 09/26/24 14:15 RBC 3.42 10^6/uL (3.85-5.65) L 09/26/24 14:15 Hgb 10.20 g/dL (11.27-16.99) L 09/26/24 14:15 Hct 31.9 % (36-47) L 09/26/24 14:15 MCV 93.3 fl (85-98) 09/26/24 14:15 MCH 29.8 pg (27-33) 09/26/24 14:15 MCHC 32.0 g/dL (30-55) 09/26/24 14:15 RDW 15.0 % (12.1-15.1) 09/26/24 14:15 Plt Count 148 10^3/cmm (157-399) L 09/26/24 14:15 MPV 10.3 fL (7.4-10.4) 09/26/24 14:15 Neut % (Auto) 65.1 % 09/26/24 14:15 Lymph % (Auto) 22.3 % 09/26/24 14:15 [place] % (Auto) 5.2 % 09/26/24 14:15 Eos % (Auto) 6.1 % 09/26/24 14:15 Baso % (Auto) 1.0 % 09/26/24 14:15 Neut # (Auto) 3.73 10^3/uL (1.8-7.7) 09/26/24 14:15 Lymph # (Auto) 1.3 10^3/uL (0.8-4.8) 09/26/24 14:15 [place] # (Auto) 0.3 10^3/uL (0.2-0.9) 09/26/24 14:15 Eos # (Auto) 0.4 10^3/uL (0.0-0.8) 09/26/24 14:15 Baso # (Auto) 0.1 10^3/uL (0.0-0.1) 09/26/24 14:15 Nucleated RBC % (auto) 0 % 09/26/24 14:15 Nucleated RBCs # 0.0 /100WBC 09/26/24 14:15 Sodium 135 mmol/L (136-145) L 09/26/24 14:15 Potassium 3.6 mmol/L (3.5-5.1) 09/26/24 14:15 Chloride 96 mmol/L (98-107) L 09/26/24 14:15 Carbon Dioxide 31 mmol/L (22-29) H 09/26/24 14:15 Anion Gap 11.6 (5-19) 09/26/24 14:15 BUN 9 mg/dL (6-20) 09/26/24 14:15 Creatinine 2.3 mg/dL (0.5-0.9) H 09/26/24 14:15 GFR Calculation 23.7 mL/min (90-130) L 09/26/24 14:15 Glucose 96 mg/dL (65-115) 09/26/24 14:15 Calculated Osmolality 279 mOsm/kg (285-295) L 09/26/24 14:15 Calcium 8.8 mg/dL (8.5-10.5) 09/26/24 14:15 Total Bilirubin 0.7 mg/dL (0.15-1.2) 09/26/24 14:15 AST 25 U/L (0-32) 09/26/24 14:15 ALT 22 U/L (0-33) 09/26/24 14:15 Alkaline Phosphatase 156 U/L (35-105) H 09/26/24 14:15 Troponin T Baseline 248 ng/L (0-10) H* 09/26/24 14:15 Troponin T 120 Minute 246.5 ng/L (0-10) H 09/26/24 16:56 Delta Troponin T -1.5 ABS# (0-10) L 09/26/24 16:56 Total Protein 8.1 g/dL (6.6-8.7) 09/26/24 14:15 Albumin 4.3 g/dL (3.5-5.2) 09/26/24 14:15 Globulin 3.8 g/dL (1.3-4.6) 09/26/24 14:15 All radiology interpretation(s) finalized by discharge EKG Data EKG 1: I personally reviewed and interpreted this EKG as follows: Interpretation: Contemporaneous review of resting EKG reveals a ventricular rate of 71 bpm. Normal SD interval, QRS duration, corrected QT interval. Normal axis. T wave flattening in V5 and V6. These changes on present on prior EKGs. No acute ischemic changes this time. EKG 2: I personally reviewed and interpreted this EKG as follows: Interpretation: Second EKG obtained this visit reveals ventricular rate of 69 bpm. Consistent with sinus rhythm. Normal SD interval, QRS duration, corrected QT interval. Normal axis. No dynamic changes from previous EKG this visit. Discharge Plan Discharge Condition: Stable Prescriptions: No Action (DME) AFO brace See Rx Instructions .Route .MEDSUPPLY Qty: 1 0RF Rx Instructions: As directed to the shoe guys (DME) diabetic shoes with 3 inserts See Rx Instructions .Route .MEDSUPPLY Qty: 1 0RF Rx Instructions: As directed to the edelmira [facility]rieta (DME) Dexcom G6 Economic Research Assistant Misc See Rx Instructions .Route Qty: 1 0RF Rx Instructions: As directed (DME) Dexcom G6 Sensor Device See Rx Instructions .Route Qty: 3 0RF Rx Instructions: As directed (DME) Dexcom G6 Transmitter Device See Rx Instructions .Route Qty: 1 0RF Rx Instructions: As directed atorvastatin 40 mg tablet 40 mg PO BEDTIME 30 Days Qty: 30 0RF aspirin 81 mg tablet,delayed release (DR/EC) 81 mg PO QAM 30 Days Qty: 30 0RF insulin glargine [Lantus Solostar U-100 Insulin] 100 unit/mL (3 mL) Insulin Pen 5 unit SUBCUT QPM insulin aspart U-100 [Novolog FlexPen U-100 Insulin] 100 unit/mL (3 mL) insulin pen 5 unit SUBCUT TID Qty: 15 0RF Rx Instructions: sliding scale amoxicillin 875 mg tablet 875 mg PO Q12H sevelamer carbonate 800 mg Tablet 800 mg PO TID Qty: 90 0RF clonidine HCl 0.1 mg tablet See Rx Instructions .ROUTE .COMPLEX PRN (Reason: Blood Pressure) Rx Instructions: TAKE 1 TABLET IF SYSTOLIC BLOOD PRESSURE IS GREATER THAN 160, REPEAT ONCE IF SYSTOLIC BLOOD PRESSURE IS STILL OVER 160 AFTER 1 HOUR. gabapentin 100 mg Capsule 100 mg PO TID clopidogrel 75 mg tablet 75 mg PO DAILY carvedilol 3.125 mg tablet 3.125 mg PO BID bumetanide 1 mg tablet See Rx Instructions .ROUTE .COMPLEX Rx Instructions: TAKE 1 TABLET BY MOUTH ONCE DAILY ON NON-DIALYSIS DAYS escitalopram oxalate 10 mg tablet 10 mg PO DAILY lisinopril 40 mg tablet 20 mg PO QAM Qty: 1 0RF nifedipine [Procardia XL] 60 mg tablet extended release 24hr 60 mg PO DAILY Qty: 90 0RF Referrals: Elizabeth Dougherty FNP [Primary Care Provider] - Print Language: Romansh Coding Level of Care Code ED Welfare Visitor for Reji Chandler
[2024-09-26 14:33] LABS: Basophils # 0.1 10^3/uL (0.0-0.1); Eosinophils # 0.4 10^3/uL (0.0-0.8); Eosinophils % 6.1 %; Hematocrit 31.9 % (36-47); Lymphocytes # 1.3 10^3/uL (0.8-4.8); Lymphocytes % 22.3 %; Mean Corpuscular Hemoglobin 29.8 pg (27-33); Mean Corpuscular Volume 93.3 fl (85-98); Mean Platelet Volume 10.3 fL (7.4-10.4); Monocytes # 0.3 10^3/uL (0.2-0.9); Monocytes % 5.2 %; Neutrophils # 3.73 10^3/uL (1.8-7.7); Neutrophils % 65.1 %; Nucleated Red Blood Cells % 0 %; Platelet Count 148 10^3/cmm (157-399); Red Blood Count 3.42 10^6/uL (3.85-5.65); White Blood Count 5.74 10^3/uL (3.29-11.43)
[2024-09-26 14:56] LABS: Alanine Aminotransferase 22 U/L (0-33); Albumin Level 4.3 g/dL (3.5-5.2); Alkaline Phosphatase 156 U/L (35-105); Blood Urea Nitrogen 9 mg/dL (6-20); Calcium 8.8 mg/dL (8.5-10.5); Carbon Dioxide 31 mmol/L (22-29); Chloride 96 mmol/L (98-107); Creatinine Clr Calc Pharmacy 27.6868; Globulin 3.8 g/dL (1.3-4.6); Glomerular Filtration Rate 23.7 mL/min (90-130); Glucose 96 mg/dL (65-115); Osmolality Calculated 279 mOsm/kg (285-295); Sodium 135 mmol/L (136-145); Total Bilirubin 0.7 mg/dL (0.15-1.2); Total Protein 8.1 g/dL (6.6-8.7)
[2024-09-26 14:57] LABS: Anion Gap 11.6 (5-19); Aspartate Amino Transferase 25 U/L (0-32); Potassium 3.6 mmol/L (3.5-5.1); Troponin(5th) Baseline 248 ng/L (0-10)
[2024-09-26] MEDS: famotidine 20 mg/2 mL INJ IVP (14:58)
[2024-09-26] MEDS: morphine 4 mg/mL SDV 1 mL 2 MG IVP (14:58)
--- NOTE | 2024-09-26 16:06 | ECG_ITS ---
[facility] Test Date: 2024-09-26 Pat Name: Donita Aguilar Department: Room: Gender: Female Rug Renovator: : 1985 Requested By: Vikas Ramirez Order Number: [id number] Faviola MD: JOSEFA TALLEY Measurements Intervals [place] Rate: 69 P: 43 MD: 176 QRS: -4 QRSD: 113 T: 43 QT: 424 QTc: 457 Interpretive Statements SINUS RHYTHM POSSIBLE LEFT ATRIAL ENLARGEMENT [-0.1mV P-WAVE IN V1/V2] MODERATE INTRAVENTRICULAR CONDUCTION DELAY [110+ ms QRS DURATION] ST DEVIATION AND MODERATE T-WAVE ABNORMALITY, CONSIDER LATERAL ISCHEMIA [-0.1+ mV T-WAVE IN I/aVL/V5/V6] Compared to ECG 09/07/2024 11:48:37 Intraventricular conduction delay now present T-wave abnormality now present Possible ischemia now present Myocardial infarct finding no longer present Electronically Signed On 09-27-2024 22:06:07 CDT by JOSEFA TALLEY [email or web address]
--- NOTE | 2024-09-26 16:38 | PC.NURSE ---
called lab in regards to 2 hr trop that needs draw.
[2024-09-26 17:24] LABS: Troponin 5 2HR Delta -1.5 ABS# (0-10)
[2024-09-26 17:25] LABS: Troponin 5 2HR 246.5 ng/L (0-10)
[2024-09-26] MEDS: morphine 4 mg/mL SDV 1 mL IVP (17:47)
--- NOTE | 2024-09-26 18:37 | PC.NURSE ---
pt O2 sat dropped to 88% after morphine was admin. pt put on 1L NC. Dr. Ramirez notified. Pt O2 sat on 94% on 1L NC.
[2024-09-26] MEDS: nitroglycerin 0.4 mg sublingual Tablet SUBLINGUAL ×2 (19:24→19:29)
--- NOTE | 2024-09-26 19:40 | PC.NURSE ---
PT was given 1 tab sublingual nitro, vs monitored with cardiac monitoring as well, pt states the first nitro did nothing for her chest pain, center that radiates to neck and jaw rated 9, a second nitro given 5 minutes later, after second nitro pt c/o shortness of breath, pt sat up in bed and Dr. Ramirez notified.
[2024-09-26] MEDS: HYDROmorphone 0.5 MG/0.5 ML INJ IVP (19:45)
--- NOTE | 2024-09-26 19:46 | PM.HP ---
Providers/Chief Complaint Admitting Physician: Anjali Mejia MD Primary Care Provider: SUZANNE Dias Chief Complaint: chest pain History of Present Illness Patient's father and the patient's son were in the room at the time of the interview. Donita Aguilar is a 39 year old female w/ oliguric ESRD on TTS HD via a R. IJ permcath and LUE AVG, CAD s/p 8 stents, including one OLENA to the LCx on 09/09/2024 for an NSTEMI, chronic HFpEF, IDDM2, chronic diarrhea, & Anxiety d/o, who was brought to the ED on 09/26/2024 w/ complaints of chest pain. The patient states that she was at HD, and 6 mins before HD ended, she suddenly woke up with substernal non-pleuritic, non-positional, chest pain that radiating to her jaw. She tried to breathe through it but could not. Associated w/ nausea, vomiting x 1, SOB. The patient stated that she vomited right before she left for dialysis this AM, but she thought that it was because she woke up late, and was running late to HD and felt anxious. Also associated w/ her CP is the endorsment of feeling light headed as if she were going to lose consciousness, but as she tried to control her respirations, she sensation that she was going to lose consciousness subsided. She also endorses palpitations, mild non-productive cough, She denies visual disturbances, f/c. She states that the episodes of CP lasted about 20mins before subsiding and resuming. She was given SL NTG x 1 while at dialysis and another SL NTG x 1 by EMS, with no improvement in her symptoms. She was also given 324mg Aspirin x 1. In the ED her vital signs were significant for elevated BP as high as 197/103 mmHg. Her CXR showed L. Basilar atelectasis with a mild L. Pleural effusion. Her initial EKG showed NSR with no ST changes, but her subsequent to EKG showed TWI in V5 and V6 with questionable ST depressions, and an ~1mm ST depression in lead I, and QTc of 470. She was given sublingual NTG x 2 w/ no improvement in her symptoms. She was then given a total of 6 mg of morphine IVP and Dilaudid 0.5 mg IVP x 1. Cardiology was consulted who recommended admission. Review of Systems Const: Reports: change in appetite (poor) and malaise; Denies: fever(s), chills or diaphoresis Eyes: Denies: change in vision Card: Reports: chest pain, palpitations, lightheadedness and pre-syncope; Denies: edema or syncope Resp: Reports: dyspnea; Denies: non-productive cough or wheezing GI: Reports: nausea and vomiting; Denies: abdominal pain, constipation or hematochezia : Denies: dysuria, urinary frequency, urinary urgency or hematuria Musc: Denies: joint pain or muscle cramps Skin/Breast: Denies: rash or new lesions Neuro: Denies: headache(s) or dizziness Psych: Reports: anxiety and depression; Denies: suicidal ideation or homicidal ideation Endo: Reports: cold intolerance Ramiro/Lymph: Reports: easy bleeding; Denies: easy bruising All/Imm: Denies: food intolerance Medications/Allergies Home Medications ?Medication ?Instructions ?Recorded ?Confirmed ?Last Taken ?Type blood-glucose meter,continuous #1 ea 06/12/22 09/26/24 Unknown Rx (Dexcom G6 Boiler Or Engine Operator) blood-glucose sensor (Dexcom G6 #3 ea 06/12/22 09/26/24 Unknown Rx Sensor device) blood-glucose transmitter (Dexcom #1 ea 06/12/22 09/26/24 Unknown Rx G6 Transmitter device) sevelamer carbonate 800 mg tablet 800 mg PO TID #90 tabs 09/16/23 09/26/24 09/26/24 Rx clonidine HCl 0.1 mg tablet See Rx Instructions .Route 11/27/23 09/26/24 Unknown History .COMPLEX PRN Blood Pressure gabapentin 100 mg capsule 100 mg PO TID 12/27/23 09/26/24 09/26/24 History aspirin 81 mg tablet,delayed 81 mg PO QAM 30 days #30 tabs 03/28/24 09/26/24 09/26/24 Rx release atorvastatin 40 mg tablet 40 mg PO BEDTIME 30 days #30 tabs 03/28/24 09/26/24 09/25/24 Rx insulin glargine 100 unit/mL (3 5 unit SUBCUT QPM 04/06/24 09/26/24 09/26/24 History mL) subcutaneous pen (Lantus Solostar U-100 Insulin) insulin aspart U-100 100 unit/mL 5 unit (0.05 mL) SUBCUT TID #15 mL 04/11/24 09/26/24 09/26/24 Rx (3 mL) subcutaneous pen (Novolog FlexPen U-100 Insulin aspart) AFO brace #1 ea 04/20/24 09/26/24 Unknown Rx diabetic shoes with 3 inserts #1 ea 04/20/24 09/26/24 Unknown Rx clopidogrel 75 mg tablet 75 mg PO DAILY 04/28/24 09/26/24 09/26/24 History bumetanide 1 mg tablet See Rx Instructions .Route .COMPLEX 09/05/24 09/26/24 09/06/24 History carvedilol 3.125 mg tablet 3.125 mg PO BID 09/05/24 09/26/24 09/26/24 History escitalopram oxalate 10 mg tablet 10 mg PO DAILY 09/07/24 09/26/24 09/26/24 History lisinopril 40 mg tablet 20 mg (1/2 x 40 mg) PO QAM #1 tab 09/11/24 09/26/24 09/26/24 Rx nifedipine 60 mg tablet,extended 60 mg PO DAILY #90 tabs 09/11/24 09/26/24 09/26/24 Rx release 24 hr (Procardia XL) amoxicillin 875 mg tablet 875 mg PO Q12H 09/26/24 09/26/24 09/26/24 History Allergies Allergy/AdvReac Type Severity Reaction Status Date / Time acetaminophen AdvReac Mild ADR-Gastrointestinal Verified 09/26/24 14:08 Upset PFSH Acute PFSH: Medical History Headache Accelerated hypertension Uncontrolled type 1 diabetes mellitus ESRD (end stage renal disease) Dialysis complication Hypoglycemia Hemodialysis catheter dysfunction Hyperkalemia Colitis End stage renal disease on dialysis COPD (chronic obstructive pulmonary disease) Diabetes mellitus Transaminitis Intractable nausea and vomiting Hyperlipidemia HTN (hypertension) CHF (congestive heart failure), NYHA class III Pulmonary hypertension CAD (coronary artery disease) Neurogenic bladder COVID-19 Tobacco dependence Drug abuse Anemia Community acquired pneumonia Esophagitis Long-term insulin use History of pancreatitis Celiac disease Recurrent UTI Non-alcoholic fatty liver disease Arnold-Chiari malformation Diabetic gastroparesis -continue Reglan Diabetic neuropathy associated with type 1 diabetes mellitus Headache, common migraine, intractable, with status migrainosus Pleural effusion 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 History of lung surgery -s/p LLL lobectomy secondary to cavitary pneumonia (2017) History of endoscopy History of cholecystectomy Family History Grandfather Diabetes Mother CAD (coronary artery disease) Diabetes Heart disease Hypertension Brother Acute lymphoblastic leukemia (ALL) in child Grandmother Thyroid disease Denies family history of Colon cancer Ovarian cancer Prostate cancer Hyperlipidemia Breast cancer Uterine cancer Stroke Social History Smoking and tobacco/nicotine status: former use of tobacco/nicotine Quit status (tobacco/nicotine): has quit using Former quit date comment: She previously smoked <1/2 PPD, quit July 2023. Second hand smoke exposure: Yes Alcohol intake: never Substance/Drug Use: current Household members: children Housing: House Marital status: Single Current occupational status: unemployed Female Reproductive History: Date of last menstrual period: 09/26/24 Vitals/I&O/Wt Last Vital Signs Temp 97.8 F 09/26/24 13:58 Pulse 73 09/26/24 19:39 Resp 14 09/26/24 19:39 BP 159/96 09/26/24 19:39 Pulse Ox 97 09/26/24 19:39 O2 Del Method Nasal Cannula 09/26/24 19:39 O2 Flow Rate 2 09/26/24 19:39 Weight last 48 hrs Weight 63.957 kg Physical Exam Narrative: Constitutional: GENERAL APPEARANCE: cooperative, comfortable and appears older than stated age; not combative, not disheveled, ill appearing and frail appearing HENT: HEAD & SCALP: normocephalic and atraumatic; NOSE: external nose not normal EXTERNAL EAR: no external ears normal MOUTH: Normal oral and palatal mucosa present THROAT: posterior oropharynx normal Eye: PERRL, EOMI, normal conjunctiva b/l Neck: normal visual inspection, trachea midline, No anterior neck swelling, No tracheal deviation, no submandibular swelling, Thyroid normal , cervical ROM normal Lymph: no cervical, supraclavicular LAD Resp: no use of accessory muscles, CTAB, no w/r/r Cardio: RRR, 2/6 non-radiating systolic murmur in the RUSB, no r/g, or clicks. 2+ radial and DP pulses. GI: normoactive bowel sounds, non-tender, non-distended, no guarding, no rigidity, no rebound tenderness, no hepatosplenomegaly. : (-) Sanders in place draining urine Back/Pelvis: Deferred Extremity: No clubbing, No cyanosis and No edema Neuro: AO to person, place and time. CN normal except as noted. Normal gait present. 5/5 motor strength present throughout. Normal motor muscle tone present throughout. No tremor noted. No motor abnormalities present. No motor fasciculations present Psych: APPEARANCE: Yes grossly normal ATTITUDE: Yes calm and Yes engaged ACTIVITY/MOTOR BEHAVIOR: Yes appropriate eye contact SPEECH: Yes normal speech MOOD & AFFECT: Yes euthymic mood THOUGHT PROCESS: Normal thought process present THOUGHT CONTENT: Yes Normal thought content present ATTENTION/CONCENTRATION: Yes attention grossly intact MEMORY/COGNITION: Yes memory grossly intact Data 09/26/24 14:15 09/26/24 14:15 A&P Assessment and plan (1) Hypertensive emergency: (2) End stage renal disease on dialysis: (3) Chest pain: Qualifiers: Chest pain type: precordial pain Qualified Code(s): R07.2 - Precordial pain Plan Donita Aguilar is a 39 year old female w/ oliguric ESRD on TTS HD via a R. IJ permcath and LUE AVG, CAD s/p 8 stents, including one OLENA to the LCx on 09/09/2024 for an NSTEMI, chronic HFpEF, IDDM2, chronic diarrhea, & Anxiety d/o, who was brought to the ED on 09/26/2024 w/ complaints of chest pain. #Chest pain: Although atypical, she does have risk factors. #CAD: Continue Aspirin, Plavix, Carvedilol continue NTG drip, Start heparin drip. F/u A1c, lipid panel, UA/UDS, ECHO. Her TSH on 09/09/2024 was 4.98. #Hypertensive Emergency: Continue NTG drip. #IDDM2: Held her insulin glargine. Ordered low dose SSI for meals and bedtime. #Neuropathy: Continue Gabapentin. #oliguric ESRD on TTS HD via a R. IJ permcath and LUE AVG - She started using her LUE AVG today. - Defer Nephrology consult to the hospitalist. #Chronic Anemia: Will monitor #Anxiety d/o: After discussion w/ the patient, increased her Escitalopram to 20mg. #chronic diarrhea: not an issue during this admission DVT ppx: Heparin drip. PDMP PDMP Reviewed: Not Reviewed Attestations Medical Necessity Statement*: The patient needs to be hospitalized for greater than 2 midnights for her hypertensive emergency and for further evaluation of her chest pain given her risk factors. Time Spent in Patient Care: >70mins was spent on patient interview and physical exam, chart review, review of labs and images, formulation of plan, coordination of care, and communication of the plan to the patient and her father who was in the room. Coding Level of Care Code 18757 High Time for a total of 70 minutes, includes reviewing past or interval history, examining/interviewing patient, placing orders, counseling patient/family/other support, updating patient/family/other support, discussing plan of care with staff, communicating with other healthcare providers, documenting encounter and coordinating care Diagnoses Hypertensive emergency I16.1 End stage renal disease on dialysis N18.6; Z99.2 Precordial pain R07.2 Chest pain type: precordial pain
--- NOTE | 2024-09-26 19:54 | ECG_ITS ---
[facility] Test Date: 2024-09-26 Pat Name: Donita Aguilar Department: Room: Gender: Female Review Assistant: : 1985 Requested By: Vikas Ramirez Order Number: [id number] Faviola MD: JOSEFA TALLEY Measurements Intervals [place] Rate: 69 P: 56 VT: 189 QRS: 0 QRSD: 114 T: -2 QT: 438 QTc: 470 Interpretive Statements SINUS RHYTHM POSSIBLE LEFT ATRIAL ENLARGEMENT [-0.1mV P-WAVE IN V1/V2] MODERATE INTRAVENTRICULAR CONDUCTION DELAY [110+ ms QRS DURATION] NONSPECIFIC ST & T-WAVE ABNORMALITY Compared to ECG 09/26/2024 15:58:09 Possible ischemia no longer present T-wave abnormality still present Electronically Signed On 09-27-2024 22:06:12 CDT by JOSEFA TALLEY [id number]
[2024-09-26 20:10] LABS: Troponin 5 6HR Delta -16.4 ng/L (0-12)
[2024-09-26 20:11] LABS: Troponin 5 6HR 231.6 ng/L (0-10)
--- NOTE | 2024-09-26 20:15 | PC.NURSE ---
Attempted to call pt report to [facility] at 2004, was told nurse will call back for report.
[2024-09-26] MEDS: nitroglycerin drip 50 MG/250 ML PREMIX IV (20:20)
[2024-09-26 20:27] LABS: INR 0.95 (0.8-1.2)
[2024-09-26 20:29] LABS: Partial Thromboplastin Time 31.9 SECONDS (23.9-36.7)
--- NOTE | 2024-09-26 22:01 | P.CONIM_ITS ---
Providers/Reason For Consult 2 Consulting Physician/Specialty*: Austin Gallegos MD/interventional cardiology Reason for Consult*: Non-ST elevation SC Chest pain Attending Physician: Anjali Mejia MD Primary Care Provider: SUZANNE Dias History of Present Illness History of Present Illness Donita Aguilar is a 39 year old female past medical history significant for multiple intervention history of in-stent restenosis persistently elevated troponin in the face of chronic kidney disease on hemodialysis last intervention was in the month of August when proximal circumflex were treated with drug- eluting stent while severe in-stent restenosis of the mid RCA was treated with balloon angioplasty using noncompliant balloon. Reportedly patient was in early hemodialysis and started having chest pain radiating to neck jaw noted to have high blood pressure therefore she was brought into the emergency room, initial troponin was about 248 delta was -1.5, twelve-lead EKG was suggestive of very subtle inferolateral ST flattening but be nonspecific however cannot rule out ACS. Patient reports mild chest pressure and pain. Currently she is hypertensive Medications/Allergies Home Medications ?Medication ?Instructions ?Recorded ?Confirmed ?Last Taken ?Type blood-glucose meter,continuous #1 ea 06/12/22 09/26/24 Unknown Rx (Dexcom G6 Sales Project Administrator) blood-glucose sensor (Dexcom G6 #3 ea 06/12/22 5 Unknown Rx Sensor device) blood-glucose transmitter (Dexcom #1 ea 06/12/2209/26 Unknown Rx G6 Transmitter device) sevelamer carbonate 800 mg tablet 800 mg PO TID #90 ta bs 09/16/23 09/26/24 09/26/24 Rx clonidine HCl 0.1 mg tablet See Rx Instructions .Route 11/27/23 09/26/24 Unknown History .COMPLEX PRN Blood Pressure gabapentin 100 mg capsule 100 mg PO TID 12/27/2309/2609/26/24 History aspirin 81 mg tablet,delayed 81 mg PO QAM 30 days #30 tabs 03/28/24 09/26/24 09/26/24 Rx release atorvastatin 40 mg tablet 40 mg PO BEDTIME 30 days #30 tabs 03/28/24 09/26/24 09/25/24 Rx insulin glargine 100 unit/mL (3 5 unit SUBCUT QPM 03/2409/26/24 09/26/24 History mL) subcutaneous pen (Lantus Solostar U-100 Insulin) insulin aspart U-100 100 unit/mL 5 unit (0.05 mL) SUBC UT TID #15 mL 04/11/24 09/26/24 09/26/24 Rx (3 mL) subcutaneous pen (Novolog FlexPen U-100 Insulin aspart) AFO brace #1 ea 04/20/24 09/26/24 Unkn own Rx diabetic shoes with 3 inserts #1 ea 04/20/24 09/26/24 Unknown Rx clopidogrel 75 mg tablet 75 mg PO DAILY 04/28/24/11/1509/26/24 History bumetanide 1 mg tablet See Rx Instructions .Route . COMPLEX 09/05/24 09/26/24 09/06/24 History carvedilol 3.125 mg tablet 3.125 mg PO BID 09/05/2409/26/24 History escitalopram oxalate 10 mg tablet 10 mg PO DAILY 09/0709/26/24 09/26/24 History lisinopril 40 mg tablet 20 mg (1/2 x 40 mg) PO QAM # 1 tab 09/11/24 09/26/24 09/26/24 Rx nifedipine 60 mg tablet,extended 60 mg PO DAILY #90 ta bs 09/11/24 09/26/24 09/26/24 Rx release 24 hr (Procardia XL) amoxicillin 875 mg tablet 875 mg PO Q12H 09/26/24 04/0 11/1509/26/24 History Allergies Allergy/AdvReac Type Severity Reaction Status Date / Time acetaminophen AdvReac Mild ADR-Gastrointestinal Verified 09/26/24 14:08 Upset Current Medications Generic Name Dose Route Start Last Admin Trade Name Freq PRN Reason Stop Dose Admin Nitroglycerin/Dextrose 50 mg in 250 mls @ 0 mls/hr 09/26/24 20:00 09/26/24 21:30 Nitroglycerin Drip IV 10 mcg/min .Q0M SHAY 3 mls/hr Titration Protocol Per Protocol Nitroglycerin 0.4 mg 09/26/24 19:16 09/26/24 19:29 Nitroglycerin 0.4 Mg Sublingual Tablet SUBLINGUAL 0.4 mg Q5M PRN Administration CHEST PAIN PFSH Acute 2 PFSH: Medical History Headache Accelerated hypertension Uncontrolled type 1 diabetes mellitus ESRD (end stage renal disease) Dialysis complication Hypoglycemia Hemodialysis catheter dysfunction Hyperkalemia Colitis End stage renal disease on dialysis COPD (chronic obstructive pulmonary disease) Diabetes mellitus Transaminitis Intractable nausea and vomiting Hyperlipidemia HTN (hypertension) CHF (congestive heart failure), NYHA class III Pulmonary hypertension CAD (coronary artery disease) Neurogenic bladder COVID-19 Tobacco dependence Drug abuse Anemia Community acquired pneumonia Esophagitis Long-term insulin use History of pancreatitis Celiac disease Recurrent UTI Non-alcoholic fatty liver disease Arnold-Chiari malformation Diabetic gastroparesis -continue Reglan Diabetic neuropathy associated with type 1 diabetes mellitus Headache, common migraine, intractable, with status migrainosus Pleural effusion 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 History of lung surgery -s/p LLL lobectomy secondary to cavitary pneumonia (2017) History of endoscopy History of cholecystectomy Family History Grandfather Diabetes Mother CAD (coronary artery disease) Diabetes Heart disease Hypertension Brother Acute lymphoblastic leukemia (ALL) in child Grandmother Thyroid disease Denies family history of Colon cancer Ovarian cancer Prostate cancer Hyperlipidemia Breast cancer Uterine cancer Stroke Social History Smoking and tobacco/nicotine status: former use of tobacco/nicotine Quit status (tobacco/nicotine): has quit using Former quit date comment: She previously smoked <1/2 PPD, quit July 2023. Second hand smoke exposure: Yes Alcohol intake: never Substance/Drug Use: current Household members: children Housing: House Marital status: Single Current occupational status: unemployed Female Reproductive History: Date of last menstrual period: 09/26/24 Vitals/I&O/Wt Last Vital Signs Temp 97.8 F 09/26/24 13:58 Pulse 76 09/26/24 21:28 Resp 18 09/26/24 20:00 BP 186/94 09/26/24 21:28 Pulse Ox 96 09/26/24 21:28 O2 Del Method Nasal Cannula 09/26/24 20:00 O2 Flow Rate 2 09/26/24 20:00 09/26/24 09/26/24 09/26/24 06:59 14:59 22:59 Intake Total 1.75 / 1.75 Balance 1.75 / 1.75 Weight last 48 hrs Weight 141 lb Physical Exam 2 Const: OTHER: GENERAL: Patient is alert, awake and oriented x3. HEART: Regular S1 and S2. No murmur, rub or gallop. LUNGS: Clear to auscultate bilaterally. CENTRAL NERVOUS SYSTEM: Grossly nonfocal. EXTREMITIES: Lower extremities with out edema bilaterally. Data 09/26/24 14:15 09/26/24 14:15 A&P Assessment and plan (1) Hypertensive urgency: (2) NSTEMI (non-ST elevated myocardial infarction): (3) Chest pain: Qualifiers: Chest pain type: precordial pain Qualified Code(s): R07.2 - Precordial pain (4) ESRD (end stage renal disease): (5) CHF (congestive heart failure), NYHA class III: Qualifiers: Congestive heart failure chronicity: acute on chronic Congestive heart failure type: systolic Qualified Code(s): I50.23 - Acute on chronic systolic (congestive) heart failure Plan At the time of my examination patient appeared to be stable denies any significant chest pain, patient has prior multiple interventions, she has chronic persistent higher troponin level, she presented with hypertensive urgency since troponin is downtrending I will control her blood pressure will resume her home meds will start her on IV nitroglycerin, she will be n.p.o. overnight we will assess her tomorrow morning for possible left heart cath versus continual medical management based upon however clinical impression regarding troponin being leak as demand ischemia or due to chronic kidney disease versus acute coronary syndrome. Patient has been discussed in detail all risk-benefit and alternative for the procedure she agrees with that. Continue aspirin statin beta-marii nitroglycerin and anticoagulation PDMP PDMP Reviewed: Not Reviewed Consult Attestations 2 Medical Necessity Statement: Patient require continuation hospitalization for above defined care. Coding Level of Care Code Acute Code for [facility] Diagnoses Hypertensive urgency I16.0 NSTEMI (non-ST elevated myocardial infarction) I21.4 Precordial pain R07.2 Chest pain type: precordial pain ESRD (end stage renal disease) N18.6 Acute on chronic systolic congestive heart failure, NYHA class 3 I50.23 Congestive heart failure chronicity: acute on chronic Congestive heart failure type: systolic
[2024-09-26] MEDS: sevelamer 800 mg Tablet PO (22:02)
[2024-09-26] MEDS: escitalopram 10 mg Tablet 20 MG PO (22:03)
[2024-09-26] MEDS: atorvastatin 40 mg Tablet PO (22:42)
[2024-09-26] MEDS: carvedilol 3.125 mg Tablet PO (22:42)
[2024-09-26] MEDS: heparin drip 25,000 UNIT/500 ML PREMIX 22.77 UNIT IV (22:43)
[2024-09-26] MEDS: heparin 5,000 unit/mL INJ 1 mL IVP (22:43)
[2024-09-27] VITALS (70 sets, daily range): BP systolic 107–208; BP diastolic 54–124; PULSE 60–82; RESP 0–19; TEMP 36.7–37.2; O2SAT 81–100; BMI 27.0
--- NOTE | 2024-09-27 01:39 | ECG_ITS ---
[facility] Test Date: 2024-09-27 Pat Name: Donita Aguilar Department: Room: 101 Gender: Female Associate Director Finance: : 1985 Requested By: Anjali Mejia Order Number: [id number] Reading MD: JOSEFA TALLEY Measurements Intervals [place] Rate: 69 P: 58 IA: 188 QRS: -6 QRSD: 109 T: 35 QT: 448 QTc: 481 Interpretive Statements SINUS RHYTHM POSSIBLE LEFT ATRIAL ENLARGEMENT [-0.1mV P-WAVE IN V1/V2] NONSPECIFIC ST & T-WAVE ABNORMALITY Compared to ECG 09/26/2024 19:54:51 Intraventricular conduction delay no longer present T-wave abnormality still present Electronically Signed On 09-27-2024 21:40:49 CDT by JOSEFA TALLEY [email or web address] [email or web address]
[2024-09-27] MEDS: HYDROmorphone 0.5 MG/0.5 ML INJ IVP ×3 (04:26→13:43)
[2024-09-27 05:02] LABS: Basophils # 0.1 10^3/uL (0.0-0.1); Basophils % 0.8 %; Eosinophils # 0.4 10^3/uL (0.0-0.8); Eosinophils % 6.6 %; Hematocrit 29.3 % (36-47); Lymphocytes # 1.6 10^3/uL (0.8-4.8); Lymphocytes % 26.2 %; Mean Corpuscular HGB Conc 31.4 g/dL (30-55); Mean Corpuscular Hemoglobin 30.1 pg (27-33); Mean Corpuscular Volume 95.8 fl (85-98); Mean Platelet Volume 10.7 fL (7.4-10.4); Monocytes # 0.5 10^3/uL (0.2-0.9); Neutrophils % 58.1 %; Nucleated Red Blood Cells % 0 %; Platelet Count 129 10^3/cmm (157-399); Red Blood Count 3.06 10^6/uL (3.85-5.65); Red Cell Distribution Width 15.1 % (12.1-15.1); White Blood Count 6.03 10^3/uL (3.29-11.43)
[2024-09-27 05:12] LABS: Estmated Average Glucose 111; Hemoglobin A1C 5.5 % (4.0-6.0)
[2024-09-27 05:15] LABS: Partial Thromboplastin Time 61.8 SECONDS (23.9-36.7)
[2024-09-27 05:17] LABS: Chol HDL Ratio 1.98 mg/dL (0.0-4.40); Cholesterol 79 mg/dL (0-200); HDL Cholesterol 40 mg/dL (60-100); LDL Cholesterol Calculated 12 mg/dL (50-129); Triglycerides 135 mg/dL (0-150)
[2024-09-27 05:23] LABS: Alanine Aminotransferase 18 U/L (0-33); Albumin Level 3.4 g/dL (3.5-5.2); Alkaline Phosphatase 133 U/L (35-105); Anion Gap 12.7 (5-19); Aspartate Amino Transferase 19 U/L (0-32); Blood Urea Nitrogen 17 mg/dL (6-20); Calcium 8.3 mg/dL (8.5-10.5); Carbon Dioxide 31 mmol/L (22-29); Chloride 97 mmol/L (98-107); Creatinine Clr Calc Pharmacy 17.5939; Globulin 3.2 g/dL (1.3-4.6); Glomerular Filtration Rate 14.2 mL/min (90-130); Glucose 245 mg/dL (65-115); Osmolality Calculated 294 mOsm/kg (285-295); Phosphorus 3.6 mg/dL (2.5-4.5); Potassium 3.7 mmol/L (3.5-5.1); Sodium 137 mmol/L (136-145); Total Bilirubin 0.3 mg/dL (0.15-1.2); Total Protein 6.6 g/dL (6.6-8.7)
--- NOTE | 2024-09-27 06:25 | PC.NURSE ---
Corrected to 18ml/hr as per protocol. Initially documented in wrong place on AUG. Verified with ROLA Frazier
[2024-09-27 06:33] LABS: Glucose Point of Care 191 mg/dL (70-110)
[2024-09-27] MEDS: ondansetron 2 mg/ML SDV 2 mL 4 MG IVP ×2 (08:12→13:43)
[2024-09-27] MEDS: carvedilol 3.125 mg Tablet PO (08:17)
[2024-09-27] MEDS: clopidogrel 75 mg Tablet PO (08:17)
[2024-09-27] MEDS: sevelamer 800 mg Tablet PO ×3 (08:17→21:01)
[2024-09-27] MEDS: insulin lispro 100 unit/1 mL SUBCUT (08:21)
--- NOTE | 2024-09-27 09:14 | PC.NURSE ---
She is still having severe nausea with vomiting. Patient unable to keep PO meds down at this time. Informed Dr Guevara and received order for Reglan 5mg IVP every 4hours as needed for nausea. RBVO
[2024-09-27] MEDS: metoclopramide 5 mg/mL SDV 2 mL IVP (09:23)
[2024-09-27 11:00] LABS: Partial Thromboplastin Time 43.5 SECONDS (23.9-36.7)
[2024-09-27 11:49] LABS: Lipase 14 U/L (13-60)
[2024-09-27 12:09] LABS: Glucose Point of Care 124 mg/dL (70-110)
--- NOTE | 2024-09-27 12:16 | PC.NURSE ---
Patient was to go to labour market economist today for LHC. Due to persistent nausea/vomiting will hold off until Saturday09/29/24
[2024-09-27] MEDS: scopolamine 1 mg PATCH 1 PATCH TRANSDERMA (13:37)
[2024-09-27] MEDS: promethazine 25 mg Tablet PO (13:37)
--- NOTE | 2024-09-27 14:26 | P.PN_ITS ---
Subjective 2 Subjective: Overnight labs and H&P reviewed. Patient continues to have significant amount of vomiting. Which is not controlled with Zofran. Medications: Reviewed: Yes Vitals/I&O/Wt Last Vital Signs Temp 99.0 F 09/27/24 12:00 Pulse 82 09/27/24 14:00 Resp 12 09/27/24 12:00 BP 173/124 09/27/24 13:45 Pulse Ox 97 09/27/24 13:45 O2 Del Method Nasal Cannula 09/27/24 12:00 O2 Flow Rate 2 09/27/24 12:00 09/26/24 09/27/24 09/27/24 22:59 06:59 14:59 Intake Total 246.20 / 246.20 225.725 / 471.925 160.60 / 160.60 Output Total 200 / 200 Balance 246.20 / 246.20 225.725 / 471.925 -39.40 / -39.40 Weight last 48 hrs Weight 62.766 kg Weight 62.766 kg Weight 63.248 kg Weight 63.957 kg Physical Exam 2 Narrative: General: No acute distress, AO x3 HEENT: PERRLA, pupils bilaterally equal and reactive, pallors not present Chest: Normal vesicular breath sounds, no added sounds, equal good air entry bilaterally CVS: S1-S2 regular, no murmurs, no tachycardia, no gallops, no rubs Abdomen: Soft, nontender, no organomegaly, bowel sounds present Neuro: No focal deficits, no facial deformity, AO x3, power 5/5 in all limbs Data 09/27/24 04:20 09/27/24 04:20 A&P Assessment and plan (1) Hypertensive emergency: (2) End stage renal disease on dialysis: (3) Chest pain: Qualifiers: Chest pain type: precordial pain Qualified Code(s): R07.2 - Precordial pain Plan Donita Aguilar is a 39 year old female w/ oliguric ESRD on TTS HD via a R. IJ permcath and LUE AVG, CAD s/p 8 stents, including one OLENA to the LCx on 09/09/2024 for an NSTEMI, chronic HFpEF, IDDM2, chronic diarrhea, & Anxiety d/o, who was brought to the ED on 09/26/2024 w/ complaints of chest pain. #Chest pain: Although atypical, she does have risk factors. #CAD: Continue Aspirin, Plavix, Carvedilol continue NTG drip, Start heparin drip. F/u A1c, lipid panel, UA/UDS, ECHO. Her TSH on 09/09/2024 was 4.98. #Hypertensive Emergency: Continue NTG drip. #IDDM2: Held her insulin glargine. Ordered low dose SSI for meals and bedtime. #Neuropathy: Continue Gabapentin. #oliguric ESRD on TTS HD via a R. IJ permcath and LUE AVG - She started using her LUE AVG today. - Defer Nephrology consult to the hospitalist. #Chronic Anemia: Will monitor #Anxiety d/o: After discussion w/ the patient, increased her Escitalopram to 20mg. #chronic diarrhea: not an issue during this admission DVT ppx: Heparin drip. September 27, 2024 Patient having intense amount of vomiting this morning. Not controlled with as needed Zofran. Added as needed Reglan, scopolamine patch and as needed promethazine. He is currently on a nitroglycerin infusion however blood pressure is 200/100. Add as needed hydralazine and as needed labetalol. Adding IV medications for now as patient is on likely to be able to tolerate oral medications. Once able to tolerate p.o. intake will resume her nifedipine and lisinopril at home dosing. Check lipase to assess for potential pancreatitis as being the cause of persisting nausea. Patient is status postcholecystectomy. No diarrhea or abdominal pain at this time. Patient does complain of ongoing chest pain. She was evaluated by cardiology and plan for likely cath today, however with her intense vomiting she is unable to lay flat to be able to tolerate the procedure therefore this will be attempted tomorrow. In the interim continue heparin drip. Continue aspirin and Plavix and atorvastatin. Awaiting echocardiogram. Consult nephrology to maintain hemodialysis schedule in hospital PDMP PDMP Reviewed: Not Reviewed Attestations 2 Medical Necessity Statement*: Continued need for heparin GTT, nitroglycerin infusion, planned angiogram once vomiting resolves Coding Level of Care Code Acute Code for Chg Fwd High MDM includes number and complexity of problems actively addressed during encounter, amount and/or complexity of data reviewed/ordered and described risk of complication, morbidity or mortality of management as documented Diagnoses Hypertensive emergency I16.1 End stage renal disease on dialysis N18.6; Z99.2 Precordial pain R07.2 Chest pain type: precordial pain
[2024-09-27] MEDS: NIFEdipine ER (24 hr) 30 mg Tablet 60 MG PO (14:48)
[2024-09-27] MEDS: lisinopril 20 mg Tablet PO (14:48)
--- NOTE | 2024-09-27 14:51 | P.PN_ITS ---
Subjective 2 Subjective: Patient is nauseated and throwing up this morning not able to lay still, she denies any significant chest pain, blood pressure is continues to be elevated Medications: Reviewed: Yes Vitals/I&O/Wt Last Vital Signs Temp 99.0 F 09/27/24 12:00 Pulse 82 09/27/24 14:00 Resp 12 09/27/24 12:00 BP 173/124 09/27/24 13:45 Pulse Ox 97 09/27/24 13:45 O2 Del Method Nasal Cannula 09/27/24 12:00 O2 Flow Rate 2 09/27/24 12:00 09/26/24 09/27/24 09/27/24 22:59 06:59 14:59 Intake Total 246.20 / 246.20 225.725 / 471.925 160.60 / 160.60 Output Total 200 / 200 Balance 246.20 / 246.20 225.725 / 471.925 -39.40 / -39.40 Weight last 48 hrs Weight 138 lb 6 oz Weight 138 lb 6 oz Weight 139 lb 7 oz Weight 141 lb Physical Exam 2 Const: OTHER: GENERAL: Patient is alert, awake and oriented x3. HEART: Regular S1 and S2. No murmur, rub or gallop. LUNGS: Clear to auscultate bilaterally. CENTRAL NERVOUS SYSTEM: Grossly nonfocal. EXTREMITIES: Lower extremities with out edema bilaterally. Data 09/27/24 04:20 09/27/24 04:20 A&P Assessment and plan (1) Hypertensive urgency: (2) NSTEMI (non-ST elevated myocardial infarction): (3) Chest pain: Qualifiers: Chest pain type: precordial pain Qualified Code(s): R07.2 - Precordial pain (4) ESRD (end stage renal disease): (5) CHF (congestive heart failure), NYHA class III: Qualifiers: Congestive heart failure type: systolic Congestive heart failure chronicity: acute on chronic Qualified Code(s): I50.23 - Acute on chronic systolic (congestive) heart failure Plan Since patient remained stable vital trujillo, there is no significant EKG changes or arrhythmia patient has chronic persistent elevated troponins, she recently 1 month ago had angiogram and PCI performed, she has more nausea and vomiting at this point we will await left heart cath and try to treat her medically once better GI symptom trujillo we will further advise Will try to control her blood pressure better Patient is already on nitroglycerin IV will uptitrate May will consider IV hydralazine to control the blood pressure PDMP PDMP Reviewed: Not Reviewed Attestations 2 Medical Necessity Statement*: Patient require continuation hospitalization for above defined care Coding Level of Care Code Acute Code for Chg Fwd Diagnoses Hypertensive urgency I16.0 NSTEMI (non-ST elevated myocardial infarction) I21.4 Precordial pain R07.2 Chest pain type: precordial pain ESRD (end stage renal disease) N18.6 Acute on chronic systolic congestive heart failure, NYHA class 3 I50.23 Congestive heart failure type: systolic Congestive heart failure chronicity: acute on chronic
--- NOTE | 2024-09-27 14:54 | P.CONIM_ITS ---
Providers/Reason For Consult 2 Consulting Physician/Specialty*: Derrick Vail md / telenephrology Reason for Consult*: ESRD care Requesting Physician: Dr Yovany Guevara Attending Physician: Barbara Guevara MD Primary Care Provider: USZANNE Dias History of Present Illness History of Present Illness Donita Aguilar is a 39 year old female w/c ESRD on TTS HD via a R. IJ permcath and LUE AVG, CAD s/p 8 stents, including one OLENA to the LCx on 09/09/2024 for an NSTEMI, chronic HFpEF, IDDM2, chronic diarrhea, & Anxiety d/o. She was admitted yesterday w/ chest pain. In the ED her vital signs were significant for elevated BP as high as 197/103 mmHg- she is on a nitro drip. Her CXR showed L. Basilar atelectasis with a mild L. Pleural effusion. Her initial EKG showed NSR with no ST changes, but her subsequent to EKG showed TWI in V5 and V6 with questionable ST depressions, and an ~1mm ST depression in lead I, and QTc of 470. renal is called for ESRD care and HTN Review of Systems 2 Narrative: Weak nausea headache shortness of breath chest pain, lethargy minimal urine output. No diarrhea. Poor vision. Denies fevers. Medications/Allergies Home Medications ?Medication ?Instructions ?Recorded ?Confirmed ?Last Taken ?Type blood-glucose meter,continuous #1 ea 06/12/22 09/26/24 Unknown Rx (Dexcom G6 Director Home) blood-glucose sensor (Dexcom G6 #3 ea 06/12/22 5 Unknown Rx Sensor device) blood-glucose transmitter (Dexcom #1 ea 06/12/2209/26 Unknown Rx G6 Transmitter device) sevelamer carbonate 800 mg tablet 800 mg PO TID #90 ta bs 09/16/23 09/26/24 09/26/24 Rx clonidine HCl 0.1 mg tablet See Rx Instructions .Route 11/27/23 09/26/24 Unknown History .COMPLEX PRN Blood Pressure gabapentin 100 mg capsule 100 mg PO TID 12/27/2309/2609/26/24 History aspirin 81 mg tablet,delayed 81 mg PO QAM 30 days #30 tabs 03/28/24 09/26/24 09/26/24 Rx release atorvastatin 40 mg tablet 40 mg PO BEDTIME 30 days #30 tabs 03/28/24 09/26/24 09/25/24 Rx insulin glargine 100 unit/mL (3 5 unit SUBCUT QPM 03/2409/26/24 09/26/24 History mL) subcutaneous pen (Lantus Solostar U-100 Insulin) insulin aspart U-100 100 unit/mL 5 unit (0.05 mL) SUBC UT TID #15 mL 04/11/24 09/26/24 09/26/24 Rx (3 mL) subcutaneous pen (Novolog FlexPen U-100 Insulin aspart) AFO brace #1 ea 04/20/24 09/26/24 Unkn own Rx diabetic shoes with 3 inserts #1 ea 04/20/24 09/26/24 Unknown Rx clopidogrel 75 mg tablet 75 mg PO DAILY 04/28/2411/1509/26/24 History bumetanide 1 mg tablet See Rx Instructions .Route . COMPLEX 09/05/24 09/26/24 09/06/24 History carvedilol 3.125 mg tablet 3.125 mg PO BID 09/05/2409/26/24 History escitalopram oxalate 10 mg tablet 10 mg PO DAILY 09/0709/26/24 09/26/24 History lisinopril 40 mg tablet 20 mg (1/2 x 40 mg) PO QAM # 1 tab 09/11/24 09/26/24 09/26/24 Rx nifedipine 60 mg tablet,extended 60 mg PO DAILY #90 ta bs 09/11/24 09/26/24 09/26/24 Rx release 24 hr (Procardia XL) amoxicillin 875 mg tablet 875 mg PO Q12H 09/26/2411/1509/26/24 History Allergies Allergy/AdvReac Type Severity Reaction Status Date / Time acetaminophen AdvReac Mild ADR-Gastrointestinal Verified 09/26/24 14:08 Upset Current Medications Generic Name Dose Route Start Last Admin Trade Name Freq PRN Reason Stop Dose Admin Atorvastatin Calcium 40 mg 09/26/24 21:55 09/26/24 22:42 Atorvastatin 40 Mg Tablet PO 40 mg BEDTIME SHAY Administration Carvedilol 3.125 mg 09/26/24 21:55 09/27/24 08:17 Carvedilol 3.125 Mg Tablet PO 3.125 mg BID [facility] Administration Clopidogrel Bisulfate 75 mg 09/27/24 09:00 09/27/24 08:17 Clopidogrel 75 Mg Tablet PO 75 mg DAILY [facility] Administration Docusate Sodium 200 mg 09/27/24 09:00 09/27/24 08:57 Docusate Sodium 100 Mg Capsule PO Not Given DAILY [facility] Escitalopram Oxalate 20 mg 09/26/24 21:30 09/26/24 22:03 Escitalopram 10 Mg Tablet PO 20 mg BEDTIME [facility] Administration Hydromorphone HCl 0.5 mg 09/27/24 03:17 09/27/24 13:43 Hydromorphone 0.5 Mg/0.5 Ml Inj IVP 0.5 mg Q4H PRN Administration SEVERE PAIN Nitroglycerin/Dextrose 50 mg in 250 mls @ 0 mls/hr 09/26/24 20:00 09/27/24 13:48 Nitroglycerin Drip IV 50 mcg/min .Q0M [facility] 15 mls/hr Titration Protocol Per Protocol Heparin Sodium/Sodium Chloride 25,000 unit in 500 mls @ 0 mls/hr 09/26/24 22:00 09/27/24 11:06 Heparin Drip IV 16.6 unit/kg/hr CONT [facility] 21 mls/hr Titration Protocol Per Protocol Insulin Human Lispro 0 unit 09/27/24 08:00 09/27/24 12:04 Insulin Lispro 100 Unit/1 Ml SUBCUT Not Given TIDWM [facility] Protocol Lisinopril 20 mg 09/27/24 14:30 09/27/24 14:48 Lisinopril 20 Mg Tablet PO 20 mg QAM [facility] Administration Metoclopramide HCl 5 mg 09/27/24 09:15 09/27/24 09:23 Metoclopramide 5 Mg/Ml Sdv 2 Ml IVP 5 mg Q6H PRN Administration NAUSEA AND VOMITING Nifedipine 60 mg 09/27/24 14:30 09/27/24 14:48 Nifedipine Er (24 Hr) 30 Mg Tablet PO 60 mg DAILY [facility] Administration Nitroglycerin 0.4 mg 09/26/24 19:16 09/26/24 19:29 Nitroglycerin 0.4 Mg Sublingual Tablet SUBLINGUAL 0.4 mg Q5M PRN Administration CHEST PAIN Ondansetron HCl 4 mg 09/26/24 19:58 09/27/24 13:43 Ondansetron 2 Mg/Ml Sdv 2 Ml IVP 4 mg Q6H PRN Administration vomiting, or N/V if npo Promethazine HCl 25 mg 09/27/24 11:26 09/27/24 13:37 Promethazine 25 Mg Tablet PO 25 mg Q6H PRN Administration NAUSEA Scopolamine 1 patch 09/27/24 11:30 09/27/24 13:37 Scopolamine 1 Mg Patch TRANSDERMA 1 patch Q3D [facility] Administration Senna 17.2 mg 09/27/24 09:00 09/27/24 08:57 Sennosides 8.6 Mg Tablet PO Not Given DAILY [facility] Sevelamer Carbonate 800 mg 09/26/24 21:26 09/27/24 14:48 Sevelamer 800 Mg Tablet PO 800 mg TID [facility] Administration PFSH Acute 2 PFSH: Medical History Headache Accelerated hypertension Uncontrolled type 1 diabetes mellitus ESRD (end stage renal disease) Dialysis complication Hypoglycemia Hemodialysis catheter dysfunction Hyperkalemia Colitis End stage renal disease on dialysis COPD (chronic obstructive pulmonary disease) Diabetes mellitus Transaminitis Intractable nausea and vomiting Hyperlipidemia HTN (hypertension) CHF (congestive heart failure), NYHA class III Pulmonary hypertension CAD (coronary artery disease) Neurogenic bladder COVID-19 Tobacco dependence Drug abuse Anemia Community acquired pneumonia Esophagitis Long-term insulin use History of pancreatitis Celiac disease Recurrent UTI Non-alcoholic fatty liver disease Arnold-Chiari malformation Diabetic gastroparesis -continue Reglan Diabetic neuropathy associated with type 1 diabetes mellitus Headache, common migraine, intractable, with status migrainosus Pleural effusion 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 History of lung surgery -s/p LLL lobectomy secondary to cavitary pneumonia (2017) History of endoscopy History of cholecystectomy Family History Grandfather Diabetes Mother CAD (coronary artery disease) Diabetes Heart disease Hypertension Brother Acute lymphoblastic leukemia (ALL) in child Grandmother Thyroid disease Denies family history of Colon cancer Ovarian cancer Prostate cancer Hyperlipidemia Breast cancer Uterine cancer Stroke Social History Smoking and tobacco/nicotine status: former use of tobacco/nicotine Quit status (tobacco/nicotine): has quit using Former quit date comment: She previously smoked <1/2 PPD, quit July 2023. Second hand smoke exposure: Yes Alcohol intake: never Substance/Drug Use: current Household members: children Housing: House Marital status: Single Current occupational status: unemployed Female Reproductive History: Date of last menstrual period: 09/26/24 Vitals/I&O/Wt Last Vital Signs Temp 99.0 F 09/27/24 12:00 Pulse 82 09/27/24 14:00 Resp 12 09/27/24 12:00 BP 173/124 09/27/24 13:45 Pulse Ox 97 09/27/24 13:45 O2 Del Method Nasal Cannula 09/27/24 12:00 O2 Flow Rate 2 09/27/24 12:00 09/26/24 09/27/24 09/27/24 22:59 06:59 14:59 Intake Total 246.20 / 246.20 225.725 / 471.925 160.60 / 160.60 Output Total 200 / 200 Balance 246.20 / 246.20 225.725 / 471.925 -39.40 / -39.40 Weight last 48 hrs Weight 62.766 kg Weight 62.766 kg Weight 63.248 kg Weight 63.957 kg Physical Exam 2 Narrative: Obese lady on nitroglycerin drip. Vital signs noted. Using nasal cannula oxygen. HEENT normocephalic atraumatic. Neck is supple no JVP. Lungs left-sided basilar crackles. Heart regular positive S1-S2 Abdomen is soft positive bowel sounds. Extremities left upper extremity AV graft with good thrill and bruit. She has a right IJ permacath. She has a toe amputation. Minimal edema. Neuro awake alert and oriented x 3. Data 09/27/24 04:20 09/27/24 04:20 A&P Assessment and plan (1) End stage renal disease on dialysis: Plan 39-year-old lady CAD hypertension IDDM, anemia. Patient presents with nausea vomiting chest pain headaches significant hypertension. 1. Patient is significantly above her dry weight we will try to do extra dialysis for fluid removal today to see if that helps. Nausea and vomiting can be atypical chest pain or possibly GERD. As per PMD. 2. Appreciate cardiology as EKG changes and known coronary artery disease with recent intervention with proximal circumflex having drug-eluting stent and severe in-stent restenosis at mid RCA was treated with balloon angioplasty in August 2024 as per cardiology. 3. Anemia monitor hemoglobin: Recent ferritin of 1525 on September 08, 2024 no need for IV iron. Once blood pressure improves we can consider giving Epogen. 4. Hypertension we will do extra fluid removal today to see if this helps. Patient was seen and examined using audiovisual equipment with the aid of a nurse. This was a telehealth visit. The patient consented to telehealth and to hemodialysis. PDMP PDMP Reviewed: Not Reviewed Consult Attestations 2 Medical Necessity Statement: Chest pain hypertensive urgency ESRD volume overload, nausea and vomiting Time Spent in Patient Care: Greater than 35 minutes (>than 50% of time spent in counselling and/or direct pt care on unit) . Coding Level of Care Code Acute Code for Chg Fwd Diagnoses End stage renal disease on dialysis N18.6; Z99.2
[2024-09-27 16:34] LABS: Glucose Point of Care 141 mg/dL (70-110)
[2024-09-27] MEDS: heparin, porcine 1,000 unit/mL INJ 10 mL 1000 UNIT IV (16:49)
--- NOTE | 2024-09-27 16:51 | PC.NURSE ---
Heparin for dialysis given to ROLA Tran.
[2024-09-27 18:10] LABS: Partial Thromboplastin Time > 250.0 SECONDS (23.9-36.7)
[2024-09-27 18:30] LABS: Hepatitis C Virus Antibody Non-Reactive (Nonreactive)
[2024-09-27 18:31] LABS: Hepatitis B Surface AB 24.6 (11.5-1000)
[2024-09-27 20:44] LABS: Glucose Point of Care 115 mg/dL (70-110)
[2024-09-27] MEDS: escitalopram 10 mg Tablet 20 MG PO (21:01)
[2024-09-27] MEDS: atorvastatin 40 mg Tablet PO (21:01)
--- NOTE | 2024-09-27 21:58 | USCV_ITS ---
Donita Aguilar Age: 39 Gender: F : 1985 Exam Date: 09/27/2024 07:51 Ordering Phys: Anjali Mejia MD Technologist: Elian Boyer [place] [facility] [place]: chest pain BP: 159 / 83 HR: 68 Rhythm: Sinus Technical Quality: Adequate MEASUREMENTS (Male / Female) Normal Values 2D ECHO LV Diastolic Diameter PLAX 4.5 cm 4.2 - 5.9 / 3.9 - 5.3 cm IVS Diastolic Thickness 1.5 cm 0.6 - 1.0 / 0.6 - 0.9 cm IVS Systolic Thickness 1.5 cm LVPW Diastolic Thickness 1.8 cm 0.6 - 1.0 / 0.6 - 0.9 cm LVPW Systolic Thickness 1.9 cm LVOT Diameter 2.0 cm LV Ejection Fraction 2D Teich 57.7 % LV Ejection Fraction MOD 4C 52.8 % LV Ejection Fraction MOD 2C 54.3 % LV Ejection Fraction 2C AL 54.8 % LA Diameter 3.5 cm RA Systolic Volume 4C AL 45.2 ml RA Systolic Volume 4C MOD 45.1 ml LA Sys Volume AL 45.9 cm cubed LA Sys Volume Index AL 27.9 cm cubed/m squared Aorta at Sinotubular Diameter 1.9 cm IVC Diameter 1.6 cm M-MODE LA Ao Ratio MM 1.8 AV Cusp Separation MM 1.5 cm DOPPLER AV Peak Velocity 136.0 cm/s LVOT Peak Velocity 88.0 cm/s AV Area Cont Eq vti 1.9 cm squared AV Area Cont Eq pk 2.1 cm squared MV Peak Velocity 152.0 cm/s MV Area PHT 4.6 cm squared Mitral E to A Ratio 1.5 TR Peak Velocity 498.0 cm/s TR Peak Gradient 99.2 mmHg TR Mean Velocity 333.0 cm/s TR Mean Gradient 54.3 mmHg TR Velocity Time Integral 160.0 cm PV Peak Velocity 97.0 cm/s RV Ejection Time 0.3 s FINDINGS Left Ventricle Mildly increased left ventricular cavity size. low normal left ventricular systolic function. Left ventricular ejection fraction is estimated at 50 %. Normal diastolic function. Right Ventricle The right ventricle is normal in size and function. Right Atrium The right atrium is normal in size. Left Atrium The left atrium is normal in size. Mitral Valve Mildly thickened mitral valve. No mitral valve stenosis. Trace mitral valve regurgitation. Aortic Valve Mild aortic valve calcification. No aortic valve stenosis. Trace aortic valve regurgitation. Tricuspid Valve Structurally normal tricuspid valve without significant stenosis or regurgitation. Pulmonary artery systolic pressure is normal. Pulmonic Valve Structurally normal pulmonic valve without significant stenosis. There is no pulmonic regurgitation. Pericardium Normal pericardium without effusion. Aorta Normal ascending aorta dimension. IVC Moderately dilated IVC. CONCLUSIONS Mildly increased left ventricular cavity size. low normal left ventricular systolic function. Left ventricular ejection fraction is estimated at 50 %. Normal diastolic function. No significant valve abnormalities. There is no pericardial effusion. Right atrial pressure is around 15 mm of mercury. Austin Gallegos MD (Electronically Signed) Final Date: 27 September 2024 15:59 S
[2024-09-28] VITALS (8 sets, daily range): BP systolic 119–149; BP diastolic 56–97; PULSE 59–71; RESP 4–22; TEMP 36.4–36.7; O2SAT 95–100
[2024-09-28] MEDS: HYDROmorphone 0.5 MG/0.5 ML INJ IVP ×5 (02:59→22:48)
--- NOTE | 2024-09-28 03:52 | PC.NURSE ---
Patient PTT came back greater than 250. Haparin GTT turned off upon returning from dialysis. New PTT put in for 1999. Lab unable to get blood for sample after attempting x4 and notified nurse. New order for PTT put in for 399.
[2024-09-28 04:24] LABS: Basophils # 0.1 10^3/uL (0.0-0.1); Eosinophils # 0.2 10^3/uL (0.0-0.8); Eosinophils % 3.4 %; Hematocrit 31.8 % (36-47); Lymphocytes # 1.7 10^3/uL (0.8-4.8); Lymphocytes % 24.3 %; Mean Corpuscular HGB Conc 30.8 g/dL (30-55); Mean Corpuscular Hemoglobin 29.6 pg (27-33); Mean Corpuscular Volume 96.1 fl (85-98); Mean Platelet Volume 10.6 fL (7.4-10.4); Monocytes # 0.9 10^3/uL (0.2-0.9); Nucleated Red Blood Cells % 0 %; Platelet Count 135 10^3/cmm (157-399); Red Blood Count 3.31 10^6/uL (3.85-5.65); Red Cell Distribution Width 15.1 % (12.1-15.1); White Blood Count 7.11 10^3/uL (3.29-11.43)
[2024-09-28 04:33] LABS: Partial Thromboplastin Time 29.2 SECONDS (23.9-36.7)
[2024-09-28 04:40] LABS: Alanine Aminotransferase 14 U/L (0-33); Albumin Level 3.6 g/dL (3.5-5.2); Alkaline Phosphatase 140 U/L (35-105); Anion Gap 16.8 (5-19); Aspartate Amino Transferase 13 U/L (0-32); Blood Urea Nitrogen 24 mg/dL (6-20); Calcium 8.9 mg/dL (8.5-10.5); Carbon Dioxide 29 mmol/L (22-29); Chloride 96 mmol/L (98-107); Creatinine Clr Calc Pharmacy 12.8788; Globulin 3.9 g/dL (1.3-4.6); Glomerular Filtration Rate 9.9 mL/min (90-130); Glucose 96 mg/dL (65-115); Magnesium 2.1 mg/dL (1.7-2.3); Osmolality Calculated 290 mOsm/kg (285-295); Phosphorus 4.2 mg/dL (2.5-4.5); Potassium 3.8 mmol/L (3.5-5.1); Sodium 138 mmol/L (136-145); Total Bilirubin 0.3 mg/dL (0.15-1.2); Total Protein 7.5 g/dL (6.6-8.7)
[2024-09-28] MEDS: aspirin 81 mg EC Tablet PO (05:11)
[2024-09-28] MEDS: lisinopril 20 mg Tablet PO (05:11)
[2024-09-28 06:23] LABS: Glucose Point of Care 106 mg/dL (70-110)
--- NOTE | 2024-09-28 07:26 | PM.PN ---
Subjective Subjective: feels better. still with nausea and chest pain. for cardiac cath today. less sob. Medications: Reviewed: Yes Medication Review Details: Current Medications Acetaminophen (Acetaminophen 325 Mg Tablet) 650 mg PO Q6H PRN PRN Reason: Mild/Mod Pain Or Temp >/= 101 Aspirin (Aspirin 81 Mg Ec Tablet) 81 mg PO QAM [facility] Last Admin: 09/28/24 05:11 Dose: 81 mg Atorvastatin Calcium (Atorvastatin 40 Mg Tablet) 40 mg PO BEDTIME [facility] Last Admin: 09/27/24 21:01 Dose: 40 mg Carvedilol (Carvedilol 3.125 Mg Tablet) 3.125 mg PO BID [facility] Last Admin: 09/27/24 17:36 Dose: Not Given Clopidogrel Bisulfate (Clopidogrel 75 Mg Tablet) 75 mg PO DAILY [facility] Last Admin: 09/27/24 08:17 Dose: 75 mg Docusate Sodium (Docusate Sodium 100 Mg Capsule) 200 mg PO DAILY [facility] Last Admin: 09/27/24 08:57 Dose: Not Given Escitalopram Oxalate (Escitalopram 10 Mg Tablet) 20 mg PO BEDTIME [facility] Last Admin: 09/27/24 21:01 Dose: 20 mg Glucagon (Glucagon 1 Mg/Ml Kit 1 Ml) 1 mg IM ONCE PRN; Protocol PRN Reason: Adult Acute Hypoglycemia Nursing Prot. Heparin Sodium (Porcine) (Heparin 5,000 Unit/Ml Inj 1 Ml) 0 unit IVP PRN PRN; Protocol PRN Reason: Heparin Weight Based Protocol -Subsequent Bolus Hydralazine HCl (Hydralazine 20 Mg/Ml Inj 1 Ml) 10 mg IVP Q4H PRN PRN Reason: SBP> 160 Hydralazine HCl (Hydralazine 20 Mg/Ml Inj 1 Ml) 10 mg IVP Q4H PRN PRN Reason: HYPERTENSION Hydromorphone HCl (Hydromorphone 0.5 Mg/0.5 Ml Inj) 0.5 mg IVP Q4H PRN PRN Reason: SEVERE PAIN Last Admin: 09/28/24 02:59 Dose: 0.5 mg Nitroglycerin/Dextrose (Nitroglycerin Drip) 50 mg in 250 mls @ 0 mls/hr IV .Q0M [facility]; Protocol Last Titration: 09/27/24 18:49 Dose: 0 mcg/min, 0 mls/hr Dextrose (D5w) 500 mls @ 0 mls/hr IV ONCE PRN; Protocol PRN Reason: Adult Acute Hypoglycemia Prot Dextrose (D10w) 125 mls @ 750 mls/hr IV PRN PRN; Protocol PRN Reason: Adult Acute Hypoglycemia Nursing Protocol Dextrose (D10w) 250 mls @ 1,000 mls/hr IV PRN PRN; Protocol PRN Reason: Adult Acute Hypoglycemia Nursing Protocol Heparin Sodium/Sodium Chloride (Heparin Drip) 25,000 unit in 500 mls @ 0 mls/hr IV CONT [facility]; Protocol Last Titration: 09/28/24 05:15 Dose: Infused Sodium Chloride (Sodium Chloride 0.9%) 1,000 mls @ 50 mls/hr IV .Q20H ONE Stop: 09/28/24 07:50 Insulin Human Lispro (Insulin Lispro 100 Unit/1 Ml) 0 unit SUBCUT TIDWM [facility]; Protocol Last Admin: 09/27/24 17:35 Dose: Not Given Insulin Human Lispro (Insulin Lispro 100 Unit/1 Ml) 0 unit SUBCUT BEDTIME [facility]; Protocol Last Admin: 09/27/24 20:42 Dose: Not Given Labetalol HCl (Labetalol 5 Mg/Ml Sdv 20ml) 10 mg IVP Q4H PRN PRN Reason: SBP > 160 Lisinopril (Lisinopril 20 Mg Tablet) 20 mg PO QAM [facility] Last Admin: 09/28/24 05:11 Dose: 20 mg Metoclopramide HCl (Metoclopramide 5 Mg/Ml Sdv 2 Ml) 5 mg IVP Q6H PRN PRN Reason: NAUSEA AND VOMITING Last Admin: 09/27/24 09:23 Dose: 5 mg Naloxone HCl (Naloxone 0.4 Mg/Ml Sdv) 0.1 mg IVP Q2M PRN PRN Reason: OPIATERV Nifedipine (Nifedipine Er (24 Hr) 30 Mg Tablet) 60 mg PO DAILY [facility] Last Admin: 09/27/24 14:48 Dose: 60 mg Nitroglycerin (Nitroglycerin 0.4 Mg Sublingual Tablet) 0.4 mg SUBLINGUAL Q5M PRN PRN Reason: CHEST PAIN Last Admin: 09/26/24 19:29 Dose: 0.4 mg Ondansetron HCl (Ondansetron 4 Mg Tablet) 4 mg PO Q6H PRN PRN Reason: NAUSEA Ondansetron HCl (Ondansetron 2 Mg/Ml Sdv 2 Ml) 4 mg IVP Q6H PRN PRN Reason: vomiting, or N/V if npo Last Admin: 09/27/24 13:43 Dose: 4 mg Promethazine HCl (Promethazine 25 Mg Tablet) 25 mg PO Q6H PRN PRN Reason: NAUSEA Last Admin: 09/27/24 13:37 Dose: 25 mg Scopolamine (Scopolamine 1 Mg Patch) 1 patch TRANSDERMA Q3D [facility] Last Admin: 09/27/24 13:37 Dose: 1 patch Senna (Sennosides 8.6 Mg Tablet) 17.2 mg PO DAILY [facility] Last Admin: 09/27/24 08:57 Dose: Not Given Sevelamer Carbonate (Sevelamer 800 Mg Tablet) 800 mg PO TID [facility] Last Admin: 09/27/24 21:01 Dose: 800 mg Vitals/I&O/Wt Last Vital Signs Temp 98.8 F 09/27/24 16:00 Pulse 62 09/28/24 06:03 Resp 4 L 09/28/24 06:03 BP 135/82 09/28/24 06:03 Pulse Ox 97 09/28/24 06:03 O2 Del Method Nasal Cannula 09/27/24 16:00 O2 Flow Rate 2 09/27/24 16:00 09/27/24 09/28/24 09/28/24 22:59 06:59 14:59 Intake Total 75.25 / 235.85 240.45 / 476.30 Balance 75.25 / 35.85 240.45 / 276.30 Weight last 48 hrs Weight 61.462 kg Weight 62.766 kg Weight 62.766 kg Weight 63.248 kg Weight 63.957 kg Physical Exam Narrative: in bed, no apparent distress. Vital signs noted. Using nasal cannula oxygen. HEENT normocephalic atraumatic. Neck is supple no JVP. Lungs- clear b/l Heart regular positive S1-S2 Abdomen is soft positive bowel sounds. Extremities left upper extremity AV graft with good thrill and bruit. She has a right IJ permacath. She has a toe amputation. no leg edema. Neuro awake alert and oriented x 3. Data 09/28/24 03:40 09/28/24 03:40 A&P Assessment and plan (1) End stage renal disease on dialysis: Plan 39-year-old lady CAD hypertension IDDM, anemia. Patient presents with nausea vomiting chest pain headaches significant hypertension. 1. ESRD- HD TTS. had extra SUF yesterday. attempt to lower her weight as tolerated 2. CAD and chest pain- for microbiological lab technician today 3. Anemia monitor hemoglobin: Recent ferritin of 1525 on September 08, 2024 no need for IV iron. will start giving Epogen. 4. Hypertension -attempt to simplify her medication resgimen and lower her dry weight on dialysis Patient was seen and examined using audiovisual equipment with the aid of a nurse. This was a telehealth visit. The patient consented to telehealth and to hemodialysis. PDMP PDMP Reviewed: Not Reviewed Attestations Medical Necessity Statement*: esrd, cad, htn Time Spent in Patient Care: 16 - 35 minutes (>than 50% of time spent in counselling and/or direct pt care on unit). Coding Level of Care Code Acute Code for Chg Fwd Diagnoses End stage renal disease on dialysis N18.6; Z99.2
[2024-09-28] MEDS: sennosides 8.6 mg Tablet 17.2 MG PO (08:18)
[2024-09-28] MEDS: carvedilol 3.125 mg Tablet PO ×2 (08:18→17:12)
[2024-09-28] MEDS: docusate sodium 100 mg Capsule 200 MG PO (08:18)
[2024-09-28] MEDS: NIFEdipine ER (24 hr) 30 mg Tablet 60 MG PO (08:18)
[2024-09-28] MEDS: clopidogrel 75 mg Tablet PO (08:19)
--- NOTE | 2024-09-28 08:53 | PC.CHAP ---
Pastoral Care Encounter/Spiritual Assessment Type of Contact [] Declined stacker operator visit [] Patient/Family/Request visit [] Outpatient visit [] Follow-up visit [] Physician referral [] Code/Alert [x] Routine visit [] Staff referral [] Actively dying [] Patient sleeping [] Family support [] [] Out of room [] Palliative care [] [] Receiving care in room [] Pre-surgical visit [] Trauma [] Long length of stay [] ICU visit [] Other: Relational/Emotional Strength [] Patient feels connected with others/family/visitors/staff [] Distress [] Loneliness/isolation [] Abandonment Spirituality of Patient [x] Person of Marly [] Attends Baptism of their [place] [x] Believes in Prayer [] Reads Bible or Quaker materials [] There are Spiritual issues to be addressed Garment Finisher Interventions [x] Prayer [x] Active listening [] Non-anxious presence [] Spiritual/emotional support [] Crisis/trauma care [] Spiritual counseling [] Bereavement support [] Provided bereavement packet [x] Provided Bible/devotional materials [] Provided toy/stuffed animal, coloring book to patient or family member [] Provided Communion [] Anointing/[place] [] Salvation [x] Completed spiritual assessment [] Other: Impact on Illness or Injury [] Angry [] Fearful [] Anxious [] Often cries [] Exhaustion [] Unable to work [] Unable to attend yazidism [] Unable to walk/stand [] Unable to read [] Unable to drive [] Unable to eat/drink [] Unable to sleep [] Unable to be with family [] Patient intubated [] Other: Summary Time spent with patient 5 min
--- NOTE | 2024-09-28 10:21 | PC.SOCIAL ---
IMM Updated Updated pt on IMM. No questions voiced. Provided pt a copy. Initialed, dated, & timed a copy & placed in chart.
[2024-09-28] MEDS: epoetin alfa-epbx 10,000 unit/ml SDV (ESRD) 10000 UNIT SUBCUT (10:25)
--- NOTE | 2024-09-28 10:41 | P.PN_ITS ---
<Statement entered by Austin Gallegos MD - 09/29/24 20:14> Patient was evaluated and cared for in conjunction with an advanced practice practitioner. I personally examined the patient and reviewed the chart and all pertinent data including imaging, telemetry, and laboratory results. I discussed the patient in detail with the advanced practice practitioner. Please see their note for complete H&P testing result and agreed upon plan of care for the patient. Patient was supposed to undergo left heart cath but because of nausea vomiting over the weekend she was not taken, she is still continue to have chest pain she is going for dialysis today GENERAL: Patient is alert, awake and oriented x3. HEART: Regular S1 and S2. No murmur, rub or gallop. LUNGS: Clear to auscultate bilaterally. CENTRAL NERVOUS SYSTEM: Grossly nonfocal. EXTREMITIES: Lower extremities with out edema bilaterally. Assessment and plan Chest pain suggestive of angina with prior history of severe coronary artery disease Chronic kidney disease status post hemodialysis Hypertension Continue to optimize medication to control blood pressure better Left heart cath after dialysis over next couple of days Subjective 2 Subjective: Patient doing well this morning. No complaints of chest pain at this time. Vitals/I&O/Wt Last Vital Signs Temp 97.9 F 09/28/24 07:46 Pulse 71 09/28/24 07:46 Resp 10 L 09/28/24 07:46 BP 140/76 09/28/24 07:46 Pulse Ox 100 09/28/24 07:46 O2 Del Method Nasal Cannula 09/28/24 07:46 O2 Flow Rate 2 09/27/24 16:00 09/27/24 09/28/24 09/28/24 22:59 06:59 14:59 Intake Total 75.25 / 235.85 240.45 / 476.30 Balance 75.25 / 35.85 240.45 / 276.30 Weight last 48 hrs Weight 135 lb 8 oz Weight 138 lb 6 oz Weight 138 lb 6 oz Weight 139 lb 7 oz Weight 141 lb Physical Exam 2 Narrative: General: No apparent distress, healthy appearing, well nourished HENMT: normoceophalic Muskuloskeletal: Full ROM Respiratory: Normal respiratory effort, clear to auscultation bilaterally throughout all lung torres, no use of accessory muscles Cardio: No JVD, regular rate, regular rhythm, S1 S2 normal, no murmurs, peripheral pulses 2+ radial palpated bilaterally Extremities: Full ROM, normal, normal capillary refill, no cyanosis or edema Neuro: Alert and oriented x4, no focal motor deficits Psych: Affect normal, denies suicidal ideation, mental status grossly normal Skin: No rashes or lesions noted, no wounds Data 09/28/24 03:40 09/28/24 03:40 A&P Assessment and plan (1) Hypertensive urgency: (2) NSTEMI (non-ST elevated myocardial infarction): (3) Chest pain: Qualifiers: Chest pain type: precordial pain Qualified Code(s): R07.2 - Precordial pain (4) ESRD (end stage renal disease): (5) CHF (congestive heart failure), NYHA class III: Qualifiers: Congestive heart failure type: systolic Congestive heart failure chronicity: acute on chronic Qualified Code(s): I50.23 - Acute on chronic systolic (congestive) heart failure Plan Nausea and vomiting has subsided. We will need to proceed with left heart cath possible PCI. Will schedule her tentatively for tomorrow around 5 PM. She will need dialysis after. PDMP PDMP Reviewed: Not Reviewed Attestations 2 Medical Necessity Statement*: Deferred to primary. Coding Level of Care Code Acute Code for [facility] Fwd Diagnoses Hypertensive urgency I16.0 NSTEMI (non-ST elevated myocardial infarction) I21.4 Precordial pain R07.2 Chest pain type: precordial pain ESRD (end stage renal disease) N18.6 Acute on chronic systolic congestive heart failure, NYHA class 3 I50.23 Congestive heart failure type: systolic Congestive heart failure chronicity: acute on chronic
[2024-09-28] MEDS: heparin drip 25,000 UNIT/500 ML PREMIX 21 UNIT IV (10:49)
--- NOTE | 2024-09-28 11:06 | PM.PN ---
Subjective Subjective: seen this am has been having cp on and off overnight however at this time not having any CP vomiting has resolved. plan for cath in AM Vitals/I&O/Wt Last Vital Signs Temp 98.0 F 09/28/24 10:57 Pulse 61 09/28/24 10:57 Resp 12 09/28/24 10:57 BP 130/65 09/28/24 10:57 Pulse Ox 97 09/28/24 10:57 O2 Del Method Nasal Cannula 09/28/24 10:57 O2 Flow Rate 2 09/27/24 16:00 09/27/24 09/28/24 09/28/24 22:59 06:59 14:59 Intake Total 75.25 / 235.85 240.45 / 476.30 Balance 75.25 / 35.85 240.45 / 276.30 Weight last 48 hrs Weight 61.462 kg Weight 62.766 kg Weight 62.766 kg Weight 63.248 kg Weight 63.957 kg Physical Exam Const: OTHER: GENERAL: Patient is alert, awake and oriented x3. resting comfortably in bed at this time HEART: Regular S1 and S2. No murmur, rub or gallop. LUNGS: Clear to auscultate bilaterally. no wheezes or ronchi Neuro: Grossly nonfocal. EXTREMITIES: no edema b/l LE Data 09/28/24 03:40 09/28/24 03:40 A&P Assessment and plan (1) Hypertensive emergency: (2) End stage renal disease on dialysis: (3) Chest pain: Qualifiers: Chest pain type: precordial pain Qualified Code(s): R07.2 - Precordial pain Plan Donita Aguilar is a 39 year old female w/ oliguric ESRD on TTS HD via a R. IJ permcath and LUE AVG, CAD s/p 8 stents, including one OLENA to the LCx on 09/09/2024 for an NSTEMI, chronic HFpEF, IDDM2, chronic diarrhea, & Anxiety d/o, who was brought to the ED on 09/26/2024 w/ complaints of chest pain. #Chest pain: Although atypical, she does have risk factors. #CAD: Continue Aspirin, Plavix, Carvedilol continue NTG drip, Start heparin drip. F/u A1c, lipid panel, UA/UDS, ECHO. Her TSH on 09/09/2024 was 4.98. #Hypertensive Emergency: Continue NTG drip. #IDDM2: Held her insulin glargine. Ordered low dose SSI for meals and bedtime. #Neuropathy: Continue Gabapentin. #oliguric ESRD on TTS HD via a R. IJ permcath and LUE AVG - She started using her LUE AVG today. - Defer Nephrology consult to the hospitalist. #Chronic Anemia: Will monitor #Anxiety d/o: After discussion w/ the patient, increased her Escitalopram to 20mg. #chronic diarrhea: not an issue during this admission DVT ppx: Heparin drip. September 27, 2024 Patient having intense amount of vomiting this morning. Not controlled with as needed Zofran. Added as needed Reglan, scopolamine patch and as needed promethazine. He is currently on a nitroglycerin infusion however blood pressure is 200/100. Add as needed hydralazine and as needed labetalol. Adding IV medications for now as patient is on likely to be able to tolerate oral medications. Once able to tolerate p.o. intake will resume her nifedipine and lisinopril at home dosing. Check lipase to assess for potential pancreatitis as being the cause of persisting nausea. Patient is status postcholecystectomy. No diarrhea or abdominal pain at this time. Patient does complain of ongoing chest pain. She was evaluated by cardiology and plan for likely cath today, however with her intense vomiting she is unable to lay flat to be able to tolerate the procedure therefore this will be attempted tomorrow. In the interim continue heparin drip. Continue aspirin and Plavix and atorvastatin. Awaiting echocardiogram. Consult nephrology to maintain hemodialysis schedule in hospital 09/28/2024 plan for cath tomorrow at 5 pm 09/29, confirmed time and date with farm labor contractor over phone vomiting has subsided will need dialysis after cath echo completed: Mildly increased left ventricular cavity size. low normal left ventricular systolic function. Left ventricular ejection fraction is estimated at 50 %. Normal diastolic function. No significant valve abnormalities. There is no pericardial effusion. Right atrial pressure is around 15 mm of mercury. lipase at 14. continue heparin drip at this time. will continue to hold lantus at bedtime PDMP PDMP Reviewed: Not Reviewed Attestations Medical Necessity Statement*: plan for coronary angiogram in AM Diagnoses Hypertensive emergency I16.1 End stage renal disease on dialysis N18.6; Z99.2 Precordial pain R07.2 Chest pain type: precordial pain
[2024-09-28 11:25] LABS: Partial Thromboplastin Time 49.2 SECONDS (23.9-36.7)
[2024-09-28 11:28] LABS: Glucose Point of Care 115 mg/dL (70-110)
[2024-09-28] MEDS: heparin 5,000 unit/mL INJ 1 mL IVP (11:49)
--- NOTE | 2024-09-28 14:09 | PC.NURSE ---
Provider is updated on Hep B results.
[2024-09-28 14:40] LABS: Hepatitis B Surface Antigen Non-Reactive (Nonreactive)
[2024-09-28 15:32] LABS: Bacteria Urine Trace /hpf; Hyaline Casts Urine 4.95 /lpf; WBC Urine 0-5 /hpf (0-5)
[2024-09-28 15:36] LABS: Amphetamines Screen Urine Negative (Negative); Barbiturates Screen Urine Negative (Negative); Benzodiazepines Screen Urine Negative (Negative); Cocaine Screen Urine Negative (Negative); Opiate Screen Urine Positive (Negative); PCP Screen Urine Negative (Negative); THC Screen Urine Negative (Negative)
[2024-09-28 15:51] LABS: Urine Appearance Slightly Cloudy (CLEAR); Urine Color Yellow (Yellow)
[2024-09-28 15:52] LABS: Add Urine Microscopic? YES; Bilirubin Urine Neg (Negative); Blood Urine 2+ (Negative); Glucose Urine UA Trace (Normal); Ketones Urine Negative (Negative); Leukocyte Esterase Urine Negative (Negative); Nitrate Urine Negative (Negative); Protein Urine 3+ (Negative); Urobilinogen Urine Norm (Negative); pH Urine 8 (5-7)
[2024-09-28 15:57] LABS: UA Slide Review UA Slide Review Perf
[2024-09-28 15:59] LABS: RBC Urine 0-4 /hpf (0-2)
[2024-09-28 15:59] LABS: Hepatitis B Core AB, Total Non-Reactive (Nonreactive); Hepatitis B Surface AB 22.6 (11.5-1000); Hepatitis B Surface Antigen Non-Reactive (Nonreactive)
[2024-09-28] MEDS: sevelamer 800 mg Tablet PO ×2 (16:14→20:23)
[2024-09-28 16:38] LABS: Glucose Point of Care 100 mg/dL (70-110)
[2024-09-28 18:59] LABS: Partial Thromboplastin Time 82.1 SECONDS (23.9-36.7)
[2024-09-28] MEDS: escitalopram 10 mg Tablet 20 MG PO (20:23)
[2024-09-28] MEDS: atorvastatin 40 mg Tablet PO (20:23)
[2024-09-28 20:47] LABS: Glucose Point of Care 168 mg/dL (70-110)
[2024-09-29] VITALS (9 sets, daily range): BP systolic 119–157; BP diastolic 49–80; PULSE 54–76; RESP 12–18; TEMP 36.4–37.3; O2SAT 90–100
[2024-09-29 03:15] LABS: Basophils # 0.1 10^3/uL (0.0-0.1); Eosinophils # 0.4 10^3/uL (0.0-0.8); Eosinophils % 5.7 %; Hematocrit 31.8 % (36-47); Lymphocytes # 2.1 10^3/uL (0.8-4.8); Lymphocytes % 33.3 %; Mean Corpuscular HGB Conc 32.1 g/dL (30-55); Mean Corpuscular Hemoglobin 30.4 pg (27-33); Mean Corpuscular Volume 94.9 fl (85-98); Mean Platelet Volume 10.8 fL (7.4-10.4); Monocytes # 0.5 10^3/uL (0.2-0.9); Monocytes % 7.8 %; Neutrophils # 3.26 10^3/uL (1.8-7.7); Nucleated Red Blood Cells % 0 %; Platelet Count 138 10^3/cmm (157-399); Red Blood Count 3.35 10^6/uL (3.85-5.65); Red Cell Distribution Width 14.7 % (12.1-15.1); White Blood Count 6.27 10^3/uL (3.29-11.43)
[2024-09-29 03:35] LABS: Partial Thromboplastin Time 75.7 SECONDS (23.9-36.7)
[2024-09-29 03:55] LABS: Alanine Aminotransferase 14 U/L (0-33); Albumin Level 3.7 g/dL (3.5-5.2); Alkaline Phosphatase 145 U/L (35-105); Anion Gap 19.1 (5-19); Aspartate Amino Transferase 15 U/L (0-32); Blood Urea Nitrogen 35 mg/dL (6-20); Calcium 8.7 mg/dL (8.5-10.5); Carbon Dioxide 25 mmol/L (22-29); Chloride 95 mmol/L (98-107); Creatinine Clr Calc Pharmacy 10.2423; Globulin 4.2 g/dL (1.3-4.6); Glomerular Filtration Rate 7.7 mL/min (90-130); Glucose 202 mg/dL (65-115); Magnesium 2.3 mg/dL (1.7-2.3); Osmolality Calculated 294 mOsm/kg (285-295); Phosphorus 4.7 mg/dL (2.5-4.5); Potassium 4.1 mmol/L (3.5-5.1); Sodium 135 mmol/L (136-145); Total Bilirubin 0.3 mg/dL (0.15-1.2); Total Protein 7.9 g/dL (6.6-8.7)
[2024-09-29] MEDS: HYDROmorphone 0.5 MG/0.5 ML INJ IVP ×5 (05:09→22:33)
[2024-09-29] MEDS: aspirin 81 mg EC Tablet PO (05:09)
[2024-09-29] MEDS: lisinopril 20 mg Tablet PO (05:09)
[2024-09-29 06:07] LABS: Glucose Point of Care 193 mg/dL (70-110)
--- NOTE | 2024-09-29 08:02 | PM.PN ---
Subjective Subjective: still has chest paoin. weak, nausea, some SOB. Medications: Reviewed: Yes Medication Review Details: Current Medications Acetaminophen (Acetaminophen 325 Mg Tablet) 650 mg PO Q6H PRN PRN Reason: Mild/Mod Pain Or Temp >/= 101 Aspirin (Aspirin 81 Mg Ec Tablet) 81 mg PO QAM [facility] Last Admin: 09/29/24 05:09 Dose: 81 mg Atorvastatin Calcium (Atorvastatin 40 Mg Tablet) 40 mg PO BEDTIME [facility] Last Admin: 09/28/24 20:23 Dose: 40 mg Carvedilol (Carvedilol 3.125 Mg Tablet) 3.125 mg PO BID [facility] Last Admin: 09/28/24 17:12 Dose: 3.125 mg Clopidogrel Bisulfate (Clopidogrel 75 Mg Tablet) 75 mg PO DAILY [facility] Last Admin: 09/28/24 08:19 Dose: 75 mg Diphenhydramine HCl (Diphenhydramine 50 Mg Capsule) 50 mg PO ONCE ONE Stop: 09/29/24 16:01 Docusate Sodium (Docusate Sodium 100 Mg Capsule) 200 mg PO DAILY [facility] Last Admin: 09/28/24 08:18 Dose: 200 mg Escitalopram Oxalate (Escitalopram 10 Mg Tablet) 20 mg PO BEDTIME [facility] Last Admin: 09/28/24 20:23 Dose: 20 mg Glucagon (Glucagon 1 Mg/Ml Kit 1 Ml) 1 mg IM ONCE PRN; Protocol PRN Reason: Adult Acute Hypoglycemia Nursing Prot. Heparin Sodium (Porcine) (Heparin 5,000 Unit/Ml Inj 1 Ml) 0 unit IVP PRN PRN; Protocol PRN Reason: Heparin Weight Based Protocol -Subsequent Bolus Last Admin: 09/28/24 11:49 Dose: 1,300 unit Hydralazine HCl (Hydralazine 20 Mg/Ml Inj 1 Ml) 10 mg IVP Q4H PRN PRN Reason: HYPERTENSION Hydromorphone HCl (Hydromorphone 0.5 Mg/0.5 Ml Inj) 0.5 mg IVP Q4H PRN PRN Reason: SEVERE PAIN Last Admin: 09/29/24 05:09 Dose: 0.5 mg Nitroglycerin/Dextrose (Nitroglycerin Drip) 50 mg in 250 mls @ 0 mls/hr IV .Q0M [facility]; Protocol Last Titration: 09/27/24 18:49 Dose: 0 mcg/min, 0 mls/hr Dextrose (D5w) 500 mls @ 0 mls/hr IV ONCE PRN; Protocol PRN Reason: Adult Acute Hypoglycemia Prot Dextrose (D10w) 125 mls @ 750 mls/hr IV PRN PRN; Protocol PRN Reason: Adult Acute Hypoglycemia Nursing Protocol Dextrose (D10w) 250 mls @ 1,000 mls/hr IV PRN PRN; Protocol PRN Reason: Adult Acute Hypoglycemia Nursing Protocol Heparin Sodium/Sodium Chloride (Heparin Drip) 25,000 unit in 500 mls @ 0 mls/hr IV CONT [facility]; Protocol Last Titration: 09/29/24 05:38 Dose: 16.6 unit/kg/hr, 21 mls/hr Sodium Chloride (Sodium Chloride 0.9%) 1,000 mls @ 50 mls/hr IV .Q20H ONE Stop: 09/30/24 10:59 Insulin Human Lispro (Insulin Lispro 100 Unit/1 Ml) 0 unit SUBCUT TIDWM [facility]; Protocol Last Admin: 09/28/24 17:12 Dose: Not Given Insulin Human Lispro (Insulin Lispro 100 Unit/1 Ml) 0 unit SUBCUT BEDTIME [facility]; Protocol Last Admin: 09/28/24 21:51 Dose: Not Given Labetalol HCl (Labetalol 5 Mg/Ml Sdv 20ml) 10 mg IVP Q4H PRN PRN Reason: SBP > 160 Lisinopril (Lisinopril 20 Mg Tablet) 20 mg PO QAM [facility] Last Admin: 09/29/24 05:09 Dose: 20 mg Metoclopramide HCl (Metoclopramide 5 Mg/Ml Sdv 2 Ml) 5 mg IVP Q6H PRN PRN Reason: NAUSEA AND VOMITING Last Admin: 09/27/24 09:23 Dose: 5 mg Naloxone HCl (Naloxone 0.4 Mg/Ml Sdv) 0.1 mg IVP Q2M PRN PRN Reason: OPIATERV Nifedipine (Nifedipine Er (24 Hr) 30 Mg Tablet) 60 mg PO DAILY [facility] Last Admin: 09/28/24 08:18 Dose: 60 mg Nitroglycerin (Nitroglycerin 0.4 Mg Sublingual Tablet) 0.4 mg SUBLINGUAL Q5M PRN PRN Reason: CHEST PAIN Last Admin: 09/26/24 19:29 Dose: 0.4 mg Ondansetron HCl (Ondansetron 4 Mg Tablet) 4 mg PO Q6H PRN PRN Reason: NAUSEA Ondansetron HCl (Ondansetron 2 Mg/Ml Sdv 2 Ml) 4 mg IVP Q6H PRN PRN Reason: vomiting, or N/V if npo Last Admin: 09/27/24 13:43 Dose: 4 mg Promethazine HCl (Promethazine 25 Mg Tablet) 25 mg PO Q6H PRN PRN Reason: NAUSEA Last Admin: 09/27/24 13:37 Dose: 25 mg Scopolamine (Scopolamine 1 Mg Patch) 1 patch TRANSDERMA Q3D [facility] Last Admin: 09/27/24 13:37 Dose: 1 patch Senna (Sennosides 8.6 Mg Tablet) 17.2 mg PO DAILY [facility] Last Admin: 09/28/24 08:18 Dose: 17.2 mg Sevelamer Carbonate (Sevelamer 800 Mg Tablet) 800 mg PO TID [facility] Last Admin: 09/28/24 20:23 Dose: 800 mg Vitals/I&O/Wt Last Vital Signs Temp 97.7 F 09/29/24 07:42 Pulse 56 L 09/29/24 07:42 Resp 12 09/29/24 07:42 BP 126/72 09/29/24 07:42 Pulse Ox 100 09/29/24 07:42 O2 Del Method Nasal Cannula 09/29/24 07:42 O2 Flow Rate 2 09/29/24 07:42 09/28/24 09/29/24 09/29/24 22:59 06:59 14:59 Intake Total 620 / 640.65 393.283 / 1033.933 Balance 620 / 540.65 393.283 / 933.933 Weight last 48 hrs Weight 60.328 kg Weight 60.328 kg Weight 61.462 kg Physical Exam Narrative: in bed, no apparent distress. Vital signs noted. Using nasal cannula oxygen. HEENT normocephalic atraumatic. Neck is supple no JVP. Lungs- clear b/l Heart regular positive S1-S2 Abdomen is soft positive bowel sounds. Extremities left upper extremity AV graft with good thrill and bruit. She has a right IJ permacath. She has a toe amputation. no leg edema. Neuro awake alert and oriented x 3. Data 09/29/24 02:51 09/29/24 02:51 A&P Assessment and plan (1) End stage renal disease on dialysis: Plan 39-year-old lady CAD hypertension IDDM, anemia. Patient presents with nausea vomiting chest pain headaches significant hypertension. 1. ESRD- HD TTS. HD today attempt to lower her weight as tolerated 2. CAD and chest pain- for labor relations analyst today 3. Anemia monitor hemoglobin: Recent ferritin of 1525 on September 08, 2024 no need for IV iron. will start giving Epogen. 4. Hypertension -bp low now- dec meds 5. hep b conversion- isolate on dialysis for now. please send to ID or railroad car loader to confirtm and to decide on treatment Patient was seen and examined using audiovisual equipment with the aid of a nurse. This was a telehealth visit. The patient consented to telehealth and to hemodialysis. PDMP PDMP Reviewed: Not Reviewed Attestations Medical Necessity Statement*: for labor relations analyst and HD todsy Time Spent in Patient Care: 16 - 35 minutes (>than 50% of time spent in counselling and/or direct pt care on unit). Coding Level of Care Code Acute Code for Chg Fwd Diagnoses End stage renal disease on dialysis N18.6; Z99.2
[2024-09-29] MEDS: sennosides 8.6 mg Tablet 17.2 MG PO (08:38)
[2024-09-29] MEDS: clopidogrel 75 mg Tablet PO (08:38)
[2024-09-29] MEDS: carvedilol 3.125 mg Tablet PO ×2 (08:39→18:02)
[2024-09-29] MEDS: docusate sodium 100 mg Capsule 200 MG PO (08:39)
[2024-09-29 08:54] LABS: Hepatitis B Surface AG NON-REACTIVE (NON-REACTIVE)
[2024-09-29] MEDS: sevelamer 800 mg Tablet PO ×3 (09:15→20:22)
[2024-09-29] MEDS: insulin lispro 100 unit/1 mL SUBCUT ×3 (09:16→20:23)
--- NOTE | 2024-09-29 09:57 | P.PN_ITS ---
<Statement entered by Austin Gallegos MD - 09/29/24 20:48> Patient was evaluated and cared for in conjunction with an advanced practice practitioner. I personally examined the patient and reviewed the chart and all pertinent data including imaging, telemetry, and laboratory results. I discussed the patient in detail with the advanced practice practitioner. Please see their note for complete H&P testing result and agreed upon plan of care for the patient. Patient says she still have off-and-on chest pain and would like to do left heart cath she thinks that pain is same when she had her prior stents GENERAL: Patient is alert, awake and oriented x3. HEART: Regular S1 and S2. No murmur, rub or gallop. LUNGS: Clear to auscultate bilaterally. CENTRAL NERVOUS SYSTEM: Grossly nonfocal. EXTREMITIES: Lower extremities with out edema bilaterally. Coronary artery disease extensive history of interventions for in-stent restenosis Chest pain suspicious for unstable angina Hypertension uncontrolled Continue IV nitro drip optimize medicine to control blood pressure Will proceed with left heart cath in the morning 6 AM Subjective 2 Subjective: Patient is not having any chest pain at this time. She was going to go for cath this morning. Creat is around 6.1. We will do this tomorrow around 6 AM. VSS. Vitals/I&O/Wt Last Vital Signs Temp 97.7 F 09/29/24 07:42 Pulse 56 L 09/29/24 07:42 Resp 12 09/29/24 07:42 BP 126/72 09/29/24 07:42 Pulse Ox 100 09/29/24 07:42 O2 Del Method Nasal Cannula 09/29/24 07:42 O2 Flow Rate 2 09/29/24 07:42 09/28/24 09/29/24 09/29/24 22:59 06:59 14:59 Intake Total 620 / 640.65 393.283 / 1033.933 240 / 240 Balance 620 / 540.65 393.283 / 933.933 240 / 240 Weight last 48 hrs Weight 133 lb Weight 133 lb Weight 135 lb 8 oz Physical Exam 2 Narrative: General: No apparent distress, healthy appearing, well nourished HENMT: normoceophalic Muskuloskeletal: Full ROM Respiratory: Normal respiratory effort, clear to auscultation bilaterally throughout all lung torrse, no use of accessory muscles Cardio: No JVD, regular rate, regular rhythm, S1 S2 normal, no murmurs, peripheral pulses 2+ radial palpated bilaterally Extremities: Full ROM, normal, normal capillary refill, no cyanosis or edema Neuro: Alert and oriented x4, no focal motor deficits Psych: Affect normal, denies suicidal ideation, mental status grossly normal Skin: No rashes or lesions noted, no wounds Data 09/29/24 02:51 09/29/24 02:51 A&P Assessment and plan (1) Hypertensive urgency: (2) NSTEMI (non-ST elevated myocardial infarction): (3) Chest pain: Qualifiers: Chest pain type: precordial pain Qualified Code(s): R07.2 - Precordial pain (4) ESRD (end stage renal disease): (5) CHF (congestive heart failure), NYHA class III: Qualifiers: Congestive heart failure type: systolic Congestive heart failure chronicity: acute on chronic Qualified Code(s): I50.23 - Acute on chronic systolic (congestive) heart failure Plan I believe patient is getting hemodialysis today. Creat is 6.1. The plan is to take her for left heart cath possible PCI tomorrow morning at 6 AM. At this time, she is comfortable without chest pain. PDMP PDMP Reviewed: Not Reviewed Attestations 2 Medical Necessity Statement*: Deferred to primary. Coding Level of Care Code Acute [facility] Diagnoses Hypertensive urgency I16.0 NSTEMI (non-ST elevated myocardial infarction) I21.4 Precordial pain R07.2 Chest pain type: precordial pain ESRD (end stage renal disease) N18.6 Acute on chronic systolic congestive heart failure, NYHA class 3 I50.23 Congestive heart failure type: systolic Congestive heart failure chronicity: acute on chronic
--- NOTE | 2024-09-29 10:15 | PC.NURSE ---
Dialysis nurse took patient for treatment at 1015.
[2024-09-29 10:45] LABS: Partial Thromboplastin Time 49.9 SECONDS (23.9-36.7)
[2024-09-29] MEDS: heparin drip 25,000 UNIT/500 ML PREMIX 22 UNIT IV (10:57)
[2024-09-29 11:23] LABS: Glucose Point of Care 135 mg/dL (70-110)
--- NOTE | 2024-09-29 11:55 | P.PN_ITS ---
Subjective 2 Subjective: seen this morning sitting up in bed cath planned for tomorrow 6 AM Vitals/I&O/Wt Last Vital Signs Temp 98.2 F 09/29/24 10:40 Pulse 59 L 09/29/24 10:40 Resp 18 09/29/24 10:40 BP 124/71 09/29/24 10:40 Pulse Ox 100 09/29/24 07:42 O2 Del Method Nasal Cannula 09/29/24 07:42 O2 Flow Rate 2 09/29/24 07:42 09/28/24 09/29/24 09/29/24 22:59 06:59 14:59 Intake Total 620 / 640.65 393.283 / 1033.933 326.067 / 326.067 Balance 620 / 540.65 393.283 / 933.933 326.067 / 326.067 Weight last 48 hrs Weight 60.328 kg Weight 60.328 kg Weight 61.462 kg Physical Exam 2 Const: OTHER: GENERAL: Patient is alert, awake and oriented x3. resting comfortably in bed at this time HEART: Regular S1 and S2. No murmur, rub or gallop. LUNGS: Clear to auscultate bilaterally. no wheezes or ronchi Neuro: Grossly nonfocal. EXTREMITIES: no edema b/l LE Data 09/29/24 02:51 09/29/24 02:51 A&P Assessment and plan (1) Hypertensive emergency: (2) End stage renal disease on dialysis: (3) Chest pain: Qualifiers: Chest pain type: precordial pain Qualified Code(s): R07.2 - Precordial pain Plan Donita Aguilar is a 39 year old female w/ oliguric ESRD on TTS HD via a R. IJ permcath and LUE AVG, CAD s/p 8 stents, including one OLENA to the LCx on 09/09/2024 for an NSTEMI, chronic HFpEF, IDDM2, chronic diarrhea, & Anxiety d/o, who was brought to the ED on 09/26/2024 w/ complaints of chest pain. #Chest pain: Although atypical, she does have risk factors. #CAD: Continue Aspirin, Plavix, Carvedilol continue NTG drip, Start heparin drip. F/u A1c, lipid panel, UA/UDS, ECHO. Her TSH on 09/09/2024 was 4.98. #Hypertensive Emergency: Continue NTG drip. #IDDM2: Held her insulin glargine. Ordered low dose SSI for meals and bedtime. #Neuropathy: Continue Gabapentin. #oliguric ESRD on TTS HD via a R. IJ permcath and LUE AVG - She started using her LUE AVG today. - Defer Nephrology consult to the hospitalist. #Chronic Anemia: Will monitor #Anxiety d/o: After discussion w/ the patient, increased her Escitalopram to 20mg. #chronic diarrhea: not an issue during this admission DVT ppx: Heparin drip. September 27, 2024 Patient having intense amount of vomiting this morning. Not controlled with as needed Zofran. Added as needed Reglan, scopolamine patch and as needed promethazine. He is currently on a nitroglycerin infusion however blood pressure is 200/100. Add as needed hydralazine and as needed labetalol. Adding IV medications for now as patient is on likely to be able to tolerate oral medications. Once able to tolerate p.o. intake will resume her nifedipine and lisinopril at home dosing. Check lipase to assess for potential pancreatitis as being the cause of persisting nausea. Patient is status postcholecystectomy. No diarrhea or abdominal pain at this time. Patient does complain of ongoing chest pain. She was evaluated by cardiology and plan for likely cath today, however with her intense vomiting she is unable to lay flat to be able to tolerate the procedure therefore this will be attempted tomorrow. In the interim continue heparin drip. Continue aspirin and Plavix and atorvastatin. Awaiting echocardiogram. Consult nephrology to maintain hemodialysis schedule in hospital 09/28/2024 plan for cath tomorrow at 5 pm 09/29, confirmed time and date with curb and gutter laborer over phone vomiting has subsided will need dialysis after cath echo completed: Mildly increased left ventricular cavity size. low normal left ventricular systolic function. Left ventricular ejection fraction is estimated at 50 %. Normal diastolic function. No significant valve abnormalities. There is no pericardial effusion. Right atrial pressure is around 15 mm of mercury. lipase at 14. continue heparin drip at this time. will continue to hold lantus at bedtime 09/29/2024 plan for left heart cath in am dialysis today recheck labs in am no other changes to plan today PDMP PDMP Reviewed: Not Reviewed Attestations 2 Medical Necessity Statement*: left heart cath in AM Diagnoses Hypertensive emergency I16.1 End stage renal disease on dialysis N18.6; Z99.2 Precordial pain R07.2 Chest pain type: precordial pain
[2024-09-29 12:09] LABS: Hepatitis B Envelope Antigen NON-REACTIVE (NON-REACTIVE); Hepatitis BE Antibody NON-REACTIVE (NON-REACTIVE)
--- NOTE | 2024-09-29 13:52 | PC.NURSE ---
Patient returned to unit from dialysis, 2.5L removed, at 1352.
[2024-09-29 14:04] LABS: Hepatitis B Virus DNA NOT DETECTED (NOT DETECTED); Hepatitis B Virus DNA PCR NOT DETECTED Log IU/mL (NOT DETECTED)
[2024-09-29 17:27] LABS: Glucose Point of Care 151 mg/dL (70-110)
[2024-09-29 17:32] LABS: Partial Thromboplastin Time 51.2 SECONDS (23.9-36.7)
[2024-09-29] MEDS: heparin 5,000 unit/mL INJ 1 mL IVP (18:09)
[2024-09-29] MEDS: escitalopram 10 mg Tablet 20 MG PO (20:22)
[2024-09-29] MEDS: atorvastatin 40 mg Tablet PO (20:22)
[2024-09-29 20:30] LABS: Glucose Point of Care 177 mg/dL (70-110)
[2024-09-30] VITALS (13 sets, daily range): BP systolic 100–195; BP diastolic 6–115; PULSE 62–76; RESP 11–18; TEMP 36.6–37.3; O2SAT 94–98
[2024-09-30 00:55] LABS: Basophils # 0.1 10^3/uL (0.0-0.1); Basophils % 0.8 %; Eosinophils # 0.3 10^3/uL (0.0-0.8); Eosinophils % 5.1 %; Hematocrit 29.7 % (36-47); Lymphocytes # 1.4 10^3/uL (0.8-4.8); Lymphocytes % 24.2 %; Mean Corpuscular HGB Conc 31.6 g/dL (30-55); Mean Corpuscular Hemoglobin 29.7 pg (27-33); Mean Platelet Volume 10.1 fL (7.4-10.4); Monocytes # 0.5 10^3/uL (0.2-0.9); Monocytes % 8.9 %; Neutrophils % 60.7 %; Nucleated Red Blood Cells % 0 %; Platelet Count 134 10^3/cmm (157-399); Red Blood Count 3.16 10^6/uL (3.85-5.65); Red Cell Distribution Width 14.9 % (12.1-15.1); White Blood Count 5.94 10^3/uL (3.29-11.43)
[2024-09-30 01:10] LABS: Alanine Aminotransferase 11 U/L (0-33); Albumin Level 3.5 g/dL (3.5-5.2); Alkaline Phosphatase 129 U/L (35-105); Anion Gap 15.1 (5-19); Aspartate Amino Transferase 14 U/L (0-32); Blood Urea Nitrogen 17 mg/dL (6-20); Calcium 8.6 mg/dL (8.5-10.5); Carbon Dioxide 26 mmol/L (22-29); Chloride 101 mmol/L (98-107); Creatinine Clr Calc Pharmacy 14.2652; Globulin 3.5 g/dL (1.3-4.6); Glomerular Filtration Rate 11.5 mL/min (90-130); Glucose 141 mg/dL (65-115); Magnesium 2.1 mg/dL (1.7-2.3); Osmolality Calculated 290 mOsm/kg (285-295); Phosphorus 3.3 mg/dL (2.5-4.5); Potassium 4.1 mmol/L (3.5-5.1); Sodium 138 mmol/L (136-145); Total Bilirubin 0.2 mg/dL (0.15-1.2)
[2024-09-30 01:15] LABS: Partial Thromboplastin Time 89.1 SECONDS (23.9-36.7)
[2024-09-30] MEDS: HYDROmorphone 0.5 MG/0.5 ML INJ IVP ×3 (02:37→14:31)
[2024-09-30] MEDS: sodium chloride 0.9% 1,000 ML 50 ML IV (05:10)
[2024-09-30] MEDS: aspirin 81 mg EC Tablet PO (05:11)
[2024-09-30] MEDS: lisinopril 20 mg Tablet PO (05:11)
[2024-09-30] MEDS: diphenhydrAMINE 50 mg Capsule PO (05:11)
--- NOTE | 2024-09-30 06:00 | XACV_ITS ---
Exam Room: 2 Ht: 152 cm Wt: 60 kg BSA: 1.61 m2 Gender: Female : 1985 Any Known Allergies: Other Exam Priority: Routine Procedure(s): Procedure Description: Diagnostic procedure Procedure Description: Left Heart Catheterization Procedure Description: Coronary Angiography El REA; Diagnostic Cath Status: Elective Conclusions 1. 1. Left main has luminal irregularity with distal 10% stenosis #2 LAD has luminal irregularity with patent previously placed proximal stent with mild in-stent restenosis #3 LCx has luminal irregularity without significant in-stent restenosis in ostial to proximal stent #4 RCA is moderate size and caliber vessel which is dominant has proximal 40% stenosis, there is also distal 40% in-stent restenosisLVEDP was moderately elevated 22 mmHgLV gram was not performed. Recommendations * 1-Return to inpatient for close monitoring and routine cath care 2-Risk factor modification for secondary prevention 3-Statin and aspirin 81 mg life-long, if tolerated 4-Continue Plavix 75mg p.o. daily for at least one year. We will assess at the end of one year again to continue if further or not 5-Continue optimal medical management 6-Follow up with cardiology and primary care physician regularly. Diagnostic RX Recommendation: medical therapy and/or counseling Pressures Phase:Rest AO : 185 / 81 ( 116 ) @ 7:50:00 AM 185 / 81 ( 117 ) @ 7:50:00 AM LV : 186 / - @ 7:49:00 AM 190 / -7 / 25 @ 7:50:00 AM Valves Phase:DefaultPhase AV : 12.0 @ 7:08:39 AM AV Mean Gradient: 23.0 @ 7:08:39 AM Clinical Evaluation EBL: 5mL-10mL Procedural Details Procedure Consent Obtained. Hemodynamic formulas in Rest were re-calculated based on hemoglobin value from 09/30/2024 12:00:00 AM. Pre-Procedure Time Out. Identified patient by full name and date of as verbalized by the patient/guarantor. Does the consent match the physician's order: No. Accurate & Complete Informed Consent: Yes. Inpatient/Outpatient History & Physical on Chart: Yes. If H&P is completed, is and addenduem needed: No; If yes, is the addendum complete: N/A Emergent. Visualize and Verify Site with Patient/Guarantor: N/A. Relevant Radiology Images available: N/A. The risks, benefits, and alternatives of sedation and/or procedure were discussed by physician. The patient agrees to continue. Admit Source: In Patient. Procedure started. [facility] Clinical Fraility Score: 4: Vulnerable. Television Antenna Installer Indications: ACS > 24 hours. Chest Pain Symptom Assessment: Typical Angina Symptoms. Correct patient, site and procedure confirmed by cath team. Current diagnosis: NSTEMI. PERRLA. Strong, equal hand dry house tender bilaterally. Lungs clear x 5 lobes. IV Site on Arrival: 18 gauge in the right upper arm. IV Fluids: 0.9% NaCl at KVO. 0 mL infused prior to general labor. Oxygen started at 2liters/min via nasal canula. Pre Procedural Pulses: bilateral dorsalis pedis was 2+. Pre Procedural Pulses: bilateral posterior tibial was 1+. bilateral groins was prepped with chloroprep then draped in the usual sterile fashion. Physician notified. Physician arrived. Physician scrubbed in. Immediate Pre-Procedure Time Out. Correct Patient: Yes; Correct Procedure: Yes; Correct Site: Yes; Correct Patient Position: Yes; Correct Supplies: Yes; Dried Flammable Prep: Yes; Blood Products Available: No;. Lidocaine 1% infiltrated to the right groin. Arterial access obtained with micropuncture set. A 5 albanian JL4 catheter in over wire. EDP Sample taken: LV 186/-10,21; HR: 58 BPM; SpO2: 83%. Pullback taken: LV 190/-8,25; AO 185/81(116); Mean: 23mmHg, Peak to Peak: 12mmHg, SEP: 18sec/min; HR: 67 BPM; SpO2: Off%. Multiple views taken of left coronary artery. Catheter removed over the standard wire. A 5 albanian JR4 catheter in over wire. Multiple views taken of right coronary artery. Catheter removed over the standard wire. A Right femoral angiogram was performed to determine safe placement of closure device. Lidocaine 1% infiltrated to the right groin. A Angio-Seal VIP ([facility]) was successful obtaining hemostatsis at the Right Femoral artery insertion site. EXP 04-16-2025 LOT # [id number]. Post Procedure: Pulses reassessed and unchanged. PERRLA. Strong, equal hand dry house tender bilaterally. No VTE prophylaxis required. Medication's Wasted: Lidocaine 1% = 10 mL. Medication's Wasted: Heparin = 1000 unit. Medication's Wasted: Other = fentanyl 75 mcg. Total IV fluids: 30 mL. Post-op diagnosis: Non obstructive CAD, Patent prior stents. Complications: None. Estimated blood loss: 5mL-10mL. Responsiveness - Normal response to verbal stimuli; alert and oriented, PERRLA. Airway - Unaffected, no intervention required; spontaneous ventilation. Circulation: W/N/L, pulses unchanged. Nausea/Vomiting: No. Procedure completed. Patient transferred by bed to 1st floor. Vital chart was stopped. Access Site Site: Right Femoral artery Sheath Size: 6 Fr Hemostasis Method: Angio-Seal VIP ([facility]) Hemostasis Success: Successful Procedure Medications Start: 6:38 AM Stop: 6:38 AM Medication: Versed Amount: 1 mg Route: I.V. Start: 6:38 AM Stop: 6:38 AM Medication: Fentanyl Amount: 25 mcg Route: I.V. Start: 6:54 AM Stop: 6:54 AM Medication: Versed Amount: 1 mg Route: I.V. I, the attending physician, have reviewed and verified all procedure medications. Yes, all medications given per verbal order History/Risk Factors Hypertension: Yes Dyslipidemia: Yes Peripheral Arterial Disease (PAD): No Myocardial Infarction (AZ): Yes Obesity: No Renal Disease: No Prior Interventions PCI: Yes CABG: No Valve Surgery: No Date of PCI: 09/09/2024 Report Signatures Finalized by Austin Gallegos MD on 09/30/2024 07:20 AM
--- NOTE | 2024-09-30 06:32 | PC.NURSE ---
0608- Patient taken to slab polisher, heparin gtt paused for procedure.
--- NOTE | 2024-09-30 06:35 | W.PM.OPSUD ---
Surgery/Procedure H&P Update DATE OF PROCEDURE: September 30, 2024 DATE H&P PERFORMED: 09/26/24 H&P UPDATE INFORMATION: I have reviewed H&P completed within last 30 days, I have examined patient prior to procedure and No changes to prior documentation PREOP DIAGNOSIS: Non-STEMI PRIMARY INDICATION FOR PROCEDURE: Non-STEMI/recurrent chest pain PLANNED PROCEDURE: Operation Date: 09/29/24 17:00 Proposed Procedures p Cardiac Catheterization(Left) - Austin Gallegos MD PATIENT REASSESSED PRIOR TO SEDATION, WITH NO CHANGE NOTED: Yes PHYSICAL EXAM: alert, oriented x 3, clear to auscultation bilaterally and regular rate & rhythm AIRWAY EVAL/ANESTHESIA PLAN: ASA II, Risks, benefits & alternatives of sedation and/or procedure discussed and Patient agrees to continue as planned ADDITIONAL INFORMATION: Patient has been explained all risk-benefit and alternative for the procedure. Patient understand 2% risk of stroke major bleed, patient understand 5% risk of minor bleeding hematoma infection she is on dialysis already however cannot rule out further damage to the kidneys, she understand risk for urgent or emergent bypass or vascular surgery and pseudoaneurysm. She would like to proceed with it.
--- NOTE | 2024-09-30 07:18 | PC.NURSE ---
Patient returned from lab support service tech at 0718. She can get up at 1100.
--- NOTE | 2024-09-30 07:21 | PM.PN ---
Subjective Subjective: Patient underwent left heart cath today noted to have patent previously placed circumflex LAD and RCA stent without significant in-stent restenosis Medications: Reviewed: Yes Medication Review Details: Current Medications Acetaminophen (Acetaminophen 325 Mg Tablet) 650 mg PO Q6H PRN PRN Reason: Mild/Mod Pain Or Temp >/= 101 Aspirin (Aspirin 81 Mg Ec Tablet) 81 mg PO QAM [facility] Last Admin: 09/29/24 05:09 Dose: 81 mg Atorvastatin Calcium (Atorvastatin 40 Mg Tablet) 40 mg PO BEDTIME SHAY Last Admin: 09/28/24 20:23 Dose: 40 mg Carvedilol (Carvedilol 3.125 Mg Tablet) 3.125 mg PO BID [facility] Last Admin: 09/28/24 17:12 Dose: 3.125 mg Clopidogrel Bisulfate (Clopidogrel 75 Mg Tablet) 75 mg PO DAILY [facility] Last Admin: 09/28/24 08:19 Dose: 75 mg Diphenhydramine HCl (Diphenhydramine 50 Mg Capsule) 50 mg PO ONCE ONE Stop: 09/29/24 16:01 Docusate Sodium (Docusate Sodium 100 Mg Capsule) 200 mg PO DAILY [facility] Last Admin: 09/28/24 08:18 Dose: 200 mg Escitalopram Oxalate (Escitalopram 10 Mg Tablet) 20 mg PO BEDTIME SHAY Last Admin: 09/28/24 20:23 Dose: 20 mg Glucagon (Glucagon 1 Mg/Ml Kit 1 Ml) 1 mg IM ONCE PRN; Protocol PRN Reason: Adult Acute Hypoglycemia Nursing Prot. Heparin Sodium (Porcine) (Heparin 5,000 Unit/Ml Inj 1 Ml) 0 unit IVP PRN PRN; Protocol PRN Reason: Heparin Weight Based Protocol -Subsequent Bolus Last Admin: 09/28/24 11:49 Dose: 1,300 unit Hydralazine HCl (Hydralazine 20 Mg/Ml Inj 1 Ml) 10 mg IVP Q4H PRN PRN Reason: HYPERTENSION Hydromorphone HCl (Hydromorphone 0.5 Mg/0.5 Ml Inj) 0.5 mg IVP Q4H PRN PRN Reason: SEVERE PAIN Last Admin: 09/29/24 05:09 Dose: 0.5 mg Nitroglycerin/Dextrose (Nitroglycerin Drip) 50 mg in 250 mls @ 0 mls/hr IV .Q0M SHAY; Protocol Last Titration: 09/27/24 18:49 Dose: 0 mcg/min, 0 mls/hr Dextrose (D5w) 500 mls @ 0 mls/hr IV ONCE PRN; Protocol PRN Reason: Adult Acute Hypoglycemia Prot Dextrose (D10w) 125 mls @ 750 mls/hr IV PRN PRN; Protocol PRN Reason: Adult Acute Hypoglycemia Nursing Protocol Dextrose (D10w) 250 mls @ 1,000 mls/hr IV PRN PRN; Protocol PRN Reason: Adult Acute Hypoglycemia Nursing Protocol Heparin Sodium/Sodium Chloride (Heparin Drip) 25,000 unit in 500 mls @ 0 mls/hr IV CONT SHAY; Protocol Last Titration: 09/29/24 05:38 Dose: 16.6 unit/kg/hr, 21 mls/hr Sodium Chloride (Sodium Chloride 0.9%) 1,000 mls @ 50 mls/hr IV .Q20H ONE Stop: 09/30/24 10:59 Insulin Human Lispro (Insulin Lispro 100 Unit/1 Ml) 0 unit SUBCUT TIDWM [facility]; Protocol Last Admin: 09/28/24 17:12 Dose: Not Given Insulin Human Lispro (Insulin Lispro 100 Unit/1 Ml) 0 unit SUBCUT BEDTIME SHAY; Protocol Last Admin: 09/28/24 21:51 Dose: Not Given Labetalol HCl (Labetalol 5 Mg/Ml Sdv 20ml) 10 mg IVP Q4H PRN PRN Reason: SBP > 160 Lisinopril (Lisinopril 20 Mg Tablet) 20 mg PO QAM [facility] Last Admin: 09/29/24 05:09 Dose: 20 mg Metoclopramide HCl (Metoclopramide 5 Mg/Ml Sdv 2 Ml) 5 mg IVP Q6H PRN PRN Reason: NAUSEA AND VOMITING Last Admin: 09/27/24 09:23 Dose: 5 mg Naloxone HCl (Naloxone 0.4 Mg/Ml Sdv) 0.1 mg IVP Q2M PRN PRN Reason: OPIATERV Nifedipine (Nifedipine Er (24 Hr) 30 Mg Tablet) 60 mg PO DAILY [facility] Last Admin: 09/28/24 08:18 Dose: 60 mg Nitroglycerin (Nitroglycerin 0.4 Mg Sublingual Tablet) 0.4 mg SUBLINGUAL Q5M PRN PRN Reason: CHEST PAIN Last Admin: 09/26/24 19:29 Dose: 0.4 mg Ondansetron HCl (Ondansetron 4 Mg Tablet) 4 mg PO Q6H PRN PRN Reason: NAUSEA Ondansetron HCl (Ondansetron 2 Mg/Ml Sdv 2 Ml) 4 mg IVP Q6H PRN PRN Reason: vomiting, or N/V if npo Last Admin: 09/27/24 13:43 Dose: 4 mg Promethazine HCl (Promethazine 25 Mg Tablet) 25 mg PO Q6H PRN PRN Reason: NAUSEA Last Admin: 09/27/24 13:37 Dose: 25 mg Scopolamine (Scopolamine 1 Mg Patch) 1 patch TRANSDERMA Q3D [facility] Last Admin: 09/27/24 13:37 Dose: 1 patch Senna (Sennosides 8.6 Mg Tablet) 17.2 mg PO DAILY [facility] Last Admin: 09/28/24 08:18 Dose: 17.2 mg Sevelamer Carbonate (Sevelamer 800 Mg Tablet) 800 mg PO TID [facility] Last Admin: 09/28/24 20:23 Dose: 800 mg Vitals/I&O/Wt Last Vital Signs Temp 98.2 F 09/30/24 03:08 Pulse 62 09/30/24 06:23 Resp 15 09/30/24 05:11 BP 167/6 09/30/24 05:11 Pulse Ox 95 09/30/24 05:11 O2 Del Method Room Air 09/30/24 03:08 O2 Flow Rate 2 09/29/24 07:42 09/29/24 09/30/24 09/30/24 22:59 06:59 14:59 Intake Total 1248.4 / 1814.467 263.266 / 2077.733 Output Total 3000 / 3000 0 / 3000 Balance -1751.6 / -1185.533 263.266 / -922.267 Weight last 48 hrs Weight 128 lb 6.4 oz Weight 128 lb 4.8 oz Weight 130 lb 4.691 oz Weight 133 lb Weight 133 lb Physical Exam Const: COMMON NORMALS: alert OTHER: GENERAL: Patient is alert, awake and oriented x3. HEART: Regular S1 and S2. No murmur, rub or gallop. LUNGS: Clear to auscultate bilaterally. CENTRAL NERVOUS SYSTEM: Grossly nonfocal.. Resp: COMMON NORMALS: clear to auscultation bilaterally AUSCULTATION: clear to auscultation bilaterally Neuro: SENSORIUM/ORIENTATION: Yes alert Data 09/30/24 00:34 09/30/24 00:34 A&P Assessment and plan (1) Hypertensive urgency: (2) NSTEMI (non-ST elevated myocardial infarction): (3) Chest pain: Qualifiers: Chest pain type: precordial pain Qualified Code(s): R07.2 - Precordial pain (4) ESRD (end stage renal disease): (5) CHF (congestive heart failure), NYHA class III: Qualifiers: Congestive heart failure type: systolic Congestive heart failure chronicity: acute on chronic Qualified Code(s): I50.23 - Acute on chronic systolic (congestive) heart failure Plan Most likely chest pain is atypical cannot rule out subclinical pericarditis May can try colchicine No significant in-stent restenosis noted Blood pressure need to be meticulously controlled I would like to place patient on valsartan however it is not a formulary here therefore I will switch her from lisinopril to losartan 100 mg as an outpatient patient can be switched to valsartan 160 mg daily and can be titrated up continue rest of the medication include aspirin statin Plavix and beta-marii Once blood pressure well-controlled from cardiovascular perspective patient can be discharged home PDMP PDMP Reviewed: Not Reviewed Attestations Medical Necessity Statement*: As per medicine Coding Level of Care Code Acute Code for [facility] Fwd Diagnoses Hypertensive urgency I16.0 NSTEMI (non-ST elevated myocardial infarction) I21.4 Precordial pain R07.2 Chest pain type: precordial pain ESRD (end stage renal disease) N18.6 Acute on chronic systolic congestive heart failure, NYHA class 3 I50.23 Congestive heart failure type: systolic Congestive heart failure chronicity: acute on chronic
[2024-09-30 08:25] LABS: Glucose Point of Care 148 mg/dL (70-110)
[2024-09-30 08:30] LABS: Partial Thromboplastin Time 24.7 SECONDS (23.9-36.7)
[2024-09-30] MEDS: docusate sodium 100 mg Capsule 200 MG PO (08:56)
[2024-09-30] MEDS: insulin lispro 100 unit/1 mL SUBCUT (08:56)
[2024-09-30] MEDS: clopidogrel 75 mg Tablet PO (08:56)
[2024-09-30] MEDS: sennosides 8.6 mg Tablet 17.2 MG PO (08:57)
[2024-09-30] MEDS: losartan 50 mg Tablet 100 MG PO (08:57)
[2024-09-30] MEDS: carvedilol 3.125 mg Tablet PO (08:57)
[2024-09-30] MEDS: sevelamer 800 mg Tablet PO (08:57)
--- NOTE | 2024-09-30 09:31 | PM.PN ---
Subjective Subjective: s/p cardiac cath this am- was negative. she remains lethargic Medications: Reviewed: Yes Medication Review Details: Current Medications Acetaminophen (Acetaminophen 325 Mg Tablet) 650 mg PO Q6H PRN PRN Reason: Mild/Mod Pain Or Temp >/= 101 Al Hydrox/Mg Hydrox/Simethicone (Chcq-Irh-Xilhvrxgj-Rubén 30 Ml Udc) 30 ml PO Q15M PRN PRN Reason: INDIGESTION Alprazolam (Alprazolam 0.5 Mg Tablet) 0.25 mg PO TID PRN PRN Reason: ANXIETY Aspirin (Aspirin 81 Mg Ec Tablet) 81 mg PO QAM [facility] Last Admin: 09/30/24 05:11 Dose: 81 mg Atorvastatin Calcium (Atorvastatin 40 Mg Tablet) 40 mg PO BEDTIME [facility] Last Admin: 09/29/24 20:22 Dose: 40 mg Atropine Sulfate (Atropine 1 Mg/Ml Sdv 1 Ml) 0.5 mg IVP PRN PRN PRN Reason: Symptomatic bradycardia Carvedilol (Carvedilol 3.125 Mg Tablet) 3.125 mg PO BID [facility] Last Admin: 09/30/24 08:57 Dose: 3.125 mg Clopidogrel Bisulfate (Clopidogrel 75 Mg Tablet) 75 mg PO DAILY [facility] Last Admin: 09/30/24 08:56 Dose: 75 mg Docusate Sodium (Docusate Sodium 100 Mg Capsule) 200 mg PO DAILY [facility] Last Admin: 09/30/24 08:56 Dose: 200 mg Escitalopram Oxalate (Escitalopram 10 Mg Tablet) 20 mg PO BEDTIME [facility] Last Admin: 09/29/24 20:22 Dose: 20 mg Glucagon (Glucagon 1 Mg/Ml Kit 1 Ml) 1 mg IM ONCE PRN; Protocol PRN Reason: Adult Acute Hypoglycemia Nursing Prot. Heparin Sodium (Porcine) (Heparin 5,000 Unit/Ml Inj 1 Ml) 0 unit IVP PRN PRN; Protocol PRN Reason: Heparin Weight Based Protocol -Subsequent Bolus Last Admin: 09/29/24 18:09 Dose: 1,300 unit Hydralazine HCl (Hydralazine 20 Mg/Ml Inj 1 Ml) 10 mg IVP Q4H PRN PRN Reason: HYPERTENSION Hydromorphone HCl (Hydromorphone 0.5 Mg/0.5 Ml Inj) 0.5 mg IVP Q4H PRN PRN Reason: SEVERE PAIN Last Admin: 09/30/24 02:37 Dose: 0.5 mg Nitroglycerin/Dextrose (Nitroglycerin Drip) 50 mg in 250 mls @ 0 mls/hr IV .Q0M SHAY; Protocol Last Titration: 09/27/24 18:49 Dose: 0 mcg/min, 0 mls/hr Dextrose (D5w) 500 mls @ 0 mls/hr IV ONCE PRN; Protocol PRN Reason: Adult Acute Hypoglycemia Prot Dextrose (D10w) 125 mls @ 750 mls/hr IV PRN PRN; Protocol PRN Reason: Adult Acute Hypoglycemia Nursing Protocol Dextrose (D10w) 250 mls @ 1,000 mls/hr IV PRN PRN; Protocol PRN Reason: Adult Acute Hypoglycemia Nursing Protocol Heparin Sodium/Sodium Chloride (Heparin Drip) 25,000 unit in 500 mls @ 0 mls/hr IV CONT SHAY; Protocol Last Titration: 09/30/24 06:08 Dose: 0 unit/kg/hr, 0 mls/hr Sodium Chloride (Sodium Chloride 0.9%) 1,000 mls @ 50 mls/hr IV .Q20H ONE Stop: 09/30/24 23:59 Last Admin: 09/30/24 05:10 Dose: 50 mls/hr Insulin Human Lispro (Insulin Lispro 100 Unit/1 Ml) 0 unit SUBCUT TIDWM SHAY; Protocol Last Admin: 09/30/24 08:56 Dose: 2 unit Insulin Human Lispro (Insulin Lispro 100 Unit/1 Ml) 0 unit SUBCUT BEDTIME SHAY; Protocol Last Admin: 09/29/24 20:23 Dose: 1 unit Labetalol HCl (Labetalol 5 Mg/Ml Sdv 20ml) 10 mg IVP Q4H PRN PRN Reason: SBP > 160 Losartan Potassium (Losartan 50 Mg Tablet) 100 mg PO DAILY [facility] Last Admin: 09/30/24 08:57 Dose: 100 mg Magnesium Hydroxide (Magnesium Hydroxide 30 Ml Udc) 30 ml PO DAILY PRN PRN Reason: CONSTIPATION Metoclopramide HCl (Metoclopramide 5 Mg/Ml Sdv 2 Ml) 5 mg IVP Q6H PRN PRN Reason: NAUSEA AND VOMITING Last Admin: 09/27/24 09:23 Dose: 5 mg Naloxone HCl (Naloxone 0.4 Mg/Ml Sdv) 0.1 mg IVP Q2M PRN PRN Reason: OPIATERV Nitroglycerin (Nitroglycerin 0.4 Mg Sublingual Tablet) 0.4 mg SUBLINGUAL Q5M PRN PRN Reason: CHEST PAIN Last Admin: 09/26/24 19:29 Dose: 0.4 mg Ondansetron HCl (Ondansetron 4 Mg Tablet) 4 mg PO Q6H PRN PRN Reason: NAUSEA Ondansetron HCl (Ondansetron 2 Mg/Ml Sdv 2 Ml) 4 mg IVP Q6H PRN PRN Reason: vomiting, or N/V if npo Last Admin: 09/27/24 13:43 Dose: 4 mg Promethazine HCl (Promethazine 25 Mg Tablet) 25 mg PO Q6H PRN PRN Reason: NAUSEA Last Admin: 09/27/24 13:37 Dose: 25 mg Scopolamine (Scopolamine 1 Mg Patch) 1 patch TRANSDERMA Q3D [facility] Last Admin: 09/27/24 13:37 Dose: 1 patch Senna (Sennosides 8.6 Mg Tablet) 17.2 mg PO DAILY [facility] Last Admin: 09/30/24 08:57 Dose: 17.2 mg Sevelamer Carbonate (Sevelamer 800 Mg Tablet) 800 mg PO TID [facility] Last Admin: 09/30/24 08:57 Dose: 800 mg Temazepam (Temazepam 15 Mg Capsule) 15 mg PO BEDTIME PRN PRN Reason: INSOMNIA Vitals/I&O/Wt Last Vital Signs Temp 98.2 F 09/30/24 07:11 Pulse 64 09/30/24 07:11 Resp 12 09/30/24 07:11 BP 174/92 09/30/24 08:57 Pulse Ox 96 09/30/24 07:11 O2 Del Method Room Air 09/30/24 07:11 O2 Flow Rate 2 09/29/24 07:42 09/29/24 09/30/24 09/30/24 22:59 06:59 14:59 Intake Total 1248.4 / 1814.467 263.266 / 2077.733 Output Total 3000 / 3000 0 / 3000 Balance -1751.6 / -1185.533 263.266 / -922.267 Weight last 48 hrs Weight 58.241 kg Weight 58.196 kg Weight 59.1 kg Weight 60.328 kg Weight 60.328 kg Physical Exam Narrative: in bed, no apparent distress. Vital signs noted. BP elevated HEENT normocephalic atraumatic. Neck is supple no JVP. Lungs- clear b/l Heart regular positive S1-S2 Abdomen is soft positive bowel sounds. Extremities left upper extremity AV graft with good thrill and bruit. groin not tender She has a right IJ permacath. She has a toe amputation. no leg edema. Neuro -lethargic s/p cardiac cath Data 09/30/24 00:34 09/30/24 00:34 A&P Assessment and plan (1) End stage renal disease on dialysis: see below- HD TTS Plan 39-year-old lady CAD hypertension IDDM, anemia. Patient presents with nausea vomiting chest pain headaches significant hypertension. 1. ESRD- HD TTS. s/p HD yesterday. -repeat HD tomorrow -outpt center should attempt to lower her weight as tolerated -use loop diuretic on non dialysis days 2. 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 Anemia monitor hemoglobin: Recent ferritin of 1525 on September 08, 2024 no need for IV iron. - Epogen. 4. Hypertension -bp now high- restart amlodipine 5. hep b conversion- isolate on dialysis for now. please send to ID or booster operator to confirtm and to decide on treatment Patient was seen and examined using audiovisual equipment with the aid of a nurse. This was a telehealth visit. The patient consented to telehealth and to hemodialysis. discussed w/ Dr Garcia PDMP PDMP Reviewed: Not Reviewed Attestations Medical Necessity Statement*: per hospitalist Time Spent in Patient Care: 16 - 35 minutes (>than 50% of time spent in counselling and/or direct pt care on unit). Coding Level of Care Code Acute Code for Chg Fwd Diagnoses End stage renal disease on dialysis N18.6; Z99.2
[2024-09-30] MEDS: amlodipine 5 mg Tablet PO (10:00)
[2024-09-30] MEDS: bumetanide 1 mg Tablet PO (10:00)
--- NOTE | 2024-09-30 10:15 | PC.SOCIAL ---
IMM Update pg 2 of IMM Updated and reviewed w/ patient. Copy provided and copy dated, initialed and placed in chart.
--- NOTE | 2024-09-30 11:31 | PM.DCS ---
Discharge Providers Date of Admission: 09/26/24 19:50 Date of Discharge: September 30, 2024 Attending Provider at Admission: Anjali Mejia MD Attending Provider at Discharge: Aleksandra Garcia MD Primary Care Provider: SUZANNE Dias Diagnoses at Discharge Discharge Diagnosis (1) End stage renal disease on dialysis: Status: Acute Reason for Visit Reason for Visit: chest pain Hospital Course Hospital Course Donita Aguilar is a 39 year old female w/ oliguric ESRD on TTS HD via a R. IJ permcath and LUE AVG, CAD s/p 8 stents, including one OLENA to the LCx on 09/09/2024 for an NSTEMI, chronic HFpEF, IDDM2, chronic diarrhea, & Anxiety d/o, who was brought to the ED on 09/26/2024 w/ complaints of chest pain. She underwent coronary angiogram during hospital stay and echo was repeated. No intervention performed. Patient will be discharged home today. She is stable. Cardiology following and has cleared patient for discharge. I personally examined patient's right groin no evidence of hematoma at this time. She will be returning dialyzed tomorrow on her regular dialysis day. Physical Exam Const: OTHER: GENERAL: Patient is alert, awake and oriented x3. resting comfortably in bed at this time HEART: Regular S1 and S2. No murmur, rub or gallop. LUNGS: Clear to auscultate bilaterally. no wheezes or ronchi Neuro: Grossly nonfocal. 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 echo complete* [id number] Routine Ultrasound 09/27/24 21:58 Completed Pending at discharge Category Date Time Status Basic Metabolic Panel AM LABS Lab 10/01/24 04:00 Ordered Complete Blood Count w/Auto AM LABS Lab 10/01/24 04:00 Ordered Radiology Impressions Chest X-Ray 09/26/24 14:06 IMPRESSION: 1. Left basilar atelectasis mild left effusion. 2. Support device in good position. Laboratory Results WBC 5.94 10^3/uL (3.29-11.43) 09/30/24 00:34 RBC 3.16 10^6/uL (3.85-5.65) L 09/30/24 00:34 Hgb 9.40 g/dL (11.27-16.99) L 09/30/24 00:34 Hct 29.7 % (36-47) L 09/30/24 00:34 MCV 94.0 fl (85-98) 09/30/24 00:34 MCH 29.7 pg (27-33) 09/30/24 00:34 MCHC 31.6 g/dL (30-55) 09/30/24 00:34 RDW 14.9 % (12.1-15.1) 09/30/24 00:34 Plt Count 134 10^3/cmm (157-399) L 09/30/24 00:34 MPV 10.1 fL (7.4-10.4) 09/30/24 00:34 Neut % (Auto) 60.7 % 09/30/24 00:34 Lymph % (Auto) 24.2 % 09/30/24 00:34 [place] % (Auto) 8.9 % 09/30/24 00:34 Eos % (Auto) 5.1 % 09/30/24 00:34 Baso % (Auto) 0.8 % 09/30/24 00:34 Neut # (Auto) 3.60 10^3/uL (1.8-7.7) 09/30/24 00:34 Lymph # (Auto) 1.4 10^3/uL (0.8-4.8) 09/30/24 00:34 [place] # (Auto) 0.5 10^3/uL (0.2-0.9) 09/30/24 00:34 Eos # (Auto) 0.3 10^3/uL (0.0-0.8) 09/30/24 00:34 Baso # (Auto) 0.1 10^3/uL (0.0-0.1) 09/30/24 00:34 Nucleated RBC % (auto) 0 % 09/30/24 00:34 Nucleated RBCs # 0.0 /100WBC 09/30/24 00:34 PT 13.30 SECONDS (12.1-14.9) 09/26/24 14:20 INR 0.95 (0.8-1.2) 09/26/24 14:20 APTT 24.7 SECONDS (23.9-36.7) D 09/30/24 08:10 Sodium 138 mmol/L (136-145) 09/30/24 00:34 Potassium 4.1 mmol/L (3.5-5.1) 09/30/24 00:34 Chloride 101 mmol/L (98-107) 09/30/24 00:34 Carbon Dioxide 26 mmol/L (22-29) 09/30/24 00:34 Anion Gap 15.1 (5-19) 09/30/24 00:34 BUN 17 mg/dL (6-20) 09/30/24 00:34 Creatinine 4.3 mg/dL (0.5-0.9) H 09/30/24 00:34 GFR Calculation 11.5 mL/min (90-130) L 09/30/24 00:34 Glucose 141 mg/dL (65-115) H 09/30/24 00:34 POC Glucose 148 mg/dL (70-110) H 09/30/24 07:26 Estimat Average Glucose 111 09/27/24 04:20 Hemoglobin A1c 5.5 % (4.0-6.0) 09/27/24 04:20 Calculated Osmolality 290 mOsm/kg (285-295) 09/30/24 00:34 Calcium 8.6 mg/dL (8.5-10.5) 09/30/24 00:34 Phosphorus 3.3 mg/dL (2.5-4.5) 09/30/24 00:34 Magnesium 2.1 mg/dL (1.7-2.3) 09/30/24 00:34 Total Bilirubin 0.2 mg/dL (0.15-1.2) 09/30/24 00:34 AST 14 U/L (0-32) 09/30/24 00:34 ALT 11 U/L (0-33) 09/30/24 00:34 Alkaline Phosphatase 129 U/L (35-105) H 09/30/24 00:34 Troponin T Baseline 248 ng/L (0-10) H* 09/26/24 14:15 Troponin T 120 Minute 246.5 ng/L (0-10) H 09/26/24 16:56 Delta Troponin T -1.5 ABS# (0-10) L 09/26/24 16:56 Troponin T Hi Sens 6Hr 231.6 ng/L (0-10) H 09/26/24 19:48 Troponin T Hi Sens 6Hr Delta -16.4 ng/L (0-12) L 09/26/24 19:48 Total Protein 7.0 g/dL (6.6-8.7) 09/30/24 00:34 Albumin 3.5 g/dL (3.5-5.2) 09/30/24 00:34 Globulin 3.5 g/dL (1.3-4.6) 09/30/24 00:34 Triglycerides 135 mg/dL (0-150) 09/27/24 04:20 Cholesterol 79 mg/dL (0-200) 09/27/24 04:20 LDL Cholesterol, Calc 12 mg/dL (50-129) L 09/27/24 04:20 HDL Cholesterol 40 mg/dL (60-100) L 09/27/24 04:20 LDL/HDL Ratio 0.30 RATIO (0.00-3.22) 09/27/24 04:20 Cholesterol/HDL Ratio 1.98 mg/dL (0.0-4.40) 09/27/24 04:20 Lipase 14 U/L (13-60) 09/27/24 04:20 Urine Color Yellow (Yellow) 09/28/24 15:02 Urine Appearance Slightly cloudy (CLEAR) 09/28/24 15:02 Urine pH 8 (5-7) A 09/28/24 15:02 Ur Specific [place] 1.010 (1.005-1.030) 09/28/24 15:02 Urine Protein 3+ (Negative) A 09/28/24 15:02 Urine Glucose (UA) Trace (Normal) H 09/28/24 15:02 Urine Ketones Negative (Negative) 09/28/24 15:02 Urine Blood 2+ (Negative) A 09/28/24 15:02 Urine Nitrate Negative (Negative) 09/28/24 15:02 Urine Bilirubin Neg (Negative) 09/28/24 15:02 Urine Urobilinogen Norm mg/dL (Negative) 09/28/24 15:02 Ur Leukocyte Esterase Negative (Negative) 09/28/24 15:02 Urine RBC 0-4 /hpf (0-2) H 09/28/24 15:02 Urine WBC 0-5 /hpf (0-5) 09/28/24 15:02 Ur Squamous Epith Cells 11-20 /hpf (0-5) H 09/28/24 15:02 Amorphous Sediment Not Reportable 09/28/24 15:02 Urine Bacteria Trace /hpf (NONE) 09/28/24 15:02 Hyaline Casts 4.95 /lpf 09/28/24 15:02 Urine Yeast 1+ /hpf H 09/28/24 15:02 Urine Opiates Screen Positive ng/mL (Negative) H 09/28/24 15:02 Ur Barbiturates Screen Negative ng/mL (Negative) 09/28/24 15:02 Ur Phencyclidine Scrn Negative ng/mL (Negative) 09/28/24 15:02 Ur Amphetamines Screen Negative ng/mL (Negative) 09/28/24 15:02 U Benzodiazepines Scrn Negative ng/mL (Negative) 09/28/24 15:02 Urine Cocaine Screen Negative ng/mL (Negative) 09/28/24 15:02 U Marijuana (THC) Screen Negative ng/mL (Negative) 09/28/24 15:02 Hep Bs Antigen Non-reactive (Nonreactive) 09/28/24 14:30 Hep Bs Antigen Non-reactive (NON-REACTIVE) 09/28/24 14:30 Hep Bs Ag Confirmation Not Reportable 09/28/24 14:30 Hep Bs Antibody 22.6 (11.5-1000) 09/28/24 14:30 Hep B Core Total Ab Non-reactive (Nonreactive) 09/28/24 14:30 Hepatitis B DNA (PCR) Not detected Log IU/mL (NOT DETECTED) 09/28/24 14:30 Hep B DNA Interpret Not detected IU/mL (NOT DETECTED) 09/28/24 14:30 Hepatitis Be Antibody Non-reactive (NON-REACTIVE) 09/28/24 14:30 Hepatitis Be Antigen Non-reactive (NON-REACTIVE) 09/28/24 14:30 Hepatitis C Antibody Non-reactive (Nonreactive) 09/27/24 17:30 Vitals Last Vital Signs Temp 97.8 F 09/30/24 08:00 Pulse 66 09/30/24 08:00 Resp 14 09/30/24 08:00 BP 174/92 09/30/24 08:57 Pulse Ox 95 09/30/24 08:00 O2 Del Method Room Air 09/30/24 08:00 O2 Flow Rate 2 09/29/24 07:42 Discharge Plan Discharge Patient Disposition: Home Condition: Stable Prescriptions: New losartan 50 mg Tablet 100 mg PO DAILY Qty: 60 0RF amlodipine 5 mg Tablet 5 mg PO DAILY Qty: 30 0RF Continued ([facility]) AFO brace See Rx Instructions .Route .MEDSUPPLY Qty: 1 0RF Rx Instructions: As directed to the shoe guys ([facility]) diabetic shoes with 3 inserts See Rx Instructions .Route .MEDSUPPLY Qty: 1 0RF Rx Instructions: As directed to the shoe guys ([facility]) Dexcom G6 Gas Maker Misc See Rx Instructions .Route Qty: 1 0RF Rx Instructions: As directed ([facility]) Dexcom G6 Sensor Device See Rx Instructions .Route Qty: 3 0RF Rx Instructions: As directed ([facility]) Dexcom G6 Transmitter Device See Rx Instructions .Route Qty: 1 0RF Rx Instructions: As directed atorvastatin 40 mg tablet 40 mg PO BEDTIME 30 Days Qty: 30 0RF aspirin 81 mg tablet,delayed release (DR/EC) 81 mg PO QAM 30 Days Qty: 30 0RF insulin glargine [Lantus Solostar U-100 Insulin] 100 unit/mL (3 mL) Insulin Pen 5 unit SUBCUT QPM insulin aspart U-100 [Novolog FlexPen U-100 Insulin] 100 unit/mL (3 mL) insulin pen 5 unit SUBCUT TID Qty: 15 0RF Rx Instructions: sliding scale sevelamer carbonate 800 mg Tablet 800 mg PO TID Qty: 90 0RF clonidine HCl 0.1 mg tablet See Rx Instructions .ROUTE .COMPLEX PRN (Reason: Blood Pressure) Rx Instructions: TAKE 1 TABLET IF SYSTOLIC BLOOD PRESSURE IS GREATER THAN 160, REPEAT ONCE IF SYSTOLIC BLOOD PRESSURE IS STILL OVER 160 AFTER 1 HOUR. gabapentin 100 mg Capsule 100 mg PO TID clopidogrel 75 mg tablet 75 mg PO DAILY carvedilol 3.125 mg tablet 3.125 mg PO BID escitalopram oxalate 10 mg tablet 10 mg PO DAILY Changed bumetanide 1 mg tablet See Rx Instructions .ROUTE .COMPLEX Qty: 60 0RF Rx Instructions: TAKE 1 TABLET BY MOUTH twice DAILY ON NON-DIALYSIS DAYS Discontinued amoxicillin 875 mg tablet 875 mg PO Q12H lisinopril 40 mg tablet 20 mg PO QAM Qty: 1 0RF nifedipine [Procardia XL] 60 mg tablet extended release 24hr 60 mg PO DAILY Qty: 90 0RF Discharge Orders: Discharge Order (Routine); Ordered 09/30/24 Ordered By: Aleksandra Garcia Referrals: Elizabeth Dougherty FNP [Primary Care Provider] - 10/05/24 9:00 am Elza Carranza FNP [Nurse Practitioner] - 10/06/24 1:30 pm Discharge Diet: Usual diet Discharge Activity: Limit activity as instructed Patient Instructions: Amlodipine (By mouth), Losartan (By mouth), Heart Attack (DC), Chest Pain (DC), Hypertensive Crisis (DC), Opioid Safety Discharge Attestations Time Spent in Discharge Care*: greater than 30 min Status at Discharge: Cognitive status at discharge: cognitively intact, Behavioral status at discharge: cooperative and independent in ADL's, Quality Metrics Clinical Quality Measures [ No reported AMI, CVA or VTE this stay] Coding Level of Care Code Acute Code for Chg Fwd Diagnoses End stage renal disease on dialysis N18.6; Z99.2
[2024-09-30 12:06] LABS: Glucose Point of Care 119 mg/dL (70-110)
--- NOTE | 2024-09-30 14:21 | P.PN_ITS ---
<Statement entered by Austin Gallegos MD - 10/03/24 10:51> Patient was evaluated and cared for in conjunction with an advanced practice practitioner. I personally examined the patient and reviewed the chart and all pertinent data including imaging, telemetry, and laboratory results. I discussed the patient in detail with the advanced practice practitioner. Please see their note for complete H&P testing result and agreed upon plan of care for the patient. Subjective 2 Subjective: Patient doing well without chest pain. She had her cath today. Cath showed nonobstructive coronary artery disease. Vitals/I&O/Wt Last Vital Signs Temp 98.9 F 09/30/24 12:00 Pulse 73 09/30/24 12:00 Resp 12 09/30/24 12:00 BP 165/97 09/30/24 12:00 Pulse Ox 95 09/30/24 12:00 O2 Del Method Room Air 09/30/24 12:00 O2 Flow Rate 2 09/29/24 07:42 09/29/24 09/30/24 09/30/24 22:59 06:59 14:59 Intake Total 1248.4 / 1814.467 263.266 / 2077.733 Output Total 3000 / 3000 0 / 3000 Balance -1751.6 / -1185.533 263.266 / -922.267 Weight last 48 hrs Weight 128 lb 6.4 oz Weight 128 lb 4.8 oz Weight 130 lb 4.691 oz Weight 133 lb Weight 133 lb Physical Exam 2 Narrative: General: No apparent distress, healthy appearing, well nourished HENMT: normoceophalic Muskuloskeletal: Full ROM Respiratory: Normal respiratory effort, clear to auscultation bilaterally throughout all lung torres, no use of accessory muscles Cardio: No JVD, regular rate, regular rhythm, S1 S2 normal, no murmurs, peripheral pulses 2+ radial palpated bilaterally Extremities: Full ROM, normal, normal capillary refill, no cyanosis or edema Neuro: Alert and oriented x4, no focal motor deficits Psych: Affect normal, denies suicidal ideation, mental status grossly normal Skin: No rashes or lesions noted, no wounds Data 09/30/24 00:34 09/30/24 00:34 A&P Assessment and plan (1) Hypertensive urgency: (2) NSTEMI (non-ST elevated myocardial infarction): (3) Chest pain: Qualifiers: Chest pain type: precordial pain Qualified Code(s): R07.2 - Precordial pain (4) ESRD (end stage renal disease): (5) CHF (congestive heart failure), NYHA class III: Qualifiers: Congestive heart failure type: systolic Congestive heart failure chronicity: acute on chronic Qualified Code(s): I50.23 - Acute on chronic systolic (congestive) heart failure Plan Patient has nonobstructive coronary artery disease. May be discharged from cardiology standpoint. PDMP PDMP Reviewed: Not Reviewed Attestations 2 Medical Necessity Statement*: Deferred to primary. Coding Level of Care Code Acute Code for [facility] Fwd Diagnoses Hypertensive urgency I16.0 NSTEMI (non-ST elevated myocardial infarction) I21.4 Precordial pain R07.2 Chest pain type: precordial pain ESRD (end stage renal disease) N18.6 Acute on chronic systolic congestive heart failure, NYHA class 3 I50.23 Congestive heart failure type: systolic Congestive heart failure chronicity: acute on chronic
[2024-09-30] MEDS: hyDRALAzine 20 mg/mL INJ 1 mL 10 MG IVP (14:43)
== END 2024-09-30 16:03 | disposition home or self-care (01) | DRG 280 ==
LOC: ER 17:40 → CSU 20:09
PROVIDERS: Internal Medicine; Internal Medicine Cardiovascular Disease; Internal Medicine Nephrology; Student in an Organized Health Care Education/Training Program; Admitting Provider Internal Medicine; Emergency Provider Emergency Medicine; PCP Nurse Practitioner Family; Visit Provider Internal Medicine
PROC: B211YZZ Fluoroscopy of Multiple Coronary Arteries using Other Contrast (ICD-10-PCS; principal; 2024-09-30 06:00)
DX: I16.0 Hypertensive urgency (principal); I50.23 Acute on chronic systolic (congestive) heart failure; I21.4 Non-ST elevation (NSTEMI) myocardial infarction; N18.6 End stage renal disease; I13.2 Hypertensive heart and chronic kidney disease with heart failure and with stage 5 chronic kidney disease, or end stage renal disease; E10.22 Type 1 diabetes mellitus with diabetic chronic kidney disease; K52.9 Noninfective gastroenteritis and colitis, unspecified; F41.9 Anxiety disorder, unspecified; J44.9 Chronic obstructive pulmonary disease, unspecified; E78.5 Hyperlipidemia, unspecified; I27.20 Pulmonary hypertension, unspecified; D63.1 Anemia in chronic kidney disease; E10.43 Type 1 diabetes mellitus with diabetic autonomic (poly)neuropathy; K31.84 Gastroparesis; E10.40 Type 1 diabetes mellitus with diabetic neuropathy, unspecified; N31.9 Neuromuscular dysfunction of bladder, unspecified; Z99.2 Dependence on renal dialysis; Z79.82 Long term (current) use of aspirin; Z79.4 Long term (current) use of insulin; Z79.02 Long term (current) use of antithrombotics/antiplatelets; Z87.01 Personal history of pneumonia (recurrent); Z86.16 Personal history of COVID-19; Z86.14 Personal history of Methicillin resistant Staphylococcus aureus infection; Z89.421 Acquired absence of other right toe(s)
CPT/HCPCS: 36415; 36416; 51798; 71045; 80053; 80061; 80306; 81001; 82962; 83036; 83690; 83735; 84100; 84484; 85025; 85610; 85730; 86705; 86706; 86707; 86803; 87340; 87350; 87517; 90935; 93005; 93306; 93458; 96365; 96372; 96375; 96376; 99152; 99153; 99285; A9270; C1760; C1769; C1887; C1894; G0269; J0360; J1171; J1644; J1815; J2250; J2270; J2405; J2765; J3010; J3490; J7030; J9999; Q0163; Q0169; Q3014; Q5105; Q9967

== ENCOUNTER → 2024-10-06 13:11 | Outpatient (BNVA) | payer MEDICARE, MEDICAID, SELFPAY | PROVIDERS: PCP Nurse Practitioner Family; Referring Provider Internal Medicine; Visit Provider Nurse Practitioner Family | DX: Z09 Encounter for follow-up examination after completed treatment for conditions other than malignant neoplasm (principal); I25.10 Atherosclerotic heart disease of native coronary artery without angina pectoris; Z79.4 Long term (current) use of insulin; I13.2 Hypertensive heart and chronic kidney disease with heart failure and with stage 5 chronic kidney disease, or end stage renal disease; E10.22 Type 1 diabetes mellitus with diabetic chronic kidney disease; N18.6 End stage renal disease; I50.9 Heart failure, unspecified | CPT/HCPCS: 99214 ==

== ENCOUNTER → 2024-10-07 08:57 | Outpatient (BNVA) | payer MEDICARE, MEDICAID, SELFPAY | PROVIDERS: PCP Nurse Practitioner Family; Visit Provider Internal Medicine | DX: E10.65 Type 1 diabetes mellitus with hyperglycemia (principal); E78.2 Mixed hyperlipidemia; E16.0 Drug-induced hypoglycemia without coma; T38.3X5A Adverse effect of insulin and oral hypoglycemic [antidiabetic] drugs, initial encounter; R74.01 Elevation of levels of liver transaminase levels; X58.XXXA Exposure to other specified factors, initial encounter | CPT/HCPCS: 99214 ==

== ENCOUNTER 2024-10-16 19:38 | Emergency (ER) | payer MEDICARE, MEDICAID, SELFPAY ==
--- NOTE | 2024-10-16 19:42 | ECG_ITS ---
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
[2024-10-16 19:44] VITALS: BP 150/88; PULSE 63; RESP 18; TEMP 36.8; O2SAT 99
--- NOTE | 2024-10-16 19:47 | XRR_ITS ---
PROCEDURE INFORMATION: Exam: XR Chest Exam date and time: 10/16/2024 8:24 PM Age: 39 years old Clinical indication: Chest pressure; Prior surgery; Surgery date: 6+ months; Surgery type: Dialysis cath; C/O chest pain TECHNIQUE: Imaging protocol: Radiologic exam of the chest. Views: 1 view. COMPARISON: CR (CHEST, ) 09/26/2024 2:20 PM FINDINGS: Tubes, catheters and devices: Right-sided central venous catheter with its distal tip in the superior atriocaval junction. Lungs: Haziness within the right lung. Left lung base atelectasis. Pleural spaces: Unremarkable. No pleural effusion. No pneumothorax. Heart/Mediastinum: Unremarkable. No cardiomegaly. Bones/joints: Unremarkable. XR/XR chest 1V portable [id number] IMPRESSION: As above.
[2024-10-16 20:16] VITALS: BP 149/77; PULSE 65; RESP 16; O2SAT 97
[2024-10-16 20:43] LABS: Basophils % 0.6 %; Eosinophils # 0.6 10^3/uL (0.0-0.8); Eosinophils % 9.3 %; Hematocrit 32.2 % (36-47); Lymphocytes # 1.5 10^3/uL (0.8-4.8); Lymphocytes % 24.4 %; Mean Corpuscular HGB Conc 31.4 g/dL (30-55); Mean Corpuscular Hemoglobin 31.1 pg (27-33); Mean Corpuscular Volume 99.1 fl (85-98); Mean Platelet Volume 10.6 fL (7.4-10.4); Monocytes # 0.4 10^3/uL (0.2-0.9); Neutrophils # 3.61 10^3/uL (1.8-7.7); Neutrophils % 58.5 %; Nucleated Red Blood Cells % 0 %; Platelet Count 139 10^3/cmm (157-399); Red Blood Count 3.25 10^6/uL (3.85-5.65); Red Cell Distribution Width 14.8 % (12.1-15.1); White Blood Count 6.16 10^3/uL (3.29-11.43)
--- NOTE | 2024-10-16 20:44 | W.ED.CHESTPA ---
HPI - Chest Pain General: Chief Complaint: Chest Pain Stated Complaint: CP Time Seen by Provider: 10/16/24 20:01 History of Present Illness: The patient is a woman with a history of heart attack and dialysis who presented to the ER with chest pain. The pain began approximately 3 hours prior to arrival, around 3 PM. The patient reports that she had been doing some cleaning in the bathroom when the pain started. She sat down to eat, but the pain continued to worsen. The pain is located in her chest area. When asked about the character of the pain, the patient did not provide specific details. However, she indicated that pressing on her chest during the examination partially replicated the pain she was experiencing. The patient lives on the other side [facility]. Of note, the patient had a cardiac catheterization performed on September 30, approximately 16 days prior to this presentation. She is also on a regular dialysis schedule, with her next session due tomorrow. Related Data Home Medications ?Medication ?Instructions ?Recorded ?Confirmed clonidine HCl 0.1 mg tablet See Rx Instructions .Route 11/27/23 10/07/24 .COMPLEX PRN Blood Pressure gabapentin 100 mg capsule 100 mg PO TID 12/27/23 10/07/24 insulin glargine 100 unit/mL (3 5 unit SUBCUT QPM 04/06/24 10/07/24 mL) subcutaneous pen (Lantus Solostar U-100 Insulin) clopidogrel 75 mg tablet 75 mg PO DAILY 04/28/24 10/07/24 carvedilol 3.125 mg tablet 3.125 mg PO BID 09/05/24 10/07/24 escitalopram oxalate 10 mg tablet 10 mg PO DAILY 09/07/24 10/07/24 Previous Rx's ?Medication ?Instructions ?Recorded blood-glucose meter,continuous #1 ea 06/12/22 (Dexcom G6 Architecture Technician) blood-glucose sensor (Dexcom G6 #3 ea 06/12/22 Sensor device) blood-glucose transmitter (Dexcom #1 ea 06/12/22 G6 Transmitter device) sevelamer carbonate 800 mg tablet 800 mg PO TID #90 tabs 09/16/23 aspirin 81 mg tablet,delayed 81 mg PO QAM 30 days #30 tabs 03/28/24 release atorvastatin 40 mg tablet 40 mg PO BEDTIME 30 days #30 tabs 03/28/24 insulin aspart U-100 100 unit/mL 5 unit (0.05 mL) SUBCUT TID #15 mL 04/11/24 (3 mL) subcutaneous pen (Novolog FlexPen U-100 Insulin aspart) AFO brace #1 ea 04/20/24 diabetic shoes with 3 inserts #1 ea 04/20/24 amlodipine 5 mg tablet 5 mg PO DAILY #30 tabs 09/30/24 bumetanide 1 mg tablet See Rx Instructions .Route 09/30/24 .COMPLEX #60 tabs losartan 50 mg tablet 100 mg (2 x 50 mg) PO DAILY #60 09/30/24 tabs Allergies Allergy/AdvReac Type Severity Reaction Status Date / Time acetaminophen AdvReac Mild ADR-Gastrointestinal Verified 10/16/24 19:47 Upset Review of Systems General: Reports: 10 or more systems reviewed and unremarkable except in HPI and below PFSH ED PFSH: Medical History Headache Accelerated hypertension Uncontrolled type 1 diabetes mellitus ESRD (end stage renal disease) Dialysis complication Hypoglycemia Hemodialysis catheter dysfunction Hyperkalemia Colitis End stage renal disease on dialysis COPD (chronic obstructive pulmonary disease) Diabetes mellitus Transaminitis Intractable nausea and vomiting Hyperlipidemia HTN (hypertension) CHF (congestive heart failure), NYHA class III Pulmonary hypertension CAD (coronary artery disease) Neurogenic bladder COVID-19 Tobacco dependence Drug abuse Anemia Community acquired pneumonia Esophagitis Long-term insulin use History of pancreatitis Celiac disease Recurrent UTI Non-alcoholic fatty liver disease Arnold-Chiari malformation Diabetic gastroparesis -continue Reglan Diabetic neuropathy associated with type 1 diabetes mellitus Headache, common migraine, intractable, with status migrainosus Pleural effusion 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 History of lung surgery -s/p LLL lobectomy secondary to cavitary pneumonia (2017) History of endoscopy History of cholecystectomy Family History Grandfather Diabetes Mother CAD (coronary artery disease) Diabetes Heart disease Hypertension Brother Acute lymphoblastic leukemia (ALL) in child Grandmother Thyroid disease Denies family history of Colon cancer Ovarian cancer Prostate cancer Hyperlipidemia Breast cancer Uterine cancer Stroke Social History Smoking and tobacco/nicotine status: former use of tobacco/nicotine Quit status (tobacco/nicotine): has quit using Former quit date comment: She previously smoked <1/2 PPD, quit July 2023. Second hand smoke exposure: Yes Alcohol intake: never Substance/Drug Use: current Household members: children Housing: House Marital status: Single Current occupational status: unemployed Physical Exam Const: COMMON NORMALS: patient oriented x3 (Very anxious), alert and well nourished HENMT: COMMON NORMALS: normocephalic HEAD & SCALP: normocephalic Eye: COMMON NORMALS: Equal, round and reactive pupils present, EOMs intact bilaterally and conjunctivae normal CONJUNCTIVA: Yes conjunctivae normal PUPIL: Yes Equal, round and reactive pupils present Neck/C-Spine: COMMON NORMALS: full ROM, no lymphadenopathy, supple, no meningeal signs, no JVD and Thyroid normal THYROID: Thyroid normal Chest: COMMONS NORMALS: normal inspection of the chest and normal palpation of entire chest wall Resp: COMMON NORMALS: normal respiratory effort, No retractions, No use of accessory muscles, clear to auscultation bilaterally and percussion normal AUSCULTATION: clear to auscultation bilaterally PERCUSSION: percussion normal Cardio: COMMON NORMALS: no JVD GI: COMMON NORMALS: Normal to inspection, nondistended, normoactive bowel sounds present, Soft to palpation, non-tender, No hepatosplenomegaly present, no masses and no bruits PALPATION: Yes Soft to palpation and Yes No hepatosplenomegaly present : COMMON NORMALS: Yes no CVA tenderness BLADDER/KIDNEY EXAM: Yes no CVA tenderness Back/Pelvis: COMMON NORMALS: no CVA tenderness Extremity: COMMON NORMALS: normal to inspection, full ROM, capillary refill normal, no joint enlargement, no clubbing, cyanosis or edema, no calf tenderness and no pedal edema Neuro: COMMON NORMALS: patient oriented x3 (Very anxious) SENSORIUM/ORIENTATION: Yes alert MENINGEAL SIGNS: Yes no meningeal signs Skin: COMMON NORMALS: no rashes or lesions noted, turgor normal and no jaundice GENERAL SKIN EXAM: no rashes or lesions noted and turgor normal Course Vital Signs: Vital signs: Vital Signs Temperature 98.3 F 10/16/24 19:44 Pulse Rate 62 10/17/24 00:28 Respiratory Rate 18 10/17/24 00:28 Blood Pressure 161/78 10/17/24 00:28 Pulse Oximetry 97 10/17/24 00:28 Oxygen Delivery Me thod Room Air 10/16/24 23:30 MDM - Chest Pain Medical Decision Making 39-year-old female with past medical history of end-stage renal disease on dialysis that presents to the emergency room frequently for chest pain presents again for chest pain. Her initial EKG is normal sinus rhythm without any ST segment elevation and her initial troponin is at her baseline though this is significantly elevated. Plan to trend this out. Unable to do a CTA or D-dimer as the patient is end-stage renal disease. The patient's O2 saturation in pulse rate are normal making PE less likely. Favoring an MSK source at this time. Patient did have 2 nitros at home that did not cause the pain to celestina. Patient's evaluation was negative for acute coronary syndrome including downtrending tropes, no ST abnormalities on her EKGs, and reassuring vital signs. She did show hypertension during this stay that appears similar to previous visits. The patient and her were mainly concerned with getting her pain under control and requesting morphine to do so. She received a dose of morphine and was significantly better and agreeable to discharge to home. Return precautions were discussed and the patient was discharged home in stable condition. Lab Data 10/16/24 20:35 10/16/24 20:35 Radiology Impressions Chest X-Ray 10/16/24 19:47 IMPRESSION: As above. Laboratory Results WBC 6.16 10^3/uL (3.29-11.43) 10/16/24 20:35 RBC 3.25 10^6/uL (3.85-5.65) L 10/16/24 20:35 Hgb 10.10 g/dL (11.27-16.99) L 10/16/24 20:35 Hct 32.2 % (36-47) L 10/16/24 20:35 MCV 99.1 fl (85-98) H 10/16/24 20:35 MCH 31.1 pg (27-33) 10/16/24 20:35 MCHC 31.4 g/dL (30-55) 10/16/24 20:35 RDW 14.8 % (12.1-15.1) 10/16/24 20:35 Plt Count 139 10^3/cmm (157-399) L 10/16/24 20:35 MPV 10.6 fL (7.4-10.4) H 10/16/24 20:35 Neut % (Auto) 58.5 % 10/16/24 20:35 Lymph % (Auto) 24.4 % 10/16/24 20:35 Bucks % (Auto) 7.0 % 10/16/24 20:35 Eos % (Auto) 9.3 % 10/16/24 20:35 Baso % (Auto) 0.6 % 10/16/24: Neut # (Auto) 3.61 10^3/uL (1.8-7.7) 10/16/24 20: Lymph # (Auto) 1.5 10^3/uL (0.8-4.8) 10/16/24 20:35 Bucks # (Auto) 0.4 10^3/uL (0.2-0.9) 10/16/24 20:35 Eos # (Auto) 0.6 10^3/uL (0.0-0.8) 10/16/24 20:35 Baso # (Auto) 0.0 10^3/uL (0.0-0.1) 10/16/24 20:35 Nucleated RBC % (auto) 0 % 10/16/24: Nucleated RBCs # 0.0 /100WBC 10/16/24 20:35 Sodium 142 mmol/L (136-145) 10/16/24 20:35 Potassium 4.4 mmol/L (3.5-5.1) 10/16/24 20:35 Chloride 99 mmol/L (98-107) 10/16/24 20:35 Carbon Dioxide 29 mmol/L (22-29) 10/16/24 20:35 Anion Gap 18.4 (5-19) 10/16/24 20:35 BUN 30 mg/dL (6-20) H 10/16/24 20:35 Creatinine 4.9 mg/dL (0.5-0.9) H 10/16/24 20:35 GFR Calculation 9.9 mL/min (90-130) L 10/16/24 20:35 Glucose 114 mg/dL (65-115) 10/16/24 20:35 Calculated Osmolality 301 mOsm/kg (285-295) H 10/16/24 20:35 Calcium 8.6 mg/dL (8.5-10.5) 10/16/24 20:35 Total Bilirubin 0.4 mg/dL (0.15-1.2) 10/16/24 20:35 AST 14 U/L (0-32) 10/16/24 20:35 ALT 15 U/L (0-33) 10/16/24 20:35 Alkaline Phosphatase 135 U/L (35-105) H 10/16/24 20:35 Troponin T Baseline 247 ng/L (0-10) H* 10/16/24 20:35 Troponin T 120 Minute 230.3 ng/L (0-10) H 10/16/24 22:54 Delta Troponin T -16.7 ABS# (0-10) L 10/16/24 22:54 Total Protein 7.4 g/dL (6.6-8.7) 10/16/24 20:35 Albumin 4.0 g/dL (3.5-5.2) 10/16/24 20:35 Globulin 3.4 g/dL (1.3-4.6) 10/16/24 20:35 All radiology interpretation(s) finalized by discharge EKG Data EKG 1: Interpretation: Normal sinus rhythm with a rate of 63, parable 191, QRS of 107, QTc of 467, no ST segment elevation or depression. EKG 2: Interpretation: Sinus rhythm with a rate of 62, parable 197, QRS duration of 109, QTc of 452, no ST segment elevation or depression Discharge Plan Discharge Patient Disposition: Home Clinical Impression: Chest pain Qualifiers: Chest pain type: intercostal pain Qualified Code(s): R07.82 - Intercostal pain Condition: Stable Prescriptions: No Action (DME) AFO brace See Rx Instructions .Route .MEDSUPPLY Qty: 1 0RF Rx Instructions: As directed to the shoe guys (DME) diabetic shoes with 3 inserts See Rx Instructions .Route .MEDSUPPLY Qty: 1 0RF Rx Instructions: As directed to the shoe guys (DME) Dexcom G6 Architecture Technician Misc See Rx Instructions .Route Qty: 1 0RF Rx Instructions: As directed (DME) Dexcom G6 Sensor Device See Rx Instructions .Route Qty: 3 0RF Rx Instructions: As directed (DME) Dexcom G6 Transmitter Device See Rx Instructions .Route Qty: 1 0RF Rx Instructions: As directed atorvastatin 40 mg tablet 40 mg PO BEDTIME 30 Days Qty: 30 0RF aspirin 81 mg tablet,delayed release (DR/EC) 81 mg PO QAM 30 Days Qty: 30 0RF insulin glargine [Lantus Solostar U-100 Insulin] 100 unit/mL (3 mL) Insulin Pen 5 unit SUBCUT QPM insulin aspart U-100 [Novolog FlexPen U-100 Insulin] 100 unit/mL (3 mL) insulin pen 5 unit SUBCUT TID Qty: 15 0RF Rx Instructions: sliding scale losartan 50 mg Tablet 100 mg PO DAILY Qty: 60 0RF amlodipine 5 mg Tablet 5 mg PO DAILY Qty: 30 0RF bumetanide 1 mg tablet See Rx Instructions .ROUTE .COMPLEX Qty: 60 0RF Rx Instructions: TAKE 1 TABLET BY MOUTH twice DAILY ON NON-DIALYSIS DAYS sevelamer carbonate 800 mg Tablet 800 mg PO TID Qty: 90 0RF clonidine HCl 0.1 mg tablet See Rx Instructions .ROUTE .COMPLEX PRN (Reason: Blood Pressure) Rx Instructions: TAKE 1 TABLET IF SYSTOLIC BLOOD PRESSURE IS GREATER THAN 160, REPEAT ONCE IF SYSTOLIC BLOOD PRESSURE IS STILL OVER 160 AFTER 1 HOUR. gabapentin 100 mg Capsule 100 mg PO TID clopidogrel 75 mg tablet 75 mg PO DAILY carvedilol 3.125 mg tablet 3.125 mg PO BID escitalopram oxalate 10 mg tablet 10 mg PO DAILY Discharge Orders: Discharge ED (Routine); Ordered 10/16/24 Ordered By: Pramod Law Referrals: Elizabeth Dougherty FNP [Primary Care Provider] - Discharge Diet: Advance as tolerated Discharge Activity: Resume usual activity Patient Instructions: Opioid Safety, Pain Management Activity Restrictions/Additional Instructions: Please return to the emergency department with any new or worsening symptoms. Please follow with your primary care physician for any persistent symptoms. Print Language: Hungarian Coding Level of Care Code ED Hand Ornament Maker for Reji Chandler
[2024-10-16 21:00] VITALS: BP 148/88; PULSE 67; RESP 16; O2SAT 97
[2024-10-16 21:02] LABS: Alanine Aminotransferase 15 U/L (0-33); Alkaline Phosphatase 135 U/L (35-105); Aspartate Amino Transferase 14 U/L (0-32); Chloride 99 mmol/L (98-107); Potassium 4.4 mmol/L (3.5-5.1); Sodium 142 mmol/L (136-145)
[2024-10-16 21:17] LABS: Troponin(5th) Baseline 247 ng/L (0-10)
[2024-10-16 21:26] LABS: Anion Gap 18.4 (5-19); Blood Urea Nitrogen 30 mg/dL (6-20); Calcium 8.6 mg/dL (8.5-10.5); Carbon Dioxide 29 mmol/L (22-29); Creatinine Clr Calc Pharmacy 12.9512; Globulin 3.4 g/dL (1.3-4.6); Glomerular Filtration Rate 9.9 mL/min (90-130); Glucose 114 mg/dL (65-115); Osmolality Calculated 301 mOsm/kg (285-295); Total Bilirubin 0.4 mg/dL (0.15-1.2); Total Protein 7.4 g/dL (6.6-8.7)
--- NOTE | 2024-10-16 21:50 | ECG_ITS ---
[employer] Test Date: 2024-10-16 Pat Name: Donita Aguilar Department: Room: Gender: Female Strategic Planning Analyst: : 1985 Requested By: Dawna Nick Order Number: [id number] Faviola MD: JOSEFA TALLEY Measurements Intervals [place] Rate: 62 P: 49 DC: 197 QRS: 1 QRSD: 109 T: 52 QT: 446 QTc: 456 Interpretive Statements SINUS RHYTHM POSSIBLE LEFT ATRIAL ENLARGEMENT [-0.1mV P-WAVE IN V1/V2] NONSPECIFIC T-WAVE ABNORMALITY Compared to ECG 10/16/2024 19:42:36 T-wave abnormality now present Prolonged QT interval no longer present Electronically Signed On 10-19-2024 21:01:30 CDT by JOSEFA TALLEY [email or web address]
[2024-10-16 21:56] VITALS: BP 151/87; PULSE 63; RESP 16; O2SAT 93
[2024-10-16 22:32] VITALS: BP 145/85; PULSE 62; RESP 18; O2SAT 95
[2024-10-16 23:29] LABS: Troponin 5 2HR 230.3 ng/L (0-10); Troponin 5 2HR Delta -16.7 ABS# (0-10)
[2024-10-16 23:30] VITALS: BP 161/79; PULSE 65; RESP 16; O2SAT 95
[2024-10-17 00:18] VITALS: RESP 16; O2SAT 96
[2024-10-17] MEDS: morphine 4 mg/mL SDV 1 mL 2 MG IM (00:18)
[2024-10-17 00:28] VITALS: BP 161/78; PULSE 62; RESP 18; O2SAT 97
== END 2024-10-17 00:29 | disposition home or self-care (01) ==
PROVIDERS: Emergency Medicine; Emergency Provider General Practice; PCP Nurse Practitioner Family
DX: R07.82 Intercostal pain (principal); Z79.82 Long term (current) use of aspirin; Z79.4 Long term (current) use of insulin; Z79.02 Long term (current) use of antithrombotics/antiplatelets; Z87.891 Personal history of nicotine dependence; J44.9 Chronic obstructive pulmonary disease, unspecified; E11.22 Type 2 diabetes mellitus with diabetic chronic kidney disease; I13.2 Hypertensive heart and chronic kidney disease with heart failure and with stage 5 chronic kidney disease, or end stage renal disease; I50.9 Heart failure, unspecified; N18.6 End stage renal disease
CPT/HCPCS: 36415; 71045; 80053; 84484; 85025; 93005; 96372; 99285; J2270

== ENCOUNTER 2024-10-22 16:03 | Emergency (ER) | payer MEDICARE, MEDICAID, SELFPAY ==
[2024-10-22 16:10] VITALS: BP 156/73; PULSE 63; RESP 18; TEMP 36.8; O2SAT 99
--- NOTE | 2024-10-22 16:27 | XRR_ITS ---
PROCEDURE INFORMATION: Exam: XR Chest Exam date and time: 10/22/2024 4:27 PM Age: 39 years old Clinical indication: Device placement; Other: Malfunctioning tunneled dialysis port TECHNIQUE: Imaging protocol: Radiologic exam of the chest. Views: 1 view. COMPARISON: CR (CHEST, ) 10/16/2024 8:24 PM FINDINGS: Tubes, catheters and devices: Interval removal of the right chest tunneled dialysis port. Lungs: Faint right lung interstitial haziness, unchanged. Pleural spaces: Mild blunting of the left costophrenic angle, unchanged. Heart/Mediastinum: Unremarkable. No cardiomegaly. Bones/joints: Unremarkable. XR/XR chest 1V portable [id number] IMPRESSION: 1. Interval removal of the right chest tunneled dialysis port. Negative for pneumothorax. 2. Faint right lung interstitial haziness, unchanged.
[2024-10-22 17:00] LABS: Basophils % 0.7 %; Eosinophils # 0.3 10^3/uL (0.0-0.8); Eosinophils % 6.2 %; Hematocrit 32.7 % (36-47); Lymphocytes # 1.3 10^3/uL (0.8-4.8); Mean Corpuscular HGB Conc 32.4 g/dL (30-55); Mean Corpuscular Hemoglobin 31.2 pg (27-33); Mean Corpuscular Volume 96.2 fl (85-98); Mean Platelet Volume 10.4 fL (7.4-10.4); Monocytes # 0.5 10^3/uL (0.2-0.9); Monocytes % 10.4 %; Neutrophils # 2.47 10^3/uL (1.8-7.7); Neutrophils % 54.5 %; Nucleated Red Blood Cells % 0 %; Platelet Count 122 10^3/cmm (157-399); Red Cell Distribution Width 15.7 % (12.1-15.1); White Blood Count 4.53 10^3/uL (3.29-11.43)
[2024-10-22 17:13] LABS: INR 0.95 (0.8-1.2)
[2024-10-22 17:14] LABS: Partial Thromboplastin Time 30.9 SECONDS (23.9-36.7)
[2024-10-22 17:18] LABS: Alanine Aminotransferase 25 U/L (0-33); Albumin Level 3.9 g/dL (3.5-5.2); Alkaline Phosphatase 147 U/L (35-105); Anion Gap 13.9 (5-19); Aspartate Amino Transferase 20 U/L (0-32); Blood Urea Nitrogen 11 mg/dL (6-20); Calcium 8.8 mg/dL (8.5-10.5); Carbon Dioxide 31 mmol/L (22-29); Chloride 98 mmol/L (98-107); Creatinine Clr Calc Pharmacy 25.3844; Globulin 3.7 g/dL (1.3-4.6); Glomerular Filtration Rate 21.6 mL/min (90-130); Glucose 213 mg/dL (65-115); Osmolality Calculated 294 mOsm/kg (285-295); Potassium 3.9 mmol/L (3.5-5.1); Sodium 139 mmol/L (136-145); Total Bilirubin 0.4 mg/dL (0.15-1.2); Total Protein 7.6 g/dL (6.6-8.7)
[2024-10-22 17:48] VITALS: RESP 18; O2SAT 99
[2024-10-22] MEDS: ondansetron 2 mg/ML SDV 2 mL 4 MG IVP (17:48)
[2024-10-22] MEDS: morphine 4 mg/mL SDV 1 mL IVP (17:48)
--- NOTE | 2024-10-22 17:48 | W.ED.GENADLT ---
HPI - General Adult General: Chief complaint: General Medical Stated complaint: dialysis came out-bleeding Time Seen by Provider: 10/22/24 16:23 History of Present Illness: 39-year-old female with history of end-stage renal disease has a tunneled dialysis cath in the right subclavicular space incidentally pulled out today and it came out completely she had completed her dialysis earlier in the day she is due to have the next round of dialysis in 48 hours. Associated symptoms: Deny chest pain, dyspnea or rash Related Data Home Medications ?Medication ?Instructions ?Recorded ?Confirmed clonidine HCl 0.1 mg tablet See Rx Instructions .Route 11/27/23 10/07/24 .COMPLEX PRN Blood Pressure gabapentin 100 mg capsule 100 mg PO TID 12/27/23 10/07/24 insulin glargine 100 unit/mL (3 5 unit SUBCUT QPM 04/06/24 10/07/24 mL) subcutaneous pen (Lantus Solostar U-100 Insulin) clopidogrel 75 mg tablet 75 mg PO DAILY 04/28/24 10/07/24 carvedilol 3.125 mg tablet 3.125 mg PO BID 09/05/24 10/07/24 escitalopram oxalate 10 mg tablet 10 mg PO DAILY 09/07/24 10/07/24 Previous Rx's ?Medication ?Instructions ?Recorded blood-glucose meter,continuous #1 ea 06/12/22 (Dexcom G6 Manager Of Investigations) blood-glucose sensor (Dexcom G6 #3 ea 06/12/22 Sensor device) blood-glucose transmitter (Dexcom #1 ea 06/12/22 G6 Transmitter device) sevelamer carbonate 800 mg tablet 800 mg PO TID #90 tabs 09/16/23 aspirin 81 mg tablet,delayed 81 mg PO QAM 30 days #30 tabs 03/28/24 release atorvastatin 40 mg tablet 40 mg PO BEDTIME 30 days #30 tabs 03/28/24 insulin aspart U-100 100 unit/mL 5 unit (0.05 mL) SUBCUT TID #15 mL 04/11/24 (3 mL) subcutaneous pen (Novolog FlexPen U-100 Insulin aspart) AFO brace #1 ea 04/20/24 diabetic shoes with 3 inserts #1 ea 04/20/24 amlodipine 5 mg tablet 5 mg PO DAILY #30 tabs 09/30/24 bumetanide 1 mg tablet See Rx Instructions .Route 09/30/24 .COMPLEX #60 tabs losartan 50 mg tablet 100 mg (2 x 50 mg) PO DAILY #60 09/30/24 tabs Allergies Allergy/AdvReac Type Severity Reaction Status Date / Time acetaminophen AdvReac Mild ADR-Gastrointestinal Verified 10/16/24 19:47 Upset Review of Systems Const: Denies: fever(s) or chills Card: Denies: chest pain Resp: Denies: dyspnea GI: Denies: abdominal pain : Denies: dysuria, urinary frequency or urinary urgency Musc: Denies: neck pain or back pain Skin/Breast: Denies: rash PFSH ED PFSH: Medical History Headache Accelerated hypertension Uncontrolled type 1 diabetes mellitus ESRD (end stage renal disease) Dialysis complication Hypoglycemia Hemodialysis catheter dysfunction Hyperkalemia Colitis End stage renal disease on dialysis COPD (chronic obstructive pulmonary disease) Diabetes mellitus Transaminitis Intractable nausea and vomiting Hyperlipidemia HTN (hypertension) CHF (congestive heart failure), NYHA class III Pulmonary hypertension CAD (coronary artery disease) Neurogenic bladder COVID-19 Tobacco dependence Drug abuse Anemia Community acquired pneumonia Esophagitis Long-term insulin use History of pancreatitis Celiac disease Recurrent UTI Non-alcoholic fatty liver disease Arnold-Chiari malformation Diabetic gastroparesis -continue Reglan Diabetic neuropathy associated with type 1 diabetes mellitus Headache, common migraine, intractable, with status migrainosus Pleural effusion 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 History of lung surgery -s/p LLL lobectomy secondary to cavitary pneumonia (2017) History of endoscopy History of cholecystectomy Family History Grandfather Diabetes Mother CAD (coronary artery disease) Diabetes Heart disease Hypertension Brother Acute lymphoblastic leukemia (ALL) in child Grandmother Thyroid disease Denies family history of Colon cancer Ovarian cancer Prostate cancer Hyperlipidemia Breast cancer Uterine cancer Stroke Social History (Reviewed 10/23/24 @ 10:23 by JOSH Hanson Smoking and tobacco/nicotine status: former use of tobacco/nicotine Quit status (tobacco/nicotine): has quit using Former quit date comment: She previously smoked <1/2 PPD, quit July 2023. Second hand smoke exposure: Yes Alcohol intake: never Substance/Drug Use: current Household members: children Housing: House Marital status: Single Current occupational status: unemployed Physical Exam Const: COMMON NORMALS: no acute distress GENERAL APPEARANCE: cooperative ORIENTATION/CONSCIOUSNESS: Yes awake, Yes oriented to person, Yes oriented to place and Yes oriented to time HENMT: COMMON NORMALS: normocephalic, atraumatic and hearing grossly normal bilaterally HEAD & SCALP: normocephalic and atraumatic Chest: OTHER: Wound on the chest from the tunneled dialysis catheter shows no active bleeding no swelling with compression and no expressed blood. Resp: COMMON NORMALS: normal respiratory effort, No retractions, No use of accessory muscles and clear to auscultation bilaterally AUSCULTATION: clear to auscultation bilaterally Cardio: COMMON NORMALS: regular rate, regular rhythm and No murmurs present (Cardio) RATE: regular rate RHYTHM: regular rhythm GI: COMMON NORMALS: Soft to palpation and No hepatosplenomegaly present AUSCULTATION: Yes normoactive bowel sounds PALPATION: Yes Soft to palpation, No Tenderness to palpation present (GI), No Guarding due to palpation present (GI) and Yes No hepatosplenomegaly present Extremity: COMMON NORMALS: normal to inspection, capillary refill normal, no clubbing, cyanosis or edema, no calf tenderness and no pedal edema Neuro: SENSORIUM/ORIENTATION: Yes oriented to person, Yes oriented to place and Yes oriented to time Skin: COMMON NORMALS: no rashes or lesions noted GENERAL SKIN EXAM: no rashes or lesions noted Course Vital Signs: Vital signs: Vital Signs Temperature 98.3 F 10/22/24 16:10 Pulse Rate 76 10/22/24 18:38 Respiratory Rate 18 10/22/24 17:48 Blood Pressure 137/86 10/22/24 18:38 Pulse Oximetry 98 10/22/24 18:38 Oxygen Delivery Me thod Room Air 10/22/24 16:10 [facility] - General Adult Medical Decision Making Initially we began making plans to replace the tunneled dialysis catheter however patient reports that her graft is patent and they actually have began using it. They had planned to remove the catheter in 4 months but evidently the graft is already to the point where it is usable and has been being used. Given that there is no need to replace the tunneled dialysis catheter. If implant difficulty develops of the graft it can be replaced at that time. Laboratory test reviewed no significant abnormality patient's not showing any signs of active bleeding we will discharge home follow-up with her regular dialysis as planned Medical Records I reviewed the patient's medical records. Lab Data I reviewed the patient's lab results. 10/22/24 16:48 10/22/24 16:48 Radiology Impressions Chest X-Ray 10/22/24 16:27 IMPRESSION: 1. Interval removal of the right chest tunneled dialysis port. Negative for pneumothorax. 2. Faint right lung interstitial haziness, unchanged. Laboratory Results WBC 4.53 10^3/uL (3.29-11.43) 10/22/24 16:48 RBC 3.40 10^6/uL (3.85-5.65) L 10/22/24 16:48 Hgb 10.60 g/dL (11.27-16.99) L 10/22/24 16:48 Hct 32.7 % (36-47) L 10/22/24 16:48 MCV 96.2 fl (85-98) 10/22/24 16:48 MCH 31.2 pg (27-33) 10/22/24 16:48 MCHC 32.4 g/dL (30-55) 10/22/24 16:48 RDW 15.7 % (12.1-15.1) H 10/22/24 16:48 Plt Count 122 10^3/cmm (157-399) L 10/22/24 16:48 MPV 10.4 fL (7.4-10.4) 10/22/24 16:48 Neut % (Auto) 54.5 % 10/22/24 16:48 Lymph % (Auto) 28.0 % 10/22/24 16:48 [place] % (Auto) 10.4 % 10/22/24 16:48 Eos % (Auto) 6.2 % 10/22/24 16:48 Baso % (Auto) 0.7 % 10/22/24 16:48 Neut # (Auto) 2.47 10^3/uL (1.8-7.7) 10/22/24 16:48 Lymph # (Auto) 1.3 10^3/uL (0.8-4.8) 10/22/24 16:48 [place] # (Auto) 0.5 10^3/uL (0.2-0.9) 10/22/24 16:48 Eos # (Auto) 0.3 10^3/uL (0.0-0.8) 10/22/24 16:48 Baso # (Auto) 0.0 10^3/uL (0.0-0.1) 10/22/24 16:48 Nucleated RBC % (auto) 0 % 10/22/24 16:48 Nucleated RBCs # 0.0 /100WBC 10/22/24 16:48 PT 13.30 SECONDS (12.1-14.9) 10/22/24 16:48 INR 0.95 (0.8-1.2) 10/22/24 16:48 APTT 30.9 SECONDS (23.9-36.7) 10/22/24 16:48 Sodium 139 mmol/L (136-145) 10/22/24 16:48 Potassium 3.9 mmol/L (3.5-5.1) 10/22/24 16:48 Chloride 98 mmol/L (98-107) 10/22/24 16:48 Carbon Dioxide 31 mmol/L (22-29) H 10/22/24 16:48 Anion Gap 13.9 (5-19) 10/22/24 16:48 BUN 11 mg/dL (6-20) 10/22/24 16:48 Creatinine 2.5 mg/dL (0.5-0.9) H 10/22/24 16:48 GFR Calculation 21.6 mL/min (90-130) L 10/22/24 16:48 Glucose 213 mg/dL (65-115) H 10/22/24 16:48 Calculated Osmolality 294 mOsm/kg (285-295) 10/22/24 16:48 Calcium 8.8 mg/dL (8.5-10.5) 10/22/24 16:48 Total Bilirubin 0.4 mg/dL (0.15-1.2) 10/22/24 16:48 AST 20 U/L (0-32) 10/22/24 16:48 ALT 25 U/L (0-33) 10/22/24 16:48 Alkaline Phosphatase 147 U/L (35-105) H 10/22/24 16:48 Total Protein 7.6 g/dL (6.6-8.7) 10/22/24 16:48 Albumin 3.9 g/dL (3.5-5.2) 10/22/24 16:48 Globulin 3.7 g/dL (1.3-4.6) 10/22/24 16:48 All radiology interpretation(s) finalized by discharge Discharge Plan Discharge Patient Disposition: Home Clinical Impression: Complication of vascular dialysis catheter Condition: Stable Prescriptions: No Action (DME) AFO brace See Rx Instructions .Route .MEDSUPPLY Qty: 1 0RF Rx Instructions: As directed to the shoe guys ([facility]) diabetic shoes with 3 inserts See Rx Instructions .Route .MEDSUPPLY Qty: 1 0RF Rx Instructions: As directed to the shoe guys ([facility]) Dexcom G6 Manager Of Investigations Misc See Rx Instructions .Route Qty: 1 0RF Rx Instructions: As directed (DME) Dexcom G6 Sensor Device See Rx Instructions .Route Qty: 3 0RF Rx Instructions: As directed ([facility]) Dexcom G6 Transmitter Device See Rx Instructions .Route Qty: 1 0RF Rx Instructions: As directed atorvastatin 40 mg tablet 40 mg PO BEDTIME 30 Days Qty: 30 0RF aspirin 81 mg tablet,delayed release (DR/EC) 81 mg PO QAM 30 Days Qty: 30 0RF insulin glargine [Lantus Solostar U-100 Insulin] 100 unit/mL (3 mL) Insulin Pen 5 unit SUBCUT QPM insulin aspart U-100 [Novolog FlexPen U-100 Insulin] 100 unit/mL (3 mL) insulin pen 5 unit SUBCUT TID Qty: 15 0RF Rx Instructions: sliding scale losartan 50 mg Tablet 100 mg PO DAILY Qty: 60 0RF amlodipine 5 mg Tablet 5 mg PO DAILY Qty: 30 0RF bumetanide 1 mg tablet See Rx Instructions .ROUTE .COMPLEX Qty: 60 0RF Rx Instructions: TAKE 1 TABLET BY MOUTH twice DAILY ON NON-DIALYSIS DAYS sevelamer carbonate 800 mg Tablet 800 mg PO TID Qty: 90 0RF clonidine HCl 0.1 mg tablet See Rx Instructions .ROUTE .COMPLEX PRN (Reason: Blood Pressure) Rx Instructions: TAKE 1 TABLET IF SYSTOLIC BLOOD PRESSURE IS GREATER THAN 160, REPEAT ONCE IF SYSTOLIC BLOOD PRESSURE IS STILL OVER 160 AFTER 1 HOUR. gabapentin 100 mg Capsule 100 mg PO TID clopidogrel 75 mg tablet 75 mg PO DAILY carvedilol 3.125 mg tablet 3.125 mg PO BID escitalopram oxalate 10 mg tablet 10 mg PO DAILY Discharge Orders: Discharge ED (Routine); Ordered 10/22/24 Ordered By: Shravan Jones Referrals: Elizabeth Dougherty FNP [Primary Care Provider, Unknown] Patient Instructions: Opioid Safety, Pain Management Activity Restrictions/Additional Instructions: Thank you for choosing [facility] for your healthcare needs today. It is very important that you follow up as instructed or that you return to the Emergency Department should you have concerns or if your condition changes or worsens in any way. You were seen today after your accidentally removing your dialysis catheter. Print Language: Turkish Coding Level of Care Code ED Contact Centre Supervisor for Reji Chandler
--- NOTE | 2024-10-22 17:48 | PC.NURSE ---
pt c/o chest pain to L side with mild radiation to center of chest, pt denies this feeling similar to previous chest pain.
[2024-10-22 18:38] VITALS: BP 137/86; PULSE 76; O2SAT 98
== END 2024-10-22 18:39 | disposition home or self-care (01) ==
PROVIDERS: Emergency Provider Family Medicine; PCP Nurse Practitioner Family
DX: T82.49XA Other complication of vascular dialysis catheter, initial encounter (principal); Z79.02 Long term (current) use of antithrombotics/antiplatelets; Z87.891 Personal history of nicotine dependence; E10.22 Type 1 diabetes mellitus with diabetic chronic kidney disease; I13.2 Hypertensive heart and chronic kidney disease with heart failure and with stage 5 chronic kidney disease, or end stage renal disease; I50.9 Heart failure, unspecified; N18.6 End stage renal disease; Z99.2 Dependence on renal dialysis; E78.5 Hyperlipidemia, unspecified; I25.10 Atherosclerotic heart disease of native coronary artery without angina pectoris; X58.XXXA Exposure to other specified factors, initial encounter
CPT/HCPCS: 36415; 71045; 80053; 85025; 85610; 85730; 87040; 96374; 96375; 99284; J2270; J2405

== ENCOUNTER 2024-11-01 21:21 | Emergency (ER) | payer MEDICARE, MEDICAID, SELFPAY ==
--- NOTE | 2024-11-01 21:22 | ECG_ITS ---
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 Measurements Intervals [place] Rate: 71 P: 59 CA: 189 QRS: -9 QRSD: 104 T: 3 QT: 433 QTc: 472 Interpretive Statements SINUS RHYTHM POSSIBLE LEFT ATRIAL ENLARGEMENT [-0.1mV P-WAVE IN V1/V2] POSSIBLE ANTERIOR MYOCARDIAL INFARCTION , OF INDETERMINATE AGE [30 ms Q WAVE IN V3/V4, OR R < 0.2 mV IN V4] INFERIOR MYOCARDIAL INFARCTION , PROBABLY OLD [40+ ms Q WAVE AND/OR ST/T ABNORMALITY IN II/aVF] Compared to ECG 10/16/2024 21:50:07 Myocardial infarct finding now present T-wave abnormality no longer present Electronically Signed On 11-02-2024 15:07:33 CDT by Gilberto Eugene M.D. [email or web address]
--- NOTE | 2024-11-01 21:22 | XRR_ITS ---
PROCEDURE INFORMATION: Exam: XR Chest Exam date and time: 11/01/2024 9:49 PM Age: 39 years old Clinical indication: Chest pressure; Chest pain TECHNIQUE: Imaging protocol: Radiologic exam of the chest. Views: 1 view. COMPARISON: CR XR chest 1V portable [id number] 10/22/2024 4:27 PM FINDINGS: Lungs: Minimal atelectasis left lung base. No consolidation. Pleural spaces: Unremarkable. No pleural effusion. No pneumothorax. Heart/Mediastinum: Unremarkable. No cardiomegaly. Bones/joints: Unremarkable. XR/XR chest 1V portable [id number] IMPRESSION: No acute findings.
[2024-11-01 21:23] VITALS: BP 155/85; PULSE 72; TEMP 36.9; O2SAT 97; BMI 27.3
[2024-11-01 22:06] LABS: Basophils % 0.6 %; Eosinophils # 0.3 10^3/uL (0.0-0.8); Eosinophils % 6.4 %; Lymphocytes # 1.3 10^3/uL (0.8-4.8); Lymphocytes % 25.3 %; Mean Corpuscular Hemoglobin 30.7 pg (27-33); Monocytes # 0.4 10^3/uL (0.2-0.9); Monocytes % 8.2 %; Neutrophils # 3.04 10^3/uL (1.8-7.7); Neutrophils % 59.3 %; Nucleated Red Blood Cells % 0 %; Platelet Count 153 10^3/cmm (157-399); Red Blood Count 2.93 10^6/uL (3.85-5.65); Red Cell Distribution Width 14.6 % (12.1-15.1); White Blood Count 5.13 10^3/uL (3.29-11.43)
[2024-11-01 22:18] LABS: INR 0.97 (0.8-1.2)
[2024-11-01 22:26] LABS: Troponin(5th) Baseline 274 ng/L (0-10)
[2024-11-01 22:28] LABS: Alanine Aminotransferase 25 U/L (0-33); Albumin Level 3.6 g/dL (3.5-5.2); Alkaline Phosphatase 150 U/L (35-105); Anion Gap 17.6 (5-19); Aspartate Amino Transferase 18 U/L (0-32); Blood Urea Nitrogen 26 mg/dL (6-20); Calcium 8.7 mg/dL (8.5-10.5); Carbon Dioxide 26 mmol/L (22-29); Chloride 102 mmol/L (98-107); Globulin 3.8 g/dL (1.3-4.6); Glomerular Filtration Rate 10.2 mL/min (90-130); Glucose 165 mg/dL (65-115); Lipase 17 U/L (13-60); Osmolality Calculated 300 mOsm/kg (285-295); Potassium 4.6 mmol/L (3.5-5.1); Sodium 141 mmol/L (136-145); Total Bilirubin 0.3 mg/dL (0.15-1.2); Total Protein 7.4 g/dL (6.6-8.7)
--- NOTE | 2024-11-01 23:22 | ECG_ITS ---
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 Measurements Intervals [place] Rate: 64 P: 62 SC: 188 QRS: 3 QRSD: 105 T: -2 QT: 432 QTc: 449 Interpretive Statements SINUS RHYTHM POSSIBLE LEFT ATRIAL ENLARGEMENT [-0.1mV P-WAVE IN V1/V2] POSSIBLE ANTERIOR MYOCARDIAL INFARCTION , OF INDETERMINATE AGE [30 ms Q WAVE IN V3/V4, OR R < 0.2 mV IN V4] Compared to ECG 11/01/2024 21:28:20 No significant changes Electronically Signed On 11-02-2024 15:20:38 CDT by Gilberto Eugene M.D. [email or web address]
[2024-11-01 23:54] VITALS: BP 148/79; PULSE 64; RESP 18; O2SAT 99
[2024-11-02 00:22] LABS: Troponin 5 2HR 263.3 ng/L (0-10); Troponin 5 2HR Delta -10.7 ABS# (0-10)
[2024-11-02 00:30] VITALS: BP 133/86; PULSE 90; RESP 16; O2SAT 100
--- NOTE | 2024-11-02 01:56 | W.ED.CHESTPA ---
HPI - Chest Pain General: Chief Complaint: Chest Pain Stated Complaint: Chest Pains Time Seen by Provider: 11/02/24 00:28 History of Present Illness: 39-year-old female well-known to the emergency department service. She has end-stage renal disease as well as a history of coronary disease. She presents with chest discomfort. It is worse with movement and deep breathing. It started around 8 PM last night. Pain is significant. Some mild shortness of breath associated with it. No vomiting. She has had similar pains before. Related Data Home Medications ?Medication ?Instructions ?Recorded ?Confirmed clonidine HCl 0.1 mg tablet See Rx Instructions .Route 11/27/23 10/07/24 .COMPLEX PRN Blood Pressure gabapentin 100 mg capsule 100 mg PO TID 12/27/23 10/07/24 insulin glargine 100 unit/mL (3 5 unit SUBCUT QPM 04/06/24 10/07/24 mL) subcutaneous pen (Lantus Solostar U-100 Insulin) clopidogrel 75 mg tablet 75 mg PO DAILY 04/28/24 10/07/24 carvedilol 3.125 mg tablet 3.125 mg PO BID 09/05/24 10/07/24 escitalopram oxalate 10 mg tablet 10 mg PO DAILY 09/07/24 10/07/24 Previous Rx's ?Medication ?Instructions ?Recorded blood-glucose meter,continuous #1 ea 06/12/22 (Dexcom G6 Accountant Manager) blood-glucose sensor (Dexcom G6 #3 ea 06/12/22 Sensor device) blood-glucose transmitter (Dexcom #1 ea 06/12/22 G6 Transmitter device) sevelamer carbonate 800 mg tablet 800 mg PO TID #90 tabs 09/16/23 aspirin 81 mg tablet,delayed 81 mg PO QAM 30 days #30 tabs 03/28/24 release atorvastatin 40 mg tablet 40 mg PO BEDTIME 30 days #30 tabs 03/28/24 insulin aspart U-100 100 unit/mL 5 unit (0.05 mL) SUBCUT TID #15 mL 04/11/24 (3 mL) subcutaneous pen (Novolog FlexPen U-100 Insulin aspart) AFO brace #1 ea 04/20/24 diabetic shoes with 3 inserts #1 ea 04/20/24 amlodipine 5 mg tablet 5 mg PO DAILY #30 tabs 04/09/25 bumetanide 1 mg tablet See Rx Instructions .Route 09/30/24 .COMPLEX #60 tabs losartan 50 mg tablet 100 mg (2 x 50 mg) PO DAILY #60 09/30/24 tabs Allergies Allergy/AdvReac Type Severity Reaction Status Date / Time acetaminophen AdvReac Mild ADR-Gastrointestinal Verified 11/01/24 21:32 Upset PFS ED PFSH: Medical History Headache Accelerated hypertension Uncontrolled type 1 diabetes mellitus ESRD (end stage renal disease) Dialysis complication Hypoglycemia Hemodialysis catheter dysfunction Hyperkalemia Colitis End stage renal disease on dialysis COPD (chronic obstructive pulmonary disease) Diabetes mellitus Transaminitis Intractable nausea and vomiting Hyperlipidemia HTN (hypertension) CHF (congestive heart failure), NYHA class III Pulmonary hypertension CAD (coronary artery disease) Neurogenic bladder COVID-19 Tobacco dependence Drug abuse Anemia Community acquired pneumonia Esophagitis Long-term insulin use History of pancreatitis Celiac disease Recurrent UTI Non-alcoholic fatty liver disease Arnold-Chiari malformation Diabetic gastroparesis -continue Reglan Diabetic neuropathy associated with type 1 diabetes mellitus Headache, common migraine, intractable, with status migrainosus Pleural effusion 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 History of lung surgery -s/p LLL lobectomy secondary to cavitary pneumonia (2017) History of endoscopy History of cholecystectomy Family History Grandfather Diabetes Mother CAD (coronary artery disease) Diabetes Heart disease Hypertension Brother Acute lymphoblastic leukemia (ALL) in child Grandmother Thyroid disease Denies family history of Colon cancer Ovarian cancer Prostate cancer Hyperlipidemia Breast cancer Uterine cancer Stroke Social History Smoking and tobacco/nicotine status: former use of tobacco/nicotine Quit status (tobacco/nicotine): has quit using Former quit date comment: She previously smoked <1/2 PPD, quit July 2023. Second hand smoke exposure: Yes Alcohol intake: never Substance/Drug Use: current Household members: children Housing: House Marital status: Single Current occupational status: unemployed Physical Exam Const: COMMON NORMALS: no acute distress GENERAL APPEARANCE: cooperative; not ill appearing and not frail appearing HENMT: COMMON NORMALS: normocephalic, atraumatic and Normal external nose present HEAD & SCALP: normocephalic and atraumatic FACE & SINUS: normal facial exam and face symmetric NOSE: Normal external nose present Eye: COMMON NORMALS: Equal, round and reactive pupils present and EOMs intact bilaterally PUPIL: Yes Equal, round and reactive pupils present Neck/C-Spine: GENERAL: Yes trachea midline Chest: CHEST: Yes Symmetrical chest wall rise Resp: COMMON NORMALS: normal respiratory effort, No retractions, No use of accessory muscles and clear to auscultation bilaterally AUSCULTATION: clear to auscultation bilaterally Cardio: COMMON NORMALS: regular rate and regular rhythm RATE: regular rate RHYTHM: regular rhythm GI: COMMON NORMALS: Normal to inspection, nondistended, normoactive bowel sounds present Extremity: COMMON NORMALS: no pedal edema Neuro: JEET COMA SCALE: document GCS findings Granger coma scale eye opening: Spontaneous [place]anger coma scale verbal response: Orientated Jeet coma scale motor response: Obey commands Jeet coma scale total score: 15 SENSORY EXAM: Yes extremities (intact) Psych: COMMON NORMALS: speech normal SPEECH: Yes normal speech Skin: COMMON NORMALS: no rashes or lesions noted GENERAL SKIN EXAM: no rashes or lesions noted Course Vital Signs: Vital signs: Vital Signs Temperature 98.5 F 11/01/24 21:23 Pulse Rate 70 11/02/24 02:25 Respiratory Rate 16 11/02/24 02:25 Blood Pressure 148/88 11/02/24 02:25 Pulse Oximetry 97 11/02/24 02:25 Oxygen Delivery Me thod Room Air 11/02/24 00:30 MDM - Chest Pain Medical Decision Making Pain at least somewhat reproducible on palpation of the chest wall. Her creatinine is 4.8. Hemoglobin is 9. Other laboratory is not remarkable. She is due for dialysis tomorrow. Her chest x-ray is nonacute. She was given pain medication, antiemetic. Return for new or worsening symptoms. Follow-up this week. Lab Data 11/01/24 21:58 11/01/24 21:58 Radiology Impressions Chest X-Ray 11/01/24 21:22 IMPRESSION: No acute findings. Laboratory Results WBC 5.13 10^3/uL (3.29-11.43) 11/01/24 21:58 RBC 2.93 10^6/uL (3.85-5.65) L 11/01/24 21:58 Hgb 9.00 g/dL (11.27-16.99) L 11/01/24 21:58 Hct 29.0 % (36-47) L 11/01/24 21:58 MCV 99.0 fl (85-98) H 11/01/24 21:58 MCH 30.7 pg (27-33) 11/01/24 21:58 MCHC 31.0 g/dL (30-55) 11/01/24 21:58 RDW 14.6 % (12.1-15.1) 11/01/24 21:58 Plt Count 153 10^3/cmm (157-399) L 11/01/24 21:58 MPV 10.0 fL (7.4-10.4) 11/01/24 21:58 Neut % (Auto) 59.3 % 11/01/24 21:58 Lymph % (Auto) 25.3 % 11/01/24 21:58 Cannon % (Auto) 8.2 % 11/01/24 21:58 Eos % (Auto) 6.4 % 11/01/24 21:58 Baso % (Auto) 0.6 % 11/01/24 21:58 Neut # (Auto) 3.04 10^3/uL (1.8-7.7) 11/01/24 21:58 Lymph # (Auto) 1.3 10^3/uL (0.8-4.8) 11/01/24 21:58 Cannon # (Auto) 0.4 10^3/uL (0.2-0.9) 11/01/24 21:58 Eos # (Auto) 0.3 10^3/uL (0.0-0.8) 11/01/24 21:58 Baso # (Auto) 0.0 10^3/uL (0.0-0.1) 11/01/24 21:58 Nucleated RBC % (auto) 0 % 11/01/24 21:58 Nucleated RBCs # 0.0 /100WBC 11/01/24 21:58 PT 13.60 SECONDS (12.1-14.9) 11/01/24 21:58 INR 0.97 (0.8-1.2) 11/01/24 21:58 Sodium 141 mmol/L (136-145) 11/01/24 21:58 Potassium 4.6 mmol/L (3.5-5.1) 11/01/24 21:58 Chloride 102 mmol/L (98-107) 11/01/24 21:58 Carbon Dioxide 26 mmol/L (22-29) 11/01/24 21:58 Anion Gap 17.6 (5-19) 11/01/24 21:58 BUN 26 mg/dL (6-20) H 11/01/24 21:58 Creatinine 4.8 mg/dL (0.5-0.9) H 11/01/24 21:58 GFR Calculation 10.2 mL/min (90-130) L 11/01/24 21:58 Glucose 165 mg/dL (65-115) H 11/01/24 21:58 Calculated Osmolality 300 mOsm/kg (285-295) H 11/01/24 21:58 Calcium 8.7 mg/dL (8.5-10.5) 11/01/24 21:58 Total Bilirubin 0.3 mg/dL (0.15-1.2) 11/01/24 21:58 AST 18 U/L (0-32) 11/01/24 21:58 ALT 25 U/L (0-33) 11/01/24 21:58 Alkaline Phosphatase 150 U/L (35-105) H 11/01/24 21:58 Troponin T Baseline 274 ng/L (0-10) H* 11/01/24 21:58 Troponin T 120 Minute 263.3 ng/L (0-10) H 11/01/24 23:50 Delta Troponin T -10.7 ABS# (0-10) L 11/01/24 23:50 Total Protein 7.4 g/dL (6.6-8.7) 11/01/24 21:58 Albumin 3.6 g/dL (3.5-5.2) 11/01/24 21:58 Globulin 3.8 g/dL (1.3-4.6) 11/01/24 21:58 Lipase 17 U/L (13-60) 11/01/24 21:58 All radiology interpretation(s) finalized by discharge Discharge Plan Discharge Patient Disposition: Home Clinical Impression: CAD (coronary artery disease), Chest pain Condition: Stable Prescriptions: No Action (DME) AFO brace See Rx Instructions .Route .MEDSUPPLY Qty: 1 0RF Rx Instructions: As directed to the shoe guys ([facility] [place] diabetic shoes with 3 inserts See Rx Instructions .Route .MEDSUPPLY Qty: 1 0RF Rx Instructions: As directed to the shoe guys ([facility] [place]) Dexcom G6 Accountant Manager Misc See Rx Instructions .Route Qty: 1 0RF Rx Instructions: As directed ([facility] [place]) Dexcom G6 Sensor Device See Rx Instructions .Route Qty: 3 0RF Rx Instructions: As directed ([facility] [place]) Dexcom G6 Transmitter Device See Rx Instructions .Route Qty: 1 0RF Rx Instructions: As directed atorvastatin 40 mg tablet 40 mg PO BEDTIME 30 Days Qty: 30 0RF aspirin 81 mg tablet,delayed release (DR/EC) 81 mg PO QAM 30 Days Qty: 30 0RF insulin glargine [Lantus Solostar U-100 Insulin] 100 unit/mL (3 mL) Insulin Pen 5 unit SUBCUT QPM insulin aspart U-100 [Novolog FlexPen U-100 Insulin] 100 unit/mL (3 mL) insulin pen 5 unit SUBCUT TID Qty: 15 0RF Rx Instructions: sliding scale losartan 50 mg Tablet 100 mg PO DAILY Qty: 60 0RF amlodipine 5 mg Tablet 5 mg PO DAILY Qty: 30 0RF bumetanide 1 mg tablet See Rx Instructions .ROUTE .COMPLEX Qty: 60 0RF Rx Instructions: TAKE 1 TABLET BY MOUTH twice DAILY ON NON-DIALYSIS DAYS sevelamer carbonate 800 mg Tablet 800 mg PO TID Qty: 90 0RF clonidine HCl 0.1 mg tablet See Rx Instructions .ROUTE .COMPLEX PRN (Reason: Blood Pressure) Rx Instructions: TAKE 1 TABLET IF SYSTOLIC BLOOD PRESSURE IS GREATER THAN 160, REPEAT ONCE IF SYSTOLIC BLOOD PRESSURE IS STILL OVER 160 AFTER 1 HOUR. gabapentin 100 mg Capsule 100 mg PO TID clopidogrel 75 mg tablet 75 mg PO DAILY carvedilol 3.125 mg tablet 3.125 mg PO BID escitalopram oxalate 10 mg tablet 10 mg PO DAILY Discharge Orders: Discharge ED (Routine); Ordered 11/02/24 Ordered By: Jak Larose Referrals: Elizabeth Dougherty, MEDIA INTERN [Primary Care Provider, Unknown] - 1-3 days Patient Instructions: Chest Pain (ED), Opioid Safety, Pain Management Activity Restrictions/Additional Instructions: EKG, chest x-ray, and laboratory workup did not reveal a concerning cause of your chest discomfort this morning. You are given medications to help with pain. Follow-up with your doctor if pain continues, return for worsening pain or any other new or concerning symptoms. Further outpatient testing may be needed. Print Language: German Coding Level of Care Code ED Dope Mixer for Reji Chandler
[2024-11-02 02:08] VITALS: RESP 18
[2024-11-02] MEDS: morphine 4 mg/mL SDV 1 mL IM (02:08)
[2024-11-02] MEDS: ondansetron 4 MG Tablet PO (02:09)
[2024-11-02] MEDS: lidocaine 2% viscous 15 ML, aluminum-mag hydrox-simethicon 30 ML, sucralfate oral liq 1 GM PO (02:09)
[2024-11-02 02:25] VITALS: BP 148/88; PULSE 70; RESP 16; O2SAT 97
== END 2024-11-02 02:27 | disposition home or self-care (01) ==
PROVIDERS: Emergency Medicine; Emergency Provider Emergency Medicine; PCP Nurse Practitioner Family
DX: I25.10 Atherosclerotic heart disease of native coronary artery without angina pectoris (principal); R07.9 Chest pain, unspecified; Z79.82 Long term (current) use of aspirin; Z79.02 Long term (current) use of antithrombotics/antiplatelets; Z87.891 Personal history of nicotine dependence; E78.5 Hyperlipidemia, unspecified; E10.22 Type 1 diabetes mellitus with diabetic chronic kidney disease; I13.2 Hypertensive heart and chronic kidney disease with heart failure and with stage 5 chronic kidney disease, or end stage renal disease; I50.9 Heart failure, unspecified; N18.6 End stage renal disease; J44.9 Chronic obstructive pulmonary disease, unspecified
CPT/HCPCS: 36415; 71045; 80053; 83690; 84484; 85025; 85610; 93005; 96372; 99285; J2270; J9999; Q0162

== ENCOUNTER 2024-11-10 11:22 | Emergency (ER) | payer MEDICARE, MEDICAID, SELFPAY ==
[2024-11-10 11:47] VITALS: BP 160/76; PULSE 72; RESP 17; TEMP 36.7; O2SAT 99; BMI 27.3
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
[2024-11-10 13:13] VITALS: RESP 16
[2024-11-10] MEDS: morphine 4 mg/mL SDV 1 mL IM (13:13)
[2024-11-10 13:26] VITALS: BP 175/84; PULSE 65; RESP 16; O2SAT 98
[2024-11-10 14:02] VITALS: BP 164/81; PULSE 64; O2SAT 96
== END 2024-11-10 14:03 | disposition home or self-care (01) ==
PROVIDERS: Emergency Provider Physician Assistant; PCP Nurse Practitioner Family
DX: S13.9XXA Sprain of joints and ligaments of unspecified parts of neck, initial encounter (principal); V89.2XXA Person injured in unspecified motor-vehicle accident, traffic, initial encounter; Z79.82 Long term (current) use of aspirin; Z79.4 Long term (current) use of insulin; Z79.02 Long term (current) use of antithrombotics/antiplatelets; Z87.891 Personal history of nicotine dependence; J44.9 Chronic obstructive pulmonary disease, unspecified; I25.10 Atherosclerotic heart disease of native coronary artery without angina pectoris; E10.22 Type 1 diabetes mellitus with diabetic chronic kidney disease; I13.2 Hypertensive heart and chronic kidney disease with heart failure and with stage 5 chronic kidney disease, or end stage renal disease; I50.9 Heart failure, unspecified; N18.6 End stage renal disease
CPT/HCPCS: 72040; 96372; 99284; J2270

== ENCOUNTER → 2024-11-12 14:27 | Outpatient (BNVA) | payer MEDICARE, MEDICAID, SELFPAY | PROVIDERS: PCP Nurse Practitioner Family; Visit Provider Podiatrist Foot & Ankle Surgery | DX: E10.65 Type 1 diabetes mellitus with hyperglycemia (principal); L60.3 Nail dystrophy; M79.89 Other specified soft tissue disorders; N18.6 End stage renal disease; Z99.2 Dependence on renal dialysis; G62.9 Polyneuropathy, unspecified; Z79.4 Long term (current) use of insulin; Z89.421 Acquired absence of other right toe(s) | CPT/HCPCS: 11721; 99214 ==

== ENCOUNTER 2024-12-25 22:13 | Inpatient (IN) | payer MEDICARE, MEDICAID, SELFPAY ==
--- NOTE | 2024-12-25 22:19 | ECG_ITS ---
[employer] Test Date: 2024-12-25 Pat Name: Donita Aguilar Department: Room: Gender: Female Occupational Therapy Director: : 1985 Requested By: Geovanny Womack Order Number: [id number] Reading MD: Measurements Intervals [place] Rate: 71 P: 20 MO: 180 QRS: -14 QRSD: 101 T: 39 QT: 427 QTc: 466 Interpretive Statements SINUS RHYTHM INFERIOR MYOCARDIAL INFARCTION , PROBABLY OLD [40+ ms Q WAVE AND/OR ST/T ABNORMALITY IN II/aVF] Compared to ECG 11/01/2024 23:52:54 No significant changes [email or web address]
[2024-12-25 22:21] VITALS: BP 94/58; PULSE 72; RESP 18; TEMP 36.6; O2SAT 97
--- OUTSIDE RECORDS SUMMARY | 2024-12-25 22:23 | XMS_ITS | Encounter Summary ---
Author Organization [facility] Address [address] [place] [address] Care Team Providers Care Copy Machine Operator Name Role Phone Shravan Jones DO Primary Care Provider [phone] Encounter Details Date Type Department Care Team (Late st Contact Info) Description 01/07/2017 Lab Requisition [facility] [address] [place] [address] Izabela Diamond MD NO ADDRESS ON FILE Social History Tobacco Use Types Packs/Day Years Used Date Smoking Tobacco: Every Day Cigarettes Comments:pt lethargic Comments Unknown Sex and Gender Information Value Date Recorded Sex Assigned at Not on file 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 Gender Identity Not on file Sexual Orientation Not on file documented as of this encounter Plan of Treatment Not on file documented as of this encounter Procedures Procedure Name Priority Date/Time Associated Diagnosis Comments CBC WITH DIFFERENTIAL Routine 01/07/2017 2:23 AM CDT C-REACTIVE PROTEIN Routine 01/07/2017 2: 23 AM CDT PREALBUMIN Routine 01/07/2017 2:23 AM CDT BASIC METABOLIC PANEL Routine 01/07/2017 2:23 AM CDT documented in this encounter Results * PREALBUMIN (01/07/2017 2:23 AM CDT) PREALBUMIN 26 20 - 40 mg/dL 01/07/2017 5:27 AM CDT [facility] Blood 01/07/2017 2:23 AM CDT 01/07/2017 5:01 AM CDT Izabela Diamond MD CHEMISTRY ORDERABLES Final Res ult Performing Organization Address City/[facility]/ZIP Co de Phone Number [facility] CLIA# [id number] [address] [place] [id number] * (ABNORMAL) C-REACTIVE PROTEIN (01/07/2017 2:23 AM CDT) CRP 16.6(H) 0.0 - 2.9 mg/L 01/07/2017 5:27 AM CDT [facility] Blood 01/07/2017 2:23 AM CDT 01/07/2017 5:01 AM CDT Izabela Diamond MD CHEMISTRY ORDERABLES Final Res ult Performing Organization Address [facility] Co de Phone Number [facility] CLIA# [id number] [address] [place] [id number] * (ABNORMAL) BASIC METABOLIC PANEL (01/07/2017 2:23 AM CDT) SODIUM 139 136 - 145 mmol/L 01/07/2017 5:27 AM CDT [facility] [employer] [facility] POTASSIUM 4.1 3.5 - 5.1 mmol/L 01/07/2017 5:27 AM CDT [facility] [employer] [facility] CHLORIDE 104 98 - 107 mmol/L 01/07/2017 5:27 AM CDT [facility] [employer] [facility] CO2 26 21 - 32 mmol/L 01/07/2017 5:27 AM CDT [facility] [employer] [facility] CALCIUM 9.1 8.4 - 10.1 mg/dL 01/07/2017 5:27 AM CDT [facility] [employer] [facility] BUN 14 7 - 17 mg/dL 01/07/2017 5:27 AM CDT [facility] CREATININE 0.82 0.55 - 1.02 mg/dL 01/07/2017 5:27 AM T [facility] GLUCOSE 274(H) 74 - 106 mg/dL 01/07/2017 5:27 AM T [facility] GFR >60 >=60 mL/min/1.7 3 sq meter 01/07/2017 5:27 AM T [facility] Comment: eGFR has not been validated for use in the elderly (> 70 years of age), women, patients with serious co-morbid conditions, or persons with extremes of body size or muscle mass and should also be interpreted with caution in patients with acute kidney failure, dialysis dependent patients, patients reporting exceptional dietary intake (e.g. vegetarian diet, high protein diets, creatine supplementation), and patients with severe liver disease. Based on National Kidney Disease Education Program If patient is , please refer to the GFR result. GFR, >60 >=60 mL/min/1.7 3 sq meter 01/07/2017 5:27 AM T [facility] ANION GAP 9 4 - 30 mmol/L 01/07/2017 5:27 AM [facility] Blood 01/07/2017 2:23 AM CDT 01/07/2017 5:01 AM CDT us Izabela Diamond MD CHEMISTRY ORDERABLES Final Res ult [facility] CLIA# [id number] [address] [place] [address] * (ABNORMAL) CBC WITH DIFFERENTIAL (01/07/2017 2:23 AM CDT) WBC 9.3 4.5 - 11.0 K/uL 01/07/2017 5:27 AM CDT [facility] RBC 4.19(L) 4.20 - 5.40 M/uL 01/07/2017 5:27 AM CDT [facility] HEMOGLOBIN 10.3(L) 12.0 - 16.0 g/dL 01/07/2017 5:27 AM [facility] HEMATOCRIT 33.2(L) 36.0 - 46.0 % 01/07/2017 5:27 AM [facility] MCV 79.2(L) 84.0 - 103.0 fL 01/07/2017 5:27 AM [facility] MCH 24.6(L) 27.0 - 34.0 pg 01/07/2017 5:27 AM [facility] MCHC 31.0 30.0 - 35.0 g/dL 01/07/2017 5:27 AM [facility] RDW 17.2(H) 11.0 - 14.5 % 01/07/2017 5:27 AM [facility] RDW-STDEV 49.4 37.0 - 54.0 fL 01/07/2017 5:27 AM [facility] PLATELETS 545(H) 140 - 440 K/uL 01/07/2017 5:27 AM [facility] MPV 10.2 8.9 - 12.8 fL 01/07/2017 5:27 AM [facility] NEUTROPHILS 53 42 - 75 % 01/07/2017 5:27 AM [facility] LYMPHOCYTES 26 24 - 44 % 01/07/2017 5:27 AM [facility] MONOCYTES 9 2 - 10 % 01/07/2017 5:27 AM [facility] EOSINOPHILS 11(H) 0 - 7 % 01/07/2017 5:27 AM [facility] BASOPHILS 1 0 - 1 % 01/07/2017 5:27 AM [facility] IMMATURE GRANULOCYTES 0 0 - 2 % 01/07/2017 5:27 AM [facility] NEUTROPHIL ABSOLUTE 4.88 2.00 - 8.00 K/uL 01/07/2017 5:27 AM [facility] LYMPHOCYTE ABSOLUTE 2.45 1.20 - 4.00 K/uL 01/07/2017 5:27 AM [facility] MONOCYTE ABSOLUTE 0.79(H) 0.10 - 0.60 K/uL 01/07/2017 5:27 AM CDT [facility] EOSINOPHIL ABSOLUTE 1.01(H) 0.00 - 0.70 K/uL 01/07/2017 5:27 AM CDT [facility] BASOPHILS ABSOLUTE 0.11 0.00 - 0.20 K/uL 01/07/2017 5:27 AM CDT [facility] IMMATURE GRANULOCYTES ABSOLUTE 0.04 0.00 - 0.10 K/uL 01/07/2017 5:27 AM CDT [facility] Blood 01/07/2017 2:23 AM CDT 01/07/2017 5:01 AM CDT us Izabela Diamond MD HEMATOLOGY ORDERABLES Final Re sult [facility] CLIA# [id number] [address] [place] [address] documented in this encounter Visit Diagnoses Not on filedocumented in this encounter Care Teams Copy Machine Operator Relationship Specialty Start Date End Date Shravan Jones DO [address] [address] PCP - General Family Practice 12/04/16 documented as of this encounter
--- OUTSIDE RECORDS SUMMARY | 2024-12-25 22:23 | XMS_ITS | Encounter Summary ---
Author Organization [facility] Address [address] [place] [address] Care Team Providers Care Career Professional Name Role Phone Shravan Jones DO Primary Care Provider [phone]- [phone] Encounter Details Date Type Department Care Team (Latest Contact Info) Description 05/14/2003 [facility] [place] [address] Jimmy Tineo, CLIVES NO ADDRESS ON FILE UNSPEC DENTAL CARIES (Primary Dx); TOOTH POSITION ANOMALY Social History Tobacco Use Types Packs/Day Years Used Date Smoking Tobacco: Never Assessed Comments Unknown Sex and Gender Information Value Date Recorded Sex Assigned at Not on file 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
--- OUTSIDE RECORDS SUMMARY | 2024-12-25 22:23 | XMS_ITS | Data Portability ---
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 MOUTH EVERY 12 HOURS NEEDED FOR PAIN 12/23 completed Not Available Not Available Not Available isosorbid e mononitra te ER 60 mg tablet,ex tended release 24 hr TAKE 2 TABLETS BY MOUTH ONCE DAILY FOR 30 DAYS 05/01 completed Not Available Not Available Not Available amoxicill in 875 mg tablet TAKE 1 TABLET BY MOUTH EVERY 12 HOURS FOR 7 DAYS 10/05 completed Not Available Not Available Not Available prednisol one acetate 1 % eye drops,georgette pension INSTILL 1 DROP INTO RIGHT EYE 4 TIMES DAILY FOR 7 DAYS THEN USE THREE TIMES DAILY FOR 7 DAYS THEN USE TWICE DAILY FOR 7 DAYS THEN ONCE DAILY FOR 7 DAYS THEN STOP 09/16 completed Not Available Not Available Not Available nifedipin e ER 60 mg tablet,ex tended release 24 hr TAKE 1 TABLET BY MOUTH ONCE DAILY 10/05 completed Not Available Not Available Not Available amlodipin e 10 mg tablet TAKE 1 TABLET BY MOUTH ONCE DAILY FOR 30 DAYS 04/01 completed Not Available Not Available Not Available benzonata te 100 mg capsule TAKE 1 CAPSULE BY MOUTH EVERY 8 HOURS NEEDED FOR COUGH 10/09 completed Not Available Not Available Not Available lisinopri l 10 mg tablet TAKE 1 TABLET BY MOUTH ONCE DAILY 10/09 completed Not Available Not Available Not Available polymyxin B sulfate 10,000 unit-trim ethoprim 1 mg/mL eye drops INSTILL 1 DROP INTO RIGHT EYE 4 TIMES DAILY FOR 7 DAYS 09/16 completed Not Available Not Available Not Available nitroglyc jessica 0.4 mg sublingua l tablet DISSOLVE ONE TABLET UNDER THE TONGUE EVERY 5 MINUTES NEEDED FOR CHEST PAIN. DO NOT EXCEED A TOTAL OF 3 DOSES IN 15 MINUTES active Not Available Not Available No t Available gabapenti n 300 mg capsule TAKE 1 CAPSULE BY MOUTH THREE TIMES DAILY active Not Available Not Available No t Available bumetanid e 1 mg tablet TAKE 1 TABLET BY MOUTH ONCE DAILY ON NON-DIAL YSIS DAYS active Not Available Not Available No t Available dorzolami de 22.3 mg-timolo l 6.8 mg/mL eye drops INSTILL 1 DROP INTO RIGHT EYE TWICE DAILY 10/05 completed Not Available Not Available Not Available hydroxyzi ne HCl 25 mg tablet TAKE 1 TABLET BY MOUTH TWICE DAILY NEEDED FOR ANXIETY 10/09 completed Not Available Not Available Not Available hydralazi ne 50 mg tablet TAKE 1 TABLET BY MOUTH THREE TIMES DAILY 05/01 completed Not Available Not Available Not Available furosemid e 20 mg tablet TAKE 1 TABLET BY MOUTH ONCE DAILY 10/09 completed Not Available Not Available Not Available gabapenti n 100 mg capsule TAKE 1 CAPSULE BY MOUTH THREE TIMES DAILY 11/27 completed Not Available Not Available Not Available metoprolo l succinate ER 25 mg tablet,ex tended release 24 hr TAKE 1 TABLET BY MOUTH ONCE DAILY 10/09 completed Not Available Not Available Not Available ergocalci ferol (vitamin D2) 1,250 mcg (50,000 unit) capsule TAKE 1 CAPSULE BY MOUTH ONCE A WEEK 10/09 completed Not Available Not Available Not Available lisinopri l 40 mg tablet TAKE 1 TABLET BY MOUTH IN THE MORNING active Not Available Not Available No t Available cefdinir 300 mg capsule TAKE 1 CAPSULE BY MOUTH TWICE DAILY FOR 5 DAYS 07/01 completed Not Available Not Available Not Available metoclopr amide 10 mg tablet TAKE 1/2 (ONE-REAGAN F) TABLET BY MOUTH THREE TIMES DAILY NEEDED FOR NAUSEA AND VOMITING 10/09 completed Not Available Not Available Not Available amoxicill in 500 mg-potass ium clavulana te 125 mg tablet TAKE 1 TABLET BY MOUTH TWICE DAILY FOR 6 DAYS 10/09 completed Not Available Not Available Not Available Ventolin HFA 90 mcg/actua tion aerosol inhaler INHALE 2 PUFFS BY MOUTH EVERY 6 HOURS NEEDED FOR WHEEZING 10/09 completed Not Available Not Available Not Available oxycodone 5 mg tablet TAKE 1 TABLET BY MOUTH EVERY 8 HOURS NEEDED FOR PAIN 09/16 completed Not Available Not Available Not Available escitalop jasmin 10 mg tablet Take 1 tablet every day by oral route for 90 days. 10/05 completed Not Available Not Available Not Available escitalop jasmin 20 mg tablet TAKE 1 TABLET BY MOUTH ONCE DAILY FOR ANXIETY active Not Available Not Available No t Available Novolog FlexPen U-100 Insulin aspart 100 unit/mL (3 mL) subcutane ous INJECT 10 UNITS UNDER THE SKIN THREE TIMES DAILY WITH MEALS active Not Available Not Available No t Available metoprolo l tartrate 25 mg tablet TAKE 1/2 (ONE-REAGAN F) TABLET BY MOUTH TWICE DAILY 10/09 completed Not Available Not Available Not Available pregabali n 25 mg capsule TAKE 1 CAPSULE BY MOUTH ONCE DAILY 10/09 completed Not Available Not Available Not Available Vitamin D weekly 10/09 completed 0; Recorded 05/02/20 11:51AM by Ximena Keating CMT, Office Visit; Not Available Not Available Not Available Pen Needle 4-6 times per day 10/09 completed VO CH/jl; 78440; Recorded 05/14/20 19 10:02AM by Leydi Jessica RN (Authori zed through Shravan Jones DO), Office Visit; Refill Quantity : 200; Each; Not Available Not Available Not Available ranolazin e ER 500 mg tablet,ex tended release,1 2 hr TAKE 1 TABLET BY MOUTH TWICE DAILY 05/01 completed Not Available Not Available Not Available Lantus Solostar U-100 Insulin 100 unit/mL (3 mL) subcutane ous pen INJECT 5 UNITS SUB-Q EVERY DAY AT BEDTIME FOR 90 DAYS active Not Available Not Available No t Available sevelamer carbonate 800 mg tablet TAKE 1 TABLET BY MOUTH THREE TIMES A DAY WITH MEALS active Not Available Not Available No t Available Brilinta 90 mg tablet TAKE 1 TABLET BY MOUTH TWICE DAILY 04/01 completed Not Available Not Available Not Available OneTouch Verio test strips USE 1 STRIP TO CHECK GLUCOSE 4 TIMES DAILY, BEFORE MEALS AND NIGHTLY 10/09 completed Not Available Not Available Not Available Breo Ellipta 100 mcg-25 mcg/dose powder for inhalatio n Inhale 1 puff every day by inhalati on route. active Not Available Not Available No t Available Veltassa 8.4 gram oral powder packet 10/05 completed Not Available Not Available Not Available naloxone 4 mg/actuat ion nasal spray CALL 911. USE ONE FULL SPRAY IN ONE NOSTRIL ONE TIME. REPEAT EVERY 2-3 MINUTES NEEDED IF NO OR MINIMAL RESPONSE . 04/01 completed Not Available Not Available Not Available OneTouch Verio Flex Meter USE DIRECTED 10/09 completed Not Available Not Available Not Available TechLITE Pen Needle 31 gauge x 3/16 USE 1 4 TIMES DAILY BEFORE MEALS AND NIGHTLY 10/09 completed Not Available Not Available Not Available Dexcom G6 Sensor device USE DIRECTED . CHANGE EVERY 10 DAYS 04/01 completed Not Available Not Available Not Available Dexcom G6 Transmitt er device USE DIRECTED 04/01 completed Not Available Not Available Not Available OneTouch Delica Plus Lancet 30 gauge USE 1 LANCET TO CHECK GLUCOSE 4 TIMES DAILY, BEFORE MEALS AND NIGHTLY 10/09 completed Not Available Not Available Not Available Vitals Date Recorded Body height Body mass index (BMI) Body weight Oxygen saturation Oxygen saturation in Arterial blood by Pulse oximetry Heart rate Respiratory rate Systolic And Diastolic Provider Name and Address Organization Details Last Updated DateTime 5 152.4 cm 26 kg/m2 13866.7 9 g 98 % 98 % 74 /min 18 /min 168/92 mm[Hg] [facility] 5 14:36:55 Date Recorded Body height Body mass index (BMI) Body weight Oxygen saturation Oxygen saturation in Arterial blood by Pulse oximetry Heart rate Respiratory rate Systolic And Diastolic Provider Name and Address Organization Details Last Updated DateTime 5 152.4 cm 26.8 kg/m2 72668.1 5 g 99 % 99 % 64 /min 18 /min 144/90 mm[Hg] [facility] 5 09:43:53 Date Recorded Body height Body mass index (BMI) Body weight Heart rate Oxygen saturation Oxygen saturation in Arterial blood by Pulse oximetry Body temperature Systolic And Diastolic Provider Name and Address Organization Details Last Updated DateTime 5 152.4 cm 26.6 kg/m2 89144.5 6 g 62 /min 97 % 97 % 98.1 [degF] 150/80 mm[Hg] RISHABH [facility] 5 10:09:34 Date Recorded Body height Body mass index (BMI) Body weight Oxygen saturation Oxygen saturation in Arterial blood by Pulse oximetry Heart rate Respiratory rate Systolic And Diastolic Provider Name and Address Organization Details Last Updated DateTime 5 152.4 cm 25.8 kg/m2 42643.1 9 g 95 % 95 % 70 /min 18 /min 150/80 mm[Hg] [facility] 5 10:11:17 Date Recorded Body height Body mass index (BMI) Body weight Oxygen saturation Oxygen saturation in Arterial blood by Pulse oximetry Heart rate Respiratory rate Systolic And Diastolic Provider Name and Address Organization Details Last Updated DateTime 152.4 cm 23.4 kg/m2 27649.0 8 g 99 % 99 % 76 /min 18 /min 140/90 mm[Hg] XIMENA RISHABH [facility] 12:41:44 Social History Question Answer Notes LastModified by Jaree Details LastModified Time Tobacco Smoking Status Former Smoker Quit 07/2023 XIMENA RISHABH [facility] 12/24/2023 12:30:16 What Type Of Diet Are You Following? REGULAR Information not available 12/24/2023 Which Illicit Or Recreational Drugs Have You Used? Smokes Meth Information not available 10/10/2023 When Did You Quit Smoking? 1-5yearssin celastcigar ette Information not available 12/24/2023 What Was The Date Of Your Most Recent Tobacco Screening? 12/24/2023 Information not available 12/24/2023 What Is Your Current Pack Years? 20-29packye ars Information not available 12/24/2023 What Is Your Relationship Status? Single [email or web address] Information not available 12/24/2023 At What Age Did You Start Smoking Tobacco? 19 Information not available 12/24/2023 How Much Tobacco Do You Smoke? No Information not available 12/24/2023 How Many Years Have You Smoked Tobacco? 20 Information not available 12/24/2023 Sex: Unknown Functional Status Question Answer Note LastModified by Jaree Details LastModified Time Do you use any illicit or recreational drugs? Yes Quit Meth 07/2023 Information not available 12/24/2023 Do you or have you ever used any other forms of tobacco or nicotine? No Information not available 12/24/2023 What is your level of alcohol consumption? None [email or web address] Information not available 10/10/2023 Are you currently employed? No disabled [email or web address] Information not available 10/10/2023 Are you able to walk? YESASSIST [email or web address] Information not available 10/10/2023 Are you able to care for yourself? No Mother is her caregiver. [email or web address] Information not available 10/10/2023 Do you or have you ever used any nicotine-free cigarettes, vape, or chewing tobacco? No Information not available 12/24/2023 Mental Status None recorded. Family History Relationship Description Onset Age of this Age Resolved Age Notes LastModified by Organization Details LastModified Time Mother Myocardial infarction In her 50's [email or web address] Not available 12/29/2023 23:44:26 Mother Rheumatoid arthritis [email or web address] Not available 12/28 23:44:44 Brother Acute lymphoid leukemia [email or web address] Not available 10/18 18:24:23 Medical History Condition Response Coronary Artery Disease Y Lung Disease Y Depression Y COPD Y Anxiety Disorder Y High Cholesterol Y Headaches Y Kidney Disease Y Heart Problems Y Hospitalizations Y Diabetes Y Heart Disease Y Hypertension Y Gynecological HistoryNo gynecological history recorded. Obstetrics History GPAL:G 0 P 0 0 0 0 Immunizations Vaccine Type Date Status Note Provider Nam e and Address Organization Details Recorded Time pneumococcal polysaccharide PPV23 8 completed SUZANNE HEATON [address] [place] [address], [phone], [facility] 12/24/2023 12:51:09 Past Encounters Encounter ID Performer Location Encounter Start Date Encounter Closed Date Diagnosis/Indication Diagnosis SNOMED-CT Code Diagnosis ICD10 Code Diagnosis Note [id number] SUZANNE HEATON [facility] ([facility]) [address] [place] [address] 10/10/2023 11:29:12 10/10/2023 13:24:32 Uncontrolled type 1 diabetes mellitus 934845062 E10.[address] Ortega. End stage renal failure on dialysis 912050660 Z99.2 MWF dialysis. Multi vess el coronary artery disease 825128002 I25.10 Following with cardiology in [facility] Essential hypertension 63946185 I10 Coronary arteriosclerosis 04405599 I25.10 Follows with cardiology in [facility]. [id number] Matthew Packer DO [facility] ([facility]) [address] [place] [phone] 12/02/2023 12:01:39 12/02/2023 13:56:02 Dental abscess 121107130 K04.7 Will start patient on lower dose amoxicilli n due to her hemodialys is status. Counseled patient that it is imperative that she see and be evaluated by a dentist in the next 2 to 4 weeks. [id number] SUZANNE HEATON [facility] ([facility]) [address] [place] [phone] 12/24/2023 11:37:48 12/24/2023 14:35:44 Mixed anxiety and depressive disorder 228084013 F41.8 Essential hypertension 80997295 I10 Starting Nifedipine today. Type 1 mainor betes mellitus 18822853 E10.[address] Ortega. Pain in bi lateral legs 0302646662 4004107 M79.604 M79.605 Patient reports she took some of her mom's in the past and it was helpful. End stage renal failure on dialysis 748017927 Z99.2 MWF dialysis. [id number] SUZANNE HEATON [facility] ([facility]) [address] [place] [phone] 01/07/2024 15:11:38 01/07/2024 17:49:26 Edema 355354879 R60.9 Non-pittin g lower extremity. Chest pain 73273847 R07. 9 Recurrent. Following with cardiology . Abnormal b lood pressure 85838246 Z01.31 Will half dose of nifedipine until she is seen with cardiology . [id number] SUZANNE HEATON [facility] ([facility]) [address] [place] [id number] 02/21/2024 11:42:22 02/21/2024 12:51:01 End-stage renal disease 05328299 N18.6 Continue dialysis. Essential hypertension 78602369 I10 Blood pressure good today. Continue current meds. Uncontroll ed type 1 diabetes mellitus 246911265 E10.65 Continue to follow with Dr. Ortega. Mixed anxi ety and depressive disorder 161629491 F41.8 [id number] SUZANNE HEATON [facility] ([facility]) [address] [place] [phone] 04/01/2024 13:47:35 04/01/2024 15:21:12 Essential hypertension 28977849 I10 Monitor at home. Follow-up with cardiology . Uncontrol ed type 1 diabetes mellitus 744690864 E10.65 Continue to follow with Dr. Ortega. [facility] ion care management 785317161 Z30.9 Has a Nexplanon in her left arm, has not been changed for 12 years per patient Chronic low back pain 27 6210820 M54.50 Would like to see about prescripti on for Tramadol. 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 Congestive heart failure 67826307 I50.9 Follows with Cardiology . Chronic ob structive pulmonary disease 28405714 J44.9 Uses Breo. Secondary hyperaldosteronism 31942886 E26.1 Currently on dialysis. Angina pectoris 94403942 0 I20.9 Follows with cardiology , has nitrostat, recent stent. Amputated toe 811053300 Z89.429 Follows with podiatry. Chronic re current major depressive disorder 0938101 F33.1 Continue Lexapro. [id number] SUZANNE HEATON [facility] ([facility]) [address] [place] [id number] 05/01/2024 11:41:02 05/01/2024 13:20:39 Chronic chest pain 1115186677 94779 R07.9 Encouraged her mother to contact cardiology for follow-up. Essential hypertension 74440299 I10 Monitor at home. Restart Coreg. Abnormal vision 1817188 H54.7 [id number] SUZANNE HEATON [facility] ([facility]) [address] [place] [id number] 07/01/2024 13:56:52 07/01/2024 15:11:16 Essential hypertension 63510227 I10 Blood pressure this am was 125/80. Type 1 mainor betes mellitus 46482167 E10.[address] Ortega. Mixed anxi ety and depressive disorder 268657711 F41.8 Swelling of lower leg 44 5704405 R22.40 Hypoxemic respiratory failure 5175411288 4870778 J96.91 Uses oxygen at home as needed. 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 Depressive disorder 3548 9007 F33.1 Continue escitalopr am. 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 Congestive heart failure 93478221 I50.9 I50.30 Follows with Cardiology . Chronic ki dney disease stage 5 348208974 N18.5 Z99.2 Currently on dialysis. Amputated toe 187266049 Z89.429 Follows with podiatry. Low back pain 330226127 M54.50 Gabapentin . Hypertensi ve heart and renal disease with (congestive) heart failure 887109253 I13.2 Follows with Cardiology . Chronic ob structive pulmonary disease 80129030 J44.9 Uses Breo. Chronic ki dney disease due to type 2 diabetes mellitus 0400741062 08 N18.6 Currently on dialysis. [id number] SUZANNE HEATON [facility] ([facility]) [address] [place] [id number] 09/16/2024 09:15:48 09/16/2024 11:21:40 Coronary arteriosclerosis 38483187 I25.10 Recent stent placement. Anemia 205838584 D64.9 Acute supp urative otitis media without spontaneous rupture of ear drum 80421231 H66.001 Pain in bi lateral legs 6973173404 0234001 M79.604 M79.605 She has been taking 100mg three times daily but feels like it needs to be increased. [id number] SUZANNE HEATON [facility] ([facility]) [address] [place] [id number] 10/05/2024 10:02:53 10/05/2024 11:11:59 Coronary atherosclerosis 657831114 I25.10 She has 8 stents now. Mixed anxi ety and depressive disorder 814948930 F41.8 She has been having vivid dreams lately revolving around her brother who recently as well as her daughter who . Hospital i npatient stay within past 30 days 3665935638 106 Z76.89 [id number] SUZANNE HEATON [facility] ([facility]) [address] [place] [address] 11/27/2024 09:57:25 11/27/2024 10:57:38 Essential hypertension 87669263 I10 Blood pressure this am was 179/112 at home, in office is 150/80. Afternoon readings have been good. Type 1 mainor betes mellitus 15399591 E10.[address] Ortega. Pain in bi lateral legs 3923378717 4248836 M79.604 M79.605 Anxiety 61411820 F41.8 Unable to lay still for MRI. Will send in clonazepam to take prior to procedure. Health Concerns Section Related Observation LastModified by Organization Detai ls LastModified Time None Recorded Concern Status LastModified by Organization Details LastModified Time None Recorded Advance Directives Directive None Recorded Payers Insurance Date Sequence Insurance Name Policy Number Policy Varela Covered Member ID Varela Member ID Guarantor Name 12/07/2024 [place] [facility] (MEDICARE) Donita Aguilar [id number] Donita Agiular 12/07/2024 [place] [facility] (INSTITUTIONAL ) Donita Aguilar [id number] Donita Aguilar 12/07/2024 2 [place] Donita Aguilar [id number] Donita Aguilar 12/07/2024 1 [place] [facility] Donita Aguilar [id number] Donita Aguilar 12/07/2024 1 [facility] [place] - [place] [facility] Donita Aguilar [id number] Donita Aguilar Notes Date Note Type Note Provider Name and Address Organization Details Recorded Time 4 text/html Hypertension IM/FMReported bypatient.Quality:here for check-up Severity:stage 2 (>140/>90 mmHg) Duration:HTN present for years Associated Symptoms:fatigue;chest pain SUZANNE HEATON [address] [place] [address], [phone], [facility], [place] 05/06/2024 15:59:26 5 text/html Hypertension IM/FMReported bypatient.Quality:here for check-up Severity:stage 2 (>140/>90 mmHg) Duration:HTN present for years Alleviating Factors:medication Associated Symptoms:fatigue Risk Factorsmyocardial infarction; end-stage renal disease; diabetes [facility] [address] [place], [address], [facility], [place] 07/13/2024 15:14:21 5 text/html AnemiaReported bypatient.Quality:cannot identify Timing:betterNotes:Pt was having chest pain, shortness of breath, and weakness prior to hospitalization. Hgb was reportedly low in hospital, requiring 1 unit blood transfusion. Denies any symptoms since hospital discharge.Coronary Artery Disease F/UReported bypatient.Severity:sympt oms are improving; no chest discomfort with daily activities Context:non-smoker Treatment:adheres to lifestyle changes Associated Symptoms:no chest pain; no dyspnea with exertion; no diaphoresis; no nausea; no back pain; no jaw pain; no dizzinessEar Pain Brief HPIReported bypatient.Location:right Onset/Timing:started 2weeks ago; constant pain Duration:constant pain Quality:no itching; no discharge from the ears; no burning Severity:no fever; no interference with sleep Context:no recent trauma; no recent swimming; no dental problems; non-smoker Associated Symptoms:no vertigo; no jaw popping or clicking; no discharge from ear; no hearing loss; no dental pain; no jaw pain; no tinnitus;nasal discharge [facility], [facility] [address] [place], [address], [facility], [place] 09/16/2024 11:21:13 5 text/html Coronary Artery Disease F/UReported bypatient.Severity:sympt oms are improving; no chest discomfort with daily activities Context:non-smoker;uncon trolled hypertension Treatment:does not adhere to lifestyle changes Associated Symptoms:no chest pain; no dyspnea with exertion; no nausea; no jaw pain; no dizziness;neck pain at rest;diaphoresis;back pain at rest;back pain with exertion [facility] [address] [place], [address], [facility] [place], [place] 10/05/2024 10:57:13 text/html DiabetesReported bypatient.Duration:chron ic Control:treated with insulin; hemoglobin A1C has been 7-8 Compliance:compliant with medications; compliant with follow-up visits Self Care:monitoring glucoseHypertension IM/FMReported bypatient.Quality:here for check-up Severity:stage 2 (>140/>90 mmHg) Duration:HTN present for years Alleviating Factors:medication Associated Symptoms:fatigue Risk Factorsmyocardial infarction; end-stage renal disease; diabetes [facility] [address] [place], [address], [facility] [place] 11/27/2024 11:31:59 OBGyn Episode No OBEpisode recorded.
--- OUTSIDE RECORDS SUMMARY | 2024-12-25 22:23 | XMS_ITS | Encounter Summary ---
Author Organization [facility] Address [address] [place] [address] Care Team Providers Care Tipple Boss Name Role Phone Shravan Jones DO Primary Care Provider [phone] Encounter Details Date Type Department Care Team (Late st Contact Info) Description 01/02/2017 Lab Requisition [facility] Laboratory Services [address] [place] [address] Izabela Diamond MD NO ADDRESS ON FILE Social History Tobacco Use Types Packs/Day Years Used Date Smoking Tobacco: Every Day Cigarettes Comments:pt lethargic Comments Unknown Sex and Gender Information Value Date Recorded Sex Assigned at Not on file 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 [employer] [facility] POTASSIUM 4.3 3.5 - 5.1 mmol/L 01/02/2017 6:07 AM CDT [facility] CHLORIDE 101 98 - 107 mmol/L 01/02/2017 6:07 AM T [facility] CO2 27 21 - 32 mmol/L 01/02/2017 6:07 AM T [facility] CALCIUM 9.7 8.4 - 10.1 mg/dL 01/02/2017 6:07 AM T [facility] BUN 16 7 - 17 mg/dL 01/02/2017 6:07 AM [facility] CREATININE 0.87 0.55 - 1.02 mg/dL 01/02/2017 6:07 AM T [facility] GLUCOSE 122(H) 74 - 106 mg/dL 01/02/2017 6:07 AM [facility] GFR >60 >=60 mL/min/1.7 3 sq meter 01/02/2017 6:07 AM T [facility] Comment: eGFR has not been validated for [...] GFR, >60 >=60 mL/min/1.7 3 sq meter 01/02/2017 6:07 AM CDT [facility] ANION GAP 10 4 - 30 mmol/L 01/02/2017 6:07 AM T [facility] Blood 01/02/2017 3:00 AM CDT 01/02/2017 5:35 AM CDT us Izabela Diamond MD CHEMISTRY ORDERABLES Final Res ult [facility] CLIA# [id number] [address] [place] [address] * (ABNORMAL) CBC WITH DIFFERENTIAL (01/02/2017 3:00 AM CDT) [facility] WBC 10.4 4.5 - 11.0 K/uL 01/02/2017 5:44 AM [facility] RBC 4.30 4.20 - 5.40 M/uL 01/02/2017 5:44 AM [facility] HEMOGLOBIN 10.4(L) 12.0 - 16.0 g/dL 01/02/2017 5:44 AM [facility] HEMATOCRIT 34.5(L) 36.0 - 46.0 % 01/02/2017 5:44 AM [facility] MCV 80.2(L) 84.0 - 103.0 fL 01/02/2017 5:44 AM [facility] MCH 24.2(L) 27.0 - 34.0 pg 01/02/2017 5:44 AM [facility] MCHC 30.1 30.0 - 35.0 g/dL 01/02/2017 5:44 AM [facility] RDW 17.4(H) 11.0 - 14.5 % 01/02/2017 5:44 AM [facility] RDW-STDEV 51.1 37.0 - 54.0 fL 01/02/2017 5:44 AM [facility] PLATELETS 764(H) 140 - 440 K/uL 01/02/2017 5:44 AM [facility] MPV 9.2 8.9 - 12.8 fL 01/02/2017 5:44 AM [facility] NEUTROPHILS 56 42 - 75 % 01/02/2017 5:44 AM [facility] LYMPHOCYTES 27 24 - 44 % 01/02/2017 5:44 AM [facility] MONOCYTES 8 2 - 10 % 01/02/2017 5:44 AM [facility] EOSINOPHILS 7 0 - 7 % 01/02/2017 5:44 AM [facility] BASOPHILS 1 0 - 1 % 01/02/2017 5:44 AM [facility] IMMATURE GRANULOCYTES 1 0 - 2 % 01/02/2017 5:44 AM CDT [facility] NEUTROPHIL ABSOLUTE 5.79 2.00 - 8.00 K/uL 01/02/2017 5:44 AM CDT [facility] LYMPHOCYTE ABSOLUTE 2.78 1.20 - 4.00 K/uL 01/02/2017 5:44 AM CDT [facility] MONOCYTE ABSOLUTE 0.85(H) 0.10 - 0.60 K/uL 01/02/2017 5:44 AM CDT [facility] EOSINOPHIL ABSOLUTE 0.76(H) 0.00 - 0.70 K/uL 01/02/2017 5:44 AM CDT [facility] BASOPHILS ABSOLUTE 0.10 0.00 - 0.20 K/uL 01/02/2017 5:44 AM CDT [facility] IMMATURE GRANULOCYTES ABSOLUTE 0.09 0.00 - 0.10 K/uL 01/02/2017 5:44 AM CDT [facility] Blood 01/02/2017 3:00 AM CDT 01/02/2017 5:35 AM CDT us Izabela Diamond MD HEMATOLOGY ORDERABLES Final Re sult [facility] CLIA# [id number] [facility] [place] [address] documented in this encounter Visit Diagnoses Not on filedocumented in this encounter Care Teams Tipple Boss Relationship Specialty Start Date End Date Shravan Jones DO [address] [address] PCP - General Family Practice 12/04/16 documented as of this encounter
--- OUTSIDE RECORDS SUMMARY | 2024-12-25 22:23 | XMS_ITS | Clinical Summary ---
Author Organization [facility] Address [address] [place] [address] Phone Care Team Providers Care Hazardous Material Specialist Name Role Phone Shravan Jones DO Primary Care Provider Allergies No known active allergies Medications oxyCODONE-aceta minophen (PERCOCET) 7.5-325 mg Tablet Take 1 Tablet by mouth every 4 hours as needed for Pain. Max Daily Amount: 6 Tablets 25 Tablet 7 Active gabapentin (NEURONTIN) 300 mg capsule Take 1 Capsule (300 mg) by mouth every 8 hours. 7 Active Saccharomyces boulardii (FLORASTOR) 250 mg Capsule Take 1 Capsule (250 mg) by mouth 2 times daily. 7 Active bisacodyl (DULCOLAX) 10 mg Suppository Insert 1 Suppository (10 mg) by rectum 1 time daily as needed for Constipation. 7 Active bacitracin-poly myxin B (POLYSPORIN) 500-10,000 unit/gram Ointment Apply to affected area 2 times daily. 7 Active ascorbic acid, vitamin C, (VITAMIN C) 500 mg tablet Take 1 Tablet (500 mg) by mouth 3 times daily. 7 Active insulin lispro (HumaLOG) 100 units/mL injection glucose result was obtained greater than 30 minutes prior to insulin, recheck glucose prior to insulin. meal or when NPO CORRECTIONAL Dose, Medium-dose Regimen for Blood Sugars: Less than or equal to 140 = nonsulin 141 - 180 = give 2 unit 181 - 220 = give 5 unit 221 - 280 = give 8 unit If glucose greater than 250 tw. 3 mL 7 Active insulin glargine (LANTUS) 100 unit/mL pen syringe 20 units subcutaneous bid. 15 mL 7 Active sertraline (ZOLOFT) 50 mg tablet Take 50 mg by mouth daily. Active ferrous sulfate 325 mg (65 mg iron) tablet Take 325 mg by mouth daily. 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 Empyema lung 12/17/2016 Necrotizing pneumonia 12/17/2016 Methamphetamine use 12/16/2016 Tobacco use 12/09/2016 Cavitary pneumonia 12/06/2016 Erosive esophagitis 06/24/2016 Acute respiratory failure with hypoxia Type 2 diabetes mellitus wit hout complication, without long-term current use of insulin Resolved Problems Problem Noted Date Diagnosed Date Resolved Date Diabetes mellitus 12/16/2016 12/27/2016 Severe sepsis 12/20/2016 Blood poisoning 01/15/2017 Immunizations Immunization Administration Dates Next Due (M-M-R II/PRIORIX)(12 MO UP) MEASLES, MUMPS AND RUBELLA VIRUS VACCINE, 0.5 ML IM/SUBCUT 09/25/1990 (TDVAX)(7 YRS UP) TETANUS AN D DIPHTHERIA TOXOIDS, ADSORBED (2 LF OF TETANUS TOXOID AND 2 LF OF DIPHTHERIA TOXOID), 0.5ML (PF), IM 03/13/2000 Dt Dtp Dtap Vaccine 09/25/1990 HIB, Unspecified Formulation 09/25/1990 Hepatitis B Vaccine 03/13/2000,10/11/1999,1999 IPV/OPV 09/25/1990 Family History Medical History Relation Name Comments Cancer Brother Hypertension Mother Relation Name Status Comments Brother Mother Social History Tobacco Use Types Packs/Day Years Used Date Smoking Tobacco: Every Day Cigarettes Comments:pt lethargic Comments Unknown Sex and Gender Information Value Date Recorded Sex Assigned at Not on file 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 Gender Identity Not on file Sexual Orientation Not on file Last Filed Vital Signs Vital Sign Reading Time Taken Comments Blood Pressure 108/70 01/15/2017 2:47 PM CDT Pulse 68 01/15/2017 2:47 PM CDT Temperature 36.8 C (98.2 F) 01/15/2017 2:47 PM CDT Respiratory Rate 20 12/27/2016 7:30 PM CDT Oxygen Saturation 94% 12/27/2016 7:30 PM CDT Inhaled Oxygen Concentration - - Weight 54.4 kg (120 lb) 01/15/2017 2:47 PM CDT Height 152.4 cm (5') 01/15/2017 2:47 PM CDT Body Mass Index 23.44 01/15/2017 2:47 PM CDT Plan of Treatment Health Maintenance Due Date Last Done Comments DTAP/TDAP/TD VACCINES (3 - Tdap) 03/14/2000 03/13/2000, 09/25/1990 DIABETES ANNUAL FOOT EXAM 2004 DIABETES ANNUAL RETINAL EXAM 2004 DIABETES MICROALBUMIN ANNUAL SCREEN 2004 LDL CHOLESTEROL ANNUAL 2004 HPV/Cotest (21-29) 2007 CERVICAL CANCER SCREENING 2016 HPV/Cotest (30-65) 2016 PAP SMEAR 2016 DIABETES HBA1C Q 6 MONTHS 07/12/20172016, 12/05/2016 INFLUENZA VACCINE (#1) 2025 HEPATITIS B VACCINES Completed 03/13/2000, 10/11/1999, 09/06/1999 HPV VACCINES Aged Out No longer eligi ble based on patient's age to complete this topic Medical Devices Implanted Type Area Marketing Compliance Manager Device Identifier Shelf Expiration Date Model / Serial / Lot Max tracy [facility] [id number] - [id number] Implanted:Qty: 2 on 12/17/2016 by Deandre Alan MD at [facility] Biological Left: Lung CR BARD- [employer] 09/19/2019 [id number] / / [id number] Control Implant Funmi Procedures Procedure Name Priority Date/Time Associated Diagnosis Comments HEMOGLOBIN A1C Routine 01/09/2017 2:52 AM CDT from Last 3 Months or Most Recently Relevant to Health Maintenance Results * (ABNORMAL) HEMOGLOBIN A1C (01/09/2017 2:52 AM CDT) HEMOGLOBIN A1C 8.9(H) 4.0 - 6.0 % 01/09/2017 1:31 PM CDT [facility] Magnetic [facility] EST. AVG GLUCOSE, A1C 209 mg/dL 01/09/2017 1:31 PM CDT [facility] Blood 01/09/2017 2:52 AM CDT 01/09/2017 6:53 AM CDT Narrative [facility] - 01/09/2017 1:31 PM CDT Test performed on [employer] instrumentation using HPLC methodology us Izabela Diamond MD CHEMISTRY ORDERABLES Final Res ult [facility] CLIA# [id number] [address] [place] [address] from Last 3 Months or Most Recently Relevant to Health [place] [address] PENDING SALE TO [employer] MEDICA[employer] Advance Directives For more information, please contact: [phone] * Full Code (Latest Code Status on File) Date Activated Date Inactivated Comments 12/17/2016 1:05 PM 12/27/2016 11:32 PM Care Teams Hazardous Material Specialist Relationship Specialty Start Date End Date Shravan Jnoes DO [address] [address] PCP - General Family Practice 12/04/16
--- OUTSIDE RECORDS SUMMARY | 2024-12-25 22:23 | XMS_ITS | Encounter Summary ---
Author Organization [facility] Address [address] [place] [address] Care Team Providers Care Dance Critic Name Role Phone Shravan Jones DO Primary Care Provider Encounter Details Date Type Department Care Team (Late st Contact Info) Description 01/07/2017 Lab Requisition [facility] Laboratory [facility] [address] [place] [address] David Ortega MD [address] [place] [address] Social History Tobacco Use Types Packs/Day Years Used Date Smoking Tobacco: Every Day Cigarettes Comments:pt lethargic Comments Unknown Sex and Gender Information Value Date Recorded Sex Assigned at Not on file 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 DIFFICILE DETECTION Routine 01/07/2017 1:54 PM CDT documented in this encounter Results * CLOSTRIDIUM DIFFICILE TOXIN (01/07/2017 1:54 PM CDT) TOXIGENIC C DIFFICILE Not Detected Not Detected 01/07/2017 8:08 PM CDT [facility] [employer] Stool STOOL SPECIMEN / Unknown 01/07/2017 1:54 PM CDT 01/07/2017 6:53 PM CDT Narrative [facility] - 01/07/2017 8:08 PM CDT This assay is used to detect Toxigenic Clostridium difficile target(B gene) DNA sequences in unformed stool specimens. If toxigenic C. difficile is not detected, but clinical suspicion is high please consult ID for consultation and potential repeat testing. This test should not be used as a test of cure. us David Ortega MD MICROBIOLOGY - GENERAL ORDERAB LES Final Result [facility] [employer] [facility] CLIA# [id number] [address] [place] [address] documented in this encounter Visit Diagnoses Not on filedocumented in this encounter Care Teams Dance Critic Relationship Specialty Start Date End Date Shravan Jones DO [address] [address] PCP - General Family Practice 12/04/16 documented as of this encounter
--- OUTSIDE RECORDS SUMMARY | 2024-12-25 22:23 | XMS_ITS | Encounter Summary ---
Author Organization [facility] Address [address] [place] [address] Care Team Providers Care Ship Captain Name Role Phone Shravan Jones DO Primary Care Provider [phone]- [phone] Encounter Details Date Type Department Care Team (Late st Contact Info) Description 01/07/2017 Lab Requisition [facility] Laboratory Services [address] [place] [address] David Ortega MD [address] [place] [address] Social History Tobacco Use Types Packs/Day Years Used Date Smoking Tobacco: Every Day Cigarettes Comments:pt lethargic Comments Unknown Sex and Gender Information Value Date Recorded Sex Assigned at Not on file 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
--- OUTSIDE RECORDS SUMMARY | 2024-12-25 22:23 | XMS_ITS | Encounter Summary ---
Author Organization [facility] Address [address] [place] [address] Care Team Providers Care Research Physicist Name Role Phone Shravan Jones DO Primary Care Provider Encounter Details Date Type Department Care Team (Late st Contact Info) Description 01/09/2017 Lab Requisition [facility] Laboratory Services [facility] [address] [place] [address] Izabela Diamond MD NO ADDRESS ON FILE Social History Tobacco Use Types Packs/Day Years Used Date Smoking Tobacco: Every Day Cigarettes Comments:pt lethargic Comments Unknown Sex and Gender Information Value Date Recorded Sex Assigned at Not on file 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 Gender Identity Not on file Sexual Orientation Not on file documented as of this encounter Plan of Treatment Not on file documented as of this encounter Procedures Procedure Name Priority Date/Time Associated Diagnosis Comments CBC WITH DIFFERENTIAL Routine 01/09/2017 3:15 AM CDT MAGNESIUM LEVEL Routine 01/09/2017 3:15 AM CDT COMPREHENSIVE METABOLIC PANEL Routine 01/09/2017 3:15 AM CDT HEMOGLOBIN A1C Routine 01/09/2017 2:52 AM CDT documented in this encounter Results * (ABNORMAL) MAGNESIUM LEVEL (01/09/2017 3:15 AM CDT) MAGNESIUM 1.4(L) 1.6 - 2.6 mg/dL 01/09/2017 5:53 AM T [facility] Blood 01/09/2017 3:15 AM CDT 01/09/2017 5:12 AM CDT [facility] - 01/09/2017 5:53 AM CDT Due to Tractor Sweeper Operator update, MG+ reference range has changed from 1.8 - 2.4 mg/dL to the new reference range of 1.6 - 2.6 mg/dL. This will have limited patient impact. us Izabela Diamond MD CHEMISTRY ORDERABLES Final Res ult [facility] CLIA# [id number] [address] [place] [address] * (ABNORMAL) COMPREHENSIVE METABOLIC PANEL (01/09/2017 3:15 AM CDT) SODIUM 139 136 - 145 mmol/L 01/09/2017 5:53 AM CDT [facility] POTASSIUM 4.1 3.5 - 5.1 mmol/L 01/09/2017 5:53 AM T [facility] CHLORIDE 101 98 - 107 mmol/L 01/09/2017 5:53 AM T [facility] CO2 28 21 - 32 mmol/L 01/09/2017 5:53 AM T [facility] CALCIUM 8.8 8.4 - 10.1 mg/dL 01/09/2017 5:53 AM T [facility] BUN 18(H) 7 - 17 mg/dL 01/09/2017 5:53 AM T [facility] CREATININE 0.73 0.55 - 1.02 mg/dL 01/09/2017 5:53 AM T [facility] GLUCOSE 182(H) 74 - 106 mg/dL 01/09/2017 5:53 AM T [facility] TOTAL PROTEIN 8.4(H) 6.4 - 8.2 g/dL 01/09/2017 5:53 AM T [facility] ALBUMIN 2.5(L) 3.4 - 5.0 g/dL 01/09/2017 5:53 AM CDT [facility] BILIRUBIN TOTAL 0.2 0.2 - 1.0 mg/dL 01/09/2017 5:53 AM CDT [facility] ALKALINE PHOSPHATASE 99 25 - 100 U/L 01/09/2017 5:53 AM CDT [facility] AST 30 15 - 37 U/L 01/09/2017 5:53 AM CDT [facility] ALT 27 13 - 61 U/L 01/09/2017 5:53 AM CDT [facility] GFR >60 >=60 mL/min/1.7 3 sq meter 01/09/2017 5:53 AM T [facility] Comment: eGFR has not been validated for [...] GFR, >60 >=60 mL/min/1.7 3 sq meter 01/09/2017 5:53 AM CDT [facility] ANION GAP 10 4 - 30 mmol/L 01/09/2017 5:53 AM T [facility] Blood 01/09/2017 3:15 AM CDT 01/09/2017 5:12 AM CDT us Izabela Diamond MD CHEMISTRY ORDERABLES Final Res ult [facility] CLIA# [id number] [address] [place] [address] * (ABNORMAL) CBC WITH DIFFERENTIAL (01/09/2017 3:15 AM CDT) WBC 8.7 4.5 - 11.0 K/uL 01/09/2017 5:[address] [facility] RBC 4.63 4.20 - 5.40 M/uL 01/09/2017 5:[address] [facility] HEMOGLOBIN 11.3(L) 12.0 - 16.0 g/dL 01/09/2017 5:[address] [facility] HEMATOCRIT 36.8 36.0 - 46.0 % 01/09/2017 5:[address] [facility] MCV 79.5(L) 84.0 - 103.0 fL 01/09/2017 5:[address] [facility] MCH 24.4(L) 27.0 - 34.0 pg 01/09/2017 5:[address] [facility] MCHC 30.7 30.0 - 35.0 g/dL 01/09/2017 5:[address] [facility] RDW 17.3(H) 11.0 - 14.5 % 01/09/2017 5:[address] [facility] RDW-STDEV 50.4 37.0 - 54.0 fL 01/09/2017 5:[address] [facility] PLATELETS 463(H) 140 - 440 K/uL 01/09/2017 5:[address] [facility] MPV 9.9 8.9 - 12.8 fL 01/09/2017 5:[address] [facility] NEUTROPHILS 46 42 - 75 % 01/09/2017 5:[address] [facility] LYMPHOCYTES 33 24 - 44 % 01/09/2017 5:[address] [facility] MONOCYTES 8 2 - 10 % 01/09/2017 5:[address] [facility] EOSINOPHILS 11(H) 0 - 7 % 01/09/2017 5:[address] [facility] BASOPHILS 1 0 - 1 % 01/09/2017 5:[address] [facility] IMMATURE GRANULOCYTES 0 0 - 2 % 01/09/2017 5:[address] [facility] NEUTROPHIL ABSOLUTE 4.05 2.00 - 8.00 K/uL 01/09/2017 5:20 AM CDT [facility] LYMPHOCYTE ABSOLUTE 2.86 1.20 - 4.00 K/uL 01/09/2017 5:20 AM CDT [facility] MONOCYTE ABSOLUTE 0.73(H) 0.10 - 0.60 K/uL 01/09/2017 5:20 AM CDT [facility] EOSINOPHIL ABSOLUTE 0.95(H) 0.00 - 0.70 K/uL 01/09/2017 5:20 AM CDT [facility] BASOPHILS ABSOLUTE 0.11 0.00 - 0.20 K/uL 01/09/2017 5:20 AM CDT [facility] IMMATURE GRANULOCYTES ABSOLUTE 0.03 0.00 - 0.10 K/uL 01/09/2017 5:20 AM CDT [facility] Blood 01/09/2017 3:15 AM CDT 01/09/2017 5:12 AM CDT us Izabela Diamond MD HEMATOLOGY ORDERABLES Final Re sult [facility] CLIA# [id number] [address] [place] [address] * (ABNORMAL) HEMOGLOBIN A1C (01/09/2017 2:52 AM CDT) HEMOGLOBIN A1C 8.9(H) 4.0 - 6.0 % 01/09/2017 1:31 PM CDT [facility] EST. AVG GLUCOSE, A1C 209 mg/dL 01/09/2017 1:31 PM CDT [facility] Blood 01/09/2017 2:52 AM CDT 01/09/2017 6:53 AM CDT Narrative [facility] - 01/09/2017 1:31 PM CDT Test performed on [employer] instrumentation using HPLC methodology us Izabela Diamond MD CHEMISTRY ORDERABLES Final Res ult [facility] CLIA# [id number] [address] [place] [address] documented in this encounter Visit Diagnoses Not on filedocumented in this encounter Care Teams Research Physicist Relationship Specialty Start Date End Date Shravan Jones DO [address] [address] PCP - General Family Practice 12/04/16 documented as of this encounter
--- OUTSIDE RECORDS SUMMARY | 2024-12-25 22:23 | XMS_ITS | Clinical Summary ---
Author Organization [place] Address [address] [facility] Attn: [place] [address] Care Team Providers Care Production Operations Manager Name Role Phone Shravan Jones DO Primary Care Provider Allergies Active Allergy Reactions Criticality Noted Date Comments Acetaminophen Other (See Comments) Medium 09/22/2023 Pt states it makes me very sick all over Medications insulin lispro (HumaLOG) 100 units/mL injection glucose result was obtained greater than 30 minutes prior to insulin, recheck glucose prior to insulin.meal or when NPO CORRECTIONAL Dose, Medium-dose Regimen [...] units subcutaneous bid. 15 mL 7 Active Additional Information Patient taking differently: 5 Units subCUT DAILY AT BEDTIME, Reported on 09/24/2024 gabapentin (NEURONTIN) 300 mg capsule Take 1 Capsule (300 mg) by mouth every 8 hours. 7 Active aspirin (ECOTRIN EC) 81 mg Tablet, Delayed Release (E.C.) Take 81 mg by mouth daily. Active atorvastatin (LIPITOR) 40 mg tablet Take 40 mg by mouth daily at bedtime. Active sevelamer carbonate (RENVELA) 800 mg Tablet Take 800 mg by mouth 3 times daily with meals. Active insulin aspart (NovoLOG) 100 unit/mL injection Inject 3 Units by subcutaneous injection. Active naloxone (NARCAN) 4 mg/spray Gerry, Non-Aerosol EMERGENCY USE ONLY: Administer 1 spray (4 mg) in one nostril one time. May repeat in alternating nostrils every 2-3 min until responsive or EMS arrives. 2 Each 3 4 Active albuterol sulfate HFA 90 mcg/actuation aerosol inhaler Take 2 Puffs by inhalation every 4 hours as needed. 3 Active cloNIDine HCL (CATAPRES) 0.1 mg tablet TAKE 1 TABLET IF SYSTOLIC BLOOD PRESSURE IS GREATER THAN 160, REPEAT ONCE IF SYSTOLIC BLOOD PRESSURE IS STILL OVER 160 AFTER 1 HOUR. Active clopidogreL (PLAVIX) 75 mg Tablet Take 75 mg by mouth daily. Active escitalopram oxalate (LEXAPRO) 10 mg tablet Take 20 mg by mouth daily at bedtime. Active NIFEdipine (ADALAT CC) 30 mg Extended Release tablet Take 90 mg by mouth daily at bedtime. 4 Active nitroglycerin (NITROSTAT) 0.4 mg Tablet, Sublingual dissolve one tablet under the tongue every 5 minutes as needed for chest pain. do not exceed a total of 3 doses in 15 minutes Active carvediloL (COREG) 3.125 mg tablet Take 3.125 mg by mouth 2 times daily with meals. Active bumetanide (BUMEX) 1 mg tablet Take 1 mg by mouth see administration instructions. On non dialysis days 4 Active dorzolamide-ti moloL (COSOPT) 22.3-6.8 mg/mL solution Administer 1 Drop in right eye 2 times daily. 10 mL 1 4 Active lisinopriL (PRINIVIL) 40 mg tablet Take 40 mg by mouth daily. Active loperamide (IMODIUM) 2 mg capsule Take 2 mg by mouth every 3 hours as needed for Diarrhea/Loose Stools. Active oxyCODONE (ROXICODONE) 5 mg tabletIndicati ons:Encounter regarding vascular access for dialysis for ESRD ([facility]) Take 1 Tablet (5 mg) by mouth every 6 hours as needed for Pain. Max Daily Amount: 20 mg 10 Tablet 5 Active losartan (COZAAR) 50 mg tablet Take 50 mg by mouth daily. 5 Active Active Problems Problem Noted Date Diagnosed Date Stenosis of left circumflex coronary artery 09/2023 Other chest pain 09/23/2023 Atypical chest pain 09/22/2023 Elevated troponin 09/22/2023 Coronary artery disease invo lving little traverse coronary artery of little traverse heart without angina pectoris 09/21/2023 End stage renal disease 09/21/2023 ASHD (arteriosclerotic heart disease) 09/21/2023 Anemia 12/24/2016 Edema of both feet 12/23/2016 Status post left upper wedge and lower lobectomy 12/18/2016 Necrotizing pneumonia 12/17/2016 Empyema lung 12/17/2016 Methamphetamine use 12/16/2016 Tobacco use 12/09/2016 Cavitary pneumonia 12/06/2016 Erosive esophagitis 06/24/2016 Acute respiratory failure with hypoxia Type 2 diabetes mellitus wit hout complication, without long-term current use of insulin Resolved Problems Problem Noted Date Diagnosed Date Resolved Date Diabetes mellitus 12/16/2016 12/27/2016 Severe sepsis 12/20/2016 Blood poisoning 01/15/2017 Encounters Date Type Department Care Team Description 12/15/2024 External Device Data ST[facility] ABSTRACTION Provider, Abstract 12/04/2024 7:00 AM CDT - 12/04/2024 11:59 PM CDT Hospital Encounter [facility] Interventional Radiology [address] [place] [address] Chey Navas MD Birlew, Ryan Avery, MD Discharge Disposition: Home or Self Care 12/03/2024 Telephone [facility] Interventional Radiology [address] [place] [address] Stefani Zimmer RN Procedure 10/13/2024 External Device Data STL ABSTRACTION Provider, Abstract from Last 3 Months Immunizations Immunization Administration Dates Next Due (M-M-R II/PRIORIX)(12 MO UP) MEASLES, MUMPS AND RUBELLA VIRUS VACCINE, 0.5 ML IM/SUBCUT 09/25/1990 (PNEUMOVAX 23)(50 YRS UP) PN EUMOCOCCAL POLYSACCHARIDE (PPV23) 0.5 ML, IM 08/04/2017 (TDVAX)(7 YRS UP) TETANUS AN D DIPHTHERIA [...] Types Packs/Day Years Used Date Smoking Tobacco: Former Cigarettes Q uit: 08/05/2023 Tobacco Cessation:Counseling Given: Not Answered Comments:Quit smoking: pt lethargic Alcohol Use Standard Drinks/Week Comments Not Currently 0 (1 standard drink = 0.6 oz pur e alcohol) Social Connections Answer Date Recorded In a typical week, how many times do you talk on the telephone with family, friends, or neighbors? Never 09/22/19 24 Frequency of Social Gatherings with Friends and Family Not on file 09/22/2023 Attends Sikh Services Not on file 09/21 Active Member of Clubs or Organizations Not on f ile 09/22/2023 Attends Club or Organization Meetings Not on mohinder e 09/22/2023 Marital Status Not on file 09/22/2023 Feeling Safe Answer Date Recorded Are you in a relationship wi th someone who hurts you emotionally and/or physically? No 08/10/2024 Food Insecurity Answer Date Recorded Patient needs follow up regardin 10/14/2024 Transportation Needs Answer Date Record ed Patient needs follow up regardin 10/14/2024 Housing Stability Answer Date Recorded Social/Environmental Concerns No concerns Utility Needs Answer Date Recorded Patient needs follow up regardin 10/14/2024 Comments No Sex and Gender Information Value Date Recorded Sex Assigned at Not on file Legal Sex Female 3:34 PM [employer] Gender Identity Not on file Sexual Orientation Not on file Last Filed Vital Signs Vital Sign Reading Time Taken Comments Blood Pressure 148/73 12/04/2024 8:55 AM CDT Pulse 72 12/04/2024 8:55 AM CDT Temperature 36.3 C (97.3 F) 12/04/2024 7:16 AM CDT Respiratory Rate 14 12/04/2024 8:55 AM CDT Oxygen Saturation 97% 12/04/2024 8:55 AM CDT Inhaled Oxygen Concentration - - Weight 58.5 kg (129 lb) 12/04/2024 7:16 AM CDT Height 154.9 cm (5' 1 ) 12/04/2024 7:16 AM CDT Body Mass Index 24.37 12/04/2024 7:16 AM CDT Plan of Treatment Health Maintenance Due Date Last Done Comments DTAP/TDAP/TD VACCINES (3 - Tdap) 03/14/2000 03/13/2000, 09/25/1990 DIABETES ANNUAL FOOT EXAM 2004 DIABETES MICROALBUMIN ANNUAL SCREEN 2004 HPV/Cotest (21-29) 2007 CERVICAL CANCER SCREENING 2016 HPV/Cotest (30-65) 2016 PAP SMEAR 2016 LDL CHOLESTEROL ANNUAL 09/20/2024 09/21/2023 INFLUENZA VACCINE (#1) 2025 DIABETES HBA1C Q 6 MONTHS 05/28/20252024, 09/21/2023, 09/14/2023, Additional history exists DIABETES ANNUAL RETINAL EXAM 07/08/2025 07/08/2024, 07/08/2024, 07/08/2024, Additional history exists HEPATITIS B VACCINES Completed 03/13/2000, 10/11/1999, 09/06/1999 HPV VACCINES Aged Out No longer eligi ble based on patient's age to complete this topic Medical Devices Implanted Type Area Seed Analysis Laboratory Assistant Device Identifier Shelf Expiration Date Model / Serial / Lot Max dailym Flour [id number] - [id number] Implanted:Qty : 2 on 12/17/2016 by Deandre Alan MD Biological Left: Lung CR BARD- [employer] 09/19/2019 [id number] / / [id number] Cath Dialysis Glidepath 14.5fr 24cm Std [id number] - [id number] Implanted:Qty : 1 on 03/18/2024 by Asif Mcclellan MD at [facility] Catheter Right: Chest BARD ANGEL VASC 09/21/2025 [id number] / / [id number] Clip Ligating Horizon Red [id number] - Csc - [id number] Implanted:Qty : 1 on 08/10/2024 by Chato Fitch MD at [facility] Clip Left: Arm [employer]LE[employer] INC [id number] 05/16/2029 [id number] / / [id number] Clip Ligating Horizon Med Ti [id number] - Csc - [id number] Implanted:Qty : 1 on 08/10/2024 by Chato Fitch MD at [facility] Clip Left: Arm TELEFLEX- WECK CLOSURE SYS [id number] 03/31/2029 [id number] / / [id number] Piccoloist Ligaclip Sml Mcs20 - [id number] Implanted:Qty : 1 on 08/10/2024 by Chato Fitch MD at [facility] Clip Left: Arm J&J- [employer] [id number] 03/23/2029 MCS20 / / [id number] Closure Perclose Prostyle Sut Mediate 35297-33 - [id number] Implanted:Qty : 1 on 09/24/2023 by Janell Beauchamp MD at [facility] Closure Device N/A: Groin LOVE- VASC DEVICE [id number] 06/23/2025 [id number] / / [id number] Closure Perclose Prostyle Sut Mediate 00182-18 - [id number] Implanted:Qty : 1 on 10/24/2023 by Janell Beauchamp MD at [facility] Closure Device Right: Groin LOVE- VASC DEVICE [id number] 07/24/2025 47629-73 / / [id number] Oil Slc 8.5ml [id number] - [id number] Implanted:Qty : 1 on 06/23/2024 by Janey Carrera MD at [facility] Eye Right: Eye YINA LAB 12/21/2026 [id number] / [id number] / [id number] Graft Vasc Propaten 4-3iob40oh [id number] - [id number] Implanted:Qty : 1 on 08/10/2024 by Chato Fitch MD at [facility] Graft Left: Arm [employer] [id number] 05/21/2027 [id number] / [id number] / Agent Hemostat Surgicel 2x3in 1952s - [id number] Implanted:Qty : 1 on 08/10/2024 by Chato Fitch MD at [facility] Hemostatic Left: Arm J&J- ETHICON INC [id number] 12/21/20281952S / / [id number] Hemostatic Surgiflo 8ml W/ Thrombin 2994 - [id number] Implanted:Qty : 1 on 08/10/2024 by Chato Fitch MD at [facility] Hemostatic Left: Arm J&J- [employer]ON INC [id number] 10/21/2025 2994 / / [id number] Agent Hemostat Surgicel 2x3in 1952s - [id number] Implanted:Qty : 1 on 08/10/2024 by Chato Fitch MD at [facility] Hemostatic Left: Arm J&J- [employer]ICON INC [id number] 12/21/20281952S / / [id number] Stent Synergy Xd 3.0x48mm Evrlms Elut [id number] - [id number] Implanted:Qty : 1 on 09/24/2023 by Janell Beauchamp MD at [facility] Stent N/A: Coronary [employer]OST[employer]E [id number] 03/31/2025 [id number] / / [id number] Stent Synergy Xd 2.55m18rw Evrlms Elut [id number] - [id number] Implanted:Qty : 1 on 10/24/2023 by Janell Beauchamp MD at [facility] Stent Left: Coronary [employer] [id number] 08/19/2024 [id number] 220 / / [id number] Control Implant Funmi Procedures Procedure Name Priority Date/Time Associated Diagnosis Comments IR FISTULOGRAM Routine 12/04/2024 9:05 AM CDT ESRD (end stage renal disease) ([facility]) LIPID PANEL Routine 09/21/2023 6:47 PM CDT HEMOGLOBIN A1C Routine 09/21/2023 6:46 PM CDT from Last 3 Months or Most Recently Relevant to Health Maintenance Results * IR FISTULOGRAM (12/04/2024 9:05 AM CDT) Anatomical Region Laterality Modality X-Ray Angiograph y 12/04/2024 9:06 AM CDT Impressions 12/05/2024 8:59 AM CDT IMPRESSION: Please see below. Exam: IR FISTULOGRAM 1. Ultrasound guided antegrade micropuncture access of the left brachial artery to brachial vein arteriovenous graft 2. Central venogram including the left subclavian vein, left brachiocephalic vein, and superior vena cava 3. Left arteriovenous graft angiogram 4. Percutaneous transluminal angioplasty of focal moderate stenosis (60%) of the vein graft anastomosis with 8 mm angioplasty 5. Reflux angiogram across the arterial anastomosis 6. Post angioplasty completion angiogram Date/Time of Exam: 12/04/2024 9:05 AM REASON FOR EXAM: Increased bruit and increased postprocedural bleeding after dialysis. DIAGNOSIS: ESRD (end stage renal disease) ([facility]). Medications: Fentanyl and versed were titrated to effect. Moderate (conscious) sedation for this procedure was performed with continuous physician supervision. Medical history, physical exam, drug dosages, routes of drug administration, monitoring data, and precise times of service are documented in the medical record on the [facility]-approved form, 'Sedative/Analgesic Administration for Diagnostic and Therapeutic Procedures'. Please see nursing flow sheets for dosage and time. Sedation was administered by a trained independent observer. I personally supervised 25 minutes of sedation. Contrast: 30 mL Isovue-300 Fluoroscopy time: 0.9 minutes Estimated Blood Loss: Minimal Complications:None Implantable Devices: None Procedure: After informed consent was obtained from the patient, the patient was taken to the angiography suite and placed supine on the angiography table. The patient's left arm was prepped and draped in sterile fashion. A timeout was performed. The graft was evaluated with ultrasound. The skin overlying the peripheral aspect of the graft was anesthetized with lidocaine. A tiny dermatotomy was made with 11 blade scalpel. Under direct ultrasound guidance, antegrade micropuncture access was obtained. An angiogram was performed and carried out centrally. A 0.035 inch Glidewire was advanced and the transition dilator is exchanged for a 6 [place]an vascular sheath. An 8 mm angioplasty balloon was advanced to the vein graft anastomosis and angioplasty was performed. During angioplasty, a reflux angiogram across the arterial anastomosis was performed. The balloon was deflated and a postprocedural angiogram was performed. The wire and catheter removed. The sheath was removed and hemostasis was achieved with manual compression. A sterile bandage was applied. The patient left the angiography suite in good condition. Findings: 1. Ultrasound guided antegrade micropuncture access of the left brachial artery to brachial vein arteriovenous graft demonstrates graft patency. Needle entry was documented and sent to PACS. 2. Central venogram including the left subclavian vein, left brachiocephalic vein, and superior vena cava demonstrates no significant stenosis. 3. Left arteriovenous graft angiogram demonstrates focal moderate stenosis at the vein graft anastomosis with the luminal diameter approximately 3.5 mm. There is approximately 60% stenosis. 4. Percutaneous transluminal angioplasty of focal moderate stenosis (60%) of the vein graft anastomosis with 8 mm angioplasty as above. 5. Reflux angiogram across the arterial anastomosis reveals no significant stenosis. 6. Post angioplasty completion angiogram demonstrates no residual stenosis. IMPRESSION: Focal moderate vein graft anastomotic stenosis was successfully treated with 8 mm angioplasty. Narrative 12/05/2024 8:59 AM CDT . Procedure Note Asif Mcclellan MD - 12/05/2024 . IMPRESSION: Please see below. Exam: IR FISTULOGRAM 1. Ultrasound guided antegrade micropuncture access of the left brachial artery to brachial vein arteriovenous graft 2. Central venogram including the left subclavian vein, left brachiocephalic vein, and superior vena cava 3. Left arteriovenous graft angiogram 4. Percutaneous transluminal angioplasty of focal moderate stenosis (60%) of the vein graft anastomosis with 8 mm angioplasty 5. Reflux angiogram across the arterial anastomosis 6. Post angioplasty completion angiogram Date/Time of Exam: 12/04/2024 9:05 AM REASON FOR EXAM: Increased bruit and increased postprocedural bleeding after dialysis. DIAGNOSIS: ESRD (end stage renal disease) ([facility]). Medications: Fentanyl and versed were titrated to effect. Moderate (conscious) sedation for this procedure was performed with continuous physician supervision. Medical history, physical exam, drug dosages, routes of drug administration, monitoring data, and precise times of service are documented in the medical record on the [facility]-approved form, 'Sedative/Analgesic Administration for Diagnostic and Therapeutic Procedures'. Please see nursing flow sheets for dosage and time. Sedation was administered by a trained independent observer. I personally supervised 25 minutes of sedation. Contrast: 30 mL Isovue-300 Fluoroscopy time: 0.9 minutes Estimated Blood Loss: Minimal Complications:None Implantable Devices: None Procedure: After informed consent was obtained from the patient, the patient was taken to the angiography suite and placed supine on the angiography table. The patient's left arm was prepped and draped in sterile fashion. A timeout was performed. The graft was evaluated with ultrasound. The skin overlying the peripheral aspect of the graft was anesthetized with lidocaine. A tiny dermatotomy was made with 11 blade scalpel. Under direct ultrasound guidance, antegrade micropuncture access was obtained. An angiogram was performed and carried out centrally. A 0.035 inch Glidewire was advanced and the transition dilator is exchanged for a 6 [place]an vascular sheath. An 8 mm angioplasty balloon was advanced to the vein graft anastomosis and angioplasty was performed. During angioplasty, a reflux angiogram across the arterial anastomosis was performed. The balloon was deflated and a postprocedural angiogram was performed. The wire and catheter removed. The sheath was removed and hemostasis was achieved with manual compression. A sterile bandage was applied. The patient left the angiography suite in good condition. Findings: 1. Ultrasound guided antegrade micropuncture access of the left brachial artery to brachial vein arteriovenous graft demonstrates graft patency. Needle entry was documented and sent to PACS. 2. Central venogram including the left subclavian vein, left brachiocephalic vein, and superior vena cava demonstrates no significant stenosis. 3. Left arteriovenous graft angiogram demonstrates focal moderate stenosis at the vein graft anastomosis with the luminal diameter approximately 3.5 mm. There is approximately 60% stenosis. 4. Percutaneous transluminal angioplasty of focal moderate stenosis (60%) of the vein graft anastomosis with 8 mm angioplasty as above. 5. Reflux angiogram across the arterial anastomosis reveals no significant stenosis. 6. Post angioplasty completion angiogram demonstrates no residual stenosis. IMPRESSION: Focal moderate vein graft anastomotic stenosis was successfully treated with 8 mm angioplasty. us Chey Navas MD IR ORDERABLES Final Result * (ABNORMAL) LIPID PANEL (09/21/2023 6:47 PM CDT) [facility] CHOLESTEROL 96 <200 mg/dL 09/21/2023 10:29 PM CDT [facility] TRIGLYCERIDE 164(H) <150 mg/dL 09/21/2023 10:29 PM CDT [facility] HDL 36(L) 40 - 59 mg/dL 09/21/2023 10:29 PM CDT [facility] LDL CALCULATED 27 <100 mg/dL 09/21/2023 10:29 PM T [facility] NON-HDL CHOLESTEROL 60 <130 mg/dL 09/21/2023 10:29 PM CDT [facility] Blood Venipuncture / Unknown 09/21/2023 6:47 PM CDT 09/21/2023 7:10 PM CDT Narrative [facility] - 09/21/2023 10:29 PM CDT TOTAL CHOLESTEROL mg/dL Desirable <200 Borderline high 200-239 High >=240 TRIGLYCERIDES mg/dL Normal <150 Borderline high 150-199 High 200-499 Very high >=500 HDL CHOLESTEROL mg/dL Low <40 Normal 40-59 Desirable >=60 NON HDL CHOLESTEROL mg/dL Optimal <130 Near Optimal 130-159 Borderline High 160-189 Very High >=190 CALCULATED LDL mg/dL LDL <70, OPTIMAL if have Atherosclerotic cardiovascular disease (ASCVD) or intermediate or higher (>7.5%) 10 year risk of ASCVD including most adults with diabetes. LDL <100, Optimal in adult patients with low (<7.5%) 10 year ASCVD risk LDL 100-160, Suboptimal LDL >160, High LDL >190, Very high ATPIII Guidelines Reference Ranges for Lipid Panels (NCEP/AMA) . Luiz Lacy MD CHEMISTRY ORDERABLES Final R esult [facility] CLIA # [id number] [facility] [address] [place] [address] * (ABNORMAL) HEMOGLOBIN A1C (09/21/2023 6:46 PM CDT) [facility] HEMOGLOBIN A1C 6.8(H) <=5.6 % 09/23/2023 9:24 AM CDT [facility] EST. AVG GLUCOSE, A1C 148 mg/dL 09/23/2023 9:24 AM CDT [facility] Blood Venipuncture / Unknown 09/21/2023 6:46 PM CDT 09/21/2023 7:08 PM CDT Narrative [facility] - 09/23/2023 9:24 AM CDT HGB A1C INTERPRETATION NORMAL: <5.7% PRE-DIABETES: 5.7 - 6.4% DIABETES: 6.5% OR GREATER Luiz Lacy MD CHEMISTRY ORDERABLES Final R esult [facility] CLIA # [id number] [address] [place] [id number] from Last 3 Months or Most Recently Relevant to Health Maintenance Insurance [place]ICA[place] Advance Directives For more information, please contact: [phone] * Full Code (Latest Code Status on File) Date Activated Date Inactivated Comments 10/24/2023 2:34 PM 10/25/2023 11:47 AM * Full Code Date Activated Date Inactivated Comments 10/24/2023 9:13 AM 10/24/2023 2:34 PM * Full Code Date Activated Date Inactivated Comments 09/24/2023 3:14 PM 09/25/2023 9:51 PM * Full Code Date Activated Date Inactivated Comments 09/21/2023 5:50 PM 09/24/2023 3:14 PM Care Teams Production Operations Manager Relationship Specialty Start Date End Date Shravan Jones DO [address] [address] PCP - General Family Practice 12/04/16
--- OUTSIDE RECORDS SUMMARY | 2024-12-25 22:23 | XMS_ITS | Encounter Summary ---
Author Organization [facility] Address [address] [place] [address] Care Team Providers Care Tonsorial Artist Name Role Phone Shravan Jones DO Primary Care Provider [phone] Encounter Details Date Type Department Care Team (Late st Contact Info) Description 12/31/2016 Lab Requisition [facility] Laboratory Services [address] [place] [address] [place] [address] David Ortega MD [address] [place] [address] Social History Tobacco Use Types Packs/Day Years Used Date Smoking Tobacco: Every Day Cigarettes Comments:pt lethargic Comments Unknown Sex and Gender Information Value Date Recorded Sex Assigned at Not on file 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 Gender Identity Not on file Sexual Orientation Not on file documented as of this encounter Plan of Treatment Not on file documented as of this encounter Procedures Procedure Name Priority Date/Time Associated Diagnosis Comments CBC WITH DIFFERENTIAL Routine 12/31/2016 2:26 AM CDT MAGNESIUM LEVEL Routine 12/31/2016 2:26 AM CDT COMPREHENSIVE METABOLIC PANEL Routine 12/31/2016 2:26 AM CDT documented in this encounter Results * MAGNESIUM LEVEL (12/31/2016 2:26 AM CDT) MAGNESIUM 1.7 1.6 - 2.6 mg/dL 12/31/2016 5:52 AM T [facility] Blood 12/31/2016 2:26 AM CDT 12/31/2016 5:17 AM CDT [facility] - 12/31/2016 5:52 AM CDT Due to Channel Lip Stiffener Insoles update, MG+ reference range has changed from 1.8 - 2.4 mg/dL to the new reference range of 1.6 - 2.6 mg/dL. This will have limited patient impact. us David Ortega MD CHEMISTRY ORDERABLES Final Res ult [facility] CLIA# [id number] [address] [place] [address] * (ABNORMAL) COMPREHENSIVE METABOLIC PANEL (12/31/2016 2:26 AM CDT) SODIUM 138 136 - 145 mmol/L 12/31/2016 5:52 AM CDT [facility] POTASSIUM 4.7 3.5 - 5.1 mmol/L 12/31/2016 5:52 AM [facility] CHLORIDE 102 98 - 107 mmol/L 12/31/2016 5:52 AM T [facility] CO2 27 21 - 32 mmol/L 12/31/2016 5:52 AM T [facility] CALCIUM 9.1 8.4 - 10.1 mg/dL 12/31/2016 5:52 AM T [facility] BUN 17 7 - 17 mg/dL 12/31/2016 5:52 AM T [facility] CREATININE 0.87 0.55 - 1.02 mg/dL 12/31/2016 5:52 AM T [facility] GLUCOSE 214(H) 74 - 106 mg/dL 12/31/2016 5:52 AM T [facility] TOTAL PROTEIN 8.2 6.4 - 8.2 g/dL 12/31/2016 5:52 AM T [facility] ALBUMIN 1.9(L) 3.4 - 5.0 g/dL 12/31/2016 5:52 AM CDT [facility] BILIRUBIN TOTAL 0.2 0.2 - 1.0 mg/dL 12/31/2016 5:52 AM CDT [facility] ALKALINE PHOSPHATASE 95 25 - 100 U/L 12/31/2016 5:52 AM CDT [facility] AST 9(L) 15 - 37 U/L 12/31/2016 5:52 AM CDT [facility] ALT 14 13 - 61 U/L 12/31/2016 5:52 AM CDT [facility] GFR >60 >=60 mL/min/1.7 3 sq meter 12/31/2016 5:52 AM T [facility] Comment: eGFR has not been validated [...] GFR, >60 >=60 mL/min/1.7 3 sq meter 12/31/2016 5:52 AM CDT [facility] ANION GAP 9 4 - 30 mmol/L 12/31/2016 5:52 AM T [facility] Blood 12/31/2016 2:26 AM CDT 12/31/2016 5:17 AM CDT us David Ortega MD CHEMISTRY ORDERABLES Final Res ult [facility] CLIA# [id number] [address] [place] [address] * (ABNORMAL) CBC WITH DIFFERENTIAL (12/31/2016 2:26 AM CDT) WBC 13.7(H) 4.5 - 11.0 K/uL 12/31/2016 6:32 AM [facility] RBC 3.66(L) 4.20 - 5.40 M/uL 12/31/2016 6:32 AM [facility] HEMOGLOBIN 9.3(L) 12.0 - 16.0 g/dL 12/31/2016 6:32 AM [facility] HEMATOCRIT 29.6(L) 36.0 - 46.0 % 12/31/2016 6:32 AM [facility] MCV 80.9(L) 84.0 - 103.0 fL 12/31/2016 6:32 AM [facility] MCH 25.4(L) 27.0 - 34.0 pg 12/31/2016 6:32 AM [facility] MCHC 31.4 30.0 - 35.0 g/dL 12/31/2016 6:32 AM [facility] RDW 17.4(H) 11.0 - 14.5 % 12/31/2016 6:32 AM [facility] RDW-STDEV 52.1 37.0 - 54.0 fL 12/31/2016 6:32 AM [facility] PLATELETS 767(H) 140 - 440 K/uL 12/31/2016 6:32 AM [facility] MPV 9.0 8.9 - 12.8 fL 12/31/2016 6:32 AM [facility] NEUTROPHILS 68 42 - 75 % 12/31/2016 6:32 AM [facility] LYMPHOCYTES 17(L) 24 - 44 % 12/31/2016 6:32 AM [facility] MONOCYTES 8 2 - 10 % 12/31/2016 6:32 AM [facility] EOSINOPHILS 6 0 - 7 % 12/31/2016 6:32 AM [facility] BASOPHILS 0 0 - 1 % 12/31/2016 6:32 AM [facility] IMMATURE GRANULOCYTES 1 0 - 2 % 12/31/2016 6:32 AM CDT [facility] NEUTROPHIL ABSOLUTE 9.26(H) 2.00 - 8.00 K/uL 12/31/2016 6:32 AM CDT [facility] LYMPHOCYTE ABSOLUTE 2.28 1.20 - 4.00 K/uL 12/31/2016 6:32 AM CDT [facility] MONOCYTE ABSOLUTE 1.07(H) 0.10 - 0.60 K/uL 12/31/2016 6:32 AM CDT [facility] EOSINOPHIL ABSOLUTE 0.82(H) 0.00 - 0.70 K/uL 12/31/2016 6:32 AM CDT [facility] BASOPHILS ABSOLUTE 0.06 0.00 - 0.20 K/uL 12/31/2016 6:32 AM CDT [facility] IMMATURE GRANULOCYTES ABSOLUTE 0.17(H) 0.00 - 0.10 K/uL 12/31/2016 6:32 AM CDT [facility] Blood 12/31/2016 2:26 AM CDT 12/31/2016 5:17 AM CDT Narrative [facility] - 12/31/2016 6:32 AM CDT Smear reviewed us David Ortega MD HEMATOLOGY ORDERABLES Final Re sult [facility] CLIA# [id number] [address] [place] [address] documented in this encounter Visit Diagnoses Not on filedocumented in this encounter Care Teams Tonsorial Artist Relationship Specialty Start Date End Date Shravan Jones DO [address] [address] PCP - General Family Practice 12/04/16 documented as of this encounter
--- OUTSIDE RECORDS SUMMARY | 2024-12-25 22:23 | XMS_ITS | Patient Health Record ---
Author Organization [facility] Address [address] [place], [place] [address] Care Team Providers Care Tire Center Supervisor Name Role Phone Kayla ALEMAN, Mao Unavailable [phone] Elizabeth Reveles Unavailable Unavailable Allergies Allergen (clinical drug ingredient) Drug/Non Drug Allergy documented on EMR Reaction Allergy Type Onset Date Status Not verifiable (uncoded) Unknown Allergy Active Reason For Referral No Information Plan Of Treatment No Information Insurance Providers Payer Name Payer Address Payer Phone Subscriber Number Group Number Insured Name Patient Relationship to Insured Coverage Start Date Coverage End Date [facility] [address] [address] [place] [address] [id number] Donita Aguilar Self - patient is the insured Medical (General) History Medical History History ICD Code See scanned documentation Surgical History Surgery Date(Month/Year) Cholecystectomy, perfromed at [facility] in [place], 02/02/15 Left lower lung lobectomy, 11/2016
--- OUTSIDE RECORDS SUMMARY | 2024-12-25 22:23 | XMS_ITS | Encounter Summary ---
Author Organization [facility] Address [address] [place] [address] Care Team Providers Care Customer Response Representative Name Role Phone Shravan Jones DO Primary Care Provider [phone] Encounter Details Date Type Department Care Team (Late st Contact Info) Description 12/28/2016 Lab Requisition [facility] Laboratory Services [address] [place] [address] [place] [address] David Ortega MD [address] [place] [address] Social History Tobacco Use Types Packs/Day Years Used Date Smoking Tobacco: Every Day Cigarettes Comments:pt lethargic Comments Unknown Sex and Gender Information Value Date Recorded Sex Assigned at Not on file 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 Gender Identity Not on file Sexual Orientation Not on file documented as of this encounter Plan of Treatment Not on file documented as of this encounter Procedures Procedure Name Priority Date/Time Associated Diagnosis Comments CBC WITH DIFFERENTIAL Routine 12/28/2016 2:39 AM CDT PTT Routine 12/28/2016 2:39 AM CDT PROTIME-INR Routine 12/28/2016 2:39 AM CDT PHOSPHORUS Routine 12/28/2016 2:39 AM CDT MAGNESIUM LEVEL Routine 12/28/2016 2:39 AM CDT COMPREHENSIVE METABOLIC PANEL Routine 12/28/2016 2:39 AM CDT documented in this encounter Results * PHOSPHORUS (12/28/2016 2:39 AM CDT) Pathologist [facility] PHOSPHORUS 3.4 2.5 - 4.9 mg/dL 12/28/2016 5:42 AM CDT [facility] Blood Collection / Unknown 12/28/2016 2:39 AM CDT 12/28/2016 5:01 AM CDT David Ortega MD CHEMISTRY ORDERABLES Final Res ult Performing Organization Address [facility] Co de Phone Number [facility] CLIA# [id number] [address] [place] [id number] * MAGNESIUM LEVEL (12/28/2016 2:39 AM CDT) [facility] MAGNESIUM 1.6 1.6 - 2.6 mg/dL 12/28/2016 5:42 AM CDT [facility] Blood Collection / Unknown 12/28/2016 2:39 AM CDT 12/28/2016 5:01 AM CDT Narrative [facility] - 12/28/2016 5:42 AM CDT Due to Transport Manager update, MG+ reference range has changed from 1.8 - 2.4 mg/dL to the new reference range of 1.6 - 2.6 mg/dL. This will have limited patient impact. David Ortega MD CHEMISTRY ORDERABLES Final Res ult Performing Organization Address [facility] Co de Phone Number [facility] CLIA# [id number] [address] [place] [address] * PROTIME-INR (12/28/2016 2:39 AM CDT) [facility] PROTIME 15.0 12.3 - 15.5 Seconds 12/28/2016 5:16 AM CDT [facility] INR 1.1 0.8 - 1.2 12/28/2016 5:16 AM CDT [facility] Blood Collection / Unknown 12/28/2016 2:39 AM CDT 12/28/2016 5:01 AM CDT [place] [facility] - 12/28/2016 5:16 AM CDT Expected Values for INR: DVT/PE Goal INR 2.5; range 2.0 - 3.0 Valve Replacement Tissue Goal INR 2.5; range 2.0 - 3.0 Valve Replacement Mechanical Goal INR 3.0; range 2.5 - 3.5 POST-PA Goal INR 2.5; range 2.0 - 3.0 or Goal INR 3.0; range 2.5 - 3.5 Atrial Fibrillation Goal INR 2.5; range 2.0 - 3.0 Ischemic Stroke Goal INR 2.5; range 2.0 - 3.0 For additional information see Guidelines for Anticoagulation available from the pharmacy Wendy Vargas Pharm D. David Ortega MD HEMATOLOGY ORDERABLES Final Re sult [facility] CLIA# [id number] [address] [place] [address] * (ABNORMAL) PTT (12/28/2016 2:39 AM CDT) PTT 39.1(H) 24.8 - 38.8 seconds 12/28/2016 5:16 AM CDT [facility] Blood Collection / Unknown 12/28/2016 2:39 AM CDT 12/28/2016 5:01 AM CDT [place] [facility] - 12/28/2016 5:16 AM CDT Therapeutic Range: Hi-level PE/DVT heparin protocol 80.1 - 95.0 sec Lo-level PE/DVT heparin protocol 70.1 - 85.0 sec Cardiac Heparin Protocol 70.1 - 100.0 sec David Ortega MD HEMATOLOGY ORDERABLES Final Re sult [facility] CLIA# [id number] [facility] [place] [address] * (ABNORMAL) CBC WITH DIFFERENTIAL (12/28/2016 2:39 AM CDT) Pathologist [facility] WBC 11.0 4.5 - 11.0 K/uL 12/28/2016 5:09 AM CDT [facility] RBC 3.80(L) 4.20 - 5.40 M/uL 12/28/2016 5:09 AM CDT [facility] HEMOGLOBIN 9.3(L) 12.0 - 16.0 g/dL 12/28/2016 5:09 AM [facility] HEMATOCRIT 30.6(L) 36.0 - 46.0 % 12/28/2016 5:09 AM CDT [facility] MCV 80.5(L) 84.0 - 103.0 fL 12/28/2016 5:09 AM CDT [facility] MCH 24.5(L) 27.0 - 34.0 pg 12/28/2016 5:09 AM CDT [facility] MCHC 30.4 30.0 - 35.0 g/dL 12/28/2016 5:09 AM CDT [facility] RDW 17.3(H) 11.0 - 14.5 % 12/28/2016 5:09 AM T [facility] RDW-STDEV 51.8 37.0 - 54.0 fL 12/28/2016 5:09 AM CDT [facility] PLATELETS 757(H) 140 - 440 K/uL 12/28/2016 5:09 AM CDT [facility] MPV 8.9 8.9 - 12.8 fL 12/28/2016 5:09 AM CDT [facility] NEUTROPHILS 65 42 - 75 % 12/28/2016 5:09 AM CDT [facility] LYMPHOCYTES 19(L) 24 - 44 % 12/28/2016 5:09 AM CDT [facility] MONOCYTES 10 2 - 10 % 12/28/2016 5:09 AM CDT [facility] EOSINOPHILS 5 0 - 7 % 12/28/2016 5:09 AM CDT [facility] BASOPHILS 1 0 - 1 % 12/28/2016 5:09 AM CDT [facility] IMMATURE GRANULOCYTES 1 0 - 2 % 12/28/2016 5:09 AM CDT [facility] NEUTROPHIL ABSOLUTE 7.19 2.00 - 8.00 K/uL 12/28/2016 5:09 AM CDT [facility] LYMPHOCYTE ABSOLUTE 2.04 1.20 - 4.00 K/uL 12/28/2016 5:09 AM CDT [facility] MONOCYTE ABSOLUTE 1.06(H) 0.10 - 0.60 K/uL 12/28/2016 5:09 AM CDT [facility] EOSINOPHIL ABSOLUTE 0.60 0.00 - 0.70 K/uL 12/28/2016 5:09 AM CDT [facility] BASOPHILS ABSOLUTE 0.07 0.00 - 0.20 K/uL 12/28/2016 5:09 AM CDT [facility] IMMATURE GRANULOCYTES ABSOLUTE 0.07 0.00 - 0.10 K/uL 12/28/2016 5:09 AM T [facility] Blood Collection / Unknown 12/28/2016 2:39 AM CDT 12/28/2016 5:01 AM CDT us David Ortega MD HEMATOLOGY ORDERABLES Final Re sult [facility] CLIA# [id number] [address] [place] [address] * (ABNORMAL) COMPREHENSIVE METABOLIC PANEL (12/28/2016 2:39 AM CDT) SODIUM 143 136 - 145 mmol/L 12/28/2016 5:47 AM CDT [facility] POTASSIUM 3.3(L) 3.5 - 5.1 mmol/L 12/28/2016 5:47 AM [facility] CHLORIDE 103 98 - 107 mmol/L 12/28/2016 5:47 AM [facility] CO2 29 21 - 32 mmol/L 12/28/2016 5:47 AM [facility] CALCIUM 8.9 8.4 - 10.1 mg/dL 12/28/2016 5:47 AM [facility] BUN 13 7 - 17 mg/dL 12/28/2016 5:47 AM [facility] CREATININE 0.70 0.55 - 1.02 mg/dL 12/28/2016 5:47 AM [facility] GLUCOSE 46(LL) 74 - 106 mg/dL 12/28/2016 5:47 AM [facility] TOTAL PROTEIN 8.2 6.4 - 8.2 g/dL 12/28/2016 5:47 AM [facility] ALBUMIN 1.8(L) 3.4 - 5.0 g/dL 12/28/2016 5:47 AM [facility] BILIRUBIN TOTAL 0.2 0.2 - 1.0 mg/dL 12/28/2016 5:47 AM [facility] ALKALINE PHOSPHATASE 93 25 - 100 U/L 12/28/2016 5:47 AM [facility] AST 18 15 - 37 U/L 12/28/2016 5:47 AM [facility] ALT 18 13 - 61 U/L 12/28/2016 5:47 AM [facility] GFR >60 >=60 mL/min/1.7 3 sq meter 12/28/2016 5:47 AM [facility] Comment: eGFR has not been [...] GFR, >60 >=60 mL/min/1.7 3 sq meter 12/28/2016 5:47 AM CDT [facility] ANION GAP 11 4 - 30 mmol/L 12/28/2016 5:47 AM CDT [facility] Blood Collection / Unknown 12/28/2016 2:39 AM CDT 12/28/2016 5:01 AM CDT us David Ortega MD CHEMISTRY ORDERABLES Final Res ult [facility] CLIA# [id number] [address] [place] [address] documented in this encounter Visit Diagnoses Not on filedocumented in this encounter Care Teams Customer Response Representative Relationship Specialty Start Date End Date Shravan Jones DO [address] [address] PCP - General Family Practice 12/04/16 documented as of this encounter
--- OUTSIDE RECORDS SUMMARY | 2024-12-25 22:23 | XMS_ITS | Encounter Summary ---
Author Organization [facility] Address [address] [place] [address] Care Team Providers Care Bd Special Education Teacher Name Role Phone Shravan Jones DO Primary Care Provider [phone] Reason for Visit * Reason Onset Date Comments Appointment Notification 11/05/2023 Encounter Details Date Type Department Care Team (Late st Contact Info) Description 11/05/2023 Telephone [facility] [address] [place] [address] Janell Beauchamp MD [address] [place] [address] Appointment Notification Social History Tobacco Use Types Packs/Day Years Used Date Smoking Tobacco: Every Day Comments:Quit smoking: pt le thargic Social Connections Answer Date Recorded In a typical week, how many times do you talk on the telephone with family, friends, or neighbors? Never 09/22/19 24 Frequency of Social Gatherings with Friends and Family Not on file 09/22/2023 Attends Latter Day Services Not on file 09/21 Active Member of Clubs or Organizations Not on f ile 09/22/2023 Attends Club or Organization Meetings Not on mohinder e 09/22/2023 Marital Status Not on file 09/22/2023 Feeling Safe Answer Date Recorded Are you in a relationship wi th someone who hurts you emotionally and/or physically? No 10/24/2023 Food Insecurity Answer Date Recorded Social/Environmental Concerns No concerns Transportation Needs Answer Date Record ed Social/Environmental Concerns No concerns Housing Stability Answer Date Recorded Social/Environmental Concerns No concerns Utility Needs Answer Date Recorded Social/Environmental Concerns No concerns Comments Unknown Sex and Gender Information Value Date Recorded Sex Assigned at Not on file Legal Sex Female 3:34 PM COMPLEX DIRECTOR Gender Identity Not on file Sexual Orientation Not on file documented as of this encounter Miscellaneous Notes * Telephone Encounter - Patrica Barney - 11/05/2023 12:07 PM CDT Janell (Provider) MESSAGE Pt needs to cancel appt on 11/07 and would like to resched. For 11/25 as she has other appts in town that day. Please call pt to reschedule. [facility] Cloth Presser: Patrica Barney documented in this encounter Plan of Treatment Not on file documented as of this encounter Visit Diagnoses Not on filedocumented in this encounter Additional Health Concerns Infection Onset Date Last Indicated Resolved Time R/O C. diff 07/06/2024 07/06/2024 07/06/2024 8:35 AM COMPLEX DIRECTOR documented as of this encounter Care Teams Bd Special Education Teacher Relationship Specialty Start Date End Date Shravan Jones DO [address] [address] PCP - General Family Practice 12/04/16 documented as of this encounter
--- OUTSIDE RECORDS SUMMARY | 2024-12-25 22:23 | XMS_ITS | Encounter Summary ---
Author Organization [facility] Address [address] [place] [address] Care Team Providers Care Liaison Engineer Name Role Phone Shravan Jones DO Primary Care Provider [phone] Encounter Details Date Type Department Care Team (Late st Contact Info) Description 12/12/2016 Nurse Only [facility] 4D Surgery Heart Lung [address] [place] [address] Stephenie Smith RN [address] [place] [address] Social History Tobacco Use Types Packs/Day Years Used Date Smoking Tobacco: Every Day Cigarettes Comments:pt lethargic Comments Unknown Sex and Gender Information Value Date Recorded Sex Assigned at Not on file 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
--- NOTE | 2024-12-25 22:30 | XRR_ITS ---
PROCEDURE INFORMATION: Exam: XR Chest Exam date and time: 12/25/2024 10:36 PM Age: 39 years old Clinical indication: Chest pressure; Prior surgery; Surgery date: 6+ months; Surgery type: Dialysis cath; C/O chest pain; Additional info: Cp TECHNIQUE: Imaging protocol: Radiologic exam of the chest. Views: 1 view. COMPARISON: CR (CHEST, ) 11/01/2024 9:49 PM FINDINGS: Lungs: Unremarkable. No consolidation. Pleural spaces: Unremarkable. No pleural effusion. No pneumothorax. Heart/Mediastinum: Unremarkable. No cardiomegaly. Vasculature: Vascular stents project over the heart. Stable nonenlarged cardiomediastinal silhouette. Bones/joints: Unremarkable. XR/XR chest 1V portable [id number] IMPRESSION: No acute cardiopulmonary findings.
[2024-12-26] VITALS (19 sets, daily range): BP systolic 98–192; BP diastolic 49–102; PULSE 60–73; RESP 10–21; TEMP 34.9–36.8; O2SAT 90–99
[2024-12-26 00:38] LABS: Hematocrit 35.9 % (36-47); Hemoglobin 11.50 g/dL (11.27-16.99); Mean Corpuscular HGB Conc 32.0 g/dL (30-55); Mean Corpuscular Hemoglobin 31.5 pg (27-33); Mean Corpuscular Volume 98.4 fl (85-98); Nucleated Red Blood Cells % 0 %; Platelet Count 154 10^3/cmm (157-399); Red Blood Count 3.65 10^6/uL (3.85-5.65); White Blood Count 7.86 10^3/uL (3.29-11.43)
--- NOTE | 2024-12-26 01:06 | CTR_ITS ---
PROCEDURE INFORMATION: Exam: CTA Chest With Contrast Exam date and time: 12/26/2024 1:18 AM Age: 39 years old Clinical indication: Pain and abnormal findings; Abnormal diagnostic tests; Elevated d-dimer; Shortness of breath; Chest pressure; Prior surgery; Surgery date: 6+ months; Surgery type: Gb; C/O cp and SOB with elevated dimer. ; Additional info: SOB chest pain TECHNIQUE: Imaging protocol: Computed tomographic angiography of the chest with contrast. Exam focused on the arteries. 3D rendering (Not supervised by radiologist): MIP and/or 3D reconstructed images were created by the technologist. Radiation optimization: All CT scans at this facility use at least one of these dose optimization techniques: automated exposure control; mA and/or kV adjustment per patient size (includes targeted exams where dose is matched to clinical indication); or iterative reconstruction. Contrast material: OMNI 350; Contrast volume: 50 ml; Contrast route: INTRAVENOUS (IV); COMPARISON: CT angio chest PE protcl [id number] 04/06/2024 2:20 PM RADIATION DOSE METRICS: Total DLP (mGy-cm): 374.21 FINDINGS: Pulmonary arteries: No acute pulmonary embolism. Aorta: No thoracic aortic dissection or aneurysm. Lungs: Left lung volume loss with what appears to be partial left pneumonectomy changes in the posteromedial left hemithorax. Some areas of subsegmental atelectasis bilaterally as well as some mild endobronchial debris in the right lower lobe and mild bronchial wall thickening bilaterally. Calcified granuloma right lower lobe. Pleural spaces: No pneumothorax. No pleural effusion. Heart: Heart size normal. Extensive coronary artery calcifications. Lymph nodes: Chronic granulomatous mediastinal and hilar lymph nodes. Bones/joints: Superior endplate compression deformities at T2 and T3 appear to be associated with Schmorl's nodes and are chronic. Healing left 2nd rib fracture. Soft tissues: No acute finding. CT/CT angio chest PE protcl [id number] IMPRESSION: 1. No acute pulmonary embolism or thoracic aortic dissection. 2. Mild bronchitis with some endobronchial debris in the right lower lobe. 3. Extensive coronary artery calcifications.
--- NOTE | 2024-12-26 01:08 | W.ED.CHESTPA ---
HPI - Chest Pain General: Chief Complaint: Chest Pain Stated Complaint: CP SOB Time Seen by Provider: 12/25/24 23:07 History of Present Illness: 39-year-old female patient presents to the emergency department with substernal chest pain that radiates to her arm and into her neck. Patient states that she is having shortness of breath with this. Patient states she took 2 nitro at home with no relief. Patient has significant cardiac history to include 8 stents. Patient denies any abdominal pain. Patient denies any urinary symptoms. Patient Nuys any cough or congestion. Patient denies any fever Related Data Home Medications ?Medication ?Instructions ?Recorded ?Confirmed clonidine HCl 0.1 mg tablet See Rx Instructions .Route 11/27/23 11/12/24 .COMPLEX PRN Blood Pressure gabapentin 100 mg capsule 100 mg PO TID 12/27/23 11/12/24 insulin glargine 100 unit/mL (3 5 unit SUBCUT QPM 04/06/24 11/12/24 mL) subcutaneous pen (Lantus Solostar U-100 Insulin) clopidogrel 75 mg tablet 75 mg PO DAILY 04/28/24 11/12/24 carvedilol 3.125 mg tablet 3.125 mg PO BID 09/05/24 11/12/24 escitalopram oxalate 10 mg tablet 10 mg PO DAILY 09/07/24 11/12/24 Previous Rx's ?Medication ?Instructions ?Recorded blood-glucose sensor (Dexcom G6 #3 ea 06/12/22 Sensor device) blood-glucose transmitter (Dexcom #1 ea 06/12/22 G6 Transmitter device) blood-glucose,loss prevention lead,cont #1 ea 06/12/22 (Dexcom G6 Tax Compliance Manager) sevelamer carbonate 800 mg tablet 800 mg PO TID #90 tabs 09/16/23 aspirin 81 mg tablet,delayed 81 mg PO QAM 30 days #30 tabs 03/28/24 release atorvastatin 40 mg tablet 40 mg PO BEDTIME 30 days #30 tabs 03/28/24 insulin aspart U-100 100 unit/mL 5 unit (0.05 mL) SUBCUT TID #15 mL 04/11/24 (3 mL) subcutaneous pen (Novolog FlexPen U-100 Insulin aspart) AFO brace #1 ea 04/20/24 diabetic shoes with 3 inserts #1 ea 04/20/24 amlodipine 5 mg tablet 5 mg PO DAILY #30 tabs 09/30/24 bumetanide 1 mg tablet See Rx Instructions .Route 09/30/24 .COMPLEX #60 tabs losartan 50 mg tablet 100 mg (2 x 50 mg) PO DAILY #60 09/30/24 tabs cyclobenzaprine 10 mg tablet 10 mg PO TID #14 tabs 11/10/24 Allergies Allergy/AdvReac Type Severity Reaction Status Date / Time acetaminophen AdvReac Mild ADR-Gastrointestinal Verified 12/25/24 22:25 Upset PFSH ED PFSH: Medical History Headache Accelerated hypertension Uncontrolled type 1 diabetes mellitus ESRD (end stage renal disease) Dialysis complication Hypoglycemia Hemodialysis catheter dysfunction Hyperkalemia Colitis End stage renal disease on dialysis COPD (chronic obstructive pulmonary disease) Diabetes mellitus Transaminitis Intractable nausea and vomiting Hyperlipidemia HTN (hypertension) CHF (congestive heart failure), NYHA class III Pulmonary hypertension CAD (coronary artery disease) Neurogenic bladder COVID-19 Tobacco dependence Drug abuse Anemia Community acquired pneumonia Esophagitis Long-term insulin use History of pancreatitis Celiac disease Recurrent UTI Non-alcoholic fatty liver disease Arnold-Chiari malformation Diabetic gastroparesis -continue Reglan Diabetic neuropathy associated with type 1 diabetes mellitus Headache, common migraine, intractable, with status migrainosus Pleural effusion 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 History of lung surgery -s/p LLL lobectomy secondary to cavitary pneumonia (2017) History of endoscopy History of cholecystectomy Family History Grandfather Diabetes Mother CAD (coronary artery disease) Diabetes Heart disease Hypertension Brother Acute lymphoblastic leukemia (ALL) in child Grandmother Thyroid disease Denies family history of Colon cancer Ovarian cancer Prostate cancer Hyperlipidemia Breast cancer Uterine cancer Stroke Social History Smoking and tobacco/nicotine status: never used tobacco/nicotine Quit status (tobacco/nicotine): has quit using Former quit date comment: She previously smoked <1/2 PPD, quit July 2023. Second hand smoke exposure: Yes Alcohol intake: never Substance/Drug Use: current Household members: children Housing: House Marital status: Single Current occupational status: unemployed Physical Exam Const: COMMON NORMALS: no acute distress, average body habitus, patient oriented x3, no limitations and healthy appearing HENMT: COMMON NORMALS: normocephalic and atraumatic HEAD & SCALP: normocephalic and atraumatic Neck/C-Spine: COMMON NORMALS: full ROM, no lymphadenopathy, supple, no meningeal signs and no JVD Chest: COMMONS NORMALS: normal inspection of the chest and normal palpation of entire chest wall Resp: COMMON NORMALS: normal respiratory effort, No retractions, No use of accessory muscles and clear to auscultation bilaterally AUSCULTATION: clear to auscultation bilaterally Cardio: COMMON NORMALS: no JVD, regular rate and regular rhythm RATE: regular rate RHYTHM: regular rhythm GI: COMMON NORMALS: Normal to inspection, nondistended, normoactive bowel sounds present, Soft to palpation and non-tender PALPATION: Yes Soft to palpation : COMMON NORMALS: Yes no CVA tenderness BLADDER/KIDNEY EXAM: Yes no CVA tenderness Back/Pelvis: COMMON NORMALS: no CVA tenderness, thoracic and lumbar spine normal to inspection, no thoracic nor lumbar tenderness and thoraco-lumbar ROM normal Neuro: COMMON NORMALS: patient oriented x3, CN's II-XII intact bilaterally, moves all extremities, no focal motor deficits and no sensory deficits noted MENINGEAL SIGNS: Yes no meningeal signs Psych: COMMON NORMALS: mental status grossly normal, Normal thought process present, cooperative, normal affect and speech normal SPEECH: Yes normal speech THOUGHT PROCESS: Normal thought process present Skin: COMMON NORMALS: no rashes or lesions noted GENERAL SKIN EXAM: no rashes or lesions noted and elasticity normal Course Vital Signs: Vital signs: Vital Signs Temperature 97.9 F 12/25/24 22:21 Pulse Rate 72 12/25/24 22:21 Respiratory Rate 18 12/25/24 22:21 Blood Pressure 94/58 12/25/24 22:21 Pulse Oximetry 97 12/25/24 22:21 Oxygen Delivery Me thod Room Air 12/25/24 22:21 MDM - Chest Pain Medical Decision Making at home with no relief. Patient has significant cardiac history to include 8 stents, HTN, Type 1 DM. Patient denies any abdominal pain. Patient denies any urinary symptoms. Patient Nuys any cough or congestion. Patient denies any feverGiven patient's significant cardiac history I will order cardiac workup at this time to include chest x-ray I will also order a D-dimer for evaluation of possible pulmonary emboli. Patient's D-dimer was elevated we will go ahead and order CTA chest of the this time. . Patient's delta Trope is pending at this time as well as CTA I will go ahead and transition care to Dr. Womack at this time. I will anticipate patient being in observation chest pain admit given patient's cardiac history Pts baseline trop is 247 and Creatine is 5.9 pt is on diaylsis. Morphine 4mg IV given for continued chest pain. Asa given. If morphine does not relieve chest pain will start on a nitro gtts per Dr. Casper. Heprain protocol started at this time. Pt will be admitted to Dr. Casper at this time. Lab Data 12/26/24 00:31 12/26/24 00:31 Radiology Impressions Chest X-Ray 12/25/24 22:30 IMPRESSION: No acute cardiopulmonary findings. Laboratory Results WBC 7.86 10^3/uL (3.29-11.43) 12/26/24 00: RBC 3.65 10^6/uL (3.85-5.65) L 12/26/24 00:31 Hgb 11.50 g/dL (11.27-16.99) 12/26/24 00: Hct 35.9 % (36-47) L 12/26/24 00: MCV 98.4 fl (85-98) H 12/26/24 00: MCH 31.5 pg (27-33) 12/26/24 00: MCHC 32.0 g/dL (30-55) 12/26/24 00: RDW 13.4 % (12.1-15.1) 12/26/24 00: Plt Count 154 10^3/cmm (157-399) L 12/26/24 00: MPV 10.1 fL (7.4-10.4) 12/26/24 00:31 Neut % (Auto) 66.9 % 12/26/24 00:31 Lymph % (Auto) 19.3 % 12/26/24 00: Glenn % (Auto) 8.9 % 12/26/24 00: Eos % (Auto) 4.1 % 12/26/24 00: Baso % (Auto) 0.5 % 12/26/24 00: Neut # (Auto) 5.26 10^3/uL (1.8-7.7) 12/26/24 00: Lymph # (Auto) 1.5 10^3/uL (0.8-4.8) 12/26/24 00: Glenn # (Auto) 0.7 10^3/uL (0.2-0.9) 12/26/24 00: Eos # (Auto) 0.3 10^3/uL (0.0-0.8) 12/26/24 00: Baso # (Auto) 0.0 10^3/uL (0.0-0.1) 12/26/24 00: Nucleated RBC % (auto) 0 % 12/26/24 00: Nucleated RBCs # 0.0 /100WBC 12/26/24 00: D-Dimer 1.14 ug/mLFEU (0-0.59) H 12/26/24 00:31 Sodium 136 mmol/L (136-145) 12/26/24 00: Potassium 5.9 mmol/L (3.5-5.1) H 12/26/24 00: Chloride 93 mmol/L (98-107) L 12/26/24 00: Carbon Dioxide 28 mmol/L (22-29) 12/26/24 00: Anion Gap 20.9 (5-19) H 12/26/24 00: BUN 36 mg/dL (6-20) H 12/26/24 00: Creatinine 5.9 mg/dL (0.5-0.9) H* 12/26/24 00: GFR Calculation 8.0 mL/min (90-130) L 12/26/24 00: Glucose 114 mg/dL (65-115) 12/26/24 00: Calculated Osmolality 291 mOsm/kg (285-295) 12/26/24 00:31 Calcium 8.6 mg/dL (8.5-10.5) 12/26/24 00:31 Magnesium 2.3 mg/dL (1.7-2.3) 12/26/24 00: Total Bilirubin 0.4 mg/dL (0.15-1.2) 12/26/24 00:31 AST 29 U/L (0-32) 12/26/24 00: ALT 39 U/L (0-33) H 12/26/24 00:31 Alkaline Phosphatase 220 U/L (35-105) H 12/26/24 00: Troponin T Baseline 247 ng/L (0-10) H* 12/26/24 00:31 Total Protein 8.4 g/dL (6.6-8.7) 12/26/24 00: Albumin 4.2 g/dL (3.5-5.2) 12/26/24 00: Globulin 4.2 g/dL (1.3-4.6) 12/26/24 00: Lipase 31 U/L (13-60) 12/26/24 00: TSH 3.38 uIU/mL (0.27-4.20) 12/26/24 00:31 XR interpretation done by ED provider, pending radiology final review Discharge Plan Discharge Patient Disposition: Admitted As Inpatient Clinical Impression: Unstable angina pectoris Condition: Stable Coding Level of Care Code ED Comparison Shopper for Reji Chandler
[2024-12-26 01:11] LABS: Alanine Aminotransferase 39 U/L (0-33); Albumin Level 4.2 g/dL (3.5-5.2); Alkaline Phosphatase 220 U/L (35-105); Anion Gap 20.9 (5-19); Aspartate Amino Transferase 29 U/L (0-32); Blood Urea Nitrogen 36 mg/dL (6-20); Calcium 8.6 mg/dL (8.5-10.5); Carbon Dioxide 28 mmol/L (22-29); Chloride 93 mmol/L (98-107); Creatinine Clr Calc Pharmacy 10.7561; Globulin 4.2 g/dL (1.3-4.6); Glucose 114 mg/dL (65-115); Lipase 31 U/L (13-60); Magnesium 2.3 mg/dL (1.7-2.3); Osmolality Calculated 291 mOsm/kg (285-295); Potassium 5.9 mmol/L (3.5-5.1); Sodium 136 mmol/L (136-145); Thyroid Stimulating Hormone 3.38 uIU/mL (0.27-4.20); Total Protein 8.4 g/dL (6.6-8.7)
[2024-12-26 01:12] LABS: Troponin(5th) Baseline 247 ng/L (0-10)
[2024-12-26] MEDS: iohexol 350 mg/mL 500 mL Btl (per mL) IV (01:30)
[2024-12-26] MEDS: morphine 4 mg/mL SDV 1 mL IVP (01:40)
--- NOTE | 2024-12-26 01:43 | USCV_ITS ---
Donita Aguilar Age: 39 Gender: F : 1985 Exam Date: 12/26/2024 09:12 Ordering Phys: Ana Luisa Casper MD Technologist: Elian Boyer Exam Location: [facility] [place] Indication: nstemi BP: 151 / 78 HR: 63 Rhythm: Sinus Technical Quality: Adequate MEASUREMENTS (Male / Female) Normal Values 2D ECHO LV Diastolic Diameter PLAX 4.8 cm 4.2 - 5.9 / 3.9 - 5.3 cm IVS Diastolic Thickness 1.3 cm 0.6 - 1.0 / 0.6 - 0.9 cm IVS Systolic Thickness 1.5 cm LVPW Diastolic Thickness 1.4 cm 0.6 - 1.0 / 0.6 - 0.9 cm LVPW Systolic Thickness 1.5 cm LVOT Diameter 2.0 cm LV Ejection Fraction 2D Teich 50.1 % LV Ejection Fraction MOD 4C 65.5 % LV Ejection Fraction MOD 2C 65.5 % LV Ejection Fraction 2C AL 65.9 % LA Diameter 3.2 cm RA Systolic Volume 4C AL 22.2 ml RA Systolic Volume 4C MOD 22.1 ml LA Sys Volume AL 49.2 cm cubed LA Sys Volume Index AL 30.3 cm cubed/m squared Aorta at Sinotubular Diameter 2.1 cm IVC Diameter 1.6 cm M-MODE LA Ao Ratio MM 1.7 AV Cusp Separation MM 1.4 cm DOPPLER AV Peak Velocity 148.0 cm/s LVOT Peak Velocity 88.0 cm/s AV Area Cont Eq vti 2.0 cm squared AV Area Cont Eq pk 1.9 cm squared MV Peak Velocity 136.0 cm/s MV Area PHT 4.4 cm squared Mitral E to A Ratio 1.4 TR Peak Velocity 327.0 cm/s TR Peak Gradient 42.8 mmHg TR Mean Velocity 252.0 cm/s TR Mean Gradient 27.8 mmHg TR Velocity Time Integral 113.3 cm PV Peak Velocity 109.3 cm/s RV Ejection Time 0.4 s FINDINGS Left Ventricle Normal left ventricular size, systolic function and wall thickness, with no regional wall motion abnormalities. Left ventricular ejection fraction is estimated at 60 %. Grade II/IV diastolic dysfunction, moderately elevated filling pressures. Right Ventricle The right ventricle is normal in size and function. Right Atrium The right atrium is normal in size. Left Atrium Mildly increased left atrial size. Mitral Valve Structurally normal mitral valve without significant stenosis or prolapse. There is no mitral regurgitation. Aortic Valve Moderate aortic valve calcification. No aortic valve stenosis. Trace aortic valve regurgitation. Tricuspid Valve Mild tricuspid valve regurgitation. Pulmonic Valve Mild pulmonary valve regurgitation. Pericardium Normal pericardium without effusion. Aorta Normal ascending aorta dimension. IVC The inferior vena cava appears normal. CONCLUSIONS Normal left ventricular size, systolic function and wall thickness, with no regional wall motion abnormalities. Left ventricular ejection fraction is estimated at 60 %. Grade II/IV diastolic dysfunction, moderately elevated filling pressures. Moderate aortic valve calcification. No aortic valve stenosis. Trace aortic valve regurgitation. There is no pericardial effusion. Right atrial pressure is around 5 mm of mercury. Austin Gallegos MD (Electronically Signed) Final Date: 26 December 2024 17:08 S
[2024-12-26] MEDS: heparin drip 25,000 UNIT/500 ML PREMIX 15.24 UNIT IV (01:46)
--- NOTE | 2024-12-26 01:48 | PM.HP ---
Providers/Chief Complaint Admitting Physician: Ana Luisa Casper MD--patient seen after 12 midnight Primary Care Provider: SUZANNE Dias Chief Complaint: CP SOB History of Present Illness Donita Aguilar is a 39 year old female with medical history significant for coronary artery disease who had had a myocardial infarction and had had a total of 8 stents at different times. Patient presents because of chest pains. Initial troponin was 247. Patient received 4 mg of IV morphine and that took the pain a way upon her arrival to the emergency room. Patient has NSTEMI. Cardiology has been consulted Case discussed with Dr. Gallegos. Patient is also end-stage renal disease on chronic hemodialysis and today heparin to be the day of scheduled hemodialysis and had not missed any dialysis prior to today. I have also consulted Dr. quiroz light rail transit operator for hemodialysis of this patient. The patient's lab overnight did not have any chest pain in-house. Patient is placed on heparin drip. EKG did not show any acute process Patient with chest pain with much elevation of troponin though in the setting of renal disease this of all merits inpatient care. Review of Systems Narrative: System review upon 10 organ review we are entirely unremarkable except for cardiovascular significant for chest pain and renal system significant for chronic renal failure. Medications/Allergies Home Medications ?Medication ?Instructions ?Recorded ?Confirmed ?Last Taken ?Type blood-glucose sensor (Dexcom G6 #3 ea 06/12/22 12/26/24 Unknown Rx Sensor device) blood-glucose transmitter (Dexcom #1 ea 06/12/22 12/26/24 Unknown Rx G6 Transmitter device) blood-glucose,retail support manager,cont #1 ea 06/12/22 12/26/24 Unknown Rx (Dexcom G6 Manager Non Profit) sevelamer carbonate 800 mg tablet 800 mg PO TID #90 tabs 09/16/23 12/26/24 09/26/24 Rx clonidine HCl 0.1 mg tablet See Rx Instructions .Route 11/27/23 12/26/24 Unknown History .COMPLEX PRN Blood Pressure gabapentin 100 mg capsule 100 mg PO TID 12/27/23 12/26/24 09/26/24 History aspirin 81 mg tablet,delayed 81 mg PO QAM 30 days #30 tabs 03/28/24 12/26/24 09/26/24 Rx release atorvastatin 40 mg tablet 40 mg PO BEDTIME 30 days #30 tabs 03/28/24 12/26/24 09/25/24 Rx insulin aspart U-100 100 unit/mL 5 unit (0.05 mL) SUBCUT TID #15 mL 04/11/24 12/26/24 09/26/24 Rx (3 mL) subcutaneous pen (Novolog FlexPen U-100 Insulin aspart) AFO brace #1 ea 04/20/24 12/26/24 Unknown Rx diabetic shoes with 3 inserts #1 ea 04/20/24 12/26/24 Unknown Rx clopidogrel 75 mg tablet 75 mg PO DAILY 04/28/24 12/26/24 09/26/24 History carvedilol 3.125 mg tablet 3.125 mg PO BID 09/05/24 12/26/24 09/26/24 History escitalopram oxalate 10 mg tablet 10 mg PO DAILY 09/07/24 12/26/24 09/26/24 History amlodipine 5 mg tablet 5 mg PO DAILY #30 tabs 09/30/24 12/26/24 Unknown Rx bumetanide 1 mg tablet See Rx Instructions .Route 09/30/24 12/26/24 09/06/24 Rx .COMPLEX #60 tabs losartan 50 mg tablet 100 mg (2 x 50 mg) PO DAILY #60 09/30/24 12/26/24 Unknown Rx tabs cyclobenzaprine 10 mg tablet 10 mg PO TID #14 tabs 11/10/24 12/26/24 Unknown Rx Allergies Allergy/AdvReac Type Severity Reaction Status Date / Time acetaminophen AdvReac Mild ADR-Gastrointestinal Verified 12/25/24 22:25 Upset PFSH Acute PFSH: Medical History Headache Accelerated hypertension Uncontrolled type 1 diabetes mellitus ESRD (end stage renal disease) Dialysis complication Hypoglycemia Hemodialysis catheter dysfunction Hyperkalemia Colitis End stage renal disease on dialysis COPD (chronic obstructive pulmonary disease) Diabetes mellitus Transaminitis Intractable nausea and vomiting Hyperlipidemia HTN (hypertension) CHF (congestive heart failure), NYHA class III Pulmonary hypertension CAD (coronary artery disease) Neurogenic bladder COVID-19 Tobacco dependence Drug abuse Anemia Community acquired pneumonia Esophagitis Long-term insulin use History of pancreatitis Celiac disease Recurrent UTI Non-alcoholic fatty liver disease Arnold-Chiari malformation Diabetic gastroparesis -continue Reglan Diabetic neuropathy associated with type 1 diabetes mellitus Headache, common migraine, intractable, with status migrainosus Pleural effusion 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 History of lung surgery -s/p LLL lobectomy secondary to cavitary pneumonia (2017) History of endoscopy History of cholecystectomy Family History Grandfather Diabetes Mother CAD (coronary artery disease) Diabetes Heart disease Hypertension Brother Acute lymphoblastic leukemia (ALL) in child Grandmother Thyroid disease Denies family history of Colon cancer Ovarian cancer Prostate cancer Hyperlipidemia Breast cancer Uterine cancer Stroke Social History Smoking and tobacco/nicotine status: never used tobacco/nicotine Quit status (tobacco/nicotine): has quit using Former quit date comment: She previously smoked <1/2 PPD, quit July 2023. Second hand smoke exposure: Yes Alcohol intake: never Substance/Drug Use: current Household members: children Housing: House Marital status: Single Current occupational status: unemployed Vitals/I&O/Wt Last Vital Signs Temp 97.9 F 12/25/24 22:21 Pulse 72 12/25/24 22:21 Resp 18 12/26/24 01:40 BP 94/58 12/25/24 22:21 Pulse Ox 97 12/25/24 22:21 O2 Del Method Room Air 12/25/24 22:21 Weight last 48 hrs Weight 63.503 kg Physical Exam Narrative: Generally patient is chest pain-free upon my evaluation of the patient in the emergency room pain was resolved upon giving patient 4 mg of IV morphine HEENT normocephalic/atraumatic Neck neck is supple Cardiovascular heart rate is regular, no murmurs no gallops Pulmonary-lungs are clear no adventitious breath sounds Abdomen is soft nontender nondistended has good bowel sounds unremarkable for little or no output significant for renal failure Extremities are intact no edema has good pulses Neurology has no focality lab studies lab studies reviewed and noted. Data 12/26/24 03:20 12/26/24 03:20 Micro: Patient was seen after 12 midnight A&P Assessment and plan (1) NSTEMI (non-ST elevated myocardial infarction): Patient had instant chest pain soon after she had experienced abrupt drop in her blood sugar via insulin therapy Upon arriving to the emergency room 4 mg of IV morphine resolved the pain instantly Patient is a renal patient initial troponin was 247, NSTEMI still cannot be ruled out in a patient with cardiac problem Patient received full aspirin of 325 mg and heparin drip was started with cardiology consultation with Dr. Gallegos Case discussed with him regarding the patient and he is going to see the patient. Patient placed n.p.o. (2) HyperCKemia: Patient received 45 g of Kayexalate while awaiting hemodialysis today for a potassium of 6.6. Patient also received an amp of calcium gluconate. EKG did not have any changes that is undesired. (3) End stage renal disease on dialysis: Patient is end-stage renal disease on chronic hemodialysis - Alysis days are Tuesdays and Saturdays and patient is scheduled to have hemodialysis today. Had not missed prior hemodialysis. Nephrology will be seeing the patient today for dialysis (4) Uncontrolled type 1 diabetes mellitus: Patient is diabetic must keep euglycemic with insulin. (5) Accelerated hypertension: Accelerated blood pressure must continue to treat and optimize Plan GI and DVT prophylaxis in place PDMP PDMP Reviewed: Last Reviewed 12/26/24 08:02 by Ana Luisa Casper MD Attestations Medical Necessity Statement*: Patient with chest pain and much elevated troponin though in the setting of renal failure with cardiac disease with coronary artery stent placement in the past. Patient deserves inpatient stay for care Coding Level of Care Code 42435 Diagnoses NSTEMI (non-ST elevated myocardial infarction) I21.4 HyperCKemia R74.8 End stage renal disease on dialysis N18.6; Z99.2 Uncontrolled type 1 diabetes mellitus with hyperglycemia E10.65 Glycemic state: with hyperglycemia Accelerated hypertension I10 Time Spent (min) 60
[2024-12-26 02:08] LABS: Estmated Average Glucose 140; Hemoglobin A1C 6.5 % (4.0-6.0)
[2024-12-26 04:18] LABS: Hematocrit 34.6 % (36-47); Hemoglobin 10.70 g/dL (11.27-16.99); Mean Corpuscular HGB Conc 30.9 g/dL (30-55); Mean Corpuscular Hemoglobin 30.9 pg (27-33); Mean Corpuscular Volume 100.0 fl (85-98); Nucleated Red Blood Cells % 0 %; Platelet Count 153 10^3/cmm (157-399); Red Blood Count 3.46 10^6/uL (3.85-5.65); White Blood Count 8.38 10^3/uL (3.29-11.43)
[2024-12-26 04:45] LABS: Troponin 5 2HR 216.7 ng/L (0-10); Troponin 5 2HR Delta -30.3 ABS# (0-10)
[2024-12-26 04:47] LABS: Alanine Aminotransferase 34 U/L (0-33); Albumin Level 3.7 g/dL (3.5-5.2); Alkaline Phosphatase 202 U/L (35-105); Aspartate Amino Transferase 25 U/L (0-32); Blood Urea Nitrogen 39 mg/dL (6-20); Calcium 8.2 mg/dL (8.5-10.5); Carbon Dioxide 24 mmol/L (22-29); Chloride 93 mmol/L (98-107); Cholesterol 97 mg/dL (0-200); Creatinine Clr Calc Pharmacy 10.7561; Globulin 3.8 g/dL (1.3-4.6); Glucose 161 mg/dL (65-115); HDL Cholesterol 63 mg/dL (60-100); Osmolality Calculated 289 mOsm/kg (285-295); Sodium 133 mmol/L (136-145); Thyroid Stimulating Hormone 2.75 uIU/mL (0.27-4.20); Total Protein 7.5 g/dL (6.6-8.7); Triglycerides 55 mg/dL (0-150)
[2024-12-26 04:56] LABS: Anion Gap 22.6 (5-19)
[2024-12-26 04:59] LABS: Potassium 6.6 mmol/L (3.5-5.1)
[2024-12-26] MEDS: calcium gluconate 0.9% NaCL 1 GM/50 ML PREMIX IV (05:27)
[2024-12-26] MEDS: morphine 4 mg/mL SDV 1 mL 2 MG IVP ×4 (05:36→21:45)
[2024-12-26 07:21] LABS: Partial Thromboplastin Time 45.9 SECONDS (23.9-36.7)
[2024-12-26] MEDS: heparin drip 25,000 UNIT/500 ML PREMIX 16 UNIT IV (08:29)
[2024-12-26 08:30] LABS: Hepatitis B Surface Antigen Non-Reactive (Nonreactive)
[2024-12-26] MEDS: insulin regular-human 100 units/1 mL 10 UNIT IVP (10:07)
--- NOTE | 2024-12-26 10:33 | PC.CHAP ---
Pastoral Care Encounter/Spiritual Assessment Type of Contact [] Declined hospital food service worker visit [] Patient/Family/Request visit [] Outpatient visit [] Follow-up visit [] Physician referral [] Code/Alert [x] Routine visit [] Staff referral [] Actively dying [] Patient sleeping [] Family support [] [] Out of room [] Palliative care [] [x] Receiving care in room [] Pre-surgical visit [] Trauma [] Long length of stay [] ICU visit [] Other: Relational/Emotional Strength [] Patient feels connected with others/family/visitors/staff [] Distress [] Loneliness/isolation [] Abandonment Spirituality of Patient [] Person of Marly [] Attends Mormon of their [place] [] Believes in Prayer [] Reads Bible or Oriental Orthodox materials [] There are Spiritual issues to be addressed Precipitator Supervisor Interventions [] Prayer [] Active listening [] Non-anxious presence [] Spiritual/emotional support [] Crisis/trauma care [] Spiritual counseling [] Bereavement support [] Provided bereavement packet [] Provided Bible/devotional materials [] Provided toy/stuffed animal, coloring book to patient or family member [] Provided Communion [] Anointing/[place] [] Salvation [] Completed spiritual assessment [] Other: Impact on Illness or Injury [] Angry [] Fearful [] Anxious [] Often cries [] Exhaustion [] Unable to work [] Unable to attend hoahaoism [] Unable to walk/stand [] Unable to read [] Unable to drive [] Unable to eat/drink [] Unable to sleep [] Unable to be with family [] Patient intubated [] Other: Summary Time spent with patient
--- NOTE | 2024-12-26 12:11 | PC.NURSE ---
hypoglycemia Round 1115Am pt's blood sugar came down to 52. she was symptomatic,lethargic but able to be awaken and drink oral 8 ounces of orange juice. she previously had ham sandwich, had bolus of d10w as ordered x1 along w/ humulin r 10 U awhile ago, diet coke soda. BG recheck at 1140AM- 59. gave 8 ounce OJ, 2 cups of ice creams, 2 puddings. BG recheck at 1155- 102
--- NOTE | 2024-12-26 12:41 | P.PN_ITS ---
Subjective 2 Subjective: Patient was seen this morning, she is alert oriented x 3, following all commands, denies any shortness of breath, no nausea, no vomiting, does report chest pain but none since this morning, Discussed her hyperkalemia potassium 6.6, she has received calcium gluconate, will order insulin, D10 for hyperkalemia, Blood sugars are 59, advised nurse to give another D10 drip, glucagon, Spoke to nephrology, plan on dialysis Vitals/I&O/Wt Last Vital Signs Temp 96.9 F L 12/26/24 07:14 Pulse 63 12/26/24 12:00 Resp 13 12/26/24 12:00 BP 138/78 12/26/24 12:00 Pulse Ox 97 12/26/24 12:00 O2 Del Method Room Air 12/26/24 02:48 12/25/24 12/26/24 12/26/24 22:59 06:59 14:59 Intake Total 50 / 50 602.616 / 602.616 Balance 50 / 50 602.616 / 602.616 Weight last 48 hrs Weight 63.503 kg Weight 63.503 kg Weight 63.503 kg Physical Exam 2 Const: COMMON NORMALS: no acute distress and patient oriented x3 Resp: COMMON NORMALS: normal respiratory effort, No retractions, No use of accessory muscles and clear to auscultation bilaterally AUSCULTATION: clear to auscultation bilaterally Cardio: COMMON NORMALS: regular rate, regular rhythm, S1 normal heart sound present and S2 normal heart sound present RATE: regular rate RHYTHM: r egular rhythm HEART SOUNDS: S1 normal heart sound present and S2 normal heart sound present GI: COMMON NORMALS: Normal to inspection, nondistended, normoactive bowel sounds present and non-tender Extremity: COMMON NORMALS: no pedal edema Neuro: COMMON NORMALS: patient oriented x3 Psych: COMMON NORMALS: mental status grossly normal Data 12/26/24 03:20 12/26/24 03:20 A&P Assessment and plan (1) NSTEMI (non-ST elevated myocardial infarction): - Cardiac catheterization 09/2024 . 1. Left main has luminal irregularity with distal 10% stenosis #2 LAD has luminal irregularity with patent previously placed proximal stent with mild in-stent restenosis #3 LCx has luminal irregularity without significant in-stent restenosis in ostial to proximal stent #4 RCA is moderate size and caliber vessel which is dominant has proximal 40% stenosis, there is also distal 40% in-stent restenosisLVEDP was moderately elevated 22 mmHgLV gram was not performed. Plan - Aspirin, statin, Coreg, heparin drip - Potential chest pain, NSTEMI related to hyperkalemia, plan urgent dialysis - Monitor for chest pain (2) HyperCKemia: (3) End stage renal disease on dialysis: Patient is end-stage renal disease on chronic hemodialysis - Alysis days are Tuesdays and Saturdays and patient is scheduled to have hemodialysis today. Had not missed prior hemodialysis. Nephrology will be seeing the patient today for dialysis (4) Uncontrolled type 1 diabetes mellitus: Low-dose insulin sliding scale (5) Accelerated hypertension: Will resume blood pressure medications (6) Hyperkalemia: - Status post insulin, D10, calcium gluconate, Kayexalate - Plan for urgent dialysis (7) Pneumonia: Plan Hypoglycemia, encourage p.o. intake, hypoglycemia protocol Pneumonia, CT/CT angio chest PE protcl [id number] IMPRESSION: 1. No acute pulmonary embolism or thoracic aortic dissection. 2. Mild bronchitis with some endobronchial debris in the right lower lobe. 3. Extensive coronary artery calcifications. Plan - Concerns for possible aspiration? - Aspiration precautions - Speech therapy eval - Rocephin GI and DVT prophylaxis in place PDMP PDMP Reviewed: Not Reviewed Attestations 2 Medical Necessity Statement*: Patient requires hospitalization for NSTEMI, hyperkalemia, pneumonia Diagnoses NSTEMI (non-ST elevated myocardial infarction) I21.4 HyperCKemia R74.8 End stage renal disease on dialysis N18.6; Z99.2 Uncontrolled type 1 diabetes mellitus with hyperglycemia E10.65 Glycemic state: with hyperglycemia Accelerated hypertension I10 Hyperkalemia E87.5 Pneumonia J18.9
[2024-12-26] MEDS: diphenhydrAMINE 50 mg/mL SDV 1mL IVP (12:43)
[2024-12-26 13:18] LABS: Anion Gap 22.6 (5-19); Blood Urea Nitrogen 33 mg/dL (6-20); Calcium 8.3 mg/dL (8.5-10.5); Carbon Dioxide 21 mmol/L (22-29); Chloride 93 mmol/L (98-107); Creatinine Clr Calc Pharmacy 11.9738; Glucose 155 mg/dL (65-115); Osmolality Calculated 284 mOsm/kg (285-295); Potassium 4.6 mmol/L (3.5-5.1); Sodium 132 mmol/L (136-145)
[2024-12-26 13:45] LABS: Partial Thromboplastin Time 233.8 SECONDS (23.9-36.7)
--- NOTE | 2024-12-26 13:45 | PC.NURSE ---
Called HD nurse Talked to Bronwyn RN in dialysis to pause her Heparin drip in dialysis. Bronwyn paused it. and Received order from doctor Debi to recheck PTT in 4hrs.
--- NOTE | 2024-12-26 14:47 | PM.CONSULT ---
Providers/Reason For Consult Consulting Physician/Specialty*: Austin Gallegos MD/interventional cardiology Reason for Consult*: Chest pain Requesting Physician: Dr. Alex Attending Physician: Shola Carrera MD Primary Care Provider: SUZANNE Dias History of Present Illness History of Present Illness Donita Aguilar is a 39 year old female past medical history significant for extensive history of coronary artery disease atherosclerosis process premature CAD hypertension hyperlipidemia chronic kidney disease on dialysis had multiple angiogram in the past last angiogram was in September 2024 which showed patent previously placed stents without any significant in-stent restenosis. Patient presented with fatigue chest pain shortness of breath last night noted to be hyperkalemic potassium was 6.6. Troponin was elevated which is at her baseline due to reduced renal clearance. Twelve-lead EKG is not suggestive of any ST?T changes according to the patient she feels chest pain upon deep inspiration and is different from when she had a heart attack. She appeared to be sleepy. She is in dialysis right now. Medications/Allergies Home Medications ?Medication ?Instructions ?Recorded ?Confirmed ?Last Taken ?Type blood-glucose sensor (Dexcom G6 #3 ea 06/12/22 12/26/24 Unknown Rx Sensor device) blood-glucose transmitter (Dexcom #1 ea 06/12/22 12/26/24 Unknown Rx G6 Transmitter device) blood-glucose,neuropsychology medical consultant,cont #1 ea 06/12/22 12/26/24 Unknown Rx (Dexcom G6 Buzzle Buffer) sevelamer carbonate 800 mg tablet 800 mg PO TID #90 tabs 09/16/23 12/26/24 09/26/24 Rx clonidine HCl 0.1 mg tablet See Rx Instructions .Route 11/27/23 12/26/24 Unknown History .COMPLEX PRN Blood Pressure gabapentin 100 mg capsule 100 mg PO TID 12/27/23 12/26/24 09/26/24 History aspirin 81 mg tablet,delayed 81 mg PO QAM 30 days #30 tabs 03/28/24 12/26/24 09/26/24 Rx release atorvastatin 40 mg tablet 40 mg PO BEDTIME 30 days #30 tabs 03/28/24 12/26/24 09/25/24 Rx insulin aspart U-100 100 unit/mL 5 unit (0.05 mL) SUBCUT TID #15 mL 04/11/24 12/26/24 09/26/24 Rx (3 mL) subcutaneous pen (Novolog FlexPen U-100 Insulin aspart) AFO brace #1 ea 04/20/24 12/26/24 Unknown Rx diabetic shoes with 3 inserts #1 ea 04/20/24 12/26/24 Unknown Rx clopidogrel 75 mg tablet 75 mg PO DAILY 04/28/24 12/26/24 09/26/24 History carvedilol 3.125 mg tablet 3.125 mg PO BID 09/05/24 12/26/24 09/26/24 History escitalopram oxalate 10 mg tablet 10 mg PO DAILY 09/07/24 12/26/24 09/26/24 History amlodipine 5 mg tablet 5 mg PO DAILY #30 tabs 09/30/24 12/26/24 Unknown Rx bumetanide 1 mg tablet See Rx Instructions .Route 09/30/24 12/26/24 09/06/24 Rx .COMPLEX #60 tabs losartan 50 mg tablet 100 mg (2 x 50 mg) PO DAILY #60 09/30/24 12/26/24 Unknown Rx tabs cyclobenzaprine 10 mg tablet 10 mg PO TID #14 tabs 11/10/24 12/26/24 Unknown Rx Allergies Allergy/AdvReac Type Severity Reaction Status Date / Time acetaminophen AdvReac Mild ADR-Gastrointestinal Verified 12/25/24 22:25 Upset Current Medications Generic Name Dose Route Start Last Admin Trade Name Jan PRN Reason Stop Dose Admin Aspirin 325 mg 12/26/24 09:00 12/26/24 09:13 Aspirin 325 Mg Ec Tablet PO 325 mg DAILY SHAY Administration Bumetanide 1 mg 12/26/24 11:30 12/26/24 11:41 Bumetanide 1 Mg Tablet PO Not Given BID SHAY Clopidogrel Bisulfate 75 mg 12/26/24 09:00 12/26/24 09:13 Clopidogrel 75 Mg Tablet PO 75 mg DAILY SHAY Administration Docusate Sodium 100 mg 12/26/24 09:00 12/26/24 09:13 Docusate Sodium 100 Mg Capsule PO 100 mg BID SHAY Administration Gabapentin 100 mg 12/26/24 09:00 12/26/24 09:13 Gabapentin 100 Mg Capsule PO 100 mg TID SHAY Administration Albumin Human 12.5 gm in 50 mls @ 60 mls/hr 12/26/24 07:44 12/26/24 13:33 Albumin IV 120 mls/hr PRN PRN Administration Hypotension and/or symptomatic Heparin Sodium/Sodium Chloride 25,000 unit in 500 mls @ 0 mls/hr 12/26/24 08:15 12/26/24 13:47 Heparin Drip IV 0 unit/kg/hr CONT SHAY 0 mls/hr Protocol Titration Per Protocol Insulin Human Lispro 0 unit 12/26/24 12:00 12/26/24 11:44 Insulin Lispro 100 Unit/1 Ml SUBCUT Not Given [facility] Protocol Morphine Sulfate 2 mg 12/26/24 01:27 12/26/24 09:13 Morphine 4 Mg/Ml Sdv 1 Ml IVP 2 mg Q4H PRN Administration SEVERE PAIN Pantoprazole Sodium 40 mg 12/26/24 09:00 12/26/24 09:[address] 40 Mg Tablet PO 40 mg DAILY SHAY Administration PFSH Acute PFSH: Medical History (Updated 12/26/24 @ 14:52 by Austin Gallegos MD) HTN (hypertension), benign Hyperkalemia Headache Accelerated hypertension Uncontrolled type 1 diabetes mellitus ESRD (end stage renal disease) Dialysis complication Hypoglycemia Hemodialysis catheter dysfunction Colitis End stage renal disease on dialysis COPD (chronic obstructive pulmonary disease) Diabetes mellitus Transaminitis Intractable nausea and vomiting Hyperlipidemia HTN (hypertension) CHF (congestive heart failure), NYHA class III Pulmonary hypertension CAD (coronary artery disease) Neurogenic bladder COVID-19 Tobacco dependence Drug abuse Anemia Community acquired pneumonia Esophagitis Long-term insulin use History of pancreatitis Celiac disease Recurrent UTI Non-alcoholic fatty liver disease Arnold-Chiari malformation Diabetic gastroparesis -continue Reglan Diabetic neuropathy associated with type 1 diabetes mellitus Headache, common migraine, intractable, with status migrainosus Pleural effusion 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 History of lung surgery -s/p LLL lobectomy secondary to cavitary pneumonia (2017) History of endoscopy History of cholecystectomy Family History Grandfather Diabetes Mother CAD (coronary artery disease) Diabetes Heart disease Hypertension Brother Acute lymphoblastic leukemia (ALL) in child Grandmother Thyroid disease Denies family history of Colon cancer Ovarian cancer Prostate cancer Hyperlipidemia Breast cancer Uterine cancer Stroke Social History Smoking and tobacco/nicotine status: never used tobacco/nicotine Quit status (tobacco/nicotine): has quit using Former quit date comment: She previously smoked <1/2 PPD, quit July 2023. Second hand smoke exposure: Yes Alcohol intake: never Substance/Drug Use: current Household members: children Housing: House Marital status: Single Current occupational status: unemployed Vitals/I&O/Wt Last Vital Signs Temp 97.2 F L 12/26/24 12:38 Pulse 64 12/26/24 12:38 Resp 16 12/26/24 12:38 BP 142/77 12/26/24 12:38 Pulse Ox 97 12/26/24 12:00 O2 Del Method Room Air 12/26/24 02:48 12/25/24 12/26/24 12/26/24 22:59 06:59 14:59 Intake Total 50 / 50 737.416 / 737.416 Balance 50 / 50 737.416 / 737.416 Weight last 48 hrs Weight 140 lb Weight 140 lb Weight 140 lb Physical Exam Const: OTHER: GENERAL: Patient is sleepy fatigue open her eyes talk to me but then go back to sleep, she is getting dialysis now HEART: Regular S1 and S2. No murmur, rub or gallop. LUNGS: Clear to auscultate bilaterally. CENTRAL NERVOUS SYSTEM: Grossly nonfocal. EXTREMITIES: Lower extremities with out edema bilaterally. Data 12/26/24 03:20 12/26/24 12:31 A&P Assessment and plan (1) HyperCKemia: (2) Atypical chest pain: (3) ESRD (end stage renal disease): (4) Atherosclerotic heart disease of wiyot coronary artery with other forms of angina pectoris: (5) HTN (hypertension), benign: Plan Patient chest pain is atypical mostly pleuritic in nature possibly due to uremic pericarditis, elevated cardiac marker troponin or baseline for patient due to underlying renal reduced clearance. Will continue to monitor the patient Add hydralazine for better blood pressure control Continue aspirin statin beta-marii and clopidogrel. At this point no indication for left heart cath. Hopefully after dialysis electrolyte balance will improve along with uremia will reassess the patient PDMP PDMP Reviewed: Not Reviewed Consult Attestations Medical Necessity Statement: Require continuation of hospitalization for above defined care. Coding Level of Care Code Acute Code for Chg Fwd Diagnoses HyperCKemia R74.8 Atypical chest pain R07.89 ESRD (end stage renal disease) N18.6 Atherosclerotic heart disease of wiyot coronary artery with other forms of angina pectoris I25.118 HTN (hypertension), benign I10
--- NOTE | 2024-12-26 15:23 | PC.NURSE ---
Still in Hemodialysis department
--- NOTE | 2024-12-26 16:56 | P.CONIM_ITS ---
Providers/Reason For Consult 2 Consulting Physician/Specialty*: kommana/Nephrology Reason for Consult*: esrd Attending Physician: Shola Carrera MD Primary Care Provider: SUZANNE Dias History of Present Illness History of Present Illness Donita Aguilar is a 39 year old female Patient is a 39-year-old female with with past medical history of end-stage renal disease and coronary artery disease with multiple stents scented to the emergency department complaining of chest pain and shortness of breath. Noted to have elevated troponin and cardiology was consulted. Lab data significant for potassium of .6. patient on TTS schedule as outpatient for dialysis. Review of Systems 2 Narrative: Other review of systems negative Medications/Allergies Home Medications ?Medication ?Instructions ?Recorded ?Confirmed ?Last Taken ?Type blood-glucose sensor (Dexcom G6 #3 ea 06/12/22 5 Unknown Rx Sensor device) blood-glucose transmitter (Dexcom #1 ea 06/12/2212/26 Unknown Rx G6 Transmitter device) blood-glucose,instructional services librarian,cont #1 ea 06/12/22 12/26/24 Un known Rx (Dexcom G6 Biodiesel Plant Manager) sevelamer carbonate 800 mg tablet 800 mg PO TID #90 ta bs 09/16/23 12/26/24 09/26/24 Rx clonidine HCl 0.1 mg tablet See Rx Instructions .Route 11/27/23 12/26/24 Unknown History .COMPLEX PRN Blood Pressure gabapentin 100 mg capsule 100 mg PO TID 12/27/2312/2609/26/24 History aspirin 81 mg tablet,delayed 81 mg PO QAM 30 days #30 tabs 03/28/24 12/26/24 09/26/24 Rx release atorvastatin 40 mg tablet 40 mg PO BEDTIME 30 days #30 tabs 03/28/24 12/26/24 09/25/24 Rx insulin aspart U-100 100 unit/mL 5 unit (0.05 mL) SUBC UT TID #15 mL 04/11/24 12/26/24 09/26/24 Rx (3 mL) subcutaneous pen (Novolog FlexPen U-100 Insulin aspart) AFO brace #1 ea 04/20/24 12/26/24 Unkn own Rx diabetic shoes with 3 inserts #1 ea 04/20/24 12/26/24 Unknown Rx clopidogrel 75 mg tablet 75 mg PO DAILY 04/28/24/11/1509/26/24 History carvedilol 3.125 mg tablet 3.125 mg PO BID 09/05/2409/26/24 History escitalopram oxalate 10 mg tablet 10 mg PO DAILY 09/0712/26/24 09/26/24 History amlodipine 5 mg tablet 5 mg PO DAILY #30 tabs 09/3012/26/24 Unknown Rx bumetanide 1 mg tablet See Rx Instructions .Route 0 09/30/24 12/26/24 09/06/24 Rx .COMPLEX #60 tabs losartan 50 mg tablet 100 mg (2 x 50 mg) PO DAILY #60 09/30/24 12/26/24 Unknown Rx tabs cyclobenzaprine 10 mg tablet 10 mg PO TID #14 tabs 12/26/24 Unknown Rx Allergies Allergy/AdvReac Type Severity Reaction Status Date / Time acetaminophen AdvReac Mild ADR-Gastrointestinal Verified 12/25/24 22:25 Upset Current Medications Generic Name Dose Route Start Last Admin Trade Name Freq PRN Reason Stop Dose Admin Aspirin 325 mg 12/26/24 09:00 12/26/24 09:13 Aspirin 325 Mg Ec Tablet PO 325 mg DAILY SHAY Administration Bumetanide 1 mg 12/26/24 11:30 12/26/24 15:53 Bumetanide 1 Mg Tablet PO Not Given BID SHAY Clopidogrel Bisulfate 75 mg 12/26/24 09:00 12/26/24 09:13 Clopidogrel 75 Mg Tablet PO 75 mg DAILY SHAY Administration Docusate Sodium 100 mg 12/26/24 09:00 12/26/24 09:13 Docusate Sodium 100 Mg Capsule PO 100 mg BID SHAY Administration Gabapentin 100 mg 12/26/24 09:00 12/26/24 09:13 Gabapentin 100 Mg Capsule PO 100 mg TID SHAY Administration Hydralazine HCl 25 mg 12/26/24 15:00 12/26/24 16:43 Hydralazine 25 Mg Tablet PO Not Given TID SHAY Albumin Human 12.5 gm in 50 mls @ 60 mls/hr 12/26/24 07:44 12/26/24 16:48 Albumin IV Infused PRN PRN Infusion Hypotension and/or symptomatic Heparin Sodium/Sodium Chloride 25,000 unit in 500 mls @ 0 mls/hr 12/26/24 08:15 12/26/24 13:47 Heparin Drip IV 0 unit/kg/hr CONT SHAY 0 mls/hr Protocol Titration Per Protocol Insulin Human Lispro 0 unit 12/26/24 12:00 12/26/24 11:44 Insulin Lispro 100 Unit/1 Ml SUBCUT Not Given [facility] Protocol Morphine Sulfate 2 mg 12/26/24 01:27 12/26/24 09:13 Morphine 4 Mg/Ml Sdv 1 Ml IVP 2 mg Q4H PRN Administration SEVERE PAIN Pantoprazole Sodium 40 mg 12/26/24 09:00 12/26/24 09:[address] 40 Mg Tablet PO 40 mg DAILY SHAY Administration PFSH Acute 2 PFSH: Medical History (Updated 12/26/24 @ 14:52 by Austin Gallegos MD) HTN (hypertension), benign Hyperkalemia Headache Accelerated hypertension Uncontrolled type 1 diabetes mellitus ESRD (end stage renal disease) Dialysis complication Hypoglycemia Hemodialysis catheter dysfunction Colitis End stage renal disease on dialysis COPD (chronic obstructive pulmonary disease) Diabetes mellitus Transaminitis Intractable nausea and vomiting Hyperlipidemia HTN (hypertension) CHF (congestive heart failure), NYHA class III Pulmonary hypertension CAD (coronary artery disease) Neurogenic bladder COVID-19 Tobacco dependence Drug abuse Anemia Community acquired pneumonia Esophagitis Long-term insulin use History of pancreatitis Celiac disease Recurrent UTI Non-alcoholic fatty liver disease Arnold-Chiari malformation Diabetic gastroparesis -continue Reglan Diabetic neuropathy associated with type 1 diabetes mellitus Headache, common migraine, intractable, with status migrainosus Pleural effusion 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 History of lung surgery -s/p LLL lobectomy secondary to cavitary pneumonia (2017) History of endoscopy History of cholecystectomy Family History Grandfather Diabetes Mother CAD (coronary artery disease) Diabetes Heart disease Hypertension Brother Acute lymphoblastic leukemia (ALL) in child Grandmother Thyroid disease Denies family history of Colon cancer Ovarian cancer Prostate cancer Hyperlipidemia Breast cancer Uterine cancer Stroke Social History Smoking and tobacco/nicotine status: never used tobacco/nicotine Quit status (tobacco/nicotine): has quit using Former quit date comment: She previously smoked <1/2 PPD, quit July 2023. Second hand smoke exposure: Yes Alcohol intake: never Substance/Drug Use: current Household members: children Housing: House Marital status: Single Current occupational status: unemployed Vitals/I&O/Wt Last Vital Signs Temp 94.8 F L 12/26/24 15:45 Pulse 61 12/26/24 15:45 Resp 16 12/26/24 15:45 BP 115/65 12/26/24 15:45 Pulse Ox 97 12/26/24 12:00 O2 Del Method Room Air 12/26/24 02:48 12/26/24 12/26/24 12/26/24 06:59 14:59 22:59 Intake Total 50 / 50 737.416 / 737.416 450 / 1187.416 Output Total 3400 / 3400 Balance 50 / 50 737.416 / 737.416 -2950 / -2212.584 Weight last 48 hrs Weight 62.3 kg Weight 63.503 kg Weight 63.503 kg Weight 63.503 kg Physical Exam 2 Narrative: in bed, no apparent distress. Vital signs noted. BP elevated HEENT normocephalic atraumatic. Neck is supple no JVP. Lungs- clear b/l Heart regular positive S1-S2 Abdomen is soft positive bowel sounds. Extremities left upper extremity AV graft with good thrill and bruit. groin not tender She has a right IJ permacath. She has a toe amputation. no leg edema. Neuro -lethargic s/p cardiac cath Data 12/26/24 03:20 12/26/24 12:31 A&P Assessment and plan (1) End stage renal disease on dialysis: see below- HD TTS Plan 39-year-old lady CAD hypertension IDDM, anemia. Patient presents with CP and SOB 1. ESRD- HD TTS: HD today 2. CAD and chest pain-NSTEMI 3. Anemia monitor hemoglobin: Recent ferritin of 1525 on September 08, 2024 no need for IV iron. - Epogen WITH hd 4. Hypertension -Resume home meds Patient was seen and examined using audiovisual equipment with the aid of a nurse. This was a telehealth visit. The patient consented to telehealth and to hemodialysis. discussed w/ Dr Garcia PDMP PDMP Reviewed: Not Reviewed Consult Attestations 2 Medical Necessity Statement: per medicine Coding Level of Care Code Acute Code for Chg Fwd Diagnoses End stage renal disease on dialysis N18.6; Z99.2
[2024-12-26] MEDS: cefTRIAXone 1,000 mg SDV 1000 MG IVP (17:38)
[2024-12-26 18:53] LABS: Partial Thromboplastin Time 27.3 SECONDS (23.9-36.7)
[2024-12-26 18:57] LABS: Blood Urea Nitrogen 18 mg/dL (6-20); Calcium 8.9 mg/dL (8.5-10.5); Carbon Dioxide 24 mmol/L (22-29); Chloride 93 mmol/L (98-107); Creatinine Clr Calc Pharmacy 18.4946; Glucose 239 mg/dL (65-115); Osmolality Calculated 286 mOsm/kg (285-295); Sodium 133 mmol/L (136-145)
[2024-12-26 19:00] LABS: Anion Gap 20.3 (5-19); Potassium 4.3 mmol/L (3.5-5.1)
--- NOTE | 2024-12-26 21:13 | PC.NURSE ---
New ptt of 27.3 came back, heparin gtt is currently paused, notified Dr. Casper. rounding in unit, discussed cardiology notes/plan and current patient situation. Received orders to dc heparin gtt and change the 325 mg aspirin daily to 81mg daily.
[2024-12-27] VITALS (14 sets, daily range): BP systolic 89–158; BP diastolic 50–87; PULSE 67–85; RESP 12–20; TEMP 36.6–36.7; O2SAT 93–100
--- NOTE | 2024-12-27 01:19 | ECG_ITS ---
Venaxis Test Date: 2024-12-27 Pat Name: Donita Aguilar Department: Room: 108 Gender: Female Microfilm Clerk: : 1985 Requested By: Ana Luisa You Order Number: [id number] Reading MD: Measurements Intervals Boomer Rate: 66 P: 58 KS: 185 QRS: -19 QRSD: 110 T: 22 QT: 446 QTc: 469 Interpretive Statements SINUS RHYTHM POSSIBLE LEFT ATRIAL ENLARGEMENT [-0.1mV P-WAVE IN V1/V2] INFERIOR MYOCARDIAL INFARCTION , OF INDETERMINATE AGE [40+ ms Q WAVE AND/OR ST/T ABNORMALITY IN II/aVF] Compared to ECG 12/25/2024 22:19:08 No significant changes [email or web address]
--- NOTE | 2024-12-27 01:26 | PC.NURSE ---
Patient called stating she was having worsening chest pain. Patient complaining of 9/10 midsternal chest pain with SOB and nausea. BP 128/69 and EKG obtained. Notified Dr. Casper and received orders for 4 mg IV morphine now.
[2024-12-27] MEDS: morphine 4 mg/mL SDV 1 mL IVP (01:41)
--- NOTE | 2024-12-27 03:17 | PC.NURSE ---
to round on patient, notified MD that patient received 4 mg of morphine with only slight resolution of pain. Patient is having 8/[address] Casper reorder heparin gtt, start three doses of sublingual nitro, and order a troponin series.
[2024-12-27 03:46] LABS: Troponin(5th) Baseline 208 ng/L (0-10)
[2024-12-27] MEDS: heparin drip 25,000 UNIT/500 ML PREMIX 17 UNIT IV (04:08)
[2024-12-27] MEDS: ondansetron 2 mg/ML SDV 2 mL 4 MG IVP (04:38)
[2024-12-27] MEDS: morphine 4 mg/mL SDV 1 mL 2 MG IVP ×4 (04:39→18:36)
[2024-12-27 05:37] LABS: Hematocrit 34.1 % (36-47); Hemoglobin 10.60 g/dL (11.27-16.99); Mean Corpuscular HGB Conc 31.1 g/dL (30-55); Mean Corpuscular Hemoglobin 31.4 pg (27-33); Mean Corpuscular Volume 100.9 fl (85-98); Nucleated Red Blood Cells % 0 %; Platelet Count 149 10^3/cmm (157-399); Red Blood Count 3.38 10^6/uL (3.85-5.65); White Blood Count 7.28 10^3/uL (3.29-11.43)
[2024-12-27 05:57] LABS: Troponin 5 2HR 200.3 ng/L (0-10); Troponin 5 2HR Delta -7.7 ABS# (0-10)
[2024-12-27 05:58] LABS: Alanine Aminotransferase 160 U/L (0-33); Albumin Level 3.6 g/dL (3.5-5.2); Alkaline Phosphatase 247 U/L (35-105); Anion Gap 21.0 (5-19); Aspartate Amino Transferase 120 U/L (0-32); Blood Urea Nitrogen 27 mg/dL (6-20); Calcium 8.4 mg/dL (8.5-10.5); Carbon Dioxide 25 mmol/L (22-29); Chloride 93 mmol/L (98-107); Creatinine Clr Calc Pharmacy 14.2913; Globulin 3.8 g/dL (1.3-4.6); Glucose 201 mg/dL (65-115); Osmolality Calculated 289 mOsm/kg (285-295); Potassium 5.0 mmol/L (3.5-5.1); Sodium 134 mmol/L (136-145); Total Protein 7.4 g/dL (6.6-8.7)
[2024-12-27 06:21] LABS: Magnesium 1.9 mg/dL (1.7-2.3)
--- NOTE | 2024-12-27 11:13 | P.PN_ITS ---
Subjective 2 Subjective: feels better Medications: Reviewed: Yes Vitals/I&O/Wt Last Vital Signs Temp 97.9 F 12/27/24 04:46 Pulse 73 12/27/24 09:21 Resp 18 12/27/24 09:21 BP 135/74 12/27/24 09:21 Pulse Ox 97 12/27/24 09:21 O2 Del Method Room Air 12/27/24 09:21 12/26/24 12/27/24 12/27/24 22:59 06:59 14:59 Intake Total 810 / 1547.416 240 / 240 Output Total 3400 / 3400 Balance -2590 / -1852.584 240 / 240 Weight last 48 hrs Weight 62.766 kg Weight 62.3 kg Weight 63.503 kg Weight 63.503 kg Weight 63.503 kg Physical Exam 2 Narrative: in bed, no apparent distress. Vital signs noted. BP elevated HEENT normocephalic atraumatic. Neck is supple no JVP. Lungs- clear b/l Heart regular positive S1-S2 Abdomen is soft positive bowel sounds. Extremities left upper extremity AV graft with good thrill and bruit. groin not tender She has a right IJ permacath. She has a toe amputation. no leg edema. Neuro -lethargic s/p cardiac cath Data 12/27/24 05:29 12/27/24 05:29 A&P Assessment and plan (1) End stage renal disease on dialysis: see below- HD TTS Plan 39-year-old lady CAD hypertension IDDM, anemia. Patient presents with CP and SOB 1. ESRD- HD TTS: HD doen yesterday , next hD saturday 2. CAD and chest pain-NSTEMI 3. Anemia monitor hemoglobin: Recent ferritin of 1525 on September 08, 2024 no need for IV iron. - Epogen WITH hd 4. Hypertension -Resume home meds 5. Hyperkalemia , low k diet and HD as above Patient was seen and examined using audiovisual equipment with the aid of a nurse. This was a telehealth visit. The patient consented to telehealth and to hemodialysis. discussed w/ Dr Garcia PDMP PDMP Reviewed: Not Reviewed Attestations 2 Medical Necessity Statement*: per medicien Coding Level of Care Code Acute Code for Chg Fwd Diagnoses End stage renal disease on dialysis N18.6; Z99.2
[2024-12-27 11:34] LABS: Partial Thromboplastin Time 36.9 SECONDS (23.9-36.7)
[2024-12-27 11:43] LABS: Troponin 5 6HR 198.3 ng/L (0-10); Troponin 5 6HR Delta -9.7 ng/L (0-12)
[2024-12-27] MEDS: heparin 5,000 unit/mL INJ 1 mL IVP ×2 (12:22→22:00)
--- NOTE | 2024-12-27 14:55 | P.PN_ITS ---
Subjective 2 Subjective: Patient was seen this morning, no fevers, no chills, no cough she does report chest pain during the night, Vitals/I&O/Wt Last Vital Signs Temp 97.9 F 12/27/24 04:46 Pulse 85 12/27/24 13:38 Resp 19 H 12/27/24 14:36 BP 135/74 12/27/24 09:21 Pulse Ox 97 12/27/24 09:21 O2 Del Method Room Air 12/27/24 09:21 12/26/24 12/27/24 12/27/24 22:59 06:59 14:59 Intake Total 810 / 1547.416 741.383 / 741.383 Output Total 3400 / 3400 Balance -2590 / -1852.584 741.383 / 741.383 Weight last 48 hrs Weight 62.766 kg Weight 62.3 kg Weight 63.503 kg Weight 63.503 kg Weight 63.503 kg Physical Exam 2 Const: COMMON NORMALS: no acute distress and patient oriented x3 Resp: COMMON NORMALS: normal respiratory effort, No retractions, No use of accessory muscles and clear to auscultation bilaterally AUSCULTATION: clear to auscultation bilaterally Cardio: COMMON NORMALS: regular rate, regular rhythm, S1 normal heart sound present and S2 normal heart sound present RATE: regular rate RHYTHM: r egular rhythm HEART SOUNDS: S1 normal heart sound present and S2 normal heart sound present GI: COMMON NORMALS: Normal to inspection, nondistended, normoactive bowel sounds present and non-tender Extremity: COMMON NORMALS: no pedal edema Neuro: COMMON NORMALS: patient oriented x3 Psych: COMMON NORMALS: mental status grossly normal Data 12/27/24 05:29 12/27/24 05:29 A&P Assessment and plan (1) NSTEMI (non-ST elevated myocardial infarction): - Cardiac catheterization 09/2024 . 1. Left main has luminal irregularity with distal 10% stenosis #2 LAD has luminal irregularity with patent previously placed proximal stent with mild in-stent restenosis #3 LCx has luminal irregularity without significant in-stent restenosis in ostial to proximal stent #4 RCA is moderate size and caliber vessel which is dominant has proximal 40% stenosis, there is also distal 40% in-stent restenosisLVEDP was moderately elevated 22 mmHgLV gram was not performed. Plan - Aspirin, statin, Coreg, heparin drip for 48 hours - Potential chest pain, NSTEMI related to hyperkalemia, resolved, - Monitor for chest pain (2) HyperCKemia: (3) End stage renal disease on dialysis: Patient is end-stage renal disease on chronic hemodialysis - Alysis days are Tuesdays and Saturdays and patient is scheduled to have hemodialysis today. Had not missed prior hemodialysis. Nephrology will be seeing the patient today for dialysis (4) Uncontrolled type 1 diabetes mellitus: Low-dose insulin sliding scale (5) Accelerated hypertension: Will resume blood pressure medications (6) Hyperkalemia: - Status post insulin, D10, calcium gluconate, Kayexalate - Plan for urgent dialysis, potassium has improved (7) Pneumonia: Plan Hypoglycemia, encourage p.o. intake, hypoglycemia protocol Pneumonia, CT/CT angio chest PE protcl [id number] IMPRESSION: 1. No acute pulmonary embolism or thoracic aortic dissection. 2. Mild bronchitis with some endobronchial debris in the right lower lobe. 3. Extensive coronary artery calcifications. Plan - Concerns for possible aspiration? - Aspiration precautions - Speech therapy eval - Rocephin GI and DVT prophylaxis in place Unvaccinated continue antibiotics, monitor respiratory status, complete 48 hours of anticoagulant therapy, dialysis tomorrow PDMP PDMP Reviewed: Not Reviewed Attestations 2 Medical Necessity Statement*: Patient requires hospitalization for NSTEMI, chest pain, pneumonia Diagnoses NSTEMI (non-ST elevated myocardial infarction) I21.4 HyperCKemia R74.8 End stage renal disease on dialysis N18.6; Z99.2 Uncontrolled type 1 diabetes mellitus with hyperglycemia E10.65 Glycemic state: with hyperglycemia Accelerated hypertension I10 Hyperkalemia E87.5 Pneumonia J18.9
--- NOTE | 2024-12-27 14:56 | USR_ITS ---
PROCEDURE INFORMATION: Exam: US Abdomen, Limited; Right Upper Quadrant Exam date and time: 12/27/2024 5:04 PM Age: 39 years old Clinical indication: Abnormal findings; Abnormal lab test; Elevated liver enzymes; Prior surgery; Surgery date: 6+ months; Surgery type: Unsure of dates but gb removed; Additional info: Transaminitis TECHNIQUE: Imaging protocol: Real time ultrasound of the abdomen with image documentation. Limited exam focused on the right upper quadrant. COMPARISON: US renal BI* [id number] 02/15/2022 8:36 AM FINDINGS: Liver: Mildly echogenic, suggesting fatty infiltration. Gallbladder: Surgically absent. Biliary ducts: No stones. No ductal dilatation. Pancreas: Unremarkable as visualized. Right kidney: Diminutive. No mass. No definite stones. No hydronephrosis. US/US liver [id number] IMPRESSION: Fatty liver.
--- NOTE | 2024-12-27 15:05 | P.PN_ITS ---
Subjective 2 Subjective: Chest pain remain atypical. Troponin trended down. Medications: Reviewed: Yes Vitals/I&O/Wt Last Vital Signs Temp 97.9 F 12/27/24 04:46 Pulse 85 12/27/24 13:38 Resp 19 H 12/27/24 14:36 BP 135/74 12/27/24 09:21 Pulse Ox 97 12/27/24 09:21 O2 Del Method Room Air 12/27/24 09:21 12/27/24 12/27/24 12/27/24 06:59 14:59 22:59 Intake Total 741.383 / 741.383 Balance 741.383 / 741.383 Weight last 48 hrs Weight 138 lb 6 oz Weight 137 lb 5.568 oz Weight 140 lb Weight 140 lb Weight 140 lb Physical Exam 2 Const: OTHER: GENERAL: Patient is sleepy fatigue open her eyes talk to me but then go back to sleep, she is getting dialysis now HEART: Regular S1 and S2. No murmur, rub or gallop. LUNGS: Clear to auscultate bilaterally. CENTRAL NERVOUS SYSTEM: Grossly nonfocal. EXTREMITIES: Lower extremities with out edema bilaterally. Data 12/27/24 05:29 12/27/24 05:29 A&P Assessment and plan (1) HyperCKemia: (2) Atypical chest pain: (3) ESRD (end stage renal disease): (4) Atherosclerotic heart disease of [place] coronary artery with other forms of angina pectoris: (5) HTN (hypertension), benign: Plan Patient chest pain is atypical mostly pleuritic in nature possibly due to uremic pericarditis, elevated cardiac marker troponin or baseline for patient due to underlying renal reduced clearance. Will continue to monitor the patient Add hydralazine for better blood pressure control Continue aspirin statin beta-marii and clopidogrel. At this point no indication for left heart cath. Hopefully after dialysis electrolyte balance will improve along with uremia will reassess the patient On today's visit dated 12/27/2024 patient remained stable chest pain is atypical though, continue dialysis. Add ranolazine PDMP PDMP Reviewed: Not Reviewed Attestations 2 Medical Necessity Statement*: Require continuation hospitalization for above defined care Coding Level of Care Code Acute Code for [facility] Diagnoses HyperCKemia R74.8 Atypical chest pain R07.89 ESRD (end stage renal disease) N18.6 Atherosclerotic heart disease of [place] coronary artery with other forms of angina pectoris I25.118 HTN (hypertension), benign I10
[2024-12-27] MEDS: cefTRIAXone 1,000 mg SDV 1000 MG IVP (17:42)
[2024-12-27 19:41] LABS: Partial Thromboplastin Time 39.8 SECONDS (23.9-36.7)
[2024-12-28] VITALS (7 sets, daily range): BP systolic 114–168; BP diastolic 47–92; PULSE 67–83; RESP 12–20; TEMP 35.7–36.9; O2SAT 98–100
[2024-12-28] MEDS: heparin drip 25,000 UNIT/500 ML PREMIX 21 UNIT IV (00:17)
--- NOTE | 2024-12-28 03:03 | PC.NURSE ---
2008- patient requesting IV benadryl to help with sleep. Per patient she gets this in dialysis. Notified Dr. biggs regarding patient request. Received orders to try 15 mg po restoril once.
[2024-12-28 04:52] LABS: Hematocrit 31.6 % (36-47); Hemoglobin 9.90 g/dL (11.27-16.99); Mean Corpuscular HGB Conc 31.3 g/dL (30-55); Mean Corpuscular Hemoglobin 30.9 pg (27-33); Mean Corpuscular Volume 98.8 fl (85-98); Nucleated Red Blood Cells % 0 %; Platelet Count 147 10^3/cmm (157-399); Red Blood Count 3.20 10^6/uL (3.85-5.65); White Blood Count 6.69 10^3/uL (3.29-11.43)
[2024-12-28 05:14] LABS: Alanine Aminotransferase 109 U/L (0-33); Albumin Level 3.4 g/dL (3.5-5.2); Alkaline Phosphatase 221 U/L (35-105); Anion Gap 21.1 (5-19); Aspartate Amino Transferase 47 U/L (0-32); Blood Urea Nitrogen 45 mg/dL (6-20); Calcium 8.3 mg/dL (8.5-10.5); Carbon Dioxide 23 mmol/L (22-29); Chloride 93 mmol/L (98-107); Creatinine Clr Calc Pharmacy 10.5718; Globulin 3.7 g/dL (1.3-4.6); Glucose 182 mg/dL (65-115); Osmolality Calculated 290 mOsm/kg (285-295); Potassium 5.1 mmol/L (3.5-5.1); Sodium 132 mmol/L (136-145); Total Protein 7.1 g/dL (6.6-8.7)
[2024-12-28 05:15] LABS: Partial Thromboplastin Time 84.2 SECONDS (23.9-36.7)
--- NOTE | 2024-12-28 08:57 | PC.SLP ---
Pt is asleep. Will attempt later today.
[2024-12-28] MEDS: morphine 4 mg/mL SDV 1 mL 2 MG IVP ×2 (09:07→13:40)
--- NOTE | 2024-12-28 09:35 | PC.SOCIAL ---
IMM Update pg 2 of IMM Updated and reviewed w/ patient. Copy provided and copy dated, initialed and placed in chart.
--- NOTE | 2024-12-28 09:59 | P.PN_ITS ---
<Statement entered by Austin Gallegos MD - 12/29/24 21:24> Patient was evaluated and cared for in conjunction with an advanced practice practitioner. I personally examined the patient and reviewed the chart and all pertinent data including imaging, telemetry, and laboratory results. I discussed the patient in detail with the advanced practice practitioner. Please see their note for complete H&P testing result and agreed upon plan of care for the patient. Subjective 2 Subjective: She continues to have the same pleuritic chest pain. She was sleeping comfortably until I awakened her for exam. Blood pressure controlled. Potassium 5.1 today, creatinine 6.1-next dialysis session tomorrow. Vitals/I&O/Wt Last Vital Signs Temp 98.4 F 12/28/24 07:52 Pulse 74 12/28/24 07:52 Resp 17 12/28/24 07:52 BP 114/60 12/28/24 07:52 Pulse Ox 98 12/28/24 07:52 O2 Del Method Room Air 12/28/24 07:52 O2 Flow Rate 2 12/28/24 03:00 12/27/24 12/28/24 12/28/24 22:59 06:59 14:59 Intake Total 1158.6 / 2066.933 166.95 / 2066.933 67.667 / 67.667 Balance 1158.6 / 2066.933 166.95 / 2066.933 67.667 / 67.667 Weight last 48 hrs Weight 144 lb 11.2 oz Weight 138 lb 6 oz Weight 137 lb 5.568 oz Physical Exam 2 Const: COMMON NORMALS: no acute distress and patient oriented x3 GENERAL APPEARANCE: cooperative and comfortable ORIENTATION/CONSCIOUSNESS: Yes awake, Yes oriented to person, Yes oriented to place and Yes oriented to time Chest: COMMONS NORMALS: normal inspection of the chest and normal palpation of entire chest wall CHEST: Yes Symmetrical chest wall rise Resp: COMMON NORMALS: normal respiratory effort, No retractions, No use of accessory muscles and clear to auscultation bilaterally EFFORT & INSPECTION: Yes symmetric chest movement AUSCULTATION: clear to auscultation bilaterally Cardio: COMMON NORMALS: regular rate, regular rhythm, S1 normal heart sound present, S2 normal heart sound present, No gallops present (Cardio), No clicks present (Cardio), No murmurs present (Cardio) and No rub (Cardio) RATE: r egular rate RHYTHM: regular rhythm HEART SOUNDS: S1 normal heart sound present and S2 normal heart sound present PERIPHERAL PULSES: radial pulses present Extremity: COMMON NORMALS: no pedal edema Neuro: COMMON NORMALS: patient oriented x3 and moves all extremities S ENSORIUM/ORIENTATION: Yes oriented to person, Yes oriented to place and Yes oriented to time Data 12/28/24 04:45 12/28/24 04:45 A&P Assessment and plan (1) Non-cardiac chest pain: (2) End stage renal disease on dialysis: (3) Atherosclerotic heart disease of [place] coronary artery with other forms of angina pectoris: (4) HTN (hypertension), benign: Plan She is receiving morphine for pleuritic chest pain. Continue aspirin, atorvastatin, Bumex, Plavix, hydralazine. PDMP PDMP Reviewed: Not Reviewed Attestations 2 Medical Necessity Statement*: per hospitalist Coding Level of Care Code Acute Code for [facility] Diagnoses Non-cardiac chest pain R07.89 End stage renal disease on dialysis N18.6; Z99.2 Atherosclerotic heart disease of [place] coronary artery with other forms of angina pectoris I25.118 HTN (hypertension), benign I10
--- NOTE | 2024-12-28 10:10 | PC.CHAP ---
Pastoral Care Encounter/Spiritual Assessment Type of Contact [] Declined line pilot visit [] Patient/Family/Request visit [] Outpatient visit [] Follow-up visit [] Physician referral [] Code/Alert [x] Routine visit [] Staff referral [] Actively dying [] Patient sleeping [] Family support [] [] Out of room [] Palliative care [] [] Receiving care in room [] Pre-surgical visit [] Trauma [] Long length of stay [] ICU visit [] Other: Relational/Emotional Strength [] Patient feels connected with others/family/visitors/staff [] Distress [] Loneliness/isolation [] Abandonment Spirituality of Patient [x] Person of Marly [] Attends Congregation of their Marly [x] Believes in Prayer [] Reads Bible or Sabianism materials [] There are Spiritual issues to be addressed Collect On Delivery Clerk Interventions [x] Prayer [x] Active listening [] Non-anxious presence [] Spiritual/emotional support [] Crisis/trauma care [] Spiritual counseling [] Bereavement support [] Provided bereavement packet [x] Provided Bible/devotional materials [] Provided toy/stuffed animal, coloring book to patient or family member [] Provided Communion [] Anointing/Harmon [] Salvation [x] Completed spiritual assessment [] Other: Impact on Illness or Injury [] Angry [] Fearful [] Anxious [] Often cries [] Exhaustion [] Unable to work [] Unable to attend jehovah's witness [] Unable to walk/stand [] Unable to read [] Unable to drive [] Unable to eat/drink [] Unable to sleep [] Unable to be with family [] Patient intubated [] Other: Summary Time spent with patient 5 min
--- NOTE | 2024-12-28 11:39 | PC.NURSE ---
pt does not want her tele back on yet.
--- NOTE | 2024-12-28 11:55 | P.DS_ITS ---
Discharge Providers Date of Admission: 12/26/24 01:45 Date of Discharge: December 28, 2024 Attending Provider at Admission: Ana Luisa Casper MD Attending Provider at Discharge: Shola Carrera MD Primary Care Provider: SUZANNE Dias Diagnoses at Discharge Discharge Diagnosis (1) Non-cardiac chest pain: (2) End stage renal disease on dialysis: (3) Atherosclerotic heart disease of [place] coronary artery with other forms of angina pectoris: (4) HTN (hypertension), benign: Reason for Visit Reason for Visit: CP SOB Hospital Course Hospital Course This is a 31-year-old female with past medical history of type 1 diabetes, CAD status post stenting, end-stage renal disease on dialysis, who presents to [facility] for chest pain, NSTEMI Patient presented to [facility] for NSTEMI, . 1. Left main has luminal irregularity with distal 10% stenosis #2 LAD has luminal irregularity with patent previously placed proximal stent with mild in-stent restenosis #3 LCx has luminal irregularity without significant in-stent restenosis in ostial to proximal stent #4 RCA is moderate size and caliber vessel which is dominant has proximal 40% stenosis, there is also distal 40% in-stent restenosisLVEDP was moderately elevated 22 mmHgLV gram was not performed. -Managed as inpatient, cardiology consulted, - Manage on aspirin, statin, Plavix, hydralazine - 48 hours of anticoagulant therapy - Cardiology recommended medical management, - Will be discharged on aspirin, statin, Plavix hydralazine, with close follow- up with primary care provider as outpatient, follow-up cardiology Patient had fluid overload during the hospitalization with end-stage renal d isease on dialysis - She received inpatient dialysis - Clinically improved with inpatient dialysis For pneumonia - CT of the chest showed mild bronchitis with some endobronchial debris in the right lower lobe - She denies any choking or globus sensation - She was managed with broad-spectrum antibiotic therapy - Overall clinically improved - He is on room air - Will discharge her with close follow-up with pulmonary as outpatient for consideration of bronchoscopy - Discharged on p.o. antibiotics Patient was found to have transaminitis, with evidence of fatty liver disease on ultrasound, follow-up with GI as outpatient Type 1 diabetes, discharged on a insulin sliding scale, follow-up with primary care Hyperkalemia required inpatient dialysis Physical Exam Const: COMMON NORMALS: no acute distress and patient oriented x3 Resp: COMMON NORMALS: normal respiratory effort, No retractions, No use of accessory muscles and clear to auscultation bilaterally AUSCULTATION: clear to auscultation bilaterally Cardio: COMMON NORMALS: regular rate, regular rhythm, S1 normal heart sound present and S2 normal heart sound present RATE: regular rate RHYTHM: regular rhythm HEART SOUNDS: S1 normal heart sound present and S2 normal heart sound present GI: COMMON NORMALS: Normal to inspection, nondistended, normoactive bowel sounds present and non-tender Extremity: COMMON NORMALS: no pedal edema Neuro: COMMON NORMALS: patient oriented x3 Psych: COMMON NORMALS: mental status grossly normal Discharge Data Studies Completed and Pending Completed Studies During Hospitalization Category Date Time Status CTA chest [CT angio chest PE protcl [id number]] Stat Cat Scan 12/26/24 01:06 Completed XR chest 1V portable [id number] Stat Exams 12/25/24 22:30 Completed CV. echo complete* [id number] Stat Ultrasound 12/26/24 01:43 Completed US liver [id number] Routine Ultrasound 12/27/24 14:56 Completed Pending at discharge Category Date Time Status Complete Blood Count w/Auto AM LABS Lab 12/29/24 04:00 Ordered Comprehensive Metabolic Panel AM LABS Lab 12/29/24 04:00 Ordered PTT [Partial Thromboplastin Time] Timed Lab 12/28/24 11:58 Ordered Phosphorus AM LABS Lab 12/29/24 04:00 Ordered Radiology Impressions Chest X-Ray 12/25/24 22:30 IMPRESSION: No acute cardiopulmonary findings. Chest CTA 12/26/24 01:06 IMPRESSION: 1. No acute pulmonary embolism or thoracic aortic dissection. 2. Mild bronchitis with some endobronchial debris in the right lower lobe. 3. Extensive coronary artery calcifications. Liver Ultrasound 12/27/24 14:56 IMPRESSION: Fatty liver. Laboratory Results WBC 6.69 10^3/uL (3.29-11.43) 12/28/24 04:45 RBC 3.20 10^6/uL (3.85-5.65) L 12/28/24 04:45 Hgb 9.90 g/dL (11.27-16.99) L 12/28/24 04:45 Hct 31.6 % (36-47) L 12/28/24 04:45 MCV 98.8 fl (85-98) H 12/28/24 04:45 MCH 30.9 pg (27-33) 12/28/24 04:45 MCHC 31.3 g/dL (30-55) 12/28/24 04:45 RDW 13.2 % (12.1-15.1) 12/28/24 04:45 Plt Count 147 10^3/cmm (157-399) L 12/28/24 04:45 MPV 10.2 fL (7.4-10.4) 12/28/24 04:45 Neut % (Auto) 57.3 % 12/28/24 04:45 Lymph % (Auto) 26.5 % 12/28/24 04:45 [place] % (Auto) 10.5 % 12/28/24 04:45 Eos % (Auto) 4.5 % 12/28/24 04:45 Baso % (Auto) 0.9 % 12/28/24 04:45 Neut # (Auto) 3.84 10^3/uL (1.8-7.7) 12/28/24 04:45 Lymph # (Auto) 1.8 10^3/uL (0.8-4.8) 12/28/24 04:45 [place] # (Auto) 0.7 10^3/uL (0.2-0.9) 12/28/24 04:45 Eos # (Auto) 0.3 10^3/uL (0.0-0.8) 12/28/24 04:45 Baso # (Auto) 0.1 10^3/uL (0.0-0.1) 12/28/24 04:45 Nucleated RBC % (auto) 0 % 12/28/24 04:45 Nucleated RBCs # 0.0 /100WBC 12/28/24 04:45 APTT 84.2 SECONDS (23.9-36.7) H D 12/28/24 04:45 D-Dimer 1.14 ug/mLFEU (0-0.59) H 12/26/24 00:31 Sodium 132 mmol/L (136-145) L 12/28/24 04:45 Potassium 5.1 mmol/L (3.5-5.1) 12/28/24 04:45 Chloride 93 mmol/L (98-107) L 12/28/24 04:45 Carbon Dioxide 23 mmol/L (22-29) 12/28/24 04:45 Anion Gap 21.1 (5-19) H 12/28/24 04:45 BUN 45 mg/dL (6-20) H 12/28/24 04:45 Creatinine 6.1 mg/dL (0.5-0.9) H* 12/28/24 04:45 GFR Calculation 7.7 mL/min (90-130) L 12/28/24 04:45 Glucose 182 mg/dL (65-115) H 12/28/24 04:45 POC Glucose 211 mg/dL (70-110) H 12/28/24 11:12 Estimat Average Glucose 140 12/26/24 00:31 Hemoglobin A1c 6.5 % (4.0-6.0) H 12/26/24 00:31 Calculated Osmolality 290 mOsm/kg (285-295) 12/28/24 04:45 Calcium 8.3 mg/dL (8.5-10.5) L 12/28/24 04:45 Phosphorus 7.9 mg/dL (2.5-4.5) H* 12/28/24 04:45 Magnesium 1.9 mg/dL (1.7-2.3) 12/27/24 05:29 Total Bilirubin 0.2 mg/dL (0.15-1.2) 12/28/24 04:45 AST 47 U/L (0-32) H 12/28/24 04:45 ALT 109 U/L (0-33) H 12/28/24 04:45 Alkaline Phosphatase 221 U/L (35-105) H 12/28/24 04:45 Troponin T Baseline 208 ng/L (0-10) H* 12/27/24 03:09 Troponin T 120 Minute 200.3 ng/L (0-10) H 12/27/24 05:29 Delta Troponin T -7.7 ABS# (0-10) L 12/27/24 05:29 Troponin T Hi Sens 6Hr 198.3 ng/L (0-10) H 12/27/24 11:13 Troponin T Hi Sens 6Hr Delta -9.7 ng/L (0-12) L 12/27/24 11:13 Total Protein 7.1 g/dL (6.6-8.7) 12/28/24 04:45 Albumin 3.4 g/dL (3.5-5.2) L 12/28/24 04:45 Globulin 3.7 g/dL (1.3-4.6) 12/28/24 04:45 Triglycerides 55 mg/dL (0-150) 12/26/24 03:20 Cholesterol 97 mg/dL (0-200) 12/26/24 03:20 LDL Cholesterol, Calc 23 mg/dL (50-129) L 12/26/24 03:20 HDL Cholesterol 63 mg/dL (60-100) 12/26/24 03:20 LDL/HDL Ratio 0.37 RATIO (0.00-3.22) 12/26/24 03:20 Cholesterol/HDL Ratio 1.54 mg/dL (0.0-4.40) 12/26/24 03:20 Lipase 31 U/L (13-60) 12/26/24 00:31 TSH 2.75 uIU/mL (0.27-4.20) 12/26/24 03:20 Hep Bs Antigen Non-reactive (Nonreactive) 12/26/24 00:31 Hep Bs Antibody 7.5 (11.5-1000) L 12/26/24 00:31 Vitals Last Vital Signs Temp 98.4 F 12/28/24 07:52 Pulse 74 12/28/24 07:52 Resp 17 12/28/24 07:52 BP 114/60 12/28/24 07:52 Pulse Ox 98 12/28/24 07:52 O2 Del Method Room Air 12/28/24 07:52 O2 Flow Rate 2 12/28/24 03:00 Discharge Plan Discharge Patient Disposition: Home Condition: Stable Prescriptions: New hydralazine 25 mg Tablet 12.5 mg PO BID 30 Days Qty: 30 0RF nitroglycerin 0.4 mg Tablet, Sublingual 0.4 mg sublingual Q5M PRN (Reason: Chest Pain) 30 Days Qty: 30 0RF amoxicillin-pot clavulanate [Augmentin] 500-125 mg tablet 1 tab PO BID 3 Days Qty: 6 0RF Continued atorvastatin 40 mg tablet 40 mg PO BEDTIME 30 Days Qty: 30 0RF aspirin 81 mg tablet,delayed release (DR/EC) 81 mg PO QAM 30 Days Qty: 30 0RF amlodipine 5 mg Tablet 5 mg PO DAILY Qty: 30 0RF bumetanide 1 mg tablet See Rx Instructions .ROUTE .COMPLEX Qty: 60 0RF Rx Instructions: TAKE 1 TABLET BY MOUTH twice DAILY ON NON-DIALYSIS DAYS cyclobenzaprine 10 mg tablet 10 mg PO TID Qty: 14 0RF sevelamer carbonate 800 mg Tablet 800 mg PO TID Qty: 90 0RF clonidine HCl 0.1 mg tablet See Rx Instructions .ROUTE .COMPLEX PRN (Reason: Blood Pressure) Rx Instructions: TAKE 1 TABLET IF SYSTOLIC BLOOD PRESSURE IS GREATER THAN 160, REPEAT ONCE IF SYSTOLIC BLOOD PRESSURE IS STILL OVER 160 AFTER 1 HOUR. gabapentin 100 mg Capsule 100 mg PO TID clopidogrel 75 mg tablet 75 mg PO DAILY escitalopram oxalate 10 mg tablet 10 mg PO DAILY Changed insulin aspart U-100 [Novolog FlexPen U-100 Insulin] 100 unit/mL (3 mL) insulin pen See Rx Instructions .ROUTE .COMPLEX Qty: 15 0RF Rx Instructions: Inject 3 times daily, subcut, after meals, based on low-dose sliding scale Discontinued losartan 50 mg Tablet 100 mg PO DAILY Qty: 60 0RF carvedilol 3.125 mg tablet 3.125 mg PO BID No Action (DME) AFO brace See Rx Instructions .Route .MEDSUPPLY Qty: 1 0RF Rx Instructions: As directed to the shoe guys (DME) diabetic shoes with 3 inserts See Rx Instructions .Route .MEDSUPPLY Qty: 1 0RF Rx Instructions: As directed to the shoe guys (DME) Dexcom G6 Gas System Operator Misc See Rx Instructions .Route Qty: 1 0RF Rx Instructions: As directed (DME) Dexcom G6 Sensor Device See Rx Instructions .Route Qty: 3 0RF Rx Instructions: As directed (DME) Dexcom G6 Transmitter Device See Rx Instructions .Route Qty: 1 0RF Rx Instructions: As directed Discharge Orders: Discharge Order (Routine); Ordered 12/28/24 Ordered By: Shola Carrera Referrals: Arnoldo Betts MD [Referring, Internal Medicine] - 1 month Referral Note: fatty liver disease Elizabeth Dougherty FNP [Primary Care Provider, Unknown] - 01/06/25 11:20 am Yokasta Walker MD [Physician, Pulmonology] - 2 weeks Referral Note: resp failure Austin Gallegos MD [Physician, Cardiology] - 1 week Discharge Diet: Cardiac Discharge Activity: Resume usual activity Patient Instructions: Opioid Safety, Patient Portal & [place] Instructions Activity Restrictions/Additional Instructions: - If any recurrent chest pain please go to the emergency room - Follow-up with cardiology as outpatient - If fatty liver disease please follow-up with GI - Please take antibiotics as prescribed for pneumonia -Please monitor your blood sugars closely -Monitor your blood sugars 3 times daily as after meals -Please record your blood sugars, and a blood sugar log -For your NovoLog -Please inject blood sugar after meals based on sliding scale provided -Do not inject insulin if you do not eat as hypoglycemia kills -This is a NovoLog sliding scale -Insulin sliding ?fingerstick? Insulin ?141-180?0 units/sq 181-220?2 units/sq ?221-260?4 units/sq ?261-300 6 units/sq ?301-350?8 units/sq ?351-400 10 units/sq ?401-450?12 units/sq >450? 14units/sq -If your blood sugar is greater than 500 go to the emergency room -If your blood sugar is less than 60 or at anytime you feel lightheaded or dizzy or diaphoretic or have chest palpitations check your blood sugar, and eat a hard candy or drink orange juice and go immediately to the emergency room -Remember hypoglycemia kills, so if his blood sugar is less than 60 we have to increase it by taking in a sugary meal such as a hard candy or orange juice and go to the emergency room -If you have any questions please call us where here to help Discharge Attestations Time Spent in Discharge Care*: greater than 30 min Status at Discharge: Cognitive status at discharge: cognitively intact , Behavioral status at discharge: cooperative and independent in ADL's , Quality Metrics Clinical Quality Measures [ No reported AMI, CVA or VTE this stay] Coding Level of Care Code 47717 Total time (in minutes) for Discharge: 45 Diagnoses Non-cardiac chest pain R07.89 End stage renal disease on dialysis N18.6; Z99.2 Atherosclerotic heart disease of [place] coronary artery with other forms of angina pectoris I25.118 HTN (hypertension), benign I10
--- NOTE | 2024-12-28 11:56 | P.PN_ITS ---
Subjective 2 Subjective: no new c/o Medications: Reviewed: Yes Vitals/I&O/Wt Last Vital Signs Temp 98.4 F 12/28/24 07:52 Pulse 74 12/28/24 07:52 Resp 17 12/28/24 07:52 BP 114/60 12/28/24 07:52 Pulse Ox 98 12/28/24 07:52 O2 Del Method Room Air 12/28/24 07:52 O2 Flow Rate 2 12/28/24 03:00 12/27/24 12/28/24 12/28/24 22:59 06:59 14:59 Intake Total 1158.6 / 1899.983 166.95 / 2066.933 310.150 / 310.150 Balance 1158.6 / 1899.983 166.95 / 2066.933 310.150 / 310.150 Weight last 48 hrs Weight 65.635 kg Weight 62.766 kg Weight 62.3 kg Physical Exam 2 Narrative: in bed, no apparent distress. Vital signs noted. BP elevated HEENT normocephalic atraumatic. Neck is supple no JVP. Lungs- clear b/l Heart regular positive S1-S2 Abdomen is soft positive bowel sounds. Extremities left upper extremity AV graft with good thrill and bruit. groin not tender She has a right IJ permacath. She has a toe amputation. no leg edema. Neuro -lethargic s/p cardiac cath Data 12/28/24 04:45 12/28/24 04:45 A&P Assessment and plan (1) End stage renal disease on dialysis: see below- HD TTS Plan 39-year-old lady CAD hypertension IDDM, anemia. Patient presents with CP and SOB 1. ESRD- HD TTS: HD done saturday , plan for HD today 2. CAD and chest pain-NSTEMI 3. Anemia monitor hemoglobin: Recent ferritin of 1525 on September 08, 2024 no need for IV iron. - Epogen WITH hd 4. Hypertension -Resume home meds 5. Hyperkalemia , low k diet and HD as above Patient was seen and examined using audiovisual equipment with the aid of a nurse. This was a telehealth visit. The patient consented to telehealth and to hemodialysis. discussed w/ Dr Garcia PDMP PDMP Reviewed: Not Reviewed Attestations 2 Medical Necessity Statement*: per medicine Coding Level of Care Code Acute Code for Chg Fwd Diagnoses End stage renal disease on dialysis N18.6; Z99.2
[2024-12-28 13:01] LABS: Partial Thromboplastin Time 31.5 SECONDS (23.9-36.7)
--- NOTE | 2024-12-28 14:28 | PC.NURSE ---
new patient paper has been faxed to [facility].
--- NOTE | 2024-12-28 15:13 | PC.NURSE ---
Pt taken to hemodialysis.
[2024-12-28] MEDS: diphenhydrAMINE 50 mg/mL SDV 1mL IVP (15:34)
== END 2024-12-28 18:48 | disposition home or self-care (01) | DRG 280 ==
LOC: ER 12-26 01:27 → CSU 12-26 01:45
PROVIDERS: Hospitalist; Admitting Provider Internal Medicine; Emergency Provider Registered Nurse; PCP Nurse Practitioner Family; Visit Provider Family Medicine
DX: I21.4 Non-ST elevation (NSTEMI) myocardial infarction (principal); J18.9 Pneumonia, unspecified organism; N18.6 End stage renal disease; I13.2 Hypertensive heart and chronic kidney disease with heart failure and with stage 5 chronic kidney disease, or end stage renal disease; E10.22 Type 1 diabetes mellitus with diabetic chronic kidney disease; E10.40 Type 1 diabetes mellitus with diabetic neuropathy, unspecified; E10.649 Type 1 diabetes mellitus with hypoglycemia without coma; I50.9 Heart failure, unspecified; Z79.4 Long term (current) use of insulin; I25.10 Atherosclerotic heart disease of native coronary artery without angina pectoris; K76.0 Fatty (change of) liver, not elsewhere classified; E87.5 Hyperkalemia; F41.9 Anxiety disorder, unspecified; E78.5 Hyperlipidemia, unspecified; Z95.5 Presence of coronary angioplasty implant and graft; Z87.891 Personal history of nicotine dependence; Z79.82 Long term (current) use of aspirin; Z79.02 Long term (current) use of antithrombotics/antiplatelets
CPT/HCPCS: 36415; 36416; 71045; 71275; 76705; 80048; 80053; 80061; 82962; 83036; 83690; 83735; 84100; 84443; 84484; 85025; 85378; 85730; 86706; 87340; 90935; 92610; 93005; 93010; 93306; 96365; 96372; 96375; 99285; J0612; J0696; J1200; J1644; J1815; J2270; J2405; J7799; J9999; P9047; Q3014; Q5105

== ENCOUNTER 2025-01-04 22:40 | Emergency (ER) | payer MEDICARE, MEDICAID, SELFPAY ==
--- OUTSIDE RECORDS SUMMARY | 2025-01-04 22:47 | XMS_ITS | Clinical Summary ---
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 Gender Identity Not on file Sexual Orientation [...] this topic Medical Devices Implanted Type Area Oil And Gas Well Treatment Operator Device Identifier Shelf Expiration Date Model / Serial / Lot Max tracy [facility] [id number] - [id number] Implanted:Qty: 2 on 12/17/2016 by Deandre Alan MD at [facility] Biological Left: Lung CR BARD- [employer] 09/19/2019 [id number] / / [id number] Control Implant Funmi Procedures Procedure Name Priority Date/Time Associated Diagnosis Comments HEMOGLOBIN A1C Routine 01/09/2017 2:52 AM CDT from Last 3 Months or Most Recently Relevant to Health Maintenance Results * (ABNORMAL) HEMOGLOBIN A1C (01/09/2017 2:52 AM CDT) HEMOGLOBIN A1C 8.9(H) 4.0 - 6.0 % 01/09/2017 1:31 PM CDT [facility] [employer] [facility] EST. AVG GLUCOSE, A1C 209 mg/dL 01/09/2017 1:[address] [facility] Blood 01/09/2017 2:52 AM CDT 01/09/2017 6:53 AM CDT Narrative [facility] - 01/09/2017 1:31 PM CDT Test performed on ToyTalkII instrumentation using HPLC methodology us Izabela Diamond MD CHEMISTRY ORDERABLES Final Res ult [facility] CLIA# [id number] [address] [place] [address] from Last 3 Months or Most Recently Relevant to Health [place] [address] [facility] MEDICAID Advance Directives For more information, please contact: [phone] * Full Code (Latest Code Status on File) Date Activated Date Inactivated Comments 12/17/2016 1:05 PM 12/27/2016 11:32 PM Care Teams Wallpaper Printer Helper Relationship Specialty Start Date End Date Shravan Jones DO [address] [address] PCP - General Family Practice 12/04/16
--- OUTSIDE RECORDS SUMMARY | 2025-01-04 22:47 | XMS_ITS | Patient Health Record ---
Author Organization [facility] Address [address] [place], [place] [id number] Care Team Providers Care Manager School Name Role Phone Kayla ALEMAN, Mao Unavailable [phone] Elizabeth Reveles Unavailable Unavailable Allergies Allergen (clinical drug ingredient) Drug/Non Drug Allergy documented on EMR Reaction Allergy Type Onset Date Status Not verifiable (uncoded) Unknown Allergy Active Reason For Referral No Information Plan Of Treatment No Information Insurance Providers Payer Name Payer Address Payer Phone Subscriber Number Group Number Insured Name Patient Relationship to Insured Coverage Start Date Coverage End Date [facility] [address] [address] [place] [address] [id number] Donita Aguilar Self - patient is the insured Medical (General) History Medical History History ICD Code See scanned documentation Surgical History Surgery Date(Month/Year) Cholecystectomy, perfromed at [facility] in [place], 02/02/15 Left lower lung lobectomy, 11/2016
--- OUTSIDE RECORDS SUMMARY | 2025-01-04 22:48 | XMS_ITS | Clinical Summary ---
Author Organization [facility] [employer] Address [address] [facility] Attn: [place] [address] Care Team Providers Care Animal Trapper Name Role Phone Shravan Jones DO Primary [...] subcutaneous injection. Active naloxone (NARCAN) 4 mg/spray Spring, Non-Aerosol EMERGENCY USE ONLY: Administer 1 spray [...] regarding vascular access for dialysis for ESRD ([facility]) Take 1 Tablet (5 mg) by mouth [...] troponin 09/22/2023 Coronary artery disease invo lving absentee-shawnee coronary artery of absentee-shawnee heart without angina pectoris 09/21/2023 End stage [...] Encounters Date Type Department Care Team Description 12/30/2024 Orders Only [facility] [place] [address] [facility] [address] [place] [address] Elizabeth Doughetry, SUZANNE Fatty liver (Primary Dx) 12/15/2024 External Device Data STL ABSTRACTION Provider, Abstract 12/04/2024 7:00 AM CDT - 12/04/2024 11:59 PM CDT Hospital Encounter [facility] Interventional Radiology [address] [place] [address] [place] [address] Chey Navas MD Birlew, Ryan Avery, MD Discharge Disposition: Home or Self Care 12/03/2024 Telephone [facility] Interventional Radiology [address] [place] [address] 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 Gender Identity Not on file Sexual Orientation [...] this topic Medical Devices Implanted Type Area Chemistry Associate Device Identifier Shelf Expiration Date Model / Serial / Lot Max 1gm Flour [id number] - [id number] Implanted:Qty : 2 on 12/17/2016 by Deandre Alan MD Biological Left: Lung CR BARD- [employer] INC 09/19/2019 [id number] / / [id number] Cath Dialysis Glidepath 14.5fr 24cm Std [id number] - [id number] Implanted:Qty : 1 on 03/18/2024 by Asif Mcclellan MD at [facility] Catheter Right: Chest BARD ANGEL VASC 09/21/2025 [id number] / / [id number] Clip Ligating Horizon Red [id number] - Csc - [id number] Implanted:Qty : 1 on 08/10/2024 by Chato Fitch MD at [facility] Clip Left: Arm TELE[employer]LEX INC [id number] 05/16/2029 101590 / / [id number] Clip Ligating Horizon Med Ti 204701 - Csc - [id number] Implanted:Qty : 1 on 08/10/2024 by Chato Fitch MD at [facility] Clip Left: Arm TELEFLEX- WECK CLOSURE SYS [id number] 03/31/2029 [id number] / / [id number] Interventional Physician Ligaclip Sml Mcs20 - [id number] Implanted:Qty : 1 on 08/10/2024 by Chato Fitch MD at [facility] Clip Left: Arm J&J- ETHICON ENDO[employer]SUR[employer]ERY INC [id number] 03/23/2029 MCS20 / / [id number] Closure Perclose Prostyle Sut Mediate 69138-58 - [id number] Implanted:Qty : 1 on 09/24/2023 by Janell Beauchamp MD at [facility] Closure Device N/A: Groin LOVE- VASC DEVICE [id number] 06/23/2025 75828-16 / / [id number] Closure Perclose Prostyle Sut Mediate 72864-11 - [id number] Implanted:Qty : 1 on 10/24/2023 by Janell Beauchamp MD at [facility] Closure Device Right: Groin LOVE- VASC DEVICE [id number] 07/24/2025 92985-46 / / [id number] Oil Slc 8.5ml [id number] - Sgtin:[id number] Implanted:Qty : 1 on 06/23/2024 by Janey Carrera MD at [facility] Eye Right: Eye [employer] [employer] 12/21/2026 [id number] / [id number] / [id number] Graft Vasc Propaten 4-2hal20vq [id number] - [id number] Implanted:Qty : 1 on 08/10/2024 by Chato Fitch MD at [facility] Graft Left: Arm W [employer] INC [id number] 05/21/2027 [id number] / [id number] / Agent Hemostat Surgicel 2x3in 1952s - [id number] Implanted:Qty : 1 on 08/10/2024 by Chato Fitch MD at [facility] Hemostatic Left: Arm J&J- ETHICON INC [id number] 12/21/20281952S / / [id number] Hemostatic Surgiflo 8ml W/ Thrombin 2994 - [id number] Implanted:Qty : 1 on 08/10/2024 by Chato Fitch MD at [facility] Hemostatic Left: Arm J&J- ETHICON INC [id number] 10/21/2025 2994 / / [id number] Agent Hemostat Surgicel 2x3in 1952s - [id number] Implanted:Qty : 1 on 08/10/2024 by Chato Fitch MD at [facility] Hemostatic Left: Arm J&J- ETHICON INC [id number] 12/21/20281952S / / [id number] Stent Synergy Xd 3.0x48mm Evrlms Elut [id number] 0 - [id number] Implanted:Qty : 1 on 09/24/2023 by Janell Beauchamp MD at [facility] Stent N/A: Coronary BOSTON SCI GENEV[employer]EVE [id number] 03/31/2025 [id number] / / [id number] Stent Synergy Xd 2.40a62lv Evrlms Elut [id number] 0 - [id number] Implanted:Qty : 1 on 10/24/2023 by Janell Beauchamp MD at [facility] Stent Left: Coronary BOSTON SCI GENEV[employer]E [id number] 08/19/2024 [id number] 220 / / [id number] Control Implant Funmi Procedures Procedure Name Priority Date/Time Associated Diagnosis Comments IR FISTULOGRAM Routine 12/04/2024 9:05 AM CDT ESRD (end stage renal disease) ([facility]) LIPID PANEL Routine 09/21/2023 6:47 PM CDT [...] dialysis. DIAGNOSIS: ESRD (end stage renal disease) ([facility]). Medications: Fentanyl and versed were titrated to effect. Moderate (conscious) sedation for this procedure was performed with continuous physician supervision. Medical history, physical exam, drug dosages, routes of drug administration, monitoring data, and precise times of service are documented in the medical record on the [facility], 'Sedative/Analgesic Administration for Diagnostic and Therapeutic [...] transition dilator is exchanged for a 6 Mongolian vascular sheath. An 8 mm angioplasty balloon [...] dialysis. DIAGNOSIS: ESRD (end stage renal disease) ([facility]). Medications: Fentanyl and versed were titrated to effect. Moderate (conscious) sedation for this procedure was performed with continuous physician supervision. Medical history, physical exam, drug dosages, routes of drug administration, monitoring data, and precise times of service are documented in the medical record on the [facility]-approved form, 'Sedative/Analgesic Administration for Diagnostic and [...] transition dilator is exchanged for a 6 Mongolian vascular sheath. An 8 mm angioplasty balloon [...] was successfully treated with 8 mm angioplasty. Chey Navas MD IR ORDERABLES Final Result * (ABNORMAL) LIPID PANEL (09/21/2023 6:47 PM CDT) CHOLESTEROL 96 <200 mg/dL 09/21/2023 10:29 PM CDT [facility] TRIGLYCERIDE 164(H) <150 mg/dL 09/21/2023 10:29 PM CDT [facility] HDL 36(L) 40 - 59 mg/dL 09/21/2023 10:29 PM CDT [facility] LDL CALCULATED 27 <100 mg/dL 09/21/2023 10:29 PM CDT [facility] NON-HDL CHOLESTEROL 60 <130 mg/dL 09/21/2023 10:29 PM CDT [facility] Blood Venipuncture / Unknown 09/21/2023 6:47 PM CDT 09/21/2023 7:10 PM CDT Narrative [facility] - 09/21/2023 10:29 PM CDT TOTAL CHOLESTEROL [...] Lacy MD CHEMISTRY ORDERABLES Final R esult [facility] CLIA # [id number] [address] [address] * (ABNORMAL) HEMOGLOBIN A1C (09/21/2023 6:46 PM CDT) HEMOGLOBIN A1C 6.8(H) <=5.6 % 09/23/2023 9:24 AM CDT [facility] EST. AVG GLUCOSE, A1C 148 mg/dL 09/23/2023 9:24 AM CDT [facility] Blood Venipuncture / Unknown 09/21/2023 6:46 PM CDT 09/21/2023 7:08 PM CDT Narrative [facility] - 09/23/2023 9:24 AM CDT HGB A1C INTERPRETATION NORMAL: <5.7% PRE-DIABETES: 5.7 - 6.4% DIABETES: 6.5% OR GREATER Luiz Lacy MD CHEMISTRY ORDERABLES Final R esult [facility] CLIA # [id number] [address] [address] from Last 3 Months or Most Recently Relevant to Health Maintenance Insurance MEDICARE PART A AND B Advance Directives For more information, please contact: [phone] * Full Code (Latest Code Status on File) Date Activated Date Inactivated Comments 10/24/2023 2:34 PM 10/25/2023 11:47 AM * Full Code Date Activated Date Inactivated Comments 10/24/2023 9:13 AM 10/24/2023 2:34 PM * Full Code Date Activated Date Inactivated Comments 09/24/2023 3:14 PM 09/25/2023 9:51 PM * Full Code Date Activated Date Inactivated Comments 09/21/2023 5:50 PM 09/24/2023 3:14 PM Care Teams Animal Trapper Relationship Specialty Start Date End Date Shravan Jones DO [address] [address] PCP - General Family Practice 12/04/16
--- OUTSIDE RECORDS SUMMARY | 2025-01-04 22:48 | XMS_ITS | Encounter Summary ---
Author Organization [facility] Address [address] [place] [address] Care Team Providers Care Swage Toolsetter Name Role Phone Shravan Jones DO Primary Care Provider [phone] Encounter Details Date Type Department Care Team (Latest Contact Info) Description 05/14/2003 Outpatient [facility] [place] [address] Jimmy Tineo, CLIVES NO ADDRESS ON FILE UNSPEC DENTAL CARIES (Primary Dx); TOOTH POSITION ANOMALY Social History Tobacco Use Types Packs/Day Years Used Date Smoking Tobacco: Never Assessed Comments Unknown Sex and Gender Information Value Date Recorded Sex Assigned at Not on file Legal Sex Female 4:38 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
--- OUTSIDE RECORDS SUMMARY | 2025-01-04 22:48 | XMS_ITS | Encounter Summary ---
Author Organization [facility] Address [address] [place] [address] Care Team Providers Care Pen Or Pencil Assembly Machine Operator Name Role Phone Shravan Jones DO Primary Care Provider [phone] Encounter Details Date Type Department Care Team (Late st Contact Info) Description 01/07/2017 Lab Requisition [facility] [address] [place] [address] [place] [address] David Ortega MD [address] [place] [address] Social History Tobacco Use Types Packs/Day Years Used Date Smoking Tobacco: Every Day Cigarettes Comments:pt lethargic Comments Unknown Sex and Gender Information Value Date Recorded Sex Assigned at Not on file 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 Stool STOOL SPECIMEN / Unknown 01/07/2017 1:54 PM CDT 01/07/2017 6:53 PM CDT Narrative [facility] - 01/07/2017 8:08 PM CDT This [...] MICROBIOLOGY - GENERAL ORDERAB LES Final Result [facility] CLIA# [id number] [address] [place] [address] documented in this encounter Visit Diagnoses Not on filedocumented in this encounter Care Teams Pen Or Pencil Assembly Machine Operator Relationship Specialty Start Date End Date Shravan Jones DO [address] [address] PCP - General Family Practice 12/04/16 documented as of this encounter
--- OUTSIDE RECORDS SUMMARY | 2025-01-04 22:48 | XMS_ITS | Encounter Summary ---
Author Organization [facility] Address [address] [place] [address] Care Team Providers Care Yield Improvement Engineer Name Role Phone Shravan Jones DO Primary Care Provider [phone] Encounter Details Date Type Department Care Team (Late st Contact Info) Description 01/02/2017 Lab Requisition [facility] Services [address] [place] [address] [place] [address] Izabela Diamond MD NO ADDRESS ON FILE Social History Tobacco Use Types Packs/Day Years Used Date Smoking Tobacco: Every Day Cigarettes Comments:pt lethargic Comments Unknown Sex and Gender Information Value Date Recorded Sex Assigned at Not on file 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 Gender Identity Not on file Sexual Orientation [...] - 145 mmol/L 01/02/2017 6:07 AM CDT [facility] [place] [facility] POTASSIUM 4.3 3.5 - 5.1 mmol/L 01/02/2017 6:07 AM CDT [facility] CHLORIDE 101 98 - 107 mmol/L 01/02/2017 6:07 AM T [facility] CO2 27 21 - 32 mmol/L 01/02/2017 6:07 AM T [facility] CALCIUM 9.7 8.4 - 10.1 mg/dL 01/02/2017 6:07 AM T [facility] BUN 16 7 - 17 mg/dL 01/02/2017 6:07 AM [facility] CREATININE 0.87 0.55 - 1.02 mg/dL 01/02/2017 6:07 AM T [facility] GLUCOSE 122(H) 74 - 106 mg/dL 01/02/2017 6:07 AM [facility] GFR >60 >=60 mL/min/1.7 3 sq meter 01/02/2017 6:07 AM T [facility] Comment: eGFR has not been validated for [...] 3 sq meter 01/02/2017 6:07 AM CDT [facility] ANION GAP 10 4 - 30 mmol/L 01/02/2017 6:07 AM T [facility] Blood 01/02/2017 3:00 AM CDT 01/02/2017 5:35 AM CDT us Izabela Diamond MD CHEMISTRY ORDERABLES Final Res ult [facility] CLIA# [id number] [address] [place] [address] * (ABNORMAL) CBC WITH DIFFERENTIAL (01/02/2017 3:00 AM CDT) [facility] WBC 10.4 4.5 - 11.0 K/uL 01/02/2017 5:44 AM [facility] RBC 4.30 4.20 - 5.40 M/uL 01/02/2017 5:44 AM [facility] HEMOGLOBIN 10.4(L) 12.0 - 16.0 g/dL 01/02/2017 5:44 AM [facility] HEMATOCRIT 34.5(L) 36.0 - 46.0 % 01/02/2017 5:44 AM [facility] MCV 80.2(L) 84.0 - 103.0 fL 01/02/2017 5:44 AM [facility] MCH 24.2(L) 27.0 - 34.0 pg 01/02/2017 5:44 AM [facility] MCHC 30.1 30.0 - 35.0 g/dL 01/02/2017 5:44 AM [facility] RDW 17.4(H) 11.0 - 14.5 % 01/02/2017 5:44 AM [facility] RDW-STDEV 51.1 37.0 - 54.0 fL 01/02/2017 5:44 AM [facility] PLATELETS 764(H) 140 - 440 K/uL 01/02/2017 5:44 AM [facility] MPV 9.2 8.9 - 12.8 fL 01/02/2017 5:44 AM [facility] NEUTROPHILS 56 42 - 75 % 01/02/2017 5:44 AM [facility] LYMPHOCYTES 27 24 - 44 % 01/02/2017 5:44 AM [facility] MONOCYTES 8 2 - 10 % 01/02/2017 5:44 AM [facility] EOSINOPHILS 7 0 - 7 % 01/02/2017 5:44 AM [facility] BASOPHILS 1 0 - 1 % 01/02/2017 5:44 AM [facility] IMMATURE GRANULOCYTES 1 0 - 2 % 01/02/2017 5:44 AM CDT [facility] NEUTROPHIL ABSOLUTE 5.79 2.00 - 8.00 K/uL 01/02/2017 5:44 AM CDT [facility] LYMPHOCYTE ABSOLUTE 2.78 1.20 - 4.00 K/uL 01/02/2017 5:44 AM CDT [facility] MONOCYTE ABSOLUTE 0.85(H) 0.10 - 0.60 K/uL 01/02/2017 5:44 AM CDT [facility] EOSINOPHIL ABSOLUTE 0.76(H) 0.00 - 0.70 K/uL 01/02/2017 5:44 AM CDT [facility] BASOPHILS ABSOLUTE 0.10 0.00 - 0.20 K/uL 01/02/2017 5:44 AM CDT [facility] IMMATURE GRANULOCYTES ABSOLUTE 0.09 0.00 - 0.10 K/uL 01/02/2017 5:44 AM CDT [facility] Blood 01/02/2017 3:00 AM CDT 01/02/2017 5:35 AM CDT us Izabela Diamond MD HEMATOLOGY ORDERABLES Final Re sult [facility] CLIA# [id number] [facility] [place] [address] documented in this encounter Visit Diagnoses Not on filedocumented in this encounter Care Teams Yield Improvement Engineer Relationship Specialty Start Date End Date Shravan Jones DO [address] [address] PCP - General Family Practice 12/04/16 documented as of this encounter
--- OUTSIDE RECORDS SUMMARY | 2025-01-04 22:48 | XMS_ITS | Encounter Summary ---
Author Organization [facility] Address [address] [place] [address] Care Team Providers Care Channel Rebuilder Name Role Phone Shravan Jones DO Primary Care Provider [phone] Encounter Details Date Type Department Care Team (Late st Contact Info) Description 01/07/2017 Lab Requisition [facility] Laboratory Services [address] [place] [address] Izabela Diamond MD NO ADDRESS ON FILE Social History Tobacco Use Types Packs/Day Years Used Date Smoking Tobacco: Every Day Cigarettes Comments:pt lethargic Comments Unknown Sex and Gender Information Value Date Recorded Sex Assigned at Not on file 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 Blood 01/07/2017 2:23 AM CDT 01/07/2017 5:01 AM CDT Izabela Diamond MD CHEMISTRY ORDERABLES Final Res ult Performing Organization Address City/[facility]/ZIP Co de Phone Number [facility] CLIA# [id number] [address] [place] [phone] * (ABNORMAL) C-REACTIVE PROTEIN (01/07/2017 2:23 AM CDT) CRP 16.6(H) 0.0 - 2.9 mg/L 01/07/2017 5:27 AM CDT [facility] Blood 01/07/2017 2:23 AM CDT 01/07/2017 5:01 AM CDT Izabela Diamond MD CHEMISTRY ORDERABLES Final Res ult Performing Organization Address [facility] Co de Phone Number [facility] CLIA# [id number] [address] [place] [phone] * (ABNORMAL) BASIC METABOLIC PANEL (01/07/2017 2:23 AM CDT) SODIUM 139 136 - 145 mmol/L 01/07/2017 5:27 AM CDT [facility] book[employer] [facility] POTASSIUM 4.1 3.5 - 5.1 mmol/L 01/07/2017 5:27 AM CDT [facility] [facility] CHLORIDE 104 98 - 107 mmol/L 01/07/2017 5:27 AM CDT [facility] [facility] CO2 26 21 - 32 mmol/L 01/07/2017 5:27 AM CDT [facility] CALCIUM 9.1 8.4 - 10.1 mg/dL 01/07/2017 5:27 AM CDT [facility] BUN 14 7 - 17 mg/dL 01/07/2017 5:27 AM CDT [facility] CREATININE 0.82 0.55 - 1.02 mg/dL 01/07/2017 5:27 AM T [facility] GLUCOSE 274(H) 74 - 106 mg/dL 01/07/2017 5:27 AM T [facility] GFR >60 >=60 mL/min/1.7 3 sq meter 01/07/2017 5:27 AM T [facility] Comment: eGFR has not been validated [...] 3 sq meter 01/07/2017 5:27 AM T [facility] ANION GAP 9 4 - 30 mmol/L 01/07/2017 5:27 AM [facility] Blood 01/07/2017 2:23 AM CDT 01/07/2017 5:01 AM CDT us Izabela Diamond MD CHEMISTRY ORDERABLES Final Res ult [facility] CLIA# [id number] [address] [place] [phone] * (ABNORMAL) CBC WITH DIFFERENTIAL (01/07/2017 2:23 AM CDT) WBC 9.3 4.5 - 11.0 K/uL 01/07/2017 5:27 AM CDT [facility] RBC 4.19(L) 4.20 - 5.40 M/uL 01/07/2017 5:27 AM CDT [facility] HEMOGLOBIN 10.3(L) 12.0 - 16.0 g/dL 01/07/2017 5:27 AM [facility] HEMATOCRIT 33.2(L) 36.0 - 46.0 % 01/07/2017 5:27 AM [facility] MCV 79.2(L) 84.0 - 103.0 fL 01/07/2017 5:27 AM [facility] MCH 24.6(L) 27.0 - 34.0 pg 01/07/2017 5:27 AM [facility] MCHC 31.0 30.0 - 35.0 g/dL 01/07/2017 5:27 AM [facility] RDW 17.2(H) 11.0 - 14.5 % 01/07/2017 5:27 AM [facility] RDW-STDEV 49.4 37.0 - 54.0 fL 01/07/2017 5:27 AM [facility] PLATELETS 545(H) 140 - 440 K/uL 01/07/2017 5:27 AM [facility] MPV 10.2 8.9 - 12.8 fL 01/07/2017 5:27 AM [facility] NEUTROPHILS 53 42 - 75 % 01/07/2017 5:27 AM [facility] LYMPHOCYTES 26 24 - 44 % 01/07/2017 5:27 AM [facility] MONOCYTES 9 2 - 10 % 01/07/2017 5:27 AM [facility] EOSINOPHILS 11(H) 0 - 7 % 01/07/2017 5:27 AM [facility] BASOPHILS 1 0 - 1 % 01/07/2017 5:27 AM [facility] IMMATURE GRANULOCYTES 0 0 - 2 % 01/07/2017 5:27 AM [facility] NEUTROPHIL ABSOLUTE 4.88 2.00 - 8.00 K/uL 01/07/2017 5:27 AM [facility] LYMPHOCYTE ABSOLUTE 2.45 1.20 - 4.00 K/uL 01/07/2017 5:27 AM [facility] MONOCYTE ABSOLUTE 0.79(H) 0.10 - 0.60 K/uL 01/07/2017 5:27 AM CDT [facility] LABORATORY [facility] EOSINOPHIL ABSOLUTE 1.01(H) 0.00 - 0.70 K/uL 01/07/2017 5:27 AM CDT [facility] BASOPHILS ABSOLUTE 0.11 0.00 - 0.20 K/uL 01/07/2017 5:27 AM CDT [facility] IMMATURE GRANULOCYTES ABSOLUTE 0.04 0.00 - 0.10 K/uL 01/07/2017 5:27 AM CDT [facility] Blood 01/07/2017 2:23 AM CDT 01/07/2017 5:01 AM CDT us Izabela Diamond MD HEMATOLOGY ORDERABLES Final Re sult [facility] CLIA# [id number] [address] [place] [phone] documented in this encounter Visit Diagnoses Not on filedocumented in this encounter Care Teams Channel Rebuilder Relationship Specialty Start Date End Date Shravan Jones DO [address] [phone] PCP - General Family Practice 12/04/16 documented as of this encounter
--- OUTSIDE RECORDS SUMMARY | 2025-01-04 22:48 | XMS_ITS | Data Portability ---
Author Organization Billie Skinner [facility] Address [address] [address] Assessment Encounter Date Assessment Date Assessment LastModified [...] Last Modified Time Details Appointments OFFICE VISIT 2024 11:20A SUZANNE LEIGH Not available Not available Not available OFFICE VISIT 2024 08:40A SUZANNE LEIGH Not available Not available Not available Lab CBC 2024 025 [email or web address] [facility], [address] [place] [address], [id number], 09/23/2024 09:57:42 Referral hematolog ist referral 2024 025 asurface Donn Huynh MD, [address] [place] [address], [id number], 09/22/2024 13:25:16 ophthalmo logist referral 2023 024 asurface Not available 05/12/2024 14:04:06 Procedures None recorded. Surgeries None recorded. Imaging US, duplex, venous, lower extremity , unilatera l [email or web address] ([facility]), [address] [place] [address], [address], 07/01/2024 15:33:26 Medication Orders amlodipin e 5 mg tablet 2024 025 [facility], [address], [place], [address], 11/27/2024 11:31:03 losartan 50 mg tablet [address] 15, [address], [place], [address], 11/27/2024 11:31:03 gabapenti n 300 mg capsule [address] 15, [address], [place], [address], 11/27/2024 11:31:03 clonazepa m 1 mg tablet 2024 025 [facility] 15, [address], [place], [address], 11/27/2024 11:17:12 escitalop jasmin 20 mg tablet 2024 025 [facility] 15, [address], [place], [address], 10/05/2024 10:53:57 amoxicill in 875 mg tablet 2024 025 [facility] 15, [address], [place], [address], 10/05/2024 10:42:27 gabapenti n 300 mg capsule 2024 025 [facility] 15, [address], [place], [address], 09/16/2024 11:20:34 Lantus Solostar U-100 Insulin 100 unit/mL (3 mL) subcutane ous pen 2024 025 [facility] 15, [address], [place], [address], 07/01/2024 15:08:29 escitalop jasmin 10 mg tablet 2024 025 [facility], [address], [place], [address], 10/05/2024 13:27:23 Patient TargetsNo targets recorded. Patient Instructions Encounter Date Encounter Id Patient Instructions Last Modified By Organization Details Last Modified Time 07/01/2024 [id number] Call or return for questions or concerns. Not available 07/01/2024 15:04:24 09/16/2024 [id number] Call or return for questions or concerns. Not available 09/16/2024 11:14:35 10/05/2024 [id number] hospital discharge follow up* Not available 10/05/2024 10:53:51 Call or return for questions or concerns. Not available 10/05/2024 10:53:37 11/27/2024 [id number] Call or return for questions or concerns. Not available 11/27/2024 10:49:56 Reason for Referral [facility] Referral for Abnormal vision Referring Physician: Elizabeth Houser, Family Medicine, Encounter Date: 05/01/2024 Referring Physician: Elizabeth smalls, Family Medicine, Encounter Date: 09/16/2024 Results Created Date Observation Date Name Description Value Unit Range Abnormal Flag Note LastModifiedBy Organization Detail LastModifiedTime 10/06/1910/05/2024 hospi jenna disch arge follo w up* Records Reviewed Yes Not Available [facility] ( [facility]) [address] [place], [address], 10/05/2024 10:32:40 10/06/19 25 10/05/2024 hospi jenna disch arge follo w up* Medications Reconciles Yes Not Available [facility] ([facility]) [address] [place], [address], 10/05/2024 10:32:40 09/22/19 25 09/21/2024 MAMMO , diagn ostic , digit al, unila teral No observ ation record ed. [facility] [address] [place], [address], 10/05/2024 10:33:01 09/22/19 25 09/21/2024 MAMMO , diagn ostic , digit al, unila teral No observ ation record ed. [facility] [address] [place], [address], 10/05/2024 10:33:01 Result Notes None recorded. Problems Name Problem SNOMED Code Status Onset Date Resolution Date Notes Provider Name and Address Organization Details Recorded Time Chronic respirat ory failure 24350551 Active 2023 XIMENA coles [facility] 4 13:05:55 Neurogen ic urinary bladder 253207542 Active 2023 XIMENA coles [facility] 4 13:06:06 Congesti ve heart failure 06019000 Active 2023 XIMENA coles [facility] 4 13:06:13 Hyperlip idemia 79824944 Active 2023 XIMENA coles [facility] 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 4 13:06:31 Chronic kidney disease stage 5 626740845 Active 2023 XIMENA coles [facility] 4 13:06:41 Acute non-ST segment elevatio n myocardi al infarcti on 039429519 Active 2023 XIMENA coles [facility]obo 4 13:06:53 Neuropat hy due to diabetes mellitus 273255568 Active 2023 XIMENA coles [facility], LJacoboL.CJacobo 4 13:07:12 Chronic pulmonar y edema 79387650 Active 2023 XIMENA coles [facility], DonteLJacoboCJacobo 4 13:07:22 Pyelonep hritis 90171060 Active 2023 ELIZABETH HOUSER, [address], [address], [facility], KaelynCJacobo 5 15:01:32 Coronary arterios clerosis 56130177 Active 2023 ELIZABETH HOUSER, [address], [address], [facility], DonteL.CJacobo 5 15:01:32 Chronic obstruct hung pulmonar y disease 42522326 Active 2023 XIMENA coles [facility], DonteL.CJacobo 4 13:08:00 Essentia l hyperten catherine 85112369 Active 2023 XIMENA coles [facility], DonteLJacoboCJacobo 4 13:08:11 Uncontro lled type 1 diabetes mellitus 029428265 Active 2023 dx in 2008 XIMENA coles [facility], DonteLJacoboCJacobo 4 12:33:15 Noncompl iance with treatmen t 2531803 Active 2023 XIMENA coles [facility], KaelynCJacobo 4 13:08:41 Noncompl iance with medicati on regimen 474054453 Active 2023 XIMENA coles [facility] 4 13:08:51 History of pancreat itis 25004654278 107 Active 2023 XIMENA coles [facility] 4 13:09:14 Dependen ce on renal dialysis 298040016 Active 2023 XIMENA coles [facility] 4 13:09:38 History of sepsis 97380285446 9100 Active 2023 XIMENA coles [facility].CJacobo 4 13:09:47 Gastropa resis due to type 1 diabetes mellitus 455970436 Active 2023 XIMENA coles [facility], Sandoval.L.CJacobo 4 13:10:04 Celiac disease 990233492 Active 2023 XIMENA coles [facility].L.CJacobo 4 13:10:14 Stented artery 086907252 Active 2023 XIMENA coles [facility], DonteL.CJacobo 4 13:11:26 End-stag e renal disease 88874003 Active 2023 ELIZABETH HOUSER, [address], [address] [place] [address], L.L.CJacobo 5 15:01:32 Recurren t urinary tract infectio n 152628732 Active 2023 XIMENA coles [facility] 4 12:26:12 Chiari malforma tion 907074631 Active 2023 XIMENA coles [facility].L.CJacobo 4 12:26:50 Steatoti c liver disease 363419379 Active 2023 XIMENA coles [facility].L.CJacobo 4 12:27:02 Anemia 557618549 Active 2023 XIMENA KEATING sharyn [facility], DonteL.CJacobo 4 12:27:22 Female pelvic inflamma tory disease 831409199 Active 2023 XIMENA coles [facility], KaelynCJacobo 4 12:28:16 Mixed anxiety and depressi ve disorder 053933969 Active 2023 XIMENA coles [facility], DonteL.CJacobo 4 12:28:28 Pancreat itis 49772813 [facility] 4 12:28:40 Diabetic ketoacid osis 851451682 Active 2023 recurren t [facility] DonteL[facility] 4 12:28:57 Migraine 91944713 Active 2023 ELIZABETH HOUSER, [address], [address], [facility], Migdalia.CJacobo 5 15:01:32 Cardiome enoch 3372625 Active 2023 XIMENA coles [facility], DonteLJacoboCJacobo 4 12:30:17 Hypoxemi c respirat ory failure 04708432043 145908 Active XIMENA coles [facility], LJacoboL.CJacobo 4 23:40:08 Pulmonar y edema 91675082 Active XIMENA coles [facility], DonteL.CJacobo 4 23:38:38 Myocardi al infarcti on 08987542 Active XIMENA coles [facility], DonteL.CJacobo 4 23:39:29 Alkaline phosphat ase above referenc e range 521798264 [facility] 23:42:35 Refracto ry migraine without aura 650663338 [facility] 23:38:28 Type 1 diabetes mellitus 46050624 Active ELIZABETH CORRINA, [address], [address], [facility] 5 15:01:32 Metaboli c acidosis 28989912 Active XIMENA KEATING [facility] 4 23:39:34 Pulmonar y hyperten catherine 12537449 Active [facility] 4 23:38:32 Long-ter m current use of insulin 063919831 [facility] 4 23:39:38 Neuropat hy due to type 1 diabetes mellitus 554537536 Active [facility] 4 23:39:00 Sepsis 01253974 Active ELIZABETH CORRINA, [address], [address], [facility] 5 15:01:33 Coronary atherosc lerosis 856575508 [facility] 4 23:41:42 Edema 065952039 Active 2023 [facility] 4 23:45:39 Edema due to fluid overload 517479957 Active 2023 XIMENA coles [facility] 4 23:45:54 End stage renal failure on dialysis 353322269 Active 20[facility] 4 23:46:40 Chest wall pain 628262055 Completed 09/16/2024 ELIZABETH HOUSER, [address], [address], [facility] 5 11:17:49 Atypical chest pain 031424915 Completed 09/16/2024 ELIZABETH HOUSER, [address], [address], [facility] 5 11:17:49 Myofasci al low back pain 6260741647 Completed 09/16/2024 ELIZABETH HOUSER, [address], [address], [facility] 5 11:17:49 Acute kidney injury 98812726 Completed 09/16/2024 ELIZABETH HOUSER, [address], [address], [facility] 5 11:17:49 Backache 017473989 Completed 09/16/2024 ELIZABETH HOUSER, [address], [address], [facility] 5 11:17:49 Anterior chest wall pain 484060220 Completed 09/16/2024 ELIZABETH HOUSER, [address], [address], [facility] 5 11:17:49 Serum creatini ne above referenc e range 761961728 Completed 09/16/2024 ELIZABETH HOUSER, [address] [address], [facility] 5 11:17:49 Nausea and vomiting 49831574 Completed 09/16/2024 ELIZABETH GIBBONSTES, [address], [address], [facility] 5 11:17:49 Fall Completed 09/16/2024 ELIZABETH GIBBONSTES, [address], [address], [facility] 11:17:49 Acute exacerba tion of chronic obstruct hung pulmonar y disease 286574636 Active ELIZABETHDima GIBBONSCORRINA, [address], [address], [facility] 11:18:50 Abdomina l pain 41730239 Completed 09/16/2024 ELIZABETH HOUSER, [address], [address], [facility] 11:17:49 Pleuriti c pain 1345491 Completed 09/16/2024 ELIZABETH HOUSER, [address], [address], [facility] 11:17:49 Pneumoni a 406699539 Completed 09/16/2024 ELIZABETH GIBBONSTES, [address], [address], [facility] 11:17:49 Acute hypergly cemia 667553878 Completed 09/16/2024 ELIZABETH HOUSER, [address], [address], [facility] 11:17:49 Flank pain 088116463 Completed 09/16/2024 ELIZABETH HOUSER, [address], [address] [place] [address] 5, [facility] 11:17:50 Headache 22866515 Completed 09/16/2024 ELIZABETH HOUSER, [address], [address] [place] [address] 5, [facility] 11:17:50 Drug abuse 49977594 Completed 09/16/2024 ELIZABETH HOUSER, [place] [address], [facility] 11:17:50 Dyspnea 664807942 Completed 09/16/2024 ELIZABETH HOUSER, [address], [address], [facility] 11:17:50 Left sided abdomina l pain 460211694 Completed 09/16/2024 ELIZABETH HOUSER [place] [address], [facility] 11:17:50 Rib pain 872137661 Completed 09/16/2024 ELIZABETH HOUSER, [address], [address], [facility] 11:17:50 Chest pain 53065800 Completed 09/16/2024 ELIZABETH HOUSER [place] [address], [facility] 11:17:50 [facility] emia 672880680 Completed 09/16/2024 ELIZABETH HOUSER, [address], [address], [facility] 11:17:50 Hyperosm olar non-keto tic state due to diabetes mellitus 404041858 Completed 09/16/2024 ELIZABETH HOUSER, [address], [address], [facility] 11:17:50 Dehydrat ion 40915084 Completed 09/16/2024 ELIZABETH HOUSER, [address], [address] , [facility] 11:17:50 Blood in urine 57073951 Completed 09/16/2024 ELIZABETH HOUSER, [place] [address] , [facility] 11:17:50 Enzyme level - finding 215862769 Completed 09/16/2024 ELIZABETH HOUSER, [address] , [facility] 11:17:50 Hypergly cemia due to type 1 diabetes mellitus 55523518568 9101 Completed 09/16/2024 ELIZABETH HOUSER, [address], [address] , [facility] 11:17:50 Hyperten sive disorder 87987851 Completed 09/16/2024 ELIZABETH HOUSER, [address] , [facility] 11:17:50 Communit y acquired pneumoni a 024811324 Completed 09/16/2024 ELIZABETH HOUSER, [address], [address], [facility] 11:17:50 Hypother speedy 085357834 Completed 09/16/2024 ELIZABETH HOUSER, [address], [address], [facility] 11:17:50 Hypoxia 497373610 Completed 09/16/2024 ELIZABETH HOUSER, [address], [address], [facility] 11:17:50 Tension- type headache 191033519 Completed 09/16/2024 ELIZABETH HOUSER, [address], [address], [facility] 11:17:50 Cardiac enzyme or marker above referenc e range 623777425 Completed 09/16/2024 ELIZABETH HOUSER, [address], [address], [facility] 11:17:50 Respirat ory failure 232723879 Completed 09/16/2024 ELIZABETH HOUSER, [address], [address], [facility] 11:17:50 Acute lymphade nitis 45297740 Completed 09/16/2024 ELIZABETH HOUSER, [address], [address], [facility] 11:17:50 Vomiting 510824695 Completed 09/16/2024 ELIZABETH HOUSER, [address], [address], [facility] 5 11:17:50 Chronic kidney disease stage 3 528741916 Completed 09/16/2024 ELIZABETH HOUSER, [address], [address], [facility] 5 11:17:50 Gastriti s 6705494 Completed 09/16/2024 ELIZABETH HOUSER, [address], [address], [facility] 5 11:17:50 Preinfar ction syndrome 9123746 Completed 09/16/2024 ELIZABETH HOUSER, [address], [address], [facility], DonteL.C. 5 11:17:51 Nephroti c syndrome 16264660 Completed 09/16/2024 ELIZABETH HOUSER, [address], [address], [facility] 11:17:51 Wheezing 07206385 Completed 09/16/2024 ELIZABETH HOUSER, [address], [address], [facility] 11:17:51 Diarrhea 36644667 Completed 09/16/2024 ELIZABETH HOUSER, [address], [address], [facility] 5 11:17:51 Colitis 46092441 Completed 09/16/2024 ELIZABETH HOUSER, [address], [address], [facility] 5 11:17:51 Acute cystitis 38008496 Completed 09/16/2024 ELIZABETH HOUSER, [address], [address], [facility] 5 11:17:51 Urinary tract infectio us disease 00517207 Completed 09/16/2024 ELIZABETH HOUSER, [address], [address], [facility] 5 11:17:51 Symptoma tic congesti ve heart failure 728006234 Completed 09/16/2024 ELIZABETH HOUSER [address], [address], [facility] 11:17:51 Intracta ble nausea and vomiting 781653937 Completed 09/16/2024 ELIZABETH HOUSER [address], [address], [facility] 11:17:51 Chronic kidney disease 521718375 Completed 09/16/2024 ELIZABETH HOUSER [address], [address], [facility] 11:17:51 Diabetes mellitus 47667501 Completed 09/16/2024 ELIZABETH HOUSER [address], [address], [facility] 11:17:51 Hypergly cemia 14395033 Completed 09/16/2024 ELIZABETH HOUSER [address], [address], [facility] 5 11:17:51 Neck pain 19606974 Completed 09/16/2024 ELIZABETH HOUSER [address], [address], [facility] 11:17:51 COVID-19 326516961 Completed 09/16/2024 ELIZABETH HOUSER, [address], [address], [facility] 11:17:51 Hyponatr emia 15217583 Completed 09/16/2024 ELIZABETH GIBBONSTES, [address], [address], [facility] 11:17:51 Tobacco dependen ce syndrome 25616962 Completed 09/16/2024 ELIZABETH HOUSER, [address], [address], [facility] 11:17:51 Lactic acidosis 27681781 Completed 09/16/2024 ELIZABETH GIBBONSTES, [address], [address], [facility] 11:17:51 Stable angina 011304671 Completed 09/16/2024 ELIZABETH GIBBONSTES, [address], [address], [facility] 11:17:49 Non-card iac chest pain 457244159 Completed 09/16/2024 ELIZABETH HOUSER, [address], [address], [facility] 11:17:50 Esophagi tis 41397170 Active 2024 XIMENA coles, [facility] 18:23:17 Notes:Some problems listed i n Documents: #[id number], #[id number], #[id number], #[id number] could not be added to this patient's chart. Please review these documents and add these problems to the patient's chart manually as needed. Problem Notes None recorded. Procedures Surgical History Date Name Laterality Status Provider Name and Address Organization Details Recorded Time 12/27/[address] of chest completed [facility] 12/27/2024 14:20:38 12/26/19 25 plain X-ray of chest completed [facility] 12/27/2024 14:13:55 11/11/19 25 plain X-ray of cervical spine completed [facility] 11/11/2024 12:44:02 10/01/19 25 angiography completed [facility] 10/01/2024 18:38:18 09/27/19 25 plain X-ray of chest completed [facility] 09/27/2024 18:18:09 09/27/19 25 echocardiography completed [facility] 10/01/2024 18:33:00 09/22/19 25 ultrasonography of right breast completed [facility] 09/21/2024 13:39:24 09/22/19 25 mammography completed [facility] 09/21/2024 13:40:36 09/11/[address] of abdomen completed [facility] 09/13/2024 14:56:32 09/10/19 25 angiography of coronary artery completed [facility] 09/13/2024 14:50:21 09/09/19 25 echocardiography completed [facility] 09/13/2024 14:54:55 09/08/19 25 plain X-ray of chest completed [facility], [place] 09/13/2024 14:57:51 08/24/[address] of chest completed [facility], [place] 08/24/2024 12:28:02 04/28/20 24 plain X-ray of chest completed [facility], [place] 04/30/2024 11:08:42 03/31/20 24 plain X-ray of chest completed [facility], [place] 04/01/2024 14:05:05 03/27/20 24 percutaneous transluminal angioplasty of coronary artery using imaging guidance with contrast completed [facility], [place] 10/05/2024 10:23:19 02/28/20 24 radiographic procedure on chest and/or abdomen completed [facility], [place] 03/04/2024 15:02:31 02/28/[address] of abdomen completed [facility], [place] 03/04/2024 15:03:26 01/19/20 24 diagnostic radiography of abdomen completed [facility], [place] 01/21/2024 17:26:25 01/06/20 24 plain X-ray of chest completed [facility], [place] 01/07/2024 15:42:42 12/27/19 24 plain X-ray of chest completed [facility], [place] 12/29/2023 23:23:06 12/27/19 24 CT of chest, abdomen and pelvis completed [facility], [place] 12/29/2023 23:32:58 12/24/19 24 plain X-ray of chest completed [facility] 12/29/2023 23:56:29 12/20/[address] of chest completed [facility], LJacoboL.C. 12/21/2023 12:33:52 12/20/19 24 plain X-ray of chest completed [facility], LJacoboL.CJacobo 12/21/2023 12:34:44 12/09/19 24 plain X-ray of chest completed [facility], L.L.CJacobo 12/12/2023 10:16:37 12/05/19 24 plain X-ray of chest completed [facility], LJacoboLJacoboCJacobo 12/06/2023 13:24:46 11/28/19 24 cardiac catheterization completed [facility], LJacoboL.CJacobo 12/06/2023 13:11:07 11/28/19 24 percutaneous transluminal angioplasty of coronary artery using imaging guidance with contrast completed [facility], L.L.CJacobo 10/05/2024 10:22:55 11/27/19 24 plain X-ray of chest completed [facility], LJacoboL.CJacobo 11/28/2023 10:19:35 10/24/19 24 percutaneous transluminal angioplasty of coronary artery using imaging guidance with contrast completed [facility], L.L.CJacobo 10/05/2024 10:22:32 10/16/19 24 percutaneous transluminal angioplasty of coronary artery using imaging guidance with contrast completed [facility] 10/05/2024 10:22:12 10/07/19 24 plain X-ray of chest completed [facility], LJacoboLJacoboCJacobo 10/08/2023 17:52:40 09/20/19 24 echocardiography completed [facility], LJacoboL.CJacobo 09/26/2023 12:48:56 lobectomy of lung completed [facility], [place] 10/10/2023 12:32:47 amputation completed XIMENA RISHABH [facility], [place] 08/24/2024 12:24:04 cholecystectomy completed XIMENA RISHABH [facility], [place] 09/13/2024 14:49:22 Imaging Results None recorded. Procedure Notes None recorded. Medical Equipment None Reported. Allergies Allergen ID Allergen Name Allergen Category Reaction Reaction Severity Criticality Documentation Date Start Date Code Code System Note Provider Name and Address Organization Details Recorded Time 29177 acetamino phen medicatio n abdominal pain moderate low 01/19/20232021 161 RxNorm GI upset /into leran ce Anh Massey sharyn [facility], [place] 07:57:42 48527 acetamino phen medicatio n Not available Not available Not available 02/21/20242023 161 RxNorm XIMENAMAHI KEATING sharyn [facility], [place] 14:37:09 Medications Name Sig Start Date Stop [...] Available hydralazi ne 25 mg tablet TAKE 1/2 (ONE-REAGAN F) TABLET BY MOUTH TWICE DAILY active Not Available Not Available No t Available metronida zole 500 mg tablet TAKE [...] 1 TABLET BY MOUTH TWICE DAILY FOR 3 DAYS active Not Available Not Available No t Available Ventolin HFA 90 mcg/actua tion aerosol [...] D weekly 10/09 completed 0; Recorded 05/02/20 22 11:51AM by Ximena Keating CMT, Office Visit; Not Available Not Available Not Available Pen Needle 4-6 times per day 10/09 completed VO CH/jl; 26624; Recorded 05/14/20 19 10:02AM by Leydi Jessica RN (Authori nirmal through Shravan Jones DO), Office Visit; Refill [...] Updated DateTime 5 152.4 cm 26 kg/m2 43663.7 9 g 98 % 98 % 74 /min 18 /min 168/92 mm[Hg] XIMENA [facility] 5 14:36:55 Date Recorded Body height Body mass index (BMI) Body weight Oxygen saturation Oxygen saturation in Arterial blood by Pulse oximetry Heart rate Respiratory rate Systolic And Diastolic Provider Name and Address Organization Details Last Updated DateTime 5 152.4 cm 26.8 kg/m2 05885.1 5 g 99 % 99 % 64 /min 18 /min 144/90 mm[Hg] XIMENA [facility] 5 09:43:53 Date Recorded Body height Body mass index (BMI) Body weight Heart rate Oxygen saturation Oxygen saturation in Arterial blood by Pulse oximetry Body temperature Systolic And Diastolic Provider Name and Address Organization Details Last Updated DateTime 5 152.4 cm 26.6 kg/m2 10674.5 6 g 62 /min 97 % 97 % 98.1 [degF] 150/80 mm[Hg] RISHABH [facility] 5 10:09:34 Date Recorded Body height Body mass index (BMI) Body weight Oxygen saturation Oxygen saturation in Arterial blood by Pulse oximetry Heart rate Respiratory rate Systolic And Diastolic Provider Name and Address Organization Details Last Updated DateTime 5 152.4 cm 25.8 kg/m2 48553.1 9 g 95 % 95 % 70 /min 18 /min 150/80 mm[Hg] XIMENA RISHABH [facility] 5 10:11:17 Date Recorded Body height Body mass index (BMI) Body weight Oxygen saturation Oxygen saturation in Arterial blood by Pulse oximetry Heart rate Respiratory rate Systolic And Diastolic Provider Name and Address Organization Details Last Updated DateTime 4 152.4 cm 23.4 kg/m2 83133.0 8 g 99 % 99 % 76 /min 18 /min 140/90 mm[Hg] XIMENA RISHABH [facility] 4 12:41:44 Social History Question Answer Notes LastModified by Organizat ion Details LastModified Time Tobacco Smoking Status Former Smoker Quit 07/2023 XIMENA KEATING [facility] 12/24/2023 12:30:16 What Type Of Diet Are You Following? REGULAR [email or web address] Information not available 12/24/2023 Which Illicit Or Recreational Drugs Have You Used? Smokes Meth [email or web address] Information not available 10/10/2023 When Did You Quit Smoking? 1-5yearssin celastcigar ette Information not available 12/24/2023 What Was The Date Of Your Most Recent Tobacco Screening? 12/24/2023 Information not available 12/24/2023 What Is Your Current Pack Years? 20-29packye ars Information not available 12/24/2023 What Is Your Relationship Status? Single [email or web address] Information not available 12/24/2023 At What Age Did You Start Smoking Tobacco? 19 Information not available 12/24/2023 How Much Tobacco Do You Smoke? No Information not available 12/24/2023 How Many Years Have You Smoked Tobacco? 20 Information not available 12/24/2023 Sex: Unknown Functional Status Question Answer Note LastModified by Organizat ion Details LastModified Time Do you use any illicit or recreational drugs? Yes Quit Meth 07/2023 [email or web address] Information not available 12/24/2023 Do you or have you ever used any other forms of tobacco or nicotine? No Information not available 12/24/2023 What is your level of alcohol consumption? None [email or web address] Information not available 10/10/2023 Are you currently employed? No disabled [email or web address] Information not available 10/10/2023 Are you able to walk? YESASSIST [email or web address] Information not available 10/10/2023 Are you able to care for yourself? No Mother is her caregiver. [email or web address] Information not available 10/10/2023 Do you or have you ever used any nicotine-free cigarettes, vape, or chewing tobacco? No Information not available 12/24/2023 Mental Status None recorded. Family History Relationship Description Onset Age of this Age Resolved Age Notes LastModified by Organization Details LastModified Time Mother Myocardial infarction In her 50's [email or web address] Not available 12/29/2023 23:44:26 Mother Rheumatoid arthritis [email or web address] Not available 12/28 23:44:44 Brother Acute lymphoid leukemia [email or web address] Not available 10/18 18:24:23 Medical History Condition Response Heart Problems Y Coronary Artery Disease Y Hospitalizations Y COPD Y Depression Y Lung Disease Y Diabetes Y Anxiety Disorder Y High Cholesterol Y Heart Disease Y Headaches Y Hypertension Y Kidney Disease Y Gynecological HistoryNo gynecological history recorded. Obstetrics History GPAL:G 0 P 0 0 0 0 Immunizations Vaccine Type Date Status Note Provider Nam e and Address Organization Details Recorded Time pneumococcal polysaccharide PPV23 8 completed SUZANNE HEATON [address] [place] [address], [phone]/24/2023 12:51:09 Past Encounters Encounter ID Performer Location Encounter Start Date Encounter Closed Date Diagnosis/Indication Diagnosis SNOMED-CT Code Diagnosis ICD10 Code Diagnosis Note [id number] SUZANNE HEATON [facility] ([facility]) [address] [place] [address] 10/10/2023 11:29:12 10/10/2023 13:24:32 Uncontrolled type 1 diabetes mellitus 196695365 E10.[address] Ortega. End stage renal failure on dialysis 602684747 Z99.2 MWF dialysis. Multi vess el coronary artery disease 022481701 I25.10 Following with cardiology in [facility]. Essential hypertension 25540090 I10 Coronary arteriosclerosis 92960144 I25.10 Follows with cardiology in [facility]. [id number] Matthew Packer DO [facility] ([facility]) [address] [place] [address] 12/02/2023 12:01:39 12/02/2023 13:56:02 Dental abscess 039037831 K04.7 Will start patient on lower dose amoxicilli n due to her hemodialys is status. Counseled patient that it is imperative that she see and be evaluated by a dentist in the next 2 to 4 weeks. [id number] SUZANNE HEATON [facility] ([facility]) [address] [place] [address] 12/24/2023 11:37:48 12/24/2023 14:35:44 Mixed anxiety and depressive disorder 424410268 F41.8 Essential hypertension 54842915 I10 Starting Nifedipine today. Type 1 mainor betes mellitus 44687293 E10.[address] Ortega. Pain in bi lateral legs 5439632230 1206023 M79.604 M79.605 Patient reports she took some of her mom's in the past and it was helpful. End stage renal failure on dialysis 212959654 Z99.2 MWF dialysis. [id number] SUZANNE HEATON [facility] ([facility]) [address] [place] [phone] 01/07/2024 15:11:38 01/07/2024 17:49:26 Edema 045392729 R60.9 Non-pittin g lower extremity. Chest pain 52147195 R07. 9 Recurrent. Following with cardiology . Abnormal b lood pressure 49092215 Z01.31 Will half dose of nifedipine until she is seen with cardiology . [id number] SUZANNE HEATON [facility] ([facility]) [address] [place] [address] 02/21/2024 11:42:22 02/21/2024 12:51:01 End-stage renal disease 34655947 N18.6 Continue dialysis. Essential hypertension 89699753 I10 Blood pressure good today. Continue current meds. Uncontroll ed type 1 diabetes mellitus 119737388 E10.65 Continue to follow with Dr. Ortega. Mixed anxi ety and depressive disorder 876631701 F41.8 [id number] ELIZABETH HOUSER [facility] ([facility]) [address] [place] [address] 04/01/2024 13:47:35 04/01/2024 15:21:12 Essential hypertension 82063664 I10 Monitor at home. Follow-up with cardiology . Uncontroll ed type 1 diabetes mellitus 117149595 E10.65 Continue to follow [facility] 992327507 Z30.9 Has a Nexplanon in her left arm, has not been changed for 12 years per patient Chronic low back pain 27 7496446 M54.50 Would like to see about prescripti on for Tramadol. 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 Congestive heart failure 45896187 I50.9 Follows with Cardiology . Chronic ob structive pulmonary disease 35830310 J44.9 Uses Breo. Secondary hyperaldosteronism 99623696 E26.1 Currently on dialysis. Angina pectoris 02482166 0 I20.9 Follows with cardiology , has nitrostat, recent stent. Amputated toe 853217562 Z89.429 Follows with podiatry. Chronic re current major depressive disorder 4434518 F33.1 Continue Lexapro. [id number] ELIZABETH HOUSER [employer] [facility] ([facility]) [address] [place] [phone] 05/01/2024 11:41:02 05/01/2024 13:20:39 Chronic chest pain 6522896380 75382 R07.9 Encouraged her mother to contact cardiology for follow-up. Essential hypertension 24927999 I10 Monitor at home. Restart Coreg. Abnormal vision 9796527 H54.7 [id number] SUZANNE HEATON [facility] ([facility]) [address] [place] [address] 07/01/2024 13:56:52 07/01/2024 15:11:16 Essential hypertension 24315816 I10 Blood pressure this am was 125/80. Type 1 mainor betes mellitus 18587521 E10.[address]tega. Mixed anxi ety and depressive disorder 950876924 F41.8 Swelling of lower leg 44 9393678 R22.40 Hypoxemic respiratory failure 4140044098 3046411 J96.91 Uses oxygen at home as needed. 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 Depressive disorder 3548 9007 F33.1 Continue escitalopr am. 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 Congestive heart failure 84798500 I50.9 I50.30 Follows with Cardiology . Chronic ki dney disease stage 5 902993845 N18.5 Z99.2 Currently on dialysis. Amputated toe 187144270 Z89.429 Follows with podiatry. Low back pain 566691815 M54.50 Gabapentin . Hypertensi ve heart and renal disease with (congestive) heart failure 669522238 I13.2 Follows with Cardiology . Chronic ob structive pulmonary disease 42532675 J44.9 Uses Breo. Chronic ki dney disease due to type 2 diabetes mellitus 8773717178 08 N18.6 Currently on dialysis. [id number] SUZANNE HEATON [facility] ([facility]) [address] [place] [phone] 09/16/2024 09:15:48 09/16/2024 11:21:40 Coronary arteriosclerosis 86187527 I25.10 Recent stent placement. Anemia 757967670 D64.9 Acute supp urative otitis media without spontaneous rupture of ear drum 31902410 H66.001 Pain in bi lateral legs 6264843509 2273608 M79.604 M79.605 She has been taking 100mg three times daily but feels like it needs to be increased. [id number] SUZANNE HEATON [facility] ([facility]) [address] [place] [address] 10/05/2024 10:02:53 10/05/2024 11:11:59 Coronary atherosclerosis 132627756 I25.10 She has 8 stents now. Mixed anxi ety and depressive disorder 255085254 F41.8 She has been having vivid dreams lately revolving around her brother who recently as well as her daughter who . Hospital i npatient stay within past 30 days 6429079808 106 Z76.89 [id number] SUZANNE HEATON [facility] ([facility]) [address] [place] [address] 11/27/2024 09:57:25 11/27/2024 10:57:38 Essential hypertension 35628365 I10 Blood pressure this am was 179/112 at home, in office is 150/80. Afternoon readings have been good. Type 1 mainor betes mellitus 68163768 E10.[address] Ortega. Pain in bi lateral legs 5047656438 5858163 M79.604 M79.605 Anxiety 88766368 F41.8 Unable to lay still for MRI. Will send in clonazepam to take prior to procedure. Health Concerns Section Related Observation LastModified by Organization Detai ls LastModified Time None Recorded Concern Status LastModified by Organization Details LastModified Time None Recorded Advance Directives Directive None Recorded Payers Insurance Date Sequence Insurance Name Policy Number Policy Varela Covered Member ID Varela Member ID Guarantor Name 01/03/2025 [place] - [facility] (MEDICARE) Donita Aguilar [id number] Donita Aguilar 01/03/2025 [place] [facility] ([facility] Donita Aguilar [id number] Donita Aguilar 01/03/2025 2 [place] Donita Aguilar [id number] Donita Aguilar 01/03/2025 1 [place] S Donita Aguilar [id number] Donita Aguilar 12/07/2024 1 [facility] [place] - [place]) [facility] [id number] Donita Aguilar Notes Date Note Type Note Provider Name and Address Organization Details Recorded Time 4 text/html Hypertension IM/FMReported bypatient.Quality:here for check-up Severity:stage 2 (>140/>90 mmHg) Duration:HTN present for years Associated Symptoms:fatigue;chest pain ELIZABETH HOUSER [address], [address], [facility], [place] 05/06/2024 15:59:26 5 text/html Hypertension IM/FMReported bypatient.Quality:here for check-up Severity:stage 2 (>140/>90 mmHg) Duration:HTN present for years Alleviating Factors:medication Associated Symptoms:fatigue Risk Factorsmyocardial infarction; end-stage renal disease; diabetes ELIZABETH HOUSER [address], [address], [facility], [place] 07/13/2024 15:14:21 5 text/html [...] no jaw pain; no tinnitus;nasal discharge ELIZABETH HOUSER [address] [place], [address], [facility], [place] 09/16/2024 11:21:13 5 text/html Coronary Artery Disease F/UReported bypatient.Severity:sympt oms are improving; no chest discomfort with daily activities Context:non-smoker;uncon trolled hypertension Treatment:does not adhere to lifestyle changes Associated Symptoms:no chest pain; no dyspnea with exertion; no nausea; no jaw pain; no dizziness;neck pain at rest;diaphoresis;back pain at rest;back pain with exertion ELIZABETH HOUSER [address], [address], [facility], [place] 10/05/2024 10:57:13 5 text/html DiabetesReported bypatient.Duration:chron ic Control:treated with insulin; hemoglobin A1C has been 7-8 Compliance:compliant with medications; compliant with follow-up visits Self Care:monitoring glucoseHypertension IM/FMReported bypatient.Quality:here for check-up Severity:stage 2 (>140/>90 mmHg) Duration:HTN present for years Alleviating Factors:medication Associated Symptoms:fatigue Risk Factorsmyocardial infarction; end-stage renal disease; diabetes SUZANNE HEATON [address] [place] [address], [address], [facility] [place] 11/27/2024 11:31:59 OBGyn Episode No OBEpisode recorded.
--- OUTSIDE RECORDS SUMMARY | 2025-01-04 22:48 | XMS_ITS | Encounter Summary ---
Author Organization [facility] Address [address] [place] [address] Care Team Providers Care Store Lead Name Role Phone Shravan Jones DO Primary Care Provider [phone] Encounter Details Date Type Department Care Team (Late st Contact Info) Description 12/12/[address] [facility] 4D Surgery Heart Lung [address] [place] [address] Stephenie Smith RN [address] [place] [address] Social History Tobacco Use Types Packs/Day Years Used Date Smoking Tobacco: Every Day Cigarettes Comments:pt lethargic Comments Unknown Sex and Gender Information Value Date Recorded Sex Assigned at Not on file Legal Sex Female 4:38 AM [employer] Gender Identity Not on file Sexual Orientation Not on file documented as of this encounter Plan of Treatment Not on file documented as of this encounter Visit Diagnoses Not on filedocumented in this encounter Care Teams Store Lead Relationship Specialty Start Date End Date Shravan Jones DO [address] [id number] PCP - General Family Practice 12/04/16 documented as of this encounter
--- OUTSIDE RECORDS SUMMARY | 2025-01-04 22:48 | XMS_ITS | Encounter Summary ---
Author Organization [facility] Address [address] [place] [address] Care Team Providers Care Burner Shaft Name Role Phone Shravan Jones DO Primary Care Provider [phone] Encounter Details Date Type Department Care Team (Late st Contact Info) Description 12/28/2016 Lab Requisition [facility] Laboratory Services [address] [place] [address] David Ortega MD [address] [place] [address] Social History Tobacco Use Types Packs/Day Years Used Date Smoking Tobacco: Every Day Cigarettes Comments:pt lethargic Comments Unknown Sex and Gender Information Value Date Recorded Sex Assigned at Not on file 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 Gender Identity Not on file Sexual Orientation [...] * PHOSPHORUS (12/28/2016 2:39 AM CDT) Pathologist [facility] PHOSPHORUS 3.4 2.5 - 4.9 mg/dL 12/28/2016 5:42 AM CDT [facility] Blood Collection / Unknown 12/28/2016 2:39 AM CDT 12/28/2016 5:01 AM CDT David Ortega MD CHEMISTRY ORDERABLES Final Res ult Performing Organization Address [facility] Co de Phone Number [facility] CLIA# [id number] [address] [place] [address] [id number] * MAGNESIUM LEVEL (12/28/2016 2:39 AM CDT) [facility] MAGNESIUM 1.6 1.6 - 2.6 mg/dL 12/28/2016 5:42 AM CDT [facility] Blood Collection / Unknown 12/28/2016 2:39 AM CDT 12/28/2016 5:01 AM CDT Narrative [facility] - 12/28/2016 5:42 AM CDT Due to Quality Assurance Technician update, MG+ reference range has changed from 1.8 - 2.4 mg/dL to the new reference range of 1.6 - 2.6 mg/dL. This will have limited patient impact. David Ortega MD CHEMISTRY ORDERABLES Final Res ult Performing Organization Address [facility] Co de Phone Number [facility] CLIA# [id number] [address] [place] [address] * PROTIME-INR (12/28/2016 2:39 AM CDT) [facility] PROTIME 15.0 12.3 - 15.5 Seconds 12/28/2016 5:16 AM CDT [facility] INR 1.1 0.8 - 1.2 12/28/2016 5:16 AM CDT [facility] Blood Collection / Unknown 12/28/2016 2:39 AM CDT 12/28/2016 5:01 AM CDT [place] [facility] - 12/28/2016 5:16 AM CDT Expected Values for INR: DVT/PE Goal INR 2.5; range 2.0 - 3.0 Valve Replacement Tissue Goal INR 2.5; range 2.0 - 3.0 Valve Replacement Mechanical Goal INR 3.0; range 2.5 - 3.5 POST-DC Goal INR 2.5; range 2.0 - 3.0 or Goal INR 3.0; range 2.5 - 3.5 Atrial Fibrillation Goal INR 2.5; range 2.0 - 3.0 Ischemic Stroke Goal INR 2.5; range 2.0 - 3.0 For additional information see Guidelines for Anticoagulation available from the pharmacy Wendy Vargas Pharm D. David Ortega MD HEMATOLOGY ORDERABLES Final Re sult [facility] CLIA# [id number] [address] [place] [address] * (ABNORMAL) PTT (12/28/2016 2:39 AM CDT) PTT 39.1(H) 24.8 - 38.8 seconds 12/28/2016 5:16 AM CDT [facility] Blood Collection / Unknown 12/28/2016 2:39 AM CDT 12/28/2016 5:01 AM CDT [place] [facility] - 12/28/2016 5:16 AM CDT Therapeutic Range: Hi-level PE/DVT heparin protocol 80.1 - 95.0 sec Lo-level PE/DVT heparin protocol 70.1 - 85.0 sec Cardiac Heparin Protocol 70.1 - 100.0 sec David Ortega MD HEMATOLOGY ORDERABLES Final Re sult [facility] CLIA# [id number] [facility] [place] [address] * (ABNORMAL) CBC WITH DIFFERENTIAL (12/28/2016 2:39 AM CDT) Pathologist [facility] WBC 11.0 4.5 - 11.0 K/uL 12/28/2016 5:09 AM CDT [facility] RBC 3.80(L) 4.20 - 5.40 M/uL 12/28/2016 5:09 AM CDT [facility] HEMOGLOBIN 9.3(L) 12.0 - 16.0 g/dL 12/28/2016 5:[facility] HEM[facility]IT 30.6(L) 36.0 - 46.0 % 12/28/2016 5:09 AM CDT [facility] MCV 80.5(L) 84.0 - 103.0 fL 12/28/2016 5:09 AM CDT [facility] MCH 24.5(L) 27.0 - 34.0 pg 12/28/2016 5:09 AM CDT [facility] MCHC 30.4 30.0 - 35.0 g/dL 12/28/2016 5:09 AM CDT [facility] RDW 17.3(H) 11.0 - 14.5 % 12/28/2016 5:09 AM T [facility] RDW-STDEV 51.8 37.0 - 54.0 fL 12/28/2016 5:09 AM CDT [facility] PLATELETS 757(H) 140 - 440 K/uL 12/28/2016 5:09 AM CDT [facility] MPV 8.9 8.9 - 12.8 fL 12/28/2016 5:09 AM CDT [facility] NEUTROPHILS 65 42 - 75 % 12/28/2016 5:09 AM CDT [facility] LYMPHOCYTES 19(L) 24 - 44 % 12/28/2016 5:09 AM CDT [facility] MONOCYTES 10 2 - 10 % 12/28/2016 5:09 AM CDT [facility] EOSINOPHILS 5 0 - 7 % 12/28/2016 5:09 AM CDT [facility] BASOPHILS 1 0 - 1 % 12/28/2016 5:09 AM CDT [facility] IMMATURE GRANULOCYTES 1 0 - 2 % 12/28/2016 5:09 AM CDT [facility] NEUTROPHIL ABSOLUTE 7.19 2.00 - 8.00 K/uL 12/28/2016 5:09 AM CDT [facility] LYMPHOCYTE ABSOLUTE 2.04 1.20 - 4.00 K/uL 12/28/2016 5:09 AM CDT [facility] MONOCYTE ABSOLUTE 1.06(H) 0.10 - 0.60 K/uL 12/28/2016 5:09 AM CDT [facility] EOSINOPHIL ABSOLUTE 0.60 0.00 - 0.70 K/uL 12/28/2016 5:09 AM CDT [facility] BASOPHILS ABSOLUTE 0.07 0.00 - 0.20 K/uL 12/28/2016 5:09 AM CDT [facility] IMMATURE GRANULOCYTES ABSOLUTE 0.07 0.00 - 0.10 K/uL 12/28/2016 5:09 AM T [facility] Blood Collection / Unknown 12/28/2016 2:39 AM CDT 12/28/2016 5:01 AM CDT us David Ortega MD HEMATOLOGY ORDERABLES Final Re sult [facility] CLIA# [id number] [address] [place] [address] * (ABNORMAL) COMPREHENSIVE METABOLIC PANEL (12/28/2016 2:39 AM CDT) SODIUM 143 136 - 145 mmol/L 12/28/2016 5:47 AM CDT [facility] POTASSIUM 3.3(L) 3.5 - 5.1 mmol/L 12/28/2016 5:47 AM [facility] CHLORIDE 103 98 - 107 mmol/L 12/28/2016 5:47 AM [facility] CO2 29 21 - 32 mmol/L 12/28/2016 5:47 AM [facility] CALCIUM 8.9 8.4 - 10.1 mg/dL 12/28/2016 5:47 AM [facility] BUN 13 7 - 17 mg/dL 12/28/2016 5:47 AM [facility] CREATININE 0.70 0.55 - 1.02 mg/dL 12/28/2016 5:47 AM [facility] GLUCOSE 46(LL) 74 - 106 mg/dL 12/28/2016 5:47 AM [facility] TOTAL PROTEIN 8.2 6.4 - 8.2 g/dL 12/28/2016 5:47 AM [facility] ALBUMIN 1.8(L) 3.4 - 5.0 g/dL 12/28/2016 5:47 AM [facility] BILIRUBIN TOTAL 0.2 0.2 - 1.0 mg/dL 12/28/2016 5:47 AM [facility] ALKALINE PHOSPHATASE 93 25 - 100 U/L 12/28/2016 5:47 AM [facility] AST 18 15 - 37 U/L 12/28/2016 5:47 AM [facility] ALT 18 13 - 61 U/L 12/28/2016 5:47 AM [facility] GFR >60 >=60 mL/min/1.7 3 sq meter 12/28/2016 5:47 AM [facility] Comment: eGFR has not been validated [...] 3 sq meter 12/28/2016 5:47 AM CDT [facility] ANION GAP 11 4 - 30 mmol/L 12/28/2016 5:47 AM CDT [facility] Blood Collection / Unknown 12/28/2016 2:39 AM CDT 12/28/2016 5:01 AM CDT us David Ortega MD CHEMISTRY ORDERABLES Final Res ult [facility] CLIA# [id number] [address] [place] [address] documented in this encounter Visit Diagnoses Not on filedocumented in this encounter Care Teams Burner Shaft Relationship Specialty Start Date End Date Shravan Jones DO [address] [address] PCP - General Family Practice 12/04/16 documented as of this encounter
--- OUTSIDE RECORDS SUMMARY | 2025-01-04 22:48 | XMS_ITS | Encounter Summary ---
Author Organization [facility] Address [address] [place] [address] Care Team Providers Care Satellite Television Installer Name Role Phone Shravan Jones DO Primary Care Provider Encounter Details Date Type Department Care Team (Late st Contact Info) Description 12/31/2016 Lab Requisition [facility] Laboratory Services [address] [place] [address] David Ortega MD [address] [place] [address] Social History Tobacco Use Types Packs/Day Years Used Date Smoking Tobacco: Every Day Cigarettes Comments:pt lethargic Comments Unknown Sex and Gender Information Value Date Recorded Sex Assigned at Not on file 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 This will have limited patient impact. us David Ortega MD CHEMISTRY ORDERABLES Final Res ult [facility] CLIA# [id number] [address] [place] [address] * (ABNORMAL) COMPREHENSIVE METABOLIC PANEL (12/31/2016 2:26 AM CDT) SODIUM 138 136 - 145 mmol/L 12/31/2016 5:52 AM CDT [facility] POTASSIUM 4.7 3.5 - 5.1 mmol/L 12/31/2016 5:52 AM [facility] CHLORIDE 102 98 - 107 mmol/L 12/31/2016 5:52 AM T [facility] CO2 27 21 - 32 mmol/L 12/31/2016 5:52 AM T [facility] CALCIUM 9.1 8.4 - 10.1 mg/dL 12/31/2016 5:52 AM T [facility] BUN 17 7 - 17 mg/dL 12/31/2016 5:52 AM T [facility] CREATININE 0.87 0.55 - 1.02 mg/dL 12/31/2016 5:52 AM T [facility] GLUCOSE 214(H) 74 - 106 mg/dL 12/31/2016 5:52 AM T [facility] TOTAL PROTEIN 8.2 6.4 - 8.2 g/dL 12/31/2016 5:52 AM T [facility] ALBUMIN 1.9(L) 3.4 - 5.0 g/dL 12/31/2016 5:52 AM CDT [facility] BILIRUBIN TOTAL 0.2 0.2 - 1.0 mg/dL 12/31/2016 5:52 AM CDT [facility] ALKALINE PHOSPHATASE 95 25 - 100 U/L 12/31/2016 5:52 AM CDT [facility] AST 9(L) 15 - 37 U/L 12/31/2016 5:52 AM CDT [facility] ALT 14 13 - 61 U/L 12/31/2016 5:52 AM CDT [facility] GFR >60 >=60 mL/min/1.7 3 sq meter 12/31/2016 5:52 AM T [facility] Comment: eGFR has not been validated [...] 3 sq meter 12/31/2016 5:52 AM CDT [facility] ANION GAP 9 4 - 30 mmol/L 12/31/2016 5:52 AM T [facility] Blood 12/31/2016 2:26 AM CDT 12/31/2016 5:17 AM CDT us David Ortega MD CHEMISTRY ORDERABLES Final Res ult [facility] CLIA# [id number] [address] [place] [address] * (ABNORMAL) CBC WITH DIFFERENTIAL (12/31/2016 2:26 AM CDT) WBC 13.7(H) 4.5 - 11.0 K/uL 12/31/2016 6:32 AM [facility] RBC 3.66(L) 4.20 - 5.40 M/uL 12/31/2016 6:32 AM [facility] HEMOGLOBIN 9.3(L) 12.0 - 16.0 g/dL 12/31/2016 6:32 AM REPLACED BY [facility] [employer] [facility] HEMATOCRIT 29.6(L) 36.0 - 46.0 % 12/31/2016 6:32 AM REPLACED BY [facility] [employer] [facility] MCV 80.9(L) 84.0 - 103.0 fL 12/31/2016 6:32 AM REPLACED BY [facility] [employer] [facility] MCH 25.4(L) 27.0 - 34.0 pg 12/31/2016 6:32 AM [facility] MCHC 31.4 30.0 - 35.0 g/dL 12/31/2016 6:32 AM REPLACED BY [facility] [employer] [facility] RDW 17.4(H) 11.0 - 14.5 % 12/31/2016 6:32 AM REPLACED BY [facility] [employer] [facility] RDW-STDEV 52.1 37.0 - 54.0 fL 12/31/2016 6:32 AM REPLACED BY [facility] [employer] [facility] PLATELETS 767(H) 140 - 440 K/uL 12/31/2016 6:32 AM REPLACED BY [facility] [employer] [facility] MPV 9.0 8.9 - 12.8 fL 12/31/2016 6:32 AM REPLACED BY [facility] [employer] [facility] NEUTROPHILS 68 42 - 75 % 12/31/2016 6:32 AM REPLACED BY [facility] [employer] [facility] LYMPHOCYTES 17(L) 24 - 44 % 12/31/2016 6:32 AM REPLACED BY [facility] [employer] [facility] MONOCYTES 8 2 - 10 % 12/31/2016 6:32 AM REPLACED BY [facility] [employer] [facility] EOSINOPHILS 6 0 - 7 % 12/31/2016 6:32 AM REPLACED BY [facility] [employer] [facility] BASOPHILS 0 0 - 1 % 12/31/2016 6:32 AM REPLACED BY [facility] [employer] [facility] IMMATURE GRANULOCYTES 1 0 - 2 % 12/31/2016 6:32 AM CDT [facility] NEUTROPHIL ABSOLUTE 9.26(H) 2.00 - 8.00 K/uL 12/31/2016 6:32 AM CDT [facility] LYMPHOCYTE ABSOLUTE 2.28 1.20 - 4.00 K/uL 12/31/2016 6:32 AM CDT [facility] MONOCYTE ABSOLUTE 1.07(H) 0.10 - 0.60 K/uL 12/31/2016 6:32 AM CDT [facility] EOSINOPHIL ABSOLUTE 0.82(H) 0.00 - 0.70 K/uL 12/31/2016 6:32 AM CDT [facility] BASOPHILS ABSOLUTE 0.06 0.00 - 0.20 K/uL 12/31/2016 6:32 AM CDT [facility] IMMATURE GRANULOCYTES ABSOLUTE 0.17(H) 0.00 - 0.10 K/uL 12/31/2016 6:32 AM CDT [facility] Blood 12/31/2016 2:26 AM CDT 12/31/2016 5:17 AM CDT Narrative [facility] - 12/31/2016 6:32 AM CDT Smear reviewed us David Ortega MD HEMATOLOGY ORDERABLES Final Re sult [facility] CLIA# [id number] [address] [place] [address] documented in this encounter Visit Diagnoses Not on filedocumented in this encounter Care Teams Satellite Television Installer Relationship Specialty Start Date End Date Shravan Jones DO [address] [address] PCP - General Family Practice 12/04/16 documented as of this encounter
--- OUTSIDE RECORDS SUMMARY | 2025-01-04 22:48 | XMS_ITS | Encounter Summary ---
Author Organization [facility] Address [address] [place] [address] Care Team Providers Care Framing Mill Operator Helper Name Role Phone Shravan Jones DO Primary Care Provider Encounter Details Date Type Department Care Team (Late st Contact Info) Description 01/09/2017 Lab Requisition [facility] Services [facility] [address] [place] [address] Izabela Diamond MD NO ADDRESS ON FILE Social History Tobacco Use Types Packs/Day Years Used Date Smoking Tobacco: Every Day Cigarettes Comments:pt lethargic Comments Unknown Sex and Gender Information Value Date Recorded Sex Assigned at Not on file 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 This will have limited patient impact. us Izabela Diamond MD CHEMISTRY ORDERABLES Final Res ult [facility] CLIA# [id number] [address] [place] [address] * (ABNORMAL) COMPREHENSIVE METABOLIC PANEL (01/09/2017 3:15 AM CDT) SODIUM 139 136 - 145 mmol/L 01/09/2017 5:53 AM CDT [facility] POTASSIUM 4.1 3.5 - 5.1 mmol/L 01/09/2017 5:53 AM T [facility] CHLORIDE 101 98 - 107 mmol/L 01/09/2017 5:53 AM T [facility] CO2 28 21 - 32 mmol/L 01/09/2017 5:53 AM T [facility] CALCIUM 8.8 8.4 - 10.1 mg/dL 01/09/2017 5:53 AM T [facility] BUN 18(H) 7 - 17 mg/dL 01/09/2017 5:53 AM T [facility] CREATININE 0.73 0.55 - 1.02 mg/dL 01/09/2017 5:53 AM T [facility] GLUCOSE 182(H) 74 - 106 mg/dL 01/09/2017 5:53 AM T [facility] TOTAL PROTEIN 8.4(H) 6.4 - 8.2 g/dL 01/09/2017 5:53 AM T [facility] ALBUMIN 2.5(L) 3.4 - 5.0 g/dL 01/09/2017 5:53 AM CDT [facility] BILIRUBIN TOTAL 0.2 0.2 - 1.0 mg/dL 01/09/2017 5:53 AM CDT [facility] ALKALINE PHOSPHATASE 99 25 - 100 U/L 01/09/2017 5:53 AM CDT [facility] AST 30 15 - 37 U/L 01/09/2017 5:53 AM CDT [facility] ALT 27 13 - 61 U/L 01/09/2017 5:53 AM CDT [facility] GFR >60 >=60 mL/min/1.7 3 sq meter 01/09/2017 5:53 AM T [facility] Comment: eGFR has not been validated [...] 3 sq meter 01/09/2017 5:53 AM CDT [facility] ANION GAP 10 4 - 30 mmol/L 01/09/2017 5:53 AM T [facility] Blood 01/09/2017 3:15 AM CDT 01/09/2017 5:12 AM CDT us Izabela Diamond MD CHEMISTRY ORDERABLES Final Res ult [facility] CLIA# [id number] [address] [place] [address] * (ABNORMAL) CBC WITH DIFFERENTIAL (01/09/2017 3:15 AM CDT) WBC 8.7 4.5 - 11.0 K/uL 01/09/2017 5:20 AM [facility] RBC 4.63 4.20 - 5.40 M/uL 01/09/2017 5:20 AM [facility] HEMOGLOBIN 11.3(L) 12.0 - 16.0 g/dL 01/09/2017 5:20 AM [facility] HEMATOCRIT 36.8 36.0 - 46.0 % 01/09/2017 5:20 AM [facility] MCV 79.5(L) 84.0 - 103.0 fL 01/09/2017 5:20 AM [facility] MCH 24.4(L) 27.0 - 34.0 pg 01/09/2017 5:20 AM [facility] MCHC 30.7 30.0 - 35.0 g/dL 01/09/2017 5:20 AM [facility] RDW 17.3(H) 11.0 - 14.5 % 01/09/2017 5:20 AM [facility] RDW-STDEV 50.4 37.0 - 54.0 fL 01/09/2017 5:20 AM [facility] PLATELETS 463(H) 140 - 440 K/uL 01/09/2017 5:20 AM [facility] MPV 9.9 8.9 - 12.8 fL 01/09/2017 5:20 AM [facility] NEUTROPHILS 46 42 - 75 % 01/09/2017 5:20 AM [facility] LYMPHOCYTES 33 24 - 44 % 01/09/2017 5:20 AM [facility] MONOCYTES 8 2 - 10 % 01/09/2017 5:20 AM [facility] EOSINOPHILS 11(H) 0 - 7 % 01/09/2017 5:20 AM [facility] BASOPHILS 1 0 - 1 % 01/09/2017 5:20 AM [facility] IMMATURE GRANULOCYTES 0 0 - 2 % 01/09/2017 5:20 AM [facility] NEUTROPHIL ABSOLUTE 4.05 2.00 - 8.00 K/uL 01/09/2017 5:20 AM CDT [facility] LYMPHOCYTE ABSOLUTE 2.86 1.20 - 4.00 K/uL 01/09/2017 5:20 AM CDT [facility] MONOCYTE ABSOLUTE 0.73(H) 0.10 - 0.60 K/uL 01/09/2017 5:20 AM CDT [facility] EOSINOPHIL ABSOLUTE 0.95(H) 0.00 - 0.70 K/uL 01/09/2017 5:20 AM CDT [facility] BASOPHILS ABSOLUTE 0.11 0.00 - 0.20 K/uL 01/09/2017 5:20 AM CDT [facility] IMMATURE GRANULOCYTES ABSOLUTE 0.03 0.00 - 0.10 K/uL 01/09/2017 5:20 AM CDT [facility] Blood 01/09/2017 3:15 AM CDT 01/09/2017 5:12 AM CDT us Izabela Diamond MD HEMATOLOGY ORDERABLES Final Re sult [facility] CLIA# [id number] [address] [place] [address] * (ABNORMAL) HEMOGLOBIN A1C (01/09/2017 2:52 AM CDT) HEMOGLOBIN A1C 8.9(H) 4.0 - 6.0 % 01/09/2017 1:31 PM CDT [facility] EST. AVG GLUCOSE, A1C 209 mg/dL 01/09/2017 1:31 PM CDT [facility] Blood 01/09/2017 2:52 AM CDT 01/09/2017 6:53 AM CDT Narrative [facility] - 01/09/2017 1:31 PM CDT Test performed on [employer] instrumentation using HPLC methodology us Izabela Diamond MD CHEMISTRY ORDERABLES Final Res ult [facility] CLIA# [id number] [address] [place] [address] documented in this encounter Visit Diagnoses Not on filedocumented in this encounter Care Teams Framing Mill Operator Helper Relationship Specialty Start Date End Date Shravan Jones DO [address] [address] PCP - General Family Practice 12/04/16 documented as of this encounter
--- OUTSIDE RECORDS SUMMARY | 2025-01-04 22:48 | XMS_ITS | Encounter Summary ---
Author Organization [facility] Address [address] [place] [address] Care Team Providers Care Child Nutrition Director Name Role Phone Shravan Jones DO Primary Care Provider [phone] Encounter Details Date Type Department Care Team (Late st Contact Info) Description 01/07/2017 Lab Requisition [facility] Laboratory Services [address] [place] [address] [place] [address] David Ortega MD [address] [place] [address] Social History Tobacco Use Types Packs/Day Years Used Date Smoking Tobacco: Every Day Cigarettes Comments:pt lethargic Comments Unknown Sex and Gender Information Value Date Recorded Sex Assigned at Not on file 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
--- OUTSIDE RECORDS SUMMARY | 2025-01-04 22:48 | XMS_ITS | Encounter Summary ---
Author Organization [facility] Address [address] [place] [address] Care Team Providers Care Putter In Name Role Phone Shravan Jones DO Primary Care Provider [phone] Reason for Visit * Reason Onset Date Comments Appointment Notification 11/05/2023 Encounter Details Date Type Department Care Team (Late st Contact Info) Description 11/05/2023 Telephone [facility] [address] [place] [id number] Janell Beauchamp MD [address] [place] [address] Appointment Notification Social History Tobacco Use Types Packs/Day Years Used Date Smoking Tobacco: Every Day Comments:Quit smoking: pt le thargic Social Connections Answer Date Recorded In a typical week, how many times do you talk on the telephone with family, friends, or neighbors? Never 09/22/19 24 Frequency of Social Gatherings with Friends and Family Not on file 09/22/2023 Attends Voodoo Services Not on file 09/21 Active Member [...] on file Legal Sex Female 3:34 PM SHED BOSS Gender Identity Not on file Sexual Orientation Not on file documented as of this encounter Miscellaneous Notes * Telephone Encounter - Patrica Barney - 11/05/2023 12:07 PM CDT Janell (Provider) MESSAGE Pt needs to cancel appt on 11/07 and would like to resched. For 11/25 as she has other appts in town that day. Please call pt to reschedule. [facility] Temporary Data Entry Clerk: Patrica Barney documented in this encounter Plan of Treatment Not on file documented as of this encounter Visit Diagnoses Not on filedocumented in this encounter Additional Health Concerns Infection Onset Date Last Indicated Resolved Time R/O C. diff 07/06/2024 07/06/2024 07/06/2024 8:35 AM [employer]ED B[employer] documented as of this encounter Care Teams Putter In Relationship Specialty Start Date End Date Shravan Jones DO [address] [phone] PCP - General Family Practice 12/04/16 documented as of this encounter
--- OUTSIDE RECORDS SUMMARY | 2025-01-04 22:48 | XMS_ITS | Encounter Summary ---
Author Organization [employer] [facility] Address [address] [place] [address] Care Team Providers Care Plant Scientist Name Role Phone Shravan Jones DO Primary Care Provider [phone] Reason for Referral * Eval and Treat (Routine) - Open Specialty Diagnoses / Procedures Referred By Barrie tatum Referred To Contact Gastroenterology Diagnoses Fatty liver Procedures TX OFFICE/OUTPATIENT ESTABLISHED MOD MDM 30 MIN TX OFFICE/OUTPATIENT NEW MODERATE MDM 45 MINUTES new request Elizabeth Dougherty FNP [address] [place] [address] Phone: tel: [facility]: [facility] [phone] Phone: tel: fax: Referral ID Status Reason Start Date Expiration Date Visits Requested Visits Authorized [id number] Open Performing Department to Schedule 12/30/2024 12/30/2025 1 1 Encounter Details Date Type Department Care Team (Late st Contact Info) Description 12/30/2024 [facility] Only [facility] [phone] Elizabeth Dougherty FNP [address] [place] [address] Fatty liver (Primary Dx) Social History Tobacco Use Types Packs/Day Years Used Date Smoking Tobacco: Former Cigarettes Q uit: 08/05/2023 Comments:Quit smoking: pt le thargic Alcohol Use Standard Drinks/Week Comments Not Currently 0 (1 standard drink = 0.6 oz pur e alcohol) Social Connections Answer Date Recorded In a typical week, how many times do you talk on the telephone with family, friends, or neighbors? 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 Gender Identity Not on file Sexual Orientation Not on file documented as of this encounter Plan of Treatment Scheduled Referrals Name Type Priority Associated Diagnoses Order Schedule AMB REFERRAL TO GASTROENTEROLOGY Outpatient Referral Routine Fatty liver Ordered: 12/30/2024 documented as of this encounter Visit Diagnoses Diagnosis Fatty liver- Primary Other chronic nonalcoholic liver disease documented in this encounter Care Teams Plant Scientist Relationship Specialty Start Date End Date Shravan Jones DO [address] [place] [phone] PCP - General Family Practice 12/04/16 documented as of this encounter
[2025-01-04 22:50] VITALS: BP 159/81; PULSE 79; RESP 22; TEMP 36.7; O2SAT 98; BMI 25.4
--- NOTE | 2025-01-04 22:54 | ECG_ITS ---
[facility] Test Date: 2025-01-04 Pat Name: Donita Aguilar Department: Room: Gender: Female Ordnance Engineering Technician: : 1985 Requested By: Dawna Nick Order Number: [id number] Salmeron MD: Gilberto Eugene M.D. Measurements Intervals [place] Rate: 76 P: 44 OR: 187 QRS: -25 QRSD: 114 T: 53 QT: 412 QTc: 464 Interpretive Statements SINUS RHYTHM BORDERLINE LEFT AXIS DEVIATION [QRS AXIS < -20] MODERATE INTRAVENTRICULAR CONDUCTION DELAY [110+ ms QRS DURATION] Compared to ECG 12/27/2024 01:19:46 Intraventricular conduction delay now present Myocardial infarct finding no longer present Electronically Signed On 01-05-2025 09:45:57 CDT by Gilberto Eugene M.D. [id number]
[2025-01-05 00:20] LABS: Hematocrit 33.1 % (36-47); Hemoglobin 10.50 g/dL (11.27-16.99); Mean Corpuscular HGB Conc 31.7 g/dL (30-55); Mean Corpuscular Hemoglobin 31.1 pg (27-33); Mean Corpuscular Volume 97.9 fl (85-98); Nucleated Red Blood Cells % 0 %; Platelet Count 155 10^3/cmm (157-399); Red Blood Count 3.38 10^6/uL (3.85-5.65); White Blood Count 8.98 10^3/uL (3.29-11.43)
[2025-01-05 00:39] LABS: Alanine Aminotransferase 69 U/L (0-33); Albumin Level 4.1 g/dL (3.5-5.2); Alkaline Phosphatase 218 U/L (35-105); Anion Gap 24.1 (5-19); Aspartate Amino Transferase 53 U/L (0-32); Blood Urea Nitrogen 39 mg/dL (6-20); Calcium 8.5 mg/dL (8.5-10.5); Carbon Dioxide 22 mmol/L (22-29); Chloride 97 mmol/L (98-107); Creatinine Clr Calc Pharmacy 9.1457; Globulin 4.0 g/dL (1.3-4.6); Glucose 172 mg/dL (65-115); Osmolality Calculated 297 mOsm/kg (285-295); Potassium 6.1 mmol/L (3.5-5.1); Sodium 137 mmol/L (136-145); Total Protein 8.1 g/dL (6.6-8.7)
[2025-01-05 00:41] LABS: Troponin(5th) Baseline 220 ng/L (0-10)
--- NOTE | 2025-01-05 02:15 | W.ED.CHESTPA ---
HPI - Chest Pain General: Chief Complaint: Chest Pain Stated Complaint: Chest Pains Time Seen by Provider: 01/04/25 23:22 History of Present Illness: 39-year-old female with a history of end-stage renal disease on dialysis, diabetes, hypertension, CHF, coronary artery disease, pulmonary hypertension, gastroparesis who presents to the emergency room with chest pain. She complains of central chest pain. Substernal. This radiates into her back and left arm. She says she has had 8 stents. She recently had pneumonia. Related Data Home Medications ?Medication ?Instructions ?Recorded ?Confirmed clonidine HCl 0.1 mg tablet See Rx Instructions .Route 11/27/23 12/26/24 .COMPLEX PRN Blood Pressure gabapentin 100 mg capsule 100 mg PO TID 12/27/23 12/26/24 clopidogrel 75 mg tablet 75 mg PO DAILY 04/28/24 12/26/24 escitalopram oxalate 10 mg tablet 10 mg PO DAILY 09/07/24 12/26/24 Previous Rx's ?Medication ?Instructions ?Recorded blood-glucose sensor (Dexcom G6 #3 ea 06/12/22 Sensor device) blood-glucose transmitter (Dexcom #1 ea 06/12/22 G6 Transmitter device) blood-glucose,hand alterations tailor,cont #1 ea 06/12/22 (Dexcom G6 Applier) sevelamer carbonate 800 mg tablet 800 mg PO TID #90 tabs 09/16/23 aspirin 81 mg tablet,delayed 81 mg PO QAM 30 days #30 tabs 03/28/24 release atorvastatin 40 mg tablet 40 mg PO BEDTIME 30 days #30 tabs 03/28/24 AFO brace #1 ea 04/20/24 diabetic shoes with 3 inserts #1 ea 04/20/24 amlodipine 5 mg tablet 5 mg PO DAILY #30 tabs 09/30/24 bumetanide 1 mg tablet See Rx Instructions .Route 09/30/24 .COMPLEX #60 tabs cyclobenzaprine 10 mg tablet 10 mg PO TID #14 tabs 11/10/24 hydralazine 25 mg tablet 12.5 mg (1/2 x 25 mg) PO BID 30 12/28/24 days #30 tabs insulin aspart U-100 100 unit/mL See Rx Instructions .Route 12/28/24 (3 mL) subcutaneous pen (Novolog .COMPLEX #15 mL FlexPen U-100 Insulin aspart) nitroglycerin 0.4 mg sublingual 0.4 mg sublingual Q5M PRN Chest 12/28/24 tablet Pain 30 days #30 tabs Allergies Allergy/AdvReac Type Severity Reaction Status Date / Time acetaminophen AdvReac Mild ADR-Gastrointestinal Verified 12/25/24 22:25 Upset Review of Systems Narrative: Constitutional symptoms: Negative except as documented in HPI. Skin symptoms: Negative except as documented in HPI. Eye symptoms: Negative except as documented in HPI. ENMT symptoms: Negative except as documented in HPI. Respiratory symptoms: Negative except as documented in HPI. Cardiovascular symptoms: Negative except as documented in HPI. Gastrointestinal symptoms: Negative except as documented in HPI. Genitourinary symptoms: Negative except as documented in HPI. Musculoskeletal symptoms: Negative except as documented in HPI. Neurologic symptoms: Negative except as documented in HPI. Psychiatric symptoms: Negative except as documented in HPI. Endocrine symptoms: Negative except as documented in HPI. PFSH ED PFSH: Medical History (Updated 01/05/25 @ 03:08 by Dawna Briceno MD) HTN (hypertension), benign Hyperkalemia Headache Accelerated hypertension Uncontrolled type 1 diabetes mellitus ESRD (end stage renal disease) Dialysis complication Hypoglycemia Hemodialysis catheter dysfunction Colitis End stage renal disease on dialysis COPD (chronic obstructive pulmonary disease) Diabetes mellitus Transaminitis Intractable nausea and vomiting Hyperlipidemia HTN (hypertension) CHF (congestive heart failure), NYHA class III Pulmonary hypertension CAD (coronary artery disease) Neurogenic bladder COVID-19 Tobacco dependence Drug abuse Anemia Community acquired pneumonia Esophagitis Long-term insulin use History of pancreatitis Celiac disease Recurrent UTI Non-alcoholic fatty liver disease Arnold-Chiari malformation Diabetic gastroparesis -continue Reglan Diabetic neuropathy associated with type 1 diabetes mellitus Headache, common migraine, intractable, with status migrainosus Pleural effusion 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 History of lung surgery -s/p LLL lobectomy secondary to cavitary pneumonia (2017) History of endoscopy History of cholecystectomy Family History Grandfather Diabetes Mother CAD (coronary artery disease) Diabetes Heart disease Hypertension Brother Acute lymphoblastic leukemia (ALL) in child Grandmother Thyroid disease Denies family history of Colon cancer Ovarian cancer Prostate cancer Hyperlipidemia Breast cancer Uterine cancer Stroke Social History Smoking and tobacco/nicotine status: never used tobacco/nicotine Quit status (tobacco/nicotine): has quit using Former quit date comment: She previously smoked <1/2 PPD, quit July 2023. Second hand smoke exposure: Yes Alcohol intake: never Substance/Drug Use: current Household members: children Housing: House Marital status: Single Current occupational status: unemployed Physical Exam Narrative: EXAM NARRATIVE: General: Alert, no acute distress. Skin: Warm, dry. Head: Normocephalic, atraumatic. Neck: Supple, trachea midline. Eye: Extraocular movements are intact. Ears, nose, mouth and throat: mucosa moist. Cardiovascular: Regular, Normal peripheral perfusion. Respiratory: Lungs are clear to auscultation, respirations are non-labored, breath sounds are equal, Symmetrical chest wall expansion. Gastrointestinal: Soft, Nontender, Non distended Musculoskeletal: Normal ROM, no deformity. Neurological: Alert and oriented, No focal neurological deficit observed. Psychiatric: Cooperative, appropriate mood & affect. Course Vital Signs: Vital signs: Vital Signs Temperature 98.0 F 01/04/25 22:50 Pulse Rate 79 01/04/25 22:50 Respiratory Rate 22 H 01/04/25 22:50 Blood Pressure 159/81 01/04/25 22:50 Pulse Oximetry 98 01/04/25 22:50 Oxygen Delivery Me thod Room Air 01/04/25 22:50 MDM - Chest Pain Medical Decision Making Differential diagnosis for patient with chest pain includes but is not limited to and based on the above HPI, review of systems and physical exam: Pneumonia. unstable angina. angina. Acute coronary syndrome / HI. Pulmonary embolism. Costochondritis / musculoskeletal. Pleurisy. Pericarditis. Esophageal spasm. Pancreatis. Cholecystitis. Orders placed to evaluate differential diagnosis based on the above differential, HPI and physical exam EKG: Time 2248. Rate 76. Normal sinus rhythm, No ST-T changes, no ectopy, normal GA & QRS intervals, This was reviewed and interpreted by myself the ER physician at 2252 Lab Review: Laboratory results were reviewed and interpreted by myself the emergency room physician. No leukocytosis. No anemia. BUN and creatinine are 39 6.7 and potassium is mildly elevated at 6.1. She will need to go to dialysis tomorrow. I reviewed the patient's medical record. Reexamination: Patient remained stable. No increased work of breathing. No altered mental status. No focal motor deficits. Assessment and plan: Noncardiac chest pain - Discharged home - Discussed findings and plan with patient. Answered any questions. - Evaluation and treatment of this problem were appropriate in the emergency setting Lab Data 01/05/25 00:10 01/05/25 00:10 Laboratory Results WBC 8.98 10^3/uL (3.29-11.43) 01/05/25 00:10 RBC 3.38 10^6/uL (3.85-5.65) L 01/05/25 00:10 Hgb 10.50 g/dL (11.27-16.99) L 01/05/25 00:10 Hct 33.1 % (36-47) L 01/05/25 00:10 MCV 97.9 fl (85-98) 01/05/25 00:10 MCH 31.1 pg (27-33) 01/05/25 00:10 MCHC 31.7 g/dL (30-55) 01/05/25 00:10 RDW 14.1 % (12.1-15.1) 01/05/25 00:10 Plt Count 155 10^3/cmm (157-399) L 01/05/25 00:10 MPV 9.4 fL (7.4-10.4) 01/05/25 00:10 Neut % (Auto) 69.9 % 01/05/25 00:10 Lymph % (Auto) 17.1 % 01/05/25 00:10 Schuyler % (Auto) 7.3 % 01/05/25 00:10 Eos % (Auto) 4.9 % 01/05/25 00:10 Baso % (Auto) 0.6 % 01/05/25 00:10 Neut # (Auto) 6.27 10^3/uL (1.8-7.7) 01/05/25 00:10 Lymph # (Auto) 1.5 10^3/uL (0.8-4.8) 01/05/25 00:10 Schuyler # (Auto) 0.7 10^3/uL (0.2-0.9) 01/05/25 00:10 Eos # (Auto) 0.4 10^3/uL (0.0-0.8) 01/05/25 00:10 Baso # (Auto) 0.1 10^3/uL (0.0-0.1) 01/05/25 00:10 Nucleated RBC % (auto) 0 % 01/05/25 00:10 Nucleated RBCs # 0.0 /100WBC 01/05/25 00:10 Sodium 137 mmol/L (136-145) 01/05/25 00:10 Potassium 6.1 mmol/L (3.5-5.1) H 01/05/25 00:10 Chloride 97 mmol/L (98-107) L 01/05/25 00:10 Carbon Dioxide 22 mmol/L (22-29) 01/05/25 00:10 Anion Gap 24.1 (5-19) H 01/05/25 00:10 BUN 39 mg/dL (6-20) H 01/05/25 00:10 Creatinine 6.7 mg/dL (0.5-0.9) H* 01/05/25 00:10 GFR Calculation 6.9 mL/min (90-130) L 01/05/25 00:10 Glucose 172 mg/dL (65-115) H 01/05/25 00:10 Calculated Osmolality 297 mOsm/kg (285-295) H 01/05/25 00:10 Calcium 8.5 mg/dL (8.5-10.5) 01/05/25 00:10 Total Bilirubin 0.3 mg/dL (0.15-1.2) 01/05/25 00:10 AST 53 U/L (0-32) H 01/05/25 00:10 ALT 69 U/L (0-33) H 01/05/25 00:10 Alkaline Phosphatase 218 U/L (35-105) H 01/05/25 00:10 Troponin T Baseline 220 ng/L (0-10) H* 01/05/25 00:10 Troponin T 120 Minute 208.3 ng/L (0-10) H 01/05/25 02:30 Delta Troponin T -11.7 ABS# (0-10) L 01/05/25 02:30 Total Protein 8.1 g/dL (6.6-8.7) 01/05/25 00:10 Albumin 4.1 g/dL (3.5-5.2) 01/05/25 00:10 Globulin 4.0 g/dL (1.3-4.6) 01/05/25 00:10 No radiology studies performed this visit Discharge Plan Discharge Patient Disposition: Home Clinical Impression: Non-cardiac chest pain Condition: Stable Prescriptions: No Action ([facility]) AFO brace See Rx Instructions .Route .MEDSUPPLY Qty: 1 0RF Rx Instructions: As directed to the shoe guys ([facility]) diabetic shoes with 3 inserts See Rx Instructions .Route .MEDSUPPLY Qty: 1 0RF Rx Instructions: As directed to the shoe guys ([facility]) Dexcom G6 Applier Misc See Rx Instructions .Route Qty: 1 0RF Rx Instructions: As directed ([facility]) Dexcom G6 Sensor Device See Rx Instructions .Route Qty: 3 0RF Rx Instructions: As directed ([facility]) Dexcom G6 Transmitter Device See Rx Instructions .Route Qty: 1 0RF Rx Instructions: As directed atorvastatin 40 mg tablet 40 mg PO BEDTIME 30 Days Qty: 30 0RF aspirin 81 mg tablet,delayed release (DR/EC) 81 mg PO QAM 30 Days Qty: 30 0RF amlodipine 5 mg Tablet 5 mg PO DAILY Qty: 30 0RF bumetanide 1 mg tablet See Rx Instructions .ROUTE .COMPLEX Qty: 60 0RF Rx Instructions: TAKE 1 TABLET BY MOUTH twice DAILY ON NON-DIALYSIS DAYS cyclobenzaprine 10 mg tablet 10 mg PO TID Qty: 14 0RF sevelamer carbonate 800 mg Tablet 800 mg PO TID Qty: 90 0RF clonidine HCl 0.1 mg tablet See Rx Instructions .ROUTE .COMPLEX PRN (Reason: Blood Pressure) Rx Instructions: TAKE 1 TABLET IF SYSTOLIC BLOOD PRESSURE IS GREATER THAN 160, REPEAT ONCE IF SYSTOLIC BLOOD PRESSURE IS STILL OVER 160 AFTER 1 HOUR. gabapentin 100 mg Capsule 100 mg PO TID clopidogrel 75 mg tablet 75 mg PO DAILY escitalopram oxalate 10 mg tablet 10 mg PO DAILY hydralazine 25 mg Tablet 12.5 mg PO BID 30 Days Qty: 30 0RF nitroglycerin 0.4 mg Tablet, Sublingual 0.4 mg sublingual Q5M PRN (Reason: Chest Pain) 30 Days Qty: 30 0RF insulin aspart U-100 [Novolog FlexPen U-100 Insulin] 100 unit/mL (3 mL) insulin pen See Rx Instructions .ROUTE .COMPLEX Qty: 15 0RF Rx Instructions: Inject 3 times daily, subcut, after meals, based on low-dose sliding scale Discharge Orders: Discharge ED (Routine); Ordered 01/05/25 Ordered By: Dawna Briceno Referrals: Elizabeth Dougherty FNP [Primary Care Provider, Unknown] Patient Instructions: Noncardiac Chest Pain (ED), Opioid Safety, Pain Management, Patient Portal & Flaca Instructions Activity Restrictions/Additional Instructions: Thank you for choosing [facility] for your healthcare needs today. You have been screened and evaluated and felt safe for discharge. Health conditions do change or evolve sometimes and as such it is important that you follow up with your Primary Doctor to be re checked, 3-5 days is a general good time frame for follow up. You are always welcome to return to the ED for re assessment if your symptoms are worsening or you have new concerns Print Language: Botswanan Coding Level of Care Code ED Quill Stripper for Reji Chandler
[2025-01-05 03:01] LABS: Troponin 5 2HR Delta -11.7 ABS# (0-10)
[2025-01-05 03:02] LABS: Troponin 5 2HR 208.3 ng/L (0-10)
[2025-01-05 03:59] VITALS: BP 157/93; PULSE 84; O2SAT 97
== END 2025-01-05 03:20 | disposition home or self-care (01) ==
PROVIDERS: Emergency Provider Emergency Medicine; PCP Nurse Practitioner Family
DX: R07.89 Other chest pain (principal); E11.22 Type 2 diabetes mellitus with diabetic chronic kidney disease; N18.6 End stage renal disease; I50.9 Heart failure, unspecified; I25.10 Atherosclerotic heart disease of native coronary artery without angina pectoris; I27.20 Pulmonary hypertension, unspecified; I13.2 Hypertensive heart and chronic kidney disease with heart failure and with stage 5 chronic kidney disease, or end stage renal disease; E11.43 Type 2 diabetes mellitus with diabetic autonomic (poly)neuropathy; K31.84 Gastroparesis; Z79.02 Long term (current) use of antithrombotics/antiplatelets; Z79.899 Other long term (current) drug therapy; J44.9 Chronic obstructive pulmonary disease, unspecified; E11.40 Type 2 diabetes mellitus with diabetic neuropathy, unspecified; Z87.891 Personal history of nicotine dependence; Z95.5 Presence of coronary angioplasty implant and graft; Z87.01 Personal history of pneumonia (recurrent)
CPT/HCPCS: 36415; 80053; 84484; 85025; 93005; 99284

== ENCOUNTER → 2025-01-06 09:37 | Outpatient (BNVA) | payer MEDICARE, MEDICAID, SELFPAY | PROVIDERS: PCP Nurse Practitioner Family; Visit Provider Internal Medicine | DX: E10.65 Type 1 diabetes mellitus with hyperglycemia (principal); E78.2 Mixed hyperlipidemia; E16.0 Drug-induced hypoglycemia without coma; T38.3X5A Adverse effect of insulin and oral hypoglycemic [antidiabetic] drugs, initial encounter; R74.01 Elevation of levels of liver transaminase levels | CPT/HCPCS: 99214 ==

== ENCOUNTER 2025-01-11 10:07 | Outpatient (CLI) | payer MEDICARE, MEDICAID, SELFPAY ==
--- NOTE | 2025-01-11 10:15 | MRR_ITS ---
PROCEDURE INFORMATION: Exam: MR Left Lower Extremity Other Than Joint Without Contrast; Foot Exam date and time: 01/11/2025 10:34 AM Age: 39 years old Clinical indication: Foot; Pain associated with a soft tissue mass of the left hallux, specifically associated with the extensor hallucis longus tendon; Additional info: Soft tissue mass of left foot TECHNIQUE: Imaging protocol: Magnetic resonance imaging of the left lower extremity without contrast. Exam focused on the foot. COMPARISON: CR XR foot LT min 3V* [id number] 09/03/2024 4:37 PM FINDINGS: Limitations: Motion artifact, extensive on several sequences. Bones/joints: Ill-defined regions of patchy bone marrow edema in the calcaneus are greatest anteriorly. Additional regions of mild patchy bone marrow edema are noted in the cuboid and talus. LIGAMENTS: Lisfranc ligament: Unremarkable. No evidence of tear. TENDONS: Flexor tendons of foot: Unremarkable. No evidence of tear. Tibialis posterior tendon: Unremarkable as visualized. Peroneal tendons: Unremarkable as visualized. Extensor tendons of foot: Unremarkable. No evidence of tear. Tibialis anterior tendon: Unremarkable as visualized. Tarsal canal (Sinus tarsi): Unremarkable. Tarsal tunnel: Unremarkable. Soft tissues: A skin marker overlies the dorsal aspect of the 1st metatarsophalangeal joint. There are moderate hyper extension deformities involving the 1st through 5th metatarsophalangeal joints. Moderate posterior calcaneal enthesophyte formation is present. Plantar fascia: Unremarkable as visualized. MR/MR foot LT wo con* [id number] IMPRESSION: 1. The examination is limited by motion artifact. 2. No discrete abnormalities identified in the region of clinical concern/skin marker at the 1st metatarsophalangeal joint in the region of the extensor compartment. As this region is significantly limited by artifact, if there is continued clinical concern for a mass in this location, recommend repeat dedicated forefoot MRI with and without contrast for further assessment. 3. Ill-defined areas of bone marrow edema in the calcaneus, talus and cuboid are noted, which can be associated with contusion or stress changes. Less likely etiologies include neuropathic changes, or bone marrow edema syndrome. Osteomyelitis is less likely.
== END 2025-01-11 10:08 | disposition home or self-care (01) ==
LOC: RAD 10:08
PROVIDERS: PCP Nurse Practitioner Family; Visit Provider Podiatrist Foot & Ankle Surgery
DX: M79.89 Other specified soft tissue disorders (principal); R93.6 Abnormal findings on diagnostic imaging of limbs
CPT/HCPCS: 73718

== ENCOUNTER → 2025-01-12 14:55 | Outpatient (BNVA) | payer MEDICARE, MEDICAID, SELFPAY | PROVIDERS: PCP Nurse Practitioner Family; Visit Provider Internal Medicine | DX: I13.2 Hypertensive heart and chronic kidney disease with heart failure and with stage 5 chronic kidney disease, or end stage renal disease (principal); E10.22 Type 1 diabetes mellitus with diabetic chronic kidney disease; E10.65 Type 1 diabetes mellitus with hyperglycemia; N18.6 End stage renal disease; I50.23 Acute on chronic systolic (congestive) heart failure; Z99.2 Dependence on renal dialysis; Z79.4 Long term (current) use of insulin; I25.10 Atherosclerotic heart disease of native coronary artery without angina pectoris; E78.5 Hyperlipidemia, unspecified; Z79.02 Long term (current) use of antithrombotics/antiplatelets; Z79.82 Long term (current) use of aspirin; Z95.5 Presence of coronary angioplasty implant and graft; Z87.891 Personal history of nicotine dependence | CPT/HCPCS: 99214 ==

== ENCOUNTER → 2025-01-14 14:00 | Outpatient (BNVA) | payer MEDICARE, MEDICAID, SELFPAY | PROVIDERS: PCP Nurse Practitioner Family; Visit Provider Podiatrist Foot & Ankle Surgery | DX: E10.65 Type 1 diabetes mellitus with hyperglycemia (principal); L60.3 Nail dystrophy; M79.89 Other specified soft tissue disorders; N18.6 End stage renal disease; Z99.2 Dependence on renal dialysis; G62.9 Polyneuropathy, unspecified; Z79.4 Long term (current) use of insulin; Z89.421 Acquired absence of other right toe(s) | CPT/HCPCS: 11721; 99213 ==

== ENCOUNTER 2025-02-13 21:45 | Inpatient (IN) | payer MEDICARE, MEDICAID, SELFPAY ==
[2025-02-13 21:54] VITALS: BP 178/100; PULSE 74; RESP 18; TEMP 36.6; O2SAT 100; BMI 4156.1
--- OUTSIDE RECORDS SUMMARY | 2025-02-13 22:01 | XMS_ITS | Encounter Summary ---
Author Organization [facility], [facility] Address [address] [place] [address] Phone Care Team Providers Care Power System Engineer Name Role Phone Alexis Garcia MD Primary Care Provider [phone] Encounter Details Date Type Department Care Team (Late st Contact Info) Description 12/29/2024 TCM in Dialysis Clinic [facility] [place], [facility] [address] [place] [address] Yann Lozano NP [address] [place] [address] Social History Tobacco Use Types Packs/Day Years Used Date Smoking Tobacco: Never Assessed Comments Unknown Sex and Gender Information Value Date Recorded Sex Assigned at Not on file Legal Sex Female 10:18 AM EDT Gender Identity Not on file Sexual Orientation Not on file documented as of this encounter Progress Notes * Yann Lozano NP - 12/29/2024 12:00 AM CDT Patient: Donita Aguilar : 1985 C: [facility] Note Type: Dialysis TCM Service Date: 12/29/2024 The patient was seen for a caqk-we-btzg visit as part of Transitional Care Management services. Attending Fast Food Team Member: MACHO JOHANSEN Dialysis Location: [facility]IAL[facility] Schedule: Shift: 2 INTERACTIVE CONTACT This awdo-ed-cnwo visit occurred within 2 business days of the patient?s discharge. COMMENTS: Seen on HD machine during dialysis HOSPITALIZATION SUMMARY Patient transitioned from: Hospital Patient transitioned to: Home Admit Date: 12/26/2024 Discharge Date: 12/28/2024 Discharged info reviewed: No outstanding diagnostic tests and treatments Reason for admission: Admission Dx: CP Discharge Dx: Non-cardiac chest pain ESRD Atherosclerotic heart disease of [place] coronary artery with other forms of angina pectoris HTN Per hospital records, Dx PNA: given IV abt inpatient, discharged on augmentin. Reported as fluid heavy, noted as resolved with dialysis Dx fatty liver found on imaging HOME MEDICATIONS Discharge med list reviewed - changes reconciled and discussed with patient. Active treatment medication orders reviewed - no changes. COMMENTS: losartan and carvedilol discontinued, hydralazine initiated Sent home on Augmentin for PNA Current [facility] Medications amlodipine 5 mg tablet Take 1 by mouth every morning. Anti-Diarrheal (loperamide) 2 mg capsule Take 2 capsule by mouth every four to six hours. [PRN diarrhea] aspirin 81 mg tablet,delayed release (DR/EC) Take 1 tablet by mouth once a day. atorvastatin 40 mg tablet Take 1 tablet by mouth every night at bedtime. bumetanide 1 mg tablet Take 1 tablet by mouth once a day. [do not take on days you have HD] carvedilol 3.125 mg tablet Take 1 tablet by mouth twice a day. clonidine HCl 0.1 mg tablet Take 1 tablet by mouth as directed as needed. [Take one tablet for Systolic Blood Pressure (SBP) greater than 160. Repeat Clonidine 0.1mg tablet if SBP is greater than 160.] clopidogrel 75 mg tablet Take 1 tablet by mouth once a day. Cozaar 50 mg tablet 1 tablet by mouth every morning. [(Losartan)] escitalopram oxalate 20 mg tablet Take 1 tablet by mouth every night at bedtime. fluticasone furoate-vilanterol 100-25 mcg/dose blister with device Inhale 1 puff as directed once a day as needed. gabapentin 100 mg capsule Take 1 capsule by mouth three times a day. insulin aspart (niacinamide) 100 unit/mL (3 mL) insulin pen Inject 5 unit subcutaneously three times a day. [per sliding scale] insulin glargine 100 unit/mL (3 mL) insulin pen Inject 5 unit subcutaneously every evening. nitroglycerin 0.4 mg tablet, sublingual Place 1 tablet under tongue as directed as needed. [every 5 min as needed for chest pain] Plavix 75 mg tablet Take 1 tablet by mouth once a day. Sevelamer Carbonate Tablet 800 mg tablet Take 1 Tablet By Mouth Three times a day With Meals. [facility] Allergies Allergen: acetaminophen Reaction: Nausea/Vomiting TREATMENT MEDICATIONS ORDERS Iron Sucrose (Venofer) 50 mg IVP 1X Week During Dialysis 09/29/2024 - 09/28/2025 Vitamin D (Calcitriol) Oral 0.5 mcg ORAL 3X Week 12/03/2024 - 12/02/2025 PHYSICAL EXAM Exam performed. Vital Signs Reviewed. CV - Blood pressure noted. CV - Murmur present. No edema. EXT - No ulcers. COMMENTS: BP in goal on therapy today. Monitor for BP control DIALYSIS PRESCRIPTION COMMENTS: No dry weight on discharge records from hospital. No change to overall plan Treatment Data Treatment Date: 12/29/2024 started at: 8:30 AM Dialysate / Machine Temp (prescribed): 37.0*C Dialysate / Machine Temp (actual): 36.7*C BFR (prescribed): 350 BFR (average delivered): 350 DFR (prescribed): Manual 800 DFR (average delivered): 730 Prescribed Time: 03:30 Actual Time: 02:51 EDW (kg): 59.5 Dialyzer: 160NRe Optiflux Dialysate: 2.0 K, 2.5 Ca, 1.0 Mg, 100 Dextrose (G2251) Sodium: 138 Bicarb: 36 Pre Dialysis Vitals Pre BP Sit: 124/78 Pre Wt (kg): 63.0 EDW Deviation (kg): 3.5 Temp: 98.3*F Post Dialysis Vitals Post BP Sit: 121/74 Post Wt (kg): 61.4 CARE COORDINATION Post-discharge follow-up appointments reviewed with the patient. COMMENTS: Instructed to follow with cardiology, pcp, pulmonology and credit clerk as noted on discharge. EDUCATION Education relevant to the discharge diagnosis provided to the patient or caregiver COMMENTS: Reviewed testing, findings. Advised to call cardiology office, needs to be seen for follow up. Per hospital records, cardiology was consulted during stay. Reviewed following with PCP IMPRESSION & PLAN COMMENTS: Recheck potassium as patient states it was mentioned at hospital as elevated: on discharge it was 5.1. Monitor BP for stability Monitor for fever/chills, impaired breathing, symptoms of worsening PNA or secondary infection VISIT DIAGNOSES CPT Code 56131 - High complexity, seen within 7 days of discharge. I20.9 Angina pectoris (HCC) COMMENTS: Verified she has nitroglycerin on hand at home: reviewed appropriate usage. Instructed to call cardiology for follow up appointment K76.0 Fatty (change of) liver, not elsewhere classified COMMENTS: Newly dx on imaging. Per hospital records, has been referred to credit clerk. Monitor for liver dysfunction, assess for any needed support J18.9 Pneumonia, unspecified organism COMMENTS: Monitor for impaired perfusion, fever/chills, increased SOB. If symptoms present, send for CXray. Advised to call pulmonology for follow up as referred by hospital I25.118 Atherosclerotic heart disease of [place] coronary artery with other forms of angina pectoris COMMENTS: RCA is moderate size and caliber vessel which is dominant had proximal 40% stenosis. Left main has luminal irregularity with distal 10% stenosis. Cardiology recommended medical management. Negative for angina on assessment today Reviewed symptoms, usage of nitro: instructed to call cardiology for follow up appt. I24. Atherosclerosis of other coronary artery bypass graft(s) with unspecified angina pectoris COMMENTS: LAD has luminal irregularity with patent previously placed proximal stent with mild in-stent restenosis. Lcx has luminal irregularity without significant in-stent restenosis in ostia to proximal stent. Distal RCA 40% in-stent restenosis. LVEDP was moderately elevated 22 mmHg. Cardiology advised medical management. Negative for angina on assessment today Reviewed symptoms, usage of nitro: instructed to call cardiology for follow up appt. Signed by: YANN LOZANO NP on 12/29/2024 at 07:00:39 PM Transcribed by: YANN LOZANO NP on 12/29/2024 at 07:00:39 PM documented in this encounter Plan of Treatment Not on file documented as of this encounter Visit Diagnoses Not on filedocumented in this encounter Care Teams Power System Engineer Relationship Specialty Start Date End Date Alexis Garcia MD [address] [place] [address] PCP - General Family Medicine 04/16/22 documented as of this encounter
--- OUTSIDE RECORDS SUMMARY | 2025-02-13 22:01 | XMS_ITS | Clinical Summary ---
Author Organization [facility] Address [address] [facility] Attn: [place] [id number] Care Team Providers Care Magneto Electrician Name Role Phone Shravan Jones DO Primary [...] subcutaneous injection. Active naloxone (NARCAN) 4 mg/spray [place], Non-Aerosol EMERGENCY USE ONLY: Administer 1 spray [...] regarding vascular access for dialysis for ESRD ([facility]) Take 1 Tablet (5 mg) by [...] troponin 09/22/2023 Coronary artery disease invo lving [place] coronary artery of [place] heart without angina pectoris 09/21/2023 End stage [...] Encounters Date Type Department Care Team Description 02/09/2025 External Device Data ST[facility] ABSTRACTION Provider, Abstract 02/02/2025 External Device Data ST[facility] ABSTRACTION Provider, Abstract 01/12/2025 External Device Data [facility] ABSTRACTION Provider, Abstract 12/30/2024 Orders Only [facility] Gastroenterology- [address] [place] [address] Elizabeth Dougherty FNP Fatty liver (Primary Dx) 12/15/2024 External Device Data STL ABSTRACTION Provider, Abstract 12/04/2024 7:00 AM CDT - 12/04/2024 11:59 PM CDT Hospital Encounter [facility] Interventional Radiology [address] [facility] [place] [phone] Chey Navas MD Birlew, Ryan Avery, MD Discharge Disposition: Home or Self Care 12/03/2024 Telephone [facility] Interventional Radiology [address] 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 Last 3 Months Immunizations Immunization Administration [...] and Family Not on file 09/22/2023 Attends [employer] Not on file 09/21 Active Member [...] on file Legal Sex Female 3:34 PM SCIENCE AND OPERATIONS OFFICER Gender Identity Not on file Sexual [...] 12/04/2024 7:16 AM CDT Plan of Treatment Upcoming Encounters Date Type Department Care Team (Late st Contact Info) Description 05/19/2025 9:30 AM SCIENCE AND OPERATIONS OFFICER Office Visit [facility] Gastroenterology- [place] [address] [facility] [address] [place] [address] Abel Menon D, DO [address] [facility] [address] [place] [address] Health Maintenance Due Date Last Done Comments DTAP/TDAP/TD VACCINES (3 - Tdap) 03/14/2000 03/13/20 00, 09/25/1990 HPV VACCINES (1 - 3-dose series) 2001 DIABETES ANNUAL FOOT EXAM 2004 DIABETES MICROALBUMIN ANNUAL SCREEN 2004 HPV/Cotest (21-29) 2007 CERVICAL CANCER SCREENING 2016 HPV/Cotest (30-65) 2016 PAP SMEAR 2016 LDL CHOLESTEROL ANNUAL 09/20/2024 09/21/2023 INFLUENZA VACCINE (#1) 2025 DIABETES HBA1C Q 6 MONTHS 05/28/20252024, 09/21/2023, 09/14/2023, Additional history exists DIABETES ANNUAL RETINAL EXAM 07/08/2025, 07/08/2024, 07/08/2024, Additional history exists HEPATITIS B VACCINES Completed 03/13/2000, 10/11/1999, 09/06/1999 Medical Devices Implanted Type Area Install Technician Device Identifier Shelf Expiration Date Model / Serial / Lot Max tracy Flour [id number] - [id number] Implanted:Qty : 2 on 12/17/2016 by Deandre Alan MD Biological Left: Lung CR BARD- [employer]OL INC 09/19/2019 [id number] / / [id number] Cath Dialysis Glidepath 14.5fr 24cm Std [id number] - [id number] Implanted:Qty : 1 on 03/18/2024 by Asif Mcclellan MD at [facility] Catheter Right: Chest BARD ANGEL VASC 09/21/2025 [id number] / / [id number] Clip Ligating Horizon Red 482694 - Csc - [id number] Implanted:Qty : 1 on 08/10/2024 by Chato Fitch MD at [facility] Clip Left: Arm TELE[employer]LEX INC [id number] 05/16/2029 192694 / / [id number] Clip Ligating Horizon Med Ti 814475 - Csc - [id number] Implanted:Qty : 1 on 08/10/2024 by Chato Fitch MD at [facility] Clip Left: Arm TELEFLEX- WECK CLOSURE SYS [id number] 03/31/2029 [id number] / / [id number] Broadcast Chief Engineer Ligaclip Sml Mcs20 - [id number] Implanted:Qty : 1 on 08/10/2024 by Chato Fitch MD at [facility] Clip Left: Arm J&J- [employer]ON [employer] [id number] 03/23/2029 MCS20 / / [id number] Closure Perclose Prostyle Sut Mediate 29454-37 - [id number] Implanted:Qty : 1 on 09/24/2023 by Janell Beauchamp MD at [facility] Closure Device N/A: Groin LOVE- VASC DEVICE [id number] 06/23/2025 89646-05 / / [id number] Closure Perclose Prostyle Sut Mediate 72193-17 - [id number] Implanted:Qty : 1 on 10/24/2023 by Janell Beauchamp MD at [facility] Closure Device Right: Groin LOVE- VASC DEVICE [id number] 07/24/2025 02914-68 / / [id number] Oil Slc 8.5ml [id number] - [id number] Implanted:Qty : 1 on 06/23/2024 by Janey Carrera MD at [facility] Right: Eye YINA LAB 12/21/2026 [id number] / [id number] / [id number] Graft Vasc Propaten 4-6chx99bz [id number] - [id number] Implanted:Qty : 1 on 08/10/2024 by Chato Fitch MD at [facility] Graft Left: Arm [employer] [id number] 05/21/2027 [id number] / [id number] / Agent Hemostat Surgicel 2x3in 1952s - [id number] Implanted:Qty : 1 on 08/10/2024 by Chato Fitch MD at [facility] Hemostatic Left: Arm J&J- ETHICON INC [id number] 12/21/20283S / / [id number] Hemostatic Surgiflo 8ml W/ Thrombin 2994 - [id number] Implanted:Qty : 1 on 08/10/2024 by Chato Fitch MD at [facility] Hemostatic Left: Arm J&J- ETHICON INC [id number] 10/21/2025 2994 / / [id number] Agent Hemostat Surgicel 2x3in 1952s - [id number] Implanted:Qty : 1 on 08/10/2024 by Chato Fitch MD at [facility] Hemostatic Left: Arm J&J- ETHICON INC [id number] 12/21/20283S / / [id number] Stent Synergy Xd 3.0x48mm Evrlms Elut [id number] - [id number] Implanted:Qty : 1 on 09/24/2023 by Janell Beauchamp MD at [facility] Stent N/A: Coronary BOSTON SCI GENEVIEVE [id number] 03/31/2025 [id number] 300 / / [id number] Stent Synergy Xd 2.69l02cv Evrlms Elut [id number] 0 - [id number] Implanted:Qty : 1 on 10/24/2023 by Janell Beauchamp MD at [facility] Stent Left: Coronary Superhuman GENEVIEVE [id number] 08/19/2024 [id number] 220 / / [id number] Control Implant Funmi Procedures Procedure Name Priority Date/Time Associated Diagnosis Comments IR FISTULOGRAM Routine 12/04/2024 9:05 AM CDT ESRD (end stage renal disease) ([facility]) LIPID PANEL Routine 09/21/2023 6:47 PM CDT [...] dialysis. DIAGNOSIS: ESRD (end stage renal disease) ([facility]). Medications: Fentanyl and versed were titrated to effect. Moderate (conscious) sedation for this procedure was performed with continuous physician supervision. Medical history, physical exam, drug dosages, routes of drug administration, monitoring data, and precise times of service are documented in the medical record on the [facility]-approved form, 'Sedative/Analgesic Administration for Diagnostic and [...] transition dilator is exchanged for a 6 Chinese vascular sheath. An 8 mm angioplasty balloon [...] dialysis. DIAGNOSIS: ESRD (end stage renal disease) ([facility]). Medications: Fentanyl and versed were titrated to effect. Moderate (conscious) sedation for this procedure was performed with continuous physician supervision. Medical history, physical exam, drug dosages, routes of drug administration, monitoring data, and precise times of service are documented in the medical record on the [facility]-approved form, 'Sedative/Analgesic Administration for Diagnostic and [...] transition dilator is exchanged for a 6 Chinese vascular sheath. An 8 mm angioplasty balloon [...] (ABNORMAL) LIPID PANEL (09/21/2023 6:47 PM CDT) [facility] CHOLESTEROL 96 <200 mg/dL 09/21/2023 10:[address] [facility] TRIGLYCERIDE 164(H) <150 mg/dL 09/21/2023 10:[address] [facility] HDL 36(L) 40 - 59 mg/dL 09/21/2023 10:[address] [facility] LDL CALCULATED 27 <100 mg/dL 09/21/2023 10:[address] [facility] NON-HDL CHOLESTEROL 60 <130 mg/dL 09/21/2023 10:[address] [facility] Blood Venipuncture / Unknown 09/21/2023 6:47 PM CDT 09/21/2023 7:10 PM CDT [facility] LABORATORY [facility] - 09/21/2023 10:29 PM CDT TOTAL [...] Lacy MD CHEMISTRY ORDERABLES Final R esult Performing Organization Address City/[facility]/ZIP Co de Phone Number [facility] CLIA # [id number] [address] [address] * (ABNORMAL) HEMOGLOBIN A1C (09/21/2023 6:46 PM CDT) [facility] Signature HEMOGLOBIN A1C 6.8(H) <=5.6 % 09/23/2023 9:24 AM CDT [facility] [place] [facility] EST. AVG GLUCOSE, A1C 148 mg/dL 09/23/2023 9:24 AM CDT [facility] [place] [facility] Blood Venipuncture / Unknown 09/21/2023 6:46 PM CDT 09/21/2023 7:08 PM CDT Narrative [facility] [place] [facility] - 09/23/2023 9:24 AM CDT HGB A1C INTERPRETATION NORMAL: <5.7% PRE-DIABETES: 5.7 - 6.4% DIABETES: 6.5% OR GREATER Luiz Lacy MD CHEMISTRY ORDERABLES Final R esult Performing Organization Address [facility] Co de Phone Number [facility] CLIA # [id number] [address] [address] from Last 3 Months or Most Recently Relevant to Health Maintenance [place] [id number] [place] Advance Directives For more information, please contact: [phone] * Full Code (Latest Code Status on File) Date Activated Date Inactivated Comments 10/24/2023 2:34 PM 10/25/2023 11:47 AM * Full Code Date Activated Date Inactivated Comments 10/24/2023 9:13 AM 10/24/2023 2:34 PM * Full Code Date Activated Date Inactivated Comments 09/24/2023 3:14 PM 09/25/2023 9:51 PM * Full Code Date Activated Date Inactivated Comments 09/21/2023 5:50 PM 09/24/2023 3:14 PM Care Teams Magneto Electrician Relationship Specialty Start Date End Date Shravan Jones DO [address] [address] PCP - General Family Practice 12/04/16
--- OUTSIDE RECORDS SUMMARY | 2025-02-13 22:01 | XMS_ITS | Patient Health Record ---
Author Organization [facility] Address [address] [place], [place] [id number] Care Team Providers Care Digital Color Press Operator Name Role Phone Kayla ALEMAN, Mao Unavailable [phone] Elizabeth Reveles Unavailable Unavailable Allergies Allergen (clinical drug ingredient) Drug/Non Drug Allergy documented on EMR Reaction Allergy Type Onset Date Status Not verifiable (uncoded) Unknown Allergy Active Reason For Referral No Information Plan Of Treatment No Information Insurance Providers Payer Name Payer Address Payer Phone Subscriber Number Group Number Insured Name Patient Relationship to Insured Coverage Start Date Coverage End Date [facility] [address] [address] [place] [address] [phone] [id number] Donita Aguilar Self - patient is the insured Medical (General) History Medical History History ICD Code See scanned documentation Surgical History Surgery Date(Month/Year) Cholecystectomy, perfromed at [facility] in [place], 02/02/15 Left lower lung lobectomy, 11/2016
--- OUTSIDE RECORDS SUMMARY | 2025-02-13 22:01 | XMS_ITS | Clinical Summary ---
Author Organization [facility] Facility Address [address] [address] Care Team Providers Care Underlay Stitcher Name Role Phone Alexis Garcia MD Primary Care Provider [phone] Encounters Date Type Department Care Team Description 02/11/2025 Orders Only [place] [facility], [facility] [address] [place] [address] Chey Navas MD 02/09/2025 Treatment [facility], [facility] [address] [place] [address] Chey Navas MD End stage renal disease; Dependence on renal dialysis 02/04/2025 Orders Only [place] [facility], [facility] [address] [place] [address] Chey Navas MD 02/02/2025 Treatment [facility], [facility] [address] [place] [address] Karlene Cespedes NP End stage renal disease; Dependence on renal dialysis 01/28/2025 Treatment [facility] [employer], [facility] [address] [place] [address] Melissa Wiley NP End stage renal disease; Dependence on renal dialysis 01/28/2025 Orders Only [place] [facility], [facility] [address] [place] [address] Chey Navas MD 01/21/2025 Orders Only [place] [facility], [facility] [address] [place] [id number] Chey Navas MD 01/14/2025 [facility] [address] [place] [address] Chey Navas MD 01/12/[address] [place] [address], [facility] [address] [place] [address] Cehy Navas MD End stage renal disease; Dependence on renal dialysis 01/07/2025 [facility] [address] [place] [address] Chey Navas MD 01/05/[address] [place] [address], [facility] [address] [place] [address] Karlene Cespedes NP End stage renal disease; Dependence on renal dialysis 12/31/2024 Orders Only [facility], [facility] [address] [place] [address] Chey Navas MD 12/29/2024 TCM in Dialysis Clinic [address] [place] [address], [facility] [address] [place] [phone] Melissa Wiley NP 12/29/[address] [place] [address], [facility] [address] [place] [address] Melissa Wiley NP End stage renal disease; Dependence on renal dialysis 12/24/2024 [facility] [address] [place] [address] Chey Navas MD 12/22/[address] [place], [place] [address], [facility] [address] [place] [address] Melissa Wiley NP End stage renal disease; Dependence on renal dialysis 12/17/2024 [facility] Only [facility], [facility] [address] [place] [address] Chey Navas MD 12/15/[address] [place] [address], [facility] [address] [place] [address] Karlene Cespedes NP End stage renal disease; Dependence on renal dialysis 12/10/2024 Orders Only [facility], [facility] [address] [place] [address] Chey Navas MD 12/10/[address] [place] [address], [facility] [address] [place] [address] Chey Navas MD End stage renal disease; Dependence on renal dialysis 12/07/2024 Refill [facility], [facility] [address] [place] [address] Melissa Wiley NP 12/03/2024 Orders Only [facility], [facility] [address] [place] [address] Chey Navas MD 12/01/[address] [place] [address], [facility] [address] [place] [address] Karlene Cespedes NP End stage renal disease; Dependence on renal dialysis 11/26/2024 Orders Only [facility], [facility] [address] [place] [address] Chey Navas MD 11/24/[address] [place] [address], [facility] [address] [place] [address] Karlene Cespedes NP End stage renal disease; Dependence on renal dialysis 11/19/2024 Orders Only [facility], [facility] [address] [place] [address] Chey Navas MD 11/19/2024 Treatment [facility] [address] [place] [phone] Chey Navas MD End stage renal disease; Dependence on renal dialysis from Last 3 Months Social History Tobacco Use Types Packs/Day Years Used Date Smoking Tobacco: Never Assessed Comments Unknown Sex and Gender Information Value Date Recorded Sex Assigned at Not on file Legal Sex Female 10:18 AM EDT Gender Identity Not on file Sexual Orientation Not on file Plan of Treatment Health Maintenance Due Date Last Done Comments Hepatitis B Vaccine (4 of 4 - Risk Dialysis Recombivax 3-dose series) 03/13/2001 03/13/2000, 000, 09/06/1999 Pneumococcal Vaccine: Peds ( 0 to 5 Years) and At-Risk Patients (6 to 49 Years) (2 of 2 - PCV) 08/04/2018 08/04/2017 Diabetes: Pedal Pulse Checked 09/12/2023 Diabetes: Sensory Foot Exam 09/12/2023 Diabetes: Visual Foot Exam 09/12/2023 Influenza Vaccine (#1) 2025 Diabetes: Hemoglobin A1C 02/26/2025 025, 08/27/2024, 05/29/2024, Additional history exists Diabetes: Ophthalmology Exam 05/20/2025 05/20/2024 Procedures Procedure Name Priority Date/Time Associated Diagnosis Comments HEMATOLOGY Routine 02/11/2025 HEMATOLOGY Routine 02/04/2025 [facility] RESULTS Routine 01/28/2025 HD KINETICS Routine 01/28/2025 POST CHEMISTRY Routine 01/28/2025 CHEMISTRY Routine 01/28/2025 HEMATOLOGY Routine 01/28/2025 CHEMISTRY Routine 01/28/2025 HEMATOLOGY Routine 01/21/2025 HEMATOLOGY Routine 01/14/2025 HEMATOLOGY Routine 01/07/2025 CHEMISTRY Routine 12/31/2024 HEMATOLOGY Routine 12/31/2024 [facility] RESULTS Routine 12/24/2024 HD KINETICS Routine 12/24/2024 POST CHEMISTRY Routine 12/24/2024 CHEMISTRY Routine 12/24/2024 HEMATOLOGY Routine 12/24/2024 HEMATOLOGY Routine 12/17/2024 HEMATOLOGY Routine 12/10/2024 HEMATOLOGY Routine 12/03/2024 [facility] RESULTS Routine 11/26/2024 HD KINETICS Routine 11/26/2024 POST CHEMISTRY Routine 11/26/2024 CHEMISTRY Routine 11/26/2024 SPECIAL CHEMISTRY Routine 11/26/2024 HEMATOLOGY Routine 11/26/2024 CHEMISTRY Routine 11/26/2024 HEMATOLOGY Routine 11/19/2024 CHEMISTRY Routine 11/19/2024 from Last 3 Months Results * (ABNORMAL) HEMATOLOGY (02/11/2025) Only the most recent of13 resultswithin the time period is included. Hemoglobin 8.8(L) 12.0 - 16.0 g/dL [facility] Hemoglobin x 3 26.4(L) 36.0 - 48.0 % [facility] 02/11/2025 02/12/2025 10: 20 AM CDT Narrative [facility] - 02/12/2025 Unless otherwise specified, test(s) performed at: [facility], [address] [place], [place] [id number] VARNISHER APPRENTICE: Jose Luis France M.D. For any questions, please call customer service at FREQUENCY:OTHER Resulting Agency Comment Specimen source: Blood us Chey Navas MD LAB BLOOD ORDERABLES Final Re sult Performing Organization Address [facility] de Phone Number [facility] See order comments or contact performing lab Unknown, [place] * HD KINETICS (01/28/2025) Only the most recent of3 resultswithin the time period is included. % Urea Reduction 78 65 - 80 % [facility] 01/28/2025 01/29/2025 2:0 2 PM CDT Narrative Resulting Agency Comment Specimen source: Plasma us Chey Navas MD LAB BLOOD ORDERABLES Final Re sult Performing Organization Address [facility] de Phone Number [facility] See order comments or contact performing lab Unknown, [place] * POST CHEMISTRY (01/28/2025) Only the most recent of3 resultswithin the time period is included. BUN Post Dialysis 13 6 - 19 mg/dL [facility] 01/28/2025 01/29/2025 2:0 2 PM CDT Narrative [facility] - 01/30/2025 Unless otherwise specified, test(s) performed at: [facility], [address] [place], [place] [id number] VARNISHER APPRENTICE: Jose Luis France M.D. For any questions, please call customer service at FREQUENCY:MONTHLY Resulting Agency Comment Specimen source: Plasma us Chey Navas MD LAB BLOOD ORDERABLES Final Re sult Performing Organization Address [facility] de Phone Number [facility] See order comments or contact performing lab Unknown, [place] * (ABNORMAL) [facility] (01/28/2025) Only the most recent of7 resultswithin the time period is included. BUN 59(H) 6 - 19 mg/dL [facility] Creatinine 6.56(H) 0.60 - 1.30 mg/dL [facility] BUN/Creatinine Ratio 9.0(L) 10.0 - 20.0 [facility] Sodium 137 136 - 145 mEq/L [facility] Potassium 5.3(H) 3.5 - 5.1 mEq/L [facility] Chloride 99 96 - 108 mEq/L [facility] Bicarbonate (CO2) 24 22 - 29 mEq/L [facility] Calcium 8.5 8.4 - 10.2 mg/dL [facility] Corrected Calcium 8.9 8.4 - 10.2 mg/dL [facility] Comment: Corrected Calcium is not equivalent to measured Ionized Calcium. Phosphorus 7.6(H) 2.6 - 4.5 mg/dL [facility] Calcium Phosphorus Product 65(H) 0 - 54 [facility] Calcium Phosporus Product, Cor 68(H) 0 - 54 [facility] Total Protein 6.7 6.0 - 8.5 g/dL [facility] Albumin 3.5 3.5 - 5.2 g/dL [facility] Globulin, Total 3.2 2.0 - 4.0 g/dL [facility] A/G Ratio 1.1 1.0 - 2.0 [facility] Glucose 163(H) 70 - 100 mg/dL [facility] Iron 109 30 - 160 mcg/dL [facility] UIBC 103(L) 155 - 355 mcg/dL [facility] TIBC 212 185 - 515 mcg/dL [facility] Iron Saturation (TSat) 51 20 - 55 % [facility] 01/28/2025 01/29/2025 2:1 3 PM CDT Narrative [facility] - 01/29/2025 Unless otherwise specified, test(s) performed at: [facility], [address] [place] [address] VARNISHER APPRENTICE: Jose Luis France M.D. For any questions, please call customer service at FREQUENCY:MONTHLY Resulting Agency Comment Specimen source: Serum us Chey Navas MD LAB BLOOD ORDERABLES Final Re sult [facility] See order comments or contact performing lab Unknown, [place] * [facility] Lab Results (01/28/2025) Only the most recent of3 resultswithin the time period is included. WSTDKT/V 2.6 [facility] eKdrt/V 1.56 [facility] nPCR_HD 1.12 [facility] spKt/V (Daugirdas II) 1.79 [facility] eKt/V Gotch 1.56 [facility] e Center eNPCR 1.05 [facility] PCR 57.64 [facility] spKt/V Gotch 1.81 [facility] [place] eKt/V (Tattersall) 1.55 [facility] 01/28/2025 01/28/2025 [facility] Ordering Provider LAB BLOOD ORDERABLES Final Result Performing Organization Address [facility] Co de Phone Number [facility] Contact Performing lab Unknown, [place] * (ABNORMAL) SPECIAL CHEMISTRY (11/26/2024) Hemoglobin A1C 6.2(H) 4.8 - 5.9 % [facility] 11/26/2024 11/27/2024 10: 21 AM CDT Narrative [facility] - 11/27/2024 Unless otherwise specified, test(s) performed at: [facility], [address] [place] [address] VARNISHER APPRENTICE: Jose Luis France M.D. For any questions, please call customer service at FREQUENCY:MONTHLY Resulting Agency Comment Specimen source: Blood Chey Navas MD LAB BLOOD BANK TEST ORDERABLE S Final Result Performing Organization Address City/[facility]/ZIP Co de Phone Number [facility] See order comments or contact performing lab Unknown, [place] from [place] [address] [place] [address] [place] [address] Medicaid [place] ([id number]) Medicare Care Teams Underlay Stitcher Relationship Specialty Start Date End Date Alexis Garcia MD [address] [place] [address] PCP - General Family Medicine 04/16/22
--- OUTSIDE RECORDS SUMMARY | 2025-02-13 22:02 | XMS_ITS | Encounter Summary ---
Author Organization [facility] Address [address] [place] [address] Care Team Providers Care Occupational Ther Name Role Phone Shravan Jones DO Primary Care Provider [phone] Encounter Details Date Type Department Care Team (Late st Contact Info) Description 12/28/2016 Lab Requisition [facility] [address] [place] [address] David Ortega MD [address] [place] [address] Social History Tobacco Use Types Packs/Day Years Used Date Smoking Tobacco: Every Day Cigarettes Comments:pt lethargic Comments Unknown Sex and Gender Information Value Date Recorded Sex Assigned at Not on file 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 Gender Identity Not on file Sexual Orientation [...] * PHOSPHORUS (12/28/2016 2:39 AM CDT) Pathologist [facility] PHOSPHORUS 3.4 2.5 - 4.9 mg/dL 12/28/2016 5:42 AM CDT [facility] Blood Collection / Unknown 12/28/2016 2:39 AM CDT 12/28/2016 5:01 AM CDT David Ortega MD CHEMISTRY ORDERABLES Final Res ult Performing Organization Address [facility] Co de Phone Number [facility] CLIA# [id number] [address] [place] [id number] * MAGNESIUM LEVEL (12/28/2016 2:39 AM CDT) [facility] MAGNESIUM 1.6 1.6 - 2.6 mg/dL 12/28/2016 5:42 AM CDT [facility] Blood Collection / Unknown 12/28/2016 2:39 AM CDT 12/28/2016 5:01 AM CDT Narrative [facility] - 12/28/2016 5:42 AM CDT Due to Auto [employer] update, MG+ reference range has changed from 1.8 - 2.4 mg/dL to the new reference range of 1.6 - 2.6 mg/dL. This will have limited patient impact. David Ortega MD CHEMISTRY ORDERABLES Final Res ult Performing Organization Address [facility] Co de Phone Number [facility] CLIA# [id number] [address] [place] [id number] * PROTIME-INR (12/28/2016 2:39 AM CDT) [facility] PROTIME 15.0 12.3 - 15.5 Seconds 12/28/2016 5:16 AM CDT [facility] INR 1.1 0.8 - 1.2 12/28/2016 5:16 AM CDT [facility] Blood Collection / Unknown 12/28/2016 2:39 AM CDT 12/28/2016 5:01 AM CDT [place] [facility] - 12/28/2016 5:16 AM CDT Expected Values for INR: DVT/PE Goal INR 2.5; range 2.0 - 3.0 Valve Replacement Tissue Goal INR 2.5; range 2.0 - 3.0 Valve Replacement Mechanical Goal INR 3.0; range 2.5 - 3.5 POST-ND Goal INR 2.5; range 2.0 - 3.0 or Goal INR 3.0; range 2.5 - 3.5 Atrial Fibrillation Goal INR 2.5; range 2.0 - 3.0 Ischemic Stroke Goal INR 2.5; range 2.0 - 3.0 For additional information see Guidelines for Anticoagulation available from the pharmacy Wendy Vargas Pharm D. David Ortega MD HEMATOLOGY ORDERABLES Final Re sult [facility] CLIA# [id number] [address] [place] [id number] * (ABNORMAL) PTT (12/28/2016 2:39 AM CDT) PTT 39.1(H) 24.8 - 38.8 seconds 12/28/2016 5:16 AM CDT [facility] Blood Collection / Unknown 12/28/2016 2:39 AM CDT 12/28/2016 5:01 AM CDT [place] [facility] - 12/28/2016 5:16 AM CDT Therapeutic Range: Hi-level PE/DVT heparin protocol 80.1 - 95.0 sec Lo-level PE/DVT heparin protocol 70.1 - 85.0 sec Cardiac Heparin Protocol 70.1 - 100.0 sec David Ortega MD HEMATOLOGY ORDERABLES Final Re sult [facility] CLIA# [id number] [facility] [place] [address] * (ABNORMAL) CBC WITH DIFFERENTIAL (12/28/2016 2:39 AM CDT) Pathologist [facility] WBC 11.0 4.5 - 11.0 K/uL 12/28/2016 5:09 AM CDT [facility] RBC 3.80(L) 4.20 - 5.40 M/uL 12/28/2016 5:09 AM CDT [facility] HEMOGLOBIN 9.3(L) 12.0 - 16.0 g/dL 12/28/2016 5:[facility] 30.6(L) 36.0 - 46.0 % 12/28/2016 5:09 AM CDT [facility] MCV 80.5(L) 84.0 - 103.0 fL 12/28/2016 5:09 AM CDT [facility] MCH 24.5(L) 27.0 - 34.0 pg 12/28/2016 5:09 AM CDT [facility] MCHC 30.4 30.0 - 35.0 g/dL 12/28/2016 5:09 AM CDT [facility] RDW 17.3(H) 11.0 - 14.5 % 12/28/2016 5:09 AM T [facility] RDW-STDEV 51.8 37.0 - 54.0 fL 12/28/2016 5:09 AM CDT [facility] PLATELETS 757(H) 140 - 440 K/uL 12/28/2016 5:09 AM CDT [facility] MPV 8.9 8.9 - 12.8 fL 12/28/2016 5:09 AM CDT [facility] NEUTROPHILS 65 42 - 75 % 12/28/2016 5:09 AM CDT [facility] LYMPHOCYTES 19(L) 24 - 44 % 12/28/2016 5:09 AM CDT [facility] MONOCYTES 10 2 - 10 % 12/28/2016 5:09 AM CDT [facility] EOSINOPHILS 5 0 - 7 % 12/28/2016 5:09 AM CDT [facility] BASOPHILS 1 0 - 1 % 12/28/2016 5:09 AM CDT [facility] IMMATURE GRANULOCYTES 1 0 - 2 % 12/28/2016 5:09 AM CDT [facility] NEUTROPHIL ABSOLUTE 7.19 2.00 - 8.00 K/uL 12/28/2016 5:09 AM CDT [facility] LYMPHOCYTE ABSOLUTE 2.04 1.20 - 4.00 K/uL 12/28/2016 5:09 AM CDT [facility] MONOCYTE ABSOLUTE 1.06(H) 0.10 - 0.60 K/uL 12/28/2016 5:09 AM CDT [facility] EOSINOPHIL ABSOLUTE 0.60 0.00 - 0.70 K/uL 12/28/2016 5:09 AM CDT [facility] BASOPHILS ABSOLUTE 0.07 0.00 - 0.20 K/uL 12/28/2016 5:09 AM CDT [facility] IMMATURE GRANULOCYTES ABSOLUTE 0.07 0.00 - 0.10 K/uL 12/28/2016 5:09 AM T [facility] Blood Collection / Unknown 12/28/2016 2:39 AM CDT 12/28/2016 5:01 AM CDT us David Ortega MD HEMATOLOGY ORDERABLES Final Re sult [facility] CLIA# [id number] [address] [place] [address] * (ABNORMAL) COMPREHENSIVE METABOLIC PANEL (12/28/2016 2:39 AM CDT) SODIUM 143 136 - 145 mmol/L 12/28/2016 5:47 AM CDT [facility] POTASSIUM 3.3(L) 3.5 - 5.1 mmol/L 12/28/2016 5:47 AM [facility] CHLORIDE 103 98 - 107 mmol/L 12/28/2016 5:47 AM [facility] CO2 29 21 - 32 mmol/L 12/28/2016 5:47 AM [facility] CALCIUM 8.9 8.4 - 10.1 mg/dL 12/28/2016 5:47 AM [facility] BUN 13 7 - 17 mg/dL 12/28/2016 5:47 AM [facility] CREATININE 0.70 0.55 - 1.02 mg/dL 12/28/2016 5:47 AM [facility] GLUCOSE 46(LL) 74 - 106 mg/dL 12/28/2016 5:47 AM [facility] TOTAL PROTEIN 8.2 6.4 - 8.2 g/dL 12/28/2016 5:47 AM [facility] ALBUMIN 1.8(L) 3.4 - 5.0 g/dL 12/28/2016 5:47 AM [facility] BILIRUBIN TOTAL 0.2 0.2 - 1.0 mg/dL 12/28/2016 5:47 AM [facility] ALKALINE PHOSPHATASE 93 25 - 100 U/L 12/28/2016 5:47 AM [facility] AST 18 15 - 37 U/L 12/28/2016 5:47 AM [facility] ALT 18 13 - 61 U/L 12/28/2016 5:47 AM [facility] GFR >60 >=60 mL/min/1.7 3 sq meter 12/28/2016 5:47 AM [facility] Comment: eGFR has not been validated [...] 3 sq meter 12/28/2016 5:47 AM CDT [facility] ANION GAP 11 4 - 30 mmol/L 12/28/2016 5:47 AM CDT [facility] Blood Collection / Unknown 12/28/2016 2:39 AM CDT 12/28/2016 5:01 AM CDT us David Ortega MD CHEMISTRY ORDERABLES Final Res ult [facility] CLIA# [id number] [address] [place] [address] documented in this encounter Visit Diagnoses Not on filedocumented in this encounter Care Teams Occupational Ther Relationship Specialty Start Date End Date Shravan Jones DO [address] [address] PCP - General Family Practice 12/04/16 documented as of this encounter
--- OUTSIDE RECORDS SUMMARY | 2025-02-13 22:02 | XMS_ITS | Encounter Summary ---
Author Organization [facility] Address [address] [place] [address] Care Team Providers Care Dance Hall Host/Hostess Name Role Phone Shravan Jones DO Primary Care Provider [phone] Encounter Details Date Type Department Care Team (Late st Contact Info) Description 01/07/2017 Lab Requisition [facility] Laboratory Services [address] [place] [address] Izabela Diamond MD NO ADDRESS ON FILE Social History Tobacco Use Types Packs/Day Years Used Date Smoking Tobacco: Every Day Cigarettes Comments:pt lethargic Comments Unknown Sex and Gender Information Value Date Recorded Sex Assigned at Not on file 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 Gender Identity Not on file Sexual Orientation [...] - 40 mg/dL 01/07/2017 5:27 AM CDT [facility] Blood 01/07/2017 2:23 AM CDT 01/07/2017 5:01 AM CDT Izabela Diamond MD CHEMISTRY ORDERABLES Final Res ult Performing Organization Address City/[facility]/ZIP Co de Phone Number [facility] CLIA# [id number] [address] [place] [address] * (ABNORMAL) C-REACTIVE PROTEIN (01/07/2017 2:23 AM CDT) CRP 16.6(H) 0.0 - 2.9 mg/L 01/07/2017 5:27 AM CDT [facility] Blood 01/07/2017 2:23 AM CDT 01/07/2017 5:01 AM CDT Izabela Diamond MD CHEMISTRY ORDERABLES Final Res ult Performing Organization Address [facility] Co de Phone Number [facility] CLIA# [id number] [address] [place] [address] * (ABNORMAL) BASIC METABOLIC PANEL (01/07/2017 2:23 AM CDT) SODIUM 139 136 - 145 mmol/L 01/07/2017 5:27 AM CDT [facility] [employer] [facility] POTASSIUM 4.1 3.5 - 5.1 mmol/L 01/07/2017 5:27 AM CDT [facility] [employer] [facility] CHLORIDE 104 98 - 107 mmol/L 01/07/2017 5:27 AM CDT [facility] [employer] [facility] CO2 26 21 - 32 mmol/L 01/07/2017 5:27 AM CDT [facility] [employer] [facility] CALCIUM 9.1 8.4 - 10.1 mg/dL 01/07/2017 5:27 AM CDT [facility] [employer] [facility] BUN 14 7 - 17 mg/dL 01/07/2017 5:27 AM CDT [facility] CREATININE 0.82 0.55 - 1.02 mg/dL 01/07/2017 5:27 AM T [facility] GLUCOSE 274(H) 74 - 106 mg/dL 01/07/2017 5:27 AM T [facility] GFR >60 >=60 mL/min/1.7 3 sq meter 01/07/2017 5:27 AM T [facility] Comment: eGFR has not been validated for [...] 3 sq meter 01/07/2017 5:27 AM T [facility] ANION GAP 9 4 - 30 mmol/L 01/07/2017 5:27 AM [facility] Blood 01/07/2017 2:23 AM CDT 01/07/2017 5:01 AM CDT us Izabela Diamond MD CHEMISTRY ORDERABLES Final Res ult [facility] CLIA# [id number] [address] [place] [place] [address] * (ABNORMAL) CBC WITH DIFFERENTIAL (01/07/2017 2:23 AM CDT) WBC 9.3 4.5 - 11.0 K/uL 01/07/2017 5:27 AM CDT [facility] RBC 4.19(L) 4.20 - 5.40 M/uL 01/07/2017 5:27 AM CDT [facility] HEMOGLOBIN 10.3(L) 12.0 - 16.0 g/dL 01/07/2017 5:27 AM [facility] HEMATOCRIT 33.2(L) 36.0 - 46.0 % 01/07/2017 5:27 AM [facility] MCV 79.2(L) 84.0 - 103.0 fL 01/07/2017 5:27 AM [facility] MCH 24.6(L) 27.0 - 34.0 pg 01/07/2017 5:27 AM [facility] MCHC 31.0 30.0 - 35.0 g/dL 01/07/2017 5:27 AM [facility] RDW 17.2(H) 11.0 - 14.5 % 01/07/2017 5:27 AM [facility] RDW-STDEV 49.4 37.0 - 54.0 fL 01/07/2017 5:27 AM [facility] PLATELETS 545(H) 140 - 440 K/uL 01/07/2017 5:27 AM [facility] MPV 10.2 8.9 - 12.8 fL 01/07/2017 5:27 AM [facility] NEUTROPHILS 53 42 - 75 % 01/07/2017 5:27 AM [facility] LYMPHOCYTES 26 24 - 44 % 01/07/2017 5:27 AM [facility] MONOCYTES 9 2 - 10 % 01/07/2017 5:27 AM [facility] EOSINOPHILS 11(H) 0 - 7 % 01/07/2017 5:27 AM [facility] BASOPHILS 1 0 - 1 % 01/07/2017 5:27 AM [facility] IMMATURE GRANULOCYTES 0 0 - 2 % 01/07/2017 5:27 AM [facility] NEUTROPHIL ABSOLUTE 4.88 2.00 - 8.00 K/uL 01/07/2017 5:27 AM [facility] LYMPHOCYTE ABSOLUTE 2.45 1.20 - 4.00 K/uL 01/07/2017 5:27 AM [facility] MONOCYTE ABSOLUTE 0.79(H) 0.10 - 0.60 K/uL 01/07/2017 5:27 AM CDT [facility]ORATORY [facility] EOSINOPHIL ABSOLUTE 1.01(H) 0.00 - 0.70 K/uL 01/07/2017 5:27 AM CDT [facility] BASOPHILS ABSOLUTE 0.11 0.00 - 0.20 K/uL 01/07/2017 5:27 AM CDT [facility] IMMATURE GRANULOCYTES ABSOLUTE 0.04 0.00 - 0.10 K/uL 01/07/2017 5:27 AM CDT [facility] Blood 01/07/2017 2:23 AM CDT 01/07/2017 5:01 AM CDT us Izabela Diamond MD HEMATOLOGY ORDERABLES Final Re sult [facility] CLIA# [id number] [address] [place] [address] documented in this encounter Visit Diagnoses Not on filedocumented in this encounter Care Teams Dance Hall Host/Hostess Relationship Specialty Start Date End Date Shravan Jones DO [address] [address] PCP - General Family Practice 12/04/16 documented as of this encounter
--- OUTSIDE RECORDS SUMMARY | 2025-02-13 22:02 | XMS_ITS | Encounter Summary ---
Author Organization [facility] Address [address] [place] [address] Care Team Providers Care Upholsterer Limousine And Hearse Name Role Phone Shravan Jones DO Primary Care Provider Encounter Details Date Type Department Care Team (Late st Contact Info) Description 01/09/2017 Lab Requisition [facility] Laboratory Services [facility] [address] [place] [address] Izabela Diamond MD NO ADDRESS ON FILE Social History Tobacco Use Types Packs/Day Years Used Date Smoking Tobacco: Every Day Cigarettes Comments:pt lethargic Comments Unknown Sex and Gender Information Value Date Recorded Sex Assigned at Not on file Legal Sex Female 4:38 AM RECORDS MANAGEMENT ASSISTANT Gender Identity Not on file Sexual Orientation [...] - 2.6 mg/dL 01/09/2017 5:53 AM T [facility] Blood 01/09/2017 3:15 AM CDT 01/09/2017 5:12 AM CDT [facility] - 01/09/2017 5:53 AM CDT Due to Language Arts Teacher update, MG+ reference range has changed from 1.8 - 2.4 mg/dL to the new reference range of 1.6 - 2.6 mg/dL. This will have limited patient impact. us Izabela Diamond MD CHEMISTRY ORDERABLES Final Res ult [facility] CLIA# [id number] [address] [place] [address] * (ABNORMAL) COMPREHENSIVE METABOLIC PANEL (01/09/2017 3:15 AM CDT) SODIUM 139 136 - 145 mmol/L 01/09/2017 5:53 AM CDT [facility] POTASSIUM 4.1 3.5 - 5.1 mmol/L 01/09/2017 5:53 AM T [facility] CHLORIDE 101 98 - 107 mmol/L 01/09/2017 5:53 AM T [facility] CO2 28 21 - 32 mmol/L 01/09/2017 5:53 AM T [facility] CALCIUM 8.8 8.4 - 10.1 mg/dL 01/09/2017 5:53 AM T [facility] BUN 18(H) 7 - 17 mg/dL 01/09/2017 5:53 AM T [facility] CREATININE 0.73 0.55 - 1.02 mg/dL 01/09/2017 5:53 AM T [facility] GLUCOSE 182(H) 74 - 106 mg/dL 01/09/2017 5:53 AM T [facility] TOTAL PROTEIN 8.4(H) 6.4 - 8.2 g/dL 01/09/2017 5:53 AM T [facility] ALBUMIN 2.5(L) 3.4 - 5.0 g/dL 01/09/2017 5:53 AM CDT [facility] BILIRUBIN TOTAL 0.2 0.2 - 1.0 mg/dL 01/09/2017 5:53 AM CDT [facility] ALKALINE PHOSPHATASE 99 25 - 100 U/L 01/09/2017 5:53 AM CDT [facility] AST 30 15 - 37 U/L 01/09/2017 5:53 AM CDT [facility] ALT 27 13 - 61 U/L 01/09/2017 5:53 AM CDT [facility] GFR >60 >=60 mL/min/1.7 3 sq meter 01/09/2017 5:53 AM T [facility] Comment: eGFR has not been validated [...] 3 sq meter 01/09/2017 5:53 AM CDT [facility] ANION GAP 10 4 - 30 mmol/L 01/09/2017 5:53 AM T [facility] Blood 01/09/2017 3:15 AM CDT 01/09/2017 5:12 AM CDT us Izabela Diamond MD CHEMISTRY ORDERABLES Final Res ult [facility] CLIA# [id number] [address] [place] [address] * (ABNORMAL) CBC WITH DIFFERENTIAL (01/09/2017 3:15 AM CDT) WBC 8.7 4.5 - 11.0 K/uL 01/09/2017 5:20 AM [facility] RBC 4.63 4.20 - 5.40 M/uL 01/09/2017 5:20 AM [facility] HEMOGLOBIN 11.3(L) 12.0 - 16.0 g/dL 01/09/2017 5:20 AM [facility] HEMATOCRIT 36.8 36.0 - 46.0 % 01/09/2017 5:20 AM [facility] MCV 79.5(L) 84.0 - 103.0 fL 01/09/2017 5:20 AM [facility] MCH 24.4(L) 27.0 - 34.0 pg 01/09/2017 5:20 AM [facility] MCHC 30.7 30.0 - 35.0 g/dL 01/09/2017 5:20 AM [facility] RDW 17.3(H) 11.0 - 14.5 % 01/09/2017 5:20 AM [facility] RDW-STDEV 50.4 37.0 - 54.0 fL 01/09/2017 5:20 AM [facility] PLATELETS 463(H) 140 - 440 K/uL 01/09/2017 5:20 AM [facility] MPV 9.9 8.9 - 12.8 fL 01/09/2017 5:20 AM [facility] NEUTROPHILS 46 42 - 75 % 01/09/2017 5:20 AM [facility] LYMPHOCYTES 33 24 - 44 % 01/09/2017 5:20 AM [facility] MONOCYTES 8 2 - 10 % 01/09/2017 5:20 AM [facility] EOSINOPHILS 11(H) 0 - 7 % 01/09/2017 5:20 AM [facility] BASOPHILS 1 0 - 1 % 01/09/2017 5:20 AM [facility] IMMATURE GRANULOCYTES 0 0 - 2 % 01/09/2017 5:20 AM [facility] NEUTROPHIL ABSOLUTE 4.05 2.00 - 8.00 K/uL 01/09/2017 5:20 AM CDT [facility] LYMPHOCYTE ABSOLUTE 2.86 1.20 - 4.00 K/uL 01/09/2017 5:20 AM CDT [facility] MONOCYTE ABSOLUTE 0.73(H) 0.10 - 0.60 K/uL 01/09/2017 5:20 AM CDT [facility] EOSINOPHIL ABSOLUTE 0.95(H) 0.00 - 0.70 K/uL 01/09/2017 5:20 AM CDT [facility] BASOPHILS ABSOLUTE 0.11 0.00 - 0.20 K/uL 01/09/2017 5:20 AM CDT [facility] IMMATURE GRANULOCYTES ABSOLUTE 0.03 0.00 - 0.10 K/uL 01/09/2017 5:20 AM CDT [facility] Blood 01/09/2017 3:15 AM CDT 01/09/2017 5:12 AM CDT us Izabela Diamond MD HEMATOLOGY ORDERABLES Final Re sult [facility] CLIA# [id number] [address] [place] [address] * (ABNORMAL) HEMOGLOBIN A1C (01/09/2017 2:52 AM CDT) HEMOGLOBIN A1C 8.9(H) 4.0 - 6.0 % 01/09/2017 1:31 PM CDT [facility] EST. AVG GLUCOSE, A1C 209 mg/dL 01/09/2017 1:31 PM CDT [facility] Blood 01/09/2017 2:52 AM CDT 01/09/2017 6:53 AM CDT Narrative [facility] - 01/09/2017 1:31 PM CDT Test performed on [place] [employer] instrumentation using HPLC methodology us Izabela Diamond MD CHEMISTRY ORDERABLES Final Res ult [facility] CLIA# [id number] [address] [place] [address] documented in this encounter Visit Diagnoses Not on filedocumented in this encounter Care Teams Upholsterer Limousine And Hearse Relationship Specialty Start Date End Date Shravan Jones DO [address] [address] PCP - General Family Practice 12/04/16 documented as of this encounter
--- OUTSIDE RECORDS SUMMARY | 2025-02-13 22:02 | XMS_ITS | Encounter Summary ---
Author Organization [facility] Address [address] [place] [address] Care Team Providers Care Member Of Congress Name Role Phone Shravan Jones DO Primary Care Provider [phone] Encounter Details Date Type Department Care Team (Late st Contact Info) Description 01/07/2017 Lab Requisition [facility] Laboratory Services [address] [place] [address] David Ortega MD [address] [place] [address] Social History Tobacco Use Types Packs/Day Years Used Date Smoking Tobacco: Every Day Cigarettes Comments:pt lethargic Comments Unknown Sex and Gender Information Value Date Recorded Sex Assigned at Not on file Legal Sex Female 4:38 AM 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
--- OUTSIDE RECORDS SUMMARY | 2025-02-13 22:02 | XMS_ITS | Encounter Summary ---
Author Organization [facility] Address [address] [place] [address] Phone Care Team Providers Care Microbiology Lab Technician Name Role Phone Alexis Garcia MD Primary Care Provider [phone] Encounter Details Date Type Department Care Team (Late st Contact Info) Description 02/11/2025 Orders Only [facility] [address] [place] [address] Chey Navas MD [address] [place] [address] Social History Tobacco Use Types [...] Date/Time Associated Diagnosis Comments HEMATOLOGY Routine 02/11/2025 documented in this encounter Results * (ABNORMAL) HEMATOLOGY (02/11/2025) Hemoglobin 8.8(L) 12.0 - 16.0 g/dL [facility] Hemoglobin x 3 26.4(L) 36.0 - 48.0 % [facility] 02/11/2025 02/12/2025 10: 20 AM CDT Narrative [facility] - 02/12/2025 Unless otherwise specified, test(s) performed at: [facility], [address] [place] [address] TECHNICAL MARKETING ENGINEER: Jose Luis France M.D. For any questions, please call customer service at FREQUENCY:OTHER Resulting Agency Comment Specimen source: Blood us Chey Navas MD LAB BLOOD ORDERABLES Final Re sult [facility] See order comments or contact performing lab Unknown, [place] documented in this encounter Visit Diagnoses Not on filedocumented in this encounter Care Teams Microbiology Lab Technician Relationship Specialty Start Date End Date Alexis Garcia MD [address] [place] [address] PCP - General Family Medicine 04/16/22 documented as of this encounter
--- OUTSIDE RECORDS SUMMARY | 2025-02-13 22:02 | XMS_ITS | Encounter Summary ---
Author Organization [facility] Address [address] [place] [address] Care Team Providers Care Finance Controller Name Role Phone Shravan Jones DO Primary Care Provider Encounter Details Date Type Department Care Team (Late st Contact Info) Description 12/31/2016 Lab Requisition [facility] Laboratory Services [address] [place] [address] David Ortega MD [address] [place] [address] Social History Tobacco Use Types Packs/Day Years Used Date Smoking Tobacco: Every Day Cigarettes Comments:pt lethargic Comments Unknown Sex and Gender Information Value Date Recorded Sex Assigned at Not on file Legal Sex Female 4:38 AM 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 This will have limited patient impact. us David Ortega MD CHEMISTRY ORDERABLES Final Res ult [facility] CLIA# [id number] [address] [place] [address] * (ABNORMAL) COMPREHENSIVE METABOLIC PANEL (12/31/2016 2:26 AM CDT) SODIUM 138 136 - 145 mmol/L 12/31/2016 5:52 AM CDT [facility] POTASSIUM 4.7 3.5 - 5.1 mmol/L 12/31/2016 5:52 AM [facility] CHLORIDE 102 98 - 107 mmol/L 12/31/2016 5:52 AM T [facility] CO2 27 21 - 32 mmol/L 12/31/2016 5:52 AM T [facility] CALCIUM 9.1 8.4 - 10.1 mg/dL 12/31/2016 5:52 AM T [facility] BUN 17 7 - 17 mg/dL 12/31/2016 5:52 AM T [facility] CREATININE 0.87 0.55 - 1.02 mg/dL 12/31/2016 5:52 AM T [facility] GLUCOSE 214(H) 74 - 106 mg/dL 12/31/2016 5:52 AM T [facility] TOTAL PROTEIN 8.2 6.4 - 8.2 g/dL 12/31/2016 5:52 AM T [facility] ALBUMIN 1.9(L) 3.4 - 5.0 g/dL 12/31/2016 5:52 AM CDT [facility] BILIRUBIN TOTAL 0.2 0.2 - 1.0 mg/dL 12/31/2016 5:52 AM CDT [facility] ALKALINE PHOSPHATASE 95 25 - 100 U/L 12/31/2016 5:52 AM CDT [facility] AST 9(L) 15 - 37 U/L 12/31/2016 5:52 AM CDT [facility] ALT 14 13 - 61 U/L 12/31/2016 5:52 AM CDT [facility] GFR >60 >=60 mL/min/1.7 3 sq meter 12/31/2016 5:52 AM T [facility] Comment: eGFR has not been validated for [...] 3 sq meter 12/31/2016 5:52 AM CDT [facility] ANION GAP 9 4 - 30 mmol/L 12/31/2016 5:52 AM T [facility] Blood 12/31/2016 2:26 AM CDT 12/31/2016 5:17 AM CDT us David Ortega MD CHEMISTRY ORDERABLES Final Res ult [facility] CLIA# [id number] [address] [place] [address] * (ABNORMAL) CBC WITH DIFFERENTIAL (12/31/2016 2:26 AM CDT) WBC 13.7(H) 4.5 - 11.0 K/uL 12/31/2016 6:32 AM [facility] RBC 3.66(L) 4.20 - 5.40 M/uL 12/31/2016 6:32 AM [facility] HEMOGLOBIN 9.3(L) 12.0 - 16.0 g/dL 12/31/2016 6:32 AM [facility] I and love and you [facility] HEMATOCRIT 29.6(L) 36.0 - 46.0 % 12/31/2016 6:32 AM [facility] I and love and you [facility] MCV 80.9(L) 84.0 - 103.0 fL 12/31/2016 6:32 AM [facility] I and love and you [facility] MCH 25.4(L) 27.0 - 34.0 pg 12/31/2016 6:32 AM [facility] MCHC 31.4 30.0 - 35.0 g/dL 12/31/2016 6:32 AM [facility] I and love and you [facility] RDW 17.4(H) 11.0 - 14.5 % 12/31/2016 6:32 AM [facility] I and love and you [facility] RDW-STDEV 52.1 37.0 - 54.0 fL 12/31/2016 6:32 AM [facility] I and love and you [facility] PLATELETS 767(H) 140 - 440 K/uL 12/31/2016 6:32 AM [facility] I and love and you [facility] MPV 9.0 8.9 - 12.8 fL 12/31/2016 6:32 AM [facility] I and love and you [facility] NEUTROPHILS 68 42 - 75 % 12/31/2016 6:32 AM [facility] I and love and you [facility] LYMPHOCYTES 17(L) 24 - 44 % 12/31/2016 6:32 AM [facility] I and love and you [facility] MONOCYTES 8 2 - 10 % 12/31/2016 6:32 AM [facility] I and love and you [facility] EOSINOPHILS 6 0 - 7 % 12/31/2016 6:32 AM [facility] I and love and you [facility] BASOPHILS 0 0 - 1 % 12/31/2016 6:32 AM [facility] I and love and you [facility] IMMATURE GRANULOCYTES 1 0 - 2 % 12/31/2016 6:32 AM CDT [facility] NEUTROPHIL ABSOLUTE 9.26(H) 2.00 - 8.00 K/uL 12/31/2016 6:32 AM CDT [facility] LYMPHOCYTE ABSOLUTE 2.28 1.20 - 4.00 K/uL 12/31/2016 6:32 AM CDT [facility] MONOCYTE ABSOLUTE 1.07(H) 0.10 - 0.60 K/uL 12/31/2016 6:32 AM CDT [facility] EOSINOPHIL ABSOLUTE 0.82(H) 0.00 - 0.70 K/uL 12/31/2016 6:32 AM CDT [facility] BASOPHILS ABSOLUTE 0.06 0.00 - 0.20 K/uL 12/31/2016 6:32 AM CDT [facility] IMMATURE GRANULOCYTES ABSOLUTE 0.17(H) 0.00 - 0.10 K/uL 12/31/2016 6:32 AM CDT [facility] Blood 12/31/2016 2:26 AM CDT 12/31/2016 5:17 AM CDT Narrative [facility] - 12/31/2016 6:32 AM CDT Smear reviewed us David Ortega MD HEMATOLOGY ORDERABLES Final Re sult [facility] CLIA# [id number] [address] [place] [address] documented in this encounter Visit Diagnoses Not on filedocumented in this encounter Care Teams Finance Controller Relationship Specialty Start Date End Date Shravan Jones DO [address] [address] PCP - General Family Practice 12/04/16 documented as of this encounter
--- OUTSIDE RECORDS SUMMARY | 2025-02-13 22:02 | XMS_ITS | Encounter Summary ---
Author Organization [facility] Address [address] [place] [address] Care Team Providers Care Clock And Watch Hands Dipper Name Role Phone Shravan Jones DO Primary Care Provider Encounter Details Date Type Department Care Team (Late st Contact Info) Description 01/02/[address] [facility] Laboratory Services [address] [place] [address] Izabela Diamond MD NO ADDRESS ON FILE Social History Tobacco Use Types Packs/Day Years Used Date Smoking Tobacco: Every Day Cigarettes Comments:pt lethargic Comments Unknown Sex and Gender Information Value Date Recorded Sex Assigned at Not on file Legal Sex Female 4:38 AM PAY AGENT Gender Identity Not on file Sexual Orientation [...] - 145 mmol/L 01/02/2017 6:07 AM CDT [facility] Exegy [facility] POTASSIUM 4.3 3.5 - 5.1 mmol/L 01/02/2017 6:07 AM CDT [facility] CHLORIDE 101 98 - 107 mmol/L 01/02/2017 6:07 AM T [facility] CO2 27 21 - 32 mmol/L 01/02/2017 6:07 AM T [facility] CALCIUM 9.7 8.4 - 10.1 mg/dL 01/02/2017 6:07 AM T [facility] BUN 16 7 - 17 mg/dL 01/02/2017 6:07 AM [facility] CREATININE 0.87 0.55 - 1.02 mg/dL 01/02/2017 6:07 AM T [facility] GLUCOSE 122(H) 74 - 106 mg/dL 01/02/2017 6:07 AM [facility] GFR >60 >=60 mL/min/1.7 3 sq meter 01/02/2017 6:07 AM T [facility] Comment: eGFR has not been validated for [...] 3 sq meter 01/02/2017 6:07 AM CDT [facility] ANION GAP 10 4 - 30 mmol/L 01/02/2017 6:07 AM T [facility] Blood 01/02/2017 3:00 AM CDT 01/02/2017 5:35 AM CDT us Izabela Diamond MD CHEMISTRY ORDERABLES Final Res ult [facility] CLIA# [id number] [address] [place] [address] * (ABNORMAL) CBC WITH DIFFERENTIAL (01/02/2017 3:00 AM CDT) [facility] WBC 10.4 4.5 - 11.0 K/uL 01/02/2017 5:44 AM [facility] RBC 4.30 4.20 - 5.40 M/uL 01/02/2017 5:44 AM [facility] HEMOGLOBIN 10.4(L) 12.0 - 16.0 g/dL 01/02/2017 5:44 AM [facility] HEMATOCRIT 34.5(L) 36.0 - 46.0 % 01/02/2017 5:44 AM [facility] MCV 80.2(L) 84.0 - 103.0 fL 01/02/2017 5:44 AM [facility] MCH 24.2(L) 27.0 - 34.0 pg 01/02/2017 5:44 AM [facility] MCHC 30.1 30.0 - 35.0 g/dL 01/02/2017 5:44 AM [facility] RDW 17.4(H) 11.0 - 14.5 % 01/02/2017 5:44 AM [facility] RDW-STDEV 51.1 37.0 - 54.0 fL 01/02/2017 5:44 AM [facility] PLATELETS 764(H) 140 - 440 K/uL 01/02/2017 5:44 AM [facility] MPV 9.2 8.9 - 12.8 fL 01/02/2017 5:44 AM [facility] NEUTROPHILS 56 42 - 75 % 01/02/2017 5:44 AM [facility] LYMPHOCYTES 27 24 - 44 % 01/02/2017 5:44 AM [facility] MONOCYTES 8 2 - 10 % 01/02/2017 5:44 AM [facility] EOSINOPHILS 7 0 - 7 % 01/02/2017 5:44 AM [facility] BASOPHILS 1 0 - 1 % 01/02/2017 5:44 AM [facility] IMMATURE GRANULOCYTES 1 0 - 2 % 01/02/2017 5:44 AM CDT [facility] NEUTROPHIL ABSOLUTE 5.79 2.00 - 8.00 K/uL 01/02/2017 5:44 AM CDT [facility] LYMPHOCYTE ABSOLUTE 2.78 1.20 - 4.00 K/uL 01/02/2017 5:44 AM CDT [facility] MONOCYTE ABSOLUTE 0.85(H) 0.10 - 0.60 K/uL 01/02/2017 5:44 AM CDT [facility] EOSINOPHIL ABSOLUTE 0.76(H) 0.00 - 0.70 K/uL 01/02/2017 5:44 AM CDT [facility] BASOPHILS ABSOLUTE 0.10 0.00 - 0.20 K/uL 01/02/2017 5:44 AM CDT [facility] IMMATURE GRANULOCYTES ABSOLUTE 0.09 0.00 - 0.10 K/uL 01/02/2017 5:44 AM CDT [facility] Blood 01/02/2017 3:00 AM CDT 01/02/2017 5:35 AM CDT us Izabela Diamond MD HEMATOLOGY ORDERABLES Final Re sult [facility] CLIA# [id number] [facility] [place] [address] documented in this encounter Visit Diagnoses Not on filedocumented in this encounter Care Teams Clock And Watch Hands Dipper Relationship Specialty Start Date End Date Shravan Jones DO [address] [address] PCP - General Family Practice 12/04/16 documented as of this encounter
--- OUTSIDE RECORDS SUMMARY | 2025-02-13 22:02 | XMS_ITS | Encounter Summary ---
Author Organization [facility] Address [address] [place] [address] Care Team Providers Care Academic Services Coordinator Name Role Phone Shravan Jones DO Primary Care Provider [phone] Encounter Details Date Type Department Care Team (Latest Contact Info) Description 05/14/2003 Outpatient [facility] Oral and Maxillo Surgery[address] [place] [address] Jimmy Tineo, CLIVES NO ADDRESS ON FILE UNSPEC DENTAL CARIES (Primary Dx); TOOTH POSITION ANOMALY Social History Tobacco Use Types Packs/Day Years Used Date Smoking Tobacco: Never Assessed Comments Unknown Sex and Gender Information Value Date Recorded Sex Assigned at Not on file Legal Sex Female 4:38 AM 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
--- OUTSIDE RECORDS SUMMARY | 2025-02-13 22:02 | XMS_ITS | Encounter Summary ---
Author Organization [employer] Address [address] [place] [address] Care Team Providers Care Drug Abuse Counselor Name Role Phone Shravan Jones DO Primary Care Provider [phone] Encounter Details Date Type Department Care Team (Late st Contact Info) Description 02/09/2025 External Device Data [facility] ABSTRACTION Provider, Abstract NO ADDRESS ON FILE Social History Tobacco [...] and Family Not on file 09/22/2023 Attends Gnosticism Services Not on file 09/21 Active Member [...] on file Legal Sex Female 3:34 PM SALES REPRESENTATIVE SALES MANAGER Gender Identity Not on file Sexual Orientation Not on file documented as of this encounter Plan of Treatment Upcoming Encounters Date Type Department Care Team (Late st Contact Info) Description 05/19/2025 9:30 AM SALES REPRESENTATIVE SALES MANAGER Office Visit [facility] Gastroenterology- [place] [address] [place] [address] Abel Menon DO [address] [facility] [address] [place] [address] documented as of this encounter Visit Diagnoses Not on filedocumented in this encounter Care Teams Drug Abuse Counselor Relationship Specialty Start Date End Date Shravan Jones DO [address] [address] PCP - General Family Practice 12/04/16 documented as of this encounter
--- OUTSIDE RECORDS SUMMARY | 2025-02-13 22:02 | XMS_ITS | Encounter Summary ---
Author Organization [facility] Address [address] [place] [address] Phone Care Team Providers Care Elementary Ell Teacher Name Role Phone Alexis Garcia MD Primary Care Provider [phone] Encounter Details Date Type Department Care Team (Late st Contact Info) Description 02/09/2025 Treatment [facility] [address] [place] [address] Chey Navas MD [address] [place] [address] End stage renal disease; Dependence on renal dialysis Social History Tobacco Use Types Packs/Day Years Used Date Smoking Tobacco: Never Assessed Comments Unknown Sex and Gender Information Value Date Recorded Sex Assigned at Not on file Legal Sex Female 10:18 AM EDT Gender Identity Not on file Sexual Orientation Not on file documented as of this encounter Miscellaneous Notes * Dialysis Note - Chey Navas MD - 02/09/2025 12:00 AM CDT Patient: Donita Aguilar, 1985, 39y, F Dialysis Location: [facility] Attending Obstetrics Gynecology Physician: Chey Navas Service Date: 02/09/2025 Service Provider: Chey Navas MD I met face to face with the patient today. OVERVIEW The patient presented with ESRD on dialysis Primary cause of renal failure: Type 1 diabetes mellitus with diabetic chronic kidney disease Comments: VSS, seen on HD machine Hx ESRD secondary to DM I. She did start dialysis about during a hospitalization in [place], [place]. Hx of meth us. She did move to to live with her mother and have more support. She continues to do well and work toward testing for transplant. She is having left foot pain. Had a MRI per PCP. Medications and labs reviewed. LAST HOSPITALIZATION Discharge Diagnosis: R07.89 Other chest pain Admission Date 12/26/24 Discharge Date 12/28/24 Comments: Admitted for monitoring for chest pain repeat echo reviewed. Determined negative for needed intervention, without acute processes, discharged. Medication list reviewed by this provider and reviewed with RN for updating DIALYSIS PRESCRIPTION IHD 3x Week Start date: 02/04/25 Dialyzer: 160NRe Optiflux BFR: 350 DFR: Manual 800 Potassium: 2.0 Sodium: 138 EDW: 62.5 Duration: 3:30 Calcium: 2.5 Bicarb: 36 Rx updated on: 02/04/2025 TREATMENT ASSESSMENT Comments: Stable at goal range. BP Stand Pre 02/06/2025: 126/80 02/04/2025: 103/36 02/02/2025: 103/46 BP Sit Pre 02/06/2025: 140/98 02/04/2025: 100/30 02/02/2025: 94/77 BP Stand Post 02/06/2025: 131/109 02/04/2025: 136/62 02/02/2025: 112/59 BP Sit Post 02/06/2025: 106/70 02/04/2025: 134/75 02/02/2025: 137/80 Tx Duration 02/06/2025: 3:31 02/04/2025: 3:37 02/02/2025: 3:56 Missed Treatments 0 - last 30 days 0 - last 60 days FLUID ASSESSMENT Comments: Stable. Minimal UF needed. EDW (kg) 02/06/2025: 62.5 02/04/2025: 62.0 02/02/2025: 62.0 Weight Pre (kg) 02/06/2025: 63.5 02/04/2025: 62.9 02/02/2025: 63.1 Weight Post (kg) 02/06/2025: 62.0 02/04/2025: 63.0 02/02/2025: 61.7 PWV (kg) 02/06/2025: -0.5 02/04/2025: 1.0 02/02/2025: -0.3 UF Rate (mL/kg/hr) 02/06/2025: 6.9 02/04/2025: -0.4 02/02/2025: 5.8 ADEQUACY ASSESSMENT Comments: Stable trend spKt/V, URR 01/28/2025: 1.79, 78.0 12/24/2024: 1.71, 76.0 11/26/2024: 1.8, 79.0 ACCESS ASSESSMENT Access Type: AVGraft Access SubType: Synthetic - Standard (PTFE) Access Status: Active (In Use) - 10/12/2024 Access Location: Left Upper Arm Created: 08/10/2024 Flow 01/19/2025: 943 12/01/2024: 1140 11/17/2024: 1177 Vascular access reviewed. Current access is permanent and functioning well. ANEMIA ASSESSMENT Comments: On IV iron and MAX Went to hematology. She reports having Vit B12 def. Getting monthly Vit B 12 injections. HGB, TSAT 02/04/2025: 8.9, - 01/28/2025: 11.2, 51.0 01/21/2025: 11.2, - Ferritin 11/26/2024: 784.0 11/19/2024: 797.0 08/27/2024: 692.0 Mircera, IVP (mcg) 01/05/2025: 30 11/24/2024: 75 11/10/2024: 30 Iron Sucrose (Venofer) (mg) 02/02/2025: 50 01/26/2025: 50 01/19/2025: 50 BMM ASSESSMENT Comments: Increased calcitriol. Phos still a above goal. Ed to take binders and low phos diet PTH, Intact 01/28/2025: 797.0 11/26/2024: 702.0 08/27/2024: 425.0 Calcium, Phosphorus 01/28/2025: 8.5, 7.6 12/24/2024: 7.9, 8.3 11/26/2024: 8.4, 5.9 Vitamin D (Calcitriol) Oral (mcg) 02/06/2025: 0.75 02/04/2025: 0.75 02/02/2025: 0.5 NUTRITION ASSESSMENT Comments: nPCR is good. Potassium stable Potassium, Albumin 01/28/2025: 5.3, 3.5 12/31/2024: 5.3, - 12/24/2024: 6.7, 3.6 eNPCR 01/28/2025: 1.05 12/24/2024: 1.15 11/26/2024: 0.79 PHYSICAL EXAM Exam Performed. Vital Signs Reviewed. CV - Blood pressure noted. EXT - No edema. EXT - No ulcers. AVF/AVG Positive thrill/bruit. DIAGNOSIS Chief Complaint: N18.6 End stage renal disease Patient is stable. Patient data updated 02/09/2025 at 11:04 AM Signed By: Chey Navas MD on 02/09/2025 11:07:54 AM documented in this encounter Plan of Treatment Not on file documented as of this encounter Visit Diagnoses Diagnosis End stage renal disease Dependence on renal dialysis documented in this encounter Care Teams Elementary Ell Teacher Relationship Specialty Start Date End Date Alexis Garcia MD [address] [place] [address] PCP - General Family Medicine 04/16/22 documented as of this encounter
--- OUTSIDE RECORDS SUMMARY | 2025-02-13 22:02 | XMS_ITS | Encounter Summary ---
Author Organization [facility] Address [address] [place] [address] Care Team Providers Care Airborne Mission Systems Name Role Phone Shravan Jones DO Primary Care Provider [phone] Encounter Details Date Type Department Care Team (Late st Contact Info) Description 12/12/2016 Nurse Only [facility] 4D Surgery Heart Lung [address] [place] [address] Stephenie Smith RN [address] [place] [address] Social History Tobacco Use Types Packs/Day Years Used Date Smoking Tobacco: Every Day Cigarettes Comments:pt lethargic Comments Unknown Sex and Gender Information Value Date Recorded Sex Assigned at Not on file Legal Sex Female 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
--- OUTSIDE RECORDS SUMMARY | 2025-02-13 22:02 | XMS_ITS | Encounter Summary ---
Author Organization [facility] Address [address] [place] [address] Care Team Providers Care Sprinkler Truck Driver Name Role Phone Shravan Jones DO Primary Care Provider [phone] Reason for Visit * Reason Onset Date Comments Appointment Notification 11/05/2023 Encounter Details Date Type Department Care Team (Late st Contact Info) Description 11/05/2023 Telephone [facility] [address] [place] [address] Janell Beauchamp MD [address] [place] [address] Appointment Notification Social History Tobacco Use Types Packs/Day Years Used Date Smoking Tobacco: Every Day Comments:Quit smoking: pt le thargic Social Connections Answer Date Recorded In a typical week, how many times do you talk on the telephone with family, friends, or neighbors? Never 09/22/19 24 Frequency of Social Gatherings with Friends and Family Not on file 09/22/2023 Attends Confucianism Services Not on file 09/21 Active Member [...] on file Legal Sex Female 3:34 PM PRIMARY CARE COORDINATOR Gender Identity Not on file Sexual Orientation Not on file documented as of this encounter Miscellaneous Notes * Telephone Encounter - Patrica Barney - 11/05/2023 12:07 PM CDT Janell (Provider) MESSAGE Pt needs to cancel appt on 11/07 and would like to resched. For 11/25 as she has other appts in town that day. Please call pt to reschedule. [facility] Outpatient Coding Specialist: Patrica Barney documented in this encounter Plan of Treatment Upcoming Encounters Date Type Department Care Team (Late st Contact Info) Description 05/19/2025 9:30 AM PRIMARY CARE COORDINATOR [facility] [address] [address] Abel Menon DO [address] [phone] documented as of this encounter Visit Diagnoses Not on filedocumented in this encounter Additional Health Concerns Infection Onset Date Last Indicated Resolved Time R/O C. diff 07/06/2024 07/06/2024 07/06/2024 8:35 AM PRIMARY CARE COORDINATOR documented as of this encounter Care Teams Sprinkler Truck Driver Relationship Specialty Start Date End Date Shravan Jones DO [address] [place] [address] PCP - General Family Practice 12/04/16 documented as of this encounter
--- OUTSIDE RECORDS SUMMARY | 2025-02-13 22:02 | XMS_ITS | Encounter Summary ---
Author Organization [facility] Address [address] [place] [address] Phone Care Team Providers Care Progress Worker Name Role Phone Alexis Garcia MD Primary Care Provider [phone] Encounter Details Date Type Department Care Team (Late st Contact Info) Description 04/16/2022 Orders Only [facility] [address] [place] [address] Chronic kidney disease, Stage IV (severe) (HCC) Social History Tobacco Use Types Packs/Day Years Used Date Smoking Tobacco: Never Assessed Comments Unknown Sex and Gender Information Value Date Recorded Sex Assigned at Not on file Legal Sex Female 10:18 AM EDT Gender Identity Not on file Sexual Orientation Not on file documented as of this encounter Plan of Treatment Not on file documented as of this encounter Visit Diagnoses Diagnosis Chronic kidney disease, Stage IV (severe) (HCC) Chronic kidney disease, Stage IV (severe) documented in this encounter Care Teams Progress Worker Relationship Specialty Start Date End Date Alexis Garcia MD [address] [place] [address] PCP - General Family Medicine 04/16/22 documented as of this encounter
--- OUTSIDE RECORDS SUMMARY | 2025-02-13 22:02 | XMS_ITS | Clinical Summary ---
Author Organization [facility] Address [address] [place] [address] Phone Care Team Providers Care Blasting Machine Operator Name Role Phone Shravan Jones DO Primary Care Provider [phone] Allergies No known active allergies Medications oxyCODONE-aceta [...] on file Legal Sex Female 4:38 AM WEED CUTTER Gender Identity Not on file Sexual Orientation [...] (3 - Tdap) 03/14/2000 03/13/20 00, 09/25/1990 DIABETES ANNUAL FOOT EXAM 2004 DIABETES ANNUAL RETINAL EXAM 2004 DIABETES MICROALBUMIN ANNUAL SCREEN 2004 LDL CHOLESTEROL ANNUAL 2004 HPV/Cotest (21-29) 2007 HPV VACCINES (1 - 3-dose SCDM series) 2013 CERVICAL CANCER SCREENING 2016 HPV/Cotest (30-65) 2016 PAP SMEAR 2016 DIABETES HBA1C Q 6 MONTHS 07/12/2017 01/09/2017, INFLUENZA VACCINE (#1) 2025 HEPATITIS B VACCINES Completed 03/13/2000, 10/11/1999, 09/06/1999 Medical Devices Implanted Type Area Pediatric Physician Assistant Device Identifier Shelf Expiration Date Model / Serial / Lot Max tracy Flour [id number] - [id number] Implanted:Qty: 2 on 12/17/2016 by Deandre Alan MD at [facility] Biological Left: Lung CR [employer] 09/19/2019 [id number] / / [id number] Control Implant Funmi Procedures Procedure Name Priority Date/Time Associated Diagnosis Comments HEMOGLOBIN A1C Routine 01/09/2017 2:52 AM CDT from Last 3 Months or Most Recently Relevant to Health Maintenance Results * (ABNORMAL) HEMOGLOBIN A1C (01/09/2017 2:52 AM CDT) HEMOGLOBIN A1C 8.9(H) 4.0 - 6.0 % 01/09/2017 1:31 PM CDT [facility] EST. AVG GLUCOSE, A1C 209 mg/dL 01/09/2017 1:31 PM CDT [facility] Blood 01/09/2017 2:52 AM CDT 01/09/2017 6:53 AM CDT Narrative [facility] - 01/09/2017 1:31 PM CDT Test performed on NutrisystemII instrumentation using HPLC methodology us Izabela Diamond MD CHEMISTRY ORDERABLES Final Res ult [facility] CLIA# [id number] [address] [place] [address] from Last 3 Months or Most Recently Relevant to Health [place] [address] [facility] MEDICAID Advance Directives For more information, please contact: [phone] * Full Code (Latest Code Status on File) Date Activated Date Inactivated Comments 12/17/2016 1:05 PM 12/27/2016 11:32 PM Care Teams Blasting Machine Operator Relationship Specialty Start Date End Date Shravan Jones DO [address] [address] PCP - General Family Practice 12/04/16
--- OUTSIDE RECORDS SUMMARY | 2025-02-13 22:02 | XMS_ITS | Encounter Summary ---
Author Organization [facility] Address [address] [place] [address] Care Team Providers Care Hog Raiser Name Role Phone Shravan Jones DO Primary Care Provider Encounter Details Date Type Department Care Team (Late st Contact Info) Description 01/07/2017 Lab Requisition [facility] [address] [place] [address] [place] [address] David Ortega MD [address] [place] [address] Social History Tobacco Use Types Packs/Day Years Used Date Smoking Tobacco: Every Day Cigarettes Comments:pt lethargic Comments Unknown Sex and Gender Information Value Date Recorded Sex Assigned at Not on file Legal Sex Female 4:38 AM MILK SAMPLER Gender Identity Not on file Sexual Orientation [...] Detected Not Detected 01/07/2017 8:08 PM CDT [facility] XL Video [facility] Stool STOOL SPECIMEN / Unknown 01/07/2017 1:54 PM CDT 01/07/2017 6:53 PM CDT Narrative [facility] XL Video [facility] - 01/07/2017 8:08 PM CDT This assay [...] MICROBIOLOGY - GENERAL ORDERAB LES Final Result [facility] XL Video [facility] CLIA# [id number] [address] [place] [address] documented in this encounter Visit Diagnoses Not on filedocumented in this encounter Care Teams Hog Raiser Relationship Specialty Start Date End Date Shravan Jones DO [address] [address] PCP - General Family Practice 12/04/16 documented as of this encounter
--- NOTE | 2025-02-13 22:23 | ED_ITS ---
HPI - Abdominal Pain 2 General: Chief Complaint: Abdominal Pain Stated Complaint: ABD PAIN Time Seen by Provider: 02/13/25 21:53 History of Present Illness: 39-year-old female with a history of end -stage renal disease on dialysis. She presents with bilateral flank pain. She notes that she felt well earlier in the day. She missed dialysis today because of mechanical problems at the dialysis clinic. She complains of a mild headache, intense bilateral flank pain and belly pain with some nausea. No vomiting or diarrhea. She only makes urine in the morning, small amounts. She was short of breath earlier, but not currently Related Data Home Medications ?Medication ?Instructions ?Recorded ?Confirmed clonidine HCl 0.1 mg tablet See Rx Instructions .Route 11/27/23 01/14/25 .COMPLEX PRN Blood Pressure gabapentin 100 mg capsule 100 mg PO TID 12/27/2301/14 clopidogrel 75 mg tablet 75 mg PO DAILY 04/28/2412/23 escitalopram oxalate 10 mg tablet 10 mg PO DAILY 09/0701/14/25 Previous Rx's ?Medication ?Instructions ?Recorded blood-glucose sensor (Dexcom G6 #3 ea 06/12/22 Sensor device) blood-glucose transmitter (Dexcom #1 ea 06/12/22 G6 Transmitter device) blood-glucose,penology teacher,cont #1 ea 06/12/22 (Dexcom G6 Rendering Equipment Tender) sevelamer carbonate 800 mg tablet 800 mg PO TID #90 ta bs 09/16/23 aspirin 81 mg tablet,delayed 81 mg PO QAM 30 days #30 tabs 03/28/24 release atorvastatin 40 mg tablet 40 mg PO BEDTIME 30 days #30 tabs 03/28/24 AFO brace #1 ea 04/20/24 diabetic shoes with 3 inserts #1 ea 04/20/24 amlodipine 5 mg tablet 5 mg PO DAILY #30 tabs 09/30 bumetanide 1 mg tablet See Rx Instructions .Route 0 09/30/24 .COMPLEX #60 tabs cyclobenzaprine 10 mg tablet 10 mg PO TID #14 tabs insulin aspart U-100 100 unit/mL See Rx Instructions . Route 12/28/24 (3 mL) subcutaneous pen (Novolog .COMPLEX #15 mL FlexPen U-100 Insulin aspart) Allergies Allergy/AdvReac Type Severity Reaction Status Date / Time acetaminophen AdvReac Mild ADR-Gastrointestinal Verified 01/14/25 14:02 Upset [facility] ED 2 PFS: Medical History HTN (hypertension), benign Hyperkalemia Headache Accelerated hypertension Uncontrolled type 1 diabetes mellitus ESRD (end stage renal disease) Dialysis complication Hypoglycemia Hemodialysis catheter dysfunction Colitis End stage renal disease on dialysis COPD (chronic obstructive pulmonary disease) Diabetes mellitus Transaminitis Intractable nausea and vomiting Hyperlipidemia HTN (hypertension) CHF (congestive heart failure), NYHA class III Pulmonary hypertension CAD (coronary artery disease) Neurogenic bladder COVID-19 Tobacco dependence Drug abuse Anemia Community acquired pneumonia Esophagitis Long-term insulin use History of pancreatitis Celiac disease Recurrent UTI Non-alcoholic fatty liver disease Arnold-Chiari malformation Diabetic gastroparesis -continue Reglan Diabetic neuropathy associated with type 1 diabetes mellitus Headache, common migraine, intractable, with status migrainosus Pleural effusion 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 History of lung surgery -s/p LLL lobectomy secondary to cavitary pneumonia (2017) History of endoscopy History of cholecystectomy Family History Grandfather Diabetes Mother CAD (coronary artery disease) Diabetes Heart disease Hypertension Brother Acute lymphoblastic leukemia (ALL) in child Grandmother Thyroid disease Denies family history of Colon cancer Ovarian cancer Prostate cancer Hyperlipidemia Breast cancer Uterine cancer Stroke Social History Smoking and tobacco/nicotine status: former use of tobacco/nicotine Quit status (tobacco/nicotine): has quit using Former quit date comment: She previously smoked <1/2 PPD, quit July 2023. Second hand smoke exposure: Yes Alcohol intake: never Substance/Drug Use: current Household members: children Housing: House Marital status: Single Current occupational status: unemployed Physical Exam 2 Const: COMMON NORMALS: no acute distress GENERAL APPEARANCE: cooperative; not ill appearing and not frail appearing HENMT: COMMON NORMALS: normocephalic, atraumatic and Normal external nose present HEAD & SCALP: normocephalic and atraumatic FACE & SINUS: normal facial exam and face symmetric NOSE: Normal external nose present Eye: COMMON NORMALS: Equal, round and reactive pupils present and EOMs intact bilaterally PUPIL: Yes Equal, round and reactive pupils present Neck/C-Spine: GENERAL: Yes trachea midline Chest: CHEST: Yes Symmetrical chest wall rise Resp: COMMON NORMALS: normal respiratory effort, No retractions, No use of accessory muscles and clear to auscultation bilaterally AUSCULTATION: clear to auscultation bilaterally Cardio: COMMON NORMALS: regular rate and regular rhythm RATE: regular rate RHYTHM: regular rhythm GI: COMMON NORMALS: Normal to inspection, nondistended, normoactive bowel sounds present : BLADDER/KIDNEY EXAM: Yes CVA tenderness Back/Pelvis: GENERAL BACK: Yes CVA tenderness CVA tenderness: bilateral Neuro: JEET COMA SCALE: document GCS findings [place] coma scale eye opening: Spontaneous [place] coma scale verbal response: Orientated Jeet coma scale motor response: Obey commands [place] coma scale total score: 15 S ENSORY EXAM: Yes extremities (intact) Psych: COMMON NORMALS: speech normal SPEECH: Yes normal speech Course 2 Vital Signs: Vital signs: Vital Signs Temperature 98 F 02/13/25 21:54 Pulse Rate 69 02/13/25 23:54 Respiratory Rate 18 02/13/25 21:54 Blood Pressure 169/83 02/13/25 23:54 Pulse Oximetry 96 02/13/25 23:54 Oxygen Delivery Me thod Room Air 02/13/25 21:54 MDM - Abdominal Pain Medical Decision Making Blood pressures improved. Currently 169/83. IV access has been difficult in this patient, and has not yet obtained. White blood cell count is 7.3. CRP is 3. However, her potassium is 6. Magnesium is normal. Will admit to ICU. Insulin/dextrose, sodium bicarbonate, Kayexalate for hyperkalemia. Dialyze later this morning. Spoke with hospitalist. He will see the patient. Lab Data 02/13/25 23:05 02/13/25 23:05 Labs/Radiology: Laboratory Results WBC 7.25 10^3/uL (3.29-11.43) 02/13/25 23:05 RBC 2.92 10^6/uL (3.85-5.65) L 02/13/25 23:05 Hgb 9.20 g/dL (11.27-16.99) L 02/13/25 23:05 Hct 29.2 % (36-47) L 02/13/25 23:05 MCV 100.0 fl (85-98) H 02/13/25 23:05 MCH 31.5 pg (27-33) 02/13/25 23: MCHC 31.5 g/dL (30-55) 02/13/25 23:05 RDW 13.2 % (12.1-15.1) 02/13/25 23:05 Plt Count 101 10^3/cmm (157-399) L 02/13/25 23:05 MPV 9.7 fL (7.4-10.4) 02/13/25 23:05 Neut % (Auto) 67.9 % 02/13/25 23:05 Lymph % (Auto) 21.2 % 02/13/25: [place] % (Auto) 6.2 % 02/13/25:05 Eos % (Auto) 3.0 % 02/13/25 23:05 Baso % (Auto) 0.7 % 02/13/25 23:05 Neut # (Auto) 4.92 10^3/uL (1.8-7.7) 02/13/25 23:05 Lymph # (Auto) 1.5 10^3/uL (0.8-4.8) 02/13/25 23:05 [place] # (Auto) 0.5 10^3/uL (0.2-0.9) 02/13/25 23:05 Eos # (Auto) 0.2 10^3/uL (0.0-0.8) 02/13/25 23:05 Baso # (Auto) 0.1 10^3/uL (0.0-0.1) 02/13/25 23:05 Nucleated RBC % (auto) 0 % 02/13/25:05 Nucleated RBCs # 0.0 /100WBC 02/13/25 23:05 Sodium 136 mmol/L (136-145) 02/13/25 23:05 Potassium 6.0 mmol/L (3.5-5.1) H 02/13/25 23:05 Chloride 99 mmol/L (98-107) 02/13/25 23:05 Carbon Dioxide 22 mmol/L (22-29) 02/13/25 23:05 Anion Gap 21.0 (5-19) H 02/13/25 23:05 BUN 30 mg/dL (6-20) H 02/13/25 23:05 Creatinine 6.2 mg/dL (0.5-0.9) H* 02/13/25 23:05 GFR Calculation 7.6 mL/min (90-130) L 02/13/25 23:05 Glucose 164 mg/dL (65-115) H 02/13/25 23:05 Calculated Osmolality 292 mOsm/kg (285-295) 02/13/25 23:05 Calcium 8.3 mg/dL (8.5-10.5) L 02/13/25 23:05 Phosphorus 4.2 mg/dL (2.5-4.5) 02/13/25 23:05 Magnesium 2.1 mg/dL (1.7-2.3) 02/13/25 23:05 Total Bilirubin 0.3 mg/dL (0.15-1.2) 02/13/25 23:05 AST 20 U/L (0-32) 02/13/25 23:05 ALT 26 U/L (0-33) 02/13/25 23:05 Alkaline Phosphatase 181 U/L (35-105) H 02/13/25 23:05 C-Reactive Protein 3.0 mg/L (0.0-4.9) 02/13/25 23:05 Total Protein 7.3 g/dL (6.6-8.7) 02/13/25 23:05 Albumin 3.6 g/dL (3.5-5.2) 02/13/25 23:05 Globulin 3.7 g/dL (1.3-4.6) 02/13/25 23:05 Lipase 28 U/L (13-60) 02/13/25 23:05 No radiology studies performed this visit Discharge Plan Discharge Patient Disposition: Admitted As Inpatient Clinical Impression: ESRD (end stage renal disease), Acute hyperkalemia Condition: Fair Coding Level of Care Code ED Lap Machine Operator for Reji Chandler
[2025-02-13] MEDS: HYDROmorphone 0.5 MG/0.5 ML INJ 1 MG IM (23:20)
[2025-02-13] MEDS: ondansetron hcl ODT 4 mg Tab PO (23:20)
[2025-02-13 23:30] LABS: Hematocrit 29.2 % (36-47); Hemoglobin 9.20 g/dL (11.27-16.99); Mean Corpuscular HGB Conc 31.5 g/dL (30-55); Mean Corpuscular Hemoglobin 31.5 pg (27-33); Mean Corpuscular Volume 100.0 fl (85-98); Nucleated Red Blood Cells % 0 %; Platelet Count 101 10^3/cmm (157-399); Red Blood Count 2.92 10^6/uL (3.85-5.65); White Blood Count 7.25 10^3/uL (3.29-11.43)
[2025-02-13 23:51] LABS: Alanine Aminotransferase 26 U/L (0-33); Albumin Level 3.6 g/dL (3.5-5.2); Alkaline Phosphatase 181 U/L (35-105); Chloride 99 mmol/L (98-107); Potassium 6.0 mmol/L (3.5-5.1); Sodium 136 mmol/L (136-145)
[2025-02-13 23:54] VITALS: BP 169/83; PULSE 69; O2SAT 96
[2025-02-14] VITALS (84 sets, daily range): BP systolic 96–181; BP diastolic 48–118; PULSE 67–90; RESP 12–25; TEMP 36.7–37.1; O2SAT 88–100
[2025-02-14 00:04] LABS: Slide Review Slide Review Perform
[2025-02-14 00:20] LABS: Anion Gap 21.0 (5-19); Aspartate Amino Transferase 20 U/L (0-32); Blood Urea Nitrogen 30 mg/dL (6-20); Calcium 8.3 mg/dL (8.5-10.5); Carbon Dioxide 22 mmol/L (22-29); Creatinine Clr Calc Pharmacy 13.0207; Globulin 3.7 g/dL (1.3-4.6); Glucose 164 mg/dL (65-115); Lipase 28 U/L (13-60); Magnesium 2.1 mg/dL (1.7-2.3); Osmolality Calculated 292 mOsm/kg (285-295); Total Protein 7.3 g/dL (6.6-8.7)
--- NOTE | 2025-02-14 01:14 | CTR_ITS ---
PROCEDURE INFORMATION: Exam: CT Abdomen And Pelvis Without Contrast Exam date and time: 02/14/2025 1:37 AM Age: 39 years old Clinical indication: Abdominal pain; Prior surgery; Surgery date: 6+ months; Surgery type: Coronary stent. Gb; C/O bilat flank pain. History of esrd. ; Additional info: Bilateral flank pain TECHNIQUE: Imaging protocol: Computed tomography of the abdomen and pelvis without contrast. Radiation optimization: All CT scans at this facility use at least one of these dose optimization techniques: automated exposure control; mA and/or kV adjustment per patient size (includes targeted exams where dose is matched to clinical indication); or iterative reconstruction. COMPARISON: CT abdomen pelvis con [id number] 09/10/2024 1:43 PM RADIATION DOSE METRICS: Total DLP (mGy-cm): 524.38 FINDINGS: Liver: Unremarkable. Gallbladder and biliary ducts: Cholecystectomy. Pancreas: Normal. No ductal dilation. Spleen: Splenic granulomas. Adrenal glands: Unremarkable. Kidneys and ureters: Normal. No hydronephrosis. Stomach and bowel: Unremarkable. No obstruction. No mucosal thickening. Appendix: No evidence of appendicitis. Intraperitoneal space: Surgical changes in the left lower hemithorax. Vasculature: Mild atherosclerotic changes of the aorta and its major branches. Lymph nodes: No enlarged lymph nodes. Urinary bladder: Diffuse circumferential bladder wall thickening may be secondary to underdistention however cannot exclude an acute cystitis. Reproductive: Unremarkable as visualized. Bones/joints: No acute fracture. Soft tissues: Unremarkable. CT/CT abdomen pelvis [facility] [id number] IMPRESSION: 1. Diffuse circumferential bladder wall thickening may be secondary to underdistention however cannot exclude an acute cystitis. 2. Otherwise no acute abdominopelvic abnormality.
--- NOTE | 2025-02-14 01:24 | PM.HP ---
Providers/Chief Complaint Primary Care Provider: SUZANNE Dias Chief Complaint: ABD PAIN History of Present Illness Donita Aguilar is a 39 year old female with a past medical history of end-stage renal disease, diabetes mellitus, hypertension, CAD, who presents [facility] due to bilateral flank pain. Currently patient is alert oriented x 3, following all commands, she tells me that today dialysis had called her and advised her that nobody would be in the dialysis center due to technical difficulties? She missed dialysis today as a result, today she started experiencing bilateral flank pain, she does not urinate much, no fevers, chills, no nausea, no vomiting, does complain of shortness of breath Review of Systems Const: Denies: fever(s), chills, fatigue or malaise Card: Denies: chest pain Resp: Denies: dyspnea GI: Denies: abdominal pain : Reports: flank pain Medications/Allergies Home Medications ?Medication ?Instructions ?Recorded ?Confirmed ?Last Taken ?Type blood-glucose sensor (Dexcom G6 #3 ea 06/12/22 01/14/25 Unknown Rx Sensor device) blood-glucose transmitter (Dexcom #1 ea 06/12/22 01/14/25 Unknown Rx G6 Transmitter device) blood-glucose,public relations specialist,cont #1 ea 06/12/22 01/14/25 Unknown Rx (Dexcom G6 Digital Recruiter) sevelamer carbonate 800 mg tablet 800 mg PO TID #90 tabs 09/16/23 01/14/25 09/26/24 Rx clonidine HCl 0.1 mg tablet See Rx Instructions .Route 11/27/23 01/14/25 Unknown History .COMPLEX PRN Blood Pressure gabapentin 100 mg capsule 100 mg PO TID 12/27/23 01/14/25 09/26/24 History aspirin 81 mg tablet,delayed 81 mg PO QAM 30 days #30 tabs 03/28/24 01/14/25 09/26/24 Rx release atorvastatin 40 mg tablet 40 mg PO BEDTIME 30 days #30 tabs 03/28/24 01/14/25 09/25/24 Rx AFO brace #1 ea 04/20/24 01/14/25 Unknown Rx diabetic shoes with 3 inserts #1 ea 04/20/24 01/14/25 Unknown Rx clopidogrel 75 mg tablet 75 mg PO DAILY 04/28/24 01/14/2525 History escitalopram oxalate 10 mg tablet 10 mg PO DAILY 09/07/24 01/14/25 09/26/24 History amlodipine 5 mg tablet 5 mg PO DAILY #30 tabs 09/30/24 01/14/25 Unknown Rx bumetanide 1 mg tablet See Rx Instructions .Route 09/30/24 01/14/25 09/06/24 Rx .COMPLEX #60 tabs cyclobenzaprine 10 mg tablet 10 mg PO TID #14 tabs 11/10/24 01/14/25 Unknown Rx insulin aspart U-100 100 unit/mL See Rx Instructions .Route 12/28/24 01/14/25 09/26/24 Rx (3 mL) subcutaneous pen (Novolog .COMPLEX #15 mL FlexPen U-100 Insulin aspart) Allergies Allergy/AdvReac Type Severity Reaction Status Date / Time acetaminophen AdvReac Mild ADR-Gastrointestinal Verified 01/14/25 14:02 Upset PFSH Acute PFSH: Medical History HTN (hypertension), benign Hyperkalemia Headache Accelerated hypertension Uncontrolled type 1 diabetes mellitus ESRD (end stage renal disease) Dialysis complication Hypoglycemia Hemodialysis catheter dysfunction Colitis End stage renal disease on dialysis COPD (chronic obstructive pulmonary disease) Diabetes mellitus Transaminitis Intractable nausea and vomiting Hyperlipidemia HTN (hypertension) CHF (congestive heart failure), NYHA class III Pulmonary hypertension CAD (coronary artery disease) Neurogenic bladder COVID-19 Tobacco dependence Drug abuse Anemia Community acquired pneumonia Esophagitis Long-term insulin use History of pancreatitis Celiac disease Recurrent UTI Non-alcoholic fatty liver disease Arnold-Chiari malformation Diabetic gastroparesis -continue Reglan Diabetic neuropathy associated with type 1 diabetes mellitus Headache, common migraine, intractable, with status migrainosus Pleural effusion 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 History of lung surgery -s/p LLL lobectomy secondary to cavitary pneumonia (2017) History of endoscopy History of cholecystectomy Family History Grandfather Diabetes Mother CAD (coronary artery disease) Diabetes Heart disease Hypertension Brother Acute lymphoblastic leukemia (ALL) in child Grandmother Thyroid disease Denies family history of Colon cancer Ovarian cancer Prostate cancer Hyperlipidemia Breast cancer Uterine cancer Stroke Social History Smoking and tobacco/nicotine status: former use of tobacco/nicotine Quit status (tobacco/nicotine): has quit using Former quit date comment: She previously smoked <1/2 PPD, quit July 2023. Second hand smoke exposure: Yes Alcohol intake: never Substance/Drug Use: current Household members: children Housing: House Marital status: Single Current occupational status: unemployed Vitals/I&O/Wt Last Vital Signs Temp 98 F 02/13/25 21:54 Pulse 69 02/13/25 23:54 Resp 18 02/13/25 21:54 BP 169/83 02/13/25 23:54 Pulse Ox 96 02/13/25 23:54 O2 Del Method Room Air 02/13/25 21:54 02/13/25 02/13/25 02/14/25 14:59 22:59 06:59 Intake Total 0 / 0 Balance 0 / 0 Weight last 48 hrs Weight 67.041 kg Physical Exam Const: COMMON NORMALS: no acute distress and patient oriented x3 Resp: COMMON NORMALS: normal respiratory effort, No retractions, No use of accessory muscles and clear to auscultation bilaterally AUSCULTATION: clear to auscultation bilaterally Cardio: COMMON NORMALS: no JVD, regular rate, regular rhythm, S1 normal heart sound present and S2 normal heart sound present RATE: regular rate RHYTHM: regular rhythm HEART SOUNDS: S1 normal heart sound present and S2 normal heart sound present GI: COMMON NORMALS: Normal to inspection, nondistended, normoactive bowel sounds present, Soft to palpation and non-tender Extremity: COMMON NORMALS: no pedal edema Neuro: COMMON NORMALS: patient oriented x3 Psych: COMMON NORMALS: mental status grossly normal Data 02/13/25 23:05 02/13/25 23:05 A&P Assessment and plan 1. HTN (hypertension), benign: 2. CHF (congestive heart failure), NYHA class III: 3. Acute hyperkalemia: 4. End stage renal disease on dialysis: Plan: Acute hyperkalemia - Will receive insulin, D10, calcium gluconate, Kayexalate, bicarb, Bumex - Nephrology to be consulted for dialysis - Telemetry monitoring - Monitor in ICU - Repeat BMP at 4 AM Missed dialysis, fluid overload, end-stage renal disease - Nephrology consulted for dialysis Type 1 diabetes mellitus, low-dose sliding scale Bilateral flank pain, CT scan abdomen pelvis Full code Heparin for DVT prophylaxis PDMP PDMP Reviewed: Not Reviewed Attestations Medical Necessity Statement*: Patient requires hospitalization, inpatient, greater than 2 midnights, for acute acute hyperkalemia, missed dialysis Diagnoses HTN (hypertension), benign I10 CHF (congestive heart failure), NYHA class III I50.9 Acute hyperkalemia E87.5 End stage renal disease on dialysis N18.6; Z99.2
[2025-02-14] MEDS: insulin regular-human 100 units/1 mL 10 UNIT IVP (01:26)
--- NOTE | 2025-02-14 01:27 | ECG_ITS ---
[address] [employer] Test Date: 2025-02-14 Pat Name: Donita Aguilar Department: Room: Gender: Female Firer Automatic Stoker: : 1985 Requested By: Jak Saldana Order Number: [id number] Faviola MD: Gilberto Eugene M.D. Measurements Intervals [place] Rate: 71 P: 47 [place]: 154 QRS: -9 QRSD: 113 T: 31 QT: 447 QTc: 489 Interpretive Statements SINUS RHYTHM INFERIOR MYOCARDIAL INFARCTION , PROBABLY OLD [40+ ms Q WAVE AND/OR ST/T ABNORMALITY IN II/aVF] Possible left atrial enlargement Compared to ECG 01/04/2025 22:48:28 Myocardial infarct finding now present Intraventricular conduction delay no longer present Electronically Signed On 02-14-2025 18:49:08 CDT by iGlberto Eugene M.D. [email or web address]
[2025-02-14] MEDS: calcium gluconate 0.9% NaCL 1 GM/50 ML PREMIX IV (02:03)
[2025-02-14 02:23] LABS: Lactic Sepsis W/Reflex 1.5 mmol/L (0.5-2.2)
[2025-02-14 02:33] LABS: Procalcitonin 0.18 ng/mL (0-0.5)
[2025-02-14] MEDS: morphine 4 mg/mL SDV 1 mL 2 MG IVP ×4 (03:02→20:37)
[2025-02-14 03:03] LABS: NT Pro B Type Natriuretic Pept 51804 pg/mL (0-125)
[2025-02-14 03:04] LABS: Anion Gap 15.2 (5-19); Blood Urea Nitrogen 34 mg/dL (6-20); Calcium 8.3 mg/dL (8.5-10.5); Carbon Dioxide 28 mmol/L (22-29); Chloride 97 mmol/L (98-107); Creatinine Clr Calc Pharmacy 12.2269; Glucose 100 mg/dL (65-115); Osmolality Calculated 288 mOsm/kg (285-295); Potassium 5.2 mmol/L (3.5-5.1); Sodium 135 mmol/L (136-145)
[2025-02-14] MEDS: pantoprazole 40 mg SDV IVP (03:07)
[2025-02-14] MEDS: heparin 5,000 unit/mL INJ 1 mL 5000 UNIT SUBCUT ×2 (03:07→16:05)
[2025-02-14 03:26] LABS: Thyroid Stimulating Hormone 3.56 uIU/mL (0.27-4.20)
[2025-02-14] MEDS: ondansetron 2 mg/ML SDV 2 mL 4 MG IVP ×3 (09:38→21:36)
--- NOTE | 2025-02-14 09:39 | PM.CONSULT ---
Providers/Reason For Consult Consulting Physician/Specialty*: kommana/Nephrology Reason for Consult*: ESRD Attending Physician: Barbara Guevara MD Primary Care Provider: SUZANNE Dias History of Present Illness History of Present Illness Donita Aguilar is a 39 year old female Patient is a 39-year-old female with past medical history of end-stage renal disease on dialysis, on Saturday schedule, diabetes, hypertension, coronary artery disease presented to the emergency department due to bilateral flank pain. She also tells me that dialysis unit have some technical issues and her dialysis session was rescheduled to Saturday but patient started having flank pain, shortness of breath and presented to the ED. Elevated blood pressure in the ED noted, Lab data significant for hemoglobin of 9.2 potassium was 6.0. Review of Systems Narrative: negative Medications/Allergies Home Medications ?Medication ?Instructions ?Recorded ?Confirmed ?Last Taken ?Type blood-glucose sensor (Dexcom G6 #3 ea 06/12/22 02/14/25 Unknown Rx Sensor device) blood-glucose transmitter (Dexcom #1 ea 06/12/22 02/14/25 Unknown Rx G6 Transmitter device) blood-glucose,broom maker,cont #1 ea 06/12/22 02/14/25 Unknown Rx (Dexcom G6 Book Store Associate) sevelamer carbonate 800 mg tablet 800 mg PO TID #90 tabs 09/16/23 02/14/25 02/13/25 Rx clonidine HCl 0.1 mg tablet See Rx Instructions .Route 11/27/23 02/14/25 Unknown History .COMPLEX PRN Blood Pressure gabapentin 100 mg capsule 100 mg PO TID 12/27/23 02/14/25 02/13/25 History aspirin 81 mg tablet,delayed 81 mg PO QAM 30 days #30 tabs 03/28/24 02/14/25 02/13/25 Rx release atorvastatin 40 mg tablet 40 mg PO BEDTIME 30 days #30 tabs 03/28/24 02/14/25 02/12/25 Rx AFO brace #1 ea 04/20/24 02/14/25 Unknown Rx diabetic shoes with 3 inserts #1 ea 04/20/24 02/14/25 Unknown Rx clopidogrel 75 mg tablet 75 mg PO DAILY 04/28/24 02/14/25 02/13/25 History amlodipine 5 mg tablet 5 mg PO DAILY #30 tabs 09/30/24 02/14/25 02/13/25 Rx bumetanide 1 mg tablet See Rx Instructions .Route 09/30/24 02/14/25 02/11/25 Rx .COMPLEX #60 tabs cyclobenzaprine 10 mg tablet 10 mg PO TID #14 tabs 11/10/24 02/14/25 Unknown Rx insulin aspart U-100 100 unit/mL See Rx Instructions .Route 12/28/24 02/14/25 02/13/25 Rx (3 mL) subcutaneous pen (Novolog .COMPLEX #15 mL FlexPen U-100 Insulin aspart) carvedilol 3.125 mg tablet 3.125 mg PO BID 02/14/25 02/14/25 02/13/25 History escitalopram oxalate 20 mg tablet 20 mg PO DAILY anxiety 02/14/25 02/14/25 02/13/25 History folic acid 1 mg tablet 1 mg PO DAILY 02/14/25 02/14/25 02/13/25 History hydralazine 25 mg tablet 12.5 mg PO BID 02/14/25 02/14/25 02/13/25 History lisinopril 40 mg tablet 40 mg PO DAILY 02/14/25 02/14/25 Unknown History losartan 50 mg tablet 100 mg PO DAILY 02/14/25 02/14/25 02/13/25 History nifedipine 90 mg tablet,extended 90 mg PO DAILY 02/14/25 02/14/25 Unknown History release nitroglycerin 0.4 mg sublingual See Rx Instructions .Route .COMPLEX 02/14/25 02/14/25 Unknown History tablet tizanidine 4 mg tablet See Rx Instructions .Route .COMPLEX 02/14/25 02/14/25 Unknown History Allergies Allergy/AdvReac Type Severity Reaction Status Date / Time acetaminophen AdvReac Mild ADR-Gastrointestinal Verified 01/14/25 14:02 Upset Current Medications Generic Name Dose Route Start Last Admin Trade Name Jan PRN Reason Stop Dose Admin Aspirin 81 mg 02/14/25 09:00 02/14/25 08:18 Aspirin 81 Mg Ec Tablet PO 81 mg DAILY SHAY Administration Bumetanide 1 mg 02/14/25 09:00 02/14/25 08:19 Bumetanide 1 Mg Tablet PO 1 mg BID SHAY Administration Clopidogrel Bisulfate 75 mg 02/14/25 09:00 02/14/25 08:19 Clopidogrel 75 Mg Tablet PO 75 mg DAILY SHAY Administration Escitalopram Oxalate 10 mg 02/14/25 09:00 02/14/25 08:19 Escitalopram 10 Mg Tablet PO 10 mg DAILY SHAY Administration Gabapentin 100 mg 02/14/25 09:00 02/14/25 08:18 Gabapentin 100 Mg Capsule PO 100 mg TID SHAY Administration Heparin Sodium (Porcine) 5,000 unit 02/14/25 02:28 02/14/25 03:07 Heparin 5,000 Unit/Ml Inj 1 Ml SUBCUT 5,000 unit Q12H SHAY Administration Dextrose 250 mls @ 1,000 mls/hr 02/14/25 01:02 02/14/25 03:16 D10w IV Infused PRN PRN Infusion HYPOGLYCEMIA Insulin Human Lispro 0 unit 02/14/25 08:00 02/14/25 08:19 Insulin Lispro 100 Unit/1 Ml SUBCUT 4 unit TIDWM SHAY Administration Protocol Morphine Sulfate 2 mg 02/14/25 02:28 02/14/25 07:13 Morphine 4 Mg/Ml Sdv 1 Ml IVP 2 mg Q4H PRN Administration SEVERE PAIN Ondansetron HCl 4 mg 02/14/25 02:28 02/14/25 09:38 Ondansetron 2 Mg/Ml Sdv 2 Ml IVP 4 mg Q8H PRN Administration vomiting, or N/V if npo Pantoprazole Sodium 40 mg 02/14/25 02:28 02/14/25 03:07 Pantoprazole 40 Mg Sdv IVP 40 mg Q24H SHAY Administration Sevelamer Carbonate 800 mg 02/14/25 09:00 02/14/25 08:19 Sevelamer 800 Mg Tablet PO 800 mg TID SHAY Administration PFSH Acute PFSH: Medical History HTN (hypertension), benign Hyperkalemia Headache Accelerated hypertension Uncontrolled type 1 diabetes mellitus ESRD (end stage renal disease) Dialysis complication Hypoglycemia Hemodialysis catheter dysfunction Colitis End stage renal disease on dialysis COPD (chronic obstructive pulmonary disease) Diabetes mellitus Transaminitis Intractable nausea and vomiting Hyperlipidemia HTN (hypertension) CHF (congestive heart failure), NYHA class III Pulmonary hypertension CAD (coronary artery disease) Neurogenic bladder COVID-19 Tobacco dependence Drug abuse Anemia Community acquired pneumonia Esophagitis Long-term insulin use History of pancreatitis Celiac disease Recurrent UTI Non-alcoholic fatty liver disease Arnold-Chiari malformation Diabetic gastroparesis -continue Reglan Diabetic neuropathy associated with type 1 diabetes mellitus Headache, common migraine, intractable, with status migrainosus Pleural effusion 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 History of lung surgery -s/p LLL lobectomy secondary to cavitary pneumonia (2017) History of endoscopy History of cholecystectomy Family History Grandfather Diabetes Mother CAD (coronary artery disease) Diabetes Heart disease Hypertension Brother Acute lymphoblastic leukemia (ALL) in child Grandmother Thyroid disease Denies family history of Colon cancer Ovarian cancer Prostate cancer Hyperlipidemia Breast cancer Uterine cancer Stroke Social History Smoking and tobacco/nicotine status: former use of tobacco/nicotine Quit status (tobacco/nicotine): has quit using Former quit date comment: She previously smoked <1/2 PPD, quit July 2023. Second hand smoke exposure: Yes Alcohol intake: never Substance/Drug Use: current Household members: children Housing: House Marital status: Single Current occupational status: unemployed Female Reproductive History: Date of last menstrual period: 02/07/25 Vitals/I&O/Wt Last Vital Signs Temp 98.8 F 02/14/25 08:30 Pulse 76 02/14/25 09:00 Resp 14 02/14/25 09:00 BP 140/59 02/14/25 09:00 Pulse Ox 91 02/14/25 09:00 O2 Del Method Room Air 02/14/25 08:45 02/13/25 02/14/25 02/14/25 22:59 06:59 14:59 Intake Total 0 / 0 1000 / 1000 400 / 400 Output Total 300 / 300 Balance 0 / 0 700 / 700 400 / 400 Weight last 48 hrs Weight 66 kg Weight 66 kg Weight 67.041 kg Physical Exam Narrative: awake , alert , no distress PEERLA , No JVD S1S2 RRR per report Lungs with decreased BS ABd soft , non tender No edema Data 02/13/25 23:05 02/14/25 17:05 A&P Assessment and plan 1. ESRD (end stage renal disease): Plan: 1. End-stage renal disease: HD today due to volume overload and hyperkalemia , Ultrafiltration as tolerated, reassess for HD in a.m. 2. Hypertension: Blood pressure elevated, resume home meds and reevaluate after HD 3. Anemia: Will order MAX 4. Hyperkalemia: Low K diet and HD with low K dialysate. 5. History of CHF, UF as tolerated patient evaluated using audiovisual cart. Time spent 40 minutes. PDMP PDMP Reviewed: Not Reviewed Consult Attestations Medical Necessity Statement: per medicne Coding Level of Care Code Acute Code for Chg Fwd Diagnoses ESRD (end stage renal disease) N18.6
[2025-02-14 11:04] LABS: Hepatitis B Surface Antigen Non-Reactive (Nonreactive)
[2025-02-14] MEDS: heparin, porcine 1,000 unit/mL INJ 10 mL 1000 UNIT IV (11:30)
[2025-02-14] MEDS: diphenhydrAMINE 50 mg/mL SDV 1mL IVP (13:02)
--- NOTE | 2025-02-14 13:34 | PM.MISC ---
Miscellaneous Note Purpose of Documentation: No new complaints. Patient seen on dialysis. Will check CMP after dialysis is completed
--- NOTE | 2025-02-14 16:52 | PC.NURSE ---
Patient received dialysis, 3 L removed, patient reports 8/10 pain in lower back, but otherwise feeling like she would like to go home. Dr. Guevara placed orders for post dialysis labs.
[2025-02-14 17:56] LABS: Alanine Aminotransferase 24 U/L (0-33); Albumin Level 3.8 g/dL (3.5-5.2); Alkaline Phosphatase 187 U/L (35-105); Blood Urea Nitrogen 12 mg/dL (6-20); Calcium 8.8 mg/dL (8.5-10.5); Carbon Dioxide 26 mmol/L (22-29); Chloride 98 mmol/L (98-107); Creatinine Clr Calc Pharmacy 27.2391; Globulin 4.1 g/dL (1.3-4.6); Glucose 173 mg/dL (65-115); Osmolality Calculated 282 mOsm/kg (285-295); Sodium 134 mmol/L (136-145); Total Protein 7.9 g/dL (6.6-8.7)
[2025-02-14 18:03] LABS: Anion Gap 14.2 (5-19); Aspartate Amino Transferase 23 U/L (0-32); Potassium 4.2 mmol/L (3.5-5.1)
[2025-02-15] VITALS (52 sets, daily range): BP systolic 104–168; BP diastolic 39–97; PULSE 57–73; RESP 8–23; TEMP 36.6–37.1; O2SAT 90–100
[2025-02-15] MEDS: morphine 4 mg/mL SDV 1 mL 2 MG IVP ×4 (00:41→17:59)
[2025-02-15] MEDS: heparin 5,000 unit/mL INJ 1 mL 5000 UNIT SUBCUT ×2 (01:39→15:37)
[2025-02-15] MEDS: pantoprazole 40 mg SDV IVP (01:39)
[2025-02-15 05:47] LABS: Alanine Aminotransferase 21 U/L (0-33); Albumin Level 3.1 g/dL (3.5-5.2); Alkaline Phosphatase 172 U/L (35-105); Blood Urea Nitrogen 14 mg/dL (6-20); Calcium 8.4 mg/dL (8.5-10.5); Carbon Dioxide 21 mmol/L (22-29); Chloride 101 mmol/L (98-107); Creatinine Clr Calc Pharmacy 19.7483; Globulin 3.7 g/dL (1.3-4.6); Glucose 241 mg/dL (65-115); Osmolality Calculated 290 mOsm/kg (285-295); Sodium 136 mmol/L (136-145); Total Protein 6.8 g/dL (6.6-8.7)
[2025-02-15 05:56] LABS: Anion Gap 18.9 (5-19); Aspartate Amino Transferase 20 U/L (0-32); Potassium 4.9 mmol/L (3.5-5.1)
[2025-02-15 06:50] LABS: Hematocrit 27.7 % (36-47); Hemoglobin 8.50 g/dL (11.27-16.99); Mean Corpuscular HGB Conc 30.7 g/dL (30-55); Mean Corpuscular Hemoglobin 31.5 pg (27-33); Mean Corpuscular Volume 102.6 fl (85-98); Nucleated Red Blood Cells % 0 %; Platelet Count 152 10^3/cmm (157-399); Red Blood Count 2.70 10^6/uL (3.85-5.65); White Blood Count 6.54 10^3/uL (3.29-11.43)
--- NOTE | 2025-02-15 11:32 | US_ITS ---
WS: [id number] RENAL ULTRASOUND HISTORY: flank pain COMPARISON: 02/15/2022 TECHNIQUE: 2-D and color Doppler imaging of the kidney submitted. Right kidney: 8.7 cm x 3.7 cm x 4.0 cm. Cortex: 0.9 cm Low normal size kidney. Very mild diffuse cortical thinning. No obstruction. No solid mass. Left kidney: 8.3 cm x 4.7 cm x 4.5 cm. Cortex: 1.2 cm Mild atrophy with cortical thinning. Increased echogenicity throughout the kidney. Aorta: Normal. Urinary Bladder: Minimally distended. US/US renal BI* [id number] IMPRESSION: 1. Since the prior ultrasound of 02/15/2022 there is been a decrease in overall length of the kidneys and increased echogenicity within the LEFT kidney. Findi ngs consistent with developing atrophy and chronic medical renal disease. 2. No obstruction of either kidney.
[2025-02-15 11:34] LABS: Magnesium 2.2 mg/dL (1.7-2.3)
--- NOTE | 2025-02-15 14:29 | P.PN_ITS ---
Subjective 2 Subjective: reports bilateral flank pain afebrile US ordered Vitals/I&O/Wt Last Vital Signs Temp 97.9 F 02/15/25 13:00 Pulse 67 02/15/25 13:00 Resp 11 L 02/15/25 13:00 BP 119/54 02/15/25 13:00 Pulse Ox 98 02/15/25 13:00 O2 Del Method Room Air 02/15/25 13:00 02/14/25 02/15/25 02/15/25 22:59 06:59 14:59 Intake Total 1380 / 1780 240 / 2020 480 / 480 Output Total 3388 / 3388 Balance -2007 / -1608 240 / -1368 480 / 480 Weight last 48 hrs Weight 141 lb 1.533 oz Weight 144 lb 9.972 oz Weight 145 lb 8.081 oz Weight 145 lb 8.081 oz Weight 147 lb 12.8 oz Physical Exam 2 Const: COMMON NORMALS: no acute distress and patient oriented x3 Neck/C-Spine: COMMON NORMALS: no JVD Resp: COMMON NORMALS: normal respiratory effort, No retractions, No use of accessory muscles and clear to auscultation bilaterally AUSCULTATION: clear to auscultation bilaterally Cardio: COMMON NORMALS: no JVD, regular rate, regular rhythm, S1 normal heart sound present and S2 normal heart sound present RATE: regular rate RHYTHM: regular rhythm HEART SOUNDS: S1 normal heart sound present and S2 normal heart sound present GI: COMMON NORMALS: Normal to inspection, nondistended, normoactive bowel sounds present, Soft to palpation and non-tender PALPATION: Yes Soft to palpation Extremity: COMMON NORMALS: no pedal edema Neuro: COMMON NORMALS: patient oriented x3 Psych: COMMON NORMALS: mental status grossly normal Data 02/15/25 06:24 02/15/25 05:05 A&P Assessment and plan 1. ESRD (end stage renal disease): 2. HTN (hypertension), benign: 3. Uncontrolled type 1 diabetes mellitus: 4. CAD (coronary artery disease): Plan: #ESRD #Hyperkalemia #cytitis #CAD #DM 1. renal US 2. start ceftriaxone 3. monitor labs 4. continue chronic meds including atihypertensives, and insulin dc in next 24 hours PDMP PDMP Reviewed: Not Reviewed Attestations 2 Medical Necessity Statement*: abx Coding Level of Care Code 65705 Diagnoses ESRD (end stage renal disease) N18.6 HTN (hypertension), benign I10 Uncontrolled type 1 diabetes mellitus CAD (coronary artery disease) I25.10
--- NOTE | 2025-02-15 14:43 | P.PN_ITS ---
Subjective 2 Subjective: c/o back pain Medications: Reviewed: Yes Vitals/I&O/Wt Last Vital Signs Temp 97.9 F 02/15/25 13:00 Pulse 67 02/15/25 13:00 Resp 11 L 02/15/25 13:00 BP 119/54 02/15/25 13:00 Pulse Ox 98 02/15/25 13:00 O2 Del Method Room Air 02/15/25 13:00 02/14/25 02/15/25 02/15/25 22:59 06:59 14:59 Intake Total 1380 / 1780 / 2019 480 / 480 Output Total 3388 / 3388 Balance -2007 / 1608 240 / -1368 480 / 480 Weight last 48 hrs Weight 64 kg Weight 65.6 kg Weight 66 kg Weight 66 kg Weight 67.041 kg Physical Exam 2 Narrative: awake , alert , no distress PEERLA , No JVD S1S2 RRR per report Lungs with decreased BS ABd soft , non tender No edema Data 02/15/25 06:24 02/15/25 05:05 A&P Assessment and plan 1. ESRD (end stage renal disease): Plan: 1. End-stage renal disease: HD per TTS scdedule . 2. Hypertension: BP controlled 3. Anemia: s/p MAX 4. Hyperkalemia: Low K diet and HD with low K dialysate, improved 5. History of CHF, UF as tolerated 6. Cystitis : abx per primary team patient evaluated using audiovisual cart. Time spent 40 minutes. PDMP PDMP Reviewed: Not Reviewed Attestations 2 Medical Necessity Statement*: per medicine Coding Level of Care Code Acute Code for Chg Fwd Diagnoses ESRD (end stage renal disease) N18.6
--- NOTE | 2025-02-15 18:55 | PC.NURSE ---
Shift Summary: Uneventful shift. Rested in bed for most of the day. Worked with physical therapy. Frequent complaints of pain for which morphine PRN is available. No dialysis done. .
[2025-02-16] VITALS (37 sets, daily range): BP systolic 114–186; BP diastolic 62–90; PULSE 57–78; RESP 10–23; TEMP 36.8–36.9; O2SAT 86–100
[2025-02-16] MEDS: pantoprazole 40 mg SDV IVP (01:34)
[2025-02-16] MEDS: heparin 5,000 unit/mL INJ 1 mL 5000 UNIT SUBCUT ×2 (01:34→13:42)
[2025-02-16] MEDS: morphine 4 mg/mL SDV 1 mL 2 MG IVP ×3 (01:39→12:26)
[2025-02-16] MEDS: ondansetron 2 mg/ML SDV 2 mL 4 MG IVP (02:29)
[2025-02-16] MEDS: diphenhydrAMINE 50 mg/mL SDV 1mL IVP (10:19)
--- NOTE | 2025-02-16 14:14 | PM.DCS ---
Discharge Providers Date of Admission: 02/14/25 01:05 Date of Discharge: February 16, 2025 Attending Provider at Admission: Shola Carrera MD Attending Provider at Discharge: Hue Miranda MD Primary Care Provider: SUZANNE Dias Diagnoses at Discharge Discharge Diagnosis 1. ESRD (end stage renal disease): Reason for Visit Reason for Visit: ABD PAIN Hospital Course Hospital Course Donita Aguilar is a 39 year old female with a past medical history of end-stage renal disease, diabetes mellitus, hypertension, CAD, who presents [facility] due to bilateral flank pain. Currently patient is alert oriented x 3, following all commands, she tells me that today dialysis had called her and advised her that nobody would be in the dialysis center due to technical difficulties? She missed dialysis today as a result, today she started experiencing bilateral flank pain, she does not urinate much, no fevers, chills, no nausea, no vomiting, does complain of shortness of breath Nephrology consulted. Patient received dialysis. Blood pressure and diabetes managed. Patient did note to have some flank discomfort. Diagnosed with cystitis. No kidney stone. Antibiotic started she discharged with antibiotics. She was discharged in stable condition. Physical Exam Narrative: awake , alert , no distress PEERLA , No JVD S1S2 RRR per report Lungs with decreased BS ABd soft , non tender No edema Discharge Data Studies Completed and Pending Completed Studies During Hospitalization Category Date Time Status CT abdomen pelvis wo con [id number] Stat Cat Scan 02/14/25 01:14 Completed US renal BI* [id number] Routine Ultrasound 02/15/25 11:32 Completed Pending at discharge Category Date Time Status Urinalysis Stat Lab 02/14/25 01:14 Uncollected Radiology Impressions Abdomen/Pelvis CT 02/14/25 01:14 IMPRESSION: 1. Diffuse circumferential bladder wall thickening may be secondary to underdistention however cannot exclude an acute cystitis. 2. Otherwise no acute abdominopelvic abnormality. Renal Ultrasound 02/15/25 11:32 IMPRESSION: 1. Since the prior ultrasound of 02/15/2022 there is been a decrease in overall length of the kidneys and increased echogenicity within the LEFT kidney. Findings consistent with developing atrophy and chronic medical renal disease. 2. No obstruction of either kidney. Laboratory Results WBC 6.54 10^3/uL (3.29-11.43) 02/15/25 06:24 RBC 2.70 10^6/uL (3.85-5.65) L 02/15/25 06:24 Hgb 8.50 g/dL (11.27-16.99) L 02/15/25 06:24 Hct 27.7 % (36-47) L 02/15/25 06:24 MCV 102.6 fl (85-98) H 02/15/25 06:24 MCH 31.5 pg (27-33) 02/15/25 06:24 MCHC 30.7 g/dL (30-55) 02/15/25 06:24 RDW 13.9 % (12.1-15.1) 02/15/25 06:24 Plt Count 152 10^3/cmm (157-399) L 02/15/25 06:24 MPV 10.4 fL (7.4-10.4) 02/15/25 06:24 Neut % (Auto) 54.1 % 02/15/25 06:24 Lymph % (Auto) 30.9 % 02/15/25 06:24 [place] % (Auto) 7.8 % 02/15/25 06:24 Eos % (Auto) 6.1 % 02/15/25 06:24 Baso % (Auto) 0.8 % 02/15/25 06:24 Neut # (Auto) 3.54 10^3/uL (1.8-7.7) 02/15/25 06:24 Lymph # (Auto) 2.0 10^3/uL (0.8-4.8) 02/15/25 06:24 [place] # (Auto) 0.5 10^3/uL (0.2-0.9) 02/15/25 06:24 Eos # (Auto) 0.4 10^3/uL (0.0-0.8) 02/15/25 06:24 Baso # (Auto) 0.1 10^3/uL (0.0-0.1) 02/15/25 06:24 Nucleated RBC % (auto) 0 % 02/15/25 06:24 Nucleated RBCs # 0.0 /100WBC 02/15/25 06:24 Sodium 136 mmol/L (136-145) 02/15/25 05:05 Potassium 4.9 mmol/L (3.5-5.1) 02/15/25 05:05 Chloride 101 mmol/L (98-107) 02/15/25 05:05 Carbon Dioxide 21 mmol/L (22-29) L 02/15/25 05:05 Anion Gap 18.9 (5-19) 02/15/25 05:05 BUN 14 mg/dL (6-20) 02/15/25 05:05 Creatinine 4.0 mg/dL (0.5-0.9) H 02/15/25 05:05 GFR Calculation 12.5 mL/min (90-130) L 02/15/25 05:05 Glucose 241 mg/dL (65-115) H 02/15/25 05:05 POC Glucose 109 mg/dL (70-110) 02/16/25 12:10 Calculated Osmolality 290 mOsm/kg (285-295) 02/15/25 05:05 Lactic Acid 1.5 mmol/L (0.5-2.2) 02/14/25 01:55 Calcium 8.4 mg/dL (8.5-10.5) L 02/15/25 05:05 Phosphorus 4.2 mg/dL (2.5-4.5) 02/13/25 23:05 Magnesium 2.2 mg/dL (1.7-2.3) 02/15/25 05:05 Total Bilirubin 0.3 mg/dL (0.15-1.2) 02/15/25 05:05 AST 20 U/L (0-32) 02/15/25 05:05 ALT 21 U/L (0-33) 02/15/25 05:05 Alkaline Phosphatase 172 U/L (35-105) H 02/15/25 05:05 C-Reactive Protein 3.0 mg/L (0.0-4.9) 02/14/25 01:55 NT-Pro-B Natriuret Pep 58320 pg/mL (0-125) H 02/14/25 01:55 Total Protein 6.8 g/dL (6.6-8.7) 02/15/25 05:05 Albumin 3.1 g/dL (3.5-5.2) L 02/15/25 05:05 Globulin 3.7 g/dL (1.3-4.6) 02/15/25 05:05 Lipase 28 U/L (13-60) 02/13/25 23:05 Procalcitonin 0.18 ng/mL (0-0.5) 02/14/25 01:55 TSH 3.56 uIU/mL (0.27-4.20) 02/14/25 01:55 Hep Bs Antigen Non-reactive (Nonreactive) 02/14/25 01:55 Hep Bs Antibody 12.5 (11.5-1000) 02/14/25 01:55 Hep B Core Total Ab Non-reactive (Nonreactive) 02/14/25 01:55 Vitals Last Vital Signs Temp 98.3 F 02/16/25 13:30 Pulse 77 02/16/25 13:30 Resp 18 02/16/25 13:30 BP 161/88 02/16/25 13:30 Pulse Ox 95 02/16/25 13:30 O2 Del Method Room Air 02/16/25 13:30 Discharge Plan Discharge Patient Disposition: Home Condition: Stable Prescriptions: New cefdinir 300 mg capsule 300 mg PO BID 5 Days Qty: 10 0RF Continued ([facility]) AFO brace See Rx Instructions .Route .MEDSUPPLY Qty: 1 0RF Rx Instructions: As directed to the shoe guys ([facility]) diabetic shoes with 3 inserts See Rx Instructions .Route .MEDSUPPLY Qty: 1 0RF Rx Instructions: As directed to the shoe guys ([facility]) Dexcom G6 Shuttle Hand Misc See Rx Instructions .Route Qty: 1 0RF Rx Instructions: As directed ([facility]) Dexcom G6 Sensor Device See Rx Instructions .Route Qty: 3 0RF Rx Instructions: As directed ([facility]) Dexcom G6 Transmitter Device See Rx Instructions .Route Qty: 1 0RF Rx Instructions: As directed atorvastatin 40 mg tablet 40 mg PO BEDTIME 30 Days Qty: 30 0RF aspirin 81 mg tablet,delayed release (DR/EC) 81 mg PO QAM 30 Days Qty: 30 0RF amlodipine 5 mg Tablet 5 mg PO DAILY Qty: 30 0RF bumetanide 1 mg tablet See Rx Instructions .ROUTE .COMPLEX Qty: 60 0RF Rx Instructions: TAKE 1 TABLET BY MOUTH twice DAILY ON NON-DIALYSIS DAYS cyclobenzaprine 10 mg tablet 10 mg PO TID Qty: 14 0RF sevelamer carbonate 800 mg Tablet 800 mg PO TID Qty: 90 0RF clonidine HCl 0.1 mg tablet See Rx Instructions .ROUTE .COMPLEX PRN (Reason: Blood Pressure) Rx Instructions: TAKE 1 TABLET IF SYSTOLIC BLOOD PRESSURE IS GREATER THAN 160, REPEAT ONCE IF SYSTOLIC BLOOD PRESSURE IS STILL OVER 160 AFTER 1 HOUR. gabapentin 100 mg Capsule 100 mg PO TID clopidogrel 75 mg tablet 75 mg PO DAILY insulin aspart U-100 [Novolog FlexPen U-100 Insulin] 100 unit/mL (3 mL) insulin pen See Rx Instructions .ROUTE .COMPLEX Qty: 15 0RF Rx Instructions: Inject 3 times daily, subcut, after meals, based on low-dose sliding scale losartan 50 mg tablet 100 mg PO DAILY nifedipine 90 mg tablet extended release 90 mg PO DAILY tizanidine 4 mg tablet See Rx Instructions .ROUTE .COMPLEX Rx Instructions: TAKE 1 TABLET BY MOUTH EVERY 6 HOURS FOR MUSCLE SPASM FOR 10 DAYS. hydralazine 25 mg tablet 12.5 mg PO BID carvedilol 3.125 mg tablet 3.125 mg PO BID folic acid 1 mg tablet 1 mg PO DAILY escitalopram oxalate 20 mg tablet 20 mg PO DAILY Discontinued nitroglycerin 0.4 mg tablet, sublingual See Rx Instructions .ROUTE .COMPLEX Rx Instructions: DISSOLVE ONE TABLET UNDER THE TONGUE EVERY 5 MINUTES NEEDED FOR CHEST PAIN. DO NOT EXCEED A TOTAL OF 3 DOSES IN 15 MINUTES. lisinopril 40 mg tablet 40 mg PO DAILY Discharge Order = DC NOW: Discharge Order (Routine); Ordered 02/16/25 Ordered By: Hue Miranda Referrals: [facility] [Outside] Elizabeth Dougherty FNP [Primary Care Provider, Unknown] Discharge Diet: Usual diet Discharge Activity: Resume usual activity Patient Instructions: Hypertension, Hyperkalemia (DC), Peripheral Neuropathy (GEN), Opioid Safety, Patient Portal & [place] Instructions Discharge Attestations Time Spent in Discharge Care*: less than 30 min Status at Discharge: Cognitive status at discharge: cognitively intact, Behavioral status at discharge: cooperative and independent in ADL's, Quality Metrics Clinical Quality Measures [ No reported AMI, CVA or VTE this stay] Coding Level of Care Code 27997 Diagnoses ESRD (end stage renal disease) N18.6
--- NOTE | 2025-02-16 14:19 | P.PN_ITS ---
Subjective 2 Subjective: gettiNg HD Medications: Reviewed: Yes Vitals/I&O/Wt Last Vital Signs Temp 98.3 F 02/16/25 13:30 Pulse 77 02/16/25 13:30 Resp 18 02/16/25 13:30 BP 161/88 02/16/25 13:30 Pulse Ox 95 02/16/25 13:30 O2 Del Method Room Air 02/16/25 13:30 02/15/25 02/16/25 02/16/25 22:59 06:59 14:59 Intake Total 240 / 720 120 / 840 410 / 410 Balance 240 / 720 120 / 840 410 / 410 Weight last 48 hrs Weight 65.998 kg Weight 64 kg Weight 65.6 kg Physical Exam 2 Narrative: awake , alert , no distress PEERLA , No JVD S1S2 RRR per report Lungs with decreased BS ABd soft , non tender No edema Data 02/15/25 06:24 02/15/25 05:05 A&P Assessment and plan 1. ESRD (end stage renal disease): Plan: 1. End-stage renal disease: HD per TTS scdedule . 2. Hypertension: BP controlled 3. Anemia: s/p MAX 4. Hyperkalemia: Low K diet and HD with low K dialysate, improved 5. History of CHF, UF as tolerated 6. Cystitis : abx per primary team patient evaluated using audiovisual cart. Time spent 40 minutes. PDMP PDMP Reviewed: Not Reviewed Attestations 2 Medical Necessity Statement*: per wilson Coding Level of Care Code Acute Code for Chg Fwd Diagnoses ESRD (end stage renal disease) N18.6
--- NOTE | 2025-02-16 14:57 | PC.NURSE ---
Discharge: Patient discharged. Educated on new medications, discontinued medications, and upcoming appointments. Appoinment made with PCP, no appointment made for dialysis as she already has a pre-existing one for the . IV removed. Patient picked up by family member.
== END 2025-02-16 15:00 | disposition home or self-care (01) | DRG 640 ==
LOC: ER 02-14 01:05 → ICU 02-14 01:51
PROVIDERS: Hospitalist; Student in an Organized Health Care Education/Training Program; Admitting Provider Family Medicine; Emergency Provider Emergency Medicine; PCP Nurse Practitioner Family; Visit Provider Internal Medicine
DX: E87.70 Fluid overload, unspecified (principal); N18.6 End stage renal disease; I13.2 Hypertensive heart and chronic kidney disease with heart failure and with stage 5 chronic kidney disease, or end stage renal disease; N30.90 Cystitis, unspecified without hematuria; E10.22 Type 1 diabetes mellitus with diabetic chronic kidney disease; I50.9 Heart failure, unspecified; E10.43 Type 1 diabetes mellitus with diabetic autonomic (poly)neuropathy; K31.84 Gastroparesis; E10.40 Type 1 diabetes mellitus with diabetic neuropathy, unspecified; D63.1 Anemia in chronic kidney disease; E87.5 Hyperkalemia; I25.10 Atherosclerotic heart disease of native coronary artery without angina pectoris; J44.9 Chronic obstructive pulmonary disease, unspecified; I27.20 Pulmonary hypertension, unspecified; N31.9 Neuromuscular dysfunction of bladder, unspecified; E78.5 Hyperlipidemia, unspecified; F41.9 Anxiety disorder, unspecified; Q07.00 Arnold-Chiari syndrome without spina bifida or hydrocephalus; K76.0 Fatty (change of) liver, not elsewhere classified; Z99.2 Dependence on renal dialysis; Z79.82 Long term (current) use of aspirin; Z79.02 Long term (current) use of antithrombotics/antiplatelets; Z79.4 Long term (current) use of insulin; Z95.5 Presence of coronary angioplasty implant and graft; Z87.891 Personal history of nicotine dependence; Z87.440 Personal history of urinary (tract) infections; Z87.01 Personal history of pneumonia (recurrent); Z86.16 Personal history of COVID-19
CPT/HCPCS: 36415; 36416; 74176; 76770; 80048; 80053; 82962; 83605; 83690; 83735; 83880; 84100; 84145; 84443; 85025; 86140; 86705; 86706; 87340; 90935; 93005; 94664; 96372; 96374; 96375; 97161; 99285; J0612; J1171; J1200; J1644; J1815; J2270; J2405; J2470; J7799; J9999; P9047; Q0162; Q3014

== ENCOUNTER 2025-02-22 04:48 | Inpatient (IN) | payer MEDICARE, MEDICAID, SELFPAY ==
[2025-02-22] VITALS (15 sets, daily range): BP systolic 110–188; BP diastolic 57–98; PULSE 67–103; RESP 14–23; TEMP 36.4–37.3; O2SAT 95–100; BMI 26.5
--- NOTE | 2025-02-22 04:52 | ECG_ITS ---
[facility] Test Date: 2025-02-22 Pat Name: Donita Aguilar Department: Room: Gender: Female Concrete Curer: : 1985 Requested By: Jak Saldana Order Number: [id number] Salmeron MD: Vance Valdez M.D. Measurements Intervals [place] Rate: 69 P: -15 MS: 192 QRS: -17 QRSD: 106 T: 37 QT: 423 QTc: 456 Interpretive Statements SINUS RHYTHM Possible old inferior infarct Tracing artifact interferes with interpretation Compared to ECG 02/14/2025 01:27:47 no significant change Electronically Signed On 02-22-2025 13:30:18 CDT by Vance Valdez M.D. [email or web address]
--- NOTE | 2025-02-22 04:52 | XRR_ITS ---
PROCEDURE INFORMATION: Exam: XR Chest Exam date and time: 02/22/2025 4:53 AM Age: 39 years old Clinical indication: Shortness of breath; Prior surgery; Surgery date: 6+ months; Surgery type: Gb; C/O SOB. History of chf and esrd. TECHNIQUE: Imaging protocol: Radiologic exam of the chest. Views: 1 view. COMPARISON: 1. CT angio chest PE protcl [id number] 12/26/2024 1:18 AM 2. X-ray chest 12/25/2024 10:36 PM FINDINGS: Lungs: No CHF/pulmonary edema. Visible lungs appear essentially clear. Pleural spaces: No visible pneumothorax. No definite pleural fluid. Heart/Mediastinum: Heart size is within normal limits. Bones/joints: No significant acute finding. XR/XR chest 1V portable [id number] IMPRESSION: 1. No definite CHF or pneumonia. 2. Other findings discussed above.
--- OUTSIDE RECORDS SUMMARY | 2025-02-22 04:58 | XMS_ITS | Encounter Summary ---
Author Organization [facility], [facility] Address [address] [place] [address] Phone Care Team Providers Care Vocational Trainer Name Role Phone Alexis Garcia MD Primary Care Provider [phone] Encounter Details Date Type Department Care Team (Late st Contact Info) Description 02/18/2025 Orders Only [facility] [address] [place] [address] Chey Navas MD [address] [place] [address] Social History Tobacco Use Types [...] Priority Date/Time Associated Diagnosis Comments HEMATOLOGY Routine 02/18/2025 documented in this encounter Results * (ABNORMAL) HEMATOLOGY (02/18/2025) Hemoglobin 9.1(L) 12.0 - 16.0 g/dL [facility] Hemoglobin x 3 27.3(L) 36.0 - 48.0 % [facility] 02/18/2025 02/19/2025 9:2 7 AM CDT Narrative [facility] - 02/19/2025 Unless otherwise specified, test(s) performed at: [facility], [address] [place] [address] YIELD CLERK: Jose Luis France M.D. For any questions, please call customer service at FREQUENCY:OTHER Resulting Agency Comment Specimen source: Blood us Chey Navas MD LAB BLOOD ORDERABLES Final Re sult [facility] See order comments or contact performing lab Unknown, [place] documented in this encounter Visit Diagnoses Not on filedocumented in this encounter Care Teams Vocational Trainer Relationship Specialty Start Date End Date Alexis Garcia MD [address] [place] [address] PCP - General Family Medicine 04/16/22 documented as of this encounter
--- OUTSIDE RECORDS SUMMARY | 2025-02-22 04:58 | XMS_ITS | Patient Health Record ---
Author Organization [facility] Address [address] [place], [place] [address] Care Team Providers Care Brake Coupler Dinkey Name Role Phone Kayla ALEMAN, Mao Unavailable [phone] Elizabeth Reveles Unavailable Unavailable Allergies Allergen (clinical drug ingredient) Drug/Non Drug Allergy documented on EMR Reaction Allergy Type Onset Date Status Not verifiable (uncoded) Unknown Allergy Active Reason For Referral No Information Plan Of Treatment No Information Insurance Providers Payer Name Payer Address Payer Phone Subscriber Number Group Number Insured Name Patient Relationship to Insured Coverage Start Date Coverage End Date [facility] [address] [address] [place] [phone] [id number] Dontia Aguilar Self - patient is the insured Medical (General) History Medical History History ICD Code See scanned documentation Surgical History Surgery Date(Month/Year) Cholecystectomy, perfromed at [facility] in [place], 02/02/15 Left lower lung lobectomy, 11/2016
--- OUTSIDE RECORDS SUMMARY | 2025-02-22 04:58 | XMS_ITS | Clinical Summary ---
Author Organization [facility] Facility Address [address] [address] Care Team Providers Care Sawyer Helper Name Role Phone Alexis Garcia MD Primary Care Provider [phone] Encounters Date Type Department Care Team Description 02/18/2025 Orders Only [facility], [facility] [address] [place] [address] Chey Navas MD 02/11/2025 [facility], [facility] [address] [place] [address] Chey Navas MD 02/09/2025 Treatment [facility], [facility] [address] [place] [address] Chey Navas MD End stage renal disease; Dependence on renal dialysis 02/04/2025 Orders Only [facility] [address] [place] [address] Chey Navas MD 02/02/2025 Treatment [facility], [facility] [address] [place] [address] Karlene Cespedes NP End stage renal disease; Dependence on renal dialysis 01/28/2025 Treatment [facility], [facility] [address] [place] [address] Melissa Wiley NP End stage renal disease; Dependence on renal dialysis 01/28/2025 Orders Only [facility], [facility] [address] [place] [address] Chey Navas MD 01/21/2025 Orders [facility], [facility] [address] [place] [address] Chey Navas MD 01/14/2025 Orders Only [facility], [facility] [address] [place] [address] Chey Navas MD 01/12/[address] [place] [address], [facility] [address] [place] [address] Chey Navas MD End stage renal disease; Dependence on renal dialysis 01/07/2025 Orders Only [facility], [facility] [address] [place] [address] Chey Navas MD 01/05/2025 Treatment [facility], [facility] [address] [place] [address] Karlene Cespedes NP End stage renal disease; Dependence on renal dialysis 12/31/2024 Orders Only [facility], [facility] [address] [place] [address] Chey Navas MD 12/29/2024 TCM in Dialysis Clinic [facility], [facility] [address] [place] [address] Melissa Wiley NP 12/29/[address] [place] [address], [facility] [address] [place] [address] Melissa Wiley NP End stage renal disease; Dependence on renal dialysis 12/24/2024 Orders Only [facility], [facility] [address] [place] [address] Chey Navas MD 12/22/2024 Treatment [facility], [facility] [address] [place] [address] Melissa Wiley NP End stage renal disease; Dependence on renal dialysis 12/17/2024 Orders [facility], [facility] [address] [place] [address] Chey Navas MD 12/15/2024 Treatment [facility], [facility] [address] [place] [address] Karlene Cespedes NP End stage renal disease; Dependence on renal dialysis 12/10/2024 Orders Only [facility], [facility] [address] [place] [address] Chey Navas MD 12/10/[address] [place] [address], [facility] [address] [place] [address] Chey Navas MD End stage renal disease; Dependence on renal dialysis 12/07/2024 Refill [facility], [facility] [address] [place] [address] Melissa Wiley NP 12/03/2024 Orders Only [facility], [facility] [address] [place] [address] Chey Navas MD 12/01/[address] [place] [address], [facility] [address] [place] [address] Karlene Cespedes NP End stage renal disease; Dependence on renal dialysis 11/26/2024 Orders Only [facility], [facility] [address] [place] [address] Chey Navas MD 11/24/[address] [place] [address] Nephrology [facility], [facility] [address] [place] [address] Karlene Cespedes NP End stage renal disease; [...] Date/Time Associated Diagnosis Comments HEMATOLOGY Routine 02/18/2025 HEMATOLOGY Routine 02/11/2025 HEMATOLOGY Routine 02/04/2025 [facility] [...] 11/26/2024 HEMATOLOGY Routine 11/26/2024 CHEMISTRY Routine 11/26/2024 from Last 3 Months Results * (ABNORMAL) HEMATOLOGY (02/18/2025) Only the most recent of13 resultswithin the time period is included. Hemoglobin 9.1(L) 12.0 - 16.0 g/dL [facility] Hemoglobin x 3 27.3(L) 36.0 - 48.0 % [facility] 02/18/2025 02/19/2025 9:2 7 AM CDT Narrative [facility] - 02/19/2025 Unless otherwise specified, test(s) performed at: [facility], [address] [place] [address] CAREER CENTER ADVISOR: Jose Luis France M.D. For any questions, please call customer service at FREQUENCY:OTHER Resulting Agency Comment Specimen source: Blood us Chey Navas MD LAB BLOOD ORDERABLES Final Re sult Performing Organization Address [facility] Co de Phone Number [facility] See order comments or contact performing lab Unknown, [place] * HD KINETICS (01/28/2025) Only the most recent of3 resultswithin the time period is included. % Urea Reduction 78 65 - 80 % [facility] 01/28/2025 01/29/2025 2:0 2 PM CDT Narrative Resulting Agency Comment Specimen source: Plasma us Chey Navas MD LAB BLOOD ORDERABLES Final Re sult Performing Organization Address [facility] de Phone Number [facility] See order comments or contact performing lab Unknown, [place] * POST CHEMISTRY (01/28/2025) Only the most recent of3 resultswithin the time period is included. BUN Post Dialysis 13 6 - 19 mg/dL [facility] 01/28/2025 01/29/2025 2:0 2 PM CDT Narrative [facility] - 01/30/2025 Unless otherwise specified, test(s) performed at: [facility], [address] [place] [address] CAREER CENTER ADVISOR: Jose Luis France M.D. For any questions, please call customer service at FREQUENCY:MONTHLY Resulting Agency Comment Specimen source: Plasma us Chey Navas MD LAB BLOOD ORDERABLES Final Re sult Performing Organization Address [facility] Co de Phone Number [facility] See order comments or contact performing lab Unknown, [place] * (ABNORMAL) [facility] (01/28/2025) Only the most recent of6 resultswithin the time period is included. BUN [...] 01/29/2025 Unless otherwise specified, test(s) performed at: [facility], [address] [place] [address] CAREER CENTER ADVISOR: Jose Luis France M.D. For any questions, please call customer service at FREQUENCY:MONTHLY Resulting Agency Comment Specimen source: Serum us Chey Navas MD LAB BLOOD ORDERABLES Final Re sult [facility] [facility] See order comments or contact performing lab Unknown, [place] * [facility] Results (01/28/2025) Only the most recent of3 resultswithin the time period is included. WSTDKT/V 2.6 [facility] eKdrt/V 1.56 [facility] nPCR_HD 1.12 [facility] spKt/V (Daugirdas II) 1.79 [facility] eKt/V Gotch 1.56 [facility] [place] eNPCR 1.05 [facility] PCR 57.64 [facility] spKt/V Gotch 1.81 [facility] eKt/V ([place]) 1.55 [facility] 01/28/2025 01/28/2025 [facility] Ordering Provider LAB BLOOD ORDERABLES Final Result [facility] Contact Performing lab Unknown, [place] * (ABNORMAL) SPECIAL CHEMISTRY (11/26/2024) Pathologist [facility] Hemoglobin A1C 6.2(H) 4.8 - 5.9 % [facility] 11/26/2024 11/27/2024 10: 21 AM CDT Narrative [facility] - 11/27/2024 Unless otherwise specified, test(s) performed at: [facility], [address] [place] [address] CAREER CENTER ADVISOR: Jose Luis France M.D. For any questions, please call customer service at FREQUENCY:MONTHLY Resulting Agency Comment Specimen source: Blood Chey Navas MD LAB BLOOD BANK TEST ORDERABLE S Final Result [facility] See order comments or contact performing lab Unknown, [place] from Last [address] [place] [id number] Medicaid [place] ([id number]) Medicare Care Teams Sawyer Helper Relationship Specialty Start Date End Date Alexis Garcia MD [address] [place] [address] PCP - General Family Medicine 04/16/22
--- OUTSIDE RECORDS SUMMARY | 2025-02-22 04:58 | XMS_ITS | Encounter Summary ---
Author Organization [facility] Address [address] [place] [address] Phone Care Team Providers Care Pantry Attendant Name Role Phone Alexis Garcia MD Primary Care Provider [phone] Encounter Details Date Type Department Care Team (Late st Contact Info) Description 04/16/2022 Orders Only [facility] [address] [place] [address] Chronic kidney disease, Stage IV [...] (severe) documented in this encounter Care Teams Pantry Attendant Relationship Specialty Start Date End Date Alexis Garcia MD [address] [place] [address] PCP - General Family Medicine 04/16/22 documented as of this encounter
--- OUTSIDE RECORDS SUMMARY | 2025-02-22 04:58 | XMS_ITS | Encounter Summary ---
Author Organization [facility] Address [address] [place] [address] Care Team Providers Care Concrete Pourer Name Role Phone Shravan Jones DO Primary Care Provider [phone] Encounter Details Date Type Department Care Team (Late st Contact Info) Description 01/07/2017 Lab Requisition [facility] [address] [place] [address] Izabela Diamond MD NO ADDRESS ON FILE Social History Tobacco Use Types Packs/Day Years Used Date Smoking Tobacco: Every Day Cigarettes Comments:pt lethargic Comments Unknown Sex and Gender Information Value Date Recorded Sex Assigned at Not on file 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 Gender Identity Not on file Sexual [...] - 40 mg/dL 01/07/2017 5:27 AM CDT [facility] Blood 01/07/2017 2:23 AM CDT 01/07/2017 5:01 AM CDT Izabela Diamond MD CHEMISTRY ORDERABLES Final Res ult Performing Organization Address City/[facility]/ZIP Co de Phone Number [facility] CLIA# [id number] [address] [place] [address] * (ABNORMAL) C-REACTIVE PROTEIN (01/07/2017 2:23 AM CDT) CRP 16.6(H) 0.0 - 2.9 mg/L 01/07/2017 5:27 AM CDT [facility] Blood 01/07/2017 2:23 AM CDT 01/07/2017 5:01 AM CDT Izabela Diamond MD CHEMISTRY ORDERABLES Final Res ult Performing Organization Address [facility] Co de Phone Number [facility] CLIA# [id number] [address] [place] [address] * (ABNORMAL) BASIC METABOLIC PANEL (01/07/2017 2:23 AM CDT) SODIUM 139 136 - 145 mmol/L 01/07/2017 5:27 AM CDT [facility] [employer] [facility] POTASSIUM 4.1 3.5 - 5.1 mmol/L 01/07/2017 5:27 AM CDT [facility] [employer] [facility] CHLORIDE 104 98 - 107 mmol/L 01/07/2017 5:27 AM CDT [facility] [employer] [facility] CO2 26 21 - 32 mmol/L 01/07/2017 5:27 AM CDT [facility] [employer] [facility] CALCIUM 9.1 8.4 - 10.1 mg/dL 01/07/2017 5:27 AM CDT [facility] [employer] [facility] BUN 14 7 - 17 mg/dL 01/07/2017 5:27 AM CDT [facility] CREATININE 0.82 0.55 - 1.02 mg/dL 01/07/2017 5:27 AM T [facility] GLUCOSE 274(H) 74 - 106 mg/dL 01/07/2017 5:27 AM T [facility] GFR >60 >=60 mL/min/1.7 3 sq meter 01/07/2017 5:27 AM T [facility] Comment: eGFR has not been validated [...] sq meter 01/07/2017 5:27 AM T [facility] ANION GAP 9 4 - 30 mmol/L 01/07/2017 5:27 AM [facility] Blood 01/07/2017 2:23 AM CDT 01/07/2017 5:01 AM CDT us Izabela Diamond MD CHEMISTRY ORDERABLES Final Res ult [facility] CLIA# [id number] [address] [place] [address] * (ABNORMAL) CBC WITH DIFFERENTIAL (01/07/2017 2:23 AM CDT) WBC 9.3 4.5 - 11.0 K/uL 01/07/2017 5:27 AM CDT [facility] RBC 4.19(L) 4.20 - 5.40 M/uL 01/07/2017 5:27 AM CDT [facility] HEMOGLOBIN 10.3(L) 12.0 - 16.0 g/dL 01/07/2017 5:27 AM [facility] HEMATOCRIT 33.2(L) 36.0 - 46.0 % 01/07/2017 5:27 AM [facility] MCV 79.2(L) 84.0 - 103.0 fL 01/07/2017 5:27 AM [facility] MCH 24.6(L) 27.0 - 34.0 pg 01/07/2017 5:27 AM [facility] MCHC 31.0 30.0 - 35.0 g/dL 01/07/2017 5:27 AM [facility] RDW 17.2(H) 11.0 - 14.5 % 01/07/2017 5:27 AM [facility] RDW-STDEV 49.4 37.0 - 54.0 fL 01/07/2017 5:27 AM [facility] PLATELETS 545(H) 140 - 440 K/uL 01/07/2017 5:27 AM [facility] MPV 10.2 8.9 - 12.8 fL 01/07/2017 5:27 AM [facility] NEUTROPHILS 53 42 - 75 % 01/07/2017 5:27 AM [facility] LYMPHOCYTES 26 24 - 44 % 01/07/2017 5:27 AM [facility] MONOCYTES 9 2 - 10 % 01/07/2017 5:27 AM [facility] EOSINOPHILS 11(H) 0 - 7 % 01/07/2017 5:27 AM [facility] BASOPHILS 1 0 - 1 % 01/07/2017 5:27 AM [facility] IMMATURE GRANULOCYTES 0 0 - 2 % 01/07/2017 5:27 AM [facility] NEUTROPHIL ABSOLUTE 4.88 2.00 - 8.00 K/uL 01/07/2017 5:27 AM [facility] LYMPHOCYTE ABSOLUTE 2.45 1.20 - 4.00 K/uL 01/07/2017 5:27 AM [facility] MONOCYTE ABSOLUTE 0.79(H) 0.10 - 0.60 K/uL 01/07/2017 5:27 AM CDT [facility] EOSINOPHIL ABSOLUTE 1.01(H) 0.00 - 0.70 K/uL 01/07/2017 5:27 AM CDT [facility] BASOPHILS ABSOLUTE 0.11 0.00 - 0.20 K/uL 01/07/2017 5:27 AM CDT [facility] IMMATURE GRANULOCYTES ABSOLUTE 0.04 0.00 - 0.10 K/uL 01/07/2017 5:27 AM CDT [facility] Blood 01/07/2017 2:23 AM CDT 01/07/2017 5:01 AM CDT us Izabela Diamond MD HEMATOLOGY ORDERABLES Final Re sult [facility] CLIA# [id number] [address] [place] [phone] documented in this encounter Visit Diagnoses Not on filedocumented in this encounter Care Teams Concrete Pourer Relationship Specialty Start Date End Date Shravan Jones DO [address] [address] PCP - General Family Practice 12/04/16 documented as of this encounter
--- OUTSIDE RECORDS SUMMARY | 2025-02-22 04:58 | XMS_ITS | Clinical Summary ---
Author Organization [facility] Address [address] [facility] Attn: [place] [address] Care Team Providers Care Shader And Toner Name Role Phone Shravan Jones DO Primary Care Provider [phone] Allergies Active Allergy Reactions Criticality Noted Date [...] subcutaneous injection. Active naloxone (NARCAN) 4 mg/spray [place], Non-Aerosol EMERGENCY USE ONLY: Administer 1 spray [...] regarding vascular access for dialysis for ESRD ([facility]) Take 1 Tablet (5 mg) by mouth [...] troponin 09/22/2023 Coronary artery disease invo lving [place] coronary artery of [place] heart without angina pectoris 09/21/2023 End stage [...] STL ABSTRACTION Provider, Abstract 12/30/2024 Orders Only [facility] ([facility] Gastroenterology- [address] [place] [address] Elizabeth Dougherty FNP Fatty liver (Primary Dx) 12/15/2024 External Device Data STL ABSTRACTION Provider, Abstract 12/04/2024 7:00 AM CDT - 12/04/2024 11:59 PM CDT Hospital Encounter [facility] Interventional Radiology [address] [place] [facility] [place] [id number] Chey Navas MD Birlew, Ryan Avery, MD Discharge Disposition: Home or Self Care 12/03/2024 Telephone [facility] Interventional Radiology [address] [place] [address] [place] [phone] Stefani Zimmer, major assembler from Last 3 Months Immunizations Immunization Administration [...] and Family Not on file 09/22/2023 Attends [employer] Not on file 09/21 Active Member [...] on file Legal Sex Female 3:34 PM ISSUER Gender Identity Not on file Sexual Orientation [...] st Contact Info) Description 05/19/2025 9:30 AM ISSUER Office Visit [facility] Gastroenterology- [place] [address] [facility] [address] [place] [address] Abel Menon D, DO [address] [facility] [address] [place] [address] Health Maintenance Due Date Last Done Comments DTAP/TDAP/TD VACCINES (3 - Tdap) 03/14/2000 03/13/20 00, 09/25/1990 DIABETES ANNUAL FOOT EXAM 2004 DIABETES MICROALBUMIN ANNUAL SCREEN 2004 HPV/Cotest (21-29) 2007 HPV VACCINES (1 - 3-dose SCD M series) 2013 CERVICAL CANCER SCREENING 2016 HPV/Cotest (30-65) 2016 PAP SMEAR 2016 LDL CHOLESTEROL ANNUAL 09/20/2024 09/21/2023 INFLUENZA VACCINE (#1) 2025 DIABETES HBA1C Q 6 MONTHS 05/28/20252024, 09/21/2023, 09/14/2023, Additional history exists DIABETES ANNUAL RETINAL EXAM 07/08/2025, 07/08/2024, 07/08/2024, Additional history exists HEPATITIS B VACCINES Completed 03/13/2000, 10/11/1999, 09/06/1999 Medical Devices Implanted Type Area Steam Cleaner Device Identifier Shelf Expiration Date Model / Serial / Lot Max tracy Flour [id number] - [id number] Implanted:Qty : 2 on 12/17/2016 by Deandre Alan MD Biological Left: Lung CR BARD- DAVOL INC 09/19/2019 [id number] / / [id number] Cath Dialysis Glidepath 14.5fr 24cm Std [id number] - [id number] Implanted:Qty : 1 on 03/18/2024 by Asif Mcclellan MD at [facility] Catheter Right: Chest BARD ANGEL VASC 09/21/2025 [id number] / / [id number] Clip Ligating Horizon Red [id number] - Csc - [id number] Implanted:Qty : 1 on 08/10/2024 by Chato Fitch MD at [facility] Clip Left: Arm TELE[employer]LEX INC [id number] 05/16/2029 [id number] / / [id number] Clip Ligating Horizon Med Ti 097829 - [facility] - [id number] Implanted:Qty : 1 on 08/10/2024 by Chato Fitch MD at [facility] Clip Left: Arm TELEFLEX- WECK CLOSURE SYS [id number] 03/31/2029 [id number] / / [id number] Cook Supervisor Ligaclip Sml Mcs20 - [id number] Implanted:Qty : 1 on 08/10/2024 by Chato Fitch MD at [facility] Clip Left: Arm J&J- [employer] [id number] 03/23/2029 MCS20 / / [id number] Closure Perclose Prostyle Sut Mediate 36966-05 - [id number] Implanted:Qty : 1 on 09/24/2023 by Janell Beauchamp MD at [facility] Closure Device N/A: Groin LOVE- VASC DEVICE [id number] 06/23/2025 82894-57 / / [id number] Closure Perclose Prostyle Sut Mediate 13837-28 - [id number] Implanted:Qty : 1 on 10/24/2023 by Janell Beauchamp MD at [facility] Closure Device Right: Groin LOVE- VASC DEVICE [id number] 07/24/2025 02985-80 / / [id number] Oil Slc 8.5ml [id number] - Sgtin:[id number] Implanted:Qty : 1 on 06/23/2024 by Janey Carrera MD at [facility] Right: Eye [employer]INA LAB 12/21/2026 [id number] / [id number]:[id number] / [id number] Graft Vasc Propaten 4-1djg79bu [id number] - [id number] Implanted:Qty : 1 on 08/10/2024 by Chato Fitch MD at [facility] Graft Left: Arm [employer] [id number] 05/21/2027 [id number] / [id number] / Agent Hemostat Surgicel 2x3in 1952s - [id number] Implanted:Qty : 1 on 08/10/2024 by Chato Fitch MD at [facility] Hemostatic Left: Arm J&J- ETHICON INC [id number] 12/21/20283S / / [id number] Hemostatic Surgiflo 8ml W/ Thrombin 2994 - [id number] Implanted:Qty : 1 on 08/10/2024 by Chato Fitch MD at [facility] Hemostatic Left: Arm J&J- ETHICON INC [id number] 10/21/2025 2994 / / [id number] Agent Hemostat Surgicel 2x3in 1952s - [id number] Implanted:Qty : 1 on 08/10/2024 by Chato Fitch MD at [facility] Hemostatic Left: Arm J&J- ETHICON INC [id number] 12/21/20281952S / / [id number] Stent Synergy Xd 3.0x48mm Evrlms Elut [id number] 0 - [id number] Implanted:Qty : 1 on 09/24/2023 by Janell Beauchamp MD at [facility] Stent N/A: Coronary B[employer] SCI GENEVIEVE [id number] 03/31/2025 [id number] / / [id number] Stent Synergy Xd 2.56w75hi Evrlms Elut [id number] 0 - [id number] Implanted:Qty : 1 on 10/24/2023 by Janell Beauchamp MD at [facility] Stent Left: Coronary Bitzer Mobile GENEVIEVE [id number] 08/19/2024 [id number] 220 / / [id number] Control Implant Funmi Procedures Procedure Name Priority Date/Time Associated Diagnosis Comments IR FISTULOGRAM Routine 12/04/2024 9:05 AM CDT ESRD (end stage renal disease) ([facility]) LIPID PANEL Routine 09/21/2023 6:47 PM CDT [...] dialysis. DIAGNOSIS: ESRD (end stage renal disease) ([facility]). Medications: Fentanyl and versed were titrated to effect. Moderate (conscious) sedation for this procedure was performed with continuous physician supervision. Medical history, physical exam, drug dosages, routes of drug administration, monitoring data, and precise times of service are documented in the medical record on the [facility]-approved form, 'Sedative/Analgesic Administration for Diagnostic and Therapeutic [...] transition dilator is exchanged for a 6 Divehi vascular sheath. An 8 mm angioplasty balloon [...] dialysis. DIAGNOSIS: ESRD (end stage renal disease) ([facility]). Medications: Fentanyl and versed were titrated to effect. Moderate (conscious) sedation for this procedure was performed with continuous physician supervision. Medical history, physical exam, drug dosages, routes of drug administration, monitoring data, and precise times of service are documented in the medical record on the [facility]-approved form, 'Sedative/Analgesic Administration for Diagnostic and Therapeutic [...] transition dilator is exchanged for a 6 Divehi vascular sheath. An 8 mm angioplasty balloon [...] (ABNORMAL) LIPID PANEL (09/21/2023 6:47 PM CDT) [facility] CHOLESTEROL 96 <200 mg/dL 09/21/2023 10:29 PM CDT [facility] TRIGLYCERIDE 164(H) <150 mg/dL 09/21/2023 10:29 PM T [facility] HDL 36(L) 40 - 59 mg/dL 09/21/2023 10:29 PM CDT [facility] LDL CALCULATED 27 <100 mg/dL 09/21/2023 10:29 PM T [facility] NON-HDL CHOLESTEROL 60 <130 mg/dL 09/21/2023 10:29 PM T [facility] Blood Venipuncture / Unknown 09/21/2023 6:47 PM CDT 09/21/2023 7:10 PM CDT Narrative [facility] - 09/21/2023 10:29 PM CDT TOTAL [...] ORDERABLES Final R esult Performing Organization Address City/[facility]/ZIP Co de Phone Number [facility] CLIA # [id number] [address] [address] * (ABNORMAL) HEMOGLOBIN A1C (09/21/2023 6:46 PM CDT) HEMOGLOBIN A1C 6.8(H) <=5.6 % 09/23/2023 9:24 AM CDT [facility] [employer] [facility] EST. AVG GLUCOSE, A1C 148 mg/dL 09/23/2023 9:24 AM CDT [facility] [employer] [facility] Blood Venipuncture / Unknown 09/21/2023 6:46 PM CDT 09/21/2023 7:08 PM CDT Narrative [facility] [employer] [facility] - 09/23/2023 9:24 AM CDT HGB A1C INTERPRETATION NORMAL: <5.7% PRE-DIABETES: 5.7 - 6.4% DIABETES: 6.5% OR GREATER Luiz Lacy MD CHEMISTRY ORDERABLES Final R esult Performing Organization Address [facility] Co de Phone Number [facility] CLIA # [id number] [address] [address] from Last 3 Months or Most Recently Relevant to Health Maintenance [place] [place] [id number] [place] PART [place] B Advance Directives For more information, please contact: [phone] * Full Code (Latest Code Status on File) Date Activated Date Inactivated Comments 10/24/2023 2:34 PM 10/25/2023 11:47 AM * Full Code Date Activated Date Inactivated Comments 10/24/2023 9:13 AM 10/24/2023 2:34 PM * Full Code Date Activated Date Inactivated Comments 09/24/2023 3:14 PM 09/25/2023 9:51 PM * Full Code Date Activated Date Inactivated Comments 09/21/2023 5:50 PM 09/24/2023 3:14 PM Care Teams Shader And Toner Relationship Specialty Start Date End Date Shravan Jones DO [address] [place] [phone] PCP - General Family Practice 12/04/16
--- OUTSIDE RECORDS SUMMARY | 2025-02-22 04:58 | XMS_ITS | Encounter Summary ---
Author Organization [facility] Address [address] [place] [address] Care Team Providers Care Aging Room Hand Name Role Phone Shravan Jones DO Primary Care Provider [phone] Encounter Details Date Type Department Care Team (Late st Contact Info) Description 01/07/2017 Lab Requisition [facility] [address] [place] [address] [place] [address] David Ortega MD [address] [place] [address] Social History Tobacco Use Types Packs/Day Years Used Date Smoking Tobacco: Every Day Cigarettes Comments:pt lethargic Comments Unknown Sex and Gender Information Value Date Recorded Sex Assigned at Not on file 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 Stool STOOL SPECIMEN / Unknown 01/07/2017 1:54 PM CDT 01/07/2017 6:53 PM CDT Narrative [facility] [employer] [facility] - 01/07/2017 8:08 PM CDT This [...] MICROBIOLOGY - GENERAL ORDERAB LES Final Result [facility] [employer] [facility] CLIA# [id number] [address] [place] [address] documented in this encounter Visit Diagnoses Not on filedocumented in this encounter Care Teams Aging Room Hand Relationship Specialty Start Date End Date Shravan Jones DO [address] [phone] PCP - General Family Practice 12/04/16 documented as of this encounter
--- OUTSIDE RECORDS SUMMARY | 2025-02-22 04:58 | XMS_ITS | Encounter Summary ---
Author Organization [facility] Address [address] [place] [address] Care Team Providers Care Domestic Freight Forwarder Name Role Phone Shravan Jones DO Primary Care Provider [phone] Encounter Details Date Type Department Care Team (Late st Contact Info) Description 12/12/2016 Nurse Only [facility] 4D Surgery Heart Lung [address] [place] [address] Stephenie Smith RN [address] [place] [address] Social History Tobacco Use Types Packs/Day Years Used Date Smoking Tobacco: Every Day Cigarettes Comments:pt lethargic Comments Unknown Sex and Gender Information Value Date Recorded Sex Assigned at Not on file Legal Sex Female 4:38 AM BANQUET LEAD Gender Identity Not on file Sexual Orientation Not on file documented as of this encounter Plan of Treatment Not on file documented as of this encounter Visit Diagnoses Not on filedocumented in this encounter Care Teams Domestic Freight Forwarder Relationship Specialty Start Date End Date Shravan Jones DO [address] [phone] PCP - General Family Practice 12/04/16 documented as of this encounter
--- OUTSIDE RECORDS SUMMARY | 2025-02-22 04:58 | XMS_ITS | Encounter Summary ---
Author Organization [facility] Address [address] [place] [address] Care Team Providers Care Processing Associate Name Role Phone Shravan Jones DO Primary Care Provider [phone] Encounter Details Date Type Department Care Team (Latest Contact Info) Description 05/14/2003 Outpatient [facility] Oral and Maxillo Surgery[address] [place] [address] Jimmy Tineo, CLIVES NO ADDRESS ON FILE UNSPEC DENTAL CARIES (Primary Dx); TOOTH POSITION ANOMALY Social History Tobacco Use Types Packs/Day Years Used Date Smoking Tobacco: Never Assessed Comments Unknown Sex and Gender Information Value Date Recorded Sex Assigned at Not on file 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
--- OUTSIDE RECORDS SUMMARY | 2025-02-22 04:58 | XMS_ITS | Encounter Summary ---
Author Organization [facility] Address [address] [place] [address] Care Team Providers Care Head Boys Golf Coach Name Role Phone Shravan Jones DO Primary Care Provider Encounter Details Date Type Department Care Team (Late st Contact Info) Description 12/31/2016 Lab Requisition [facility] Services [address] [place] [address] [place] [address] David Ortega MD [address] [place] [address] Social History Tobacco Use Types Packs/Day Years Used Date Smoking Tobacco: Every Day Cigarettes Comments:pt lethargic Comments Unknown Sex and Gender Information Value Date Recorded Sex Assigned at Not on file 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 This will have limited patient impact. us David Ortega MD CHEMISTRY ORDERABLES Final Res ult [facility] CLIA# [id number] [address] [place] [address] * (ABNORMAL) COMPREHENSIVE METABOLIC PANEL (12/31/2016 2:26 AM CDT) SODIUM 138 136 - 145 mmol/L 12/31/2016 5:52 AM CDT [facility] POTASSIUM 4.7 3.5 - 5.1 mmol/L 12/31/2016 5:52 AM [facility] CHLORIDE 102 98 - 107 mmol/L 12/31/2016 5:52 AM T [facility] CO2 27 21 - 32 mmol/L 12/31/2016 5:52 AM T [facility] CALCIUM 9.1 8.4 - 10.1 mg/dL 12/31/2016 5:52 AM T [facility] BUN 17 7 - 17 mg/dL 12/31/2016 5:52 AM T [facility] CREATININE 0.87 0.55 - 1.02 mg/dL 12/31/2016 5:52 AM T [facility] GLUCOSE 214(H) 74 - 106 mg/dL 12/31/2016 5:52 AM T [facility] TOTAL PROTEIN 8.2 6.4 - 8.2 g/dL 12/31/2016 5:52 AM T [facility] ALBUMIN 1.9(L) 3.4 - 5.0 g/dL 12/31/2016 5:52 AM CDT [facility] BILIRUBIN TOTAL 0.2 0.2 - 1.0 mg/dL 12/31/2016 5:52 AM CDT [facility] ALKALINE PHOSPHATASE 95 25 - 100 U/L 12/31/2016 5:52 AM CDT [facility] AST 9(L) 15 - 37 U/L 12/31/2016 5:52 AM CDT [facility] ALT 14 13 - 61 U/L 12/31/2016 5:52 AM CDT [facility] GFR >60 >=60 mL/min/1.7 3 sq meter 12/31/2016 5:52 AM T [facility] Comment: eGFR has not been [...] 3 sq meter 12/31/2016 5:52 AM CDT [facility] ANION GAP 9 4 - 30 mmol/L 12/31/2016 5:52 AM T [facility] Blood 12/31/2016 2:26 AM CDT 12/31/2016 5:17 AM CDT us David Ortega MD CHEMISTRY ORDERABLES Final Res ult [facility] CLIA# [id number] [address] [place] [address] * (ABNORMAL) CBC WITH DIFFERENTIAL (12/31/2016 2:26 AM CDT) WBC 13.7(H) 4.5 - 11.0 K/uL 12/31/2016 6:32 AM [facility] RBC 3.66(L) 4.20 - 5.40 M/uL 12/31/2016 6:32 AM [facility] HEMOGLOBIN 9.3(L) 12.0 - 16.0 g/dL 12/31/2016 6:32 AM [facility] [employer] [facility] HEMATOCRIT 29.6(L) 36.0 - 46.0 % 12/31/2016 6:32 AM [facility] [employer] [facility] MCV 80.9(L) 84.0 - 103.0 fL 12/31/2016 6:32 AM [facility] [employer] [facility] MCH 25.4(L) 27.0 - 34.0 pg 12/31/2016 6:32 AM [facility] MCHC 31.4 30.0 - 35.0 g/dL 12/31/2016 6:32 AM [facility] [employer] [facility] RDW 17.4(H) 11.0 - 14.5 % 12/31/2016 6:32 AM [facility] [employer] [facility] RDW-STDEV 52.1 37.0 - 54.0 fL 12/31/2016 6:32 AM [facility] [employer] [facility] PLATELETS 767(H) 140 - 440 K/uL 12/31/2016 6:32 AM [facility] [employer] [facility] MPV 9.0 8.9 - 12.8 fL 12/31/2016 6:32 AM [facility] [employer] [facility] NEUTROPHILS 68 42 - 75 % 12/31/2016 6:32 AM [facility] [employer] [facility] LYMPHOCYTES 17(L) 24 - 44 % 12/31/2016 6:32 AM [facility] [employer] [facility] MONOCYTES 8 2 - 10 % 12/31/2016 6:32 AM [facility] [employer] [facility] EOSINOPHILS 6 0 - 7 % 12/31/2016 6:32 AM [facility] [employer] [facility] BASOPHILS 0 0 - 1 % 12/31/2016 6:32 AM [facility] [employer] [facility] IMMATURE GRANULOCYTES 1 0 - 2 % 12/31/2016 6:32 AM CDT [facility] NEUTROPHIL ABSOLUTE 9.26(H) 2.00 - 8.00 K/uL 12/31/2016 6:32 AM CDT [facility] LYMPHOCYTE ABSOLUTE 2.28 1.20 - 4.00 K/uL 12/31/2016 6:32 AM CDT [facility] MONOCYTE ABSOLUTE 1.07(H) 0.10 - 0.60 K/uL 12/31/2016 6:32 AM CDT [facility] EOSINOPHIL ABSOLUTE 0.82(H) 0.00 - 0.70 K/uL 12/31/2016 6:32 AM CDT [facility] BASOPHILS ABSOLUTE 0.06 0.00 - 0.20 K/uL 12/31/2016 6:32 AM CDT [facility] IMMATURE GRANULOCYTES ABSOLUTE 0.17(H) 0.00 - 0.10 K/uL 12/31/2016 6:32 AM CDT [facility] Blood 12/31/2016 2:26 AM CDT 12/31/2016 5:17 AM CDT Narrative [facility] - 12/31/2016 6:32 AM CDT Smear reviewed us David Ortega MD HEMATOLOGY ORDERABLES Final Re sult [facility] CLIA# [id number] [address] [place] [address] documented in this encounter Visit Diagnoses Not on filedocumented in this encounter Care Teams Head Boys Golf Coach Relationship Specialty Start Date End Date Shravan Jones DO [address] [address] PCP - General Family Practice 12/04/16 documented as of this encounter
--- OUTSIDE RECORDS SUMMARY | 2025-02-22 04:58 | XMS_ITS | Encounter Summary ---
Author Organization [facility] Address [address] [place] [address] Care Team Providers Care Dopster Name Role Phone Shravan Jones DO Primary Care Provider Encounter Details Date Type Department Care Team (Late st Contact Info) Description 01/09/2017 Lab Requisition [facility] Laboratory Services [facility] [address] [place] [address] Izabela Diamond MD NO ADDRESS ON FILE Social History Tobacco Use Types Packs/Day Years Used Date Smoking Tobacco: Every Day Cigarettes Comments:pt lethargic Comments Unknown Sex and Gender Information Value Date Recorded Sex Assigned at Not on file 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 This will have limited patient impact. us Izabela Diamond MD CHEMISTRY ORDERABLES Final Res ult [facility] CLIA# [id number] [address] [place] [address] * (ABNORMAL) COMPREHENSIVE METABOLIC PANEL (01/09/2017 3:15 AM CDT) SODIUM 139 136 - 145 mmol/L 01/09/2017 5:53 AM CDT [facility] POTASSIUM 4.1 3.5 - 5.1 mmol/L 01/09/2017 5:53 AM T [facility] CHLORIDE 101 98 - 107 mmol/L 01/09/2017 5:53 AM T [facility] CO2 28 21 - 32 mmol/L 01/09/2017 5:53 AM T [facility] CALCIUM 8.8 8.4 - 10.1 mg/dL 01/09/2017 5:53 AM T [facility] BUN 18(H) 7 - 17 mg/dL 01/09/2017 5:53 AM T [facility] CREATININE 0.73 0.55 - 1.02 mg/dL 01/09/2017 5:53 AM T [facility] GLUCOSE 182(H) 74 - 106 mg/dL 01/09/2017 5:53 AM T [facility] TOTAL PROTEIN 8.4(H) 6.4 - 8.2 g/dL 01/09/2017 5:53 AM T [facility] ALBUMIN 2.5(L) 3.4 - 5.0 g/dL 01/09/2017 5:53 AM CDT [facility] BILIRUBIN TOTAL 0.2 0.2 - 1.0 mg/dL 01/09/2017 5:53 AM CDT [facility] ALKALINE PHOSPHATASE 99 25 - 100 U/L 01/09/2017 5:53 AM CDT [facility] AST 30 15 - 37 U/L 01/09/2017 5:53 AM CDT [facility] ALT 27 13 - 61 U/L 01/09/2017 5:53 AM CDT [facility] GFR >60 >=60 mL/min/1.7 3 sq meter 01/09/2017 5:53 AM T [facility] Comment: eGFR has not been [...] sq meter 01/09/2017 5:53 AM CDT [facility] ANION GAP 10 4 - 30 mmol/L 01/09/2017 5:53 AM T [facility] Blood 01/09/2017 3:15 AM CDT 01/09/2017 5:12 AM CDT us Izabela Diamond MD CHEMISTRY ORDERABLES Final Res ult [facility] CLIA# [id number] [address] [place] [address] * (ABNORMAL) CBC WITH DIFFERENTIAL (01/09/2017 3:15 AM CDT) WBC 8.7 4.5 - 11.0 K/uL 01/09/2017 5:20 AM [facility] RBC 4.63 4.20 - 5.40 M/uL 01/09/2017 5:20 AM [facility] HEMOGLOBIN 11.3(L) 12.0 - 16.0 g/dL 01/09/2017 5:20 AM [facility] HEMATOCRIT 36.8 36.0 - 46.0 % 01/09/2017 5:20 AM [facility] MCV 79.5(L) 84.0 - 103.0 fL 01/09/2017 5:20 AM [facility] MCH 24.4(L) 27.0 - 34.0 pg 01/09/2017 5:20 AM [facility] MCHC 30.7 30.0 - 35.0 g/dL 01/09/2017 5:20 AM [facility] RDW 17.3(H) 11.0 - 14.5 % 01/09/2017 5:20 AM [facility] RDW-STDEV 50.4 37.0 - 54.0 fL 01/09/2017 5:20 AM [facility] PLATELETS 463(H) 140 - 440 K/uL 01/09/2017 5:20 AM [facility] MPV 9.9 8.9 - 12.8 fL 01/09/2017 5:20 AM [facility] NEUTROPHILS 46 42 - 75 % 01/09/2017 5:20 AM [facility] LYMPHOCYTES 33 24 - 44 % 01/09/2017 5:20 AM [facility] MONOCYTES 8 2 - 10 % 01/09/2017 5:20 AM [facility] EOSINOPHILS 11(H) 0 - 7 % 01/09/2017 5:20 AM [facility] BASOPHILS 1 0 - 1 % 01/09/2017 5:20 AM [facility] IMMATURE GRANULOCYTES 0 0 - 2 % 01/09/2017 5:20 AM [facility] NEUTROPHIL ABSOLUTE 4.05 2.00 - 8.00 K/uL 01/09/2017 5:20 AM CDT [facility] LYMPHOCYTE ABSOLUTE 2.86 1.20 - 4.00 K/uL 01/09/2017 5:20 AM CDT [facility] MONOCYTE ABSOLUTE 0.73(H) 0.10 - 0.60 K/uL 01/09/2017 5:20 AM CDT [facility] EOSINOPHIL ABSOLUTE 0.95(H) 0.00 - 0.70 K/uL 01/09/2017 5:20 AM CDT [facility] BASOPHILS ABSOLUTE 0.11 0.00 - 0.20 K/uL 01/09/2017 5:20 AM CDT [facility] IMMATURE GRANULOCYTES ABSOLUTE 0.03 0.00 - 0.10 K/uL 01/09/2017 5:20 AM CDT [facility] Blood 01/09/2017 3:15 AM CDT 01/09/2017 5:12 AM CDT us Izabela Diamond MD HEMATOLOGY ORDERABLES Final Re sult [facility] CLIA# [id number] [address] [place] [address] * (ABNORMAL) HEMOGLOBIN A1C (01/09/2017 2:52 AM CDT) HEMOGLOBIN A1C 8.9(H) 4.0 - 6.0 % 01/09/2017 1:31 PM CDT [facility] EST. AVG GLUCOSE, A1C 209 mg/dL 01/09/2017 1:31 PM CDT [facility] Blood 01/09/2017 2:52 AM CDT 01/09/2017 6:53 AM CDT Narrative [facility] - 01/09/2017 1:31 PM CDT Test performed on JJ PHAR[employer] instrumentation using HPLC methodology us Izabela Diamond MD CHEMISTRY ORDERABLES Final Res ult [facility] CLIA# [id number] [address] [place] [address] documented in this encounter Visit Diagnoses Not on filedocumented in this encounter Care Teams Dopster Relationship Specialty Start Date End Date Shravan Jones DO [address] [address] PCP - General Family Practice 12/04/16 documented as of this encounter
--- OUTSIDE RECORDS SUMMARY | 2025-02-22 04:58 | XMS_ITS | Encounter Summary ---
Author Organization [facility] Address [address] [place] [address] Care Team Providers Care Home Hospice Aide Name Role Phone Shravan Jones DO Primary Care Provider Encounter Details Date Type Department Care Team (Late st Contact Info) Description 01/02/2017 Lab Requisition [facility] Laboratory Services [address] [place] [address] [place] [address] Izabela Diamond MD NO ADDRESS ON FILE Social History Tobacco Use Types Packs/Day Years Used Date Smoking Tobacco: Every Day Cigarettes Comments:pt lethargic Comments Unknown Sex and Gender Information Value Date Recorded Sex Assigned at Not on file 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 POTASSIUM 4.3 3.5 - 5.1 mmol/L 01/02/2017 6:07 AM CDT [facility] CHLORIDE 101 98 - 107 mmol/L 01/02/2017 6:07 AM T [facility] CO2 27 21 - 32 mmol/L 01/02/2017 6:07 AM T [facility] CALCIUM 9.7 8.4 - 10.1 mg/dL 01/02/2017 6:07 AM T [facility] BUN 16 7 - 17 mg/dL 01/02/2017 6:07 AM [facility] CREATININE 0.87 0.55 - 1.02 mg/dL 01/02/2017 6:07 AM T [facility] GLUCOSE 122(H) 74 - 106 mg/dL 01/02/2017 6:07 AM [facility] GFR >60 >=60 mL/min/1.7 3 sq meter 01/02/2017 6:07 AM T [facility] Comment: eGFR has not been validated for [...] meter 01/02/2017 6:07 AM CDT [facility] ANION GAP 10 4 - 30 mmol/L 01/02/2017 6:07 AM T [facility] Blood 01/02/2017 3:00 AM CDT 01/02/2017 5:35 AM CDT us Izabela Diamond MD CHEMISTRY ORDERABLES Final Res ult [facility] CLIA# [id number] [address] [place] [address] * (ABNORMAL) CBC WITH DIFFERENTIAL (01/02/2017 3:00 AM CDT) [facility] WBC 10.4 4.5 - 11.0 K/uL 01/02/2017 5:44 AM [facility] RBC 4.30 4.20 - 5.40 M/uL 01/02/2017 5:44 AM [facility] HEMOGLOBIN 10.4(L) 12.0 - 16.0 g/dL 01/02/2017 5:44 AM [facility] HEMATOCRIT 34.5(L) 36.0 - 46.0 % 01/02/2017 5:44 AM [facility] MCV 80.2(L) 84.0 - 103.0 fL 01/02/2017 5:44 AM [facility] MCH 24.2(L) 27.0 - 34.0 pg 01/02/2017 5:44 AM [facility] MCHC 30.1 30.0 - 35.0 g/dL 01/02/2017 5:44 AM [facility] RDW 17.4(H) 11.0 - 14.5 % 01/02/2017 5:44 AM [facility] RDW-STDEV 51.1 37.0 - 54.0 fL 01/02/2017 5:44 AM [facility] PLATELETS 764(H) 140 - 440 K/uL 01/02/2017 5:44 AM [facility] MPV 9.2 8.9 - 12.8 fL 01/02/2017 5:44 AM [facility] NEUTROPHILS 56 42 - 75 % 01/02/2017 5:44 AM [facility] LYMPHOCYTES 27 24 - 44 % 01/02/2017 5:44 AM [facility] MONOCYTES 8 2 - 10 % 01/02/2017 5:44 AM [facility] EOSINOPHILS 7 0 - 7 % 01/02/2017 5:44 AM [facility] BASOPHILS 1 0 - 1 % 01/02/2017 5:44 AM [facility] IMMATURE GRANULOCYTES 1 0 - 2 % 01/02/2017 5:44 AM CDT [facility] NEUTROPHIL ABSOLUTE 5.79 2.00 - 8.00 K/uL 01/02/2017 5:44 AM CDT [facility] LYMPHOCYTE ABSOLUTE 2.78 1.20 - 4.00 K/uL 01/02/2017 5:44 AM CDT [facility] MONOCYTE ABSOLUTE 0.85(H) 0.10 - 0.60 K/uL 01/02/2017 5:44 AM CDT [facility] EOSINOPHIL ABSOLUTE 0.76(H) 0.00 - 0.70 K/uL 01/02/2017 5:44 AM CDT [facility] BASOPHILS ABSOLUTE 0.10 0.00 - 0.20 K/uL 01/02/2017 5:44 AM CDT [facility] IMMATURE GRANULOCYTES ABSOLUTE 0.09 0.00 - 0.10 K/uL 01/02/2017 5:44 AM CDT [facility] Blood 01/02/2017 3:00 AM CDT 01/02/2017 5:35 AM CDT us Izabela Diamond MD HEMATOLOGY ORDERABLES Final Re sult [facility] CLIA# [id number] [facility] [place] [address] documented in this encounter Visit Diagnoses Not on filedocumented in this encounter Care Teams Home Hospice Aide Relationship Specialty Start Date End Date Shravan Jones DO [address] [address] PCP - General Family Practice 12/04/16 documented as of this encounter
--- OUTSIDE RECORDS SUMMARY | 2025-02-22 04:58 | XMS_ITS | Encounter Summary ---
Author Organization [facility] Address [address] [place] [address] Care Team Providers Care Boat Person Name Role Phone Shravan Jones DO Primary Care Provider Encounter Details Date Type Department Care Team (Late st Contact Info) Description 12/28/2016 Lab Requisition [facility] Laboratory Services [address] [address] [place] [address] David Ortega MD [address] [place] [address] Social History Tobacco Use Types Packs/Day Years Used Date Smoking Tobacco: Every Day Cigarettes Comments:pt lethargic Comments Unknown Sex and Gender Information Value Date Recorded Sex Assigned at Not on file 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 Gender Identity Not on file Sexual Orientation [...] - 4.9 mg/dL 12/28/2016 5:42 AM CDT [facility] Blood Collection / Unknown 12/28/2016 2:39 AM CDT 12/28/2016 5:01 AM CDT David Ortega MD CHEMISTRY ORDERABLES Final Res ult Performing Organization Address [facility] Co de Phone Number [facility] CLIA# [id number] [address] [place] [address] [id number] * MAGNESIUM LEVEL (12/28/2016 2:39 AM CDT) [facility] MAGNESIUM 1.6 1.6 - 2.6 mg/dL 12/28/2016 5:42 AM CDT [facility] Blood Collection / Unknown 12/28/2016 2:39 AM CDT 12/28/2016 5:01 AM CDT Narrative [facility] - 12/28/2016 5:42 AM CDT Due to Textile Coating Machine Operator update, MG+ reference range has changed from 1.8 - 2.4 mg/dL to the new reference range of 1.6 - 2.6 mg/dL. This will have limited patient impact. David Ortega MD CHEMISTRY ORDERABLES Final Res ult Performing Organization Address [facility] Co de Phone Number [facility] CLIA# [id number] [address] [place] [address] * PROTIME-INR (12/28/2016 2:39 AM CDT) [facility] PROTIME 15.0 12.3 - 15.5 Seconds 12/28/2016 5:16 AM CDT [facility] INR 1.1 0.8 - 1.2 12/28/2016 5:16 AM CDT [facility] Blood Collection / Unknown 12/28/2016 2:39 AM CDT 12/28/2016 5:01 AM CDT [place] [facility] - 12/28/2016 5:16 AM CDT Expected Values for INR: DVT/PE Goal INR 2.5; range 2.0 - 3.0 Valve Replacement Tissue Goal INR 2.5; range 2.0 - 3.0 Valve Replacement Mechanical Goal INR 3.0; range 2.5 - 3.5 POST-ID Goal INR 2.5; range 2.0 - 3.0 or Goal INR 3.0; range 2.5 - 3.5 Atrial Fibrillation Goal INR 2.5; range 2.0 - 3.0 Ischemic Stroke Goal INR 2.5; range 2.0 - 3.0 For additional information see Guidelines for Anticoagulation available from the pharmacy Wendy Vargas Pharm D. David Ortega MD HEMATOLOGY ORDERABLES Final Re sult [facility] CLIA# [id number] [address] [place] [address] * (ABNORMAL) PTT (12/28/2016 2:39 AM CDT) PTT 39.1(H) 24.8 - 38.8 seconds 12/28/2016 5:16 AM CDT [facility] Blood Collection / Unknown 12/28/2016 2:39 AM CDT 12/28/2016 5:01 AM CDT [place] [facility] - 12/28/2016 5:16 AM CDT Therapeutic Range: Hi-level PE/DVT heparin protocol 80.1 - 95.0 sec Lo-level PE/DVT heparin protocol 70.1 - 85.0 sec Cardiac Heparin Protocol 70.1 - 100.0 sec David Ortega MD HEMATOLOGY ORDERABLES Final Re sult [facility] CLIA# [id number] [facility] [place] [address] * (ABNORMAL) CBC WITH DIFFERENTIAL (12/28/2016 2:39 AM CDT) Pathologist [facility] WBC 11.0 4.5 - 11.0 K/uL 12/28/2016 5:09 AM CDT [facility] RBC 3.80(L) 4.20 - 5.40 M/uL 12/28/2016 5:09 AM CDT [facility] HEMOGLOBIN 9.3(L) 12.0 - 16.0 g/dL 12/28/2016 [facility] 30.6(L) 36.0 - 46.0 % 12/28/2016 5:09 AM CDT [facility] MCV 80.5(L) 84.0 - 103.0 fL 12/28/2016 5:09 AM CDT [facility] MCH 24.5(L) 27.0 - 34.0 pg 12/28/2016 5:09 AM CDT [facility] MCHC 30.4 30.0 - 35.0 g/dL 12/28/2016 5:09 AM CDT [facility] RDW 17.3(H) 11.0 - 14.5 % 12/28/2016 5:09 AM T [facility] RDW-STDEV 51.8 37.0 - 54.0 fL 12/28/2016 5:09 AM CDT [facility] PLATELETS 757(H) 140 - 440 K/uL 12/28/2016 5:09 AM CDT [facility] MPV 8.9 8.9 - 12.8 fL 12/28/2016 5:09 AM CDT [facility] NEUTROPHILS 65 42 - 75 % 12/28/2016 5:09 AM CDT [facility] LYMPHOCYTES 19(L) 24 - 44 % 12/28/2016 5:09 AM CDT [facility] MONOCYTES 10 2 - 10 % 12/28/2016 5:09 AM CDT [facility] EOSINOPHILS 5 0 - 7 % 12/28/2016 5:09 AM CDT [facility] BASOPHILS 1 0 - 1 % 12/28/2016 5:09 AM CDT [facility] IMMATURE GRANULOCYTES 1 0 - 2 % 12/28/2016 5:09 AM CDT [facility] NEUTROPHIL ABSOLUTE 7.19 2.00 - 8.00 K/uL 12/28/2016 5:09 AM CDT [facility] LYMPHOCYTE ABSOLUTE 2.04 1.20 - 4.00 K/uL 12/28/2016 5:09 AM CDT [facility] MONOCYTE ABSOLUTE 1.06(H) 0.10 - 0.60 K/uL 12/28/2016 5:09 AM CDT [facility] EOSINOPHIL ABSOLUTE 0.60 0.00 - 0.70 K/uL 12/28/2016 5:09 AM CDT [facility] BASOPHILS ABSOLUTE 0.07 0.00 - 0.20 K/uL 12/28/2016 5:09 AM CDT [facility] IMMATURE GRANULOCYTES ABSOLUTE 0.07 0.00 - 0.10 K/uL 12/28/2016 5:09 AM T [facility] Blood Collection / Unknown 12/28/2016 2:39 AM CDT 12/28/2016 5:01 AM CDT us David Ortega MD HEMATOLOGY ORDERABLES Final Re sult [facility] CLIA# [id number] [address] [place] [address] * (ABNORMAL) COMPREHENSIVE METABOLIC PANEL (12/28/2016 2:39 AM CDT) SODIUM 143 136 - 145 mmol/L 12/28/2016 5:47 AM CDT [facility] POTASSIUM 3.3(L) 3.5 - 5.1 mmol/L 12/28/2016 5:47 AM [facility] CHLORIDE 103 98 - 107 mmol/L 12/28/2016 5:47 AM [facility] CO2 29 21 - 32 mmol/L 12/28/2016 5:47 AM [facility] CALCIUM 8.9 8.4 - 10.1 mg/dL 12/28/2016 5:47 AM [facility] BUN 13 7 - 17 mg/dL 12/28/2016 5:47 AM [facility] CREATININE 0.70 0.55 - 1.02 mg/dL 12/28/2016 5:47 AM [facility] GLUCOSE 46(LL) 74 - 106 mg/dL 12/28/2016 5:47 AM [facility] TOTAL PROTEIN 8.2 6.4 - 8.2 g/dL 12/28/2016 5:47 AM [facility] ALBUMIN 1.8(L) 3.4 - 5.0 g/dL 12/28/2016 5:47 AM [facility] BILIRUBIN TOTAL 0.2 0.2 - 1.0 mg/dL 12/28/2016 5:47 AM [facility] ALKALINE PHOSPHATASE 93 25 - 100 U/L 12/28/2016 5:47 AM [facility] AST 18 15 - 37 U/L 12/28/2016 5:47 AM [facility] ALT 18 13 - 61 U/L 12/28/2016 5:47 AM [facility] GFR >60 >=60 mL/min/1.7 3 sq meter 12/28/2016 5:47 AM [facility] Comment: eGFR has not been validated [...] 3 sq meter 12/28/2016 5:47 AM CDT [facility] ANION GAP 11 4 - 30 mmol/L 12/28/2016 5:47 AM CDT [facility] Blood Collection / Unknown 12/28/2016 2:39 AM CDT 12/28/2016 5:01 AM CDT us David Ortega MD CHEMISTRY ORDERABLES Final Res ult [facility] CLIA# [id number] [address] [place] [address] documented in this encounter Visit Diagnoses Not on filedocumented in this encounter Care Teams Boat Person Relationship Specialty Start Date End Date Shravan Jones DO [address] [address] PCP - General Family Practice 12/04/16 documented as of this encounter
--- OUTSIDE RECORDS SUMMARY | 2025-02-22 04:58 | XMS_ITS | Encounter Summary ---
Author Organization [facility] Address [address] [place] [address] Care Team Providers Care Network Systems Administrator Name Role Phone Shravan Jones DO Primary Care Provider [phone] Encounter Details Date Type Department Care Team (Late st Contact Info) Description 01/07/2017 Lab Requisition [facility] Laboratory Services [address] [place] [address] [place] [address] David Ortega MD [address] [place] [address] Social History Tobacco Use Types Packs/Day Years Used Date Smoking Tobacco: Every Day Cigarettes Comments:pt lethargic Comments Unknown Sex and Gender Information Value Date Recorded Sex Assigned at Not on file Legal Sex Female 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
--- OUTSIDE RECORDS SUMMARY | 2025-02-22 04:58 | XMS_ITS | Encounter Summary ---
Author Organization [facility] Address [address] [place] [address] Care Team Providers Care Kitchen Runner Name Role Phone Shravan Jones DO Primary Care Provider [phone] Reason for Visit * Reason Onset Date Comments Appointment Notification 11/05/2023 Encounter Details Date Type Department Care Team (Late st Contact Info) Description 11/05/2023 Telephone [facility] [address] [place] [address] Janell Beauchamp MD [address] [place] [address] Appointment Notification Social History Tobacco Use Types Packs/Day Years Used Date Smoking Tobacco: Every Day Comments:Quit smoking: pt le thargic Social Connections Answer Date Recorded In a typical week, how many times do you talk on the telephone with family, friends, or neighbors? Never 09/22/19 24 Frequency of Social Gatherings with Friends and Family Not on file 09/22/2023 Attends Religion Services Not on file 09/21 Active Member [...] on file Legal Sex Female 3:34 PM RADIOLOGIC TECHNOLOGIST CHIEF Gender Identity Not on file Sexual Orientation Not on file documented as of this encounter Miscellaneous Notes * Telephone Encounter - Patrica Barney - 11/05/2023 12:07 PM CDT Janell (Provider) MESSAGE Pt needs to cancel appt on 11/07 and would like to resched. For 11/25 as she has other appts in town that day. Please call pt to reschedule. [facility] [employer] Sales Ambassador: Patrica Barney documented in this encounter Plan of Treatment Upcoming Encounters Date Type Department Care Team (Late st Contact Info) Description 05/19/2025 9:30 AM RADIOLOGIC TECHNOLOGIST CHIEF Office [facility] [address] [phone] Abel Menon DO [address] [phone] documented as of this encounter Visit Diagnoses Not on filedocumented in this encounter Additional Health Concerns Infection Onset Date Last Indicated Resolved Time R/O C. diff 07/06/2024 07/06/2024 07/06/2024 8:35 AM RADIOLOGIC TECHNOLOGIST CHIEF documented as of this encounter Care Teams Kitchen Runner Relationship Specialty Start Date End Date Shravan Jones DO [address] [place] [phone] PCP - General Family Practice 12/04/16 documented as of this encounter
--- OUTSIDE RECORDS SUMMARY | 2025-02-22 04:58 | XMS_ITS | Encounter Summary ---
Author Organization [facility], [facility] Address [address] [place] [address] Phone Care Team Providers Care Wheelchair Van Driver Name Role Phone Alexis Garcia MD Primary Care Provider [phone] Encounter Details Date Type Department Care Team (Late st Contact Info) Description 12/29/2024 TCM in Dialysis Clinic [facility], [facility] [address] [place] [address] Yann Lozano NP [address] [place] [address] Social History Tobacco Use Types [...] CDT Patient: Donita Aguilar : 1985 C: [facility] Note Type: Dialysis TCM Service Date: 12/29/2024 The patient was seen for a yirk-tb-erly visit as part of Transitional Care Management services. Attending Elevator Constructor Hydraulic: MACHO JOHANSEN Dialysis Location: [facility] Schedule: Shift: 2 INTERACTIVE CONTACT This wfqo-wl-vscm visit occurred within 2 business days of the patient?s discharge. 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 [facility] Allergies Allergen: acetaminophen Reaction: Nausea/Vomiting TREATMENT MEDICATIONS [...] to follow with cardiology, pcp, pulmonology and parking attendant as noted on discharge. EDUCATION Education relevant [...] or secondary infection VISIT DIAGNOSES CPT Code 42445 - High complexity, seen within 7 days of discharge. I20.9 Angina pectoris (HCC) COMMENTS: Verified she has nitroglycerin on hand at home: reviewed appropriate usage. Instructed to call cardiology for follow up appointment K76.0 Fatty (change of) liver, not elsewhere classified COMMENTS: Newly dx on imaging. Per hospital records, has been referred to parking attendant. Monitor for liver dysfunction, assess for any needed support J18.9 Pneumonia, unspecified organism COMMENTS: Monitor for impaired perfusion, fever/chills, increased SOB. If symptoms present, send for CXray. 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 Left main has luminal irregularity with distal 10% stenosis. Cardiology recommended medical management. Negative for angina on assessment today Reviewed symptoms, usage of nitro: instructed to call cardiology for follow up appt. I2.322 Atherosclerosis of other coronary artery bypass graft(s) [...] on filedocumented in this encounter Care Teams Wheelchair Van Driver Relationship Specialty Start Date End Date Alexis Garcia MD [address] [place] [address] PCP - General Family Medicine 04/16/22 documented as of this encounter
--- OUTSIDE RECORDS SUMMARY | 2025-02-22 04:58 | XMS_ITS | Clinical Summary ---
Author Organization [facility] Address [address] [place] [address] Phone Care Team Providers Care Tripe Cooker Name Role Phone Shravan Jones DO Primary Care Provider [phone] Allergies No known active allergies Medications oxyCODONE-aceta [...] on file Legal Sex Female 4:38 AM [employer]AREHOUSE PICKER Gender Identity Not on file Sexual Orientation [...] 10/11/1999, 09/06/1999 Medical Devices Implanted Type Area Piano Regulator Device Identifier Shelf Expiration Date Model / Serial / Lot Max tracy Flour [id number] - [id number] Implanted:Qty: 2 on 12/17/2016 by Deandre Alan MD at [facility] Biological Left: Lung [employer] 09/19/2019 [id number] / / [id number] Control Implant Funmi Procedures Procedure Name Priority Date/Time Associated Diagnosis Comments HEMOGLOBIN A1C Routine 01/09/2017 2:52 AM CDT from Last 3 Months or Most Recently Relevant to Health Maintenance Results * (ABNORMAL) HEMOGLOBIN A1C (01/09/2017 2:52 AM CDT) HEMOGLOBIN A1C 8.9(H) 4.0 - 6.0 % 01/09/2017 1:31 PM CDT [facility] EST. AVG GLUCOSE, A1C 209 mg/dL 01/09/2017 1:31 PM CDT [facility] Blood 01/09/2017 2:52 AM CDT 01/09/2017 6:53 AM CDT Narrative [facility] - 01/09/2017 1:31 PM CDT Test performed on Rx[employer]vance[employer] instrumentation using HPLC methodology us Izabela Diamond MD CHEMISTRY ORDERABLES Final Res ult [facility] CLIA# [id number] [address] [place] [address] from Last 3 Months or Most Recently Relevant to Health [place] [address] [facility] MEDICAID Advance Directives For more information, please contact: [phone] * Full Code (Latest Code Status on File) Date Activated Date Inactivated Comments 12/17/2016 1:05 PM 12/27/2016 11:32 PM Care Teams Tripe Cooker Relationship Specialty Start Date End Date Shravan Jones DO [address] [address] PCP - General Family Practice 12/04/16
--- NOTE | 2025-02-22 05:25 | W.ED.SOB ---
Documented by User: Jak Larose, DO 02/26/25 18:09 HPI - SOB/Dyspnea General: Chief Complaint: Shortness of Breath/Dyspnea Stated Complaint: SOB Time Seen by Provider: 02/22/25 04:51 History of Present Illness: HPI Narrative: Patient is a 39-year-old female with end-stage renal disease (ESRD) on hemodialysis who presents with acute respiratory distress. Patient reports that she was feeling fine throughout most of Saturday, but began experiencing progressive shortness of breath around midnight. She required supplemental oxygen at home but states that even after her father turned on her oxygen machine, she still couldn't catch [her] breath. The patient denies fever or productive cough. She had her last dialysis session on Saturday (2 days ago) and was due for her next session tomorrow (Saturday). Patient reports that all her discomfort is localized to her chest. She has a history of COVID-19 infection in the past. Patient arrived via ambulance for evaluation of her acute respiratory symptoms. Related Data Home Medications ?Medication ?Instructions ?Recorded ?Confirmed clonidine HCl 0.1 mg tablet See Rx Instructions .Route 11/27/23 02/22/25 .COMPLEX PRN Blood Pressure gabapentin 100 mg capsule 300 mg PO TID 12/27/23 02/22/25 clopidogrel 75 mg tablet 75 mg PO DAILY 04/28/24 02/22/25 escitalopram oxalate 20 mg tablet 20 mg PO DAILY anxiety 02/14/25 02/22/25 folic acid 1 mg tablet 1 mg PO DAILY 02/14/25 02/22/25 hydralazine 25 mg tablet 12.5 mg PO BID 02/14/25 02/22/25 tizanidine 4 mg tablet 4 mg PO Q6H PRN Muscle Spasm 02/14/25 02/22/25 lisinopril 40 mg tablet 40 mg PO DAILY 02/22/25 02/22/25 nitroglycerin 0.4 mg sublingual See Rx Instructions .Route .COMPLEX 02/22/25 02/22/25 tablet Previous Rx's ?Medication ?Instructions ?Recorded blood-glucose sensor (Dexcom G6 #3 ea 06/12/22 Sensor device) blood-glucose transmitter (Dexcom #1 ea 06/12/22 G6 Transmitter device) blood-glucose,tank wagon driver,cont #1 ea 06/12/22 (Dexcom G6 Mechanical Artist) sevelamer carbonate 800 mg tablet 800 mg PO TID #90 tabs 09/16/23 aspirin 81 mg tablet,delayed 81 mg PO QAM 30 days #30 tabs 03/28/24 release atorvastatin 40 mg tablet 40 mg PO BEDTIME 30 days #30 tabs 03/28/24 AFO brace #1 ea 04/20/24 diabetic shoes with 3 inserts #1 ea 04/20/24 amlodipine 5 mg tablet 5 mg PO DAILY #30 tabs 09/30/24 bumetanide 1 mg tablet See Rx Instructions .Route 09/30/24 .COMPLEX #60 tabs insulin aspart U-100 100 unit/mL See Rx Instructions .Route 12/28/24 (3 mL) subcutaneous pen (Novolog .COMPLEX #15 mL FlexPen U-100 Insulin aspart) isosorbide mononitrate 30 mg 30 mg PO DAILY #30 tabs 02/26/25 tablet,extended release 24 hr Allergies Allergy/AdvReac Type Severity Reaction Status Date / Time acetaminophen AdvReac Mild ADR-Gastrointestinal Verified 02/22/25 04:56 Upset [facility] PFS: Medical History HTN (hypertension), benign Hyperkalemia Headache Accelerated hypertension Uncontrolled type 1 diabetes mellitus ESRD (end stage renal disease) Dialysis complication Hypoglycemia Hemodialysis catheter dysfunction Colitis End stage renal disease on dialysis COPD (chronic obstructive pulmonary disease) Diabetes mellitus Transaminitis Intractable nausea and vomiting Hyperlipidemia HTN (hypertension) CHF (congestive heart failure), NYHA class III Pulmonary hypertension CAD (coronary artery disease) Neurogenic bladder COVID-19 Tobacco dependence Drug abuse Anemia Community acquired pneumonia Esophagitis Long-term insulin use History of pancreatitis Celiac disease Recurrent UTI Non-alcoholic fatty liver disease Arnold-Chiari malformation Diabetic gastroparesis -continue Reglan Diabetic neuropathy associated with type 1 diabetes mellitus Headache, common migraine, intractable, with status migrainosus Pleural effusion 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 History of lung surgery -s/p LLL lobectomy secondary to cavitary pneumonia (2017) History of endoscopy History of cholecystectomy Family History Grandfather Diabetes Mother CAD (coronary artery disease) Diabetes Heart disease Hypertension Brother Acute lymphoblastic leukemia (ALL) in child Grandmother Thyroid disease Denies family history of Colon cancer Ovarian cancer Prostate cancer Hyperlipidemia Breast cancer Uterine cancer Stroke Social History Smoking and tobacco/nicotine status: former use of tobacco/nicotine Quit status (tobacco/nicotine): has quit using Former quit date comment: She previously smoked <1/2 PPD, quit July 2023. Second hand smoke exposure: Yes Alcohol intake: never Substance/Drug Use: current Household members: children Housing: House Marital status: Single Current occupational status: unemployed Physical Exam Const: GENERAL APPEARANCE: cooperative, in distress, anxious and ill appearing ORIENTATION/CONSCIOUSNESS: Yes awake, Yes oriented to person, Yes oriented to place and Yes oriented to time HENMT: COMMON NORMALS: normocephalic, atraumatic and Normal external nose present HEAD & SCALP: normocephalic and atraumatic FACE & SINUS: face symmetric NOSE: Normal external nose present Eye: COMMON NORMALS: Equal, round and reactive pupils present and EOMs intact bilaterally PUPIL: Yes Equal, round and reactive pupils present Neck/C-Spine: GENERAL: Yes trachea midline Chest: CHEST: Yes Symmetrical chest wall rise Resp: EFFORT & INSPECTION: Yes tachypneic and Yes labored AUSCULTATION: wheezes and diminished lung sounds Cardio: COMMON NORMALS: regular rate and regular rhythm RATE: regular rate RHYTHM: regular rhythm Extremity: GENERAL: No edema Neuro: JEET COMA SCALE: document GCS findings Iroquois coma scale eye opening: Spontaneous Jeet coma scale verbal response: Orientated [place]roquois coma scale motor response: Obey commands [place]roquois coma scale total score: 15 SENSORIUM/ORIENTATION: Yes oriented to person, Yes oriented to place and Yes oriented to time Course Vital Signs: Vital signs: Vital Signs Temperature 98.0 F 02/26/25 07:37 Pulse Rate 71 02/26/25 10:20 Respiratory Rate 13 02/26/25 09:13 Blood Pressure 125/71 02/26/25 10:20 Pulse Oximetry 97 02/26/25 10:20 Oxygen Delivery Me thod Room Air 02/25/25 15:42 Oxygen Flow Rate 2 02/24/25 08:15 MDM - SOB/Dyspnea Medical Decision Making Patient presents with shortness of breath and chest discomfort. She is hypertensive, systolic blood pressure 168. She is slightly tachycardic on arrival, but this improved with pain medication. Heart rate currently 70 sinus. She is on 2 L satting 100%. She is afebrile. Chest x-ray shows some mild pulmonary edema with cardiomegaly and a tiny left pleural effusion. Hemoglobin is stable at 8.5. Other laboratories pending. Blood gas pending. She is getting a DuoNeb treatment as well. She will be checked out at shift change to the oncoming physician. Lab Data 02/26/25 03:48 02/26/25 03:48 Labs/Radiology: Radiology Impressions Chest X-Ray 02/24/25 11:39 Impression: Negative chest. Laboratory Results WBC 7.86 10^3/uL (3.29-11.43) 02/22/25 05:05 RBC 2.69 10^6/uL (3.85-5.65) L 02/22/25 05:05 Hgb 8.50 g/dL (11.27-16.99) L 02/22/25 05:05 Hct 26.6 % (36-47) L 02/22/25 05:05 MCV 98.9 fl (85-98) H 02/22/25 05:05 MCH 31.6 pg (27-33) 02/22/25 05:05 MCHC 32.0 g/dL (30-55) 02/22/25 05:05 RDW 14.8 % (12.1-15.1) 02/22/25 05:05 Plt Count 119 10^3/cmm (157-399) L 02/22/25 05:05 MPV 10.1 fL (7.4-10.4) 02/22/25 05:05 Neut % (Auto) 62.8 % 02/22/25 05:05 Lymph % (Auto) 22.3 % 02/22/25 05:05 Kershaw % (Auto) 8.7 % 02/22/25 05:05 Eos % (Auto) 5.1 % 02/22/25 05:05 Baso % (Auto) 0.8 % 02/22/25 05:05 Neut # (Auto) 4.95 10^3/uL (1.8-7.7) 02/22/25 05:05 Lymph # (Auto) 1.8 10^3/uL (0.8-4.8) 02/22/25 05:05 Kershaw # (Auto) 0.7 10^3/uL (0.2-0.9) 02/22/25 05:05 Eos # (Auto) 0.4 10^3/uL (0.0-0.8) 02/22/25 05:05 Baso # (Auto) 0.1 10^3/uL (0.0-0.1) 02/22/25 05:05 Nucleated RBC % (auto) 0 % 02/22/25 05:05 Nucleated RBCs # 0.0 /100WBC 02/22/25 05:05 Sodium 138 mmol/L (136-145) 02/22/25 05:05 Potassium 5.8 mmol/L (3.5-5.1) H 02/22/25 05:05 Chloride 98 mmol/L (98-107) 02/22/25 05:05 Carbon Dioxide 27 mmol/L (22-29) 02/22/25 05:05 Anion Gap 18.8 (5-19) 02/22/25 05:05 BUN 33 mg/dL (6-20) H 02/22/25 05:05 Creatinine 5.0 mg/dL (0.5-0.9) H 02/22/25 05:05 GFR Calculation 9.7 mL/min (90-130) L 02/22/25 05:05 Glucose 159 mg/dL (65-115) H 02/22/25 05:05 POC Glucose 176 mg/dL (70-110) H 02/22/25 06:21 Calculated Osmolality 297 mOsm/kg (285-295) H 02/22/25 05:05 Calcium 8.4 mg/dL (8.5-10.5) L 02/22/25 05:05 Phosphorus 4.5 mg/dL (2.5-4.5) 02/22/25 05:05 Magnesium 2.1 mg/dL (1.7-2.3) 02/22/25 05:05 Total Bilirubin 0.3 mg/dL (0.15-1.2) 02/22/25 05:05 AST 14 U/L (0-32) 02/22/25 05:05 ALT 18 U/L (0-33) 02/22/25 05:05 Alkaline Phosphatase 173 U/L (35-105) H 02/22/25 05:05 Troponin T Baseline 168 ng/L (0-10) H* 02/22/25 05:05 Troponin T 120 Minute 174.5 ng/L (0-10) H 02/22/25 06:38 Delta Troponin T 6.5 ABS# (0-10) 02/22/25 06:38 Total Protein 7.0 g/dL (6.6-8.7) 02/22/25 05:05 Albumin 3.5 g/dL (3.5-5.2) 02/22/25 05:05 Globulin 3.5 g/dL (1.3-4.6) 02/22/25 05:05 Adenovirus (PCR) Not detected (NOT DETECT) 02/22/25 05:39 C. pneumoniae DNA (PCR) Not detected (NOT DETECT) 02/22/25 05:39 Coronavirus 229E (PCR) Not detected (NOT DETECT) 02/22/25 05:39 Human Metapneumovir PCR Not detected (NOT DETECT) 02/22/25 05:39 Influenza A (H1) PCR Not detected (NOT DETECT) 02/22/25 05:39 Influ A (H1/09) PCR Not detected (NOT DETECT) 02/22/25 05:39 Influenza A (H3) PCR Not detected (NOT DETECT) 02/22/25 05:39 Influenza Type A (PCR) Not detected (NOT DETECT) 02/22/25 05:39 Influenza Type B (PCR) Not detected (NOT DETECT) 02/22/25 05:39 M. pneumoniae (PCR) Not detected (NOT DETECT) 02/22/25 05:39 Parainfluenza 1 (PCR) Not detected (NOT DETECT) 02/22/25 05:39 Parainfluenza 2 (PCR) Not detected (NOT DETECT) 02/22/25 05:39 Parainfluenza 3 (PCR) Not detected (NOT DETECT) 02/22/25 05:39 Parainfluenza 4 (PCR) Not detected (NOT DETECT) 02/22/25 05:39 RSV Type A (PCR) Not detected (NOT DETECT) 02/22/25 05:39 RSV Type B (PCR) Not detected (NOT DETECT) 02/22/25 05:39 Entero/Rhino (PCR) Not detected (NOT DETECT) 02/22/25 05:39 SARS-CoV-2 (PCR) Not detected (NOT DETECT) 02/22/25 05:39 Discharge Plan Discharge Patient Disposition: Admitted As Inpatient Admit Provider: Ana Luisa Casper Clinical Impression: End stage renal disease on dialysis, Hyperkalemia, Shortness of breath Condition: Stable Discharge Diet: Cardiac and Diabetic Discharge Activity: Resume usual activity Coding Level of Care Code ED Die Mounter for Chg Fwd Documented by User: Ronny Ayala MD 02/22/25 06:31 HPI - SOB/Dyspnea General: Chief Complaint: Shortness of Breath/Dyspnea Stated Complaint: SOB Time Seen by Provider: 02/22/25 04:51 Related Data Home Medications ?Medication ?Instructions ?Recorded ?Confirmed clonidine HCl 0.1 mg tablet See Rx Instructions .Route 11/27/23 02/22/25 .COMPLEX PRN Blood Pressure gabapentin 100 mg capsule 300 mg PO TID 12/27/23 02/22/25 clopidogrel 75 mg tablet 75 mg PO DAILY 04/28/24 02/22/25 escitalopram oxalate 20 mg tablet 20 mg PO DAILY anxiety 02/14/25 02/22/25 folic acid 1 mg tablet 1 mg PO DAILY 02/14/25 02/22/25 hydralazine 25 mg tablet 12.5 mg PO BID 02/14/25 02/22/25 tizanidine 4 mg tablet 4 mg PO Q6H PRN Muscle Spasm 02/14/25 02/22/25 lisinopril 40 mg tablet 40 mg PO DAILY 02/22/25 02/22/25 nitroglycerin 0.4 mg sublingual See Rx Instructions .Route .COMPLEX 02/22/25 02/22/25 tablet Previous Rx's ?Medication ?Instructions ?Recorded blood-glucose sensor ([employer]ence G6 #3 ea 06/12/22 Sensor device) blood-glucose transmitter (Dexcom #1 ea 06/12/22 G6 Transmitter device) blood-glucose,tank wagon driver,cont #1 ea 06/12/22 (Dexcom G6 Mechanical Artist) sevelamer carbonate 800 mg tablet 800 mg PO TID #90 tabs 09/16/23 aspirin 81 mg tablet,delayed 81 mg PO QAM 30 days #30 tabs 03/28/24 release atorvastatin 40 mg tablet 40 mg PO BEDTIME 30 days #30 tabs 03/28/24 AFO brace #1 ea 04/20/24 diabetic shoes with 3 inserts #1 ea 04/20/24 amlodipine 5 mg tablet 5 mg PO DAILY #30 tabs 09/30/24 bumetanide 1 mg tablet See Rx Instructions .Route 09/30/24 .COMPLEX #60 tabs insulin aspart U-100 100 unit/mL See Rx Instructions .Route 12/28/24 (3 mL) subcutaneous pen (Novolog .COMPLEX #15 mL FlexPen U-100 Insulin aspart) isosorbide mononitrate 30 mg 30 mg PO DAILY #30 tabs 02/26/25 tablet,extended release 24 hr Allergies Allergy/AdvReac Type Severity Reaction Status Date / Time acetaminophen AdvReac Mild ADR-Gastrointestinal Verified 02/22/25 04:56 Upset [facility] ED PFSH: Medical History HTN (hypertension), benign Hyperkalemia Headache Accelerated hypertension Uncontrolled type 1 diabetes mellitus ESRD (end stage renal disease) Dialysis complication Hypoglycemia Hemodialysis catheter dysfunction Colitis End stage renal disease on dialysis COPD (chronic obstructive pulmonary disease) Diabetes mellitus Transaminitis Intractable nausea and vomiting Hyperlipidemia HTN (hypertension) CHF (congestive heart failure), NYHA class III Pulmonary hypertension CAD (coronary artery disease) Neurogenic bladder COVID-19 Tobacco dependence Drug abuse Anemia Community acquired pneumonia Esophagitis Long-term insulin use History of pancreatitis Celiac disease Recurrent UTI Non-alcoholic fatty liver disease Arnold-Chiari malformation Diabetic gastroparesis -continue Reglan Diabetic neuropathy associated with type 1 diabetes mellitus Headache, common migraine, intractable, with status migrainosus Pleural effusion 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 History of lung surgery -s/p LLL lobectomy secondary to cavitary pneumonia (2017) History of endoscopy History of cholecystectomy Family History Grandfather Diabetes Mother CAD (coronary artery disease) Diabetes Heart disease Hypertension Brother Acute lymphoblastic leukemia (ALL) in child Grandmother Thyroid disease Denies family history of Colon cancer Ovarian cancer Prostate cancer Hyperlipidemia Breast cancer Uterine cancer Stroke Social History Smoking and tobacco/nicotine status: former use of tobacco/nicotine Quit status (tobacco/nicotine): has quit using Former quit date comment: She previously smoked <1/2 PPD, quit July 2023. Second hand smoke exposure: Yes Alcohol intake: never Substance/Drug Use: current Household members: children Housing: House Marital status: Single Current occupational status: unemployed Physical Exam Neuro: JEET COMA SCALE: document GCS findings [place]roquois coma scale total score: 15 Course Vital Signs: Vital signs: Vital Signs Temperature 98.0 F 02/26/25 07:37 Pulse Rate 71 02/26/25 10:20 Respiratory Rate 13 02/26/25 09:13 Blood Pressure 125/71 02/26/25 10:20 Pulse Oximetry 97 02/26/25 10:20 Oxygen Delivery Me thod Room Air 02/25/25 15:42 Oxygen Flow Rate 2 02/24/25 08:15 MDM - SOB/Dyspnea Medical Decision Making Patient presents with shortness of breath and chest discomfort. She is hypertensive, systolic blood pressure 168. She is slightly tachycardic on arrival, but this improved with pain medication. Heart rate currently 70 sinus. She is on 2 L satting 100%. She is afebrile. Chest x-ray shows some mild pulmonary edema with cardiomegaly and a tiny left pleural effusion. Hemoglobin is stable at 8.5. Other laboratories pending. Blood gas pending. She is getting a DuoNeb treatment as well. She will be checked out at shift change to the oncoming physician. Patient presents here with shortness of breath she is also hyperkalemic she still has some slight wheezing after breathing treatment spoke to hospitalist Dr. Carr and will admit Lab Data 02/26/25 03:48 02/26/25 03:48 Labs/Radiology: Radiology Impressions Chest X-Ray 02/24/25 11:39 Impression: Negative chest. Laboratory Results WBC 7.86 10^3/uL (3.29-11.43) 02/22/25 05:05 RBC 2.69 10^6/uL (3.85-5.65) L 02/22/25 05:05 Hgb 8.50 g/dL (11.27-16.99) L 02/22/25 05:05 Hct 26.6 % (36-47) L 02/22/25 05:05 MCV 98.9 fl (85-98) H 02/22/25 05:05 MCH 31.6 pg (27-33) 02/22/25 05:05 MCHC 32.0 g/dL (30-55) 02/22/25 05:05 RDW 14.8 % (12.1-15.1) 02/22/25 05:05 Plt Count 119 10^3/cmm (157-399) L 02/22/25 05:05 MPV 10.1 fL (7.4-10.4) 02/22/25 05:05 Neut % (Auto) 62.8 % 02/22/25 05:05 Lymph % (Auto) 22.3 % 02/22/25 05:05 Kershaw % (Auto) 8.7 % 02/22/25 05:05 Eos % (Auto) 5.1 % 02/22/25 05:05 Baso % (Auto) 0.8 % 02/22/25 05:05 Neut # (Auto) 4.95 10^3/uL (1.8-7.7) 02/22/25 05:05 Lymph # (Auto) 1.8 10^3/uL (0.8-4.8) 02/22/25 05:05 Kershaw # (Auto) 0.7 10^3/uL (0.2-0.9) 02/22/25 05:05 Eos # (Auto) 0.4 10^3/uL (0.0-0.8) 02/22/25 05:05 Baso # (Auto) 0.1 10^3/uL (0.0-0.1) 02/22/25 05:05 Nucleated RBC % (auto) 0 % 02/22/25 05:05 Nucleated RBCs # 0.0 /100WBC 02/22/25 05:05 Sodium 138 mmol/L (136-145) 02/22/25 05:05 Potassium 5.8 mmol/L (3.5-5.1) H 02/22/25 05:05 Chloride 98 mmol/L (98-107) 02/22/25 05:05 Carbon Dioxide 27 mmol/L (22-29) 02/22/25 05:05 Anion Gap 18.8 (5-19) 02/22/25 05:05 BUN 33 mg/dL (6-20) H 02/22/25 05:05 Creatinine 5.0 mg/dL (0.5-0.9) H 02/22/25 05:05 GFR Calculation 9.7 mL/min (90-130) L 02/22/25 05:05 Glucose 159 mg/dL (65-115) H 02/22/25 05:05 POC Glucose 176 mg/dL (70-110) H 02/22/25 06:21 Calculated Osmolality 297 mOsm/kg (285-295) H 02/22/25 05:05 Calcium 8.4 mg/dL (8.5-10.5) L 02/22/25 05:05 Phosphorus 4.5 mg/dL (2.5-4.5) 02/22/25 05:05 Magnesium 2.1 mg/dL (1.7-2.3) 02/22/25 05:05 Total Bilirubin 0.3 mg/dL (0.15-1.2) 02/22/25 05:05 AST 14 U/L (0-32) 02/22/25 05:05 ALT 18 U/L (0-33) 02/22/25 05:05 Alkaline Phosphatase 173 U/L (35-105) H 02/22/25 05:05 Troponin T Baseline 168 ng/L (0-10) H* 02/22/25 05:05 Troponin T 120 Minute 174.5 ng/L (0-10) H 02/22/25 06:38 Delta Troponin T 6.5 ABS# (0-10) 02/22/25 06:38 Total Protein 7.0 g/dL (6.6-8.7) 02/22/25 05:05 Albumin 3.5 g/dL (3.5-5.2) 02/22/25 05:05 Globulin 3.5 g/dL (1.3-4.6) 02/22/25 05:05 Adenovirus (PCR) Not detected (NOT DETECT) 02/22/25 05:39 C. pneumoniae DNA (PCR) Not detected (NOT DETECT) 02/22/25 05:39 Coronavirus 229E (PCR) Not detected (NOT DETECT) 02/22/25 05:39 Human Metapneumovir PCR Not detected (NOT DETECT) 02/22/25 05:39 Influenza A (H1) PCR Not detected (NOT DETECT) 02/22/25 05:39 Influ A (H1/09) PCR Not detected (NOT DETECT) 02/22/25 05:39 Influenza A (H3) PCR Not detected (NOT DETECT) 02/22/25 05:39 Influenza Type A (PCR) Not detected (NOT DETECT) 02/22/25 05:39 Influenza Type B (PCR) Not detected (NOT DETECT) 02/22/25 05:39 M. pneumoniae (PCR) Not detected (NOT DETECT) 02/22/25 05:39 Parainfluenza 1 (PCR) Not detected (NOT DETECT) 02/22/25 05:39 Parainfluenza 2 (PCR) Not detected (NOT DETECT) 02/22/25 05:39 Parainfluenza 3 (PCR) Not detected (NOT DETECT) 02/22/25 05:39 Parainfluenza 4 (PCR) Not detected (NOT DETECT) 02/22/25 05:39 RSV Type A (PCR) Not detected (NOT DETECT) 02/22/25 05:39 RSV Type B (PCR) Not detected (NOT DETECT) 02/22/25 05:39 Entero/Rhino (PCR) Not detected (NOT DETECT) 02/22/25 05:39 SARS-CoV-2 (PCR) Not detected (NOT DETECT) 02/22/25 05:39 All radiology interpretation(s) finalized by discharge Discharge Plan Discharge Patient Disposition: Admitted As Inpatient Admit Provider: Ana Luisa Casper Clinical Impression: End stage renal disease on dialysis, Hyperkalemia, Shortness of breath Condition: Stable Discharge Diet: Cardiac and Diabetic Discharge Activity: Resume usual activity Coding Level of Care Code ED Die Mounter for Chg Fwd Documented by User: Ana Luisa Casper MD 02/23/25 07:35 HPI - SOB/Dyspnea General: Chief Complaint: Shortness of Breath/Dyspnea Stated Complaint: SOB Time Seen by Provider: 02/22/25 04:51 Related Data Home Medications ?Medication ?Instructions ?Recorded ?Confirmed clonidine HCl 0.1 mg tablet See Rx Instructions .Route 11/27/23 02/22/25 .COMPLEX PRN Blood Pressure gabapentin 100 mg capsule 300 mg PO TID 12/27/23 02/22/25 clopidogrel 75 mg tablet 75 mg PO DAILY 04/28/24 02/22/25 escitalopram oxalate 20 mg tablet 20 mg PO DAILY anxiety 02/14/25 02/22/25 folic acid 1 mg tablet 1 mg PO DAILY 02/14/25 02/22/25 hydralazine 25 mg tablet 12.5 mg PO BID 02/14/25 02/22/25 tizanidine 4 mg tablet 4 mg PO Q6H PRN Muscle Spasm 02/14/25 02/22/25 lisinopril 40 mg tablet 40 mg PO DAILY 02/22/25 02/22/25 nitroglycerin 0.4 mg sublingual See Rx Instructions .Route .COMPLEX 02/22/25 02/22/25 tablet Previous Rx's ?Medication ?Instructions ?Recorded blood-glucose sensor (Dexcom G6 #3 ea 06/12/22 Sensor device) blood-glucose transmitter (Dexcom #1 ea 06/12/22 G6 Transmitter device) blood-glucose,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 wagon driver,cont #1 ea 06/12/22 (Dexcom G6 Mechanical Artist) sevelamer carbonate 800 mg tablet 800 mg PO TID #90 tabs 09/16/23 aspirin 81 mg tablet,delayed 81 mg PO QAM 30 days #30 tabs 03/28/24 release atorvastatin 40 mg tablet 40 mg PO BEDTIME 30 days #30 tabs 03/28/24 AFO brace #1 ea 04/20/24 diabetic shoes with 3 inserts #1 ea 04/20/24 amlodipine 5 mg tablet 5 mg PO DAILY #30 tabs 09/30/24 bumetanide 1 mg tablet See Rx Instructions .Route 09/30/24 .COMPLEX #60 tabs insulin aspart U-100 100 unit/mL See Rx Instructions .Route 12/28/24 (3 mL) subcutaneous pen (Novolog .COMPLEX #15 mL FlexPen U-100 Insulin aspart) isosorbide mononitrate 30 mg 30 mg PO DAILY #30 tabs 02/26/25 tablet,extended release 24 hr Allergies Allergy/AdvReac Type Severity Reaction Status Date / Time acetaminophen AdvReac Mild ADR-Gastrointestinal Verified 02/22/25 04:56 Upset [facility] PFSH: Medical History HTN (hypertension), benign Hyperkalemia Headache Accelerated hypertension Uncontrolled type 1 diabetes mellitus ESRD (end stage renal disease) Dialysis complication Hypoglycemia Hemodialysis catheter dysfunction Colitis End stage renal disease on dialysis COPD (chronic obstructive pulmonary disease) Diabetes mellitus Transaminitis Intractable nausea and vomiting Hyperlipidemia HTN (hypertension) CHF (congestive heart failure), NYHA class III Pulmonary hypertension CAD (coronary artery disease) Neurogenic bladder COVID-19 Tobacco dependence Drug abuse Anemia Community acquired pneumonia Esophagitis Long-term insulin use History of pancreatitis Celiac disease Recurrent UTI Non-alcoholic fatty liver disease Arnold-Chiari malformation Diabetic gastroparesis -continue Reglan Diabetic neuropathy associated with type 1 diabetes mellitus Headache, common migraine, intractable, with status migrainosus Pleural effusion 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 History of lung surgery -s/p LLL lobectomy secondary to cavitary pneumonia (2017) History of endoscopy History of cholecystectomy Family History Grandfather Diabetes Mother CAD (coronary artery disease) Diabetes Heart disease Hypertension Brother Acute lymphoblastic leukemia (ALL) in child Grandmother Thyroid disease Denies family history of Colon cancer Ovarian cancer Prostate cancer Hyperlipidemia Breast cancer Uterine cancer Stroke Social History Smoking and tobacco/nicotine status: former use of tobacco/nicotine Quit status (tobacco/nicotine): has quit using Former quit date comment: She previously smoked <1/2 PPD, quit July 2023. Second hand smoke exposure: Yes Alcohol intake: never Substance/Drug Use: current Household members: children Housing: House Marital status: Single Current occupational status: unemployed Physical Exam Neuro: JEET COMA SCALE: document GCS findings [place]quois coma scale total score: 15 Course Vital Signs: Vital signs: Vital Signs Temperature 98.0 F 02/26/25 07:37 Pulse Rate 71 02/26/25 10:20 Respiratory Rate 13 02/26/25 09:13 Blood Pressure 125/71 02/26/25 10:20 Pulse Oximetry 97 02/26/25 10:20 Oxygen Delivery Me thod Room Air 02/25/25 15:42 Oxygen Flow Rate 2 02/24/25 08:15 MDM - SOB/Dyspnea Lab Data 02/26/25 03:48 02/26/25 03:48 Labs/Radiology: Radiology Impressions Chest X-Ray 02/24/25 11:39 Impression: Negative chest. Laboratory Results WBC 7.86 10^3/uL (3.29-11.43) 02/22/25 05:05 RBC 2.69 10^6/uL (3.85-5.65) L 02/22/25 05:05 Hgb 8.50 g/dL (11.27-16.99) L 02/22/25 05:05 Hct 26.6 % (36-47) L 02/22/25 05:05 MCV 98.9 fl (85-98) H 02/22/25 05:05 MCH 31.6 pg (27-33) 02/22/25 05:05 MCHC 32.0 g/dL (30-55) 02/22/25 05:05 RDW 14.8 % (12.1-15.1) 02/22/25 05:05 Plt Count 119 10^3/cmm (157-399) L 02/22/25 05:05 MPV 10.1 fL (7.4-10.4) 02/22/25 05:05 Neut % (Auto) 62.8 % 02/22/25 05:05 Lymph % (Auto) 22.3 % 02/22/25 05:05 [place]haw % (Auto) 8.7 % 02/22/25 05:05 Eos % (Auto) 5.1 % 02/22/25 05:05 Baso % (Auto) 0.8 % 02/22/25 05:05 Neut # (Auto) 4.95 10^3/uL (1.8-7.7) 02/22/25 05:05 Lymph # (Auto) 1.8 10^3/uL (0.8-4.8) 02/22/25 05:05 [place] # (Auto) 0.7 10^3/uL (0.2-0.9) 02/22/25 05:05 Eos # (Auto) 0.4 10^3/uL (0.0-0.8) 02/22/25 05:05 Baso # (Auto) 0.1 10^3/uL (0.0-0.1) 02/22/25 05:05 Nucleated RBC % (auto) 0 % 02/22/25 05:05 Nucleated RBCs # 0.0 /100WBC 02/22/25 05:05 Sodium 138 mmol/L (136-145) 02/22/25 05:05 Potassium 5.8 mmol/L (3.5-5.1) H 02/22/25 05:05 Chloride 98 mmol/L (98-107) 02/22/25 05:05 Carbon Dioxide 27 mmol/L (22-29) 02/22/25 05:05 Anion Gap 18.8 (5-19) 02/22/25 05:05 BUN 33 mg/dL (6-20) H 02/22/25 05:05 Creatinine 5.0 mg/dL (0.5-0.9) H 02/22/25 05:05 GFR Calculation 9.7 mL/min (90-130) L 02/22/25 05:05 Glucose 159 mg/dL (65-115) H 02/22/25 05:05 POC Glucose 176 mg/dL (70-110) H 02/22/25 06:21 Calculated Osmolality 297 mOsm/kg (285-295) H 02/22/25 05:05 Calcium 8.4 mg/dL (8.5-10.5) L 02/22/25 05:05 Phosphorus 4.5 mg/dL (2.5-4.5) 02/22/25 05:05 Magnesium 2.1 mg/dL (1.7-2.3) 02/22/25 05:05 Total Bilirubin 0.3 mg/dL (0.15-1.2) 02/22/25 05:05 AST 14 U/L (0-32) 02/22/25 05:05 ALT 18 U/L (0-33) 02/22/25 05:05 Alkaline Phosphatase 173 U/L (35-105) H 02/22/25 05:05 Troponin T Baseline 168 ng/L (0-10) H* 02/22/25 05:05 Troponin T 120 Minute 174.5 ng/L (0-10) H 02/22/25 06:38 Delta Troponin T 6.5 ABS# (0-10) 02/22/25 06:38 Total Protein 7.0 g/dL (6.6-8.7) 02/22/25 05:05 Albumin 3.5 g/dL (3.5-5.2) 02/22/25 05:05 Globulin 3.5 g/dL (1.3-4.6) 02/22/25 05:05 Adenovirus (PCR) Not detected (NOT DETECT) 02/22/25 05:39 C. pneumoniae DNA (PCR) Not detected (NOT DETECT) 02/22/25 05:39 Coronavirus 229E (PCR) Not detected (NOT DETECT) 02/22/25 05:39 Human Metapneumovir PCR Not detected (NOT DETECT) 02/22/25 05:39 Influenza A (H1) PCR Not detected (NOT DETECT) 02/22/25 05:39 Influ A (H1/09) PCR Not detected (NOT DETECT) 02/22/25 05:39 Influenza A (H3) PCR Not detected (NOT DETECT) 02/22/25 05:39 Influenza Type A (PCR) Not detected (NOT DETECT) 02/22/25 05:39 Influenza Type B (PCR) Not detected (NOT DETECT) 02/22/25 05:39 M. pneumoniae (PCR) Not detected (NOT DETECT) 02/22/25 05:39 Parainfluenza 1 (PCR) Not detected (NOT DETECT) 02/22/25 05:39 Parainfluenza 2 (PCR) Not detected (NOT DETECT) 02/22/25 05:39 Parainfluenza 3 (PCR) Not detected (NOT DETECT) 02/22/25 05:39 Parainfluenza 4 (PCR) Not detected (NOT DETECT) 02/22/25 05:39 RSV Type A (PCR) Not detected (NOT DETECT) 02/22/25 05:39 RSV Type B (PCR) Not detected (NOT DETECT) 02/22/25 05:39 Entero/Rhino (PCR) Not detected (NOT DETECT) 02/22/25 05:39 SARS-CoV-2 (PCR) Not detected (NOT DETECT) 02/22/25 05:39 Discharge Plan Discharge Patient Disposition: Admitted As Inpatient Admit Provider: Ana Luisa Casper Clinical Impression: End stage renal disease on dialysis, Hyperkalemia, Shortness of breath Condition: Stable Discharge Diet: Cardiac and Diabetic Discharge Activity: Resume usual activity Coding Level of Care Code ED Die Mounter for Reji Chandler
[2025-02-22] MEDS: morphine 4 mg/mL SDV 1 mL IVP ×2 (05:33→21:01)
[2025-02-22 05:34] LABS: Hematocrit 26.6 % (36-47); Hemoglobin 8.50 g/dL (11.27-16.99); Mean Corpuscular HGB Conc 32.0 g/dL (30-55); Mean Corpuscular Hemoglobin 31.6 pg (27-33); Mean Corpuscular Volume 98.9 fl (85-98); Nucleated Red Blood Cells % 0 %; Platelet Count 119 10^3/cmm (157-399); Red Blood Count 2.69 10^6/uL (3.85-5.65); White Blood Count 7.86 10^3/uL (3.29-11.43)
[2025-02-22] MEDS: ondansetron 2 mg/ML SDV 2 mL 4 MG IVP (05:34)
[2025-02-22 05:55] LABS: Alanine Aminotransferase 18 U/L (0-33); Albumin Level 3.5 g/dL (3.5-5.2); Alkaline Phosphatase 173 U/L (35-105); Anion Gap 18.8 (5-19); Aspartate Amino Transferase 14 U/L (0-32); Blood Urea Nitrogen 33 mg/dL (6-20); Calcium 8.4 mg/dL (8.5-10.5); Carbon Dioxide 27 mmol/L (22-29); Chloride 98 mmol/L (98-107); Globulin 3.5 g/dL (1.3-4.6); Glucose 159 mg/dL (65-115); Magnesium 2.1 mg/dL (1.7-2.3); Osmolality Calculated 297 mOsm/kg (285-295); Potassium 5.8 mmol/L (3.5-5.1); Sodium 138 mmol/L (136-145); Total Protein 7.0 g/dL (6.6-8.7)
[2025-02-22 05:56] LABS: Creatinine Clr Calc Pharmacy 12.5175
[2025-02-22 06:03] LABS: Troponin(5th) Baseline 168 ng/L (0-10)
[2025-02-22] MEDS: insulin regular-human 100 units/1 mL 10 UNIT IVP (06:20)
[2025-02-22 07:09] LABS: Troponin 5 2HR Delta 6.5 ABS# (0-10)
[2025-02-22 07:20] LABS: Troponin 5 2HR 174.5 ng/L (0-10)
[2025-02-22 07:29] LABS: Coronavirus 229E,HKU1,NL63,OC4 Not Detected (NOT DETECT); Parainfluenza Virus Type 1 Not Detected (NOT DETECT); Parainfluenza Virus Type 2 Not Detected (NOT DETECT); Parainfluenza Virus Type 3 Not Detected (NOT DETECT); Parainfluenza Virus Type 4 Not Detected (NOT DETECT); SARS-COV-2 Not Detected (NOT DETECT)
--- NOTE | 2025-02-22 08:06 | PM.HP ---
Providers/Chief Complaint Admitting Physician: Ana Luisa Casper MD Primary Care Provider: SUZANNE Dias Chief Complaint: SOB History of Present Illness Donita Aguilar is a 39 year old female with end-stage renal disease on hemodialysis Saturday. She was just admitted about a week ago when dialysis unit was closed last Saturday. She had dialysis Saturday. And then stayed in the hospital until Saturday to resume her usual schedule. Patient was back in her usual state of health when suddenly last night around 2:30 in the morning patient had shortness of breath. Patient had an old oxygen take and placed this on. She also suffered with chest pain pressure in the mid sternum. Review of Systems Const: Denies: fever(s) or chills Eyes: Denies: change in vision ENMT: Denies: throat pain or nasal congestion Card: Reports: chest pain and edema; Denies: palpitations Resp: Reports: dyspnea; Denies: productive cough GI: Denies: abdominal pain, nausea, vomiting or change in stool character : Denies: dysuria Musc: Denies: back pain or extremity pain Skin/Breast: Denies: rash or lesions Neuro: Denies: headache(s) or dizziness Psych: Denies: anxiety or depression Ramiro/Lymph: Denies: easy bruising or easy bleeding Medications/Allergies Home Medications ?Medication ?Instructions ?Recorded ?Confirmed ?Last Taken ?Type blood-glucose sensor (Dexcom G6 #3 ea 06/12/22 02/14/25 Unknown Rx Sensor device) blood-glucose transmitter (Dexcom #1 ea 06/12/22 02/14/25 Unknown Rx G6 Transmitter device) blood-glucose,directional drill operator,cont #1 ea 06/12/22 02/14/25 Unknown Rx (Dexcom G6 Client Director) sevelamer carbonate 800 mg tablet 800 mg PO TID #90 tabs 09/16/23 02/14/25 02/13/25 Rx clonidine HCl 0.1 mg tablet See Rx Instructions .Route 11/27/23 02/14/25 Unknown History .COMPLEX PRN Blood Pressure gabapentin 100 mg capsule 100 mg PO TID 12/27/23 02/14/25 02/13/25 History aspirin 81 mg tablet,delayed 81 mg PO QAM 30 days #30 tabs 03/28/24 02/14/25 02/13/25 Rx release atorvastatin 40 mg tablet 40 mg PO BEDTIME 30 days #30 tabs 03/28/24 02/14/25 02/12/25 Rx AFO brace #1 ea 04/20/24 02/14/25 Unknown Rx diabetic shoes with 3 inserts #1 ea 04/20/24 02/14/25 Unknown Rx clopidogrel 75 mg tablet 75 mg PO DAILY 04/28/24 02/14/25 02/13/25 History amlodipine 5 mg tablet 5 mg PO DAILY #30 tabs 09/30/24 02/14/25 02/13/25 Rx bumetanide 1 mg tablet See Rx Instructions .Route 09/30/24 02/14/25 02/11/25 Rx .COMPLEX #60 tabs cyclobenzaprine 10 mg tablet 10 mg PO TID #14 tabs 11/10/24 02/14/25 Unknown Rx insulin aspart U-100 100 unit/mL See Rx Instructions .Route 12/28/24 02/14/25 02/13/25 Rx (3 mL) subcutaneous pen (Novolog .COMPLEX #15 mL FlexPen U-100 Insulin aspart) carvedilol 3.125 mg tablet 3.125 mg PO BID 02/14/25 02/14/25 02/13/25 History escitalopram oxalate 20 mg tablet 20 mg PO DAILY anxiety 02/14/25 02/14/25 02/13/25 History folic acid 1 mg tablet 1 mg PO DAILY 02/14/25 02/14/25 02/13/25 History hydralazine 25 mg tablet 12.5 mg PO BID 02/14/25 02/14/25 02/13/25 History losartan 50 mg tablet 100 mg PO DAILY 02/14/25 02/14/25 02/13/25 History nifedipine 90 mg tablet,extended 90 mg PO DAILY 02/14/25 02/14/25 Unknown History release tizanidine 4 mg tablet See Rx Instructions .Route .COMPLEX 02/14/25 02/14/25 Unknown History Allergies Allergy/AdvReac Type Severity Reaction Status Date / Time acetaminophen AdvReac Mild ADR-Gastrointestinal Verified 02/22/25 04:56 Upset PFSH Acute PFSH: Medical History HTN (hypertension), benign Hyperkalemia Headache Accelerated hypertension Uncontrolled type 1 diabetes mellitus ESRD (end stage renal disease) Dialysis complication Hypoglycemia Hemodialysis catheter dysfunction Colitis End stage renal disease on dialysis COPD (chronic obstructive pulmonary disease) Diabetes mellitus Transaminitis Intractable nausea and vomiting Hyperlipidemia HTN (hypertension) CHF (congestive heart failure), NYHA class III Pulmonary hypertension CAD (coronary artery disease) Neurogenic bladder COVID-19 Tobacco dependence Drug abuse Anemia Community acquired pneumonia Esophagitis Long-term insulin use History of pancreatitis Celiac disease Recurrent UTI Non-alcoholic fatty liver disease Arnold-Chiari malformation Diabetic gastroparesis -continue Reglan Diabetic neuropathy associated with type 1 diabetes mellitus Headache, common migraine, intractable, with status migrainosus Pleural effusion 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 History of lung surgery -s/p LLL lobectomy secondary to cavitary pneumonia (2016) History of endoscopy History of cholecystectomy Family History Grandfather Diabetes Mother CAD (coronary artery disease) Diabetes Heart disease Hypertension Brother Acute lymphoblastic leukemia (ALL) in child Grandmother Thyroid disease Denies family history of Colon cancer Ovarian cancer Prostate cancer Hyperlipidemia Breast cancer Uterine cancer Stroke Social History Smoking and tobacco/nicotine status: former use of tobacco/nicotine Quit status (tobacco/nicotine): has quit using Former quit date comment: She previously smoked <1/2 PPD, quit July 2023. Second hand smoke exposure: Yes Alcohol intake: never Substance/Drug Use: current Household members: children Housing: House Marital status: Single Current occupational status: unemployed Vitals/I&O/Wt Last Vital Signs Temp 98.4 F 02/22/25 04:51 Pulse 90 02/22/25 06:40 Resp 15 02/22/25 06:40 BP 157/88 02/22/25 06:40 Pulse Ox 97 02/22/25 06:40 O2 Del Method Room Air 02/22/25 06:40 O2 Flow Rate 1 02/22/25 06:15 02/21/25 02/22/2502/22/25 22:59 06:59 14:59 Intake Total 0 / 0 Balance 0 / 0 Weight last 48 hrs Weight 61.689 kg Physical Exam Narrative: 39-year-old white female in mild distress at time of exam. She also appears quite anxious. Neuro alert and oriented to person place time and situation exam is nonfocal HEENT head is normocephalic atraumatic pupils equal round and reactive to light and accommodation extraocular muscles are intact there is no scleral icterus mucous membranes are moist and pink without lesions or exudate neck is supple no JVD carotid bruits or lymphadenopathy Heart is regular normal S1-S2 without murmurs clicks gallops or rubs Lungs are clear to auscultation without wheezes rales or rhonchi Abdomen is mildly obese soft tenderness in the epigastrium normal active bowel sounds no rebound rigidity or guarding Extremities mild pitting and overall nonpitting edema patient looks puffy Psych mood and affect are appropriate for condition Skin patient has multiple scratches and spots on her legs and arms. No signs of infection Back no significant kyphosis or scoliosis noted Data 02/22/25 05:05 02/22/25 05:05 Other Labs: 1st and 2nd troponin are elevated without a delta. This is most likely due to end-stage renal disease EKG 1: My Interpretation: Normal sinus rhythm with a rate of 69 I do not assess any significant ST depression VT interval is normal QRS interval is normal EKG computer-generated impression: SINUS RHYTHM MODERATE ST DEPRESSION A&P Assessment and plan 1. Shortness of breath: 2. Hyperkalemia: 3. Chest pain: 4. End stage renal disease on dialysis: 5. Diastolic heart failure secondary to hypertension: 6. 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 Primary hypertension: Plan: Assessment: Progressive shortness of breath with associated chest pain in a patient with end-stage renal disease who appears volume overloaded likely needs additional dialysis with further ultrafiltration to remove fluid. She was given insulin in the ER for her potassium although it was not over 6. Will feed and give orange juice as needed orders are in to include D50 in the usual management of hypoglycemia I left a message with our nephrology telemedicine team for stat consult. I have not heard back quite yet Oxygen nebs for shortness of breath Patient has a recent echo on 12/26/2024 that showed grade 2 out of 4 diastolic dysfunction. Her EF was normal. If she is able to urinate I can attempt high dose diuretic. PDMP PDMP Reviewed: Not Reviewed Attestations Medical Necessity Statement*: Patient with acute respiratory failure with shortness of breath requiring urgent dialysis. Patient stay is likely to cross 2 midnights Coding Level of Care Code Acute Code for Chg Fwd Diagnoses Shortness of breath R06.02 Hyperkalemia E87.5 Chest pain R07.9 End stage renal disease on dialysis N18.6; Z99.2 Diastolic heart failure secondary to hypertension I11.0; I50.30 Type 1 diabetes mellitus with other circulatory complication E10.59 Primary hypertension I10
[2025-02-22 08:07] LABS: ABG PCO2 45.5 mmHg (35-45); ABG PH Result 7.39 (7.35-7.45); Arterial Blood Gas Hematocrit 29.6 % (37-47); Blood Gas Operator Identificat glc; Blood Gas Sample Site Brachial, right; Blood Gas Sample Type Arterial; HCO3 ABG 27.2 mmol/L (22-26); PO2 ABG 70.4 mmHg (80.0-100.0); PO2 FiO2 Ratio Arterial Blood 335
--- NOTE | 2025-02-22 09:09 | P.CONIM_ITS ---
Providers/Reason For Consult 2 Consulting Physician/Specialty*: kommana/Nephrology Reason for Consult*: ESRD Attending Physician: Terrence Mckeon DO Primary Care Provider: SUZANNE Dias History of Present Illness History of Present Illness Donita Aguilar is a 39 year old female Patient is a 39-year-old female with past medical history of end-stage renal disease on dialysis, on TTS schedule, diabetes, hypertension, coronary artery disease presented to the emergency department due to Chest pain. Labs reviewed . Review of Systems 2 Narrative: negative Medications/Allergies Home Medications ?Medication ?Instructions ?Recorded ?Confirmed ?Last Taken ?Type blood-glucose sensor (Dexcom G6 #3 ea 06/12/22 5 Unknown Rx Sensor device) blood-glucose transmitter (Dexcom #1 ea 06/12/2202/22 Unknown Rx G6 Transmitter device) blood-glucose,vice president planning,cont #1 ea 06/12/22 02/22/25 Un known Rx (Dexcom G6 Adaptive Physical Education Teacher) sevelamer carbonate 800 mg tablet 800 mg PO TID #90 ta bs 09/16/23 02/22/25 02/21/25 Rx clonidine HCl 0.1 mg tablet See Rx Instructions .Route 11/27/23 02/22/25 Unknown History .COMPLEX PRN Blood Pressure gabapentin 100 mg capsule 300 mg PO TID 12/27/2302/2202/21/25 History aspirin 81 mg tablet,delayed 81 mg PO QAM 30 days #30 tabs 03/28/24 02/22/25 02/21/25 Rx release atorvastatin 40 mg tablet 40 mg PO BEDTIME 30 days #30 tabs 03/28/24 02/22/25 02/21/25 Rx AFO brace #1 ea 04/20/24 02/22/25 Unkn own Rx diabetic shoes with 3 inserts #1 ea 04/20/24 02/22/25 Unknown Rx clopidogrel 75 mg tablet 75 mg PO DAILY 04/28/2407/1802/21/25 History amlodipine 5 mg tablet 5 mg PO DAILY #30 tabs 09/3002/22/25 02/21/25 Rx bumetanide 1 mg tablet See Rx Instructions .Route 0 09/30/24 02/22/25 02/21/25 Rx .COMPLEX #60 tabs insulin aspart U-100 100 unit/mL See Rx Instructions . Route 12/28/24 02/22/25 02/21/25 Rx (3 mL) subcutaneous pen (Novolog .COMPLEX #15 mL FlexPen U-100 Insulin aspart) escitalopram oxalate 20 mg tablet 20 mg PO DAILY anxie ty 02/14/25 02/22/25 02/21/25 History folic acid 1 mg tablet 1 mg PO DAILY 02/14/2502/2202/21/25 History hydralazine 25 mg tablet 12.5 mg PO BID 02/14/25/0 07/1802/21/25 History nifedipine 90 mg tablet,extended 90 mg PO DAILY 02/22/25 Unknown History release tizanidine 4 mg tablet 4 mg PO Q6H PRN Muscle Spasm 02/14/25 02/22/25 Unknown History lisinopril 40 mg tablet 40 mg PO DAILY 02/22/250 07/1802/21/25 History nitroglycerin 0.4 mg sublingual See Rx Instructions .R oute .COMPLEX 02/22/25 02/22/25 Unknown History tablet Allergies Allergy/AdvReac Type Severity Reaction Status Date / Time acetaminophen AdvReac Mild ADR-Gastrointestinal Verified 02/22/25 04:56 Upset PFSH Acute 2 PFSH: Medical History (Updated 02/22/25 @ 08:16 by Terrence Mckeon DO) Chest pain Diabetes mellitus HTN (hypertension) HTN (hypertension), benign Hyperkalemia Headache Accelerated hypertension Uncontrolled type 1 diabetes mellitus ESRD (end stage renal disease) Dialysis complication Hypoglycemia Hemodialysis catheter dysfunction Colitis End stage renal disease on dialysis COPD (chronic obstructive pulmonary disease) Transaminitis Intractable nausea and vomiting Hyperlipidemia CHF (congestive heart failure), NYHA class III Pulmonary hypertension CAD (coronary artery disease) Neurogenic bladder COVID-19 Tobacco dependence Drug abuse Anemia Community acquired pneumonia Esophagitis Long-term insulin use History of pancreatitis Celiac disease Recurrent UTI Non-alcoholic fatty liver disease Arnold-Chiari malformation Diabetic gastroparesis -continue Reglan Diabetic neuropathy associated with type 1 diabetes mellitus Headache, common migraine, intractable, with status migrainosus Pleural effusion 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 History of lung surgery -s/p LLL lobectomy secondary to cavitary pneumonia (2017) History of endoscopy History of cholecystectomy Family History Grandfather Diabetes Mother CAD (coronary artery disease) Diabetes Heart disease Hypertension Brother Acute lymphoblastic leukemia (ALL) in child Grandmother Thyroid disease Denies family history of Colon cancer Ovarian cancer Prostate cancer Hyperlipidemia Breast cancer Uterine cancer Stroke Social History Smoking and tobacco/nicotine status: former use of tobacco/nicotine Quit status (tobacco/nicotine): has quit using Former quit date comment: She previously smoked <1/2 PPD, quit July 2023. Second hand smoke exposure: Yes Alcohol intake: never Substance/Drug Use: current Household members: children Housing: House Marital status: Single Current occupational status: unemployed Vitals/I&O/Wt Last Vital Signs Temp 97.6 F 02/22/25 08:00 Pulse 87 02/22/25 08:00 Resp 16 02/22/25 08:00 BP 159/78 02/22/25 08:00 Pulse Ox 98 02/22/25 08:00 O2 Del Method Room Air 02/22/25 08:00 O2 Flow Rate 1 02/22/25 06:15 02/21/25 02/22/25 02/22/25 22:59 06:59 14:59 Intake Total 0 / 0 Balance 0 / 0 Weight last 48 hrs Weight 71.668 kg Weight 61.689 kg Physical Exam 2 Narrative: awake , alert , no distress PEERLA , No JVD S1S2 RRR per report Lungs with decreased BS ABd soft , non tender No edema Data 02/22/25 05:05 02/22/25 05:05 A&P Assessment and plan 1. ESRD (end stage renal disease): Plan: 1. End-stage renal disease: HD per TTS scdedule . 2. Hypertension: BP controlled 3. Anemia: s/p MAX 4. Hyperkalemia: Low K diet and HD with low K dialysate, improved 5. History of CHF, UF as tolerated 6. Cystitis : abx per primary team 7. chest pain , patient evaluated using audiovisual cart. Time spent 40 minutes. PDMP PDMP Reviewed: Not Reviewed Coding Level of Care Code Acute Code for Chg Fwd Diagnoses ESRD (end stage renal disease) N18.6
[2025-02-22] MEDS: pantoprazole 40 mg SDV IVP ×2 (09:10→19:52)
[2025-02-22] MEDS: heparin 5,000 unit/mL INJ 1 mL 5000 UNIT SUBCUT ×2 (09:11→19:52)
--- NOTE | 2025-02-22 09:40 | PC.PHAR ---
Pt states she is no longer taking Carvedilol 3.125mg bid last fill 11/27/24 90ds or Losartan 50mg daily last fill 11/27/24 90ds. Pt just finished Cefdinir 300mg bid 02/16/25 5ds. During last med rec., pt stated Gabapentin was reduced down to 100mg tid-today pt states is increased back to [id number] tid.
--- NOTE | 2025-02-22 11:31 | ECG_ITS ---
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 Measurements Intervals [place] Rate: 73 P: 5 MT: 169 QRS: -7 QRSD: 111 T: 32 QT: 438 QTc: 485 Interpretive Statements SINUS RHYTHM MINIMAL VOLTAGE CRITERIA FOR LVH, CONSIDER NORMAL VARIANT [MEETS CRITERIA IN ONE OF: R(aVL), S(V1), R(V5), R(V5/V6)+S(V1)] INFERIOR MYOCARDIAL INFARCTION , PROBABLY OLD [40+ ms Q WAVE AND/OR ST/T ABNORMALITY IN II/aVF] MINOR ST DEPRESSION Compared to ECG 02/22/2025 04:59:29 TRACING ARTIFACT HAS IMPROVED Electronically Signed On 02-22-2025 13:36:15 CDT by Vance Valdez M.D. [email or web address]
[2025-02-22 11:49] LABS: Troponin 5 6HR Delta 3.2 ng/L (0-12)
[2025-02-22] MEDS: diphenhydrAMINE 50 mg/mL SDV 1mL IVP (11:53)
[2025-02-22 11:57] LABS: Troponin 5 6HR 171.2 ng/L (0-10)
[2025-02-23] VITALS (14 sets, daily range): BP systolic 91–165; BP diastolic 46–89; PULSE 59–73; RESP 16–18; TEMP 36.4–37.1; O2SAT 94–100
[2025-02-23] MEDS: morphine 4 mg/mL SDV 1 mL IVP ×4 (03:56→22:29)
--- NOTE | 2025-02-23 07:36 | P.PN_ITS ---
Subjective 2 Subjective: s/p Hd YESTERDAY Medications: Reviewed: Yes Vitals/I&O/Wt Last Vital Signs Temp 97.9 F 02/23/25 07:34 Pulse 66 02/23/25 07:34 Resp 16 02/23/25 07:34 BP 153/89 02/23/25 07:34 Pulse Ox 99 02/23/25 07:34 O2 Del Method Nasal Cannula 02/23/25 07:34 O2 Flow Rate 2 02/23/25 04:00 02/22/25 02/23/25 02/23/25 22:59 06:59 14:59 Intake Total 480 / 1140 Balance 480 / -1160 Weight last 48 hrs Weight 66.763 kg Weight 70.2 kg Weight 71.668 kg Weight 61.689 kg Physical Exam 2 Narrative: awake , alert , no distress PEERLA , No JVD S1S2 RRR per report Lungs with decreased BS ABd soft , non tender No edema Data 02/23/25 11:00 02/23/25 09:43 A&P Assessment and plan 1. ESRD (end stage renal disease): Plan: 1. End-stage renal disease: HD per TTS scdedule . s/p HD yesterdaya and HD again today 2. Hypertension: BP controlled 3. Anemia: s/p MAX 4. Hyperkalemia: Low K diet and HD with low K dialysate, improved 5. History of CHF, UF as tolerated 6. Cystitis : abx per primary team 7. chest pain , mx per primary team patient evaluated using audiovisual cart. Time spent 40 minutes. PDMP PDMP Reviewed: Not Reviewed Attestations 2 Medical Necessity Statement*: per medicine Coding Level of Care Code Acute Code for Chg Fwd Diagnoses ESRD (end stage renal disease) N18.6
[2025-02-23] MEDS: heparin 5,000 unit/mL INJ 1 mL 5000 UNIT SUBCUT ×2 (08:50→20:56)
[2025-02-23] MEDS: pantoprazole 40 mg SDV IVP ×2 (08:50→20:57)
--- NOTE | 2025-02-23 09:05 | PC.CHAP ---
Pastoral Care Encounter/Spiritual Assessment Type of Contact [] Declined lei maker visit [] Patient/Family/Request visit [] Outpatient visit [] Follow-up visit [] Physician referral [] Code/Alert [x] Routine visit [] Staff referral [] Actively dying [] Patient sleeping [] Family support [] [] Out of room [] Palliative care [] [] Receiving care in room [] Pre-surgical visit [] Trauma [] Long length of stay [] ICU visit [] Other: Relational/Emotional Strength [x] Patient feels connected with others/family/visitors/staff [] Distress [] Loneliness/isolation [] Abandonment Spirituality of Patient [x] Person of Marly [] Attends Zoroastrian of their [place] [x] Believes in Prayer [] Reads Bible or Mandaeism materials [] There are Spiritual issues to be addressed Delivery Crew Worker Interventions [x] Prayer [x] Active listening [] Non-anxious presence [x] Spiritual/emotional support [] Crisis/trauma care [] Spiritual counseling [] Bereavement support [] Provided bereavement packet [] Provided Bible/devotional materials [] Provided toy/stuffed animal, coloring book to patient or family member [] Provided Communion [] Anointing/[place] [] Salvation [x] Completed spiritual assessment [] Other: Impact on Illness or Injury [] Angry [] Fearful [] Anxious [] Often cries [] Exhaustion [] Unable to work [] Unable to attend uatsdin [] Unable to walk/stand [] Unable to read [] Unable to drive [] Unable to eat/drink [] Unable to sleep [] Unable to be with family [] Patient intubated [] Other: Summary Time spent with patient 5 min
[2025-02-23 10:59] LABS: Alanine Aminotransferase 22 U/L (0-33); Albumin Level 3.0 g/dL (3.5-5.2); Alkaline Phosphatase 167 U/L (35-105); Aspartate Amino Transferase 21 U/L (0-32); Blood Urea Nitrogen 27 mg/dL (6-20); Calcium 8.2 mg/dL (8.5-10.5); Carbon Dioxide 21 mmol/L (22-29); Chloride 95 mmol/L (98-107); Creatinine Clr Calc Pharmacy 15.8613; Globulin 3.7 g/dL (1.3-4.6); Glucose 165 mg/dL (65-115); Magnesium 2.3 mg/dL (1.7-2.3); Osmolality Calculated 283 mOsm/kg (285-295); Sodium 132 mmol/L (136-145); Total Protein 6.7 g/dL (6.6-8.7)
[2025-02-23] MEDS: diphenhydrAMINE 50 mg/mL SDV 1mL IVP (11:02)
[2025-02-23 11:05] LABS: Anion Gap 20.9 (5-19); Potassium 4.9 mmol/L (3.5-5.1)
[2025-02-23 11:14] LABS: Hematocrit 26.1 % (36-47); Hemoglobin 8.20 g/dL (11.27-16.99); Mean Corpuscular HGB Conc 31.4 g/dL (30-55); Mean Corpuscular Hemoglobin 31.4 pg (27-33); Mean Corpuscular Volume 100.0 fl (85-98); Nucleated Red Blood Cells % 0 %; Platelet Count 120 10^3/cmm (157-399); Red Blood Count 2.61 10^6/uL (3.85-5.65); White Blood Count 5.80 10^3/uL (3.29-11.43)
--- NOTE | 2025-02-23 14:27 | P.PN_ITS ---
Subjective 2 Subjective: Seen this morning. Still complains of intermittent chest pain. Currently undergoing dialysis. Has a strong coronary disease history. Says mainly her shortness of breath and chest pain brought her into the hospital. Vitals/I&O/Wt Last Vital Signs Temp 97.9 F 02/23/25 13:32 Pulse 67 02/23/25 13:32 Resp 16 02/23/25 13:32 BP 91/72 02/23/25 13:32 Pulse Ox 94 02/23/25 12:00 O2 Del Method Nasal Cannula 02/23/25 12:00 O2 Flow Rate 2 02/23/25 08:08 02/22/25 02/23/25 02/23/25 22:59 06:59 14:59 Intake Total 480 / 1140 1082 / 1082 Output Total 1423 / 1423 Balance 480 / -1160 -341 / -341 Weight last 48 hrs Weight 68.9 kg Weight 66.763 kg Weight 70.2 kg Weight 71.668 kg Weight 61.689 kg Physical Exam 2 Narrative: General: Alert oriented x3, patient seen laying in bed undergoing dialysis at this time. Appears tired deconditioned. HEENT: Normocephalic, atraumatic, EOMI, Respiratory: Clear to auscultation bilaterally with no rhonchi. Cardio S1-S2, regular rate and rhythm at this time. GI: Abdomen soft, nontender,bowel sounds + Extremities: Trace edema bilateral lower extremities Data 02/23/25 11:00 02/23/25 09:43 A&P Assessment and plan 1. Shortness of breath: 2. Hyperkalemia: 3. Chest pain: 4. End stage renal disease on dialysis: 5. Diastolic heart failure secondary to hypertension: 6. 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 Primary hypertension: Plan: Assessment: Progressive shortness of breath with associated chest pain in a patient with end-stage renal disease who appears volume overloaded likely needs additional dialysis with further ultrafiltration to remove fluid. She was given insulin in the ER for her potassium although it was not over 6. Will feed and give orange juice as needed orders are in to include D50 in the usual management of hypoglycemia I left a message with our nephrology telemedicine team for stat consult. I have not heard back quite yet Oxygen nebs for shortness of breath Patient has a recent echo on 12/26/2024 that showed grade 2 out of 4 diastolic dysfunction. Her EF was normal. If she is able to urinate I can attempt high dose diuretic. 02/23/2025 Hemoglobin 8.2 this morning, potassium 4.9 Patient undergoing dialysis at this time. Still complains of intermittent chest pain. She has a strong cardiac history and and has undergone coronary angiogram multiple times in the past. I will consult cardiology for guidance regarding her chest pain. Will check troponin series EKG done on admission did not show acute ischemic changes. Consult cardiology. Echo recently 12/27/1911/10/2024 did show grade 2 out of 4 diastolic dysfunction with normal EF. Nephrology following appreciate recommendations PDMP PDMP Reviewed: Not Reviewed Attestations 2 Medical Necessity Statement*: Continues to have chest pain. Will require continued hospitalization at this time. Diagnoses Shortness of breath R06.02 Hyperkalemia E87.5 Chest pain R07.9 End stage renal disease on dialysis N18.6; Z99.2 Diastolic heart failure secondary to hypertension I11.0; I50.30 Type 1 diabetes mellitus with other circulatory complication E10.59 Primary hypertension I10
[2025-02-24] VITALS (16 sets, daily range): BP systolic 132–199; BP diastolic 58–98; PULSE 63–91; RESP 15–20; TEMP 36.3–37; O2SAT 97–100
[2025-02-24] MEDS: morphine 4 mg/mL SDV 1 mL IVP ×4 (04:54→20:58)
[2025-02-24 05:27] LABS: Hematocrit 29.5 % (36-47); Hemoglobin 9.10 g/dL (11.27-16.99); Mean Corpuscular HGB Conc 30.8 g/dL (30-55); Mean Corpuscular Hemoglobin 31.8 pg (27-33); Mean Corpuscular Volume 103.1 fl (85-98); Nucleated Red Blood Cells % 0 %; Platelet Count 133 10^3/cmm (157-399); Red Blood Count 2.86 10^6/uL (3.85-5.65); White Blood Count 6.34 10^3/uL (3.29-11.43)
[2025-02-24 05:43] LABS: Alanine Aminotransferase 24 U/L (0-33); Albumin Level 3.5 g/dL (3.5-5.2); Alkaline Phosphatase 173 U/L (35-105); Anion Gap 14.9 (5-19); Aspartate Amino Transferase 24 U/L (0-32); Blood Urea Nitrogen 22 mg/dL (6-20); Calcium 8.7 mg/dL (8.5-10.5); Carbon Dioxide 27 mmol/L (22-29); Chloride 100 mmol/L (98-107); Creatinine Clr Calc Pharmacy 16.9386; Globulin 3.4 g/dL (1.3-4.6); Glucose 143 mg/dL (65-115); Magnesium 2.0 mg/dL (1.7-2.3); Osmolality Calculated 290 mOsm/kg (285-295); Potassium 4.9 mmol/L (3.5-5.1); Sodium 137 mmol/L (136-145); Total Protein 6.9 g/dL (6.6-8.7)
--- NOTE | 2025-02-24 07:23 | PM.PN ---
Subjective Subjective: The patient continues to complain of shortness of breath and chest discomfort. Denies nausea vomiting diarrhea headaches reassuring Medications: Reviewed: Yes Medication Review Details: Current Medications Albuterol Sulfate (Albuterol 2.5 Mg/3 Ml Neb) 2.5 mg INHALATION Q4H.RESPIRATORY PRN PRN Reason: SHORTNESS OF BREATH Aspirin (Aspirin 81 Mg Ec Tablet) 81 mg PO QAM [facility] Last Admin: 02/24/25 04:53 Dose: 81 mg Atorvastatin Calcium (Atorvastatin 40 Mg Tablet) 40 mg PO BEDTIME [facility] Last Admin: 02/23/25 20:56 Dose: 40 mg Bumetanide (Bumetanide 1 Mg Tablet) 1 mg PO BID [facility] Last Admin: 02/23/25 17:15 Dose: Not Given Clopidogrel Bisulfate (Clopidogrel 75 Mg Tablet) 75 mg PO DAILY [facility] Last Admin: 02/23/25 09:54 Dose: 75 mg Diphenhydramine HCl (Diphenhydramine 50 Mg/Ml Sdv 1ml) 50 mg IVP ONCE PRN PRN Reason: dialysis Last Admin: 02/23/25 11:02 Dose: 50 mg Docusate Sodium (Docusate Sodium 100 Mg Capsule) 100 mg PO BID@0500,1700 [facility] Last Admin: 02/24/25 04:51 Dose: Not Given Escitalopram Oxalate (Escitalopram 10 Mg Tablet) 20 mg PO DAILY [facility] Folic Acid (Folic Acid 1 Mg Tablet) 1 mg PO DAILY [facility] Last Admin: 02/23/25 09:54 Dose: 1 mg Glucagon (Glucagon 1 Mg/Ml Kit 1 Ml) 1 mg IM ONCE PRN; Protocol PRN Reason: Adult Acute Hypoglycemia Nursing Prot. Heparin Sodium (Porcine) (Heparin 5,000 Unit/Ml Inj 1 Ml) 5,000 unit SUBCUT Q12H [facility] Last Admin: 02/23/25 20:56 Dose: 5,000 unit Dextrose (D5w) 500 mls @ 0 mls/hr IV ONCE PRN; Protocol PRN Reason: Adult Acute Hypoglycemia Prot Dextrose (D10w) 125 mls @ 750 mls/hr IV PRN PRN; Protocol PRN Reason: Adult Acute Hypoglycemia Nursing Protocol Dextrose (D10w) 250 mls @ 1,000 mls/hr IV PRN PRN; Protocol PRN Reason: Adult Acute Hypoglycemia Nursing Protocol Sodium Chloride (Sodium Chloride 0.9%) 1,000 mls @ 0 mls/hr IV .Q0M PRN PRN Reason: hypotension or symptomatic Albumin Human (Albumin) 12.5 gm in 50 mls @ 60 mls/hr IV PRN PRN PRN Reason: Hypotension and/or symptomatic Last Infusion: 02/23/25 12:04 Dose: Infused Ibuprofen (Ibuprofen 200 Mg Tablet) 400 mg PO Q6H PRN PRN Reason: Mild/Mod Pain Or Temp >/= 101 Last Admin: 02/23/25 08:50 Dose: 400 mg Insulin Human Lispro (Insulin Lispro 100 Unit/1 Ml) 0 unit SUBCUT WM&BEDTIME SHAY; Protocol Last Admin: 02/23/25 20:56 Dose: 4 unit Morphine Sulfate (Morphine 4 Mg/Ml Sdv 1 Ml) 4 mg IVP Q6H PRN PRN Reason: SEVERE PAIN Last Admin: 02/24/25 04:54 Dose: 4 mg Pantoprazole Sodium (Pantoprazole 40 Mg Sdv) 40 mg IVP Q12H [facility] Last Admin: 02/23/25 20:57 Dose: 40 mg Sevelamer Carbonate (Sevelamer 800 Mg Tablet) 800 mg PO TID [facility] Last Admin: 02/23/25 20:56 Dose: 800 mg Vitals/I&O/Wt Last Vital Signs Temp 98.6 F 02/24/25 03:58 Pulse 68 02/24/25 06:00 Resp 17 02/24/25 04:54 BP 132/58 02/24/25 03:58 Pulse Ox 100 02/24/25 04:54 O2 Del Method Nasal Cannula 02/24/25 03:58 O2 Flow Rate 2 02/24/25 03:58 02/23/25 02/24/25 02/24/25 22:59 06:59 14:59 Intake Total 480 / 1562 Balance 480 / 139 Weight last 48 hrs Weight 67.302 kg Weight 68.9 kg Weight 66.763 kg Weight 70.2 kg Weight 71.668 kg Physical Exam Narrative: Vital signs noted. Patient lying in bed using nasal cannula oxygen saturating at 100% patient appears uncomfortable but no respiratory distress. HEENT normocephalic atraumatic. Neck supple Lungs dull bases. Heart positive S1-S2 positive regular. Abdomen is soft positive bowel sounds. Extremities positive left AV fistula. 1+ leg edema. Neuro awake alert oriented x 3 Data 02/24/25 05:18 02/24/25 05:18 A&P Assessment and plan 1. ESRD (end stage renal disease): 39-year-old lady history of ESRD diastolic dysfunction hypertension type 1 diabetes. 1. Status post dialysis yesterday. Currently oxygenating well I am uncertain why she is short of breath. She does not appear to be significantly volume overloaded. Will plan for repeat dialysis tomorrow. 2. Blood pressure adequately controlled. 3. Diabetes per primary 4. Mild anemia will give Epogen. Monitor iron studies. Seen and examined with aid of a nurse using A/V equipment. Patient consented to telehealth time to hemodialysis Plan: See above PDMP PDMP Reviewed: Not Reviewed Attestations Medical Necessity Statement*: Per hospitalist Time Spent in Patient Care: 16 - 35 minutes (>than 50% of time spent in counselling and/or direct pt care on unit). Coding Level of Care Code Acute Code for [facility] Fwd Diagnoses ESRD (end stage renal disease) N18.6
[2025-02-24] MEDS: ondansetron 2 mg/ML SDV 2 mL 4 MG IVP ×2 (08:48→22:37)
[2025-02-24] MEDS: pantoprazole 40 mg SDV IVP ×2 (09:01→20:59)
[2025-02-24] MEDS: heparin 5,000 unit/mL INJ 1 mL 5000 UNIT SUBCUT (09:02)
--- NOTE | 2025-02-24 09:28 | ECG_ITS ---
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 Measurements Intervals [place] Rate: 73 P: 64 PA: 183 QRS: -15 QRSD: 109 T: 10 QT: 404 QTc: 448 Interpretive Statements SINUS RHYTHM POSSIBLE LEFT ATRIAL ENLARGEMENT [-0.1mV P-WAVE IN V1/V2] INFERIOR MYOCARDIAL INFARCTION , PROBABLY OLD [40+ ms Q WAVE AND/OR ST/T ABNORMALITY IN II/aVF] Compared to ECG 02/22/2025 11:31:27 ST (T wave) deviation no longer present Myocardial infarct finding still present Electronically Signed On 02-24-2025 23:54:27 CDT by Gilberto Eugene M.D. [id number] [id number]
[2025-02-24 11:15] LABS: Troponin(5th) Baseline 172 ng/L (0-10)
--- NOTE | 2025-02-24 11:20 | ECG_ITS ---
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 Measurements Intervals [place] Rate: 91 P: 50 ID: 183 QRS: -32 QRSD: 97 T: 30 QT: 360 QTc: 444 Interpretive Statements SINUS RHYTHM POSSIBLE LEFT ATRIAL ENLARGEMENT [-0.1mV P-WAVE IN V1/V2] LEFT AXIS DEVIATION [QRS AXIS < -30] MODERATE ST DEPRESSION [0.05+ mV ST DEPRESSION] Compared to ECG 02/24/2025 09:28:29 Left-axis deviation now present ST (T wave) deviation now present Myocardial infarct finding no longer present Electronically Signed On 02-24-2025 17:32:45 CDT by Gilberto Eugene M.D. [id number]
--- NOTE | 2025-02-24 11:33 | USCV_ITS ---
Dnoita Aguilar Age: 39 Gender: F : 1985 Exam Date: 02/24/2025 12:04 Ordering Phys: Elza Carranza Technologist: Exam Location: [facility] – [place] Indication: ef BP: 135 / 85 HR: Rhythm: Sinus Technical Quality: Adequate MEASUREMENTS (Male / Female) Normal Values 2D ECHO LV Diastolic Diameter PLAX 4.6 cm 4.2 - 5.9 / 3.9 - 5.3 cm LV Systolic Diameter PLAX 3.5 cm IVS Diastolic Thickness 1.2 cm 0.6 - 1.0 / 0.6 - 0.9 cm IVS Systolic Thickness 1.6 cm LVPW Diastolic Thickness 1.1 cm 0.6 - 1.0 / 0.6 - 0.9 cm LVPW Systolic Thickness 1.8 cm LVOT Diameter 2.0 cm LV Ejection Fraction 2D Teich 48.5 % LV Ejection Fraction MOD 4C 41.3 % LV Ejection Fraction MOD 2C 57.4 % LV Ejection Fraction 2C AL 57.8 % LA Diameter 3.4 cm LA Sys Volume AL 67.6 cm cubed LA Sys Volume Index AL 35.7 cm cubed/m squared Aorta at Sinotubular Diameter 2.3 cm IVC Diameter 1.9 cm FINDINGS Left Ventricle Right Ventricle Right Atrium Left Atrium Mitral Valve Aortic Valve Tricuspid Valve Pulmonic Valve Pericardium Aorta IVC CONCLUSIONS Normal left ventricular size and function with an estimated ejection fraction of 55-60 %. No regional wall motion abnormalities Riccardo Burch MD (Electronically Signed) Final Date: 24 February 2025 22:08 S
--- NOTE | 2025-02-24 11:35 | PM.CONSULT ---
Providers/Reason For Consult Consulting Physician/Specialty*: Dr Burch, interventional cardiology Reason for Consult*: chest pain, elevated troponin Requesting Physician: Dr. 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 #1 ea 06/12/22 02/22/25 Unknown Rx (Dexcom G6 [employer] The Handicapped) sevelamer carbonate 800 mg tablet 800 mg PO TID #90 tabs 09/16/23 02/22/25 02/21/25 Rx clonidine HCl 0.1 mg tablet See Rx Instructions .Route 11/27/23 02/22/25 Unknown History .COMPLEX PRN Blood Pressure gabapentin 100 mg capsule 300 mg PO TID 12/27/23 02/22/25 02/21/25 History aspirin 81 mg tablet,delayed 81 mg PO QAM 30 days #30 tabs 03/28/24 02/22/25 02/21/25 Rx release atorvastatin 40 mg tablet 40 mg PO BEDTIME 30 days #30 tabs 03/28/24 02/22/25 02/21/25 Rx AFO brace #1 ea 04/20/24 02/22/25 Unknown Rx diabetic shoes with 3 inserts #1 ea 04/20/24 02/22/25 Unknown Rx clopidogrel 75 mg tablet 75 mg PO DAILY 04/28/24 02/22/25 02/21/25 History amlodipine 5 mg tablet 5 mg PO DAILY #30 tabs 09/30/24 02/22/25 02/21/25 Rx bumetanide 1 mg tablet See Rx Instructions .Route 09/30/24 02/22/25 02/21/25 Rx .COMPLEX #60 tabs insulin aspart U-100 100 unit/mL See Rx Instructions .Route 12/28/24 02/22/25 02/21/25 Rx (3 mL) subcutaneous pen (Novolog .COMPLEX #15 mL FlexPen U-100 Insulin aspart) escitalopram oxalate 20 mg tablet 20 mg PO DAILY anxiety 02/14/25 02/22/25 02/21/25 History folic acid 1 mg tablet 1 mg PO DAILY 02/14/25 02/22/25 02/21/25 History hydralazine 25 mg tablet 12.5 mg PO BID 02/14/25 02/22/25 02/21/25 History nifedipine 90 mg tablet,extended 90 mg PO DAILY 02/14/25 02/22/25 Unknown History release tizanidine 4 mg tablet 4 mg PO Q6H PRN Muscle Spasm 02/14/25 02/22/25 Unknown History lisinopril 40 mg tablet 40 mg PO DAILY 02/22/25 02/22/25 02/21/25 History nitroglycerin 0.4 mg sublingual See Rx Instructions .Route .COMPLEX 02/22/25 02/22/25 Unknown History tablet Allergies Allergy/AdvReac Type Severity Reaction Status Date / Time acetaminophen AdvReac Mild ADR-Gastrointestinal Verified 02/22/25 04:56 Upset Current Medications Generic Name Dose Route Start Last Admin Trade Name Tavaresq PRN Reason Stop Dose Admin Aspirin 81 mg 02/24/25 06:00 02/24/25 04:53 Aspirin 81 Mg Ec Tablet PO 81 mg QAM SHAY Administration Atorvastatin Calcium 40 mg 02/23/25 21:00 02/23/25 20:56 Atorvastatin 40 Mg Tablet PO 40 mg BEDTIME [facility] Administration Bumetanide 1 mg 02/23/25 18:00 02/24/25 09:24 Bumetanide 1 Mg Tablet PO 1 mg BID SHAY Administration Clopidogrel Bisulfate 75 mg 02/23/25 09:30 02/24/25 09:25 Clopidogrel 75 Mg Tablet PO 75 mg DAILY [facility] Administration Diphenhydramine HCl 50 mg 02/22/25 11:16 02/23/25 11:02 Diphenhydramine 50 Mg/Ml Sdv 1ml IVP 50 mg ONCE PRN Administration dialysis Docusate Sodium 100 mg 02/22/25 17:00 02/24/25 04:51 Docusate Sodium 100 Mg Capsule PO Not Given BID@0500,1700 [facility] Escitalopram Oxalate 20 mg 02/24/25 09:00 02/24/25 11:11 Escitalopram 10 Mg Tablet PO Not Given DAILY [facility] Folic Acid 1 mg 02/23/25 09:30 02/24/25 11:11 Folic Acid 1 Mg Tablet PO Not Given DAILY [facility] Heparin Sodium (Porcine) 5,000 unit 02/22/25 08:15 02/24/25 09:02 Heparin 5,000 Unit/Ml Inj 1 Ml SUBCUT 5,000 unit Q12H [facility] Administration Albumin Human 12.5 gm in 50 mls @ 60 mls/hr 02/23/25 07:23 02/23/25 12:04 Albumin IV Infused PRN PRN Infusion Hypotension and/or symptomatic Ibuprofen 400 mg 02/22/25 07:54 02/23/25 08:50 Ibuprofen 200 Mg Tablet PO 400 mg Q6H PRN Administration Mild/Mod Pain Or Temp >/= 101 Insulin Human Lispro 0 unit 02/22/25 12:00 02/24/25 09:00 Insulin Lispro 100 Unit/1 Ml SUBCUT 2 unit WM&BEDTIME [facility] Administration Protocol Morphine Sulfate 4 mg 02/22/25 20:07 02/24/25 04:54 Morphine 4 Mg/Ml Sdv 1 Ml IVP 4 mg Q6H PRN Administration SEVERE PAIN Ondansetron HCl 4 mg 02/24/25 07:28 02/24/25 08:48 Ondansetron 2 Mg/Ml Sdv 2 Ml IVP 4 mg Q4H PRN Administration NAUSEA AND VOMITING Pantoprazole Sodium 40 mg 02/22/25 08:00 02/24/25 09:01 Pantoprazole 40 Mg Sdv IVP 40 mg Q12H [facility] Administration Sevelamer Carbonate 800 mg 02/23/25 15:00 02/24/25 11:11 Sevelamer 800 Mg Tablet PO Not Given TID [facility] PFSH Acute PFSH: Medical History (Updated 02/22/25 @ 08:16 by Terrence Mckeon DO) Chest pain Diabetes mellitus HTN (hypertension) HTN (hypertension), benign Hyperkalemia Headache Accelerated hypertension Uncontrolled type 1 diabetes mellitus ESRD (end stage renal disease) Dialysis complication Hypoglycemia Hemodialysis catheter dysfunction Colitis End stage renal disease on dialysis COPD (chronic obstructive pulmonary disease) Transaminitis Intractable nausea and vomiting Hyperlipidemia CHF (congestive heart failure), NYHA class III Pulmonary hypertension CAD (coronary artery disease) Neurogenic bladder COVID-19 Tobacco dependence Drug abuse Anemia Community acquired pneumonia Esophagitis Long-term insulin use History of pancreatitis Celiac disease Recurrent UTI Non-alcoholic fatty liver disease Arnold-Chiari malformation Diabetic gastroparesis -continue Reglan Diabetic neuropathy associated with type 1 diabetes mellitus Headache, common migraine, intractable, with status migrainosus Pleural effusion 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 History of lung surgery -s/p LLL lobectomy secondary to cavitary pneumonia (2017) History of endoscopy History of cholecystectomy Family History Grandfather Diabetes Mother CAD (coronary artery disease) Diabetes Heart disease Hypertension Brother Acute lymphoblastic leukemia (ALL) in child Grandmother Thyroid disease Denies family history of Colon cancer Ovarian cancer Prostate cancer Hyperlipidemia Breast cancer Uterine cancer Stroke Social History Smoking and tobacco/nicotine status: former use of tobacco/nicotine Quit status (tobacco/nicotine): has quit using Former quit date comment: She previously smoked <1/2 PPD, quit July 2023. Second hand smoke exposure: Yes Alcohol intake: never Substance/Drug Use: current Household members: children Housing: House Marital status: Single Current occupational status: unemployed Vitals/I&O/Wt Last Vital Signs Temp 97.8 F 02/24/25 11:23 Pulse 75 02/24/25 11:23 Resp 16 02/24/25 09:23 BP 193/78 02/24/25 11:23 Pulse Ox 98 02/24/25 08:15 O2 Del Method Nasal Cannula 02/24/25 11:23 O2 Flow Rate 2 02/24/25 08:15 02/23/25 02/24/25 02/24/25 22:59 06:59 14:59 Intake Total 480 / 1562 Balance 480 / 139 Weight last 48 hrs Weight 148 lb 6 oz Weight 151 lb 14.376 oz Weight 147 lb 3 oz Weight 154 lb 12.232 oz Data 02/24/25 05:18 02/24/25 05:18 A&P PDMP PDMP Reviewed: Not Reviewed Coding Level of Care Code Acute Code for Chg Fwd
--- NOTE | 2025-02-24 11:39 | XR_ITS ---
WS: [id number] Portable AP semiupright chest, 02/24/2025 Clinical Data: chest pain Comparison: Portable chest, 02/22/2025 Findings: No nodules, masses or effusions are seen. The heart is normal. The pulmonary vascularity is not increased. No pneumonia or pneumothorax is seen. Monitor leads are on the chest wall. XR/XR chest 1V portable [id number] Impression: Negative chest.
[2025-02-24] MEDS: lidocaine 2% viscous 15 ML, aluminum-mag hydrox-simethicon 30 ML, sucralfate oral liq 1 GM PO (11:56)
[2025-02-24] MEDS: heparin 5,000 unit/mL INJ 1 mL IVP (11:57)
--- NOTE | 2025-02-24 11:57 | P.PN_ITS ---
Subjective 2 Subjective: seen this am patient complaining of chest pain also having nausea cardiology consulted, check trop, ekg Vitals/I&O/Wt Last Vital Signs Temp 97.8 F 02/24/25 11:23 Pulse 75 02/24/25 11:23 Resp 16 02/24/25 09:23 BP 193/78 02/24/25 11:23 Pulse Ox 98 02/24/25 08:15 O2 Del Method Nasal Cannula 02/24/25 11:23 O2 Flow Rate 2 02/24/25 08:15 02/23/25 02/24/25 02/24/25 22:59 06:59 14:59 Intake Total 480 / 1562 Balance 480 / 139 Weight last 48 hrs Weight 67.302 kg Weight 68.9 kg Weight 66.763 kg Weight 70.2 kg Physical Exam 2 Narrative: General: Alert oriented x3, having chest pain. HEENT: Normocephalic, atraumatic, EOMI, Respiratory: Clear to auscultation bilaterally with no rhonchi. Cardio S1-S2, regular rate and rhythm at this time. GI: Abdomen soft, nontender,bowel sounds + Extremities: Trace edema bilateral lower extremities Data 02/24/25 05:18 02/24/25 05:18 A&P Assessment and plan 1. Shortness of breath: 2. Hyperkalemia: 3. Chest pain: 4. End stage renal disease on dialysis: 5. Diastolic heart failure secondary to hypertension: 6. 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 Primary hypertension: Plan: Assessment: Progressive shortness of breath with associated chest pain in a patient with end-stage renal disease who appears volume overloaded likely needs additional dialysis with further ultrafiltration to remove fluid. She was given insulin in the ER for her potassium although it was not over 6. Will feed and give orange juice as needed orders are in to include D50 in the usual management of hypoglycemia I left a message with our nephrology telemedicine team for stat consult. I have not heard back quite yet Oxygen nebs for shortness of breath Patient has a recent echo on 12/26/2024 that showed grade 2 out of 4 diastolic dysfunction. Her EF was normal. If she is able to urinate I can attempt high dose diuretic. 02/23/2025 Hemoglobin 8.2 this morning, potassium 4.9 Patient undergoing dialysis at this time. Still complains of intermittent chest pain. She has a strong cardiac history and and has undergone coronary angiogram multiple times in the past. I will consult cardiology for guidance regarding her chest pain. Will check troponin series EKG done on admission did not show acute ischemic changes. Consult cardiology. Echo recently 12/27/1911/10/2024 did show grade 2 out of 4 diastolic dysfunction with normal EF. Nephrology following appreciate recommendations 02/24/2025 hb 9.10 this am s/p dialysis yesterday Patient having chest pain. Troponin yesterday was checked and it was 168 lower than her usual when she comes in with NSTEMI. This morning troponin is 172. Cardiology has already been consulted. They will make recommendations. She did have a history of coronary artery disease status post PCI. Will consider repeating echo today to evaluate for wall motion abnormalities I will place on heparin drip and treat for unstable angina. Will check troponin series and EKG. Will transfer patient to CSU. Discussed with cardiology this morning. PDMP PDMP Reviewed: Not Reviewed Attestations 2 Medical Necessity Statement*: Chest pain workup. Diagnoses Shortness of breath R06.02 Hyperkalemia E87.5 Chest pain R07.9 End stage renal disease on dialysis N18.6; Z99.2 Diastolic heart failure secondary to hypertension I11.0; I50.30 Type 1 diabetes mellitus with other circulatory complication E10.59 Primary hypertension I10
[2025-02-24] MEDS: heparin drip 25,000 UNIT/500 ML PREMIX 19 UNIT IV (11:58)
[2025-02-24 12:38] LABS: Troponin 5 2HR Delta 0.6 ABS# (0-10)
[2025-02-24 12:57] LABS: Troponin 5 2HR 172.6 ng/L (0-10)
[2025-02-24] MEDS: nitroglycerin 1 gm/inch oint Pkt 1 INCH TOPICAL ×2 (12:57→17:18)
[2025-02-24 13:44] LABS: NT Pro B Type Natriuretic Pept 34489 pg/mL (0-125)
--- NOTE | 2025-02-24 15:18 | ECG_ITS ---
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 Measurements Intervals [place] Rate: 66 P: 17 RI: 172 QRS: -16 QRSD: 97 T: -1 QT: 425 QTc: 447 Interpretive Statements SINUS RHYTHM INFERIOR MYOCARDIAL INFARCTION , OF INDETERMINATE AGE [40+ ms Q WAVE AND/OR ST/T ABNORMALITY IN II/aVF] Compared to ECG 02/24/2025 11:20:40 Myocardial infarct finding now present Left-axis deviation no longer present ST (T wave) deviation no longer present Electronically Signed On 02-24-2025 23:53:56 CDT by Gilberto Eugene M.D. [id number]
[2025-02-24 17:48] LABS: Troponin 5 6HR Delta -4.8 ng/L (0-12)
[2025-02-24 17:50] LABS: Troponin 5 6HR 167.2 ng/L (0-10)
--- NOTE | 2025-02-24 18:23 | PC.NURSE ---
patient requested morphine when nurse was putting on her nitropaste, however, this nurse does not feel safe at this time giving her any morphine because she has not been awake since she arrived on the floor. She is very lethargic and per NEWSPAPER STUFFER, did not respond to glucose finger stick.
[2025-02-24 19:00] LABS: Partial Thromboplastin Time 158.3 SECONDS (23.9-36.7)
--- NOTE | 2025-02-24 19:08 | PC.NURSE ---
Ptt came back at 158.3, per Doctor Tala hold for 6 hours and restart at half the rate.
[2025-02-24] MEDS: metoclopramide 5 mg/mL SDV 2 mL IVP (21:05)
--- NOTE | 2025-02-24 21:56 | PM.CONSULT ---
Providers/Reason For Consult Consulting Physician/Specialty*: Riccardo Burch MD/ Cardiology Reason for Consult*: Chest pain Requesting Physician: Dr Garcia Attending Physician: Aleksandra Garcia MD Primary Care Provider: SUZANNE Dias History of Present Illness History of Present Illness Donita Aguilar is a 39 year old female with past medical history of CAD with multiple stents in the past, diabetes, end-stage renal disease on dialysis who has been in the hospital for missing dialysis. Cardiology was consulted and she started complaining of chest discomfort. Has been feeling nausea and vomiting. States pain is epigastric and substernal. She had coronary angiogram performed back in September that did not reveal severe stenosis and patent prior stents. Echo done today shows normal LV systolic function. EKG is not showing ischemic changes. Troponins are elevated that is chronic for her and no significant uptrend. Review of Systems Card: Reports: chest pain Medications/Allergies Home Medications ?Medication ?Instructions ?Recorded ?Confirmed ?Last Taken ?Type blood-glucose sensor (Dexcom G6 #3 ea 06/12/22 02/22/25 Unknown Rx Sensor device) blood-glucose transmitter (Dexcom #1 ea 06/12/22 02/22/25 Unknown Rx G6 Transmitter device) blood-glucose,audit consultant,cont #1 ea 06/12/22 02/22/25 Unknown Rx (Dexcom G6 Strickler Attendant) sevelamer carbonate 800 mg tablet 800 mg PO TID #90 tabs 09/16/23 02/22/25 02/21/25 Rx clonidine HCl 0.1 mg tablet See Rx Instructions .Route 11/27/23 02/22/25 Unknown History .COMPLEX PRN Blood Pressure gabapentin 100 mg capsule 300 mg PO TID 12/27/23 02/22/25 02/21/25 History aspirin 81 mg tablet,delayed 81 mg PO QAM 30 days #30 tabs 03/28/24 02/22/25 02/21/25 Rx release atorvastatin 40 mg tablet 40 mg PO BEDTIME 30 days #30 tabs 03/28/24 02/22/25 02/21/25 Rx AFO brace #1 ea 04/20/24 02/22/25 Unknown Rx diabetic shoes with 3 inserts #1 ea 04/20/24 02/22/25 Unknown Rx clopidogrel 75 mg tablet 75 mg PO DAILY 04/28/24 02/22/25 02/21/25 History amlodipine 5 mg tablet 5 mg PO DAILY #30 tabs 09/30/24 02/22/25 02/21/25 Rx bumetanide 1 mg tablet See Rx Instructions .Route 09/30/24 02/22/25 02/21/25 Rx .COMPLEX #60 tabs insulin aspart U-100 100 unit/mL See Rx Instructions .Route 12/28/24 02/22/25 02/21/25 Rx (3 mL) subcutaneous pen (Novolog .COMPLEX #15 mL FlexPen U-100 Insulin aspart) escitalopram oxalate 20 mg tablet 20 mg PO DAILY anxiety 02/14/25 02/22/25 02/21/25 History folic acid 1 mg tablet 1 mg PO DAILY 02/14/25 02/22/25 02/21/25 History hydralazine 25 mg tablet 12.5 mg PO BID 02/14/25 02/22/25 02/21/25 History nifedipine 90 mg tablet,extended 90 mg PO DAILY 02/14/25 02/22/25 Unknown History release tizanidine 4 mg tablet 4 mg PO Q6H PRN Muscle Spasm 02/14/25 02/22/25 Unknown History lisinopril 40 mg tablet 40 mg PO DAILY 02/22/25 02/22/25 02/21/25 History nitroglycerin 0.4 mg sublingual See Rx Instructions .Route .COMPLEX 02/22/25 02/22/25 Unknown History tablet Allergies Allergy/AdvReac Type Severity Reaction Status Date / Time acetaminophen AdvReac Mild ADR-Gastrointestinal Verified 02/22/25 04:56 Upset Current Medications Generic Name Dose Route Start Last Admin Trade Name Jan PRN Reason Stop Dose Admin Aspirin 81 mg 02/24/25 06:00 02/24/25 04:53 Aspirin 81 Mg Ec Tablet PO 81 mg QAM SHAY Administration Atorvastatin Calcium 40 mg 02/23/25 21:00 02/24/25 20:58 Atorvastatin 40 Mg Tablet PO 40 mg BEDTIME SHAY Administration Bumetanide 1 mg 02/23/25 18:00 02/24/25 17:19 Bumetanide 1 Mg Tablet PO 1 mg BID SHAY Administration Clopidogrel Bisulfate 75 mg 02/23/25 09:30 02/24/25 09:25 Clopidogrel 75 Mg Tablet PO 75 mg DAILY SHAY Administration Diphenhydramine HCl 50 mg 02/22/25 11:16 02/23/25 11:02 Diphenhydramine 50 Mg/Ml Sdv 1ml IVP 50 mg ONCE PRN Administration dialysis Docusate Sodium 100 mg 02/22/25 17:00 02/24/25 17:19 Docusate Sodium 100 Mg Capsule PO Not Given BID@0500,1700 [facility] Escitalopram Oxalate 20 mg 02/24/25 09:00 02/24/25 11:11 Escitalopram 10 Mg Tablet PO Not Given DAILY [facility] Folic Acid 1 mg 02/23/25 09:30 02/24/25 11:11 Folic Acid 1 Mg Tablet PO Not Given DAILY [facility] Albumin Human 12.5 gm in 50 mls @ 60 mls/hr 02/23/25 07:23 02/23/25 12:04 Albumin IV Infused PRN PRN Infusion Hypotension and/or symptomatic Heparin Sodium/Sodium Chloride 25,000 unit in 500 mls @ 0 mls/hr 02/24/25 11:45 02/24/25 19:05 Heparin Drip IV 0 unit/kg/hr CONT [facility] 0 mls/hr Protocol Titration Per Protocol Ibuprofen 400 mg 02/22/25 07:54 02/23/25 08:50 Ibuprofen 200 Mg Tablet PO 400 mg Q6H PRN Administration Mild/Mod Pain Or Temp >/= 101 Insulin Human Lispro 0 unit 02/22/25 12:00 02/24/25 20:45 Insulin Lispro 100 Unit/1 Ml SUBCUT Not Given WM&BEDTIME [facility] Protocol Metoclopramide HCl 5 mg 02/24/25 11:55 02/24/25 21:05 Metoclopramide 5 Mg/Ml Sdv 2 Ml IVP 5 mg Q6H PRN Administration NAUSEA AND VOMITING Morphine Sulfate 4 mg 02/22/25 20:07 02/24/25 20:58 Morphine 4 Mg/Ml Sdv 1 Ml IVP 4 mg Q6H PRN Administration SEVERE PAIN Nitroglycerin 1 inch 02/24/25 12:45 02/24/25 17:18 Nitroglycerin 1 Gm/Inch Oint Pkt TOPICAL 1 inch Q6H SHAY Administration Ondansetron HCl 4 mg 02/24/25 07:28 02/24/25 08:48 Ondansetron 2 Mg/Ml Sdv 2 Ml IVP 4 mg Q4H PRN Administration NAUSEA AND VOMITING Pantoprazole Sodium 40 mg 02/22/25 08:00 02/24/25 20:59 Pantoprazole 40 Mg Sdv IVP 40 mg Q12H SHAY Administration Sevelamer Carbonate 800 mg 02/23/25 15:00 02/24/25 21:02 Sevelamer 800 Mg Tablet PO Not Given TID SHAY PFSH Acute PFSH: Medical History (Updated 02/22/25 @ 08:16 by Terrence Mckeon DO) Chest pain Diabetes mellitus HTN (hypertension) HTN (hypertension), benign Hyperkalemia Headache Accelerated hypertension Uncontrolled type 1 diabetes mellitus ESRD (end stage renal disease) Dialysis complication Hypoglycemia Hemodialysis catheter dysfunction Colitis End stage renal disease on dialysis COPD (chronic obstructive pulmonary disease) Transaminitis Intractable nausea and vomiting Hyperlipidemia CHF (congestive heart failure), NYHA class III Pulmonary hypertension CAD (coronary artery disease) Neurogenic bladder COVID-19 Tobacco dependence Drug abuse Anemia Community acquired pneumonia Esophagitis Long-term insulin use History of pancreatitis Celiac disease Recurrent UTI Non-alcoholic fatty liver disease Arnold-Chiari malformation Diabetic gastroparesis -continue Reglan Diabetic neuropathy associated with type 1 diabetes mellitus Headache, common migraine, intractable, with status migrainosus Pleural effusion 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 History of lung surgery -s/p LLL lobectomy secondary to cavitary pneumonia (2017) History of endoscopy History of cholecystectomy Family History Grandfather Diabetes Mother CAD (coronary artery disease) Diabetes Heart disease Hypertension Brother Acute lymphoblastic leukemia (ALL) in child Grandmother Thyroid disease Denies family history of Colon cancer Ovarian cancer Prostate cancer Hyperlipidemia Breast cancer Uterine cancer Stroke Social History Smoking and tobacco/nicotine status: former use of tobacco/nicotine Quit status (tobacco/nicotine): has quit using Former quit date comment: She previously smoked <1/2 PPD, quit July 2023. Second hand smoke exposure: Yes Alcohol intake: never Substance/Drug Use: current Household members: children Housing: House Marital status: Single Current occupational status: unemployed Vitals/I&O/Wt Last Vital Signs Temp 97.9 F 02/24/25 20:00 Pulse 79 02/24/25 20:00 Resp 16 02/24/25 20:58 BP 185/98 02/24/25 20:00 Pulse Ox 100 02/24/25 20:00 O2 Del Method Room Air 02/24/25 20:00 O2 Flow Rate 2 02/24/25 08:15 02/24/25 02/24/25 02/24/25 06:59 14:59 22:59 Intake Total 135.217 / 135.217 Balance 135.217 / 135.217 Weight last 48 hrs Weight 148 lb 6 oz Weight 151 lb 14.376 oz Weight 147 lb 3 oz Physical Exam Narrative: GENERAL: Patient is alert, awake and oriented x3. [] NECK: No jugular vein distension. [] HEENT: No cyanosis. No icterus. No pallor. [] HEART: Regular S1 and S2. No murmur, rub or gallop. [] LUNGS: Clear to auscultate bilaterally. [] CENTRAL NERVOUS SYSTEM: Grossly nonfocal. [] EXTREMITIES: Lower extremities with no edema bilaterally. Data 02/25/25 00:49 02/25/25 00:49 A&P Assessment and plan 1. Chest pain: 2. HTN (hypertension), benign: 3. Diabetes mellitus: 4. CAD (coronary artery disease): Plan: Patient's chest pain symptoms are atypical. Given last heart cath a few months back showing patent prior stents, we will proceed with stress test. Further recommendations based on stress test results Thank you for involving us with care of this patient. Please call with questions. PDMP PDMP Reviewed: Not Reviewed Consult Attestations Medical Necessity Statement: Care expected to cross 2 midnights Coding Level of Care Code Acute Code for [facility] Fwd Diagnoses Chest pain R07.9 HTN (hypertension), benign I10 Diabetes mellitus E11.9 CAD (coronary artery disease) I25.10
[2025-02-25] VITALS (12 sets, daily range): BP systolic 109–199; BP diastolic 47–105; PULSE 76–100; RESP 11–21; TEMP 36.6–38.2; O2SAT 96–100; BMI 29.9
[2025-02-25] MEDS: hyDRALAzine 20 mg/mL INJ 1 mL 10 MG IVP (00:07)
[2025-02-25] MEDS: nitroglycerin 1 gm/inch oint Pkt 1 INCH TOPICAL ×2 (00:07→05:51)
[2025-02-25 01:03] LABS: Hematocrit 31.2 % (36-47); Hemoglobin 10.00 g/dL (11.27-16.99); Mean Corpuscular HGB Conc 32.1 g/dL (30-55); Mean Corpuscular Hemoglobin 31.3 pg (27-33); Mean Corpuscular Volume 97.8 fl (85-98); Nucleated Red Blood Cells % 0 %; Platelet Count 162 10^3/cmm (157-399); Red Blood Count 3.19 10^6/uL (3.85-5.65); White Blood Count 11.23 10^3/uL (3.29-11.43)
[2025-02-25 01:26] LABS: Anion Gap 27.0 (5-19); Blood Urea Nitrogen 34 mg/dL (6-20); Calcium 9.5 mg/dL (8.5-10.5); Carbon Dioxide 19 mmol/L (22-29); Chloride 98 mmol/L (98-107); Creatinine Clr Calc Pharmacy 12.5559; Glucose 189 mg/dL (65-115); Magnesium 2.2 mg/dL (1.7-2.3); Osmolality Calculated 301 mOsm/kg (285-295); Potassium 5.0 mmol/L (3.5-5.1); Sodium 139 mmol/L (136-145)
[2025-02-25] MEDS: ondansetron 2 mg/ML SDV 2 mL 4 MG IVP ×3 (06:13→13:57)
[2025-02-25 08:02] LABS: Partial Thromboplastin Time 35.8 SECONDS (23.9-36.7)
[2025-02-25] MEDS: morphine 4 mg/mL SDV 1 mL IVP ×2 (08:11→20:37)
[2025-02-25] MEDS: metoclopramide 5 mg/mL SDV 2 mL IVP ×2 (08:12→20:38)
--- NOTE | 2025-02-25 09:15 | PC.NURSE ---
heparin drip stopped per Dr Garcia
--- NOTE | 2025-02-25 09:49 | PM.PN ---
Subjective Subjective: Patient not feeling well complaining of nausea chest pain weakness and lethargy swollen and high blood pressure. Medications: Reviewed: Yes Medication Review Details: Current Medications Albuterol Sulfate (Albuterol 2.5 Mg/3 Ml Neb) 2.5 mg INHALATION Q4H.RESPIRATORY PRN PRN Reason: SHORTNESS OF BREATH Aspirin (Aspirin 81 Mg Ec Tablet) 81 mg PO QAM [facility] Last Admin: 02/25/25 05:51 Dose: 81 mg Atorvastatin Calcium (Atorvastatin 40 Mg Tablet) 40 mg PO BEDTIME [facility] Last Admin: 02/24/25 20:58 Dose: 40 mg Bumetanide (Bumetanide 1 Mg Tablet) 1 mg PO BID [facility] Last Admin: 02/25/25 08:12 Dose: 1 mg Clopidogrel Bisulfate (Clopidogrel 75 Mg Tablet) 75 mg PO DAILY [facility] Last Admin: 02/25/25 08:12 Dose: 75 mg Diphenhydramine HCl (Diphenhydramine 50 Mg/Ml Sdv 1ml) 50 mg IVP ONCE PRN PRN Reason: dialysis Last Admin: 02/23/25 11:02 Dose: 50 mg Docusate Sodium (Docusate Sodium 100 Mg Capsule) 100 mg PO BID@0500,1700 [facility] Last Admin: 02/25/25 05:31 Dose: Not Given Escitalopram Oxalate (Escitalopram 10 Mg Tablet) 20 mg PO DAILY [facility] Last Admin: 02/25/25 08:13 Dose: 20 mg Folic Acid (Folic Acid 1 Mg Tablet) 1 mg PO DAILY [facility] Last Admin: 02/25/25 08:13 Dose: Not Given Glucagon (Glucagon 1 Mg/Ml Kit 1 Ml) 1 mg IM ONCE PRN; Protocol PRN Reason: Adult Acute Hypoglycemia Nursing Prot. Dextrose (D5w) 500 mls @ 0 mls/hr IV ONCE PRN; Protocol PRN Reason: Adult Acute Hypoglycemia Prot Dextrose (D10w) 125 mls @ 750 mls/hr IV PRN PRN; Protocol PRN Reason: Adult Acute Hypoglycemia Nursing Protocol Dextrose (D10w) 250 mls @ 1,000 mls/hr IV PRN PRN; Protocol PRN Reason: Adult Acute Hypoglycemia Nursing Protocol Sodium Chloride (Sodium Chloride 0.9%) 1,000 mls @ 0 mls/hr IV .Q0M PRN PRN Reason: hypotension or symptomatic Albumin Human (Albumin) 12.5 gm in 50 mls @ 60 mls/hr IV PRN PRN PRN Reason: Hypotension and/or symptomatic Last Infusion: 02/23/25 12:04 Dose: Infused Ibuprofen (Ibuprofen 200 Mg Tablet) 400 mg PO Q6H PRN PRN Reason: Mild/Mod Pain Or Temp >/= 101 Last Admin: 02/23/25 08:50 Dose: 400 mg Insulin Human Lispro (Insulin Lispro 100 Unit/1 Ml) 0 unit SUBCUT WM&BEDTIME [facility]; Protocol Last Admin: 02/25/25 08:12 Dose: Not Given Metoclopramide HCl (Metoclopramide 5 Mg/Ml Sdv 2 Ml) 5 mg IVP Q6H PRN PRN Reason: NAUSEA AND VOMITING Last Admin: 02/25/25 08:12 Dose: 5 mg Morphine Sulfate (Morphine 4 Mg/Ml Sdv 1 Ml) 4 mg IVP Q6H PRN PRN Reason: SEVERE PAIN Last Admin: 02/25/25 08:11 Dose: 4 mg Nitroglycerin (Nitroglycerin 1 Gm/Inch Oint Pkt) 1 inch TOPICAL Q6H [facility] Last Admin: 02/25/25 05:51 Dose: 1 inch Ondansetron HCl (Ondansetron 2 Mg/Ml Sdv 2 Ml) 4 mg IVP Q4H PRN PRN Reason: NAUSEA AND VOMITING Last Admin: 02/25/25 06:13 Dose: 4 mg Pantoprazole Sodium (Pantoprazole 40 Mg Sdv) 40 mg IVP Q12H [facility] Last Admin: 02/25/25 08:13 Dose: Not Given Scopolamine (Scopolamine 1 Mg Patch) 1 patch TRANSDERMA Q3D [facility] Last Admin: 02/24/25 23:11 Dose: 1 patch Sevelamer Carbonate (Sevelamer 800 Mg Tablet) 800 mg PO TID [facility] Last Admin: 02/25/25 08:13 Dose: Not Given Vitals/I&O/Wt Last Vital Signs Temp 97.8 F 02/25/25 07:35 Pulse 97 02/25/25 07:35 Resp 20 H 02/25/25 08:11 BP 175/95 02/25/25 07:35 Pulse Ox 96 02/25/25 08:11 O2 Del Method Room Air 02/25/25 07:35 O2 Flow Rate 2 02/24/25 08:15 02/24/25 02/25/25 02/25/25 22:59 06:59 14:59 Intake Total 375.217 / 375.217 0 / 375.217 79.200 / 79.200 Balance 375.217 / 375.217 0 / 375.217 79.200 / 79.200 Weight last 48 hrs Weight 69.655 kg Weight 67.302 kg Weight 68.9 kg Physical Exam Narrative: Vital signs noted. Blood pressure elevated. Patient lying in bed using nasal cannula oxygen saturating at 96% patient appears uncomfortable but no respiratory distress. HEENT normocephalic atraumatic. Neck supple Lungs dull bases. Heart positive S1-S2 positive regular. Abdomen is soft positive bowel sounds. Extremities positive left AV fistula. 1+ leg edema. Neuro awake alert oriented x 3 Data 02/25/25 00:49 02/25/25 00:49 A&P Assessment and plan 1. ESRD (end stage renal disease): 39-year-old lady history of ESRD diastolic dysfunction hypertension type 1 diabetes. 1. End-stage renal disease dialysis today and try to remove fluids as tolerated she is above her dry weight. 2. Patient has known coronary artery disease diabetes ESRD. Patient also has diastolic dysfunction/heart failure preserved EF. Patient is being evaluated by cardiology. Patient is on heparin 3. Hypertension monitor with fluid removal and would use an ARB in this patient 4. Diabetes per primary. Sugars are relatively well-controlled unlikely the cause of her nausea however may have underlying diabetic gastroparesis 5. [id number] Epogen acceptable. Otherwise will not try to raise hemoglobin too high as hemoglobin benton from 8.2-10 and question of coronary artery disease. 6. Check phosphorus level 7. Elevated BNP heart failure preserved EF coronary artery disease risk factors. Remove fluids on dialysis 8. Check vitamin D levels been very low in the past Medications reviewed Seen and examined with aid of a nurse using A/V equipment. Patient consented to telehealth time to hemodialysis Plan: See above PDMP PDMP Reviewed: Not Reviewed Attestations Medical Necessity Statement*: ESRD elevated BNP, heart failure preserved EF, chest pains, nausea, diabetes sugars relatively well-controlled Time Spent in Patient Care: 16 - 35 minutes (>than 50% of time spent in counselling and/or direct pt care on unit). Coding Level of Care Code Acute Code for [facility] Fwd Diagnoses ESRD (end stage renal disease) N18.6
[2025-02-25] MEDS: diphenhydrAMINE 50 mg/mL SDV 1mL IVP ×2 (10:32→10:48)
--- NOTE | 2025-02-25 10:36 | P.PN_ITS ---
<Statement entered by Riccardo Burch M.D - 03/04/25 11:45> Patient was cared for in conjunction with an advanced practice practitioner.? I reviewed the chart and all pertinent data including imaging, telemetry, and laboratory results.? I discussed the patient in detail with the advanced practice practitioner.? Please see their note for complete progress note, testing results and agreed upon plan of care for the patient. Subjective 2 Subjective: She is very nauseous this morning, refused Lexiscan stress test. No chest pain currently. Vitals/I&O/Wt Last Vital Signs Temp 99.7 F H 02/25/25 10:23 Pulse 100 02/25/25 10:23 Resp 18 02/25/25 10:23 BP 189/105 02/25/25 10:23 Pulse Ox 96 02/25/25 08:11 O2 Del Method Room Air 02/25/25 07:35 O2 Flow Rate 2 02/24/25 08:15 02/24/25 02/25/25 02/25/25 22:59 06:59 14:59 Intake Total 375.217 / 375.217 0 / 375.217 79.200 / 79.200 Balance 375.217 / 375.217 0 / 375.217 79.200 / 79.200 Weight last 48 hrs Weight 153 lb 9 oz Weight 148 lb 6 oz Weight 151 lb 14.376 oz Physical Exam 2 Const: COMMON NORMALS: no acute distress and patient oriented x3 GENERAL APPEARANCE: cooperative and comfortable ORIENTATION/CONSCIOUSNESS: Yes awake, Yes oriented to person, Yes oriented to place and Yes oriented to time Chest: COMMONS NORMALS: normal inspection of the chest and normal palpation of entire chest wall CHEST: Yes Symmetrical chest wall rise Resp: COMMON NORMALS: normal respiratory effort, No retractions, No use of accessory muscles and clear to auscultation bilaterally EFFORT & INSPECTION: Yes symmetric chest movement AUSCULTATION: clear to auscultation bilaterally Cardio: COMMON NORMALS: regular rate, regular rhythm, S1 normal heart sound present, S2 normal heart sound present, No gallops present (Cardio), No clicks present (Cardio), No murmurs present (Cardio) and No rub (Cardio) RATE: r egular rate RHYTHM: regular rhythm HEART SOUNDS: S1 normal heart sound present and S2 normal heart sound present PERIPHERAL PULSES: radial pulses present Extremity: COMMON NORMALS: no pedal edema Neuro: COMMON NORMALS: patient oriented x3 and moves all extremities S ENSORIUM/ORIENTATION: Yes oriented to person, Yes oriented to place and Yes oriented to time Data 02/25/25 00:49 02/25/25 00:49 A&P Assessment and plan 1. Atherosclerotic heart disease of [place] coronary artery with other forms of angina pectoris: 2. Hyperlipidemia: 3. HTN (hypertension): 4. Diabetes mellitus: 5. ESRD (end stage renal disease): Plan: She declined Lexiscan stress test due to nausea, but agreed to dobutamine stress test for chest pain workup. Troponin has been flat, no ischemic EKG changes, LVEF normal on echocardiogram. Will discuss with hospitalist service. PDMP PDMP Reviewed: Not Reviewed Attestations 2 Medical Necessity Statement*: ischemic workup Coding Level of Care Code Acute Code for [facility] Fwd Diagnoses Atherosclerotic heart disease of [place] coronary artery with other forms of angina pectoris I25.118 Hyperlipidemia E78.5 HTN (hypertension) I10 Diabetes mellitus E11.9 ESRD (end stage renal disease) N18.6
--- NOTE | 2025-02-25 10:44 | ECG_ITS ---
[employer] Test Date: 2025-02-25 Pat Name: Donita Aguilar Department: Room: 105 Gender: Female Slip Operator: : 1985 Requested By: Riccardo Burch Order Number: [id number] Faviola MD: Gilberto Eugene M.D. Interpretive Statements Lung unchanged pre/post procedure; Intraprocedure shortess of breath; Symptoms resoled by discharge PROCEDURE: At the baseline, the blood pressure was 145/99 with a heart rate of 83. The electrocardiogram showed normal sinus rhythm with a normal ST Ts.. The dobutamine was infused over a period of 14 minutes and 7 seconds. The maximum heart rate obtained was 154 (84% of the maximum predicted heart rate). The blood pressure at that time was 153/74 mmHg. The patient did not have any chest pain or any significant electrocardiogram changes with the dobutamine infusion.[] The physical examination remained unchanged. No arrhythmias were seen on the monitor. During the recovery phase, the patient did not have any specific symptoms. The blood pressure at the end of the recovery phase was 146/77 with a heart rate of 78 per minute. CONCLUSION: 1. Abnormal EKG response to dobutamine fusion. 2. No dobutamine used for chest pain or cardiac arrhythmia. 3. [Appropriate heart rate and blood pressure response to the dobutamine fusion 4. Low probability for coronary ischemia, based on the above findings Electronically Signed On 02-27-2025 13:02:24 CDT by Gilberto Eugene M.D. [email or web address]
--- NOTE | 2025-02-25 10:46 | USCV_ITS ---
LaurenDonita Age: 39 Gender: F : 1985 Exam Date: 02/25/2025 13:38 Ordering Phys: Riccardo Burch M.D ([email or web address]) Technologist: Exam Location: [facility] [place] Indication: Rhythm: Sinus Patient History: Chest pain, elevated trop Cardiac Medications: Medications in past 24 hours: Contrast: Total Dose (mL): Stress Results Protocol: Pharmacologic Peak Dose (???g/kg/min): Duration (min:sec): 14:07 Atropine:(mg) 0.5 Target HR: 155 Double Product: 06231 Resting HR: 84 Resting BP: 145 / 99 Peak HR: 154 Peak BP: 187 / 99 Max Predicted HR: 182 85 % Max Predicted HR Stress Summary: The hemodynamic response to stress was normal. The patient's target heart rate was not achieved. BP Response: Normal Reason for Termination: Developed significant angina Cardiac Symptoms: Chest pain ECG Analysis Resting EKG: Please see separate report Stress EKG: Please see separate report Arrhythmia: Please see separate report MEASUREMENTS (Male/Female) Normal Values FINDINGS Baseline echocardiogram revealed a mild to moderate concentric left ventricular hypertrophy with a normal ejection fraction. Relative hypokinesia of the basal inferior wall segment was noted. With the low and peak dose infusion, there was good augmentation of all the segments with no relative induced wall motion abnormalities. During the recovery phase, there was no new changes. CONCLUSIONS 1. Normal echocardiographic response to dobutamine infusion. 2. Low probability for coronary ischemia, based on the above findings Dr Gilberto Eugene MD [facility] (Electronically Signed) Final Date: 25 February 2025 19:48 S
--- NOTE | 2025-02-25 10:48 | PC.NURSE ---
ivp diphenhydramine given in dialysis
--- NOTE | 2025-02-25 12:07 | P.PN_ITS ---
Subjective 2 Subjective: Seen this morning. Denies chest pain however does feel nauseous. Could not go for stress test this morning due to nausea. Cardiology discussed with patient and she will be going for dobutamine stress echo in AM. Vitals/I&O/Wt Last Vital Signs Temp 99.7 F H 02/25/25 10:23 Pulse 100 02/25/25 10:23 Resp 18 02/25/25 10:23 BP 189/105 02/25/25 10:23 Pulse Ox 96 02/25/25 08:11 O2 Del Method Room Air 02/25/25 07:35 O2 Flow Rate 2 02/24/25 08:15 02/24/25 02/25/25 02/25/25 22:59 06:59 14:59 Intake Total 375.217 / 375.217 0 / 375.217 79.200 / 79.200 Balance 375.217 / 375.217 0 / 375.217 79.200 / 79.200 Weight last 48 hrs Weight 69.655 kg Weight 67.302 kg Weight 68.9 kg Physical Exam 2 Narrative: General: Alert oriented x3, HEENT: Normocephalic, atraumatic, EOMI, Respiratory: Clear to auscultation bilaterally with no rhonchi. Cardio S1-S2, regular rate and rhythm at this time. GI: Abdomen soft, nontender,bowel sounds + Extremities: Trace edema bilateral lower extremities Data 02/25/25 00:49 02/25/25 00:49 A&P Assessment and plan 1. Shortness of breath: 2. Hyperkalemia: 3. Chest pain: 4. End stage renal disease on dialysis: 5. Diastolic heart failure secondary to hypertension: 6. 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 Primary hypertension: Plan: Assessment: Progressive shortness of breath with associated chest pain in a patient with end-stage renal disease who appears volume overloaded likely needs additional dialysis with further ultrafiltration to remove fluid. She was given insulin in the ER for her potassium although it was not over 6. Will feed and give orange juice as needed orders are in to include D50 in the usual management of hypoglycemia I left a message with our nephrology telemedicine team for stat consult. I have not heard back quite yet Oxygen nebs for shortness of breath Patient has a recent echo on 12/26/2024 that showed grade 2 out of 4 diastolic dysfunction. Her EF was normal. If she is able to urinate I can attempt high dose diuretic. 02/23/2025 Hemoglobin 8.2 this morning, potassium 4.9 Patient undergoing dialysis at this time. Still complains of intermittent chest pain. She has a strong cardiac history and and has undergone coronary angiogram multiple times in the past. I will consult cardiology for guidance regarding her chest pain. Will check troponin series EKG done on admission did not show acute ischemic changes. Consult cardiology. Echo recently 12/27/1911/10/2024 did show grade 2 out of 4 diastolic dysfunction with normal EF. Nephrology following appreciate recommendations 02/24/2025 hb 9.10 this am s/p dialysis yesterday Patient having chest pain. Troponin yesterday was checked and it was 168 lower than her usual when she comes in with NSTEMI. This morning troponin is 172. Cardiology has already been consulted. They will make recommendations. She did have a history of coronary artery disease status post PCI. Will consider repeating echo today to evaluate for wall motion abnormalities I will place on heparin drip and treat for unstable angina. Will check troponin series and EKG. Will transfer patient to [facility]. Discussed with cardiology this morning. 02/25/2025 Troponins reviewed. Nonsignificant delta at 6 hours. Continue dialysis per nephrology recommendations Hemoglobin 10.0 stable. Stop heparin drip per cardiology Plan for dobutamine stress echo in AM. Continue to monitor on [facility]. Cardiology following appreciate recommendations Patient's blood pressure still elevated. Restart home lisinopril 40 daily, nifedipine. PDMP PDMP Reviewed: Not Reviewed Attestations 2 Medical Necessity Statement*: Chest pain workup, hypertension Diagnoses Shortness of breath R06.02 Hyperkalemia E87.5 Chest pain R07.9 End stage renal disease on dialysis N18.6; Z99.2 Diastolic heart failure secondary to hypertension I11.0; I50.30 Type 1 diabetes mellitus with other circulatory complication E10.59 Primary hypertension I10
[2025-02-25] MEDS: DOBUTtamine 200 MG in sodium chloride 0.9% 34 ML 10 MG IV (13:39)
[2025-02-25] MEDS: atropine 0.1 mg/mL Syr 10 mL 0.5 MG IVP (13:50)
[2025-02-25] MEDS: metoprolol tartrate 1 mg/1 mL SDV 5 mL 5 MG IVP (13:58)
[2025-02-25] MEDS: piperacillin-tazobactam 3.375 GM in sodium chloride 0.9% (plus) 50 ML IV (18:31)
--- NOTE | 2025-02-25 18:32 | PC.NURSE ---
Dr Garcia notified via voalte of patient's temperature being 100.8. Patient is allergic to tylenol. Dr Garcia started zosyn to treat infection.
[2025-02-26 00:13] VITALS: BP 144/67; PULSE 80; RESP 21
[2025-02-26 04:41] LABS: Hematocrit 29.9 % (36-47); Hemoglobin 9.50 g/dL (11.27-16.99); Mean Corpuscular HGB Conc 31.8 g/dL (30-55); Mean Corpuscular Hemoglobin 31.9 pg (27-33); Mean Corpuscular Volume 100.3 fl (85-98); Nucleated Red Blood Cells % 0 %; Platelet Count 205 10^3/cmm (157-399); Red Blood Count 2.98 10^6/uL (3.85-5.65); White Blood Count 10.66 10^3/uL (3.29-11.43)
[2025-02-26 04:46] VITALS: BP 140/61; PULSE 76; RESP 15; TEMP 37.4
[2025-02-26 05:04] LABS: Alanine Aminotransferase 15 U/L (0-33); Albumin Level 4.0 g/dL (3.5-5.2); Alkaline Phosphatase 196 U/L (35-105); Aspartate Amino Transferase 13 U/L (0-32); Blood Urea Nitrogen 37 mg/dL (6-20); Calcium 9.5 mg/dL (8.5-10.5); Carbon Dioxide 26 mmol/L (22-29); Chloride 97 mmol/L (98-107); Creatinine Clr Calc Pharmacy 12.8289; Globulin 4.1 g/dL (1.3-4.6); Glucose 175 mg/dL (65-115); Magnesium 2.5 mg/dL (1.7-2.3); Osmolality Calculated 303 mOsm/kg (285-295); Sodium 140 mmol/L (136-145); Total Protein 8.1 g/dL (6.6-8.7)
[2025-02-26 05:14] LABS: Anion Gap 22.0 (5-19); Potassium 5.0 mmol/L (3.5-5.1)
[2025-02-26] MEDS: piperacillin-tazobactam 3.375 GM in sodium chloride 0.9% (plus) 50 ML IV (06:21)
[2025-02-26 07:37] VITALS: BP 129/61; PULSE 79; RESP 18; TEMP 36.7
--- NOTE | 2025-02-26 08:17 | P.PN_ITS ---
<Statement entered by Riccardo Burch M.D - 03/04/25 11:46> Patient was cared for in conjunction with an advanced practice practitioner.? I reviewed the chart and all pertinent data including imaging, telemetry, and laboratory results.? I discussed the patient in detail with the advanced practice practitioner.? Please see their note for complete progress note, testing results and agreed upon plan of care for the patient. Subjective 2 Subjective: No events overnight, nausea improved. Still has intermittent chest discomfort. Vitals/I&O/Wt Last Vital Signs Temp 98.0 F 02/26/25 07:37 Pulse 79 02/26/25 07:37 Resp 18 02/26/25 07:37 BP 129/61 02/26/25 07:37 Pulse Ox 99 02/25/25 20:37 O2 Del Method Room Air 02/25/25 15:42 O2 Flow Rate 2 02/24/25 08:15 02/25/25 02/26/25 02/26/25 22:59 06:59 14:59 Intake Total 650 / 736.133 Output Total 2296 / 2476 Balance -1646 / -1739.867 Weight last 48 hrs Weight 145 lb 7 oz Weight 149 lb Weight 153 lb 9 oz Physical Exam 2 Const: COMMON NORMALS: no acute distress and patient oriented x3 GENERAL APPEARANCE: cooperative and comfortable ORIENTATION/CONSCIOUSNESS: Yes awake, Yes oriented to person, Yes oriented to place and Yes oriented to time Chest: COMMONS NORMALS: normal inspection of the chest and normal palpation of entire chest wall CHEST: Yes Symmetrical chest wall rise Resp: COMMON NORMALS: normal respiratory effort, No retractions, No use of accessory muscles and clear to auscultation bilaterally EFFORT & INSPECTION: Yes symmetric chest movement AUSCULTATION: clear to auscultation bilaterally Cardio: COMMON NORMALS: regular rate, regular rhythm, S1 normal heart sound present, S2 normal heart sound present, No gallops present (Cardio), No clicks present (Cardio), No murmurs present (Cardio) and No rub (Cardio) RATE: r egular rate RHYTHM: regular rhythm HEART SOUNDS: S1 normal heart sound present and S2 normal heart sound present PERIPHERAL PULSES: radial pulses present Extremity: COMMON NORMALS: no pedal edema Neuro: COMMON NORMALS: patient oriented x3 and moves all extremities S ENSORIUM/ORIENTATION: Yes oriented to person, Yes oriented to place and Yes oriented to time Data 02/26/25 03:48 02/26/25 03:48 Micro: Microbiology 02/25/25 21:11 Blood Culture - Preliminary Blood SPECIMEN COLLECTED 02/25/25 09:07 Blood Culture - Preliminary Blood SPECIMEN COLLECTED A&P Assessment and plan 1. CAD (coronary artery disease): 2. Chest pain: 3. HTN (hypertension), benign: 4. Diabetes mellitus: 5. ESRD (end stage renal disease): Plan: Dobutamine stress test was normal, chest pain appears to be non cardiac given normal stress test, flat tropnin trend, no ischemic EKG changes. She can discharge home today if okay with hospitalist service. PDMP PDMP Reviewed: Not Reviewed Attestations 2 Medical Necessity Statement*: discharge home Coding Level of Care Code Acute Code for [facility] Fwd Diagnoses CAD (coronary artery disease) I25.10 Chest pain R07.9 HTN (hypertension), benign I10 Diabetes mellitus E11.9 ESRD (end stage renal disease) N18.6
--- NOTE | 2025-02-26 09:00 | P.PN_ITS ---
Subjective 2 Subjective: The patient was seen and examined. Patient go for stress test today. Patient is feeling better blood pressure improved. No nausea vomiting no diarrhea. No headaches. Medications: Reviewed: Yes Medication Review Details: Current Medications Albuterol Sulfate (Albuterol 2.5 Mg/3 Ml Neb) 2.5 mg INHALATION Q4H.RESPIRATORY PRN PRN Reason: SHORTNESS OF BREATH Aspirin (Aspirin 81 Mg Ec Tablet) 81 mg PO QAM [facility] Last Admin: 02/26/25 06:25 Dose: Not Given Atorvastatin Calcium (Atorvastatin 40 Mg Tablet) 40 mg PO BEDTIME [facility] Last Admin: 02/25/25 20:26 Dose: Not Given Atropine Sulfate (Atropine 0.1 Mg/Ml Syr 10 Ml) 0.5 mg IVP NOW PRN PRN Reason: See dose instructions Stop: 02/26/25 10:43 Last Admin: 02/25/25 13:50 Dose: 0.5 mg Bumetanide (Bumetanide 1 Mg Tablet) 1 mg PO BID [facility] Last Admin: 02/25/25 18:31 Dose: 1 mg Clopidogrel Bisulfate (Clopidogrel 75 Mg Tablet) 75 mg PO DAILY [facility] Last Admin: 02/25/25 08:12 Dose: 75 mg Diphenhydramine HCl (Diphenhydramine 50 Mg/Ml Sdv 1ml) 50 mg IVP ONCE PRN PRN Reason: dialysis Last Admin: 02/25/25 10:32 Dose: 50 mg Docusate Sodium (Docusate Sodium 100 Mg Capsule) 100 mg PO BID@0500,1700 [facility] Last Admin: 02/26/25 06:16 Dose: Not Given Escitalopram Oxalate (Escitalopram 10 Mg Tablet) 20 mg PO DAILY [facility] Last Admin: 02/25/25 08:13 Dose: 20 mg Esmolol HCl (Esmolol 100 Mg/10 Ml Sdv) 5 mg IVP Q2M PRN PRN Reason: See dose instructions Stop: 02/26/25 10:44 Folic Acid (Folic Acid 1 Mg Tablet) 1 mg PO DAILY [facility] Last Admin: 02/25/25 08:13 Dose: Not Given Glucagon (Glucagon 1 Mg/Ml Kit 1 Ml) 1 mg IM ONCE PRN; Protocol PRN Reason: Adult Acute Hypoglycemia Nursing Prot. Hydralazine HCl (Hydralazine 25 Mg Tablet) 12.5 mg PO BID [facility] Last Admin: 02/25/25 17:12 Dose: Not Given Dextrose (D5w) 500 mls @ 0 mls/hr IV ONCE PRN; Protocol PRN Reason: Adult Acute Hypoglycemia Prot Dextrose (D10w) 125 mls @ 750 mls/hr IV PRN PRN; Protocol PRN Reason: Adult Acute Hypoglycemia Nursing Protocol Dextrose (D10w) 250 mls @ 1,000 mls/hr IV PRN PRN; Protocol PRN Reason: Adult Acute Hypoglycemia Nursing Protocol Sodium Chloride (Sodium Chloride 0.9%) 1,000 mls @ 0 mls/hr IV .Q0M PRN PRN Reason: hypotension or symptomatic Albumin Human (Albumin) 12.5 gm in 50 mls @ 60 mls/hr IV PRN PRN PRN Reason: Hypotension and/or symptomatic Last Infusion: 02/23/25 12:04 Dose: Infused Dobutamine HCl 200 mg/ Sodium (Chloride) 50 mls @ 0 mls/hr IV .Q0M PRN; Protocol PRN Reason: per protocol Stop: 02/26/25 10:43 Last Titration: 02/25/25 13:53 Dose: Infused Piperacillin Sod/Tazobactam (Sod 3.375 gm/ Sodium Chloride) 50 mls @ 12.5 mls/hr IV Q12H [facility] Last Admin: 02/26/25 06:21 Dose: 12.5 mls/hr Insulin Human Lispro (Insulin Lispro 100 Unit/1 Ml) 0 unit SUBCUT WM&BEDTIME [facility]; Protocol Last Admin: 02/26/25 08:38 Dose: Not Given Lisinopril (Lisinopril 20 Mg Tablet) 40 mg PO DAILY [facility] Metoclopramide HCl (Metoclopramide 5 Mg/Ml Sdv 2 Ml) 5 mg IVP Q6H PRN PRN Reason: NAUSEA AND VOMITING Last Admin: 02/25/25 20:38 Dose: 5 mg Metoprolol Tartrate (Metoprolol Tartrate 1 Mg/1 Ml Sdv 5 Ml) 5 mg IVP Q2M PRN PRN Reason: See dose instructions Stop: 02/26/25 10:44 Last Admin: 02/25/25 13:58 Dose: 5 mg Morphine Sulfate (Morphine 4 Mg/Ml Sdv 1 Ml) 4 mg IVP Q6H PRN PRN Reason: SEVERE PAIN Last Admin: 02/25/25 20:37 Dose: 4 mg Nitroglycerin (Nitroglycerin 1 Gm/Inch Oint Pkt) 1 inch TOPICAL Q6H [facility] Last Admin: 02/26/25 06:16 Dose: Not Given Nitroglycerin (Nitroglycerin 0.4 Mg Sublingual Tablet) 0.4 mg SUBLINGUAL Q5M PRN PRN Reason: CHEST PAIN Stop: 02/26/25 10:44 Ondansetron HCl (Ondansetron 2 Mg/Ml Sdv 2 Ml) 4 mg IVP Q4H PRN PRN Reason: NAUSEA AND VOMITING Last Admin: 02/25/25 06:13 Dose: 4 mg Pantoprazole Sodium (Pantoprazole 40 Mg Sdv) 40 mg IVP Q12H [facility] Last Admin: 02/25/25 20:26 Dose: Not Given Scopolamine (Scopolamine 1 Mg Patch) 1 patch TRANSDERMA Q3D [facility] Last Admin: 02/24/25 23:11 Dose: 1 patch Sevelamer Carbonate (Sevelamer 800 Mg Tablet) 800 mg PO TID [facility] Last Admin: 02/25/25 20:26 Dose: Not Given Vitals/I&O/Wt Last Vital Signs Temp 98.0 F 02/26/25 07:37 Pulse 79 02/26/25 07:37 Resp 18 02/26/25 07:37 BP 129/61 02/26/25 07:37 Pulse Ox 99 02/25/25 20:37 O2 Del Method Room Air 02/25/25 15:42 O2 Flow Rate 2 02/24/25 08:15 02/25/25 02/26/25 02/26/25 22:59 06:59 14:59 Intake Total 650 / 736.133 Output Total 2296 / 2476 Balance -1646 / -1739.867 Weight last 48 hrs Weight 65.969 kg Weight 67.585 kg Weight 69.655 kg Physical Exam 2 Narrative: Vital signs noted. Blood pressure improved. Patient sitting up in bed no apparent distress no longer using any oxygen HEENT normocephalic atraumatic. Neck supple Lungs clear bilateral. Heart positive S1-S2 positive regular. Abdomen is soft positive bowel sounds. Extremities positive left AV fistula. 1+ leg edema is improving mostly just at the ankles. Neuro awake alert oriented x 3 Data 02/26/25 03:48 02/26/25 03:48 Micro: Microbiology 02/25/25 21:11 Blood Culture - Preliminary Blood SPECIMEN COLLECTED 02/25/25 09:07 Blood Culture - Preliminary Blood SPECIMEN COLLECTED A&P Assessment and plan 1. ESRD (end stage renal disease): 39-year-old lady history of ESRD diastolic dysfunction hypertension type 1 diabetes. 1. End-stage renal disease: Continue dialysis Saturday and Saturday. 2. Patient has known coronary artery disease diabetes ESRD. Patient also has diastolic dysfunction/heart failure preserved EF. Patient is being evaluated by cardiology. Patient is for a stress test this morning 3. Hypertension improving continue current medications 4. Diabetes per primary. Sugars are relatively well-controlled unlikely the cause of her nausea however may have underlying diabetic gastroparesis 5. [id number] Epogen acceptable. Aim for hemoglobin 9-10 with question of coronary artery disease 6. Renal bone mineral metabolism will use a phosphorus binder And can use the vitamin D analog on dialysis, check PTH 7. Elevated BNP heart failure preserved EF coronary artery disease risk factors. Remove fluids on dialysis Medications reviewed Seen and examined with aid of a nurse using A/V equipment. Patient consented to telehealth time to hemodialysis Plan: See above PDMP PDMP Reviewed: Not Reviewed Attestations 2 Medical Necessity Statement*: ESRD diabetes coronary artery disease for stress test today. Time Spent in Patient Care: 16 - 35 minutes (>than 50% of time sp ent in counselling and/or direct pt care on unit) . Coding Level of Care Code Acute Code for [facility] Fwd Diagnoses ESRD (end stage renal disease) N18.6
[2025-02-26 09:13] VITALS: RESP 13; O2SAT 93
[2025-02-26] MEDS: pantoprazole 40 mg SDV IVP (09:13)
[2025-02-26] MEDS: morphine 4 mg/mL SDV 1 mL IVP (09:13)
[2025-02-26] MEDS: metoclopramide 5 mg/mL SDV 2 mL IVP (09:13)
--- NOTE | 2025-02-26 09:27 | P.DS_ITS ---
Discharge Providers Date of Admission: 02/22/25 07:54 Date of Discharge: February 26, 2025 Attending Provider at Admission: Ana Luisa Casper MD Attending Provider at Discharge: Aleksandra Garcia MD Primary Care Provider: SUZANNE Dias Diagnoses at Discharge Discharge Diagnosis 1. CAD (coronary artery disease): 2. Chest pain: 3. HTN (hypertension), benign: 4. 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 ESRD (end stage renal disease): Reason for Visit Reason for Visit: SOB Hospital Course Hospital Course Patient presented to the hospital with CHF exacerbation and was dialyzed. Potassium was also high upon admission for which she was given insulin in the ER. She developed chest pain during hospitalization for which cardiology was consulted. Dobutamine stress echo was done which did not show evidence of ischemia. Patient was discharged home in stable condition after being evaluated by cardiology. Patient to follow-up for routine dialysis outpatient. Physical Exam Narrative: General: Alert oriented x3, HEENT: Normocephalic, atraumatic, EOMI, Respiratory: Clear to auscultation bilaterally with no rhonchi. Cardio S1-S2, regular rate and rhythm at this time. GI: Abdomen soft, nontender,bowel sounds + Extremities: Trace edema bilateral lower extremities Discharge Data Studies Completed and Pending Completed Studies During Hospitalization Category Date Time Status Cardiac Stress Test Request Routine Exams 02/25/25 10:44 Draft XR chest 1V portable [id number] Stat Exams 02/22/25 04:52 Completed XR chest 1V portable [id number] Stat Exams 02/24/25 11:39 Completed CV. echo limited [id number] Routine Ultrasound 02/24/25 11:33 Completed CV. echo stress w contra [id number] Routine Ultrasound 02/25/25 10:46 Completed Pending at discharge Category Date Time Status Cardiac Stress Test MIBI [Sestamibi Stress Test Request Exams 02/24/25 11:33 Ordered ] Routine Blood Culture Stat Lab 02/25/25 21:11 Results Complete Blood Count w/Auto AM LABS Lab 02/27/25 04:00 Ordered Complete Blood Count w/Auto AM LABS Lab 02/28/25 04:00 Ordered Comprehensive Metabolic Panel AM LABS Lab 02/27/25 04:00 Ordered Comprehensive Metabolic Panel AM LABS Lab 02/28/25 04:00 Ordered Magnesium AM LABS Lab 02/27/25 04:00 Ordered Magnesium AM LABS Lab 02/28/25 04:00 Ordered Phosphorus AM LABS Lab 02/27/25 04:00 Ordered Phosphorus AM LABS Lab 02/28/25 04:00 Ordered Sputum Culture and Gram Stain Stat Lab 02/25/25 17:42 Uncollected Radiology Impressions Chest X-Ray 02/24/25 11:39 Impression: Negative chest. Laboratory Results WBC 10.66 10^3/uL (3.29-11.43) 02/26/25 03:48 Corrected WBC Cancelled 02/23/25 09:43 RBC 2.98 10^6/uL (3.85-5.65) L 02/26/25 03:48 Hgb 9.50 g/dL (11.27-16.99) L 02/26/25 03:48 Hct 29.9 % (36-47) L 02/26/25 03:48 MCV 100.3 fl (85-98) H 02/26/25 03:48 MCH 31.9 pg (27-33) 02/26/25 03:48 MCHC 31.8 g/dL (30-55) 02/26/25 03:48 RDW 14.4 % (12.1-15.1) 02/26/25 03:48 Plt Count 205 10^3/cmm (157-399) 02/26/25 03:48 MPV 10.6 fL (7.4-10.4) H 02/26/25 03:48 Gran % Cancelled 02/23/25 09:43 Neut % (Auto) 79.3 % 02/26/25 03:48 Lymph % (Auto) 11.6 % 02/26/25 03:48 [place] % (Auto) 8.2 % 02/26/25 03:48 Eos % (Auto) 0.1 % 02/26/25 03:48 Baso % (Auto) 0.4 % 02/26/25 03:48 Neut # (Auto) 8.46 10^3/uL (1.8-7.7) H 02/26/25 03:48 Lymph # (Auto) 1.2 10^3/uL (0.8-4.8) 02/26/25 03:48 [place] # (Auto) 0.9 10^3/uL (0.2-0.9) 02/26/25 03:48 Eos # (Auto) 0.0 10^3/uL (0.0-0.8) 02/26/25 03:48 Baso # (Auto) 0.0 10^3/uL (0.0-0.1) 02/26/25 03:48 Absolute Gran (auto) Cancelled 02/23/25 09:43 Nucleated RBC % (auto) 0 % 02/26/25 03:48 Nucleated RBCs # 0.0 /100WBC 02/26/25 03:48 APTT 35.8 SECONDS (23.9-36.7) D 02/25/25 07:18 Specimen Type Arterial 02/22/25 07:57 Sample Site Brachial, right 02/22/25 07:57 ABG pH 7.39 (7.35-7.45) 02/22/25 07:57 ABG pCO2 45.5 mmHg (35-45) H 02/22/25 07:57 ABG pO2 70.4 mmHg (80.0-100.0) L 02/22/25 07:57 ABG PO2/FiO2 Ratio 335 02/22/25 07:57 ABG HCO3 27.2 mmol/L (22-26) H 02/22/25 07:57 ABG Base Excess 1.9 mmol/L (-2.0-2.0) 02/22/25 07:57 Braulio Test N/a 02/22/25 07:57 Hematocrit 29.6 % (37-47) L 02/22/25 07:57 O2 Delivery Device Room air 02/22/25 07:57 FiO2 21.0 % 02/22/25 07:57 Share Holder ID [email or web address] 02/22/25 07:57 Sodium 140 mmol/L (136-145) 02/26/25 03:48 Potassium 5.0 mmol/L (3.5-5.1) 02/26/25 03:48 Chloride 97 mmol/L (98-107) L 02/26/25 03:48 Carbon Dioxide 26 mmol/L (22-29) 02/26/25 03:48 Anion Gap 22.0 (5-19) H 02/26/25 03:48 BUN 37 mg/dL (6-20) H 02/26/25 03:48 Creatinine 5.1 mg/dL (0.5-0.9) H 02/26/25 03:48 GFR Calculation 9.5 mL/min (90-130) L 02/26/25 03:48 Glucose 175 mg/dL (65-115) H 02/26/25 03:48 POC Glucose 167 mg/dL (70-110) H 02/26/25 08:44 Calculated Osmolality 303 mOsm/kg (285-295) H 02/26/25 03:48 Calcium 9.5 mg/dL (8.5-10.5) 02/26/25 03:48 Phosphorus 5.8 mg/dL (2.5-4.5) H 02/26/25 03:48 Magnesium 2.5 mg/dL (1.7-2.3) H 02/26/25 03:48 Total Bilirubin 0.4 mg/dL (0.15-1.2) 02/26/25 03:48 AST 13 U/L (0-32) 02/26/25 03:48 ALT 15 U/L (0-33) 02/26/25 03:48 Alkaline Phosphatase 196 U/L (35-105) H 02/26/25 03:48 Troponin T Baseline 172 ng/L (0-10) H* 02/24/25 10:37 Troponin T 120 Minute 172.6 ng/L (0-10) H 02/24/25 12:01 Delta Troponin T 0.6 ABS# (0-10) 02/24/25 12:01 Troponin T Hi Sens 6Hr 167.2 ng/L (0-10) H 02/24/25 16:59 Troponin T Hi Sens 6Hr Delta -4.8 ng/L (0-12) L 02/24/25 16:59 NT-Pro-B Natriuret Pep 05835 pg/mL (0-125) H 02/24/25 10:37 Total Protein 8.1 g/dL (6.6-8.7) 02/26/25 03:48 Albumin 4.0 g/dL (3.5-5.2) 02/26/25 03:48 Globulin 4.1 g/dL (1.3-4.6) 02/26/25 03:48 Adenovirus (PCR) Not detected (NOT DETECT) 02/22/25 05:39 C. pneumoniae DNA (PCR) Not detected (NOT DETECT) 02/22/25 05:39 Coronavirus 229E (PCR) Not detected (NOT DETECT) 02/22/25 05:39 Human Metapneumovir PCR Not detected (NOT DETECT) 02/22/25 05:39 Influenza A (H1) PCR Not detected (NOT DETECT) 02/22/25 05:39 Influ A (H1/09) PCR Not detected (NOT DETECT) 02/22/25 05:39 Influenza A (H3) PCR Not detected (NOT DETECT) 02/22/25 05:39 Influenza Type A (PCR) Not detected (NOT DETECT) 02/22/25 05:39 Influenza Type B (PCR) Not detected (NOT DETECT) 02/22/25 05:39 M. pneumoniae (PCR) Not detected (NOT DETECT) 02/22/25 05:39 Parainfluenza 1 (PCR) Not detected (NOT DETECT) 02/22/25 05:39 Parainfluenza 2 (PCR) Not detected (NOT DETECT) 02/22/25 05:39 Parainfluenza 3 (PCR) Not detected (NOT DETECT) 02/22/25 05:39 Parainfluenza 4 (PCR) Not detected (NOT DETECT) 02/22/25 05:39 RSV Type A (PCR) Not detected (NOT DETECT) 02/22/25 05:39 RSV Type B (PCR) Not detected (NOT DETECT) 02/22/25 05:39 Entero/Rhino (PCR) Not detected (NOT DETECT) 02/22/25 05:39 SARS-CoV-2 (PCR) Not detected (NOT DETECT) 02/22/25 05:39 Vitals Last Vital Signs Temp 98.0 F 02/26/25 07:37 Pulse 79 02/26/25 07:37 Resp 13 02/26/25 09:13 BP 129/61 02/26/25 07:37 Pulse Ox 93 02/26/25 09:13 O2 Del Method Room Air 02/25/25 15:42 O2 Flow Rate 2 02/24/25 08:15 Discharge Plan Discharge Patient Disposition: Home Condition: Stable Prescriptions: New isosorbide mononitrate 30 mg tablet extended release 24 hr 30 mg PO DAILY Qty: 30 0RF Continued (DME) AFO brace See Rx Instructions .Route .MEDSUPPLY Qty: 1 0RF Rx Instructions: As directed [place] edelmira arrieta [place] [facility] with 3 inserts See Rx Instructions .Route .MEDSUPPLY Qty: 1 0RF Rx Instructions: As directed to the shoe guys [place] [facility] Dexcom G6 Orthotic/Prosthetic Practitioner Misc See Rx Instructions .Route Qty: 1 0RF Rx Instructions: As directed [place] Dexcom G6 Sensor Device See Rx Instructions .Route Qty: 3 0RF Rx Instructions: As directed [place] [facility] Dexcom G6 Transmitter Device See Rx Instructions .Route Qty: 1 0RF Rx Instructions: As directed atorvastatin 40 mg tablet 40 mg PO BEDTIME 30 Days Qty: 30 0RF aspirin 81 mg tablet,delayed release (DR/EC) 81 mg PO QAM 30 Days Qty: 30 0RF amlodipine 5 mg Tablet 5 mg PO DAILY Qty: 30 0RF bumetanide 1 mg tablet See Rx Instructions .ROUTE .COMPLEX Qty: 60 0RF Rx Instructions: TAKE 1 TABLET BY MOUTH twice DAILY ON NON-DIALYSIS DAYS sevelamer carbonate 800 mg Tablet 800 mg PO TID Qty: 90 0RF gabapentin 100 mg Capsule 100 mg PO TID clopidogrel 75 mg tablet 75 mg PO DAILY insulin aspart U-100 [Novolog FlexPen U-100 Insulin] 100 unit/mL (3 mL) insulin pen See Rx Instructions .ROUTE .COMPLEX Qty: 15 0RF Rx Instructions: Inject 3 times daily, subcut, after meals, based on low-dose sliding scale. tizanidine 4 mg tablet 4 mg PO Q6H PRN (Reason: Muscle Spasm) hydralazine 25 mg tablet 12.5 mg PO BID folic acid 1 mg tablet 1 mg PO DAILY escitalopram oxalate 20 mg tablet 20 mg PO DAILY nitroglycerin 0.4 mg tablet, sublingual See Rx Instructions .ROUTE .COMPLEX Rx Instructions: DISSOLVE ONE TABLET UNDER THE TONGUE EVERY 5 MINUTES NEEDED FOR CHEST PAIN. DO NOT EXCEED A TOTAL OF 3 DOSES IN 15 MINUTES. Discontinued nifedipine 90 mg tablet extended release 90 mg PO DAILY No Action oxycodone 5 mg tablet 5 mg PO Q8H PRN (Reason: pain) Qty: 20 0RF Discharge Order = DC NOW: Discharge Order (Routine); Ordered 02/26/25 Ordered By: Aleksandra Garcia Referrals: Elizabeth Dougherty FNP [Primary Care Provider, Unknown] - 03/03/25 11:20 am Riccardo Burch M.D [Physician, Cardiology] - 1 month Referral Note: This appt will be scheduled when pt goes to Vance Renteria MD [Physician, Cardiology] - 03/08/25 11:00 am Discharge Diet: Cardiac and Diabetic Discharge Activity: Resume usual activity Patient Instructions: Isosorbide Mononitrate (By mouth) (Imdur, Imdur ER, Ismo), End Stage Kidney Disease (DC), Chest Pain Stoplight, Opioid Safety, Patient Portal & Flaca Instructions Activity Restrictions/Additional Instructions: You are scheduled to have Dialysis tomorrow at 1:10 pm. Please come to the clinic at 12:20 AM. 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
[2025-02-26 10:20] VITALS: BP 125/71; PULSE 71; O2SAT 97
--- NOTE | 2025-02-26 12:59 | PC.SOCIAL ---
*IMM UPDATE* Patient received an updated copy of the Important message from Medicare. Initialed, dated and placed in chart.
== END 2025-02-26 10:29 | disposition home or self-care (01) | DRG 291 ==
LOC: ER 05:34 → MEDSURG 06:27 → CSU 02-24 14:00
PROVIDERS: Internal Medicine; Internal Medicine Nephrology; Admitting Provider Internal Medicine; Emergency Provider Emergency Medicine; PCP Nurse Practitioner Family; Visit Provider Internal Medicine
DX: I13.2 Hypertensive heart and chronic kidney disease with heart failure and with stage 5 chronic kidney disease, or end stage renal disease (principal); I50.31 Acute diastolic (congestive) heart failure; N18.6 End stage renal disease; E10.22 Type 1 diabetes mellitus with diabetic chronic kidney disease; E10.40 Type 1 diabetes mellitus with diabetic neuropathy, unspecified; E10.43 Type 1 diabetes mellitus with diabetic autonomic (poly)neuropathy; K31.84 Gastroparesis; I25.10 Atherosclerotic heart disease of native coronary artery without angina pectoris; E87.5 Hyperkalemia; R07.9 Chest pain, unspecified; J44.9 Chronic obstructive pulmonary disease, unspecified; E78.5 Hyperlipidemia, unspecified; K76.0 Fatty (change of) liver, not elsewhere classified; N30.90 Cystitis, unspecified without hematuria; F41.9 Anxiety disorder, unspecified; D63.1 Anemia in chronic kidney disease; Z79.82 Long term (current) use of aspirin; Z79.02 Long term (current) use of antithrombotics/antiplatelets; Z79.4 Long term (current) use of insulin; Z99.2 Dependence on renal dialysis; Z95.5 Presence of coronary angioplasty implant and graft; Z87.891 Personal history of nicotine dependence; Z86.16 Personal history of COVID-19; Z87.01 Personal history of pneumonia (recurrent); Z87.440 Personal history of urinary (tract) infections; Z90.2 Acquired absence of lung [part of]; Z89.421 Acquired absence of other right toe(s)
CPT/HCPCS: 36415; 36416; 36600; 71045; 80048; 80053; 82803; 82962; 83735; 83880; 84100; 84484; 85025; 85730; 87040; 87486; 87581; 87633; 90935; 93005; 93308; 93350; 93352; 94640; 96372; 96374; 96375; 99285; G0378; J0360; J0461; J1200; J1250; J1644; J1815; J2270; J2405; J2470; J2543; J2765; J3490; J7050; J9999; P9047

== ENCOUNTER 2025-02-28 22:15 | Emergency (ER) | payer MEDICARE, MEDICAID, SELFPAY ==
--- OUTSIDE RECORDS SUMMARY | 2025-02-28 22:17 | XMS_ITS | Clinical Summary ---
Author Organization [employer] Address [address] [facility] Attn: [place] [address] Care Team Providers Care Autotransfusionist Name Role Phone Shravan Jones DO Primary [...] subcutaneous injection. Active naloxone (NARCAN) 4 mg/spray [place], Non-Aerosol EMERGENCY USE ONLY: Administer 1 spray [...] regarding vascular access for dialysis for ESRD ([facility]) Take 1 Tablet (5 mg) by mouth [...] troponin 09/22/2023 Coronary artery disease invo lving [place] coronary artery of [place] heart without angina pectoris 09/21/2023 End stage [...] Encounters Date Type Department Care Team Description 02/23/2025 External Device Data [facility]STRACTION Provider, Abstract 02/09/2025 External Device Data [facility]STRACTION Provider, Abstract 02/02/2025 External Device Data [facility]STRACTION Provider, Abstract 01/12/2025 External Device Data [facility]STRACTION Provider, Abstract 12/30/2024 Orders Only [facility]- [address] [place] [phone] Elizabeth Dougherty FNP Fatty liver (Primary Dx) 12/15/2024 External Device Data [facility] ABSTRACTION Provider, Abstract 12/04/2024 7:00 AM CDT - 12/04/2024 11:59 PM CDT Hospital Encounter [facility] Interventional Radiology [address] [facility] [place] [phone] Chey Navas MD Birlew, Ryan Avery, MD Discharge Disposition: Home or Self Care 12/03/[address] 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 [place] [address] Abel Menon, DO [address] [place] [address] Health Maintenance Due Date Last Done [...] 10/11/1999, 09/06/1999 Medical Devices Implanted Type Area Dairy Cattle Farm Manager Device Identifier Shelf Expiration Date Model / Serial / Lot Max Rosa [id number] - [id number] Implanted:Qty : 2 on 12/17/2016 by Deandre Alan MD Biological Left: Lung CR BARD- [employer]OL INC 09/19/2019 [id number] / / [id number] Cath Dialysis Glidepath 14.5fr 24cm Std [id number] - [id number] Implanted:Qty : 1 on 03/18/2024 by Asif Mcclellan MD at [facility] Catheter Right: Chest BARD ANGEL VASC 09/21/2025 [id number] / / [id number] Clip Ligating Horizon Red 820036 - Csc - [id number] Implanted:Qty : 1 on 08/10/2024 by Chato Fitch MD at [facility] Clip Left: Arm TELEFLEX INC [id number] 05/16/2029 936164 / / [id number] Clip Ligating Horizon Med Ti 605765 - Csc - [id number] Implanted:Qty : 1 on 08/10/2024 by Chato Fitch MD at [facility] Clip Left: Arm TELEFLEX- WECK CLOSURE SYS [id number] 03/31/2029 [id number] / / [id number] Contract Engineer Ligaclip Sml Mcs20 - [id number] Implanted:Qty : 1 on 08/10/2024 by Chato Fitch MD at [facility] Clip Left: Arm J&J- [employer]ICON [employer] [id number] 03/23/2029 MCS20 / / [id number] Closure Perclose Prostyle Sut Mediate 15112-15 - [id number] Implanted:Qty : 1 on 09/24/2023 by Janell Beauchamp MD at [facility] Closure Device N/A: Groin LOVE- VASC DEVICE [id number] 06/23/2025 04960-69 / / [id number] Closure Perclose Prostyle Sut Mediate 67207-19 - [id number] Implanted:Qty : 1 on 10/24/2023 by Janell Beauchamp MD at [facility] Closure Device Right: Groin LOVE- VASC DEVICE [id number] 07/24/2025 34929-44 / / [id number] Oil Slc 8.5ml [id number] - [id number] Implanted:Qty : 1 on 06/23/2024 by Janey Carrera MD at [facility] National Eye Right: Eye [employer]INA LAB 12/21/2026 [id number] / [id number] / [id number] Graft Vasc Propaten 4-0vvy62bp B130988h - [id number] Implanted:Qty : 1 on 08/10/2024 by Chato Fitch MD at [facility] Graft Left: Arm [employer] [id number] 05/21/2027 [id number] / [id number] / Agent Hemostat Surgicel 2x3in 1952s - [id number] Implanted:Qty : 1 on 08/10/2024 by Chato Fitch MD at [facility] Hemostatic Left: Arm J&J- ETHICON INC [id number] 12/21/20281952S / / [id number] Hemostatic Surgiflo 8ml W/ Thrombin 2994 - [id number] Implanted:Qty : 1 on 08/10/2024 by Chato Fitch MD at [facility] Hemostatic Left: Arm J&J- ETHICON INC [id number] 10/21/2025 2994 / / [id number] Agent Hemostat Surgicel 2x3in 1952s - [id number] Implanted:Qty : 1 on 08/10/2024 by Chato Fitch MD at [facility] Hemostatic Left: Arm J&J- ETHICON INC [id number] 12/21/20281952S / / [id number] Stent Synergy Xd 3.0x48mm Evrlms Elut [id number] - [id number] Implanted:Qty : 1 on 09/24/2023 by Janell Beauchamp MD at [facility] Stent N/A: Coronary EiRx Therapeutics GENEVIEVE [id number] 03/31/2025 [id number] / / [id number] Stent Synergy Xd 2.45k07ny Evrlms Elut [id number] 0 - [id number] Implanted:Qty : 1 on 10/24/2023 by Janell Beauchamp MD at [facility] Stent Left: Coronary [employer] GENEVIEVE [id number] 08/19/2024 [id number] 220 / / [id number] Control Implant Funmi Procedures Procedure Name Priority Date/Time Associated Diagnosis Comments IR FISTULOGRAM Routine 12/04/2024 9:05 AM CDT ESRD (end stage renal disease) ([facility]) LIPID PANEL Routine 09/21/2023 6:47 PM CDT [...] dialysis. DIAGNOSIS: ESRD (end stage renal disease) ([facility]). Medications: Fentanyl and versed were titrated to effect. Moderate (conscious) sedation for this procedure was performed with continuous physician supervision. Medical history, physical exam, drug dosages, routes of drug administration, monitoring data, and precise times of service are documented in the medical record on the [facility]-approved form, 'Sedative/Analgesic Administration for Diagnostic and Therapeutic [...] transition dilator is exchanged for a 6 Canadian vascular sheath. An 8 mm angioplasty balloon [...] dialysis. DIAGNOSIS: ESRD (end stage renal disease) ([facility]). Medications: Fentanyl and versed were titrated to effect. Moderate (conscious) sedation for this procedure was performed with continuous physician supervision. Medical history, physical exam, drug dosages, routes of drug administration, monitoring data, and precise times of service are documented in the medical record on the [facility]-approved form, 'Sedative/Analgesic Administration for Diagnostic and Therapeutic [...] transition dilator is exchanged for a 6 [place] vascular sheath. An 8 mm angioplasty balloon [...] (ABNORMAL) LIPID PANEL (09/21/2023 6:47 PM CDT) [facility] CHOLESTEROL 96 <200 mg/dL 09/21/2023 10:29 PM CDT [facility] TRIGLYCERIDE 164(H) <150 mg/dL 09/21/2023 10:29 PM CDT [facility] HDL 36(L) 40 - 59 mg/dL 09/21/2023 10:29 PM CDT [facility] LDL CALCULATED 27 <100 mg/dL 09/21/2023 10:29 PM CDT [facility] NON-HDL CHOLESTEROL 60 <130 mg/dL 09/21/2023 10:29 PM T [facility] Blood Venipuncture / Unknown 09/21/2023 6:47 PM CDT 09/21/2023 7:10 PM CDT [facility] - 09/21/2023 10:29 PM CDT [...] ORDERABLES Final R esult Performing Organization Address City/[facility]/ZIP Co de Phone Number [facility] [facility] CLIA # [id number] [address] [address] * (ABNORMAL) HEMOGLOBIN A1C (09/21/2023 6:46 PM CDT) HEMOGLOBIN A1C 6.8(H) <=5.6 % 09/23/2023 9:24 AM CDT [facility] EST. AVG GLUCOSE, A1C 148 mg/dL 09/23/2023 9:24 AM CDT [facility] Blood Venipuncture / Unknown 09/21/2023 6:46 PM CDT 09/21/2023 7:08 PM CDT Narrative [facility] - 09/23/2023 9:24 AM CDT HGB A1C INTERPRETATION NORMAL: <5.7% PRE-DIABETES: 5.7 - 6.4% DIABETES: 6.5% OR GREATER Luiz Lacy MD CHEMISTRY ORDERABLES Final R esult Performing Organization Address [facility] Co de Phone Number [facility] [facility] CLIA # [id number] [address] [address] from Last 3 Months or Most Recently Relevant to Health Maintenance Insurance MEDICAID [place] MEDICARE PART A [place] B Advance Directives For more information, please contact: [phone] * Full Code (Latest Code Status on File) Date Activated Date Inactivated Comments 10/24/2023 2:34 PM 10/25/2023 11:47 AM * Full Code Date Activated Date Inactivated Comments 10/24/2023 9:13 AM 10/24/2023 2:34 PM * Full Code Date Activated Date Inactivated Comments 09/24/2023 3:14 PM 09/25/2023 9:51 PM * Full Code Date Activated Date Inactivated Comments 09/21/2023 5:50 PM 09/24/2023 3:14 PM Care Teams Autotransfusionist Relationship Specialty Start Date End Date Shravan Jones DO [address] [place] [phone] PCP - General Family Practice 12/04/16
--- OUTSIDE RECORDS SUMMARY | 2025-02-28 22:17 | XMS_ITS | Encounter Summary ---
Author Organization [facility] Address [address] [place] [address] Care Team Providers Care Development Director Name Role Phone Shravan Jones DO Primary Care Provider Encounter Details Date Type Department Care Team (Late st Contact Info) Description 12/28/2016 Lab Requisition [facility] [address] [place] [address] David Ortega MD [address] [place] [address] Social History Tobacco Use Types Packs/Day Years Used Date Smoking Tobacco: Every Day Cigarettes Comments:pt lethargic Comments Unknown Sex and Gender Information Value Date Recorded Sex Assigned at Not on file 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 Gender Identity Not on file Sexual [...] - 4.9 mg/dL 12/28/2016 5:42 AM CDT [facility] Blood Collection / Unknown 12/28/2016 2:39 AM CDT 12/28/2016 5:01 AM CDT David Ortega MD CHEMISTRY ORDERABLES Final Res ult Performing Organization Address [facility] Co de Phone Number [facility] CLIA# [id number] [address] [place] [phone] * MAGNESIUM LEVEL (12/28/2016 2:39 AM CDT) [facility] MAGNESIUM 1.6 1.6 - 2.6 mg/dL 12/28/2016 5:42 AM CDT [facility] Blood Collection / Unknown 12/28/2016 2:39 AM CDT 12/28/2016 5:01 AM CDT Narrative [facility] - 12/28/2016 5:42 AM CDT Due to Rail Track Maintainer update, MG+ reference range has changed from 1.8 - 2.4 mg/dL to the new reference range of 1.6 - 2.6 mg/dL. This will have limited patient impact. David Ortega MD CHEMISTRY ORDERABLES Final Res ult Performing Organization Address [facility] Co de Phone Number [facility] CLIA# [id number] [address] [place] [phone] * PROTIME-INR (12/28/2016 2:39 AM CDT) [facility] PROTIME 15.0 12.3 - 15.5 Seconds 12/28/2016 5:16 AM CDT [facility] INR 1.1 0.8 - 1.2 12/28/2016 5:16 AM CDT [facility] Blood Collection / Unknown 12/28/2016 2:39 AM CDT 12/28/2016 5:01 AM CDT [place] [facility] - 12/28/2016 5:16 AM CDT Expected Values for INR: DVT/PE Goal INR 2.5; range 2.0 - 3.0 Valve Replacement Tissue Goal INR 2.5; range 2.0 - 3.0 Valve Replacement Mechanical Goal INR 3.0; range 2.5 - 3.5 POST-ME Goal INR 2.5; range 2.0 - 3.0 or Goal INR 3.0; range 2.5 - 3.5 Atrial Fibrillation Goal INR 2.5; range 2.0 - 3.0 Ischemic Stroke Goal INR 2.5; range 2.0 - 3.0 For additional information see Guidelines for Anticoagulation available from the pharmacy Wendy Vargas Pharm D. David Ortega MD HEMATOLOGY ORDERABLES Final Re sult [facility] CLIA# [id number] [address] [place] [phone] * (ABNORMAL) PTT (12/28/2016 2:39 AM CDT) PTT 39.1(H) 24.8 - 38.8 seconds 12/28/2016 5:16 AM CDT [facility] Blood Collection / Unknown 12/28/2016 2:39 AM CDT 12/28/2016 5:01 AM CDT [place] [facility] - 12/28/2016 5:16 AM CDT Therapeutic Range: Hi-level PE/DVT heparin protocol 80.1 - 95.0 sec Lo-level PE/DVT heparin protocol 70.1 - 85.0 sec Cardiac Heparin Protocol 70.1 - 100.0 sec David Ortega MD HEMATOLOGY ORDERABLES Final Re sult [facility] CLIA# [id number] [facility] [place] [address] * (ABNORMAL) CBC WITH DIFFERENTIAL (12/28/2016 2:39 AM CDT) Pathologist [facility] WBC 11.0 4.5 - 11.0 K/uL 12/28/2016 5:09 AM CDT [facility] RBC 3.80(L) 4.20 - 5.40 M/uL 12/28/2016 5:09 AM CDT [facility] HEMOGLOBIN 9.3(L) 12.0 - 16.0 g/dL 12/28/2016 5:09 [facility] H[facility] 30.6(L) 36.0 - 46.0 % 12/28/2016 5:09 AM CDT [facility] MCV 80.5(L) 84.0 - 103.0 fL 12/28/2016 5:09 AM CDT [facility] MCH 24.5(L) 27.0 - 34.0 pg 12/28/2016 5:09 AM CDT [facility] MCHC 30.4 30.0 - 35.0 g/dL 12/28/2016 5:09 AM CDT [facility] RDW 17.3(H) 11.0 - 14.5 % 12/28/2016 5:09 AM T [facility] RDW-STDEV 51.8 37.0 - 54.0 fL 12/28/2016 5:09 AM CDT [facility] PLATELETS 757(H) 140 - 440 K/uL 12/28/2016 5:09 AM CDT [facility] MPV 8.9 8.9 - 12.8 fL 12/28/2016 5:09 AM CDT [facility] NEUTROPHILS 65 42 - 75 % 12/28/2016 5:09 AM CDT [facility] LYMPHOCYTES 19(L) 24 - 44 % 12/28/2016 5:09 AM CDT [facility] MONOCYTES 10 2 - 10 % 12/28/2016 5:09 AM CDT [facility] EOSINOPHILS 5 0 - 7 % 12/28/2016 5:09 AM CDT [facility] BASOPHILS 1 0 - 1 % 12/28/2016 5:09 AM CDT [facility] IMMATURE GRANULOCYTES 1 0 - 2 % 12/28/2016 5:09 AM CDT [facility] NEUTROPHIL ABSOLUTE 7.19 2.00 - 8.00 K/uL 12/28/2016 5:09 AM CDT [facility] LYMPHOCYTE ABSOLUTE 2.04 1.20 - 4.00 K/uL 12/28/2016 5:09 AM CDT [facility] MONOCYTE ABSOLUTE 1.06(H) 0.10 - 0.60 K/uL 12/28/2016 5:09 AM CDT [facility] EOSINOPHIL ABSOLUTE 0.60 0.00 - 0.70 K/uL 12/28/2016 5:09 AM CDT [facility] BASOPHILS ABSOLUTE 0.07 0.00 - 0.20 K/uL 12/28/2016 5:09 AM CDT [facility] IMMATURE GRANULOCYTES ABSOLUTE 0.07 0.00 - 0.10 K/uL 12/28/2016 5:09 AM T [facility] Blood Collection / Unknown 12/28/2016 2:39 AM CDT 12/28/2016 5:01 AM CDT us David Ortega MD HEMATOLOGY ORDERABLES Final Re sult [facility] CLIA# [id number] [address] [place] [phone] * (ABNORMAL) COMPREHENSIVE METABOLIC PANEL (12/28/2016 2:39 AM CDT) SODIUM 143 136 - 145 mmol/L 12/28/2016 5:47 AM CDT [facility] POTASSIUM 3.3(L) 3.5 - 5.1 mmol/L 12/28/2016 5:47 AM [facility] CHLORIDE 103 98 - 107 mmol/L 12/28/2016 5:47 AM [facility] CO2 29 21 - 32 mmol/L 12/28/2016 5:47 AM [facility] CALCIUM 8.9 8.4 - 10.1 mg/dL 12/28/2016 5:47 AM [facility] BUN 13 7 - 17 mg/dL 12/28/2016 5:47 AM [facility] CREATININE 0.70 0.55 - 1.02 mg/dL 12/28/2016 5:47 AM [facility] GLUCOSE 46(LL) 74 - 106 mg/dL 12/28/2016 5:47 AM [facility] TOTAL PROTEIN 8.2 6.4 - 8.2 g/dL 12/28/2016 5:47 AM [facility] ALBUMIN 1.8(L) 3.4 - 5.0 g/dL 12/28/2016 5:47 AM [facility] BILIRUBIN TOTAL 0.2 0.2 - 1.0 mg/dL 12/28/2016 5:47 AM [facility] ALKALINE PHOSPHATASE 93 25 - 100 U/L 12/28/2016 5:47 AM [facility] AST 18 15 - 37 U/L 12/28/2016 5:47 AM [facility] ALT 18 13 - 61 U/L 12/28/2016 5:47 AM [facility] GFR >60 >=60 mL/min/1.7 3 sq meter 12/28/2016 5:47 AM [facility] Comment: eGFR has not been validated for [...] 3 sq meter 12/28/2016 5:47 AM CDT [facility] ANION GAP 11 4 - 30 mmol/L 12/28/2016 5:47 AM CDT [facility] Blood Collection / Unknown 12/28/2016 2:39 AM CDT 12/28/2016 5:01 AM CDT us David Ortega MD CHEMISTRY ORDERABLES Final Res ult [facility] CLIA# [id number] [address] [place] [address] documented in this encounter Visit Diagnoses Not on filedocumented in this encounter Care Teams Development Director Relationship Specialty Start Date End Date Shravan Jones DO [address] [address] PCP - General Family Practice 12/04/16 documented as of this encounter
--- OUTSIDE RECORDS SUMMARY | 2025-02-28 22:17 | XMS_ITS | Encounter Summary ---
Author Organization [facility] Address [address] [place] [address] Care Team Providers Care Air Cargo Ground Operations Supervisor Name Role Phone Shravan Jones DO Primary Care Provider Encounter Details Date Type Department Care Team (Late st Contact Info) Description 01/07/2017 Lab Requisition [facility] [address] [place] [address] [place] [address] David Ortega MD [address] [place] [address] Social History Tobacco Use Types Packs/Day Years Used Date Smoking Tobacco: Every Day Cigarettes Comments:pt lethargic Comments Unknown Sex and Gender Information Value Date Recorded Sex Assigned at Not on file 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 Stool STOOL SPECIMEN / Unknown 01/07/2017 1:54 PM CDT 01/07/2017 6:[address] [facility] - 01/07/2017 8:08 PM CDT This assay [...] MICROBIOLOGY - GENERAL ORDERAB LES Final Result [facility] CLIA# [id number] [address] [place] [address] documented in this encounter Visit Diagnoses Not on filedocumented in this encounter Care Teams Air Cargo Ground Operations Supervisor Relationship Specialty Start Date End Date Shravan Jones DO [address] [address] PCP - General Family Practice 12/04/16 documented as of this encounter
--- OUTSIDE RECORDS SUMMARY | 2025-02-28 22:17 | XMS_ITS | Encounter Summary ---
Author Organization [facility] Address [address] [place] [address] Care Team Providers Care Supervisor Fish Hatchery Name Role Phone Shravan Jones DO Primary Care Provider [phone]- [phone] Encounter Details Date Type Department Care Team (Latest Contact Info) Description 05/14/2003 Outpatient [facility] Oral and Maxillo Surgery[address] [place] [address] Jimmy Tineo, CLIVES NO ADDRESS ON FILE UNSPEC DENTAL CARIES (Primary Dx); TOOTH POSITION ANOMALY Social History Tobacco Use Types Packs/Day Years Used Date Smoking Tobacco: Never Assessed Comments Unknown Sex and Gender Information Value Date Recorded Sex Assigned at Not on file 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
--- OUTSIDE RECORDS SUMMARY | 2025-02-28 22:17 | XMS_ITS | Encounter Summary ---
Author Organization [facility] Address [address] [place] [address] Care Team Providers Care Operating Room Coordinator Name Role Phone Shravan Jones DO Primary Care Provider [phone]- [phone] Encounter Details Date Type Department Care Team (Late st Contact Info) Description 01/07/2017 Lab Requisition 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
--- OUTSIDE RECORDS SUMMARY | 2025-02-28 22:17 | XMS_ITS | Encounter Summary ---
Author Organization [facility] Address [address] [place] [address] Care Team Providers Care Job Estimator Name Role Phone Shravan Jones DO Primary Care Provider [phone]- [phone] Encounter Details Date Type Department Care Team (Late st Contact Info) Description 01/07/2017 Lab Requisition [facility] [address] [place] [address] [place] [address] Izabela Diamond MD NO ADDRESS ON FILE Social History Tobacco Use Types Packs/Day Years Used Date Smoking Tobacco: Every Day Cigarettes Comments:pt lethargic Comments Unknown Sex and Gender Information Value Date Recorded Sex Assigned at Not on file 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 Gender Identity Not on file Sexual [...] - 40 mg/dL 01/07/2017 5:27 AM CDT [facility] Blood 01/07/2017 2:23 AM CDT 01/07/2017 5:01 AM CDT Izabela Diamond MD CHEMISTRY ORDERABLES Final Res ult Performing Organization Address City/[facility]/ZIP Co de Phone Number [facility] CLIA# [id number] [address] [place] [phone] * (ABNORMAL) C-REACTIVE PROTEIN (01/07/2017 2:23 AM CDT) CRP 16.6(H) 0.0 - 2.9 mg/L 01/07/2017 5:27 AM CDT [facility] Blood 01/07/2017 2:23 AM CDT 01/07/2017 5:01 AM CDT Izabela Diamond MD CHEMISTRY ORDERABLES Final Res ult Performing Organization Address [facility] Co de Phone Number [facility] CLIA# [id number] [address] [place] [address] * (ABNORMAL) BASIC METABOLIC PANEL (01/07/2017 2:23 AM CDT) SODIUM 139 136 - 145 mmol/L 01/07/2017 5:27 AM CDT [facility] [facility] POTASSIUM 4.1 3.5 - 5.1 mmol/L 01/07/2017 5:27 AM CDT [facility] [employer] [facility] CHLORIDE 104 98 - 107 mmol/L 01/07/2017 5:27 AM CDT [facility] [employer] [facility] CO2 26 21 - 32 mmol/L 01/07/2017 5:27 AM CDT [facility] [employer] [facility] CALCIUM 9.1 8.4 - 10.1 mg/dL 01/07/2017 5:27 AM CDT [facility] [employer] [facility] BUN 14 7 - 17 mg/dL 01/07/2017 5:27 AM CDT [facility] CREATININE 0.82 0.55 - 1.02 mg/dL 01/07/2017 5:27 AM T [facility] GLUCOSE 274(H) 74 - 106 mg/dL 01/07/2017 5:27 AM T [facility] GFR >60 >=60 mL/min/1.7 3 sq meter 01/07/2017 5:27 AM T [facility] Comment: eGFR has not been [...] 3 sq meter 01/07/2017 5:27 AM T [facility] ANION GAP 9 4 - 30 mmol/L 01/07/2017 5:27 AM [facility] Blood 01/07/2017 2:23 AM CDT 01/07/2017 5:01 AM CDT us Izabela Diamond MD CHEMISTRY ORDERABLES Final Res ult [facility] CLIA# [id number] [address] [place] [address] * (ABNORMAL) CBC WITH DIFFERENTIAL (01/07/2017 2:23 AM CDT) WBC 9.3 4.5 - 11.0 K/uL 01/07/2017 5:27 AM CDT [facility] RBC 4.19(L) 4.20 - 5.40 M/uL 01/07/2017 5:27 AM CDT [facility] HEMOGLOBIN 10.3(L) 12.0 - 16.0 g/dL 01/07/2017 5:27 AM [facility] HEMATOCRIT 33.2(L) 36.0 - 46.0 % 01/07/2017 5:27 AM [facility] MCV 79.2(L) 84.0 - 103.0 fL 01/07/2017 5:27 AM [facility] MCH 24.6(L) 27.0 - 34.0 pg 01/07/2017 5:27 AM [facility] MCHC 31.0 30.0 - 35.0 g/dL 01/07/2017 5:27 AM [facility] RDW 17.2(H) 11.0 - 14.5 % 01/07/2017 5:27 AM [facility] RDW-STDEV 49.4 37.0 - 54.0 fL 01/07/2017 5:27 AM [facility] PLATELETS 545(H) 140 - 440 K/uL 01/07/2017 5:27 AM [facility] MPV 10.2 8.9 - 12.8 fL 01/07/2017 5:27 AM [facility] NEUTROPHILS 53 42 - 75 % 01/07/2017 5:27 AM [facility] LYMPHOCYTES 26 24 - 44 % 01/07/2017 5:27 AM [facility] MONOCYTES 9 2 - 10 % 01/07/2017 5:27 AM [facility] EOSINOPHILS 11(H) 0 - 7 % 01/07/2017 5:27 AM [facility] BASOPHILS 1 0 - 1 % 01/07/2017 5:27 AM [facility] IMMATURE GRANULOCYTES 0 0 - 2 % 01/07/2017 5:27 AM [facility] NEUTROPHIL ABSOLUTE 4.88 2.00 - 8.00 K/uL 01/07/2017 5:27 AM [facility] LYMPHOCYTE ABSOLUTE 2.45 1.20 - 4.00 K/uL 01/07/2017 5:27 AM [facility] MONOCYTE ABSOLUTE 0.79(H) 0.10 - 0.60 K/uL 01/07/2017 5:27 AM CDT [facility] EOSINOPHIL ABSOLUTE 1.01(H) 0.00 - 0.70 K/uL 01/07/2017 5:27 AM CDT [facility] BASOPHILS ABSOLUTE 0.11 0.00 - 0.20 K/uL 01/07/2017 5:27 AM CDT [facility] IMMATURE GRANULOCYTES ABSOLUTE 0.04 0.00 - 0.10 K/uL 01/07/2017 5:27 AM CDT [facility] Blood 01/07/2017 2:23 AM CDT 01/07/2017 5:01 AM CDT us Izabela Diamond MD HEMATOLOGY ORDERABLES Final Re sult [facility] CLIA# [id number] [address] [place] [address] documented in this encounter Visit Diagnoses Not on filedocumented in this encounter Care Teams Job Estimator Relationship Specialty Start Date End Date Shravan Jones DO [address] [address] PCP - General Family Practice 12/04/16 documented as of this encounter
--- OUTSIDE RECORDS SUMMARY | 2025-02-28 22:17 | XMS_ITS | Encounter Summary ---
Author Organization [facility] Address [address] [place] [address] Care Team Providers Care Personnel Analyst Name Role Phone Shravan Jones DO Primary Care Provider [phone]- [phone] Encounter Details Date Type Department Care Team (Late st Contact Info) Description 12/12/2016 Nurse Only [facility] 4D Surgery Heart Lung [address] [place] [address] Stephenie Smith RN [address] [place] [address] Social History Tobacco Use Types Packs/Day Years Used Date Smoking Tobacco: Every Day Cigarettes Comments:pt lethargic Comments Unknown Sex and Gender Information Value Date Recorded Sex Assigned at Not on file 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
--- OUTSIDE RECORDS SUMMARY | 2025-02-28 22:17 | XMS_ITS | Clinical Summary ---
Author Organization [facility] Facility Address [address] [address] Care Team Providers Care Debug Technician Name Role Phone Alexis Garcia MD Primary Care Provider [phone] Encounters Date Type Department Care Team Description 02/18/2025 Orders Only [facility], [facility] [address] [place] [address] Chey Navas MD 02/11/2025 Orders Only [facility], [facility] [address] [place] [address] Chey Navas MD 02/09/2025 [facility], [facility] [address] [place] [address] Chey Navas MD End stage renal disease; Dependence on renal dialysis 02/04/2025 Orders Only [facility], [facility] [address] [place] [address] Chey Navas MD 02/02/2025 Treatment [facility], [facility] [address] [place] [address] Karlene Cespedes NP End stage renal disease; Dependence on renal dialysis 01/28/2025 Treatment [facility], [facility] [address] [place] [address] Melissa Wiley NP End stage renal disease; Dependence on renal dialysis 01/28/2025 Orders Only [facility], [facility] [address] [place] [address] Chey Navas MD 01/21/2025 Orders Only [facility], [facility] [address] [place] [address] Chey Navas MD 01/14/2025 Orders Only [facility], [facility] [address] [place] [address] Chey Navas MD 01/12/[address] [place] [address], [facility] [address] [place] [address] Chey Navas MD End stage renal disease; Dependence on renal dialysis 01/07/2025 Orders Only [facility], [facility] [address] [place] [address] Chey Navas MD 01/05/2025 Treatment [facility], [facility] [address] [place] [address] Karlene Cespedes NP End stage renal disease; Dependence on renal dialysis 12/31/2024 Orders Only [facility], [facility] [address] [place] [address] Chey Navas MD 12/29/2024 TCM in Dialysis Clinic [facility], [facility] [address] [place] [address] Melissa Wiley NP 12/29/[address] [place] [address], [facility] [address] [place] [address] Melissa Wiley NP End stage renal disease; Dependence on renal dialysis 12/24/2024 Orders Only [facility], [facility] [address] [place] [address] Chey Navas MD 12/22/2024 Treatment [facility], [facility] [address] [place] [address] Melissa Wiley NP End stage renal disease; Dependence on renal dialysis 12/17/2024 Orders Only [facility], [facility] [address] [place] [address] Chey Navas MD 12/15/[address] [place] [address], [facility] [address] [place] [address] Karlene Cespedes NP End stage renal disease; Dependence on renal dialysis 12/10/2024 Orders Only [facility], [facility] [address] [place] [address] Chey Navas MD 12/10/[address] [place] [address], [facility] [address] [place] [address] Chey Navas MD End stage renal disease; Dependence on renal dialysis 12/07/2024 [facility]ill [facility], [facility] [address] [place] [address] Melissa Wiley NP 12/03/2024 Orders Only [facility], [facility] [address] [place] [address] Chey Navas MD 12/01/[address] [place] [address], [facility] [address] [place] [address] Karlene Cespedes NP End stage [...] 12/17/2024 HEMATOLOGY Routine 12/10/2024 HEMATOLOGY Routine 12/03/2024 SPECIAL CHEMISTRY Routine 11/26/2024 from Last 3 Months or Most Recently Relevant to Health Maintenance Results * (ABNORMAL) HEMATOLOGY (02/18/2025) Only the most recent of12 resultswithin the time period is included. Hemoglobin 9.1(L) 12.0 - 16.0 g/dL [facility] Hemoglobin x 3 27.3(L) 36.0 - 48.0 % [facility] 02/18/2025 02/19/2025 9:2 7 AM CDT Narrative [facility] - 02/19/2025 Unless otherwise specified, test(s) performed at: [facility], [address] [place] [address] CUSTOMS ENTRY CLERK: Jose Luis France M.D. For any questions, please call customer service at FREQUENCY:OTHER Resulting Agency Comment Specimen source: Blood Chey Navas MD LAB BLOOD ORDERABLES Final Re sult Performing Organization Address City/[facility]/ZIP Co de Phone Number [facility] See order comments or contact performing lab Unknown, [place] * HD KINETICS (01/28/2025) Only the most recent of2 resultswithin the time period is included. % Urea Reduction 78 65 - 80 % [facility] 01/28/2025 01/29/2025 2:0 2 PM CDT Narrative Resulting Agency Comment Specimen source: Plasma us Chey Navas MD LAB BLOOD ORDERABLES Final Re sult [facility] See order comments or contact performing lab Unknown, [place] * POST CHEMISTRY (01/28/2025) Only the most recent of2 resultswithin the time period is included. BUN Post Dialysis 13 6 - 19 mg/dL [facility] 01/28/2025 01/29/2025 2:0 2 PM CDT Narrative [facility] - 01/30/2025 Unless otherwise specified, test(s) performed at: [facility], [address] [place] [address] CUSTOMS ENTRY CLERK: Jose Luis France M.D. For any questions, please call customer service at FREQUENCY:MONTHLY Resulting Agency Comment Specimen source: Plasma Chey Navas MD LAB BLOOD ORDERABLES Final Re sult [facility] See order comments or contact performing lab Unknown, [place] * (ABNORMAL) [facility] Chemistry (01/28/2025) Only the most recent of4 resultswithin the time period is included. BUN [...] Saturation (TSat) 51 20 - 55 % [facility] 01/28/2025 01/29/2025 2:1 3 PM CDT Narrative [facility] - 01/29/2025 Unless otherwise specified, test(s) performed at: [facility], [address] [place] [address] CUSTOMS ENTRY CLERK: Jose Luis France M.D. For any questions, please call customer service at FREQUENCY:MONTHLY Resulting Agency Comment Specimen source: Serum Chey Navas MD LAB BLOOD ORDERABLES Final Re sult Performing Organization Address City/[facility]/ZIP Co de Phone Number [facility] See order comments or contact performing lab Unknown, [place] * [facility] Results (01/28/2025) Only the most recent of2 resultswithin the time period is included. Pathologist [facility] WSTDKT/V 2.6 [facility] eKdrt/V 1.56 [facility] nPCR_HD 1.12 [facility] spKt/V (Daugirdas II) 1.79 [facility] eKt/V Gotch 1.56 [facility] [place] eNPCR 1.05 [facility] PCR 57.64 [facility] spKt/V Gotch 1.81 [facility] [place] eKt/V (Tattersall) 1.55 [facility] 01/28/2025 01/28/2025 [facility] Ordering Provider LAB BLOOD ORDERABLES Final Result [facility] Center Contact Performing lab Unknown, [place] * (ABNORMAL) SPECIAL CHEMISTRY (11/26/2024) Hemoglobin A1C 6.2(H) 4.8 - 5.9 % [facility] 11/26/2024 11/27/2024 10: 21 AM CDT Narrative [facility] - 11/27/2024 Unless otherwise specified, test(s) performed at: [facility], [address] [place] [address] CUSTOMS ENTRY CLERK: Jose Luis France M.D. For any questions, please call customer service at FREQUENCY:MONTHLY Resulting Agency Comment Specimen source: Blood Chey Navas MD LAB BLOOD BANK TEST ORDERABLE S Final Result [facility] See order comments or contact performing lab Unknown, [place] from Last 3 Months or Most Recently Relevant to Health Maintenance Insurance [place], [place] [address] Medicaid [place] ([id number]) Medicare Care Teams Debug Technician Relationship Specialty Start Date End Date Alexis Garcia MD [address] [place] [address] PCP - General Family Medicine 04/16/22
--- OUTSIDE RECORDS SUMMARY | 2025-02-28 22:17 | XMS_ITS | Encounter Summary ---
Author Organization [facility] Address [address] [place] [address] Care Team Providers Care Pleater Name Role Phone Shravan Jones DO Primary Care Provider Encounter Details Date Type Department Care Team (Late st Contact Info) Description 12/31/2016 Lab Requisition [facility] [address] [place] [address] David Ortega MD [address] [place] [address] Social History Tobacco Use Types Packs/Day Years Used Date Smoking Tobacco: Every Day Cigarettes Comments:pt lethargic Comments Unknown Sex and Gender Information Value Date Recorded Sex Assigned at Not on file 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 - 12/31/2016 5:52 AM CDT Due to Densitometer Reader update, MG+ reference range has changed from 1.8 - 2.4 mg/dL to the new reference range of 1.6 - 2.6 mg/dL. This will have limited patient impact. us David Ortega MD CHEMISTRY ORDERABLES Final Res ult [facility] CLIA# [id number] [address] [place] [address] * (ABNORMAL) COMPREHENSIVE METABOLIC PANEL (12/31/2016 2:26 AM CDT) SODIUM 138 136 - 145 mmol/L 12/31/2016 5:52 AM CDT [facility] POTASSIUM 4.7 3.5 - 5.1 mmol/L 12/31/2016 5:52 AM [facility] CHLORIDE 102 98 - 107 mmol/L 12/31/2016 5:52 AM T [facility] CO2 27 21 - 32 mmol/L 12/31/2016 5:52 AM T [facility] CALCIUM 9.1 8.4 - 10.1 mg/dL 12/31/2016 5:52 AM T [facility] BUN 17 7 - 17 mg/dL 12/31/2016 5:52 AM T [facility] CREATININE 0.87 0.55 - 1.02 mg/dL 12/31/2016 5:52 AM T [facility] GLUCOSE 214(H) 74 - 106 mg/dL 12/31/2016 5:52 AM T [facility] TOTAL PROTEIN 8.2 6.4 - 8.2 g/dL 12/31/2016 5:52 AM T [facility] ALBUMIN 1.9(L) 3.4 - 5.0 g/dL 12/31/2016 5:52 AM CDT [facility] BILIRUBIN TOTAL 0.2 0.2 - 1.0 mg/dL 12/31/2016 5:52 AM CDT [facility] ALKALINE PHOSPHATASE 95 25 - 100 U/L 12/31/2016 5:52 AM CDT [facility] AST 9(L) 15 - 37 U/L 12/31/2016 5:52 AM CDT [facility] ALT 14 13 - 61 U/L 12/31/2016 5:52 AM CDT [facility] GFR >60 >=60 mL/min/1.7 3 sq meter 12/31/2016 5:52 AM T [facility] Comment: eGFR has not been validated [...] 3 sq meter 12/31/2016 5:52 AM CDT [facility] ANION GAP 9 4 - 30 mmol/L 12/31/2016 5:52 AM T [facility] Blood 12/31/2016 2:26 AM CDT 12/31/2016 5:17 AM CDT us David Ortega MD CHEMISTRY ORDERABLES Final Res ult [facility] CLIA# [id number] [address] [place] [address] * (ABNORMAL) CBC WITH DIFFERENTIAL (12/31/2016 2:26 AM CDT) WBC 13.7(H) 4.5 - 11.0 K/uL 12/31/2016 6:32 AM [facility] RBC 3.66(L) 4.20 - 5.40 M/uL 12/31/2016 6:32 AM [facility] HEMOGLOBIN 9.3(L) 12.0 - 16.0 g/dL 12/31/2016 6:32 AM [facility] [employer] [facility] HEMATOCRIT 29.6(L) 36.0 - 46.0 % 12/31/2016 6:32 AM [facility] [employer] [facility] MCV 80.9(L) 84.0 - 103.0 fL 12/31/2016 6:32 AM [facility] [employer] [facility] MCH 25.4(L) 27.0 - 34.0 pg 12/31/2016 6:32 AM [facility] MCHC 31.4 30.0 - 35.0 g/dL 12/31/2016 6:32 AM [facility] [employer] [facility] RDW 17.4(H) 11.0 - 14.5 % 12/31/2016 6:32 AM [facility] [employer] [facility] RDW-STDEV 52.1 37.0 - 54.0 fL 12/31/2016 6:32 AM [facility] [employer] [facility] PLATELETS 767(H) 140 - 440 K/uL 12/31/2016 6:32 AM [facility] [employer] [facility] MPV 9.0 8.9 - 12.8 fL 12/31/2016 6:32 AM [facility] [employer] [facility] NEUTROPHILS 68 42 - 75 % 12/31/2016 6:32 AM [facility] [employer] [facility] LYMPHOCYTES 17(L) 24 - 44 % 12/31/2016 6:32 AM [facility] [employer] [facility] MONOCYTES 8 2 - 10 % 12/31/2016 6:32 AM [facility] [employer] [facility] EOSINOPHILS 6 0 - 7 % 12/31/2016 6:32 AM [facility] [employer] [facility] BASOPHILS 0 0 - 1 % 12/31/2016 6:32 AM [facility] [employer] [facility] IMMATURE GRANULOCYTES 1 0 - 2 % 12/31/2016 6:32 AM CDT [facility] NEUTROPHIL ABSOLUTE 9.26(H) 2.00 - 8.00 K/uL 12/31/2016 6:32 AM CDT [facility] LYMPHOCYTE ABSOLUTE 2.28 1.20 - 4.00 K/uL 12/31/2016 6:32 AM CDT [facility] MONOCYTE ABSOLUTE 1.07(H) 0.10 - 0.60 K/uL 12/31/2016 6:32 AM CDT [facility] EOSINOPHIL ABSOLUTE 0.82(H) 0.00 - 0.70 K/uL 12/31/2016 6:32 AM CDT [facility] BASOPHILS ABSOLUTE 0.06 0.00 - 0.20 K/uL 12/31/2016 6:32 AM CDT [facility] IMMATURE GRANULOCYTES ABSOLUTE 0.17(H) 0.00 - 0.10 K/uL 12/31/2016 6:32 AM CDT [facility] Blood 12/31/2016 2:26 AM CDT 12/31/2016 5:17 AM CDT Narrative [facility] - 12/31/2016 6:32 AM CDT Smear reviewed us David Ortega MD HEMATOLOGY ORDERABLES Final Re sult [facility] CLIA# [id number] [address] [place] [address] documented in this encounter Visit Diagnoses Not on filedocumented in this encounter Care Teams Pleater Relationship Specialty Start Date End Date Shravan Jones DO [address] [address] PCP - General Family Practice 12/04/16 documented as of this encounter
--- OUTSIDE RECORDS SUMMARY | 2025-02-28 22:17 | XMS_ITS | Encounter Summary ---
Author Organization [facility] [facility] Address 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 [place] [address] Abel Menon DO [address] [facility] [address] [place] [address] documented as of this encounter Visit Diagnoses Not on filedocumented in this encounter Care Teams Clinical Research Coordinator Relationship Specialty Start Date End Date Shravan Jones DO [address] [address] PCP - General Family Practice 12/04/16 documented as of this encounter
--- OUTSIDE RECORDS SUMMARY | 2025-02-28 22:17 | XMS_ITS | Clinical Summary ---
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 Gender Identity Not on file Sexual [...] 10/11/1999, 09/06/1999 Medical Devices Implanted Type Area Senior Financial Reporting Accountant Device Identifier Shelf Expiration Date Model / Serial / Lot Max tracy Flour [id number] - [id number] Implanted:Qty: 2 on 12/17/2016 by Deandre Alan MD at [facility] Biological Left: Lung [employer] 09/19/2019 [id number] / / [id number] Control Implant Funmi Procedures Procedure Name Priority Date/Time Associated Diagnosis Comments HEMOGLOBIN A1C Routine 01/09/2017 2:52 AM CDT from Last 3 Months or Most Recently Relevant to Health Maintenance Results * (ABNORMAL) HEMOGLOBIN A1C (01/09/2017 2:52 AM CDT) HEMOGLOBIN A1C 8.9(H) 4.0 - 6.0 % 01/09/2017 1:31 PM CDT [facility] EST. AVG GLUCOSE, A1C 209 mg/dL 01/09/2017 1:31 PM CDT [facility] Blood 01/09/2017 2:52 AM CDT 01/09/2017 6:53 AM CDT Narrative [facility] - 01/09/2017 1:31 PM CDT Test performed on [employer] instrumentation using HPLC methodology us Izabela Diamond MD CHEMISTRY ORDERABLES Final Res ult [facility] CLIA# [id number] [address] [place] [address] from Last 3 Months or Most Recently Relevant to Health [place] [address] [facility] MEDICAID Advance Directives For more information, please contact: [phone] * Full Code (Latest Code Status on File) Date Activated Date Inactivated Comments 12/17/2016 1:05 PM 12/27/2016 11:32 PM Care Teams Outpatient Physical Therapist Assistant Relationship Specialty Start Date End Date Shravan Jones DO [address] [address] PCP - General Family Practice 12/04/16
--- OUTSIDE RECORDS SUMMARY | 2025-02-28 22:17 | XMS_ITS | Encounter Summary ---
Author Organization [facility] [employer], [facility] Address [address] [place] [address] Phone Care Team Providers Care Security System Installer Name Role Phone Alexis Garcia MD Primary Care Provider [phone] Encounter Details Date Type Department Care Team (Late st Contact Info) Description 12/29/2024 TCM in Dialysis Clinic [facility] [employer], [facility] [address] [place] [address] Yann Lozano NP [address] [place] [address] Social History Tobacco Use Types [...] CDT Patient: Donita Aguilar : 1985 C: [facility] Note Type: Dialysis TCM Service Date: 12/29/2024 The patient was seen for a lyhp-vm-nulg visit as part of Transitional Care Management services. Attending Rayon Winder: MACHO JOHANSEN Dialysis Location: [facility] Schedule: Shift: 2 INTERACTIVE CONTACT This fved-vu-tgjw visit occurred within 2 business days of the patient?s discharge. 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 [facility] Allergies Allergen: acetaminophen Reaction: Nausea/Vomiting TREATMENT [...] to follow with cardiology, pcp, pulmonology and telegraph service rater as noted on discharge. EDUCATION Education relevant [...] or secondary infection VISIT DIAGNOSES CPT Code 70008 - High complexity, seen within 7 days of discharge. I20.9 Angina pectoris (HCC) COMMENTS: Verified she has nitroglycerin on hand at home: reviewed appropriate usage. Instructed to call cardiology for follow up appointment K76.0 Fatty (change of) liver, not elsewhere classified COMMENTS: Newly dx on imaging. Per hospital records, has been referred to telegraph service rater. Monitor for liver dysfunction, assess for any needed support J18.9 Pneumonia, unspecified organism COMMENTS: Monitor for impaired perfusion, fever/chills, increased SOB. If symptoms present, send for CXray. 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 Left main has luminal irregularity with distal 10% stenosis. Cardiology recommended medical management. Negative for angina on assessment today Reviewed symptoms, usage of nitro: instructed to call cardiology for follow up appt. I2.771 Atherosclerosis of other coronary artery bypass graft(s) [...] on filedocumented in this encounter Care Teams Security System Installer Relationship Specialty Start Date End Date Alexis Garcia MD [address] [place] [address] PCP - General Family Medicine 04/16/22 documented as of this encounter
--- OUTSIDE RECORDS SUMMARY | 2025-02-28 22:17 | XMS_ITS | Encounter Summary ---
Author Organization [facility] Address [address] [place] [address] Care Team Providers Care Senior Construction Project Manager Name Role Phone Shravan Jones DO Primary Care Provider Encounter Details Date Type Department Care Team (Late st Contact Info) Description 01/09/[address] [facility] Laboratory Services 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 This will have limited patient impact. us Izabela Diamond MD CHEMISTRY ORDERABLES Final Res ult [facility] CLIA# [id number] [address] [place] [address] * (ABNORMAL) COMPREHENSIVE METABOLIC PANEL (01/09/2017 3:15 AM CDT) SODIUM 139 136 - 145 mmol/L 01/09/2017 5:53 AM CDT [facility] POTASSIUM 4.1 3.5 - 5.1 mmol/L 01/09/2017 5:53 AM T [facility] CHLORIDE 101 98 - 107 mmol/L 01/09/2017 5:53 AM T [facility] CO2 28 21 - 32 mmol/L 01/09/2017 5:53 AM T [facility] CALCIUM 8.8 8.4 - 10.1 mg/dL 01/09/2017 5:53 AM T [facility] BUN 18(H) 7 - 17 mg/dL 01/09/2017 5:53 AM T [facility] CREATININE 0.73 0.55 - 1.02 mg/dL 01/09/2017 5:53 AM T [facility] GLUCOSE 182(H) 74 - 106 mg/dL 01/09/2017 5:53 AM T [facility] TOTAL PROTEIN 8.4(H) 6.4 - 8.2 g/dL 01/09/2017 5:53 AM T [facility] ALBUMIN 2.5(L) 3.4 - 5.0 g/dL 01/09/2017 5:53 AM CDT [facility] BILIRUBIN TOTAL 0.2 0.2 - 1.0 mg/dL 01/09/2017 5:53 AM CDT [facility] ALKALINE PHOSPHATASE 99 25 - 100 U/L 01/09/2017 5:53 AM CDT [facility] AST 30 15 - 37 U/L 01/09/2017 5:53 AM CDT [facility] ALT 27 13 - 61 U/L 01/09/2017 5:53 AM CDT [facility] GFR >60 >=60 mL/min/1.7 3 sq meter 01/09/2017 5:53 AM T [facility] Comment: eGFR has not [...] 3 sq meter 01/09/2017 5:53 AM CDT [facility] ANION GAP 10 4 - 30 mmol/L 01/09/2017 5:53 AM T [facility] Blood 01/09/2017 3:15 AM CDT 01/09/2017 5:12 AM CDT us Izabela Diamond MD CHEMISTRY ORDERABLES Final Res ult [facility] CLIA# [id number] [address] [place] [address] * (ABNORMAL) CBC WITH DIFFERENTIAL (01/09/2017 3:15 AM CDT) WBC 8.7 4.5 - 11.0 K/uL 01/09/2017 5:20 AM [facility] RBC 4.63 4.20 - 5.40 M/uL 01/09/2017 5:20 AM [facility] HEMOGLOBIN 11.3(L) 12.0 - 16.0 g/dL 01/09/2017 5:20 AM [facility] HEMATOCRIT 36.8 36.0 - 46.0 % 01/09/2017 5:20 AM [facility] MCV 79.5(L) 84.0 - 103.0 fL 01/09/2017 5:20 AM [facility] MCH 24.4(L) 27.0 - 34.0 pg 01/09/2017 5:20 AM [facility] MCHC 30.7 30.0 - 35.0 g/dL 01/09/2017 5:20 AM [facility] RDW 17.3(H) 11.0 - 14.5 % 01/09/2017 5:20 AM [facility] RDW-STDEV 50.4 37.0 - 54.0 fL 01/09/2017 5:20 AM [facility] PLATELETS 463(H) 140 - 440 K/uL 01/09/2017 5:20 AM [facility] MPV 9.9 8.9 - 12.8 fL 01/09/2017 5:20 AM [facility] NEUTROPHILS 46 42 - 75 % 01/09/2017 5:20 AM [facility] LYMPHOCYTES 33 24 - 44 % 01/09/2017 5:20 AM [facility] MONOCYTES 8 2 - 10 % 01/09/2017 5:20 AM [facility] EOSINOPHILS 11(H) 0 - 7 % 01/09/2017 5:20 AM [facility] BASOPHILS 1 0 - 1 % 01/09/2017 5:20 AM [facility] IMMATURE GRANULOCYTES 0 0 - 2 % 01/09/2017 5:20 AM [facility] NEUTROPHIL ABSOLUTE 4.05 2.00 - 8.00 K/uL 01/09/2017 5:20 AM CDT [facility] LYMPHOCYTE ABSOLUTE 2.86 1.20 - 4.00 K/uL 01/09/2017 5:20 AM CDT [facility] MONOCYTE ABSOLUTE 0.73(H) 0.10 - 0.60 K/uL 01/09/2017 5:20 AM CDT [facility] EOSINOPHIL ABSOLUTE 0.95(H) 0.00 - 0.70 K/uL 01/09/2017 5:20 AM CDT [facility] BASOPHILS ABSOLUTE 0.11 0.00 - 0.20 K/uL 01/09/2017 5:20 AM CDT [facility] IMMATURE GRANULOCYTES ABSOLUTE 0.03 0.00 - 0.10 K/uL 01/09/2017 5:20 AM CDT [facility] Blood 01/09/2017 3:15 AM CDT 01/09/2017 5:12 AM CDT us Izabela Diamond MD HEMATOLOGY ORDERABLES Final Re sult [facility] CLIA# [id number] [address] [place] [address] * (ABNORMAL) HEMOGLOBIN A1C (01/09/2017 2:52 AM CDT) HEMOGLOBIN A1C 8.9(H) 4.0 - 6.0 % 01/09/2017 1:31 PM CDT [facility] EST. AVG GLUCOSE, A1C 209 mg/dL 01/09/2017 1:31 PM CDT [facility] Blood 01/09/2017 2:52 AM CDT 01/09/2017 6:53 AM CDT Narrative [facility] - 01/09/2017 1:31 PM CDT Test performed on [employer] instrumentation using HPLC methodology us Izabela Diamond MD CHEMISTRY ORDERABLES Final Res ult [facility] CLIA# [id number] [address] [place] [address] documented in this encounter Visit Diagnoses Not on filedocumented in this encounter Care Teams Senior Construction Project Manager Relationship Specialty Start Date End Date Shravan Jones DO [address] [phone] PCP - General Family Practice 12/04/16 documented as of this encounter
--- OUTSIDE RECORDS SUMMARY | 2025-02-28 22:17 | XMS_ITS | Encounter Summary ---
Author Organization [facility] Address [address] [place] [address] Care Team Providers Care Steel Buffer Name Role Phone Shravan Jones DO Primary Care Provider [phone] Reason for Visit * Reason Onset Date Comments Appointment Notification 11/05/2023 Encounter Details Date Type Department Care Team (Late st Contact Info) Description 11/05/2023 Telephone [facility] [address] [place] [phone] Janell Beauchamp MD [address] [place] [address] Appointment Notification Social History Tobacco Use Types Packs/Day Years Used Date Smoking Tobacco: Every Day Comments:Quit smoking: pt le thargic Social Connections Answer Date Recorded In a typical week, how many times do you talk on the telephone with family, friends, or neighbors? Never 09/22/19 24 Frequency of Social Gatherings with Friends and Family Not on file 09/22/2023 Attends Mosque Services Not on file 09/21 Active Member [...] on file Legal Sex Female 3:34 PM [employer] Gender Identity Not on file Sexual Orientation Not on file documented as of this encounter Miscellaneous Notes * Telephone Encounter - Patrica Barney - 11/05/2023 12:07 PM CDT Janell (Provider) MESSAGE Pt needs to cancel appt on 11/07 and would like to resched. For 11/25 as she has other appts in town that day. Please call pt to reschedule. [facility] Endless Track Vehicle Mechanic: Patrica Barney documented in this encounter Plan of Treatment Upcoming Encounters Date Type Department Care Team (Late st Contact Info) Description 05/19/2025 9:30 AM [facility] [employer] [facility] [address] [address] Abel Menon DO [address] [phone] documented as of this encounter Visit Diagnoses Not on filedocumented in this encounter Additional Health Concerns Infection Onset Date Last Indicated Resolved Time R/O C. diff 07/06/2024 07/06/2024 07/06/2024 8:35 AM [employer] documented as of this encounter Care Teams Steel Buffer Relationship Specialty Start Date End Date Shravan Jones DO [address] [place] [phone] PCP - General Family Practice 12/04/16 documented as of this encounter
--- OUTSIDE RECORDS SUMMARY | 2025-02-28 22:17 | XMS_ITS | Encounter Summary ---
Author Organization [facility] [employer] Address [address] [place] [address] Phone Care Team Providers Care Hris Developer Name Role Phone Alexis Garcia MD Primary Care Provider [phone] Encounter Details Date Type Department Care Team (Late st Contact Info) Description 04/16/2022 Orders Only [facility] [employer] [address] [place] [address] Chronic kidney disease, Stage IV [...] (severe) documented in this encounter Care Teams Hris Developer Relationship Specialty Start Date End Date Alexis Garcia MD [address] [place] [address] PCP - General Family Medicine 04/16/22 documented as of this encounter
--- OUTSIDE RECORDS SUMMARY | 2025-02-28 22:17 | XMS_ITS | Encounter Summary ---
Author Organization [facility] Address [address] [place] [address] Care Team Providers Care Step Finisher Name Role Phone Shravan Jones DO Primary Care Provider [phone] Encounter Details Date Type Department Care Team (Late st Contact Info) Description 01/02/2017 Lab Requisition [facility] Laboratory Services [address] [place] [address] Izabela Diamond MD NO ADDRESS ON FILE Social History Tobacco Use Types Packs/Day Years Used Date Smoking Tobacco: Every Day Cigarettes Comments:pt lethargic Comments Unknown Sex and Gender Information Value Date Recorded Sex Assigned at Not on file 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 Gender Identity Not on file Sexual [...] - 145 mmol/L 01/02/2017 6:07 AM CDT [facility] [employer] [facility] POTASSIUM 4.3 3.5 - 5.1 mmol/L 01/02/2017 6:07 AM CDT [facility] CHLORIDE 101 98 - 107 mmol/L 01/02/2017 6:07 AM T [facility] CO2 27 21 - 32 mmol/L 01/02/2017 6:07 AM T [facility] CALCIUM 9.7 8.4 - 10.1 mg/dL 01/02/2017 6:07 AM T [facility] BUN 16 7 - 17 mg/dL 01/02/2017 6:07 AM [facility] CREATININE 0.87 0.55 - 1.02 mg/dL 01/02/2017 6:07 AM T [facility] GLUCOSE 122(H) 74 - 106 mg/dL 01/02/2017 6:07 AM [facility] GFR >60 >=60 mL/min/1.7 3 sq meter 01/02/2017 6:07 AM T [facility] Comment: eGFR has not been validated [...] 3 sq meter 01/02/2017 6:07 AM CDT [facility] ANION GAP 10 4 - 30 mmol/L 01/02/2017 6:07 AM T [facility] Blood 01/02/2017 3:00 AM CDT 01/02/2017 5:35 AM CDT us Izabela Diamond MD CHEMISTRY ORDERABLES Final Res ult [facility] CLIA# [id number] [address] [place] [address] * (ABNORMAL) CBC WITH DIFFERENTIAL (01/02/2017 3:00 AM CDT) [facility] WBC 10.4 4.5 - 11.0 K/uL 01/02/2017 5:44 AM [facility] RBC 4.30 4.20 - 5.40 M/uL 01/02/2017 5:44 AM [facility] HEMOGLOBIN 10.4(L) 12.0 - 16.0 g/dL 01/02/2017 5:44 AM [facility] HEMATOCRIT 34.5(L) 36.0 - 46.0 % 01/02/2017 5:44 AM [facility] MCV 80.2(L) 84.0 - 103.0 fL 01/02/2017 5:44 AM [facility] MCH 24.2(L) 27.0 - 34.0 pg 01/02/2017 5:44 AM [facility] MCHC 30.1 30.0 - 35.0 g/dL 01/02/2017 5:44 AM [facility] RDW 17.4(H) 11.0 - 14.5 % 01/02/2017 5:44 AM [facility] RDW-STDEV 51.1 37.0 - 54.0 fL 01/02/2017 5:44 AM [facility] PLATELETS 764(H) 140 - 440 K/uL 01/02/2017 5:44 AM [facility] MPV 9.2 8.9 - 12.8 fL 01/02/2017 5:44 AM [facility] NEUTROPHILS 56 42 - 75 % 01/02/2017 5:44 AM [facility] LYMPHOCYTES 27 24 - 44 % 01/02/2017 5:44 AM [facility] MONOCYTES 8 2 - 10 % 01/02/2017 5:44 AM [facility] EOSINOPHILS 7 0 - 7 % 01/02/2017 5:44 AM [facility] BASOPHILS 1 0 - 1 % 01/02/2017 5:44 AM [facility] IMMATURE GRANULOCYTES 1 0 - 2 % 01/02/2017 5:44 AM CDT [facility] NEUTROPHIL ABSOLUTE 5.79 2.00 - 8.00 K/uL 01/02/2017 5:44 AM CDT [facility] LYMPHOCYTE ABSOLUTE 2.78 1.20 - 4.00 K/uL 01/02/2017 5:44 AM CDT [facility] MONOCYTE ABSOLUTE 0.85(H) 0.10 - 0.60 K/uL 01/02/2017 5:44 AM CDT [facility] EOSINOPHIL ABSOLUTE 0.76(H) 0.00 - 0.70 K/uL 01/02/2017 5:44 AM CDT [facility] BASOPHILS ABSOLUTE 0.10 0.00 - 0.20 K/uL 01/02/2017 5:44 AM CDT [facility] IMMATURE GRANULOCYTES ABSOLUTE 0.09 0.00 - 0.10 K/uL 01/02/2017 5:44 AM CDT [facility] Blood 01/02/2017 3:00 AM CDT 01/02/2017 5:35 AM CDT us Izabela Diamond MD HEMATOLOGY ORDERABLES Final Re sult [facility] CLIA# [id number] [facility] [place] [address] documented in this encounter Visit Diagnoses Not on filedocumented in this encounter Care Teams Step Finisher Relationship Specialty Start Date End Date Shravan Jones DO [address] [phone] PCP - General Family Practice 12/04/16 documented as of this encounter
[2025-02-28 22:28] VITALS: BP 127/69; PULSE 69; RESP 18; TEMP 36.7; O2SAT 100; BMI 26.4
--- NOTE | 2025-02-28 23:04 | XRR_ITS ---
PROCEDURE INFORMATION: Exam: XR Chest Exam date and time: 03/01/2025 12:56 AM Age: 39 years old Clinical indication: Shortness of breath; Prior surgery; Surgery date: 6+ months; Surgery type: Gb; C/O SOB TECHNIQUE: Imaging protocol: Radiologic exam of the chest. Views: 1 view. COMPARISON: CR XR chest 1V portable [id number] 02/24/2025 1:00 PM FINDINGS: Lungs: Unremarkable. No consolidation. Pleural spaces: Unremarkable. No pleural effusion. No pneumothorax. Heart/Mediastinum: Unremarkable. No cardiomegaly. Bones/joints: Unremarkable. XR/XR chest 1V portable [id number] IMPRESSION: No acute findings.
[2025-02-28 23:55] LABS: Hematocrit 31.0 % (36-47); Hemoglobin 10.00 g/dL (11.27-16.99); Mean Corpuscular HGB Conc 32.3 g/dL (30-55); Mean Corpuscular Hemoglobin 32.5 pg (27-33); Mean Corpuscular Volume 100.6 fl (85-98); Nucleated Red Blood Cells % 0 %; Platelet Count 191 10^3/cmm (157-399); Red Blood Count 3.08 10^6/uL (3.85-5.65); White Blood Count 6.13 10^3/uL (3.29-11.43)
[2025-03-01 00:15] LABS: Alanine Aminotransferase 19 U/L (0-33); Albumin Level 3.8 g/dL (3.5-5.2); Alkaline Phosphatase 175 U/L (35-105); Anion Gap 20.3 (5-19); Aspartate Amino Transferase 20 U/L (0-32); Blood Urea Nitrogen 35 mg/dL (6-20); Calcium 8.5 mg/dL (8.5-10.5); Carbon Dioxide 25 mmol/L (22-29); Chloride 97 mmol/L (98-107); Globulin 3.9 g/dL (1.3-4.6); Glucose 296 mg/dL (65-115); Osmolality Calculated 305 mOsm/kg (285-295); Potassium 4.3 mmol/L (3.5-5.1); Sodium 138 mmol/L (136-145); Total Protein 7.7 g/dL (6.6-8.7)
[2025-03-01 00:46] LABS: Creatinine Clr Calc Pharmacy 8.9098
[2025-03-01 01:02] VITALS: BP 146/78; PULSE 73; RESP 18; O2SAT 100
--- NOTE | 2025-03-01 01:39 | ED_ITS ---
HPI - SOB/Dyspnea 2 General: Chief Complaint: Shortness of Breath/Dyspnea Stated Complaint: SOB\Kidney Area Hurting Time Seen by Provider: 03/01/25 01:00 History of Present Illness: HPI Narrative: 39-year-old female well-known to the [facility] service. She has a history of end-stage renal disease. She states she is having a hard time breathing. She has bilateral flank pain as well. She had dialysis yesterday, but notes that she did not get a full treatment, as she pulled her needle out accidentally and they did not want to reinsert and restart dialysis at that time. She denies fever, but has chills currently. She had 1 episode of vomiting this morning. She is due for dialysis again on Saturday. Related Data Home Medications ?Medication ?Instructions ?Recorded ?Confirmed clonidine HCl 0.1 mg tablet See Rx Instructions .Route 11/27/23 02/22/25 .COMPLEX PRN Blood Pressure gabapentin 100 mg capsule 300 mg PO TID 12/27/2302/22 clopidogrel 75 mg tablet 75 mg PO DAILY 04/28/2407/18 escitalopram oxalate 20 mg tablet 20 mg PO DAILY anxie ty 02/14/25 02/22/25 folic acid 1 mg tablet 1 mg PO DAILY 02/14/2502/22 hydralazine 25 mg tablet 12.5 mg PO BID 02/14/2507/18 tizanidine 4 mg tablet 4 mg PO Q6H PRN Muscle Spasm 02/14/25 02/22/25 lisinopril 40 mg tablet 40 mg PO DAILY 02/22/2507/18 nitroglycerin 0.4 mg sublingual See Rx Instructions .R oute .COMPLEX 02/22/25 02/22/25 tablet Previous Rx's ?Medication ?Instructions ?Recorded blood-glucose sensor (Dexcom G6 #3 ea 06/12/22 Sensor device) blood-glucose transmitter (Dexcom #1 ea 06/12/22 G6 Transmitter device) blood-glucose,pre wave assembler,cont #1 ea 06/12/22 (Dexcom G6 In Processing Instructor) sevelamer carbonate 800 mg tablet 800 mg PO TID #90 ta bs 09/16/23 aspirin 81 mg tablet,delayed 81 mg PO QAM 30 days #30 tabs 03/28/24 release atorvastatin 40 mg tablet 40 mg PO BEDTIME 30 days #30 tabs 03/28/24 AFO brace #1 ea 04/20/24 diabetic shoes with 3 inserts #1 ea 04/20/24 amlodipine 5 mg tablet 5 mg PO DAILY #30 tabs 09/30 bumetanide 1 mg tablet See Rx Instructions .Route 0 09/30/24 .COMPLEX #60 tabs insulin aspart U-100 100 unit/mL See Rx Instructions . Route 12/28/24 (3 mL) subcutaneous pen (Novolog .COMPLEX #15 mL FlexPen U-100 Insulin aspart) isosorbide mononitrate 30 mg 30 mg PO DAILY #30 tabs 0 02/26/25 tablet,extended release 24 hr Allergies Allergy/AdvReac Type Severity Reaction Status Date / Time acetaminophen AdvReac Mild ADR-Gastrointestinal Verified 02/28/25 22:37 Upset PFSH ED 2 PFSH: Medical History Chest pain Diabetes mellitus HTN (hypertension) HTN (hypertension), benign Hyperkalemia Headache Accelerated hypertension Uncontrolled type 1 diabetes mellitus ESRD (end stage renal disease) Dialysis complication Hypoglycemia Hemodialysis catheter dysfunction Colitis End stage renal disease on dialysis COPD (chronic obstructive pulmonary disease) Transaminitis Intractable nausea and vomiting Hyperlipidemia CHF (congestive heart failure), NYHA class III Pulmonary hypertension CAD (coronary artery disease) Neurogenic bladder COVID-19 Tobacco dependence Drug abuse Anemia Community acquired pneumonia Esophagitis Long-term insulin use History of pancreatitis Celiac disease Recurrent UTI Non-alcoholic fatty liver disease Arnold-Chiari malformation Diabetic gastroparesis -continue Reglan Diabetic neuropathy associated with type 1 diabetes mellitus Headache, common migraine, intractable, with status migrainosus Pleural effusion 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 History of lung surgery -s/p LLL lobectomy secondary to cavitary pneumonia (2017) History of endoscopy History of cholecystectomy Family History Grandfather Diabetes Mother CAD (coronary artery disease) Diabetes Heart disease Hypertension Brother Acute lymphoblastic leukemia (ALL) in child Grandmother Thyroid disease Denies family history of Colon cancer Ovarian cancer Prostate cancer Hyperlipidemia Breast cancer Uterine cancer Stroke Social History Smoking and tobacco/nicotine status: former use of tobacco/nicotine Quit status (tobacco/nicotine): has quit using Former quit date comment: She previously smoked <1/2 PPD, quit July 2023. Second hand smoke exposure: Yes Alcohol intake: never Substance/Drug Use: current Household members: children Housing: House Marital status: Single Current occupational status: unemployed Physical Exam 2 Const: GENERAL APPEARANCE: cooperative and anxious; not ill appearing and not frail appearing HENMT: COMMON NORMALS: normocephalic, atraumatic and Normal external nose present HEAD & SCALP: normocephalic and atraumatic FACE & SINUS: normal facial exam and face symmetric NOSE: Normal external nose present Eye: COMMON NORMALS: Equal, round and reactive pupils present and EOMs intact bilaterally PUPIL: Yes Equal, round and reactive pupils present Neck/C-Spine: GENERAL: Yes trachea midline Chest: CHEST: Yes Symmetrical chest wall rise Resp: COMMON NORMALS: normal respiratory effort, No retractions, No use of accessory muscles and clear to auscultation bilaterally AUSCULTATION: clear to auscultation bilaterally Cardio: COMMON NORMALS: regular rate and regular rhythm RATE: regular rate RHYTHM: regular rhythm GI: COMMON NORMALS: Normal to inspection, nondistended, normoactive bowel sounds present Extremity: COMMON NORMALS: no pedal edema Neuro: JEET COMA SCALE: document GCS findings Jeet coma scale eye opening: Spontaneous Jeet coma scale verbal response: Orientated Jeet coma scale motor response: Obey commands Sherwood coma scale total score: 15 S ENSORY EXAM: Yes extremities (intact) Psych: COMMON NORMALS: speech normal SPEECH: Yes normal speech Skin: COMMON NORMALS: no rashes or lesions noted GENERAL SKIN EXAM: no rashes or lesions noted Course 2 Vital Signs: Vital signs: Vital Signs Temperature 98.1 F 02/28/25 22:28 Pulse Rate 70 03/01/25 02:33 Respiratory Rate 18 03/01/25 02:33 Blood Pressure 148/96 03/01/25 02:28 Pulse Oximetry 100 03/01/25 02:33 Oxygen Delivery Me thod Nasal Cannula 03/01/25 02:33 Oxygen Flow Rate 4 03/01/25 02:33 MDM - SOB/Dyspnea Medical Decision Making Vitals are stable. Saturations are 100%. She has oxygen at home. CBC is not remarkable. Her hemoglobin is stable at 10. Creatinine is 7, but electrolytes are normal. Chest x-ray shows no acute findings. No pulmonary edema or effusions. She is given a breathing treatment here. She was given an injection for pain. She is feeling somewhat improved. She is stable for discharge. She will have scheduled dialysis in 28 hours. She knows to return for worsening symptoms. Lab Data 02/28/25 23:36 02/28/25 23:36 Labs/Radiology: Radiology Impressions Chest X-Ray 02/28/25 23:04 IMPRESSION: No acute findings. Laboratory Results WBC 6.13 10^3/uL (3.29-11.43) 02/28/25 23:36 RBC 3.08 10^6/uL (3.85-5.65) L 02/28/25 23:36 Hgb 10.00 g/dL (11.27-16.99) L 02/28/25 23:36 Hct 31.0 % (36-47) L 02/28/25 23:36 MCV 100.6 fl (85-98) H 02/28/25 23:36 MCH 32.5 pg (27-33) 02/28/25 23:36 MCHC 32.3 g/dL (30-55) 02/28/25 23:36 RDW 14.1 % (12.1-15.1) 02/28/25 23:36 Plt Count 191 10^3/cmm (157-399) 02/28/25 23:36 MPV 10.3 fL (7.4-10.4) 02/28/25 23:36 Neut % (Auto) 62.5 % 02/28/25 23:36 Lymph % (Auto) 23.5 % 02/28/25 23:36 Worth % (Auto) 9.1 % 02/28/25 23:36 Eos % (Auto) 3.8 % 02/28/25 23:36 Baso % (Auto) 0.8 % 02/28/25 23:36 Neut # (Auto) 3.83 10^3/uL (1.8-7.7) 02/28/25 23:36 Lymph # (Auto) 1.4 10^3/uL (0.8-4.8) 02/28/25 23:36 Worth # (Auto) 0.6 10^3/uL (0.2-0.9) 02/28/25 23:36 Eos # (Auto) 0.2 10^3/uL (0.0-0.8) 02/28/25 23:36 Baso # (Auto) 0.1 10^3/uL (0.0-0.1) 02/28/25 23:36 Nucleated RBC % (auto) 0 % 02/28/25 23:36 Nucleated RBCs # 0.0 /100WBC 02/28/25 23:36 Sodium 138 mmol/L (136-145) 02/28/25 23:36 Potassium 4.3 mmol/L (3.5-5.1) 02/28/25 23:36 Chloride 97 mmol/L (98-107) L 02/28/25 23:36 Carbon Dioxide 25 mmol/L (22-29) 02/28/25 23:36 Anion Gap 20.3 (5-19) H 02/28/25 23:36 BUN 35 mg/dL (6-20) H 02/28/25 23:36 Creatinine 7.0 mg/dL (0.5-0.9) H* 02/28/25 23:36 GFR Calculation 6.6 mL/min (90-130) L 02/28/25 23:36 Glucose 296 mg/dL (65-115) H 02/28/25 23:36 Calculated Osmolality 305 mOsm/kg (285-295) H 02/28/25 23:36 Calcium 8.5 mg/dL (8.5-10.5) 02/28/25 23:36 Total Bilirubin 0.3 mg/dL (0.15-1.2) 02/28/25 23:36 AST 20 U/L (0-32) 02/28/25 23:36 ALT 19 U/L (0-33) 02/28/25 23:36 Alkaline Phosphatase 175 U/L (35-105) H 02/28/25 23:36 Total Protein 7.7 g/dL (6.6-8.7) 02/28/25 23:36 Albumin 3.8 g/dL (3.5-5.2) 02/28/25 23:36 Globulin 3.9 g/dL (1.3-4.6) 02/28/25 23:36 All radiology interpretation(s) finalized by discharge Discharge Plan Discharge Patient Disposition: Home Clinical Impression: Shortness of breath, ESRD (end stage renal disease) HTN (hypertension) Qualifiers: Hypertension type: primary hypertension Qualified Code(s): I10 - Essential (primary) hypertension Condition: Stable Prescriptions: No Action (DME) AFO brace See Rx Instructions .Route .MEDSUPPLY Qty: 1 0RF Rx Instructions: As directed to the shoe guys ([facility]) diabetic shoes with 3 inserts See Rx Instructions .Route .MEDSUPPLY Qty: 1 0RF Rx Instructions: As directed to the shoe guys ([facility]) Dexcom G6 In Processing Instructor Misc See Rx Instructions .Route Qty: 1 0RF Rx Instructions: As directed ([facility]) Dexcom G6 Sensor Device See Rx Instructions .Route Qty: 3 0RF Rx Instructions: As directed ([facility]) Dexcom G6 Transmitter Device See Rx Instructions .Route Qty: 1 0RF Rx Instructions: As directed atorvastatin 40 mg tablet 40 mg PO BEDTIME 30 Days Qty: 30 0RF aspirin 81 mg tablet,delayed release (DR/EC) 81 mg PO QAM 30 Days Qty: 30 0RF amlodipine 5 mg Tablet 5 mg PO DAILY Qty: 30 0RF bumetanide 1 mg tablet See Rx Instructions .ROUTE .COMPLEX Qty: 60 0RF Rx Instructions: TAKE 1 TABLET BY MOUTH twice DAILY ON NON-DIALYSIS DAYS sevelamer carbonate 800 mg Tablet 800 mg PO TID Qty: 90 0RF clonidine HCl 0.1 mg tablet See Rx Instructions .ROUTE .COMPLEX PRN (Reason: Blood Pressure) Rx Instructions: TAKE 1 TABLET IF SYSTOLIC BLOOD PRESSURE IS GREATER THAN 160, REPEAT ONCE IF SYSTOLIC BLOOD PRESSURE IS STILL OVER 160 AFTER 1 HOUR. gabapentin 100 mg Capsule 300 mg PO TID clopidogrel 75 mg tablet 75 mg PO DAILY insulin aspart U-100 [Novolog FlexPen U-100 Insulin] 100 unit/mL (3 mL) insulin pen See Rx Instructions .ROUTE .COMPLEX Qty: 15 0RF Rx Instructions: Inject 3 times daily, subcut, after meals, based on low-dose sliding scale. tizanidine 4 mg tablet 4 mg PO Q6H PRN (Reason: Muscle Spasm) hydralazine 25 mg tablet 12.5 mg PO BID folic acid 1 mg tablet 1 mg PO DAILY escitalopram oxalate 20 mg tablet 20 mg PO DAILY nitroglycerin 0.4 mg tablet, sublingual See Rx Instructions .ROUTE .COMPLEX Rx Instructions: DISSOLVE ONE TABLET UNDER THE TONGUE EVERY 5 MINUTES NEEDED FOR CHEST PAIN. DO NOT EXCEED A TOTAL OF 3 DOSES IN 15 MINUTES. lisinopril 40 mg tablet 40 mg PO DAILY isosorbide mononitrate 30 mg tablet extended release 24 hr 30 mg PO DAILY Qty: 30 0RF Discharge Orders: Discharge ED (Routine); Ordered 03/01/25 Ordered By: Jak Larose Referrals: Elizabeth Dougherty FNP [Primary Care Provider, Unknown] Patient Instructions: Dyspnea (ED), End Stage Kidney Disease (ED), Opioid Safety, Pain Management, Patient Portal & Flaca Instructions Activity Restrictions/Additional Instructions: In the absence of any electrolyte abnormalities, inpatient dialysis is not warranted. Attend your scheduled dialysis tomorrow. Return for continued or worsening symptoms. Print Language: Somali Coding Level of Care Code ED Dog Boarder for Reji Chandler
[2025-03-01] MEDS: HYDROmorphone 0.5 MG/0.5 ML INJ IM (02:09)
[2025-03-01 02:28] VITALS: BP 148/96; PULSE 70; O2SAT 100
[2025-03-01 02:31] VITALS: PULSE 70; RESP 20; O2SAT 100
[2025-03-01 02:33] VITALS: PULSE 70; RESP 18; O2SAT 100
[2025-03-01] MEDS: oxyCODONE-APAP 5-325 mg Tablet 2 TAB PO (03:11)
[2025-03-01 03:12] VITALS: PULSE 74; RESP 18; O2SAT 100
== END 2025-03-01 03:14 | disposition home or self-care (01) ==
PROVIDERS: Emergency Provider Emergency Medicine; PCP Nurse Practitioner Family
DX: R06.02 Shortness of breath (principal); E10.22 Type 1 diabetes mellitus with diabetic chronic kidney disease; I13.2 Hypertensive heart and chronic kidney disease with heart failure and with stage 5 chronic kidney disease, or end stage renal disease; I50.9 Heart failure, unspecified; N18.6 End stage renal disease; Z99.2 Dependence on renal dialysis; I25.10 Atherosclerotic heart disease of native coronary artery without angina pectoris; E78.5 Hyperlipidemia, unspecified; Z87.891 Personal history of nicotine dependence
CPT/HCPCS: 36415; 71045; 80053; 85025; 94640; 96372; 99284; J1171; J9999; Q0162

== ENCOUNTER 2025-03-03 21:13 | Emergency (ER) | payer MEDICARE, MEDICAID, SELFPAY ==
--- NOTE | 2025-03-03 21:14 | XRR_ITS ---
PROCEDURE INFORMATION: Exam: XR Chest Exam date and time: 03/03/2025 9:31 PM Age: 39 years old Clinical indication: Shortness of breath; Additional info: SOB TECHNIQUE: Imaging protocol: Radiologic exam of the chest. Views: 1 view. COMPARISON: CR (CHEST, ) 03/01/2025 12:56 AM FINDINGS: Lungs: Unremarkable. No consolidation. Pleural spaces: Unremarkable. No pleural effusion. No pneumothorax. Heart/Mediastinum: Unremarkable. No cardiomegaly. Bones/joints: Unremarkable. XR/XR chest 1V portable [id number] IMPRESSION: No acute findings.
--- NOTE | 2025-03-03 21:23 | ECG_ITS ---
[facility] Test Date: 2025-03-03 Pat Name: Donita Aguilar Department: Room: Gender: Female Signals Intelligence Superintendent: : 1985 Requested By: Ronny Ayala Order Number: [id number] Salmeron MD: Vance Valdez M.D. Measurements Intervals [place] Rate: 73 P: 6 NH: 162 QRS: -17 QRSD: 93 T: 18 QT: 408 QTc: 453 Interpretive Statements SINUS RHYTHM VOLTAGE CRITERIA FOR LVH [MEETS CRITERIA IN ONE OF: R(aVL), S(V1), R(V5), R(V5/V6)+S(V1)] NONSPECIFIC ST-T WAVE ABNORMALITY INFERIOR MYOCARDIAL INFARCTION , PROBABLY OLD [40+ ms Q WAVE AND/OR ST/T ABNORMALITY IN II/aVF] Compared to ECG 02/24/2025 15:23:52 Left ventricular hypertrophy now present Myocardial infarct finding still present ST-T CHANGES ARE NEW IN THE LATERAL LEADS Electronically Signed On 03-03-2025 22:45:25 CDT by Vance Valdez M.D. [email or web address]
[2025-03-03 21:25] VITALS: BP 95/59; PULSE 74; RESP 16; TEMP 37.4; O2SAT 98
--- OUTSIDE RECORDS SUMMARY | 2025-03-03 21:38 | XMS_ITS | Clinical Summary ---
Author Organization [facility] Address [address] [place] [address] Phone Care Team Providers Care Leasing Sales Consultant Name Role Phone Shravan Jones DO Primary Care Provider [phone] Allergies No known active allergies Medications oxyCODONE-aceta [...] on file Legal Sex Female 4:38 AM NATIONAL SALES DIRECTOR Gender Identity Not on file Sexual [...] 10/11/1999, 09/06/1999 Medical Devices Implanted Type Area Inspector Timers Device Identifier Shelf Expiration Date Model / Serial / Lot Max tracy Flour [id number] - [id number] Implanted:Qty: 2 on 12/17/2016 by Deandre Alan MD at [facility] Biological Left: Lung CR [employer] 09/19/2019 [id number] / / [id number] Control Implant Funmi Procedures Procedure Name Priority Date/Time Associated Diagnosis Comments HEMOGLOBIN A1C Routine 01/09/2017 2:52 AM CDT from Last 3 Months or Most Recently Relevant to Health Maintenance Results * (ABNORMAL) HEMOGLOBIN A1C (01/09/2017 2:52 AM CDT) HEMOGLOBIN A1C 8.9(H) 4.0 - 6.0 % 01/09/2017 1:31 PM CDT [facility] EST. AVG GLUCOSE, A1C 209 mg/dL 01/09/2017 1:31 PM CDT [facility] Blood 01/09/2017 2:52 AM CDT 01/09/2017 6:53 AM CDT Narrative [facility] - 01/09/2017 1:31 PM CDT Test performed on DoostangII instrumentation using HPLC methodology us Izabela Diamond MD CHEMISTRY ORDERABLES Final Res ult [facility] CLIA# [id number] [address] [place] [address] from Last 3 Months or Most Recently Relevant to Health Maintenance [place] [address] [facility] MEDICAID Advance Directives For more information, please contact: [phone] * Full Code (Latest Code Status on File) Date Activated Date Inactivated Comments 12/17/2016 1:05 PM 12/27/2016 11:32 PM Care Teams Leasing Sales Consultant Relationship Specialty Start Date End Date Shravan Jones DO [address] [address] PCP - General Family Practice 12/04/16
--- OUTSIDE RECORDS SUMMARY | 2025-03-03 21:38 | XMS_ITS | Encounter Summary ---
Author Organization [employer] Address [address] [place] [address] Care Team Providers Care Flexographic Press Plate Setter Name Role Phone Shravan Jones DO Primary Care Provider [phone] Encounter Details Date Type Department Care Team [...] and Family Not on file 09/22/2023 Attends Mandaeism Services Not on file 09/21 Active Member [...] on file Legal Sex Female 3:34 PM AUTOMATIC DRILL OPERATOR Gender Identity Not on file Sexual Orientation Not on file documented as of this encounter Plan of Treatment Upcoming Encounters Date Type Department Care Team (Late st Contact Info) Description 05/19/2025 9:30 AM AUTOMATIC DRILL OPERATOR Office Visit [facility]- [place] [address] [place] [address] Abel Menon DO [address] [facility] [address] [place] [phone] documented as of this encounter Visit Diagnoses Not on filedocumented in this encounter Care Teams Flexographic Press Plate Setter Relationship Specialty Start Date End Date Shravan Jones DO [address] [phone] PCP - General Family Practice 12/04/16 documented as of this encounter
--- OUTSIDE RECORDS SUMMARY | 2025-03-03 21:38 | XMS_ITS | Encounter Summary ---
Author Organization [facility] Address [address] [place] [address] Phone Care Team Providers Care Adult Basic Education Instructor Name Role Phone Alexis Garcia MD Primary Care Provider [phone] Encounter Details Date Type Department Care Team (Late st Contact Info) Description 04/16/2022 Orders Only [facility] [address] [place] [address] Chronic kidney disease, Stage IV [...] (severe) documented in this encounter Care Teams Adult Basic Education Instructor Relationship Specialty Start Date End Date Alexis Garcia MD [address] [place] [address] PCP - General Family Medicine 04/16/22 documented as of this encounter
--- OUTSIDE RECORDS SUMMARY | 2025-03-03 21:38 | XMS_ITS | Encounter Summary ---
Author Organization [facility] Address [address] [place] [address] Care Team Providers Care Fitness Floor Attendant Name Role Phone Shravan Jones DO Primary Care Provider [phone] Encounter Details Date Type Department Care Team (Late st Contact Info) Description 03/02/2025 External Device Data STL ABSTRACTION Provider, Abstract [...] and Family Not on file 09/22/2023 Attends Mandaen Services Not on file 09/21 Active Member [...] on file Legal Sex Female 3:34 PM MOUNTING INSPECTOR Gender Identity Not on file Sexual Orientation Not on file documented as of this encounter Plan of Treatment Upcoming Encounters Date Type Department Care Team (Late st Contact Info) Description 05/19/2025 9:30 AM MOUNTING INSPECTOR Office Visit [facility]- [place] [address] [place] [address] Abel Menon DO [address] [facility] [address] [place] [phone] documented as of this encounter Visit Diagnoses Not on filedocumented in this encounter Care Teams Fitness Floor Attendant Relationship Specialty Start Date End Date Shravan Jones DO [address] [address] PCP - General Family Practice 12/04/16 documented as of this encounter
--- OUTSIDE RECORDS SUMMARY | 2025-03-03 21:38 | XMS_ITS | Encounter Summary ---
Author Organization [facility] [employer], [facility] Address [address] [place] [address] Phone Care Team Providers Care Library Services Assistant Name Role Phone Alexis Garcia MD Primary Care Provider [phone] Encounter Details Date Type Department Care Team (Late st Contact Info) Description 03/02/2025 Orders Only [facility] [employer] [address] [place] [address] Chey Navas MD [address] [place] [address] Social History Tobacco Use Types [...] Procedure Name Priority Date/Time Associated Diagnosis Comments HD KINETICS Routine 03/02/2025 SPECIAL CHEMISTRY Routine 03/02/2025 POST CHEMISTRY Routine 03/02/2025 IMMUNO CHEMISTRY Routine 03/02/2025 TRACE ELEMENTS Routine 03/02/2025 HEMATOLOGY Routine 03/02/2025 CHEMISTRY Routine 03/02/2025 CHEMISTRY Routine 03/02/2025 documented in this encounter Results * HD KINETICS (03/02/2025) % Urea Reduction 80 65 - 80 % [facility] 03/02/2025 03/03/2025 11: 41 AM CDT Narrative Resulting Agency Comment Specimen source: Plasma us Chey Navas MD LAB BLOOD ORDERABLES Final Re sult Performing Organization Address [facility] Co de Phone Number [facility] See order comments or contact performing lab Unknown, [place] * POST CHEMISTRY (03/02/2025) BUN Post Dialysis 11 6 - 19 mg/dL [facility] 03/02/2025 03/03/2025 11: 41 AM CDT Narrative [facility] - 03/03/2025 Unless otherwise specified, test(s) performed at: [email or web address], [address] [place] [address] COMPLIANCE REPRESENTATIVE: Jose Luis France M.D. For any questions, please call customer service at FREQUENCY:MONTHLY Resulting Agency Comment Specimen source: Plasma us Chey Navas MD LAB BLOOD ORDERABLES Final Re sult Performing Organization Address [facility] de Phone Number [facility] See order comments or contact performing lab Unknown, [place] * (ABNORMAL) SPECIAL CHEMISTRY (03/02/2025) Hemoglobin A1C 6.5(H) 4.8 - 5.9 % [facility] 03/02/2025 03/03/2025 11: 04 AM CDT Narrative Resulting Agency Comment Specimen source: Blood us Chey Navas MD LAB BLOOD BANK TEST ORDERABLE S Final Result Performing Organization Address [facility] Co de Phone Number [employer] [facility] See order comments or contact performing lab Unknown, [place] * (ABNORMAL) HEMATOLOGY (03/02/2025) Neutrophils 65.6 40.0 - 75.0 % [facility] Lymphocytes Relative 19.5 19.0 - 48.0 % [facility] Monocytes 6.1 3.0 - 10.0 % [facility] Eosinophils Relative 5.6 0.0 - 7.0 % [facility] Basophils Relative 0.9 0.0 - 1.5 % [facility] MARYBEL 2.3 0.0 - 4.0 % [facility] WBC 6.59 4.80 - 10.80 1000/mcL [facility] RBC 2.87(L) 4.20 - 5.40 mill/mcL [facility] Hematocrit 27.3(L) 37.0 - 47.0 % [facility] MCV 95 80 - 100 fl [facility] MCH 31.0 27.0 - 31.0 pg [facility] MCHC 32.6 30.0 - 36.0 g/dL [facility] RDW 13.7 11.5 - 14.5 % [facility] Hemoglobin 8.9(L) 12.0 - 16.0 g/dL [facility] Hemoglobin x 3 26.7(L) 36.0 - 48.0 % [facility] Platelets 207 130 - 400 1000/mcL [facility] 03/02/2025 03/03/2025 11: 04 AM CDT Narrative [facility] - 03/03/2025 Unless otherwise specified, test(s) performed at: [email or web address], [address] [place] [address] COMPLIANCE REPRESENTATIVE: Jose Luis France M.D. For any questions, please call customer service at FREQUENCY:MONTHLY Resulting Agency Comment Specimen source: Blood Chey Navas MD LAB BLOOD ORDERABLES Final Re sult [facility] See order comments or contact performing lab Unknown, [place] * TRACE ELEMENTS (03/02/2025) Aluminum 5 0 - 10 mcg/L [facility] Comment: This test was developed and its performance characteristics determined by [email or web address]. It has not been cleared or approved by the FDA. The laboratory is regulated under CLIA as qualified to perform high complexity testing. This test is used for clinical purposes. It should not be regarded as investigational or for research. 03/02/2025 03/03/2025 10: 54 AM CDT Narrative [facility] - 03/03/2025 Unless otherwise specified, test(s) performed at: [email or web address], [address] [place] [id number] COMPLIANCE REPRESENTATIVE: Jose Luis France M.D. For any questions, please call customer service at FREQUENCY:MONTHLY Resulting Agency Comment Specimen source: Serum us Chey Navas MD LAB BLOOD ORDERABLES Final Re sult Performing Organization Address [facility] de Phone Number [facility] See order comments or contact performing lab Unknown, [place] * IMMUNO CHEMISTRY (03/02/2025) Pathologist [facility] Hepatitis C Antibody Nonreactive Nonreactive [facility] Comment: No HCV antibody detected. The above test result was obtained using Siemens Berylliumaur XP chemiluminescent method. Results obtained with different assay methods or kits cannot be used interchangeably. S/CO Ratio 0.03 0.00 - 0.79 [facility] Comment: s/co ratio Interpretation Supplemental testing <0.80 Nonreactive No further testing required. 0.80-0.99 Equivocal HCV RNA Quantitative Real-Time PCR is recommended. 1.00->11.00 Reactive HCV RNA Quantitative Real-Time PCR is recommended to distinguish active from resolved cases. 03/02/2025 03/03/2025 11: 29 AM CDT Narrative [facility] - 03/03/2025 Unless otherwise specified, test(s) performed at: [email or web address], [address] [place] [address] COMPLIANCE REPRESENTATIVE: Jose Luis France M.D. For any questions, please call customer service at FREQUENCY:MONTHLY Resulting Agency Comment Specimen source: Serum us Chey Navas MD LAB BLOOD ORDERABLES Final Re sult Performing Organization Address [facility] de Phone [facility] See order comments or contact performing lab Unknown, [place] * (ABNORMAL) [facility] (03/02/2025) Pathologist [facility] PTH 804(H) 16 - 80 pg/mL [facility] 03/02/2025 03/03/2025 10: 56 AM CDT Narrative [facility] - 03/03/2025 Unless otherwise specified, test(s) performed at: [email or web address], [address] [place] [address] COMPLIANCE REPRESENTATIVE: Jose Luis France M.D. For any questions, please call customer service at FREQUENCY:MONTHLY Resulting Agency Comment Specimen source: Plasma Chey Navas MD LAB BLOOD ORDERABLES Final Re sult [facility] See order comments or contact performing lab Unknown, [place] * (ABNORMAL) [facility] (03/02/2025) Ferritin 698(H) 10 - 291 ng/mL [facility] BUN 54(H) 6 - 19 mg/dL [facility] Creatinine 9.18(H) 0.60 - 1.30 mg/dL [facility] BUN/Creatinine Ratio 5.9(L) 10.0 - 20.0 [facility] Sodium 136 136 - 145 mEq/L [facility] Potassium 4.5 3.5 - 5.1 mEq/L [facility] Chloride 98 96 - 108 mEq/L [facility] Bicarbonate (CO2) 22 22 - 29 mEq/L [facility] Calcium 7.9(L) 8.4 - 10.2 mg/dL [facility] Corrected Calcium 8.3(L) 8.4 - 10.2 mg/dL [facility] Comment: Corrected Calcium is not equivalent to measured Ionized Calcium. Phosphorus 7.2(H) 2.6 - 4.5 mg/dL [facility] Calcium Phosphorus Product 57(H) 0 - 54 [facility] Calcium Phosporus Product, Cor 60(H) 0 - 54 [facility] Alkaline Phosphatase 130(H) 35 - 104 U/L [facility] Total Protein 6.9 6.0 - 8.5 g/dL [facility] Albumin 3.5 3.5 - 5.2 g/dL [facility] Globulin, Total 3.4 2.0 - 4.0 g/dL [facility] A/G Ratio 1.0 1.0 - 2.0 [facility] Glucose 233(H) 70 - 100 mg/dL [facility] Magnesium 2.0 1.6 - 2.6 mg/dL [facility] Iron 125 30 - 160 mcg/dL [facility] UIBC 102(L) 155 - 355 mcg/dL [facility] TIBC 227 185 - 515 mcg/dL [facility] Iron Saturation (TSat) 55 20 - 55 % [facility] 03/02/2025 03/03/2025 11: 29 AM CDT Narrative [facility] - 03/03/2025 Unless otherwise specified, test(s) performed at: [email or web address], [address] [place] [address] COMPLIANCE REPRESENTATIVE: Jose Luis France M.D. For any questions, please call customer service at FREQUENCY:MONTHLY Resulting Agency Comment Specimen source: Serum us Chey Navas MD LAB BLOOD ORDERABLES Edited R esult - Final [facility] See order comments or contact performing lab Unknown, [place] documented in this encounter Visit Diagnoses Not on filedocumented in this encounter Care Teams Library Services Assistant Relationship Specialty Start Date End Date Alexis Garcia MD [address] [place] [address] PCP - General Family Medicine 04/16/22 documented as of this encounter
--- OUTSIDE RECORDS SUMMARY | 2025-03-03 21:38 | XMS_ITS | Encounter Summary ---
Author Organization [employer] Address [address] [place] [address] Care Team Providers Care Composite Engineer Name Role Phone Shravan Jones DO Primary Care Provider [phone] Encounter Details Date Type Department Care Team [...] and Family Not on file 09/22/2023 Attends Worship Services Not on file 09/21 Active Member [...] on file Legal Sex Female 3:34 PM CHEMICAL DETECTION EXPERT Gender Identity Not on file Sexual Orientation Not on file documented as of this encounter Plan of Treatment Upcoming Encounters Date Type Department Care Team (Late st Contact Info) Description 05/19/2025 9:30 AM CHEMICAL DETECTION EXPERT Office Visit [facility] [place] [address] [place] [address] Abel Menon DO [address] [facility] [address] [place] [address] documented as of this encounter Visit Diagnoses Not on filedocumented in this encounter Care Teams Composite Engineer Relationship Specialty Start Date End Date Shravan Jones DO [address] [address] PCP - General Family Practice 12/04/16 documented as of this encounter
--- OUTSIDE RECORDS SUMMARY | 2025-03-03 21:38 | XMS_ITS | Encounter Summary ---
Author Organization [facility] Address [address] [place] [address] Care Team Providers Care Gas Fitter Name Role Phone Shravan Jones DO Primary Care Provider [phone] Encounter Details Date Type Department Care Team (Late st Contact Info) Description 01/09/2017 Lab Requisition [facility] Laboratory Services [facility] [address] [place] [address] Izabela Diamond MD NO ADDRESS ON FILE Social History Tobacco Use Types Packs/Day Years Used Date Smoking Tobacco: Every Day Cigarettes Comments:pt lethargic Comments Unknown Sex and Gender Information Value Date Recorded Sex Assigned at Not on file Legal Sex Female 4:38 AM NICU RN Gender Identity Not on file Sexual Orientation [...] - 2.6 mg/dL 01/09/2017 5:53 AM T [facility] Blood 01/09/2017 3:15 AM CDT 01/09/2017 5:12 AM CDT [facility] - 01/09/2017 5:53 AM CDT Due to Cotton Weigher Operator update, MG+ reference range has changed from 1.8 - 2.4 mg/dL to the new reference range of 1.6 - 2.6 mg/dL. This will have limited patient impact. us Izabela Diamond MD CHEMISTRY ORDERABLES Final Res ult [facility] CLIA# [id number] [address] [place] [address] * (ABNORMAL) COMPREHENSIVE METABOLIC PANEL (01/09/2017 3:15 AM CDT) SODIUM 139 136 - 145 mmol/L 01/09/2017 5:53 AM CDT [facility] POTASSIUM 4.1 3.5 - 5.1 mmol/L 01/09/2017 5:53 AM T [facility] CHLORIDE 101 98 - 107 mmol/L 01/09/2017 5:53 AM T [facility] CO2 28 21 - 32 mmol/L 01/09/2017 5:53 AM T [facility] CALCIUM 8.8 8.4 - 10.1 mg/dL 01/09/2017 5:53 AM T [facility] BUN 18(H) 7 - 17 mg/dL 01/09/2017 5:53 AM T [facility] CREATININE 0.73 0.55 - 1.02 mg/dL 01/09/2017 5:53 AM T [facility] GLUCOSE 182(H) 74 - 106 mg/dL 01/09/2017 5:53 AM T [facility] TOTAL PROTEIN 8.4(H) 6.4 - 8.2 g/dL 01/09/2017 5:53 AM T [facility] ALBUMIN 2.5(L) 3.4 - 5.0 g/dL 01/09/2017 5:53 AM CDT [facility] BILIRUBIN TOTAL 0.2 0.2 - 1.0 mg/dL 01/09/2017 5:53 AM CDT [facility] ALKALINE PHOSPHATASE 99 25 - 100 U/L 01/09/2017 5:53 AM CDT [facility] AST 30 15 - 37 U/L 01/09/2017 5:53 AM CDT [facility] ALT 27 13 - 61 U/L 01/09/2017 5:53 AM CDT [facility] GFR >60 >=60 mL/min/1.7 3 sq meter 01/09/2017 5:53 AM T [facility] Comment: eGFR has not been [...] 3 sq meter 01/09/2017 5:53 AM CDT [facility] ANION GAP 10 4 - 30 mmol/L 01/09/2017 5:53 AM T [facility] Blood 01/09/2017 3:15 AM CDT 01/09/2017 5:12 AM CDT us Izabela Diamond MD CHEMISTRY ORDERABLES Final Res ult [facility] CLIA# [id number] [address] [place] [address] * (ABNORMAL) CBC WITH DIFFERENTIAL (01/09/2017 3:15 AM CDT) WBC 8.7 4.5 - 11.0 K/uL 01/09/2017 5:20 AM [facility] RBC 4.63 4.20 - 5.40 M/uL 01/09/2017 5:20 AM [facility] HEMOGLOBIN 11.3(L) 12.0 - 16.0 g/dL 01/09/2017 5:20 AM [facility] HEMATOCRIT 36.8 36.0 - 46.0 % 01/09/2017 5:20 AM [facility] MCV 79.5(L) 84.0 - 103.0 fL 01/09/2017 5:20 AM [facility] MCH 24.4(L) 27.0 - 34.0 pg 01/09/2017 5:20 AM [facility] MCHC 30.7 30.0 - 35.0 g/dL 01/09/2017 5:20 AM [facility] RDW 17.3(H) 11.0 - 14.5 % 01/09/2017 5:20 AM [facility] RDW-STDEV 50.4 37.0 - 54.0 fL 01/09/2017 5:20 AM [facility] PLATELETS 463(H) 140 - 440 K/uL 01/09/2017 5:20 AM [facility] MPV 9.9 8.9 - 12.8 fL 01/09/2017 5:20 AM [facility] NEUTROPHILS 46 42 - 75 % 01/09/2017 5:20 AM [facility] LYMPHOCYTES 33 24 - 44 % 01/09/2017 5:20 AM [facility] MONOCYTES 8 2 - 10 % 01/09/2017 5:20 AM [facility] EOSINOPHILS 11(H) 0 - 7 % 01/09/2017 5:20 AM [facility] BASOPHILS 1 0 - 1 % 01/09/2017 5:20 AM [facility] IMMATURE GRANULOCYTES 0 0 - 2 % 01/09/2017 5:20 AM [facility] NEUTROPHIL ABSOLUTE 4.05 2.00 - 8.00 K/uL 01/09/2017 5:20 AM CDT [facility] LYMPHOCYTE ABSOLUTE 2.86 1.20 - 4.00 K/uL 01/09/2017 5:20 AM CDT [facility] MONOCYTE ABSOLUTE 0.73(H) 0.10 - 0.60 K/uL 01/09/2017 5:20 AM CDT [facility] EOSINOPHIL ABSOLUTE 0.95(H) 0.00 - 0.70 K/uL 01/09/2017 5:20 AM CDT [facility] BASOPHILS ABSOLUTE 0.11 0.00 - 0.20 K/uL 01/09/2017 5:20 AM CDT [facility] IMMATURE GRANULOCYTES ABSOLUTE 0.03 0.00 - 0.10 K/uL 01/09/2017 5:20 AM CDT [facility] Blood 01/09/2017 3:15 AM CDT 01/09/2017 5:12 AM CDT us Izabela Diamond MD HEMATOLOGY ORDERABLES Final Re sult [facility] CLIA# [id number] [address] [place] [address] * (ABNORMAL) HEMOGLOBIN A1C (01/09/2017 2:52 AM CDT) HEMOGLOBIN A1C 8.9(H) 4.0 - 6.0 % 01/09/2017 1:31 PM CDT [facility] EST. AVG GLUCOSE, A1C 209 mg/dL 01/09/2017 1:31 PM CDT [facility] Blood 01/09/2017 2:52 AM CDT 01/09/2017 6:53 AM CDT Narrative [facility] - 01/09/2017 1:31 PM CDT Test performed on Inflection instrumentation using HPLC methodology us Izabela Diamond MD CHEMISTRY ORDERABLES Final Res ult [facility] CLIA# [id number] [address] [place] [address] documented in this encounter Visit Diagnoses Not on filedocumented in this encounter Care Teams Gas Fitter Relationship Specialty Start Date End Date Shravan Jones DO [address] [address] PCP - General Family Practice 12/04/16 documented as of this encounter
--- OUTSIDE RECORDS SUMMARY | 2025-03-03 21:38 | XMS_ITS | Clinical Summary ---
Author Organization [employer] Address [address] [facility] Attn: [place] [address] Care Team Providers Care Cargo Service Supervisor Name Role Phone Shravan Jones DO [...] subcutaneous injection. Active naloxone (NARCAN) 4 mg/spray [place], Non-Aerosol EMERGENCY USE ONLY: Administer 1 spray [...] regarding vascular access for dialysis for ESRD ([facility]) Take 1 Tablet (5 mg) by mouth [...] troponin 09/22/2023 Coronary artery disease invo lving morongo coronary artery of morongo heart without angina pectoris 09/21/2023 End stage [...] Encounters Date Type Department Care Team Description 03/02/2025 External Device Data ST[facility] ABSTRACTION Provider, Abstract 03/02/2025 External Device Data [facility] ABSTRACTION Provider, Abstract 03/02/2025 External Device Data [facility] ABSTRACTION Provider, Abstract 02/23/2025 External Device Data ST[facility] ABSTRACTION Provider, Abstract 02/09/2025 External Device Data ST[facility] ABSTRACTION Provider, Abstract 02/02/2025 External Device Data STL ABSTRACTION Provider, Abstract 01/12/2025 External Device Data STL ABSTRACTION Provider, Abstract 12/30/2024 Orders Only [facility]- [address] [place] [phone] Elizabeth Dougherty, SUZANNE Fatty liver (Primary Dx) 12/15/2024 External Device Data STL ABSTRACTION Provider, Abstract 12/04/2024 7:00 AM CDT - 12/04/2024 11:59 PM CDT Hospital Encounter [facility] Interventional Radiology [address] [place] [facility] [place] [phone] Chey Navas MD Birlew, Ryan Avery, MD Discharge Disposition: Home or Self Care 12/03/2024 Telephone [facility] Interventional Radiology [address] [place] [address] [place] [address] Stefani Zimmer underground utility locator from Last 3 Months Immunizations Immunization Administration [...] and Family Not on file 09/22/2023 Attends [employer] Not on file 09/21 Active Member [...] on file Legal Sex Female 3:34 PM HOST AND HOSTESS Gender Identity Not on file Sexual Orientation [...] st Contact Info) Description 05/19/2025 9:30 AM HOST AND HOSTESS Office Visit [facility]- [place] [address] [facility] [address] [place] [address] Abel Menon D, DO [address] [address] Health Maintenance Due Date Last Done [...] 10/11/1999, 09/06/1999 Medical Devices Implanted Type Area Secured Entrance Monitor Device Identifier Shelf Expiration Date Model / Serial / Lot Max dailym Flour [id number] - [id number] Implanted:Qty : 2 on 12/17/2016 by Deandre Alan MD Biological Left: Lung CR BARD- DAVOL INC 09/19/2019 [id number] / / [id number] Cath Dialysis Glidepath 14.5fr 24cm Std [id number] - [id number] Implanted:Qty : 1 on 03/18/2024 by Asif Mcclellan MD at [facility] Catheter Right: Chest BARD ANGEL VASC 09/21/2025 [id number] / / [id number] Clip Ligating Horizon Red 550334 - Csc - [id number] Implanted:Qty : 1 on 08/10/2024 by Chato Fitch MD at [facility] Clip Left: Arm TELE[employer]LEX INC [id number] 05/16/2029 [id number] / / [id number] Clip Ligating Horizon Med Ti 221224 - Csc - [id number] Implanted:Qty : 1 on 08/10/2024 by Chato Fitch MD at [facility] Clip Left: Arm TELEFLEX- WECK CLOSURE SYS [id number] 03/31/2029 [id number] / / [id number] Plant Wire Chief Ligaclip Sml Mcs20 - [id number] Implanted:Qty : 1 on 08/10/2024 by Chato Fitch MD at [facility] Clip Left: Arm J&J- [employer]ICON [employer] [id number] 03/23/2029 MCS20 / / [id number] Closure Perclose Prostyle Sut Mediate 91652-78 - [id number] Implanted:Qty : 1 on 09/24/2023 by Janell Beauchamp MD at [facility] Closure Device N/A: Groin LOVE- VASC DEVICE [id number] 06/23/2025 07748-15 / / [id number] Closure Perclose Prostyle Sut Mediate 36527-59 - [id number] Implanted:Qty : 1 on 10/24/2023 by Janell Beauchamp MD at [facility] Closure Device Right: Groin LOVE- VASC DEVICE [id number] 07/24/2025 25749-13 / / [id number] Oil Slc 8.5ml [id number] - Sgtin:[id number] Implanted:Qty : 1 on 06/23/2024 by Janey Carrera MD at [facility] Right: Eye [facility] 12/21/2026 [id number] / GTIN:[id number] / [id number] Graft Vasc Propaten 4-9gtn40sq Q638234x - [id number] Implanted:Qty : 1 on 08/10/2024 by Chato Fitch MD at [facility] Graft Left: Arm [employer] [id number] 05/21/2027 [id number] / [id number] / Agent Hemostat Surgicel 2x3in 3s - [id number] Implanted:Qty : 1 on 08/10/2024 by Chato Fitch MD at [facility] Hemostatic Left: Arm J&J- ETHICON INC [id number] 12/21/20283S / / [id number] Hemostatic Surgiflo 8ml W/ Thrombin 2994 - [id number] Implanted:Qty : 1 on 08/10/2024 by Chato Fitch MD at [facility] Hemostatic Left: Arm J&J- ETHICON INC [id number] 10/21/2025 2994 / / [id number] Agent Hemostat Surgicel 2x3in 1952s - [id number] Implanted:Qty : 1 on 08/10/2024 by Chato Fitch MD at [facility] Hemostatic Left: Arm J&J- ETHICON INC [id number] 12/21/2028 1953S / / [id number] Stent Synergy Xd 3.0x48mm Evrlms El[place] [id number] 0 - [id number] Implanted:Qty : 1 on 09/24/2023 by Janell Beauchamp MD at [facility] Stent N/A: Coronary BOSTON [employer] GENEV[employer]EVE [id number] 03/31/2025 [id number] / / [id number] Stent Synergy Xd 2.67p29zl Evrlms [place] [id number] 0 - [id number] Implanted:Qty : 1 on 10/24/2023 by Janell Beauchamp MD at [facility] Stent Left: Coronary [employer] [id number] 08/19/2024 [id number] 220 / / [id number] Control Implant Funmi Procedures Procedure Name Priority Date/Time Associated Diagnosis Comments IR FISTULOGRAM Routine 12/04/2024 9:05 AM CDT ESRD (end stage renal disease) ([facility]) LIPID PANEL Routine 09/21/2023 6:47 PM CDT [...] dialysis. DIAGNOSIS: ESRD (end stage renal disease) ([facility]). Medications: Fentanyl and versed were titrated to effect. Moderate (conscious) sedation for this procedure was performed with continuous physician supervision. Medical history, physical exam, drug dosages, routes of drug administration, monitoring data, and precise times of service are documented in the medical record on the [facility]-approved form, 'Sedative/Analgesic Administration for Diagnostic [...] transition dilator is exchanged for a 6 Lithuanian vascular sheath. An 8 mm angioplasty balloon [...] dialysis. DIAGNOSIS: ESRD (end stage renal disease) ([facility]). Medications: Fentanyl and versed were titrated to effect. Moderate (conscious) sedation for this procedure was performed with continuous physician supervision. Medical history, physical exam, drug dosages, routes of drug administration, monitoring data, and precise times of service are documented in the medical record on the [facility]-approved form, 'Sedative/Analgesic Administration for Diagnostic [...] transition dilator is exchanged for a 6 Lithuanian vascular sheath. An 8 mm angioplasty balloon [...] (ABNORMAL) LIPID PANEL (09/21/2023 6:47 PM CDT) [facility] Signature CHOLESTEROL 96 <200 mg/dL 09/21/2023 10:29 PM CDT [facility] TRIGLYCERIDE 164(H) <150 mg/dL 09/21/2023 10:29 PM CDT [facility] HDL 36(L) 40 - 59 mg/dL 09/21/2023 10:29 PM CDT [facility] LDL CALCULATED 27 <100 mg/dL 09/21/2023 10:29 PM CDT [facility] NON-HDL CHOLESTEROL 60 <130 mg/dL 09/21/2023 10:29 PM T [facility] Blood Venipuncture / Unknown 09/21/2023 6:47 PM CDT 09/21/2023 7:10 PM CDT Narrative [facility] - 09/21/2023 10:29 PM CDT TOTAL [...] ORDERABLES Final R esult Performing Organization Address City/[facility] Co de Phone Number [facility] CLIA # [id number] [facility] [address] * (ABNORMAL) HEMOGLOBIN A1C (09/21/2023 6:46 PM CDT) HEMOGLOBIN A1C 6.8(H) <=5.6 % 09/23/2023 9:24 AM CDT [facility] EST. AVG GLUCOSE, A1C 148 mg/dL 09/23/2023 9:24 AM CDT [facility] Blood Venipuncture / Unknown 09/21/2023 6:46 PM CDT 09/21/2023 7:08 PM CDT Narrative [facility] - 09/23/2023 9:24 AM CDT HGB A1C INTERPRETATION NORMAL: <5.7% PRE-DIABETES: 5.7 - 6.4% DIABETES: 6.5% OR GREATER Luiz aLcy MD CHEMISTRY ORDERABLES Final R esult Performing Organization Address [facility] Co de Phone Number [facility] CLIA # [id number] [address] [phone] from Last 3 Months or Most Recently Relevant to Health Maintenance Insurance MED[place]ARE PART A AND B Advance Directives For more information, please contact: [phone] * Full Code (Latest Code Status on File) Date Activated Date Inactivated Comments 10/24/2023 2:34 PM 10/25/2023 11:47 AM * Full Code Date Activated Date Inactivated Comments 10/24/2023 9:13 AM 10/24/2023 2:34 PM * Full Code Date Activated Date Inactivated Comments 09/24/2023 3:14 PM 09/25/2023 9:51 PM * Full Code Date Activated Date Inactivated Comments 09/21/2023 5:50 PM 09/24/2023 3:14 PM Care Teams Cargo Service Supervisor Relationship Specialty Start Date End Date Shravan Jones DO [address] [address] PCP - General Family Practice 12/04/16
--- OUTSIDE RECORDS SUMMARY | 2025-03-03 21:38 | XMS_ITS | Clinical Summary ---
Author Organization [facility] Facility Address [address] [address] Care Team Providers Care Cashiers Supervisor Name Role Phone Alexis Garcia MD Primary Care Provider [phone] Encounters Date Type Department Care Team Description 03/02/2025 Orders Only [place] [facility], [facility] [address] [place] [phone] Chey Navas MD 03/02/2025 Treatment [facility], [facility] [address] [place] [phone] Melissa Wiley NP End stage renal disease; Dependence on renal dialysis 02/18/2025 Orders Only [place] [facility], [facility] [address] [place] [address] Chey Navas MD 02/11/2025 Orders Only [place] [facility], [facility] [address] [place] [address] Chey Navas MD 02/09/[address] [place] [address] [facility], [facility] [address] [place] [phone] Chey Navas MD End stage renal disease; Dependence on renal dialysis 02/04/2025 Orders Only [place] [facility], [facility] [address] [place] [address] Chey Navas MD 02/02/[address] [place] [address] Doctolibrology [employer], [facility] [address] [place] [address] Karlene Cespedes NP End stage renal disease; Dependence on renal dialysis 01/28/[address] [place] [address], [facility] [address] [place] [address] Melissa Wiley NP End stage renal disease; Dependence on renal dialysis 01/28/2025 Orders Only [facility], [facility] [address] [place] [phone] Chey Navas MD 01/21/2025 Orders Only [facility], [facility] [address] [place] [address] Chey Navas MD 01/14/2025 Orders Only [facility], [facility] [address] [place] [phone] Chey Navas MD 01/12/[address] [place] [address], [facility] [address] [place] [phone] Chey Navas MD End stage renal disease; Dependence on renal dialysis 01/07/2025 Orders Only [facility], [facility] [address] [place] [phone] Chey Navas MD 01/05/[address] [place] [address], [facility] [address] [place] [phone] Karlene Cespedes NP End stage renal disease; Dependence on renal dialysis 12/31/2024 Orders Only [facility], [facility] [address] [place] [address] Chey Navas MD 12/29/2024 TCM in Dialysis Clinic [address] [place] [address], [facility] [address] [place] [phone] Meilssa Wiley NP 12/29/[address] [place] [address], [facility] [address] [place] [phone] Melissa Wiley, HAYDEE End stage renal disease; Dependence on renal dialysis 12/24/2024 [facility], [facility] [address] [place] [address] Chey Navas MD 12/22/2024 Treatment 8[facility], [facility] [address] [place] [phone] Melissa Wiley NP End stage renal disease; Dependence on renal dialysis 12/17/2024 Orders Only [facility], [facility] [address] [place] [address] Chey Navas MD 12/15/2024 Treatment 8[facility], [facility] [address] [place] [address] Karlene Cespedes NP End stage renal disease; Dependence on renal dialysis 12/10/2024 Orders Only [facility], [facility] [address] [place] [address] Chey Navas MD 12/10/[address] [place] [address], [facility] [address] [place] [phone] Chey Navas MD End stage renal disease; Dependence on renal dialysis 12/07/2024 Refill [facility], [facility] [address] [place] [phone] Melissa Wiley NP 12/03/2024 Orders [facility], [facility] [address] [place] [address] Chey Navas MD 12/01/[address] [place], [place] [address]rology [facility], [facility] [address] [place] [phone] Karlene Cespedes NP End stage renal disease; [...] (#1) 2025 Diabetes: Hemoglobin A1C 02/26/2025 025, 11/26/2024, 08/27/2024, Additional history exists Diabetes: Ophthalmology Exam 05/20/2025 05/20/2024 Procedures Procedure Name Priority Date/Time Associated Diagnosis Comments HD KINETICS Routine 03/02/2025 POST CHEMISTRY Routine 03/02/2025 SPECIAL CHEMISTRY Routine 03/02/2025 HEMATOLOGY Routine 03/02/2025 TRACE ELEMENTS Routine 03/02/2025 IMMUNO CHEMISTRY Routine 03/02/2025 CHEMISTRY Routine 03/02/2025 CHEMISTRY Routine 03/02/2025 HEMATOLOGY Routine 02/18/2025 HEMATOLOGY Routine 02/11/2025 HEMATOLOGY [...] 12/17/2024 HEMATOLOGY Routine 12/10/2024 HEMATOLOGY Routine 12/03/2024 from Last 3 Months Results * HD KINETICS (03/02/2025) Only the most recent of3 resultswithin the time period is included. % Urea Reduction 80 65 - 80 % [facility] 03/02/2025 03/03/2025 11: 41 AM CDT Narrative Resulting Agency Comment Specimen source: Plasma us Chey Navas MD LAB BLOOD ORDERABLES Final Re sult [facility] See order comments or contact performing lab Unknown, [place] * (ABNORMAL) SPECIAL CHEMISTRY (03/02/2025) [facility] Hemoglobin A1C 6.5(H) 4.8 - 5.9 % [facility] 03/02/2025 03/03/2025 11: 04 AM CDT Narrative Resulting Agency Comment Specimen source: Blood us Chey Navas MD LAB BLOOD BANK TEST ORDERABLE S Final Result Performing Organization Address [facility] de Phone Number [facility] See order comments or contact performing lab Unknown, [place] * POST CHEMISTRY (03/02/2025) Only the most recent of3 resultswithin the time period is included. [facility] BUN Post Dialysis 11 6 - 19 mg/dL [facility] 03/02/2025 03/03/2025 11: 41 AM CDT Narrative [facility] - 03/03/2025 Unless otherwise specified, test(s) performed at: [facility], [address] [place] [address] MACHINE STUFFER: Jose Luis France M.D. For any questions, please call customer service at FREQUENCY:MONTHLY Resulting Agency Comment Specimen source: Plasma us Chey Navas MD LAB BLOOD ORDERABLES Final Re sult Performing Organization Address [facility] de Phone Number [facility] See order comments or contact performing lab Unknown, [place] * IMMUNO CHEMISTRY (03/02/2025) [facility] Hepatitis C Antibody Nonreactive Nonreactive [facility] Comment: No HCV antibody detected. The above test result was obtained using Siemens Centaur XP chemiluminescent method. Results obtained with different assay methods or kits cannot be used interchangeably. S/CO Ratio 0.03 0.00 - 0.79 [facility] Comment: s/co ratio Interpretation Supplemental testing <0.80 Nonreactive No further testing required. 0.80-0.99 Equivocal HCV RNA Quantitative Real-Time PCR is recommended. 1.00->11.00 Reactive HCV RNA Quantitative Real-Time PCR is recommended to distinguish active from resolved cases. 03/02/2025 03/03/2025 11: 29 AM CDT Narrative [facility] - 03/03/2025 Unless otherwise specified, test(s) performed at: [facility], [address] [place] [id number] MACHINE STUFFER: Jose Luis France M.D. For any questions, please call customer service at FREQUENCY:MONTHLY Resulting Agency Comment Specimen source: Serum Chey Navas MD LAB BLOOD ORDERABLES Final Re sult [facility] See order comments or contact performing lab Unknown, [place] * TRACE ELEMENTS (03/02/2025) Pathologist [facility] Aluminum 5 0 - 10 mcg/L [facility] Comment: This test was developed and its performance characteristics determined by [facility]. It has not been cleared or approved by the FDA. The laboratory is regulated under CLIA as qualified to perform high complexity testing. This test is used for clinical purposes. It should not be regarded as investigational or for research. 03/02/2025 03/03/2025 10: 54 AM CDT Narrative [facility] - 03/03/2025 Unless otherwise specified, test(s) performed at: [facility], [address] [place] [id number] MACHINE STUFFER: Jose Luis France M.D. For any questions, please call customer service at FREQUENCY:MONTHLY Resulting Agency Comment Specimen source: Serum Chey Navas MD LAB BLOOD ORDERABLES Final Re sult [facility] See order comments or contact performing lab Unknown, [place] * (ABNORMAL) HEMATOLOGY (03/02/2025) Only the most recent of13 resultswithin the time period is included. Neutrophils 65.6 40.0 - 75.0 % [facility] Lymphocytes Relative 19.5 19.0 - 48.0 % [facility] Monocytes 6.1 3.0 - 10.0 % [facility] Eosinophils Relative 5.6 0.0 - 7.0 [...] 03/02/2025 03/03/2025 11: 04 AM CDT Narrative [facility] - 03/03/2025 Unless otherwise specified, test(s) performed at: [facility], [address] [place] [id number] MACHINE STUFFER: Jose Luis France M.D. For any questions, please call customer service at FREQUENCY:MONTHLY Resulting Agency Comment Specimen source: Blood us Chey Navas MD LAB BLOOD ORDERABLES Final Re sult [facility] See order comments or contact performing lab Unknown, [place] * (ABNORMAL) [facility] (03/02/2025) Only the most recent of6 resultswithin the time period is included. PTH 804(H) 16 - 80 pg/mL [facility] 03/02/2025 03/03/2025 10: 56 AM CDT Narrative [facility] - 03/03/2025 Unless otherwise specified, test(s) performed at: [facility] [address] MACHINE STUFFER: Jose Luis France M.D. For any questions, please call customer service at FREQUENCY:MONTHLY Resulting Agency Comment Specimen source: Plasma us Chey Navas MD LAB BLOOD ORDERABLES Final Re sult [facility] See order comments or contact performing lab Unknown, [place] * [facility] Results (01/28/2025) Only the most recent of2 resultswithin the time period is included. WSTDKT/V 2.6 [facility] eKdrt/V 1.56 [facility] nPCR_HD 1.12 [facility] spKt/V (Daugirdas II) 1.79 [facility] eKt/V Gotch 1.56 [facility] [place] eNPCR 1.05 [facility] [place] PCR 57.64 [facility] spKt/V Gotch 1.81 [facility] eKt/V ([place]) 1.55 [facility] 01/28/2025 01/28/2025 [facility] Ordering Provider LAB BLOOD ORDERABLES Final Result Performing Organization Address City/[facility]/ZIP Co de Phone Number [facility] Contact Performing lab Unknown, [place] from Last 3 Months Insurance Medicaid [place] ([id number]) Medicare Care Teams Cashiers Supervisor Relationship Specialty Start Date End Date Alexis Garcia MD [address] [place] [address] PCP - General Family Medicine 04/16/22
--- OUTSIDE RECORDS SUMMARY | 2025-03-03 21:38 | XMS_ITS | Encounter Summary ---
Author Organization [place] [facility] [place], [facility] Address [address] [place] [address] Phone Care Team Providers Care Solar Applications Development Engineer Name Role Phone Alexis Garcia MD Primary Care Provider [phone] Encounter Details Date Type Department Care Team (Late st Contact Info) Description 12/29/2024 TCM in Dialysis Clinic 8[facility] [place], [facility] [address] [place] [address] Yann Lozano NP [address] [place] [address] Social History Tobacco Use Types [...] CDT Patient: Donita Aguilar : 1985 C: [facility] Note Type: Dialysis TCM Service Date: 12/29/2024 The patient was seen for a ghfl-[id number] visit as part of Transitional Care Management services. Attending Glass Artist: MACHO JOHANSEN Dialysis Location: [facility] Schedule: Shift: 2 INTERACTIVE CONTACT This byxz-[id number]-flhh visit occurred within 2 business days of the patient?s discharge. COMMENTS: Seen on HD machine during dialysis HOSPITALIZATION SUMMARY Patient transitioned from: Hospital Patient transitioned to: Home Admit Date: 12/26/2024 Discharge Date: 12/28/2024 Discharged info reviewed: No outstanding diagnostic tests and treatments Reason for admission: Admission Dx: CP Discharge Dx: Non-cardiac chest pain ESRD Atherosclerotic heart disease of [place] coronary artery with other forms of angina [...] Three times a day With Meals. Current [facility] Allergies Allergen: acetaminophen Reaction: Nausea/Vomiting TREATMENT [...] to follow with cardiology, pcp, pulmonology and front end developer javascript html css as noted on discharge. EDUCATION Education relevant [...] or secondary infection VISIT DIAGNOSES CPT Code 98205 - High complexity, seen within 7 days of discharge. I20.9 Angina pectoris (HCC) COMMENTS: Verified she has nitroglycerin on hand at home: reviewed appropriate usage. Instructed to call cardiology for follow up appointment K76.0 Fatty (change of) liver, not elsewhere classified COMMENTS: Newly dx on imaging. Per hospital records, has been referred to front end developer javascript html css. Monitor for liver dysfunction, assess for any needed support J18.9 Pneumonia, unspecified organism COMMENTS: Monitor for impaired perfusion, fever/chills, increased SOB. If symptoms present, send for CXray. Advised to call pulmonology for follow up as referred by hospital I25.118 Atherosclerotic heart disease of [place] coronary artery with other forms of angina pectoris COMMENTS: RCA is moderate size and caliber vessel which is dominant had proximal 40% stenosis. Left main has luminal irregularity with distal 10% stenosis. Cardiology recommended medical management. Negative for angina on assessment today Reviewed symptoms, usage of nitro: instructed to call cardiology for follow up appt. I2.880 Atherosclerosis of other coronary artery bypass graft(s) [...] on filedocumented in this encounter Care Teams Solar Applications Development Engineer Relationship Specialty Start Date End Date Alexis Garcia MD [address] [place] [address] PCP - General Family Medicine 04/16/22 documented as of this encounter
--- OUTSIDE RECORDS SUMMARY | 2025-03-03 21:38 | XMS_ITS | Encounter Summary ---
Author Organization [facility] Address [address] [place] [address] Care Team Providers Care Event Security Officer Name Role Phone Shravan Jones DO Primary Care Provider Encounter Details Date Type Department Care Team (Late st Contact Info) Description 01/07/2017 Lab Requisition [facility] [address] [place] [address] David Ortega MD [address] [place] [address] Social History Tobacco Use Types Packs/Day Years Used Date Smoking Tobacco: Every Day Cigarettes Comments:pt lethargic Comments Unknown Sex and Gender Information Value Date Recorded Sex Assigned at Not on file Legal Sex Female 4:38 AM BUYER LIAISON Gender Identity Not on file Sexual Orientation [...] Detected Not Detected 01/07/2017 8:08 PM CDT [facility] Stool STOOL SPECIMEN / Unknown 01/07/2017 1:54 PM CDT 01/07/2017 6:53 PM CDT Narrative [facility] [employer] [facility] - 01/07/2017 8:08 PM CDT This [...] MICROBIOLOGY - GENERAL ORDERAB LES Final Result [facility] [facility] CLIA# [id number] [address] [place] [address] documented in this encounter Visit Diagnoses Not on filedocumented in this encounter Care Teams Event Security Officer Relationship Specialty Start Date End Date Shravan Jones DO [address] [address] PCP - General Family Practice 12/04/16 documented as of this encounter
--- OUTSIDE RECORDS SUMMARY | 2025-03-03 21:38 | XMS_ITS | Encounter Summary ---
Author Organization [place] [email or web address], [facility] Address [address] [place] [address] Phone Care Team Providers Care Spray Drier Operator Name Role Phone Alexis Garcia MD Primary Care Provider [phone] Encounter Details Date Type Department Care Team (Late st Contact Info) Description 03/02/2025 [email or web address] [address] [place] [address] Yann Lozano NP [address] [place] [address] End stage renal disease; Dependence [...] encounter Miscellaneous Notes * Dialysis Note - Yann Lozano NP - 03/02/2025 12:00 AM CDT Patient: Donita Aguilar : 1985 C: [facility] Note Type: Dialysis Rounds-Comp Service Date: 03/02/2025 This patient was personally seen [id number] for a complete visit as part of routine monthly dialysis care for end stage renal disease. Attending Mountain Guide: MACHO JOHANSEN Dialysis Location: [facility] Schedule: Shift: 2 OVERVIEW COMMENTS: Seen on HD. PATIENT HISTORY COMMENTS: Admitted from 02/22/2025-02/26/2025: CP. Work up negative for acute findings. Hospital D/C nifedipine, began isosorbide mononitrate 30 mg XR, one daily. Reviewed change with patient. HOME MEDICATIONS Medications reviewed with changes as indicated. Current [facility] Outpatient Medications amlodipine 5 mg tablet Take 1 by mouth every morning. Anti-Diarrheal (loperamide) 2 mg capsule Take 2 capsule by mouth every four to six hours. [PRN diarrhea] aspirin 81 mg tablet,delayed release (DR/EC) Take 1 tablet by mouth once a day. atorvastatin 40 mg tablet Take 1 tablet by mouth every night at bedtime. B12 injection Inject once a month. [Receives at doctor's office.] bumetanide 1 mg tablet Take 1 tablet by mouth once a day. [do not take on days you have HD] clopidogrel 75 mg tablet Take 1 tablet by mouth once a day. [(Plavix)] cyclobenzaprine 10 mg tablet Take 1 tablet by mouth three times a day as needed. [for cramps (Flexiril)] escitalopram oxalate 20 mg tablet Take 1 tablet by mouth every night at bedtime. [(Lexapro)] fluticasone furoate-vilanterol 100-25 mcg/dose blister with device Inhale 1 puff as directed once a day as needed. [(Breo Ellipta)] folic acid 1 mg tablet Take 1 tablet by mouth once a day. gabapentin 100 mg capsule Take 1 capsule by mouth three times a day. hydralazine 25 mg tablet Take 1/2 tablet by mouth twice a day. insulin aspart (niacinamide) 100 unit/mL (3 mL) insulin pen Inject 5 unit subcutaneously three times a day. [per sliding scale] isosorbide mononitrate 30 mg tablet extended release 24 hr Take 1 tablet by mouth once a day. nitroglycerin 0.4 mg tablet, sublingual Take 1 tablet under tongue as needed. [Take 1 tablet SL q 5 mins x3 as needed until chest pain relieved if unrelieved X3 tabs seek emergency care] Sevelamer Carbonate Tablet 800 mg tablet Take 1 Tablet By Mouth Three times a day With Meals. Current [employer] Allergies Allergen: acetaminophen Reaction: Nausea/Vomiting DIALYSIS PRESCRIPTION Treatment Data Treatment Date: 03/02/2025 started at: 1:14 PM Dialysate / Machine Temp (prescribed): 37.0*C Dialysate / Machine Temp (actual): 37.0*C BFR (prescribed): 350 BFR (actual): 350 DFR (prescribed): Manual 800 DFR (actual): 800 Prescribed Time: 03:30 EDW (kg): 63.0 Dialyzer: 160NRe Optiflux Dialysate: 2.0 K, 2.5 Ca, 1.0 Mg, 100 Dextrose (G2251) Sodium: 138 Bicarb: 36 Pre Dialysis Vitals Pre BP Sit: 121/72 Pre Wt (kg): 62.8 EDW Deviation (kg): -0.2 Temp: 98.7*F Current Dialysis Vitals BP Sit: 132/79 AP/MANAGER CORPORATE COMMUNICATIONS: 175/190 Pulse: 74 TREATMENT MEDICATIONS ORDERS Iron Sucrose (Venofer) 50 mg IVP 1X Week During Dialysis 09/29/2024 - 09/28/2025 Mircera 50 mcg IVP Every 4 weeks During Dialysis 02/09/2025 - 02/08/2026 Vitamin D (Calcitriol) Oral 0.75 mcg ORAL 3X Week 02/04/2025 - 02/03/2026 BP AND FLUID ASSESSMENT Acceptable blood pressure. COMMENTS: Ordered UF profile 3 on dialysis to support fluid removal. 138/72 Post BP Sit 165/87 - 02/27/2025 147/84 - 02/20/2025 116/94 - 02/18/2025 Post Wt (kg) 60.4 - 02/27/2025 63.7 - 02/20/2025 63.5 - 02/18/2025 EDW (kg) 63.0 - 02/27/2025 62.5 - 02/20/2025 62.5 - 02/18/2025 Deviation (kg) -2.6 - 02/27/2025 1.2 - 02/20/2025 1.0 - 02/18/2025 ADEQUACY ASSESSMENT spKt/V (Daugirdas II) 1.79 (01/28/25) 1.71 (12/24/24) 1.80 (11/26/24) eKdrt/V 1.56 (01/28/25) 1.49 (12/24/24) 1.54 (11/26/24) % Urea Reduction 78 (01/28/25) 76 (12/24/24) 79 (11/26/24) BUN 59 (01/28/25) 67 (12/24/24) 42 (11/26/24) BUN Post Dialysis 13 (01/28/25) 16 (12/24/24) 9 (11/26/24) Creatinine 6.56 (01/28/25) 6.92 (12/24/24) 5.84 (11/26/24) Bicarbonate (CO2) 24 (01/28/25) 22 (12/24/24) 26 (11/26/24) Sodium 137 (01/28/25) 134 (12/24/24) 136 (11/26/24) COMMENTS: No current clearance labs to review Missed Treatments 4 - Last 30 days 4 - Last 60 days Most recently missed on 02/25/2025 ACCESS ASSESSMENT Vascular access examined. COMMENTS: Stable, no concerns AVGraft Synthetic - Standard (PTFE) Left Upper Arm Active (In Use) - 10/12/2024 Placed - 08/10/2024 Access Flow 943 (01/19/25) 1140 (12/01/24) 1177 (11/17/24) ANEMIA ASSESSMENT Hemoglobin 9.1 (02/18/25) 8.8 (02/11/25) 8.9 (02/04/25) Iron Saturation (TSat) 51 (01/28/25) 45 (12/24/24) 39 (11/26/24) Ferritin 784 (11/26/24) 797 (11/19/24) 692 (08/27/24) Iron 109 (01/28/25) 111 (12/24/24) 92 (11/26/24) TIBC 212 (01/28/25) 248 (12/24/24) 234 (11/26/24) Reticulocyte Hemoglobin 31.8 (02/04/25) 34.0 (12/17/24) 30.9 (11/05/24) MCV 100 (01/28/25) 100 (12/24/24) 98 (11/26/24) Folate 6.0 (08/27/24) Vitamin B-12 572 (08/27/24) Platelets 135 (01/28/25) 136 (12/24/24) 145 (11/26/24) COMMENTS: No current labs to review BMM ASSESSMENT Calcium 8.5 01/28/25 7.9 12/24/24 8.4 11/26/24 Corrected Calcium 8.9 01/28/25 8.2 12/24/24 9.0 11/26/24 Phosphorus 7.6 01/28/25 8.3 12/24/24 5.9 11/26/24 Calcium Phosphorus Product 65 01/28/25 66 12/24/24 50 11/26/24 PTH 797 01/28/25 702 11/26/24 425 08/27/24 Vitamin D, 25-OH, Total 6.7 08/27/24 Magnesium 2.0 11/26/24 2.0 08/27/24 2.0 05/29/24 Alkaline Phosphatase 131 11/26/24 120 08/27/24 128 05/29/24 Aluminum ?5 08/27/24 COMMENTS: No current labs to review NUTRITION ASSESSMENT Albumin 3.5 01/28/25 3.6 12/24/24 3.2 11/26/24 Potassium 5.3 01/28/25 5.3 12/31/24 6.7 12/24/24 eNPCR 1.05 01/28/25 1.15 12/24/24 0.79 11/26/24 Hemoglobin A1C 6.2 11/26/24 7.0 08/27/24 6.6 05/29/24 COMMENTS: No current labs to review PHYSICAL EXAM Exam not performed. COMMENTS: BP in goal on therapy today. Monitor for BP control ADDITIONAL LABS WBC 6.85 (01/28/25) 7.96 (12/24/24) 4.76 (11/26/24) Hepatitis B Surface Ab 10 (08/27/24) ADDITIONAL COMMENT COMMENTS: Rechecking potassium on 01/01 Signed by: YANN LOZANO NP on 03/02/2025 at 03:21:26 PM Transcribed by: YANN LOZANO NP on 03/02/2025 at 03:21:26 PM documented in this encounter Plan of Treatment Not on file documented as of this encounter Visit Diagnoses Diagnosis End stage renal disease Dependence on renal dialysis documented in this encounter Care Teams Spray Drier Operator Relationship Specialty Start Date End Date Alexis Garcia MD [address] [place] [address] PCP - General Family Medicine 04/16/22 documented as of this encounter
--- OUTSIDE RECORDS SUMMARY | 2025-03-03 21:38 | XMS_ITS | Encounter Summary ---
Author Organization [facility] Address [address] [place] [address] Care Team Providers Care Toaster Element Repairer Name Role Phone Shravan Jones DO Primary Care Provider [phone] Encounter Details Date Type Department Care Team (Late st Contact Info) Description 12/12/2016 Nurse Only [facility] 4D Surgery Heart Lung [address] [place] [address] Stephenie Smith RN [address] [place] [address] Social History Tobacco Use Types Packs/Day Years Used Date Smoking Tobacco: Every Day Cigarettes Comments:pt lethargic Comments Unknown Sex and Gender Information Value Date Recorded Sex Assigned at Not on file Legal Sex Female 4:38 AM SPRINKLER DRIVER Gender Identity Not on file Sexual Orientation Not on file documented as of this encounter Plan of Treatment Not on file documented as of this encounter Visit Diagnoses Not on filedocumented in this encounter Care Teams Toaster Element Repairer Relationship Specialty Start Date End Date Shravan Jones DO [address] [phone] PCP - General Family Practice 12/04/16 documented as of this encounter
--- OUTSIDE RECORDS SUMMARY | 2025-03-03 21:38 | XMS_ITS | Encounter Summary ---
Author Organization [employer] Address [address] [place] [address] Care Team Providers Care Top Icer Name Role Phone Shravan Jones DO Primary Care Provider [phone] Encounter Details Date Type Department Care Team [...] and Family Not on file 09/22/2023 Attends [employer] Not on file 09/21 Active Member [...] on file Legal Sex Female 3:34 PM AIR CARGO GROUND OPERATIONS SUPERVISOR Gender Identity Not on file Sexual Orientation Not on file documented as of this encounter Plan of Treatment Upcoming Encounters Date Type Department Care Team (Late st Contact Info) Description 05/19/2025 9:30 AM AIR CARGO GROUND OPERATIONS SUPERVISOR Office Visit [facility] [place] [address] [place] [address] Abel Menon DO [address] [facility] [address] [place] [address] documented as of this encounter Visit Diagnoses Not on filedocumented in this encounter Care Teams Top Icer Relationship Specialty Start Date End Date Shravan Jones DO [address] [address] PCP - General Family Practice 12/04/16 documented as of this encounter
--- OUTSIDE RECORDS SUMMARY | 2025-03-03 21:38 | XMS_ITS | Encounter Summary ---
Author Organization [facility] Address [address] [place] [address] Care Team Providers Care Steel Die Printer Name Role Phone Shravan Jones DO Primary Care Provider [phone] Encounter Details Date Type Department Care Team (Latest Contact Info) Description 05/14/2003 Outpatient [facility] Oral and Maxillo Surgery[address] [place] [address] Jimmy Tineo, CLIVES NO ADDRESS ON FILE UNSPEC DENTAL CARIES (Primary Dx); TOOTH POSITION ANOMALY Social History Tobacco Use Types Packs/Day Years Used Date Smoking Tobacco: Never Assessed Comments Unknown Sex and Gender Information Value Date Recorded Sex Assigned at Not on file Legal Sex Female 4:38 AM EDGER HAND Gender Identity Not on file Sexual Orientation Not on file documented as of this encounter Plan of Treatment Not on file documented as of this encounter Visit Diagnoses Diagnosis Unspecified dental caries- Primary 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
--- OUTSIDE RECORDS SUMMARY | 2025-03-03 21:39 | XMS_ITS | Encounter Summary ---
Author Organization [facility] Address [address] [place] [address] Care Team Providers Care Business Administrator Name Role Phone Shravan Jones DO Primary Care Provider [phone] Encounter Details Date Type Department Care Team (Late st Contact Info) Description 01/07/2017 Lab Requisition [facility] Laboratory Services [address] [place] [address] David Ortega MD [address] [place] [address] Social History Tobacco Use Types Packs/Day Years Used Date Smoking Tobacco: Every Day Cigarettes Comments:pt lethargic Comments Unknown Sex and Gender Information Value Date Recorded Sex Assigned at Not on file 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
--- OUTSIDE RECORDS SUMMARY | 2025-03-03 21:39 | XMS_ITS | Encounter Summary ---
Author Organization [facility] Address [address] [place] [address] Care Team Providers Care Mechanic Marine Engine Name Role Phone Shravan Jones DO Primary Care Provider Encounter Details Date Type Department Care Team (Late st Contact Info) Description 12/31/2016 Lab Requisition [facility] Laboratory Services [address] [place] [address] David Ortega MD [address] [place] [address] Social History Tobacco Use Types Packs/Day Years Used Date Smoking Tobacco: Every Day Cigarettes Comments:pt lethargic Comments Unknown Sex and Gender Information Value Date Recorded Sex Assigned at Not on file 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 This will have limited patient impact. us David Ortega MD CHEMISTRY ORDERABLES Final Res ult [facility] CLIA# [id number] [address] [place] [address] * (ABNORMAL) COMPREHENSIVE METABOLIC PANEL (12/31/2016 2:26 AM CDT) SODIUM 138 136 - 145 mmol/L 12/31/2016 5:52 AM CDT [facility] POTASSIUM 4.7 3.5 - 5.1 mmol/L 12/31/2016 5:52 AM [facility] CHLORIDE 102 98 - 107 mmol/L 12/31/2016 5:52 AM T [facility] CO2 27 21 - 32 mmol/L 12/31/2016 5:52 AM T [facility] CALCIUM 9.1 8.4 - 10.1 mg/dL 12/31/2016 5:52 AM T [facility] BUN 17 7 - 17 mg/dL 12/31/2016 5:52 AM T [facility] CREATININE 0.87 0.55 - 1.02 mg/dL 12/31/2016 5:52 AM T [facility] GLUCOSE 214(H) 74 - 106 mg/dL 12/31/2016 5:52 AM T [facility] TOTAL PROTEIN 8.2 6.4 - 8.2 g/dL 12/31/2016 5:52 AM T [facility] ALBUMIN 1.9(L) 3.4 - 5.0 g/dL 12/31/2016 5:52 AM CDT [facility] BILIRUBIN TOTAL 0.2 0.2 - 1.0 mg/dL 12/31/2016 5:52 AM CDT [facility] ALKALINE PHOSPHATASE 95 25 - 100 U/L 12/31/2016 5:52 AM CDT [facility] AST 9(L) 15 - 37 U/L 12/31/2016 5:52 AM CDT [facility] ALT 14 13 - 61 U/L 12/31/2016 5:52 AM CDT [facility] GFR >60 >=60 mL/min/1.7 3 sq meter 12/31/2016 5:52 AM T [facility] Comment: eGFR has not been validated for [...] 3 sq meter 12/31/2016 5:52 AM CDT [facility] ANION GAP 9 4 - 30 mmol/L 12/31/2016 5:52 AM T [facility] Blood 12/31/2016 2:26 AM CDT 12/31/2016 5:17 AM CDT us David Ortega MD CHEMISTRY ORDERABLES Final Res ult [facility] CLIA# [id number] [address] [place] [address] * (ABNORMAL) CBC WITH DIFFERENTIAL (12/31/2016 2:26 AM CDT) WBC 13.7(H) 4.5 - 11.0 K/uL 12/31/2016 6:32 AM [facility] RBC 3.66(L) 4.20 - 5.40 M/uL 12/31/2016 6:32 AM [facility] HEMOGLOBIN 9.3(L) 12.0 - 16.0 g/dL 12/31/2016 6:32 AM [facility] Nu-B-2B [facility] HEMATOCRIT 29.6(L) 36.0 - 46.0 % 12/31/2016 6:32 AM [facility] Nu-B-2B [facility] MCV 80.9(L) 84.0 - 103.0 fL 12/31/2016 6:32 AM [facility] Nu-B-2B [facility] MCH 25.4(L) 27.0 - 34.0 pg 12/31/2016 6:32 AM [facility] MCHC 31.4 30.0 - 35.0 g/dL 12/31/2016 6:32 AM [facility] Nu-B-2B [facility] RDW 17.4(H) 11.0 - 14.5 % 12/31/2016 6:32 AM [facility] Nu-B-2B [facility] RDW-STDEV 52.1 37.0 - 54.0 fL 12/31/2016 6:32 AM [facility] Nu-B-2B [facility] PLATELETS 767(H) 140 - 440 K/uL 12/31/2016 6:32 AM [facility] Nu-B-2B [facility] MPV 9.0 8.9 - 12.8 fL 12/31/2016 6:32 AM [facility] Nu-B-2B [facility] NEUTROPHILS 68 42 - 75 % 12/31/2016 6:32 AM [facility] Nu-B-2B [facility] LYMPHOCYTES 17(L) 24 - 44 % 12/31/2016 6:32 AM [facility] Nu-B-2B [facility] MONOCYTES 8 2 - 10 % 12/31/2016 6:32 AM [facility] Nu-B-2B [facility] EOSINOPHILS 6 0 - 7 % 12/31/2016 6:32 AM [facility] Nu-B-2B [facility] BASOPHILS 0 0 - 1 % 12/31/2016 6:32 AM [facility] Nu-B-2B [facility] IMMATURE GRANULOCYTES 1 0 - 2 % 12/31/2016 6:32 AM CDT [facility] NEUTROPHIL ABSOLUTE 9.26(H) 2.00 - 8.00 K/uL 12/31/2016 6:32 AM CDT [facility] LYMPHOCYTE ABSOLUTE 2.28 1.20 - 4.00 K/uL 12/31/2016 6:32 AM CDT [facility] MONOCYTE ABSOLUTE 1.07(H) 0.10 - 0.60 K/uL 12/31/2016 6:32 AM CDT [facility] EOSINOPHIL ABSOLUTE 0.82(H) 0.00 - 0.70 K/uL 12/31/2016 6:32 AM CDT [facility] BASOPHILS ABSOLUTE 0.06 0.00 - 0.20 K/uL 12/31/2016 6:32 AM CDT [facility] IMMATURE GRANULOCYTES ABSOLUTE 0.17(H) 0.00 - 0.10 K/uL 12/31/2016 6:32 AM CDT [facility] Blood 12/31/2016 2:26 AM CDT 12/31/2016 5:17 AM CDT Narrative [facility] - 12/31/2016 6:32 AM CDT Smear reviewed us David Ortega MD HEMATOLOGY ORDERABLES Final Re sult [facility] CLIA# [id number] [address] [place] [address] documented in this encounter Visit Diagnoses Not on filedocumented in this encounter Care Teams Mechanic Marine Engine Relationship Specialty Start Date End Date Shravan Jones DO [address] [address] PCP - General Family Practice 12/04/16 documented as of this encounter
--- OUTSIDE RECORDS SUMMARY | 2025-03-03 21:39 | XMS_ITS | Encounter Summary ---
Author Organization [facility] Address [address] [place] [address] Care Team Providers Care Manufacturing Operator Name Role Phone Shravan Jones DO Primary Care Provider Encounter Details Date Type Department Care Team (Late st Contact Info) Description 01/02/2017 Lab Requisition [facility] Laboratory Services [address] [place] [address] Izabela Diamond MD NO ADDRESS ON FILE Social History Tobacco Use Types Packs/Day Years Used Date Smoking Tobacco: Every Day Cigarettes Comments:pt lethargic Comments Unknown Sex and Gender Information Value Date Recorded Sex Assigned at Not on file 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 Gender Identity Not on file Sexual [...] - 145 mmol/L 01/02/2017 6:07 AM CDT [facility] [employer] [facility] POTASSIUM 4.3 3.5 - 5.1 mmol/L 01/02/2017 6:07 AM CDT [facility] CHLORIDE 101 98 - 107 mmol/L 01/02/2017 6:07 AM T [facility] CO2 27 21 - 32 mmol/L 01/02/2017 6:07 AM T [facility] CALCIUM 9.7 8.4 - 10.1 mg/dL 01/02/2017 6:07 AM T [facility] BUN 16 7 - 17 mg/dL 01/02/2017 6:07 AM [facility] CREATININE 0.87 0.55 - 1.02 mg/dL 01/02/2017 6:07 AM T [facility] GLUCOSE 122(H) 74 - 106 mg/dL 01/02/2017 6:07 AM [facility] GFR >60 >=60 mL/min/1.7 3 sq meter 01/02/2017 6:07 AM T [facility] Comment: eGFR has not been validated [...] 3 sq meter 01/02/2017 6:07 AM CDT [facility] ANION GAP 10 4 - 30 mmol/L 01/02/2017 6:07 AM T [facility] Blood 01/02/2017 3:00 AM CDT 01/02/2017 5:35 AM CDT us Izabela Diamond MD CHEMISTRY ORDERABLES Final Res ult [facility] CLIA# [id number] [address] [place] [address] * (ABNORMAL) CBC WITH DIFFERENTIAL (01/02/2017 3:00 AM CDT) [facility] WBC 10.4 4.5 - 11.0 K/uL 01/02/2017 5:44 AM [facility] RBC 4.30 4.20 - 5.40 M/uL 01/02/2017 5:44 AM [facility] HEMOGLOBIN 10.4(L) 12.0 - 16.0 g/dL 01/02/2017 5:44 AM [facility] HEMATOCRIT 34.5(L) 36.0 - 46.0 % 01/02/2017 5:44 AM [facility] MCV 80.2(L) 84.0 - 103.0 fL 01/02/2017 5:44 AM [facility] MCH 24.2(L) 27.0 - 34.0 pg 01/02/2017 5:44 AM [facility] MCHC 30.1 30.0 - 35.0 g/dL 01/02/2017 5:44 AM [facility] RDW 17.4(H) 11.0 - 14.5 % 01/02/2017 5:44 AM [facility] RDW-STDEV 51.1 37.0 - 54.0 fL 01/02/2017 5:44 AM [facility] PLATELETS 764(H) 140 - 440 K/uL 01/02/2017 5:44 AM [facility] MPV 9.2 8.9 - 12.8 fL 01/02/2017 5:44 AM [facility] NEUTROPHILS 56 42 - 75 % 01/02/2017 5:44 AM [facility] LYMPHOCYTES 27 24 - 44 % 01/02/2017 5:44 AM [facility] MONOCYTES 8 2 - 10 % 01/02/2017 5:44 AM [facility] EOSINOPHILS 7 0 - 7 % 01/02/2017 5:44 AM [facility] BASOPHILS 1 0 - 1 % 01/02/2017 5:44 AM [facility] IMMATURE GRANULOCYTES 1 0 - 2 % 01/02/2017 5:44 AM CDT [facility] NEUTROPHIL ABSOLUTE 5.79 2.00 - 8.00 K/uL 01/02/2017 5:44 AM CDT [facility] LYMPHOCYTE ABSOLUTE 2.78 1.20 - 4.00 K/uL 01/02/2017 5:44 AM CDT [facility] MONOCYTE ABSOLUTE 0.85(H) 0.10 - 0.60 K/uL 01/02/2017 5:44 AM CDT [facility] EOSINOPHIL ABSOLUTE 0.76(H) 0.00 - 0.70 K/uL 01/02/2017 5:44 AM CDT [facility] BASOPHILS ABSOLUTE 0.10 0.00 - 0.20 K/uL 01/02/2017 5:44 AM CDT [facility] IMMATURE GRANULOCYTES ABSOLUTE 0.09 0.00 - 0.10 K/uL 01/02/2017 5:44 AM CDT [facility] Blood 01/02/2017 3:00 AM CDT 01/02/2017 5:35 AM CDT us Izabela Diamond MD HEMATOLOGY ORDERABLES Final Re sult [facility] CLIA# [id number] [facility] [place] [address] documented in this encounter Visit Diagnoses Not on filedocumented in this encounter Care Teams Manufacturing Operator Relationship Specialty Start Date End Date Shravan Jones DO [address] [phone] PCP - General Family Practice 12/04/16 documented as of this encounter
--- OUTSIDE RECORDS SUMMARY | 2025-03-03 21:39 | XMS_ITS | Encounter Summary ---
Author Organization [facility] Address [address] [place] [address] Care Team Providers Care Pad Machine Feeder Name Role Phone Shravan Jones DO Primary Care Provider [phone] Reason for Visit * Reason Onset Date Comments Appointment Notification 11/05/2023 Encounter Details Date Type Department Care Team (Late st Contact Info) Description 11/05/2023 Telephone [facility] [address] [place] [address] Janell Beauchamp MD [address] [place] [address] Appointment Notification Social History Tobacco Use Types Packs/Day Years Used Date Smoking Tobacco: Every Day Comments:Quit smoking: pt le thargic Social Connections Answer Date Recorded In a typical week, how many times do you talk on the telephone with family, friends, or neighbors? Never 09/22/19 24 Frequency of Social Gatherings with Friends and Family Not on file 09/22/2023 Attends Muslim Services Not on file 09/21 Active Member [...] on file Legal Sex Female 3:34 PM HEALTH NURSE Gender Identity Not on file Sexual Orientation Not on file documented as of this encounter Miscellaneous Notes * Telephone Encounter - Patrica Barney - 11/05/2023 12:07 PM CDT Janell (Provider) MESSAGE Pt needs to cancel appt on 11/07 and would like to resched. For 11/25 as she has other appts in town that day. Please call pt to reschedule. [facility] Physical Therapy Professor: Patrica Barney documented in this encounter Plan of Treatment Upcoming Encounters Date Type Department Care Team (Late st Contact Info) Description 05/19/2025 9:30 AM HEALTH NURSE [facility] [address] [address] Abel Menon DO [address] [phone] documented as of this encounter Visit Diagnoses Not on filedocumented in this encounter Additional Health Concerns Infection Onset Date Last Indicated Resolved Time R/O C. diff 07/06/2024 07/06/2024 07/06/2024 8:35 AM HEALTH NURSE documented as of this encounter Care Teams Pad Machine Feeder Relationship Specialty Start Date End Date Shravan Jones DO [address] [place] [phone] PCP - General Family Practice 12/04/16 documented as of this encounter
--- OUTSIDE RECORDS SUMMARY | 2025-03-03 21:39 | XMS_ITS | Encounter Summary ---
Author Organization [facility] Address [address] [place] [address] Care Team Providers Care Semiconductor Wafers Etcher Stripper Name Role Phone Shravan Jones DO Primary Care Provider Encounter Details Date Type Department Care Team (Late st Contact Info) Description 12/28/2016 Lab Requisition [facility] Laboratory Services [address] [place] [place] [address] David Ortega MD [address] [place] [address] Social History Tobacco Use Types Packs/Day Years Used Date Smoking Tobacco: Every Day Cigarettes Comments:pt lethargic Comments Unknown Sex and Gender Information Value Date Recorded Sex Assigned at Not on file 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 Blood Collection / Unknown 12/28/2016 2:39 AM CDT 12/28/2016 5:01 AM CDT David Ortega MD CHEMISTRY ORDERABLES Final Res ult Performing Organization Address [facility] Co de Phone Number [facility] CLIA# [id number] [address] [place] [phone] * MAGNESIUM LEVEL (12/28/2016 2:39 AM CDT) [facility] MAGNESIUM 1.6 1.6 - 2.6 mg/dL 12/28/2016 5:[address] [facility] Blood Collection / Unknown 12/28/2016 2:39 AM CDT 12/28/2016 5:[address] [facility] - 12/28/2016 5:42 AM CDT Due to [facility] [facility] [employer] update, MG+ reference range has changed from 1.8 - 2.4 mg/dL to the new reference range of 1.6 - 2.6 mg/dL. This will have limited patient impact. David Ortega MD CHEMISTRY ORDERABLES Final Res ult Performing Organization Address [facility] Co de Phone Number [facility] CLIA# [id number] [address] [place] [address] * PROTIME-INR (12/28/2016 2:39 AM CDT) [facility] PROTIME 15.0 12.3 - 15.5 Seconds 12/28/2016 5:[address] [facility] INR 1.1 0.8 - 1.2 12/28/2016 5:[address] [facility] Blood Collection / Unknown 12/28/2016 2:39 AM CDT 12/28/2016 5:[address] [place] [facility] - 12/28/2016 5:16 AM CDT Expected Values for INR: DVT/PE Goal INR 2.5; range 2.0 - 3.0 Valve Replacement Tissue Goal INR 2.5; range 2.0 - 3.0 Valve Replacement Mechanical Goal INR 3.0; range 2.5 - 3.5 POST-IN Goal INR 2.5; range 2.0 - 3.0 or Goal INR 3.0; range 2.5 - 3.5 Atrial Fibrillation Goal INR 2.5; range 2.0 - 3.0 Ischemic Stroke Goal INR 2.5; range 2.0 - 3.0 For additional information see Guidelines for Anticoagulation available from the pharmacy Wendy Vargas Pharm D. David Ortega MD HEMATOLOGY ORDERABLES Final Re sult [facility] CLIA# [id number] [address] [place] [address] * (ABNORMAL) PTT (12/28/2016 2:39 AM CDT) PTT 39.1(H) 24.8 - 38.8 seconds 12/28/2016 5:[address] [facility] Blood Collection / Unknown 12/28/2016 2:39 AM CDT 12/28/2016 5:[address] [place] [facility] - 12/28/2016 5:16 AM CDT Therapeutic Range: Hi-level PE/DVT heparin protocol 80.1 - 95.0 sec Lo-level PE/DVT heparin protocol 70.1 - 85.0 sec Cardiac Heparin Protocol 70.1 - 100.0 sec David Ortega MD HEMATOLOGY ORDERABLES Final Re sult [facility] CLIA# [id number] [facility] [place] [address] * (ABNORMAL) CBC WITH DIFFERENTIAL (12/28/2016 2:39 AM CDT) Pathologist [facility] WBC 11.0 4.5 - 11.0 K/uL 12/28/2016 5:[address] [facility] RBC 3.80(L) 4.20 - 5.40 M/uL 12/28/2016 5:[address] [facility] HEMOGLOBIN 9.3(L) 12.0 - 16.0 g/dL 12/28/2016 5:[facility]EM[facility] 30.6(L) 36.0 - 46.0 % 12/28/2016 5:[address] [facility] MCV 80.5(L) 84.0 - 103.0 fL 12/28/2016 5:[address] [facility] MCH 24.5(L) 27.0 - 34.0 pg 12/28/2016 5:[address] [facility] MCHC 30.4 30.0 - 35.0 g/dL 12/28/2016 5:[address] [facility] RDW 17.3(H) 11.0 - 14.5 % 12/28/2016 5:[address] [facility] RDW-STDEV 51.8 37.0 - 54.0 fL 12/28/2016 5:[address] [facility] PLATELETS 757(H) 140 - 440 K/uL 12/28/2016 5:[address] [facility] MPV 8.9 8.9 - 12.8 fL 12/28/2016 5:[address] [facility] NEUTROPHILS 65 42 - 75 % 12/28/2016 5:[address] [facility] LYMPHOCYTES 19(L) 24 - 44 % 12/28/2016 5:[address] [facility] MONOCYTES 10 2 - 10 % 12/28/2016 5:[address] [facility] EOSINOPHILS 5 0 - 7 % 12/28/2016 5:[address] [facility] BASOPHILS 1 0 - 1 % 12/28/2016 5:[address] [facility] IMMATURE GRANULOCYTES 1 0 - 2 % 12/28/2016 5:[address] [facility] NEUTROPHIL ABSOLUTE 7.19 2.00 - 8.00 K/uL 12/28/2016 5:[address] [facility] LYMPHOCYTE ABSOLUTE 2.04 1.20 - 4.00 K/uL 12/28/2016 5:[address] [facility] MONOCYTE ABSOLUTE 1.06(H) 0.10 - 0.60 K/uL 12/28/2016 5:[address] [facility] EOSINOPHIL ABSOLUTE 0.60 0.00 - 0.70 K/uL 12/28/2016 5:[address] [facility] BASOPHILS ABSOLUTE 0.07 0.00 - 0.20 K/uL 12/28/2016 5:[address] [facility] IMMATURE GRANULOCYTES ABSOLUTE 0.07 0.00 - 0.10 K/uL 12/28/2016 5:[address] [facility] Blood Collection / Unknown 12/28/2016 2:39 AM CDT 12/28/2016 5:01 AM CDT us David Ortega MD HEMATOLOGY ORDERABLES Final Re sult [facility] CLIA# [id number] [address] [place] [address] * (ABNORMAL) COMPREHENSIVE METABOLIC PANEL (12/28/2016 2:39 AM CDT) SODIUM 143 136 - 145 mmol/L 12/28/2016 5:[address] [facility] POTASSIUM 3.3(L) 3.5 - 5.1 mmol/L 12/28/2016 5:47 AM [facility] CHLORIDE 103 98 - 107 mmol/L 12/28/2016 5:47 AM [facility] CO2 29 21 - 32 mmol/L 12/28/2016 5:47 AM [facility] CALCIUM 8.9 8.4 - 10.1 mg/dL 12/28/2016 5:47 AM [facility] BUN 13 7 - 17 mg/dL 12/28/2016 5:47 AM [facility] CREATININE 0.70 0.55 - 1.02 mg/dL 12/28/2016 5:47 AM [facility] GLUCOSE 46(LL) 74 - 106 mg/dL 12/28/2016 5:47 AM [facility] TOTAL PROTEIN 8.2 6.4 - 8.2 g/dL 12/28/2016 5:47 AM [facility] ALBUMIN 1.8(L) 3.4 - 5.0 g/dL 12/28/2016 5:47 AM [facility] BILIRUBIN TOTAL 0.2 0.2 - 1.0 mg/dL 12/28/2016 5:47 AM [facility] ALKALINE PHOSPHATASE 93 25 - 100 U/L 12/28/2016 5:47 AM [facility] AST 18 15 - 37 U/L 12/28/2016 5:47 AM [facility] ALT 18 13 - 61 U/L 12/28/2016 5:47 AM [facility] GFR >60 >=60 mL/min/1.7 3 sq meter 12/28/2016 5:47 AM [facility] Comment: eGFR has not [...] 3 sq meter 12/28/2016 5:47 AM CDT [facility] ANION GAP 11 4 - 30 mmol/L 12/28/2016 5:47 AM CDT [facility] Blood Collection / Unknown 12/28/2016 2:39 AM CDT 12/28/2016 5:01 AM CDT us David Ortega MD CHEMISTRY ORDERABLES Final Res ult [facility] CLIA# [id number] [address] [place] [address] documented in this encounter Visit Diagnoses Not on filedocumented in this encounter Care Teams Semiconductor Wafers Etcher Stripper Relationship Specialty Start Date End Date Shravan Jones DO [address] [address] PCP - General Family Practice 12/04/16 documented as of this encounter
--- OUTSIDE RECORDS SUMMARY | 2025-03-03 21:39 | XMS_ITS | Encounter Summary ---
Author Organization [facility] Address [address] [place] [address] Care Team Providers Care Supervisor Polishing Name Role Phone Shravan Jones DO Primary Care Provider [phone] Encounter Details Date Type Department Care Team (Late st Contact Info) Description 01/07/2017 Lab Requisition [facility] Laboratory Services [address] [place] [address] Izabela Diamond MD NO ADDRESS ON FILE Social History Tobacco Use Types Packs/Day Years Used Date Smoking Tobacco: Every Day Cigarettes Comments:pt lethargic Comments Unknown Sex and Gender Information Value Date Recorded Sex Assigned at Not on file 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 Gender Identity Not on file [...] - 40 mg/dL 01/07/2017 5:27 AM CDT [facility] Blood 01/07/2017 2:23 AM CDT 01/07/2017 5:01 AM CDT Izabela Diamond MD CHEMISTRY ORDERABLES Final Res ult Performing Organization Address City/[facility]/ZIP Co de Phone Number [facility] CLIA# [id number] [address] [place] [address] * (ABNORMAL) C-REACTIVE PROTEIN (01/07/2017 2:23 AM CDT) CRP 16.6(H) 0.0 - 2.9 mg/L 01/07/2017 5:27 AM CDT [facility] Blood 01/07/2017 2:23 AM CDT 01/07/2017 5:01 AM CDT Izabela Diamond MD CHEMISTRY ORDERABLES Final Res ult Performing Organization Address [facility] Co de Phone Number [facility] CLIA# [id number] [address] [place] [address] * (ABNORMAL) BASIC METABOLIC PANEL (01/07/2017 2:23 AM CDT) SODIUM 139 136 - 145 mmol/L 01/07/2017 5:27 AM CDT [facility] [email or web address] [facility] POTASSIUM 4.1 3.5 - 5.1 mmol/L 01/07/2017 5:27 AM CDT [facility] [email or web address] [facility] CHLORIDE 104 98 - 107 mmol/L 01/07/2017 5:27 AM CDT [facility] [email or web address] [facility] CO2 26 21 - 32 mmol/L 01/07/2017 5:27 AM CDT [facility] [email or web address] [facility] CALCIUM 9.1 8.4 - 10.1 mg/dL 01/07/2017 5:27 AM CDT [facility] [email or web address] [facility] BUN 14 7 - 17 mg/dL 01/07/2017 5:27 AM CDT [facility] CREATININE 0.82 0.55 - 1.02 mg/dL 01/07/2017 5:27 AM T [facility] GLUCOSE 274(H) 74 - 106 mg/dL 01/07/2017 5:27 AM T [facility] GFR >60 >=60 mL/min/1.7 3 sq meter 01/07/2017 5:27 AM T [facility] Comment: eGFR has not been validated [...] 3 sq meter 01/07/2017 5:27 AM T [facility] ANION GAP 9 4 - 30 mmol/L 01/07/2017 5:27 AM [facility] Blood 01/07/2017 2:23 AM CDT 01/07/2017 5:01 AM CDT us Izabela Diamond MD CHEMISTRY ORDERABLES Final Res ult [facility] CLIA# [id number] [address] [place] [address] * (ABNORMAL) CBC WITH DIFFERENTIAL (01/07/2017 2:23 AM CDT) WBC 9.3 4.5 - 11.0 K/uL 01/07/2017 5:27 AM CDT [facility] RBC 4.19(L) 4.20 - 5.40 M/uL 01/07/2017 5:27 AM CDT [facility] HEMOGLOBIN 10.3(L) 12.0 - 16.0 g/dL 01/07/2017 5:27 AM [facility] HEMATOCRIT 33.2(L) 36.0 - 46.0 % 01/07/2017 5:27 AM [facility] MCV 79.2(L) 84.0 - 103.0 fL 01/07/2017 5:27 AM [facility] MCH 24.6(L) 27.0 - 34.0 pg 01/07/2017 5:27 AM [facility] MCHC 31.0 30.0 - 35.0 g/dL 01/07/2017 5:27 AM [facility] RDW 17.2(H) 11.0 - 14.5 % 01/07/2017 5:27 AM [facility] RDW-STDEV 49.4 37.0 - 54.0 fL 01/07/2017 5:27 AM [facility] PLATELETS 545(H) 140 - 440 K/uL 01/07/2017 5:27 AM [facility] MPV 10.2 8.9 - 12.8 fL 01/07/2017 5:27 AM [facility] NEUTROPHILS 53 42 - 75 % 01/07/2017 5:27 AM [facility] LYMPHOCYTES 26 24 - 44 % 01/07/2017 5:27 AM [facility] MONOCYTES 9 2 - 10 % 01/07/2017 5:27 AM [facility] EOSINOPHILS 11(H) 0 - 7 % 01/07/2017 5:27 AM [facility] BASOPHILS 1 0 - 1 % 01/07/2017 5:27 AM [facility] IMMATURE GRANULOCYTES 0 0 - 2 % 01/07/2017 5:27 AM [facility] NEUTROPHIL ABSOLUTE 4.88 2.00 - 8.00 K/uL 01/07/2017 5:27 AM [facility] LYMPHOCYTE ABSOLUTE 2.45 1.20 - 4.00 K/uL 01/07/2017 5:27 AM [facility] MONOCYTE ABSOLUTE 0.79(H) 0.10 - 0.60 K/uL 01/07/2017 5:27 AM CDT [facility] EOSINOPHIL ABSOLUTE 1.01(H) 0.00 - 0.70 K/uL 01/07/2017 5:27 AM CDT [facility] BASOPHILS ABSOLUTE 0.11 0.00 - 0.20 K/uL 01/07/2017 5:27 AM CDT [facility] IMMATURE GRANULOCYTES ABSOLUTE 0.04 0.00 - 0.10 K/uL 01/07/2017 5:27 AM CDT [facility] Blood 01/07/2017 2:23 AM CDT 01/07/2017 5:01 AM CDT us Izabela Diamond MD HEMATOLOGY ORDERABLES Final Re sult [facility] CLIA# [id number] [address] [place] [phone] documented in this encounter Visit Diagnoses Not on filedocumented in this encounter Care Teams Supervisor Polishing Relationship Specialty Start Date End Date Shravan Jones DO [address] [address] PCP - General Family Practice 12/04/16 documented as of this encounter
[2025-03-03 21:57] LABS: Hematocrit 24.8 % (36-47); Hemoglobin 8.00 g/dL (11.27-16.99); Mean Corpuscular HGB Conc 32.3 g/dL (30-55); Mean Corpuscular Hemoglobin 32.3 pg (27-33); Mean Corpuscular Volume 100.0 fl (85-98); Nucleated Red Blood Cells % 0 %; Platelet Count 181 10^3/cmm (157-399); Red Blood Count 2.48 10^6/uL (3.85-5.65); White Blood Count 6.12 10^3/uL (3.29-11.43)
[2025-03-03 22:30] LABS: Alanine Aminotransferase 15 U/L (0-33); Albumin Level 3.7 g/dL (3.5-5.2); Alkaline Phosphatase 152 U/L (35-105); Anion Gap 19.4 (5-19); Aspartate Amino Transferase 11 U/L (0-32); Blood Urea Nitrogen 31 mg/dL (6-20); Calcium 8.5 mg/dL (8.5-10.5); Carbon Dioxide 25 mmol/L (22-29); Chloride 102 mmol/L (98-107); Creatinine Clr Calc Pharmacy 10.7909; Globulin 3.5 g/dL (1.3-4.6); Glucose 154 mg/dL (65-115); Osmolality Calculated 304 mOsm/kg (285-295); Potassium 4.4 mmol/L (3.5-5.1); Sodium 142 mmol/L (136-145); Total Protein 7.2 g/dL (6.6-8.7)
[2025-03-03 22:32] VITALS: BP 144/71; PULSE 73; RESP 13; O2SAT 95
--- NOTE | 2025-03-03 22:32 | ECG_ITS ---
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 Measurements Intervals [place] Rate: 74 P: 56 OR: 175 QRS: 0 QRSD: 102 T: 26 QT: 418 QTc: 464 Interpretive Statements SINUS RHYTHM NONSPECIFIC ST & T-WAVE ABNORMALITY Compared to ECG 03/03/2025 21:23:34 Left ventricular hypertrophy no longer present Myocardial infarct finding no longer present T-wave abnormality still present Electronically Signed On 03-03-2025 22:54:30 CDT by Vance Valdez M.D. [email or web address]
--- NOTE | 2025-03-03 22:33 | ED_ITS ---
HPI - Chest Pain 2 General: Chief Complaint: Chest Pain Stated Complaint: renal failure Time Seen by Provider: 03/03/25 21:15 Source: patient and EMS Mode of arrival: EMS Limitations: no limitations History of Present Illness: 31-year-old female is very well-known to the ER has a history end-stage renal disease on chronic chest pain. Patient states she did receive dialysis yesterday she has been having chest pain along with headache and kidney pain she states this evening. States pain sharp in nature rates it a 7 out of 10 denies any worse improved factors. Associated symptoms: Reports dyspnea; Deny abdominal pain, fever(s), nausea or vomiting Related Data Home Medications ?Medication ?Instructions ?Recorded ?Confirmed clonidine HCl 0.1 mg tablet See Rx Instructions .Route 11/27/23 02/22/25 .COMPLEX PRN Blood Pressure gabapentin 100 mg capsule 300 mg PO TID 12/27/2302/22 clopidogrel 75 mg tablet 75 mg PO DAILY 04/28/2407/18 escitalopram oxalate 20 mg tablet 20 mg PO DAILY anxie ty 02/14/25 02/22/25 folic acid 1 mg tablet 1 mg PO DAILY 02/14/2502/22 hydralazine 25 mg tablet 12.5 mg PO BID 02/14/2507/18 tizanidine 4 mg tablet 4 mg PO Q6H PRN Muscle Spasm 02/14/25 02/22/25 lisinopril 40 mg tablet 40 mg PO DAILY 02/22/2507/18 nitroglycerin 0.4 mg sublingual See Rx Instructions .R oute .COMPLEX 02/22/25 02/22/25 tablet Previous Rx's ?Medication ?Instructions ?Recorded blood-glucose sensor (Dexcom G6 #3 ea 06/12/22 Sensor device) blood-glucose transmitter (Dexcom #1 ea 06/12/22 G6 Transmitter device) blood-glucose,vocational services specialist,cont #1 ea 06/12/22 (Dexcom G6 Order Fulfillment Specialist) sevelamer carbonate 800 mg tablet 800 mg PO TID #90 ta bs 09/16/23 aspirin 81 mg tablet,delayed 81 mg PO QAM 30 days #30 tabs 03/28/24 release atorvastatin 40 mg tablet 40 mg PO BEDTIME 30 days #30 tabs 03/28/24 AFO brace #1 ea 04/20/24 diabetic shoes with 3 inserts #1 ea 04/20/24 amlodipine 5 mg tablet 5 mg PO DAILY #30 tabs 09/30 bumetanide 1 mg tablet See Rx Instructions .Route 0 09/30/24 .COMPLEX #60 tabs insulin aspart U-100 100 unit/mL See Rx Instructions . Route 12/28/24 (3 mL) subcutaneous pen (Novolog .COMPLEX #15 mL FlexPen U-100 Insulin aspart) isosorbide mononitrate 30 mg 30 mg PO DAILY #30 tabs 0 02/26/25 tablet,extended release 24 hr Allergies Allergy/AdvReac Type Severity Reaction Status Date / Time acetaminophen AdvReac Mild ADR-Gastrointestinal Verified 03/03/25 21:28 Upset Review of Systems 2 Const: Denies: fever(s), chills, body aches or change in appetite ENMT: Denies: throat pain or dental pain Card: Reports: chest pain Resp: Reports: dyspnea GI: Denies: abdominal pain, nausea, vomiting or diarrhea Musc: Denies: neck pain or back pain Skin/Breast: Denies: rash Neuro: Reports: headache(s) PFSH ED 2 PFSH: Medical History Chest pain Diabetes mellitus HTN (hypertension) HTN (hypertension), benign Hyperkalemia Headache Accelerated hypertension Uncontrolled type 1 diabetes mellitus ESRD (end stage renal disease) Dialysis complication Hypoglycemia Hemodialysis catheter dysfunction Colitis End stage renal disease on dialysis COPD (chronic obstructive pulmonary disease) Transaminitis Intractable nausea and vomiting Hyperlipidemia CHF (congestive heart failure), NYHA class III Pulmonary hypertension CAD (coronary artery disease) Neurogenic bladder COVID-19 Tobacco dependence Drug abuse Anemia Community acquired pneumonia Esophagitis Long-term insulin use History of pancreatitis Celiac disease Recurrent UTI Non-alcoholic fatty liver disease Arnold-Chiari malformation Diabetic gastroparesis -continue Reglan Diabetic neuropathy associated with type 1 diabetes mellitus Headache, common migraine, intractable, with status migrainosus Pleural effusion 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 History of lung surgery -s/p LLL lobectomy secondary to cavitary pneumonia (2017) History of endoscopy History of cholecystectomy Family History Grandfather Diabetes Mother CAD (coronary artery disease) Diabetes Heart disease Hypertension Brother Acute lymphoblastic leukemia (ALL) in child Grandmother Thyroid disease Denies family history of Colon cancer Ovarian cancer Prostate cancer Hyperlipidemia Breast cancer Uterine cancer Stroke Social History Smoking and tobacco/nicotine status: former use of tobacco/nicotine Quit status (tobacco/nicotine): has quit using Former quit date comment: She previously smoked <1/2 PPD, quit July 2023. Second hand smoke exposure: Yes Alcohol intake: never Substance/Drug Use: current Household members: children Housing: House Marital status: Single Current occupational status: unemployed Physical Exam 2 Const: COMMON NORMALS: no acute distress, patient oriented x3 and healthy appearing HENMT: COMMON NORMALS: normocephalic and atraumatic HEAD & SCALP: n ormocephalic and atraumatic Eye: COMMON NORMALS: conjunctivae normal CONJUNCTIVA: Yes conjunctivae normal Neck/C-Spine: COMMON NORMALS: full ROM and supple Chest: COMMONS NORMALS: normal inspection of the chest and normal palpation of entire chest wall Resp: COMMON NORMALS: normal respiratory effort, No retractions, No use of accessory muscles and clear to auscultation bilaterally AUSCULTATION: clear to auscultation bilaterally Cardio: COMMON NORMALS: regular rate, regular rhythm and No murmurs present (Cardio) RATE: regular rate RHYTHM: regular rhythm Extremity: COMMON NORMALS: normal to inspection and full ROM Neuro: COMMON NORMALS: patient oriented x3, moves all extremities and no focal motor deficits Psych: COMMON NORMALS: mental status grossly normal, Normal thought process present and cooperative THOUGHT PROCESS: Normal thought process present Skin: COMMON NORMALS: no rashes or lesions noted and no wounds GENERAL SKIN EXAM: no rashes or lesions noted Course 2 Vital Signs: Vital signs: Vital Signs Temperature 99.4 F 03/03/25 21:25 Pulse Rate 77 03/04/25 00:00 Respiratory Rate 18 03/04/25 00:00 Blood Pressure 159/87 03/04/25 00:00 Pulse Oximetry 100 03/04/25 00:00 Oxygen Delivery Me thod Nasal Cannula 03/03/25 23:30 Oxygen Flow Rate 3 03/03/25 21:25 MDM - Chest Pain Medical Decision Making Patient presents for chest pain is atypical in nature she has been well- appearing here 2-hour troponin has a negative delta she stable for discharge follow-up PCP return if worsening. Medical Records I reviewed the patient's medical records. Lab Data I reviewed the patient's lab results. 03/03/25 21:49 03/03/25 21:49 Radiology Impressions Chest X-Ray 03/03/25 21:14 IMPRESSION: No acute findings. Laboratory Results WBC 6.12 10^3/uL (3.29-11.43) 03/03/25 21: RBC 2.48 10^6/uL (3.85-5.65) L 03/03/25 21:49 Hgb 8.00 g/dL (11.27-16.99) L 03/03/25 21:49 Hct 24.8 % (36-47) L 03/03/25 21:49 MCV 100.0 fl (85-98) H 03/03/25 21:49 MCH 32.3 pg (27-33) 03/03/25 21:49 MCHC 32.3 g/dL (30-55) 03/03/25 21:49 RDW 13.6 % (12.1-15.1) 03/03/25 21:49 Plt Count 181 10^3/cmm (157-399) 03/03/25 21:49 MPV 10.1 fL (7.4-10.4) 03/03/25 21:49 Neut % (Auto) 56.1 % 03/03/25 21:49 Lymph % (Auto) 26.1 % 03/03/25 21:49 [place] % (Auto) 10.8 % 03/03/25:49 Eos % (Auto) 6.0 % 03/03/25 21:49 Baso % (Auto) 0.8 % 03/03/25 21:49 Neut # (Auto) 3.43 10^3/uL (1.8-7.7) 03/03/25 21:49 Lymph # (Auto) 1.6 10^3/uL (0.8-4.8) 03/03/25 21:49 [place] # (Auto) 0.7 10^3/uL (0.2-0.9) 03/03/25 21:49 Eos # (Auto) 0.4 10^3/uL (0.0-0.8) 03/03/25 21:49 Baso # (Auto) 0.1 10^3/uL (0.0-0.1) 03/03/25 21:49 Nucleated RBC % (auto) 0 % 03/03/25 21:49 Nucleated RBCs # 0.0 /100WBC 03/03/25 21:49 Sodium 142 mmol/L (136-145) 03/03/25 21:49 Potassium 4.4 mmol/L (3.5-5.1) 03/03/25 21:49 Chloride 102 mmol/L (98-107) 03/03/25 21:49 Carbon Dioxide 25 mmol/L (22-29) 03/03/25 21:49 Anion Gap 19.4 (5-19) H 03/03/25 21:49 BUN 31 mg/dL (6-20) H 03/03/25 21:49 Creatinine 5.8 mg/dL (0.5-0.9) H* 03/03/25 21:49 GFR Calculation 8.2 mL/min (90-130) L 03/03/25 21:49 Glucose 154 mg/dL (65-115) H 03/03/25 21:49 Calculated Osmolality 304 mOsm/kg (285-295) H 03/03/25 21:49 Calcium 8.5 mg/dL (8.5-10.5) 03/03/25 21:49 Total Bilirubin 0.2 mg/dL (0.15-1.2) 03/03/25 21:49 AST 11 U/L (0-32) 03/03/25 21:49 ALT 15 U/L (0-33) 03/03/25 21:49 Alkaline Phosphatase 152 U/L (35-105) H 03/03/25 21:49 Troponin T Baseline 189 ng/L (0-10) H* 03/03/25 21:49 Troponin T 120 Minute 180.4 ng/L (0-10) H 03/03/25 23:37 Delta Troponin T -8.6 ABS# (0-10) L 03/03/25 23:37 NT-Pro-B Natriuret Pep 85432 pg/mL (0-125) H 03/03/25 21:49 Total Protein 7.2 g/dL (6.6-8.7) 03/03/25 21:49 Albumin 3.7 g/dL (3.5-5.2) 03/03/25 21:49 Globulin 3.5 g/dL (1.3-4.6) 03/03/25 21:49 All radiology interpretation(s) finalized by discharge Discharge Plan Discharge Patient Disposition: Home Clinical Impression: Atypical chest pain Condition: Stable Prescriptions: No Action (DME) AFO brace See Rx Instructions .Route .MEDSUPPLY Qty: 1 0RF Rx Instructions: As directed to the shoe guys [place] diabetic shoes with 3 inserts See Rx Instructions .Route .MEDSUPPLY Qty: 1 0RF Rx Instructions: As directed to the shoe guys ([facility] Dexcom G6 Order Fulfillment Specialist Misc See Rx Instructions .Route Qty: 1 0RF Rx Instructions: As directed ([facility] Dexcom G6 Sensor Device See Rx Instructions .Route Qty: 3 0RF Rx Instructions: As directed ([facility] Dexcom G6 Transmitter Device See Rx Instructions .Route Qty: 1 0RF Rx Instructions: As directed atorvastatin 40 mg tablet 40 mg PO BEDTIME 30 Days Qty: 30 0RF aspirin 81 mg tablet,delayed release (DR/EC) 81 mg PO QAM 30 Days Qty: 30 0RF amlodipine 5 mg Tablet 5 mg PO DAILY Qty: 30 0RF bumetanide 1 mg tablet See Rx Instructions .ROUTE .COMPLEX Qty: 60 0RF Rx Instructions: TAKE 1 TABLET BY MOUTH twice DAILY ON NON-DIALYSIS DAYS sevelamer carbonate 800 mg Tablet 800 mg PO TID Qty: 90 0RF clonidine HCl 0.1 mg tablet See Rx Instructions .ROUTE .COMPLEX PRN (Reason: Blood Pressure) Rx Instructions: TAKE 1 TABLET IF SYSTOLIC BLOOD PRESSURE IS GREATER THAN 160, REPEAT ONCE IF SYSTOLIC BLOOD PRESSURE IS STILL OVER 160 AFTER 1 HOUR. gabapentin 100 mg Capsule 300 mg PO TID clopidogrel 75 mg tablet 75 mg PO DAILY insulin aspart U-100 [Novolog FlexPen U-100 Insulin] 100 unit/mL (3 mL) insulin pen See Rx Instructions .ROUTE .COMPLEX Qty: 15 0RF Rx Instructions: Inject 3 times daily, subcut, after meals, based on low-dose sliding scale. tizanidine 4 mg tablet 4 mg PO Q6H PRN (Reason: Muscle Spasm) hydralazine 25 mg tablet 12.5 mg PO BID folic acid 1 mg tablet 1 mg PO DAILY escitalopram oxalate 20 mg tablet 20 mg PO DAILY nitroglycerin 0.4 mg tablet, sublingual See Rx Instructions .ROUTE .COMPLEX Rx Instructions: DISSOLVE ONE TABLET UNDER THE TONGUE EVERY 5 MINUTES NEEDED FOR CHEST PAIN. DO NOT EXCEED A TOTAL OF 3 DOSES IN 15 MINUTES. lisinopril 40 mg tablet 40 mg PO DAILY isosorbide mononitrate 30 mg tablet extended release 24 hr 30 mg PO DAILY Qty: 30 0RF Discharge Orders: Discharge ED (Routine); Ordered 03/04/25 Ordered By: Ronny Ayala Referrals: Elizabeth Dougherty FNP [Primary Care Provider, Unknown] - 4-7 days Discharge Diet: Advance as tolerated Discharge Activity: Resume usual activity Patient Instructions: Chest Pain (ED) Print Language: Brazilian Coding Level of Care Code ED Apprentice Stylist for Reji Chandler
[2025-03-03 22:51] LABS: NT Pro B Type Natriuretic Pept 33894 pg/mL (0-125)
[2025-03-03 23:00] VITALS: BP 176/92; PULSE 79; RESP 18; O2SAT 99
[2025-03-03 23:01] LABS: Troponin(5th) Baseline 189 ng/L (0-10)
[2025-03-03 23:30] VITALS: BP 153/107; PULSE 77; RESP 18; O2SAT 99
[2025-03-04] VITALS: BP 159/87; PULSE 77; RESP 18; O2SAT 100
[2025-03-04 00:03] LABS: Troponin 5 2HR Delta -8.6 ABS# (0-10)
[2025-03-04 00:04] LABS: Troponin 5 2HR 180.4 ng/L (0-10)
[2025-03-04] MEDS: morphine 4 mg/mL SDV 1 mL IVP (00:08)
[2025-03-04 01:03] VITALS: BP 176/86; PULSE 77; O2SAT 100
== END 2025-03-04 01:04 | disposition home or self-care (01) ==
PROVIDERS: Emergency Provider Emergency Medicine; PCP Nurse Practitioner Family
DX: R07.89 Other chest pain (principal); Z79.82 Long term (current) use of aspirin; Z79.4 Long term (current) use of insulin; Z87.891 Personal history of nicotine dependence; E10.22 Type 1 diabetes mellitus with diabetic chronic kidney disease; I13.2 Hypertensive heart and chronic kidney disease with heart failure and with stage 5 chronic kidney disease, or end stage renal disease; I50.9 Heart failure, unspecified; N18.6 End stage renal disease
CPT/HCPCS: 36415; 71045; 80053; 83880; 84484; 85025; 93005; 96374; 99285; J2270

== ENCOUNTER 2025-03-04 14:12 | Emergency (ER) | payer MEDICARE, MEDICAID, SELFPAY ==
[2025-03-04] VITALS (8 sets, daily range): BP systolic 101–150; BP diastolic 53–92; PULSE 69–72; RESP 14–18; TEMP 36.7; O2SAT 98–100; BMI 26.5
--- NOTE | 2025-03-04 14:21 | ECG_ITS ---
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
--- NOTE | 2025-03-04 14:21 | XRR_ITS ---
PROCEDURE INFORMATION: Exam: XR Chest Exam date and time: 03/04/2025 2:46 PM Age: 39 years old Clinical indication: Pain; Angina pectoris; Additional info: Chest pain TECHNIQUE: Imaging protocol: Radiologic exam of the chest. Views: 1 view. COMPARISON: CR (CHEST, ) 03/03/2025 9:31 PM FINDINGS: Lungs: No focal consolidation. Pleural spaces: No evidence of pneumothorax. No evidence of pleural effusion. Heart/Mediastinum: Cardiomediastinal silhouette is within normal limits. There appear to be coronary stents in place. Bones/joints: No evidence of acute osseous abnormality. XR/XR chest 1V portable [id number] IMPRESSION: 1. No acute cardiopulmonary abnormality.
--- NOTE | 2025-03-04 14:21 | W.ED.CHESTPA ---
HPI - Chest Pain General: Chief Complaint: Chest Pain Stated Complaint: chest pain History of Present Illness: 39-year-old female with a history of end-stage renal disease on dialysis, diabetes, hypertension, CHF, coronary artery disease status post 8 stents, pulmonary hypertension, gastroparesis who presents to the emergency room with chest pain. She complains of central chest pain. Substernal. This started while she was in dialysis. She still had 2 hours of dialysis left. She received nitroglycerin and aspirin with no improvement in pain. Related Data Home Medications ?Medication ?Instructions ?Recorded ?Confirmed clonidine HCl 0.1 mg tablet See Rx Instructions .Route 11/27/23 03/04/25 .COMPLEX PRN Blood Pressure gabapentin 100 mg capsule 100 mg PO TID 12/27/23 03/04/25 clopidogrel 75 mg tablet 75 mg PO DAILY 04/28/24 03/04/25 escitalopram oxalate 20 mg tablet 20 mg PO DAILY anxiety 02/14/25 03/04/25 folic acid 1 mg tablet 1 mg PO DAILY 02/14/25 03/04/25 hydralazine 25 mg tablet 12.5 mg PO BID 02/14/25 03/04/25 tizanidine 4 mg tablet 4 mg PO Q6H PRN Muscle Spasm 02/14/25 03/04/25 lisinopril 40 mg tablet 40 mg PO DAILY 02/22/25 03/04/25 nitroglycerin 0.4 mg sublingual See Rx Instructions .Route .COMPLEX 02/22/25 03/04/25 tablet carvedilol 3.125 mg tablet 3.125 mg PO BID 03/04/25 03/04/25 losartan 50 mg tablet 100 mg PO DAILY 03/04/25 03/04/25 nifedipine 90 mg tablet,extended 90 mg PO BEDTIME 03/04/25 03/04/25 release Previous Rx's ?Medication ?Instructions ?Recorded blood-glucose sensor (Dexcom G6 #3 ea 06/12/22 Sensor device) blood-glucose transmitter (Dexcom #1 ea 06/12/22 G6 Transmitter device) blood-glucose,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 engineering intern,cont #1 ea 06/12/22 (Dexcom G6 Rn Progressive Care) sevelamer carbonate 800 mg tablet 800 mg PO TID #90 tabs 09/16/23 aspirin 81 mg tablet,delayed 81 mg PO QAM 30 days #30 tabs 03/28/24 release atorvastatin 40 mg tablet 40 mg PO BEDTIME 30 days #30 tabs 03/28/24 AFO brace #1 ea 04/20/24 diabetic shoes with 3 inserts #1 ea 04/20/24 amlodipine 5 mg tablet 5 mg PO DAILY #30 tabs 09/30/24 bumetanide 1 mg tablet See Rx Instructions .Route 09/30/24 .COMPLEX #60 tabs insulin aspart U-100 100 unit/mL See Rx Instructions .Route 12/28/24 (3 mL) subcutaneous pen (Novolog .COMPLEX #15 mL FlexPen U-100 Insulin aspart) isosorbide mononitrate 30 mg 30 mg PO DAILY #30 tabs 02/26/25 tablet,extended release 24 hr oxycodone 5 mg tablet 5 mg PO Q8H PRN pain #20 tabs 03/04/25 Allergies Allergy/AdvReac Type Severity Reaction Status Date / Time acetaminophen AdvReac Mild ADR-Gastrointestinal Verified 03/03/25 21:28 Upset Review of Systems Narrative: Constitutional symptoms: Negative except as documented in HPI. Skin symptoms: Negative except as documented in HPI. Eye symptoms: Negative except as documented in HPI. ENMT symptoms: Negative except as documented in HPI. Respiratory symptoms: Negative except as documented in HPI. Cardiovascular symptoms: Negative except as documented in HPI. Gastrointestinal symptoms: Negative except as documented in HPI. Genitourinary symptoms: Negative except as documented in HPI. Musculoskeletal symptoms: Negative except as documented in HPI. Neurologic symptoms: Negative except as documented in HPI. Psychiatric symptoms: Negative except as documented in HPI. Endocrine symptoms: Negative except as documented in HPI. PFSH ED PFSH: Medical History (Updated 03/04/25 @ 18:05 by Dawna Briceno MD) Chest pain Diabetes mellitus HTN (hypertension) HTN (hypertension), benign Hyperkalemia Headache Accelerated hypertension Uncontrolled type 1 diabetes mellitus ESRD (end stage renal disease) Dialysis complication Hypoglycemia Hemodialysis catheter dysfunction Colitis End stage renal disease on dialysis COPD (chronic obstructive pulmonary disease) Transaminitis Intractable nausea and vomiting Hyperlipidemia CHF (congestive heart failure), NYHA class III Pulmonary hypertension CAD (coronary artery disease) Neurogenic bladder COVID-19 Tobacco dependence Drug abuse Anemia Community acquired pneumonia Esophagitis Long-term insulin use History of pancreatitis Celiac disease Recurrent UTI Non-alcoholic fatty liver disease Arnold-Chiari malformation Diabetic gastroparesis -continue Reglan Diabetic neuropathy associated with type 1 diabetes mellitus Headache, common migraine, intractable, with status migrainosus Pleural effusion 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 History of lung surgery -s/p LLL lobectomy secondary to cavitary pneumonia (2017) History of endoscopy History of cholecystectomy Family History Grandfather Diabetes Mother CAD (coronary artery disease) Diabetes Heart disease Hypertension Brother Acute lymphoblastic leukemia (ALL) in child Grandmother Thyroid disease Denies family history of Colon cancer Ovarian cancer Prostate cancer Hyperlipidemia Breast cancer Uterine cancer Stroke Social History Smoking and tobacco/nicotine status: former use of tobacco/nicotine Quit status (tobacco/nicotine): has quit using Former quit date comment: She previously smoked <1/2 PPD, quit July 2023. Second hand smoke exposure: Yes Alcohol intake: never Substance/Drug Use: current Household members: children Housing: House Marital status: Single Current occupational status: unemployed Physical Exam Narrative: EXAM NARRATIVE: General: Alert, no acute distress. Skin: Warm, dry. Head: Normocephalic, atraumatic. Neck: Supple, trachea midline. Eye: Extraocular movements are intact. Ears, nose, mouth and throat: mucosa moist. Cardiovascular: Regular, Normal peripheral perfusion. Respiratory: Lungs are clear to auscultation, respirations are non-labored, breath sounds are equal, Symmetrical chest wall expansion. Gastrointestinal: Soft, Nontender, Non distended Musculoskeletal: Normal ROM, no deformity. Neurological: Alert and oriented, No focal neurological deficit observed. Psychiatric: Cooperative, appropriate mood & affect. Course Vital Signs: Vital signs: Vital Signs Temperature 98.1 F 03/04/25 14:12 Pulse Rate 72 03/04/25 18:00 Respiratory Rate 14 03/04/25 18:00 Blood Pressure 134/82 03/04/25 18:00 Pulse Oximetry 99 03/04/25 18:00 Oxygen Delivery Me thod Room Air 03/04/25 18:00 MDM - Chest Pain Medical Decision Making Differential diagnosis for patient with chest pain includes but is not limited to and based on the above HPI, review of systems and physical exam: Pneumonia. unstable angina. angina. Acute coronary syndrome / [place]. Pulmonary embolism. Costochondritis / musculoskeletal. Pleurisy. Pericarditis. Esophageal spasm. Pancreatis. Cholecystitis. Orders placed to evaluate differential diagnosis based on the above differential, HPI and physical exam EKG: Time 1418. Rate 71. Normal sinus rhythm, No ST-T changes, no ectopy, normal PA & QRS intervals, This was reviewed and interpreted by myself the ER physician at 1423 Repeat EKG: Time 1617. Rate 70. Normal sinus rhythm, No ST-T changes, no ectopy, normal PA & QRS intervals, This was reviewed and interpreted by myself the ER physician at 1620. No acute changes from EKG done previously today. Chest x-ray: No acute process. No infiltrate. No pneumothorax. This was reviewed and interpreted by myself the emergency room physician. I also reviewed the radiology report. Lab Review: Laboratory results were reviewed and interpreted by myself the emergency room physician. No leukocytosis. Stable anemia with a hemoglobin of 8.3. BUN and creatinine are 21 and 4.7. Patient is a dialysis patient. Initial troponin was 206 repeat was 194. This is around her baseline secondary to her renal insufficiency I reviewed the patient's medical record. 39-year-old female with a history of end-stage renal disease on dialysis, diabetes, hypertension, CHF, coronary artery disease status post 8 stents, pulmonary hypertension, gastroparesis Reexamination: Patient remained stable. No increased work of breathing. No altered mental status. No focal motor deficits. She has had multiple visits for this over the last month. She was admitted to the hospitalist and nephrology and cardiology consulted about 6 days ago. This seems to be a noncardiac chest pain. I discussed that she needs to follow with cardiology and with her primary provider. I will provide her with some pain medication for now. But discussed chronic pain management would need to be through her primary or a pain management doctor Assessment and plan: Chest pain ? IV morphine 2 mg and p.o. [place] in the emergency room - Discharged home - Discussed plan with patient. Answered any questions. - Evaluation and treatment of this problem were appropriate in the emergency setting. Lab Data 03/04/25 14:57 03/04/25 14:57 Radiology Impressions Chest X-Ray 03/04/25 14:21 IMPRESSION: 1. No acute cardiopulmonary abnormality. Laboratory Results WBC 6.70 10^3/uL (3.29-11.43) 03/04/25 14:57 RBC 2.65 10^6/uL (3.85-5.65) L 03/04/25 14:57 Hgb 8.30 g/dL (11.27-16.99) L 03/04/25 14:57 Hct 25.6 % (36-47) L 03/04/25 14:57 MCV 96.6 fl (85-98) 03/04/25 14:57 MCH 31.3 pg (27-33) 03/04/25 14:57 MCHC 32.4 g/dL (30-55) 03/04/25 14:57 RDW 13.7 % (12.1-15.1) 03/04/25 14:57 Plt Count 182 10^3/cmm (157-399) 03/04/25 14:57 MPV 10.0 fL (7.4-10.4) 03/04/25 14:57 Neut % (Auto) 72.2 % 03/04/25 14:57 Lymph % (Auto) 13.7 % 03/04/25 14:57 [place] % (Auto) 8.4 % 03/04/25 14:57 Eos % (Auto) 4.8 % 03/04/25 14:57 Baso % (Auto) 0.6 % 03/04/25 14:57 Neut # (Auto) 4.84 10^3/uL (1.8-7.7) 03/04/25 14:57 Lymph # (Auto) 0.9 10^3/uL (0.8-4.8) 03/04/25 14:57 [place] # (Auto) 0.6 10^3/uL (0.2-0.9) 03/04/25 14:57 Eos # (Auto) 0.3 10^3/uL (0.0-0.8) 03/04/25 14:57 Baso # (Auto) 0.0 10^3/uL (0.0-0.1) 03/04/25 14:57 Nucleated RBC % (auto) 0 % 03/04/25 14:57 Nucleated RBCs # 0.0 /100WBC 03/04/25 14:57 Sodium 137 mmol/L (136-145) 03/04/25 14:57 Potassium 4.1 mmol/L (3.5-5.1) 03/04/25 14:57 Chloride 98 mmol/L (98-107) 03/04/25 14:57 Carbon Dioxide 28 mmol/L (22-29) 03/04/25 14:57 Anion Gap 15.1 (5-19) 03/04/25 14:57 BUN 21 mg/dL (6-20) H 03/04/25 14:57 Creatinine 4.7 mg/dL (0.5-0.9) H 03/04/25 14:57 GFR Calculation 10.4 mL/min (90-130) L 03/04/25 14:57 Glucose 180 mg/dL (65-115) H 03/04/25 14:57 Calculated Osmolality 292 mOsm/kg (285-295) 03/04/25 14:57 Calcium 8.7 mg/dL (8.5-10.5) 03/04/25 14:57 Total Bilirubin 0.3 mg/dL (0.15-1.2) 03/04/25 14:57 AST 22 U/L (0-32) 03/04/25 14:57 ALT 23 U/L (0-33) 03/04/25 14:57 Alkaline Phosphatase 157 U/L (35-105) H 03/04/25 14:57 Troponin T Baseline 206 ng/L (0-10) H* 03/04/25 14:57 Troponin T 120 Minute 194.0 ng/L (0-10) H 03/04/25 16:39 Delta Troponin T -12.0 ABS# (0-10) L 03/04/25 16:39 Total Protein 7.2 g/dL (6.6-8.7) 03/04/25 14:57 Albumin 3.7 g/dL (3.5-5.2) 03/04/25 14:57 Globulin 3.5 g/dL (1.3-4.6) 03/04/25 14:57 All radiology interpretation(s) finalized by discharge Discharge Plan Discharge Patient Disposition: Home Clinical Impression: Chest pain Condition: Stable Prescriptions: New oxycodone 5 mg tablet 5 mg PO Q8H PRN (Reason: pain) Qty: 20 0RF No Action (DME) AFO brace See Rx Instructions .Route .MEDSUPPLY Qty: 1 0RF Rx Instructions: As directed to the shoe guys ([facility]) diabetic shoes with 3 inserts See Rx Instructions .Route .MEDSUPPLY Qty: 1 0RF Rx Instructions: As directed to the shoe guys ([facility]) Dexcom G6 Rn Progressive Care Misc See Rx Instructions .Route Qty: 1 0RF Rx Instructions: As directed ([facility]) Dexcom G6 Sensor Device See Rx Instructions .Route Qty: 3 0RF Rx Instructions: As directed ([facility]) Dexcom G6 Transmitter Device See Rx Instructions .Route Qty: 1 0RF Rx Instructions: As directed atorvastatin 40 mg tablet 40 mg PO BEDTIME 30 Days Qty: 30 0RF aspirin 81 mg tablet,delayed release (DR/EC) 81 mg PO QAM 30 Days Qty: 30 0RF amlodipine 5 mg Tablet 5 mg PO DAILY Qty: 30 0RF bumetanide 1 mg tablet See Rx Instructions .ROUTE .COMPLEX Qty: 60 0RF Rx Instructions: TAKE 1 TABLET BY MOUTH twice DAILY ON NON-DIALYSIS DAYS sevelamer carbonate 800 mg Tablet 800 mg PO TID Qty: 90 0RF clonidine HCl 0.1 mg tablet See Rx Instructions .ROUTE .COMPLEX PRN (Reason: Blood Pressure) Rx Instructions: TAKE 1 TABLET IF SYSTOLIC BLOOD PRESSURE IS GREATER THAN 160, REPEAT ONCE IF SYSTOLIC BLOOD PRESSURE IS STILL OVER 160 AFTER 1 HOUR. gabapentin 100 mg Capsule 100 mg PO TID clopidogrel 75 mg tablet 75 mg PO DAILY insulin aspart U-100 [Novolog FlexPen U-100 Insulin] 100 unit/mL (3 mL) insulin pen See Rx Instructions .ROUTE .COMPLEX Qty: 15 0RF Rx Instructions: Inject 3 times daily, subcut, after meals, based on low-dose sliding scale. tizanidine 4 mg tablet 4 mg PO Q6H PRN (Reason: Muscle Spasm) hydralazine 25 mg tablet 12.5 mg PO BID folic acid 1 mg tablet 1 mg PO DAILY escitalopram oxalate 20 mg tablet 20 mg PO DAILY nitroglycerin 0.4 mg tablet, sublingual See Rx Instructions .ROUTE .COMPLEX Rx Instructions: DISSOLVE ONE TABLET UNDER THE TONGUE EVERY 5 MINUTES NEEDED FOR CHEST PAIN. DO NOT EXCEED A TOTAL OF 3 DOSES IN 15 MINUTES. lisinopril 40 mg tablet 40 mg PO DAILY isosorbide mononitrate 30 mg tablet extended release 24 hr 30 mg PO DAILY Qty: 30 0RF losartan 50 mg tablet 100 mg PO DAILY nifedipine 90 mg tablet extended release 90 mg PO BEDTIME carvedilol 3.125 mg tablet 3.125 mg PO BID Discharge Orders: Discharge ED (Routine); Ordered 03/04/25 Ordered By: Dawna Briceno Referrals: Elizabeth Dougherty FNP [Primary Care Provider, Unknown] Discharge Diet: Usual diet Discharge Activity: Increase activity as tolerated Patient Instructions: Chest Pain (ED), Opioid Safety, Pain Management, Patient Portal & [place] Instructions Activity Restrictions/Additional Instructions: Thank you for choosing [facility] for your healthcare needs today. You have been screened and evaluated and felt safe for discharge. Health conditions do change or evolve sometimes and as such it is important that you follow up with your Primary Doctor to be re checked, 3-5 days is a general good time frame for follow up. You are always welcome to return to the ED for re assessment if your symptoms are worsening or you have new concerns Print Language: Icelandic Coding Level of Care Code ED Assistant Store Manager Operations for Reji Chandler
--- OUTSIDE RECORDS SUMMARY | 2025-03-04 15:00 | XMS_ITS | Encounter Summary ---
Author Organization [employer] Address 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 [place] [address] Abel Menon DO [address] [facility] [address] [place] [id number] documented as of this encounter Visit Diagnoses Not on filedocumented in this encounter Care Teams Dean Of Students Relationship Specialty Start Date End Date Shravan Jones DO [address] [address] PCP - General Family Practice 12/04/16 documented as of this encounter
--- OUTSIDE RECORDS SUMMARY | 2025-03-04 15:00 | XMS_ITS | Encounter Summary ---
Author Organization [facility] Address [address] [place] [address] Care Team Providers Care Development Architect Name Role Phone Shravan Jones DO Primary Care Provider [phone] Encounter Details Date Type Department Care Team (Late st Contact Info) Description 01/07/2017 Lab Requisition [facility] [address] [place] [address] David Ortega MD [address] [place] [address] Social History Tobacco Use Types Packs/Day Years Used Date Smoking Tobacco: Every Day Cigarettes Comments:pt lethargic Comments Unknown Sex and Gender Information Value Date Recorded Sex Assigned at Not on file 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
--- OUTSIDE RECORDS SUMMARY | 2025-03-04 15:00 | XMS_ITS | Clinical Summary ---
Author Organization [facility] Facility Address [address] [address] Care Team Providers Care Viticulturist Name Role Phone Alexis Garcai MD Primary Care Provider [phone] Encounters Date Type Department Care Team Description 03/02/2025 Orders Only [facility] [place] [facility], [facility] [address] [place] [address] Chey Navas MD 03/02/2025 Treatment [facility] [place] [facility] [place], [facility] [address] [place] [address] Melissa Wiley NP End stage renal disease; Dependence on renal dialysis 02/18/2025 Orders Only [place] [facility], [facility] [address] [place] [address] Chey Navas MD 02/11/2025 Orders Only [place] [facility], [facility] [address] [place] [address] Chey Navas MD 02/09/[address] [place] [address] [place] [facility] [place], [facility] [address] [place] [address] [phone] Chey Navas MD End stage renal disease; Dependence on renal dialysis 02/04/2025 Orders Only [place] [facility], [facility] [address] [place] [address] Chey Navas MD 02/02/[address] [place] [address] [place] [facility] [place], [facility] [address] [place] [address] Karlene Cespedes NP End stage renal disease; Dependence on renal dialysis 01/28/[address] [place] [address], [facility] [address] [place] [address] Melissa Wiley NP End stage renal disease; Dependence on renal dialysis 01/28/2025 Orders Only [facility], [facility] [address] [place] [phone] Chey Navas MD 01/21/2025 Orders Only [facility], [facility] [address] [place] [address] Chey Navas MD 01/14/2025 Orders Only [facility], [facility] [address] [place] [address] Chey Navas MD 01/12/[address] [place] [address], [facility] [address] [place] [phone] Chey Navas MD End stage renal disease; Dependence on renal dialysis 01/07/2025 Orders Only [facility], [facility] [address] [place] [address] Chey Navas MD 01/05/[address] [place] [address], [facility] [address] [place] [address] Karlene Cespedes NP End stage renal disease; Dependence on renal dialysis 12/31/2024 Orders Only [facility], [facility] [address] [place] [address] Chey Navas MD 12/29/2024 TCM in Dialysis Clinic [address] [place] [address], [facility] [address] [place] [phone] Melissa Wiley NP 12/29/[address] [place] [address], [facility] [address] [place] [address] eMlissa Wiley NP End stage renal disease; Dependence on renal dialysis 12/24/[address] [facility], [facility] [address] [place] [phone] Chey Navas MD 12/22/2024 Treatment [facility], [facility] [address] [place] [address] Melissa Wiley NP End stage renal disease; Dependence on renal dialysis 12/17/[address], [facility] [address] [place] [address] Chey Navas MD 12/15/2024 Treatment [facility], [facility] [address] [place] [address] Karlene Cespedes NP End stage renal disease; Dependence on renal dialysis 12/10/2024 Orders Only [facility], [facility] [address] [place] [address] Chey Navas MD 12/10/[address] [place] [address], [facility] [address] [place] [address] Chey Navas MD End stage renal disease; Dependence on renal dialysis 12/07/2024 Refill [facility], [facility] [address] [place] [address] Melissa Wiley NP 12/03/[address], [facility] [address] [place] [address] Chey Navas MD from Last 3 Months Social History Tobacco [...] Exam 09/12/2023 Influenza Vaccine (#1) 2025 Diabetes: Ophthalmology Exam 05/20/2025 05/20/2024 Diabetes: Hemoglobin A1C 06/01/2025 025, 11/26/2024, 08/27/2024, Additional history exists Procedures Procedure Name Priority Date/Time Associated Diagnosis [...] Urea Reduction 80 65 - 80 % [facility] 03/02/2025 03/03/2025 11: 41 AM CDT Narrative Resulting Agency Comment Specimen source: Plasma us Chey Navas MD LAB BLOOD ORDERABLES Final Re sult [facility] See order comments or contact performing lab Unknown, [place] * (ABNORMAL) SPECIAL CHEMISTRY (03/02/2025) Hemoglobin A1C 6.5(H) 4.8 - 5.9 % [facility] 03/02/2025 03/03/2025 11: 04 AM CDT Narrative Resulting Agency Comment Specimen source: Blood us Chey Navas MD LAB BLOOD BANK TEST ORDERABLE S Final Result Performing Organization Address City/[facility]/ZIP Co de Phone Number [facility] See order comments or contact performing lab Unknown, [place] * POST CHEMISTRY (03/02/2025) Only the most recent of3 resultswithin the time period is included. Pathologist [facility] BUN Post Dialysis 11 6 - 19 mg/dL [facility] 03/02/2025 03/03/2025 11: 41 AM CDT Narrative [facility] - 03/03/2025 Unless otherwise specified, test(s) performed at: [facility], [address] [place] [address] LEARNING AND DEVELOPMENT CONSULTANT: Jose Luis France M.D. For any questions, please call customer service at FREQUENCY:MONTHLY Resulting Agency Comment Specimen source: Plasma us Chey Navas MD LAB BLOOD ORDERABLES Final Re sult Performing Organization Address City/[facility]/ZIP Co de Phone Number [facility] See order comments or contact performing lab Unknown, [place] * IMMUNO CHEMISTRY (03/02/2025) [facility] Hepatitis C Antibody Nonreactive Nonreactive [facility] Comment: No HCV antibody detected. The above test result was obtained using Siemens Centaur XP chemiluminescent method. Results obtained with different assay methods or kits cannot be used interchangeably. S/CO Ratio 0.03 0.00 - 0.79 [facility] Comment: s/co ratio Interpretation Supplemental testing <0.80 Nonreactive No further testing required. 0.80-0.99 Equivocal HCV RNA Quantitative Real-Time PCR is recommended. 1.00->11.00 Reactive HCV RNA Quantitative Real-Time PCR is recommended to distinguish active from resolved cases. 03/02/2025 03/03/2025 11: 29 AM CDT Narrative [facility] - 03/03/2025 Unless otherwise specified, test(s) performed at: [facility] [address] LEARNING AND DEVELOPMENT CONSULTANT: Jose Luis France M.D. For any questions, please call customer service at FREQUENCY:MONTHLY Resulting Agency Comment Specimen source: Serum Chey Navas MD LAB BLOOD ORDERABLES Final Re sult Performing Organization Address [facility] de Phone Number [facility] See order comments or contact performing lab Unknown, [place] * TRACE ELEMENTS (03/02/2025) Pathologist [facility] Aluminum 5 0 - 10 mcg/L [facility] Comment: This test was developed and its performance characteristics determined by [facility]. It has not been cleared or approved by the FDA. The laboratory is regulated under CLIA as qualified to perform high complexity testing. This test is used for clinical purposes. It should not be regarded as investigational or for research. 03/02/2025 03/03/2025 10: 54 AM CDT Narrative [facility] - 03/03/2025 Unless otherwise specified, test(s) performed at: [facility] [address] LEARNING AND DEVELOPMENT CONSULTANT: Jose Luis France M.D. For any questions, please call customer service at FREQUENCY:MONTHLY Resulting Agency Comment Specimen source: Serum Chey Navas MD LAB BLOOD ORDERABLES Final [facility] Performing Organization Address [facility] de Phone Number [facility] See order comments or contact performing lab Unknown, [place] * (ABNORMAL) HEMATOLOGY (03/02/2025) Only the most recent of13 resultswithin the time period is included. Pathologist [facility] Neutrophils 65.6 40.0 - 75.0 % Spect[facility] [...] 03/02/2025 03/03/2025 11: 04 AM CDT Narrative [facility] - 03/03/2025 Unless otherwise specified, test(s) performed at: [facility], [address] [place] [address] LEARNING AND DEVELOPMENT CONSULTANT: Jose Luis France M.D. For any questions, please call customer service at FREQUENCY:MONTHLY Resulting Agency Comment Specimen source: Blood us Chey Navas MD LAB BLOOD ORDERABLES Final Re sult Performing Organization Address [facility] de Phone Number [facility] See order comments or contact performing lab Unknown, [place] * (ABNORMAL) Attributor Chemistry (03/02/2025) Only the most recent of6 resultswithin the time period is included. PTH 804(H) 16 - 80 pg/mL [facility] 03/02/2025 03/03/2025 10: 56 AM CDT Narrative [facility] - 03/03/2025 Unless otherwise specified, test(s) performed at: [facility], [address] [place] [address] LEARNING AND DEVELOPMENT CONSULTANT: Jose Luis France M.D. For any questions, please call customer service at FREQUENCY:MONTHLY Resulting Agency Comment Specimen source: Plasma us Chey Navas MD LAB BLOOD ORDERABLES Final Re sult Performing Organization Address City/[facility]/ZIP Co de Phone Number [facility] See order comments or contact performing lab Unknown, [place] * [facility] Results (01/28/2025) Only the most recent of2 resultswithin the time period is included. WSTDKT/V 2.6 [facility] eKdrt/V 1.56 [facility] nPCR_HD 1.12 [facility] spKt/V (Daugirdas II) 1.79 [facility] eKt/V Gotch 1.56 [facility] e Center eNPCR 1.05 [facility] PCR 57.64 [facility] spKt/V Gotch 1.81 [facility] [place] eKt/V ([place]) 1.55 [facility] 01/28/2025 01/28/2025 [facility] Ordering Provider LAB BLOOD ORDERABLES Final Result [facility] Contact Performing lab Unknown, [place] from Last 3 Months Insurance Medicaid [place] ([id number]) Medicare Care Teams Viticulturist Relationship Specialty Start Date End Date Alexis Garcia MD [address] [place] [phone] PCP - General Family Medicine 04/16/22
--- OUTSIDE RECORDS SUMMARY | 2025-03-04 15:00 | XMS_ITS | Encounter Summary ---
Author Organization [facility] Address [address] [place] [address] Care Team Providers Care Airport Guide Name Role Phone Shravan Jones DO Primary Care Provider Encounter Details Date Type Department Care Team (Late st Contact Info) Description 01/02/2017 Lab Requisition [facility] Services [address] [place] [address] Izabela Diamond MD NO ADDRESS ON FILE Social History Tobacco Use Types Packs/Day Years Used Date Smoking Tobacco: Every Day Cigarettes Comments:pt lethargic Comments Unknown Sex and Gender Information Value Date Recorded Sex Assigned at Not on file 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 Gender Identity Not on file Sexual Orientation [...] - 145 mmol/L 01/02/2017 6:07 AM CDT [facility] POTASSIUM 4.3 3.5 - 5.1 mmol/L 01/02/2017 6:07 AM CDT [facility] CHLORIDE 101 98 - 107 mmol/L 01/02/2017 6:07 AM T [facility] CO2 27 21 - 32 mmol/L 01/02/2017 6:07 AM T [facility] CALCIUM 9.7 8.4 - 10.1 mg/dL 01/02/2017 6:07 AM T [facility] BUN 16 7 - 17 mg/dL 01/02/2017 6:07 AM [facility] CREATININE 0.87 0.55 - 1.02 mg/dL 01/02/2017 6:07 AM T [facility] GLUCOSE 122(H) 74 - 106 mg/dL 01/02/2017 6:07 AM [facility] GFR >60 >=60 mL/min/1.7 3 sq meter 01/02/2017 6:07 AM T [facility] Comment: eGFR has not been validated [...] sq meter 01/02/2017 6:07 AM CDT [facility] ANION GAP 10 4 - 30 mmol/L 01/02/2017 6:07 AM T [facility] Blood 01/02/2017 3:00 AM CDT 01/02/2017 5:35 AM CDT us Izabela Diamond MD CHEMISTRY ORDERABLES Final Res ult [facility] CLIA# [id number] [address] [place] [address] * (ABNORMAL) CBC WITH DIFFERENTIAL (01/02/2017 3:00 AM CDT) [facility] WBC 10.4 4.5 - 11.0 K/uL 01/02/2017 5:44 AM [facility] RBC 4.30 4.20 - 5.40 M/uL 01/02/2017 5:44 AM [facility] HEMOGLOBIN 10.4(L) 12.0 - 16.0 g/dL 01/02/2017 5:44 AM [facility] HEMATOCRIT 34.5(L) 36.0 - 46.0 % 01/02/2017 5:44 AM [facility] MCV 80.2(L) 84.0 - 103.0 fL 01/02/2017 5:44 AM [facility] MCH 24.2(L) 27.0 - 34.0 pg 01/02/2017 5:44 AM [facility] MCHC 30.1 30.0 - 35.0 g/dL 01/02/2017 5:44 AM [facility] RDW 17.4(H) 11.0 - 14.5 % 01/02/2017 5:44 AM [facility] RDW-STDEV 51.1 37.0 - 54.0 fL 01/02/2017 5:44 AM [facility] PLATELETS 764(H) 140 - 440 K/uL 01/02/2017 5:44 AM [facility] MPV 9.2 8.9 - 12.8 fL 01/02/2017 5:44 AM [facility] NEUTROPHILS 56 42 - 75 % 01/02/2017 5:44 AM [facility] LYMPHOCYTES 27 24 - 44 % 01/02/2017 5:44 AM [facility] MONOCYTES 8 2 - 10 % 01/02/2017 5:44 AM [facility] EOSINOPHILS 7 0 - 7 % 01/02/2017 5:44 AM [facility] BASOPHILS 1 0 - 1 % 01/02/2017 5:44 AM [facility] IMMATURE GRANULOCYTES 1 0 - 2 % 01/02/2017 5:44 AM CDT [facility] NEUTROPHIL ABSOLUTE 5.79 2.00 - 8.00 K/uL 01/02/2017 5:44 AM CDT [facility] LYMPHOCYTE ABSOLUTE 2.78 1.20 - 4.00 K/uL 01/02/2017 5:44 AM CDT [facility] MONOCYTE ABSOLUTE 0.85(H) 0.10 - 0.60 K/uL 01/02/2017 5:44 AM CDT [facility] EOSINOPHIL ABSOLUTE 0.76(H) 0.00 - 0.70 K/uL 01/02/2017 5:44 AM CDT [facility] BASOPHILS ABSOLUTE 0.10 0.00 - 0.20 K/uL 01/02/2017 5:44 AM CDT [facility] IMMATURE GRANULOCYTES ABSOLUTE 0.09 0.00 - 0.10 K/uL 01/02/2017 5:44 AM CDT [facility] Blood 01/02/2017 3:00 AM CDT 01/02/2017 5:35 AM CDT us Izabela Diamond MD HEMATOLOGY ORDERABLES Final Re sult [facility] CLIA# [id number] [facility] [place] [address] documented in this encounter Visit Diagnoses Not on filedocumented in this encounter Care Teams Airport Guide Relationship Specialty Start Date End Date Shravan Jones DO [address] [address] PCP - General Family Practice 12/04/16 documented as of this encounter
--- OUTSIDE RECORDS SUMMARY | 2025-03-04 15:00 | XMS_ITS | Encounter Summary ---
Author Organization [facility] Address 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 [place] [address] Abel Menon DO [address] [facility] [address] [place] [address] documented as of this encounter Visit Diagnoses Not on filedocumented in this encounter Care Teams Agricultural Pilot Relationship Specialty Start Date End Date Shravan Jones DO [address] [address] PCP - General Family Practice 12/04/16 documented as of this encounter
--- OUTSIDE RECORDS SUMMARY | 2025-03-04 15:00 | XMS_ITS | Encounter Summary ---
Author Organization [facility], [facility] Address [address] [place] [address] Phone Care Team Providers Care Television Anchor Name Role Phone Alexis Garcia MD Primary Care Provider [phone] Encounter Details Date Type Department Care Team (Late st Contact Info) Description 03/02/2025 [facility] [address] [place] [address] Yann Lozano NP [address] [place] [address] End stage renal disease; Dependence [...] CDT Patient: Donita Aguilar : 1985 C: [facility] Note Type: Dialysis Rounds-Comp Service Date: 03/02/2025 This patient was personally seen [id number] for a complete visit as part of routine monthly dialysis care for end stage renal disease. Attending Health Care Facility Administrator: MACHO JOHANSEN Dialysis Location: [facility] Schedule: Shift: 2 OVERVIEW COMMENTS: Seen on HD. PATIENT HISTORY COMMENTS: Admitted from 02/22/2025-02/26/2025: CP. Work up negative for acute findings. Hospital D/C nifedipine, began isosorbide mononitrate 30 mg XR, one daily. Reviewed change with patient. HOME MEDICATIONS Medications reviewed with changes as indicated. Current [facility] Outpatient Medications amlodipine 5 mg tablet Take [...] Three times a day With Meals. Current [facility] Allergies Allergen: acetaminophen Reaction: Nausea/Vomiting DIALYSIS PRESCRIPTION [...] 98.7*F Current Dialysis Vitals BP Sit: 132/79 AP/CENTER MEDICAL SPECIALIST: 175/190 Pulse: 74 TREATMENT MEDICATIONS ORDERS Iron [...] dialysis documented in this encounter Care Teams Television Anchor Relationship Specialty Start Date End Date Alexis Garcia MD [address] [place] [address] PCP - General Family Medicine 04/16/22 documented as of this encounter
--- OUTSIDE RECORDS SUMMARY | 2025-03-04 15:00 | XMS_ITS | Encounter Summary ---
Author Organization [facility] Address [address] [place] [address] Care Team Providers Care Air Quality Instrument Specialist Name Role Phone Shravan Jones DO Primary Care Provider Encounter Details Date Type Department Care Team (Late st Contact Info) Description 01/07/2017 Lab Requisition [facility] [address] [place] [address] David Ortega MD [address] [place] [address] Social History Tobacco Use Types Packs/Day Years Used Date Smoking Tobacco: Every Day Cigarettes Comments:pt lethargic Comments Unknown Sex and Gender Information Value Date Recorded Sex Assigned at Not on file 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 Gender Identity Not on file Sexual Orientation [...] Detected Not Detected 01/07/2017 8:08 PM CDT [facility] Stool STOOL SPECIMEN / Unknown 01/07/2017 1:54 PM CDT 01/07/2017 6:53 PM CDT Narrative [facility] - 01/07/2017 8:08 PM CDT This assay [...] MICROBIOLOGY - GENERAL ORDERAB LES Final Result [facility] CLIA# [id number] [address] [place] [address] documented in this encounter Visit Diagnoses Not on filedocumented in this encounter Care Teams Air Quality Instrument Specialist Relationship Specialty Start Date End Date Shravan Jones DO [address] [address] PCP - General Family Practice 12/04/16 documented as of this encounter
--- OUTSIDE RECORDS SUMMARY | 2025-03-04 15:00 | XMS_ITS | Clinical Summary ---
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 Gender Identity Not on file Sexual Orientation [...] 10/11/1999, 09/06/1999 Medical Devices Implanted Type Area Wildlife Conservation Professor Device Identifier Shelf Expiration Date Model / Serial / Lot Max tracy Flour [id number] - [id number] Implanted:Qty: 2 on 12/17/2016 by Deandre Alan MD at [facility] Biological Left: Lung [employer] 09/19/2019 [id number] / / [id number] Control Implant [employer] Procedures Procedure Name Priority Date/Time Associated Diagnosis Comments HEMOGLOBIN A1C Routine 01/09/2017 2:52 AM CDT from Last 3 Months or Most Recently Relevant to Health Maintenance Results * (ABNORMAL) HEMOGLOBIN A1C (01/09/2017 2:52 AM CDT) HEMOGLOBIN A1C 8.9(H) 4.0 - 6.0 % 01/09/2017 1:31 PM CDT [facility] EST. AVG GLUCOSE, A1C 209 mg/dL 01/09/2017 1:31 PM CDT [facility] Blood 01/09/2017 2:52 AM CDT 01/09/2017 6:53 AM CDT Narrative [facility] - 01/09/2017 1:31 PM CDT Test performed on Digital Luxury[employer] instrumentation using HPLC methodology us Izabela Diamond MD CHEMISTRY ORDERABLES Final Res ult [facility] CLIA# [id number] [address] [place] [address] from Last 3 Months or Most Recently Relevant to Health [place] [address] [employer] MEDICA[employer] Advance Directives For more information, please contact: [phone] * Full Code (Latest Code Status on File) Date Activated Date Inactivated Comments 12/17/2016 1:05 PM 12/27/2016 11:32 PM Care Teams Puller Out Relationship Specialty Start Date End Date Shravan Jones DO [address] [address] PCP - General Family Practice 12/04/16
--- OUTSIDE RECORDS SUMMARY | 2025-03-04 15:00 | XMS_ITS | Encounter Summary ---
Author Organization [facility] Address [address] [place] [address] Care Team Providers Care Movement Therapist Name Role Phone Shravan Jones DO Primary Care Provider [phone] Encounter Details Date Type Department Care Team (Late st Contact Info) Description 12/12/2016 Nurse Only [facility] 4D Surgery Heart Lung [address] [place] [address] Stephenie Smith RN [address] [place] [address] Social History Tobacco Use Types Packs/Day Years Used Date Smoking Tobacco: Every Day Cigarettes Comments:pt lethargic Comments Unknown Sex and Gender Information Value Date Recorded Sex Assigned at Not on file 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
--- OUTSIDE RECORDS SUMMARY | 2025-03-04 15:00 | XMS_ITS | Encounter Summary ---
Author Organization [facility] Address [address] [place] [address] Care Team Providers Care Armhole Raiser Lockstitch Name Role Phone Shravan Jones DO Primary Care Provider Encounter Details Date Type Department Care Team (Late st Contact Info) Description 12/31/2016 Lab Requisition [facility] Laboratory Services [address] [place] [address] David Ortega MD [address] [place] [address] Social History Tobacco Use Types Packs/Day Years Used Date Smoking Tobacco: Every Day Cigarettes Comments:pt lethargic Comments Unknown Sex and Gender Information Value Date Recorded Sex Assigned at Not on file 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 This will have limited patient impact. us David Ortega MD CHEMISTRY ORDERABLES Final Res ult [facility] CLIA# [id number] [address] [place] [address] * (ABNORMAL) COMPREHENSIVE METABOLIC PANEL (12/31/2016 2:26 AM CDT) SODIUM 138 136 - 145 mmol/L 12/31/2016 5:52 AM CDT [facility] POTASSIUM 4.7 3.5 - 5.1 mmol/L 12/31/2016 5:52 AM [facility] CHLORIDE 102 98 - 107 mmol/L 12/31/2016 5:52 AM T [facility] CO2 27 21 - 32 mmol/L 12/31/2016 5:52 AM T [facility] CALCIUM 9.1 8.4 - 10.1 mg/dL 12/31/2016 5:52 AM T [facility] BUN 17 7 - 17 mg/dL 12/31/2016 5:52 AM T [facility] CREATININE 0.87 0.55 - 1.02 mg/dL 12/31/2016 5:52 AM T [facility] GLUCOSE 214(H) 74 - 106 mg/dL 12/31/2016 5:52 AM T [facility] TOTAL PROTEIN 8.2 6.4 - 8.2 g/dL 12/31/2016 5:52 AM T [facility] ALBUMIN 1.9(L) 3.4 - 5.0 g/dL 12/31/2016 5:52 AM CDT [facility] BILIRUBIN TOTAL 0.2 0.2 - 1.0 mg/dL 12/31/2016 5:52 AM CDT [facility] ALKALINE PHOSPHATASE 95 25 - 100 U/L 12/31/2016 5:52 AM CDT [facility] AST 9(L) 15 - 37 U/L 12/31/2016 5:52 AM CDT [facility] ALT 14 13 - 61 U/L 12/31/2016 5:52 AM CDT [facility] GFR >60 >=60 mL/min/1.7 3 sq meter 12/31/2016 5:52 AM T [facility] Comment: eGFR has not been [...] 3 sq meter 12/31/2016 5:52 AM CDT [facility] ANION GAP 9 4 - 30 mmol/L 12/31/2016 5:52 AM T [facility] Blood 12/31/2016 2:26 AM CDT 12/31/2016 5:17 AM CDT us David Ortega MD CHEMISTRY ORDERABLES Final Res ult [facility] CLIA# [id number] [address] [place] [address] * (ABNORMAL) CBC WITH DIFFERENTIAL (12/31/2016 2:26 AM CDT) WBC 13.7(H) 4.5 - 11.0 K/uL 12/31/2016 6:32 AM [facility] RBC 3.66(L) 4.20 - 5.40 M/uL 12/31/2016 6:32 AM [facility] HEMOGLOBIN 9.3(L) 12.0 - 16.0 g/dL 12/31/2016 6:32 AM [facility] [employer] [facility] HEMATOCRIT 29.6(L) 36.0 - 46.0 % 12/31/2016 6:32 AM [facility] [employer] [facility] MCV 80.9(L) 84.0 - 103.0 fL 12/31/2016 6:32 AM [facility] [employer] [facility] MCH 25.4(L) 27.0 - 34.0 pg 12/31/2016 6:32 AM [facility] MCHC 31.4 30.0 - 35.0 g/dL 12/31/2016 6:32 AM [facility] [employer] [facility] RDW 17.4(H) 11.0 - 14.5 % 12/31/2016 6:32 AM [facility] [employer] [facility] RDW-STDEV 52.1 37.0 - 54.0 fL 12/31/2016 6:32 AM [facility] [employer] [facility] PLATELETS 767(H) 140 - 440 K/uL 12/31/2016 6:32 AM [facility] [employer] [facility] MPV 9.0 8.9 - 12.8 fL 12/31/2016 6:32 AM [facility] [employer] [facility] NEUTROPHILS 68 42 - 75 % 12/31/2016 6:32 AM [facility] [employer] [facility] LYMPHOCYTES 17(L) 24 - 44 % 12/31/2016 6:32 AM [facility] [employer] [facility] MONOCYTES 8 2 - 10 % 12/31/2016 6:32 AM [facility] [employer] [facility] EOSINOPHILS 6 0 - 7 % 12/31/2016 6:32 AM [facility] [employer] [facility] BASOPHILS 0 0 - 1 % 12/31/2016 6:32 AM [facility] [employer] [facility] IMMATURE GRANULOCYTES 1 0 - 2 % 12/31/2016 6:32 AM CDT [facility] NEUTROPHIL ABSOLUTE 9.26(H) 2.00 - 8.00 K/uL 12/31/2016 6:32 AM CDT [facility] LYMPHOCYTE ABSOLUTE 2.28 1.20 - 4.00 K/uL 12/31/2016 6:32 AM CDT [facility] MONOCYTE ABSOLUTE 1.07(H) 0.10 - 0.60 K/uL 12/31/2016 6:32 AM CDT [facility] EOSINOPHIL ABSOLUTE 0.82(H) 0.00 - 0.70 K/uL 12/31/2016 6:32 AM CDT [facility] BASOPHILS ABSOLUTE 0.06 0.00 - 0.20 K/uL 12/31/2016 6:32 AM CDT [facility] IMMATURE GRANULOCYTES ABSOLUTE 0.17(H) 0.00 - 0.10 K/uL 12/31/2016 6:32 AM CDT [facility] Blood 12/31/2016 2:26 AM CDT 12/31/2016 5:17 AM CDT Narrative [facility] - 12/31/2016 6:32 AM CDT Smear reviewed us David Ortega MD HEMATOLOGY ORDERABLES Final Re sult [facility] CLIA# [id number] [address] [place] [address] documented in this encounter Visit Diagnoses Not on filedocumented in this encounter Care Teams Armhole Raiser Lockstitch Relationship Specialty Start Date End Date Shravan Jones DO [address] [address] PCP - General Family Practice 12/04/16 documented as of this encounter
--- OUTSIDE RECORDS SUMMARY | 2025-03-04 15:00 | XMS_ITS | Encounter Summary ---
Author Organization [facility] Address [address] [place] [address] Care Team Providers Care Reel Man Name Role Phone Shravan Jones DO Primary Care Provider [phone] Encounter Details Date Type Department Care Team (Late st Contact Info) Description 01/07/2017 Lab Requisition [facility] Laboratory Services [address] [place] [address] Izabela Diamond MD NO ADDRESS ON FILE Social History Tobacco Use Types Packs/Day Years Used Date Smoking Tobacco: Every Day Cigarettes Comments:pt lethargic Comments Unknown Sex and Gender Information Value Date Recorded Sex Assigned at Not on file 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 Sex 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 Gender Identity Not on file Sexual Orientation [...] - 40 mg/dL 01/07/2017 5:27 AM CDT [facility]ORAT[facility] Blood 01/07/2017 2:23 AM CDT 01/07/2017 5:01 AM CDT Izablea Diamond MD CHEMISTRY ORDERABLES Final Res ult Performing Organization Address City/[facility]/ZIP Co de Phone Number [facility] CLIA# [id number] [address] [place] [address] * (ABNORMAL) C-REACTIVE PROTEIN (01/07/2017 2:23 AM CDT) CRP 16.6(H) 0.0 - 2.9 mg/L 01/07/2017 5:27 AM CDT [facility] Blood 01/07/2017 2:23 AM CDT 01/07/2017 5:01 AM CDT Izabela Diamond MD CHEMISTRY ORDERABLES Final Res ult Performing Organization Address [facility] Co de Phone Number [facility] CLIA# [id number] [address] [place] [address] * (ABNORMAL) BASIC METABOLIC PANEL (01/07/2017 2:23 AM CDT) SODIUM 139 136 - 145 mmol/L 01/07/2017 5:27 AM CDT [facility] [employer] [facility] POTASSIUM 4.1 3.5 - 5.1 mmol/L 01/07/2017 5:27 AM CDT [facility] [employer] [facility] CHLORIDE 104 98 - 107 mmol/L 01/07/2017 5:27 AM CDT [facility] [employer] [facility] CO2 26 21 - 32 mmol/L 01/07/2017 5:27 AM CDT [facility] [employer] [facility] CALCIUM 9.1 8.4 - 10.1 mg/dL 01/07/2017 5:27 AM CDT [facility] [employer] [facility] BUN 14 7 - 17 mg/dL 01/07/2017 5:27 AM CDT [facility] CREATININE 0.82 0.55 - 1.02 mg/dL 01/07/2017 5:27 AM T [facility] GLUCOSE 274(H) 74 - 106 mg/dL 01/07/2017 5:27 AM T [facility] GFR >60 >=60 mL/min/1.7 3 sq meter 01/07/2017 5:27 AM T [facility] Comment: eGFR has not been validated for [...] 3 sq meter 01/07/2017 5:27 AM T [facility] ANION GAP 9 4 - 30 mmol/L 01/07/2017 5:27 AM [facility] Blood 01/07/2017 2:23 AM CDT 01/07/2017 5:01 AM CDT us Izabela Diamond MD CHEMISTRY ORDERABLES Final Res ult [facility] CLIA# [id number] [address] [place] [address] * (ABNORMAL) CBC WITH DIFFERENTIAL (01/07/2017 2:23 AM CDT) WBC 9.3 4.5 - 11.0 K/uL 01/07/2017 5:27 AM CDT [facility] RBC 4.19(L) 4.20 - 5.40 M/uL 01/07/2017 5:27 AM CDT [facility] HEMOGLOBIN 10.3(L) 12.0 - 16.0 g/dL 01/07/2017 5:27 AM [facility] HEMATOCRIT 33.2(L) 36.0 - 46.0 % 01/07/2017 5:27 AM [facility] MCV 79.2(L) 84.0 - 103.0 fL 01/07/2017 5:27 AM [facility] MCH 24.6(L) 27.0 - 34.0 pg 01/07/2017 5:27 AM [facility] MCHC 31.0 30.0 - 35.0 g/dL 01/07/2017 5:27 AM [facility] RDW 17.2(H) 11.0 - 14.5 % 01/07/2017 5:27 AM [facility] RDW-STDEV 49.4 37.0 - 54.0 fL 01/07/2017 5:27 AM [facility] PLATELETS 545(H) 140 - 440 K/uL 01/07/2017 5:27 AM [facility] MPV 10.2 8.9 - 12.8 fL 01/07/2017 5:27 AM [facility] NEUTROPHILS 53 42 - 75 % 01/07/2017 5:27 AM [facility] LYMPHOCYTES 26 24 - 44 % 01/07/2017 5:27 AM [facility] MONOCYTES 9 2 - 10 % 01/07/2017 5:27 AM [facility] EOSINOPHILS 11(H) 0 - 7 % 01/07/2017 5:27 AM [facility] BASOPHILS 1 0 - 1 % 01/07/2017 5:27 AM [facility] IMMATURE GRANULOCYTES 0 0 - 2 % 01/07/2017 5:27 AM [facility] NEUTROPHIL ABSOLUTE 4.88 2.00 - 8.00 K/uL 01/07/2017 5:27 AM [facility] LYMPHOCYTE ABSOLUTE 2.45 1.20 - 4.00 K/uL 01/07/2017 5:27 AM [facility] MONOCYTE ABSOLUTE 0.79(H) 0.10 - 0.60 K/uL 01/07/2017 5:27 AM CDT [facility] EOSINOPHIL ABSOLUTE 1.01(H) 0.00 - 0.70 K/uL 01/07/2017 5:27 AM CDT [facility] BASOPHILS ABSOLUTE 0.11 0.00 - 0.20 K/uL 01/07/2017 5:27 AM CDT [facility] IMMATURE GRANULOCYTES ABSOLUTE 0.04 0.00 - 0.10 K/uL 01/07/2017 5:27 AM CDT [facility] Blood 01/07/2017 2:23 AM CDT 01/07/2017 5:01 AM CDT us Izabela Diamond MD HEMATOLOGY ORDERABLES Final Re sult [facility] CLIA# [id number] [address] [place] [address] documented in this encounter Visit Diagnoses Not on filedocumented in this encounter Care Teams Reel Man Relationship Specialty Start Date End Date Shravan Jones DO [address] [address] PCP - General Family Practice 12/04/16 documented as of this encounter
--- OUTSIDE RECORDS SUMMARY | 2025-03-04 15:00 | XMS_ITS | Encounter Summary ---
Author Organization [facility] Address [address] [place] [address] Phone Care Team Providers Care Trauma Registrar Name Role Phone Alexis Garcia MD Primary Care Provider [phone] Encounter Details Date Type Department Care Team (Late st Contact Info) Description 04/16/2022 Orders Only [facility] [address] [place] [address] Chronic kidney disease, Stage IV [...] (severe) documented in this encounter Care Teams Trauma Registrar Relationship Specialty Start Date End Date Alexis Garcia MD [address] [place] [address] PCP - General Family Medicine 04/16/22 documented as of this encounter
--- OUTSIDE RECORDS SUMMARY | 2025-03-04 15:00 | XMS_ITS | Encounter Summary ---
Author Organization [facility] Address 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 [place] [address] Abel Menon DO [address] [facility] [address] [place] [address] documented as of this encounter Visit Diagnoses Not on filedocumented in this encounter Care Teams Leather Splitter Relationship Specialty Start Date End Date Shravan Jones DO [address] [address] PCP - General Family Practice 12/04/16 documented as of this encounter
--- OUTSIDE RECORDS SUMMARY | 2025-03-04 15:00 | XMS_ITS | Encounter Summary ---
Author Organization [facility] Address [address] [place] [address] Care Team Providers Care Dimensional Integration Engineer Name Role Phone Shravan Jones DO Primary Care Provider [phone] Reason for Visit * Reason Onset Date Comments Appointment Notification 11/05/2023 Encounter Details Date Type Department Care Team (Late st Contact Info) Description 11/05/2023 Telephone [facility] [address] [place] [address] Janell Beauchamp MD [address] [place] [address] Appointment Notification Social History Tobacco Use Types Packs/Day Years Used Date Smoking Tobacco: Every Day Comments:Quit smoking: pt le thargic Social Connections Answer Date Recorded In a typical week, how many times do you talk on the telephone with family, friends, or neighbors? 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 For 11/25 as she has other appts in town that day. Please call pt to reschedule. [facility] Integrated Circuit Design Engineer: Patrica Barney documented in this encounter Plan of Treatment Upcoming Encounters Date Type Department Care Team (Late st Contact Info) Description 05/19/2025 9:30 AM SUPERVISOR CURING ROOM [facility] [address] [address] Abel Menon DO [address] [phone] documented as of this encounter Visit Diagnoses Not on filedocumented in this encounter Additional Health Concerns Infection Onset Date Last Indicated Resolved Time R/O C. diff 07/06/2024 07/06/2024 07/06/2024 8:35 AM SUPERVISOR CURING ROOM documented as of this encounter Care Teams Dimensional Integration Engineer Relationship Specialty Start Date End Date Shravan Jones DO [address] [place] [address] PCP - General Family Practice 12/04/16 documented as of this encounter
--- OUTSIDE RECORDS SUMMARY | 2025-03-04 15:00 | XMS_ITS | Encounter Summary ---
Author Organization [facility], [facility] Address [address] [place] [address] Phone Care Team Providers Care Wincher Name Role Phone Alexis Garcia MD Primary Care Provider [phone] Encounter Details Date Type Department Care Team (Late st Contact Info) Description 12/29/2024 TCM in Dialysis Clinic [facility] [address] [place] [address] Yann Lozano NP [address] [place] [address] Social History Tobacco Use Types [...] CDT Patient: Donita Aguilar : 1985 C: [facility] Note Type: Dialysis TCM Service Date: 12/29/2024 The patient was seen for a pudk-qz-gkof visit as part of Transitional Care Management services. Attending Reference Investigator: MACHO JOHANSEN Dialysis Location: [facility] Schedule: Shift: 2 INTERACTIVE CONTACT This jupz-xi-kqqf visit occurred within 2 business days of the patient?s discharge. 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 [facility] Allergies Allergen: acetaminophen Reaction: Nausea/Vomiting TREATMENT MEDICATIONS [...] to follow with cardiology, pcp, pulmonology and property developer as noted on discharge. EDUCATION Education relevant [...] or secondary infection VISIT DIAGNOSES CPT Code 38011 - High complexity, seen within 7 days of discharge. I20.9 Angina pectoris (HCC) COMMENTS: Verified she has nitroglycerin on hand at home: reviewed appropriate usage. Instructed to call cardiology for follow up appointment K76.0 Fatty (change of) liver, not elsewhere classified COMMENTS: Newly dx on imaging. Per hospital records, has been referred to property developer. Monitor for liver dysfunction, assess for any needed support J18.9 Pneumonia, unspecified organism COMMENTS: Monitor for impaired perfusion, fever/chills, increased SOB. If symptoms present, send for CXray. 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 Left main has luminal irregularity with distal 10% stenosis. Cardiology recommended medical management. Negative for angina on assessment today Reviewed symptoms, usage of nitro: instructed to call cardiology for follow up appt. 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
--- OUTSIDE RECORDS SUMMARY | 2025-03-04 15:00 | XMS_ITS | Encounter Summary ---
Author Organization [facility] Address [address] [place] [address] Care Team Providers Care Porcelain Enameling Supervisor Name Role Phone Shravan Jones DO Primary Care Provider [phone] Encounter Details Date Type Department Care Team (Latest Contact Info) Description 05/14/2003 Outpatient [facility] Oral and Maxillo Surgery[address] [place] [address] Jimmy Tineo, CLIVES NO ADDRESS ON FILE UNSPEC DENTAL CARIES (Primary Dx); TOOTH POSITION ANOMALY Social History Tobacco Use Types Packs/Day Years Used Date Smoking Tobacco: Never Assessed Comments Unknown Sex and Gender Information Value Date Recorded Sex Assigned at Not on file Legal Sex Female 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
--- OUTSIDE RECORDS SUMMARY | 2025-03-04 15:00 | XMS_ITS | Clinical Summary ---
Author Organization [employer] Address [address] [facility] Attn: [place] [address] Care Team Providers Care Automatic I Threading Machine Feeder Name Role Phone Shravan Jones [...] subcutaneous injection. Active naloxone (NARCAN) 4 mg/spray [place], Non-Aerosol EMERGENCY USE ONLY: Administer 1 spray [...] regarding vascular access for dialysis for ESRD ([facility]) Take 1 Tablet (5 mg) by mouth [...] troponin 09/22/2023 Coronary artery disease invo lving [place] coronary artery of [place] heart without angina pectoris 09/21/2023 End stage [...] STL ABSTRACTION Provider, Abstract 12/30/2024 Orders Only [facility] Gastroenterology- [address] [place] [phone] Elizabeth Dougherty, SUZANNE Fatty liver (Primary Dx) 12/15/2024 External Device Data STL ABSTRACTION Provider, Abstract 12/04/2024 7:00 AM CDT - 12/04/2024 11:59 PM CDT Hospital Encounter [facility] Interventional Radiology [place] [facility] [place] [id number] Chey Navas MD Birlew, Ryan Avery, MD Discharge Disposition: Home or Self Care 12/03/[address] 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 Months Immunizations Immunization Administration [...] and Family Not on file 09/22/2023 Attends [employer] Not on file 09/21 Active Member [...] on file Legal Sex Female 3:34 PM CREW PERSON Gender Identity Not on file Sexual Orientation [...] st Contact Info) Description 05/19/2025 9:30 AM CREW PERSON Office Visit [facility] Gastroenterology- [place] [address] [facility] [address] [place] [address] Abel Menon D, DO [address] [address] Health Maintenance Due Date Last [...] 10/11/1999, 09/06/1999 Medical Devices Implanted Type Area Acreage Reporter Device Identifier Shelf Expiration Date Model / Serial / Lot Max dailym Flour [id number] - [id number] Implanted:Qty : 2 on 12/17/2016 by Deandre Alan MD Biological Left: Lung CR BARD- DAVOL INC 09/19/2019 [id number] / / [id number] Cath Dialysis Glidepath 14.5fr 24cm Std [id number] - [id number] Implanted:Qty : 1 on 03/18/2024 by Asif Mcclellan MD at [facility] Catheter Right: Chest BARD ANGEL VASC 09/21/2025 [id number] / / [id number] Clip Ligating Horizon Red 061429 - Csc - [id number] Implanted:Qty : 1 on 08/10/2024 by Chato Fitch MD at [facility] Clip Left: Arm TELEFLEX INC [id number] 05/16/2029 [id number] / / [id number] Clip Ligating Horizon Med Ti 870099 - Csc - [id number] Implanted:Qty : 1 on 08/10/2024 by Chato Fitch MD at [facility] Clip Left: Arm TELEFLEX- WECK CLOSURE SYS [id number] 03/31/2029 [id number] / / [id number] Cement Contractor Ligaclip Sml Mcs20 - [id number] Implanted:Qty : 1 on 08/10/2024 by Chato Fitch MD at [facility] Clip Left: Arm J&J- [employer] [id number] 03/23/2029 MCS20 / / [id number] Closure Perclose Prostyle Sut Mediate 16591-53 - [id number] Implanted:Qty : 1 on 09/24/2023 by Janell Beauchamp MD at [facility] Closure Device N/A: Groin LOVE- VASC DEVICE [id number] 06/23/2025 02137-68 / / [id number] Closure Perclose Prostyle Sut Mediate 69420-76 - [id number] Implanted:Qty : 1 on 10/24/2023 by Janell Beauchamp MD at [facility] Closure Device Right: Groin LOVE- VASC DEVICE [id number] 07/24/2025 45874-81 / / [id number] Oil Slc 8.5ml [id number] - Sgtin:[id number] Implanted:Qty : 1 on 06/23/2024 by Janey Carrera MD at [facility] Right: Eye [facility] 12/21/2026 [id number] / [id number] / [id number] Graft Vasc Propaten [id number] - [id number] Implanted:Qty : 1 on 08/10/2024 by Chato Fitch MD at [facility] Graft Left: Arm [employer] [id number] 05/21/2027 [id number] / [id number] / Agent Hemostat Surgicel 2x3in 3s - [id number] Implanted:Qty : 1 on 08/10/2024 by Chato Fitch MD at [facility] Hemostatic Left: Arm J&J- ETHICON INC [id number] 12/21/20283S / / [id number] Hemostatic Surgiflo 8ml W/ Thrombin 2994 - [id number] Implanted:Qty : 1 on 08/10/2024 by Chato Fitch MD at [facility] Hemostatic Left: Arm J&J- ETHICON INC [id number] 10/21/2025 2994 / / [id number] Agent Hemostat Surgicel 2x3in 1952s - [id number] Implanted:Qty : 1 on 08/10/2024 by Chato Fitch MD at [facility] Hemostatic Left: Arm J&J- ETHICON INC [id number] 12/21/2028 1953S / / [id number] Stent Synergy Xd 3.0x48mm Evrlms Elut [id number] - [id number] Implanted:Qty : 1 on 09/24/2023 by Janell Beauchamp MD at [facility] Stent N/A: Coronary BOSTON SCI GENEV[employer]E [id number] 03/31/2025 [id number] 300 / / [id number] Stent Synergy Xd 2.86y11gy Evrlms Elut [id number] - [id number] Implanted:Qty : 1 on 10/24/2023 by Janell Beauchamp MD at [facility] Stent Left: Coronary [employer] [id number] 08/19/2024 [id number] 220 / / [id number] Control Implant Funmi Procedures Procedure Name Priority Date/Time Associated Diagnosis Comments IR FISTULOGRAM Routine 12/04/2024 9:05 AM CDT ESRD (end stage renal disease) ([facility]) LIPID PANEL Routine 09/21/2023 6:47 PM CDT [...] dialysis. DIAGNOSIS: ESRD (end stage renal disease) ([facility]). Medications: Fentanyl and versed were titrated to effect. Moderate (conscious) sedation for this procedure was performed with continuous physician supervision. Medical history, physical exam, drug dosages, routes of drug administration, monitoring data, and precise times of service are documented in the medical record on the [facility]-approved form, 'Sedative/Analgesic Administration for Diagnostic and Therapeutic [...] transition dilator is exchanged for a 6 Romanian vascular sheath. An 8 mm angioplasty balloon [...] dialysis. DIAGNOSIS: ESRD (end stage renal disease) ([facility]). Medications: Fentanyl and versed were titrated to effect. Moderate (conscious) sedation for this procedure was performed with continuous physician supervision. Medical history, physical exam, drug dosages, routes of drug administration, monitoring data, and precise times of service are documented in the medical record on the [facility]-approved form, 'Sedative/Analgesic Administration for Diagnostic and Therapeutic [...] transition dilator is exchanged for a 6 Romanian vascular sheath. An 8 mm angioplasty balloon [...] (ABNORMAL) LIPID PANEL (09/21/2023 6:47 PM CDT) [facility] Signature CHOLESTEROL 96 <200 mg/dL 09/21/2023 10:29 PM CDT [facility] TRIGLYCERIDE 164(H) <150 mg/dL 09/21/2023 10:29 PM CDT [facility] HDL 36(L) 40 - 59 mg/dL 09/21/2023 10:29 PM CDT [facility] LDL CALCULATED 27 <100 mg/dL 09/21/2023 10:29 PM CDT [facility] NON-HDL CHOLESTEROL 60 <130 mg/dL 09/21/2023 10:29 PM T [facility] Blood Venipuncture / Unknown 09/21/2023 6:47 PM CDT 09/21/2023 7:10 PM CDT Narrative [facility] - 09/21/2023 10:29 PM CDT TOTAL [...] ORDERABLES Final R esult Performing Organization Address City/[facility] Co de Phone Number [facility] CLIA # [id number] [facility] [address] * (ABNORMAL) HEMOGLOBIN A1C (09/21/2023 6:46 PM CDT) HEMOGLOBIN A1C 6.8(H) <=5.6 % 09/23/2023 9:24 AM CDT [facility] EST. AVG GLUCOSE, A1C 148 mg/dL 09/23/2023 9:24 AM CDT [facility] Blood Venipuncture / Unknown 09/21/2023 6:46 PM CDT 09/21/2023 7:08 PM CDT Narrative [facility] - 09/23/2023 9:24 AM CDT HGB A1C INTERPRETATION NORMAL: <5.7% PRE-DIABETES: 5.7 - 6.4% DIABETES: 6.5% OR GREATER Luiz Lacy MD CHEMISTRY ORDERABLES Final R esult Performing Organization Address [facility] Co de Phone Number [facility] CLIA # [id number] [address] [id number] from Last 3 Months or Most Recently Relevant to Health Maintenance Insurance MEDICAID [place] MEDICARE PART A AND B Advance Directives For more information, please contact: [phone] * Full Code (Latest Code Status on File) Date Activated Date Inactivated Comments 10/24/2023 2:34 PM 10/25/2023 11:47 AM * Full Code Date Activated Date Inactivated Comments 10/24/2023 9:13 AM 10/24/2023 2:34 PM * Full Code Date Activated Date Inactivated Comments 09/24/2023 3:14 PM 09/25/2023 9:51 PM * Full Code Date Activated Date Inactivated Comments 09/21/2023 5:50 PM 09/24/2023 3:14 PM Care Teams Automatic I Threading Machine Feeder Relationship Specialty Start Date End Date Shravan Jones DO [address] [address] PCP - General Family Practice 12/04/16
--- OUTSIDE RECORDS SUMMARY | 2025-03-04 15:00 | XMS_ITS | Encounter Summary ---
Author Organization [facility] Address [address] [place] [address] Care Team Providers Care Detailer Furniture Name Role Phone Shravan Jones DO Primary Care Provider [phone] Encounter Details Date Type Department Care Team (Late st Contact Info) Description 01/09/2017 Lab Requisition [facility] Laboratory Services [facility] [address] [place] [address] Izabela Diamond MD NO ADDRESS ON FILE Social History Tobacco Use Types Packs/Day Years Used Date Smoking Tobacco: Every Day Cigarettes Comments:pt lethargic Comments Unknown Sex and Gender Information Value Date Recorded Sex Assigned at Not on file 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 Blood 01/09/2017 3:15 AM CDT 01/09/2017 5:12 AM CDT [facility] - 01/09/2017 5:53 AM CDT Due to [employer] update, MG+ reference range has changed from 1.8 - 2.4 mg/dL to the new reference range of 1.6 - 2.6 mg/dL. This will have limited patient impact. us Izabela Diamond MD CHEMISTRY ORDERABLES Final Res ult [facility] CLIA# [id number] [address] [place] [address] * (ABNORMAL) COMPREHENSIVE METABOLIC PANEL (01/09/2017 3:15 AM CDT) SODIUM 139 136 - 145 mmol/L 01/09/2017 5:53 AM CDT [facility] POTASSIUM 4.1 3.5 - 5.1 mmol/L 01/09/2017 5:53 AM T [facility] CHLORIDE 101 98 - 107 mmol/L 01/09/2017 5:53 AM T [facility] CO2 28 21 - 32 mmol/L 01/09/2017 5:53 AM T [facility] CALCIUM 8.8 8.4 - 10.1 mg/dL 01/09/2017 5:53 AM T [facility] BUN 18(H) 7 - 17 mg/dL 01/09/2017 5:53 AM T [facility] CREATININE 0.73 0.55 - 1.02 mg/dL 01/09/2017 5:53 AM T [facility] GLUCOSE 182(H) 74 - 106 mg/dL 01/09/2017 5:53 AM T [facility] TOTAL PROTEIN 8.4(H) 6.4 - 8.2 g/dL 01/09/2017 5:53 AM T [facility] ALBUMIN 2.5(L) 3.4 - 5.0 g/dL 01/09/2017 5:53 AM CDT [facility] BILIRUBIN TOTAL 0.2 0.2 - 1.0 mg/dL 01/09/2017 5:53 AM CDT [facility] ALKALINE PHOSPHATASE 99 25 - 100 U/L 01/09/2017 5:53 AM CDT [facility] AST 30 15 - 37 U/L 01/09/2017 5:53 AM CDT [facility] ALT 27 13 - 61 U/L 01/09/2017 5:53 AM CDT [facility] GFR >60 >=60 mL/min/1.7 3 sq meter 01/09/2017 5:53 AM T [facility] Comment: eGFR has not been validated for [...] 3 sq meter 01/09/2017 5:53 AM CDT [facility] ANION GAP 10 4 - 30 mmol/L 01/09/2017 5:53 AM T [facility] Blood 01/09/2017 3:15 AM CDT 01/09/2017 5:12 AM CDT us Izabela Diamond MD CHEMISTRY ORDERABLES Final Res ult [facility] CLIA# [id number] [address] [place] [address] * (ABNORMAL) CBC WITH DIFFERENTIAL (01/09/2017 3:15 AM CDT) WBC 8.7 4.5 - 11.0 K/uL 01/09/2017 5:20 AM [facility] RBC 4.63 4.20 - 5.40 M/uL 01/09/2017 5:20 AM [facility] HEMOGLOBIN 11.3(L) 12.0 - 16.0 g/dL 01/09/2017 5:20 AM [facility] HEMATOCRIT 36.8 36.0 - 46.0 % 01/09/2017 5:20 AM [facility] MCV 79.5(L) 84.0 - 103.0 fL 01/09/2017 5:20 AM [facility] MCH 24.4(L) 27.0 - 34.0 pg 01/09/2017 5:20 AM [facility] MCHC 30.7 30.0 - 35.0 g/dL 01/09/2017 5:20 AM [facility] RDW 17.3(H) 11.0 - 14.5 % 01/09/2017 5:20 AM [facility] RDW-STDEV 50.4 37.0 - 54.0 fL 01/09/2017 5:20 AM [facility] PLATELETS 463(H) 140 - 440 K/uL 01/09/2017 5:20 AM [facility] MPV 9.9 8.9 - 12.8 fL 01/09/2017 5:20 AM [facility] NEUTROPHILS 46 42 - 75 % 01/09/2017 5:20 AM [facility] LYMPHOCYTES 33 24 - 44 % 01/09/2017 5:20 AM [facility] MONOCYTES 8 2 - 10 % 01/09/2017 5:20 AM [facility] EOSINOPHILS 11(H) 0 - 7 % 01/09/2017 5:20 AM [facility] BASOPHILS 1 0 - 1 % 01/09/2017 5:20 AM [facility] IMMATURE GRANULOCYTES 0 0 - 2 % 01/09/2017 5:20 AM [facility] NEUTROPHIL ABSOLUTE 4.05 2.00 - 8.00 K/uL 01/09/2017 5:20 AM CDT [facility] LYMPHOCYTE ABSOLUTE 2.86 1.20 - 4.00 K/uL 01/09/2017 5:20 AM CDT [facility] MONOCYTE ABSOLUTE 0.73(H) 0.10 - 0.60 K/uL 01/09/2017 5:20 AM CDT [facility] EOSINOPHIL ABSOLUTE 0.95(H) 0.00 - 0.70 K/uL 01/09/2017 5:20 AM CDT [facility] BASOPHILS ABSOLUTE 0.11 0.00 - 0.20 K/uL 01/09/2017 5:20 AM CDT [facility] IMMATURE GRANULOCYTES ABSOLUTE 0.03 0.00 - 0.10 K/uL 01/09/2017 5:20 AM CDT [facility] Blood 01/09/2017 3:15 AM CDT 01/09/2017 5:12 AM CDT us Izabela Diamond MD HEMATOLOGY ORDERABLES Final Re sult [facility] CLIA# [id number] [address] [place] [address] * (ABNORMAL) HEMOGLOBIN A1C (01/09/2017 2:52 AM CDT) HEMOGLOBIN A1C 8.9(H) 4.0 - 6.0 % 01/09/2017 1:31 PM [address] [facility] EST. AVG GLUCOSE, A1C 209 mg/dL 01/09/2017 1:31 PM CD[address] [facility] Blood 01/09/2017 2:52 AM CDT 01/09/2017 6:53 AM CDT Narrative [facility] - 01/09/2017 1:31 PM CDT Test performed on Buzz[employer] instrumentation using HPLC methodology us Izabela Diamond MD CHEMISTRY ORDERABLES Final Res ult [facility] CLIA# [id number] [address] [place] [address] documented in this encounter Visit Diagnoses Not on filedocumented in this encounter Care Teams Detailer Furniture Relationship Specialty Start Date End Date Shravan Jones DO [address] [address] PCP - General Family Practice 12/04/16 documented as of this encounter
--- OUTSIDE RECORDS SUMMARY | 2025-03-04 15:00 | XMS_ITS | Encounter Summary ---
Author Organization [facility] Address [address] [place] [address] Phone Care Team Providers Care Shipping Point Inspector Name Role Phone Alexis Garcia MD Primary Care Provider [phone] Encounter Details Date Type Department Care Team (Late st Contact Info) Description 03/02/2025 Orders Only [facility] [address] [place] [address] Chey Navas MD [address] [place] [address] Social History Tobacco Use Types [...] ORDERABLES Final Re sult Performing Organization Address [facility] Co de Phone Number [facility] See order comments or contact performing lab Unknown, [place] * POST CHEMISTRY (03/02/2025) BUN Post Dialysis 11 6 - 19 mg/dL [facility] 03/02/2025 03/03/2025 11: 41 AM CDT Narrative [facility] - 03/03/2025 Unless otherwise specified, test(s) performed at: [facility] [address] [place] [address] OUTDOOR ADVERTISING LEASING AGENT: Jose Luis France M.D. For any questions, please call customer service at FREQUENCY:MONTHLY Resulting Agency Comment Specimen source: Plasma us Chey Navas MD LAB BLOOD ORDERABLES Final Re sult Performing Organization Address [facility] de Phone Number [facility] [employer] [facility] See order comments or contact performing lab Unknown, [place] * (ABNORMAL) SPECIAL CHEMISTRY (03/02/2025) Hemoglobin A1C 6.5(H) 4.8 - 5.9 % [facility] 03/02/2025 03/03/2025 11: 04 AM CDT Narrative Resulting Agency Comment Specimen source: Blood us Chey Navas MD LAB BLOOD BANK TEST ORDERABLE S Final Result Performing Organization Address [facility] Co de Phone Number [facility] [employer] [facility] See order comments or contact performing lab [...] 03/03/2025 Unless otherwise specified, test(s) performed at: [facility] [address] [place] [address] OUTDOOR ADVERTISING LEASING AGENT: Jose Luis France M.D. For any questions, please call customer service at FREQUENCY:MONTHLY Resulting Agency Comment Specimen source: Blood Chey Navas MD LAB BLOOD ORDERABLES Final Re sult [facility] See order comments or contact performing lab Unknown, [place] * TRACE ELEMENTS (03/02/2025) Aluminum 5 0 - 10 mcg/L [facility] Comment: This test was developed and its performance characteristics determined by [facility] It has not been cleared or approved by the FDA. The laboratory is regulated under CLIA as qualified to perform high complexity testing. This test is used for clinical purposes. It should not be regarded as investigational or for research. 03/02/2025 03/03/2025 10: 54 AM CDT Narrative [facility] - 03/03/2025 Unless otherwise specified, test(s) performed at: [facility] [address] [place] [address] OUTDOOR ADVERTISING LEASING AGENT: Jose Luis France M.D. For any questions, please call customer service at FREQUENCY:MONTHLY Resulting Agency Comment Specimen source: Serum us Chey Navas MD LAB BLOOD ORDERABLES Final Re sult Performing Organization Address [facility] de Phone Number [facility] See order comments or contact performing lab Unknown, [place] * IMMUNO CHEMISTRY (03/02/2025) Pathologist [facility] Hepatitis C Antibody Nonreactive Nonreactive [facility] Comment: No HCV antibody detected. The above test result was obtained using Siemens GeoDigitalaur XP chemiluminescent method. Results obtained with different assay methods or kits cannot be used interchangeably. S/CO Ratio 0.03 0.00 - 0.79 [facility] Comment: s/co ratio Interpretation Supplemental testing <0.80 Nonreactive No further testing required. 0.80-0.99 Equivocal HCV RNA Quantitative Real-Time PCR is recommended. 1.00->11.00 Reactive HCV RNA Quantitative Real-Time PCR is recommended to distinguish active from resolved cases. 03/02/2025 03/03/2025 11: 29 AM CDT Narrative [facility] - 03/03/2025 Unless otherwise specified, test(s) performed at: [facility] [address] [place] [id number] OUTDOOR ADVERTISING LEASING AGENT: Jose Luis France M.D. For any questions, please call customer service at FREQUENCY:MONTHLY Resulting Agency Comment Specimen source: Serum us Chey Navas MD LAB BLOOD ORDERABLES Final Re sult Performing Organization Address [facility] de Phone Number [facility] See order comments or contact performing lab Unknown, [place] * (ABNORMAL) [facility] (03/02/2025) Pathologist [facility] PTH 804(H) 16 - 80 pg/mL [facility] 03/02/2025 03/03/2025 10: 56 AM CDT Narrative [facility] - 03/03/2025 Unless otherwise specified, test(s) performed at: [facility] [address] [place] [address] OUTDOOR ADVERTISING LEASING AGENT: Jose Luis France M.D. For any questions, please call customer service at FREQUENCY:MONTHLY Resulting Agency Comment Specimen source: Plasma Chey Navas MD LAB BLOOD ORDERABLES Final Re sult [facility] See order comments or contact performing [...] 03/03/2025 Unless otherwise specified, test(s) performed at: [facility] [address] [place] [address] OUTDOOR ADVERTISING LEASING AGENT: Jose Luis France M.D. For any questions, please call customer service at FREQUENCY:MONTHLY Resulting Agency Comment Specimen source: Serum us Chey Navas MD LAB BLOOD ORDERABLES Edited R esult - Final [facility] See order comments or contact performing lab Unknown, [place] documented in this encounter Visit Diagnoses Not on filedocumented in this encounter Care Teams Shipping Point Inspector Relationship Specialty Start Date End Date Alexis Garcia MD [address] [place] [address] PCP - General Family Medicine 04/16/22 documented as of this encounter
--- OUTSIDE RECORDS SUMMARY | 2025-03-04 15:00 | XMS_ITS | Encounter Summary ---
Author Organization [facility] Address [address] [place] [address] Care Team Providers Care Rabies Inspector Name Role Phone Shravan Jones DO Primary Care Provider [phone] Encounter Details Date Type Department Care Team (Late st Contact Info) Description 12/28/2016 Lab Requisition [facility] Laboratory Services [address] [place] [address] David Ortega MD [address] [place] [address] Social History Tobacco Use Types Packs/Day Years Used Date Smoking Tobacco: Every Day Cigarettes Comments:pt lethargic Comments Unknown Sex and Gender Information Value Date Recorded Sex Assigned at Not on file Legal Sex Female 4:38 AM CONTROLS DESIGNER Gender Identity Not on file Sexual Orientation [...] * PHOSPHORUS (12/28/2016 2:39 AM CDT) Pathologist [facility] PHOSPHORUS 3.4 2.5 - 4.9 mg/dL 12/28/2016 5:42 AM CDT [facility] Blood Collection / Unknown 12/28/2016 2:39 AM CDT 12/28/2016 5:01 AM CDT David Ortega MD CHEMISTRY ORDERABLES Final Res ult Performing Organization Address [facility] Co de Phone Number [facility] CLIA# [id number] [address] [place] [phone] * MAGNESIUM LEVEL (12/28/2016 2:39 AM CDT) [facility] MAGNESIUM 1.6 1.6 - 2.6 mg/dL 12/28/2016 5:42 AM CDT [facility] Blood Collection / Unknown 12/28/2016 2:39 AM CDT 12/28/2016 5:01 AM CDT Narrative [facility] - 12/28/2016 5:42 AM CDT Due to Particle Board Supervisor update, MG+ reference range has changed from 1.8 - 2.4 mg/dL to the new reference range of 1.6 - 2.6 mg/dL. This will have limited patient impact. David Ortega MD CHEMISTRY ORDERABLES Final Res ult Performing Organization Address [facility] Co de Phone Number [facility] CLIA# [id number] [address] [place] [phone] * PROTIME-INR (12/28/2016 2:39 AM CDT) [facility] PROTIME 15.0 12.3 - 15.5 Seconds 12/28/2016 5:16 AM CDT [facility] INR 1.1 0.8 - 1.2 12/28/2016 5:16 AM CDT [facility] Blood Collection / Unknown 12/28/2016 2:39 AM CDT 12/28/2016 5:01 AM CDT [place] [facility] - 12/28/2016 5:16 AM CDT Expected Values for INR: DVT/PE Goal INR 2.5; range 2.0 - 3.0 Valve Replacement Tissue Goal INR 2.5; range 2.0 - 3.0 Valve Replacement Mechanical Goal INR 3.0; range 2.5 - 3.5 POST-GA Goal INR 2.5; range 2.0 - 3.0 or Goal INR 3.0; range 2.5 - 3.5 Atrial Fibrillation Goal INR 2.5; range 2.0 - 3.0 Ischemic Stroke Goal INR 2.5; range 2.0 - 3.0 For additional information see Guidelines for Anticoagulation available from the pharmacy Wendy Vargas Pharm D. David Ortega MD HEMATOLOGY ORDERABLES Final Re sult [facility] CLIA# [id number] [address] [place] [phone] * (ABNORMAL) PTT (12/28/2016 2:39 AM CDT) PTT 39.1(H) 24.8 - 38.8 seconds 12/28/2016 5:16 AM CDT [facility] Blood Collection / Unknown 12/28/2016 2:39 AM CDT 12/28/2016 5:01 AM CDT [place] [facility] - 12/28/2016 5:16 AM CDT Therapeutic Range: Hi-level PE/DVT heparin protocol 80.1 - 95.0 sec Lo-level PE/DVT heparin protocol 70.1 - 85.0 sec Cardiac Heparin Protocol 70.1 - 100.0 sec David Ortega MD HEMATOLOGY ORDERABLES Final Re sult [facility] CLIA# [id number] Critical access hospital[address] [place] [address] * (ABNORMAL) CBC WITH DIFFERENTIAL (12/28/2016 2:39 AM CDT) Pathologist [facility] WBC 11.0 4.5 - 11.0 K/uL 12/28/2016 5:09 AM CDT [facility] RBC 3.80(L) 4.20 - 5.40 M/uL 12/28/2016 5:09 AM CDT [facility] HEMOGLOBIN 9.3(L) 12.0 - 16.0 g/dL 12/28/2016 5:09 [facility] 30.6(L) 36.0 - 46.0 % 12/28/2016 5:09 AM CDT [facility] MCV 80.5(L) 84.0 - 103.0 fL 12/28/2016 5:09 AM CDT [facility] MCH 24.5(L) 27.0 - 34.0 pg 12/28/2016 5:09 AM CDT [facility] MCHC 30.4 30.0 - 35.0 g/dL 12/28/2016 5:09 AM CDT [facility] RDW 17.3(H) 11.0 - 14.5 % 12/28/2016 5:09 AM T [facility] RDW-STDEV 51.8 37.0 - 54.0 fL 12/28/2016 5:09 AM CDT [facility] PLATELETS 757(H) 140 - 440 K/uL 12/28/2016 5:09 AM CDT [facility] MPV 8.9 8.9 - 12.8 fL 12/28/2016 5:09 AM CDT [facility] NEUTROPHILS 65 42 - 75 % 12/28/2016 5:09 AM CDT [facility] LYMPHOCYTES 19(L) 24 - 44 % 12/28/2016 5:09 AM CDT [facility] MONOCYTES 10 2 - 10 % 12/28/2016 5:09 AM CDT [facility] EOSINOPHILS 5 0 - 7 % 12/28/2016 5:09 AM CDT [facility] BASOPHILS 1 0 - 1 % 12/28/2016 5:09 AM CDT [facility] IMMATURE GRANULOCYTES 1 0 - 2 % 12/28/2016 5:09 AM CDT [facility] NEUTROPHIL ABSOLUTE 7.19 2.00 - 8.00 K/uL 12/28/2016 5:09 AM CDT [facility] LYMPHOCYTE ABSOLUTE 2.04 1.20 - 4.00 K/uL 12/28/2016 5:09 AM CDT [facility] MONOCYTE ABSOLUTE 1.06(H) 0.10 - 0.60 K/uL 12/28/2016 5:09 AM CDT [facility] EOSINOPHIL ABSOLUTE 0.60 0.00 - 0.70 K/uL 12/28/2016 5:09 AM CDT [facility] BASOPHILS ABSOLUTE 0.07 0.00 - 0.20 K/uL 12/28/2016 5:09 AM CDT [facility] IMMATURE GRANULOCYTES ABSOLUTE 0.07 0.00 - 0.10 K/uL 12/28/2016 5:09 AM T [facility] Blood Collection / Unknown 12/28/2016 2:39 AM CDT 12/28/2016 5:01 AM CDT us David Ortega MD HEMATOLOGY ORDERABLES Final Re sult [facility] CLIA# [id number] [address] [place] [address] * (ABNORMAL) COMPREHENSIVE METABOLIC PANEL (12/28/2016 2:39 AM CDT) SODIUM 143 136 - 145 mmol/L 12/28/2016 5:47 AM CDT [facility] POTASSIUM 3.3(L) 3.5 - 5.1 mmol/L 12/28/2016 5:47 AM [facility] CHLORIDE 103 98 - 107 mmol/L 12/28/2016 5:47 AM [facility] CO2 29 21 - 32 mmol/L 12/28/2016 5:47 AM [facility] CALCIUM 8.9 8.4 - 10.1 mg/dL 12/28/2016 5:47 AM [facility] BUN 13 7 - 17 mg/dL 12/28/2016 5:47 AM [facility] CREATININE 0.70 0.55 - 1.02 mg/dL 12/28/2016 5:47 AM [facility] GLUCOSE 46(LL) 74 - 106 mg/dL 12/28/2016 5:47 AM [facility] TOTAL PROTEIN 8.2 6.4 - 8.2 g/dL 12/28/2016 5:47 AM [facility] ALBUMIN 1.8(L) 3.4 - 5.0 g/dL 12/28/2016 5:47 AM [facility] BILIRUBIN TOTAL 0.2 0.2 - 1.0 mg/dL 12/28/2016 5:47 AM [facility] ALKALINE PHOSPHATASE 93 25 - 100 U/L 12/28/2016 5:47 AM [facility] AST 18 15 - 37 U/L 12/28/2016 5:47 AM [facility] ALT 18 13 - 61 U/L 12/28/2016 5:47 AM [facility] GFR >60 >=60 mL/min/1.7 3 sq meter 12/28/2016 5:47 AM [facility] Comment: eGFR has [...] sq meter 12/28/2016 5:47 AM CDT [facility] ANION GAP 11 4 - 30 mmol/L 12/28/2016 5:47 AM CDT [facility] Blood Collection / Unknown 12/28/2016 2:39 AM CDT 12/28/2016 5:01 AM CDT us David Ortega MD CHEMISTRY ORDERABLES Final Res ult [facility] CLIA# [id number] [address] [place] [address] documented in this encounter Visit Diagnoses Not on filedocumented in this encounter Care Teams Rabies Inspector Relationship Specialty Start Date End Date Shravan Jones DO [address] [address] PCP - General Family Practice 12/04/16 documented as of this encounter
[2025-03-04 15:03] LABS: Hematocrit 25.6 % (36-47); Hemoglobin 8.30 g/dL (11.27-16.99); Mean Corpuscular HGB Conc 32.4 g/dL (30-55); Mean Corpuscular Hemoglobin 31.3 pg (27-33); Mean Corpuscular Volume 96.6 fl (85-98); Nucleated Red Blood Cells % 0 %; Platelet Count 182 10^3/cmm (157-399); Red Blood Count 2.65 10^6/uL (3.85-5.65); White Blood Count 6.70 10^3/uL (3.29-11.43)
[2025-03-04] MEDS: morphine 4 mg/mL SDV 1 mL 2 MG IVP (15:05)
[2025-03-04 15:40] LABS: Troponin(5th) Baseline 206 ng/L (0-10)
[2025-03-04 15:44] LABS: Alanine Aminotransferase 23 U/L (0-33); Albumin Level 3.7 g/dL (3.5-5.2); Alkaline Phosphatase 157 U/L (35-105); Anion Gap 15.1 (5-19); Aspartate Amino Transferase 22 U/L (0-32); Blood Urea Nitrogen 21 mg/dL (6-20); Calcium 8.7 mg/dL (8.5-10.5); Carbon Dioxide 28 mmol/L (22-29); Chloride 98 mmol/L (98-107); Creatinine Clr Calc Pharmacy 13.3164; Globulin 3.5 g/dL (1.3-4.6); Glucose 180 mg/dL (65-115); Osmolality Calculated 292 mOsm/kg (285-295); Potassium 4.1 mmol/L (3.5-5.1); Sodium 137 mmol/L (136-145); Total Protein 7.2 g/dL (6.6-8.7)
--- NOTE | 2025-03-04 16:17 | ECG_ITS ---
[employer] Test Date: 2025-03-04 Pat Name: Donita Aguilar Department: Room: Gender: Female Contract Paralegal: : 1985 Requested By: Dawna Nick Order Number: [id number] Faviola MD: JOSEFA TALLEY Measurements Intervals [place] Rate: 70 P: 60 [place]: 181 QRS: 7 QRSD: 102 T: 28 QT: 416 QTc: 449 Interpretive Statements SINUS RHYTHM POSSIBLE LEFT ATRIAL ENLARGEMENT [-0.1mV P-WAVE IN V1/V2] Compared to ECG 03/04/2025 14:18:21 T-wave abnormality no longer present Electronically Signed On 03-05-2025 20:17:01 CDT by JOSEFA TALLEY [email or web address]
[2025-03-04 17:31] LABS: Troponin 5 2HR 194.0 ng/L (0-10); Troponin 5 2HR Delta -12.0 ABS# (0-10)
[2025-03-04] MEDS: HYDROcodone-acetaminophen 10-325 mg Tablet 1 TAB PO (18:12)
== END 2025-03-04 18:14 | disposition home or self-care (01) ==
PROVIDERS: Emergency Provider Emergency Medicine; PCP Nurse Practitioner Family
DX: R07.9 Chest pain, unspecified (principal); Z79.82 Long term (current) use of aspirin; Z79.4 Long term (current) use of insulin; Z79.02 Long term (current) use of antithrombotics/antiplatelets; Z87.891 Personal history of nicotine dependence; J44.9 Chronic obstructive pulmonary disease, unspecified; I25.10 Atherosclerotic heart disease of native coronary artery without angina pectoris; E10.22 Type 1 diabetes mellitus with diabetic chronic kidney disease; I13.2 Hypertensive heart and chronic kidney disease with heart failure and with stage 5 chronic kidney disease, or end stage renal disease; I50.9 Heart failure, unspecified; N18.6 End stage renal disease; Z99.2 Dependence on renal dialysis
CPT/HCPCS: 36415; 71045; 80053; 84484; 85025; 93005; 96374; 99285; J2270; J9999

== ENCOUNTER → 2025-03-08 10:56 | Outpatient (BNVA) | payer MEDICARE, MEDICAID, SELFPAY | PROVIDERS: PCP Nurse Practitioner Family; Visit Provider Internal Medicine Cardiovascular Disease | DX: I25.10 Atherosclerotic heart disease of native coronary artery without angina pectoris (principal); I13.0 Hypertensive heart and chronic kidney disease with heart failure and stage 1 through stage 4 chronic kidney disease, or unspecified chronic kidney disease; E10.22 Type 1 diabetes mellitus with diabetic chronic kidney disease; E10.65 Type 1 diabetes mellitus with hyperglycemia; N18.30 Chronic kidney disease, stage 3 unspecified; I50.30 Unspecified diastolic (congestive) heart failure; Z79.4 Long term (current) use of insulin; Z99.2 Dependence on renal dialysis; E78.5 Hyperlipidemia, unspecified; M94.0 Chondrocostal junction syndrome [Tietze]; Z79.02 Long term (current) use of antithrombotics/antiplatelets; Z79.82 Long term (current) use of aspirin; Z95.5 Presence of coronary angioplasty implant and graft; Z87.891 Personal history of nicotine dependence | CPT/HCPCS: 99214 ==

== ENCOUNTER 2025-03-21 19:15 | Emergency (ER) | payer MEDICARE, MEDICAID, SELFPAY ==
[2025-03-21] VITALS (10 sets, daily range): BP systolic 109–134; BP diastolic 58–70; PULSE 61–69; RESP 13–20; O2SAT 94–100; BMI 28.5
--- OUTSIDE RECORDS SUMMARY | 2025-03-21 19:20 | XMS_ITS | Encounter Summary ---
Author Organization [facility], [facility] Address [address] [place] [address] Phone Care Team Providers Care Harness Installer Name Role Phone Alexis Garcia MD Primary Care Provider [phone] Encounter Details Date Type Department Care Team (Late st Contact Info) Description 12/29/2024 TCM in Dialysis Clinic [facility], [facility] [address] [place] [address] Yann Lozano NP [address] [place] [address] Social History Tobacco Use Types [...] Donita Aguilar : 1985 C: [facility] Note Type: Dialysis TCM Service Date: 12/29/2024 The patient was seen for a vlrq-qs-[id number] visit as part of Transitional Care Management services. Attending Polymerization Helper: MACHO JOHANSEN Dialysis Location: [facility] Schedule: Shift: 2 INTERACTIVE CONTACT This ayok-yi-ussz visit occurred within 2 business days of the patient?s discharge. 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 [facility] Allergies Allergen: acetaminophen Reaction: Nausea/Vomiting TREATMENT [...] to follow with cardiology, pcp, pulmonology and blood collector as noted on discharge. EDUCATION Education relevant [...] or secondary infection VISIT DIAGNOSES CPT Code 72443 - High complexity, seen within 7 days of discharge. I20.9 Angina pectoris (HCC) COMMENTS: Verified she has nitroglycerin on hand at home: reviewed appropriate usage. Instructed to call cardiology for follow up appointment K76.0 Fatty (change of) liver, not elsewhere classified COMMENTS: Newly dx on imaging. Per hospital records, has been referred to blood collector. Monitor for liver dysfunction, assess for any needed support J18.9 Pneumonia, unspecified organism COMMENTS: Monitor for impaired perfusion, fever/chills, increased SOB. If symptoms present, send for CXray. 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 Left main has luminal irregularity with distal 10% stenosis. Cardiology recommended medical management. Negative for angina on assessment today Reviewed symptoms, usage of nitro: instructed to call cardiology for follow up appt. 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
--- OUTSIDE RECORDS SUMMARY | 2025-03-21 19:20 | XMS_ITS | Clinical Summary ---
Author Organization [facility] Facility Address [address] [address] Care Team Providers Care Supervisor Acoustical Tile Carpenters Name Role Phone Alexis Garcia MD Primary Care Provider [phone] Encounters Date Type Department Care Team Description 03/18/2025 Orders Only [facility], [facility] [address] [place] [address] Chey Navas MD 03/16/2025 Treatment [facility], [facility] [address] [place] [address] Chey Navas MD End stage renal disease; Dependence on renal dialysis 03/11/2025 Orders Only [place] [facility], [facility] [address] [place] [address] Chey Navas MD 03/09/2025 Treatment [facility], [facility] [address] [place] [address] Melissa Wiley NP End stage renal disease; Dependence on renal dialysis 03/04/2025 Orders Only [place] [facility], [facility] [address] [place] [address] Chey Navas MD 03/02/2025 Orders Only [place] [facility] [place], [facility] [address] [place] [address] Chey Navas MD 03/02/[address] [place] [address] [facility] [place], [facility] [address] [place] [address] Melissa Wiley NP End stage renal disease; Dependence on renal dialysis 02/18/2025 Orders Only [facility], [facility] [address] [place] [address] Chey Navas MD 02/11/2025 Orders Only [facility], [facility] [address] [place] [address] Chey Navas MD 02/09/2025 Treatment [facility], [facility] [address] [place] [address] Chey Navas MD End stage renal disease; Dependence on renal dialysis 02/04/2025 Orders Only [facility], [facility] [address] [place] [address] Chey Navas MD 02/02/2025 Treatment [facility], [facility] [address] [place] [address] Karlene Cespedes, ACCOUNTS PAYABLE SUPERVISOR End stage renal disease; Dependence on renal dialysis 01/28/2025 Treatment [facility], [facility] [address] [place] [address] Melissa Wiley, HAYDEE End stage renal disease; Dependence on renal dialysis 01/28/2025 Orders Only [facility], [facility] [address] [place] [address] Chey Navas MD 01/21/2025 Orders Only [facility], [facility] [address] [place] [address] Chey Navas MD 01/14/2025 Orders Only [facility], [facility] [address] [place] [address] Chey Navas MD 01/12/2025 [facility], [facility] [address] [place] [address] Chey Navas MD End stage renal disease; Dependence on renal dialysis 01/07/2025 Orders Only [facility], [facility] [address] [place] [address] Chey Navas MD 01/05/[address] [place] [address], [facility] [address] [place] [address] Karlene Cespedes NP End stage renal disease; Dependence on renal dialysis 12/31/2024 Orders Only [facility], [facility] [address] [place] [address] Chey Navas MD 12/29/2024 TCM in Dialysis Clinic [address] [place] [address], [facility] [address] [place] [address] Melissa Wiley NP 12/29/[address] [place] [address], [facility] [address] [place] [address] Melissa Wiley NP End stage renal disease; Dependence on renal dialysis 12/24/2024 Orders Only [facility], [facility] [address] [place] [address] Chey Navas MD 12/22/[address] [place] [address], [facility] [address] [place] [address] Melissa Wiley NP End stage [...] Priority Date/Time Associated Diagnosis Comments HEMATOLOGY Routine 03/18/2025 HEMATOLOGY Routine 03/11/2025 HEMATOLOGY Routine 03/04/2025 [facility] RESULTS Routine 03/02/2025 HD KINETICS Routine 03/02/2025 POST CHEMISTRY Routine [...] 12/24/2024 CHEMISTRY Routine 12/24/2024 HEMATOLOGY Routine 12/24/2024 from Last 3 Months Results * (ABNORMAL) HEMATOLOGY (03/18/2025) Only the most recent of13 resultswithin the time period is included. Hemoglobin 8.0(L) 12.0 - 16.0 g/dL [facility] Hemoglobin x 3 24(L) 36.0 - 48.0 % [facility] 03/18/2025 03/19/2025 8:4 3 AM CDT Narrative [facility] - 03/19/2025 Unless otherwise specified, test(s) performed at: [facility], [address] [place] [address] COKE WORKER: Jose Luis France M.D. For any questions, please call customer service at FREQUENCY:OTHER Resulting Agency Comment Specimen source: Blood Chey Navas MD LAB BLOOD ORDERABLES Final Re sult [facility] See order comments or contact performing lab Unknown, [place] * HD KINETICS (03/02/2025) Only the most recent of3 resultswithin the time period is included. % Urea Reduction 80 65 - 80 % [facility] 03/02/2025 03/03/2025 11: 41 AM CDT Narrative Resulting Agency Comment Specimen source: Plasma us Chey Navas MD LAB BLOOD ORDERABLES Final Re sult Performing Organization Address [facility] de Phone Number [facility] See order comments or contact performing lab Unknown, [place] * (ABNORMAL) SPECIAL CHEMISTRY (03/02/2025) Hemoglobin A1C 6.5(H) 4.8 - 5.9 % [facility] 03/02/2025 03/03/2025 11: 04 AM CDT Narrative Resulting Agency Comment Specimen source: Blood us Chey Navas MD LAB BLOOD BANK TEST ORDERABLE S Final Result Performing Organization Address [facility] Phone Number [facility] See order comments or contact performing lab Unknown, [place] * POST CHEMISTRY (03/02/2025) Only the most recent of3 resultswithin the time period is included. BUN Post Dialysis 11 6 - 19 mg/dL [facility] 03/02/2025 03/03/2025 11: 41 AM CDT Narrative [facility] - 03/03/2025 Unless otherwise specified, test(s) performed at: [facility], [address] [place] [address] COKE WORKER: Jose Luis France M.D. For any questions, please call customer service at FREQUENCY:MONTHLY Resulting Agency Comment Specimen source: Plasma us Chey Navas MD LAB BLOOD ORDERABLES Final Re sult Performing Organization Address [facility] de Phone Number [facility] See order comments or contact performing lab Unknown, [place] * IMMUNO CHEMISTRY (03/02/2025) Hepatitis C Antibody Nonreactive Nonreactive [facility] Comment: No HCV antibody detected. The above test result was obtained using Siemens Centaur XP chemiluminescent method. Results obtained with different assay methods or kits cannot be used interchangeably. S/CO Ratio 0.03 0.00 - 0.79 [facility] Comment: s/co ratio Interpretation Supplemental testing <0.80 Nonreactive No further testing required. 0.80-0.99 Equivocal HCV RNA Quantitative Real-Time PCR is recommended. 1.00->11.00 Reactive HCV RNA Quantitative Real-Time PCR is recommended to distinguish active from resolved cases. 03/02/2025 03/03/2025 11: 29 AM CDT Narrative [facility] - 03/03/2025 Unless otherwise specified, test(s) performed at: [facility], [address] [place] [address] COKE WORKER: Jose Luis France M.D. For any questions, please call customer service at FREQUENCY:MONTHLY Resulting Agency Comment Specimen source: Serum us Chey Navas MD LAB BLOOD ORDERABLES Final Re sult [facility] See order comments or contact performing lab Unknown, [place] * TRACE ELEMENTS (03/02/2025) Pathologist [facility] Aluminum 5 0 - 10 mcg/L [facility] Comment: This test was developed and its performance characteristics determined by [facility]. It has not been cleared or approved by the FDA. The laboratory is regulated under CLIA as qualified to perform high complexity testing. This test is used for clinical purposes. It should not be regarded as investigational or for research. 03/02/2025 03/03/2025 10: 54 AM CDT Narrative [facility] - 03/03/2025 Unless otherwise specified, test(s) performed at: [facility] [address] COKE WORKER: Jose Luis France M.D. For any questions, please call customer service at FREQUENCY:MONTHLY Resulting Agency Comment Specimen source: Serum Chey Navas MD LAB BLOOD ORDERABLES Final Re sult [facility] See order comments or contact performing lab Unknown, [place] * (ABNORMAL) [facility] (03/02/2025) Only the most recent of6 resultswithin the time period is included. Pathologist [facility] PTH 804(H) 16 - 80 pg/mL [facility] 03/02/2025 03/03/2025 10: 56 AM CDT Narrative [facility] - 03/03/2025 Unless otherwise specified, test(s) performed at: [facility], [address] [place] [address] COKE WORKER: Jose Luis France M.D. For any questions, please call customer service at FREQUENCY:MONTHLY Resulting Agency Comment Specimen source: Plasma Chey Navas MD LAB BLOOD ORDERABLES Final Re sult Performing Organization Address [facility] de Phone Number [facility] See order comments or contact performing lab Unknown, [place] * [facility] Results (03/02/2025) Only the most recent of3 resultswithin the time period is included. Pathologist [facility] eKt/V (Tattersall) 1.53 [facility] spKt/V (Daugirdas II) 1.80 [facility] eKdrt/V 1.50 [facility] eNPCR 0.77 [facility] eKt/V Gotch 1.50 Knowledg e Center WSTDKT/V 1.7 [facility] spKt/V Gotch 1.78 Know[facility] ge Center nPCR_HD 0.81 [facility] PCR 39.82 [facility] 03/02/2025 03/02/2025 [facility] Ordering Provider LAB BLOOD ORDERABLES Final Result [facility] Contact Performing lab Unknown, [place] from Last 3 Months Insurance Medicaid [place] ([id number]) Medicare Care Teams Supervisor Acoustical Tile Carpenters Relationship Specialty Start Date End Date Alexis Garcia MD [address] [place] [address] PCP - General Family Medicine 04/16/22
--- OUTSIDE RECORDS SUMMARY | 2025-03-21 19:21 | XMS_ITS | Encounter Summary ---
Author Organization [facility] Address [address] [place] [address] Care Team Providers Care Material Man Name Role Phone Shravan Jones DO Primary Care Provider [phone] Encounter Details Date Type Department Care Team (Latest Contact Info) Description 05/14/2003 Outpatient [facility] Oral and Maxillo Surgery[address] [place] [address] Jimmy Tineo, CLIVES NO ADDRESS ON FILE UNSPEC DENTAL CARIES (Primary Dx); TOOTH POSITION ANOMALY Social History Tobacco Use Types Packs/Day Years Used Date Smoking Tobacco: Never Assessed Comments Unknown Sex and Gender Information Value Date Recorded Sex Assigned at Not on file Legal Sex Female 4:38 AM SKIMMER REVERBERATORY Gender Identity Not on file Sexual Orientation Not on file documented as of this encounter Plan of Treatment Not on file documented as of this encounter Visit Diagnoses Diagnosis Unspecified dental caries- Primary 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
--- OUTSIDE RECORDS SUMMARY | 2025-03-21 19:21 | XMS_ITS | Encounter Summary ---
Author Organization [facility] Address [address] [place] [address] Phone Care Team Providers Care Nursing Education Specialist Name Role Phone Alexis Garcia MD Primary Care Provider [phone] Encounter Details Date Type Department Care Team (Late st Contact Info) Description 03/18/2025 Orders Only [facility] [address] [place] [address] Chey Navas MD [address] [place] [address] Social History Tobacco Use Types [...] Date/Time Associated Diagnosis Comments HEMATOLOGY Routine 03/18/2025 documented in this encounter Results * (ABNORMAL) HEMATOLOGY (03/18/2025) Hemoglobin 8.0(L) 12.0 - 16.0 g/dL [facility] Hemoglobin x 3 24(L) 36.0 - 48.0 % [facility] 03/18/2025 03/19/2025 8:4 3 AM CDT Narrative [facility] - 03/19/2025 Unless otherwise specified, test(s) performed at: [facility], [address] [place], [place] [id number] SEED PELLETER: Jose Luis France M.D. For any questions, please call customer service at FREQUENCY:OTHER Resulting Agency Comment Specimen source: Blood us Chey Navas MD LAB BLOOD ORDERABLES Final Re sult [facility] See order comments or contact performing lab Unknown, [place] documented in this encounter Visit Diagnoses Not on filedocumented in this encounter Care Teams Nursing Education Specialist Relationship Specialty Start Date End Date Alexis Garcia MD [address] [place] [address] PCP - General Family Medicine 04/16/22 documented as of this encounter
--- OUTSIDE RECORDS SUMMARY | 2025-03-21 19:21 | XMS_ITS | Encounter Summary ---
Author Organization [facility], [facility] Address [address] [place] [address] Phone Care Team Providers Care Networking Technician Name Role Phone Alexis Garcia MD Primary Care Provider [phone] Encounter Details Date Type Department Care Team (Late st Contact Info) Description 03/16/2025 Treatment [facility] [address] [place] [address] Chey Navas MD [address] [place] [address] End stage renal disease; Dependence [...] Dialysis Note - Chey Navas MD - 03/16/2025 12:00 AM CDT Patient: Donita Aguilar, 1985, 39y, F Dialysis Location: [facility] Attending Neurosurgery Research Director: Chey Navas Service Date: 03/16/2025 Service Provider: Chey Navas MD I met face to face with the patient today. OVERVIEW The patient presented with ESRD on dialysis Primary cause of renal failure: Type 1 diabetes mellitus with diabetic chronic kidney disease Comments: VSS, seen on HD machine Hx ESRD secondary to DM I. She did start dialysis about during a hospitalization in [place], [place]. Hx of meth us. She did move to to live with her mother and have more support. She continues to do well and work toward testing for transplant. Followed up with cardiology last week. Has had some chest pain they are attributing to muscle tightness and have her on pain medication and muscle relaxers. Medications and labs reviewed. LAST HOSPITALIZATION Discharge Diagnosis: I25.10 Atherosclerotic heart disease of [place] coronary artery without angina pectoris I10 Essential (primary) hypertension R07.9 Chest pain, unspecified E10.59 Type 1 diabetes mellitus with other circulatory complications Admission Date 02/22/25 Discharge Date 02/26/25 DIALYSIS PRESCRIPTION IHD 3x Week Start date: 03/13/25 Dialyzer: 160NRe Optiflux BFR: 350 DFR: Manual 800 Potassium: 2.0 Sodium: 138 EDW: 63.5 Duration: 3:30 Calcium: 2.5 Bicarb: 36 Rx updated on: 03/13/2025 TREATMENT ASSESSMENT Comments: Stable at goal range. BP Stand Pre 03/13/2025: 106/52 03/11/2025: 96/50 03/09/2025: 113/57 BP Sit Pre 03/13/2025: 115/69 03/11/2025: 93/61 03/09/2025: 132/73 BP Stand Post 03/13/2025: 130/75 03/11/2025: 131/70 03/09/2025: 158/80 BP Sit Post 03/13/2025: 139/76 03/11/2025: 122/67 03/09/2025: 163/85 Tx Duration 03/13/2025: 3:29 03/11/2025: 3:32 03/09/2025: 3:26 Missed Treatments 0 - last 30 days 1 - last 60 days 02/13 - recent FLUID ASSESSMENT Comments: Stable. Minimal UF needed. EDW (kg) 03/13/2025: 63.0 03/11/2025: 63.0 03/09/2025: 63.0 Weight Pre (kg) 03/13/2025: 66.7 03/11/2025: 66.0 03/09/2025: 65.6 Weight Post (kg) 03/13/2025: 63.5 03/11/2025: 65.0 03/09/2025: 64.8 PWV (kg) 03/13/2025: 0.5 03/11/2025: 2.0 03/09/2025: 1.8 UF Rate (mL/kg/hr) 03/13/2025: 14.5 03/11/2025: 4.4 03/09/2025: 3.6 ADEQUACY ASSESSMENT Comments: Stable trend spKt/V, URR 03/02/2025: 1.8, 80.0 01/28/2025: 1.79, 78.0 12/24/2024: 1.71, 76.0 ACCESS ASSESSMENT Access Type: AVGraft Access SubType: [...] monthly Vit B 12 injections. HGB, TSAT 03/11/2025: 7.6, - 03/04/2025: 9.1, - 03/02/2025: 8.9, 55.0 Ferritin 03/02/2025: 698.0 11/26/2024: 784.0 11/19/2024: 797.0 Mircera, IVP (mcg) 03/09/2025: 30 02/09/2025: 50 01/05/2025: 30 Iron Sucrose (Venofer) (mg) 03/09/2025: 50 03/02/2025: 50 02/09/2025: 50 BMM ASSESSMENT Comments: Increased calcitriol. Phos still a above goal. Ed to take binders and low phos diet PTH, Intact 03/02/2025: 804.0 01/28/2025: 797.0 11/26/2024: 702.0 Calcium, Phosphorus 03/02/2025: 7.9, 7.2 01/28/2025: 8.5, 7.6 12/24/2024: 7.9, 8.3 Vitamin D (Calcitriol) Oral (mcg) 03/13/2025: 0.75 03/11/2025: 0.75 03/09/2025: 0.75 NUTRITION ASSESSMENT Comments: nPCR did drop some. Albumin is about the same. Ed to eat protein in diet. Potassium stable Potassium, Albumin 03/02/2025: 4.5, 3.5 01/28/2025: 5.3, 3.5 12/31/2024: 5.3, - eNPCR 03/02/2025: 0.77 01/28/2025: 1.05 12/24/2024: 1.15 PHYSICAL EXAM Exam Performed. Vital Signs Reviewed. CV - Blood pressure noted. EXT - No edema. EXT - No ulcers. AVF/AVG Positive thrill/bruit. DIAGNOSIS Chief Complaint: N18.6 End stage renal disease Patient is stable. Patient data updated 03/16/2025 at 2:04 PM Signed By: Chey Navas MD on 03/16/2025 2:08:59 PM documented in this encounter Plan of Treatment Not on file documented as of this encounter Visit Diagnoses Diagnosis End stage renal disease Dependence on renal dialysis documented in this encounter Care Teams Networking Technician Relationship Specialty Start Date End Date Alexis Garcia MD [address] [place] [address] PCP - General Family Medicine 04/16/22 documented as of this encounter
--- OUTSIDE RECORDS SUMMARY | 2025-03-21 19:21 | XMS_ITS | Encounter Summary ---
Author Organization [facility] Address [address] [place] [address] Care Team Providers Care Multimedia Educational Specialist Name Role Phone Shravan Jones DO Primary Care Provider Encounter Details Date Type Department Care Team (Late st Contact Info) Description 01/02/2017 Lab Requisition [facility] Services [address] [place] [address] Izabela Diamond MD NO ADDRESS ON FILE Social History Tobacco Use Types Packs/Day Years Used Date Smoking Tobacco: Every Day Cigarettes Comments:pt lethargic Comments Unknown Sex and Gender Information Value Date Recorded Sex Assigned at Not on file 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 POTASSIUM 4.3 3.5 - 5.1 mmol/L 01/02/2017 6:07 AM CDT [facility] CHLORIDE 101 98 - 107 mmol/L 01/02/2017 6:07 AM T [facility] CO2 27 21 - 32 mmol/L 01/02/2017 6:07 AM T [facility] CALCIUM 9.7 8.4 - 10.1 mg/dL 01/02/2017 6:07 AM T [facility] BUN 16 7 - 17 mg/dL 01/02/2017 6:07 AM [facility] CREATININE 0.87 0.55 - 1.02 mg/dL 01/02/2017 6:07 AM T [facility] GLUCOSE 122(H) 74 - 106 mg/dL 01/02/2017 6:07 AM [facility] GFR >60 >=60 mL/min/1.7 3 sq meter 01/02/2017 6:07 AM T [facility] Comment: eGFR has not been validated [...] 3 sq meter 01/02/2017 6:07 AM CDT [facility] ANION GAP 10 4 - 30 mmol/L 01/02/2017 6:07 AM T [facility] Blood 01/02/2017 3:00 AM CDT 01/02/2017 5:35 AM CDT us Izabela Diamond MD CHEMISTRY ORDERABLES Final Res ult [facility] CLIA# [id number] [address] [place] [address] * (ABNORMAL) CBC WITH DIFFERENTIAL (01/02/2017 3:00 AM CDT) [facility] WBC 10.4 4.5 - 11.0 K/uL 01/02/2017 5:44 AM [facility] RBC 4.30 4.20 - 5.40 M/uL 01/02/2017 5:44 AM [facility] HEMOGLOBIN 10.4(L) 12.0 - 16.0 g/dL 01/02/2017 5:44 AM [facility] HEMATOCRIT 34.5(L) 36.0 - 46.0 % 01/02/2017 5:44 AM [facility] MCV 80.2(L) 84.0 - 103.0 fL 01/02/2017 5:44 AM [facility] MCH 24.2(L) 27.0 - 34.0 pg 01/02/2017 5:44 AM [facility] MCHC 30.1 30.0 - 35.0 g/dL 01/02/2017 5:44 AM [facility] RDW 17.4(H) 11.0 - 14.5 % 01/02/2017 5:44 AM [facility] RDW-STDEV 51.1 37.0 - 54.0 fL 01/02/2017 5:44 AM [facility] PLATELETS 764(H) 140 - 440 K/uL 01/02/2017 5:44 AM [facility] MPV 9.2 8.9 - 12.8 fL 01/02/2017 5:44 AM [facility] NEUTROPHILS 56 42 - 75 % 01/02/2017 5:44 AM [facility] LYMPHOCYTES 27 24 - 44 % 01/02/2017 5:44 AM [facility] MONOCYTES 8 2 - 10 % 01/02/2017 5:44 AM [facility] EOSINOPHILS 7 0 - 7 % 01/02/2017 5:44 AM [facility] BASOPHILS 1 0 - 1 % 01/02/2017 5:44 AM [facility] IMMATURE GRANULOCYTES 1 0 - 2 % 01/02/2017 5:44 AM CDT [facility] NEUTROPHIL ABSOLUTE 5.79 2.00 - 8.00 K/uL 01/02/2017 5:44 AM CDT [facility] LYMPHOCYTE ABSOLUTE 2.78 1.20 - 4.00 K/uL 01/02/2017 5:44 AM CDT [facility] MONOCYTE ABSOLUTE 0.85(H) 0.10 - 0.60 K/uL 01/02/2017 5:44 AM CDT [facility] EOSINOPHIL ABSOLUTE 0.76(H) 0.00 - 0.70 K/uL 01/02/2017 5:44 AM CDT [facility] BASOPHILS ABSOLUTE 0.10 0.00 - 0.20 K/uL 01/02/2017 5:44 AM CDT [facility] IMMATURE GRANULOCYTES ABSOLUTE 0.09 0.00 - 0.10 K/uL 01/02/2017 5:44 AM CDT [facility] Blood 01/02/2017 3:00 AM CDT 01/02/2017 5:35 AM CDT us Izabela Diamond MD HEMATOLOGY ORDERABLES Final Re sult [facility] CLIA# [id number] [facility] [place] [address] documented in this encounter Visit Diagnoses Not on filedocumented in this encounter Care Teams Multimedia Educational Specialist Relationship Specialty Start Date End Date Shravan Jones DO [address] [address] PCP - General Family Practice 12/04/16 documented as of this encounter
--- OUTSIDE RECORDS SUMMARY | 2025-03-21 19:21 | XMS_ITS | Encounter Summary ---
Author Organization [facility] Address [address] [place] [address] Care Team Providers Care Environmental Engineering Professor Name Role Phone Shravan Jones DO Primary Care Provider [phone] Reason for Visit * Reason Onset Date Comments Appointment Notification 11/05/2023 Encounter Details Date Type Department Care Team (Late st Contact Info) Description 11/05/2023 Telephone [facility] [address] [place] [address] Janell Beauchamp MD [address] [place] [address] Appointment Notification Social History Tobacco Use Types Packs/Day Years Used Date Smoking Tobacco: Every Day Comments:Quit smoking: pt le thargic Social Connections Answer Date Recorded In a typical week, how many times do you talk on the telephone with family, friends, or neighbors? Never 09/22/19 24 Frequency of Social Gatherings with Friends and Family Not on file 09/22/2023 Attends Spiritism Services Not on file 09/21 Active Member [...] on file Legal Sex Female 3:34 PM FAMILY LAWYER Gender Identity Not on file Sexual Orientation Not on file documented as of this encounter Miscellaneous Notes * Telephone Encounter - Patrica Barney - 11/05/2023 12:07 PM CDT Janell (Provider) MESSAGE Pt needs to cancel appt on 11/07 and would like to resched. For 11/25 as she has other appts in town that day. Please call pt to reschedule. [facility] Grapple Skidder Operator: Patrica Barney documented in this encounter Plan of Treatment Upcoming Encounters Date Type Department Care Team (Late st Contact Info) Description 05/19/2025 9:30 AM FAMILY LAWYER Office Visit [facility] [address] [address] Abel Menon DO [address] [phone] documented as of this encounter Visit Diagnoses Not on filedocumented in this encounter Additional Health Concerns Infection Onset Date Last Indicated Resolved Time R/O C. diff 07/06/2024 07/06/2024 07/06/2024 8:35 AM FAMILY LAWYER documented as of this encounter Care Teams Environmental Engineering Professor Relationship Specialty Start Date End Date Shravan Jones DO [address] [place] [phone] PCP - General Family Practice 12/04/16 documented as of this encounter
--- OUTSIDE RECORDS SUMMARY | 2025-03-21 19:21 | XMS_ITS | Encounter Summary ---
Author Organization [facility] Address [address] [place] [address] Care Team Providers Care Political Science Instructor Name Role Phone Shravan Jones DO Primary Care Provider [phone] Encounter Details Date Type Department Care Team (Late st Contact Info) Description 01/07/2017 Lab Requisition [facility] Laboratory Services [address] [place] [address] Izabela Diamond MD NO ADDRESS ON FILE Social History Tobacco Use Types Packs/Day Years Used Date Smoking Tobacco: Every Day Cigarettes Comments:pt lethargic Comments Unknown Sex and Gender Information Value Date Recorded Sex Assigned at Not on file 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 Blood 01/07/2017 2:23 AM CDT 01/07/2017 5:01 AM CDT Izabela Diamond MD CHEMISTRY ORDERABLES Final Res ult Performing Organization Address City/[facility]/ZIP Co de Phone Number [facility] CLIA# [id number] [address] [place] [address] * (ABNORMAL) C-REACTIVE PROTEIN (01/07/2017 2:23 AM CDT) CRP 16.6(H) 0.0 - 2.9 mg/L 01/07/2017 5:27 AM CDT [facility] Blood 01/07/2017 2:23 AM CDT 01/07/2017 5:01 AM CDT Izabela Diamond MD CHEMISTRY ORDERABLES Final Res ult Performing Organization Address [facility] Co de Phone Number [facility] CLIA# [id number] [address] [place] [address] * (ABNORMAL) BASIC METABOLIC PANEL (01/07/2017 2:23 AM CDT) SODIUM 139 136 - 145 mmol/L 01/07/2017 5:27 AM CDT [facility] A's Child [facility] POTASSIUM 4.1 3.5 - 5.1 mmol/L 01/07/2017 5:27 AM CDT [facility] A's Child [facility] CHLORIDE 104 98 - 107 mmol/L 01/07/2017 5:27 AM CDT [facility] A's Child [facility] CO2 26 21 - 32 mmol/L 01/07/2017 5:27 AM CDT [facility] A's Child [facility] CALCIUM 9.1 8.4 - 10.1 mg/dL 01/07/2017 5:27 AM CDT [facility] A's Child [facility] BUN 14 7 - 17 mg/dL 01/07/2017 5:27 AM CDT [facility] CREATININE 0.82 0.55 - 1.02 mg/dL 01/07/2017 5:27 AM T [facility] GLUCOSE 274(H) 74 - 106 mg/dL 01/07/2017 5:27 AM T [facility] GFR >60 >=60 mL/min/1.7 3 sq meter 01/07/2017 5:27 AM T [facility] Comment: [...] 3 sq meter 01/07/2017 5:27 AM T [facility] ANION GAP 9 4 - 30 mmol/L 01/07/2017 5:27 AM [facility] Blood 01/07/2017 2:23 AM CDT 01/07/2017 5:01 AM CDT us Izabela Diamond MD CHEMISTRY ORDERABLES Final Res ult [facility] CLIA# [id number] [address] [place] [address] * (ABNORMAL) CBC WITH DIFFERENTIAL (01/07/2017 2:23 AM CDT) WBC 9.3 4.5 - 11.0 K/uL 01/07/2017 5:27 AM CDT [facility] RBC 4.19(L) 4.20 - 5.40 M/uL 01/07/2017 5:27 AM CDT [facility] HEMOGLOBIN 10.3(L) 12.0 - 16.0 g/dL 01/07/2017 5:27 AM [facility] HEMATOCRIT 33.2(L) 36.0 - 46.0 % 01/07/2017 5:27 AM [facility] MCV 79.2(L) 84.0 - 103.0 fL 01/07/2017 5:27 AM [facility] MCH 24.6(L) 27.0 - 34.0 pg 01/07/2017 5:27 AM [facility] MCHC 31.0 30.0 - 35.0 g/dL 01/07/2017 5:27 AM [facility] RDW 17.2(H) 11.0 - 14.5 % 01/07/2017 5:27 AM [facility] RDW-STDEV 49.4 37.0 - 54.0 fL 01/07/2017 5:27 AM [facility] PLATELETS 545(H) 140 - 440 K/uL 01/07/2017 5:27 AM [facility] MPV 10.2 8.9 - 12.8 fL 01/07/2017 5:27 AM [facility] NEUTROPHILS 53 42 - 75 % 01/07/2017 5:27 AM [facility] LYMPHOCYTES 26 24 - 44 % 01/07/2017 5:27 AM [facility] MONOCYTES 9 2 - 10 % 01/07/2017 5:27 AM [facility] EOSINOPHILS 11(H) 0 - 7 % 01/07/2017 5:27 AM [facility] BASOPHILS 1 0 - 1 % 01/07/2017 5:27 AM [facility] IMMATURE GRANULOCYTES 0 0 - 2 % 01/07/2017 5:27 AM [facility] NEUTROPHIL ABSOLUTE 4.88 2.00 - 8.00 K/uL 01/07/2017 5:27 AM [facility] LYMPHOCYTE ABSOLUTE 2.45 1.20 - 4.00 K/uL 01/07/2017 5:27 AM [facility] MONOCYTE ABSOLUTE 0.79(H) 0.10 - 0.60 K/uL 01/07/2017 5:27 AM CDT [facility] EOSINOPHIL ABSOLUTE 1.01(H) 0.00 - 0.70 K/uL 01/07/2017 5:27 AM CDT [facility] BASOPHILS ABSOLUTE 0.11 0.00 - 0.20 K/uL 01/07/2017 5:27 AM CDT [facility] IMMATURE GRANULOCYTES ABSOLUTE 0.04 0.00 - 0.10 K/uL 01/07/2017 5:27 AM CDT [facility] Blood 01/07/2017 2:23 AM CDT 01/07/2017 5:01 AM CDT us Izabela Diamond MD HEMATOLOGY ORDERABLES Final Re sult [facility] CLIA# [id number] [address] [place] [address] documented in this encounter Visit Diagnoses Not on filedocumented in this encounter Care Teams Political Science Instructor Relationship Specialty Start Date End Date Shravan Jones DO [address] [address] PCP - General Family Practice 12/04/16 documented as of this encounter
--- OUTSIDE RECORDS SUMMARY | 2025-03-21 19:21 | XMS_ITS | Encounter Summary ---
Author Organization [facility] Address [address] [place] [address] Care Team Providers Care Roofing Tile Sorter Name Role Phone Shravan Jones DO Primary Care Provider [phone] Encounter Details Date Type Department Care Team (Late st Contact Info) Description 01/07/2017 Lab Requisition 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 Gender Identity Not on file Sexual Orientation [...] Detected Not Detected 01/07/2017 8:08 PM CDT [facility] Stool STOOL SPECIMEN / Unknown 01/07/2017 1:54 PM CDT 01/07/2017 6:53 PM CDT Narrative [facility] - 01/07/2017 8:08 PM [...] MICROBIOLOGY - GENERAL ORDERAB LES Final Result [facility] CLIA# [id number] [address] [place] [address] documented in this encounter Visit Diagnoses Not on filedocumented in this encounter Care Teams Roofing Tile Sorter Relationship Specialty Start Date End Date Shravan Jones DO [address] [address] PCP - General Family Practice 12/04/16 documented as of this encounter
--- OUTSIDE RECORDS SUMMARY | 2025-03-21 19:21 | XMS_ITS | Encounter Summary ---
Author Organization [facility] Address [address] [place] [address] Phone Care Team Providers Care Supervisor Paste Mixing Name Role Phone Alexis Garcia MD Primary Care Provider [phone] Encounter Details Date Type Department Care Team (Late st Contact Info) Description 04/16/2022 Orders Only [facility] [address] [place] [address] Chronic kidney disease, Stage IV [...] (severe) documented in this encounter Care Teams Supervisor Paste Mixing Relationship Specialty Start Date End Date Alexis Garcia MD [address] [place] [address] PCP - General Family Medicine 04/16/22 documented as of this encounter
--- OUTSIDE RECORDS SUMMARY | 2025-03-21 19:21 | XMS_ITS | Encounter Summary ---
Author Organization [facility] Address [address] [place] [address] Care Team Providers Care Pie Bottomer Name Role Phone Shravan Jones DO Primary Care Provider [phone] Encounter Details Date Type Department Care Team (Late st Contact Info) Description 01/07/2017 Lab Requisition [facility] Services [address] [place] [address] David Ortega MD [address] [place] [address] Social History Tobacco Use Types Packs/Day Years Used Date Smoking Tobacco: Every Day Cigarettes Comments:pt lethargic Comments Unknown Sex and Gender Information Value Date Recorded Sex Assigned at Not on file Legal Sex Female 4:38 AM TRANSFER MAN Gender Identity Not on file Sexual Orientation Not on file documented as of this encounter Plan of Treatment Not on file documented as of this encounter Visit Diagnoses Not on filedocumented in this encounter Care Teams Pie Bottomer Relationship Specialty Start Date End Date Shravan Jones DO [address] [phone] PCP - General Family Practice 12/04/16 documented as of this encounter
--- OUTSIDE RECORDS SUMMARY | 2025-03-21 19:21 | XMS_ITS | Encounter Summary ---
Author Organization [facility] Address [address] [place] [address] Care Team Providers Care Telephone Sales Agent Name Role Phone Shravan Jones DO Primary Care Provider Encounter Details Date Type Department Care Team (Late st Contact Info) Description 12/31/2016 Lab Requisition [facility] Laboratory Services [address] [place] [address] David Ortega MD [address] [place] [address] Social History Tobacco Use Types Packs/Day Years Used Date Smoking Tobacco: Every Day Cigarettes Comments:pt lethargic Comments Unknown Sex and Gender Information Value Date Recorded Sex Assigned at Not on file Legal Sex Female 4:38 AM RECREATION ACTIVITIES COORDINATOR Gender Identity Not on file Sexual [...] - 2.6 mg/dL 12/31/2016 5:52 AM T [facility] Blood 12/31/2016 2:26 AM CDT 12/31/2016 5:17 AM CDT [facility] - 12/31/2016 5:52 AM CDT Due to Music Leader update, MG+ reference range has changed from 1.8 - 2.4 mg/dL to the new reference range of 1.6 - 2.6 mg/dL. This will have limited patient impact. us David Ortega MD CHEMISTRY ORDERABLES Final Res ult [facility] CLIA# [id number] [address] [place] [address] * (ABNORMAL) COMPREHENSIVE METABOLIC PANEL (12/31/2016 2:26 AM CDT) SODIUM 138 136 - 145 mmol/L 12/31/2016 5:52 AM CDT [facility] POTASSIUM 4.7 3.5 - 5.1 mmol/L 12/31/2016 5:52 AM [facility] CHLORIDE 102 98 - 107 mmol/L 12/31/2016 5:52 AM T [facility] CO2 27 21 - 32 mmol/L 12/31/2016 5:52 AM T [facility] CALCIUM 9.1 8.4 - 10.1 mg/dL 12/31/2016 5:52 AM T [facility] BUN 17 7 - 17 mg/dL 12/31/2016 5:52 AM T [facility] CREATININE 0.87 0.55 - 1.02 mg/dL 12/31/2016 5:52 AM T [facility] GLUCOSE 214(H) 74 - 106 mg/dL 12/31/2016 5:52 AM T [facility] TOTAL PROTEIN 8.2 6.4 - 8.2 g/dL 12/31/2016 5:52 AM T [facility] ALBUMIN 1.9(L) 3.4 - 5.0 g/dL 12/31/2016 5:52 AM CDT [facility] BILIRUBIN TOTAL 0.2 0.2 - 1.0 mg/dL 12/31/2016 5:52 AM CDT [facility] ALKALINE PHOSPHATASE 95 25 - 100 U/L 12/31/2016 5:52 AM CDT [facility] AST 9(L) 15 - 37 U/L 12/31/2016 5:52 AM CDT [facility] ALT 14 13 - 61 U/L 12/31/2016 5:52 AM CDT [facility] GFR >60 >=60 mL/min/1.7 3 sq meter 12/31/2016 5:52 AM T [facility] Comment: eGFR has not been validated for [...] 3 sq meter 12/31/2016 5:52 AM CDT [facility] ANION GAP 9 4 - 30 mmol/L 12/31/2016 5:52 AM T [facility] Blood 12/31/2016 2:26 AM CDT 12/31/2016 5:17 AM CDT us David Ortega MD CHEMISTRY ORDERABLES Final Res ult [facility] CLIA# [id number] [address] [place] [address] * (ABNORMAL) CBC WITH DIFFERENTIAL (12/31/2016 2:26 AM CDT) WBC 13.7(H) 4.5 - 11.0 K/uL 12/31/2016 6:32 AM [facility] RBC 3.66(L) 4.20 - 5.40 M/uL 12/31/2016 6:32 AM [facility] HEMOGLOBIN 9.3(L) 12.0 - 16.0 g/dL 12/31/2016 6:32 AM [facility] [employer] [facility] HEMATOCRIT 29.6(L) 36.0 - 46.0 % 12/31/2016 6:32 AM [facility] [employer] [facility] MCV 80.9(L) 84.0 - 103.0 fL 12/31/2016 6:32 AM [facility] [employer] [facility] MCH 25.4(L) 27.0 - 34.0 pg 12/31/2016 6:32 AM [facility] MCHC 31.4 30.0 - 35.0 g/dL 12/31/2016 6:32 AM [facility] [employer] [facility] RDW 17.4(H) 11.0 - 14.5 % 12/31/2016 6:32 AM [facility] [employer] [facility] RDW-STDEV 52.1 37.0 - 54.0 fL 12/31/2016 6:32 AM [facility] [employer] [facility] PLATELETS 767(H) 140 - 440 K/uL 12/31/2016 6:32 AM [facility] [employer] [facility] MPV 9.0 8.9 - 12.8 fL 12/31/2016 6:32 AM [facility] [employer] [facility] NEUTROPHILS 68 42 - 75 % 12/31/2016 6:32 AM [facility] [employer] [facility] LYMPHOCYTES 17(L) 24 - 44 % 12/31/2016 6:32 AM [facility] [employer] [facility] MONOCYTES 8 2 - 10 % 12/31/2016 6:32 AM [facility] [employer] [facility] EOSINOPHILS 6 0 - 7 % 12/31/2016 6:32 AM [facility] [employer] [facility] BASOPHILS 0 0 - 1 % 12/31/2016 6:32 AM [facility] [employer] [facility] IMMATURE GRANULOCYTES 1 0 - 2 % 12/31/2016 6:32 AM CDT [facility] NEUTROPHIL ABSOLUTE 9.26(H) 2.00 - 8.00 K/uL 12/31/2016 6:32 AM CDT [facility] LYMPHOCYTE ABSOLUTE 2.28 1.20 - 4.00 K/uL 12/31/2016 6:32 AM CDT [facility] MONOCYTE ABSOLUTE 1.07(H) 0.10 - 0.60 K/uL 12/31/2016 6:32 AM CDT [facility] EOSINOPHIL ABSOLUTE 0.82(H) 0.00 - 0.70 K/uL 12/31/2016 6:32 AM CDT [facility] BASOPHILS ABSOLUTE 0.06 0.00 - 0.20 K/uL 12/31/2016 6:32 AM CDT [facility] IMMATURE GRANULOCYTES ABSOLUTE 0.17(H) 0.00 - 0.10 K/uL 12/31/2016 6:32 AM CDT [facility] Blood 12/31/2016 2:26 AM CDT 12/31/2016 5:17 AM CDT Narrative [facility] - 12/31/2016 6:32 AM CDT Smear reviewed us David Ortega MD HEMATOLOGY ORDERABLES Final Re sult [facility] CLIA# [id number] [address] [place] [address] documented in this encounter Visit Diagnoses Not on filedocumented in this encounter Care Teams Telephone Sales Agent Relationship Specialty Start Date End Date Shraavn Jones DO [address] [address] PCP - General Family Practice 12/04/16 documented as of this encounter
--- OUTSIDE RECORDS SUMMARY | 2025-03-21 19:21 | XMS_ITS | Encounter Summary ---
Author Organization [facility] Address [address] [place] [address] Care Team Providers Care Chrome Plater Helper Name Role Phone Shravan Jones DO Primary Care Provider [phone] Encounter Details Date Type Department Care Team (Late st Contact Info) Description 01/09/2017 Lab Requisition [facility] Laboratory Services [facility] [address] [place] [address] Izabela Diamond MD NO ADDRESS ON FILE Social History Tobacco Use Types Packs/Day Years Used Date Smoking Tobacco: Every Day Cigarettes Comments:pt lethargic Comments Unknown Sex and Gender Information Value Date Recorded Sex Assigned at Not on file 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 This will have limited patient impact. us Izabela Diamond MD CHEMISTRY ORDERABLES Final Res ult [facility] CLIA# [id number] [address] [place] [address] * (ABNORMAL) COMPREHENSIVE METABOLIC PANEL (01/09/2017 3:15 AM CDT) SODIUM 139 136 - 145 mmol/L 01/09/2017 5:53 AM CDT [facility] POTASSIUM 4.1 3.5 - 5.1 mmol/L 01/09/2017 5:53 AM T [facility] CHLORIDE 101 98 - 107 mmol/L 01/09/2017 5:53 AM T [facility] CO2 28 21 - 32 mmol/L 01/09/2017 5:53 AM T [facility] CALCIUM 8.8 8.4 - 10.1 mg/dL 01/09/2017 5:53 AM T [facility] BUN 18(H) 7 - 17 mg/dL 01/09/2017 5:53 AM T [facility] CREATININE 0.73 0.55 - 1.02 mg/dL 01/09/2017 5:53 AM T [facility] GLUCOSE 182(H) 74 - 106 mg/dL 01/09/2017 5:53 AM T [facility] TOTAL PROTEIN 8.4(H) 6.4 - 8.2 g/dL 01/09/2017 5:53 AM T [facility] ALBUMIN 2.5(L) 3.4 - 5.0 g/dL 01/09/2017 5:53 AM CDT [facility] BILIRUBIN TOTAL 0.2 0.2 - 1.0 mg/dL 01/09/2017 5:53 AM CDT [facility] ALKALINE PHOSPHATASE 99 25 - 100 U/L 01/09/2017 5:53 AM CDT [facility] AST 30 15 - 37 U/L 01/09/2017 5:53 AM CDT [facility] ALT 27 13 - 61 U/L 01/09/2017 5:53 AM CDT [facility] GFR >60 >=60 mL/min/1.7 3 sq meter 01/09/2017 5:53 AM T [facility] Comment: [...] 3 sq meter 01/09/2017 5:53 AM CDT [facility] ANION GAP 10 4 - 30 mmol/L 01/09/2017 5:53 AM T [facility] Blood 01/09/2017 3:15 AM CDT 01/09/2017 5:12 AM CDT us Izabela Diamond MD CHEMISTRY ORDERABLES Final Res ult [facility] CLIA# [id number] [address] [place] [address] * (ABNORMAL) CBC WITH DIFFERENTIAL (01/09/2017 3:15 AM CDT) WBC 8.7 4.5 - 11.0 K/uL 01/09/2017 5:20 AM [facility] RBC 4.63 4.20 - 5.40 M/uL 01/09/2017 5:20 AM [facility] HEMOGLOBIN 11.3(L) 12.0 - 16.0 g/dL 01/09/2017 5:20 AM [facility] HEMATOCRIT 36.8 36.0 - 46.0 % 01/09/2017 5:20 AM [facility] MCV 79.5(L) 84.0 - 103.0 fL 01/09/2017 5:20 AM [facility] MCH 24.4(L) 27.0 - 34.0 pg 01/09/2017 5:20 AM [facility] MCHC 30.7 30.0 - 35.0 g/dL 01/09/2017 5:20 AM [facility] RDW 17.3(H) 11.0 - 14.5 % 01/09/2017 5:20 AM [facility] RDW-STDEV 50.4 37.0 - 54.0 fL 01/09/2017 5:20 AM [facility] PLATELETS 463(H) 140 - 440 K/uL 01/09/2017 5:20 AM [facility] MPV 9.9 8.9 - 12.8 fL 01/09/2017 5:20 AM [facility] NEUTROPHILS 46 42 - 75 % 01/09/2017 5:20 AM [facility] LYMPHOCYTES 33 24 - 44 % 01/09/2017 5:20 AM [facility] MONOCYTES 8 2 - 10 % 01/09/2017 5:20 AM [facility] EOSINOPHILS 11(H) 0 - 7 % 01/09/2017 5:20 AM [facility] BASOPHILS 1 0 - 1 % 01/09/2017 5:20 AM [facility] IMMATURE GRANULOCYTES 0 0 - 2 % 01/09/2017 5:20 AM [facility] NEUTROPHIL ABSOLUTE 4.05 2.00 - 8.00 K/uL 01/09/2017 5:20 AM CDT [facility] LYMPHOCYTE ABSOLUTE 2.86 1.20 - 4.00 K/uL 01/09/2017 5:20 AM CDT [facility] MONOCYTE ABSOLUTE 0.73(H) 0.10 - 0.60 K/uL 01/09/2017 5:20 AM CDT [facility] EOSINOPHIL ABSOLUTE 0.95(H) 0.00 - 0.70 K/uL 01/09/2017 5:20 AM CDT [facility] BASOPHILS ABSOLUTE 0.11 0.00 - 0.20 K/uL 01/09/2017 5:20 AM CDT [facility] IMMATURE GRANULOCYTES ABSOLUTE 0.03 0.00 - 0.10 K/uL 01/09/2017 5:20 AM CDT [facility] Blood 01/09/2017 3:15 AM CDT 01/09/2017 5:12 AM CDT us Izabela Diamond MD HEMATOLOGY ORDERABLES Final Re sult [facility] CLIA# [id number] [address] [place] [address] * (ABNORMAL) HEMOGLOBIN A1C (01/09/2017 2:52 AM CDT) HEMOGLOBIN A1C 8.9(H) 4.0 - 6.0 % 01/09/2017 1:31 PM CDT [facility] EST. AVG GLUCOSE, A1C 209 mg/dL 01/09/2017 1:31 PM CDT [facility] Blood 01/09/2017 2:52 AM CDT 01/09/2017 6:53 AM CDT Narrative [facility] - 01/09/2017 1:31 PM CDT Test performed on [employer] instrumentation using HPLC methodology us Izabela Diamond MD CHEMISTRY ORDERABLES Final Res ult [facility] CLIA# [id number] [address] [place] [address] documented in this encounter Visit Diagnoses Not on filedocumented in this encounter Care Teams Chrome Plater Helper Relationship Specialty Start Date End Date Shravan Jones DO [address] [address] PCP - General Family Practice 12/04/16 documented as of this encounter
--- OUTSIDE RECORDS SUMMARY | 2025-03-21 19:21 | XMS_ITS | Encounter Summary ---
Author Organization [facility] Address [address] [place] [address] Care Team Providers Care Supervisor Cartography Name Role Phone Shravan Jones DO Primary Care Provider [phone] Encounter Details Date Type Department Care Team (Late st Contact Info) Description 12/12/2016 Nurse Only [facility] 4D Surgery Heart Lung [address] [place] [address] Stephenie Smith RN [address] [place] [address] Social History Tobacco Use Types Packs/Day Years Used Date Smoking Tobacco: Every Day Cigarettes Comments:pt lethargic Comments Unknown Sex and Gender Information Value Date Recorded Sex Assigned at Not on file 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
--- OUTSIDE RECORDS SUMMARY | 2025-03-21 19:21 | XMS_ITS | Data Portability ---
Author Organization Billie Skinner [facility] Address [address] [address] Assessment Encounter Date Assessment Date Assessment LastModified by Organization Details LastModified Time 09/16/2024 09/16/2024 Patient here for a hospital [...] doing okay now. Not available 11/27/2024 10:51:01 01/06/2025 01/06/2025 Patient here today for a follow-up from the ER. She has continued to have some spasms in her chest. Not available 01/06/2025 12:41:00 03/03/2025 03/03/2025 Patient here today for a hospital follow-up. She has been doing okay since coming home. She was seen at Dialysis yesterday. Not available 03/03/2025 13:05:27 Plan of Treatment Reminders Order Date Submit Date Provider Last Modified By Organization Details Last Modified Time Details Appointments HOSPITAL F/U 20 2024 10:00A SUZANNE LEIGH Not available Not available Not available Lab CBC 2024 025 [email or web address] [facility], [address], [address], 09/23/2024 09:57:42 Referral gynecolog ist referral 2024 025 [email or web address] [facility], [address] [place] [address], [address], 03/08/2025 18:20:51 hematolog ist referral 2024 025 [email or web address] Donn Huynh MD, [address] [place] [address], [address], 09/22/2024 13:25:16 Procedures None recorded. Surgeries None recorded. Imaging None recorded. Medication Orders tizanidin e 4 mg tablet 2024 025 [facility], [address], [place], [address], 01/23/2025 05:01:54 amlodipin e 5 mg tablet 2024 025 [facility], [address], [place], [address], 11/27/2024 11:31:03 losartan 50 mg tablet 2024 025 [facility] 15, [address], [place], [address], 01/06/2025 12:13:38 gabapenti n 300 mg capsule [address], [address], [place], [address], 03/03/2025 12:50:43 clonazepa m 1 mg tablet 2024 025 [facility] 15, [address], [place], [address], 01/06/2025 12:23:21 escitalop jasmin 20 mg tablet 2024 [facility] 15, [address], [place], [address], 10/05/2024 10:53:57 amoxicill in 875 mg tablet 2024 025 [facility] 15, [address], [place], [address], 10/05/2024 10:42:27 gabapenti n 300 mg capsule [address] 15, [address], [place], [address], 03/03/2025 12:50:43 Patient TargetsNo targets recorded. Patient Instructions Encounter Date Encounter Id Patient Instructions Last Modified By Organization Details Last Modified Time 09/16/2024 [id number] Call or return for questions or concerns. Not available 09/16/2024 11:14:35 10/05/2024 [id number] hospital discharge follow up* Not available 10/05/2024 10:53:51 Call or return for questions or concerns. Not available 10/05/2024 10:53:37 11/27/2024 [id number] Call or return for questions or concerns. Not available 11/27/2024 10:49:56 01/06/2025 [id number] Call or return for questions or concerns. Not available 01/06/2025 12:41:02 03/03/2025 [id number] hospital discharge follow up* Not available 03/03/2025 13:06:12 Call or return for questions or concerns. 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 for Referral Referring Physician: Elizabeth smalls, Family Medicine, Encounter Date: 09/16/2024 [employer]er Referral for Hi story of abnormal cervical Papanicolaou smear Referring Physician: Elizabeth Houser, Family Medicine, Encounter Date: 03/03/2025 Results Created Date Observation Date Name Description Value Unit Range Abnormal Flag Note LastModifiedBy Organization Detail LastModifiedTime 10/06/19 25 10/05/2024 hospi jenna disch arge follo w up* Records Reviewed Yes Not Available [facility] [address] [place], [address], 10/05/2024 10:32:40 10/06/19 25 10/05/2024 hospi jenna disch arge follo w up* Medications Reconciles Yes Not Available [facility] [address] [place], [address], 10/05/2024 10:32:40 03/03/20 25 03/03/2025 hospi jenna disch arge follo w up* Records Reviewed Yes Not Available [facility] ( [facility]) [address] [place], [address], 03/03/2025 12:56:45 03/03/20 25 03/03/2025 hospi jenna disch arge follo w up* Medications Reconciles Yes Not Available [facility] [address] [place], [address], 03/03/2025 12:56:45 09/22/19 25 09/21/2024 MAMMO , diagn ostic , digit al, unila teral No observ ation record ed. [facility] [address] [place], [address], 10/05/2024 10:33:01 09/22/19 25 09/21/2024 MAMMO , diagn ostic , digit al, unila teral No observ ation record ed. [facility] [address] [place], [address], 10/05/2024 10:33:01 Result Notes None recorded. Problems Name Problem SNOMED Code Status Onset Date Resolution Date Notes Provider Name and Address Organization Details Recorded Time Hypoxemi c respirat ory failure 99700681617 287785 Active XIMENA coles [facility] 4 23:40:08 Pulmonar y edema 13762096 [facility] 23:38:38 Myocardi al infarcti on 67810499 Active XIMENA KEATING [facility] 4 23:39:29 Alkaline phosphat ase above referenc e range 904463401 Active XIMENA KEATING [facility] 4 23:42:35 Refracto ry migraine without aura 759630583 Active XIMENA coles [facility] 4 23:38:28 Type 1 diabetes mellitus 16330502 Active ELIZABETH HOUSER, [facility] [address] [place], [address], [facility] 5 12:32:15 Metaboli c acidosis 93272810 Active XIMENA KEATING [facility] 4 23:39:34 Pulmonar y hyperten catherine 32123102 [facility] 4 23:38:32 Long-ter m current use of insulin 949633863 Active XIMENA RISHABH coles [facility] 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 4 23:39:00 Sepsis 89250251 Active ELIZABETH HOUSER, [address], [address], [facility] 5 12:32:15 Coronary atherosc lerosis 499470594 Active ELIZABETH HOUSER, [address], [address], [facility] 5 12:30:34 Chest wall pain 899730077 Completed 09/16/2024 ELIZABETH HOUSER, [address], [address], [facility] 5 11:17:49 Atypical chest pain 436218328 Completed 09/16/2024 ELIZABETH HOUSER, [address], [address], [facility] 5 11:17:49 Myofasci al low back pain 9686992548 Completed 09/16/2024 ELIZABETH HOUSER, [address], [address], [facility] 5 11:17:49 Acute kidney injury 91428207 Completed 09/16/2024 ELIZABETH HOUSER, [address], [address], [facility] 11:17:49 Backache 187112864 Completed 09/16/2024 ELIZABETH HOUSER, [address], [address], [facility] 11:17:49 Anterior chest wall pain 483259635 Completed 09/16/2024 ELIZABETH HOUSER, [address], [address], [facility] 11:17:49 Serum creatini ne above referenc e range 250181866 Completed 09/16/2024 ELIZABETH HOUSER, [address], [address], [facility] 11:17:49 Nausea and vomiting 67579899 Completed 09/16/2024 ELIZABETH HOUSER, [address], [address], [facility] 11:17:49 Fall Completed 09/16/2024 ELIZABETH HOUSER, [address], [address], [facility] 11:17:49 Acute exacerba tion of chronic obstruct hung pulmonar y disease 936051672 Active ELIZABETH HOUSER, [address], [address], [facility] 11:18:50 Abdomina l pain 74801852 Completed 09/16/2024 ELIZABETH HOUSER, [address], [address], [facility] 11:17:49 Pleuriti c pain 8242425 Completed 09/16/2024 ELIZABETH HOUSER, [address], [address], [facility] 11:17:49 Pneumoni a 318033163 Completed 09/16/2024 ELIZABETH HOUSER, [address], [address], [facility] 11:17:49 Acute hypergly cemia 727975020 Completed 09/16/2024 ELIZABETH HOUSER, [address], [address], [facility] 11:17:49 Flank pain 296452284 Completed 09/16/2024 ELIZABETH HOUSER, [address], [address], [facility] 11:17:50 Headache 29491668 Completed 09/16/2024 ELIZABETH HOUSER, [address], [address], [facility] 11:17:50 Drug abuse 84648965 Completed 09/16/2024 ELIZABETH HOUSER, [address], [address], [facility] 11:17:50 Dyspnea 287076278 Completed 09/16/2024 ELIZABETH HOUSER, [address], [address], [facility] 11:17:50 Left sided abdomina l pain 260064348 Completed 09/16/2024 ELIZABETH HOUSER, [address], [address], [facility] 11:17:50 Rib pain 731396812 Completed 09/16/2024 ELIZABETH GIBBONSTES, [address], [address], [facility] 11:17:50 Chest pain 88584221 Completed 09/16/2024 ELIZABETH HOUSER, [address], [address], [facility] 11:17:50 Hypoglyc emia 602405867 Completed 09/16/2024 ELIZABETH GIBBONSTES, [address], [address], [facility] 11:17:50 Hyperosm olar non-keto tic state due to diabetes mellitus 085472476 Completed 09/16/2024 ELIZABETH HOUSER, [address], [address], [facility] 11:17:50 Dehydrat ion 39850514 Completed 09/16/2024 ELIZABETH HOUSER, [address], [address], [facility] 11:17:50 Blood in urine 42609350 Completed 09/16/2024 ELIZABETH HOUSER, [address], [address], [facility] 11:17:50 Enzyme level - finding 942182873 Completed 09/16/2024 ELIZABETH HOUSER, [address], [address], [facility] 11:17:50 Hypergly cemia due to type 1 diabetes mellitus 79779080029 9101 Completed 09/16/2024 ELIZABETH HOUSER, [address], [address], [facility], Billie 11:17:50 Hyperten sive disorder 72066486 Completed 09/16/2024 ELIZABETH HOUSER, [address], [address] [place] [address] 5, [facility], KaelynCJacobo 11:17:50 Communit y acquired pneumoni a 162619120 Completed 09/16/2024 ELIZABETH HOUSER, [address], [address], [facility], Billie 11:17:50 Hypother speedy 081474909 Completed 09/16/2024 ELIZABETH HOUSER, [address], [address], [facility], KaelynCJacobo 11:17:50 Hypoxia 719397067 Completed 09/16/2024 ELIZABETH HOUSER, [address], [address], [facility], Billie 11:17:50 Tension- type headache 206642129 Completed 09/16/2024 ELIZABETH HOUSER, [address], [address], [facility], KaelynCJacobo 11:17:50 Cardiac enzyme or marker above referenc e range 890573799 Completed 09/16/2024 ELIZABETH HOUSER, [address], [address], [facility], KaelynCJacobo 11:17:50 Respirat ory failure 911791960 Completed 09/16/2024 ELIZABETH HOUSER, [address], [address], [facility] 11:17:50 Acute lymphade nitis 95395864 Completed 09/16/2024 ELIZABETH HOUSER, [address], [address] [place] [address] 5, [facility] 11:17:50 Vomiting 915174252 Completed 09/16/2024 ELIZABETH HOUSER, [address], [address] [place] [address] 5, [facility] 11:17:50 Chronic kidney disease stage 3 225041566 Completed 09/16/2024 ELIZABETH HOUSER, [address], [address], [facility] 11:17:50 Gastriti s 2916516 Completed 09/16/2024 ELIZABETH HOUSER, [address], [address], [facility] 11:17:50 Preinfar ction syndrome 8837466 Completed 09/16/2024 ELIZABETH HOUSER, [address], [address], [facility] 11:17:51 Nephroti c syndrome 91822463 Completed 09/16/2024 ELIZABETH HOUSER, [address] [address], [facility] 11:17:51 Wheezing 52464461 Completed 09/16/2024 ELIZABETH HOUSER, [address], [address], [facility] 11:17:51 Diarrhea 20302511 Completed 09/16/2024 ELIZABETH HOUSER, [address], [address], [facility] 11:17:51 Colitis 56626927 Completed 09/16/2024 ELIZABETH HOUSER, [address], [address], [facility] 11:17:51 Acute cystitis 26952271 Completed 09/16/2024 ELIZABETH HOUSER, [address], [address], [facility] 11:17:51 Urinary tract infectio us disease 52678964 Completed 09/16/2024 ELIZABETH HOUSER, [address], [address], [facility] 11:17:51 Symptoma tic congesti ve heart failure 467672659 Completed 09/16/2024 ELIZABETH HOUSER, [address], [address], [facility] 11:17:51 Intracta ble nausea and vomiting 606988436 Completed 09/16/2024 ELIZABETH HOUSER, [address], [address], [facility] 11:17:51 Chronic kidney disease 233135476 Completed 09/16/2024 ELIZABETH HOUSER, [address], [address], [facility] 5 11:17:51 Diabetes mellitus 90454788 Completed 09/16/2024 ELIZABETH CORRINA, [address], [address], [facility] 5 11:17:51 Hypergly cemia 50365733 Completed 09/16/2024 ELIZABETH CORRINA, [address], [address], [facility] 5 11:17:51 Neck pain 69212833 Completed 09/16/2024 ELIZABETH HOUSER, [address], [address], [facility] 5 11:17:51 COVID-19 151038537 Completed 09/16/2024 ELIZABETH CORRINA, [address], [address], [facility] 5 11:17:51 Hyponatr emia 39773579 Completed 09/16/2024 ELIZABETH CORRINA, [address], [address], [facility] 5 11:17:51 Tobacco dependen ce syndrome 74918718 Completed 09/16/2024 ELIZABETH CORRINA, [address], [address], [facility] 5 11:17:51 Lactic acidosis 39878271 Completed 09/16/2024 ELIZABETH CORRINA, [address], [address], [facility] 5 11:17:51 Stable angina 740904734 Completed 09/16/2024 ELIZABETH HOUSER, [address], [address] [place] [address] 5, [facility] 5 11:17:49 Non-card iac chest pain 810215041 Completed 09/16/2024 ELIZABETH HOUSER, [address], [address] [place] [address] 5, [facility] 5 11:17:50 Pain of knee region 7487636072 Active ELIZABETH HOUSER, [address], [address] [place] [address] 5, [facility] 5 12:30:32 Chest wall pain 235581684 Active ELIZABETH HOUSER, [address], [address] [place] [address] 5, [facility] 5 12:30:32 Atypical chest pain 198208891 Active ELIZABETH HOUSER, [address], [address] [place] [address] 5, [facility] 5 12:32:14 Pain in lower limb 08058157 Active ELIZABETH HOUSER, [address], [address] [place] [address] 5, [facility] 5 12:30:32 Blurring of visual image 357014327 Active ELIZABETH HOUSER, [address], [address] [place] [address] 5, [facility] 5 12:30:32 Myofasci al low back pain 9960591767 Active ELIZABETH HOUSER, [address], [address] [place] [address], [facility] 5 12:30:32 Retroper itoneal lymphade nopathy 578478273 Rachael HOUSER, [address], [address] [place] [address] 5, [facility] 5 12:30:32 Hyperkal emia 25334026 Rachael HOUSER, [address], [address] [place] [address] 5, [facility] 5 12:30:32 Acute kidney injury 63402913 Rachael HOUSER, [place] [address], [facility] 5 12:32:14 Constipa tion 85757285 Rachael HOUSER, [address], [address] [place] [address], [facility] 5 12:30:32 Backache 107394787 Rachael HOUSER, [address], [address] [place] [address], [facility] 5 12:32:14 Anterior chest wall pain 831394799 Rachael HOUSER, [address], [address] [place] [address], [facility] 5 12:30:32 Serum creatini ne above referenc e range 883049240 Rachael HOUSER, [place] [address], [facility] 5 12:30:32 Nausea and vomiting 31918665 Rachael HOUSER, [place] [address], [facility] 5 12:30:32 Fall Active ELIZABETH HOUSER, [address], [address], [facility] 5 12:32:14 Complica tion of dialysis 75210475 Active ELIZABETH HOUSER, [address], [address] [place] [address] 5, [facility] 5 12:30:33 Abdomina l pain 08888998 Active ELIZABETH HOUSER, [address], [address] [place] [address] 5, [facility] 5 12:32:14 Hypervol emia 35250671 Rachael HOUSER, [address], [address] [place] [address] 5, [facility] 5 12:30:33 Pleuriti c pain 7206360 Rachael HOUSER, [address], [address] [place] [address] 5, [facility] 5 12:30:33 Pneumoni a 812763219 Rachael HOUSER, [address], [address] [place] [address] 5, [facility] 5 12:32:14 Stable angina 730326744 Active ELIZABETH HOUSER, [place] [address], [facility] 12:30:33 Acute hypergly cemia 435090611 Rachael HOUSER, [place] [address], [facility] 5 12:30:33 Flank pain 454710726 Rachael HOUSER, [address], [address] [place] [address] 5, [facility] 5 12:30:33 Headache 74745247 Rachael HOUSER, [address], [address] [place] [address] 5, [facility] 5 12:30:33 Drug abuse 59370714 Rachael HOUSER, [address], [address] [place] [address] 5, [facility] 5 12:30:33 Dyspnea 149084383 Rachael HOUSER, [address], [address] [place] [address] 5, [facility] 5 12:30:33 Non-card iac chest pain 155415249 Rachael HOUSER, [address], [address] [place] [address] 5, [facility] 5 12:30:33 History of heart disorder 482828949 Rachael HOUSER, [address], [address] [place] [address] 5, [facility] 5 12:30:33 Left sided abdomina l pain 834249203 Rachael HOUSER, [address], [address] [place] [address] 5, [facility] 5 12:30:33 Rib pain 378330760 Rachael HOUSER, [address], [address] [place] [address], [facility] 12:30:33 Chest pain 29805177 Rachael HOUSER, [address], [address] [place] [address], [facility] 12:32:14 Hypoglyc emia 539900762 Rachael HOUSER, [address], [address] [place] [address], [facility] 12:32:14 Hyperosm olar non-keto tic state due to diabetes mellitus 644383391 Rachael HOUSER, [place] [address], [facility] 12:30:33 Dehydrat ion 18820173 Rachael HOUSER, [place] [address], [facility] 12:30:33 Blood in urine 51576920 Rachael HOUSER, [place] [address], [facility] 12:30:33 Enzyme level - finding 909223563 Rachael HOUSER, [address], [address] [place] [address], [facility] 12:30:33 Hypergly cemia due to type 1 diabetes mellitus 61229713560 9101 Rachael HOUSER, [place] [address], [facility] 12:30:33 Hyperten sive disorder 48667484 Rachael HOUSER, [place] [address], [facility] 12:32:14 Communit y acquired pneumoni a 921461688 Rachael HOUSER, [address], [address], [facility] 12:30:33 Hypother speedy 262850946 Rachael HOUSER, [address], [address] , [facility] 12:30:33 Hypoxia 737539449 Rachael HOUSER, [address], [address] , [facility] 12:30:34 Tension- type headache 296420794 Rcahael HOUSER, [address], [address] , [facility] 5 12:30:34 Cardiac enzyme or marker above referenc e range 763509725 Rachael HOUSER, [address], [address] , [facility] 5 12:30:34 Respirat ory failure [id number] Rachael HOUSER, [address], [address] , [facility] 5 12:30:34 Acute lymphade nitis 99208211 Rachael HOUSER, [address] , [facility] 12:30:34 Vomiting 431475125 Rachael HOUSER, [place] [address], [facility] 5 12:30:34 Chronic kidney disease stage 3 [id number] Rachael HOUSER, [address], [address] [place] [address] 5, [facility] 5 12:30:34 Hyperten sive urgency 269727388 Active ELIZABETH HOUSER, [address], [address] [place] [address] 5, [facility] 5 12:30:34 Gastriti s [id number] Rachael HOUSER, [address], [address] [place] [address], [facility] 5 12:30:34 Preinfar ction syndrome [id number] Rachael HOUSER, [address], [address] [place] [address], [facility] 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 5 12:30:34 Nephroti c syndrome [id number] Rachael HOUSER, [address], [address] [place] [address], [facility] 5 12:30:34 Wheezing 39493668 Rachael HOUSER, [address], [address] [place] [address] 5, [facility] 5 12:30:34 Diarrhea [id number] Rachael HOUSER, [address], [address] [place] [address], [facility] 5 12:30:34 Colitis [id number] Rachael HOUSER, [address], [address] [place] [address] 5, [facility] 5 12:30:34 Acute cystitis [id number] Rachael HOUSER, [address], [address] [place] [address] 5, [facility] 5 12:32:15 Urinary tract infectio us disease [id number] Rachael HOUSER, [address], [address] [place] [address] 5, [facility] 5 12:32:15 Symptoma tic congesti ve heart failure [id number] Rachael HOUSER, [address], [address] [place] [address], [facility] 5 12:30:34 Intracta ble nausea and vomiting [id number] Rachael HOUSER, [address], [address] [place] [address] 5, [facility] 5 12:32:15 Malignan t hyperten catherine [id number] Rachael HOUSER, [address], [address] [place] [address] 5, [facility] 5 12:30:34 Chronic kidney disease [id number] Rachael HOUSER, [address], [address] [place] [address], [facility] 5 12:32:15 Gastropa resis due to diabetes mellitus [id number] Rachael HOUSER[address], [address] [place] [address] 5, [facility] 5 12:32:15 Intussus ception of small intestin e [id number] Rachael HOUSER, [address], [address] [place] [address] 5, [facility] 5 12:30:35 Diabetes mellitus 67929599 Active ELIZABETH HOUSER, [address], [address] [place] [address] 5, [facility] 5 12:32:15 Hypergly cemia [id number] Rachael HOUSER, [address], [address] [place] [address] 5, [facility] 5 12:32:15 Neck pain [id number] Rachael HOUSER, [address], [address] [place] [address] 5, [facility] 5 12:30:35 COVID-19 [id number] Rachael HOUSER, [address], [address] [place] [address] 5, [facility] 5 12:30:35 Hyponatr emia [id number] Rachael HOUSER, [address], [address] [place] [address] 5, [facility] 5 12:30:35 Tobacco dependen ce syndrome [id number] Rachael HOUSER, [address], [address] [place] [address] 5, [facility] 5 12:30:35 Lactic acidosis [id number] Rachael HOUSER, [address] [place], [address], [facility] 5 12:30:35 Chronic respirat ory failure 99848802 Active 2023 XIMENA coles [facility] 4 13:05:55 Neurogen ic urinary bladder 196032625 Active 2023 XIMENA coles [facility] 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 4 13:06:31 Chronic kidney disease stage 5 748930048 Active 2023 XIMENA coles [facility] 4 13:06:41 Acute non-ST segment elevatio n myocardi al infarcti on 656077036 Active 2023 XIMENA coles [facility] 4 13:06:53 Neuropat hy due to diabetes mellitus 045433174 Active 2023 XIMENA coles [facility] 4 13:07:12 Chronic pulmonar y edema 93975594 Active 2023 XIMENA coles [facility] 4 13:07:22 Pyelonep hritis 08832653 Active 2023 ELIZABETH HOUSER, [facility] [address] [place], [address], [place] [facility] 5 12:32:14 Coronary arterios clerosis 48885082 Active 2023 ELIZABETH HOUSER, [facility] [address] [place], [address], [facility] 5 12:32:15 Chronic obstruct hung pulmonar y disease 34319856 Active 2023 XIMENA coles [facility] 4 13:08:00 Esseliud l hyperten catherine 05586268 Active 2023 XIMENA coles [facility] 4 13:08:11 Uncontro lled type 1 diabetes mellitus 840623308 Active 2023 dx in 2008 XIMENA coles [facility] 4 12:33:15 Noncompl iance with treatmen t 7002877 Active 2023 XIMENA coles [facility] 4 13:08:41 Noncompl iance with medicati on regimen 380134209 Active 2023 XIMENA coles [facility] 4 13:08:51 History of pancreat itis 60884062562 107 Active 2023 XIMENA coles [facility] 4 13:09:14 Dependen ce on renal dialysis 372936770 Active 2023 XIMENA coles [facility] 4 13:09:38 History of sepsis 21665764906 9100 Active 2023 XIMENA coles [facility] 4 13:09:47 Gastropa resis due to type 1 diabetes mellitus 974013436 Active 2023 XIMENA coles [facility] 4 13:10:04 Celiac disease 082916251 Active 2023 XIMENA coles [facility] 4 13:10:14 Stented artery 848399538 Active 2023 XIMENA coles [facility] 4 13:11:26 End-stag e renal disease 98321429 Active 2023 ELIZABETH HOUSER, [address], [address], [facility] 5 12:32:15 Recurren t urinary tract infectio n 529629909 Active 2023 XIMENA coles [facility] 4 12:26:12 Chiari malforma tion 102254087 Active 2023 XIMENA coles [facility] 4 12:26:50 Steatoti c liver disease 780779143 Active 2023 XIMENA coles [facility] 4 12:27:02 Anemia 283479326 Active 2023 XIMENA coles [facility] 4 12:27:22 Female pelvic inflamma tory disease 710010388 Active 2023 XIMENA coles [facility] 4 12:28:16 Mixed anxiety and depressi ve disorder 463154144 Active 2023 XIMENA coles [facility] 4 12:28:28 Pancreat itis 23615063 Active 2023 XIMENA coles [facility] 4 12:28:40 Diabetic ketoacid osis 504191906 Active 2023 recurren t XIMENA coles [facility] 4 12:28:57 Migraine 79304619 Active 2023 ELIZABETH HOUSER, [address], [address], [facility] 5 12:32:14 Cardiome enoch 3022369 Active 2023 XIMENA coles [facility] 4 12:30:17 Edema 621903739 Active 2023 XIMENA coles [facility] 4 23:45:39 Edema due to fluid overload 911294719 Active 2023 XIMENA coles [facility] 4 23:45:54 End stage renal failure on dialysis 703228682 Active 2023 XIMENA coles [facility] 5 15:31:59 Esophagi tis 69815241 Active 2024 XIMENA coles [facility] 5 18:23:17 Notes:Some problems listed i n Documents: #[id number], #[id number], #[id number], #[id number] could not be added to this patient's chart. Please review these documents and add these problems to the patient's chart manually as needed. Problem Notes None recorded. Procedures Surgical History Date Name Laterality Status Provider Name and Address Organization Details Recorded Time 12/27/19 CT of chest completed XIMENA KEATING [facility] 12/27/2024 14:20:38 12/26/19 25 plain X-ray of chest completed [facility] 12/27/2024 14:13:55 11/11/19 25 plain X-ray of cervical spine completed [facility] 11/11/2024 12:44:02 10/01/19 25 angiography completed [facility] 10/01/2024 18:38:18 09/27/19 25 plain X-ray of chest completed [facility], LJacoboLJacoboC[facility]obo 09/27/2024 18:18:09 09/27/19 25 echocardiography completed [facility], LJacoboLJacoboCJacobo 10/01/2024 18:33:00 09/22/19 25 ultrasonography of right breast completed [facility] 09/21/2024 13:39:24 09/22/19 25 mammography completed [facility] 09/21/2024 13:40:36 09/11/[address] of abdomen completed [facility] 09/13/2024 14:56:32 09/10/19 25 angiography of coronary artery completed [facility] 09/13/2024 14:50:21 09/09/19 25 echocardiography completed [facility] 09/13/2024 14:54:55 09/08/19 25 plain X-ray of chest completed [facility] 09/13/2024 14:57:51 08/24/[address] of chest completed [facility], LJacoboLJacoboCJacobo 08/24/2024 12:28:02 04/28/20 24 plain X-ray of chest completed [facility] 04/30/2024 11:08:42 03/31/20 24 plain X-ray of chest completed [facility] L[facility]oL.C. 04/01/2024 14:05:05 03/27/20 24 percutaneous transluminal angioplasty of coronary artery using imaging guidance with contrast completed [facility] 10/05/2024 10:23:19 02/28/20 24 radiographic procedure on chest and/or abdomen completed [facility], DonteLJacoboCJacobo 03/04/2024 15:02:31 02/28/[address] of abdomen completed [facility], DonteLJacoboCJacobo 03/04/2024 15:03:26 01/19/20 24 diagnostic radiography of abdomen completed [facility], DonteLJacoboCJacobo 01/21/2024 17:26:25 01/06/20 24 plain X-ray of chest completed [facility], LJacoboL.CJacobo 01/07/2024 15:42:42 12/27/19 24 plain X-ray of chest completed [facility] L[facility]oL.C. 12/29/2023 23:23:06 12/27/[address] of chest, abdomen and pelvis completed [facility], LJacoboL.CJacobo 12/29/2023 23:32:58 12/24/19 24 plain X-ray of chest completed [facility] L[facility]oL.C. 12/29/2023 23:56:29 12/20/[address] of chest completed [facility] L[facility].C. 12/21/2023 12:33:52 12/20/19 24 plain X-ray of chest completed [facility], DonteLJacoboCJacobo 12/21/2023 12:34:44 12/09/19 24 plain X-ray of chest completed [facility] 12/12/2023 10:16:37 12/05/19 24 plain X-ray of chest completed [facility] 12/06/2023 13:24:46 11/28/19 24 cardiac catheterization completed [facility] 12/06/2023 13:11:07 11/28/19 24 percutaneous transluminal angioplasty of coronary artery using imaging guidance with contrast completed [facility] 10/05/2024 10:22:55 11/27/19 24 plain X-ray of chest completed [facility] 11/28/2023 10:19:35 10/24/19 24 percutaneous transluminal angioplasty of coronary artery using imaging guidance with contrast completed [facility] 10/05/2024 10:22:32 10/16/19 24 percutaneous transluminal angioplasty of coronary artery using imaging guidance with contrast completed [facility] 10/05/2024 10:22:12 10/07/19 24 plain X-ray of chest completed [facility] 10/08/2023 17:52:40 09/20/19 24 echocardiography completed [facility] 09/26/2023 12:48:56 lobectomy of lung completed [facility] 10/10/2023 12:32:47 amputation completed [facility] 08/24/2024 12:24:04 cholecystectomy completed [facility] 09/13/2024 14:49:22 Imaging Results None recorded. Procedure Notes None recorded. Medical Equipment None Reported. Allergies Allergen ID Allergen Name Allergen Category Reaction Reaction Severity Criticality Documentation Date Start Date Code Code System Note Provider Name and Address Organization Details Recorded Time 36466 acetamino phen medicatio n abdominal pain moderate low 01/19/20232021 161 RxNorm GI upset /into leran ce Anh Massey [facility], [facility], Billie 4 07:57:42 04408 acetamino phen medicatio n Not available Not available Not available 02/21/20242023 161 RxNorm ELIZABETH HOUSER, [facility] [address] [place], [address], [facility], Billie 5 12:32:03 Medications Name Sig Start Date Stop Date Status Note LastModified by Organization Details LastModified Time losartan 50 mg tablet TAKE 2 TABLETS BY MOUTH ONCE DAILY FOR BLOOD PRESSURE 01/06 completed Not Available Not Available Not Available cyclobenz aprine 10 mg tablet TAKE [...] IS STILL OVER 160 AFTER 1 HOUR. 01/06 completed Not Available Not Available Not Available carvedilo l 6.25 mg tablet TAKE [...] Not Available Not Available No t Available tizanidin e 4 mg tablet Take 1 tablet every 6 hours by oral route for 10 days, for muscle spasms. 01/23 completed stop cycloben zaprine Not Available Not Available Not Available lisinopri l 20 mg tablet TAKE 1 TABLET BY MOUTH AT BEDTIME ONCE DAILY 05/01 completed Not Available Not Available Not Available dexametha sone 6 mg tablet TAKE 1 TABLET BY MOUTH ONCE DAILY FOR 6 DAYS 10/09 completed Not Available Not Available Not Available clonazepa m 1 mg tablet TAKE 1 TABLET BY MOUTH NEEDED FOR ANXIETY PRIOR TO MRI 01/06 completed Not Available Not Available Not Available Lantus U-100 Insulin 100 unit/mL subcutane [...] 1 TABLET BY MOUTH ONCE DAILY FOR CAD active Not Available Not Available [...] 1 CAPSULE BY MOUTH THREE TIMES DAILY 03/03 completed They wanted her to decrease to 100mg TID followin [facility], 02/27 and 02/28 Not Available Not Available Not Available bumetanid e 1 mg tablet TAKE 1 TABLET BY MOUTH ONCE DAILY ON NON-DIAL YSIS DAYS active Not Available Not Available No t Available folic acid 1 mg tablet TAKE 1 TABLET BY [...] BY MOUTH TWICE DAILY FOR 3 DAYS 01/06 completed Not Available Not Available Not Available [...] times per day 10/09 completed VO CH/jl; 56432; Recorded 05/14/20 19 10:02AM by Leydi Jessica [...] Updated DateTime 5 152.4 cm 26.8 kg/m2 83583.1 5 g 99 % 99 % 64 /min 18 /min 144/90 mm[Hg] XIMENA KEATING [facility] 5 09:43:53 Date Recorded Body height Body mass index (BMI) Body weight Heart rate Oxygen saturation Oxygen saturation in Arterial blood by Pulse oximetry Body temperature Systolic And Diastolic Provider Name and Address Organization Details Last Updated DateTime 5 152.4 cm 26.6 kg/m2 44087.5 6 g 62 /min 97 % 97 % 98.1 [degF] 150/80 mm[Hg] RISHABH [facility] 5 10:09:34 Date Recorded Body height Body mass index (BMI) Body weight Oxygen saturation Oxygen saturation in Arterial blood by Pulse oximetry Heart rate Respiratory rate Systolic And Diastolic Provider Name and Address Organization Details Last Updated DateTime 5 152.4 cm 25.8 kg/m2 34515.1 9 g 95 % 95 % 70 /min 18 /min 150/80 mm[Hg] XIMENA KEATING [facility] 5 10:11:17 Date Recorded Body height Body mass index (BMI) Body weight Oxygen saturation Oxygen saturation in Arterial blood by Pulse oximetry Heart rate Respiratory rate Systolic And Diastolic Provider Name and Address Organization Details Last Updated DateTime 5 152.4 cm 26.6 kg/m2 76023.5 6 g 95 % 95 % 76 /min 20 /min 138/82 mm[Hg] XIMENA KEATING [facility] 5 12:04:30 Date Recorded Body height Body mass index (BMI) Body weight Oxygen saturation Oxygen saturation in Arterial blood by Pulse oximetry Heart rate Respiratory rate Body temperature Systolic And Diastolic Provider Name and Address Organization Details Last Updated DateTime 5 152.4 cm 26.8 kg/m2 01144.1 5 g 97 % 97 % 72 /min 18 /min 98 [degF] 120/70 mm[Hg] BRANDON RIVERA [facility] 5 12:37:22 Social History Question Answer Notes LastModified by Organizat ion Details LastModified Time Tobacco Smoking Status Former Smoker Quit 07/2023 XIMENA KEATING [facility] 12/24/2023 12:30:16 What Type Of Diet Are You Following? REGULAR [email or web address] Information not available 12/24/2023 Which Illicit Or Recreational Drugs Have You Used? Smokes Meth [email or web address] Information not available 10/10/2023 When Did You Quit Smoking? 1-5yearssin [email or web address] ette Information not available 12/24/2023 What Was The Date Of Your Most Recent Tobacco Screening? 12/24/2023 Information not available 12/24/2023 What Is Your Current Pack Years? 20-29packye ars Information not available 12/24/2023 What Is Your Relationship Status? Single [email or web address] Information not available 12/24/2023 At What Age [...] or recreational drugs? Yes Quit Meth 07/2023 [email or web address] Information not available 12/24/2023 Do you or have you ever used any other forms of tobacco or nicotine? No Information not available 12/24/2023 What is your level of alcohol consumption? None [email or web address] Information not available 10/10/2023 Are you currently employed? No disabled [email or web address] Information not available 10/10/2023 Are you able to walk independently without assistance or assistive devices? [email or web address] Information not available 10/10/2023 Are you able to care for yourself independently? No Mother is her caregiver. [email or web address] Information not available 10/10/2023 Do you or have you ever used any nicotine-free cigarettes, vape, or chewing tobacco? No Information not available 12/24/2023 Mental Status None recorded. Family History Relationship Description Onset Age of this Age Resolved Age Notes LastModified by Organization Details LastModified Time Mother Myocardial infarction In her 50's [email or web address] Not available 12/29/2023 23:44:26 Mother Rheumatoid arthritis [email or web address] Not available 12/28 23:44:44 Brother Acute lymphoid leukemia [email or web address] Not available 10/18 18:24:23 Medical History Condition [...] Recorded Time pneumococcal polysaccharide PPV23 8 completed ELIZABETH HOUSER, [facility] [address] [place], [address], [facility] 12/24/2023 12:51:09 Past Encounters Encounter ID Performer Location Encounter Start Date Encounter Closed Date Diagnosis/Indication Diagnosis SNOMED-CT Code Diagnosis ICD10 Code Diagnosis IMO Codes Diagnosis Note [id number] SUZANNE HEATON [facility] ([facility]) [address] [place] [address] 10/10/2023 11:29:12 10/10/2023 13:24:32 Uncontrolled type 1 diabetes mellitus 073851949 E10.[address] Otrega. End stage renal failure on dialysis 518013297 Z99.2 MWF dialysis. Multi vess el coronary artery disease 805402784 I25.10 Following with cardiology in [facility]. Essential hypertension 64690394 I10 Coronary arteriosclerosis 00683422 I25.10 Follows with cardiology in [facility]. [id number] Matthew Packer DO [facility] ([facility]) [address] [place] [address] 12/02/2023 12:01:39 12/02/2023 13:56:02 Dental abscess 737073456 K04.7 Will start patient on lower dose amoxicilli n due to her hemodialys is status. Counseled patient that it is imperative that she see and be evaluated by a dentist in the next 2 to 4 weeks. [id number] SUZANNE HEATON [facility] ([facility]) [address] [place] [address] 12/24/2023 11:37:48 12/24/2023 14:35:44 Mixed anxiety and depressive disorder 330196861 F41.8 Essential hypertension 88516208 I10 Starting Nifedipine today. Type 1 mainor betes mellitus 85120051 E10.[address] Ortega. Pain in bi lateral legs 3213298549 8653672 M79.604 M79.605 Patient reports she took some of her mom's in the past and it was helpful. End stage renal failure on dialysis 590746230 Z99.2 MWF dialysis. [id number] SUZANNE HEATON [facility] ([facility]) [address] [place] [address] 01/07/2024 15:11:38 01/07/2024 17:49:26 Edema 500006632 R60.9 Non-pittin g lower extremity. Chest pain 62172352 R07. 9 Recurrent. Following with cardiology . Abnormal b lood pressure 05783619 Z01.31 Will half dose of nifedipine until she is seen with cardiology . [id number] SUZANNE HEATON [facility] ([facility]) [address] [place] [address] 02/21/2024 11:42:22 02/21/2024 12:51:01 End-stage renal disease 51494174 N18.6 Continue dialysis. Essential hypertension 65010662 I10 Blood pressure good today. Continue current meds. Uncontroll ed type 1 diabetes mellitus 205288954 E10.65 Continue to follow with Dr. Ortega. Mixed anxi ety and depressive disorder 709673202 F41.8 [id number] ELIZABETH HOUSER [facility] ([facility]) [address] [place] [address] 04/01/2024 13:47:35 04/01/2024 15:21:12 Essential hypertension 66362708 I10 Monitor at home. Follow-up with cardiology . Uncontroll ed type 1 diabetes mellitus 471374514 E10.65 Continue to follow with [facility] 323877189 Z30.9 Has a Nexplanon in her left arm, has not been changed for 12 years per patient Chronic low back pain 27 1766515 M54.50 Would like to see about prescripti on for Tramadol. 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 Congestive heart failure 64492305 I50.9 Follows with Cardiology . Chronic ob structive pulmonary disease 27539916 J44.9 Uses Breo. Secondary hyperaldosteronism 48082486 E26.1 Currently on dialysis. Angina pectoris 93901963 0 I20.9 Follows with cardiology , has nitrostat, recent stent. Amputated toe 160886823 Z89.429 Follows with podiatry. Chronic re current major depressive disorder 1217087 F33.1 Continue Lexapro. [id number] SUZANNE HEATON [facility] ([facility]) [address] [place] [address] 05/01/2024 11:41:02 05/01/2024 13:20:39 Chronic chest pain 1430799070 88654 R07.9 Encouraged her mother to contact cardiology for follow-up. Essential hypertension 08745025 I10 Monitor at home. Restart Coreg. Abnormal vision 9023671 H54.7 [id number] ELIZABETH HOUSER [facility] ([facility]) [address] [place] [address] 07/01/2024 13:56:52 07/01/2024 15:11:16 Essential hypertension 56935655 I10 Blood pressure this am was 125/80. Type 1 mainor betes mellitus 02382876 E10.[address] Ortega. Mixed anxi ety and depressive disorder 105835021 F41.8 Swelling of lower leg 44 4997229 R22.40 Hypoxemic respiratory failure 3658121367 7893080 J96.91 Uses oxygen at home as needed. 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 Depressive disorder 3548 9007 F33.1 Continue escitalopr am. 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 Congestive heart failure 45759506 I50.9 I50.30 Follows with Cardiology . Chronic ki dney disease stage 5 232455581 N18.5 Z99.2 Currently on dialysis. Amputated toe 171697170 Z89.429 Follows with podiatry. Low back pain 501586809 M54.50 Gabapentin . Hypertensi ve heart and renal disease with (congestive) heart failure 194170735 I13.2 Follows with Cardiology . Chronic ob structive pulmonary disease 90392867 J44.9 Uses Breo. Chronic ki dney disease due to type 2 diabetes mellitus 4578220579 08 N18.6 Currently on dialysis. [id number] ELIZABETH HOUSER [facility] ([facility]) [address] [place] [address] 09/16/2024 09:15:48 09/16/2024 11:21:40 Coronary arteriosclerosis 91441048 I25.10 Recent stent placement. Anemia 712919049 D64.9 Acute supp urative otitis media without spontaneous rupture of ear drum 90450096 H66.001 Pain in bi lateral legs 8773152630 9331961 M79.604 M79.605 She has been taking 100mg three times daily but feels like it needs to be increased. [id number] SUZANNE HEATON [facility] ([facility]) [address] [place] [address] 10/05/2024 10:02:53 10/05/2024 11:11:59 Coronary atherosclerosis 248815517 I25.10 She has 8 stents now. Mixed anxi ety and depressive disorder 572570383 F41.8 She has been having vivid dreams lately revolving around her brother who recently as well as her daughter who . Hospital i npatient stay within past 30 days 6390165489 106 Z76.89 [id number] SUZANNE HEATON [facility] ([facility]) [address] [place] [address] 11/27/2024 09:57:25 11/27/2024 10:57:38 Essential hypertension [id number] I10 Blood pressure this am was 179/112 at home, in office is 150/80. Afternoon readings have been good. Type 1 mainor betes mellitus [id number] E10.[address] Ortega. Pain in bi lateral legs [id number] M79.604 M79.605 Anxiety 84282964 F41.8 [id number] Unable to lay still for MRI. Will send in clonazepam to take prior to procedure. [id number] SUZANNE HEATON [facility] ([facility]) [address] [place] [phone] 01/06/2025 11:45:44 01/06/2025 13:58:55 Chronic chest pain [id number] 54020 R07.9 G89.29 619256 Chronic ki dney disease stage 5 [id number] N18.5 Z99.2 Currently on dialysis. Coronary arteriosclerosis 67538248 I25.10 Recent stent placement. Follow-up with cardiology next week. Will discuss chest pain with them as well. [id number] SUZANNE HEATON [facility] ([facility]) [address] [place] [address] 03/03/2025 12:06:42 03/03/2025 14:00:46 Neuropathy due to diabetes mellitus 053600557 E11.40 Decrease gabapentin to 100mg three times daily. Chronic renal failure 90 505844 N18.5 [id number] Dialysis. Hyperkalemia 59313641 E8 7.5 9805 Labs checked yesterday at Dialysis. Atypical chest pain 1025 51529 R07.89 [id number] Recurrent. Following with cardiology . Recently started Isosorbide . History of abnormal cervical Papanicolaou smear 807171176 Z87.42 [id number] Health Concerns Section Related Observation LastModified by Organization Detai ls LastModified Time None Recorded Concern Status LastModified by Organization Details LastModified Time None Recorded Advance Directives Directive None Recorded Payers Insurance Date Sequence Insurance Name Policy Number Policy Varela Covered Member ID Varela Member ID Guarantor Name 02/22/2025 [place] - [facility] (MEDICARE) Donita Aguilar [id number] Donita Aguilar 02/22/2025 [place] [facility] Donita Aguilar [id number] Donita Aguilar 02/22/2025 2 [place] Donita Aguilar [id number] Donita Aguilar 02/22/2025 1 [place] [facility] Donita Aguilar [id number] Donita Aguilar 12/07/2024 1 [facility] (MEDICAID REPLACEMENT - HMO) [facility] Donita Aguilar [id number] Donita Aguilar Notes Date Note Type Note Provider Name and Address Organization Details Recorded Time 5 text/htm l Coronary Artery Disease F/UReported by PatientHPIFor severity, patient reportssymptoms are improvingandno chest discomfort with daily activities. For context, patient reportsnon-smoker. For treatment, patient reportsadheres to lifestyle changes. For associated symptoms, patient reportsno chest pain,no dyspnea with exertion,no diaphoresis,no nausea,no back pain,no jaw pain, andno dizziness. AnemiaReported by PatientHPIFor quality, patient reportscannot identify. For timing, patient reportsbetter.Pt was having chest pain, shortness of breath, and weakness prior to hospitalization. Hgb was reportedly low in hospital, requiring 1 unit blood transfusion. Denies any symptoms since hospital discharge. Ear Pain Brief HPIReported by PatientHPIFor associated symptoms, patient reportsnasal dischargebut reportsno vertigo,no jaw popping or clicking,no discharge from ear,no hearing loss,no dental pain,no jaw pain, andno tinnitus. For location, patient reportsright. For onset/timing, patient reportsstarted 2weeks agoandconstant pain. For duration, patient reportsconstant pain. For quality, patient reportsno itching,no discharge from the ears, andno burning. For severity, patient reportsno feverandno interference with sleep. For context, patient reportsno recent trauma,no recent swimming,no dental problems, andnon-smoker. ELIZABETH HOUSER, [address], [phone], [facility] 09/16/2024 11:21:13 5 text/htm l Coronary Artery Disease F/UReported by PatientHPIFor context, patient reportsuncontrolled hypertensionbut reportsnon-smoker. For associated symptoms, patient reportsneck pain at rest,diaphoresis,back pain at rest, andback pain with exertionbut reportsno chest pain,no dyspnea with exertion,no nausea,no jaw pain, andno dizziness. For severity, patient reportssymptoms are improvingandno chest discomfort with daily activities. For treatment, patient reportsdoes not adhere to lifestyle changes. ELIZABETH HOUSER [address], [address], [facility] 10/05/2024 10:57:13 5 text/htm l DiabetesReported by PatientHPIFor duration, patient reportschronic. For control, patient reportstreated with insulinandhemoglobin a1c has been 7-8. For compliance, patient reportscompliant with medicationsandcompliant with follow-up visits. For self care, patient reportsmonitoring glucose __. Hypertension IM/FMReported by PatientHPIFor severity, patient reportsstage 2 (>140/>90 mmhg). For associated symptoms, patient reportsfatigue. For quality, patient reportshere for check-up. For duration, patient reportshtn present for ___ years. For alleviating factors, patient reportsmedication. For risk factors, patient reportsmyocardial infarction,end-stage renal disease, anddiabetes. ELIZABETH HOUSER, [address], [phone], [facility] 11/27/2024 11:31:59 5 text/htm l Angina/Chest PainReported by PatientHPIFor quality, patient reportssqueezingandsoreness. For location, patient reportsmidsternal. For severity, patient reportsmoderate. SUZANNE HEATON [address] [place] [address], [phone], [facility] 01/06/2025 12:54:30 5 text/htm l DyspneaReported by PatientHPIFor quality, patient reportssqueezing,tightness,p ressure,can't catch breath,breathlessness,inabil ity to take a deep breath, andhurts to breathe. For associated symptoms, patient reportsfever,chills,weakness ,hoarseness, anddecrease in exercise capacity. For severity, patient reportsmoderateandlimits activity. For duration, patient reportsfor 2 weeks. For onset/timing, patient reportswith exertion. For pulmonary disease history, patient reportshistory of pulmonary disease. Hospital follow up 02/27/25 sob,kidney issues. Dr wants gabapentin lowered back to 100mg. ELIZABETH HOUSER, DOG LICENSER [address] [place] [address], [phone], [facility] 03/03/2025 13:06:19 OBGyn Episode No OBEpisode recorded.
--- OUTSIDE RECORDS SUMMARY | 2025-03-21 19:21 | XMS_ITS | Clinical Summary ---
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9(H) 4.0 - 6.0 % 01/09/2017 1:31 PM CDT [facility] EST. AVG GLUCOSE, A1C 209 mg/dL 01/09/2017 1:31 PM CDT [facility] Blood 01/09/2017 2:52 AM CDT 01/09/2017 6:53 AM CDT Narrative [facility] - 01/09/2017 1:31 PM CDT Test performed on Charge PaymentII instrumentation using HPLC methodology us Izabela Diamond MD CHEMISTRY ORDERABLES Final Res ult [facility] CLIA# [id number] [address] [place] [address] from Last 3 Months or Most Recently Relevant to Health [place] [address] REPLACED BY [facility] MEDICAID Advance Directives For more information, please contact: [phone] * Full Code (Latest Code Status on File) Date Activated Date Inactivated Comments 12/17/2016 1:05 PM 12/27/2016 11:32 PM Care Teams Employment Training Specialist Relationship Specialty Start Date End Date Shravan Jones DO [address] [address] PCP - General Family Practice 12/04/16
--- OUTSIDE RECORDS SUMMARY | 2025-03-21 19:21 | XMS_ITS | Encounter Summary ---
Author Organization [facility] Address [address] [place] [address] Care Team Providers Care Hat Blocking Operator Name Role Phone Shravan Jones DO Primary Care Provider Encounter Details Date Type Department Care Team (Late st Contact Info) Description 12/28/2016 Lab Requisition [facility] [address] [place] [address] [place] [address] David Ortega MD [address] [place] [address] Social History Tobacco Use Types Packs/Day Years Used Date Smoking Tobacco: Every Day Cigarettes Comments:pt lethargic Comments Unknown Sex and Gender Information Value Date Recorded Sex Assigned at Not on file 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 MAGNESIUM 1.6 1.6 - 2.6 mg/dL 12/28/2016 5:42 AM CDT [facility] Blood Collection / Unknown 12/28/2016 2:39 AM CDT 12/28/2016 5:01 AM CDT Narrative [facility] - 12/28/2016 5:42 AM CDT Due to [facility] Nurse update, MG+ reference range has changed from 1.8 - 2.4 mg/dL to the new reference range of 1.6 - 2.6 mg/dL. This will have limited patient impact. David Ortega MD CHEMISTRY ORDERABLES Final Res ult Performing Organization Address [facility] Co de Phone Number [facility] CLIA# [id number] [address] [place] [phone] * PROTIME-INR (12/28/2016 2:39 AM CDT) [facility] PROTIME 15.0 12.3 - 15.5 Seconds 12/28/2016 5:16 AM CDT [facility] INR 1.1 0.8 - 1.2 12/28/2016 5:16 AM CDT [facility] Blood Collection / Unknown 12/28/2016 2:39 AM CDT 12/28/2016 5:01 AM CDT [place] [facility] - 12/28/2016 5:16 AM CDT Expected Values for INR: DVT/PE Goal INR 2.5; range 2.0 - 3.0 Valve Replacement Tissue Goal INR 2.5; range 2.0 - 3.0 Valve Replacement Mechanical Goal INR 3.0; range 2.5 - 3.5 POST-[place] Goal INR 2.5; range 2.0 - 3.0 or Goal INR 3.0; range 2.5 - 3.5 Atrial Fibrillation Goal INR 2.5; range 2.0 - 3.0 Ischemic Stroke Goal INR 2.5; range 2.0 - 3.0 For additional information see Guidelines for Anticoagulation available from the pharmacy Wendy Vargas Pharm D. David Ortega MD HEMATOLOGY ORDERABLES Final Re sult [facility] CLIA# [id number] [address] [place] [address] * (ABNORMAL) PTT (12/28/2016 2:39 AM CDT) PTT 39.1(H) 24.8 - 38.8 seconds 12/28/2016 5:16 AM CDT [facility] Blood Collection / Unknown 12/28/2016 2:39 AM CDT 12/28/2016 5:01 AM CDT [place] [facility] - 12/28/2016 5:16 AM CDT Therapeutic Range: Hi-level PE/DVT heparin protocol 80.1 - 95.0 sec Lo-level PE/DVT heparin protocol 70.1 - 85.0 sec Cardiac Heparin Protocol 70.1 - 100.0 sec David Ortega MD HEMATOLOGY ORDERABLES Final Re sult [facility] CLIA# [id number] [facility] [place] [address] * (ABNORMAL) CBC WITH DIFFERENTIAL (12/28/2016 2:39 AM CDT) Pathologist [facility] WBC 11.0 4.5 - 11.0 K/uL 12/28/2016 5:09 AM CDT [facility] RBC 3.80(L) 4.20 - 5.40 M/uL 12/28/2016 5:09 AM CDT [facility] HEMOGLOBIN 9.3(L) 12.0 - 16.0 g/dL 12/28/2016 5:[facility] H[facility] 30.6(L) 36.0 - 46.0 % 12/28/2016 5:09 AM CDT [facility] MCV 80.5(L) 84.0 - 103.0 fL 12/28/2016 5:09 AM CDT [facility] MCH 24.5(L) 27.0 - 34.0 pg 12/28/2016 5:09 AM CDT [facility] MCHC 30.4 30.0 - 35.0 g/dL 12/28/2016 5:09 AM CDT [facility] RDW 17.3(H) 11.0 - 14.5 % 12/28/2016 5:09 AM T [facility] RDW-STDEV 51.8 37.0 - 54.0 fL 12/28/2016 5:09 AM CDT [facility] PLATELETS 757(H) 140 - 440 K/uL 12/28/2016 5:09 AM CDT [facility] MPV 8.9 8.9 - 12.8 fL 12/28/2016 5:09 AM CDT [facility] NEUTROPHILS 65 42 - 75 % 12/28/2016 5:09 AM CDT [facility] LYMPHOCYTES 19(L) 24 - 44 % 12/28/2016 5:09 AM CDT [facility] MONOCYTES 10 2 - 10 % 12/28/2016 5:09 AM CDT [facility] EOSINOPHILS 5 0 - 7 % 12/28/2016 5:09 AM CDT [facility] BASOPHILS 1 0 - 1 % 12/28/2016 5:09 AM CDT [facility] IMMATURE GRANULOCYTES 1 0 - 2 % 12/28/2016 5:09 AM CDT [facility] NEUTROPHIL ABSOLUTE 7.19 2.00 - 8.00 K/uL 12/28/2016 5:09 AM CDT [facility] LYMPHOCYTE ABSOLUTE 2.04 1.20 - 4.00 K/uL 12/28/2016 5:09 AM CDT [facility] MONOCYTE ABSOLUTE 1.06(H) 0.10 - 0.60 K/uL 12/28/2016 5:09 AM CDT [facility] EOSINOPHIL ABSOLUTE 0.60 0.00 - 0.70 K/uL 12/28/2016 5:09 AM CDT [facility] BASOPHILS ABSOLUTE 0.07 0.00 - 0.20 K/uL 12/28/2016 5:09 AM CDT [facility] IMMATURE GRANULOCYTES ABSOLUTE 0.07 0.00 - 0.10 K/uL 12/28/2016 5:09 AM T [facility] Blood Collection / Unknown 12/28/2016 2:39 AM CDT 12/28/2016 5:01 AM CDT us David Ortega MD HEMATOLOGY ORDERABLES Final Re sult [facility] CLIA# [id number] [address] [place] [address] * (ABNORMAL) COMPREHENSIVE METABOLIC PANEL (12/28/2016 2:39 AM CDT) SODIUM 143 136 - 145 mmol/L 12/28/2016 5:47 AM CDT [facility] POTASSIUM 3.3(L) 3.5 - 5.1 mmol/L 12/28/2016 5:[address] [facility] CHLORIDE 103 98 - 107 mmol/L 12/28/2016 5:[address] [facility] CO2 29 21 - 32 mmol/L 12/28/2016 5:[address] [facility] CALCIUM 8.9 8.4 - 10.1 mg/dL 12/28/2016 5:[address] [facility] BUN 13 7 - 17 mg/dL 12/28/2016 5:[address] [facility] CREATININE 0.70 0.55 - 1.02 mg/dL 12/28/2016 5:[address] [facility] GLUCOSE 46(LL) 74 - 106 mg/dL 12/28/2016 5:[address] [facility] TOTAL PROTEIN 8.2 6.4 - 8.2 g/dL 12/28/2016 5:[address] [facility] ALBUMIN 1.8(L) 3.4 - 5.0 g/dL 12/28/2016 5:[address] [facility] BILIRUBIN TOTAL 0.2 0.2 - 1.0 mg/dL 12/28/2016 5:[address] [facility] ALKALINE PHOSPHATASE 93 25 - 100 U/L 12/28/2016 5:[address] [facility] AST 18 15 - 37 U/L 12/28/2016 5:[address] [facility] ALT 18 13 - 61 U/L 12/28/2016 5:[address] [facility] GFR >60 >=60 mL/min/1.7 3 sq meter 12/28/2016 5:[address] [facility] Comment: eGFR has not been validated [...] 3 sq meter 12/28/2016 5:47 AM CDT [facility] ANION GAP 11 4 - 30 mmol/L 12/28/2016 5:47 AM CDT [facility] Blood Collection / Unknown 12/28/2016 2:39 AM CDT 12/28/2016 5:01 AM CDT us David Ortega MD CHEMISTRY ORDERABLES Final Res ult [facility] CLIA# [id number] [address] [place] [address] documented in this encounter Visit Diagnoses Not on filedocumented in this encounter Care Teams Hat Blocking Operator Relationship Specialty Start Date End Date Shravan Jones DO [address] [address] PCP - General Family Practice 12/04/16 documented as of this encounter
--- OUTSIDE RECORDS SUMMARY | 2025-03-21 19:21 | XMS_ITS | Clinical Summary ---
Author Organization [employer] Address [address] [facility] Attn: [place] [address] Care Team Providers Care Funeral Director/Embalmer Name Role Phone Shravan Jones DO Primary [...] subcutaneous injection. Active naloxone (NARCAN) 4 mg/spray [place], Non-Aerosol EMERGENCY USE ONLY: Administer 1 spray [...] regarding vascular access for dialysis for ESRD ([facility]) Take 1 Tablet (5 mg) by mouth [...] troponin 09/22/2023 Coronary artery disease invo lving [place] coronary artery of [place] heart without angina pectoris 09/21/2023 End stage [...] STL ABSTRACTION Provider, Abstract 12/30/2024 Orders Only [facility] Gastroenter[facility] [address] Elizabeth Dougherty, STENOTYPIST Fatty liver (Primary Dx) from Last 3 Months Immunizations Immunization Administration [...] and Family Not on file 09/22/2023 Attends [employer] Not on file 09/21 Active Member [...] file 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 [place] [address] Abel Menon DO [address] [place] [address] Health Maintenance Due Date Last [...] 10/11/1999, 09/06/1999 Medical Devices Implanted Type Area Inset Cutter Device Identifier Shelf Expiration Date Model / Serial / Lot Max dailym Flour [id number] - [id number] Implanted:Qty : 2 on 12/17/2016 by Deandre Alan MD Biological Left: Lung CR BARD- DAVOL INC 09/19/2019 [id number] / / [id number] Cath Dialysis Glidepath 14.5fr 24cm Std [id number] - [id number] Implanted:Qty : 1 on 03/18/2024 by Asif Mcclellan MD at [facility] Catheter Right: Chest BARD ANGEL VASC 09/21/2025 [id number] / / [id number] Clip Ligating Horizon Red [id number] - [facility] [id number] Implanted:Qty : 1 on 08/10/2024 by Chato Fitch MD at [facility] Clip Left: Arm TELE[employer]LEX INC [id number] 05/16/2029 715775 / / [id number] Clip Ligating Horizon Med Ti 658923 - Csc - [id number] Implanted:Qty : 1 on 08/10/2024 by Chato Fitch MD at [facility] Clip Left: Arm TELEFLEX- WECK CLOSURE SYS [id number] 03/31/2029 [id number] / / [id number] Bilingual Sales Representative Ligaclip Sml Mcs20 - [id number] Implanted:Qty : 1 on 08/10/2024 by Chato Fitch MD at [facility] Clip Left: Arm J&J- [employer] [id number] 03/23/2029 MCS20 / / [id number] Closure Perclose Prostyle Sut Mediate 10486-66 - [id number] Implanted:Qty : 1 on 09/24/2023 by Janell Beauchamp MD at [facility] Closure Device N/A: Groin LOVE- VASC DEVICE [id number] 06/23/2025 71719-58 / / [id number] Closure Perclose Prostyle Sut Mediate 32451-38 - [id number] Implanted:Qty : 1 on 10/24/2023 by Janell Beauchamp MD at [facility] Closure Device Right: Groin LOVE- VASC DEVICE [id number] 07/24/2025 59858-64 / / [id number] Oil Slc 8.5ml [id number] - Sgtin:[id number] Implanted:Qty : 1 on 06/23/2024 by Janey Carrera MD at [facility] Eye Right: Eye [facility]INA LAB 12/21/2026 [id number] / [id number] / [id number] Graft Vasc Propaten 4-2vrv70uj [id number] - [id number] Implanted:Qty : 1 on 08/10/2024 by Chato Fitch MD at [facility] Graft Left: Arm [employer] [id number] 05/21/2027 [id number] / [id number] / Agent Hemostat Surgicel 2x3in 1952s - [id number] Implanted:Qty : 1 on 08/10/2024 by Chato Fitch MD at [facility] Hemostatic Left: Arm J&J- ETHICON INC [id number] 12/21/20281952S / / [id number] Hemostatic Surgiflo 8ml W/ Thrombin 2994 - [id number] Implanted:Qty : 1 on 08/10/2024 by Chato Fitch MD at [facility] Hemostatic Left: Arm J&J- ETHICON INC [id number] 10/21/2025 2994 / / [id number] Agent Hemostat Surgicel 2x3in 1952s - [id number] Implanted:Qty : 1 on 08/10/2024 by Chato Fitch MD at [facility] Hemostatic Left: Arm J&J- ETHICON INC [id number] 12/21/20281952S / / [id number] Stent Synergy Xd 3.0x48mm Evrlms Elut [id number] - [id number] Implanted:Qty : 1 on 09/24/2023 by Janell Beauchamp MD at [facility] Stent N/A: Coronary BOSTON SCI GENEVIEVE [id number] 03/31/2025 [id number] / / [id number] Stent Synergy Xd 2.53u61bi Evrlms Elut [id number] 0 - [id number] Implanted:Qty : 1 on 10/24/2023 by Janell Beauchamp MD at [facility] Stent Left: Coronary [employer] [id number] 08/19/2024 [id number] 220 / / [id number] Control Implant Funmi Procedures Procedure Name Priority Date/Time Associated Diagnosis Comments LIPID PANEL Routine 09/21/2023 6:47 PM CDT HEMOGLOBIN A1C Routine 09/21/2023 6:46 PM CDT from Last 3 Months or Most Recently Relevant to Health Maintenance Results * (ABNORMAL) LIPID PANEL (09/21/2023 6:47 PM CDT) [facility] CHOLESTEROL 96 <200 mg/dL 09/21/2023 10:29 PM CDT [facility] TRIGLYCERIDE 164(H) <150 mg/dL 09/21/2023 10:29 PM CDT [facility] HDL 36(L) 40 - 59 mg/dL 09/21/2023 10:29 PM CDT [facility] LDL CALCULATED 27 <100 mg/dL 09/21/2023 10:29 PM CDT [facility] NON-HDL CHOLESTEROL 60 <130 mg/dL 09/21/2023 10:29 PM T [facility] Blood Venipuncture / Unknown 09/21/2023 6:47 PM CDT 09/21/2023 7:10 PM CDT Narrative [facility] - 09/21/2023 10:29 PM CDT TOTAL [...] Lacy MD CHEMISTRY ORDERABLES Final R esult [facility] [employer] [facility] CLIA # [id number] [id number] [place], [place] [id number] * (ABNORMAL) HEMOGLOBIN A1C (09/21/2023 6:46 PM CDT) HEMOGLOBIN A1C 6.8(H) <=5.6 % 09/23/2023 9:24 AM CDT [facility] [employer] [facility] EST. AVG GLUCOSE, A1C 148 mg/dL 09/23/2023 9:24 AM CDT [facility] [employer] [facility] Blood Venipuncture / Unknown 09/21/2023 6:46 PM CDT 09/21/2023 7:08 PM CDT Narrative [facility] [employer] [facility] - 09/23/2023 9:24 AM CDT HGB A1C INTERPRETATION NORMAL: <5.7% PRE-DIABETES: 5.7 - 6.4% DIABETES: 6.5% OR GREATER Luiz Lacy MD CHEMISTRY ORDERABLES Final R esult Performing Organization Address [facility] Co de Phone Number [facility] CLIA # [id number] [address] [address] from Last 3 Months or Most Recently Relevant to Health Maintenance Insurance MEDICAID [place] MEDICARE PART A AND B Advance Directives For more information, please contact: [phone] * Full Code (Latest Code Status on File) Date Activated Date Inactivated Comments 10/24/2023 2:34 PM 10/25/2023 11:47 AM * Full Code Date Activated Date Inactivated Comments 10/24/2023 9:13 AM 10/24/2023 2:34 PM * Full Code Date Activated Date Inactivated Comments 09/24/2023 3:14 PM 09/25/2023 9:51 PM * Full Code Date Activated Date Inactivated Comments 09/21/2023 5:50 PM 09/24/2023 3:14 PM Care Teams Funeral Director/Embalmer Relationship Specialty Start Date End Date Shravan Jones DO [address] [address] PCP - General Family Practice 12/04/16
--- NOTE | 2025-03-21 19:22 | XRR_ITS ---
PROCEDURE INFORMATION: Exam: XR Chest Exam date and time: 03/21/2025 7:26 PM Age: 39 years old Clinical indication: Pain; Chest pressure; Additional info: Chest pain radiating to lt arm TECHNIQUE: Imaging protocol: Radiologic exam of the chest. Views: 1 view. COMPARISON: CR XR chest 1V portable [id number] 03/04/2025 2:46 PM FINDINGS: Lungs: Unremarkable. No consolidation. Pleural spaces: Unremarkable. No pleural effusion. No pneumothorax. Heart/Mediastinum: Unremarkable. No cardiomegaly. Bones/joints: Unremarkable. Organs: Cholecystectomy clips XR/XR chest 1V portable [id number] IMPRESSION: No acute findings.
--- NOTE | 2025-03-21 19:24 | ECG_ITS ---
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 Measurements Intervals Emma Rate: 67 P: 43 NM: 189 QRS: -5 QRSD: 108 T: 35 QT: 425 QTc: 449 Interpretive Statements SINUS RHYTHM NONSPECIFIC T-WAVE ABNORMALITY Compared to ECG 03/04/2025 16:17:13 NO SIGNIFICANT CHANGE Electronically Signed On 03-22-2025 12:52:22 CDT by Vance Valdez M.D. [email or web address]
[2025-03-21 20:08] LABS: Hematocrit 27.6 % (36-47); Hemoglobin 8.80 g/dL (11.27-16.99); Mean Corpuscular HGB Conc 31.9 g/dL (30-55); Mean Corpuscular Hemoglobin 31.1 pg (27-33); Mean Corpuscular Volume 97.5 fl (85-98); Nucleated Red Blood Cells % 0 %; Platelet Count 144 10^3/cmm (157-399); Red Blood Count 2.83 10^6/uL (3.85-5.65); White Blood Count 5.93 10^3/uL (3.29-11.43)
[2025-03-21 20:26] LABS: Alanine Aminotransferase 22 U/L (0-33); Albumin Level 3.8 g/dL (3.5-5.2); Alkaline Phosphatase 183 U/L (35-105); Anion Gap 11.6 (5-19); Aspartate Amino Transferase 15 U/L (0-32); Blood Urea Nitrogen 15 mg/dL (6-20); Calcium 9.1 mg/dL (8.5-10.5); Carbon Dioxide 32 mmol/L (22-29); Chloride 97 mmol/L (98-107); Globulin 3.7 g/dL (1.3-4.6); Glucose 138 mg/dL (65-115); Magnesium 2.1 mg/dL (1.7-2.3); Osmolality Calculated 285 mOsm/kg (285-295); Potassium 4.6 mmol/L (3.5-5.1); Sodium 136 mmol/L (136-145); Total Protein 7.5 g/dL (6.6-8.7)
[2025-03-21 20:35] LABS: Creatinine Clr Calc Pharmacy 12.9543
--- NOTE | 2025-03-21 20:35 | ED_ITS ---
HPI - Chest Pain 2 General: Chief Complaint: Chest Pain Stated Complaint: Chest pains, pain going down LT arm Time Seen by Provider: 03/21/25 19:22 History of Present Illness: Patient is a 39-year-old female with ESRD on hemodialysis who presents with chest pain radiating to the left arm. The patient describes the pain as going from here all the way down my arm on the left side. She reports having been prescribed muscle relaxers for this condition previously, but states they have not provided relief. The patient also reports fever with temperatures of 100.3?F and 99.9?F today. She denies cough or other respiratory symptoms. Has been coming to the facility frequently over the past few weeks for similar chest tightness episodes where the patient feels like she's having a heart attack. Previous diagnostic tests have reportedly been negative, and providers have suggested the symptoms may be due to spasms. The patient reports mild shortness of breath with the chest pain. Her most recent dialysis session was yesterday, which she indicates did go well. Related Data Home Medications ?Medication ?Instructions ?Recorded ?Confirmed gabapentin 100 mg capsule 100 mg PO TID 12/27/2303/15 clopidogrel 75 mg tablet 75 mg PO DAILY 04/28/2402/23 escitalopram oxalate 20 mg tablet 20 mg PO DAILY anxie ty 02/14/25 03/15/25 folic acid 1 mg tablet 1 mg PO DAILY 02/14/2503/15 hydralazine 25 mg tablet 12.5 mg PO BID 02/14/2502/23 tizanidine 4 mg tablet 4 mg PO Q6H PRN Muscle Spasm 02/14/25 03/15/25 nitroglycerin 0.4 mg sublingual See Rx Instructions .R oute .COMPLEX 02/22/25 03/15/25 tablet Previous Rx's ?Medication ?Instructions ?Recorded blood-glucose sensor (Dexcom G6 #3 ea 06/12/22 Sensor device) blood-glucose transmitter (Dexcom #1 ea 06/12/22 G6 Transmitter device) blood-glucose,wooden furniture polisher,cont #1 ea 06/12/22 (Dexcom G6 Ops Manager) sevelamer carbonate 800 mg tablet 800 mg PO TID #90 ta bs 09/16/23 aspirin 81 mg tablet,delayed 81 mg PO QAM 30 days #30 tabs 03/28/24 release atorvastatin 40 mg tablet 40 mg PO BEDTIME 30 days #30 tabs 03/28/24 AFO brace #1 ea 04/20/24 diabetic shoes with 3 inserts #1 ea 04/20/24 amlodipine 5 mg tablet 5 mg PO DAILY #30 tabs 09/30 bumetanide 1 mg tablet See Rx Instructions .Route 0 09/30/24 .COMPLEX #60 tabs insulin aspart U-100 100 unit/mL See Rx Instructions . Route 12/28/24 (3 mL) subcutaneous pen (Novolog .COMPLEX #15 mL FlexPen U-100 Insulin aspart) isosorbide mononitrate 30 mg 30 mg PO DAILY #30 tabs 0 02/26/25 tablet,extended release 24 hr oxycodone 5 mg tablet 5 mg PO Q8H PRN pain #20 tab s 03/04/25 Allergies Allergy/AdvReac Type Severity Reaction Status Date / Time acetaminophen AdvReac Mild ADR-Gastrointestinal Verified 03/15/25 10:25 Upset PFSH ED 2 PFSH: Medical History (Updated 03/21/25 @ 22:37 by Jak Larose DO) Chest pain Diabetes mellitus HTN (hypertension) HTN (hypertension), benign Hyperkalemia Headache Accelerated hypertension Uncontrolled type 1 diabetes mellitus ESRD (end stage renal disease) Dialysis complication Hypoglycemia Hemodialysis catheter dysfunction Colitis End stage renal disease on dialysis COPD (chronic obstructive pulmonary disease) Transaminitis Intractable nausea and vomiting Hyperlipidemia CHF (congestive heart failure), NYHA class III Pulmonary hypertension CAD (coronary artery disease) Neurogenic bladder COVID-19 Tobacco dependence Drug abuse Anemia Community acquired pneumonia Esophagitis Long-term insulin use History of pancreatitis Celiac disease Recurrent UTI Non-alcoholic fatty liver disease Arnold-Chiari malformation Diabetic gastroparesis -continue Reglan Diabetic neuropathy associated with type 1 diabetes mellitus Headache, common migraine, intractable, with status migrainosus Pleural effusion 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 History of lung surgery -s/p LLL lobectomy secondary to cavitary pneumonia (2017) History of endoscopy History of cholecystectomy Family History Grandfather Diabetes Mother CAD (coronary artery disease) Diabetes Heart disease Hypertension Brother Acute lymphoblastic leukemia (ALL) in child Grandmother Thyroid disease Denies family history of Colon cancer Ovarian cancer Prostate cancer Hyperlipidemia Breast cancer Uterine cancer Stroke Social History Smoking and tobacco/nicotine status: former use of tobacco/nicotine Quit status (tobacco/nicotine): has quit using Former quit date comment: She previously smoked <1/2 PPD, quit July 2023. Second hand smoke exposure: Yes Alcohol intake: never Substance/Drug Use: current Household members: children Housing: House Marital status: Single Current occupational status: unemployed Female Reproductive History: Spontaneous abortions: No Physical Exam 2 Const: COMMON NORMALS: no acute distress GENERAL APPEARANCE: cooperative; not ill appearing and not frail appearing HENMT: COMMON NORMALS: normocephalic, atraumatic and Normal external nose present HEAD & SCALP: normocephalic and atraumatic FACE & SINUS: normal facial exam and face symmetric NOSE: Normal external nose present Eye: COMMON NORMALS: Equal, round and reactive pupils present and EOMs intact bilaterally PUPIL: Yes Equal, round and reactive pupils present Neck/C-Spine: GENERAL: Yes trachea midline Chest: CHEST: Yes Symmetrical chest wall rise Resp: COMMON NORMALS: normal respiratory effort, No retractions, No use of accessory muscles and clear to auscultation bilaterally AUSCULTATION: clear to auscultation bilaterally Cardio: COMMON NORMALS: regular rate and regular rhythm RATE: regular rate RHYTHM: regular rhythm GI: COMMON NORMALS: Normal to inspection, nondistended, normoactive bowel sounds present Extremity: COMMON NORMALS: no pedal edema Neuro: JEET COMA SCALE: document GCS findings Jeet coma scale eye opening: Spontaneous Lovell coma scale verbal response: Orientated Lovell coma scale motor response: Obey commands Jeet coma scale total score: 15 S ENSORY EXAM: Yes extremities (intact) Psych: COMMON NORMALS: speech normal SPEECH: Yes normal speech Skin: COMMON NORMALS: no rashes or lesions noted GENERAL SKIN EXAM: no rashes or lesions noted Course 2 Vital Signs: Vital signs: Vital Signs Pulse Rate 62 03/21/25 23:32 Respiratory Rate 16 03/21/25 22:30 Blood Pressure 109/58 03/21/25 23:32 Pulse Oximetry 100 03/21/25 23:32 Oxygen Delivery Me thod Room Air 03/21/25 22:30 MDM - Chest Pain Medical Decision Making Chest discomfort improved after morphine here. Her vitals have been stable. CBC and BMP are nonactionable. Her potassium is 5. Chest x-ray is nonacute. No signs of pulmonary edema. Troponin stable at 2 hours. She stable for discharge. Lab Data 03/21/25 19:55 03/21/25 19:55 Radiology Impressions Chest X-Ray 03/21/25 19:22 IMPRESSION: No acute findings. Laboratory Results WBC 5.93 10^3/uL (3.29-11.43) 03/21/25 19:55 RBC 2.83 10^6/uL (3.85-5.65) L 03/21/25 19:55 Hgb 8.80 g/dL (11.27-16.99) L 03/21/25 19:55 Hct 27.6 % (36-47) L 03/21/25 19:55 MCV 97.5 fl (85-98) 03/21/25 19:55 MCH 31.1 pg (27-33) 03/21/25 19:55 MCHC 31.9 g/dL (30-55) 03/21/25 19:55 RDW 13.7 % (12.1-15.1) 03/21/25 19:55 Plt Count 144 10^3/cmm (157-399) L 03/21/25 19:55 MPV 10.3 fL (7.4-10.4) 03/21/25 19:55 Neut % (Auto) 75.4 % 03/21/25 19:55 Lymph % (Auto) 14.3 % 03/21/25 19:55 [place] % (Auto) 5.4 % 03/21/25 19:55 Eos % (Auto) 4.0 % 03/21/25 19:55 Baso % (Auto) 0.7 % 03/21/25 19:55 Neut # (Auto) 4.47 10^3/uL (1.8-7.7) 03/21/25 19:55 Lymph # (Auto) 0.9 10^3/uL (0.8-4.8) 03/21/25 19:55 [place] # (Auto) 0.3 10^3/uL (0.2-0.9) 03/21/25 19:55 Eos # (Auto) 0.2 10^3/uL (0.0-0.8) 03/21/25 19:55 Baso # (Auto) 0.0 10^3/uL (0.0-0.1) 03/21/25 19:55 Nucleated RBC % (auto) 0 % 03/21/25 19:55 Nucleated RBCs # 0.0 /100WBC 03/21/25 19:55 Sodium 136 mmol/L (136-145) 03/21/25 19:55 Potassium 4.6 mmol/L (3.5-5.1) 03/21/25 19:55 Chloride 97 mmol/L (98-107) L 03/21/25 19:55 Carbon Dioxide 32 mmol/L (22-29) H 03/21/25 19:55 Anion Gap 11.6 (5-19) 03/21/25 19:55 BUN 15 mg/dL (6-20) 03/21/25 19:55 Creatinine 5.0 mg/dL (0.5-0.9) H 03/21/25 19:55 GFR Calculation 9.7 mL/min (90-130) L 03/21/25 19:55 Glucose 138 mg/dL (65-115) H 03/21/25 19:55 Calculated Osmolality 285 mOsm/kg (285-295) 03/21/25 19:55 Calcium 9.1 mg/dL (8.5-10.5) 03/21/25 19:55 Phosphorus 4.1 mg/dL (2.5-4.5) 03/21/25 19:55 Magnesium 2.1 mg/dL (1.7-2.3) 03/21/25 19:55 Total Bilirubin 0.4 mg/dL (0.15-1.2) 03/21/25 19:55 AST 15 U/L (0-32) 03/21/25 19:55 ALT 22 U/L (0-33) 03/21/25 19:55 Alkaline Phosphatase 183 U/L (35-105) H 03/21/25 19:55 Troponin T Baseline 243 ng/L (0-10) H* 03/21/25 19:55 Troponin T 120 Minute 223.9 ng/L (0-10) H 03/21/25 21:48 Delta Troponin T -19.1 ABS# (0-10) L 03/21/25 21:48 Total Protein 7.5 g/dL (6.6-8.7) 03/21/25 19:55 Albumin 3.8 g/dL (3.5-5.2) 03/21/25 19:55 Globulin 3.7 g/dL (1.3-4.6) 03/21/25 19:55 All radiology interpretation(s) finalized by discharge Discharge Plan Discharge Patient Disposition: Home Clinical Impression: Chest pain Condition: Stable Prescriptions: No Action (DME) AFO brace See Rx Instructions .Route .MEDSUPPLY Qty: 1 0RF Rx Instructions: As directed to the shoe guys ([facility]) diabetic shoes with 3 inserts See Rx Instructions .Route .MEDSUPPLY Qty: 1 0RF Rx Instructions: As directed to the shoe guys ([facility]) Dexcom G6 Ops Manager Misc See Rx Instructions .Route Qty: 1 0RF Rx Instructions: As directed ([facility]) Dexcom G6 Sensor Device See Rx Instructions .Route Qty: 3 0RF Rx Instructions: As directed ([facility]) Dexcom G6 Transmitter Device See Rx Instructions .Route Qty: 1 0RF Rx Instructions: As directed atorvastatin 40 mg tablet 40 mg PO BEDTIME 30 Days Qty: 30 0RF aspirin 81 mg tablet,delayed release (DR/EC) 81 mg PO QAM 30 Days Qty: 30 0RF amlodipine 5 mg Tablet 5 mg PO DAILY Qty: 30 0RF bumetanide 1 mg tablet See Rx Instructions .ROUTE .COMPLEX Qty: 60 0RF Rx Instructions: TAKE 1 TABLET BY MOUTH twice DAILY ON NON-DIALYSIS DAYS sevelamer carbonate 800 mg Tablet 800 mg PO TID Qty: 90 0RF gabapentin 100 mg Capsule 100 mg PO TID clopidogrel 75 mg tablet 75 mg PO DAILY insulin aspart U-100 [Novolog FlexPen U-100 Insulin] 100 unit/mL (3 mL) insulin pen See Rx Instructions .ROUTE .COMPLEX Qty: 15 0RF Rx Instructions: Inject 3 times daily, subcut, after meals, based on low-dose sliding scale. tizanidine 4 mg tablet 4 mg PO Q6H PRN (Reason: Muscle Spasm) hydralazine 25 mg tablet 12.5 mg PO BID folic acid 1 mg tablet 1 mg PO DAILY escitalopram oxalate 20 mg tablet 20 mg PO DAILY nitroglycerin 0.4 mg tablet, sublingual See Rx Instructions .ROUTE .COMPLEX Rx Instructions: DISSOLVE ONE TABLET UNDER THE TONGUE EVERY 5 MINUTES NEEDED FOR CHEST PAIN. DO NOT EXCEED A TOTAL OF 3 DOSES IN 15 MINUTES. isosorbide mononitrate 30 mg tablet extended release 24 hr 30 mg PO DAILY Qty: 30 0RF oxycodone 5 mg tablet 5 mg PO Q8H PRN (Reason: pain) Qty: 20 0RF Discharge Orders: Discharge ED (Routine); Ordered 03/21/25 Ordered By: Jak Larose Referrals: Elizabeth Dougherty FNP [Primary Care Provider, Unknown] Patient Instructions: Chest Pain (ED), Opioid Safety, Pain Management, Patient Portal & [place] Instructions Activity Restrictions/Additional Instructions: Return for any problems. Dialysis as scheduled. Print Language: Kuwaiti Coding Level of Care Code ED Instrument Repairer Helper for Reji Chandler
[2025-03-21 20:36] LABS: Troponin(5th) Baseline 243 ng/L (0-10)
[2025-03-21] MEDS: morphine 4 mg/mL SDV 1 mL IVP ×2 (20:43→22:30)
[2025-03-21] MEDS: ondansetron 2 mg/ML SDV 2 mL 4 MG IVP (20:43)
[2025-03-21 22:22] LABS: Troponin 5 2HR Delta -19.1 ABS# (0-10)
[2025-03-21 22:23] LABS: Troponin 5 2HR 223.9 ng/L (0-10)
[2025-03-21] MEDS: oxyCODONE-APAP 5-325 mg Tablet 2 TAB PO (23:21)
== END 2025-03-21 23:34 | disposition home or self-care (01) ==
PROVIDERS: Emergency Provider Emergency Medicine; PCP Nurse Practitioner Family
DX: R07.9 Chest pain, unspecified (principal); Z79.82 Long term (current) use of aspirin; Z79.02 Long term (current) use of antithrombotics/antiplatelets; Z79.4 Long term (current) use of insulin; Z87.891 Personal history of nicotine dependence; E10.22 Type 1 diabetes mellitus with diabetic chronic kidney disease; I13.2 Hypertensive heart and chronic kidney disease with heart failure and with stage 5 chronic kidney disease, or end stage renal disease; I50.9 Heart failure, unspecified; N18.6 End stage renal disease; J44.9 Chronic obstructive pulmonary disease, unspecified; I25.10 Atherosclerotic heart disease of native coronary artery without angina pectoris
CPT/HCPCS: 71045; 80053; 83735; 84100; 84484; 85025; 93005; 96374; 96375; 96376; 99285; J2270; J2405; J9999

== ENCOUNTER 2025-03-28 03:02 | Emergency (ER) | payer MEDICARE, MEDICAID, SELFPAY ==
[2025-03-28 03:08] VITALS: BP 145/68; PULSE 71; RESP 22; TEMP 36.8; O2SAT 100; BMI 28.5
--- NOTE | 2025-03-28 03:10 | ECG_ITS ---
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 Measurements Intervals [place] Rate: 66 P: 9 CO: 178 QRS: -11 QRSD: 111 T: -4 QT: 431 QTc: 455 Interpretive Statements SINUS RHYTHM MODERATE INTRAVENTRICULAR CONDUCTION DELAY [110+ ms QRS DURATION] Compared to ECG 03/21/2025 19:24:11 Intraventricular conduction delay now present T-wave abnormality no longer present Electronically Signed On 03-28-2025 21:27:26 CDT by Gilberto Eugene M.D. [id number]
--- OUTSIDE RECORDS SUMMARY | 2025-03-28 03:11 | XMS_ITS | Clinical Summary ---
Author Organization [facility] Facility Address [address] [address] Care Team Providers Care Ribbon Blocker Name Role Phone Alexis Garcia MD Primary Care Provider [phone] Encounters Date Type Department Care Team Description 03/25/2025 Orders Only [place] [facility] [address] [place] [address] Chey Navas MD 03/18/2025 Orders Only [place] [facility] [address] [place] [address] Chey Navas MD 03/16/2025 Treatment [facility] [address] [place] [address] Chey Navas MD End stage renal disease; Dependence on renal dialysis 03/11/2025 [facility] [address] [place] [address] Chey Navas MD 03/09/2025 Treatment [facility] [address] [place] [address] Melissa Wiley NP End stage renal disease; Dependence on renal dialysis 03/04/2025 Orders Only [place] [facility] [address] [place] [address] Chey Navas MD 03/02/2025 Orders Only [facility] [address] [place] [address] Chey Navas MD 03/02/2025 Treatment [facility] [address] [place] [address] Melissa Wiley, HAYDEE End stage renal disease; Dependence on renal dialysis 02/18/2025 Orders Only [facility] [address] [place] [address] Chey Navas MD 02/11/2025 Orders Only [facility] [address] [place] [address] Chey Navas MD 02/09/2025 [facility] [address] [place] [address] Chey Navas MD End stage renal disease; Dependence on renal dialysis 02/04/2025 [facility] [address] [place] [address] Chey Navas MD 02/02/[address] [place], [place] [address]rology [facility] [address] [place] [address] Karlene Cespedes, HAYDEE End stage renal disease; Dependence on renal dialysis 01/28/[address] [place], [place] [address]rology [facility] [address] [place] [address] Melissa Wiley NP End stage renal disease; Dependence on renal dialysis 01/28/2025 Orders Only [facility] [address] [place] [address] Chey Navas MD 01/21/2025 Orders Only [facility] [address] [place] [address] Chey Navas MD 01/14/2025 Orders Only [facility] [address] [place] [address] Chey Navas MD 01/12/[address] [place] [address] Nephrology [facility] [address] [place] [address] Chey Navas MD End stage renal disease; Dependence on renal dialysis 01/07/2025 [facility] [address] [place] [address] Chey Navas MD 01/05/[address] [place] [address] [facility] [address] [place] [address] Karlene Cespedes NP End stage renal disease; Dependence on renal dialysis 12/31/2024 [facility] [address] [place] [address] Chey Navas MD 12/29/2024 TCM in Dialysis Clinic [address] [place] [address], [facility] [address] [place] [address] Melissa Wiley NP 12/29/[address] [place] [address] [facility] [address] [place] [address] Meilssa Wiley NP End stage renal disease; Dependence [...] Date/Time Associated Diagnosis Comments HD KINETICS Routine 03/25/2025 POST CHEMISTRY Routine 03/25/2025 CHEMISTRY Routine 03/25/2025 HEMATOLOGY Routine 03/25/2025 HEMATOLOGY Routine 03/18/2025 HEMATOLOGY Routine 03/11/2025 HEMATOLOGY [...] 01/07/2025 CHEMISTRY Routine 12/31/2024 HEMATOLOGY Routine 12/31/2024 from Last 3 Months Results * HD KINETICS (03/25/2025) Only the most recent of3 resultswithin the time period is included. % Urea Reduction 79 65 - 80 % [facility] 03/25/2025 03/26/2025 11: 23 AM CDT Narrative Resulting Agency Comment Specimen source: Plasma us Chey Navas MD LAB BLOOD ORDERABLES Final Re sult [employer] See order comments or contact performing lab Unknown, [place] * (ABNORMAL) POST CHEMISTRY (03/25/2025) Only the most recent of3 resultswithin the time period is included. BUN Post Dialysis 5(L) 6 - 19 mg/dL [facility] 03/25/2025 03/26/2025 11: 23 AM CDT Narrative [facility] - 03/26/2025 Unless otherwise specified, test(s) performed at: [facility], [address] [place] [address] MARKETING COORDINATOR: Jose Luis France M.D. For any questions, please call customer service at FREQUENCY:MONTHLY Resulting Agency Comment Specimen source: Plasma Chey Navas MD LAB BLOOD ORDERABLES Final Re sult [employer] See order comments or contact performing lab Unknown, [place] * (ABNORMAL) HEMATOLOGY (03/25/2025) Only the most recent of13 resultswithin the time period is included. Neutrophils 58.2 40.0 - 75.0 % [facility] Lymphocytes Relative 24.1 19.0 - 48.0 % [facility] Monocytes 6.6 3.0 - 10.0 % [facility] Eosinophils Relative 5.1 0.0 - 7.0 % [facility] Basophils Relative 0.7 0.0 - 1.5 % [facility] MARYBEL 5.3(H) 0.0 - 4.0 % [facility] WBC 4.09(L) 4.80 - 10.80 1000/mcL [facility] RBC 2.76(L) 4.20 - 5.40 mill/mcL [facility] Hematocrit 26.8(L) 37.0 - 47.0 % [facility] MCV 97 80 - 100 fl [facility] MCH 31.6(H) 27.0 - 31.0 pg [facility] MCHC 32.6 30.0 - 36.0 g/dL [facility] RDW 14.1 11.5 - 14.5 % [facility] Hemoglobin 8.7(L) 12.0 - 16.0 g/dL [facility] Hemoglobin x 3 26.1(L) 36.0 - 48.0 % [facility] Platelets 133 130 - 400 1000/mcL [facility] 03/25/2025 03/26/2025 10: 17 AM CDT Narrative [facility] - 03/26/2025 Unless otherwise specified, test(s) performed at: [facility], [address] [place] [address] MARKETING COORDINATOR: Jose Luis France M.D. For any questions, please call customer service at FREQUENCY:MONTHLY Resulting Agency Comment Specimen source: Blood Chey Navas MD LAB BLOOD ORDERABLES Final Re sult [facility] See order comments or contact performing lab Unknown, [place] * (ABNORMAL) [facility] (03/25/2025) Only the most recent of6 resultswithin the time period is included. BUN 24(H) 6 - 19 mg/dL [facility] Creatinine 6.27(H) 0.60 - 1.30 mg/dL [facility] BUN/Creatinine Ratio 3.8(L) 10.0 - 20.0 [facility] Sodium 135(L) 136 - 145 mEq/L [facility] Potassium 4.9 3.5 - 5.1 mEq/L [facility] Chloride 96 96 - 108 mEq/L [facility] Bicarbonate (CO2) 28 22 - 29 mEq/L [facility] Calcium 8.4 8.4 - 10.2 mg/dL [facility] Corrected Calcium 8.9 8.4 - 10.2 mg/dL [facility] Comment: Corrected Calcium is not equivalent to measured Ionized Calcium. Phosphorus 5.2(H) 2.6 - 4.5 mg/dL [facility] Calcium Phosphorus Product 44 0 - 54 [facility] Calcium Phosporus Product, Cor 46 0 - 54 [facility] Total Protein 6.5 6.0 - 8.5 g/dL [facility] Albumin 3.4(L) 3.5 - 5.2 g/dL [facility] Globulin, Total 3.1 2.0 - 4.0 g/dL [facility] A/G Ratio 1.1 1.0 - 2.0 [facility] Glucose 177(H) 70 - 100 mg/dL [facility] Iron 118 30 - 160 mcg/dL [facility] UIBC 106(L) 155 - 355 mcg/dL [facility] TIBC 224 185 - 515 mcg/dL [facility] Iron Saturation (TSat) 53 20 - 55 % [facility] 03/25/2025 03/26/2025 10: 36 AM CDT Narrative [facility] - 03/26/2025 Unless otherwise specified, test(s) performed at: [facility], [address] [place] [address] MARKETING COORDINATOR: Jose Luis France M.D. For any questions, please call customer service at FREQUENCY:MONTHLY Resulting Agency Comment Specimen source: Serum Chey Navas MD LAB BLOOD ORDERABLES Final Re sult Performing Organization Address [facility] de Phone Number [facility] See order comments or contact performing lab Unknown, [place] * (ABNORMAL) SPECIAL CHEMISTRY (03/02/2025) [facility] Hemoglobin A1C 6.5(H) 4.8 - 5.9 % [facility] 03/02/2025 03/03/2025 11: 04 AM CDT Narrative Resulting Agency Comment Specimen source: Blood us Chey Navas MD LAB BLOOD BANK TEST ORDERABLE S Final Result Performing Organization Address [facility] de Phone Number [employer] [facility] See order comments or contact performing lab Unknown, [place] * IMMUNO CHEMISTRY (03/02/2025) [facility] Hepatitis C Antibody Nonreactive Nonreactive [facility] Comment: No HCV antibody detected. The above test result was obtained using Siemens Frontoaur XP chemiluminescent method. Results obtained with different assay methods or kits cannot be used interchangeably. S/CO Ratio 0.03 0.00 - 0.79 [facility] Comment: s/co ratio Interpretation Supplemental testing <0.80 Nonreactive No further testing required. 0.80-0.99 Equivocal HCV RNA Quantitative Real-Time PCR is recommended. 1.00->11.00 Reactive HCV RNA Quantitative Real-Time PCR is recommended to distinguish active from resolved cases. 03/02/2025 03/03/2025 11: 29 AM CDT Narrative [facility] - 03/03/2025 Unless otherwise specified, test(s) performed at: [facility], [address] [place] [address] MARKETING COORDINATOR: Jose Luis France M.D. For any questions, please call customer service at FREQUENCY:MONTHLY Resulting Agency Comment Specimen source: Serum us Chey Navas MD LAB BLOOD ORDERABLES Final Re sult Performing Organization Address [facility] Co de Phone Number [facility] See order comments or contact performing lab Unknown, [place] * TRACE ELEMENTS (03/02/2025) [facility] Aluminum 5 0 - 10 mcg/L [facility] Comment: This test was developed and its performance characteristics determined by [facility]. It has not been cleared or approved by the FDA. The laboratory is regulated under CLIA as qualified to perform high complexity testing. This test is used for clinical purposes. It should not be regarded as investigational or for research. 03/02/2025 03/03/2025 10: 54 AM CDT Narrative [facility] - 03/03/2025 Unless otherwise specified, test(s) performed at: [facility], [address] [place] [address] MARKETING COORDINATOR: Jose Luis France M.D. For any questions, please call customer service at FREQUENCY:MONTHLY Resulting Agency Comment Specimen source: Serum Chey Navas MD LAB BLOOD ORDERABLES Final Re sult [employer] [facility] See order comments or contact performing lab Unknown, [place] * [facility] Results (03/02/2025) Only the most recent of2 resultswithin the time period is included. eKt/V (Tattersall) 1.53 [facility] spKt/V (Daugirdas II) 1.80 [facility] eKdrt/V 1.50 [facility] eNPCR 0.77 [facility] Center eKt/V Gotch 1.50 Knowledg e Center WSTDKT/V 1.7 Knowledge Center spKt/V Gotch 1.78 [facility] ge Center nPCR_HD 0.81 Knowledge Center PCR 39.82 [facility] Center 03/02/2025 03/02/2025 [facility] Ordering Provider LAB BLOOD ORDERABLES Final Result [facility] Contact Performing lab Unknown, [place] from Last 3 Months Insurance Medicaid [place] ([id number]) Medicare Care Teams Ribbon Blocker Relationship Specialty Start Date End Date Alexis Garcia MD [address] [place] [address] PCP - General Family Medicine 04/16/22
--- OUTSIDE RECORDS SUMMARY | 2025-03-28 03:11 | XMS_ITS | Encounter Summary ---
Author Organization [facility] Address [address] [place] [address] Phone Care Team Providers Care Warehouse Specialist Name Role Phone Alexis Garcia MD Primary Care Provider [phone] Encounter Details Date Type Department Care Team (Late st Contact Info) Description 12/29/2024 TCM in Dialysis Clinic [facility] [address] [place] [address] Yann Lozano NP [address] [place] [address] Social History Tobacco Use Types [...] CDT Patient: Donita Aguilar : 1985 C: [facility] Note Type: Dialysis TCM Service Date: 12/29/2024 The patient was seen for a qfok-po-qtqx visit as part of Transitional Care Management services. Attending Computer Systems Hardware Analyst: MACHO JOHANSEN Dialysis Location: [facility] Schedule: Shift: 2 INTERACTIVE CONTACT This adal-lz-dtuo visit occurred within 2 business days of the patient?s discharge. 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 [facility] Allergies Allergen: acetaminophen Reaction: Nausea/Vomiting TREATMENT [...] to follow with cardiology, pcp, pulmonology and senior web developer as noted on discharge. EDUCATION Education [...] or secondary infection VISIT DIAGNOSES CPT Code 17764 - High complexity, seen within 7 days of discharge. I20.9 Angina pectoris (HCC) COMMENTS: Verified she has nitroglycerin on hand at home: reviewed appropriate usage. Instructed to call cardiology for follow up appointment K76.0 Fatty (change of) liver, not elsewhere classified COMMENTS: Newly dx on imaging. Per hospital records, has been referred to senior web developer. Monitor for liver dysfunction, assess for any needed support J18.9 Pneumonia, unspecified organism COMMENTS: Monitor for impaired perfusion, fever/chills, increased SOB. If symptoms present, send for CXray. 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 Left main has luminal irregularity with distal 10% stenosis. Cardiology recommended medical management. Negative for angina on assessment today Reviewed symptoms, usage of nitro: instructed to call cardiology for follow up appt. I28.670 Atherosclerosis of other coronary artery bypass graft(s) [...] on filedocumented in this encounter Care Teams Warehouse Specialist Relationship Specialty Start Date End Date Alexis Garcia MD [address] [place] [address] PCP - General Family Medicine 04/16/22 documented as of this encounter
--- OUTSIDE RECORDS SUMMARY | 2025-03-28 03:12 | XMS_ITS | Encounter Summary ---
Author Organization [facility] Address [address] [place] [address] Care Team Providers Care Quill Skinner Name Role Phone Shravan Jones DO Primary Care Provider [phone] Encounter Details Date Type Department Care Team (Latest Contact Info) Description 05/14/2003 Outpatient [facility] Oral and Maxillo Surgery[address] [place] [address] Jimmy Tineo, CLIVES NO ADDRESS ON FILE UNSPEC DENTAL CARIES (Primary Dx); TOOTH POSITION ANOMALY Social History Tobacco Use Types Packs/Day Years Used Date Smoking Tobacco: Never Assessed Comments Unknown Sex and Gender Information Value Date Recorded Sex Assigned at Not on file Legal Sex Female 4:38 AM MASTIC MAN Gender Identity Not on file Sexual Orientation Not on file documented as of this encounter Plan of Treatment Not on file documented as of this encounter Visit Diagnoses Diagnosis Unspecified dental caries- Primary 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
--- OUTSIDE RECORDS SUMMARY | 2025-03-28 03:12 | XMS_ITS | Encounter Summary ---
Author Organization [facility] Address [address] [place] [address] Care Team Providers Care Biodiesel Production Technician Name Role Phone Shravan Jones DO Primary Care Provider Encounter Details Date Type Department Care Team (Late st Contact Info) Description 01/02/2017 Lab Requisition [facility] [address] [place] [address] Izabela Diamond MD NO ADDRESS ON FILE Social History Tobacco Use Types Packs/Day Years Used Date Smoking Tobacco: Every Day Cigarettes Comments:pt lethargic Comments Unknown Sex and Gender Information Value Date Recorded Sex Assigned at Not on file Legal Sex Female 4:38 AM PROGRAM RESEARCH SPECIALIST Gender Identity Not on file Sexual [...] - 145 mmol/L 01/02/2017 6:07 AM CDT [email or web address] POTASSIUM 4.3 3.5 - 5.1 mmol/L 01/02/2017 6:07 AM CDT [facility] CHLORIDE 101 98 - 107 mmol/L 01/02/2017 6:07 AM T [facility] CO2 27 21 - 32 mmol/L 01/02/2017 6:07 AM T [facility] CALCIUM 9.7 8.4 - 10.1 mg/dL 01/02/2017 6:07 AM T [facility] BUN 16 7 - 17 mg/dL 01/02/2017 6:07 AM [facility] CREATININE 0.87 0.55 - 1.02 mg/dL 01/02/2017 6:07 AM T [facility] GLUCOSE 122(H) 74 - 106 mg/dL 01/02/2017 6:07 AM [facility] GFR >60 >=60 mL/min/1.7 3 sq meter 01/02/2017 6:07 AM T [facility] Comment: eGFR [...] 3 sq meter 01/02/2017 6:07 AM CDT [facility] ANION GAP 10 4 - 30 mmol/L 01/02/2017 6:07 AM T [facility] Blood 01/02/2017 3:00 AM CDT 01/02/2017 5:35 AM CDT us Izabela Diamond MD CHEMISTRY ORDERABLES Final Res ult [facility] CLIA# [id number] [address] [place] [address] * (ABNORMAL) CBC WITH DIFFERENTIAL (01/02/2017 3:00 AM CDT) [facility] WBC 10.4 4.5 - 11.0 K/uL 01/02/2017 5:44 AM [facility] RBC 4.30 4.20 - 5.40 M/uL 01/02/2017 5:44 AM [facility] HEMOGLOBIN 10.4(L) 12.0 - 16.0 g/dL 01/02/2017 5:44 AM [facility] HEMATOCRIT 34.5(L) 36.0 - 46.0 % 01/02/2017 5:44 AM [facility] MCV 80.2(L) 84.0 - 103.0 fL 01/02/2017 5:44 AM [facility] MCH 24.2(L) 27.0 - 34.0 pg 01/02/2017 5:44 AM [facility] MCHC 30.1 30.0 - 35.0 g/dL 01/02/2017 5:44 AM [facility] RDW 17.4(H) 11.0 - 14.5 % 01/02/2017 5:44 AM [facility] RDW-STDEV 51.1 37.0 - 54.0 fL 01/02/2017 5:44 AM [facility] PLATELETS 764(H) 140 - 440 K/uL 01/02/2017 5:44 AM [facility] MPV 9.2 8.9 - 12.8 fL 01/02/2017 5:44 AM [facility] NEUTROPHILS 56 42 - 75 % 01/02/2017 5:44 AM [facility] LYMPHOCYTES 27 24 - 44 % 01/02/2017 5:44 AM [facility] MONOCYTES 8 2 - 10 % 01/02/2017 5:44 AM [facility] EOSINOPHILS 7 0 - 7 % 01/02/2017 5:44 AM [facility] BASOPHILS 1 0 - 1 % 01/02/2017 5:44 AM [facility] IMMATURE GRANULOCYTES 1 0 - 2 % 01/02/2017 5:44 AM CDT [facility] NEUTROPHIL ABSOLUTE 5.79 2.00 - 8.00 K/uL 01/02/2017 5:44 AM CDT [facility] LYMPHOCYTE ABSOLUTE 2.78 1.20 - 4.00 K/uL 01/02/2017 5:44 AM CDT [facility] MONOCYTE ABSOLUTE 0.85(H) 0.10 - 0.60 K/uL 01/02/2017 5:44 AM CDT [facility] EOSINOPHIL ABSOLUTE 0.76(H) 0.00 - 0.70 K/uL 01/02/2017 5:44 AM CDT [facility] BASOPHILS ABSOLUTE 0.10 0.00 - 0.20 K/uL 01/02/2017 5:44 AM CDT [facility] IMMATURE GRANULOCYTES ABSOLUTE 0.09 0.00 - 0.10 K/uL 01/02/2017 5:44 AM CDT [facility] Blood 01/02/2017 3:00 AM CDT 01/02/2017 5:35 AM CDT us Izabela Diamond MD HEMATOLOGY ORDERABLES Final Re sult [facility] CLIA# [id number] [facility] [place] [address] documented in this encounter Visit Diagnoses Not on filedocumented in this encounter Care Teams Biodiesel Production Technician Relationship Specialty Start Date End Date Shravan Jones DO [address] [address] PCP - General Family Practice 12/04/16 documented as of this encounter
--- OUTSIDE RECORDS SUMMARY | 2025-03-28 03:12 | XMS_ITS | Encounter Summary ---
Author Organization [facility] Address [address] [place] [address] Phone Care Team Providers Care Shrub Grower Name Role Phone Alexis Garcia MD Primary Care Provider [phone] Encounter Details Date Type Department Care Team (Late st Contact Info) Description 04/16/2022 Orders Only [facility] [address] [place] [address] Chronic kidney disease, Stage IV [...] (severe) documented in this encounter Care Teams Shrub Grower Relationship Specialty Start Date End Date Alexis Garcia MD [address] [place] [address] PCP - General Family Medicine 04/16/22 documented as of this encounter
--- OUTSIDE RECORDS SUMMARY | 2025-03-28 03:12 | XMS_ITS | Encounter Summary ---
Author Organization [facility], [facility] Address [address] [place] [address] Phone Care Team Providers Care Foreign Exchange Position Clerk Name Role Phone Alexis Garcia MD Primary Care Provider [phone] Encounter Details Date Type Department Care Team (Late st Contact Info) Description 03/25/2025 Orders Only [facility] [address] [place] [address] Chey aNvas MD [address] [place] [address] Social History Tobacco Use Types [...] KINETICS Routine 03/25/2025 POST CHEMISTRY Routine 03/25/2025 HEMATOLOGY Routine 03/25/2025 CHEMISTRY Routine 03/25/2025 documented in this encounter Results * HD KINETICS (03/25/2025) % Urea Reduction 79 65 - 80 % [facility] 03/25/2025 03/26/2025 11: 23 AM CDT Narrative Resulting Agency Comment Specimen source: Plasma us Chey Navas MD LAB BLOOD ORDERABLES Final Re sult Performing Organization Address [facility] Co de Phone Number [facility] See order comments or contact performing lab Unknown, [place] * (ABNORMAL) POST CHEMISTRY (03/25/2025) BUN Post Dialysis 5(L) 6 - 19 mg/dL [facility] 03/25/2025 03/26/2025 11: 23 AM CDT Narrative [facility] - 03/26/2025 Unless otherwise specified, test(s) performed at: [facility], [address] [place] [address] DITCH WORKER: Jose Luis France M.D. For any questions, please call customer service at FREQUENCY:MONTHLY Resulting Agency Comment Specimen source: Plasma us Chey Navas MD LAB BLOOD ORDERABLES Final Re sult Performing Organization Address [facility] de Phone Number [facility] See order comments or contact performing lab Unknown, [place] * (ABNORMAL) [facility] Chemistry (03/25/2025) BUN 24(H) 6 - 19 mg/dL [facility] [...] 03/26/2025 Unless otherwise specified, test(s) performed at: [facility], [address] [place] [address] DITCH WORKER: Jose Luis France M.D. For any questions, please call customer service at FREQUENCY:MONTHLY Resulting Agency Comment Specimen source: Serum Chey Navas MD LAB BLOOD ORDERABLES Final Re sult [facility] See order comments or contact performing lab Unknown, [place] * (ABNORMAL) HEMATOLOGY (03/25/2025) Neutrophils 58.2 40.0 - 75.0 % [facility] [...] 03/25/2025 03/26/2025 10: 17 AM CDT Narrative [facility] - 03/26/2025 Unless otherwise specified, test(s) performed at: [facility], [address] [place] [address] DITCH WORKER: Jose Luis France M.D. For any questions, please call customer service at FREQUENCY:MONTHLY Resulting Agency Comment Specimen source: Blood us Chey Navas MD LAB BLOOD ORDERABLES Final Re sult [facility] See order comments or contact performing lab Unknown, [place] documented in this encounter Visit Diagnoses Not on filedocumented in this encounter Care Teams Foreign Exchange Position Clerk Relationship Specialty Start Date End Date Alexis Garcia MD [address] [place] [address] PCP - General Family Medicine 04/16/22 documented as of this encounter
--- OUTSIDE RECORDS SUMMARY | 2025-03-28 03:12 | XMS_ITS | Encounter Summary ---
Author Organization [facility] Address [address] [place] [address] Care Team Providers Care Cake Froster Name Role Phone Shravan Jones DO Primary Care Provider Encounter Details Date Type Department Care Team (Late st Contact Info) Description 12/31/2016 Lab Requisition [facility] Laboratory Services [address] [place] [address] David Ortega MD [address] [place] [address] Social History Tobacco Use Types Packs/Day Years Used Date Smoking Tobacco: Every Day Cigarettes Comments:pt lethargic Comments Unknown Sex and Gender Information Value Date Recorded Sex Assigned at Not on file Legal Sex Female 4:38 AM PRINT BINDING AND FINISHING WORKER Gender Identity Not on file Sexual [...] - 2.6 mg/dL 12/31/2016 5:52 AM T [facility] Blood 12/31/2016 2:26 AM CDT 12/31/2016 5:17 AM CDT [facility] - 12/31/2016 5:52 AM CDT Due to Head Sawyer Automatic update, MG+ reference range has changed from 1.8 - 2.4 mg/dL to the new reference range of 1.6 - 2.6 mg/dL. This will have limited patient impact. us David Ortega MD CHEMISTRY ORDERABLES Final Res ult [facility] CLIA# [id number] [address] [place] [place] [address] * (ABNORMAL) COMPREHENSIVE METABOLIC PANEL (12/31/2016 2:26 AM CDT) SODIUM 138 136 - 145 mmol/L 12/31/2016 5:52 AM CDT [facility] POTASSIUM 4.7 3.5 - 5.1 mmol/L 12/31/2016 5:52 AM [facility] CHLORIDE 102 98 - 107 mmol/L 12/31/2016 5:52 AM T [facility] CO2 27 21 - 32 mmol/L 12/31/2016 5:52 AM T [facility] CALCIUM 9.1 8.4 - 10.1 mg/dL 12/31/2016 5:52 AM T [facility] BUN 17 7 - 17 mg/dL 12/31/2016 5:52 AM T [facility] CREATININE 0.87 0.55 - 1.02 mg/dL 12/31/2016 5:52 AM T [facility] GLUCOSE 214(H) 74 - 106 mg/dL 12/31/2016 5:52 AM T [facility] TOTAL PROTEIN 8.2 6.4 - 8.2 g/dL 12/31/2016 5:52 AM T [facility] ALBUMIN 1.9(L) 3.4 - 5.0 g/dL 12/31/2016 5:52 AM CDT [facility] BILIRUBIN TOTAL 0.2 0.2 - 1.0 mg/dL 12/31/2016 5:52 AM CDT [facility] ALKALINE PHOSPHATASE 95 25 - 100 U/L 12/31/2016 5:52 AM CDT [facility] AST 9(L) 15 - 37 U/L 12/31/2016 5:52 AM CDT [facility] ALT 14 13 - 61 U/L 12/31/2016 5:52 AM CDT [facility] GFR >60 >=60 mL/min/1.7 3 sq meter 12/31/2016 5:52 AM T [facility] Comment: eGFR has not been validated for [...] 3 sq meter 12/31/2016 5:52 AM CDT [facility] ANION GAP 9 4 - 30 mmol/L 12/31/2016 5:52 AM T [facility] Blood 12/31/2016 2:26 AM CDT 12/31/2016 5:17 AM CDT us David Ortega MD CHEMISTRY ORDERABLES Final Res ult [facility] CLIA# [id number] [address] [place] [address] * (ABNORMAL) CBC WITH DIFFERENTIAL (12/31/2016 2:26 AM CDT) WBC 13.7(H) 4.5 - 11.0 K/uL 12/31/2016 6:32 AM [facility] RBC 3.66(L) 4.20 - 5.40 M/uL 12/31/2016 6:32 AM [facility] HEMOGLOBIN 9.3(L) 12.0 - 16.0 g/dL 12/31/2016 6:32 AM [facility] [employer] [facility] HEMATOCRIT 29.6(L) 36.0 - 46.0 % 12/31/2016 6:32 AM [facility] [employer] [facility] MCV 80.9(L) 84.0 - 103.0 fL 12/31/2016 6:32 AM [facility] [employer] [facility] MCH 25.4(L) 27.0 - 34.0 pg 12/31/2016 6:32 AM [facility] MCHC 31.4 30.0 - 35.0 g/dL 12/31/2016 6:32 AM [facility] [employer] [facility] RDW 17.4(H) 11.0 - 14.5 % 12/31/2016 6:32 AM [facility] [employer] [facility] RDW-STDEV 52.1 37.0 - 54.0 fL 12/31/2016 6:32 AM [facility] [employer] [facility] PLATELETS 767(H) 140 - 440 K/uL 12/31/2016 6:32 AM [facility] [employer] [facility] MPV 9.0 8.9 - 12.8 fL 12/31/2016 6:32 AM [facility] [employer] [facility] NEUTROPHILS 68 42 - 75 % 12/31/2016 6:32 AM [facility] [employer] [facility] LYMPHOCYTES 17(L) 24 - 44 % 12/31/2016 6:32 AM [facility] [employer] [facility] MONOCYTES 8 2 - 10 % 12/31/2016 6:32 AM [facility] [employer] [facility] EOSINOPHILS 6 0 - 7 % 12/31/2016 6:32 AM [facility] [employer] [facility] BASOPHILS 0 0 - 1 % 12/31/2016 6:32 AM [facility] [employer] [facility] IMMATURE GRANULOCYTES 1 0 - 2 % 12/31/2016 6:32 AM CDT [facility] NEUTROPHIL ABSOLUTE 9.26(H) 2.00 - 8.00 K/uL 12/31/2016 6:32 AM CDT [facility] LYMPHOCYTE ABSOLUTE 2.28 1.20 - 4.00 K/uL 12/31/2016 6:32 AM CDT [facility] MONOCYTE ABSOLUTE 1.07(H) 0.10 - 0.60 K/uL 12/31/2016 6:32 AM CDT [facility] EOSINOPHIL ABSOLUTE 0.82(H) 0.00 - 0.70 K/uL 12/31/2016 6:32 AM CDT [facility] BASOPHILS ABSOLUTE 0.06 0.00 - 0.20 K/uL 12/31/2016 6:32 AM CDT [facility] IMMATURE GRANULOCYTES ABSOLUTE 0.17(H) 0.00 - 0.10 K/uL 12/31/2016 6:32 AM CDT [facility] Blood 12/31/2016 2:26 AM CDT 12/31/2016 5:17 AM CDT Narrative [facility] - 12/31/2016 6:32 AM CDT Smear reviewed us David Ortega MD HEMATOLOGY ORDERABLES Final Re sult [facility] CLIA# [id number] [address] [place] [address] documented in this encounter Visit Diagnoses Not on filedocumented in this encounter Care Teams Cake Froster Relationship Specialty Start Date End Date Shravan Jones DO [address] [address] PCP - General Family Practice 12/04/16 documented as of this encounter
--- OUTSIDE RECORDS SUMMARY | 2025-03-28 03:12 | XMS_ITS | Encounter Summary ---
Author Organization [facility] Address [address] [place] [address] Care Team Providers Care Ceo And President Name Role Phone Shravan Jones DO Primary Care Provider [phone] Reason for Visit * Reason Onset Date Comments Appointment Notification 11/05/2023 Encounter Details Date Type Department Care Team (Late st Contact Info) Description 11/05/2023 Telephone [facility] [address] [place] [address] Janell Beauchamp MD [address] [place] [address] Appointment Notification Social History Tobacco Use Types Packs/Day Years Used Date Smoking Tobacco: Every Day Comments:Quit smoking: pt le thargic Social Connections Answer Date Recorded In a typical week, how many times do you talk on the telephone with family, friends, or neighbors? Never 09/22/19 24 Frequency of Social Gatherings with Friends and Family Not on file 09/22/2023 Attends Taoism Services Not on file 09/21 Active Member [...] on file Legal Sex Female 3:34 PM CYLINDER DEVALVER Gender Identity Not on file Sexual Orientation Not on file documented as of this encounter Miscellaneous Notes * Telephone Encounter - Patrica Barney - 11/05/2023 12:07 PM CDT Janell (Provider) MESSAGE Pt needs to cancel appt on 11/07 and would like to resched. For 11/25 as she has other appts in town that day. Please call pt to reschedule. [facility] Welding Machine Operator [employer] Arc: Patrica Barney documented in this encounter Plan of Treatment Upcoming Encounters Date Type Department Care Team (Late st Contact Info) Description 05/19/2025 9:30 AM CYLINDER DEVALVER Office [facility] [address] [address] Abel Menon DO [address] [phone] documented as of this encounter Visit Diagnoses Not on filedocumented in this encounter Additional Health Concerns Infection Onset Date Last Indicated Resolved Time R/O C. diff 07/06/2024 07/06/2024 07/06/2024 8:35 AM CYLINDER DEVALVER documented as of this encounter Care Teams Ceo And President Relationship Specialty Start Date End Date Shravan Jones DO [address] [place] [phone] PCP - General Family Practice 12/04/16 documented as of this encounter
--- OUTSIDE RECORDS SUMMARY | 2025-03-28 03:12 | XMS_ITS | Encounter Summary ---
Author Organization [facility] Address [address] [place] [address] Care Team Providers Care Traveling Passenger Agent Name Role Phone Shravan Jones DO Primary Care Provider [phone] Encounter Details Date Type Department Care Team (Late st Contact Info) Description 01/07/2017 Lab Requisition [facility] Laboratory Services [address] [place] [address] Izabela Diamond MD NO ADDRESS ON FILE Social History Tobacco Use Types Packs/Day Years Used Date Smoking Tobacco: Every Day Cigarettes Comments:pt lethargic Comments Unknown Sex and Gender Information Value Date Recorded Sex Assigned at Not on file Legal Sex Female 4:38 AM SENSOR SPECIALIST Gender Identity Not on file Sexual [...] CDT [facility] Blood 01/07/2017 2:23 AM CDT 01/07/2017 5:01 AM CDT Izabela Diamond MD CHEMISTRY ORDERABLES Final Res ult Performing Organization Address City/[facility]/ZIP Co de Phone Number [facility] CLIA# [id number] [address] [place] [address] * (ABNORMAL) C-REACTIVE PROTEIN (01/07/2017 2:23 AM CDT) CRP 16.6(H) 0.0 - 2.9 mg/L 01/07/2017 5:27 AM CDT [facility] Blood 01/07/2017 2:23 AM CDT 01/07/2017 5:01 AM CDT Izabela Diamond MD CHEMISTRY ORDERABLES Final Res ult Performing Organization Address [facility] Co de Phone Number [facility] CLIA# [id number] [address] [place] [address] * (ABNORMAL) BASIC METABOLIC PANEL (01/07/2017 2:23 AM CDT) SODIUM 139 136 - 145 mmol/L 01/07/2017 5:27 AM CDT [facility] [employer] [facility] POTASSIUM 4.1 3.5 - 5.1 mmol/L 01/07/2017 5:27 AM CDT [facility] [employer] [facility] CHLORIDE 104 98 - 107 mmol/L 01/07/2017 5:27 AM CDT [facility] [employer] [facility] CO2 26 21 - 32 mmol/L 01/07/2017 5:27 AM CDT [facility] [employer] [facility] CALCIUM 9.1 8.4 - 10.1 mg/dL 01/07/2017 5:27 AM CDT [facility] [employer] [facility] BUN 14 7 - 17 mg/dL 01/07/2017 5:27 AM CDT [facility] CREATININE 0.82 0.55 - 1.02 mg/dL 01/07/2017 5:27 AM T [facility] GLUCOSE 274(H) 74 - 106 mg/dL 01/07/2017 5:27 AM T [facility] GFR >60 >=60 mL/min/1.7 3 sq meter 01/07/2017 5:27 AM T [facility] Comment: eGFR [...] 3 sq meter 01/07/2017 5:27 AM T [facility] ANION GAP 9 4 - 30 mmol/L 01/07/2017 5:27 AM [facility] Blood 01/07/2017 2:23 AM CDT 01/07/2017 5:01 AM CDT us Izabela Diamond MD CHEMISTRY ORDERABLES Final Res ult [facility] CLIA# [id number] [address] [place] [address] * (ABNORMAL) CBC WITH DIFFERENTIAL (01/07/2017 2:23 AM CDT) WBC 9.3 4.5 - 11.0 K/uL 01/07/2017 5:27 AM CDT [facility] RBC 4.19(L) 4.20 - 5.40 M/uL 01/07/2017 5:27 AM CDT [facility] HEMOGLOBIN 10.3(L) 12.0 - 16.0 g/dL 01/07/2017 5:27 AM [facility] HEMATOCRIT 33.2(L) 36.0 - 46.0 % 01/07/2017 5:27 AM [facility] MCV 79.2(L) 84.0 - 103.0 fL 01/07/2017 5:27 AM [facility] MCH 24.6(L) 27.0 - 34.0 pg 01/07/2017 5:27 AM [facility] MCHC 31.0 30.0 - 35.0 g/dL 01/07/2017 5:27 AM [facility] RDW 17.2(H) 11.0 - 14.5 % 01/07/2017 5:27 AM [facility] RDW-STDEV 49.4 37.0 - 54.0 fL 01/07/2017 5:27 AM [facility] PLATELETS 545(H) 140 - 440 K/uL 01/07/2017 5:27 AM [facility] MPV 10.2 8.9 - 12.8 fL 01/07/2017 5:27 AM [facility] NEUTROPHILS 53 42 - 75 % 01/07/2017 5:27 AM [facility] LYMPHOCYTES 26 24 - 44 % 01/07/2017 5:27 AM [facility] MONOCYTES 9 2 - 10 % 01/07/2017 5:27 AM [facility] EOSINOPHILS 11(H) 0 - 7 % 01/07/2017 5:27 AM [facility] BASOPHILS 1 0 - 1 % 01/07/2017 5:27 AM [facility] IMMATURE GRANULOCYTES 0 0 - 2 % 01/07/2017 5:27 AM [facility] NEUTROPHIL ABSOLUTE 4.88 2.00 - 8.00 K/uL 01/07/2017 5:27 AM [facility] LYMPHOCYTE ABSOLUTE 2.45 1.20 - 4.00 K/uL 01/07/2017 5:27 AM [facility] MONOCYTE ABSOLUTE 0.79(H) 0.10 - 0.60 K/uL 01/07/2017 5:27 AM CDT [facility] EOSINOPHIL ABSOLUTE 1.01(H) 0.00 - 0.70 K/uL 01/07/2017 5:27 AM CDT [facility] BASOPHILS ABSOLUTE 0.11 0.00 - 0.20 K/uL 01/07/2017 5:27 AM CDT [facility] IMMATURE GRANULOCYTES ABSOLUTE 0.04 0.00 - 0.10 K/uL 01/07/2017 5:27 AM CDT [facility] Blood 01/07/2017 2:23 AM CDT 01/07/2017 5:01 AM CDT us Izabela Diamond MD HEMATOLOGY ORDERABLES Final Re sult [facility] CLIA# [id number] [address] [place] [address] documented in this encounter Visit Diagnoses Not on filedocumented in this encounter Care Teams Traveling Passenger Agent Relationship Specialty Start Date End Date Shravan Jones DO [address] [address] PCP - General Family Practice 12/04/16 documented as of this encounter
--- OUTSIDE RECORDS SUMMARY | 2025-03-28 03:12 | XMS_ITS | Encounter Summary ---
Author Organization [facility] Address [address] [place] [address] Care Team Providers Care Materials Planning Manager Name Role Phone Shravan Jones DO Primary Care Provider [phone] Encounter Details Date Type Department Care Team (Late st Contact Info) Description 12/12/2016 Nurse Only [facility] 4D Surgery Heart Lung [address] [place] [address] Stephenie Smith RN [address] [place] [address] Social History Tobacco Use Types Packs/Day Years Used Date Smoking Tobacco: Every Day Cigarettes Comments:pt lethargic Comments Unknown Sex and Gender Information Value Date Recorded Sex Assigned at Not on file Legal Sex Female 4:38 AM BELT BRANDER Gender Identity Not on file Sexual Orientation Not on file documented as of this encounter Plan of Treatment Not on file documented as of this encounter Visit Diagnoses Not on filedocumented in this encounter Care Teams Materials Planning Manager Relationship Specialty Start Date End Date Shravan Jones DO [address] [phone] PCP - General Family Practice 12/04/16 documented as of this encounter
--- OUTSIDE RECORDS SUMMARY | 2025-03-28 03:12 | XMS_ITS | Clinical Summary ---
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 Gender Identity Not on file Sexual Orientation [...] 10/11/1999, 09/06/1999 Medical Devices Implanted Type Area Grill Attendant Device Identifier Shelf Expiration Date Model / Serial / Lot Max tracy Flour [id number] - [id number] Implanted:Qty: 2 on 12/17/2016 by Deandre Alan MD at [facility] Biological Left: Lung [employer] 09/19/2019 [id number] / / [id number] Control Implant Funmi Procedures Procedure Name Priority Date/Time Associated Diagnosis Comments HEMOGLOBIN A1C Routine 01/09/2017 2:52 AM CDT from Last 3 Months or Most Recently Relevant to Health Maintenance Results * (ABNORMAL) HEMOGLOBIN A1C (01/09/2017 2:52 AM CDT) HEMOGLOBIN A1C 8.9(H) 4.0 - 6.0 % 01/09/2017 1:[address] [facility] EST. AVG GLUCOSE, A1C 209 mg/dL 01/09/2017 1:31 PM CDT [facility] Blood 01/09/2017 2:52 AM CDT 01/09/2017 6:53 AM CDT Narrative [facility] - 01/09/2017 1:31 PM CDT Test performed on [employer] instrumentation using HPLC methodology us Izabela Diamond MD CHEMISTRY ORDERABLES Final Res ult [facility] CLIA# [id number] [address] [place] [address] from Last 3 Months or Most Recently Relevant to [place] [address] [facility] MEDICAID Advance Directives For more information, please contact: [phone] * Full Code (Latest Code Status on File) Date Activated Date Inactivated Comments 12/17/2016 1:05 PM 12/27/2016 11:32 PM Care Teams Web Retailer Relationship Specialty Start Date End Date Shravan Jones DO [address] [address] PCP - General Family Practice 12/04/16
--- OUTSIDE RECORDS SUMMARY | 2025-03-28 03:12 | XMS_ITS | Clinical Summary ---
Author Organization Instagram Address [address] [facility] Attn: [place] [phone] Care Team Providers Care Autopsy Pathologist Name Role Phone Shravan Jones DO Primary [...] subcutaneous injection. Active naloxone (NARCAN) 4 mg/spray [place], Non-Aerosol EMERGENCY USE ONLY: Administer 1 spray [...] dialysis for ESRD ([facility]) Take 1 Tablet (5 mg) [...] troponin 09/22/2023 Coronary artery disease invo lving standing rock coronary artery of standing rock heart without angina pectoris 09/21/2023 End stage [...] STL ABSTRACTION Provider, Abstract 12/30/2024 Orders Only [facility] Gastroenterology[address] [address] Elizabeth Dougherty, HR GENERALIST Fatty liver (Primary Dx) from Last 3 [...] on file Legal Sex Female 3:34 PM 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 [place] [address] Abel Menon DO [address] [place] [address] Health Maintenance Due Date Last [...] 10/11/1999, 09/06/1999 Medical Devices Implanted Type Area Merchandise Pickup/Receiving Associate Device Identifier Shelf Expiration Date Model / Serial / Lot Max dailym Flour [id number] - [id number] Implanted:Qty : 2 on 12/17/2016 by Deandre Alan MD Biological Left: Lung CR BARD- DAVOL INC 09/19/2019 [id number] / / [id number] Cath Dialysis Glidepath 14.5fr 24cm Std [id number] - [id number] Implanted:Qty : 1 on 03/18/2024 by Asif Mcclellan MD at [facility] Catheter Right: Chest BARD ANGEL VASC 09/21/2025 [id number] / / [id number] Clip Ligating Horizon Red [id number] [place] [facility] [place] [id number] Implanted:Qty : 1 on 08/10/2024 by Chato Fitch MD at [facility] Clip Left: Arm TELE[employer] INC [id number] 05/16/2029 [id number] / / [id number] Clip Ligating Horizon Med Ti 975834 - Csc - [id number] Implanted:Qty : 1 on 08/10/2024 by Chato Fitch MD at [facility] Clip Left: Arm TELEFLEX- WECK CLOSURE SYS [id number] 03/31/2029 [id number] / / [id number] Frame Runner Ligaclip Sml Mcs20 - [id number] Implanted:Qty : 1 on 08/10/2024 by Chato Fitch MD at [facility] Clip Left: Arm J&J- [employer] [id number] 03/23/2029 MCS20 / / [id number] Closure Perclose Prostyle Sut Mediate 97530-23 - [id number] Implanted:Qty : 1 on 09/24/2023 by Janell Beauchamp MD at [facility] Closure Device N/A: Groin LOVE- VASC DEVICE [id number] 06/23/2025 29301-17 / / [id number] Closure Perclose Prostyle Sut Mediate 29408-73 - [id number] Implanted:Qty : 1 on 10/24/2023 by Janell Beauchamp MD at [facility] Closure Device Right: Groin LOVE- VASC DEVICE [id number] 07/24/2025 75780-43 / / [id number] Oil Slc 8.5ml [id number] - Sgtin:[id number] Implanted:Qty : 1 on 06/23/2024 by Janey Carrera MD at [facility] Eye Right: Eye [employer] [employer] 12/21/2026 [id number] / [id number] / [id number] Graft Vasc Propaten 4-2mjb81im U785652f - [id number] Implanted:Qty : 1 on 08/10/2024 by Chato Fitch MD at [facility] Graft Left: Arm [employer] [id number] 05/21/2027 [id number] / [id number] / Agent Hemostat Surgicel 2x3in 1952s - [id number] Implanted:Qty : 1 on 08/10/2024 by Chato Fitch MD at [facility] Hemostatic Left: Arm J&J- ETHICON INC [id number] 12/21/20281952S / / [id number] Hemostatic Surgiflo 8ml W/ Thrombin 2994 - [id number] Implanted:Qty : 1 on 08/10/2024 by Chato Fitch MD at [facility] Hemostatic Left: Arm J&J- ETHICON INC [id number] 10/21/2025 2994 / / [id number] Agent Hemostat Surgicel 2x3in 1952s - [id number] Implanted:Qty : 1 on 08/10/2024 by Chato Fitch MD at [facility] Hemostatic Left: Arm J&J- ETHICON INC [id number] 12/21/20281952S / / [id number] Stent Synergy Xd 3.0x48mm Evrlms Elut [id number] - [id number] Implanted:Qty : 1 on 09/24/2023 by Janell Beauchamp MD at [facility] Stent N/A: Coronary BOSTON SCI GENEV[employer]EVE [id number] 03/31/2025 [id number] 300 / / [id number] Stent Synergy Xd 2.66t23ds Evrlms Elut [id number] 0 - [id number] Implanted:Qty : 1 on 10/24/2023 by Janell Beauchamp MD at [facility] Stent Left: Coronary [employer] [id number] 08/19/2024 [id number] 220 / / [id number] Control Implant Funmi Procedures Procedure Name Priority Date/Time Associated Diagnosis Comments LIPID PANEL Routine 09/21/2023 6:47 PM CDT HEMOGLOBIN A1C Routine 09/21/2023 6:46 PM CDT from Last 3 Months or Most Recently Relevant to Health Maintenance Results * (ABNORMAL) LIPID PANEL (09/21/2023 6:47 PM CDT) [facility] CHOLESTEROL 96 <200 mg/dL 09/21/2023 10:29 PM CDT [facility] TRIGLYCERIDE 164(H) <150 mg/dL 09/21/2023 10:29 PM CDT [facility] HDL 36(L) 40 - 59 mg/dL 09/21/2023 10:29 PM CDT [facility] LDL CALCULATED 27 <100 mg/dL 09/21/2023 10:29 PM CDT [facility] NON-HDL CHOLESTEROL 60 <130 mg/dL 09/21/2023 10:29 PM T [facility] Blood Venipuncture / Unknown 09/21/2023 6:47 PM CDT 09/21/2023 7:10 PM CDT Narrative [facility] - 09/21/2023 10:29 PM CDT [...] Lacy MD CHEMISTRY ORDERABLES Final R esult [facility] Drive Power [facility] CLIA # [id number] [address] [place], [place] [id number] * (ABNORMAL) HEMOGLOBIN A1C (09/21/2023 6:46 PM CDT) HEMOGLOBIN A1C 6.8(H) <=5.6 % 09/23/2023 9:24 AM CDT [facility] Drive Power [facility] EST. AVG GLUCOSE, A1C 148 mg/dL 09/23/2023 9:24 AM CDT [facility] Drive Power [facility] Blood Venipuncture / Unknown 09/21/2023 6:46 PM CDT 09/21/2023 7:08 PM CDT Narrative [facility] Drive Power [facility] - 09/23/2023 9:24 AM CDT HGB A1C INTERPRETATION NORMAL: <5.7% PRE-DIABETES: 5.7 - 6.4% DIABETES: 6.5% OR GREATER Luiz Lacy MD CHEMISTRY ORDERABLES Final R esult Performing Organization Address [facility] Co de Phone Number [facility] CLIA # [id number] [address] [address] from Last 3 Months or Most Recently Relevant to Health Maintenance Insurance [place] PART A [place] B Advance Directives For more information, please contact: [phone] * Full Code (Latest Code Status on File) Date Activated Date Inactivated Comments 10/24/2023 2:34 PM 10/25/2023 11:47 AM * Full Code Date Activated Date Inactivated Comments 10/24/2023 9:13 AM 10/24/2023 2:34 PM * Full Code Date Activated Date Inactivated Comments 09/24/2023 3:14 PM 09/25/2023 9:51 PM * Full Code Date Activated Date Inactivated Comments 09/21/2023 5:50 PM 09/24/2023 3:14 PM Care Teams Autopsy Pathologist Relationship Specialty Start Date End Date Shravan Jones DO [address] [address] PCP - General Family Practice 12/04/16
--- OUTSIDE RECORDS SUMMARY | 2025-03-28 03:12 | XMS_ITS | Encounter Summary ---
Author Organization [facility] Address [address] [place] [address] Care Team Providers Care Oil Field Caser Name Role Phone Shravan Jones DO Primary Care Provider Encounter Details Date Type Department Care Team (Late st Contact Info) Description 01/09/2017 Lab Requisition [facility] Laboratory Services [facility] [address] [place] [address] Izabela Diamond MD NO ADDRESS ON FILE Social History Tobacco Use Types Packs/Day Years Used Date Smoking Tobacco: Every Day Cigarettes Comments:pt lethargic Comments Unknown Sex and Gender Information Value Date Recorded Sex Assigned at Not on file 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 This will have limited patient impact. us Izabela Diamond MD CHEMISTRY ORDERABLES Final Res ult [facility] CLIA# [id number] [address] [place] [address] * (ABNORMAL) COMPREHENSIVE METABOLIC PANEL (01/09/2017 3:15 [...] Res ult [facility] CLIA# [id number] [address] [place] [address] * (ABNORMAL) CBC WITH DIFFERENTIAL (01/09/2017 3:15 AM CDT) WBC 8.7 4.5 - 11.0 K/uL 01/09/2017 5:20 AM [facility] RBC 4.63 4.20 - 5.40 M/uL 01/09/2017 5:20 AM [facility] HEMOGLOBIN 11.3(L) 12.0 - 16.0 g/dL 01/09/2017 5:20 AM [facility] HEMATOCRIT 36.8 36.0 - 46.0 % 01/09/2017 5:20 AM [facility] MCV 79.5(L) 84.0 - 103.0 fL 01/09/2017 5:20 AM [facility] MCH 24.4(L) 27.0 - 34.0 pg 01/09/2017 5:20 AM [facility] MCHC 30.7 30.0 - 35.0 g/dL 01/09/2017 5:20 AM [facility] RDW 17.3(H) 11.0 - 14.5 % 01/09/2017 5:20 AM [facility] RDW-STDEV 50.4 37.0 - 54.0 fL 01/09/2017 5:20 AM [facility] PLATELETS 463(H) 140 - 440 K/uL 01/09/2017 5:20 AM [facility] MPV 9.9 8.9 - 12.8 fL 01/09/2017 5:20 AM [facility] NEUTROPHILS 46 42 - 75 % 01/09/2017 5:20 AM [facility] LYMPHOCYTES 33 24 - 44 % 01/09/2017 5:20 AM [facility] MONOCYTES 8 2 - 10 % 01/09/2017 5:20 AM [facility] EOSINOPHILS 11(H) 0 - 7 % 01/09/2017 5:20 AM [facility] BASOPHILS 1 0 - 1 % 01/09/2017 5:20 AM [facility] IMMATURE GRANULOCYTES 0 0 - 2 % 01/09/2017 5:20 AM [facility] NEUTROPHIL ABSOLUTE 4.05 2.00 - 8.00 [...] Re sult [facility] CLIA# [id number] [address] [place] [address] * (ABNORMAL) HEMOGLOBIN A1C (01/09/2017 2:52 AM CDT) HEMOGLOBIN A1C 8.9(H) 4.0 - 6.0 % 01/09/2017 1:31 PM CDT [facility] EST. AVG GLUCOSE, A1C 209 mg/dL 01/09/2017 1:31 PM CDT [facility] Blood 01/09/2017 2:52 AM CDT 01/09/2017 6:53 AM CDT Narrative [facility] - 01/09/2017 1:31 PM CDT Test performed on Lumenpulse instrumentation using HPLC methodology us Izabela Diamond MD CHEMISTRY ORDERABLES Final Res ult [facility] CLIA# [id number] [address] [place] [address] documented in this encounter Visit Diagnoses Not on filedocumented in this encounter Care Teams Oil Field Caser Relationship Specialty Start Date End Date Shravan Jones DO [address] [address] PCP - General Family Practice 12/04/16 documented as of this encounter
--- OUTSIDE RECORDS SUMMARY | 2025-03-28 03:12 | XMS_ITS | Encounter Summary ---
Author Organization [facility] Address [address] [place] [address] Care Team Providers Care Brine Process Operator Name Role Phone Shravan Jones DO Primary Care Provider [phone] Encounter Details Date Type Department Care Team (Late st Contact Info) Description 01/07/2017 Lab Requisition [facility] Laboratory [facility] [address] [place] [address] David Ortega MD [address] [place] [address] Social History Tobacco Use Types Packs/Day Years Used Date Smoking Tobacco: Every Day Cigarettes Comments:pt lethargic Comments Unknown Sex and Gender Information Value Date Recorded Sex Assigned at Not on file 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 Stool STOOL SPECIMEN / Unknown 01/07/2017 1:54 PM CDT 01/07/2017 6:53 PM CDT Narrative [facility] [employer] [facility] - 01/07/2017 8:08 PM CDT This assay [...] MICROBIOLOGY - GENERAL ORDERAB LES Final Result [facility] [employer] [facility] CLIA# [id number] [address] [place] [address] documented in this encounter Visit Diagnoses Not on filedocumented in this encounter Care Teams Brine Process Operator Relationship Specialty Start Date End Date Shravan Jones DO [address] [address] PCP - General Family Practice 12/04/16 documented as of this encounter
--- OUTSIDE RECORDS SUMMARY | 2025-03-28 03:12 | XMS_ITS | Encounter Summary ---
Author Organization [facility] Address [address] [place] [address] Care Team Providers Care Assignment Officer Name Role Phone Shravan Jones DO Primary Care Provider Encounter Details Date Type Department Care Team (Late st Contact Info) Description 12/28/2016 Lab Requisition [facility] Laboratory Services [address] [place] [address] [place] [address] David Ortega MD [address] [place] [address] Social History Tobacco Use Types Packs/Day Years Used Date Smoking Tobacco: Every Day Cigarettes Comments:pt lethargic Comments Unknown Sex and Gender Information Value Date Recorded Sex Assigned at Not on file 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 Gender Identity Not on file Sexual [...] mg/dL 12/28/2016 5:42 AM CDT [facility] Blood Collection / Unknown 12/28/2016 2:39 AM CDT 12/28/2016 5:01 AM CDT David Ortega MD CHEMISTRY ORDERABLES Final Res ult Performing Organization Address [facility] Co de Phone Number [facility] CLIA# [id number] [address] [place] [id number] * MAGNESIUM LEVEL (12/28/2016 2:39 AM CDT) [facility] MAGNESIUM 1.6 1.6 - 2.6 mg/dL 12/28/2016 5:42 AM CDT [facility] Blood Collection / Unknown 12/28/2016 2:39 AM CDT 12/28/2016 5:01 AM CDT Narrative [facility] - 12/28/2016 5:42 AM CDT Due to Mold Filling Operator update, MG+ reference range has changed from 1.8 - 2.4 mg/dL to the new reference range of 1.6 - 2.6 mg/dL. This will have limited patient impact. David Ortega MD CHEMISTRY ORDERABLES Final Res ult Performing Organization Address [facility] Co de Phone Number [facility] CLIA# [id number] [address] [place] [address] * PROTIME-INR (12/28/2016 2:39 AM CDT) [facility] PROTIME 15.0 12.3 - 15.5 Seconds 12/28/2016 5:16 AM CDT [facility] INR 1.1 0.8 - 1.2 12/28/2016 5:16 AM CDT [facility] Blood Collection / Unknown 12/28/2016 2:39 AM CDT 12/28/2016 5:01 AM CDT [place] [facility] - 12/28/2016 5:16 AM CDT Expected Values for INR: DVT/PE Goal INR 2.5; range 2.0 - 3.0 Valve Replacement Tissue Goal INR 2.5; range 2.0 - 3.0 Valve Replacement Mechanical Goal INR 3.0; range 2.5 - 3.5 POST-HI Goal INR 2.5; range 2.0 - 3.0 or Goal INR 3.0; range 2.5 - 3.5 Atrial Fibrillation Goal INR 2.5; range 2.0 - 3.0 Ischemic Stroke Goal INR 2.5; range 2.0 - 3.0 For additional information see Guidelines for Anticoagulation available from the pharmacy Wendy Vargas Pharm D. David Ortega MD HEMATOLOGY ORDERABLES Final Re sult [facility] CLIA# [id number] [address] [place] [address] * (ABNORMAL) PTT (12/28/2016 2:39 AM CDT) PTT 39.1(H) 24.8 - 38.8 seconds 12/28/2016 5:16 AM CDT [facility] Blood Collection / Unknown 12/28/2016 2:39 AM CDT 12/28/2016 5:01 AM CDT [place] [facility] - 12/28/2016 5:16 AM CDT Therapeutic Range: Hi-level PE/DVT heparin protocol 80.1 - 95.0 sec Lo-level PE/DVT heparin protocol 70.1 - 85.0 sec Cardiac Heparin Protocol 70.1 - 100.0 sec David Ortega MD HEMATOLOGY ORDERABLES Final Re sult [facility] CLIA# [id number] [facility] [place] [address] * (ABNORMAL) CBC WITH DIFFERENTIAL (12/28/2016 2:39 AM CDT) Pathologist [facility] WBC 11.0 4.5 - 11.0 K/uL 12/28/2016 5:09 AM CDT [facility] RBC 3.80(L) 4.20 - 5.40 M/uL 12/28/2016 5:09 AM CDT [facility] HEMOGLOBIN 9.3(L) 12.0 - 16.0 g/dL 12/28/2016 5:09 [facility] HEM[facility]IT 30.6(L) 36.0 - 46.0 % 12/28/2016 5:09 AM CDT [facility] MCV 80.5(L) 84.0 - 103.0 fL 12/28/2016 5:09 AM CDT [facility] MCH 24.5(L) 27.0 - 34.0 pg 12/28/2016 5:09 AM CDT [facility] MCHC 30.4 30.0 - 35.0 g/dL 12/28/2016 5:09 AM CDT [facility] RDW 17.3(H) 11.0 - 14.5 % 12/28/2016 5:09 AM T [facility] RDW-STDEV 51.8 37.0 - 54.0 fL 12/28/2016 5:09 AM CDT [facility] PLATELETS 757(H) 140 - 440 K/uL 12/28/2016 5:09 AM CDT [facility] MPV 8.9 8.9 - 12.8 fL 12/28/2016 5:09 AM CDT [facility] NEUTROPHILS 65 42 - 75 % 12/28/2016 5:09 AM CDT [facility] LYMPHOCYTES 19(L) 24 - 44 % 12/28/2016 5:09 AM CDT [facility] MONOCYTES 10 2 - 10 % 12/28/2016 5:09 AM CDT [facility] EOSINOPHILS 5 0 - 7 % 12/28/2016 5:09 AM CDT [facility] BASOPHILS 1 0 - 1 % 12/28/2016 5:09 AM CDT [facility] IMMATURE GRANULOCYTES 1 0 - 2 % 12/28/2016 5:09 AM CDT [facility] NEUTROPHIL ABSOLUTE 7.19 2.00 - 8.00 K/uL 12/28/2016 5:09 AM CDT [facility] LYMPHOCYTE ABSOLUTE 2.04 1.20 - 4.00 K/uL 12/28/2016 5:09 AM CDT [facility] MONOCYTE ABSOLUTE 1.06(H) 0.10 - 0.60 K/uL 12/28/2016 5:09 AM CDT [facility] EOSINOPHIL ABSOLUTE 0.60 0.00 - 0.70 K/uL 12/28/2016 5:09 AM CDT [facility] BASOPHILS ABSOLUTE 0.07 0.00 - 0.20 K/uL 12/28/2016 5:09 AM CDT [facility] IMMATURE GRANULOCYTES ABSOLUTE 0.07 0.00 - 0.10 K/uL 12/28/2016 5:09 AM T [facility] Blood Collection / Unknown 12/28/2016 2:39 AM CDT 12/28/2016 5:01 AM CDT us David Ortega MD HEMATOLOGY ORDERABLES Final Re sult [facility] CLIA# [id number] [address] [place] [address] * (ABNORMAL) COMPREHENSIVE METABOLIC PANEL (12/28/2016 2:39 AM CDT) SODIUM 143 136 - 145 mmol/L 12/28/2016 5:47 AM CDT [facility] POTASSIUM 3.3(L) 3.5 - 5.1 mmol/L 12/28/2016 5:47 AM [facility] CHLORIDE 103 98 - 107 mmol/L 12/28/2016 5:47 AM [facility] CO2 29 21 - 32 mmol/L 12/28/2016 5:47 AM [facility] CALCIUM 8.9 8.4 - 10.1 mg/dL 12/28/2016 5:47 AM [facility] BUN 13 7 - 17 mg/dL 12/28/2016 5:47 AM [facility] CREATININE 0.70 0.55 - 1.02 mg/dL 12/28/2016 5:47 AM [facility] GLUCOSE 46(LL) 74 - 106 mg/dL 12/28/2016 5:47 AM [facility] TOTAL PROTEIN 8.2 6.4 - 8.2 g/dL 12/28/2016 5:47 AM [facility] ALBUMIN 1.8(L) 3.4 - 5.0 g/dL 12/28/2016 5:47 AM [facility] BILIRUBIN TOTAL 0.2 0.2 - 1.0 mg/dL 12/28/2016 5:47 AM [facility] ALKALINE PHOSPHATASE 93 25 - 100 U/L 12/28/2016 5:47 AM [facility] AST 18 15 - 37 U/L 12/28/2016 5:47 AM [facility] ALT 18 13 - 61 U/L 12/28/2016 5:47 AM [facility] GFR >60 >=60 mL/min/1.7 3 sq meter 12/28/2016 5:47 AM [facility] Comment: eGFR has not been validated [...] 3 sq meter 12/28/2016 5:47 AM CDT [facility] ANION GAP 11 4 - 30 mmol/L 12/28/2016 5:47 AM CDT [facility] Blood Collection / Unknown 12/28/2016 2:39 AM CDT 12/28/2016 5:01 AM CDT us David Ortega MD CHEMISTRY ORDERABLES Final Res ult [facility] CLIA# [id number] [address] [place] [address] documented in this encounter Visit Diagnoses Not on filedocumented in this encounter Care Teams Assignment Officer Relationship Specialty Start Date End Date Shravan Jones DO [address] [address] PCP - General Family Practice 12/04/16 documented as of this encounter
--- OUTSIDE RECORDS SUMMARY | 2025-03-28 03:12 | XMS_ITS | Encounter Summary ---
Author Organization [facility] Address [address] [place] [address] Care Team Providers Care Pull Worker Name Role Phone Shravan Jones DO Primary Care Provider [phone] Encounter Details Date Type Department Care Team (Late st Contact Info) Description 01/07/2017 Lab Requisition [facility] [address] [place] [address] David Ortega MD [address] [place] [address] Social History Tobacco Use Types Packs/Day Years Used Date Smoking Tobacco: Every Day Cigarettes Comments:pt lethargic Comments Unknown Sex and Gender Information Value Date Recorded Sex Assigned at Not on file 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
--- OUTSIDE RECORDS SUMMARY | 2025-03-28 03:12 | XMS_ITS | Data Portability ---
Author Organization Billie Skinner [facility] Address [address] [address] Assessment Encounter Date Assessment Date Assessment LastModified [...] available Not available Lab CBC 2024 025 [facility], [address] [place] [address], [address], 09/23/2024 09:57:42 Referral gynecolog ist referral 2024 025 [email or web address] [facility], [address] [place] [address], [address], 03/08/2025 18:20:51 hematolog ist referral 2024 025 asurface Donn Huynh MD, [address] [place] [address], [address], 09/22/2024 13:25:16 Procedures None recorded. Surgeries None recorded. Imaging None recorded. Medication Orders tizanidin e 4 mg tablet 2024 025 [facility], [address], [place], [address], 01/23/2025 05:01:54 amlodipin e 5 mg tablet 2024 025 [facility], [address], [place], [address], 11/27/2024 11:31:03 losartan 50 mg tablet 2024 025 [facility], [address], [place], [address], 01/06/2025 12:13:38 gabapenti n 300 mg capsule [address], [address], [place], [address], 03/03/2025 12:50:43 clonazepa m 1 mg tablet 2024 025 [facility] 15, [address], [place], [address], 01/06/2025 12:23:21 escitalop jasmin 20 mg tablet 2024 [facility] 15, [address], [place], [address], 10/05/2024 10:53:57 amoxicill in 875 mg tablet 2024 025 [facility] 15, [address], [place], [address], 10/05/2024 10:42:27 gabapenti n 300 mg capsule [address] 15, [address], [place], [address], 03/03/2025 12:50:43 Patient TargetsNo targets recorded. Patient Instructions Encounter Date Encounter Id Patient Instructions Last Modified By Organization Details Last Modified Time 09/16/2024 [id number] Call or return for questions or concerns. Not available 09/16/2024 11:14:35 10/05/2024 [id number] hospital discharge follow up* Not available 10/05/2024 10:53:51 Call or return for questions or concerns. Not available 10/05/2024 10:53:37 11/27/2024 [id number] Call or return for questions or concerns. Not available 11/27/2024 10:49:56 01/06/2025 [id number] Call or return for questions or concerns. Not available 01/06/2025 12:41:02 03/03/2025 [id number] hospital discharge follow up* Not available 03/03/2025 13:06:12 Call or return for questions or concerns. 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 Referral for Hi story of abnormal cervical Papanicolaou smear Referring Physician: Elizabeth Houser, Family Medicine, Encounter Date: 03/03/2025 Results Created Date Observation Date Name Description Value Unit Range Abnormal Flag Note LastModifiedBy Organization Detail LastModifiedTime 10/06/19 25 10/05/2024 hospi jenna disch arge follo w up* Records Reviewed Yes Not Available [facility] ( [facility]) [address] [place], [address], 10/05/2024 10:32:40 10/06/19 25 10/05/2024 hospi jenna disch arge follo w up* Medications Reconciles Yes Not Available [facility] ([facility]) [address] [place], [address], 10/05/2024 10:32:40 03/03/20 25 03/03/2025 hospi jenna disch arge follo w up* Records Reviewed Yes Not Available [facility] ( [facility]) [address] [place], [address], 03/03/2025 12:56:45 03/03/20 25 03/03/2025 hospi jenna disch arge follo w up* Medications Reconciles Yes Not Available [facility] ([facility]) [address] [place], [address], 03/03/2025 12:56:45 09/22/19 25 09/21/2024 MAMMO , diagn ostic , digit al, unila teral No observ ation record ed. [facility] [address] [place], [address], 10/05/2024 10:33:01 09/22/19 25 09/21/2024 MAMMO , diagn ostic , digit al, unila teral No observ ation record ed. [facility] [address] [place], [address], 10/05/2024 10:33:01 Result Notes None recorded. Problems Name Problem SNOMED Code Status Onset Date Resolution Date Notes Provider Name and Address Organization Details Recorded Time Hypoxemi c respirat ory failure 81915032251 006194 Active XIMENA coles [facility] 4 23:40:08 Pulmonar y edema 42682361 [facility] 23:38:38 Myocardi al infarcti on 56155941 Active XIMENA KEATING [facility] 4 23:39:29 Alkaline phosphat ase above referenc e range 726347413 Active XIMENA KEATING [facility] 4 23:42:35 Refracto ry migraine without aura 877500799 Active XIMENA coles [facility] 4 23:38:28 Type 1 diabetes mellitus 99186713 Active ELIZABETH HOUSER, [facility] [address] [place], [address], [facility] 5 12:32:15 Metaboli c acidosis 85476745 Active XIMENA KEATING [facility] 4 23:39:34 Pulmonar y hyperten catherine 38669774 [facility] 23:38:32 Long-ter m current use of insulin 957530141 Active XIMENA RISHABH coles [facility] 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 4 23:39:00 Sepsis 05524386 Active ELIZABETH HOUSER, [address], [address], [facility] 5 12:32:15 Coronary atherosc lerosis 036816915 Active ELIZABETH HOUSER, [address], [address], [facility] 5 12:30:34 Chest wall pain 177104702 Completed 09/16/2024 ELIZABETH HOUSER, [address], [address], [facility] 5 11:17:49 Atypical chest pain 572653504 Completed 09/16/2024 ELIZABETH HOUSER, [address], [address], [facility] 5 11:17:49 Myofasci al low back pain 9382253955 Completed 09/16/2024 ELIZABETH HOUSER, [address], [address], [facility] 5 11:17:49 Acute kidney injury 91552315 Completed 09/16/2024 ELIZABETH HOUSER, [address], [address], [facility] 11:17:49 Backache 355454040 Completed 09/16/2024 ELIZABETH HOUSER, [address], [address], [facility] 11:17:49 Anterior chest wall pain 487835891 Completed 09/16/2024 ELIZABETH HOUSER, [address], [address], [facility] 11:17:49 Serum creatini ne above referenc e range 130586865 Completed 09/16/2024 ELIZABETH HOUSER, [address], [address], [facility] 11:17:49 Nausea and vomiting 76842391 Completed 09/16/2024 ELIZABETH HOUSER, [address], [address], [facility] 11:17:49 Fall Completed 09/16/2024 ELIZABETH HOUSER, [address], [address], [facility] 11:17:49 Acute exacerba tion of chronic obstruct hung pulmonar y disease 762462933 Active ELIZABETH HOUSER, [address], [address], [facility] 11:18:50 Abdomina l pain 06913978 Completed 09/16/2024 ELIZABETH HOUSER, [address], [address], [facility] 11:17:49 Pleuriti c pain 1899538 Completed 09/16/2024 ELIZABETH HOUSER, [address], [address], [facility] 11:17:49 Pneumoni a 910412481 Completed 09/16/2024 ELIZABETH HOUSER, [address], [address], [facility] 11:17:49 Acute hypergly cemia 405744501 Completed 09/16/2024 ELIZABETH HOUSER, [address], [address], [facility] 11:17:49 Flank pain 591855186 Completed 09/16/2024 ELIZABETH HOUSER, [address], [address], [facility] 11:17:50 Headache 46999463 Completed 09/16/2024 ELIZABETH HOUSER, [address], [address], [facility] 11:17:50 Drug abuse 78887560 Completed 09/16/2024 ELIZABETH HOUSER, [address], [address], [facility] 11:17:50 Dyspnea 731317855 Completed 09/16/2024 ELIZABETH HOUSER, [address], [address], [facility] 11:17:50 Left sided abdomina l pain 943977137 Completed 09/16/2024 ELIZABETH HOUSER, [address], [address], [facility] 11:17:50 Rib pain 231610264 Completed 09/16/2024 ELIZABETH GIBBONSTES, [address], [address], [facility] 11:17:50 Chest pain 77331131 Completed 09/16/2024 ELIZABETH HOUSER, [address], [address], [facility] 11:17:50 Hypoglyc emia 363112204 Completed 09/16/2024 ELIZABETH GIBBONSTES, [address], [address], [facility] 11:17:50 Hyperosm olar non-keto tic state due to diabetes mellitus 575509953 Completed 09/16/2024 ELIZABETH HOUSER, [address], [address], [facility] 11:17:50 Dehydrat ion 80656151 Completed 09/16/2024 ELIZABETH HOUSER, [address], [address], [facility] 11:17:50 Blood in urine 85058090 Completed 09/16/2024 ELIZABETH HOUSER, [address], [address], [facility] 11:17:50 Enzyme level - finding 584724219 Completed 09/16/2024 ELIZABETH HOUSER, [address], [address], [facility] 11:17:50 Hypergly cemia due to type 1 diabetes mellitus 68521191964 9101 Completed 09/16/2024 ELIZABETH HOUSER, [address], [address], [facility], Billie 11:17:50 Hyperten sive disorder 82933121 Completed 09/16/2024 ELIZABETH HOUSER, [address], [address] [place] [address] 5, [facility], KaelynCJacobo 11:17:50 Communit y acquired pneumoni a 013592232 Completed 09/16/2024 ELIZABETH HOUSER, [address], [address], [facility], Billie 11:17:50 Hypother speedy 523856276 Completed 09/16/2024 ELIZABETH HOUSER, [address], [address], [facility], KaelynCJacobo 11:17:50 Hypoxia 126735625 Completed 09/16/2024 ELIZABETH HOUSER, [address], [address], [facility], Billie 11:17:50 Tension- type headache 742837523 Completed 09/16/2024 ELIZABETH HOUSER, [address], [address], [facility], KaelynCJacobo 11:17:50 Cardiac enzyme or marker above referenc e range 249556769 Completed 09/16/2024 ELIZABETH HOUSER, [address], [address], [facility], KaelynCJacobo 11:17:50 Respirat ory failure 269612698 Completed 09/16/2024 ELIZABETH HOUSER, [address], [address], [facility] 11:17:50 Acute lymphade nitis 09636116 Completed 09/16/2024 ELIZABETH HOUSER, [address], [address] [place] [address] 5, [facility] 11:17:50 Vomiting 802224876 Completed 09/16/2024 ELIZABETH HOUSER, [address], [address] [place] [address] 5, [facility] 11:17:50 Chronic kidney disease stage 3 605741171 Completed 09/16/2024 ELIZABETH HOUSER, [address], [address], [facility] 11:17:50 Gastriti s 8114198 Completed 09/16/2024 ELIZABETH HOUSER, [address], [address], [facility] 11:17:50 Preinfar ction syndrome 2735582 Completed 09/16/2024 ELIZABETH HOUSER, [address], [address], [facility] 11:17:51 Nephroti c syndrome 31877180 Completed 09/16/2024 ELIZABETH HOUSER, [address] [address], [facility] 11:17:51 Wheezing 10105387 Completed 09/16/2024 ELIZABETH HOUSER, [address], [address], [facility] 11:17:51 Diarrhea 30714402 Completed 09/16/2024 ELIZABETH HOUSER, [address], [address], [facility] 11:17:51 Colitis 90255042 Completed 09/16/2024 ELIZABETH HOUSER, [address], [address], [facility] 11:17:51 Acute cystitis 86625226 Completed 09/16/2024 ELIZABETH HOUSER, [address], [address], [facility] 11:17:51 Urinary tract infectio us disease 09037266 Completed 09/16/2024 ELIZABETH HOUSER, [address], [address], [facility] 11:17:51 Symptoma tic congesti ve heart failure 429888968 Completed 09/16/2024 ELIZABETH HOUSER, [address], [address], [facility] 11:17:51 Intracta ble nausea and vomiting 207737210 Completed 09/16/2024 ELIZABETH HOUSER, [address], [address], [facility] 11:17:51 Chronic kidney disease 662468243 Completed 09/16/2024 ELIZABETH HOUSER, [address], [address], [facility] 5 11:17:51 Diabetes mellitus 17744778 Completed 09/16/2024 ELIZABETH CORRINA, [address], [address], [facility] 5 11:17:51 Hypergly cemia 40615319 Completed 09/16/2024 ELIZABETH CORRINA, [address], [address], [facility] 5 11:17:51 Neck pain 36454370 Completed 09/16/2024 ELIZABETH HOUSER, [address], [address], [facility] 5 11:17:51 COVID-19 397862377 Completed 09/16/2024 ELIZABETH CORRINA, [address], [address], [facility] 5 11:17:51 Hyponatr emia 68394813 Completed 09/16/2024 ELIZABETH CORRINA, [address], [address], [facility] 5 11:17:51 Tobacco dependen ce syndrome 31301243 Completed 09/16/2024 ELIZABETH CORRINA, [address], [address], [facility] 5 11:17:51 Lactic acidosis 29517884 Completed 09/16/2024 ELIZABETH CORRINA, [address], [address], [facility] 5 11:17:51 Stable angina 672797658 Completed 09/16/2024 ELIZABETH HOUSER, [address], [address] [place] [address] 5, [facility] 5 11:17:49 Non-card iac chest pain 683621163 Completed 09/16/2024 ELIZABETH HOUSER, [address], [address] [place] [address] 5, [facility] 5 11:17:50 Pain of knee region 0741619237 Active ELIZABETH HOUSER, [address], [address] [place] [address] 5, [facility] 5 12:30:32 Chest wall pain 594122655 Active ELIZABETH HOUSRE, [address], [address] [place] [address] 5, [facility] 5 12:30:32 Atypical chest pain 714056768 Active ELIZABETH HOUSER, [address], [address] [place] [address] 5, [facility] 5 12:32:14 Pain in lower limb 66395250 Active ELIZABETH HOUSER, [address], [address] [place] [address] 5, [facility] 5 12:30:32 Blurring of visual image 160154752 Active ELIZABETH HOUSER, [address], [address] [place] [address] 5, [facility] 5 12:30:32 Myofasci al low back pain 2226884598 Active ELIZABETH HOUSER, [address], [address] [place] [address], [facility] 5 12:30:32 Retroper itoneal lymphade nopathy 191921039 Rachael HOUSER, [address], [address] [place] [address] 5, [facility] 5 12:30:32 Hyperkal emia 78041807 Rachael HOUSER, [address], [address] [place] [address] 5, [facility] 5 12:30:32 Acute kidney injury 82842494 Rachael HOUSER, [place] [address], [facility] 5 12:32:14 Constipa tion 85177708 Rachael HOUSER, [address], [address] [place] [address], [facility] 5 12:30:32 Backache 531498208 Rachael HOUSER, [address], [address] [place] [address], [facility] 5 12:32:14 Anterior chest wall pain 091115650 Rachael HOUSER, [address], [address] [place] [address], [facility] 5 12:30:32 Serum creatini ne above referenc e range 019013420 Rachael HOUSER, [place] [address], [facility] 5 12:30:32 Nausea and vomiting 98025739 Rachael HOUSER, [place] [address], [facility] 5 12:30:32 Fall Active ELIZABETH HOUSER, [address], [address], [facility] 5 12:32:14 Complica tion of dialysis 09614601 Active ELIZABETH HOUSER, [address], [address] [place] [address] 5, [facility] 5 12:30:33 Abdomina l pain 71469728 Active ELIZABETH HOUSER, [address], [address] [place] [address] 5, [facility] 5 12:32:14 Hypervol emia 19738164 Rachael HOUSER, [address], [address] [place] [address] 5, [facility] 5 12:30:33 Pleuriti c pain 9449409 Rachael HOUSER, [address], [address] [place] [address] 5, [facility] 5 12:30:33 Pneumoni a 264041299 Rachael HOUSER, [address], [address] [place] [address] 5, [facility] 5 12:32:14 Stable angina 845803969 Active ELIZABETH HOUSER, [place] [address], [facility] 12:30:33 Acute hypergly cemia 910903943 Rachael HOUSER, [place] [address], [facility] 5 12:30:33 Flank pain 422236606 Rachael HOUSER, [address], [address] [place] [address] 5, [facility] 5 12:30:33 Headache 55664703 Rachael HOUSER, [address], [address] [place] [address] 5, [facility] 5 12:30:33 Drug abuse 68426566 Rachael HOUSER, [address], [address] [place] [address] 5, [facility] 5 12:30:33 Dyspnea 631629363 Rachael HOUSER, [address], [address] [place] [address] 5, [facility] 5 12:30:33 Non-card iac chest pain 691995127 Rachael HOUSER, [address], [address] [place] [address] 5, [facility] 5 12:30:33 History of heart disorder 981147933 Rachael HOUSER, [address], [address] [place] [address] 5, [facility] 5 12:30:33 Left sided abdomina l pain 594046860 Rachael HOUSER, [address], [address] [place] [address] 5, [facility] 5 12:30:33 Rib pain 957489858 Rachael HOUSER, [address], [address] [place] [address], [facility] 12:30:33 Chest pain 87989200 Rachael HOUSER, [address], [address] [place] [address], [facility] 12:32:14 Hypoglyc emia 554578348 Rachael HOUSER, [address], [address] [place] [address], [facility] 12:32:14 Hyperosm olar non-keto tic state due to diabetes mellitus 936872497 Rachael HOUSER, [place] [address], [facility] 12:30:33 Dehydrat ion 78498404 Rachael HOUSER, [place] [address], [facility] 12:30:33 Blood in urine 67883645 Rachael HOUSER, [place] [address], [facility] 12:30:33 Enzyme level - finding 103593431 Rachael HOUSER, [address], [address] [place] [address], [facility] 12:30:33 Hypergly cemia due to type 1 diabetes mellitus 79728129287 9101 Rachael HOUSER, [place] [address], [facility] 12:30:33 Hyperten sive disorder 49617202 Rachael HOUSER, [place] [address], [facility] 12:32:14 Communit y acquired pneumoni a 697028221 Rachael HOUSER, [address], [address], [facility] 12:30:33 Hypother speedy 564235539 Rachael HOUSER, [address], [address] , [facility] 12:30:33 Hypoxia 807730525 Rachael HOUSER, [address], [address] , [facility] 12:30:34 Tension- type headache 543391213 Rachael HOUSER, [address], [address] , [facility] 5 12:30:34 Cardiac enzyme or marker above referenc e range 718112929 Rachael HOUSER, [address], [address] , [facility] 5 12:30:34 Respirat ory failure 604725323 Rachael HOUSER, [address], [address] , [facility] 5 12:30:34 Acute lymphade nitis 99354394 Rachael HOUSER, [address] , [facility] 12:30:34 Vomiting 045344186 Rachael HOUSER, [place] [address], [facility] 5 12:30:34 Chronic kidney disease stage 3 [id number] Rachael HOUSER, [address], [address] [place] [address] 5, [facility] 5 12:30:34 Hyperten sive urgency 231605518 Active ELIZABETH HOUSER, [address], [address] [place] [address] 5, [facility] 5 12:30:34 Gastriti s [id number] Rachael HOUSER, [address], [address] [place] [address], [facility] 5 12:30:34 Preinfar ction syndrome [id number] Rachael HOUSER, [address], [address] [place] [address], [facility] 5 12:30:34 Complica tion associat ed with dialysis catheter [id number] Rachael HOUSER, [address], [address] [place] [address], [facility] 5 12:30:34 Nephroti c syndrome [id number] Rachael HOUSER, [address], [address] [place] [address], [facility] 5 12:30:34 Wheezing [id number] Rachael HOUSER, [address], [address] [place] [address] 5, [facility] 5 12:30:34 Diarrhea [id number] Rachael HOUSER, [address], [address] [place] [address], [facility] 5 12:30:34 Colitis [id number] Rachael HOUSER, [address], [address] [place] [address] 5, [facility] 5 12:30:34 Acute cystitis [id number] Rachael HOUSER, [address], [address] [place] [address] 5, [facility] 5 12:32:15 Urinary tract infectio us disease [id number] Rachael HOUSER, [address], [address] [place] [address] 5, [facility] 5 12:32:15 Symptoma tic congesti ve heart failure [id number] Rachael HOUSER, 19 [address], [address] [place] [address], [facility] 5 12:30:34 Intracta ble nausea and vomiting [id number] Rachael HOUSER, [address], [address] [place] [address] 5, [facility] 5 12:32:15 Malignan t hyperten catherine [id number] Rachael HOUSER, [address], [address] [place] [address] 5, [facility] 5 12:30:34 Chronic kidney disease [id number] Rachael HOUSER, [address], [address] [place] [address], [facility] 5 12:32:15 Gastropa resis due to diabetes mellitus [id number] Rachael HOUS[address], [address] [place] [address] 5, [facility] 5 12:32:15 Intussus ception of small intestin e [id number] Rachael HOUSER, [address], [address] [place] [address] 5, [facility] 5 12:30:35 Diabetes mellitus 35734955 Active ELIZABETH HOUSER, [address], [address] [place] [address] 5, [facility] 5 12:32:15 Hypergly cemia [id number] Rachael HOUSER, [address], [address] [place] [address] 5, [facility] 5 12:32:15 Neck pain [id number] Rachael HOUSER, [address], [address] [place] [address] 5, [facility] 5 12:30:35 COVID-19 [id number] Rachael HOUSER, [address], [address] [place] [address] 5, [facility] 5 12:30:35 Hyponatr emia [id number] Rachael HOUSER, [address], [address] [place] [address] 5, [facility] 5 12:30:35 Tobacco dependen ce syndrome [id number] Rachael HOUSER, [address], [address] [place] [address] 5, [facility] 5 12:30:35 Lactic acidosis [id number] Rachael HOUSER, [address] [place], [address], [facility] 5 12:30:35 Chronic respirat ory failure 76032842 Active 2023 XIMENA coles [facility] 4 13:05:55 Neurogen ic urinary bladder 048533112 Active 2023 XIMENA coles [facility] 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 4 13:06:31 Chronic kidney disease stage 5 787426531 Active 2023 XIMENA coles [facility] 4 13:06:41 Acute non-ST segment elevatio n myocardi al infarcti on 718916710 Active 2023 XIMENA coles [facility] 4 13:06:53 Neuropat hy due to diabetes mellitus 735112557 Active 2023 XIMENA coles [facility] 4 13:07:12 Chronic pulmonar y edema 29538718 Active 2023 XIMENA colse [facility] 4 13:07:22 Pyelonep hritis 34705400 Active 2023 ELIZABETH HOUSER, [facility] [address] [place], [address], [place] [facility] 5 12:32:14 Coronary arterios clerosis 51219011 Active 2023 ELIZABETH HOUSER, [facility] [address] [place], [address], [facility] 5 12:32:15 Chronic obstruct hung pulmonar y disease 52183522 Active 2023 XIMENA coles [facility] 4 13:08:00 Esseliud l hyperten catherine 40323575 Active 2023 XIMENA coles [facility] 4 13:08:11 Uncontro lled type 1 diabetes mellitus 002159313 Active 2023 dx in 2008 XIMENA coles [facility] 4 12:33:15 Noncompl iance with treatmen t 8096045 Active 2023 XIMENA coles [facility] 4 13:08:41 Noncompl iance with medicati on regimen 812522450 Active 2023 XIMENA coles [facility] 4 13:08:51 History of pancreat itis 42600579183 107 Active 2023 XIMENA coles [facility] 4 13:09:14 Dependen ce on renal dialysis 836576806 Active 2023 XIMENA coles [facility] 4 13:09:38 History of sepsis 48542781883 9100 Active 2023 XIMENA coles [facility] 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 4 13:10:04 Celiac disease 678170051 Active 2023 XIMENA coles [facility] 4 13:10:14 Stented artery 524896834 Active 2023 XIMENA coles [facility] 4 13:11:26 End-stag e renal disease 97939537 Active 2023 ELIZABETH HOUSER, [address], [address], [facility] 5 12:32:15 Recurren t urinary tract infectio n 872604183 Active 2023 XIMENA coles [facility] 4 12:26:12 Chiari malforma tion 867810233 Active 2023 XIMENA coles [facility] 4 12:26:50 Steatoti c liver disease 164130312 Active 2023 XIMENA coles [facility] 4 12:27:02 Anemia 671897111 Active 2023 XIMENA coles [facility] 4 12:27:22 Female pelvic inflamma tory disease 532878750 Active 2023 XIMENA coles [facility] 4 12:28:16 Mixed anxiety and depressi ve disorder 420751554 Active 2023 XIMENA coles [facility] 4 12:28:28 Pancreat itis 18737068 Active 2023 XIMENA coles [facility] 4 12:28:40 Diabetic ketoacid osis 509989225 Active 2023 recurren t XIMENA coles [facility] 4 12:28:57 Migraine 90006567 Active 2023 ELIZABETH HOUSER, [address], [address], [facility] 5 12:32:14 Cardiome enoch 3833674 Active 2023 XIMENA coles [facility] 4 12:30:17 Edema 886682464 Active 2023 XIMENA coles [facility] 4 23:45:39 Edema due to fluid overload 792140608 Active 2023 XIMENA coles [facility] 4 23:45:54 End stage renal failure on dialysis 813787921 Active 2023 XIMENA coles [facility] 5 15:31:59 Esophagi tis 67435230 Active 2024 XIMENA coles [facility] 5 18:23:17 Notes:Some problems listed i n Documents: #[id number], #[id number], #[id number], #[id number] could not be added to this patient's chart. Please review these documents and add these problems to the patient's chart manually as needed. Problem Notes None recorded. Procedures Surgical History Date Name Laterality Status Provider Name and Address Organization Details Recorded Time 12/27/19 CT of chest completed XIMENA KEATING [facility] 12/27/2024 14:20:38 12/26/19 25 plain X-ray of chest completed [facility] 12/27/2024 14:13:55 11/11/19 25 plain X-ray of cervical spine completed [facility] 11/11/2024 12:44:02 10/01/19 25 angiography completed [facility]. 10/01/2024 18:38:18 09/27/19 25 plain X-ray of chest completed [facility], LJacoboLJacoboCJacobo 09/27/2024 18:18:09 09/27/19 25 echocardiography completed [facility], LJacoboLJacoboCJacobo 10/01/2024 18:33:00 09/22/19 25 ultrasonography of right breast completed [facility] 09/21/2024 13:39:24 09/22/19 25 mammography completed [facility] 09/21/2024 13:40:36 09/11/[address] of abdomen completed [facility] 09/13/2024 14:56:32 09/10/19 25 angiography of coronary artery completed [facility] 09/13/2024 14:50:21 09/09/19 25 echocardiography completed [facility] 09/13/2024 14:54:55 09/08/19 25 plain X-ray of chest completed [facility] 09/13/2024 14:57:51 08/24/[address] of chest completed [facility], LJacoboLJacoboCJacboo 08/24/2024 12:28:02 04/28/20 24 plain X-ray of chest completed [facility] 04/30/2024 11:08:42 03/31/20 24 plain X-ray of chest completed [facility] 04/01/2024 14:05:05 03/27/20 24 imaging guided percutaneous transluminal angioplasty of coronary artery with contrast completed [facility], LJacoboLJacoboCJacobo 10/05/2024 10:23:19 02/28/20 24 radiographic procedure on chest and/or abdomen completed [facility], LJacoboL.CJacobo 03/04/2024 15:02:31 02/28/[address] of abdomen completed [facility] L[facility]oboL.C. 03/04/2024 15:03:26 01/19/20 24 diagnostic radiography of abdomen completed [facility] LJacoboL.C. 01/21/2024 17:26:25 01/06/20 24 plain X-ray of chest completed [facility] L[facility]oboL.C. 01/07/2024 15:42:42 12/27/19 24 plain X-ray of chest completed [facility] 12/29/2023 23:23:06 12/27/19 24 CT of chest, abdomen and pelvis completed [facility] L[facility]oboL.C. 12/29/2023 23:32:58 12/24/19 24 plain X-ray of chest completed [facility] 12/29/2023 23:56:29 12/20/[address] of chest completed [facility] L[facility]oboL.C. 12/21/2023 12:33:52 12/20/19 24 plain X-ray of chest completed [facility], LJacoboLJacoboCJacobo 12/21/2023 12:34:44 12/09/19 24 plain X-ray of chest completed [facility] 12/12/2023 10:16:37 12/05/19 24 plain X-ray of chest completed [facility] 12/06/2023 13:24:46 11/28/19 24 cardiac catheterization completed [facility] 12/06/2023 13:11:07 11/28/19 24 imaging guided percutaneous transluminal angioplasty of coronary artery with contrast completed [facility] 10/05/2024 10:22:55 11/27/19 24 plain X-ray of chest completed [facility] 11/28/2023 10:19:35 10/24/19 24 imaging guided percutaneous transluminal angioplasty of coronary artery with contrast completed [facility] 10/05/2024 10:22:32 10/16/19 24 imaging guided percutaneous transluminal angioplasty of coronary artery with contrast completed [facility] 10/05/2024 10:22:12 10/07/19 24 plain X-ray of chest completed [facility] 10/08/2023 17:52:40 09/20/19 24 echocardiography completed [facility] 09/26/2023 12:48:56 lobectomy of lung completed [facility] 10/10/2023 12:32:47 amputation completed [facility] 08/24/2024 12:24:04 cholecystectomy completed [facility] 09/13/2024 14:49:22 Imaging Results None recorded. Procedure Notes None recorded. Medical Equipment None Reported. Allergies Allergen ID Allergen Name Allergen Category Reaction Reaction Severity Criticality Documentation Date Start Date Code Code System Note Provider Name and Address Organization Details Recorded Time 93990 acetamino phen medicatio n abdominal pain moderate low 01/19/20232021 161 RxNorm GI upset /into leran ce Anh Massey [facility], [facility] 4 07:57:42 14363 acetamino phen medicatio n Not available Not available Not available 02/21/20242023 161 RxNorm ELIZABETH HOUSER, [facility] [address] [place], [address], [facility], DonteLSanju 5 12:32:03 Medications Name Sig Start Date [...] her to decrease to 100mg TID followin g [facility], 02/27 and 02/28 Not Available Not Available [...] times per day 10/09 completed VO CH/jl; 45663; Recorded 05/14/20 19 10:02AM by Leydi Jessica [...] Updated DateTime 5 152.4 cm 26.8 kg/m2 56992.1 5 g 99 % 99 % 64 /min 18 /min 144/90 mm[Hg] XIMENA KEATING [facility] 5 09:43:53 Date Recorded Body height Body mass index (BMI) Body weight Heart rate Oxygen saturation Oxygen saturation in Arterial blood by Pulse oximetry Body temperature Systolic And Diastolic Provider Name and Address Organization Details Last Updated DateTime 5 152.4 cm 26.6 kg/m2 01096.5 6 g 62 /min 97 % 97 % 98.1 [degF] 150/80 mm[Hg] RISHABH [facility] 5 10:09:34 Date Recorded Body height Body mass index (BMI) Body weight Oxygen saturation Oxygen saturation in Arterial blood by Pulse oximetry Heart rate Respiratory rate Systolic And Diastolic Provider Name and Address Organization Details Last Updated DateTime 5 152.4 cm 25.8 kg/m2 27536.1 9 g 95 % 95 % 70 /min 18 /min 150/80 mm[Hg] XIMENA KEATING [facility] 5 10:11:17 Date Recorded Body height Body mass index (BMI) Body weight Oxygen saturation Oxygen saturation in Arterial blood by Pulse oximetry Heart rate Respiratory rate Systolic And Diastolic Provider Name and Address Organization Details Last Updated DateTime 5 152.4 cm 26.6 kg/m2 81472.5 6 g 95 % 95 % 76 /min 20 /min 138/82 mm[Hg] XIMENA KEATING [facility] 5 12:04:30 Date Recorded Body height Body mass index (BMI) Body weight Oxygen saturation Oxygen saturation in Arterial blood by Pulse oximetry Heart rate Respiratory rate Body temperature Systolic And Diastolic Provider Name and Address Organization Details Last Updated DateTime 5 152.4 cm 26.8 kg/m2 34848.1 5 g 97 % 97 % 72 /min 18 /min 98 [degF] 120/70 mm[Hg] BRANDON RIVERA [facility] 5 12:37:22 Social History Question Answer Notes LastModified by Organizat ion Details LastModified Time Tobacco Smoking Status Former Smoker Quit 07/2023 XIMENA KEATING [facility] 12/24/2023 12:30:16 What Type Of Diet Are You Following? REGULAR Information not available 12/24/2023 Which Illicit Or Recreational Drugs Have You Used? Smokes Meth [email or web address] Information not available 10/10/2023 When Did You Quit Smoking? 1-5yearssin celastcigar ette Information not available 12/24/2023 What Was The Date Of Your Most Recent Tobacco Screening? 12/24/2023 Information not available 12/24/2023 What Is Your Current Pack Years? 20-29packye ars Information not available 12/24/2023 What Is Your Relationship Status? Single [email or web address] Information not available 12/24/2023 At What Age [...] or recreational drugs? Yes Quit Meth 07/2023 [email or web address] Information not available 12/24/2023 Do you or have you ever used any other forms of tobacco or nicotine? No Information not available 12/24/2023 What is your level of alcohol consumption? None [email or web address] Information not available 10/10/2023 Are you currently employed? No disabled [email or web address] Information not available 10/10/2023 Are you able to walk independently without assistance or assistive devices? YESASSIST [email or web address] Information not available 10/10/2023 Are you able to care for yourself independently? No Mother is her caregiver. [email or web address] Information not available 10/10/2023 Do you or have you ever used any nicotine-free cigarettes, vape, or chewing tobacco? No Information not available 12/24/2023 Mental Status None recorded. Family History Relationship Description Onset Age of this Age Resolved Age Notes LastModified by Organization Details LastModified Time Mother Myocardial infarction In her 50's [email or web address] Not available 12/29/2023 23:44:26 Mother Rheumatoid arthritis [email or web address] Not available 12/28 23:44:44 Brother Acute lymphoid leukemia Not available 10/18 18:24:23 Medical History Condition Response Coronary Artery Disease Y Heart Problems Y Hospitalizations Y Lung Disease Y Depression Y COPD Y Diabetes Y Anxiety Disorder Y High Cholesterol Y Heart Disease Y Headaches Y Hypertension Y Kidney Disease Y Gynecological HistoryNo gynecological history recorded. Obstetrics History GPAL:G 0 P 0 0 0 0 Immunizations Vaccine Type Date Status Note Provider Nam e and Address Organization Details Recorded Time pneumococcal polysaccharide PPV23 8 completed ELIZABETH OHUSER, [employer] [address] [place], [address], [facility], LJacoboLSanju 12/24/2023 12:51:09 Past Encounters Encounter ID Performer Location Encounter Start Date Encounter Closed Date Diagnosis/Indication Diagnosis SNOMED-CT Code Diagnosis ICD10 Code Diagnosis IMO Codes Diagnosis Note [id number] SUZANNE HEATON [facility] ([facility]) [address] [place] [id number] 10/10/2023 11:29:12 10/10/2023 13:24:32 Uncontrolled type 1 diabetes mellitus 226330629 E10.[address] Ortega. End stage renal failure on dialysis 886139942 Z99.2 MWF dialysis. Multi vess el coronary artery disease 382036806 I25.10 Following with cardiology in [facility]. Essential hypertension 33158690 I10 Coronary arteriosclerosis 72811377 I25.10 Follows with cardiology in [facility]. [id number] Matthew Packer DO [facility] ([facility]) [address] [place] [id number] 12/02/2023 12:01:39 12/02/2023 13:56:02 Dental abscess 978643077 K04.7 Will start patient on lower dose amoxicilli n due to her hemodialys is status. Counseled patient that it is imperative that she see and be evaluated by a dentist in the next 2 to 4 weeks. [id number] SUZANNE HEATON [facility] ([facility]) [address] [place] [id number] 12/24/2023 11:37:48 12/24/2023 14:35:44 Mixed anxiety and depressive disorder 440818315 F41.8 Essential hypertension 08357525 I10 Starting Nifedipine today. Type 1 mainor betes mellitus 03761077 E10.[address] Ortega. Pain in bi lateral legs 2296745129 5972054 M79.604 M79.605 Patient reports she took some of her mom's in the past and it was helpful. End stage renal failure on dialysis 631915929 Z99.2 MWF dialysis. [id number] SUZANNE HEATON [facility] ([facility]) [address] [place] [id number] 01/07/2024 15:11:38 01/07/2024 17:49:26 Edema 027622901 R60.9 Non-pittin g lower extremity. Chest pain 00204083 R07. 9 Recurrent. Following with cardiology . Blood pres sure outside reference range 00336908 Z01.31 Will half dose of nifedipine until she is seen with cardiology . [id number] SUZANNE HEATON [facility] ([facility]) [address] [place] [id number] 02/21/2024 11:42:22 02/21/2024 12:51:01 End-stage renal disease 10002246 N18.6 Continue dialysis. Essential hypertension 73071244 I10 Blood pressure good today. Continue current meds. Uncontroll ed type 1 diabetes mellitus 707817621 E10.65 Continue to follow with Dr. Ortega. Mixed anxi ety and depressive disorder 272854450 F41.8 [id number] SUZANNE HEATON [facility] ([facility]) [address] [place] [id number] 04/01/2024 13:47:35 04/01/2024 15:21:12 Essential hypertension 74672667 I10 Monitor at home. Follow-up with cardiology . Uncontroll ed type 1 diabetes mellitus 516004080 E10.65 Continue to follow with Dr. [facility] 294947222 Z30.9 Has a Nexplanon in her left arm, has not been changed for 12 years per patient Chronic low back pain 27 2719568 M54.50 Would like to see about prescripti on for Tramadol. 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 Congestive heart failure 37032799 I50.9 Follows with Cardiology . Chronic ob structive pulmonary disease 25556240 J44.9 Uses Breo. Secondary hyperaldosteronism 64830238 E26.1 Currently on dialysis. Angina pectoris 38589371 0 I20.9 Follows with cardiology , has nitrostat, recent stent. Amputated toe 155105316 Z89.429 Follows with podiatry. Chronic re current major depressive disorder 0338546 F33.1 Continue Lexapro. [id number] SUZANNE HEATON [facility] ([facility]) [address] [place] [id number] 05/01/2024 11:41:02 05/01/2024 13:20:39 Chronic chest pain 6127349228 83612 R07.9 Encouraged her mother to contact cardiology for follow-up. Essential hypertension 26896062 I10 Monitor at home. Restart Coreg. Abnormal vision 5009715 H54.7 [id number] SUZANNE HEATON [facility] ([facility]) [address] [place] [id number] 07/01/2024 13:56:52 07/01/2024 15:11:16 Essential hypertension 10119856 I10 Blood pressure this am was 125/80. Type 1 mainor betes mellitus 45222342 E10.[address] Ortega. Mixed anxi ety and depressive disorder 785646085 F41.8 Swelling of lower leg 44 3062315 R22.40 Hypoxemic respiratory failure 9660008594 8930594 J96.91 Uses oxygen at home as needed. 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 Depressive disorder 3548 9007 F33.1 Continue escitalopr am. 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 Congestive heart failure 08464114 I50.9 I50.30 Follows with Cardiology . Chronic ki dney disease stage 5 101066770 N18.5 Z99.2 Currently on dialysis. Amputated toe 001053172 Z89.429 Follows with podiatry. Low back pain 964121466 M54.50 Gabapentin . Hypertensi ve heart and renal disease with (congestive) heart failure 664423266 I13.2 Follows with Cardiology . Chronic ob structive pulmonary disease 74916156 J44.9 Uses Breo. Chronic ki dney disease due to type 2 diabetes mellitus 7876495459 08 N18.6 Currently on dialysis. [id number] SUZANNE HEATON [facility] ([facility]) [address] [place] [id number] 09/16/2024 09:15:48 09/16/2024 11:21:40 Coronary arteriosclerosis 83310160 I25.10 Recent stent placement. Anemia 680966002 D64.9 Acute supp urative otitis media without spontaneous rupture of ear drum 43340654 H66.001 Pain in bi lateral legs 2505840282 2206319 M79.604 M79.605 She has been taking 100mg three times daily but feels like it needs to be increased. [id number] SUZANNE HEATON [facility] ([facility]) [address] [place] [id number] 10/05/2024 10:02:53 10/05/2024 11:11:59 Coronary atherosclerosis 506888181 I25.10 She has 8 stents now. Mixed anxi ety and depressive disorder 122036100 F41.8 She has been having vivid dreams lately revolving around her brother who recently as well as her daughter who . Hospital i npatient stay within past 30 days 9086966773 106 Z76.89 [id number] SUZANNE HEATON [facility] ([facility]) [address] [place] [id number] 5 11/27/2024 09:57:25 11/27/2024 10:57:38 Essential hypertension 23567718 I10 Blood pressure this am was 179/112 at home, in office is 150/80. Afternoon readings have been good. Type 1 mainor betes mellitus 40350680 E10.[address] Ortega. Pain in bi lateral legs 4566386966 0794507 M79.604 M79.605 Anxiety 11081489 F41.8 [id number] Unable to lay still for MRI. Will send in clonazepam to take prior to procedure. [id number] SUZANNE HEATON [facility] ([facility]) [address] [place] [id number] 01/06/2025 11:45:44 01/06/2025 13:58:55 Chronic chest pain 1979475930 49711 R07.9 G89.29 492508 Chronic ki dney disease stage 5 897418835 N18.5 Z99.2 Currently on dialysis. Coronary arteriosclerosis 29962674 I25.10 Recent stent placement. Follow-up with cardiology next week. Will discuss chest pain with them as well. [id number] SUZANNE HEATON [facility] ([facility]) [address] [place] [address] 03/03/2025 12:06:42 03/03/2025 14:00:46 Neuropathy due to diabetes mellitus 469056215 E11.40 Decrease gabapentin to 100mg three times daily. Chronic renal failure 90 146686 N18.5 05722528 Dialysis. Hyperkalemia 74490105 E8 7.5 9805 Labs checked yesterday at Dialysis. Atypical chest pain 1025 04829 R07.89 [id number] Recurrent. Following with cardiology . Recently started Isosorbide . History of abnormal cervical Papanicolaou smear [id number] Z87.42 [id number] Health Concerns Section Related Observation LastModified by Organization Detai ls LastModified Time None Recorded Concern Status LastModified by Organization Details LastModified Time None Recorded Advance Directives Directive None Recorded Payers Insurance Date Sequence Insurance Name Policy Number Policy Varela Covered Member ID Varela Member ID Guarantor Name 02/22/2025 [place] - [facility] (MEDICARE) Donita Aguilar [id number] Donita Aguilar 02/22/2025 [place] [facility] Donita Aguilar [id number] Donita Aguilar 02/22/2025 2 [place] Donita Aguilar [id number] Donita Aguilar 02/22/2025 1 [place]: [facility] Donita Aguilar [id number] Donita Aguilar 12/07/2024 1 [facility] ([place] [facility] Donita Aguilar [id number] Donita Aguilar Notes Date Note Type Note [...] trauma,no recent swimming,no dental problems, andnon-smoker. ELIZABETH HOUSER [address], [id number], [facility] 09/16/2024 11:21:13 5 text/htm l [...] not adhere to lifestyle changes. ELIZABETH HOUSER [address], [phone], [facility] 10/05/2024 10:57:13 5 text/htm l [...] reportsmyocardial infarction,end-stage renal disease, anddiabetes. ELIZABETH HOUSER, [address], [address], [facility] 11/27/2024 11:31:59 5 text/htm l Angina/Chest PainReported by PatientIFor quality, patient reportssqueezingandsoreness. For location, patient reportsmidsternal. For severity, patient reportsmoderate. SARA HEATON[address], [phone], [facility] 01/06/2025 12:54:30 5 text/htm l DyspneaReported by PatientIFor quality, patient reportssqueezing,tightness,p ressure,can't catch breath,breathlessness,inabil ity to take a deep breath, andhurts to breathe. For associated symptoms, patient reportsfever,chills,weakness ,hoarseness, anddecrease in exercise capacity. For severity, patient reportsmoderateandlimits activity. For duration, patient reportsfor 2 weeks. For onset/timing, patient reportswith exertion. For pulmonary disease history, patient reportshistory of pulmonary disease. Hospital follow up 02/27/25 sob,kidney issues. wants gabapentin lowered back to 100mg. ELIZABETH HOUSER, [employer] [address] [place] [address], [phone], [facility] 03/03/2025 13:06:19 OBGyn Episode No OBEpisode recorded.
--- NOTE | 2025-03-28 03:30 | XRR_ITS ---
PROCEDURE INFORMATION: Exam: XR Chest Exam date and time: 03/28/2025 03:32 AM Age: 39 years old Clinical indication: Chest pressure; Prior surgery; Surgery date: 6+ months; Surgery type: Coronary stents. Gb; C/O chest pain; Additional info: Cp TECHNIQUE: Imaging protocol: Radiologic exam of the chest. Views: 1 view. COMPARISON: CR (CHEST, ) 03/21/2025 07:26 PM FINDINGS: Lungs: Low lung volumes with central bronchovascular crowding. No airspace consolidation. Pleural spaces: Unremarkable. No pleural effusion. No pneumothorax. Heart/Mediastinum: Cardiac size and configuration is stable. Coronary artery calcifications. Vasculature: Atherosclerotic vascular disease. Bones/joints: Osteopenia. Soft tissues: Surgical clips in the left axillary region. XR/XR chest 1V portable [id number] IMPRESSION: No acute findings.
[2025-03-28 03:50] LABS: Hematocrit 29.0 % (36-47); Hemoglobin 9.50 g/dL (11.27-16.99); Mean Corpuscular HGB Conc 32.8 g/dL (30-55); Mean Corpuscular Hemoglobin 31.1 pg (27-33); Mean Corpuscular Volume 95.1 fl (85-98); Nucleated Red Blood Cells % 0 %; Platelet Count 164 10^3/cmm (157-399); Red Blood Count 3.05 10^6/uL (3.85-5.65); White Blood Count 5.15 10^3/uL (3.29-11.43)
--- NOTE | 2025-03-28 03:56 | W.ED.CHESTPA ---
Documented by User: Jak Saldana Thuan, DO 03/28/25 19:52 HPI - Chest Pain General: Chief Complaint: Chest Pain Stated Complaint: Chest Pain Time Seen by Provider: 03/28/25 03:27 History of Present Illness: Patient is a 39-year-old female with end-stage renal disease who presents to the emergency department at approximately 4:00 AM with chest pain that began around midnight. The pain is described as radiating up her neck, jaw, and back, as well as into her arm. She reports feeling tired earlier in the day but otherwise was feeling okay. The patient had dialysis yesterday morning at 06:45 AM which reportedly went well. Prior to arrival, she took one nitroglycerin tablet and a muscle relaxer without relief of symptoms. She also reports some nausea, elevated blood glucose levels that have been difficult to control tonight, and a dry cough. The patient notes difficulty taking deep breaths, describing it as an inability to 'get air in' rather than pain with inspiration. The patient was brought in by her caregiver who states they were instructed to bring her to the hospital if she experienced chest pain. Related Data Home Medications ?Medication ?Instructions ?Recorded ?Confirmed gabapentin 100 mg capsule 100 mg PO TID 12/27/23 03/15/25 clopidogrel 75 mg tablet 75 mg PO DAILY 04/28/24 03/15/25 escitalopram oxalate 20 mg tablet 20 mg PO DAILY anxiety 02/14/25 03/15/25 folic acid 1 mg tablet 1 mg PO DAILY 02/14/25 03/15/25 hydralazine 25 mg tablet 12.5 mg PO BID 02/14/25 03/15/25 tizanidine 4 mg tablet 4 mg PO Q6H PRN Muscle Spasm 02/14/25 03/15/25 nitroglycerin 0.4 mg sublingual See Rx Instructions .Route .COMPLEX 02/22/25 03/15/25 tablet Previous Rx's ?Medication ?Instructions ?Recorded blood-glucose sensor (Dexcom G6 #3 ea 06/12/22 Sensor device) blood-glucose transmitter (Dexcom #1 ea 06/12/22 G6 Transmitter device) blood-glucose,television receiver analyzer,cont #1 ea 06/12/22 (Dexcom G6 Tenant Relations Coordinator) sevelamer carbonate 800 mg tablet 800 mg PO TID #90 tabs 09/16/23 aspirin 81 mg tablet,delayed 81 mg PO QAM 30 days #30 tabs 03/28/24 release atorvastatin 40 mg tablet 40 mg PO BEDTIME 30 days #30 tabs 03/28/24 AFO brace #1 ea 04/20/24 diabetic shoes with 3 inserts #1 ea 04/20/24 amlodipine 5 mg tablet 5 mg PO DAILY #30 tabs 09/30/24 bumetanide 1 mg tablet See Rx Instructions .Route 09/30/24 .COMPLEX #60 tabs insulin aspart U-100 100 unit/mL See Rx Instructions .Route 12/28/24 (3 mL) subcutaneous pen (Novolog .COMPLEX #15 mL FlexPen U-100 Insulin aspart) isosorbide mononitrate 30 mg 30 mg PO DAILY #30 tabs 02/26/25 tablet,extended release 24 hr oxycodone 5 mg tablet 5 mg PO Q8H PRN pain #20 tabs 03/04/25 Allergies Allergy/AdvReac Type Severity Reaction Status Date / Time acetaminophen AdvReac Mild ADR-Gastrointestinal Verified 03/15/25 10:25 Upset [facility] ED PFS: Medical History (Updated 03/28/25 @ 05:12 by Jak Larose DO) Chest pain Diabetes mellitus HTN (hypertension) HTN (hypertension), benign Hyperkalemia Headache Accelerated hypertension Uncontrolled type 1 diabetes mellitus ESRD (end stage renal disease) Dialysis complication Hypoglycemia Hemodialysis catheter dysfunction Colitis End stage renal disease on dialysis COPD (chronic obstructive pulmonary disease) Transaminitis Intractable nausea and vomiting Hyperlipidemia CHF (congestive heart failure), NYHA class III Pulmonary hypertension CAD (coronary artery disease) Neurogenic bladder COVID-19 Tobacco dependence Drug abuse Anemia Community acquired pneumonia Esophagitis Long-term insulin use History of pancreatitis Celiac disease Recurrent UTI Non-alcoholic fatty liver disease Arnold-Chiari malformation Diabetic gastroparesis -continue Reglan Diabetic neuropathy associated with type 1 diabetes mellitus Headache, common migraine, intractable, with status migrainosus Pleural effusion 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 History of lung surgery -s/p LLL lobectomy secondary to cavitary pneumonia (2017) History of endoscopy History of cholecystectomy Family History Grandfather Diabetes Mother CAD (coronary artery disease) Diabetes Heart disease Hypertension Brother Acute lymphoblastic leukemia (ALL) in child Grandmother Thyroid disease Denies family history of Colon cancer Ovarian cancer Prostate cancer Hyperlipidemia Breast cancer Uterine cancer Stroke Social History Smoking and tobacco/nicotine status: former use of tobacco/nicotine Quit status (tobacco/nicotine): has quit using Former quit date comment: She previously smoked <1/2 PPD, quit July 2023. Second hand smoke exposure: Yes Alcohol intake: never Substance/Drug Use: current Household members: children Housing: House Marital status: Single Current occupational status: unemployed Female Reproductive History: Spontaneous abortions: No Physical Exam Const: COMMON NORMALS: no acute distress GENERAL APPEARANCE: cooperative; not ill appearing and not frail appearing HENMT: COMMON NORMALS: normocephalic, atraumatic and Normal external nose present HEAD & SCALP: normocephalic and atraumatic FACE & SINUS: normal facial exam and face symmetric NOSE: Normal external nose present Eye: COMMON NORMALS: Equal, round and reactive pupils present and EOMs intact bilaterally PUPIL: Yes Equal, round and reactive pupils present Neck/C-Spine: GENERAL: Yes trachea midline Chest: CHEST: Yes Symmetrical chest wall rise Resp: COMMON NORMALS: normal respiratory effort, No retractions, No use of accessory muscles and clear to auscultation bilaterally AUSCULTATION: clear to auscultation bilaterally Cardio: COMMON NORMALS: regular rate and regular rhythm RATE: regular rate RHYTHM: regular rhythm GI: COMMON NORMALS: Normal to inspection, nondistended, normoactive bowel sounds present Extremity: COMMON NORMALS: no pedal edema Neuro: JEET COMA SCALE: document GCS findings Jeet coma scale eye opening: Spontaneous [place] coma scale verbal response: Orientated [place] coma scale motor response: Obey commands [place] coma scale total score: 15 SENSORY EXAM: Yes extremities (intact) Psych: COMMON NORMALS: speech normal SPEECH: Yes normal speech Skin: COMMON NORMALS: no rashes or lesions noted GENERAL SKIN EXAM: no rashes or lesions noted Course Vital Signs: Vital signs: Vital Signs Temperature 98.2 F 03/28/25 03:08 Pulse Rate 83 03/28/25 06:06 Respiratory Rate 16 03/28/25 06:06 Blood Pressure 120/72 03/28/25 06:06 Pulse Oximetry 95 03/28/25 06:06 Oxygen Delivery Me thod Room Air 03/28/25 04:47 MDM - Chest Pain Medical Decision Making EKG shows a sinus rhythm with a rate of 66 IA interval QRS duration and QTc are all normal. No ST wave changes. [place] is normal. EKG is timed at 0310. CBC shows a hemoglobin stable at 9.5. Chest x-ray is free of infiltrate. Minimal pulmonary vascular congestion. Lab Data 03/28/25 03:45 03/28/25 03:45 Radiology Impressions Chest X-Ray 03/28/25 03:30 IMPRESSION: No acute findings. Laboratory Results WBC 5.15 10^3/uL (3.29-11.43) 03/28/25 03:45 RBC 3.05 10^6/uL (3.85-5.65) L 03/28/25 03:45 Hgb 9.50 g/dL (11.27-16.99) L 03/28/25 03:45 Hct 29.0 % (36-47) L 03/28/25 03:45 MCV 95.1 fl (85-98) 03/28/25 03:45 MCH 31.1 pg (27-33) 03/28/25 03:45 MCHC 32.8 g/dL (30-55) 03/28/25 03:45 RDW 13.3 % (12.1-15.1) 03/28/25 03:45 Plt Count 164 10^3/cmm (157-399) 03/28/25 03:45 MPV 10.0 fL (7.4-10.4) 03/28/25 03:45 Neut % (Auto) 55.1 % 03/28/25 03:45 Lymph % (Auto) 30.7 % 03/28/25 03:45 [place] % (Auto) 7.4 % 03/28/25 03:45 Eos % (Auto) 5.6 % 03/28/25 03:45 Baso % (Auto) 1.0 % 03/28/25 03:45 Neut # (Auto) 2.84 10^3/uL (1.8-7.7) 03/28/25 03:45 Lymph # (Auto) 1.6 10^3/uL (0.8-4.8) 03/28/25 03:45 [place] # (Auto) 0.4 10^3/uL (0.2-0.9) 03/28/25 03:45 Eos # (Auto) 0.3 10^3/uL (0.0-0.8) 03/28/25 03:45 Baso # (Auto) 0.1 10^3/uL (0.0-0.1) 03/28/25 03:45 Nucleated RBC % (auto) 0 % 03/28/25 03:45 Nucleated RBCs # 0.0 /100WBC 03/28/25 03:45 Sodium 138 mmol/L (136-145) 03/28/25 03:45 Potassium 4.2 mmol/L (3.5-5.1) 03/28/25 03:45 Chloride 96 mmol/L (98-107) L 03/28/25 03:45 Carbon Dioxide 31 mmol/L (22-29) H 03/28/25 03:45 Anion Gap 15.2 (5-19) 03/28/25 03:45 BUN 12 mg/dL (6-20) 03/28/25 03:45 Creatinine 3.8 mg/dL (0.5-0.9) H 03/28/25 03:45 GFR Calculation 13.3 mL/min (90-130) L 03/28/25 03:45 Glucose 217 mg/dL (65-115) H 03/28/25 03:45 Calculated Osmolality 292 mOsm/kg (285-295) 03/28/25 03:45 Calcium 8.9 mg/dL (8.5-10.5) 03/28/25 03:45 Total Bilirubin 0.3 mg/dL (0.15-1.2) 03/28/25 03:45 AST 13 U/L (0-32) 03/28/25 03:45 ALT 15 U/L (0-33) 03/28/25 03:45 Alkaline Phosphatase 176 U/L (35-105) H 03/28/25 03:45 Troponin T Baseline 185 ng/L (0-10) H* 03/28/25 03:45 Troponin T 120 Minute 185.6 ng/L (0-10) H 03/28/25 05:29 Delta Troponin T 0.6 ABS# (0-10) 03/28/25 05:29 Total Protein 6.9 g/dL (6.6-8.7) 03/28/25 03:45 Albumin 3.7 g/dL (3.5-5.2) 03/28/25 03:45 Globulin 3.2 g/dL (1.3-4.6) 03/28/25 03:45 Discharge Plan Discharge Patient Disposition: Home Clinical Impression: Chest pain, Diastolic heart failure secondary to hypertension Condition: Stable Prescriptions: No Action (DME) AFO brace See Rx Instructions .Route .MEDSUPPLY Qty: 1 0RF Rx Instructions: As directed to the shoe guys ([facility] diabetic shoes with 3 inserts See Rx Instructions .Route .MEDSUPPLY Qty: 1 0RF Rx Instructions: As directed to the shoe guys ([facility] [place]) Dexcom G6 Tenant Relations Coordinator Misc See Rx Instructions .Route Qty: 1 0RF Rx Instructions: As directed ([facility]) Dexcom G6 Sensor Device See Rx Instructions .Route Qty: 3 0RF Rx Instructions: As directed ([facility] [place]) Dexcom G6 Transmitter Device See Rx Instructions .Route Qty: 1 0RF Rx Instructions: As directed atorvastatin 40 mg tablet 40 mg PO BEDTIME 30 Days Qty: 30 0RF aspirin 81 mg tablet,delayed release (DR/EC) 81 mg PO QAM 30 Days Qty: 30 0RF amlodipine 5 mg Tablet 5 mg PO DAILY Qty: 30 0RF bumetanide 1 mg tablet See Rx Instructions .ROUTE .COMPLEX Qty: 60 0RF Rx Instructions: TAKE 1 TABLET BY MOUTH twice DAILY ON NON-DIALYSIS DAYS sevelamer carbonate 800 mg Tablet 800 mg PO TID Qty: 90 0RF gabapentin 100 mg Capsule 100 mg PO TID clopidogrel 75 mg tablet 75 mg PO DAILY insulin aspart U-100 [Novolog FlexPen U-100 Insulin] 100 unit/mL (3 mL) insulin pen See Rx Instructions .ROUTE .COMPLEX Qty: 15 0RF Rx Instructions: Inject 3 times daily, subcut, after meals, based on low-dose sliding scale. tizanidine 4 mg tablet 4 mg PO Q6H PRN (Reason: Muscle Spasm) hydralazine 25 mg tablet 12.5 mg PO BID folic acid 1 mg tablet 1 mg PO DAILY escitalopram oxalate 20 mg tablet 20 mg PO DAILY nitroglycerin 0.4 mg tablet, sublingual See Rx Instructions .ROUTE .COMPLEX Rx Instructions: DISSOLVE ONE TABLET UNDER THE TONGUE EVERY 5 MINUTES NEEDED FOR CHEST PAIN. DO NOT EXCEED A TOTAL OF 3 DOSES IN 15 MINUTES. isosorbide mononitrate 30 mg tablet extended release 24 hr 30 mg PO DAILY Qty: 30 0RF oxycodone 5 mg tablet 5 mg PO Q8H PRN (Reason: pain) Qty: 20 0RF Discharge Orders: Discharge ED (Routine); Ordered 03/28/25 Ordered By: Ronny Ayala Referrals: Elizabeth Dougherty FNP [Primary Care Provider, Unknown] - 1-3 days Discharge Diet: Advance as tolerated Discharge Activity: Resume usual activity Patient Instructions: Chest Pain (ED) Activity Restrictions/Additional Instructions: Call your doctor Saturday morning for a follow-up appointment. Further outpatient testing or management will likely be needed. Return for problems. Dialysis as scheduled. Print Language: Khmer Coding Level of Care Code ED Scale Mechanic for Chg Fwd Heart Score HEART Score RESULT HEART Score: 5 Documented by User: Ronny Ayala MD 03/28/25 06:02 HPI - Chest Pain General: Chief Complaint: Chest Pain Stated Complaint: Chest Pain Time Seen by Provider: 03/28/25 03:27 Related Data Home Medications ?Medication ?Instructions ?Recorded ?Confirmed gabapentin 100 mg capsule 100 mg PO TID 12/27/23 03/15/25 clopidogrel 75 mg tablet 75 mg PO DAILY 04/28/24 03/15/25 escitalopram oxalate 20 mg tablet 20 mg PO DAILY anxiety 02/14/25 03/15/25 folic acid 1 mg tablet 1 mg PO DAILY 02/14/25 03/15/25 hydralazine 25 mg tablet 12.5 mg PO BID 02/14/25 03/15/25 tizanidine 4 mg tablet 4 mg PO Q6H PRN Muscle Spasm 02/14/25 03/15/25 nitroglycerin 0.4 mg sublingual See Rx Instructions .Route .COMPLEX 02/22/25 03/15/25 tablet Previous Rx's ?Medication ?Instructions ?Recorded blood-glucose sensor (Dexcom G6 #3 ea 06/12/22 Sensor device) blood-glucose transmitter (Dexcom #1 ea 06/12/22 G6 Transmitter device) blood-glucose,television receiver analyzer,cont #1 ea 06/12/22 (Dexcom G6 Tenant Relations Coordinator) sevelamer carbonate 800 mg tablet 800 mg PO TID #90 tabs 09/16/23 aspirin 81 mg tablet,delayed 81 mg PO QAM 30 days #30 tabs 03/28/24 release atorvastatin 40 mg tablet 40 mg PO BEDTIME 30 days #30 tabs 03/28/24 AFO brace #1 ea 04/20/24 diabetic shoes with 3 inserts #1 ea 04/20/24 amlodipine 5 mg tablet 5 mg PO DAILY #30 tabs 09/30/24 bumetanide 1 mg tablet See Rx Instructions .Route 09/30/24 .COMPLEX #60 tabs insulin aspart U-100 100 unit/mL See Rx Instructions .Route 12/28/24 (3 mL) subcutaneous pen (Novolog .COMPLEX #15 mL FlexPen U-100 Insulin aspart) isosorbide mononitrate 30 mg 30 mg PO DAILY #30 tabs 02/26/25 tablet,extended release 24 hr oxycodone 5 mg tablet 5 mg PO Q8H PRN pain #20 tabs 03/04/25 Allergies Allergy/AdvReac Type Severity Reaction Status Date / Time acetaminophen AdvReac Mild ADR-Gastrointestinal Verified 03/15/25 10:25 Upset PFS ED PFS: Medical History (Updated 03/28/25 @ 05:12 by Jak Larose DO) Chest pain Diabetes mellitus HTN (hypertension) HTN (hypertension), benign Hyperkalemia Headache Accelerated hypertension Uncontrolled type 1 diabetes mellitus ESRD (end stage renal disease) Dialysis complication Hypoglycemia Hemodialysis catheter dysfunction Colitis End stage renal disease on dialysis COPD (chronic obstructive pulmonary disease) Transaminitis Intractable nausea and vomiting Hyperlipidemia CHF (congestive heart failure), NYHA class III Pulmonary hypertension CAD (coronary artery disease) Neurogenic bladder COVID-19 Tobacco dependence Drug abuse Anemia Community acquired pneumonia Esophagitis Long-term insulin use History of pancreatitis Celiac disease Recurrent UTI Non-alcoholic fatty liver disease Arnold-Chiari malformation Diabetic gastroparesis -continue Reglan Diabetic neuropathy associated with type 1 diabetes mellitus Headache, common migraine, intractable, with status migrainosus Pleural effusion 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 History of lung surgery -s/p LLL lobectomy secondary to cavitary pneumonia (2017) History of endoscopy History of cholecystectomy Family History Grandfather Diabetes Mother CAD (coronary artery disease) Diabetes Heart disease Hypertension Brother Acute lymphoblastic leukemia (ALL) in child Grandmother Thyroid disease Denies family history of Colon cancer Ovarian cancer Prostate cancer Hyperlipidemia Breast cancer Uterine cancer Stroke Social History Smoking and tobacco/nicotine status: former use of tobacco/nicotine Quit status (tobacco/nicotine): has quit using Former quit date comment: She previously smoked <1/2 PPD, quit July 2023. Second hand smoke exposure: Yes Alcohol intake: never Substance/Drug Use: current Household members: children Housing: House Marital status: Single Current occupational status: unemployed Physical Exam Neuro: JEET COMA SCALE: document GCS findings Jeet coma scale total score: 15 Course Vital Signs: Vital signs: Vital Signs Temperature 98.2 F 03/28/25 03:08 Pulse Rate 83 03/28/25 06:06 Respiratory Rate 16 03/28/25 06:06 Blood Pressure 120/72 03/28/25 06:06 Pulse Oximetry 95 03/28/25 06:06 Oxygen Delivery Me thod Room Air 03/28/25 04:47 MDM - Chest Pain Medical Decision Making EKG shows a sinus rhythm with a rate of 66 IA interval QRS duration and QTc are all normal. No ST wave changes. [place] is normal. EKG is timed at 0310. CBC shows a hemoglobin stable at 9.5. Chest x-ray is free of infiltrate. Minimal pulmonary vascular congestion. Took patient over from Dr. Larose pending 2-hour troponin. Patient has chronic chest pain with end-stage renal disease with multiple comorbidities seen here multiple times. Her pain here is improved 2-hour troponin has negative delta. Patient's had recent stress test and cath. She has no signs of ACS here. She has no signs of pulmonary emboli or aortic dissection. This is likely her chronic pain I feel she is stable for discharge did review her labs EKG patient understands agrees to plan Medical Records I reviewed the patient's medical records. Lab Data I reviewed the patient's lab results. 03/28/25 03:45 03/28/25 03:45 Radiology Impressions Chest X-Ray 03/28/25 03:30 IMPRESSION: No acute findings. Laboratory Results WBC 5.15 10^3/uL (3.29-11.43) 03/28/25 03:45 RBC 3.05 10^6/uL (3.85-5.65) L 03/28/25 03:45 Hgb 9.50 g/dL (11.27-16.99) L 03/28/25 03:45 Hct 29.0 % (36-47) L 03/28/25 03:45 MCV 95.1 fl (85-98) 03/28/25 03:45 MCH 31.1 pg (27-33) 03/28/25 03:45 MCHC 32.8 g/dL (30-55) 03/28/25 03:45 RDW 13.3 % (12.1-15.1) 03/28/25 03:45 Plt Count 164 10^3/cmm (157-399) 03/28/25 03:45 MPV 10.0 fL (7.4-10.4) 03/28/25 03:45 Neut % (Auto) 55.1 % 03/28/25 03:45 Lymph % (Auto) 30.7 % 03/28/25 03:45 [place] % (Auto) 7.4 % 03/28/25 03:45 Eos % (Auto) 5.6 % 03/28/25 03:45 Baso % (Auto) 1.0 % 03/28/25 03:45 Neut # (Auto) 2.84 10^3/uL (1.8-7.7) 03/28/25 03:45 Lymph # (Auto) 1.6 10^3/uL (0.8-4.8) 03/28/25 03:45 [place] # (Auto) 0.4 10^3/uL (0.2-0.9) 03/28/25 03:45 Eos # (Auto) 0.3 10^3/uL (0.0-0.8) 03/28/25 03:45 Baso # (Auto) 0.1 10^3/uL (0.0-0.1) 03/28/25 03:45 Nucleated RBC % (auto) 0 % 03/28/25 03:45 Nucleated RBCs # 0.0 /100WBC 03/28/25 03:45 Sodium 138 mmol/L (136-145) 03/28/25 03:45 Potassium 4.2 mmol/L (3.5-5.1) 03/28/25 03:45 Chloride 96 mmol/L (98-107) L 03/28/25 03:45 Carbon Dioxide 31 mmol/L (22-29) H 03/28/25 03:45 Anion Gap 15.2 (5-19) 03/28/25 03:45 BUN 12 mg/dL (6-20) 03/28/25 03:45 Creatinine 3.8 mg/dL (0.5-0.9) H 03/28/25 03:45 GFR Calculation 13.3 mL/min (90-130) L 03/28/25 03:45 Glucose 217 mg/dL (65-115) H 03/28/25 03:45 Calculated Osmolality 292 mOsm/kg (285-295) 03/28/25 03:45 Calcium 8.9 mg/dL (8.5-10.5) 03/28/25 03:45 Total Bilirubin 0.3 mg/dL (0.15-1.2) 03/28/25 03:45 AST 13 U/L (0-32) 03/28/25 03:45 ALT 15 U/L (0-33) 03/28/25 03:45 Alkaline Phosphatase 176 U/L (35-105) H 03/28/25 03:45 Troponin T Baseline 185 ng/L (0-10) H* 03/28/25 03:45 Troponin T 120 Minute 185.6 ng/L (0-10) H 03/28/25 05:29 Delta Troponin T 0.6 ABS# (0-10) 03/28/25 05:29 Total Protein 6.9 g/dL (6.6-8.7) 03/28/25 03:45 Albumin 3.7 g/dL (3.5-5.2) 03/28/25 03:45 Globulin 3.2 g/dL (1.3-4.6) 03/28/25 03:45 All radiology interpretation(s) finalized by discharge Discharge Plan Discharge Patient Disposition: Home Clinical Impression: Chest pain, Diastolic heart failure secondary to hypertension Condition: Stable Prescriptions: No Action ([facility]) AFO brace See Rx Instructions .Route .MEDSUPPLY Qty: 1 0RF Rx Instructions: As directed to the shoe guys ([facility] [place]) diabetic shoes with 3 inserts See Rx Instructions .Route .MEDSUPPLY Qty: 1 0RF Rx Instructions: As directed to the shoe guys ([facility] [place]) Dexcom G6 Tenant Relations Coordinator Misc See Rx Instructions .Route Qty: 1 0RF Rx Instructions: As directed ([facility] [place]) Dexcom G6 Sensor Device See Rx Instructions .Route Qty: 3 0RF Rx Instructions: As directed ([facility] [place]) Dexcom G6 Transmitter Device See Rx Instructions .Route Qty: 1 0RF Rx Instructions: As directed atorvastatin 40 mg tablet 40 mg PO BEDTIME 30 Days Qty: 30 0RF aspirin 81 mg tablet,delayed release (DR/EC) 81 mg PO QAM 30 Days Qty: 30 0RF amlodipine 5 mg Tablet 5 mg PO DAILY Qty: 30 0RF bumetanide 1 mg tablet See Rx Instructions .ROUTE .COMPLEX Qty: 60 0RF Rx Instructions: TAKE 1 TABLET BY MOUTH twice DAILY ON NON-DIALYSIS DAYS sevelamer carbonate 800 mg Tablet 800 mg PO TID Qty: 90 0RF gabapentin 100 mg Capsule 100 mg PO TID clopidogrel 75 mg tablet 75 mg PO DAILY insulin aspart U-100 [Novolog FlexPen U-100 Insulin] 100 unit/mL (3 mL) insulin pen See Rx Instructions .ROUTE .COMPLEX Qty: 15 0RF Rx Instructions: Inject 3 times daily, subcut, after meals, based on low-dose sliding scale. tizanidine 4 mg tablet 4 mg PO Q6H PRN (Reason: Muscle Spasm) hydralazine 25 mg tablet 12.5 mg PO BID folic acid 1 mg tablet 1 mg PO DAILY escitalopram oxalate 20 mg tablet 20 mg PO DAILY nitroglycerin 0.4 mg tablet, sublingual See Rx Instructions .ROUTE .COMPLEX Rx Instructions: DISSOLVE ONE TABLET UNDER THE TONGUE EVERY 5 MINUTES NEEDED FOR CHEST PAIN. DO NOT EXCEED A TOTAL OF 3 DOSES IN 15 MINUTES. isosorbide mononitrate 30 mg tablet extended release 24 hr 30 mg PO DAILY Qty: 30 0RF oxycodone 5 mg tablet 5 mg PO Q8H PRN (Reason: pain) Qty: 20 0RF Discharge Orders: Discharge ED (Routine); Ordered 03/28/25 Ordered By: Ronny Ayala Referrals: Elizabeth Dougherty FNP [Primary Care Provider, Unknown] - 1-3 days Discharge Diet: Advance as tolerated Discharge Activity: Resume usual activity Patient Instructions: Chest Pain (ED) Activity Restrictions/Additional Instructions: Call your doctor Saturday morning for a follow-up appointment. Further outpatient testing or management will likely be needed. Return for problems. Dialysis as scheduled. Print Language: Khmer Coding Level of Care Code ED Scale Mechanic for Chg Fwtanner Heart Score HEART Score Components History: Slightly Suspicous EKG: Non-specific Changes Age: Less than 45 yrs Risk Factors: >/=3 Risk Factors Troponin: Baseline Trop >45 ng/L HEART Score RESULT HEART Score: 5
[2025-03-28 04:07] VITALS: BP 173/85; PULSE 66; O2SAT 97
[2025-03-28 04:15] LABS: Troponin(5th) Baseline 185 ng/L (0-10)
[2025-03-28 04:42] VITALS: BP 178/91; PULSE 74
[2025-03-28] MEDS: HYDROmorphone 0.5 MG/0.5 ML INJ 1.5 MG IM (04:42)
[2025-03-28] MEDS: nitroglycerin 1 gm/inch oint Pkt 1.5 INCH TOPICAL (04:42)
[2025-03-28 04:45] VITALS: PULSE 70; RESP 20; O2SAT 98
[2025-03-28 04:47] VITALS: BP 178/91; PULSE 74; RESP 16; O2SAT 97
[2025-03-28 04:57] LABS: Alanine Aminotransferase 15 U/L (0-33); Albumin Level 3.7 g/dL (3.5-5.2); Alkaline Phosphatase 176 U/L (35-105); Anion Gap 15.2 (5-19); Aspartate Amino Transferase 13 U/L (0-32); Blood Urea Nitrogen 12 mg/dL (6-20); Calcium 8.9 mg/dL (8.5-10.5); Carbon Dioxide 31 mmol/L (22-29); Chloride 96 mmol/L (98-107); Globulin 3.2 g/dL (1.3-4.6); Glucose 217 mg/dL (65-115); Osmolality Calculated 292 mOsm/kg (285-295); Potassium 4.2 mmol/L (3.5-5.1); Sodium 138 mmol/L (136-145); Total Protein 6.9 g/dL (6.6-8.7)
[2025-03-28 04:58] LABS: Creatinine Clr Calc Pharmacy 17.0452
[2025-03-28 05:56] LABS: Troponin 5 2HR Delta 0.6 ABS# (0-10)
[2025-03-28 05:57] LABS: Troponin 5 2HR 185.6 ng/L (0-10)
[2025-03-28] MEDS: oxyCODONE-APAP 5-325 mg Tablet 2 TAB PO (06:00)
[2025-03-28 06:06] VITALS: BP 120/72; PULSE 83; RESP 16; O2SAT 95
== END 2025-03-28 06:07 | disposition home or self-care (01) ==
PROVIDERS: Emergency Provider Emergency Medicine; PCP Nurse Practitioner Family
DX: R07.9 Chest pain, unspecified (principal); Z79.82 Long term (current) use of aspirin; Z79.02 Long term (current) use of antithrombotics/antiplatelets; Z79.4 Long term (current) use of insulin; E10.22 Type 1 diabetes mellitus with diabetic chronic kidney disease; I13.2 Hypertensive heart and chronic kidney disease with heart failure and with stage 5 chronic kidney disease, or end stage renal disease; I50.30 Unspecified diastolic (congestive) heart failure; N18.6 End stage renal disease; Z99.2 Dependence on renal dialysis; E78.5 Hyperlipidemia, unspecified; J44.9 Chronic obstructive pulmonary disease, unspecified; I25.10 Atherosclerotic heart disease of native coronary artery without angina pectoris; Z87.891 Personal history of nicotine dependence
CPT/HCPCS: 36415; 71045; 80053; 84484; 85025; 93005; 94640; 96372; 99285; J1171; J9999; Q0162

== ENCOUNTER 2025-03-31 13:42 | Outpatient (CLI) | payer MEDICARE, MEDICAID, SELFPAY ==
[2025-03-31 15:13] LABS: Estmated Average Glucose 126; Hemoglobin A1C 6.0 % (4.0-6.0)
[2025-03-31 15:17] LABS: Alanine Aminotransferase 17 U/L (0-33); Albumin Level 3.7 g/dL (3.5-5.2); Alkaline Phosphatase 184 U/L (35-105); Anion Gap 16.8 (5-19); Aspartate Amino Transferase 19 U/L (0-32); Blood Urea Nitrogen 18 mg/dL (6-20); Calcium 8.9 mg/dL (8.5-10.5); Carbon Dioxide 27 mmol/L (22-29); Chloride 97 mmol/L (98-107); Cholesterol 85 mg/dL (0-200); Globulin 3.6 g/dL (1.3-4.6); Glucose 254 mg/dL (65-115); HDL Cholesterol 48 mg/dL (60-100); Osmolality Calculated 293 mOsm/kg (285-295); Potassium 4.8 mmol/L (3.5-5.1); Sodium 136 mmol/L (136-145); Total Protein 7.3 g/dL (6.6-8.7); Triglycerides 137 mg/dL (0-150)
== END 2025-03-31 13:43 | disposition home or self-care (01) ==
LOC: LAB 13:44
PROVIDERS: PCP Nurse Practitioner Family; Visit Provider Internal Medicine
DX: E78.2 Mixed hyperlipidemia (principal); E10.65 Type 1 diabetes mellitus with hyperglycemia
CPT/HCPCS: 36415; 80053; 80061; 83036

== ENCOUNTER → 2025-04-07 09:44 | Outpatient (BNVA) | payer MEDICARE, MEDICAID, SELFPAY | PROVIDERS: PCP Nurse Practitioner Family; Visit Provider Internal Medicine | DX: E10.649 Type 1 diabetes mellitus with hypoglycemia without coma (principal); E78.2 Mixed hyperlipidemia; E16.0 Drug-induced hypoglycemia without coma; T38.3X5A Adverse effect of insulin and oral hypoglycemic [antidiabetic] drugs, initial encounter; R74.01 Elevation of levels of liver transaminase levels; X58.XXXA Exposure to other specified factors, initial encounter | CPT/HCPCS: 99214 ==

== ENCOUNTER 2025-04-07 19:15 | Observation (INO) | payer MEDICARE, MEDICAID, SELFPAY ==
[2025-04-07 19:16] VITALS: BP 119/71; PULSE 70; TEMP 36.7; O2SAT 100
--- OUTSIDE RECORDS SUMMARY | 2025-04-07 19:21 | XMS_ITS | Encounter Summary ---
Author Organization [facility] Address [address] [place] [address] Care Team Providers Care Circular Ripsaw Operator Name Role Phone Shravan Jones DO Primary Care Provider [phone] Encounter Details Date Type Department Care Team (Latest Contact Info) Description 05/14/2003 [facility] [place] [address] Jimmy Tineo, CLIVES NO ADDRESS ON FILE UNSPEC DENTAL CARIES (Primary Dx); TOOTH POSITION ANOMALY Social History Tobacco Use Types Packs/Day Years Used Date Smoking Tobacco: Never Assessed Comments Unknown Sex and Gender Information Value Date Recorded Sex Assigned at Not on file Legal Sex Female 4:38 AM RESPIRATORY SUPPORT TECHNICIAN Gender Identity Not on file Sexual Orientation Not on file documented as of this encounter Plan of Treatment Not on file documented as of this encounter Visit Diagnoses Diagnosis Unspecified dental caries- Primary Anomalies of tooth position of fully erupted teeth documented in this encounter Care Teams Circular Ripsaw Operator Relationship Specialty Start Date End Date Shravan Jones DO [address] [address] PCP - General Family Practice 12/04/16 documented as of this encounter
--- OUTSIDE RECORDS SUMMARY | 2025-04-07 19:21 | XMS_ITS | Encounter Summary ---
Author Organization [facility], [facility] Address [address] [place] [address] Phone Care Team Providers Care Helicopter Dispatcher Name Role Phone Alexis Garcia MD Primary Care Provider [phone] Encounter Details Date Type Department Care Team (Late st Contact Info) Description 12/29/2024 TCM in Dialysis Clinic [facility], [facility] [address] [place] [address] Yann Lozano NP [address] [place] [address] Social History Tobacco Use Types [...] CDT Patient: Donita Aguilar : 1985 C: [facility] Note Type: Dialysis TCM Service Date: 12/29/2024 The patient was seen for a ztpz-wc-lfqf visit as part of Transitional Care Management services. Attending Marketing Specialist: MACHO JOHANSEN Dialysis Location: [facility] Schedule: Shift: 2 INTERACTIVE CONTACT This wkel-yf-teaw visit occurred within 2 business days of the patient?s discharge. COMMENTS: Seen on HD machine during dialysis HOSPITALIZATION SUMMARY Patient transitioned from: Hospital Patient transitioned to: Home Admit Date: 12/26/2024 Discharge Date: 12/28/2024 Discharged info reviewed: No outstanding diagnostic tests and treatments Reason for admission: Admission Dx: CP Discharge Dx: Non-cardiac chest pain ESRD Atherosclerotic heart disease of [place] coronary artery with other forms of angina [...] Three times a day With Meals. [facility] Allergies Allergen: acetaminophen Reaction: Nausea/Vomiting TREATMENT [...] to follow with cardiology, pcp, pulmonology and caustic room attendant as noted on discharge. EDUCATION Education [...] or secondary infection VISIT DIAGNOSES CPT Code 01959 - High complexity, seen within 7 days of discharge. I20.9 Angina pectoris (HCC) COMMENTS: Verified she has nitroglycerin on hand at home: reviewed appropriate usage. Instructed to call cardiology for follow up appointment K76.0 Fatty (change of) liver, not elsewhere classified COMMENTS: Newly dx on imaging. Per hospital records, has been referred to caustic room attendant. Monitor for liver dysfunction, assess for any needed support J18.9 Pneumonia, unspecified organism COMMENTS: Monitor for impaired perfusion, fever/chills, increased SOB. If symptoms present, send for CXray. Advised to call pulmonology for follow up as referred by hospital I25.118 Atherosclerotic heart disease of [place] coronary artery with other forms of angina pectoris COMMENTS: RCA is moderate size and caliber vessel which is dominant had proximal 40% stenosis. Left main has luminal irregularity with distal 10% stenosis. Cardiology recommended medical management. Negative for angina on assessment today Reviewed symptoms, usage of nitro: instructed to call cardiology for follow up appt. I29.576 Atherosclerosis of other coronary artery bypass graft(s) [...] on filedocumented in this encounter Care Teams Helicopter Dispatcher Relationship Specialty Start Date End Date Alexis Garcia MD [address] [place] [address] PCP - General Family Medicine 04/16/22 documented as of this encounter
--- OUTSIDE RECORDS SUMMARY | 2025-04-07 19:21 | XMS_ITS | Encounter Summary ---
Author Organization [facility], [facility] Address [address] [place] [address] Phone Care Team Providers Care Slot Service Specialist Name Role Phone Alexis Garcia MD Primary Care Provider [phone] Encounter Details Date Type Department Care Team (Late st Contact Info) Description 04/16/2022 Orders Only [facility] [address] [place] [address] Chronic kidney disease, Stage IV [...] (severe) documented in this encounter Care Teams Slot Service Specialist Relationship Specialty Start Date End Date Alexis Garcia MD [address] [place] [address] PCP - General Family Medicine 04/16/22 documented as of this encounter
--- OUTSIDE RECORDS SUMMARY | 2025-04-07 19:21 | XMS_ITS | Clinical Summary ---
Author Organization [facility] Address [address] [address] Care Team Providers Care Log Haul Operator Name Role Phone Alexis Garcia MD Primary Care Provider [phone] Encounters Date Type Department Care Team Description 04/01/2025 Orders Only [facility] [place], [facility] [address] [place] [address] Chey Navas MD 03/30/2025 Treatment [facility], [facility] [address] [place] [address] Karlene Cespedes NP End stage renal disease; Dependence on renal dialysis 03/25/2025 Treatment [facility], [facility] [address] [place] [address] Melissa Wiley NP End stage renal disease; Dependence on renal dialysis 03/25/2025 Orders Only [facility] [place], [facility] [address] [place] [address] Chey Navas MD 03/18/2025 Orders Only [facility] [address] [place] [address] Chey Navas MD 03/16/2025 [facility], [facility] [address] [place] [address] Chey Navas MD End stage renal disease; Dependence on renal dialysis 03/11/2025 Orders Only [facility] [place] [address] [place] [id number] Chey Navas MD 03/09/2025 [facility], [facility] [address] [place] [address] Melissa Wiley NP End stage renal disease; Dependence on renal dialysis 03/04/2025 Orders Only [facility], [facility] [address] [place] [address] Chey Navas MD 03/02/2025 Orders Only [facility], [facility] [address] [place] [address] Chey Navas MD 03/02/[address] [place] [address], [facility] [address] [place] [address] Melissa Wiley NP End stage renal disease; Dependence on renal dialysis 02/18/2025 Orders Only [facility], [facility] [address] [place] [address] Chey Navas MD 02/11/2025 Orders Only [facility], [facility] [address] [place] [address] Chey Navas MD 02/09/[address] [place], [place] [address]rology [facility], [facility] [address] [place] [address] Chey Navas MD End stage renal disease; Dependence on renal dialysis 02/04/2025 Orders Only [facility], [facility] [address] [place] [address] Chey Navas MD 02/02/[address] [place], [place] [address]rology [facility], [facility] [address] [place] [address] Karlene Cespedes NP End stage renal disease; Dependence on renal dialysis 01/28/[address] [place], [place] [address]rology [facility], [facility] [address] [place] [address] Melissa Wiley NP End stage renal disease; Dependence on renal dialysis 01/28/2025 Orders Only [facility], [facility] [address] [place] [address] Chey Navas MD 01/21/2025 Orders Only [facility], [facility] [address] [place] [address] Chey Navas MD 01/14/2025 Orders Only [facility], [facility] [address] [place] [address] Chey Navas MD 01/12/[address] [place] [address], [facility] [address] [place] [address] Chey Navas MD End stage renal disease; Dependence on renal dialysis 01/07/2025 Orders Only [facility], [facility] [address] [place] [address] Chey Navas MD 01/05/[address] [place] [address], [facility] [address] [place] [address] Karlene Cespedes NP End stage [...] Risk Dialysis Recombivax 3-dose series) 03/13/2001 03/13/2000, 10/10/2 000, 09/06/1999 Pneumococcal Vaccine: Peds ( 0 [...] Priority Date/Time Associated Diagnosis Comments HEMATOLOGY Routine 04/01/2025 [facility] RESULTS Routine 03/25/2025 HD KINETICS Routine 03/25/2025 POST CHEMISTRY Routine [...] 01/21/2025 HEMATOLOGY Routine 01/14/2025 HEMATOLOGY Routine 01/07/2025 from Last 3 Months Results * (ABNORMAL) HEMATOLOGY (04/01/2025) Only the most recent of13 resultswithin the time period is included. [facility] Hemoglobin 9.8(L) 12.0 - 16.0 g/dL [email or web address] Hemoglobin x 3 29.4(L) 36.0 - 48.0 % [email or web address] Reticulocyte Hemoglobin 30.5 25.4 - 31.8 pg [email or web address] 04/01/2025 04/02/2025 11: 03 AM CDT Narrative [facility] - 04/02/2025 Unless otherwise specified, test(s) performed at: [facility], [address] [place] [address] WOOD BARREL RECONDITIONER: Jose Luis France M.D. For any questions, please call customer service at FREQUENCY:OTHER Resulting Agency Comment Specimen source: Blood Chey Navas MD LAB BLOOD ORDERABLES Final Re sult [facility] See order comments or contact performing lab Unknown, [place] * HD KINETICS (03/25/2025) Only the most recent of3 resultswithin the time period is included. % Urea Reduction 79 65 - 80 % [facility] 03/25/2025 03/26/2025 11: 23 AM CDT Narrative Resulting Agency Comment Specimen source: Plasma us Chey Navas MD LAB BLOOD ORDERABLES Final Re sult Performing Organization Address [facility]/ZIP Co de Phone Number [facility]RA[email or web address] See order comments or contact performing lab Unknown, [place] * (ABNORMAL) POST CHEMISTRY (03/25/2025) Only the most recent of3 resultswithin the time period is included. BUN Post Dialysis 5(L) 6 - 19 mg/dL [facility] 03/25/2025 03/26/2025 11: 23 AM CDT Narrative [facility] - 03/26/2025 Unless otherwise specified, test(s) performed at: [facility], [address] [place] [address] WOOD BARREL RECONDITIONER: Jose Luis France M.D. For any questions, please call customer service at FREQUENCY:MONTHLY Resulting Agency Comment Specimen source: Plasma us Chey Navas MD LAB BLOOD ORDERABLES Final Re [facility] Performing Organization Address [facility] [[email or web address]] Co de Phone Number [facility]RA [email or web address] See order comments or contact performing lab Unknown, [place] * (ABNORMAL) [facility] Chemistry (03/25/2025) Only the most recent of5 resultswithin the time period is included. BUN [...] 03/26/2025 Unless otherwise specified, test(s) performed at: [facility], [address] [place] [address] WOOD BARREL RECONDITIONER: Jose Luis France M.D. For any questions, please call customer service at FREQUENCY:MONTHLY Resulting Agency Comment Specimen source: Serum Chey Navas MD LAB BLOOD ORDERABLES Final Re sult [facility] See order comments or contact performing lab Unknown, [place] * [facility] Lab Results (03/25/2025) Only the most recent of3 resultswithin the time period is included. nPCR_HD 0.55 [facility] spKt/V (Daugirdas II) 1.80 [facility] eKt/V Gotch 1.54 [facility] [place] eNPCR 0.52 [facility] eKdrt/V 1.54 [facility] PCR 27.03 [facility] WSTDKT/V 2.6 [facility] spKt/V Gotch 1.82 [facility] eKt/V ([place]) 1.55 [facility] 03/25/2025 03/25/2025 [facility] [place]ing Provider LAB BLOOD ORDERABLES Final Result [facility] Contact Performing lab Unknown, [place] * (ABNORMAL) SPECIAL CHEMISTRY (03/02/2025) Hemoglobin A1C 6.5(H) 4.8 - 5.9 % [email or web address] 03/02/2025 03/03/2025 11: 04 AM CDT Narrative Resulting Agency Comment Specimen source: Blood Chey Navas MD LAB BLOOD BANK TEST ORDERABLE S Final Result Performing Organization Address [facility] de Phone Number [facility] See order comments or contact performing lab Unknown, [place] * IMMUNO CHEMISTRY (03/02/2025) Pathologist [facility] Hepatitis C Antibody Nonreactive Nonreactive [facility] Comment: No HCV antibody detected. The above test result was obtained using Siemens Centaur XP chemiluminescent method. Results obtained with different assay methods or kits cannot be used interchangeably. S/CO Ratio 0.03 0.00 - 0.79 [facility] Comment: s/co ratio Interpretation Supplemental testing <0.80 Nonreactive No further testing required. 0.80-0.99 Equivocal HCV RNA Quantitative Real-Time PCR is recommended. 1.00->11.00 Reactive HCV RNA Quantitative Real-Time PCR is recommended to distinguish active from resolved cases. 03/02/2025 03/03/2025 11: 29 AM CDT Narrative [facility] - 03/03/2025 Unless otherwise specified, test(s) performed at: [facility], [address] [place], [place] [id number] WOOD BARREL RECONDITIONER: Jose Luis France M.D. For any questions, please call customer service at FREQUENCY:MONTHLY Resulting Agency Comment Specimen source: Serum us Chey Navas MD LAB BLOOD ORDERABLES Final Re sult Performing Organization Address City/[facility]/ZIP Co de Phone Number [facility] See order comments or contact performing lab Unknown, [place] * TRACE ELEMENTS (03/02/2025) Aluminum 5 0 - 10 mcg/L [facility] Comment: This test was developed and its performance characteristics determined by [facility]. It has not been cleared or approved by the FDA. The laboratory is regulated under CLIA as qualified to perform high complexity testing. This test is used for clinical purposes. It should not be regarded as investigational or for research. 03/02/2025 03/03/2025 10: 54 AM CDT Narrative [facility] - 03/03/2025 Unless otherwise specified, test(s) performed at: [facility], [address] [place] [address] WOOD BARREL RECONDITIONER: Jose Luis France M.D. For any questions, please call customer service at FREQUENCY:MONTHLY Resulting Agency Comment Specimen source: Serum us Chey Navas MD LAB BLOOD ORDERABLES Final Re sult [facility] See order comments or contact performing lab Unknown, [place] from Last 3 Months Insurance [place], [place] [id number] Medicaid [place] ([id number]) Medicare Care Teams Log Haul Operator Relationship Specialty Start Date End Date Alexis Garcia MD [address] [place] [address] PCP - General Family Medicine 04/16/22
--- OUTSIDE RECORDS SUMMARY | 2025-04-07 19:21 | XMS_ITS | Encounter Summary ---
Author Organization [facility] Address [address] [place] [address] Phone Care Team Providers Care Farm General Manager Name Role Phone Alexis Garcia MD Primary Care Provider [phone] Encounter Details Date Type Department Care Team (Late st Contact Info) Description 04/01/2025 Orders Only [facility] [address] [place] [address] Chey Navas MD [address] [place] [address] Social History Tobacco Use Types [...] Date/Time Associated Diagnosis Comments HEMATOLOGY Routine 04/01/2025 documented in this encounter Results * (ABNORMAL) HEMATOLOGY (04/01/2025) Hemoglobin 9.8(L) 12.0 - 16.0 g/dL [facility] Hemoglobin x 3 29.4(L) 36.0 - 48.0 % [facility] Reticulocyte Hemoglobin 30.5 25.4 - 31.8 pg [facility] 04/01/2025 04/02/2025 11: 03 AM CDT Narrative [facility] - 04/02/2025 Unless otherwise specified, test(s) performed at: [facility], [address] [place] [address] SEWING PATTERN LAYOUT TECHNICIAN: Jose Luis France M.D. For any questions, please call customer service at FREQUENCY:OTHER Resulting Agency Comment Specimen source: Blood us Chey Navas MD LAB BLOOD ORDERABLES Final Re sult [email or web address] See order comments or contact performing lab Unknown, [place] documented in this encounter Visit Diagnoses Not on filedocumented in this encounter Care Teams Farm General Manager Relationship Specialty Start Date End Date Alexis Garcia MD [address] [place] [address] PCP - General Family Medicine 04/16/22 documented as of this encounter
--- OUTSIDE RECORDS SUMMARY | 2025-04-07 19:21 | XMS_ITS | Encounter Summary ---
Author Organization [facility] Address [address] [place] [address] Care Team Providers Care Solution Design Engineer Name Role Phone Shravan Jones DO Primary Care Provider Encounter Details Date Type Department Care Team (Late st Contact Info) Description 01/09/2017 Lab Requisition [facility] [address] [place] [address] Izabela Diamond MD NO ADDRESS [...] - 2.6 mg/dL 01/09/2017 5:53 AM T [facility] Blood 01/09/2017 3:15 AM CDT 01/09/2017 5:12 AM CDT [facility] - 01/09/2017 5:53 AM CDT Due to Technical Illustrations Map Inker update, MG+ reference range has changed from 1.8 - 2.4 mg/dL to the new reference range of 1.6 - 2.6 mg/dL. This will have limited patient impact. us Izabela Diamond MD CHEMISTRY ORDERABLES Final Res ult [facility] CLIA# [id number] [address] [place] [address] * (ABNORMAL) COMPREHENSIVE METABOLIC PANEL (01/09/2017 3:15 AM CDT) SODIUM 139 136 - 145 mmol/L 01/09/2017 5:53 AM CDT [facility] POTASSIUM 4.1 3.5 - 5.1 mmol/L 01/09/2017 5:53 AM T [facility] CHLORIDE 101 98 - 107 mmol/L 01/09/2017 5:53 AM T [facility] CO2 28 21 - 32 mmol/L 01/09/2017 5:53 AM T [facility] CALCIUM 8.8 8.4 - 10.1 mg/dL 01/09/2017 5:53 AM T [facility] BUN 18(H) 7 - 17 mg/dL 01/09/2017 5:53 AM T [facility] CREATININE 0.73 0.55 - 1.02 mg/dL 01/09/2017 5:53 AM T [facility] GLUCOSE 182(H) 74 - 106 mg/dL 01/09/2017 5:53 AM T [facility] TOTAL PROTEIN 8.4(H) 6.4 - 8.2 g/dL 01/09/2017 5:53 AM T [facility] ALBUMIN 2.5(L) 3.4 - 5.0 g/dL 01/09/2017 5:53 AM CDT [facility] BILIRUBIN TOTAL 0.2 0.2 - 1.0 mg/dL 01/09/2017 5:53 AM CDT [facility] ALKALINE PHOSPHATASE 99 25 - 100 U/L 01/09/2017 5:53 AM CDT [facility] AST 30 15 - 37 U/L 01/09/2017 5:53 AM CDT [facility] ALT 27 13 - 61 U/L 01/09/2017 5:53 AM CDT [facility] GFR >60 >=60 mL/min/1.7 3 sq meter 01/09/2017 5:53 AM T [facility] Comment: eGFR has not [...] 3 sq meter 01/09/2017 5:53 AM CDT [facility] ANION GAP 10 4 - 30 mmol/L 01/09/2017 5:53 AM T [facility] Blood 01/09/2017 3:15 AM CDT 01/09/2017 5:12 AM CDT us Izabela Diamond MD CHEMISTRY ORDERABLES Final Res ult [facility] CLIA# [id number] [address] [place] [address] * (ABNORMAL) CBC WITH DIFFERENTIAL (01/09/2017 3:15 [...] - 8.00 K/uL 01/09/2017 5:20 AM CDT [facility] LYMPHOCYTE ABSOLUTE 2.86 1.20 - 4.00 K/uL 01/09/2017 5:20 AM CDT [facility] MONOCYTE ABSOLUTE 0.73(H) 0.10 - 0.60 K/uL 01/09/2017 5:20 AM CDT [facility] EOSINOPHIL ABSOLUTE 0.95(H) 0.00 - 0.70 K/uL 01/09/2017 5:20 AM CDT [facility] BASOPHILS ABSOLUTE 0.11 0.00 - 0.20 K/uL 01/09/2017 5:20 AM CDT [facility] IMMATURE GRANULOCYTES ABSOLUTE 0.03 0.00 - 0.10 K/uL 01/09/2017 5:20 AM CDT [facility] Blood 01/09/2017 3:15 AM CDT 01/09/2017 5:12 AM CDT us Izabela Diamond MD HEMATOLOGY ORDERABLES Final Re sult [facility] CLIA# [id number] [address] [place] [address] * (ABNORMAL) HEMOGLOBIN A1C (01/09/2017 2:52 AM CDT) HEMOGLOBIN A1C 8.9(H) 4.0 - 6.0 % 01/09/2017 1:31 PM CDT [facility] EST. AVG GLUCOSE, A1C 209 mg/dL 01/09/2017 1:31 PM CDT [facility] Blood 01/09/2017 2:52 AM CDT 01/09/2017 6:53 AM CDT Narrative [facility] - 01/09/2017 1:31 PM CDT Test performed on [employer] instrumentation using HPLC methodology us Izabela Diamond MD CHEMISTRY ORDERABLES Final Res ult [facility] CLIA# [id number] [address] [place] [address] documented in this encounter Visit Diagnoses Not on filedocumented in this encounter Care Teams Solution Design Engineer Relationship Specialty Start Date End Date Shravan Jones DO [address] [address] PCP - General Family Practice 12/04/16 documented as of this encounter
--- OUTSIDE RECORDS SUMMARY | 2025-04-07 19:21 | XMS_ITS | Encounter Summary ---
Author Organization [facility], [facility] Address [address] [place] [address] Phone Care Team Providers Care Plumbing Inspector Name Role Phone Alexis Garcia MD Primary Care Provider [phone] Encounter Details Date Type Department Care Team (Late st Contact Info) Description 03/30/2025 [facility] [address] [place] [address] Karlene Cespedes NP [address] [place] [address] End stage renal disease; Dependence [...] encounter Miscellaneous Notes * Dialysis Note - Karlene Cespedes NP - 03/30/2025 12:00 AM CDT Patient: Donita Aguilar, 1985, 39y, F Dialysis Location: [facility] Attending E Learning Developer: Chey Navas Service Date: 03/30/2025 Service Provider: Karlene Cespedes NP I met face to face with the patient today. OVERVIEW The patient presented with ESRD on dialysis Primary cause of renal failure: Type 1 diabetes mellitus with diabetic chronic kidney disease Comments: VSS, seen on HD machine Hx ESRD secondary to DM I. She did start dialysis about during a hospitalization in [place], [place]. Hx of meth us. She did move to to live with her mother and have more support. She continues to do well and work toward testing for transplant. Followed up with cardiology last week. Has had some chest pain they are attributing to muscle tightness and have her on pain medication and muscle relaxers. LAST HOSPITALIZATION Discharge Diagnosis: I25.10 Atherosclerotic heart disease of [place] coronary artery without angina pectoris I10 Essential (primary) hypertension R07.9 Chest pain, unspecified E10.59 Type 1 diabetes mellitus with other circulatory complications Admission Date 02/22/25 Discharge Date 02/26/25 DIALYSIS PRESCRIPTION IHD 3x Week Start date: 03/27/25 Dialyzer: 160NRe Optiflux BFR: 350 DFR: Manual 800 Potassium: 2.0 Sodium: 138 EDW: 63.4 Duration: 3:30 Calcium: 2.5 Bicarb: 36 Rx updated on: 03/27/2025 TREATMENT ASSESSMENT Comments: Stable at goal range. Blood pressure controlled. No changes indicated. BP Stand Pre 03/30/2025: 118/68 03/27/2025: 140/80 03/25/2025: 118/67 BP Sit Pre 03/30/2025: 139/80 03/27/2025: 144/83 03/25/2025: 147/81 BP Stand Post 03/30/2025: 124/63 03/27/2025: 114/56 03/25/2025: 105/84 BP Sit Post 03/30/2025: 118/58 03/27/2025: 112/68 03/25/2025: 110/83 Prescribed Tx time 03/30/2025: 3:30 03/27/2025: 3:30 03/25/2025: 3:30 Tx Duration 03/30/2025: 3:38 03/27/2025: 3:32 03/25/2025: 3:37 Missed Treatments 0 - last 30 days 1 - last 60 days 02/13 - recent FLUID ASSESSMENT Comments: Stable. Minimal UF needed. Fluid status acceptable. No changes indicated. EDW (kg) 03/30/2025: 63.4 03/27/2025: 63.4 03/25/2025: 63.7 Weight Pre (kg) 03/30/2025: 65.2 03/27/2025: 64.3 03/25/2025: 64.9 Weight Post (kg) 03/30/2025: 64.4 03/27/2025: 62.6 03/25/2025: 63.4 PWV (kg) 03/30/2025: 1.0 03/27/2025: -0.8 03/25/2025: -0.3 UF Rate (mL/kg/hr) 03/30/2025: 3.4 03/27/2025: 7.7 03/25/2025: 6.5 ADEQUACY ASSESSMENT Comments: Stable trend Adequacy target met. No changes indicated. spKt/V, URR 03/25/2025: 1.8, 79.0 03/02/2025: 1.8, 80.0 01/28/2025: 1.79, 78.0 ACCESS ASSESSMENT Access Type: AVGraft Access SubType: [...] def. Getting monthly Vit B 12 injections. Steadily improving HGB, TSAT 03/25/2025: 8.7, 53.0 03/18/2025: 8.0, - 03/11/2025: 7.6, - Ferritin 03/02/2025: 698.0 11/26/2024: 784.0 11/19/2024: 797.0 Mircera, IVP (mcg) 03/23/2025: 30 03/09/2025: 30 02/09/2025: 50 Iron Sucrose (Venofer) (mg) 03/23/2025: 50 03/16/2025: 50 03/09/2025: 50 BMM ASSESSMENT Comments: Increased calcitriol. Phos still a above goal. Ed to take binders and low phos diet PTH, Intact 03/02/2025: 804.0 01/28/2025: 797.0 11/26/2024: 702.0 Calcium, Phosphorus 03/25/2025: 8.4, 5.2 03/02/2025: 7.9, 7.2 01/28/2025: 8.5, 7.6 Vitamin D (Calcitriol) Oral (mcg) 03/27/2025: 1.0 03/25/2025: 1.0 03/23/2025: 1.0 NUTRITION ASSESSMENT Comments: nPCR did drop some. Albumin is about the same. Ed to eat protein in diet. Potassium stable Potassium, Albumin 03/25/2025: 4.9, 3.4 03/02/2025: 4.5, 3.5 01/28/2025: 5.3, 3.5 eNPCR 03/25/2025: 0.52 03/02/2025: 0.77 01/28/2025: 1.05 DIAGNOSIS Chief Complaint: N18.6 End stage renal disease Patient data updated 03/30/2025 at 3:15 PM Signed By: Karlene Cespedes NP on 03/30/2025 3:15:58 PM documented in this encounter Plan of Treatment Not on file documented as of this encounter Visit Diagnoses Diagnosis End stage renal disease Dependence on renal dialysis documented in this encounter Care Teams Plumbing Inspector Relationship Specialty Start Date End Date Alexis Garcia MD [address] [place] [address] PCP - General Family Medicine 04/16/22 documented as of this encounter
--- OUTSIDE RECORDS SUMMARY | 2025-04-07 19:21 | XMS_ITS | Encounter Summary ---
Author Organization [facility] Address [address] [place] [address] Care Team Providers Care Assembler Dc Field Ring Name Role Phone Shravan Jones DO Primary Care Provider [phone] Encounter Details Date Type Department Care Team (Late st Contact Info) Description 12/12/2016 Nurse Only [facility] 4D Surgery Heart Lung [address] [place] [address] Stephenie Smith RN [address] [place] [address] Social History Tobacco Use Types Packs/Day Years Used Date Smoking Tobacco: Every Day Cigarettes Comments:pt lethargic Comments Unknown Sex and Gender Information Value Date Recorded Sex Assigned at Not on file Legal Sex Female 4:38 AM COAL HIKER Gender Identity Not on file Sexual Orientation Not on file documented as of this encounter Plan of Treatment Not on file documented as of this encounter Visit Diagnoses Not on filedocumented in this encounter Care Teams Assembler Dc Field Ring Relationship Specialty Start Date End Date Shravan Jones DO [address] [phone] PCP - General Family Practice 12/04/16 documented as of this encounter
--- OUTSIDE RECORDS SUMMARY | 2025-04-07 19:21 | XMS_ITS | Clinical Summary ---
Author Organization [facility] [employer] Address [address] [facility] Attn: [place] [address] Care Team Providers Care Emergency Management Director Name Role Phone Shravan Jones DO Primary Care Provider [phone] Allergies Active Allergy Reactions Criticality Noted Date [...] subcutaneous injection. 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 [place] [address] Abel Menon DO [address] [place] [address] Health Maintenance Due Date Last [...] 10/11/1999, 09/06/1999 Medical Devices Implanted Type Area Laundry Agent Device Identifier Shelf Expiration Date Model / Serial / Lot Max 1gm Flour [id number] - [id number] Implanted:Qty : 2 on 12/17/2016 by Deandre Alan MD Biological Left: Lung CR BARD- DAVOL INC 09/19/2019 [id number] / / [id number] Cath Dialysis Glidepath 14.5fr 24cm Std [id number] - [id number] Implanted:Qty : 1 on 03/18/2024 by Asif Mcclellan MD at [facility] Catheter Right: Chest BARD ANGEL VASC 09/21/2025 [id number] / / [id number] Clip Ligating Horizon Red 752407 - Csc - [id number] Implanted:Qty : 1 on 08/10/2024 by Chato Fitch MD at [facility] Clip Left: Arm TELEFLEX INC [id number] 05/16/2029 [id number] / / [id number] Clip Ligating Horizon Med Ti 993099 - Csc - [id number] Implanted:Qty : 1 on 08/10/2024 by Chato Fitch MD at [facility] Clip Left: Arm TELEFLEX- WECK CLOSURE SYS [id number] 03/31/2029 [id number] / / [id number] Costumed Character Entertainer Ligaclip Sml Mcs20 - [id number] Implanted:Qty : 1 on 08/10/2024 by Chato Fitch MD at [facility] Clip Left: Arm J&J- ETHICON ENDO[employer]SUR[employer]ERY [employer] [id number] 03/23/2029 MCS20 / / [id number] Closure Perclose Prostyle Sut Mediate 72996-86 - [id number] Implanted:Qty : 1 on 09/24/2023 by Janell Beauchamp MD at [facility] Closure Device N/A: Groin LOVE- VASC DEVICE [id number] 06/23/2025 30553-37 / / [id number] Closure Perclose Prostyle Sut Mediate 37943-82 - [id number] Implanted:Qty : 1 on 10/24/2023 by Janell Beauchamp MD at [facility] Closure Device Right: Groin LOVE- VASC DEVICE [id number] 07/24/2025 86374-79 / / [id number] Oil Slc 8.5ml [id number] - Sgtin:[id number] Implanted:Qty : 1 on 06/23/2024 by Janey Carrera MD at [facility] Eye Right: Eye [employer]INA LAB 12/21/2026 [id number] / GTIN:[id number] / [id number] Graft Vasc Propaten 4-3bai39qz [id number] - [id number] Implanted:Qty : 1 on 08/10/2024 by Chato Fitch MD at [facility] Graft Left: Arm [employer] [id number] 05/21/2027 [id number] / [id number] / Agent Hemostat Surgicel 2x3in 1952s - [id number] Implanted:Qty : 1 on 08/10/2024 by Chato Fitch MD at [facility] Hemostatic Left: Arm J&J- ETHICON INC [id number] 12/21/20281952S / / [id number] Hemostatic Surgiflo 8ml W/ Thrombin 2994 - [id number] Implanted:Qty : 1 on 08/10/2024 by Chato Fitch MD at [facility] Hemostatic Left: Arm J&J- ETHICON INC [id number] 10/21/2025 2994 / / [id number] Agent Hemostat Surgicel 2x3in 1952s - [id number] Implanted:Qty : 1 on 08/10/2024 by Chato Fitch MD at [facility] Hemostatic Left: Arm J&J- ETHICON INC [id number] 12/21/20281952S / / [id number] Stent Synergy Xd 3.0x48mm Evrlms Elut [id number] 0 - [id number] Implanted:Qty : 1 on 09/24/2023 by Janell Beauchamp MD at [facility] Stent N/A: Coronary BOSTON SCI GENEVIEVE [id number] 03/31/2025 [id number] 300 / / [id number] Stent Synergy Xd 2.82l90jx Evrlms Elut [id number] 0 - [id number] Implanted:Qty : 1 on 10/24/2023 by Janell Beauchamp MD at [facility] Stent Left: Coronary [employer]EV[employer]E [id number] 08/19/2024 [id number] 220 / / [id number] Control Implant Funmi Procedures Procedure Name Priority Date/Time Associated Diagnosis Comments LIPID PANEL Routine 09/21/2023 6:47 PM CDT HEMOGLOBIN A1C Routine 09/21/2023 6:46 PM CDT from Last 3 Months or Most Recently Relevant to Health Maintenance Results * (ABNORMAL) LIPID PANEL (09/21/2023 6:47 PM CDT) CHOLESTEROL 96 <200 mg/dL 09/21/2023 10:29 PM CDT [facility] TRIGLYCERIDE 164(H) <150 mg/dL 09/21/2023 10:29 PM CDT [facility] HDL 36(L) 40 - 59 mg/dL 09/21/2023 10:29 PM CDT [facility] LDL CALCULATED 27 <100 mg/dL 09/21/2023 10:29 PM CDT [facility] NON-HDL CHOLESTEROL 60 <130 mg/dL 09/21/2023 10:29 PM CDT [facility] Blood Venipuncture / Unknown 09/21/2023 6:47 PM CDT 09/21/2023 7:10 PM CDT Narrative [facility] - 09/21/2023 10:29 PM CDT TOTAL CHOLESTEROL [...] Reference Ranges for Lipid Panels (NCEP/AMA) . us Luiz Lacy MD CHEMISTRY ORDERABLES Final R esult [facility] CLIA # [id number] [address] [place] [address] * (ABNORMAL) HEMOGLOBIN A1C (09/21/2023 6:46 PM CDT) HEMOGLOBIN A1C 6.8(H) <=5.6 % 09/23/2023 9:24 AM CDT [facility] EST. AVG GLUCOSE, A1C 148 mg/dL 09/23/2023 9:24 AM CDT [facility] Blood Venipuncture / Unknown 09/21/2023 6:46 PM CDT 09/21/2023 7:08 PM CDT Narrative [facility] - 09/23/2023 9:24 AM CDT HGB A1C INTERPRETATION NORMAL: <5.7% PRE-DIABETES: 5.7 - 6.4% DIABETES: 6.5% OR GREATER Luiz Lacy MD CHEMISTRY ORDERABLES Final R esult [facility] CLIA # [id number] [address] [address] from Last 3 Months or Most Recently Relevant to Health Maintenance Insurance MEDICAID [place] PART [place] B Advance Directives For more information, please contact: [phone] * Full Code (Latest Code Status on File) Date Activated Date Inactivated Comments 10/24/2023 2:34 PM 10/25/2023 11:47 AM * Full Code Date Activated Date Inactivated Comments 10/24/2023 9:13 AM 10/24/2023 2:34 PM * Full Code Date Activated Date Inactivated Comments 09/24/2023 3:14 PM 09/25/2023 9:51 PM * Full Code Date Activated Date Inactivated Comments 09/21/2023 5:50 PM 09/24/2023 3:14 PM Care Teams Emergency Management Director Relationship Specialty Start Date End Date Shravan Jones DO [address] [address] PCP - General Family Practice 12/04/16
--- OUTSIDE RECORDS SUMMARY | 2025-04-07 19:21 | XMS_ITS | Clinical Summary ---
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 Gender Identity Not on file Sexual Orientation [...] 10/11/1999, 09/06/1999 Medical Devices Implanted Type Area Assurance Analyst Device Identifier Shelf Expiration Date Model / Serial / Lot Max tracy Flour [id number] - [id number] Implanted:Qty: 2 on 12/17/2016 by Deandre Alan MD at [facility] Biological Left: Lung CR BARD- DAVOL INC 09/19/2019 [id number] / / [id number] Control Implant Funmi Procedures Procedure Name Priority Date/Time Associated Diagnosis Comments HEMOGLOBIN A1C Routine 01/09/2017 2:52 AM CDT from Last 3 Months or Most Recently Relevant to Health Maintenance Results * (ABNORMAL) HEMOGLOBIN A1C (01/09/2017 2:52 AM CDT) HEMOGLOBIN A1C 8.9(H) 4.0 - 6.0 % 01/09/2017 1:31 PM CDT [facility] EST. AVG GLUCOSE, A1C 209 mg/dL 01/09/2017 1:31 PM CDT [facility] Blood 01/09/2017 2:52 AM CDT 01/09/2017 6:53 AM CDT Narrative [facility] - 01/09/2017 1:31 PM CDT Test performed on Affinity ChinaII instrumentation using HPLC methodology us Izabela Diamond MD CHEMISTRY ORDERABLES Final Res ult [facility] CLIA# [id number] [address] [place] [address] from Last 3 Months or Most Recently Relevant to [place] [address] [facility] MED[facility] Advance Directives For more information, please contact: [phone] * Full Code (Latest Code Status on File) Date Activated Date Inactivated Comments 12/17/2016 1:05 PM 12/27/2016 11:32 PM Care Teams Aerodynamics Engineer Relationship Specialty Start Date End Date Shravan Jones DO [address] [address] PCP - General Family Practice 12/04/16
--- OUTSIDE RECORDS SUMMARY | 2025-04-07 19:22 | XMS_ITS | Encounter Summary ---
Author Organization [facility] Address [address] [place] [address] Care Team Providers Care Retirement Plan Specialist Name Role Phone Shravan Jones DO Primary Care Provider [phone] Reason for Visit * Reason Onset Date Comments Appointment Notification 11/05/2023 Encounter Details Date Type Department Care Team (Late st Contact Info) Description 11/05/2023 Telephone [facility] [address] [place] [address] Janell Beauchamp MD [address] [place] [address] Appointment Notification Social History Tobacco Use Types Packs/Day Years Used Date Smoking Tobacco: Every Day Comments:Quit smoking: pt le thargic Social Connections Answer Date Recorded In a typical week, how many times do you talk on the telephone with family, friends, or neighbors? 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 For 11/25 as she has other appts in town that day. Please call pt to reschedule. [facility] Horizontal Resaw Operator: Patrica Barney documented in this encounter Plan of Treatment Upcoming Encounters Date Type Department Care Team (Late st Contact Info) Description 05/19/2025 9:30 AM PHOTOGRAPH ENLARGER [facility] [address] [address] Abel Menon DO [address] [phone] documented as of this encounter Visit Diagnoses Not on filedocumented in this encounter Additional Health Concerns Infection Onset Date Last Indicated Resolved Time R/O C. diff 07/06/2024 07/06/2024 07/06/2024 8:35 AM PHOTOGRAPH ENLARGER documented as of this encounter Care Teams Retirement Plan Specialist Relationship Specialty Start Date End Date Shravan Jones DO [address] [place] [address] PCP - General Family Practice 12/04/16 documented as of this encounter
--- OUTSIDE RECORDS SUMMARY | 2025-04-07 19:22 | XMS_ITS | Encounter Summary ---
Author Organization [facility] Address [address] [place] [address] Care Team Providers Care Business Services Tech Name Role Phone Shravan Jones DO Primary Care Provider [phone] Encounter Details Date Type Department Care Team (Late st Contact Info) Description 01/07/2017 Lab Requisition [facility] Laboratory Services [address] [place] [address] Izabela Diamond MD NO ADDRESS ON FILE Social History Tobacco Use Types Packs/Day Years Used Date Smoking Tobacco: Every Day Cigarettes Comments:pt lethargic Comments Unknown Sex and Gender Information Value Date Recorded Sex Assigned at Not on file 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 Gender Identity Not on file Sexual [...] - 40 mg/dL 01/07/2017 5:27 AM CDT [facility] Blood 01/07/2017 2:23 AM CDT 01/07/2017 5:01 AM CDT Izabela Diamond MD CHEMISTRY ORDERABLES Final Res ult Performing Organization Address City/[facility]/ZIP Co de Phone Number [facility] CLIA# [id number] [address] [place] [address] * (ABNORMAL) C-REACTIVE PROTEIN (01/07/2017 2:23 AM CDT) CRP 16.6(H) 0.0 - 2.9 mg/L 01/07/2017 5:27 AM CDT [facility] Blood 01/07/2017 2:23 AM CDT 01/07/2017 5:01 AM CDT Izabela Diamond MD CHEMISTRY ORDERABLES Final Res ult Performing Organization Address [facility] Co de Phone Number [facility] CLIA# [id number] [address] [place] [address] * (ABNORMAL) BASIC METABOLIC PANEL (01/07/2017 2:23 AM CDT) SODIUM 139 136 - 145 mmol/L 01/07/2017 5:27 AM CDT [facility] [employer] [facility] POTASSIUM 4.1 3.5 - 5.1 mmol/L 01/07/2017 5:27 AM CDT [facility] [employer] [facility] CHLORIDE 104 98 - 107 mmol/L 01/07/2017 5:27 AM CDT [facility] [employer] [facility] CO2 26 21 - 32 mmol/L 01/07/2017 5:27 AM CDT [facility] [employer] [facility] CALCIUM 9.1 8.4 - 10.1 mg/dL 01/07/2017 5:27 AM CDT [facility] [employer] [facility] BUN 14 7 - 17 mg/dL 01/07/2017 5:27 AM CDT [facility] CREATININE 0.82 0.55 - 1.02 mg/dL 01/07/2017 5:27 AM T [facility] GLUCOSE 274(H) 74 - 106 mg/dL 01/07/2017 5:27 AM T [facility] GFR >60 >=60 mL/min/1.7 3 sq meter 01/07/2017 5:27 AM T [facility] Comment: eGFR has not been validated [...] sq meter 01/07/2017 5:27 AM T [facility] ANION GAP 9 4 - 30 mmol/L 01/07/2017 5:27 AM [facility] Blood 01/07/2017 2:23 AM CDT 01/07/2017 5:01 AM CDT us Izabela Diamond MD CHEMISTRY ORDERABLES Final Res ult [facility] CLIA# [id number] [address] [place] [address] * (ABNORMAL) CBC WITH DIFFERENTIAL (01/07/2017 2:23 AM CDT) WBC 9.3 4.5 - 11.0 K/uL 01/07/2017 5:27 AM CDT [facility] RBC 4.19(L) 4.20 - 5.40 M/uL 01/07/2017 5:27 AM CDT [facility] HEMOGLOBIN 10.3(L) 12.0 - 16.0 g/dL 01/07/2017 5:27 AM [facility] HEMATOCRIT 33.2(L) 36.0 - 46.0 % 01/07/2017 5:27 AM [facility] MCV 79.2(L) 84.0 - 103.0 fL 01/07/2017 5:27 AM [facility] MCH 24.6(L) 27.0 - 34.0 pg 01/07/2017 5:27 AM [facility] MCHC 31.0 30.0 - 35.0 g/dL 01/07/2017 5:27 AM [facility] RDW 17.2(H) 11.0 - 14.5 % 01/07/2017 5:27 AM [facility] RDW-STDEV 49.4 37.0 - 54.0 fL 01/07/2017 5:27 AM [facility] PLATELETS 545(H) 140 - 440 K/uL 01/07/2017 5:27 AM [facility] MPV 10.2 8.9 - 12.8 fL 01/07/2017 5:27 AM [facility] NEUTROPHILS 53 42 - 75 % 01/07/2017 5:27 AM [facility] LYMPHOCYTES 26 24 - 44 % 01/07/2017 5:27 AM [facility] MONOCYTES 9 2 - 10 % 01/07/2017 5:27 AM [facility] EOSINOPHILS 11(H) 0 - 7 % 01/07/2017 5:27 AM [facility] BASOPHILS 1 0 - 1 % 01/07/2017 5:27 AM [facility] IMMATURE GRANULOCYTES 0 0 - 2 % 01/07/2017 5:27 AM [facility] NEUTROPHIL ABSOLUTE 4.88 2.00 - 8.00 K/uL 01/07/2017 5:27 AM [facility] LYMPHOCYTE ABSOLUTE 2.45 1.20 - 4.00 K/uL 01/07/2017 5:27 AM [facility] MONOCYTE ABSOLUTE 0.79(H) 0.10 - 0.60 K/uL 01/07/2017 5:27 AM CDT [facility] EOSINOPHIL ABSOLUTE 1.01(H) 0.00 - 0.70 K/uL 01/07/2017 5:27 AM CDT [facility] BASOPHILS ABSOLUTE 0.11 0.00 - 0.20 K/uL 01/07/2017 5:27 AM CDT [facility] IMMATURE GRANULOCYTES ABSOLUTE 0.04 0.00 - 0.10 K/uL 01/07/2017 5:27 AM CDT [facility] Blood 01/07/2017 2:23 AM CDT 01/07/2017 5:01 AM CDT us Izabela Diamond MD HEMATOLOGY ORDERABLES Final Re sult [facility] CLIA# [id number] [address] [place] [address] documented in this encounter Visit Diagnoses Not on filedocumented in this encounter Care Teams Business Services Tech Relationship Specialty Start Date End Date Shravan Jones DO [address] [address] PCP - General Family Practice 12/04/16 documented as of this encounter
--- OUTSIDE RECORDS SUMMARY | 2025-04-07 19:22 | XMS_ITS | Encounter Summary ---
Author Organization [facility] Address [address] [place] [address] Care Team Providers Care Dairy Husbandman Name Role Phone Shravan Jones DO Primary Care Provider [phone] Encounter Details Date Type Department Care Team (Late st Contact Info) Description 01/07/2017 Lab Requisition [facility] Laboratory Services [address] [place] [address] David Ortega MD [address] [place] [address] Social History Tobacco Use Types Packs/Day Years Used Date Smoking Tobacco: Every Day Cigarettes Comments:pt lethargic Comments Unknown Sex and Gender Information Value Date Recorded Sex Assigned at Not on file Legal Sex Female 4:38 AM CONVEYOR MONITOR Gender Identity Not on file Sexual Orientation Not on file documented as of this encounter Plan of Treatment Not on file documented as of this encounter Visit Diagnoses Not on filedocumented in this encounter Care Teams Dairy Husbandman Relationship Specialty Start Date End Date Shravan Jones DO [address] [address] PCP - General Family Practice 12/04/16 documented as of this encounter
--- OUTSIDE RECORDS SUMMARY | 2025-04-07 19:22 | XMS_ITS | Data Portability ---
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 Essentia l hyperten catherine 46074450 Active 2023 XIMENA coles [facility] 4 13:08:11 Uncontro lled type 1 diabetes mellitus 421941031 Active 2023 dx in 2008 XIMENA coles [facility] [place] 4 12:33:15 Noncompl iance with treatmen t 1549035 Active 2023 XIMENA coles [facility] 4 13:08:41 Noncompl iance with medicati on regimen 191695641 Active 2023 XIMENA coles [facility] 4 13:08:51 History of pancreat itis 13554644703 107 Active 2023 XIMENA coles [facility] 4 13:09:14 Dependen ce on renal dialysis 390357387 Active 2023 XIMENA coles [facility] 4 13:09:38 History of sepsis 59360331550 9100 Active 2023 XIMENA coles [facility] 4 13:09:47 Gastropa resis due to type 1 diabetes mellitus 103195746 Active 2023 XIMENA coles [facility] 4 13:10:04 Celiac disease 671719372 Active 2023 XIMENA KEATING sharyn [facility] 4 13:10:14 Stented artery 976123445 Active 2023 XIMENA KEATING sharyn [facility] 4 13:11:26 End-stag e renal disease 81315899 Active 2023 ELIZABETH HOUSER, [facility] [address] [place], [address], [facility] 5 11:49:17 Recurren t urinary tract infectio n 141206050 Active 2023 XIMENA coles [facility] 4 12:26:12 Chiari malforma tion 511970560 Active 2023 XIMENA coles [facility] 4 12:26:50 Steatoti c liver disease 329447315 Active 2023 XIMENA coles [facility] 4 12:27:02 Anemia 375070018 Active 2023 ELIZABETH HOUSER, [facility] [place], [address], [facility] 5 11:47:10 Female pelvic inflamma tory disease 628259130 Active 2023 XIMENA coles [facility] 4 12:28:16 Mixed anxiety and depressi ve disorder 191054462 Active 2023 XIMENA coles [facility] 4 12:28:28 Pancreat itis 51236155 Active 2023 XIMENA coles [facility] 4 12:28:40 Diabetic ketoacid osis 402781165 Active 2023 recurren t XIMENA coles [facility] 4 12:28:57 Migraine 44783181 Active 2023 ELIZABETH CORRINA, [address], [address], [facility] 5 11:49:16 Cardiome enoch 7375633 Active 2023 XIMENA coles [facility] 4 12:30:17 Edema 596947501 Active 2023 XIMENA coles [facility] 4 23:45:39 Edema due to fluid overload 825398118 Active 2023 XIMENA coles [facility] 4 23:45:54 End stage renal failure on dialysis 497795250 Active 2023 ELIZABETH HOUSER, [address], [address], [facility] 5 11:47:10 Esophagi tis 59825299 Active 2024 XIMENA coles [facility] 5 18:23:17 Notes:Some problems listed i n Documents: #[id number], #[id number], #[id number], #[id number] could not be added to this patient's chart. Please review these documents and add these problems to the patient's chart manually as needed. Problem Notes None recorded. Procedures Surgical History Date Name Laterality Status Provider Name and Address Organization Details Recorded Time 03/28/20 25 plain X-ray of chest completed XIMENA KEATING [facility] 03/31/2025 11:10:09 03/21/20 25 plain X-ray of chest completed [facility] 03/31/2025 11:07:12 03/04/20 25 plain X-ray of chest completed [facility] 03/31/2025 11:09:47 12/27/[address] of chest completed [facility] 12/27/2024 14:20:38 12/26/19 25 plain X-ray of chest completed [facility] 12/27/2024 14:13:55 11/11/19 25 plain X-ray of cervical spine completed [facility] 11/11/2024 12:44:02 10/01/19 25 angiography completed [facility] 10/01/2024 18:38:18 09/27/19 25 plain X-ray of chest completed [facility] 09/27/2024 18:18:09 09/27/19 25 echocardiography completed [facility] 10/01/2024 18:33:00 09/22/19 25 ultrasonography of right breast completed [facility] 09/21/2024 13:39:24 09/22/19 25 mammography completed [facility] 09/21/2024 13:40:36 09/11/[address] of abdomen completed [facility] 09/13/2024 14:56:32 09/10/19 25 angiography of coronary artery completed [facility] 09/13/2024 14:50:21 09/09/19 25 echocardiography completed [facility] 09/13/2024 14:54:55 09/08/19 25 plain X-ray of chest completed [facility] 09/13/2024 14:57:51 08/24/[address] of chest completed [facility] 08/24/2024 12:28:02 04/28/20 24 plain X-ray of chest completed [facility] 04/30/2024 11:08:42 03/31/20 24 plain X-ray of chest completed [facility] 04/01/2024 14:05:05 03/27/20 24 imaging guided percutaneous transluminal angioplasty of coronary artery with contrast completed [facility] 10/05/2024 10:23:19 02/28/20 24 radiographic procedure on chest and/or abdomen completed [facility] 03/04/2024 15:02:31 02/28/[address] of abdomen completed [facility] 03/04/2024 15:03:26 01/19/20 24 diagnostic radiography of abdomen completed [facility] 01/21/2024 17:26:25 01/06/20 24 plain X-ray of chest completed [facility] 01/07/2024 15:42:42 12/27/19 24 plain X-ray of chest completed [facility] 12/29/2023 23:23:06 12/27/19 24 CT of chest, abdomen and pelvis completed [facility] 12/29/2023 23:32:58 12/24/19 24 plain X-ray of chest completed [facility] 12/29/2023 23:56:29 12/20/[address] of chest completed [facility] 12/21/2023 12:33:52 12/20/19 24 plain X-ray of chest completed [facility], LJacoboL[facility]oboC[facility]obo 12/21/2023 12:34:44 12/09/19 24 plain X-ray of chest completed [facility], L[facility]oboL.CJacobo 12/12/2023 10:16:37 12/05/19 24 plain X-ray of chest completed [facility], LJacoboLJacoboCJacobo 12/06/2023 13:24:46 11/28/19 24 cardiac catheterization completed [facility] 12/06/2023 13:11:07 11/28/19 24 imaging guided percutaneous transluminal angioplasty of coronary artery with contrast completed [facility] 10/05/2024 10:22:55 11/27/19 24 plain X-ray of chest completed [facility] 11/28/2023 10:19:35 10/24/19 24 imaging guided percutaneous transluminal angioplasty of coronary artery with contrast completed [facility] 10/05/2024 10:22:32 10/16/19 24 imaging guided percutaneous transluminal angioplasty of coronary artery with contrast completed [facility] 10/05/2024 10:22:12 10/07/19 24 plain X-ray of chest completed [facility], L[facility].C[facility]obo 10/08/2023 17:52:40 09/20/19 24 echocardiography completed [facility], L[facility].C. 09/26/2023 12:48:56 lobectomy of lung completed XIMENA RISHABH [facility], [place] 10/10/2023 12:32:47 amputation completed XIMENA RISHABH [facility], LJolene 08/24/2024 12:24:04 cholecystectomy completed XIMENA [facility], LJolene 09/13/2024 14:49:22 Imaging Results None recorded. Procedure Notes None recorded. Medical Equipment None Reported. Allergies Allergen ID Allergen Name Allergen Category Reaction Reaction Severity Criticality Documentation Date Start Date Code Code System Note Provider Name and Address Organization Details Recorded Time 84876 acetamino phen medicatio n abdominal pain moderate low 01/19/20232021 161 RxNorm GI upset /into leran ce Anh Massey [facility], [place] 07:57:42 [address]498 acetamino phen medicatio n Not available Not available Not available 02/21/20242024 161 RxNorm ELIZABETH HOUSER, [address], [address], [facility] [place] 11:47:02 Medications Name Sig Start Date Stop Date Status Note LastModified by Organization Details LastModified Time losartan 50 mg tablet TAKE 2 TABLETS BY MOUTH ONCE DAILY FOR BLOOD PRESSURE 01/06 completed Not Available Not Available Not Available cyclobenz aprine 10 mg tablet Take 1 tablet 3 times a day by oral route as needed for 10 days. 2024 active Not Available Not Available Not Avai lable amoxicill in 500 mg capsule TAKE 1 [...] t Available tizanidin e 4 mg tablet 4 mg by oral route. 2024 active Not Available Not Available Not Avai lable lisinopri l 20 mg tablet TAKE 1 TABLET BY MOUTH AT BEDTIME ONCE DAILY 05/01 completed Not Available Not Available Not Available isosorbid e mononitra te ER 30 mg tablet,ex tended release 24 hr Take 1 tablet every day by oral route for 90 days. 2024 active Not Available Not Available Not Avai lable dexametha sone 6 mg tablet TAKE 1 [...] Not Available hydralazi ne 25 mg tablet 12.5 mg by oral route. 2024 active Not Available Not Available Not Avai labkaylan metronida zole 500 mg tablet TAKE 1 [...] Not Available Not Available No t Available aspirin 81 mg tablet,de layed release 81 mg by oral route. 2023 active Not Available Not Available Not Avai lable vancomyci n 125 mg capsule TAKE ONE CAPSULE BY MOUTH FOUR TIMES DAILY for EIGHT DAYS 05/01 completed Not Available Not Available Not Available carvedilo l 3.125 mg tablet TAKE 1 TABLET BY MOUTH TWICE DAILY active Not Available Not Available No t Available oxycodone 15 mg tablet TAKE 1 TABLET [...] nitroglyc jessica 0.4 mg sublingua l tablet 2024 active Not Available Not Available Not Avai lable gabapenti n 300 mg capsule TAKE 1 CAPSULE BY MOUTH THREE TIMES DAILY 03/03 completed They wanted her to decrease to 100mg TID followin [facility], 02/27 and 02/28 Not Available Not [...] completed Not Available Not Available Not Available mupirocin 2 % topical ointment APPLY A SMALL AMOUNT TO THE AFFECTED AREA BY TOPICAL ROUTE 3 TIMES PER DAY 2024 active Not Available Not Available Not Avai lable furosemid e 20 mg tablet TAKE 1 TABLET BY MOUTH ONCE DAILY 10/09 completed Not Available Not Available Not Available gabapenti n 100 mg capsule Take 1 capsule 3 times a day by oral route for 90 days. 2024 active Not Available Not Available Not Avai lable metoprolo l succinate ER 25 mg tablet,ex [...] MOUTH EVERY 8 HOURS NEEDED FOR PAIN 03/31 completed Not Available Not Available Not Available escitalop jasmin 10 mg tablet Take 1 tablet every day by oral route for 90 days. 10/05 completed Not Available Not Available Not Available escitalop jasmin 20 mg tablet TAKE 1 TABLET BY MOUTH ONCE DAILY FOR ANXIETY active Not Available Not Available No t Available insulin aspart (U-100) 100 unit/mL (3 mL) subcutane ous pen 2024 active Not Available Not Available Not Avai lable metoprolo l tartrate 25 mg tablet TAKE [...] times per day 10/09 completed VO CH/jl; 52737; Recorded 05/14/20 19 10:02AM by Leydi Jessica RN (Authori filid through Shravan Jones DO), Office Visit; Refill [...] Organization Details Last Updated DateTime 152.4 cm 26.6 kg/m2 92721.5 6 g 62 /min 97 % 97 % 98.1 [degF] 150/80 mm[Hg] [facility] 10:09:34 Date Recorded Body height Body mass index (BMI) Body weight Oxygen saturation Oxygen saturation in Arterial blood by Pulse oximetry Heart rate Respiratory rate Systolic And Diastolic Provider Name and Address Organization Details Last Updated DateTime 5 152.4 cm 25.8 kg/m2 82255.1 9 g 95 % 95 % 70 /min 18 /min 150/80 mm[Hg] XIMENA [facility] 5 10:11:17 Date Recorded Body height Body mass index (BMI) Body weight Oxygen saturation Oxygen saturation in Arterial blood by Pulse oximetry Heart rate Respiratory rate Systolic And Diastolic Provider Name and Address Organization Details Last Updated DateTime 5 152.4 cm 26.6 kg/m2 92636.5 6 g 95 % 95 % 76 /min 20 /min 138/82 mm[Hg] XIMENA [facility] 5 12:04:30 Date Recorded Body height Body mass index (BMI) Body weight Oxygen saturation Oxygen saturation in Arterial blood by Pulse oximetry Heart rate Respiratory rate Body temperature Systolic And Diastolic Provider Name and Address Organization Details Last Updated DateTime 5 152.4 cm 26.8 kg/m2 04657.1 5 g 97 % 97 % 72 /min 18 /min 98 [degF] 120/70 mm[Hg] BRANDON RIVERA [facility] 5 12:37:22 Date Recorded Body height Body mass index (BMI) Body weight Oxygen saturation Oxygen saturation in Arterial blood by Pulse oximetry Heart rate Respiratory rate Systolic And Diastolic Provider Name and Address Organization Details Last Updated DateTime 5 152.4 cm 27.7 kg/m2 45522.1 2 g 98 % 98 % 78 /min 18 /min 158/82 mm[Hg] XIMENA [facility] 5 11:21:53 Social History Question Answer Notes LastModified by Organizat ion Details LastModified Time Tobacco Smoking Status Former Smoker Quit 07/2023 XIMENA coles [facility] 12/24/2023 12:30:16 What Type Of Diet Are You Following? REGULAR [email or web address] Information not available 12/24/2023 Which Illicit Or Recreational Drugs Have You Used? Smokes Meth [email or web address] Information not available 10/10/2023 When Did You Quit Smoking? 1-5yearssin celastciwily ette Information not available 12/24/2023 What Was The Date Of Your Most Recent Tobacco Screening? 12/24/2023 Information not available 12/24/2023 What Is Your Current Pack Years? 20-29packye ars Information not available 12/24/2023 What Is Your Relationship Status? Single [email or web address] Information not available 12/24/2023 At What Age [...] or recreational drugs? Yes Quit Meth 07/2023 [email or web address] Information not available 12/24/2023 Do you or have you ever used any other forms of tobacco or nicotine? No Information not available 12/24/2023 What is your level of alcohol consumption? None [email or web address] Information not available 10/10/2023 Are you currently employed? No disabled [email or web address] Information not available 10/10/2023 Are you able to walk independently without assistance or assistive devices? YESASSIST [email or web address] Information not available 10/10/2023 Are you able to care for yourself independently? No Mother is her caregiver. [email or web address] Information not available 10/10/2023 Do you or have you ever used any nicotine-free cigarettes, vape, or chewing tobacco? No Information not available 12/24/2023 Mental Status None recorded. Family History Relationship Description Onset Age of this Age Resolved Age Notes LastModified by Organization Details LastModified Time Mother Myocardial infarction In her 50's [email or web address] Not available 12/29/2023 23:44:26 Mother Rheumatoid arthritis [email or web address] Not available 12/28 23:44:44 Brother Acute lymphoid leukemia Not available 10/18 18:24:23 Medical History Condition Response Anxiety Disorder Y Diabetes Y Coronary Artery Disease Y Heart Problems Y Hospitalizations Y COPD Y Lung Disease Y Depression Y High Cholesterol Y Heart Disease Y Headaches Y Hypertension Y Kidney Disease Y Gynecological HistoryNo gynecological history recorded. Obstetrics History GPAL:G 0 P 0 0 0 0 Immunizations Vaccine Type Date Status Note Provider Nam e and Address Organization Details Recorded Time pneumococcal polysaccharide PPV23 8 completed SUZANNE HEATON [address] [place] [address], [address], [facility], [place] 12/24/2023 12:51:09 Past Encounters Encounter ID Performer Location Encounter Start Date Encounter Closed Date Diagnosis/Indication Diagnosis SNOMED-CT Code Diagnosis ICD10 Code Diagnosis IMO Codes Diagnosis Note [id number] SUZANNE HEATON [facility] ([facility]) [address] [place] [address] 10/10/2023 11:29:12 10/10/2023 13:24:32 Uncontrolled type 1 diabetes mellitus 025026804 E10.[address] Ortega. End stage renal failure on dialysis 658179111 Z99.2 MWF dialysis. Multi vess el coronary artery disease 047303442 I25.10 Following with cardiology in [facility] Essential hypertension 53833869 I10 Coronary arteriosclerosis 59436784 I25.10 [id number] ([facility]) [address] [place] [address] 12/02/2023 12:01:39 12/02/2023 13:56:02 Dental abscess 298009638 K04.7 Will start patient on lower dose amoxicilli n due to her hemodialys is status. Counseled patient that it is imperative that she see and be evaluated by a dentist in the next 2 to 4 weeks. [id number] SUZANNE HEATON [facility] ([facility]) [address] [place] [address] 12/24/2023 11:37:48 12/24/2023 14:35:44 Mixed anxiety and depressive disorder 806024202 F41.8 Essential hypertension 90658957 I10 Starting Nifedipine today. Type 1 mainor betes mellitus 83930046 E10.[address] Ortega. Pain in bi lateral legs 4935565450 6672455 M79.604 M79.605 Patient reports she took some of her mom's in the past and it was helpful. End stage renal failure on dialysis 118189795 Z99.2 MWF dialysis. [id number] ELIZABETH HOUSER [facility] ([facility]) [address] [place] [address] 01/07/2024 15:11:38 01/07/2024 17:49:26 Edema 131326366 R60.9 Non-pittin g lower extremity. Chest pain 51248716 R07. 9 Recurrent. Following with cardiology . Blood pres sure outside reference range 01471001 Z01.31 Will half dose of nifedipine until she is seen with cardiology . [id number] SUZANNE HEATON [facility] ([facility]) [address] [place] [phone] 02/21/2024 11:42:22 02/21/2024 12:51:01 End-stage renal disease 23217962 N18.6 Continue dialysis. Essential hypertension 43934766 I10 Blood pressure good today. Continue current meds. Uncontroll ed type 1 diabetes mellitus 067570955 E10.65 Continue to follow with Dr. Ortega. Mixed anxi ety and depressive disorder 337552292 F41.8 [id number] SUZANNE HEATON [facility] ([facility]) [address] [place] [phone] 04/01/2024 13:47:35 04/01/2024 15:21:12 Essential hypertension 85327252 I10 Monitor at home. Follow-up with cardiology . Uncontroll ed type 1 diabetes mellitus 983195062 E10.65 Continue to follow with Dr. [facility]ga. [facility] 503253773 Z30.9 Has a Nexplanon in her left arm, has not been changed for 12 years per patient Chronic low back pain 27 7976739 M54.50 Would like to see about prescripti on for Tramadol. 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 Congestive heart failure 09071435 I50.9 Follows with Cardiology . Chronic ob structive pulmonary disease 49508007 J44.9 Uses Breo. Secondary hyperaldosteronism 64851977 E26.1 Currently on dialysis. Angina pectoris 09935973 0 I20.9 Follows with cardiology , has nitrostat, recent stent. Amputated toe 141165589 Z89.429 Follows with podiatry. Chronic re current major depressive disorder 6980053 F33.1 Continue Lexapro. [id number] SUZANNE HEATON [facility] ([facility]) [address] [place] [address] 05/01/2024 11:41:02 05/01/2024 13:20:39 Chronic chest pain 5496650703 86333 R07.9 Encouraged her mother to contact cardiology for follow-up. Essential hypertension 12115341 I10 Monitor at home. Restart Coreg. Abnormal vision 7483165 H54.7 [id number] SUZANNE HEATON [facility] ([facility]) [address] [place] [address] 07/01/2024 13:56:52 07/01/2024 15:11:16 Essential hypertension 29498490 I10 Blood pressure this am was 125/80. Type 1 mainor betes mellitus 47782946 E10.[address] Ortega. Mixed anxi ety and depressive disorder 750726456 F41.8 Swelling of lower leg 44 0578839 R22.40 Hypoxemic respiratory failure 4177650885 9621267 J96.91 Uses oxygen at home as needed. 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 Depressive disorder 3548 9007 F33.1 Continue escitalopr am. 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 Congestive heart failure 91953972 I50.9 I50.30 Follows with Cardiology . Chronic ki dney disease stage 5 809643435 N18.5 Z99.2 Currently on dialysis. Amputated toe 967085137 Z89.429 Follows with podiatry. Low back pain 117787239 M54.50 Gabapentin . Hypertensi ve heart and renal disease with (congestive) heart failure 078136254 I13.2 Follows with Cardiology . Chronic ob structive pulmonary disease 81606114 J44.9 Uses Breo. Chronic ki dney disease due to type 2 diabetes mellitus 2381001627 08 N18.6 Currently on dialysis. [id number] SUZANNE HEATON [facility] ([facility]) [address] [place] [address] 09/16/2024 09:15:48 09/16/2024 11:21:40 Coronary arteriosclerosis 25280349 I25.10 Recent stent placement. Anemia 844815171 D64.9 Acute supp urative otitis media without spontaneous rupture of ear drum 70431842 H66.001 Pain in bi lateral legs 9051060244 6774462 M79.604 M79.605 She has been taking 100mg three times daily but feels like it needs to be increased. [id number] SUZANNE HEATON [facility] ([facility]) [address] [place] [address] 10/05/2024 10:02:53 10/05/2024 11:11:59 Coronary atherosclerosis 865464886 I25.10 She has 8 stents now. Mixed anxi ety and depressive disorder 622351139 F41.8 She has been having vivid dreams lately revolving around her brother who recently as well as her daughter who . Hospital i npatient stay within past 30 days 0118145465 106 Z76.89 [id number] SUZANNE HEATON [facility] ([facility]) [address] [place] [address] 11/27/2024 09:57:25 11/27/2024 10:57:38 Essential hypertension 77274115 I10 Blood pressure this am was 179/112 at home, in office is 150/80. Afternoon readings have been good. Type 1 mainor betes mellitus 30262312 E10.[address] Ortega. Pain in bi lateral legs 6697443210 6394012 M79.604 M79.605 Anxiety 24060822 F41.8 6585058 Unable to lay still for MRI. Will send in clonazepam to take prior to procedure. [id number] SUZANNE HEATON [facility] ([facility]) [address] [place] [address] 01/06/2025 11:45:44 01/06/2025 13:58:55 Chronic chest pain 2002794963 19412 R07.9 G89.29 650029 Chronic ki dney disease stage 5 538302303 N18.5 Z99.2 Currently on dialysis. Coronary arteriosclerosis 75714007 I25.10 Recent stent placement. Follow-up with cardiology next week. Will discuss chest pain with them as well. [id number] SUZANNE HEATON [facility] ([facility]) [address] [place] [phone] 03/03/2025 12:06:42 03/03/2025 14:00:46 Neuropathy due to diabetes mellitus 133208843 E11.40 Decrease gabapentin to 100mg three times daily. Chronic renal failure 90 420956 N18.5 42335775 Dialysis. Hyperkalemia 46274187 E8 7.5 9805 Labs checked yesterday at Dialysis. Atypical chest pain 1025 75548 R07.89 [id number] Recurrent. Following with cardiology . Recently started Isosorbide . History of abnormal cervical Papanicolaou smear 041366727 Z87.42 0671071 [id number] SUZANNE HEATON [facility] ([facility]) [address] [place] [address] 03/31/2025 10:56:17 03/31/2025 12:04:26 Chronic chest pain 5557854268 19465 R07.9 G89.29 171264 Spasm 52022454 M62.838 Pain in bi lateral legs 2389627823 0239590 M79.604 M79.605 Site-speci fic infective disorders of skin 937358514 L08.9 40245 right index finger Chronic pain syndrome 37 2279659 G89.4 14451 Gabapentin . Health Concerns Section Related Observation LastModified by Organization Detai ls LastModified Time None Recorded Concern Status LastModified by Organization Details LastModified Time None Recorded Advance Directives Directive None Recorded Payers Insurance Date Sequence Insurance Name Policy Number Policy Varela Covered Member ID Varlea Member ID Guarantor Name 03/28/2025 [place] Donita Hyman Lauren [id number] Donita Yenni Lauren 03/28/2025 [place] [facility] Donita Hyman Lauren [id number] Donita Yenni Lauren 03/28/2025 2 [place] Donita Hyman Lauren [id number] Donita Yenni Lauren 03/28/2025 1 [place] [facility] Donita Hyman Lauren [id number] Donita Yenni Lauren 12/07/2024 1 [facility] ([place]ICAID REPLAC[facility] - HMO) [facility] Donita Yenni Lauren [id number] Donita Yenni Lauren Notes Date Note Type Note Provider Name [...] reportsdoes not adhere to lifestyle changes. ELIZABETH HOUSER, [facility] [address] [place], [address], [facility], [place] 10/05/2024 10:57:13 5 text/htm l DiabetesReported by [...] reportsmyocardial infarction,end-stage renal disease, anddiabetes. ELIZABETH HOUSER, [address], [address], [facility] 11/27/2024 11:31:59 5 text/htm l Angina/Chest PainReported by PatientIFor quality, patient reportssqueezingandsoreness. For location, patient reportsmidsternal. For severity, patient reportsmoderate. SARA HEATON[address], [address], [facility] 01/06/2025 12:54:30 5 text/htm l DyspneaReported [...] gabapentin lowered back to 100mg. ELIZABETH HOUSER, [address], [address], [facility] 03/03/2025 13:06:19 5 text/htm l Angina/Chest PainReported by PatientIFor quality, patient reportsheaviness. For context, patient reportsat rest. For severity, patient reportsmoderate. For onset/timing, patient reportshas noted for yearsandintermittent. For alleviating factors, patient reportsnitroglycerinandrest. ELIZABETH HOUSER, [facility] [address] [place], [address], [facility], [place] 03/31/2025 17:08:26 OBGyn Episode No OBEpisode recorded.
--- OUTSIDE RECORDS SUMMARY | 2025-04-07 19:22 | XMS_ITS | Continuity of Care Document ---
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 Laterality Status Provider Name and Address Organization Details Recorded Time 03/28/20 25 plain X-ray of chest completed [facility] 03/31/2025 11:10:09 03/21/20 25 plain X-ray of chest completed [facility] 03/31/2025 11:07:12 03/04/20 25 plain X-ray of chest completed [facility]. 03/31/2025 11:09:47 12/27/[address] 25 [address] of chest completed [facility] 12/27/2024 14:20:38 12/26/19 25 plain X-ray of chest completed [facility] L[facility]. 12/27/2024 14:13:55 11/11/19 25 plain X-ray of cervical spine completed [facility] L[facility]. 11/11/2024 12:44:02 10/01/19 25 angiography completed [facility]. 10/01/2024 18:38:18 09/27/19 25 plain X-ray of chest completed [facility]obo 09/27/2024 18:18:09 09/27/19 25 echocardiography completed [facility] 10/01/2024 18:33:00 09/22/19 25 ultrasonography of right breast completed [facility], LJacoboLJacoboCJacobo 09/21/2024 13:39:24 09/22/19 25 mammography completed [facility], LJacoboLJacoboCJacobo 09/21/2024 13:40:36 09/11/[address] of abdomen completed [facility]. 09/13/2024 14:56:32 09/10/19 25 angiography of coronary artery completed [facility] 09/13/2024 14:50:21 09/09/19 25 echocardiography completed [facility]obo 09/13/2024 14:54:55 09/08/19 25 plain X-ray of chest completed [facility] 09/13/2024 14:57:51 08/24/[address] of chest completed [facility]CJacobo 08/24/2024 12:28:02 04/28/20 24 plain X-ray of chest completed [facility] 04/30/2024 11:08:42 03/31/20 24 plain X-ray of chest completed [facility] 04/01/2024 14:05:05 03/27/20 24 imaging guided percutaneous transluminal angioplasty of coronary artery with contrast completed [facility], LJacoboLSanju 10/05/2024 10:23:19 02/28/20 24 radiographic procedure on chest and/or abdomen completed [facility] 03/04/2024 15:02:31 02/28/[address] of abdomen completed [facility] 03/04/2024 15:03:26 01/19/20 24 diagnostic radiography of abdomen completed [facility] 01/21/2024 17:26:25 01/06/20 24 plain X-ray of chest completed [facility] 01/07/2024 15:42:42 12/27/19 24 plain X-ray of chest completed [facility] 12/29/2023 23:23:06 12/27/19 24 CT of chest, abdomen and pelvis completed [facility] 12/29/2023 23:32:58 12/24/19 24 plain X-ray of chest completed [facility] 12/29/2023 23:56:29 12/20/[address] of chest completed [facility] 12/21/2023 12:33:52 12/20/19 24 plain X-ray of chest completed [facility] 12/21/2023 12:34:44 12/09/19 24 plain X-ray of chest completed [facility] 12/12/2023 10:16:37 12/05/19 24 plain X-ray of chest completed [facility] 12/06/2023 13:24:46 11/28/19 24 cardiac catheterization completed [facility], LJacoboLJacoboCJacobo 12/06/2023 13:11:07 11/28/19 24 imaging guided percutaneous transluminal angioplasty of coronary artery with contrast completed [facility] 10/05/2024 10:22:55 11/27/19 24 plain X-ray of chest completed [facility] 11/28/2023 10:19:35 10/24/19 24 imaging guided percutaneous transluminal angioplasty of coronary artery with contrast completed [facility] 10/05/2024 10:22:32 10/16/19 24 imaging guided percutaneous transluminal angioplasty of coronary artery with contrast completed [facility] 10/05/2024 10:22:12 10/07/19 24 plain X-ray of chest completed [facility] 10/08/2023 17:52:40 09/20/19 24 echocardiography completed [facility] 09/26/2023 12:48:56 lobectomy of lung completed [facility] 10/10/2023 12:32:47 amputation completed [facility] 08/24/2024 12:24:04 cholecystectomy completed [facility] 09/13/2024 14:49:22 Imaging Results None recorded. Procedure Notes None recorded. Medical Equipment None Reported. Allergies Allergen ID Allergen Name Allergen Category Reaction Reaction Severity Criticality Documentation Date Start Date Code Code System Note Provider Name and Address Organization Details Recorded Time 29195 acetamino phen medicatio n abdominal pain moderate low 01/19/20232021 161 RxNorm GI upset /into leran graham Massey [facility]CJacobo 07:57:42 50437 acetamino phen medicatio n Not available Not available Not available 02/21/20242024 161 RxNorm ELIZABETH HOUSER, SUZANNE [address] [place], [address], [facility] 5 11:47:02 Medications Name Sig Start Date Stop [...] Not Available Not Available Not Avai lable metronida zole 500 mg tablet TAKE 1 [...] her to decrease to 100mg TID followin [facility] ization, 02/27 and 02/28 Not Available Not Available [...] times per day 10/09 completed VO CH/jl; 37459; Recorded 05/14/20 10:02AM by Leydi Jessica RN (Authori zed [...] Organization Details Last Updated DateTime 152.4 cm 27.7 kg/m2 75045.1 2 g 98 % 98 % 78 /min 18 /min 158/82 mm[Hg] XIMENA KEATING [facility] 11:21:53 Social History Question Answer Notes LastModified by Organizat ion Details LastModified Time Tobacco Smoking Status Former Smoker Quit 07/2023 XIMENA KEATING [facility] 12/24/2023 12:30:16 What Type Of Diet Are You Following? REGULAR [email or web address] Information not available 12/24/2023 Which Illicit Or Recreational Drugs Have You Used? Smokes Meth [email or web address] Information not available 10/10/2023 When Did You Quit Smoking? 1-5yearssin celastcigar ette Information not available 12/24/2023 What Was The Date Of Your Most Recent Tobacco Screening? 12/24/2023 Information not available 12/24/2023 What Is Your Current Pack Years? 20-29packye ars Information not available 12/24/2023 What Is Your Relationship Status? Single Information not available 12/24/2023 At What Age [...] is your level of alcohol consumption? None [email or web address] Information not available 10/10/2023 Are you currently employed? No disabled Information not available 10/10/2023 Are you able to walk independently without assistance or assistive devices? YESASSIST [email or web address] Information not available 10/10/2023 Are you able to care for yourself independently? No Mother is her caregiver. [email or web address] Information not available 10/10/2023 Do you or have you ever used any nicotine-free cigarettes, vape, or chewing tobacco? No Information not available 12/24/2023 Mental Status None recorded. Family History Relationship Description Onset Age of this Age Resolved Age Notes LastModified by Organization Details LastModified Time Mother Myocardial infarction In her 50's [email or web address] Not available 12/29/2023 23:44:26 Mother Rheumatoid arthritis [email or web address] Not available 12/28 23:44:44 Brother Acute lymphoid leukemia [email or web address] Not available 10/18 18:24:23 Medical History Condition [...] pneumococcal polysaccharide PPV23 8 completed ELIZABETH HOUSER, [facility] [address] [place], [address], [facility], L.L.CJacobo 12/24/2023 12:51:09 Past Encounters Encounter ID Performer Location Encounter Start Date Encounter Closed Date Diagnosis/Indication Diagnosis SNOMED-CT Code Diagnosis ICD10 Code Diagnosis IMO Codes Diagnosis Note [id number] [facility]ANNE [facility] ([facility]) [address] [place] [address] 03/03/2025 12:06:42 03/03/2025 14:00:46 Neuropathy due to diabetes mellitus 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 Chronic renal failure 90 083175 N18.5 05062746 Dialysis. Hyperkalemia 91877588 E8 7.5 9805 Labs checked yesterday at Dialysis. Atypical chest pain 1025 31585 R07.89 559376 Recurrent. Following with cardiology . Recently started Isosorbide . History of abnormal cervical Papanicolaou smear 940968051 Z87.42 [id number] SUZANNE [facility] ([facility]) [address] [place] [address] 03/31/2025 10:56:17 03/31/2025 12:04:26 Chronic chest pain 7555987798 69857 R07.9 G89.29 020797 Spasm 27606994 M62.838 Pain in bi lateral legs 2390276765 7517926 M79.604 M79.605 Site-speci fic infective disorders of skin 422441074 L08.9 12928 right index finger Chronic pain syndrome 37 6670316 G89.4 50295 Gabapentin . Health Concerns Section Related Observation LastModified by Organization Detai ls LastModified Time None Recorded Concern Status LastModified by Organization Details LastModified Time None Recorded Payers Encounter Date Sequence Insurance Name Policy Number Policy Varela Covered Member ID Varela Member ID Guarantor Name 03/31/2025 1 [place] Donita Aguilar [id number] Donita Aguilar 03/31/2025 2 [place] Donita Aguilar [id number] Donita Aguilar Notes Date Note Type Note Provider Name and Address Organization Details Recorded Time text/html Angina/Chest PainReported by PatientHPIFor quality, patient reportsheaviness. For context, patient reportsat rest. For severity, patient reportsmoderate. For onset/timing, patient reportshas noted for yearsandintermittent. For alleviating factors, patient reportsnitroglycerinizabellare st. ELIZABETH HOUSER, [facility] [address] [place], [address], [facility] 03/31/2025 17:08:26 OBGyn Episode No OBEpisode recorded.
--- OUTSIDE RECORDS SUMMARY | 2025-04-07 19:22 | XMS_ITS | Encounter Summary ---
Author Organization [facility] Address [address] [place] [address] Care Team Providers Care Upholsterer Apprentice Name Role Phone Shravan Jones DO Primary Care Provider Encounter Details Date Type Department Care Team (Late st Contact Info) Description 12/31/2016 Lab Requisition [facility] Laboratory Services [address] [place] [address] David Ortega MD [address] [place] [address] Social History Tobacco Use Types Packs/Day Years Used Date Smoking Tobacco: Every Day Cigarettes Comments:pt lethargic Comments Unknown Sex and Gender Information Value Date Recorded Sex Assigned at Not on file 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 Blood 12/31/2016 2:26 AM CDT 12/31/2016 5:17 AM CDT [facility] - 12/31/2016 5:52 AM CDT Due to Linotype Machinist update, MG+ reference range has changed from 1.8 - 2.4 mg/dL to the new reference range of 1.6 - 2.6 mg/dL. This will have limited patient impact. us David Ortega MD CHEMISTRY ORDERABLES Final Res ult [facility] CLIA# [id number] [address] [place] [address] * (ABNORMAL) COMPREHENSIVE METABOLIC PANEL (12/31/2016 2:26 AM CDT) SODIUM 138 136 - 145 mmol/L 12/31/2016 5:[address] [facility] POTASSIUM 4.7 3.5 - 5.1 mmol/L 12/31/2016 5:52 AM [facility] CHLORIDE 102 98 - 107 mmol/L 12/31/2016 5:[address] [facility] CO2 27 21 - 32 mmol/L 12/31/2016 5:[address] [facility] CALCIUM 9.1 8.4 - 10.1 mg/dL 12/31/2016 5:[address] [facility] BUN 17 7 - 17 mg/dL 12/31/2016 5:[address] [facility] CREATININE 0.87 0.55 - 1.02 mg/dL 12/31/2016 5:[address] [facility] GLUCOSE 214(H) 74 - 106 mg/dL 12/31/2016 5:[address] [facility] TOTAL PROTEIN 8.2 6.4 - 8.2 g/dL 12/31/2016 5:[address] [facility] ALBUMIN 1.9(L) 3.4 - 5.0 g/dL 12/31/2016 5:[address] [facility] BILIRUBIN TOTAL 0.2 0.2 - 1.0 mg/dL 12/31/2016 5:[address] [facility] ALKALINE PHOSPHATASE 95 25 - 100 U/L 12/31/2016 5:[address] [facility] AST 9(L) 15 - 37 U/L 12/31/2016 5:[address] [facility] ALT 14 13 - 61 U/L 12/31/2016 5:[address] [facility] GFR >60 >=60 mL/min/1.7 3 sq meter 12/31/2016 5:[address] [facility] Comment: eGFR [...] 3 sq meter 12/31/2016 5:[address] [facility] ANION GAP 9 4 - 30 mmol/L 12/31/2016 5:[address] [facility] Blood 12/31/2016 2:26 AM CDT 12/31/2016 5:17 AM CDT us David Ortega MD CHEMISTRY ORDERABLES Final Res ult [facility] CLIA# [id number] [place] [address] * (ABNORMAL) CBC WITH DIFFERENTIAL (12/31/2016 2:26 AM CDT) WBC 13.7(H) 4.5 - 11.0 K/uL 12/31/2016 6:32 AM [facility] RBC 3.66(L) 4.20 - 5.40 M/uL 12/31/2016 6:32 AM [facility] HEMOGLOBIN 9.3(L) 12.0 - 16.0 g/dL 12/31/2016 6:32 AM [facility] [employer] [facility] HEMATOCRIT 29.6(L) 36.0 - 46.0 % 12/31/2016 6:32 AM [facility] [employer] [facility] MCV 80.9(L) 84.0 - 103.0 fL 12/31/2016 6:32 AM [facility] [employer] [facility] MCH 25.4(L) 27.0 - 34.0 pg 12/31/2016 6:32 AM [facility] MCHC 31.4 30.0 - 35.0 g/dL 12/31/2016 6:32 AM [facility] [employer] [facility] RDW 17.4(H) 11.0 - 14.5 % 12/31/2016 6:32 AM [facility] [employer] [facility] RDW-STDEV 52.1 37.0 - 54.0 fL 12/31/2016 6:32 AM [facility] [employer] [facility] PLATELETS 767(H) 140 - 440 K/uL 12/31/2016 6:32 AM [facility] [employer] [facility] MPV 9.0 8.9 - 12.8 fL 12/31/2016 6:32 AM [facility] [employer] [facility] NEUTROPHILS 68 42 - 75 % 12/31/2016 6:32 AM [facility] [employer] [facility] LYMPHOCYTES 17(L) 24 - 44 % 12/31/2016 6:32 AM [facility] [employer] [facility] MONOCYTES 8 2 - 10 % 12/31/2016 6:32 AM [facility] [employer] [facility] EOSINOPHILS 6 0 - 7 % 12/31/2016 6:32 AM [facility] [employer] [facility] BASOPHILS 0 0 - 1 % 12/31/2016 6:32 AM [facility] [employer] [facility] IMMATURE GRANULOCYTES 1 0 - 2 % 12/31/2016 6:[address] [facility] NEUTROPHIL ABSOLUTE 9.26(H) 2.00 - 8.00 K/uL 12/31/2016 6:[address] [facility] LYMPHOCYTE ABSOLUTE 2.28 1.20 - 4.00 K/uL 12/31/2016 6:[address] [facility] MONOCYTE ABSOLUTE 1.07(H) 0.10 - 0.60 K/uL 12/31/2016 6:[address] [facility] EOSINOPHIL ABSOLUTE 0.82(H) 0.00 - 0.70 K/uL 12/31/2016 6:[address] [facility] BASOPHILS ABSOLUTE 0.06 0.00 - 0.20 K/uL 12/31/2016 6:[address] [facility] IMMATURE GRANULOCYTES ABSOLUTE 0.17(H) 0.00 - 0.10 K/uL 12/31/2016 6:[address] [facility] Blood 12/31/2016 2:26 AM CDT 12/31/2016 5:[address] [facility] - 12/31/2016 6:32 AM CDT Smear reviewed us David Ortega MD HEMATOLOGY ORDERABLES Final Re sult [facility] CLIA# [id number] [address] [place] [address] documented in this encounter Visit Diagnoses Not on filedocumented in this encounter Care Teams Upholsterer Apprentice Relationship Specialty Start Date End Date Shravan Jones DO [address] [address] PCP - General Family Practice 12/04/16 documented as of this encounter
--- OUTSIDE RECORDS SUMMARY | 2025-04-07 19:22 | XMS_ITS | Encounter Summary ---
Author Organization [facility] Address [address] [place] [address] Care Team Providers Care Tire Builder Operator Name Role Phone Shravan Jones DO Primary Care Provider Encounter Details Date Type Department Care Team (Late st Contact Info) Description 01/07/2017 Lab Requisition [facility] Laboratory [facility] [address] [place] [address] David Ortega MD [address] [place] [address] Social History Tobacco Use Types Packs/Day Years Used Date Smoking Tobacco: Every Day Cigarettes Comments:pt lethargic Comments Unknown Sex and Gender Information Value Date Recorded Sex Assigned at Not on file 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 Gender Identity Not on file Sexual [...] Detected Not Detected 01/07/2017 8:08 PM CDT [facility] [employer] [facility] Stool STOOL SPECIMEN / Unknown 01/07/2017 1:54 PM CDT 01/07/2017 6:53 PM CDT Narrative [facility] [employer] [facility] - 01/07/2017 8:08 PM CDT This [...] MICROBIOLOGY - GENERAL ORDERAB LES Final Result [facility] [employer] [facility] CLIA# [id number] [address] [place] [address] documented in this encounter Visit Diagnoses Not on filedocumented in this encounter Care Teams Tire Builder Operator Relationship Specialty Start Date End Date Shravan Jones DO [address] [address] PCP - General Family Practice 12/04/16 documented as of this encounter
--- OUTSIDE RECORDS SUMMARY | 2025-04-07 19:22 | XMS_ITS | Encounter Summary ---
Author Organization [facility] Address [address] [place] [address] Care Team Providers Care Human Resources Clerk Name Role Phone Shravan Jones DO Primary Care Provider [phone] Encounter Details Date Type Department Care Team (Late st Contact Info) Description 01/02/2017 Lab Requisition [facility] Laboratory Services [address] [place] [address] [place] [address] Izabela Diamond MD NO ADDRESS ON FILE Social History Tobacco Use Types Packs/Day Years Used Date Smoking Tobacco: Every Day Cigarettes Comments:pt lethargic Comments Unknown Sex and Gender Information Value Date Recorded Sex Assigned at Not on file Legal Sex Female 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 Gender Identity Not on file Sexual [...] - 145 mmol/L 01/02/2017 6:07 AM CDT [facility] [employer] [facility] POTASSIUM 4.3 3.5 - 5.1 mmol/L 01/02/2017 6:07 AM CDT [facility] CHLORIDE 101 98 - 107 mmol/L 01/02/2017 6:07 AM T [facility] CO2 27 21 - 32 mmol/L 01/02/2017 6:07 AM T [facility] CALCIUM 9.7 8.4 - 10.1 mg/dL 01/02/2017 6:07 AM T [facility] BUN 16 7 - 17 mg/dL 01/02/2017 6:07 AM [facility] CREATININE 0.87 0.55 - 1.02 mg/dL 01/02/2017 6:07 AM T [facility] GLUCOSE 122(H) 74 - 106 mg/dL 01/02/2017 6:07 AM [facility] GFR >60 >=60 mL/min/1.7 3 sq meter 01/02/2017 6:07 AM T [facility] Comment: eGFR has not been [...] 3 sq meter 01/02/2017 6:07 AM CDT [facility] ANION GAP 10 4 - 30 mmol/L 01/02/2017 6:07 AM T [facility] Blood 01/02/2017 3:00 AM CDT 01/02/2017 5:35 AM CDT us Izabela Diamond MD CHEMISTRY ORDERABLES Final Res ult [facility] CLIA# [id number] [address] [place] [address] * (ABNORMAL) CBC WITH DIFFERENTIAL (01/02/2017 3:00 AM CDT) [facility] WBC 10.4 4.5 - 11.0 K/uL 01/02/2017 5:44 AM [facility] RBC 4.30 4.20 - 5.40 M/uL 01/02/2017 5:44 AM [facility] HEMOGLOBIN 10.4(L) 12.0 - 16.0 g/dL 01/02/2017 5:44 AM [facility] HEMATOCRIT 34.5(L) 36.0 - 46.0 % 01/02/2017 5:44 AM [facility] MCV 80.2(L) 84.0 - 103.0 fL 01/02/2017 5:44 AM [facility] MCH 24.2(L) 27.0 - 34.0 pg 01/02/2017 5:44 AM [facility] MCHC 30.1 30.0 - 35.0 g/dL 01/02/2017 5:44 AM [facility] RDW 17.4(H) 11.0 - 14.5 % 01/02/2017 5:44 AM [facility] RDW-STDEV 51.1 37.0 - 54.0 fL 01/02/2017 5:44 AM [facility] PLATELETS 764(H) 140 - 440 K/uL 01/02/2017 5:44 AM [facility] MPV 9.2 8.9 - 12.8 fL 01/02/2017 5:44 AM [facility] NEUTROPHILS 56 42 - 75 % 01/02/2017 5:44 AM [facility] LYMPHOCYTES 27 24 - 44 % 01/02/2017 5:44 AM [facility] MONOCYTES 8 2 - 10 % 01/02/2017 5:44 AM [facility] EOSINOPHILS 7 0 - 7 % 01/02/2017 5:44 AM [facility] BASOPHILS 1 0 - 1 % 01/02/2017 5:44 AM [facility] IMMATURE GRANULOCYTES 1 0 - 2 % 01/02/2017 5:44 AM CDT [facility] NEUTROPHIL ABSOLUTE 5.79 2.00 - 8.00 K/uL 01/02/2017 5:44 AM CDT [facility] LYMPHOCYTE ABSOLUTE 2.78 1.20 - 4.00 K/uL 01/02/2017 5:44 AM CDT [facility] MONOCYTE ABSOLUTE 0.85(H) 0.10 - 0.60 K/uL 01/02/2017 5:44 AM CDT [facility] EOSINOPHIL ABSOLUTE 0.76(H) 0.00 - 0.70 K/uL 01/02/2017 5:44 AM CDT [facility] BASOPHILS ABSOLUTE 0.10 0.00 - 0.20 K/uL 01/02/2017 5:44 AM CDT [facility] IMMATURE GRANULOCYTES ABSOLUTE 0.09 0.00 - 0.10 K/uL 01/02/2017 5:44 AM CDT [facility] Blood 01/02/2017 3:00 AM CDT 01/02/2017 5:35 AM CDT us Izabela Diamond MD HEMATOLOGY ORDERABLES Final Re sult [facility] CLIA# [id number] [facility] [place] [address] documented in this encounter Visit Diagnoses Not on filedocumented in this encounter Care Teams Human Resources Clerk Relationship Specialty Start Date End Date Shravan Jones DO [address] [address] PCP - General Family Practice 12/04/16 documented as of this encounter
--- OUTSIDE RECORDS SUMMARY | 2025-04-07 19:22 | XMS_ITS | Encounter Summary ---
Author Organization [facility] Address [address] [place] [address] Care Team Providers Care Manager Center Name Role Phone Shravan Jones DO Primary Care Provider Encounter Details Date Type Department Care Team (Late st Contact Info) Description 12/28/2016 Lab Requisition [facility] Laboratory Services [address] [place] [address] David Ortega MD [address] [place] [address] Social History Tobacco Use Types Packs/Day Years Used Date Smoking Tobacco: Every Day Cigarettes Comments:pt lethargic Comments Unknown Sex and Gender Information Value Date Recorded Sex Assigned at Not on file 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 Blood Collection / Unknown 12/28/2016 2:39 AM CDT 12/28/2016 5:01 AM CDT David Ortega MD CHEMISTRY ORDERABLES Final Res ult Performing Organization Address [facility] Co de Phone Number [facility] CLIA# [id number] [address] [place] [id number] * MAGNESIUM LEVEL (12/28/2016 2:39 AM CDT) [facility] MAGNESIUM 1.6 1.6 - 2.6 mg/dL 12/28/2016 5:42 AM CDT [facility] Blood Collection / Unknown 12/28/2016 2:39 AM CDT 12/28/2016 5:01 AM CDT Narrative [facility] - 12/28/2016 5:42 AM CDT Due to Latex Thread Machine Operator update, MG+ reference range has changed from 1.8 - 2.4 mg/dL to the new reference range of 1.6 - 2.6 mg/dL. This will have limited patient impact. David Ortega MD CHEMISTRY ORDERABLES Final Res ult Performing Organization Address [facility] Co de Phone Number [facility] CLIA# [id number] [address] [place] [address] * PROTIME-INR (12/28/2016 2:39 AM CDT) [facility] PROTIME 15.0 12.3 - 15.5 Seconds 12/28/2016 5:16 AM CDT [facility] INR 1.1 0.8 - 1.2 12/28/2016 5:16 AM CDT [facility] Blood Collection / Unknown 12/28/2016 2:39 AM CDT 12/28/2016 5:01 AM CDT [place] [facility] - 12/28/2016 5:16 AM CDT Expected Values for INR: DVT/PE Goal INR 2.5; range 2.0 - 3.0 Valve Replacement Tissue Goal INR 2.5; range 2.0 - 3.0 Valve Replacement Mechanical Goal INR 3.0; range 2.5 - 3.5 POST-AZ Goal INR 2.5; range 2.0 - 3.0 or Goal INR 3.0; range 2.5 - 3.5 Atrial Fibrillation Goal INR 2.5; range 2.0 - 3.0 Ischemic Stroke Goal INR 2.5; range 2.0 - 3.0 For additional information see Guidelines for Anticoagulation available from the pharmacy Wendy Vargas Pharm D. David Ortega MD HEMATOLOGY ORDERABLES Final Re sult [facility] CLIA# [id number] [address] [place] [address] * (ABNORMAL) PTT (12/28/2016 2:39 AM CDT) PTT 39.1(H) 24.8 - 38.8 seconds 12/28/2016 5:16 AM CDT [facility] Blood Collection / Unknown 12/28/2016 2:39 AM CDT 12/28/2016 5:01 AM CDT [place] [facility] - 12/28/2016 5:16 AM CDT Therapeutic Range: Hi-level PE/DVT heparin protocol 80.1 - 95.0 sec Lo-level PE/DVT heparin protocol 70.1 - 85.0 sec Cardiac Heparin Protocol 70.1 - 100.0 sec David Ortega MD HEMATOLOGY ORDERABLES Final Re sult [facility] CLIA# [id number] [facility] [place] [address] * (ABNORMAL) CBC WITH DIFFERENTIAL (12/28/2016 2:39 AM CDT) Pathologist [facility] WBC 11.0 4.5 - 11.0 K/uL 12/28/2016 5:09 AM CDT [facility] RBC 3.80(L) 4.20 - 5.40 M/uL 12/28/2016 5:09 AM CDT [facility] HEMOGLOBIN 9.3(L) 12.0 - 16.0 g/dL 12/28/2016 5:09 [facility] HEM[facility]IT 30.6(L) 36.0 - 46.0 % 12/28/2016 5:09 AM CDT [facility] MCV 80.5(L) 84.0 - 103.0 fL 12/28/2016 5:09 AM CDT [facility] MCH 24.5(L) 27.0 - 34.0 pg 12/28/2016 5:09 AM CDT [facility] MCHC 30.4 30.0 - 35.0 g/dL 12/28/2016 5:09 AM CDT [facility] RDW 17.3(H) 11.0 - 14.5 % 12/28/2016 5:09 AM T [facility] RDW-STDEV 51.8 37.0 - 54.0 fL 12/28/2016 5:09 AM CDT [facility] PLATELETS 757(H) 140 - 440 K/uL 12/28/2016 5:09 AM CDT [facility] MPV 8.9 8.9 - 12.8 fL 12/28/2016 5:09 AM CDT [facility] NEUTROPHILS 65 42 - 75 % 12/28/2016 5:09 AM CDT [facility] LYMPHOCYTES 19(L) 24 - 44 % 12/28/2016 5:09 AM CDT [facility] MONOCYTES 10 2 - 10 % 12/28/2016 5:09 AM CDT [facility] EOSINOPHILS 5 0 - 7 % 12/28/2016 5:09 AM CDT [facility] BASOPHILS 1 0 - 1 % 12/28/2016 5:09 AM CDT [facility] IMMATURE GRANULOCYTES 1 0 - 2 % 12/28/2016 5:09 AM CDT [facility] NEUTROPHIL ABSOLUTE 7.19 2.00 - 8.00 K/uL 12/28/2016 5:09 AM CDT [facility] LYMPHOCYTE ABSOLUTE 2.04 1.20 - 4.00 K/uL 12/28/2016 5:09 AM CDT [facility] MONOCYTE ABSOLUTE 1.06(H) 0.10 - 0.60 K/uL 12/28/2016 5:09 AM CDT [facility] EOSINOPHIL ABSOLUTE 0.60 0.00 - 0.70 K/uL 12/28/2016 5:09 AM CDT [facility] BASOPHILS ABSOLUTE 0.07 0.00 - 0.20 K/uL 12/28/2016 5:09 AM CDT [facility] IMMATURE GRANULOCYTES ABSOLUTE 0.07 0.00 - 0.10 K/uL 12/28/2016 5:09 AM T [facility] Blood Collection / Unknown 12/28/2016 2:39 AM CDT 12/28/2016 5:01 AM CDT us David Ortega MD HEMATOLOGY ORDERABLES Final Re sult [facility] CLIA# [id number] [address] [place] [address] * (ABNORMAL) COMPREHENSIVE METABOLIC PANEL (12/28/2016 2:39 AM CDT) SODIUM 143 136 - 145 mmol/L 12/28/2016 5:47 AM CDT [facility] POTASSIUM 3.3(L) 3.5 - 5.1 mmol/L 12/28/2016 5:47 AM [facility] CHLORIDE 103 98 - 107 mmol/L 12/28/2016 5:47 AM [facility] CO2 29 21 - 32 mmol/L 12/28/2016 5:47 AM [facility] CALCIUM 8.9 8.4 - 10.1 mg/dL 12/28/2016 5:47 AM [facility] BUN 13 7 - 17 mg/dL 12/28/2016 5:47 AM [facility] CREATININE 0.70 0.55 - 1.02 mg/dL 12/28/2016 5:47 AM [facility] GLUCOSE 46(LL) 74 - 106 mg/dL 12/28/2016 5:47 AM [facility] TOTAL PROTEIN 8.2 6.4 - 8.2 g/dL 12/28/2016 5:47 AM [facility] ALBUMIN 1.8(L) 3.4 - 5.0 g/dL 12/28/2016 5:47 AM [facility] BILIRUBIN TOTAL 0.2 0.2 - 1.0 mg/dL 12/28/2016 5:47 AM [facility] ALKALINE PHOSPHATASE 93 25 - 100 U/L 12/28/2016 5:47 AM [facility] AST 18 15 - 37 U/L 12/28/2016 5:47 AM [facility] ALT 18 13 - 61 U/L 12/28/2016 5:47 AM [facility] GFR >60 >=60 mL/min/1.7 3 sq meter 12/28/2016 5:47 AM [facility] Comment: eGFR has not [...] 3 sq meter 12/28/2016 5:47 AM CDT [facility] ANION GAP 11 4 - 30 mmol/L 12/28/2016 5:47 AM CDT [facility] Blood Collection / Unknown 12/28/2016 2:39 AM CDT 12/28/2016 5:01 AM CDT us David Ortega MD CHEMISTRY ORDERABLES Final Res ult [facility] CLIA# [id number] [address] [place] [address] documented in this encounter Visit Diagnoses Not on filedocumented in this encounter Care Teams Manager Center Relationship Specialty Start Date End Date Shravan Jones DO [address] [address] PCP - General Family Practice 12/04/16 documented as of this encounter
--- NOTE | 2025-04-07 23:01 | XRR_ITS ---
PROCEDURE INFORMATION: Exam: XR Chest Exam date and time: 04/07/2025 11:09 PM Age: 39 years old Clinical indication: Pain; Angina pectoris; Additional info: Chest pain TECHNIQUE: Imaging protocol: Radiologic exam of the chest. Views: 1 view. COMPARISON: CR (CHEST, ) 03/28/2025 3:32 AM FINDINGS: Lungs: Unremarkable. No consolidation. Pleural spaces: Unremarkable. No pleural effusion. No pneumothorax. Heart/Mediastinum: Unremarkable. No cardiomegaly. Bones/joints: Unremarkable. XR/XR chest 1V portable [id number] IMPRESSION: No acute findings.
--- NOTE | 2025-04-07 23:01 | ECG_ITS ---
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 Measurements Intervals [place] Rate: 74 P: 61 MS: 204 QRS: -8 QRSD: 110 T: 6 QT: 412 QTc: 459 Interpretive Statements SINUS RHYTHM POSSIBLE LEFT ATRIAL ENLARGEMENT [-0.1mV P-WAVE IN V1/V2] INFERIOR MYOCARDIAL INFARCTION , OF INDETERMINATE AGE [40+ ms Q WAVE AND/OR ST/T ABNORMALITY IN II/aVF] Compared to ECG 03/28/2025 03:10:51 NO SIGNIFICANT CHANGE Electronically Signed On 04-07-2025 23:10:05 CDT by Vance Valdez M.D. [email or web address]
--- NOTE | 2025-04-07 23:01 | W.ED.CHESTPA ---
HPI - Chest Pain General: Chief Complaint: Chest Pain Stated Complaint: Chest pain, sob Time Seen by Provider: 04/07/25 22:59 History of Present Illness: 39yo F with a significant cardiac history status post 8 cardiac stents, ESRD on HD, high cholesterol, diabetes presents with a chief complaint of left-sided squeezing and pressure-like pain with radiation to the right neck and arm, worsened with exertion. Pain has been ongoing since noon today. Patient states she is also feeling a bit short of breath though she denies fever, cough, hemoptysis or syncope. She denies any abdominal pain though she has been feeling nauseated and warm. She denies diaphoresis. No vomiting. Patient makes a little bit of urine in the morning. She denies any lower extremity swelling. Last dialysis was Saturday. Related Data Home Medications ?Medication ?Instructions ?Recorded ?Confirmed gabapentin 100 mg capsule 100 mg PO TID 12/27/23 04/07/25 clopidogrel 75 mg tablet 75 mg PO DAILY 04/28/24 04/07/25 escitalopram oxalate 20 mg tablet 20 mg PO DAILY anxiety 02/14/25 04/07/25 folic acid 1 mg tablet 1 mg PO DAILY 02/14/25 04/07/25 hydralazine 25 mg tablet 12.5 mg PO BID 02/14/25 04/07/25 tizanidine 4 mg tablet 4 mg PO Q6H PRN Muscle Spasm 02/14/25 04/07/25 nitroglycerin 0.4 mg sublingual See Rx Instructions .Route .COMPLEX 02/22/25 04/07/25 tablet Previous Rx's ?Medication ?Instructions ?Recorded blood-glucose sensor (Dexcom G6 #3 ea 06/12/22 Sensor device) blood-glucose transmitter (Dexcom #1 ea 06/12/22 G6 Transmitter device) blood-glucose,raw finish mill operator,cont #1 ea 06/12/22 (Dexcom G6 Vein Pumper) sevelamer carbonate 800 mg tablet 800 mg PO TID #90 tabs 09/16/23 aspirin 81 mg tablet,delayed 81 mg PO QAM 30 days #30 tabs 03/28/24 release atorvastatin 40 mg tablet 40 mg PO BEDTIME 30 days #30 tabs 03/28/24 AFO brace #1 ea 04/20/24 diabetic shoes with 3 inserts #1 ea 04/20/24 amlodipine 5 mg tablet 5 mg PO DAILY #30 tabs 09/30/24 bumetanide 1 mg tablet See Rx Instructions .Route 09/30/24 .COMPLEX #60 tabs insulin aspart U-100 100 unit/mL See Rx Instructions .Route 12/28/24 (3 mL) subcutaneous pen (Novolog .COMPLEX #15 mL FlexPen U-100 Insulin aspart) isosorbide mononitrate 30 mg 30 mg PO DAILY #30 tabs 02/26/25 tablet,extended release 24 hr oxycodone 5 mg tablet 5 mg PO Q8H PRN pain #20 tabs 03/04/25 Allergies Allergy/AdvReac Type Severity Reaction Status Date / Time acetaminophen AdvReac Mild ADR-Gastrointestinal Verified 04/07/25 19:26 Upset [facility] ED PFS: Medical History (Updated 04/08/25 @ 03:38 by Tara Varma MD) Chest pain Diabetes mellitus HTN (hypertension) HTN (hypertension), benign Hyperkalemia Headache Accelerated hypertension Uncontrolled type 1 diabetes mellitus ESRD (end stage renal disease) Dialysis complication Hypoglycemia Hemodialysis catheter dysfunction Colitis End stage renal disease on dialysis COPD (chronic obstructive pulmonary disease) Transaminitis Intractable nausea and vomiting Hyperlipidemia CHF (congestive heart failure), NYHA class III Pulmonary hypertension CAD (coronary artery disease) Neurogenic bladder COVID-19 Tobacco dependence Drug abuse Anemia Community acquired pneumonia Esophagitis Long-term insulin use History of pancreatitis Celiac disease Recurrent UTI Non-alcoholic fatty liver disease Arnold-Chiari malformation Diabetic gastroparesis -continue Reglan Diabetic neuropathy associated with type 1 diabetes mellitus Headache, common migraine, intractable, with status migrainosus Pleural effusion 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 History of lung surgery -s/p LLL lobectomy secondary to cavitary pneumonia (2017) History of endoscopy History of cholecystectomy Family History Grandfather Diabetes Mother CAD (coronary artery disease) Diabetes Heart disease Hypertension Brother Acute lymphoblastic leukemia (ALL) in child Grandmother Thyroid disease Denies family history of Colon cancer Ovarian cancer Prostate cancer Hyperlipidemia Breast cancer Uterine cancer Stroke Social History Smoking and tobacco/nicotine status: former use of tobacco/nicotine Quit status (tobacco/nicotine): has quit using Former quit date comment: She previously smoked <1/2 PPD, quit July 2023. Second hand smoke exposure: Yes Alcohol intake: never Substance/Drug Use: current Household members: children Housing: House Marital status: Single Current occupational status: unemployed Female Reproductive History: Spontaneous abortions: No Physical Exam Narrative: EXAM NARRATIVE: Vital signs were reviewed. Patient is alert and oriented. Patient is breathing comfortably, no increased WOB or accessory muscle use. SpO2 is above 95% on RA. Patient has clear lung sounds bilaterally, no crackles or wheezing. No hypotension or tachycardia. Patient is hyperteinsive. Patient is moving all extremities, no deformity or gross injury. No significant LE edema. Course Vital Signs: Vital signs: Vital Signs Temperature 98.1 F 04/07/25 19:16 Pulse Rate 74 04/08/25 02:00 Respiratory Rate 15 04/08/25 01:04 Blood Pressure 189/96 04/08/25 01:00 Pulse Oximetry 97 04/08/25 02:00 Oxygen Delivery Me thod Room Air 04/08/25 02:00 Oxygen Flow Rate 2.5 04/07/25 19:16 MDM - Chest Pain Medical Decision Making Patient is a 39-year-old female with a history of diabetes, high blood pressure, ESRD on HD, high cholesterol presents with a chief complaint of chest pain. She has a significant cardiac history for 8 cardiac stents. She states is similar to previous heart attacks. Differential diagnosis includes, but is not limited to, ACS, myocarditis, pericarditis, pneumonia, viral upper respiratory infection, PE, GERD, other. On initial exam, patient is hemodynamically stable nontoxic appearing. EKG was personally reviewed and interpreted and shows normal sinus rhythm with a heart rate of 74, LAD, prolonged QRS, normal QTc, no STEMI. She does have TWI in III and aVF which appear to be baseline in III but not in aVF. Repeat EKG shows normal sinus rhythm with a heart rate of 75, LAD, prolonged QRS, normal QTc, no STEMI, TWI in III and aVF. Patient was evaluated with CBC, CMP, troponin, BNP, EKG, chest x-ray. Patient has a normal white blood cell count. Her troponin is 210 which is near her baseline and I would expect this for patient on dialysis. Due to her significant cardiac history and risk factors including diabetes, high blood pressure, high cholesterol and ESRD patient will be admitted for observation and ACS rule out. Lab Data 04/08/25 01:48 04/08/25 00:45 Radiology Impressions Chest X-Ray 04/07/25 23:01 IMPRESSION: No acute findings. Laboratory Results WBC 7.31 10^3/uL (3.29-11.43) 04/08/25 01:48 Corrected WBC Cancelled 04/08/25 00:45 RBC 3.08 10^6/uL (3.85-5.65) L 04/08/25 01:48 Hgb 9.40 g/dL (11.27-16.99) L 04/08/25 01:48 Hct 28.9 % (36-47) L 04/08/25 01:48 MCV 93.8 fl (85-98) 04/08/25 01:48 MCH 30.5 pg (27-33) 04/08/25 01:48 MCHC 32.5 g/dL (30-55) 04/08/25 01:48 RDW 13.0 % (12.1-15.1) 04/08/25 01:48 Plt Count 163 10^3/cmm (157-399) 04/08/25 01:48 MPV 9.8 fL (7.4-10.4) 04/08/25 01:48 Gran % Cancelled 04/08/25 00:45 Neut % (Auto) 67.0 % 04/08/25 01:48 Lymph % (Auto) 19.4 % 04/08/25 01:48 [place] % (Auto) 8.3 % 04/08/25 01:48 Eos % (Auto) 4.2 % 04/08/25 01:48 Baso % (Auto) 0.8 % 04/08/25 01:48 Neut # (Auto) 4.89 10^3/uL (1.8-7.7) 04/08/25 01:48 Lymph # (Auto) 1.4 10^3/uL (0.8-4.8) 04/08/25 01:48 [place] # (Auto) 0.6 10^3/uL (0.2-0.9) 04/08/25 01:48 Eos # (Auto) 0.3 10^3/uL (0.0-0.8) 04/08/25 01:48 Baso # (Auto) 0.1 10^3/uL (0.0-0.1) 04/08/25 01:48 Absolute Gran (auto) Cancelled 04/08/25 00:45 Nucleated RBC % (auto) 0 % 04/08/25 01:48 Nucleated RBCs # 0.0 /100WBC 04/08/25 01:48 Sodium 133 mmol/L (136-145) L 04/08/25 00:45 Potassium 6.0 mmol/L (3.5-5.1) H 04/08/25 00:45 Chloride 93 mmol/L (98-107) L 04/08/25 00:45 Carbon Dioxide 23 mmol/L (22-29) 04/08/25 00:45 Anion Gap 23.0 (5-19) H 04/08/25 00:45 BUN 29 mg/dL (6-20) H 04/08/25 00:45 Creatinine 5.4 mg/dL (0.5-0.9) H 04/08/25 00:45 GFR Calculation 8.9 mL/min (90-130) L 04/08/25 00:45 Glucose 153 mg/dL (65-115) H 04/08/25 00:45 Calculated Osmolality 285 mOsm/kg (285-295) 04/08/25 00:45 Calcium 9.5 mg/dL (8.5-10.5) 04/08/25 00:45 Total Bilirubin 0.3 mg/dL (0.15-1.2) 04/08/25 00:45 AST 22 U/L (0-32) 04/08/25 00:45 ALT 15 U/L (0-33) 04/08/25 00:45 Alkaline Phosphatase 203 U/L (35-105) H 04/08/25 00:45 Troponin T Baseline 210 ng/L (0-10) H* 04/08/25 00:45 Troponin T 120 Minute 196.4 ng/L (0-10) H 04/08/25 02:44 Delta Troponin T -13.6 ABS# (0-10) L 04/08/25 02:44 NT-Pro-B Natriuret Pep 28795 pg/mL (0-125) H 04/08/25 00:45 Total Protein 8.0 g/dL (6.6-8.7) 04/08/25 00:45 Albumin 3.9 g/dL (3.5-5.2) 04/08/25 00:45 Globulin 4.1 g/dL (1.3-4.6) 04/08/25 00:45 All radiology interpretation(s) finalized by discharge Discharge Plan Discharge Patient Disposition: Admitted As Inpatient Clinical Impression: Angina pectoris, unstable Condition: Stable Coding Level of Care Code ED Peoples[employer] Hr Developer for Chg Fwd Heart Score HEART Score Components History: Highly Suspicious EKG: Non-specific Changes Age: Less than 45 yrs Risk Factors: >/=3 Risk Factors Troponin: Baseline Trop >45 ng/L HEART Score RESULT HEART Score: 7
[2025-04-07 23:26] VITALS: BP 162/79; PULSE 99; RESP 18; O2SAT 98
--- NOTE | 2025-04-07 23:50 | ECG_ITS ---
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 Measurements Intervals [place] Rate: 75 P: 58 CT: 202 QRS: -7 QRSD: 111 T: -3 QT: 401 QTc: 451 Interpretive Statements SINUS RHYTHM POSSIBLE LEFT ATRIAL ENLARGEMENT [-0.1mV P-WAVE IN V1/V2] INFERIOR MYOCARDIAL INFARCTION , OF INDETERMINATE AGE [40+ ms Q WAVE AND/OR ST/T ABNORMALITY IN II/aVF] Compared to ECG 04/07/2025 23:03:36 No significant changes Electronically Signed On 04-10-2025 12:05:08 CDT by Riccardo Burch M.D. [id number] [id number]
[2025-04-08] VITALS (12 sets, daily range): BP systolic 149–189; BP diastolic 81–108; PULSE 73–80; RESP 12–22; TEMP 36.4–36.9; O2SAT 95–100
[2025-04-08] MEDS: morphine 4 mg/mL SDV 1 mL 2 MG IVP ×4 (01:04→20:34)
[2025-04-08] MEDS: ondansetron 2 mg/ML SDV 2 mL 4 MG IVP (01:04)
--- NOTE | 2025-04-08 01:10 | ECG_ITS ---
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
[2025-04-08 01:21] LABS: Troponin(5th) Baseline 210 ng/L (0-10)
[2025-04-08 01:23] LABS: Carbon Dioxide 23 mmol/L (22-29)
[2025-04-08 01:46] LABS: Alanine Aminotransferase 15 U/L (0-33); Alkaline Phosphatase 203 U/L (35-105); Blood Urea Nitrogen 29 mg/dL (6-20); Chloride 93 mmol/L (98-107); Creatinine Clr Calc Pharmacy 11.8329; Glucose 153 mg/dL (65-115); Sodium 133 mmol/L (136-145)
[2025-04-08 01:47] LABS: Osmolality Calculated 285 mOsm/kg (285-295)
[2025-04-08 01:48] LABS: Albumin Level 3.9 g/dL (3.5-5.2); Calcium 9.5 mg/dL (8.5-10.5); Globulin 4.1 g/dL (1.3-4.6); Total Protein 8.0 g/dL (6.6-8.7)
[2025-04-08 01:49] LABS: Anion Gap 23.0 (5-19); Potassium 6.0 mmol/L (3.5-5.1)
[2025-04-08 01:50] LABS: Aspartate Amino Transferase 22 U/L (0-32)
[2025-04-08 01:52] LABS: NT Pro B Type Natriuretic Pept 59380 pg/mL (0-125)
[2025-04-08 01:56] LABS: Hematocrit 28.9 % (36-47); Hemoglobin 9.40 g/dL (11.27-16.99); Mean Corpuscular HGB Conc 32.5 g/dL (30-55); Mean Corpuscular Hemoglobin 30.5 pg (27-33); Mean Corpuscular Volume 93.8 fl (85-98); Nucleated Red Blood Cells % 0 %; Platelet Count 163 10^3/cmm (157-399); Red Blood Count 3.08 10^6/uL (3.85-5.65); White Blood Count 7.31 10^3/uL (3.29-11.43)
--- NOTE | 2025-04-08 03:00 | PM.HP ---
Providers/Chief Complaint Admitting Physician: Rex Lamas MD Primary Care Provider: SUZANNE Dias Chief Complaint: Chest pain, sob History of Present Illness As per the previous notes and the patient: Donita Aguilar is a 39 year old female with past medical history of coronary artery disease with multiple stents, end-stage renal disease on dialysis Saturday and Saturdays, her last PCI was ostial circumflex with 1 stent and she is on aspirin and Plavix has been following with her intermittent chest pains with the cardiology as outpatient, came to ER with continued chest pain that started yesterday at 6:30 PM in the evening and continued till her presentation in the ER. The patient described pain as central, pressure-like with radiation to the back and the left arm. Feels like pressure and does not seem to change with exertion or movement. The patient did not report any lower leg swellings any presyncope or syncope like episodes no diaphoresis palpitations or headaches. The patient feels mildly nauseous but did not report any vomiting. No change in her urinary or bowel habits. Rest of the review of system is unremarkable Review of Systems General: Reports: 10 or more systems reviewed and unremarkable except in HPI and below Medications/Allergies Home Medications ?Medication ?Instructions ?Recorded ?Confirmed ?Last Taken ?Type blood-glucose sensor (Dexcom G6 #3 ea 06/12/22 04/07/25 Unknown Rx Sensor device) blood-glucose transmitter (Dexcom #1 ea 06/12/22 04/07/25 Unknown Rx G6 Transmitter device) blood-glucose,manager quality compliance,cont #1 ea 06/12/22 04/07/25 Unknown Rx (Dexcom G6 Environmental Tech) sevelamer carbonate 800 mg tablet 800 mg PO TID #90 tabs 09/16/23 04/07/25 03/04/25 Rx gabapentin 100 mg capsule 100 mg PO TID 12/27/23 04/07/25 03/04/25 History aspirin 81 mg tablet,delayed 81 mg PO QAM 30 days #30 tabs 03/28/24 04/07/25 03/04/25 Rx release atorvastatin 40 mg tablet 40 mg PO BEDTIME 30 days #30 tabs 03/28/24 04/07/25 03/03/25 Rx AFO brace #1 ea 04/20/24 04/07/25 Unknown Rx diabetic shoes with 3 inserts #1 ea 04/20/24 04/07/25 Unknown Rx clopidogrel 75 mg tablet 75 mg PO DAILY 04/28/24 04/07/25 03/04/25 History amlodipine 5 mg tablet 5 mg PO DAILY #30 tabs 09/30/24 04/07/25 03/04/25 Rx bumetanide 1 mg tablet See Rx Instructions .Route 09/30/24 04/07/25 03/03/25 Rx .COMPLEX #60 tabs insulin aspart U-100 100 unit/mL See Rx Instructions .Route 12/28/24 04/07/25 02/21/25 Rx (3 mL) subcutaneous pen (Novolog .COMPLEX #15 mL FlexPen U-100 Insulin aspart) escitalopram oxalate 20 mg tablet 20 mg PO DAILY anxiety 02/14/25 04/07/25 03/04/25 History folic acid 1 mg tablet 1 mg PO DAILY 02/14/25 04/07/25 03/04/25 History hydralazine 25 mg tablet 12.5 mg PO BID 02/14/25 04/07/25 03/04/25 History tizanidine 4 mg tablet 4 mg PO Q6H PRN Muscle Spasm 02/14/25 04/07/25 Unknown History nitroglycerin 0.4 mg sublingual See Rx Instructions .Route .COMPLEX 02/22/25 04/07/25 Unknown History tablet isosorbide mononitrate 30 mg 30 mg PO DAILY #30 tabs 02/26/25 04/07/25 03/04/25 Rx tablet,extended release 24 hr oxycodone 5 mg tablet 5 mg PO Q8H PRN pain #20 tabs 03/04/25 04/07/25 Unknown Rx Allergies Allergy/AdvReac Type Severity Reaction Status Date / Time acetaminophen AdvReac Mild ADR-Gastrointestinal Verified 04/07/25 19:26 Upset PFSH Acute PFSH: Medical History (Updated 04/04/25 @ 16:59 by Chato Frye DPM) Chest pain Diabetes mellitus HTN (hypertension) HTN (hypertension), benign Hyperkalemia Headache Accelerated hypertension Uncontrolled type 1 diabetes mellitus ESRD (end stage renal disease) Dialysis complication Hypoglycemia Hemodialysis catheter dysfunction Colitis End stage renal disease on dialysis COPD (chronic obstructive pulmonary disease) Transaminitis Intractable nausea and vomiting Hyperlipidemia CHF (congestive heart failure), NYHA class III Pulmonary hypertension CAD (coronary artery disease) Neurogenic bladder COVID-19 Tobacco dependence Drug abuse Anemia Community acquired pneumonia Esophagitis Long-term insulin use History of pancreatitis Celiac disease Recurrent UTI Non-alcoholic fatty liver disease Arnold-Chiari malformation Diabetic gastroparesis -continue Reglan Diabetic neuropathy associated with type 1 diabetes mellitus Headache, common migraine, intractable, with status migrainosus Pleural effusion 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 History of lung surgery -s/p LLL lobectomy secondary to cavitary pneumonia (2017) History of endoscopy History of cholecystectomy Family History Grandfather Diabetes Mother CAD (coronary artery disease) Diabetes Heart disease Hypertension Brother Acute lymphoblastic leukemia (ALL) in child Grandmother Thyroid disease Denies family history of Colon cancer Ovarian cancer Prostate cancer Hyperlipidemia Breast cancer Uterine cancer Stroke Social History Smoking and tobacco/nicotine status: former use of tobacco/nicotine Quit status (tobacco/nicotine): has quit using Former quit date comment: She previously smoked <1/2 PPD, quit July 2023. Second hand smoke exposure: Yes Alcohol intake: never Substance/Drug Use: current Household members: children Housing: House Marital status: Single Current occupational status: unemployed Female Reproductive History: Spontaneous abortions: No Vitals/I&O/Wt Last Vital Signs Temp 98.1 F 04/07/25 19:16 Pulse 74 04/08/25 02:00 Resp 15 04/08/25 01:04 BP 189/96 04/08/25 01:00 Pulse Ox 97 04/08/25 02:00 O2 Del Method Room Air 04/08/25 02:00 O2 Flow Rate 2.5 04/07/25 19:16 Weight last 48 hrs Weight 64.41 kg Physical Exam Narrative: General: Alert and oriented, lying comfortably without any distress HEENT: Normocephalic, atraumatic, grossly unremarkable exam Cardio: normal rate rhythm, normal S1-S2 without any murmurs, rubs, or gallops and JVD normal Respiratory: normal vascular breathing on auscultation without any wheezes, stridor, rhonchi GI: Abdomen soft, nontender, nondistended, normoactive bowel sounds present all 4 quadrants, Neuro: intact cranial nerves motor and sensory and cerebellar/coordination function without any focal neurological deficit Behavior: Appropriate and cooperative Extremities: Adequate palpable pulses, mild trace edema., Left AV fistula with thrill appreciated Data 04/08/25 01:48 04/08/25 00:45 A&P Assessment and plan 1. Chest pain: Considering patient history of chronic artery disease on multiple stents to be kept for observation Patient troponins were high however seems like to be baseline in comparison to the previous reading considering she is end-stage renal disease. - Trend troponin and serial EKGs - Telemetry monitoring -Patient on home medication nitroglycerin and isosorbide mononitrate 30 mg daily, to initiate reconciliation -Resume home medication aspirin and Plavix with statins after reconciliation - The patient underwent cardiac stress test in April this year and did not show any signs of ischemia, and has been following with the cardiology as outpatient and mentioned to treat possible costochondritis as well. 2. Costochondritis: Patient is following with the cardiology with a possible diagnosis of costochondritis as well causing atypical chest pain. However costochondritis treatment needs NSAIDs and as per the patient she is not supposed to take NSAIDs as per the nephrology because of possible fluid retention. To discuss with the nephrology as outpatient for further management of costochondritis with NSAIDs since it may also further relieve her symptoms. Home medication tizanidine 4 mg every 6 as needed for muscular spasm to continue after reconciliation 3. HTN (hypertension): Resume home medication, amlodipine 5 mg daily, hydralazine 12.5 twice daily after reconciliation 4. Diabetes mellitus: She is end-stage renal disease insulin sliding scale and to monitor blood glucose 5. End stage renal disease on dialysis: Patient on dialysis on Saturday and Saturdays To discuss tomorrow with nephrology for her scheduled dialysis session To continue sevelamer carbonate 800 mg 3 times daily after reconciliation 6. Peripheral neuropathy: Continue home medication gabapentin 100 mg 3 times daily after reconciliation 7. Atherosclerotic heart disease of [place] coronary artery with other forms of angina pectoris: Continue aspirin statin and Plavix as per home dose PDMP PDMP Reviewed: Not Reviewed Attestations Medical Necessity Statement*: Donita Aguilar's hospital stay will be less than 2 midnights for for atypical chest pain Time Spent in Patient Care: 16 - 35 minutes (>than 50% of time spent in counselling and/or direct pt care on unit). Other Attestations: Patient condition has been discussed at length with the patient/family, I have independently reviewed the chart labs imaging/diagnostics/EKG. the goals of care and code status with the patient/family/NOK/legal sales utility representative, and documented accordingly. The patient/family has been informed about the current condition and further plan of care. Agreed with the plan of care and understood without any language barrier. Every effort was made to ensure accuracy of delivery representative. Any obvious errors or omissions should be clarified with the author of the document. Coding Level of Care Code Acute Code for Chg Fwd Diagnoses Chest pain R07.9 Costochondritis M94.0 HTN (hypertension) I10 Diabetes mellitus E11.9 End stage renal disease on dialysis N18.6; Z99.2 Peripheral neuropathy G62.9 Atherosclerotic heart disease of [place] coronary artery with other forms of angina pectoris I25.118
[2025-04-08 03:09] LABS: Troponin 5 2HR Delta -13.6 ABS# (0-10)
[2025-04-08 03:10] LABS: Troponin 5 2HR 196.4 ng/L (0-10)
[2025-04-08] MEDS: pantoprazole 40 mg SDV IVP (05:03)
[2025-04-08] MEDS: heparin 5,000 unit/mL INJ 1 mL 5000 UNIT SUBCUT (05:03)
[2025-04-08] MEDS: alum-mag-hydroxide-sime 30 mL UDC 15 ML PO ×3 (05:03→20:34)
--- NOTE | 2025-04-08 05:07 | ECG_ITS ---
[employer] Test Date: 2025-04-08 Pat Name: Donita Aguilar Department: Room: Gender: Female Stamp Collector: : 1985 Requested By: Tara Varma Order Number: [id number] Reading MD: Measurements Intervals [place] Rate: 73 P: 56 [place]: 206 QRS: -10 QRSD: 113 T: 40 QT: 421 QTc: 466 Interpretive Statements SINUS RHYTHM POSSIBLE LEFT ATRIAL ENLARGEMENT [-0.1mV P-WAVE IN V1/V2] MODERATE INTRAVENTRICULAR CONDUCTION DELAY [110+ ms QRS DURATION] [id number]
[2025-04-08 07:02] LABS: Troponin 5 6HR Delta 4.9 ng/L (0-12)
[2025-04-08 07:07] LABS: Troponin 5 6HR 214.9 ng/L (0-10)
[2025-04-08] MEDS: heparin, porcine 1,000 unit/mL INJ 10 mL 1000 UNIT IV (14:30)
--- NOTE | 2025-04-08 15:20 | P.MISC_ITS ---
Miscellaneous Note Purpose of Documentation: overnight labs and H&P Reviwed 39-year-old lady with multiple comorbidi ties including history of CAD with stents, ESRD on dialysis, diabetes, who presented to the hospital with chest pain. Patient has recently been seen by cardiology as an outpatient after multiple testing for cardiac disease did not reveal an obvious cardiac cause of her chest pain. She had a dobutamine stress test on 02/26/2025 which was negative for inducible ischemia. Echocardiogram was negative for pericardial effusion. She was diagnosed with costochondritis and it appears the pattern stamper discussed using NSAIDs with certified technician specialist and ultimately patient was asked to trial NSAID and muscle relaxants. CT of her chest from December 2024 did not show any signs of acute PE or thoracic aortic dissection. Her baseline troponin was noted to be at 210, at 196 at 2 hours and then 214 at 6 hours., Noted to have chronically elevated troponins in the past, most recently 185 from March 28, 2025.Continue tizanidine. Planned dialysis today given hyperkalemia
[2025-04-08] MEDS: diphenhydrAMINE 50 mg/mL SDV 1mL IVP (15:22)
[2025-04-08 16:04] LABS: Alanine Aminotransferase 16 U/L (0-33); Albumin Level 3.6 g/dL (3.5-5.2); Alkaline Phosphatase 175 U/L (35-105); Anion Gap 16.6 (5-19); Aspartate Amino Transferase 20 U/L (0-32); Blood Urea Nitrogen 28 mg/dL (6-20); Calcium 8.6 mg/dL (8.5-10.5); Carbon Dioxide 26 mmol/L (22-29); Chloride 97 mmol/L (98-107); Creatinine Clr Calc Pharmacy 14.2177; Globulin 3.4 g/dL (1.3-4.6); Glucose 138 mg/dL (65-115); Osmolality Calculated 288 mOsm/kg (285-295); Potassium 4.6 mmol/L (3.5-5.1); Sodium 135 mmol/L (136-145); Total Protein 7.0 g/dL (6.6-8.7)
--- NOTE | 2025-04-08 17:53 | P.CONIM_ITS ---
Providers/Reason For Consult 2 Consulting Physician/Specialty*: kommana/Nephrology Reason for Consult*: esrd Attending Physician: Barbara Guevara MD Primary Care Provider: SUZANNE Dias History of Present Illness History of Present Illness Donita Aguilar is a 39 year old female Patient is a 39-year-old female with past medical history of end-stage renal disease on dialysis, on TTS schedule, diabetes, hypertension, coronary artery disease presented to the emergency department due to Chest pain. Labs reviewed . Review of Systems 2 Narrative: negative Medications/Allergies Home Medications ?Medication ?Instructions ?Recorded ?Confirmed ?Last Taken ?Type blood-glucose sensor (Dexcom G6 #3 ea 06/12/22 5 Unknown Rx Sensor device) blood-glucose transmitter (Dexcom #1 ea 06/12/2204/08 Unknown Rx G6 Transmitter device) blood-glucose,ticker wirer,cont #1 ea 06/12/22 04/08/25 Un known Rx (Dexcom G6 Fitness Plan Coordinator) sevelamer carbonate 800 mg tablet 800 mg PO TID #90 ta bs 09/16/23 04/08/25 04/07/25 14:00 Rx gabapentin 100 mg capsule 100 mg PO TID 12/27/2304/0804/07/25 13:00 History aspirin 81 mg tablet,delayed 81 mg PO QAM 30 days #30 tabs 03/28/24 04/08/25 04/07/25 08:00 Rx release atorvastatin 40 mg tablet 40 mg PO BEDTIME 30 days #30 tabs 03/28/24 04/08/25 04/06/25 19:00 Rx AFO brace #1 ea 04/20/24 04/08/25 Unkn own Rx diabetic shoes with 3 inserts #1 ea 04/20/24 04/08/25 Unknown Rx clopidogrel 75 mg tablet 75 mg PO DAILY 04/28/2403/2404/07/25 History amlodipine 5 mg tablet 5 mg PO DAILY #30 tabs 09/3004/08/25 04/07/25 08:00 Rx insulin aspart U-100 100 unit/mL See Rx Instructions . Route 12/28/24 04/08/25 02/21/25 Rx (3 mL) subcutaneous pen (Novolog .COMPLEX #15 mL FlexPen U-100 Insulin aspart) escitalopram oxalate 20 mg tablet 20 mg PO DAILY anxie ty 02/14/25 04/08/25 04/07/25 History folic acid 1 mg tablet 1 mg PO DAILY 02/14/2504/0804/07/25 History hydralazine 25 mg tablet 12.5 mg PO BID 02/14/2503/2404/07/25 09:00 History tizanidine 4 mg tablet 4 mg PO Q6H PRN Muscle Spasm 02/14/25 04/08/25 Unknown History nitroglycerin 0.4 mg sublingual See Rx Instructions .R oute .COMPLEX 02/22/25 04/08/25 Unknown History tablet isosorbide mononitrate 30 mg 30 mg PO DAILY #30 tabs 0 02/26/25 04/08/25 04/07/25 Rx tablet,extended release 24 hr Allergies Allergy/AdvReac Type Severity Reaction Status Date / Time acetaminophen AdvReac Mild ADR-Gastrointestinal Verified 04/07/25 19:26 Upset Current Medications Generic Name Dose Route Start Last Admin Trade Name Fre PRN Reason Stop Dose Admin Al Hydrox/Mg Hydrox/Simethicone 15 ml 04/08/25 03:30 04/08/25 17:15 Lvpv-Tfo-Taqwpgcwa-Rubén 30 Ml Udc PO Not Given Q6H SHAY Diphenhydramine HCl 50 mg 04/08/25 14:36 04/08/25 15:22 Diphenhydramine 50 Mg/Ml Sdv 1ml IVP 50 mg ONCE PRN Administration ITCHING Heparin Sodium (Porcine) 5,000 unit 04/08/25 03:30 04/08/25 17:15 Heparin 5,000 Unit/Ml Inj 1 Ml SUBCUT Not Given Q12H [facility] Insulin Human Lispro 0 unit 04/08/25 08:00 04/08/25 17:15 Insulin Lispro 100 Unit/1 Ml SUBCUT Not Given WM&BEDTIME [facility] Protocol Morphine Sulfate 2 mg 04/08/25 03:19 04/08/25 14:12 Morphine 4 Mg/Ml Sdv 1 Ml IVP 2 mg Q4H PRN Administration SEVERE PAIN Pantoprazole Sodium 40 mg 04/08/25 03:30 04/08/25 05:03 Pantoprazole 40 Mg Sdv IVP 40 mg Q24H SHAY Administration PFSH Acute 2 PFSH: Medical History (Updated 04/08/25 @ 03:38 by Tara Varma MD) Chest pain Diabetes mellitus HTN (hypertension) HTN (hypertension), benign Hyperkalemia Headache Accelerated hypertension Uncontrolled type 1 diabetes mellitus ESRD (end stage renal disease) Dialysis complication Hypoglycemia Hemodialysis catheter dysfunction Colitis End stage renal disease on dialysis COPD (chronic obstructive pulmonary disease) Transaminitis Intractable nausea and vomiting Hyperlipidemia CHF (congestive heart failure), NYHA class III Pulmonary hypertension CAD (coronary artery disease) Neurogenic bladder COVID-19 Tobacco dependence Drug abuse Anemia Community acquired pneumonia Esophagitis Long-term insulin use History of pancreatitis Celiac disease Recurrent UTI Non-alcoholic fatty liver disease Arnold-Chiari malformation Diabetic gastroparesis -continue Reglan Diabetic neuropathy associated with type 1 diabetes mellitus Headache, common migraine, intractable, with status migrainosus Pleural effusion 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 History of lung surgery -s/p LLL lobectomy secondary to cavitary pneumonia (2017) History of endoscopy History of cholecystectomy Family History Grandfather Diabetes Mother CAD (coronary artery disease) Diabetes Heart disease Hypertension Brother Acute lymphoblastic leukemia (ALL) in child Grandmother Thyroid disease Denies family history of Colon cancer Ovarian cancer Prostate cancer Hyperlipidemia Breast cancer Uterine cancer Stroke Social History Smoking and tobacco/nicotine status: former use of tobacco/nicotine Quit status (tobacco/nicotine): has quit using Former quit date comment: She previously smoked <1/2 PPD, quit July 2023. Second hand smoke exposure: Yes Alcohol intake: never Substance/Drug Use: current Household members: children Housing: House Marital status: Single Current occupational status: unemployed Female Reproductive History: Spontaneous abortions: No Vitals/I&O/Wt Last Vital Signs Temp 97.9 F 04/08/25 08:00 Pulse 73 04/08/25 12:00 Resp 20 H 04/08/25 14:12 BP 150/97 04/08/25 12:00 Pulse Ox 95 04/08/25 14:12 O2 Del Method Room Air 04/08/25 05:08 O2 Flow Rate 2.5 04/07/25 19:16 04/08/25 04/08/25 04/08/25 06:59 14:59 22:59 Intake Total 240 / 240 Balance 240 / 240 Weight last 48 hrs Weight 64.58 kg Weight 64.58 kg Weight 64.682 kg Weight 64.41 kg Physical Exam 2 Narrative: Vital signs noted. Blood pressure improved. Patient sitting up in bed no apparent distress no longer using any oxygen HEENT normocephalic atraumatic. Neck supple Lungs clear bilateral. Heart positive S1-S2 positive regular. Abdomen is soft positive bowel sounds. Extremities positive left AV fistula. 1+ leg edema is improving mostly just at the ankles. Neuro awake alert oriented x 3 Data 04/08/25 01:48 04/08/25 15:38 A&P Assessment and plan 1. ESRD (end stage renal disease): 39-year-old lady history of ESRD diastolic dysfunction hypertension type 1 diabetes. 1. End-stage renal disease: Continue dialysis Saturday and Saturday. 2. Chest pain , h/o CAD , now with NSTEMI 3. Hypertension, continue current medications 4. Diabetes 5. Anemia : will order MAX Seen and examined with aid of a nurse using A/V equipment. Patient consented to telehealth time to hemodialysis Plan: See above PDMP PDMP Reviewed: Not Reviewed Consult Attestations 2 Medical Necessity Statement: PER MEDICNE Coding Level of Care Code Acute Code for Chg Fwd Diagnoses ESRD (end stage renal disease) N18.6
--- OUTSIDE RECORDS SUMMARY | 2025-04-08 22:48 | XMS_ITS | Encounter Summary ---
Author Organization [facility], [facility] Address [address] [place] [address] Phone Care Team Providers Care Stone Gang Sawyer Name Role Phone Alexis Garcia MD Primary Care Provider [phone] Encounter Details Date Type Department Care Team (Late st Contact Info) Description 12/29/2024 TCM in Dialysis Clinic [facility], [facility] [address] [place] [address] Yann Lozano NP [address] [place] [address] Social History Tobacco Use Types [...] CDT Patient: Donita Aguilar : 1985 C: [facility] Note Type: Dialysis TCM Service Date: 12/29/2024 The patient was seen for a kyiy-pl-yrdp visit as part of Transitional Care Management services. Attending Test Equipment Mechanic: MACHO JOHANSEN Dialysis Location: [facility] Schedule: Shift: 2 INTERACTIVE CONTACT This vetk-wj-dxyp visit occurred within 2 business days of the patient?s discharge. COMMENTS: Seen on HD machine during dialysis HOSPITALIZATION SUMMARY Patient transitioned from: Hospital Patient transitioned to: Home Admit Date: 12/26/2024 Discharge Date: 12/28/2024 Discharged info reviewed: No outstanding diagnostic tests and treatments Reason for admission: Admission Dx: CP Discharge Dx: Non-cardiac chest pain ESRD Atherosclerotic heart disease of rampart coronary artery with other forms of angina [...] Three times a day With Meals. Current [facility] Allergies Allergen: acetaminophen Reaction: Nausea/Vomiting TREATMENT MEDICATIONS [...] to follow with cardiology, pcp, pulmonology and electronic component processor as noted on discharge. EDUCATION Education relevant [...] or secondary infection VISIT DIAGNOSES CPT Code 56192 - High complexity, seen within 7 days of discharge. I20.9 Angina pectoris (HCC) COMMENTS: Verified she has nitroglycerin on hand at home: reviewed appropriate usage. Instructed to call cardiology for follow up appointment K76.0 Fatty (change of) liver, not elsewhere classified COMMENTS: Newly dx on imaging. Per hospital records, has been referred to electronic component processor. Monitor for liver dysfunction, assess for any needed support J18.9 Pneumonia, unspecified organism COMMENTS: Monitor for impaired perfusion, fever/chills, increased SOB. If symptoms present, send for CXray. Advised to call pulmonology for follow up as referred by hospital I25.118 Atherosclerotic heart disease of rampart coronary artery with other forms of angina pectoris COMMENTS: RCA is moderate size and caliber vessel which is dominant had proximal 40% stenosis. Left main has luminal irregularity with distal 10% stenosis. Cardiology recommended medical management. Negative for angina on assessment today Reviewed symptoms, usage of nitro: instructed to call cardiology for follow up appt. I27.785 Atherosclerosis of other coronary artery bypass graft(s) [...] on filedocumented in this encounter Care Teams Stone Gang Sawyer Relationship Specialty Start Date End Date Alexis Garcia MD [address] [place] [address] PCP - General Family Medicine 04/16/22 documented as of this encounter
--- OUTSIDE RECORDS SUMMARY | 2025-04-08 22:48 | XMS_ITS | Clinical Summary ---
Author Organization [facility] Address [address] [address] Care Team Providers Care Pelts Skinner Name Role Phone Alexis Garcia MD Primary Care Provider [phone] Encounters Date Type Department Care Team Description 04/01/2025 Orders Only [facility], [facility] [address] [place] [address] Chey Navas MD 03/30/2025 Treatment [facility] [employer], [facility] [address] [place] [address] Karlene Cespedes NP End stage renal disease; Dependence on renal dialysis 03/25/2025 Treatment [facility] [employer], [facility] [address] [place] [address] Melissa Wiley NP End stage renal disease; Dependence on renal dialysis 03/25/2025 Orders Only [facility], [facility] [address] [place] [address] Chey Navas MD 03/18/2025 Orders Only [facility] [address] [place] [address] Chey Navas MD 03/16/2025 [facility] [employer], [facility] [address] [place] [address] Chey Navas MD End stage renal disease; Dependence on renal dialysis 03/11/2025 Orders Only [facility] [employer] [employer] [address] [place] [address] Chey Navas MD 03/09/2025 [facility], [facility] [address] [place] [address] Melissa Wiley NP End stage renal disease; Dependence on renal dialysis 03/04/2025 [facility], [facility] [address] [place] [address] Chey Navas MD 03/02/2025 Orders Only [facility], [facility] [address] [place] [address] Chey Navas MD 03/02/[address] [place] [address], [facility] [address] [place] [address] Melissa Wiley NP End stage renal disease; Dependence on renal dialysis 02/18/2025 Orders [facility], [facility] [address] [place] [address] Chey Navas MD 02/11/2025 Orders [facility], [facility] [address] [place] [address] Chey Navas MD 02/09/[address] [place], [place] [address]rology [facility], [facility] [address] [place] [address] Chey Navas MD End stage renal disease; Dependence on renal dialysis 02/04/2025 [facility], [facility] [address] [place] [address] Chey Navas MD 02/02/[address] [place], [place] [address]rology [facility], [facility] [address] [place] [address] Karlene Cespedes NP End stage renal disease; Dependence on renal dialysis 01/28/[address] [place], [place] [address]rology [facility], [facility] [address] [place] [address] Melissa Wiley NP End stage renal disease; Dependence on renal dialysis 01/28/2025 Orders Only [facility], [facility] [address] [place] [address] Chey Navas MD 01/21/2025 [facility], [facility] [address] [place] [address] Chey Navas MD 01/14/2025 Orders Only [facility], [facility] [address] [place] [address] Chey Navas MD 01/12/2025 [facility], [facility] [address] [place] [address] Chey Navas MD End stage renal disease; Dependence on renal dialysis 01/07/2025 Orders Only [facility], [facility] [address] [place] [address] Chey Navas MD from Last 3 Months [...] Risk Dialysis Recombivax 3-dose series) 03/13/2001 03/13/2000, 2 000, 09/06/1999 Pneumococcal Vaccine: Peds ( 0 [...] resultswithin the time period is included. Hemoglobin 9.8(L) 12.0 - 16.0 g/dL [facility] Hemoglobin x 3 29.4(L) 36.0 - 48.0 % [facility] Reticulocyte Hemoglobin 30.5 25.4 - 31.8 pg [facility] 04/01/2025 04/02/2025 11: 03 AM CDT Narrative [facility] - 04/02/2025 Unless otherwise specified, test(s) performed at: [facility], [address] [place], [place] [id number] AGRICULTURAL EQUIPMENT OPERATOR: Jose Luis France M.D. For any questions, please call customer service at FREQUENCY:OTHER Resulting Agency Comment Specimen source: Blood us Chey Navas MD LAB BLOOD ORDERABLES Final Re sult [facility] See order comments or contact performing lab Unknown, [place] * HD KINETICS (03/25/2025) Only the most recent of3 resultswithin the time period is included. Pathologist [facility] % Urea Reduction 79 65 - 80 % [facility] 03/25/2025 03/26/2025 11: 23 AM CDT Narrative Resulting Agency Comment Specimen source: Plasma us Chey Navas MD LAB BLOOD ORDERABLES Final Re sult Performing Organization Address City/[facility]/ZIP Co de Phone Number [facility] See order comments or contact performing lab Unknown, [place] * (ABNORMAL) POST CHEMISTRY (03/25/2025) Only the most recent of3 resultswithin the time period is included. BUN Post Dialysis 5(L) 6 - 19 mg/dL [facility] 03/25/2025 03/26/2025 11: 23 AM CDT Narrative [facility] - 03/26/2025 Unless otherwise specified, test(s) performed at: [facility], [address] [place] [address] AGRICULTURAL EQUIPMENT OPERATOR: Jose Luis France M.D. For any questions, please call customer service at FREQUENCY:MONTHLY Resulting Agency Comment Specimen source: Plasma Chey Navas MD LAB BLOOD ORDERABLES Final [facility] Performing Organization Address [facility] Co de Phone Number [facility] See order comments or contact performing [...] 03/25/2025 03/26/2025 10: 36 AM CDT Narrative [facility] 03/26/2025 Unless otherwise specified, test(s) performed at: [facility], [address] [place] [address] AGRICULTURAL EQUIPMENT OPERATOR: Jose Luis France M.D. For any questions, please call customer service at FREQUENCY:MONTHLY Resulting Agency Comment Specimen source: Serum Chey Navas MD LAB BLOOD ORDERABLES Final Re sult [facility] See order comments or contact performing lab Unknown, [place] * [facility] Results (03/25/2025) Only the most recent of3 resultswithin the time period is included. nPCR_HD 0.55 [facility] spKt/V (Daugirdas II) 1.80 [facility] eKt/V Gotch 1.54 [facility] eNPCR 0.52 [facility] eKdrt/V 1.54 [facility] PCR 27.03 [facility] WSTDKT/V 2.6 [facility] spKt/V Gotch 1.82 [facility] eKt/V (Tattersall) 1.55 [facility] 03/25/2025 03/25/2025 [facility] Ordering Provider LAB BLOOD ORDERABLES Final Result [facility] Center Contact Performing lab Unknown, [place] * (ABNORMAL) SPECIAL CHEMISTRY (03/02/2025) Pathologist [facility] Hemoglobin A1C 6.5(H) 4.8 - 5.9 % [facility] 03/02/2025 03/03/2025 11: 04 AM CDT Narrative Resulting Agency Comment Specimen source: Blood Chey Navas MD LAB BLOOD BANK TEST ORDERABLE S Final Result Performing Organization Address City/[facility]/ZIP Co de Phone Number [facility] See order comments or contact performing lab Unknown, [place] * IMMUNO CHEMISTRY (03/02/2025) Pathologist [facility] Hepatitis C Antibody Nonreactive Nonreactive [facility] Comment: No HCV antibody detected. The above test result was obtained using Siemens MergeOpticsaur XP chemiluminescent method. Results obtained with different assay methods or kits cannot be used interchangeably. S/CO Ratio 0.03 0.00 - 0.79 [facility] Comment: s/co ratio Interpretation Supplemental testing <0.80 Nonreactive No further testing required. 0.80-0.99 Equivocal HCV RNA Quantitative Real-Time PCR is recommended. 1.00->11.00 Reactive HCV RNA Quantitative Real-Time PCR is recommended to distinguish active from resolved cases. 03/02/2025 03/03/2025 11: 29 AM CDT Narrative [facility] - 03/03/2025 Unless otherwise specified, test(s) performed at: [facility], [address] [place] [address] AGRICULTURAL EQUIPMENT OPERATOR: Jose Luis France M.D. For any questions, please call customer service at FREQUENCY:MONTHLY Resulting Agency Comment Specimen source: Serum Chey Navas MD LAB BLOOD ORDERABLES Final Re sult Performing Organization Address City/[facility] Co de Phone Number [facility] See order comments or contact performing lab Unknown, [place] * TRACE ELEMENTS (03/02/2025) Pathologist [facility] Aluminum 5 0 - 10 mcg/L [facility] Comment: This test was developed and its performance characteristics determined by [facility]. It has not been cleared or approved by the FDA. The laboratory is regulated under CLIA as qualified to perform high complexity testing. This test is used for clinical purposes. It should not be regarded as investigational or for research. 03/02/2025 03/03/2025 10: 54 AM CDT [facility] - 03/03/2025 Unless otherwise specified, test(s) performed at: [facility], [address] [place], [place] [id number] AGRICULTURAL EQUIPMENT OPERATOR: Jose Luis France M.D. For any questions, please call customer service at FREQUENCY:MONTHLY Resulting Agency Comment Specimen source: Serum us Chey Navas MD LAB BLOOD ORDERABLES Final Re sult [facility] See order comments or contact performing lab Unknown, [place] from Last [address] [place] [address] Medicaid [place] ([id number]) Medicare Care Teams Pelts Skinner Relationship Specialty Start Date End Date Alexis Garcia MD [address] [place] [address] PCP - General Family Medicine 04/16/22
--- OUTSIDE RECORDS SUMMARY | 2025-04-08 22:49 | XMS_ITS | Encounter Summary ---
Author Organization [facility], [facility] Address [address] [place] [address] Phone Care Team Providers Care Business Coordinator Name Role Phone Alexis Garcia MD Primary Care Provider [phone] Encounter Details Date Type Department Care Team (Late st Contact Info) Description 04/16/2022 Orders Only [facility] [address] [place] [address] Chronic kidney disease, Stage IV [...] (severe) documented in this encounter Care Teams Business Coordinator Relationship Specialty Start Date End Date Alexis Garcia MD [address] [place] [address] PCP - General Family Medicine 04/16/22 documented as of this encounter
--- OUTSIDE RECORDS SUMMARY | 2025-04-08 22:49 | XMS_ITS | Clinical Summary ---
Author Organization [employer] Address [address] [facility] Attn: [place] [id number] Care Team Providers Care Psychiatry Resident Name Role Phone Shravan Jones DO Primary [...] subcutaneous injection. 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 [place] [address] Abel Menon DO [address] [place] [address] Health Maintenance Due Date Last [...] 10/11/1999, 09/06/1999 Medical Devices Implanted Type Area Bench Hand Machine Device Identifier Shelf Expiration Date Model / Serial / Lot Max 1gm Flour [id number] - [id number] Implanted:Qty : 2 on 12/17/2016 by Deandre Alan MD Biological Left: Lung CR BARD- DAVOL INC 09/19/2019 [id number] / / [id number] Cath Dialysis Glidepath 14.5fr 24cm Std [id number] - [id number] Implanted:Qty : 1 on 03/18/2024 by Asif Mcclellan MD at [facility] Catheter Right: Chest BARD ANGEL VASC 09/21/2025 [id number] / / [id number] Clip Ligating Horizon Red 421713 - Csc - [id number] Implanted:Qty : 1 on 08/10/2024 by Chato Fitch MD at [facility] Clip Left: Arm TELEFLEX INC [id number] 05/16/2029 [id number] / / [id number] Clip Ligating Horizon Med Ti 010371 - Csc - [id number] Implanted:Qty : 1 on 08/10/2024 by Chato Fitch MD at [facility] Clip Left: Arm TELEFLEX- WECK CLOSURE SYS [id number] 03/31/2029 [id number] / / [id number] Collar Stay Fuser Tender Ligaclip Sml Mcs20 - [id number] Implanted:Qty : 1 on 08/10/2024 by Chato Fitch MD at [facility] Clip Left: Arm J&J- ETHICON ENDO-SURGERY INC [id number] 03/23/2029 MCS20 / / [id number] Closure Perclose Prostyle Sut Mediate 26940-97 - [id number] Implanted:Qty : 1 on 09/24/2023 by Janell Beauchamp MD at [facility] Closure Device N/A: Groin LOVE- VASC DEVICE [id number] 06/23/2025 51300-25 / / [id number] Closure Perclose Prostyle Sut Mediate 17260-67 - [id number] Implanted:Qty : 1 on 10/24/2023 by Janell Beauchamp MD at [facility] Closure Device Right: Groin LOVE- VASC DEVICE [id number] 07/24/2025 57407-23 / / [id number] Oil Slc 8.5ml [id number] - Sgtin:[id number] Implanted:Qty : 1 on 06/23/2024 by Janey Carrera MD at [facility] Eye Right: Eye [facility] 12/21/2026 [id number] / [id number]:[id number] / [id number] Graft Vasc Propaten 4-1rba62as [id number] - [id number] Implanted:Qty : 1 on 08/10/2024 by Chato Fitch MD at [facility] Graft Left: Arm [employer] INC [id number] 05/21/2027 [id number] / [id number] / Agent Hemostat Surgicel 2x3in 1952s - [id number] Implanted:Qty : 1 on 08/10/2024 by Chato Fitch MD at [facility] Hemostatic Left: Arm J&J- ETHICON INC [id number] 12/21/20281952S / / [id number] Hemostatic Surgiflo 8ml W/ Thrombin 2994 - [id number] Implanted:Qty : 1 on 08/10/2024 by Chato Fitch MD at [facility] Hemostatic Left: Arm J&J- ETHICON INC [id number] 10/21/2025 2994 / / [id number] Agent Hemostat Surgicel 2x3in 1952s - [id number] Implanted:Qty : 1 on 08/10/2024 by Chato Fitch MD at [facility] Hemostatic Left: Arm J&J- ETHICON INC [id number] 12/21/20281952S / / [id number] Stent Synergy Xd 3.0x48mm Evrlms Elut [id number] - [id number] Implanted:Qty : 1 on 09/24/2023 by Janell Beauchamp MD at [facility] Stent N/A: Coronary BOSTON SCI GENEVIEVE [id number] 03/31/2025 [id number] / / [id number] Stent Synergy Xd 2.77h49nq Evrlms Elut [id number] - [id number] Implanted:Qty : 1 on 10/24/2023 by Janell Beauchamp MD at [facility] Stent Left: Coronary BOSTON SCI GENEVIEVE [id number] 08/19/2024 [id number] 220 / / [id number] Control Implant Funmi Procedures Procedure Name Priority Date/Time Associated Diagnosis Comments LIPID PANEL Routine 09/21/2023 6:47 PM CDT HEMOGLOBIN A1C Routine 09/21/2023 6:46 PM CDT from Last 3 Months or Most Recently Relevant to Health Maintenance Results * (ABNORMAL) LIPID PANEL (09/21/2023 6:47 PM CDT) CHOLESTEROL 96 <200 mg/dL 09/21/2023 10:29 PM CDT [facility] TRIGLYCERIDE 164(H) <150 mg/dL 09/21/2023 10:29 PM CDT [facility] HDL 36(L) 40 - 59 mg/dL 09/21/2023 10:29 PM CDT [facility] LDL CALCULATED 27 <100 mg/dL 09/21/2023 10:29 PM CDT [facility] NON-HDL CHOLESTEROL 60 <130 mg/dL 09/21/2023 10:29 PM CDT [facility] Blood Venipuncture / Unknown 09/21/2023 6:47 PM CDT 09/21/2023 7:10 PM CDT Narrative [facility] - 09/21/2023 10:29 PM CDT TOTAL [...] Lacy MD CHEMISTRY ORDERABLES Final R esult [facility] CLIA # [id number] [address] [place] [address] * (ABNORMAL) HEMOGLOBIN A1C (09/21/2023 6:46 PM CDT) HEMOGLOBIN A1C 6.8(H) <=5.6 % 09/23/2023 9:24 AM CDT [facility] EST. AVG GLUCOSE, A1C 148 mg/dL 09/23/2023 9:24 AM CDT [facility] Blood Venipuncture / Unknown 09/21/2023 6:46 PM CDT 09/21/2023 7:08 PM CDT Narrative [facility] - 09/23/2023 9:24 AM CDT HGB A1C INTERPRETATION NORMAL: <5.7% PRE-DIABETES: 5.7 - 6.4% DIABETES: 6.5% OR GREATER Luiz Lacy MD CHEMISTRY ORDERABLES Final R esult [facility] CLIA # [id number] [address] [address] from Last 3 Months or Most Recently Relevant to Health Maintenance Insurance [place] PART [place] B Advance Directives For more information, please contact: [phone] * Full Code (Latest Code Status on File) Date Activated Date Inactivated Comments 10/24/2023 2:34 PM 10/25/2023 11:47 AM * Full Code Date Activated Date Inactivated Comments 10/24/2023 9:13 AM 10/24/2023 2:34 PM * Full Code Date Activated Date Inactivated Comments 09/24/2023 3:14 PM 09/25/2023 9:51 PM * Full Code Date Activated Date Inactivated Comments 09/21/2023 5:50 PM 09/24/2023 3:14 PM Care Teams Psychiatry Resident Relationship Specialty Start Date End Date Shravan Jones DO [address] [address] PCP - General Family Practice 12/04/16
--- OUTSIDE RECORDS SUMMARY | 2025-04-08 22:49 | XMS_ITS | Clinical Summary ---
Author Organization [facility] Address [address] [place] [address] Phone Care Team Providers Care Gimp Buttonhole Machine Operator Name Role Phone Shravan Jones [...] on file Legal Sex Female 4:38 AM TALENT SCOUT Gender Identity Not on file Sexual Orientation [...] 10/11/1999, 09/06/1999 Medical Devices Implanted Type Area Superintendent Drilling Device Identifier Shelf Expiration Date Model / Serial / Lot Max tracy Flour [id number] - [id number] Implanted:Qty: 2 on 12/17/2016 by Deandre Alan MD at [facility] Biological Left: Lung CR BARD- DAVOL INC 09/19/2019 [id number] / / [id number] Control Implant Funmi Procedures Procedure Name Priority Date/Time Associated Diagnosis Comments HEMOGLOBIN A1C Routine 01/09/2017 2:52 AM CDT from Last 3 Months or Most Recently Relevant to Health Maintenance Results * (ABNORMAL) HEMOGLOBIN A1C (01/09/2017 2:52 AM CDT) HEMOGLOBIN A1C 8.9(H) 4.0 - 6.0 % 01/09/2017 1:31 PM CDT [facility] EST. AVG GLUCOSE, A1C 209 mg/dL 01/09/2017 1:31 PM CDT [facility] Blood 01/09/2017 2:52 AM CDT 01/09/2017 6:53 AM CDT Narrative [facility] - 01/09/2017 1:31 PM CDT Test performed on CodeGuard[employer] instrumentation using HPLC methodology us Izabela Diamond MD CHEMISTRY ORDERABLES Final Res ult [facility] CLIA# [id number] [address] [place] [address] from Last 3 Months or Most Recently Relevant to [place] [address] [facility] MEDICAID Advance Directives For more information, please contact: [phone] * Full Code (Latest Code Status on File) Date Activated Date Inactivated Comments 12/17/2016 1:05 PM 12/27/2016 11:32 PM Care Teams Gimp Buttonhole Machine Operator Relationship Specialty Start Date End Date Shravan Jones DO [address] [address] PCP - General Family Practice 12/04/16
--- OUTSIDE RECORDS SUMMARY | 2025-04-08 22:49 | XMS_ITS | Encounter Summary ---
Author Organization [facility] Address [address] [place] [address] Phone Care Team Providers Care Shipping/Receiving Manager Name Role Phone Alexis Garcia MD Primary Care Provider [phone] Encounter Details Date Type Department Care Team (Late st Contact Info) Description 04/01/2025 Orders Only [facility] [address] [place] [address] Chey Navas MD [address] [place] [address] Social History Tobacco Use Types [...] 04/02/2025 Unless otherwise specified, test(s) performed at: [facility], [address] [place] [address] [address]: Jose Luis France M.D. For any questions, please call customer service at FREQUENCY:OTHER Resulting Agency Comment Specimen source: Blood us Chey Navas MD LAB BLOOD ORDERABLES Final Re sult [facility] See order comments or contact performing lab Unknown, [place] documented in this encounter Visit Diagnoses Not on filedocumented in this encounter Care Teams Shipping/Receiving Manager Relationship Specialty Start Date End Date Alexis Garcia MD [address] [place] [address] PCP - General Family Medicine 04/16/22 documented as of this encounter
--- OUTSIDE RECORDS SUMMARY | 2025-04-08 22:49 | XMS_ITS | Encounter Summary ---
Author Organization [facility] Address [address] [place] [address] Care Team Providers Care Inventory Controller Name Role Phone Shravan Jones DO Primary Care Provider [phone] Encounter Details Date Type Department Care Team (Latest Contact Info) Description 05/14/2003 Outpatient [facility] Oral and Maxillo Surgery[address] [place] [address] Jimmy Tineo, CLIVES NO ADDRESS ON FILE UNSPEC DENTAL CARIES (Primary Dx); TOOTH POSITION ANOMALY Social History Tobacco Use Types Packs/Day Years Used Date Smoking Tobacco: Never Assessed Comments Unknown Sex and Gender Information Value Date Recorded Sex Assigned at Not on file 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
--- OUTSIDE RECORDS SUMMARY | 2025-04-08 22:50 | XMS_ITS | Encounter Summary ---
Author Organization [facility] Address [address] [place] [address] Care Team Providers Care Injection Wax Molder Name Role Phone Shravan Jones DO Primary Care Provider [phone] Encounter Details Date Type Department Care Team (Late st Contact Info) Description 12/12/2016 Nurse Only [facility] 4D Surgery Heart Lung [address] [place] [address] Stephenie Smith RN [address] [place] [address] Social History Tobacco Use Types Packs/Day Years Used Date Smoking Tobacco: Every Day Cigarettes Comments:pt lethargic Comments Unknown Sex and Gender Information Value Date Recorded Sex Assigned at Not on file Legal Sex Female 4:38 AM FILE CLERK DATA ENTRY Gender Identity Not on file Sexual Orientation Not on file documented as of this encounter Plan of Treatment Not on file documented as of this encounter Visit Diagnoses Not on filedocumented in this encounter Care Teams Injection Wax Molder Relationship Specialty Start Date End Date Shravan Jones DO [address] [phone] PCP - General Family Practice 12/04/16 documented as of this encounter
--- OUTSIDE RECORDS SUMMARY | 2025-04-08 22:50 | XMS_ITS | Encounter Summary ---
Author Organization [facility] Address [address] [place] [address] Care Team Providers Care Pharmacy District Manager Name Role Phone Shravan Jones DO Primary Care Provider Encounter Details Date Type Department Care Team (Late st Contact Info) Description 01/09/2017 Lab Requisition [facility] Laboratory Services [facility] [address] [place] [address] Izabela Diamond MD NO ADDRESS ON FILE Social History Tobacco Use Types Packs/Day Years Used Date Smoking Tobacco: Every Day Cigarettes Comments:pt lethargic Comments Unknown Sex and Gender Information Value Date Recorded Sex Assigned at Not on file 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 This will have limited patient impact. us Izabela Diamond MD CHEMISTRY ORDERABLES Final Res ult [facility] CLIA# [id number] [address] [place] [address] * (ABNORMAL) COMPREHENSIVE METABOLIC PANEL (01/09/2017 3:15 AM CDT) SODIUM 139 136 - 145 mmol/L 01/09/2017 5:53 AM CDT [facility] POTASSIUM 4.1 3.5 - 5.1 mmol/L 01/09/2017 5:53 AM T [facility] CHLORIDE 101 98 - 107 mmol/L 01/09/2017 5:53 AM T [facility] CO2 28 21 - 32 mmol/L 01/09/2017 5:53 AM T [facility] CALCIUM 8.8 8.4 - 10.1 mg/dL 01/09/2017 5:53 AM T [facility] BUN 18(H) 7 - 17 mg/dL 01/09/2017 5:53 AM T [facility] CREATININE 0.73 0.55 - 1.02 mg/dL 01/09/2017 5:53 AM T [facility] GLUCOSE 182(H) 74 - 106 mg/dL 01/09/2017 5:53 AM T [facility] TOTAL PROTEIN 8.4(H) 6.4 - 8.2 g/dL 01/09/2017 5:53 AM T [facility] ALBUMIN 2.5(L) 3.4 - 5.0 g/dL 01/09/2017 5:53 AM CDT [facility] BILIRUBIN TOTAL 0.2 0.2 - 1.0 mg/dL 01/09/2017 5:53 AM CDT [facility] ALKALINE PHOSPHATASE 99 25 - 100 U/L 01/09/2017 5:53 AM CDT [facility] AST 30 15 - 37 U/L 01/09/2017 5:53 AM CDT [facility] ALT 27 13 - 61 U/L 01/09/2017 5:53 AM CDT [facility] GFR >60 >=60 mL/min/1.7 3 sq meter 01/09/2017 5:53 AM T [facility] Comment: eGFR has not been validated [...] 3 sq meter 01/09/2017 5:53 AM CDT [facility] ANION GAP 10 4 - 30 mmol/L 01/09/2017 5:53 AM T [facility] Blood 01/09/2017 3:15 AM CDT 01/09/2017 5:12 AM CDT us Izabela Diamond MD CHEMISTRY ORDERABLES Final Res ult [facility] CLIA# [id number] [address] [place] [address] * (ABNORMAL) CBC WITH DIFFERENTIAL (01/09/2017 3:15 AM CDT) WBC 8.7 4.5 - 11.0 K/uL 01/09/2017 5:20 AM [facility] RBC 4.63 4.20 - 5.40 M/uL 01/09/2017 5:20 AM [facility] HEMOGLOBIN 11.3(L) 12.0 - 16.0 g/dL 01/09/2017 5:20 AM [facility] HEMATOCRIT 36.8 36.0 - 46.0 % 01/09/2017 5:20 AM [facility] MCV 79.5(L) 84.0 - 103.0 fL 01/09/2017 5:20 AM [facility] MCH 24.4(L) 27.0 - 34.0 pg 01/09/2017 5:20 AM [facility] MCHC 30.7 30.0 - 35.0 g/dL 01/09/2017 5:20 AM [facility] RDW 17.3(H) 11.0 - 14.5 % 01/09/2017 5:20 AM [facility] RDW-STDEV 50.4 37.0 - 54.0 fL 01/09/2017 5:20 AM [facility] PLATELETS 463(H) 140 - 440 K/uL 01/09/2017 5:20 AM [facility] MPV 9.9 8.9 - 12.8 fL 01/09/2017 5:20 AM [facility] NEUTROPHILS 46 42 - 75 % 01/09/2017 5:20 AM [facility] LYMPHOCYTES 33 24 - 44 % 01/09/2017 5:20 AM [facility] MONOCYTES 8 2 - 10 % 01/09/2017 5:20 AM [facility] EOSINOPHILS 11(H) 0 - 7 % 01/09/2017 5:20 AM [facility] BASOPHILS 1 0 - 1 % 01/09/2017 5:20 AM [facility] IMMATURE GRANULOCYTES 0 0 - 2 % 01/09/2017 5:20 AM [facility] NEUTROPHIL ABSOLUTE 4.05 2.00 - 8.00 K/uL 01/09/2017 5:20 AM CDT [facility] LYMPHOCYTE ABSOLUTE 2.86 1.20 - 4.00 K/uL 01/09/2017 5:20 AM CDT [facility] MONOCYTE ABSOLUTE 0.73(H) 0.10 - 0.60 K/uL 01/09/2017 5:20 AM CDT [facility] EOSINOPHIL ABSOLUTE 0.95(H) 0.00 - 0.70 K/uL 01/09/2017 5:20 AM CDT [facility] BASOPHILS ABSOLUTE 0.11 0.00 - 0.20 K/uL 01/09/2017 5:20 AM CDT [facility] IMMATURE GRANULOCYTES ABSOLUTE 0.03 0.00 - 0.10 K/uL 01/09/2017 5:20 AM CDT [facility] Blood 01/09/2017 3:15 AM CDT 01/09/2017 5:12 AM CDT us Izabela Diamond MD HEMATOLOGY ORDERABLES Final Re sult [facility] CLIA# [id number] [address] [place] [address] * (ABNORMAL) HEMOGLOBIN A1C (01/09/2017 2:52 AM CDT) HEMOGLOBIN A1C 8.9(H) 4.0 - 6.0 % 01/09/2017 1:31 PM CDT [facility] EST. AVG GLUCOSE, A1C 209 mg/dL 01/09/2017 1:31 PM CDT [facility] Blood 01/09/2017 2:52 AM CDT 01/09/2017 6:53 AM CDT Narrative [facility] - 01/09/2017 1:31 PM CDT Test performed on [employer] instrumentation using HPLC methodology us Izabela Diamond MD CHEMISTRY ORDERABLES Final Res ult [facility] CLIA# [id number] [address] [place] [address] documented in this encounter Visit Diagnoses Not on filedocumented in this encounter Care Teams Pharmacy District Manager Relationship Specialty Start Date End Date Shravan Jones DO [address] [address] PCP - General Family Practice 12/04/16 documented as of this encounter
--- OUTSIDE RECORDS SUMMARY | 2025-04-08 22:51 | XMS_ITS | Encounter Summary ---
Author Organization [facility] Address [address] [place] [address] Care Team Providers Care Smoking Tobacco Packing Machine Hand Name Role Phone Shravan Jones DO Primary Care Provider Encounter Details Date Type Department Care Team (Late st Contact Info) Description 01/02/2017 Lab Requisition [facility] Laboratory Services [address] [place] [address] [place] [address] Izabela Diamond MD NO ADDRESS ON FILE Social History Tobacco Use Types Packs/Day Years Used Date Smoking Tobacco: Every Day Cigarettes Comments:pt lethargic Comments Unknown Sex and Gender Information Value Date Recorded Sex Assigned at Not on file 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 Gender Identity Not on file Sexual [...] - 145 mmol/L 01/02/2017 6:07 AM CDT [facility] [employer] [facility] POTASSIUM 4.3 3.5 - 5.1 mmol/L 01/02/2017 6:07 AM CDT [facility] CHLORIDE 101 98 - 107 mmol/L 01/02/2017 6:07 AM T [facility] CO2 27 21 - 32 mmol/L 01/02/2017 6:07 AM T [facility] CALCIUM 9.7 8.4 - 10.1 mg/dL 01/02/2017 6:07 AM T [facility] BUN 16 7 - 17 mg/dL 01/02/2017 6:07 AM [facility] CREATININE 0.87 0.55 - 1.02 mg/dL 01/02/2017 6:07 AM T [facility] GLUCOSE 122(H) 74 - 106 mg/dL 01/02/2017 6:07 AM [facility] GFR >60 >=60 mL/min/1.7 3 sq meter 01/02/2017 6:07 AM T [facility] Comment: eGFR has not been validated [...] 3 sq meter 01/02/2017 6:07 AM CDT [facility] ANION GAP 10 4 - 30 mmol/L 01/02/2017 6:07 AM T [facility] Blood 01/02/2017 3:00 AM CDT 01/02/2017 5:35 AM CDT us Izabela Diamond MD CHEMISTRY ORDERABLES Final Res ult [facility] CLIA# [id number] [address] [place] [address] * (ABNORMAL) CBC WITH DIFFERENTIAL (01/02/2017 3:00 AM CDT) [facility] WBC 10.4 4.5 - 11.0 K/uL 01/02/2017 5:44 AM [facility] RBC 4.30 4.20 - 5.40 M/uL 01/02/2017 5:44 AM [facility] HEMOGLOBIN 10.4(L) 12.0 - 16.0 g/dL 01/02/2017 5:44 AM [facility] HEMATOCRIT 34.5(L) 36.0 - 46.0 % 01/02/2017 5:44 AM [facility] MCV 80.2(L) 84.0 - 103.0 fL 01/02/2017 5:44 AM [facility] MCH 24.2(L) 27.0 - 34.0 pg 01/02/2017 5:44 AM [facility] MCHC 30.1 30.0 - 35.0 g/dL 01/02/2017 5:44 AM [facility] RDW 17.4(H) 11.0 - 14.5 % 01/02/2017 5:44 AM [facility] RDW-STDEV 51.1 37.0 - 54.0 fL 01/02/2017 5:44 AM [facility] PLATELETS 764(H) 140 - 440 K/uL 01/02/2017 5:44 AM [facility] MPV 9.2 8.9 - 12.8 fL 01/02/2017 5:44 AM [facility] NEUTROPHILS 56 42 - 75 % 01/02/2017 5:44 AM [facility] LYMPHOCYTES 27 24 - 44 % 01/02/2017 5:44 AM [facility] MONOCYTES 8 2 - 10 % 01/02/2017 5:44 AM [facility] EOSINOPHILS 7 0 - 7 % 01/02/2017 5:44 AM [facility] BASOPHILS 1 0 - 1 % 01/02/2017 5:44 AM [facility] IMMATURE GRANULOCYTES 1 0 - 2 % 01/02/2017 5:44 AM CDT [facility] NEUTROPHIL ABSOLUTE 5.79 2.00 - 8.00 K/uL 01/02/2017 5:44 AM CDT [facility] LYMPHOCYTE ABSOLUTE 2.78 1.20 - 4.00 K/uL 01/02/2017 5:44 AM CDT [facility] MONOCYTE ABSOLUTE 0.85(H) 0.10 - 0.60 K/uL 01/02/2017 5:44 AM CDT [facility] EOSINOPHIL ABSOLUTE 0.76(H) 0.00 - 0.70 K/uL 01/02/2017 5:44 AM CDT [facility] BASOPHILS ABSOLUTE 0.10 0.00 - 0.20 K/uL 01/02/2017 5:44 AM CDT [facility] IMMATURE GRANULOCYTES ABSOLUTE 0.09 0.00 - 0.10 K/uL 01/02/2017 5:44 AM CDT [facility] Blood 01/02/2017 3:00 AM CDT 01/02/2017 5:35 AM CDT us Izabela Diamond MD HEMATOLOGY ORDERABLES Final Re sult [facility] CLIA# [id number] [facility] [place] [address] documented in this encounter Visit Diagnoses Not on filedocumented in this encounter Care Teams Smoking Tobacco Packing Machine Hand Relationship Specialty Start Date End Date Shravan Jones DO [address] [address] PCP - General Family Practice 12/04/16 documented as of this encounter
--- OUTSIDE RECORDS SUMMARY | 2025-04-08 22:51 | XMS_ITS | Encounter Summary ---
Author Organization [facility] Address [address] [place] [address] Care Team Providers Care Rn New Graduate Name Role Phone Shravan Jones DO Primary Care Provider [phone] Encounter Details Date Type Department Care Team (Late st Contact Info) Description 01/07/2017 Lab Requisition [facility] Laboratory Services [address] [address] [place] [address] David Ortega MD [address] [place] [address] Social History Tobacco Use Types Packs/Day Years Used Date Smoking Tobacco: Every Day Cigarettes Comments:pt lethargic Comments Unknown Sex and Gender Information Value Date Recorded Sex Assigned at Not on file 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
--- OUTSIDE RECORDS SUMMARY | 2025-04-08 22:51 | XMS_ITS | Encounter Summary ---
Author Organization [facility] Address [address] [place] [address] Care Team Providers Care Tier Lift Operator Name Role Phone Shravan Jones DO Primary Care Provider Encounter Details Date Type Department Care Team (Late st Contact Info) Description 12/31/2016 Lab Requisition [facility] Laboratory Services [address] [place] [address] David Ortega MD [address] [place] [address] Social History Tobacco Use Types Packs/Day Years Used Date Smoking Tobacco: Every Day Cigarettes Comments:pt lethargic Comments Unknown Sex and Gender Information Value Date Recorded Sex Assigned at Not on file 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 This will have limited patient impact. us David Ortega MD CHEMISTRY ORDERABLES Final Res ult [facility] CLIA# [id number] [address] [place] [address] * (ABNORMAL) COMPREHENSIVE METABOLIC PANEL (12/31/2016 2:26 AM CDT) SODIUM 138 136 - 145 mmol/L 12/31/2016 5:52 AM CDT [facility] POTASSIUM 4.7 3.5 - 5.1 mmol/L 12/31/2016 5:52 AM [facility] CHLORIDE 102 98 - 107 mmol/L 12/31/2016 5:52 AM T [facility] CO2 27 21 - 32 mmol/L 12/31/2016 5:52 AM T [facility] CALCIUM 9.1 8.4 - 10.1 mg/dL 12/31/2016 5:52 AM T [facility] BUN 17 7 - 17 mg/dL 12/31/2016 5:52 AM T [facility] CREATININE 0.87 0.55 - 1.02 mg/dL 12/31/2016 5:52 AM T [facility] GLUCOSE 214(H) 74 - 106 mg/dL 12/31/2016 5:52 AM T [facility] TOTAL PROTEIN 8.2 6.4 - 8.2 g/dL 12/31/2016 5:52 AM T [facility] ALBUMIN 1.9(L) 3.4 - 5.0 g/dL 12/31/2016 5:52 AM CDT [facility] BILIRUBIN TOTAL 0.2 0.2 - 1.0 mg/dL 12/31/2016 5:52 AM CDT [facility] ALKALINE PHOSPHATASE 95 25 - 100 U/L 12/31/2016 5:52 AM CDT [facility] AST 9(L) 15 - 37 U/L 12/31/2016 5:52 AM CDT [facility] ALT 14 13 - 61 U/L 12/31/2016 5:52 AM CDT [facility] GFR >60 >=60 mL/min/1.7 3 sq meter 12/31/2016 5:52 AM T [facility] Comment: eGFR has not been validated for [...] sq meter 12/31/2016 5:52 AM CDT [facility] ANION GAP 9 4 - 30 mmol/L 12/31/2016 5:52 AM T [facility] Blood 12/31/2016 2:26 AM CDT 12/31/2016 5:17 AM CDT us David Ortega MD CHEMISTRY ORDERABLES Final Res ult [facility] CLIA# [id number] [address] [place] [address] * (ABNORMAL) CBC WITH DIFFERENTIAL (12/31/2016 2:26 AM CDT) WBC 13.7(H) 4.5 - 11.0 K/uL 12/31/2016 6:32 AM [facility] RBC 3.66(L) 4.20 - 5.40 M/uL 12/31/2016 6:32 AM [facility] HEMOGLOBIN 9.3(L) 12.0 - 16.0 g/dL 12/31/2016 6:32 AM [facility] HEMATOCRIT 29.6(L) 36.0 - 46.0 % 12/31/2016 6:32 AM [facility] MCV 80.9(L) 84.0 - 103.0 fL 12/31/2016 6:32 AM [facility] MCH 25.4(L) 27.0 - 34.0 pg 12/31/2016 6:32 AM [facility] MCHC 31.4 30.0 - 35.0 g/dL 12/31/2016 6:32 AM [facility] RDW 17.4(H) 11.0 - 14.5 % 12/31/2016 6:32 AM [facility] RDW-STDEV 52.1 37.0 - 54.0 fL 12/31/2016 6:32 AM [facility] PLATELETS 767(H) 140 - 440 K/uL 12/31/2016 6:32 AM [facility] MPV 9.0 8.9 - 12.8 fL 12/31/2016 6:32 AM [facility] NEUTROPHILS 68 42 - 75 % 12/31/2016 6:32 AM [facility] LYMPHOCYTES 17(L) 24 - 44 % 12/31/2016 6:32 AM [facility] MONOCYTES 8 2 - 10 % 12/31/2016 6:32 AM [facility] EOSINOPHILS 6 0 - 7 % 12/31/2016 6:32 AM [facility] BASOPHILS 0 0 - 1 % 12/31/2016 6:32 AM [facility] IMMATURE GRANULOCYTES 1 0 - 2 % 12/31/2016 6:32 AM CDT [facility] NEUTROPHIL ABSOLUTE 9.26(H) 2.00 - 8.00 K/uL 12/31/2016 6:32 AM CDT [facility] LYMPHOCYTE ABSOLUTE 2.28 1.20 - 4.00 K/uL 12/31/2016 6:32 AM CDT [facility] MONOCYTE ABSOLUTE 1.07(H) 0.10 - 0.60 K/uL 12/31/2016 6:32 AM CDT [facility] EOSINOPHIL ABSOLUTE 0.82(H) 0.00 - 0.70 K/uL 12/31/2016 6:32 AM CDT [facility] BASOPHILS ABSOLUTE 0.06 0.00 - 0.20 K/uL 12/31/2016 6:32 AM CDT [facility] IMMATURE GRANULOCYTES ABSOLUTE 0.17(H) 0.00 - 0.10 K/uL 12/31/2016 6:32 AM CDT [facility] Blood 12/31/2016 2:26 AM CDT 12/31/2016 5:17 AM CDT Narrative [facility] - 12/31/2016 6:32 AM CDT Smear reviewed us David Ortega MD HEMATOLOGY ORDERABLES Final Re sult [facility] CLIA# [id number] [address] [place] [address] documented in this encounter Visit Diagnoses Not on filedocumented in this encounter Care Teams Tier Lift Operator Relationship Specialty Start Date End Date Shravan Jones DO [address] [phone] PCP - General Family Practice 12/04/16 documented as of this encounter
--- OUTSIDE RECORDS SUMMARY | 2025-04-08 22:51 | XMS_ITS | Encounter Summary ---
Author Organization [facility] Address [address] [place] [address] Care Team Providers Care Latin Dancer Name Role Phone Shravan Jones DO Primary Care Provider [phone] Reason for Visit * Reason Onset Date Comments Appointment Notification 11/05/2023 Encounter Details Date Type Department Care Team (Late st Contact Info) Description 11/05/2023 Telephone [facility] [address] [place] [address] Janell Beauchamp MD [address] [place] [address] Appointment Notification Social History Tobacco [...] on file Legal Sex Female 3:34 PM BOROUGH COORDINATOR Gender Identity Not on file Sexual Orientation Not on file documented as of this encounter Miscellaneous Notes * Telephone Encounter - Patrica Barney - 11/05/2023 12:07 PM CDT Janell (Provider) MESSAGE Pt needs to cancel appt on 11/07 and would like to resched. For 11/25 as she has other appts in town that day. Please call pt to reschedule. [facility] Correctional Case Records Supervisor: Patrica Barney documented in this encounter Plan of Treatment Upcoming Encounters Date Type Department Care Team (Late st Contact Info) Description 05/19/2025 9:30 AM BOROUGH COORDINATOR Office [facility] [address] [address] Abel Menon DO [address] [phone] documented as of this encounter Visit Diagnoses Not on filedocumented in this encounter Additional Health Concerns Infection Onset Date Last Indicated Resolved Time R/O C. diff 07/06/2024 07/06/2024 07/06/2024 8:35 AM BOROUGH COORDINATOR documented as of this encounter Care Teams Latin Dancer Relationship Specialty Start Date End Date Shravan Jones DO [address] [place] [phone] PCP - General Family Practice 12/04/16 documented as of this encounter
--- OUTSIDE RECORDS SUMMARY | 2025-04-08 22:51 | XMS_ITS | Encounter Summary ---
Author Organization [facility] Address [address] [place] [address] Care Team Providers Care Steam Tunnel Feeder Name Role Phone Shravan Jones DO Primary Care Provider [phone] Encounter Details Date Type Department Care Team (Late st Contact Info) Description 01/07/2017 Lab Requisition [facility] Laboratory Services [address] [place] [address] Izabela Diamond MD NO ADDRESS ON FILE Social History Tobacco Use Types Packs/Day Years Used Date Smoking Tobacco: Every Day Cigarettes Comments:pt lethargic Comments Unknown Sex and Gender Information Value Date Recorded Sex Assigned at Not on file 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 Gender Identity Not on file Sexual [...] - 40 mg/dL 01/07/2017 5:27 AM CDT [facility] Blood 01/07/2017 2:23 AM CDT 01/07/2017 5:01 AM CDT Izabela Diamond MD CHEMISTRY ORDERABLES Final Res ult Performing Organization Address City/[facility]/ZIP Co de Phone Number [facility] CLIA# [id number] [address] [place] [address] * (ABNORMAL) C-REACTIVE PROTEIN (01/07/2017 2:23 AM CDT) CRP 16.6(H) 0.0 - 2.9 mg/L 01/07/2017 5:27 AM CDT [facility] Blood 01/07/2017 2:23 AM CDT 01/07/2017 5:01 AM CDT Izabela Diamond MD CHEMISTRY ORDERABLES Final Res ult Performing Organization Address [facility] Co de Phone Number [facility] CLIA# [id number] [address] [place] [address] * (ABNORMAL) BASIC METABOLIC PANEL (01/07/2017 2:23 AM CDT) SODIUM 139 136 - 145 mmol/L 01/07/2017 5:27 AM CDT [facility] [employer] [facility] POTASSIUM 4.1 3.5 - 5.1 mmol/L 01/07/2017 5:27 AM CDT [facility] [employer] [facility] CHLORIDE 104 98 - 107 mmol/L 01/07/2017 5:27 AM CDT [facility] [employer] [facility] CO2 26 21 - 32 mmol/L 01/07/2017 5:27 AM CDT [facility] [employer] [facility] CALCIUM 9.1 8.4 - 10.1 mg/dL 01/07/2017 5:27 AM CDT [facility] [employer] [facility] BUN 14 7 - 17 mg/dL 01/07/2017 5:27 AM CDT [facility] CREATININE 0.82 0.55 - 1.02 mg/dL 01/07/2017 5:27 AM T [facility] GLUCOSE 274(H) 74 - 106 mg/dL 01/07/2017 5:27 AM T [facility] GFR >60 >=60 mL/min/1.7 3 sq meter 01/07/2017 5:27 AM T [facility] [...] 3 sq meter 01/07/2017 5:27 AM T [facility] ANION GAP 9 4 - 30 mmol/L 01/07/2017 5:27 AM [facility] Blood 01/07/2017 2:23 AM CDT 01/07/2017 5:01 AM CDT us Izabela Diamond MD CHEMISTRY ORDERABLES Final Res ult [facility] CLIA# [id number] [address] [place] [address] * (ABNORMAL) CBC WITH DIFFERENTIAL (01/07/2017 2:23 AM CDT) WBC 9.3 4.5 - 11.0 K/uL 01/07/2017 5:27 AM CDT [facility] RBC 4.19(L) 4.20 - 5.40 M/uL 01/07/2017 5:27 AM CDT [facility] HEMOGLOBIN 10.3(L) 12.0 - 16.0 g/dL 01/07/2017 5:27 AM [facility] HEMATOCRIT 33.2(L) 36.0 - 46.0 % 01/07/2017 5:27 AM [facility] MCV 79.2(L) 84.0 - 103.0 fL 01/07/2017 5:27 AM [facility] MCH 24.6(L) 27.0 - 34.0 pg 01/07/2017 5:27 AM [facility] MCHC 31.0 30.0 - 35.0 g/dL 01/07/2017 5:27 AM [facility] RDW 17.2(H) 11.0 - 14.5 % 01/07/2017 5:27 AM [facility] RDW-STDEV 49.4 37.0 - 54.0 fL 01/07/2017 5:27 AM [facility] PLATELETS 545(H) 140 - 440 K/uL 01/07/2017 5:27 AM [facility] MPV 10.2 8.9 - 12.8 fL 01/07/2017 5:27 AM [facility] NEUTROPHILS 53 42 - 75 % 01/07/2017 5:27 AM [facility] LYMPHOCYTES 26 24 - 44 % 01/07/2017 5:27 AM [facility] MONOCYTES 9 2 - 10 % 01/07/2017 5:27 AM [facility] EOSINOPHILS 11(H) 0 - 7 % 01/07/2017 5:27 AM [facility] BASOPHILS 1 0 - 1 % 01/07/2017 5:27 AM [facility] IMMATURE GRANULOCYTES 0 0 - 2 % 01/07/2017 5:27 AM [facility] NEUTROPHIL ABSOLUTE 4.88 2.00 - 8.00 K/uL 01/07/2017 5:27 AM [facility] LYMPHOCYTE ABSOLUTE 2.45 1.20 - 4.00 K/uL 01/07/2017 5:27 AM [facility] MONOCYTE ABSOLUTE 0.79(H) 0.10 - 0.60 K/uL 01/07/2017 5:27 AM CDT [facility] EOSINOPHIL ABSOLUTE 1.01(H) 0.00 - 0.70 K/uL 01/07/2017 5:27 AM CDT [facility] BASOPHILS ABSOLUTE 0.11 0.00 - 0.20 K/uL 01/07/2017 5:27 AM CDT [facility] IMMATURE GRANULOCYTES ABSOLUTE 0.04 0.00 - 0.10 K/uL 01/07/2017 5:27 AM CDT [facility] Blood 01/07/2017 2:23 AM CDT 01/07/2017 5:01 AM CDT us Izabela Diamond MD HEMATOLOGY ORDERABLES Final Re sult [facility] CLIA# [id number] [address] [place] [address] documented in this encounter Visit Diagnoses Not on filedocumented in this encounter Care Teams Steam Tunnel Feeder Relationship Specialty Start Date End Date Shravan Jones DO [address] [phone] PCP - General Family Practice 12/04/16 documented as of this encounter
--- OUTSIDE RECORDS SUMMARY | 2025-04-08 22:51 | XMS_ITS | Encounter Summary ---
Author Organization [facility] Address [address] [place] [address] Care Team Providers Care Pigment Grinder Name Role Phone Shravan Jones DO Primary Care Provider Encounter Details Date Type Department Care Team (Late st Contact Info) Description 01/07/2017 Lab Requisition [facility] [address] [place] [address] David Ortega MD [address] [place] [address] Social History Tobacco Use Types Packs/Day Years Used Date Smoking Tobacco: Every Day Cigarettes Comments:pt lethargic Comments Unknown Sex and Gender Information Value Date Recorded Sex Assigned at Not on file 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 [employer] [facility] Stool STOOL SPECIMEN / Unknown 01/07/2017 1:54 PM CDT 01/07/2017 6:53 PM CDT Narrative [facility] [employer] [facility] - 01/07/2017 8:08 PM [...] MICROBIOLOGY - GENERAL ORDERAB LES Final Result [facility] [employer] [facility] CLIA# [id number] [address] [place] [address] documented in this encounter Visit Diagnoses Not on filedocumented in this encounter Care Teams Pigment Grinder Relationship Specialty Start Date End Date Shravan Jones DO [address] [phone] PCP - General Family Practice 12/04/16 documented as of this encounter
--- OUTSIDE RECORDS SUMMARY | 2025-04-08 22:51 | XMS_ITS | Encounter Summary ---
Author Organization [facility] Address [address] [place] [address] Care Team Providers Care Retail Merchandiser Technician Name Role Phone Shravan Jones DO Primary Care Provider Encounter Details Date Type Department Care Team (Late st Contact Info) Description 12/28/2016 Lab Requisition [facility] Laboratory Services [address] [place] [address] David Ortega MD [address] [place] [address] Social History Tobacco Use Types Packs/Day Years Used Date Smoking Tobacco: Every Day Cigarettes Comments:pt lethargic Comments Unknown Sex and Gender Information Value Date Recorded Sex Assigned at Not on file Legal Sex 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 Gender Identity Not on file [...] * PHOSPHORUS (12/28/2016 2:39 AM CDT) Pathologist [facility] PHOSPHORUS 3.4 2.5 - 4.9 mg/dL 12/28/2016 5:42 AM CDT [facility] Blood Collection / Unknown 12/28/2016 2:39 AM CDT 12/28/2016 5:01 AM CDT David Ortega MD CHEMISTRY ORDERABLES Final Res ult Performing Organization Address [facility] Co de Phone Number [facility] CLIA# [id number] [address] [place] [phone] * MAGNESIUM LEVEL (12/28/2016 2:39 AM CDT) [facility] MAGNESIUM 1.6 1.6 - 2.6 mg/dL 12/28/2016 5:42 AM CDT [facility] Blood Collection / Unknown 12/28/2016 2:39 AM CDT 12/28/2016 5:01 AM CDT Narrative [facility] - 12/28/2016 5:42 AM CDT Due to Photocopying Equipment Mechanic update, MG+ reference range has changed from 1.8 - 2.4 mg/dL to the new reference range of 1.6 - 2.6 mg/dL. This will have limited patient impact. David Ortega MD CHEMISTRY ORDERABLES Final Res ult Performing Organization Address [facility] Co de Phone Number [facility] CLIA# [id number] [address] [place] [address] * PROTIME-INR (12/28/2016 2:39 AM CDT) [facility] PROTIME 15.0 12.3 - 15.5 Seconds 12/28/2016 5:16 AM CDT [facility] INR 1.1 0.8 - 1.2 12/28/2016 5:16 AM CDT [facility] Blood Collection / Unknown 12/28/2016 2:39 AM CDT 12/28/2016 5:01 AM CDT [place] [facility] - 12/28/2016 5:16 AM CDT Expected Values for INR: DVT/PE Goal INR 2.5; range 2.0 - 3.0 Valve Replacement Tissue Goal INR 2.5; range 2.0 - 3.0 Valve Replacement Mechanical Goal INR 3.0; range 2.5 - 3.5 POST-AR Goal INR 2.5; range 2.0 - 3.0 or Goal INR 3.0; range 2.5 - 3.5 Atrial Fibrillation Goal INR 2.5; range 2.0 - 3.0 Ischemic Stroke Goal INR 2.5; range 2.0 - 3.0 For additional information see Guidelines for Anticoagulation available from the pharmacy Wendy Vargas Pharm D. David Ortega MD HEMATOLOGY ORDERABLES Final Re sult [facility] CLIA# [id number] [address] [place] [address] * (ABNORMAL) PTT (12/28/2016 2:39 AM CDT) PTT 39.1(H) 24.8 - 38.8 seconds 12/28/2016 5:16 AM CDT [facility] Blood Collection / Unknown 12/28/2016 2:39 AM CDT 12/28/2016 5:01 AM CDT [place] [facility] - 12/28/2016 5:16 AM CDT Therapeutic Range: Hi-level PE/DVT heparin protocol 80.1 - 95.0 sec Lo-level PE/DVT heparin protocol 70.1 - 85.0 sec Cardiac Heparin Protocol 70.1 - 100.0 sec David Ortega MD HEMATOLOGY ORDERABLES Final Re sult [facility] CLIA# [id number] [facility] [place] [address] * (ABNORMAL) CBC WITH DIFFERENTIAL (12/28/2016 2:39 AM CDT) Pathologist [facility] WBC 11.0 4.5 - 11.0 K/uL 12/28/2016 5:09 AM CDT [facility] RBC 3.80(L) 4.20 - 5.40 M/uL 12/28/2016 5:09 AM CDT [facility] HEMOGLOBIN 9.3(L) 12.0 - 16.0 g/dL 12/28/2016 5:09 [facility] 30.6(L) 36.0 - 46.0 % 12/28/2016 5:09 AM CDT [facility] MCV 80.5(L) 84.0 - 103.0 fL 12/28/2016 5:09 AM CDT [facility] MCH 24.5(L) 27.0 - 34.0 pg 12/28/2016 5:09 AM CDT [facility] MCHC 30.4 30.0 - 35.0 g/dL 12/28/2016 5:09 AM CDT [facility] RDW 17.3(H) 11.0 - 14.5 % 12/28/2016 5:09 AM T [facility] RDW-STDEV 51.8 37.0 - 54.0 fL 12/28/2016 5:09 AM CDT [facility] PLATELETS 757(H) 140 - 440 K/uL 12/28/2016 5:09 AM CDT [facility] MPV 8.9 8.9 - 12.8 fL 12/28/2016 5:09 AM CDT [facility] NEUTROPHILS 65 42 - 75 % 12/28/2016 5:09 AM CDT [facility] LYMPHOCYTES 19(L) 24 - 44 % 12/28/2016 5:09 AM CDT [facility] MONOCYTES 10 2 - 10 % 12/28/2016 5:09 AM CDT [facility] EOSINOPHILS 5 0 - 7 % 12/28/2016 5:09 AM CDT [facility] BASOPHILS 1 0 - 1 % 12/28/2016 5:09 AM CDT [facility] IMMATURE GRANULOCYTES 1 0 - 2 % 12/28/2016 5:09 AM CDT [facility] NEUTROPHIL ABSOLUTE 7.19 2.00 - 8.00 K/uL 12/28/2016 5:09 AM CDT [facility] LYMPHOCYTE ABSOLUTE 2.04 1.20 - 4.00 K/uL 12/28/2016 5:09 AM CDT [facility] MONOCYTE ABSOLUTE 1.06(H) 0.10 - 0.60 K/uL 12/28/2016 5:09 AM CDT [facility] EOSINOPHIL ABSOLUTE 0.60 0.00 - 0.70 K/uL 12/28/2016 5:09 AM CDT [facility] BASOPHILS ABSOLUTE 0.07 0.00 - 0.20 K/uL 12/28/2016 5:09 AM CDT [facility] IMMATURE GRANULOCYTES ABSOLUTE 0.07 0.00 - 0.10 K/uL 12/28/2016 5:09 AM T [facility] Blood Collection / Unknown 12/28/2016 2:39 AM CDT 12/28/2016 5:01 AM CDT us David Ortega MD HEMATOLOGY ORDERABLES Final Re sult [facility] CLIA# [id number] [address] [place] [address] * (ABNORMAL) COMPREHENSIVE METABOLIC PANEL (12/28/2016 2:39 AM CDT) SODIUM 143 136 - 145 mmol/L 12/28/2016 5:47 AM CDT [facility] POTASSIUM 3.3(L) 3.5 - 5.1 mmol/L 12/28/2016 5:47 AM [facility] CHLORIDE 103 98 - 107 mmol/L 12/28/2016 5:47 AM [facility] CO2 29 21 - 32 mmol/L 12/28/2016 5:47 AM [facility] CALCIUM 8.9 8.4 - 10.1 mg/dL 12/28/2016 5:47 AM [facility] BUN 13 7 - 17 mg/dL 12/28/2016 5:47 AM [facility] CREATININE 0.70 0.55 - 1.02 mg/dL 12/28/2016 5:47 AM [facility] GLUCOSE 46(LL) 74 - 106 mg/dL 12/28/2016 5:47 AM [facility] TOTAL PROTEIN 8.2 6.4 - 8.2 g/dL 12/28/2016 5:47 AM [facility] ALBUMIN 1.8(L) 3.4 - 5.0 g/dL 12/28/2016 5:47 AM [facility] BILIRUBIN TOTAL 0.2 0.2 - 1.0 mg/dL 12/28/2016 5:47 AM [facility] ALKALINE PHOSPHATASE 93 25 - 100 U/L 12/28/2016 5:47 AM [facility] AST 18 15 - 37 U/L 12/28/2016 5:47 AM [facility] ALT 18 13 - 61 U/L 12/28/2016 5:47 AM [facility] GFR >60 >=60 mL/min/1.7 3 sq meter 12/28/2016 5:47 AM [facility] Comment: eGFR has not been validated [...] 3 sq meter 12/28/2016 5:47 AM CDT [facility] ANION GAP 11 4 - 30 mmol/L 12/28/2016 5:47 AM CDT [facility] Blood Collection / Unknown 12/28/2016 2:39 AM CDT 12/28/2016 5:01 AM CDT us David Ortega MD CHEMISTRY ORDERABLES Final Res ult [facility] CLIA# [id number] [place] [address] documented in this encounter Visit Diagnoses Not on filedocumented in this encounter Care Teams Retail Merchandiser Technician Relationship Specialty Start Date End Date Shravan Jones DO [address] [id number] PCP - General Family Practice 12/04/16 documented as of this encounter
[2025-04-09] VITALS (8 sets, daily range): BP systolic 114–178; BP diastolic 58–94; PULSE 71–75; RESP 10–20; TEMP 36.3–36.9; O2SAT 94–99; BMI 27.8
[2025-04-09 03:30] LABS: Hematocrit 31.4 % (36-47); Hemoglobin 9.90 g/dL (11.27-16.99); Mean Corpuscular HGB Conc 31.5 g/dL (30-55); Mean Corpuscular Hemoglobin 30.1 pg (27-33); Mean Corpuscular Volume 95.4 fl (85-98); Nucleated Red Blood Cells % 0 %; Platelet Count 153 10^3/cmm (157-399); Red Blood Count 3.29 10^6/uL (3.85-5.65); White Blood Count 5.66 10^3/uL (3.29-11.43)
[2025-04-09 04:00] LABS: Alanine Aminotransferase 15 U/L (0-33); Albumin Level 3.9 g/dL (3.5-5.2); Alkaline Phosphatase 176 U/L (35-105); Anion Gap 15.8 (5-19); Aspartate Amino Transferase 16 U/L (0-32); Blood Urea Nitrogen 21 mg/dL (6-20); Calcium 9.0 mg/dL (8.5-10.5); Carbon Dioxide 29 mmol/L (22-29); Chloride 96 mmol/L (98-107); Creatinine Clr Calc Pharmacy 15.9612; Globulin 3.5 g/dL (1.3-4.6); Glucose 186 mg/dL (65-115); Osmolality Calculated 290 mOsm/kg (285-295); Potassium 4.8 mmol/L (3.5-5.1); Sodium 136 mmol/L (136-145); Total Protein 7.4 g/dL (6.6-8.7)
[2025-04-09] MEDS: heparin 5,000 unit/mL INJ 1 mL 5000 UNIT SUBCUT ×2 (04:30→14:41)
[2025-04-09] MEDS: alum-mag-hydroxide-sime 30 mL UDC 15 ML PO ×3 (04:30→14:41)
[2025-04-09] MEDS: pantoprazole 40 mg SDV IVP (04:30)
[2025-04-09] MEDS: morphine 4 mg/mL SDV 1 mL 2 MG IVP ×3 (06:04→18:43)
[2025-04-09] MEDS: hyDRALAzine 20 mg/mL INJ 1 mL 5 MG IVP (10:07)
--- NOTE | 2025-04-09 15:39 | P.DS_ITS ---
Discharge Providers Date of Admission: 04/08/25 03:19 Date of Discharge: April 09, 2025 Attending Provider at Admission: Rex Lamas MD Attending Provider at Discharge: Barbara Guevara MD Primary Care Provider: SUZANNE Dias Diagnoses at Discharge Discharge Diagnosis 1. ESRD (end stage renal disease): Reason for Visit Reason for Visit: Chest pain, sob Brief History: 39 year old female with T1DM, ESRD on di alysis, CAD with h/o stenting who had a dobutamine stress test 02/26/25 for chest pain that was negative for inducible ischemia and showed globally normal LV systolic function. She presented to the ER with chest pain. serial EKGs have been done, no change number operator prior. Her troponins have been at her baseline, chronically elevated due to ESRD. no significant delta troponin. Last [facility] earlier this year, 09/2024, with patent stent and no obstructive lesions. She was evaluated by cardiology. Possibilities include musculoskeletal pain, however patient has been advised not to take NSAIDs per her outpatient senior salesforce developer. Alternate possibility of chronic stable angina for which ranolazine has been added at discharge and recommended to increase dose of imdur to 60mg daily on non dialysis days. f/up arranged with cardiology as outpatient Physical Exam Narrative: General: No acute distress, AO x3 HEENT: PERRLA, pupils bilaterally equal and reactive, pallors not present Chest: Normal vesicular breath sounds, no added sounds, equal good air entry bilaterally CVS: S1-S2 regular, no murmurs, no tachycardia, no gallops, no rubs Abdomen: Soft, nontender, no organomegaly, bowel sounds present Neuro: No focal deficits, no facial deformity, AO x3, power 5/5 in all limbs Discharge Data Studies Completed and Pending Completed Studies During Hospitalization Category Date Time Status XR chest 1V portable [id number] Stat Exams 04/07/25 23:01 Completed Radiology Impressions Chest X-Ray 04/07/25 23:01 IMPRESSION: No acute findings. Laboratory Results WBC 5.66 10^3/uL (3.29-11.43) 04/09/25 03:23 Corrected WBC Cancelled 04/08/25 00:45 RBC 3.29 10^6/uL (3.85-5.65) L 04/09/25 03:23 Hgb 9.90 g/dL (11.27-16.99) L 04/09/25 03:23 Hct 31.4 % (36-47) L 04/09/25 03:23 MCV 95.4 fl (85-98) 04/09/25 03:23 MCH 30.1 pg (27-33) 04/09/25 03:23 MCHC 31.5 g/dL (30-55) 04/09/25 03:23 RDW 13.0 % (12.1-15.1) 04/09/25 03:23 Plt Count 153 10^3/cmm (157-399) L 04/09/25 03:23 MPV 9.9 fL (7.4-10.4) 04/09/25 03:23 Gran % Cancelled 04/08/25 00:45 Neut % (Auto) 62.0 % 04/09/25 03:23 Lymph % (Auto) 24.7 % 04/09/25 03:23 [place] % (Auto) 7.1 % 04/09/25 03:23 Eos % (Auto) 4.9 % 04/09/25 03:23 Baso % (Auto) 1.1 % 04/09/25 03:23 Neut # (Auto) 3.51 10^3/uL (1.8-7.7) 04/09/25 03:23 Lymph # (Auto) 1.4 10^3/uL (0.8-4.8) 04/09/25 03:23 Huntington # (Auto) 0.4 10^3/uL (0.2-0.9) 04/09/25 03:23 Eos # (Auto) 0.3 10^3/uL (0.0-0.8) 04/09/25 03:23 Baso # (Auto) 0.1 10^3/uL (0.0-0.1) 04/09/25 03:23 Absolute Gran (auto) Cancelled 04/08/25 00:45 Nucleated RBC % (auto) 0 % 04/09/25 03:23 Nucleated RBCs # 0.0 /100WBC 04/09/25 03:23 D-Dimer 1.04 ug/mLFEU (0-0.59) H 04/08/25 15:38 Sodium 136 mmol/L (136-145) 04/09/25 03:23 Potassium 4.8 mmol/L (3.5-5.1) 04/09/25 03:23 Chloride 96 mmol/L (98-107) L 04/09/25 03:23 Carbon Dioxide 29 mmol/L (22-29) 04/09/25 03:23 Anion Gap 15.8 (5-19) 04/09/25 03:23 BUN 21 mg/dL (6-20) H 04/09/25 03:23 Creatinine 4.0 mg/dL (0.5-0.9) H 04/09/25 03:23 GFR Calculation 12.5 mL/min (90-130) L 04/09/25 03:23 Glucose 186 mg/dL (65-115) H 04/09/25 03:23 POC Glucose 107 mg/dL (70-110) 04/09/25 11:11 Calculated Osmolality 290 mOsm/kg (285-295) 04/09/25 03:23 Calcium 9.0 mg/dL (8.5-10.5) 04/09/25 03:23 Total Bilirubin 0.3 mg/dL (0.15-1.2) 04/09/25 03:23 AST 16 U/L (0-32) 04/09/25 03:23 ALT 15 U/L (0-33) 04/09/25 03:23 Alkaline Phosphatase 176 U/L (35-105) H 04/09/25 03:23 Troponin T Baseline 210 ng/L (0-10) H* 04/08/25 00:45 Troponin T 120 Minute 196.4 ng/L (0-10) H 04/08/25 02:44 Delta Troponin T -13.6 ABS# (0-10) L 04/08/25 02:44 Troponin T Hi Sens 6Hr 214.9 ng/L (0-10) H 04/08/25 06:35 Troponin T Hi Sens 6Hr Delta 4.9 ng/L (0-12) 04/08/25 06:35 NT-Pro-B Natriuret Pep 46794 pg/mL (0-125) H 04/08/25 00:45 Total Protein 7.4 g/dL (6.6-8.7) 04/09/25 03:23 Albumin 3.9 g/dL (3.5-5.2) 04/09/25 03:23 Globulin 3.5 g/dL (1.3-4.6) 04/09/25 03:23 Vitals Last Vital Signs Temp 97.9 F 04/09/25 11:52 Pulse 75 04/09/25 11:52 Resp 18 04/09/25 11:52 BP 138/78 04/09/25 11:52 Pulse Ox 99 04/09/25 11:52 O2 Del Method Room Air 04/09/25 11:52 O2 Flow Rate 2.5 04/07/25 19:16 Discharge Plan Discharge Patient Disposition: Home Condition: Stable Prescriptions: New ranolazine 500 mg tablet extended release 12 hr 500 mg PO BID Qty: 60 0RF Continued ([facility] [place]) AFO brace See Rx Instructions .Route .MEDSUPPLY Qty: 1 0RF Rx Instructions: As directed to the shoe guys ([facility] [place]) diabetic shoes with 3 inserts See Rx Instructions .Route .MEDSUPPLY Qty: 1 0RF Rx Instructions: As directed to the shoe guys ([facility] [place]) Dexcom G6 Metal Tank Builder Misc See Rx Instructions .Route Qty: 1 0RF Rx Instructions: As directed ([facility] [place]) Dexcom G6 Sensor Device See Rx Instructions .Route Qty: 3 0RF Rx Instructions: As directed ([facility] [place]) Dexcom G6 Transmitter Device See Rx Instructions .Route Qty: 1 0RF Rx Instructions: As directed atorvastatin 40 mg tablet 40 mg PO BEDTIME 30 Days Qty: 30 0RF aspirin 81 mg tablet,delayed release (DR/EC) 81 mg PO QAM 30 Days Qty: 30 0RF amlodipine 5 mg Tablet 5 mg PO DAILY Qty: 30 0RF sevelamer carbonate 800 mg Tablet 800 mg PO TID Qty: 90 0RF gabapentin 100 mg Capsule 100 mg PO TID clopidogrel 75 mg tablet 75 mg PO DAILY insulin aspart U-100 [Novolog FlexPen U-100 Insulin] 100 unit/mL (3 mL) insulin pen See Rx Instructions .ROUTE .COMPLEX Qty: 15 0RF Rx Instructions: Inject 3 times daily, subcut, after meals, based on low-dose sliding scale. tizanidine 4 mg tablet 4 mg PO Q6H PRN (Reason: Muscle Spasm) hydralazine 25 mg tablet 12.5 mg PO BID folic acid 1 mg tablet 1 mg PO DAILY escitalopram oxalate 20 mg tablet 20 mg PO DAILY nitroglycerin 0.4 mg tablet, sublingual See Rx Instructions .ROUTE .COMPLEX Rx Instructions: DISSOLVE ONE TABLET UNDER THE TONGUE EVERY 5 MINUTES NEEDED FOR CHEST P AIN. DO NOT EXCEED A TOTAL OF 3 DOSES IN 15 MINUTES. isosorbide mononitrate 30 mg tablet extended release 24 hr 30 mg PO DAILY Qty: 30 0RF Discharge Order = DC NOW: Discharge Order (Routine); Ordered 04/09/25 Ordered By: Barbara Guevara Referrals: [facility] - [Outside] Referral Note: Continue schedule as usual Elizabeth Dougherty FNP [Primary Care Provider, Unknown] - 04/14/25 10:20 am Vance Valdez MD [Physician, Cardiology] - 05/07/25 11:00 am Patient Instructions: Ranolazine (By mouth), Opioid Safety, Patient Portal & Flaca Instructions Activity Restrictions/Additional Instructions: take imdur 60mg on non dialysis days and 30mg on dialysis days Discharge Attestations Time Spent in Discharge Care*: greater than 30 min Status at Discharge: Cognitive status at discharge: cognitively intact , Behavioral status at discharge: cooperative and independent in ADL's , Quality Metrics Clinical Quality Measures [ No reported AMI, CVA or VTE this stay] Coding Level of Care Code Acute Code for [facility] Fwd Diagnoses ESRD (end stage renal disease) N18.6
--- NOTE | 2025-04-09 15:41 | PM.CONSULT ---
Providers/Reason For Consult Consulting Physician/Specialty*: Vance Valdez MD Reason for Consult*: Chest pain Requesting Physician: Barbara Guevara MD Attending Physician: Barbara Guevara MD Primary Care Provider: SUZANNE Dias History of Present Illness History of Present Illness Donita Aguilar is a 39 year old female with T1DM, ESRD on dialysis, CAD with h/o stenting who had a dobutamine stress test 02/26/25 for chest pain that was negative for inducible ischemia and showed globally normal LV systolic function. She present to the ER yesterday with chest pain. 4 serial EKGs have been done, each of which I have personally reviewed and show no significant change from prior ECGs. Her troponins have been at her baseline, chronically elevated due to ESRD. Last C earlier this year, 09/2024, with patent stent and no obstructive lesions. Medications/Allergies Home Medications ?Medication ?Instructions ?Recorded ?Confirmed ?Last Taken ?Type blood-glucose sensor (Dexcom G6 #3 ea 06/12/22 04/08/25 Unknown Rx Sensor device) blood-glucose transmitter (Dexcom #1 ea 06/12/22 04/08/25 Unknown Rx G6 Transmitter device) blood-glucose,recreational counselor,cont #1 ea 06/12/22 04/08/25 Unknown Rx (Dexcom G6 Cyber Legal Advisor) sevelamer carbonate 800 mg tablet 800 mg PO TID #90 tabs 09/16/23 04/08/25 04/07/25 14:00 Rx gabapentin 100 mg capsule 100 mg PO TID 12/27/23 04/08/25 04/07/25 13:00 History aspirin 81 mg tablet,delayed 81 mg PO QAM 30 days #30 tabs 03/28/24 04/08/25 04/07/25 08:00 Rx release atorvastatin 40 mg tablet 40 mg PO BEDTIME 30 days #30 tabs 03/28/24 04/08/25 04/06/25 19:00 Rx AFO brace #1 ea 04/20/24 04/08/25 Unknown Rx diabetic shoes with 3 inserts #1 ea 04/20/24 04/08/25 Unknown Rx clopidogrel 75 mg tablet 75 mg PO DAILY 04/28/24 04/08/25 04/07/25 History amlodipine 5 mg tablet 5 mg PO DAILY #30 tabs 0404/08/25 04/07/25 08:00 Rx insulin aspart U-100 100 unit/mL See Rx Instructions .Route 12/28/24 04/08/25 02/21/25 Rx (3 mL) subcutaneous pen (Novolog .COMPLEX #15 mL FlexPen U-100 Insulin aspart) escitalopram oxalate 20 mg tablet 20 mg PO DAILY anxiety 02/14/25 04/08/25 04/07/25 History folic acid 1 mg tablet 1 mg PO DAILY 02/14/25 04/08/25 04/07/25 History hydralazine 25 mg tablet 12.5 mg PO BID 02/14/25 04/08/25 04/07/25 09:00 History tizanidine 4 mg tablet 4 mg PO Q6H PRN Muscle Spasm 02/14/25 04/08/25 Unknown History nitroglycerin 0.4 mg sublingual See Rx Instructions .Route .COMPLEX 02/22/25 04/08/25 Unknown History tablet isosorbide mononitrate 30 mg 30 mg PO DAILY #30 tabs 02/26/25 04/08/25 04/07/25 Rx tablet,extended release 24 hr Allergies Allergy/AdvReac Type Severity Reaction Status Date / Time acetaminophen AdvReac Mild ADR-Gastrointestinal Verified 04/07/25 19:26 Upset Current Medications Generic Name Dose Route Start Last Admin Trade Name Freq PRN Reason Stop Dose Admin Al Hydrox/Mg Hydrox/Simethicone 15 ml 04/08/25 03:30 04/09/25 14:41 Uxjv-Nkt-Hfhtsmsef-Rubén 30 Ml Udc PO 15 ml Q6H SHAY Administration Diphenhydramine HCl 50 mg 04/08/25 14:36 04/08/25 15:22 Diphenhydramine 50 Mg/Ml Sdv 1ml IVP 50 mg ONCE PRN Administration ITCHING Heparin Sodium (Porcine) 5,000 unit 04/08/25 03:30 04/09/25 14:41 Heparin 5,000 Unit/Ml Inj 1 Ml SUBCUT 5,000 unit Q12H SHAY Administration Albumin Human 12.5 gm in 50 mls @ 60 mls/hr 04/08/25 10:45 04/08/25 19:13 Albumin IV Infused PRN PRN Infusion Hypotension and/or symptomatic Insulin Human Lispro 0 unit 04/08/25 08:00 04/09/25 12:20 Insulin Lispro 100 Unit/1 Ml SUBCUT Not Given WM&BEDTIME SHAY Protocol Isosorbide Mononitrate 30 mg 04/09/25 09:45 04/09/25 10:08 Isosorbide Mononitrate Er 30 Mg Tablet PO 30 mg DAILY SHAY Administration Morphine Sulfate 2 mg 04/08/25 03:19 04/09/25 14:41 Morphine 4 Mg/Ml Sdv 1 Ml IVP 2 mg Q4H PRN Administration SEVERE PAIN Pantoprazole Sodium 40 mg 04/08/25 03:30 04/09/25 04:30 Pantoprazole 40 Mg Sdv IVP 40 mg Q24H SHAY Administration Senna 17.2 mg 04/08/25 21:00 04/08/25 20:38 Sennosides 8.6 Mg Tablet PO Not Given BEDTIME SHAY PFSH Acute PFSH: Medical History (Updated 04/08/25 @ 03:38 by Tara Varma MD) Chest pain Diabetes mellitus HTN (hypertension) HTN (hypertension), benign Hyperkalemia Headache Accelerated hypertension Uncontrolled type 1 diabetes mellitus ESRD (end stage renal disease) Dialysis complication Hypoglycemia Hemodialysis catheter dysfunction Colitis End stage renal disease on dialysis COPD (chronic obstructive pulmonary disease) Transaminitis Intractable nausea and vomiting Hyperlipidemia CHF (congestive heart failure), NYHA class III Pulmonary hypertension CAD (coronary artery disease) Neurogenic bladder COVID-19 Tobacco dependence Drug abuse Anemia Community acquired pneumonia Esophagitis Long-term insulin use History of pancreatitis Celiac disease Recurrent UTI Non-alcoholic fatty liver disease Arnold-Chiari malformation Diabetic gastroparesis -continue Reglan Diabetic neuropathy associated with type 1 diabetes mellitus Headache, common migraine, intractable, with status migrainosus Pleural effusion 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 Ureterolithiasis Pyelonephritis PID (pelvic inflammatory disease) Anxiety Respiratory failure DKA (diabetic ketoacidoses) Migraine headache Surgical History (Updated 04/09/25 @ 15:49 by Vance Valdez MD) History of coronary artery stent placement x 6 History of toe surgery Amputation of right second toe. History of lung surgery -s/p LLL lobectomy secondary to cavitary pneumonia (2017) History of endoscopy History of cholecystectomy Family History Grandfather Diabetes Mother CAD (coronary artery disease) Diabetes Heart disease Hypertension Brother Acute lymphoblastic leukemia (ALL) in child Grandmother Thyroid disease Denies family history of Colon cancer Ovarian cancer Prostate cancer Hyperlipidemia Breast cancer Uterine cancer Stroke Social History Smoking and tobacco/nicotine status: former use of tobacco/nicotine Quit status (tobacco/nicotine): has quit using Former quit date comment: She previously smoked <1/2 PPD, quit July 2023. Second hand smoke exposure: Yes Alcohol intake: never Substance/Drug Use: current Household members: children Housing: House Marital status: Single Current occupational status: unemployed Female Reproductive History: Spontaneous abortions: No Vitals/I&O/Wt Last Vital Signs Temp 97.9 F 04/09/25 11:52 Pulse 75 04/09/25 11:52 Resp 18 04/09/25 11:52 BP 138/78 04/09/25 11:52 Pulse Ox 99 04/09/25 11:52 O2 Del Method Room Air 04/09/25 11:52 O2 Flow Rate 2.5 04/07/25 19:16 04/09/25 04/09/25 04/09/25 06:59 14:59 22:59 Intake Total 240 / 240 Balance 240 / 240 Weight last 48 hrs Weight 142 lb 13.753 oz Weight 141 lb 12.116 oz Weight 142 lb 6 oz Weight 142 lb 6 oz Weight 142 lb 9.6 oz Weight 142 lb Physical Exam Narrative: General: In no acute distress Neck: No jugular venous distention or carotid bruits Heart: Normal S1 and S2 with a regular rate and rhythm, no cardiac murmurs Lungs: Normal respiratory effort with no use of intercostal muscles, clear lungs sounds to auscultation Extremities: No lower extremity edema Neuro: Alert and oriented x 3 Data 04/09/25 03:23 04/09/25 03:23 A&P Assessment and plan 1. Chest pain: 2. HTN (hypertension): 3. CAD (coronary artery disease): 4. S/P coronary artery stent placement: Plan: There is no evidence of ACS. Her pain could be from microvascular disease or coronary vasospasm causing chronic stable angina versus noncardiac reasons, though she states muscle relaxants and NSAIDS did not help. Troponin is at the same level as in September 2024 when she had a LHC for chest pain that showed nonobstructive CAD. Patient is requesting LHC again despite nonobstructive disease on LHC in September 2024 for same symptoms and nonischemic Dobutamine stress test on 02/26/2025. I do not think a repeat LHC is indicated at this time but advancing antianginal regimen is to help her symptoms. Continue current medical therapy Start Ranexa 1,000mg bid Can also increase imdur to 60mg on the days she does not have dialysis. would not use increased dose of Imdur on her dialysis days since she states her BP decreases with her dialysis. Stable for discharge from cardiac stand point with fu with me or Dr. Gallegos in 2 - 4 weeks PDMP PDMP Reviewed: Not Reviewed Coding Level of Care Code 44382 Diagnoses Chest pain R07.9 HTN (hypertension) I10 CAD (coronary artery disease) I25.10 S/P coronary artery stent placement Z95.5
--- NOTE | 2025-04-09 17:35 | P.PN_ITS ---
Subjective 2 Subjective: No new complaints Medications: Reviewed: Yes Vitals/I&O/Wt Last Vital Signs Temp 98.2 F 04/09/25 16:00 Pulse 72 04/09/25 16:00 Resp 17 04/09/25 16:00 BP 138/75 04/09/25 16:00 Pulse Ox 99 04/09/25 16:00 O2 Del Method Room Air 04/09/25 16:00 O2 Flow Rate 2.5 04/07/25 19:16 04/09/25 04/09/25 04/09/25 06:59 14:59 22:59 Intake Total 240 / 240 Balance 240 / 240 Weight last 48 hrs Weight 64.8 kg Weight 64.3 kg Weight 64.58 kg Weight 64.58 kg Weight 64.682 kg Weight 64.41 kg Physical Exam 2 Narrative: Vital signs noted. Blood pressure improved. Patient sitting up in bed no apparent distress no longer using any oxygen HEENT normocephalic atraumatic. Neck supple Lungs clear bilateral. Heart positive S1-S2 positive regular. Abdomen is soft positive bowel sounds. Extremities positive left AV fistula. 1+ leg edema is improving mostly just at the ankles. Neuro awake alert oriented x 3 Data 04/09/25 03:23 04/09/25 03:23 A&P Assessment and plan 1. ESRD (end stage renal disease): 39-year-old lady history of ESRD diastolic dysfunction hypertension type 1 diabetes. 1. End-stage renal disease: Continue dialysis Saturday and Saturday. 2. Chest pain , h/o CAD , now with NSTEMI 3. Hypertension, continue current medications 4. Diabetes 5. Anemia : will order MAX Seen and examined with aid of a nurse using A/V equipment. Patient consented to telehealth time to hemodialysis Plan: See above PDMP PDMP Reviewed: Not Reviewed Attestations 2 Medical Necessity Statement*: Per medicine team Coding Level of Care Code Acute Code for [facility] Fwd Diagnoses ESRD (end stage renal disease) N18.6
--- NOTE | 2025-04-09 18:18 | PC.NURSE ---
Patient voices that she does not want to be discharged due to continued chest pain. Cardiology has cleared her. Plan for discharge due to no medical necessity of keeping her. Patient is requesting pain medication and says her ride wont be here for a long time.
== END 2025-04-09 20:28 | disposition home or self-care (01) ==
LOC: ER 04-08 03:38 → CSU 04-08 08:58
PROVIDERS: Admitting Provider Student in an Organized Health Care Education/Training Program; Emergency Provider Emergency Medicine; PCP Nurse Practitioner Family; Visit Provider Student in an Organized Health Care Education/Training Program
DX: E10.22 Type 1 diabetes mellitus with diabetic chronic kidney disease (principal); I13.2 Hypertensive heart and chronic kidney disease with heart failure and with stage 5 chronic kidney disease, or end stage renal disease; N18.6 End stage renal disease; I50.9 Heart failure, unspecified; J44.9 Chronic obstructive pulmonary disease, unspecified; E78.5 Hyperlipidemia, unspecified; I25.10 Atherosclerotic heart disease of native coronary artery without angina pectoris; E10.10 Type 1 diabetes mellitus with ketoacidosis without coma; E10.40 Type 1 diabetes mellitus with diabetic neuropathy, unspecified; Z79.4 Long term (current) use of insulin; Z79.891 Long term (current) use of opiate analgesic; Z79.82 Long term (current) use of aspirin; Z95.5 Presence of coronary angioplasty implant and graft; Z83.3 Family history of diabetes mellitus; Z82.49 Family history of ischemic heart disease and other diseases of the circulatory system; Z87.891 Personal history of nicotine dependence
CPT/HCPCS: 36415; 36416; 71045; 80053; 82962; 83880; 84484; 85025; 85378; 90935; 93005; 96372; G0378; J0360; J1200; J1644; J1815; J2270; J2405; J2470; J9999; P9047

== ENCOUNTER 2025-04-22 08:40 | Observation (INO) | payer MEDICARE, MEDICAID, SELFPAY ==
[2025-04-22] VITALS (12 sets, daily range): BP systolic 123–151; BP diastolic 77–90; PULSE 72–85; RESP 16–22; TEMP 36.7–36.8; O2SAT 97–100; BMI 27.3
--- NOTE | 2025-04-22 08:45 | ECG_ITS ---
[facility] Test Date: 2025-04-22 Pat Name: Donita Aguilar Department: Room: Gender: Female [place] Man: : 1985 Requested By: Shravan Nick Order Number: [id number] Salmeron MD: Vance Valdez M.D. Measurements Intervals Grant Rate: 85 P: 64 NH: 187 QRS: -15 QRSD: 112 T: 39 QT: 396 QTc: 472 Interpretive Statements SINUS RHYTHM POSSIBLE LEFT ATRIAL ENLARGEMENT [-0.1mV P-WAVE IN V1/V2] MODERATE INTRAVENTRICULAR CONDUCTION DELAY [110+ ms QRS DURATION] NONSPECIFIC ST & T-WAVE ABNORMALITY Compared to ECG 04/08/2025 05:07:38 T-wave abnormality now present Electronically Signed On 04-24-2025 20:40:48 CDT by Vance Valdez M.D. [email or web address]
--- NOTE | 2025-04-22 08:45 | XR_ITS ---
WS: [id number] Exam: XR chest 1V portable [id number] Date/Time of Exam: 04/22/2025 8:45 AM Reason For Exam: chest pain Comparison 04/07/2025. The lungs are fully inflated and clear. Heart size is normal. Coronary artery calcification. Signs of left-sided thoracotomy. Mediastinum is normal in contour. Bony structures are intact. XR/XR chest 1V portable [id number] IMPRESSION: 1. No acute cardiopulmonary finding.
--- NOTE | 2025-04-22 08:47 | W.ED.CHESTPA ---
HPI - Chest Pain General: Chief Complaint: Chest Pain Stated Complaint: chest pain Time Seen by Provider: 04/22/25 08:42 History of Present Illness: 39-year-old family history of coronary disease end-stage renal disease and diabetes mellitus presents emergency room with intermittent episodes of chest pain while at rest last 10 to 15 minutes at a time resolved spontaneously. Patient reports she had a stress test within the last month that she said was she was told was negative reviewing the chart it was found on 02/25/2025 and read as low probability for coronary ischemia. In September of this year she was in the [employer] but had patient had some in-stent stenosis in the LAD. + Left main 10% distal stenosis and 40% stenosis proximal and distal in the right coronary artery. Associated symptoms: Deny abdominal pain, dyspnea or fever(s) Related Data Home Medications ?Medication ?Instructions ?Recorded ?Confirmed gabapentin 100 mg capsule 100 mg PO TID 12/27/23 04/22/25 clopidogrel 75 mg tablet 75 mg PO DAILY 04/28/24 04/22/25 escitalopram oxalate 20 mg tablet 20 mg PO DAILY anxiety 02/14/25 04/22/25 folic acid 1 mg tablet 1 mg PO DAILY 02/14/25 04/22/25 hydralazine 25 mg tablet 12.5 mg PO BID 02/14/25 04/22/25 nitroglycerin 0.4 mg sublingual See Rx Instructions .Route .COMPLEX 02/22/25 04/22/25 tablet cyclobenzaprine 10 mg tablet 10 mg PO TID PRN MUSCLE SPASM 04/22/25 04/22/25 tramadol 50 mg tablet 50 mg PO DAILY 04/22/25 04/22/25 Previous Rx's ?Medication ?Instructions ?Recorded blood-glucose sensor (Dexcom G6 #3 ea 06/12/22 Sensor device) blood-glucose transmitter (Dexcom #1 ea 06/12/22 G6 Transmitter device) blood-glucose,roustabout,cont #1 ea 06/12/22 (Dexcom G6 Pressure Sealer And Tester) sevelamer carbonate 800 mg tablet 800 mg PO TID #90 tabs 09/16/23 aspirin 81 mg tablet,delayed 81 mg PO QAM 30 days #30 tabs 03/28/24 release atorvastatin 40 mg tablet 40 mg PO BEDTIME 30 days #30 tabs 03/28/24 AFO brace #1 ea 04/20/24 diabetic shoes with 3 inserts #1 ea 04/20/24 amlodipine 5 mg tablet 5 mg PO DAILY #30 tabs 09/30/24 insulin aspart U-100 100 unit/mL See Rx Instructions .Route 12/28/24 (3 mL) subcutaneous pen (Novolog .COMPLEX #15 mL FlexPen U-100 Insulin aspart) isosorbide mononitrate 30 mg 30 mg PO DAILY #30 tabs 02/26/25 tablet,extended release 24 hr ranolazine 500 mg tablet,extended 500 mg PO BID #60 tabs 04/09/25 release,12 hr Allergies Allergy/AdvReac Type Severity Reaction Status Date / Time acetaminophen AdvReac Mild ADR-Gastrointestinal Verified 04/07/25 19:26 Upset Review of Systems Const: Denies: fever(s) or chills Card: Denies: chest pain Resp: Denies: dyspnea GI: Denies: abdominal pain : Denies: dysuria, urinary frequency or urinary urgency Musc: Denies: neck pain or back pain Skin/Breast: Denies: rash PFSH ED PFSH: Medical History Chest pain Diabetes mellitus HTN (hypertension) HTN (hypertension), benign Hyperkalemia Headache Accelerated hypertension Uncontrolled type 1 diabetes mellitus ESRD (end stage renal disease) Dialysis complication Hypoglycemia Hemodialysis catheter dysfunction Colitis End stage renal disease on dialysis COPD (chronic obstructive pulmonary disease) Transaminitis Intractable nausea and vomiting Hyperlipidemia CHF (congestive heart failure), NYHA class III Pulmonary hypertension CAD (coronary artery disease) Neurogenic bladder COVID-19 Tobacco dependence Drug abuse Anemia Community acquired pneumonia Esophagitis Long-term insulin use History of pancreatitis Celiac disease Recurrent UTI Non-alcoholic fatty liver disease Arnold-Chiari malformation Diabetic gastroparesis -continue Reglan Diabetic neuropathy associated with type 1 diabetes mellitus Headache, common migraine, intractable, with status migrainosus Pleural effusion 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 History of lung surgery -s/p LLL lobectomy secondary to cavitary pneumonia (2017) History of endoscopy History of cholecystectomy Family History Grandfather Diabetes Mother CAD (coronary artery disease) Diabetes Heart disease Hypertension Brother Acute lymphoblastic leukemia (ALL) in child Grandmother Thyroid disease Denies family history of Colon cancer Ovarian cancer Prostate cancer Hyperlipidemia Breast cancer Uterine cancer Stroke Social History Smoking and tobacco/nicotine status: former use of tobacco/nicotine Quit status (tobacco/nicotine): has quit using Former quit date comment: She previously smoked <1/2 PPD, quit July 2023. Second hand smoke exposure: Yes Alcohol intake: never Substance/Drug Use: current Household members: children Housing: House Marital status: Single Current occupational status: unemployed Female Reproductive History: Spontaneous abortions: No Physical Exam Const: COMMON NORMALS: no acute distress GENERAL APPEARANCE: cooperative and comfortable ORIENTATION/CONSCIOUSNESS: Yes awake, Yes oriented to person, Yes oriented to place and Yes oriented to time HENMT: COMMON NORMALS: normocephalic, atraumatic and hearing grossly normal bilaterally HEAD & SCALP: normocephalic and atraumatic Resp: COMMON NORMALS: normal respiratory effort, No retractions, No use of accessory muscles and clear to auscultation bilaterally AUSCULTATION: clear to auscultation bilaterally Cardio: COMMON NORMALS: regular rate, regular rhythm and No murmurs present (Cardio) RATE: regular rate RHYTHM: regular rhythm GI: COMMON NORMALS: Soft to palpation and No hepatosplenomegaly present AUSCULTATION: Yes normoactive bowel sounds PALPATION: Yes Soft to palpation, No Tenderness to palpation present (GI), No Guarding due to palpation present (GI) and Yes No hepatosplenomegaly present Extremity: COMMON NORMALS: normal to inspection, capillary refill normal, no clubbing, cyanosis or edema, no calf tenderness and no pedal edema Neuro: SENSORIUM/ORIENTATION: Yes oriented to person, Yes oriented to place and Yes oriented to time Skin: COMMON NORMALS: no rashes or lesions noted GENERAL SKIN EXAM: no rashes or lesions noted Course Vital Signs: Vital signs: Vital Signs Temperature 98.1 F 04/22/25 08:44 Pulse Rate 78 04/22/25 13:59 Respiratory Rate 16 04/22/25 08:44 Blood Pressure 151/86 04/22/25 13:59 Pulse Oximetry 100 04/22/25 13:59 Oxygen Delivery Me thod Room Air 04/22/25 08:44 MDM - Chest Pain Medical Decision Making Her troponins are trending lower than they typically run in trended negative on the 2-hour if she continues to have pain. Patient placed on topical nitro discussed with Dr. Juarez he recommends observation and they will consult on the patient. If she continues to have pain then may consider repeat heart catheterization. Medical Records I reviewed the patient's medical records. Lab Data I reviewed the patient's lab results. 04/22/25 09:16 04/22/25 09:16 Radiology Impressions Chest X-Ray 04/22/25 08:45 IMPRESSION: 1. No acute cardiopulmonary finding. Laboratory Results WBC 7.28 10^3/uL (3.29-11.43) 04/22/25 09:16 RBC 3.44 10^6/uL (3.85-5.65) L 04/22/25 09:16 Hgb 10.10 g/dL (11.27-16.99) L 04/22/25 09:16 Hct 32.7 % (36-47) L 04/22/25 09:16 MCV 95.1 fl (85-98) 04/22/25 09:16 MCH 29.4 pg (27-33) 04/22/25 09:16 MCHC 30.9 g/dL (30-55) 04/22/25 09:16 RDW 13.1 % (12.1-15.1) 04/22/25 09:16 Plt Count 234 10^3/cmm (157-399) 04/22/25 09:16 MPV 9.0 fL (7.4-10.4) 04/22/25 09:16 Neut % (Auto) 68.7 % 04/22/25 09:16 Lymph % (Auto) 19.0 % 04/22/25 09:16 Faulk % (Auto) 7.7 % 04/22/25 09:16 Eos % (Auto) 3.8 % 04/22/25 09:16 Baso % (Auto) 0.5 % 04/22/25 09:16 Neut # (Auto) 5.00 10^3/uL (1.8-7.7) 04/22/25 09:16 Lymph # (Auto) 1.4 10^3/uL (0.8-4.8) 04/22/25 09:16 Faulk # (Auto) 0.6 10^3/uL (0.2-0.9) 04/22/25 09:16 Eos # (Auto) 0.3 10^3/uL (0.0-0.8) 04/22/25 09:16 Baso # (Auto) 0.0 10^3/uL (0.0-0.1) 04/22/25 09:16 Nucleated RBC % (auto) 0 % 04/22/25 09:16 Nucleated RBCs # 0.0 /100WBC 04/22/25 09:16 Sodium 138 mmol/L (136-145) 04/22/25 09:16 Potassium 4.1 mmol/L (3.5-5.1) 04/22/25 09:16 Chloride 95 mmol/L (98-107) L 04/22/25 09:16 Carbon Dioxide 25 mmol/L (22-29) 04/22/25 09:16 Anion Gap 22.1 (5-19) H 04/22/25 09:16 BUN 19 mg/dL (6-20) 04/22/25 09:16 Creatinine 3.9 mg/dL (0.5-0.9) H 04/22/25 09:16 GFR Calculation 12.9 mL/min (90-130) L 04/22/25 09:16 Glucose 189 mg/dL (65-115) H 04/22/25 09:16 Calculated Osmolality 293 mOsm/kg (285-295) 04/22/25 09:16 Calcium 8.5 mg/dL (8.5-10.5) 04/22/25 09:16 Total Bilirubin 0.3 mg/dL (0.15-1.2) 04/22/25 09:16 AST 14 U/L (0-32) 04/22/25 09:16 ALT 14 U/L (0-33) 04/22/25 09:16 Alkaline Phosphatase 254 U/L (35-105) H 04/22/25 09:16 Troponin T Baseline 150 ng/L (0-10) H* 04/22/25 09:16 Troponin T 120 Minute 144.3 ng/L (0-10) H 04/22/25 11:13 Delta Troponin T -5.7 ABS# (0-10) L 04/22/25 11:13 Total Protein 7.5 g/dL (6.6-8.7) 04/22/25 09:16 Albumin 4.0 g/dL (3.5-5.2) 04/22/25 09:16 Globulin 3.5 g/dL (1.3-4.6) 04/22/25 09:16 All radiology interpretation(s) finalized by discharge EKG Data EKG 1: I personally reviewed and interpreted this EKG as follows: Prior EKG tracings: available for review Interpretation: EKG 04/22/2025 8:47 AM sinus rhythm no acute ST changes rate of 85 parable 187 QTc 438. Compared to EKG 04/08/2025 no significant change EKG 2: I personally reviewed and interpreted this EKG as follows: Interpretation: EKG 1030 2025-05-19 sinus rhythm rate of 77 QTc [address] changes compared to EKG done earlier same day no significant change Discharge Plan Discharge Patient Disposition: Placed in Observation Clinical Impression: Unstable angina, CAD (coronary artery disease), End stage renal disease on dialysis Coding Level of Care Code ED Watch Dial Stoner for Chg Fwd Heart Score HEART Score Components History: Highly Suspicious EKG: Normal Age: Less than 45 yrs Risk Factors: >/=3 Risk Factors Troponin: Baseline Trop >45 ng/L HEART Score RESULT HEART Score: 6
--- OUTSIDE RECORDS SUMMARY | 2025-04-22 09:06 | XMS_ITS | Encounter Summary ---
Author Organization [facility], [facility] Address [address] [place] [address] Phone Care Team Providers Care Procurement Accountant Name Role Phone Alexis Garcia MD Primary Care Provider [phone] Encounter Details Date Type Department Care Team (Late st Contact Info) Description 12/29/2024 TCM [facility] D[facility], [facility] [address] [place] [address] Yann Lozano NP [address] [place] [address] Social History Tobacco Use Types [...] Patient: Donita Aguilar : 1985 C: [facility] Note Type: Dialysis TCM Service Date: 12/29/2024 The patient was seen for a [id number] visit as part of Transitional Care Management services. Attending Vocational Teacher: MACHO JOHANSEN Dialysis Location: [facility] Schedule: Shift: 2 INTERACTIVE CONTACT This [id number] visit occurred within 2 business days of the patient?s discharge. COMMENTS: Seen on HD machine during dialysis HOSPITALIZATION SUMMARY Patient transitioned from: Hospital Patient transitioned to: Home Admit Date: 12/26/2024 Discharge Date: 12/28/2024 Discharged info reviewed: No outstanding diagnostic tests and treatments Reason for admission: Admission Dx: CP Discharge Dx: Non-cardiac chest pain ESRD Atherosclerotic heart disease of [place] coronary artery with other forms of angina [...] Three times a day With Meals. Current [facility] Allergies Allergen: acetaminophen Reaction: Nausea/Vomiting [...] to follow with cardiology, pcp, pulmonology and hand carver as noted on discharge. EDUCATION Education relevant [...] or secondary infection VISIT DIAGNOSES CPT Code 05669 - High complexity, seen within 7 days of discharge. I20.9 Angina pectoris (HCC) COMMENTS: Verified she has nitroglycerin on hand at home: reviewed appropriate usage. Instructed to call cardiology for follow up appointment K76.0 Fatty (change of) liver, not elsewhere classified COMMENTS: Newly dx on imaging. Per hospital records, has been referred to hand carver. Monitor for liver dysfunction, assess for any needed support J18.9 Pneumonia, unspecified organism COMMENTS: Monitor for impaired perfusion, fever/chills, increased SOB. If symptoms present, send for CXray. Advised to call pulmonology for follow up as referred by hospital I25.118 Atherosclerotic heart disease of [place] coronary artery with other forms of angina pectoris COMMENTS: RCA is moderate size and caliber vessel which is dominant had proximal 40% stenosis. Left main has luminal irregularity with distal 10% stenosis. Cardiology recommended medical management. Negative for angina on assessment today Reviewed symptoms, usage of nitro: instructed to call cardiology for follow up appt. I26.866 Atherosclerosis of other coronary artery bypass graft(s) [...] on filedocumented in this encounter Care Teams Procurement Accountant Relationship Specialty Start Date End Date Alexis Garcia MD [address] [place] [address] PCP - General Family Medicine 04/16/22 documented as of this encounter
--- OUTSIDE RECORDS SUMMARY | 2025-04-22 09:06 | XMS_ITS | Encounter Summary ---
Author Organization [facility] Address [address] [place] [address] Care Team Providers Care Director Of Marketing Operations Name Role Phone Shravan Jones DO Primary Care Provider [phone] Encounter Details Date Type Department Care Team (Late st Contact Info) Description 04/20/2025 External Device Data STL ABSTRACTION Provider, Abstract [...] and Family Not on file 09/22/2023 Attends [employer] Not on file 09/21 Active Member [...] on file Legal Sex Female 3:34 PM DRAIN LAYER Gender Identity Not on file Sexual Orientation Not on file documented as of this encounter Plan of Treatment Upcoming Encounters Date Type Department Care Team (Late st Contact Info) Description 05/19/2025 9:30 AM DRAIN LAYER Office Visit [facility] [place] [address] [place] [address] Abel Menon DO [address] [facility] [address] [place] [address] documented as of this encounter Visit Diagnoses Not on filedocumented in this encounter Care Teams Director Of Marketing Operations Relationship Specialty Start Date End Date Shravan Jones DO PCP - General Family Practice 12/04/16 documented as of this encounter
--- OUTSIDE RECORDS SUMMARY | 2025-04-22 09:06 | XMS_ITS | Clinical Summary ---
Author Organization [facility] Facility Address [address] [address] Care Team Providers Care Exchange Teller Name Role Phone Alexis Garcia MD Primary Care Provider [phone] Encounters Date Type Department Care Team Description 04/20/2025 Treatment [facility] [place] [address] [place] [address] Chey Navas MD End stage renal disease; Dependence on renal dialysis 04/15/2025 Orders Only [place] [facility], [facility] [address] [place] [address] Chey Navas MD 04/13/2025 Orders Only [place] [facility], [facility] [address] [place] [address] Chey Navas MD 04/13/2025 Treatment [facility], [facility] [address] [place] [address] Melissa Wiley NP End stage renal disease; Dependence on renal dialysis 04/01/2025 Orders Only [place] [facility], [facility] [address] [place] [address] Chey Navas MD 03/30/[address] [place] [address] [facility] [place], [facility] [address] [place] [address] Karlene Cespedes NP End stage renal disease; Dependence on renal dialysis 03/25/2025 Treatment [facility] [place], [facility] [address] [place] [address] Melissa Wiley NP End stage renal disease; Dependence on renal dialysis 03/25/2025 [facility] [address] [place] [address] Chey Navas MD 03/18/2025 [facility], [facility] [address] [place] [address] Chey Navas MD 03/16/2025 Treatment [facility], [facility] [address] [place] [address] Chey Navas MD End stage renal disease; Dependence on renal dialysis 03/11/2025 Orders Only [facility], [facility] [address] [place] [address] Chey Navas MD 03/09/2025 Treatment [facility], [facility] [address] [place] [address] Melissa Wiley NP End stage renal disease; Dependence on renal dialysis 03/04/2025 [facility] [address] [place] [address] Chey Navas MD 03/02/2025 [facility] [address] [place] [address] Chey Navas MD 03/02/[address] [place], [place] [address]rology [facility], [facility] [address] [place] [address] Melissa Wiley NP End stage renal disease; Dependence on renal dialysis 02/18/2025 Orders Only [facility] [address] [place] [address] Chey Navas MD 02/11/2025 Orders [facility] [address] [place] [address] Chey Navas MD 02/09/[address] [place] [address] Nephrology [facility], [facility] [address] [place] [address] Chey Navas MD End stage renal disease; Dependence on renal dialysis 02/04/2025 Orders Only [place] [facility], [facility] [address] [place] [address] Chey Navas MD 02/02/[address] [place] [address] Nephrology [facility], [facility] [address] [place] [address] Karlene Cespedes NP End stage renal disease; Dependence on renal dialysis 01/28/[address] [place], [place] [address]rology [facility], [facility] [address] [place] [address] Melissa Wiley NP End stage renal disease; Dependence on renal dialysis 01/28/2025 Orders Only [place] [facility], [facility] [address] [place] [address] Chey Navas MD 01/21/2025 Orders Only [place] [facility], [facility] [address] [place] [address] Chey Navas MD from Last [...] Recombivax 3-dose series) 03/13/2001 03/13/2000, 000, 09/06/1999 Diabetes: Pedal Pulse Checked 09/12/2023 Diabetes: Sensory Foot Exam 09/12/2023 Diabetes: Visual Foot Exam 09/12/2023 Pneumococcal Vaccine: Peds ( 0 to 5 Years) and At-Risk Patients (6 to 49 Years) (3 of 3 - PCV) 12/10/2024 12/11/2023, 08/04/2017 Diabetes: Ophthalmology Exam 05/20/2025 05/20/2024 Diabetes: Hemoglobin A1C 06/01/20252 025, 11/26/2024, 08/27/2024, Additional history exists Influenza Vaccine Completed 03/18/2025, 04/21/2024 Procedures Procedure Name Priority Date/Time Associated Diagnosis Comments HEMATOLOGY Routine 04/15/2025 CHEMISTRY Routine 04/13/2025 HEMATOLOGY Routine 04/01/2025 [facility] RESULTS [...] 01/28/2025 CHEMISTRY Routine 01/28/2025 HEMATOLOGY Routine 01/21/2025 from Last 3 Months Results * (ABNORMAL) HEMATOLOGY (04/15/2025) Only the most recent of12 resultswithin the time period is included. Hemoglobin 9.5(L) 12.0 - 16.0 g/dL [facility] Hemoglobin x 3 28.5(L) 36.0 - 48.0 % [facility] 04/15/2025 04/16/2025 8:3 6 AM CDT Narrative [facility] - 04/16/2025 Unless otherwise specified, test(s) performed at: [facility], [address] [place] [address] FOREST PATHOLOGIST: Jose Luis France M.D. For any questions, please call customer service at FREQUENCY:OTHER Resulting Agency Comment Specimen source: Blood us Chey Navas MD LAB BLOOD ORDERABLES Final Re sult [facility] See order comments or contact performing lab Unknown, [place] * (ABNORMAL) [facility] Chemistry (04/13/2025) Only the most recent of6 resultswithin the time period is included. PTH 561(H) 16 - 80 pg/mL [facility] 04/13/2025 04/14/2025 9:5 3 AM CDT Narrative [facility] - 04/14/2025 Unless otherwise specified, test(s) performed at: [facility], [address] [place] [address] FOREST PATHOLOGIST: Jose Luis France M.D. For any questions, please call customer service at FREQUENCY:OTHER Resulting Agency Comment Specimen source: Plasma us Chey Navas MD LAB BLOOD ORDERABLES Final Re sult Performing Organization Address City/[facility]/ZIP Co de Phone Number [facility] See order comments or contact performing lab Unknown, [place] * HD KINETICS (03/25/2025) Only the most recent of3 resultswithin the time period is included. % Urea Reduction 79 65 - 80 % [facility] 03/25/2025 03/26/2025 11: 23 AM CDT Narrative Resulting Agency Comment Specimen source: Plasma us Chey Navas MD LAB BLOOD ORDERABLES Final Re sult Performing Organization Address [facility] de Phone Number [facility] See order comments or contact performing lab Unknown, [place] * (ABNORMAL) POST CHEMISTRY (03/25/2025) Only the most recent of3 resultswithin the time period is included. BUN Post Dialysis 5(L) 6 - 19 mg/dL [facility] 03/25/2025 03/26/2025 11: 23 AM CDT Narrative [facility] - 03/26/2025 Unless otherwise specified, test(s) performed at: [facility], [address] [place], [place] [id number] FOREST PATHOLOGIST: Jose Luis France M.D. For any questions, please call customer service at FREQUENCY:MONTHLY Resulting Agency Comment Specimen source: Plasma us Chey Navas MD LAB BLOOD ORDERABLES Final Re sult Performing Organization Address City/[facility]/ZIP Co de Phone Number [facility] See order comments or contact performing lab Unknown, [place] * [facility] Lab Results (03/25/2025) Only the most recent of3 resultswithin the time period is included. Pathologist [facility] nPCR_HD 0.55 [facility] spKt/V (Daugirdas II) 1.80 [facility] eKt/V Gotch 1.54 [facility] e [place] eNPCR 0.52 [facility] eKdrt/V 1.54 [facility] PCR 27.03 [facility] WSTDKT/V 2.6 [facility] spKt/V Gotch 1.82 [facility] eKt/V ([place]) 1.55 [facility] 03/25/2025 03/25/2025 [facility] Ordering Provider LAB BLOOD ORDERABLES Final Result Performing Organization Address City/[facility] Co de Phone Number [facility] Contact Performing lab Unknown, [place] * (ABNORMAL) SPECIAL CHEMISTRY (03/02/2025) [facility] Hemoglobin A1C 6.5(H) 4.8 - 5.9 % [facility] 03/02/2025 03/03/2025 11: 04 AM CDT Narrative Resulting Agency Comment Specimen source: Blood Chey Navas MD LAB BLOOD BANK TEST ORDERABLE S Final Result Performing Organization Address City/[facility]/ZIP Co de Phone Number [facility] See order comments or contact performing lab Unknown, [place] * IMMUNO CHEMISTRY (03/02/2025) [facility] Hepatitis C Antibody Nonreactive Nonreactive [facility] Comment: No HCV antibody detected. The above test result was obtained using [employer] XP chemiluminescent method. Results obtained with different assay methods or kits cannot be used interchangeably. S/CO Ratio 0.03 0.00 - 0.79 [facility] Comment: s/co ratio Interpretation Supplemental testing <0.80 Nonreactive No further testing required. 0.80-0.99 Equivocal HCV RNA Quantitative Real-Time PCR is recommended. 1.00->11.00 Reactive HCV RNA Quantitative Real-Time PCR is recommended to distinguish active from resolved cases. 03/02/2025 03/03/2025 11: 29 AM CDT Narrative [facility] - 03/03/2025 Unless otherwise specified, test(s) performed at: [facility], [address] [place] [id number] FOREST PATHOLOGIST: Jose Luis France M.D. For any questions, please call customer service at FREQUENCY:MONTHLY Resulting Agency Comment Specimen source: Serum Chey Navas MD LAB BLOOD ORDERABLES Final Re sult Performing Organization Address City/[facility]/ZIP Co de Phone Number [facility] See order comments or contact performing lab Unknown, [place] * TRACE ELEMENTS (03/02/2025) Aluminum 5 0 - 10 mcg/L [facility] Comment: This test was developed and its performance characteristics determined by [facility]. It has not been cleared or approved by the FDA. The laboratory is regulated under CLIA as qualified to perform high complexity testing. This test is used for clinical purposes. It should not be regarded as investigational or for research. 03/02/2025 03/03/2025 10: 54 AM CDT Narrative [facility] - 03/03/2025 Unless otherwise specified, test(s) performed at: [facility], [address] [place] [address] FOREST PATHOLOGIST: Jose Luis France M.D. For any questions, please call customer service at FREQUENCY:MONTHLY Resulting Agency Comment Specimen source: Serum Chey Navas MD LAB BLOOD ORDERABLES Final Re sult [facility] See order comments or contact performing lab Unknown, [place] from Last [address] [place] [id number] Medicaid [place] ([id number]) Medicare Care Teams Exchange Teller Relationship Specialty Start Date End Date Alexis Garcia MD [address] [place] [address] PCP - General Family Medicine 04/16/22
--- OUTSIDE RECORDS SUMMARY | 2025-04-22 09:07 | XMS_ITS | Encounter Summary ---
Author Organization [facility] Address [address] [place] [address] Care Team Providers Care International Flight Attendant Name Role Phone Shravan Jones DO Primary Care Provider [phone] Encounter Details Date Type Department Care Team (Late st Contact Info) Description 12/31/2016 Lab Requisition [facility] Laboratory Services [address] [place] [address] [place] [address] David Ortega MD [address] [place] [address] Social History Tobacco Use Types Packs/Day Years Used Date Smoking Tobacco: Every Day Cigarettes Comments:pt lethargic Comments Unknown Sex and Gender Information Value Date Recorded Sex Assigned at Not on file 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 This will have limited patient impact. us David Ortega MD CHEMISTRY ORDERABLES Final Res ult [facility] CLIA# [id number] [address] [place] [address] * (ABNORMAL) COMPREHENSIVE METABOLIC PANEL (12/31/2016 2:26 AM CDT) SODIUM 138 136 - 145 mmol/L 12/31/2016 5:52 AM CDT [facility] POTASSIUM 4.7 3.5 - 5.1 mmol/L 12/31/2016 5:52 AM [facility] CHLORIDE 102 98 - 107 mmol/L 12/31/2016 5:52 AM T [facility] CO2 27 21 - 32 mmol/L 12/31/2016 5:52 AM T [facility] CALCIUM 9.1 8.4 - 10.1 mg/dL 12/31/2016 5:52 AM T [facility] BUN 17 7 - 17 mg/dL 12/31/2016 5:52 AM T [facility] CREATININE 0.87 0.55 - 1.02 mg/dL 12/31/2016 5:52 AM T [facility] GLUCOSE 214(H) 74 - 106 mg/dL 12/31/2016 5:52 AM T [facility] TOTAL PROTEIN 8.2 6.4 - 8.2 g/dL 12/31/2016 5:52 AM T [facility] ALBUMIN 1.9(L) 3.4 - 5.0 g/dL 12/31/2016 5:52 AM CDT [facility] BILIRUBIN TOTAL 0.2 0.2 - 1.0 mg/dL 12/31/2016 5:52 AM CDT [facility] ALKALINE PHOSPHATASE 95 25 - 100 U/L 12/31/2016 5:52 AM CDT [facility] AST 9(L) 15 - 37 U/L 12/31/2016 5:52 AM CDT [facility] ALT 14 13 - 61 U/L 12/31/2016 5:52 AM CDT [facility] GFR >60 >=60 mL/min/1.7 3 sq meter 12/31/2016 5:52 AM T [facility] Comment: eGFR has not [...] 3 sq meter 12/31/2016 5:52 AM CDT [facility] ANION GAP 9 4 - 30 mmol/L 12/31/2016 5:52 AM T [facility] Blood 12/31/2016 2:26 AM CDT 12/31/2016 5:17 AM CDT us David Ortega MD CHEMISTRY ORDERABLES Final Res ult [facility] CLIA# [id number] [address] [place] [address] * (ABNORMAL) CBC WITH DIFFERENTIAL (12/31/2016 2:26 AM CDT) WBC 13.7(H) 4.5 - 11.0 K/uL 12/31/2016 6:32 AM [facility] RBC 3.66(L) 4.20 - 5.40 M/uL 12/31/2016 6:32 AM [facility] HEMOGLOBIN 9.3(L) 12.0 - 16.0 g/dL 12/31/2016 6:32 AM [facility] HEMATOCRIT 29.6(L) 36.0 - 46.0 % 12/31/2016 6:32 AM [facility] MCV 80.9(L) 84.0 - 103.0 fL 12/31/2016 6:32 AM [facility] MCH 25.4(L) 27.0 - 34.0 pg 12/31/2016 6:32 AM [facility] MCHC 31.4 30.0 - 35.0 g/dL 12/31/2016 6:32 AM [facility] RDW 17.4(H) 11.0 - 14.5 % 12/31/2016 6:32 AM [facility] RDW-STDEV 52.1 37.0 - 54.0 fL 12/31/2016 6:32 AM [facility] PLATELETS 767(H) 140 - 440 K/uL 12/31/2016 6:32 AM [facility] MPV 9.0 8.9 - 12.8 fL 12/31/2016 6:32 AM [facility] NEUTROPHILS 68 42 - 75 % 12/31/2016 6:32 AM [facility] LYMPHOCYTES 17(L) 24 - 44 % 12/31/2016 6:32 AM [facility] MONOCYTES 8 2 - 10 % 12/31/2016 6:32 AM [facility] EOSINOPHILS 6 0 - 7 % 12/31/2016 6:32 AM [facility] BASOPHILS 0 0 - 1 % 12/31/2016 6:32 AM [facility] IMMATURE GRANULOCYTES 1 0 - 2 % 12/31/2016 6:32 AM CDT [facility] NEUTROPHIL ABSOLUTE 9.26(H) 2.00 - 8.00 K/uL 12/31/2016 6:32 AM CDT [facility] LYMPHOCYTE ABSOLUTE 2.28 1.20 - 4.00 K/uL 12/31/2016 6:32 AM CDT [facility] MONOCYTE ABSOLUTE 1.07(H) 0.10 - 0.60 K/uL 12/31/2016 6:32 AM CDT [facility] EOSINOPHIL ABSOLUTE 0.82(H) 0.00 - 0.70 K/uL 12/31/2016 6:32 AM CDT [facility] BASOPHILS ABSOLUTE 0.06 0.00 - 0.20 K/uL 12/31/2016 6:32 AM CDT [facility] IMMATURE GRANULOCYTES ABSOLUTE 0.17(H) 0.00 - 0.10 K/uL 12/31/2016 6:32 AM CDT [facility] Blood 12/31/2016 2:26 AM CDT 12/31/2016 5:17 AM CDT Narrative [facility] - 12/31/2016 6:32 AM CDT Smear reviewed us David Ortega MD HEMATOLOGY ORDERABLES Final Re sult [facility] CLIA# [id number] [address] [place] [address] documented in this encounter Visit Diagnoses Not on filedocumented in this encounter Care Teams International Flight Attendant Relationship Specialty Start Date End Date Shravan Jones DO PCP - General Family Practice 12/04/16 documented as of this encounter
--- OUTSIDE RECORDS SUMMARY | 2025-04-22 09:07 | XMS_ITS | Encounter Summary ---
Author Organization [facility] Address [address] [place] [address] Care Team Providers Care Porter Head Name Role Phone Shravan Jones DO Primary Care Provider [phone]- [phone] Encounter Details Date Type Department Care Team (Late st Contact Info) Description 01/07/2017 Lab Requisition [facility] Laboratory Services [address] [place] [address] [place] [address] David Ortega MD [address] [place] [address] Social History Tobacco Use Types Packs/Day Years Used Date Smoking Tobacco: Every Day Cigarettes Comments:pt lethargic Comments Unknown Sex and Gender Information Value Date Recorded Sex Assigned at Not on file 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
--- OUTSIDE RECORDS SUMMARY | 2025-04-22 09:07 | XMS_ITS | Encounter Summary ---
Author Organization [facility] Address [address] [place] [address] Care Team Providers Care Excavating Machine Operator Name Role Phone Shravan Jones DO Primary Care Provider [phone] Encounter Details Date Type Department Care Team (Late st Contact Info) Description 01/02/2017 Lab Requisition [facility] Laboratory Services [address] [place] [address] [place] [address] Izabela Diamond MD NO ADDRESS ON FILE Social History Tobacco Use Types Packs/Day Years Used Date Smoking Tobacco: Every Day Cigarettes Comments:pt lethargic Comments Unknown Sex and Gender Information Value Date Recorded Sex Assigned at Not on file 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 Gender Identity Not on file Sexual Orientation [...] - 145 mmol/L 01/02/2017 6:07 AM CDT [facility] [employer] [facility] POTASSIUM 4.3 3.5 - 5.1 mmol/L 01/02/2017 6:07 AM CDT [facility] CHLORIDE 101 98 - 107 mmol/L 01/02/2017 6:07 AM T [facility] CO2 27 21 - 32 mmol/L 01/02/2017 6:07 AM T [facility] CALCIUM 9.7 8.4 - 10.1 mg/dL 01/02/2017 6:07 AM T [facility] BUN 16 7 - 17 mg/dL 01/02/2017 6:07 AM [facility] CREATININE 0.87 0.55 - 1.02 mg/dL 01/02/2017 6:07 AM T [facility] GLUCOSE 122(H) 74 - 106 mg/dL 01/02/2017 6:07 AM [facility] GFR >60 >=60 mL/min/1.7 3 [...] ORDERABLES Final Res ult [facility] CLIA# [id number] [address] [place] [id number] * (ABNORMAL) CBC WITH DIFFERENTIAL (01/02/2017 3:00 AM CDT) [facility] WBC 10.4 4.5 - 11.0 K/uL 01/02/2017 5:44 AM [facility] RBC 4.30 4.20 - 5.40 M/uL 01/02/2017 5:44 AM [facility] HEMOGLOBIN 10.4(L) 12.0 - 16.0 g/dL 01/02/2017 5:44 AM [facility] HEMATOCRIT 34.5(L) 36.0 - 46.0 % 01/02/2017 5:44 AM [facility] MCV 80.2(L) 84.0 - 103.0 fL 01/02/2017 5:44 AM [facility] MCH 24.2(L) 27.0 - 34.0 pg 01/02/2017 5:44 AM [facility] MCHC 30.1 30.0 - 35.0 g/dL 01/02/2017 5:44 AM [facility] RDW 17.4(H) 11.0 - 14.5 % 01/02/2017 5:44 AM [facility] RDW-STDEV 51.1 37.0 - 54.0 fL 01/02/2017 5:44 AM [facility] PLATELETS 764(H) 140 - 440 K/uL 01/02/2017 5:44 AM [facility] MPV 9.2 8.9 - 12.8 fL 01/02/2017 5:44 AM [facility] NEUTROPHILS 56 42 - 75 % 01/02/2017 5:44 AM [facility] LYMPHOCYTES 27 24 - 44 % 01/02/2017 5:44 AM [facility] MONOCYTES 8 2 - 10 % 01/02/2017 5:44 AM [facility] EOSINOPHILS 7 0 - 7 % 01/02/2017 5:44 AM [facility] BASOPHILS 1 0 - 1 % 01/02/2017 5:44 AM [facility] IMMATURE GRANULOCYTES 1 0 - [...] ORDERABLES Final Re sult [facility] CLIA# [id number] [address] [place] [id number] documented in this encounter Visit Diagnoses Not on filedocumented in this encounter Care Teams Excavating Machine Operator Relationship Specialty Start Date End Date Shravan Jones DO PCP - General Family Practice 12/04/16 documented as of this encounter
--- OUTSIDE RECORDS SUMMARY | 2025-04-22 09:07 | XMS_ITS | Encounter Summary ---
Author Organization [facility], [facility] Address [address] [place] [address] Phone Care Team Providers Care Mergers And Acquisitions Banker Name Role Phone Alexis Garcia MD Primary Care Provider Encounter Details Date Type Department Care Team (Late st Contact Info) Description 04/20/2025 Treatment 8[facility], [facility] [address] [place] [address] Chey Navas MD [address] [place] [address] End stage renal disease; Dependence [...] Dialysis Note - Chey Navas MD - 04/20/2025 12:00 AM CDT Patient: Donita Aguilar, 1985, 39y, F Dialysis Location: [facility] Attending Desizing Machine Operator: Chey Navas Service Date: 04/20/2025 Service Provider: Chey Navas MD I met face to face with the patient today. OVERVIEW The patient presented with ESRD on dialysis Primary cause of renal failure: Type 1 diabetes mellitus with diabetic chronic kidney disease Comments: VSS, seen on HD machine Hx ESRD secondary to DM I. She did start dialysis about during a hospitalization in [place], [place]. Hx of meth us. She did move to to live with her mother and have more support. Still having intermittent CP. Workup has been negative. To see cardiology next week. Medications and labs reviewed. LAST HOSPITALIZATION Discharge Diagnosis: R07.9 Chest pain, unspecified I30.0 Acute nonspecific idiopathic pericarditis Admission Date 04/17/25 Discharge Date 04/19/25 DIALYSIS PRESCRIPTION IHD 3x Week Start date: 04/17/25 Dialyzer: 160NRe Optiflux BFR: 350 DFR: Manual 800 Potassium: 2.0 Sodium: 138 EDW: 63.4 Duration: 3:30 Calcium: 2.5 Bicarb: 36 Rx updated on: 03/25/2025 TREATMENT ASSESSMENT Comments: Stable at goal range. BP Stand Pre 04/15/2025: 174/86 04/13/2025: 134/87 04/10/2025: 109/67 BP Sit Pre 04/15/2025: 160/87 04/13/2025: 158/98 04/10/2025: 143/78 BP Stand Post 04/15/2025: 131/73 04/13/2025: 132/82 04/10/2025: 123/70 BP Sit Post 04/15/2025: 164/83 04/13/2025: 140/84 04/10/2025: 124/82 Prescribed Tx time 04/15/2025: 3:30 04/13/2025: 3:30 04/10/2025: 3:30 Tx Duration 04/15/2025: 3:16 04/13/2025: 3:33 04/10/2025: 3:33 Missed Treatments 0 - last 30 days 0 - last 60 days FLUID ASSESSMENT Comments: Stable. M Fluid status acceptable. EDW (kg) 04/15/2025: 62.9 04/13/2025: 62.9 04/10/2025: 62.9 Weight Pre (kg) 04/15/2025: 63.6 04/13/2025: 64.7 04/10/2025: 65.6 Weight Post (kg) 04/15/2025: 62.8 04/13/2025: 63.3 04/10/2025: 63.4 PWV (kg) 04/15/2025: -0.1 04/13/2025: 0.4 04/10/2025: 0.5 UF Rate (mL/kg/hr) 04/15/2025: 3.9 04/13/2025: 6.2 04/10/2025: 9.8 ADEQUACY ASSESSMENT Comments: Stable trend spKt/V, URR 03/25/2025: 1.8, 79.0 03/02/2025: 1.8, [...] monthly Vit B 12 injections. HGB, TSAT 04/15/2025: 9.5, - 04/01/2025: 9.8, - 03/25/2025: 8.7, 53.0 Ferritin 03/02/2025: 698.0 11/26/2024: 784.0 11/19/2024: 797.0 Mircera, IVP (mcg) 04/13/2025: 50 03/23/2025: 30 03/09/2025: 30 Iron Sucrose (Venofer) (mg) 04/13/2025: 50 04/06/2025: 50 03/30/2025: 50 BMM ASSESSMENT Comments: Increased calcitriol. Ed to take binders and low phos diet Phos is better at goal. PTH, Intact 04/13/2025: 561.0 03/02/2025: 804.0 01/28/2025: 797.0 Calcium, Phosphorus 03/25/2025: 8.4, 5.2 03/02/2025: 7.9, 7.2 01/28/2025: 8.5, 7.6 Vitamin D (Calcitriol) Oral (mcg) 04/15/2025: 1.0 04/13/2025: 1.0 04/10/2025: 1.0 NUTRITION ASSESSMENT Comments: nPCR did drop some. Albumin is about the same. Ed to eat protein in diet. Potassium stable. Diet reviewed with patient. Referred to dietitian. Potassium, Albumin 03/25/2025: 4.9, 3.4 03/02/2025: 4.5, 3.5 01/28/2025: 5.3, 3.5 eNPCR 03/25/2025: 0.52 03/02/2025: 0.77 01/28/2025: 1.05 PHYSICAL EXAM Exam Performed. Vital Signs Reviewed. CV - Blood pressure noted. EXT - No edema. EXT - No ulcers. AVF/AVG Positive thrill/bruit. DIAGNOSIS Chief Complaint: N18.6 End stage renal disease Patient is stable. Patient data updated 04/20/2025 at 10:22 AM Signed By: Chey Navas MD on 04/20/2025 10:24:14 AM documented in this encounter Plan of Treatment Not on file documented as of this encounter Visit Diagnoses Diagnosis End stage renal disease Dependence on renal dialysis documented in this encounter Care Teams Mergers And Acquisitions Banker Relationship Specialty Start Date End Date Alexis Garcia MD [address] [place] [address] PCP - General Family Medicine 04/16/22 documented as of this encounter
--- OUTSIDE RECORDS SUMMARY | 2025-04-22 09:07 | XMS_ITS | Encounter Summary ---
Author Organization [facility] Address [address] [place] [address] Care Team Providers Care Devops Architect Name Role Phone Shravan Jones DO Primary Care Provider [phone] Encounter Details Date Type Department Care Team (Late st Contact Info) Description 01/09/2017 Lab Requisition [facility] Services [facility] [address] [place] [address] Izabela Diamond MD NO ADDRESS ON FILE Social History Tobacco Use Types Packs/Day Years Used Date Smoking Tobacco: Every Day Cigarettes Comments:pt lethargic Comments Unknown Sex and Gender Information Value Date Recorded Sex Assigned at Not on file 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 This will have limited patient impact. us Izabela Diamond MD CHEMISTRY ORDERABLES Final Res ult [facility] CLIA# [id number] [address] [place] [address] * (ABNORMAL) COMPREHENSIVE METABOLIC PANEL (01/09/2017 3:15 AM CDT) SODIUM 139 136 - 145 mmol/L 01/09/2017 5:53 AM CDT [facility] POTASSIUM 4.1 3.5 - 5.1 mmol/L 01/09/2017 5:53 AM T [facility] CHLORIDE 101 98 - 107 mmol/L 01/09/2017 5:53 AM T [facility] CO2 28 21 - 32 mmol/L 01/09/2017 5:53 AM T [facility] CALCIUM 8.8 8.4 - 10.1 mg/dL 01/09/2017 5:53 AM T [facility] BUN 18(H) 7 - 17 mg/dL 01/09/2017 5:53 AM T [facility] CREATININE 0.73 0.55 - 1.02 mg/dL 01/09/2017 5:53 AM T [facility] GLUCOSE 182(H) 74 - 106 mg/dL 01/09/2017 5:53 AM T [facility] TOTAL PROTEIN 8.4(H) 6.4 - 8.2 g/dL 01/09/2017 5:53 AM T [facility] ALBUMIN 2.5(L) 3.4 - 5.0 g/dL 01/09/2017 5:53 AM CDT [facility] BILIRUBIN TOTAL 0.2 0.2 - 1.0 mg/dL 01/09/2017 5:53 AM CDT [facility] ALKALINE PHOSPHATASE 99 25 - 100 U/L 01/09/2017 5:53 AM CDT [facility] AST 30 15 - 37 U/L 01/09/2017 5:53 AM CDT [facility] ALT 27 13 - 61 U/L 01/09/2017 5:53 AM CDT [facility] GFR >60 >=60 mL/min/1.7 3 sq meter 01/09/2017 5:53 AM T [facility] Comment: eGFR has not been validated for [...] 3 sq meter 01/09/2017 5:53 AM CDT [facility] ANION GAP 10 4 - 30 mmol/L 01/09/2017 5:53 AM T [facility] Blood 01/09/2017 3:15 AM CDT 01/09/2017 5:12 AM CDT us Izabela Diamond MD CHEMISTRY ORDERABLES Final Res ult [facility] CLIA# [id number] [address] [place] [address] * (ABNORMAL) CBC WITH DIFFERENTIAL (01/09/2017 3:15 AM CDT) WBC 8.7 4.5 - 11.0 K/uL 01/09/2017 5:20 AM [facility] RBC 4.63 4.20 - 5.40 M/uL 01/09/2017 5:20 AM [facility] HEMOGLOBIN 11.3(L) 12.0 - 16.0 g/dL 01/09/2017 5:20 AM [facility] HEMATOCRIT 36.8 36.0 - 46.0 % 01/09/2017 5:20 AM [facility] MCV 79.5(L) 84.0 - 103.0 fL 01/09/2017 5:20 AM [facility] MCH 24.4(L) 27.0 - 34.0 pg 01/09/2017 5:20 AM [facility] MCHC 30.7 30.0 - 35.0 g/dL 01/09/2017 5:20 AM [facility] RDW 17.3(H) 11.0 - 14.5 % 01/09/2017 5:20 AM [facility] RDW-STDEV 50.4 37.0 - 54.0 fL 01/09/2017 5:20 AM [facility] PLATELETS 463(H) 140 - 440 K/uL 01/09/2017 5:20 AM [facility] MPV 9.9 8.9 - 12.8 fL 01/09/2017 5:20 AM [facility] NEUTROPHILS 46 42 - 75 % 01/09/2017 5:20 AM [facility] LYMPHOCYTES 33 24 - 44 % 01/09/2017 5:20 AM [facility] MONOCYTES 8 2 - 10 % 01/09/2017 5:20 AM [facility] EOSINOPHILS 11(H) 0 - 7 % 01/09/2017 5:20 AM [facility] BASOPHILS 1 0 - 1 % 01/09/2017 5:20 AM [facility] IMMATURE GRANULOCYTES 0 0 - 2 % 01/09/2017 5:20 AM [facility] NEUTROPHIL ABSOLUTE 4.05 2.00 - 8.00 K/uL 01/09/2017 5:20 AM CDT [facility] LYMPHOCYTE ABSOLUTE 2.86 1.20 - 4.00 K/uL 01/09/2017 5:20 AM CDT [facility] MONOCYTE ABSOLUTE 0.73(H) 0.10 - 0.60 K/uL 01/09/2017 5:20 AM CDT [facility] EOSINOPHIL ABSOLUTE 0.95(H) 0.00 - 0.70 K/uL 01/09/2017 5:20 AM CDT [facility] BASOPHILS ABSOLUTE 0.11 0.00 - 0.20 K/uL 01/09/2017 5:20 AM CDT [facility] IMMATURE GRANULOCYTES ABSOLUTE 0.03 0.00 - 0.10 K/uL 01/09/2017 5:20 AM CDT [facility] Blood 01/09/2017 3:15 AM CDT 01/09/2017 5:12 AM CDT us Izabela Diamond MD HEMATOLOGY ORDERABLES Final Re sult [facility] CLIA# [id number] [address] [place] [address] * (ABNORMAL) HEMOGLOBIN A1C (01/09/2017 2:52 AM CDT) HEMOGLOBIN A1C 8.9(H) 4.0 - 6.0 % 01/09/2017 1:31 PM CDT [facility] EST. AVG GLUCOSE, A1C 209 mg/dL 01/09/2017 1:31 PM CDT [facility] Blood 01/09/2017 2:52 AM CDT 01/09/2017 6:53 AM CDT Narrative [facility] - 01/09/2017 1:31 PM CDT Test performed on [employer] instrumentation using HPLC methodology us Izabela Diamond MD CHEMISTRY ORDERABLES Final Res ult [facility] CLIA# [id number] [address] [place] [address] documented in this encounter Visit Diagnoses Not on filedocumented in this encounter Care Teams Devops Architect Relationship Specialty Start Date End Date Shravan Jones DO PCP - General Family Practice 12/04/16 documented as of this encounter
--- OUTSIDE RECORDS SUMMARY | 2025-04-22 09:07 | XMS_ITS | Encounter Summary ---
Author Organization [facility] Address [address] [place] [address] Care Team Providers Care Cloth Beamer Name Role Phone Shravan Jones DO Primary Care Provider [phone] Encounter Details Date Type Department Care Team (Latest Contact Info) Description 05/14/2003 Outpatient [facility] Oral and Maxillo Surgery[address] [place] [address] Jimmy Tineo, CLIVES NO ADDRESS ON FILE UNSPEC DENTAL CARIES (Primary Dx); TOOTH POSITION ANOMALY Social History Tobacco Use Types Packs/Day Years Used Date Smoking Tobacco: Never Assessed Comments Unknown Sex and Gender Information Value Date Recorded Sex Assigned at Not on file 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
--- OUTSIDE RECORDS SUMMARY | 2025-04-22 09:07 | XMS_ITS | Encounter Summary ---
Author Organization [facility] Address [address] [place] [address] Care Team Providers Care Promotional Marketing Analyst Name Role Phone Shravan Jones DO Primary Care Provider [phone] Encounter Details Date Type Department Care Team (Late st Contact Info) Description 01/07/2017 Lab Requisition [facility] Laboratory [facility] [address] [place] [address] David Ortega MD [address] [place] [address] Social History Tobacco Use Types Packs/Day Years Used Date Smoking Tobacco: Every Day Cigarettes Comments:pt lethargic Comments Unknown Sex and Gender Information Value Date Recorded Sex Assigned at Not on file 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 Gender Identity Not on file Sexual [...] Not Detected 01/07/2017 8:08 PM CDT [facility] Stool STOOL SPECIMEN / Unknown 01/07/2017 1:54 PM CDT 01/07/2017 6:53 PM CDT Narrative [facility] - 01/07/2017 8:08 PM CDT [...] - GENERAL ORDERAB LES Final Result [facility] CLIA# [id number] [address] [place] [address] documented in this encounter Visit Diagnoses Not on filedocumented in this encounter Care Teams Promotional Marketing Analyst Relationship Specialty Start Date End Date Shravan Jones DO PCP - General Family Practice 12/04/16 documented as of this encounter
--- OUTSIDE RECORDS SUMMARY | 2025-04-22 09:07 | XMS_ITS | Encounter Summary ---
Author Organization [facility] Address [address] [place] [address] Care Team Providers Care Dowel Sticker Operator Name Role Phone Shravan Jones DO Primary Care Provider [phone]- [phone] Encounter Details Date Type Department Care Team (Late st Contact Info) Description 12/12/2016 Nurse Only [facility] 4D Surgery Heart Lung [address] 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
--- OUTSIDE RECORDS SUMMARY | 2025-04-22 09:07 | XMS_ITS | Encounter Summary ---
Author Organization [facility], [facility] Address [address] [place] [address] Phone Care Team Providers Care Warning Coordination Meteorologist Name Role Phone Alexis Garcia MD Primary Care Provider [phone] Encounter Details Date Type Department Care Team (Late st Contact Info) Description 04/16/2022 Orders Only [facility] [address] [place] [address] Chronic kidney disease, Stage IV [...] (severe) documented in this encounter Care Teams Warning Coordination Meteorologist Relationship Specialty Start Date End Date Alexis Garcia MD [address] [place] [address] PCP - General Family Medicine 04/16/22 documented as of this encounter
--- OUTSIDE RECORDS SUMMARY | 2025-04-22 09:07 | XMS_ITS | Encounter Summary ---
Author Organization [facility], [facility] Address [address] [place] [address] Phone Care Team Providers Care Spindle Frame Carver Name Role Phone Alexis Garcia MD Primary Care Provider [phone] Encounter Details Date Type Department Care Team (Late st Contact Info) Description 04/15/2025 Orders Only [facility] [address] [place] [address] Chey Navas MD [address] [place] [address] Social History Tobacco Use Types [...] Date/Time Associated Diagnosis Comments HEMATOLOGY Routine 04/15/2025 documented in this encounter Results * (ABNORMAL) HEMATOLOGY (04/15/2025) Hemoglobin 9.5(L) 12.0 - 16.0 g/dL [facility] Hemoglobin x 3 28.5(L) 36.0 - 48.0 % [facility] 04/15/2025 04/16/2025 8:3 6 AM CDT Narrative [facility] - 04/16/2025 Unless otherwise specified, test(s) performed at: [facility], [address] [place] [address] MANAGER OF PROGRAM: Jose Luis France M.D. For any questions, please call customer service at FREQUENCY:OTHER Resulting Agency Comment Specimen source: Blood us Chey Navas MD LAB BLOOD ORDERABLES Final Re sult [facility] See order comments or contact performing lab Unknown, [place] documented in this encounter Visit Diagnoses Not on filedocumented in this encounter Care Teams Spindle Frame Carver Relationship Specialty Start Date End Date Alexis Garcia MD [address] [place] [address] PCP - General Family Medicine 04/16/22 documented as of this encounter
--- OUTSIDE RECORDS SUMMARY | 2025-04-22 09:07 | XMS_ITS | Clinical Summary ---
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 Gender Identity Not on file Sexual Orientation [...] 10/11/1999, 09/06/1999 Medical Devices Implanted Type Area Field Health Officer Device Identifier Shelf Expiration Date Model / Serial / Lot Max tracy Flour [id number] - [id number] Implanted:Qty: 2 on 12/17/2016 by Deandre Alan MD at [facility] Biological Left: Lung CR [employer] 09/19/2019 [id number] / / [id number] Control Implant Funmi Procedures Procedure Name Priority Date/Time Associated Diagnosis Comments HEMOGLOBIN A1C Routine 01/09/2017 2:52 AM CDT from Last 3 Months or Most Recently Relevant to Health Maintenance Results * (ABNORMAL) HEMOGLOBIN A1C (01/09/2017 2:52 AM CDT) HEMOGLOBIN A1C 8.9(H) 4.0 - 6.0 % 01/09/2017 1:31 PM CDT [facility] EST. AVG GLUCOSE, A1C 209 mg/dL 01/09/2017 1:31 PM CDT [facility] Blood 01/09/2017 2:52 AM CDT 01/09/2017 6:53 AM CDT Narrative [facility] - 01/09/2017 1:31 PM CDT Test performed on [employer] instrumentation using HPLC methodology us Izabela Diamond MD CHEMISTRY ORDERABLES Final Res ult [facility] CLIA# [id number] [address] [place] [address] from Last 3 Months or Most Recently Relevant to Health Maintenance Insurance [place], [place] [id number] [place] [address] MEDICAID Advance Directives For more information, please contact: [phone] * Full Code (Latest Code Status on File) Date Activated Date Inactivated Comments 12/17/2016 1:05 PM 12/27/2016 11:32 PM Care Teams Plasma Table Operator Relationship Specialty Start Date End Date Shravan Jones DO PCP - General Family Practice 12/04/16
--- OUTSIDE RECORDS SUMMARY | 2025-04-22 09:07 | XMS_ITS | Data Portability ---
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 4 13:10:04 Celiac disease 202651285 Active 2023 XIMENA coles [facility] 4 13:10:14 Stented artery 179574629 Active 2023 XIMENA coles [facility] 4 13:11:26 End-stag e renal disease 81172096 Active 2023 ELIZABETH HOUSER, [address], [address] , [facility] 5 12:01:02 Recurren t urinary tract infectio n 936148554 Active 2023 XIMENA coles [facility] 4 12:26:12 Chiari malforma tion 937343771 Active 2023 XIMENA coles [facility] 4 12:26:50 Steatoti c liver disease 837016992 Active 2023 XIMENA coles [facility] 4 12:27:02 Anemia 192981263 Active 2023 ELIZABETH HOUSER, [facility] [address] [place], [address], [facility], DonteL.CJacobo 5 11:47:10 Female pelvic inflamma tory disease 499208180 Active 2023 XIMENA coles [facility].[facility].C[facility] 4 12:28:16 Mixed anxiety and depressi ve disorder 534993547 Active 2023 XIMENA coles [facility] 4 12:28:28 Pancreat itis 34760570 Active 2023 XIMENA coles [facility] 4 12:28:40 Diabetic ketoacid osis 812155363 Active 2023 recurren t XIMENA coles [facility] 4 12:28:57 Migraine 67033189 Active 2023 ELIZABETH HOUSER, [facility] [address] [place], [address], [facility] 5 12:01:02 Cardiome enoch 1550034 Active 2023 XIMENA coles [facility] 4 12:30:17 Edema 457765948 Active 2023 XIMENA coles [facility] 4 23:45:39 Edema due to fluid overload 161885296 Active 2023 XIMENA coles [facility] 4 23:45:54 End stage renal failure on dialysis 748568870 Active 2023 SUZANNE HEATON [address] [place], [address], [facility] 5 11:47:10 Esophagi tis 10824805 Active 2024 XIMENA coles [facility] 5 18:23:17 Chronic pain 34212510 Active 2024 Davian Ren MD [address] [place], [address], [facility] 5 09:12:38 Notes:Some problems listed i n Documents: #[id number], #[id number], #[id number], #[id number] could not be added to this patient's chart. Please review these documents and add these problems to the patient's chart manually as needed. Problem Notes None recorded. Procedures Surgical History Date Name Laterality Status Provider Name and Address Organization Details Recorded Time 04/07/20 25 plain X-ray of chest completed XIMENA KEATING [facility] 04/08/2025 12:01:33 03/28/20 25 plain X-ray of chest completed XIMENA KEATING [facility] 03/31/2025 11:10:09 03/21/20 25 plain X-ray of chest completed XIMENA KEATING [facility] 03/31/2025 11:07:12 03/04/20 25 plain X-ray of chest completed XIMENA KEATING [facility] LJacoboL.C. 03/31/2025 11:09:47 12/27/[address] 25 [address] of chest completed [facility] 12/27/2024 14:20:38 12/26/19 25 plain X-ray of chest completed [facility] 12/27/2024 14:13:55 11/11/19 25 plain X-ray of cervical spine completed [facility], LJacoboL.C. 11/11/2024 12:44:02 10/01/19 25 angiography completed [facility], L.L.CJacobo 10/01/2024 18:38:18 09/27/19 25 plain X-ray of chest completed [facility], LJacoboL.CJacobo 09/27/2024 18:18:09 09/27/19 25 echocardiography completed [facility] 10/01/2024 18:33:00 09/22/19 25 ultrasonography of right breast completed [facility] 09/21/2024 13:39:24 09/22/19 25 mammography completed [facility] 09/21/2024 13:40:36 09/11/[address] of abdomen completed [facility], L.L.CJacobo 09/13/2024 14:56:32 09/10/19 25 angiography of coronary artery completed [facility] 09/13/2024 14:50:21 09/09/19 25 echocardiography completed [facility] 09/13/2024 14:54:55 09/08/19 25 plain X-ray of chest completed [facility], LJacoboL.CJacobo 09/13/2024 14:57:51 08/24/[address] of chest completed [facility], L.L.CJacobo 08/24/2024 12:28:02 04/28/20 24 plain X-ray of chest completed [facility], KaelynCJacobo 04/30/2024 11:08:42 03/31/20 24 plain X-ray of chest completed [facility], Billie 04/01/2024 14:05:05 03/27/20 24 imaging guided percutaneous transluminal angioplasty of coronary artery with contrast completed [facility], Billie 10/05/2024 10:23:19 02/28/20 24 radiographic procedure on chest and/or abdomen completed [facility], Billie 03/04/2024 15:02:31 02/28/[address] of abdomen completed [facility], Billie 03/04/2024 15:03:26 01/19/20 24 diagnostic radiography of abdomen completed [facility], KaelynCJacobo 01/21/2024 17:26:25 01/06/20 24 plain X-ray of chest completed [facility], Billie 01/07/2024 15:42:42 12/27/19 24 plain X-ray of chest completed [facility], Billie 12/29/2023 23:23:06 12/27/[address] of chest, abdomen and pelvis completed [facility], KaelynCJacobo 12/29/2023 23:32:58 12/24/19 24 plain X-ray of chest completed [facility], KaelynCJacobo 12/29/2023 23:56:29 12/20/[address] of chest completed [facility], KaelynCJacobo 12/21/2023 12:33:52 12/20/19 24 plain X-ray of chest completed [facility], L.L.CJacobo 12/21/2023 12:34:44 12/09/19 24 plain X-ray of chest completed [facility], L.L.CJacobo 12/12/2023 10:16:37 12/05/19 24 plain X-ray of chest completed [facility], L.LJacoboCJacobo 12/06/2023 13:24:46 11/28/19 24 cardiac catheterization completed [facility], L.L.CJacobo 12/06/2023 13:11:07 11/28/19 24 imaging guided percutaneous transluminal angioplasty of coronary artery with contrast completed [facility], LJacoboLJacoboCJacobo 10/05/2024 10:22:55 11/27/19 24 plain X-ray of chest completed [facility], DonteLSanju 11/28/2023 10:19:35 10/24/19 24 imaging guided percutaneous transluminal angioplasty of coronary artery with contrast completed [facility] 10/05/2024 10:22:32 10/16/19 24 imaging guided percutaneous transluminal angioplasty of coronary artery with contrast completed [facility] 10/05/2024 10:22:12 10/07/19 24 plain X-ray of chest completed [facility], L.L.CJacobo 10/08/2023 17:52:40 09/20/19 24 echocardiography completed [facility] 09/26/2023 12:48:56 lobectomy of lung completed [facility], LJacoboL.CJacobo 10/10/2023 12:32:47 amputation completed [facility] 08/24/2024 12:24:04 cholecystectomy completed [facility], L.L.CJacobo 09/13/2024 14:49:22 Imaging Results None recorded. Procedure Notes None recorded. Medical Equipment None Reported. Allergies Allergen ID Allergen Name Allergen Category Reaction Reaction Severity Criticality Documentation Date Start Date Code Code System Note Provider Name and Address Organization Details Recorded Time 19306 acetamino phen medicatio n abdominal pain moderate low 01/19/20232021 161 RxNorm GI upset /into leran ce Anhlilly coles, [facility] 4 07:57:42 05181 acetamino phen medicatio n Not available Not available Not available 02/21/20242023 161 RxNorm ELIZABETH HOUSER, [address], [address], [facility] 5 12:00:53 57457 ranolazin e medicatio n Not available Not available Not available 04/14/2025 85877 RxNorm Hallu cinat ions XIMENA RISHABH coles, [facility] 5 11:33:58 Medications Name Sig Start Date Stop Date [...] Not Available atorvasta tin 40 mg tablet Take 1 tablet by mouth once daily 2024 active Not Available Not Available Not Avai lable carvedilo l 25 mg tablet TAKE 1 [...] 30 mg tablet,ex tended release 24 hr TAKE 1 TABLET BY MOUTH ONCE DAILY active Not Available Not Available No t Available dexametha sone 6 mg tablet TAKE [...] Not Available Not Available Not Avai lable tramadol 50 mg tablet Take 1 tablet twice a day by oral route as needed. 2024 active Not Available Not Available Not [...] her to decrease to 100mg TID followin [facility], 02/27 and 02/28 Not Available Not [...] 2 % topical ointment APPLY A SMALL AMOUTN OF OINTMENT TOPICALL Y TO AFFECTED AREA THREE TIMES DAILY 2024 active Not Available Not Available Not Avai lable furosemid e 20 mg tablet TAKE 1 TABLET BY MOUTH ONCE DAILY 10/09 completed Not Available Not Available Not Available gabapenti n 100 mg capsule TAKE 1 CAPSULE BY MOUTH THREE TIMES DAILY active Not Available Not Available No t Available metoprolo l succinate ER 25 mg [...] times per day 10/09 completed VO CH/jl; 07389; Recorded 05/14/20 19 10:02AM by Leydi Jessica [...] Updated DateTime 5 152.4 cm 25.8 kg/m2 89850.1 9 g 95 % 95 % 70 /min 18 /min 150/80 mm[Hg] XIMENA KEATING [facility], .LJacoboJacobo 5 10:11:17 Date Recorded Body height Body mass index (BMI) Body weight Oxygen saturation Oxygen saturation in Arterial blood by Pulse oximetry Heart rate Respiratory rate Systolic And Diastolic Provider Name and Address Organization Details Last Updated DateTime 5 152.4 cm 26.6 kg/m2 62146.5 6 g 95 % 95 % 76 /min 20 /min 138/82 mm[Hg] XIMENA KEATING [facility] 5 12:04:30 Date Recorded Body height Body mass index (BMI) Body weight Oxygen saturation Oxygen saturation in Arterial blood by Pulse oximetry Heart rate Respiratory rate Body temperature Systolic And Diastolic Provider Name and Address Organization Details Last Updated DateTime 5 152.4 cm 26.8 kg/m2 61151.1 5 g 97 % 97 % 72 /min 18 /min 98 [degF] 120/70 mm[Hg] BRANDON RIVERA [facility] 5 12:37:22 Date Recorded Body height Body mass index (BMI) Body weight Oxygen saturation Oxygen saturation in Arterial blood by Pulse oximetry Heart rate Respiratory rate Systolic And Diastolic Provider Name and Address Organization Details Last Updated DateTime 5 152.4 cm 27.7 kg/m2 73943.1 2 g 98 % 98 % 78 /min 18 /min 158/82 mm[Hg] XIMENA KEATING [facility] 5 11:21:53 Date Recorded Body height Body mass index (BMI) Body weight Oxygen saturation Oxygen saturation in Arterial blood by Pulse oximetry Heart rate Respiratory rate Systolic And Diastolic Systolic And Diastolic Provider Name and Address Organization Details Last Updated DateTime 5 152.4 cm 27.7 kg/m2 73413.1 2 g 99 % 99 % 88 /min 18 /min 166/108 mm[Hg] 158/98 mm[Hg] XIMENA KEATING [facility] 5 11:38:18 Social History Question Answer Notes LastModified by Organizat ion Details LastModified Time Tobacco Smoking Status Former Smoker [facility] 07/2023 [facility]23 12:30:16 What Type Of Diet Are You Following? REGULAR [email or web address] Information not available 12/24/2023 Which Illicit Or Recreational Drugs Have You Used? Smokes Meth [email or web address] Information not available 10/10/2023 When Did You Quit Smoking? 1-5yearssin [email or web address] herrerate Information not available 12/24/2023 What Was The Date Of Your Most Recent Tobacco Screening? 12/24/2023 Information not available 12/24/2023 What Is Your Current Pack Years? 20-29packye ars Information not available 12/24/2023 What Is Your Relationship Status? Single [email or web address] Information not available 12/24/2023 At What Age [...] or recreational drugs? Yes Quit Meth 07/2023 [email or web address] Information not available 12/24/2023 Do you or have you ever used any other forms of tobacco or nicotine? No Information not available 12/24/2023 What is your level of alcohol consumption? None [email or web address] Information not available 10/10/2023 Are you currently employed? No disabled [email or web address] Information not available 10/10/2023 Are you able to walk independently without assistance or assistive devices? YESASSIST [email or web address] Information not available 10/10/2023 Are you able to care for yourself independently? No Mother is her caregiver. Information not available 10/10/2023 Do you or have you ever used any nicotine-free cigarettes, vape, or chewing tobacco? No Information not available 12/24/2023 Mental Status None recorded. Family History Relationship Description Onset Age of this Age Resolved Age Notes LastModified by Organization Details LastModified Time Mother Myocardial infarction In her 50's [email or web address] Not available 12/29/2023 23:44:26 Mother Rheumatoid arthritis [email or web address] Not available 12/28 23:44:44 Brother Acute lymphoid leukemia [email or web address] Not available 10/18 18:24:23 Medical History Condition [...] pneumococcal polysaccharide PPV23 8 completed SUZANNE HEATON [address] [place] [address], [address], [facility] 12:51:09 Past Encounters Encounter ID Performer Location Encounter Start Date Encounter Closed Date Diagnosis/Indication Diagnosis SNOMED-CT Code Diagnosis ICD10 Code Diagnosis IMO Codes Diagnosis Note [id number] SUZANNE HEATON [facility] ([facility]) [address] [place] [address] 10/10/2023 11:29:12 10/10/2023 13:24:32 Uncontrolled type 1 diabetes mellitus 519062052 E10.[address] Ortega. End stage renal failure on dialysis 708871502 Z99.2 MWF dialysis. Multi vess el coronary artery disease 638625866 I25.10 Following with cardiology in [facility] Essential hypertension 97163578 I10 Coronary arteriosclerosis 95259434 I25.10 Follows with cardiology in [facility]. [id number] Matthew Packer DO [facility] ([facility]) [address] [place] [address] 12/02/2023 12:01:39 12/02/2023 13:56:02 Dental abscess 446718863 K04.7 Will start patient on lower dose amoxicilli n due to her hemodialys is status. Counseled patient that it is imperative that she see and be evaluated by a dentist in the next 2 to 4 weeks. [id number] SUZANNE HEATON [facility] ([facility]) [address] [place] [address] [place] [address] 12/24/2023 11:37:48 12/24/2023 14:35:44 Mixed anxiety and depressive disorder 936629414 F41.8 Essential hypertension 55133171 I10 Starting Nifedipine today. Type 1 mainor betes mellitus 99921239 E10.[address] Ortega. Pain in bi lateral legs 3783025617 6540290 M79.604 M79.605 Patient reports she took some of her mom's in the past and it was helpful. End stage renal failure on dialysis 848795412 Z99.2 MWF dialysis. [id number] ELIZABETH HOUSER [facility] ([facility]) [address] [place] [address] 01/07/2024 15:11:38 01/07/2024 17:49:26 Edema 325012332 R60.9 Non-pittin g lower extremity. Chest pain 04170128 R07. 9 Recurrent. Following with cardiology . Blood pres sure outside reference range 87956337 Z01.31 Will half dose of nifedipine until she is seen with cardiology . [id number] SUZANNE HEATON [facility] ([facility]) [address] [place] [address] 02/21/2024 11:42:22 02/21/2024 12:51:01 End-stage renal disease 13479982 N18.6 Continue dialysis. Essential hypertension 69044114 I10 Blood pressure good today. Continue current meds. Uncontroll ed type 1 diabetes mellitus 115976195 E10.65 Continue to follow with Dr. Ortega. Mixed anxi ety and depressive disorder 362270507 F41.8 [id number] SUZANNE HEATON [facility] ([facility]) [address] [place] [address] 04/01/2024 13:47:35 04/01/2024 15:21:12 Essential hypertension 69031524 I10 Monitor at home. Follow-up with cardiology . Uncontroll ed type 1 diabetes mellitus 516893728 E10.65 Continue to follow with Dr. Ortega. [facility] ion care management 541819042 Z30.9 Has a Nexplanon in her left arm, has not been changed for 12 years per patient Chronic low back pain 27 3675765 M54.50 Would like to see about prescripti on for Tramadol. 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 Congestive heart failure 29691575 I50.9 Follows with Cardiology . Chronic ob structive pulmonary disease 18018673 J44.9 Uses Breo. Secondary hyperaldosteronism 57803722 E26.1 Currently on dialysis. Angina pectoris 71930840 0 I20.9 Follows with cardiology , has nitrostat, recent stent. Amputated toe 570176979 Z89.429 Follows with podiatry. Chronic re current major depressive disorder 4033018 F33.1 Continue Lexapro. [id number] ELIZABETH HOUSER [employer] [facility] ([facility]) [address] [place] [id number] 05/01/2024 11:41:02 05/01/2024 13:20:39 Chronic chest pain 3485795383 44588 R07.9 Encouraged her mother to contact cardiology for follow-up. Essential hypertension 25799061 I10 Monitor at home. Restart Coreg. Abnormal vision 4090947 H54.7 [id number] SUZANNE HEATON [facility] ([facility]) [address] [place] [address] 07/01/2024 13:56:52 07/01/2024 15:11:16 Essential hypertension 95893632 I10 Blood pressure this am was 125/80. Type 1 mainor betes mellitus 79174503 E10.[address] Ortega. Mixed anxi ety and depressive disorder 461430618 F41.8 Swelling of lower leg 44 3025582 R22.40 Hypoxemic respiratory failure 9472912309 0420000 J96.91 Uses oxygen at home as needed. 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 Depressive disorder 3548 9007 F33.1 Continue escitalopr am. 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 Congestive heart failure 21985421 I50.9 I50.30 Follows with Cardiology . Chronic ki dney disease stage 5 [id number] N18.5 Z99.2 Currently on dialysis. Amputated toe 628654271 Z89.429 Follows with podiatry. Low back pain 283365275 M54.50 Gabapentin . Hypertensi ve heart and renal disease with (congestive) heart failure 699077965 I13.2 Follows with Cardiology . Chronic ob structive pulmonary disease 81158911 J44.9 Uses Breo. Chronic ki dney disease due to type 2 diabetes mellitus 3827988248 08 N18.6 Currently on dialysis. [id number] SUZANNE HEATON [facility] ([facility]) [address] [place] [address] [phone] 5 09/16/2024 09:15:48 09/16/2024 11:21:40 Coronary arteriosclerosis 93095932 I25.10 Recent stent placement. Anemia 385550862 D64.9 Acute supp urative otitis media without spontaneous rupture of ear drum 73658326 H66.001 Pain in bi lateral legs 4017366648 0365929 M79.604 M79.605 She has been taking 100mg three times daily but feels like it needs to be increased. [id number] SUZANNE HEATON [facility] ([facility]) [address] [place] [address] 72981-539 5 10/05/2024 10:02:53 10/05/2024 11:11:59 Coronary atherosclerosis 168001156 I25.10 She has 8 stents now. Mixed anxi ety and depressive disorder 349719770 F41.8 She has been having vivid dreams lately revolving around her brother who recently as well as her daughter who . Hospital i npatient stay within past 30 days [id number] 106 Z76.89 [id number] SUZANNE HEATON [facility] ([facility]) [address] [place] [address] 62922-308 5 11/27/2024 09:57:25 11/27/2024 10:57:38 Essential hypertension 45877299 I10 Blood pressure this am was 179/112 at home, in office is 150/80. Afternoon readings have been good. Type 1 mainor betes mellitus 48116419 E10.[address] Ortega. Pain in bi lateral legs 7169626870 0126111 M79.604 M79.605 Anxiety 43692824 F41.8 1098923 Unable to lay still for MRI. Will send in clonazepam to take prior to procedure. [id number] SUZANNE HEATON [facility] ([facility]) [address] [place] [address] [phone] 5 01/06/2025 11:45:44 01/06/2025 13:58:55 Chronic chest pain 5063690911 40885 R07.9 G89.29 603947 Chronic ki dney disease stage 5 079290109 N18.5 Z99.2 Currently on dialysis. Coronary arteriosclerosis 23843710 I25.10 Recent stent placement. Follow-up with cardiology next week. Will discuss chest pain with them as well. [id number] SUZANNE HEATON [facility] ([facility]) [address] [place] [address] [phone] 5 03/03/2025 12:06:42 03/03/2025 14:00:46 Neuropathy due to diabetes mellitus 487060292 E11.40 Decrease gabapentin to 100mg three times daily. Chronic renal failure 90 773968 N18.5 67731097 Dialysis. Hyperkalemia 92808695 E8 7.5 9805 Labs checked yesterday at Dialysis. Atypical chest pain 1025 44080 R07.89 178397 Recurrent. Following with cardiology . Recently started Isosorbide . History of abnormal cervical Papanicolaou smear 614440283 Z87.42 7665939 [id number] SUZANNE HEATON [facility] ([facility]) [address] [place] [address] [phone] 5 03/31/2025 10:56:17 03/31/2025 12:04:26 Chronic chest pain 1291229144 95493 R07.9 G89.29 011840 Spasm 77492096 M62.838 Pain in bi lateral legs 3409662842 2418871 M79.604 M79.605 Site-speci fic infective disorders of skin 754945173 L08.9 30661 right index finger Chronic pain syndrome 37 3527935 G89.4 51383 Gabapentin . [id number] SUZANNE HEATON [facility] ([facility]) [address] [place] [address] 04/14/2025 11:22:24 04/14/2025 14:24:51 Chronic chest pain 2481870372 96266 R07.9 G89.29 945302 Essential hypertension 52283651 I10 16136 Took her blood pressure medication about an hour ago. Pressure at home has been pretty good. Type 1 mainor betes mellitus 51901675 E10.[address] Ortega. Will schedule pump training with patient on a MWF. Will have worldwide chief creative officer set up a time where she can use an exam room here. Health Concerns Section Related Observation LastModified by Organization Detai ls LastModified Time None Recorded Concern Status LastModified by Organization Details LastModified Time None Recorded Advance Directives Directive None Recorded Payers Insurance Date Sequence Insurance Name Policy Number Policy Varela Covered Member ID Varela Member ID Guarantor Name 03/28/2025 [place] - [facility] (MEDICARE) Donita Aguilar [id number] Donita Aguilar 03/28/2025 [place] [facility] ([facility] Donita Aguilar [id number] Donita Aguilar 03/28/2025 2 [place] Dontia Aguilar [id number] Donita Aguilar 03/28/2025 1 [place] [facility] Donita Aguilar [id number] Donita Aguilar 12/07/2024 1 [facility] (MEDICAID REPLACEMENT - HMO) [facility] Donita Aguilar [id number] Donita Aguilar Notes Date Note Type Note Provider Name and Address Organization Details Recorded Time 5 text/htm l DiabetesReported by PatientHPIFor duration, [...] reportsmyocardial infarction,end-stage renal disease, anddiabetes. ELIZABETH HOUSER, SUZANNE [address] [place], [address], [facility] 11/27/2024 11:31:59 5 text/htm l Angina/Chest PainReported by PatientHPIFor quality, patient reportssqueezingandsoreness. For location, patient reportsmidsternal. For severity, patient reportsmoderate. SUZANNE HEATON [address] [place], [address], [facility] 01/06/2025 12:54:30 5 text/htm l DyspneaReported [...] gabapentin lowered back to 100mg. ELIZABETH HOUSER, SUZANNE [address] [place], [address], [facility] 03/03/2025 13:06:19 5 text/htm l Angina/Chest PainReported by PatientHPIFor quality, patient reportsheaviness. For context, patient reportsat rest. For severity, patient reportsmoderate. For onset/timing, patient reportshas noted for yearsandintermittent. For alleviating factors, patient reportsnitroglycerinandrest. ELIZABETH HOUSER, [facility] [address] [place], [address], [facility], Billie 03/31/2025 17:08:26 5 text/htm l DyspneaReported by PatientHPIFor quality, patient reportssqueezing,tightness,p ressure,can't catch breath,breathlessness,inabil ity to take a deep breath, andhurts to breathe. For associated symptoms, patient reportsfever,chills,weakness ,hoarseness, anddecrease in exercise capacity. For severity, patient reportsmoderateandlimits activity. For duration, patient reportsfor 2 weeks. For onset/timing, patient reportswith exertion. For pulmonary disease history, patient reportshistory of pulmonary disease. ELIZABETH HOUSER, [facility] [address] [place], [address], [facility] [place], [place]ie 04/14/2025 14:09:54 OBGyn Episode No OBEpisode recorded.
--- OUTSIDE RECORDS SUMMARY | 2025-04-22 09:07 | XMS_ITS | Clinical Summary ---
Author Organization [employer] Address [address] Attn: [place] [address] Care Team Providers Care Industrial Technician Name Role Phone Shravan Jones DO Primary Care Provider [phone] Allergies Active Allergy Reactions Criticality Noted Date [...] subcutaneous injection. Active naloxone (NARCAN) 4 mg/spray [place], Non-Aerosol EMERGENCY USE ONLY: Administer 1 spray [...] for dialysis for ESRD ([facility]) Take 1 Tablet (5 mg) by [...] troponin 09/22/2023 Coronary artery disease invo lving [place] coronary artery of [place] heart without angina pectoris 09/21/2023 End [...] Date Type Department Care Team Description 04/20/2025 External Device Data STL ABSTRACTION [...] and Family Not on file 09/22/2023 Attends Denominational Services Not on file 09/21 Active Member [...] on file Legal Sex Female 3:34 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 [place] [address] Abel Menon DO [address] [place] [address] Health Maintenance Due Date Last [...] 10/11/1999, 09/06/1999 Medical Devices Implanted Type Area Printed Circuit Boards Inspector Device Identifier Shelf Expiration Date Model / Serial / Lot Max 1gm Flour [id number] - [id number] Implanted:Qty : 2 on 12/17/2016 by Deandre Alan MD Biological Left: Lung CR BARD[employer]OL INC 09/19/2019 [id number] / / [id number] Cath Dialysis Glidepath 14.5fr 24cm Std [id number] - [id number] Implanted:Qty : 1 on 03/18/2024 by Asif Mcclellan MD at [facility] Catheter Right: Chest BARD ANGEL VASC 09/21/2025 [id number] / / [id number] Clip Ligating Horizon Red 762784 - Csc - [id number] Implanted:Qty : 1 on 08/10/2024 by Chato Fitch MD at [facility] Clip Left: Arm TELE[employer]LEX INC [id number] 05/16/2029 946651 / / [id number] Clip Ligating Horizon Med Ti 883395 - Csc - [id number] Implanted:Qty : 1 on 08/10/2024 by Chato Fitch MD at [facility] Clip Left: Arm TELEFLEX- WECK CLOSURE SYS [id number] 03/31/2029 [id number] / / [id number] Gas Regulator Repairer Ligaclip Sml Mcs20 - [id number] Implanted:Qty : 1 on 08/10/2024 by Chato Fitch MD at [facility] Clip Left: Arm J&J- ETHICON ENDO[employer]SURGERY [employer] [id number] 03/23/2029 MCS20 / / [id number] Closure Perclose Prostyle Sut Mediate 88661-14 - [id number] Implanted:Qty : 1 on 09/24/2023 by Janell Beauchamp MD at [facility] Closure Device N/A: Groin LOVE- VASC DEVICE [id number] 06/23/2025 86982-42 / / [id number] Closure Perclose Prostyle Sut Mediate 14763-62 - [id number] Implanted:Qty : 1 on 10/24/2023 by Janell Beauchamp MD at [facility] Closure Device Right: Groin LOVE- VASC DEVICE [id number] 07/24/2025 66233-66 / / [id number] Oil Slc 8.5ml [id number] - [id number]:[id number] Implanted:Qty : 1 on 06/23/2024 by Janey Carrera MD at [facility] Eye Right: Eye YIAN LAB 12/21/2026 [id number] / [id number] / [id number] Graft Vasc Propaten 4-9xvt62px [id number] - [id number] Implanted:Qty : 1 on 08/10/2024 by Chato Fitch MD at [facility] Graft Left: Arm [employer] [id number] 05/21/2027 [id number] / [id number] / Agent Hemostat Surgicel 2x3in 1952s - [id number] Implanted:Qty : 1 on 08/10/2024 by Chato Fitch MD at [facility] Hemostatic Left: Arm J&J- ETHICON INC [id number] 12/21/20281952S / / [id number] Hemostatic Surgiflo 8ml W/ Thrombin 2994 - [id number] Implanted:Qty : 1 on 08/10/2024 by Chato Fitch MD at [facility] Hemostatic Left: Arm J&J- ETHICON INC [id number] 10/21/2025 2994 / / [id number] Agent Hemostat Surgicel 2x3in 1952s - [id number] Implanted:Qty : 1 on 08/10/2024 by Chato Fitch MD at [facility] Hemostatic Left: Arm J&J- ETHICON INC [id number] 12/21/20281952S / / [id number] Stent Synergy Xd 3.0x48mm Evrlms Elut [id number] 0 - [id number] Implanted:Qty : 1 on 09/24/2023 by Janell Beauchamp MD at [facility] Stent N/A: Coronary [employer] [id number] 03/31/2025 [id number] 300 / / [id number] Stent Synergy Xd 2.16j87pa Evrlms Elut [id number] 0 - [id number] Implanted:Qty : 1 on 10/24/2023 by Janell Beauchamp MD at [facility] Stent Left: Coronary [employer] [id number] 08/19/2024 [id number] 220 / / [id number] Control Implant Funmi Procedures Procedure Name Priority Date/Time Associated Diagnosis Comments LIPID PANEL Routine 09/21/2023 6:47 PM CDT HEMOGLOBIN A1C Routine 09/21/2023 6:46 PM CDT from Last 3 Months or Most Recently Relevant to Health Maintenance Results * (ABNORMAL) LIPID PANEL (09/21/2023 6:47 PM CDT) CHOLESTEROL 96 <200 mg/dL 09/21/2023 10:29 PM CDT [facility] TRIGLYCERIDE 164(H) <150 mg/dL 09/21/2023 10:29 PM CDT [facility] HDL 36(L) 40 - 59 mg/dL 09/21/2023 10:29 PM CDT [facility] LDL CALCULATED 27 <100 mg/dL 09/21/2023 10:29 PM CDT [facility] NON-HDL CHOLESTEROL 60 <130 mg/dL 09/21/2023 10:29 PM CDT [facility] Blood Venipuncture / Unknown 09/21/2023 6:47 PM CDT 09/21/2023 7:10 PM CDT Narrative [facility] - 09/21/2023 10:29 PM CDT TOTAL CHOLESTEROL [...] Lacy MD CHEMISTRY ORDERABLES Final R esult [facility] CLIA # [id number] [address] [place] [address] * (ABNORMAL) HEMOGLOBIN A1C (09/21/2023 6:46 PM CDT) HEMOGLOBIN A1C 6.8(H) <=5.6 % 09/23/2023 9:24 AM CDT [facility] EST. AVG GLUCOSE, A1C 148 mg/dL 09/23/2023 9:24 AM CDT [facility] Blood Venipuncture / Unknown 09/21/2023 6:46 PM CDT 09/21/2023 7:08 PM CDT Narrative [facility] - 09/23/2023 9:24 AM CDT HGB A1C INTERPRETATION NORMAL: <5.7% PRE-DIABETES: 5.7 - 6.4% DIABETES: 6.5% OR GREATER Luiz Lacy MD CHEMISTRY ORDERABLES Final R esult [facility] CLIA # [id number] [address] [address] from Last 3 Months or Most Recently Relevant to Health Maintenance Insurance [place]ICAID [place] PART A AND B Advance Directives For more information, please contact: [phone] * Full Code (Latest Code Status on File) Date Activated Date Inactivated Comments 10/24/2023 2:34 PM 10/25/2023 11:47 AM * Full Code Date Activated Date Inactivated Comments 10/24/2023 9:13 AM 10/24/2023 2:34 PM * Full Code Date Activated Date Inactivated Comments 09/24/2023 3:14 PM 09/25/2023 9:51 PM * Full Code Date Activated Date Inactivated Comments 09/21/2023 5:50 PM 09/24/2023 3:14 PM Care Teams Industrial Technician Relationship Specialty Start Date End Date Shravan Jones DO PCP - General Family Practice 12/04/16
--- NOTE | 2025-04-22 09:08 | PC.NURSE ---
PT GIVEN 324MG PO ASPIRIN EN ROUTE VIA EMS.
--- OUTSIDE RECORDS SUMMARY | 2025-04-22 09:08 | XMS_ITS | Encounter Summary ---
Author Organization [facility] Address [address] [place] [address] Care Team Providers Care Thermit Welding Machine Operator Name Role Phone Shravan Jones DO Primary Care Provider Encounter Details Date Type Department Care Team (Late st Contact Info) Description 12/28/2016 Lab Requisition [facility] [address] [place] [address] David Ortega MD [address] [place] [address] Social History Tobacco Use Types Packs/Day Years Used Date Smoking Tobacco: Every Day Cigarettes Comments:pt lethargic Comments Unknown Sex and Gender Information Value Date Recorded Sex Assigned at Not on file 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 Gender Identity Not on file Sexual [...] * PHOSPHORUS (12/28/2016 2:39 AM CDT) Pathologist [facility] PHOSPHORUS 3.4 2.5 - 4.9 mg/dL 12/28/2016 5:42 AM CDT [facility] Blood Collection / Unknown 12/28/2016 2:39 AM CDT 12/28/2016 5:01 AM CDT David Ortega MD CHEMISTRY ORDERABLES Final Res ult Performing Organization Address [facility] Co de Phone Number [facility] CLIA# [id number] [address] [place] [address] [id number] * MAGNESIUM LEVEL (12/28/2016 2:39 AM CDT) [facility] MAGNESIUM 1.6 1.6 - 2.6 mg/dL 12/28/2016 5:42 AM CDT [facility] Blood Collection / Unknown 12/28/2016 2:39 AM CDT 12/28/2016 5:01 AM CDT Narrative [facility] - 12/28/2016 5:42 AM CDT Due to Plastic Battery Assembler update, MG+ reference range has changed from 1.8 - 2.4 mg/dL to the new reference range of 1.6 - 2.6 mg/dL. This will have limited patient impact. David Ortega MD CHEMISTRY ORDERABLES Final Res ult Performing Organization Address [facility] Co de Phone Number [facility] CLIA# [id number] [address] [place] [address] * PROTIME-INR (12/28/2016 2:39 AM CDT) [facility] PROTIME 15.0 12.3 - 15.5 Seconds 12/28/2016 5:16 AM CDT [facility] INR 1.1 0.8 - 1.2 12/28/2016 5:16 AM CDT [facility] Blood Collection / Unknown 12/28/2016 2:39 AM CDT 12/28/2016 5:01 AM CDT [place] [facility] - 12/28/2016 5:16 AM CDT Expected Values [...] HEMATOLOGY ORDERABLES Final Re sult [facility] CLIA# [id number] [address] [place] [address] * (ABNORMAL) PTT (12/28/2016 2:39 AM CDT) PTT 39.1(H) 24.8 - 38.8 seconds 12/28/2016 5:16 AM CDT [facility] Blood Collection / Unknown 12/28/2016 2:39 AM CDT 12/28/2016 5:01 AM CDT [place] [facility] - 12/28/2016 5:16 AM CDT Therapeutic Range: Hi-level PE/DVT heparin protocol 80.1 - 95.0 sec Lo-level PE/DVT heparin protocol 70.1 - 85.0 sec Cardiac Heparin Protocol 70.1 - 100.0 sec David Ortega MD HEMATOLOGY ORDERABLES Final Re sult [facility] CLIA# [id number] [facility] [place] [address] * (ABNORMAL) CBC WITH DIFFERENTIAL (12/28/2016 2:39 AM CDT) Pathologist [facility] WBC 11.0 4.5 - 11.0 K/uL 12/28/2016 5:09 AM CDT [facility] RBC 3.80(L) 4.20 - 5.40 M/uL 12/28/2016 5:09 AM CDT [facility] HEMOGLOBIN 9.3(L) 12.0 - 16.0 g/dL 12/28/2016 5:09 [facility] 30.6(L) 36.0 - 46.0 % 12/28/2016 5:09 AM CDT [facility] MCV 80.5(L) 84.0 - 103.0 fL 12/28/2016 5:09 AM CDT [facility] MCH 24.5(L) 27.0 - 34.0 pg 12/28/2016 5:09 AM CDT [facility] MCHC 30.4 30.0 - 35.0 g/dL 12/28/2016 5:09 AM CDT [facility] RDW 17.3(H) 11.0 - 14.5 % 12/28/2016 5:09 AM T [facility] RDW-STDEV 51.8 37.0 - 54.0 fL 12/28/2016 5:09 AM CDT [facility] PLATELETS 757(H) 140 - 440 K/uL 12/28/2016 5:09 AM CDT [facility] MPV 8.9 8.9 - 12.8 fL 12/28/2016 5:09 AM CDT [facility] NEUTROPHILS 65 42 - 75 % 12/28/2016 5:09 AM CDT [facility] LYMPHOCYTES 19(L) 24 - 44 % 12/28/2016 5:09 AM CDT [facility] MONOCYTES 10 2 - 10 % 12/28/2016 5:09 AM CDT [facility] EOSINOPHILS 5 0 - 7 % 12/28/2016 5:09 AM CDT [facility] BASOPHILS 1 0 - 1 % 12/28/2016 5:09 AM CDT [facility] IMMATURE GRANULOCYTES 1 0 - 2 % 12/28/2016 5:09 AM CDT [facility] NEUTROPHIL ABSOLUTE 7.19 2.00 - 8.00 K/uL 12/28/2016 5:09 AM CDT [facility] LYMPHOCYTE ABSOLUTE 2.04 1.20 - 4.00 K/uL 12/28/2016 5:09 AM CDT [facility] MONOCYTE ABSOLUTE 1.06(H) 0.10 - 0.60 K/uL 12/28/2016 5:09 AM CDT [facility] EOSINOPHIL ABSOLUTE 0.60 0.00 - 0.70 K/uL 12/28/2016 5:09 AM CDT [facility] BASOPHILS ABSOLUTE 0.07 0.00 - 0.20 K/uL 12/28/2016 5:09 AM CDT [facility] IMMATURE GRANULOCYTES ABSOLUTE 0.07 0.00 - 0.10 K/uL 12/28/2016 5:09 AM T [facility] Blood Collection / Unknown 12/28/2016 2:39 AM CDT 12/28/2016 5:01 AM CDT us David Ortega MD HEMATOLOGY ORDERABLES Final Re sult [facility] CLIA# [id number] [address] [place] [address] * (ABNORMAL) COMPREHENSIVE METABOLIC PANEL (12/28/2016 2:39 AM CDT) SODIUM 143 136 - 145 mmol/L 12/28/2016 5:47 AM CDT [facility] POTASSIUM 3.3(L) 3.5 - 5.1 mmol/L 12/28/2016 5:47 AM [facility] CHLORIDE 103 98 - 107 mmol/L 12/28/2016 5:47 AM [facility] CO2 29 21 - 32 mmol/L 12/28/2016 5:47 AM [facility] CALCIUM 8.9 8.4 - 10.1 mg/dL 12/28/2016 5:47 AM [facility] BUN 13 7 - 17 mg/dL 12/28/2016 5:47 AM [facility] CREATININE 0.70 0.55 - 1.02 mg/dL 12/28/2016 5:47 AM [facility] GLUCOSE 46(LL) 74 - 106 mg/dL 12/28/2016 5:47 AM [facility] TOTAL PROTEIN 8.2 6.4 - 8.2 g/dL 12/28/2016 5:47 AM [facility] ALBUMIN 1.8(L) 3.4 - 5.0 g/dL 12/28/2016 5:47 AM [facility] BILIRUBIN TOTAL 0.2 0.2 - 1.0 mg/dL 12/28/2016 5:47 AM [facility] ALKALINE PHOSPHATASE 93 25 - 100 U/L 12/28/2016 5:47 AM [facility] AST 18 15 - 37 U/L 12/28/2016 5:47 AM [facility] ALT 18 13 - 61 U/L 12/28/2016 5:47 AM [facility] GFR >60 >=60 mL/min/1.7 3 sq meter 12/28/2016 5:47 AM [facility] Comment: eGFR has not [...] sq meter 12/28/2016 5:47 AM CDT [facility] ANION GAP 11 4 - 30 mmol/L 12/28/2016 5:47 AM CDT [facility] Blood Collection / Unknown 12/28/2016 2:39 AM CDT 12/28/2016 5:01 AM CDT us David Ortega MD CHEMISTRY ORDERABLES Final Res ult [facility] CLIA# [id number] [address] [place] [address] documented in this encounter Visit Diagnoses Not on filedocumented in this encounter Care Teams Thermit Welding Machine Operator Relationship Specialty Start Date End Date Shravan Jones DO PCP - General Family Practice 12/04/16 documented as of this encounter
--- OUTSIDE RECORDS SUMMARY | 2025-04-22 09:08 | XMS_ITS | Encounter Summary ---
Author Organization [facility] Address [address] [place] [address] Care Team Providers Care Probation And Parole Officer Name Role Phone Shravan Jones DO Primary Care Provider [phone] Encounter Details Date Type Department Care Team (Late st Contact Info) Description 01/07/2017 Lab Requisition [facility] Laboratory Services [address] [place] [address] Izabela Diamond MD NO ADDRESS ON FILE Social History Tobacco Use Types Packs/Day Years Used Date Smoking Tobacco: Every Day Cigarettes Comments:pt lethargic Comments Unknown Sex and Gender Information Value Date Recorded Sex Assigned at Not on file 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 Blood 01/07/2017 2:23 AM CDT 01/07/2017 5:01 AM CDT Izabela Diamond MD CHEMISTRY ORDERABLES Final Res ult Performing Organization Address City/[facility]/ZIP Co de Phone Number [facility] CLIA# [id number] [address] [place] [address] * (ABNORMAL) C-REACTIVE PROTEIN (01/07/2017 2:23 AM CDT) CRP 16.6(H) 0.0 - 2.9 mg/L 01/07/2017 5:[address] [facility] Blood 01/07/2017 2:23 AM CDT 01/07/2017 5:01 AM CDT Izabela Diamond MD CHEMISTRY ORDERABLES Final Res ult Performing Organization Address [facility] Co de Phone Number [facility] CLIA# [id number] [address] [place] [phone] * (ABNORMAL) BASIC METABOLIC PANEL (01/07/2017 2:23 AM CDT) SODIUM 139 136 - 145 mmol/L 01/07/2017 5:[address] [facility] [employer] [facility] POTASSIUM 4.1 3.5 - 5.1 mmol/L 01/07/2017 5:[address] [facility] [employer] [facility] CHLORIDE 104 98 - 107 mmol/L 01/07/2017 5:[address] [facility] [employer] [facility] CO2 26 21 - 32 mmol/L 01/07/2017 5:[address] [facility] [employer] [facility] CALCIUM 9.1 8.4 - 10.1 mg/dL 01/07/2017 5:[address] [facility] [employer] [facility] BUN 14 7 - 17 mg/dL 01/07/2017 5:[address] [facility] CREATININE 0.82 0.55 - 1.02 mg/dL 01/07/2017 5:[address] [facility] GLUCOSE 274(H) 74 - 106 mg/dL 01/07/2017 5:[address] [facility] GFR >60 >=60 mL/min/1.7 3 sq meter 01/07/2017 5:[address] [facility] [...] 3 sq meter 01/07/2017 5:[address] [facility] ANION GAP 9 4 - 30 mmol/L 01/07/2017 5:27 AM [facility] Blood 01/07/2017 2:23 AM CDT 01/07/2017 5:01 AM CDT us Izabela Diamond MD CHEMISTRY ORDERABLES Final Res ult [facility] CLIA# [id number] [address] [place] [address] * (ABNORMAL) CBC WITH DIFFERENTIAL (01/07/2017 2:23 AM CDT) WBC 9.3 4.5 - 11.0 K/uL 01/07/2017 5:[address] [facility] RBC 4.19(L) 4.20 - 5.40 M/uL 01/07/2017 5:[address] [facility] HEMOGLOBIN 10.3(L) 12.0 - 16.0 g/dL 01/07/2017 5:27 AM [facility] HEMATOCRIT 33.2(L) 36.0 - 46.0 % 01/07/2017 5:27 AM [facility] MCV 79.2(L) 84.0 - 103.0 fL 01/07/2017 5:27 AM [facility] MCH 24.6(L) 27.0 - 34.0 pg 01/07/2017 5:27 AM [facility] MCHC 31.0 30.0 - 35.0 g/dL 01/07/2017 5:27 AM [facility] RDW 17.2(H) 11.0 - 14.5 % 01/07/2017 5:27 AM [facility] RDW-STDEV 49.4 37.0 - 54.0 fL 01/07/2017 5:27 AM [facility] PLATELETS 545(H) 140 - 440 K/uL 01/07/2017 5:27 AM [facility] MPV 10.2 8.9 - 12.8 fL 01/07/2017 5:27 AM [facility] NEUTROPHILS 53 42 - 75 % 01/07/2017 5:27 AM [facility] LYMPHOCYTES 26 24 - 44 % 01/07/2017 5:27 AM [facility] MONOCYTES 9 2 - 10 % 01/07/2017 5:27 AM [facility] EOSINOPHILS 11(H) 0 - 7 % 01/07/2017 5:27 AM [facility] BASOPHILS 1 0 - 1 % 01/07/2017 5:27 AM [facility] IMMATURE GRANULOCYTES 0 0 - 2 % 01/07/2017 5:27 AM [facility] NEUTROPHIL ABSOLUTE 4.88 2.00 - 8.00 K/uL 01/07/2017 5:27 AM [facility] LYMPHOCYTE ABSOLUTE 2.45 1.20 - 4.00 K/uL 01/07/2017 5:27 AM [facility] MONOCYTE ABSOLUTE 0.79(H) 0.10 - 0.60 K/uL 01/07/2017 5:[address] [facility] EOSINOPHIL ABSOLUTE 1.01(H) 0.00 - 0.70 K/uL 01/07/2017 5:[address] [facility] BASOPHILS ABSOLUTE 0.11 0.00 - 0.20 K/uL 01/07/2017 5:[address] [facility] IMMATURE GRANULOCYTES ABSOLUTE 0.04 0.00 - 0.10 K/uL 01/07/2017 5:[address] [facility] Blood 01/07/2017 2:23 AM CDT 01/07/2017 5:01 AM CDT us Izabela Diamond MD HEMATOLOGY ORDERABLES Final Re sult [facility] CLIA# [id number] [address] [place] [address] documented in this encounter Visit Diagnoses Not on filedocumented in this encounter Care Teams Probation And Parole Officer Relationship Specialty Start Date End Date Shravan Jones DO PCP - General Family Practice 12/04/16 documented as of this encounter
--- OUTSIDE RECORDS SUMMARY | 2025-04-22 09:08 | XMS_ITS | Encounter Summary ---
Author Organization [facility] Address 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 For 11/25 as she has other appts in town that day. Please call pt to reschedule. [facility] Souvenir Assembler: Patrica Barney documented in this encounter Plan of Treatment Upcoming Encounters Date Type Department Care Team (Late st Contact Info) Description 05/19/2025 9:30 AM AUDIO/VISUAL OPERATOR Office Visit [facility] [address] [place] [address] Abel Menon DO [address] [place] [phone] documented as of this encounter Visit Diagnoses Not on filedocumented in this encounter Additional Health Concerns Infection Onset Date Last Indicated Resolved Time R/O C. diff 07/06/2024 07/06/2024 07/06/2024 8:35 AM AUDIO/VISUAL OPERATOR documented as of this encounter Care Teams Predatory Animal Trapper Relationship Specialty Start Date End Date Shravan Jones DO PCP - General Family Practice 12/04/16 documented as of this encounter
[2025-04-22 09:23] LABS: Hematocrit 32.7 % (36-47); Hemoglobin 10.10 g/dL (11.27-16.99); Mean Corpuscular HGB Conc 30.9 g/dL (30-55); Mean Corpuscular Hemoglobin 29.4 pg (27-33); Mean Corpuscular Volume 95.1 fl (85-98); Nucleated Red Blood Cells % 0 %; Platelet Count 234 10^3/cmm (157-399); Red Blood Count 3.44 10^6/uL (3.85-5.65); White Blood Count 7.28 10^3/uL (3.29-11.43)
[2025-04-22 09:44] LABS: Alanine Aminotransferase 14 U/L (0-33); Albumin Level 4.0 g/dL (3.5-5.2); Alkaline Phosphatase 254 U/L (35-105); Aspartate Amino Transferase 14 U/L (0-32); Blood Urea Nitrogen 19 mg/dL (6-20); Calcium 8.5 mg/dL (8.5-10.5); Carbon Dioxide 25 mmol/L (22-29); Chloride 95 mmol/L (98-107); Creatinine Clr Calc Pharmacy 16.2721; Globulin 3.5 g/dL (1.3-4.6); Glucose 189 mg/dL (65-115); Osmolality Calculated 293 mOsm/kg (285-295); Sodium 138 mmol/L (136-145); Total Protein 7.5 g/dL (6.6-8.7)
[2025-04-22 09:46] LABS: Anion Gap 22.1 (5-19); Potassium 4.1 mmol/L (3.5-5.1); Troponin(5th) Baseline 150 ng/L (0-10)
[2025-04-22] MEDS: morphine 4 mg/mL SDV 1 mL IVP (10:24)
--- NOTE | 2025-04-22 11:26 | ECG_ITS ---
[facility] Test Date: 2025-04-22 Pat Name: Donita Aguilar Department: Room: Gender: Female Oracle Application Architect: : 1985 Requested By: Shravan Nick Order Number: [id number] Reading MD: JOSEFA TALLEY Measurements Intervals [place] Rate: 77 P: 48 WI: 179 QRS: -22 QRSD: 113 T: 17 QT: 397 QTc: 452 Interpretive Statements SINUS RHYTHM BORDERLINE LEFT AXIS DEVIATION [QRS AXIS < -20] MODERATE INTRAVENTRICULAR CONDUCTION DELAY [110+ ms QRS DURATION] NONSPECIFIC T-WAVE ABNORMALITY Compared to ECG 04/22/2025 08:47:59 No significant changes Electronically Signed On 04-24-2025 21:18:24 CDT by JOSEFA TALLEY [id number]
[2025-04-22] MEDS: morphine 4 mg/mL SDV 1 mL 2 MG IVP ×3 (11:45→23:45)
[2025-04-22 12:25] LABS: Troponin 5 2HR 144.3 ng/L (0-10); Troponin 5 2HR Delta -5.7 ABS# (0-10)
[2025-04-22] MEDS: nitroglycerin 1 gm/inch oint Pkt 1 INCH TOPICAL (13:37)
--- NOTE | 2025-04-22 14:45 | ECG_ITS ---
[facility] Test Date: 2025-04-22 Pat Name: Donita Aguilar Department: Room: Gender: Female Juice Standardizer: : 1985 Requested By: Shravan Nick Order Number: [id number] Reading MD: JOSEFA TALLEY Measurements Intervals [place] Rate: 75 P: 59 DC: 192 QRS: -21 QRSD: 112 T: -20 QT: 424 QTc: 475 Interpretive Statements SINUS RHYTHM POSSIBLE ANTERIOR MYOCARDIAL INFARCTION , OF INDETERMINATE AGE [30 ms Q WAVE IN V3/V4, OR R < 0.2 mV IN V4] INFERIOR MYOCARDIAL INFARCTION , OF INDETERMINATE AGE [40+ ms Q WAVE AND/OR ST/T ABNORMALITY IN II/aVF] Compared to ECG 04/22/2025 11:26:16 Myocardial infarct finding now present Intraventricular conduction delay no longer present T-wave abnormality no longer present Electronically Signed On 04-24-2025 21:18:40 CDT by JOSEFA TALLEY [id number]
--- NOTE | 2025-04-22 14:46 | PC.PHAR ---
Patient has Ranolezene on her med list fom a 04/09/25 Discharge., Patient states she is allergic .[facility] States she never picked it up .
--- NOTE | 2025-04-22 17:13 | P.CONIM_ITS ---
<Statement entered by Austin Gallegos MD - 04/26/25 19:42> Patient was evaluated and cared for in conjunction with an advanced practice practitioner. I personally examined the patient and reviewed the chart and all pertinent data including imaging, telemetry, and laboratory results. I discussed the patient in detail with the advanced practice practitioner. Please see their note for complete H&P testing result and agreed upon plan of care for the patient Providers/Reason For Consult 2 Consulting Physician/Specialty*: Dr Lizbeth Gallegos, interventional cardiology Reason for Consult*: chest pain Requesting Physician: Dr Jones Attending Physician: Bill Lagos MD Primary Care Provider: SUZANNE Dias History of Present Illness History of Present Illness Donita Aguilar is a 39 year old female with past medical history of type 1 diabetes, end-stage renal disease on hemodialysis Saturday, CAD last cath in September revealing 10% distal left main stenosis, previously placed proximal LAD stent with mild in-stent restenosis, ostial to proximal left circumflex stent no in-stent restenosis, 40% proximal RCA stenosis with distal RCA 40% in-stent restenosis. She presented to the emergency room from dialysis which was interrupted due to chest pain. It is described as substernal, feels like pressure similar to when stent was previously placed with radiation to the left neck and left upper arm. This has occurred nearly daily over the last 2 weeks since her last admission for chest pain. Duration of the pain is 10 to 15 minutes before resolving spontaneously, occurs at rest. Troponin series 150?>144-> 139. No ischemic EKG changes. She was admitted to [facility] over the weekend, she had echocardiogram and MRI of the chest. She notes fluid around her heart and a pea-sized clot in her lung . Will request records for this. No musculoskeletal tenderness, no recent coughing or illness. She is short of breath when the pain occurs. Denies nausea or vomiting. Dobutamine stress echo 02/25/2025 low likelihood of ischemia. LVEF 55 to 60% in February, mild ND and TR. Review of Systems 2 Const: Denies: fever(s), chills, change in weight, fatigue or diaphoresis Eyes: Denies: change in vision ENMT: Denies: epistaxis Card: Reports: chest pain; Denies: palpitations, irregular heart rhythm, edema, syncope, pre-syncope, dyspnea on exertion, orthopnea or leg pain with exertion Resp: Denies: dyspnea, productive cough or wheezing GI: Denies: nausea, vomiting, hematemesis, hematochezia or melena : Denies: hematuria Musc: Denies: extremity swelling Ramiro/Lymph: Denies: easy bruising or easy bleeding Medications/Allergies Home Medications ?Medication ?Instructions ?Recorded ?Confirmed ?Last Taken ?Type blood-glucose sensor (Dexcom G6 #3 ea 06/12/22 5 Unknown Rx Sensor device) blood-glucose transmitter (Dexcom #1 ea 06/12/2204/22 Unknown Rx G6 Transmitter device) blood-glucose,exhauster engineer,cont #1 ea 06/12/22 04/22/25 Un known Rx (Dexcom G6 Wool Supplier) sevelamer carbonate 800 mg tablet 800 mg PO TID #90 ta bs 09/16/23 04/22/25 04/22/25 08:00 Rx gabapentin 100 mg capsule 100 mg PO TID 12/27/2304/2204/21/25 History aspirin 81 mg tablet,delayed 81 mg PO QAM 30 days #30 tabs 03/28/24 04/22/25 04/22/25 09:00 Rx release atorvastatin 40 mg tablet 40 mg PO BEDTIME 30 days #30 tabs 03/28/24 04/22/25 04/21/25 20:00 Rx AFO brace #1 ea 04/20/24 04/22/25 Unkn own Rx diabetic shoes with 3 inserts #1 ea 04/20/24 04/22/25 Unknown Rx clopidogrel 75 mg tablet 75 mg PO DAILY 04/28/2403/2604/22/25 09:00 History amlodipine 5 mg tablet 5 mg PO DAILY #30 tabs 09/3004/22/25 04/22/25 09:00 Rx insulin aspart U-100 100 unit/mL See Rx Instructions . Route 12/28/24 04/22/25 04/21/25 Rx (3 mL) subcutaneous pen (Novolog .COMPLEX #15 mL FlexPen U-100 Insulin aspart) escitalopram oxalate 20 mg tablet 20 mg PO DAILY anxie ty 02/14/25 04/22/25 04/22/25 08:00 History folic acid 1 mg tablet 1 mg PO DAILY 02/14/2504/2204/22/25 08:00 History hydralazine 25 mg tablet 12.5 mg PO BID 02/14/2503/2604/22/25 History nitroglycerin 0.4 mg sublingual See Rx Instructions .R oute .COMPLEX 02/22/25 04/22/25 Unknown History tablet isosorbide mononitrate 30 mg 30 mg PO DAILY #30 tabs 0 02/26/25 04/22/25 04/22/25 09:00 Rx tablet,extended release 24 hr ranolazine 500 mg tablet,extended 500 mg PO BID #60 ta bs 04/09/25 04/22/25 Unknown Rx release,12 hr cyclobenzaprine 10 mg tablet 10 mg PO TID PRN MUSCLE S PASM 04/22/25 04/22/25 Unknown History tramadol 50 mg tablet 50 mg PO DAILY 04/22/2503/26 Unknown History Allergies Allergy/AdvReac Type Severity Reaction Status Date / Time acetaminophen AdvReac Mild ADR-Gastrointestinal Verified 04/07/25 19:26 Upset PFSH Acute 2 PFSH: Medical History Chest pain Diabetes mellitus HTN (hypertension) HTN (hypertension), benign Hyperkalemia Headache Accelerated hypertension Uncontrolled type 1 diabetes mellitus ESRD (end stage renal disease) Dialysis complication Hypoglycemia Hemodialysis catheter dysfunction Colitis End stage renal disease on dialysis COPD (chronic obstructive pulmonary disease) Transaminitis Intractable nausea and vomiting Hyperlipidemia CHF (congestive heart failure), NYHA class III Pulmonary hypertension CAD (coronary artery disease) Neurogenic bladder COVID-19 Tobacco dependence Drug abuse Anemia Community acquired pneumonia Esophagitis Long-term insulin use History of pancreatitis Celiac disease Recurrent UTI Non-alcoholic fatty liver disease Arnold-Chiari malformation Diabetic gastroparesis -continue Reglan Diabetic neuropathy associated with type 1 diabetes mellitus Headache, common migraine, intractable, with status migrainosus Pleural effusion 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 History of lung surgery -s/p LLL lobectomy secondary to cavitary pneumonia (2017) History of endoscopy History of cholecystectomy Family History Grandfather Diabetes Mother CAD (coronary artery disease) Diabetes Heart disease Hypertension Brother Acute lymphoblastic leukemia (ALL) in child Grandmother Thyroid disease Denies family history of Colon cancer Ovarian cancer Prostate cancer Hyperlipidemia Breast cancer Uterine cancer Stroke Social History Smoking and tobacco/nicotine status: former use of tobacco/nicotine Quit status (tobacco/nicotine): has quit using Former quit date comment: She previously smoked <1/2 PPD, quit July 2023. Second hand smoke exposure: Yes Alcohol intake: never Substance/Drug Use: current Household members: children Housing: House Marital status: Single Current occupational status: unemployed Female Reproductive History: Spontaneous abortions: No Vitals/I&O/Wt Last Vital Signs Temp 98.1 F 04/22/25 08:44 Pulse 77 04/22/25 16:44 Resp 16 04/22/25 08:44 BP 144/90 04/22/25 16:44 Pulse Ox 97 04/22/25 16:44 O2 Del Method Room Air 04/22/25 08:44 Weight last 48 hrs Weight 140 lb Physical Exam 2 Const: COMMON NORMALS: no acute distress and patient oriented x3 GENERAL APPEARANCE: cooperative and comfortable ORIENTATION/CONSCIOUSNESS: Yes awake, Yes oriented to person, Yes oriented to place and Yes oriented to time Chest: COMMONS NORMALS: normal inspection of the chest and normal palpation of entire chest wall CHEST: Yes Symmetrical chest wall rise Resp: COMMON NORMALS: normal respiratory effort, No retractions, No use of accessory muscles and clear to auscultation bilaterally EFFORT & INSPECTION: Yes symmetric chest movement AUSCULTATION: clear to auscultation bilaterally Cardio: COMMON NORMALS: regular rate, regular rhythm, S1 normal heart sound present, S2 normal heart sound present, No gallops present (Cardio), No clicks present (Cardio), No murmurs present (Cardio) and No rub (Cardio) RATE: r egular rate RHYTHM: regular rhythm HEART SOUNDS: S1 normal heart sound present and S2 normal heart sound present PERIPHERAL PULSES: radial pulses present Extremity: COMMON NORMALS: no pedal edema Neuro: COMMON NORMALS: patient oriented x3 and moves all extremities S ENSORIUM/ORIENTATION: Yes oriented to person, Yes oriented to place and Yes oriented to time Data 04/22/25 09:16 04/22/25 09:16 A&P Assessment and plan 1. CAD (coronary artery disease): 2. HTN (hypertension), benign: 3. Diastolic heart failure secondary to hypertension: 4. Chest pain: 5. Hyperlipidemia: 6. Uncontrolled type 1 diabetes mellitus: 7. End stage renal disease on dialysis: Plan: Troponins are elevated although are within her range of chronic elevation, due to ESRD. They are downtrending as well. Recommend to continue Ranexa 500 mg twice daily, amlodipine 5 mg daily. She has Nitropaste applied, can switch to nitroglycerin infusion if chest pain becomes worse. Will request records from [facility] in regards to the possible clot. Continue aspirin, Plavix, statin. Further plan will be devised based on progress overnight. PDMP PDMP Reviewed: Not Reviewed Coding Level of Care Code [facility] Diagn[facility] CAD (coronary artery disease) I25.10 HTN (hypertension), benign I10 Diastolic heart failure secondary to hypertension I11.0; I50.30 Chest pain R07.9 Hyperlipidemia E78.5 Uncontrolled type 1 diabetes mellitus End stage renal disease on dialysis N18.6; Z99.2
[2025-04-22 17:31] LABS: Troponin 5 6HR 139.1 ng/L (0-10); Troponin 5 6HR Delta -10.9 ng/L (0-12)
--- NOTE | 2025-04-22 18:32 | PM.HP ---
Providers/Chief Complaint Admitting Physician: Bill Lagos MD Primary Care Provider: SUZANNE Dias Chief Complaint: chest pain History of Present Illness Donita Aguilar is a 39 year old female with insulin-dependent diabetes since age 23 states she did not try hard to take care of her diabetes at young age as she lost her daughter who is 3-1/2 months old and [facility] at that time. Patient had another daughter 2 years later now age 15. She states she did not start taking care of her health until her kidneys filled age 38. She quit tobacco at that time. She quit methamphetamines age 37. Patient states she has had 8 cardiac stents. She has never had lipoprotein a or hs-CRP checked. She is on statins but I do not see a lipid panel here. Patient has had last heart cath in September which showed left main with 10% stenosis LAD with luminal irregularity and a proximal stent with mid in-stent restenosis left circumflex had luminal irregularity without in-stent restenosis RCA was a dominant vessel with proximal 40% stenosis and also 40% in-stent restenosis August was the last stent and she had a proximal circumflex 99% stenosis treated with a stent and a mid RCA 60% treated with a balloon. Mid circumflex also treated with a balloon to a 70% stenosis in August 2024 Patient having 15 minutes of chest pain 5-6 times a day not relieved by nitroglycerin or anything in particular. Her dialysis was cut short 20 minutes today due to chest pain. She makes minimal urine i.e. 20 cc a day she has been trying hard to keep her blood sugar under control and last hemoglobin A1c was 6 Family history mom had an MS at age 50s and a stent now 63 Review of Systems Narrative: General No fevers chills Cardiovascular positive for palpitations and chest pain she has had 15 minutes of 8-9/10 chest pain not relieved by nitroglycerin occurring 2-3 times a day since September. She states that after her stents in August and balloon she was pain-free for a month then it came back in September and angiogram was reassuring. Since then she had 2-3 times a day chest pain lasting 15 minutes not relieved by anything in particular and now 5-6 times a day the last few days. Dialysis seems to make it better sometimes Respiratory no shortness breath cough wheezing GI positive nausea and diarrhea no constipation or vomiting no dysuria hematuria incontinence DIRECTOR BIOLOGICS but no vaginal bleeding or discharge Malignancy history negative Stroke history negative Blood clots no DVT or PE history Medications/Allergies Home Medications ?Medication ?Instructions ?Recorded ?Confirmed ?Last Taken ?Type blood-glucose sensor (Dexcom G6 #3 ea 06/12/22 04/22/25 Unknown Rx Sensor device) blood-glucose transmitter (Dexcom #1 ea 06/12/22 04/22/25 Unknown Rx G6 Transmitter device) blood-glucose,lump receiver,cont #1 ea 06/12/22 04/22/25 Unknown Rx (Dexcom G6 Power Barker Operator) sevelamer carbonate 800 mg tablet 800 mg PO TID #90 tabs 09/16/23 04/22/25 04/22/25 08:00 Rx gabapentin 100 mg capsule 100 mg PO TID 12/27/23 04/22/25 04/21/25 History aspirin 81 mg tablet,delayed 81 mg PO QAM 30 days #30 tabs 03/28/24 04/22/25 04/22/25 09:00 Rx release atorvastatin 40 mg tablet 40 mg PO BEDTIME 30 days #30 tabs 03/28/24 04/22/25 04/21/25 20:00 Rx AFO brace #1 ea 04/20/24 04/22/25 Unknown Rx diabetic shoes with 3 inserts #1 ea 04/20/24 04/22/25 Unknown Rx clopidogrel 75 mg tablet 75 mg PO DAILY 04/28/24 04/22/25 04/22/25 09:00 History amlodipine 5 mg tablet 5 mg PO DAILY #30 tabs 09/30/24 04/22/25 04/22/25 09:00 Rx insulin aspart U-100 100 unit/mL See Rx Instructions .Route 12/28/24 04/22/25 04/21/25 Rx (3 mL) subcutaneous pen (Novolog .COMPLEX #15 mL FlexPen U-100 Insulin aspart) escitalopram oxalate 20 mg tablet 20 mg PO DAILY anxiety 02/14/25 04/22/25 04/22/25 08:00 History folic acid 1 mg tablet 1 mg PO DAILY 02/14/25 04/22/25 04/22/25 08:00 History hydralazine 25 mg tablet 12.5 mg PO BID 02/14/25 04/22/25 04/22/25 History nitroglycerin 0.4 mg sublingual See Rx Instructions .Route .COMPLEX 02/22/25 04/22/25 Unknown History tablet isosorbide mononitrate 30 mg 30 mg PO DAILY #30 tabs 02/26/25 04/22/25 04/22/25 09:00 Rx tablet,extended release 24 hr ranolazine 500 mg tablet,extended 500 mg PO BID #60 tabs 04/09/25 04/22/25 Unknown Rx release,12 hr cyclobenzaprine 10 mg tablet 10 mg PO TID PRN MUSCLE SPASM 04/22/25 04/22/25 Unknown History tramadol 50 mg tablet 50 mg PO DAILY 04/22/25 04/22/25 Unknown History Allergies Allergy/AdvReac Type Severity Reaction Status Date / Time acetaminophen AdvReac Mild ADR-Gastrointestinal Verified 04/07/25 19:26 Upset PFSH Acute PFSH: Medical History (Updated 04/22/25 @ 18:50 by Bill Lagos MD) Insulin dependent diabetes mellitus with complications Chest pain Diabetes mellitus HTN (hypertension) HTN (hypertension), benign Hyperkalemia Headache Accelerated hypertension Uncontrolled type 1 diabetes mellitus ESRD (end stage renal disease) Dialysis complication Hypoglycemia Hemodialysis catheter dysfunction Colitis End stage renal disease on dialysis COPD (chronic obstructive pulmonary disease) Transaminitis Intractable nausea and vomiting Hyperlipidemia CHF (congestive heart failure), NYHA class III Pulmonary hypertension CAD (coronary artery disease) Neurogenic bladder COVID-19 Tobacco dependence Drug abuse Anemia Community acquired pneumonia Esophagitis Long-term insulin use History of pancreatitis Celiac disease Recurrent UTI Non-alcoholic fatty liver disease Arnold-Chiari malformation Diabetic gastroparesis -continue Reglan Diabetic neuropathy associated with type 1 diabetes mellitus Headache, common migraine, intractable, with status migrainosus Pleural effusion 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 History of lung surgery -s/p LLL lobectomy secondary to cavitary pneumonia (2017) History of endoscopy History of cholecystectomy Family History Grandfather Diabetes Mother CAD (coronary artery disease) Diabetes Heart disease Hypertension Brother Acute lymphoblastic leukemia (ALL) in child Grandmother Thyroid disease Denies family history of Colon cancer Ovarian cancer Prostate cancer Hyperlipidemia Breast cancer Uterine cancer Stroke Social History (Updated 04/22/25 @ 18:41 by Bill Lagos MD) Smoking and tobacco/nicotine status: former use of tobacco/nicotine Quit status (tobacco/nicotine): has quit using Former quit date comment: She previously smoked <1/2 PPD, quit July 2023. 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 [employer] Female Reproductive History: Spontaneous abortions: No Vitals/I&O/Wt Last Vital Signs Temp 98.1 F 04/22/25 08:44 Pulse 77 04/22/25 16:44 Resp 16 04/22/25 08:44 BP 144/90 04/22/25 16:44 Pulse Ox 97 04/22/25 16:44 O2 Del Method Room Air 04/22/25 17:23 Weight last 48 hrs Weight 63.503 kg Weight 63.503 kg Physical Exam Narrative: General well-developed well-nourished female in no acute cardiopulmonary stress CV regular rate and rhythm Lungs clear to auscultation bilaterally Abdomen positive bowel tones soft nontender Calves no tenderness cords or pretibial edema Mood and affect appropriate Data 04/22/25 09:16 04/22/25 09:16 A&P Assessment and plan 1. Unstable angina: Will give an aspirin. Continue monitoring overnight. Will discuss with cardiology whether or not they want to start heparin. Anticipate selective coronary angiogram in the morning if pain does not go away and it has not seemed to be going away so far 2. End stage renal disease on dialysis: Continue dialysis Saturday next time will be Saturday 3. CAD (coronary artery disease): Known multiple stents we will check hs-CRP and lipoprotein a early in the morning along with a lipid panel. Patient is to fast 10 hours for this 4. S/P coronary artery stent placement: History of 8 stents 5. Insulin dependent diabetes mellitus with complications: Patient is not on any long-acting insulin. She states that since since she has quit eating sugar she actually has not needed long-acting insulin and her tombstone polisher does not want her on any. A1c is 6 she will be put on the low scale sliding scale here PDMP PDMP Reviewed: Not Reviewed Attestations Medical Necessity Statement*: Patient is admitted to the hospitalist on observation for chest pain. Consultation by cardiology and potential angiogram in the morning Coding Level of Care Code 98723 Diagnoses Unstable angina I20.0 End stage renal disease on dialysis N18.6; Z99.2 CAD (coronary artery disease) I25.10 S/P coronary artery stent placement Z95.5 Insulin dependent diabetes mellitus with complications Time Spent (min) 55
[2025-04-22] MEDS: lidocaine 2% viscous 15 ML, aluminum-mag hydrox-simethicon 30 ML, sucralfate oral liq 1 GM PO (18:59)
[2025-04-22] MEDS: heparin 5,000 unit/mL INJ 1 mL 5000 UNIT SUBCUT (19:00)
[2025-04-22 19:06] LABS: Lipase 26 U/L (13-60)
--- NOTE | 2025-04-22 19:14 | PC.NURSE ---
Physician orders to place low dose sliding scale
[2025-04-22] MEDS: oxyCODONE 5 mg IR Tab/Cap PO (21:39)
[2025-04-22] MEDS: insulin glargine 100 units/1 mL 10 UNIT SUBCUT (21:39)
[2025-04-23] VITALS (30 sets, daily range): BP systolic 83–154; BP diastolic 42–86; PULSE 68–78; RESP 10–20; TEMP 36.4–36.8; O2SAT 91–100
[2025-04-23] MEDS: morphine 4 mg/mL SDV 1 mL 2 MG IVP ×3 (03:41→16:39)
[2025-04-23 04:29] LABS: Cholesterol 96 mg/dL (0-200); HDL Cholesterol 30 mg/dL (60-100); Triglycerides 228 mg/dL (0-150); VLDL Cholestrol Calculation 46 mg/dL (0-30)
[2025-04-23 04:41] LABS: CRP High Sensitivity Cardiac 2.940 mg/dL (0.0-0.3)
[2025-04-23] MEDS: ranolazine (12HR) 500 mg Tablet PO (04:41)
--- NOTE | 2025-04-23 05:59 | XACV_ITS ---
Exam Room: [facility] Ht: 152 cm Wt: 66 kg BSA: 1.69 m2 Gender: Female : 1985 Any Known Allergies: Other Exam Priority: Routine Procedure(s): Procedure Description: Diagnostic procedure Procedure Description: Left Heart Catheterization Procedure Description: Left ventriculography Procedure Description: Coronary Angiography El REA; Diagnostic Cath Status: Elective Conclusions 1. Indication: Non-ST elevation AK, chest painLeft Main: No significant stenosis LAD has proximal and mid stent which is patent mild in-stent stenosis noted Left circumflex has ostial 50% in-stent restenosis patent proximal stent RCA is moderate-sized in caliber, patent proximal to mid stent with mild in-stent restenosis, distal stent has 2 layers of stent with 60% eccentric stenosis, may consider drug-coated balloon at this segmentLeft ventricular ejection fraction is normal no significant wall motion abnormality. Estimate ejection fraction is 60%. Recommendations * 1-Return to inpatient for close monitoring and routine cath care 2-Risk factor modification for secondary prevention 3-Statin and aspirin 81 mg life-long, if tolerated 4-Consider drug-coated balloon to 2 layers of stents in the future if needed for in-stent restenosis in the RCA distal segment 5-Continue optimal medical management 6-Follow up with Dr. Gallegos in four weeks and your primary care in 10 days. Diagnostic RX Recommendation: medical therapy and/or counseling Ventriculography Ejection Fraction: 65.0 % Pressures Phase:Rest AO : 126 / 74 ( 100 ) @ 9:23:00 AM 115 / 73 ( 91 ) @ 9:31:00 AM 113 / 63 ( 83 ) @ 9:31:00 AM LV : 124 / 9 / 24 @ 9:29:00 AM 113 / 3 / 18 @ 9:30:00 AM 120 / 2 20 @ 9:31:00 AM Valves Phase:DefaultPhase AV : 4.0 @ 8:43:53 AM AV Mean Gradient: 6.0 @ 8:43:53 AM Clinical Evaluation EBL: 5mL-10mL Procedural Details Procedure Consent Obtained. Admit Source: In Patient. Pre-Procedure Time Out. Identified patient by full name and date of as verbalized by the patient/guarantor. Does the consent match the physician's order: Yes. Accurate & Complete Informed Consent: Yes. Inpatient/Outpatient History & Physical on Chart: Yes. If H&P is completed, is and addenduem needed: No; If yes, is the addendum complete: N/A. Visualize and Verify Site with Patient/Guarantor: N/A. Relevant Radiology Images available: Yes. The risks, benefits, and alternatives of sedation and/or procedure were discussed by physician. The patient agrees to continue. Procedure started. [facility] Clinical Fraility Score: 3: Managing Well. Hydraulic Miner Indications: ACS > 24 hours. Chest Pain Symptom Assessment: Atypical Angina. Correct patient, site and procedure confirmed by cath team. Current diagnosis: Nstemi. PERRLA. Strong, equal hand bilingual school psychologist bilaterally. Lungs clear x 5 lobes. IV Site on Arrival: 18 gauge in the right anticubital. IV Site on Arrival: 20 gauge in the right wrist. IV Fluids: 0.9% NaCl at KVO. 50 mL infused prior to laborer wood preserving plant. Pre Procedural Pulses: bilateral posterior tibial was Doppled. Pre Procedural Pulses: bilateral dorsalis pedis was Doppled. Oxygen started at 2liters/min via nasal canula. bilateral groins was prepped with chloroprep then draped in the usual sterile fashion. Physician notified. Baseline sample Acquired. HR: 76 BPM. Physician arrived. Physician scrubbed in. Immediate Pre-Procedure Time Out. Correct Patient: Yes; Correct Procedure: Yes; Correct Site: Yes; Correct Patient Position: Yes; Correct Supplies: Yes; Dried Flammable Prep: Yes; Blood Products Available: No;. Lidocaine 1% infiltrated to the right groin. Arterial access obtained with micropuncture set. A Right femoral angiogram was performed to determine safe placement of closure device. A 5 ugandan JL4 catheter in over wire. Multiple views taken of left coronary artery. Catheter removed over the standard wire. A 5 ugandan JR4 catheter in over wire. Multiple views taken of right coronary artery. Catheter removed over the standard wire. A 5 ugandan Angled Pig catheter in over wire. EDP Sample taken: LV 124/9,24; HR: 79 BPM; SpO2: 100%. LV gram performed in BASILIO @ 10 mL/second for a total of 30 mL. EDP Sample taken: LV 113/3,18; HR: 77 BPM; SpO2: 100%. Pullback taken: LV 120/2,20; AO 115/73(91); Mean: 6mmHg, Peak to Peak: 4mmHg, SEP: 21sec/min; HR: 77 BPM; SpO2: 100%. Catheter removed over the standard wire. A Right femoral angiogram was performed to determine safe placement of closure device. Medication's Wasted: Lidocaine 1% = 10 mL. Medication's Wasted: Heparin = 1000 units. Medication's Wasted: Other = Fentanyl 25mcg, Versed 1 mg. Total IV fluids: 50 mL. A Mynx was successful obtaining hemostatsis at the Right Femoral artery insertion site. EXP 01-22-2027 LOT # [id number]. Post-op diagnosis: Non-obstructive CAD, Patent prior stents. PERRLA. Strong, equal hand bilingual school psychologist bilaterally. No VTE prophylaxis required. Post Procedure: Pulses reassessed and unchanged. Complications: None. Estimated blood loss: 5mL-10mL. Responsiveness - Normal response to verbal stimuli; alert and oriented, PERRLA. Airway - Unaffected, no intervention required; spontaneous ventilation. Circulation: W/N/L, pulses unchanged. Nausea/Vomiting: No. Procedure completed. Patient transferred by bed to 1st floor. Vital chart was stopped. Access Site Site: Right Femoral artery Sheath Size: 6 Fr Hemostasis Method: Mynx Hemostasis Success: Successful Procedure Medications Start: 7:49 AM Stop: 7:49 AM Medication: Versed Amount: 1 mg Route: I.V. Start: 7:49 AM Stop: 7:49 AM Medication: Fentanyl Amount: 50 mcg Route: I.V. Start: 8:15 AM Stop: 8:15 AM Medication: Fentanyl Amount: 25 mcg Route: I.V. I, the attending physician, have reviewed and verified all procedure medications. Yes, all medications given per verbal order History/Risk Factors Hypertension: Yes Dyslipidemia: Yes Peripheral Arterial Disease (PAD): No Myocardial Infarction (AK): Yes Obesity: No Renal Disease: Yes Tobacco Use: Former Dialysis: Current Prior Interventions PCI: Yes CABG: No Valve Surgery: No Report Signatures Finalized by Austin Gallegos MD on 05/01/2025 02:59 PM
--- NOTE | 2025-04-23 07:59 | W.PM.OPSUD ---
Surgery/Procedure H&P Update DATE OF PROCEDURE: April 23, 2025 DATE H&P PERFORMED: 04/22/25 H&P UPDATE INFORMATION: I have reviewed H&P completed within last 30 days, I have examined patient prior to procedure and No changes to prior documentation CHANGES TO PREVIOUS DOCUMENTATION: 39-year-old female past medical history significant for vascular pathology hypertension prior history of PCI intervention presented with worsening of chest pain on mild exertion and now at rest exactly feeling the same way she had her stent. Patient was admitted couple of months ago stress test was negative was sent home. According to her she continues to experience angina and now to the extent that it is beyond her control and pain is getting more intense. It is the reason we are proceeding with left heart cath. PREOP DIAGNOSIS: Unstable angina PLANNED PROCEDURE: Left heart cath PATIENT REASSESSED PRIOR TO SEDATION, WITH NO CHANGE NOTED: Yes PHYSICAL EXAM: alert, oriented x 3, clear to auscultation bilaterally, regular rate & rhythm and operative site marked AIRWAY EVAL/ANESTHESIA PLAN: normal airway, ASA II, Risks, benefits & alternatives of sedation and/or procedure discussed and Patient agrees to continue as planned ADDITIONAL INFORMATION: All risk-benefit and alternative for the procedure has been explained to the patient. Patient restand 2% risk of stroke major bleed. Patient understand 5% risk of minor bleeding oozing infection hematoma contrast-induced nephropathy urgent emergent vascular or bypass surgery. Patient would like to proceed with it.
--- NOTE | 2025-04-23 08:47 | PM.PN ---
Subjective Subjective: Patient underwent left heart catheterization she was noted to have patent previously placed stents no significant stenosis. Vitals/I&O/Wt Last Vital Signs Temp 97.6 F 04/23/25 07:39 Pulse 70 04/23/25 07:39 Resp 12 04/23/25 07:39 BP 97/61 04/23/25 07:39 Pulse Ox 98 04/23/25 04:00 O2 Del Method Room Air 04/23/25 04:00 04/22/25 04/23/25 04/23/25 22:59 06:59 14:59 Intake Total 120 / 120 Balance 120 / 120 Weight last 48 hrs Weight 145 lb 8.081 oz Weight 140 lb Weight 140 lb Physical Exam Const: COMMON NORMALS: alert OTHER: GENERAL: Patient is alert, awake and oriented x3. HEART: Regular S1 and S2. No murmur, rub or gallop. LUNGS: Clear to auscultate bilaterally. CENTRAL NERVOUS SYSTEM: Grossly nonfocal. EXTREMITIES: Lower extremities with out edema bilaterally. Resp: COMMON NORMALS: clear to auscultation bilaterally AUSCULTATION: clear to auscultation bilaterally Neuro: SENSORIUM/ORIENTATION: Yes alert Data 04/22/25 09:16 04/22/25 09:16 A&P Assessment and plan 1. CAD (coronary artery disease): 2. HTN (hypertension), benign: 3. Diastolic heart failure secondary to hypertension: 4. Chest pain: 5. Mixed hyperlipidemia: 6. Uncontrolled type 1 diabetes mellitus with hyperglycemia: 7. End stage renal disease on dialysis: Plan: Patient underwent left heart catheterization. Noted to have patent previously placed RCA and LAD stents no significant new in-stent restenosis or negative coronary artery stenosis. Left ventricular ejection fraction normal and 65% Continue current management patient is already on Ranexa ranolazine. PDMP PDMP Reviewed: Not Reviewed Attestations Medical Necessity Statement*: As per medicine team Coding Level of Care Code Acute Code for [facility] Diagnoses CAD (coronary artery disease) I25.10 HTN (hypertension), benign I10 Diastolic heart failure secondary to hypertension I11.0; I50.30 Chest pain R07.9 Mixed hyperlipidemia E78.2 Hyperlipidemia type: mixed hyperlipidemia Uncontrolled type 1 diabetes mellitus with hyperglycemia E10.65 Glycemic state: with hyperglycemia End stage renal disease on dialysis N18.6; Z99.2
--- NOTE | 2025-04-23 13:07 | PM.DCS ---
Discharge Providers Date of Admission: 04/22/25 16:38 Date of Discharge: April 23, 2025 Attending Provider at Admission: Bill Lagos MD Attending Provider at Discharge: Bill Lagos MD Consults: Dr. Austin Gallegos MD cardiology Primary Care Provider: SUZANNE Dias Diagnoses at Discharge Discharge Diagnosis 1. CAD (coronary artery disease): Details from hospital stay: Stable anatomy based on selective coronary angiogram today. I started colchicine 0.6 mg daily due to recurrent coronary artery disease and in-stent stenosis seen on previous angiogram. Increase treatment adding colchicine for possible inflammation. High-sensitivity C-reactive protein is pending 2. HTN (hypertension), benign: Details from hospital stay: Stable 3. Diastolic heart failure secondary to hypertension: Details from hospital stay: Stable 4. Chest pain: Details from hospital stay: Uncertain etiology. Did not respond to GI cocktail. Did respond to morphine. These are at 15-minute bouts of severe 8/10 chest pain occurring a few times a day. Was not relieved by nitroglycerin. Patient is allergic to Tylenol based on GI upset 5. Mixed hyperlipidemia: Details from hospital stay: I checked lipoprotein a and high-sensitivity C-reactive protein 6. Uncontrolled type 1 diabetes mellitus with hyperglycemia: Details from hospital stay: Blood sugars elevated here and I started her on Lantus 10 units nightly 7. End stage renal disease on dialysis: Details from hospital stay: Continue dialysis next episode tomorrow Reason for Visit Reason for Visit: chest pain Brief History: Donita Aguilar is a 39 year old female with insulin-dependent diabetes since age 23 states she did not try hard to take care of her diabetes at young age as she lost her daughter who is 3-1/2 months old and [facility] at that time. Patient had another daughter 2 years later now age 15. She states she did not start taking care of her health until her kidneys filled age 38. She quit tobacco at that time. She quit methamphetamines age 37. Patient states she has had 8 cardiac stents. She has never had lipoprotein a or hs-CRP checked. She is on statins but I do not see a lipid panel here. Patient has had last heart cath in September which showed left main with 10% stenosis LAD with luminal irregularity and a proximal stent with mid in-stent restenosis left circumflex had luminal irregularity without in-stent restenosis RCA was a dominant vessel with proximal 40% stenosis and also 40% in-stent restenosis August was the last stent and she had a proximal circumflex 99% stenosis treated with a stent and a mid RCA 60% treated with a balloon. Mid circumflex also treated with a balloon to a 70% stenosis in August 2024 Patient having 15 minutes of chest pain 5-6 times a day not relieved by nitroglycerin or anything in particular. Her dialysis was cut short 20 minutes today due to chest pain. She makes minimal urine i.e. 20 cc a day she has been trying hard to keep her blood sugar under control and last hemoglobin A1c was 6 Family history mom had an IL at age 50s and a stent now 64 Hospital Course Hospital Course Patient underwent cardiac cath this morning which was negative for intervenable disease. She has a history of 8 stents per her report. She is companied by her parents Mary and Alexis. Patient does not take ranolazine due to hallucinations. I spoke with Elza Carranza and we will increase patient's Imdur to 60 mg daily from 30 mg daily. Follow-up with PCP next week and follow-up with pain specialist as planned. Follow-up Elza Carranza in 2 weeks Pain was relieved by morphine but not by nitroglycerin or GI cocktail here in the hospital. Additionally patient has 20 cc a day urine output at home but she had none here. I spoke with nephrology and patient can dialyze tomorrow as per usual. The angiogram dye does not need to be acutely removed as she is already a dialysis patient Physical Exam Narrative: General well-developed well-nourished female in no acute cardiopulmonary stress CV regular rate and rhythm Lungs clear to auscultation bilaterally Abdomen positive bowel tones soft nontender Calves no tenderness cords or pretibial edema Mood and affect appropriate Discharge Data Studies Completed and Pending Completed Studies During Hospitalization Category Date Time Status XR chest 1V portable [id number] Stat Exams 04/22/25 08:45 Completed Pending at discharge Category Date Time Status SCREEN TACKER request for service Routine Exams 04/23/25 05:59 Ordered Basic Metabolic Panel AM LABS Lab 04/24/25 04:00 Ordered C-Peptide Routine Lab 04/23/25 03:25 Received Lipoprotein (a) Routine Lab 04/23/25 03:25 Received Radiology Impressions Chest X-Ray 04/22/25 08:45 IMPRESSION: 1. No acute cardiopulmonary finding. Laboratory Results WBC 7.28 10^3/uL (3.29-11.43) 04/22/25 09:16 RBC 3.44 10^6/uL (3.85-5.65) L 04/22/25 09:16 Hgb 10.10 g/dL (11.27-16.99) L 04/22/25 09:16 Hct 32.7 % (36-47) L 04/22/25 09:16 MCV 95.1 fl (85-98) 04/22/25 09:16 MCH 29.4 pg (27-33) 04/22/25 09:16 MCHC 30.9 g/dL (30-55) 04/22/25 09:16 RDW 13.1 % (12.1-15.1) 04/22/25 09:16 Plt Count 234 10^3/cmm (157-399) 04/22/25 09:16 MPV 9.0 fL (7.4-10.4) 04/22/25 09:16 Neut % (Auto) 68.7 % 04/22/25 09:16 Lymph % (Auto) 19.0 % 04/22/25 09:16 [place] % (Auto) 7.7 % 04/22/25 09:16 Eos % (Auto) 3.8 % 04/22/25 09:16 Baso % (Auto) 0.5 % 04/22/25 09:16 Neut # (Auto) 5.00 10^3/uL (1.8-7.7) 04/22/25 09:16 Lymph # (Auto) 1.4 10^3/uL (0.8-4.8) 04/22/25 09:16 [place] # (Auto) 0.6 10^3/uL (0.2-0.9) 04/22/25 09:16 Eos # (Auto) 0.3 10^3/uL (0.0-0.8) 04/22/25 09:16 Baso # (Auto) 0.0 10^3/uL (0.0-0.1) 04/22/25 09:16 Nucleated RBC % (auto) 0 % 04/22/25 09:16 Nucleated RBCs # 0.0 /100WBC 04/22/25 09:16 Sodium 138 mmol/L (136-145) 04/22/25 09:16 Potassium 4.1 mmol/L (3.5-5.1) 04/22/25 09:16 Chloride 95 mmol/L (98-107) L 04/22/25 09:16 Carbon Dioxide 25 mmol/L (22-29) 04/22/25 09:16 Anion Gap 22.1 (5-19) H 04/22/25 09:16 BUN 19 mg/dL (6-20) 04/22/25 09:16 Creatinine 3.9 mg/dL (0.5-0.9) H 04/22/25 09:16 GFR Calculation 12.9 mL/min (90-130) L 04/22/25 09:16 Glucose 189 mg/dL (65-115) H 04/22/25 09:16 POC Glucose 196 mg/dL (70-110) H 04/23/25 11:09 Calculated Osmolality 293 mOsm/kg (285-295) 04/22/25 09:16 Calcium 8.5 mg/dL (8.5-10.5) 04/22/25 09:16 Total Bilirubin 0.3 mg/dL (0.15-1.2) 04/22/25 09:16 AST 14 U/L (0-32) 04/22/25 09:16 ALT 14 U/L (0-33) 04/22/25 09:16 Alkaline Phosphatase 254 U/L (35-105) H 04/22/25 09:16 Troponin T Baseline 150 ng/L (0-10) H* 04/22/25 09:16 Troponin T 120 Minute 144.3 ng/L (0-10) H 04/22/25 11:13 Delta Troponin T -5.7 ABS# (0-10) L 04/22/25 11:13 Troponin T Hi Sens 6Hr 139.1 ng/L (0-10) H 04/22/25 16:26 Troponin T Hi Sens 6Hr Delta -10.9 ng/L (0-12) L 04/22/25 16:26 C-React Prot High Sens 2.940 mg/dL (0.0-0.3) H 04/23/25 03:25 Total Protein 7.5 g/dL (6.6-8.7) 04/22/25 09:16 Albumin 4.0 g/dL (3.5-5.2) 04/22/25 09:16 Globulin 3.5 g/dL (1.3-4.6) 04/22/25 09:16 Triglycerides 228 mg/dL (0-150) H 04/23/25 03:25 Cholesterol 96 mg/dL (0-200) 04/23/25 03:25 LDL Cholesterol, Calc 20 mg/dL (50-129) L 04/23/25 03:25 Total VLDL Cholesterol 46 mg/dL (0-30) H 04/23/25 03:25 HDL Cholesterol 30 mg/dL (60-100) L 04/23/25 03:25 Cholesterol/HDL Ratio 3.20 mg/dL (0.0-4.40) 04/23/25 03:25 Lipase 26 U/L (13-60) 04/22/25 09:16 Procedures Performed Selective coronary angiogram diagnostic no interventions Vitals Last Vital Signs Temp 97.7 F 04/23/25 12:00 Pulse 69 04/23/25 12:00 Resp 12 04/23/25 12:00 BP 121/72 04/23/25 12:00 Pulse Ox 95 04/23/25 12:00 O2 Del Method Room Air 04/23/25 12:00 Discharge Plan Discharge Patient Disposition: Home Condition: Stable Prescriptions: New colchicine 0.6 mg tablet 0.6 mg PO DAILY Qty: 30 0RF isosorbide mononitrate 60 mg tablet extended release 24 hr 60 mg PO DAILY Qty: 30 0RF insulin glargine [Lantus U-100 Insulin] 100 unit/mL Solution 10 unit SUBCUT BEDTIME Qty: 10 0RF [place] brace See Rx Instructions .Route .MEDSUPPLY Qty: 1 0RF Rx Instructions: As directed to the shoe guys [place] shoes with 3 inserts See Rx Instructions .Route .MEDSUPPLY Qty: 1 0RF Rx Instructions: As directed to the shoe guys [place] Dexcom G6 Orthopedic Rn Misc See Rx Instructions .Route Qty: 1 0RF Rx Instructions: As directed [place] Dexcom G6 Sensor Device See Rx Instructions .Route Qty: 3 0RF Rx Instructions: As directed [place] Dexcom G6 Transmitter Device See Rx Instructions .Route Qty: 1 0RF Rx Instructions: As directed atorvastatin 40 mg tablet 40 mg PO BEDTIME 30 Days Qty: 30 0RF aspirin 81 mg tablet,delayed release (DR/EC) 81 mg PO QAM 30 Days Qty: 30 0RF amlodipine 5 mg Tablet 5 mg PO DAILY Qty: 30 0RF sevelamer carbonate 800 mg Tablet 800 mg PO TID Qty: 90 0RF gabapentin 100 mg Capsule 100 mg PO TID clopidogrel 75 mg tablet 75 mg PO DAILY insulin aspart U-100 [Novolog FlexPen U-100 Insulin] 100 unit/mL (3 mL) insulin pen See Rx Instructions .ROUTE .COMPLEX Qty: 15 0RF Rx Instructions: Inject 3 times daily, subcut, after meals, based on low-dose sliding scale. hydralazine 25 mg tablet 12.5 mg PO BID folic acid 1 mg tablet 1 mg PO DAILY escitalopram oxalate 20 mg tablet 20 mg PO DAILY nitroglycerin 0.4 mg tablet, sublingual See Rx Instructions .ROUTE .COMPLEX Rx Instructions: DISSOLVE ONE TABLET UNDER THE TONGUE EVERY 5 MINUTES NEEDED FOR CHEST PAIN. DO NOT EXCEED A TOTAL OF 3 DOSES IN 15 MINUTES. tramadol 50 mg tablet 50 mg PO DAILY cyclobenzaprine 10 mg tablet 10 mg PO TID PRN (Reason: MUSCLE SPASM ) Discontinued isosorbide mononitrate 30 mg tablet extended release 24 hr 30 mg PO DAILY Qty: 30 0RF ranolazine 500 mg tablet extended release 12 hr 500 mg PO BID Qty: 60 0RF Package Delivery Room Service Runner OK for DC: Hospitalist Discharge Order = DC NOW: Discharge Order (Routine); Ordered 04/23/25 Ordered By: Bill Lagos Referrals: Elizabeth Dougherty FNP [Primary Care Provider, Unknown] - 04/29/25 10:20 am Referral Note: Follow up flaca with Dr Dougherty. Elza Carranza FNP [Nurse Practitioner, Cardiology] - 2 weeks Discharge Diet: Diabetic Discharge Activity: Resume usual activity Patient Instructions: Colchicine (By mouth), Insulin Glargine (By injection), Low Fat Diet (GEN), Coronary Artery Disease in Women (GEN), Mediterranean Diet (GEN), Opioid Safety, Patient Portal & Flaca Instructions Activity Restrictions/Additional Instructions: Follow-up 1500-calorie diabetic diet and avoid processed foods to decrease inflammation in the blood vessels. Additionally have started you on colchicine which helps decrease coronary artery inflammation. Your lab which is a high-sensitivity C-reactive protein is pending along with a lipoprotein a. Please follow-up in cardiology to determine if those should be continued or medications need to be changed Colchicine can cause loose stools and if you notice that skip a dose and restart symptoms should go away with time Unfortunately you cannot take ranolazine due to hallucinations so increased her Imdur to 60 mg daily. You can take 2 of the 30 mg Imdur's together to equal 60 mg to use up that supply Discharge Attestations Time Spent in Discharge Care*: greater than 30 min Time Spent in Smoking Cessation: Patient is not a smoker Status at Discharge: Cognitive status at discharge: cognitively intact, Behavioral status at discharge: cooperative and independent in ADL's, Quality Metrics Clinical Quality Measures [ No reported AMI, CVA or VTE this stay] Coding Level of Care Code Acute Code for Chg Fwd Diagnoses CAD (coronary artery disease) I25.10 HTN (hypertension), benign I10 Diastolic heart failure secondary to hypertension I11.0; I50.30 Chest pain R07.9 Mixed hyperlipidemia E78.2 Hyperlipidemia type: mixed hyperlipidemia Uncontrolled type 1 diabetes mellitus with hyperglycemia E10.65 Glycemic state: with hyperglycemia End stage renal disease on dialysis N18.6; Z99.2 Time Spent (min) 35
[2025-04-23] MEDS: oxyCODONE 5 mg IR Tab/Cap PO (14:30)
== END 2025-04-23 16:50 | disposition home or self-care (01) ==
LOC: ER 16:20 → CSU 16:38
PROVIDERS: Internal Medicine Cardiovascular Disease; Admitting Provider Internal Medicine; Emergency Provider Family Medicine; PCP Nurse Practitioner Family; Visit Provider Internal Medicine
DX: I25.118 Atherosclerotic heart disease of native coronary artery with other forms of angina pectoris (principal); E10.22 Type 1 diabetes mellitus with diabetic chronic kidney disease; I13.2 Hypertensive heart and chronic kidney disease with heart failure and with stage 5 chronic kidney disease, or end stage renal disease; N18.6 End stage renal disease; I50.9 Heart failure, unspecified; E78.2 Mixed hyperlipidemia; E10.65 Type 1 diabetes mellitus with hyperglycemia; Z99.2 Dependence on renal dialysis; Z79.4 Long term (current) use of insulin; Z79.82 Long term (current) use of aspirin; Z95.5 Presence of coronary angioplasty implant and graft; J44.9 Chronic obstructive pulmonary disease, unspecified; F41.9 Anxiety disorder, unspecified; Z87.891 Personal history of nicotine dependence
CPT/HCPCS: 36415; 36416; 71045; 80053; 80061; 82962; 83690; 83695; 84484; 84681; 85025; 86141; 93005; 93458; 94664; 96372; 96374; 96376; 99152; 99153; 99285; C1760; C1769; C1887; C1894; G0269; G0378; J1644; J1815; J2250; J2270; J3010; J7030; J9999; Q0163; Q9967

== ENCOUNTER 2025-04-28 17:54 | Emergency (ER) | payer MEDICARE, MEDICAID, SELFPAY ==
--- OUTSIDE RECORDS SUMMARY | 2025-04-28 18:00 | XMS_ITS | Encounter Summary ---
Author Organization [facility] Address [address] [place] [address] Care Team Providers Care Screen Operator Name Role Phone Shravan Jones DO Primary Care Provider [phone] Encounter Details Date Type Department Care Team (Latest Contact Info) Description 05/14/2003 Outpatient [facility] Oral and Maxillo Surgery[address] [place] [address] Jimmy Tineo, CLIVES NO ADDRESS ON FILE UNSPEC DENTAL CARIES (Primary Dx); TOOTH POSITION ANOMALY Social History Tobacco Use Types Packs/Day Years Used Date Smoking Tobacco: Never Assessed Comments Unknown Sex and Gender Information Value Date Recorded Sex Assigned at Not on file Legal Sex Female 4:38 AM 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
--- OUTSIDE RECORDS SUMMARY | 2025-04-28 18:00 | XMS_ITS | Encounter Summary ---
Author Organization [facility] [employer], [facility] Address [address] [place] [address] Phone Care Team Providers Care Lead Esthetician Name Role Phone Alexis Garcia MD Primary Care Provider [phone] Encounter Details Date Type Department Care Team (Late st Contact Info) Description 04/16/2022 Orders Only [facility] [employer] [facility] [address] [place] [address] Chronic kidney disease, Stage IV [...] (severe) documented in this encounter Care Teams Lead Esthetician Relationship Specialty Start Date End Date Alexis Garcia MD [address] [place] [address] PCP - General Family Medicine 04/16/22 documented as of this encounter
--- OUTSIDE RECORDS SUMMARY | 2025-04-28 18:00 | XMS_ITS | Clinical Summary ---
Author Organization [employer] Address [address] [facility] Attn: [place] [address] Care Team Providers Care Tobacco Stripper Name Role Phone Shravan Jones DO [...] subcutaneous injection. 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 [place] [address] Abel Menon DO [address] [place] [address] Health Maintenance Due Date Last [...] 10/11/1999, 09/06/1999 Medical Devices Implanted Type Area Laborer Gold Leaf Device Identifier Shelf Expiration Date Model / Serial / Lot Max 1gm Flour [id number] - [id number] Implanted:Qty : 2 on 12/17/2016 by Deandre Alan MD Biological Left: Lung CR BARD- DAVOL INC 09/19/2019 [id number] / / [id number] Cath Dialysis Glidepath 14.5fr 24cm Std [id number] - [id number] Implanted:Qty : 1 on 03/18/2024 by Asif Mcclellan MD at [facility] Catheter Right: Chest BARD ANGEL VASC 09/21/2025 [id number] / / [id number] Clip Ligating Horizon Red 722817 - Csc - [id number] Implanted:Qty : 1 on 08/10/2024 by Chato Fitch MD at [facility] Clip Left: Arm TELEFLEX INC [id number] 05/16/2029 [id number] / / [id number] Clip Ligating Horizon Med Ti 945524 - Csc - [id number] Implanted:Qty : 1 on 08/10/2024 by Chato Fitch MD at [facility] Clip Left: Arm TELEFLEX- WECK CLOSURE SYS [id number] 03/31/2029 [id number] / / [id number] Medicare Sales Executive Ligaclip Sml Mcs20 - [id number] Implanted:Qty : 1 on 08/10/2024 by Chato Fitch MD at [facility] Clip Left: Arm J&J- [employer]IC[employer] END[employer] [id number] 03/23/2029 MCS20 / / [id number] Closure Perclose Prostyle Sut Mediate 31311-30 - [id number] Implanted:Qty : 1 on 09/24/2023 by Janell Beauchamp MD at [facility] Closure Device N/A: Groin LOVE- VASC DEVICE [id number] 06/23/2025 49811-97 / / [id number] Closure Perclose Prostyle Sut Mediate 37859-30 - [id number] Implanted:Qty : 1 on 10/24/2023 by Janell Beauchamp MD at [facility] Closure Device Right: Groin LOVE- VASC DEVICE [id number] 07/24/2025 39415-79 / / [id number] Oil Slc 8.5ml [id number] - [id number] Implanted:Qty : 1 on 06/23/2024 by Janey Carrera MD at [facility] Eye Right: Eye [facility] [employer] 12/21/2026 [id number] / GTIN:[id number] / [id number] Graft Vasc Propaten 4-7fgq11ck [id number] - [id number] Implanted:Qty : 1 on 08/10/2024 by Chato Fitch MD at [facility] Graft Left: Arm [employer] [id number] 05/21/2027 [id number] / [id number] / Agent Hemostat Surgicel 2x3in 1952s - [id number] Implanted:Qty : 1 on 08/10/2024 by Chato Fitch MD at [facility] Hemostatic Left: Arm J&J- ETHICON INC [id number] 12/21/20283S / / [id number] Hemostatic Surgiflo 8ml W/ Thrombin 2994 - [id number] Implanted:Qty : 1 on 08/10/2024 by Chato Fitch MD at [facility] Hemostatic Left: Arm J&J- ETHICON INC [id number] 10/21/2025 2994 / / [id number] Agent Hemostat Surgicel 2x3in 1952s - [id number] Implanted:Qty : 1 on 08/10/2024 by Chato Fitch MD at [facility] Hemostatic Left: Arm J&J- ETHICON INC [id number] 12/21/20283S / / [id number] Stent Synergy Xd 3.0x48mm Evrlms Elut [id number] 0 - [id number] Implanted:Qty : 1 on 09/24/2023 by Janell Beauchamp MD at [facility] Stent N/A: Coronary BOSTON SCI GENEVIEVE [id number] 03/31/2025 [id number] 300 / / [id number] Stent Synergy Xd 2.63c94lh Evrlms Elut [id number] 0 - [id number] Implanted:Qty : 1 on 10/24/2023 by Janell Beauchamp MD at [facility] Stent Left: Coronary B[employer] SCI GENEV[employer]E [id number] 08/19/2024 [id number] 220 / / [id number] Control Implant Funmi Procedures Procedure Name Priority [...] Lacy MD CHEMISTRY ORDERABLES Final R esult [facility]™ [facility] CLIA # [id number] [address] [place] [address] * (ABNORMAL) HEMOGLOBIN A1C (09/21/2023 6:46 PM CDT) HEMOGLOBIN A1C 6.8(H) <=5.6 % 09/23/2023 9:24 AM CDT [facility]™ [facility] EST. AVG GLUCOSE, A1C 148 mg/dL 09/23/2023 9:24 AM CDT [facility] Blood Venipuncture / Unknown 09/21/2023 6:46 PM CDT 09/21/2023 7:08 PM CDT Narrative [facility] - 09/23/2023 9:24 AM CDT HGB A1C INTERPRETATION NORMAL: <5.7% PRE-DIABETES: 5.7 - 6.4% DIABETES: 6.5% OR GREATER Luiz Lacy MD CHEMISTRY ORDERABLES Final R esult [facility] CLIA # [id number] [facility] [address] from Last 3 Months or Most Recently Relevant to Health Maintenance Insurance [place] PART [place] B Advance Directives For more information, please contact: [phone] * Full Code (Latest Code Status on File) Date Activated Date Inactivated Comments 10/24/2023 2:34 PM 10/25/2023 11:47 AM * Full Code Date Activated Date Inactivated Comments 10/24/2023 9:13 AM 10/24/2023 2:34 PM * Full Code Date Activated Date Inactivated Comments 09/24/2023 3:14 PM 09/25/2023 9:51 PM * Full Code Date Activated Date Inactivated Comments 09/21/2023 5:50 PM 09/24/2023 3:14 PM Care Teams Tobacco Stripper Relationship Specialty Start Date End Date Shravan Jones DO PCP - General Family Practice 12/04/16
--- OUTSIDE RECORDS SUMMARY | 2025-04-28 18:00 | XMS_ITS | Encounter Summary ---
Author Organization [facility] Address [address] [place] [address] Care Team Providers Care Rn Enterostomal Name Role Phone Shravan Jnoes DO Primary Care Provider [phone] Encounter Details Date Type Department Care Team (Late st Contact Info) Description 12/12/2016 Nurse Only [facility] 4D Surgery Heart Lung [address] 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
--- OUTSIDE RECORDS SUMMARY | 2025-04-28 18:00 | XMS_ITS | Encounter Summary ---
Author Organization [facility] Address [address] [place] [address] Care Team Providers Care Implementation Specialist Name Role Phone Shravan Jones DO Primary Care Provider [phone] Encounter Details Date Type Department Care Team (Late st Contact Info) Description 01/09/2017 Lab Requisition [facility] Laboratory Services [facility] [address] [place] [address] Izabela Diamond MD NO ADDRESS ON FILE Social History Tobacco Use Types Packs/Day Years Used Date Smoking Tobacco: Every Day Cigarettes Comments:pt lethargic Comments Unknown Sex and Gender Information Value Date Recorded Sex Assigned at Not on file 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 This will have limited patient impact. us Izabela Diamond MD CHEMISTRY ORDERABLES Final Res ult [facility] CLIA# [id number] [address] [place] [address] * (ABNORMAL) COMPREHENSIVE METABOLIC PANEL (01/09/2017 3:15 AM CDT) SODIUM 139 136 - 145 mmol/L 01/09/2017 5:53 AM CDT [facility] POTASSIUM 4.1 3.5 - 5.1 mmol/L 01/09/2017 5:53 AM T [facility] CHLORIDE 101 98 - 107 mmol/L 01/09/2017 5:53 AM T [facility] CO2 28 21 - 32 mmol/L 01/09/2017 5:53 AM T [facility] CALCIUM 8.8 8.4 - 10.1 mg/dL 01/09/2017 5:53 AM T [facility] BUN 18(H) 7 - 17 mg/dL 01/09/2017 5:53 AM T [facility] CREATININE 0.73 0.55 - 1.02 mg/dL 01/09/2017 5:53 AM T [facility] GLUCOSE 182(H) 74 - 106 mg/dL 01/09/2017 5:53 AM T [facility] TOTAL PROTEIN 8.4(H) 6.4 - 8.2 g/dL 01/09/2017 5:53 AM T [facility] ALBUMIN 2.5(L) 3.4 - 5.0 g/dL 01/09/2017 5:53 AM CDT [facility] BILIRUBIN TOTAL 0.2 0.2 - 1.0 mg/dL 01/09/2017 5:53 AM CDT [facility] ALKALINE PHOSPHATASE 99 25 - 100 U/L 01/09/2017 5:53 AM CDT [facility] AST 30 15 - 37 U/L 01/09/2017 5:53 AM CDT [facility] ALT 27 13 - 61 U/L 01/09/2017 5:53 AM CDT [facility] GFR >60 >=60 mL/min/1.7 3 sq meter 01/09/2017 5:53 AM T [facility] Comment: eGFR has not been validated [...] 3 sq meter 01/09/2017 5:53 AM CDT [facility] ANION GAP 10 4 - 30 mmol/L 01/09/2017 5:53 AM T [facility] Blood 01/09/2017 3:15 AM CDT 01/09/2017 5:12 AM CDT us Izabela Diamond MD CHEMISTRY ORDERABLES Final Res ult [facility] CLIA# [id number] [address] [place] [address] * (ABNORMAL) CBC WITH DIFFERENTIAL (01/09/2017 3:15 AM CDT) WBC 8.7 4.5 - 11.0 K/uL 01/09/2017 5:[address] [facility] RBC 4.63 4.20 - 5.40 M/uL 01/09/2017 5:[address] [facility] HEMOGLOBIN 11.3(L) 12.0 - 16.0 g/dL 01/09/2017 5:[address] [facility] HEMATOCRIT 36.8 36.0 - 46.0 % 01/09/2017 5:[address] [facility] MCV 79.5(L) 84.0 - 103.0 fL 01/09/2017 5:[address] [facility] MCH 24.4(L) 27.0 - 34.0 pg 01/09/2017 5:[address] [facility] MCHC 30.7 30.0 - 35.0 g/dL 01/09/2017 5:[address] [facility] RDW 17.3(H) 11.0 - 14.5 % 01/09/2017 5:[address] [facility] RDW-STDEV 50.4 37.0 - 54.0 fL 01/09/2017 5:[address] [facility] PLATELETS 463(H) 140 - 440 K/uL 01/09/2017 5:[address] [facility] MPV 9.9 8.9 - 12.8 fL 01/09/2017 5:[address] [facility] NEUTROPHILS 46 42 - 75 % 01/09/2017 5:[address] [facility] LYMPHOCYTES 33 24 - 44 % 01/09/2017 5:[address] [facility] MONOCYTES 8 2 - 10 % 01/09/2017 5:[address] [facility] EOSINOPHILS 11(H) 0 - 7 % 01/09/2017 5:[address] [facility] BASOPHILS 1 0 - 1 % 01/09/2017 5:[address] [facility] IMMATURE GRANULOCYTES 0 0 - 2 % 01/09/2017 5:[address] [facility] NEUTROPHIL ABSOLUTE 4.05 2.00 - 8.00 K/uL 01/09/2017 5:20 AM CDT [facility] LYMPHOCYTE ABSOLUTE 2.86 1.20 - 4.00 K/uL 01/09/2017 5:20 AM CDT [facility] MONOCYTE ABSOLUTE 0.73(H) 0.10 - 0.60 K/uL 01/09/2017 5:20 AM CDT [facility] EOSINOPHIL ABSOLUTE 0.95(H) 0.00 - 0.70 K/uL 01/09/2017 5:20 AM CDT [facility] BASOPHILS ABSOLUTE 0.11 0.00 - 0.20 K/uL 01/09/2017 5:20 AM CDT [facility] IMMATURE GRANULOCYTES ABSOLUTE 0.03 0.00 - 0.10 K/uL 01/09/2017 5:20 AM CDT [facility] Blood 01/09/2017 3:15 AM CDT 01/09/2017 5:12 AM CDT us Izabela Diamond MD HEMATOLOGY ORDERABLES Final Re sult [facility] CLIA# [id number] [address] [place] [address] * (ABNORMAL) HEMOGLOBIN A1C (01/09/2017 2:52 AM CDT) HEMOGLOBIN A1C 8.9(H) 4.0 - 6.0 % 01/09/2017 1:31 PM CDT [facility] EST. AVG GLUCOSE, A1C 209 mg/dL 01/09/2017 1:31 PM CDT [facility] Blood 01/09/2017 2:52 AM CDT 01/09/2017 6:53 AM CDT Narrative [facility] - 01/09/2017 1:31 PM CDT Test performed on [employer] instrumentation using HPLC methodology us Izabela Diamond MD CHEMISTRY ORDERABLES Final Res ult [facility] CLIA# [id number] [address] [place] [address] documented in this encounter Visit Diagnoses Not on filedocumented in this encounter Care Teams Implementation Specialist Relationship Specialty Start Date End Date Shravan Jones DO PCP - General Family Practice 12/04/16 documented as of this encounter
--- OUTSIDE RECORDS SUMMARY | 2025-04-28 18:00 | XMS_ITS | Clinical Summary ---
Author Organization [facility] Address [address] [address] Care Team Providers Care Multiple Sclerosis Nurse Name Role Phone Alexis Garcia MD Primary Care Provider [phone] Encounters Date Type Department Care Team Description 04/27/2025 Treatment [facility] [employer], [facility] [address] [place] [address] Melissa Wiley NP End stage renal disease; Dependence on renal dialysis 04/22/2025 Orders Only [place] [facility], [facility] [address] [place] [address] Chey Navas MD 04/20/2025 Treatment [facility] [employer], [facility] [address] [place] [address] Chey Navas MD End stage renal disease; Dependence on renal dialysis 04/15/2025 Orders Only [place] [facility], [facility] [address] [place] [address] Chey Navas MD 04/13/2025 Orders Only [place] [facility] [address] [place] [address] Chey Navas MD 04/13/[address] [place] [address] [facility] [employer], [facility] [address] [place] [address] Melissa Wiley NP End stage renal disease; Dependence on renal dialysis 04/01/2025 Orders Only [place] [facility] [employer], [facility] [address] [place] [address] Chey Navas MD 03/30/2025 Treatment [facility], [facility] [address] [place] [address] Karlene Cespedes, HAYDEE End stage renal disease; Dependence on renal dialysis 03/25/2025 [facility], [facility] [address] [place] [address] Melissa Wiley NP End stage renal disease; Dependence on renal dialysis 03/25/2025 Orders Only [place] [facility], [facility] [address] [place] [address] Chey Navas MD 03/18/2025 [facility], [facility] [address] [place] [address] Chey Navas MD 03/16/[address] [place], [place] [address]rology [facility], [facility] [address] [place] [address] Chey Navas MD End stage renal disease; Dependence on renal dialysis 03/11/2025 Orders Only [place] [facility], [facility] [address] [place] [address] Chey Navas MD 03/09/[address] [place] [address] [facility], [facility] [address] [place] [address] Melissa Wiley NP End stage renal disease; Dependence on renal dialysis 03/04/2025 Orders Only [place], [facility] [address] [place] [address] Chey Navas MD 03/02/2025 Orders Only [place], [facility] [address] [place] [address] Chey Navas MD 03/02/[address] [place] [address] [facility], [facility] [address] [place] [address] Melissa Wiley NP End stage renal disease; Dependence on renal dialysis 02/18/2025 Orders Only [place] [facility], [facility] [address] [place] [address] Chey Navas MD 02/11/2025 [facility], [facility] [address] [place] [address] Chey Navas MD 02/09/[address] [place] [address], [facility] [address] [place] [address] Chey Navas MD End stage renal disease; Dependence on renal dialysis 02/04/2025 [facility], [facility] [address] [place] [address] Chey Navas MD 02/02/[address] [place], [place] [address]rology [facility], [place] [address] [place] [address] Karlene Cespedes NP End stage renal disease; Dependence on renal dialysis 01/28/[address] [place], [place] [address]rology [facility], [facility] [address] [place] [address] Melissa Wiley NP End stage renal disease; Dependence on renal dialysis 01/28/2025 Orders Only [place] [facility], [place] [address] [place] [address] Chey Navas MD from Last [...] 06/01/2025 025, 11/26/2024, 08/27/2024, Additional history exists Influenza Vaccine Completed 03/18/2025, 04/21/2024 Procedures Procedure Name Priority Date/Time Associated Diagnosis Comments HEMATOLOGY Routine 04/22/2025 HEMATOLOGY Routine 04/15/2025 CHEMISTRY Routine 04/13/2025 HEMATOLOGY [...] 01/28/2025 HEMATOLOGY Routine 01/28/2025 CHEMISTRY Routine 01/28/2025 from Last 3 Months Results * (ABNORMAL) HEMATOLOGY (04/22/2025) Only the most recent of12 resultswithin the time period is included. Hemoglobin 9.6(L) 12.0 - 16.0 g/dL [facility] Hemoglobin x 3 28.8(L) 36.0 - 48.0 % [facility] 04/22/2025 04/23/2025 9:0 0 AM CDT Narrative [facility] - 04/23/2025 Unless otherwise specified, test(s) performed at: [facility], [address] [place] [address] PAINTER DRUM: Jose Luis France M.D. For any questions, please call customer service at FREQUENCY:OTHER Resulting Agency Comment Specimen source: Blood Chey Navas MD LAB BLOOD ORDERABLES Final Re sult [facility] See order comments or contact performing lab Unknown, [place] * (ABNORMAL) [facility] (04/13/2025) Only the most recent of6 resultswithin the time period is included. PTH 561(H) 16 - 80 pg/mL [facility] 04/13/2025 04/14/2025 9:5 3 AM CDT Narrative [facility] - 04/14/2025 Unless otherwise specified, test(s) performed at: [facility], [address] [place], [place] [id number] PAINTER DRUM: Jose Luis France M.D. For any questions, please call customer service at FREQUENCY:OTHER Resulting Agency Comment Specimen source: Plasma us Chey Navas MD LAB BLOOD ORDERABLES Final Re sult Performing Organization Address [facility] de Phone Number [facility] See order comments or contact performing [...] [facility] de Phone Number [facility] See order comments or contact performing lab Unknown, [place] * (ABNORMAL) POST CHEMISTRY (03/25/2025) Only the most recent of3 resultswithin the time period is included. BUN Post Dialysis 5(L) 6 - 19 mg/dL [facility] 03/25/2025 03/26/2025 11: 23 AM CDT Narrative [facility] - 03/26/2025 Unless otherwise specified, test(s) performed at: [facility], [address] [place], [place] [id number] PAINTER DRUM: Jose Luis France M.D. For any questions, please call customer service at FREQUENCY:MONTHLY Resulting Agency Comment Specimen source: Plasma Chey Navas MD LAB BLOOD ORDERABLES Final Re sult [facility] See order comments or contact performing lab Unknown, [place] * [facility] Lab Results (03/25/2025) Only the most recent of3 resultswithin the time period is included. [facility] nPCR_HD 0.55 [facility] Center spKt/V (Daugirdas II) 1.80 [facility] eKt/V Gotch 1.54 [facility] e [place] eNPCR 0.52 [facility] eKdrt/V 1.54 [facility] PCR 27.03 [facility] WSTDKT/V 2.6 [facility] spKt/V Gotch 1.82 [facility] Center eKt/V (Tattersall) 1.55 [facility] 03/25/2025 03/25/[address] [facility] Ordering Provider LAB BLOOD ORDERABLES Final Result Performing Organization Address [facility]/ZIP Co de Phone Number [facility] Contact Performing lab Unknown, [place] * (ABNORMAL) SPECIAL CHEMISTRY (03/02/2025) [facility] Hemoglobin A1C 6.5(H) 4.8 - 5.9 % [facility] 03/02/2025 03/03/2025 11: 04 AM CDT Narrative Resulting Agency Comment Specimen source: Blood Chey Navas MD LAB BLOOD BANK TEST ORDERABLE S Final Result Performing Organization Address City/[facility]/ZIP Co de Phone Number [facility] See order comments or contact performing lab Unknown, [place] * IMMUNO CHEMISTRY (03/02/2025) [facility] Hepatitis C Antibody Nonreactive Nonreactive [facility] Comment: No HCV antibody detected. The above test result was obtained using Siemens Intri[employer]Plex [employer]aur XP chemiluminescent method. Results obtained with different assay methods or kits cannot be used interchangeably. S/CO Ratio 0.03 0.00 - 0.79 [facility] Comment: s/co ratio Interpretation Supplemental testing <0.80 Nonreactive No further testing required. 0.80-0.99 Equivocal HCV RNA Quantitative Real-Time PCR is recommended. 1.00->11.00 Reactive HCV RNA Quantitative Real-Time PCR is recommended to distinguish active from resolved cases. 03/02/2025 03/03/2025 11: 29 AM CDT Narrative [facility] - 03/03/2025 Unless otherwise specified, test(s) performed at: [facility], [address] [place], [place] [id number] PAINTER DRUM: Jose Luis France M.D. For any questions, please call customer service at FREQUENCY:MONTHLY Resulting Agency Comment Specimen source: Serum Chey Navas MD LAB BLOOD ORDERABLES Final Re sult Performing Organization Address [facility] de Phone Number [facility] See order comments or contact performing lab Unknown, [place] * TRACE ELEMENTS (03/02/2025) Aluminum 5 0 - 10 mcg/L [facility] Comment: This test was developed and its performance characteristics determined by [facility]. It has not been cleared or approved by the FDA. The laboratory is regulated under CLIA as qualified to perform high complexity testing. This test is used for clinical purposes. It should not be regarded as investigational or for research. 03/02/2025 03/03/2025 10: 54 AM CDT Narrative [facility] - 03/03/2025 Unless otherwise specified, test(s) performed at: [facility], [address] [place] [address] PAINTER DRUM: Jose Luis France M.D. For any questions, please call customer service at FREQUENCY:MONTHLY Resulting Agency Comment Specimen source: Serum Chey Navas MD LAB BLOOD ORDERABLES Final Re sult Performing Organization Address [facility] de Phone Number [facility] See order comments or contact performing lab Unknown, [place] from Last 3 Months Insurance Medicaid [place] ([id number]) Medicare Care Teams Multiple Sclerosis Nurse Relationship Specialty Start Date End Date Alexis Garcia MD [address] [place] [address] PCP - General Family Medicine 04/16/22
--- OUTSIDE RECORDS SUMMARY | 2025-04-28 18:00 | XMS_ITS | Encounter Summary ---
Author Organization [facility], [facility] Address [address] [place] [address] Phone Care Team Providers Care Press Service Reader Name Role Phone Alexis Garcia MD Primary Care Provider [phone] Encounter Details Date Type Department Care Team (Late st Contact Info) Description 12/29/2024 TCM in Dialysis Clinic [facility], [facility] [address] [place] [address] aYnn Lozano NP [address] [place] [address] Social History Tobacco Use Types [...] Donita Aguilar : 1985 C: [facility] Note Type: Dialysis TCM Service Date: 12/29/2024 The patient was seen for a [id number]-[id number] visit as part of Transitional Care Management services. Attending Customer Quality Specialist: MACHO JOHANSEN Dialysis Location: [facility] Schedule: Shift: 2 INTERACTIVE CONTACT This xzsh-fy-bxie visit occurred within 2 business days of the patient?s discharge. COMMENTS: Seen on HD machine during dialysis HOSPITALIZATION SUMMARY Patient transitioned from: Hospital Patient transitioned to: Home Admit Date: 12/26/2024 Discharge Date: 12/28/2024 Discharged info reviewed: No outstanding diagnostic tests and treatments Reason for admission: Admission Dx: CP Discharge Dx: Non-cardiac chest pain ESRD Atherosclerotic heart disease of [place] coronary artery with other forms of angina [...] Three times a day With Meals. [facility] Allergies Allergen: acetaminophen Reaction: Nausea/Vomiting TREATMENT MEDICATIONS [...] to follow with cardiology, pcp, pulmonology and college or university registrar as noted on discharge. EDUCATION Education relevant [...] or secondary infection VISIT DIAGNOSES CPT Code 37323 - High complexity, seen within 7 days of discharge. I20.9 Angina pectoris (HCC) COMMENTS: Verified she has nitroglycerin on hand at home: reviewed appropriate usage. Instructed to call cardiology for follow up appointment K76.0 Fatty (change of) liver, not elsewhere classified COMMENTS: Newly dx on imaging. Per hospital records, has been referred to college or university registrar. Monitor for liver dysfunction, assess for any needed support J18.9 Pneumonia, unspecified organism COMMENTS: Monitor for impaired perfusion, fever/chills, increased SOB. If symptoms present, send for CXray. Advised to call pulmonology for follow up as referred by hospital I25.118 Atherosclerotic heart disease of [place] coronary artery with other forms of angina pectoris COMMENTS: RCA is moderate size and caliber vessel which is dominant had proximal 40% stenosis. Left main has luminal irregularity with distal 10% stenosis. Cardiology recommended medical management. Negative for angina on assessment today Reviewed symptoms, usage of nitro: instructed to call cardiology for follow up appt. I24.710 Atherosclerosis of other coronary artery bypass graft(s) [...] on filedocumented in this encounter Care Teams Press Service Reader Relationship Specialty Start Date End Date Alexis Garcia MD [address] [place] [address] PCP - General Family Medicine 04/16/22 documented as of this encounter
--- OUTSIDE RECORDS SUMMARY | 2025-04-28 18:00 | XMS_ITS | Clinical Summary ---
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 Gender Identity Not on file Sexual [...] 10/11/1999, 09/06/1999 Medical Devices Implanted Type Area Service Shop Foreman Device Identifier Shelf Expiration Date Model / Serial / Lot Max tracy Flour [id number] - [id number] Implanted:Qty: 2 on 12/17/2016 by Deandre Alan MD at [facility] Biological Left: Lung [employer] 09/19/2019 [id number] / / [id number] Control Implant Funmi Procedures Procedure Name Priority Date/Time Associated Diagnosis Comments HEMOGLOBIN A1C Routine 01/09/2017 2:52 AM CDT from Last 3 Months or Most Recently Relevant to Health Maintenance Results * (ABNORMAL) HEMOGLOBIN A1C (01/09/2017 2:52 AM CDT) HEMOGLOBIN A1C 8.9(H) 4.0 - 6.0 % 01/09/2017 1:31 PM CDT [facility] EST. AVG GLUCOSE, A1C 209 mg/dL 01/09/2017 1:31 PM CDT [facility] Blood 01/09/2017 2:52 AM CDT 01/09/2017 6:53 AM CDT Narrative [facility] - 01/09/2017 1:31 PM CDT Test performed on [employer] instrumentation using HPLC methodology us Izabela Diamond MD CHEMISTRY ORDERABLES Final Res ult [facility] CLIA# [id number] [address] [place] [address] from Last 3 Months or Most Recently Relevant to Health Maintenance Insurance [place], [place] [id number] [place] [address] MEDICAID Advance Directives For more information, please contact: [phone] * Full Code (Latest Code Status on File) Date Activated Date Inactivated Comments 12/17/2016 1:05 PM 12/27/2016 11:32 PM Care Teams Speeder Worker Relationship Specialty Start Date End Date Shravan Jones DO PCP - General Family Practice 12/04/16
--- OUTSIDE RECORDS SUMMARY | 2025-04-28 18:00 | XMS_ITS | Encounter Summary ---
Author Organization [facility], [facility] Address [address] [place] [address] Phone Care Team Providers Care Diesel Engine Operator Name Role Phone Alexis Garcia MD Primary Care Provider [phone] Encounter Details Date Type Department Care Team (Late st Contact Info) Description 04/22/2025 Orders Only [facility] [address] [place] [address] Chey Nvaas MD [address] [place] [address] Social History Tobacco Use Types [...] Date/Time Associated Diagnosis Comments HEMATOLOGY Routine 04/22/2025 documented in this encounter Results * (ABNORMAL) HEMATOLOGY (04/22/2025) Hemoglobin 9.6(L) 12.0 - 16.0 g/dL [facility] Hemoglobin x 3 28.8(L) 36.0 - 48.0 % [facility] 04/22/2025 04/23/2025 9:0 0 AM CDT Narrative [facility] - 04/23/2025 Unless otherwise specified, test(s) performed at: [facility], [address] [place] [address] MINING CONSULTANT: Jose Luis France M.D. For any questions, please call customer service at FREQUENCY:OTHER Resulting Agency Comment Specimen source: Blood us Chey Navas MD LAB BLOOD ORDERABLES Final Re sult [facility] See order comments or contact performing lab Unknown, [place] documented in this encounter Visit Diagnoses Not on filedocumented in this encounter Care Teams Diesel Engine Operator Relationship Specialty Start Date End Date Alexis Garcia MD [address] [place] [address] PCP - General Family Medicine 04/16/22 documented as of this encounter
--- OUTSIDE RECORDS SUMMARY | 2025-04-28 18:00 | XMS_ITS | Encounter Summary ---
Author Organization [facility] Address 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 [place] [address] Abel Menon DO [address] [facility] [address] [place] [address] documented as of this encounter Visit Diagnoses Not on filedocumented in this encounter Care Teams Records And Information Manager Relationship Specialty Start Date End Date Shravan Jones DO PCP - General Family Practice 12/04/16 documented as of this encounter
--- OUTSIDE RECORDS SUMMARY | 2025-04-28 18:00 | XMS_ITS | Encounter Summary ---
Author Organization [place] [facility], [facility] Address [address] [place] [address] Phone Care Team Providers Care Rn Plastic Surgery Name Role Phone Alexis Garcia MD Primary Care Provider [phone] Encounter Details Date Type Department Care Team (Late st Contact Info) Description 04/27/2025 [facility] [address] [place] [address] Yann Lozano NP [address] [place] [address] End stage renal disease; Dependence [...] Dialysis Note - Yann Lozano NP - 04/27/2025 12:00 AM CST Patient: Donita Aguilar : 1985 C: [facility] Note Type: Dialysis Rounds-Comp Service Date: 04/27/2025 This patient was personally seen [id number] for a complete visit as part of routine monthly dialysis care for end stage renal disease. Attending Resident Care Spec: MACHO JOHANSEN Dialysis Location: [facility] DIAL[facility] Schedule: Shift: 1 OVERVIEW Patient is stable. Patient has no complaints. COMMENTS: Seen on HD. VSS HOME MEDICATIONS [facility] Outpatient Medications amlodipine 5 mg tablet [...] sublingual Take 1 tablet under tongue as directed. [take every 5 min as needed for chest pain x 3 doses. Then call 911 if chest pain continues.] ranolazine 500 mg tablet extended release 12 hr Take 1 tablet by mouth every twelve hours. [TAKE 1 TABLET BY MOUTH EVERY 12 HOURS] Sevelamer Carbonate Tablet 800 mg tablet Take 1 Tablet By Mouth Three times a day With Meals. [facility] All[facility]en: acetaminophen Reaction: Nausea/Vomiting DIALYSIS PRESCRIPTION Treatment Data Treatment Date: 04/27/2025 started at: 6:17 AM Dialysate / Machine Temp (prescribed): 37.0*C Dialysate / Machine Temp (actual): 36.9*C BFR (prescribed): 350 BFR (actual): 350 DFR (prescribed): Manual 800 DFR (actual): 800 Prescribed Time: 03:30 EDW (kg): 62.8 Dialyzer: 160NRe Optiflux Dialysate: 2.0 K, 2.5 Ca, 1.0 Mg, 100 Dextrose (G2251) Sodium: 138 Bicarb: 36 Pre Dialysis Vitals Pre BP Sit: 160/96 Pre Wt (kg): 66.6 EDW Deviation (kg): 3.8 Temp: 97.3*F Current Dialysis Vitals BP Sit: 110/65 AP/VENEER REDRIER: 168/193 Pulse: 72 TREATMENT MEDICATIONS ORDERS Heparin Sodium (Porcine) 1,000 Units/mL Systemic 2000 units IVP Every Treatment 04/20/2025 - 04/19/2026 Iron Sucrose (Venofer) 50 mg IVP 1X Week During Dialysis 09/29/2024 - 09/28/2025 Mircera 50 mcg IVP Every 4 weeks During Dialysis 04/13/2025 - 04/12/2026 Vitamin D (Calcitriol) Oral 1.25 mcg ORAL 3X Week 04/20/2025 - 04/19/2026 BP AND FLUID ASSESSMENT Acceptable blood pressure. Fluid status acceptable. COMMENTS: Ordered UF profile 3 on dialysis to support fluid removal. BP stable Post BP Sit 125/81 - 04/24/2025 172/88 - 04/22/2025 169/87 - 04/20/2025 Post Wt (kg) 64.2 - 04/24/2025 63.5 - 04/22/2025 63.2 - 04/20/2025 EDW (kg) 62.8 - 04/24/2025 62.8 - 04/22/2025 62.8 - 04/20/2025 Deviation (kg) 1.4 - 04/24/2025 0.7 - 04/22/2025 0.4 - 04/20/2025 ADEQUACY ASSESSMENT spKt/V (Daugirdas II) 1.80 (03/25/25) 1.80 (03/02/25) 1.79 (01/28/25) eKdrt/V 1.54 (03/25/25) 1.50 (03/02/25) 1.56 (01/28/25) % Urea Reduction 79 (03/25/25) 80 (03/02/25) 78 (01/28/25) BUN 24 (03/25/25) 54 (03/02/25) 59 (01/28/25) BUN Post Dialysis 5 (03/25/25) 11 (03/02/25) 13 (01/28/25) Creatinine 6.27 (03/25/25) 9.18 (03/02/25) 6.56 (01/28/25) Bicarbonate (CO2) 28 (03/25/25) 22 (03/02/25) 24 (01/28/25) Sodium 135 (03/25/25) 136 (03/02/25) 137 (01/28/25) COMMENTS: No current clearance labs to review Missed Treatments 2 - Last 30 days 2 - Last 60 days Most recently missed on 04/17/2025 ACCESS ASSESSMENT Vascular access examined. AVF/AVG positive thrill/bruit. Current access is permanent and functioning well. COMMENTS: Stable, no concerns AVGraft Synthetic - Standard (PTFE) Left Upper Arm Active (In Use) - 10/12/2024 Placed - 08/10/2024 Access Flow 943 (01/19/25) 1140 (12/01/24) 1177 (11/17/24) ANEMIA ASSESSMENT Hemoglobin 9.6 (04/22/25) 9.5 (04/15/25) 9.8 (04/01/25) Iron Saturation (TSat) 53 (03/25/25) 55 (03/02/25) 51 (01/28/25) Ferritin 698 (03/02/25) 784 (11/26/24) 797 (11/19/24) Iron 118 (03/25/25) 125 (03/02/25) 109 (01/28/25) TIBC 224 (03/25/25) 227 (03/02/25) 212 (01/28/25) Reticulocyte Hemoglobin 30.5 (04/01/25) 31.8 (02/04/25) 34.0 (12/17/24) MCV 97 (03/25/25) 95 (03/02/25) 100 (01/28/25) Folate 6.0 (08/27/24) Vitamin B-12 572 (08/27/24) Platelets 133 (03/25/25) 207 (03/02/25) 135 (01/28/25) Anemia targets not met. Hemoglobin not at target. Continue current MAX dose. BMM ASSESSMENT Calcium 8.4 03/25/25 7.9 03/02/25 8.5 01/28/25 Corrected Calcium 8.9 03/25/25 8.3 03/02/25 8.9 01/28/25 Phosphorus 5.2 03/25/25 7.2 03/02/25 7.6 01/28/25 Calcium Phosphorus Product 44 03/25/25 57 03/02/25 65 01/28/25 PTH 561 04/13/25 804 03/02/25 797 01/28/25 Vitamin D, 25-OH, Total 6.7 08/27/24 Magnesium 2.0 03/02/25 2.0 11/26/24 2.0 08/27/24 Alkaline Phosphatase 130 03/02/25 131 11/26/24 120 08/27/24 Aluminum 5 03/02/25 ?5 08/27/24 COMMENTS: No current labs to review NUTRITION ASSESSMENT Albumin 3.4 03/25/25 3.5 03/02/25 3.5 01/28/25 Potassium 4.9 03/25/25 4.5 03/02/25 5.3 01/28/25 eNPCR 0.52 03/25/25 0.77 03/02/25 1.05 01/28/25 Glucose 177 03/25/25 233 03/02/25 163 01/28/25 Hemoglobin A1C 6.5 03/02/25 6.2 11/26/24 7.0 08/27/24 COMMENTS: No current labs to review PHYSICAL EXAM Exam not performed. COMMENTS: BP in goal on therapy today. Monitor for BP control ADDITIONAL LABS WBC 4.09 (03/25/25) 6.59 (03/02/25) 6.85 (01/28/25) Hepatitis B Surface Ab 10 (08/27/24) Signed by: YANN LOZANO NP on 04/27/2025 at 08:49:09 AM Transcribed by: YANN LOZANO NP on 04/27/2025 at 08:49:09 AM documented in this encounter Plan of Treatment Not on file documented as of this encounter Visit Diagnoses Diagnosis End stage renal disease Dependence on renal dialysis documented in this encounter Care Teams Rn Plastic Surgery Relationship Specialty Start Date End Date Alexis Garcia MD [address] [place] [address] PCP - General Family Medicine 04/16/22 documented as of this encounter
--- OUTSIDE RECORDS SUMMARY | 2025-04-28 18:00 | XMS_ITS | Encounter Summary ---
Author Organization [facility], [facility] Address [address] [place] [address] Phone Care Team Providers Care Helper/Driver Name Role Phone Alexis Garcia MD Primary Care Provider [phone] Encounter Details Date Type Department Care Team (Late st Contact Info) Description 04/20/2025 Treatment [facility], [facility] [address] [place] [address] Chey Navas MD [address] [place] [address] End stage renal disease; Dependence [...] Donita Aguilar, 1985, 39y, F Dialysis Location: [facility] Attending Learning And Development Coordinator: Chey Navas Service Date: 04/20/2025 Service Provider: Chey Navas MD I met face to face with the patient today. OVERVIEW The patient presented with ESRD on dialysis Primary cause of renal failure: Type 1 diabetes mellitus with diabetic chronic kidney disease Comments: VSS, seen on HD machine Hx ESRD secondary to DM I. She did start dialysis about during a hospitalization in [place], [place]. Hx of meth us. She did [...] dialysis documented in this encounter Care Teams Helper/Driver Relationship Specialty Start Date End Date Alexis Garcia MD [address] [place] [address] PCP - General Family Medicine 04/16/22 documented as of this encounter
--- OUTSIDE RECORDS SUMMARY | 2025-04-28 18:01 | XMS_ITS | Encounter Summary ---
Author Organization [facility] Address [address] [place] [address] Care Team Providers Care Traffic Observer Name Role Phone Shravan Jones DO Primary Care Provider [phone] Reason for Visit * Reason Onset Date Comments Appointment Notification 11/05/2023 Encounter Details Date Type Department Care Team (Late st Contact Info) Description 11/05/2023 Telephone [facility] [address] [place] [address] Janell Beauchamp MD [address] [place] [address] Appointment Notification Social History Tobacco Use Types Packs/Day Years Used Date Smoking Tobacco: Every Day Comments:Quit smoking: pt le thargic Social Connections Answer Date Recorded In a typical week, how many times do you talk on the telephone with family, friends, or neighbors? 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 For 11/25 as she has other appts in town that day. Please call pt to reschedule. [facility] Farm Service Consultant: Patrica Barney documented in this encounter Plan of Treatment Upcoming Encounters Date Type Department Care Team (Late st Contact Info) Description 05/19/2025 9:30 AM WEDDING COORDINATOR Office Visit [facility] Gastroenterology- [place] [address] [place] [address] Abel Menon DO [address] [place] [address] documented as of this encounter Visit Diagnoses Not on filedocumented in this encounter Additional Health Concerns Infection Onset Date Last Indicated Resolved Time R/O C. diff 07/06/2024 07/06/2024 07/06/2024 8:35 AM WEDDING COORDINATOR documented as of this encounter Care Teams Traffic Observer Relationship Specialty Start Date End Date Shravan Jones DO PCP - General Family Practice 12/04/16 documented as of this encounter
--- OUTSIDE RECORDS SUMMARY | 2025-04-28 18:01 | XMS_ITS | Encounter Summary ---
Author Organization [facility] Address [address] [place] [address] Care Team Providers Care Mold Polisher Name Role Phone Shravan Jones DO Primary Care Provider [phone] Encounter Details Date Type Department Care Team (Late st Contact Info) Description 12/31/2016 Lab Requisition 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 - 12/31/2016 5:52 AM CDT Due to Degreasing Solution Mixer update, MG+ reference range has changed from 1.8 - 2.4 mg/dL to the new reference range of 1.6 - 2.6 mg/dL. This will have limited patient impact. us David Ortega MD CHEMISTRY ORDERABLES Final Res ult [facility] CLIA# [id number] [address] [place] [address] * (ABNORMAL) COMPREHENSIVE METABOLIC PANEL (12/31/2016 2:26 AM CDT) SODIUM 138 136 - 145 mmol/L 12/31/2016 5:52 AM CDT [facility] POTASSIUM 4.7 3.5 - 5.1 mmol/L 12/31/2016 5:52 AM [facility] CHLORIDE 102 98 - 107 mmol/L 12/31/2016 5:52 AM T [facility] CO2 27 21 - 32 mmol/L 12/31/2016 5:52 AM T [facility] CALCIUM 9.1 8.4 - 10.1 mg/dL 12/31/2016 5:52 AM T [facility] BUN 17 7 - 17 mg/dL 12/31/2016 5:52 AM T [facility] CREATININE 0.87 0.55 - 1.02 mg/dL 12/31/2016 5:52 AM T [facility] GLUCOSE 214(H) 74 - 106 mg/dL 12/31/2016 5:52 AM T [facility] TOTAL PROTEIN 8.2 6.4 - 8.2 g/dL 12/31/2016 5:52 AM T [facility] ALBUMIN 1.9(L) 3.4 - 5.0 g/dL 12/31/2016 5:52 AM CDT [facility] BILIRUBIN TOTAL 0.2 0.2 - 1.0 mg/dL 12/31/2016 5:52 AM CDT [facility] ALKALINE PHOSPHATASE 95 25 - 100 U/L 12/31/2016 5:52 AM CDT [facility] AST 9(L) 15 - 37 U/L 12/31/2016 5:52 AM CDT [facility] ALT 14 13 - 61 U/L 12/31/2016 5:52 AM CDT [facility] GFR >60 >=60 mL/min/1.7 3 sq meter 12/31/2016 5:52 AM T [facility] Comment: eGFR has not been [...] 3 sq meter 12/31/2016 5:52 AM CDT [facility] ANION GAP 9 4 - 30 mmol/L 12/31/2016 5:52 AM T [facility] Blood 12/31/2016 2:26 AM CDT 12/31/2016 5:17 AM CDT us David Ortega MD CHEMISTRY ORDERABLES Final Res ult [facility] CLIA# [id number] [address] [place] [address] * (ABNORMAL) CBC WITH DIFFERENTIAL (12/31/2016 2:26 AM CDT) WBC 13.7(H) 4.5 - 11.0 K/uL 12/31/2016 6:32 AM [facility] RBC 3.66(L) 4.20 - 5.40 M/uL 12/31/2016 6:32 AM [facility] HEMOGLOBIN 9.3(L) 12.0 - 16.0 g/dL 12/31/2016 6:32 AM [facility] [employer] [facility] HEMATOCRIT 29.6(L) 36.0 - 46.0 % 12/31/2016 6:32 AM [facility] [employer] [facility] MCV 80.9(L) 84.0 - 103.0 fL 12/31/2016 6:32 AM [facility] [employer] [facility] MCH 25.4(L) 27.0 - 34.0 pg 12/31/2016 6:32 AM [facility] MCHC 31.4 30.0 - 35.0 g/dL 12/31/2016 6:32 AM [facility] [employer] [facility] RDW 17.4(H) 11.0 - 14.5 % 12/31/2016 6:32 AM [facility] [employer] [facility] RDW-STDEV 52.1 37.0 - 54.0 fL 12/31/2016 6:32 AM [facility] [employer] [facility] PLATELETS 767(H) 140 - 440 K/uL 12/31/2016 6:32 AM [facility] [employer] [facility] MPV 9.0 8.9 - 12.8 fL 12/31/2016 6:32 AM [facility] [employer] [facility] NEUTROPHILS 68 42 - 75 % 12/31/2016 6:32 AM [facility] [employer] [facility] LYMPHOCYTES 17(L) 24 - 44 % 12/31/2016 6:32 AM [facility] [employer] [facility] MONOCYTES 8 2 - 10 % 12/31/2016 6:32 AM [facility] [employer] [facility] EOSINOPHILS 6 0 - 7 % 12/31/2016 6:32 AM [facility] [employer] [facility] BASOPHILS 0 0 - 1 % 12/31/2016 6:32 AM [facility] [employer] [facility] IMMATURE GRANULOCYTES 1 0 - 2 % 12/31/2016 6:32 AM CDT [facility] NEUTROPHIL ABSOLUTE 9.26(H) 2.00 - 8.00 K/uL 12/31/2016 6:32 AM CDT [facility] LYMPHOCYTE ABSOLUTE 2.28 1.20 - 4.00 K/uL 12/31/2016 6:32 AM CDT [facility] MONOCYTE ABSOLUTE 1.07(H) 0.10 - 0.60 K/uL 12/31/2016 6:32 AM CDT [facility] EOSINOPHIL ABSOLUTE 0.82(H) 0.00 - 0.70 K/uL 12/31/2016 6:32 AM CDT [facility] BASOPHILS ABSOLUTE 0.06 0.00 - 0.20 K/uL 12/31/2016 6:32 AM CDT [facility] IMMATURE GRANULOCYTES ABSOLUTE 0.17(H) 0.00 - 0.10 K/uL 12/31/2016 6:32 AM CDT [facility] Blood 12/31/2016 2:26 AM CDT 12/31/2016 5:17 AM CDT Narrative [facility] - 12/31/2016 6:32 AM CDT Smear reviewed us David Ortega MD HEMATOLOGY ORDERABLES Final Re sult [facility] CLIA# [id number] [address] [place] [address] documented in this encounter Visit Diagnoses Not on filedocumented in this encounter Care Teams Mold Polisher Relationship Specialty Start Date End Date Shravan Jones DO PCP - General Family Practice 12/04/16 documented as of this encounter
--- OUTSIDE RECORDS SUMMARY | 2025-04-28 18:01 | XMS_ITS | Encounter Summary ---
Author Organization [facility] Address 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 [place] [address] Abel Menon DO [address] [facility] [address] [place] [address] documented as of this encounter Visit Diagnoses Not on filedocumented in this encounter Care Teams Backup Administrative Coordinator Relationship Specialty Start Date End Date Shravan Jones DO PCP - General Family Practice 12/04/16 documented as of this encounter
--- OUTSIDE RECORDS SUMMARY | 2025-04-28 18:01 | XMS_ITS | Encounter Summary ---
Author Organization [facility] Address [address] [place] [address] Care Team Providers Care Motorcycle Subassembly Repairer Name Role Phone Shravan Jones DO Primary Care Provider [phone] Encounter Details Date Type Department Care Team (Late st Contact Info) Description 01/07/2017 Lab Requisition [facility] Laboratory Services [address] [place] [address] David Ortega MD [address] [place] [address] Social History Tobacco Use Types Packs/Day Years Used Date Smoking Tobacco: Every Day Cigarettes Comments:pt lethargic Comments Unknown Sex and Gender Information Value Date Recorded Sex Assigned at Not on file Legal Sex Female 4:38 AM CHIEF OPERATOR HYDROFORMER Gender Identity Not on file Sexual Orientation Not on file documented as of this encounter Plan of Treatment Not on file documented as of this encounter Visit Diagnoses Not on filedocumented in this encounter Care Teams Motorcycle Subassembly Repairer Relationship Specialty Start Date End Date Shravan Jones DO PCP - General Family Practice 12/04/16 documented as of this encounter
--- OUTSIDE RECORDS SUMMARY | 2025-04-28 18:01 | XMS_ITS | Encounter Summary ---
Author Organization [facility] Address [address] [place] [address] Care Team Providers Care Data Analytics Developer Name Role Phone Shravan Jones DO Primary Care Provider [phone] Encounter Details Date Type Department Care Team (Late st Contact Info) Description 01/07/2017 Lab Requisition [facility] [address] [place] [address] David Ortega MD [address] [place] [address] Social History Tobacco Use Types Packs/Day Years Used Date Smoking Tobacco: Every Day Cigarettes Comments:pt lethargic Comments Unknown Sex and Gender Information Value Date Recorded Sex Assigned at Not on file Legal Sex Female 4:38 AM AIRFRAME TECHNICIAN Gender Identity Not on file Sexual [...] Not Detected 01/07/2017 8:[address] [facility] Stool STOOL SPECIMEN / Unknown 01/07/2017 1:54 PM CDT 01/07/2017 6:53 PM CDT Narrative [facility] - 01/07/2017 8:08 PM CDT This assay [...] - GENERAL ORDERAB LES Final Result [facility] CLIA# [id number] [address] [place] [address] documented in this encounter Visit Diagnoses Not on filedocumented in this encounter Care Teams Data Analytics Developer Relationship Specialty Start Date End Date Shravan Jones DO PCP - General Family Practice 12/04/16 documented as of this encounter
--- OUTSIDE RECORDS SUMMARY | 2025-04-28 18:01 | XMS_ITS | Encounter Summary ---
[facility] Organization [facility] Address [address] [place] [address] Care Team Providers Care Director Business Integration Name Role Phone Shravan Jones DO Primary Care Provider [phone] Encounter Details Date Type Department Care Team (Late st Contact Info) Description 01/07/2017 Lab Requisition [facility] Laboratory Services [address] [place] [address] Izabela Diamond MD NO ADDRESS ON FILE Social History Tobacco Use Types Packs/Day Years Used Date Smoking Tobacco: Every Day Cigarettes Comments:pt lethargic Comments Unknown Sex and Gender Information Value Date Recorded Sex Assigned at Not on file 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 Gender Identity Not on file Sexual [...] mg/dL 01/07/2017 5:27 AM CDT [facility] Blood 01/07/2017 2:23 AM CDT 01/07/2017 5:01 AM CDT Izabela Diamond MD CHEMISTRY ORDERABLES Final Res ult Performing Organization Address City/[facility]/ZIP Co de Phone Number [facility] CLIA# [id number] [address] [place] [phone] * (ABNORMAL) C-REACTIVE PROTEIN (01/07/2017 2:23 AM CDT) CRP 16.6(H) 0.0 - 2.9 mg/L 01/07/2017 5:27 AM CDT [facility] Blood 01/07/2017 2:23 AM CDT 01/07/2017 5:01 AM CDT Izabela Diamond MD CHEMISTRY ORDERABLES Final Res ult Performing Organization Address [facility] Co de Phone Number [facility] CLIA# [id number] [address] [place] [phone] * (ABNORMAL) BASIC METABOLIC PANEL (01/07/2017 2:23 AM CDT) SODIUM 139 136 - 145 mmol/L 01/07/2017 5:27 AM CDT [facility] [employer] [facility] POTASSIUM 4.1 3.5 - 5.1 mmol/L 01/07/2017 5:27 AM CDT [facility] [employer] [facility] CHLORIDE 104 98 - 107 mmol/L 01/07/2017 5:27 AM CDT [facility] [employer] [facility] CO2 26 21 - 32 mmol/L 01/07/2017 5:27 AM CDT [facility] [employer] [facility] CALCIUM 9.1 8.4 - 10.1 mg/dL 01/07/2017 5:27 AM CDT [facility] [employer] [facility] BUN 14 7 - 17 mg/dL 01/07/2017 5:27 AM CDT [facility] CREATININE 0.82 0.55 - 1.02 mg/dL 01/07/2017 5:27 AM T [facility] GLUCOSE 274(H) 74 - 106 mg/dL 01/07/2017 5:27 AM T [facility] GFR >60 >=60 mL/min/1.7 3 sq meter 01/07/2017 5:27 AM T [facility] [...] sq meter 01/07/2017 5:27 AM T [facility] ANION GAP 9 4 - 30 mmol/L 01/07/2017 5:[address] [facility] Blood 01/07/2017 2:23 AM CDT 01/07/2017 5:01 AM CDT us Izabela Diamond MD CHEMISTRY ORDERABLES Final Res ult [facility] CLIA# [id number] [address] [place] [phone] * (ABNORMAL) CBC WITH DIFFERENTIAL (01/07/2017 2:23 AM CDT) WBC 9.3 4.5 - 11.0 K/uL 01/07/2017 5:27 AM CDT [facility] RBC 4.19(L) 4.20 - 5.40 M/uL 01/07/2017 5:27 AM CDT [facility] HEMOGLOBIN 10.3(L) 12.0 - 16.0 g/dL 01/07/2017 5:[address] [facility] HEMATOCRIT 33.2(L) 36.0 - 46.0 % 01/07/2017 5:[address] [facility] MCV 79.2(L) 84.0 - 103.0 fL 01/07/2017 5:[address] [facility] MCH 24.6(L) 27.0 - 34.0 pg 01/07/2017 5:[address] [facility] MCHC 31.0 30.0 - 35.0 g/dL 01/07/2017 5:[address] [facility] RDW 17.2(H) 11.0 - 14.5 % 01/07/2017 5:[address] [facility] RDW-STDEV 49.4 37.0 - 54.0 fL 01/07/2017 5:[address] [facility] PLATELETS 545(H) 140 - 440 K/uL 01/07/2017 5:[address] [facility] MPV 10.2 8.9 - 12.8 fL 01/07/2017 5:[address] [facility] NEUTROPHILS 53 42 - 75 % 01/07/2017 5:[address] [facility] LYMPHOCYTES 26 24 - 44 % 01/07/2017 5:[address] [facility] MONOCYTES 9 2 - 10 % 01/07/2017 5:[address] [facility] EOSINOPHILS 11(H) 0 - 7 % 01/07/2017 5:[address] [facility] BASOPHILS 1 0 - 1 % 01/07/2017 5:[address] [facility] IMMATURE GRANULOCYTES 0 0 - 2 % 01/07/2017 5:[address] [facility] NEUTROPHIL ABSOLUTE 4.88 2.00 - 8.00 K/uL 01/07/2017 5:[address] [facility] LYMPHOCYTE ABSOLUTE 2.45 1.20 - 4.00 K/uL 01/07/2017 5:[address] [facility] MONOCYTE ABSOLUTE 0.79(H) 0.10 - 0.60 K/uL 01/07/2017 5:27 AM CDT [facility] EOSINOPHIL ABSOLUTE 1.01(H) 0.00 - 0.70 K/uL 01/07/2017 5:27 AM CDT [facility] BASOPHILS ABSOLUTE 0.11 0.00 - 0.20 K/uL 01/07/2017 5:27 AM CDT [facility] IMMATURE GRANULOCYTES ABSOLUTE 0.04 0.00 - 0.10 K/uL 01/07/2017 5:27 AM CDT [facility] Blood 01/07/2017 2:23 AM CDT 01/07/2017 5:01 AM CDT us Izabela Diamond MD HEMATOLOGY ORDERABLES Final Re sult [facility] CLIA# [id number] [address] [place] [phone] documented in this encounter Visit Diagnoses Not on filedocumented in this encounter Care Teams Director Business Integration Relationship Specialty Start Date End Date Shravan Jones DO PCP - General Family Practice 12/04/16 documented as of this encounter
--- OUTSIDE RECORDS SUMMARY | 2025-04-28 18:01 | XMS_ITS | Encounter Summary ---
Author Organization [facility] Address [address] [place] [address] Care Team Providers Care Security Messenger Name Role Phone Shravan Jones DO Primary Care Provider Encounter Details Date Type Department Care Team (Late st Contact Info) Description 12/28/2016 Lab Requisition [facility] Laboratory Services [address] [place] [address] David Ortega MD [address] [place] [address] Social History Tobacco Use Types Packs/Day Years Used Date Smoking Tobacco: Every Day Cigarettes Comments:pt lethargic Comments Unknown Sex and Gender Information Value Date Recorded Sex Assigned at Not on file 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 Gender Identity Not on file Sexual [...] - 4.9 mg/dL 12/28/2016 5:42 AM CDT [facility] Blood Collection / Unknown 12/28/2016 2:39 AM CDT 12/28/2016 5:01 AM CDT David Ortega MD CHEMISTRY ORDERABLES Final Res ult Performing Organization Address [facility] Co de Phone Number [facility] CLIA# [id number] [address] [place] [phone] * MAGNESIUM LEVEL (12/28/2016 2:39 AM CDT) [facility] MAGNESIUM 1.6 1.6 - 2.6 mg/dL 12/28/2016 5:42 AM CDT [facility] Blood Collection / Unknown 12/28/2016 2:39 AM CDT 12/28/2016 5:01 AM CDT Narrative [facility] - 12/28/2016 5:42 AM CDT Due to Heel Brusher update, MG+ reference range has changed from 1.8 - 2.4 mg/dL to the new reference range of 1.6 - 2.6 mg/dL. This will have limited patient impact. David Ortega MD CHEMISTRY ORDERABLES Final Res ult Performing Organization Address [facility] Co de Phone Number [facility] CLIA# [id number] [address] [place] [phone] * PROTIME-INR (12/28/2016 2:39 AM CDT) [facility] PROTIME 15.0 12.3 - 15.5 Seconds 12/28/2016 5:16 AM CDT [facility] INR 1.1 0.8 - 1.2 12/28/2016 5:16 AM CDT [facility] Blood Collection / Unknown 12/28/2016 2:39 AM CDT 12/28/2016 5:01 AM CDT [place] [facility] - 12/28/2016 5:16 AM CDT Expected Values for INR: DVT/PE Goal INR 2.5; range 2.0 - 3.0 Valve Replacement Tissue Goal INR 2.5; range 2.0 - 3.0 Valve Replacement Mechanical Goal INR 3.0; range 2.5 - 3.5 POST-KS Goal INR 2.5; range 2.0 - 3.0 or Goal INR 3.0; range 2.5 - 3.5 Atrial Fibrillation Goal INR 2.5; range 2.0 - 3.0 Ischemic Stroke Goal INR 2.5; range 2.0 - 3.0 For additional information see Guidelines for Anticoagulation available from the pharmacy Wendy Vargas Pharm D. David Ortega MD HEMATOLOGY ORDERABLES Final Re sult [facility] CLIA# [id number] [address] [place] [phone] * (ABNORMAL) PTT (12/28/2016 2:39 AM CDT) PTT 39.1(H) 24.8 - 38.8 seconds 12/28/2016 5:16 AM CDT [facility] Blood Collection / Unknown 12/28/2016 2:39 AM CDT 12/28/2016 5:01 AM CDT [place] [facility] - 12/28/2016 5:16 AM CDT Therapeutic Range: Hi-level PE/DVT heparin protocol 80.1 - 95.0 sec Lo-level PE/DVT heparin protocol 70.1 - 85.0 sec Cardiac Heparin Protocol 70.1 - 100.0 sec David Ortega MD HEMATOLOGY ORDERABLES Final Re sult [facility] CLIA# [id number] [facility] [place] [address] * (ABNORMAL) CBC WITH DIFFERENTIAL (12/28/2016 2:39 AM CDT) Pathologist [facility] WBC 11.0 4.5 - 11.0 K/uL 12/28/2016 5:09 AM CDT [facility] RBC 3.80(L) 4.20 - 5.40 M/uL 12/28/2016 5:09 AM CDT [facility] HEMOGLOBIN 9.3(L) 12.0 - 16.0 g/dL 12/28/2016 [facility] 30.6(L) 36.0 - 46.0 % 12/28/2016 5:09 AM CDT [facility] MCV 80.5(L) 84.0 - 103.0 fL 12/28/2016 5:09 AM CDT [facility] MCH 24.5(L) 27.0 - 34.0 pg 12/28/2016 5:09 AM CDT [facility] MCHC 30.4 30.0 - 35.0 g/dL 12/28/2016 5:09 AM CDT [facility] RDW 17.3(H) 11.0 - 14.5 % 12/28/2016 5:09 AM T [facility] RDW-STDEV 51.8 37.0 - 54.0 fL 12/28/2016 5:09 AM CDT [facility] PLATELETS 757(H) 140 - 440 K/uL 12/28/2016 5:09 AM CDT [facility] MPV 8.9 8.9 - 12.8 fL 12/28/2016 5:09 AM CDT [facility] NEUTROPHILS 65 42 - 75 % 12/28/2016 5:09 AM CDT [facility] LYMPHOCYTES 19(L) 24 - 44 % 12/28/2016 5:09 AM CDT [facility] MONOCYTES 10 2 - 10 % 12/28/2016 5:09 AM CDT [facility] EOSINOPHILS 5 0 - 7 % 12/28/2016 5:09 AM CDT [facility] BASOPHILS 1 0 - 1 % 12/28/2016 5:09 AM CDT [facility] IMMATURE GRANULOCYTES 1 0 - 2 % 12/28/2016 5:09 AM CDT [facility] NEUTROPHIL ABSOLUTE 7.19 2.00 - 8.00 K/uL 12/28/2016 5:09 AM CDT [facility] LYMPHOCYTE ABSOLUTE 2.04 1.20 - 4.00 K/uL 12/28/2016 5:09 AM CDT [facility] MONOCYTE ABSOLUTE 1.06(H) 0.10 - 0.60 K/uL 12/28/2016 5:09 AM CDT [facility] EOSINOPHIL ABSOLUTE 0.60 0.00 - 0.70 K/uL 12/28/2016 5:09 AM CDT [facility] BASOPHILS ABSOLUTE 0.07 0.00 - 0.20 K/uL 12/28/2016 5:09 AM CDT [facility] IMMATURE GRANULOCYTES ABSOLUTE 0.07 0.00 - 0.10 K/uL 12/28/2016 5:09 AM T [facility] Blood Collection / Unknown 12/28/2016 2:39 AM CDT 12/28/2016 5:01 AM CDT us David Ortega MD HEMATOLOGY ORDERABLES Final Re sult [facility] CLIA# [id number] [address] [place] [phone] * (ABNORMAL) COMPREHENSIVE METABOLIC PANEL (12/28/2016 2:39 AM CDT) SODIUM 143 136 - 145 mmol/L 12/28/2016 5:47 AM CDT [facility] POTASSIUM 3.3(L) 3.5 - 5.1 mmol/L 12/28/2016 5:47 AM [facility] CHLORIDE 103 98 - 107 mmol/L 12/28/2016 5:47 AM [facility] CO2 29 21 - 32 mmol/L 12/28/2016 5:47 AM [facility] CALCIUM 8.9 8.4 - 10.1 mg/dL 12/28/2016 5:47 AM [facility] BUN 13 7 - 17 mg/dL 12/28/2016 5:47 AM [facility] CREATININE 0.70 0.55 - 1.02 mg/dL 12/28/2016 5:47 AM [facility] GLUCOSE 46(LL) 74 - 106 mg/dL 12/28/2016 5:47 AM [facility] TOTAL PROTEIN 8.2 6.4 - 8.2 g/dL 12/28/2016 5:47 AM [facility] ALBUMIN 1.8(L) 3.4 - 5.0 g/dL 12/28/2016 5:47 AM [facility] BILIRUBIN TOTAL 0.2 0.2 - 1.0 mg/dL 12/28/2016 5:47 AM [facility] ALKALINE PHOSPHATASE 93 25 - 100 U/L 12/28/2016 5:47 AM [facility] AST 18 15 - 37 U/L 12/28/2016 5:47 AM [facility] ALT 18 13 - 61 U/L 12/28/2016 5:47 AM [facility] GFR >60 >=60 mL/min/1.7 3 sq meter 12/28/2016 5:47 AM [facility] Comment: eGFR has not been [...] 3 sq meter 12/28/2016 5:47 AM CDT [facility] ANION GAP 11 4 - 30 mmol/L 12/28/2016 5:47 AM CDT [facility] Blood Collection / Unknown 12/28/2016 2:39 AM CDT 12/28/2016 5:01 AM CDT us David Ortega MD CHEMISTRY ORDERABLES Final Res ult [facility] CLIA# [id number] [address] [place] [address] documented in this encounter Visit Diagnoses Not on filedocumented in this encounter Care Teams Security Messenger Relationship Specialty Start Date End Date Shravan Jones DO PCP - General Family Practice 12/04/16 documented as of this encounter
--- OUTSIDE RECORDS SUMMARY | 2025-04-28 18:01 | XMS_ITS | Data Portability ---
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 2023 XIMENA coles, [facility] 4 12:27:02 Anemia 480464009 Active 2023 ELIZABETH HOUSER, [facility] [address] [place], [address], [facility] 5 11:47:10 Female pelvic inflamma tory disease 997988462 Active 2023 XIMENA coles [facility] 4 12:28:16 Mixed anxiety and depressi ve disorder 237561261 Active 2023 XIMENA coles [facility] 4 12:28:28 Pancreat itis 69133178 Active 2023 XIMENA coles [facility] 4 12:28:40 Diabetic ketoacid osis 957921476 Active 2023 recurren t XIMENA coles [facility] 4 12:28:57 Migraine 44247481 Active 2023 ELIZABETH HOUSER, [facility] [address] [place], [address], [facility] 5 12:01:02 Cardiome enoch 5174409 Active 2023 XIMENA coles [facility] 4 12:30:17 Edema 557008724 Active 2023 XIMENA coles [facility] 4 23:45:39 Edema due to fluid overload 279277990 Active 2023 XIMENA coles [facility], [place] 4 23:45:54 End stage renal failure on dialysis 292418300 Active 2023 ELIZABETH HOUSER, SUZANNE [address] [place], [address], [facility], [place] 11:47:10 Esophagi tis 21754891 Active 2024 XIMENA coles [facility], [place] 18:23:17 Chronic pain 19257642 Active 2024 Davian Ren MD [address] [place], [address], [facility] 09:12:38 Notes:Some problems listed i n Documents: #[id number], #[id number], #[id number], #[id number] could not be added to this patient's chart. Please review these documents and add these problems to the patient's chart manually as needed. Problem Notes None recorded. Procedures Surgical History Date Name Laterality Status Provider Name and Address Organization Details Recorded Time 04/22/20 25 plain X-ray of chest [facility] 04/26/2025 19:04:48 04/07/20 25 plain X-ray of chest completed XIMENA KEATING [facility], [facility] 04/08/2025 12:01:33 03/28/20 25 plain X-ray of chest completed [facility] 03/31/2025 11:10:09 03/21/20 25 plain X-ray of chest completed XIMENA KEATING [facility], [place] 03/31/2025 11:07:12 03/04/20 25 plain X-ray of chest completed XIMENA KEATING [facility] 03/31/2025 11:09:47 12/27/19 25 [address] of chest completed [facility] 12/27/2024 14:20:38 12/26/19 25 plain X-ray of chest completed [facility] 12/27/2024 14:13:55 11/11/19 25 plain X-ray of cervical spine completed [facility] 11/11/2024 12:44:02 10/01/19 25 angiography completed [facility], L.L.CJacobo 10/01/2024 18:38:18 09/27/19 25 plain X-ray of chest completed [facility], LJacoboL.CJacobo 09/27/2024 18:18:09 09/27/19 25 echocardiography completed [facility] 10/01/2024 18:33:00 09/22/19 25 ultrasonography of right breast completed [facility], L.L.CJacobo 09/21/2024 13:39:24 09/22/19 25 mammography completed [facility] 09/21/2024 13:40:36 09/11/[address] of abdomen completed [facility] L.L.CJacobo 09/13/2024 14:56:32 09/10/19 25 angiography of coronary artery completed [facility] L.L.CJacobo 09/13/2024 14:50:21 09/09/19 25 echocardiography completed [facility] 09/13/2024 14:54:55 09/08/19 25 plain X-ray of chest completed [facility], LJacoboLJacoboCJacobo 09/13/2024 14:57:51 08/24/[address] of chest completed [facility] 08/24/2024 12:28:02 04/28/20 24 plain X-ray of chest completed [facility], DonteL.C. 04/30/2024 11:08:42 03/31/20 24 plain X-ray of chest completed [facility], DonteLJacoboCJacobo 04/01/2024 14:05:05 03/27/20 24 imaging guided percutaneous transluminal angioplasty of coronary artery with contrast completed [facility], KaelynCJacobo 10/05/2024 10:23:19 02/28/20 24 radiographic procedure on chest and/or abdomen completed [facility], KaelynCJacobo 03/04/2024 15:02:31 02/28/[address] of abdomen completed [facility], DonteLJacoboCJacobo 03/04/2024 15:03:26 01/19/20 24 diagnostic radiography of abdomen completed [facility], DonteLJacoboCJacobo 01/21/2024 17:26:25 01/06/20 24 plain X-ray of chest completed [facility], LJacoboLJacoboCJacobo 01/07/2024 15:42:42 12/27/19 24 plain X-ray of chest completed [facility], LJacoboLJacoboCJacobo 12/29/2023 23:23:06 12/27/19 24 CT of chest, abdomen and pelvis completed [facility], LJacoboL.CJacobo 12/29/2023 23:32:58 12/24/19 24 plain X-ray of chest completed [facility], LJacoboL.C. 12/29/2023 23:56:29 12/20/[address] of chest completed [facility], DonteLJacoboCJacobo 12/21/2023 12:33:52 12/20/19 24 plain X-ray of chest completed [facility] 12/21/2023 12:34:44 12/09/19 24 plain X-ray of chest completed [facility] 12/12/2023 10:16:37 12/05/19 24 plain X-ray of chest completed [facility] 12/06/2023 13:24:46 11/28/19 24 cardiac catheterization completed [facility], L.L.CJacobo 12/06/2023 13:11:07 11/28/19 24 imaging guided percutaneous transluminal angioplasty of coronary artery with contrast completed [facility], LJacoboL.CJacobo 10/05/2024 10:22:55 11/27/19 24 plain X-ray of chest completed [facility], LJacoboL.CJacobo 11/28/2023 10:19:35 10/24/19 24 imaging guided percutaneous transluminal angioplasty of coronary artery with contrast completed [facility], L.L.CJacobo 10/05/2024 10:22:32 10/16/19 24 imaging guided percutaneous transluminal angioplasty of coronary artery with contrast completed [facility] 10/05/2024 10:22:12 10/07/19 24 plain X-ray of chest completed [facility] 10/08/2023 17:52:40 09/20/19 24 echocardiography completed [facility] 09/26/2023 12:48:56 lobectomy of lung completed [facility], LJacoboL.CJacobo 10/10/2023 12:32:47 amputation completed [facility], DonteLSanju 08/24/2024 12:24:04 cholecystectomy completed [facility] 09/13/2024 14:49:22 Imaging Results None recorded. Procedure Notes None recorded. Medical Equipment None Reported. Allergies Allergen ID Allergen Name Allergen Category Reaction Reaction Severity Criticality Documentation Date Start Date Code Code System Note Provider Name and Address Organization Details Recorded Time 74332 acetamino phen medicatio n abdominal pain moderate low 01/19/20232021 161 RxNorm GI upset /into leran ce Anhlilly coles [facility] 4 07:57:42 41023 acetamino phen medicatio n Not available Not available Not available 02/21/20242023 161 RxNorm ELIZABETHDima HOUSER, [address], [address] , [facility] 5 12:00:53 85362 ranolazin e medicatio n Not available Not available Not available 04/14/2025 81811 RxNorm Hallu cinat ions XIMENA KEATING [facility], [facility] 5 11:33:58 Medications Name Sig Start [...] Not Avai lable tramadol 50 mg tablet TAKE 1 TABLET BY MOUTH TWICE DAILY NEEDED MUST LAST 30 DAYS active Not Available Not Available No [...] Not Available No t Available amoxicill in 875 mg tablet TAKE 1 TABLET BY MOUTH EVERY 12 HOURS FOR 7 DAYS 10/05 completed Not Available Not Available Not Available prednisol one acetate 1 % eye drops,georgette pension INSTILL 1 DROP INTO EACH EYE 4 TIMES DAILY (START DAY OF SURGERY AND CONTINUE FOR 30 DAYS) active Not Available Not Available No t Available nifedipin e ER 60 mg tablet,ex [...] her to decrease to 100mg TID [facility] [place] [facility], [facility]/27 and 02/28 Not Available Not Available [...] completed Not Available Not Available Not Available colchicin e 0.6 mg tablet TAKE 1 TABLET BY MOUTH ONCE DAILY active Not Available Not Available No t Available lisinopri l 40 mg tablet TAKE [...] times per day 10/09 completed VO CH/jl; 25631; Recorded 05/14/20 19 10:02AM by Leydi Jessica [...] Updated DateTime 5 152.4 cm 25.8 kg/m2 35356.1 9 g 95 % 95 % 70 /min 18 /min 150/80 mm[Hg] XIMENA KEATING [facility] 5 10:11:17 Date Recorded Body height Body mass index (BMI) Body weight Oxygen saturation Oxygen saturation in Arterial blood by Pulse oximetry Heart rate Respiratory rate Systolic And Diastolic Provider Name and Address Organization Details Last Updated DateTime 5 152.4 cm 26.6 kg/m2 67318.5 6 g 95 % 95 % 76 /min 20 /min 138/82 mm[Hg] XIMENA RISHABH [facility] 5 12:04:30 Date Recorded Body height Body mass index (BMI) Body weight Oxygen saturation Oxygen saturation in Arterial blood by Pulse oximetry Heart rate Respiratory rate Body temperature Systolic And Diastolic Provider Name and Address Organization Details Last Updated DateTime 5 152.4 cm 26.8 kg/m2 33912.1 5 g 97 % 97 % 72 /min 18 /min 98 [degF] 120/70 mm[Hg] BRANDON RIVERA [facility] 5 12:37:22 Date Recorded Body height Body mass index (BMI) Body weight Oxygen saturation Oxygen saturation in Arterial blood by Pulse oximetry Heart rate Respiratory rate Systolic And Diastolic Provider Name and Address Organization Details Last Updated DateTime 5 152.4 cm 27.7 kg/m2 53401.1 2 g 98 % 98 % 78 /min 18 /min 158/82 mm[Hg] XIMENA RISHABH [facility] 5 11:21:53 Date Recorded Body height Body mass index (BMI) Body weight Oxygen saturation Oxygen saturation in Arterial blood by Pulse oximetry Heart rate Respiratory rate Systolic And Diastolic Systolic And Diastolic Provider Name and Address Organization Details Last Updated DateTime 5 152.4 cm 27.7 kg/m2 56915.1 2 g 99 % 99 % 88 /min 18 /min 166/108 mm[Hg] 158/98 mm[Hg] XIMENA KEATING [facility] 5 11:38:18 Social History Question Answer Notes LastModified by Organizat ion Details LastModified Time Tobacco Smoking Status Former Smoker Quit 07/2023 XIMENA KEATING [facility] 12/24/2023 12:30:16 What Type Of Diet Are You Following? REGULAR [email or web address] Information not available 12/24/2023 Which Illicit Or Recreational Drugs Have You Used? Smokes Meth [email or web address] Information not available 10/10/2023 When Did You Quit Smoking? 1-5yearssin morgan [email or web address] Information not available 12/24/2023 What Was The Date Of Your Most Recent Tobacco Screening? 12/24/2023 Information not available 12/24/2023 What Is Your Current Pack Years? 20-29packye ars Information not available 12/24/2023 What Is Your Relationship Status? Single [email or web address] Information not available 12/24/2023 At What Age [...] or recreational drugs? Yes Quit Meth 07/2023 [email or web address] Information not available 12/24/2023 Do you or have you ever used any other forms of tobacco or nicotine? No Information not available 12/24/2023 What is your level of alcohol consumption? None [email or web address] Information not available 10/10/2023 Are you currently employed? No disabled [email or web address] Information not available 10/10/2023 Are you able to walk independently without assistance or assistive devices? YESASSIST Information not available 10/10/2023 Are you able to care for yourself independently? No Mother is her caregiver. [email or web address] Information not available 10/10/2023 Do you or have you ever used any nicotine-free cigarettes, vape, or chewing tobacco? No Information not available 12/24/2023 Mental Status None recorded. Family History Relationship Description Onset Age of this Age Resolved Age Notes LastModified by Organization Details LastModified Time Mother Myocardial infarction In her 50's [email or web address] Not available 12/29/2023 23:44:26 Mother Rheumatoid arthritis [email or web address] Not available 12/28 23:44:44 Brother Acute lymphoid leukemia [email or web address] Not available 10/18 18:24:23 Medical History Condition Response Anxiety Disorder Y Diabetes Y Coronary Artery Disease Y Heart Problems Y High Cholesterol Y Hospitalizations Y Heart Disease Y Headaches Y Hypertension Y COPD Y Depression Y Lung Disease Y Kidney Disease Y Gynecological HistoryNo gynecological history recorded. Obstetrics History GPAL:G 0 P 0 0 0 0 Immunizations Vaccine Type Date Status Note Provider Nam e and Address Organization Details Recorded Time pneumococcal polysaccharide PPV23 8 completed SUZANNE HEATON [address] [place] [address], [id number], [facility], [place] 12/24/2023 12:51:09 Past Encounters Encounter ID Performer Location Encounter Start Date Encounter Closed Date Diagnosis/Indication Diagnosis SNOMED-CT Code Diagnosis ICD10 Code Diagnosis IMO Codes Diagnosis Note [id number] SUZANNE HEATON [facility] ([facility]) [address] [place] [id number] 10/10/2023 11:29:12 10/10/2023 13:24:32 Uncontrolled type 1 diabetes mellitus 261028719 E10.[address] Ortega. End stage renal failure on dialysis 336228209 Z99.2 MWF dialysis. Multi vess el coronary artery disease 855398745 I25.10 Following with cardiology in [facility] Essential hypertension 94769453 I10 Coronary arteriosclerosis 21703148 I25.10 Follows with cardiology in [facility]. [id number] Matthew Packer DO [facility] ([facility]) [address] [place] [id number] 12/02/2023 12:01:39 12/02/2023 13:56:02 Dental abscess 606514633 K04.7 Will start patient on lower dose amoxicilli n due to her hemodialys is status. Counseled patient that it is imperative that she see and be evaluated by a dentist in the next 2 to 4 weeks. [id number] SUZANNE HEATON [facility] [facility] ([facility]) [address] [place] [address] 38495-336 5 12/24/2023 11:37:48 12/24/2023 14:35:44 Mixed anxiety and depressive disorder 488295401 F41.8 Essential hypertension 16480149 I10 Starting Nifedipine today. Type 1 mainor betes mellitus 86766349 E10.[address] Ortega. Pain in bi lateral legs 8120185150 9993222 M79.604 M79.605 Patient reports she took some of her mom's in the past and it was helpful. End stage renal failure on dialysis 146778842 Z99.2 MWF dialysis. [id number] [facility] [address] [place] [address] 29512-826 5 01/07/2024 15:11:38 01/07/2024 17:49:26 Edema 732372899 R60.9 Non-pittin g lower extremity. Chest pain 12289561 R07. 9 Recurrent. Following with cardiology . Blood pres sure outside reference range 02410197 Z01.31 Will half dose of nifedipine until she is seen with cardiology . [id number] SUZANNE HEATON ABRAZO [facility] ([facility]) [address] [place] [address] 04378-033 5 02/21/2024 11:42:22 02/21/2024 12:51:01 End-stage renal disease 12431694 N18.6 Continue dialysis. Essential hypertension 11759582 I10 Blood pressure good today. Continue current meds. Uncontroll ed type 1 diabetes mellitus 489983390 E10.65 Continue to follow with Dr. Ortega. Mixed anxi ety and depressive disorder 599349678 F41.8 [id number] SUZANNE HEATON ABRAZO [facility] ([facility]) [address] [place] [address] 78025-890 5 04/01/2024 13:47:35 04/01/2024 15:21:12 Essential hypertension 14965867 I10 Monitor at home. Follow-up with cardiology . Uncontroll ed type 1 diabetes mellitus 668814783 E10.65 Continue to follow with Dr. Ortega. [facility] care management 505882426 Z30.9 Has a Nexplanon in her left arm, has not been changed for 12 years per patient Chronic low back pain 27 5684976 M54.50 Would like to see about prescripti on for Tramadol. 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 Congestive heart failure 76283308 I50.9 Follows with Cardiology . Chronic ob structive pulmonary disease 56685427 J44.9 Uses Breo. Secondary hyperaldosteronism 12747162 E26.1 Currently on dialysis. Angina pectoris 39908077 0 I20.9 Follows with cardiology , has nitrostat, recent stent. Amputated toe 064745806 Z89.429 Follows with podiatry. Chronic re current major depressive disorder 0071735 F33.1 Continue Lexapro. [id number] SUZANNE HEATON ABRAZO [facility] ([facility]) [address] [place] [address] 08997-683 5 05/01/2024 11:41:02 05/01/2024 13:20:39 Chronic chest pain 3211732654 26123 R07.9 Encouraged her mother to contact cardiology for follow-up. Essential hypertension 56285184 I10 Monitor at home. Restart Coreg. Abnormal vision 6530938 H54.7 [id number] SUZANNE HEATON ABRAZO [facility] ([facility]) [address] [place] [address] 63712-163 5 07/01/2024 13:56:52 07/01/2024 15:11:16 Essential hypertension 66273578 I10 Blood pressure this am was 125/80. Type 1 mainor betes mellitus 65412822 E10.[address] Ortega. Mixed anxi ety and depressive disorder 665171255 F41.8 Swelling of lower leg 44 8160035 R22.40 Hypoxemic respiratory failure 4251742161 0997929 J96.91 Uses oxygen at home as needed. 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 Depressive disorder 3548 9007 F33.1 Continue escitalopr am. 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 Congestive heart failure 25420589 I50.9 I50.30 Follows with Cardiology . Chronic ki dney disease stage 5 458004783 N18.5 Z99.2 Currently on dialysis. Amputated toe 766805931 Z89.429 Follows with podiatry. Low back pain 858095795 M54.50 Gabapentin . Hypertensi ve heart and renal disease with (congestive) heart failure 529945241 I13.2 Follows with Cardiology . Chronic ob structive pulmonary disease 93212765 J44.9 Uses Breo. Chronic ki dney disease due to type 2 diabetes mellitus 6473926530 08 N18.6 Currently on dialysis. [id number] SUZANNE HEATON ABRAZO [facility] ([facility]) [address] [place] [address] [phone] 5 09/16/2024 09:15:48 09/16/2024 11:21:40 Coronary arteriosclerosis 58724708 I25.10 Recent stent placement. Anemia 211892618 D64.9 Acute supp urative otitis media without spontaneous rupture of ear drum 28952076 H66.001 Pain in bi lateral legs 1138082485 3404111 M79.604 M79.605 She has been taking 100mg three times daily but feels like it needs to be increased. [id number] SUZANNE HEATON ABRAZO [facility] ([facility]) [address] [place] [address] 65553-295 5 10/05/2024 10:02:53 10/05/2024 11:11:59 Coronary atherosclerosis 411057229 I25.10 She has 8 stents now. Mixed anxi ety and depressive disorder 372230952 F41.8 She has been having vivid dreams lately revolving around her brother who recently as well as her daughter who . Hospital i npatient stay within past 30 days 1124163119 106 Z76.89 [id number] SUZANNE HEATON ABRAZO [facility] ([facility]) [address] [place] [address] [phone] 5 11/27/2024 09:57:25 11/27/2024 10:57:38 Essential hypertension 33112128 I10 Blood pressure this am was 179/112 at home, in office is 150/80. Afternoon readings have been good. Type 1 mainor betes mellitus 70842711 E10.[address] Ortega. Pain in bi lateral legs 9620947171 4451263 M79.604 M79.605 Anxiety 75775682 F41.8 [id number] Unable to lay still for MRI. Will send in clonazepam to take prior to procedure. [id number] SUZANNE HEATON ABRAZO [facility] ([facility]) [address] [place] [address] [phone] 5 01/06/2025 11:45:44 01/06/2025 13:58:55 Chronic chest pain 5009653162 83276 R07.9 G89.29 007894 Chronic ki dney disease stage 5 848403235 N18.5 Z99.2 Currently on dialysis. Coronary arteriosclerosis 45826874 I25.10 Recent stent placement. Follow-up with cardiology next week. Will discuss chest pain with them as well. [id number] SUZANNE HEATON ABRAZO [facility] ([facility]) [address] [place] [address] 74831-943 5 03/03/2025 12:06:42 03/03/2025 14:00:46 Neuropathy due to diabetes mellitus 702362967 E11.40 Decrease gabapentin to 100mg three times daily. Chronic renal failure 90 380768 N18.5 65821502 Dialysis. Hyperkalemia 38580639 E8 7.5 9805 Labs checked yesterday at Dialysis. Atypical chest pain 1025 05768 R07.89 733520 Recurrent. Following with cardiology . Recently started Isosorbide . History of abnormal cervical Papanicolaou smear 866111243 Z87.42 7686597 [id number] SUZANNE HEATON ABRAZO [facility] ([facility]) [address] [place] [address] 53932-787 5 03/31/2025 10:56:17 03/31/2025 12:04:26 Chronic chest pain 5163661139 64885 R07.9 G89.29 837667 Spasm 39742667 M62.838 Pain in bi lateral legs 5228733832 5275251 M79.604 M79.605 Site-speci fic infective disorders of skin 595686828 L08.9 41940 right index finger Chronic pain syndrome 37 0998716 G89.4 25676 Gabapentin . [id number] SUZANNE HEATON ABRAZO [facility] ([facility]) [address] [place] [address] 04/14/2025 11:22:24 04/14/2025 14:24:51 Chronic chest pain 1298815329 64012 R07.9 G89.29 097707 Essential hypertension 60735249 I10 36503 Took her blood pressure medication about an hour ago. Pressure at home has been pretty good. Type 1 mainor betes mellitus 56127432 E10.[address] Ortega. Will schedule pump training with patient on a MWF. Will have assistant chief nursing officer set up a time where she can use an exam room here. Health Concerns Section Related Observation LastModified by Organization Detai ls LastModified Time None Recorded Concern Status LastModified by Organization Details LastModified Time None Recorded Advance Directives Directive None Recorded Payers Insurance Date Sequence Insurance Name Policy Number Policy Varela Covered Member ID Varela Member ID Guarantor Name 04/25/2025 [place] - [facility] (MEDICARE) Donita Aguilar [id number] Donita Aguilar 04/25/2025 [place] [facility] (INSTITUTIONAL ) Donita Aguilar [id number] Donita Aguilar 04/25/2025 2 [place] Donita Aguilar [id number] Donita Aguilar 04/25/2025 1 [place] [facility] Donita Aguilar [id number] Donita Aguilar 12/07/2024 1 [facility] (MEDICAID REPLACEMENT - HMO) [facility] Donita Aguilar [id number] Donita Aguilar Notes Date Note Type Note [...] reportsmyocardial infarction,end-stage renal disease, anddiabetes. ELIZABETH HOUSER, [employer]TER [address] [place] [address], [phone], [facility] 11/27/2024 11:31:59 5 text/htm l Angina/Chest PainReported by PatientHPIFor quality, patient reportssqueezingandsoreness. For location, patient reportsmidsternal. For severity, patient reportsmoderate. SUZANNE HEATON [address] [place] [address], [phone], [facility] 01/06/2025 12:54:30 5 text/htm l DyspneaReported [...] back to 100mg. ELIZABETH HOUSER, SUZANNE [address] [place], [address], [facility] 03/03/2025 13:06:19 5 text/htm l Angina/Chest PainReported by PatientHPIFor quality, patient reportsheaviness. For context, patient reportsat rest. For severity, patient reportsmoderate. For onset/timing, patient reportshas noted for yearsandintermittent. For alleviating factors, patient reportsnitroglycerinandrest. SUZANNE HEATON [address] [place], [address], [facility], Billie 03/31/2025 17:08:26 5 text/htm l DyspneaReported by PatientHPIFor quality, patient reportssqueezing,tightness,p ressure,can't catch breath,breathlessness,inabil ity to take a deep breath, andhurts to breathe. For associated symptoms, patient reportsfever,chills,weakness ,hoarseness, anddecrease in exercise capacity. For severity, patient reportsmoderateandlimits activity. For duration, patient reportsfor 2 weeks. For onset/timing, patient reportswith exertion. For pulmonary disease history, patient reportshistory of pulmonary disease. ELIZABETH HOUSER, [facility] [address] [place], [address], [facility], Billie 04/14/2025 14:09:54 OBGyn Episode No OBEpisode recorded.
--- OUTSIDE RECORDS SUMMARY | 2025-04-28 18:01 | XMS_ITS | Encounter Summary ---
Author Organization [facility] Address [address] [place] [address] Care Team Providers Care Return To Factory Clerk Name Role Phone Shravan Jones DO Primary Care Provider [phone] Encounter Details Date Type Department Care Team (Late st Contact Info) Description 01/02/2017 Lab Requisition [facility] [address] [place] [address] Izabela Diamond MD NO ADDRESS ON FILE Social History Tobacco Use Types Packs/Day Years Used Date Smoking Tobacco: Every Day Cigarettes Comments:pt lethargic Comments Unknown Sex and Gender Information Value Date Recorded Sex Assigned at Not on file 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 Gender Identity Not on file Sexual [...] - 145 mmol/L 01/02/2017 6:07 AM CDT [facility] [employer] [facility] POTASSIUM 4.3 3.5 - 5.1 mmol/L 01/02/2017 6:07 AM CDT [facility] CHLORIDE 101 98 - 107 mmol/L 01/02/2017 6:07 AM T [facility] CO2 27 21 - 32 mmol/L 01/02/2017 6:07 AM T [facility] CALCIUM 9.7 8.4 - 10.1 mg/dL 01/02/2017 6:07 AM T [facility] BUN 16 7 - 17 mg/dL 01/02/2017 6:07 AM [facility] CREATININE 0.87 0.55 - 1.02 mg/dL 01/02/2017 6:07 AM T [facility] GLUCOSE 122(H) 74 - 106 mg/dL 01/02/2017 6:07 AM [facility] GFR >60 >=60 mL/min/1.7 3 sq meter 01/02/2017 6:07 AM T [facility] Comment: eGFR has not been [...] 3 sq meter 01/02/2017 6:07 AM CDT [facility] ANION GAP 10 4 - 30 mmol/L 01/02/2017 6:07 AM T [facility] Blood 01/02/2017 3:00 AM CDT 01/02/2017 5:35 AM CDT us Izabela Diamond MD CHEMISTRY ORDERABLES Final Res ult [facility] CLIA# [id number] [address] [place] [address] * (ABNORMAL) CBC WITH DIFFERENTIAL (01/02/2017 3:00 AM CDT) [facility] WBC 10.4 4.5 - 11.0 K/uL 01/02/2017 5:44 AM [facility] RBC 4.30 4.20 - 5.40 M/uL 01/02/2017 5:44 AM [facility] HEMOGLOBIN 10.4(L) 12.0 - 16.0 g/dL 01/02/2017 5:44 AM [facility] HEMATOCRIT 34.5(L) 36.0 - 46.0 % 01/02/2017 5:44 AM [facility] MCV 80.2(L) 84.0 - 103.0 fL 01/02/2017 5:44 AM [facility] MCH 24.2(L) 27.0 - 34.0 pg 01/02/2017 5:44 AM [facility] MCHC 30.1 30.0 - 35.0 g/dL 01/02/2017 5:44 AM [facility] RDW 17.4(H) 11.0 - 14.5 % 01/02/2017 5:44 AM [facility] RDW-STDEV 51.1 37.0 - 54.0 fL 01/02/2017 5:44 AM [facility] PLATELETS 764(H) 140 - 440 K/uL 01/02/2017 5:44 AM [facility] MPV 9.2 8.9 - 12.8 fL 01/02/2017 5:44 AM [facility] NEUTROPHILS 56 42 - 75 % 01/02/2017 5:44 AM [facility] LYMPHOCYTES 27 24 - 44 % 01/02/2017 5:44 AM [facility] MONOCYTES 8 2 - 10 % 01/02/2017 5:44 AM [facility] EOSINOPHILS 7 0 - 7 % 01/02/2017 5:44 AM [facility] BASOPHILS 1 0 - 1 % 01/02/2017 5:44 AM [facility] IMMATURE GRANULOCYTES 1 0 - 2 % 01/02/2017 5:44 AM CDT [facility] NEUTROPHIL ABSOLUTE 5.79 2.00 - 8.00 K/uL 01/02/2017 5:44 AM CDT [facility] LYMPHOCYTE ABSOLUTE 2.78 1.20 - 4.00 K/uL 01/02/2017 5:44 AM CDT [facility] MONOCYTE ABSOLUTE 0.85(H) 0.10 - 0.60 K/uL 01/02/2017 5:44 AM CDT [facility] EOSINOPHIL ABSOLUTE 0.76(H) 0.00 - 0.70 K/uL 01/02/2017 5:44 AM CDT [facility] BASOPHILS ABSOLUTE 0.10 0.00 - 0.20 K/uL 01/02/2017 5:44 AM CDT [facility] IMMATURE GRANULOCYTES ABSOLUTE 0.09 0.00 - 0.10 K/uL 01/02/2017 5:44 AM CDT [facility] Blood 01/02/2017 3:00 AM CDT 01/02/2017 5:35 AM CDT us Izabela Diamond MD HEMATOLOGY ORDERABLES Final Re sult [facility] CLIA# [id number] [address] [place] [address] documented in this encounter Visit Diagnoses Not on filedocumented in this encounter Care Teams Return To Factory Clerk Relationship Specialty Start Date End Date Shravan Jones DO PCP - General Family Practice 12/04/16 documented as of this encounter
[2025-04-28 18:02] VITALS: BP 113/73; PULSE 64; RESP 16; TEMP 36.9; O2SAT 97; BMI 27.3
--- NOTE | 2025-04-28 18:52 | XRR_ITS ---
PROCEDURE INFORMATION: Exam: XR Left Knee Exam date and time: 04/28/2025 7:07 PM Age: 39 years old Clinical indication: Injury or trauma; Fall; Blunt trauma; Knee; Left TECHNIQUE: Imaging protocol: Radiologic exam of the left knee. Views: 3 views. COMPARISON: CR XR knee LT 3V* [id number] 09/20/2024 2:18 AM FINDINGS: Bones/joints: No fracture or dislocation No significant joint space narrowing. Soft tissues: Vascular calcification present soft tissues. XR/XR knee LT 3V* [id number] IMPRESSION: No acute fracture or dislocation.
[2025-04-28 20:14] VITALS: BP 138/80; O2SAT 95
[2025-04-28 20:58] VITALS: BP 164/84; PULSE 77; RESP 16; O2SAT 97
--- NOTE | 2025-04-29 00:26 | W.ED.EXTPRO ---
HPI - Extremity Problem General: Chief complaint: Extremity Injury, Lower Stated complaint: Fall- L knee pain can't put pressure on it Time Seen by Provider: 04/28/25 20:02 Source: patient Mode of arrival: ambulatory Limitations: no limitations History of Present Illness: Patient is a 39-year-old female well-known to the emergency department presenting with left knee pain. She states that she fell on Saturday is having 10 pain. She is requesting pain medications. States that she had been taking tramadol but that she ran out. No swelling or difficulty walking. States that she has been limping however. No other injuries. Vital stable this time, nontoxic-appearing. MD Complaint: joint pain Onset (ago): day(s) Pain Consistency: constant Location: left and knee Severity scale (1-10): 10 Associated symptoms: Deny chest pain, fever(s) or rash Related Data Home Medications ?Medication ?Instructions ?Recorded ?Confirmed gabapentin 100 mg capsule 100 mg PO TID 12/27/23 04/22/25 clopidogrel 75 mg tablet 75 mg PO DAILY 04/28/24 04/22/25 escitalopram oxalate 20 mg tablet 20 mg PO DAILY anxiety 02/14/25 04/22/25 folic acid 1 mg tablet 1 mg PO DAILY 02/14/25 04/22/25 hydralazine 25 mg tablet 12.5 mg PO BID 02/14/25 04/22/25 nitroglycerin 0.4 mg sublingual See Rx Instructions .Route .COMPLEX 02/22/25 04/22/25 tablet cyclobenzaprine 10 mg tablet 10 mg PO TID PRN MUSCLE SPASM 04/22/25 04/22/25 tramadol 50 mg tablet 50 mg PO DAILY 04/22/25 04/22/25 Previous Rx's ?Medication ?Instructions ?Recorded blood-glucose sensor (Dexcom G6 #3 ea 06/12/22 Sensor device) blood-glucose transmitter (Dexcom #1 ea 06/12/22 G6 Transmitter device) blood-glucose,window framer,cont #1 ea 06/12/22 (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) sevelamer carbonate 800 mg tablet 800 mg PO TID #90 tabs 09/16/23 aspirin 81 mg tablet,delayed 81 mg PO QAM 30 days #30 tabs 03/28/24 release atorvastatin 40 mg tablet 40 mg PO BEDTIME 30 days #30 tabs 03/28/24 AFO brace #1 ea 04/20/24 diabetic shoes with 3 inserts #1 ea 04/20/24 amlodipine 5 mg tablet 5 mg PO DAILY #30 tabs 09/30/24 insulin aspart U-100 100 unit/mL See Rx Instructions .Route 12/28/24 (3 mL) subcutaneous pen (Novolog .COMPLEX #15 mL FlexPen U-100 Insulin aspart) colchicine 0.6 mg tablet 0.6 mg PO DAILY #30 tabs 04/23/25 isosorbide mononitrate 60 mg 60 mg PO DAILY #30 tabs 04/23/25 tablet,extended release 24 hr Allergies Allergy/AdvReac Type Severity Reaction Status Date / Time acetaminophen AdvReac Mild ADR-Gastrointestinal Verified 04/07/25 19:26 Upset Review of Systems General: Reports: 10 or more systems reviewed and unremarkable except in HPI and below Const: Denies: fever(s) or chills Card: Denies: chest pain Resp: Denies: dyspnea or productive cough GI: Denies: abdominal pain, nausea, vomiting or diarrhea : Denies: flank pain Musc: Reports: joint pain (left knee); Denies: neck pain, back pain, extremity pain, extremity swelling, joint swelling, joint redness, joint warmth, limited range of motion or muscle weakness Skin/Breast: Denies: rash Neuro: Denies: headache(s), numbness in extremities or weakness in extremities PFSH ED PFSH: Medical History Insulin dependent diabetes mellitus with complications Chest pain Diabetes mellitus HTN (hypertension) HTN (hypertension), benign Hyperkalemia Headache Accelerated hypertension Uncontrolled type 1 diabetes mellitus ESRD (end stage renal disease) Dialysis complication Hypoglycemia Hemodialysis catheter dysfunction Colitis End stage renal disease on dialysis COPD (chronic obstructive pulmonary disease) Transaminitis Intractable nausea and vomiting Hyperlipidemia CHF (congestive heart failure), NYHA class III Pulmonary hypertension CAD (coronary artery disease) Neurogenic bladder COVID-19 Tobacco dependence Drug abuse Anemia Community acquired pneumonia Esophagitis Long-term insulin use History of pancreatitis Celiac disease Recurrent UTI Non-alcoholic fatty liver disease Arnold-Chiari malformation Diabetic gastroparesis -continue Reglan Diabetic neuropathy associated with type 1 diabetes mellitus Headache, common migraine, intractable, with status migrainosus Pleural effusion 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 History of lung surgery -s/p LLL lobectomy secondary to cavitary pneumonia (2017) History of endoscopy History of cholecystectomy Family History Grandfather Diabetes Mother CAD (coronary artery disease) Diabetes Heart disease Hypertension Brother Acute lymphoblastic leukemia (ALL) in child Grandmother Thyroid disease Denies family history of Colon cancer Ovarian cancer Prostate cancer Hyperlipidemia Breast cancer Uterine cancer Stroke Social History Smoking and tobacco/nicotine status: former use of tobacco/nicotine Quit status (tobacco/nicotine): has quit using Former quit date comment: She previously smoked <1/2 PPD, quit July 2023. 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 No bruising or swelling. Full range of motion. Distal neurovascular exam is normal. Neuro: COMMON NORMALS: patient oriented x3, moves all extremities, no focal motor deficits and no sensory deficits noted SENSORIUM/ORIENTATION: Yes alert MENINGEAL SIGNS: Yes no meningeal signs Skin: COMMON NORMALS: no rashes or lesions noted GENERAL SKIN EXAM: no rashes or lesions noted Course Vital Signs: Vital signs: Vital Signs Temperature 98.5 F 04/28/25 18:02 Pulse Rate 77 04/28/25 20:58 Respiratory Rate 16 04/28/25 20:58 Blood Pressure 164/84 04/28/25 20:58 Pulse Oximetry 97 04/28/25 20:58 Oxygen Delivery Me thod Room Air 04/28/25 20:14 MDM - Extremity (Nontraumatic) Medical Decision Making Patient presented with left knee pain after a fall, gone for 2 days. Was ambulatory into the emergency department. She had requesting pain meds on initial presentation. The exam was unremarkable there is no evidence of acute injury. X-ray also negative. Allow discharge home. Suspect contusion. Lab Data Radiology Impressions Knee X-Ray 04/28/25 18:52 IMPRESSION: No acute fracture or dislocation. 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 [place]) Dexcom G6 Transmitter Device See Rx Instructions .Route Qty: 1 0RF Rx Instructions: As directed atorvastatin 40 mg tablet 40 mg PO BEDTIME 30 Days Qty: 30 0RF aspirin 81 mg tablet,delayed release (DR/EC) 81 mg PO QAM 30 Days Qty: 30 0RF amlodipine 5 mg Tablet 5 mg PO DAILY Qty: 30 0RF sevelamer carbonate 800 mg Tablet 800 mg PO TID Qty: 90 0RF gabapentin 100 mg Capsule 100 mg PO TID clopidogrel 75 mg tablet 75 mg PO DAILY insulin aspart U-100 [Novolog FlexPen U-100 Insulin] 100 unit/mL (3 mL) insulin pen See Rx Instructions .ROUTE .COMPLEX Qty: 15 0RF Rx Instructions: Inject 3 times daily, subcut, after meals, based on low-dose sliding scale. hydralazine 25 mg tablet 12.5 mg PO BID folic acid 1 mg tablet 1 mg PO DAILY escitalopram oxalate 20 mg tablet 20 mg PO DAILY nitroglycerin 0.4 mg tablet, sublingual See Rx Instructions .ROUTE .COMPLEX Rx Instructions: DISSOLVE ONE TABLET UNDER THE TONGUE EVERY 5 MINUTES NEEDED FOR CHEST PAIN. DO NOT EXCEED A TOTAL OF 3 DOSES IN 15 MINUTES. tramadol 50 mg tablet 50 mg PO DAILY cyclobenzaprine 10 mg tablet 10 mg PO TID PRN (Reason: MUSCLE SPASM ) colchicine 0.6 mg tablet 0.6 mg PO DAILY Qty: 30 0RF isosorbide mononitrate 60 mg tablet extended release 24 hr 60 mg PO DAILY Qty: 30 0RF Discharge Orders: Discharge ED (Routine); Ordered 04/28/25 Ordered By: Chato Bradshaw Referrals: Elizabeth Dougherty FNP [Primary Care Provider, Unknown] Patient Instructions: Patient Portal & [place] Instructions Activity Restrictions/Additional Instructions: Rest, ice, compression, and elevation. Follow-up with primary care with any worsening. Motrin and Tylenol for pain. Print Language: Comoran Coding Level of Care Code ED Assistant Store Director for Reji Chandler
== END 2025-04-28 20:59 | disposition home or self-care (01) ==
PROVIDERS: Emergency Provider Physician Assistant; PCP Nurse Practitioner Family
DX: S80.02XA Contusion of left knee, initial encounter (principal); Z79.82 Long term (current) use of aspirin; Z79.02 Long term (current) use of antithrombotics/antiplatelets; Z87.891 Personal history of nicotine dependence; J44.9 Chronic obstructive pulmonary disease, unspecified; I25.10 Atherosclerotic heart disease of native coronary artery without angina pectoris; E10.22 Type 1 diabetes mellitus with diabetic chronic kidney disease; I13.2 Hypertensive heart and chronic kidney disease with heart failure and with stage 5 chronic kidney disease, or end stage renal disease; I50.9 Heart failure, unspecified; N18.6 End stage renal disease; Z99.2 Dependence on renal dialysis; W19.XXXA Unspecified fall, initial encounter
CPT/HCPCS: 73562; 99283; J9999

== ENCOUNTER → 2025-05-10 16:31 | Outpatient (BNVA) | payer MEDICARE, MEDICAID, SELFPAY | PROVIDERS: PCP Nurse Practitioner Family; Visit Provider Obstetrics & Gynecology | DX: Z01.419 Encounter for gynecological examination (general) (routine) without abnormal findings (principal) | CPT/HCPCS: 87624 ==

== ENCOUNTER 2025-05-15 21:59 | Emergency (ER) | payer MEDICARE, MEDICAID, SELFPAY ==
[2025-05-15 22:04] VITALS: BP 138/83; PULSE 83; RESP 14; TEMP 36.9; O2SAT 100; BMI 27.5
[2025-05-15 22:07] VITALS: BP 138/83; PULSE 83; RESP 14; TEMP 36.9; O2SAT 100
--- OUTSIDE RECORDS SUMMARY | 2025-05-15 22:09 | XMS_ITS | Continuity of Care Document ---
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 echocardiography completed [facility] 10/01/2024 18:33:00 09/22/19 25 ultrasonography of right breast completed [facility] 09/21/2024 13:39:24 09/22/19 25 mammography completed [facility] 09/21/2024 13:40:36 09/11/[address] of abdomen completed [facility] 09/13/2024 14:56:32 09/10/19 25 angiography of coronary artery completed [facility] 09/13/2024 14:50:21 09/09/19 25 echocardiography completed [facility] 09/13/2024 14:54:55 09/08/19 25 plain X-ray of chest completed [facility], DonteLJacoboCJacobo 09/13/2024 14:57:51 08/24/[address] of chest completed [facility], LJacoboL.CJacobo 08/24/2024 12:28:02 04/28/20 24 plain X-ray of chest completed [facility] 04/30/2024 11:08:42 03/31/20 24 plain X-ray of chest completed [facility] 04/01/2024 14:05:05 03/27/20 24 imaging guided percutaneous transluminal angioplasty of coronary artery with contrast completed [facility], LJacoboLJacoboCJacobo 10/05/2024 10:23:19 02/28/20 24 radiographic procedure on chest and/or abdomen completed [facility] 03/04/2024 15:02:31 02/28/[address] of abdomen completed [facility] 03/04/2024 15:03:26 01/19/20 24 diagnostic radiography of abdomen completed [facility] 01/21/2024 17:26:25 01/06/20 24 plain X-ray of chest completed [facility] 01/07/2024 15:42:42 12/27/19 24 plain X-ray of chest completed [facility] 12/29/2023 23:23:06 12/27/19 24 CT of chest, abdomen and pelvis completed [facility] 12/29/2023 23:32:58 12/24/19 24 plain X-ray of chest completed [facility] 12/29/2023 23:56:29 12/20/[address] of chest completed [facility], LJacoboLJacoboC. 12/21/2023 12:33:52 12/20/19 24 plain X-ray of chest completed [facility], LJacoboL.CJacobo 12/21/2023 12:34:44 12/09/19 24 plain X-ray of chest completed [facility] 12/12/2023 10:16:37 12/05/19 24 plain X-ray of chest completed [facility] 12/06/2023 13:24:46 11/28/19 24 cardiac catheterization completed [facility] 12/06/2023 13:11:07 11/28/19 24 imaging guided percutaneous transluminal angioplasty of coronary artery with contrast completed [facility] 10/05/2024 10:22:55 11/27/19 24 plain X-ray of chest completed [facility] 11/28/2023 10:19:35 10/24/19 24 imaging guided percutaneous transluminal angioplasty of coronary artery with contrast completed [facility] 10/05/2024 10:22:32 10/16/19 24 imaging guided percutaneous transluminal angioplasty of coronary artery with contrast completed RISHABH YOUNGER [facility] 10/05/2024 10:22:12 10/07/19 24 plain X-ray of chest completed XIMENA KEATING [facility], LJacoboL.CJacobo 10/08/2023 17:52:40 09/20/19 24 echocardiography completed XIMENAMAHI KEATING [facility] L[facility]oL.CJacobo 09/26/2023 12:48:56 lobectomy of lung completed XIMENA RISHABH [facility] LJacoboL.CJacobo 10/10/2023 12:32:47 amputation completed XIMENA RISHABH [facility] 08/24/2024 12:24:04 cholecystectomy completed [facility], LJacoboL.CJacobo 09/13/2024 14:49:22 Imaging Results None recorded. Procedure Notes None recorded. Medical Equipment None Reported. Allergies Allergen ID Allergen Name Allergen Category Reaction Reaction Severity Criticality Documentation Date Start Date Code Code System Note Provider Name and Address Organization Details Recorded Time 78533 acetamino phen medicatio n abdominal pain moderate low 01/19/20232021 161 RxNorm [facility] upset [facility] 4 07:57:42 49283 acetamino phen medicatio n Not available Not available Not available 02/21/20242023 161 RxNorm NAJMA HOUSER, [facility] [address] [place], [address] [place] [address], [facility] 5 16:14:16 14263 ranolazin e medicatio n Not available Not available Not available 04/14/2025 64893 RxNorm Todd silveira [facility] 5 11:33:58 Medications Name Sig Start [...] wanted her to decrease to 100mg TID [facility], 02/27 and 02/28 Not [...] Available hydroxyzi ne HCl 25 mg tablet Take 1 tablet twice a day by oral route as needed for 30 days, for anxiety. 2024 active Not Available Not Available Not Avai lable hydralazi ne 50 mg tablet TAKE 1 [...] times per day 10/09 completed VO CH/jl; 43006; Recorded 05/14/20 19 10:02AM by Leydi Jessica [...] mass index (BMI) Body weight Oxygen saturation Heart rate Respiratory rate Systolic And Diastolic Provider Name and Address Organization Details Last Updated DateTime 5 152.4 cm 27.7 kg/m2 41381.1 2 g 98 % 80 /min 18 /min 136/80 mm[Hg] XIMENA KEATING [facility] 5 15:40:44 Social History Question Answer Notes LastModified by ChromaDexizVDP ion Details LastModified Time Tobacco Smoking Status Former Smoker Quit 07/2023 XIMENA KEATING [facility] 12/24/2023 12:30:16 What Type Of Diet Are You Following? REGULAR Information not available 12/24/2023 Which Illicit Or Recreational Drugs Have You Used? Smokes Meth [email or web address] Information not available 10/10/2023 When Did You Quit Smoking? 1-5yearssin celastcigar ette Information not available 12/24/2023 What Was The Date Of Your Most Recent Tobacco Screening? 12/24/2023 Information not available 12/24/2023 What Is Your Current Pack Years? 20-29packye ars Information not available 12/24/2023 What Is Your Relationship Status? Single [email or web address] Information not available 12/24/2023 At What Age [...] or recreational drugs? Yes Quit Meth 07/2023 [email or web address] Information not available 12/24/2023 Do you or have you ever used any other forms of tobacco or nicotine? No Information not available 12/24/2023 What is your level of alcohol consumption? None [email or web address] Information not available 10/10/2023 Are you currently employed? No disabled [email or web address] Information not available 10/10/2023 Are you able to walk independently without assistance or assistive devices? YESASSIST [email or web address] Information not available 10/10/2023 Are you able to care for yourself independently? No Mother is her caregiver. [email or web address] Information not available 10/10/2023 Do you or have you ever used any nicotine-free cigarettes, vape, or chewing tobacco? No Information not available 12/24/2023 Mental Status None recorded. Family History Relationship Description Onset Age of this Age Resolved Age Notes LastModified by Organization Details LastModified Time Mother Myocardial infarction In her 50's [email or web address] Not available 12/29/2023 23:44:26 Mother Rheumatoid arthritis [email or web address] Not available 12/28 23:44:44 Brother Acute lymphoid leukemia [email or web address] Not available 10/18 18:24:23 Medical History Condition Response Diabetes Y Anxiety Disorder Y Heart Problems Y Coronary Artery Disease Y High Cholesterol Y Hospitalizations Y Heart Disease Y Headaches Y Hypertension Y COPD Y Depression Y Lung Disease Y Kidney Disease Y Gynecological HistoryNo gynecological history recorded. Obstetrics History GPAL:G 0 P 0 0 0 0 Immunizations Vaccine Type Date Status Note Provider Nam e and Address Organization Details Recorded Time pneumococcal polysaccharide PPV23 8 completed SUZANNE HEATON [address] [place] [address], [address], [facility] LJolene 12/24/2023 12:51:09 Past Encounters Encounter ID Performer Location Encounter Start Date Encounter Closed Date Diagnosis/Indication Diagnosis SNOMED-CT Code Diagnosis ICD10 Code Diagnosis IMO Codes Diagnosis Note [id number] SUZANNE HEATON [facility] ([facility]) [address] [place] [address] 04/14/2025 11:22:24 04/14/2025 14:24:51 Chronic chest pain 9767656623 03336 R07.9 G89.29 202669 Essential hypertension 65127512 I10 26259 Took her blood pressure medication about an hour ago. Pressure at home has been pretty good. Type 1 mainor betes mellitus 66908120 E10.[address] Ortega. Will schedule pump training with patient on a MWF. Will have assault amphibious vehicle officer set up a time where she can use an exam room here. [id number] SUZANNE HEATON [facility] ([facility]) [address] [place] [address] 05/05/2025 14:52:32 05/05/2025 16:30:15 Pain of knee region 7998087104 M25.569 Chest pain 71007673 R07. 9 985904 Recurrent. Following with cardiology . Recently started colchicine daily and it has been helpful. Chronic ki dney disease stage 5 413601662 N18.5 Z99.2 Currently on dialysis. Generalize d anxiety disorder 37836910 F41.1 99785 Unable to lay still for MRI. Will send in clonazepam to take prior to procedure. Health Concerns Section Related Observation LastModified by Organization Detai ls LastModified Time None Recorded Concern Status LastModified by Organization Details LastModified Time None Recorded Payers Encounter Date Sequence Insurance Name Policy Number Policy Varela Covered Member ID Varela Member ID Guarantor Name 05/05/2025 1 [place] Donita Aguilar [id number] Donita Aguilar 05/05/2025 2 [place] Donita Aguilar [id number] Donita Aguilar Notes Date Note Type Note Provider Name and Address Organization Details Recorded Time 05/05/2025 text/html Generalized Anxi ety DisorderReported by Patient Joint PainReported by PatientHPIFor quality, patient reportsdull. For location, patient reportsleft knee. For severity, patient reportsno change. For duration, patient reportspresent <1 month. For timing, patient reportsconstant. SUZANNE HEATON [address] [place] [address], [phone], [facility] 05/06/2025 10:11:39 OBGyn Episode No OBEpisode recorded.
--- OUTSIDE RECORDS SUMMARY | 2025-05-15 22:09 | XMS_ITS | Encounter Summary ---
Author Organization [facility] Address [address] [place] [address] Care Team Providers Care Embossing Machine Tender Name Role Phone Shravan Jones DO Primary Care Provider [phone] Encounter Details Date Type Department Care Team (Late st Contact Info) Description 01/09/2017 Lab Requisition [facility] Services [facility] [address] [place] [address] Izabela Diamond MD NO ADDRESS ON FILE Social History Tobacco Use Types Packs/Day Years Used Date Smoking Tobacco: Every Day Cigarettes Comments:pt lethargic Comments Unknown Sex and Gender Information Value Date Recorded Sex Assigned at Not on file 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 This will have limited patient impact. us Izabela Diamond MD CHEMISTRY ORDERABLES Final Res ult [facility] CLIA# [id number] [address] [place] [address] * (ABNORMAL) COMPREHENSIVE METABOLIC PANEL (01/09/2017 3:15 AM CDT) SODIUM 139 136 - 145 mmol/L 01/09/2017 5:53 AM CDT [facility] POTASSIUM 4.1 3.5 - 5.1 mmol/L 01/09/2017 5:53 AM T [facility] CHLORIDE 101 98 - 107 mmol/L 01/09/2017 5:53 AM T [facility] CO2 28 21 - 32 mmol/L 01/09/2017 5:53 AM T [facility] CALCIUM 8.8 8.4 - 10.1 mg/dL 01/09/2017 5:53 AM T [facility] BUN 18(H) 7 - 17 mg/dL 01/09/2017 5:53 AM T [facility] CREATININE 0.73 0.55 - 1.02 mg/dL 01/09/2017 5:53 AM T [facility] GLUCOSE 182(H) 74 - 106 mg/dL 01/09/2017 5:53 AM T [facility] TOTAL PROTEIN 8.4(H) 6.4 - 8.2 g/dL 01/09/2017 5:53 AM T [facility] ALBUMIN 2.5(L) 3.4 - 5.0 g/dL 01/09/2017 5:53 AM CDT [facility] BILIRUBIN TOTAL 0.2 0.2 - 1.0 mg/dL 01/09/2017 5:53 AM CDT [facility] ALKALINE PHOSPHATASE 99 25 - 100 U/L 01/09/2017 5:53 AM CDT [facility] AST 30 15 - 37 U/L 01/09/2017 5:53 AM CDT [facility] ALT 27 13 - 61 U/L 01/09/2017 5:53 AM CDT [facility] GFR >60 >=60 mL/min/1.7 3 sq meter 01/09/2017 5:53 AM T [facility] [...] 3 sq meter 01/09/2017 5:53 AM CDT [facility] ANION GAP 10 4 - 30 mmol/L 01/09/2017 5:53 AM T [facility] Blood 01/09/2017 3:15 AM CDT 01/09/2017 5:12 AM CDT us Izabela Diamond MD CHEMISTRY ORDERABLES Final Res ult [facility] CLIA# [id number] [address] [place] [address] * (ABNORMAL) CBC WITH DIFFERENTIAL (01/09/2017 3:15 AM CDT) WBC 8.7 4.5 - 11.0 K/uL 01/09/2017 5:20 AM [facility] RBC 4.63 4.20 - 5.40 M/uL 01/09/2017 5:20 AM [facility] HEMOGLOBIN 11.3(L) 12.0 - 16.0 g/dL 01/09/2017 5:20 AM [facility] HEMATOCRIT 36.8 36.0 - 46.0 % 01/09/2017 5:20 AM [facility] MCV 79.5(L) 84.0 - 103.0 fL 01/09/2017 5:20 AM [facility] MCH 24.4(L) 27.0 - 34.0 pg 01/09/2017 5:20 AM [facility] MCHC 30.7 30.0 - 35.0 g/dL 01/09/2017 5:20 AM [facility] RDW 17.3(H) 11.0 - 14.5 % 01/09/2017 5:20 AM [facility] RDW-STDEV 50.4 37.0 - 54.0 fL 01/09/2017 5:20 AM [facility] PLATELETS 463(H) 140 - 440 K/uL 01/09/2017 5:20 AM [facility] MPV 9.9 8.9 - 12.8 fL 01/09/2017 5:20 AM [facility] NEUTROPHILS 46 42 - 75 % 01/09/2017 5:20 AM [facility] LYMPHOCYTES 33 24 - 44 % 01/09/2017 5:20 AM [facility] MONOCYTES 8 2 - 10 % 01/09/2017 5:20 AM [facility] EOSINOPHILS 11(H) 0 - 7 % 01/09/2017 5:20 AM [facility] BASOPHILS 1 0 - 1 % 01/09/2017 5:20 AM [facility] IMMATURE GRANULOCYTES 0 0 - 2 % 01/09/2017 5:20 AM [facility] NEUTROPHIL ABSOLUTE 4.05 2.00 - 8.00 K/uL 01/09/2017 5:20 AM CDT [facility] LYMPHOCYTE ABSOLUTE 2.86 1.20 - 4.00 K/uL 01/09/2017 5:20 AM CDT [facility] MONOCYTE ABSOLUTE 0.73(H) 0.10 - 0.60 K/uL 01/09/2017 5:20 AM CDT [facility] EOSINOPHIL ABSOLUTE 0.95(H) 0.00 - 0.70 K/uL 01/09/2017 5:20 AM CDT [facility] BASOPHILS ABSOLUTE 0.11 0.00 - 0.20 K/uL 01/09/2017 5:20 AM CDT [facility] IMMATURE GRANULOCYTES ABSOLUTE 0.03 0.00 - 0.10 K/uL 01/09/2017 5:20 AM CDT [facility] Blood 01/09/2017 3:15 AM CDT 01/09/2017 5:12 AM CDT us Izabela Diamond MD HEMATOLOGY ORDERABLES Final Re sult [facility] CLIA# [id number] [address] [place] [address] * (ABNORMAL) HEMOGLOBIN A1C (01/09/2017 2:52 AM CDT) HEMOGLOBIN A1C 8.9(H) 4.0 - 6.0 % 01/09/2017 1:31 PM CDT [facility] EST. AVG GLUCOSE, A1C 209 mg/dL 01/09/2017 1:31 PM CDT [facility] Blood 01/09/2017 2:52 AM CDT 01/09/2017 6:53 AM CDT Narrative [facility] - 01/09/2017 1:31 PM CDT Test performed on [employer] instrumentation using HPLC methodology us Izabela Diamond MD CHEMISTRY ORDERABLES Final Res ult [facility] CLIA# [id number] [address] [place] [address] documented in this encounter Visit Diagnoses Not on filedocumented in this encounter Care Teams Embossing Machine Tender Relationship Specialty Start Date End Date Shravan Jones DO PCP - General Family Practice 12/04/16 documented as of this encounter
--- OUTSIDE RECORDS SUMMARY | 2025-05-15 22:09 | XMS_ITS | Encounter Summary ---
Author Organization [facility] Address [address] [place] [address] Care Team Providers Care Account Specialist Name Role Phone Shravan Jones DO Primary Care Provider Encounter Details Date Type Department Care Team (Late st Contact Info) Description 12/28/2016 Lab Requisition [facility] Laboratory Services [address] [place] [address] David Ortega MD [address] [place] [address] Social History Tobacco Use Types Packs/Day Years Used Date Smoking Tobacco: Every Day Cigarettes Comments:pt lethargic Comments Unknown Sex and Gender Information Value Date Recorded Sex Assigned at Not on file 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 Gender Identity Not on file Sexual Orientation [...] - 4.9 mg/dL 12/28/2016 5:42 AM CDT [facility] Blood Collection / Unknown 12/28/2016 2:39 AM CDT 12/28/2016 5:01 AM CDT David Ortega MD CHEMISTRY ORDERABLES Final Res ult Performing Organization Address [facility] Co de Phone Number [facility] CLIA# [id number] [address] [place] [address] [phone] * MAGNESIUM LEVEL (12/28/2016 2:39 AM CDT) [facility] MAGNESIUM 1.6 1.6 - 2.6 mg/dL 12/28/2016 5:42 AM CDT [facility] Blood Collection / Unknown 12/28/2016 2:39 AM CDT 12/28/2016 5:01 AM CDT Narrative [facility] - 12/28/2016 5:42 AM CDT Due to Plunger Shovel Operator update, MG+ reference range has changed from 1.8 - 2.4 mg/dL to the new reference range of 1.6 - 2.6 mg/dL. This will have limited patient impact. David Ortega MD CHEMISTRY ORDERABLES Final Res ult Performing Organization Address [facility] Co de Phone Number [facility] CLIA# [id number] [address] [place] [id number] * PROTIME-INR (12/28/2016 2:39 AM CDT) [facility] PROTIME 15.0 12.3 - 15.5 Seconds 12/28/2016 5:16 AM CDT [facility] INR 1.1 0.8 - 1.2 12/28/2016 5:16 AM CDT [facility] Blood Collection / Unknown 12/28/2016 2:39 AM CDT 12/28/2016 5:01 AM CDT [place] [facility] - 12/28/2016 5:16 AM CDT Expected Values for INR: DVT/PE Goal INR 2.5; range 2.0 - 3.0 Valve Replacement Tissue Goal INR 2.5; range 2.0 - 3.0 Valve Replacement Mechanical Goal INR 3.0; range 2.5 - 3.5 POST-CO Goal INR 2.5; range 2.0 - 3.0 or Goal INR 3.0; range 2.5 - 3.5 Atrial Fibrillation Goal INR 2.5; range 2.0 - 3.0 Ischemic Stroke Goal INR 2.5; range 2.0 - 3.0 For additional information see Guidelines for Anticoagulation available from the pharmacy Wendy Vargas Pharm D. David Ortega MD HEMATOLOGY ORDERABLES Final Re sult [facility] CLIA# [id number] [address] [place] [id number] * (ABNORMAL) PTT (12/28/2016 2:39 AM CDT) PTT 39.1(H) 24.8 - 38.8 seconds 12/28/2016 5:16 AM CDT [facility] Blood Collection / Unknown 12/28/2016 2:39 AM CDT 12/28/2016 5:01 AM CDT [place] [facility] - 12/28/2016 5:16 AM CDT Therapeutic Range: Hi-level PE/DVT heparin protocol 80.1 - 95.0 sec Lo-level PE/DVT heparin protocol 70.1 - 85.0 sec Cardiac Heparin Protocol 70.1 - 100.0 sec David Ortega MD HEMATOLOGY ORDERABLES Final Re sult [facility] CLIA# [id number] [facility] [place] [address] * (ABNORMAL) CBC WITH DIFFERENTIAL (12/28/2016 2:39 AM CDT) Pathologist [facility] WBC 11.0 4.5 - 11.0 K/uL 12/28/2016 5:09 AM CDT [facility] RBC 3.80(L) 4.20 - 5.40 M/uL 12/28/2016 5:09 AM CDT [facility] HEMOGLOBIN 9.3(L) 12.0 - 16.0 g/dL 12/28[facility]2016 [facility] 30.6(L) 36.0 - 46.0 % 12/28/2016 5:09 AM CDT [facility] MCV 80.5(L) 84.0 - 103.0 fL 12/28/2016 5:09 AM CDT [facility] MCH 24.5(L) 27.0 - 34.0 pg 12/28/2016 5:09 AM CDT [facility] MCHC 30.4 30.0 - 35.0 g/dL 12/28/2016 5:09 AM CDT [facility] RDW 17.3(H) 11.0 - 14.5 % 12/28/2016 5:09 AM T [facility] RDW-STDEV 51.8 37.0 - 54.0 fL 12/28/2016 5:09 AM CDT [facility] PLATELETS 757(H) 140 - 440 K/uL 12/28/2016 5:09 AM CDT [facility] MPV 8.9 8.9 - 12.8 fL 12/28/2016 5:09 AM CDT [facility] NEUTROPHILS 65 42 - 75 % 12/28/2016 5:09 AM CDT [facility] LYMPHOCYTES 19(L) 24 - 44 % 12/28/2016 5:09 AM CDT [facility] MONOCYTES 10 2 - 10 % 12/28/2016 5:09 AM CDT [facility] EOSINOPHILS 5 0 - 7 % 12/28/2016 5:09 AM CDT [facility] BASOPHILS 1 0 - 1 % 12/28/2016 5:09 AM CDT [facility] IMMATURE GRANULOCYTES 1 0 - 2 % 12/28/2016 5:09 AM CDT [facility] NEUTROPHIL ABSOLUTE 7.19 2.00 - 8.00 K/uL 12/28/2016 5:09 AM CDT [facility] LYMPHOCYTE ABSOLUTE 2.04 1.20 - 4.00 K/uL 12/28/2016 5:09 AM CDT [facility] MONOCYTE ABSOLUTE 1.06(H) 0.10 - 0.60 K/uL 12/28/2016 5:09 AM CDT [facility] EOSINOPHIL ABSOLUTE 0.60 0.00 - 0.70 K/uL 12/28/2016 5:09 AM CDT [facility] BASOPHILS ABSOLUTE 0.07 0.00 - 0.20 K/uL 12/28/2016 5:09 AM CDT [facility] IMMATURE GRANULOCYTES ABSOLUTE 0.07 0.00 - 0.10 K/uL 12/28/2016 5:09 AM T [facility] Blood Collection / Unknown 12/28/2016 2:39 AM CDT 12/28/2016 5:01 AM CDT us David Ortega MD HEMATOLOGY ORDERABLES Final Re sult [facility] CLIA# [id number] [address] [place] [id number] * (ABNORMAL) COMPREHENSIVE METABOLIC PANEL (12/28/2016 2:39 AM CDT) SODIUM 143 136 - 145 mmol/L 12/28/2016 5:47 AM CDT [facility] POTASSIUM 3.3(L) 3.5 - 5.1 mmol/L 12/28/2016 5:47 AM [facility] CHLORIDE 103 98 - 107 mmol/L 12/28/2016 5:47 AM [facility] CO2 29 21 - 32 mmol/L 12/28/2016 5:47 AM [facility] CALCIUM 8.9 8.4 - 10.1 mg/dL 12/28/2016 5:47 AM [facility] BUN 13 7 - 17 mg/dL 12/28/2016 5:47 AM [facility] CREATININE 0.70 0.55 - 1.02 mg/dL 12/28/2016 5:47 AM [facility] GLUCOSE 46(LL) 74 - 106 mg/dL 12/28/2016 5:47 AM [facility] TOTAL PROTEIN 8.2 6.4 - 8.2 g/dL 12/28/2016 5:47 AM [facility] ALBUMIN 1.8(L) 3.4 - 5.0 g/dL 12/28/2016 5:47 AM [facility] BILIRUBIN TOTAL 0.2 0.2 - 1.0 mg/dL 12/28/2016 5:47 AM [facility] ALKALINE PHOSPHATASE 93 25 - 100 U/L 12/28/2016 5:47 AM [facility] AST 18 15 - 37 U/L 12/28/2016 5:47 AM [facility] ALT 18 13 - 61 U/L 12/28/2016 5:47 AM [facility] GFR >60 >=60 mL/min/1.7 3 sq meter 12/28/2016 5:47 AM [facility] Comment: eGFR has not been validated [...] 5:47 AM CDT [facility] ANION GAP 11 4 - 30 mmol/L 12/28/2016 5:47 AM CDT [facility] Blood Collection / Unknown 12/28/2016 2:39 AM CDT 12/28/2016 5:01 AM CDT us David Ortega MD CHEMISTRY ORDERABLES Final Res ult [facility] CLIA# [id number] [address] [place] [address] documented in this encounter Visit Diagnoses Not on filedocumented in this encounter Care Teams Account Specialist Relationship Specialty Start Date End Date Shravan Jones DO PCP - General Family Practice 12/04/16 documented as of this encounter
--- OUTSIDE RECORDS SUMMARY | 2025-05-15 22:09 | XMS_ITS | Clinical Summary ---
Author Organization [employer] Address [address] [facility] Attn: [place] [address] Care Team Providers Care Wood Finisher Apprentice Name Role Phone Shravan Jones DO [...] subcutaneous injection. Active naloxone (NARCAN) 4 mg/spray [place], Non-Aerosol EMERGENCY USE ONLY: Administer 1 spray [...] regarding vascular access for dialysis for ESRD ([facility]) Take 1 Tablet (5 mg) [...] troponin 09/22/2023 Coronary artery disease invo lving [place] coronary artery of [place] heart without angina pectoris 09/21/2023 End stage [...] Years Used Date Smoking Tobacco: Former Cigarettes 0 Q uit: 08/05/2023 Tobacco Cessation:Counseling Given: Not [...] and Family Not on file 09/22/2023 Attends Judaism Services Not on file 09/21 Active Member [...] on file Legal Sex Female 3:34 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 [place] [address] Kellee Garcia, TOUCH UP EDGER [address] [place] [address] Health Maintenance Due Date Last Done Comments DTAP/TDAP/TD VACCINES (3 - Tdap) 03/14/2000 03/13/20 00, 09/25/1990 DIABETES ANNUAL FOOT EXAM 2004 DIABETES MICROALBUMIN ANNUAL SCREEN 2004 Traditional Medicare (ACO) A nnual Wellness Visit 2005 HPV/Cotest (21-29) 2007 HPV VACCINES (1 - [...] 10/11/1999, 09/06/1999 Medical Devices Implanted Type Area Bus Driver Supervisor Device Identifier Shelf Expiration Date Model / Serial / Lot Max 1gm Flour [id number] - [id number] Implanted:Qty : 2 on 12/17/2016 by Deandre Alan MD Biological Left: Lung CR BARD[employer] INC 09/19/2019 [id number] / / [id number] Cath Dialysis Glidepath 14.5fr 24cm Std [id number] - [id number] Implanted:Qty : 1 on 03/18/2024 by Asif Mcclellan MD at [facility] Catheter Right: Chest BARD ANGEL VASC 09/21/2025 [id number] / / [id number] Clip Ligating Horizon Red [id number] - Csc - [id number] Implanted:Qty : 1 on 08/10/2024 by Chato Fitch MD at [facility] Clip Left: Arm [employer]LE[employer] INC [id number] 05/16/2029 [id number] / / [id number] Clip Ligating Horizon Med Ti 985407 - Csc - [id number] Implanted:Qty : 1 on 08/10/2024 by Chato Fitch MD at [facility] Clip Left: Arm TELEFLEX- WECK CLOSURE SYS [id number] 03/31/2029 [id number] / / [id number] Monument Installer Ligaclip Sml Mcs20 - [id number] Implanted:Qty : 1 on 08/10/2024 by Chato Fitch MD at [facility] Clip Left: Arm J&J- [employer] [id number] 03/23/2029 MCS20 / / [id number] Closure Perclose Prostyle Sut Mediate 88040-07 - [id number] Implanted:Qty : 1 on 09/24/2023 by Janell Beauchamp MD at [facility] Closure Device N/A: Groin LOVE- VASC DEVICE [id number] 06/23/2025 87042-42 / / [id number] Closure Perclose Prostyle Sut Mediate 08768-80 - [id number] Implanted:Qty : 1 on 10/24/2023 by Janell Beauchamp MD at [facility] Closure Device Right: Groin LOVE- VASC DEVICE [id number] 07/24/2025 33644-94 / / [id number] Oil Slc 8.5ml [id number] - Sgtin:[id number] Implanted:Qty : 1 on 06/23/2024 by Janey Carrera MD at [facility] Eye Right: Eye [facility] 12/21/2026 [id number] / GTIN:[id number] / [id number] Graft Vasc Propaten 4-9jzr24xw [id number] - [id number] Implanted:Qty : 1 on 08/10/2024 by Chato Fitch MD at [facility] Graft Left: Arm [employer] [id number] 05/21/2027 [id number] / [id number] / Agent Hemostat Surgicel 2x3in 1952s - [id number] Implanted:Qty : 1 on 08/10/2024 by Chato Fitch MD at [facility] Hemostatic Left: Arm J&J- ETHICON INC [id number] 12/21/20283S / / [id number] Hemostatic Surgiflo 8ml W/ Thrombin 2994 - [id number] Implanted:Qty : 1 on 08/10/2024 by Chato Fitch MD at [facility] Hemostatic Left: Arm J&J- [employer] INC [id number] 10/21/2025 2994 / / [id number] Agent Hemostat Surgicel 2x3in 1952s - [id number] Implanted:Qty : 1 on 08/10/2024 by Chato Fitch MD at [facility] Hemostatic Left: Arm J&J- [employer] INC [id number] 12/21/20283S / / [id number] Stent Synergy Xd 3.0x48mm Evrlms Elut [id number] - [id number] Implanted:Qty : 1 on 09/24/2023 by Janell Beauchamp MD at [facility] Stent N/A: Coronary [employer] [id number] 03/31/2025 [id number] / / [id number] Stent Synergy Xd 2.41p64rc Evrlms Elut [id number] 0 - [id number] Implanted:Qty : 1 on 10/24/2023 by Janell Beauchamp MD at [facility] Stent Left: Coronary [employer] [id number] 08/19/2024 [id number] 220 / / [id number] Control Implant Funmi Procedures Procedure Name Priority Date/Time Associated Diagnosis Comments LIPID PANEL Routine 09/21/2023 6:47 PM CDT HEMOGLOBIN A1C Routine 09/21/2023 6:46 PM CDT from Last 3 Months or Most Recently Relevant to Health Maintenance Results * (ABNORMAL) LIPID PANEL (09/21/2023 6:47 PM CDT) CHOLESTEROL 96 <200 mg/dL 09/21/2023 10:29 PM CDT [facility] TRIGLYCERIDE 164(H) <150 mg/dL 09/21/2023 10:29 PM CDT [facility] HDL 36(L) 40 - 59 mg/dL 09/21/2023 10:29 PM CDT [facility] LDL CALCULATED 27 <100 mg/dL 09/21/2023 10:29 PM CDT [facility] NON-HDL CHOLESTEROL 60 <130 mg/dL 09/21/2023 10:29 PM CDT [facility] Blood Venipuncture / Unknown 09/21/2023 6:47 PM CDT 09/21/2023 7:10 PM CDT Narrative [facility] - 09/21/2023 10:29 PM CDT TOTAL CHOLESTEROL [...] MD CHEMISTRY ORDERABLES Final R esult [facility] CLIA # [id number] [address] [address] * (ABNORMAL) HEMOGLOBIN A1C (09/21/2023 6:46 PM CDT) HEMOGLOBIN A1C 6.8(H) <=5.6 % 09/23/2023 9:24 AM CDT [facility] EST. AVG GLUCOSE, A1C 148 mg/dL 09/23/2023 9:24 AM CDT [facility] Blood Venipuncture / Unknown 09/21/2023 6:46 PM CDT 09/21/2023 7:08 PM CDT Narrative [facility] - 09/23/2023 9:24 AM CDT HGB A1C INTERPRETATION NORMAL: <5.7% PRE-DIABETES: 5.7 - 6.4% DIABETES: 6.5% OR GREATER Luiz Lacy MD CHEMISTRY ORDERABLES Final R esult [facility] CLIA # [id number] [address] [address] from Last 3 Months or Most Recently Relevant to Health Maintenance Insurance [address]ie [address] [place] [id number] [place] PART [place] B Advance Directives For more information, please contact: [phone] * Full Code (Latest Code Status on File) Date Activated Date Inactivated Comments 10/24/2023 2:34 PM 10/25/2023 11:47 AM * Full Code Date Activated Date Inactivated Comments 10/24/2023 9:13 AM 10/24/2023 2:34 PM * Full Code Date Activated Date Inactivated Comments 09/24/2023 3:14 PM 09/25/2023 9:51 PM * Full Code Date Activated Date Inactivated Comments 09/21/2023 5:50 PM 09/24/2023 3:14 PM Care Teams Wood Finisher Apprentice Relationship Specialty Start Date End Date Shravan Jones DO PCP - General Family Practice 12/04/16
--- OUTSIDE RECORDS SUMMARY | 2025-05-15 22:09 | XMS_ITS | Continuity of Care Document ---
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 11:08:42 03/31/20 24 plain X-ray of chest completed [facility], LJacoboL.C. 04/01/2024 14:05:05 03/27/20 24 imaging guided percutaneous transluminal angioplasty of coronary artery with contrast completed [facility], LJacoboLJacoboCJacobo 10/05/2024 10:23:19 02/28/20 24 radiographic procedure on chest and/or abdomen completed [facility] L.L.CJacobo 03/04/2024 15:02:31 02/28/[address] of abdomen completed [facility], L.L.CJacobo 03/04/2024 15:03:26 01/19/20 24 diagnostic radiography of abdomen completed [facility], LJacoboL.C. 01/21/2024 17:26:25 01/06/20 24 plain X-ray of chest completed [facility], LJacoboL.CJacobo 01/07/2024 15:42:42 12/27/19 24 plain X-ray of chest completed [facility] 12/29/2023 23:23:06 12/27/19 24 CT of chest, abdomen and pelvis completed [facility], L.L.CJacobo 12/29/2023 23:32:58 12/24/19 24 plain X-ray of chest completed [facility], L.L.CJacobo 12/29/2023 23:56:29 12/20/[address] of chest completed [facility], L.L.CJacobo 12/21/2023 12:33:52 12/20/19 24 plain X-ray of chest completed [facility], LJacoboL.CJacobo 12/21/2023 12:34:44 12/09/19 24 plain X-ray of chest completed [facility], L.L.CJacobo 12/12/2023 10:16:37 12/05/19 24 plain X-ray of chest completed [facility] 12/06/2023 13:24:46 11/28/19 24 cardiac catheterization completed [facility] 12/06/2023 13:11:07 11/28/19 24 imaging guided percutaneous transluminal angioplasty of coronary artery with contrast completed [facility], L.L.CJacobo 10/05/2024 10:22:55 11/27/19 24 plain X-ray of chest completed [facility] 11/28/2023 10:19:35 10/24/19 24 imaging guided percutaneous transluminal angioplasty of coronary artery with contrast completed [facility], L.L.CJacobo 10/05/2024 10:22:32 10/16/19 24 imaging guided percutaneous transluminal angioplasty of coronary artery with contrast completed [facility], [place] 10/05/2024 10:22:12 10/07/19 24 plain X-ray of chest completed XIMENA KEATING [facility], [place] 10/08/2023 17:52:40 09/20/19 24 echocardiography completed XIMENAMAHI KEATING [facility], [place] 09/26/2023 12:48:56 lobectomy of lung completed XIMENA RISHABH [facility], [place] 10/10/2023 12:32:47 amputation completed XIMENAMAHI KEATING [facility], [place] 08/24/2024 12:24:04 cholecystectomy completed XIMENAMAHI KEATING [facility], [place] 09/13/2024 14:49:22 Imaging Results None recorded. Procedure Notes None recorded. Medical Equipment None Reported. Allergies Allergen ID Allergen Name Allergen Category Reaction Reaction Severity Criticality Documentation Date Start Date Code Code System Note Provider Name and Address Organization Details Recorded Time 50540 acetamino phen medicatio n abdominal pain moderate low 01/19/20232021 161 RxNorm GI upset /into leran ce Anh coles [facility], DonteLSanju 4 07:57:42 40082 acetamino phen medicatio n Not available Not available Not available 02/21/20242023 161 RxNorm NAJMA HOUSER, [address], [address] , [facility], LJacoboLJacoboCJacobo 5 16:14:16 08047 ranolazin e medicatio n Not available Not available Not available 04/14/2025 31599 RxNorm Hallu cinat ions [facility] 5 11:33:58 Medications Name Sig Start Date [...] wanted her to decrease to 100mg TID [facility] ization, 02/27 and 02/28 Not Available [...] times per day 10/09 completed VO CH/jl; 18372; Recorded 05/14/20 19 10:02AM by Leydi Jessica [...] Last Updated DateTime 152.4 cm 27.7 kg/m2 88128.1 2 g 99 % 88 /min 18 /min 166/108 mm[Hg] 158/98 mm[Hg] XIMENA KEATING [facility] 11:38:18 Social History Question Answer Notes LastModified by Organizat ion Details LastModified Time Tobacco Smoking Status Former Smoker Quit 07/2023 XIMENA KEATING [facility] 12/24/2023 12:30:16 What Type Of Diet Are You Following? REGULAR [email or web address] Information not available 12/24/2023 Which Illicit Or Recreational Drugs Have You Used? Smokes Meth [email or web address] Information not available 10/10/2023 When Did You Quit Smoking? 1-5yearssin celastciwily ette Information not available 12/24/2023 What Was The Date Of Your Most Recent Tobacco Screening? 12/24/2023 Information not available 12/24/2023 What Is Your Current Pack Years? 20-29packye ars Information not available 12/24/2023 What Is Your Relationship Status? Single [email or web address] Information not available 12/24/2023 At What Age [...] or recreational drugs? Yes Quit Meth 07/2023 [email or web address] Information not available 12/24/2023 Do you or have you ever used any other forms of tobacco or nicotine? No Information not available 12/24/2023 What is your level of alcohol consumption? None [email or web address] Information not available 10/10/2023 Are you currently employed? No disabled Information not available 10/10/2023 Are you able to walk independently without assistance or assistive devices? YESASSIST [email or web address] Information not available 10/10/2023 Are you able to care for yourself independently? No Mother is her caregiver. [email or web address] Information not available 10/10/2023 Do you or have you ever used any nicotine-free cigarettes, vape, or chewing tobacco? No Information not available 12/24/2023 Mental Status None recorded. Family History Relationship Description Onset Age of this Age Resolved Age Notes LastModified by Organization Details LastModified Time Mother Myocardial infarction In her 50's [email or web address] Not available 12/29/2023 23:44:26 Mother Rheumatoid arthritis [email or web address] Not available 12/28 23:44:44 Brother Acute lymphoid leukemia [email or web address] Not available 10/18 18:24:23 Medical History Condition Response Anxiety Disorder Y Diabetes Y Heart Problems Y Coronary Artery Disease Y High Cholesterol Y Hospitalizations Y Heart Disease Y Headaches Y Hypertension Y Lung Disease Y COPD Y Depression Y Kidney Disease Y Gynecological HistoryNo gynecological history recorded. Obstetrics History GPAL:G 0 P 0 0 0 0 Immunizations Vaccine Type Date Status Note Provider Nam e and Address Organization Details Recorded Time pneumococcal polysaccharide PPV23 8 completed SUZANNE HEATON [address] [place] [address], [address], [facility], [place] 12/24/2023 12:51:09 Past Encounters Encounter ID Performer Location Encounter Start Date Encounter Closed Date Diagnosis/Indication Diagnosis SNOMED-CT Code Diagnosis ICD10 Code Diagnosis IMO Codes Diagnosis Note [id number] SUZANNE HEATON [facility] ([facility]) [address] [place] [address] 03/31/2025 10:56:17 03/31/2025 12:04:26 Chronic chest pain 0791166956 43735 R07.9 G89.29 005717 Spasm 04504960 M62.838 Pain in bi lateral legs 3595034140 8916733 M79.604 M79.605 Site-speci fic infective disorders of skin 116869849 L08.9 60429 right index finger Chronic pain syndrome 37 7359544 G89.4 95794 Gabapentin . [id number] SUZANNE HEATON [facility] ([facility]) [address] [place] [address] 04/14/2025 11:22:24 04/14/2025 14:24:51 Chronic chest pain 5759312575 42190 R07.9 G89.29 068914 Essential hypertension 52441658 I10 64852 Took her blood pressure medication about an hour ago. Pressure at home has been pretty good. Type 1 mainor betes mellitus 49541303 E10.[address] Ortega. Will schedule pump training with patient on a MWF. Will have chemical instrumentation officer set up a time where she can use an exam room here. Health Concerns Section Related Observation LastModified by Organization Detai ls LastModified Time None Recorded Concern Status LastModified by Organization Details LastModified Time None Recorded Payers Encounter Date Sequence Insurance Name Policy Number Policy Varela Covered Member ID Varela Member ID Guarantor Name 04/14/2025 1 [place] Donita Aguilar [id number] Donita Aguilar 04/14/2025 2 [place] Donita Aguilar [id number] Donita Aguilar Notes Date Note Type Note Provider Name and Address Organization Details Recorded Time 5 text/htm l DyspneaReported by PatientHPIFor quality, patient reportssqueezing,tightness,p ressure,can't catch breath,breathlessness,inabil ity to take a deep breath, andhurts to breathe. For associated symptoms, patient reportsfever,chills,weakness ,hoarseness, anddecrease in exercise capacity. For severity, patient reportsmoderateandlimits activity. For duration, patient reportsfor 2 weeks. For onset/timing, patient reportswith exertion. For pulmonary disease history, patient reportshistory of pulmonary disease. SUZANNE HEATON [address] [place], [address], [facility] 04/14/2025 14:09:54 OBGyn Episode No OBEpisode recorded.
--- OUTSIDE RECORDS SUMMARY | 2025-05-15 22:09 | XMS_ITS | Encounter Summary ---
Author Organization [facility] Address [address] [place] [address] Care Team Providers Care Switchboard Operator Helper Name Role Phone Shravan Jones DO Primary Care Provider [phone] Encounter Details Date Type Department Care Team (Late st Contact Info) Description 01/07/2017 Lab Requisition [facility] [address] [place] [address] David Ortega MD [address] [place] [address] Social History Tobacco Use Types Packs/Day Years Used Date Smoking Tobacco: Every Day Cigarettes Comments:pt lethargic Comments Unknown Sex and Gender Information Value Date Recorded Sex Assigned at Not on file 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
--- OUTSIDE RECORDS SUMMARY | 2025-05-15 22:09 | XMS_ITS | Encounter Summary ---
Author Organization [facility] Address [address] [place] [address] Care Team Providers Care Dental Technician Name Role Phone Shravan Jones DO Primary Care Provider [phone] Encounter Details Date Type Department Care Team (Late st Contact Info) Description 01/07/2017 Lab Requisition [facility] [address] [place] [address] Izabela Diamond MD NO ADDRESS ON FILE Social History Tobacco Use Types Packs/Day Years Used Date Smoking Tobacco: Every Day Cigarettes Comments:pt lethargic Comments Unknown Sex and Gender Information Value Date Recorded Sex Assigned at Not on file 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 Blood 01/07/2017 2:23 AM CDT 01/07/2017 5:01 AM CDT Izabela Diamond MD CHEMISTRY ORDERABLES Final Res ult Performing Organization Address City/[facility]/ZIP Co de Phone Number [facility] CLIA# [id number] [address] [place] [phone] * (ABNORMAL) C-REACTIVE PROTEIN (01/07/2017 2:23 AM CDT) CRP 16.6(H) 0.0 - 2.9 mg/L 01/07/2017 5:27 AM CDT [facility] Blood 01/07/2017 2:23 AM CDT 01/07/2017 5:01 AM CDT Izabela Diamond MD CHEMISTRY ORDERABLES Final Res ult Performing Organization Address [facility] Co de Phone Number [facility] CLIA# [id number] [address] [place] [id number] * (ABNORMAL) BASIC METABOLIC PANEL (01/07/2017 2:23 AM CDT) SODIUM 139 136 - 145 mmol/L 01/07/2017 5:27 AM CDT [facility] POTASSIUM 4.1 3.5 - 5.1 mmol/L 01/07/2017 5:27 AM CDT [facility] CHLORIDE 104 98 - 107 mmol/L 01/07/2017 5:27 AM CDT [facility] CO2 26 21 - 32 mmol/L 01/07/2017 5:27 AM CDT [facility] CALCIUM 9.1 8.4 - 10.1 mg/dL 01/07/2017 5:27 AM CDT [facility] BUN 14 7 - 17 mg/dL 01/07/2017 5:27 AM CDT [facility] CREATININE 0.82 0.55 - 1.02 mg/dL 01/07/2017 5:27 AM T [facility] GLUCOSE 274(H) 74 - 106 mg/dL 01/07/2017 5:27 AM T [facility] GFR >60 >=60 mL/min/1.7 3 sq meter 01/07/2017 5:27 AM T [facility] Comment: eGFR [...] 3 sq meter 01/07/2017 5:27 AM T [facility] ANION GAP 9 4 - 30 mmol/L 01/07/2017 5:27 AM [facility] Blood 01/07/2017 2:23 AM CDT 01/07/2017 5:01 AM CDT us Izabela Diamond MD CHEMISTRY ORDERABLES Final Res ult [facility] CLIA# [id number] [address] [place] [phone] * (ABNORMAL) CBC WITH DIFFERENTIAL (01/07/2017 2:23 AM CDT) WBC 9.3 4.5 - 11.0 K/uL 01/07/2017 5:27 AM CDT [facility] RBC 4.19(L) 4.20 - 5.40 M/uL 01/07/2017 5:27 AM CDT [facility] HEMOGLOBIN 10.3(L) 12.0 - 16.0 g/dL 01/07/2017 5:27 AM [facility] HEMATOCRIT 33.2(L) 36.0 - 46.0 % 01/07/2017 5:27 AM [facility] MCV 79.2(L) 84.0 - 103.0 fL 01/07/2017 5:27 AM [facility] MCH 24.6(L) 27.0 - 34.0 pg 01/07/2017 5:27 AM [facility] MCHC 31.0 30.0 - 35.0 g/dL 01/07/2017 5:27 AM [facility] RDW 17.2(H) 11.0 - 14.5 % 01/07/2017 5:27 AM [facility] RDW-STDEV 49.4 37.0 - 54.0 fL 01/07/2017 5:27 AM [facility] PLATELETS 545(H) 140 - 440 K/uL 01/07/2017 5:27 AM [facility] MPV 10.2 8.9 - 12.8 fL 01/07/2017 5:27 AM [facility] NEUTROPHILS 53 42 - 75 % 01/07/2017 5:27 AM [facility] LYMPHOCYTES 26 24 - 44 % 01/07/2017 5:27 AM [facility] MONOCYTES 9 2 - 10 % 01/07/2017 5:27 AM [facility] EOSINOPHILS 11(H) 0 - 7 % 01/07/2017 5:27 AM [facility] BASOPHILS 1 0 - 1 % 01/07/2017 5:27 AM [facility] IMMATURE GRANULOCYTES 0 0 - 2 % 01/07/2017 5:27 AM [facility] NEUTROPHIL ABSOLUTE 4.88 2.00 - 8.00 K/uL 01/07/2017 5:27 AM [facility] LYMPHOCYTE ABSOLUTE 2.45 1.20 - 4.00 K/uL 01/07/2017 5:27 AM [facility] MONOCYTE ABSOLUTE 0.79(H) 0.10 - 0.60 K/uL 01/07/2017 5:27 AM CDT [facility] EOSINOPHIL ABSOLUTE 1.01(H) 0.00 - 0.70 K/uL 01/07/2017 5:27 AM CDT [facility] BASOPHILS ABSOLUTE 0.11 0.00 - 0.20 K/uL 01/07/2017 5:27 AM CDT [facility] IMMATURE GRANULOCYTES ABSOLUTE 0.04 0.00 - 0.10 K/uL 01/07/2017 5:27 AM CDT [facility] Blood 01/07/2017 2:23 AM CDT 01/07/2017 5:01 AM CDT us Izabela Diamond MD HEMATOLOGY ORDERABLES Final Re sult [facility] CLIA# [id number] [address] [place] [phone] documented in this encounter Visit Diagnoses Not on filedocumented in this encounter Care Teams Dental Technician Relationship Specialty Start Date End Date Shravan Jones DO PCP - General Family Practice 12/04/16 documented as of this encounter
--- OUTSIDE RECORDS SUMMARY | 2025-05-15 22:09 | XMS_ITS | Clinical Summary ---
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 Gender Identity Not on file [...] 10/11/1999, 09/06/1999 Medical Devices Implanted Type Area Credit Risk Analyst Device Identifier Shelf Expiration Date Model / Serial / Lot Max tracy Flour [id number] - [id number] Implanted:Qty: 2 on 12/17/2016 by Deandre Alan MD at [facility] Biological Left: Lung [employer] 09/19/2019 [id number] / / [id number] Control Implant Funmi Procedures Procedure Name Priority Date/Time Associated Diagnosis Comments HEMOGLOBIN A1C Routine 01/09/2017 2:52 AM CDT from Last 3 Months or Most Recently Relevant to Health Maintenance Results * (ABNORMAL) HEMOGLOBIN A1C (01/09/2017 2:52 AM CDT) HEMOGLOBIN A1C 8.9(H) 4.0 - 6.0 % 01/09/2017 1:31 PM CDT [facility] EST. AVG GLUCOSE, A1C 209 mg/dL 01/09/2017 1:31 PM CDT [facility] Blood 01/09/2017 2:52 AM CDT 01/09/2017 6:53 AM CDT Narrative [facility] - 01/09/2017 1:31 PM CDT Test performed on [employer] instrumentation using HPLC methodology us Izabela Diamond MD CHEMISTRY ORDERABLES Final Res ult [facility] CLIA# [id number] [address] [place] [address] from Last 3 Months or Most Recently Relevant to Health Maintenance Insurance [place], [place] [id number] [place] [address] MEDICAID Advance Directives For more information, please contact: [phone] * Full Code (Latest Code Status on File) Date Activated Date Inactivated Comments 12/17/2016 1:05 PM 12/27/2016 11:32 PM Care Teams Recruitment Specialist Relationship Specialty Start Date End Date Shravan Jones DO PCP - General Family Practice 12/04/16
--- OUTSIDE RECORDS SUMMARY | 2025-05-15 22:09 | XMS_ITS | Data Portability ---
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 663756653 Active 2023 XIMENA coles [facility] 4 12:27:02 Anemia 373557986 Active 2023 ELIZABETH HOUSER, [address], [address], [facility] 5 11:47:10 Female pelvic inflamma tory disease 088475758 Active 2023 XIMENA coles [facility] 4 12:28:16 Mixed anxiety and depressi ve disorder 458290982 Active 2023 XIMENA coles, [facility] 4 12:28:28 Pancreat itis 00361917 Active 2023 XIMENA coles, [facility] 4 12:28:40 Diabetic ketoacid osis 853385858 Active 2023 recurren t XIMENA RISHABH sharyn, [facility], [facility] 4 12:28:57 Migraine 12278398 Active 2023 ELIZABETH HOUSER, [address], [address], [facility] 5 16:14:26 Cardiome enoch 9255578 Active 2023 XIMENA coles [facility] 4 12:30:17 Edema 962383991 Active 2023 XIMENA coles [facility] 4 23:45:39 Edema due to fluid overload 478125478 Active 2023 XIMENA coles [facility] 4 23:45:54 End stage renal failure on dialysis 102528960 Active 2023 ELIZABETH HOUSER, [facility] [address] [place], [address], [facility] 5 16:14:26 Esophagi tis 49049114 Active 2024 XIMENA coles [facility] 5 18:23:17 Chronic pain 91897841 Active 2024 Davian Ren MD [address] [place], [address], [facility], LJacoboLJacoboCJacobo 09:12:38 Generali zed anxiety disorder 06830070 Active 2024 ELIZABETH HOUSER, [facility] [address] [place], [address], [facility], Billie 16:12:14 Notes:Some problems listed i n Documents: #[id number], #[id number], #[id number], #[id number] could not be added to this patient's chart. Please review these documents and add these problems to the patient's chart manually as needed. Problem Notes None recorded. Procedures Surgical History Date Name Laterality Status Provider Name and Address Organization Details Recorded Time 04/28/20 25 plain X-ray of left knee region completed [facility], Billie 05/05/2025 15:02:31 04/22/20 25 plain X-ray of chest completed [facility], KaelynCJacobo 04/26/2025 19:04:48 04/07/20 25 plain X-ray of chest completed [facility], Billie 04/08/2025 12:01:33 03/28/20 25 plain X-ray of chest completed [facility], Billie 03/31/2025 11:10:09 03/21/20 25 plain X-ray of chest completed [facility], LJacoboLJacoboCJacobo 03/31/2025 11:07:12 03/04/20 25 plain X-ray of chest completed [facility], KaelynCJacobo 03/31/2025 11:09:47 12/27/[address] of chest completed [facility], KaelynCJacobo 12/27/2024 14:20:38 12/26/19 25 plain X-ray of chest completed [facility] 12/27/2024 14:13:55 11/11/19 25 plain X-ray of cervical spine completed [facility] 11/11/2024 12:44:02 10/01/19 25 angiography completed [facility] 10/01/2024 18:38:18 09/27/19 25 plain X-ray of chest completed [facility] 09/27/2024 18:18:09 09/27/19 25 echocardiography completed [facility], [facility] 10/01/2024 18:33:00 09/22/19 25 ultrasonography of right breast completed [facility], [facility] 09/21/2024 13:39:24 09/22/19 25 mammography completed [facility] 09/21/2024 13:40:36 09/11/19 25 [address] of abdomen completed [facility] 09/13/2024 14:56:32 09/10/19 25 angiography of coronary artery completed [facility] 09/13/2024 14:50:21 09/09/19 25 echocardiography completed [facility] 09/13/2024 14:54:55 09/08/19 25 plain X-ray of chest completed [facility], [facility] 09/13/2024 14:57:51 08/24/19 25 CT of chest completed [facility], [facility] 08/24/2024 12:28:02 04/28/20 24 plain X-ray of chest completed [facility], [facility] 04/30/2024 11:08:42 03/31/20 24 plain X-ray of chest completed [facility], [facility] 04/01/2024 14:05:05 03/27/20 24 imaging guided percutaneous transluminal angioplasty of coronary artery with contrast completed [facility], LJacoboLJacoboCJacobo 10/05/2024 10:23:19 02/28/20 24 radiographic procedure on chest and/or abdomen completed [facility], LJacoboL.C. 03/04/2024 15:02:31 02/28/[address] 24 [address] of abdomen completed [facility], LJacoboL.CJacobo 03/04/2024 15:03:26 01/19/20 24 diagnostic radiography of abdomen completed [facility], LJacoboL.C. 01/21/2024 17:26:25 01/06/20 24 plain X-ray of chest completed [facility], LJacoboLJacoboCJacobo 01/07/2024 15:42:42 12/27/19 24 plain X-ray of chest completed [facility], [facility] 12/29/2023 23:23:06 12/27/19 24 CT of chest, abdomen and pelvis completed [facility], [facility] 12/29/2023 23:32:58 12/24/19 24 plain X-ray of chest completed [facility], LJacoboL.C. 12/29/2023 23:56:29 12/20/19 24 CT of chest completed [facility], [facility] 12/21/2023 12:33:52 12/20/19 24 plain X-ray of chest completed [facility], LJacoboL.C. 12/21/2023 12:34:44 12/09/19 24 plain X-ray of chest completed [facility], LJacoboLJacoboCJacobo 12/12/2023 10:16:37 12/05/19 24 plain X-ray of chest completed [facility] 12/06/2023 13:24:46 11/28/19 24 cardiac catheterization completed [facility], [facility] 12/06/2023 13:11:07 11/28/19 24 imaging guided percutaneous transluminal angioplasty of coronary artery with contrast completed [facility], L.L.CJacobo 10/05/2024 10:22:55 11/27/19 24 plain X-ray of chest completed [facility], L.L.CJacobo 11/28/2023 10:19:35 10/24/19 24 imaging guided percutaneous transluminal angioplasty of coronary artery with contrast completed [facility], L.L.CJacobo 10/05/2024 10:22:32 10/16/19 24 imaging guided percutaneous transluminal angioplasty of coronary artery with contrast completed [facility], L.L.CJacobo 10/05/2024 10:22:12 10/07/19 24 plain X-ray of chest completed [facility], L.L.CJacobo 10/08/2023 17:52:40 09/20/19 24 echocardiography completed [facility] 09/26/2023 12:48:56 lobectomy of lung completed [facility] 10/10/2023 12:32:47 amputation completed [facility] 08/24/2024 12:24:04 cholecystectomy completed [facility], L.L.CJacobo 09/13/2024 14:49:22 Imaging Results None recorded. Procedure Notes None recorded. Medical Equipment None Reported. Allergies Allergen ID Allergen Name Allergen Category Reaction Reaction Severity Criticality Documentation Date Start Date Code Code System Note Provider Name and Address Organization Details Recorded Time 56077 acetamino phen medicatio n abdominal pain moderate low 01/19/20232021 161 RxNorm GI upset /into leran ce Anh coles, [facility] 4 07:57:42 52474 acetamino phen medicatio n Not available Not available Not available 02/21/20242023 161 RxNorm ELIZABETH HOUSER, [facility] [address] [place], [address] , [facility] 5 16:14:16 27642 ranolazin e medicatio n Not available Not available Not available 04/14/2025 84139 RxNorm Hallu cinat ions XIMENA RISHABH coles, [facility], [facility] 5 11:33:58 Medications Name Sig Start [...] wanted her to decrease to 100mg TID johanna [facility], 02/27 and 02/28 Not Available Not Available [...] times per day 10/09 completed VO CH/jl; 53731; Recorded 05/14/20 19 10:02AM by Leydi Jessica [...] TAKE 1 TABLET BY MOUTH TWICE DAILY 04/014 completed Not Available Not Available Not Available [...] Updated DateTime 5 152.4 cm 26.6 kg/m2 97475.5 6 g 95 % 76 /min 20 /min 138/82 mm[Hg] XIMENA KEATING [facility] 5 12:04:30 Date Recorded Body height Body mass index (BMI) Body weight Oxygen saturation Heart rate Respiratory rate Body temperature Systolic And Diastolic Provider Name and Address Organization Details Last Updated DateTime 5 152.4 cm 26.8 kg/m2 85358.1 5 g 97 % 72 /min 18 /min 98 [degF] 120/70 mm[Hg] BRANDON RIVERA [facility] 5 12:37:22 Date Recorded Body height Body mass index (BMI) Body weight Oxygen saturation Heart rate Respiratory rate Systolic And Diastolic Provider Name and Address Organization Details Last Updated DateTime 5 152.4 cm 27.7 kg/m2 33436.1 2 g 98 % 78 /min 18 /min 158/82 mm[Hg] XIMENA KEATING [facility], L.LJacoboCJacobo 5 11:21:53 Date Recorded Body height Body mass index (BMI) Body weight Oxygen saturation Heart rate Respiratory rate Systolic And Diastolic Systolic And Diastolic Provider Name and Address Organization Details Last Updated DateTime 5 152.4 cm 27.7 kg/m2 38618.1 2 g 99 % 88 /min 18 /min 166/108 mm[Hg] 158/98 mm[Hg] XIMENA KEATING [facility], LJacoboL.CJacobo 5 11:38:18 Date Recorded Body height Body mass index (BMI) Body weight Oxygen saturation Heart rate Respiratory rate Systolic And Diastolic Provider Name and Address Organization Details Last Updated DateTime 5 152.4 cm 27.7 kg/m2 34473.1 2 g 98 % 80 /min 18 /min 136/80 mm[Hg] XIMENA EKATING [facility] 5 15:40:44 Social History Question Answer Notes LastModified by Organizat ion Details LastModified Time Tobacco Smoking Status Former Smoker Quit 07/2023 XIMENA KEATING [facility], L.L.CJacobo 12/24/2023 12:30:16 What Type Of Diet Are You Following? REGULAR [email or web address] Information not available 12/24/2023 Which Illicit Or Recreational Drugs Have You Used? Smokes Meth [email or web address] Information not available 10/10/2023 When Did You Quit Smoking? 1-5yearssin celastcigar ette Information not available 12/24/2023 What Was The Date Of Your Most Recent Tobacco Screening? 12/24/2023 Information not available 12/24/2023 What Is Your Current Pack Years? 20-29packye ars Information not available 12/24/2023 What Is Your Relationship Status? Single [email or web address] Information not available 12/24/2023 At What Age [...] or recreational drugs? Yes Quit Meth 07/2023 [email or web address] Information not available 12/24/2023 Do you or have you ever used any other forms of tobacco or nicotine? No Information not available 12/24/2023 What is your level of alcohol consumption? None [email or web address] Information not available 10/10/2023 Are you currently employed? No disabled [email or web address] Information not available 10/10/2023 Are you able to walk independently without assistance or assistive devices? YESASSIST [email or web address] Information not available 10/10/2023 Are you able to care for yourself independently? No Mother is her caregiver. [email or web address] Information not available 10/10/2023 Do you or have you ever used any nicotine-free cigarettes, vape, or chewing tobacco? No Information not available 12/24/2023 Mental Status None recorded. Family History Relationship Description Onset Age of this Age Resolved Age Notes LastModified by Organization Details LastModified Time Mother Myocardial infarction In her 50's [email or web address] Not available 12/29/2023 23:44:26 Mother Rheumatoid arthritis [email or web address] Not available 12/28 23:44:44 Brother Acute lymphoid leukemia [email or web address] Not available 10/18 18:24:23 Medical History Condition [...] pneumococcal polysaccharide PPV23 8 completed SUZANNE HEATON [address] [place] [address], [address], [facility], Billie 12/24/2023 12:51:09 Past Encounters Encounter ID Performer Location Encounter Start Date Encounter Closed Date Diagnosis/Indication Diagnosis SNOMED-CT Code Diagnosis ICD10 Code Diagnosis IMO Codes Diagnosis Note [id number] SUZANNE HEATON [facility] ([facility]) [address] [place] [address] 10/10/2023 11:29:12 10/10/2023 13:24:32 Uncontrolled type 1 diabetes mellitus 472436177 E10.[address] Ortega. End stage renal failure on dialysis 377975273 Z99.2 MWF dialysis. Multi vess el coronary artery disease 564575901 I25.10 Following with cardiology in [facility] Essential hypertension 86828465 I10 Coronary arteriosclerosis 52770929 I25.10 Follows with cardiology in [facility]. [id number] Matthew Packer DO [facility] ([facility]) [address] [place] [address] 12/02/2023 12:01:39 12/02/2023 13:56:02 Dental abscess 983263103 K04.7 Will start patient on lower dose amoxicilli n due to her hemodialys is status. Counseled patient that it is imperative that she see and be evaluated by a dentist in the next 2 to 4 weeks. [id number] SUZANNE HEATON [facility] ([facility]) [address] [place] [address] 12/24/2023 11:37:48 12/24/2023 14:35:44 Mixed anxiety and depressive disorder 433379446 F41.8 Essential hypertension 05838214 I10 Starting Nifedipine today. Type 1 mainor betes mellitus 45340836 E10.[address] Ortega. Pain in bi lateral legs 5774036994 2696045 M79.604 M79.605 Patient reports she took some of her mom's in the past and it was helpful. End stage renal failure on dialysis 386226443 Z99.2 MWF dialysis. [id number] ELIZABETH HOUSER [facility] ([facility]) [address] [place] [address] 01/07/2024 15:11:38 01/07/2024 17:49:26 Edema 934340552 R60.9 Non-pittin g lower extremity. Chest pain [id number] R07. 9 Recurrent. Following with cardiology . Blood pres sure outside reference range 43192958 Z01.31 Will half dose of nifedipine until she is seen with cardiology . [id number] ELIZABETH HOUSER [facility] ([facility]) [address] [place] [address] 02/21/2024 11:42:22 02/21/2024 12:51:01 End-stage renal disease 45916723 N18.6 Continue dialysis. Essential hypertension 85504045 I10 Blood pressure good today. Continue current meds. Uncontroll ed type 1 diabetes mellitus 540109959 E10.65 Continue to follow with Dr. Ortega. Mixed anxi ety and depressive disorder 190268307 F41.8 [id number] [facility] ([facility]) [address] [place] [address] 04/01/2024 13:47:35 04/01/2024 15:21:12 Essential hypertension 43035295 I10 Monitor at home. Follow-up with cardiology . Uncontroll ed type 1 diabetes mellitus 004534694 E10.65 Continue to follow with Dr. [facility]tega. [facility] 451076026 Z30.9 Has a Nexplanon in her left arm, has not been changed for 12 years per patient Chronic low back pain 27 2757664 M54.50 Would like to see about prescripti on for Tramadol. 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 Congestive heart failure 45581826 I50.9 Follows with Cardiology . Chronic ob structive pulmonary disease 25791169 J44.9 Uses Breo. Secondary hyperaldosteronism 37853409 E26.1 Currently on dialysis. Angina pectoris 13625958 0 I20.9 Follows with cardiology , has nitrostat, recent stent. Amputated toe 656413185 Z89.429 Follows with podiatry. Chronic re current major depressive disorder 5304648 F33.1 Continue Lexapro. [id number] SUZANNE HEATON [facility] ([facility]) [address] [place] [address] 05/01/2024 11:41:02 05/01/2024 13:20:39 Chronic chest pain 1151824573 11380 R07.9 Encouraged her mother to contact cardiology for follow-up. Essential hypertension 41219324 I10 Monitor at home. Restart Coreg. Abnormal vision 7600362 H54.7 [id number] SUZANNE HEATON [facility] ([facility]) [address] [place] [address] 07/01/2024 13:56:52 07/01/2024 15:11:16 Essential hypertension 47043291 I10 Blood pressure this am was 125/80. Type 1 mainor betes mellitus 62849155 E10.[address] Ortega. Mixed anxi ety and depressive disorder 560973062 F41.8 Swelling of lower leg 44 3128733 R22.40 Hypoxemic respiratory failure 8831537079 6084947 J96.91 Uses oxygen at home as needed. 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 Depressive disorder 3548 9007 F33.1 Continue escitalopr am. 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 Congestive heart failure 76153279 I50.9 I50.30 Follows with Cardiology . Chronic ki dney disease stage 5 504995294 N18.5 Z99.2 Currently on dialysis. Amputated toe 841170638 Z89.429 Follows with podiatry. Low back pain 787951398 M54.50 Gabapentin . Hypertensi ve heart and renal disease with (congestive) heart failure 028827884 I13.2 Follows with Cardiology . Chronic ob structive pulmonary disease 61059276 J44.9 Uses Breo. Chronic ki dney disease due to type 2 diabetes mellitus 9639721295 08 N18.6 Currently on dialysis. [id number] SUZANNE HEATON [facility] ([facility]) [address] [place] [address] 09/16/2024 09:15:48 09/16/2024 11:21:40 Coronary arteriosclerosis 06477632 I25.10 Recent stent placement. Anemia 339774074 D64.9 Acute supp urative otitis media without spontaneous rupture of ear drum 24243070 H66.001 Pain in bi lateral legs 8264636388 4694276 M79.604 M79.605 She has been taking 100mg three times daily but feels like it needs to be increased. [id number] [facility] ([facility]) [address] [place] [address] 10/05/2024 10:02:53 10/05/2024 11:11:59 Coronary atherosclerosis 521274564 I25.10 She has 8 stents now. Mixed anxi ety and depressive disorder 877242344 F41.8 She has been having vivid dreams lately revolving around her brother who recently as well as her daughter who . Hospital i npatient stay within past 30 days 7656420977 106 Z76.89 [id number] [facility] ([facility]) [address] [place] [address] 11/27/2024 09:57:25 11/27/2024 10:57:38 Essential hypertension 97772243 I10 Blood pressure this am was 179/112 at home, in office is 150/80. Afternoon readings have been good. Type 1 mainor betes mellitus 77329952 E10.[address] Ortega. Pain in bi lateral legs 9127929856 7015604 M79.604 M79.605 Anxiety 68061902 F41.8 [id number] Unable to lay still for MRI. Will send in clonazepam to take prior to procedure. [id number] [facility] ([facility]) [address] [place] [address] 01/06/2025 11:45:44 01/06/2025 13:58:55 Chronic chest pain 5683615666 51298 R07.9 G89.29 609903 Chronic ki dney disease stage 5 069627825 N18.5 Z99.2 Currently on dialysis. Coronary arteriosclerosis 39521828 I25.10 Recent stent placement. Follow-up with cardiology next week. Will discuss chest pain with them as well. [id number] SUZANNE HEATON [facility] ([facility]) [address] [place] [address] 03/03/2025 12:06:42 03/03/2025 14:00:46 Neuropathy due to diabetes mellitus 127393414 E11.40 Decrease gabapentin to 100mg three times daily. Chronic renal failure 90 781417 N18.5 35663494 Dialysis. Hyperkalemia 21949809 E8 7.5 9805 Labs checked yesterday at Dialysis. Atypical chest pain 1025 22685 R07.89 346668 Recurrent. Following with cardiology . Recently started Isosorbide . History of abnormal cervical Papanicolaou smear 854635308 Z87.42 9972242 [id number] SUZANNE HEATON [facility] ([facility]) [address] [place] [address] 03/31/2025 10:56:17 03/31/2025 12:04:26 Chronic chest pain 6090555335 86421 R07.9 G89.29 607530 Spasm 64407674 M62.838 Pain in bi lateral legs 8278317773 8244445 M79.604 M79.605 Site-speci fic infective disorders of skin 295578846 L08.9 43271 right index finger Chronic pain syndrome 37 0911141 G89.4 81933 Gabapentin . [id number] ELIZABETH HOUSER PROFESSIONAL ENGINEER [facility] ([facility]) [address] [place] [address] 04/14/2025 11:22:24 04/14/2025 14:24:51 Chronic chest pain 2257407311 81722 R07.9 G89.29 136165 Essential hypertension 02973878 I10 75775 Took her blood pressure medication about an hour ago. Pressure at home has been pretty good. Type 1 mainor betes mellitus 58888199 E10.[address] Ortega. Will schedule pump training with patient on a F. Will have airfield engineer officer set up a time where she can use an exam room here. [id number] SUZANNE HEATON [facility] ([facility]) [address] [place] [address] 05/05/2025 14:52:32 05/05/2025 16:30:15 Pain of knee region 4506187637 M25.569 Chest pain 51052477 R07. 9 [id number] Recurrent. Following with cardiology . Recently started colchicine daily and it has been helpful. Chronic ki dney disease stage 5 977326586 N18.5 Z99.2 Currently on dialysis. Generalize d anxiety disorder 39800276 F41.1 98210 Unable to lay still for MRI. Will [...] [place] - [facility] (MEDICARE) Donita Aguilar [id number] Donita Aguilar 04/25/2025 [place] [facility] Donita Aguilar [id number] Donita Aguilar 04/25/2025 2 [place] Donita Aguilar [id number] Donita Aguilar 04/25/2025 1 [place] [facility] Donita Aguilar [id number] Donita Aguilar 12/07/2024 1 [facility] (MEDICAID REPLACEMENT - HMO) [facility] Donita Aguilar [id number] Donita Aguilar Notes Date Note Type Note Provider Name and Address Organization Details Recorded Time 5 text/htm l Angina/Chest PainReported by PatientHPIFor quality, patient reportssqueezingandsoreness. For location, patient reportsmidsternal. For severity, patient reportsmoderate. SUZANNE HEATON [address] [place] [address], [address], [facility], Billie 01/06/2025 12:54:30 5 text/htm l DyspneaReported by [...] Dr wants gabapentin lowered back to 100mg. SUZANNE HEATON [address] [place] [address], [address], [facility] 03/03/2025 13:06:19 5 text/htm l Angina/Chest PainReported by PatientIFor quality, patient reportsheaviness. For context, patient reportsat rest. For severity, patient reportsmoderate. For onset/timing, patient reportshas noted for yearsandintermittent. For alleviating factors, patient reportsnitroglycerinandrest. SUZANNE HEATON [address] [place] [address], [phone], [facility] 03/31/2025 17:08:26 5 text/htm l DyspneaReported by PatientIFor quality, patient reportssqueezing,tightness,p ressure,can't catch breath,breathlessness,inabil ity to take a deep breath, andhurts to breathe. For associated symptoms, patient reportsfever,chills,weakness ,hoarseness, anddecrease in exercise capacity. For severity, patient reportsmoderateandlimits activity. For duration, patient reportsfor 2 weeks. For onset/timing, patient reportswith exertion. For pulmonary disease history, patient reportshistory of pulmonary disease. SUZANNE HEATON [address] [place], [address], [facility], Jasmeet. 04/14/2025 14:09:54 5 text/htm l Generalized Anxiety DisorderReported by Patient Joint PainReported by PatientHPIFor quality, patient reportsdull. For location, patient reportsleft knee. For severity, patient reportsno change. For duration, patient reportspresent <1 month. For timing, patient reportsconstant. ELIZABETH HOUSER [facility] [place], [address], [facility], Billie 05/06/2025 10:11:39 OBGyn Episode No OBEpisode recorded.
--- OUTSIDE RECORDS SUMMARY | 2025-05-15 22:09 | XMS_ITS | Encounter Summary ---
Author Organization [facility] Address [address] [place] [address] Care Team Providers Care Ssrs Report Developer Name Role Phone Shravan Jones DO Primary Care Provider [phone]- [phone] Encounter Details Date Type Department Care Team (Late st Contact Info) Description 12/12/2016 Nurse Only [facility] 4D Surgery Heart Lung [address] 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
--- OUTSIDE RECORDS SUMMARY | 2025-05-15 22:09 | XMS_ITS | Encounter Summary ---
Author Organization [facility] Address [address] [place] [address] Care Team Providers Care Senior Financial Consultant Name Role Phone Shravan Jones DO Primary Care Provider +1- [phone] Encounter Details Date Type Department Care Team (Late st Contact Info) Description 01/07/2017 Lab Requisition 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 Gender Identity Not on file Sexual Orientation [...] Detected Not Detected 01/07/2017 8:08 PM CDT [facility] Stool STOOL SPECIMEN / Unknown 01/07/2017 1:54 PM CDT 01/07/2017 6:53 PM CDT Narrative [facility] - 01/07/2017 8:08 PM CDT This [...] MICROBIOLOGY - GENERAL ORDERAB LES Final Result [facility] CLIA# [id number] [address] [place] [address] documented in this encounter Visit Diagnoses Not on filedocumented in this encounter Care Teams Senior Financial Consultant Relationship Specialty Start Date End Date Shravan Jones DO PCP - General Family Practice 12/04/16 documented as of this encounter
--- OUTSIDE RECORDS SUMMARY | 2025-05-15 22:09 | XMS_ITS | Encounter Summary ---
Author Organization [facility] Address 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 Name Role Phone Shravan Jones DO Primary Care Provider [phone]- [phone] Reason for Visit * Reason Onset Date Comments Appointment Notification 11/05/2023 Encounter Details Date Type Department Care Team (Late st Contact Info) Description 11/05/2023 Telephone [facility] [address] [place] [address] Janell Beauchamp MD [address] [place] [address] Appointment Notification Social History Tobacco Use Types Packs/Day Years Used Date Smoking Tobacco: Every Day Comments:Quit smoking: pt le thargic Social Connections Answer Date Recorded In a typical week, how many times do you talk on the telephone with family, friends, or neighbors? 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 For 11/25 as she has other appts in town that day. Please call pt to reschedule. 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 [facility] [address] [place] [address] Kellee Garcia, HAYDEE [address] [facility] [place] [facility] [address] [place] [address] documented as of this encounter Visit Diagnoses Not on filedocumented in this encounter Additional Health Concerns Infection Onset Date Last Indicated Resolved Time R/O C. 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
--- OUTSIDE RECORDS SUMMARY | 2025-05-15 22:09 | XMS_ITS | Continuity of Care Document ---
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 03/31/2025 11:09:47 12/27/[address] of chest completed [facility] 12/27/2024 14:20:38 12/26/19 25 plain X-ray of chest completed [facility] 12/27/2024 14:13:55 11/11/19 25 plain X-ray of cervical spine completed [facility] 11/11/2024 12:44:02 10/01/19 25 angiography completed [facility] 10/01/2024 18:38:18 09/27/19 25 plain X-ray of chest completed [facility] 09/27/2024 18:18:09 09/27/19 25 echocardiography completed [facility] 10/01/2024 18:33:00 09/22/19 25 ultrasonography of right breast completed [facility] 09/21/2024 13:39:24 09/22/19 25 mammography completed [facility], LJacoboL.CJacobo 09/21/2024 13:40:36 09/11/[address] of abdomen completed [facility], Donte[facility].C[facility] 09/13/2024 14:56:32 09/10/19 25 angiography of coronary artery completed [facility], L[facility]oboL.CJacobo 09/13/2024 14:50:21 09/09/19 25 echocardiography completed [facility], DonteLJacoboCJacobo 09/13/2024 14:54:55 09/08/19 25 plain X-ray of chest completed [facility], DonteLJacoboCJacobo 09/13/2024 14:57:51 08/24/[address] of chest completed [facility] 08/24/2024 12:28:02 04/28/20 24 plain X-ray of chest completed [facility] 04/30/2024 11:08:42 03/31/20 24 plain X-ray of chest completed [facility] 04/01/2024 14:05:05 03/27/20 24 imaging guided percutaneous transluminal angioplasty of coronary artery with contrast completed [facility] 10/05/2024 10:23:19 02/28/20 24 radiographic procedure on chest and/or abdomen completed [facility], LJacbooL.CJacobo 03/04/2024 15:02:31 02/28/[address] of abdomen completed [facility], LJacoboL.CJacobo 03/04/2024 15:03:26 01/19/20 24 diagnostic radiography of abdomen completed [facility] 01/21/2024 17:26:25 01/06/20 24 plain X-ray of chest completed [facility] 01/07/2024 15:42:42 12/27/19 24 plain X-ray of chest completed [facility] 12/29/2023 23:23:06 12/27/19 24 CT of chest, abdomen and pelvis completed [facility], LJacoboL.CJacobo 12/29/2023 23:32:58 12/24/19 24 plain X-ray of chest completed [facility], LJacoboLJacoboCJacobo 12/29/2023 23:56:29 12/20/[address] of chest completed [facility], DonteLJacoboCJacobo 12/21/2023 12:33:52 12/20/19 24 plain X-ray of chest completed [facility] 12/21/2023 12:34:44 12/09/19 24 plain X-ray of chest completed [facility] 12/12/2023 10:16:37 12/05/19 24 plain X-ray of chest completed [facility], L.LJacoboCJacobo 12/06/2023 13:24:46 11/28/19 24 cardiac catheterization completed [facility] 12/06/2023 13:11:07 11/28/19 24 imaging guided percutaneous transluminal angioplasty of coronary artery with contrast completed [facility], L.L[facility]oboC. 10/05/2024 10:22:55 11/27/19 24 plain X-ray of chest completed [facility], L.LJacoboCJacobo 11/28/2023 10:19:35 10/24/19 24 imaging guided percutaneous transluminal angioplasty of coronary artery with contrast completed [facility] 10/05/2024 10:22:32 10/16/19 24 imaging guided percutaneous transluminal angioplasty of coronary artery with contrast completed [facility], LJacoboL.CJacobo 10/05/2024 10:22:12 10/07/19 24 plain X-ray of chest completed [facility], KaelynCJacobo 10/08/2023 17:52:40 09/20/19 24 echocardiography completed [facility], DonteLJacoboCJacobo 09/26/2023 12:48:56 lobectomy of lung completed XIMENAMAHI KEATING [facility] [place] 10/10/2023 12:32:47 amputation completed XIMENAMAHI KEATING [facility], DonteLJacoboCJacobo 08/24/2024 12:24:04 cholecystectomy completed [facility], DonteLJacoboCJacobo 09/13/2024 14:49:22 Imaging Results None recorded. Procedure Notes None recorded. Medical Equipment None Reported. Allergies Allergen ID Allergen Name Allergen Category Reaction Reaction Severity Criticality Documentation Date Start Date Code Code System Note Provider Name and Address Organization Details Recorded Time 16997 acetamino phen medicatio n abdominal pain moderate low 01/19/20232021 161 RxNorm GI upset /into leran ce Anh coles [facility] LJacoboL[facility]obo 4 07:57:42 90023 acetamino phen medicatio n Not available Not available Not available 02/21/20242023 161 RxNorm ELIZABETH HOUSER, [facility] [address] [place], [address] , [facility], DonteLJacoboCJacobo 16:14:16 45150 ranolazin e medicatio n Not available Not available Not available 04/14/2025 75911 RxNorm Hallu cinat ions [facility] 11:33:58 Medications Name Sig Start Date Stop [...] wanted her to [facility]28 Not Available Not Available [...] 100 unit/mL (3 mL) subcutane ous pen 07/07/ 2025 active Not Available Not Available Not Avai [...] times per day 10/09 completed VO CH/jl; 97662; Recorded 05/14/20 10:02AM by Leydi Jessica RN (Authori nirmal [...] Organization Details Last Updated DateTime 152.4 cm 26.8 kg/m2 72384.1 5 g 97 % 72 /min 18 /min 98 [degF] 120/70 mm[Hg] BRANDON RIVERA [facility] 12:37:22 Social History Question Answer Notes LastModified by Organizat ion Details LastModified Time Tobacco Smoking Status Former Smoker Quit 07/2023 XIMENA coles [facility] 12/24/2023 12:30:16 What Type Of Diet Are You Following? REGULAR Information not available 12/24/2023 Which Illicit Or Recreational Drugs Have You Used? Smokes Meth [email or web address] Information not available 10/10/2023 When Did You Quit Smoking? 1-5yearssin celastcigar ette Information not available 12/24/2023 What Was The Date Of Your Most Recent Tobacco Screening? 12/24/2023 Information not available 12/24/2023 What Is Your Current Pack Years? 20-29packye ars Information not available 12/24/2023 What Is Your Relationship Status? Single [email or web address] Information not available 12/24/2023 At What Age [...] or recreational drugs? Yes Quit Meth 07/2023 [email or web address] Information not available 12/24/2023 Do you or have you ever used any other forms of tobacco or nicotine? No Information not available 12/24/2023 What is your level of alcohol consumption? None Information not available 10/10/2023 Are you currently employed? No disabled [email or web address] Information not available 10/10/2023 Are you able to walk independently without assistance or assistive devices? YESASSIST [email or web address] Information not available 10/10/2023 Are you able to care for yourself independently? No Mother is her caregiver. [email or web address] Information not available 10/10/2023 Do you or have you ever used any nicotine-free cigarettes, vape, or chewing tobacco? No Information not available 12/24/2023 Mental Status None recorded. Family History Relationship Description Onset Age of this Age Resolved Age Notes LastModified by Organization Details LastModified Time Mother Myocardial infarction In her 50's [email or web address] Not available 12/29/2023 23:44:26 Mother Rheumatoid arthritis [email or web address] Not available 12/28 23:44:44 Brother Acute lymphoid leukemia [email or web address] Not available 10/18 18:24:23 Medical History Condition Response Diabetes Y Anxiety Disorder Y Heart Problems Y Coronary Artery Disease Y Hospitalizations Y COPD Y Depression Y Lung Disease Y High Cholesterol Y Heart Disease Y Headaches Y Hypertension Y Kidney Disease Y Gynecological HistoryNo gynecological history recorded. Obstetrics History GPAL:G 0 P 0 0 0 0 Immunizations Vaccine Type Date Status Note Provider Nam e and Address Organization Details Recorded Time pneumococcal polysaccharide PPV23 8 completed SUZANNE HEATON [address] [place], [address], [facility] 12/24/2023 12:51:09 Past Encounters Encounter ID Performer Location Encounter Start Date Encounter Closed Date Diagnosis/Indication Diagnosis SNOMED-CT Code Diagnosis ICD10 Code Diagnosis IMO Codes Diagnosis Note [id number] SUZANNE HEATON [facility] ([facility]) [address] [place] [address] 03/03/2025 12:06:42 03/03/2025 14:00:46 Neuropathy due to diabetes mellitus 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 Chronic renal failure 90 400038 N18.5 00218618 Dialysis. Hyperkalemia 47385000 E8 7.5 9805 Labs checked yesterday at Dialysis. Atypical chest pain 1025 58072 R07.89 [id number] Recurrent. Following with cardiology . Recently started Isosorbide . History of abnormal cervical Papanicolaou smear 076439679 Z87.42 [id number] Health Concerns Section Related Observation LastModified by Organization Detai ls LastModified Time None Recorded Concern Status LastModified by Organization Details LastModified Time None Recorded Payers Encounter Date Sequence Insurance Name Policy Number Policy Varela Covered Member ID Varela Member ID Guarantor Name 03/03/2025 1 [place] Donita Aguilar [id number] Donita Aguilar 03/03/2025 2 [place] Donita Aguilar [id number] Donita Aguilar Notes Date Note Type Note [...] issues. wants gabapentin lowered back to 100mg. SUZANNE HEATON [address] [place], [address], [facility] [place] 03/03/2025 13:06:19 OBGyn Episode No OBEpisode recorded.
--- OUTSIDE RECORDS SUMMARY | 2025-05-15 22:09 | XMS_ITS | Encounter Summary ---
Author Organization [facility] Address [address] [place] [address] Care Team Providers Care Transit Clerk Name Role Phone Shravan Jones DO Primary Care Provider [phone] Encounter Details Date Type Department Care Team (Late st Contact Info) Description 01/02/[address] [facility] [address] [place] [address] Izabela Diamond MD NO ADDRESS ON FILE Social History Tobacco Use Types Packs/Day Years Used Date Smoking Tobacco: Every Day Cigarettes Comments:pt lethargic Comments Unknown Sex and Gender Information Value Date Recorded Sex Assigned at Not on file Legal Sex Female 4:38 AM [employer] Gender Identity Not on file Sexual Orientation [...] - 145 mmol/L 01/02/2017 6:07 AM CDT [facility] [employer] [facility] POTASSIUM 4.3 3.5 - 5.1 mmol/L 01/02/2017 6:07 AM CDT [facility] CHLORIDE 101 98 - 107 mmol/L 01/02/2017 6:07 AM T [facility] CO2 27 21 - 32 mmol/L 01/02/2017 6:07 AM T [facility] CALCIUM 9.7 8.4 - 10.1 mg/dL 01/02/2017 6:07 AM T [facility] BUN 16 7 - 17 mg/dL 01/02/2017 6:07 AM [facility] CREATININE 0.87 0.55 - 1.02 mg/dL 01/02/2017 6:07 AM T [facility] GLUCOSE 122(H) 74 - 106 mg/dL 01/02/2017 6:07 AM [facility] GFR >60 >=60 mL/min/1.7 3 sq meter 01/02/2017 6:07 AM T [facility] Comment: eGFR [...] 3 sq meter 01/02/2017 6:07 AM CDT [facility] ANION GAP 10 4 - 30 mmol/L 01/02/2017 6:07 AM T [facility] Blood 01/02/2017 3:00 AM CDT 01/02/2017 5:35 AM CDT us Izabela Diamond MD CHEMISTRY ORDERABLES Final Res ult [facility] CLIA# [id number] [address] [place] [address] * (ABNORMAL) CBC WITH DIFFERENTIAL (01/02/2017 3:00 AM CDT) [facility] WBC 10.4 4.5 - 11.0 K/uL 01/02/2017 5:44 AM [facility] RBC 4.30 4.20 - 5.40 M/uL 01/02/2017 5:44 AM [facility] HEMOGLOBIN 10.4(L) 12.0 - 16.0 g/dL 01/02/2017 5:44 AM [facility] HEMATOCRIT 34.5(L) 36.0 - 46.0 % 01/02/2017 5:44 AM [facility] MCV 80.2(L) 84.0 - 103.0 fL 01/02/2017 5:44 AM [facility] MCH 24.2(L) 27.0 - 34.0 pg 01/02/2017 5:44 AM [facility] MCHC 30.1 30.0 - 35.0 g/dL 01/02/2017 5:44 AM [facility] RDW 17.4(H) 11.0 - 14.5 % 01/02/2017 5:44 AM [facility] RDW-STDEV 51.1 37.0 - 54.0 fL 01/02/2017 5:44 AM [facility] PLATELETS 764(H) 140 - 440 K/uL 01/02/2017 5:44 AM [facility] MPV 9.2 8.9 - 12.8 fL 01/02/2017 5:44 AM [facility] NEUTROPHILS 56 42 - 75 % 01/02/2017 5:44 AM [facility] LYMPHOCYTES 27 24 - 44 % 01/02/2017 5:44 AM [facility] MONOCYTES 8 2 - 10 % 01/02/2017 5:44 AM [facility] EOSINOPHILS 7 0 - 7 % 01/02/2017 5:44 AM [facility] BASOPHILS 1 0 - 1 % 01/02/2017 5:44 AM [facility] IMMATURE GRANULOCYTES 1 0 - 2 % 01/02/2017 5:44 AM CDT [facility] NEUTROPHIL ABSOLUTE 5.79 2.00 - 8.00 K/uL 01/02/2017 5:44 AM CDT [facility] LYMPHOCYTE ABSOLUTE 2.78 1.20 - 4.00 K/uL 01/02/2017 5:44 AM CDT [facility] MONOCYTE ABSOLUTE 0.85(H) 0.10 - 0.60 K/uL 01/02/2017 5:44 AM CDT [facility] EOSINOPHIL ABSOLUTE 0.76(H) 0.00 - 0.70 K/uL 01/02/2017 5:44 AM CDT [facility] BASOPHILS ABSOLUTE 0.10 0.00 - 0.20 K/uL 01/02/2017 5:44 AM CDT [facility] IMMATURE GRANULOCYTES ABSOLUTE 0.09 0.00 - 0.10 K/uL 01/02/2017 5:44 AM CDT [facility] Blood 01/02/2017 3:00 AM CDT 01/02/2017 5:35 AM CDT us Izabela Diamond MD HEMATOLOGY ORDERABLES Final Re sult [facility] CLIA# [id number] [address] [place] [address] documented in this encounter Visit Diagnoses Not on filedocumented in this encounter Care Teams Transit Clerk Relationship Specialty Start Date End Date Shravan Jones DO PCP - General Family Practice 12/04/16 documented as of this encounter
--- OUTSIDE RECORDS SUMMARY | 2025-05-15 22:09 | XMS_ITS | Encounter Summary ---
Author Organization [facility] Address [address] [place] [address] Care Team Providers Care Medical Bill Processor Name Role Phone Shravan Jones DO Primary Care Provider [phone] Encounter Details Date Type Department Care Team (Latest Contact Info) Description 05/14/[address] 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
--- OUTSIDE RECORDS SUMMARY | 2025-05-15 22:09 | XMS_ITS | Encounter Summary ---
Author Organization [facility] Address [address] [place] [address] Care Team Providers Care Punchboard Assembler Name Role Phone Shravan Jones DO Primary Care Provider [phone]- [phone] Encounter Details Date Type Department Care Team (Late st Contact Info) Description 12/31/2016 Lab Requisition [facility] Laboratory Services [address] [place] [address] David Ortega MD [address] [place] [address] Social History Tobacco Use Types Packs/Day Years Used Date Smoking Tobacco: Every Day Cigarettes Comments:pt lethargic Comments Unknown Sex and Gender Information Value Date Recorded Sex Assigned at Not on file 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 This will have limited patient impact. us David Ortega MD CHEMISTRY ORDERABLES Final Res ult [facility] CLIA# [id number] [address] [place] [id number] * (ABNORMAL) COMPREHENSIVE METABOLIC PANEL (12/31/2016 2:26 AM CDT) SODIUM 138 136 - 145 mmol/L 12/31/2016 5:52 AM CDT [facility] POTASSIUM 4.7 3.5 - 5.1 mmol/L 12/31/2016 5:52 AM [facility] CHLORIDE 102 98 - 107 mmol/L 12/31/2016 5:52 AM T [facility] CO2 27 21 - 32 mmol/L 12/31/2016 5:52 AM T [facility] CALCIUM 9.1 8.4 - 10.1 mg/dL 12/31/2016 5:52 AM T [facility] BUN 17 7 - 17 mg/dL 12/31/2016 5:52 AM T [facility] CREATININE 0.87 0.55 - 1.02 mg/dL 12/31/2016 5:52 AM T [facility] GLUCOSE 214(H) 74 - 106 mg/dL 12/31/2016 5:52 AM T [facility] TOTAL PROTEIN 8.2 6.4 - 8.2 g/dL 12/31/2016 5:52 AM T [facility] ALBUMIN 1.9(L) 3.4 - 5.0 g/dL 12/31/2016 5:52 AM CDT [facility] BILIRUBIN TOTAL 0.2 0.2 - 1.0 mg/dL 12/31/2016 5:52 AM CDT [facility] ALKALINE PHOSPHATASE 95 25 - 100 U/L 12/31/2016 5:52 AM CDT [facility] AST 9(L) 15 - 37 U/L 12/31/2016 5:52 AM CDT [facility] ALT 14 13 - 61 U/L 12/31/2016 5:52 AM CDT [facility] GFR >60 >=60 mL/min/1.7 3 sq meter 12/31/2016 5:52 AM T [facility] Comment: eGFR has not been [...] meter 12/31/2016 5:52 AM CDT [facility] ANION GAP 9 4 - 30 mmol/L 12/31/2016 5:52 AM T [facility] Blood 12/31/2016 2:26 AM CDT 12/31/2016 5:17 AM CDT us David Ortega MD CHEMISTRY ORDERABLES Final Res ult [facility] CLIA# [id number] [address] [place] [address] * (ABNORMAL) CBC WITH DIFFERENTIAL (12/31/2016 2:26 AM CDT) WBC 13.7(H) 4.5 - 11.0 K/uL 12/31/2016 6:32 AM [facility] RBC 3.66(L) 4.20 - 5.40 M/uL 12/31/2016 6:32 AM [facility] HEMOGLOBIN 9.3(L) 12.0 - 16.0 g/dL 12/31/2016 6:32 AM [facility] [employer] [facility] HEMATOCRIT 29.6(L) 36.0 - 46.0 % 12/31/2016 6:32 AM [facility] [employer] [facility] MCV 80.9(L) 84.0 - 103.0 fL 12/31/2016 6:32 AM [facility] [employer] [facility] MCH 25.4(L) 27.0 - 34.0 pg 12/31/2016 6:32 AM [facility] MCHC 31.4 30.0 - 35.0 g/dL 12/31/2016 6:32 AM [facility] [employer] [facility] RDW 17.4(H) 11.0 - 14.5 % 12/31/2016 6:32 AM [facility] [employer] [facility] RDW-STDEV 52.1 37.0 - 54.0 fL 12/31/2016 6:32 AM [facility] [employer] [facility] PLATELETS 767(H) 140 - 440 K/uL 12/31/2016 6:32 AM [facility] [employer] [facility] MPV 9.0 8.9 - 12.8 fL 12/31/2016 6:32 AM [facility] [employer] [facility] NEUTROPHILS 68 42 - 75 % 12/31/2016 6:32 AM [facility] [employer] [facility] LYMPHOCYTES 17(L) 24 - 44 % 12/31/2016 6:32 AM [facility] [employer] [facility] MONOCYTES 8 2 - 10 % 12/31/2016 6:32 AM [facility] [employer] [facility] EOSINOPHILS 6 0 - 7 % 12/31/2016 6:32 AM [facility] [employer] [facility] BASOPHILS 0 0 - 1 % 12/31/2016 6:32 AM [facility] [employer] [facility] IMMATURE GRANULOCYTES 1 0 - 2 % 12/31/2016 6:32 AM CDT [facility] NEUTROPHIL ABSOLUTE 9.26(H) 2.00 - 8.00 K/uL 12/31/2016 6:32 AM CDT [facility] LYMPHOCYTE ABSOLUTE 2.28 1.20 - 4.00 K/uL 12/31/2016 6:32 AM CDT [facility] MONOCYTE ABSOLUTE 1.07(H) 0.10 - 0.60 K/uL 12/31/2016 6:32 AM CDT [facility] EOSINOPHIL ABSOLUTE 0.82(H) 0.00 - 0.70 K/uL 12/31/2016 6:32 AM CDT [facility] BASOPHILS ABSOLUTE 0.06 0.00 - 0.20 K/uL 12/31/2016 6:32 AM CDT [facility] IMMATURE GRANULOCYTES ABSOLUTE 0.17(H) 0.00 - 0.10 K/uL 12/31/2016 6:32 AM CDT [facility] Blood 12/31/2016 2:26 AM CDT 12/31/2016 5:17 AM CDT Narrative [facility] - 12/31/2016 6:32 AM CDT Smear reviewed us David Ortega MD HEMATOLOGY ORDERABLES Final Re sult [facility] CLIA# [id number] [address] [place] [id number] documented in this encounter Visit Diagnoses Not on filedocumented in this encounter Care Teams Punchboard Assembler Relationship Specialty Start Date End Date Shravan Jones DO PCP - General Family Practice 12/04/16 documented as of this encounter
--- OUTSIDE RECORDS SUMMARY | 2025-05-15 22:10 | XMS_ITS | Continuity of Care Document ---
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 Name Laterality Status Provider Name and Address Organization Details Recorded Time 04/28/20 25 plain X-ray of left knee region completed XIMENA KEATING [facility] 05/05/2025 15:02:31 04/22/20 25 plain X-ray of chest completed XIMENA KEATING [facility], DonteL[facility]obo[facility]. 04/26/2025 19:04:48 04/07/20 25 plain X-ray of chest completed XIMENA KEATING [facility] LJacoboL.C. 04/08/2025 12:01:33 03/28/20 25 plain X-ray of chest completed [facility] 03/31/2025 11:10:09 03/21/20 25 plain X-ray of chest completed [facility] 03/31/2025 11:07:12 03/04/20 25 plain X-ray of chest completed [facility] 03/31/2025 11:09:47 12/27/[address] of chest completed [facility].L.CJacobo 12/27/2024 14:20:38 12/26/19 25 plain X-ray of chest completed [facility], LJacoboL.CJacobo 12/27/2024 14:13:55 11/11/19 25 plain X-ray of cervical spine completed [facility], LJacoboL.CJacobo 11/11/2024 12:44:02 10/01/19 25 angiography completed [facility], L.L.CJacobo 10/01/2024 18:38:18 09/27/19 25 plain X-ray of chest completed [facility] LJacoboL.C. 09/27/2024 18:18:09 09/27/19 25 echocardiography completed [facility] 10/01/2024 18:33:00 09/22/19 25 ultrasonography of right breast completed [facility], L.L.CJacobo 09/21/2024 13:39:24 09/22/19 25 mammography completed [facility], L.L.CJacobo 09/21/2024 13:40:36 09/11/[address] of abdomen completed [facility], LJacoboL.CJacobo 09/13/2024 14:56:32 09/10/19 25 angiography of coronary artery completed [facility], LJacoboL.C. 09/13/2024 14:50:21 09/09/19 25 echocardiography completed [facility], L.L.CJacobo 09/13/2024 14:54:55 09/08/19 25 plain X-ray of chest completed [facility], LJacoboLJacoboCJacobo 09/13/2024 14:57:51 08/24/[address] of chest completed [facility], DonteLJacoboCJacobo 08/24/2024 12:28:02 04/28/20 24 plain X-ray of chest completed [facility], LJacoboLJacoboCJacobo 04/30/2024 11:08:42 03/31/20 24 plain X-ray of chest completed [facility], LJacoboLJacoboCJacobo 04/01/2024 14:05:05 03/27/20 24 imaging guided percutaneous transluminal angioplasty of coronary artery with contrast completed [facility], LJacoboLJacoboCJacobo 10/05/2024 10:23:19 02/28/20 24 radiographic procedure on chest and/or abdomen completed [facility], LJacoboLJacoboCJacobo 03/04/2024 15:02:31 02/28/[address] of abdomen completed [facility], LJacoboL.CJacobo 03/04/2024 15:03:26 01/19/20 24 diagnostic radiography of abdomen completed [facility], LJacoboLJacoboCJacobo 01/21/2024 17:26:25 01/06/20 24 plain X-ray of chest completed [facility], LJacoboLJacoboCJacobo 01/07/2024 15:42:42 12/27/19 24 plain X-ray of chest completed [facility], LJacoboL.CJacobo 12/29/2023 23:23:06 12/27/19 24 CT of chest, abdomen and pelvis completed [facility], LJacoboLJacoboCJacobo 12/29/2023 23:32:58 12/24/19 24 plain X-ray of chest completed [facility], Billie 12/29/2023 23:56:29 12/20/[address] of chest completed [facility], [place] 12/21/2023 12:33:52 12/20/19 24 plain X-ray of chest completed [facility], [place] 12/21/2023 12:34:44 12/09/19 24 plain X-ray of chest completed [facility], [place] 12/12/2023 10:16:37 12/05/19 24 plain X-ray of chest completed [facility], [place] 12/06/2023 13:24:46 11/28/19 24 cardiac catheterization completed [facility], [place] 12/06/2023 13:11:07 11/28/19 24 imaging guided percutaneous transluminal angioplasty of coronary artery with contrast completed [facility], DonteLJacoboCJacobo 10/05/2024 10:22:55 11/27/19 24 plain X-ray of chest completed [facility], KaelynCJacobo 11/28/2023 10:19:35 10/24/19 24 imaging guided percutaneous transluminal angioplasty of coronary artery with contrast completed [facility], L.LJacoboCJacobo 10/05/2024 10:22:32 10/16/19 24 imaging guided percutaneous transluminal angioplasty of coronary artery with contrast completed [facility], LJacoboLJacoboCJacobo 10/05/2024 10:22:12 10/07/19 24 plain X-ray of chest completed [facility], [place] 10/08/2023 17:52:40 09/20/19 24 [facility] 09/26/2023 12:48:56 lobectomy of lung completed XIMENA RISHABH [facility], [place] 10/10/2023 12:32:47 amputation completed XIMENA RISHABH [facility], [place] 08/24/2024 12:24:04 cholecystectomy completed XIMENA RISHABH [facility], [place] 09/13/2024 14:49:22 Imaging Results None recorded. Procedure Notes None recorded. Medical Equipment None Reported. Allergies Allergen ID Allergen Name Allergen Category Reaction Reaction Severity Criticality Documentation Date Start Date Code Code System Note Provider Name and Address Organization Details Recorded Time 94570 acetamino phen medicatio n abdominal pain moderate low 01/19/20232021 161 RxNorm GI upset /into leran ce Anh coles [facility], Billie 4 07:57:42 32522 acetamino phen medicatio n Not available Not available Not available 02/21/20242023 161 RxNorm ELIZABETH HOUSER, [address], [address], [facility], Billie 5 16:14:16 94520 ranolazin e medicatio n Not available Not available Not available 04/14/2025 34960 RxNorm Hallu cinat ions XIMENA RISHABH coles [facility], DonteLJacoboCJacobo 5 11:33:58 Medications Name Sig Start Date [...] her to decrease to 100mg TID [facility] [place] [facility], [facility] and [...] times per day 10/09 completed VO CH/jl; 42720; Recorded 05/14/20 19 10:02AM by Leydi Jessica [...] Last Updated DateTime 152.4 cm 27.7 kg/m2 72044.1 2 g 98 % 78 /min 18 /min 158/82 mm[Hg] XIMENA KEATING [facility] 11:21:53 Social History Question Answer Notes LastModified by Raiing ion Details LastModified Time Tobacco Smoking Status Former Smoker Quit 07/2023 XIMENA KEATING [facility] 12/24/2023 12:30:16 What Type Of Diet Are You Following? REGULAR [email or web address] Information not available 12/24/2023 Which Illicit Or Recreational Drugs Have You Used? Smokes Meth [email or web address] Information not available 10/10/2023 When Did You Quit Smoking? 1-5yearssin celastcigar ette Information not available 12/24/2023 What Was The Date Of Your Most Recent Tobacco Screening? 12/24/2023 Information not available 12/24/2023 What Is Your Current Pack Years? 20-29packye ars Information not available 12/24/2023 What Is Your Relationship Status? Single [email or web address] Information not available 12/24/2023 At What Age Did You Start Smoking Tobacco? 19 Information not available 12/24/2023 How Much Tobacco Do You Smoke? No Information not available 12/24/2023 How Many Years Have You Smoked Tobacco? 20 Information not available 12/24/2023 Sex: Unknown Functional Status Question Answer Note LastModified by Raiing ion Details LastModified Time Do you use any illicit or recreational drugs? Yes Quit Meth 07/2023 [email or web address] Information not available 12/24/2023 Do you or have you ever used any other forms of tobacco or nicotine? No Information not available 12/24/2023 What is your level of alcohol consumption? None [email or web address] Information not available 10/10/2023 Are you currently employed? No disabled Information not available 10/10/2023 Are you able to walk independently without assistance or assistive devices? YESASSIST [email or web address] Information not available 10/10/2023 Are you able to care for yourself independently? No Mother is her caregiver. [email or web address] Information not available 10/10/2023 Do you or have you ever used any nicotine-free cigarettes, vape, or chewing tobacco? No Information not available 12/24/2023 Mental Status None recorded. Family History Relationship Description Onset Age of this Age Resolved Age Notes LastModified by Organization Details LastModified Time Mother Myocardial infarction In her 50's [email or web address] Not available 12/29/2023 23:44:26 Mother Rheumatoid arthritis Not available 12/28 23:44:44 Brother Acute lymphoid leukemia [email or web address] Not available 10/18 18:24:23 Medical History Condition [...] pneumococcal polysaccharide PPV23 8 completed SUZANNE HEATON [address] [place] [address], [address], [facility] 12/24/2023 12:51:09 Past Encounters Encounter ID Performer Location Encounter Start Date Encounter Closed Date Diagnosis/Indication Diagnosis SNOMED-CT Code Diagnosis ICD10 Code Diagnosis IMO Codes Diagnosis Note [id number] SUZANNE HEATON [facility] ([facility]) [address] [place] [address] 03/03/2025 12:06:42 03/03/2025 14:00:46 Neuropathy due to diabetes mellitus 613310246 E11.40 Decrease gabapentin to 100mg three times daily. Chronic renal failure 90 345272 N18.5 79609066 Dialysis. Hyperkalemia 06737099 E8 7.5 9805 Labs checked yesterday at Dialysis. Atypical chest pain 1025 35920 R07.89 695328 Recurrent. Following with cardiology . Recently started Isosorbide . History of abnormal cervical Papanicolaou smear 796502433 Z87.42 4819086 [id number] SUZANNE HEATON [facility] ([facility]) [address] [place] [address] 03/31/2025 10:56:17 03/31/2025 12:04:26 Chronic chest pain 5346126054 80474 R07.9 G89.29 727214 Spasm 48787325 M62.838 Pain in bi lateral legs 3051291512 9661330 M79.604 M79.605 Site-speci fic infective disorders of skin 844383953 L08.9 68338 right index finger Chronic pain syndrome 37 2461662 G89.4 98179 Gabapentin . Health Concerns Section Related Observation LastModified by Organization Detai ls LastModified Time None Recorded Concern Status LastModified by Organization Details LastModified Time None Recorded Payers Encounter Date Sequence Insurance Name Policy Number Policy Varela Covered Member ID Varela Member ID Guarantor Name 03/31/2025 1 [place] Donita Aguilar [id number] Donita Aguilar 03/31/2025 2 [place] Donita Aguilar [id number] Donita Aguilar Notes Date Note Type Note Provider Name and Address Organization Details Recorded Time 5 text/html Angina/Chest PainReported by PatientHPIFor quality, patient reportsheaviness. For context, patient reportsat rest. For severity, patient reportsmoderate. For onset/timing, patient reportshas noted for yearsandintermittent. For alleviating factors, patient reportsnitroglycerinandre st. SUZANNE HEATON [address] [place], [address], [facility], LJolene 03/31/2025 17:08:26 OBGyn Episode No OBEpisode recorded.
--- NOTE | 2025-05-15 22:33 | CTR_ITS ---
PROCEDURE INFORMATION: Exam: CT Abdomen And Pelvis Without Contrast Exam date and time: 05/15/2025 11:33 PM Age: 39 years old Clinical indication: Abdominal pain; Prior surgery; Surgery date: 6+ months; Surgery type: Lll lobectomy. Coronary stents. Gb. C/O left flank pain with diarrhea. ; Additional info: L flank pain, diarrhea TECHNIQUE: Imaging protocol: Computed tomography of the abdomen and pelvis without contrast. Radiation optimization: All CT scans at this facility use at least one of these dose optimization techniques: automated exposure control; mA and/or kV adjustment per patient size (includes targeted exams where dose is matched to clinical indication); or iterative reconstruction. COMPARISON: CT abdomen pelvis wo con [id number] 02/14/2025 1:37 AM RADIATION DOSE METRICS: Total DLP (mGy-cm): 500.53 FINDINGS: Lungs: Right lower lobe granuloma. Left lower lobectomy changes. Heart: Base of heart is unremarkable as visualized. Coronary arteries: Coronary stents in place. Superimposed dense coronary artery atherosclerotic disease. Liver: Normal. No mass. Gallbladder and biliary ducts: Cholecystectomy changes. Similar-appearing prominence of the biliary system from prior comparison. Pancreas: Significant atrophy of the pancreas. Spleen: Splenic granulomas. Adrenal glands: Normal. No mass. Kidneys and ureters: Normal. No hydronephrosis. Stomach and bowel: Unremarkable. No obstruction. No mucosal thickening. Appendix: No evidence of appendicitis. Intraperitoneal space: Unremarkable. No free air. No significant fluid collection. Vasculature: Few calcified pelvic phleboliths are present. Heavy peripheral arterial vascular disease. Lymph nodes: Right hilar calcified lymph nodes. Urinary bladder: Similar thickened urinary bladder wall. Reproductive: Unremarkable as visualized. Bones/joints: L4 limbus vertebra. Bones appear demineralized. Soft tissues: Unremarkable. CT/CT abdomen pelvis wo con [id number] IMPRESSION: No acute findings.
--- NOTE | 2025-05-15 22:33 | XRR_ITS ---
PROCEDURE INFORMATION: Exam: XR Chest Exam date and time: 05/15/2025 11:24 PM Age: 39 years old Clinical indication: Prior surgery; Surgery date: 6+ months; Surgery type: Lll lobectomy. Coronary stents. Gb. Edema. History of esrd. ; Additional info: Esrd, edema TECHNIQUE: Imaging protocol: Radiologic exam of the chest. Views: 1 view. COMPARISON: CR XR chest 1V portable [id number] 04/22/2025 8:54 AM FINDINGS: Lungs: Postprocedural changes of the left lung consistent with left lower lobe lobectomy. Pleural spaces: Unremarkable. No pleural effusion. No pneumothorax. Heart/Mediastinum: Coronary stents in place. Diaphragm: Left diaphragm eventration similar to prior comparison. Bones/joints: Bones appear demineralized. XR/XR chest 1V portable [id number] IMPRESSION: No acute findings.
--- NOTE | 2025-05-15 22:35 | ECG_ITS ---
[facility] Test Date: 2025-05-15 Pat Name: Donita Aguilar Department: Room: Gender: Female Research Project Coordinator: : 1985 Requested By: Justyn Buckley Order Number: [id number] Salmeron MD: Gilberto Eugene M.D. Measurements Intervals [place] Rate: 83 P: 63 [place]: 203 QRS: -24 QRSD: 111 T: 1 QT: 406 QTc: 479 Interpretive Statements SINUS RHYTHM POSSIBLE LEFT ATRIAL ENLARGEMENT [-0.1mV P-WAVE IN V1/V2] INFERIOR MYOCARDIAL INFARCTION , PROBABLY OLD [40+ ms Q WAVE AND/OR ST/T ABNORMALITY IN II/aVF] Compared to ECG 04/22/2025 14:50:54 No significant changes Electronically Signed On 05-16-2025 17:25:18 CASING TIER by Gilberto Eugene M.D. [id number] [id number]
--- NOTE | 2025-05-15 22:37 | W.ED.ABDPA2 ---
HPI - Abdominal Pain General: Chief Complaint: Abdominal Pain Stated Complaint: flank pain, kidneys hurting. Potassium was high Time Seen by Provider: 05/15/25 22:10 History of Present Illness: Patient is a 39yoF with a history of diabetes, end-stage renal disease on dialysis, and CAD sp PCI who presents with acute onset left-sided flank pain that began abruptly tonight. She is Saturday dialysis, last received earlier today and reportedly had a normal session. She still makes a mild amount of urine, noting a few drops in the morning, no blood or dysuria associated with that this morning. Associated symptoms include nausea and diarrhea, but no vomiting. She denies fever, kidney stones, recent antibiotic use, trauma, or falls. She also reports feeling warm and mildly clammy earlier today, still been able to tolerate some p.o. Associated Symptoms: Reports diarrhea and nausea Related Data Home Medications ?Medication ?Instructions ?Recorded ?Confirmed gabapentin 100 mg capsule 100 mg PO TID 12/27/23 05/10/25 clopidogrel 75 mg tablet 75 mg PO DAILY 04/28/24 05/10/25 escitalopram oxalate 20 mg tablet 20 mg PO DAILY anxiety 02/14/25 05/10/25 folic acid 1 mg tablet 1 mg PO DAILY 02/14/25 05/10/25 hydralazine 25 mg tablet 12.5 mg PO BID 02/14/25 05/10/25 nitroglycerin 0.4 mg sublingual See Rx Instructions .Route .COMPLEX 02/22/25 05/10/25 tablet cyclobenzaprine 10 mg tablet 10 mg PO TID PRN MUSCLE SPASM 04/22/25 05/10/25 tramadol 50 mg tablet 50 mg PO DAILY 04/22/25 05/10/25 Previous Rx's ?Medication ?Instructions ?Recorded blood-glucose sensor (Dexcom G6 #3 ea 06/12/22 Sensor device) blood-glucose transmitter (Dexcom #1 ea 06/12/22 G6 Transmitter device) blood-glucose,windows vmware engineer,cont #1 ea 06/12/22 (Dexcom G6 Graduate Intern) sevelamer carbonate 800 mg tablet 800 mg PO TID #90 tabs 09/16/23 aspirin 81 mg tablet,delayed 81 mg PO QAM 30 days #30 tabs 03/28/24 release atorvastatin 40 mg tablet 40 mg PO BEDTIME 30 days #30 tabs 03/28/24 AFO brace #1 ea 04/20/24 diabetic shoes with 3 inserts #1 ea 04/20/24 amlodipine 5 mg tablet 5 mg PO DAILY #30 tabs 09/30/24 insulin aspart U-100 100 unit/mL See Rx Instructions .Route 12/28/24 (3 mL) subcutaneous pen (Novolog .COMPLEX #15 mL FlexPen U-100 Insulin aspart) colchicine 0.6 mg tablet 0.6 mg PO DAILY #30 tabs 04/23/25 isosorbide mononitrate 60 mg 60 mg PO DAILY #30 tabs 04/23/25 tablet,extended release 24 hr Allergies Allergy/AdvReac Type Severity Reaction Status Date / Time acetaminophen AdvReac Mild ADR-Gastrointestinal Verified 05/10/25 11:41 Upset Review of Systems General: Reports: 10 or more systems reviewed and unremarkable except in HPI and below GI: Reports: nausea and diarrhea : Reports: flank pain PFSH ED PFSH: Medical History (Updated 05/16/25 @ 01:12 by Justyn Buckley DO) Insulin dependent diabetes mellitus with complications Chest pain Diabetes mellitus Primary hypertension HTN (hypertension), benign Hyperkalemia Headache Accelerated hypertension Uncontrolled type 1 diabetes mellitus ESRD (end stage renal disease) Dialysis complication Hypoglycemia Hemodialysis catheter dysfunction Colitis End stage renal disease on dialysis COPD (chronic obstructive pulmonary disease) Transaminitis Intractable nausea and vomiting Hyperlipidemia CHF (congestive heart failure), NYHA class III Pulmonary hypertension Coronary artery disease involving chinik heart with angina pectoris, unspecified vessel or lesion type Neurogenic bladder COVID-19 Tobacco dependence Drug abuse Anemia Community acquired pneumonia Esophagitis Long-term insulin use History of pancreatitis Celiac disease Recurrent UTI Non-alcoholic fatty liver disease Arnold-Chiari malformation Diabetic gastroparesis -continue Reglan Diabetic neuropathy associated with type 1 diabetes mellitus Headache, common migraine, intractable, with status migrainosus Pleural effusion 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 History of lung surgery -s/p LLL lobectomy secondary to cavitary pneumonia (2016) History of endoscopy History of cholecystectomy Family History Grandfather Diabetes Mother CAD (coronary artery disease) Diabetes Heart disease Hypertension Brother Acute lymphoblastic leukemia (ALL) in child Grandmother Thyroid disease Denies family history of Colon cancer Ovarian cancer Prostate cancer Hyperlipidemia Breast cancer Uterine cancer Stroke Social History Smoking and tobacco/nicotine status: former use of tobacco/nicotine Quit status (tobacco/nicotine): has quit using Former quit date comment: She previously smoked <1/2 PPD, quit July 2023. 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 Abdomen soft, nondistended, nontender, no overlying skin changes, bowel sounds intact, mild left CVA tenderness. Breathing comfortably on room air, no adventitious lung sounds, able to speak in full sentences. Normal sinus rhythm with no leg swelling, 2+ pulses throughout, good cap refill. Course Vital Signs: Vital signs: Vital Signs Temperature 98.5 F 05/15/25 22:07 Pulse Rate 76 05/16/25 01:23 Respiratory Rate 15 05/16/25 01:23 Blood Pressure 142/83 05/16/25 01:23 Pulse Oximetry 97 05/16/25 01:23 Oxygen Delivery Me thod Room Air 05/15/25 22:07 MDM - Abdominal Pain Medical Decision Making -ddx: Pyelonephritis, nephrolithiasis, perinephric abscess, dehydration, electrolyte abnormality, enteritis, foodborne illness, gastritis Patient clinically with 1 day of mild GI symptoms, received dialysis that is normal this morning, has had some worsening left flank pain, still makes a mild amount of urine, will evaluate with abdominal, infectious labs, get CT Noncon, treat with Zofran and low-dose morphine and reassess. -patient with reassuring ED elaine, elev CR but consistent with ESRD and no acute indications for emergent HD. no systemic infectino or inflammation, no markers of end organ damage. CXR with no effusions, pulm vasc congestion, no infiltrates. EKG with no ischemic changes, no peaked T waves. CT AP reasuring for no acute intraabdominal pathology, had some phleboliths that could be contributing mildly to her pain. on exam, pain was almost compltely resolved, she was able to PO without issue and so was able to be discharged home with recommendations to fu with PCP in a few days, strict return precautions given , dc'd with father at bedside. Lab Data 05/15/25 23:07 05/15/25 23:07 Labs/Radiology: Radiology Impressions Abdomen/Pelvis CT 05/15/25:33 IMPRESSION: No acute findings. Chest X-Ray 05/15/25 IMPRESSION: No acute findings. Laboratory Results WBC 6.81 10^3/uL (3.29-11.43) 05/15/25 23:07 RBC 3.74 10^6/uL (3.85-5.65) L 05/15/25 23:07 Hgb 11.00 g/dL (11.27-16.99) L 05/15/25 23:07 Hct 34.4 % (36-47) L 05/15/25 23:07 MCV 92.0 fl (85-98) 05/15/25 23:07 MCH 29.4 pg (27-33) 05/15/25 23:07 MCHC 32.0 g/dL (30-55) 05/15/25 23:07 RDW 13.1 % (12.1-15.1) 05/15/25 23:07 Plt Count 186 10^3/cmm (157-399) 05/15/25 23:07 MPV 9.1 fL (7.4-10.4) 05/15/25 23:07 Neut % (Auto) 61.1 % 05/15/25 23:07 Lymph % (Auto) 22.9 % 05/15/25 23:07 Nash % (Auto) 10.7 % 05/15/25 23:07 Eos % (Auto) 4.3 % 05/15/25 23:07 Baso % (Auto) 0.7 % 05/15/25 23:07 Neut # (Auto) 4.16 10^3/uL (1.8-7.7) 05/15/25 23:07 Lymph # (Auto) 1.6 10^3/uL (0.8-4.8) 05/15/25 23:07 Nash # (Auto) 0.7 10^3/uL (0.2-0.9) 05/15/25 23:07 Eos # (Auto) 0.3 10^3/uL (0.0-0.8) 05/15/25 23:07 Baso # (Auto) 0.1 10^3/uL (0.0-0.1) 05/15/25 23:07 Nucleated RBC % (auto) 0 % 05/15/25 23:07 Nucleated RBCs # 0.0 /100WBC 05/15/25 23:07 Sodium 136 mmol/L (136-145) 05/15/25 23:07 Potassium 4.8 mmol/L (3.5-5.1) 05/15/25 23:07 Chloride 93 mmol/L (98-107) L 05/15/25 23:07 Carbon Dioxide 37 mmol/L (22-29) H 05/15/25 23:07 Anion Gap 10.8 (5-19) 05/15/25 23:07 BUN 8 mg/dL (6-20) 05/15/25 23:07 Creatinine 3.1 mg/dL (0.5-0.9) H 05/15/25 23:07 GFR Calculation 16.8 mL/min (90-130) L 05/15/25 23:07 Glucose 207 mg/dL (65-115) H 05/15/25 23:07 Calculated Osmolality 286 mOsm/kg (285-295) 05/15/25 23:07 Calcium 9.2 mg/dL (8.5-10.5) 05/15/25 23:07 Phosphorus 3.7 mg/dL (2.5-4.5) 05/15/25 23:07 Magnesium 2.0 mg/dL (1.7-2.3) 05/15/25 23:07 Total Bilirubin 0.3 mg/dL (0.15-1.2) 05/15/25 23:07 AST 31 U/L (0-32) 05/15/25 23:07 ALT 40 U/L (0-33) H 05/15/25 23:07 Alkaline Phosphatase 221 U/L (35-105) H 05/15/25 23:07 C-Reactive Protein 3.0 mg/L (0.0-4.9) 05/15/25 23:07 Total Protein 7.9 g/dL (6.6-8.7) 05/15/25 23:07 Albumin 3.7 g/dL (3.5-5.2) 05/15/25 23:07 Globulin 4.2 g/dL (1.3-4.6) 05/15/25 23:07 Lipase 18 U/L (13-60) 05/15/25 23:07 All radiology interpretation(s) finalized by discharge Discharge Plan Discharge Patient Disposition: Home Clinical Impression: ESRD (end stage renal disease), Flank pain, left side Condition: Stable Prescriptions: No Action (DME) AFO brace See Rx Instructions .Route .MEDSUPPLY Qty: 1 0RF Rx Instructions: As directed to the shoe guys (DME) diabetic shoes with 3 inserts See Rx Instructions .Route .MEDSUPPLY Qty: 1 0RF Rx Instructions: As directed to the shoe guys [place] Dexcom G6 Graduate Intern Misc See Rx Instructions .Route Qty: 1 0RF Rx Instructions: As directed [place] Dexcom G6 Sensor Device See Rx Instructions .Route Qty: 3 0RF Rx Instructions: As directed [place] Dexcom G6 Transmitter Device See Rx Instructions .Route Qty: 1 0RF Rx Instructions: As directed atorvastatin 40 mg tablet 40 mg PO BEDTIME 30 Days Qty: 30 0RF aspirin 81 mg tablet,delayed release (DR/EC) 81 mg PO QAM 30 Days Qty: 30 0RF amlodipine 5 mg Tablet 5 mg PO DAILY Qty: 30 0RF sevelamer carbonate 800 mg Tablet 800 mg PO TID Qty: 90 0RF gabapentin 100 mg Capsule 100 mg PO TID clopidogrel 75 mg tablet 75 mg PO DAILY insulin aspart U-100 [Novolog FlexPen U-100 Insulin] 100 unit/mL (3 mL) insulin pen See Rx Instructions .ROUTE .COMPLEX Qty: 15 0RF Rx Instructions: Inject 3 times daily, subcut, after meals, based on low-dose sliding scale. hydralazine 25 mg tablet 12.5 mg PO BID folic acid 1 mg tablet 1 mg PO DAILY escitalopram oxalate 20 mg tablet 20 mg PO DAILY nitroglycerin 0.4 mg tablet, sublingual See Rx Instructions .ROUTE .COMPLEX Rx Instructions: DISSOLVE ONE TABLET UNDER THE TONGUE EVERY 5 MINUTES NEEDED FOR CHEST PAIN. DO NOT EXCEED A TOTAL OF 3 DOSES IN 15 MINUTES. tramadol 50 mg tablet 50 mg PO DAILY cyclobenzaprine 10 mg tablet 10 mg PO TID PRN (Reason: MUSCLE SPASM ) colchicine 0.6 mg tablet 0.6 mg PO DAILY Qty: 30 0RF isosorbide mononitrate 60 mg tablet extended release 24 hr 60 mg PO DAILY Qty: 30 0RF Discharge Orders: Discharge ED (Routine); Ordered 05/16/25 Ordered By: Justyn Buckley Referrals: Elizabeth Dougherty FNP [Primary Care Provider, Unknown] Discharge Diet: Usual diet Discharge Activity: Resume usual activity Patient Instructions: Abdominal Pain (ED), Opioid Safety, Pain Management, Patient Portal & [place] Instructions Activity Restrictions/Additional Instructions: You were seen for your left lower back pain, you were evaluated with labs and imaging that were ultimately reassuring for no infection, postdialysis complications or other emergencies. You were found to have some calcifications and granulomas near your left kidney that might be causing some your pain, you improved with medication and were deemed stable to be discharged home. Follow-up with your primary care doctor early next week for reevaluation of your symptoms, continue with dialysis as originally scheduled. Return to the ED with severe worsening of the pain, continuous vomiting, fevers, inability to eat or drink, any other emergent concerns. Print Language: Kyrgyz Coding Level of Care Code ED Drafter Topographical for Reji Chandler
[2025-05-15 22:58] VITALS: BP 135/63; PULSE 83; RESP 15; O2SAT 99
[2025-05-15 23:12] LABS: Hematocrit 34.4 % (36-47); Hemoglobin 11.00 g/dL (11.27-16.99); Mean Corpuscular HGB Conc 32.0 g/dL (30-55); Mean Corpuscular Hemoglobin 29.4 pg (27-33); Mean Corpuscular Volume 92.0 fl (85-98); Nucleated Red Blood Cells % 0 %; Platelet Count 186 10^3/cmm (157-399); Red Blood Count 3.74 10^6/uL (3.85-5.65); White Blood Count 6.81 10^3/uL (3.29-11.43)
[2025-05-15 23:21] VITALS: RESP 16
[2025-05-15] MEDS: morphine 4 mg/mL SDV 1 mL 2 MG IVP (23:21)
[2025-05-15 23:22] VITALS: BP 175/92; PULSE 83; O2SAT 99
[2025-05-15 23:28] LABS: Alanine Aminotransferase 40 U/L (0-33); Albumin Level 3.7 g/dL (3.5-5.2); Alkaline Phosphatase 221 U/L (35-105); Anion Gap 10.8 (5-19); Aspartate Amino Transferase 31 U/L (0-32); Blood Urea Nitrogen 8 mg/dL (6-20); Calcium 9.2 mg/dL (8.5-10.5); Carbon Dioxide 37 mmol/L (22-29); Chloride 93 mmol/L (98-107); Globulin 4.2 g/dL (1.3-4.6); Glucose 207 mg/dL (65-115); Lipase 18 U/L (13-60); Magnesium 2.0 mg/dL (1.7-2.3); Osmolality Calculated 286 mOsm/kg (285-295); Potassium 4.8 mmol/L (3.5-5.1); Sodium 136 mmol/L (136-145); Total Protein 7.9 g/dL (6.6-8.7)
[2025-05-15 23:30] VITALS: BP 163/89; PULSE 82; RESP 18; O2SAT 98
[2025-05-16 00:33] VITALS: BP 155/76; PULSE 77; RESP 15; O2SAT 98
[2025-05-16 01:10] VITALS: BP 142/83; PULSE 75; RESP 23; O2SAT 99
[2025-05-16 01:14] VITALS: RESP 18; O2SAT 98
[2025-05-16] MEDS: oxyCODONE 5 mg IR Tab/Cap PO (01:14)
[2025-05-16 01:23] VITALS: BP 142/83; PULSE 76; RESP 15; O2SAT 97
== END 2025-05-16 01:25 | disposition home or self-care (01) ==
PROVIDERS: Emergency Provider Student in an Organized Health Care Education/Training Program; PCP Nurse Practitioner Family
DX: R10.A2 Flank pain, left side (principal); Z79.82 Long term (current) use of aspirin; Z79.02 Long term (current) use of antithrombotics/antiplatelets; Z79.4 Long term (current) use of insulin; Z87.891 Personal history of nicotine dependence; J44.9 Chronic obstructive pulmonary disease, unspecified; E10.22 Type 1 diabetes mellitus with diabetic chronic kidney disease; I13.2 Hypertensive heart and chronic kidney disease with heart failure and with stage 5 chronic kidney disease, or end stage renal disease; I50.9 Heart failure, unspecified; N18.6 End stage renal disease; Z99.2 Dependence on renal dialysis; I25.10 Atherosclerotic heart disease of native coronary artery without angina pectoris; E78.5 Hyperlipidemia, unspecified
CPT/HCPCS: 71045; 74176; 80053; 83690; 83735; 84100; 85025; 86140; 93005; 96374; 99285; J2270; J9999

== ENCOUNTER 2025-05-23 17:07 | Emergency (ER) | payer MEDICARE, MEDICAID, SELFPAY ==
[2025-05-23 17:10] VITALS: BP 108/72; PULSE 87; RESP 16; TEMP 36.8; O2SAT 98
--- OUTSIDE RECORDS SUMMARY | 2025-05-23 17:13 | XMS_ITS | Continuity of Care Document ---
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 completed [facility], DonteLJacoboCJacobo 09/13/2024 14:57:51 08/24/[address] of chest completed [facility], LJacoboL.CJacobo 08/24/2024 12:28:02 04/28/20 24 plain X-ray of chest completed [facility] 04/30/2024 11:08:42 03/31/20 24 plain X-ray of chest completed [facility] 04/01/2024 14:05:05 03/27/20 24 imaging guided percutaneous transluminal angioplasty of coronary artery with contrast completed [facility], LJacoboLJacoboCJacobo 10/05/2024 10:23:19 02/28/20 24 radiographic procedure on chest and/or abdomen completed [facility] 03/04/2024 15:02:31 02/28/[address] of abdomen [facility] 03/04/2024 15:03:26 01/19/20 24 diagnostic radiography of abdomen completed [facility], L.L.CJacobo 01/21/2024 17:26:25 01/06/20 24 plain X-ray of chest completed [facility] 01/07/2024 15:42:42 12/27/19 24 plain X-ray of chest completed [facility] 12/29/2023 23:23:06 12/27/19 24 CT of chest, abdomen and pelvis completed [facility] L.L.CJacobo 12/29/2023 23:32:58 12/24/19 24 plain X-ray of chest completed [facility] 12/29/2023 23:56:29 12/20/[address] of chest completed [facility], LJacoboLJacoboC. 12/21/2023 12:33:52 12/20/19 24 plain X-ray of chest completed [facility], LJacoboL.CJacobo 12/21/2023 12:34:44 12/09/19 24 plain X-ray of chest completed [facility] 12/12/2023 10:16:37 12/05/19 24 plain X-ray of chest completed [facility] 12/06/2023 13:24:46 11/28/[address] [facility] 12/06/2023 13:11:07 11/28/19 24 imaging guided percutaneous transluminal angioplasty of coronary artery with contrast completed [facility] 10/05/2024 10:22:55 11/27/19 24 plain X-ray of chest completed [facility] 11/28/2023 10:19:35 10/24/19 24 imaging guided percutaneous transluminal angioplasty of coronary artery with contrast completed [facility] 10/05/2024 10:22:32 10/16/19 24 imaging guided percutaneous transluminal angioplasty of coronary artery with contrast completed RISHABH YOUNGER [facility], L.L.CJacobo 10/05/2024 10:22:12 10/07/19 24 plain X-ray of chest completed XIMENA KEATING [facility], LJacoboL.CJacobo 10/08/2023 17:52:40 09/20/19 24 echocardiography completed XIMENAMAHI KEATING [facility], LJacoboL.CJacobo 09/26/2023 12:48:56 lobectomy of lung completed XIMENA RISHABH [facility], LJacoboL.CJacobo 10/10/2023 12:32:47 amputation completed XIMENA RISHABH [facility], L.L.CJacobo 08/24/2024 12:24:[address] [facility], LJacoboL.CJacobo 09/13/2024 14:49:22 Imaging Results None recorded. Procedure Notes None recorded. Medical Equipment None Reported. Allergies Allergen ID Allergen Name Allergen Category Reaction Reaction Severity Criticality Documentation Date Start Date Code Code System Note Provider Name and Address Organization Details Recorded Time 33591 acetamino phen medicatio n abdominal pain moderate low 01/19/20232021 161 RxNorm [facility] upset [facility] 4 07:57:42 93094 acetamino phen medicatio n Not available Not available Not available 02/21/20242023 161 RxNorm NAJMA HOUSER, [facility] [address] [place], [address] [place] [address], L[facility] 5 16:14:16 15211 ranolazin e medicatio n Not available Not available Not available 04/14/2025 02350 RxNorm Todd silveira [facility] 5 11:33:58 Medications Name Sig [...] TAKE 1 TABLET BY MOUTH ONCE DAILY 2024 active Not Available Not Available Not Avai lable amoxicill in 875 mg tablet TAKE 1 [...] wanted her to decrease to 100mg TID [facility], 02/27 and 02/28 Not Available Not Available [...] BY MOUTH TWICE DAILY NEEDED FOR ANXIETY active Not Available Not Available No t Available hydralazi ne 50 mg tablet TAKE [...] times per day 10/09 completed VO CH/jl; 14407; Recorded 05/14/20 19 10:02AM by Leydi Jessica [...] Last Updated DateTime 152.4 cm 27.7 kg/m2 31777.1 2 g 98 % 80 /min 18 /min 136/80 mm[Hg] XIMENA KEATING [facility] 15:40:44 Social History Question Answer Notes LastModified by Organizat ion Details LastModified Time Tobacco Smoking Status Former Smoker Quit 07/2023 XIMENA KEATING [facility] 12/24/2023 12:30:16 What Type Of Diet Are You Following? REGULAR [email or web address] Information not available 12/24/2023 Which Illicit Or Recreational Drugs Have You Used? Smokes Meth [email or web address] Information not available 10/10/2023 When Did You Quit Smoking? 1-5yearssin celastciwily ette Information not available 12/24/2023 What Was The Date Of Your Most Recent Tobacco Screening? 12/24/2023 Information not available 12/24/2023 What Is Your Current Pack Years? 20-29packye ars Information not available 12/24/2023 What Is Your Relationship Status? Single [email or web address] Information not available 12/24/2023 At What Age [...] or recreational drugs? Yes Quit Meth 07/2023 [email or web address] Information not available 12/24/2023 Do you or have you ever used any other forms of tobacco or nicotine? No Information not available 12/24/2023 What is your level of alcohol consumption? None [email or web address] Information not available 10/10/2023 Are you currently employed? No disabled [email or web address] Information not available 10/10/2023 Are you able to walk independently without assistance or assistive devices? YESASSIST Information not available 10/10/2023 Are you able to care for yourself independently? No Mother is her caregiver. [email or web address] Information not available 10/10/2023 Do you or have you ever used any nicotine-free cigarettes, vape, or chewing tobacco? No Information not available 12/24/2023 Mental Status None recorded. Family History Relationship Description Onset Age of this Age Resolved Age Notes LastModified by Organization Details LastModified Time Mother Myocardial infarction In her 50's [email or web address] Not available 12/29/2023 23:44:26 Mother Rheumatoid arthritis [email or web address] Not available 12/28 23:44:44 Brother Acute lymphoid leukemia [email or web address] Not available 10/18 18:24:23 Medical History Condition Response Heart Problems Y Coronary Artery Disease Y Hospitalizations Y Lung Disease Y COPD Y Depression Y Diabetes Y Anxiety Disorder Y High Cholesterol Y Heart Disease Y Headaches Y Hypertension Y Kidney Disease Y Gynecological HistoryNo gynecological history recorded. Obstetrics History GPAL:G 0 P 0 0 0 0 Immunizations Vaccine Type Date Status Note Provider Nam e and Address Organization Details Recorded Time pneumococcal polysaccharide PPV23 8 completed SUZANNE HEATON [address] [place] [address], [address], [facility], LDrake 12/24/2023 12:51:09 Past Encounters Encounter ID Performer Location Encounter Start Date Encounter Closed Date Diagnosis/Indication Diagnosis SNOMED-CT Code Diagnosis ICD10 Code Diagnosis IMO Codes Diagnosis Note [id number] SUZANNE HEATON [facility] [address] [place] [address] 04/14/2025 11:22:24 04/14/2025 14:24:51 Chronic chest pain 5171021255 73541 R07.9 G89.29 141498 Essential hypertension 22705905 I10 18625 Took her blood pressure medication about an hour ago. Pressure at home has been pretty good. Type 1 mainor betes mellitus 82992550 E10.[address] Ortega. Will schedule pump training with patient on a MWF. Will have property utilization officer set up a time where she can use an exam room here. [id number] SUZANNE HEATON [facility] ([facility]) [address] [place] [address] 05/05/2025 14:52:32 05/05/2025 16:30:15 Pain of knee region 5968512149 M25.569 Chest pain 23890614 R07. 9 122922 Recurrent. Following with cardiology . Recently started colchicine daily and it has been helpful. Chronic ki dney disease stage 5 105799552 N18.5 Z99.2 Currently on dialysis. Generalize d anxiety disorder 96658928 F41.1 09252 Unable to lay still for MRI. Will [...] 05/05/2025 1 [place] Donita Aguilar [id number] Donita Aguilar 05/05/2025 2 [place] Donita Aguilar [id number] Donita Aguilar Notes Date Note Type Note Provider Name and Address Organization Details Recorded Time 05/05/2025 text/html Generalized Anxi ety DisorderReported by Patient Joint PainReported by PatientHPIFor quality, patient reportsdull. For location, patient reportsleft knee. For severity, patient reportsno change. For duration, patient reportspresent <1 month. For timing, patient reportsconstant. SUZANNE HEATON [address] [place] [address], [phone], [facility] 05/06/2025 10:11:39 OBGyn Episode No OBEpisode recorded.
--- OUTSIDE RECORDS SUMMARY | 2025-05-23 17:13 | XMS_ITS | Clinical Summary ---
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 Gender Identity Not on file Sexual [...] 10/11/1999, 09/06/1999 Medical Devices Implanted Type Area [employer] Device Identifier Shelf Expiration Date Model / Serial / Lot Max tracy Flour [id number] - [id number] Implanted:Qty: 2 on 12/17/2016 by Deandre Alan MD at [facility] Biological Left: Lung [employer] 09/19/2019 [id number] / / [id number] Control Implant Funmi Procedures Procedure Name Priority Date/Time Associated Diagnosis Comments HEMOGLOBIN A1C Routine 01/09/2017 2:52 AM CDT from Last 3 Months or Most Recently Relevant to Health Maintenance Results * (ABNORMAL) HEMOGLOBIN A1C (01/09/2017 2:52 AM CDT) HEMOGLOBIN A1C 8.9(H) 4.0 - 6.0 % 01/09/2017 1:31 PM CDT [facility] EST. AVG GLUCOSE, A1C 209 mg/dL 01/09/2017 1:31 PM CDT [facility] Blood 01/09/2017 2:52 AM CDT 01/09/2017 6:53 AM CDT Narrative [facility] - 01/09/2017 1:31 PM CDT Test performed on LookStat[employer] instrumentation using HPLC methodology us Izabela Diamond MD CHEMISTRY ORDERABLES Final Res ult [facility] CLIA# [id number] [address] [place] [address] from Last 3 Months or Most Recently Relevant to Health Maintenance Insurance [place], [place] [id number] [place] [address] MEDICAID Advance Directives For more information, please contact: [phone] * Full Code (Latest Code Status on File) Date Activated Date Inactivated Comments 12/17/2016 1:05 PM 12/27/2016 11:32 PM Care Teams Stone Gluer Relationship Specialty Start Date End Date Shravan Jones DO PCP - General Family Practice 12/04/16
--- OUTSIDE RECORDS SUMMARY | 2025-05-23 17:13 | XMS_ITS | Continuity of Care Document ---
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 L[facility]L.CJacobo 12/29/2023 23:32:58 12/24/19 24 plain X-ray of chest completed [facility], L.L.CJacobo 12/29/2023 23:56:29 12/20/[address] of chest completed [facility], L.L.CJacobo 12/21/2023 12:33:52 12/20/19 24 plain X-ray of chest completed [facility], LJacoboL.CJacobo 12/21/2023 12:34:44 12/09/19 24 plain X-ray of chest completed [facility], L[facility]L.CJacobo 12/12/2023 10:16:37 12/05/19 24 plain X-ray of chest completed [facility] 12/06/2023 13:24:46 11/28/19 24 cardiac catheterization completed [facility] 12/06/2023 13:11:07 11/28/19 24 imaging guided percutaneous transluminal angioplasty of coronary artery with contrast completed [facility], L.L.CJacobo 10/05/2024 10:22:55 11/27/19 24 plain X-ray of chest completed [facility] 11/28/2023 10:19:35 10/24/19 24 imaging guided percutaneous transluminal angioplasty of coronary artery with contrast completed [facility], L.L.CJacobo 10/05/2024 10:22:32 10/16/19 24 imaging guided percutaneous transluminal angioplasty of coronary artery with contrast completed [facility], [place] 10/05/2024 10:22:12 10/07/19 24 plain X-ray of chest completed [facility]NA KEATING [facility] [place] 10/08/2023 17:52:40 09/20/19 24 echocardiography completed XIMENAMAHI KEATING [facility], [place] 09/26/2023 12:48:56 lobectomy of lung completed XIMENA RISHABH [facility], [place] 10/10/2023 12:32:47 amputation completed XIMENAMAHI KEATING [facility] [place] 08/24/2024 12:24:04 cholecystectomy completed XIMENAMAHI KEATING [facility], [place] 09/13/2024 14:49:22 Imaging Results None recorded. Procedure Notes None recorded. Medical Equipment None Reported. Allergies Allergen ID Allergen Name Allergen Category Reaction Reaction Severity Criticality Documentation Date Start Date Code Code System Note Provider Name and Address Organization Details Recorded Time 43396 acetamino phen medicatio n abdominal pain moderate low 01/19/20232021 161 RxNorm GI upset /into leran ce Anh coles [facility], DonteLSanju 4 07:57:42 38115 acetamino phen medicatio n Not available Not available Not available 02/21/20242023 161 RxNorm NAJMA HOUSER, [address], [address] , [facility], LJacoboLJacoboCJacobo 5 16:14:16 02992 ranolazin e medicatio n Not available Not available Not available 04/14/2025 30832 RxNorm Hallu cinat ions [facility] 5 11:33:58 Medications Name Sig Start [...] wanted her to decrease to 100mg TID [facility], 02/27 and 02/28 Not Available Not Available [...] times per day 10/09 completed VO CH/jl; 06848; Recorded 05/14/20 19 10:02AM by Leydi Jessica [...] Updated DateTime 5 152.4 cm 27.7 kg/m2 37674.1 2 g 99 % 88 /min 18 /min 166/108 mm[Hg] 158/98 mm[Hg] [facility] KEATING [facility] 11:38:18 Social History Question Answer Notes LastModified by Organizat ion Details LastModified Time Tobacco Smoking Status Former Smoker Quit 07/2023 XIMENA KEATING [facility] 12/24/2023 12:30:16 What Type Of Diet Are You Following? REGULAR [email or web address] Information not available 12/24/2023 Which Illicit Or Recreational Drugs Have You Used? Smokes Meth [email or web address] Information not available 10/10/2023 When Did You Quit Smoking? 1-5yearssin celastciwily ette Information not available 12/24/2023 What Was The Date Of Your Most Recent Tobacco Screening? 12/24/2023 Information not available 12/24/2023 What Is Your Current Pack Years? 20-29packye ars Information not available 12/24/2023 What Is Your Relationship Status? Single [email or web address] Information not available 12/24/2023 At What Age [...] or recreational drugs? Yes Quit Meth 07/2023 [email or web address] Information not available 12/24/2023 Do you or have you ever used any other forms of tobacco or nicotine? No Information not available 12/24/2023 What is your level of alcohol consumption? None [email or web address] Information not available 10/10/2023 Are you currently employed? No disabled [email or web address] Information not available 10/10/2023 Are you able to walk independently without assistance or assistive devices? YESASSIST Information not available 10/10/2023 Are you able to care for yourself independently? No Mother is her caregiver. [email or web address] Information not available 10/10/2023 Do you or have you ever used any nicotine-free cigarettes, vape, or chewing tobacco? No Information not available 12/24/2023 Mental Status None recorded. Family History Relationship Description Onset Age of this Age Resolved Age Notes LastModified by Organization Details LastModified Time Mother Myocardial infarction In her 50's [email or web address] Not available 12/29/2023 23:44:26 Mother Rheumatoid arthritis [email or web address] Not available 12/28 23:44:44 Brother Acute lymphoid leukemia [email or web address] Not available 10/18 18:24:23 Medical History Condition [...] pneumococcal polysaccharide PPV23 8 completed SUZANNE HEATON [address] [place] [address], [address], [facility], LL[facility]obo[facility]obo 12/24/2023 12:51:09 Past Encounters Encounter ID Performer Location Encounter Start Date Encounter Closed Date Diagnosis/Indication Diagnosis SNOMED-CT Code Diagnosis ICD10 Code Diagnosis IMO Codes Diagnosis Note [id number] SUZANNE HEATON [facility] ([facility]) [address] [place] [address] 03/31/2025 10:56:17 03/31/2025 12:04:26 Chronic chest pain 5691468553 02744 R07.9 G89.29 979393 Spasm 03370747 M62.838 Pain in bi lateral legs 3669551096 6184320 M79.604 M79.605 Site-speci fic infective disorders of skin 357301205 L08.9 56961 right index finger Chronic pain syndrome 37 8960822 G89.4 94525 Gabapentin . [id number] SUZANNE HEATON [facility] ([facility]) [address] [place] [address] 04/14/2025 11:22:24 04/14/2025 14:24:51 Chronic chest pain 8726137388 23302 R07.9 G89.29 891936 Essential hypertension 95212891 I10 33208 Took her blood pressure medication about an hour ago. Pressure at home has been pretty good. Type 1 mainor betes mellitus 94143963 E10.[address] Ortega. Will schedule pump training with patient on a MWF. Will have animal park code enforcement officer set up a time where she can use an exam room here. Health Concerns Section Related Observation LastModified by Organization Detai ls LastModified Time None Recorded Concern Status LastModified by Organization Details LastModified Time None Recorded Payers Encounter Date Sequence Insurance Name Policy Number Policy Varela Covered Member ID Varela Member ID Guarantor Name 04/14/2025 1 [place] Donita Aguilar [id number] Donita Aguilar 04/14/2025 2 [place] Donita Aguilar [id number] Donita Aguilar Notes Date Note Type Note [...] reportshistory of pulmonary disease. SUZANNE HEATON [address] [place], [address], [facility] 04/14/2025 14:09:54 OBGyn Episode No OBEpisode recorded.
--- OUTSIDE RECORDS SUMMARY | 2025-05-23 17:14 | XMS_ITS | Clinical Summary ---
Author Organization [employer] Address [address] [facility] Attn: [place] [address] Care Team Providers Care Claims Assistant Name Role Phone Shravan Jones DO Primary Care Provider [phone] Allergies Active Allergy Reactions Criticality Noted Date [...] subcutaneous injection. 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 [place] [address] Kellee Garcia, INDUSTRIAL MACHINE OPERATOR [address] [place] [address] Health Maintenance Due Date Last [...] 10/11/1999, 09/06/1999 Medical Devices Implanted Type Area Nut Blanker Operator Device Identifier Shelf Expiration Date Model / Serial / Lot Max 1gm Flour [id number] - [id number] Implanted:Qty : 2 on 12/17/2016 by Deandre Alan MD Biological Left: Lung CR BARD[employer] 09/19/2019 [id number] / / [id number] Cath Dialysis Glidepath 14.5fr 24cm Std [id number] - [id number] Implanted:Qty : 1 on 03/18/2024 by Asif Mcclellan MD at [facility] Catheter Right: Chest BARD ANGEL VASC 09/21/2025 [id number] / / [id number] Clip Ligating Horizon Red 372916 - [facility] - [id number] Implanted:Qty : 1 on 08/10/2024 by Chato Fitch MD at [facility] Clip Left: Arm [employer]LE[employer] INC [id number] 05/16/2029 747706 / / [id number] Clip Ligating Horizon Med Ti 053094 - Csc - [id number] Implanted:Qty : 1 on 08/10/2024 by Chato Fitch MD at [facility] Clip Left: Arm TELEFLEX- WECK CLOSURE SYS [id number] 03/31/2029 677221 / / [id number] Dry Wall Nailer Ligaclip Sml Mcs20 - [id number] Implanted:Qty : 1 on 08/10/2024 by Chato Fitch MD at [facility] Clip Left: Arm J&J- [employer] [id number] 03/23/2029 MCS20 / / [id number] Closure Perclose Prostyle Sut Mediate 53240-07 - [id number] Implanted:Qty : 1 on 09/24/2023 by Janell Beauchamp MD at [facility] Closure Device N/A: Groin LOVE- VASC DEVICE [id number] 06/23/2025 34882-86 / / [id number] Closure Perclose Prostyle Sut Mediate 00688-51 - [id number] Implanted:Qty : 1 on 10/24/2023 by Janell Beauchamp MD at [facility] Closure Device Right: Groin LOVE- VASC DEVICE [id number] 07/24/2025 83623-71 / / [id number] Oil Slc 8.5ml [id number] - Sgtin:[id number] Implanted:Qty : 1 on 06/23/2024 by Janey Carrera MD at [facility] Eye Right: Eye [employer] 12/21/2026 [id number] / [id number] / [id number] Graft Vasc Propaten 4-3pil09eq B420732l - [id number] Implanted:Qty : 1 on 08/10/2024 by Chato Fitch MD at [facility] Graft Left: Arm [employer] [id number] 05/21/2027 [id number] / [id number] / Agent Hemostat Surgicel 2x3in 1952s - [id number] Implanted:Qty : 1 on 08/10/2024 by Chato Fitch MD at [facility] Hemostatic Left: Arm J&J- ETH[employer]ON INC [id number] 12/21/20281952S / / [id number] Hemostatic Surgiflo 8ml W/ Thrombin 2994 - [id number] Implanted:Qty : 1 on 08/10/2024 by Chato Fitch MD at [facility] Hemostatic Left: Arm J&J- ETHICON INC [id number] 10/21/2025 2994 / / [id number] Agent Hemostat Surgicel 2x3in 1952s - [id number] Implanted:Qty : 1 on 08/10/2024 by Chato Fitch MD at [facility] Hemostatic Left: Arm J&J- [employer] INC [id number] 12/21/20281952S / / [id number] Stent Synergy Xd 3.0x48mm Evrlms Elut [id number] 0 - [id number] Implanted:Qty : 1 on 09/24/2023 by Janell Beauchamp MD at [facility] Stent N/A: Coronary [employer] [id number] 03/31/2025 [id number] / / [id number] Stent Synergy Xd 2.61z35fs Evrlms Elut [id number] 0 - [id number] Implanted:Qty : 1 on 10/24/2023 by Janell Beauchamp MD at [facility] Stent Left: Coronary [employer] [id number] 08/19/2024 [id number] 220 / / [id number] Control Implant Funmi Procedures Procedure Name Priority Date/Time Associated Diagnosis Comments LIPID PANEL Routine 09/21/2023 6:47 PM CDT HEMOGLOBIN A1C Routine 09/21/2023 6:46 PM CDT from Last 3 Months or Most Recently Relevant to Health Maintenance Results * (ABNORMAL) LIPID PANEL (09/21/2023 6:47 PM CDT) CHOLESTEROL 96 <200 mg/dL 09/21/2023 10:29 PM CDT [facility] TRIGLYCERIDE 164(H) <150 mg/dL 09/21/2023 10:29 PM CDT [facility] HDL 36(L) 40 - 59 mg/dL 09/21/2023 10:29 PM CDT [facility] LDL CALCULATED 27 <100 mg/dL 09/21/2023 10:29 PM CDT [facility] NON-HDL CHOLESTEROL 60 <130 mg/dL 09/21/2023 10:29 PM T [facility] Blood Venipuncture / Unknown 09/21/2023 6:47 PM CDT 09/21/2023 7:10 PM CDT Narrative [facility] - 09/21/2023 10:29 PM CDT TOTAL [...] Lacy MD CHEMISTRY ORDERABLES Final R esult [facility] CLIA # [id number] [address] [address] * (ABNORMAL) HEMOGLOBIN A1C (09/21/2023 6:46 PM CDT) HEMOGLOBIN A1C 6.8(H) <=5.6 % 09/23/2023 9:24 AM CDT [facility] [employer] [facility] EST. AVG GLUCOSE, A1C 148 mg/dL 09/23/2023 9:24 AM CDT [facility] Blood Venipuncture / Unknown 09/21/2023 6:46 PM CDT 09/21/2023 7:08 PM CDT Narrative [facility] - 09/23/2023 9:24 AM CDT HGB A1C INTERPRETATION NORMAL: <5.7% PRE-DIABETES: 5.7 - 6.4% DIABETES: 6.5% OR GREATER Luiz Lacy MD CHEMISTRY ORDERABLES Final R esult [facility] CLIA # [id number] [facility] [address] from Last 3 Months or Most Recently Relevant to Health Maintenance Insurance [place]ICA[place] PART A AND B Advance Directives For more information, please contact: [phone] * Full Code (Latest Code Status on File) Date Activated Date Inactivated Comments 10/24/2023 2:34 PM 10/25/2023 11:47 AM * Full Code Date Activated Date Inactivated Comments 10/24/2023 9:13 AM 10/24/2023 2:34 PM * Full Code Date Activated Date Inactivated Comments 09/24/2023 3:14 PM 09/25/2023 9:51 PM * Full Code Date Activated Date Inactivated Comments 09/21/2023 5:50 PM 09/24/2023 3:14 PM Care Teams Claims Assistant Relationship Specialty Start Date End Date Shravan Jones DO PCP - General Family Practice 12/04/16
--- OUTSIDE RECORDS SUMMARY | 2025-05-23 17:14 | XMS_ITS | Encounter Summary ---
Author Organization [facility] Address [address] [place] [address] Care Team Providers Care Decorative Engraver Apprentice Name Role Phone Shravan Jones DO Primary Care Provider [phone]- [phone] Encounter Details Date Type Department Care Team (Late st Contact Info) Description 01/07/2017 Lab Requisition [facility] Laboratory Services [address] [place] [address] [place] [address] David Ortega MD [address] [place] [address] Social History Tobacco Use Types Packs/Day Years Used Date Smoking Tobacco: Every Day Cigarettes Comments:pt lethargic Comments Unknown Sex and Gender Information Value Date Recorded Sex Assigned at Not on file 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
--- OUTSIDE RECORDS SUMMARY | 2025-05-23 17:14 | XMS_ITS | Encounter Summary ---
Author Organization [facility] Address [address] [place] [address] Care Team Providers Care Executive Marketing Assistant Name Role Phone Shravan Jones DO Primary Care Provider [phone]- [phone] Encounter Details Date Type Department Care Team (Late st Contact Info) Description 01/09/2017 Lab Requisition [facility] Laboratory Services [facility] [address] [place] [address] Izabela Diamond MD NO ADDRESS ON FILE Social History Tobacco Use Types Packs/Day Years Used Date Smoking Tobacco: Every Day Cigarettes Comments:pt lethargic Comments Unknown Sex and Gender Information Value Date Recorded Sex Assigned at Not on file 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 This will have limited patient impact. us Izabela Diamond MD CHEMISTRY ORDERABLES Final Res ult [facility] CLIA# [id number] [address] [place] [id number] * (ABNORMAL) COMPREHENSIVE METABOLIC PANEL (01/09/2017 3:15 AM CDT) SODIUM 139 136 - 145 mmol/L 01/09/2017 5:53 AM CDT [facility] POTASSIUM 4.1 3.5 - 5.1 mmol/L 01/09/2017 5:53 AM T [facility] CHLORIDE 101 98 - 107 mmol/L 01/09/2017 5:53 AM T [facility] CO2 28 21 - 32 mmol/L 01/09/2017 5:53 AM T [facility] CALCIUM 8.8 8.4 - 10.1 mg/dL 01/09/2017 5:53 AM T [facility] BUN 18(H) 7 - 17 mg/dL 01/09/2017 5:53 AM T [facility] CREATININE 0.73 0.55 - 1.02 mg/dL 01/09/2017 5:53 AM T [facility] GLUCOSE 182(H) 74 - 106 mg/dL 01/09/2017 5:53 AM T [facility] TOTAL PROTEIN 8.4(H) 6.4 - 8.2 g/dL 01/09/2017 5:53 AM T [facility] ALBUMIN 2.5(L) 3.4 - 5.0 g/dL 01/09/2017 5:53 AM CDT [facility] BILIRUBIN TOTAL 0.2 0.2 - 1.0 mg/dL 01/09/2017 5:53 AM CDT [facility] ALKALINE PHOSPHATASE 99 25 - 100 U/L 01/09/2017 5:53 AM CDT [facility] AST 30 15 - 37 U/L 01/09/2017 5:53 AM CDT [facility] ALT 27 13 - 61 U/L 01/09/2017 5:53 AM CDT [facility] GFR >60 >=60 mL/min/1.7 3 sq meter 01/09/2017 5:53 AM T [facility] Comment: eGFR has not been [...] 3 sq meter 01/09/2017 5:53 AM CDT [facility] ANION GAP 10 4 - 30 mmol/L 01/09/2017 5:53 AM T [facility] Blood 01/09/2017 3:15 AM CDT 01/09/2017 5:12 AM CDT us Izabela Diamond MD CHEMISTRY ORDERABLES Final Res ult [facility] CLIA# [id number] [address] [place] [address] * (ABNORMAL) CBC WITH DIFFERENTIAL (01/09/2017 3:15 AM CDT) WBC 8.7 4.5 - 11.0 K/uL 01/09/2017 5:20 AM [facility] RBC 4.63 4.20 - 5.40 M/uL 01/09/2017 5:20 AM [facility] HEMOGLOBIN 11.3(L) 12.0 - 16.0 g/dL 01/09/2017 5:20 AM [facility] HEMATOCRIT 36.8 36.0 - 46.0 % 01/09/2017 5:20 AM [facility] MCV 79.5(L) 84.0 - 103.0 fL 01/09/2017 5:20 AM [facility] MCH 24.4(L) 27.0 - 34.0 pg 01/09/2017 5:20 AM [facility] MCHC 30.7 30.0 - 35.0 g/dL 01/09/2017 5:20 AM [facility] RDW 17.3(H) 11.0 - 14.5 % 01/09/2017 5:20 AM [facility] RDW-STDEV 50.4 37.0 - 54.0 fL 01/09/2017 5:20 AM [facility] PLATELETS 463(H) 140 - 440 K/uL 01/09/2017 5:20 AM [facility] MPV 9.9 8.9 - 12.8 fL 01/09/2017 5:20 AM [facility] NEUTROPHILS 46 42 - 75 % 01/09/2017 5:20 AM [facility] LYMPHOCYTES 33 24 - 44 % 01/09/2017 5:20 AM [facility] MONOCYTES 8 2 - 10 % 01/09/2017 5:20 AM [facility] EOSINOPHILS 11(H) 0 - 7 % 01/09/2017 5:20 AM [facility] BASOPHILS 1 0 - 1 % 01/09/2017 5:20 AM [facility] IMMATURE GRANULOCYTES 0 0 - 2 % 01/09/2017 5:20 AM [facility] NEUTROPHIL ABSOLUTE 4.05 2.00 - 8.00 K/uL 01/09/2017 5:20 AM CDT [facility] LYMPHOCYTE ABSOLUTE 2.86 1.20 - 4.00 K/uL 01/09/2017 5:20 AM CDT [facility] MONOCYTE ABSOLUTE 0.73(H) 0.10 - 0.60 K/uL 01/09/2017 5:20 AM CDT [facility] EOSINOPHIL ABSOLUTE 0.95(H) 0.00 - 0.70 K/uL 01/09/2017 5:20 AM CDT [facility] BASOPHILS ABSOLUTE 0.11 0.00 - 0.20 K/uL 01/09/2017 5:20 AM CDT [facility] IMMATURE GRANULOCYTES ABSOLUTE 0.03 0.00 - 0.10 K/uL 01/09/2017 5:20 AM CDT [facility] Blood 01/09/2017 3:15 AM CDT 01/09/2017 5:12 AM CDT us Izabela Diamond MD HEMATOLOGY ORDERABLES Final Re sult [facility] CLIA# [id number] [address] [place] [id number] * (ABNORMAL) HEMOGLOBIN A1C (01/09/2017 2:52 AM CDT) HEMOGLOBIN A1C 8.9(H) 4.0 - 6.0 % 01/09/2017 1:31 PM CDT [facility] EST. AVG GLUCOSE, A1C 209 mg/dL 01/09/2017 1:31 PM CDT [facility] Blood 01/09/2017 2:52 AM CDT 01/09/2017 6:53 AM CDT Narrative [facility] - 01/09/2017 1:31 PM CDT Test performed on [employer] instrumentation using HPLC methodology us Izabela Diamond MD CHEMISTRY ORDERABLES Final Res ult [facility] CLIA# [id number] [address] [place] [address] documented in this encounter Visit Diagnoses Not on filedocumented in this encounter Care Teams Executive Marketing Assistant Relationship Specialty Start Date End Date Shravan Jones DO PCP - General Family Practice 12/04/16 documented as of this encounter
--- OUTSIDE RECORDS SUMMARY | 2025-05-23 17:14 | XMS_ITS | Encounter Summary ---
Author Organization [facility] Address [address] [place] [address] Care Team Providers Care Shoemaking Finisher Name Role Phone Shravan Jones DO Primary Care Provider [phone]- [phone] Encounter Details Date Type Department Care Team (Late st Contact Info) Description 12/12/2016 Nurse Only [facility] 4D Surgery Heart Lung [address] 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
--- OUTSIDE RECORDS SUMMARY | 2025-05-23 17:14 | XMS_ITS | Continuity of Care Document ---
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 Details Recorded Time 04/28/20 25 plain X-ray of left knee region completed XIMENA KEATING [facility] 05/05/2025 15:02:31 04/22/20 25 plain X-ray of chest completed XIMENA KEATING [facility] 04/26/2025 19:04:48 04/07/20 25 plain X-ray of chest completed XIMENA KEATING [facility] 04/08/2025 12:01:33 03/28/20 25 plain X-ray of chest completed [facility] 03/31/2025 11:10:09 03/21/20 25 plain X-ray of chest completed [facility] 03/31/2025 11:07:12 03/04/20 25 plain X-ray of chest completed [facility] 03/31/2025 11:09:47 12/27/[address] of chest completed [facility] 12/27/2024 14:20:38 12/26/19 25 plain X-ray of chest completed [facility], LJacoboL.CJacobo 12/27/2024 14:13:55 11/11/19 25 plain X-ray of cervical spine completed [facility], LJacoboL.CJacobo 11/11/2024 12:44:02 10/01/19 25 angiography completed [facility] 10/01/2024 18:38:18 09/27/19 25 plain X-ray of chest completed [facility], L[facility]oL.C. 09/27/2024 18:18:09 09/27/19 25 echocardiography completed [facility] 10/01/2024 18:33:00 09/22/19 25 ultrasonography of right breast completed [facility] 09/21/2024 13:39:24 09/22/19 25 mammography completed [facility] 09/21/2024 13:40:36 09/11/[address] of abdomen completed [facility], LJacoboL.CJacobo 09/13/2024 14:56:32 09/10/19 25 angiography of coronary artery completed [facility], L[facility].C. 09/13/2024 14:50:21 09/09/19 25 echocardiography completed [facility] 09/13/2024 14:54:55 09/08/19 25 plain X-ray of chest completed [facility], LJacoboLJacoboCJacobo 09/13/2024 14:57:51 08/24/[address] of chest completed [facility], DonteLJacoboCJacobo 08/24/2024 12:28:02 04/28/20 24 plain X-ray of chest completed [facility], LJacoboLJacoboCJacobo 04/30/2024 11:08:42 03/31/20 24 plain X-ray of chest completed [facility], LJacoboLJacoboCJcaobo 04/01/2024 14:05:05 03/27/20 24 imaging guided percutaneous transluminal angioplasty of coronary artery with contrast completed [facility], LJacoboLJacoboCJacobo 10/05/2024 10:23:19 02/28/20 24 radiographic procedure on chest and/or abdomen completed [facility], LJacoboLJacoboCJacobo 03/04/2024 15:02:31 02/28/[address] of abdomen completed [facility], LJacoboL.CJacobo 03/04/2024 15:03:26 01/19/20 24 diagnostic radiography of abdomen completed [facility], LJacoboLJacoboCJacobo 01/21/2024 17:26:25 01/06/20 24 plain X-ray of chest completed [facility], LJacoboLJacoboCJacobo 01/07/2024 15:42:42 12/27/19 24 plain X-ray of chest completed [facility], LJacoboL.CJacobo 12/29/2023 23:23:06 12/27/19 [address] of chest, abdomen and pelvis completed [facility], LJacoboLJacoboCJacobo 12/29/2023 23:32:58 12/24/19 24 plain X-ray of chest completed [facility], Billie 12/29/2023 23:56:29 12/20/[address] of chest completed [facility], [place] 12/21/2023 12:33:52 12/20/19 24 plain X-ray of chest completed [facility], Billie 12/21/2023 12:34:44 12/09/19 24 plain X-ray of chest completed [facility], [place]ie 12/12/2023 10:16:37 12/05/19 24 plain X-ray of chest completed [facility], [place] 12/06/2023 13:24:46 11/28/19 24 cardiac catheterization completed [facility], Billie 12/06/2023 13:11:07 11/28/19 24 imaging guided percutaneous transluminal angioplasty of coronary artery with contrast completed [facility], DonteLJacoboCJacobo 10/05/2024 10:22:55 11/27/19 24 plain X-ray of chest completed [facility], KaelynCJacobo 11/28/2023 10:19:35 10/24/19 24 imaging guided percutaneous transluminal angioplasty of coronary artery with contrast completed [facility], L.LJacoboCJacobo 10/05/2024 10:22:32 10/16/19 24 imaging guided percutaneous transluminal angioplasty of coronary artery with contrast completed [facility], LJacoboLJacoboCJacobo 10/05/2024 10:22:12 10/07/19 24 plain X-ray of chest completed [facility], [place] 10/08/2023 17:52:40 09/20/19 24 [facility]/20[facility] 12:48:56 lobectomy of lung completed XIMENA RISHABH [facility], [place] 10/10/2023 12:32:47 amputation completed XIMENA RISHABH [facility], [place] 08/24/2024 12:24:04 cholecystectomy completed XIMENA RISHABH [facility], [place] 09/13/2024 14:49:22 Imaging Results None recorded. Procedure Notes None recorded. Medical Equipment None Reported. Allergies Allergen ID Allergen Name Allergen Category Reaction Reaction Severity Criticality Documentation Date Start Date Code Code System Note Provider Name and Address Organization Details Recorded Time 34063 acetamino phen medicatio n abdominal pain moderate low 01/19/20232021 161 RxNorm GI upset /into leran ce Anh coles [facility], [place] 4 07:57:42 90096 acetamino phen medicatio n Not available Not available Not available 02/21/20242023 161 RxNorm ELIZABETH HOUSER, [address], [address], [facility], [place] 5 16:14:16 38984 ranolazin e medicatio n Not available Not available Not available 04/14/2025 30908 RxNorm Hallu cinat ions XIMENA RISHABH coles [facility], DonteLJacoboCJacobo 5 11:33:58 Medications Name Sig Start [...] to decrease to 100mg TID [facility]27 and 02/28 Not [...] times per day 10/09 completed VO CH/jl; 00095; Recorded 05/14/20 19 10:02AM by Leydi Jessica [...] Last Updated DateTime 152.4 cm 27.7 kg/m2 03174.1 2 g 98 % 78 /min 18 /min 158/82 mm[Hg] XIMENA RISHABH [facility] 11:21:53 Social History Question Answer Notes LastModified by Tagwhat Details LastModified Time Tobacco Smoking Status Former Smoker Quit 07/2023 XIMENA RISHABH [facility] 12/24/2023 12:30:16 What Type Of Diet Are You Following? REGULAR [email or web address] Information not available 12/24/2023 Which Illicit Or Recreational Drugs Have You Used? Smokes Meth [email or web address] Information not available 10/10/2023 When Did You Quit Smoking? 1-5yearssin celastcigar ette Information not available 12/24/2023 What Was The Date Of Your Most Recent Tobacco Screening? 12/24/2023 Information not available 12/24/2023 What Is Your Current Pack Years? 20-29packye ars Information not available 12/24/2023 What Is Your Relationship Status? Single [email or web address] Information not available 12/24/2023 At What Age Did You Start Smoking Tobacco? 19 Information not available 12/24/2023 How Much Tobacco Do You Smoke? No Information not available 12/24/2023 How Many Years Have You Smoked Tobacco? 20 Information not available 12/24/2023 Sex: Unknown Functional Status Question Answer Note LastModified by Tagwhat Details LastModified Time Do you use any illicit or recreational drugs? Yes Quit Meth 07/2023 [email or web address] Information not available 12/24/2023 Do you or have you ever used any other forms of tobacco or nicotine? No Information not available 12/24/2023 What is your level of alcohol consumption? None [email or web address] Information not available 10/10/2023 Are you currently employed? No disabled Information not available 10/10/2023 Are you able to walk independently without assistance or assistive devices? YESASSIST [email or web address] Information not available 10/10/2023 Are you able to care for yourself independently? No Mother is her caregiver. [email or web address] Information not available 10/10/2023 Do you or have you ever used any nicotine-free cigarettes, vape, or chewing tobacco? No Information not available 12/24/2023 Mental Status None recorded. Family History Relationship Description Onset Age of this Age Resolved Age Notes LastModified by Organization Details LastModified Time Mother Myocardial infarction In her 50's [email or web address] Not available 12/29/2023 23:44:26 Mother Rheumatoid arthritis [email or web address] Not available 12/28 23:44:44 Brother Acute lymphoid leukemia [email or web address] Not available 10/18 18:24:23 Medical History Condition [...] pneumococcal polysaccharide PPV23 8 completed SUZANNE HEATON [address] [place] [address], [address], [facility] 12/24/2023 12:51:09 Past Encounters Encounter ID Performer Location Encounter Start Date Encounter Closed Date Diagnosis/Indication Diagnosis SNOMED-CT Code Diagnosis ICD10 Code Diagnosis IMO Codes Diagnosis Note [id number] SUZANNE HEATON [facility] ([facility]) [address] [place] [address] 03/03/2025 12:06:42 03/03/2025 14:00:46 Neuropathy due to diabetes mellitus 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 Chronic renal failure 90 878404 N18.5 45514973 Dialysis. Hyperkalemia 40199228 E8 7.5 9805 Labs checked yesterday at Dialysis. Atypical chest pain 1025 55834 R07.89 [id number] Recurrent. Following with cardiology . Recently started Isosorbide . History of abnormal cervical Papanicolaou smear 466526649 Z87.42 [id number] SUZANNE HEATON [facility] ([facility]) [address] [place] [address] 03/31/2025 10:56:17 03/31/2025 12:04:26 Chronic chest pain 5899230908 36177 R07.9 G89.29 826834 Spasm 53675585 M62.838 Pain in bi lateral legs 9234623430 3305991 M79.604 M79.605 Site-speci fic infective disorders of skin 581064202 L08.9 90651 right index finger Chronic pain syndrome 37 9044621 G89.4 18625 Gabapentin . Health Concerns Section Related Observation LastModified by Organization Detai ls LastModified Time None Recorded Concern Status LastModified by Organization Details LastModified Time None Recorded Payers Encounter Date Sequence Insurance Name Policy Number Policy Varela Covered Member ID Varela Member ID Guarantor Name 03/31/2025 1 [place] Donita Aguilar [id number] Donita Aguilar 03/31/2025 2 [place] Donita Aguilar [id number] Donita Aguilar Notes Date Note Type Note Provider Name and Address Organization Details Recorded Time 5 text/html Angina/Chest PainReported by PatientHPIFor quality, patient reportsheaviness. For context, patient reportsat rest. For severity, patient reportsmoderate. For onset/timing, patient reportshas noted for yearsandintermittent. For alleviating factors, patient reportsnitroglycerinandre st. SUZANNE HEATON [address] [place], [address], [facility] 03/31/2025 17:08:26 OBGyn Episode No OBEpisode recorded.
--- OUTSIDE RECORDS SUMMARY | 2025-05-23 17:14 | XMS_ITS | Data Portability ---
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 12:28:57 Migraine 72339132 Active 2023 ELIZABETH HOUSER, [address], [address], [facility] 5 16:14:26 Cardiome enoch 6444818 Active 2023 XIMENA coles [facility] 4 12:30:17 Edema 591849974 Active 2023 XIMENA coles [facility] 4 23:45:39 Edema due to fluid overload 162868410 Active 2023 XIMENA coles [facility] 4 23:45:54 End stage renal failure on dialysis 611782176 Active 2023 ELIZABETH HOUSER, [facility] [address] [place], [address], [facility] 5 16:14:26 Esophagi tis 08275747 Active 2024 XIMENA coles [facility] 5 18:23:17 Chronic pain 36422071 Active 2024 Davian Ren MD [address] [place], [address], [facility], LJacoboLJacoboCJacobo 09:12:38 Generali zed anxiety disorder 42938048 Active 2024 ELIZABETH HOUSER, [facility] [address] [place], [address], [facility], Billie 16:12:14 Notes:Some problems listed i n Documents: #[id number], #[id number], #[id number], #[id number] could not be added to this patient's chart. Please review these documents and add these problems to the patient's chart manually as needed. Problem Notes None recorded. Procedures Surgical History Date Name Laterality Status Provider Name and Address Organization Details Recorded Time 04/28/20 25 plain X-ray of left knee region completed [facility], [place] 05/05/2025 15:02:31 04/22/20 25 plain X-ray of chest completed [facility], KaelynCJacobo 04/26/2025 19:04:48 04/07/20 25 plain X-ray of chest completed [facility], Billie 04/08/2025 12:01:33 03/28/20 25 plain X-ray of chest completed [facility], Billie 03/31/2025 11:10:09 03/21/20 25 plain X-ray of chest completed [facility], LJacoboLJacoboCJacobo 03/31/2025 11:07:12 03/04/20 25 plain X-ray of chest completed [facility], KaelynCJacobo 03/31/2025 11:09:47 12/27/[address] of chest completed [facility], KaelynCJacobo 12/27/2024 14:20:38 12/26/19 25 plain X-ray of chest completed [facility] 12/27/2024 14:13:55 11/11/19 25 plain X-ray of cervical spine completed [facility] 11/11/2024 12:44:02 10/01/19 25 angiography completed [facility] 10/01/2024 18:38:18 09/27/19 25 plain X-ray of chest completed [facility] 09/27/2024 18:18:09 09/27/19 25 echocardiography completed [facility] 10/01/2024 18:33:00 09/22/19 25 ultrasonography of right breast completed [facility] 09/21/2024 13:39:24 09/22/19 25 mammography completed [facility] 09/21/2024 13:40:36 09/11/[address] of abdomen completed [facility] 09/13/2024 14:56:32 09/10/19 25 angiography of coronary artery completed [facility] 09/13/2024 14:50:21 09/09/19 25 echocardiography completed [facility] 09/13/2024 14:54:55 09/08/19 25 plain X-ray of chest completed [facility] 09/13/2024 14:57:51 08/24/[address] of chest completed [facility] 08/24/2024 12:28:02 04/28/20 24 plain X-ray of chest completed [facility] 04/30/2024 11:08:42 03/31/20 24 plain X-ray of chest completed [facility] 04/01/2024 14:05:05 03/27/20 24 imaging guided percutaneous transluminal angioplasty of coronary artery with contrast completed [facility], LJacoboLJacoboCJacobo 10/05/2024 10:23:19 02/28/20 24 radiographic procedure on chest and/or abdomen completed [facility], LJacoboL.C. 03/04/2024 15:02:31 02/28/[address] of abdomen completed [facility], LJacoboL.CJacobo 03/04/2024 15:03:26 01/19/20 24 diagnostic radiography of abdomen completed [facility], LJacoboL.C. 01/21/2024 17:26:25 01/06/20 24 plain X-ray of chest completed [facility], LJacoboLJacoboCJacobo 01/07/2024 15:42:42 12/27/19 24 plain X-ray of chest completed [facility] 12/29/2023 23:23:06 12/27/19 24 CT of chest, abdomen and pelvis completed [facility] 12/29/2023 23:32:58 12/24/19 24 plain X-ray of chest completed [facility], LJacoboL.C. 12/29/2023 23:56:29 12/20/[address] of chest completed [facility] 12/21/2023 12:33:52 12/20/19 24 plain X-ray of chest completed [facility], LJacoboL.C. 12/21/2023 12:34:44 12/09/19 24 plain X-ray of chest completed [facility], LJacoboLJacoboCJacobo 12/12/2023 10:16:37 12/05/19 24 plain X-ray of chest completed [facility] 12/06/2023 13:24:46 11/28/19 24 cardiac catheterization completed [facility] 12/06/2023 13:11:07 11/28/19 24 imaging guided percutaneous transluminal angioplasty of coronary artery with contrast completed [facility], L.L.CJacobo 10/05/2024 10:22:55 11/27/19 24 plain X-ray of chest completed [facility], L.L.CJacobo 11/28/2023 10:19:35 10/24/19 24 imaging guided percutaneous transluminal angioplasty of coronary artery with contrast completed [facility], L.L.CJacobo 10/05/2024 10:22:32 10/16/19 24 imaging guided percutaneous transluminal angioplasty of coronary artery with contrast completed [facility], L.L.CJacobo 10/05/2024 10:22:12 10/07/19 24 plain X-ray of chest completed [facility], L.L.CJacobo 10/08/2023 17:52:40 09/20/19 24 echocardiography completed [facility] 09/26/2023 12:48:56 lobectomy of lung completed [facility] 10/10/2023 12:32:47 amputation completed [facility] 08/24/2024 12:24:04 cholecystectomy completed [facility], L.L.CJacobo 09/13/2024 14:49:22 Imaging Results None recorded. Procedure Notes None recorded. Medical Equipment None Reported. Allergies Allergen ID Allergen Name Allergen Category Reaction Reaction Severity Criticality Documentation Date Start Date Code Code System Note Provider Name and Address Organization Details Recorded Time 83572 acetamino phen medicatio n abdominal pain moderate low 01/19/20232021 161 RxNorm GI upset /into leran ce Anh coles, [facility] 4 07:57:42 99873 acetamino phen medicatio n Not available Not available Not available 02/21/20242023 161 RxNorm ELIZABETH HOUSER, [facility] [address] [place], [address] , [facility] 5 16:14:16 82547 ranolazin e medicatio n Not available Not available Not available 04/14/2025 89667 RxNorm Hallu cinat ions XIMENA RISHABH coles, [facility] 5 11:33:58 Medications Name Sig Start [...] wanted her to [email or web address], [facility] and 02/28 Not Available Not Available [...] times per day 10/09 completed VO CH/jl; 06424; Recorded 05/14/20 19 10:02AM by Leydi Jessica [...] Updated DateTime 5 152.4 cm 26.6 kg/m2 18406.5 6 g 95 % 76 /min 20 /min 138/82 mm[Hg] XIMENA KEATING [facility] 5 12:04:30 Date Recorded Body height Body mass index (BMI) Body weight Oxygen saturation Heart rate Respiratory rate Body temperature Systolic And Diastolic Provider Name and Address Organization Details Last Updated DateTime 5 152.4 cm 26.8 kg/m2 14965.1 5 g 97 % 72 /min 18 /min 98 [degF] 120/70 mm[Hg] BRANDON RIVERA [facility] 5 12:37:22 Date Recorded Body height Body mass index (BMI) Body weight Oxygen saturation Heart rate Respiratory rate Systolic And Diastolic Provider Name and Address Organization Details Last Updated DateTime 5 152.4 cm 27.7 kg/m2 87835.1 2 g 98 % 78 /min 18 /min 158/82 mm[Hg] XIMENA RISHABH [facility]obo 5 11:21:53 Date Recorded Body height Body mass index (BMI) Body weight Oxygen saturation Heart rate Respiratory rate Systolic And Diastolic Systolic And Diastolic Provider Name and Address Organization Details Last Updated DateTime 5 152.4 cm 27.7 kg/m2 20777.1 2 g 99 % 88 /min 18 /min 166/108 mm[Hg] 158/98 mm[Hg] XIMENA RISHABH [facility] 5 11:38:18 Date Recorded Body height Body mass index (BMI) Body weight Oxygen saturation Heart rate Respiratory rate Systolic And Diastolic Provider Name and Address Organization Details Last Updated DateTime 5 152.4 cm 27.7 kg/m2 82774.1 2 g 98 % 80 /min 18 /min 136/80 mm[Hg] XIMENA RISHABH [facility] 5 15:40:44 Social History Question Answer Notes LastModified by Organizat ion Details LastModified Time Tobacco Smoking Status Former Smoker Quit 07/2023 XIMENA RISHABH [facility] 12/24/2023 12:30:16 What Type Of Diet Are You Following? REGULAR [email or web address] Information not available 12/24/2023 Which Illicit Or Recreational Drugs Have You Used? Smokes Meth [email or web address] Information not available 10/10/2023 When Did You Quit Smoking? 1-5yearssin celastcigar ette Information not available 12/24/2023 What Was The Date Of Your Most Recent Tobacco Screening? 12/24/2023 Information not available 12/24/2023 What Is Your Current Pack Years? 20-29packye ars Information not available 12/24/2023 What Is Your Relationship Status? Single [email or web address] Information not available 12/24/2023 At What Age [...] or recreational drugs? Yes Quit Meth 07/2023 [email or web address] Information not available 12/24/2023 Do you or have you ever used any other forms of tobacco or nicotine? No Information not available 12/24/2023 What is your level of alcohol consumption? None [email or web address] Information not available 10/10/2023 Are you currently employed? No disabled [email or web address] Information not available 10/10/2023 Are you able to walk independently without assistance or assistive devices? YESASSIST [email or web address] Information not available 10/10/2023 Are you able to care for yourself independently? No Mother is her caregiver. [email or web address] Information not available 10/10/2023 Do you or have you ever used any nicotine-free cigarettes, vape, or chewing tobacco? No Information not available 12/24/2023 Mental Status None recorded. Family History Relationship Description Onset Age of this Age Resolved Age Notes LastModified by Organization Details LastModified Time Mother Myocardial infarction In her 50's [email or web address] Not available 12/29/2023 23:44:26 Mother Rheumatoid arthritis [email or web address] Not available 12/28 23:44:44 Brother Acute lymphoid leukemia [email or web address] Not available 10/18 18:24:23 Medical History Condition Response Coronary Artery Disease Y Heart Problems Y Hospitalizations Y Lung Disease Y COPD [...] pneumococcal polysaccharide PPV23 8 completed SUZANNE HEATON [address] [place], [address], [facility], Billie 12/24/2023 12:51:09 Past Encounters Encounter ID Performer Location Encounter Start Date Encounter Closed Date Diagnosis/Indication Diagnosis SNOMED-CT Code Diagnosis ICD10 Code Diagnosis IMO Codes Diagnosis Note [id number] SUZANNE HEATON [facility] ([facility]) [address] [place] [address] 10/10/2023 11:29:12 10/10/2023 13:24:32 Uncontrolled type 1 diabetes mellitus 123557313 E10.[address] Ortega. End stage renal failure on dialysis 974777769 Z99.2 MWF dialysis. Multi vess el coronary artery disease 968980309 I25.10 Following with cardiology in [facility]. Essential hypertension 58544947 I10 Coronary arteriosclerosis 19152089 I25.10 Follows with cardiology in [facility]. [id number] Matthew Packer DO [facility] ([facility]) [address] [place] [id number] 12/02/2023 12:01:39 12/02/2023 13:56:02 Dental abscess 114750948 K04.7 Will start patient on lower dose amoxicilli n due to her hemodialys is status. Counseled patient that it is imperative that she see and be evaluated by a dentist in the next 2 to 4 weeks. [id number] SUZANNE HEATON [facility] ([facility]) [address] [place] [id number] 12/24/2023 11:37:48 12/24/2023 14:35:44 Mixed anxiety and depressive disorder 475070814 F41.8 Essential hypertension 49744306 I10 Starting Nifedipine today. Type 1 mainor betes mellitus 61490594 E10.[address] Ortega. Pain in bi lateral legs 1404798389 9737509 M79.604 M79.605 Patient reports she took some of her mom's in the past and it was helpful. End stage renal failure on dialysis 995847390 Z99.2 MWF dialysis. [id number] SU[facility]ANNE HEATON [facility] [address] [place] [id number] 01/07/2024 15:11:38 01/07/2024 17:49:26 Edema 222972738 R60.9 Non-pittin g lower extremity. Chest pain 36024809 R07. 9 Recurrent. Following with cardiology . Blood pres sure outside reference range 44961517 Z01.31 Will half dose of nifedipine until she is seen with cardiology . [id number] ELIZABETH HOUSER [facility] ([facility]) [address] [place] [id number] 02/21/2024 11:42:22 02/21/2024 12:51:01 End-stage renal disease 04873009 N18.6 Continue dialysis. Essential hypertension 25127134 I10 Blood pressure good today. Continue current meds. Uncontroll ed type 1 diabetes mellitus 579810138 E10.65 Continue to follow with Dr. Ortega. Mixed anxi ety and depressive disorder 742237571 F41.8 [id number] ELIZABETH HOUSER [facility] ([facility]) [address] [place] [id number] 04/01/2024 13:47:35 04/01/2024 15:21:12 Essential hypertension 10172795 I10 Monitor at home. Follow-up with cardiology . Uncontroll ed type 1 diabetes mellitus 423787347 E10.65 Continue to follow with Dr. Ortega. [facility] ion care management 967763120 Z30.9 Has a Nexplanon in her left arm, has not been changed for 12 years per patient Chronic low back pain 27 5667834 M54.50 Would like to see about prescripti on for Tramadol. 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 Congestive heart failure 87701846 I50.9 Follows with Cardiology . Chronic ob structive pulmonary disease 56632540 J44.9 Uses Breo. Secondary hyperaldosteronism 61721984 E26.1 Currently on dialysis. Angina pectoris 29075615 0 I20.9 Follows with cardiology , has nitrostat, recent stent. Amputated toe 905119405 Z89.429 Follows with podiatry. Chronic re current major depressive disorder 7201960 F33.1 Continue Lexapro. [id number] SUZANNE HEATON [facility] ([facility]) [address] [place] [id number] 05/01/2024 11:41:02 05/01/2024 13:20:39 Chronic chest pain 3928064996 27964 R07.9 Encouraged her mother to contact cardiology for follow-up. Essential hypertension 45288634 I10 Monitor at home. Restart Coreg. Abnormal vision 4008072 H54.7 [id number] SUZANNE HEATON [facility] ([facility]) [address] [place] [id number] 07/01/2024 13:56:52 07/01/2024 15:11:16 Essential hypertension 78535304 I10 Blood pressure this am was 125/80. Type 1 mainor betes mellitus 47187075 E10.[address] Ortega. Mixed anxi ety and depressive disorder 920773312 F41.8 Swelling of lower leg 44 5656457 R22.40 Hypoxemic respiratory failure 1760386916 6850378 J96.91 Uses oxygen at home as needed. 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 Depressive disorder 3548 9007 F33.1 Continue escitalopr am. 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 Congestive heart failure 78046951 I50.9 I50.30 Follows with Cardiology . Chronic ki dney disease stage 5 714269316 N18.5 Z99.2 Currently on dialysis. Amputated toe 493194534 Z89.429 Follows with podiatry. Low back pain 472215629 M54.50 Gabapentin . Hypertensi ve heart and renal disease with (congestive) heart failure 928582843 I13.2 Follows with Cardiology . Chronic ob structive pulmonary disease 96480997 J44.9 Uses Breo. Chronic ki dney disease due to type 2 diabetes mellitus [id number] 08 N18.6 Currently on dialysis. [id number] SUZANNE HEATON [facility] ([facility]) [address] [place] [address] [phone] 5 09/16/2024 09:15:48 09/16/2024 11:21:40 Coronary arteriosclerosis 48200353 I25.10 Recent stent placement. Anemia 781801227 D64.9 Acute supp urative otitis media without spontaneous rupture of ear drum 28204065 H66.001 Pain in bi lateral legs 6270609226 2870255 M79.604 M79.605 She has been taking 100mg three times daily but feels like it needs to be increased. [id number] ELIZABETH HOUSER [facility] ([facility]) [address] [place] [address] 62140-499 5 10/05/2024 10:02:53 10/05/2024 11:11:59 Coronary atherosclerosis 906948268 I25.10 She has 8 stents now. Mixed anxi ety and depressive disorder 025584679 F41.8 She has been having vivid dreams lately revolving around her brother who recently as well as her daughter who . Hospital i npatient stay within past 30 days [id number] 106 Z76.89 [id number] ELIZABETH HOUSER [facility] ([facility]) [address] [place] [address] 11467-195 5 11/27/2024 09:57:25 11/27/2024 10:57:38 Essential hypertension 61154307 I10 Blood pressure this am was 179/112 at home, in office is 150/80. Afternoon readings have been good. Type 1 mainor betes mellitus 87749011 E10.[address] Ortega. Pain in bi lateral legs 3828986562 3843294 M79.604 M79.605 Anxiety 21114668 F41.8 6554045 Unable to lay still for MRI. Will send in clonazepam to take prior to procedure. [id number] SUZANNE HEATON [facility] ([facility]) [address] [place] [address] [phone] 5 01/06/2025 11:45:44 01/06/2025 13:58:55 Chronic chest pain 9884118249 13999 R07.9 G89.29 420079 Chronic ki dney disease stage 5 001868112 N18.5 Z99.2 Currently on dialysis. Coronary arteriosclerosis 03651386 I25.10 Recent stent placement. Follow-up with cardiology next week. Will discuss chest pain with them as well. [id number] SUZANNE HEATON [facility] ([facility]) [address] [place] [address] 79543-203 5 03/03/2025 12:06:42 03/03/2025 14:00:46 Neuropathy due to diabetes mellitus 145424165 E11.40 Decrease gabapentin to 100mg three times daily. Chronic renal failure 90 511782 N18.5 48964498 Dialysis. Hyperkalemia 75182131 E8 7.5 9805 Labs checked yesterday at Dialysis. Atypical chest pain 1025 28521 R07.89 [id number] Recurrent. Following with cardiology . Recently started Isosorbide . History of abnormal cervical Papanicolaou smear 499835589 Z87.42 6882282 [id number] SUZANNE HEATON [facility] ([facility]) [address] [place] [address] 83583-985 5 03/31/2025 10:56:17 03/31/2025 12:04:26 Chronic chest pain 2326598150 91549 R07.9 G89.29 858862 Spasm 96631038 M62.838 Pain in bi lateral legs 3633506224 8177378 M79.604 M79.605 Site-speci fic infective disorders of skin 061257474 L08.9 70245 right index finger Chronic pain syndrome 37 8730324 G89.4 18770 Gabapentin . [id number] SUZANNE HEATON [facility] ([facility]) [address] [place] [address] 48259-019 5 04/14/2025 11:22:24 04/14/2025 14:24:51 Chronic chest pain 2811032656 11689 R07.9 G89.29 524685 Essential hypertension 31158712 I10 67034 Took her blood pressure medication about an hour ago. Pressure at home has been pretty good. Type 1 mainor betes mellitus 12804576 E10.[address] Ortega. Will schedule pump training with patient on a [facility]. Will have bomb squad officer set up a time where she can use an exam room here. [id number] SUZANNE HEATON [facility] ([facility]) [address] [place] [address] 05/05/2025 14:52:32 05/05/2025 16:30:15 Pain of knee region 5689296366 M25.569 Chest pain 27124759 R07. 9 258500 Recurrent. Following with cardiology . Recently started colchicine daily and it has been helpful. Chronic ki dney disease stage 5 702449493 N18.5 Z99.2 Currently on dialysis. Generalize d anxiety disorder 39806992 F41.1 61882 Unable to lay still for MRI. Will [...] [place] - [place] A - [facility] (MEDICARE) Donita Aguilar [id number] Donita Aguilar 04/25/2025 [place] [facility] Donita Aguilar [id number] Donita Aguilar 04/25/2025 2 [place] Donita Aguilar [id number] Donita Aguilar 04/25/2025 1 [place] B[place]: [facility] Donita Aguilar [id number] Donita Aguilar 12/07/2024 1 [facility] (MEDICAID REPLACEMENT - HMO) [facility] Donita Aguilar [id number] Donita Aguilar Notes Date Note Type Note Provider Name and Address Organization Details Recorded Time 5 text/htm l Angina/Chest PainReported by PatientHPIFor quality, patient reportssqueezingandsoreness. For location, patient reportsmidsternal. For severity, patient reportsmoderate. SUZANNE HEATON [address] [place] [address], [phone], [facility], [place] 01/06/2025 12:54:30 5 text/htm l DyspneaReported [...] gabapentin lowered back to 100mg. SUZANNE HEATON [address] [place] [address], [phone], [facility] 03/03/2025 13:06:19 5 text/htm l Angina/Chest PainReported by PatientIFor quality, patient reportsheaviness. For context, patient reportsat rest. For severity, patient reportsmoderate. For onset/timing, patient reportshas noted for yearsandintermittent. For alleviating factors, patient reportsnitroglycerinandrest. SUZANNE HEATON [address] [place] [address], [phone], [facility] 03/31/2025 17:08:26 5 text/htm l DyspneaReported by PatientIFor quality, patient reportssqueezing,tightness,p ressure,can't catch breath,breathlessness,inabil ity to take a deep breath, andhurts to breathe. For associated symptoms, patient reportsfever,chills,weakness ,hoarseness, anddecrease in exercise capacity. For severity, patient reportsmoderateandlimits activity. For duration, patient reportsfor 2 weeks. For onset/timing, patient reportswith exertion. For pulmonary disease history, patient reportshistory of pulmonary disease. SUZANNE HEATON [address] [place] [address], [phone], [facility], [place] 04/14/2025 14:09:54 5 text/htm l Generalized Anxiety DisorderReported by Patient Joint PainReported by PatientHPIFor quality, patient reportsdull. For location, patient reportsleft knee. For severity, patient reportsno change. For duration, patient reportspresent <1 month. For timing, patient reportsconstant. ELIZABETH HOUSER, [address], [address], [facility], [place] 05/06/2025 10:11:39 OBGyn Episode No OBEpisode recorded.
--- OUTSIDE RECORDS SUMMARY | 2025-05-23 17:14 | XMS_ITS | Encounter Summary ---
Author Organization [facility] Address [address] [place] [address] Care Team Providers Care Pan Tank Worker Name Role Phone Shravan Jones DO Primary Care Provider [phone]- [phone] Encounter Details Date Type Department Care Team (Late st Contact Info) Description 01/02/2017 Lab Requisition [facility] Laboratory Services [address] [place] [address] [place] [address] Izabela Diamond MD NO ADDRESS ON FILE Social History Tobacco Use Types Packs/Day Years Used Date Smoking Tobacco: Every Day Cigarettes Comments:pt lethargic Comments Unknown Sex and Gender Information Value Date Recorded Sex Assigned at Not on file Legal Sex Female 4:38 AM FAGOT MAKER Gender Identity Not on file Sexual Orientation [...] - 145 mmol/L 01/02/2017 6:07 AM CDT [facility] POTASSIUM 4.3 3.5 - [...] 7 - 17 mg/dL 01/02/2017 6:07 AM [facility] CREATININE 0.87 0.55 - 1.02 mg/dL 01/02/2017 6:07 AM T [facility] GLUCOSE 122(H) 74 - 106 mg/dL 01/02/2017 6:07 AM [facility] GFR [...] Res ult [facility] CLIA# [id number] [address] [place] [address] * (ABNORMAL) CBC WITH DIFFERENTIAL (01/02/2017 3:00 AM CDT) [facility] WBC 10.4 4.5 - 11.0 K/uL 01/02/2017 5:44 AM [facility] RBC 4.30 4.20 - 5.40 M/uL 01/02/2017 5:44 AM [facility] HEMOGLOBIN 10.4(L) 12.0 - 16.0 g/dL 01/02/2017 5:44 AM [facility] HEMATOCRIT 34.5(L) 36.0 - 46.0 % 01/02/2017 5:44 AM [facility] MCV 80.2(L) 84.0 - 103.0 fL 01/02/2017 5:44 AM [facility] MCH 24.2(L) 27.0 - 34.0 pg 01/02/2017 5:44 AM [facility] MCHC 30.1 30.0 - 35.0 g/dL 01/02/2017 5:44 AM [facility] RDW 17.4(H) 11.0 - 14.5 % 01/02/2017 5:44 AM [facility] RDW-STDEV 51.1 37.0 - 54.0 fL 01/02/2017 5:44 AM [facility] PLATELETS 764(H) 140 - 440 K/uL 01/02/2017 5:44 AM [facility] MPV 9.2 8.9 - 12.8 fL 01/02/2017 5:44 AM [facility] NEUTROPHILS 56 42 - 75 % 01/02/2017 5:44 AM [facility] LYMPHOCYTES 27 24 - 44 % 01/02/2017 5:44 AM [facility] MONOCYTES 8 2 - 10 % 01/02/2017 5:44 AM [facility] EOSINOPHILS 7 0 - 7 % 01/02/2017 5:44 AM [facility] BASOPHILS 1 0 - 1 % 01/02/2017 5:44 AM [facility] IMMATURE GRANULOCYTES 1 0 - 2 [...] AM CDT 01/02/2017 5:35 AM CDT us Iazbela Diamond MD HEMATOLOGY ORDERABLES Final Re sult [facility] CLIA# [id number] [address] [place] [address] documented in this encounter Visit Diagnoses Not on filedocumented in this encounter Care Teams Pan Tank Worker Relationship Specialty Start Date End Date Shravan Jones DO PCP - General Family Practice 12/04/16 documented as of this encounter
--- OUTSIDE RECORDS SUMMARY | 2025-05-23 17:14 | XMS_ITS | Encounter Summary ---
Author Organization [facility] Address [address] [place] [address] Care Team Providers Care Shield Runner Name Role Phone Shravan Jones DO Primary Care Provider Encounter Details Date Type Department Care Team (Late st Contact Info) Description 12/28/2016 Lab Requisition [facility] Laboratory Services [address] [place] [address] [place] [address] David Ortega MD [address] [place] [address] Social History Tobacco Use Types Packs/Day Years Used Date Smoking Tobacco: Every Day Cigarettes Comments:pt lethargic Comments Unknown Sex and Gender Information Value Date Recorded Sex Assigned at Not on file 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 Sex 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 Gender Identity Not on file Sexual Orientation [...] * PHOSPHORUS (12/28/2016 2:39 AM CDT) Pathologist [facility] PHOSPHORUS 3.4 2.5 - 4.9 mg/dL 12/28/2016 5:42 AM CDT [facility] Blood Collection / Unknown 12/28/2016 2:39 AM CDT 12/28/2016 5:01 AM CDT David Orteag MD CHEMISTRY ORDERABLES Final Res ult Performing Organization Address [facility] Co de Phone Number [facility] CLIA# [id number] [address] [place] [address] [phone] * MAGNESIUM LEVEL (12/28/2016 2:39 AM CDT) [facility] MAGNESIUM 1.6 1.6 - 2.6 mg/dL 12/28/2016 5:42 AM CDT [facility] Blood Collection / Unknown 12/28/2016 2:39 AM CDT 12/28/2016 5:01 AM CDT Narrative [facility] - 12/28/2016 5:42 AM CDT Due to Pulmonary Function Technician update, MG+ reference range has changed from 1.8 - 2.4 mg/dL to the new reference range of 1.6 - 2.6 mg/dL. This will have limited patient impact. David Ortega MD CHEMISTRY ORDERABLES Final Res ult Performing Organization Address [facility] Co de Phone Number [facility] CLIA# [id number] [address] [place] [address] 37717 * PROTIME-INR (12/28/2016 2:39 AM CDT) [facility] PROTIME 15.0 12.3 - 15.5 Seconds 12/28/2016 5:16 AM CDT [facility] INR 1.1 0.8 - 1.2 12/28/2016 5:16 AM CDT [facility] Blood Collection / Unknown 12/28/2016 2:39 AM CDT 12/28/2016 5:01 AM CDT [place] [facility] - 12/28/2016 5:16 AM CDT Expected [...] Ortega MD HEMATOLOGY ORDERABLES Final Re sult [facility] CLIA# [id number] [address] [place] [address] * (ABNORMAL) PTT (12/28/2016 2:39 AM CDT) PTT 39.1(H) 24.8 - 38.8 seconds 12/28/2016 5:16 AM CDT [facility] Blood Collection / Unknown 12/28/2016 2:39 AM CDT 12/28/2016 5:01 AM CDT [place] [facility] - 12/28/2016 5:16 AM CDT Therapeutic Range: Hi-level PE/DVT heparin protocol 80.1 - 95.0 sec Lo-level PE/DVT heparin protocol 70.1 - 85.0 sec Cardiac Heparin Protocol 70.1 - 100.0 sec David Ortega MD HEMATOLOGY ORDERABLES Final Re sult [facility] CLIA# [id number] [facility] [place] [address] * (ABNORMAL) CBC WITH DIFFERENTIAL (12/28/2016 2:39 AM CDT) Pathologist [facility] WBC 11.0 4.5 - 11.0 K/uL 12/28/2016 5:09 AM CDT [facility] RBC 3.80(L) 4.20 - 5.40 M/uL 12/28/2016 5:09 AM CDT [facility] HEMOGLOBIN 9.3(L) 12.0 - 16.0 g/dL 12/28/2016 5:09 AM [facility] HEMATO[facility]IT 30.6(L) 36.0 - 46.0 % 12/28/2016 5:09 AM CDT [facility] MCV 80.5(L) 84.0 - 103.0 fL 12/28/2016 5:09 AM CDT [facility] MCH 24.5(L) 27.0 - 34.0 pg 12/28/2016 5:09 AM CDT [facility] MCHC 30.4 30.0 - 35.0 g/dL 12/28/2016 5:09 AM CDT [facility] RDW 17.3(H) 11.0 - 14.5 % 12/28/2016 5:09 AM T [facility] RDW-STDEV 51.8 37.0 - 54.0 fL 12/28/2016 5:09 AM CDT [facility] PLATELETS 757(H) 140 - 440 K/uL 12/28/2016 5:09 AM CDT [facility] MPV 8.9 8.9 - 12.8 fL 12/28/2016 5:09 AM CDT [facility] NEUTROPHILS 65 42 - 75 % 12/28/2016 5:09 AM CDT [facility] LYMPHOCYTES 19(L) 24 - 44 % 12/28/2016 5:09 AM CDT [facility] MONOCYTES 10 2 - 10 % 12/28/2016 5:09 AM CDT [facility] EOSINOPHILS 5 0 - 7 % 12/28/2016 5:09 AM CDT [facility] BASOPHILS 1 0 - 1 % 12/28/2016 5:09 AM CDT [facility] IMMATURE GRANULOCYTES 1 0 - 2 % 12/28/2016 5:09 AM CDT [facility] NEUTROPHIL ABSOLUTE 7.19 2.00 - 8.00 K/uL 12/28/2016 5:09 AM CDT [facility] LYMPHOCYTE ABSOLUTE 2.04 1.20 - 4.00 K/uL 12/28/2016 5:09 AM CDT [facility] MONOCYTE ABSOLUTE 1.06(H) 0.10 - 0.60 K/uL 12/28/2016 5:09 AM CDT [facility] EOSINOPHIL ABSOLUTE 0.60 0.00 - 0.70 K/uL 12/28/2016 5:09 AM CDT [facility] BASOPHILS ABSOLUTE 0.07 0.00 - 0.20 K/uL 12/28/2016 5:09 AM CDT [facility] IMMATURE GRANULOCYTES ABSOLUTE 0.07 0.00 - 0.10 K/uL 12/28/2016 5:09 AM T [facility] Blood Collection / Unknown 12/28/2016 2:39 AM CDT 12/28/2016 5:01 AM CDT us David Ortega MD HEMATOLOGY ORDERABLES Final Re sult [facility] CLIA# [id number] [address] [place] [address] * (ABNORMAL) COMPREHENSIVE METABOLIC PANEL (12/28/2016 2:39 AM CDT) SODIUM 143 136 - 145 mmol/L 12/28/2016 5:47 AM CDT [facility] POTASSIUM 3.3(L) 3.5 - 5.1 mmol/L 12/28/2016 5:47 AM [facility] CHLORIDE 103 98 - 107 mmol/L 12/28/2016 5:47 AM [facility] CO2 29 21 - 32 mmol/L 12/28/2016 5:47 AM [facility] CALCIUM 8.9 8.4 - 10.1 mg/dL 12/28/2016 5:47 AM [facility] BUN 13 7 - 17 mg/dL 12/28/2016 5:47 AM [facility] CREATININE 0.70 0.55 - 1.02 mg/dL 12/28/2016 5:47 AM [facility] GLUCOSE 46(LL) 74 - 106 mg/dL 12/28/2016 5:47 AM [facility] TOTAL PROTEIN 8.2 6.4 - 8.2 g/dL 12/28/2016 5:47 AM [facility] ALBUMIN 1.8(L) 3.4 - 5.0 g/dL 12/28/2016 5:47 AM [facility] BILIRUBIN TOTAL 0.2 0.2 - 1.0 mg/dL 12/28/2016 5:47 AM [facility] ALKALINE PHOSPHATASE 93 25 - 100 U/L 12/28/2016 5:47 AM [facility] AST 18 15 - 37 U/L 12/28/2016 5:47 AM [facility] ALT 18 13 - 61 U/L 12/28/2016 5:47 AM [facility] GFR >60 >=60 mL/min/1.7 3 sq meter 12/28/2016 5:47 AM [facility] Comment: eGFR has [...] 3 sq meter 12/28/2016 5:47 AM CDT [facility] ANION GAP 11 4 - 30 mmol/L 12/28/2016 5:47 AM CDT [facility] Blood Collection / Unknown 12/28/2016 2:39 AM CDT 12/28/2016 5:01 AM CDT us David Ortega MD CHEMISTRY ORDERABLES Final Res ult [facility] CLIA# [id number] [address] [place] [address] documented in this encounter Visit Diagnoses Not on filedocumented in this encounter Care Teams Shield Runner Relationship Specialty Start Date End Date Shravan Jones DO PCP - General Family Practice 12/04/16 documented as of this encounter
--- OUTSIDE RECORDS SUMMARY | 2025-05-23 17:14 | XMS_ITS | Encounter Summary ---
Author Organization [facility] Address [address] [place] [address] Care Team Providers Care Bee Breeder Name Role Phone Shravan Jones DO Primary Care Provider +1- [phone] Reason for Visit * Reason Onset Date Comments Appointment Notification 11/05/2023 Encounter Details Date Type Department Care Team (Late st Contact Info) Description 11/05/2023 Telephone [facility] [address] [place] [address] Janell Beauchamp MD [address] [place] [address] Appointment Notification Social History Tobacco [...] on file Legal Sex Female 3:34 PM ROUNDHOUSE SUPERVISOR Gender Identity Not on file Sexual Orientation Not on file documented as of this encounter Miscellaneous Notes * Telephone Encounter - Patrica Barney - 11/05/2023 12:07 PM CDT Janell (Provider) MESSAGE Pt needs to cancel appt on 11/07 and would like to resched. For 11/25 as she has other appts in town that day. Please call pt to reschedule. [facility] Vegetable Picker: Patrica Barney documented in this encounter Plan of Treatment Upcoming Encounters Date Type Department Care Team (Late st Contact Info) Description 08/18/2025 11:00 AM ROUNDHOUSE SUPERVISOR Office Visit [facility] [place] [address] [facility] [address] [place] [address] Kellee Garcia, HAYDEE [address] [facility] [address] [place] [address] documented as of this encounter Visit Diagnoses Not on filedocumented in this encounter Additional Health Concerns Infection Onset Date Last Indicated Resolved Time R/O C. diff 07/06/2024 07/06/2024 07/06/2024 8:3 5 AM ROUNDHOUSE SUPERVISOR documented as of this encounter Care Teams Bee Breeder Relationship Specialty Start Date End Date Shravan Jones DO PCP - General Family Practice 12/04/16 documented as of this encounter
--- OUTSIDE RECORDS SUMMARY | 2025-05-23 17:14 | XMS_ITS | Encounter Summary ---
Author Organization [facility] Address [address] [place] [address] Care Team Providers Care Activity Coordinator Name Role Phone Shravan Jones DO Primary Care Provider [phone]- [phone] Encounter Details Date Type Department Care Team (Late st Contact Info) Description 01/07/2017 Lab Requisition [facility] Services [address] [place] [address] Izabela Diamond MD NO ADDRESS ON FILE Social History Tobacco Use Types Packs/Day Years Used Date Smoking Tobacco: Every Day Cigarettes Comments:pt lethargic Comments Unknown Sex and Gender Information Value Date Recorded Sex Assigned at Not on file 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/ZIP Co de Phone Number [facility] CLIA# [id number] [address] [place] [address] * (ABNORMAL) C-REACTIVE PROTEIN (01/07/2017 2:23 AM CDT) CRP 16.6(H) 0.0 - 2.9 mg/L 01/07/2017 5:27 AM CDT [facility] Blood 01/07/2017 2:23 AM CDT 01/07/2017 5:01 AM CDT Izabela Diamond MD CHEMISTRY ORDERABLES Final Res ult Performing Organization Address [facility] Co de Phone Number [facility] CLIA# [id number] [address] [place] [address] * (ABNORMAL) BASIC METABOLIC PANEL (01/07/2017 2:23 AM CDT) SODIUM 139 136 - 145 mmol/L 01/07/2017 5:27 AM CDT [facility] [employer] [facility] POTASSIUM 4.1 3.5 - 5.1 mmol/L 01/07/2017 5:27 AM CDT [facility] [employer] [facility] CHLORIDE 104 98 - 107 mmol/L 01/07/2017 5:27 AM CDT [facility] [employer] [facility] CO2 26 21 - 32 mmol/L 01/07/2017 5:27 AM CDT [facility] [employer] [facility] CALCIUM 9.1 8.4 - 10.1 mg/dL 01/07/2017 5:27 AM CDT [facility] [employer] [facility] BUN 14 7 - 17 mg/dL 01/07/2017 5:27 AM CDT [facility] CREATININE 0.82 0.55 - 1.02 mg/dL 01/07/2017 5:27 AM T [facility] GLUCOSE 274(H) 74 - 106 mg/dL 01/07/2017 5:27 AM T [facility] GFR >60 >=60 mL/min/1.7 3 sq meter 01/07/2017 5:27 AM T [facility] Comment: eGFR has not been validated for [...] meter 01/07/2017 5:27 AM T [facility] ANION GAP 9 4 - 30 mmol/L 01/07/2017 5:27 AM [facility] Blood 01/07/2017 2:23 AM CDT 01/07/2017 5:01 AM CDT us Izabela Diamond MD CHEMISTRY ORDERABLES Final Res ult [facility] CLIA# [id number] [address] [place] [address] * (ABNORMAL) CBC WITH DIFFERENTIAL (01/07/2017 2:23 AM CDT) WBC 9.3 4.5 - 11.0 K/uL 01/07/2017 5:27 AM CDT [facility] RBC 4.19(L) 4.20 - 5.40 M/uL 01/07/2017 5:27 AM CDT [facility] HEMOGLOBIN 10.3(L) 12.0 - 16.0 g/dL 01/07/2017 5:27 AM [facility] HEMATOCRIT 33.2(L) 36.0 - 46.0 % 01/07/2017 5:27 AM [facility] MCV 79.2(L) 84.0 - 103.0 fL 01/07/2017 5:27 AM [facility] MCH 24.6(L) 27.0 - 34.0 pg 01/07/2017 5:27 AM [facility] MCHC 31.0 30.0 - 35.0 g/dL 01/07/2017 5:27 AM [facility] RDW 17.2(H) 11.0 - 14.5 % 01/07/2017 5:27 AM [facility] RDW-STDEV 49.4 37.0 - 54.0 fL 01/07/2017 5:27 AM [facility] PLATELETS 545(H) 140 - 440 K/uL 01/07/2017 5:27 AM [facility] MPV 10.2 8.9 - 12.8 fL 01/07/2017 5:27 AM [facility] NEUTROPHILS 53 42 - 75 % 01/07/2017 5:27 AM [facility] LYMPHOCYTES 26 24 - 44 % 01/07/2017 5:27 AM [facility] MONOCYTES 9 2 - 10 % 01/07/2017 5:27 AM [facility] EOSINOPHILS 11(H) 0 - 7 % 01/07/2017 5:27 AM [facility] BASOPHILS 1 0 - 1 % 01/07/2017 5:27 AM [facility] IMMATURE GRANULOCYTES 0 0 - 2 % 01/07/2017 5:27 AM [facility] NEUTROPHIL ABSOLUTE 4.88 2.00 - 8.00 K/uL 01/07/2017 5:27 AM [facility] LYMPHOCYTE ABSOLUTE 2.45 1.20 - 4.00 K/uL 01/07/2017 5:27 AM [facility] MONOCYTE ABSOLUTE 0.79(H) 0.10 - 0.60 K/uL 01/07/2017 5:27 AM CDT [facility] EOSINOPHIL ABSOLUTE 1.01(H) 0.00 - 0.70 K/uL 01/07/2017 5:27 AM CDT [facility] BASOPHILS ABSOLUTE 0.11 0.00 - 0.20 K/uL 01/07/2017 5:27 AM CDT [facility] IMMATURE GRANULOCYTES ABSOLUTE 0.04 0.00 - 0.10 K/uL 01/07/2017 5:27 AM CDT [facility] Blood 01/07/2017 2:23 AM CDT 01/07/2017 5:01 AM CDT us Izabela Diamond MD HEMATOLOGY ORDERABLES Final Re sult [facility] CLIA# [id number] [address] [place] [address] documented in this encounter Visit Diagnoses Not on filedocumented in this encounter Care Teams Activity Coordinator Relationship Specialty Start Date End Date Shravan Jones DO PCP - General Family Practice 12/04/16 documented as of this encounter
--- OUTSIDE RECORDS SUMMARY | 2025-05-23 17:14 | XMS_ITS | Encounter Summary ---
Author Organization [facility] Address [address] [place] [address] Care Team Providers Care Lard Tub Washer Name Role Phone Shravan Jones DO Primary Care Provider [phone]- [phone] Encounter Details Date Type Department Care Team (Latest Contact Info) Description 05/14/2003 Outpatient [facility] [place] [address] Jimmy Tineo, CLIVES NO ADDRESS ON FILE UNSPEC DENTAL CARIES (Primary Dx); TOOTH POSITION ANOMALY Social History Tobacco Use Types Packs/Day Years Used Date Smoking Tobacco: Never Assessed Comments Unknown Sex and Gender Information Value Date Recorded Sex Assigned at Not on file 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
--- OUTSIDE RECORDS SUMMARY | 2025-05-23 17:14 | XMS_ITS | Encounter Summary ---
Author Organization [facility] Address [address] [place] [address] Care Team Providers Care Design Printing Machine Setter Name Role Phone Shravan Jones DO Primary Care Provider [phone]- [phone] Encounter Details Date Type Department Care Team (Late st Contact Info) Description 01/07/2017 Lab Requisition [facility] Laboratory [facility] [address] [place] [address] [place] [address] David Ortega MD [address] [place] [address] Social History Tobacco Use Types Packs/Day Years Used Date Smoking Tobacco: Every Day Cigarettes Comments:pt lethargic Comments Unknown Sex and Gender Information Value Date Recorded Sex Assigned at Not on file 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 Sex Female 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 Gender Identity Not on file Sexual [...] Detected Not Detected 01/07/2017 8:08 PM CDT [facility] E-House [facility] Stool STOOL SPECIMEN / Unknown 01/07/2017 1:54 PM CDT 01/07/2017 6:53 PM CDT Narrative [facility] - 01/07/2017 8:08 PM CDT This [...] MICROBIOLOGY - GENERAL ORDERAB LES Final Result [facility] E-House [facility] CLIA# [id number] [address] [place] [address] documented in this encounter Visit Diagnoses Not on filedocumented in this encounter Care Teams Design Printing Machine Setter Relationship Specialty Start Date End Date Shravan Jones DO PCP - General Family Practice 12/04/16 documented as of this encounter
--- OUTSIDE RECORDS SUMMARY | 2025-05-23 17:14 | XMS_ITS | Continuity of Care Document ---
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 [facility] 09/27/2024 18:18:09 09/27/19 25 echocardiography completed [facility] 10/01/2024 18:33:00 09/22/19 25 ultrasonography of right breast completed [facility] 09/21/2024 13:39:24 09/22/19 25 mammography completed [facility] L[facility].C[facility]obo 09/21/2024 13:40:36 09/11/[address] of abdomen completed [facility], DonteL.CJacobo 09/13/2024 14:56:32 09/10/19 25 angiography of coronary artery completed [facility] L[facility].C[facility]obo 09/13/2024 14:50:21 09/09/19 25 echocardiography completed [facility], DonteLJacoboCJacobo 09/13/2024 14:54:55 09/08/19 25 plain X-ray of chest completed [facility], DonteLJacoboCJacobo 09/13/2024 14:57:51 08/24/[address] of chest completed [facility] 08/24/2024 12:28:02 04/28/20 24 plain X-ray of chest completed [facility] 04/30/2024 11:08:42 03/31/20 24 plain X-ray of chest completed [facility] 04/01/2024 14:05:05 03/27/20 24 imaging guided percutaneous transluminal angioplasty of coronary artery with contrast completed [facility] 10/05/2024 10:23:19 02/28/20 24 radiographic procedure on chest and/or abdomen completed [facility] L[facility].C[facility]obo 03/04/2024 15:02:31 02/28/[address] of abdomen completed [facility] L[facility].C[facility]obo 03/04/2024 15:03:26 01/19/20 24 diagnostic radiography of abdomen completed [facility] 01/21/2024 17:26:25 01/06/20 24 plain X-ray of chest completed [facility] 01/07/2024 15:42:42 12/27/19 24 plain X-ray of chest completed [facility] L[facility]L.CJacboo 12/29/2023 23:23:06 12/27/19 24 [address] of chest, abdomen and pelvis completed [facility], LJacoboL.CJacobo 12/29/2023 23:32:58 12/24/19 24 plain X-ray of chest completed [facility], LJacoboLJacoboCJacobo 12/29/2023 23:56:29 12/20/[address] of chest completed [facility], DonteLJacoboCJacobo 12/21/2023 12:33:52 12/20/19 24 plain X-ray of chest completed [facility] 12/21/2023 12:34:44 12/09/19 24 plain X-ray of chest completed [facility] 12/12/2023 10:16:37 12/05/19 24 plain X-ray of chest completed [facility] L.LJacoboCJacobo 12/06/2023 13:24:46 11/28/19 24 cardiac catheterization completed [facility] 12/06/2023 13:11:07 11/28/19 24 imaging guided percutaneous transluminal angioplasty of coronary artery with contrast completed [facility], L.L[facility]oboC. 10/05/2024 10:22:55 11/27/19 24 plain X-ray of chest completed [facility], L.LJacoboCJacobo 11/28/2023 10:19:35 10/24/19 24 imaging guided percutaneous transluminal angioplasty of coronary artery with contrast completed [facility] L.L.C[facility]obo 10/05/2024 10:22:32 10/16/19 24 imaging guided percutaneous transluminal angioplasty of coronary artery with contrast completed [facility], LJacoboL.CJacobo 10/05/2024 10:22:12 10/07/19 24 plain X-ray of chest completed [facility], KaelynCJacobo 10/08/2023 17:52:40 09/20/19 24 echocardiography completed [facility], DonteLJacoboCJacobo 09/26/2023 12:48:56 lobectomy of lung completed XIMENAMAHI KEATING [facility], Billie 10/10/2023 12:32:47 amputation completed XIMENAMAHI KEATING [facility], DonteLJacoboCJacobo 08/24/2024 12:24:04 cholecystectomy completed [facility], DonteLJacoboCJacobo 09/13/2024 14:49:22 Imaging Results None recorded. Procedure Notes None recorded. Medical Equipment None Reported. Allergies Allergen ID Allergen Name Allergen Category Reaction Reaction Severity Criticality Documentation Date Start Date Code Code System Note Provider Name and Address Organization Details Recorded Time 02166 acetamino phen medicatio n abdominal pain moderate low 01/19/20232021 161 RxNorm GI upset /into leran ce Anh coles [facility], LJacoboL[facility]oboCJacobo 4 07:57:42 01483 acetamino phen medicatio n Not available Not available Not available 02/21/20242023 161 RxNorm ELIZABETH HOUSER, [facility] [address] [place], [address] , [facility], DonteLJacoboCJacobo 16:14:16 58946 ranolazin e medicatio n Not available Not available Not available 04/14/2025 08831 RxNorm Hallu cinat ions [facility]NA coles [facility] 11:33:58 Medications Name Sig Start Date Stop [...] her to decrease to 100mg TID followin [facility], 02/27 and 02/28 Not Available Not Available [...] times per day 10/09 completed VO CH/jl; 60270; Recorded 05/14/20 19 10:02AM by Leydi Jessica [...] Last Updated DateTime 152.4 cm 26.8 kg/m2 32992.1 5 g 97 % 72 /min 18 /min 98 [degF] 120/70 mm[Hg] BRANDON RIVERA [facility] L[facility]obo 12:37:22 Social History Question Answer Notes LastModified by Organizat ion Details LastModified Time Tobacco Smoking Status Former Smoker Quit 07/2023 XIMENA coles [facility] 12/24/2023 12:30:16 What Type Of Diet Are You Following? REGULAR [email or web address] Information not available 12/24/2023 Which Illicit Or Recreational Drugs Have You Used? Smokes Meth [email or web address] Information not available 10/10/2023 When Did You Quit Smoking? 1-5yearssin celastcigar ette Information not available 12/24/2023 What Was The Date Of Your Most Recent Tobacco Screening? 12/24/2023 Information not available 12/24/2023 What Is Your Current Pack Years? 20-29packye ars Information not available 12/24/2023 What Is Your Relationship Status? Single [email or web address] Information not available 12/24/2023 At What Age [...] or recreational drugs? Yes Quit Meth 07/2023 [email or web address] Information not available 12/24/2023 Do you or have you ever used any other forms of tobacco or nicotine? No Information not available 12/24/2023 What is your level of alcohol consumption? None [email or web address] Information not available 10/10/2023 Are you currently employed? No disabled [email or web address] Information not available 10/10/2023 Are you able to walk independently without assistance or assistive devices? YESASSIST [email or web address] Information not available 10/10/2023 Are you able [...] Time Mother Myocardial infarction In her 50's [email or web address] Not available 12/29/2023 23:44:26 Mother Rheumatoid arthritis [email or web address] Not available 12/28 23:44:44 Brother Acute lymphoid leukemia [email or web address] Not available 10/18 18:24:23 Medical History Condition [...] pneumococcal polysaccharide PPV23 8 completed SUZANNE HEATON [address] [place], [address], [facility] 12/24/2023 12:51:09 Past Encounters Encounter ID Performer Location Encounter Start Date Encounter Closed Date Diagnosis/Indication Diagnosis SNOMED-CT Code Diagnosis ICD10 Code Diagnosis IMO Codes Diagnosis Note [id number] SUZANNE HEATON [facility] [address] [place] [address] 03/03/2025 12:06:42 03/03/2025 14:00:46 Neuropathy due to diabetes mellitus 460046109 E11.40 Decrease gabapentin to 100mg three times daily. Chronic renal failure 90 846438 N18.5 66039497 Dialysis. Hyperkalemia 39452631 E8 7.5 9805 Labs checked yesterday at Dialysis. Atypical chest pain 1025 96436 R07.89 821704 Recurrent. Following with cardiology . Recently started Isosorbide . History of abnormal cervical Papanicolaou smear 597783207 Z87.42 9758303 Health Concerns Section Related Observation LastModified by Organization Detai ls LastModified Time None Recorded Concern Status LastModified by Organization Details LastModified Time None Recorded Payers Encounter Date Sequence Insurance Name Policy Number Policy Varela Covered Member ID Varela Member ID Guarantor Name 03/03/2025 1 [place] Donita Aguilar [id number] Donita Aguilar 03/03/2025 2 [place] Donita Aguilar [id number] Donita Aguilar Notes Date Note Type Note [...] lowered back to 100mg. SUZANNE HEATON [address] [place], [address], [facility] 03/03/2025 13:06:19 OBGyn Episode No OBEpisode recorded.
--- OUTSIDE RECORDS SUMMARY | 2025-05-23 17:14 | XMS_ITS | Encounter Summary ---
Author Organization [facility] Address [address] [place] [address] Care Team Providers Care Fire Tender Name Role Phone Shravan Jones DO Primary Care Provider [phone] Encounter Details Date Type Department Care Team (Late st Contact Info) Description 12/31/2016 Lab Requisition [facility] Services [address] [place] [address] David Ortega MD [address] [place] [address] Social History Tobacco Use Types Packs/Day Years Used Date Smoking Tobacco: Every Day Cigarettes Comments:pt lethargic Comments Unknown Sex and Gender Information Value Date Recorded Sex Assigned at Not on file Legal Sex Female 4:38 AM CLINICAL OB Gender Identity Not on file Sexual Orientation [...] 2:26 AM CDT 12/31/2016 5:17 AM CDT [facility] - 12/31/2016 5:52 AM CDT Due to Radio Announcer update, MG+ reference range has changed from 1.8 - 2.4 mg/dL to the new reference range of 1.6 - 2.6 mg/dL. This will have limited patient impact. us David Ortega MD CHEMISTRY ORDERABLES Final Res ult [facility] CLIA# [id number] [address] [place] [address] * (ABNORMAL) COMPREHENSIVE METABOLIC PANEL (12/31/2016 2:26 AM CDT) SODIUM 138 136 - 145 mmol/L 12/31/2016 5:52 AM CDT [facility] POTASSIUM 4.7 3.5 - 5.1 mmol/L 12/31/2016 5:52 AM [facility] CHLORIDE 102 98 - 107 mmol/L [...] ult [facility] CLIA# [id number] [address] [place] [address] * (ABNORMAL) CBC WITH DIFFERENTIAL (12/31/2016 2:26 AM CDT) WBC 13.7(H) 4.5 - 11.0 K/uL 12/31/2016 6:32 AM [facility] RBC 3.66(L) 4.20 - 5.40 M/uL 12/31/2016 6:32 AM [facility] HEMOGLOBIN 9.3(L) 12.0 - 16.0 g/dL 12/31/2016 6:32 AM [facility] [employer] [facility] HEMATOCRIT 29.6(L) 36.0 - 46.0 % 12/31/2016 6:32 AM [facility] [employer] [facility] MCV 80.9(L) 84.0 - 103.0 fL 12/31/2016 6:32 AM [facility] [employer] [facility] MCH 25.4(L) 27.0 - 34.0 pg 12/31/2016 6:32 AM [facility] MCHC 31.4 30.0 - 35.0 g/dL 12/31/2016 6:32 AM [facility] [employer] [facility] RDW 17.4(H) 11.0 - 14.5 % 12/31/2016 6:32 AM [facility] [employer] [facility] RDW-STDEV 52.1 37.0 - 54.0 fL 12/31/2016 6:32 AM [facility] [employer] [facility] PLATELETS 767(H) 140 - 440 K/uL 12/31/2016 6:32 AM [facility] [employer] [facility] MPV 9.0 8.9 - 12.8 fL 12/31/2016 6:32 AM [facility] [employer] [facility] NEUTROPHILS 68 42 - 75 % 12/31/2016 6:32 AM [facility] [employer] [facility] LYMPHOCYTES 17(L) 24 - 44 % 12/31/2016 6:32 AM [facility] [employer] [facility] MONOCYTES 8 2 - 10 % 12/31/2016 6:32 AM [facility] [employer] [facility] EOSINOPHILS 6 0 - 7 % 12/31/2016 6:32 AM [facility] [employer] [facility] BASOPHILS 0 0 - 1 % 12/31/2016 6:32 AM [facility] [employer] [facility] IMMATURE GRANULOCYTES 1 0 [...] sult [facility] CLIA# [id number] [address] [place] [address] documented in this encounter Visit Diagnoses Not on filedocumented in this encounter Care Teams Fire Tender Relationship Specialty Start Date End Date Shravan Jones DO PCP - General Family Practice 12/04/16 documented as of this encounter
--- NOTE | 2025-05-23 17:38 | XRR_ITS ---
PROCEDURE INFORMATION: Exam: XR Abdomen Exam date and time: 05/23/2025 5:52 PM Age: 39 years old Clinical indication: Abdominal pain; Acute; Prior surgery; Surgery date: 6+ months; Surgery type: Lll lobectomy cardiac stents TECHNIQUE: Imaging protocol: Radiologic exam of the abdomen. Views: 2 Views. Upright and supine views. COMPARISON: CT abdomen pelvis con [id number] 05/15/2025 11:33 PM FINDINGS: Gastrointestinal tract: Nonspecific bowel gas pattern. Colon and small bowel are not distended. No pathological air-fluid levels. Small amount of gas in the colon and small bowel. Intraperitoneal space: No free air. No organomegaly. Surgical clips seen in the gallbladder fossa with a single surgical clip of the inferior tip of the liver which may be a dropped clip. Psoas outlines are intact. Other: Lung bases are clear. History of a left lower lobe lobectomy. Cardiac stent visualized. Bones/joints: Mild right convexity thoracolumbar scoliosis. XR/XR acute abdomen series [id number] IMPRESSION: Unremarkable abdomen.
--- NOTE | 2025-05-23 18:05 | W.ED.ABDPA2 ---
HPI - Abdominal Pain General: Chief Complaint: Abdominal Pain Stated Complaint: abd pain,n/v Time Seen by Provider: 05/23/25 17:34 History of Present Illness: Patient is 39-year-old female type I DM, ESRD on HD TTS, makes a few drops of urine every morning, HLD, CAD, that presents to the emergency room due to left-sided abdominal and flank pain. Denies any change in urine output. No fevers. No history of diverticulitis. No recent colonoscopy. Patient had similar symptoms on 05/16, this improved, and she is back with the same complaints. She had a CT of her abdomen and pelvis at that time. No acute findings were noted. She denies any chest pain, shortness of breath. She was compliant to dialysis yesterday. She states she is compliant to her insulin. Admits to nausea without emesis. Admits to history of gastroparesis. Associated Symptoms: Reports diarrhea and nausea; Denies chills, fever(s) and vomiting Related Data Home Medications ?Medication ?Instructions ?Recorded ?Confirmed gabapentin 100 mg capsule 100 mg PO TID 12/27/23 05/10/25 clopidogrel 75 mg tablet 75 mg PO DAILY 04/28/24 05/10/25 escitalopram oxalate 20 mg tablet 20 mg PO DAILY anxiety 02/14/25 05/10/25 folic acid 1 mg tablet 1 mg PO DAILY 02/14/25 05/10/25 hydralazine 25 mg tablet 12.5 mg PO BID 02/14/25 05/10/25 nitroglycerin 0.4 mg sublingual See Rx Instructions .Route .COMPLEX 02/22/25 05/10/25 tablet cyclobenzaprine 10 mg tablet 10 mg PO TID PRN MUSCLE SPASM 04/22/25 05/10/25 tramadol 50 mg tablet 50 mg PO DAILY 04/22/25 05/10/25 Previous Rx's ?Medication ?Instructions ?Recorded blood-glucose sensor (Dexcom G6 #3 ea 06/12/22 Sensor device) blood-glucose transmitter (Dexcom #1 ea 06/12/22 G6 Transmitter device) blood-glucose,e commerce merchandising coordinator,cont #1 ea 06/12/22 (Dexcom G6 Clothes Drier Repairer) sevelamer carbonate 800 mg tablet 800 mg PO TID #90 tabs 09/16/23 aspirin 81 mg tablet,delayed 81 mg PO QAM 30 days #30 tabs 03/28/24 release atorvastatin 40 mg tablet 40 mg PO BEDTIME 30 days #30 tabs 03/28/24 AFO brace #1 ea 04/20/24 diabetic shoes with 3 inserts #1 ea 04/20/24 amlodipine 5 mg tablet 5 mg PO DAILY #30 tabs 09/30/24 insulin aspart U-100 100 unit/mL See Rx Instructions .Route 12/28/24 (3 mL) subcutaneous pen (Novolog .COMPLEX #15 mL FlexPen U-100 Insulin aspart) colchicine 0.6 mg tablet 0.6 mg PO DAILY #30 tabs 04/23/25 isosorbide mononitrate 60 mg 60 mg PO DAILY #30 tabs 04/23/25 tablet,extended release 24 hr metoclopramide HCl 5 mg tablet 5 mg PO Q8H PRN nausea and 05/23/25 (Reglan) vomiting #20 tabs sodium polystyrene sulfonate 15 15 g PO DAILY #150 grams 05/23/25 gram oral powder Allergies Allergy/AdvReac Type Severity Reaction Status Date / Time acetaminophen AdvReac Mild ADR-Gastrointestinal Verified 05/23/25 17:13 Upset Review of Systems General: Reports: 10 or more systems reviewed and unremarkable except in HPI and below Const: Denies: fever(s) or chills ENMT: Denies: throat pain Card: Denies: chest pain or palpitations Resp: Denies: dyspnea or non-productive cough GI: Reports: abdominal pain, nausea and diarrhea; Denies: vomiting : Reports: flank pain Musc: Denies: neck pain or back pain Neuro: Denies: headache(s) or numbness in extremities Psych: Denies: anxiety or depression PFS ED PFSH: Medical History (Updated 05/23/25 @ 19:44 by LORE Lacey) Insulin dependent diabetes mellitus with complications Chest pain Diabetes mellitus Primary hypertension HTN (hypertension), benign Hyperkalemia Headache Accelerated hypertension Uncontrolled type 1 diabetes mellitus ESRD (end stage renal disease) Dialysis complication Hypoglycemia Hemodialysis catheter dysfunction Colitis End stage renal disease on dialysis COPD (chronic obstructive pulmonary disease) Transaminitis Intractable nausea and vomiting Hyperlipidemia CHF (congestive heart failure), NYHA class III Pulmonary hypertension Coronary artery disease involving [place] heart with angina pectoris, unspecified vessel or lesion type Neurogenic bladder COVID-19 Tobacco dependence Drug abuse Anemia Community acquired pneumonia Esophagitis Long-term insulin use History of pancreatitis Celiac disease Recurrent UTI Non-alcoholic fatty liver disease Arnold-Chiari malformation Diabetic gastroparesis -continue Reglan Diabetic neuropathy associated with type 1 diabetes mellitus Headache, common migraine, intractable, with status migrainosus Pleural effusion 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 History of lung surgery -s/p LLL lobectomy secondary to cavitary pneumonia (2017) History of endoscopy History of cholecystectomy Family History Grandfather Diabetes Mother CAD (coronary artery disease) Diabetes Heart disease Hypertension Brother Acute lymphoblastic leukemia (ALL) in child Grandmother Thyroid disease Denies family history of Colon cancer Ovarian cancer Prostate cancer Hyperlipidemia Breast cancer Uterine cancer Stroke Social History Smoking and tobacco/nicotine status: former use of tobacco/nicotine Quit status (tobacco/nicotine): has quit using Former quit date comment: She previously smoked <1/2 PPD, quit July 2023. 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 [employer] Female Reproductive History: Spontaneous abortions: No Physical Exam Const: COMMON NORMALS: no acute distress, average body habitus, patient oriented x3, no limitations, healthy appearing, alert and well nourished HENMT: COMMON NORMALS: normocephalic and atraumatic HEAD & SCALP: normocephalic and atraumatic Neck/C-Spine: COMMON NORMALS: full ROM, no lymphadenopathy, supple and no meningeal signs Lymph: LYMPHATIC: no lymphadenopathy noted Chest: COMMONS NORMALS: normal inspection of the chest and normal palpation of entire chest wall Resp: COMMON NORMALS: normal respiratory effort, No retractions and No use of accessory muscles Cardio: COMMON NORMALS: regular rate and regular rhythm RATE: regular rate RHYTHM: regular rhythm GI: COMMON NORMALS: Normal to inspection, nondistended, normoactive bowel sounds present, Soft to palpation and No hepatosplenomegaly present PALPATION: Yes Soft to palpation, Yes Tenderness to palpation present (GI) Details: LLQ, RLQ, LUQ and RUQ, No Guarding due to palpation present (GI) and Yes No hepatosplenomegaly present : COMMON NORMALS: Yes no CVA tenderness BLADDER/KIDNEY EXAM: Yes no CVA tenderness Back/Pelvis: COMMON NORMALS: no CVA tenderness Extremity: COMMON NORMALS: normal to inspection, full ROM and capillary refill normal Neuro: COMMON NORMALS: patient oriented x3 SENSORIUM/ORIENTATION: Yes alert MENINGEAL SIGNS: Yes no meningeal signs Course Vital Signs: Vital signs: Vital Signs Temperature 98.3 F 05/23/25 17:10 Pulse Rate 83 05/23/25 20:13 Respiratory Rate 16 05/23/25 17:10 Blood Pressure 110/71 05/23/25 20:13 Pulse Oximetry 99 05/23/25 20:13 Oxygen Delivery Me thod Room Air 05/23/25 20:13 MDM - Abdominal Pain Medical Decision Making Patient is a 39-year-old female that reports to the emergency room with abdominal pain that started today. She has had waxing and waning symptoms and was seen here on 05/16. Medical records have been reviewed. CT of the abdomen pelvis was no acute findings at that time. Urine analysis has been difficult to obtain since patient is oligoanuric. Will obtain a catheterization, acute abdominal series for further decision making. Labs, CBC, CMP, lactic acid, lipase are pending. Patient states compliance to dialysis, and medications. Discussed with patient this appears to be more functional issues. She was improved after Reglan, Benadryl. Small amount of Reglan was sent to the pharmacy. Suspect a component of gastroparesis. Recommended she discuss with her primary care physician referral to GI or surgeon for possible EGD, and colonoscopy. Patient states understanding. Patient also acknowledges needing to call her doctor in the morning to repeat a potassium. Kayexalate sent to the pharmacy. All her questions answered satisfaction. Medical Records I reviewed the patient's medical records. Lab Data I reviewed the patient's lab results. 05/23/25 18:44 05/23/25 18:44 Labs/Radiology: Radiology Impressions Chest/Abdomen X-ray 05/23/25 17:38 IMPRESSION: Unremarkable abdomen. Laboratory Results WBC 6.91 10^3/uL (3.29-11.43) 05/23/25 18:44 RBC 3.76 10^6/uL (3.85-5.65) L 05/23/25 18:44 Hgb 11.10 g/dL (11.27-16.99) L 05/23/25 18:44 Hct 34.3 % (36-47) L 05/23/25 18:44 MCV 91.2 fl (85-98) 05/23/25 18:44 MCH 29.5 pg (27-33) 05/23/25 18:44 MCHC 32.4 g/dL (30-55) 05/23/25 18:44 RDW 14.1 % (12.1-15.1) 05/23/25 18:44 Plt Count 129 10^3/cmm (157-399) L 05/23/25 18:44 MPV 9.9 fL (7.4-10.4) 05/23/25 18:44 Neut % (Auto) 66.1 % 05/23/25 18:44 Lymph % (Auto) 22.9 % 05/23/25 18:44 [place] % (Auto) 7.4 % 05/23/25 18:44 Eos % (Auto) 2.7 % 05/23/25 18:44 Baso % (Auto) 0.6 % 05/23/25 18:44 Neut # (Auto) 4.57 10^3/uL (1.8-7.7) 05/23/25 18:44 Lymph # (Auto) 1.6 10^3/uL (0.8-4.8) 05/23/25 18:44 [place] # (Auto) 0.5 10^3/uL (0.2-0.9) 05/23/25 18:44 Eos # (Auto) 0.2 10^3/uL (0.0-0.8) 05/23/25 18:44 Baso # (Auto) 0.0 10^3/uL (0.0-0.1) 05/23/25 18:44 Nucleated RBC % (auto) 0 % 05/23/25 18:44 Nucleated RBCs # 0.0 /100WBC 05/23/25 18:44 Sodium 137 mmol/L (136-145) 05/23/25 18:44 Potassium 5.5 mmol/L (3.5-5.1) H 05/23/25 18:44 Chloride 98 mmol/L (98-107) 05/23/25 18:44 Carbon Dioxide 28 mmol/L (22-29) 05/23/25 18:44 Anion Gap 16.5 (5-19) 05/23/25 18:44 BUN 27 mg/dL (6-20) H 05/23/25 18:44 Creatinine 4.9 mg/dL (0.5-0.9) H 05/23/25 18:44 GFR Calculation 9.9 mL/min (90-130) L 05/23/25 18:44 Glucose 140 mg/dL (65-115) H 05/23/25 18:44 Calculated Osmolality 291 mOsm/kg (285-295) 05/23/25 18:44 Lactic Acid 1.4 mmol/L (0.5-2.2) 05/23/25 18:44 Calcium 9.0 mg/dL (8.5-10.5) 05/23/25 18:44 Total Bilirubin 0.4 mg/dL (0.15-1.2) 05/23/25 18:44 AST 15 U/L (0-32) 05/23/25 18:44 ALT 22 U/L (0-33) 05/23/25 18:44 Alkaline Phosphatase 204 U/L (35-105) H 05/23/25 18:44 C-Reactive Protein 3.0 mg/L (0.0-4.9) 05/23/25 18:44 Total Protein 7.2 g/dL (6.6-8.7) 05/23/25 18:44 Albumin 3.6 g/dL (3.5-5.2) 05/23/25 18:44 Globulin 3.6 g/dL (1.3-4.6) 05/23/25 18:44 Lipase 16 U/L (13-60) 05/23/25 18:44 Urine Color Yellow (Yellow) 05/23/25 19:17 Urine Appearance Clear (CLEAR) 05/23/25 19:17 Urine pH 8.0 (5-7) A 05/23/25 19:17 Ur Specific [place] 1.013 (1.005-1.030) 05/23/25 19:17 Urine Protein 3+ (Negative) A 05/23/25 19:17 Urine Glucose (UA) 1+ (Normal) H 05/23/25 19:17 Urine Ketones Negative (Negative) 05/23/25 19:17 Urine Blood 2+ (Negative) A 05/23/25 19:17 Urine Nitrate Negative (Negative) 05/23/25 19:17 Urine Bilirubin Negative (Negative) 05/23/25 19:17 Urine Urobilinogen 0.2 mg/dL (Negative) 05/23/25 19:17 Ur Leukocyte Esterase Negative (Negative) 05/23/25 19:17 Urine RBC 21-50 /hpf (0-2) H 05/23/25 19:17 Urine WBC 0-5 /hpf (0-5) 05/23/25 19:17 Ur Squamous Epith Cells 10-15 /hpf (0-5) H 05/23/25 19:17 Amorphous Sediment Not Reportable 05/23/25 19:17 Urine Bacteria None seen /hpf (NONE) 05/23/25 19:17 Hyaline Casts 9.07 /lpf 05/23/25 19:17 Urine Opiates Screen Negative ng/mL (Negative) 05/23/25 19:17 Ur Barbiturates Screen Negative ng/mL (Negative) 05/23/25 19:17 Ur Phencyclidine Scrn Negative ng/mL (Negative) 05/23/25 19:17 Ur Amphetamines Screen Negative ng/mL (Negative) 05/23/25 19:17 U Benzodiazepines Scrn Negative ng/mL (Negative) 05/23/25 19:17 Urine Cocaine Screen Negative ng/mL (Negative) 05/23/25 19:17 U Marijuana (THC) Screen Negative ng/mL (Negative) 05/23/25 19:17 All radiology interpretation(s) finalized by discharge Discharge Plan Discharge Patient Disposition: Home Clinical Impression: Hyperkalemia, Thrombocytopenia Abdominal pain Qualifiers: Abdominal location: generalized Qualified Code(s): R10.84 - Generalized abdominal pain Condition: Stable Prescriptions: New sodium polystyrene sulfonate 15 gram powder 15 g PO DAILY Qty: 150 0RF metoclopramide HCl [Reglan] 5 mg tablet 5 mg PO Q8H PRN (Reason: nausea and vomiting) Qty: 20 0RF [place] AFO brace See Rx Instructions .Route .MEDSUPPLY Qty: 1 0RF Rx Instructions: As directed to the shoe guys [place] diabetic shoes with 3 inserts See Rx Instructions .Route .MEDSUPPLY Qty: 1 0RF Rx Instructions: As directed to the shoe guys ([facility] Dexcom G6 Clothes Drier Repairer Misc See Rx Instructions .Route Qty: 1 0RF Rx Instructions: As directed [place] Dexcom G6 Sensor Device See Rx Instructions .Route Qty: 3 0RF Rx Instructions: As directed [place] Dexcom G6 Transmitter Device See Rx Instructions .Route Qty: 1 0RF Rx Instructions: As directed atorvastatin 40 mg tablet 40 mg PO BEDTIME 30 Days Qty: 30 0RF aspirin 81 mg tablet,delayed release (DR/EC) 81 mg PO QAM 30 Days Qty: 30 0RF amlodipine 5 mg Tablet 5 mg PO DAILY Qty: 30 0RF sevelamer carbonate 800 mg Tablet 800 mg PO TID Qty: 90 0RF gabapentin 100 mg Capsule 100 mg PO TID clopidogrel 75 mg tablet 75 mg PO DAILY insulin aspart U-100 [Novolog FlexPen U-100 Insulin] 100 unit/mL (3 mL) insulin pen See Rx Instructions .ROUTE .COMPLEX Qty: 15 0RF Rx Instructions: Inject 3 times daily, subcut, after meals, based on low-dose sliding scale. hydralazine 25 mg tablet 12.5 mg PO BID folic acid 1 mg tablet 1 mg PO DAILY escitalopram oxalate 20 mg tablet 20 mg PO DAILY nitroglycerin 0.4 mg tablet, sublingual See Rx Instructions .ROUTE .COMPLEX Rx Instructions: DISSOLVE ONE TABLET UNDER THE TONGUE EVERY 5 MINUTES NEEDED FOR CHEST PAIN. DO NOT EXCEED A TOTAL OF 3 DOSES IN 15 MINUTES. tramadol 50 mg tablet 50 mg PO DAILY cyclobenzaprine 10 mg tablet 10 mg PO TID PRN (Reason: MUSCLE SPASM ) colchicine 0.6 mg tablet 0.6 mg PO DAILY Qty: 30 0RF isosorbide mononitrate 60 mg tablet extended release 24 hr 60 mg PO DAILY Qty: 30 0RF Discharge Orders: Discharge ED (Routine); Ordered 05/23/25 Ordered By: Selene Flanagan Referrals: Elizabeth Dougherty FNP [Primary Care Provider, Unknown] Discharge Diet: As Directed and Diabetic Patient Instructions: Potassium Content of Foods List (ED), Hyperkalemia (ED), Abdominal Pain (ED), Patient Portal & [place] Instructions Activity Restrictions/Additional Instructions: - Repeat your labs for your potassium on Saturday. Call your primary care physician in the morning, set an alarm, and repeat this. - At the pharmacy: Kayexalate. Take daily. This will help with your potassium. -At the pharmacy: Metoclopramide/Reglan. Use sparingly. This will help with your nausea since your belly does not move well also called gastroparesis. - Follow the low potassium diet. -Take a probiotic daily - Return to ED with worsening pain, worsening nausea and vomiting, fever greater than 100.4 ?F Thank you for choosing [facility] for your healthcare needs today. You have been screened and evaluated and felt safe for discharge. Health conditions do change or evolve sometimes and as such it is important that you follow up with your Primary Doctor to be re checked, 3-5 days is a general good time frame for follow up. You are always welcome to return to the ED for re assessment if your symptoms are worsening or you have new concerns Print Language: Stateless Coding Level of Care Code ED Trashman for Reji Chandler
[2025-05-23 18:50] LABS: Hematocrit 34.3 % (36-47); Hemoglobin 11.10 g/dL (11.27-16.99); Mean Corpuscular HGB Conc 32.4 g/dL (30-55); Mean Corpuscular Hemoglobin 29.5 pg (27-33); Mean Corpuscular Volume 91.2 fl (85-98); Nucleated Red Blood Cells % 0 %; Platelet Count 129 10^3/cmm (157-399); Red Blood Count 3.76 10^6/uL (3.85-5.65); White Blood Count 6.91 10^3/uL (3.29-11.43)
[2025-05-23 19:13] LABS: Alanine Aminotransferase 22 U/L (0-33); Albumin Level 3.6 g/dL (3.5-5.2); Alkaline Phosphatase 204 U/L (35-105); Anion Gap 16.5 (5-19); Aspartate Amino Transferase 15 U/L (0-32); Blood Urea Nitrogen 27 mg/dL (6-20); Calcium 9.0 mg/dL (8.5-10.5); Carbon Dioxide 28 mmol/L (22-29); Chloride 98 mmol/L (98-107); Creatinine Clr Calc Pharmacy 12.9512; Globulin 3.6 g/dL (1.3-4.6); Glucose 140 mg/dL (65-115); Lipase 16 U/L (13-60); Osmolality Calculated 291 mOsm/kg (285-295); Potassium 5.5 mmol/L (3.5-5.1); Sodium 137 mmol/L (136-145); Total Protein 7.2 g/dL (6.6-8.7)
[2025-05-23 19:14] LABS: Lactic Sepsis W/Reflex 1.4 mmol/L (0.5-2.2)
[2025-05-23 19:27] LABS: Glucose Urine UA 1+ (Normal); Nitrate Urine Negative (Negative); Specific Gravity, Urine 1.013 (1.005-1.030)
[2025-05-23 19:33] LABS: Add Urine Microscopic? YES; Universal Test for UA Present (0)
[2025-05-23 19:36] LABS: PCP Screen Urine Negative (Negative)
[2025-05-23 20:13] VITALS: BP 110/71; PULSE 83; O2SAT 99
[2025-05-23] MEDS: metoclopramide 5 mg/mL SDV 2 mL IVP (20:47)
[2025-05-23] MEDS: diphenhydrAMINE 50 mg/mL SDV 1mL IVP (20:47)
== END 2025-05-23 22:42 | disposition home or self-care (01) ==
PROVIDERS: Emergency Provider Physician Assistant; PCP Nurse Practitioner Family
DX: E87.5 Hyperkalemia (principal); D69.6 Thrombocytopenia, unspecified; R10.84 Generalized abdominal pain; Z79.82 Long term (current) use of aspirin; Z79.02 Long term (current) use of antithrombotics/antiplatelets; Z79.4 Long term (current) use of insulin; Z87.891 Personal history of nicotine dependence; E78.5 Hyperlipidemia, unspecified; E10.22 Type 1 diabetes mellitus with diabetic chronic kidney disease; I13.2 Hypertensive heart and chronic kidney disease with heart failure and with stage 5 chronic kidney disease, or end stage renal disease; I50.9 Heart failure, unspecified; N18.6 End stage renal disease; Z99.2 Dependence on renal dialysis; J44.9 Chronic obstructive pulmonary disease, unspecified
CPT/HCPCS: 36415; 74022; 80053; 80306; 81001; 83605; 83690; 85025; 86140; 96374; 96375; 99284; J1200; J2765; J9999

== ENCOUNTER 2025-05-24 21:10 | Emergency (ER) | payer MEDICARE, MEDICAID, SELFPAY ==
--- OUTSIDE RECORDS SUMMARY | 2025-05-24 21:18 | XMS_ITS | Continuity of Care Document ---
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 completed [facility] 09/13/2024 14:50:21 09/09/19 25 echocardiography completed [facility] 09/13/2024 14:54:55 09/08/19 25 plain X-ray of chest completed [facility], DonteLJacoboCJacobo 09/13/2024 14:57:51 08/24/[address] of chest completed [facility], LJacoboL.CJacobo 08/24/2024 12:28:02 04/28/20 24 plain X-ray of chest completed [facility] 04/30/2024 11:08:42 03/31/20 24 plain X-ray of chest completed [facility] 04/01/2024 14:05:05 03/27/20 24 imaging guided percutaneous transluminal angioplasty of coronary artery with contrast completed [facility], LJacoboLJacoboCJacobo 10/05/2024 10:23:19 02/28/20 24 radiographic procedure on chest and/or abdomen completed [facility], L.L.CJacobo 03/04/2024 15:02:31 02/28/[address] of abdomen completed [facility] 03/04/2024 15:03:26 01/19/20 24 diagnostic radiography of abdomen completed [facility], L.L.CJacobo 01/21/2024 17:26:25 01/06/20 24 plain X-ray of chest completed [facility] 01/07/2024 15:42:42 12/27/19 24 plain X-ray of chest completed [facility] 12/29/2023 23:23:06 12/27/19 24 CT of chest, abdomen and pelvis completed [facility], L.L.CJacobo 12/29/2023 23:32:58 12/24/19 24 plain X-ray of chest completed [facility] 12/29/2023 23:56:29 12/20/[address] of chest completed [facility], LJacoboLJacoboC. 12/21/2023 12:33:52 12/20/19 24 plain X-ray of chest completed [facility], LJacoboL.CJacobo 12/21/2023 12:34:44 12/09/19 24 plain X-ray of chest completed [facility] 12/12/2023 10:16:37 12/05/19 24 plain X-ray of chest completed [facility] 12/06/2023 13:24:46 11/28/19 24 cardiac catheterization completed [facility] 12/06/2023 13:11:07 11/28/19 24 imaging guided percutaneous transluminal angioplasty of coronary artery with contrast completed [facility] 10/05/2024 10:22:55 11/27/19 24 plain X-ray of chest completed [facility] 11/28/2023 10:19:35 10/24/19 24 imaging guided percutaneous transluminal angioplasty of coronary artery with contrast completed [facility] 10/05/2024 10:22:32 10/16/19 24 imaging guided percutaneous transluminal angioplasty of coronary artery with contrast completed RISHABH YOUNGER [facility], L.L.CJacobo 10/05/2024 10:22:12 10/07/19 24 plain X-ray of chest completed XIMENA KEATING [facility], LJacoboL.CJacobo 10/08/2023 17:52:40 09/20/19 24 echocardiography completed XIMENAMAHI KEATING [facility], LJacoboL.CJacobo 09/26/2023 12:48:56 lobectomy of lung completed XIMENA RISHABH [facility], LJacoboL.CJacobo 10/10/2023 12:32:47 amputation completed XIMENA RISHABH [facility], L.L.CJacobo 08/24/2024 12:24:04 cholecystectomy completed [facility], LJacoboL.CJacobo 09/13/2024 14:49:22 Imaging Results None recorded. Procedure Notes None recorded. Medical Equipment None Reported. Allergies Allergen ID Allergen Name Allergen Category Reaction Reaction Severity Criticality Documentation Date Start Date Code Code System Note Provider Name and Address Organization Details Recorded Time 98044 acetamino phen medicatio n abdominal pain moderate low 01/19/20232021 161 RxNorm [facility] upset [facility] 07:57:42 24727 acetamino phen medicatio n Not available Not available Not available 02/21/20242023 161 RxNorm NAJMA HOUSER, [facility] [address] [place], [address] [place] [address], L.L[facility]C. 5 16:14:16 21504 ranolazin e medicatio n Not available Not available Not available 04/14/2025 35396 RxNorm Todd silveira [facility] 5 11:33:58 Medications Name Sig [...] wanted her to decrease to 100mg TID [email or web address] [place] and 02/28 Not Available Not Available [...] times per day 10/09 completed VO CH/jl; 45685; Recorded 05/14/20 19 10:02AM by Leydi Jessica [...] Last Updated DateTime 152.4 cm 27.7 kg/m2 19850.1 2 g 98 % 80 /min 18 /min 136/80 mm[Hg] XIMENA KEATING [facility] 15:40:44 Social History Question Answer Notes LastModified by Organizat ion Details LastModified Time Tobacco Smoking Status Former Smoker Quit 07/2023 XIMENA KEATING [facility] 12/24/2023 12:30:16 What Type Of Diet Are You Following? REGULAR [email or web address] Information not available 12/24/2023 Which Illicit Or Recreational Drugs Have You Used? Smokes Meth [email or web address] Information not available 10/10/2023 When Did You Quit Smoking? 1-5yearssin celastciwily ette Information not available 12/24/2023 What Was The Date Of Your Most Recent Tobacco Screening? 12/24/2023 Information not available 12/24/2023 What Is Your Current Pack Years? 20-29packye ars Information not available 12/24/2023 What Is Your Relationship Status? Single [email or web address] Information not available 12/24/2023 At What Age [...] or recreational drugs? Yes Quit Meth 07/2023 [email or web address] Information not available 12/24/2023 Do you or have you ever used any other forms of tobacco or nicotine? No Information not available 12/24/2023 What is your level of alcohol consumption? None [email or web address] Information not available 10/10/2023 Are you currently employed? No disabled [email or web address] Information not available 10/10/2023 Are you able to walk independently without assistance or assistive devices? YESASSIST [email or web address] Information not available 10/10/2023 Are you able to care for yourself independently? No Mother is her caregiver. [email or web address] Information not available 10/10/2023 Do you or have you ever used any nicotine-free cigarettes, vape, or chewing tobacco? No Information not available 12/24/2023 Mental Status None recorded. Family History Relationship Description Onset Age of this Age Resolved Age Notes LastModified by Organization Details LastModified Time Mother Myocardial infarction In her 50's [email or web address] Not available 12/29/2023 23:44:26 Mother Rheumatoid arthritis [email or web address] Not available 12/28 23:44:44 Brother Acute lymphoid leukemia [email or web address] Not available 10/18 18:24:23 Medical History Condition Response Diabetes Y Anxiety Disorder Y Coronary Artery Disease Y Heart Problems Y Hospitalizations Y Lung Disease Y COPD Y Depression Y High Cholesterol Y Heart Disease Y Headaches Y Hypertension Y Kidney Disease Y Gynecological HistoryNo gynecological history recorded. Obstetrics History GPAL:G 0 P 0 0 0 0 Immunizations Vaccine Type Date Status Note Provider Nam e and Address Organization Details Recorded Time pneumococcal polysaccharide PPV23 8 completed SUZANNE HEATON [address] [place] [address], [phone], [facility], LDrake 12/24/2023 12:51:09 Past Encounters Encounter ID Performer Location Encounter Start Date Encounter Closed Date Diagnosis/Indication Diagnosis SNOMED-CT Code Diagnosis ICD10 Code Diagnosis IMO Codes Diagnosis Note [id number] SUZANNE HEATON [facility] ([facility]) [address] [place] [address] 04/14/2025 11:22:24 04/14/2025 14:24:51 Chronic chest pain 4210800567 20426 R07.9 G89.29 544210 Essential hypertension 26647897 I10 96608 Took her blood pressure medication about an hour ago. Pressure at home has been pretty good. Type 1 mainor betes mellitus 19730360 E10.[address] Ortega. Will schedule pump training with patient on a MWF. Will have conservation enforcement officer set up a time where she can use an exam room here. [id number] SUZANNE HEATON [facility] ([facility]) [address] [place] [address] 05/05/2025 14:52:32 05/05/2025 16:30:15 Pain of knee region 8855290806 M25.569 Chest pain 71152849 R07. 9 821016 Recurrent. Following with cardiology . Recently started colchicine daily and it has been helpful. Chronic ki dney disease stage 5 281378851 N18.5 Z99.2 Currently on dialysis. Generalize d anxiety disorder 58417923 F41.1 74833 Unable to lay still for MRI. Will [...] 05/05/2025 1 [place] Donita Aguilar [id number] Donita Aguilar 05/05/2025 2 [place] Donita Aguilar [id number] Donita Aguilar Notes Date Note Type Note Provider Name and Address Organization Details Recorded Time 05/05/2025 text/html Generalized Anxi ety DisorderReported by Patient Joint PainReported by PatientHPIFor quality, patient reportsdull. For location, patient reportsleft knee. For severity, patient reportsno change. For duration, patient reportspresent <1 month. For timing, patient reportsconstant. SUZANNE HEATON [address] [place] [address], [id number], [facility] 05/06/2025 10:11:39 OBGyn Episode No OBEpisode recorded.
--- OUTSIDE RECORDS SUMMARY | 2025-05-24 21:18 | XMS_ITS | Continuity of Care Document ---
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 completed [facility] 03/04/2024 15:03:26 01/19/20 24 diagnostic radiography of abdomen completed [facility] L[facility].C. 01/21/2024 17:26:25 01/06/20 24 plain X-ray of chest completed [facility], LJacoboL.CJacobo 01/07/2024 15:42:42 12/27/19 24 plain X-ray of chest completed [facility] 12/29/2023 23:23:06 12/27/19 24 CT of chest, abdomen and pelvis completed [facility]obo 12/29/2023 23:32:58 12/24/19 24 plain X-ray of chest completed [facility]obo 12/29/2023 23:56:29 12/20/[address] of chest completed [facility].L.C[facility]obo 12/21/2023 12:33:52 12/20/19 24 plain X-ray of chest completed [facility], LJacoboL.CJacobo 12/21/2023 12:34:44 12/09/19 24 plain X-ray of chest completed [facility] 12/12/2023 10:16:37 12/05/19 24 plain X-ray of chest completed [facility] 12/06/2023 13:24:46 11/28/19 24 cardiac catheterization completed [facility] 12/06/2023 13:11:07 11/28/19 24 imaging guided percutaneous transluminal angioplasty of coronary artery with contrast completed [facility], L.L.CJacobo 10/05/2024 10:22:55 11/27/19 24 plain X-ray of chest completed [facility] 11/28/2023 10:19:35 10/24/19 24 imaging guided percutaneous transluminal angioplasty of coronary artery with contrast completed [facility], L.L.CJacobo 10/05/2024 10:22:32 10/16/19 24 imaging guided percutaneous transluminal angioplasty of coronary artery with contrast completed [facility], [place] 10/05/2024 10:22:12 10/07/19 24 plain X-ray of chest completed XIMENA KEATING [facility], [place] 10/08/2023 17:52:40 09/20/19 24 echocardiography completed XIMENAMAHI KEATING [facility], [place] 09/26/2023 12:48:56 lobectomy of lung completed XIMENA RISHABH [facility], [place] 10/10/2023 12:32:47 amputation completed XIMENAMAHI KEATING [facility], [place] 08/24/2024 12:24:04 cholecystectomy completed XIMENAMAHI KEATING [facility], [place] 09/13/2024 14:49:22 Imaging Results None recorded. Procedure Notes None recorded. Medical Equipment None Reported. Allergies Allergen ID Allergen Name Allergen Category Reaction Reaction Severity Criticality Documentation Date Start Date Code Code System Note Provider Name and Address Organization Details Recorded Time 62263 acetamino phen medicatio n abdominal pain moderate low 01/19/20232021 161 RxNorm GI upset /into leran ce Anh coles [facility], DonteLSanju 4 07:57:42 48629 acetamino phen medicatio n Not available Not available Not available 02/21/20242023 161 RxNorm NAJMA HOUSER, [address], [address] , [facility], LJacoboLJacoboCJacobo 5 16:14:16 65336 ranolazin e medicatio n Not available Not available Not available 04/14/2025 51585 RxNorm Hallu cinat ions [facility]obo 5 11:33:58 Medications Name Sig Start [...] wanted her to decrease to 100mg TID [facility], 02/27 and 02/28 Not [...] times per day 10/09 completed VO CH/jl; 31309; Recorded 05/14/20 19 10:02AM by Leydi Jessica [...] Updated DateTime 5 152.4 cm 27.7 kg/m2 87633.1 2 g 99 % 88 /min 18 /min 166/108 mm[Hg] 158/98 mm[Hg] XIMENA KEATING [facility] 11:38:18 Social History Question Answer Notes LastModified by Organizat ion Details LastModified Time Tobacco Smoking Status Former Smoker Quit 07/2023 XIMENA KEATING [facility] 12/24/2023 12:30:16 What Type Of Diet Are You Following? REGULAR [email or web address] Information not available 12/24/2023 Which Illicit Or Recreational Drugs Have You Used? Smokes Meth [email or web address] Information not available 10/10/2023 When Did You Quit Smoking? 1-5yearssin celastciwily ette Information not available 12/24/2023 What Was The Date Of Your Most Recent Tobacco Screening? 12/24/2023 Information not available 12/24/2023 What Is Your Current Pack Years? 20-29packye ars Information not available 12/24/2023 What Is Your Relationship Status? Single [email or web address] Information not available 12/24/2023 At What Age [...] or recreational drugs? Yes Quit Meth 07/2023 [email or web address] Information not available 12/24/2023 Do you or have you ever used any other forms of tobacco or nicotine? No Information not available 12/24/2023 What is your level of alcohol consumption? None [email or web address] Information not available 10/10/2023 Are you currently employed? No disabled [email or web address] Information not available 10/10/2023 Are you able to walk independently without assistance or assistive devices? YESASSIST [email or web address] Information not available 10/10/2023 Are you able to care for yourself independently? No Mother is her caregiver. [email or web address] Information not available 10/10/2023 Do you or have you ever used any nicotine-free cigarettes, vape, or chewing tobacco? No Information not available 12/24/2023 Mental Status None recorded. Family History Relationship Description Onset Age of this Age Resolved Age Notes LastModified by Organization Details LastModified Time Mother Myocardial infarction In her 50's [email or web address] Not available 12/29/2023 23:44:26 Mother Rheumatoid arthritis [email or web address] Not available 12/28 23:44:44 Brother Acute lymphoid [...] pneumococcal polysaccharide PPV23 8 completed SUZANNE HEATON [address] [place] [address], [address], [facility] LL[facility]obo[facility]obo 12/24/2023 12:51:09 Past Encounters Encounter ID Performer Location Encounter Start Date Encounter Closed Date Diagnosis/Indication Diagnosis SNOMED-CT Code Diagnosis ICD10 Code Diagnosis IMO Codes Diagnosis Note [id number] SUZANNE HEATON [facility] ([facility]) [address] [place] [address] 03/31/2025 10:56:17 03/31/2025 12:04:26 Chronic chest pain 6850989747 31339 R07.9 G89.29 036875 Spasm 37074431 M62.838 Pain in bi lateral legs 0721114896 8416006 M79.604 M79.605 Site-speci fic infective disorders of skin 708032342 L08.9 00182 right index finger Chronic pain syndrome 37 1525313 G89.4 73297 Gabapentin . [id number] SUZANNE HEATON [facility] ([facility]) [address] [place] [address] 04/14/2025 11:22:24 04/14/2025 14:24:51 Chronic chest pain 8094408440 90404 R07.9 G89.29 404018 Essential hypertension 63625911 I10 58334 Took her blood pressure medication about an hour ago. Pressure at home has been pretty good. Type 1 mainor betes mellitus 73271196 E10.[address] Ortega. Will schedule pump training with patient on a MWF. Will have third officer set up a time where she can use an exam room here. Health Concerns Section Related Observation LastModified by Organization Detai ls LastModified Time None Recorded Concern Status LastModified by Organization Details LastModified Time None Recorded Payers Encounter Date Sequence Insurance Name Policy Number Policy Varela Covered Member ID Varela Member ID Guarantor Name 04/14/2025 1 [place] Donita Aguilar [id number] Donita Aguilar 04/14/2025 2 [place] Donita Aguilar [id number] Donita Aguilar Notes Date Note Type Note [...] reportshistory of pulmonary disease. SUZANNE HEATON [address] [place], [address], [facility] 04/14/2025 14:09:54 OBGyn Episode No OBEpisode recorded.
--- OUTSIDE RECORDS SUMMARY | 2025-05-24 21:18 | XMS_ITS | Clinical Summary ---
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 Biological Left: Lung [employer] 09/19/2019 [id number] / / [id number] Control Implant Funmi Procedures Procedure Name Priority Date/Time Associated Diagnosis Comments HEMOGLOBIN A1C Routine 01/09/2017 2:52 AM CDT from Last 3 Months or Most Recently Relevant to Health Maintenance Results * (ABNORMAL) HEMOGLOBIN A1C (01/09/2017 2:52 AM CDT) HEMOGLOBIN A1C 8.9(H) 4.0 - 6.0 % 01/09/2017 1:31 PM CDT [facility] EST. AVG GLUCOSE, A1C 209 mg/dL 01/09/2017 1:31 PM CDT [facility] Blood 01/09/2017 2:52 AM CDT 01/09/2017 6:53 AM CDT Narrative [facility] - 01/09/2017 1:31 PM CDT Test performed on [employer] instrumentation using HPLC methodology us Izabela Diamond MD CHEMISTRY ORDERABLES Final Res ult [facility] CLIA# [id number] [address] [place] [address] from Last 3 Months or Most Recently Relevant to Health Maintenance Insurance [place], [place] [id number] [place] [address] MEDICAID Advance Directives For more information, please contact: [phone] * Full Code (Latest Code Status on File) Date Activated Date Inactivated Comments 12/17/2016 1:05 PM 12/27/2016 11:32 PM Care Teams Drop Forge Operator Relationship Specialty Start Date End Date Shravan Jones DO PCP - General Family Practice 12/04/16
--- OUTSIDE RECORDS SUMMARY | 2025-05-24 21:19 | XMS_ITS | Encounter Summary ---
Author Organization [facility] Address [address] [place] [address] Care Team Providers Care Ramp Service Employee Name Role Phone Shravan Jones DO Primary Care Provider [phone] Reason for Visit * Reason Onset Date Comments Appointment Notification 11/05/2023 Encounter Details Date Type Department Care Team (Late st Contact Info) Description 11/05/[address] [facility] [address] [place] [address] Janell Beauchamp MD [address] [place] [address] Appointment Notification Social History Tobacco Use Types Packs/Day Years Used Date Smoking Tobacco: Every Day Comments:Quit smoking: pt le thargic Social Connections Answer Date Recorded In a typical week, how many times do you talk on the telephone with family, friends, or neighbors? Never 09/22/19 24 Frequency of Social Gatherings with Friends and Family Not on file 09/22/2023 Attends [employer] Not on file 09/21 Active Member [...] on file Legal Sex Female 3:34 PM BODY JOINER Gender Identity Not on file Sexual Orientation Not on file documented as of this encounter Miscellaneous Notes * Telephone Encounter - Patrcia Barney - 11/05/2023 12:07 PM CDT Janell (Provider) MESSAGE Pt needs to cancel appt on 11/07 and would like to resched. For 11/25 as she has other appts in town that day. Please call pt to reschedule. [facility] Supply Chain Coordinator: Patrica Barney documented in this encounter Plan of Treatment Upcoming Encounters Date Type Department Care Team (Late st Contact Info) Description 08/18/2025 11:00 AM BODY JOINER Office Visit [facility] [place] [address] [facility] [address] [place] [address] Kellee Garcia, HAYDEE [address] [facility] [address] [place] [address] documented as of this encounter Visit Diagnoses Not on filedocumented in this encounter Additional Health Concerns Infection Onset Date Last Indicated Resolved Time R/O C. diff 07/06/2024 07/06/2024 07/06/2024 8:3 5 AM BODY JOINER documented as of this encounter Care Teams Ramp Service Employee Relationship Specialty Start Date End Date Shravan Jones DO PCP - General Family Practice 12/04/16 documented as of this encounter
--- OUTSIDE RECORDS SUMMARY | 2025-05-24 21:19 | XMS_ITS | Encounter Summary ---
Author Organization [facility] Address [address] [place] [address] Care Team Providers Care Warehouse Loader Name Role Phone Shravan Jones DO Primary Care Provider [phone] Encounter Details Date Type Department Care Team (Late st Contact Info) Description 12/12/2016 Nurse Only [facility] 4D Surgery Heart Lung [address] 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
--- OUTSIDE RECORDS SUMMARY | 2025-05-24 21:19 | XMS_ITS | Encounter Summary ---
Author Organization [facility] Address [address] [place] [address] Care Team Providers Care Manager Spring Name Role Phone Shravan Jones DO Primary Care Provider [phone] Encounter Details Date Type Department Care Team (Late st Contact Info) Description 01/02/2017 Lab Requisition [facility] [address] [place] [address] Izabela Diamond MD NO ADDRESS ON FILE Social History Tobacco Use Types Packs/Day Years Used Date Smoking Tobacco: Every Day Cigarettes Comments:pt lethargic Comments Unknown Sex and Gender Information Value Date Recorded Sex Assigned at Not on file 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 CREATININE 0.87 0.55 - 1.02 mg/dL 01/02/2017 6:07 AM T [facility] GLUCOSE 122(H) 74 - 106 mg/dL 01/02/2017 6:07 AM [facility] GFR >60 >=60 mL/min/1.7 3 sq meter [...] Final Res ult [facility] CLIA# [id number] [address] [place] [id number] * (ABNORMAL) CBC WITH DIFFERENTIAL (01/02/2017 3:00 AM CDT) [facility] WBC 10.4 4.5 - 11.0 K/uL 01/02/2017 5:44 AM [facility] RBC 4.30 4.20 - 5.40 M/uL 01/02/2017 5:44 AM [facility] HEMOGLOBIN 10.4(L) 12.0 - 16.0 g/dL 01/02/2017 5:44 AM [facility] HEMATOCRIT 34.5(L) 36.0 - 46.0 % 01/02/2017 5:44 AM [facility] MCV 80.2(L) 84.0 - 103.0 fL 01/02/2017 5:44 AM [facility] MCH 24.2(L) 27.0 - 34.0 pg 01/02/2017 5:44 AM [facility] MCHC 30.1 30.0 - 35.0 g/dL 01/02/2017 5:44 AM [facility] RDW 17.4(H) 11.0 - 14.5 % 01/02/2017 5:44 AM [facility] RDW-STDEV 51.1 37.0 - 54.0 fL 01/02/2017 5:44 AM [facility] PLATELETS 764(H) 140 - 440 K/uL 01/02/2017 5:44 AM [facility] MPV 9.2 8.9 - 12.8 fL 01/02/2017 5:44 AM [facility] NEUTROPHILS 56 42 - 75 % 01/02/2017 5:44 AM [facility] LYMPHOCYTES 27 24 - 44 % 01/02/2017 5:44 AM [facility] MONOCYTES 8 2 - 10 % 01/02/2017 5:44 AM [facility] EOSINOPHILS 7 0 - 7 % 01/02/2017 5:44 AM [facility] BASOPHILS 1 0 - 1 % 01/02/2017 5:44 AM [facility] IMMATURE GRANULOCYTES 1 0 - 2 % [...] Final Re sult [facility] CLIA# [id number] [address] [place] [id number] documented in this encounter Visit Diagnoses Not on filedocumented in this encounter Care Teams Manager Spring Relationship Specialty Start Date End Date Shravan Jones DO PCP - General Family Practice 12/04/16 documented as of this encounter
--- OUTSIDE RECORDS SUMMARY | 2025-05-24 21:19 | XMS_ITS | Continuity of Care Document ---
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 2023 ELIZABETH HOUSER [facility] [address] [place], [address], [facility], [facility] 5 16:14:26 Esophagi tis 12080945 Active 2024 XIMENA RISHABH sharyn [facility], [facility] 5 18:23:17 Chronic pain 57546609 Active 2024 Davian Ren MD [address] [place], [address], [facility], [facility] 5 09:12:38 Generali zed anxiety disorder 23094753 Active 2024 ELIZABETH HOUSER [address], [address], [facility], [facility] 5 16:12:14 Notes:Some problems listed i n Documents: #[id number], #[id number], #[id number], #[id number] could not be added to this patient's chart. Please review these documents and add these problems to the patient's chart manually as needed. Problem Notes None recorded. Procedures Surgical History Date Name Laterality Status Provider Name and Address Organization Details Recorded Time 04/28/20 25 plain X-ray of left knee region completed XIMENA KEATING [facility], [facility] 05/05/2025 15:02:31 04/22/20 25 plain X-ray of chest completed XIMENA KEATING [facility], DonteLJacoboC. 04/26/2025 19:04:48 04/07/20 25 plain X-ray of chest completed XIMENA KEATING [facility], LJacoboL.C. 04/08/2025 12:01:33 03/28/20 25 plain X-ray of chest completed [facility], [facility] 03/31/2025 11:10:09 03/21/20 25 plain X-ray of chest completed [facility], [facility] 03/31/2025 11:07:12 03/04/20 25 plain X-ray of chest completed [facility], [facility] 03/31/2025 11:09:47 12/27/[address] of chest completed [facility], L.L.CJacobo 12/27/2024 14:20:38 12/26/19 25 plain X-ray of chest completed [facility], LJacoboL.CJacobo 12/27/2024 14:13:55 11/11/19 25 plain X-ray of cervical spine completed [facility], LJacoboL.CJacobo 11/11/2024 12:44:02 10/01/19 25 angiography completed [facility], L.L.CJacobo 10/01/2024 18:38:18 09/27/19 25 plain X-ray of chest completed [facility], LJacoboL.C. 09/27/2024 18:18:09 09/27/19 25 echocardiography completed [facility], [facility] 10/01/2024 18:33:00 09/22/19 25 ultrasonography of right breast completed [facility], L.L.CJacobo 09/21/2024 13:39:24 09/22/19 25 mammography completed [facility], L.L.CJacobo 09/21/2024 13:40:36 09/11/[address] of abdomen completed [facility], LJacoboL.CJacobo 09/13/2024 14:56:32 09/10/19 25 angiography of coronary artery completed [facility], LJacoboL.C. 09/13/2024 14:50:21 09/09/19 25 echocardiography completed [facility], L.L.CJacobo 09/13/2024 14:54:55 09/08/19 25 plain X-ray of chest completed [facility], LJacoboLJacoboCJacobo 09/13/2024 14:57:51 08/24/[address] of chest completed [facility], DonteLJacoboCJacobo 08/24/2024 12:28:02 04/28/20 24 plain X-ray of chest completed [facility], LJacoboLJacoboCJacobo 04/30/2024 11:08:42 03/31/20 24 plain X-ray of chest completed [facility], LJacoboLJacoboCJacobo 04/01/2024 14:05:05 03/27/20 24 imaging guided percutaneous transluminal angioplasty of coronary artery with contrast completed [facility], LJacoboLJacoboCJacobo 10/05/2024 10:23:19 02/28/20 24 radiographic procedure on chest and/or abdomen completed [facility], LJacoboLJacoboCJacobo 03/04/2024 15:02:31 02/28/[address] of abdomen completed [facility], LJacoboL.CJacobo 03/04/2024 15:03:26 01/19/20 24 diagnostic radiography of abdomen completed [facility], LJacoboLJacoboCJacobo 01/21/2024 17:26:25 01/06/20 24 plain X-ray of chest completed [facility], LJacoboLJacoboCJacobo 01/07/2024 15:42:42 12/27/19 24 plain X-ray of chest completed [facility], LJacoboL.CJacobo 12/29/2023 23:23:06 12/27/19 [address] of chest, abdomen and pelvis completed [facility], LJacoboLJacoboCJacobo 12/29/2023 23:32:58 12/24/19 24 plain X-ray of chest completed [facility], Billie 12/29/2023 23:56:29 12/20/[address] of chest completed [facility], Billie 12/21/2023 12:33:52 12/20/19 24 plain X-ray of chest completed [facility], Billie 12/21/2023 12:34:44 12/09/19 24 plain X-ray of chest completed [facility], Billie 12/12/2023 10:16:37 12/05/19 24 plain X-ray of chest completed [facility], Billie 12/06/2023 13:24:46 11/28/19 24 cardiac catheterization completed [facility], Billie 12/06/2023 13:11:07 11/28/19 24 imaging guided percutaneous transluminal angioplasty of coronary artery with contrast completed [facility], DonteLJacoboCJacobo 10/05/2024 10:22:55 11/27/19 24 plain X-ray of chest completed [facility], KaelynCJacobo 11/28/2023 10:19:35 10/24/19 24 imaging guided percutaneous transluminal angioplasty of coronary artery with contrast completed [facility], L.LJacoboCJacobo 10/05/2024 10:22:32 10/16/19 24 imaging guided percutaneous transluminal angioplasty of coronary artery with contrast completed [facility], LJacoboLJacoboCJacobo 10/05/2024 10:22:12 10/07/19 24 plain X-ray of chest completed [facility], Billie 10/08/2023 17:52:40 09/20/19 24 echocardiography [facility] 09/26/2023 12:48:56 lobectomy of lung completed XIMENA RISHABH [facility], Billie 10/10/2023 12:32:47 amputation completed XIMENA RISHABH [facility], Billie 08/24/2024 12:24:04 cholecystectomy completed XIMENA RISHABH [facility], Billie 09/13/2024 14:49:22 Imaging Results None recorded. Procedure Notes None recorded. Medical Equipment None Reported. Allergies Allergen ID Allergen Name Allergen Category Reaction Reaction Severity Criticality Documentation Date Start Date Code Code System Note Provider Name and Address Organization Details Recorded Time 62896 acetamino phen medicatio n abdominal pain moderate low 01/19/20232021 161 RxNorm GI upset /into leran ce Anh coles [facility], Billie 4 07:57:42 72423 acetamino phen medicatio n Not available Not available Not available 02/21/20242023 161 RxNorm ELIZABETH HOUSER, [address], [address], [facility], Billie 5 16:14:16 31154 ranolazin e medicatio n Not available Not available Not available 04/14/2025 10227 RxNorm Hallu cinat ions XIMENA RISHABH coles [facility], DonteLJacoboCJacobo 5 11:33:58 Medications Name Sig Start [...] to decrease to 100mg TID followin g [facility], 02/27 and 02/28 Not Available [...] times per day 10/09 completed VO CH/jl; 18340; Recorded 05/14/20 19 10:02AM by Leydi Jessica [...] Last Updated DateTime 152.4 cm 27.7 kg/m2 32118.1 2 g 98 % 78 /min 18 /min 158/82 mm[Hg] XIMENA RISHABH [facility], [facility] 11:21:53 Social History Question Answer Notes LastModified by [employer] Details LastModified Time Tobacco Smoking Status Former Smoker Quit 07/2023 XIMENA RISHABH coles [facility], [facility] 12/24/2023 12:30:16 What Type Of Diet Are You Following? REGULAR [email or web address] Information not available 12/24/2023 Which Illicit Or Recreational Drugs Have You Used? Smokes Meth [email or web address] Information not available 10/10/2023 When Did You Quit Smoking? 1-5yearssin celastcigar ette Information not available 12/24/2023 What Was The Date Of Your Most Recent Tobacco Screening? 12/24/2023 Information not available 12/24/2023 What Is Your Current Pack Years? 20-29packye ars Information not available 12/24/2023 What Is Your Relationship Status? Single [email or web address] Information not available 12/24/2023 At What Age Did You Start Smoking Tobacco? 19 Information not available 12/24/2023 How Much Tobacco Do You Smoke? No Information not available 12/24/2023 How Many Years Have You Smoked Tobacco? 20 Information not available 12/24/2023 Sex: Unknown Functional Status Question Answer Note LastModified by [employer] Details LastModified Time Do you use any illicit or recreational drugs? Yes Quit Meth 07/2023 [email or web address] Information not available 12/24/2023 Do you or have you ever used any other forms of tobacco or nicotine? No Information not available 12/24/2023 What is your level of alcohol consumption? None [email or web address] Information not available 10/10/2023 Are you currently employed? No disabled [email or web address] Information not available 10/10/2023 Are you able to walk independently without assistance or assistive devices? YESASSIST Information not available 10/10/2023 Are you able to care for yourself independently? No Mother is her caregiver. [email or web address] Information not available 10/10/2023 Do you or have you ever used any nicotine-free cigarettes, vape, or chewing tobacco? No Information not available 12/24/2023 Mental Status None recorded. Family History Relationship Description Onset Age of this Age Resolved Age Notes LastModified by Organization Details LastModified Time Mother Myocardial infarction In her 50's [email or web address] Not available 12/29/2023 23:44:26 Mother Rheumatoid arthritis [email or web address] Not available 12/28 23:44:44 Brother Acute lymphoid leukemia [email or web address] Not available 10/18 18:24:23 Medical History Condition [...] pneumococcal polysaccharide PPV23 8 completed SUZANNE HEATON [address] [place] [address], [address], [facility] 12/24/2023 12:51:09 Past Encounters Encounter ID Performer Location Encounter Start Date Encounter Closed Date Diagnosis/Indication Diagnosis SNOMED-CT Code Diagnosis ICD10 Code Diagnosis IMO Codes Diagnosis Note [id number] SUZANNE HEATON [facility] ([facility]) [address] [place] [address] 03/03/2025 12:06:42 03/03/2025 14:00:46 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 Chronic renal failure 90 484117 N18.5 48396585 Dialysis. Hyperkalemia 98736600 E8 7.5 9805 Labs checked yesterday at Dialysis. Atypical chest pain 1025 29932 R07.89 [id number] Recurrent. Following with cardiology . Recently started Isosorbide . History of abnormal cervical Papanicolaou smear 106940455 Z87.42 [id number] SUZANNE HEATON [facility] ([facility]) [address] [place] [address] 03/31/2025 10:56:17 03/31/2025 12:04:26 Chronic chest pain 9273634456 57576 R07.9 G89.29 401737 Spasm 57357059 M62.838 Pain in bi lateral legs 2209363159 6491431 M79.604 M79.605 Site-speci fic infective disorders of skin 800835374 L08.9 90490 right index finger Chronic pain syndrome 37 1458070 G89.4 96112 Gabapentin . Health Concerns Section Related Observation LastModified by Organization Detai ls LastModified Time None Recorded Concern Status LastModified by Organization Details LastModified Time None Recorded Payers Encounter Date Sequence Insurance Name Policy Number Policy Varela Covered Member ID Varela Member ID Guarantor Name 03/31/2025 1 [place] Donita Aguilar [id number] Donita Aguilar 03/31/2025 2 [place] Donita Aguilar [id number] Donita Aguilar Notes Date Note Type Note Provider Name and Address Organization Details Recorded Time 5 text/html Angina/Chest PainReported by PatientHPIFor quality, patient reportsheaviness. For context, patient reportsat rest. For severity, patient reportsmoderate. For onset/timing, patient reportshas noted for yearsandintermittent. For alleviating factors, patient reportsnitroglycerinandre st. SUZANNE HEATON [address] [place], [address], [facility] 03/31/2025 17:08:26 OBGyn Episode No OBEpisode recorded.
--- OUTSIDE RECORDS SUMMARY | 2025-05-24 21:19 | XMS_ITS | Encounter Summary ---
Author Organization [facility] Address [address] [place] [address] Care Team Providers Care Public Works Laborer Name Role Phone Shravan Jones DO Primary Care Provider [phone]- [phone] Encounter Details Date Type Department Care Team (Late st Contact Info) Description 01/07/2017 Lab Requisition [facility] [address] [place] [address] David Ortega MD [address] [place] [address] Social History Tobacco Use Types Packs/Day Years Used Date Smoking Tobacco: Every Day Cigarettes Comments:pt lethargic Comments Unknown Sex and Gender Information Value Date Recorded Sex Assigned at Not on file 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
--- OUTSIDE RECORDS SUMMARY | 2025-05-24 21:19 | XMS_ITS | Encounter Summary ---
Author Organization [facility] Address [address] [place] [address] Care Team Providers Care Certified Alcohol Counselor Name Role Phone Shravan Jones DO Primary Care Provider [phone]- [phone] Encounter Details Date Type Department Care Team (Late st Contact Info) Description 01/07/2017 Lab Requisition [facility] [address] [place] [address] David Ortega MD [address] [place] [address] Social History Tobacco Use Types Packs/Day Years Used Date Smoking Tobacco: Every Day Cigarettes Comments:pt lethargic Comments Unknown Sex and Gender Information Value Date Recorded Sex Assigned at Not on file 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 Sex 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 Gender Identity Not on file Sexual [...] Detected Not Detected 01/07/2017 8:08 PM CDT [facility] [employer] [facility] Stool STOOL SPECIMEN / Unknown 01/07/2017 1:54 PM CDT 01/07/2017 6:53 PM CDT Narrative [facility] - 01/07/2017 8:08 PM CDT [...] MICROBIOLOGY - GENERAL ORDERAB LES Final Result [facility] [employer] [facility] CLIA# [id number] [address] [place] [address] documented in this encounter Visit Diagnoses Not on filedocumented in this encounter Care Teams Certified Alcohol Counselor Relationship Specialty Start Date End Date Shravan Jones DO PCP - General Family Practice 12/04/16 documented as of this encounter
--- OUTSIDE RECORDS SUMMARY | 2025-05-24 21:19 | XMS_ITS | Encounter Summary ---
Author Organization [facility] Address [address] [place] [address] Care Team Providers Care Engineering Leader Name Role Phone Shravan Jones DO Primary Care Provider [phone] Encounter Details Date Type Department Care Team (Late st Contact Info) Description 01/07/2017 Lab Requisition [facility] Laboratory Services [address] [place] [address] Izabela Diamond MD NO ADDRESS ON FILE Social History Tobacco Use Types Packs/Day Years Used Date Smoking Tobacco: Every Day Cigarettes Comments:pt lethargic Comments Unknown Sex and Gender Information Value Date Recorded Sex Assigned at Not on file 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 Gender Identity Not on file Sexual [...] AM CDT [facility] Blood 01/07/2017 2:23 AM CDT 01/07/2017 5:01 AM CDT Izabela Diamond MD CHEMISTRY ORDERABLES Final Res ult Performing Organization Address City/[facility]/ZIP Co de Phone Number [facility] CLIA# [id number] [address] [place] [phone] * (ABNORMAL) C-REACTIVE PROTEIN (01/07/2017 2:23 AM CDT) CRP 16.6(H) 0.0 - 2.9 mg/L 01/07/2017 5:27 AM CDT [facility] Blood 01/07/2017 2:23 AM CDT 01/07/2017 5:01 AM CDT Izabela Diamond MD CHEMISTRY ORDERABLES Final Res ult Performing Organization Address [facility] Co de Phone Number [facility] CLIA# [id number] [address] [place] [address] * (ABNORMAL) BASIC METABOLIC PANEL (01/07/2017 2:23 AM CDT) SODIUM 139 136 - 145 mmol/L 01/07/2017 5:27 AM CDT [facility] [employer] [facility] POTASSIUM 4.1 3.5 - 5.1 mmol/L 01/07/2017 5:27 AM CDT [facility] [employer] [facility] CHLORIDE 104 98 - 107 mmol/L 01/07/2017 5:27 AM CDT [facility] [employer] [facility] CO2 26 21 - 32 mmol/L 01/07/2017 5:27 AM CDT [facility] [employer] [facility] CALCIUM 9.1 8.4 - 10.1 mg/dL 01/07/2017 5:27 AM CDT [facility] [employer] [facility] BUN 14 7 - 17 mg/dL 01/07/2017 5:27 AM CDT [facility] CREATININE 0.82 0.55 - 1.02 mg/dL 01/07/2017 5:27 AM T [facility] GLUCOSE 274(H) 74 - 106 mg/dL 01/07/2017 5:27 AM T [facility] GFR >60 >=60 mL/min/1.7 3 sq meter 01/07/2017 5:27 AM T [facility] Comment: eGFR [...] sq meter 01/07/2017 5:27 AM T [facility] ANION GAP 9 4 - 30 mmol/L 01/07/2017 5:27 AM [facility] Blood 01/07/2017 2:23 AM CDT 01/07/2017 5:01 AM CDT us Izabela Diamond MD CHEMISTRY ORDERABLES Final Res ult [facility] CLIA# [id number] [address] [place] [address] * (ABNORMAL) CBC WITH DIFFERENTIAL (01/07/2017 2:23 AM CDT) WBC 9.3 4.5 - 11.0 K/uL 01/07/2017 5:27 AM CDT [facility] RBC 4.19(L) 4.20 - 5.40 M/uL 01/07/2017 5:27 AM CDT [facility] HEMOGLOBIN 10.3(L) 12.0 - 16.0 g/dL 01/07/2017 5:27 AM [facility] HEMATOCRIT 33.2(L) 36.0 - 46.0 % 01/07/2017 5:27 AM [facility] MCV 79.2(L) 84.0 - 103.0 fL 01/07/2017 5:27 AM [facility] MCH 24.6(L) 27.0 - 34.0 pg 01/07/2017 5:27 AM [facility] MCHC 31.0 30.0 - 35.0 g/dL 01/07/2017 5:27 AM [facility] RDW 17.2(H) 11.0 - 14.5 % 01/07/2017 5:27 AM [facility] RDW-STDEV 49.4 37.0 - 54.0 fL 01/07/2017 5:27 AM [facility] PLATELETS 545(H) 140 - 440 K/uL 01/07/2017 5:27 AM [facility] MPV 10.2 8.9 - 12.8 fL 01/07/2017 5:27 AM [facility] NEUTROPHILS 53 42 - 75 % 01/07/2017 5:27 AM [facility] LYMPHOCYTES 26 24 - 44 % 01/07/2017 5:27 AM [facility] MONOCYTES 9 2 - 10 % 01/07/2017 5:27 AM [facility] EOSINOPHILS 11(H) 0 - 7 % 01/07/2017 5:27 AM [facility] BASOPHILS 1 0 - 1 % 01/07/2017 5:27 AM [facility] IMMATURE GRANULOCYTES 0 0 - 2 % 01/07/2017 5:27 AM [facility] NEUTROPHIL ABSOLUTE 4.88 2.00 - 8.00 K/uL 01/07/2017 5:27 AM [facility] LYMPHOCYTE ABSOLUTE 2.45 1.20 - 4.00 K/uL 01/07/2017 5:27 AM [facility] MONOCYTE ABSOLUTE 0.79(H) 0.10 - 0.60 K/uL 01/07/2017 5:27 AM CDT [facility] EOSINOPHIL ABSOLUTE 1.01(H) 0.00 - 0.70 K/uL 01/07/2017 5:27 AM CDT [facility] BASOPHILS ABSOLUTE 0.11 0.00 - 0.20 K/uL 01/07/2017 5:27 AM CDT [facility] IMMATURE GRANULOCYTES ABSOLUTE 0.04 0.00 - 0.10 K/uL 01/07/2017 5:27 AM CDT [facility] Blood 01/07/2017 2:23 AM CDT 01/07/2017 5:01 AM CDT us Izabela Diamond MD HEMATOLOGY ORDERABLES Final Re sult [facility] CLIA# [id number] [address] [place] [address] documented in this encounter Visit Diagnoses Not on filedocumented in this encounter Care Teams Engineering Leader Relationship Specialty Start Date End Date Shravan Jones DO PCP - General Family Practice 12/04/16 documented as of this encounter
--- OUTSIDE RECORDS SUMMARY | 2025-05-24 21:19 | XMS_ITS | Encounter Summary ---
Author Organization [facility] Address [address] [place] [address] Care Team Providers Care Equipment Or Machinery Cleaner Name Role Phone Shravan Jones DO Primary Care Provider [phone] Encounter Details Date Type Department Care Team (Latest Contact Info) Description 05/14/2003 Outpatient [facility] Oral and Maxillo Surgery[address] [place] [address] Jimmy Tineo, CLIVES NO ADDRESS ON FILE UNSPEC DENTAL CARIES (Primary Dx); TOOTH POSITION ANOMALY Social History Tobacco Use Types Packs/Day Years Used Date Smoking Tobacco: Never Assessed Comments Unknown Sex and Gender Information Value Date Recorded Sex Assigned at Not on file 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
--- OUTSIDE RECORDS SUMMARY | 2025-05-24 21:19 | XMS_ITS | Data Portability ---
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 [facility] 4 23:45:54 End stage renal failure on dialysis 178068082 Active 2023 ELIZABETH HOUSER, [facility] [address] [place], [address], [facility] 5 16:14:26 Esophagi tis 31427668 Active 2024 XIMENA coles [facility] 5 18:23:17 Chronic pain 90206084 Active 2024 Davian Ren MD [address] [place], [address], [facility], LJacoboLJacoboCJacobo 09:12:38 Generali zed anxiety disorder 39337633 Active 2024 ELIZABETH HOUSER, [facility] [address] [place], [address], [facility], Billie 16:12:14 Notes:Some problems listed i n Documents: #[id number], #[id number], #[id number], #[id number] could not be added to this patient's chart. Please review these documents and add these problems to the patient's chart manually as needed. Problem Notes None recorded. Procedures Surgical History Date Name Laterality Status Provider Name and Address Organization Details Recorded Time 04/28/20 25 plain X-ray of left knee region completed [facility], [place] 05/05/2025 15:02:31 04/22/20 25 plain X-ray of chest completed [facility], KaelynCJacobo 04/26/2025 19:04:48 04/07/20 25 plain X-ray of chest completed [facility], Billie 04/08/2025 12:01:33 03/28/20 25 plain X-ray of chest completed [facility], Billie 03/31/2025 11:10:09 03/21/20 25 plain X-ray of chest completed [facility], LJacoboLJacoboCJacobo 03/31/2025 11:07:12 03/04/20 25 plain X-ray of chest completed [facility], KaelynCJacobo 03/31/2025 11:09:47 12/27/[address] of chest completed [facility], KaelynCJacobo 12/27/2024 14:20:38 12/26/19 25 plain X-ray of chest completed [facility] 12/27/2024 14:13:55 11/11/19 25 plain X-ray of cervical spine completed [facility] 11/11/2024 12:44:02 10/01/19 25 angiography completed [facility] 10/01/2024 18:38:18 09/27/19 25 plain X-ray of chest completed [facility] 09/27/2024 18:18:09 09/27/19 25 echocardiography completed [facility] 10/01/2024 18:33:00 09/22/19 25 ultrasonography of right breast completed [facility] 09/21/2024 13:39:24 09/22/19 25 mammography completed [facility] 09/21/2024 13:40:36 09/11/[address] of abdomen completed [facility] 09/13/2024 14:56:32 09/10/19 25 angiography of coronary artery completed [facility] 09/13/2024 14:50:21 09/09/19 25 echocardiography completed [facility] 09/13/2024 14:54:55 09/08/19 25 plain X-ray of chest completed [facility] 09/13/2024 14:57:51 08/24/[address] of chest completed [facility] 08/24/2024 12:28:02 04/28/20 24 plain X-ray of chest completed [facility] 04/30/2024 11:08:42 03/31/20 24 plain X-ray of chest completed [facility] 04/01/2024 14:05:05 03/27/20 24 imaging guided percutaneous transluminal angioplasty of coronary artery with contrast completed [facility], LJacoboLJacoboCJacobo 10/05/2024 10:23:19 02/28/20 24 radiographic procedure on chest and/or abdomen completed [facility], LJacoboL.C. 03/04/2024 15:02:31 02/28/[address] of abdomen completed [facility], LJacoboL.CJacobo 03/04/2024 15:03:26 01/19/20 24 diagnostic radiography of abdomen completed [facility], LJacoboL.C. 01/21/2024 17:26:25 01/06/20 24 plain X-ray of chest completed [facility], LJacoboLJacoboCJacobo 01/07/2024 15:42:42 12/27/19 24 plain X-ray of chest completed [facility] 12/29/2023 23:23:06 12/27/19 24 CT of chest, abdomen and pelvis completed [facility] 12/29/2023 23:32:58 12/24/19 24 plain X-ray of chest completed [facility], LJacoboL.C. 12/29/2023 23:56:29 12/20/[address] of chest completed [facility] 12/21/2023 12:33:52 12/20/19 24 plain X-ray of chest completed [facility], LJacoboL.C. 12/21/2023 12:34:44 12/09/19 24 plain X-ray of chest completed [facility], LJacoboLJacoboCJacobo 12/12/2023 10:16:37 12/05/19 24 plain X-ray of chest completed [facility] 12/06/2023 13:24:46 11/28/19 24 cardiac catheterization completed [facility] 12/06/2023 13:11:07 11/28/19 24 imaging guided percutaneous transluminal angioplasty of coronary artery with contrast completed [facility], L.L.CJacobo 10/05/2024 10:22:55 11/27/19 24 plain X-ray of chest completed [facility], L.L.CJacobo 11/28/2023 10:19:35 10/24/19 24 imaging guided percutaneous transluminal angioplasty of coronary artery with contrast completed [facility], L.L.CJacobo 10/05/2024 10:22:32 10/16/19 24 imaging guided percutaneous transluminal angioplasty of coronary artery with contrast completed [facility], L.L.CJacobo 10/05/2024 10:22:12 10/07/19 24 plain X-ray of chest completed [facility], L.L.CJacobo 10/08/2023 17:52:40 09/20/19 24 echocardiography completed [facility] 09/26/2023 12:48:56 lobectomy of lung completed [facility] 10/10/2023 12:32:47 amputation completed [facility] 08/24/2024 12:24:04 cholecystectomy completed [facility], L.L.CJacobo 09/13/2024 14:49:22 Imaging Results None recorded. Procedure Notes None recorded. Medical Equipment None Reported. Allergies Allergen ID Allergen Name Allergen Category Reaction Reaction Severity Criticality Documentation Date Start Date Code Code System Note Provider Name and Address Organization Details Recorded Time 05785 acetamino phen medicatio n abdominal pain moderate low 01/19/20232021 161 RxNorm GI upset /into leran ce Anh coles, [facility] 4 07:57:42 88268 acetamino phen medicatio n Not available Not available Not available 02/21/20242023 161 RxNorm ELIZABETH HOUSER, [facility] [address] [place], [address] , [facility] 5 16:14:16 35292 ranolazin e medicatio n Not available Not available Not available 04/14/2025 36351 RxNorm Hallu cinat ions XIMENA RISHABH coles, [facility] 5 11:33:58 Medications Name [...] wanted her [facility] and 02/28 Not Available Not [...] times per day 10/09 completed VO CH/jl; 98630; Recorded 05/14/20 19 10:02AM by Leydi Jessica [...] Updated DateTime 5 152.4 cm 26.6 kg/m2 71541.5 6 g 95 % 76 /min 20 /min 138/82 mm[Hg] XIMENA KEATING [facility] 5 12:04:30 Date Recorded Body height Body mass index (BMI) Body weight Oxygen saturation Heart rate Respiratory rate Body temperature Systolic And Diastolic Provider Name and Address Organization Details Last Updated DateTime 5 152.4 cm 26.8 kg/m2 96812.1 5 g 97 % 72 /min 18 /min 98 [degF] 120/70 mm[Hg] BRANDON RIVERA [facility] 5 12:37:22 Date Recorded Body height Body mass index (BMI) Body weight Oxygen saturation Heart rate Respiratory rate Systolic And Diastolic Provider Name and Address Organization Details Last Updated DateTime 5 152.4 cm 27.7 kg/m2 35572.1 2 g 98 % 78 /min 18 /min 158/82 mm[Hg] XIMENA RISHABH [facility], L.L.CJacobo 5 11:21:53 Date Recorded Body height Body mass index (BMI) Body weight Oxygen saturation Heart rate Respiratory rate Systolic And Diastolic Systolic And Diastolic Provider Name and Address Organization Details Last Updated DateTime 5 152.4 cm 27.7 kg/m2 05927.1 2 g 99 % 88 /min 18 /min 166/108 mm[Hg] 158/98 mm[Hg] XIMENA RISHABH [facility], L.L.CJacobo 5 11:38:18 Date Recorded Body height Body mass index (BMI) Body weight Oxygen saturation Heart rate Respiratory rate Systolic And Diastolic Provider Name and Address Organization Details Last Updated DateTime 5 152.4 cm 27.7 kg/m2 14880.1 2 g 98 % 80 /min 18 /min 136/80 mm[Hg] XIMENA RISHABH [facility] 5 15:40:44 Social History Question Answer Notes LastModified by Organizat ion Details LastModified Time Tobacco Smoking Status Former Smoker Quit 07/2023 XIMENA RISHABH [facility] L[facility]obo 12/24/2023 12:30:16 What Type Of Diet Are You Following? REGULAR [email or web address] Information not available 12/24/2023 Which Illicit Or Recreational Drugs Have You Used? Smokes Meth [email or web address] Information not available 10/10/2023 When Did You [...] or recreational drugs? Yes Quit Meth 07/2023 [email or web address] Information not available 12/24/2023 Do you or have you ever used any other forms of tobacco or nicotine? No Information not available 12/24/2023 What is your level of alcohol consumption? None [email or web address] Information not available 10/10/2023 Are you currently employed? No disabled [email or web address] Information not available 10/10/2023 Are you able to walk independently without assistance or assistive devices? YESASSIST [email or web address] Information not available 10/10/2023 Are you able to care for yourself independently? No Mother is her caregiver. [email or web address] Information not available 10/10/2023 Do you or have you ever used any nicotine-free cigarettes, vape, or chewing tobacco? No Information not available 12/24/2023 Mental Status None recorded. Family History Relationship Description Onset Age of this Age Resolved Age Notes LastModified by Organization Details LastModified Time Mother Myocardial infarction In her 50's [email or web address] Not available 12/29/2023 23:44:26 Mother Rheumatoid arthritis [email or web address] Not available 12/28 23:44:44 Brother Acute lymphoid leukemia [email or web address] Not available 10/18 18:24:23 Medical History Condition [...] polysaccharide PPV23 8 completed SUZANNE HEATON [address] [place], [address], [facility], Billie 12/24/2023 12:51:09 Past Encounters Encounter ID Performer Location Encounter Start Date Encounter Closed Date Diagnosis/Indication Diagnosis SNOMED-CT Code Diagnosis ICD10 Code Diagnosis IMO Codes Diagnosis Note [id number] SUZANNE HEATON [facility] ([facility]) [address] [place] [address] 10/10/2023 11:29:12 10/10/2023 13:24:32 Uncontrolled type 1 diabetes mellitus 682701821 E10.[address] Ortega. End stage renal failure on dialysis 230958843 Z99.2 MWF dialysis. Multi vess el coronary artery disease 081661959 I25.10 Following with cardiology in [facility]. Essential hypertension 30459352 I10 Coronary arteriosclerosis 76049789 I25.10 Follows with cardiology in [facility]. [id number] Matthew Packer DO [facility] ([facility]) [address] [place] [address] 12/02/2023 12:01:39 12/02/2023 13:56:02 Dental abscess 973319535 K04.7 Will start patient on lower dose amoxicilli n due to her hemodialys is status. Counseled patient that it is imperative that she see and be evaluated by a dentist in the next 2 to 4 weeks. [id number] SUZANNE HEATON [facility] ([facility]) [address] [place] [address] 12/24/2023 11:37:48 12/24/2023 14:35:44 Mixed anxiety and depressive disorder 520919030 F41.8 Essential hypertension 06089118 I10 Starting Nifedipine today. Type 1 mainor betes mellitus 10109025 E10.[address] Ortega. Pain in bi lateral legs 8495132291 4399777 M79.604 M79.605 Patient reports she took some of her mom's in the past and it was helpful. End stage renal failure on dialysis 488440117 Z99.2 MWF dialysis. [id number] SUZANNE HEATON [facility] ([facility]) [address] [place] [id number] 01/07/2024 15:11:38 01/07/2024 17:49:26 Edema 724913253 R60.9 Non-pittin g lower extremity. Chest pain 79964804 R07. 9 Recurrent. Following with cardiology . Blood pres sure outside reference range 10661570 Z01.31 Will half dose of nifedipine until she is seen with cardiology . [id number] ELIZABETH HOUSER [facility] ([facility]) [address] [place] [id number] 02/21/2024 11:42:22 02/21/2024 12:51:01 End-stage renal disease 52289333 N18.6 Continue dialysis. Essential hypertension 69111048 I10 Blood pressure good today. Continue current meds. Uncontroll ed type 1 diabetes mellitus 948728976 E10.65 Continue to follow with Dr. Ortega. Mixed anxi ety and depressive disorder 239569183 F41.8 [id number] ELIZABETH HOUSER [facility] ([facility]) [address] [place] [id number] 04/01/2024 13:47:35 04/01/2024 15:21:12 Essential hypertension 04307084 I10 Monitor at home. Follow-up with cardiology . Uncontroll ed type 1 diabetes mellitus 397521450 E10.65 Continue to follow with Dr. Ortega. [facility] ion care management 151705943 Z30.9 Has a Nexplanon in her left arm, has not been changed for 12 years per patient Chronic low back pain 27 1281020 M54.50 Would like to see about prescripti on for Tramadol. 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 Congestive heart failure 83795892 I50.9 Follows with Cardiology . Chronic ob structive pulmonary disease 83053296 J44.9 Uses Breo. Secondary hyperaldosteronism 80038043 E26.1 Currently on dialysis. Angina pectoris 50990214 0 I20.9 Follows with cardiology , has nitrostat, recent stent. Amputated toe 272646483 Z89.429 Follows with podiatry. Chronic re current major depressive disorder 2907173 F33.1 Continue Lexapro. [id number] SUZANNE HEATON [facility] ([facility]) [address] [place] [id number] 05/01/2024 11:41:02 05/01/2024 13:20:39 Chronic chest pain 2531320726 23473 R07.9 Encouraged her mother to contact cardiology for follow-up. Essential hypertension 28809760 I10 Monitor at home. Restart Coreg. Abnormal vision 9518472 H54.7 [id number] SUZANNE HEATON [facility] ([facility]) [address] [place] [id number] 07/01/2024 13:56:52 07/01/2024 15:11:16 Essential hypertension 41422746 I10 Blood pressure this am was 125/80. Type 1 mainor betes mellitus 38066852 E10.[address] Ortega. Mixed anxi ety and depressive disorder 526710387 F41.8 Swelling of lower leg 44 6277014 R22.40 Hypoxemic respiratory failure 6632314177 1209811 J96.91 Uses oxygen at home as needed. 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 Depressive disorder 3548 9007 F33.1 Continue escitalopr am. 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 Congestive heart failure 65149201 I50.9 I50.30 Follows with Cardiology . Chronic ki dney disease stage 5 101808547 N18.5 Z99.2 Currently on dialysis. Amputated toe 453513586 Z89.429 Follows with podiatry. Low back pain 812497904 M54.50 Gabapentin . Hypertensi ve heart and renal disease with (congestive) heart failure 864840965 I13.2 Follows with Cardiology . Chronic ob structive pulmonary disease 77426282 J44.9 Uses Breo. Chronic ki dney disease due to type 2 diabetes mellitus [id number] 08 N18.6 Currently on dialysis. [id number] SUZANNE HEATON [facility] ([facility]) [address] [place] [address] [phone] 5 09/16/2024 09:15:48 09/16/2024 11:21:40 Coronary arteriosclerosis 89546262 I25.10 Recent stent placement. Anemia 260790220 D64.9 Acute supp urative otitis media without spontaneous rupture of ear drum 66781336 H66.001 Pain in bi lateral legs [id number] 5863153 M79.604 M79.605 She has been taking 100mg three times daily but feels like it needs to be increased. [id number] ELIZABETH HOUSER [facility] ([facility]) [address] [place] [address] [phone] 5 10/05/2024 10:02:53 10/05/2024 11:11:59 Coronary atherosclerosis 767425941 I25.10 She has 8 stents now. Mixed anxi ety and depressive disorder 439436899 F41.8 She has been having vivid dreams lately revolving around her brother who recently as well as her daughter who . Hospital i npatient stay within past 30 days [id number] 106 Z76.89 [id number] ELIZABETH HOUSER [facility] ([facility]) [address] [place] [address] [phone] 5 11/27/2024 09:57:25 11/27/2024 10:57:38 Essential hypertension 05349005 I10 Blood pressure this am was 179/112 at home, in office is 150/80. Afternoon readings have been good. Type 1 mainor betes mellitus 93650343 E10.[address] Ortega. Pain in bi lateral legs 9582568690 7786341 M79.604 M79.605 Anxiety 46702208 F41.8 [id number] Unable to lay still for MRI. Will send in clonazepam to take prior to procedure. [id number] SUZANNE HEATON [facility] ([facility]) [address] [place] [address] [phone] 5 01/06/2025 11:45:44 01/06/2025 13:58:55 Chronic chest pain 6889844360 38288 R07.9 G89.29 653714 Chronic ki dney disease stage 5 306922583 N18.5 Z99.2 Currently on dialysis. Coronary arteriosclerosis 09948280 I25.10 Recent stent placement. Follow-up with cardiology next week. Will discuss chest pain with them as well. [id number] SUZANNE HEATON [facility] ([facility]) [address] [place] [address] [phone] 5 03/03/2025 12:06:42 03/03/2025 14:00:46 Neuropathy due to diabetes mellitus 163678097 E11.40 Decrease gabapentin to 100mg three times daily. Chronic renal failure 90 511065 N18.5 [id number] Dialysis. Hyperkalemia 27861341 E8 7.5 9805 Labs checked yesterday at Dialysis. Atypical chest pain 1025 42486 R07.89 672271 Recurrent. Following with cardiology . Recently started Isosorbide . History of abnormal cervical Papanicolaou smear 611015957 Z87.42 [id number] SUZANNE HEATON [facility] ([facility]) [address] [place] [address] [phone] 5 03/31/2025 10:56:17 03/31/2025 12:04:26 Chronic chest pain 8002729047 34950 R07.9 G89.29 554163 Spasm 25182790 M62.838 Pain in bi lateral legs 2965909925 7935609 M79.604 M79.605 Site-speci fic infective disorders of skin 348253801 L08.9 96368 right index finger Chronic pain syndrome 37 1695096 G89.4 14764 Gabapentin . [id number] SUZANNE HEATON [facility] ([facility]) [address] [place] [address] [phone] 5 04/14/2025 11:22:24 04/14/2025 14:24:51 Chronic chest pain 0803424170 79137 R07.9 G89.29 783270 Essential hypertension 37898541 I10 45083 Took her blood pressure medication about an hour ago. Pressure at home has been pretty good. Type 1 mainor betes mellitus 17369819 E10.[address] Ortega. Will schedule pump training with patient on a [facility]. Will have protective services officer set up a time where she can use an exam room here. [id number] SUZANNE HEATON [facility] ([facility]) [address] [place] [address] 05/05/2025 14:52:32 05/05/2025 16:30:15 Pain of knee region 4993099180 M25.569 Chest pain 30558720 R07. 9 569010 Recurrent. Following with cardiology . Recently started colchicine daily and it has been helpful. Chronic ki dney disease stage 5 310149608 N18.5 Z99.2 Currently on dialysis. Generalize d anxiety disorder 47978009 F41.1 05654 Unable to lay still for MRI. Will [...] [place] - [facility] (MEDICARE) Donita Aguilar [id number] Donita Aguilar 04/25/2025 [place] [facility] ([facility] ) Donita Aguilar [id number] Donita Aguilar 04/25/2025 2 [place] Donita Aguilar [id number] Donita Aguilar 04/25/2025 1 [place]: [facility] Donita Aguilar [id number] Donita Aguilar 12/07/2024 1 [facility] ([facility]ICAID REPLACEMENT - HMO) [facility] Donita Aguilar [id number] Donita Aguilar Notes Date Note Type Note Provider Name and Address Organization Details Recorded Time 5 text/htm l Angina/Chest PainReported by PatientHPIFor quality, patient reportssqueezingandsoreness. For location, patient reportsmidsternal. For severity, patient reportsmoderate. SUZANNE HEATON [address] [place] [address], [phone], [facility], [place] 01/06/2025 12:54:30 5 text/htm [...] gabapentin lowered back to 100mg. SUZANNE HEATON [address] [place] [address], [phone], [facility] 03/03/2025 13:06:19 5 text/htm l Angina/Chest PainReported by PatientIFor quality, patient reportsheaviness. For context, patient reportsat rest. For severity, patient reportsmoderate. For onset/timing, patient reportshas noted for yearsandintermittent. For alleviating factors, patient reportsnitroglycerinandrest. SUZANNE HEATON [address] [place] [address], [phone], [facility] 03/31/2025 17:08:26 5 text/htm l DyspneaReported by PatientIFor quality, patient reportssqueezing,tightness,p ressure,can't catch breath,breathlessness,inabil ity to take a deep breath, andhurts to breathe. For associated symptoms, patient reportsfever,chills,weakness ,hoarseness, anddecrease in exercise capacity. For severity, patient reportsmoderateandlimits activity. For duration, patient reportsfor 2 weeks. For onset/timing, patient reportswith exertion. For pulmonary disease history, patient reportshistory of pulmonary disease. SUZANNE HEATON [address] [place] [address], [phone], [facility], [place] 04/14/2025 14:09:54 5 text/htm l Generalized Anxiety DisorderReported by Patient Joint PainReported by PatientHPIFor quality, patient reportsdull. For location, patient reportsleft knee. For severity, patient reportsno change. For duration, patient reportspresent <1 month. For timing, patient reportsconstant. ELIZABETH HOUSER, [address], [phone], [facility], [place] 05/06/2025 10:11:39 OBGyn Episode No OBEpisode recorded.
--- OUTSIDE RECORDS SUMMARY | 2025-05-24 21:19 | XMS_ITS | Encounter Summary ---
Author Organization [facility] Address [address] [place] [address] Care Team Providers Care Campus Supervisor Name Role Phone Shravan Jones DO Primary Care Provider [phone] Encounter Details Date Type Department Care Team (Late st Contact Info) Description 12/31/2016 Lab Requisition [facility] [address] [place] [address] David Ortega MD [address] [place] [address] Social History Tobacco Use Types Packs/Day Years Used Date Smoking Tobacco: Every Day Cigarettes Comments:pt lethargic Comments Unknown Sex and Gender Information Value Date Recorded Sex Assigned at Not on file Legal Sex Female 4:38 AM MANAGER VALIDATION Gender Identity Not on file Sexual Orientation [...] - 2.6 mg/dL 12/31/2016 5:52 AM T [facility] Blood 12/31/2016 2:26 AM CDT 12/31/2016 5:17 AM CDT [facility] - 12/31/2016 5:52 AM CDT Due to Inorganic Chemist update, MG+ reference range has changed from 1.8 - 2.4 mg/dL to the new reference range of 1.6 - 2.6 mg/dL. This will have limited patient impact. us David Ortega MD CHEMISTRY ORDERABLES Final Res ult [facility] CLIA# [id number] [address] [place] [address] * (ABNORMAL) COMPREHENSIVE METABOLIC PANEL (12/31/2016 2:26 AM CDT) SODIUM 138 136 - 145 mmol/L 12/31/2016 5:52 AM CDT [facility] POTASSIUM 4.7 3.5 - 5.1 mmol/L 12/31/2016 5:52 AM [facility] CHLORIDE 102 98 - 107 mmol/L 12/31/2016 5:52 AM T [facility] CO2 27 21 - 32 mmol/L 12/31/2016 5:52 AM T [facility] CALCIUM 9.1 8.4 - 10.1 mg/dL 12/31/2016 5:52 AM T [facility] BUN 17 7 - 17 mg/dL 12/31/2016 5:52 AM T [facility] CREATININE 0.87 0.55 - 1.02 mg/dL 12/31/2016 5:52 AM T [facility] GLUCOSE 214(H) 74 - 106 mg/dL 12/31/2016 5:52 AM T [facility] TOTAL PROTEIN 8.2 6.4 - 8.2 g/dL 12/31/2016 5:52 AM T [facility] ALBUMIN 1.9(L) 3.4 - 5.0 g/dL 12/31/2016 5:52 AM CDT [facility] BILIRUBIN TOTAL 0.2 0.2 - 1.0 mg/dL 12/31/2016 5:52 AM CDT [facility] ALKALINE PHOSPHATASE 95 25 - 100 U/L 12/31/2016 5:52 AM CDT [facility] AST 9(L) 15 - 37 U/L 12/31/2016 5:52 AM CDT [facility] ALT 14 13 - 61 U/L 12/31/2016 5:52 AM CDT [facility] GFR >60 >=60 mL/min/1.7 3 sq meter 12/31/2016 5:52 AM T [facility] Comment: eGFR [...] 3 sq meter 12/31/2016 5:52 AM CDT [facility] ANION GAP 9 4 - 30 mmol/L 12/31/2016 5:52 AM T [facility] Blood 12/31/2016 2:26 AM CDT 12/31/2016 5:17 AM CDT us David Ortega MD CHEMISTRY ORDERABLES Final Res ult [facility] CLIA# [id number] [address] [place] [address] * (ABNORMAL) CBC WITH DIFFERENTIAL (12/31/2016 2:26 AM CDT) WBC 13.7(H) 4.5 - 11.0 K/uL 12/31/2016 6:32 AM [facility] RBC 3.66(L) 4.20 - 5.40 M/uL 12/31/2016 6:32 AM [facility] HEMOGLOBIN 9.3(L) 12.0 - 16.0 g/dL 12/31/2016 6:32 AM [facility] [employer] [facility] HEMATOCRIT 29.6(L) 36.0 - 46.0 % 12/31/2016 6:32 AM [facility] [employer] [facility] MCV 80.9(L) 84.0 - 103.0 fL 12/31/2016 6:32 AM [facility] [employer] [facility] MCH 25.4(L) 27.0 - 34.0 pg 12/31/2016 6:32 AM [facility] MCHC 31.4 30.0 - 35.0 g/dL 12/31/2016 6:32 AM [facility] [employer] [facility] RDW 17.4(H) 11.0 - 14.5 % 12/31/2016 6:32 AM [facility] [employer] [facility] RDW-STDEV 52.1 37.0 - 54.0 fL 12/31/2016 6:32 AM [facility] [employer] [facility] PLATELETS 767(H) 140 - 440 K/uL 12/31/2016 6:32 AM [facility] [employer] [facility] MPV 9.0 8.9 - 12.8 fL 12/31/2016 6:32 AM [facility] [employer] [facility] NEUTROPHILS 68 42 - 75 % 12/31/2016 6:32 AM [facility] [employer] [facility] LYMPHOCYTES 17(L) 24 - 44 % 12/31/2016 6:32 AM [facility] [employer] [facility] MONOCYTES 8 2 - 10 % 12/31/2016 6:32 AM [facility] [employer] [facility] EOSINOPHILS 6 0 - 7 % 12/31/2016 6:32 AM [facility] [employer] [facility] BASOPHILS 0 0 - 1 % 12/31/2016 6:32 AM [facility] [employer] [facility] IMMATURE GRANULOCYTES 1 0 - 2 % 12/31/2016 6:32 AM CDT [facility] NEUTROPHIL ABSOLUTE 9.26(H) 2.00 - 8.00 K/uL 12/31/2016 6:32 AM CDT [facility] LYMPHOCYTE ABSOLUTE 2.28 1.20 - 4.00 K/uL 12/31/2016 6:32 AM CDT [facility] MONOCYTE ABSOLUTE 1.07(H) 0.10 - 0.60 K/uL 12/31/2016 6:32 AM CDT [facility] EOSINOPHIL ABSOLUTE 0.82(H) 0.00 - 0.70 K/uL 12/31/2016 6:32 AM CDT [facility] BASOPHILS ABSOLUTE 0.06 0.00 - 0.20 K/uL 12/31/2016 6:32 AM CDT [facility] IMMATURE GRANULOCYTES ABSOLUTE 0.17(H) 0.00 - 0.10 K/uL 12/31/2016 6:32 AM CDT [facility] Blood 12/31/2016 2:26 AM CDT 12/31/2016 5:17 AM CDT Narrative [facility] - 12/31/2016 6:32 AM CDT Smear reviewed us David Ortega MD HEMATOLOGY ORDERABLES Final Re sult [facility] CLIA# [id number] [address] [place] [address] documented in this encounter Visit Diagnoses Not on filedocumented in this encounter Care Teams Campus Supervisor Relationship Specialty Start Date End Date Shravan Jones DO PCP - General Family Practice 12/04/16 documented as of this encounter
--- OUTSIDE RECORDS SUMMARY | 2025-05-24 21:19 | XMS_ITS | Encounter Summary ---
Author Organization [facility] Address [address] [place] [address] Care Team Providers Care Gas Flow Regulator Name Role Phone Shravan Jones DO Primary Care Provider [phone]- [phone] Encounter Details Date Type Department Care Team (Late st Contact Info) Description 01/09/2017 Lab Requisition [facility] [address] [place] [address] Izabela Diamond MD NO ADDRESS ON FILE Social History Tobacco Use Types Packs/Day Years Used Date Smoking Tobacco: Every Day Cigarettes Comments:pt lethargic Comments Unknown Sex and Gender Information Value Date Recorded Sex Assigned at Not on file Legal Sex Female 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 This will have limited patient impact. us Izabela Diamond MD CHEMISTRY ORDERABLES Final Res ult [facility] CLIA# [id number] [address] [place] [address] * (ABNORMAL) COMPREHENSIVE METABOLIC PANEL (01/09/2017 3:15 AM CDT) SODIUM 139 136 - 145 mmol/L 01/09/2017 5:53 AM CDT [facility] POTASSIUM 4.1 3.5 - 5.1 mmol/L 01/09/2017 5:53 AM T [facility] CHLORIDE 101 98 - 107 mmol/L 01/09/2017 5:53 AM T [facility] CO2 28 21 - 32 mmol/L 01/09/2017 5:53 AM T [facility] CALCIUM 8.8 8.4 - 10.1 mg/dL 01/09/2017 5:53 AM T [facility] BUN 18(H) 7 - 17 mg/dL 01/09/2017 5:53 AM T [facility] CREATININE 0.73 0.55 - 1.02 mg/dL 01/09/2017 5:53 AM T [facility] GLUCOSE 182(H) 74 - 106 mg/dL 01/09/2017 5:53 AM T [facility] TOTAL PROTEIN 8.4(H) 6.4 - 8.2 g/dL 01/09/2017 5:53 AM T [facility] ALBUMIN 2.5(L) 3.4 - 5.0 g/dL 01/09/2017 5:53 AM CDT [facility] BILIRUBIN TOTAL 0.2 0.2 - 1.0 mg/dL 01/09/2017 5:53 AM CDT [facility] ALKALINE PHOSPHATASE 99 25 - 100 U/L 01/09/2017 5:53 AM CDT [facility] AST 30 15 - 37 U/L 01/09/2017 5:53 AM CDT [facility] ALT 27 13 - 61 U/L 01/09/2017 5:53 AM CDT [facility] GFR >60 >=60 mL/min/1.7 3 sq meter 01/09/2017 5:53 AM T [facility] [...] sq meter 01/09/2017 5:53 AM CDT [facility] ANION GAP 10 4 - 30 mmol/L 01/09/2017 5:53 AM T [facility] Blood 01/09/2017 3:15 AM CDT 01/09/2017 5:12 AM CDT us Izabela Diamond MD CHEMISTRY ORDERABLES Final Res ult [facility] CLIA# [id number] [address] [place] [address] * (ABNORMAL) CBC WITH DIFFERENTIAL (01/09/2017 3:15 AM CDT) WBC 8.7 4.5 - 11.0 K/uL 01/09/2017 5:20 AM [facility] RBC 4.63 4.20 - 5.40 M/uL 01/09/2017 5:20 AM [facility] HEMOGLOBIN 11.3(L) 12.0 - 16.0 g/dL 01/09/2017 5:20 AM [facility] HEMATOCRIT 36.8 36.0 - 46.0 % 01/09/2017 5:20 AM [facility] MCV 79.5(L) 84.0 - 103.0 fL 01/09/2017 5:20 AM [facility] MCH 24.4(L) 27.0 - 34.0 pg 01/09/2017 5:20 AM [facility] MCHC 30.7 30.0 - 35.0 g/dL 01/09/2017 5:20 AM [facility] RDW 17.3(H) 11.0 - 14.5 % 01/09/2017 5:20 AM [facility] RDW-STDEV 50.4 37.0 - 54.0 fL 01/09/2017 5:20 AM [facility] PLATELETS 463(H) 140 - 440 K/uL 01/09/2017 5:20 AM [facility] MPV 9.9 8.9 - 12.8 fL 01/09/2017 5:20 AM [facility] NEUTROPHILS 46 42 - 75 % 01/09/2017 5:20 AM [facility] LYMPHOCYTES 33 24 - 44 % 01/09/2017 5:20 AM [facility] MONOCYTES 8 2 - 10 % 01/09/2017 5:20 AM [facility] EOSINOPHILS 11(H) 0 - 7 % 01/09/2017 5:20 AM [facility] BASOPHILS 1 0 - 1 % 01/09/2017 5:20 AM [facility] IMMATURE GRANULOCYTES 0 0 - 2 % 01/09/2017 5:20 AM [facility] NEUTROPHIL ABSOLUTE 4.05 2.00 - 8.00 K/uL 01/09/2017 5:20 AM CDT [facility] LYMPHOCYTE ABSOLUTE 2.86 1.20 - 4.00 K/uL 01/09/2017 5:20 AM CDT [facility] MONOCYTE ABSOLUTE 0.73(H) 0.10 - 0.60 K/uL 01/09/2017 5:20 AM CDT [facility] EOSINOPHIL ABSOLUTE 0.95(H) 0.00 - 0.70 K/uL 01/09/2017 5:20 AM CDT [facility] BASOPHILS ABSOLUTE 0.11 0.00 - 0.20 K/uL 01/09/2017 5:20 AM CDT [facility] IMMATURE GRANULOCYTES ABSOLUTE 0.03 0.00 - 0.10 K/uL 01/09/2017 5:20 AM CDT [facility] Blood 01/09/2017 3:15 AM CDT 01/09/2017 5:12 AM CDT us Izabela Diamond MD HEMATOLOGY ORDERABLES Final Re sult [facility] CLIA# [id number] [address] [place] [address] * (ABNORMAL) HEMOGLOBIN A1C (01/09/2017 2:52 AM CDT) HEMOGLOBIN A1C 8.9(H) 4.0 - 6.0 % 01/09/2017 1:31 PM CDT [facility] EST. AVG GLUCOSE, A1C 209 mg/dL 01/09/2017 1:31 PM CDT [facility] Blood 01/09/2017 2:52 AM CDT 01/09/2017 6:53 AM CDT Narrative [facility] - 01/09/2017 1:31 PM CDT Test performed on [facility] instrumentation using HPLC methodology us Izabela Diamond MD CHEMISTRY ORDERABLES Final Res ult [facility] CLIA# [id number] [address] [place] [address] documented in this encounter Visit Diagnoses Not on filedocumented in this encounter Care Teams Gas Flow Regulator Relationship Specialty Start Date End Date Shravan Jones DO PCP - General Family Practice 12/04/16 documented as of this encounter
--- OUTSIDE RECORDS SUMMARY | 2025-05-24 21:19 | XMS_ITS | Clinical Summary ---
Author Organization [employer] Address [address] [facility] Attn: [place] [address] Care Team Providers Care Coal Carrier Name Role Phone Shravna Jones DO Primary Care Provider Allergies Active [...] subcutaneous injection. Active naloxone (NARCAN) 4 mg/spray [place], Non-Aerosol EMERGENCY USE ONLY: Administer 1 spray [...] regarding vascular access for dialysis for ESRD ([facility]) Take 1 Tablet (5 mg) [...] troponin 09/22/2023 Coronary artery disease invo lving [place] coronary artery of [place] heart without angina pectoris 09/21/2023 End stage [...] and Family Not on file 09/22/2023 Attends [employer] Not on file 09/21 Active Member [...] on file Legal Sex Female 3:34 PM PERSON INVESTIGATOR Gender Identity Not on file Sexual Orientation [...] st Contact Info) Description 08/18/2025 11:00 AM PERSON INVESTIGATOR Office Visit [facility] Gastroenterology- Dl [address] [place] [address] Kellee Garcia, BARREL DRAINER [address] [place] [address] Health Maintenance Due Date Last [...] 10/11/1999, 09/06/1999 Medical Devices Implanted Type Area Assistant Women'S Soccer Coach Device Identifier Shelf Expiration Date Model / Serial / Lot Max 1gm Flour [id number] - [id number] Implanted:Qty : 2 on 12/17/2016 by Deandre Alan MD Biological Left: Lung CR BARD- DAVOL INC 09/19/2019 [id number] / / [id number] Cath Dialysis Glidepath 14.5fr 24cm Std [id number] - [id number] Implanted:Qty : 1 on 03/18/2024 by Asif Mcclellan MD at [facility] Catheter Right: Chest BARD ANGEL VASC 09/21/2025 [id number] / / [id number] Clip Ligating Horizon Red [id number] - [facility] [place] - [id number] Implanted:Qty : 1 on 08/10/2024 by Chato Fitch MD at [facility] Clip Left: Arm [employer]LE[employer] INC [id number] 05/16/2029 138238 / / [id number] Clip Ligating Horizon Med Ti 098552 - Csc - [id number] Implanted:Qty : 1 on 08/10/2024 by Chato Fitch MD at [facility] Clip Left: Arm TELEFLEX- WECK CLOSURE SYS [id number] 03/31/2029 [id number] / / [id number] Patrol Driver Ligaclip Sml Mcs20 - [id number] Implanted:Qty : 1 on 08/10/2024 by Chato Fitch MD at [facility] Clip Left: Arm J&J- [employer] [id number] 03/23/2029 MCS20 / / [id number] Closure Perclose Prostyle Sut Mediate 23653-00 - [id number] Implanted:Qty : 1 on 09/24/2023 by Janell Beauchamp MD at [facility] Closure Device N/A: Groin LOVE- VASC DEVICE [id number] 06/23/2025 96892-49 / / [id number] Closure Perclose Prostyle Sut Mediate 10432-41 - [id number] Implanted:Qty : 1 on 10/24/2023 by Janell Beauchamp MD at [facility] Closure Device Right: Groin LOVE- VASC DEVICE [id number] 07/24/2025 22216-87 / / [id number] Oil Slc 8.5ml [id number] - Sgtin:[id number] Implanted:Qty : 1 on 06/23/2024 by Janey Carrera MD at [facility] Eye Right: Eye [facility] [employer] 12/21/2026 [id number] / GTIN:[id number] / [id number] Graft Vasc Propaten 4-4nvz20ul B466170g - [id number] Implanted:Qty : 1 on 08/10/2024 by Chato Fitch MD at [facility] Graft Left: Arm [employer] [id number] 05/21/2027 [id number] / [id number] / Agent Hemostat Surgicel 2x3in 1952s - [id number] Implanted:Qty : 1 on 08/10/2024 by Chato Fitch MD at [facility] Hemostatic Left: Arm J&J- ETHICON INC [id number] 12/21/20281952S / / [id number] Hemostatic Surgiflo 8ml W/ Thrombin 2994 - [id number] Implanted:Qty : 1 on 08/10/2024 by Chato Fitch MD at [facility] Hemostatic Left: Arm J&J- ETHICON INC [id number] 10/21/2025 2994 / / [id number] Agent Hemostat Surgicel 2x3in 1952s - [id number] Implanted:Qty : 1 on 08/10/2024 by Chato Fitch MD at [facility] Hemostatic Left: Arm J&J- ETHICON INC [id number] 12/21/20281952S / / [id number] Stent Synergy Xd 3.0x48mm Evrlms Elut [id number] - [id number] Implanted:Qty : 1 on 09/24/2023 by Janell Beauchamp MD at [facility] Stent N/A: Coronary [employer] [id number] 03/31/2025 [id number] / / [id number] Stent Synergy Xd 2.61k17je Evrlms Elut [id number] 0 - [id number] Implanted:Qty : 1 on 10/24/2023 by Janell Beauchamp MD at [facility] Stent Left: Coronary [employer] [id number] 08/19/2024 [id number] 220 / / [id number] Control Implant Funmi Procedures Procedure Name Priority Date/Time Associated Diagnosis Comments LIPID PANEL Routine 09/21/2023 6:47 PM CDT HEMOGLOBIN A1C Routine 09/21/2023 6:46 PM CDT from Last 3 Months or Most Recently Relevant to Health Maintenance Results * (ABNORMAL) LIPID PANEL (09/21/2023 6:47 PM CDT) CHOLESTEROL 96 <200 mg/dL 09/21/2023 10:29 PM CDT [facility] TRIGLYCERIDE 164(H) <150 mg/dL 09/21/2023 10:29 PM CDT [facility] HDL 36(L) 40 - 59 mg/dL 09/21/2023 10:29 PM CDT [facility] LDL CALCULATED 27 <100 mg/dL 09/21/2023 10:29 PM CDT [facility] NON-HDL CHOLESTEROL 60 <130 mg/dL 09/21/2023 10:29 PM T [facility] Blood Venipuncture / Unknown 09/21/2023 6:47 PM CDT 09/21/2023 7:10 PM CDT Narrative [facility] - 09/21/2023 10:29 PM CDT TOTAL [...] Lacy MD CHEMISTRY ORDERABLES Final R esult [facility] CLIA # [id number] [address] [address] * (ABNORMAL) HEMOGLOBIN A1C (09/21/2023 6:46 PM CDT) HEMOGLOBIN A1C 6.8(H) <=5.6 % 09/23/2023 9:24 AM CDT [facility] EST. AVG GLUCOSE, A1C 148 mg/dL 09/23/2023 9:24 AM CDT [facility] Blood Venipuncture / Unknown 09/21/2023 6:46 PM CDT 09/21/2023 7:08 PM CDT Narrative [facility] - 09/23/2023 9:24 AM CDT HGB A1C INTERPRETATION NORMAL: <5.7% PRE-DIABETES: 5.7 - 6.4% DIABETES: 6.5% OR GREATER Luiz Lacy MD CHEMISTRY ORDERABLES Final R esult [facility] CLIA # [id number] [facility] [address] from Last 3 Months or Most Recently Relevant to Health Maintenance Insurance [place] PART [place] B Advance Directives For more information, please contact: [phone] * Full Code (Latest Code Status on File) Date Activated Date Inactivated Comments 10/24/2023 2:34 PM 10/25/2023 11:47 AM * Full Code Date Activated Date Inactivated Comments 10/24/2023 9:13 AM 10/24/2023 2:34 PM * Full Code Date Activated Date Inactivated Comments 09/24/2023 3:14 PM 09/25/2023 9:51 PM * Full Code Date Activated Date Inactivated Comments 09/21/2023 5:50 PM 09/24/2023 3:14 PM Care Teams Coal Carrier Relationship Specialty Start Date End Date Shravan Jones DO PCP - General Family Practice 12/04/16
--- OUTSIDE RECORDS SUMMARY | 2025-05-24 21:19 | XMS_ITS | Encounter Summary ---
Author Organization [facility] Address [address] [place] [address] Care Team Providers Care Consulting Application Engineer Name Role Phone Shravan Jones DO Primary Care Provider Encounter Details Date Type Department Care Team (Late st Contact Info) Description 12/28/2016 Lab Requisition [facility] [address] [place] [address] David Ortega MD [address] [place] [address] Social History Tobacco Use Types Packs/Day Years Used Date Smoking Tobacco: Every Day Cigarettes Comments:pt lethargic Comments Unknown Sex and Gender Information Value Date Recorded Sex Assigned at Not on file 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 Gender Identity Not on file Sexual [...] (12/28/2016 2:39 AM CDT) Pathologist [facility] PHOSPHORUS 3.4 2.5 - 4.9 mg/dL 12/28/2016 5:42 AM CDT [facility] Blood Collection / Unknown 12/28/2016 2:39 AM CDT 12/28/2016 5:01 AM CDT David Ortega MD CHEMISTRY ORDERABLES Final Res ult Performing Organization Address [facility] Co de Phone Number [facility] CLIA# [id number] [address] [place] [id number] * MAGNESIUM LEVEL (12/28/2016 2:39 AM CDT) [facility] MAGNESIUM 1.6 1.6 - 2.6 mg/dL 12/28/2016 5:42 AM CDT [facility] Blood Collection / Unknown 12/28/2016 2:39 AM CDT 12/28/2016 5:01 AM CDT Narrative [facility] - 12/28/2016 5:42 AM CDT Due to Lead Business Analyst update, MG+ reference range has changed from 1.8 - 2.4 mg/dL to the new reference range of 1.6 - 2.6 mg/dL. This will have limited patient impact. David Ortega MD CHEMISTRY ORDERABLES Final Res ult Performing Organization Address [facility] Co de Phone Number [facility] CLIA# [id number] [address] [place] [address] * PROTIME-INR (12/28/2016 2:39 AM CDT) [facility] PROTIME 15.0 12.3 - 15.5 Seconds 12/28/2016 5:16 AM CDT [facility] INR 1.1 0.8 - 1.2 12/28/2016 5:16 AM CDT [facility] Blood Collection / Unknown 12/28/2016 2:39 AM CDT 12/28/2016 5:01 AM CDT [place] [facility] - 12/28/2016 5:16 AM CDT Expected [...] Final Re sult [facility] CLIA# [id number] [address] [place] [address] * (ABNORMAL) PTT (12/28/2016 2:39 AM CDT) PTT 39.1(H) 24.8 - 38.8 seconds 12/28/2016 5:16 AM CDT [facility] Blood Collection / Unknown 12/28/2016 2:39 AM CDT 12/28/2016 5:01 AM CDT [place] [facility] - 12/28/2016 5:16 AM CDT Therapeutic Range: Hi-level PE/DVT heparin protocol 80.1 - 95.0 sec Lo-level PE/DVT heparin protocol 70.1 - 85.0 sec Cardiac Heparin Protocol 70.1 - 100.0 sec David Ortega MD HEMATOLOGY ORDERABLES Final Re sult [facility] CLIA# [id number] [facility] [place] [address] * (ABNORMAL) CBC WITH DIFFERENTIAL (12/28/2016 2:39 AM CDT) Pathologist [facility] WBC 11.0 4.5 - 11.0 K/uL 12/28/2016 5:09 AM CDT [facility] RBC 3.80(L) 4.20 - 5.40 M/uL 12/28/2016 5:09 AM CDT [facility] HEMOGLOBIN 9.3(L) 12.0 - 16.0 g/dL 12/28/2016 5:[facility] 30.6(L) 36.0 - 46.0 % 12/28/2016 5:09 AM CDT [facility] MCV 80.5(L) 84.0 - 103.0 fL 12/28/2016 5:09 AM CDT [facility] MCH 24.5(L) 27.0 - 34.0 pg 12/28/2016 5:09 AM CDT [facility] MCHC 30.4 30.0 - 35.0 g/dL 12/28/2016 5:09 AM CDT [facility] RDW 17.3(H) 11.0 - 14.5 % 12/28/2016 5:09 AM T [facility] RDW-STDEV 51.8 37.0 - 54.0 fL 12/28/2016 5:09 AM CDT [facility] PLATELETS 757(H) 140 - 440 K/uL 12/28/2016 5:09 AM CDT [facility] MPV 8.9 8.9 - 12.8 fL 12/28/2016 5:09 AM CDT [facility] NEUTROPHILS 65 42 - 75 % 12/28/2016 5:09 AM CDT [facility] LYMPHOCYTES 19(L) 24 - 44 % 12/28/2016 5:09 AM CDT [facility] MONOCYTES 10 2 - 10 % 12/28/2016 5:09 AM CDT [facility] EOSINOPHILS 5 0 - 7 % 12/28/2016 5:09 AM CDT [facility] BASOPHILS 1 0 - 1 % 12/28/2016 5:09 AM CDT [facility] IMMATURE GRANULOCYTES 1 0 - 2 % 12/28/2016 5:09 AM CDT [facility] NEUTROPHIL ABSOLUTE 7.19 2.00 - 8.00 K/uL 12/28/2016 5:09 AM CDT [facility] LYMPHOCYTE ABSOLUTE 2.04 1.20 - 4.00 K/uL 12/28/2016 5:09 AM CDT [facility] MONOCYTE ABSOLUTE 1.06(H) 0.10 - 0.60 K/uL 12/28/2016 5:09 AM CDT [facility] EOSINOPHIL ABSOLUTE 0.60 0.00 - 0.70 K/uL 12/28/2016 5:09 AM CDT [facility] BASOPHILS ABSOLUTE 0.07 0.00 - 0.20 K/uL 12/28/2016 5:09 AM CDT [facility] IMMATURE GRANULOCYTES ABSOLUTE 0.07 0.00 - 0.10 K/uL 12/28/2016 5:09 AM T [facility] Blood Collection / Unknown 12/28/2016 2:39 AM CDT 12/28/2016 5:01 AM CDT us David Ortega MD HEMATOLOGY ORDERABLES Final Re sult [facility] CLIA# [id number] [address] [place] [address] * (ABNORMAL) COMPREHENSIVE METABOLIC PANEL (12/28/2016 2:39 AM CDT) SODIUM 143 136 - 145 mmol/L 12/28/2016 5:47 AM CDT [facility] POTASSIUM 3.3(L) 3.5 - 5.1 mmol/L 12/28/2016 5:47 AM [facility] CHLORIDE 103 98 - 107 mmol/L 12/28/2016 5:47 AM [facility] CO2 29 21 - 32 mmol/L 12/28/2016 5:47 AM [facility] CALCIUM 8.9 8.4 - 10.1 mg/dL 12/28/2016 5:47 AM [facility] BUN 13 7 - 17 mg/dL 12/28/2016 5:47 AM [facility] CREATININE 0.70 0.55 - 1.02 mg/dL 12/28/2016 5:47 AM [facility] GLUCOSE 46(LL) 74 - 106 mg/dL 12/28/2016 5:47 AM [facility] TOTAL PROTEIN 8.2 6.4 - 8.2 g/dL 12/28/2016 5:47 AM [facility] ALBUMIN 1.8(L) 3.4 - 5.0 g/dL 12/28/2016 5:47 AM [facility] BILIRUBIN TOTAL 0.2 0.2 - 1.0 mg/dL 12/28/2016 5:47 AM [facility] ALKALINE PHOSPHATASE 93 25 - 100 U/L 12/28/2016 5:47 AM [facility] AST 18 15 - 37 U/L 12/28/2016 5:47 AM [facility] ALT 18 13 - 61 U/L 12/28/2016 5:47 AM [facility] GFR >60 >=60 mL/min/1.7 3 sq meter 12/28/2016 5:47 AM [facility] Comment: eGFR has not been [...] 3 sq meter 12/28/2016 5:47 AM CDT [facility] ANION GAP 11 4 - 30 mmol/L 12/28/2016 5:47 AM CDT [facility] Blood Collection / Unknown 12/28/2016 2:39 AM CDT 12/28/2016 5:01 AM CDT us David Ortega MD CHEMISTRY ORDERABLES Final Res ult [facility] CLIA# [id number] [address] [place] [address] documented in this encounter Visit Diagnoses Not on filedocumented in this encounter Care Teams Consulting Application Engineer Relationship Specialty Start Date End Date Shravan Jones DO PCP - General Family Practice 12/04/16 documented as of this encounter
--- OUTSIDE RECORDS SUMMARY | 2025-05-24 21:19 | XMS_ITS | Continuity of Care Document ---
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 completed [facility], DonteLJacoboCJacobo 09/13/2024 14:54:55 09/08/19 25 plain X-ray of chest completed [facility], DonteLJacoboCJacobo 09/13/2024 14:57:51 08/24/[address] of chest completed [facility] 08/24/2024 12:28:02 04/28/20 24 plain X-ray of chest completed [facility] 04/30/2024 11:08:42 03/31/20 24 plain X-ray of chest completed [facility] L[facility]L.C[facility] 04/01/2024 14:05:05 03/27/20 24 imaging guided percutaneous transluminal angioplasty of coronary artery with contrast completed [facility] 10/05/2024 10:23:19 02/28/20 24 radiographic procedure on chest and/or abdomen completed [facility], LJacoboL.CJacobo 03/04/2024 15:02:31 02/28/[address] of abdomen completed [facility], LJacoboL.CJacobo 03/04/2024 15:03:26 01/19/20 24 diagnostic radiography of abdomen completed [facility] 01/21/2024 17:26:25 01/06/20 24 plain X-ray of chest completed [facility] 01/07/2024 15:42:42 12/27/19 24 plain X-ray of chest completed [facility]obo 12/29/2023 23:23:06 12/27/19 24 CT of chest, abdomen and pelvis completed [facility], LJacoboL.CJacobo 12/29/2023 23:32:58 12/24/19 24 plain X-ray of chest completed [facility], LJacoboLJacoboCJacobo 12/29/2023 23:56:29 12/20/[address] of chest completed [facility], DonteLJacoboCJacobo 12/21/2023 12:33:52 12/20/19 24 plain X-ray of chest completed [facility] L.L.C[facility]obo 12/21/2023 12:34:44 12/09/19 24 plain X-ray of chest completed [facility] 12/12/2023 10:16:37 12/05/19 24 plain X-ray of chest completed [facility], L.LJacoboCJacobo 12/06/2023 13:24:46 11/28/19 24 cardiac catheterization completed [facility] 12/06/2023 13:11:07 11/28/19 24 imaging guided percutaneous transluminal angioplasty of coronary artery with contrast completed [facility], L.LJacoboC. 10/05/2024 10:22:55 11/27/19 24 plain X-ray of chest completed [facility], L.LJacoboCJacobo 11/28/2023 10:19:35 10/24/19 24 imaging guided percutaneous transluminal angioplasty of coronary artery with contrast completed [facility], L.L.CJacobo 10/05/2024 10:22:32 10/16/19 24 imaging guided percutaneous transluminal angioplasty of coronary artery with contrast completed [facility], LJacoboL.CJacobo 10/05/2024 10:22:12 10/07/19 24 plain X-ray of chest completed [facility], KaelynCJacobo 10/08/2023 17:52:40 09/20/19 24 echocardiography completed [facility], DonteLJacoboCJacobo 09/26/2023 12:48:56 lobectomy of lung completed XIMENAMAHI KEATING [facility], Billie 10/10/2023 12:32:47 amputation completed XIMENAMAHI KEATING [facility], DonteLJacoboCJacobo 08/24/2024 12:24:04 cholecystectomy completed [facility], DonteLJacoboCJacobo 09/13/2024 14:49:22 Imaging Results None recorded. Procedure Notes None recorded. Medical Equipment None Reported. Allergies Allergen ID Allergen Name Allergen Category Reaction Reaction Severity Criticality Documentation Date Start Date Code Code System Note Provider Name and Address Organization Details Recorded Time 29270 acetamino phen medicatio n abdominal pain moderate low 01/19/20232021 161 RxNorm GI upset /into leran ce Anh coles [facility], LJacoboLJacoboCJacobo 4 07:57:42 93878 acetamino phen medicatio n Not available Not available Not available 02/21/20242023 161 RxNorm ELIZABETH HOUSER, [facility] [address] [place], [address] , [facility], DonteLJacoboCJacobo 16:14:16 34307 ranolazin e medicatio n Not available Not available Not available 04/14/2025 30168 RxNorm Hallu cinat ions [facility] 11:33:58 Medications Name Sig Start Date [...] her to decrease to 100mg TID followin [facility], 02/27 and 02/28 Not Available Not Available [...] times per day 10/09 completed VO CH/jl; 93490; Recorded 05/14/20 19 10:02AM by Leydi Jessica [...] Last Updated DateTime 152.4 cm 26.8 kg/m2 06517.1 5 g 97 % 72 /min 18 /min 98 [degF] 120/70 mm[Hg] BRANDON RIVERA [facility] L[facility]obo 12:37:22 Social History Question Answer Notes LastModified by Organizat ion Details LastModified Time Tobacco Smoking Status Former Smoker Quit 07/2023 XIMENA coles [facility] 12/24/2023 12:30:16 What Type Of Diet Are You Following? REGULAR Information not available 12/24/2023 Which Illicit Or Recreational Drugs Have You Used? Smokes Meth [email or web address] Information not available 10/10/2023 When Did You Quit Smoking? 1-5yearssin celastcigar ette Information not available 12/24/2023 What Was The Date Of Your Most Recent Tobacco Screening? 12/24/2023 Information not available 12/24/2023 What Is Your Current Pack Years? 20-29packye ars Information not available 12/24/2023 What Is Your Relationship Status? Single [email or web address] Information not available 12/24/2023 At What Age [...] or recreational drugs? Yes Quit Meth 07/2023 [email or web address] Information not available 12/24/2023 Do you or have you ever used any other forms of tobacco or nicotine? No Information not available 12/24/2023 What is your level of alcohol consumption? None [email or web address] Information not available 10/10/2023 Are you currently employed? No disabled [email or web address] Information not available 10/10/2023 Are you able to walk independently without assistance or assistive devices? YESASSIST [email or web address] Information not available 10/10/2023 Are you able to care for yourself independently? No Mother is her caregiver. [email or web address] Information not available 10/10/2023 Do you or have you ever used any nicotine-free cigarettes, vape, or chewing tobacco? No Information not available 12/24/2023 Mental Status None recorded. Family History Relationship Description Onset Age of this Age Resolved Age Notes LastModified by Organization Details LastModified Time Mother Myocardial infarction In her 50's [email or web address] Not available 12/29/2023 23:44:26 Mother Rheumatoid arthritis [email or web address] Not available 12/28 23:44:44 Brother Acute lymphoid leukemia Not available 10/18 18:24:23 Medical History Condition Response Coronary Artery Disease Y Lung Disease Y COPD Y Depression Y Anxiety Disorder Y High Cholesterol Y Headaches Y Kidney Disease Y Heart Problems Y Hospitalizations Y Diabetes Y Heart Disease Y Hypertension Y Gynecological HistoryNo gynecological history recorded. Obstetrics History GPAL:G 0 P 0 0 0 0 Immunizations Vaccine Type Date Status Note Provider Nam e and Address Organization Details Recorded Time pneumococcal polysaccharide PPV23 8 completed SUZANNE HEATON [address] [place], [address], [facility] 12/[facility]/2023 12:51:09 Past Encounters Encounter ID Performer Location Encounter Start Date Encounter Closed Date Diagnosis/Indication Diagnosis SNOMED-CT Code Diagnosis ICD10 Code Diagnosis IMO Codes Diagnosis Note [id number] SUZANNE HEATON [facility] ([facility]) [address] [place] [address] 03/03/2025 12:06:42 03/03/2025 14:00:46 Neuropathy due to diabetes mellitus 201433067 E11.40 Decrease gabapentin to 100mg three times daily. Chronic renal failure 90 524831 N18.5 32994721 Dialysis. Hyperkalemia 74139103 E8 7.5 9805 Labs checked yesterday at Dialysis. Atypical chest pain 1025 87677 R07.89 [id number] Recurrent. Following with cardiology . Recently started Isosorbide . History of abnormal cervical Papanicolaou smear 770803351 Z87.42 [id number] Health Concerns Section Related Observation LastModified by Organization Detai ls LastModified Time None Recorded Concern Status LastModified by Organization Details LastModified Time None Recorded Payers Encounter Date Sequence Insurance Name Policy Number Policy Varela Covered Member ID Varela Member ID Guarantor Name 03/03/2025 1 [place] Donita Aguilar [id number] Donita Aguilar 03/03/2025 2 [place] Donita Aguilar [id number] Donita Aguilar Notes Date Note Type Note [...] lowered back to 100mg. SUZANNE HEATON [address] [place], [address], [facility] 03/03/2025 13:06:19 OBGyn Episode No OBEpisode recorded.
[2025-05-24 21:56] VITALS: BP 138/75; PULSE 82; RESP 18; TEMP 36.8; O2SAT 97; BMI 27.3
--- NOTE | 2025-05-25 00:03 | CTR_ITS ---
PROCEDURE INFORMATION: Exam: CT Abdomen And Pelvis Without Contrast Exam date and time: 05/25/2025 2:18 AM Age: 39 years old Clinical indication: Abdominal pain; Additional info: Abd pain, esrd on hd TECHNIQUE: Imaging protocol: Computed tomography of the abdomen and pelvis without contrast. Radiation optimization: All CT scans at this facility use at least one of these dose optimization techniques: automated exposure control; mA and/or kV adjustment per patient size (includes targeted exams where dose is matched to clinical indication); or iterative reconstruction. COMPARISON: CT abdomen pelvis con [id number] 05/15/2025 11:33 PM RADIATION DOSE METRICS: Total DLP (mGy-cm): 498.31 FINDINGS: Lungs: Calcified granuloma in the right lung base measures 9 mm. Liver: Normal. No mass. Gallbladder and biliary ducts: Cholecystectomy. Pancreas: Normal. No ductal dilation. Spleen: Multiple calcified splenic granulomas. Adrenal glands: Normal. No mass. Kidneys and ureters: No nephrolithiasis, hydronephrosis, or obstructive uropathy. Stomach and bowel: Diverticulosis, without acute diverticulitis. No small bowel obstruction. No free air. Appendix: No evidence of appendicitis. Intraperitoneal space: See Stomach and bowel finding. Vasculature: Atherosclerotic changes of the aorta. Lymph nodes: Unremarkable. No enlarged lymph nodes. Urinary bladder: Wall thickening of the urinary bladder, concerning for UTI. Urinalysis recommended. Reproductive: Unremarkable as visualized. Bones/joints: Degenerative changes of the spine. Bilateral pars defects at L5. Soft tissues: Unremarkable. CT/CT abdomen pelvis con [id number] IMPRESSION: 1. Cholecystectomy. 2. Wall thickening of the urinary bladder, concerning for UTI. Urinalysis recommended. 3. No nephrolithiasis, hydronephrosis, or obstructive uropathy. 4. Diverticulosis, without acute diverticulitis. No small bowel obstruction. No free air.
--- NOTE | 2025-05-25 00:04 | ECG_ITS ---
[email or web address] Test Date: 2025-05-24 Pat Name: Donita Aguilar Department: Room: Gender: Female Mail Order Sorter: : 1985 Requested By: Brennan Garcia Order Number: [id number] Salmeron MD: Gilberto Eugene M.D. Measurements Intervals [place]ison Rate: 82 P: 72 CT: 182 QRS: -11 QRSD: 102 T: 25 QT: 386 QTc: 452 Interpretive Statements SINUS RHYTHM POSSIBLE LEFT ATRIAL ENLARGEMENT [-0.1mV P-WAVE IN V1/V2] NONSPECIFIC T-WAVE ABNORMALITY Compared to ECG 05/15/2025 23:18:07 T-wave abnormality now present Myocardial infarct finding no longer present Electronically Signed On 05-25-2025 18:59:46 MAT TESTER by Gilberto Eugene M.D. [email or web address]
--- NOTE | 2025-05-25 01:00 | PC.NURSE ---
Pt is not compliant with vital signs at this time.
--- NOTE | 2025-05-25 01:26 | W.ED.ABDPA2 ---
HPI - Abdominal Pain General: Chief Complaint: Abdominal Pain Stated Complaint: Flank Pain Time Seen by Provider: 05/24/25 23:56 History of Present Illness: 39-year-old female extensive medical history significant for hypertension, ESRD on hemodialysis Saturday with minimal residual urine production, CAD with stents, neurogenic bladder, CHF, presenting the emergency department with acute on chronic pain to the bilateral flanks and abdomen, several days of watery diarrhea, no recent antibiotic use, reports episode of chest pain this evening that resolved soon after onset without treatment, history of C. difficile remotely in the past, seen yesterday for abdominal pain related symptoms and had workup consisting of an abdominal x-ray and lab work showing a mild hyperkalemia to 5.5 for which patient was given Kayexalate which reportedly exacerbated her diarrhea. Her predominant concern is her abdominal pain and is requesting pain medication for this, reports allergy to Tylenol and refusing NSAIDs due to her history of ESRD. Denies rectal bleeding, no vomiting, no fever. Related Data Home Medications ?Medication ?Instructions ?Recorded ?Confirmed gabapentin 100 mg capsule 100 mg PO TID 12/27/23 05/10/25 clopidogrel 75 mg tablet 75 mg PO DAILY 04/28/24 05/10/25 escitalopram oxalate 20 mg tablet 20 mg PO DAILY anxiety 02/14/25 05/10/25 folic acid 1 mg tablet 1 mg PO DAILY 02/14/25 05/10/25 hydralazine 25 mg tablet 12.5 mg PO BID 02/14/25 05/10/25 nitroglycerin 0.4 mg sublingual See Rx Instructions .Route .COMPLEX 02/22/25 05/10/25 tablet cyclobenzaprine 10 mg tablet 10 mg PO TID PRN MUSCLE SPASM 04/22/25 05/10/25 tramadol 50 mg tablet 50 mg PO DAILY 04/22/25 05/10/25 Previous Rx's ?Medication ?Instructions ?Recorded blood-glucose sensor (Dexcom G6 #3 ea 06/12/22 Sensor device) blood-glucose transmitter (Dexcom #1 ea 06/12/22 G6 Transmitter device) blood-glucose,necktie operator pockets and pieces,cont #1 ea 06/12/22 (Dexcom G6 Quilting Machine Operator) sevelamer carbonate 800 mg tablet 800 mg PO TID #90 tabs 09/16/23 aspirin 81 mg tablet,delayed 81 mg PO QAM 30 days #30 tabs 03/28/24 release atorvastatin 40 mg tablet 40 mg PO BEDTIME 30 days #30 tabs 03/28/24 AFO brace #1 ea 04/20/24 diabetic shoes with 3 inserts #1 ea 04/20/24 amlodipine 5 mg tablet 5 mg PO DAILY #30 tabs 09/30/24 insulin aspart U-100 100 unit/mL See Rx Instructions .Route 12/28/24 (3 mL) subcutaneous pen (Novolog .COMPLEX #15 mL FlexPen U-100 Insulin aspart) colchicine 0.6 mg tablet 0.6 mg PO DAILY #30 tabs 04/23/25 isosorbide mononitrate 60 mg 60 mg PO DAILY #30 tabs 04/23/25 tablet,extended release 24 hr metoclopramide HCl 5 mg tablet 5 mg PO Q8H PRN nausea and 05/23/25 (Reglan) vomiting #20 tabs sodium polystyrene sulfonate 15 15 g PO DAILY #150 grams 05/23/25 gram oral powder Allergies Allergy/AdvReac Type Severity Reaction Status Date / Time acetaminophen AdvReac Mild ADR-Gastrointestinal Verified 05/24/25 22:06 Upset [facility] ED PFSH: Medical History Insulin dependent diabetes mellitus with complications Chest pain Diabetes mellitus Primary hypertension HTN (hypertension), benign Hyperkalemia Headache Accelerated hypertension Uncontrolled type 1 diabetes mellitus ESRD (end stage renal disease) Dialysis complication Hypoglycemia Hemodialysis catheter dysfunction Colitis End stage renal disease on dialysis COPD (chronic obstructive pulmonary disease) Transaminitis Intractable nausea and vomiting Hyperlipidemia CHF (congestive heart failure), NYHA class III Pulmonary hypertension Coronary artery disease involving alutiiq heart with angina pectoris, unspecified vessel or lesion type Neurogenic bladder COVID-19 Tobacco dependence Drug abuse Anemia Community acquired pneumonia Esophagitis Long-term insulin use History of pancreatitis Celiac disease Recurrent UTI Non-alcoholic fatty liver disease Arnold-Chiari malformation Diabetic gastroparesis -continue Reglan Diabetic neuropathy associated with type 1 diabetes mellitus Headache, common migraine, intractable, with status migrainosus Pleural effusion 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 History of lung surgery -s/p LLL lobectomy secondary to cavitary pneumonia (2017) History of endoscopy History of cholecystectomy Family History Grandfather Diabetes Mother CAD (coronary artery disease) Diabetes Heart disease Hypertension Brother Acute lymphoblastic leukemia (ALL) in child Grandmother Thyroid disease Denies family history of Colon cancer Ovarian cancer Prostate cancer Hyperlipidemia Breast cancer Uterine cancer Stroke Social History Smoking and tobacco/nicotine status: former use of tobacco/nicotine Quit status (tobacco/nicotine): has quit using Former quit date comment: She previously smoked <1/2 PPD, quit July 2023. 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 [employer] Female Reproductive History: Spontaneous abortions: No Physical Exam Narrative: EXAM NARRATIVE: Gen: A&Ox4, no acute distress, nontoxic appearing HEENT: Normocephalic, atraumatic, no scleral icterus, external ears normal, moist mucous membranes Neck: Supple, full range of motion, no observable masses Lungs: No Respiratory distress, Lungs clear to auscultation bilaterally no rales, rhonchi, wheezing CV: Regular rate and rhythm, no murmur, no pitting edema to lower extremities bilaterally Abdomen: Soft, nondistended, nonspecific tenderness to palpation diffusely no rebound or guarding no distention MSK: No joint swelling, FROM all 4 extremities Skin: No rashes, petechiae, lesions. Normal color per patient. Neuro: Alert and oriented, no slurred speech, sensation and strength grossly intact all 4 extremities Psych: Appropriate for situation. Course Reevaluation(s): Reevaluation #1: Labs showing normalization of potassium from Kayexalate given yesterday, otherwise no acute pathology found, CT scan showing no acute pathology, mention of possible cystitis although patient has no symptoms to suggest UTI and makes minimal urine making this much less likely suspect secondary to her underlying chronic medical renal disease, stable for discharge with follow-up with PCP and pain management. Time: 02:31 Vital Signs: Vital signs: Vital Signs Temperature 98.2 F 05/24/25 21:56 Pulse Rate 82 05/24/25 21:56 Respiratory Rate 18 05/24/25 21:56 Blood Pressure 138/75 05/24/25 21:56 Pulse Oximetry 97 05/24/25 21:56 Oxygen Delivery Me thod Room Air 05/24/25 21:56 MDM - Abdominal Pain Medical Decision Making 39-year-old female extensive medical history most notable for CHF, diastolic heart failure, ESRD on dialysis with minimal urine output, presenting with acute on chronic back/flank/abdominal pain, resolved short duration of chest pain this evening, seen yesterday for abdominal pain related complaints and given Kayexalate for mild hyperkalemia with last dialysis on , on arrival patient has normal vital signs, nonperitoneal abdomen to exam, will obtain CT of the abdomen given persistent symptoms although relatively low concern for acute surgical abdominal pathology, 1 dose of IV opioids given patient's self-reported allergies, would anticipate that if no emergent pathology is found by blood work or CT imaging that would recommend patient follow-up with her PCP and outpatient pain management for her symptoms.. Lab Data Labs with normal potassium 4.5, creatinine 6.5 consistent with known history of ESRD, normal LFTs, negative 05/25/25 01:46 Labs/Radiology: Radiology Impressions Abdomen/Pelvis CT 05/25/25 00:03 IMPRESSION: 1. Cholecystectomy. 2. Wall thickening of the urinary bladder, concerning for UTI. Urinalysis recommended. 3. No nephrolithiasis, hydronephrosis, or obstructive uropathy. 4. Diverticulosis, without acute diverticulitis. No small bowel obstruction. No free air. Laboratory Results Sodium 143 mmol/L (136-145) 05/25/25 01:46 Potassium 4.5 mmol/L (3.5-5.1) 05/25/25 01:46 Chloride 100 mmol/L (98-107) 05/25/25 01:46 Carbon Dioxide 27 mmol/L (22-29) 05/25/25 01:46 Anion Gap 20.5 (5-19) H 05/25/25 01:46 BUN 43 mg/dL (6-20) H 05/25/25 01:46 Creatinine 6.5 mg/dL (0.5-0.9) H* 05/25/25 01:46 GFR Calculation 7.2 mL/min (90-130) L 05/25/25 01:46 Glucose 181 mg/dL (65-115) H 05/25/25 01:46 Calculated Osmolality 311 mOsm/kg (285-295) H 05/25/25 01:46 Calcium 8.4 mg/dL (8.5-10.5) L 05/25/25 01:46 Total Bilirubin 0.3 mg/dL (0.15-1.2) 05/25/25 01:46 AST 16 U/L (0-32) 05/25/25 01:46 ALT 22 U/L (0-33) 05/25/25 01:46 Alkaline Phosphatase 204 U/L (35-105) H 05/25/25 01:46 Total Protein 7.4 g/dL (6.6-8.7) 05/25/25 01:46 Albumin 3.9 g/dL (3.5-5.2) 05/25/25 01:46 Globulin 3.5 g/dL (1.3-4.6) 05/25/25 01:46 Lipase 46 U/L (13-60) 05/25/25 01:46 HCG, Qual Negative (Negative) 05/25/25 01:46 All radiology interpretation(s) finalized by discharge ED provider radiology interpretation(s): CT showing thickening of the urinary bladder no acute findings Discharge Plan Discharge Patient Disposition: Home Clinical Impression: Abdominal pain Condition: Stable Prescriptions: No Action (DME) AFO brace See Rx Instructions .Route .MEDSUPPLY Qty: 1 0RF Rx Instructions: As directed to the shoe guys (DME) diabetic shoes with 3 inserts See Rx Instructions .Route .MEDSUPPLY Qty: 1 0RF Rx Instructions: As directed to the shoe guys (DME) Dexcom G6 Quilting Machine Operator Misc See Rx Instructions .Route Qty: 1 0RF Rx Instructions: As directed (DME) Dexcom G6 Sensor Device See Rx Instructions .Route Qty: 3 0RF Rx Instructions: As directed (DME) Dexcom G6 Transmitter Device See Rx Instructions .Route Qty: 1 0RF Rx Instructions: As directed atorvastatin 40 mg tablet 40 mg PO BEDTIME 30 Days Qty: 30 0RF aspirin 81 mg tablet,delayed release (DR/EC) 81 mg PO QAM 30 Days Qty: 30 0RF amlodipine 5 mg Tablet 5 mg PO DAILY Qty: 30 0RF sodium polystyrene sulfonate 15 gram powder 15 g PO DAILY Qty: 150 0RF metoclopramide HCl [Reglan] 5 mg tablet 5 mg PO Q8H PRN (Reason: nausea and vomiting) Qty: 20 0RF sevelamer carbonate 800 mg Tablet 800 mg PO TID Qty: 90 0RF gabapentin 100 mg Capsule 100 mg PO TID clopidogrel 75 mg tablet 75 mg PO DAILY insulin aspart U-100 [Novolog FlexPen U-100 Insulin] 100 unit/mL (3 mL) insulin pen See Rx Instructions .ROUTE .COMPLEX Qty: 15 0RF Rx Instructions: Inject 3 times daily, subcut, after meals, based on low-dose sliding scale. hydralazine 25 mg tablet 12.5 mg PO BID folic acid 1 mg tablet 1 mg PO DAILY escitalopram oxalate 20 mg tablet 20 mg PO DAILY nitroglycerin 0.4 mg tablet, sublingual See Rx Instructions .ROUTE .COMPLEX Rx Instructions: DISSOLVE ONE TABLET UNDER THE TONGUE EVERY 5 MINUTES NEEDED FOR CHEST PAIN. DO NOT EXCEED A TOTAL OF 3 DOSES IN 15 MINUTES. tramadol 50 mg tablet 50 mg PO DAILY cyclobenzaprine 10 mg tablet 10 mg PO TID PRN (Reason: MUSCLE SPASM ) colchicine 0.6 mg tablet 0.6 mg PO DAILY Qty: 30 0RF isosorbide mononitrate 60 mg tablet extended release 24 hr 60 mg PO DAILY Qty: 30 0RF Discharge Orders: Discharge ED (Routine); Ordered 05/25/25 Ordered By: Brennan Garcia Referrals: Elizabeth Dougherty FNP [Primary Care Provider, Unknown] Patient Instructions: Abdominal Pain (ED), Patient Portal & [facility]aca Instructions Print Language: Ukrainian Coding Level of Care Code ED Journeyman Press Operator for Reji Chandler
[2025-05-25] MEDS: morphine 4 mg/mL SDV 1 mL IVP (01:54)
[2025-05-25 02:14] LABS: Alanine Aminotransferase 22 U/L (0-33); Albumin Level 3.9 g/dL (3.5-5.2); Alkaline Phosphatase 204 U/L (35-105); Aspartate Amino Transferase 16 U/L (0-32); Blood Urea Nitrogen 43 mg/dL (6-20); Calcium 8.4 mg/dL (8.5-10.5); Carbon Dioxide 27 mmol/L (22-29); Chloride 100 mmol/L (98-107); Globulin 3.5 g/dL (1.3-4.6); Glucose 181 mg/dL (65-115); HCG, Serum Qual Negative (Negative); Lipase 46 U/L (13-60); Osmolality Calculated 311 mOsm/kg (285-295); Sodium 143 mmol/L (136-145); Total Protein 7.4 g/dL (6.6-8.7)
[2025-05-25 02:15] LABS: Anion Gap 20.5 (5-19); Potassium 4.5 mmol/L (3.5-5.1)
== END 2025-05-25 03:26 | disposition home or self-care (01) ==
PROVIDERS: Emergency Provider Student in an Organized Health Care Education/Training Program; PCP Nurse Practitioner Family
DX: R10.9 Unspecified abdominal pain (principal); Z79.82 Long term (current) use of aspirin; Z79.4 Long term (current) use of insulin; Z87.891 Personal history of nicotine dependence; E10.22 Type 1 diabetes mellitus with diabetic chronic kidney disease; I13.2 Hypertensive heart and chronic kidney disease with heart failure and with stage 5 chronic kidney disease, or end stage renal disease; I50.9 Heart failure, unspecified; N18.6 End stage renal disease; Z99.2 Dependence on renal dialysis; E78.5 Hyperlipidemia, unspecified
CPT/HCPCS: 74176; 80053; 83690; 84703; 93005; 96374; 96375; 99285; J2270; J3490

== ENCOUNTER 2025-05-30 22:06 | Emergency (ER) | payer MEDICARE, MEDICAID, SELFPAY ==
[2025-05-30] VITALS (8 sets, daily range): BP systolic 110–147; BP diastolic 58–98; PULSE 72–77; RESP 15–18; TEMP 36.8; O2SAT 96–99; BMI 25.4
--- OUTSIDE RECORDS SUMMARY | 2025-05-30 22:12 | XMS_ITS | Clinical Summary ---
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 Gender Identity Not on file Sexual Orientation [...] VACCINES Completed 03/13/2000, 10/11/1999, 09/06/1999 HPV VACCINES (No Doses Required) Completed Medical Devices Implanted Type Area Manager Statistical Programming Device Identifier Shelf Expiration Date Model / Serial / Lot Max dailym Flour [id number] - [id number] Implanted:Qty: 2 on 12/17/2016 by Deandre Alan MD at [facility] Biological Left: Lung [employer] 09/19/2019 [id number] / / [id number] Control Implant Funmi Procedures Procedure Name Priority Date/Time Associated Diagnosis Comments HEMOGLOBIN A1C Routine 01/09/2017 2:52 AM CDT from Last 3 Months or Most Recently Relevant to Health Maintenance Results * (ABNORMAL) HEMOGLOBIN A1C (01/09/2017 2:52 AM CDT) HEMOGLOBIN A1C 8.9(H) 4.0 - 6.0 % 01/09/2017 1:31 PM CDT [facility] EST. AVG GLUCOSE, A1C 209 mg/dL 01/09/2017 1:31 PM CDT [facility] Blood 01/09/2017 2:52 AM CDT 01/09/2017 6:53 AM CDT Narrative [facility] - 01/09/2017 1:31 PM CDT Test performed on [employer] instrumentation using HPLC methodology us Izabela Diamond MD CHEMISTRY ORDERABLES Final Res ult [facility] CLIA# [id number] [address] [place] [address] from Last 3 Months or Most Recently Relevant to Health [place] [address] [facility] MEDICAID Advance Directives For more information, please contact: [phone] * Full Code (Latest Code Status on File) Date Activated Date Inactivated Comments 12/17/2016 1:05 PM 12/27/2016 11:32 PM Care Teams Data Processing Supervisor Relationship Specialty Start Date End Date Shravan Jones DO PCP - General Family Practice 12/04/16
--- OUTSIDE RECORDS SUMMARY | 2025-05-30 22:12 | XMS_ITS | Continuity of Care Document ---
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 X-ray of chest completed [facility], DonteLJacoboCJacobo 09/13/2024 14:57:51 08/24/[address] of chest completed [facility], LJacoboL.CJacobo 08/24/2024 12:28:02 04/28/20 24 plain X-ray of chest completed [facility] 04/30/2024 11:08:42 03/31/20 24 plain X-ray of chest completed [facility] 04/01/2024 14:05:05 03/27/20 24 imaging guided percutaneous transluminal angioplasty of coronary artery with contrast completed [facility], LJacoboLJacoboCJacobo 10/05/2024 10:23:19 02/28/20 24 radiographic procedure on chest and/or abdomen completed [facility], L.L.C[facility]obo 03/04/2024 15:02:31 02/28/[address] of abdomen completed [facility] 03/04/2024 15:03:26 01/19/20 24 diagnostic radiography of abdomen completed [facility], L.L.CJacobo 01/21/2024 17:26:25 01/06/20 24 plain X-ray of chest completed [facility] 01/07/2024 15:42:42 12/27/19 24 plain X-ray of chest completed [facility] 12/29/2023 23:23:06 12/27/19 24 CT of chest, abdomen and pelvis completed [facility], L.L.CJacobo 12/29/2023 23:32:58 12/24/19 24 plain X-ray of chest completed [facility] 12/29/2023 23:56:29 12/20/[address] of chest completed [facility], LJacoboLJacoboC. 12/21/2023 12:33:52 12/20/19 24 plain X-ray of chest completed [facility], LJacoboL.CJacobo 12/21/2023 12:34:44 12/09/19 24 plain X-ray of chest completed [facility] 12/12/2023 10:16:37 12/05/19 24 plain X-ray of chest completed [facility] 12/06/2023 13:24:46 11/28/19 24 cardiac catheterization completed [facility] 12/06/2023 13:11:07 11/28/19 24 imaging guided percutaneous transluminal angioplasty of coronary artery with contrast completed [facility] 10/05/2024 10:22:55 11/27/19 24 plain X-ray of chest completed [facility] 11/28/2023 10:19:35 10/24/19 24 imaging guided percutaneous transluminal angioplasty of coronary artery with contrast completed [facility] 10/05/2024 10:22:32 10/16/19 24 imaging guided percutaneous transluminal angioplasty of coronary artery with contrast completed RISHABH YOUNGER [facility], L.L.CJacobo 10/05/2024 10:22:12 10/07/19 24 plain X-ray of chest completed XIMENA KEATING [facility], LJacoboL.CJacobo 10/08/2023 17:52:40 09/20/19 24 echocardiography completed XIMENAMAHI KEATING [facility], LJacoboL.CJacobo 09/26/2023 12:48:56 lobectomy of lung completed XIMENA RISHABH [facility], LJacoboL.CJacobo 10/10/2023 12:32:47 amputation completed XIMENA RISHABH [facility], L.L.CJacobo 08/24/2024 12:24:04 cholecystectomy completed [facility], LJacoboL.CJacobo 09/13/2024 14:49:22 Imaging Results None recorded. Procedure Notes None recorded. Medical Equipment None Reported. Allergies Allergen ID Allergen Name Allergen Category Reaction Reaction Severity Criticality Documentation Date Start Date Code Code System Note Provider Name and Address Organization Details Recorded Time 40782 acetamino phen medicatio n abdominal pain moderate low 01/19/20232021 161 RxNorm [facility] upset [facility] 4 07:57:42 71139 acetamino phen medicatio n Not available Not available Not available 02/21/20242023 161 RxNorm NAJMA HOUSER, [facility] [address] [place], [address] [place] [address], L[facility] 5 16:14:16 84950 ranolazin e medicatio n Not available Not available Not available 04/14/2025 96397 RxNorm Todd silveira [facility] 5 11:33:58 Medications Name [...] DAILY FOR 90 DAYS FOR BLOOD PRESSURE 2024 active Not Available Not Available Not Avai lable aspirin 81 mg tablet,de layed release 81 [...] wanted her [facility] [place] 02/28 Not Available Not Available [...] TABLET BY MOUTH ONCE DAILY FOR ANXIETY 2024 active Not Available Not Available Not Avai lable insulin aspart (U-100) 100 unit/mL (3 mL) [...] times per day 10/09 completed VO CH/jl; 79906; Recorded 05/14/20 19 10:02AM by Leydi Jessica [...] Last Updated DateTime 152.4 cm 27.7 kg/m2 93384.1 2 g 98 % 80 /min 18 /min 136/80 mm[Hg] XIMENA KEATING [facility] 15:40:44 Social History Question Answer Notes LastModified by [employer] ion Details LastModified Time Tobacco Smoking Status Former Smoker Quit 07/2023 XIMENA KEATING [facility] 12/24/2023 12:30:16 What Type [...] 12/24/2023 What Is Your Relationship Status? Single [email or web address] Information not available 12/24/2023 At What Age [...] or recreational drugs? Yes Quit Meth 07/2023 [email or web address] Information not available 12/24/2023 Do you or have you ever used any other forms of tobacco or nicotine? No Information not available 12/24/2023 What is your level of alcohol consumption? None [email or web address] Information not available 10/10/2023 Are you currently employed? No disabled Information not available 10/10/2023 Are you able to walk independently without assistance or assistive devices? YESASSIST [email or web address] Information not available 10/10/2023 Are you able to care for yourself independently? No Mother is her caregiver. [email or web address] Information not available 10/10/2023 Do you or have you ever used any nicotine-free cigarettes, vape, or chewing tobacco? No Information not available 12/24/2023 Mental Status None recorded. Family History Relationship Description Onset Age of this Age Resolved Age Notes LastModified by Organization Details LastModified Time Mother Myocardial infarction In her 50's Not available 12/29/2023 23:44:26 Mother Rheumatoid arthritis [email or web address] Not available 12/28 23:44:44 Brother Acute lymphoid leukemia [email or web address] Not available 10/18 18:24:23 Medical History Condition Response Coronary Artery Disease Y COPD Y Depression Y Lung Disease Y Anxiety Disorder Y High Cholesterol Y Headaches Y Kidney Disease Y Heart Problems Y Hospitalizations Y Diabetes Y Heart Disease Y Hypertension Y Gynecological HistoryNo gynecological history recorded. Obstetrics History GPAL:G 0 P 0 0 0 0 Immunizations Vaccine Type Date Status Note Provider Nam e and Address Organization Details Recorded Time pneumococcal polysaccharide PPV23 8 completed SUZANNE HEATON [address] [place] [address], [address], [facility], Billie 12/24/2023 12:51:09 Past Encounters Encounter ID Performer Location Encounter Start Date Encounter Closed Date Diagnosis/Indication Diagnosis SNOMED-CT Code Diagnosis ICD10 Code Diagnosis IMO Codes Diagnosis Note [id number] SUZANNE HEATON [facility] ([facility] [address] [place] [address] 04/14/2025 11:22:24 04/14/2025 14:24:51 Chronic chest pain 7828117064 51499 R07.9 G89.29 081212 Essential hypertension 77424225 I10 67161 Took her blood pressure medication about an hour ago. Pressure at home has been pretty good. Type 1 mainor betes mellitus 68080144 E10.[address] Ortega. Will schedule pump training with patient on a MWF. Will have aoc plans intelligence officer set up a time where she can use an exam room here. [id number] SUZANNE HEATON [facility] ([facility]) [address] [place] [address] 05/05/2025 14:52:32 05/05/2025 16:30:15 Pain of knee region 5443641452 M25.569 Chest pain 90434631 R07. 9 817443 Recurrent. Following with cardiology . Recently started colchicine daily and it has been helpful. Chronic ki dney disease stage 5 857496573 N18.5 Z99.2 Currently on dialysis. Generalize d anxiety disorder 31410036 F41.1 74350 Unable to lay still for MRI. Will [...] 05/05/2025 1 [place] Donita Aguilar [id number] Donita Aguilar 05/05/2025 2 [place] Donita Aguilar [id number] Donita Aguilar Notes Date Note Type Note Provider Name and Address Organization Details Recorded Time 05/05/2025 text/html Generalized Anxi ety DisorderReported by Patient Joint PainReported by PatientHPIFor quality, patient reportsdull. For location, patient reportsleft knee. For severity, patient reportsno change. For duration, patient reportspresent <1 month. For timing, patient reportsconstant. SUZANNE HEATON [address] [place] [address], [phone], [facility], LJolene 05/06/2025 10:11:39 OBGyn Episode No OBEpisode recorded.
--- OUTSIDE RECORDS SUMMARY | 2025-05-30 22:12 | XMS_ITS ---
Laboratory report Created on: May 25, 2025 HUI ALLRED : 1985 Sex: Female Author Name ELDON VOGT [employer] Unknown PROBLEMS Problems List Code Description D64.9 RESULTS Laboratory Orders Date Order Code Test 2024-09-25 [id number] METHYLMALONIC AC ID, SERUM 2024-09-25 594002 THYROXINE (T4) F REE, DIRECT 2024-09-25 [id number] SOLUBLE TRANSFER RIN RECEPTOR Laboratory Results Date LOINC Test Value Unit Reference Range Interpre tation 2024-09-25 09287-9 METHYLMALONIC AC ID, SERUM 1100 NMOL/L 0-378 H 2024-09-25 3024-7 T4,FREE(DIRECT) 1.08 NG/DL 0.82-1.77 2024-09-25 40903-0 SOLUBLE TRANSFER RIN RECEPTOR 16.5 NMOL/L 12.2-27.3
--- OUTSIDE RECORDS SUMMARY | 2025-05-30 22:12 | XMS_ITS ---
Laboratory report Created on: May 25, 2025 HUI ALLRED : 1985 Sex: Female Author Name ELDON VOGT Organization Unknown PROBLEMS Problems List Code Description D64.9 RESULTS Laboratory Orders Date Order Code Test 2024-09-25 [id number] RNA, REAL TIME P CR (GRAPH) Laboratory Results Date LOINC Test Value Unit Reference Range Interpre tation 2024-09-25 20748-6 PDF IMAGE
--- OUTSIDE RECORDS SUMMARY | 2025-05-30 22:12 | XMS_ITS | Continuity of Care Document ---
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 [facility], L.L.CJacobo 03/04/2024 15:03:26 01/19/20 24 diagnostic radiography of abdomen completed [facility], LJacoboL.C. 01/21/2024 17:26:25 01/06/20 24 plain X-ray of chest completed [facility], LJacoboL.CJacobo 01/07/2024 15:42:42 12/27/19 24 plain X-ray of chest completed [facility] 12/29/2023 23:23:06 12/27/[address] of chest, abdomen and pelvis completed [facility], L.L.CJacobo 12/29/2023 23:32:58 12/24/19 24 plain X-ray of chest completed [facility], L.L.CJacobo 12/29/2023 23:56:29 12/20/[address] of chest completed [facility], L.L.CJacobo 12/21/2023 12:33:52 12/20/19 24 plain X-ray of chest completed [facility], LJacoboL.CJacobo 12/21/2023 12:34:44 12/09/19 24 plain X-ray of chest completed [facility], L.L.CJacobo 12/12/2023 10:16:37 12/05/19 24 plain X-ray of chest completed [facility] 12/06/2023 13:24:46 11/28/19 24 cardiac catheterization completed [facility] 12/06/2023 13:11:07 11/28/19 24 imaging guided percutaneous transluminal angioplasty of coronary artery with contrast completed [facility], L.L.CJacobo 10/05/2024 10:22:55 11/27/19 24 plain X-ray of chest completed [facility] 11/28/2023 10:19:35 10/24/19 24 imaging guided percutaneous transluminal angioplasty of coronary artery with contrast completed [facility], L.L.CJacobo 10/05/2024 10:22:32 10/16/19 24 imaging guided percutaneous transluminal angioplasty of coronary artery with contrast completed [facility], [place] 10/05/2024 10:22:12 10/07/19 24 plain X-ray of chest completed XIMENA KEATING [facility], [place] 10/08/2023 17:52:40 09/20/19 24 echocardiography completed XIMENAMAHI KEATING [facility], [place] 09/26/2023 12:48:56 lobectomy of lung completed XIMENA RISHABH [facility], [place] 10/10/2023 12:32:47 amputation completed XIMENAMAHI KEATING [facility], [place] 08/24/2024 12:24:04 cholecystectomy completed XIMENAMAHI EKATING [facility], [place] 09/13/2024 14:49:22 Imaging Results None recorded. Procedure Notes None recorded. Medical Equipment None Reported. Allergies Allergen ID Allergen Name Allergen Category Reaction Reaction Severity Criticality Documentation Date Start Date Code Code System Note Provider Name and Address Organization Details Recorded Time 56034 acetamino phen medicatio n abdominal pain moderate low 01/19/20232021 161 RxNorm GI upset /into leran ce Anh coles [facility], DonteLSanju 4 07:57:42 30549 acetamino phen medicatio n Not available Not available Not available 02/21/20242023 161 RxNorm NAJMA HOUSER, [address], [address] , [facility], LJacoboLJacoboCJacobo 5 16:14:16 51748 ranolazin e medicatio n Not available Not available Not available 04/14/2025 59760 RxNorm Hallu cinat ions [facility] 5 11:33:58 Medications Name Sig Start [...] wanted her to decrease to 100mg TID [facility], 02/27 and 02/28 Not Available [...] times per day 10/09 completed VO CH/jl; 98226; Recorded 05/14/20 19 10:02AM by Leydi Jessica [...] USE DIRECTED . CHANGE EVERY 10 DAYS 08/27/ 2024 10/09 /2024 completed Not Available Not Available Not Available [...] Last Updated DateTime 152.4 cm 27.7 kg/m2 89182.1 2 g 99 % 88 /min 18 /min 166/108 mm[Hg] 158/98 mm[Hg] XIMENA KEATING [facility] 11:38:18 Social History Question Answer Notes LastModified by InOpen Details LastModified Time Tobacco Smoking Status Former Smoker Quit 07/2023 XIMENA KEATING [facility] 12/24/2023 12:30:16 What Type Of Diet Are You Following? REGULAR Information not available 12/24/2023 Which Illicit Or Recreational Drugs Have You Used? Smokes Meth [email or web address] Information not available 10/10/2023 When Did You Quit Smoking? 1-5yearssin celastcigar ette Information not available 12/24/2023 What Was The Date Of Your Most Recent Tobacco Screening? 12/24/2023 Information not available 12/24/2023 What Is Your Current Pack Years? 20-29packye ars Information not available 12/24/2023 What Is Your Relationship Status? Single [email or web address] Information not available 12/24/2023 At What Age Did You Start Smoking Tobacco? 19 Information not available 12/24/2023 How Much Tobacco Do You Smoke? No Information not available 12/24/2023 How Many Years Have You Smoked Tobacco? 20 Information not available 12/24/2023 Sex: Unknown Functional Status Question Answer Note LastModified by [employer] ion Details LastModified Time Do you use any illicit or recreational drugs? Yes Quit Meth 07/2023 [email or web address] Information not available 12/24/2023 Do you or have you ever used any other forms of tobacco or nicotine? No Information not available 12/24/2023 What is your level of alcohol consumption? None Information not available 10/10/2023 Are you currently employed? No disabled [email or web address] Information not available 10/10/2023 Are you able to walk independently without assistance or assistive devices? YESASSIST Information not available 10/10/2023 Are you able to care for yourself independently? No Mother is her caregiver. [email or web address] Information not available 10/10/2023 Do you or have you ever used any nicotine-free cigarettes, vape, or chewing tobacco? No Information not available 12/24/2023 Mental Status None recorded. Family History Relationship Description Onset Age of this Age Resolved Age Notes LastModified by Organization Details LastModified Time Mother Myocardial infarction In her 50's [email or web address] Not available 12/29/2023 23:44:26 Mother Rheumatoid arthritis [email or web address] Not available 12/28 23:44:44 Brother Acute lymphoid leukemia [email or web address] Not available 10/18 18:24:23 Medical History Condition [...] polysaccharide PPV23 8 completed SUZANNE HEATON [address] [place], [address], [facility], [place] 12/24/2023 12:51:09 Past Encounters Encounter ID Performer Location Encounter Start Date Encounter Closed Date Diagnosis/Indication Diagnosis SNOMED-CT Code Diagnosis ICD10 Code Diagnosis IMO Codes Diagnosis Note [id number] SUZANNE HEATON [facility] ([facility] [address] [place] [address] 03/31/2025 10:56:17 03/31/2025 12:04:26 Chronic chest pain 4098028095 57106 R07.9 G89.29 137205 Spasm 84734593 M62.838 Pain in bi lateral legs 0524777107 0852458 M79.604 M79.605 Site-speci fic infective disorders of skin 890527806 L08.9 16331 right index finger Chronic pain syndrome 37 0872420 G89.4 56693 Gabapentin . [id number] SUZANNE HEATON [facility] ([facility]) [address] [place] [address] 04/14/2025 11:22:24 04/14/2025 14:24:51 Chronic chest pain 4396678474 76000 R07.9 G89.29 455559 Essential hypertension 99324617 I10 47429 Took her blood pressure medication about an hour ago. Pressure at home has been pretty good. Type 1 mainor betes mellitus 12146859 E10.[address] Ortega. Will schedule pump training with patient on a MWF. Will have ski patrol officer set up a time where she can use an exam room here. Health Concerns Section Related Observation LastModified by Organization Detai ls LastModified Time None Recorded Concern Status LastModified by Organization Details LastModified Time None Recorded Payers Encounter Date Sequence Insurance Name Policy Number Policy Varela Covered Member ID Varela Member ID Guarantor Name 04/14/2025 1 [place] Donita Aguilar [id number] Donita Aguilar 04/14/2025 2 [place] Donita Aguilar [id number] Donita Aguilar Notes Date Note Type Note [...] disease history, patient reportshistory of pulmonary disease. NAJMA HOUSER, [facility] [address] [place], [address], [facility], [place] 04/14/2025 14:09:54 OBGyn Episode No OBEpisode recorded.
--- OUTSIDE RECORDS SUMMARY | 2025-05-30 22:13 | XMS_ITS | Encounter Summary ---
Author Organization [facility] Address [address] [place] [address] Care Team Providers Care Door Furring Installer Name Role Phone Shravan Jones DO Primary Care Provider Encounter Details Date Type Department Care Team (Late st Contact Info) Description 12/28/2016 Lab Requisition [facility] Laboratory Services [address] [place] [address] David Ortega MD [address] [place] [address] Social History Tobacco Use Types Packs/Day Years Used Date Smoking Tobacco: Every Day Cigarettes Comments:pt lethargic Comments Unknown Sex and Gender Information Value Date Recorded Sex Assigned at Not on file Legal Sex Female 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 Gender Identity Not on file Sexual Orientation [...] PHOSPHORUS (12/28/2016 2:39 AM CDT) Pathologist [facility] PHOSPHORUS 3.4 2.5 - 4.9 mg/dL 12/28/2016 5:42 AM CDT [facility] Blood Collection / Unknown 12/28/2016 2:39 AM CDT 12/28/2016 5:01 AM CDT David Ortega MD CHEMISTRY ORDERABLES Final Res ult Performing Organization Address [facility] Co de Phone Number [facility] CLIA# [id number] [address] [place] [address] [id number] * MAGNESIUM LEVEL (12/28/2016 2:39 AM CDT) [facility] MAGNESIUM 1.6 1.6 - 2.6 mg/dL 12/28/2016 5:42 AM CDT [facility] Blood Collection / Unknown 12/28/2016 2:39 AM CDT 12/28/2016 5:01 AM CDT Narrative [facility] - 12/28/2016 5:42 AM CDT Due to Bench Shear Operator update, MG+ reference range has changed from 1.8 - 2.4 mg/dL to the new reference range of 1.6 - 2.6 mg/dL. This will have limited patient impact. David Ortega MD CHEMISTRY ORDERABLES Final Res ult Performing Organization Address [facility] Co de Phone Number [facility] CLIA# [id number] [address] [place] [address] * PROTIME-INR (12/28/2016 2:39 AM CDT) [facility] PROTIME 15.0 12.3 - 15.5 Seconds [...] Goal INR 3.0; range 2.5 - 3.5 POST-NM Goal INR 2.5; range 2.0 - 3.0 or Goal INR 3.0; range 2.5 - 3.5 Atrial Fibrillation Goal INR 2.5; range 2.0 - 3.0 Ischemic Stroke Goal INR 2.5; range 2.0 - 3.0 For additional information see Guidelines for Anticoagulation available from the pharmacy Wendy Vargas Pharm D. David Ortega MD HEMATOLOGY ORDERABLES Final Re sult [facility] CLIA# [id number] [address] [place] [address] * (ABNORMAL) PTT (12/28/2016 2:39 AM CDT) [...] sult [facility] CLIA# [id number] [facility] [place] [address] * (ABNORMAL) CBC WITH DIFFERENTIAL (12/28/2016 2:39 AM CDT) Pathologist [facility] WBC 11.0 4.5 - 11.0 K/uL 12/28/2016 5:09 AM CDT [facility] RBC 3.80(L) 4.20 - 5.40 M/uL 12/28/2016 5:09 AM CDT [facility] HEMOGLOBIN 9.3(L) 12.0 - 16.0 g/dL 12/28/2016 5:[facility] [address] [facility] 30.6(L) 36.0 - 46.0 % 12/28/2016 [...] sult [facility] CLIA# [id number] [address] [place] [address] * (ABNORMAL) COMPREHENSIVE METABOLIC PANEL (12/28/2016 2:39 AM CDT) SODIUM 143 136 - 145 mmol/L 12/28/2016 5:47 AM CDT [facility] POTASSIUM 3.3(L) 3.5 - 5.1 mmol/L 12/28/2016 5:47 AM [facility] CHLORIDE 103 98 - 107 mmol/L 12/28/2016 5:47 AM [facility] CO2 29 21 - 32 mmol/L 12/28/2016 5:47 AM [facility] CALCIUM 8.9 8.4 - 10.1 mg/dL 12/28/2016 5:47 AM [facility] BUN 13 7 - 17 mg/dL 12/28/2016 5:47 AM [facility] CREATININE 0.70 0.55 - 1.02 mg/dL 12/28/2016 5:47 AM [facility] GLUCOSE 46(LL) 74 - 106 mg/dL 12/28/2016 5:47 AM [facility] TOTAL PROTEIN 8.2 6.4 - 8.2 g/dL 12/28/2016 5:47 AM [facility] ALBUMIN 1.8(L) 3.4 - 5.0 g/dL 12/28/2016 5:47 AM [facility] BILIRUBIN TOTAL 0.2 0.2 - 1.0 mg/dL 12/28/2016 5:47 AM [facility] ALKALINE PHOSPHATASE 93 25 - 100 U/L 12/28/2016 5:47 AM [facility] AST 18 15 - 37 U/L 12/28/2016 5:47 AM [facility] ALT 18 13 - 61 U/L 12/28/2016 5:47 AM [facility] GFR >60 >=60 mL/min/1.7 3 sq meter 12/28/2016 5:47 AM [facility] Comment: eGFR has not been [...] 3 sq meter 12/28/2016 5:47 AM CDT [facility] ANION GAP 11 4 - 30 mmol/L 12/28/2016 5:47 AM CDT [facility] Blood Collection / Unknown 12/28/2016 2:39 AM CDT 12/28/2016 5:01 AM CDT us David Ortega MD CHEMISTRY ORDERABLES Final Res ult [facility] CLIA# [id number] [address] [place] [address] documented in this encounter Visit Diagnoses Not on filedocumented in this encounter Care Teams Door Furring Installer Relationship Specialty Start Date End Date Shravan Jones DO PCP - General Family Practice 12/04/16 documented as of this encounter
--- OUTSIDE RECORDS SUMMARY | 2025-05-30 22:13 | XMS_ITS | Clinical Summary ---
Author Organization [employer] Address [address] [facility] Attn: [place] [address] Care Team Providers Care Dairy Equipment Repairer Name Role Phone Shravan Jones DO [...] subcutaneous injection. Active naloxone (NARCAN) 4 mg/spray [place], Non-Aerosol EMERGENCY USE ONLY: Administer 1 spray [...] regarding vascular access for dialysis for ESRD ([facility]) Take 1 Tablet (5 mg) by [...] troponin 09/22/2023 Coronary artery disease invo lving lumbee coronary artery of lumbee heart without angina pectoris 09/21/2023 End stage [...] and Family Not on file 09/22/2023 Attends [employer] Services Not on file 09/21 Active Member [...] on file Legal Sex Female 3:34 PM CARTOGRAPHY/MAPPING TECHNICIAN Gender Identity Not on file Sexual [...] st Contact Info) Description 08/18/2025 11:00 AM CARTOGRAPHY/MAPPING TECHNICIAN Office Visit [facility] Gastroenterology- Dl [address] [place] [address] Kellee Garcia NP [address] [facility] [address] [place] [address] Health Maintenance Due Date Last [...] 10/11/1999, 09/06/1999 Medical Devices Implanted Type Area Signal Repairer Device Identifier Shelf Expiration Date Model / Serial / Lot Max 1gm Flour [id number] - [id number] Implanted:Qty : 2 on 12/17/2016 by Deandre Alan MD Biological Left: Lung CR BARD- DAVOL INC 09/19/2019 [id number] / / [id number] Cath Dialysis Glidepath 14.5fr 24cm Std [id number] - [id number] Implanted:Qty : 1 on 03/18/2024 by Asif Mcclellan MD at [facility] Catheter Right: Chest BARD ANGEL VASC 09/21/2025 [id number] / / [id number] Clip Ligating Horizon Red 398795 - Csc - [id number] Implanted:Qty : 1 on 08/10/2024 by Chato Fitch MD at [facility] Clip Left: Arm TELE[employer]LEX INC [id number] 05/16/2029 [id number] / / [id number] Clip Ligating Horizon Med Ti 160645 - Csc - [id number] Implanted:Qty : 1 on 08/10/2024 by Chato Fitch MD at [facility] Clip Left: Arm TELEFLEX- WECK CLOSURE SYS [id number] 03/31/2029 [id number] / / [id number] Staple Fiber Washer Ligaclip Sml Mcs20 - [id number] Implanted:Qty : 1 on 08/10/2024 by Chato Fitch MD at [facility] Clip Left: Arm J&J- ETHICON ENDO[employer]SURGERY INC [id number] 03/23/2029 MCS20 / / [id number] Closure Perclose Prostyle Sut Mediate 78642-32 - [id number] Implanted:Qty : 1 on 09/24/2023 by Janell Beauchamp MD at [facility] Closure Device N/A: Groin LOVE- VASC DEVICE [id number] 06/23/2025 04541-92 / / [id number] Closure Perclose Prostyle Sut Mediate 45897-13 - [id number] Implanted:Qty : 1 on 10/24/2023 by Janell Beauchamp MD at [facility] Closure Device Right: Groin LOVE- VASC DEVICE [id number] 07/24/2025 70053-94 / / [id number] Oil Slc 8.5ml [id number] - Sgtin:[id number] Implanted:Qty : 1 on 06/23/2024 by Janey Carrera MD at [facility] Eye Right: Eye [facility] 12/21/2026 [id number] / GTIN:[id number] / [id number] Graft Vasc Propaten 4-8llc82zr [id number] - [id number] Implanted:Qty : 1 on 08/10/2024 by Chato Fitch MD at [facility] Graft Left: Arm [employer] [id number] 05/21/2027 [id number] / [id number] / Agent Hemostat Surgicel 2x3in 1952s - [id number] Implanted:Qty : 1 on 08/10/2024 by Chato Fitch MD at [facility] Hemostatic Left: Arm J&J- ETHICON INC [id number] 12/21/20283S / / [id number] Hemostatic Surgiflo 8ml W/ Thrombin 2994 - [id number] Implanted:Qty : 1 on 08/10/2024 by Chato Fitch MD at [facility] Hemostatic Left: Arm J&J- ETHICON INC [id number] 10/21/2025 2994 / / [id number] Agent Hemostat Surgicel 2x3in 1952s - [id number] Implanted:Qty : 1 on 08/10/2024 by Chato Fitch MD at [facility] Hemostatic Left: Arm J&J- ETHICON INC [id number] 12/21/20281952S / / [id number] Stent Synergy Xd 3.0x48mm Evrlms Elut [id number] 0 - [id number] Implanted:Qty : 1 on 09/24/2023 by Janell Beauchamp MD at [facility] Stent N/A: Coronary [employer]OST[employer]E [id number] 03/31/2025 [id number] 300 / / [id number] Stent Synergy Xd 2.17v27fq Evrlms Elut [id number] 0 - [id number] Implanted:Qty : 1 on 10/24/2023 by Janell Beauchamp MD at [facility] Stent Left: Coronary [employer] [id number] 08/19/2024 [id number] 220 / / [id number] Control Implant Funmi Procedures Procedure Name Priority Date/Time Associated Diagnosis Comments LIPID PANEL Routine 09/21/2023 6:47 PM CDT HEMOGLOBIN A1C Routine 09/21/2023 6:46 PM CDT from Last 3 Months or Most Recently Relevant to Health Maintenance Results * (ABNORMAL) LIPID PANEL (09/21/2023 6:47 PM CDT) CHOLESTEROL 96 <200 mg/dL 09/21/2023 10:29 PM CDT [facility] TRIGLYCERIDE 164(H) <150 mg/dL 09/21/2023 10:29 PM CDT [facility] HDL 36(L) 40 - 59 mg/dL 09/21/2023 10:29 PM CDT [facility] LDL CALCULATED 27 <100 mg/dL 09/21/2023 10:29 PM CDT [facility] NON-HDL CHOLESTEROL 60 <130 mg/dL 09/21/2023 10:29 PM T [facility] Blood Venipuncture / Unknown 09/21/2023 6:47 PM CDT 09/21/2023 7:10 PM CDT Narrative [facility] - 09/21/2023 10:29 PM [...] Lacy MD CHEMISTRY ORDERABLES Final R esult [facility] CLIA # [id number] [address] [place] [address] * (ABNORMAL) HEMOGLOBIN A1C (09/21/2023 6:46 PM CDT) HEMOGLOBIN A1C 6.8(H) <=5.6 % 09/23/2023 9:24 AM CDT [facility] EST. AVG GLUCOSE, A1C 148 mg/dL 09/23/2023 9:24 AM CDT [facility] Blood Venipuncture / Unknown 09/21/2023 6:46 PM CDT 09/21/2023 7:08 PM CDT Narrative [facility] - 09/23/2023 9:24 AM CDT HGB A1C INTERPRETATION NORMAL: <5.7% PRE-DIABETES: 5.7 - 6.4% DIABETES: 6.5% OR GREATER Luiz Lacy MD CHEMISTRY ORDERABLES Final R esult [facility] CLIA # [id number] [address] from Last 3 Months or Most Recently Relevant to Health Maintenance Insurance MEDICAID [place] MEDICARE PART A [place] B Advance Directives For more information, please contact: [phone] * Full Code (Latest Code Status on File) Date Activated Date Inactivated Comments 10/24/2023 2:34 PM 10/25/2023 11:47 AM * Full Code Date Activated Date Inactivated Comments 10/24/2023 9:13 AM 10/24/2023 2:34 PM * Full Code Date Activated Date Inactivated Comments 09/24/2023 3:14 PM 09/25/2023 9:51 PM * Full Code Date Activated Date Inactivated Comments 09/21/2023 5:50 PM 09/24/2023 3:14 PM Care Teams Dairy Equipment Repairer Relationship Specialty Start Date End Date Shravan Jones DO PCP - General Family Practice 12/04/16
--- OUTSIDE RECORDS SUMMARY | 2025-05-30 22:13 | XMS_ITS ---
Laboratory report Created on: May 25, 2025 CHALINO HUI : 1985 Sex: Female Author Name ELDON VOGT [email or web address] Unknown PROBLEMS Problems List Code Description D64.9 RESULTS Laboratory Orders Date Order Code Test 2025-02-05 [id number] SOLUBLE TRANSFER RIN RECEPTOR 2025-02-05 [id number] METHYLMALONIC AC ID, SERUM 2025-02-05 [id number] HOMOCYST(E)INE Laboratory Results Date LOINC Test Value Unit Reference Range Interpre tation 2025-02-05 [id number] SOLUBLE TRANSFER RIN RECEPTOR 10.4 NMOL/L 12.2-27.3 L 2025-02-05 [id number] METHYLMALONIC AC ID, SERUM 696 NMOL/L 0-378 H 2025-02-05 [id number] HOMOCYST(E)INE 15.6 UMOL/L 0.0-14.5 H
--- OUTSIDE RECORDS SUMMARY | 2025-05-30 22:13 | XMS_ITS | Encounter Summary ---
Author Organization [facility] Address [address] [place] [address] Care Team Providers Care Recorder Gravity Prospecting Name Role Phone Shravan Jones DO Primary Care Provider [phone]- [phone] Encounter Details Date Type Department Care Team (Latest Contact Info) Description 05/14/2003 Outpatient [facility] Oral and Maxillo Surgery[address] [place] [address] Jimmy Tineo, CLIVES NO ADDRESS ON FILE UNSPEC DENTAL CARIES (Primary Dx); TOOTH POSITION ANOMALY Social History Tobacco Use Types Packs/Day Years Used Date Smoking Tobacco: Never Assessed Comments Unknown Sex and Gender Information Value Date Recorded Sex Assigned at Not on file Legal Sex Female 4:38 AM 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
--- OUTSIDE RECORDS SUMMARY | 2025-05-30 22:13 | XMS_ITS | Encounter Summary ---
Author Organization [facility] Address [address] [place] [address] Care Team Providers Care Shooting Gallery Operator Name Role Phone Shravan Jones DO Primary Care Provider [phone]- [phone] Encounter Details Date Type Department Care Team (Late st Contact Info) Description 01/07/2017 Lab Requisition [facility] Laboratory Services [address] [place] [address] Izabela Diamond MD NO ADDRESS ON FILE Social History Tobacco Use Types Packs/Day Years Used Date Smoking Tobacco: Every Day Cigarettes Comments:pt lethargic Comments Unknown Sex and Gender Information Value Date Recorded Sex Assigned at Not on file Legal Sex Female 4:38 AM MID LEVEL DEVELOPER Gender Identity Not on file Sexual Orientation [...] - 40 mg/dL 01/07/2017 5:27 AM CDT [facility] Blood 01/07/2017 2:23 AM CDT 01/07/2017 5:01 AM CDT Izabela Diamond MD CHEMISTRY ORDERABLES Final Res ult Performing Organization Address City/[facility]/ZIP Co de Phone Number [facility] CLIA# [id number] [address] [place] [address] * (ABNORMAL) C-REACTIVE PROTEIN (01/07/2017 2:23 AM CDT) CRP 16.6(H) 0.0 - 2.9 mg/L 01/07/2017 5:27 AM CDT [facility] Blood 01/07/2017 2:23 AM CDT 01/07/2017 5:01 AM CDT Izabela Diamond MD CHEMISTRY ORDERABLES Final Res ult Performing Organization Address [facility] Co de Phone Number [facility] CLIA# [id number] [address] [place] [address] * (ABNORMAL) BASIC METABOLIC PANEL (01/07/2017 2:23 AM CDT) SODIUM 139 136 - 145 mmol/L 01/07/2017 5:27 AM CDT [facility] [employer] [facility] POTASSIUM 4.1 3.5 - 5.1 mmol/L 01/07/2017 5:27 AM CDT [facility] [employer] [facility] CHLORIDE 104 98 - 107 mmol/L 01/07/2017 5:27 AM CDT [facility] [employer] [facility] CO2 26 21 - 32 mmol/L 01/07/2017 5:27 AM CDT [facility] [employer] [facility] CALCIUM 9.1 8.4 - 10.1 mg/dL 01/07/2017 5:27 AM CDT [facility] [employer] [facility] BUN 14 7 - 17 mg/dL 01/07/2017 5:27 AM CDT [facility] CREATININE 0.82 0.55 - 1.02 mg/dL 01/07/2017 5:27 AM T [facility] GLUCOSE 274(H) 74 - 106 mg/dL 01/07/2017 5:27 AM T [facility] GFR >60 >=60 mL/min/1.7 3 sq meter 01/07/2017 5:27 AM T [facility] Comment: eGFR has not [...] 3 sq meter 01/07/2017 5:27 AM T [facility] ANION GAP 9 4 - 30 mmol/L 01/07/2017 5:27 AM [facility] Blood 01/07/2017 2:23 AM CDT 01/07/2017 5:01 AM CDT us Izabela Diamond MD CHEMISTRY ORDERABLES Final Res ult [facility] CLIA# [id number] [address] [place] [address] * (ABNORMAL) CBC WITH DIFFERENTIAL (01/07/2017 2:23 AM CDT) WBC 9.3 4.5 - 11.0 K/uL 01/07/2017 5:27 AM CDT [facility] RBC 4.19(L) 4.20 - 5.40 M/uL 01/07/2017 5:27 AM CDT [facility] HEMOGLOBIN 10.3(L) 12.0 - [...] - 0.60 K/uL 01/07/2017 5:27 AM CDT [facility] EOSINOPHIL ABSOLUTE 1.01(H) 0.00 - 0.70 K/uL 01/07/2017 5:27 AM CDT [facility] BASOPHILS ABSOLUTE 0.11 0.00 - 0.20 K/uL 01/07/2017 5:27 AM CDT [facility] IMMATURE GRANULOCYTES ABSOLUTE 0.04 0.00 - 0.10 K/uL 01/07/2017 5:27 AM CDT [facility] Blood 01/07/2017 2:23 AM CDT 01/07/2017 5:01 AM CDT us Izabela Diamond MD HEMATOLOGY ORDERABLES Final Re sult [facility] CLIA# [id number] [address] [place] [address] documented in this encounter Visit Diagnoses Not on filedocumented in this encounter Care Teams Shooting Gallery Operator Relationship Specialty Start Date End Date Shravan Jones DO PCP - General Family Practice 12/04/16 documented as of this encounter
--- OUTSIDE RECORDS SUMMARY | 2025-05-30 22:13 | XMS_ITS | Encounter Summary ---
Author Organization [facility] Address [address] [place] [address] Care Team Providers Care Embossing Unit Operator Name Role Phone Shravan Jones DO Primary Care Provider [phone]- [phone] Encounter Details Date Type Department Care Team (Late st Contact Info) Description 12/12/2016 Nurse Only [facility] 4D Surgery Heart Lung [address] 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
--- OUTSIDE RECORDS SUMMARY | 2025-05-30 22:13 | XMS_ITS | Data Portability ---
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 stage renal failure on dialysis 140697939 Active 2023 ELIZABETH HOUSER, [facility] [address] [place], [address], [facility] 5 16:14:26 Esophagi tis 03658348 Active 2024 XIMENA coles [facility] 5 18:23:17 Chronic pain 08584987 Active 2024 Davian Ren MD [address] [place], [address], [facility], LJacoboLJacoboCJacobo 09:12:38 Generali zed anxiety disorder 74668862 Active 2024 ELIZABETH HOUSER, [facility] [address] [place], [address], [facility], Billie 16:12:14 Notes:Some problems listed i n Documents: #[id number], #[id number], #[id number], #[id number] could not be added to this patient's chart. Please review these documents and add these problems to the patient's chart manually as needed. Problem Notes None recorded. Procedures Surgical History Date Name Laterality Status Provider Name and Address Organization Details Recorded Time 04/28/20 25 plain X-ray of left knee region completed [facility], [place] 05/05/2025 15:02:31 04/22/20 25 plain X-ray of chest completed [facility], KaelynCJacobo 04/26/2025 19:04:48 04/07/20 25 plain X-ray of chest completed [facility], [place] 04/08/2025 12:01:33 03/28/20 25 plain X-ray of chest completed [facility], [place] 03/31/2025 11:10:09 03/21/20 25 plain X-ray of chest completed [facility], LJacoboLJacoboCJacobo 03/31/2025 11:07:12 03/04/20 25 plain X-ray of chest completed [facility], KaelynCJacobo 03/31/2025 11:09:47 12/27/[address] of chest completed [facility], KaelynCJacobo 12/27/2024 14:20:38 12/26/19 25 plain X-ray of chest completed [facility] 12/27/2024 14:13:55 11/11/19 25 plain X-ray of cervical spine completed [facility] 11/11/2024 12:44:02 10/01/19 25 angiography completed [facility] 10/01/2024 18:38:18 09/27/19 25 plain X-ray of chest completed [facility] 09/27/2024 18:18:09 09/27/19 25 echocardiography completed [facility] 10/01/2024 18:33:00 09/22/19 25 ultrasonography of right breast completed [facility] 09/21/2024 13:39:24 09/22/19 25 mammography completed [facility] 09/21/2024 13:40:36 09/11/[address] of abdomen completed [facility] 09/13/2024 14:56:32 09/10/19 25 angiography of coronary artery completed [facility] 09/13/2024 14:50:21 09/09/19 25 echocardiography completed [facility] 09/13/2024 14:54:55 09/08/19 25 plain X-ray of chest completed [facility] 09/13/2024 14:57:51 08/24/[address] of chest completed [facility] 08/24/2024 12:28:02 04/28/20 24 plain X-ray of chest completed [facility] 04/30/2024 11:08:42 03/31/20 24 plain X-ray of chest completed [facility] 04/01/2024 14:05:05 03/27/20 24 imaging guided percutaneous transluminal angioplasty of coronary artery with contrast completed [facility], LJacoboLJacoboCJacobo 10/05/2024 10:23:19 02/28/20 24 radiographic procedure on chest and/or abdomen completed [facility], LJacoboL.C. 03/04/2024 15:02:31 02/28/[address] of abdomen completed [facility], LJacoboL.CJacobo 03/04/2024 15:03:26 01/19/20 24 diagnostic radiography of abdomen completed [facility], LJacoboL.C. 01/21/2024 17:26:25 01/06/20 24 plain X-ray of chest completed [facility], LJacoboLJacoboCJacobo 01/07/2024 15:42:42 12/27/19 24 plain X-ray of chest completed [facility] 12/29/2023 23:23:06 12/27/19 24 CT of chest, abdomen and pelvis completed [facility] 12/29/2023 23:32:58 12/24/19 24 plain X-ray of chest completed [facility], LJacoboL.C. 12/29/2023 23:56:29 12/20/[address] of chest completed [facility] 12/21/2023 12:33:52 12/20/19 24 plain X-ray of chest completed [facility], LJacoboL.C. 12/21/2023 12:34:44 12/09/19 24 plain X-ray of chest completed [facility], LJacoboLJacoboCJacobo 12/12/2023 10:16:37 12/05/19 24 plain X-ray of chest completed [facility] 12/06/2023 13:24:46 11/28/19 24 cardiac catheterization completed [facility] 12/06/2023 13:11:07 11/28/19 24 imaging guided percutaneous transluminal angioplasty of coronary artery with contrast completed [facility], L.L.CJacobo 10/05/2024 10:22:55 11/27/19 24 plain X-ray of chest completed [facility], L.L.CJacobo 11/28/2023 10:19:35 10/24/19 24 imaging guided percutaneous transluminal angioplasty of coronary artery with contrast completed [facility], L.L.CJacobo 10/05/2024 10:22:32 10/16/19 24 imaging guided percutaneous transluminal angioplasty of coronary artery with contrast completed [facility], L.L.CJacobo 10/05/2024 10:22:12 10/07/19 24 plain X-ray of chest completed [facility], L.L.CJacobo 10/08/2023 17:52:40 09/20/19 24 echocardiography completed [facility] 09/26/2023 12:48:56 lobectomy of lung completed [facility] 10/10/2023 12:32:47 amputation completed [facility] 08/24/2024 12:24:04 cholecystectomy completed [facility], L.L.CJacobo 09/13/2024 14:49:22 Imaging Results None recorded. Procedure Notes None recorded. Medical Equipment None Reported. Allergies Allergen ID Allergen Name Allergen Category Reaction Reaction Severity Criticality Documentation Date Start Date Code Code System Note Provider Name and Address Organization Details Recorded Time 70805 acetamino phen medicatio n abdominal pain moderate low 01/19/20232021 161 RxNorm GI upset /into leran ce Anh coles, [facility] 4 07:57:42 47844 acetamino phen medicatio n Not available Not available Not available 02/21/20242023 161 RxNorm ELIZABETH HOUSER, [facility] [address] [place], [address] , [facility] 5 16:14:16 59860 ranolazin e medicatio n Not available Not available Not available 04/14/2025 59696 RxNorm Hallu cinat ions XIMENA RISHABH coles, [facility] 5 11:33:58 Medications Name Sig [...] [facility]28 Not Available Not [...] times per day 10/09 completed VO CH/jl; 79595; Recorded 05/14/20 19 10:02AM by Leydi Jessica [...] Updated DateTime 5 152.4 cm 26.6 kg/m2 33686.5 6 g 95 % 76 /min 20 /min 138/82 mm[Hg] XIMENA KEATING [facility] 5 12:04:30 Date Recorded Body height Body mass index (BMI) Body weight Oxygen saturation Heart rate Respiratory rate Body temperature Systolic And Diastolic Provider Name and Address Organization Details Last Updated DateTime 5 152.4 cm 26.8 kg/m2 08977.1 5 g 97 % 72 /min 18 /min 98 [degF] 120/70 mm[Hg] BRANDON ADAMELAURA [facility] 5 12:37:22 Date Recorded Body height Body mass index (BMI) Body weight Oxygen saturation Heart rate Respiratory rate Systolic And Diastolic Provider Name and Address Organization Details Last Updated DateTime 5 152.4 cm 27.7 kg/m2 28272.1 2 g 98 % 78 /min 18 /min 158/82 mm[Hg] XIMENA RISHABH [facility] 5 11:21:53 Date Recorded Body height Body mass index (BMI) Body weight Oxygen saturation Heart rate Respiratory rate Systolic And Diastolic Systolic And Diastolic Provider Name and Address Organization Details Last Updated DateTime 5 152.4 cm 27.7 kg/m2 60402.1 2 g 99 % 88 /min 18 /min 166/108 mm[Hg] 158/98 mm[Hg] XIMENA KEATING [facility] 5 11:38:18 Date Recorded Body height Body mass index (BMI) Body weight Oxygen saturation Heart rate Respiratory rate Systolic And Diastolic Provider Name and Address Organization Details Last Updated DateTime 5 152.4 cm 27.7 kg/m2 90181.1 2 g 98 % 80 /min 18 /min 136/80 mm[Hg] XIMENA RISHABH [facility] 5 15:40:44 Social History Question Answer Notes LastModified by Organizat ion Details LastModified Time Tobacco Smoking Status Former Smoker Quit 07/2023 XIMENA RISHABH [facility] 12/24/2023 12:30:16 What Type Of Diet Are You Following? REGULAR [email or web address] Information not available 12/24/2023 Which Illicit Or Recreational Drugs Have You Used? Smokes Meth [email or web address] Information not available 10/10/2023 When Did You Quit Smoking? 1-5yearssin [email or web address] ette Information not available 12/24/2023 What Was The Date Of Your Most Recent Tobacco Screening? 12/24/2023 Information not available 12/24/2023 What Is Your Current Pack Years? 20-29packye ars Information not available 12/24/2023 What Is Your Relationship Status? Single [email or web address] Information not available 12/24/2023 At What Age [...] or recreational drugs? Yes Quit Meth 07/2023 [email or web address] Information not available 12/24/2023 Do you or have you ever used any other forms of tobacco or nicotine? No Information not available 12/24/2023 What is your level of alcohol consumption? None [email or web address] Information not available 10/10/2023 Are you currently employed? No disabled [email or web address] Information not available 10/10/2023 Are you able to walk independently without assistance or assistive devices? YESASSIST Information not available 10/10/2023 Are you able to care for yourself independently? No Mother is her caregiver. [email or web address] Information not available 10/10/2023 Do you or have you ever used any nicotine-free cigarettes, vape, or chewing tobacco? No Information not available 12/24/2023 Mental Status None recorded. Family History Relationship Description Onset Age of this Age Resolved Age Notes LastModified by Organization Details LastModified Time Mother Myocardial infarction In her 50's [email or web address] Not available 12/29/2023 23:44:26 Mother Rheumatoid arthritis [email or web address] Not available 12/28 23:44:44 Brother Acute lymphoid leukemia [email or web address] Not available 10/18 18:24:23 Medical History Condition [...] pneumococcal polysaccharide PPV23 8 completed SUZANNE HEATON [address] [place] [address], [address], [facility], Billie 12/24/2023 12:51:09 Past Encounters Encounter ID Performer Location Encounter Start Date Encounter Closed Date Diagnosis/Indication Diagnosis SNOMED-CT Code Diagnosis ICD10 Code Diagnosis IMO Codes Diagnosis Note [id number] SUZANNE HEATON [facility] ([facility]) [address] [place] [address] 10/10/2023 11:29:12 10/10/2023 13:24:32 Uncontrolled type 1 diabetes mellitus 253945690 E10.[address] Ortega. End stage renal failure on dialysis 744776233 Z99.2 MWF dialysis. Multi vess el coronary artery disease 938661107 I25.10 Following with cardiology in [facility]. Essential hypertension 20733530 I10 Coronary arteriosclerosis 00244084 I25.10 Follows with cardiology in [facility]. [id number] Matthew Packer DO [facility] ([facility]) [address] [place] [address] 12/02/2023 12:01:39 12/02/2023 13:56:02 Dental abscess 411640888 K04.7 Will start patient on lower dose amoxicilli n due to her hemodialys is status. Counseled patient that it is imperative that she see and be evaluated by a dentist in the next 2 to 4 weeks. [id number] SUZANNE HEATON [facility] ([facility]) [address] [place] [address] 12/24/2023 11:37:48 12/24/2023 14:35:44 Mixed anxiety and depressive disorder 504165852 F41.8 Essential hypertension 98009611 I10 Starting Nifedipine today. Type 1 mainor betes mellitus 95363169 E10.[address] Ortega. Pain in bi lateral legs 1385817264 5052436 M79.604 M79.605 Patient reports she took some of her mom's in the past and it was helpful. End stage renal failure on dialysis 054695767 Z99.2 MWF dialysis. [id number] SUZANNE HEATON [facility] ([facility]) [address] [place] [address] 01/07/2024 15:11:38 01/07/2024 17:49:26 Edema 746838283 R60.9 Non-pittin g lower extremity. Chest pain 30997788 R07. 9 Recurrent. Following with cardiology . Blood pres sure outside reference range 24921785 Z01.31 Will half dose of nifedipine until she is seen with cardiology . [id number] SUZANNE HEATON [facility] ([facility]) [address] [place] [address] 02/21/2024 11:42:22 02/21/2024 12:51:01 End-stage renal disease 76600428 N18.6 Continue dialysis. Essential hypertension 00190421 I10 Blood pressure good today. Continue current meds. Uncontroll ed type 1 diabetes mellitus 029864751 E10.65 Continue to follow with Dr. Ortega. Mixed anxi ety and depressive disorder 858941401 F41.8 [id number] ELIZABETH HOUSER [facility] ([facility]) [address] [place] [address] 04/01/2024 13:47:35 04/01/2024 15:21:12 Essential hypertension 20609786 I10 Monitor at home. Follow-up with cardiology . Uncontroll ed type 1 diabetes mellitus 051927010 E10.65 Continue to follow with [facility] 158174231 Z30.9 Has a Nexplanon in her left arm, has not been changed for 12 years per patient Chronic low back pain 27 9059110 M54.50 Would like to see about prescripti on for Tramadol. 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 Congestive heart failure 15630823 I50.9 Follows with Cardiology . Chronic ob structive pulmonary disease 17443559 J44.9 Uses Breo. Secondary hyperaldosteronism 71381906 E26.1 Currently on dialysis. Angina pectoris 47705942 0 I20.9 Follows with cardiology , has nitrostat, recent stent. Amputated toe 107506993 Z89.429 Follows with podiatry. Chronic re current major depressive disorder 2380159 F33.1 Continue Lexapro. [id number] SUZANNE HEATON [facility] ([facility]) [address] [place] [address] 05/01/2024 11:41:02 05/01/2024 13:20:39 Chronic chest pain 4898736201 63958 R07.9 Encouraged her mother to contact cardiology for follow-up. Essential hypertension 39533596 I10 Monitor at home. Restart Coreg. Abnormal vision 6172182 H54.7 [id number] SUZANNE HEATON [facility] ([facility]) [address] [place] [address] 07/01/2024 13:56:52 07/01/2024 15:11:16 Essential hypertension 39143721 I10 Blood pressure this am was 125/80. Type 1 mainor betes mellitus 58008081 E10.[address] Ortega. Mixed anxi ety and depressive disorder 586948588 F41.8 Swelling of lower leg 44 9067439 R22.40 Hypoxemic respiratory failure 3317825315 6129164 J96.91 Uses oxygen at home as needed. 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 Depressive disorder 3548 9007 F33.1 Continue escitalopr am. 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 Congestive heart failure 64572554 I50.9 I50.30 Follows with Cardiology . Chronic ki dney disease stage 5 [id number] N18.5 Z99.2 Currently on dialysis. Amputated toe 808018420 Z89.429 Follows with podiatry. Low back pain 473894922 M54.50 Gabapentin . Hypertensi ve heart and renal disease with (congestive) heart failure 152643922 I13.2 Follows with Cardiology . Chronic ob structive pulmonary disease 16313007 J44.9 Uses Breo. Chronic ki dney disease due to type 2 diabetes mellitus [id number] 08 N18.6 Currently on dialysis. [id number] ELIZABETH HOUSER [facility] ([facility]) [address] [place] [address] 90777-548 5 09/16/2024 09:15:48 09/16/2024 11:21:40 Coronary arteriosclerosis 59988564 I25.10 Recent stent placement. Anemia 005656217 D64.9 Acute supp urative otitis media without spontaneous rupture of ear drum 56271075 H66.001 Pain in bi lateral legs 7161196038 2387118 M79.604 M79.605 She has been taking 100mg three times daily but feels like it needs to be increased. [id number] ELIZABETH HOUSER [facility] ([facility]) [address] [place] [address] 34937-141 5 10/05/2024 10:02:53 10/05/2024 11:11:59 Coronary atherosclerosis 586440927 I25.10 She has 8 stents now. Mixed anxi ety and depressive disorder 755732627 F41.8 She has been having vivid dreams lately revolving around her brother who recently as well as her daughter who . Hospital i npatient stay within past 30 days [id number] 106 Z76.89 [id number] ELIZABETH HOUSER [facility] ([facility]) [address] [place] [address] 29106-301 5 11/27/2024 09:57:25 11/27/2024 10:57:38 Essential hypertension 62754882 I10 Blood pressure this am was 179/112 at home, in office is 150/80. Afternoon readings have been good. Type 1 mainor betes mellitus 73595828 E10.[address] Ortega. Pain in bi lateral legs 8901066394 1309579 M79.604 M79.605 Anxiety 23044084 F41.8 [id number] Unable to lay still for MRI. Will send in clonazepam to take prior to procedure. [id number] ELIZABETH HOUSER [employer] [facility] ([facility]) [address] [place] [address] 85273-816 5 01/06/2025 11:45:44 01/06/2025 13:58:55 Chronic chest pain 9944943339 63161 R07.9 G89.29 237599 Chronic ki dney disease stage 5 942668488 N18.5 Z99.2 Currently on dialysis. Coronary arteriosclerosis 81890151 I25.10 Recent stent placement. Follow-up with cardiology next week. Will discuss chest pain with them as well. [id number] SUZANNE HEATON [facility] ([facility]) [address] [place] [address] 83865-512 5 03/03/2025 12:06:42 03/03/2025 14:00:46 Neuropathy due to diabetes mellitus 009125987 E11.40 Decrease gabapentin to 100mg three times daily. Chronic renal failure 90 819008 N18.5 58212245 Dialysis. Hyperkalemia 14565524 E8 7.5 9805 Labs checked yesterday at Dialysis. Atypical chest pain 1025 70157 R07.89 898819 Recurrent. Following with cardiology . Recently started Isosorbide . History of abnormal cervical Papanicolaou smear 048744403 Z87.42 0833731 [id number] SUZANNE HEATON [facility] ([facility]) [address] [place] [address] 81978-497 5 03/31/2025 10:56:17 03/31/2025 12:04:26 Chronic chest pain 3239561672 43449 R07.9 G89.29 308713 Spasm 75234360 M62.838 Pain in bi lateral legs 7921412909 0507530 M79.604 M79.605 Site-speci fic infective disorders of skin 327960133 L08.9 65786 right index finger Chronic pain syndrome 37 9126328 G89.4 81694 Gabapentin . [id number] SUZANNE HEATON [facility] ([facility]) [address] [place] [address] 39617-602 5 04/14/2025 11:22:24 04/14/2025 14:24:51 Chronic chest pain 0275312004 36573 R07.9 G89.29 170140 Essential hypertension 54201495 I10 05015 Took her blood pressure medication about an hour ago. Pressure at home has been pretty good. Type 1 mainor betes mellitus 40466894 E10.[address] Ortega. Will schedule pump training with patient on a MWF. Will have field health officer set up a time where she can use an exam room here. [id number] SUZANNE HEATON [facility] ([facility]) [address] [place] [address] 05/05/2025 14:52:32 05/05/2025 16:30:15 Pain of knee region 8105426057 M25.569 Chest pain 25511944 R07. 9 182744 Recurrent. Following with cardiology . Recently started colchicine daily and it has been helpful. Chronic ki dney disease stage 5 316655455 N18.5 Z99.2 Currently on dialysis. Generalize d anxiety disorder 47399642 F41.1 92894 Unable to lay still for MRI. Will [...] [place] - [place] A - [facility] (MEDICARE) Donita Aguilar [id number] Donita Aguilar 04/25/2025 [place] [facility] ([facility] Donita Aguilar [id number] Dnoita Aguilar 04/25/2025 2 [place] Donita Aguilar [id number] Donita Aguilar 04/25/2025 1 [place] [facility] Donita Aguilar [id number] Donita Aguilar 12/07/2024 1 [facility] (MEDICAID REPLACEMENT - HMO) [facility] Donita Aguilar [id number] Donita Aguilar Notes Date Note Type Note Provider Name and Address Organization Details Recorded Time 5 text/htm l Angina/Chest PainReported by PatientHPIFor quality, patient reportssqueezingandsoreness. For location, patient reportsmidsternal. For severity, patient reportsmoderate. SUZANNE HEATON [address] [place] [address], [phone], [facility] 01/06/2025 12:54:30 5 text/htm [...] gabapentin lowered back to 100mg. SUZANNE HEATON [address] [place] [address], [phone], [facility] 03/03/2025 13:06:19 5 text/htm l Angina/Chest PainReported by PatientIFor quality, patient reportsheaviness. For context, patient reportsat rest. For severity, patient reportsmoderate. For onset/timing, patient reportshas noted for yearsandintermittent. For alleviating factors, patient reportsnitroglycerinandrest. SUZANNE HEATON [address] [place] [address], [phone], [facility] 03/31/2025 17:08:26 5 text/htm [...] reportshistory of pulmonary disease. SUZANNE HEATON [address] [place], [address], [facility], Billie 04/14/2025 14:09:54 5 text/htm l Generalized Anxiety DisorderReported by Patient Joint PainReported by PatientHPIFor quality, patient reportsdull. For location, patient reportsleft knee. For severity, patient reportsno change. For duration, patient reportspresent <1 month. For timing, patient reportsconstant. ELIZABETH HOUSER, [facility] [address] [place], [address], [facility], [place] 05/06/2025 10:11:39 OBGyn Episode No OBEpisode recorded.
--- OUTSIDE RECORDS SUMMARY | 2025-05-30 22:13 | XMS_ITS | Encounter Summary ---
Author Organization [facility] Address [address] [place] [address] Care Team Providers Care Pouncer Name Role Phone Shravan Jones DO Primary Care Provider [phone]- [phone] Encounter Details Date Type Department Care Team (Late st Contact Info) Description 01/07/2017 Lab Requisition [facility] Laboratory Services [address] [place] [address] [place] [address] David Ortega MD [address] [place] [address] Social History Tobacco Use Types Packs/Day Years Used Date Smoking Tobacco: Every Day Cigarettes Comments:pt lethargic Comments Unknown Sex and Gender Information Value Date Recorded Sex Assigned at Not on file Legal Sex Female 4:38 AM 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
--- OUTSIDE RECORDS SUMMARY | 2025-05-30 22:13 | XMS_ITS | Encounter Summary ---
Author Organization [facility] Address [address] [place] [address] Care Team Providers Care Geological Engineering Teacher Name Role Phone Shravan Jones DO Primary Care Provider [phone]- [phone] Encounter Details Date Type Department Care Team (Late st Contact Info) Description 12/31/[address] 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 This will have limited patient impact. us David Ortega MD CHEMISTRY ORDERABLES Final Res ult [facility] CLIA# [id number] [address] [place] [address] * (ABNORMAL) COMPREHENSIVE METABOLIC PANEL (12/31/2016 2:26 AM CDT) SODIUM 138 136 - 145 mmol/L 12/31/2016 5:52 AM CDT [facility] POTASSIUM 4.7 3.5 - 5.1 mmol/L 12/31/2016 5:52 AM [facility] CHLORIDE 102 98 - 107 mmol/L 12/31/2016 5:52 AM T [facility] CO2 27 21 - 32 mmol/L 12/31/2016 5:52 AM T [facility] CALCIUM 9.1 8.4 - 10.1 mg/dL 12/31/2016 5:52 AM T [facility] BUN 17 7 - 17 mg/dL 12/31/2016 5:52 AM T [facility] CREATININE 0.87 0.55 - 1.02 mg/dL 12/31/2016 5:52 AM T [facility] GLUCOSE 214(H) 74 - 106 mg/dL 12/31/2016 5:52 AM T [facility] TOTAL PROTEIN 8.2 6.4 - 8.2 g/dL 12/31/2016 5:52 AM T [facility] ALBUMIN 1.9(L) 3.4 - 5.0 g/dL 12/31/2016 5:52 AM CDT [facility] BILIRUBIN TOTAL 0.2 0.2 - 1.0 mg/dL 12/31/2016 5:52 AM CDT [facility] ALKALINE PHOSPHATASE 95 25 - 100 U/L 12/31/2016 5:52 AM CDT [facility] AST 9(L) 15 - 37 U/L 12/31/2016 5:52 AM CDT [facility] ALT 14 13 - 61 U/L 12/31/2016 5:52 AM CDT [facility] GFR >60 >=60 mL/min/1.7 3 sq meter 12/31/2016 5:52 AM T [facility] Comment: eGFR [...] 3 sq meter 12/31/2016 5:52 AM CDT [facility] ANION GAP 9 4 - 30 mmol/L 12/31/2016 5:52 AM T [facility] Blood 12/31/2016 2:26 AM CDT 12/31/2016 5:17 AM CDT us David Ortega MD CHEMISTRY ORDERABLES Final Res ult [facility] CLIA# [id number] [address] [place] [address] * (ABNORMAL) CBC WITH DIFFERENTIAL (12/31/2016 2:26 AM CDT) WBC 13.7(H) 4.5 - 11.0 K/uL 12/31/2016 6:32 AM [facility] RBC 3.66(L) 4.20 - 5.40 M/uL 12/31/2016 6:32 AM [facility] HEMOGLOBIN 9.3(L) 12.0 - 16.0 g/dL 12/31/2016 6:32 AM [facility] HEMATOCRIT 29.6(L) 36.0 - 46.0 % 12/31/2016 6:32 AM [facility] ([facility] MCV 80.9(L) 84.0 - 103.0 fL 12/31/2016 6:32 AM [facility] MCH 25.4(L) 27.0 - 34.0 pg 12/31/2016 6:32 AM [facility] MCHC 31.4 30.0 - 35.0 g/dL 12/31/2016 6:32 AM [facility] RDW 17.4(H) 11.0 - 14.5 % 12/31/2016 6:32 AM [facility] RDW-STDEV 52.1 37.0 - 54.0 fL 12/31/2016 6:32 AM [facility] PLATELETS 767(H) 140 - 440 K/uL 12/31/2016 6:32 AM [facility] MPV 9.0 8.9 - 12.8 fL 12/31/2016 6:32 AM [facility] NEUTROPHILS 68 42 - 75 % 12/31/2016 6:32 AM [facility] LYMPHOCYTES 17(L) 24 - 44 % 12/31/2016 6:32 AM [facility] MONOCYTES 8 2 - 10 % 12/31/2016 6:32 AM [facility] EOSINOPHILS 6 0 - 7 % 12/31/2016 6:32 AM [facility] BASOPHILS 0 0 - 1 % 12/31/2016 6:32 AM [facility] IMMATURE GRANULOCYTES 1 0 - 2 % 12/31/2016 6:32 AM CDT [facility] NEUTROPHIL ABSOLUTE 9.26(H) 2.00 - 8.00 K/uL 12/31/2016 6:32 AM CDT [facility] LYMPHOCYTE ABSOLUTE 2.28 1.20 - 4.00 K/uL 12/31/2016 6:32 AM CDT [facility] MONOCYTE ABSOLUTE 1.07(H) 0.10 - 0.60 K/uL 12/31/2016 6:32 AM CDT [facility] EOSINOPHIL ABSOLUTE 0.82(H) 0.00 - 0.70 K/uL 12/31/2016 6:32 AM CDT [facility] BASOPHILS ABSOLUTE 0.06 0.00 - 0.20 K/uL 12/31/2016 6:32 AM CDT [facility] IMMATURE GRANULOCYTES ABSOLUTE 0.17(H) 0.00 - 0.10 K/uL 12/31/2016 6:32 AM CDT [facility] Blood 12/31/2016 2:26 AM CDT 12/31/2016 5:17 AM CDT Narrative [facility] - 12/31/2016 6:32 AM CDT Smear reviewed us David Ortega MD HEMATOLOGY ORDERABLES Final Re sult [facility] CLIA# [id number] [address] [place] [address] documented in this encounter Visit Diagnoses Not on filedocumented in this encounter Care Teams Geological Engineering Teacher Relationship Specialty Start Date End Date Shravan Jones DO PCP - General Family Practice 12/04/16 documented as of this encounter
--- OUTSIDE RECORDS SUMMARY | 2025-05-30 22:13 | XMS_ITS | Encounter Summary ---
Author Organization [facility] Address [address] [place] [address] Care Team Providers Care Broomcorn Seeder Name Role Phone Shravan Jones DO Primary Care Provider [phone]- [phone] Encounter Details Date Type Department Care Team (Late st Contact Info) Description 01/09/[address] 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 This will have limited patient impact. us Izabela Diamond MD CHEMISTRY ORDERABLES Final Res ult [facility] CLIA# [id number] [address] [place] [address] * (ABNORMAL) COMPREHENSIVE METABOLIC PANEL (01/09/2017 3:15 AM CDT) SODIUM 139 136 - 145 mmol/L 01/09/2017 5:53 AM CDT [facility] POTASSIUM 4.1 3.5 - 5.1 mmol/L 01/09/2017 5:53 AM T [facility] CHLORIDE 101 98 - 107 mmol/L 01/09/2017 5:53 AM T [facility] CO2 28 21 - 32 mmol/L 01/09/2017 5:53 AM T [facility] CALCIUM 8.8 8.4 - 10.1 mg/dL 01/09/2017 5:53 AM T [facility] BUN 18(H) 7 - 17 mg/dL 01/09/2017 5:53 AM T [facility] CREATININE 0.73 0.55 - 1.02 mg/dL 01/09/2017 5:53 AM T [facility] GLUCOSE 182(H) 74 - 106 mg/dL 01/09/2017 5:53 AM T [facility] TOTAL PROTEIN 8.4(H) 6.4 - 8.2 g/dL 01/09/2017 5:53 AM T [facility] ALBUMIN 2.5(L) 3.4 - 5.0 g/dL 01/09/2017 5:53 AM CDT [facility] BILIRUBIN TOTAL 0.2 0.2 - 1.0 mg/dL 01/09/2017 5:53 AM CDT [facility] ALKALINE PHOSPHATASE 99 25 - 100 U/L 01/09/2017 5:53 AM CDT [facility] AST 30 15 - 37 U/L 01/09/2017 5:53 AM CDT [facility] ALT 27 13 - 61 U/L 01/09/2017 5:53 AM CDT [facility] GFR >60 >=60 mL/min/1.7 3 sq meter 01/09/2017 5:53 AM T [facility] Comment: eGFR has not been validated for [...] 3 sq meter 01/09/2017 5:53 AM CDT [facility] ANION GAP 10 4 - 30 mmol/L 01/09/2017 5:53 AM T [facility] Blood 01/09/2017 3:15 AM CDT 01/09/2017 5:12 AM CDT us Izabela Diamond MD CHEMISTRY ORDERABLES Final Res ult [facility] CLIA# [id number] [address] [place] [address] * (ABNORMAL) CBC WITH DIFFERENTIAL (01/09/2017 3:15 AM CDT) WBC 8.7 4.5 - 11.0 K/uL 01/09/2017 5:20 AM [facility] RBC 4.63 4.20 - 5.40 M/uL 01/09/2017 5:20 AM [facility] HEMOGLOBIN 11.3(L) 12.0 - 16.0 g/dL 01/09/2017 5:20 AM [facility] HEMATOCRIT 36.8 36.0 - 46.0 % 01/09/2017 5:20 AM [facility] MCV 79.5(L) 84.0 - 103.0 fL 01/09/2017 5:20 AM [facility] MCH 24.4(L) 27.0 - 34.0 pg 01/09/2017 5:20 AM [facility] MCHC 30.7 30.0 - 35.0 g/dL 01/09/2017 5:20 AM [facility] RDW 17.3(H) 11.0 - 14.5 % 01/09/2017 5:20 AM [facility] RDW-STDEV 50.4 37.0 - 54.0 fL 01/09/2017 5:20 AM [facility] PLATELETS 463(H) 140 - 440 K/uL 01/09/2017 5:20 AM [facility] MPV 9.9 8.9 - 12.8 fL 01/09/2017 5:20 AM [facility] NEUTROPHILS 46 42 - 75 % 01/09/2017 5:20 AM [facility] LYMPHOCYTES 33 24 - 44 % 01/09/2017 5:20 AM [facility] MONOCYTES 8 2 - 10 % 01/09/2017 5:20 AM [facility] EOSINOPHILS 11(H) 0 - 7 % 01/09/2017 5:20 AM [facility] BASOPHILS 1 0 - 1 % 01/09/2017 5:20 AM [facility] IMMATURE GRANULOCYTES 0 0 - 2 % 01/09/2017 5:20 AM [facility] NEUTROPHIL ABSOLUTE 4.05 2.00 - 8.00 K/uL 01/09/2017 5:20 AM CDT [facility] LYMPHOCYTE ABSOLUTE 2.86 1.20 - 4.00 K/uL 01/09/2017 5:20 AM CDT [facility] MONOCYTE ABSOLUTE 0.73(H) 0.10 - 0.60 K/uL 01/09/2017 5:20 AM CDT [facility] EOSINOPHIL ABSOLUTE 0.95(H) 0.00 - 0.70 K/uL 01/09/2017 5:20 AM CDT [facility] BASOPHILS ABSOLUTE 0.11 0.00 - 0.20 K/uL 01/09/2017 5:20 AM CDT [facility] IMMATURE GRANULOCYTES ABSOLUTE 0.03 0.00 - 0.10 K/uL 01/09/2017 5:20 AM CDT [facility] Blood 01/09/2017 3:15 AM CDT 01/09/2017 5:12 AM CDT us Izabela Diamond MD HEMATOLOGY ORDERABLES Final Re sult [facility] CLIA# [id number] [address] [place] [address] * (ABNORMAL) HEMOGLOBIN A1C (01/09/2017 2:52 AM CDT) HEMOGLOBIN A1C 8.9(H) 4.0 - 6.0 % 01/09/2017 1:31 PM CDT [facility] EST. AVG GLUCOSE, A1C 209 mg/dL 01/09/2017 1:31 PM CDT [facility] Blood 01/09/2017 2:52 AM CDT 01/09/2017 6:53 AM CDT Narrative [facility] - 01/09/2017 1:31 PM CDT Test performed on [employer] instrumentation using HPLC methodology us Izabela Diamond MD CHEMISTRY ORDERABLES Final Res ult [facility] CLIA# [id number] [address] [place] [address] documented in this encounter Visit Diagnoses Not on filedocumented in this encounter Care Teams Broomcorn Seeder Relationship Specialty Start Date End Date Shravan Jones DO PCP - General Family Practice 12/04/16 documented as of this encounter
--- OUTSIDE RECORDS SUMMARY | 2025-05-30 22:13 | XMS_ITS ---
Laboratory report Created on: May 25, 2025 HUI ALLRED : 1985 Sex: Female Author Name TESSY AMINLIE [employer] Unknown PROBLEMS Problems List Code Description D64.9 RESULTS Laboratory Orders Date Order Code Test 2025-02-05 135317 TAHIR AND PE, SERU M Laboratory Results Date LOINC Test Value Unit Reference Range Interpre tation 2025-02-05 2465-3 IMMUNOGLOBULIN G , QN, SERUM 1961 MG/DL [id number] H 2025-02-05 2458-8 IMMUNOGLOBULIN A , QN, SERUM 473 MG/DL 87-352 H 2025-02-05 2472-9 IMMUNOGLOBULIN M , QN, SERUM 111 MG/DL 26-217 2025-02-05 2885-2 PROTEIN, TOTAL 7.4 G/DL 6.0-8.5 2025-02-05 2862-1 ALBUMIN 3.4 G/DL 2.9-4.4 2025-02-05 2865-4 ALSGT-0-WUGVIRSI .3 G/DL 0.0-0.4 2025-02-05 2868-8 AWXGD-5-BJXXOTXJ .8 G/DL 0.4-1.0 2025-02-05 2871-2 BETA GLOBULIN 1.1 G/DL 0.7-1.3 2025-02-05 2874-6 GAMMA GLOBULIN 1.9 G/DL 0.4-1.8 H 2025-02-05 06244-6 M-SPIKE NOB G/DL NOT OBSERVED 2025-02-05 2336-6 GLOBULIN, TOTAL 4 G/DL 2.2-3.9 H 2025-02-05 1759-0 A/G RATIO .9 0.7-1.7 2025-02-05 86481-2 IMMUNOFIXATION R ESULT, SERUM NOTE 2025-02-05 54416-6 PDF IMAGE
--- OUTSIDE RECORDS SUMMARY | 2025-05-30 22:13 | XMS_ITS | Continuity of Care Document ---
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 echocardiography completed [facility] 10/01/2024 18:33:00 09/22/19 25 ultrasonography of right breast completed [facility] 09/21/2024 13:39:24 09/22/19 25 mammography completed [facility], LJacoboL.CJacobo 09/21/2024 13:40:36 09/11/[address] of abdomen completed [facility], DonteL.CJacobo 09/13/2024 14:56:32 09/10/19 25 angiography of coronary artery completed [facility], LJacoboL.CJacobo 09/13/2024 14:50:21 09/09/19 25 echocardiography completed [facility], DonteLJacoboCJacobo 09/13/2024 14:54:55 09/08/19 25 plain X-ray of chest completed [facility], DonteLJacoboCJacobo 09/13/2024 14:57:51 08/24/[address] of chest completed [facility] L.L.C[facility] 08/24/2024 12:28:02 04/28/20 24 plain X-ray of chest completed [facility] L.L.C[facility]obo 04/30/2024 11:08:42 03/31/20 24 plain X-ray of chest completed [facility] L.L.C[facility]obo 04/01/2024 14:05:05 03/27/20 24 imaging guided percutaneous transluminal angioplasty of coronary artery with contrast completed [facility] 10/05/2024 10:23:19 02/28/20 24 radiographic procedure on chest and/or abdomen completed [facility], LJacoboL.CJacobo 03/04/2024 15:02:31 02/28/[address] of abdomen completed [facility], LJacoboL.CJacobo 03/04/2024 15:03:26 01/19/20 24 diagnostic radiography of abdomen completed [facility] L[facility]L.C[facility]obo 01/21/2024 17:26:25 01/06/20 24 plain X-ray of chest completed [facility] 01/07/2024 15:42:42 12/27/19 24 plain X-ray of chest completed [facility], L.L.CJacobo 12/29/2023 23:23:06 12/27/19 24 CT of chest, abdomen and pelvis completed [facility], LJacoboL.CJacobo 12/29/2023 23:32:58 12/24/19 24 plain X-ray of chest completed [facility], LJacoboLJacoboCJacobo 12/29/2023 23:56:29 12/20/[address] of chest completed [facility], DonteLJacoboCJacobo 12/21/2023 12:33:52 12/20/19 24 plain X-ray of chest completed [facility], L.L.CJacobo 12/21/2023 12:34:44 12/09/19 24 plain X-ray of chest completed [facility] 12/12/2023 10:16:37 12/05/19 24 plain X-ray of chest completed [facility], L.LJacoboCJacobo 12/06/2023 13:24:46 11/28/19 24 cardiac catheterization completed [facility] 12/06/2023 13:11:07 11/28/19 24 imaging guided percutaneous transluminal angioplasty of coronary artery with contrast completed [facility]. 10/05/2024 10:22:55 11/27/19 24 plain X-ray of chest completed [facility], L.LJacoboCJacobo 11/28/2023 10:19:35 10/24/19 24 imaging guided percutaneous transluminal angioplasty of coronary artery with contrast completed [facility] L.L.CJacobo 10/05/2024 10:22:32 10/16/19 24 imaging guided percutaneous transluminal angioplasty of coronary artery with contrast completed [facility], LJacoboL.CJacobo 10/05/2024 10:22:12 10/07/19 24 plain X-ray of chest completed [facility], KaelynCJacobo 10/08/2023 17:52:40 09/20/19 24 echocardiography completed [facility], DonteLJacoboCJacobo 09/26/2023 12:48:56 lobectomy of lung completed XIMENAMAHI KEATING [facility], Billie 10/10/2023 12:32:47 amputation completed XIMENAMAHI KEATING [facility], DonteLJacoboCJacobo 08/24/2024 12:24:04 cholecystectomy completed [facility], DonteLJacoboCJacobo 09/13/2024 14:49:22 Imaging Results None recorded. Procedure Notes None recorded. Medical Equipment None Reported. Allergies Allergen ID Allergen Name Allergen Category Reaction Reaction Severity Criticality Documentation Date Start Date Code Code System Note Provider Name and Address Organization Details Recorded Time 28329 acetamino phen medicatio n abdominal pain moderate low 01/19/20232021 161 RxNorm GI upset /into leran ce Anh coles [facility], LJacoboLJacoboCJacobo 4 07:57:42 80795 acetamino phen medicatio n Not available Not available Not available 02/21/20242023 161 RxNorm ELIZABETH HOUSER, [facility] [address] [place], [address] , [facility], DonteLJacoboCJacobo 16:14:16 86174 ranolazin e medicatio n Not available Not available Not available 04/14/2025 17078 RxNorm Hallu cinat ions [facility] 11:33:58 Medications Name Sig Start Date [...] her to decrease to 100mg TID followin [facility], 02/27 and 02/28 Not Available Not Available [...] times per day 10/09 completed VO CH/jl; 77923; Recorded 05/14/20 19 10:02AM by Leydi Jessica [...] Last Updated DateTime 152.4 cm 26.8 kg/m2 30657.1 5 g 97 % 72 /min 18 /min 98 [degF] 120/70 mm[Hg] BRANDON RIVERA [facility] 12:37:22 Social History Question Answer Notes LastModified by Organizat ion Details LastModified Time Tobacco Smoking Status Former Smoker Quit 07/2023 XIMENA coles [facility] 12/24/2023 12:30:16 What Type Of Diet Are You Following? REGULAR Information not available 12/24/2023 Which Illicit Or Recreational Drugs Have You Used? Smokes Meth [email or web address] Information not available 10/10/2023 When Did You Quit Smoking? 1-5yearssin celastcigar ette Information not available 12/24/2023 What Was The Date Of Your Most Recent Tobacco Screening? 12/24/2023 Information not available 12/24/2023 What Is Your Current Pack Years? 20-29packye ars Information not available 12/24/2023 What Is Your Relationship Status? Single [email or web address] Information not available 12/24/2023 At What Age [...] or recreational drugs? Yes Quit Meth 07/2023 [email or web address] Information not available 12/24/2023 Do you or have you ever used any other forms of tobacco or nicotine? No Information not available 12/24/2023 What is your level of alcohol consumption? None [email or web address] Information not available 10/10/2023 Are you currently employed? No disabled [email or web address] Information not available 10/10/2023 Are you able to walk independently without assistance or assistive devices? YESASSIST Information not available 10/10/2023 Are you able to care for yourself independently? No Mother is her caregiver. [email or web address] Information not available 10/10/2023 Do you or have you ever used any nicotine-free cigarettes, vape, or chewing tobacco? No Information not available 12/24/2023 Mental Status None recorded. Family History Relationship Description Onset Age of this Age Resolved Age Notes LastModified by Organization Details LastModified Time Mother Myocardial infarction In her 50's [email or web address] Not available 12/29/2023 23:44:26 Mother Rheumatoid arthritis [...] pneumococcal polysaccharide PPV23 8 completed ELIZABETH HOUSER, [facility] [address] [place], [address], [facility] L.L[facility]obo 12/24/2023 12:51:09 Past Encounters Encounter ID Performer Location Encounter Start Date Encounter Closed Date Diagnosis/Indication Diagnosis SNOMED-CT Code Diagnosis ICD10 Code Diagnosis IMO Codes Diagnosis Note [id number] SUZANNE HEATON [facility] ([facility]) [address] [place] [address] 03/03/2025 12:06:42 03/03/2025 14:00:46 Neuropathy due to diabetes mellitus 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 Chronic renal failure 90 187808 N18.5 80298369 Dialysis. Hyperkalemia 18117976 E8 7.5 9805 Labs checked yesterday at Dialysis. Atypical chest pain 1025 [address]1669 R07.89 [id number] Recurrent. Following with cardiology . Recently started Isosorbide . History of abnormal cervical Papanicolaou smear 512991972 Z87.42 [id number] Health Concerns Section Related Observation LastModified by Organization Detai ls LastModified Time None Recorded Concern Status LastModified by Organization Details LastModified Time None Recorded Payers Encounter Date Sequence Insurance Name Policy Number Policy Varela Covered Member ID Varela Member ID Guarantor Name 03/03/2025 1 [place] Donita Yenni Lauren [id number] Donita Aguilar 03/03/2025 2 [place] Donita Aguilar [id number] Donita Aguilar Notes Date Note Type Note [...] lowered back to 100mg. SUZANNE HEATON [address] [place], [address], [facility] 03/03/2025 13:06:19 OBGyn Episode No OBEpisode recorded.
--- OUTSIDE RECORDS SUMMARY | 2025-05-30 22:13 | XMS_ITS | Encounter Summary ---
Author Organization [facility] Address [address] [place] [address] Care Team Providers Care Pediatrician Active Practice Name Role Phone Shravan Jones DO Primary Care Provider [phone]- [phone] Encounter Details Date Type Department Care Team (Late st Contact Info) Description 01/07/2017 Lab Requisition [facility] [address] [place] [address] David Ortega MD [address] [place] [address] Social History Tobacco Use Types Packs/Day Years Used Date Smoking Tobacco: Every Day Cigarettes Comments:pt lethargic Comments Unknown Sex and Gender Information Value Date Recorded Sex Assigned at Not on file 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 Gender Identity Not on file Sexual [...] Detected Not Detected 01/07/2017 8:08 PM CDT [facility] Stool STOOL SPECIMEN / Unknown 01/07/2017 1:54 PM CDT 01/07/2017 6:53 PM CDT Narrative [facility] - 01/07/2017 8:08 PM CDT This assay [...] MICROBIOLOGY - GENERAL ORDERAB LES Final Result [facility] CLIA# [id number] [address] [place] [address] documented in this encounter Visit Diagnoses Not on filedocumented in this encounter Care Teams Pediatrician Active Practice Relationship Specialty Start Date End Date Shravan Jones DO PCP - General Family Practice 12/04/16 documented as of this encounter
--- OUTSIDE RECORDS SUMMARY | 2025-05-30 22:13 | XMS_ITS | Encounter Summary ---
Author Organization [facility] Address [address] [place] [address] Care Team Providers Care Head Golf Professional Name Role Phone Shravan Jones DO Primary Care Provider [phone]- [phone] Encounter Details Date Type Department Care Team (Late st Contact Info) Description 01/02/2017 Lab Requisition [facility] [address] [place] [address] Izabela Diamond MD NO ADDRESS ON FILE Social History Tobacco Use Types Packs/Day Years Used Date Smoking Tobacco: Every Day Cigarettes Comments:pt lethargic Comments Unknown Sex and Gender Information Value Date Recorded Sex Assigned at Not on file 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 Gender Identity Not on file Sexual Orientation [...] - 145 mmol/L 01/02/2017 6:07 AM CDT [facility] OmPrompt [facility] POTASSIUM 4.3 3.5 - 5.1 mmol/L [...] 17 mg/dL 01/02/2017 6:07 AM [facility] CREATININE 0.87 0.55 - 1.02 mg/dL 01/02/2017 6:07 AM T [facility] GLUCOSE 122(H) 74 - 106 mg/dL 01/02/2017 6:07 AM [facility] GFR >60 >=60 mL/min/1.7 3 sq [...] [facility] CLIA# [id number] [address] [place] [address] * (ABNORMAL) CBC WITH DIFFERENTIAL (01/02/2017 3:00 AM CDT) [facility] WBC 10.4 4.5 - 11.0 K/uL 01/02/2017 5:44 AM [facility] RBC 4.30 4.20 - 5.40 M/uL 01/02/2017 5:44 AM [facility] HEMOGLOBIN 10.4(L) 12.0 - 16.0 g/dL 01/02/2017 5:44 AM [facility] HEMATOCRIT 34.5(L) 36.0 - 46.0 % 01/02/2017 5:44 AM [facility] MCV 80.2(L) 84.0 - 103.0 fL 01/02/2017 5:44 AM [facility] MCH 24.2(L) 27.0 - 34.0 pg 01/02/2017 5:44 AM [facility] MCHC 30.1 30.0 - 35.0 g/dL 01/02/2017 5:44 AM [facility] RDW 17.4(H) 11.0 - 14.5 % 01/02/2017 5:44 AM [facility] RDW-STDEV 51.1 37.0 - 54.0 fL 01/02/2017 5:44 AM [facility] PLATELETS 764(H) 140 - 440 K/uL 01/02/2017 5:44 AM [facility] MPV 9.2 8.9 - 12.8 fL 01/02/2017 5:44 AM [facility] NEUTROPHILS 56 42 - 75 % 01/02/2017 5:44 AM [facility] LYMPHOCYTES 27 24 - 44 % 01/02/2017 5:44 AM [facility] MONOCYTES 8 2 - 10 % 01/02/2017 5:44 AM [facility] EOSINOPHILS 7 0 - 7 % 01/02/2017 5:44 AM [facility] BASOPHILS 1 0 - 1 % 01/02/2017 5:44 AM [facility] IMMATURE [...] [facility] CLIA# [id number] [address] [place] [address] documented in this encounter Visit Diagnoses Not on filedocumented in this encounter Care Teams Head Golf Professional Relationship Specialty Start Date End Date Shravan Jones DO PCP - General Family Practice 12/04/16 documented as of this encounter
--- OUTSIDE RECORDS SUMMARY | 2025-05-30 22:13 | XMS_ITS | Encounter Summary ---
Author Organization [facility] Address [address] [place] [address] Care Team Providers Care Marketing Admin Name Role Phone Shravan Jones DO Primary Care Provider [phone] Reason for Visit * Reason Onset Date Comments Appointment Notification 11/05/2023 Encounter Details Date Type Department Care Team (Late st Contact Info) Description 11/05/2023 Telephone [facility] [address] [place] [id number] Janell Beauchamp MD [address] [place] [address] Appointment Notification Social History Tobacco Use Types Packs/Day Years Used Date Smoking Tobacco: Every Day Comments:Quit smoking: pt le thargic Social Connections Answer Date Recorded In a typical week, how many times do you talk on the telephone with family, friends, or neighbors? Never 09/22/19 24 Frequency of Social Gatherings with Friends and Family Not on file 09/22/2023 Attends [employer] Services Not on file 09/21 Active Member [...] on file Legal Sex Female 3:34 PM LACTATION COORDINATOR Gender Identity Not on file Sexual Orientation Not on file documented as of this encounter Miscellaneous Notes * Telephone Encounter - Patrica Barney - 11/05/2023 12:07 PM CDT aJnell (Provider) MESSAGE Pt needs to cancel appt on 11/07 and would like to resched. For 11/25 as she has other appts in town that day. Please call pt to reschedule. [facility] Construction Services Technician: Patrica Barney documented in this encounter Plan of Treatment Upcoming Encounters Date Type Department Care Team (Late st Contact Info) Description 08/18/2025 11:00 AM LACTATION COORDINATOR [facility] [address] [facility] [address] [place] [address] Kellee Garcia, HAYDEE [address] [facility] [address] [place] [id number] documented as of this encounter Visit Diagnoses Not on filedocumented in this encounter Additional Health Concerns Infection Onset Date Last Indicated Resolved Time R/O C. diff 07/06/2024 07/06/2024 07/06/2024 8:35 AM LACTATION COORDINATOR documented as of this encounter Care Teams Marketing Admin Relationship Specialty Start Date End Date Shravan Jones DO PCP - General Family Practice 12/04/16 documented as of this encounter
--- OUTSIDE RECORDS SUMMARY | 2025-05-30 22:14 | XMS_ITS | Continuity of Care Document ---
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 Details Recorded Time 04/28/20 25 plain X-ray of left knee region completed XIMENA KEATING [facility] 05/05/2025 15:02:31 04/22/20 25 plain X-ray of chest completed XIMENA KEATING [facility], [facility]. 04/26/2025 19:04:48 04/07/20 25 plain X-ray of chest completed XIMENA KEATING [facility], L[facility]oboL.C. 04/08/2025 12:01:33 03/28/20 25 plain X-ray of chest completed [facility] 03/31/2025 11:10:09 03/21/20 25 plain X-ray of chest completed [facility] 03/31/2025 11:07:12 03/04/20 25 plain X-ray of chest completed [facility] 03/31/2025 11:09:47 12/27/[address] of chest completed [facility] 12/27/2024 14:20:38 12/26/19 25 plain X-ray of chest completed [facility], LJacoboL.CJacobo 12/27/2024 14:13:55 11/11/19 25 plain X-ray of cervical spine completed [facility], LJacoboL.CJacobo 11/11/2024 12:44:02 10/01/19 25 angiography completed [facility], [facility].L.C[facility]obo 10/01/2024 18:38:18 09/27/19 25 plain X-ray of chest completed [facility], LJacoboL.C. 09/27/2024 18:18:09 09/27/19 25 echocardiography completed [facility] 10/01/2024 18:33:00 09/22/19 25 ultrasonography of right breast completed [facility], [facility].L.CJacobo 09/21/2024 13:39:24 09/22/19 25 mammography completed [facility], L[facility]L.CJacobo 09/21/2024 13:40:36 09/11/[address] of abdomen completed [facility], LJacoboL.CJacobo 09/13/2024 14:56:32 09/10/19 25 angiography of coronary artery completed [facility], LJacoboL.C. 09/13/2024 14:50:21 09/09/19 25 echocardiography completed [facility], L.L.CJacobo 09/13/2024 14:54:55 09/08/19 25 plain X-ray of chest completed [facility], LJacoboLJacoboCJacobo 09/13/2024 14:57:51 08/24/[address] of chest completed [facility], DonteLJacoboCJacobo 08/24/2024 12:28:02 04/28/20 24 plain X-ray of chest completed [facility], LJacoboLJacoboCJacobo 04/30/2024 11:08:42 03/31/20 24 plain X-ray of chest completed [facility], LJacoboLJacoboCJacobo 04/01/2024 14:05:05 03/27/20 24 imaging guided percutaneous transluminal angioplasty of coronary artery with contrast completed [facility], LJacoboLJacoboCJacobo 10/05/2024 10:23:19 02/28/20 24 radiographic procedure on chest and/or abdomen completed [facility], LJacoboLJacoboCJacobo 03/04/2024 15:02:31 02/28/[address] of abdomen completed [facility], LJacoboL.CJacobo 03/04/2024 15:03:26 01/19/20 24 diagnostic radiography of abdomen completed [facility], LJacoboLJacoboCJacobo 01/21/2024 17:26:25 01/06/20 24 plain X-ray of chest completed [facility], LJacoboLJacoboCJacobo 01/07/2024 15:42:42 12/27/19 24 plain X-ray of chest completed [facility], LJacoboL.CJacobo 12/29/2023 23:23:06 12/27/19 24 CT of chest, abdomen and pelvis completed [facility], LJacoboLJacoboCJacobo 12/29/2023 23:32:58 12/24/19 24 plain X-ray of chest completed [facility], [place] 12/29/2023 23:56:29 12/20/[address] of chest completed [facility], [place] 12/21/2023 12:33:52 12/20/19 24 plain X-ray of chest completed [facility], [place] 12/21/2023 12:34:44 12/09/19 24 plain X-ray of chest completed [facility], [place] 12/12/2023 10:16:37 12/05/19 24 plain X-ray of chest completed [facility], [place] 12/06/2023 13:24:46 11/28/19 24 cardiac catheterization completed [facility], [place] 12/06/2023 13:11:07 11/28/19 24 imaging guided percutaneous transluminal angioplasty of coronary artery with contrast completed [facility], DonteLJacoboCJacobo 10/05/2024 10:22:55 11/27/19 24 plain X-ray of chest completed [facility], KaelynCJacobo 11/28/2023 10:19:35 10/24/19 24 imaging guided percutaneous transluminal angioplasty of coronary artery with contrast completed [facility], L.LJacoboCJacobo 10/05/2024 10:22:32 10/16/19 24 imaging guided percutaneous transluminal angioplasty of coronary artery with contrast completed [facility], LJacoboLJacoboCJacobo 10/05/2024 10:22:12 10/07/19 24 plain X-ray of chest completed [facility], [place] 10/08/2023 17:52:40 09/20/19 24 [facility]/2023 12:48:56 lobectomy of lung completed XIMENA RISHABH [facility], [place] 10/10/2023 12:32:47 amputation completed XIMENA RISHABH [facility], [place] 08/24/2024 12:24:04 cholecystectomy completed XIMENA RISHABH [facility], [place] 09/13/2024 14:49:22 Imaging Results None recorded. Procedure Notes None recorded. Medical Equipment None Reported. Allergies Allergen ID Allergen Name Allergen Category Reaction Reaction Severity Criticality Documentation Date Start Date Code Code System Note Provider Name and Address Organization Details Recorded Time 23296 acetamino phen medicatio n abdominal pain moderate low 01/19/20232021 161 RxNorm GI upset /into leran ce Anh coles [facility], [place] 4 07:57:42 28935 acetamino phen medicatio n Not available Not available Not available 02/21/20242023 161 RxNorm ELIZABETH HOUSER, [address], [address], [facility], [place] 5 16:14:16 90459 ranolazin e medicatio n Not available Not available Not available 04/14/2025 13569 RxNorm Hallu cinat ions XIMENA RISHABH coles [facility], DonteLJacoboCJacobo 5 11:33:58 Medications Name Sig [...] her to decrease to 100mg TID followin [facility], 02/27 and 02/28 Not Available Not [...] 4-6 times per day 10/09 completed VO /jl; 20914; Recorded 05/14/20 10:02AM by Leydi Jessica RN [...] Last Updated DateTime 152.4 cm 27.7 kg/m2 09382.1 2 g 98 % 78 /min 18 /min 158/82 mm[Hg] XIMENA KEATING [facility] 11:21:53 Social History Question Answer Notes LastModified by [employer] Details LastModified Time Tobacco Smoking Status Former Smoker Quit 07/2023 XIMENA KEATING [facility] 12/24/2023 12:30:16 What Type Of Diet Are You Following? REGULAR [email or web address] Information not available 12/24/2023 Which Illicit Or Recreational Drugs Have You Used? Smokes Meth [email or web address] Information not available 10/10/2023 When Did You Quit Smoking? 1-5yearssin celastcigar ette Information not available 12/24/2023 What Was The Date Of Your Most Recent Tobacco Screening? 12/24/2023 Information not available 12/24/2023 What Is Your Current Pack Years? 20-29packye ars Information not available 12/24/2023 What Is Your Relationship Status? Single [email or web address] Information not available 12/24/2023 At What Age Did You Start Smoking Tobacco? 19 Information not available 12/24/2023 How Much Tobacco Do You Smoke? No Information not available 12/24/2023 How Many Years Have You Smoked Tobacco? 20 Information not available 12/24/2023 Sex: Unknown Functional Status Question Answer Note LastModified by [employer] ion Details LastModified Time Do you use any illicit or recreational drugs? Yes Quit Meth 07/2023 [email or web address] Information not available 12/24/2023 Do you or have you ever used any other forms of tobacco or nicotine? No Information not available 12/24/2023 What is your level of alcohol consumption? None [email or web address] Information not available 10/10/2023 Are you currently employed? No disabled [email or web address] Information not available 10/10/2023 Are you able to walk independently without assistance or assistive devices? YESASSIST [email or web address] Information not available 10/10/2023 Are you able to care for yourself independently? No Mother is her caregiver. [email or web address] Information not available 10/10/2023 Do you or have you ever used any nicotine-free cigarettes, vape, or chewing tobacco? No Information not available 12/24/2023 Mental Status None recorded. Family History Relationship Description Onset Age of this Age Resolved Age Notes LastModified by Organization Details LastModified Time Mother Myocardial infarction In her 50's [email or web address] Not available 12/29/2023 23:44:26 Mother Rheumatoid arthritis [email or web address] Not available 12/28 23:44:44 Brother Acute lymphoid leukemia [email or web address] Not available 10/18 18:24:23 Medical History Condition [...] pneumococcal polysaccharide PPV23 8 completed SUZANNE HEATON [address] [place] [address], [address], [facility], [facility] 12/24/2023 12:51:09 Past Encounters Encounter ID Performer Location Encounter Start Date Encounter Closed Date Diagnosis/Indication Diagnosis SNOMED-CT Code Diagnosis ICD10 Code Diagnosis IMO Codes Diagnosis Note [id number] SUZANNE HEATON [facility] ([facility]) [address] [place] [address] 03/03/2025 12:06:42 03/03/2025 14:00:46 Neuropathy due to diabetes mellitus 346358889 E11.40 Decrease gabapentin to 100mg three times daily. Chronic renal failure 90 586260 N18.5 13894482 Dialysis. Hyperkalemia 64938182 E8 7.5 9805 Labs checked yesterday at Dialysis. Atypical chest pain 1025 42602 R07.89 066329 Recurrent. Following with cardiology . Recently started Isosorbide . History of abnormal cervical Papanicolaou smear 607429341 Z87.42 [id number] SUZANNE HEATON [facility] ([facility]) [address] [place] [address] 03/31/2025 10:56:17 03/31/2025 12:04:26 Chronic chest pain 9295406447 52899 R07.9 G89.29 934071 Spasm 22375389 M62.838 Pain in bi lateral legs 4752701307 0884481 M79.604 M79.605 Site-speci fic infective disorders of skin 824223825 L08.9 27970 right index finger Chronic pain syndrome 37 4055039 G89.4 56729 Gabapentin . Health Concerns Section Related Observation LastModified by Organization Detai ls LastModified Time None Recorded Concern Status LastModified by Organization Details LastModified Time None Recorded Payers Encounter Date Sequence Insurance Name Policy Number Policy Varela Covered Member ID Varela Member ID Guarantor Name 03/31/2025 1 [place] Donita Aguilar [id number] Donita Aguilar 03/31/2025 2 [place] Donita Aguilar [id number] Donita Aguilar Notes Date Note Type Note Provider Name and Address Organization Details Recorded Time 5 text/html Angina/Chest PainReported by PatientHPIFor quality, patient reportsheaviness. For context, patient reportsat rest. For severity, patient reportsmoderate. For onset/timing, patient reportshas noted for yearsandintermittent. For alleviating factors, patient reportsnitroglycerinandre st. SUZANNE HEATON [address] [place], [address], [facility] 03/31/2025 17:08:26 OBGyn Episode No OBEpisode recorded.
--- NOTE | 2025-05-30 22:28 | W.ED.ABDPA2 ---
HPI - Abdominal Pain General: Chief Complaint: Abdominal Pain Stated Complaint: ABD Pain Time Seen by Provider: 05/30/25 22:16 Source: patient Mode of arrival: ambulatory Limitations: no limitations History of Present Illness: Patient is a 39-year-old female with a very extensive past medical history and is well-known to our emergency department here complaining of abdominal pain and cramping. Patient states she ate a salad with chicken and onion rings and a few hours later began having abdominal cramping as well as vomiting and diarrhea. She is not complaining of hematemesis. She has not noticed any blood in her diarrhea. No fevers. Vital signs are stable upon arrival. She is a dialysis patient and receives dialysis on Tuesdays, , Saturdays. She did complete dialysis yesterday. MD elicited complaint: abdominal pain Onset (ago): hour(s) Pain Consistency: constant Location: Diffuse Severity: moderate Quality: cramping and stabbing Radiation: none Migration to: no migration Exacerbating factors: nothing Relieving factors: nothing Associated Symptoms: Reports GI cramping, diarrhea, nausea and vomiting; Denies chills, fever(s), hematochezia, hematemesis and melena Related Data Home Medications ?Medication ?Instructions ?Recorded ?Confirmed gabapentin 100 mg capsule 100 mg PO TID 12/27/23 05/10/25 clopidogrel 75 mg tablet 75 mg PO DAILY 04/28/24 05/10/25 escitalopram oxalate 20 mg tablet 20 mg PO DAILY anxiety 02/14/25 05/10/25 folic acid 1 mg tablet 1 mg PO DAILY 02/14/25 05/10/25 hydralazine 25 mg tablet 12.5 mg PO BID 02/14/25 05/10/25 nitroglycerin 0.4 mg sublingual See Rx Instructions .Route .COMPLEX 02/22/25 05/10/25 tablet cyclobenzaprine 10 mg tablet 10 mg PO TID PRN MUSCLE SPASM 04/22/25 05/10/25 tramadol 50 mg tablet 50 mg PO DAILY 04/22/25 05/10/25 Previous Rx's ?Medication ?Instructions ?Recorded blood-glucose sensor (Dexcom G6 #3 ea 06/12/22 Sensor device) blood-glucose transmitter (Dexcom #1 ea 06/12/22 G6 Transmitter device) blood-glucose,instructional design technologist,cont #1 ea 06/12/22 (Dexcom G6 Cultural Historian) sevelamer carbonate 800 mg tablet 800 mg PO TID #90 tabs 09/16/23 aspirin 81 mg tablet,delayed 81 mg PO QAM 30 days #30 tabs 03/28/24 release atorvastatin 40 mg tablet 40 mg PO BEDTIME 30 days #30 tabs 03/28/24 AFO brace #1 ea 04/20/24 diabetic shoes with 3 inserts #1 ea 04/20/24 amlodipine 5 mg tablet 5 mg PO DAILY #30 tabs 09/30/24 insulin aspart U-100 100 unit/mL See Rx Instructions .Route 12/28/24 (3 mL) subcutaneous pen (Novolog .COMPLEX #15 mL FlexPen U-100 Insulin aspart) colchicine 0.6 mg tablet 0.6 mg PO DAILY #30 tabs 04/23/25 isosorbide mononitrate 60 mg 60 mg PO DAILY #30 tabs 04/23/25 tablet,extended release 24 hr metoclopramide HCl 5 mg tablet 5 mg PO Q8H PRN nausea and 05/23/25 (Reglan) vomiting #20 tabs sodium polystyrene sulfonate 15 15 g PO DAILY #150 grams 05/23/25 gram oral powder Allergies Allergy/AdvReac Type Severity Reaction Status Date / Time acetaminophen AdvReac Mild ADR-Gastrointestinal Verified 05/30/25 22:14 Upset Review of Systems Const: Denies: fever(s), chills, body aches, fatigue or malaise Card: Denies: chest pain Resp: Denies: dyspnea or chest congestion GI: Reports: abdominal pain, nausea, vomiting, diarrhea and GI cramping; Denies: hematemesis, hematochezia or melena : Reports: other (states she only makes a small amount of urine in the AM) Neuro: Denies: headache(s) or dizziness PFSH ED PFSH: Medical History Insulin dependent diabetes mellitus with complications Chest pain Diabetes mellitus Primary hypertension HTN (hypertension), benign Hyperkalemia Headache Accelerated hypertension Uncontrolled type 1 diabetes mellitus ESRD (end stage renal disease) Dialysis complication Hypoglycemia Hemodialysis catheter dysfunction Colitis End stage renal disease on dialysis COPD (chronic obstructive pulmonary disease) Transaminitis Intractable nausea and vomiting Hyperlipidemia CHF (congestive heart failure), NYHA class III Pulmonary hypertension Coronary artery disease involving [place] heart with angina pectoris, unspecified vessel or lesion type Neurogenic bladder COVID-19 Tobacco dependence Drug abuse Anemia Community acquired pneumonia Esophagitis Long-term insulin use History of pancreatitis Celiac disease Recurrent UTI Non-alcoholic fatty liver disease Arnold-Chiari malformation Diabetic gastroparesis -continue Reglan Diabetic neuropathy associated with type 1 diabetes mellitus Headache, common migraine, intractable, with status migrainosus Pleural effusion 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 History of lung surgery -s/p LLL lobectomy secondary to cavitary pneumonia (2017) History of endoscopy History of cholecystectomy Family History Grandfather Diabetes Mother CAD (coronary artery disease) Diabetes Heart disease Hypertension Brother Acute lymphoblastic leukemia (ALL) in child Grandmother Thyroid disease Denies family history of Colon cancer Ovarian cancer Prostate cancer Hyperlipidemia Breast cancer Uterine cancer Stroke Social History Smoking and tobacco/nicotine status: former use of tobacco/nicotine Quit status (tobacco/nicotine): has quit using Former quit date comment: She previously smoked <1/2 PPD, quit July 2023. 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 [employer] Reproductive History: Spontaneous abortions: No Physical Exam Const: COMMON NORMALS: no acute distress, no limitations, alert and well nourished GENERAL APPEARANCE: cooperative and appears older than stated age ORIENTATION/CONSCIOUSNESS: Yes awake, Yes oriented to person, Yes oriented to place and Yes oriented to time Eye: COMMON NORMALS: no scleral icterus Resp: COMMON NORMALS: normal respiratory effort and clear to auscultation bilaterally AUSCULTATION: clear to auscultation bilaterally Cardio: COMMON NORMALS: regular rate and regular rhythm RATE: regular rate RHYTHM: regular rhythm GI: COMMON NORMALS: Normal to inspection, nondistended, normoactive bowel sounds present, Soft to palpation, No hepatosplenomegaly present and no masses INSPECTION: Yes normal to inspection AUSCULTATION: Yes normoactive bowel sounds PALPATION: Yes Soft to palpation, Yes Tenderness to palpation present (GI) (generalized-mild; non-surgical examination), No Guarding due to palpation present (GI), No Rigid due to palpation and Yes No hepatosplenomegaly present : COMMON NORMALS: Yes no CVA tenderness BLADDER/KIDNEY EXAM: Yes no CVA tenderness Back/Pelvis: COMMON NORMALS: no CVA tenderness Neuro: SENSORIUM/ORIENTATION: Yes alert, Yes oriented to person, Yes oriented to place and Yes oriented to time Course Vital Signs: Vital signs: Vital Signs Temperature 98.3 F 05/30/25 22:10 Pulse Rate 73 05/30/25 23:48 Respiratory Rate 18 05/30/25 23:48 Blood Pressure 127/80 05/30/25 23:48 Pulse Oximetry 97 05/30/25 23:48 Oxygen Delivery Me thod Room Air 05/30/25 22:10 MDM - Abdominal Pain Medical Decision Making Patient appears no acute distress. Her vital signs are stable. Blood work is unremarkable. H/H are stable and at baseline. Chemistry with chronic metabolic derangements related to her ESRD. She does not make urine except for a small amount in the morning so UA not collected. Based on her history and nonsurgical abdominal examination, advanced imaging was not performed today. Patient feels better after pain/nausea medications. Will allow discharge with return precautions. Differential Diagnosis Likely abdominal pain Medical Records I reviewed the patient's medical records. Lab Data I reviewed the patient's lab results. 05/30/25 22:40 05/30/25 22:40 Labs/Radiology: Laboratory Results WBC 6.60 10^3/uL (3.29-11.43) 05/30/25 22:40 RBC 3.74 10^6/uL (3.85-5.65) L 05/30/25 22:40 Hgb 11.00 g/dL (11.27-16.99) L 05/30/25 22:40 Hct 34.1 % (36-47) L 05/30/25 22:40 MCV 91.2 fl (85-98) 05/30/25 22:40 MCH 29.4 pg (27-33) 05/30/25 22:40 MCHC 32.3 g/dL (30-55) 05/30/25 22:40 RDW 13.8 % (12.1-15.1) 05/30/25 22:40 Plt Count 206 10^3/cmm (157-399) 05/30/25 22:40 MPV 9.3 fL (7.4-10.4) 05/30/25 22:40 Neut % (Auto) 58.1 % 05/30/25 22:40 Lymph % (Auto) 28.9 % 05/30/25 22:40 Coles % (Auto) 6.7 % 05/30/25 22:40 Eos % (Auto) 5.3 % 05/30/25 22:40 Baso % (Auto) 0.8 % 05/30/25 22:40 Neut # (Auto) 3.84 10^3/uL (1.8-7.7) 05/30/25 22:40 Lymph # (Auto) 1.9 10^3/uL (0.8-4.8) 05/30/25 22:40 Coles # (Auto) 0.4 10^3/uL (0.2-0.9) 05/30/25 22:40 Eos # (Auto) 0.4 10^3/uL (0.0-0.8) 05/30/25 22:40 Baso # (Auto) 0.1 10^3/uL (0.0-0.1) 05/30/25 22:40 Nucleated RBC % (auto) 0 % 05/30/25 22:40 Nucleated RBCs # 0.0 /100WBC 05/30/25 22:40 Sodium 135 mmol/L (136-145) L 05/30/25 22:40 Potassium 4.6 mmol/L (3.5-5.1) 05/30/25 22:40 Chloride 95 mmol/L (98-107) L 05/30/25 22:40 Carbon Dioxide 28 mmol/L (22-29) 05/30/25 22:40 Anion Gap 16.6 (5-19) 05/30/25 22:40 BUN 34 mg/dL (6-20) H 05/30/25 22:40 Creatinine 5.5 mg/dL (0.5-0.9) H 05/30/25 22:40 GFR Calculation 8.7 mL/min (90-130) L 05/30/25 22:40 Glucose 202 mg/dL (65-115) H 05/30/25 22:40 Calculated Osmolality 293 mOsm/kg (285-295) 05/30/25 22:40 Calcium 8.9 mg/dL (8.5-10.5) 05/30/25 22:40 Total Bilirubin 0.3 mg/dL (0.15-1.2) 05/30/25 22:40 AST 19 U/L (0-32) 05/30/25 22:40 ALT 25 U/L (0-33) 05/30/25 22:40 Alkaline Phosphatase 184 U/L (35-105) H 05/30/25 22:40 Total Protein 7.1 g/dL (6.6-8.7) 05/30/25 22:40 Albumin 3.7 g/dL (3.5-5.2) 05/30/25 22:40 Globulin 3.4 g/dL (1.3-4.6) 05/30/25 22:40 Lipase 16 U/L (13-60) 05/30/25 22:40 HCG, Qual Negative (Negative) 05/30/25 22:40 No radiology studies performed this visit Discharge Plan Discharge Patient Disposition: Home Clinical Impression: Foodborne gastroenteritis Condition: Stable Prescriptions: No Action (DME) AFO brace See Rx Instructions .Route .MEDSUPPLY Qty: 1 0RF Rx Instructions: [place] directed [place] shoe guys [place] diabetic shoes with 3 inserts See Rx Instructions .Route .MEDSUPPLY Qty: 1 0RF Rx Instructions: As directed to the shoe guys [place] Dexcom G6 Cultural Historian Misc See Rx Instructions .Route Qty: 1 0RF Rx Instructions: As directed (DME) Dexcom G6 Sensor Device See Rx Instructions .Route Qty: 3 0RF Rx Instructions: As directed (DME) Dexcom G6 Transmitter Device See Rx Instructions .Route Qty: 1 0RF Rx Instructions: As directed atorvastatin 40 mg tablet 40 mg PO BEDTIME 30 Days Qty: 30 0RF aspirin 81 mg tablet,delayed release (DR/EC) 81 mg PO QAM 30 Days Qty: 30 0RF amlodipine 5 mg Tablet 5 mg PO DAILY Qty: 30 0RF sodium polystyrene sulfonate 15 gram powder 15 g PO DAILY Qty: 150 0RF metoclopramide HCl [Reglan] 5 mg tablet 5 mg PO Q8H PRN (Reason: nausea and vomiting) Qty: 20 0RF sevelamer carbonate 800 mg Tablet 800 mg PO TID Qty: 90 0RF gabapentin 100 mg Capsule 100 mg PO TID clopidogrel 75 mg tablet 75 mg PO DAILY insulin aspart U-100 [Novolog FlexPen U-100 Insulin] 100 unit/mL (3 mL) insulin pen See Rx Instructions .ROUTE .COMPLEX Qty: 15 0RF Rx Instructions: Inject 3 times daily, subcut, after meals, based on low-dose sliding scale. hydralazine 25 mg tablet 12.5 mg PO BID folic acid 1 mg tablet 1 mg PO DAILY escitalopram oxalate 20 mg tablet 20 mg PO DAILY nitroglycerin 0.4 mg tablet, sublingual See Rx Instructions .ROUTE .COMPLEX Rx Instructions: DISSOLVE ONE TABLET UNDER THE TONGUE EVERY 5 MINUTES NEEDED FOR CHEST PAIN. DO NOT EXCEED A TOTAL OF 3 DOSES IN 15 MINUTES. tramadol 50 mg tablet 50 mg PO DAILY cyclobenzaprine 10 mg tablet 10 mg PO TID PRN (Reason: MUSCLE SPASM ) colchicine 0.6 mg tablet 0.6 mg PO DAILY Qty: 30 0RF isosorbide mononitrate 60 mg tablet extended release 24 hr 60 mg PO DAILY Qty: 30 0RF Discharge Orders: Discharge ED (Routine); Ordered 05/30/25 Ordered By: Fany Machado Referrals: Elizabeth Dougherty FNP [Primary Care Provider, Unknown] Patient Instructions: Gastroenteritis (DC), Foodborne Illness (DC), Patient Portal & [facility] Instructions Print Language: Japanese Coding Level of Care Code ED Senior Unix Administrator for Reji Chandler
[2025-05-30] MEDS: morphine 4 mg/mL SDV 1 mL IM (22:45)
[2025-05-30] MEDS: promethazine 25 mg/mL SDV 1 mL 50 MG IM (22:46)
[2025-05-30 22:49] LABS: Hematocrit 34.1 % (36-47); Hemoglobin 11.00 g/dL (11.27-16.99); Mean Corpuscular HGB Conc 32.3 g/dL (30-55); Mean Corpuscular Hemoglobin 29.4 pg (27-33); Mean Corpuscular Volume 91.2 fl (85-98); Nucleated Red Blood Cells % 0 %; Platelet Count 206 10^3/cmm (157-399); Red Blood Count 3.74 10^6/uL (3.85-5.65); White Blood Count 6.60 10^3/uL (3.29-11.43)
--- NOTE | 2025-05-30 22:49 | PC.NURSE ---
UA not able to be collected as patient is a dialysis patient and she only urinates in the mornings a small amount. LORE francois notified and she said not to worry about UA.
[2025-05-30 23:06] LABS: Alanine Aminotransferase 25 U/L (0-33); Albumin Level 3.7 g/dL (3.5-5.2); Alkaline Phosphatase 184 U/L (35-105); Anion Gap 16.6 (5-19); Aspartate Amino Transferase 19 U/L (0-32); Blood Urea Nitrogen 34 mg/dL (6-20); Calcium 8.9 mg/dL (8.5-10.5); Carbon Dioxide 28 mmol/L (22-29); Chloride 95 mmol/L (98-107); Globulin 3.4 g/dL (1.3-4.6); Glucose 202 mg/dL (65-115); HCG, Serum Qual Negative (Negative); Lipase 16 U/L (13-60); Osmolality Calculated 293 mOsm/kg (285-295); Potassium 4.6 mmol/L (3.5-5.1); Sodium 135 mmol/L (136-145); Total Protein 7.1 g/dL (6.6-8.7)
[2025-05-30] MEDS: morphine 4 mg/mL SDV 1 mL 2 MG IM (23:44)
== END 2025-05-30 23:49 | disposition home or self-care (01) ==
PROVIDERS: Emergency Provider Physician Assistant; PCP Nurse Practitioner Family
DX: K52.89 Other specified noninfective gastroenteritis and colitis (principal); Z79.82 Long term (current) use of aspirin; Z79.02 Long term (current) use of antithrombotics/antiplatelets; Z79.4 Long term (current) use of insulin; Z87.891 Personal history of nicotine dependence; E10.22 Type 1 diabetes mellitus with diabetic chronic kidney disease; I13.11 Hypertensive heart and chronic kidney disease without heart failure, with stage 5 chronic kidney disease, or end stage renal disease; N18.6 End stage renal disease; Z99.2 Dependence on renal dialysis; J44.9 Chronic obstructive pulmonary disease, unspecified
CPT/HCPCS: 36415; 80053; 83690; 84703; 85025; 96372; 99284; J2270; J2550

== ENCOUNTER 2025-06-06 20:11 | Emergency (ER) | payer MEDICARE, MEDICAID, SELFPAY ==
[2025-06-06] VITALS (7 sets, daily range): BP systolic 147–187; BP diastolic 83–115; PULSE 70–92; RESP 13–22; TEMP 36.8; O2SAT 96–99; BMI 26.4
--- NOTE | 2025-06-06 20:18 | ECG_ITS ---
Kopo Kopo Test Date: 2025-06-06 Pat Name: Donita Aguilar Department: Room: Gender: Female Ticket Scheduler: : 1985 Requested By: Jak Saldana Order Number: [id number] Faviola MD: Gilberto Eugene M.D. Measurements Intervals [place] Rate: 89 P: 74 LA: 189 QRS: -20 QRSD: 106 T: 34 QT: 390 QTc: 475 Interpretive Statements SINUS RHYTHM LEFT ATRIAL ENLARGEMENT [-0.15mV P-WAVE IN V1/V2] INFERIOR MYOCARDIAL INFARCTION , PROBABLY OLD [40+ ms Q WAVE AND/OR ST/T ABNORMALITY IN II/aVF] INTERPRETATION BASED ON A DEFAULT AGE OF 40 YEARS Compared to ECG 05/24/2025 22:09:32 Myocardial infarct finding now present T-wave abnormality no longer present Electronically Signed On 06-08-2025 21:39:51 [employer] BUILDER by Gilberto Eugene M.D. [email or web address]
--- OUTSIDE RECORDS SUMMARY | 2025-06-06 20:18 | XMS_ITS | Clinical Summary ---
Author Organization [facility] Facility Address [address] [address] Care Team Providers Care Forensic Toxicologist Name Role Phone Alexis Garcia MD Primary Care Provider [phone] Encounters Date Type Department Care Team Description 06/03/2025 Orders Only [facility], [facility] [address] [place] [id number] Chey Navas MD 06/01/2025 Treatment [facility], [facility] [address] [place] [address] Karlene Cespedes NP End stage renal disease; Dependence on renal dialysis 05/27/2025 Orders Only [facility], [facility] [address] [place] [address] Chey Navas MD 05/25/2025 Treatment [facility], [facility] [address] [place] [address] Melissa Wiley NP Secondary hyperaldosteronism; Protein-calorie malnutrition; End stage renal disease; Dependence on renal dialysis 05/19/2025 Orders Only [facility], [facility] [address] [place] [address] Chey Navas MD 05/17/2025 Treatment [facility] [place], [facility] [address] [place] [address] Melissa Wiley NP End stage renal disease; Dependence on renal dialysis 05/13/2025 Orders Only [facility], [facility] [address] [place] [address] Chey Navas MD 05/11/2025 [facility], [facility] [address] [place] [address] Chey Navas MD 05/11/2025 Treatment [facility], [facility] [address] [place] [address] Chey Navas MD End stage renal disease; Dependence on renal dialysis 05/06/2025 Orders [facility], [facility] [address] [place] [address] Chey Navas MD 05/04/2025 Orders [facility], [facility] [address] [place] [address] Chey Navas MD 05/04/2025 Treatment 8[facility], [facility] [address] [place] [address] Melissa Wiley NP End stage renal disease; Dependence on renal dialysis 04/29/2025 Orders [facility], [facility] [address] [place] [address] Chey Navas MD 04/27/[address] [place] [address], [facility] [address] [place] [address] Melissa Wiley NP End stage renal disease; Dependence on renal dialysis 04/22/2025 Orders [facility], [facility] [address] [place] [address] Chey Navas MD 04/20/[address] [place] [address] Nephrology [facility], [facility] [address] [place] [address] Chey Navas MD End stage renal disease; Dependence on renal dialysis 04/15/2025 Orders [facility], [facility] [address] [place] [address] Chey Navas MD 04/13/2025 Orders Only [facility], [facility] [address] [place] [address] Chey Navas MD 04/13/2025 Treatment 8[facility], [facility] [address] [place] [address] Melissa Wiley NP End stage renal disease; Dependence on renal dialysis 04/01/2025 Orders Only [facility], [facility] [address] [place] [address] Chey Navas MD 03/30/2025 Treatment 8[facility], [facility] [address] [place] [address] Karlene Cespedes NP End stage renal disease; Dependence on renal dialysis 03/25/[address] [place] [address], [facility] [address] [place] [address] Melissa Wiley NP End stage renal disease; Dependence on renal dialysis 03/25/2025 Orders [facility], [facility] [address] [place] [address] Chey Navas MD 03/18/2025 Orders Only [facility], [facility] [address] [place] [address] Chey Navas MD 03/16/[address] [place], [place] [address]rology [facility], [facility] [address] [place] [address] Chey Navas MD End stage renal disease; Dependence on renal dialysis 03/11/2025 Orders Only [facility], [facility] [address] [place] [address] Chey Navas MD 03/09/[address] [place] [address] [facility] [address] [place] [address] Melissa Wiley NP End stage [...] Ophthalmology Exam 05/20/2025 05/20/2024 Diabetes: Hemoglobin A1C 08/25/2025 025, 03/02/2025, 11/26/2024, Additional history exists Influenza Vaccine Completed 03/18/2025, 04/21/2024 Procedures Procedure Name Priority Date/Time Associated Diagnosis Comments HEMOGLOBIN Routine 06/03/2025 SPECTRA MICHAEL LAB RESULTS Routine 05/27/2025 SPECIMEN INTEGRITY COMPROMISED Routine 05/27/2025 HEMOGLOBIN A1C Routine 05/27/2025 FERRITIN Routine 05/27/2025 PTH, INTACT Routine 05/27/2025 DIFFERENTIAL WITH WBC Routine 05/27/2025 CBC Routine 05/27/2025 PLATELET COUNT Routine 05/27/2025 POST DIALYSIS BUN Routine 05/27/2025 IRON AND TIBC Routine 05/27/2025 MAGNESIUM Routine 05/27/2025 GLUCOSE, RANDOM Routine 05/27/2025 ALBUMIN Routine 05/27/2025 PROTEIN, TOTAL, SERUM Routine 05/27/2025 ALKALINE PHOSPHATASE Routine 05/27/2025 PHOSPHATE ( PHOSPHORUS) Routine 05/27/2025 CALCIUM Routine 05/27/2025 CO2, TOTAL Routine 05/27/2025 CHLORIDE Routine 05/27/2025 SODIUM Routine 05/27/2025 BUN Routine 05/27/2025 CREATININE, SERUM Routine 05/27/2025 POTASSIUM Routine 05/27/2025 HEMOGLOBIN Routine 05/19/2025 HEMOGLOBIN Routine 05/13/2025 SPECTRA MICHAEL LAB RESULTS Routine 05/11/2025 POST DIALYSIS BUN Routine 05/11/2025 BUN Routine 05/11/2025 POTASSIUM Routine 05/11/2025 SPECTRA MICHAEL LAB RESULTS Routine 05/06/2025 HEMOGLOBIN Routine 05/06/2025 POST DIALYSIS BUN Routine 05/06/2025 BUN Routine 05/06/2025 PTH, INTACT Routine 05/04/2025 DIFFERENTIAL WITH WBC Routine 04/29/2025 CBC Routine 04/29/2025 PLATELET COUNT Routine 04/29/2025 POST DIALYSIS BUN Routine 04/29/2025 IRON AND TIBC Routine 04/29/2025 GLUCOSE, RANDOM Routine 04/29/2025 ALBUMIN Routine 04/29/2025 PROTEIN, TOTAL, SERUM Routine 04/29/2025 PHOSPHATE ( PHOSPHORUS) Routine 04/29/2025 CALCIUM Routine 04/29/2025 CO2, TOTAL Routine 04/29/2025 CHLORIDE Routine 04/29/2025 SODIUM Routine 04/29/2025 BUN Routine 04/29/2025 CREATININE, SERUM Routine 04/29/2025 POTASSIUM Routine 04/29/2025 HEMATOLOGY Routine 04/22/2025 HEMATOLOGY Routine 04/15/2025 CHEMISTRY Routine 04/13/2025 HEMATOLOGY Routine 04/01/2025 SPECTRA MICHAEL LAB RESULTS Routine 03/25/2025 HD KINETICS Routine 03/25/2025 POST CHEMISTRY Routine 03/25/2025 CHEMISTRY Routine 03/25/2025 HEMATOLOGY Routine 03/25/2025 HEMATOLOGY Routine 03/18/2025 HEMATOLOGY Routine 03/11/2025 from Last 3 Months Results * (ABNORMAL) Hemoglobin (06/03/2025) Only the most recent of4 resultswithin the time period is included. Hemoglobin 11.1(L) 11.7 - 14.0 g/dL [facility] 06/03/2025 06/02/2025 8:4 8 AM OFFICE CLIN ASST Narrative Resulting Agency Comment Performing Organization Information: Site ID: FRANCISCO JAVIER Name: [facility] Address: [id number] [place] [phone] Director: Jennifer De Jesus MD Chey Navas MD LAB BLOOD ORDERABLES Final Re sult [facility] [address] [place] [address] * (ABNORMAL) Iron and TIBC (05/27/2025) Only the most recent of2 resultswithin the time period is included. Iron, Total 89 40 - 190 mcg/dL [facility] TIBC 201(L) 250 - 450 mcg/dL (calc) [facility] Iron Saturation (TSat) 44 16 - 45 % (calc) [facility] 05/27/2025 05/26/2025 1:1 3 PM OFFICE CLIN ASST Narrative Resulting Agency Comment Performing Organization Information: Site ID: [place] JAVIER Name: [facility] Address: [address] [place] [phone] Director: Jennifer De Jesus MD Chey Navas MD LAB BLOOD ORDERABLES Final Re sult Performing Organization Address [facility] de Phone Number [facility] [address] * SPECIMEN INTEGRITY COMPROMISED (05/27/2025) SPECIMEN INTEGRITY COMPROMISED [email or web address] Comment: Whole blood, unspun or partially spun gel barrier tube was received more than 6 hours since collection. A false elevation of K, Phos and LD as well as a false decrease in glucose may occur due to prolonged contact with red cells. 05/27/2025 05/26/2025 1:1 3 PM OFFICE CLIN ASST Narrative Resulting Agency Comment Performing Organization Information: Site ID: [id number] Name: [facility] Address: [address] [place] [phone] Director: Jennifer De Jesus MD Chey Navas MD LAB BLOOD ORDERABLES Final Re sult Performing Organization Address [facility] de Phone Number [facility] [phone] * Spectra MICHAEL Lab Results (05/27/2025) Only the most recent of4 resultswithin the time period is included. eKt/V (Tattersall) 1.42 [facility] eKdrt/V 1.41 [facility] WSTDKT/V 2.5 [facility] nPCR_HD 0.63 [facility] eKt/V [facility] PCR 36.52 Knowledge Center spKt/V Gotch 1.67 [facility] ge Center spKt/V (Daugirdas II) 1.66 [facility] eNPCR 0.59 [facility] 05/27/2025 05/27/2025 us Michael Ordering Provider LAB BLOOD ORDERABLES Final Result MICHAEL [facility] Contact Performing lab Unknown, [place] * Post Dialysis BUN (05/27/2025) Only the most recent of4 resultswithin the time period is included. BUN Post Dialysis 7 7 - 25 mg/dL [facility] 05/27/2025 05/26/2025 1:1 3 PM OFFICE CLIN ASST Narrative Resulting Agency Comment Performing Organization Information: Site ID: [place]AV[place] Name: [facility] Address: [address] [place] [phone] Director: Jennifer De Jesus MD us Chey Navas MD LAB BLOOD ORDERABLES Final Re sult [facility] [address] [place] [phone] * Differential with WBC (05/27/2025) Only the most recent of2 resultswithin the time period is included. WBC 6.4 3.8 - 10.8 Thousand/u L [facility] Neutrophils Absolute 3,424 1,500 - 7,800 cells/uL [facility] Lymphocytes Absolute 1,965 850 - 3,900 cells/uL [facility] Monocytes Absolute 685 200 - 950 cells/uL [facility] Eosinophils Absolute 294 15 - 500 cells/uL [facility] Basophils Absolute 32 0 - 200 cells/uL [facility] Neutrophils Relative 53.5 % [facility] Lymphocytes 30.7 % [facility] Monocytes 10.7 % [facility] Eosinophils 4.6 % [facility] Basophils Relative 0.5 % [facility] 05/27/2025 05/26/2025 1:1 3 PM OFFICE CLIN ASST Narrative Resulting Agency Comment Performing Organization Information: Site ID: [place] JAVIER Name: [facility] Address: [address] [place] [phone] Director: Jennifer De Jesus MD Chey Navas MD LAB BLOOD ORDERABLES Final Re sult Performing Organization Address [facility] Co de Phone Number [facility] [address] [place] [phone] * Platelet count (05/27/2025) Only the most recent of2 resultswithin the time period is included. Pathologist [facility] Platelets 154 140 - 400 Thousand/uL [facility] 05/27/2025 05/26/2025 1:1 3 PM OFFICE CLIN ASST Narrative Resulting Agency Comment Performing Organization Information: Site ID: [place] Name: [facility] Address: [address] [place] [phone] Director: Jennifer De Jesus MD Chey Navas MD LAB BLOOD ORDERABLES Final Re sult Performing Organization Address [facility] de Phone Number [facility] [address] [place] [phone] * (ABNORMAL) CBC (05/27/2025) Only the most recent of2 resultswithin the time period is included. Pathologist [facility] WBC 6.4 3.8 - 10.8 Thousand/u L [facility] RBC 3.54(L) 3.80 - 5.10 Million/uL [facility] Hemoglobin 10.5(L) 11.7 - 14.0 g/dL [facility] Hematocrit 31.9(L) 35.9 - 46.0 % [facility] MCV 90.1 81.4 - 101.7 fL [facility] MCH 29.7 27.0 - 33.0 pg [facility] MCHC 32.9 31.6 - 35.4 g/dL [facility] Comment: For adults, a slight decrease in the calculated MCHC value (in the range of 30 to 32 g/dL) is most likely not clinically significant; however, it should be interpreted with caution in correlation with other red cell parameters and the patient's clinical condition. RDW 13.2 11.0 - 15.0 % [facility] 05/27/2025 05/26/2025 1:1 3 PM OFFICE CLIN ASST Narrative Resulting Agency Comment Performing Organization Information: Site ID: [place] JAVIER Name: [facility] Address: [facility] [place] [address] Director: Jennifer De Jesus MD Chey Navas MD LAB BLOOD ORDERABLES Final Re sult Performing Organization Address [facility] Co de Phone Number [facility] [address] [place] [phone] * (ABNORMAL) BUN (05/27/2025) Only the most recent of4 resultswithin the time period is included. BUN 31(H) 7 - 25 mg/dL [facility] 05/27/2025 05/26/2025 1:1 3 PM OFFICE CLIN ASST Narrative Resulting Agency Comment Performing Organization Information: Site ID: FRANCISCO JAVIER Name: [facility] Address: [facility] [place] [address] Director: Jennifer De Jesus MD Chey Navas MD LAB BLOOD ORDERABLES Final Re sult Performing Organization Address [facility] Co de Phone Number [facility] [address] [place] [phone] * Sodium (05/27/2025) Only the most recent of2 resultswithin the time period is included. Sodium 136 135 - 146 mmol/L [facility] 05/27/2025 05/26/2025 1:1 3 PM OFFICE CLIN ASST Narrative Resulting Agency Comment Performing Organization Information: Site ID: [place] JAVIER Name: [facility] Address: [facility] [place] [address] Director: Jennifer De Jesus MD us Chey Navas MD LAB BLOOD ORDERABLES Final Re sult Performing Organization Address City/[facility] Co de Phone Number [facility] [id number] [place] [phone] * Protein, total (05/27/2025) Only the most recent of2 resultswithin the time period is included. Total Protein 6.6 6.1 - 8.1 g/dL [facility] 05/27/2025 05/26/2025 1:1 3 PM OFFICE CLIN ASST Narrative Resulting Agency Comment Performing Organization Information: Site ID: [place] Name: [facility] Address: [address] [place] [phone] Director: Jennifer De Jesus MD us Chey Navas MD LAB BLOOD ORDERABLES Final Re sult Performing Organization Address [facility] Co de Phone Number [facility] [address] [place] [phone] * Potassium (05/27/2025) Only the most recent of3 resultswithin the time period is included. Pathologist [facility] Potassium 4.3 3.5 - 5.3 mmol/L [facility] 05/27/2025 05/26/2025 1:1 3 PM OFFICE CLIN ASST Narrative Resulting Agency Comment Performing Organization Information: Site ID: [place] Name: [facility] Address: [address] [place] [phone] Director: Jennifer De Jesus MD us Chey Navas MD LAB BLOOD ORDERABLES Final Re sult Performing Organization Address [facility] Co de Phone Number [facility] [address] [place] [address] * (ABNORMAL) Phosphorus (05/27/2025) Only the most recent of2 resultswithin the time period is included. Phosphorus 5.8(H) 3.0 - 4.5 mg/dL [facility] 05/27/2025 05/26/2025 1:1 3 PM OFFICE CLIN ASST Narrative Resulting Agency Comment Performing Organization Information: Site ID: [place] Name: [facility] Address: [address] [place] [phone] Director: Jennifer De Jesus MD Chey Navas MD LAB BLOOD ORDERABLES Final Re sult Performing Organization Address [facility] Co de Phone Number [facility] [phone] * (ABNORMAL) Alkaline phosphatase (05/27/2025) Alkaline Phosphatase 155(H) 31 - 125 U/L [facility] 05/27/2025 05/26/2025 1:1 3 PM OFFICE CLIN ASST Narrative Resulting Agency Comment Performing Organization Information: Site ID: [place]AV[place] Name: [facility] Address: [address] [place] [phone] Director: Jennifer De Jesus MD Chey Navas MD LAB BLOOD ORDERABLES Final Re sult Performing Organization Address [facility] Co de Phone Number [facility] [phone] * (ABNORMAL) PTH, Intact (05/27/2025) Only the most recent of2 resultswithin the time period is included. Parathyroid Hormone, Intact 577(H) 16 - 77 pg/mL [facility] Comment: Interpretive Guide Intact PTH Calcium ------- Normal Parathyroid Normal Normal Hypoparathyroidism Low or Low Normal Low Hyperparathyroidism Primary Normal or High High Secondary High Normal or Low Tertiary High High Non-Parathyroid Hypercalcemia Low or Low Normal High 05/27/2025 05/26/2025 1:1 3 PM OFFICE CLIN ASST Narrative Resulting Agency Comment Performing Organization Information: Site ID: [place] Name: [facility] Address: [address] [place] [phone] Director: Jennifer De Jesus MD Chey Navas MD LAB BLOOD ORDERABLES Final Re sult Performing Organization Address [facility] Co de Phone Number [facility] [address] [place] [phone] * Magnesium (05/27/2025) Pathologist [facility] Magnesium 2.0 1.6 - 2.5 mg/dL [facility] 05/27/2025 05/26/2025 1:1 3 PM OFFICE CLIN ASST Narrative Resulting Agency Comment Performing Organization Information: Site ID: [place] Name: [facility] Address: [address] [place] [phone] Director: Jennifer De Jesus MD Chey Navas MD LAB BLOOD ORDERABLES Final Re sult Performing Organization Address [facility] Co de Phone Number [facility] [address] [place] [phone] * (ABNORMAL) Hemoglobin A1c (05/27/2025) Hemoglobin A1C 6.4(H) <5.7 % [facility] Comment: For someone without known diabetes, a hemoglobin A1c value between 5.7% and 6.4% is consistent with prediabetes and should be confirmed with a follow-up test. For someone with known diabetes, a value <7% indicates that their diabetes is well controlled. A1c targets should be individualized based on duration of diabetes, age, comorbid conditions, and other considerations. This assay result is consistent with an increased risk of diabetes. Currently, no consensus exists regarding use of hemoglobin A1c for diagnosis of diabetes for children. 05/27/2025 05/26/2025 1:1 3 PM OFFICE CLIN ASST Narrative Resulting Agency Comment Performing Organization Information: Site ID: FRANCIS[place] JAVIER Name: [facility] Address: [place] [address] Director: Jennifer De Jesus MD Chey Navas MD LAB BLOOD ORDERABLES Final Re sult Performing Organization Address [facility] de Phone Number [facility] [address] [facility] [place] [address] * (ABNORMAL) Glucose, random (05/27/2025) Only the most recent of2 resultswithin the time period is included. Glucose 115(H) 65 - 99 mg/dL [facility] Comment: For someone without known diabetes, a glucose value between 100 and 125 mg/dL is consistent with prediabetes and should be confirmed with a follow-up test. 05/27/2025 05/26/2025 1:1 3 PM OFFICE CLIN ASST Narrative Resulting Agency Comment Performing Organization Information: Site ID: [place] Name: [facility] Address: [address] [place] [phone] Director: Jennifer De Jesus MD us Chey Navas MD LAB BLOOD ORDERABLES Final Re sult Performing Organization Address [facility] de Phone Number [facility] [id number] [place] [phone] * (ABNORMAL) Ferritin (05/27/2025) Ferritin 1,011(H) 16 - 154 ng/mL [facility] 05/27/2025 05/26/2025 1:1 3 PM OFFICE CLIN ASST Narrative Resulting Agency Comment Performing Organization Information: Site ID: [place] Name: [facility] Address: [address] [place], [place] [address]ner [facility] [place] [address] Director: Jennifre De Jesus MD us Chey Navas MD LAB BLOOD ORDERABLES Final Re sult Performing Organization Address City/[facility]/ZIP Co de Phone Number [facility] [address] [place] [address] [phone] * (ABNORMAL) Creatinine, serum (05/27/2025) Only the most recent of2 resultswithin the time period is included. Creatinine 6.06(H) 0.50 - 0.97 mg/dL [facility] 05/27/2025 05/26/2025 1:1 3 PM OFFICE CLIN ASST Narrative Resulting Agency Comment Performing Organization Information: Site ID: FRANCISCO JAVIER Name: [facility] Address: [address] [place] [phone] Director: Jennifer De Jesus MD us Chey Navas MD LAB BLOOD ORDERABLES Final Re sult Performing Organization Address [facility] Co de Phone Number [facility] [address] [place] [phone] * Chloride (05/27/2025) Only the most recent of2 resultswithin the time period is included. Pathologist [facility] [place] Chloride 98 98 - 110 mmol/L [facility] 05/27/2025 05/26/2025 1:1 3 PM OFFICE CLIN ASST Narrative Resulting Agency Comment Performing Organization Information: Site ID: FRANCISCO JAVIER Name: [facility] Address: [address] [place] [phone] Director: Jennifer De Jesus MD us Chey Navas MD LAB BLOOD ORDERABLES Final Re sult Performing Organization Address [facility] Co de Phone Number [facility] [phone] * CO2 (05/27/2025) Only the most recent of2 resultswithin the time period is included. Bicarbonate (CO2) 27 20 - 29 mmol/L [facility] 05/27/2025 05/26/2025 1:1 3 PM OFFICE CLIN ASST Narrative Resulting Agency Comment Performing Organization Information: Site ID: FRANCISCO JAVEIR Name: [facility] Address: [address] [place] [phone] Director: Jennifer De Jesus MD Chey Navas MD LAB BLOOD ORDERABLES Final Re sult Performing Organization Address City/[facility]/ZIP Co de Phone Number [facility] [address] [place] [phone] * (ABNORMAL) Calcium (05/27/2025) Only the most recent of2 resultswithin the time period is included. Calcium 8.2(L) 8.6 - 10.0 mg/dL [facility] 05/27/2025 05/26/2025 1:1 3 PM OFFICE CLIN ASST Narrative Resulting Agency Comment Performing Organization Information: Site ID: FRANCISCO JAVIER Name: [facility] Address: [address] [place] [phone] Director: Jennifer De Jesus MD us Chey Navas MD LAB BLOOD ORDERABLES Final Re sult Performing Organization Address [facility] Co de Phone Number [facility] [address] [place] [phone] * (ABNORMAL) Albumin (05/27/2025) Only the most recent of2 resultswithin the time period is included. Albumin 3.4(L) 3.6 - 5.1 g/dL [facility] 05/27/2025 05/26/2025 1:1 3 PM OFFICE CLIN ASST Narrative Resulting Agency Comment Performing Organization Information: Site ID: FRANCISCO JAVIER Name: [facility] Address: [address] [place] [phone] Director: Jennifer De Jesus MD us Chey Navas MD LAB BLOOD ORDERABLES Final Re sult Performing Organization Address City/[facility]/ZIP Co de Phone Number [facility] [address] [address] [place] [phone] * (ABNORMAL) HEMATOLOGY (04/22/2025) Only the most recent of6 resultswithin the time period is included. Pathologist [facility] [place] Hemoglobin 9.6(L) 12.0 - 16.0 g/dL [facility] Hemoglobin x 3 28.8(L) 36.0 - 48.0 % [facility] 04/22/2025 04/23/2025 9:0 0 AM CDT Narrative [facility] - 04/23/2025 Unless otherwise specified, test(s) performed at: [facility], [address] [place] [address] INTERIOR WIRER: Jose Luis France M.D. For any questions, please call customer service at FREQUENCY:OTHER Resulting Agency Comment Specimen source: Blood us Chey Navas MD LAB BLOOD ORDERABLES Final Re sult Performing Organization Address [facility] Co de Phone Number [facility] See order comments or contact performing lab Unknown, [place] * (ABNORMAL) [facility] Chemistry (04/13/2025) Only the most recent of2 resultswithin the time period is included. Pathologist [facility] [place] PTH 561(H) 16 - 80 pg/mL [facility] 04/13/2025 04/14/2025 9:5 3 AM CDT Narrative [facility] - 04/14/2025 Unless otherwise specified, test(s) performed at: [facility], [address] [place] [id number] INTERIOR WIRER: Jose Luis France M.D. For any questions, please call customer service at FREQUENCY:OTHER Resulting Agency Comment Specimen source: Plasma us Chey Navas MD LAB BLOOD ORDERABLES Final Re sult Performing Organization Address [facility] de Phone Number [facility] See order comments or contact performing lab Unknown, [place] * HD KINETICS (03/25/2025) % Urea Reduction 79 65 - 80 % [facility] 03/25/2025 03/26/2025 11: 23 AM CDT Narrative Resulting Agency Comment Specimen source: Plasma Chey Navas MD LAB BLOOD ORDERABLES Final Re sult Performing Organization Address [facility] Co de Phone Number [facility] See order comments or contact performing lab Unknown, [place] * (ABNORMAL) POST CHEMISTRY (03/25/2025) BUN Post Dialysis 5(L) 6 - 19 mg/dL [facility] 03/25/2025 03/26/2025 11: 23 AM CDT Narrative [facility] - 03/26/2025 Unless otherwise specified, test(s) performed at: [facility], [address] [place] [address] INTERIOR WIRER: Jose Luis France M.D. For any questions, please call customer service at FREQUENCY:MONTHLY Resulting Agency Comment Specimen source: Plasma us Chey Navas MD LAB BLOOD ORDERABLES Final Re sult Performing Organization Address [facility] de Phone Number [facility] See order comments or contact performing lab Unknown, [place] from Last 3 Months Insurance Medicaid [place] ([id number]) Medicare Care Teams Forensic Toxicologist Relationship Specialty Start Date End Date Alexis Garcia MD [address] [place] [phone] PCP - General Family Medicine 04/16/22
--- OUTSIDE RECORDS SUMMARY | 2025-06-06 20:18 | XMS_ITS | Continuity of Care Document ---
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 09/08/19 25 plain X-ray of chest completed [facility], DonteLJacoboCJacobo 09/13/2024 14:57:51 08/24/[address] of chest completed [facility], LJacoboL.CJacobo 08/24/2024 12:28:02 04/28/20 24 plain X-ray of chest completed [facility] 04/30/2024 11:08:42 03/31/20 24 plain X-ray of chest completed [facility] 04/01/2024 14:05:05 03/27/20 24 imaging guided percutaneous transluminal angioplasty of coronary artery with contrast completed [facility], LJacoboLJacoboCJacobo 10/05/2024 10:23:19 02/28/20 24 radiographic procedure on chest and/or abdomen completed [facility] 03/04/2024 15:02:31 02/28/[address] of abdomen completed [facility] 03/04/2024 15:03:26 01/19/20 24 diagnostic radiography of abdomen completed [facility] 01/21/2024 17:26:25 01/06/20 24 plain X-ray of chest completed [facility] 01/07/2024 15:42:42 12/27/19 24 plain X-ray of chest completed [facility] 12/29/2023 23:23:06 12/27/19 24 CT of chest, abdomen and pelvis completed [facility] 12/29/2023 23:32:58 12/24/19 24 plain X-ray of chest completed [facility] 12/29/2023 23:56:29 12/20/[address] of chest completed [facility], LJacoboLJacoboC. 12/21/2023 12:33:52 12/20/19 24 plain X-ray of chest completed [facility], LJacoboL.CJacobo 12/21/2023 12:34:44 12/09/19 24 plain X-ray of chest completed [facility] 12/12/2023 10:16:37 12/05/19 24 plain X-ray of chest completed [facility] 12/06/2023 13:24:46 11/28/19 24 cardiac catheterization completed [facility] 12/06/2023 13:11:07 11/28/19 24 imaging guided percutaneous transluminal angioplasty of coronary artery with contrast completed [facility] 10/05/2024 10:22:55 11/27/19 24 plain X-ray of chest completed [facility] 11/28/2023 10:19:35 10/24/19 24 imaging guided percutaneous transluminal angioplasty of coronary artery with contrast completed [facility] 10/05/2024 10:22:32 10/16/19 24 imaging guided percutaneous transluminal angioplasty of coronary artery with contrast completed RISHABH YOUNGER [facility].L.CJacobo 10/05/2024 10:22:12 10/07/19 24 plain X-ray of chest completed XIMENA KEATING [facility], LJacoboL.CJacobo 10/08/2023 17:52:40 09/20/19 24 echocardiography completed XIMENAMAHI KEATING [facility], LJacoboL.CJacobo 09/26/2023 12:48:56 lobectomy of lung completed XIMENA RISHABH [facility], LJacoboL.CJacobo 10/10/2023 12:32:47 amputation completed XIMENA RISHABH [facility] L.L.CJacobo 08/24/2024 12:24:04 cholecystectomy completed [facility], LJacoboL.CJacobo 09/13/2024 14:49:22 Imaging Results None recorded. Procedure Notes None recorded. Medical Equipment None Reported. Allergies Allergen ID Allergen Name Allergen Category Reaction Reaction Severity Criticality Documentation Date Start Date Code Code System Note Provider Name and Address Organization Details Recorded Time 60497 acetamino phen medicatio n abdominal pain moderate low 01/19/20232021 161 RxNorm GI upset [facility] 4 07:57:42 85104 acetamino phen medicatio n Not available Not available Not available 02/21/20242023 161 RxNorm NAJMA HOUSER, [facility] [address] [place], [address] [place] [address], [facility] 5 16:14:16 93649 ranolazin e medicatio n Not available Not available Not available 04/14/2025 55985 RxNorm Todd silveira [facility] 5 11:33:58 Medications Name [...] 1 TABLET BY MOUTH ONCE DAILY FOR BLOOD PRESSURE [...] Not Available Not Available No t Available metoclopr amide 5 mg tablet TAKE 1 TABLET BY MOUTH EVERY 8 HOURS NEEDED FOR NAUSEA AND VOMITING active Not Available Not Available No t [...] her to decrease to 100mg TID [facility] [...] completed Not Available Not Available Not Available sodium polystyre ne sulfonate 15 gram oral powder MIX AND DRINK 15 GRAMS ONCE DAILY active Not Available Not Available No t Available colchicin e 0.6 mg tablet TAKE [...] times per day 10/09 completed VO CH/jl; 58630; Recorded 05/14/20 19 10:02AM by Leydi Jessica [...] Last Updated DateTime 152.4 cm 27.7 kg/m2 34122.1 2 g 98 % 80 /min 18 /min 136/80 mm[Hg] XIMENA KEATING [facility] 5 15:40:44 Social History Question Answer Notes LastModified by Organizat ion Details LastModified Time Tobacco Smoking Status Former Smoker Quit 07/2023 XIMENA KEATING [facility] 12/24/2023 12:30:16 What Type Of Diet Are You Following? REGULAR [email or web address] Information not available 12/24/2023 Which Illicit Or Recreational Drugs Have You Used? Smokes Meth [email or web address] Information not available 10/10/2023 When Did You [...] or recreational drugs? Yes Quit Meth 07/2023 [email or web address] Information not available 12/24/2023 Do you or have you ever used any other forms of tobacco or nicotine? No Information not available 12/24/2023 What is your level of alcohol consumption? None [email or web address] Information not available 10/10/2023 Are you currently employed? No disabled [email or web address] Information not available 10/10/2023 Are you able to walk independently without assistance or assistive devices? YESASSIST [email or web address] Information not available 10/10/2023 Are you able to care for yourself independently? No Mother is her caregiver. [email or web address] Information not available 10/10/2023 Do you or have you ever used any nicotine-free cigarettes, vape, or chewing tobacco? No Information not available 12/24/2023 Mental Status None recorded. Family History Relationship Description Onset Age of this Age Resolved Age Notes LastModified by Organization Details LastModified Time Mother Myocardial infarction In her 50's [email or web address] Not available 12/29/2023 23:44:26 Mother Rheumatoid arthritis Not available 12/28 23:44:44 Brother Acute lymphoid leukemia [email or web address] Not available 10/18 18:24:23 Medical History Condition [...] pneumococcal polysaccharide PPV23 8 completed SUZANNE HEATON [address] [place], [address], [facility] 12/24/2023 12:51:09 Past Encounters Encounter ID Performer Location Encounter Start Date Encounter Closed Date Diagnosis/Indication Diagnosis SNOMED-CT Code Diagnosis ICD10 Code Diagnosis IMO Codes Diagnosis Note [id number] SUZANNE HEATON [facility] ([facility] [address] [place] [address] 04/14/2025 11:22:24 04/14/2025 14:24:51 Chronic chest pain 4491387788 91511 R07.9 G89.29 912498 Essential hypertension 84961863 I10 36574 Took her blood pressure medication about an hour ago. Pressure at home has been pretty good. Type 1 mainor betes mellitus 79377176 E10.[address] Ortega. Will schedule pump training with patient on a MWF. Will have hospital chief executive officer set up a time where she can use an exam room here. [id number] SUZANNE HEATON [facility] ([facility]) [address] [place] [address] 05/05/2025 14:52:32 05/05/2025 16:30:15 Pain of knee region 4338574066 M25.569 Chest pain 43171053 R07. 9 741241 Recurrent. Following with cardiology . Recently started colchicine daily and it has been helpful. Chronic ki dney disease stage 5 058054414 N18.5 Z99.2 Currently on dialysis. Generalize d anxiety disorder 16074344 F41.1 88333 Unable to lay still for MRI. Will [...] 05/05/2025 1 [place] Donita Aguilar [id number] Donita Aguilar 05/05/2025 2 [place] Donita Aguilar [id number] Donita Aguilar Notes Date Note Type Note Provider Name and Address Organization Details Recorded Time 05/05/2025 text/html Generalized Anxi ety DisorderReported by Patient Joint PainReported by PatientHPIFor quality, patient reportsdull. For location, patient reportsleft knee. For severity, patient reportsno change. For duration, patient reportspresent <1 month. For timing, patient reportsconstant. SUZANNE HEATON [address] [place] [address], [address], [facility] 05/06/2025 10:11:39 OBGyn Episode No OBEpisode recorded.
--- OUTSIDE RECORDS SUMMARY | 2025-06-06 20:18 | XMS_ITS | Encounter Summary ---
Author Organization [facility] [employer] [facility] Address [address] [place] [address] Phone Care Team Providers Care Sports Reporter Name Role Phone Alexis Garcia MD Primary Care Provider [phone] Encounter Details Date Type Department Care Team (Late st Contact Info) Description 12/29/2024 TCM in Dialysis [facility] [employer] [address] [place] [address] Yann Lozano NP [address] [place] [address] Social History Tobacco Use Types [...] CDT Patient: Donita Aguilar : 1985 C: [facility] Note Type: Dialysis TCM Service Date: 12/29/2024 The patient was seen for a zjon-vt-rnnu visit as part of Transitional Care Management services. Attending Stave Saw Operator: MACHO JOHANSEN Dialysis Location: [facility] Schedule: Shift: 2 INTERACTIVE CONTACT This hbjn-fj-pwdd visit occurred within 2 business days of the patient?s discharge. 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 [facility] Allergies Allergen: acetaminophen Reaction: Nausea/Vomiting [...] to follow with cardiology, pcp, pulmonology and product support specialist as noted on discharge. EDUCATION Education relevant [...] or secondary infection VISIT DIAGNOSES CPT Code 78245 - High complexity, seen within 7 days of discharge. I20.9 Angina pectoris (HCC) COMMENTS: Verified she has nitroglycerin on hand at home: reviewed appropriate usage. Instructed to call cardiology for follow up appointment K76.0 Fatty (change of) liver, not elsewhere classified COMMENTS: Newly dx on imaging. Per hospital records, has been referred to product support specialist. Monitor for liver dysfunction, assess for any needed support J18.9 Pneumonia, unspecified organism COMMENTS: Monitor for impaired perfusion, fever/chills, increased SOB. If symptoms present, send for CXray. 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 Left main has luminal irregularity with distal 10% stenosis. Cardiology recommended medical management. Negative for angina on assessment today Reviewed symptoms, usage of nitro: instructed to call cardiology for follow up appt. I28.771 Atherosclerosis of other coronary artery bypass graft(s) [...] on filedocumented in this encounter Care Teams Sports Reporter Relationship Specialty Start Date End Date Alexis Garcia MD [address] [place] [address] PCP - General Family Medicine 04/16/22 documented as of this encounter
--- OUTSIDE RECORDS SUMMARY | 2025-06-06 20:19 | XMS_ITS | Encounter Summary ---
Author Organization [facility] Address [address] [place] [address] Care Team Providers Care Cardiac Rehabilitation Specialist Name Role Phone Shravan Jones DO Primary Care Provider [phone] Encounter Details Date Type Department Care Team (Late st Contact Info) Description 01/07/2017 Lab Requisition [facility] Services [address] [place] [address] David Ortega MD [address] [place] [address] Social History Tobacco Use Types Packs/Day Years Used Date Smoking Tobacco: Every Day Cigarettes Comments:pt lethargic Comments Unknown Sex and Gender Information Value Date Recorded Sex Assigned at Not on file Legal Sex Female 4:38 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
--- OUTSIDE RECORDS SUMMARY | 2025-06-06 20:19 | XMS_ITS | Encounter Summary ---
Author Organization [facility] Address [address] [place] [address] Care Team Providers Care Hall Coordinator Name Role Phone Shravan Jones DO Primary Care Provider [phone] Encounter Details Date Type Department Care Team (Late st Contact Info) Description 01/07/2017 Lab Requisition [facility] [address] [place] [address] David Ortega MD [address] [place] [address] Social History Tobacco Use Types Packs/Day Years Used Date Smoking Tobacco: Every Day Cigarettes Comments:pt lethargic Comments Unknown Sex and Gender Information Value Date Recorded Sex Assigned at Not on file Legal Sex Female 4:38 AM HEALTH CARE LEGAL ASSISTANT Gender Identity Not on file Sexual [...] Detected Not Detected 01/07/2017 8:08 PM CDT [facility] Stool STOOL SPECIMEN / Unknown 01/07/2017 1:54 PM CDT 01/07/2017 6:53 PM CDT Narrative [facility] - 01/07/2017 8:08 PM CDT [...] MICROBIOLOGY - GENERAL ORDERAB LES Final Result [facility] CLIA# [id number] [address] [place] [address] documented in this encounter Visit Diagnoses Not on filedocumented in this encounter Care Teams Hall Coordinator Relationship Specialty Start Date End Date Shravan Jones DO PCP - General Family Practice 12/04/16 documented as of this encounter
--- OUTSIDE RECORDS SUMMARY | 2025-06-06 20:19 | XMS_ITS | Continuity of Care Document ---
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 abdomen completed [facility], [facility]L.C[facility]obo 03/04/2024 15:03:26 01/19/20 24 diagnostic radiography of abdomen completed [facility], L[facility]ob[facility].C. 01/21/2024 17:26:25 01/06/20 24 plain X-ray of chest completed [facility], LJacoboL.CJacobo 01/07/2024 15:42:42 12/27/19 24 plain X-ray of chest completed [facility] 12/29/2023 23:23:06 12/27/19 24 CT of chest, abdomen and pelvis completed [facility], L.L.CJacobo 12/29/2023 23:32:58 12/24/19 24 plain X-ray of chest completed [facility], L.L.CJacobo 12/29/2023 23:56:29 12/20/[address] of chest completed [facility], L.L.CJacobo 12/21/2023 12:33:52 12/20/19 24 plain X-ray of chest completed [facility], LJacoboL.CJacobo 12/21/2023 12:34:44 12/09/19 24 plain X-ray of chest completed [facility], L.L.CJacobo 12/12/2023 10:16:37 12/05/19 24 plain X-ray of chest completed [facility] 12/06/2023 13:24:46 11/28/19 24 cardiac catheterization completed [facility] 12/06/2023 13:11:07 11/28/19 24 imaging guided percutaneous transluminal angioplasty of coronary artery with contrast completed [facility], L.L.CJacobo 10/05/2024 10:22:55 11/27/19 24 plain X-ray of chest completed [facility] 11/28/2023 10:19:35 10/24/19 24 imaging guided percutaneous transluminal angioplasty of coronary artery with contrast completed [facility], L.L.CJacobo 10/05/2024 10:22:32 10/16/19 24 imaging guided percutaneous transluminal angioplasty of coronary artery with contrast completed [facility], [place] 10/05/2024 10:22:12 10/07/19 24 plain X-ray of chest completed XIMENA KEATING [facility], [place] 10/08/2023 17:52:40 09/20/19 24 echocardiography completed XIMENAMAHI KEATING [facility], [place] 09/26/2023 12:48:56 lobectomy of lung completed XIMENA RISHABH [facility], [place] 10/10/2023 12:32:47 amputation completed XIMENAMAHI KEATING [facility], [place] 08/24/2024 12:24:04 cholecystectomy completed XIMENAMAHI KEATING [facility], [place] 09/13/2024 14:49:22 Imaging Results None recorded. Procedure Notes None recorded. Medical Equipment None Reported. Allergies Allergen ID Allergen Name Allergen Category Reaction Reaction Severity Criticality Documentation Date Start Date Code Code System Note Provider Name and Address Organization Details Recorded Time 48073 acetamino phen medicatio n abdominal pain moderate low 01/19/20232021 161 RxNorm GI upset /into leran ce Anh coles [facility], DonteLSanju 4 07:57:42 73446 acetamino phen medicatio n Not available Not available Not available 02/21/20242023 161 RxNorm NAJMA HOUSER, [address], [address] , [facility], LJacoboLJacoboCJacobo 5 16:14:16 40134 ranolazin e medicatio n Not available Not available Not available 04/14/2025 17480 RxNorm Hallu cinat ions [facility] 5 11:33:58 Medications Name [...] her to decrease to 100mg [facility] and 02/28 Not Available [...] times per day 10/09 completed VO CH/jl; 21975; Recorded 05/14/20 19 10:02AM by Leydi Jessica [...] Last Updated DateTime 152.4 cm 27.7 kg/m2 67778.1 2 g 99 % 88 /min 18 /min 166/108 mm[Hg] 158/98 mm[Hg] XIMENA KEATING [facility] 11:38:18 Social History Question Answer Notes LastModified by Organizat ion Details LastModified Time Tobacco Smoking Status Former Smoker Quit 07/2023 XIMENA KEATING [facility] 12/24/2023 12:30:16 What Type Of Diet Are You Following? REGULAR [email or web address] Information not available 12/24/2023 Which Illicit Or Recreational Drugs Have You Used? Smokes Meth Information not available 10/10/2023 When Did You Quit Smoking? 1-5yearssin celastcigar ette Information not available 12/24/2023 What Was The Date Of Your Most Recent Tobacco Screening? 12/24/2023 Information not available 12/24/2023 What Is Your Current Pack Years? 20-29packye ars Information not available 12/24/2023 What Is Your Relationship Status? Single [email or web address] Information not available 12/24/2023 At What Age [...] is your level of alcohol consumption? None [email or web address] Information not available 10/10/2023 Are you currently employed? No disabled [email or web address] Information not available 10/10/2023 Are you able to walk independently without assistance or assistive devices? YESASSIST [email or web address] Information not available 10/10/2023 Are you able [...] Time Mother Myocardial infarction In her 50's [email or web address] Not available 12/29/2023 23:44:26 Mother Rheumatoid arthritis [email or web address] Not available 12/28 23:44:44 Brother Acute lymphoid leukemia [email or web address] Not available 10/18 18:24:23 Medical History Condition [...] pneumococcal polysaccharide PPV23 8 completed SUZANNE HEATON [address] [place], [address], [facility] 12/24/2023 12:51:09 Past Encounters Encounter ID Performer Location Encounter Start Date Encounter Closed Date Diagnosis/Indication Diagnosis SNOMED-CT Code Diagnosis ICD10 Code Diagnosis IMO Codes Diagnosis Note [id number] SUZANNE HEATON [facility] ([facility]) [address] [place] [address] 03/31/2025 10:56:17 03/31/2025 12:04:26 Chronic chest pain 2794606961 35324 R07.9 G89.29 717800 Spasm 19198901 M62.838 Pain in bi lateral legs 7587037079 3172944 M79.604 M79.605 Site-speci fic infective disorders of skin 487608101 L08.9 14668 right index finger Chronic pain syndrome 37 4089954 G89.4 56603 Gabapentin . [id number] NAJMA HOUSER, [facility] ([facility]) [address] [place] [address] 04/14/2025 11:22:24 04/14/2025 14:24:51 Chronic chest pain 5732447991 00093 R07.9 G89.29 861894 Essential hypertension 59389555 I10 86647 Took her blood pressure medication about an hour ago. Pressure at home has been pretty good. Type 1 mainor betes mellitus 58903425 E10.[address] Ortega. Will schedule pump training with patient on a MWF. Will have central office maintainer set up a time where she can use an exam room here. Health Concerns Section Related Observation LastModified by Organization Detai ls LastModified Time None Recorded Concern Status LastModified by Organization Details LastModified Time None Recorded Payers Encounter Date Sequence Insurance Name Policy Number Policy Varela Covered Member ID Varela Member ID Guarantor Name 04/14/2025 1 [place] Donita Aguilar [id number] Donita Aguilar 04/14/2025 2 [place] Donita Aguilar [id number] Donita Aguilar Notes Date Note Type Note [...] patient reportshistory of pulmonary disease. NAJMA HOUSER, [facility] [place], [address], [facility] 04/14/2025 14:09:54 OBGyn Episode No OBEpisode recorded.
--- OUTSIDE RECORDS SUMMARY | 2025-06-06 20:19 | XMS_ITS | Data Portability ---
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 [facility] 4 23:45:54 End stage renal failure on dialysis 430591789 Active 2023 ELIZABETH HOUSER, [facility] [address] [place], [address], [facility] 5 16:14:26 Esophagi tis 77158592 Active 2024 XIMENA coles [facility] 5 18:23:17 Chronic pain 38519400 Active 2024 Davian Ren MD [address] [place], [address], [facility], LJacoboLJacoboCJacobo 09:12:38 Generali zed anxiety disorder 45279444 Active 2024 ELIZABETH HOUSER, [facility] [address] [place], [address], [facility], Billie 16:12:14 Notes:Some problems listed i n Documents: #[id number], #[id number], #[id number], #[id number] could not be added to this patient's chart. Please review these documents and add these problems to the patient's chart manually as needed. Problem Notes None recorded. Procedures Surgical History Date Name Laterality Status Provider Name and Address Organization Details Recorded Time 04/28/20 25 plain X-ray of left knee region completed [facility], Billie 05/05/2025 15:02:31 04/22/20 25 plain X-ray of chest completed [facility], KaelynCJacobo 04/26/2025 19:04:48 04/07/20 25 plain X-ray of chest completed [facility], Billie 04/08/2025 12:01:33 03/28/20 25 plain X-ray of chest completed [facility], Billie 03/31/2025 11:10:09 03/21/20 25 plain X-ray of chest completed [facility], LJacoboLJacoboCJacobo 03/31/2025 11:07:12 03/04/20 25 plain X-ray of chest completed [facility], KaelynCJacobo 03/31/2025 11:09:47 12/27/[address] of chest completed [facility], KaelynCJacobo 12/27/2024 14:20:38 12/26/19 25 plain X-ray of chest completed [facility] 12/27/2024 14:13:55 11/11/19 25 plain X-ray of cervical spine completed [facility] 11/11/2024 12:44:02 10/01/19 25 angiography completed [facility] 10/01/2024 18:38:18 09/27/19 25 plain X-ray of chest completed [facility] 09/27/2024 18:18:09 09/27/19 25 echocardiography completed [facility] 10/01/2024 18:33:00 09/22/19 25 ultrasonography of right breast completed [facility] 09/21/2024 13:39:24 09/22/19 25 mammography completed [facility] 09/21/2024 13:40:36 09/11/[address] of abdomen completed [facility] 09/13/2024 14:56:32 09/10/19 25 angiography of coronary artery completed [facility] 09/13/2024 14:50:21 09/09/19 25 echocardiography completed [facility] 09/13/2024 14:54:55 09/08/19 25 plain X-ray of chest completed [facility] 09/13/2024 14:57:51 08/24/[address] of chest completed [facility] 08/24/2024 12:28:02 04/28/20 24 plain X-ray of chest completed [facility] 04/30/2024 11:08:42 03/31/20 24 plain X-ray of chest completed [facility] 04/01/2024 14:05:05 03/27/20 24 imaging guided percutaneous transluminal angioplasty of coronary artery with contrast completed [facility], LJacoboLJacoboCJacobo 10/05/2024 10:23:19 02/28/20 24 radiographic procedure on chest and/or abdomen completed [facility], LJacoboL.C. 03/04/2024 15:02:31 02/28/[address] of abdomen completed [facility], LJacoboL.CJacobo 03/04/2024 15:03:26 01/19/20 24 diagnostic radiography of abdomen completed [facility], LJacoboL.C. 01/21/2024 17:26:25 01/06/20 24 plain X-ray of chest completed [facility], LJacoboLJacoboCJacobo 01/07/2024 15:42:42 12/27/19 24 plain X-ray of chest completed [facility] 12/29/2023 23:23:06 12/27/19 24 CT of chest, abdomen and pelvis completed [facility] 12/29/2023 23:32:58 12/24/19 24 plain X-ray of chest completed [facility], LJacoboL.C. 12/29/2023 23:56:29 12/20/[address] of chest completed [facility] 12/21/2023 12:33:52 12/20/19 24 plain X-ray of chest completed [facility], LJacoboL.C. 12/21/2023 12:34:44 12/09/19 24 plain X-ray of chest completed [facility], LJacoboLJacoboCJacobo 12/12/2023 10:16:37 12/05/19 24 plain X-ray of chest completed [facility] 12/06/2023 13:24:46 11/28/19 24 cardiac catheterization completed [facility] 12/06/2023 13:11:07 11/28/19 24 imaging guided percutaneous transluminal angioplasty of coronary artery with contrast completed [facility], L.L.CJacobo 10/05/2024 10:22:55 11/27/19 24 plain X-ray of chest completed [facility], L.L.CJacobo 11/28/2023 10:19:35 10/24/19 24 imaging guided percutaneous transluminal angioplasty of coronary artery with contrast completed [facility], L.L.CJacobo 10/05/2024 10:22:32 10/16/19 24 imaging guided percutaneous transluminal angioplasty of coronary artery with contrast completed [facility], L.L.CJacobo 10/05/2024 10:22:12 10/07/19 24 plain X-ray of chest completed [facility], L.L.CJacobo 10/08/2023 17:52:40 09/20/19 24 echocardiography completed [facility] 09/26/2023 12:48:56 lobectomy of lung completed [facility] 10/10/2023 12:32:47 amputation completed [facility] 08/24/2024 12:24:04 cholecystectomy completed [facility], L.L.CJacobo 09/13/2024 14:49:22 Imaging Results None recorded. Procedure Notes None recorded. Medical Equipment None Reported. Allergies Allergen ID Allergen Name Allergen Category Reaction Reaction Severity Criticality Documentation Date Start Date Code Code System Note Provider Name and Address Organization Details Recorded Time 07081 acetamino phen medicatio n abdominal pain moderate low 01/19/20232021 161 RxNorm GI upset /into leran ce Anh coles, [facility] 4 07:57:42 90669 acetamino phen medicatio n Not available Not available Not available 02/21/20242023 161 RxNorm ELIZABETH HOUSER, [facility] [address] [place], [address] , [facility] 5 16:14:16 96381 ranolazin e medicatio n Not available Not available Not available 04/14/2025 28461 RxNorm Hallu cinat ions XIMENA RISHABH coles, [facility] 5 11:33:58 Medications Name [...] wanted her to decrease to 100mg TID [facility], 02/27 and 02/28 Not Available Not Available [...] times per day 10/09 completed VO CH/jl; 55423; Recorded 05/14/20 19 10:02AM by Leydi Jessica [...] Updated DateTime 5 152.4 cm 26.6 kg/m2 54237.5 6 g 95 % 76 /min 20 /min 138/82 mm[Hg] XIMENA RAJPUT [facility], LJacobo 5 12:04:30 Date Recorded Body height Body mass index (BMI) Body weight Oxygen saturation Heart rate Respiratory rate Body temperature Systolic And Diastolic Provider Name and Address Organization Details Last Updated DateTime 5 152.4 cm 26.8 kg/m2 98215.1 5 g 97 % 72 /min 18 /min 98 [degF] 120/70 mm[Hg] BRANDON MUJICAEMRE [facility] 5 12:37:22 Date Recorded Body height Body mass index (BMI) Body weight Oxygen saturation Heart rate Respiratory rate Systolic And Diastolic Provider Name and Address Organization Details Last Updated DateTime 5 152.4 cm 27.7 kg/m2 51780.1 2 g 98 % 78 /min 18 /min 158/82 mm[Hg] XIMENA KEATING [facility] 5 11:21:53 Date Recorded Body height Body mass index (BMI) Body weight Oxygen saturation Heart rate Respiratory rate Systolic And Diastolic Systolic And Diastolic Provider Name and Address Organization Details Last Updated DateTime 5 152.4 cm 27.7 kg/m2 54491.1 2 g 99 % 88 /min 18 /min 166/108 mm[Hg] 158/98 mm[Hg] XIMENA KEATING [facility] 5 11:38:18 Date Recorded Body height Body mass index (BMI) Body weight Oxygen saturation Heart rate Respiratory rate Systolic And Diastolic Provider Name and Address Organization Details Last Updated DateTime 5 152.4 cm 27.7 kg/m2 79885.1 2 g 98 % 80 /min 18 /min 136/80 mm[Hg] XIMENA KEATING [facility] 5 15:40:44 Social History Question Answer Notes LastModified by Organizat ion Details LastModified Time Tobacco Smoking Status Former Smoker Quit 07/2023 XIMENA KEATING [facility] 12/24/2023 12:30:16 What Type Of Diet Are You Following? REGULAR [email or web address] Information not available 12/24/2023 Which Illicit Or Recreational Drugs Have You Used? Smokes Meth [email or web address] Information not available 10/10/2023 When Did You Quit Smoking? 1-5yearssin [email or web address] ette Information not available 12/24/2023 What Was The Date Of Your Most Recent Tobacco Screening? 12/24/2023 Information not available 12/24/2023 What Is Your Current Pack Years? 20-29packye ars Information not available 12/24/2023 What Is Your Relationship Status? Single [email or web address] Information not available 12/24/2023 At What Age [...] or recreational drugs? Yes Quit Meth 07/2023 [email or web address] Information not available 12/24/2023 Do you or have you ever used any other forms of tobacco or nicotine? No Information not available 12/24/2023 What is your level of alcohol consumption? None [email or web address] Information not available 10/10/2023 Are you currently employed? No disabled [email or web address] Information not available 10/10/2023 Are you able to walk independently without assistance or assistive devices? YESASSIST [email or web address] Information not available 10/10/2023 Are you able to care for yourself independently? No Mother is her caregiver. [email or web address] Information not available 10/10/2023 Do you or have you ever used any nicotine-free cigarettes, vape, or chewing tobacco? No Information not available 12/24/2023 Mental Status None recorded. Family History Relationship Description Onset Age of this Age Resolved Age Notes LastModified by Organization Details LastModified Time Mother Myocardial infarction In her 50's [email or web address] Not available 12/29/2023 23:44:26 Mother Rheumatoid arthritis [email or web address] Not available 12/28 23:44:44 Brother Acute lymphoid leukemia [email or web address] Not available 10/18 18:24:23 Medical History Condition [...] pneumococcal polysaccharide PPV23 8 completed SUZANNE HEATON [address] [place] [address], [address], [facility], Billie 12/24/2023 12:51:09 Past Encounters Encounter ID Performer Location Encounter Start Date Encounter Closed Date Diagnosis/Indication Diagnosis SNOMED-CT Code Diagnosis ICD10 Code Diagnosis IMO Codes Diagnosis Note [id number] SUZANNE HEATON [facility] ([facility]) [address] [place] [address] 10/10/2023 11:29:12 10/10/2023 13:24:32 Uncontrolled type 1 diabetes mellitus 700212111 E10.[address] Ortega. End stage renal failure on dialysis 713073056 Z99.2 MWF dialysis. Multi vess el coronary artery disease 461636518 I25.10 Following with cardiology in [facility] Essential hypertension 01943580 I10 Coronary arteriosclerosis 05840282 I25.10 Follows with cardiology in [facility]. [id number] Matthew Packer DO [facility] ([facility]) [address] [place] [address] 12/02/2023 12:01:39 12/02/2023 13:56:02 Dental abscess 282130375 K04.7 Will start patient on lower dose amoxicilli n due to her hemodialys is status. Counseled patient that it is imperative that she see and be evaluated by a dentist in the next 2 to 4 weeks. [id number] SUZANNE HEATON [facility] ([facility]) [address] [place] [address] 12/24/2023 11:37:48 12/24/2023 14:35:44 Mixed anxiety and depressive disorder 407537188 F41.8 Essential hypertension 65176730 I10 Starting Nifedipine today. Type 1 mainor betes mellitus 77586322 E10.[address] Ortega. Pain in bi lateral legs 8344553989 3396309 M79.604 M79.608 Patient reports she took some of her mom's in the past and it was helpful. End stage renal failure on dialysis 867232631 Z99.2 MWF dialysis. [id number] SUZANNE HEATON [facility] ([facility]) [address] [place] [address] 01/07/2024 15:11:38 01/07/2024 17:49:26 Edema 208943928 R60.9 Non-pittin g lower extremity. Chest pain 31875790 R07. 9 Recurrent. Following with cardiology . Blood pres sure outside reference range 24836992 Z01.31 Will half dose of nifedipine until she is seen with cardiology . [id number] SUZANNE HEATON [facility] ([facility]) [address] [place] [address] 02/21/2024 11:42:22 02/21/2024 12:51:01 End-stage renal disease 79049340 N18.6 Continue dialysis. Essential hypertension 76365566 I10 Blood pressure good today. Continue current meds. Uncontroll ed type 1 diabetes mellitus 082831773 E10.65 Continue to follow with Dr. Ortega. Mixed anxi ety and depressive disorder 290872795 F41.8 [id number] ELIZABETH HOUSER [facility] ([facility]) [address] [place] [address] 04/01/2024 13:47:35 04/01/2024 15:21:12 Essential hypertension 70322626 I10 Monitor at home. Follow-up with cardiology . Uncontroll ed type 1 diabetes mellitus 406489865 E10.65 Continue to follow [facility] 366760712 Z30.9 Has a Nexplanon in her left arm, has not been changed for 12 years per patient Chronic low back pain 27 5301705 M54.50 Would like to see about prescripti on for Tramadol. 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 Congestive heart failure 65052880 I50.9 Follows with Cardiology . Chronic ob structive pulmonary disease 52063488 J44.9 Uses Breo. Secondary hyperaldosteronism 32356469 E26.1 Currently on dialysis. Angina pectoris 52365795 0 I20.9 Follows with cardiology , has nitrostat, recent stent. Amputated toe 046482794 Z89.429 Follows with podiatry. Chronic re current major depressive disorder 7525794 F33.1 Continue Lexapro. [id number] ELIZABETH HOUSER [facility] ([facility]) [address] [place] [address] 23666-230 5 05/01/2024 11:41:02 05/01/2024 13:20:39 Chronic chest pain [id number] 72070 R07.9 Encouraged her mother to contact cardiology for follow-up. Essential hypertension 84779666 I10 Monitor at home. Restart Coreg. Abnormal vision 4020750 H54.7 [id number] ELIZABETH HOUSER CARE SERVICES MANAGER [facility] ([facility]) [address] [place] [address] 96166-059 5 07/01/2024 13:56:52 07/01/2024 15:11:16 Essential hypertension 58153179 I10 Blood pressure this am was 125/80. Type 1 mainor betes mellitus 69169114 E10.[address] Ortega. Mixed anxi ety and depressive disorder 932028929 F41.8 Swelling of lower leg 44 8184491 R22.40 Hypoxemic respiratory failure 9365320436 3297900 J96.91 Uses oxygen at home as needed. 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 Depressive disorder 8568 9007 F33.1 Continue escitalopr am. 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 Congestive heart failure 78894782 I50.9 I50.30 Follows with Cardiology . Chronic ki dney disease stage 5 841454853 N18.5 Z99.2 Currently on dialysis. Amputated toe 982797383 Z89.429 Follows with podiatry. Low back pain 175385862 M54.50 Gabapentin . Hypertensi ve heart and renal disease with (congestive) heart failure 198737066 I13.2 Follows with Cardiology . Chronic ob structive pulmonary disease 69240373 J44.9 Uses Breo. Chronic ki dney disease due to type 2 diabetes mellitus 3510203192 08 N18.6 Currently on dialysis. [id number] ELIZABETH HOUSER [facility] ([facility]) [address] [place] [address] 17932-174 5 09/16/2024 09:15:48 09/16/2024 11:21:40 Coronary arteriosclerosis 25378532 I25.10 Recent stent placement. Anemia 715082052 D64.9 Acute supp urative otitis media without spontaneous rupture of ear drum 04109185 H66.001 Pain in bi lateral legs 8655654376 9316113 M79.604 M79.605 She has been taking 100mg three times daily but feels like it needs to be increased. [id number] EL[facility]ABETH HOUSER [facility] ([facility]) [address] [place] [address] 62731-248 5 10/05/2024 10:02:53 10/05/2024 11:11:59 Coronary atherosclerosis 498334726 I25.10 She has 8 stents now. Mixed anxi ety and depressive disorder 711181050 F41.8 She has been having vivid dreams lately revolving around her brother who recently as well as her daughter who . Hospital i npatient stay within past 30 days 5425753298 106 Z76.89 [id number] ELIZABETH HOUSER [facility] ([facility]) [address] [place] [address] 51038-521 5 11/27/2024 09:57:25 11/27/2024 10:57:38 Essential hypertension 70905810 I10 Blood pressure this am was 179/112 at home, in office is 150/80. Afternoon readings have been good. Type 1 mainor betes mellitus 71461465 E10.[address] Ortega. Pain in bi lateral legs 5118920962 9436051 M79.604 M79.605 Anxiety 08329608 F41.8 [id number] Unable to lay still for MRI. Will send in clonazepam to take prior to procedure. [id number] EL[facility]ABETH HOUSER [facility] ([facility]) [address] [place] [address] 17382-836 5 01/06/2025 11:45:44 01/06/2025 13:58:55 Chronic chest pain 5432141831 86782 R07.9 G89.29 [id number] Chronic ki dney disease stage 5 045028230 N18.5 Z99.2 Currently on dialysis. Coronary arteriosclerosis 03435451 I25.10 Recent stent placement. Follow-up with cardiology next week. Will discuss chest pain with them as well. [id number] SUZANNE HEATON [facility] ([facility]) [address] [place] [address] 62753-816 5 03/03/2025 12:06:42 03/03/2025 14:00:46 Neuropathy due to diabetes mellitus 838865047 E11.40 Decrease gabapentin to 100mg three times daily. Chronic renal failure 90 226060 N18.5 86660029 Dialysis. Hyperkalemia 21316427 E8 7.5 9805 Labs checked yesterday at Dialysis. Atypical chest pain 1025 48112 R07.89 [id number] Recurrent. Following with cardiology . Recently started Isosorbide . History of abnormal cervical Papanicolaou smear 564625194 Z87.42 2684896 [id number] SUZANNE HEATON [facility] ([facility]) [address] [place] [address] 75352-317 5 03/31/2025 10:56:17 03/31/2025 12:04:26 Chronic chest pain 3392551635 29362 R07.9 G89.29 [id number] Spasm 10832538 M62.838 Pain in bi lateral legs 0944607718 0344248 M79.604 M79.605 Site-speci fic infective disorders of skin 839817687 L08.9 95719 right index finger Chronic pain syndrome 37 1780552 G89.4 94923 Gabapentin . [id number] SUZANNE HEATON [facility] ([facility]) [address] [place] [address] 60029-132 5 04/14/2025 11:22:24 04/14/2025 14:24:51 Chronic chest pain 8190561209 86125 R07.9 G89.29 234092 Essential hypertension 90956169 I10 91452 Took her blood pressure medication about an hour ago. Pressure at home has been pretty good. Type 1 mainor betes mellitus 66296957 E10.[address] Ortega. Will schedule pump training with patient on a MWF. Will have administrative office manager set up a time where she can use an exam room here. [id number] SUZANNE HEATON [facility] ([facility]) [address] [place] [address] 05/05/2025 14:52:32 05/05/2025 16:30:15 Pain of knee region 7426381143 M25.569 Chest pain 51073675 R07. 9 [id number] Recurrent. Following with cardiology . Recently started colchicine daily and it has been helpful. Chronic ki dney disease stage 5 717117861 N18.5 Z99.2 Currently on dialysis. Generalize d anxiety disorder 11960800 F41.1 54094 Unable to lay still for MRI. Will send in clonazepam to take prior to procedure. Health Concerns Section Related Observation LastModified by Organization Detai ls LastModified Time None Recorded Concern Status LastModified by Organization Details LastModified Time None Recorded Advance Directives Directive None Recorded Payers Insurance Date Sequence Insurance Name Policy Number Policy Varela Covered Member ID Varela Member ID Guarantor Name 06/06/2025 [place] - [facility] (MEDICARE) Donita Aguialr [id number] Donita Aguilar 06/06/2025 [place] [facility] ) Donita Aguilar [id number] Donita Aguilar 06/06/2025 2 [place] Donita Aguilar [id number] Donita Aguilar 06/06/2025 1 [place] S Donita Aguilar [id number] Donita Aguilar 12/07/2024 1 [facility] ([place] - [place]) [facility] Donita Aguilar [id number] Donita Aguilar Notes Date Note Type Note Provider Name and Address Organization Details Recorded Time 5 text/htm l Angina/Chest PainReported by PatientHPIFor quality, patient reportssqueezingandsoreness. For location, patient reportsmidsternal. For severity, patient reportsmoderate. SUZANNE HEATON [address] [place] [address] [place], [address], [facility] 01/06/2025 12:54:30 5 text/htm l DyspneaReported [...] gabapentin lowered back to 100mg. ELIZABETH HOUSER, [facility] [address] [place], [address], [facility] 03/03/2025 13:06:19 5 text/htm l Angina/Chest PainReported by PatientIFor quality, patient reportsheaviness. For context, patient reportsat rest. For severity, patient reportsmoderate. For onset/timing, patient reportshas noted for yearsandintermittent. For alleviating factors, patient reportsnitroglycerinandrest. ELIZABETH HOUSER, [facility] [address] [place], [address], [facility] 03/31/2025 17:08:26 5 text/htm l DyspneaReported by PatientHPIFor quality, patient reportssqueezing,tightness,p ressure,can't catch breath,breathlessness,inabil ity to take a deep breath, andhurts to breathe. For associated symptoms, patient reportsfever,chills,weakness ,hoarseness, anddecrease in exercise capacity. For severity, patient reportsmoderateandlimits activity. For duration, patient reportsfor 2 weeks. For onset/timing, patient reportswith exertion. For pulmonary disease history, patient reportshistory of pulmonary disease. ELIZABETH HOUSER, [facility] [address] [place], [address], [facility], Jas[facility]. 04/14/2025 14:09:54 5 text/htm l Generalized Anxiety DisorderReported by Patient Joint PainReported by PatientHPIFor quality, patient reportsdull. For location, patient reportsleft knee. For severity, patient reportsno change. For duration, patient reportspresent <1 month. For timing, patient reportsconstant. ELIZABETH HOUSER, [facility] [address] [place], [address], [facility], Jas[facility]. 05/06/2025 10:11:39 OBGyn Episode No OBEpisode recorded.
--- OUTSIDE RECORDS SUMMARY | 2025-06-06 20:19 | XMS_ITS | Encounter Summary ---
Author Organization [facility], [facility] Address [address] [place] [address] Phone Care Team Providers Care Chromosomal Disorders Counselor Name Role Phone Alexis Garcia MD Primary Care Provider [phone] Encounter Details Date Type Department Care Team (Late st Contact Info) Description 06/01/2025 [facility] [address] [place] [address] Karlene Cespedes NP [address] [place] [address] End stage renal disease; Dependence [...] Dialysis Note - Karlene Cespedes NP - 06/01/2025 12:00 AM CST Patient: Donita Aguilar, 1985, 39y, F Dialysis Location: [facility] Attending Compensation And Benefits Manager: Chey Navas Service Date: 06/01/2025 Service Provider: Karlene Cespedes NP I met face to face with the patient today. OVERVIEW The patient presented with ESRD on dialysis Primary cause of renal failure: Type 1 diabetes mellitus with diabetic chronic kidney disease Comments: VSS, seen on HD machine Hx ESRD secondary to DM I. She did start dialysis about during a hospitalization in [place], [place]. Hx of meth us. She did move to to live with her mother and have more support. LAST HOSPITALIZATION Discharge Diagnosis: R07.9 Chest pain, unspecified I30.0 Acute nonspecific idiopathic pericarditis Admission Date 04/17/25 Discharge Date 04/19/25 DIALYSIS PRESCRIPTION IHD 3x Week Start date: 05/27/25 Dialyzer: FX CorAL 60 BFR: 350 DFR: Manual 800 Potassium: 2.0 Sodium: 138 EDW: 63 Duration: 3:30 Calcium: 2.5 Bicarb: 36 Rx updated on: 05/27/2025 TREATMENT ASSESSMENT Comments: Stable at goal range. Blood pressure controlled. No changes indicated. BP Stand Pre 06/01/2025: 144/93 05/29/2025: 158/88 05/27/2025: 114/64 BP Sit Pre 06/01/2025: 162/89 05/29/2025: 176/102 05/27/2025: 124/67 BP Stand Post 06/01/2025: 116/73 05/29/2025: 103/62 05/27/2025: 149/79 BP Sit Post 06/01/2025: 117/56 05/29/2025: 116/62 05/27/2025: 161/87 Prescribed Tx time 06/01/2025: 3:30 05/29/2025: 3:30 05/27/2025: 3:30 Tx Duration 06/01/2025: 3:33 05/29/2025: 3:33 05/27/2025: 3:33 Missed Treatments 0 - last 30 days 0 - last 60 days FLUID ASSESSMENT Comments: Stable. Fluid status acceptable. Interdialytic weight gain acceptable. No changes indicated. EDW (kg) 06/01/2025: 63.0 05/29/2025: 63.0 05/27/2025: 63.2 Weight Pre (kg) 06/01/2025: 65.6 05/29/2025: 64.0 05/27/2025: 63.7 Weight Post (kg) 06/01/2025: 62.9 05/29/2025: 62.7 05/27/2025: 63.0 PWV (kg) 06/01/2025: -0.1 05/29/2025: -0.3 05/27/2025: -0.2 UF Rate (mL/kg/hr) 06/01/2025: 12.1 05/29/2025: 5.8 05/27/2025: 3.1 ADEQUACY ASSESSMENT Comments: Repeat Kt/v. Adequacy target met. Prescription compliance acceptable. No changes indicated. spKt/V, URR 05/27/2025: 1.66, 77.4 05/11/2025: 1.89, 81.2 05/06/2025: 1.13, 62.5 ACCESS ASSESSMENT Access Type: AVGraft Access SubType: Synthetic - Standard (PTFE) Access Status: Active (In Use) - 10/12/2024 Access Location: Left Upper Arm Created: 08/10/2024 Flow 05/19/2025: 1347 01/19/2025: 943 12/01/2024: 1140 Vascular access reviewed. Current access is permanent and functioning well. ANEMIA ASSESSMENT Comments: On IV iron and MAX Went to hematology. She reports having Vit B12 def. Getting monthly Vit B 12 injections. HGB, TSAT 05/27/2025: 10.5, 44.0 05/19/2025: 11.0, - 05/13/2025: 9.2, - Ferritin 05/27/2025: 1011.0 03/02/2025: 698.0 11/26/2024: 784.0 Mircera, IVP (mcg) 05/25/2025: 50 05/11/2025: 50 04/13/2025: 50 Iron Sucrose (Venofer) (mg) 05/25/2025: 100 05/22/2025: 100 05/19/2025: 100 BMM ASSESSMENT Comments: Increased calcitriol. Ed to take binders and low phos diet Phos is better at goal. PTH, Intact 05/27/2025: 577.0 05/04/2025: 746.0 04/13/2025: 561.0 Calcium, Phosphorus 05/27/2025: 8.2, 5.8 04/29/2025: 8.0, 5.4 03/25/2025: 8.4, 5.2 Vitamin D (Calcitriol) Oral (mcg) 05/29/2025: 1.5 05/27/2025: 1.5 05/25/2025: 1.5 NUTRITION ASSESSMENT Comments: nPCR did drop some. Albumin is about the same. Ed to eat protein in diet. Ed on low potassium diet. Repeat potassium. Potassium, Albumin 05/27/2025: 4.3, 3.4 05/11/2025: 5.8, - 04/29/2025: 6.0, 3.4 eNPCR 05/27/2025: 0.59 05/11/2025: 0.53 05/06/2025: 0.34 DIAGNOSIS Chief Complaint: N18.6 End stage renal disease Patient data updated 06/01/2025 at 2:42 PM Signed By: Karlene Cespedes NP on 06/01/2025 2:42:58 PM documented in this encounter Plan of Treatment Not on file documented as of this encounter Visit Diagnoses Diagnosis End stage renal disease Dependence on renal dialysis documented in this encounter Care Teams Chromosomal Disorders Counselor Relationship Specialty Start Date End Date Alexis Garcia MD [address] [place] [address] PCP - General Family Medicine 04/16/22 documented as of this encounter
--- OUTSIDE RECORDS SUMMARY | 2025-06-06 20:19 | XMS_ITS | Encounter Summary ---
Author Organization [facility] Address [address] [place] [address] Care Team Providers Care Range Ecologist Name Role Phone Shravan Jones DO Primary Care Provider [phone] Encounter Details Date Type Department Care Team (Late st Contact Info) Description 12/12/2016 Nurse Only [facility] 4D Surgery Heart Lung [address] 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
--- OUTSIDE RECORDS SUMMARY | 2025-06-06 20:19 | XMS_ITS | Encounter Summary ---
Author Organization [facility] Address [address] [place] [address] Care Team Providers Care Cigarette And Filter Chief Inspector Name Role Phone Shravan Jones DO Primary Care Provider [phone] Reason for Visit * Reason Onset Date Comments Appointment Notification 11/05/2023 Encounter Details Date Type Department Care Team (Late st Contact Info) Description 11/05/2023 Telephone [facility] [address] [place] [address] Janell Beauchamp MD [address] [place] [address] Appointment Notification Social History Tobacco Use Types Packs/Day Years Used Date Smoking Tobacco: Every Day Comments:Quit smoking: pt le thargic Social Connections Answer Date Recorded In a typical week, how many times do you talk on the telephone with family, friends, or neighbors? Never 09/22/19 24 Frequency of Social Gatherings with Friends and Family Not on file 09/22/2023 Attends Christianity Services Not on file 09/21 Active Member [...] on file Legal Sex Female 3:34 PM SLIP INJECTOR AND APPLICATOR Gender Identity Not on file Sexual Orientation Not on file documented as of this encounter Miscellaneous Notes * Telephone Encounter - Patrica Barney - 11/05/2023 12:07 PM CDT Janell (Provider) MESSAGE Pt needs to cancel appt on 11/07 and would like to resched. For 11/25 as she has other appts in town that day. Please call pt to reschedule. [facility] Waiter/Waitress: Patrica Barney documented in this encounter Plan of Treatment Upcoming Encounters Date Type Department Care Team (Late st Contact Info) Description 08/18/2025 11:00 AM SLIP INJECTOR AND APPLICATOR [facility] [address] [facility] [address] [place] [address] Kellee Garcia, HAYDEE [address] [facility] [address] [place] [address] documented as of this encounter Visit Diagnoses Not on filedocumented in this encounter Additional Health Concerns Infection Onset Date Last Indicated Resolved Time R/O C. diff 07/06/2024 07/06/2024 07/06/2024 8:35 AM SLIP INJECTOR AND APPLICATOR documented as of this encounter Care Teams Cigarette And Filter Chief Inspector Relationship Specialty Start Date End Date Shravan Jones DO PCP - General Family Practice 12/04/16 documented as of this encounter
--- OUTSIDE RECORDS SUMMARY | 2025-06-06 20:19 | XMS_ITS | Encounter Summary ---
Author Organization [facility] Address [address] [place] [address] Care Team Providers Care Lab Nurse Name Role Phone Shravan Jones DO Primary Care Provider [phone] Encounter Details Date Type Department Care Team (Late st Contact Info) Description 12/31/2016 Lab Requisition [facility] [address] [place] [address] David Ortega MD [address] [place] [address] Social History Tobacco Use Types Packs/Day Years Used Date Smoking Tobacco: Every Day Cigarettes Comments:pt lethargic Comments Unknown Sex and Gender Information Value Date Recorded Sex Assigned at Not on file Legal Sex Female 4:38 AM EDUCATION OFFICER Gender Identity Not on file Sexual [...] - 2.6 mg/dL 12/31/2016 5:52 AM T [facility] Blood 12/31/2016 2:26 AM CDT 12/31/2016 5:17 AM CDT [facility] - 12/31/2016 5:52 AM CDT Due to Shell Molding Roller Blast Operator update, MG+ reference range has changed from 1.8 - 2.4 mg/dL to the new reference range of 1.6 - 2.6 mg/dL. This will have limited patient impact. us David Ortega MD CHEMISTRY ORDERABLES Final Res ult [facility] CLIA# [id number] [address] [place] [address] * (ABNORMAL) COMPREHENSIVE METABOLIC PANEL (12/31/2016 2:26 AM CDT) SODIUM 138 136 - 145 mmol/L 12/31/2016 5:52 AM CDT [facility] POTASSIUM 4.7 3.5 - 5.1 mmol/L 12/31/2016 5:52 AM [facility] CHLORIDE 102 98 - 107 mmol/L 12/31/2016 5:52 AM T [facility] CO2 27 21 - 32 mmol/L 12/31/2016 5:52 AM T [facility] CALCIUM 9.1 8.4 - 10.1 mg/dL 12/31/2016 5:52 AM T [facility] BUN 17 7 - 17 mg/dL 12/31/2016 5:52 AM T [facility] CREATININE 0.87 0.55 - 1.02 mg/dL 12/31/2016 5:52 AM T [facility] GLUCOSE 214(H) 74 - 106 mg/dL 12/31/2016 5:52 AM T [facility] TOTAL PROTEIN 8.2 6.4 - 8.2 g/dL 12/31/2016 5:52 AM T [facility] ALBUMIN 1.9(L) 3.4 - 5.0 g/dL 12/31/2016 5:52 AM CDT [facility] BILIRUBIN TOTAL 0.2 0.2 - 1.0 mg/dL 12/31/2016 5:52 AM CDT [facility] ALKALINE PHOSPHATASE 95 25 - 100 U/L 12/31/2016 5:52 AM CDT [facility] AST 9(L) 15 - 37 U/L 12/31/2016 5:52 AM CDT [facility] ALT 14 13 - 61 U/L 12/31/2016 5:52 AM CDT [facility] GFR >60 >=60 mL/min/1.7 3 sq meter 12/31/2016 5:52 AM T [facility] Comment: eGFR has not been [...] 3 sq meter 12/31/2016 5:52 AM CDT [facility] ANION GAP 9 4 - 30 mmol/L 12/31/2016 5:52 AM T [facility] Blood 12/31/2016 2:26 AM CDT 12/31/2016 5:17 AM CDT us David Ortega MD CHEMISTRY ORDERABLES Final Res ult [facility] CLIA# [id number] [address] [place] [address] * (ABNORMAL) CBC WITH DIFFERENTIAL (12/31/2016 2:26 AM CDT) WBC 13.7(H) 4.5 - 11.0 K/uL 12/31/2016 6:32 AM [facility] RBC 3.66(L) 4.20 - 5.40 M/uL 12/31/2016 6:32 AM [facility] HEMOGLOBIN 9.3(L) 12.0 - 16.0 g/dL 12/31/2016 6:32 AM [facility] [employer] [facility] HEMATOCRIT 29.6(L) 36.0 - 46.0 % 12/31/2016 6:32 AM [facility] [employer] [facility] MCV 80.9(L) 84.0 - 103.0 fL 12/31/2016 6:32 AM [facility] [employer] [facility] MCH 25.4(L) 27.0 - 34.0 pg 12/31/2016 6:32 AM [facility] MCHC 31.4 30.0 - 35.0 g/dL 12/31/2016 6:32 AM [facility] [employer] [facility] RDW 17.4(H) 11.0 - 14.5 % 12/31/2016 6:32 AM [facility] [employer] [facility] RDW-STDEV 52.1 37.0 - 54.0 fL 12/31/2016 6:32 AM [facility] [employer] [facility] PLATELETS 767(H) 140 - 440 K/uL 12/31/2016 6:32 AM [facility] [employer] [facility] MPV 9.0 8.9 - 12.8 fL 12/31/2016 6:32 AM [facility] [employer] [facility] NEUTROPHILS 68 42 - 75 % 12/31/2016 6:32 AM [facility] [employer] [facility] LYMPHOCYTES 17(L) 24 - 44 % 12/31/2016 6:32 AM [facility] [employer] [facility] MONOCYTES 8 2 - 10 % 12/31/2016 6:32 AM [facility] [employer] [facility] EOSINOPHILS 6 0 - 7 % 12/31/2016 6:32 AM [facility] [employer] [facility] BASOPHILS 0 0 - 1 % 12/31/2016 6:32 AM [facility] [employer] [facility] IMMATURE GRANULOCYTES 1 0 - 2 % 12/31/2016 6:32 AM CDT [facility] NEUTROPHIL ABSOLUTE 9.26(H) 2.00 - 8.00 K/uL 12/31/2016 6:32 AM CDT [facility] LYMPHOCYTE ABSOLUTE 2.28 1.20 - 4.00 K/uL 12/31/2016 6:32 AM CDT [facility] MONOCYTE ABSOLUTE 1.07(H) 0.10 - 0.60 K/uL 12/31/2016 6:32 AM CDT [facility] EOSINOPHIL ABSOLUTE 0.82(H) 0.00 - 0.70 K/uL 12/31/2016 6:32 AM CDT [facility] BASOPHILS ABSOLUTE 0.06 0.00 - 0.20 K/uL 12/31/2016 6:32 AM CDT [facility] IMMATURE GRANULOCYTES ABSOLUTE 0.17(H) 0.00 - 0.10 K/uL 12/31/2016 6:32 AM CDT [facility] Blood 12/31/2016 2:26 AM CDT 12/31/2016 5:17 AM CDT Narrative [facility] - 12/31/2016 6:32 AM CDT Smear reviewed us David Ortega MD HEMATOLOGY ORDERABLES Final Re sult [facility] CLIA# [id number] [address] [place] [address] documented in this encounter Visit Diagnoses Not on filedocumented in this encounter Care Teams Lab Nurse Relationship Specialty Start Date End Date Shravan Jones DO PCP - General Family Practice 12/04/16 documented as of this encounter
--- OUTSIDE RECORDS SUMMARY | 2025-06-06 20:19 | XMS_ITS | Clinical Summary ---
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 BED LASTER Gender Identity Not on file Sexual Orientation [...] Required) Completed Medical Devices Implanted Type Area Industrial Chemist Device Identifier Shelf Expiration Date Model / Serial / Lot Max dailym Flour [id number] - [id number] Implanted:Qty: 2 on 12/17/2016 by Deandre Alan MD at [facility] Biological Left: Lung CR BARD[employer] 09/19/2019 [id number] / / [id number] Control Implant Funmi Procedures Procedure Name Priority Date/Time Associated Diagnosis Comments HEMOGLOBIN A1C Routine 01/09/2017 2:52 AM CDT from Last 3 Months or Most Recently Relevant to Health Maintenance Results * (ABNORMAL) HEMOGLOBIN A1C (01/09/2017 2:52 AM CDT) HEMOGLOBIN A1C 8.9(H) 4.0 - 6.0 % 01/09/2017 1:31 PM CDT [facility] EST. AVG GLUCOSE, A1C 209 mg/dL 01/09/2017 1:31 PM CDT [facility] Blood 01/09/2017 2:52 AM CDT 01/09/2017 6:53 AM CDT Narrative [facility] - 01/09/2017 1:31 PM CDT Test performed on AllihubII instrumentation using HPLC methodology us Izabela Diamond MD CHEMISTRY ORDERABLES Final Res ult [facility] CLIA# [id number] [address] [place] [address] from Last 3 Months or Most Recently Relevant to [place] [address] [facility] MEDICAID Advance Directives For more information, please contact: [phone] * Full Code (Latest Code Status on File) Date Activated Date Inactivated Comments 12/17/2016 1:05 PM 12/27/2016 11:32 PM Care Teams Predator Control Trapper Relationship Specialty Start Date End Date Shravan Jones DO PCP - General Family Practice 12/04/16
--- OUTSIDE RECORDS SUMMARY | 2025-06-06 20:19 | XMS_ITS | Encounter Summary ---
Author Organization [facility] Address [address] [place] [address] Phone Care Team Providers Care Centerless Grinder Tender Name Role Phone Alexis Garcia MD Primary Care Provider [phone] Encounter Details Date Type Department Care Team (Late st Contact Info) Description 06/03/2025 Orders Only [facility] [address] [place] [address] Chey Navas MD [address] [place] [address] Social History Tobacco Use Types [...] Date/Time Associated Diagnosis Comments HEMOGLOBIN Routine 06/03/2025 documented in this encounter Results * (ABNORMAL) Hemoglobin (06/03/2025) Hemoglobin 11.1(L) 11.7 - 14.0 g/dL [facility] 06/03/2025 06/02/2025 8:4 8 AM RECONCILIATION COORDINATOR Narrative Resulting Agency Comment Performing Organization Information: Site ID: [id number] Name: [employer] Address: [address] [address] Director: Jennifer De Jesus MD us Chey Navas MD LAB BLOOD ORDERABLES Final Re sult [facility] [address] [place] [address] documented in this encounter Visit Diagnoses Not on filedocumented in this encounter Care Teams Centerless Grinder Tender Relationship Specialty Start Date End Date Alexis Garcia MD [address] [place] [address] PCP - General Family Medicine 04/16/22 documented as of this encounter
--- OUTSIDE RECORDS SUMMARY | 2025-06-06 20:19 | XMS_ITS | Encounter Summary ---
Author Organization [facility] Address [address] [place] [address] Care Team Providers Care Hydraulic Corrugating Machine Operator Name Role Phone Shravan Jones DO Primary Care Provider [phone] Encounter Details Date Type Department Care Team (Late st Contact Info) Description 12/28/2016 Lab Requisition [facility] Services [address] [place] [address] David Ortega MD [address] [place] [address] Social History Tobacco Use Types Packs/Day Years Used Date Smoking Tobacco: Every Day Cigarettes Comments:pt lethargic Comments Unknown Sex and Gender Information Value Date Recorded Sex Assigned at Not on file 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 Gender Identity Not on file Sexual Orientation [...] - 4.9 mg/dL 12/28/2016 5:42 AM CDT [facility] Blood Collection / Unknown 12/28/2016 2:39 AM CDT 12/28/2016 5:01 AM CDT David Ortega MD CHEMISTRY ORDERABLES Final Res ult Performing Organization Address [facility] Co de Phone Number [facility] CLIA# [id number] [address] [place] [address] [id number] * MAGNESIUM LEVEL (12/28/2016 2:39 AM CDT) [facility] MAGNESIUM 1.6 1.6 - 2.6 mg/dL 12/28/2016 5:42 AM CDT [facility] Blood Collection / Unknown 12/28/2016 2:39 AM CDT 12/28/2016 5:01 AM CDT Narrative [facility] - 12/28/2016 5:42 AM CDT Due to Associate Professor Of Engineering update, MG+ reference range has changed from 1.8 - 2.4 mg/dL to the new reference range of 1.6 - 2.6 mg/dL. This will have limited patient impact. David Ortega MD CHEMISTRY ORDERABLES Final Res ult Performing Organization Address [facility] Co de Phone Number [facility] CLIA# [id number] [address] [place] [address] * PROTIME-INR (12/28/2016 2:39 AM CDT) [facility] PROTIME 15.0 12.3 - 15.5 Seconds 12/28/2016 5:16 AM CDT [facility] INR 1.1 0.8 - 1.2 12/28/2016 5:16 AM CDT [facility] Blood Collection / Unknown 12/28/2016 2:39 AM CDT 12/28/2016 5:01 AM CDT [facility] - 12/28/2016 5:16 AM CDT Expected Values for INR: DVT/PE Goal INR 2.5; range 2.0 - 3.0 Valve Replacement Tissue Goal INR 2.5; range 2.0 - 3.0 Valve Replacement Mechanical Goal INR 3.0; range 2.5 - 3.5 POST-IL Goal INR 2.5; range 2.0 - 3.0 or Goal INR 3.0; range 2.5 - 3.5 Atrial Fibrillation Goal INR 2.5; range 2.0 - 3.0 Ischemic Stroke Goal INR 2.5; range 2.0 - 3.0 For additional information see Guidelines for Anticoagulation available from the pharmacy Wendy Vargas Pharm D. David Ortega MD HEMATOLOGY ORDERABLES Final Re sult [facility] CLIA# [id number] [address] [place] [address] * (ABNORMAL) PTT (12/28/2016 2:39 AM CDT) PTT 39.1(H) 24.8 - 38.8 seconds 12/28/2016 5:16 AM CDT [facility] Blood Collection / Unknown 12/28/2016 2:39 AM CDT 12/28/2016 5:01 AM CDT [facility] - 12/28/2016 5:16 AM CDT Therapeutic Range: Hi-level PE/DVT heparin protocol 80.1 - 95.0 sec Lo-level PE/DVT heparin protocol 70.1 - 85.0 sec Cardiac Heparin Protocol 70.1 - 100.0 sec David Ortega MD HEMATOLOGY ORDERABLES Final Re sult [facility] CLIA# [id number] [facility] [place] [address] * (ABNORMAL) CBC WITH DIFFERENTIAL (12/28/2016 2:39 AM CDT) Pathologist [facility] WBC 11.0 4.5 - 11.0 K/uL 12/28/2016 5:09 AM CDT [facility] RBC 3.80(L) 4.20 - 5.40 M/uL 12/28/2016 5:09 AM CDT [facility] HEMOGLOBIN 9.3(L) 12.0 - 16.0 g/dL 12/28/2016 5:[facility] 30.6(L) 36.0 - 46.0 % 12/28/2016 5:09 AM CDT [facility] MCV 80.5(L) 84.0 - 103.0 fL 12/28/2016 5:09 AM CDT [facility] MCH 24.5(L) 27.0 - 34.0 pg 12/28/2016 5:09 AM CDT [facility] MCHC 30.4 30.0 - 35.0 g/dL 12/28/2016 5:09 AM CDT [facility] RDW 17.3(H) 11.0 - 14.5 % 12/28/2016 5:09 AM T [facility] RDW-STDEV 51.8 37.0 - 54.0 fL 12/28/2016 5:09 AM CDT [facility] PLATELETS 757(H) 140 - 440 K/uL 12/28/2016 5:09 AM CDT [facility] MPV 8.9 8.9 - 12.8 fL 12/28/2016 5:09 AM CDT [facility] NEUTROPHILS 65 42 - 75 % 12/28/2016 5:09 AM CDT [facility] LYMPHOCYTES 19(L) 24 - 44 % 12/28/2016 5:09 AM CDT [facility] MONOCYTES 10 2 - 10 % 12/28/2016 5:09 AM CDT [facility] EOSINOPHILS 5 0 - 7 % 12/28/2016 5:09 AM CDT [facility] BASOPHILS 1 0 - 1 % 12/28/2016 5:09 AM CDT [facility] IMMATURE GRANULOCYTES 1 0 - 2 % 12/28/2016 5:09 AM CDT [facility] NEUTROPHIL ABSOLUTE 7.19 2.00 - 8.00 K/uL 12/28/2016 5:09 AM CDT [facility] LYMPHOCYTE ABSOLUTE 2.04 1.20 - 4.00 K/uL 12/28/2016 5:09 AM CDT [facility] MONOCYTE ABSOLUTE 1.06(H) 0.10 - 0.60 K/uL 12/28/2016 5:09 AM CDT [facility] EOSINOPHIL ABSOLUTE 0.60 0.00 - 0.70 K/uL 12/28/2016 5:09 AM CDT [facility] BASOPHILS ABSOLUTE 0.07 0.00 - 0.20 K/uL 12/28/2016 5:09 AM CDT [facility] IMMATURE GRANULOCYTES ABSOLUTE 0.07 0.00 - 0.10 K/uL 12/28/2016 5:09 AM T [facility] Blood Collection / Unknown 12/28/2016 2:39 AM CDT 12/28/2016 5:01 AM CDT us David Ortega MD HEMATOLOGY ORDERABLES Final Re sult [facility] CLIA# [id number] [address] [place] [address] * (ABNORMAL) COMPREHENSIVE METABOLIC PANEL (12/28/2016 2:39 AM CDT) SODIUM 143 136 - 145 mmol/L 12/28/2016 5:47 AM CDT [facility] POTASSIUM 3.3(L) 3.5 - 5.1 mmol/L 12/28/2016 5:47 AM [facility] CHLORIDE 103 98 - 107 mmol/L 12/28/2016 5:47 AM [facility] CO2 29 21 - 32 mmol/L 12/28/2016 5:47 AM [facility] CALCIUM 8.9 8.4 - 10.1 mg/dL 12/28/2016 5:47 AM [facility] BUN 13 7 - 17 mg/dL 12/28/2016 5:47 AM [facility] CREATININE 0.70 0.55 - 1.02 mg/dL 12/28/2016 5:47 AM [facility] GLUCOSE 46(LL) 74 - 106 mg/dL 12/28/2016 5:47 AM [facility] TOTAL PROTEIN 8.2 6.4 - 8.2 g/dL 12/28/2016 5:47 AM [facility] ALBUMIN 1.8(L) 3.4 - 5.0 g/dL 12/28/2016 5:47 AM [facility] BILIRUBIN TOTAL 0.2 0.2 - 1.0 mg/dL 12/28/2016 5:47 AM [facility] ALKALINE PHOSPHATASE 93 25 - 100 U/L 12/28/2016 5:47 AM [facility] AST 18 15 - 37 U/L 12/28/2016 5:47 AM [facility] ALT 18 13 - 61 U/L 12/28/2016 5:47 AM [facility] GFR >60 >=60 mL/min/1.7 3 sq meter 12/28/2016 5:47 AM [facility] Comment: eGFR has not [...] 5:47 AM CDT [facility] ANION GAP 11 4 - 30 mmol/L 12/28/2016 5:47 AM CDT [facility] Blood Collection / Unknown 12/28/2016 2:39 AM CDT 12/28/2016 5:01 AM CDT us David Ortega MD CHEMISTRY ORDERABLES Final Res ult [facility] CLIA# [id number] [address] [place] [address] documented in this encounter Visit Diagnoses Not on filedocumented in this encounter Care Teams Hydraulic Corrugating Machine Operator Relationship Specialty Start Date End Date Shravan Jones DO PCP - General Family Practice 12/04/16 documented as of this encounter
--- OUTSIDE RECORDS SUMMARY | 2025-06-06 20:19 | XMS_ITS | Encounter Summary ---
Author Organization [facility] Address [address] [place] [address] Care Team Providers Care Licensed Marine Engineer Name Role Phone Shravan Jones DO Primary Care Provider [phone] Encounter Details Date Type Department Care Team (Late st Contact Info) Description 01/09/2017 Lab Requisition [facility] Services [facility] [address] [place] [address] Izabela Diamond MD NO ADDRESS ON FILE Social History Tobacco Use Types Packs/Day Years Used Date Smoking Tobacco: Every Day Cigarettes Comments:pt lethargic Comments Unknown Sex and Gender Information Value Date Recorded Sex Assigned at Not on file 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 This will have limited patient impact. us Izabela Diamond MD CHEMISTRY ORDERABLES Final Res ult [facility] CLIA# [id number] [address] [place] [address] * (ABNORMAL) COMPREHENSIVE METABOLIC PANEL (01/09/2017 3:15 AM CDT) SODIUM 139 136 - 145 mmol/L 01/09/2017 5:53 AM CDT [facility] POTASSIUM 4.1 3.5 - 5.1 mmol/L 01/09/2017 5:53 AM T [facility] CHLORIDE 101 98 - 107 mmol/L 01/09/2017 5:53 AM T [facility] CO2 28 21 - 32 mmol/L 01/09/2017 5:53 AM T [facility] CALCIUM 8.8 8.4 - 10.1 mg/dL 01/09/2017 5:53 AM T [facility] BUN 18(H) 7 - 17 mg/dL 01/09/2017 5:53 AM T [facility] CREATININE 0.73 0.55 - 1.02 mg/dL 01/09/2017 5:53 AM T [facility] GLUCOSE 182(H) 74 - 106 mg/dL 01/09/2017 5:53 AM T [facility] TOTAL PROTEIN 8.4(H) 6.4 - 8.2 g/dL 01/09/2017 5:53 AM T [facility] ALBUMIN 2.5(L) 3.4 - 5.0 g/dL 01/09/2017 5:53 AM CDT [facility] BILIRUBIN TOTAL 0.2 0.2 - 1.0 mg/dL 01/09/2017 5:53 AM CDT [facility] ALKALINE PHOSPHATASE 99 25 - 100 U/L 01/09/2017 5:53 AM CDT [facility] AST 30 15 - 37 U/L 01/09/2017 5:53 AM CDT [facility] ALT 27 13 - 61 U/L 01/09/2017 5:53 AM CDT [facility] GFR >60 >=60 mL/min/1.7 3 sq meter 01/09/2017 5:53 AM T [facility] Comment: eGFR has not been [...] 3 sq meter 01/09/2017 5:53 AM CDT [facility] ANION GAP 10 4 - 30 mmol/L 01/09/2017 5:53 AM T [facility] Blood 01/09/2017 3:15 AM CDT 01/09/2017 5:12 AM CDT us Izabela Diamond MD CHEMISTRY ORDERABLES Final Res ult [facility] CLIA# [id number] [address] [place] [address] * (ABNORMAL) CBC WITH DIFFERENTIAL (01/09/2017 3:15 [...] - 8.00 K/uL 01/09/2017 5:20 AM CDT [facility] LYMPHOCYTE ABSOLUTE 2.86 1.20 - 4.00 K/uL 01/09/2017 5:20 AM CDT [facility] MONOCYTE ABSOLUTE 0.73(H) 0.10 - 0.60 K/uL 01/09/2017 5:20 AM CDT [facility] EOSINOPHIL ABSOLUTE 0.95(H) 0.00 - 0.70 K/uL 01/09/2017 5:20 AM CDT [facility] BASOPHILS ABSOLUTE 0.11 0.00 - 0.20 K/uL 01/09/2017 5:20 AM CDT [facility] IMMATURE GRANULOCYTES ABSOLUTE 0.03 0.00 - 0.10 K/uL 01/09/2017 5:20 AM CDT [facility] Blood 01/09/2017 3:15 AM CDT 01/09/2017 5:12 AM CDT us Izabela Diamond MD HEMATOLOGY ORDERABLES Final Re sult [facility] CLIA# [id number] [address] [place] [address] * (ABNORMAL) HEMOGLOBIN A1C (01/09/2017 2:52 AM CDT) HEMOGLOBIN A1C 8.9(H) 4.0 - 6.0 % 01/09/2017 1:31 PM CDT [facility] EST. AVG GLUCOSE, A1C 209 mg/dL 01/09/2017 1:31 PM CDT [facility] Blood 01/09/2017 2:52 AM CDT 01/09/2017 6:53 AM CDT Narrative [facility] - 01/09/2017 1:31 PM CDT Test performed on Dumbstruck instrumentation using HPLC methodology us Izabela Diamond MD CHEMISTRY ORDERABLES Final Res ult [facility] CLIA# [id number] [address] [place] [address] documented in this encounter Visit Diagnoses Not on filedocumented in this encounter Care Teams Licensed Marine Engineer Relationship Specialty Start Date End Date Shravan Jones DO PCP - General Family Practice 12/04/16 documented as of this encounter
--- OUTSIDE RECORDS SUMMARY | 2025-06-06 20:19 | XMS_ITS | Encounter Summary ---
Author Organization [facility] Address [address] [place] [address] Care Team Providers Care Medical Apparatus Model Maker Name Role Phone Shravan Jones DO Primary Care Provider [phone] Encounter Details Date Type Department Care Team (Latest Contact Info) Description 05/14/2003 Outpatient [facility] Oral and Maxillo Surgery[address] [place] [address] Jmimy Tineo, CLIVES NO ADDRESS ON FILE UNSPEC DENTAL CARIES (Primary Dx); TOOTH POSITION ANOMALY Social History Tobacco Use Types Packs/Day Years Used Date Smoking Tobacco: Never Assessed Comments Unknown Sex and Gender Information Value Date Recorded Sex Assigned at Not on file 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
--- OUTSIDE RECORDS SUMMARY | 2025-06-06 20:19 | XMS_ITS | Clinical Summary ---
Author Organization [facility] Address [address] [facility] Attn: [place] [address] Care Team Providers Care Hand Tube Bender Name Role Phone Shravan Jones DO Primary Care Provider [phone] Allergies Active Allergy Reactions Criticality Noted Date [...] subcutaneous injection. Active naloxone (NARCAN) 4 mg/spray [place], Non-Aerosol EMERGENCY USE ONLY: Administer 1 spray [...] regarding vascular access for dialysis for ESRD ([facility]) Take 1 Tablet (5 mg) by mouth [...] troponin 09/22/2023 Coronary artery disease invo lving [place] coronary artery of [place] heart without angina pectoris 09/21/2023 End [...] Encounters Date Type Department Care Team Description 06/01/2025 External Device Data [facility] ABSTRACTION Provider, Abstract 04/21/2025 External Device Data [facility] ABSTRACTION Provider, [...] and Family Not on file 09/22/2023 Attends [employer] Not on file 09/21 Active Member [...] on file Legal Sex Female 3:34 PM UPHOLSTERER INSIDE Gender Identity Not on file Sexual Orientation [...] st Contact Info) Description 08/18/2025 11:00 AM UPHOLSTERER INSIDE Office Visit [facility] G[facility]- [address] [place] [address] Kellee Garcia Sandoval, SOFTWARE TEST TECHNICIAN [address] [facility] [address] [place] [address] Health Maintenance Due Date Last [...] Required) Completed Medical Devices Implanted Type Area Luggage Maker Device Identifier Shelf Expiration Date Model / Serial / Lot Max 1gm Flour [id number] - [id number] Implanted:Qty : 2 on 12/17/2016 by Deandre Alan MD Biological Left: Lung CR [employer]ARD[employer] 09/19/2019 [id number] / / [id number] Cath Dialysis Glidepath 14.5fr 24cm Std [id number] - [id number] Implanted:Qty : 1 on 03/18/2024 by Asif Mcclellan MD at [facility] Catheter Right: Chest BARD ANGEL VASC 09/21/2025 [id number] / / [id number] Clip Ligating Horizon Red [id number] - [facility] - [id number] Implanted:Qty : 1 on 08/10/2024 by Chato Fitch MD at [facility] Clip Left: Arm [employer] INC [id number] 05/16/2029 [id number] / / [id number] Clip Ligating Horizon Med Ti 929544 - Csc - [id number] Implanted:Qty : 1 on 08/10/2024 by Chato Fitch MD at [facility] Clip Left: Arm TELEFLEX- WECK CLOSURE SYS [id number] 03/31/2029 [id number] / / [id number] Academic Advising Director Ligaclip Sml Mcs20 - [id number] Implanted:Qty : 1 on 08/10/2024 by Chato Fitch MD at [facility] Clip Left: Arm J&J- [employer] [id number] 03/23/2029 MCS20 / / [id number] Closure Perclose Prostyle Sut Mediate 33860-77 - [id number] Implanted:Qty : 1 on 09/24/2023 by Janell Beauchamp MD at [facility] Closure Device N/A: Groin LOVE- VASC DEVICE [id number] 06/23/2025 83522-58 / / [id number] Closure Perclose Prostyle Sut Mediate 69403-55 - [id number] Implanted:Qty : 1 on 10/24/2023 by Janell Beauchamp MD at [facility] Closure Device Right: Groin LOVE- VASC DEVICE [id number] 07/24/2025 67612-52 / / [id number] Oil Slc 8.5ml [id number] - Sgtin:[id number] Implanted:Qty : 1 on 06/23/2024 by Janey Carrera MD at [facility] National Eye Right: Eye [employer] [employer] 12/21/2026 [id number] / GTIN:[id number] / [id number] Graft Vasc Propaten 4-3maa59pl [id number] - [id number] Implanted:Qty : 1 on 08/10/2024 by Chato Fitch MD at [facility] Graft Left: Arm [employer] [id number] 05/21/2027 [id number] / [id number] / Agent Hemostat Surgicel 2x3in 1952s - [id number] Implanted:Qty : 1 on 08/10/2024 by Chato Fitch MD at [facility] Hemostatic Left: Arm J&J- ETHICON INC [id number] 12/21/20281952S / / [id number] Hemostatic Surgiflo 8ml W/ Thrombin 2994 - [id number] Implanted:Qty : 1 on 08/10/2024 by Chato Fitch MD at [facility] Hemostatic Left: Arm J&J- ETHICON INC [id number] 10/21/2025 2994 / / [id number] Agent Hemostat Surgicel 2x3in 1952s - [id number] Implanted:Qty : 1 on 08/10/2024 by Chato Fitch MD at [facility] Hemostatic Left: Arm J&J- ETH[employer]ON INC [id number] 12/21/20281952S / / [id number] Stent Synergy Xd 3.0x48mm Evrlms Elut [id number] 0 - [id number] Implanted:Qty : 1 on 09/24/2023 by Janell Beauchamp MD at [facility] Stent N/A: Coronary [employer] [id number] 03/31/2025 [id number] 300 / / [id number] Stent Synergy Xd 2.26n04td Evrlms Elut [id number] 0 - [id number] Implanted:Qty : 1 on 10/24/2023 by Janell Beauchamp MD at [facility] Stent Left: Coronary [employer] [id number] 08/19/2024 [id number] 220 / / [id number] Control Implant Funmi Procedures Procedure Name Priority Date/Time Associated Diagnosis Comments LIPID PANEL Routine 09/21/2023 6:47 PM CDT HEMOGLOBIN A1C Routine 09/21/2023 6:46 PM CDT from Last 3 Months or Most Recently Relevant to Health Maintenance Results * (ABNORMAL) LIPID PANEL (09/21/2023 6:47 PM CDT) [facility] Signature CHOLESTEROL 96 <200 mg/dL 09/21/2023 10:29 PM CDT [facility] TRIGLYCERIDE 164(H) <150 mg/dL 09/21/2023 10:29 PM CDT [facility] HDL 36(L) 40 - 59 mg/dL 09/21/2023 10:29 PM CDT [facility] LDL CALCULATED 27 <100 mg/dL 09/21/2023 10:29 PM CDT [facility] NON-HDL CHOLESTEROL 60 <130 mg/dL 09/21/2023 10:29 PM CDT [facility] Blood Venipuncture / Unknown 09/21/2023 6:47 PM CDT 09/21/2023 7:10 PM CDT Narrative [facility] - 09/21/2023 10:29 PM CDT TOTAL [...] Lacy MD CHEMISTRY ORDERABLES Final R esult [facility] CLIA # [id number] [address] [place] [address] [place] [address] * (ABNORMAL) HEMOGLOBIN A1C (09/21/2023 6:46 PM CDT) HEMOGLOBIN A1C 6.8(H) <=5.6 % 09/23/2023 9:24 AM CD[address] [facility] [employer] [facility] EST. AVG GLUCOSE, A1C 148 mg/dL 09/23/2023 9:24 AM CDT [facility] Blood Venipuncture / Unknown 09/21/2023 6:46 PM CDT 09/21/2023 7:08 PM CDT Narrative [facility] - 09/23/2023 9:24 AM CDT HGB A1C INTERPRETATION NORMAL: <5.7% PRE-DIABETES: 5.7 - 6.4% DIABETES: 6.5% OR GREATER Luiz Lacy MD CHEMISTRY ORDERABLES Final R esult [facility] CLIA # [id number] [place] [address] from Last 3 Months or Most Recently Relevant to Health Maintenance Insurance MEDICAID [place]ICARE PART A [place] B Advance Directives For more information, please contact: [phone] * Full Code (Latest Code Status on File) Date Activated Date Inactivated Comments 10/24/2023 2:34 PM 10/25/2023 11:47 AM * Full Code Date Activated Date Inactivated Comments 10/24/2023 9:13 AM 10/24/2023 2:34 PM * Full Code Date Activated Date Inactivated Comments 09/24/2023 3:14 PM 09/25/2023 9:51 PM * Full Code Date Activated Date Inactivated Comments 09/21/2023 5:50 PM 09/24/2023 3:14 PM Care Teams [employer] Relationship Specialty Start Date End Date Shravan Jones DO PCP - General Family Practice 12/04/16
--- OUTSIDE RECORDS SUMMARY | 2025-06-06 20:19 | XMS_ITS | Encounter Summary ---
Author Organization [facility] Address [address] [place] [address] Phone Care Team Providers Care Pro Shop Attendant Name Role Phone Alexis Garcia MD Primary Care Provider [phone] Encounter Details Date Type Department Care Team (Late st Contact Info) Description 04/16/2022 Orders Only [facility] [address] [place] [address] Chronic kidney disease, Stage IV [...] (severe) documented in this encounter Care Teams Pro Shop Attendant Relationship Specialty Start Date End Date Alexis Garcia MD [address] [place] [address] PCP - General Family Medicine 04/16/22 documented as of this encounter
--- OUTSIDE RECORDS SUMMARY | 2025-06-06 20:19 | XMS_ITS | Encounter Summary ---
Author Organization [facility] Address [address] [place] [address] Care Team Providers Care Manager Inventory Management Name Role Phone Shravan Jones DO Primary Care Provider [phone] Encounter Details Date Type Department Care Team (Late st Contact Info) Description 06/01/2025 External Device Data [facility] ABSTRACTION Provider, Abstract NO ADDRESS ON FILE Social History Tobacco Use Types Packs/Day Years Used Date Smoking Tobacco: Former Cigarettes 0 Q uit: 08/05/2023 Comments:Quit smoking: pt le thargic Alcohol Use Standard Drinks/Week Comments Not Currently 0 (1 standard drink = 0.6 oz pur e alcohol) Social Connections Answer Date Recorded In a typical week, how many times do you talk on the telephone with family, friends, or neighbors? 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 [facility] [address] [place] [address] Kellee Garcia, RECYCLING OPERATIONS MANAGER [address] [facility] [address] [place] [address] documented as of this encounter Visit Diagnoses Not on filedocumented in this encounter Care Teams Manager Inventory Management Relationship Specialty Start Date End Date Shravan Jones DO PCP - General Family Practice 12/04/16 documented as of this encounter
--- OUTSIDE RECORDS SUMMARY | 2025-06-06 20:19 | XMS_ITS | Encounter Summary ---
Author Organization [facility] Address [address] [place] [address] Care Team Providers Care Quarry Plug And Feather Driller Name Role Phone Shravan Jones DO Primary Care Provider [phone] Encounter Details Date Type Department Care Team (Late st Contact Info) Description 01/07/2017 Lab Requisition [facility] [address] [place] [address] Izabela Diamond MD NO ADDRESS ON FILE Social History Tobacco Use Types Packs/Day Years Used Date Smoking Tobacco: Every Day Cigarettes Comments:pt lethargic Comments Unknown Sex and Gender Information Value Date Recorded Sex Assigned at Not on file 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 Gender Identity Not on file Sexual [...] - 40 mg/dL 01/07/2017 5:27 AM CDT [facility] Blood 01/07/2017 2:23 AM CDT 01/07/2017 5:01 AM CDT Izabela Diamond MD CHEMISTRY ORDERABLES Final Res ult Performing Organization Address City/[facility]/ZIP Co de Phone Number [facility] CLIA# [id number] [address] [place] [phone] * (ABNORMAL) C-REACTIVE PROTEIN (01/07/2017 2:23 AM CDT) CRP 16.6(H) 0.0 - 2.9 mg/L 01/07/2017 5:27 AM CDT [facility] Blood 01/07/2017 2:23 AM CDT 01/07/2017 5:01 AM CDT Izabela Diamond MD CHEMISTRY ORDERABLES Final Res ult Performing Organization Address [facility] Co de Phone Number [facility] CLIA# [id number] [address] [place] [phone] * (ABNORMAL) BASIC METABOLIC PANEL (01/07/2017 2:23 AM CDT) SODIUM 139 136 - 145 mmol/L 01/07/2017 5:27 AM CDT [facility] POTASSIUM 4.1 3.5 - 5.1 mmol/L 01/07/2017 5:27 AM CDT [facility] CHLORIDE 104 98 - 107 mmol/L 01/07/2017 5:27 AM CDT [facility] CO2 26 21 - 32 mmol/L 01/07/2017 5:27 AM CDT [facility] CALCIUM 9.1 8.4 - 10.1 mg/dL 01/07/2017 5:27 AM CDT [facility] BUN 14 7 - 17 mg/dL 01/07/2017 5:27 AM CDT [facility] CREATININE 0.82 0.55 - 1.02 mg/dL 01/07/2017 5:27 AM T [facility] GLUCOSE 274(H) 74 - 106 mg/dL 01/07/2017 5:27 AM T [facility] GFR >60 >=60 mL/min/1.7 3 sq meter 01/07/2017 5:27 AM T [facility] Comment: eGFR has not been validated for [...] 3 sq meter 01/07/2017 5:27 AM T [facility] ANION GAP 9 4 - 30 mmol/L 01/07/2017 5:27 AM [facility] Blood 01/07/2017 2:23 AM CDT 01/07/2017 5:01 AM CDT us Izabela Diamond MD CHEMISTRY ORDERABLES Final Res ult [facility] CLIA# [id number] [address] [place] [phone] * (ABNORMAL) CBC WITH DIFFERENTIAL (01/07/2017 2:23 AM CDT) WBC 9.3 4.5 - 11.0 K/uL 01/07/2017 5:27 AM CDT [facility] RBC 4.19(L) 4.20 - 5.40 M/uL 01/07/2017 5:27 AM CDT [facility] HEMOGLOBIN 10.3(L) 12.0 - 16.0 g/dL 01/07/2017 5:27 AM [facility] HEMATOCRIT 33.2(L) 36.0 - 46.0 % 01/07/2017 5:27 AM [facility] MCV 79.2(L) 84.0 - 103.0 fL 01/07/2017 5:27 AM [facility] MCH 24.6(L) 27.0 - 34.0 pg 01/07/2017 5:27 AM [facility] MCHC 31.0 30.0 - 35.0 g/dL 01/07/2017 5:27 AM [facility] RDW 17.2(H) 11.0 - 14.5 % 01/07/2017 5:27 AM [facility] RDW-STDEV 49.4 37.0 - 54.0 fL 01/07/2017 5:27 AM [facility] PLATELETS 545(H) 140 - 440 K/uL 01/07/2017 5:27 AM [facility] MPV 10.2 8.9 - 12.8 fL 01/07/2017 5:27 AM [facility] NEUTROPHILS 53 42 - 75 % 01/07/2017 5:27 AM [facility] LYMPHOCYTES 26 24 - 44 % 01/07/2017 5:27 AM [facility] MONOCYTES 9 2 - 10 % 01/07/2017 5:27 AM [facility] EOSINOPHILS 11(H) 0 - 7 % 01/07/2017 5:27 AM [facility] BASOPHILS 1 0 - 1 % 01/07/2017 5:27 AM [facility] IMMATURE GRANULOCYTES 0 0 - 2 % 01/07/2017 5:27 AM [facility] NEUTROPHIL ABSOLUTE 4.88 2.00 - 8.00 K/uL 01/07/2017 5:27 AM [facility] LYMPHOCYTE ABSOLUTE 2.45 1.20 - 4.00 K/uL 01/07/2017 5:27 AM [facility] MONOCYTE ABSOLUTE 0.79(H) 0.10 - 0.60 K/uL 01/07/2017 5:27 AM CDT [facility] EOSINOPHIL ABSOLUTE 1.01(H) 0.00 - 0.70 K/uL 01/07/2017 5:27 AM CDT [facility] BASOPHILS ABSOLUTE 0.11 0.00 - 0.20 K/uL 01/07/2017 5:27 AM CDT [facility] IMMATURE GRANULOCYTES ABSOLUTE 0.04 0.00 - 0.10 K/uL 01/07/2017 5:27 AM CDT [facility] Blood 01/07/2017 2:23 AM CDT 01/07/2017 5:01 AM CDT us Izabela Diamond MD HEMATOLOGY ORDERABLES Final Re sult [facility] CLIA# [id number] [address] [place] [phone] documented in this encounter Visit Diagnoses Not on filedocumented in this encounter Care Teams Quarry Plug And Feather Driller Relationship Specialty Start Date End Date Shravan Jones DO PCP - General Family Practice 12/04/16 documented as of this encounter
--- OUTSIDE RECORDS SUMMARY | 2025-06-06 20:19 | XMS_ITS | Encounter Summary ---
Author Organization [facility] Address [address] [place] [address] Care Team Providers Care Cylinder Die Machine Operator Name Role Phone Shravan Jones DO Primary Care Provider [phone] Encounter Details Date Type Department Care Team (Late st Contact Info) Description 01/02/2017 Lab Requisition [facility] [address] [place] [address] Izabela Diamond MD NO ADDRESS ON FILE Social History Tobacco Use Types Packs/Day Years Used Date Smoking Tobacco: Every Day Cigarettes Comments:pt lethargic Comments Unknown Sex and Gender Information Value Date Recorded Sex Assigned at Not on file 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 Gender Identity Not on file Sexual [...] 01/02/2017 6:07 AM CDT [facility] [employer] [facility] POTASSIUM 4.3 3.5 - 5.1 mmol/L 01/02/2017 6:07 AM CDT [facility] CHLORIDE 101 98 - 107 mmol/L 01/02/2017 6:07 AM T [facility] CO2 27 21 - 32 mmol/L 01/02/2017 6:07 AM T [facility] CALCIUM 9.7 8.4 - 10.1 mg/dL 01/02/2017 6:07 AM T [facility] BUN 16 7 - 17 mg/dL 01/02/2017 6:07 AM [facility] CREATININE 0.87 0.55 - 1.02 mg/dL 01/02/2017 6:07 AM T [facility] GLUCOSE 122(H) 74 - 106 mg/dL 01/02/2017 6:07 AM [facility] GFR >60 >=60 mL/min/1.7 3 sq meter 01/02/2017 6:07 AM T [facility] Comment: eGFR has not been [...] 3 sq meter 01/02/2017 6:07 AM CDT [facility] ANION GAP 10 4 - 30 mmol/L 01/02/2017 6:07 AM T [facility] Blood 01/02/2017 3:00 AM CDT 01/02/2017 5:35 AM CDT us Izabela Diamond MD CHEMISTRY ORDERABLES Final Res ult [facility] CLIA# [id number] [address] [place] [phone] * (ABNORMAL) CBC WITH DIFFERENTIAL (01/02/2017 3:00 AM CDT) [facility] WBC 10.4 4.5 - 11.0 K/uL 01/02/2017 5:44 AM [facility] RBC 4.30 4.20 - 5.40 M/uL 01/02/2017 5:44 AM [facility] HEMOGLOBIN 10.4(L) 12.0 - 16.0 g/dL 01/02/2017 5:44 AM [facility] HEMATOCRIT 34.5(L) 36.0 - 46.0 % 01/02/2017 5:44 AM [facility] MCV 80.2(L) 84.0 - 103.0 fL 01/02/2017 5:44 AM [facility] MCH 24.2(L) 27.0 - 34.0 pg 01/02/2017 5:44 AM [facility] MCHC 30.1 30.0 - 35.0 g/dL 01/02/2017 5:44 AM [facility] RDW 17.4(H) 11.0 - 14.5 % 01/02/2017 5:44 AM [facility] RDW-STDEV 51.1 37.0 - 54.0 fL 01/02/2017 5:44 AM [facility] PLATELETS 764(H) 140 - 440 K/uL 01/02/2017 5:44 AM [facility] MPV 9.2 8.9 - 12.8 fL 01/02/2017 5:44 AM [facility] NEUTROPHILS 56 42 - 75 % 01/02/2017 5:44 AM [facility] LYMPHOCYTES 27 24 - 44 % 01/02/2017 5:44 AM [facility] MONOCYTES 8 2 - 10 % 01/02/2017 5:44 AM [facility] EOSINOPHILS 7 0 - 7 % 01/02/2017 5:44 AM [facility] BASOPHILS 1 0 - 1 % 01/02/2017 5:44 AM [facility] IMMATURE GRANULOCYTES 1 0 - 2 % 01/02/2017 5:44 AM CDT [facility] NEUTROPHIL ABSOLUTE 5.79 2.00 - 8.00 K/uL 01/02/2017 5:44 AM CDT [facility] LYMPHOCYTE ABSOLUTE 2.78 1.20 - 4.00 K/uL 01/02/2017 5:44 AM CDT [facility] MONOCYTE ABSOLUTE 0.85(H) 0.10 - 0.60 K/uL 01/02/2017 5:44 AM CDT [facility] EOSINOPHIL ABSOLUTE 0.76(H) 0.00 - 0.70 K/uL 01/02/2017 5:44 AM CDT [facility] BASOPHILS ABSOLUTE 0.10 0.00 - 0.20 K/uL 01/02/2017 5:44 AM CDT [facility] IMMATURE GRANULOCYTES ABSOLUTE 0.09 0.00 - 0.10 K/uL 01/02/2017 5:44 AM CDT [facility] Blood 01/02/2017 3:00 AM CDT 01/02/2017 5:35 AM CDT us Izabela Diamond MD HEMATOLOGY ORDERABLES Final Re sult [facility] CLIA# [id number] [address] [place] [phone] documented in this encounter Visit Diagnoses Not on filedocumented in this encounter Care Teams Cylinder Die Machine Operator Relationship Specialty Start Date End Date Shravan Jones DO PCP - General Family Practice 12/04/16 documented as of this encounter
--- OUTSIDE RECORDS SUMMARY | 2025-06-06 20:20 | XMS_ITS | Continuity of Care Document ---
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 [facility], LJacoboL.CJacobo 12/27/2024 14:13:55 11/11/19 25 plain X-ray of cervical spine completed [facility], LJacoboL.CJacobo 11/11/2024 12:44:02 10/01/19 25 angiography completed [facility], L.L.CJacobo 10/01/2024 18:38:18 09/27/19 25 plain X-ray of chest completed [facility], LJacoboL.C. 09/27/2024 18:18:09 09/27/19 25 echocardiography completed [facility] 10/01/2024 18:33:00 09/22/19 25 ultrasonography of right breast completed [facility] L.L.CJacobo 09/21/2024 13:39:24 09/22/19 25 mammography completed [facility] L.L.CJacobo 09/21/2024 13:40:36 09/11/[address] of abdomen completed [facility], LJacoboL.CJacobo 09/13/2024 14:56:32 09/10/19 25 angiography of coronary artery completed [facility], LJacoboL.C. 09/13/2024 14:50:21 09/09/19 25 echocardiography completed [facility] L.L.CJacobo 09/13/2024 14:54:55 09/08/19 25 plain X-ray of chest completed [facility], LJacoboLJacoboCJacobo 09/13/2024 14:57:51 08/24/[address] of chest completed [facility], DonetLJacoboCJacobo 08/24/2024 12:28:02 04/28/20 24 plain X-ray of chest completed [facility], LJacoboLJacoboCJacobo 04/30/2024 11:08:42 03/31/20 24 plain X-ray of chest completed [facility], LJacoboLJacoboCJacobo 04/01/2024 14:05:05 03/27/20 24 imaging guided percutaneous transluminal angioplasty of coronary artery with contrast completed [facility], LJacoboLJacoboCJacobo 10/05/2024 10:23:19 02/28/20 24 radiographic procedure on chest and/or abdomen completed [facility], LJacoboLJacoboCJacobo 03/04/2024 15:02:31 02/28/[address] of abdomen completed [facility], LJacoboL.CJacobo 03/04/2024 15:03:26 01/19/20 24 diagnostic radiography of abdomen completed [facility], LJacoboLJacoboCJacobo 01/21/2024 17:26:25 01/06/20 24 plain X-ray of chest completed [facility], LJacoboLJacoboCJacobo 01/07/2024 15:42:42 12/27/19 24 plain X-ray of chest completed [facility], LJacoboL.CJacobo 12/29/2023 23:23:06 12/27/19 24 [address] of chest, abdomen and pelvis completed [facility], LJacoboLJacbooCJacobo 12/29/2023 23:32:58 12/24/19 24 plain X-ray of chest completed [facility], Billie 12/29/2023 23:56:29 12/20/[address] of chest completed [facility], Billie 12/21/2023 12:33:52 12/20/19 24 plain X-ray of chest completed [facility], Billie 12/21/2023 12:34:44 12/09/19 24 plain X-ray of chest completed [facility], Billie 12/12/2023 10:16:37 12/05/19 24 plain X-ray of chest completed [facility], Billie 12/06/2023 13:24:46 11/28/19 24 cardiac catheterization completed [facility], Billie 12/06/2023 13:11:07 11/28/19 24 imaging guided percutaneous transluminal angioplasty of coronary artery with contrast completed [facility], DonteLJacoboCJacobo 10/05/2024 10:22:55 11/27/19 24 plain X-ray of chest completed [facility], KaelynCJacobo 11/28/2023 10:19:35 10/24/19 24 imaging guided percutaneous transluminal angioplasty of coronary artery with contrast completed [facility], L.LJacoboCJacobo 10/05/2024 10:22:32 10/16/19 24 imaging guided percutaneous transluminal angioplasty of coronary artery with contrast completed [facility], LJacoboLJacoboCJacobo 10/05/2024 10:22:12 10/07/19 24 plain X-ray of chest completed [facility], Billie 10/08/2023 17:52:40 09/20/19 24 [facility] 09/26/2023 12:48:56 lobectomy of lung completed XIMENA RISHABH [facility], [place] 10/10/2023 12:32:47 amputation completed XIMENA RISHABH [facility], [place] 08/24/2024 12:24:04 cholecystectomy completed XIMENA RISHABH [facility], [place] 09/13/2024 14:49:22 Imaging Results None recorded. Procedure Notes None recorded. Medical Equipment None Reported. Allergies Allergen ID Allergen Name Allergen Category Reaction Reaction Severity Criticality Documentation Date Start Date Code Code System Note Provider Name and Address Organization Details Recorded Time 38290 acetamino phen medicatio n abdominal pain moderate low 01/19/20232021 161 RxNorm GI upset /into leran ce Anh coles [facility], Billie 4 07:57:42 94551 acetamino phen medicatio n Not available Not available Not available 02/21/20242023 161 RxNorm ELIZABETH HOUSER, [address], [address], [facility], Billie 5 16:14:16 97503 ranolazin e medicatio n Not available Not available Not available 04/14/2025 68477 RxNorm Hallu cinat ions XIMENA RISHABH coles [facility], DonteLJacoboCJacobo 5 11:33:58 Medications Name Sig [...] wanted her to decrease to 100mg TID [facility] [place], 02/27 and 02/28 Not Available Not Available [...] times per day 10/09 completed VO CH/jl; 55163; Recorded 05/14/20 10:02AM by Leydi Jessica RN [...] Last Updated DateTime 152.4 cm 27.7 kg/m2 94049.1 2 g 98 % 78 /min 18 /min 158/82 mm[Hg] XIMENA KEATING [facility]obo 11:21:53 Social History Question Answer Notes LastModified by Wir3s Details LastModified Time Tobacco Smoking Status Former Smoker Quit 07/[address] [facility] 12/24/2023 12:30:16 What Type Of Diet Are You Following? REGULAR [email or web address] Information not available 12/24/2023 Which Illicit Or Recreational Drugs Have You Used? Smokes Meth [email or web address] Information not available 10/10/2023 When Did You Quit Smoking? 1-5yearssin celastcigar ette Information not available 12/24/2023 What Was The Date Of Your Most Recent Tobacco Screening? 12/24/2023 Information not available 12/24/2023 What Is Your Current Pack Years? 20-29packye ars Information not available 12/24/2023 What Is Your Relationship Status? Single [email or web address] Information not available 12/24/2023 At What Age [...] or recreational drugs? Yes Quit Meth 07/2023 [email or web address] Information not available 12/24/2023 Do you or have you ever used any other forms of tobacco or nicotine? No Information not available 12/24/2023 What is your level of alcohol consumption? None [email or web address] Information not available 10/10/2023 Are you currently employed? No disabled [email or web address] Information not available 10/10/2023 Are you able to walk independently without assistance or assistive devices? YESASSIST Information not available 10/10/2023 Are you able to care for yourself independently? No Mother is her caregiver. [email or web address] Information not available 10/10/2023 Do you or have you ever used any nicotine-free cigarettes, vape, or chewing tobacco? No Information not available 12/24/2023 Mental Status None recorded. Family History Relationship Description Onset Age of this Age Resolved Age Notes LastModified by Organization Details LastModified Time Mother Myocardial infarction In her 50's Not available 12/29/2023 23:44:26 Mother Rheumatoid arthritis [email or web address] Not available 12/28 23:44:44 Brother Acute lymphoid leukemia [email or web address] Not available 10/18 18:24:23 Medical History Condition [...] pneumococcal polysaccharide PPV23 8 completed SUZANNE HEATON [address] [place] [address], [address], [facility], LJolene 12/24/2023 12:51:09 Past Encounters Encounter ID Performer Location Encounter Start Date Encounter Closed Date Diagnosis/Indication Diagnosis SNOMED-CT Code Diagnosis ICD10 Code Diagnosis IMO Codes Diagnosis Note [id number] SUZANNE HEATON [facility] ([facility]) [address] [place] [address] 03/03/2025 12:06:42 03/03/2025 14:00:46 Neuropathy due to diabetes mellitus 726082175 E11.40 Decrease gabapentin to 100mg three times daily. Chronic renal failure 90 724064 N18.5 87806878 Dialysis. Hyperkalemia 50890968 E8 7.5 9805 Labs checked yesterday at Dialysis. Atypical chest pain 1025 69165 R07.89 355659 Recurrent. Following with cardiology . Recently started Isosorbide . History of abnormal cervical Papanicolaou smear 899066495 Z87.42 [id number] SUZANNE HEATON [facility] ([facility]) [address] [place] [address] 03/31/2025 10:56:17 03/31/2025 12:04:26 Chronic chest pain 1945571881 01710 R07.9 G89.29 457790 Spasm 08696312 M62.838 Pain in bi lateral legs 6235950728 5274127 M79.604 M79.605 Site-speci fic infective disorders of skin 300449221 L08.9 27708 right index finger Chronic pain syndrome 37 3617625 G89.4 58914 Gabapentin . Health Concerns Section Related Observation LastModified by Organization Detai ls LastModified Time None Recorded Concern Status LastModified by Organization Details LastModified Time None Recorded Payers Encounter Date Sequence Insurance Name Policy Number Policy Varela Covered Member ID Varela Member ID Guarantor Name 03/31/2025 1 [place] Donita Aguilar [id number] Donita Aguilar 03/31/2025 2 [place] Donita Aguilar [id number] Donita Aguilar Notes Date Note Type Note Provider Name and Address Organization Details Recorded Time 5 text/html Angina/Chest PainReported by PatientHPIFor quality, patient reportsheaviness. For context, patient reportsat rest. For severity, patient reportsmoderate. For onset/timing, patient reportshas noted for yearsandintermittent. For alleviating factors, patient reportsnitroglycerinandre st. SUZANNE HEATON [address] [place], [address], [facility], Billie 03/31/2025 17:08:26 OBGyn Episode No OBEpisode recorded.
--- NOTE | 2025-06-06 20:25 | ED_ITS ---
HPI - Chest Pain 2 General: Chief Complaint: Chest Pain Stated Complaint: Chest Pain Time Seen by Provider: 06/06/25 20:22 Source: patient Mode of arrival: ambulatory Limitations: no limitations History of Present Illness: Patient is a 39 year old female with an extensive past medical history consisting of type 1 diabetes, end-stage renal disease on hemodialysis Saturday//Saturday (did complete yesterday), CAD with multiple cardiac stents, HTN, among several others here for chest pain. Patient is well known to ED. This is her 8th visit in just the last two months. 26th visit for 2024. Patient underwent cardiac cath back in March with results as follows: Conclusions 1. Indication: Non-ST elevation NM, chest painLeft Main: No significant stenosis LAD has proximal and mid stent which is patent mild in-stent stenosis noted Left circumflex has ostial 50% in-stent restenosis patent proximal stent RCA is moderate-sized in caliber, patent proximal to mid stent with mild in-stent restenosis, distal stent has 2 layers of stent with 60% eccentric stenosis, may consider drug-coated balloon at this segmentLeft ventricular ejection fraction is normal no significant wall motion abnormality. Estimate ejection fraction is 60%. Recommendations * 1-Return to inpatient for close monitoring and routine cath care 2-Risk factor modification for secondary prevention 3-Statin and aspirin 81 mg life-long, if tolerated 4-Consider drug-coated balloon to 2 layers of stents in the future if needed for in-stent restenosis in the RCA distal segment 5-Continue optimal medical management 6- Follow up with Dr. Gallegos in four weeks and your primary care in 10 days. Patient states her pain began about 6 hours ago while at rest. She feels like it moves around her chest and radiates into her back. Denies SOB/difficulty breathing. Denies abdominal pain. MD complaint: chest pain Pertinent past history: coronary artery disease Onset (ago): hour(s) Timing of current episode: constant Prior episodes: Yes Onset: during rest Pain location: substernal, left chest and right chest Pain radiation: back Severity: severe Relieving factors: nothing Exacerbating factors: nothing Associated symptoms: Reports no associated symptoms Treatment prior to arrival: none Risk Factors: Coronary artery disease risk factors: diabetes and hypertension Thoracic aortic dissection risk factors: none Related Data Home Medications ?Medication ?Instructions ?Recorded ?Confirmed gabapentin 100 mg capsule 100 mg PO TID 12/27/2305/10 clopidogrel 75 mg tablet 75 mg PO DAILY 04/28/2404/24 escitalopram oxalate 20 mg tablet 20 mg PO DAILY anxie ty 02/14/25 05/10/25 folic acid 1 mg tablet 1 mg PO DAILY 02/14/2505/10 hydralazine 25 mg tablet 12.5 mg PO BID 02/14/2504/24 nitroglycerin 0.4 mg sublingual See Rx Instructions .R oute .COMPLEX 02/22/25 05/10/25 tablet cyclobenzaprine 10 mg tablet 10 mg PO TID PRN MUSCLE S PASM 04/22/25 05/10/25 tramadol 50 mg tablet 50 mg PO DAILY 04/22/2504/24 Previous Rx's ?Medication ?Instructions ?Recorded blood-glucose sensor (Dexcom G6 #3 ea 06/12/22 Sensor device) blood-glucose transmitter (Dexcom #1 ea 06/12/22 G6 Transmitter device) blood-glucose,asbestos worker helper,cont #1 ea 06/12/22 (Dexcom G6 Clinical Instructor) sevelamer carbonate 800 mg tablet 800 mg PO TID #90 ta bs 09/16/23 aspirin 81 mg tablet,delayed 81 mg PO QAM 30 days #30 tabs 03/28/24 release atorvastatin 40 mg tablet 40 mg PO BEDTIME 30 days #30 tabs 03/28/24 AFO brace #1 ea 04/20/24 diabetic shoes with 3 inserts #1 ea 04/20/24 amlodipine 5 mg tablet 5 mg PO DAILY #30 tabs 09/30 colchicine 0.6 mg tablet 0.6 mg PO DAILY #30 tabs isosorbide mononitrate 60 mg 60 mg PO DAILY #30 tabs 1 tablet,extended release 24 hr metoclopramide HCl 5 mg tablet 5 mg PO Q8H PRN nausea and 05/23/25 (Reglan) vomiting #20 tabs sodium polystyrene sulfonate 15 15 g PO DAILY #150 gra ms 05/23/25 gram oral powder insulin aspart U-100 100 unit/mL See Rx Instructions . Route 06/03/25 subcutaneous solution (Novolog .COMPLEX #10 mL U-100 Insulin aspart) Allergies Allergy/AdvReac Type Severity Reaction Status Date / Time acetaminophen AdvReac Mild ADR-Gastrointestinal Verified 05/30/25 22:14 Upset [facility] ED 2 [facility]: Medical History (Updated 06/06/25 @ 22:45 by LORE Corona) Insulin dependent diabetes mellitus with complications Chest pain Diabetes mellitus Primary hypertension HTN (hypertension), benign Hyperkalemia Headache Accelerated hypertension Uncontrolled type 1 diabetes mellitus ESRD (end stage renal disease) Dialysis complication Hypoglycemia Hemodialysis catheter dysfunction Colitis End stage renal disease on dialysis COPD (chronic obstructive pulmonary disease) Transaminitis Intractable nausea and vomiting Hyperlipidemia CHF (congestive heart failure), NYHA class III Pulmonary hypertension Coronary artery disease involving [place] heart with angina pectoris, unspecified vessel or lesion type Neurogenic bladder COVID-19 Tobacco dependence Drug abuse Anemia Community acquired pneumonia Esophagitis Long-term insulin use History of pancreatitis Celiac disease Recurrent UTI Non-alcoholic fatty liver disease Arnold-Chiari malformation Diabetic gastroparesis -continue Reglan Diabetic neuropathy associated with type 1 diabetes mellitus Headache, common migraine, intractable, with status migrainosus Pleural effusion 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 History of lung surgery -s/p LLL lobectomy secondary to cavitary pneumonia (2017) History of endoscopy History of cholecystectomy Family History Grandfather Diabetes Mother CAD (coronary artery disease) Diabetes Heart disease Hypertension Brother Acute lymphoblastic leukemia (ALL) in child Grandmother Thyroid disease Denies family history of Colon cancer Ovarian cancer Prostate cancer Hyperlipidemia Breast cancer Uterine cancer Stroke Social History Smoking and tobacco/nicotine status: former use of tobacco/nicotine Quit status (tobacco/nicotine): has quit using Former quit date comment: She previously smoked <1/2 PPD, quit July 2023. 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 She does have a cardiac history. Baseline troponin of 188 which is far off from her baseline. Negative delta. Baseline and repeat EKGs are non- ischemic. CXR normal. Remainder of labs look as expected given her history/ESRD. These were discussed with Dr. Larose. Patient will be allowed discharge. Recommend she reach out to her regional business development manager this week for ER follow up. Return precautions discussed. Medical Records I reviewed the patient's medical records. Lab Data I reviewed the patient's lab results. 06/06/25 20:44 06/06/25 20:44 Radiology Impressions Chest X-Ray 06/06/25 20:25 IMPRESSION: 1. No acute cardiopulmonary abnormality. 2. Greater than expected bony demineralization for age. Consider DEXA for quantification. Laboratory Results WBC 5.83 10^3/uL (3.29-11.43) 06/06/25 20:44 RBC 3.75 10^6/uL (3.85-5.65) L 06/06/25 20:44 Hgb 11.20 g/dL (11.27-16.99) L 06/06/25 20:44 Hct 35.5 % (36-47) L 06/06/25 20:44 MCV 94.7 fl (85-98) 06/06/25 20:44 MCH 29.9 pg (27-33) 06/06/25 20:44 MCHC 31.5 g/dL (30-55) 06/06/25 20:44 RDW 14.2 % (12.1-15.1) 06/06/25 20:44 Plt Count 128 10^3/cmm (157-399) L 06/06/25 20:44 MPV 9.7 fL (7.4-10.4) 06/06/25 20:44 Neut % (Auto) 64.5 % 06/06/25 20:44 Lymph % (Auto) 20.4 % 06/06/25 20:44 [place] % (Auto) 8.2 % 06/06/25 20:44 Eos % (Auto) 5.7 % 06/06/25 20:44 Baso % (Auto) 1.0 % 06/06/25 20:44 Neut # (Auto) 3.76 10^3/uL (1.8-7.7) 06/06/25 20:44 Lymph # (Auto) 1.2 10^3/uL (0.8-4.8) 06/06/25 20:44 [place] # (Auto) 0.5 10^3/uL (0.2-0.9) 06/06/25 20:44 Eos # (Auto) 0.3 10^3/uL (0.0-0.8) 06/06/25 20:44 Baso # (Auto) 0.1 10^3/uL (0.0-0.1) 06/06/25 20:44 Nucleated RBC % (auto) 0 % 06/06/25 20:44 Nucleated RBCs # 0.0 /100WBC 06/06/25 20:44 Sodium 138 mmol/L (136-145) 06/06/25 20:44 Potassium 5.4 mmol/L (3.5-5.1) H 06/06/25 20:44 Chloride 100 mmol/L (98-107) 06/06/25 20:44 Carbon Dioxide 25 mmol/L (22-29) 06/06/25 20:44 Anion Gap 18.4 (5-19) 06/06/25 20:44 BUN 33 mg/dL (6-20) H 06/06/25 20:44 Creatinine 6.0 mg/dL (0.5-0.9) H* 06/06/25 20:44 GFR Calculation 7.8 mL/min (90-130) L 06/06/25 20:44 Glucose 276 mg/dL (65-115) H 06/06/25 20:44 Calculated Osmolality 303 mOsm/kg (285-295) H 06/06/25 20:44 Calcium 8.9 mg/dL (8.5-10.5) 06/06/25 20:44 Total Bilirubin 0.3 mg/dL (0.15-1.2) 06/06/25 20:44 AST 17 U/L (0-32) 06/06/25 20:44 ALT 18 U/L (0-33) 06/06/25 20:44 Alkaline Phosphatase 180 U/L (35-105) H 06/06/25 20:44 Troponin T Baseline 188 ng/L (0-10) H* 06/06/25 20:44 Troponin T 60 Minute 183.9 ng/L (0-10) H 06/06/25 21:49 Delta Troponin T -4.1 ABS# (0-10) L 06/06/25 21:49 Total Protein 7.4 g/dL (6.6-8.7) 06/06/25 20:44 Albumin 4.0 g/dL (3.5-5.2) 06/06/25 20:44 Globulin 3.4 g/dL (1.3-4.6) 06/06/25 20:44 All radiology interpretation(s) finalized by discharge Discharge Plan Discharge Patient Disposition: Home Clinical Impression: ESRD (end stage renal disease) Chest pain Qualifiers: Chest pain type: unspecified Qualified Code(s): R07.9 - Chest pain, unspecified Condition: Stable Prescriptions: No Action (DME) AFO brace See Rx Instructions .Route .MEDSUPPLY Qty: 1 0RF Rx Instructions: As directed to the shoe guys (DME) diabetic shoes with 3 inserts See Rx Instructions .Route .MEDSUPPLY Qty: 1 0RF Rx Instructions: As directed to the shoe guys (DME) Dexcom G6 Clinical Instructor Misc See Rx Instructions .Route Qty: 1 0RF Rx Instructions: As directed (DME) Dexcom G6 Sensor Device See Rx Instructions .Route Qty: 3 0RF Rx Instructions: As directed (DME) Dexcom G6 Transmitter Device See Rx Instructions .Route Qty: 1 0RF Rx Instructions: As directed insulin aspart U-100 [Novolog U-100 Insulin aspart] 100 unit/mL solution See Rx Instructions .ROUTE .COMPLEX MDD 35 units Qty: 10 0RF Rx Instructions: 35 units daily via insulin pump; atorvastatin 40 mg tablet 40 mg PO BEDTIME 30 Days Qty: 30 0RF aspirin 81 mg tablet,delayed release (DR/EC) 81 mg PO QAM 30 Days Qty: 30 0RF amlodipine 5 mg Tablet 5 mg PO DAILY Qty: 30 0RF sodium polystyrene sulfonate 15 gram powder 15 g PO DAILY Qty: 150 0RF metoclopramide HCl [Reglan] 5 mg tablet 5 mg PO Q8H PRN (Reason: nausea and vomiting) Qty: 20 0RF sevelamer carbonate 800 mg Tablet 800 mg PO TID Qty: 90 0RF gabapentin 100 mg Capsule 100 mg PO TID clopidogrel 75 mg tablet 75 mg PO DAILY hydralazine 25 mg tablet 12.5 mg PO BID folic acid 1 mg tablet 1 mg PO DAILY escitalopram oxalate 20 mg tablet 20 mg PO DAILY nitroglycerin 0.4 mg tablet, sublingual See Rx Instructions .ROUTE .COMPLEX Rx Instructions: DISSOLVE ONE TABLET UNDER THE TONGUE EVERY 5 MINUTES NEEDED FOR CHEST PAIN. DO NOT EXCEED A TOTAL OF 3 DOSES IN 15 MINUTES. tramadol 50 mg tablet 50 mg PO DAILY cyclobenzaprine 10 mg tablet 10 mg PO TID PRN (Reason: MUSCLE SPASM ) colchicine 0.6 mg tablet 0.6 mg PO DAILY Qty: 30 0RF isosorbide mononitrate 60 mg tablet extended release 24 hr 60 mg PO DAILY Qty: 30 0RF Discharge Orders: Discharge ED (Routine); Ordered 06/06/25 Ordered By: Fany Machado Referrals: Elizabeth Dougherty FNP [Primary Care Provider, Unknown] Patient Instructions: Opioid Safety, Pain Management, Patient Portal & Flaca Instructions Print Language: [place] Coding Level of Care Code ED Coal Handling Supervisor for Chg Fwd Heart Score HEART Score Components History: Slightly Suspicous EKG: Non-specific Changes Age: Less than 45 yrs Risk Factors: >/=3 Risk Factors Troponin: Baseline Trop >45 ng/L (her baseline trop is always significantly elevated due to her ESRD) HEART Score RESULT HEART Score: 5
--- NOTE | 2025-06-06 20:25 | XRR_ITS ---
PROCEDURE INFORMATION: Exam: XR Chest Exam date and time: 06/06/2025 8:34 PM Age: 39 years old Clinical indication: Chest pressure; Prior surgery; Surgery date: 6+ months; Surgery type: Coronary stents. Lll lobectomy. Gb; C/O chest pain TECHNIQUE: Imaging protocol: Radiologic exam of the chest. Views: 1 view. COMPARISON: CR (CHEST, ) 05/15/2025 11:24 PM FINDINGS: Lungs: Stable volume loss in the left chest compatible with left lower lobectomy. Clear lung parenchyma. Pleural spaces: No pleural effusion. No pneumothorax. Heart/Mediastinum: Cardiac silhouette is normal in size for technique. Bones/joints: Subjective bony demineralization. XR/XR chest 1V portable [id number] IMPRESSION: 1. No acute cardiopulmonary abnormality. 2. Greater than expected bony demineralization for age. Consider DEXA for quantification.
[2025-06-06 20:55] LABS: Hematocrit 35.5 % (36-47); Hemoglobin 11.20 g/dL (11.27-16.99); Mean Corpuscular HGB Conc 31.5 g/dL (30-55); Mean Corpuscular Hemoglobin 29.9 pg (27-33); Mean Corpuscular Volume 94.7 fl (85-98); Nucleated Red Blood Cells % 0 %; Platelet Count 128 10^3/cmm (157-399); Red Blood Count 3.75 10^6/uL (3.85-5.65); White Blood Count 5.83 10^3/uL (3.29-11.43)
[2025-06-06] MEDS: ondansetron 2 mg/ML SDV 2 mL 4 MG IVP (21:03)
[2025-06-06] MEDS: morphine 4 mg/mL SDV 1 mL IVP ×2 (21:04→22:45)
[2025-06-06 21:10] LABS: Alanine Aminotransferase 18 U/L (0-33); Albumin Level 4.0 g/dL (3.5-5.2); Alkaline Phosphatase 180 U/L (35-105); Anion Gap 18.4 (5-19); Aspartate Amino Transferase 17 U/L (0-32); Blood Urea Nitrogen 33 mg/dL (6-20); Calcium 8.9 mg/dL (8.5-10.5); Carbon Dioxide 25 mmol/L (22-29); Chloride 100 mmol/L (98-107); Globulin 3.4 g/dL (1.3-4.6); Glucose 276 mg/dL (65-115); Osmolality Calculated 303 mOsm/kg (285-295); Potassium 5.4 mmol/L (3.5-5.1); Sodium 138 mmol/L (136-145); Total Protein 7.4 g/dL (6.6-8.7)
[2025-06-06 21:17] LABS: Troponin(5th) Baseline 188 ng/L (0-10)
--- NOTE | 2025-06-06 22:59 | ECG_ITS ---
[employer] [facility] Date: 2025-06-06 Pat Name: Donita Aguilar Department: Room: Gender: Female Sales Expert: : 1985 Requested By: Fany Machado Order Number: [id number] Faviola MD: Gilberto Eugene M.D. Measurements Intervals [place] Rate: 77 P: 61 WI: 202 QRS: -13 QRSD: 111 T: 18 QT: 420 QTc: 476 Interpretive Statements SINUS RHYTHM POSSIBLE LEFT ATRIAL ENLARGEMENT [-0.1mV P-WAVE IN V1/V2] INFERIOR MYOCARDIAL INFARCTION , PROBABLY OLD [40+ ms Q WAVE AND/OR ST/T ABNORMALITY IN II/aVF] Compared to ECG 05/24/2025 22:09:32 Myocardial infarct finding now present T-wave abnormality no longer present Electronically Signed On 06-08-2025 21:56:08 ERP IMPLEMENTATION CONSULTANT by Gilberto Eugene M.D. [email or web address]
[2025-06-06] MEDS: labetalol 5 mg/mL SDV 20mL 20 MG IVP (23:24)
[2025-06-07 00:06] VITALS: BP 137/67; PULSE 71; O2SAT 99
== END 2025-06-06 23:55 | disposition home or self-care (01) ==
PROVIDERS: Emergency Provider Physician Assistant; PCP Nurse Practitioner Family
DX: R07.9 Chest pain, unspecified (principal); E10.9 Type 1 diabetes mellitus without complications; I13.2 Hypertensive heart and chronic kidney disease with heart failure and with stage 5 chronic kidney disease, or end stage renal disease; I50.9 Heart failure, unspecified; E10.22 Type 1 diabetes mellitus with diabetic chronic kidney disease; N18.6 End stage renal disease; I25.119 Atherosclerotic heart disease of native coronary artery with unspecified angina pectoris; Z79.4 Long term (current) use of insulin; Z79.82 Long term (current) use of aspirin
CPT/HCPCS: 36415; 71045; 80053; 84484; 85025; 93005; 96374; 96375; 96376; 99285; J2270; J2405; J3490

== ENCOUNTER 2025-06-07 20:29 | Emergency (ER) | payer MEDICARE, MEDICAID, SELFPAY ==
[2025-06-07 20:35] VITALS: BP 152/84; PULSE 84; RESP 20; TEMP 36.8; O2SAT 96; BMI 26.4
--- OUTSIDE RECORDS SUMMARY | 2025-06-07 20:37 | XMS_ITS | Encounter Summary ---
Author Organization [facility] Address [address] [place] [address] Care Team Providers Care Senior Software Quality Analyst Name Role Phone Shravan Jones DO Primary Care Provider [phone] Encounter Details Date Type Department Care Team (Late st Contact Info) Description 01/07/2017 Lab Requisition [facility] [address] [place] [address] David Ortega MD [address] [place] [address] Social History Tobacco Use Types Packs/Day Years Used Date Smoking Tobacco: Every Day Cigarettes Comments:pt lethargic Comments Unknown Sex and Gender Information Value Date Recorded Sex Assigned at Not on file Legal Sex Female 4:38 AM HOT DIE PICKER Gender Identity Not on file Sexual [...] Detected Not Detected 01/07/2017 8:08 PM CDT [facility] Stool STOOL SPECIMEN / Unknown 01/07/2017 1:54 PM CDT 01/07/2017 6:53 PM CDT Narrative [facility] - 01/07/2017 8:08 PM [...] MICROBIOLOGY - GENERAL ORDERAB LES Final Result [facility] CLIA# [id number] [address] [place] [address] documented in this encounter Visit Diagnoses Not on filedocumented in this encounter Care Teams Senior Software Quality Analyst Relationship Specialty Start Date End Date Shravan Jones DO PCP - General Family Practice 12/04/16 documented as of this encounter
--- OUTSIDE RECORDS SUMMARY | 2025-06-07 20:37 | XMS_ITS | Encounter Summary ---
Author Organization [facility] Address [address] [place] [address] Care Team Providers Care Laborer Laboratory Name Role Phone Shravan Jones DO Primary Care Provider [phone] Encounter Details Date Type Department Care Team (Late st Contact Info) Description 12/31/2016 Lab Requisition [facility] [address] [place] [address] David Ortega MD [address] [place] [address] Social History Tobacco Use Types Packs/Day Years Used Date Smoking Tobacco: Every Day Cigarettes Comments:pt lethargic Comments Unknown Sex and Gender Information Value Date Recorded Sex Assigned at Not on file Legal Sex Female 4:38 AM DIRECT SUPPORT PROFESSIONAL Gender Identity Not on file Sexual Orientation [...] 2:26 AM CDT 12/31/2016 5:17 AM CDT [facility] - 12/31/2016 5:52 AM CDT Due to Nursery Supervisor update, MG+ reference range has changed from 1.8 - 2.4 mg/dL to the new reference range of 1.6 - 2.6 mg/dL. This will have limited patient impact. us David Ortega MD CHEMISTRY ORDERABLES Final Res ult [facility] CLIA# [id number] [address] [place] [id number] * (ABNORMAL) COMPREHENSIVE METABOLIC PANEL (12/31/2016 2:26 AM CDT) SODIUM 138 136 - 145 mmol/L 12/31/2016 5:52 AM CDT [facility] POTASSIUM 4.7 3.5 - 5.1 mmol/L 12/31/2016 5:52 AM [facility] CHLORIDE 102 98 - 107 mmol/L 12/31/2016 [...] Final Res ult [facility] CLIA# [id number] [address] [place] [address] * (ABNORMAL) CBC WITH DIFFERENTIAL (12/31/2016 2:26 AM CDT) WBC 13.7(H) 4.5 - 11.0 K/uL 12/31/2016 6:32 AM [facility] RBC 3.66(L) 4.20 - 5.40 M/uL 12/31/2016 6:32 AM [facility] HEMOGLOBIN 9.3(L) 12.0 - 16.0 g/dL 12/31/2016 6:32 AM [facility] HEMATOCRIT 29.6(L) 36.0 - 46.0 % 12/31/2016 6:32 AM [facility] MCV 80.9(L) 84.0 - 103.0 fL 12/31/2016 6:32 AM [facility] MCH 25.4(L) 27.0 - 34.0 pg 12/31/2016 6:32 AM [facility] MCHC 31.4 30.0 - 35.0 g/dL 12/31/2016 6:32 AM [facility] RDW 17.4(H) 11.0 - 14.5 % 12/31/2016 6:32 AM [facility] RDW-STDEV 52.1 37.0 - 54.0 fL 12/31/2016 6:32 AM [facility] PLATELETS 767(H) 140 - 440 K/uL 12/31/2016 6:32 AM [facility] MPV 9.0 8.9 - 12.8 fL 12/31/2016 6:32 AM [facility] NEUTROPHILS 68 42 - 75 % 12/31/2016 6:32 AM [facility] LYMPHOCYTES 17(L) 24 - 44 % 12/31/2016 6:32 AM [facility] MONOCYTES 8 2 - 10 % 12/31/2016 6:32 AM [facility] EOSINOPHILS 6 0 - 7 % 12/31/2016 6:32 AM [facility] BASOPHILS 0 0 - 1 % 12/31/2016 6:32 AM [facility] IMMATURE GRANULOCYTES 1 0 - [...] Final Re sult [facility] CLIA# [id number] [address] [place] [id number] documented in this encounter Visit Diagnoses Not on filedocumented in this encounter Care Teams Laborer Laboratory Relationship Specialty Start Date End Date Shravan Jones DO PCP - General Family Practice 12/04/16 documented as of this encounter
--- OUTSIDE RECORDS SUMMARY | 2025-06-07 20:37 | XMS_ITS | Clinical Summary ---
Author Organization [facility] Facility Address [address] [address] Care Team Providers Care Pharmaceutical Representative Name Role Phone Alexis Garcia MD Primary Care Provider [phone] Encounters Date Type Department Care Team Description 06/03/2025 Orders Only [facility], [facility] [address] [place] [address] Chey Navas MD 06/01/2025 Treatment [facility], [facility] [address] [place] [address] Karlene Cespedes NP End stage renal disease; Dependence on renal dialysis 05/27/2025 Orders Only [facility], [facility] [address] [place] [address] Chey Navas MD 05/25/2025 Treatment [facility], [facility] [address] [place] [address] Melissa Wiley NP Secondary hyperaldosteronism; Protein-calorie malnutrition; End stage renal disease; Dependence on renal dialysis 05/19/2025 Orders Only [facility], [facility] [address] [place] [address] Chey Navas MD 05/17/2025 Treatment [facility], [facility] [address] [place] [address] Melissa Wiley NP End stage renal disease; Dependence on renal dialysis 05/13/2025 Orders Only [facility], [facility] [address] [place] [address] Chey Navas MD 05/11/2025 [facility] [address] [place] [address] Chey Navas MD 05/11/2025 Treatment [facility], [facility] [address] [place] [address] Chey Navas MD End stage renal disease; Dependence on renal dialysis 05/06/2025 [facility] [address] [place] [address] Chey Navas MD 05/04/2025 [facility], [facility] [address] [place] [address] Chey Navas MD 05/04/2025 Treatment [facility], [facility] [address] [place] [address] Melissa Wiley NP End stage renal disease; Dependence on renal dialysis 04/29/2025 [facility] [address] [place] [address] Chey Navas MD 04/27/[address] [place] [address], [facility] [address] [place] [address] Melissa Wiley NP End stage renal disease; Dependence on renal dialysis 04/22/2025 [facility], [facility] [address] [place] [address] Chey Navas MD 04/20/[address] [place] [address] Nephrology [facility], [facility] [address] [place] [address] Chey Navas MD End stage renal disease; Dependence on renal dialysis 04/15/2025 [facility], [facility] [address] [place] [address] Chey Navas MD 04/13/2025 [facility], [facility] [address] [place] [address] Chey Navas MD 04/13/2025 Treatment [facility] [address] [place] [address] Melissa Wiley NP End stage renal disease; Dependence on renal dialysis 04/01/2025 [facility], [facility] [address] [place] [address] Cehy Navas MD 03/30/2025 Treatment [facility], [facility] [address] [place] [address] Karlene Cespedes NP End stage renal disease; Dependence on renal dialysis 03/25/[address] [place] [address], [facility] [address] [place] [address] Melissa Wiley NP End stage renal disease; Dependence on renal dialysis 03/25/2025 [facility], [facility] [address] [place] [address] Chey Navas MD 03/18/2025 Orders Only [facility], [facility] [address] [place] [address] Chey Navas MD 03/16/[address] [place], [place] [address]rology [facility], [facility] [address] [place] [address] Chey Navas MD End stage renal disease; Dependence on renal dialysis 03/11/2025 Orders Only [facility], [facility] [address] [place] [address] Chey Navas MD 03/09/[address] [place] [address] [facility] [address] [place] [address] Melissa Wiley NP End stage [...] [facility] 06/03/2025 06/02/2025 8:4 8 AM HEAD BANQUET WAITER/WAITRESS Narrative Resulting Agency Comment Performing Organization Information: Site ID: FRANCISCO JAVIER Name: [facility] Address: [address] [place] [phone] Director: Jennifer De Jesus MD Chey Navas MD LAB BLOOD ORDERABLES Final Re sult [facility] [address] [place] [address] * (ABNORMAL) Iron and TIBC (05/27/2025) Only the most recent of2 resultswithin the time period is included. Iron, Total 89 40 - 190 mcg/dL [facility] TIBC 201(L) 250 - 450 mcg/dL (calc) [facility] Iron Saturation (TSat) 44 16 - 45 % (calc) [facility] 05/27/2025 05/26/2025 1:1 3 PM HEAD BANQUET WAITER/WAITRESS Narrative Resulting Agency Comment Performing Organization Information: Site ID: [place] JAVIER Name: [facility] Address: [address] [place] [phone] Director: Jennifer De Jesus MD Chey Navas MD LAB BLOOD ORDERABLES Final Re sult Performing Organization Address [facility] de Phone Number [facility] [address] * SPECIMEN INTEGRITY COMPROMISED (05/27/2025) SPECIMEN INTEGRITY COMPROMISED [facility] Comment: Whole blood, unspun or partially spun gel barrier tube was received more than 6 hours since collection. A false elevation of K, Phos and LD as well as a false decrease in glucose may occur due to prolonged contact with red cells. 05/27/2025 05/26/2025 1:1 3 PM HEAD BANQUET WAITER/WAITRESS Narrative Resulting Agency Comment Performing Organization Information: Site ID: [place] Name: [facility] Address: [address] [place] [phone] Director: Jennifer De Jesus MD Chey Navas MD LAB BLOOD ORDERABLES Final Re sult Performing Organization Address [facility] de Phone Number [facility] [address] * [facility] Lab Results (05/27/2025) Only the most recent of4 resultswithin the time period is included. eKt/V (Tattersall) 1.42 [facility] eKdrt/V 1.41 [facility] WSTDKT/V 2.5 [facility] nPCR_HD 0.63 [facility] eKt/V Gotch [facility] PCR 36.52 [facility] spKt/V Gotch 1.67 [facility] spKt/V (Daugirdas II) 1.66 [facility] eNPCR 0.59 [facility] 05/27/2025 05/27/2025 us Michael Ordering Provider LAB BLOOD ORDERABLES Final Result MICHAEL [facility] Contact Performing lab Unknown, [place] * Post Dialysis BUN (05/27/2025) Only the most recent of4 resultswithin the time period is included. BUN Post Dialysis 7 7 - 25 mg/dL [facility] 05/27/2025 05/26/2025 1:1 3 PM HEAD BANQUET WAITER/WAITRESS Narrative Resulting Agency Comment Performing Organization Information: Site ID: [place] Name: [facility] Address: [address] [place] [phone] Director: Jennifer De Jesus MD us Chey Navas MD LAB BLOOD ORDERABLES Final Re sult [facility] [id number] [place] [phone] * Differential with WBC (05/27/2025) Only the [...] [facility] 05/27/2025 05/26/2025 1:1 3 PM HEAD BANQUET WAITER/WAITRESS Narrative Resulting Agency Comment Performing Organization Information: Site ID: [place] Name: [facility] Address: [address] [place] [phone] Director: Jennifer De Jesus MD Chey Navas MD LAB BLOOD ORDERABLES Final Re sult Performing Organization Address [facility] Co de Phone Number [facility] [address] [place] [phone] * Platelet count (05/27/2025) Only the most recent of2 resultswithin the time period is included. Pathologist [facility] Platelets 154 140 - 400 Thousand/uL [facility] 05/27/2025 05/26/2025 1:1 3 PM HEAD BANQUET WAITER/WAITRESS Narrative Resulting Agency Comment Performing Organization Information: Site ID: [place] Name: [facility] Address: [address] [place] [phone] Director: Jennifer De Jesus MD Chey Navas MD LAB BLOOD ORDERABLES Final Re sult Performing Organization Address [facility] de Phone Number [facility] [address] [place] [phone] * (ABNORMAL) CBC (05/27/2025) Only the most recent of2 resultswithin the time period is included. Pathologist [facility] WBC 6.4 3.8 - 10.8 Thousand/u L [...] [facility] 05/27/2025 05/26/2025 1:1 3 PM HEAD BANQUET WAITER/WAITRESS Narrative Resulting Agency Comment Performing Organization Information: Site ID: [place]AV[place] Name: [facility] Address: [facility] [place] [address] Director: Jennifer De Jesus MD Chey Navas MD LAB BLOOD ORDERABLES Final Re sult Performing Organization Address [facility] Co de Phone Number [facility] [address] [place] [phone] * (ABNORMAL) BUN (05/27/2025) Only the most recent of4 resultswithin the time period is included. BUN 31(H) 7 - 25 mg/dL [facility] 05/27/2025 05/26/2025 1:1 3 PM HEAD BANQUET WAITER/WAITRESS Narrative Resulting Agency Comment Performing Organization Information: Site ID: [place]AV[place] Name: [facility] Address: [facility] [place] [address] Director: Jennifer De Jesus MD Chey Navas MD LAB BLOOD ORDERABLES Final Re sult Performing Organization Address [facility] Co de Phone Number [facility] [address] [place] [phone] * Sodium (05/27/2025) Only the most recent of2 resultswithin the time period is included. Sodium 136 135 - 146 mmol/L [facility] 05/27/2025 05/26/2025 1:1 3 PM HEAD BANQUET WAITER/WAITRESS Narrative Resulting Agency Comment Performing Organization Information: Site ID: [place] JAVIER Name: [facility] Address: [facility] [place] [address] Director: Jennifer De Jesus MD us Chey Navsa MD LAB BLOOD ORDERABLES Final Re sult Performing Organization Address City/[facility] Co de Phone Number [facility] [id number] [place] [phone] * Protein, total (05/27/2025) Only the most recent of2 resultswithin the time period is included. Total Protein 6.6 6.1 - 8.1 g/dL [facility] 05/27/2025 05/26/2025 1:1 3 PM HEAD BANQUET WAITER/WAITRESS Narrative Resulting Agency Comment Performing Organization Information: Site ID: [place] Name: [facility] Address: [address] [place] [phone] Director: Jennifer De Jesus MD us Chey Navas MD LAB BLOOD ORDERABLES Final Re sult Performing Organization Address [facility] Co de Phone Number [facility] [id number] [place] [phone] * Potassium (05/27/2025) Only the most recent of3 resultswithin the time period is included. Pathologist [facility] Potassium 4.3 3.5 - 5.3 mmol/L [facility] 05/27/2025 05/26/2025 1:1 3 PM HEAD BANQUET WAITER/WAITRESS Narrative Resulting Agency Comment Performing Organization Information: Site ID: [place] Name: [facility] Address: [address] [place] [phone] Director: Jennifer De Jesus MD us Chey Navas MD LAB BLOOD ORDERABLES Final Re sult Performing Organization Address [facility] Co de Phone Number [facility] [address] [place] [address] * (ABNORMAL) Phosphorus (05/27/2025) Only the most recent of2 resultswithin the time period is included. Phosphorus 5.8(H) 3.0 - 4.5 mg/dL [facility] 05/27/2025 05/26/2025 1:1 3 PM HEAD BANQUET WAITER/WAITRESS Narrative Resulting Agency Comment Performing Organization Information: Site ID: [place] JAV[place] Name: [facility] Address: [address] [place] [phone] Director: Jennifer De Jesus MD Chey Navas MD LAB BLOOD ORDERABLES Final Re sult Performing Organization Address [facility] Co de Phone Number [facility] [address] * (ABNORMAL) Alkaline phosphatase (05/27/2025) Alkaline Phosphatase 155(H) 31 - 125 U/L [facility] 05/27/2025 05/26/2025 1:1 3 PM HEAD BANQUET WAITER/WAITRESS Narrative Resulting Agency Comment Performing Organization Information: Site ID: [place] Name: [facility] Address: [address] [place] [phone] Director: Jennifer De Jesus MD Chey Navas MD LAB BLOOD ORDERABLES Final Re sult Performing Organization Address [facility] Co de Phone Number [facility] [address] * (ABNORMAL) PTH, Intact (05/27/2025) Only the [...] Normal High 05/27/2025 05/26/2025 1:1 3 PM HEAD BANQUET WAITER/WAITRESS Narrative Resulting Agency Comment Performing Organization Information: Site ID: [place] JAV[place] Name: [facility] Address: [address] [place] [phone] Director: Jennifer De Jesus MD Chey Navas MD LAB BLOOD ORDERABLES Final Re sult Performing Organization Address [facility] Co de Phone Number [facility] [id number] [place] [phone] * Magnesium (05/27/2025) Pathologist [facility] Magnesium 2.0 1.6 - 2.5 mg/dL [facility] [employer] [facility] 05/27/2025 05/26/2025 1:1 3 PM HEAD BANQUET WAITER/WAITRESS Narrative Resulting Agency Comment Performing Organization Information: Site ID: [place] Name: [facility] Address: [address] [place] [phone] Director: Jennifer De Jesus MD Chey Navas MD LAB BLOOD ORDERABLES Final Re sult Performing Organization Address [facility] Co de Phone Number [facility] [address] [place] [phone] * (ABNORMAL) Hemoglobin A1c (05/27/2025) Hemoglobin A1C [...] for children. 05/27/2025 05/26/2025 1:1 3 PM HEAD BANQUET WAITER/WAITRESS Narrative Resulting Agency Comment Performing Organization Information: Site ID: [place] JAVIER Name: [facility] Address: [place] [address] Director: Jennifer De Jesus MD Chey Navas MD LAB BLOOD ORDERABLES Final Re sult Performing Organization Address [facility] de Phone Number [facility] [address] [facility] [place] [address] * (ABNORMAL) Glucose, random (05/27/2025) Only the most recent of2 resultswithin the time period is included. Glucose 115(H) 65 - 99 mg/dL [facility] Comment: For someone without known diabetes, a glucose value between 100 and 125 mg/dL is consistent with prediabetes and should be confirmed with a follow-up test. 05/27/2025 05/26/2025 1:1 3 PM HEAD BANQUET WAITER/WAITRESS Narrative Resulting Agency Comment Performing Organization Information: Site ID: [place] JAVIER Name: [facility] Address: [address] [place] [phone] Director: Jennifer De Jesus MD us Chey Navas MD LAB BLOOD ORDERABLES Final Re sult Performing Organization Address [facility] de Phone Number [facility] [id number] [place] [phone] * (ABNORMAL) Ferritin (05/27/2025) Ferritin 1,011(H) 16 - 154 ng/mL [facility] 05/27/2025 05/26/2025 1:1 3 PM HEAD BANQUET WAITER/WAITRESS Narrative Resulting Agency Comment Performing Organization Information: Site ID: [place] Name: [facility] [employer] [facility] Address: [address] [place], [place] [address]ner [facility] [place] [address] Director: Jennifer De Jesus MD us Chey Navas MD LAB BLOOD ORDERABLES Final Re sult Performing Organization Address City/[facility]/ZIP Co de Phone Number [facility] [address] [place] [phone] * (ABNORMAL) Creatinine, serum (05/27/2025) Only the most recent of2 resultswithin the time period is included. Creatinine 6.06(H) 0.50 - 0.97 mg/dL [facility] 05/27/2025 05/26/2025 1:1 3 PM HEAD BANQUET WAITER/WAITRESS Narrative Resulting Agency Comment Performing Organization Information: Site ID: [place] Name: [facility] Address: [address] [place] [phone] Director: Jennifer De Jesus MD us Chey Navas MD LAB BLOOD ORDERABLES Final Re sult Performing Organization Address [facility] Co de Phone Number [facility] [address] [place] [phone] * Chloride (05/27/2025) Only the most recent of2 resultswithin the time period is included. Pathologist [facility] Chloride 98 98 - 110 mmol/L [facility] 05/27/2025 05/26/2025 1:1 3 PM HEAD BANQUET WAITER/WAITRESS Narrative Resulting Agency Comment Performing Organization Information: Site ID: [place] Name: [facility] Address: [address] [place] [phone] Director: Jennifer De Jesus MD us Chey Navas MD LAB BLOOD ORDERABLES Final Re sult Performing Organization Address [facility] Co de Phone Number [facility] [address] * CO2 (05/27/2025) Only the most recent of2 resultswithin the time period is included. Bicarbonate (CO2) 27 20 - 29 mmol/L [facility] 05/27/2025 05/26/2025 1:1 3 PM HEAD BANQUET WAITER/WAITRESS Narrative Resulting Agency Comment Performing Organization Information: Site ID: [place] JAVIER Name: [facility] Major Address: [address] [place] [phone] Director: Jennifer De Jesus MD Chey Navas MD LAB BLOOD ORDERABLES Final Re sult Performing Organization Address City/[facility]/ZIP Co de Phone Number [facility] [address] [place] [phone] * (ABNORMAL) Calcium (05/27/2025) Only the most recent of2 resultswithin the time period is included. Calcium 8.2(L) 8.6 - 10.0 mg/dL [facility] 05/27/2025 05/26/2025 1:1 3 PM HEAD BANQUET WAITER/WAITRESS Narrative Resulting Agency Comment Performing Organization Information: Site ID: [place] Name: [facility] Address: [address] [place] [phone] Director: Jennifer De Jesus MD us Chey Navas MD LAB BLOOD ORDERABLES Final Re sult Performing Organization Address [facility] Co de Phone Number [facility] [address] [place] [phone] * (ABNORMAL) Albumin (05/27/2025) Only the most recent of2 resultswithin the time period is included. Albumin 3.4(L) 3.6 - 5.1 g/dL [facility] 05/27/2025 05/26/2025 1:1 3 PM HEAD BANQUET WAITER/WAITRESS Narrative Resulting Agency Comment Performing Organization Information: Site ID: [place] Name: [facility] Address: [address] [place] [phone] Director: Jennifer De Jesus MD us Chey Navas MD LAB BLOOD ORDERABLES Final Re sult Performing Organization Address City/[facility]/ZIP Co de Phone Number [facility] [address] [place] [address] * (ABNORMAL) HEMATOLOGY (04/22/2025) Only the most recent of6 resultswithin the time period is included. Pathologist [facility] Hemoglobin 9.6(L) 12.0 - 16.0 g/dL [facility] Hemoglobin x 3 28.8(L) 36.0 - 48.0 % [facility] 04/22/2025 04/23/2025 9:0 0 AM CDT Narrative [facility] - 04/23/2025 Unless otherwise specified, test(s) performed at: [facility], [address] [place] [address] CASH APPLICATIONS CLERK: Jose Luis France M.D. For any questions, please call customer service at FREQUENCY:OTHER Resulting Agency Comment Specimen source: Blood us Chey Navas MD LAB BLOOD ORDERABLES Final Re sult Performing Organization Address [facility] Co de Phone Number [facility] See order comments or contact performing lab Unknown, [place] * (ABNORMAL) [facility] Chemistry (04/13/2025) Only the most recent of2 resultswithin the time period is included. Pathologist [facility] PTH 561(H) 16 - 80 pg/mL [facility] 04/13/2025 04/14/2025 9:5 3 AM CDT Narrative [facility] - 04/14/2025 Unless otherwise specified, test(s) performed at: [facility], [address] [place] [id number] CASH APPLICATIONS CLERK: Jose Luis France M.D. For any questions, please call customer service at FREQUENCY:OTHER Resulting Agency Comment Specimen source: Plasma us Chey Navas MD LAB BLOOD ORDERABLES Final Re sult Performing Organization Address [facility] de Phone Number [facility] See order comments or contact performing lab Unknown, [place] * HD KINETICS (03/25/2025) % Urea Reduction 79 65 - 80 % [facility] 03/25/2025 03/26/2025 11: 23 AM CDT Narrative Resulting Agency Comment Specimen source: Plasma Chey Navas MD LAB BLOOD ORDERABLES Final Re sult Performing Organization Address [facility] Co de Phone Number [facility] See order comments or contact performing lab Unknown, [place] * (ABNORMAL) POST CHEMISTRY (03/25/2025) BUN Post Dialysis 5(L) 6 - 19 mg/dL [facility] 03/25/2025 03/26/2025 11: 23 AM CDT Narrative [facility] - 03/26/2025 Unless otherwise specified, test(s) performed at: [facility], [address] [place] [address] CASH APPLICATIONS CLERK: Jose Luis France M.D. For any questions, please call customer service at FREQUENCY:MONTHLY Resulting Agency Comment Specimen source: Plasma us Chey Navas MD LAB BLOOD ORDERABLES Final Re sult Performing Organization Address [facility] de Phone Number [facility] See order comments or contact performing lab Unknown, [place] from Last 3 Months Insurance Medicaid [place] ([id number]) Medicare Care Teams Pharmaceutical Representative Relationship Specialty Start Date End Date Alexis Garcia MD [address] [place] [address] PCP - General Family Medicine 04/16/22
--- OUTSIDE RECORDS SUMMARY | 2025-06-07 20:37 | XMS_ITS | Encounter Summary ---
Author Organization [facility] Address [address] [place] [address] Care Team Providers Care Tire Sorter Name Role Phone Shravan Jones DO Primary Care Provider +1- [phone] Encounter Details Date Type Department Care Team (Late st Contact Info) Description 01/07/2017 Lab Requisition [facility] Laboratory Services [address] [place] [address] [place] [address] David Ortega MD [address] [place] [address] Social History Tobacco Use Types Packs/Day Years Used Date Smoking Tobacco: Every Day Cigarettes Comments:pt lethargic Comments Unknown Sex and Gender Information Value Date Recorded Sex Assigned at Not on file Legal Sex Female 4:38 AM EDITOR AT LARGE Gender Identity Not on file Sexual Orientation Not on file documented as of this encounter Plan of Treatment Not on file documented as of this encounter Visit Diagnoses Not on filedocumented in this encounter Care Teams Tire Sorter Relationship Specialty Start Date End Date Shravan Jones DO PCP - General Family Practice 12/04/16 documented as of this encounter
--- OUTSIDE RECORDS SUMMARY | 2025-06-07 20:37 | XMS_ITS | Encounter Summary ---
Author Organization [facility] Address [address] [place] [address] Care Team Providers Care Clear Coat Sprayer Name Role Phone Shravan Jones DO Primary Care Provider [phone]- [phone] Encounter Details Date Type Department Care Team (Late st Contact Info) Description 12/12/2016 Nurse Only [facility] 4D Surgery Heart Lung [address] 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
--- OUTSIDE RECORDS SUMMARY | 2025-06-07 20:37 | XMS_ITS | Encounter Summary ---
Author Organization [facility] Address 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 [facility] [address] [place] [address] Kellee Garcia, COUNTRY PRINTER [address] [facility] [address] [place] [address] documented as of this encounter Visit Diagnoses Not on filedocumented in this encounter Care Teams Hospital Recruiter Relationship Specialty Start Date End Date Shravan Jones DO PCP - General Family Practice 12/04/16 documented as of this encounter
--- OUTSIDE RECORDS SUMMARY | 2025-06-07 20:37 | XMS_ITS | Encounter Summary ---
Author Organization [facility] Address [address] [place] [address] Care Team Providers Care Heel Sprayer Name Role Phone Shravan Jones DO Primary Care Provider +1- [phone] Encounter Details Date Type Department Care Team (Late st Contact Info) Description 01/02/2017 Lab Requisition [facility] Laboratory Services [address] [place] [address] [place] [address] Izabela Diamond MD NO ADDRESS ON FILE Social History Tobacco Use Types Packs/Day Years Used Date Smoking Tobacco: Every Day Cigarettes Comments:pt lethargic Comments Unknown Sex and Gender Information Value Date Recorded Sex Assigned at Not on file Legal Sex Female 4:38 AM RECEPTION CLERK Gender Identity Not on file Sexual [...] - 145 mmol/L 01/02/2017 6:07 AM CDT [facility] [employer] [facility] POTASSIUM 4.3 3.5 - 5.1 mmol/L 01/02/2017 6:07 AM CDT [facility] CHLORIDE 101 98 - 107 mmol/L 01/02/2017 6:07 AM T [facility] CO2 27 21 - 32 mmol/L 01/02/2017 6:07 AM T [facility] CALCIUM 9.7 8.4 - 10.1 mg/dL 01/02/2017 6:07 AM T [facility] BUN 16 7 - 17 mg/dL 01/02/2017 6:07 AM [facility] CREATININE 0.87 0.55 - 1.02 mg/dL 01/02/2017 6:07 AM T [facility] GLUCOSE 122(H) 74 - 106 mg/dL 01/02/2017 6:07 AM [facility] GFR >60 >=60 mL/min/1.7 3 sq meter 01/02/2017 6:07 AM T [facility] Comment: eGFR has not been [...] 3 sq meter 01/02/2017 6:07 AM CDT [facility] ANION GAP 10 4 - 30 mmol/L 01/02/2017 6:07 AM T [facility] Blood 01/02/2017 3:00 AM CDT 01/02/2017 5:35 AM CDT us Izabela Diamond MD CHEMISTRY ORDERABLES Final Res ult [facility] CLIA# [id number] [address] [place] [address] * (ABNORMAL) CBC WITH DIFFERENTIAL (01/02/2017 3:00 AM CDT) [facility] WBC 10.4 4.5 - 11.0 K/uL 01/02/2017 5:44 AM [facility] RBC 4.30 4.20 - 5.40 M/uL 01/02/2017 5:44 AM [facility] HEMOGLOBIN 10.4(L) 12.0 - 16.0 g/dL 01/02/2017 5:44 AM [facility] HEMATOCRIT 34.5(L) 36.0 - 46.0 % 01/02/2017 5:44 AM [facility] MCV 80.2(L) 84.0 - 103.0 fL 01/02/2017 5:44 AM [facility] MCH 24.2(L) 27.0 - 34.0 pg 01/02/2017 5:44 AM [facility] MCHC 30.1 30.0 - 35.0 g/dL 01/02/2017 5:44 AM [facility] RDW 17.4(H) 11.0 - 14.5 % 01/02/2017 5:44 AM [facility] RDW-STDEV 51.1 37.0 - 54.0 fL 01/02/2017 5:44 AM [facility] PLATELETS 764(H) 140 - 440 K/uL 01/02/2017 5:44 AM [facility] MPV 9.2 8.9 - 12.8 fL 01/02/2017 5:44 AM [facility] NEUTROPHILS 56 42 - 75 % 01/02/2017 5:44 AM [facility] LYMPHOCYTES 27 24 - 44 % 01/02/2017 5:44 AM [facility] MONOCYTES 8 2 - 10 % 01/02/2017 5:44 AM [facility] EOSINOPHILS 7 0 - 7 % 01/02/2017 5:44 AM [facility] BASOPHILS 1 0 - 1 % 01/02/2017 5:44 AM [facility] IMMATURE GRANULOCYTES 1 0 - 2 % 01/02/2017 5:44 AM CDT [facility] NEUTROPHIL ABSOLUTE 5.79 2.00 - 8.00 K/uL 01/02/2017 5:44 AM CDT [facility] LYMPHOCYTE ABSOLUTE 2.78 1.20 - 4.00 K/uL 01/02/2017 5:44 AM CDT [facility] MONOCYTE ABSOLUTE 0.85(H) 0.10 - 0.60 K/uL 01/02/2017 5:44 AM CDT [facility] EOSINOPHIL ABSOLUTE 0.76(H) 0.00 - 0.70 K/uL 01/02/2017 5:44 AM CDT [facility] BASOPHILS ABSOLUTE 0.10 0.00 - 0.20 K/uL 01/02/2017 5:44 AM CDT [facility] IMMATURE GRANULOCYTES ABSOLUTE 0.09 0.00 - 0.10 K/uL 01/02/2017 5:44 AM CDT [facility] Blood 01/02/2017 3:00 AM CDT 01/02/2017 5:35 AM CDT us Izabela Diamond MD HEMATOLOGY ORDERABLES Final Re sult [facility] CLIA# [id number] [address] [place] [address] documented in this encounter Visit Diagnoses Not on filedocumented in this encounter Care Teams Heel Sprayer Relationship Specialty Start Date End Date Shravan Jones DO PCP - General Family Practice 12/04/16 documented as of this encounter
--- OUTSIDE RECORDS SUMMARY | 2025-06-07 20:37 | XMS_ITS | Encounter Summary ---
Author Organization [facility] Address [address] [place] [address] Care Team Providers Care Stereoptician Name Role Phone Shravan Jones DO Primary Care Provider [phone]- [phone] Encounter Details Date Type Department Care Team (Late st Contact Info) Description 01/09/2017 Lab Requisition [facility] Laboratory Services [facility] [address] [place] [address] Izabela Diamond MD NO ADDRESS ON FILE Social History Tobacco Use Types Packs/Day Years Used Date Smoking Tobacco: Every Day Cigarettes Comments:pt lethargic Comments Unknown Sex and Gender Information Value Date Recorded Sex Assigned at Not on file 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 This will have limited patient impact. us Izabela Diamond MD CHEMISTRY ORDERABLES Final Res ult [facility] CLIA# [id number] [address] [place] [address] * (ABNORMAL) COMPREHENSIVE METABOLIC PANEL (01/09/2017 3:15 AM CDT) SODIUM 139 136 - 145 mmol/L 01/09/2017 5:53 AM CDT [facility] POTASSIUM 4.1 3.5 - 5.1 mmol/L 01/09/2017 5:53 AM T [facility] CHLORIDE 101 98 - 107 mmol/L 01/09/2017 5:53 AM T [facility] CO2 28 21 - 32 mmol/L 01/09/2017 5:53 AM T [facility] CALCIUM 8.8 8.4 - 10.1 mg/dL 01/09/2017 5:53 AM T [facility] BUN 18(H) 7 - 17 mg/dL 01/09/2017 5:53 AM T [facility] CREATININE 0.73 0.55 - 1.02 mg/dL 01/09/2017 5:53 AM T [facility] GLUCOSE 182(H) 74 - 106 mg/dL 01/09/2017 5:53 AM T [facility] TOTAL PROTEIN 8.4(H) 6.4 - 8.2 g/dL 01/09/2017 5:53 AM T [facility] ALBUMIN 2.5(L) 3.4 - 5.0 g/dL 01/09/2017 5:53 AM CDT [facility] BILIRUBIN TOTAL 0.2 0.2 - 1.0 mg/dL 01/09/2017 5:53 AM CDT [facility] ALKALINE PHOSPHATASE 99 25 - 100 U/L 01/09/2017 5:53 AM CDT [facility] AST 30 15 - 37 U/L 01/09/2017 5:53 AM CDT [facility] ALT 27 13 - 61 U/L 01/09/2017 5:53 AM CDT [facility] GFR >60 >=60 mL/min/1.7 3 sq meter 01/09/2017 5:53 AM T [facility] Comment: eGFR has not [...] 3 sq meter 01/09/2017 5:53 AM CDT [facility] ANION GAP 10 4 - 30 mmol/L 01/09/2017 5:53 AM T [facility] Blood 01/09/2017 3:15 AM CDT 01/09/2017 5:12 AM CDT us Izabela Diamond MD CHEMISTRY ORDERABLES Final Res ult [facility] CLIA# [id number] [address] [place] [address] * (ABNORMAL) CBC WITH DIFFERENTIAL (01/09/2017 3:15 AM CDT) WBC 8.7 4.5 - 11.0 K/uL 01/09/2017 5:20 AM [facility] RBC 4.63 4.20 - 5.40 M/uL 01/09/2017 5:20 AM [facility] HEMOGLOBIN 11.3(L) 12.0 - 16.0 g/dL 01/09/2017 5:20 AM [facility] HEMATOCRIT 36.8 36.0 - 46.0 % 01/09/2017 5:20 AM [facility] MCV 79.5(L) 84.0 - 103.0 fL 01/09/2017 5:20 AM [facility] MCH 24.4(L) 27.0 - 34.0 pg 01/09/2017 5:20 AM [facility] MCHC 30.7 30.0 - 35.0 g/dL 01/09/2017 5:20 AM [facility] RDW 17.3(H) 11.0 - 14.5 % 01/09/2017 5:20 AM [facility] RDW-STDEV 50.4 37.0 - 54.0 fL 01/09/2017 5:20 AM [facility] PLATELETS 463(H) 140 - 440 K/uL 01/09/2017 5:20 AM [facility] MPV 9.9 8.9 - 12.8 fL 01/09/2017 5:20 AM [facility] NEUTROPHILS 46 42 - 75 % 01/09/2017 5:20 AM [facility] LYMPHOCYTES 33 24 - 44 % 01/09/2017 5:20 AM [facility] MONOCYTES 8 2 - 10 % 01/09/2017 5:20 AM [facility] EOSINOPHILS 11(H) 0 - 7 % 01/09/2017 5:20 AM [facility] BASOPHILS 1 0 - 1 % 01/09/2017 5:20 AM [facility] IMMATURE GRANULOCYTES 0 0 - 2 % 01/09/2017 5:20 AM [facility] NEUTROPHIL ABSOLUTE 4.05 2.00 - 8.00 K/uL 01/09/2017 5:20 AM CDT [facility] LYMPHOCYTE ABSOLUTE 2.86 1.20 - 4.00 K/uL 01/09/2017 5:20 AM CDT [facility] MONOCYTE ABSOLUTE 0.73(H) 0.10 - 0.60 K/uL 01/09/2017 5:20 AM CDT [facility] EOSINOPHIL ABSOLUTE 0.95(H) 0.00 - 0.70 K/uL 01/09/2017 5:20 AM CDT [facility] BASOPHILS ABSOLUTE 0.11 0.00 - 0.20 K/uL 01/09/2017 5:20 AM CDT [facility] IMMATURE GRANULOCYTES ABSOLUTE 0.03 0.00 - 0.10 K/uL 01/09/2017 5:20 AM CDT [facility] Blood 01/09/2017 3:15 AM CDT 01/09/2017 5:12 AM CDT us Izabela Diamond MD HEMATOLOGY ORDERABLES Final Re sult [facility] CLIA# [id number] [address] [place] [address] * (ABNORMAL) HEMOGLOBIN A1C (01/09/2017 2:52 AM CDT) HEMOGLOBIN A1C 8.9(H) 4.0 - 6.0 % 01/09/2017 1:31 PM CDT [facility] EST. AVG GLUCOSE, A1C 209 mg/dL 01/09/2017 1:31 PM CDT [facility] Blood 01/09/2017 2:52 AM CDT 01/09/2017 6:53 AM CDT Narrative [facility] - 01/09/2017 1:31 PM CDT Test performed on [employer] instrumentation using HPLC methodology us Izabela Diamond MD CHEMISTRY ORDERABLES Final Res ult [facility] CLIA# [id number] [address] [place] [address] documented in this encounter Visit Diagnoses Not on filedocumented in this encounter Care Teams Stereoptician Relationship Specialty Start Date End Date Shravan Jones DO PCP - General Family Practice 12/04/16 documented as of this encounter
--- OUTSIDE RECORDS SUMMARY | 2025-06-07 20:37 | XMS_ITS | Clinical Summary ---
Author Organization [facility] Address [address] [facility] Attn: [place] [address] Care Team Providers Care Wet Process Assistant Head Miller Name Role Phone Shravan Jones DO Primary Care Provider [phone] Allergies Active Allergy Reactions Criticality Noted Date [...] subcutaneous injection. 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 Gender Identity Not on file Sexual Orientation [...] st Contact Info) Description 08/18/2025 11:00 AM CERTIFIED FINANCIAL PLANNER Office Visit [facility] Gastroenterology- [address] [place] [address] Kellee Garcia Sandoval, FOOD PRODUCTS SALES REPRESENTATIVE [address] [facility] [address] [place] [address] Health Maintenance Due Date Last [...] Required) Completed Medical Devices Implanted Type Area Machine Sneller Device Identifier Shelf Expiration Date Model / Serial / Lot Max 1gm Flour [id number] - [id number] Implanted:Qty : 2 on 12/17/2016 by Deandre Alan MD Biological Left: Lung CR BARD- [employer] INC 09/19/2019 [id number] / / [id number] Cath Dialysis Glidepath 14.5fr 24cm Std [id number] - [id number] Implanted:Qty : 1 on 03/18/2024 by Asif Mcclellan MD at [facility] Catheter Right: Chest BARD ANGEL VASC 09/21/2025 [id number] / / [id number] Clip Ligating Horizon Red [id number] - [facility] - [id number] Implanted:Qty : 1 on 08/10/2024 by Chato Fitch MD at [facility] Clip Left: Arm [employer]LE[employer] INC [id number] 05/16/2029 [id number] / / [id number] Clip Ligating Horizon Med Ti 220788 - Csc - [id number] Implanted:Qty : 1 on 08/10/2024 by Chato Fitch MD at [facility] Clip Left: Arm TELEFLEX- WECK CLOSURE SYS [id number] 03/31/2029 [id number] / / [id number] Director Of District Office Ligaclip Sml Mcs20 - [id number] Implanted:Qty : 1 on 08/10/2024 by Chato Fitch MD at [facility] Clip Left: Arm J&J- [employer] [id number] 03/23/2029 MCS20 / / [id number] Closure Perclose Prostyle Sut Mediate 63319-03 - [id number] Implanted:Qty : 1 on 09/24/2023 by Janell Beauchamp MD at [facility] Closure Device N/A: Groin LOVE- VASC DEVICE [id number] 06/23/2025 79208-57 / / [id number] Closure Perclose Prostyle Sut Mediate 64351-45 - [id number] Implanted:Qty : 1 on 10/24/2023 by Janell Beauchamp MD at [facility] Closure Device Right: Groin LOVE- VASC DEVICE [id number] 07/24/2025 51122-74 / / [id number] Oil Slc 8.5ml [id number] - [id number] Implanted:Qty : 1 on 06/23/2024 by Janey Carrera MD at [facility] National Eye Right: Eye [employer] LAB 12/21/2026 [id number] / [id number]:[id number] / [id number] Graft Vasc Propaten 4-9wzy42vk [id number] - [id number] Implanted:Qty : 1 on 08/10/2024 by Chato Fitch MD at [facility] Graft Left: Arm [employer] [id number] 05/21/2027 [id number] / [id number] / Agent Hemostat Surgicel 2x3in 1952s - [id number] Implanted:Qty : 1 on 08/10/2024 by Chato Fitch MD at [facility] Hemostatic Left: Arm J&J- ETHICON INC [id number] 12/21/20281952S / / [id number] Hemostatic Surgiflo 8ml W/ Thrombin 2994 - [id number] Implanted:Qty : 1 on 08/10/2024 by Chato Fitch MD at [facility] Hemostatic Left: Arm J&J- ETHICON INC [id number] 10/21/2025 2994 / / [id number] Agent Hemostat Surgicel 2x3in 1952s - [id number] Implanted:Qty : 1 on 08/10/2024 by Chato Fitch MD at [facility] Hemostatic Left: Arm J&J- ETHICON INC [id number] 12/21/20281952S / / [id number] Stent Synergy Xd 3.0x48mm Evrlms Elut [id number] 0 - [id number] Implanted:Qty : 1 on 09/24/2023 by Janell Beauchamp MD at [facility] Stent N/A: Coronary [employer] GEN[employer]E [id number] 03/31/2025 [id number] 300 / / [id number] Stent Synergy Xd 2.75a88uz Evrlms Elut [id number] - [id number] Implanted:Qty : 1 on 10/24/2023 by Janell Beauchamp MD at [facility] Stent Left: Coronary [employer] [id number] 08/19/2024 [id number] 220 / / [id number] Control Implant Funmi Procedures Procedure Name Priority Date/Time Associated Diagnosis Comments LIPID PANEL Routine 09/21/2023 6:47 PM CDT HEMOGLOBIN A1C Routine 09/21/2023 6:46 PM CDT from Last 3 Months or Most Recently Relevant to Health Maintenance Results * (ABNORMAL) LIPID PANEL (09/21/2023 6:47 PM CDT) [facility] Signature CHOLESTEROL 96 <200 mg/dL 09/21/2023 10:29 PM CDT [facility] TRIGLYCERIDE 164(H) <150 mg/dL 09/21/2023 10:29 PM CDT [facility] HDL 36(L) 40 - 59 mg/dL 09/21/2023 10:29 PM CDT [facility] LDL CALCULATED 27 <100 mg/dL 09/21/2023 10:29 PM CDT [facility] NON-HDL CHOLESTEROL 60 [...] esult [facility] CLIA # [id number] [address] [address] [place] [address] * (ABNORMAL) HEMOGLOBIN A1C (09/21/2023 6:46 PM CDT) HEMOGLOBIN A1C 6.8(H) <=5.6 % 09/23/2023 9:24 AM CDT [facility] [employer] [facility] EST. AVG GLUCOSE, A1C 148 mg/dL 09/23/2023 9:24 AM CDT [facility] Blood Venipuncture / Unknown 09/21/2023 6:46 PM CDT 09/21/2023 7:08 PM CDT Narrative [facility] - 09/23/2023 9:24 AM CDT HGB A1C INTERPRETATION NORMAL: <5.7% PRE-DIABETES: 5.7 - 6.4% DIABETES: 6.5% OR GREATER Luiz Lacy MD CHEMISTRY ORDERABLES Final R esult [facility] CLIA # [id number] [address] [place] [address] from Last 3 Months or Most Recently Relevant to Health Maintenance Insurance [place] Advance Directives For more information, please contact: [phone] * Full Code (Latest Code Status on File) Date Activated Date Inactivated Comments 10/24/2023 2:34 PM 10/25/2023 11:47 AM * Full Code Date Activated Date Inactivated Comments 10/24/2023 9:13 AM 10/24/2023 2:34 PM * Full Code Date Activated Date Inactivated Comments 09/24/2023 3:14 PM 09/25/2023 9:51 PM * Full Code Date Activated Date Inactivated Comments 09/21/2023 5:50 PM 09/24/2023 3:14 PM Care Teams Wet Process Assistant Head Miller Relationship Specialty Start Date End Date Shravan Jones DO PCP - General Family Practice 12/04/16
--- OUTSIDE RECORDS SUMMARY | 2025-06-07 20:37 | XMS_ITS | Encounter Summary ---
Author Organization [facility] Address [address] [place] [address] Care Team Providers Care Correctional Sergeant Name Role Phone Shravan Jones DO Primary Care Provider [phone] Reason for Visit * Reason Onset Date Comments Appointment Notification 11/05/2023 Encounter Details Date Type Department Care Team (Late st Contact Info) Description 11/05/2023 Telephone [place] [address] [place] [address] Janell Beauchamp MD [address] [place] [address] Appointment Notification Social History Tobacco Use Types Packs/Day Years Used Date Smoking Tobacco: Every Day Comments:Quit smoking: pt le thargic Social Connections Answer Date Recorded In a typical week, how many times do you talk on the telephone with family, friends, or neighbors? 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 For 11/25 as she has other appts in town that day. Please call pt to reschedule. [facility] Data Transcriber: Patrica Barney documented in this encounter Plan of Treatment Upcoming Encounters Date Type Department Care Team (Late st Contact Info) Description 08/18/2025 11:00 AM WARPER FIXER Office Visit [facility] [address] [facility] [address] [place] [address] Kellee Garcia, HAYDEE [address] [facility] [address] [place] [id number] documented as of this encounter Visit Diagnoses Not on filedocumented in this encounter Additional Health Concerns Infection Onset Date Last Indicated Resolved Time R/O C. diff 07/06/2024 07/06/2024 07/06/2024 8:35 AM WARPER FIXER documented as of this encounter Care Teams Correctional Sergeant Relationship Specialty Start Date End Date Shravan Jones DO PCP - General Family Practice 12/04/16 documented as of this encounter
--- OUTSIDE RECORDS SUMMARY | 2025-06-07 20:37 | XMS_ITS | Encounter Summary ---
Author Organization [facility], [facility] Address [address] [place] [address] Phone Care Team Providers Care Travel Ticketing Reviewer Name Role Phone Alexis Garcia MD Primary Care Provider [phone] Encounter Details Date Type Department Care Team (Late st Contact Info) Description 04/16/2022 Orders Only [facility] [address] [place] [address] Chronic kidney disease, Stage IV [...] (severe) documented in this encounter Care Teams Travel Ticketing Reviewer Relationship Specialty Start Date End Date Alexis Garcia MD [address] [place] [address] PCP - General Family Medicine 04/16/22 documented as of this encounter
--- OUTSIDE RECORDS SUMMARY | 2025-06-07 20:37 | XMS_ITS | Encounter Summary ---
Author Organization [facility] Address [address] [place] [address] Care Team Providers Care Almond Paste Mixer Name Role Phone Shravan Jones DO Primary Care Provider [phone] Encounter Details Date Type Department Care Team (Latest Contact Info) Description 05/14/2003 Outpatient [facility] Oral and Maxillo Surgery[address] [place] [address] Jimmy Tineo, CLIVES NO ADDRESS ON FILE UNSPEC DENTAL CARIES (Primary Dx); TOOTH POSITION ANOMALY Social History Tobacco Use Types Packs/Day Years Used Date Smoking Tobacco: Never Assessed Comments Unknown Sex and Gender Information Value Date Recorded Sex Assigned at Not on file Legal Sex Female 4:38 AM BUSINESS SERVICES ASSOCIATE Gender Identity Not on file Sexual Orientation Not on file documented as of this encounter Plan of Treatment Not on file documented as of this encounter Visit Diagnoses Diagnosis Unspecified dental caries- Primary 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
--- OUTSIDE RECORDS SUMMARY | 2025-06-07 20:37 | XMS_ITS | Encounter Summary ---
Author Organization [place] [facility], [facility] Address [address] [place] [address] Phone Care Team Providers Care Nail Cutter Name Role Phone Alexis Garcia MD Primary Care Provider [phone] Encounter Details Date Type Department Care Team (Late st Contact Info) Description 12/29/2024 TCM in Dialysis Clinic [facility], [facility] [address] [place] [address] Yann Lozano NP [address] [place] [address] Social History Tobacco Use Types [...] 12/29/2024 The patient was seen for a qrdr-gw-sjhu visit as part of Transitional Care Management services. Attending Electrical Engineering Draftsperson: MACHO JOHANSEN Dialysis Location: [facility] Schedule: Shift: 2 INTERACTIVE CONTACT This fshi-ac-eclx visit occurred within 2 business days of the patient?s discharge. COMMENTS: Seen on HD machine during dialysis HOSPITALIZATION SUMMARY Patient transitioned from: Hospital Patient transitioned to: Home Admit Date: 12/26/2024 Discharge Date: 12/28/2024 Discharged info reviewed: No outstanding diagnostic tests and treatments Reason for admission: Admission Dx: CP Discharge Dx: Non-cardiac chest pain ESRD Atherosclerotic heart disease of [place] coronary artery with other forms of angina [...] Three times a day With Meals. [facility] Allergies Allergen: acetaminophen Reaction: Nausea/Vomiting [...] to follow with cardiology, pcp, pulmonology and generation technician as noted on discharge. EDUCATION Education relevant [...] or secondary infection VISIT DIAGNOSES CPT Code 99435 - High complexity, seen within 7 days of discharge. I20.9 Angina pectoris (HCC) COMMENTS: Verified she has nitroglycerin on hand at home: reviewed appropriate usage. Instructed to call cardiology for follow up appointment K76.0 Fatty (change of) liver, not elsewhere classified COMMENTS: Newly dx on imaging. Per hospital records, has been referred to generation technician. Monitor for liver dysfunction, assess for any needed support J18.9 Pneumonia, unspecified organism COMMENTS: Monitor for impaired perfusion, fever/chills, increased SOB. If symptoms present, send for CXray. Advised to call pulmonology for follow up as referred by hospital I25.118 Atherosclerotic heart disease of [place] coronary artery with other forms of angina pectoris COMMENTS: RCA is moderate size and caliber vessel which is dominant had proximal 40% stenosis. Left main has luminal irregularity with distal 10% stenosis. Cardiology recommended medical management. Negative for angina on assessment today Reviewed symptoms, usage of nitro: instructed to call cardiology for follow up appt. I26.373 Atherosclerosis of other coronary artery bypass graft(s) [...] on filedocumented in this encounter Care Teams Nail Cutter Relationship Specialty Start Date End Date Alexis Garcia MD [address] [place] [address] PCP - General Family Medicine 04/16/22 documented as of this encounter
--- OUTSIDE RECORDS SUMMARY | 2025-06-07 20:37 | XMS_ITS | Encounter Summary ---
Author Organization [facility] Address [address] [place] [address] Care Team Providers Care Extraction Machine Operator Name Role Phone Shravan Jones DO Primary Care Provider [phone] Encounter Details Date Type Department Care Team (Late st Contact Info) Description 01/07/2017 Lab Requisition [facility] Laboratory Services [address] [place] [address] Izabela Diamond MD NO ADDRESS ON FILE Social History Tobacco Use Types Packs/Day Years Used Date Smoking Tobacco: Every Day Cigarettes Comments:pt lethargic Comments Unknown Sex and Gender Information Value Date Recorded Sex Assigned at Not on file 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 Gender Identity Not on file Sexual [...] - 40 mg/dL 01/07/2017 5:27 AM CDT [facility] Blood 01/07/2017 2:23 AM CDT 01/07/2017 5:01 AM CDT Izabela Diamond MD CHEMISTRY ORDERABLES Final Res ult Performing Organization Address City/[facility]/ZIP Co de Phone Number [facility] CLIA# [id number] [address] [place] [address] * (ABNORMAL) C-REACTIVE PROTEIN (01/07/2017 2:23 AM CDT) CRP 16.6(H) 0.0 - 2.9 mg/L 01/07/2017 5:27 AM CDT [facility] Blood 01/07/2017 2:23 AM CDT 01/07/2017 5:01 AM CDT Izabela Diamond MD CHEMISTRY ORDERABLES Final Res ult Performing Organization Address [facility] Co de Phone Number [facility] CLIA# [id number] [address] [place] [address] * (ABNORMAL) BASIC METABOLIC PANEL (01/07/2017 2:23 AM CDT) SODIUM 139 136 - 145 mmol/L 01/07/2017 5:27 AM CDT [facility]isk [facility] POTASSIUM 4.1 3.5 - 5.1 mmol/L 01/07/2017 5:27 AM CDT [facility] [place] [facility] CHLORIDE 104 98 - 107 mmol/L 01/07/2017 5:27 AM CDT [facility] [place] [facility] CO2 26 21 - 32 mmol/L 01/07/2017 5:27 AM CDT [facility] [place] [facility] CALCIUM 9.1 8.4 - 10.1 mg/dL 01/07/2017 5:27 AM CDT [facility] [place] [facility] BUN 14 7 - 17 mg/dL 01/07/2017 5:27 AM CDT [facility] CREATININE 0.82 0.55 - 1.02 mg/dL 01/07/2017 5:27 AM T [facility] GLUCOSE 274(H) 74 - 106 mg/dL 01/07/2017 5:27 AM T [facility] GFR >60 >=60 mL/min/1.7 3 sq meter 01/07/2017 5:27 AM T [facility] Comment: eGFR has not been validated for [...] 3 sq meter 01/07/2017 5:27 AM T [facility] ANION GAP 9 4 - 30 mmol/L 01/07/2017 5:27 AM [facility] Blood 01/07/2017 2:23 AM CDT 01/07/2017 5:01 AM CDT us Izabela Diamond MD CHEMISTRY ORDERABLES Final Res ult [facility] CLIA# [id number] [address] [place] [address] * (ABNORMAL) CBC WITH DIFFERENTIAL (01/07/2017 2:23 AM CDT) WBC 9.3 4.5 - 11.0 K/uL 01/07/2017 5:27 AM CDT [facility] RBC 4.19(L) 4.20 - 5.40 M/uL 01/07/2017 5:27 AM CDT [facility] HEMOGLOBIN 10.3(L) 12.0 - 16.0 g/dL 01/07/2017 5:27 AM [facility] HEMATOCRIT 33.2(L) 36.0 - 46.0 % 01/07/2017 5:27 AM [facility] MCV 79.2(L) 84.0 - 103.0 fL 01/07/2017 5:27 AM [facility] MCH 24.6(L) 27.0 - 34.0 pg 01/07/2017 5:27 AM [facility] MCHC 31.0 30.0 - 35.0 g/dL 01/07/2017 5:27 AM [facility] RDW 17.2(H) 11.0 - 14.5 % 01/07/2017 5:27 AM [facility] RDW-STDEV 49.4 37.0 - 54.0 fL 01/07/2017 5:27 AM [facility] PLATELETS 545(H) 140 - 440 K/uL 01/07/2017 5:27 AM [facility] MPV 10.2 8.9 - 12.8 fL 01/07/2017 5:27 AM [facility] NEUTROPHILS 53 42 - 75 % 01/07/2017 5:27 AM [facility] LYMPHOCYTES 26 24 - 44 % 01/07/2017 5:27 AM [facility] MONOCYTES 9 2 - 10 % 01/07/2017 5:27 AM [facility] EOSINOPHILS 11(H) 0 - 7 % 01/07/2017 5:27 AM [facility] BASOPHILS 1 0 - 1 % 01/07/2017 5:27 AM [facility] IMMATURE GRANULOCYTES 0 0 - 2 % 01/07/2017 5:27 AM [facility] NEUTROPHIL ABSOLUTE 4.88 2.00 - 8.00 K/uL 01/07/2017 5:27 AM [facility] LYMPHOCYTE ABSOLUTE 2.45 1.20 - 4.00 K/uL 01/07/2017 5:27 AM [facility] MONOCYTE ABSOLUTE 0.79(H) 0.10 - 0.60 K/uL 01/07/2017 5:27 AM CDT [facility] EOSINOPHIL ABSOLUTE 1.01(H) 0.00 - 0.70 K/uL 01/07/2017 5:27 AM CDT [facility] BASOPHILS ABSOLUTE 0.11 0.00 - 0.20 K/uL 01/07/2017 5:27 AM CDT [facility] IMMATURE GRANULOCYTES ABSOLUTE 0.04 0.00 - 0.10 K/uL 01/07/2017 5:27 AM CDT [facility] Blood 01/07/2017 2:23 AM CDT 01/07/2017 5:01 AM CDT us Izabela Diamond MD HEMATOLOGY ORDERABLES Final Re sult [facility] CLIA# [id number] [address] [place] [address] documented in this encounter Visit Diagnoses Not on filedocumented in this encounter Care Teams Extraction Machine Operator Relationship Specialty Start Date End Date Shravan Jones DO PCP - General Family Practice 12/04/16 documented as of this encounter
--- OUTSIDE RECORDS SUMMARY | 2025-06-07 20:37 | XMS_ITS | Clinical Summary ---
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 Gender Identity Not on file Sexual Orientation [...] Required) Completed Medical Devices Implanted Type Area Clinical Cytogeneticist Device Identifier Shelf Expiration Date Model / Serial / Lot Max dailym Flour [id number] - [id number] Implanted:Qty: 2 on 12/17/2016 by Deandre Alan MD at [facility] Biological Left: Lung [employer] 09/19/2019 [id number] / / [id number] Control Implant Funmi Procedures Procedure Name Priority Date/Time Associated Diagnosis Comments HEMOGLOBIN A1C Routine 01/09/2017 2:52 AM CDT from Last 3 Months or Most Recently Relevant to Health Maintenance Results * (ABNORMAL) HEMOGLOBIN A1C (01/09/2017 2:52 AM CDT) HEMOGLOBIN A1C 8.9(H) 4.0 - 6.0 % 01/09/2017 1:31 PM CDT [facility] EST. AVG GLUCOSE, A1C 209 mg/dL 01/09/2017 1:31 PM CDT [facility] Blood 01/09/2017 2:52 AM CDT 01/09/2017 6:53 AM CDT Narrative [facility] - 01/09/2017 1:31 PM CDT Test performed on [employer] instrumentation using HPLC methodology us Izabela Diamond MD CHEMISTRY ORDERABLES Final Res ult [facility] CLIA# [id number] [address] [place] [address] from Last 3 Months or Most Recently Relevant to [place] [address] [facility] MEDICAID Advance Directives For more information, please contact: [phone] * Full Code (Latest Code Status on File) Date Activated Date Inactivated Comments 12/17/2016 1:05 PM 12/27/2016 11:32 PM Care Teams Insulation Mechanic Relationship Specialty Start Date End Date Shravan Jones DO PCP - General Family Practice 12/04/16
--- OUTSIDE RECORDS SUMMARY | 2025-06-07 20:37 | XMS_ITS | Encounter Summary ---
Author Organization [facility] Address [address] [place] [address] Care Team Providers Care Economic Development Manager Name Role Phone Shravan Jones DO Primary Care Provider Encounter Details Date Type Department Care Team (Late st Contact Info) Description 12/28/2016 Lab Requisition 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 Gender Identity Not on file Sexual [...] - 4.9 mg/dL 12/28/2016 5:42 AM CDT [facility] Blood Collection / Unknown 12/28/2016 2:39 AM CDT 12/28/2016 5:01 AM CDT David Ortega MD CHEMISTRY ORDERABLES Final Res ult Performing Organization Address [facility] [place] [facility] Co de Phone Number [facility] CLIA# [id number] [address] [place] [id number] * MAGNESIUM LEVEL (12/28/2016 2:39 AM CDT) [facility] MAGNESIUM 1.6 1.6 - 2.6 mg/dL 12/28/2016 5:42 AM CDT [facility] Blood Collection / Unknown 12/28/2016 2:39 AM CDT 12/28/2016 5:01 AM CDT Narrative [facility] - 12/28/2016 5:42 AM CDT Due to Radar Repairer update, MG+ reference range has changed from 1.8 - 2.4 mg/dL to the new reference range of 1.6 - 2.6 mg/dL. This will have limited patient impact. David Ortega MD CHEMISTRY ORDERABLES Final Res ult Performing Organization Address [facility] [place] [facility] Co de Phone Number [facility] CLIA# [id number] [address] [place] [address] * PROTIME-INR (12/28/2016 2:39 AM CDT) [facility] PROTIME 15.0 12.3 - 15.5 Seconds 12/28/2016 5:16 AM CDT [facility] INR 1.1 0.8 - 1.2 12/28/2016 5:16 AM CDT [facility] Blood Collection / Unknown 12/28/2016 2:39 AM CDT 12/28/2016 5:01 AM CDT [place] [facility] - 12/28/2016 5:16 AM CDT Expected Values for INR: DVT/PE Goal INR 2.5; range 2.0 - 3.0 Valve Replacement Tissue Goal INR 2.5; range 2.0 - 3.0 Valve Replacement Mechanical Goal INR 3.0; range 2.5 - 3.5 POST-NE Goal INR 2.5; range 2.0 - 3.0 or Goal INR 3.0; range 2.5 - 3.5 Atrial Fibrillation Goal INR 2.5; range 2.0 - 3.0 Ischemic Stroke Goal INR 2.5; range 2.0 - 3.0 For additional information see Guidelines for Anticoagulation available from the pharmacy Wendy Vargas Pharm D. David Ortega MD HEMATOLOGY ORDERABLES Final Re sult [facility] CLIA# [id number] [address] [place] [address] * (ABNORMAL) PTT (12/28/2016 2:39 AM CDT) PTT 39.1(H) 24.8 - 38.8 seconds 12/28/2016 5:16 AM CDT [facility] Blood Collection / Unknown 12/28/2016 2:39 AM CDT 12/28/2016 5:01 AM CDT [place] [facility] - 12/28/2016 5:16 AM CDT Therapeutic Range: Hi-level PE/DVT heparin protocol 80.1 - 95.0 sec Lo-level PE/DVT heparin protocol 70.1 - 85.0 sec Cardiac Heparin Protocol 70.1 - 100.0 sec David Ortega MD HEMATOLOGY ORDERABLES Final Re sult [facility] CLIA# [id number] [facility] [place] [address] * (ABNORMAL) CBC WITH DIFFERENTIAL (12/28/2016 2:39 AM CDT) Pathologist [facility] WBC 11.0 4.5 - 11.0 K/uL 12/28/2016 5:09 AM CDT [facility] RBC 3.80(L) 4.20 - 5.40 M/uL 12/28/2016 5:09 AM CDT [facility] HEMOGLOBIN 9.3(L) 12.0 - 16.0 g/dL 12/28/2016 5:09 AM [facility] HEMATO[facility]IT 30.6(L) 36.0 - 46.0 % 12/28/2016 5:09 AM CDT [facility] MCV 80.5(L) 84.0 - 103.0 fL 12/28/2016 5:09 AM CDT [facility] MCH 24.5(L) 27.0 - 34.0 pg 12/28/2016 5:09 AM CDT [facility] MCHC 30.4 30.0 - 35.0 g/dL 12/28/2016 5:09 AM CDT [facility] RDW 17.3(H) 11.0 - 14.5 % 12/28/2016 5:09 AM T [facility] RDW-STDEV 51.8 37.0 - 54.0 fL 12/28/2016 5:09 AM CDT [facility] PLATELETS 757(H) 140 - 440 K/uL 12/28/2016 5:09 AM CDT [facility] MPV 8.9 8.9 - 12.8 fL 12/28/2016 5:09 AM CDT [facility] NEUTROPHILS 65 42 - 75 % 12/28/2016 5:09 AM CDT [facility] LYMPHOCYTES 19(L) 24 - 44 % 12/28/2016 5:09 AM CDT [facility] MONOCYTES 10 2 - 10 % 12/28/2016 5:09 AM CDT [facility] EOSINOPHILS 5 0 - 7 % 12/28/2016 5:09 AM CDT [facility] BASOPHILS 1 0 - 1 % 12/28/2016 5:09 AM CDT [facility] IMMATURE GRANULOCYTES 1 0 - 2 % 12/28/2016 5:09 AM CDT [facility] NEUTROPHIL ABSOLUTE 7.19 2.00 - 8.00 K/uL 12/28/2016 5:09 AM CDT [facility] LYMPHOCYTE ABSOLUTE 2.04 1.20 - 4.00 K/uL 12/28/2016 5:09 AM CDT [facility] MONOCYTE ABSOLUTE 1.06(H) 0.10 - 0.60 K/uL 12/28/2016 5:09 AM CDT [facility] EOSINOPHIL ABSOLUTE 0.60 0.00 - 0.70 K/uL 12/28/2016 5:09 AM CDT [facility] BASOPHILS ABSOLUTE 0.07 0.00 - 0.20 K/uL 12/28/2016 5:09 AM CDT [facility] IMMATURE GRANULOCYTES ABSOLUTE 0.07 0.00 - 0.10 K/uL 12/28/2016 5:09 AM T [facility] Blood Collection / Unknown 12/28/2016 2:39 AM CDT 12/28/2016 5:01 AM CDT us David Ortega MD HEMATOLOGY ORDERABLES Final Re sult [facility] CLIA# [id number] [address] [place] [address] * (ABNORMAL) COMPREHENSIVE METABOLIC PANEL (12/28/2016 2:39 AM CDT) SODIUM 143 136 - 145 mmol/L 12/28/2016 5:47 AM CDT [facility] POTASSIUM 3.3(L) 3.5 - 5.1 mmol/L 12/28/2016 5:47 AM [facility] CHLORIDE 103 98 - 107 mmol/L 12/28/2016 5:47 AM [facility] CO2 29 21 - 32 mmol/L 12/28/2016 5:47 AM [facility] CALCIUM 8.9 8.4 - 10.1 mg/dL 12/28/2016 5:47 AM [facility] BUN 13 7 - 17 mg/dL 12/28/2016 5:47 AM [facility] CREATININE 0.70 0.55 - 1.02 mg/dL 12/28/2016 5:47 AM [facility] GLUCOSE 46(LL) 74 - 106 mg/dL 12/28/2016 5:47 AM [facility] TOTAL PROTEIN 8.2 6.4 - 8.2 g/dL 12/28/2016 5:47 AM [facility] ALBUMIN 1.8(L) 3.4 - 5.0 g/dL 12/28/2016 5:47 AM [facility] BILIRUBIN TOTAL 0.2 0.2 - 1.0 mg/dL 12/28/2016 5:47 AM [facility] ALKALINE PHOSPHATASE 93 25 - 100 U/L 12/28/2016 5:47 AM [facility] AST 18 15 - 37 U/L 12/28/2016 5:47 AM [facility] ALT 18 13 - 61 U/L 12/28/2016 5:47 AM [facility] GFR >60 >=60 mL/min/1.7 3 sq meter 12/28/2016 5:47 AM [facility] Comment: eGFR has not been [...] 3 sq meter 12/28/2016 5:47 AM CDT [facility] ANION GAP 11 4 - 30 mmol/L 12/28/2016 5:47 AM CDT [facility] Blood Collection / Unknown 12/28/2016 2:39 AM CDT 12/28/2016 5:01 AM CDT us David Ortega MD CHEMISTRY ORDERABLES Final Res ult [facility] CLIA# [id number] [address] [place] [address] documented in this encounter Visit Diagnoses Not on filedocumented in this encounter Care Teams Economic Development Manager Relationship Specialty Start Date End Date Shravan Jones DO PCP - General Family Practice 12/04/16 documented as of this encounter
[2025-06-07 20:57] VITALS: BP 166/78; PULSE 79; O2SAT 96
--- NOTE | 2025-06-07 21:04 | XRR_ITS ---
PROCEDURE INFORMATION: Exam: XR Right Hand Exam date and time: 06/07/2025 9:08 PM Age: 39 years old Clinical indication: Pain; Swelling; Hand; Right; Additional info: Hand pain/swelling TECHNIQUE: Imaging protocol: Radiologic exam of the right hand. Views: 3 or more views. COMPARISON: No relevant prior studies available. FINDINGS: Bones/joints: There is periarticular demineralization. Equivocal erosive disease along the radial aspect of the 2nd and 3rd proximal phalanges at the proximal interphalangeal joints. No fracture or destructive lesion. Soft tissues: Generalized soft tissue swelling. No soft tissue gas or radiopaque foreign body. XR/XR hand RT min 3V* [id number] IMPRESSION: Constellation of findings suggest a may be an underlying inflammatory arthropathy particularly involving the 2nd and 3rd proximal interphalangeal joints. No evidence of fracture or dislocation. Soft tissue swelling of the fingers noted without gas or visible foreign body.
--- NOTE | 2025-06-07 21:16 | W.ED.SKABFB ---
HPI - Skin/Abscess/Foreign Bdy General: Chief complaint: Skin/Abscess/Foreign Body Stated complaint: Rt hand rash/blister pain Time Seen by Provider: 06/07/25 20:44 Source: patient Mode of arrival: ambulatory Limitations: no limitations History of Present Illness: This patient is a 39-year-old female, well-known to the emergency department here and with extensive past medical history, who is presenting with sudden onset right hand pain, primarily involving the palmar surface, beginning just this evening. She is reporting acute, rapidly progressive swelling extending into the digits, most pronounced in the index finger with fusiform appearance, and additional swelling involving 3rd through 5th digits. There is associated erythema and swelling extending proximally into the wrist. Patient is also endorsing significant pain with active range of motion, notes feeling nauseous but no fevers. No numbness or sensory changes distally, she is complaining of 10/10 pain at this time. She is denying any recent trauma, puncture wounds, lacerations, bites, injections, or IV drug use. Denying any prior similar episodes, history of gout or inflammatory arthritis, no recent infections. They deny fevers, chills, numbness, or tingling,, symptoms began suddenly without preceding injury. MD complaint: other (Swelling of right hand) Onset (ago): hour(s) Associated symptoms: Reports nausea; Deny chills, fever(s) or vomiting Related Data Home Medications ?Medication ?Instructions ?Recorded ?Confirmed gabapentin 100 mg capsule 100 mg PO TID 12/27/23 05/10/25 clopidogrel 75 mg tablet 75 mg PO DAILY 04/28/24 05/10/25 escitalopram oxalate 20 mg tablet 20 mg PO DAILY anxiety 02/14/25 05/10/25 folic acid 1 mg tablet 1 mg PO DAILY 02/14/25 05/10/25 hydralazine 25 mg tablet 12.5 mg PO BID 02/14/25 05/10/25 nitroglycerin 0.4 mg sublingual See Rx Instructions .Route .COMPLEX 02/22/25 05/10/25 tablet cyclobenzaprine 10 mg tablet 10 mg PO TID PRN MUSCLE SPASM 04/22/25 05/10/25 tramadol 50 mg tablet 50 mg PO DAILY 04/22/25 05/10/25 Previous Rx's ?Medication ?Instructions ?Recorded blood-glucose sensor (Bambuser G6 #3 ea 06/12/22 Sensor device) blood-glucose transmitter (Dexcom #1 ea 06/12/22 G6 Transmitter device) blood-glucose,surgical resident,cont #1 ea 06/12/22 (Dexcom G6 Business Attorney) sevelamer carbonate 800 mg tablet 800 mg PO TID #90 tabs 09/16/23 aspirin 81 mg tablet,delayed 81 mg PO QAM 30 days #30 tabs 03/28/24 release atorvastatin 40 mg tablet 40 mg PO BEDTIME 30 days #30 tabs 03/28/24 AFO brace #1 ea 04/20/24 diabetic shoes with 3 inserts #1 ea 04/20/24 amlodipine 5 mg tablet 5 mg PO DAILY #30 tabs 09/30/24 colchicine 0.6 mg tablet 0.6 mg PO DAILY #30 tabs 04/23/25 isosorbide mononitrate 60 mg 60 mg PO DAILY #30 tabs 04/23/25 tablet,extended release 24 hr metoclopramide HCl 5 mg tablet 5 mg PO Q8H PRN nausea and 05/23/25 (Reglan) vomiting #20 tabs sodium polystyrene sulfonate 15 15 g PO DAILY #150 grams 05/23/25 gram oral powder insulin aspart U-100 100 unit/mL See Rx Instructions .Route 06/03/25 subcutaneous solution (Novolog .COMPLEX #10 mL U-100 Insulin aspart) clindamycin HCl 300 mg capsule 300 mg PO BID 7 days #14 caps 06/07/25 Allergies Allergy/AdvReac Type Severity Reaction Status Date / Time acetaminophen AdvReac Mild ADR-Gastrointestinal Verified 05/30/25 22:14 Upset Review of Systems General: Reports: 10 or more systems reviewed and unremarkable except in HPI and below Const: Denies: fever(s) or chills Card: Denies: chest pain Resp: Denies: dyspnea or productive cough GI: Reports: nausea; Denies: abdominal pain, vomiting or diarrhea : Denies: flank pain Musc: Reports: extremity pain (Right hand), extremity swelling (Right hand) and limited range of motion (Digits and right hand, hand and wrist); Denies: neck pain, back pain, joint pain, joint swelling, joint redness, joint warmth or muscle weakness Skin/Breast: Denies: rash Neuro: Denies: headache(s), numbness in extremities or weakness in extremities PFSH ED PFSH: Medical History Insulin dependent diabetes mellitus with complications Chest pain Diabetes mellitus Primary hypertension HTN (hypertension), benign Hyperkalemia Headache Accelerated hypertension Uncontrolled type 1 diabetes mellitus ESRD (end stage renal disease) Dialysis complication Hypoglycemia Hemodialysis catheter dysfunction Colitis End stage renal disease on dialysis COPD (chronic obstructive pulmonary disease) Transaminitis Intractable nausea and vomiting Hyperlipidemia CHF (congestive heart failure), NYHA class III Pulmonary hypertension Coronary artery disease involving [place] heart with angina pectoris, unspecified vessel or lesion type Neurogenic bladder COVID-19 Tobacco dependence Drug abuse Anemia Community acquired pneumonia Esophagitis Long-term insulin use History of pancreatitis Celiac disease Recurrent UTI Non-alcoholic fatty liver disease Arnold-Chiari malformation Diabetic gastroparesis -continue Reglan Diabetic neuropathy associated with type 1 diabetes mellitus Headache, common migraine, intractable, with status migrainosus Pleural effusion 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 History of lung surgery -s/p LLL lobectomy secondary to cavitary pneumonia (2017) History of endoscopy History of cholecystectomy Family History Grandfather Diabetes Mother CAD (coronary artery disease) Diabetes Heart disease Hypertension Brother Acute lymphoblastic leukemia (ALL) in child Grandmother Thyroid disease Denies family history of Colon cancer Ovarian cancer Prostate cancer Hyperlipidemia Breast cancer Uterine cancer Stroke Social History Smoking and tobacco/nicotine status: former use of tobacco/nicotine Quit status (tobacco/nicotine): has quit using Former quit date comment: She previously smoked <1/2 PPD, quit July 2023. 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 Erythema present over the palmar surface of the hand extending proximally towards the wrist. No open wounds, puncture layne, or obvious trauma. No obvious deformity. There is tenderness along the flexor tendon sheath particularly in the index finger but also involving the adjacent digits. Warmth over the affected digits and palm. No crepitus or fluctuance appreciated. Pain with active flexion and extension of the fingers. Pain with passive extension, consistent with Kanavel sign. Sensation intact to light touch in all digits. Cap refill less than 2 seconds in all fingers. Radial pulse palpable but seems diminished compared to her left upper extremity. No proximal lymphadenopathy. Elbow examination normal. Neuro: COMMON NORMALS: patient oriented x3, moves all extremities, no focal motor deficits and no sensory deficits noted SENSORIUM/ORIENTATION: Yes alert MENINGEAL SIGNS: Yes no meningeal signs Skin: COMMON NORMALS: no rashes or lesions noted GENERAL SKIN EXAM: no rashes or lesions noted Course Reevaluation(s): Reevaluation #1: Patient was seen here in the emergency department, and tells me that she had blood drawn out of that same hand that she is having symptoms on, but on the dorsal aspect. She reports to me a history of predisposition to staph infection. Bedside POCUS unremarkable for any fluid around the tendon sheath. Time: 21:30 Vital Signs: Vital signs: Vital Signs Temperature 98.2 F 06/07/25 20:35 Pulse Rate 79 06/07/25 20:57 Respiratory Rate 20 H 06/07/25 20:35 Blood Pressure 166/78 06/07/25 20:57 Pulse Oximetry 96 06/07/25 20:57 Oxygen Delivery Me thod Room Air 06/07/25 20:57 MDM - Skin/Abscess/Foreign Bdy Medicial Decision Making This patient is a predialysis end-stage renal disease patient presenting with acute right hand swelling and erythema. Her initial examination was concerning due to mild fusiform swelling to the right index finger and pain with passive and active range of motion, and etiology at that time was worrisome for FTS. However was noted over the course of the emergency department that the fusiform swelling had actually been improving and the erythema that was initially streaking towards the wrist was also improving, of note she recently had blood drawn from hand last night with her ED visit, concerned that possible seeding bacteria could have extended to the flexor sheath. I had consulted with Dr. Buckley here in the ED who agrees that this appears more cellulitic at this time and less likely FTS due to the improvement, and though there were initial Kanavel positivity testing this seems to be more of a transient finding due to the improvement that we had been noted. She was given pain medicine and nausea medicine here which did greatly improve her symptoms as well. The x-ray taken of the right hand initially showed some findings of underlying inflammatory arthropathy of the 2nd and 3rd proximal interphalangeal joints. Bedside POCUS by myself was nondiagnostic I did not appreciate any fluid surrounding the flexor sheath. She had no significant or concerning elevation of her CRP or ESR, she does have labs consistent with predialysis as she has dialysis in the morning, her potassium was 5.8 creatinine 7.9. No need for emergent dialysis at this time. This is consistent with early or localized infection and at this time we will do clindamycin, but she is strongly urged to return if her symptoms worsen specifically increasing pain, swelling, erythema, or onset of systemic symptoms. She understands and does agree with this plan and feels comfortable going home. She is to undergo her regular dialysis in the morning, and her current antibiotic regimen is safe for her ESRD status. Close follow-up and monitoring her emphasized given her comorbidities and risk factors. Lab Data 06/07/25 21:21 06/07/25 21:21 Radiology Impressions Hand X-Ray 06/07/25 21:04 IMPRESSION: Constellation of findings suggest a may be an underlying inflammatory arthropathy particularly involving the 2nd and 3rd proximal interphalangeal joints. No evidence of fracture or dislocation. Soft tissue swelling of the fingers noted without gas or visible foreign body. Laboratory Results WBC 5.26 10^3/uL (3.29-11.43) 06/07/25 21: RBC 3.53 10^6/uL (3.85-5.65) L 06/07/25 21:21 Hgb 10.60 g/dL (11.27-16.99) L 06/07/25 21:21 Hct 33.6 % (36-47) L 06/07/25 21:21 MCV 95.2 fl (85-98) 06/07/25 21:21 MCH 30.0 pg (27-33) 06/07/25 21: MCHC 31.5 g/dL (30-55) 06/07/25 21: RDW 14.3 % (12.1-15.1) 06/07/25 21: Plt Count 112 10^3/cmm (157-399) L 06/07/25 21:21 MPV 9.9 fL (7.4-10.4) 06/07/25 21:21 Neut % (Auto) 60.6 % 06/07/25 21: Lymph % (Auto) 22.8 % 06/07/25 21:21 Power % (Auto) 9.7 % 06/07/25 21: Eos % (Auto) 5.9 % 06/07/25 21: Baso % (Auto) 0.8 % 06/07/25 21: Neut # (Auto) 3.19 10^3/uL (1.8-7.7) 06/07/25 21:21 Lymph # (Auto) 1.2 10^3/uL (0.8-4.8) 06/07/25 21: Power # (Auto) 0.5 10^3/uL (0.2-0.9) 06/07/25 21:21 Eos # (Auto) 0.3 10^3/uL (0.0-0.8) 06/07/25: Baso # (Auto) 0.0 10^3/uL (0.0-0.1) 06/07/25 21:21 Nucleated RBC % (auto) 0 % 06/07/25 21:21 Nucleated RBCs # 0.0 /100WBC 06/07/25 21: ESR 24 mm/hr (0-15) H 06/07/25 21:21 Sodium 137 mmol/L (136-145) 06/07/25 21:21 Potassium 5.8 mmol/L (3.5-5.1) H 06/07/25 21:21 Chloride 99 mmol/L (98-107) 06/07/25 21:21 Carbon Dioxide 24 mmol/L (22-29) 06/07/25 21:21 Anion Gap 19.8 (5-19) H 06/07/25 21:21 BUN 48 mg/dL (6-20) H 06/07/25 21:21 Creatinine 7.5 mg/dL (0.5-0.9) H* 06/07/25 21:21 GFR Calculation 6.1 mL/min (90-130) L 06/07/25 21:21 Glucose 227 mg/dL (65-115) H 06/07/25 21:21 Calculated Osmolality 304 mOsm/kg (285-295) H 06/07/25 21:21 Calcium 8.3 mg/dL (8.5-10.5) L 06/07/25 21:21 Total Bilirubin 0.3 mg/dL (0.15-1.2) 06/07/25 21:21 AST 17 U/L (0-32) 06/07/25 21:21 ALT 21 U/L (0-33) 06/07/25 21:21 Alkaline Phosphatase 172 U/L (35-105) H 06/07/25 21:21 C-Reactive Protein 3.0 mg/L (0.0-4.9) 06/07/25 21:21 Total Protein 7.0 g/dL (6.6-8.7) 06/07/25 21:21 Albumin 3.8 g/dL (3.5-5.2) 06/07/25 21:21 Globulin 3.2 g/dL (1.3-4.6) 06/07/25 21:21 All radiology interpretation(s) finalized by discharge Discharge Plan Discharge Patient Disposition: Home Clinical Impression: Cellulitis of hand, right Condition: Stable Prescriptions: New clindamycin HCl 300 mg capsule 300 mg PO BID 7 Days Qty: 14 0RF No Action (DME) AFO brace See Rx Instructions .Route .MEDSUPPLY Qty: 1 0RF Rx Instructions: As directed to the [facility] (DME) diabetic shoes with 3 inserts See Rx Instructions .Route .MEDSUPPLY Qty: 1 0RF Rx Instructions: As directed to the [facility] ([facility]) Dexcom G6 Business Attorney Misc See Rx Instructions .Route Qty: 1 0RF Rx Instructions: As directed ([facility]) Dexcom G6 Sensor Device See Rx Instructions .Route Qty: 3 0RF Rx Instructions: As directed ([facility]) Dexcom G6 Transmitter Device See Rx Instructions .Route Qty: 1 0RF Rx Instructions: As directed insulin aspart U-100 [Novolog U-100 Insulin aspart] 100 unit/mL solution See Rx Instructions .ROUTE .COMPLEX MDD 35 units Qty: 10 0RF Rx Instructions: 35 units daily via insulin pump; atorvastatin 40 mg tablet 40 mg PO BEDTIME 30 Days Qty: 30 0RF aspirin 81 mg tablet,delayed release (DR/EC) 81 mg PO QAM 30 Days Qty: 30 0RF amlodipine 5 mg Tablet 5 mg PO DAILY Qty: 30 0RF sodium polystyrene sulfonate 15 gram powder 15 g PO DAILY Qty: 150 0RF metoclopramide HCl [Reglan] 5 mg tablet 5 mg PO Q8H PRN (Reason: nausea and vomiting) Qty: 20 0RF sevelamer carbonate 800 mg Tablet 800 mg PO TID Qty: 90 0RF gabapentin 100 mg Capsule 100 mg PO TID clopidogrel 75 mg tablet 75 mg PO DAILY hydralazine 25 mg tablet 12.5 mg PO BID folic acid 1 mg tablet 1 mg PO DAILY escitalopram oxalate 20 mg tablet 20 mg PO DAILY nitroglycerin 0.4 mg tablet, sublingual See Rx Instructions .ROUTE .COMPLEX Rx Instructions: DISSOLVE ONE TABLET UNDER THE TONGUE EVERY 5 MINUTES NEEDED FOR CHEST PAIN. DO NOT EXCEED A TOTAL OF 3 DOSES IN 15 MINUTES. tramadol 50 mg tablet 50 mg PO DAILY cyclobenzaprine 10 mg tablet 10 mg PO TID PRN (Reason: MUSCLE SPASM ) colchicine 0.6 mg tablet 0.6 mg PO DAILY Qty: 30 0RF isosorbide mononitrate 60 mg tablet extended release 24 hr 60 mg PO DAILY Qty: 30 0RF Discharge Orders: Discharge ED (Routine); Ordered 06/07/25 Ordered By: Chato Bradshaw Referrals: Elizabeth Dougherty FNP [Primary Care Provider, Unknown] Patient Instructions: Patient Portal & [place] Instructions Activity Restrictions/Additional Instructions: Discharge Instructions Diagnosis: Cellulitis of the right hand Your Condition: You were evaluated for an infection of the skin on your right hand called cellulitis. Testing showed that your inflammatory markers are not significantly elevated, and your other laboratory results are at your usual baseline levels. An ultrasound of your hand was reassuring and did not show signs of a deeper infection. You are being discharged home to continue treatment with antibiotics. Medications: - Clindamycin: Take one dose twice daily (every 12 hours) for 7 days to treat the infection - No adjustment is needed for your kidney disease or dialysis - Continue all your other regular medications as prescribed Dialysis: - Attend your scheduled dialysis session in the morning as planned - Your dialysis schedule does not need to change because of this infection Wound Care: - Keep the affected area clean and dry - Wash your hands before and after touching the infected area - You may apply a clean, dry bandage if needed Warning Signs - Return to the Emergency Department if you develop: - Fever (temperature above 100.4?F or 38?C) - Severe worsening of swelling or pain in your hand - Red streaks tracking up your arm from the infected area - Pus or drainage from the wound - Numbness or inability to move your fingers - Chills, confusion, or feeling very ill - Severe diarrhea (clindamycin can rarely cause serious intestinal infections) Follow-Up: - Follow up with your primary care provider or thinner sprayer within 3-5 days - If your symptoms are not improving after 2-3 days of antibiotics, contact your doctor sooner - Complete the full 7-day course of antibiotics even if you start feeling better Additional Instructions: - Avoid trauma to the affected hand - Elevate your hand when possible to reduce swelling - Do not stop taking the antibiotic early, as this can lead to treatment failure Print Language: Setswana Coding Level of Care Code ED Owner for Reji Chandler
[2025-06-07 21:43] LABS: Hematocrit 33.6 % (36-47); Hemoglobin 10.60 g/dL (11.27-16.99); Mean Corpuscular HGB Conc 31.5 g/dL (30-55); Mean Corpuscular Hemoglobin 30.0 pg (27-33); Mean Corpuscular Volume 95.2 fl (85-98); Nucleated Red Blood Cells % 0 %; Platelet Count 112 10^3/cmm (157-399); Red Blood Count 3.53 10^6/uL (3.85-5.65); White Blood Count 5.26 10^3/uL (3.29-11.43)
[2025-06-07 21:55] LABS: Alanine Aminotransferase 21 U/L (0-33); Albumin Level 3.8 g/dL (3.5-5.2); Alkaline Phosphatase 172 U/L (35-105); Anion Gap 19.8 (5-19); Aspartate Amino Transferase 17 U/L (0-32); Blood Urea Nitrogen 48 mg/dL (6-20); Calcium 8.3 mg/dL (8.5-10.5); Carbon Dioxide 24 mmol/L (22-29); Chloride 99 mmol/L (98-107); Globulin 3.2 g/dL (1.3-4.6); Glucose 227 mg/dL (65-115); Osmolality Calculated 304 mOsm/kg (285-295); Potassium 5.8 mmol/L (3.5-5.1); Sodium 137 mmol/L (136-145); Total Protein 7.0 g/dL (6.6-8.7)
[2025-06-07] MEDS: HYDROmorphone 0.5 MG/0.5 ML INJ IVP (22:16)
[2025-06-07] MEDS: ondansetron 2 mg/ML SDV 2 mL 4 MG IVP (22:16)
== END 2025-06-07 22:50 | disposition home or self-care (01) ==
PROVIDERS: Emergency Provider Physician Assistant; PCP Nurse Practitioner Family
DX: L03.113 Cellulitis of right upper limb (principal); Z79.4 Long term (current) use of insulin; Z79.82 Long term (current) use of aspirin; Z79.02 Long term (current) use of antithrombotics/antiplatelets; Z87.891 Personal history of nicotine dependence; E10.22 Type 1 diabetes mellitus with diabetic chronic kidney disease; I13.2 Hypertensive heart and chronic kidney disease with heart failure and with stage 5 chronic kidney disease, or end stage renal disease; I50.9 Heart failure, unspecified; N18.6 End stage renal disease; Z99.2 Dependence on renal dialysis; J44.9 Chronic obstructive pulmonary disease, unspecified; E78.5 Hyperlipidemia, unspecified; I25.119 Atherosclerotic heart disease of native coronary artery with unspecified angina pectoris
CPT/HCPCS: 36415; 73130; 80053; 85025; 85651; 86140; 87040; 96374; 96375; 99284; J1171; J2405

== ENCOUNTER 2025-06-13 15:22 | Emergency (ER) | payer MEDICARE, MEDICAID, SELFPAY ==
--- OUTSIDE RECORDS SUMMARY | 2025-06-13 15:27 | XMS_ITS | Continuity of Care Document ---
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 09/21/2024 13:40:36 09/11/[address] of abdomen completed [facility], DonteL.CJacobo 09/13/2024 14:56:32 09/10/19 25 angiography of coronary artery completed [facility] 09/13/2024 14:50:21 09/09/19 25 echocardiography completed [facility], DonteL.CJacobo 09/13/2024 14:54:55 09/08/19 25 plain X-ray of chest completed [facility], DonteL.CJacobo 09/13/2024 14:57:51 08/24/[address] of chest completed [facility] 08/24/2024 12:28:02 04/28/20 24 plain X-ray of chest completed [facility].L.C[facility] 04/30/2024 11:08:42 03/31/20 24 plain X-ray of chest completed [facility] L.L.C[facility] 04/01/2024 14:05:05 03/27/20 24 imaging guided percutaneous transluminal angioplasty of coronary artery with contrast completed [facility] L.L.C[facility]obo 10/05/2024 10:23:19 02/28/20 24 radiographic procedure on chest and/or abdomen completed [facility], LJacoboL.CJacobo 03/04/2024 15:02:31 02/28/[address] of abdomen completed [facility] L.L[facility] 03/04/2024 15:03:26 01/19/20 24 diagnostic radiography of abdomen completed [facility] 01/21/2024 17:26:25 01/06/20 24 plain X-ray of chest completed [facility] 01/07/2024 15:42:42 12/27/19 24 plain X-ray of chest completed [facility] 12/29/2023 23:23:06 12/27/19 24 CT of chest, abdomen and pelvis completed [facility] 12/29/2023 23:32:58 12/24/19 24 plain X-ray of chest completed [facility], LJacoboLJacoboC. 12/29/2023 23:56:29 12/20/[address] of chest completed [facility], LJacoboLJacoboCJacobo 12/21/2023 12:33:52 12/20/19 24 plain X-ray of chest completed [facility] 12/21/2023 12:34:44 12/09/19 24 plain X-ray of chest completed [facility] 12/12/2023 10:16:37 12/05/19 24 plain X-ray of chest completed [facility] 12/06/2023 13:24:46 11/28/19 24 cardiac catheterization completed [facility] 12/06/2023 13:11:07 11/28/19 24 imaging guided percutaneous transluminal angioplasty of coronary artery with contrast completed [facility] 10/05/2024 10:22:55 11/27/19 24 plain X-ray of chest completed [facility] 11/28/2023 10:19:35 10/24/19 24 imaging guided percutaneous transluminal angioplasty of coronary artery with contrast completed [facility], L.L.CJacobo 10/05/2024 10:22:32 10/16/19 24 imaging guided percutaneous transluminal angioplasty of coronary artery with contrast completed [facility] L.L.CJacobo 10/05/2024 10:22:12 10/07/19 24 plain X-ray of chest completed [facility], DonteLJacoboCJacobo 10/08/2023 17:52:40 09/20/19 24 echocardiography completed [facility], LJacoboL.CJacobo 09/26/2023 12:48:56 lobectomy of lung completed XIMENAMAHI KEATING [facility], KaelynCJacobo 10/10/2023 12:32:47 amputation completed [facility], LJacoboL.CJacobo 08/24/2024 12:24:04 cholecystectomy completed [facility], DonteLJacoboCJacobo 09/13/2024 14:49:22 Imaging Results None recorded. Procedure Notes None recorded. Medical Equipment None Reported. Allergies Allergen ID Allergen Name Allergen Category Reaction Reaction Severity Criticality Documentation Date Start Date Code Code System Note Provider Name and Address Organization Details Recorded Time 72886 acetamino phen medicatio n abdominal pain moderate low 01/19/20232021 161 RxNorm GI upset /into leran graham coles [facility] L.L.CJacobo 4 07:57:42 99182 acetamino phen medicatio n Not available Not available Not available 02/21/20242023 161 RxNorm NAJMA HOUSER, [facility] [address] [place], [address] , [facility], DonteL.CJacobo 5 15:59:31 80510 ranolazin e medicatio n Not available Not available Not available 04/14/2025 98148 RxNorm Hallu cinat ions XIMENA coles [facility], LJacoboL.C. 11:33:58 Medications Name Sig Start Date Stop [...] Available tizanidin e 4 mg tablet Take 4 mg by oral route. 06/09 completed Not Available Not Available Not Available [...] wanted her to decrease to 100mg TID [facility], 02/27 and 02/28 Not Available Not Available Not Available bumetanid e 1 mg tablet Take one tablet on Saturday, Saturday, y & Saturday. 2024 active Not Available Not Available Not Avai lable folic acid 1 mg tablet Take 1 tablet every day by oral route for 90 days. 2024 active Not Available Not Available Not Avai lable dorzolami de 22.3 mg-timolo l 6.8 mg/mL [...] t Available colchicin e 0.6 mg tablet Take 1 tablet every day by oral route as needed for 30 days, for chest wall pain. 2024 active Not Available Not Available Not Avai lable lisinopri l 40 mg tablet TAKE 1 [...] times per day 10/09 completed VO CH/jl; 89484; Recorded 05/14/20 19 10:02AM by Leydi Jessica [...] puff every day by inhalati on route. 06/09 completed Not Available Not Available Not Available Veltassa 8.4 gram oral powder packet [...] Last Updated DateTime 152.4 cm 27.7 kg/m2 94385.1 2 g 98 % 80 /min 18 /min 136/80 mm[Hg] XIMENA KEATING [facility] 15:40:44 Social History Question Answer Notes LastModified by Organizat ion Details LastModified Time Tobacco Smoking Status Former Smoker Quit 07/2023 XIMENA KEATING [facility] 12/24/2023 12:30:16 What Type Of Diet Are You Following? REGULAR [email or web address] Information not available 12/24/2023 Which Illicit Or Recreational Drugs Have You Used? Smokes Meth [email or web address] Information not available 10/10/2023 When Did You Quit Smoking? 1-5yearssin celastcigar ette Information not available 12/24/2023 What Was The Date Of Your Most Recent Tobacco Screening? 12/24/2023 Information not available 12/24/2023 What Is Your Current Pack Years? 20-29packye ars Information not available 12/24/2023 What Is Your Relationship Status? Single [email or web address] Information not available 12/24/2023 At What Age [...] or recreational drugs? Yes Quit Meth 07/2023 [email or web address] Information not available 12/24/2023 Do you or have you ever used any other forms of tobacco or nicotine? No Information not available 12/24/2023 What is your level of alcohol consumption? None [email or web address] Information not available 10/10/2023 Are you currently employed? No disabled [email or web address] Information not available 10/10/2023 Are you able to walk independently without assistance or assistive devices? YESASSIST [email or web address] Information not available 10/10/2023 Are you able to care for yourself independently? No Mother is her caregiver. [email or web address] Information not available 10/10/2023 Do you or have you ever used any nicotine-free cigarettes, vape, or chewing tobacco? No Information not available 12/24/2023 Mental Status None recorded. Family History Relationship Description Onset Age of this Age Resolved Age Notes LastModified by Organization Details LastModified Time Mother Myocardial infarction In her 50's [email or web address] Not available 12/29/2023 23:44:26 Mother Rheumatoid arthritis [email or web address] Not available 12/28 23:44:44 Brother Acute lymphoid leukemia [email or web address] Not available 10/18 18:24:23 Medical History Condition [...] pneumococcal polysaccharide PPV23 8 completed SUZANNE HEATON [address] [place] [address], [address] 12/24/2023 12:51:09 Past Encounters Encounter ID Performer Location Encounter Start Date Encounter Closed Date Diagnosis/Indication Diagnosis SNOMED-CT Code Diagnosis ICD10 Code Diagnosis IMO Codes Diagnosis Note [id number] [facility] [address] [place] [address] 04/14/2025 11:22:24 04/14/2025 14:24:51 Chronic chest pain 5866105951 94328 R07.9 G89.29 430487 Essential hypertension 46107352 I10 69215 Took her blood pressure medication about an hour ago. Pressure at home has been pretty good. Type 1 mainor betes mellitus 28197208 E10.[address] Ortega. Will schedule pump training with patient on a MWF. Will have housing management officer set up a time where she can use an exam room here. [id number] [facility] ([facility]) [address] [place] [address] 05/05/2025 14:52:32 05/05/2025 16:30:15 Pain of knee region 5555719746 M25.569 Chest pain 37621436 R07. 9 819077 Recurrent. Following with cardiology . Recently started colchicine daily and it has been helpful. Chronic ki dney disease stage 5 658804392 N18.5 Z99.2 Currently on dialysis. Generalize d anxiety disorder 84732471 F41.1 72692 Unable to lay still for MRI. Will [...] 05/05/2025 1 [place] Donita Aguilar [id number] Donita Aguilar 05/05/2025 2 [place] Donita Aguilar [id number] Donita Aguilar Notes Date Note Type Note Provider Name and Address Organization Details Recorded Time 05/05/2025 text/html Generalized Anxi ety DisorderReported by Patient Joint PainReported by PatientHPIFor quality, patient reportsdull. For location, patient reportsleft knee. For severity, patient reportsno change. For duration, patient reportspresent <1 month. For timing, patient reportsconstant. NAJMA HOUSER, [facility] [address] [place], [address], [facility], Billie 05/06/2025 10:11:39 OBGyn Episode No OBEpisode recorded.
--- OUTSIDE RECORDS SUMMARY | 2025-06-13 15:27 | XMS_ITS | Clinical Summary ---
Author Organization [facility] Facility Address [address] [address] Care Team Providers Care Operating Room Surgical Technician Name Role Phone Alexis Garcia MD Primary Care Provider [phone] Encounters Date Type Department Care Team Description 06/10/2025 Orders Only [facility], [facility] [address] [place] [address] Chey Navas MD 06/08/[address] [place] [address] [facility], [facility] [address] [place] [address] Karlene Cespedes NP End stage renal disease; Dependence on renal dialysis 06/03/2025 Orders Only [facility], [facility] [address] [place] [address] Chey Navas MD 06/01/[address] [place] [address] [facility], [facility] [address] [place] [address] Karlene Cespedes NP End stage renal disease; Dependence on renal dialysis 05/27/2025 Orders Only [place] [facility], [facility] [address] [place] [address] Chey Navas MD 05/25/2025 [facility], [facility] [address] [place] [address] Melissa Wiley NP Secondary hyperaldosteronism; Protein-calorie malnutrition; End stage renal disease; Dependence on renal dialysis 05/19/2025 Orders Only [place] [facility] [employer], [facility] [address] [place] [address] Chey Navas MD 05/17/2025 [facility], [facility] [address] [place] [address] Melissa Wiley, HAYDEE End stage renal disease; Dependence on renal dialysis 05/13/2025 [facility], [facility] [address] [place] [address] Chey Navas MD 05/11/2025 Orders Only [facility], [facility] [address] [place] [address] Chey Navas MD 05/11/2025 Treatment [facility], [facility] [address] [place] [address] Chey Navas MD End stage renal disease; Dependence on renal dialysis 05/06/2025 Orders Only [facility], [facility] [address] [place] [address] Chey Navas MD 05/04/2025 Orders Only [facility] [address] [place] [address] Chey Navas MD 05/04/[address] [place] [address], [facility] [address] [place] [address] Melissa Wiley NP End stage renal disease; Dependence on renal dialysis 04/29/2025 Orders Only [facility], [facility] [address] [place] [address] Chey Navas MD 04/27/[address] [place] [address] Ne[facility]rology [facility], [facility] [address] [place] [address] Melissa Wiley NP End stage renal disease; Dependence on renal dialysis 04/22/2025 Orders Only [facility], [facility] [address] [place] [address] Chey Navas MD 04/20/[address] [place] [address], [facility] [address] [place] [address] Chey Navas MD End stage renal disease; Dependence on renal dialysis 04/15/2025 Orders Only [facility], [facility] [address] [place] [address] Chey Navas MD 04/13/2025 Orders Only [facility], [facility] [address] [place] [address] Chey Navas MD 04/13/2025 Treatment [facility], [facility] [address] [place] [address] Melissa Wiley NP End stage renal disease; Dependence on renal dialysis 04/01/2025 Orders Only [facility], [facility] [address] [place] [address] Chey Navas MD 03/30/2025 Treatment [facility], [facility] [address] [place] [address] Karlene Cespedes NP End stage renal disease; Dependence on renal dialysis 03/25/[address] [place] [address], [facility] [address] [place] [address] Melissa Wiley NP End stage renal disease; Dependence on renal dialysis 03/25/2025 Orders Only [facility], [facility] [address] [place] [address] Chey Navas MD 03/18/2025 Orders Only [facility], [facility] [address] [place] [address] Chey Navas MD 03/16/[address] [place] [address] [facility] [address] [place] [address] Chey Navas MD End stage [...] Priority Date/Time Associated Diagnosis Comments HEMOGLOBIN Routine 06/10/2025 HEMOGLOBIN Routine 06/03/2025 [facility] RESULTS Routine 05/27/2025 SPECIMEN INTEGRITY COMPROMISED [...] HEMOGLOBIN Routine 05/19/2025 HEMOGLOBIN Routine 05/13/2025 [facility] RESULTS Routine 05/11/2025 POST DIALYSIS BUN Routine 05/11/2025 BUN Routine 05/11/2025 POTASSIUM Routine 05/11/2025 [facility] RESULTS Routine 05/06/2025 HEMOGLOBIN Routine 05/06/2025 [...] 03/25/2025 HEMATOLOGY Routine 03/25/2025 HEMATOLOGY Routine 03/18/2025 from Last 3 Months Results * (ABNORMAL) Hemoglobin (06/10/2025) Only the most recent of5 resultswithin the time period is included. Hemoglobin 10.6(L) 11.7 - 14.0 g/dL [facility] 06/10/2025 06/09/2025 11: 21 AM APARTMENT HOTEL MANAGER Narrative Resulting Agency Comment Performing Organization Information: Site ID: FRANCISCO JAVIER Name: [facility] Address: [address] [place] [phone] Director: Jennifer De Jesus MD Chey Navas MD LAB BLOOD ORDERABLES Final Re sult [facility] [address] * (ABNORMAL) Iron and TIBC (05/27/2025) Only the most recent of2 resultswithin the time period is included. Iron, Total 89 40 - 190 mcg/dL [facility] TIBC 201(L) 250 - 450 mcg/dL (calc) [facility] Iron Saturation (TSat) 44 16 - 45 % (calc) [facility] 05/27/2025 05/26/2025 1:1 3 PM APARTMENT HOTEL MANAGER Narrative Resulting Agency Comment Performing Organization Information: Site ID: [place] JAVIER Name: [facility] Address: [address] [place] [phone] Director: Jennifer De Jesus MD Chey Navas MD LAB BLOOD ORDERABLES Final Re sult Performing Organization Address [facility] de [facility] Number [facility] [address] * SPECIMEN INTEGRITY COMPROMISED (05/27/2025) SPECIMEN INTEGRITY COMPROMISED [facility] Comment: Whole blood, unspun or partially spun gel barrier tube was received more than 6 hours since collection. A false elevation of K, Phos and LD as well as a false decrease in glucose may occur due to prolonged contact with red cells. 05/27/2025 05/26/2025 1:1 3 PM APARTMENT HOTEL MANAGER Narrative Resulting Agency Comment Performing Organization Information: Site ID: [id number] Name: [facility] Address: [address] [place] [phone] Director: Jennifer De Jesus MD Chey Navas MD LAB BLOOD ORDERABLES Final Re sult Performing Organization Address [facility] de [facility] Number [facility] [address] * [facility] Results (05/27/2025) Only the most recent of4 resultswithin the time period is included. eKt/V (Tattersall) 1.42 [facility] eKdrt/V 1.41 [facility] WSTDKT/V 2.5 [facility] nPCR_HD 0.63 [facility] eKt/V Gotch [facility] PCR 36.52 [facility] spKt/V Gotch 1.67 [facility] ge Center spKt/V (Daugirdas II) 1.66 [facility] eNPCR 0.59 [facility] 05/27/2025 05/27/2025 [facility] Ordering Provider LAB BLOOD ORDERABLES Final Result [facility] Contact Performing lab Unknown, [place] * Post Dialysis BUN (05/27/2025) Only the most recent of4 resultswithin the time period is included. BUN Post Dialysis 7 7 - 25 mg/dL [facility] 05/27/2025 05/26/2025 1:1 3 PM APARTMENT HOTEL MANAGER Narrative Resulting Agency Comment Performing Organization Information: Site ID: [place] Name: [facility] Address: [address] [place] [phone] Director: Jennifer De Jesus MD us Chey Navas MD LAB BLOOD ORDERABLES Final Re sult [facility] [address] [place] [address] * Differential with WBC (05/27/2025) Only the [...] [facility] 05/27/2025 05/26/2025 1:1 3 PM APARTMENT HOTEL MANAGER Narrative Resulting Agency Comment Performing Organization Information: Site ID: [place]AV[place] Name: [facility] Address: [address] [place] [phone] Director: Jennifer De Jesus MD Chey Navas MD LAB BLOOD ORDERABLES Final Re sult Performing Organization Address [facility] Co de Phone Number [facility] [address] [place] [address] * Platelet count (05/27/2025) Only the most recent of2 resultswithin the time period is included. [facility] Platelets 154 140 - 400 Thousand/uL [facility] 05/27/2025 05/26/2025 1:1 3 PM APARTMENT HOTEL MANAGER Narrative Resulting Agency Comment Performing Organization Information: Site ID: [place] Name: [facility] Address: [address] [place] [phone] Director: Jennifer De Jesus MD Chey Navas MD LAB BLOOD ORDERABLES Final Re sult Performing Organization Address [facility] de Phone Number [facility] [address] [place] [address] * (ABNORMAL) CBC (05/27/2025) Only the most recent of2 resultswithin the time period is included. [facility] WBC 6.4 3.8 - 10.8 Thousand/u L [...] [facility] 05/27/2025 05/26/2025 1:1 3 PM APARTMENT HOTEL MANAGER Narrative Resulting Agency Comment Performing Organization Information: Site ID: [place]AV[place] Name: Alona Major Address: [facility] [place] [address] Director: Jennifer De Jesus MD Chey Navas MD LAB BLOOD ORDERABLES Final Re sult Performing Organization Address [facility] Co de Phone Number [facility] [address] [facility] [place] [address] * (ABNORMAL) BUN (05/27/2025) Only the most recent of4 resultswithin the time period is included. BUN 31(H) 7 - 25 mg/dL [facility] 05/27/2025 05/26/2025 1:1 3 PM APARTMENT HOTEL MANAGER Narrative Resulting Agency Comment Performing Organization Information: Site ID: [place]AV[place] Name: Alona Major Address: [facility] [address] [facility] [place] [address] Director: Jennifer De Jesus MD Chey Navas MD LAB BLOOD ORDERABLES Final Re sult Performing Organization Address [facility] Co de Phone Number [facility] [address] [place] [address] [place] [address] * Sodium (05/27/2025) Only the most recent of2 resultswithin the time period is included. Sodium 136 135 - 146 mmol/L [facility] 05/27/2025 05/26/2025 1:1 3 PM APARTMENT HOTEL MANAGER Narrative Resulting Agency Comment Performing Organization Information: Site ID: FRANCIS[place] JAVIER Name: Alona Major Address: [facility] [place] [address] Director: Jennifer De Jesus MD us Chey Navas MD LAB BLOOD ORDERABLES Final Re sult Performing Organization Address [facility] Co de Phone Number [facility] [id number] [place] [phone] * Protein, total (05/27/2025) Only the most recent of2 resultswithin the time period is included. Total Protein 6.6 6.1 - 8.1 g/dL [facility] 05/27/2025 05/26/2025 1: 13 PM APARTMENT HOTEL MANAGER Narrative Resulting Agency Comment Performing Organization Information: Site ID: [place] JAV[place] Name: [facility] Address: [address] [place] [phone] Director: Jennifer De Jesus MD us Chey Navas MD LAB BLOOD ORDERABLES Final Re sult Performing Organization Address [facility] Co de Phone Number [facility] [address] [place] [phone] * Potassium (05/27/2025) Only the most recent of3 resultswithin the time period is included. Pathologist [facility] Potassium 4.3 3.5 - 5.3 mmol/L [facility] 05/27/2025 05/26/2025 1:1 3 PM APARTMENT HOTEL MANAGER Narrative Resulting Agency Comment Performing Organization Information: Site ID: [place] JAVIER Name: [facility] Address: [address] [place] [phone] Director: Jennifer De Jesus MD us Chey Navas MD LAB BLOOD ORDERABLES Final Re sult Performing Organization Address [facility] Co de Phone Number [facility] [address] [place] [phone] * (ABNORMAL) Phosphorus (05/27/2025) Only the most recent of2 resultswithin the time period is included. Phosphorus 5.8(H) 3.0 - 4.5 mg/dL [facility] 05/27/2025 05/26/2025 1:1 3 PM APARTMENT HOTEL MANAGER Narrative Resulting Agency Comment Performing Organization Information: Site ID: [place] Name: [facility] Address: [address] [place] [address] Director: Jennifer De Jesus MD Chey Navas MD LAB BLOOD ORDERABLES Final Re sult Performing Organization Address [facility] Co de Phone Number [facility] [employer] [facility] [address] * (ABNORMAL) Alkaline phosphatase (05/27/2025) Alkaline Phosphatase 155(H) 31 - 125 U/L [facility] 05/27/2025 05/26/2025 1:1 3 PM APARTMENT HOTEL MANAGER Narrative Resulting Agency Comment Performing Organization Information: Site ID: [place]AV[place] Name: [facility] Address: [address] [place] [phone] Director: Jennifer De Jesus MD Chey Navas MD LAB BLOOD ORDERABLES Final Re sult Performing Organization Address [facility] Co de Phone Number [facility] [employer] [facility] [address] * (ABNORMAL) PTH, Intact (05/27/2025) Only the [...] Normal High 05/27/2025 05/26/2025 1:1 3 PM APARTMENT HOTEL MANAGER Narrative Resulting Agency Comment Performing Organization Information: Site ID: [place] JAVIER Name: [employer] [facility] Address: [address] [place] [phone] Director: Jennifer De Jesus MD us Chey Navas MD LAB BLOOD ORDERABLES Final Re sult Performing Organization Address [facility] Co de Phone Number [facility] [address] [place] [address] * Magnesium (05/27/2025) Pathologist [facility] Magnesium 2.0 1.6 - 2.5 mg/dL [facility] 05/27/2025 05/26/2025 1:1 3 PM APARTMENT HOTEL MANAGER Narrative Resulting Agency Comment Performing Organization Information: Site ID: [place] JAVIER Name: [employer] [facility] Address: [address] [place] [phone] Director: Jennifer De Jesus MD us Chey Navas MD LAB BLOOD ORDERABLES Final Re sult Performing Organization Address [facility] de Phone Number [facility] [address] [place], [place] [address] [address] * (ABNORMAL) Hemoglobin A1c (05/27/2025) Hemoglobin A1C [...] for children. 05/27/2025 05/26/2025 1:1 3 PM APARTMENT HOTEL MANAGER Narrative Resulting Agency Comment Performing Organization Information: Site ID: [place]AV[place] Name: [facility] Major Address: [place] [address] Director: Jennifer De Jesus MD Chey Navas MD LAB BLOOD ORDERABLES Final Re sult Performing Organization Address [facility] de Phone Number [facility] [place] [address] * (ABNORMAL) Glucose, random (05/27/2025) Only the most recent of2 resultswithin the time period is included. Glucose 115(H) 65 - 99 mg/dL [facility] Comment: For someone without known diabetes, a glucose value between 100 and 125 mg/dL is consistent with prediabetes and should be confirmed with a follow-up test. 05/27/2025 05/26/2025 1:1 3 PM APARTMENT HOTEL MANAGER Narrative Resulting Agency Comment Performing Organization Information: Site ID: [place]IS[place] JAVIER Name: [employer] [place] Address: [address] [place] [address] Director: Jennifer De Jesus MD Chey Navas MD LAB BLOOD ORDERABLES Final Re sult Performing Organization Address [facility] de Phone Number [facility] [address] [facility] [place] [address] * (ABNORMAL) Ferritin (05/27/2025) Ferritin 1,011(H) 16 - 154 ng/mL [facility] 05/27/2025 05/26/2025 1:1 3 PM APARTMENT HOTEL MANAGER Narrative Resulting Agency Comment Performing Organization Information: Site ID: FRANCIS[place] JAVIER Name: [facility] Address: [address] [place], [place] [address]ner [facility] [place] [address] Director: Jennifer De Jesus MD us Chey E Navas MD LAB BLOOD ORDERABLES Final Re sult Performing Organization Address City/[facility]/ZIP Co de Phone Number [facility] [address] * (ABNORMAL) Creatinine, serum (05/27/2025) Only the most recent of2 resultswithin the time period is included. Creatinine 6.06(H) 0.50 - 0.97 mg/dL [facility] 05/27/2025 05/26/2025 1:1 3 PM APARTMENT HOTEL MANAGER Narrative Resulting Agency Comment Performing Organization Information: Site ID: [place]AV[place] Name: [facility] Address: [address] [place] [phone] Director: Jennifer De Jesus MD us Chey Navas MD LAB BLOOD ORDERABLES Final Re sult Performing Organization Address [facility] Co de Phone Number [facility] [address] * Chloride (05/27/2025) Only the most recent of2 resultswithin the time period is included. Chloride 98 98 - 110 mmol/L [facility] 05/27/2025 05/26/2025 1:1 3 PM APARTMENT HOTEL MANAGER Narrative Resulting Agency Comment Performing Organization Information: Site ID: [place] JAV[place] Name: [facility] Address: [address] [place] [phone] Director: Jennifer De Jesus MD us Chey Navas MD LAB BLOOD ORDERABLES Final Re sult Performing Organization Address [facility] Co de Phone Number [facility] [address] * CO2 (05/27/2025) Only the most recent of2 resultswithin the time period is included. Bicarbonate (CO2) 27 20 - 29 mmol/L [facility] 05/27/2025 05/26/2025 1:1 3 PM APARTMENT HOTEL MANAGER Narrative Resulting Agency Comment Performing Organization Information: Site ID: [place] JAVIER Name: Alona Major Address: [address] [place] [phone] Director: Jennifer De Jesus MD Chey Navas MD LAB BLOOD ORDERABLES Final Re sult Performing Organization Address [facility] Co de Phone Number [facility] [address] [place] [phone] * (ABNORMAL) Calcium (05/27/2025) Only the most recent of2 resultswithin the time period is included. Calcium 8.2(L) 8.6 - 10.0 mg/dL [facility] 05/27/2025 05/26/2025 1:1 3 PM APARTMENT HOTEL MANAGER Narrative Resulting Agency Comment Performing Organization Information: Site ID: [place] JAV[place] Name: [employer] [facility] Address: [address] [place] [phone] Director: Jennifer De Jesus MD Chey Navas MD LAB BLOOD ORDERABLES Final Re sult Performing Organization Address [facility] Co de Phone Number [facility] [address] [place] [phone] * (ABNORMAL) Albumin (05/27/2025) Only the most recent of2 resultswithin the time period is included. Albumin 3.4(L) 3.6 - 5.1 g/dL [facility] 05/27/2025 05/26/2025 1:1 3 PM APARTMENT HOTEL MANAGER Narrative Resulting Agency Comment Performing Organization Information: Site ID: [place] JAVIER Name: [facility] Address: [address] [place] [phone] Director: Jennifer De Jesus MD us Chey Navas MD LAB BLOOD ORDERABLES Final Re sult Performing Organization Address City/[facility] Co de Phone Number [facility] [address] [place] [address] * (ABNORMAL) HEMATOLOGY (04/22/2025) Only the most recent of5 resultswithin the time period is included. Pathologist [facility] Hemoglobin 9.6(L) 12.0 - 16.0 g/dL [facility] Hemoglobin x 3 28.8(L) 36.0 - 48.0 % [facility] 04/22/2025 04/23/2025 9:0 0 AM CDT Narrative [facility] - 04/23/2025 Unless otherwise specified, test(s) performed at: [facility], [address] [place], [place] [id number] ORE WASHER: Jose Luis France M.D. For any questions, please call customer service at FREQUENCY:OTHER Resulting Agency Comment Specimen source: Blood us Chey Navas MD LAB BLOOD ORDERABLES Final Re sult Performing Organization Address [facility] de Phone Number [facility] See order comments or contact performing lab Unknown, [place] * (ABNORMAL) [facility] Chemistry (04/13/2025) Only the most recent of2 resultswithin the time period is included. Pathologist [facility] PTH 561(H) 16 - 80 pg/mL [facility] 04/13/2025 04/14/2025 9:5 3 AM CDT Narrative [facility] - 04/14/2025 Unless otherwise specified, test(s) performed at: [facility], [address] [place], [place] [id number] ORE WASHER: Jose Luis France M.D. For any questions, please call customer service at FREQUENCY:OTHER Resulting Agency Comment Specimen source: Plasma us Chey Navas MD LAB BLOOD ORDERABLES Final Re sult Performing Organization Address [facility]/ZIP Co de Phone Number [facility] See order comments or contact performing lab Unknown, [place] * HD KINETICS (03/25/2025) % Urea Reduction 79 65 - 80 % [facility] 03/25/2025 03/26/2025 11: 23 AM CDT Narrative Resulting Agency Comment Specimen source: Plasma Chey Navas MD LAB BLOOD ORDERABLES Final Re sult Performing Organization Address [facility] de Phone Number [facility] See order comments or contact performing lab Unknown, [place] * (ABNORMAL) POST CHEMISTRY (03/25/2025) BUN Post Dialysis 5(L) 6 - 19 mg/dL [facility] 03/25/2025 03/26/2025 11: 23 AM CDT Narrative [facility] - 03/26/2025 Unless otherwise specified, test(s) performed at: [facility], [address] [place] [address] ORE WASHER: Jose Luis France M.D. For any questions, please call customer service at FREQUENCY:MONTHLY Resulting Agency Comment Specimen source: Plasma us Chey Navas MD LAB BLOOD ORDERABLES Final Re sult Performing Organization Address [facility] de Phone Number [facility] See order comments or contact performing lab Unknown, [place] from Last 3 Months Insurance Medicaid [place] ([id number]) Medicare Care Teams Operating Room Surgical Technician Relationship Specialty Start Date End Date Alexis Garcia MD [address] [place] [address] PCP - General Family Medicine 04/16/22
--- OUTSIDE RECORDS SUMMARY | 2025-06-13 15:27 | XMS_ITS | Encounter Summary ---
Author Organization [facility], [facility] Address [address] [place] [address] Phone Care Team Providers Care Odd Shoe Examiner Name Role Phone Alexis Garcia MD Primary Care Provider [phone] Encounter Details Date Type Department Care Team (Late st Contact Info) Description 12/29/2024 TCM in Dialysis Clinic [facility], [facility] [address] [place] [address] Yann Lozano NP [address] [place] [address] Social History Tobacco Use Types [...] 12/29/2024 The patient was seen for a gdsd-hx-wtyx visit as part of Transitional Care Management services. Attending Surgical Orderly: MACHO JOHANSEN Dialysis Location: [facility] Schedule: Shift: 2 INTERACTIVE CONTACT This qsgx-pi-zfaf visit occurred within 2 business days of the patient?s discharge. COMMENTS: Seen on HD machine during dialysis HOSPITALIZATION SUMMARY Patient transitioned from: Hospital Patient transitioned to: Home Admit Date: 12/26/2024 Discharge Date: 12/28/2024 Discharged info reviewed: No outstanding diagnostic tests and treatments Reason for admission: Admission Dx: CP Discharge Dx: Non-cardiac chest pain ESRD Atherosclerotic heart disease of [place] coronary artery with other forms of angina [...] Three times a day With Meals. [facility] Allergies Allergen: acetaminophen Reaction: Nausea/Vomiting TREATMENT [...] to follow with cardiology, pcp, pulmonology and ice cream freezer assistant as noted on discharge. EDUCATION Education relevant [...] or secondary infection VISIT DIAGNOSES CPT Code 16288 - High complexity, seen within 7 days of discharge. I20.9 Angina pectoris (HCC) COMMENTS: Verified she has nitroglycerin on hand at home: reviewed appropriate usage. Instructed to call cardiology for follow up appointment K76.0 Fatty (change of) liver, not elsewhere classified COMMENTS: Newly dx on imaging. Per hospital records, has been referred to ice cream freezer assistant. Monitor for liver dysfunction, assess for any needed support J18.9 Pneumonia, unspecified organism COMMENTS: Monitor for impaired perfusion, fever/chills, increased SOB. If symptoms present, send for CXray. 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 Left main has luminal irregularity with distal 10% stenosis. Cardiology recommended medical management. Negative for angina on assessment today Reviewed symptoms, usage of nitro: instructed to call cardiology for follow up appt. I20.091 Atherosclerosis of other coronary artery bypass graft(s) [...] on filedocumented in this encounter Care Teams Odd Shoe Examiner Relationship Specialty Start Date End Date Alexis Garcia MD [address] [place] [address] PCP - General Family Medicine 04/16/22 documented as of this encounter
--- OUTSIDE RECORDS SUMMARY | 2025-06-13 15:28 | XMS_ITS | Continuity of Care Document ---
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 Organization Details Recorded Time 06/06/20 25 plain X-ray of chest completed XIMENA KEATING [facility] 06/08/2025 14:47:06 04/28/20 25 plain X-ray of left knee region completed XIMENA KEATING [facility] 05/05/2025 15:02:31 04/22/20 25 plain X-ray of chest completed XIMENA KEATING [facility] 04/26/2025 19:04:48 04/07/20 25 plain X-ray of chest completed [facility] 04/08/2025 12:01:33 03/28/20 25 plain X-ray of chest completed [facility] 03/31/2025 11:10:09 03/21/20 25 plain X-ray of chest completed [facility] 03/31/2025 11:07:12 03/04/20 25 plain X-ray of chest completed [facility] 03/31/2025 11:09:47 12/27/[address] of chest completed [facility], LJacob[facility].C. 12/27/2024 14:20:38 12/26/19 25 plain X-ray of chest completed [facility] 12/27/2024 14:13:55 11/11/19 25 plain X-ray of cervical spine completed [facility] 11/11/2024 12:44:02 10/01/19 25 angiography completed [facility] 10/01/2024 18:38:18 09/27/19 25 plain X-ray of chest completed [facility] 09/27/2024 18:18:09 09/27/19 25 echocardiography completed [facility] 10/01/2024 18:33:00 09/22/19 25 ultrasonography of right breast completed [facility], L[facility]C. 09/21/2024 13:39:24 09/22/19 25 mammography completed [facility], L[facility]oL.C. 09/21/2024 13:40:36 09/11/[address] of abdomen completed [facility], LJacoboLJacoboCJacobo 09/13/2024 14:56:32 09/10/19 25 angiography of coronary artery completed [facility], KaelynCJacobo 09/13/2024 14:50:21 09/09/19 25 echocardiography completed [facility], KaelynCJacobo 09/13/2024 14:54:55 09/08/19 25 plain X-ray of chest completed [facility], KaelynCJacobo 09/13/2024 14:57:51 08/24/[address] of chest completed [facility], Billie 08/24/2024 12:28:02 04/28/20 24 plain X-ray of chest completed [facility], [place] 04/30/2024 11:08:42 03/31/20 24 plain X-ray of chest completed [facility], [place] 04/01/2024 14:05:05 03/27/20 24 imaging guided percutaneous transluminal angioplasty of coronary artery with contrast completed [facility], [place] 10/05/2024 10:23:19 02/28/20 24 radiographic procedure on chest and/or abdomen completed [facility], KaelynCJacobo 03/04/2024 15:02:31 02/28/[address] of abdomen completed [facility], DonteLJacoboCJacobo 03/04/2024 15:03:26 01/19/20 24 diagnostic radiography of abdomen completed [facility], Billie 01/21/2024 17:26:25 01/06/20 24 plain X-ray of chest completed [facility], KaelynCJacobo 01/07/2024 15:42:42 12/27/19 24 plain X-ray of chest completed [facility], [place] 12/29/2023 23:23:06 12/27/19 24 CT of chest, abdomen and pelvis completed [facility], [place] 12/29/2023 23:32:58 12/24/19 24 plain X-ray of chest completed [facility], [place] 12/29/2023 23:56:29 12/20/[address] of chest completed [facility], [place] 12/21/2023 12:33:52 12/20/19 24 plain X-ray of chest completed [facility], [place] 12/21/2023 12:34:44 12/09/19 24 plain X-ray of chest completed [facility], [place] 12/12/2023 10:16:37 12/05/19 24 plain X-ray of chest completed [facility], [place] 12/06/2023 13:24:46 11/28/19 24 cardiac catheterization completed [facility], [place]ie 12/06/2023 13:11:07 11/28/19 24 imaging guided percutaneous transluminal angioplasty of coronary artery with contrast completed [facility], [place] 10/05/2024 10:22:55 11/27/19 24 plain X-ray of chest completed [facility], KaelynCJacobo 11/28/2023 10:19:35 10/24/19 24 imaging guided percutaneous transluminal angioplasty of coronary artery with contrast completed [facility], [place] 10/05/2024 10:22:32 10/16/19 24 imaging guided percutaneous transluminal angioplasty of coronary artery with contrast completed [facility], [place] 10/05/2024 10:22:12 10/07/19 24 plain X-ray of chest completed [facility]obo 10/08/2023 17:52:40 09/20/19 24 echocardiography completed XIMENA KEATING [facility], LJacoboL.CJacobo 09/26/2023 12:48:56 lobectomy of lung completed XIMENA KEATING [facility], LJacoboL.CJacobo 10/10/2023 12:32:47 amputation completed XIMENA KEATING [facility], LJacoboLJacoboCJacobo 08/24/2024 12:24:04 cholecystectomy completed XIMENA KEATING [facility]obo 09/13/2024 14:49:22 Imaging Results None recorded. Procedure Notes None recorded. Medical Equipment None Reported. Allergies Allergen ID Allergen Name Allergen Category Reaction Reaction Severity Criticality Documentation Date Start Date Code Code System Note Provider Name and Address Organization Details Recorded Time 54230 acetamino phen medicatio n abdominal pain moderate low 01/19/20232021 161 RxNorm GI upset /into leran ce Anh coles [facility] 4 07:57:42 86951 acetamino phen medicatio n Not available Not available Not available 02/21/20242023 161 RxNorm ELIZABETH HOUSER, [address], [address] , [facility] 5 15:59:31 16430 ranolazin e medicatio n Not available Not available Not available 04/14/2025 49713 RxNorm Hallu cinat [facility] 5 11:33:58 Medications Name Sig [...] wanted her to decrease to 100mg TID [facility] [place], 02/27 and 02/28 Not Available Not Available [...] times per day 10/09 completed VO CH/jl; 60285; Recorded 05/14/20 19 10:02AM by Leydi Jessica [...] Last Updated DateTime 152.4 cm 27.7 kg/m2 79605.1 2 g 98 % 78 /min 18 /min 158/82 mm[Hg] XIMENA KEATING [facility] 11:21:53 Social History Question Answer Notes LastModified by Organizat ion Details LastModified Time Tobacco Smoking Status Former Smoker Quit 07/2023 XIMENA KEATING [facility] 12/24/2023 12:30:16 What Type Of Diet Are You Following? REGULAR [email or web address] Information not available 12/24/2023 Which Illicit Or Recreational Drugs Have You Used? Smokes Meth [email or web address] Information not available 10/10/2023 When Did You Quit Smoking? 1-5yearssin celastcigar ette Information not available 12/24/2023 What Was The Date Of Your Most Recent Tobacco Screening? 12/24/2023 Information not available 12/24/2023 What Is Your Current Pack Years? 20-29packye ars Information not available 12/24/2023 What Is Your Relationship Status? Single [email or web address] Information not available 12/24/2023 At What Age [...] or recreational drugs? Yes Quit Meth 07/2023 [email or web address] Information not available 12/24/2023 Do you or have you ever used any other forms of tobacco or nicotine? No Information not available 12/24/2023 What is your level of alcohol consumption? None Information not available 10/10/2023 Are you currently employed? No disabled [email or web address] Information not available 10/10/2023 Are you able to walk independently without assistance or assistive devices? YESASSIST [email or web address] Information not available 10/10/2023 Are you able to care for yourself independently? No Mother is her caregiver. [email or web address] Information not available 10/10/2023 Do you or have you ever used any nicotine-free cigarettes, vape, or chewing tobacco? No Information not available 12/24/2023 Mental Status None recorded. Family History Relationship Description Onset Age of this Age Resolved Age Notes LastModified by Organization Details LastModified Time Mother Myocardial infarction In her 50's [email or web address] Not available 12/29/2023 23:44:26 Mother Rheumatoid arthritis [email or web address] Not available 12/28 23:44:44 Brother Acute lymphoid leukemia [email or web address] Not available 10/18 18:24:23 Medical History Condition [...] pneumococcal polysaccharide PPV23 8 completed ELIZABETH HOUSER, [address] [place], [address], 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 Chronic renal failure 90 823925 N18.5 27878129 Dialysis. Hyperkalemia 38379094 E8 7.5 9805 Labs checked yesterday at Dialysis. Atypical chest pain 1025 40377 R07.89 253284 Recurrent. Following with cardiology . Recently started Isosorbide . History of abnormal cervical Papanicolaou smear 000219308 Z87.42 [id number] SUZANNE HEATON [facility] ([facility]) [address] [place] [address] 03/31/2025 10:56:17 03/31/2025 12:04:26 Chronic chest pain 5054017370 69660 R07.9 G89.29 394497 Spasm 72270947 M62.838 Pain in bi lateral legs 9243564213 0294521 M79.604 M79.605 Site-speci fic infective disorders of skin 809394087 L08.9 26621 right index finger Chronic pain syndrome 37 8600393 G89.4 82049 Gabapentin . Health Concerns Section Related Observation LastModified by Organization Detai ls LastModified Time None Recorded Concern Status LastModified by Organization Details LastModified Time None Recorded Payers Encounter Date Sequence Insurance Name Policy Number Policy Varela Covered Member ID Varela Member ID Guarantor Name 03/31/2025 1 [place] Donita Aguilar [id number] Donita Aguilar 03/31/2025 2 [place] Donita Aguilar [id number] Donita Aguilar Notes Date Note Type Note Provider Name and Address Organization Details Recorded Time 5 text/html Angina/Chest PainReported by PatientHPIFor quality, patient reportsheaviness. For context, patient reportsat rest. For severity, patient reportsmoderate. For onset/timing, patient reportshas noted for yearsandintermittent. For alleviating factors, patient reportsnitroglycerinandre st. ELIZABETH CORRINA, [facility] [address] [place], [address], [facility], [place] 03/31/2025 17:08:26 OBGyn Episode No OBEpisode recorded.
--- OUTSIDE RECORDS SUMMARY | 2025-06-13 15:28 | XMS_ITS | Clinical Summary ---
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 Gender Identity Not on file Sexual [...] Required) Completed Medical Devices Implanted Type Area Arch Support Technician Device Identifier Shelf Expiration Date Model / Serial / Lot Max dailym Flour [id number] - [id number] Implanted:Qty: 2 on 12/17/2016 by Deandre Alan MD at [facility] Biological Left: Lung [employer] 09/19/2019 [id number] / / [id number] Control Implant Funmi Procedures Procedure Name Priority Date/Time Associated Diagnosis Comments HEMOGLOBIN A1C Routine 01/09/2017 2:52 AM CDT from Last 3 Months or Most Recently Relevant to Health Maintenance Results * (ABNORMAL) HEMOGLOBIN A1C (01/09/2017 2:52 AM CDT) HEMOGLOBIN A1C 8.9(H) 4.0 - 6.0 % 01/09/2017 1:31 PM CDT [facility] EST. AVG GLUCOSE, A1C 209 mg/dL 01/09/2017 1:31 PM CDT [facility] Blood 01/09/2017 2:52 AM CDT 01/09/2017 6:53 AM CDT Narrative [facility] - 01/09/2017 1:31 PM CDT Test performed on [employer]stler[employer] instrumentation using HPLC methodology us Izabela Diamond MD CHEMISTRY ORDERABLES Final Res ult [facility] CLIA# [id number] [address] [place] [address] from Last 3 Months or Most Recently Relevant to Health [place] [address] [facility] MEDICAID Advance Directives For more information, please contact: [phone] * Full Code (Latest Code Status on File) Date Activated Date Inactivated Comments 12/17/2016 1:05 PM 12/27/2016 11:32 PM Care Teams Catia Designer Relationship Specialty Start Date End Date Shravan Jones DO PCP - General Family Practice 12/04/16
--- OUTSIDE RECORDS SUMMARY | 2025-06-13 15:28 | XMS_ITS | Continuity of Care Document ---
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 14:05:05 03/27/20 24 imaging guided percutaneous transluminal angioplasty of coronary artery with contrast completed [facility], LJacoboLJacoboCJacobo 10/05/2024 10:23:19 02/28/20 24 radiographic procedure on chest and/or abdomen completed [facility], LJacoboLJacoboCJacobo 03/04/2024 15:02:31 02/28/[address] of abdomen completed [facility], LJacoboL.CJacobo 03/04/2024 15:03:26 01/19/20 24 diagnostic radiography of abdomen completed [facility], LJacoboLJacoboCJacobo 01/21/2024 17:26:25 01/06/20 24 plain X-ray of chest completed [facility] 01/07/2024 15:42:42 12/27/19 24 plain X-ray of chest completed [facility] 12/29/2023 23:23:06 12/27/19 24 CT of chest, abdomen and pelvis completed [facility], L.L.CJacobo 12/29/2023 23:32:58 12/24/19 24 plain X-ray of chest completed [facility], LJacoboL.CJacobo 12/29/2023 23:56:29 12/20/[address] of chest completed [facility], L.L.CJacobo 12/21/2023 12:33:52 12/20/19 24 plain X-ray of chest completed [facility], L.L.CJacobo 12/21/2023 12:34:44 12/09/19 24 plain X-ray of chest completed [facility], L.L.CJacobo 12/12/2023 10:16:37 12/05/19 24 plain X-ray of chest completed [facility] 12/06/2023 13:24:46 11/28/19 24 cardiac catheterization completed [facility] 12/06/2023 13:11:07 11/28/19 24 imaging guided percutaneous transluminal angioplasty of coronary artery with contrast completed [facility], L.L.CJacobo 10/05/2024 10:22:55 11/27/19 24 plain X-ray of chest completed [facility] 11/28/2023 10:19:35 10/24/19 24 imaging guided percutaneous transluminal angioplasty of coronary artery with contrast completed [facility], L.L.CJacobo 10/05/2024 10:22:32 10/16/19 24 imaging guided percutaneous transluminal angioplasty of coronary artery with contrast [facility] Ka[facility] 10/05/2024 10:22:12 10/07/19 24 plain X-ray of chest completed XIMENA RISHABH [facility], KaelynCJacobo 10/08/2023 17:52:40 09/20/19 24 echocardiography completed XIMENA RISHABH [facility], DonteLJacoboCJacobo 09/26/2023 12:48:56 lobectomy of lung completed XIMENAMAHI KEATING [facility], [place] 10/10/2023 12:32:47 amputation completed XIMENA KEATING [facility], KaelynCJacobo 08/24/2024 12:24:04 cholecystectomy completed XIMENA RISHABH [facility], KaelynCJacobo 09/13/2024 14:49:22 Imaging Results None recorded. Procedure Notes None recorded. Medical Equipment None Reported. Allergies Allergen ID Allergen Name Allergen Category Reaction Reaction Severity Criticality Documentation Date Start Date Code Code System Note Provider Name and Address Organization Details Recorded Time 63947 acetamino phen medicatio n abdominal pain moderate low 01/19/20232021 161 RxNorm GI upset /into leran ce Anh coles [facility], LJacoboLJacoboCJacobo 4 07:57:42 06436 acetamino phen medicatio n Not available Not available Not available 02/21/20242023 161 RxNorm NAJMA HOUSER, [facility] [address] [place], [address] , [facility], LJacoboLJacoboCJacobo 5 15:59:31 68172 ranolazin e medicatio n Not available Not available Not available 04/14/2025 72465 RxNorm [facility]at [facility] 5 11:33:58 Medications Name Sig [...] wanted her to decrease to 100mg [facility], 02/27 and 02/28 Not Available Not Available [...] times per day 10/09 completed VO CH/jl; 62825; Recorded 05/14/20 19 10:02AM by Leydi Jessica [...] Last Updated DateTime 152.4 cm 27.7 kg/m2 98711.1 2 g 99 % 88 /min 18 /min 166/108 mm[Hg] 158/98 mm[Hg] XIMENA KEATING [facility] 11:38:18 Social History Question Answer Notes LastModified by Organizat ion Details LastModified Time Tobacco Smoking Status Former Smoker Quit 07/2023 XIMENA KEATING [facility] 12/24/2023 12:30:16 What Type Of Diet Are You Following? REGULAR [email or web address] Information not available 12/24/2023 Which Illicit Or Recreational Drugs Have You Used? Smokes Meth [email or web address] Information not available 10/10/2023 When Did You Quit Smoking? 1-5yearssin celastcigar ette Information not available 12/24/2023 What Was The Date Of Your Most Recent Tobacco Screening? 12/24/2023 Information not available 12/24/2023 What Is Your Current Pack Years? 20-29packye ars Information not available 12/24/2023 What Is Your Relationship Status? Single [email or web address] Information not available 12/24/2023 At What Age [...] or recreational drugs? Yes Quit Meth 07/2023 [email or web address] Information not available 12/24/2023 Do you or have you ever used any other forms of tobacco or nicotine? No Information not available 12/24/2023 What is your level of alcohol consumption? None [email or web address] Information not available 10/10/2023 Are you currently employed? No disabled [email or web address] Information not available 10/10/2023 Are you able to walk independently without assistance or assistive devices? YESASSIST [email or web address] Information not available 10/10/2023 Are you able to care for yourself independently? No Mother is her caregiver. 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 ([facility]) [address] [place] [address] 03/31/2025 10:56:17 03/31/2025 12:04:26 Chronic chest pain 3127800609 71407 R07.9 G89.29 607448 Spasm 32957788 M62.838 Pain in bi lateral legs 9625874522 0694936 M79.604 M79.605 Site-speci fic infective disorders of skin 901781556 L08.9 25629 right index finger Chronic pain syndrome 37 0300375 G89.4 54675 Gabapentin . [id number] SUZANNE HEATON [facility] ([facility]) [address] [place] [address] 04/14/2025 11:22:24 04/14/2025 14:24:51 Chronic chest pain 5021795805 37121 R07.9 G89.29 450615 Essential hypertension 80913658 I10 14452 Took her blood pressure medication about an hour ago. Pressure at home has been pretty good. Type 1 mainor betes mellitus 85690478 E10.[address] Ortega. Will schedule pump training with patient on a [facility]. Will have clinic office manager set up a time where she can use an exam room here. Health Concerns Section Related Observation LastModified by Organization Detai ls LastModified Time None Recorded Concern Status LastModified by Organization Details LastModified Time None Recorded Payers Encounter Date Sequence Insurance Name Policy Number Policy Varela Covered Member ID Varela Member ID Guarantor Name 04/14/2025 1 [place] Donita Aguilar [id number] Donita Aguilar 04/14/2025 2 [place] Donita Aguilar [id number] Donita Aguilar Notes Date Note Type Note [...] patient reportshistory of pulmonary disease. NAJMA HOUSER, [address], [address], [facility], [place]ie 04/14/2025 14:09:54 OBGyn Episode No OBEpisode recorded.
--- OUTSIDE RECORDS SUMMARY | 2025-06-13 15:28 | XMS_ITS | Encounter Summary ---
Author Organization [facility] Address [address] [place] [address] Care Team Providers Care Clinical Dental Technician Name Role Phone Shravan Jones DO Primary Care Provider [phone] Encounter Details Date Type Department Care Team (Latest Contact Info) Description 05/14/2003 Outpatient [facility] Oral and Maxillo Surgery[address] [address] Jimmy Tineo, CLIVES NO ADDRESS ON FILE UNSPEC DENTAL CARIES (Primary Dx); TOOTH POSITION ANOMALY Social History Tobacco Use Types Packs/Day Years Used Date Smoking Tobacco: Never Assessed Comments Unknown Sex and Gender Information Value Date Recorded Sex Assigned at Not on file Legal Sex Female 4:38 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
--- OUTSIDE RECORDS SUMMARY | 2025-06-13 15:28 | XMS_ITS | Data Portability ---
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 XIMENA coles [facility] 4 13:10:14 Stented artery 033504880 Active 2023 XIMENA coles [facility] 4 13:11:26 End-stag e renal disease 16065240 Active 2023 ELIZABETH HOUSER, [address], [address], [facility] 5 15:59:15 Recurren t urinary tract infectio n 146520423 Active 2023 XIMENA coles [facility]obo 4 12:26:12 Chiari malforma tion 443043194 Active 2023 XIMENA coles [facility] 4 12:26:50 Steatoti c liver disease 117101366 Active 2023 XIMENA coles [facility]obo 4 12:27:02 Anemia 465767343 Active 2023 ELIZABETH HOUSER, [facility] [address] [place], [address], [facility]CJacobo 5 11:47:10 Female pelvic inflamma tory disease 349921451 Active 2023 XIMENA coles [facility]obo 4 12:28:16 Mixed anxiety and depressi ve disorder 406927213 Active 2023 XIMENA coles [facility] 4 12:28:28 Pancreat itis 01511707 Active 2023 XIMENA coles [facility] 4 12:28:40 Diabetic ketoacid osis 463538313 Active 2023 recurren t XIMENA coles [facility]obo 4 12:28:57 Migraine 32969375 Active 2023 ELIZABETH HOUSER, [facility] [address] [place], [address], [facility] 5 15:59:15 Cardiome enoch 1206839 Active 2023 XIMENA coles [facility]L.C[facility]obo 4 12:30:17 Edema 132745285 Active 2023 [facility] 4 23:45:39 Edema due to fluid overload 324998804 Active 2023 XIMENA coles [facility] [place] 4 23:45:54 End stage renal failure on dialysis 489657790 Active 2023 ELIZABETH HOUSER, [facility] [address] [place], [address], [facility], [place] 5 15:59:15 Esophagi tis 32405965 Active 2024 [facility] coles [facility] 5 18:23:17 Chronic pain 16071684 Active 2024 Davian Ren MD [address] [place], [address], [facility] 5 09:12:38 Generali zed anxiety disorder 09178237 Active 2024 ELIZABETH HOUSER, [facility] [address] [place], [address], [facility] 5 16:12:14 Notes:Some problems listed i n Documents: #[id number], #[id number], #[id number], #[id number] could not be added to this patient's chart. Please review these documents and add these problems to the patient's chart manually as needed. Problem Notes None recorded. Procedures Surgical History Date Name Laterality Status Provider Name and Address Organization Details Recorded Time 06/06/20 25 plain X-ray of chest completed XIMENA KEATING [facility] [place] 06/08/2025 14:47:06 04/28/20 25 plain X-[facility] of left [facility]05[facility]25 15:02:31 04/22/20 25 plain X-ray of chest completed XIMENA KEATING [facility] 04/26/2025 19:04:48 04/07/20 25 plain X-ray of chest completed [facility] 04/08/2025 12:01:33 03/28/20 25 plain X-ray of chest completed [facility] 03/31/2025 11:10:09 03/21/20 25 plain X-ray of chest completed [facility] 03/31/2025 11:07:12 03/04/20 25 plain X-ray of chest completed [facility] 03/31/2025 11:09:47 12/27/[address] of chest completed [facility] 12/27/2024 14:20:38 12/26/19 25 plain X-ray of chest completed [facility] 12/27/2024 14:13:55 11/11/19 25 plain X-ray of cervical spine completed [facility] 11/11/2024 12:44:02 10/01/19 25 angiography completed [facility] 10/01/2024 18:38:18 09/27/19 25 plain X-ray of chest completed [facility] 09/27/2024 18:18:09 09/27/19 25 echocardiography completed [facility] 10/01/2024 18:33:00 09/22/19 25 ultrasonography of right breast completed [facility] 09/21/2024 13:39:24 09/22/19 25 mammography completed [facility] LJacoboL[facility]oboC. 09/21/2024 13:40:36 09/11/[address] 25 [address] of abdomen completed [facility] 09/13/2024 14:56:32 09/10/19 25 angiography of coronary artery completed [facility] 09/13/2024 14:50:21 09/09/19 25 echocardiography completed [facility] 09/13/2024 14:54:55 09/08/19 25 plain X-ray of chest completed [facility] 09/13/2024 14:57:51 08/24/[address] of chest completed [facility] 08/24/2024 12:28:02 04/28/20 24 plain X-ray of chest completed [facility] 04/30/2024 11:08:42 03/31/20 24 plain X-ray of chest completed [facility] 04/01/2024 14:05:05 03/27/20 24 imaging guided percutaneous transluminal angioplasty of coronary artery with contrast completed [facility] 10/05/2024 10:23:19 02/28/20 24 radiographic procedure on chest and/or abdomen completed [facility] 03/04/2024 15:02:31 02/28/[address] of abdomen completed [facility] 03/04/2024 15:03:26 01/19/20 24 diagnostic radiography of abdomen completed [facility] 01/21/2024 17:26:25 01/06/20 24 plain X-ray of chest completed [facility] 01/07/2024 15:42:42 12/27/19 24 plain X-ray of chest completed [facility] 12/29/2023 23:23:06 12/27/19 24 CT of chest, abdomen and pelvis completed [facility] 12/29/2023 23:32:58 12/24/19 24 plain X-ray of chest completed [facility] 12/29/2023 23:56:29 12/20/[address] of chest completed [facility] 12/21/2023 12:33:52 12/20/19 24 plain X-ray of chest completed [facility] 12/21/2023 12:34:44 12/09/19 24 plain X-ray of chest completed [facility] 12/12/2023 10:16:37 12/05/19 24 plain X-ray of chest completed [facility] 12/06/2023 13:24:46 11/28/19 24 cardiac catheterization completed [facility] 12/06/2023 13:11:07 11/28/19 24 imaging guided percutaneous transluminal angioplasty of coronary artery with contrast completed [facility] 10/05/2024 10:22:55 11/27/19 24 plain X-ray of chest completed [facility] 11/28/2023 10:19:35 10/24/19 24 imaging guided percutaneous transluminal angioplasty of coronary artery with contrast completed [facility] 10/05/2024 10:22:32 10/16/19 24 imaging guided percutaneous transluminal angioplasty of coronary artery with contrast completed [facility] 10/05/2024 10:22:12 10/07/19 24 plain X-ray of chest completed XIMENA RISHABH [facility] [place] 10/08/2023 17:52:40 09/20/19 24 echocardiography completed XIMENAMAHI KEATING [facility] [place] 09/26/2023 12:48:56 lobectomy of lung completed XIMENA KEATING [facility] [place] 10/10/2023 12:32:47 amputation completed XIMENA KEATING [facility] [place] 08/24/2024 12:24:04 cholecystectomy completed XIMENAMAHI KEATING [facility] [place] 09/13/2024 14:49:22 Imaging Results None recorded. Procedure Notes None recorded. Medical Equipment None Reported. Allergies Allergen ID Allergen Name Allergen Category Reaction Reaction Severity Criticality Documentation Date Start Date Code Code System Note Provider Name and Address Organization Details Recorded Time 00796 acetamino phen medicatio n abdominal pain moderate low 01/19/20232021 161 RxNorm GI upset /into leran ce Anh coles [facility], LJacoboLJacoboCJacoob 4 07:57:42 60791 acetamino phen medicatio n Not available Not available Not available 02/21/20242023 161 RxNorm ELIZABETH HOUSER, [address], [address] [place] [address], LJacoboLJacoboCJacobo 5 15:59:31 91123 ranolazin e medicatio n Not available Not available Not available 04/14/2025 18805 RxNorm [facility] 5 11:33:58 Medications Name [...] wanted her to decrease to 100mg TID [facility], 02/27 and 02/28 Not Available Not Available [...] times per day 10/09 completed VO CH/jl; 32210; Recorded 05/14/20 19 10:02AM by Leydi Jessica [...] Updated DateTime 5 152.4 cm 26.8 kg/m2 05956.1 5 g 97 % 72 /min 18 /min 98 [degF] 120/70 mm[Hg] BRANDON RIVERA [facility] 5 12:37:22 Date Recorded Body height Body mass index (BMI) Body weight Oxygen saturation Heart rate Respiratory rate Systolic And Diastolic Provider Name and Address Organization Details Last Updated DateTime 5 152.4 cm 27.7 kg/m2 83045.1 2 g 98 % 78 /min 18 /min 158/82 mm[Hg] XIMENA [facility] 5 11:21:53 Date Recorded Body height Body mass index (BMI) Body weight Oxygen saturation Heart rate Respiratory rate Systolic And Diastolic Systolic And Diastolic Provider Name and Address Organization Details Last Updated DateTime 5 152.4 cm 27.7 kg/m2 13559.1 2 g 99 % 88 /min 18 /min 166/108 mm[Hg] 158/98 mm[Hg] XIMENA [facility] 5 11:38:18 Date Recorded Body height Body mass index (BMI) Body weight Oxygen saturation Heart rate Respiratory rate Systolic And Diastolic Provider Name and Address Organization Details Last Updated DateTime 5 152.4 cm 27.7 kg/m2 11503.1 2 g 98 % 80 /min 18 /min 136/80 mm[Hg] XIMENA RISHABH [facility] 5 15:40:44 Date Recorded Body height Body mass index (BMI) Body weight Oxygen saturation Heart rate Respiratory rate Systolic And Diastolic Systolic And Diastolic Provider Name and Address Organization Details Last Updated DateTime 5 152.4 cm 27.3 kg/m2 08436.9 3 g 97 % 88 /min 20 /min 174/100 mm[Hg] 170/90 mm[Hg] XIMENA RISHABH [facility] 5 15:22:55 Social History Question Answer Notes LastModified by [employer] Details LastModified Time Tobacco Smoking Status Former Smoker Quit 07/2023 XIMENA KEATING [facility] 12/24/2023 12:30:16 What Type Of Diet Are You Following? REGULAR [email or web address] Information not available 12/24/2023 Which Illicit Or Recreational Drugs Have You Used? Smokes Meth Information not available 10/10/2023 When Did You Quit Smoking? 1-5yearssin celastcigar ette Information not available 12/24/2023 What Was The Date Of Your Most Recent Tobacco Screening? 12/24/2023 Information not available 12/24/2023 What Is Your Current Pack Years? 20-29packye ars Information not available 12/24/2023 What Is Your Relationship Status? Single [email or web address] Information not available 12/24/2023 At What Age Did You Start Smoking Tobacco? 19 Information not available 12/24/2023 How Much Tobacco Do You Smoke? No Information not available 12/24/2023 How Many Years Have You Smoked Tobacco? 20 Information not available 12/24/2023 Sex: Unknown Functional Status Question Answer Note LastModified by [employer] Details LastModified Time Do you use any illicit or recreational drugs? Yes Quit Meth 07/2023 [email or web address] Information not available 12/24/2023 Do you or have you ever used any other forms of tobacco or nicotine? No Information not available 12/24/2023 What is your level of alcohol consumption? None [email or web address] Information not available 10/10/2023 Are you currently employed? No disabled [email or web address] Information not available 10/10/2023 Are you able to walk independently without assistance or assistive devices? YESASSIST [email or web address] Information not available 10/10/2023 Are you able to care for yourself independently? No Mother is her caregiver. [email or web address] Information not available 10/10/2023 Do you or have you ever used any nicotine-free cigarettes, vape, or chewing tobacco? No Information not available 12/24/2023 Mental Status None recorded. Family History Relationship Description Onset Age of this Age Resolved Age Notes LastModified by Organization Details LastModified Time Mother Myocardial infarction In her 50's [email or web address] Not available 12/29/2023 23:44:26 Mother Rheumatoid arthritis [email or web address] Not available 12/28 23:44:44 Brother Acute lymphoid leukemia [email or web address] Not available 10/18 18:24:23 Medical History Condition [...] polysaccharide PPV23 8 completed SUZANNE HEATON [address] [place], [address], [facility], [place] 12/24/2023 12:51:09 Past Encounters Encounter ID Performer Location Encounter Start Date Encounter Closed Date Diagnosis/Indication Diagnosis SNOMED-CT Code Diagnosis ICD10 Code Diagnosis IMO Codes Diagnosis Note [id number] SUZANNE HEATON [facility] [address] [place] [address] 10/10/2023 11:29:12 10/10/2023 13:24:32 Uncontrolled type 1 diabetes mellitus 815721317 E10.[address] Ortega. End stage renal failure on dialysis 450769512 Z99.2 MWF dialysis. Multi vess el coronary artery disease 352563909 I25.10 Following with cardiology in [facility] Essential hypertension 96941733 I10 Coronary arteriosclerosis 75049540 I25.10 Follows with cardiology in [facility]. [id number] Matthew Packer DO [facility] ([facility]) [address] [place] [address] 90657-624 5 12/02/2023 12:01:39 12/02/2023 13:56:02 Dental abscess 760404425 K04.7 Will start patient on lower dose amoxicilli n due to her hemodialys is status. Counseled patient that it is imperative that she see and be evaluated by a dentist in the next 2 to 4 weeks. [id number] SUZANNE HEATON [facility] ([facility]) [address] [place] [address] 26196-602 5 12/24/2023 11:37:48 12/24/2023 14:35:44 Mixed anxiety and depressive disorder 066928623 F41.8 Essential hypertension 81498951 I10 Starting Nifedipine today. Type 1 mainor betes mellitus 17283106 E10.[address] Ortega. Pain in bi lateral legs 6292552032 1467982 M79.604 M79.605 Patient reports she took some of her mom's in the past and it was helpful. End stage renal failure on dialysis 806856461 Z99.2 MWF dialysis. [id number] SUZANNE HEATON [facility] ([facility]) [address] [place] [address] 33783-404 5 01/07/2024 15:11:38 01/07/2024 17:49:26 Edema 553262141 R60.9 Non-pittin g lower extremity. Chest pain 31072682 R07. 9 Recurrent. Following with cardiology . Blood pres sure outside reference range 82642238 Z01.31 Will half dose of nifedipine until she is seen with cardiology . [id number] SUZANNE HEATON [facility] ([facility]) [address] [place] [address] 27132-787 5 02/21/2024 11:42:22 02/21/2024 12:51:01 End-stage renal disease 38056417 N18.6 Continue dialysis. Essential hypertension 15667575 I10 Blood pressure good today. Continue current meds. Uncontroll ed type 1 diabetes mellitus 739373317 E10.65 Continue to follow with Dr. Ortega. Mixed anxi ety and depressive disorder 894501088 F41.8 [id number] [facility] [address] [place] [address] 65782-940 5 04/01/2024 13:47:35 04/01/2024 15:21:12 Essential hypertension 68434215 I10 Monitor at home. Follow-up with cardiology . Uncontroll ed type 1 diabetes mellitus 635811728 E10.65 Continue to follow with Dr. Ortega. [facility] ion care management 445389297 Z30.9 Has a Nexplanon in her left arm, has not been changed for 12 years per patient Chronic low back pain 27 4899962 M54.50 Would like to see about prescripti on for Tramadol. 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 Congestive heart failure 30703665 I50.9 Follows with Cardiology . Chronic ob structive pulmonary disease 85498642 J44.9 Uses Breo. Secondary hyperaldosteronism 93201433 E26.1 Currently on dialysis. Angina pectoris 43272466 0 I20.9 Follows with cardiology , has nitrostat, recent stent. Amputated toe 918907314 Z89.429 Follows with podiatry. Chronic re current major depressive disorder 3423025 F33.1 Continue Lexapro. [id number] SUZANNE HEATON [facility] ([facility]) [address] [place] [address] 17080-016 5 05/01/2024 11:41:02 05/01/2024 13:20:39 Chronic chest pain 5953166844 73663 R07.9 Encouraged her mother to contact cardiology for follow-up. Essential hypertension 82406322 I10 Monitor at home. Restart Coreg. Abnormal vision 8977837 H54.7 [id number] SUZANNE HEATON [facility] ([facility]) [address] [place] [address] 06130-899 5 07/01/2024 13:56:52 07/01/2024 15:11:16 Essential hypertension 42100097 I10 Blood pressure this am was 125/80. Type 1 mainor betes mellitus 94787130 E10.[address] Ortega. Mixed anxi ety and depressive disorder 161476922 F41.8 Swelling of lower leg 44 1725922 R22.40 Hypoxemic respiratory failure 8110524337 0894655 J96.91 Uses oxygen at home as needed. 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 Depressive disorder 3548 9007 F33.1 Continue escitalopr am. 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 Congestive heart failure 46421866 I50.9 I50.30 Follows with Cardiology . Chronic ki dney disease stage 5 235920048 N18.5 Z99.2 Currently on dialysis. Amputated toe 440635545 Z89.429 Follows with podiatry. Low back pain 162251352 M54.50 Gabapentin . Hypertensi ve heart and renal disease with (congestive) heart failure 484071190 I13.2 Follows with Cardiology . Chronic ob structive pulmonary disease 54598922 J44.9 Uses Breo. Chronic ki dney disease due to type 2 diabetes mellitus 3962041836 08 N18.6 Currently on dialysis. 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 Anemia 501574166 D64.9 Acute supp urative otitis media without spontaneous rupture of ear drum 05902902 H66.001 Pain in bi lateral legs 3129245242 1294726 M79.604 M79.605 She has been taking 100mg three times daily but feels like it needs to be increased. [id number] SUZANNE HEATON [facility] ([facility]) [address] [place] [address] 16788-511 5 10/05/2024 10:02:53 10/05/2024 11:11:59 Coronary atherosclerosis 358175074 I25.10 She has 8 stents now. Mixed anxi ety and depressive disorder 157184376 F41.8 She has been having vivid dreams lately revolving around her brother who recently as well as her daughter who . Hospital i npatient stay within past 30 days 9690458117 106 Z76.89 [id number] ELIZABETH HOUSER [facility] ([facility]) [address] [place] [address] 81255-291 5 11/27/2024 09:57:25 11/27/2024 10:57:38 Essential hypertension 77089441 I10 Blood pressure this am was 179/112 at home, in office is 150/80. Afternoon readings have been good. Type 1 mainor betes mellitus 60059434 E10.[address] Ortega. Pain in bi lateral legs 7874270015 8805630 M79.604 M79.605 Anxiety 09263999 F41.8 [id number] Unable to lay still for MRI. Will send in clonazepam to take prior to procedure. [id number] SUZANNE HEATON [facility] ([facility]) [address] [place] [address] 84843-854 5 01/06/2025 11:45:44 01/06/2025 13:58:55 Chronic chest pain 3899451816 41927 R07.9 G89.29 796477 Chronic ki dney disease stage 5 752249586 N18.5 Z99.2 Currently on dialysis. Coronary arteriosclerosis 80550116 I25.10 Recent stent placement. Follow-up with cardiology next week. Will discuss chest pain with them as well. 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 Chronic renal failure 90 756851 N18.5 94193772 Dialysis. Hyperkalemia 95589716 E8 7.5 9805 Labs checked yesterday at Dialysis. Atypical chest pain 1025 32096 R07.89 401658 Recurrent. Following with cardiology . Recently started Isosorbide . History of abnormal cervical Papanicolaou smear 529300708 Z87.42 7880705 [id number] SUZANNE HEATON [facility] ([facility]) [address] [place] [address] 03/31/2025 10:56:17 03/31/2025 12:04:26 Chronic chest pain 0049692665 56002 R07.9 G89.29 941849 Spasm 74756535 M62.838 Pain in bi lateral legs 1951542639 7954073 M79.604 M79.605 Site-speci fic infective disorders of skin 039951285 L08.9 92709 right index finger Chronic pain syndrome 37 8506953 G89.4 69631 Gabapentin . [id number] SUZANNE HEATON [facility] ([facility]) [address] [place] [address] 65850-804 5 04/14/2025 11:22:24 04/14/2025 14:24:51 Chronic chest pain 9596196199 99559 R07.9 G89.29 124971 Essential hypertension 38589473 I10 42552 Took her blood pressure medication about an hour ago. Pressure at home has been pretty good. Type 1 mainor betes mellitus 65245963 E10.[address] Ortega. Will schedule pump training with patient on a F. Will have procurement officer set up a time where she can use an exam room here. [id number] SUZANNE HEATON [facility] ([facility]) [address] [place] [address] 76233-705 5 05/05/2025 14:52:32 05/05/2025 16:30:15 Pain of knee region 5463477806 M25.569 Chest pain 22769193 R07. 9 904361 Recurrent. Following with cardiology . Recently started colchicine daily and it has been helpful. Chronic ki dney disease stage 5 332993382 N18.5 Z99.2 Currently on dialysis. Generalize d anxiety disorder 80024505 F41.1 65598 Unable to lay still for MRI. Will send in clonazepam to take prior to procedure. [id number] SUZANNE HEATON [facility] ([facility]) [address] [place] [address] 06/09/2025 15:06:12 06/09/2025 16:23:26 Essential hypertension 44536599 I10 Blood pressure elevated. She has been bottoming out at dialysis. Type 1 mainor betes mellitus 41805498 E10.22 Planning on getting an insulin pump tomorrow. Spasm 62224076 M62.838 Generalized edema 991874 008 R60.1 07313 Chest wall pain 41067047 6 R07.89 56150 Recurrent. Following with cardiology . Recently started Isosorbide . Cellulitis of right index finger 5810212375 7100 L03.011 77176285 Continue antibiotic s. Health Concerns Section Related Observation LastModified by Organization Detai ls LastModified Time None Recorded Concern Status LastModified by Organization Details LastModified Time None Recorded Advance Directives Directive None Recorded Payers Insurance Date Sequence Insurance Name Policy Number Policy Varela Covered Member ID Varela Member ID Guarantor Name 06/06/2025 [place] - [facility] (MEDICARE) Donita Aguilar [id number] Donita Aguilar 06/06/2025 [place] [facility] Donita Aguilar [id number] Donita Aguilar 06/06/2025 2 [place] Donita Aguilar [id number] Donita Aguilar 06/06/2025 1 [place] [facility] Donita Aguilar [id number] Donita Aguilar 12/07/2024 1 [facility] ([place] - [place]) [facility] Donita Aguilar [id number] Donita Aguilar Notes Date Note Type Note [...] issues. wants gabapentin lowered back to 100mg. SARA HEATON[address], [address], [facility] 03/03/2025 13:06:19 5 text/htm l Angina/Chest PainReported by PatientHPIFor quality, patient reportsheaviness. For context, patient reportsat rest. For severity, patient reportsmoderate. For onset/timing, patient reportshas noted for yearsandintermittent. For alleviating factors, patient reportsnitroglycerinandrest. SARA HEATON[address], [address], [facility] 03/31/2025 17:08:26 5 text/htm l DyspneaReported by PatientHPIFor quality, patient reportssqueezing,tightness,p ressure,can't catch breath,breathlessness,inabil ity to take a deep breath, andhurts to breathe. For associated symptoms, patient reportsfever,chills,weakness ,hoarseness, anddecrease in exercise capacity. For severity, patient reportsmoderateandlimits activity. For duration, patient reportsfor 2 weeks. For onset/timing, patient reportswith exertion. For pulmonary disease history, patient reportshistory of pulmonary disease. SUZANNE HEATON [address] [place] [address], [address], [facility] 04/14/2025 14:09:54 5 text/htm l Generalized Anxiety DisorderReported by Patient Joint PainReported by PatientHPIFor quality, patient reportsdull. For location, patient reportsleft knee. For severity, patient reportsno change. For duration, patient reportspresent <1 month. For timing, patient reportsconstant. ELIZABETH HOUSER, [facility] [address] [place], [address], [facility] 05/06/2025 10:11:39 5 text/htm l Hypertension IM/FMReported by PatientHPIFor severity, patient reportsstage 2 (>140/>90 mmhg). For associated symptoms, patient reportschest pain(chronic chest pain). For quality, patient reportshere for check-up. For duration, patient reportshtn present for ___ years. For alleviating factors, patient reportsmedication. For risk factors, patient reportsmyocardial infarction,end-stage renal disease, anddiabetes. ELIZABETH HOUSER, [facility] [address] [place], [address], [facility] 06/09/2025 16:15:09 OBGyn Episode No OBEpisode recorded.
--- OUTSIDE RECORDS SUMMARY | 2025-06-13 15:28 | XMS_ITS | Encounter Summary ---
Author Organization [facility] [employer], [facility] Address [address] [place] [address] Phone Care Team Providers Care Business Education Professor Name Role Phone Alexis Garcia MD Primary Care Provider [phone] Encounter Details Date Type Department Care Team (Late st Contact Info) Description 06/08/[address] [facility] [employer] [address] [place] [address] Karlene Cespedes NP [address] [place] [address] End stage renal disease; Dependence [...] Dialysis Note - Karlene Cespedes NP - 06/08/2025 12:00 AM CST Patient: Donita Aguilar, 1985, 39y, F Dialysis Location: [facility] Attending Paint Coating Machine Operator: Chey Navas Service Date: 06/08/2025 Service Provider: Karlene Cespedes NP I met face to face with the patient today. OVERVIEW The patient presented with ESRD on dialysis Primary cause of renal failure: Type 1 diabetes mellitus with diabetic chronic kidney disease Comments: VSS, seen on HD machine Hx ESRD secondary to DM I. She did start dialysis about during a hospitalization in [place], [place]. Hx of meth us. She did [...] controlled. No changes indicated. BP Stand Pre 06/08/2025: 145/88 06/05/2025: 138/80 06/03/2025: 103/65 BP Sit Pre 06/08/2025: 150/78 06/05/2025: 182/79 06/03/2025: 108/71 BP Stand Post 06/08/2025: 127/62 06/05/2025: 140/62 06/03/2025: 126/90 BP Sit Post 06/08/2025: 130/69 06/05/2025: 130/100 06/03/2025: 139/86 Prescribed Tx time 06/08/2025: 3:30 06/05/2025: 3:30 06/03/2025: 3:30 Tx Duration 06/08/2025: 3:32 06/05/2025: 3:32 06/03/2025: 3:36 Missed Treatments 0 - last 30 days 0 - last 60 days FLUID ASSESSMENT Comments: Stable. Fluid status acceptable. Interdialytic weight gain acceptable. No changes indicated. EDW (kg) 06/08/2025: 63.0 06/05/2025: 63.0 06/03/2025: 63.0 Weight Pre (kg) 06/08/2025: 66.1 06/05/2025: 64.9 06/03/2025: 63.1 Weight Post (kg) 06/08/2025: 63.6 06/05/2025: 63.3 06/03/2025: 62.9 PWV (kg) 06/08/2025: 0.6 06/05/2025: 0.3 06/03/2025: -0.1 UF Rate (mL/kg/hr) 06/08/2025: 11.1 06/05/2025: 7.2 06/03/2025: 0.9 ADEQUACY ASSESSMENT Comments: Repeat Kt/v. spKt/V, URR 05/27/2025: 1.66, 77.4 05/11/2025: 1.89, [...] monthly Vit B 12 injections. HGB, TSAT 06/03/2025: 11.1, - 05/27/2025: 10.5, 44.0 05/19/2025: 11.0, - Ferritin 05/27/2025: 1011.0 03/02/2025: 698.0 11/26/2024: 784.0 Mircera, IVP (mcg) 05/25/2025: 50 05/11/2025: 50 04/13/2025: 50 Iron Sucrose (Venofer) (mg) 06/08/2025: 50 06/01/2025: 50 05/25/2025: 100 BMM ASSESSMENT Comments: Increased calcitriol. Ed to take binders and low phos diet Phos is better at goal. PTH, Intact 05/27/2025: 577.0 05/04/2025: 746.0 04/13/2025: 561.0 Calcium, Phosphorus 05/27/2025: 8.2, 5.8 04/29/2025: 8.0, 5.4 03/25/2025: 8.4, 5.2 Vitamin D (Calcitriol) Oral (mcg) 06/08/2025: 1.75 06/05/2025: 1.75 06/03/2025: 1.75 NUTRITION ASSESSMENT Comments: nPCR did drop some. Albumin is about the same. Ed to eat protein in diet. Ed on low potassium diet. Repeat potassium. Potassium, Albumin 05/27/2025: 4.3, 3.4 05/11/2025: 5.8, - 04/29/2025: 6.0, 3.4 eNPCR 05/27/2025: 0.59 05/11/2025: 0.53 05/06/2025: 0.34 DIAGNOSIS Chief Complaint: N18.6 End stage renal disease Patient data updated 06/08/2025 at 4:52 PM Signed By: Karlene Cespedes NP on 06/08/2025 4:53:28 PM documented in this encounter Plan of Treatment Not on file documented as of this encounter Visit Diagnoses Diagnosis End stage renal disease Dependence on renal dialysis documented in this encounter Care Teams Business Education Professor Relationship Specialty Start Date End Date Alexis Garcia MD [address] [place] [address] PCP - General Family Medicine 04/16/22 documented as of this encounter
--- OUTSIDE RECORDS SUMMARY | 2025-06-13 15:28 | XMS_ITS | Encounter Summary ---
Author Organization [facility] Address [address] [place] [address] Care Team Providers Care Project Management Instructor Name Role Phone Shravan Jones DO Primary Care Provider [phone] Encounter Details Date Type Department Care Team (Late st Contact Info) Description 01/09/2017 Lab Requisition [facility] [address] [place] [address] Izabela Diamond MD NO ADDRESS ON FILE Social History Tobacco Use Types Packs/Day Years Used Date Smoking Tobacco: Every Day Cigarettes Comments:pt lethargic Comments Unknown Sex and Gender Information Value Date Recorded Sex Assigned at Not on file 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 - 01/09/2017 5:53 AM CDT Due to Photocopy Operator update, MG+ reference range has changed from 1.8 - 2.4 mg/dL to the new reference range of 1.6 - 2.6 mg/dL. This will have limited patient impact. us Izabela Diamond MD CHEMISTRY ORDERABLES Final Res ult [facility] CLIA# [id number] [address] [place] [address] * (ABNORMAL) COMPREHENSIVE METABOLIC PANEL (01/09/2017 3:15 AM CDT) SODIUM 139 136 - 145 mmol/L 01/09/2017 5:53 AM CDT [facility] POTASSIUM 4.1 3.5 - 5.1 mmol/L 01/09/2017 5:53 AM T [facility] CHLORIDE 101 98 - 107 mmol/L 01/09/2017 5:53 AM T [facility] CO2 28 21 - 32 mmol/L 01/09/2017 5:53 AM T [facility] CALCIUM 8.8 8.4 - 10.1 mg/dL 01/09/2017 5:53 AM T [facility] BUN 18(H) 7 - 17 mg/dL 01/09/2017 5:53 AM T [facility] CREATININE 0.73 0.55 - 1.02 mg/dL 01/09/2017 5:53 AM T [facility] GLUCOSE 182(H) 74 - 106 mg/dL 01/09/2017 5:53 AM T [facility] TOTAL PROTEIN 8.4(H) 6.4 - 8.2 g/dL 01/09/2017 5:53 AM T [facility] ALBUMIN 2.5(L) 3.4 - 5.0 g/dL 01/09/2017 5:53 AM CDT [facility] BILIRUBIN TOTAL 0.2 0.2 - 1.0 mg/dL 01/09/2017 5:53 AM CDT [facility] ALKALINE PHOSPHATASE 99 25 - 100 U/L 01/09/2017 5:53 AM CDT [facility] AST 30 15 - 37 U/L 01/09/2017 5:53 AM CDT [facility] ALT 27 13 - 61 U/L 01/09/2017 5:53 AM CDT [facility] GFR >60 >=60 mL/min/1.7 3 sq meter 01/09/2017 5:53 AM T [facility] Comment: eGFR [...] sq meter 01/09/2017 5:53 AM CDT [facility] ANION GAP 10 4 - 30 mmol/L 01/09/2017 5:53 AM T [facility] Blood 01/09/2017 3:15 AM CDT 01/09/2017 5:12 AM CDT us Izabela Diamond MD CHEMISTRY ORDERABLES Final Res ult [facility] CLIA# [id number] [address] [place] [address] * (ABNORMAL) CBC WITH DIFFERENTIAL (01/09/2017 3:15 AM CDT) WBC 8.7 4.5 - 11.0 K/uL 01/09/2017 5:20 AM [facility] RBC 4.63 4.20 - 5.40 M/uL 01/09/2017 5:20 AM [facility] HEMOGLOBIN 11.3(L) 12.0 - 16.0 g/dL 01/09/2017 5:20 AM [facility] HEMATOCRIT 36.8 36.0 - 46.0 % 01/09/2017 5:20 AM [facility] MCV 79.5(L) 84.0 - 103.0 fL 01/09/2017 5:20 AM [facility] MCH 24.4(L) 27.0 - 34.0 pg 01/09/2017 5:20 AM [facility] MCHC 30.7 30.0 - 35.0 g/dL 01/09/2017 5:20 AM [facility] RDW 17.3(H) 11.0 - 14.5 % 01/09/2017 5:20 AM [facility] RDW-STDEV 50.4 37.0 - 54.0 fL 01/09/2017 5:20 AM [facility] PLATELETS 463(H) 140 - 440 K/uL 01/09/2017 5:20 AM [facility] MPV 9.9 8.9 - 12.8 fL 01/09/2017 5:20 AM [facility] NEUTROPHILS 46 42 - 75 % 01/09/2017 5:20 AM [facility] LYMPHOCYTES 33 24 - 44 % 01/09/2017 5:20 AM [facility] MONOCYTES 8 2 - 10 % 01/09/2017 5:20 AM [facility] EOSINOPHILS 11(H) 0 - 7 % 01/09/2017 5:20 AM [facility] BASOPHILS 1 0 - 1 % 01/09/2017 5:20 AM [facility] IMMATURE GRANULOCYTES 0 0 - 2 % 01/09/2017 5:20 AM [facility] NEUTROPHIL ABSOLUTE 4.05 2.00 - 8.00 K/uL 01/09/2017 5:20 AM CDT [facility] LYMPHOCYTE ABSOLUTE 2.86 1.20 - 4.00 K/uL 01/09/2017 5:20 AM CDT [facility] MONOCYTE ABSOLUTE 0.73(H) 0.10 - 0.60 K/uL 01/09/2017 5:20 AM CDT [facility] EOSINOPHIL ABSOLUTE 0.95(H) 0.00 - 0.70 K/uL 01/09/2017 5:20 AM CDT [facility] BASOPHILS ABSOLUTE 0.11 0.00 - 0.20 K/uL 01/09/2017 5:20 AM CDT [facility] IMMATURE GRANULOCYTES ABSOLUTE 0.03 0.00 - 0.10 K/uL 01/09/2017 5:20 AM CDT [facility] Blood 01/09/2017 3:15 AM CDT 01/09/2017 5:12 AM CDT us Izabela Diamond MD HEMATOLOGY ORDERABLES Final Re sult [facility] CLIA# [id number] [address] [place] [address] * (ABNORMAL) HEMOGLOBIN A1C (01/09/2017 2:52 AM CDT) HEMOGLOBIN A1C 8.9(H) 4.0 - 6.0 % 01/09/2017 1:31 PM CDT [facility] EST. AVG GLUCOSE, A1C 209 mg/dL 01/09/2017 1:31 PM CDT [facility] Blood 01/09/2017 2:52 AM CDT 01/09/2017 6:53 AM CDT Narrative [facility] - 01/09/2017 1:31 PM CDT Test performed on [employer] instrumentation using HPLC methodology us Izabela Diamond MD CHEMISTRY ORDERABLES Final Res ult [facility] CLIA# [id number] [address] [place] [address] documented in this encounter Visit Diagnoses Not on filedocumented in this encounter Care Teams Project Management Instructor Relationship Specialty Start Date End Date Shravan Jones DO PCP - General Family Practice 12/04/16 documented as of this encounter
--- OUTSIDE RECORDS SUMMARY | 2025-06-13 15:28 | XMS_ITS | Encounter Summary ---
Author Organization [facility] Address [address] [place] [address] Care Team Providers Care Supplier Specialist Name Role Phone Shravan Jones DO Primary Care Provider [phone] Encounter Details Date Type Department Care Team (Late st Contact Info) Description 01/07/2017 Lab Requisition [facility] [address] [place] [address] [place] [address] David Ortega MD [address] [place] [address] Social History Tobacco Use Types Packs/Day Years Used Date Smoking Tobacco: Every Day Cigarettes Comments:pt lethargic Comments Unknown Sex and Gender Information Value Date Recorded Sex Assigned at Not on file 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 Gender Identity Not on file Sexual [...] Detected Not Detected 01/07/2017 8:08 PM CDT [facility] Stool STOOL SPECIMEN / Unknown 01/07/2017 1:54 PM CDT 01/07/2017 6:53 PM CDT Narrative [facility] - 01/07/2017 8:08 PM CDT [...] MICROBIOLOGY - GENERAL ORDERAB LES Final Result [facility] CLIA# [id number] [address] [place] [address] documented in this encounter Visit Diagnoses Not on filedocumented in this encounter Care Teams Supplier Specialist Relationship Specialty Start Date End Date Shravan Jones DO PCP - General Family Practice 12/04/16 documented as of this encounter
--- OUTSIDE RECORDS SUMMARY | 2025-06-13 15:28 | XMS_ITS | Clinical Summary ---
Author Organization [facility] Address [address] [facility] Attn: [place] [address] Care Team Providers Care Slip Filler Name Role Phone Shravan Jones DO Primary [...] subcutaneous injection. Active naloxone (NARCAN) 4 mg/spray [place], Non-Aerosol EMERGENCY USE ONLY: Administer 1 spray [...] regarding vascular access for dialysis for ESRD ([facility]) Take 1 Tablet (5 mg) by mouth [...] troponin 09/22/2023 Coronary artery disease invo lving citizen [place] coronary artery of citizen [place] heart without angina pectoris 09/21/2023 End stage [...] Encounters Date Type Department Care Team Description 06/08/2025 External Device Data STL ABSTRACTION Provider, Abstract 06/01/2025 External Device Data STL ABSTRACTION Provider, [...] and Family Not on file 09/22/2023 Attends Yarsanism Services Not on file 09/21 Active Member [...] on file Legal Sex Female 3:34 PM SOD STRIPPER Gender Identity Not on file Sexual Orientation [...] st Contact Info) Description 08/18/2025 11:00 AM SOD STRIPPER Office Visit [facility] G[facility]ology- [place] [address] [facility] [address] [place] [address] Kellee Garcia HAYDEE Nick [address] [facility] [address] [place] [address] Health Maintenance Due Date Last [...] Required) Completed Medical Devices Implanted Type Area Senior Php Web Developer Device Identifier Shelf Expiration Date Model / Serial / Lot Max dailym Flour [id number] - [id number] Implanted:Qty : 2 on 12/17/2016 by Deandre Alan MD Biological Left: Lung CR BARD- DAVOL INC 09/19/2019 [id number] / / [id number] Cath Dialysis Glidepath 14.5fr 24cm Std [id number] - [id number] Implanted:Qty : 1 on 03/18/2024 by Asif Mcclellan MD at [facility] Catheter Right: Chest BARD ANGEL VASC 09/21/2025 [id number] / / [id number] Clip Ligating Horizon Red 354088 - Csc - [id number] Implanted:Qty : 1 on 08/10/2024 by Chato Fitch MD at [facility] Clip Left: Arm TELEFLEX INC [id number] 05/16/2029 [id number] / / [id number] Clip Ligating Horizon Med Ti 631199 - Csc - [id number] Implanted:Qty : 1 on 08/10/2024 by Chato Fitch MD at [facility] Clip Left: Arm TELEFLEX- WECK CLOSURE SYS [id number] 03/31/2029 [id number] / / [id number] Entry Level Business Analyst Ligaclip Sml Mcs20 - [id number] Implanted:Qty : 1 on 08/10/2024 by Chato Fitch MD at [facility] Clip Left: Arm J&J- ETHICON ENDO-SURGERY INC [id number] 03/23/2029 MCS20 / / [id number] Closure Perclose Prostyle Sut Mediate 22392-93 - [id number] Implanted:Qty : 1 on 09/24/2023 by Janell Beauchamp MD at [facility] Closure Device N/A: Groin LOVE- VASC DEVICE [id number] 06/23/2025 74108-08 / / [id number] Closure Perclose Prostyle Sut Mediate 21684-57 - [id number] Implanted:Qty : 1 on 10/24/2023 by Janell Beauchamp MD at [facility] Closure Device Right: Groin LOVE- VASC DEVICE [id number] 07/24/2025 02808-68 / / [id number] Oil Slc 8.5ml [id number] - Sgtin:[id number] Implanted:Qty : 1 on 06/23/2024 by Janey Carrera MD at [facility] Eye Right: Eye [facility]INA LAB 12/21/2026 [id number] / [id number]:[id number] / [id number] Graft Vasc Propaten 4-3vrt44eb [id number] - [id number] Implanted:Qty : 1 on 08/10/2024 by Chato Fitch MD at [facility] Graft Left: Arm [employer] [id number] 05/21/2027 [id number] / [id number] / Agent Hemostat Surgicel 2x3in 1952s - [id number] Implanted:Qty : 1 on 08/10/2024 by Chato Fitch MD at [facility] Hemostatic Left: Arm J&J- ETHICON INC [id number] 12/21/20281952S / / [id number] Hemostatic Surgiflo 8ml W/ Thrombin 2994 - [id number] Implanted:Qty : 1 on 08/10/2024 by Chato Fitch MD at [facility] Hemostatic Left: Arm J&J- ETHICON INC [id number] 10/21/2025 2994 / / [id number] Agent Hemostat Surgicel 2x3in 1952s - [id number] Implanted:Qty : 1 on 08/10/2024 by Chato Fitch MD at [facility] Hemostatic Left: Arm J&J- ETHICON INC [id number] 12/21/20281952S / / [id number] Stent Synergy Xd 3.0x48mm Evrlms Elut [id number] 0 - [id number] Implanted:Qty : 1 on 09/24/2023 by Janell Beauchamp MD at [facility] Stent N/A: Coronary BOSTON SCI GENEVIEVE [id number] 03/31/2025 [id number] / / [id number] Stent Synergy Xd 2.99g45oz Evrlms Elut [id number] - [id number] Implanted:Qty : 1 on 10/24/2023 by Janell Beauchamp MD at [facility] Stent Left: Coronary BOSTON SCI GENEVIEVE [id number] 08/19/2024 [id number] 220 / / [id number] Control Implant Funmi Procedures Procedure Name Priority Date/Time Associated Diagnosis Comments LIPID PANEL Routine 09/21/2023 6:47 PM CDT HEMOGLOBIN A1C Routine 09/21/2023 6:46 PM CDT from Last 3 Months or Most Recently Relevant to Health Maintenance Results * (ABNORMAL) LIPID PANEL (09/21/2023 6:47 PM CDT) [facility] CHOLESTEROL 96 <200 mg/dL 09/21/2023 10:29 PM CDT [facility] TRIGLYCERIDE 164(H) <150 mg/dL 09/21/2023 10:29 PM CDT [facility] HDL 36(L) 40 - 59 mg/dL 09/21/2023 10:29 PM CDT [facility] LDL CALCULATED 27 <100 mg/dL 09/21/2023 10:29 PM CDT [facility] NON-HDL CHOLESTEROL 60 <130 mg/dL 09/21/2023 10:29 PM CDT [facility] Blood Venipuncture / Unknown 09/21/2023 6:47 PM CDT 09/21/2023 7:10 PM CDT [facility] - 09/21/2023 10:29 PM CDT TOTAL CHOLESTEROL [...] MD CHEMISTRY ORDERABLES Final R esult [facility] CLIA # [id number] [address] [address] [place] [address] * (ABNORMAL) HEMOGLOBIN A1C (09/21/2023 6:46 PM CDT) HEMOGLOBIN A1C 6.8(H) <=5.6 % 09/23/2023 9:24 AM CDT [facility] EST. AVG GLUCOSE, A1C 148 mg/dL 09/23/2023 9:24 AM CDT [facility] Blood Venipuncture / Unknown 09/21/2023 6:46 PM CDT 09/21/2023 7:08 PM CDT Narrative [facility] - 09/23/2023 9:24 AM CDT HGB A1C INTERPRETATION NORMAL: <5.7% PRE-DIABETES: 5.7 - 6.4% DIABETES: 6.5% OR GREATER Luiz Lacy MD CHEMISTRY ORDERABLES Final R esult [facility] CLIA # [id number] [facility] [address] from Last 3 Months or Most Recently Relevant to Health Maintenance Insurance [place] PART [place] B Advance Directives For more information, please contact: [phone] * Full Code (Latest Code Status on File) Date Activated Date Inactivated Comments 10/24/2023 2:34 PM 10/25/2023 11:47 AM * Full Code Date Activated Date Inactivated Comments 10/24/2023 9:13 AM 10/24/2023 2:34 PM * Full Code Date Activated Date Inactivated Comments 09/24/2023 3:14 PM 09/25/2023 9:51 PM * Full Code Date Activated Date Inactivated Comments 09/21/2023 5:50 PM 09/24/2023 3:14 PM Care Teams Slip Filler Relationship Specialty Start Date End Date Shravan Jones DO PCP - General Family Practice 12/04/16
--- OUTSIDE RECORDS SUMMARY | 2025-06-13 15:28 | XMS_ITS | Encounter Summary ---
Author Organization [facility] Address 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 [place] [address] Kellee Garcia, NEWS LIBRARIAN [address] [facility] [address] [place] [address] documented as of this encounter Visit Diagnoses Not on filedocumented in this encounter Care Teams County Court Judge Relationship Specialty Start Date End Date Shravan Jones DO PCP - General Family Practice 12/04/16 documented as of this encounter
--- OUTSIDE RECORDS SUMMARY | 2025-06-13 15:28 | XMS_ITS | Encounter Summary ---
Author Organization [facility] Address [address] [place] [address] Phone Care Team Providers Care Per Diem Nurse Name Role Phone Alexis Garcia MD Primary Care Provider [phone] Encounter Details Date Type Department Care Team (Late st Contact Info) Description 04/16/2022 Orders Only [facility] [address] [place] [address] Chronic kidney disease, Stage IV [...] (severe) documented in this encounter Care Teams Per Diem Nurse Relationship Specialty Start Date End Date Alexis Garcia MD [address] [place] [address] PCP - General Family Medicine 04/16/22 documented as of this encounter
--- OUTSIDE RECORDS SUMMARY | 2025-06-13 15:28 | XMS_ITS | Encounter Summary ---
Author Organization [facility] Address [address] [place] [address] Care Team Providers Care Silk Conditioner Name Role Phone Shravan Jones DO Primary Care Provider [phone] Reason for Visit * Reason Onset Date Comments Appointment Notification 11/05/2023 Encounter Details Date Type Department Care Team (Late st Contact Info) Description 11/05/2023 Telephone [facility] [address] [place] [address] Janell Beauchamp MD [address] [place] [address] Appointment Notification Social History Tobacco Use Types Packs/Day Years Used Date Smoking Tobacco: Every Day Comments:Quit smoking: pt le thargic Social Connections Answer Date Recorded In a typical week, how many times do you talk on the telephone with family, friends, or neighbors? 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 For 11/25 as she has other appts in town that day. Please call pt to reschedule. [facility] Forestry Support Specialist: Patrica Barney documented in this encounter Plan of Treatment Upcoming Encounters Date Type Department Care Team (Late st Contact Info) Description 08/18/2025 11:00 AM HYDRAULIC TECHNICIAN Office [facility] [address] [facility] [address] [place] [address] Kellee Garcia, HAYDEE [address] [facility] [address] [place] [address] documented as of this encounter Visit Diagnoses Not on filedocumented in this encounter Additional Health Concerns Infection Onset Date Last Indicated Resolved Time R/O C. diff 07/06/2024 07/06/2024 07/06/2024 8:35 AM HYDRAULIC TECHNICIAN documented as of this encounter Care Teams Silk Conditioner Relationship Specialty Start Date End Date Shravan Jones DO PCP - General Family Practice 12/04/16 documented as of this encounter
--- OUTSIDE RECORDS SUMMARY | 2025-06-13 15:28 | XMS_ITS | Encounter Summary ---
Author Organization [facility] Address [address] [place] [address] Care Team Providers Care Service Dispatcher Name Role Phone Shravan Jones DO Primary Care Provider Encounter Details Date Type Department Care Team (Late st Contact Info) Description 12/28/2016 Lab Requisition [facility] [address] [place] [address] [place] [address] David Ortega MD [address] [place] [address] Social History Tobacco Use Types Packs/Day Years Used Date Smoking Tobacco: Every Day Cigarettes Comments:pt lethargic Comments Unknown Sex and Gender Information Value Date Recorded Sex Assigned at Not on file 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 Gender Identity Not on file Sexual [...] - 4.9 mg/dL 12/28/2016 5:42 AM CDT [facility] Blood Collection / Unknown 12/28/2016 2:39 AM CDT 12/28/2016 5:01 AM CDT David Ortega MD CHEMISTRY ORDERABLES Final Res ult Performing Organization Address [facility] Co de Phone Number [facility] CLIA# [id number] [address] [place] [id number] * MAGNESIUM LEVEL (12/28/2016 2:39 AM CDT) [facility] MAGNESIUM 1.6 1.6 - 2.6 mg/dL 12/28/2016 5:42 AM CDT [facility] Blood Collection / Unknown 12/28/2016 2:39 AM CDT 12/28/2016 5:01 AM CDT Narrative [facility] - 12/28/2016 5:42 AM CDT Due to Business Lawyer update, MG+ reference range has changed from 1.8 - 2.4 mg/dL to the new reference range of 1.6 - 2.6 mg/dL. This will have limited patient impact. David Ortega MD CHEMISTRY ORDERABLES Final Res ult Performing Organization Address [facility] Co de Phone Number [facility] CLIA# [id number] [address] [place] [address] * PROTIME-INR (12/28/2016 2:39 AM CDT) [facility] PROTIME 15.0 12.3 - 15.5 Seconds 12/28/2016 5:16 AM CDT [facility] INR 1.1 0.8 - 1.2 12/28/2016 5:16 AM CDT [facility] Blood Collection / Unknown 12/28/2016 2:39 AM CDT 12/28/2016 5:01 AM CDT [place] [facility] - 12/28/2016 5:16 AM CDT Expected Values for INR: DVT/PE Goal INR 2.5; range 2.0 - 3.0 Valve Replacement Tissue Goal INR 2.5; range 2.0 - 3.0 Valve Replacement Mechanical Goal INR 3.0; range 2.5 - 3.5 POST-TN Goal INR 2.5; range 2.0 - 3.0 or Goal INR 3.0; range 2.5 - 3.5 Atrial Fibrillation Goal INR 2.5; range 2.0 - 3.0 Ischemic Stroke Goal INR 2.5; range 2.0 - 3.0 For additional information see Guidelines for Anticoagulation available from the pharmacy Wendy Vargas Pharm D. David Ortega MD HEMATOLOGY ORDERABLES Final Re sult [facility] CLIA# [id number] [address] [place] [address] * (ABNORMAL) PTT (12/28/2016 2:39 AM CDT) PTT 39.1(H) 24.8 - 38.8 seconds 12/28/2016 5:16 AM CDT [facility] Blood Collection / Unknown 12/28/2016 2:39 AM CDT 12/28/2016 5:01 AM CDT [place] [facility] - 12/28/2016 5:16 AM CDT Therapeutic Range: Hi-level PE/DVT heparin protocol 80.1 - 95.0 sec Lo-level PE/DVT heparin protocol 70.1 - 85.0 sec Cardiac Heparin Protocol 70.1 - 100.0 sec David Ortega MD HEMATOLOGY ORDERABLES Final Re sult [facility] CLIA# [id number] [facility] [place] [address] * (ABNORMAL) CBC WITH DIFFERENTIAL (12/28/2016 2:39 AM CDT) Pathologist [facility] WBC 11.0 4.5 - 11.0 K/uL 12/28/2016 5:09 AM CDT [facility] RBC 3.80(L) 4.20 - 5.40 M/uL 12/28/2016 5:09 AM CDT [facility] HEMOGLOBIN 9.3(L) 12.0 - 16.0 g/dL 12/28/2016 5:[facility] H[facility] 30.6(L) 36.0 - 46.0 % 12/28/2016 5:09 AM CDT [facility] MCV 80.5(L) 84.0 - 103.0 fL 12/28/2016 5:09 AM CDT [facility] MCH 24.5(L) 27.0 - 34.0 pg 12/28/2016 5:09 AM CDT [facility] MCHC 30.4 30.0 - 35.0 g/dL 12/28/2016 5:09 AM CDT [facility] RDW 17.3(H) 11.0 - 14.5 % 12/28/2016 5:09 AM T [facility] RDW-STDEV 51.8 37.0 - 54.0 fL 12/28/2016 5:09 AM CDT [facility] PLATELETS 757(H) 140 - 440 K/uL 12/28/2016 5:09 AM CDT [facility] MPV 8.9 8.9 - 12.8 fL 12/28/2016 5:09 AM CDT [facility] NEUTROPHILS 65 42 - 75 % 12/28/2016 5:09 AM CDT [facility] LYMPHOCYTES 19(L) 24 - 44 % 12/28/2016 5:09 AM CDT [facility] MONOCYTES 10 2 - 10 % 12/28/2016 5:09 AM CDT [facility] EOSINOPHILS 5 0 - 7 % 12/28/2016 5:09 AM CDT [facility] BASOPHILS 1 0 - 1 % 12/28/2016 5:09 AM CDT [facility] IMMATURE GRANULOCYTES 1 0 - 2 % 12/28/2016 5:09 AM CDT [facility] NEUTROPHIL ABSOLUTE 7.19 2.00 - 8.00 K/uL 12/28/2016 5:09 AM CDT [facility] LYMPHOCYTE ABSOLUTE 2.04 1.20 - 4.00 K/uL 12/28/2016 5:09 AM CDT [facility] MONOCYTE ABSOLUTE 1.06(H) 0.10 - 0.60 K/uL 12/28/2016 5:09 AM CDT [facility] EOSINOPHIL ABSOLUTE 0.60 0.00 - 0.70 K/uL 12/28/2016 5:09 AM CDT [facility] BASOPHILS ABSOLUTE 0.07 0.00 - 0.20 K/uL 12/28/2016 5:09 AM CDT [facility] IMMATURE GRANULOCYTES ABSOLUTE 0.07 0.00 - 0.10 K/uL 12/28/2016 5:09 AM T [facility] Blood Collection / Unknown 12/28/2016 2:39 AM CDT 12/28/2016 5:01 AM CDT us David Ortega MD HEMATOLOGY ORDERABLES Final Re sult [facility] CLIA# [id number] [address] [place] [address] * (ABNORMAL) COMPREHENSIVE METABOLIC PANEL (12/28/2016 2:39 AM CDT) SODIUM 143 136 - 145 mmol/L 12/28/2016 5:47 AM CDT [facility] POTASSIUM 3.3(L) 3.5 - 5.1 mmol/L 12/28/2016 5:47 AM [facility] CHLORIDE 103 98 - 107 mmol/L 12/28/2016 5:47 AM [facility] CO2 29 21 - 32 mmol/L 12/28/2016 5:47 AM [facility] CALCIUM 8.9 8.4 - 10.1 mg/dL 12/28/2016 5:47 AM [facility] BUN 13 7 - 17 mg/dL 12/28/2016 5:47 AM [facility] CREATININE 0.70 0.55 - 1.02 mg/dL 12/28/2016 5:47 AM [facility] GLUCOSE 46(LL) 74 - 106 mg/dL 12/28/2016 5:47 AM [facility] TOTAL PROTEIN 8.2 6.4 - 8.2 g/dL 12/28/2016 5:47 AM [facility] ALBUMIN 1.8(L) 3.4 - 5.0 g/dL 12/28/2016 5:47 AM [facility] BILIRUBIN TOTAL 0.2 0.2 - 1.0 mg/dL 12/28/2016 5:47 AM [facility] ALKALINE PHOSPHATASE 93 25 - 100 U/L 12/28/2016 5:47 AM [facility] AST 18 15 - 37 U/L 12/28/2016 5:47 AM [facility] ALT 18 13 - 61 U/L 12/28/2016 5:47 AM [facility] GFR >60 >=60 mL/min/1.7 3 sq meter 12/28/2016 5:47 AM [facility] Comment: eGFR has not [...] sq meter 12/28/2016 5:47 AM CDT [facility] ANION GAP 11 4 - 30 mmol/L 12/28/2016 5:47 AM CDT [facility] Blood Collection / Unknown 12/28/2016 2:39 AM CDT 12/28/2016 5:01 AM CDT us David Ortega MD CHEMISTRY ORDERABLES Final Res ult [facility] CLIA# [id number] [address] [place] [address] documented in this encounter Visit Diagnoses Not on filedocumented in this encounter Care Teams Service Dispatcher Relationship Specialty Start Date End Date Shravan Jones DO PCP - General Family Practice 12/04/16 documented as of this encounter
--- OUTSIDE RECORDS SUMMARY | 2025-06-13 15:28 | XMS_ITS | Encounter Summary ---
Author Organization [facility] Address [address] [place] [address] Phone Care Team Providers Care School Resource Officer Name Role Phone Alexis Garcia MD Primary Care Provider [phone] Encounter Details Date Type Department Care Team (Late st Contact Info) Description 06/10/2025 Orders Only [facility] [address] [place] [address] Chey Navas MD [address] [place] [address] Social History Tobacco Use Types [...] Date/Time Associated Diagnosis Comments HEMOGLOBIN Routine 06/10/2025 documented in this encounter Results * (ABNORMAL) Hemoglobin (06/10/2025) Hemoglobin 10.6(L) 11.7 - 14.0 g/dL [facility] 06/10/2025 06/09/2025 11: 21 AM 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 Narrative Resulting Agency Comment Performing Organization Information: Site ID: [place] Name: [facility] Address: [address] [address] Director: Jennifer De Jesus MD us Chey Navas MD LAB BLOOD ORDERABLES Final Re sult [facility] [address] [place] [address] documented in this encounter Visit Diagnoses Not on filedocumented in this encounter Care Teams School Resource Officer Relationship Specialty Start Date End Date Alexis Garcia MD [address] [place] [address] PCP - General Family Medicine 04/16/22 documented as of this encounter
--- OUTSIDE RECORDS SUMMARY | 2025-06-13 15:28 | XMS_ITS | Continuity of Care Document ---
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 18:33:00 09/22/19 25 ultrasonography of right breast completed [facility] 09/21/2024 13:39:24 09/22/19 25 mammography completed [facility], LMableCJacobo 09/21/2024 13:40:36 09/11/[address] of abdomen completed [facility], LJacoboLJacoboCJacobo 09/13/2024 14:56:32 09/10/19 25 angiography of coronary artery completed [facility], KaelynCJacobo 09/13/2024 14:50:21 09/09/19 25 echocardiography completed [facility], KaelynCJacobo 09/13/2024 14:54:55 09/08/19 25 plain X-ray of chest completed [facility], DonteLJacoboCJacobo 09/13/2024 14:57:51 08/24/[address] of chest completed [facility], LJacoboLJacoboCJacobo 08/24/2024 12:28:02 04/28/20 24 plain X-ray of chest completed [facility] 04/30/2024 11:08:42 03/31/20 24 plain X-ray of chest completed [facility] 04/01/2024 14:05:05 03/27/20 24 imaging guided percutaneous transluminal angioplasty of coronary artery with contrast completed [facility] 10/05/2024 10:23:19 02/28/20 24 radiographic procedure on chest and/or abdomen completed [facility] 03/04/2024 15:02:31 02/28/[address] of abdomen completed [facility], L.LJacoboCJacobo 03/04/2024 15:03:26 01/19/20 24 diagnostic radiography of abdomen completed [facility] 01/21/2024 17:26:25 01/06/20 24 plain X-ray of chest completed [facility] 01/07/2024 15:42:42 12/27/19 24 plain X-ray of chest completed [facility] 12/29/2023 23:23:06 12/27/19 24 CT of chest, abdomen and pelvis completed [facility] 12/29/2023 23:32:58 12/24/19 24 plain X-ray of chest completed [facility] 12/29/2023 23:56:29 12/20/[address] of chest completed [facility] 12/21/2023 12:33:52 12/20/19 24 plain X-ray of chest completed [facility] 12/21/2023 12:34:44 12/09/19 24 plain X-ray of chest completed [facility] 12/12/2023 10:16:37 12/05/19 24 plain X-ray of chest completed [facility] 12/06/2023 13:24:46 11/28/19 24 cardiac catheterization completed [facility] 12/06/2023 13:11:07 11/28/19 24 imaging guided percutaneous transluminal angioplasty of coronary artery with contrast completed [facility] 10/05/2024 10:22:55 11/27/19 24 plain X-ray of chest completed [facility] 11/28/2023 10:19:35 10/24/19 24 imaging guided percutaneous transluminal angioplasty of coronary artery with contrast completed [facility] 10/05/2024 10:22:32 10/16/19 24 imaging guided percutaneous transluminal angioplasty of coronary artery with contrast completed [facility] 10/05/2024 10:22:12 10/07/19 24 plain X-ray of chest completed [facility] 10/08/2023 17:52:40 09/20/19 24 echocardiography completed [facility] LJacoboL.CJacobo 09/26/2023 12:48:56 lobectomy of lung completed XIMENA RISHABH [facility], LJacoboL.CJacobo 10/10/2023 12:32:47 amputation completed XIMENA RISHABH [facility] 08/24/2024 12:24:04 cholecystectomy completed [facility] 09/13/2024 14:49:22 Imaging Results None recorded. Procedure Notes None recorded. Medical Equipment None Reported. Allergies Allergen ID Allergen Name Allergen Category Reaction Reaction Severity Criticality Documentation Date Start Date Code Code System Note Provider Name and Address Organization Details Recorded Time 55969 acetamino phen medicatio n abdominal pain moderate low 01/19/20232021 161 RxNorm GI upset /into leran ce Anh coles [facility] 4 07:57:42 92792 acetamino phen medicatio n Not available Not available Not available 02/21/20242023 161 RxNorm NAJMA HOUSER, SUZANNE [address] [place], [address], [facility] 15:59:31 93542 ranolazin e medicatio n Not available Not available Not available 04/14/2025 76552 RxNorm Hallu cinat ions XIMENA coles [facility], L.[facility]onay. 5 11:33:58 Medications Name Sig Start Date [...] wanted her to decrease to 100mg TID [facility], 02/27 and 02/28 Not Available Not Available [...] times per day 10/09 completed VO CH/jl; 92793; Recorded 05/14/20 19 10:02AM by Leydi Jessica [...] Organization Details Last Updated DateTime 152.4 cm 27.3 kg/m2 51139.9 3 g 97 % 88 /min 20 /min 174/100 mm[Hg] 170/90 mm[Hg] XIMENA KEATING [facility] 15:22:55 Social History Question Answer Notes LastModified by Organizat ion Details LastModified Time Tobacco Smoking Status Former Smoker Quit 07/2023 XIMENA KEATING [facility] 12/24/2023 12:30:16 What Type Of Diet Are You Following? REGULAR [email or web address] Information not available 12/24/2023 Which Illicit Or Recreational Drugs Have You Used? Smokes Meth [email or web address] Information not available 10/10/2023 When Did You [...] or recreational drugs? Yes Quit Meth 07/2023 [email or web address] Information not available 12/24/2023 Do you or have you ever used any other forms of tobacco or nicotine? No Information not available 12/24/2023 What is your level of alcohol consumption? None [email or web address] Information not available 10/10/2023 Are you currently employed? No disabled [email or web address] Information not available 10/10/2023 Are you able to walk independently without assistance or assistive devices? YESASSIST [email or web address] Information not available 10/10/2023 Are you able to care for yourself independently? No Mother is her caregiver. [email or web address] Information not available 10/10/2023 Do you or have you ever used any nicotine-free cigarettes, vape, or chewing tobacco? No Information not available 12/24/2023 Mental Status None recorded. Family History Relationship Description Onset Age of this Age Resolved Age Notes LastModified by Organization Details LastModified Time Mother Myocardial infarction In her 50's [email or web address] Not available 12/29/2023 23:44:26 Mother Rheumatoid arthritis [email or web address] Not available 12/28 23:44:44 Brother Acute lymphoid leukemia [email or web address] Not available 10/18 18:24:23 Medical History Condition [...] Recorded Time pneumococcal polysaccharide PPV23 8 completed NAJMA SUZANNE HOUSER [address] [place], [address], [facility], Billie 12/24/2023 12:51:09 Past Encounters Encounter ID Performer Location Encounter Start Date Encounter Closed Date Diagnosis/Indication Diagnosis SNOMED-CT Code Diagnosis ICD10 Code Diagnosis IMO Codes Diagnosis Note [id number] NAJMA SUZANNE HOUSER [facility] [address] [place] [address] 06/09/2025 15:06:12 06/09/2025 16:23:26 Essential hypertension 50531062 I10 Blood pressure elevated. She has been bottoming out at dialysis. Type 1 mainor betes mellitus 69201917 E10.22 Planning on getting an insulin pump tomorrow. Spasm 99644607 M62.838 Generalized edema 330410 008 R60.1 78611 Chest wall pain 52893471 6 R07.89 02946 Recurrent. Following with cardiology . Recently started Isosorbide . Cellulitis of right index finger 0609646508 7100 L03.011 05878278 Continue antibiotic s. Health Concerns Section Related Observation LastModified by Organization Detai ls LastModified Time None Recorded Concern Status LastModified by Organization Details LastModified Time None Recorded Payers Encounter Date Sequence Insurance Name Policy Number Policy Varela Covered Member ID Varela Member ID Guarantor Name 06/09/2025 1 [place] Donita Aguilar [id number] Donita Aguilar 06/09/2025 2 [place] Donita Aguilar [id number] Donita Aguilar Notes Date Note Type Note Provider Name and Address Organization Details Recorded Time 06/09/2025 text/html Hypertension IM/FMReported by PatientHPIFor severity, patient reportsstage 2 (>140/>90 mmhg). For associated symptoms, patient reportschest pain(chronic chest pain). For quality, patient reportshere for check-up. For duration, patient reportshtn present for ___ years. For alleviating factors, patient reportsmedication. For risk factors, patient reportsmyocardial infarction,end-stage renal disease, anddiabetes. NAJMA HOUSER, [facility] [address] [place], [address], [facility], [place]ie 06/09/2025 16:15:09 OBGyn Episode No OBEpisode recorded.
--- OUTSIDE RECORDS SUMMARY | 2025-06-13 15:28 | XMS_ITS | Encounter Summary ---
Author Organization [facility] Address [address] [place] [address] Care Team Providers Care Medical Examiner Name Role Phone Shravan Jones DO Primary Care Provider [phone] Encounter Details Date Type Department Care Team (Late st Contact Info) Description 12/12/2016 Nurse Only [facility] 4D Surgery Heart Lung [address] [place] [address] Stephenie Smith RN [address] [place] [address] Social History Tobacco Use Types Packs/Day Years Used Date Smoking Tobacco: Every Day Cigarettes Comments:pt lethargic Comments Unknown Sex and Gender Information Value Date Recorded Sex Assigned at Not on file Legal Sex Female 4:38 AM [employer] Gender Identity Not on file Sexual Orientation Not on file documented as of this encounter Plan of Treatment Not on file documented as of this encounter Visit Diagnoses Not on filedocumented in this encounter Care Teams Medical Examiner Relationship Specialty Start Date End Date Shravan Jones DO PCP - General Family Practice 12/04/16 documented as of this encounter
--- OUTSIDE RECORDS SUMMARY | 2025-06-13 15:28 | XMS_ITS | Encounter Summary ---
Author Organization [facility] Address [address] [place] [address] Care Team Providers Care Photo Journalist Name Role Phone Shravan Jones DO Primary Care Provider [phone]- [phone] Encounter Details Date Type Department Care Team (Late st Contact Info) Description 01/07/2017 Lab Requisition [facility] Laboratory Services [address] [place] [address] Izabela Diamond MD NO ADDRESS ON FILE Social History Tobacco Use Types Packs/Day Years Used Date Smoking Tobacco: Every Day Cigarettes Comments:pt lethargic Comments Unknown Sex and Gender Information Value Date Recorded Sex Assigned at Not on file 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 Gender Identity Not on file Sexual [...] - 40 mg/dL 01/07/2017 5:27 AM CDT [facility] LABORATORY [facility] Blood 01/07/2017 2:23 AM CDT 01/07/2017 5:01 AM CDT Izabela Diamond MD CHEMISTRY ORDERABLES Final Res ult Performing Organization Address City/[facility]/ZIP Co de Phone Number [facility] CLIA# [id number] [address] [place] [address] * (ABNORMAL) C-REACTIVE PROTEIN (01/07/2017 2:23 AM CDT) CRP 16.6(H) 0.0 - 2.9 mg/L 01/07/2017 5:27 AM CDT [facility] Blood 01/07/2017 2:23 AM CDT 01/07/2017 5:01 AM CDT Izabela Diamond MD CHEMISTRY ORDERABLES Final Res ult Performing Organization Address [facility] Co de Phone Number [facility] CLIA# [id number] [address] [place] [phone] * (ABNORMAL) BASIC METABOLIC PANEL (01/07/2017 2:23 AM CDT) SODIUM 139 136 - 145 mmol/L 01/07/2017 5:27 AM CDT [facility] POTASSIUM 4.1 3.5 - 5.1 mmol/L 01/07/2017 5:27 AM CDT [facility] CHLORIDE 104 98 - 107 mmol/L 01/07/2017 5:27 AM CDT [facility] CO2 26 21 - 32 mmol/L 01/07/2017 5:27 AM CDT [facility] CALCIUM 9.1 8.4 - 10.1 mg/dL 01/07/2017 5:27 AM CDT [facility] BUN 14 7 - 17 mg/dL 01/07/2017 5:27 AM CDT [facility] CREATININE 0.82 0.55 - 1.02 mg/dL 01/07/2017 5:27 AM T [facility] GLUCOSE 274(H) 74 - 106 mg/dL 01/07/2017 5:27 AM T [facility] GFR >60 >=60 mL/min/1.7 3 sq meter 01/07/2017 5:27 AM T [facility] Comment: eGFR [...] 3 sq meter 01/07/2017 5:27 AM T [facility] ANION GAP 9 4 - 30 mmol/L 01/07/2017 5:27 AM [facility] Blood 01/07/2017 2:23 AM CDT 01/07/2017 5:01 AM CDT us Izabela Diamond MD CHEMISTRY ORDERABLES Final Res ult [facility] CLIA# [id number] [address] [place] [id number] * (ABNORMAL) CBC WITH DIFFERENTIAL (01/07/2017 2:23 AM CDT) WBC 9.3 4.5 - 11.0 K/uL 01/07/2017 5:27 AM CDT [facility] RBC 4.19(L) 4.20 - 5.40 M/uL 01/07/2017 5:27 AM CDT [facility] HEMOGLOBIN 10.3(L) 12.0 - 16.0 g/dL 01/07/2017 5:27 AM [facility] HEMATOCRIT 33.2(L) 36.0 - 46.0 % 01/07/2017 5:27 AM [facility] MCV 79.2(L) 84.0 - 103.0 fL 01/07/2017 5:27 AM [facility] MCH 24.6(L) 27.0 - 34.0 pg 01/07/2017 5:27 AM [facility] MCHC 31.0 30.0 - 35.0 g/dL 01/07/2017 5:27 AM [facility] RDW 17.2(H) 11.0 - 14.5 % 01/07/2017 5:27 AM [facility] RDW-STDEV 49.4 37.0 - 54.0 fL 01/07/2017 5:27 AM [facility] PLATELETS 545(H) 140 - 440 K/uL 01/07/2017 5:27 AM [facility] MPV 10.2 8.9 - 12.8 fL 01/07/2017 5:27 AM [facility] NEUTROPHILS 53 42 - 75 % 01/07/2017 5:27 AM [facility] LYMPHOCYTES 26 24 - 44 % 01/07/2017 5:27 AM [facility] MONOCYTES 9 2 - 10 % 01/07/2017 5:27 AM [facility] EOSINOPHILS 11(H) 0 - 7 % 01/07/2017 5:27 AM [facility] BASOPHILS 1 0 - 1 % 01/07/2017 5:27 AM [facility] IMMATURE GRANULOCYTES 0 0 - 2 % 01/07/2017 5:27 AM [facility] NEUTROPHIL ABSOLUTE 4.88 2.00 - 8.00 K/uL 01/07/2017 5:27 AM [facility] LYMPHOCYTE ABSOLUTE 2.45 1.20 - 4.00 K/uL 01/07/2017 5:27 AM [facility] MONOCYTE ABSOLUTE 0.79(H) 0.10 - 0.60 K/uL 01/07/2017 5:27 AM CDT [facility] LABORATORY [facility] EOSINOPHIL ABSOLUTE 1.01(H) 0.00 - 0.70 K/uL 01/07/2017 5:27 AM CDT [facility] BASOPHILS ABSOLUTE 0.11 0.00 - 0.20 K/uL 01/07/2017 5:27 AM CDT [facility] IMMATURE GRANULOCYTES ABSOLUTE 0.04 0.00 - 0.10 K/uL 01/07/2017 5:27 AM CDT [facility] Blood 01/07/2017 2:23 AM CDT 01/07/2017 5:01 AM CDT us Izabela Diamond MD HEMATOLOGY ORDERABLES Final Re sult [facility] CLIA# [id number] [address] [place] [address] documented in this encounter Visit Diagnoses Not on filedocumented in this encounter Care Teams Photo Journalist Relationship Specialty Start Date End Date Shravan Jones DO PCP - General Family Practice 12/04/16 documented as of this encounter
--- OUTSIDE RECORDS SUMMARY | 2025-06-13 15:28 | XMS_ITS | Encounter Summary ---
Author Organization [facility] Address [address] [place] [address] Care Team Providers Care Provider Relations Representative Name Role Phone Shravan Jones DO Primary Care Provider [phone]- [phone] Encounter Details Date Type Department Care Team (Late st Contact Info) Description 01/02/2017 Lab Requisition [facility] Laboratory Services [address] [place] [address] Izabela Diamond MD NO ADDRESS ON FILE Social History Tobacco Use Types Packs/Day Years Used Date Smoking Tobacco: Every Day Cigarettes Comments:pt lethargic Comments Unknown Sex and Gender Information Value Date Recorded Sex Assigned at Not on file 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 Gender Identity Not on file Sexual Orientation [...] - 145 mmol/L 01/02/2017 6:07 AM CDT [facility] [email or web address] [facility] POTASSIUM 4.3 3.5 - 5.1 mmol/L 01/02/2017 6:07 AM CDT [facility] CHLORIDE 101 98 - 107 mmol/L 01/02/2017 6:07 AM T [facility] CO2 27 21 - 32 mmol/L 01/02/2017 6:07 AM T [facility] CALCIUM 9.7 8.4 - 10.1 mg/dL 01/02/2017 6:07 AM T [facility] BUN 16 7 - 17 mg/dL 01/02/2017 6:07 AM [facility] CREATININE 0.87 0.55 - 1.02 mg/dL 01/02/2017 6:07 AM T [facility] GLUCOSE 122(H) 74 - 106 mg/dL 01/02/2017 6:07 AM [facility] GFR >60 >=60 mL/min/1.7 3 sq meter 01/02/2017 6:07 AM T [facility] Comment: eGFR [...] 3 sq meter 01/02/2017 6:07 AM CDT [facility] ANION GAP 10 4 - 30 mmol/L 01/02/2017 6:07 AM T [facility] Blood 01/02/2017 3:00 AM CDT 01/02/2017 5:35 AM CDT us Izabela Diamond MD CHEMISTRY ORDERABLES Final Res ult [facility] CLIA# [id number] [address] [place] [phone] * (ABNORMAL) CBC WITH DIFFERENTIAL (01/02/2017 3:00 AM CDT) [facility] WBC 10.4 4.5 - 11.0 K/uL 01/02/2017 5:44 AM [facility] RBC 4.30 4.20 - 5.40 M/uL 01/02/2017 5:44 AM [facility] HEMOGLOBIN 10.4(L) 12.0 - 16.0 g/dL 01/02/2017 5:44 AM [facility] HEMATOCRIT 34.5(L) 36.0 - 46.0 % 01/02/2017 5:44 AM [facility] MCV 80.2(L) 84.0 - 103.0 fL 01/02/2017 5:44 AM [facility] MCH 24.2(L) 27.0 - 34.0 pg 01/02/2017 5:44 AM [facility] MCHC 30.1 30.0 - 35.0 g/dL 01/02/2017 5:44 AM [facility] RDW 17.4(H) 11.0 - 14.5 % 01/02/2017 5:44 AM [facility] RDW-STDEV 51.1 37.0 - 54.0 fL 01/02/2017 5:44 AM [facility] PLATELETS 764(H) 140 - 440 K/uL 01/02/2017 5:44 AM [facility] MPV 9.2 8.9 - 12.8 fL 01/02/2017 5:44 AM [facility] NEUTROPHILS 56 42 - 75 % 01/02/2017 5:44 AM [facility] LYMPHOCYTES 27 24 - 44 % 01/02/2017 5:44 AM [facility] MONOCYTES 8 2 - 10 % 01/02/2017 5:44 AM [facility] EOSINOPHILS 7 0 - 7 % 01/02/2017 5:44 AM [facility] BASOPHILS 1 0 - 1 % 01/02/2017 5:44 AM [facility] IMMATURE GRANULOCYTES 1 0 - 2 % 01/02/2017 5:44 AM CDT [facility] NEUTROPHIL ABSOLUTE 5.79 2.00 - 8.00 K/uL 01/02/2017 5:44 AM CDT [facility] LYMPHOCYTE ABSOLUTE 2.78 1.20 - 4.00 K/uL 01/02/2017 5:44 AM CDT [facility] MONOCYTE ABSOLUTE 0.85(H) 0.10 - 0.60 K/uL 01/02/2017 5:44 AM CDT [facility] EOSINOPHIL ABSOLUTE 0.76(H) 0.00 - 0.70 K/uL 01/02/2017 5:44 AM CDT [facility] BASOPHILS ABSOLUTE 0.10 0.00 - 0.20 K/uL 01/02/2017 5:44 AM CDT [facility] IMMATURE GRANULOCYTES ABSOLUTE 0.09 0.00 - 0.10 K/uL 01/02/2017 5:44 AM CDT [facility] Blood 01/02/2017 3:00 AM CDT 01/02/2017 5:35 AM CDT us Izabela Diamond MD HEMATOLOGY ORDERABLES Final Re sult [facility] CLIA# [id number] [address] [place] [address] documented in this encounter Visit Diagnoses Not on filedocumented in this encounter Care Teams Provider Relations Representative Relationship Specialty Start Date End Date Shravan Jones DO PCP - General Family Practice 12/04/16 documented as of this encounter
--- OUTSIDE RECORDS SUMMARY | 2025-06-13 15:28 | XMS_ITS | Encounter Summary ---
Author Organization [facility] Address [address] [place] [address] Care Team Providers Care Power And Recovery Supervisor Name Role Phone Shravan Jones DO Primary Care Provider [phone] Encounter Details Date Type Department Care Team (Late st Contact Info) Description 12/31/2016 Lab Requisition [facility] Laboratory Services [address] [place] [address] [place] [address] David Ortega MD [address] [place] [address] Social History Tobacco Use Types Packs/Day Years Used Date Smoking Tobacco: Every Day Cigarettes Comments:pt lethargic Comments Unknown Sex and Gender Information Value Date Recorded Sex Assigned at Not on file 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 This will have limited patient impact. us David Ortega MD CHEMISTRY ORDERABLES Final Res ult [facility] CLIA# [id number] [address] [place] [address] * (ABNORMAL) COMPREHENSIVE METABOLIC PANEL (12/31/2016 2:26 AM CDT) SODIUM 138 136 - 145 mmol/L 12/31/2016 5:52 AM CDT [facility] POTASSIUM 4.7 3.5 - 5.1 mmol/L 12/31/2016 5:52 AM [facility] CHLORIDE 102 98 - 107 mmol/L 12/31/2016 5:52 AM T [facility] CO2 27 21 - 32 mmol/L 12/31/2016 5:52 AM T [facility] CALCIUM 9.1 8.4 - 10.1 mg/dL 12/31/2016 5:52 AM T [facility] BUN 17 7 - 17 mg/dL 12/31/2016 5:52 AM T [facility] CREATININE 0.87 0.55 - 1.02 mg/dL 12/31/2016 5:52 AM T [facility] GLUCOSE 214(H) 74 - 106 mg/dL 12/31/2016 5:52 AM T [facility] TOTAL PROTEIN 8.2 6.4 - 8.2 g/dL 12/31/2016 5:52 AM T [facility] ALBUMIN 1.9(L) 3.4 - 5.0 g/dL 12/31/2016 5:52 AM CDT [facility] BILIRUBIN TOTAL 0.2 0.2 - 1.0 mg/dL 12/31/2016 5:52 AM CDT [facility] ALKALINE PHOSPHATASE 95 25 - 100 U/L 12/31/2016 5:52 AM CDT [facility] AST 9(L) 15 - 37 U/L 12/31/2016 5:52 AM CDT [facility] ALT 14 13 - 61 U/L 12/31/2016 5:52 AM CDT [facility] GFR >60 >=60 mL/min/1.7 3 sq meter 12/31/2016 5:52 AM T [facility] Comment: eGFR has not been [...] 3 sq meter 12/31/2016 5:52 AM CDT [facility] ANION GAP 9 4 - 30 mmol/L 12/31/2016 5:52 AM T [facility] Blood 12/31/2016 2:26 AM CDT 12/31/2016 5:17 AM CDT us David Ortega MD CHEMISTRY ORDERABLES Final Res ult [facility] CLIA# [id number] [address] [place] [address] * (ABNORMAL) CBC WITH DIFFERENTIAL (12/31/2016 2:26 AM CDT) WBC 13.7(H) 4.5 - 11.0 K/uL 12/31/2016 6:32 AM [facility] RBC 3.66(L) 4.20 - 5.40 M/uL 12/31/2016 6:32 AM [facility] HEMOGLOBIN 9.3(L) 12.0 - 16.0 g/dL 12/31/2016 6:32 AM [facility] [employer] [facility] HEMATOCRIT 29.6(L) 36.0 - 46.0 % 12/31/2016 6:32 AM [facility] [employer] [facility] MCV 80.9(L) 84.0 - 103.0 fL 12/31/2016 6:32 AM [facility] [employer] [facility] MCH 25.4(L) 27.0 - 34.0 pg 12/31/2016 6:32 AM [facility] MCHC 31.4 30.0 - 35.0 g/dL 12/31/2016 6:32 AM [facility] [employer] [facility] RDW 17.4(H) 11.0 - 14.5 % 12/31/2016 6:32 AM [facility] [employer] [facility] RDW-STDEV 52.1 37.0 - 54.0 fL 12/31/2016 6:32 AM [facility] [employer] [facility] PLATELETS 767(H) 140 - 440 K/uL 12/31/2016 6:32 AM [facility] [employer] [facility] MPV 9.0 8.9 - 12.8 fL 12/31/2016 6:32 AM [facility] [employer] [facility] NEUTROPHILS 68 42 - 75 % 12/31/2016 6:32 AM [facility] [employer] [facility] LYMPHOCYTES 17(L) 24 - 44 % 12/31/2016 6:32 AM [facility] [employer] [facility] MONOCYTES 8 2 - 10 % 12/31/2016 6:32 AM [facility] [employer] [facility] EOSINOPHILS 6 0 - 7 % 12/31/2016 6:32 AM [facility] [employer] [facility] BASOPHILS 0 0 - 1 % 12/31/2016 6:32 AM [facility] [employer] [facility] IMMATURE GRANULOCYTES 1 0 - 2 % 12/31/2016 6:32 AM CDT [facility] NEUTROPHIL ABSOLUTE 9.26(H) 2.00 - 8.00 K/uL 12/31/2016 6:32 AM CDT [facility] LYMPHOCYTE ABSOLUTE 2.28 1.20 - 4.00 K/uL 12/31/2016 6:32 AM CDT [facility] MONOCYTE ABSOLUTE 1.07(H) 0.10 - 0.60 K/uL 12/31/2016 6:32 AM CDT [facility] EOSINOPHIL ABSOLUTE 0.82(H) 0.00 - 0.70 K/uL 12/31/2016 6:32 AM CDT [facility] BASOPHILS ABSOLUTE 0.06 0.00 - 0.20 K/uL 12/31/2016 6:32 AM CDT [facility] IMMATURE GRANULOCYTES ABSOLUTE 0.17(H) 0.00 - 0.10 K/uL 12/31/2016 6:32 AM CDT [facility] Blood 12/31/2016 2:26 AM CDT 12/31/2016 5:17 AM CDT Narrative [facility] - 12/31/2016 6:32 AM CDT Smear reviewed us David Ortega MD HEMATOLOGY ORDERABLES Final Re sult [facility] CLIA# [id number] [address] [place] [address] documented in this encounter Visit Diagnoses Not on filedocumented in this encounter Care Teams Power And Recovery Supervisor Relationship Specialty Start Date End Date Shravan Jones DO PCP - General Family Practice 12/04/16 documented as of this encounter
--- OUTSIDE RECORDS SUMMARY | 2025-06-13 15:28 | XMS_ITS | Encounter Summary ---
Author Organization [facility] Address [address] [place] [address] Care Team Providers Care Ceramics Engineer Name Role Phone Shravan Jones DO Primary Care Provider [phone] Encounter Details Date Type Department Care Team (Late st Contact Info) Description 01/07/2017 Lab Requisition [facility] Laboratory Services [address] [place] [address] [place] [address] David Ortega MD [address] [place] [address] Social History Tobacco Use Types Packs/Day Years Used Date Smoking Tobacco: Every Day Cigarettes Comments:pt lethargic Comments Unknown Sex and Gender Information Value Date Recorded Sex Assigned at Not on file 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
[2025-06-13 15:33] VITALS: BP 165/77; PULSE 78; RESP 18; TEMP 36.7; O2SAT 99; BMI 27.7
--- NOTE | 2025-06-13 16:40 | W.ED.BACK ---
HPI - Back Pain/Injury General: Chief Complaint: Back Pain/Injury Stated Complaint: R side Lower Pain Time Seen by Provider: 06/13/25 16:37 Source: patient Mode of arrival: ambulatory Limitations: no limitations History of Present Illness: 39-year-old female states that has been having right sided low back pain since this morning. States its been a sharp pain worse with palpation and movement. patient denies any fevers denies any dysuria she denies any vomiting or diarrhea Related Data Home Medications ?Medication ?Instructions ?Recorded ?Confirmed gabapentin 100 mg capsule 100 mg PO TID 12/27/23 05/10/25 clopidogrel 75 mg tablet 75 mg PO DAILY 04/28/24 05/10/25 escitalopram oxalate 20 mg tablet 20 mg PO DAILY anxiety 02/14/25 05/10/25 folic acid 1 mg tablet 1 mg PO DAILY 02/14/25 05/10/25 hydralazine 25 mg tablet 12.5 mg PO BID 02/14/25 05/10/25 nitroglycerin 0.4 mg sublingual See Rx Instructions .Route .COMPLEX 02/22/25 05/10/25 tablet cyclobenzaprine 10 mg tablet 10 mg PO TID PRN MUSCLE SPASM 04/22/25 05/10/25 tramadol 50 mg tablet 50 mg PO DAILY 04/22/25 05/10/25 Previous Rx's ?Medication ?Instructions ?Recorded blood-glucose sensor (Dexcom G6 #3 ea 06/12/22 Sensor device) blood-glucose transmitter (Dexcom #1 ea 06/12/22 G6 Transmitter device) blood-glucose,application infrastructure engineer,cont #1 ea 06/12/22 (Dexcom G6 Needle Molder) sevelamer carbonate 800 mg tablet 800 mg PO TID #90 tabs 09/16/23 aspirin 81 mg tablet,delayed 81 mg PO QAM 30 days #30 tabs 03/28/24 release atorvastatin 40 mg tablet 40 mg PO BEDTIME 30 days #30 tabs 03/28/24 AFO brace #1 ea 04/20/24 diabetic shoes with 3 inserts #1 ea 04/20/24 amlodipine 5 mg tablet 5 mg PO DAILY #30 tabs 09/30/24 colchicine 0.6 mg tablet 0.6 mg PO DAILY #30 tabs 04/23/25 isosorbide mononitrate 60 mg 60 mg PO DAILY #30 tabs 04/23/25 tablet,extended release 24 hr metoclopramide HCl 5 mg tablet 5 mg PO Q8H PRN nausea and 05/23/25 (Reglan) vomiting #20 tabs sodium polystyrene sulfonate 15 15 g PO DAILY #150 grams 05/23/25 gram oral powder insulin aspart U-100 100 unit/mL See Rx Instructions .Route 06/03/25 subcutaneous solution (Novolog .COMPLEX #10 mL U-100 Insulin aspart) clindamycin HCl 300 mg capsule 300 mg PO BID 7 days #14 caps 06/07/25 methocarbamol 750 mg tablet 750 mg PO Q6H PRN spasms #20 tabs 06/13/25 naproxen 500 mg tablet (Naprosyn) 500 mg PO BID PRN pain #20 tabs 06/13/25 Allergies Allergy/AdvReac Type Severity Reaction Status Date / Time acetaminophen AdvReac Mild ADR-Gastrointestinal Verified 05/30/25 22:14 Upset Review of Systems Musc: Reports: back pain PFS ED PFSH: Medical History (Updated 06/13/25 @ 16:41 by Ronny Ayala MD) Insulin dependent diabetes mellitus with complications Chest pain Diabetes mellitus Primary hypertension HTN (hypertension), benign Hyperkalemia Headache Accelerated hypertension Uncontrolled type 1 diabetes mellitus ESRD (end stage renal disease) Dialysis complication Hypoglycemia Hemodialysis catheter dysfunction Colitis End stage renal disease on dialysis COPD (chronic obstructive pulmonary disease) Transaminitis Intractable nausea and vomiting Hyperlipidemia CHF (congestive heart failure), NYHA class III Pulmonary hypertension 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, unspecified vessel or lesion type Neurogenic bladder COVID-19 Tobacco dependence Drug abuse Anemia Community acquired pneumonia Esophagitis Long-term insulin use History of pancreatitis Celiac disease Recurrent UTI Non-alcoholic fatty liver disease Arnold-Chiari malformation Diabetic gastroparesis -continue Reglan Diabetic neuropathy associated with type 1 diabetes mellitus Headache, common migraine, intractable, with status migrainosus Pleural effusion 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 History of lung surgery -s/p LLL lobectomy secondary to cavitary pneumonia (2017) History of endoscopy History of cholecystectomy Family History Grandfather Diabetes Mother CAD (coronary artery disease) Diabetes Heart disease Hypertension Brother Acute lymphoblastic leukemia (ALL) in child Grandmother Thyroid disease Denies family history of Colon cancer Ovarian cancer Prostate cancer Hyperlipidemia Breast cancer Uterine cancer Stroke Social History Smoking and tobacco/nicotine status: former use of tobacco/nicotine Quit status (tobacco/nicotine): has quit using Former quit date comment: She previously smoked <1/2 PPD, quit July 2023. 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 [employer] Female Reproductive History: Spontaneous abortions: No Physical Exam Const: COMMON NORMALS: no acute distress, patient oriented x3 and healthy appearing HENMT: COMMON NORMALS: normocephalic and atraumatic HEAD & SCALP: normocephalic and atraumatic Neck/C-Spine: COMMON NORMALS: full ROM and supple Chest: COMMONS NORMALS: normal inspection of the chest Resp: COMMON NORMALS: normal respiratory effort Cardio: COMMON NORMALS: regular rate RATE: regular rate Back/Pelvis: OTHER: tenderness over right lower back no midline tenderness no saddle anesthesia Extremity: COMMON NORMALS: normal to inspection and full ROM Neuro: COMMON NORMALS: patient oriented x3, moves all extremities and no focal motor deficits Psych: COMMON NORMALS: mental status grossly normal, Normal thought process present and cooperative THOUGHT PROCESS: Normal thought process present Skin: COMMON NORMALS: no rashes or lesions noted and no wounds GENERAL SKIN EXAM: no rashes or lesions noted Course Vital Signs: Vital signs: Vital Signs Temperature 98.1 F 06/13/25 15:33 Pulse Rate 78 06/13/25 15:33 Respiratory Rate 18 06/13/25 15:33 Blood Pressure 165/77 06/13/25 15:33 Pulse Oximetry 99 06/13/25 15:33 Oxygen Delivery Me thod Room Air 06/13/25 15:33 MDM - Back Pain/Injury Medical Decision Making Patient presents here with back pain likely muscular in nature she is point tender on exam no midline tenderness. No saddle anesthesia no bowel or bladder incontinence she has no signs of cauda equina or epidural abscess. Did give her Toradol here along with Robaxin will prescribe her Naprosyn Robaxin for home she is stable for discharge return if worsening. Medical Records I reviewed the patient's medical records. No radiology studies performed this visit Discharge Plan Discharge Patient Disposition: Home Clinical Impression: Low back pain Condition: Stable Prescriptions: New methocarbamol 750 mg tablet 750 mg PO Q6H PRN (Reason: spasms) Qty: 20 0RF naproxen [Naprosyn] 500 mg tablet 500 mg PO BID PRN (Reason: pain) Qty: 20 0RF No Action (DME) AFO brace See Rx Instructions .Route .MEDSUPPLY Qty: 1 0RF Rx Instructions: As directed to the shoe guys ([facility] [place]) diabetic shoes with 3 inserts See Rx Instructions .Route .MEDSUPPLY Qty: 1 0RF Rx Instructions: As directed to the shoe guys ([facility] [place]) Dexcom G6 Needle Molder Misc See Rx Instructions .Route Qty: 1 0RF Rx Instructions: As directed (DME) Dexcom G6 Sensor Device See Rx Instructions .Route Qty: 3 0RF Rx Instructions: As directed ([facility] [place]) Dexcom G6 Transmitter Device See Rx Instructions .Route Qty: 1 0RF Rx Instructions: As directed insulin aspart U-100 [Novolog U-100 Insulin aspart] 100 unit/mL solution See Rx Instructions .ROUTE .COMPLEX MDD 35 units Qty: 10 0RF Rx Instructions: 35 units daily via insulin pump; atorvastatin 40 mg tablet 40 mg PO BEDTIME 30 Days Qty: 30 0RF aspirin 81 mg tablet,delayed release (DR/EC) 81 mg PO QAM 30 Days Qty: 30 0RF amlodipine 5 mg Tablet 5 mg PO DAILY Qty: 30 0RF sodium polystyrene sulfonate 15 gram powder 15 g PO DAILY Qty: 150 0RF metoclopramide HCl [Reglan] 5 mg tablet 5 mg PO Q8H PRN (Reason: nausea and vomiting) Qty: 20 0RF clindamycin HCl 300 mg capsule 300 mg PO BID 7 Days Qty: 14 0RF sevelamer carbonate 800 mg Tablet 800 mg PO TID Qty: 90 0RF gabapentin 100 mg Capsule 100 mg PO TID clopidogrel 75 mg tablet 75 mg PO DAILY hydralazine 25 mg tablet 12.5 mg PO BID folic acid 1 mg tablet 1 mg PO DAILY escitalopram oxalate 20 mg tablet 20 mg PO DAILY nitroglycerin 0.4 mg tablet, sublingual See Rx Instructions .ROUTE .COMPLEX Rx Instructions: DISSOLVE ONE TABLET UNDER THE TONGUE EVERY 5 MINUTES NEEDED FOR CHEST PAIN. DO NOT EXCEED A TOTAL OF 3 DOSES IN 15 MINUTES. tramadol 50 mg tablet 50 mg PO DAILY cyclobenzaprine 10 mg tablet 10 mg PO TID PRN (Reason: MUSCLE SPASM ) colchicine 0.6 mg tablet 0.6 mg PO DAILY Qty: 30 0RF isosorbide mononitrate 60 mg tablet extended release 24 hr 60 mg PO DAILY Qty: 30 0RF Discharge Orders: Discharge ED (Routine); Ordered 06/13/25 Ordered By: Ronny Ayala Referrals: Elizabeth Dougherty FNP [Primary Care Provider, Unknown] Discharge Diet: Advance as tolerated Discharge Activity: Resume usual activity Patient Instructions: Back Pain (ED) Print Language: French Coding Level of Care Code ED Trumpet Teacher for Reji Chandler
[2025-06-13 17:02] VITALS: BP 150/90; PULSE 92; O2SAT 95
== END 2025-06-13 17:04 | disposition home or self-care (01) ==
PROVIDERS: Emergency Provider Emergency Medicine; PCP Nurse Practitioner Family
DX: M54.50 Low back pain, unspecified (principal); Z79.4 Long term (current) use of insulin; Z79.82 Long term (current) use of aspirin; Z79.02 Long term (current) use of antithrombotics/antiplatelets; Z87.891 Personal history of nicotine dependence; E10.22 Type 1 diabetes mellitus with diabetic chronic kidney disease; I13.2 Hypertensive heart and chronic kidney disease with heart failure and with stage 5 chronic kidney disease, or end stage renal disease; I50.9 Heart failure, unspecified; N18.6 End stage renal disease; Z99.2 Dependence on renal dialysis; J44.9 Chronic obstructive pulmonary disease, unspecified; I25.119 Atherosclerotic heart disease of native coronary artery with unspecified angina pectoris; E78.5 Hyperlipidemia, unspecified
CPT/HCPCS: 96372; 99284; J1885; J9999

== ENCOUNTER 2025-06-14 07:58 | Emergency (ER) | payer MEDICARE, MEDICAID, SELFPAY ==
[2025-06-14 07:58] VITALS: BP 189/109; PULSE 85; RESP 16; TEMP 36.8; O2SAT 98; BMI 27.3
--- NOTE | 2025-06-14 08:00 | ECG_ITS ---
[facility] Test Date: 2025-06-14 Pat Name: Donita Aguilar Department: Room: Gender: Female Roving Tester Laboratory: : 1985 Requested By: Dawna Nick Order Number: [id number] Faviola MD: JOSEFA TALLEY Measurements Intervals [place] Rate: 82 P: 76 SC: 182 QRS: 25 QRSD: 106 T: 30 QT: 412 QTc: 483 Interpretive Statements SINUS RHYTHM POSSIBLE RIGHT ATRIAL ENLARGEMENT [0.25mV P-WAVE] Compared to ECG 06/06/2025 22:59:59 Myocardial infarct finding no longer present Electronically Signed On 06-15-2025 11:59:37 COMMUNITY DEVELOPMENT COORDINATOR by JOSEFA TALLEY [email or web address]
--- NOTE | 2025-06-14 08:00 | XR_ITS ---
WS: [id number] Portable AP upright chest, 06/14/2025 Clinical Data: chest pain Comparison: Portable chest, 06/06/2025 Findings: No nodules, masses or effusions are seen. The heart is normal. The pulmonary vascularity is not increased. No pneumonia or pneumothorax is seen. The diaphragms are flattened. There is widening between the left fifth and sixth ribs consistent with previous thoracotomy. XR/XR chest 1V portable [id number] Impression: Prior left thoracotomy.
--- NOTE | 2025-06-14 08:04 | W.ED.CHESTPA ---
HPI - Chest Pain General: Chief Complaint: Chest Pain Stated Complaint: CHEST PAIN Time Seen by Provider: 06/14/25 07:58 History of Present Illness: 39-year-old female with a history of end-stage renal disease on dialysis, diabetes, hypertension, CHF, coronary artery disease status post 8 stents, pulmonary hypertension, gastroparesis who presents to the emergency room with chest pain. She complains of central chest pain. Substernal. This started while she was in dialysis. She still had 2 hours of dialysis left. She received nitroglycerin and aspirin with no improvement in pain. She received multiple nitro and this did not help her pain. No cough. No fevers. No altered mental status. No vomiting Related Data Home Medications ?Medication ?Instructions ?Recorded ?Confirmed gabapentin 100 mg capsule 100 mg PO TID 12/27/23 06/14/25 clopidogrel 75 mg tablet 75 mg PO DAILY 04/28/24 06/14/25 escitalopram oxalate 20 mg tablet 20 mg PO DAILY anxiety 02/14/25 06/14/25 folic acid 1 mg tablet 1 mg PO DAILY 02/14/25 06/14/25 hydralazine 25 mg tablet 12.5 mg PO BID 02/14/25 06/14/25 nitroglycerin 0.4 mg sublingual See Rx Instructions .Route .COMPLEX 02/22/25 06/14/25 tablet cyclobenzaprine 10 mg tablet 10 mg PO TID PRN MUSCLE SPASM 04/22/25 06/14/25 tramadol 50 mg tablet 50 mg PO DAILY 04/22/25 06/14/25 bumetanide 1 mg tablet 1 mg PO DAILY 06/14/25 06/14/25 clindamycin HCl 300 mg capsule 300 mg PO BID x7days 06/14/25 06/14/25 diphenhydramine HCl 25 mg capsule 25 mg PO TID PRN itching/rash 06/14/25 06/14/25 (Benadryl) hydroxyzine HCl 25 mg tablet 25 mg PO BID 06/14/25 06/14/25 sodium polystyrene sulfonate 15 15 g PO DAILY PRN elevated 06/14/25 06/14/25 gram oral powder potassium Previous Rx's ?Medication ?Instructions ?Recorded blood-glucose sensor (iMapData G6 #3 ea 06/12/22 Sensor device) blood-glucose transmitter (Dexcom #1 ea 06/12/22 G6 Transmitter device) blood-glucose,pyrometallurgical engineer,cont #1 ea 06/12/22 (Dexcom G6 Restaurant Maintenance Technician) sevelamer carbonate 800 mg tablet 800 mg PO TID #90 tabs 09/16/23 aspirin 81 mg tablet,delayed 81 mg PO QAM 30 days #30 tabs 03/28/24 release atorvastatin 40 mg tablet 40 mg PO BEDTIME 30 days #30 tabs 03/28/24 AFO brace #1 ea 04/20/24 diabetic shoes with 3 inserts #1 ea 04/20/24 amlodipine 5 mg tablet 5 mg PO DAILY #30 tabs 09/30/24 colchicine 0.6 mg tablet 0.6 mg PO DAILY #30 tabs 04/23/25 isosorbide mononitrate 60 mg 60 mg PO DAILY #30 tabs 04/23/25 tablet,extended release 24 hr metoclopramide HCl 5 mg tablet 5 mg PO Q8H PRN nausea and 05/23/25 (Reglan) vomiting #20 tabs insulin aspart U-100 100 unit/mL See Rx Instructions .Route 06/03/25 subcutaneous solution (Novolog .COMPLEX #10 mL U-100 Insulin aspart) methocarbamol 750 mg tablet 750 mg PO Q6H PRN spasms #20 tabs 06/13/25 naproxen 500 mg tablet (Naprosyn) 500 mg PO BID PRN pain #20 tabs 06/13/25 Allergies Allergy/AdvReac Type Severity Reaction Status Date / Time acetaminophen AdvReac Mild ADR-Gastrointestinal Verified 05/30/25 22:14 Upset Review of Systems Narrative: Constitutional symptoms: Negative except as documented in HPI. Skin symptoms: Negative except as documented in HPI. Eye symptoms: Negative except as documented in HPI. ENMT symptoms: Negative except as documented in HPI. Respiratory symptoms: Negative except as documented in HPI. Cardiovascular symptoms: Negative except as documented in HPI. Gastrointestinal symptoms: Negative except as documented in HPI. Genitourinary symptoms: Negative except as documented in HPI. Musculoskeletal symptoms: Negative except as documented in HPI. Neurologic symptoms: Negative except as documented in HPI. Psychiatric symptoms: Negative except as documented in HPI. Endocrine symptoms: Negative except as documented in HPI. [facility] ED PFSH: Medical History (Updated 06/14/25 @ 10:29 by Dawna Briceno MD) Insulin dependent diabetes mellitus with complications Chest pain Diabetes mellitus Primary hypertension HTN (hypertension), benign Hyperkalemia Headache Accelerated hypertension Uncontrolled type 1 diabetes mellitus ESRD (end stage renal disease) Dialysis complication Hypoglycemia Hemodialysis catheter dysfunction Colitis End stage renal disease on dialysis COPD (chronic obstructive pulmonary disease) Transaminitis Intractable nausea and vomiting Hyperlipidemia CHF (congestive heart failure), NYHA class III Pulmonary hypertension Coronary artery disease involving t[place] heart with angina pectoris, unspecified vessel or lesion type Neurogenic bladder COVID-19 Tobacco dependence Drug abuse Anemia Community acquired pneumonia Esophagitis Long-term insulin use History of pancreatitis Celiac disease Recurrent UTI Non-alcoholic fatty liver disease Arnold-Chiari malformation Diabetic gastroparesis -continue Reglan Diabetic neuropathy associated with type 1 diabetes mellitus Headache, common migraine, intractable, with status migrainosus Pleural effusion 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 History of lung surgery -s/p LLL lobectomy secondary to cavitary pneumonia (2017) History of endoscopy History of cholecystectomy Family History Grandfather Diabetes Mother CAD (coronary artery disease) Diabetes Heart disease Hypertension Brother Acute lymphoblastic leukemia (ALL) in child Grandmother Thyroid disease Denies family history of Colon cancer Ovarian cancer Prostate cancer Hyperlipidemia Breast cancer Uterine cancer Stroke Social History Smoking and tobacco/nicotine status: former use of tobacco/nicotine Quit status (tobacco/nicotine): has quit using Former quit date comment: She previously smoked <1/2 PPD, quit July 2023. 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 Skin: Warm, dry. Head: Normocephalic, atraumatic. Neck: Supple, trachea midline. Eye: Extraocular movements are intact. Ears, nose, mouth and throat: mucosa moist. Cardiovascular: Regular, Normal peripheral perfusion. Respiratory: Lungs are clear to auscultation, respirations are non-labored, breath sounds are equal, Symmetrical chest wall expansion. Gastrointestinal: Soft, Nontender, Non distended Musculoskeletal: Normal ROM, no deformity. Neurological: Alert and oriented, No focal neurological deficit observed. Psychiatric: Cooperative, appropriate mood & affect. Course Vital Signs: Vital signs: Vital Signs Temperature 98.2 F 06/14/25 07:58 Pulse Rate 75 06/14/25 09:04 Respiratory Rate 16 06/14/25 09:04 Blood Pressure 189/109 06/14/25 07:58 Pulse Oximetry 100 06/14/25 09:04 Oxygen Delivery Me thod Nasal Cannula 06/14/25 09:04 Oxygen Flow Rate 3 06/14/25 07:58 MDM - Chest Pain Medical Decision Making Medical decision making Patient's reason for coming to the emergency room: Chest pain Social determinants: Patient is disabled I reviewed the patient's medical record. 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 unstable angina. angina. Acute coronary syndrome / MS. Pulmonary embolism. Costochondritis / musculoskeletal. Pleurisy. Pericarditis. Esophageal spasm. Pancreatitis. Cholecystitis. Orders placed to evaluate differential diagnosis based on the above differential, HPI and physical exam EKG: Time 8:03 AM. Rate 82. Normal sinus rhythm, No ST-T changes, no ectopy, normal [place] & QRS intervals, This was reviewed and interpreted by myself the ER physician at 8:05 AM Repeat EKG: Time [p9:33 AM. Rate 72. Normal sinus rhythm, No ST-T changes, no ectopy, normal AZ & QRS intervals, This was reviewed and interpreted by myself the ER physician at 9:37 AM. No acute changes from previous. Chest x-ray: Prior thoracotomy. No acute process. No infiltrate. No pneumothorax. This was reviewed and interpreted by myself the emergency room physician. I also reviewed the radiology report. Lab Review: Laboratory results were reviewed and interpreted by myself the emergency room physician. No leukocytosis. No anemia. BUN and creatinine are 18 and 4.1 which would be expected in this dialysis patient. Potassium is not elevated. Initial troponin is elevated at 177 but does not have significant change and is because of her renal failure Assessment of risk: Level of risk: High risk patient. Multiple comorbidities. Hospitalization considerations: Heart score is 4 but this is elevated because of her initial troponin being elevated. Pain is not typical for cardiac. It is sharp. Unimproved with nitroglycerin. She has had multiple recent visits for this. Reexamination: Patient remained stable. No increased work of breathing. No altered mental status. No focal motor deficits. Assessment and plan: Chest pain ?Morphine and Zofran in the emergency room - Discharged home - Discussed plan with patient. Answered any questions. - Evaluation and treatment of this problem were appropriate in the emergency setting. Lab Data 06/14/25 08:10 06/14/25 08:10 Radiology Impressions Chest X-Ray 06/14/25 08:00 Impression: Prior left thoracotomy. Laboratory Results WBC 7.60 10^3/uL (3.29-11.43) 06/14/25 08:10 RBC 4.11 10^6/uL (3.85-5.65) 06/14/25 08:10 Hgb 12.10 g/dL (11.27-16.99) 06/14/25 08:10 Hct 38.1 % (36-47) 06/14/25 08:10 MCV 92.7 fl (85-98) 06/14/25 08:10 MCH 29.4 pg (27-33) 06/14/25 08:10 MCHC 31.8 g/dL (30-55) 06/14/25 08:10 RDW 13.8 % (12.1-15.1) 06/14/25 08:10 Plt Count 164 10^3/cmm (157-399) 06/14/25 08:10 MPV 10.4 fL (7.4-10.4) 06/14/25 08:10 Neut % (Auto) 74.1 % 06/14/25 08:10 Lymph % (Auto) 16.4 % 06/14/25 08:10 [place]oula % (Auto) 4.2 % 06/14/25 08:10 Eos % (Auto) 4.3 % 06/14/25 08:10 Baso % (Auto) 0.7 % 06/14/25 08:10 Neut # (Auto) 5.63 10^3/uL (1.8-7.7) 06/14/25 08:10 Lymph # (Auto) 1.3 10^3/uL (0.8-4.8) 06/14/25 08:10 [place] # (Auto) 0.3 10^3/uL (0.2-0.9) 06/14/25 08:10 Eos # (Auto) 0.3 10^3/uL (0.0-0.8) 06/14/25 08:10 Baso # (Auto) 0.1 10^3/uL (0.0-0.1) 06/14/25 08:10 Nucleated RBC % (auto) 0 % 06/14/25 08:10 Nucleated RBCs # 0.0 /100WBC 06/14/25 08:10 PT 13.70 SECONDS (12.1-14.9) 06/14/25 08:10 INR 0.98 (0.8-1.2) 06/14/25 08:10 APTT 26.3 SECONDS (23.9-36.7) 06/14/25 08:10 Sodium 136 mmol/L (136-145) 06/14/25 08:10 Potassium 4.9 mmol/L (3.5-5.1) 06/14/25 08:10 Chloride 95 mmol/L (98-107) L 06/14/25 08:10 Carbon Dioxide 29 mmol/L (22-29) 06/14/25 08:10 Anion Gap 16.9 (5-19) 06/14/25 08:10 BUN 18 mg/dL (6-20) 06/14/25 08:10 Creatinine 4.1 mg/dL (0.5-0.9) H 06/14/25 08:10 GFR Calculation 12.2 mL/min (90-130) L 06/14/25 08:10 Glucose 198 mg/dL (65-115) H 06/14/25 08:10 Calculated Osmolality 289 mOsm/kg (285-295) 06/14/25 08:10 Calcium 9.0 mg/dL (8.5-10.5) 06/14/25 08:10 Total Bilirubin 0.3 mg/dL (0.15-1.2) 06/14/25 08:10 AST 37 U/L (0-32) H 06/14/25 08:10 ALT 58 U/L (0-33) H 06/14/25 08:10 Alkaline Phosphatase 173 U/L (35-105) H 06/14/25 08:10 Troponin T Baseline 177 ng/L (0-10) H* 06/14/25 08:10 Troponin T 60 Minute 168.2 ng/L (0-10) H 06/14/25 09:29 Delta Troponin T -8.8 ABS# (0-10) L 06/14/25 09:29 NT-Pro-B Natriuret Pep 88728 pg/mL (0-125) H 06/14/25 08:10 Total Protein 7.1 g/dL (6.6-8.7) 06/14/25 08:10 Albumin 4.0 g/dL (3.5-5.2) 06/14/25 08:10 Globulin 3.1 g/dL (1.3-4.6) 06/14/25 08:10 Lipase 23 U/L (13-60) 06/14/25 08:10 All radiology interpretation(s) finalized by discharge Clincial Decision Support The following clinical decision support tools were used to aid in care of the patient HEART Score -> History: Slightly Suspicous, EKG: Normal, Age: Less than 45 yrs, Risk Factors: >/=3 Risk Factors, Troponin: Baseline Trop >45 ng/L. Resulting HEART Score: 4. Discharge Plan Discharge Patient Disposition: Home Clinical Impression: Chest pain, End stage renal disease on dialysis Condition: Stable Prescriptions: No Action (DME) AFO brace See Rx Instructions .Route .MEDSUPPLY Qty: 1 0RF Rx Instructions: As directed to the shoe guys (DME) diabetic shoes with 3 inserts See Rx Instructions .Route .MEDSUPPLY Qty: 1 0RF Rx Instructions: As directed to the edelmira arrieta ([facility] [place]) Dexcom G6 Restaurant Maintenance Technician Misc See Rx Instructions .Route Qty: 1 0RF Rx Instructions: As directed ([facility] [place]) Dexcom G6 Sensor Device See Rx Instructions .Route Qty: 3 0RF Rx Instructions: As directed ([facility] [place]) Dexcom G6 Transmitter Device See Rx Instructions .Route Qty: 1 0RF Rx Instructions: As directed insulin aspart U-100 [Novolog U-100 Insulin aspart] 100 unit/mL solution See Rx Instructions .ROUTE .COMPLEX MDD 35 units Qty: 10 0RF Rx Instructions: 35 units daily via insulin pump; atorvastatin 40 mg tablet 40 mg PO BEDTIME 30 Days Qty: 30 0RF aspirin 81 mg tablet,delayed release (DR/EC) 81 mg PO QAM 30 Days Qty: 30 0RF amlodipine 5 mg Tablet 5 mg PO DAILY Qty: 30 0RF metoclopramide HCl [Reglan] 5 mg tablet 5 mg PO Q8H PRN (Reason: nausea and vomiting) Qty: 20 0RF clindamycin HCl 300 mg capsule 300 mg PO BID diphenhydramine HCl [Benadryl] 25 mg Capsule 25 mg PO TID PRN (Reason: itching/rash) bumetanide 1 mg tablet 1 mg PO DAILY Rx Instructions: on non dialysis days hydroxyzine HCl 25 mg tablet 25 mg PO BID sodium polystyrene sulfonate 15 gram powder 15 g PO DAILY PRN (Reason: elevated potassium) sevelamer carbonate 800 mg Tablet 800 mg PO TID Qty: 90 0RF gabapentin 100 mg Capsule 100 mg PO TID clopidogrel 75 mg tablet 75 mg PO DAILY hydralazine 25 mg tablet 12.5 mg PO BID folic acid 1 mg tablet 1 mg PO DAILY escitalopram oxalate 20 mg tablet 20 mg PO DAILY nitroglycerin 0.4 mg tablet, sublingual See Rx Instructions .ROUTE .COMPLEX Rx Instructions: DISSOLVE ONE TABLET UNDER THE TONGUE EVERY 5 MINUTES NEEDED FOR CHEST PAIN. DO NOT EXCEED A TOTAL OF 3 DOSES IN 15 MINUTES. tramadol 50 mg tablet 50 mg PO DAILY cyclobenzaprine 10 mg tablet 10 mg PO TID PRN (Reason: MUSCLE SPASM ) colchicine 0.6 mg tablet 0.6 mg PO DAILY Qty: 30 0RF isosorbide mononitrate 60 mg tablet extended release 24 hr 60 mg PO DAILY Qty: 30 0RF methocarbamol 750 mg tablet 750 mg PO Q6H PRN (Reason: spasms) Qty: 20 0RF naproxen [Naprosyn] 500 mg tablet 500 mg PO BID PRN (Reason: pain) Qty: 20 0RF Discharge Orders: Discharge ED (Routine); Ordered 06/14/25 Ordered By: Dawna Briceno Referrals: Elizabeth Dougherty, LINE CLEANER [Primary Care Provider, Unknown] Discharge Diet: Usual diet Discharge Activity: Increase activity as tolerated Patient Instructions: Chest Pain (ED), Opioid Safety, Pain Management, Patient Portal & [place] Instructions Activity Restrictions/Additional Instructions: Thank you for choosing [facility] for your healthcare needs today. You have been screened and evaluated and felt safe for discharge. Health conditions do change or evolve sometimes and as such it is important that you follow up with your Primary Doctor to be re checked, 3-5 days is a general good time frame for follow up. You are always welcome to return to the ED for re assessment if your symptoms are worsening or you have new concerns. (Please note that included in your discharge packet is information concerning opioid safety and pain management. This information is given to all patients who are discharged from the ER regardless of their discharge diagnosis or the medicines they usually take or are prescribed.) Print Language: Guatemalan Coding Level of Care Code ED Spd Tech for Reji Chandler Heart Score HEART Score Components History: Slightly Suspicous EKG: Normal Age: Less than 45 yrs Risk Factors: >/=3 Risk Factors Troponin: Baseline Trop >45 ng/L HEART Score RESULT HEART Score: 4
--- OUTSIDE RECORDS SUMMARY | 2025-06-14 08:09 | XMS_ITS | Encounter Summary ---
Author Organization [facility], [facility] Address [address] [place] [address] Phone Care Team Providers Care Rubber Heel And Sole Press Tender Name Role Phone Alexis Garcia MD Primary Care Provider Encounter Details Date Type Department Care Team (Late st Contact Info) Description 06/10/2025 Orders Only [facility] [address] [place] [address] Chey Navas MD [address] [place] [address] Social History Tobacco Use Types [...] (06/10/2025) Hemoglobin 10.6(L) 11.7 - 14.0 g/dL [facility] 06/10/2025 06/09/2025 11: 21 AM 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 Narrative Resulting Agency Comment Performing Organization Information: Site ID: [id number] Name: [id number] Address: [address] [address] Director: Jennifer De Jesus MD us Chey Navas MD LAB BLOOD ORDERABLES Final Re sult [facility] [address] [place] [address] documented in this encounter Visit Diagnoses Not on filedocumented in this encounter Care Teams Rubber Heel And Sole Press Tender Relationship Specialty Start Date End Date Alexis Garcia MD [address] [place] [address] PCP - General Family Medicine 04/16/22 documented as of this encounter
--- OUTSIDE RECORDS SUMMARY | 2025-06-14 08:09 | XMS_ITS | Clinical Summary ---
Author Organization [facility] Facility Address [address] [address] Care Team Providers Care Electric Truck Operator Name Role Phone Alexis Garcia MD Primary Care Provider [phone] Encounters Date Type Department Care Team Description 06/10/2025 Orders Only [facility] [employer], [facility] [address] [place] [address] Chey Navas MD 06/08/[address] [place] [address] [employer], [facility] [address] [place] [phone] Karlene Cespedes NP End stage renal disease; Dependence on renal dialysis 06/03/2025 Orders Only [facility], [facility] [address] [place] [address] Chey Navas MD 06/01/[address] [place] [address] [employer], [facility] [address] [place] [address] Karlene Cespedes NP End stage renal disease; Dependence on renal dialysis 05/27/2025 Orders Only [facility] [employer], [facility] [address] [place] [phone] Chey Navas MD 05/25/2025 [facility] [employer], [facility] [address] [place] [address] Melissa Wiley NP Secondary hyperaldosteronism; Protein-calorie malnutrition; End stage renal disease; Dependence on renal dialysis 05/19/2025 Orders Only [facility] [employer], [facility] [address] [place] [phone] Chey Navas MD 05/17/2025 Treatment [facility], [facility] [address] [place] [address] Melissa Wiley, HAYDEE End stage renal disease; Dependence on renal dialysis 05/13/2025 Orders Only [facility], [facility] [address] [place] [address] Chey Navas MD 05/11/2025 Orders Only [facility], [facility] [address] [place] [address] Chey Navas MD 05/11/2025 Treatment [facility], [facility] [address] [place] [address] Chey Navas MD End stage renal disease; Dependence on renal dialysis 05/06/2025 Orders Only [facility], [facility] [address] [place] [address] Chey Navas MD 05/04/2025 Orders Only [facility], [facility] [address] [place] [address] Chey Navas MD 05/04/[address] [place] [address], [facility] [address] [place] [address] Melissa Wiley NP End stage renal disease; Dependence on renal dialysis 04/29/2025 Orders Only [facility], [facility] [address] [place] [address] Chey Navas MD 04/27/[address] [place] [address] [facility], [facility] [address] [place] [address] Melissa Wiley NP End stage renal disease; Dependence on renal dialysis 04/22/2025 Orders Only [facility], [facility] [address] [place] [phone] Chey Navas MD 04/20/[address] [place] [address], [facility] [address] [place] [address] Chey Navas MD End stage renal disease; Dependence on renal dialysis 04/15/2025 Orders Only [facility], [facility] [address] [place] [address] Chey Navas MD 04/13/2025 Orders Only [facility], [facility] [address] [place] [address] Chey Navas MD 04/13/2025 Treatment [facility], [facility] [address] [place] [address] Melissa Wiley NP End stage renal disease; Dependence on renal dialysis 04/01/2025 Orders Only [facility], [facility] [address] [place] [address] Chey Navas MD 03/30/2025 Treatment [facility], [facility] [address] [place] [address] Karlene Cespedes NP End stage renal disease; Dependence on renal dialysis 03/25/[address] [place] [address], [facility] [address] [place] [address] Melissa Wiley NP End stage renal disease; Dependence on renal dialysis 03/25/2025 Orders Only [facility], [facility] [address] [place] [address] Chey Navas MD 03/18/2025 Orders Only [facility], [facility] [address] [place] [address] Chey Navas MD 03/16/[address] [place] [address] [facility] [address] [place] [address] Chey Navas MD End stage [...] [facility] 06/10/2025 06/09/2025 11: 21 AM TITLE I MATH TUTOR Narrative Resulting Agency Comment Performing Organization Information: Site ID: FRANCISCO JAVIER Name: [employer] Address: [address] [place] [phone] Director: Jennifer De Jesus MD Chey Navas MD LAB BLOOD ORDERABLES Final Re sult [facility] [address] * (ABNORMAL) Iron and TIBC (05/27/2025) Only the most recent of2 resultswithin the time period is included. Iron, Total 89 40 - 190 mcg/dL [facility] TIBC 201(L) 250 - 450 mcg/dL (calc) [facility] Iron Saturation (TSat) 44 16 - 45 % (calc) [facility] 05/27/2025 05/26/2025 1:1 3 PM TITLE I MATH TUTOR Narrative Resulting Agency Comment Performing Organization Information: Site ID: FRANCISCO JAVIER Name: [employer] Address: [address] [place] [phone] Director: Jennifer De Jesus MD Chey Navas MD LAB BLOOD ORDERABLES Final Re sult Performing Organization Address [facility] Number [facility] [address] * SPECIMEN INTEGRITY COMPROMISED (05/27/2025) SPECIMEN INTEGRITY COMPROMISED [facility] Comment: Whole blood, unspun or partially spun gel barrier tube was received more than 6 hours since collection. A false elevation of K, Phos and LD as well as a false decrease in glucose may occur due to prolonged contact with red cells. 05/27/2025 05/26/2025 1:1 3 PM TITLE I MATH TUTOR Narrative Resulting Agency Comment Performing Organization Information: Site ID: [place] Name: [facility] Address: [address] [place] [phone] Director: Jennifer De Jesus MD Chey Navas MD LAB BLOOD ORDERABLES Final Re sult Performing Organization Address [facility] Number [facility] [address] * [facility] Results (05/27/2025) Only the most recent of4 resultswithin the time period is included. eKt/V (Tattersall) 1.42 [facility] eKdrt/V 1.41 [facility] WSTDKT/V 2.5 [facility] nPCR_HD 0.63 [facility] eKt/V Gotch 1.41 [facility] PCR 36.52 [facility] spKt/V Gotch 1.67 [facility] ge Center spKt/V (Daugirdas II) 1.66 [facility] eNPCR 0.59 [facility] 05/27/2025 05/27/2025 [facility] [place] LAB BLOOD ORDERABLES Final Result [facility] Contact Performing lab Unknown, [place] * Post Dialysis BUN (05/27/2025) Only the most recent of4 resultswithin the time period is included. BUN Post Dialysis 7 7 - 25 mg/dL [facility] 05/27/2025 05/26/2025 1:1 3 PM TITLE I MATH TUTOR Narrative Resulting Agency Comment Performing Organization Information: Site ID: FRANCISCO JAVIER Name: [employer] [facility] Address: [address] [place] [phone] Director: Jennifer De Jesus MD us Chey Navas MD LAB BLOOD ORDERABLES Final Re sult [facility] [address] [place] [phone] * Differential with WBC (05/27/2025) Only the [...] [facility] 05/27/2025 05/26/2025 1:1 3 PM TITLE I MATH TUTOR Narrative Resulting Agency Comment Performing Organization Information: Site ID: FRANCISCO JAVIER Name: [employer] [facility] Address: [address] [place] [phone] Director: Jennifer De Jesus MD Chey Navas MD LAB BLOOD ORDERABLES Final Re sult Performing Organization Address [facility] Co de Phone Number [facility] [address] [place] [address] * Platelet count (05/27/2025) Only the most recent of2 resultswithin the time period is included. [facility] Platelets 154 140 - 400 Thousand/uL [facility] 05/27/2025 05/26/2025 1:1 3 PM TITLE I MATH TUTOR Narrative Resulting Agency Comment Performing Organization Information: Site ID: [place] Name: [facility] Address: [address] [place] [phone] Director: Jennifer De Jesus MD Chey Navas MD LAB BLOOD ORDERABLES Final Re sult Performing Organization Address [facility] de Phone Number [facility] [address] [place] [address] * (ABNORMAL) CBC (05/27/2025) Only the most recent of2 resultswithin the time period is included. [facility] WBC 6.4 3.8 - 10.8 Thousand/u L [...] [facility] 05/27/2025 05/26/2025 1:1 3 PM TITLE I MATH TUTOR Narrative Resulting Agency Comment Performing Organization Information: Site ID: FRANCISCO JAVIER Name: [facility] Address: [facility] [place] [address] Director: Jennifer De Jesus MD Chey Navas MD LAB BLOOD ORDERABLES Final Re sult Performing Organization Address [facility] Co de Phone Number [facility] [address] [place] [address] * (ABNORMAL) BUN (05/27/2025) Only the most recent of4 resultswithin the time period is included. BUN 31(H) 7 - 25 mg/dL [facility] 05/27/2025 05/26/2025 1:1 3 PM TITLE I MATH TUTOR Narrative Resulting Agency Comment Performing Organization Information: Site ID: FRANCISCO JAVIER Name: Alona Major Address: [facility] [place] [address] Director: Jennifer De Jesus MD Chey Navas MD LAB BLOOD ORDERABLES Final Re sult Performing Organization Address [facility] Co de Phone Number [facility] [address] [place] [address] [place] [address] * Sodium (05/27/2025) Only the most recent of2 resultswithin the time period is included. Sodium 136 135 - 146 mmol/L [facility] 05/27/2025 05/26/2025 1:1 3 PM TITLE I MATH TUTOR Narrative Resulting Agency Comment Performing Organization Information: Site ID: FRANCISCO JAVIER Name: Alona Major Address: [facility] [place] [address] Director: Jennifer De Jesus MD us Chey Navas MD LAB BLOOD ORDERABLES Final Re sult Performing Organization Address [facility] Co de Phone Number [facility] [id number] [place] [phone] * Protein, total (05/27/2025) Only the most recent of2 resultswithin the time period is included. Total Protein 6.6 6.1 - 8.1 g/dL [facility] 05/27/2025 05/26/2025 1: 13 PM TITLE I MATH TUTOR Narrative Resulting Agency Comment Performing Organization Information: Site ID: FRANCISCO JAVIER Name: [employer] Address: [address] [place] [phone] Director: Jennifer De Jesus MD us Chey Navas MD LAB BLOOD ORDERABLES Final Re sult Performing Organization Address [facility] Co de Phone Number [facility] [address] [place] [phone] * Potassium (05/27/2025) Only the most recent of3 resultswithin the time period is included. Pathologist [facility] Potassium 4.3 3.5 - 5.3 mmol/L [facility] 05/27/2025 05/26/2025 1:1 3 PM TITLE I MATH TUTOR Narrative Resulting Agency Comment Performing Organization Information: Site ID: FRANCISCO JAVIER Name: [employer] Address: [address] [place] [phone] Director: Jennifer De Jesus MD us Chey Navas MD LAB BLOOD ORDERABLES Final Re sult Performing Organization Address [facility] Co de Phone Number [facility] [id number] [place] [phone] * (ABNORMAL) Phosphorus (05/27/2025) Only the most recent of2 resultswithin the time period is included. Phosphorus 5.8(H) 3.0 - 4.5 mg/dL [facility] 05/27/2025 05/26/2025 1:1 3 PM TITLE I MATH TUTOR Narrative Resulting Agency Comment Performing Organization Information: Site ID: FRANCISCO JAVIER Name: [employer] Address: [address] [place] [phone] Director: Jennifer De Jesus MD Chey Navas MD LAB BLOOD ORDERABLES Final Re sult Performing Organization Address [facility] Co de Phone Number [facility] [address] * (ABNORMAL) Alkaline phosphatase (05/27/2025) Alkaline Phosphatase 155(H) 31 - 125 U/L [facility] 05/27/2025 05/26/2025 1:1 3 PM TITLE I MATH TUTOR Narrative Resulting Agency Comment Performing Organization Information: Site ID: FRANCISCO JAVIER Name: [employer] Address: [address] [place] [phone] Director: Jennifer De Jesus MD Chey Navas MD LAB BLOOD ORDERABLES Final Re sult Performing Organization Address [facility] Co de Phone Number [facility] [address] * (ABNORMAL) PTH, Intact (05/27/2025) Only the [...] Normal High 05/27/2025 05/26/2025 1:1 3 PM TITLE I MATH TUTOR Narrative Resulting Agency Comment Performing Organization Information: Site ID: FRANCISCO JAVIER Name: [facility] Address: [id number] [place] [phone] Director: Jennifer De Jesus MD us Chey Navas MD LAB BLOOD ORDERABLES Final Re sult Performing Organization Address [facility] Co de Phone Number [facility] [address] [place] [address] * Magnesium (05/27/2025) Pathologist [facility] Magnesium 2.0 1.6 - 2.5 mg/dL [employer] [facility] 05/27/2025 05/26/2025 1:1 3 PM TITLE I MATH TUTOR Narrative Resulting Agency Comment Performing Organization Information: Site ID: FRACNISCO JAVIER Name: [employer] [facility] Address: [address] [place] [phone] Director: Jennifer De Jesus MD us Chey Navas MD LAB BLOOD ORDERABLES Final Re sult Performing Organization Address [facility] de Phone Number [facility] [address] [place] [address] [address] * (ABNORMAL) Hemoglobin A1c (05/27/2025) Hemoglobin A1C [...] for children. 05/27/2025 05/26/2025 1:1 3 PM TITLE I MATH TUTOR Narrative Resulting Agency Comment Performing Organization Information: Site ID: FRANCISCO JAVIER Name: [facility] Address: [place] [address] Director: Jennifer De Jesus MD Chey Navas MD LAB BLOOD ORDERABLES Final Re sult Performing Organization Address [facility] de Phone Number [facility] [place] [address] * (ABNORMAL) Glucose, random (05/27/2025) Only the most recent of2 resultswithin the time period is included. Glucose 115(H) 65 - 99 mg/dL [facility] Comment: For someone without known diabetes, a glucose value between 100 and 125 mg/dL is consistent with prediabetes and should be confirmed with a follow-up test. 05/27/2025 05/26/2025 1:1 3 PM TITLE I MATH TUTOR Narrative Resulting Agency Comment Performing Organization Information: Site ID: FRANCISCO JAVIER Name: [employer] [facility] Address: [address] [place] [address] Director: Jennifer De Jesus MD Chey Navas MD LAB BLOOD ORDERABLES Final Re sult Performing Organization Address [facility] de Phone Number [facility] [address] [place] [address] * (ABNORMAL) Ferritin (05/27/2025) Ferritin 1,011(H) 16 - 154 ng/mL [facility] 05/27/2025 05/26/2025 1:1 3 PM TITLE I MATH TUTOR Narrative Resulting Agency Comment Performing Organization Information: Site ID: FRANCISCO JAVIER Name: [facility] Address: [address] [place], [place] [address] [place] [address] Director: Jennifer De Jesus MD us Chey E Navas MD LAB BLOOD ORDERABLES Final Re sult Performing Organization Address City/[facility]/ZIP Co de Phone Number [facility] [address] * (ABNORMAL) Creatinine, serum (05/27/2025) Only the most recent of2 resultswithin the time period is included. Creatinine 6.06(H) 0.50 - 0.97 mg/dL [facility] 05/27/2025 05/26/2025 1:1 3 PM TITLE I MATH TUTOR Narrative Resulting Agency Comment Performing Organization Information: Site ID: FRANCISCO JAVIER Name: [employer] Address: [address] [place] [phone] Director: Jennifer De Jesus MD us Chey Navas MD LAB BLOOD ORDERABLES Final Re sult Performing Organization Address [facility] Co de Phone Number [facility] [address] * Chloride (05/27/2025) Only the most recent of2 resultswithin the time period is included. Chloride 98 98 - 110 mmol/L [employer] [facility] 05/27/2025 05/26/2025 1:1 3 PM TITLE I MATH TUTOR Narrative Resulting Agency Comment Performing Organization Information: Site ID: FRANCISCO JAVIER Name: [employer] Address: [address] [place] [phone] Director: Jennifer De Jesus MD us Chey Navas MD LAB BLOOD ORDERABLES Final Re sult Performing Organization Address [facility] Co de Phone Number [facility] [address] * CO2 (05/27/2025) Only the most recent of2 resultswithin the time period is included. Bicarbonate (CO2) 27 20 - 29 mmol/L [facility] 05/27/2025 05/26/2025 1:1 3 PM TITLE I MATH TUTOR Narrative Resulting Agency Comment Performing Organization Information: Site ID: FRANCISCO JAVIER Name: [facility] Address: [address] [place] [phone] Director: Jennifer De Jesus MD Chey Navas MD LAB BLOOD ORDERABLES Final Re sult Performing Organization Address [facility] Co de Phone Number [facility] [address] [place] [phone] * (ABNORMAL) Calcium (05/27/2025) Only the most recent of2 resultswithin the time period is included. Calcium 8.2(L) 8.6 - 10.0 mg/dL [facility] 05/27/2025 05/26/2025 1:1 3 PM TITLE I MATH TUTOR Narrative Resulting Agency Comment Performing Organization Information: Site ID: FRANCISCO JAVIER Name: [employer] Address: [address] [place] [phone] Director: Jennifer De Jesus MD Chey Navas MD LAB BLOOD ORDERABLES Final Re sult Performing Organization Address [facility] Co de Phone Number [facility] [address] [place] [phone] * (ABNORMAL) Albumin (05/27/2025) Only the most recent of2 resultswithin the time period is included. Albumin 3.4(L) 3.6 - 5.1 g/dL [facility] 05/27/2025 05/26/2025 1:1 3 PM TITLE I MATH TUTOR Narrative Resulting Agency Comment Performing Organization Information: Site ID: FRANCISCO JAVIER Name: [employer] Address: [address] [place] [phone] Director: Jennifer De Jesus MD us Chey Navas MD LAB BLOOD ORDERABLES Final Re sult Performing Organization Address City/[facility] Co de Phone Number [facility] [address] [place] [address] * (ABNORMAL) HEMATOLOGY (04/22/2025) Only the most recent of5 resultswithin the time period is included. Pathologist [facility] Hemoglobin 9.6(L) 12.0 - 16.0 g/dL [facility] Hemoglobin x 3 28.8(L) 36.0 - 48.0 % [facility] 04/22/2025 04/23/2025 9:0 0 AM CDT Narrative [facility] - 04/23/2025 Unless otherwise specified, test(s) performed at: [facility], [address] [place], [place] [id number] MOLECULAR SPECTROSCOPIST: Jose Luis France M.D. For any questions, please call customer service at FREQUENCY:OTHER Resulting Agency Comment Specimen source: Blood us Chey Navas MD LAB BLOOD ORDERABLES Final Re sult Performing Organization Address [facility] de Phone Number [facility] See order comments or contact performing lab Unknown, [place] * (ABNORMAL) [facility] Chemistry (04/13/2025) Only the most recent of2 resultswithin the time period is included. Pathologist [facility] PTH 561(H) 16 - 80 pg/mL [facility] 04/13/2025 04/14/2025 9:5 3 AM CDT Narrative [facility] - 04/14/2025 Unless otherwise specified, test(s) performed at: [facility], [address] [place], [place] [id number] MOLECULAR SPECTROSCOPIST: Jose Luis France M.D. For any questions, please call customer service at FREQUENCY:OTHER Resulting Agency Comment Specimen source: Plasma us Chey Navas MD LAB BLOOD ORDERABLES Final Re sult Performing Organization Address [facility]/ZIP Co de Phone Number [facility] See order comments or contact performing lab Unknown, [place] * HD KINETICS (03/25/2025) % Urea Reduction 79 65 - 80 % [facility] 03/25/2025 03/26/2025 11: 23 AM CDT Narrative Resulting Agency Comment Specimen source: Plasma Chey Navas MD LAB BLOOD ORDERABLES Final Re sult Performing Organization Address [facility] de Phone Number [facility] See order comments or contact performing lab Unknown, [place] * (ABNORMAL) POST CHEMISTRY (03/25/2025) BUN Post Dialysis 5(L) 6 - 19 mg/dL [facility] 03/25/2025 03/26/2025 11: 23 AM CDT Narrative [facility] - 03/26/2025 Unless otherwise specified, test(s) performed at: [facility], [address] [place] [address] MOLECULAR SPECTROSCOPIST: Jose Luis France M.D. For any questions, please call customer service at FREQUENCY:MONTHLY Resulting Agency Comment Specimen source: Plasma us Chey Navas MD LAB BLOOD ORDERABLES Final Re sult Performing Organization Address [facility] de Phone Number [facility] See order comments or contact performing lab Unknown, [place] from Last 3 Months Insurance Medicaid [place] ([id number]) Medicare Care Teams Electric Truck Operator Relationship Specialty Start Date End Date Alexis Garcia MD [address] [place] [address] PCP - General Family Medicine 04/16/22
--- OUTSIDE RECORDS SUMMARY | 2025-06-14 08:09 | XMS_ITS | Encounter Summary ---
Author Organization [facility], [facility] Address [address] [place] [address] Phone Care Team Providers Care Epic Stork Specialists Name Role Phone Alexis Garcia MD Primary Care Provider [phone] Encounter Details Date Type Department Care Team (Late st Contact Info) Description 12/29/2024 TCM in Dialysis Clinic [facility], [facility] [address] [place] [address] Yann Lozano NP [address] [place] [address] Social History Tobacco Use Types [...] CDT Patient: Donita Aguilar : 1985 C: [facility] Note Type: Dialysis TCM Service Date: 12/29/2024 The patient was seen for a nrik-xq-nagv visit as part of Transitional Care Management services. Attending Gunstock Spray Unit Feeder: MACHO JOHANSEN Dialysis Location: [facility] Schedule: Shift: 2 INTERACTIVE CONTACT This ppma-re-rbhx visit occurred within 2 business days of the patient?s discharge. 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 [facility] Allergies Allergen: acetaminophen Reaction: Nausea/Vomiting TREATMENT [...] to follow with cardiology, pcp, pulmonology and regulatory affairs spec as noted on discharge. EDUCATION Education relevant [...] or secondary infection VISIT DIAGNOSES CPT Code 02818 - High complexity, seen within 7 days of discharge. I20.9 Angina pectoris (HCC) COMMENTS: Verified she has nitroglycerin on hand at home: reviewed appropriate usage. Instructed to call cardiology for follow up appointment K76.0 Fatty (change of) liver, not elsewhere classified COMMENTS: Newly dx on imaging. Per hospital records, has been referred to regulatory affairs spec. Monitor for liver dysfunction, assess for any needed support J18.9 Pneumonia, unspecified organism COMMENTS: Monitor for impaired perfusion, fever/chills, increased SOB. If symptoms present, send for CXray. 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 Left main has luminal irregularity with distal 10% stenosis. Cardiology recommended medical management. Negative for angina on assessment today Reviewed symptoms, usage of nitro: instructed to call cardiology for follow up appt. I22.595 Atherosclerosis of other coronary artery bypass graft(s) [...] on filedocumented in this encounter Care Teams Epic Stork Specialists Relationship Specialty Start Date End Date Alexis Garcia MD [address] [place] [address] PCP - General Family Medicine 04/16/22 documented as of this encounter
--- OUTSIDE RECORDS SUMMARY | 2025-06-14 08:09 | XMS_ITS | Encounter Summary ---
Author Organization [place] [facility] [employer] [employer], [facility] Address [address] [place] [address] Phone Care Team Providers Care Degreaser Operator Name Role Phone Alexis Garcia MD Primary Care Provider [phone] Encounter Details Date Type Department Care Team (Late st Contact Info) Description 06/08/2025 [facility] [address] [place] [address] Karlene Cespedes NP [address] [place] [address] End stage renal disease; Dependence [...] Donita Aguilar, 1985, 39y, F Dialysis Location: [facility] Attending On Site Wastewater Systems Technician: Chey Navas Service Date: 06/08/2025 Service Provider: Karlene Cespedes NP I met face to face with the patient today. OVERVIEW The patient presented with ESRD on dialysis Primary cause of renal failure: Type 1 diabetes mellitus with diabetic chronic kidney disease Comments: VSS, seen on HD machine Hx ESRD secondary to DM I. She did start dialysis about during a hospitalization in [place], [place]. Hx of meth us. She did [...] dialysis documented in this encounter Care Teams Degreaser Operator Relationship Specialty Start Date End Date Alexis Garcia MD [address] [place] [address] PCP - General Family Medicine 04/16/22 documented as of this encounter
--- OUTSIDE RECORDS SUMMARY | 2025-06-14 08:09 | XMS_ITS | Clinical Summary ---
Author Organization [facility] Address [address] [facility] Attn: [place] [address] Care Team Providers Care Retail Support Manager Name Role Phone Shravan Jones DO [...] subcutaneous injection. 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 [facility] [address] [place] [address] Kellee Garcia HAYDEE Nick [address] [facility] [address] [place] [address] Health Maintenance Due Date Last [...] Required) Completed Medical Devices Implanted Type Area Airfield Manager Device Identifier Shelf Expiration Date Model / Serial / Lot Max dailym Flour [id number] - [id number] Implanted:Qty : 2 on 12/17/2016 by Deandre Alan MD Biological Left: Lung CR BARD- DAVOL INC 09/19/2019 [id number] / / [id number] Cath Dialysis Glidepath 14.5fr 24cm Std [id number] - [id number] Implanted:Qty : 1 on 03/18/2024 by Asif Mcclellan MD at [facility] Catheter Right: Chest BARD ANGEL VASC 09/21/2025 [id number] / / [id number] Clip Ligating Horizon Red 079720 - Csc - [id number] Implanted:Qty : 1 on 08/10/2024 by Chato Fitch MD at [facility] Clip Left: Arm TELEFLEX INC [id number] 05/16/2029 867800 / / [id number] Clip Ligating Horizon Med Ti 826743 - Csc - [id number] Implanted:Qty : 1 on 08/10/2024 by Chato Fitch MD at [facility] Clip Left: Arm TELEFLEX- WECK CLOSURE SYS [id number] 03/31/2029 [id number] / / [id number] Retail Solar Advisor Ligaclip Sml Mcs20 - [id number] Implanted:Qty : 1 on 08/10/2024 by Chato Fitch MD at [facility] Clip Left: Arm J&J- ETHICON ENDO[employer]SUR[employer] [id number] 03/23/2029 MCS20 / / [id number] Closure Perclose Prostyle Sut Mediate 84347-36 - [id number] Implanted:Qty : 1 on 09/24/2023 by Janell Beauchamp MD at [facility] Closure Device N/A: Groin LOVE- VASC DEVICE [id number] 06/23/2025 81102-16 / / [id number] Closure Perclose Prostyle Sut Mediate 79827-42 - [id number] Implanted:Qty : 1 on 10/24/2023 by Janell Beauchamp MD at [facility] Closure Device Right: Groin LOVE- VASC DEVICE [id number] 07/24/2025 53823-95 / / [id number] Oil Slc 8.5ml [id number] - Sgtin:[id number] Implanted:Qty : 1 on 06/23/2024 by Janey Carrera MD at [facility] Eye Right: Eye [facility] 12/21/2026 [id number] / GTIN:[id number] / [id number] Graft Vasc Propaten 4-6qqr44dx C448117d - [id number] Implanted:Qty : 1 on 08/10/2024 by Chato Fitch MD at [facility] Graft Left: Arm [employer] [id number] 05/21/2027 [id number] / [id number] / Agent Hemostat Surgicel 2x3in 1952s - [id number] Implanted:Qty : 1 on 08/10/2024 by Chato Fitch MD at [facility] Hemostatic Left: Arm J&J- ETHICON INC [id number] 12/21/20281952S / / [id number] Hemostatic Surgiflo 8ml W/ Thrombin 2994 - [id number] Implanted:Qty : 1 on 08/10/2024 by Chato Fitch MD at [facility] Hemostatic Left: Arm J&J- ETHICON INC [id number] 10/21/2025 2994 / / [id number] Agent Hemostat Surgicel 2x3in 1952s - [id number] Implanted:Qty : 1 on 08/10/2024 by Chato Fitch MD at [facility] Hemostatic Left: Arm J&J- ETHICON INC [id number] 12/21/20281952S / / [id number] Stent Synergy Xd 3.0x48mm Evrlms Elut [id number] 0 - [id number] Implanted:Qty : 1 on 09/24/2023 by Janell Beauchamp MD at [facility] Stent N/A: Coronary BOSTON SCI GENEVIEVE [id number] 03/31/2025 [id number] 300 / / [id number] Stent Synergy Xd 2.87r03tw Evrlms Elut [id number] 0 - [id number] Implanted:Qty : 1 on 10/24/2023 by Janell Beauchamp MD at [facility] Stent Left: Coronary BOSTON SCI GENEV[employer]E [id number] 08/19/2024 [id number] 220 / / [id number] Control Implant Funmi Procedures Procedure Name Priority Date/Time Associated Diagnosis Comments LIPID PANEL Routine 09/21/2023 6:47 PM CDT HEMOGLOBIN A1C Routine 09/21/2023 6:46 PM CDT from Last 3 Months or Most Recently Relevant to Health Maintenance Results * (ABNORMAL) LIPID PANEL (09/21/2023 6:47 PM CDT) [facility] CHOLESTEROL 96 <200 mg/dL 09/21/2023 10:29 PM CDT [facility] TRIGLYCERIDE 164(H) <150 mg/dL 09/21/2023 10:29 PM CDT [facility] HDL 36(L) 40 - 59 mg/dL 09/21/2023 10:29 PM CDT [facility] LDL CALCULATED 27 <100 mg/dL 09/21/2023 10:29 PM CDT [facility] NON-HDL CHOLESTEROL 60 <130 mg/dL 09/21/2023 10:29 PM CDT [facility] Blood Venipuncture / Unknown 09/21/2023 6:47 PM CDT 09/21/2023 7:10 PM CDT [facility] - 09/21/2023 10:29 PM CDT TOTAL CHOLESTEROL [...] Lacy MD CHEMISTRY ORDERABLES Final R esult [facility] CLIA # [id number] [address] [address] [place] [address] * (ABNORMAL) HEMOGLOBIN A1C (09/21/2023 6:46 PM CDT) HEMOGLOBIN A1C 6.8(H) <=5.6 % 09/23/2023 9:24 AM CDT [facility] EST. AVG GLUCOSE, A1C 148 mg/dL 09/23/2023 9:24 AM CDT [facility] Blood Venipuncture / Unknown 09/21/2023 6:46 PM CDT 09/21/2023 7:08 PM CDT Narrative [facility] - 09/23/2023 9:24 AM CDT HGB A1C INTERPRETATION NORMAL: <5.7% PRE-DIABETES: 5.7 - 6.4% DIABETES: 6.5% OR GREATER Luiz Lacy MD CHEMISTRY ORDERABLES Final R esult [facility] CLIA # [id number] [facility] [address] from Last 3 Months or Most Recently Relevant to Health Maintenance Insurance MEDICAID [place] PART A AND B Advance Directives For more information, please contact: [phone] * Full Code (Latest Code Status on File) Date Activated Date Inactivated Comments 10/24/2023 2:34 PM 10/25/2023 11:47 AM * Full Code Date Activated Date Inactivated Comments 10/24/2023 9:13 AM 10/24/2023 2:34 PM * Full Code Date Activated Date Inactivated Comments 09/24/2023 3:14 PM 09/25/2023 9:51 PM * Full Code Date Activated Date Inactivated Comments 09/21/2023 5:50 PM 09/24/2023 3:14 PM Care Teams Retail Support Manager Relationship Specialty Start Date End Date Shravan Jones DO PCP - General Family Practice 12/04/16
--- OUTSIDE RECORDS SUMMARY | 2025-06-14 08:10 | XMS_ITS | Encounter Summary ---
Author Organization [facility] Address [address] [place] [address] Care Team Providers Care Refuse Collector Name Role Phone Shravan Jones DO Primary Care Provider [phone] Encounter Details Date Type Department Care Team (Late st Contact Info) Description 01/07/2017 Lab Requisition [facility] Laboratory [facility] [address] [place] [address] David Ortega MD [address] [place] [address] Social History Tobacco Use Types Packs/Day Years Used Date Smoking Tobacco: Every Day Cigarettes Comments:pt lethargic Comments Unknown Sex and Gender Information Value Date Recorded Sex Assigned at Not on file 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 Gender Identity Not on file Sexual [...] Detected 01/07/2017 8:08 PM CDT [facility] [email or web address] [facility] Stool STOOL SPECIMEN / Unknown 01/07/2017 1:54 PM CDT 01/07/2017 6:53 PM CDT Narrative [facility] - 01/07/2017 8:08 PM CDT [...] GENERAL ORDERAB LES Final Result [facility] [email or web address] [facility] CLIA# [id number] [address] [place] [address] documented in this encounter Visit Diagnoses Not on filedocumented in this encounter Care Teams Refuse Collector Relationship Specialty Start Date End Date Shravan Jones DO PCP - General Family Practice 12/04/16 documented as of this encounter
--- OUTSIDE RECORDS SUMMARY | 2025-06-14 08:10 | XMS_ITS | Encounter Summary ---
Author Organization [facility] Address [address] [place] [address] Care Team Providers Care Road Boss Name Role Phone Shravan Jones DO Primary Care Provider Encounter Details Date Type Department Care Team (Late st Contact Info) Description 12/28/2016 Lab Requisition [facility] Services [address] [place] [address] David Ortega MD [address] [place] [address] Social History Tobacco Use Types Packs/Day Years Used Date Smoking Tobacco: Every Day Cigarettes Comments:pt lethargic Comments Unknown Sex and Gender Information Value Date Recorded Sex Assigned at Not on file 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 Gender Identity Not on file Sexual Orientation [...] mg/dL 12/28/2016 5:42 AM CDT [facility] Blood Collection / Unknown 12/28/2016 2:39 AM CDT 12/28/2016 5:01 AM CDT David Ortega MD CHEMISTRY ORDERABLES Final Res ult Performing Organization Address [facility] Co de Phone Number [facility] CLIA# [id number] [address] [place] [address] [id number] * MAGNESIUM LEVEL (12/28/2016 2:39 AM CDT) [facility] MAGNESIUM 1.6 1.6 - 2.6 mg/dL 12/28/2016 5:42 AM CDT [facility] Blood Collection / Unknown 12/28/2016 2:39 AM CDT 12/28/2016 5:01 AM CDT Narrative [facility] - 12/28/2016 5:42 AM CDT Due to Jewelry Drilling Machine Operator update, MG+ reference range has changed from 1.8 - 2.4 mg/dL to the new reference range of 1.6 - 2.6 mg/dL. This will have limited patient impact. David Ortega MD CHEMISTRY ORDERABLES Final Res ult Performing Organization Address [facility] Co de Phone Number [facility] CLIA# [id number] [address] [place] [address] * PROTIME-INR (12/28/2016 2:39 AM CDT) [facility] PROTIME 15.0 12.3 - 15.5 Seconds 12/28/2016 5:16 AM CDT [facility] INR 1.1 0.8 - 1.2 12/28/2016 5:16 AM CDT [facility] Blood Collection / Unknown 12/28/2016 2:39 AM CDT 12/28/2016 5:01 AM CDT [place] [facility] - 12/28/2016 5:16 AM CDT Expected Values for INR: DVT/PE Goal INR 2.5; range 2.0 - 3.0 Valve Replacement Tissue Goal INR 2.5; range 2.0 - 3.0 Valve Replacement Mechanical Goal INR 3.0; range 2.5 - 3.5 POST-WV Goal INR 2.5; range 2.0 - 3.0 or Goal INR 3.0; range 2.5 - 3.5 Atrial Fibrillation Goal INR 2.5; range 2.0 - 3.0 Ischemic Stroke Goal INR 2.5; range 2.0 - 3.0 For additional information see Guidelines for Anticoagulation available from the pharmacy Wendy Vargas Pharm D. David Ortega MD HEMATOLOGY ORDERABLES Final Re sult [facility] CLIA# [id number] [address] [place] [address] * (ABNORMAL) PTT (12/28/2016 2:39 AM CDT) PTT 39.1(H) 24.8 - 38.8 seconds 12/28/2016 5:16 AM CDT [facility] Blood Collection / Unknown 12/28/2016 2:39 AM CDT 12/28/2016 5:01 AM CDT [place] [facility] - 12/28/2016 5:16 AM CDT Therapeutic Range: Hi-level PE/DVT heparin protocol 80.1 - 95.0 sec Lo-level PE/DVT heparin protocol 70.1 - 85.0 sec Cardiac Heparin Protocol 70.1 - 100.0 sec David Ortega MD HEMATOLOGY ORDERABLES Final Re sult [facility] CLIA# [id number] [facility] [place] [address] * (ABNORMAL) CBC WITH DIFFERENTIAL (12/28/2016 2:39 AM CDT) Pathologist [facility] WBC 11.0 4.5 - 11.0 K/uL 12/28/2016 5:09 AM CDT [facility] RBC 3.80(L) 4.20 - 5.40 M/uL 12/28/2016 5:09 AM CDT [facility] HEMOGLOBIN 9.3(L) 12.0 - 16.0 g/dL 12/28/2016 5:[facility] 30.6(L) 36.0 - 46.0 % 12/28/2016 5:09 AM CDT [facility] MCV 80.5(L) 84.0 - 103.0 fL 12/28/2016 5:09 AM CDT [facility] MCH 24.5(L) 27.0 - 34.0 pg 12/28/2016 5:09 AM CDT [facility] MCHC 30.4 30.0 - 35.0 g/dL 12/28/2016 5:09 AM CDT [facility] RDW 17.3(H) 11.0 - 14.5 % 12/28/2016 5:09 AM T [facility] RDW-STDEV 51.8 37.0 - 54.0 fL 12/28/2016 5:09 AM CDT [facility] PLATELETS 757(H) 140 - 440 K/uL 12/28/2016 5:09 AM CDT [facility] MPV 8.9 8.9 - 12.8 fL 12/28/2016 5:09 AM CDT [facility] NEUTROPHILS 65 42 - 75 % 12/28/2016 5:09 AM CDT [facility] LYMPHOCYTES 19(L) 24 - 44 % 12/28/2016 5:09 AM CDT [facility] MONOCYTES 10 2 - 10 % 12/28/2016 5:09 AM CDT [facility] EOSINOPHILS 5 0 - 7 % 12/28/2016 5:09 AM CDT [facility] BASOPHILS 1 0 - 1 % 12/28/2016 5:09 AM CDT [facility] IMMATURE GRANULOCYTES 1 0 - 2 % 12/28/2016 5:09 AM CDT [facility] NEUTROPHIL ABSOLUTE 7.19 2.00 - 8.00 K/uL 12/28/2016 5:09 AM CDT [facility] LYMPHOCYTE ABSOLUTE 2.04 1.20 - 4.00 K/uL 12/28/2016 5:09 AM CDT [facility] MONOCYTE ABSOLUTE 1.06(H) 0.10 - 0.60 K/uL 12/28/2016 5:09 AM CDT [facility] EOSINOPHIL ABSOLUTE 0.60 0.00 - 0.70 K/uL 12/28/2016 5:09 AM CDT [facility] BASOPHILS ABSOLUTE 0.07 0.00 - 0.20 K/uL 12/28/2016 5:09 AM CDT [facility] IMMATURE GRANULOCYTES ABSOLUTE 0.07 0.00 - 0.10 K/uL 12/28/2016 5:09 AM T [facility] Blood Collection / Unknown 12/28/2016 2:39 AM CDT 12/28/2016 5:01 AM CDT us David Ortega MD HEMATOLOGY ORDERABLES Final Re sult [facility] CLIA# [id number] [address] [place] [address] * (ABNORMAL) COMPREHENSIVE METABOLIC PANEL (12/28/2016 2:39 AM CDT) SODIUM 143 136 - 145 mmol/L 12/28/2016 5:47 AM CDT [facility] POTASSIUM 3.3(L) 3.5 - 5.1 mmol/L 12/28/2016 5:47 AM [facility] CHLORIDE 103 98 - 107 mmol/L 12/28/2016 5:47 AM [facility] CO2 29 21 - 32 mmol/L 12/28/2016 5:47 AM [facility] CALCIUM 8.9 8.4 - 10.1 mg/dL 12/28/2016 5:47 AM [facility] BUN 13 7 - 17 mg/dL 12/28/2016 5:47 AM [facility] CREATININE 0.70 0.55 - 1.02 mg/dL 12/28/2016 5:47 AM [facility] GLUCOSE 46(LL) 74 - 106 mg/dL 12/28/2016 5:47 AM [facility] TOTAL PROTEIN 8.2 6.4 - 8.2 g/dL 12/28/2016 5:47 AM [facility] ALBUMIN 1.8(L) 3.4 - 5.0 g/dL 12/28/2016 5:47 AM [facility] BILIRUBIN TOTAL 0.2 0.2 - 1.0 mg/dL 12/28/2016 5:47 AM [facility] ALKALINE PHOSPHATASE 93 25 - 100 U/L 12/28/2016 5:47 AM [facility] AST 18 15 - 37 U/L 12/28/2016 5:47 AM [facility] ALT 18 13 - 61 U/L 12/28/2016 5:47 AM [facility] GFR >60 >=60 mL/min/1.7 3 sq meter 12/28/2016 5:47 AM [facility] Comment: eGFR has not [...] 3 sq meter 12/28/2016 5:47 AM CDT [facility] ANION GAP 11 4 - 30 mmol/L 12/28/2016 5:47 AM CDT [facility] Blood Collection / Unknown 12/28/2016 2:39 AM CDT 12/28/2016 5:01 AM CDT us David Ortega MD CHEMISTRY ORDERABLES Final Res ult [facility] CLIA# [id number] [address] [place] [address] documented in this encounter Visit Diagnoses Not on filedocumented in this encounter Care Teams Road Boss Relationship Specialty Start Date End Date Shravan Jones DO PCP - General Family Practice 12/04/16 documented as of this encounter
--- OUTSIDE RECORDS SUMMARY | 2025-06-14 08:10 | XMS_ITS | Encounter Summary ---
Author Organization [facility] Address [address] [place] [address] Care Team Providers Care Tool Room Lathe Operator Name Role Phone Shravan Jones DO Primary Care Provider [phone]- [phone] Encounter Details Date Type Department Care Team (Latest Contact Info) Description 05/14/2003 Outpatient [facility] Oral and Maxillo Surgery[address] [place] [address] Jimmy Tineo, CLIVES NO ADDRESS ON FILE UNSPEC DENTAL CARIES (Primary Dx); TOOTH POSITION ANOMALY Social History Tobacco Use Types Packs/Day Years Used Date Smoking Tobacco: Never Assessed Comments Unknown Sex and Gender Information Value Date Recorded Sex Assigned at Not on file 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
--- OUTSIDE RECORDS SUMMARY | 2025-06-14 08:10 | XMS_ITS | Encounter Summary ---
Author Organization [facility] Address [address] [place] [address] Care Team Providers Care Manager Pest Name Role Phone Shravan Jones DO Primary Care Provider [phone] Encounter Details Date Type Department Care Team (Late st Contact Info) Description 01/07/2017 Lab Requisition [facility] Laboratory Services [address] [place] [address] David Ortega MD [address] [place] [address] Social History Tobacco Use Types Packs/Day Years Used Date Smoking Tobacco: Every Day Cigarettes Comments:pt lethargic Comments Unknown Sex and Gender Information Value Date Recorded Sex Assigned at Not on file 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
--- OUTSIDE RECORDS SUMMARY | 2025-06-14 08:10 | XMS_ITS | Encounter Summary ---
Author Organization [facility] Address 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 For 11/25 as she has other appts in town that day. Please call pt to reschedule. [facility] Truck Driver Helper: Patrica Barney documented in this encounter Plan of Treatment Upcoming Encounters Date Type Department Care Team (Late st Contact Info) Description 08/18/2025 11:00 AM UNDERPRESSER HAND [facility] [address] [facility] [address] [place] [address] Kellee Garcia, HAYDEE [address] [place] [address] documented as of this encounter Visit Diagnoses Not on filedocumented in this encounter Additional Health Concerns Infection Onset Date Last Indicated Resolved Time R/O C. diff 07/06/2024 07/06/2024 07/06/2024 8:35 AM UNDERPRESSER HAND documented as of this encounter Care Teams Supervisor Cell Efficiency Relationship Specialty Start Date End Date Shravan Jones DO PCP - General Family Practice 12/04/16 documented as of this encounter
--- OUTSIDE RECORDS SUMMARY | 2025-06-14 08:10 | XMS_ITS | Encounter Summary ---
Author Organization [facility] Address [address] [place] [address] Phone Care Team Providers Care Crester Name Role Phone Alexis Garcia MD Primary Care Provider [phone] Encounter Details Date Type Department Care Team (Late st Contact Info) Description 04/16/2022 Orders Only [facility] [address] [place] [address] Chronic kidney disease, Stage IV [...] (severe) documented in this encounter Care Teams Crester Relationship Specialty Start Date End Date Alexis Garcia MD [address] [place] [address] PCP - General Family Medicine 04/16/22 documented as of this encounter
--- OUTSIDE RECORDS SUMMARY | 2025-06-14 08:10 | XMS_ITS | Encounter Summary ---
Author Organization [facility] Address [address] [place] [address] Care Team Providers Care Theatrical Variety Agent Name Role Phone Shravan Jones DO Primary Care Provider [phone] Encounter Details Date Type Department Care Team (Late st Contact Info) Description 01/02/2017 Lab Requisition [facility] Laboratory Services [address] [place] [address] Izabela Diamond MD NO ADDRESS ON FILE Social History Tobacco Use Types Packs/Day Years Used Date Smoking Tobacco: Every Day Cigarettes Comments:pt lethargic Comments Unknown Sex and Gender Information Value Date Recorded Sex Assigned at Not on file 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 Mobile Iron [facility] POTASSIUM 4.3 3.5 - 5.1 mmol/L 01/02/2017 6:07 AM CDT [facility] CHLORIDE 101 98 - 107 mmol/L 01/02/2017 6:07 AM T [facility] CO2 27 21 - 32 mmol/L 01/02/2017 6:07 AM T [facility] CALCIUM 9.7 8.4 - 10.1 mg/dL 01/02/2017 6:07 AM T [facility] BUN 16 7 - 17 mg/dL 01/02/2017 6:07 AM [facility] CREATININE 0.87 0.55 - 1.02 mg/dL 01/02/2017 6:07 AM T [facility] GLUCOSE 122(H) 74 - 106 mg/dL 01/02/2017 6:07 AM [facility] GFR >60 >=60 mL/min/1.7 3 sq meter 01/02/2017 6:07 AM T [facility] Comment: eGFR has not been validated for [...] 3 sq meter 01/02/2017 6:07 AM CDT [facility] ANION GAP 10 4 - 30 mmol/L 01/02/2017 6:07 AM T [facility] Blood 01/02/2017 3:00 AM CDT 01/02/2017 5:35 AM CDT us Izabela Diamond MD CHEMISTRY ORDERABLES Final Res ult [facility] CLIA# [id number] [address] [place] [address] * (ABNORMAL) CBC WITH DIFFERENTIAL (01/02/2017 3:00 AM CDT) [facility] WBC 10.4 4.5 - 11.0 K/uL 01/02/2017 5:44 AM [facility] RBC 4.30 4.20 - 5.40 M/uL 01/02/2017 5:44 AM [facility] HEMOGLOBIN 10.4(L) 12.0 - 16.0 g/dL 01/02/2017 5:44 AM [facility] HEMATOCRIT 34.5(L) 36.0 - 46.0 % 01/02/2017 5:44 AM [facility] MCV 80.2(L) 84.0 - 103.0 fL 01/02/2017 5:44 AM [facility] MCH 24.2(L) 27.0 - 34.0 pg 01/02/2017 5:44 AM [facility] MCHC 30.1 30.0 - 35.0 g/dL 01/02/2017 5:44 AM [facility] RDW 17.4(H) 11.0 - 14.5 % 01/02/2017 5:44 AM [facility] RDW-STDEV 51.1 37.0 - 54.0 fL 01/02/2017 5:44 AM [facility] PLATELETS 764(H) 140 - 440 K/uL 01/02/2017 5:44 AM [facility] MPV 9.2 8.9 - 12.8 fL 01/02/2017 5:44 AM [facility] NEUTROPHILS 56 42 - 75 % 01/02/2017 5:44 AM [facility] LYMPHOCYTES 27 24 - 44 % 01/02/2017 5:44 AM [facility] MONOCYTES 8 2 - 10 % 01/02/2017 5:44 AM [facility] EOSINOPHILS 7 0 - 7 % 01/02/2017 5:44 AM [facility] BASOPHILS 1 0 - 1 % 01/02/2017 5:44 AM [facility] IMMATURE GRANULOCYTES 1 0 - 2 % 01/02/2017 5:44 AM CDT [facility] NEUTROPHIL ABSOLUTE 5.79 2.00 - 8.00 K/uL 01/02/2017 5:44 AM CDT [facility] LYMPHOCYTE ABSOLUTE 2.78 1.20 - 4.00 K/uL 01/02/2017 5:44 AM CDT [facility] MONOCYTE ABSOLUTE 0.85(H) 0.10 - 0.60 K/uL 01/02/2017 5:44 AM CDT [facility] EOSINOPHIL ABSOLUTE 0.76(H) 0.00 - 0.70 K/uL 01/02/2017 5:44 AM CDT [facility] BASOPHILS ABSOLUTE 0.10 0.00 - 0.20 K/uL 01/02/2017 5:44 AM CDT [facility] IMMATURE GRANULOCYTES ABSOLUTE 0.09 0.00 - 0.10 K/uL 01/02/2017 5:44 AM CDT [facility] Blood 01/02/2017 3:00 AM CDT 01/02/2017 5:35 AM CDT us Izabela Diamond MD HEMATOLOGY ORDERABLES Final Re sult [facility] CLIA# [id number] [address] [place] [address] documented in this encounter Visit Diagnoses Not on filedocumented in this encounter Care Teams Theatrical Variety Agent Relationship Specialty Start Date End Date Shravan Jones DO PCP - General Family Practice 12/04/16 documented as of this encounter
--- OUTSIDE RECORDS SUMMARY | 2025-06-14 08:10 | XMS_ITS | Encounter Summary ---
Author Organization [employer] Address [address] [place] [address] Care Team Providers Care Shipping Order Clerk Name Role Phone Shravan Jones DO Primary Care Provider [phone] Encounter Details Date Type Department Care Team [...] and Family Not on file 09/22/2023 Attends [employer] Not on file 09/21 Active Member [...] on file Legal Sex Female 3:34 PM LEAN PROCESS DEPLOYMENT CONSULTANT Gender Identity Not on file Sexual Orientation Not on file documented as of this encounter Plan of Treatment Upcoming Encounters Date Type Department Care Team (Late st Contact Info) Description 08/18/2025 11:00 AM LEAN PROCESS DEPLOYMENT CONSULTANT Office Visit [facility] Gastroenterology- [place] [address] [facility] [address] [place] [address] Kellee Garcia, WINCH DRIVER [address] [facility] [address] [place] [address] documented as of this encounter Visit Diagnoses Not on filedocumented in this encounter Care Teams Shipping Order Clerk Relationship Specialty Start Date End Date Shravan Jones DO PCP - General Family Practice 12/04/16 documented as of this encounter
--- OUTSIDE RECORDS SUMMARY | 2025-06-14 08:10 | XMS_ITS | Clinical Summary ---
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 Gender Identity Not on file Sexual [...] Required) Completed Medical Devices Implanted Type Area Ict Business Analyst Device Identifier Shelf Expiration Date Model / Serial / Lot Max dailym Flour [id number] - [id number] Implanted:Qty: 2 on 12/17/2016 by Deandre Alan MD at [facility] Biological Left: Lung [employer] 09/19/2019 [id number] / / [id number] Control Implant Funmi Procedures Procedure Name Priority Date/Time Associated Diagnosis Comments HEMOGLOBIN A1C Routine 01/09/2017 2:52 AM CDT from Last 3 Months or Most Recently Relevant to Health Maintenance Results * (ABNORMAL) HEMOGLOBIN A1C (01/09/2017 2:52 AM CDT) HEMOGLOBIN A1C 8.9(H) 4.0 - 6.0 % 01/09/2017 1:31 PM CDT [facility] EST. AVG GLUCOSE, A1C 209 mg/dL 01/09/2017 1:31 PM CDT [facility] Blood 01/09/2017 2:52 AM CDT 01/09/2017 6:53 AM CDT Narrative [facility] - 01/09/2017 1:31 PM CDT Test performed on [employer] instrumentation using HPLC methodology us Izabela Diamond MD CHEMISTRY ORDERABLES Final Res ult [facility] CLIA# [id number] [address] [place] [address] from Last 3 Months or Most Recently Relevant to Health [place] [address] [facility] MEDICAID Advance Directives For more information, please contact: [phone] * Full Code (Latest Code Status on File) Date Activated Date Inactivated Comments 12/17/2016 1:05 PM 12/27/2016 11:32 PM Care Teams Machine Sprayer Relationship Specialty Start Date End Date Shravan Jones DO PCP - General Family Practice 12/04/16
--- OUTSIDE RECORDS SUMMARY | 2025-06-14 08:10 | XMS_ITS | Encounter Summary ---
Author Organization [facility] Address [address] [place] [address] Care Team Providers Care Ring Rolling Machine Operator Name Role Phone Shravan Jones DO Primary Care Provider [phone] Encounter Details Date Type Department Care Team (Late st Contact Info) Description 01/07/2017 Lab Requisition [facility] Laboratory Services [address] [place] [address] Izabela Diamond MD NO ADDRESS ON FILE Social History Tobacco Use Types Packs/Day Years Used Date Smoking Tobacco: Every Day Cigarettes Comments:pt lethargic Comments Unknown Sex and Gender Information Value Date Recorded Sex Assigned at Not on file 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 Sex Female 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 Gender Identity Not on file Sexual Orientation [...] 40 mg/dL 01/07/2017 5:27 AM CDT [facility] Blood 01/07/2017 2:23 AM CDT 01/07/2017 5:01 AM CDT Izabela Diamond MD CHEMISTRY ORDERABLES Final Res ult Performing Organization Address City/[facility]/ZIP Co de Phone Number [facility] CLIA# [id number] [address] [place] [address] * (ABNORMAL) C-REACTIVE PROTEIN (01/07/2017 2:23 AM CDT) CRP 16.6(H) 0.0 - 2.9 mg/L 01/07/2017 5:27 AM CDT [facility] Blood 01/07/2017 2:23 AM CDT 01/07/2017 5:01 AM CDT Izabela Diamond MD CHEMISTRY ORDERABLES Final Res ult Performing Organization Address [facility] Co de Phone Number [facility] CLIA# [id number] [address] [place] [address] * (ABNORMAL) BASIC METABOLIC PANEL (01/07/2017 2:23 AM CDT) SODIUM 139 136 - 145 mmol/L 01/07/2017 5:27 AM CDT [facility] Next[employer] [facility] POTASSIUM 4.1 3.5 - 5.1 mmol/L 01/07/2017 5:27 AM CDT [facility] [employer] [facility] CHLORIDE 104 98 - 107 mmol/L 01/07/2017 5:27 AM CDT [facility] [employer] [facility] CO2 26 21 - 32 mmol/L 01/07/2017 5:27 AM CDT [facility] [employer] [facility] CALCIUM 9.1 8.4 - 10.1 mg/dL 01/07/2017 5:27 AM CDT [facility] [employer] [facility] BUN 14 7 - 17 mg/dL 01/07/2017 5:27 AM CDT [facility] CREATININE 0.82 0.55 - 1.02 mg/dL 01/07/2017 5:27 AM T [facility] GLUCOSE 274(H) 74 - 106 mg/dL 01/07/2017 5:27 AM T [facility] GFR >60 >=60 mL/min/1.7 3 sq meter 01/07/2017 5:27 AM T [facility] Comment: eGFR has not been [...] 3 sq meter 01/07/2017 5:27 AM T [facility] ANION GAP 9 4 - 30 mmol/L 01/07/2017 5:27 AM [facility] Blood 01/07/2017 2:23 AM CDT 01/07/2017 5:01 AM CDT us Izabela Diamond MD CHEMISTRY ORDERABLES Final Res ult [facility] CLIA# [id number] [address] [place] [address] * (ABNORMAL) CBC WITH DIFFERENTIAL (01/07/2017 2:23 AM CDT) WBC 9.3 4.5 - 11.0 K/uL 01/07/2017 5:27 AM CDT [facility] RBC 4.19(L) 4.20 - 5.40 M/uL 01/07/2017 5:27 AM CDT [facility] HEMOGLOBIN 10.3(L) 12.0 - 16.0 g/dL 01/07/2017 5:27 AM [facility] HEMATOCRIT 33.2(L) 36.0 - 46.0 % 01/07/2017 5:27 AM [facility] MCV 79.2(L) 84.0 - 103.0 fL 01/07/2017 5:27 AM [facility] MCH 24.6(L) 27.0 - 34.0 pg 01/07/2017 5:27 AM [facility] MCHC 31.0 30.0 - 35.0 g/dL 01/07/2017 5:27 AM [facility] RDW 17.2(H) 11.0 - 14.5 % 01/07/2017 5:27 AM [facility] RDW-STDEV 49.4 37.0 - 54.0 fL 01/07/2017 5:27 AM [facility] PLATELETS 545(H) 140 - 440 K/uL 01/07/2017 5:27 AM [facility] MPV 10.2 8.9 - 12.8 fL 01/07/2017 5:27 AM [facility] NEUTROPHILS 53 42 - 75 % 01/07/2017 5:27 AM [facility] LYMPHOCYTES 26 24 - 44 % 01/07/2017 5:27 AM [facility] MONOCYTES 9 2 - 10 % 01/07/2017 5:27 AM [facility] EOSINOPHILS 11(H) 0 - 7 % 01/07/2017 5:27 AM [facility] BASOPHILS 1 0 - 1 % 01/07/2017 5:27 AM [facility] IMMATURE GRANULOCYTES 0 0 - 2 % 01/07/2017 5:27 AM [facility] NEUTROPHIL ABSOLUTE 4.88 2.00 - 8.00 K/uL 01/07/2017 5:27 AM [facility] LYMPHOCYTE ABSOLUTE 2.45 1.20 - 4.00 K/uL 01/07/2017 5:27 AM [facility] MONOCYTE ABSOLUTE 0.79(H) 0.10 - 0.60 K/uL 01/07/2017 5:27 AM CDT [facility] EOSINOPHIL ABSOLUTE 1.01(H) 0.00 - 0.70 K/uL 01/07/2017 5:27 AM CDT [facility] BASOPHILS ABSOLUTE 0.11 0.00 - 0.20 K/uL 01/07/2017 5:27 AM CDT [facility] IMMATURE GRANULOCYTES ABSOLUTE 0.04 0.00 - 0.10 K/uL 01/07/2017 5:27 AM CDT [facility] Blood 01/07/2017 2:23 AM CDT 01/07/2017 5:01 AM CDT us Izabela Diamond MD HEMATOLOGY ORDERABLES Final Re sult [facility] CLIA# [id number] [address] [place] [address] documented in this encounter Visit Diagnoses Not on filedocumented in this encounter Care Teams Ring Rolling Machine Operator Relationship Specialty Start Date End Date Shravan Jones DO PCP - General Family Practice 12/04/16 documented as of this encounter
--- OUTSIDE RECORDS SUMMARY | 2025-06-14 08:10 | XMS_ITS | Encounter Summary ---
Author Organization [facility] Address [address] [place] [address] Care Team Providers Care Oil Rig Driller Name Role Phone Shravan Jones DO Primary Care Provider [phone] Encounter Details Date Type Department Care Team (Late st Contact Info) Description 01/09/2017 Lab Requisition [facility] Laboratory Services [facility] [address] [place] [address] Izabela Diamond MD NO ADDRESS ON FILE Social History Tobacco Use Types Packs/Day Years Used Date Smoking Tobacco: Every Day Cigarettes Comments:pt lethargic Comments Unknown Sex and Gender Information Value Date Recorded Sex Assigned at Not on file 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 This will have limited patient impact. us Izabela Diamond MD CHEMISTRY ORDERABLES Final Res ult [facility] CLIA# [id number] [address] [place] [address] * (ABNORMAL) COMPREHENSIVE METABOLIC PANEL (01/09/2017 3:15 AM CDT) SODIUM 139 136 - 145 mmol/L 01/09/2017 5:53 AM CDT [facility] POTASSIUM 4.1 3.5 - 5.1 mmol/L 01/09/2017 5:53 AM T [facility] CHLORIDE 101 98 - 107 mmol/L 01/09/2017 5:53 AM T [facility] CO2 28 21 - 32 mmol/L 01/09/2017 5:53 AM T [facility] CALCIUM 8.8 8.4 - 10.1 mg/dL 01/09/2017 5:53 AM T [facility] BUN 18(H) 7 - 17 mg/dL 01/09/2017 5:53 AM T [facility] CREATININE 0.73 0.55 - 1.02 mg/dL 01/09/2017 5:53 AM T [facility] GLUCOSE 182(H) 74 - 106 mg/dL 01/09/2017 5:53 AM T [facility] TOTAL PROTEIN 8.4(H) 6.4 - 8.2 g/dL 01/09/2017 5:53 AM T [facility] ALBUMIN 2.5(L) 3.4 - 5.0 g/dL 01/09/2017 5:53 AM CDT [facility] BILIRUBIN TOTAL 0.2 0.2 - 1.0 mg/dL 01/09/2017 5:53 AM CDT [facility] ALKALINE PHOSPHATASE 99 25 - 100 U/L 01/09/2017 5:53 AM CDT [facility] AST 30 15 - 37 U/L 01/09/2017 5:53 AM CDT [facility] ALT 27 13 - 61 U/L 01/09/2017 5:53 AM CDT [facility] GFR >60 >=60 mL/min/1.7 3 sq meter 01/09/2017 5:53 AM T [facility] Comment: eGFR has not been [...] 3 sq meter 01/09/2017 5:53 AM CDT [facility] ANION GAP 10 4 - 30 mmol/L 01/09/2017 5:53 AM T [facility] Blood 01/09/2017 3:15 AM CDT 01/09/2017 5:12 AM CDT us Izabela Diamond MD CHEMISTRY ORDERABLES Final Res ult [facility] CLIA# [id number] [address] [place] [address] * (ABNORMAL) CBC WITH DIFFERENTIAL (01/09/2017 3:15 AM CDT) WBC 8.7 4.5 - 11.0 K/uL 01/09/2017 5:20 AM [facility] RBC 4.63 4.20 - 5.40 M/uL 01/09/2017 5:20 AM [facility] HEMOGLOBIN 11.3(L) 12.0 - 16.0 g/dL 01/09/2017 5:20 AM [facility] HEMATOCRIT 36.8 36.0 - 46.0 % 01/09/2017 5:20 AM [facility] MCV 79.5(L) 84.0 - 103.0 fL 01/09/2017 5:20 AM [facility] MCH 24.4(L) 27.0 - 34.0 pg 01/09/2017 5:20 AM [facility] MCHC 30.7 30.0 - 35.0 g/dL 01/09/2017 5:20 AM [facility] RDW 17.3(H) 11.0 - 14.5 % 01/09/2017 5:20 AM [facility] RDW-STDEV 50.4 37.0 - 54.0 fL 01/09/2017 5:20 AM [facility] PLATELETS 463(H) 140 - 440 K/uL 01/09/2017 5:20 AM [facility] MPV 9.9 8.9 - 12.8 fL 01/09/2017 5:20 AM [facility] NEUTROPHILS 46 42 - 75 % 01/09/2017 5:20 AM [facility] LYMPHOCYTES 33 24 - 44 % 01/09/2017 5:20 AM [facility] MONOCYTES 8 2 - 10 % 01/09/2017 5:20 AM [facility] EOSINOPHILS 11(H) 0 - 7 % 01/09/2017 5:20 AM [facility] BASOPHILS 1 0 - 1 % 01/09/2017 5:20 AM [facility] IMMATURE GRANULOCYTES 0 0 - 2 % 01/09/2017 5:20 AM [facility] NEUTROPHIL ABSOLUTE 4.05 2.00 - 8.00 K/uL 01/09/2017 5:20 AM CDT [facility] LYMPHOCYTE ABSOLUTE 2.86 1.20 - 4.00 K/uL 01/09/2017 5:20 AM CDT [facility] MONOCYTE ABSOLUTE 0.73(H) 0.10 - 0.60 K/uL 01/09/2017 5:20 AM CDT [facility] EOSINOPHIL ABSOLUTE 0.95(H) 0.00 - 0.70 K/uL 01/09/2017 5:20 AM CDT [facility] BASOPHILS ABSOLUTE 0.11 0.00 - 0.20 K/uL 01/09/2017 5:20 AM CDT [facility] IMMATURE GRANULOCYTES ABSOLUTE 0.03 0.00 - 0.10 K/uL 01/09/2017 5:20 AM CDT [facility] Blood 01/09/2017 3:15 AM CDT 01/09/2017 5:12 AM CDT us Izabela Diamond MD HEMATOLOGY ORDERABLES Final Re sult [facility] CLIA# [id number] [address] [place] [address] * (ABNORMAL) HEMOGLOBIN A1C (01/09/2017 2:52 AM CDT) HEMOGLOBIN A1C 8.9(H) 4.0 - 6.0 % 01/09/2017 1:31 PM CDT [facility] EST. AVG GLUCOSE, A1C 209 mg/dL 01/09/2017 1:31 PM CDT [facility] Blood 01/09/2017 2:52 AM CDT 01/09/2017 6:53 AM CDT Narrative [facility] - 01/09/2017 1:31 PM CDT Test performed on [employer] instrumentation using HPLC methodology us Izabela Diamond MD CHEMISTRY ORDERABLES Final Res ult [facility] CLIA# [id number] [address] [place] [address] documented in this encounter Visit Diagnoses Not on filedocumented in this encounter Care Teams Oil Rig Driller Relationship Specialty Start Date End Date Shravan Jones DO PCP - General Family Practice 12/04/16 documented as of this encounter
--- OUTSIDE RECORDS SUMMARY | 2025-06-14 08:10 | XMS_ITS | Encounter Summary ---
Author Organization [facility] Address [address] [place] [address] Care Team Providers Care Leather Coverer Name Role Phone Shravan Jones DO Primary Care Provider [phone] Encounter Details Date Type Department Care Team (Late st Contact Info) Description 12/31/2016 Lab Requisition [facility] Laboratory Services [address] [place] [address] David Ortega MD [address] [place] [address] Social History Tobacco Use Types Packs/Day Years Used Date Smoking Tobacco: Every Day Cigarettes Comments:pt lethargic Comments Unknown Sex and Gender Information Value Date Recorded Sex Assigned at Not on file 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 - 12/31/2016 5:52 AM CDT Due to Temporary Administrative Assistant update, MG+ reference range has changed from 1.8 - 2.4 mg/dL to the new reference range of 1.6 - 2.6 mg/dL. This will have limited patient impact. us David Ortega MD CHEMISTRY ORDERABLES Final Res ult [facility] CLIA# [id number] [address] [place] [address] * (ABNORMAL) COMPREHENSIVE METABOLIC PANEL (12/31/2016 2:26 AM CDT) SODIUM 138 136 - 145 mmol/L 12/31/2016 5:52 AM CDT [facility] POTASSIUM 4.7 3.5 - 5.1 mmol/L 12/31/2016 5:[address] [facility] CHLORIDE 102 98 - 107 mmol/L 12/31/2016 5:52 AM T [facility] CO2 27 21 - 32 mmol/L 12/31/2016 5:52 AM T [facility] CALCIUM 9.1 8.4 - 10.1 mg/dL 12/31/2016 5:52 AM T [facility] BUN 17 7 - 17 mg/dL 12/31/2016 5:52 AM T [facility] CREATININE 0.87 0.55 - 1.02 mg/dL 12/31/2016 5:52 AM T [facility] GLUCOSE 214(H) 74 - 106 mg/dL 12/31/2016 5:52 AM T [facility] TOTAL PROTEIN 8.2 6.4 - 8.2 g/dL 12/31/2016 5:52 AM T [facility] ALBUMIN 1.9(L) 3.4 - 5.0 g/dL 12/31/2016 5:52 AM CDT [facility] BILIRUBIN TOTAL 0.2 0.2 - 1.0 mg/dL 12/31/2016 5:52 AM CDT [facility] ALKALINE PHOSPHATASE 95 25 - 100 U/L 12/31/2016 5:52 AM CDT [facility] AST 9(L) 15 - 37 U/L 12/31/2016 5:52 AM CDT [facility] ALT 14 13 - 61 U/L 12/31/2016 5:52 AM CDT [facility] GFR >60 >=60 mL/min/1.7 3 sq meter 12/31/2016 5:52 AM T [facility] Comment: eGFR has not been validated for [...] sq meter 12/31/2016 5:52 AM CDT [facility] ANION GAP 9 4 - 30 mmol/L 12/31/2016 5:52 AM T [facility] Blood 12/31/2016 2:26 AM CDT 12/31/2016 5:17 AM CDT us David Ortega MD CHEMISTRY ORDERABLES Final Res ult [facility] CLIA# [id number] [address] [place] [address] * (ABNORMAL) CBC WITH DIFFERENTIAL (12/31/2016 2:26 AM CDT) WBC 13.7(H) 4.5 - 11.0 K/uL 12/31/2016 6:[address] [facility] RBC 3.66(L) 4.20 - 5.40 M/uL 12/31/2016 6:[address] [facility] HEMOGLOBIN 9.3(L) 12.0 - 16.0 g/dL 12/31/2016 6:32 AM [facility] [employer] [facility] HEMATOCRIT 29.6(L) 36.0 - 46.0 % 12/31/2016 6:32 AM [facility] [employer] [facility] MCV 80.9(L) 84.0 - 103.0 fL 12/31/2016 6:32 AM [facility] [employer] [facility] MCH 25.4(L) 27.0 - 34.0 pg 12/31/2016 6:[address] [facility] MCHC 31.4 30.0 - 35.0 g/dL 12/31/2016 6:32 AM [facility] [employer] [facility] RDW 17.4(H) 11.0 - 14.5 % 12/31/2016 6:32 AM [facility] [employer] [facility] RDW-STDEV 52.1 37.0 - 54.0 fL 12/31/2016 6:32 AM [facility] [employer] [facility] PLATELETS 767(H) 140 - 440 K/uL 12/31/2016 6:32 AM [facility] [employer] [facility] MPV 9.0 8.9 - 12.8 fL 12/31/2016 6:32 AM [facility] [employer] [facility] NEUTROPHILS 68 42 - 75 % 12/31/2016 6:32 AM [facility] [employer] [facility] LYMPHOCYTES 17(L) 24 - 44 % 12/31/2016 6:32 AM [facility] [employer] [facility] MONOCYTES 8 2 - 10 % 12/31/2016 6:32 AM [facility] [employer] [facility] EOSINOPHILS 6 0 - 7 % 12/31/2016 6:32 AM [facility] [employer] [facility] BASOPHILS 0 0 - 1 % 12/31/2016 6:32 AM [facility] [employer] [facility] IMMATURE GRANULOCYTES 1 0 - 2 % 12/31/2016 6:32 AM CDT [facility] NEUTROPHIL ABSOLUTE 9.26(H) 2.00 - 8.00 K/uL 12/31/2016 6:32 AM CDT [facility] LYMPHOCYTE ABSOLUTE 2.28 1.20 - 4.00 K/uL 12/31/2016 6:32 AM CDT [facility] MONOCYTE ABSOLUTE 1.07(H) 0.10 - 0.60 K/uL 12/31/2016 6:32 AM CDT [facility] EOSINOPHIL ABSOLUTE 0.82(H) 0.00 - 0.70 K/uL 12/31/2016 6:32 AM CDT [facility] BASOPHILS ABSOLUTE 0.06 0.00 - 0.20 K/uL 12/31/2016 6:32 AM CDT [facility] IMMATURE GRANULOCYTES ABSOLUTE 0.17(H) 0.00 - 0.10 K/uL 12/31/2016 6:32 AM CDT [facility] Blood 12/31/2016 2:26 AM CDT 12/31/2016 5:17 AM CDT Narrative [facility] - 12/31/2016 6:32 AM CDT Smear reviewed us David Ortega MD HEMATOLOGY ORDERABLES Final Re sult [facility] CLIA# [id number] [address] [place] [address] documented in this encounter Visit Diagnoses Not on filedocumented in this encounter Care Teams Leather Coverer Relationship Specialty Start Date End Date Shravan Jones DO PCP - General Family Practice 12/04/16 documented as of this encounter
--- OUTSIDE RECORDS SUMMARY | 2025-06-14 08:10 | XMS_ITS | Encounter Summary ---
Author Organization [facility] Address [address] [place] [address] Care Team Providers Care Apricot Packer Name Role Phone Shravan Jones DO Primary Care Provider [phone] Encounter Details Date Type Department Care Team (Late st Contact Info) Description 12/12/2016 Nurse Only [facility] 4D Surgery Heart Lung [address] 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 Gender Identity Not on file Sexual Orientation Not on file documented as of this encounter Plan of Treatment Not on file documented as of this encounter Visit Diagnoses Not on filedocumented in this encounter Care Teams Apricot Packer Relationship Specialty Start Date End Date Shravan Jones DO PCP - General Family Practice 12/04/16 documented as of this encounter
[2025-06-14 08:16] LABS: Hematocrit 38.1 % (36-47); Hemoglobin 12.10 g/dL (11.27-16.99); Mean Corpuscular HGB Conc 31.8 g/dL (30-55); Mean Corpuscular Hemoglobin 29.4 pg (27-33); Mean Corpuscular Volume 92.7 fl (85-98); Nucleated Red Blood Cells % 0 %; Platelet Count 164 10^3/cmm (157-399); Red Blood Count 4.11 10^6/uL (3.85-5.65); White Blood Count 7.60 10^3/uL (3.29-11.43)
[2025-06-14 08:38] LABS: INR 0.98 (0.8-1.2); Partial Thromboplastin Time 26.3 SECONDS (23.9-36.7); Prothrombin Time 13.70 SECONDS (12.1-14.9)
[2025-06-14 08:47] LABS: Alanine Aminotransferase 58 U/L (0-33); Albumin Level 4.0 g/dL (3.5-5.2); Alkaline Phosphatase 173 U/L (35-105); Blood Urea Nitrogen 18 mg/dL (6-20); Calcium 9.0 mg/dL (8.5-10.5); Carbon Dioxide 29 mmol/L (22-29); Chloride 95 mmol/L (98-107); Globulin 3.1 g/dL (1.3-4.6); Glucose 198 mg/dL (65-115); Lipase 23 U/L (13-60); NT Pro B Type Natriuretic Pept 31660 pg/mL (0-125); Osmolality Calculated 289 mOsm/kg (285-295); Sodium 136 mmol/L (136-145); Total Protein 7.1 g/dL (6.6-8.7)
[2025-06-14 08:54] LABS: Anion Gap 16.9 (5-19); Aspartate Amino Transferase 37 U/L (0-32); Potassium 4.9 mmol/L (3.5-5.1)
[2025-06-14 08:55] LABS: Troponin(5th) Baseline 177 ng/L (0-10)
[2025-06-14 09:04] VITALS: PULSE 75; RESP 16; O2SAT 100
--- NOTE | 2025-06-14 09:33 | ECG_ITS ---
Pryv Test Date: 2025-06-14 Pat Name: Donita Aguilar Department: Room: Gender: Female Title Coordinator: : 1985 Requested By: Dawna Nick Order Number: [id number] Reading MD: JOSEFA TALLEY Measurements Intervals [place] Rate: 72 P: 9 GA: 160 QRS: -13 QRSD: 106 T: 40 QT: 435 QTc: 478 Interpretive Statements SINUS RHYTHM INFERIOR MYOCARDIAL INFARCTION , PROBABLY OLD [40+ ms Q WAVE AND/OR ST/T ABNORMALITY IN II/aVF] Compared to ECG 06/14/2025 08:03:02 Myocardial infarct finding now present Electronically Signed On 06-16-2025 20:44:44 SCENIC DESIGNER by JOSEFA TALLEY [email or web address]
[2025-06-14] MEDS: ondansetron 2 mg/ML SDV 2 mL 4 MG IVP (10:42)
[2025-06-14 10:43] VITALS: RESP 18; O2SAT 100
[2025-06-14] MEDS: morphine 4 mg/mL SDV 1 mL IVP (10:43)
[2025-06-14 10:46] VITALS: BP 120/69; PULSE 72; O2SAT 100
== END 2025-06-14 11:05 | disposition home or self-care (01) ==
PROVIDERS: Emergency Provider Emergency Medicine; PCP Nurse Practitioner Family
DX: R07.9 Chest pain, unspecified (principal); Z79.4 Long term (current) use of insulin; Z79.82 Long term (current) use of aspirin; Z79.02 Long term (current) use of antithrombotics/antiplatelets; E10.22 Type 1 diabetes mellitus with diabetic chronic kidney disease; I13.2 Hypertensive heart and chronic kidney disease with heart failure and with stage 5 chronic kidney disease, or end stage renal disease; I50.9 Heart failure, unspecified; N18.6 End stage renal disease; Z99.2 Dependence on renal dialysis; J44.9 Chronic obstructive pulmonary disease, unspecified
CPT/HCPCS: 36415; 71045; 80053; 83690; 83880; 84484; 85025; 85610; 85730; 93005; 96374; 96375; 99285; J2270; J2405

== ENCOUNTER 2025-06-17 22:59 | Emergency (ER) | payer MEDICARE, MEDICAID, SELFPAY ==
--- OUTSIDE RECORDS SUMMARY | 2025-06-17 23:04 | XMS_ITS | Continuity of Care Document ---
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 cardiac catheterization completed [facility] 12/06/2023 13:11:07 11/28/19 24 imaging guided percutaneous transluminal angioplasty of coronary artery with contrast completed [facility] 10/05/2024 10:22:55 11/27/19 24 plain X-ray of chest completed [facility] 11/28/2023 10:19:35 10/24/19 24 imaging guided percutaneous transluminal angioplasty of coronary artery with contrast completed [facility], L.L.CJacobo 10/05/2024 10:22:32 10/16/19 24 imaging guided percutaneous transluminal angioplasty of coronary artery with contrast completed [facility] L.L.CJacobo 10/05/2024 10:22:12 10/07/19 24 plain X-ray of chest completed [facility], DonteLJacoboCJacobo 10/08/2023 17:52:40 09/20/19 24 echocardiography completed [facility], LJacoboL.CJacobo 09/26/2023 12:48:56 lobectomy of lung completed XIMENAMAHI KEATING [facility], KaelynCJacobo 10/10/2023 12:32:47 amputation completed [facility], LJacoboL.CJacobo 08/24/2024 12:24:04 cholecystectomy completed [facility], DonteLJacoboCJacobo 09/13/2024 14:49:22 Imaging Results None recorded. Procedure Notes None recorded. Medical Equipment None Reported. Allergies Allergen ID Allergen Name Allergen Category Reaction Reaction Severity Criticality Documentation Date Start Date Code Code System Note Provider Name and Address Organization Details Recorded Time 91816 acetamino phen medicatio n abdominal pain moderate low 01/19/20232021 161 RxNorm GI upset /into leran graham coles [facility] 4 07:57:42 77530 acetamino phen medicatio n Not available Not available Not available 02/21/20242023 161 RxNorm NAJMA HOUSER, [facility] [address] [place], [address] , [facility], DonteL.CJacobo 5 15:59:31 67663 ranolazin e medicatio n Not available Not available Not available 04/14/2025 71028 RxNorm Hallu cinat ions XIMENA coles [facility] LJacoboL.C. 11:33:58 Medications Name Sig Start Date [...] wanted her to decrease to 100mg TID [facility] [place], 02/27 and 02/28 Not Available Not Available [...] metoclopr amide 10 mg tablet TAKE 1/2 (ONE-RAEGAN F) TABLET BY MOUTH THREE TIMES DAILY [...] times per day 10/09 completed VO CH/jl; 89716; Recorded 05/14/20 19 10:02AM by Leydi Jessica [...] Last Updated DateTime 152.4 cm 27.7 kg/m2 87595.1 2 g 98 % 80 /min 18 /min 136/80 mm[Hg] XIMENA KEATING [facility] 15:40:44 Social History Question Answer Notes LastModified by Organizat ion Details LastModified Time Tobacco Smoking Status Former Smoker Quit 07/[address] [email or web address] 12/24/2023 12:30:16 What Type Of Diet Are You Following? REGULAR [email or web address] Information not available 12/24/2023 Which Illicit Or Recreational Drugs Have You Used? Smokes Meth [email or web address] Information not available 10/10/2023 When Did You Quit Smoking? 1-5yearssin celastcigar ette Information not available 12/24/2023 What Was The Date Of Your Most Recent Tobacco Screening? 12/24/2023 Information not available 12/24/2023 What Is Your Current Pack Years? 20-29packye ars Information not available 12/24/2023 What Is Your Relationship Status? Single [email or web address] Information not available 12/24/2023 At What Age [...] or recreational drugs? Yes Quit Meth 07/2023 [email or web address] Information not available 12/24/2023 Do you or have you ever used any other forms of tobacco or nicotine? No Information not available 12/24/2023 What is your level of alcohol consumption? None Information not available 10/10/2023 Are you currently employed? No disabled [email or web address] Information not available 10/10/2023 Are you able to walk independently without assistance or assistive devices? YESASSIST [email or web address] Information not available 10/10/2023 Are you able to care for yourself independently? No Mother is her caregiver. [email or web address] Information not available 10/10/2023 Do you or have you ever used any nicotine-free cigarettes, vape, or chewing tobacco? No Information not available 12/24/2023 Mental Status None recorded. Family History Relationship Description Onset Age of this Age Resolved Age Notes LastModified by Organization Details LastModified Time Mother Myocardial infarction In her 50's [email or web address] Not available 12/29/2023 23:44:26 Mother Rheumatoid arthritis [email or web address] Not available 12/28 23:44:44 Brother Acute lymphoid leukemia [email or web address] Not available 10/18 18:24:23 Medical History Condition [...] pneumococcal polysaccharide PPV23 8 completed SUZANNE HEATON [address] [place] [address], [address], [facility] 12/24/2023 12:51:09 Past Encounters Encounter ID Performer Location Encounter Start Date Encounter Closed Date Diagnosis/Indication Diagnosis SNOMED-CT Code Diagnosis ICD10 Code Diagnosis IMO Codes Diagnosis Note [id number] SUZANNE HEATON [facility] ([facility]) [address] [place] [address] 04/14/2025 11:22:24 04/14/2025 14:24:51 Chronic chest pain 0120477351 06244 R07.9 G89.29 957423 Essential hypertension 82353597 I10 23938 Took her blood pressure medication about an hour ago. Pressure at home has been pretty good. Type 1 mainor betes mellitus 17541693 E10.[address] Ortega. Will schedule pump training with patient on a MWF. Will have chief knowledge officer set up a time where she can use an exam room here. [id number] SUZANNE HEATON [facility] ([facility]) [address] [place] [address] 05/05/2025 14:52:32 05/05/2025 16:30:15 Pain of knee region 6029442539 M25.569 Chest pain 15398951 R07. 9 118169 Recurrent. Following with cardiology . Recently started colchicine daily and it has been helpful. Chronic ki dney disease stage 5 667069241 N18.5 Z99.2 Currently on dialysis. Generalize d anxiety disorder 13887346 F41.1 53848 Unable to lay still for MRI. Will [...] 05/05/2025 1 [place] Donita Aguilar [id number] Donita Augilar 05/05/2025 2 [place] Donita Aguilar [id number] Donita Aguilar Notes Date Note Type Note Provider Name and Address Organization Details Recorded Time 05/05/2025 text/html Generalized Anxi ety DisorderReported by Patient Joint PainReported by PatientHPIFor quality, patient reportsdull. For location, patient reportsleft knee. For severity, patient reportsno change. For duration, patient reportspresent <1 month. For timing, patient reportsconstant. NAJMA HOUSER, [facility] [address] [place], [address], [facility], Billie 05/06/2025 10:11:39 OBGyn Episode No OBEpisode recorded.
--- OUTSIDE RECORDS SUMMARY | 2025-06-17 23:04 | XMS_ITS | Clinical Summary ---
Author Organization [facility] Facility Address [address] [address] Care Team Providers Care Intervention Analyst Name Role Phone Alexis Garcia MD Primary Care Provider [phone] Encounters Date Type Department Care Team Description 06/10/2025 Orders Only [facility], [facility] [address] [place] [address] Chey Navas MD 06/08/[address] [place] [address] [facility], [facility] [address] [place] [phone] Karlene Cespedes NP End stage renal disease; Dependence on renal dialysis 06/03/2025 Orders Only [facility], [facility] [address] [place] [address] Chey Navas MD 06/01/[address] [place] [address] [facility], [facility] [address] [place] [address] Karlene Cespedes NP End stage renal disease; Dependence on renal dialysis 05/27/2025 Orders Only [facility], [facility] [address] [place] [phone] Chey Navas MD 05/25/2025 [facility], [facility] [address] [place] [address] Melissa Wiley NP Secondary hyperaldosteronism; Protein-calorie malnutrition; End stage renal disease; Dependence on renal dialysis 05/19/2025 Orders Only [facility], [facility] [address] [place] [phone] Chey Navas MD 05/17/2025 [facility], [facility] [address] [place] [address] Melissa Wiley, HAYDEE End stage renal disease; Dependence on renal dialysis 05/13/2025 Orders [facility], [facility] [address] [place] [address] Chey Navas MD 05/11/2025 [facility], [facility] [address] [place] [address] Chey Navas MD 05/11/2025 Treatment [facility], [facility] [address] [place] [address] Chey Navas MD End stage renal disease; Dependence on renal dialysis 05/06/2025 Orders [facility], [facility] [address] [place] [address] Chey Navas MD 05/04/2025 Orders Only [facility], [facility] [address] [place] [address] Chey Navas MD 05/04/[address] [place] [address], [facility] [address] [place] [address] Melissa Wiley NP End stage renal disease; Dependence on renal dialysis 04/29/2025 Orders [facility], [facility] [address] [place] [address] Chey Navas MD 04/27/[address] [place] [address] Nephrology [facility], [facility] [address] [place] [address] Melissa Wiley NP End stage renal disease; Dependence on renal dialysis 04/22/2025 Orders [facility], [facility] [address] [place] [address] Chey Navas MD 04/20/[address] [place] [address], [facility] [address] [place] [address] Chey Navas MD End stage renal disease; Dependence on renal dialysis 04/15/2025 Orders Only [facility], [facility] [address] [place] [address] Chey Navas MD 04/13/2025 Orders [facility], [facility] [address] [place] [address] Chey Navas MD 04/13/[address] [place] [address], [facility] [address] [place] [address] Melissa Wiley NP End stage renal disease; Dependence on renal dialysis 04/01/2025 Orders [facility], [facility] [address] [place] [address] Chey Navas MD 03/30/[address] [place], [place] [address]rology [facility], [facility] [address] [place] [address] Karlene Cespedes NP End stage renal disease; Dependence on renal dialysis 03/25/[address] [place] [address], [facility] [address] [place] [address] Melissa Wiley NP End stage renal disease; Dependence on renal dialysis 03/25/2025 Orders Only [facility], [facility] [address] [place] [address] Chey Navas MD from Last [...] 03/25/2025 CHEMISTRY Routine 03/25/2025 HEMATOLOGY Routine 03/25/2025 from Last 3 Months Results * (ABNORMAL) Hemoglobin (06/10/2025) Only the most recent of5 resultswithin the time period is included. Hemoglobin 10.6(L) 11.7 - 14.0 g/dL [facility] 06/10/2025 06/09/2025 11: 21 AM INCINERATOR ATTENDANT Narrative Resulting Agency Comment Performing Organization Information: Site ID: FRANCISCO JAVIER Name: [facility] Address: [address] [place] [phone] Director: Jennifer De Jesus MD Chey Navas MD LAB BLOOD ORDERABLES Final Re sult Performing Organization Address [facility] de Phone Number [facility] [address] * (ABNORMAL) Iron and TIBC (05/27/2025) Only the most recent of2 resultswithin the time period is included. Iron, Total 89 40 - 190 mcg/dL [facility] TIBC 201(L) 250 - 450 mcg/dL (calc) [facility] Iron Saturation (TSat) 44 16 - 45 % (calc) [facility] 05/27/2025 05/26/2025 1:1 3 PM INCINERATOR ATTENDANT Narrative Resulting Agency Comment Performing Organization Information: Site ID: FRANCISCO JAVIER Name: [facility] Address: [address] [place] [phone] Director: Jennifer De Jesus MD Chey Navas MD LAB BLOOD ORDERABLES Final Re sult Performing Organization Address [facility] [[email or web address]] Co de Phone Number [facility] [phone] * SPECIMEN INTEGRITY COMPROMISED (05/27/2025) SPECIMEN INTEGRITY COMPROMISED [facility] Comment: Whole blood, unspun or partially spun gel barrier tube was received more than 6 hours since collection. A false elevation of K, Phos and LD as well as a false decrease in glucose may occur due to prolonged contact with red cells. 05/27/2025 05/26/2025 1:1 3 PM INCINERATOR ATTENDANT Narrative Resulting Agency Comment Performing Organization Information: Site ID: FRANCISCO JAVIER Name: [facility] Address: [address] [place] [address] Director: Jennifer De Jesus MD Chey Navas MD LAB BLOOD ORDERABLES Final Re sult Performing Organization Address City/[facility] [[email or web address]] Co de Phone Number [facility] [address] [facility] [place] [address] * [facility] Results (05/27/2025) Only the most recent of4 resultswithin the time period is included. eKt/V (Tattersall) 1.42 [facility] eKdrt/V 1.41 [facility] WSTDKT/V 2.5 [facility] nPCR_HD 0.63 [facility] eKt/V Gotch 1.41 [facility] e Center PCR 36.52 [facility] spKt/V Gotch 1.67 [facility] Center spKt/V (Daugirdas II) 1.66 [facility] eNPCR 0.59 [facility] 05/27/2025 05/27/2025 [facility] Ordering Provider LAB BLOOD ORDERABLES Final Result Performing Organization Address City/[facility]/ZIP Co de Phone Number [facility] Contact Performing lab Unknown, [place] * Post Dialysis BUN (05/27/2025) Only the most recent of4 resultswithin the time period is included. BUN Post Dialysis 7 7 - 25 mg/dL [facility] 05/27/2025 05/26/2025 1:1 3 PM INCINERATOR ATTENDANT Narrative Resulting Agency Comment Performing Organization Information: Site ID: FRANCISCO JAVIER Name: [facility] Address: [address] [place] [phone] Director: Jennifer De Jesus MD Chey Navas MD LAB BLOOD ORDERABLES Final Re sult Performing Organization Address [facility] [[email or web address]] Co de Phone Number [facility] [address] [place] [phone] * Differential with WBC (05/27/2025) Only the [...] [facility] 05/27/2025 05/26/2025 1:1 3 PM INCINERATOR ATTENDANT Narrative Resulting Agency Comment Performing Organization Information: Site ID: FRANCISCO JAVIER Name: Alona Major Address: [address] [place] [phone] Director: Jennifer De Jesus MD Chey Navas MD LAB BLOOD ORDERABLES Final Re sult Performing Organization Address [facility]/ZIP Co de Phone Number [facility] [address] [place] [phone] * Platelet count (05/27/2025) Only the most recent of2 resultswithin the time period is included. Platelets 154 140 - 400 Thousand/uL [facility] 05/27/2025 05/26/2025 1:1 3 PM INCINERATOR ATTENDANT Narrative Resulting Agency Comment Performing Organization Information: Site ID: FRANCISCO JAVIER Name: Alona Major Address: [address] [place] [address] Director: Jennifer De Jesus MD Chey Navas MD LAB BLOOD ORDERABLES Final Re sult [facility] [address] [place] [phone] * (ABNORMAL) CBC (05/27/2025) Only the most [...] [facility] 05/27/2025 05/26/2025 1:1 3 PM INCINERATOR ATTENDANT Narrative Resulting Agency Comment Performing Organization Information: Site ID: FRANCISCO JAVIER Name: Alona Major Address: [address] [place] [address] [place] [address] Director: Jennifer De Jesus MD us Chey Navas MD LAB BLOOD ORDERABLES Final Re sult Performing Organization Address [facility] [[email or web address]] Co de Phone Number [facility] [address] [place] [phone] * (ABNORMAL) BUN (05/27/2025) Only the most recent of4 resultswithin the time period is included. BUN 31(H) 7 - 25 mg/dL [facility] 05/27/2025 05/26/2025 1:1 3 PM INCINERATOR ATTENDANT Narrative Resulting Agency Comment Performing Organization Information: Site ID: FRANCISCO JAVIER Name: [facility] Address: [address] [place] [phone] Director: Jennifer De Jesus MD us Chey Navas MD LAB BLOOD ORDERABLES Final Re sult Performing Organization Address [facility] [[email or web address]] Co de Phone Number [facility] [address] [place] [phone] * Sodium (05/27/2025) Only the most recent of2 resultswithin the time period is included. Pathologist [facility] Sodium 136 135 - 146 mmol/L [facility] 05/27/2025 05/26/2025 1:1 3 PM INCINERATOR ATTENDANT Narrative Resulting Agency Comment Performing Organization Information: Site ID: FRANCISCO JAVIER Name: [facility] Address: [address] [place] [phone] Director: Jennifer De Jesus MD us Chey Navas MD LAB BLOOD ORDERABLES Final Re sult Performing Organization Address [facility] [[email or web address]] Co de Phone Number [facility] [address] [place] [phone] * Protein, total (05/27/2025) Only the most recent of2 resultswithin the time period is included. Total Protein 6.6 6.1 - 8.1 g/dL [facility] 05/27/2025 05/26/2025 1:1 3 PM INCINERATOR ATTENDANT Narrative Resulting Agency Comment Performing Organization Information: Site ID: FRANCISCO JAVIER Name: Alona Major Address: [address] [place] [phone] Director: Jennifer De Jesus MD us Chey Navas MD LAB BLOOD ORDERABLES Final Re sult Performing Organization Address City/[facility]/ZIP Co de Phone Number [facility] [phone] [place] [phone] * Potassium (05/27/2025) Only the most recent of3 resultswithin the time period is included. Potassium 4.3 3.5 - 5.3 mmol/L [facility] 05/27/2025 05/26/2025 1:1 3 PM INCINERATOR ATTENDANT Narrative Resulting Agency Comment Performing Organization Information: Site ID: FRANCISCO JAVIER Name: Alona Major Address: [address] [place] [phone] Director: Jennifer De Jesus MD us Chey Navas MD LAB BLOOD ORDERABLES Final Re sult Performing Organization Address [facility] de Phone Number [facility] [address] [place] [phone] * (ABNORMAL) Phosphorus (05/27/2025) Only the most recent of2 resultswithin the time period is included. Phosphorus 5.8(H) 3.0 - 4.5 mg/dL [facility] 05/27/2025 05/26/2025 1:1 3 PM INCINERATOR ATTENDANT Narrative Resulting Agency Comment Performing Organization Information: Site ID: FRANCISCO JAVIER Name: Alona Videsa Address: [address] [place] [phone] Director: Jennifer De Jesus MD us Chey Navas MD LAB BLOOD ORDERABLES Final Re sult Performing Organization Address [facility] [[email or web address]] Co de Phone Number [facility] [phone] [place] [phone] * (ABNORMAL) Alkaline phosphatase (05/27/2025) Alkaline Phosphatase 155(H) 31 - 125 U/L [facility] 05/27/2025 05/26/2025 1:1 3 PM INCINERATOR ATTENDANT Narrative Resulting Agency Comment Performing Organization Information: Site ID: FRANCISCO JAVIER Name: [facility] Address: [address] [place] [phone] Director: Jennifer De Jesus MD us Chey Navas MD LAB BLOOD ORDERABLES Final Re sult Performing Organization Address [facility] de Phone Number [facility] [phone] * (ABNORMAL) PTH, Intact (05/27/2025) Only the [...] Normal High 05/27/2025 05/26/2025 1:1 3 PM INCINERATOR ATTENDANT Narrative Resulting Agency Comment Performing Organization Information: Site ID: FRANCISCO JAVIER Name: [employer] Address: [address] [place] [phone] Director: Jennifer De Jesus MD us Chey Navas MD LAB BLOOD ORDERABLES Final Re sult Performing Organization Address [facility] [[email or web address]] Co de Phone Number [facility] [address] [facility] [place] [address] * Magnesium (05/27/2025) Pathologist [facility] Magnesium 2.0 1.6 - 2.5 mg/dL [facility] 05/27/2025 05/26/2025 1:1 3 PM INCINERATOR ATTENDANT Narrative Resulting Agency Comment Performing Organization Information: Site ID: FRANCISCO JAVIER Name: Alona Major Address: [address] [place] [address] Director: Jennifer De Jesus MD Chey Navas MD LAB BLOOD ORDERABLES Final Re sult Performing Organization Address [facility] de [facility] Number [facility] [address] [place] [address] [place] [address] * (ABNORMAL) Hemoglobin A1c (05/27/2025) Pathologist [facility] Hemoglobin A1C 6.4(H) <5.7 % [facility] [...] for children. 05/27/2025 05/26/2025 1:1 3 PM INCINERATOR ATTENDANT Narrative Resulting Agency Comment Performing Organization Information: Site ID: FRANCISCO JAVIER Name: Alona Major Address: [place] [address] Director: Jennifer De Jesus MD us Chey Navas MD LAB BLOOD ORDERABLES Final Re sult Performing Organization Address City/[facility] [[email or web address]] Co de Phone Number [facility] [phone] [place] [phone] * (ABNORMAL) Glucose, random (05/27/2025) Only the most recent of2 resultswithin the time period is included. Glucose 115(H) 65 - 99 mg/dL [facility] Comment: For someone without known diabetes, a glucose value between 100 and 125 mg/dL is consistent with prediabetes and should be confirmed with a follow-up test. 05/27/2025 05/26/2025 1:1 3 PM INCINERATOR ATTENDANT Narrative Resulting Agency Comment Performing Organization Information: Site ID: [place] Name: [facility] Address: [address] [place] [phone] Director: Jennifer De Jesus MD Chey Navas MD LAB BLOOD ORDERABLES Final Re sult Performing Organization Address [facility] [[email or web address]] Co de Phone Number [facility] [phone] * (ABNORMAL) Ferritin (05/27/2025) Ferritin 1,011(H) 16 - 154 ng/mL [facility] 05/27/2025 05/26/2025 1:1 3 PM INCINERATOR ATTENDANT Narrative Resulting Agency Comment Performing Organization Information: Site ID: FRANCISCO JAVIER Name: [facility] Address: [address] [place] [phone] Director: Jennifer De Jesus MD Chey Navas MD LAB BLOOD ORDERABLES Final Re sult Performing Organization Address [facility]/ZIP Co de Phone Number [facility] [phone] * (ABNORMAL) Creatinine, serum (05/27/2025) Only the most recent of2 resultswithin the time period is included. Creatinine 6.06(H) 0.50 - 0.97 mg/dL [facility] 05/27/2025 05/26/2025 1:1 3 PM INCINERATOR ATTENDANT Narrative Resulting Agency Comment Performing Organization Information: Site ID: FRANCISCO JAVIER Name: Alona Major Address: [address] [place] [phone] Director: Jennifer De Jesus MD us Chey Navas MD LAB BLOOD ORDERABLES Final Re sult Performing Organization Address [facility] [[email or web address]] Co de Phone Number [facility] [phone] [place] [phone] * Chloride (05/27/2025) Only the most recent of2 resultswithin the time period is included. Chloride 98 98 - 110 mmol/L [facility] 05/27/2025 05/26/2025 1:1 3 PM INCINERATOR ATTENDANT Narrative Resulting Agency Comment Performing Organization Information: Site ID: FRANCISCO JAVIER Name: Alona Major Address: [address] [place] [phone] Director: Jennifer De Jesus MD us Chey Navas MD LAB BLOOD ORDERABLES Final Re sult Performing Organization Address [facility] de Phone Number [facility] [address] [place] [phone] * CO2 (05/27/2025) Only the most recent of2 resultswithin the time period is included. Bicarbonate (CO2) 27 20 - 29 mmol/L [facility] 05/27/2025 05/26/2025 1:1 3 PM INCINERATOR ATTENDANT Narrative Resulting Agency Comment Performing Organization Information: Site ID: FRANCISCO JAVIER Name: Alona Major Address: [address] [place] [phone] Director: Jennifer De Jesus MD us Chey Navas MD LAB BLOOD ORDERABLES Final Re sult Performing Organization Address [facility]/ZIP Co de Phone Number [facility] [address] [place] [phone] * (ABNORMAL) Calcium (05/27/2025) Only the most recent of2 resultswithin the time period is included. Calcium 8.2(L) 8.6 - 10.0 mg/dL [facility] 05/27/2025 05/26/2025 1:1 3 PM INCINERATOR ATTENDANT Narrative Resulting Agency Comment Performing Organization Information: Site ID: FRANCISCO JAVIER Name: [facility] Address: [address] [place] [phone] Director: Jennifer De Jesus MD Chey Navas MD LAB BLOOD ORDERABLES Final Re sult Performing Organization Address [facility] de Phone Number [facility] [phone] * (ABNORMAL) Albumin (05/27/2025) Only the most recent of2 resultswithin the time period is included. Albumin 3.4(L) 3.6 - 5.1 g/dL [facility] 05/27/2025 05/26/2025 1:1 3 PM INCINERATOR ATTENDANT Narrative Resulting Agency Comment Performing Organization Information: Site ID: FRANCISCO JAVIER Name: [facility] Address: [address] [place] [phone] Director: Jennifer De Jesus MD Chey Navas MD LAB BLOOD ORDERABLES Final Re sult Performing Organization Address [facility] [[email or web address]] Co de Phone Number [facility] [phone] * (ABNORMAL) HEMATOLOGY (04/22/2025) Only the most recent of4 resultswithin the time period is included. Hemoglobin 9.6(L) 12.0 - 16.0 g/dL [facility] Hemoglobin x 3 28.8(L) 36.0 - 48.0 % [facility] 04/22/2025 04/23/2025 9:0 0 AM CDT Narrative [facility] - 04/23/2025 Unless otherwise specified, test(s) performed at: [facility], [address] [place] [address] RISK OFFICER: Jose Luis France M.D. For any questions, please call customer service at FREQUENCY:OTHER Resulting Agency Comment Specimen source: Blood us Chey Navas MD LAB BLOOD ORDERABLES Final Re sult Performing Organization Address [facility] de Phone Number [facility] See order comments or contact performing lab Unknown, [place] * (ABNORMAL) [facility] Chemistry (04/13/2025) Only the most recent of2 resultswithin the time period is included. PTH 561(H) 16 - 80 pg/mL [facility] 04/13/2025 04/14/2025 9:5 3 AM CDT [facility]ative [facility] 04/14/2025 Unless otherwise specified, test(s) performed at: [facility], [address] [place] [address] RISK OFFICER: Jose Luis France M.D. For any questions, please call customer service at FREQUENCY:OTHER Resulting Agency Comment Specimen source: Plasma us Chey Navas MD LAB BLOOD ORDERABLES Final Re sult Performing Organization Address [facility] de Phone Number [facility] See order comments or contact performing lab Unknown, [place] * [facility] [employer] (03/25/2025) % Urea Reduction 79 65 - 80 % [facility] 03/25/2025 03/26/2025 11: 23 AM CDT Narrative Resulting Agency Comment Specimen source: Plasma us Chey Navas MD LAB BLOOD ORDERABLES Final Re sult Performing Organization Address [facility]/ZIP Co de Phone Number [facility] See order comments or contact performing lab Unknown, [place] * (ABNORMAL) POST CHEMISTRY (03/25/2025) BUN Post Dialysis 5(L) 6 - 19 mg/dL [facility] 03/25/2025 03/26/2025 11: 23 AM CDT Narrative [facility] - 03/26/2025 Unless otherwise specified, test(s) performed at: [facility], [address] [place] [address] RISK OFFICER: Jose Luis France M.D. For any questions, please call customer service at FREQUENCY:MONTHLY Resulting Agency Comment Specimen source: Plasma us Chey Navas MD LAB BLOOD ORDERABLES Final Re sult Performing Organization Address [facility] [[email or web address]] Co de Phone Number [facility] See order comments or contact performing lab Unknown, [place] from Last 3 Months Insurance Medicaid [place] ([id number]) Medicare Care Teams Intervention Analyst Relationship Specialty Start Date End Date Alexis Garcia MD [address] [place] [address] PCP - General Family Medicine 04/16/22
--- OUTSIDE RECORDS SUMMARY | 2025-06-17 23:04 | XMS_ITS | Encounter Summary ---
Author Organization [facility], [facility] Address [address] [place] [address] Phone Care Team Providers Care Metal Sash Setter Name Role Phone Alexis Garcia MD Primary Care Provider [phone] Encounter Details Date Type Department Care Team (Late st Contact Info) Description 12/29/2024 TCM in Dialysis Clinic [facility], [facility] [address] [place] [address] Yann Lozano NP [address] [place] [address] Social History Tobacco Use Types [...] Donita Aguilar : 1985 C: [facility] Note Type: Dialysis TCM Service Date: 12/29/2024 The patient was seen for a lvdq-ac-ddwl visit as part of Transitional Care Management services. Attending Smoke Eater: MACHO JOHANSEN Dialysis Location: [facility] Schedule: Shift: 2 INTERACTIVE CONTACT This uaii-lq-edop visit occurred within 2 business days of the patient?s discharge. COMMENTS: Seen on HD machine during dialysis HOSPITALIZATION SUMMARY Patient transitioned from: Hospital Patient transitioned to: Home Admit Date: 12/26/2024 Discharge Date: 12/28/2024 Discharged info reviewed: No outstanding diagnostic tests and treatments Reason for admission: Admission Dx: CP Discharge Dx: Non-cardiac chest pain ESRD Atherosclerotic heart disease of [place] coronary artery with other forms of angina [...] Three times a day [facility]. [facility] Allergies Allergen: acetaminophen Reaction: Nausea/Vomiting [...] to follow with cardiology, pcp, pulmonology and rescue instructor as noted on discharge. EDUCATION Education relevant [...] or secondary infection VISIT DIAGNOSES CPT Code 70366 - High complexity, seen within 7 days of discharge. I20.9 Angina pectoris (HCC) COMMENTS: Verified she has nitroglycerin on hand at home: reviewed appropriate usage. Instructed to call cardiology for follow up appointment K76.0 Fatty (change of) liver, not elsewhere classified COMMENTS: Newly dx on imaging. Per hospital records, has been referred to rescue instructor. Monitor for liver dysfunction, assess for any needed support J18.9 Pneumonia, unspecified organism COMMENTS: Monitor for impaired perfusion, fever/chills, increased SOB. If symptoms present, send for CXray. Advised to call pulmonology for follow up as referred by hospital I25.118 Atherosclerotic heart disease of [place] coronary artery with other forms of angina pectoris COMMENTS: RCA is moderate size and caliber vessel which is dominant had proximal 40% stenosis. Left main has luminal irregularity with distal 10% stenosis. Cardiology recommended medical management. Negative for angina on assessment today Reviewed symptoms, usage of nitro: instructed to call cardiology for follow up appt. I27.166 Atherosclerosis of other coronary artery bypass graft(s) [...] on filedocumented in this encounter Care Teams Metal Sash Setter Relationship Specialty Start Date End Date Alexis Garcia MD [address] [place] [address] PCP - General Family Medicine 04/16/22 documented as of this encounter
--- OUTSIDE RECORDS SUMMARY | 2025-06-17 23:05 | XMS_ITS | Encounter Summary ---
Author Organization [facility] Address [address] [place] [address] Care Team Providers Care River Captain Name Role Phone Shravan Jones DO Primary Care Provider [phone] Encounter Details Date Type Department Care Team (Latest Contact Info) Description 05/14/2003 [facility] [place] [address] Jimmy Tineo, CLIVES NO ADDRESS ON FILE UNSPEC DENTAL CARIES (Primary Dx); TOOTH POSITION ANOMALY Social History Tobacco Use Types Packs/Day Years Used Date Smoking Tobacco: Never Assessed Comments Unknown Sex and Gender Information Value Date Recorded Sex Assigned at Not on file Legal Sex Female 4:38 AM [employer] 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
--- OUTSIDE RECORDS SUMMARY | 2025-06-17 23:05 | XMS_ITS | Continuity of Care Document ---
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 X-ray of chest completed [facility] 03/31/2025 11:10:09 03/21/20 25 plain X-ray of chest completed [facility] 03/31/2025 11:07:12 03/04/20 25 plain X-ray of chest completed [facility] 03/31/2025 11:09:47 12/27/19 25 [address] of chest completed [facility], LJacoboL.C. 12/27/2024 14:20:38 12/26/19 25 plain X-ray of chest completed [facility] 12/27/2024 14:13:55 11/11/19 25 plain X-ray of cervical spine completed [facility] 11/11/2024 12:44:02 10/01/19 25 angiography completed [facility] 10/01/2024 18:38:18 09/27/19 25 plain X-ray of chest completed [facility].L.CJacobo 09/27/2024 18:18:09 09/27/19 25 echocardiography completed [facility] 10/01/2024 18:33:00 09/22/19 25 ultrasonography of right breast completed [facility], L[facility]oboL.C. 09/21/2024 13:39:24 09/22/19 25 mammography completed [facility], L[facility]oboL.C. 09/21/2024 13:40:36 09/11/[address] of abdomen completed [facility], LJacoboLJacoboCJacobo 09/13/2024 14:56:32 09/10/19 25 angiography of coronary artery completed [facility], KaelynCJacobo 09/13/2024 14:50:21 09/09/19 25 echocardiography completed [facility], KaelynCJacobo 09/13/2024 14:54:55 09/08/19 25 plain X-ray of chest completed [facility], KaelynCJacobo 09/13/2024 14:57:51 08/24/[address] of chest completed [facility], Billie 08/24/2024 12:28:02 04/28/20 24 plain X-ray of chest completed [facility], Billie 04/30/2024 11:08:42 03/31/20 24 plain X-ray of chest completed [facility], Billie 04/01/2024 14:05:05 03/27/20 24 imaging guided percutaneous transluminal angioplasty of coronary artery with contrast completed [facility], Billie 10/05/2024 10:23:19 02/28/20 24 radiographic procedure on chest and/or abdomen completed [facility], KaelynCJacobo 03/04/2024 15:02:31 02/28/[address] of abdomen completed [facility], DonteLJacoboCJacobo 03/04/2024 15:03:26 01/19/20 24 diagnostic radiography of abdomen completed [facility], Billie 01/21/2024 17:26:25 01/06/20 24 plain X-ray of chest completed [facility], KaelynCJacobo 01/07/2024 15:42:42 12/27/19 24 plain X-ray of chest completed [facility], Billie 12/29/2023 23:23:06 12/27/19 24 CT of chest, abdomen and pelvis completed [facility], Billie 12/29/2023 23:32:58 12/24/19 24 plain X-ray of chest completed [facility], Billie 12/29/2023 23:56:29 12/20/[address] of chest completed [facility], Billie 12/21/2023 12:33:52 12/20/19 24 plain X-ray of chest completed [facility], Billie 12/21/2023 12:34:44 12/09/19 24 plain X-ray of chest completed [facility], Billie 12/12/2023 10:16:37 12/05/19 24 plain X-ray of chest completed [facility], Billie 12/06/2023 13:24:46 11/28/19 24 cardiac catheterization completed [facility], Billie 12/06/2023 13:11:07 11/28/19 24 imaging guided percutaneous transluminal angioplasty of coronary artery with contrast completed [facility], Billie 10/05/2024 10:22:55 11/27/19 24 plain X-ray of chest completed [facility], KaelynCJacobo 11/28/2023 10:19:35 10/24/19 24 imaging guided percutaneous transluminal angioplasty of coronary artery with contrast completed [facility], Billie 10/05/2024 10:22:32 10/16/19 24 imaging guided percutaneous transluminal angioplasty of coronary artery with contrast completed [facility], Billie 10/05/2024 10:22:12 10/07/19 24 plain X-ray of chest completed [facility] L.L[facility]CJacobo 10/08/2023 17:52:40 09/20/19 24 echocardiography [address] [facility], LJacoboL.CJacobo 09/26/2023 12:48:56 lobectomy of lung completed XIMENA KEATING [facility], LJacoboL.CJacobo 10/10/2023 12:32:47 amputation completed XIMENA KEATING [facility], LJacoboLJacoboCJacobo 08/24/2024 12:24:04 cholecystectomy completed XIMENA KEATING [facility] L.L[facility]obo 09/13/2024 14:49:22 Imaging Results None recorded. Procedure Notes None recorded. Medical Equipment None Reported. Allergies Allergen ID Allergen Name Allergen Category Reaction Reaction Severity Criticality Documentation Date Start Date Code Code System Note Provider Name and Address Organization Details Recorded Time 46056 acetamino phen medicatio n abdominal pain moderate low 01/19/20232021 161 RxNorm GI upset /into leran ce nAh coles [facility] 4 07:57:42 01061 acetamino phen medicatio n Not available Not available Not available 02/21/20242023 161 RxNorm ELIZABETH HOUSER, [address], [address] , [facility]obo 5 15:59:31 84271 ranolazin e medicatio n Not available Not available Not available 04/14/2025 60232 RxNorm [facility] 11:33:58 Medications Name Sig [...] wanted her to decrease to 100mg TID [facility], 02/27 and 02/28 Not Available Not Available [...] times per day 10/09 completed VO CH/jl; 31694; Recorded 05/14/20 19 10:02AM by Leydi Jessica [...] Last Updated DateTime 152.4 cm 27.7 kg/m2 90642.1 2 g 98 % 78 /min 18 /min 158/82 mm[Hg] XIMENA KEATING [facility] 11:21:53 Social History Question Answer Notes LastModified by Organizat ion Details LastModified Time Tobacco Smoking Status Former Smoker Quit 07/2023 [facility] KEATING [facility] 12/24/2023 12:30:16 What Type Of Diet Are You Following? REGULAR [email or web address] Information not available 12/24/2023 Which Illicit Or Recreational Drugs Have You Used? Smokes Meth [email or web address] Information not available 10/10/2023 When Did You Quit Smoking? 1-5yearssin celastcigar ette Information not available 12/24/2023 What Was The Date Of Your Most Recent Tobacco Screening? 12/24/2023 Information not available 12/24/2023 What Is Your Current Pack Years? 20-29packye ars Information not available 12/24/2023 What Is Your Relationship Status? Single [email or web address] Information not available 12/24/2023 At What Age [...] is your level of alcohol consumption? None [email or web address] Information not available 10/10/2023 Are you currently employed? No disabled Information not available 10/10/2023 Are you able to walk independently without assistance or assistive devices? YESASSIST Information not available 10/10/2023 Are you able to care for yourself independently? No Mother is her caregiver. [email or web address] Information not available 10/10/2023 Do you or have you ever used any nicotine-free cigarettes, vape, or chewing tobacco? No Information not available 12/24/2023 Mental Status None recorded. Family History Relationship Description Onset Age of this Age Resolved Age Notes LastModified by Organization Details LastModified Time Mother Myocardial infarction In her 50's [email or web address] Not available 12/29/2023 23:44:26 Mother Rheumatoid arthritis [email or web address] Not available 12/28 23:44:44 Brother Acute lymphoid leukemia [email or web address] Not available 10/18 18:24:23 Medical History Condition [...] pneumococcal polysaccharide PPV23 8 completed ELIZABETH HOUSER, [address] [place], [address], [facility] 12/24/2023 12:51:09 Past Encounters Encounter ID Performer Location Encounter Start Date Encounter Closed Date Diagnosis/Indication Diagnosis SNOMED-CT Code Diagnosis ICD10 Code Diagnosis IMO Codes Diagnosis Note [id number] [facility]NE [facility] ([facility] [address]) [address] [place] [address] 03/03/2025 12:06:42 03/03/2025 14:00:46 Neuropathy due to diabetes mellitus 995591565 E11.40 Decrease gabapentin to 100mg three times daily. Chronic renal failure 90 502158 N18.5 73691772 Dialysis. Hyperkalemia 13029120 E8 7.5 9805 Labs checked yesterday at Dialysis. Atypical chest pain 1025 [address]409 R07.89 912309 Recurrent. Following with cardiology . Recently started Isosorbide . History of abnormal cervical Papanicolaou smear 221108248 Z87.42 [id number] SUZANNE [facility] ([facility] [address]) [address] [place] [address] 03/31/2025 10:56:17 03/31/2025 12:04:26 Chronic chest pain 5707106149 77639 R07.9 G89.29 837684 Spasm 63512812 M62.838 Pain in bi lateral legs 2536074465 2896274 M79.604 M79.605 Site-speci fic infective disorders of skin 933127422 L08.9 76496 right index finger Chronic pain syndrome 37 4703258 G89.4 84077 Gabapentin . Health Concerns Section Related Observation LastModified by Organization Detai ls LastModified Time None Recorded Concern Status LastModified by Organization Details LastModified Time None Recorded Payers Encounter Date Sequence Insurance Name Policy Number Policy Varela Covered Member ID Varela Member ID Guarantor Name 03/31/2025 1 [place] Donita Aguilar [id number] Donita Aguilar 03/31/2025 2 [place] Donita Aguilar [id number] Donita Aguilar Notes Date Note Type Note Provider Name and Address Organization Details Recorded Time 5 text/html Angina/Chest PainReported by PatientHPIFor quality, patient reportsheaviness. For context, patient reportsat rest. For severity, patient reportsmoderate. For onset/timing, patient reportshas noted for yearsandintermittent. For alleviating factors, patient reportsnitroglycerinandre st. ELIZABETH CORRINA, [facility] [address] [place], [address], [facility], Billie 03/31/2025 17:08:26 OBGyn Episode No OBEpisode recorded.
--- OUTSIDE RECORDS SUMMARY | 2025-06-17 23:05 | XMS_ITS | Encounter Summary ---
Author Organization [facility] Address [address] [place] [address] Care Team Providers Care Security Police Name Role Phone Shravan Jones DO Primary Care Provider [phone] Encounter Details Date Type Department Care Team (Late st Contact Info) Description 01/02/2017 Lab Requisition [facility] [address] [place] [address] [place] [address] Izabela Diamond MD NO ADDRESS ON FILE Social History Tobacco Use Types Packs/Day Years Used Date Smoking Tobacco: Every Day Cigarettes Comments:pt lethargic Comments Unknown Sex and Gender Information Value Date Recorded Sex Assigned at Not on file 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 Gender Identity Not on file Sexual [...] - 145 mmol/L 01/02/2017 6:07 AM CDT [facility] [address] [employer] [facility] POTASSIUM 4.3 3.5 - [...] 7 - 17 mg/dL 01/02/2017 6:07 AM [facility] CREATININE 0.87 0.55 - 1.02 mg/dL 01/02/2017 6:07 AM T [facility] GLUCOSE 122(H) 74 - 106 mg/dL 01/02/2017 6:07 AM [facility] GFR >60 >=60 mL/min/1.7 [...] Final Res ult [facility] CLIA# [id number] [address] [place] [id number] * (ABNORMAL) CBC WITH DIFFERENTIAL (01/02/2017 3:00 AM CDT) [facility] WBC 10.4 4.5 - 11.0 K/uL 01/02/2017 5:44 AM [facility] RBC 4.30 4.20 - 5.40 M/uL 01/02/2017 5:44 AM [facility] HEMOGLOBIN 10.4(L) 12.0 - 16.0 g/dL 01/02/2017 5:44 AM [facility] HEMATOCRIT 34.5(L) 36.0 - 46.0 % 01/02/2017 5:44 AM [facility] MCV 80.2(L) 84.0 - 103.0 fL 01/02/2017 5:44 AM [facility] MCH 24.2(L) 27.0 - 34.0 pg 01/02/2017 5:44 AM [facility] MCHC 30.1 30.0 - 35.0 g/dL 01/02/2017 5:44 AM [facility] RDW 17.4(H) 11.0 - 14.5 % 01/02/2017 5:44 AM [facility] RDW-STDEV 51.1 37.0 - 54.0 fL 01/02/2017 5:44 AM [facility] PLATELETS 764(H) 140 - 440 K/uL 01/02/2017 5:44 AM [facility] MPV 9.2 8.9 - 12.8 fL 01/02/2017 5:44 AM [facility] NEUTROPHILS 56 42 - 75 % 01/02/2017 5:44 AM [facility] LYMPHOCYTES 27 24 - 44 % 01/02/2017 5:44 AM [facility] MONOCYTES 8 2 - 10 % 01/02/2017 5:44 AM [facility] EOSINOPHILS 7 0 - 7 % 01/02/2017 5:44 AM [facility] BASOPHILS 1 0 - 1 % 01/02/2017 5:44 AM [facility] IMMATURE GRANULOCYTES 1 0 [...] Final Re sult [facility] CLIA# [id number] [address] [place] [id number] documented in this encounter Visit Diagnoses Not on filedocumented in this encounter Care Teams Security Police Relationship Specialty Start Date End Date Shravan Jones DO PCP - General Family Practice 12/04/16 documented as of this encounter
--- OUTSIDE RECORDS SUMMARY | 2025-06-17 23:05 | XMS_ITS | Clinical Summary ---
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 Gender Identity Not on file Sexual [...] Required) Completed Medical Devices Implanted Type Area Vacuum Kettle Cook Device Identifier Shelf Expiration Date Model / Serial / Lot Max dailym Flour [id number] - [id number] Implanted:Qty: 2 on 12/17/2016 by Deandre Alan MD at [facility] Biological Left: Lung [employer] 09/19/2019 [id number] / / [id number] Control Implant Funmi Procedures Procedure Name Priority Date/Time Associated Diagnosis Comments HEMOGLOBIN A1C Routine 01/09/2017 2:52 AM CDT from Last 3 Months or Most Recently Relevant to Health Maintenance Results * (ABNORMAL) HEMOGLOBIN A1C (01/09/2017 2:52 AM CDT) HEMOGLOBIN A1C 8.9(H) 4.0 - 6.0 % 01/09/2017 1:31 PM CDT [facility] EST. AVG GLUCOSE, A1C 209 mg/dL 01/09/2017 1:31 PM CDT [facility] Blood 01/09/2017 2:52 AM CDT 01/09/2017 6:53 AM CDT Narrative [facility] - 01/09/2017 1:31 PM CDT Test performed on ZadegoII instrumentation using HPLC methodology us Izabela Diamond MD CHEMISTRY ORDERABLES Final Res ult [facility] CLIA# [id number] [address] [place] [address] from Last 3 Months or Most Recently Relevant to Health [place] [address] [facility] MEDICAID Advance Directives For more information, please contact: [phone] * Full Code (Latest Code Status on File) Date Activated Date Inactivated Comments 12/17/2016 1:05 PM 12/27/2016 11:32 PM Care Teams Compress Trucker Relationship Specialty Start Date End Date Shravan Jones DO PCP - General Family Practice 12/04/16
--- OUTSIDE RECORDS SUMMARY | 2025-06-17 23:05 | XMS_ITS | Encounter Summary ---
Author Organization [facility] Address [address] [place] [address] Care Team Providers Care Senior Safety Management Consultant Name Role Phone Shravan Jones DO Primary Care Provider [phone]- [phone] Encounter Details Date Type Department Care Team (Late st Contact Info) Description 01/07/2017 Lab Requisition [facility] Services [address] [place] [address] David Ortega MD [address] [place] [address] Social History Tobacco Use Types Packs/Day Years Used Date Smoking Tobacco: Every Day Cigarettes Comments:pt lethargic Comments Unknown Sex and Gender Information Value Date Recorded Sex Assigned at Not on file 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
--- OUTSIDE RECORDS SUMMARY | 2025-06-17 23:05 | XMS_ITS | Encounter Summary ---
Author Organization [facility] Address [address] [place] [address] Care Team Providers Care Loss Claim Clerk Name Role Phone Shravan Jones DO Primary Care Provider [phone]- [phone] Encounter Details Date Type Department Care Team (Late st Contact Info) Description 01/09/2017 Lab Requisition [facility] Laboratory Services [facility] [address] [place] [address] Izabela Diamond MD NO ADDRESS ON FILE Social History Tobacco Use Types Packs/Day Years Used Date Smoking Tobacco: Every Day Cigarettes Comments:pt lethargic Comments Unknown Sex and Gender Information Value Date Recorded Sex Assigned at Not on file 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 This will have limited patient impact. us Izabela Diamond MD CHEMISTRY ORDERABLES Final Res ult [facility] CLIA# [id number] [address] [place] [address] * (ABNORMAL) COMPREHENSIVE METABOLIC PANEL (01/09/2017 3:15 AM CDT) SODIUM 139 136 - 145 mmol/L 01/09/2017 5:53 AM CDT [facility] POTASSIUM 4.1 3.5 - 5.1 mmol/L 01/09/2017 5:53 AM T [facility] CHLORIDE 101 98 - 107 mmol/L 01/09/2017 5:53 AM T [facility] CO2 28 21 - 32 mmol/L 01/09/2017 5:53 AM T [facility] CALCIUM 8.8 8.4 - 10.1 mg/dL 01/09/2017 5:53 AM T [facility] BUN 18(H) 7 - 17 mg/dL 01/09/2017 5:53 AM T [facility] CREATININE 0.73 0.55 - 1.02 mg/dL 01/09/2017 5:53 AM T [facility] GLUCOSE 182(H) 74 - 106 mg/dL 01/09/2017 5:53 AM T [facility] TOTAL PROTEIN 8.4(H) 6.4 - 8.2 g/dL 01/09/2017 5:53 AM T [facility] ALBUMIN 2.5(L) 3.4 - 5.0 g/dL 01/09/2017 5:53 AM CDT [facility] BILIRUBIN TOTAL 0.2 0.2 - 1.0 mg/dL 01/09/2017 5:53 AM CDT [facility] ALKALINE PHOSPHATASE 99 25 - 100 U/L 01/09/2017 5:53 AM CDT [facility] AST 30 15 - 37 U/L 01/09/2017 5:53 AM CDT [facility] ALT 27 13 - 61 U/L 01/09/2017 5:53 AM CDT [facility] GFR >60 >=60 mL/min/1.7 3 sq meter 01/09/2017 5:53 AM T [facility] Comment: eGFR [...] 3 sq meter 01/09/2017 5:53 AM CDT [facility] ANION GAP 10 4 - 30 mmol/L 01/09/2017 5:53 AM T [facility] Blood 01/09/2017 3:15 AM CDT 01/09/2017 5:12 AM CDT us Izabela Diamond MD CHEMISTRY ORDERABLES Final Res ult [facility] CLIA# [id number] [address] [place] [address] * (ABNORMAL) CBC WITH DIFFERENTIAL (01/09/2017 3:15 AM CDT) WBC 8.7 4.5 - 11.0 K/uL 01/09/2017 5:20 AM [facility] RBC 4.63 4.20 - 5.40 M/uL 01/09/2017 5:20 AM [facility] HEMOGLOBIN 11.3(L) 12.0 - 16.0 g/dL 01/09/2017 5:20 AM [facility] HEMATOCRIT 36.8 36.0 - 46.0 % 01/09/2017 5:20 AM [facility] MCV 79.5(L) 84.0 - 103.0 fL 01/09/2017 5:20 AM [facility] MCH 24.4(L) 27.0 - 34.0 pg 01/09/2017 5:20 AM [facility] MCHC 30.7 30.0 - 35.0 g/dL 01/09/2017 5:20 AM [facility] RDW 17.3(H) 11.0 - 14.5 % 01/09/2017 5:20 AM [facility] RDW-STDEV 50.4 37.0 - 54.0 fL 01/09/2017 5:20 AM [facility] PLATELETS 463(H) 140 - 440 K/uL 01/09/2017 5:20 AM [facility] MPV 9.9 8.9 - 12.8 fL 01/09/2017 5:20 AM [facility] NEUTROPHILS 46 42 - 75 % 01/09/2017 5:20 AM [facility] LYMPHOCYTES 33 24 - 44 % 01/09/2017 5:20 AM [facility] MONOCYTES 8 2 - 10 % 01/09/2017 5:20 AM [facility] EOSINOPHILS 11(H) 0 - 7 % 01/09/2017 5:20 AM [facility] BASOPHILS 1 0 - 1 % 01/09/2017 5:20 AM [facility] IMMATURE GRANULOCYTES 0 0 - 2 % 01/09/2017 5:20 AM [facility] NEUTROPHIL ABSOLUTE 4.05 2.00 - 8.00 K/uL 01/09/2017 5:20 AM CDT [facility] LYMPHOCYTE ABSOLUTE 2.86 1.20 - 4.00 K/uL 01/09/2017 5:20 AM CDT [facility] MONOCYTE ABSOLUTE 0.73(H) 0.10 - 0.60 K/uL 01/09/2017 5:20 AM CDT [facility] EOSINOPHIL ABSOLUTE 0.95(H) 0.00 - 0.70 K/uL 01/09/2017 5:20 AM CDT [facility] BASOPHILS ABSOLUTE 0.11 0.00 - 0.20 K/uL 01/09/2017 5:20 AM CDT [facility] IMMATURE GRANULOCYTES ABSOLUTE 0.03 0.00 - 0.10 K/uL 01/09/2017 5:20 AM CDT [facility] Blood 01/09/2017 3:15 AM CDT 01/09/2017 5:12 AM CDT us Izabela Diamond MD HEMATOLOGY ORDERABLES Final Re sult [facility] CLIA# [id number] [address] [place] [address] * (ABNORMAL) HEMOGLOBIN A1C (01/09/2017 2:52 AM CDT) HEMOGLOBIN A1C 8.9(H) 4.0 - 6.0 % 01/09/2017 1:31 PM CDT [facility] EST. AVG GLUCOSE, A1C 209 mg/dL 01/09/2017 1:31 PM CDT [facility] Blood 01/09/2017 2:52 AM CDT 01/09/2017 6:53 AM CDT Narrative [facility] - 01/09/2017 1:31 PM CDT Test performed on [employer]Spot[employer] instrumentation using HPLC methodology us Izabela Diamond MD CHEMISTRY ORDERABLES Final Res ult [facility] CLIA# [id number] [address] [place] [address] documented in this encounter Visit Diagnoses Not on filedocumented in this encounter Care Teams Loss Claim Clerk Relationship Specialty Start Date End Date Shravan Jones DO PCP - General Family Practice 12/04/16 documented as of this encounter
--- OUTSIDE RECORDS SUMMARY | 2025-06-17 23:05 | XMS_ITS | Encounter Summary ---
Author Organization [facility] Address [address] [place] [address] Care Team Providers Care Nuclear Plant Construction Worker Name Role Phone Shravan Jones DO Primary Care Provider [phone]- [phone] Reason for Visit * Reason Onset Date Comments Appointment Notification 11/05/2023 Encounter Details Date Type Department Care Team (Late st Contact Info) Description 11/05/2023 Telephone [facility] [address] [place] [address] Janell Beauchamp MD [address] [place] [address] Appointment Notification Social History Tobacco [...] on file Legal Sex Female 3:34 PM DYE MAKER Gender Identity Not on file Sexual Orientation Not on file documented as of this encounter Miscellaneous Notes * Telephone Encounter - Patrica Barney - 11/05/2023 12:07 PM CDT Janell (Provider) MESSAGE Pt needs to cancel appt on 11/07 and would like to resched. For 11/25 as she has other appts in town that day. Please call pt to reschedule. [facility] Tube Inspector: Patrica Barney documented in this encounter Plan of Treatment Upcoming Encounters Date Type Department Care Team (Late st Contact Info) Description 08/18/2025 11:00 AM DYE MAKER Office [facility] [address] [facility] [address] [place] [address] Kellee Garcia, HAYDEE [address] [facility] [address] [place] [address] documented as of this encounter Visit Diagnoses Not on filedocumented in this encounter Additional Health Concerns Infection Onset Date Last Indicated Resolved Time R/O C. diff 07/06/2024 07/06/2024 07/06/2024 8:35 AM DYE MAKER documented as of this encounter Care Teams Nuclear Plant Construction Worker Relationship Specialty Start Date End Date Shravan Jones DO PCP - General Family Practice 12/04/16 documented as of this encounter
--- OUTSIDE RECORDS SUMMARY | 2025-06-17 23:05 | XMS_ITS | Encounter Summary ---
Author Organization [facility] Address [address] [place] [address] Phone Care Team Providers Care Cathode Ray Tube Salvage Processor Name Role Phone Alexis Garcia MD Primary Care Provider [phone] Encounter Details Date Type Department Care Team (Late st Contact Info) Description 06/10/2025 Orders Only [facility] [address] [place] [address] Chey Navas MD [address] [place] [address] Social History Tobacco Use Types [...] (06/10/2025) Hemoglobin 10.6(L) 11.7 - 14.0 g/dL [facility] 06/10/2025 06/09/2025 11: 21 AM MANAGER OF TRAINING Narrative Resulting Agency Comment Performing Organization Information: Site ID: [place] Name: [facility] Address: [address] [address] Director: Jennifer De Jesus MD us Chey Navas MD LAB BLOOD ORDERABLES Final Re sult [facility] [address] [place] [address] documented in this encounter Visit Diagnoses Not on filedocumented in this encounter Care Teams Cathode Ray Tube Salvage Processor Relationship Specialty Start Date End Date Alexis Garcia MD [address] [place] [address] PCP - General Family Medicine 04/16/22 documented as of this encounter
--- OUTSIDE RECORDS SUMMARY | 2025-06-17 23:05 | XMS_ITS | Encounter Summary ---
Author Organization [facility] Address [address] [place] [address] Care Team Providers Care Filer And Sander Name Role Phone Shravan Jones DO Primary Care Provider [phone] Encounter Details Date Type Department Care Team (Late st Contact Info) Description 01/07/2017 Lab Requisition [facility] Laboratory Services [address] [place] [address] Izabela Diamond MD NO ADDRESS ON FILE Social History Tobacco Use Types Packs/Day Years Used Date Smoking Tobacco: Every Day Cigarettes Comments:pt lethargic Comments Unknown Sex and Gender Information Value Date Recorded Sex Assigned at Not on file 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 Gender Identity Not on file Sexual [...] - 40 mg/dL 01/07/2017 5:27 AM CDT [facility] Blood 01/07/2017 2:23 AM CDT 01/07/2017 5:01 AM CDT Izabela Diamond MD CHEMISTRY ORDERABLES Final Res ult Performing Organization Address City/[facility]/ZIP Co de Phone Number [facility] CLIA# [id number] [address] [place] [address] * (ABNORMAL) C-REACTIVE PROTEIN (01/07/2017 2:23 AM CDT) CRP 16.6(H) 0.0 - 2.9 mg/L 01/07/2017 5:27 AM CDT [facility] Blood 01/07/2017 2:23 AM CDT 01/07/2017 5:01 AM CDT Izabela Diamond MD CHEMISTRY ORDERABLES Final Res ult Performing Organization Address [facility] Co de Phone Number [facility] CLIA# [id number] [address] [place] [address] * (ABNORMAL) BASIC METABOLIC PANEL (01/07/2017 2:23 AM CDT) SODIUM 139 136 - 145 mmol/L 01/07/2017 5:27 AM CDT [facility] POTASSIUM 4.1 3.5 - 5.1 mmol/L 01/07/2017 5:27 AM CDT [facility] CHLORIDE 104 98 - 107 mmol/L 01/07/2017 5:27 AM CDT [facility] [facility] CO2 26 21 - 32 mmol/L 01/07/2017 5:27 AM CDT [facility] CALCIUM 9.1 8.4 - 10.1 mg/dL 01/07/2017 5:27 AM CDT [facility] BUN 14 7 - 17 mg/dL 01/07/2017 5:27 AM CDT [facility] CREATININE 0.82 0.55 - 1.02 mg/dL 01/07/2017 5:27 AM T [facility] GLUCOSE 274(H) 74 - 106 mg/dL 01/07/2017 5:27 AM T [facility] GFR >60 >=60 mL/min/1.7 3 sq meter 01/07/2017 5:27 AM T [facility] Comment: eGFR has not [...] 3 sq meter 01/07/2017 5:27 AM T [facility] ANION GAP 9 4 - 30 mmol/L 01/07/2017 5:27 AM [facility] Blood 01/07/2017 2:23 AM CDT 01/07/2017 5:01 AM CDT us Izabela Diamond MD CHEMISTRY ORDERABLES Final Res ult [facility] CLIA# [id number] [address] [place] [address] * (ABNORMAL) CBC WITH DIFFERENTIAL (01/07/2017 2:23 AM CDT) WBC 9.3 4.5 - 11.0 K/uL 01/07/2017 5:27 AM CDT [facility] RBC 4.19(L) 4.20 - 5.40 M/uL 01/07/2017 5:27 AM CDT [facility] HEMOGLOBIN 10.3(L) 12.0 - 16.0 g/dL 01/07/2017 5:27 AM [facility] HEMATOCRIT 33.2(L) 36.0 - 46.0 % 01/07/2017 5:27 AM [facility] MCV 79.2(L) 84.0 - 103.0 fL 01/07/2017 5:27 AM [facility] MCH 24.6(L) 27.0 - 34.0 pg 01/07/2017 5:27 AM [facility] MCHC 31.0 30.0 - 35.0 g/dL 01/07/2017 5:27 AM [facility] RDW 17.2(H) 11.0 - 14.5 % 01/07/2017 5:27 AM [facility] RDW-STDEV 49.4 37.0 - 54.0 fL 01/07/2017 5:27 AM [facility] PLATELETS 545(H) 140 - 440 K/uL 01/07/2017 5:27 AM [facility] MPV 10.2 8.9 - 12.8 fL 01/07/2017 5:27 AM [facility] NEUTROPHILS 53 42 - 75 % 01/07/2017 5:27 AM [facility] LYMPHOCYTES 26 24 - 44 % 01/07/2017 5:27 AM [facility] MONOCYTES 9 2 - 10 % 01/07/2017 5:27 AM [facility] EOSINOPHILS 11(H) 0 - 7 % 01/07/2017 5:27 AM [facility] BASOPHILS 1 0 - 1 % 01/07/2017 5:27 AM [facility] IMMATURE GRANULOCYTES 0 0 - 2 % 01/07/2017 5:27 AM [facility] NEUTROPHIL ABSOLUTE 4.88 2.00 - 8.00 K/uL 01/07/2017 5:27 AM [facility] LYMPHOCYTE ABSOLUTE 2.45 1.20 - 4.00 K/uL 01/07/2017 5:27 AM [facility] MONOCYTE ABSOLUTE 0.79(H) 0.10 - 0.60 K/uL 01/07/2017 5:27 AM CDT [facility] EOSINOPHIL ABSOLUTE 1.01(H) 0.00 - 0.70 K/uL 01/07/2017 5:27 AM CDT [facility] BASOPHILS ABSOLUTE 0.11 0.00 - 0.20 K/uL 01/07/2017 5:27 AM CDT [facility] IMMATURE GRANULOCYTES ABSOLUTE 0.04 0.00 - 0.10 K/uL 01/07/2017 5:27 AM CDT [facility] Blood 01/07/2017 2:23 AM CDT 01/07/2017 5:01 AM CDT us Izabela Diamond MD HEMATOLOGY ORDERABLES Final Re sult [facility] CLIA# [id number] [address] [place] [address] documented in this encounter Visit Diagnoses Not on filedocumented in this encounter Care Teams Filer And Sander Relationship Specialty Start Date End Date Shravan Jones DO PCP - General Family Practice 12/04/16 documented as of this encounter
--- OUTSIDE RECORDS SUMMARY | 2025-06-17 23:05 | XMS_ITS | Encounter Summary ---
Author Organization [facility] Address [address] [place] [address] Care Team Providers Care Tool Grinder Operator Name Role Phone Shravan Jones DO Primary Care Provider [phone] Encounter Details Date Type Department Care Team (Late st Contact Info) Description 12/12/2016 Nurse Only [facility] 4D Surgery Heart Lung [address] 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
--- OUTSIDE RECORDS SUMMARY | 2025-06-17 23:05 | XMS_ITS | Encounter Summary ---
Author Organization [facility] Address [address] [place] [address] Care Team Providers Care Optometric Technologist Name Role Phone Shravan Jones DO Primary Care Provider [phone] Encounter Details Date Type Department Care Team (Late st Contact Info) Description 12/31/2016 Lab Requisition [facility] [address] [place] [address] David Ortega MD [address] [place] [address] Social History Tobacco Use Types Packs/Day Years Used Date Smoking Tobacco: Every Day Cigarettes Comments:pt lethargic Comments Unknown Sex and Gender Information Value Date Recorded Sex Assigned at Not on file Legal Sex Female 4:38 AM [employer] Gender Identity Not on file Sexual Orientation [...] - 2.6 mg/dL 12/31/2016 5:52 AM T [facility] Blood 12/31/2016 2:26 AM CDT 12/31/2016 5:17 AM CDT [facility] - 12/31/2016 5:52 AM CDT Due to Child Protective Services Social Worker update, MG+ reference range has changed from 1.8 - 2.4 mg/dL to the new reference range of 1.6 - 2.6 mg/dL. This will have limited patient impact. us David Ortega MD CHEMISTRY ORDERABLES Final Res ult [facility] CLIA# [id number] [address] [place] [id number] * (ABNORMAL) COMPREHENSIVE METABOLIC PANEL (12/31/2016 2:26 AM CDT) SODIUM 138 136 - 145 mmol/L 12/31/2016 5:52 AM CDT [facility] POTASSIUM 4.7 3.5 - 5.1 mmol/L 12/31/2016 5:52 AM [facility] CHLORIDE 102 98 - 107 mmol/L 12/31/2016 5:52 AM T [facility] CO2 27 21 - 32 mmol/L 12/31/2016 5:52 AM T [facility] CALCIUM 9.1 8.4 - 10.1 mg/dL 12/31/2016 5:52 AM T [facility] BUN 17 7 - 17 mg/dL 12/31/2016 5:52 AM T [facility] CREATININE 0.87 0.55 - 1.02 mg/dL 12/31/2016 5:52 AM T [facility] GLUCOSE 214(H) 74 - 106 mg/dL 12/31/2016 5:52 AM T [facility] TOTAL PROTEIN 8.2 6.4 - 8.2 g/dL 12/31/2016 5:52 AM T [facility] ALBUMIN 1.9(L) 3.4 - 5.0 g/dL 12/31/2016 5:52 AM CDT [facility] BILIRUBIN TOTAL 0.2 0.2 - 1.0 mg/dL 12/31/2016 5:52 AM CDT [facility] ALKALINE PHOSPHATASE 95 25 - 100 U/L 12/31/2016 5:52 AM CDT [facility] AST 9(L) 15 - 37 U/L 12/31/2016 5:52 AM CDT [facility] ALT 14 13 - 61 U/L 12/31/2016 5:52 AM CDT [facility] GFR >60 >=60 mL/min/1.7 3 sq meter 12/31/2016 5:52 AM T [facility] Comment: eGFR has [...] 3 sq meter 12/31/2016 5:52 AM CDT [facility] ANION GAP 9 4 - 30 mmol/L 12/31/2016 5:52 AM T [facility] Blood 12/31/2016 2:26 AM CDT 12/31/2016 5:17 AM CDT us David Ortega MD CHEMISTRY ORDERABLES Final Res ult [facility] CLIA# [id number] [place] [address] * (ABNORMAL) CBC WITH DIFFERENTIAL (12/31/2016 2:26 AM CDT) WBC 13.7(H) 4.5 - 11.0 K/uL 12/31/2016 6:32 AM [facility] RBC 3.66(L) 4.20 - 5.40 M/uL 12/31/2016 6:32 AM [facility] HEMOGLOBIN 9.3(L) 12.0 - 16.0 g/dL 12/31/2016 6:32 AM [facility] [employer] [facility] HEMATOCRIT 29.6(L) 36.0 - 46.0 % 12/31/2016 6:32 AM [facility] [employer] [facility] MCV 80.9(L) 84.0 - 103.0 fL 12/31/2016 6:32 AM [facility] [employer] [facility] MCH 25.4(L) 27.0 - 34.0 pg 12/31/2016 6:32 AM [facility] MCHC 31.4 30.0 - 35.0 g/dL 12/31/2016 6:32 AM [facility] [employer] [facility] RDW 17.4(H) 11.0 - 14.5 % 12/31/2016 6:32 AM [facility] [employer] [facility] RDW-STDEV 52.1 37.0 - 54.0 fL 12/31/2016 6:32 AM [facility] [employer] [facility] PLATELETS 767(H) 140 - 440 K/uL 12/31/2016 6:32 AM [facility] [employer] [facility] MPV 9.0 8.9 - 12.8 fL 12/31/2016 6:32 AM [facility] [employer] [facility] NEUTROPHILS 68 42 - 75 % 12/31/2016 6:32 AM [facility] [employer] [facility] LYMPHOCYTES 17(L) 24 - 44 % 12/31/2016 6:32 AM [facility] [employer] [facility] MONOCYTES 8 2 - 10 % 12/31/2016 6:32 AM [facility] [employer] [facility] EOSINOPHILS 6 0 - 7 % 12/31/2016 6:32 AM [facility] [employer] [facility] BASOPHILS 0 0 - 1 % 12/31/2016 6:32 AM [facility] [employer] [facility] IMMATURE GRANULOCYTES 1 0 - 2 % 12/31/2016 6:32 AM CDT [facility] NEUTROPHIL ABSOLUTE 9.26(H) 2.00 - 8.00 K/uL 12/31/2016 6:32 AM CDT [facility] LYMPHOCYTE ABSOLUTE 2.28 1.20 - 4.00 K/uL 12/31/2016 6:32 AM CDT [facility] MONOCYTE ABSOLUTE 1.07(H) 0.10 - 0.60 K/uL 12/31/2016 6:32 AM CDT [facility] EOSINOPHIL ABSOLUTE 0.82(H) 0.00 - 0.70 K/uL 12/31/2016 6:32 AM CDT [facility] BASOPHILS ABSOLUTE 0.06 0.00 - 0.20 K/uL 12/31/2016 6:32 AM CDT [facility] IMMATURE GRANULOCYTES ABSOLUTE 0.17(H) 0.00 - 0.10 K/uL 12/31/2016 6:32 AM CDT [facility] Blood 12/31/2016 2:26 AM CDT 12/31/2016 5:17 AM CDT Narrative [facility] - 12/31/2016 6:32 AM CDT Smear reviewed us David Ortega MD HEMATOLOGY ORDERABLES Final Re sult [facility] CLIA# [id number] [address] [place] [id number] documented in this encounter Visit Diagnoses Not on filedocumented in this encounter Care Teams Optometric Technologist Relationship Specialty Start Date End Date Shravan Jones DO PCP - General Family Practice 12/04/16 documented as of this encounter
--- OUTSIDE RECORDS SUMMARY | 2025-06-17 23:05 | XMS_ITS | Continuity of Care Document ---
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 chest completed [facility], LJacoboLJacoboCJacobo 08/24/2024 12:28:02 04/28/20 24 plain X-ray of chest completed [facility] 04/30/2024 11:08:42 03/31/20 24 plain X-ray of chest completed [facility] 04/01/2024 14:05:05 03/27/20 24 imaging guided percutaneous transluminal angioplasty of coronary artery with contrast completed [facility] L.L[facility] 10/05/2024 10:23:19 02/28/20 24 radiographic procedure on chest and/or abdomen completed [facility] 03/04/2024 15:02:31 02/28/[address] of abdomen completed [facility], L.LJacoboCJacobo 03/04/2024 15:03:26 01/19/20 24 diagnostic radiography of abdomen completed [facility] 01/21/2024 17:26:25 01/06/20 24 plain X-ray of chest completed [facility] 01/07/2024 15:42:42 12/27/19 24 plain X-ray of chest completed [facility] 12/29/2023 23:23:06 12/27/[address] of chest, abdomen and pelvis completed [facility] 12/29/2023 23:32:58 12/24/19 24 plain X-ray of chest completed [facility] 12/29/2023 23:56:29 12/20/[address] of chest completed [facility] 12/21/2023 12:33:52 12/20/19 24 plain X-ray of chest completed [facility] 12/21/2023 12:34:44 12/09/19 24 plain X-ray of chest completed [facility] 12/12/2023 10:16:37 12/05/19 24 plain X-ray of chest completed [facility] 12/06/2023 13:24:46 11/28/19 24 cardiac catheterization completed [facility] 12/06/2023 13:11:07 11/28/19 24 imaging guided percutaneous transluminal angioplasty of coronary artery with contrast completed [facility] 10/05/2024 10:22:55 11/27/19 24 plain X-ray of chest completed [facility] 11/28/2023 10:19:35 10/24/19 24 imaging guided percutaneous transluminal angioplasty of coronary artery with contrast completed [facility] 10/05/2024 10:22:32 10/16/19 24 imaging guided percutaneous transluminal angioplasty of coronary artery with contrast completed [facility] 10/05/2024 10:22:12 10/07/19 24 plain X-ray of chest completed JEREMIAH RISHABH [facility] 10/08/2023 17:52:40 09/20/19 24 echocardiography completed JEREMIAH RISHABH [facility], LJacoboL.CJacobo 09/26/2023 12:48:56 lobectomy of lung completed XIMENA RISHABH [facility], LJacoboL.CJacobo 10/10/2023 12:32:47 amputation completed XIMENA RISHABH [facility] 08/24/2024 12:24:04 cholecystectomy completed [facility] 09/13/2024 14:49:22 Imaging Results None recorded. Procedure Notes None recorded. Medical Equipment None Reported. Allergies Allergen ID Allergen Name Allergen Category Reaction Reaction Severity Criticality Documentation Date Start Date Code Code System Note Provider Name and Address Organization Details Recorded Time 50711 acetamino phen medicatio n abdominal pain moderate low 01/19/20232021 161 RxNorm GI upset /into leran ce Anh coles [facility] 4 07:57:42 02839 acetamino phen medicatio n Not available Not available Not available 02/21/20242023 161 RxNorm NAJMA HOUSER, SUZANNE [address] [place], [address], [facility] 15:59:31 43051 ranolazin e medicatio n Not available Not available Not available 04/14/2025 84660 RxNorm Hallu cinat ions XIMENA coles [facility] L.Adonay. 5 11:33:58 Medications Name Sig Start [...] wanted her to decrease to 100mg TID [facility], 02/27 and 02/28 Not Available Not Available [...] times per day 10/09 completed VO CH/jl; 23202; Recorded 05/14/20 19 10:02AM by Leydi Jessica [...] Last Updated DateTime 152.4 cm 27.3 kg/m2 20129.9 3 g 97 % 88 /min 20 /min 174/100 mm[Hg] 170/90 mm[Hg] XIMENA KEATING [facility] 15:22:55 Social History Question Answer Notes LastModified by Organizat ion Details LastModified Time Tobacco Smoking Status Former Smoker Quit 07/2023 XIMENA KEATING [facility] 12/24/2023 12:30:16 What Type Of Diet Are You Following? REGULAR Information not available 12/24/2023 Which Illicit Or Recreational Drugs Have You Used? Smokes Meth [email or web address] Information not available 10/10/2023 When Did You Quit Smoking? 1-5yearssin celastcigar ette Information not available 12/24/2023 What Was The Date Of Your Most Recent Tobacco Screening? 12/24/2023 Information not available 12/24/2023 What Is Your Current Pack Years? 20-29packye ars Information not available 12/24/2023 What Is Your Relationship Status? Single [email or web address] Information not available 12/24/2023 At What Age [...] or recreational drugs? Yes Quit Meth 07/2023 [email or web address] Information not available 12/24/2023 Do you or have you ever used any other forms of tobacco or nicotine? No Information not available 12/24/2023 What is your level of alcohol consumption? None [email or web address] Information not available 10/10/2023 Are you currently employed? No disabled Information not available 10/10/2023 Are you able to walk independently without assistance or assistive devices? YESASSIST [email or web address] Information not available 10/10/2023 Are you able to care for yourself independently? No Mother is her caregiver. [email or web address] Information not available 10/10/2023 Do you or have you ever used any nicotine-free cigarettes, vape, or chewing tobacco? No Information not available 12/24/2023 Mental Status None recorded. Family History Relationship Description Onset Age of this Age Resolved Age Notes LastModified by Organization Details LastModified Time Mother Myocardial infarction In her 50's [email or web address] Not available 12/29/2023 23:44:26 Mother Rheumatoid arthritis Not available 12/28 23:44:44 Brother Acute lymphoid leukemia [email or web address] Not available 10/18 18:24:23 Medical History Condition [...] [id number] 8 completed NAJMA SUZANNE HOUSER [address] [place], [address], [facility], Bill[place] 12/24/2023 12:51:09 Past Encounters Encounter ID Performer Location Encounter Start Date Encounter Closed Date Diagnosis/Indication Diagnosis SNOMED-CT Code Diagnosis ICD10 Code Diagnosis IMO Codes Diagnosis Note [id number] NAJMA SUZANNE HOUSER [facility] ([facility]) [address] [place] [address] 06/09/2025 15:06:12 06/09/2025 16:23:26 Essential hypertension 63617302 I10 Blood pressure elevated. She has been bottoming out at dialysis. Type 1 mainor betes mellitus 83248218 E10.22 Planning on getting an insulin pump tomorrow. Spasm 79484145 M62.838 Generalized edema 684700 008 R60.1 65032 Chest wall pain 10461555 6 R07.89 49874 Recurrent. Following with cardiology . Recently started Isosorbide . Cellulitis of right index finger 6056563904 7100 L03.011 84053180 Continue antibiotic s. Health Concerns Section Related Observation LastModified by Organization Detai ls LastModified Time None Recorded Concern Status LastModified by Organization Details LastModified Time None Recorded Payers Encounter Date Sequence Insurance Name Policy Number Policy Varela Covered Member ID Varela Member ID Guarantor Name 06/09/2025 1 [place] Donita Aguilar [id number] Donita Aguilar 06/09/2025 2 [place] Donita Aguilar [id number] Donita Aguilar Notes Date Note Type Note [...] reportsmyocardial infarction,end-stage renal disease, anddiabetes. NAJMA HOUSER, [facility] [address] [place], [address], [facility], [place] 06/09/2025 16:15:09 OBGyn Episode No OBEpisode recorded.
--- OUTSIDE RECORDS SUMMARY | 2025-06-17 23:05 | XMS_ITS | Clinical Summary ---
Author Organization [facility] Address [address] [facility] [address] Attn: [place] [address] Care Team Providers Care Drill Operator Name Role Phone Shravan Jones DO Primary Care Provider [phone] Allergies Active Allergy Reactions Criticality Noted Date [...] subcutaneous injection. 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 [facility] [address] [place] [address] Kellee Garcia HAYDEE Nick [address] [facility] [address] [place] [address] Health Maintenance Due Date Last [...] Required) Completed Medical Devices Implanted Type Area Outsole Handler Device Identifier Shelf Expiration Date Model / Serial / Lot Max dailym Flour [id number] - [id number] Implanted:Qty : 2 on 12/17/2016 by Deandre Alan MD Biological Left: Lung CR BARD[employer] 09/19/2019 [id number] / / [id number] Cath Dialysis Glidepath 14.5fr 24cm Std [id number] - [id number] Implanted:Qty : 1 on 03/18/2024 by Asif Mcclellan MD at [facility] Catheter Right: Chest BARD ANGEL VASC 09/21/2025 [id number] / / [id number] Clip Ligating Horizon Red 898935 - Csc - [id number] Implanted:Qty : 1 on 08/10/2024 by Chato Fitch MD at [facility] Clip Left: Arm [employer] INC [id number] 05/16/2029 [id number] / / [id number] Clip Ligating Horizon Med Ti 444916 - Csc - [id number] Implanted:Qty : 1 on 08/10/2024 by Chato Fitch MD at [facility] Clip Left: Arm TELEFLEX- WECK CLOSURE SYS [id number] 03/31/2029 [id number] / / [id number] Road Gang Supervisor Ligaclip Sml Mcs20 - [id number] Implanted:Qty : 1 on 08/10/2024 by Chato Fitch MD at [facility] Clip Left: Arm J[employer]J- [employer] [id number] 03/23/2029 MCS20 / / [id number] Closure Perclose Prostyle Sut Mediate 21555-33 - [id number] Implanted:Qty : 1 on 09/24/2023 by Janell Beauchamp MD at [facility] Closure Device N/A: Groin LOVE- VASC DEVICE [id number] 06/23/2025 83011-56 / / [id number] Closure Perclose Prostyle Sut Mediate 53186-81 - [id number] Implanted:Qty : 1 on 10/24/2023 by Janell Beauchamp MD at [facility] Closure Device Right: Groin LOVE- VASC DEVICE [id number] 07/24/2025 77890-23 / / [id number] Oil Slc 8.5ml [id number] - [id number] Implanted:Qty : 1 on 06/23/2024 by Janey Carrera MD at [facility] Eye Right: Eye [employer] 12/21/2026 [id number] / GTIN:[id number] / [id number] Graft Vasc Propaten 4-5ekc80tz L631968n - [id number] Implanted:Qty : 1 on 08/10/2024 by Chato Fitch MD at [facility] Graft Left: Arm [employer] [id number] 05/21/2027 [id number] / [id number] / Agent Hemostat Surgicel 2x3in 1952s - [id number] Implanted:Qty : 1 on 08/10/2024 by Chato Fitch MD at [facility] Hemostatic Left: Arm J&J- [employer]ON INC [id number] 12/21/20281952S / / [id number] Hemostatic Surgiflo 8ml W/ Thrombin 2994 - [id number] Implanted:Qty : 1 on 08/10/2024 by Chato Fitch MD at [facility] Hemostatic Left: Arm J&J- [employer] INC [id number] 10/21/2025 2994 / / [id number] Agent Hemostat Surgicel 2x3in 1952s - [id number] Implanted:Qty : 1 on 08/10/2024 by Chato Fitch MD at [facility] Hemostatic Left: Arm J&J- [employer] [id number] 12/21/20281952S / / [id number] Stent Synergy Xd 3.0x48mm Evrlms Elut [id number] 0 - [id number] Implanted:Qty : 1 on 09/24/2023 by Janell Beauchamp MD at [facility] Stent N/A: Coronary [employer] [id number] 03/31/2025 [id number] 300 / / [id number] Stent Synergy Xd 2.39k08rj Evrlms Elut [id number] - [id number] Implanted:Qty : 1 on 10/24/2023 by Janell Beauchamp MD at [facility] Stent Left: Coronary [employer] [id number] 08/19/2024 [id number] 220 / / [id number] Control Implant Funmi Procedures Procedure Name Priority Date/Time Associated Diagnosis Comments LIPID PANEL Routine 09/21/2023 6:47 PM CDT HEMOGLOBIN A1C Routine 09/21/2023 6:46 PM CDT from Last 3 Months or Most Recently Relevant to Health Maintenance Results * (ABNORMAL) LIPID PANEL (09/21/2023 6:47 PM CDT) [facility] CHOLESTEROL 96 <200 mg/dL 09/21/2023 10:[address] [facility] TRIGLYCERIDE 164(H) <150 mg/dL 09/21/2023 10:[address] [facility] HDL 36(L) 40 - 59 mg/dL 09/21/2023 10:[address] [facility] LDL CALCULATED 27 <100 mg/dL 09/21/2023 10:[address] [facility] NON-HDL CHOLESTEROL 60 <130 mg/dL 09/21/2023 10:[address] [facility] Blood Venipuncture / Unknown 09/21/2023 6:47 PM CDT 09/21/2023 7:10 PM CDT [facility] - 09/21/2023 10:29 PM CDT TOTAL [...] Lacy MD CHEMISTRY ORDERABLES Final R esult [facility] CLIA # [id number] [address] [address] [place] [address] * (ABNORMAL) HEMOGLOBIN A1C (09/21/2023 6:46 PM CDT) HEMOGLOBIN A1C 6.8(H) <=5.6 % 09/23/2023 9:[address] [facility] EST. AVG GLUCOSE, A1C 148 mg/dL 09/23/2023 9:[address] [facility] Blood Venipuncture / Unknown 09/21/2023 6:46 PM CDT 09/21/2023 7:[address] [facility] - 09/23/2023 9:24 AM CDT HGB A1C INTERPRETATION NORMAL: <5.7% PRE-DIABETES: 5.7 - 6.4% DIABETES: 6.5% OR GREATER Luiz Lacy MD CHEMISTRY ORDERABLES Final R esult [facility] CLIA # [id number] [facility] [address] from Last 3 Months or Most Recently Relevant to Health Maintenance Insurance [place] PART [place] B Advance Directives For more information, please contact: [phone] * Full Code (Latest Code Status on File) Date Activated Date Inactivated Comments 10/24/2023 2:34 PM 10/25/2023 11:47 AM * Full Code Date Activated Date Inactivated Comments 10/24/2023 9:13 AM 10/24/2023 2:34 PM * Full Code Date Activated Date Inactivated Comments 09/24/2023 3:14 PM 09/25/2023 9:51 PM * Full Code Date Activated Date Inactivated Comments 09/21/2023 5:50 PM 09/24/2023 3:14 PM Care Teams Drill Operator Relationship Specialty Start Date End Date Shravan Jones DO PCP - General Family Practice 12/04/16
--- OUTSIDE RECORDS SUMMARY | 2025-06-17 23:05 | XMS_ITS ---
[facility] Address [address] [place] [address] Phone [phone] Organization [facility] e, NA DOCUMENT DISCLAIMER Multiple document versions may exist, please be sure you review the latest version. The information in the [facility] Continuity of Care Document represents a summary of certain health and medical information. It may not contain the complete medical history for the patient and should be independently verified. The represented time in the document is Eastern Time. 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 E10.59 Active March 02, 2025 Chest pain, unspecified R07.9 Active Feb Essential (primary) hypertension I10 Active March 02, 2025 Atherosclerotic heart diseas e of [place] coronary artery without angina pectoris I25.10 Active February 26, 2025 Other chest pain R07.89 Active December 29 Hyperkalemia E87.5 Active December 29, 2024 Headache, unspecified R51.9 Active October Dorsalgia, unspecified M54.9 Active October 232024 Cervicalgia M54.2 Active November 10, 2024 Chest pain, unspecified R07.9 Active 2023 Hyperlipidemia, unspecified E78.5 Active April 13, 2024 Presence of other cardiac implants and grafts Z95.818 Active April 02, 2024 Enterocolitis due to Clostri dium difficile, not specified as recurrent A04.72 Active March 25, 2024 Fluid overload, unspecified E87.70 Active February 27, 2024 Hypertensive chronic kidney disease with stage 5 chronic kidney disease or end stage renal disease I12.0 Active February 18, 2024 Partial intestinal obstructi on, unspecified as to cause K56.600 Active February 17, 2024 Chest pain, unspecified R07.9 Active January 02, 2024 Mixed hyperlipidemia E78.2 Active December Essential (primary) hypertension I10 Active December 30, 2023 Type 1 diabetes mellitus wit h diabetic polyneuropathy E10.42 Active December 30, 2023 Atherosclerotic heart diseas e of [place] coronary artery with other forms of angina pectoris I25.118 Active December 30, 2023 Acute on chronic systolic (c ongestive) heart failure I50.23 Active December 30, 2023 Non-ST elevation (NSTEMI) myocardial infarction I21.4 Active December 30, 2023 Atherosclerotic heart diseas e of [place] coronary artery without angina pectoris I25.10 Active September 27, 2023 Chest pain, unspecified R07.9 Active Apri l 2023 Unspecified protein-calorie malnutrition E46 Active September 17, 2023 End stage renal disease N18.6 Active Evan h 2023 Type 1 diabetes mellitus wit h diabetic polyneuropathy E10.42 Active September 17, 2023 Neuromuscular dysfunction of bladder, unspecified N31. 9 Active September 17, 2023 Diarrhea, unspecified R19.7 Active September 09, 2023 Secondary hyperparathyroidism of renal origin N25.81 Active September 06, 2023 Iron deficiency anemia, unspecified D50.9 Activ e September 06, 2023 Shortness of breath R06.02 Active August Hypotension of hemodialysis I95.3 Active September 06, 2023 Cramp and spasm R25.2 Active September 05 Chest pain, unspecified R07.9 Active Evan h 2023 Nausea R11.0 Active September 06, 2023 Fever, unspecified R50.9 Active September 06, 2023 Pain, unspecified R52 Active September 06, 2023 Allergy, unspecified, subsequent encounter T78.40XD Active September 06, 2023 Encounter for screening for respiratory tuberculosis Z11.1 Active September 06, 2023 Encounter for immunization Z23 Active [facility] 2023 Encounter for fitting and ad justment of extracorporeal dialysis catheter Z49.01 Active August 222023 Coagulation defect, unspecified D68.9 Active September 06, 2023 Type 1 diabetes mellitus wit h diabetic chronic kidney disease E10.22 Active September 06, 2023 End stage renal disease N18.6 Active Evan h 2023 Essential (primary) hypertension I10 Active September 06, 2023 Dependence on renal dialysis Z99.2 Active August 27, 2023 Nicotine dependence, cigarettes, uncomplicated F17.210 Active August 27, 2023 Personal history of COVID-19 Z86.16 Active August 27, 2023 Heart failure, unspecified I50.9 Active M 2023 Type 1 diabetes mellitus wit h diabetic chronic kidney disease E10.22 Active August 27, 2023 Atherosclerotic heart diseas e of [place] coronary artery without angina pectoris I25.10 Active August 27, 2023 Anemia in chronic kidney disease D63.1 Active August 27, 2023 ALLERGIES AND ADVERSE REACTIONS Substance Reaction Severity Status acetaminophen Nausea/Vomiting Active SOCIAL HISTORY Tobacco Use Status Tobacco Type Unknown 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 consumed tobacco - 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 No Information Available Characteristics of Home environment No Information Available Gender and Sex Information Gender Identity Sexual Orientation Female Decline to answer MEDICATIONS Prescribed Medications for Dialysis Treatments Medication Instructions Dosage Route Start Date End Date Stat us Diphenhydramine During Dialysis, PRN Itching 12.5 mg Intravenous - push March 02, 2025 February 26, 2026 Active Heparin Sodium (Porcine) 1,000 Units/mL Systemic Bolus, Every Treatment, Total treatment minutes 210 2000 units Intravenous - push April 20, 2025 April 19, 2026 Active Iron Sucrose (Venofer) 1X Week 50 mg Intravenous - push June 01, 2025 May 31, 2026 Active Loperamide During Dialysis, PRN-may repeat x1 diarrhea 2.0 mg Oral January 21, 2025 January 20, 2026 Active Mircera During Dialysis, Every 4 weeks 50 mcg Intravenous - push May 25, 2025 May 24, 2026 Active Nitroglycerin (Nitroquick) PRN-may repeat x2 Q 5 minutes Chest Pain Presumed to be Cardiac 0.4 mg Sublingual January 21, 2025 January 20, 2026 Active Ondansetron HCl (Zofran) PRN-may repeat x1 Nausea/Vomitin g 4 mg Intravenous January 21, 2025 January 20, 2026 Active Vitamin D (Calcitriol) Oral 3X Week 1.75 mcg Oral June 01, 2025 May 31, 2026 Active Diphenhydramine During Dialysis, Once 25 mg Intravenous - push June 08, 2025 Discontinued Iron Sucrose (Venofer) During Dialysis, 3X Week 100 mg Intravenous - push May 04, 2025 May 25, 2025 Discontinued Vitamin D (Calcitriol) Oral 3X Week 1.5 mcg Oral May 11, 2025 May 10, 2026 Discontinued Home Medications Medication Instructions Dosage Route Start Date End Date Stat us amlodipine 5 mg Take by mouth every morning 1 ORAL October 06, 2024 Active Anti-Diarrheal (loperamide) 2 mg Take by mouth every four to six hours 2 capsule ORAL October 07, 2023 Active aspirin 81 mg Take by mouth once a day 1 tablet ORAL September 17, 2023 Active atorvastatin 40 mg Take by mouth every night at bedtime 1 tablet ORAL October 23, 2023 Active B12 injection Inject once a month Unknown February 05, 2025 Active bumetanide 1 mg Take by mouth once a day 1 tablet ORAL April 30, 2024 Active clonidine HCl 0.1 mg Take by mouth once a day as needed 1 tablet ORAL June 08, 2025 Active clopidogrel 75 mg Take by mouth once a day 1 tablet ORAL February 10, 2025 Active escitalopram oxalate 20 mg Take by mouth every night at bedtime 1 tablet ORAL February 10, 2025 Active fluticasone furoate-vilantero l 100-25 mcg/dose Inhale as directed once a day as needed 1 puff INHALATION February 10, 2025 Active folic acid 1 mg Take by mouth once a day 1 tablet ORAL February 05, 2025 Active gabapentin 100 mg Take by mouth three times a day 1 capsule ORAL February 11, 2025 Active hydralazine 25 mg Take by mouth twice a day 1/2 tablet ORAL January 09, 2025 Active hydroxyzine HCl 25 mg Take by mouth twice a day as needed 1 tablet ORAL May 11, 2025 Active insulin aspart (niacinamide) 100 unit/mL (3 mL) Inject subcutaneously three times a day 5 unit SUBCUTANEOUS April 13, 2024 Active isosorbide mononitrate 60 mg Take by mouth once a day 1 tablet ORAL June 08, 2025 Active nitroglycerin 0.4 mg Take under tongue as directed 1 tablet SUBLINGUAL April 14, 2025 Active Reglan 5 mg Take by mouth as directed for nausea/vomiting 1 tablet ORAL June 08, 2025 Active Sevelamer Carbonate Tablet 800 mg Take By Mouth Three times a day With Meals 1 Tablet By Mouth July 02, 2024 June 29, 2025 Active colchicine (cardiac) 0.5 mg by mouth once a day 1 tablet ORAL June 08, 2025 Discontinued cyclobenzaprine 10 mg Take by mouth three times a day as needed 1 tablet ORAL December 08, 2024 June 08, 2025 Discontinued isosorbide mononitrate 30 mg Take by mouth once a day 1 tablet ORAL February 26, 2025 June 08, 2025 Discontinued VITAL SIGNS Post-Treatment Vital Signs Vital Sign Value Date / Time Blood Pressure-sitting 102/60 mmHg June 16, 2025 05:49 AM Blood Pressure-standing 108/61 mmHg June 16, 2025 05:49 AM Heart Rate 70 beats per minute June 16, 2025 05:49 AM Respiratory Rate 18 breaths per minute June 16, 2025 05:49 AM Temperature 97.0 deg. F June 16 05:49 AM Weight Vital Sign Value Date / Time Estimated Dry Weight 64 kg May 11:59 PM Pre-Dialysis 66.80 kg June 16 05:49 AM Post-Dialysis 65.00 kg June 16 05:49 AM Other Other Value Date / Time Height 152.4 cm September 06, 2023 1 2:00 AM HEALTH CONCERNS Tuberculosis Testing TST Date Administered TST Date Read TST Result 09/09/2023 09/11/2023 No information a vailable LAB RESULTS Hematology Result Type Result Value Relevant Referen ce Range Interpretation Date Folate, Serum 6.0 ng/mL No Reference Ran ge Provided - August 27, 2024 Platelets 136 1000/mcL 130 - 400 1000/mcL - December 24, 2024 Neutrophils 67.5 % 40.0 - 75.0 % - December 24, 025 WBC (No Diff) 7.96 1000/mcL 4.80 - 10.80 1000/mcL - December 24, 2024 UIBC/TIBC 137 mcg/dL 155 - 355 mcg/dL Low December 24, 2024 TIBC (Calc) 248 mcg/dL 185 - 515 mcg/dL - December Transferrin Sat. (Calc) 45 % 20 - 55 % - December 24, 2024 Platelets 135 1000/mcL 130 - 400 1000/mcL - Janu 2024 TIBC (Calc) 212 mcg/dL 185 - 515 mcg/dL - January 28, 2025 UIBC/TIBC 103 mcg/dL 155 - 355 mcg/dL Low January Transferrin Sat. (Calc) 51 % 20 - 55 % - January 28, 2025 Neutrophils 68.2 % 40.0 - 75.0 % - January 28, 2025 WBC (No Diff) 6.85 1000/mcL 4.80 - 10.80 1000/mcL - January 28, 2025 WBC (No Diff) 6.59 1000/mcL 4.80 - 10.80 1000/mcL - March 02, 2025 Platelets 207 1000/mcL 130 - 400 1000/mcL - Feb Neutrophils 65.6 % 40.0 - 75.0 % - March 02, 2025 Ferritin 698 ng/mL 10 - 291 ng/mL High March 02, 2025 UIBC/TIBC 102 mcg/dL 155 - 355 mcg/dL Low e r 2024 TIBC (Calc) 227 mcg/dL 185 - 515 mcg/dL - er 2024 Transferrin Sat. (Calc) 55 % 20 - 55 % - March 02, 2025 Transferrin Sat. (Calc) 53 % 20 - 55 % - March 25, 2025 Iron 118 mcg/dL 30 - 160 mcg/dL - March TIBC (Calc) 224 mcg/dL 185 - 515 mcg/dL - March 25, 2025 UIBC/TIBC 106 mcg/dL 155 - 355 mcg/dL Low March 25, 2025 RDW 14.1 % 11.5 - 14.5 % - March 25, 2025 MCH 31.6 pg 27.0 - 31.0 pg High March MCHC 32.6 g/dL 30.0 - 36.0 g/dL - March 25, 2025 Hemoglobin x 3 26.1 % 36.0 - 48.0 % Low March 25, 2025 Platelets 133 1000/mcL 130 - 400 1000/mcL - 2024 Lymphocytes 24.1 % 19.0 - 48.0 % - March Monocytes 6.6 % 3.0 - 10.0 % - March 25, 2025 Neutrophils 58.2 % 40.0 - 75.0 % - March MARYBEL 5.3 % 0.0 - 4.0 % High March 25 WBC (No Diff) 4.09 1000/mcL 4.80 - 10.80 1000/mcL Low March 25, 2025 Eosinophil 5.1 % 0.0 - 7.0 % - March 25 Basophils 0.7 % 0.0 - 1.5 % - March 25 Hemoglobin x 3 29.4 % 36.0 - 48.0 % Low April 01, 2025 Retic HGB 30.5 pg 25.4 - 31.8 pg - March Hemoglobin x 3 28.5 % 36.0 - 48.0 % Low April 15, 2025 Hemoglobin x 3 28.8 % 36.0 - 48.0 % Low April 22, 2025 TIBC (Calc) 196 mcg/dL (calc) 250 - 450 mcg/dL (calc) Low April 29, 2025 Iron 33 mcg/dL 40 - 190 mcg/dL Low April 29, 2025 Transferrin Sat. (Calc) 17 % (calc) 16 - 45 % (calc) Normal April 29 Hemoglobin x 3 23.7 No Reference Ran ge Provided Normal April 29, 2025 Eosinophil 3.6 % No Reference Ran ge Provided Normal April 29, 2025 Monocytes 10.9 % No Reference Ran ge Provided Normal April 29, 2025 Basophils 0.6 % No Reference Ran ge Provided Normal April 29, 2025 Lymphocytes 16.3 % No Reference Ran ge Provided Normal April 29, 2025 RDW 12.7 % 11.0 - 15.0 % Normal April MCHC 32.4 g/dL 32.0 - 36.0 g/dL Normal April 29, 2025 Neutrophils 68.6 % No Reference Ran ge Provided Normal April 29, 2025 WBC (No Diff) 8.5 Thousand/uL 3.8 - 10.8 Thousand/uL Normal April 29, 2025 MCH 30.5 pg 27.0 - 33.0 pg Normal April WBC (No Diff) 8.5 Thousand/uL 3.8 - 10.8 Thousand/uL Normal April 29, 2025 Platelets 147 Thousand/uL 140 - 400 Thousand/uL Normal April 29, 2025 Hemoglobin x 3 26.4 No Reference Ran ge Provided Normal May 06, 2025 Hemoglobin x 3 27.6 No Reference Ran ge Provided Normal May 13, 2025 Hemoglobin x 3 33 No Reference Ran ge Provided Normal May 19, 2025 HGB 11.0 g/dL 11.7 - 14.0 g/dL Low May 19, 2025 WBC (No Diff) 6.4 Thousand/uL 3.8 - 10.8 Thousand/uL Normal May 27, 2025 Platelets 154 Thousand/uL 140 - 400 Thousand/uL Normal May 27, 2025 RBC 3.54 Million/uL 3.80 - 5.10 Million/uL Low May 27, 2025 RDW 13.2 % 11.0 - 15.0 % Normal May MCHC 32.9 g/dL 31.6 - 35.4 g/dL Normal May 27, 2025 MCH 29.7 pg 27.0 - 33.0 pg Normal May Monocytes 10.7 % No Reference Ran ge Provided Normal May 27, 2025 Lymphocytes 30.7 % No Reference Ran ge Provided Normal May 27, 2025 Neutrophils 53.5 % No Reference Ran ge Provided Normal May 27, 2025 WBC (No Diff) 6.4 Thousand/uL 3.8 - 10.8 Thousand/uL Normal May 27, 2025 HCT 31.9 % 35.9 - 46.0 % Low May HGB 10.5 g/dL 11.7 - 14.0 g/dL Low May 27, 2025 Basophils 0.5 % No Reference Ran ge Provided Normal May 27, 2025 Eosinophil 4.6 % No Reference Ran ge Provided Normal May 27, 2025 Ferritin 1011 ng/mL 16 - 154 ng/mL High May Hemoglobin x 3 31.5 No Reference Ran ge Provided Normal May 27, 2025 TIBC (Calc) 201 mcg/dL (calc) 250 - 450 mcg/dL (calc) Low May 27, 2025 Transferrin Sat. (Calc) 44 % (calc) 16 - 45 % (calc) Normal May 27 Iron 89 mcg/dL 40 - 190 mcg/dL Normal May 27, 2025 HGB 11.1 g/dL 11.7 - 14.0 g/dL Low June 03, 2025 Hemoglobin x 3 33.3 No Reference Ran ge Provided Normal June 03, 2025 Hemoglobin x 3 31.8 No Reference Ran ge Provided Normal June 10, 2025 HGB 10.6 g/dL 11.7 - 14.0 g/dL Low June 10, 2025 Metabolic/Renal Result Type Result Value Relevant Referen ce Range Interpretation Date Vitamin B12 572 pg/mL 211 - 911 pg/mL - August Hemoglobin A1c 6.5 % 4.8 - 5.9 % High March 02, 2025 Creatinine, Serum 6.27 mg/dL 0.60 - 1.30 mg/dL High March 25, 2025 BUN 24 mg/dL 6 - 19 mg/dL High March 25, 2025 Sodium 135 mEq/L 136 - 145 mEq/L Low March BUN/Creat Ratio 3.8 10.0 - 20.0 Low March 25, 2025 Chloride 96 mEq/L 96 - 108 mEq/L - March Potassium 4.9 mEq/L 3.5 - 5.1 mEq/L - March Bicarbonate 28 mEq/L 22 - 29 mEq/L - March URR, Calc 79 % 65 - 80 % - March 25 BUN, Post 5 mg/dL 6 - 19 mg/dL Low March 25, 2025 Sodium 134 mmol/L 135 - 146 mmol/L Low April 29, 2025 Potassium 6.0 mmol/L 3.5 - 5.3 mmol/L High April 29, 2025 Bicarbonate 27 mmol/L 20 - 29 mmol/L Normal April 29, 2025 Chloride 95 mmol/L 98 - 110 mmol/L Low April 29, 2025 Creatinine, Serum 6.49 mg/dL 0.50 - 0.97 mg/dL High April 29, 2025 BUN 31 mg/dL 7 - 25 mg/dL High April 29, 2025 BUN/Creat Ratio 4.8 No Reference Ran ge Provided Normal April 29, 2025 BUN, Post 6 mg/dL 7 - 25 mg/dL Low May 06, 2025 BUN 16 mg/dL 7 - 25 mg/dL Normal May 06, 2025 URR, Calc 62.5 No Reference Ran ge Provided Normal May 06, 2025 URR, Calc 81.2 No Reference Ran ge Provided Normal May 11, 2025 BUN, Post 6 mg/dL 7 - 25 mg/dL Low May 11, 2025 BUN 32 mg/dL 7 - 25 mg/dL High May 11, 2025 Potassium 5.8 mmol/L 3.5 - 5.3 mmol/L High May 11, 2025 BUN, Post 7 mg/dL 7 - 25 mg/dL Normal May 27, 2025 Hemoglobin A1c 6.4 % No Reference Ran ge Provided High May 27, 2025 BUN/Creat Ratio 5.1 No Reference Ran ge Provided Normal May 27, 2025 URR, Calc 77.4 No Reference Ran ge Provided Normal May 27, 2025 Chloride 98 mmol/L 98 - 110 mmol/L Normal May 27, 2025 Bicarbonate 27 mmol/L 20 - 29 mmol/L Normal May 27, 2025 BUN 31 mg/dL 7 - 25 mg/dL High May 27, 2025 Creatinine, Serum 6.06 mg/dL 0.50 - 0.97 mg/dL High May 27, 2025 Sodium 136 mmol/L 135 - 146 mmol/L Normal May 27, 2025 Potassium 4.3 mmol/L 3.5 - 5.3 mmol/L Normal May 27, 2025 HD Adequacy Result Type Result Value Relevant Referen ce Range Interpretation Date Krt/V 0.00 No Reference Ran ge Provided - December 24, 2024 Krt/V 0.00 No Reference Ran ge Provided - January 28, 2025 Krt/V 0.00 No Reference Ran ge Provided - March 02, 2025 spKt/V ([place]augirdas II) 1.80 No Reference Range Provided - March 25, 2025 wstdKt/V 2.6 No Reference Ran ge Provided - March 25, 2025 Krt/V 0.00 No Reference Ran ge Provided - March 25, 2025 spKt/V Gotch 1.82 No Reference Ran ge Provided - March 25, 2025 eKt/V ([place]) 1.55 No Reference Range Provided - March 25, 2025 wstdKt/V without residual 2.6 No Reference Range Provided - March 25, 2025 wstdKt/V, residual 0.0 No Reference Range Provided - March 25, 2025 spKt/V ([place] II) 1.13 No Reference Range Provided - May 06, 2025 wstdKt/V without residual 2.1 No Reference Range Provided - May 06, 2025 eKt/V ([place]) 0.97 No Reference Range Provided - May 06, 2025 wstdKt/V 2.1 No Reference Ran ge Provided - May 06, 2025 wstdKt/V, residual 0.0 No Reference Range Provided - May 06, 2025 Krt/V 0.00 No Reference Ran ge Provided - May 06, 2025 spKt/V Gotch 1.12 No Reference Ran ge Provided - May 06, 2025 Krt/V 0.00 No Reference Ran ge Provided - May 11, 2025 wstdKt/V without residual 2.6 No Reference Range Provided - May 11, 2025 wstdKt/V 2.6 No Reference Ran ge Provided - May 11, 2025 wstdKt/V, residual 0.0 No Reference Range Provided - May 11, 2025 spKt/V Gotch 1.86 No Reference Ran ge Provided - May 11, 2025 spKt/V ([place] II) 1.89 No Reference Range Provided - May 11, 2025 eKt/V ([place]) 1.63 No Reference Range Provided - May 11, 2025 eKt/V ([place]) 1.42 No Reference Range Provided - May 27, 2025 Krt/V 0.00 No Reference Ran ge Provided - May 27, 2025 spKt/V ([place] II) 1.66 No Reference Range Provided - May 27, 2025 wstdKt/V, residual 0.0 No Reference Range Provided - May 27, 2025 spKt/V Gotch 1.67 No Reference Ran ge Provided - May 27, 2025 wstdKt/V without residual 2.5 No Reference Range Provided - May 27, 2025 wstdKt/V 2.5 No Reference Ran ge Provided - May 27, 2025 Bone/Mineral Result Type Result Value Relevant Referen ce Range Interpretation Date Vitamin D 25 Hydroxy 6.7 ng/mL 30.0 - 100.0 ng/mL Low August 27, 2024 Magnesium 2.0 mg/dL 1.6 - 2.6 mg/dL - August 27, 2024 Magnesium 2.0 mg/dL 1.6 - 2.6 mg/dL - November 26, 2024 PTH-Intact, Plasma 797 pg/mL 16 - 80 pg/mL High Jan PTH-Intact, Plasma 804 pg/mL 16 - 80 pg/mL High Feb Magnesium 2.0 mg/dL 1.6 - 2.6 mg/dL - March 02, 2025 Ca x P Product 44 0 - 54 - March Phosphorus 5.2 mg/dL 2.6 - 4.5 mg/dL High March Corrected Ca x P Product 46 0 - - March 25, 2025 Calcium, Total 8.4 mg/dL 8.4 - 10.2 mg/dL - 2024 PTH-Intact, Plasma 561 pg/mL 16 - 80 pg/mL High Mar Phosphorus 5.4 mg/dL 3.0 - 4.5 mg/dL High April 29, 2025 Calcium, Total 8.0 mg/dL 8.6 - 10.0 mg/dL Low mb2024 PTH-Intact, Plasma 746 pg/mL 16 - 77 pg/mL High Apr PTH-Intact, Plasma 577 pg/mL 16 - 77 pg/mL High May Alkaline Phosphatase 155 U/L 31 - 125 U/L High De cem2024 Calcium, Total 8.2 mg/dL 8.6 - 10.0 mg/dL Low Dece 2024 Magnesium 2.0 mg/dL 1.6 - 2.5 mg/dL Normal May 27, 2025 Phosphorus 5.8 mg/dL 3.0 - 4.5 mg/dL High May 27, 2025 Liver/Nutrition Result Type Result Value Relevant Referen ce Range Interpretation Date Glucose 177 mg/dL 70 - 100 mg/dL High March Total Protein 6.5 g/dL 6.0 - 8.5 g/dL - March 25, 2025 Albumin (BCG) 3.4 g/dL 3.5 - 5.2 g/dL Low March 25, 2025 Globulin (Calc) 3.1 g/dL 2.0 - 4.0 g/dL - 2024 A/G Ratio 1.1 1.0 - 2.0 - March 25 eNPCR 0.52 No Reference Ran ge Provided - March 25, 2025 A/G Ratio 1 No Reference Ran ge Provided Normal April 29, 2025 Glucose 140 mg/dL 65 - 99 mg/dL High April Albumin (BCG) 3.4 g/dL 3.6 - 5.1 g/dL Low Novem2024 Total Protein 6.8 g/dL 6.1 - 8.1 g/dL Normal [facility]2024 Globulin (Calc) 3.4 No Reference Ran ge Provided Normal April 29, 2025 eNPCR 0.34 No Reference Ran ge Provided - May 06, 2025 eNPCR 0.53 No Reference Ran ge Provided - May 11, 2025 Globulin (Calc) 3.2 No Reference Ran ge Provided Normal May 27, 2025 A/G Ratio 1.1 No Reference Ran ge Provided Normal May 27, 2025 eNPCR 0.59 No Reference Ran ge Provided - May 27, 2025 Total Protein 6.6 g/dL 6.1 - 8.1 g/dL Normal Decembe 2024 Albumin (BCG) 3.4 g/dL 3.6 - 5.1 g/dL Low [facility] 2024 Glucose 115 mg/dL 65 - 99 mg/dL High May Immunochemistry Result Type Result Value Relevant Referen ce Range Interpretation Date HCV s/co ratio 0.12 0.00 - 0.79 - August 27, 2024 HCV s/co ratio 0.03 0.00 - 0.79 - March 02, 2025 Trace Elements Result Type Result Value Relevant Reference Range Interpre tation Date Aluminum < 5 mcg/L 0 - 10 mcg/L - August 27 Aluminum 5 mcg/L 0 - 10 mcg/L - February Infectious Diseases Result Type Result Value Relevant Referen ce Range Interpretation Date Hep B Surface Ag (HBsAg) Negative No Reference Range Provided - August 27, 2024 Hep B Surface Ab (anti-HBs) 10 mIU/mL No Reference Range Provided - August 27, 2024 HCV Ab (anti-HCV) Nonreactive No Reference R young Provided - March 02, 2025 DIALYSIS PRESCRIPTION Conventional Hemodialysis Data Element Value Order Date/Time June 10, 2025 Frequency 3X Week Treatment Days TueThuSat Dialyzer FX CorAL 60 Treatment Time (Total Minutes) 210 min Blood Flow Rate (mL/min) 350 mL/min Dialysate Flow Rate Manual 800 Estimated Dry Weight 64 kg Dialysate Concentrate 2.0 K, 2.5 Ca, 1.0 Mg, 100 Dextrose (G2251) Sodium (mEq/L) 138 mEq/L Bicarb Machine Setting (mEq/L) 36 mEq/L Dialysis Access Hemodialysis-AV [place] t-Synthetic - Standard (PTFE), Left Upper Arm, Brachial Artery to Cephalic Vein Access Placed on August 10, 2024 Arterial Needle Size 16g1 Venous Needle Size 16g1 IMMUNIZATIONS Vaccine Date Dose Route Status Flu Vaccine - Flucelvax Trivalent March 18, 2025 0.5 m L Intramuscular Completed Flu Vaccine - Flucelvax Trivalent April 21, 2024 0.5 mL Intramuscular Completed PNEUMOVAX December 11, 2023 0.5 mL Intramuscular Comple rick PREVNAR September 13, 2023 0.5 mL Intramuscular Complet ed TRANSPLANT WAITLIST STATUS No Information on Transplant Waitlist Status ADVANCE DIRECTIVES Directive Description Ordered By Effective Date Resuscitation status Full Code Chey Navas Aug DIALYSIS TREATMENTS Conventional Hemodialysis Date Pre-Treatment Vitals Post-Treatment Kendra ls Duration (hr) BFR (mL/min) Dialysate Dialyzer Dialysis Access Meds Admin Decem 2024 Weight 64.80 kg Weight 64.00 kg 03:33:00 350 2.0 K, 2.5 Ca, 1.0 Mg, 100 Dextrose (G2251) FX CorAL 60 Blood Pressure-sitting 180/105 mmHg Blood Pressure-sit ting 130/74 mmHg Blood Pressure-standing 185/78 mmHg Blood Pressure-st anding 113/74 mmHg Heart Rate 78 beats per minute Heart Rate 68 beats per minute Respiratory Rate 16 breaths per minute Respiratory Rate 18 breaths per minute Temperature 97.5 deg. F Temperature 97.4 deg. F June 14, 2025 Weight 65.10 kg Weight 65.10 kg 01:24:00 360 2.0 K, 2.5 Ca, 1.0 Mg, 100 Dextrose (G2251) FX CorAL 60 Hemodialysis-AV [place]-Synthetic - Standard (PTFE), Left Upper Arm, Brachial Artery to Cephalic Vein Access Placed on August 10, 2024 Heparin Sodium (Porcine) 1,000 Units/mL Systemic; 2000units,Intravenous - push Iron Sucrose (Venofer); 50mg,Intravenous - push Nitroglycerin (Nitroquick); 0.4mg,Sublingual Nitroglycerin (Nitroquick); 0.4mg,Sublingual Ondansetron HCl (Zofran); 4mg,Intravenous Vitamin D (Calcitriol) Oral; 1.75mcg,Oral Blood Pressure-sitting 156/87 mmHg Blood Pressure-sit ting 123/82 mmHg Blood Pressure-standing 117/69 mmHg Heart Rate 88 b eats per minute Heart Rate 76 beats per minute Respiratory Rate 18 b reaths per minute Respiratory Rate 16 breaths per minute Temperature 97.8 deg. F Temperature 97.5 deg. F - - June 16, 2025 Weight 66.80 kg Weight 65.00 kg 03:03:00 400 2.0 K, 2.5 Ca, 1.0 Mg, 100 Dextrose (G2251) FX CorAL 60 Hemodialysis-AV Graft-Synthetic - Standard (PTFE), Left Upper Arm, Brachial Artery to Cephalic Vein Access Placed on August 10, 2024 Diphenhydramine; 12.5mg,Intravenous - push Heparin Sodium (Porcine) 1,000 Units/mL Systemic; 2000units,Intravenous - push Ondansetron HCl (Zofran); 4mg,Intravenous Vitamin D (Calcitriol) Oral; 1.75mcg,Oral Blood Pressure-sitting 136/67 mmHg Blood Pressure-sit ting 102/60 mmHg Heart Rate 86 beats per minute Blood Pressure-standi ng 108/61 mmHg Respiratory Rate 18 breaths per minute Heart Rate 70 beats per minute Temperature 97.9 deg. F Respiratory Rate 18 breaths per minute - - Temperature 97.0 deg. F
--- OUTSIDE RECORDS SUMMARY | 2025-06-17 23:05 | XMS_ITS | Encounter Summary ---
Author Organization [facility] Address [address] [place] [address] Phone Care Team Providers Care Customs Manager Name Role Phone Alexis Garcia MD Primary Care Provider [phone] Encounter Details Date Type Department Care Team (Late st Contact Info) Description 04/16/2022 Orders Only [facility] [address] [place] [address] Chronic kidney disease, Stage IV [...] (severe) documented in this encounter Care Teams Customs Manager Relationship Specialty Start Date End Date Alexis Garcia MD [address] [place] [address] PCP - General Family Medicine 04/16/22 documented as of this encounter
--- OUTSIDE RECORDS SUMMARY | 2025-06-17 23:05 | XMS_ITS | Continuity of Care Document ---
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 01/19/20 24 diagnostic radiography of abdomen completed [facility], LJacoboLJacoboCJacobo 01/21/2024 17:26:25 01/06/20 24 plain X-ray of chest completed [facility] 01/07/2024 15:42:42 12/27/19 24 plain X-ray of chest completed [facility] 12/29/2023 23:23:06 12/27/19 24 CT of chest, abdomen and pelvis completed [facility], L.L.CJacobo 12/29/2023 23:32:58 12/24/19 24 plain X-ray of chest completed [facility], LJacoboL.CJacobo 12/29/2023 23:56:29 12/20/[address] of chest completed [facility], L.L.CJacobo 12/21/2023 12:33:52 12/20/19 24 plain X-ray of chest completed [facility], L.L.CJacobo 12/21/2023 12:34:44 12/09/19 24 plain X-ray of chest completed [facility], L.L.CJacobo 12/12/2023 10:16:37 12/05/19 24 plain X-ray of chest completed [facility] 12/06/2023 13:24:46 11/28/19 24 cardiac catheterization completed [facility] 12/06/2023 13:11:07 11/28/19 24 imaging guided percutaneous transluminal angioplasty of coronary artery with contrast completed [facility], L.L.CJacobo 10/05/2024 10:22:55 11/27/19 24 plain X-ray of chest completed [facility] 11/28/2023 10:19:35 10/24/19 24 imaging guided percutaneous transluminal angioplasty of coronary artery with contrast completed [facility], L.L.CJacobo 10/05/2024 10:22:32 10/16/19 24 imaging guided percutaneous transluminal angioplasty of coronary artery with contrast [facility] 10/05/2024 10:22:12 10/07/19 24 plain X-ray of chest completed XIMENA RISHABH [facility], KaelynCJacobo 10/08/2023 17:52:40 09/20/19 24 echocardiography completed XIMENA RISHABH [facility], DonteLJacoboCJacobo 09/26/2023 12:48:56 lobectomy of lung completed XIMENAMAHI KEATING [facility], [place] 10/10/2023 12:32:47 amputation completed XIMENA KEATING [facility], KaelynCJacobo 08/24/2024 12:24:04 cholecystectomy completed XIMENA RISHABH [facility], KaelynCJacobo 09/13/2024 14:49:22 Imaging Results None recorded. Procedure Notes None recorded. Medical Equipment None Reported. Allergies Allergen ID Allergen Name Allergen Category Reaction Reaction Severity Criticality Documentation Date Start Date Code Code System Note Provider Name and Address Organization Details Recorded Time 53825 acetamino phen medicatio n abdominal pain moderate low 01/19/20232021 161 RxNorm GI upset /into leran ce Anh coles [facility], LJacoboLJacoboCJacobo 4 07:57:42 71307 acetamino phen medicatio n Not available Not available Not available 02/21/20242023 161 RxNorm NAJMA HOUSER, [facility] [address] [place], [address] , [facility], LJacoboLJacoboCJacobo 5 15:59:31 32626 ranolazin e medicatio n Not available Not available Not available 04/14/2025 94930 RxNorm Hallu cinat ions [facility] 5 11:33:58 Medications Name Sig Start [...] wanted her to decrease to 100mg TID [facility], 02/27 and 02/28 Not Available [...] times per day 10/09 completed VO CH/jl; 98217; Recorded 05/14/20 19 10:02AM by Leydi Jessica [...] Last Updated DateTime 152.4 cm 27.7 kg/m2 66657.1 2 g 99 % 88 /min 18 /min 166/108 mm[Hg] 158/98 mm[Hg] XIMENA KEATING [facility] 11:38:18 Social History Question Answer Notes LastModified by Organizat ion Details LastModified Time Tobacco Smoking Status Former Smoker Quit 07/2023 XIMENA KEATING [facility] 12/24/2023 12:30:16 What Type Of Diet Are You Following? REGULAR [email or web address] Information not available 12/24/2023 Which Illicit Or Recreational Drugs Have You Used? Smokes Meth [email or web address] Information not available 10/10/2023 When Did You Quit Smoking? 1-5yearssin celastcigar ette Information not available 12/24/2023 What Was The Date Of Your Most Recent Tobacco Screening? 12/24/2023 Information not available 12/24/2023 What Is Your Current Pack Years? 20-29packye ars Information not available 12/24/2023 What Is Your Relationship Status? Single [email or web address] Information not available 12/24/2023 At What Age [...] or recreational drugs? Yes Quit Meth 07/2023 [email or web address] Information not available 12/24/2023 Do you or have you ever used any other forms of tobacco or nicotine? No Information not available 12/24/2023 What is your level of alcohol consumption? None [email or web address] Information not available 10/10/2023 Are you currently employed? No disabled [email or web address] Information not available 10/10/2023 Are you able to walk independently without assistance or assistive devices? YESASSIST [email or web address] Information not available 10/10/2023 Are you able to care for yourself independently? No Mother is her caregiver. [email or web address] Information not available 10/10/2023 Do you or have you ever used any nicotine-free cigarettes, vape, or chewing tobacco? No Information not available 12/24/2023 Mental Status None recorded. Family History Relationship Description Onset Age of this Age Resolved Age Notes LastModified by Organization Details LastModified Time Mother Myocardial infarction In her 50's [email or web address] Not available 12/29/2023 23:44:26 Mother Rheumatoid arthritis [email or web address] Not available 12/28 23:44:44 Brother Acute lymphoid leukemia [email or web address] Not available 10/18 18:24:23 Medical History Condition Response Anxiety Disorder Y Diabetes Y Coronary Artery Disease Y Heart Problems Y Hospitalizations Y Lung Disease Y Depression Y COPD Y High Cholesterol Y Heart Disease Y Headaches Y Hypertension Y Kidney Disease Y Gynecological HistoryNo gynecological history recorded. Obstetrics History GPAL:G 0 P 0 0 0 0 Immunizations Vaccine Type Date Status Note Provider Nam e and Address Organization Details Recorded Time pneumococcal polysaccharide PPV23 8 completed SUZANNE HEATON [address] [place], [address], [facility] 12/24/2023 12:51:09 Past Encounters Encounter ID Performer Location Encounter Start Date Encounter Closed Date Diagnosis/Indication Diagnosis SNOMED-CT Code Diagnosis ICD10 Code Diagnosis IMO Codes Diagnosis Note [id number] SUZANNE HEATON [facility] ([facility]) [address] [place] [address] 03/31/2025 10:56:17 03/31/2025 12:04:26 Chronic chest pain 7189200113 68970 R07.9 G89.29 395908 Spasm 56574784 M62.838 Pain in bi lateral legs 4266749186 3382395 M79.604 M79.605 Site-speci fic infective disorders of skin 127071128 L08.9 34000 right index finger Chronic pain syndrome 37 7248178 G89.4 80717 Gabapentin . [id number] SUZANNE HEATON [facility] ([facility]) [address] [place] [address] 04/14/2025 11:22:24 04/14/2025 14:24:51 Chronic chest pain 2118386523 05725 R07.9 G89.29 029605 Essential hypertension 94324069 I10 53303 Took her blood pressure medication about an hour ago. Pressure at home has been pretty good. Type 1 mainor betes mellitus 17869113 E10.[address] Ortega. Will schedule pump training with patient on a [facility]. Will have airframe technical officer set up a time where she can use an exam room here. Health Concerns Section Related Observation LastModified by Organization Detai ls LastModified Time None Recorded Concern Status LastModified by Organization Details LastModified Time None Recorded Payers Encounter Date Sequence Insurance Name Policy Number Policy Varela Covered Member ID Varela Member ID Guarantor Name 04/14/2025 1 [place] Donita Aguilar [id number] Donita Aguilar 04/14/2025 2 [place] Donita Aguilar [id number] Donita Aguilar Notes Date Note Type Note [...] patient reportshistory of pulmonary disease. NAJMA HOUSER, [address], [address], [facility], [place] 04/14/2025 14:09:54 OBGyn Episode No OBEpisode recorded.
--- OUTSIDE RECORDS SUMMARY | 2025-06-17 23:05 | XMS_ITS | Encounter Summary ---
Author Organization [facility] Address [address] [place] [address] Care Team Providers Care Membership Counselor Name Role Phone Shravan Jones DO Primary Care Provider [phone] Encounter Details Date Type Department Care Team (Late st Contact Info) Description 01/07/2017 Lab Requisition [facility] [address] [place] [address] David Ortega MD [address] [place] [address] Social History Tobacco Use Types Packs/Day Years Used Date Smoking Tobacco: Every Day Cigarettes Comments:pt lethargic Comments Unknown Sex and Gender Information Value Date Recorded Sex Assigned at Not on file Legal Sex Female 4:38 AM [employer] Gender Identity Not on file Sexual [...] Detected Not Detected 01/07/2017 8:08 PM CDT [facility] Stool STOOL SPECIMEN / Unknown 01/07/2017 1:54 PM CDT 01/07/2017 6:53 PM CDT Narrative [facility] - 01/07/2017 8:08 PM CDT This assay [...] MICROBIOLOGY - GENERAL ORDERAB LES Final Result [facility] [employer] [facility] CLIA# [id number] [address] [place] [address] documented in this encounter Visit Diagnoses Not on filedocumented in this encounter Care Teams Membership Counselor Relationship Specialty Start Date End Date Shravan Jones DO PCP - General Family Practice 12/04/16 documented as of this encounter
--- OUTSIDE RECORDS SUMMARY | 2025-06-17 23:05 | XMS_ITS | Data Portability ---
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 12:26:50 Steatoti c liver disease 571066219 Active 2023 XIMENA coles [facility] 4 12:27:02 Anemia 605200804 Active 2023 ELIZABETH HOUSER, [facility] [address] [place], [address], [facility] 5 11:47:10 Female pelvic inflamma tory disease 037537305 Active 2023 XIMENA coles [facility] 4 12:28:16 Mixed anxiety and depressi ve disorder 838290127 Active 2023 XIMENA coles [facility] 4 12:28:28 Pancreat itis 95506262 Active 2023 XIMENA coles [facility] 4 12:28:40 Diabetic ketoacid osis 966645429 Active 2023 recurren t XIMENA coles [facility] 4 12:28:57 Migraine 12423065 Active 2023 ELIZABETH HOUSER, [facility] [address] [place], [address], [facility] 5 15:59:15 Cardiome enoch 9838519 Active 2023 XIMENA coles [facility] 4 12:30:17 Edema 819109824 Active 2023 [facility] 4 23:45:39 Edema due to fluid overload 420352384 Active 2023 XIMENA coles [facility], [place] 4 23:45:54 End stage renal failure on dialysis 119998777 Active 2023 ELIZABETH HOUSER, [facility] [address] [place], [address], [facility] [place] 5 15:59:15 Esophagi tis 76838466 Active 2024 [facility] 5 18:23:17 Chronic pain 37023549 Active 2024 Davian Ren MD [address] [place], [address], [facility] 5 09:12:38 Generali zed anxiety disorder 18036088 Active 2024 ELIZABETH HOUSER, [facility] [address] [place], [address], [facility] 5 16:12:14 Notes:Some problems listed i n Documents: #[id number], #[id number], #[id number], #[id number] could not be added to this patient's chart. Please review these documents and add these problems to the patient's chart manually as needed. Problem Notes None recorded. Procedures Surgical History Date Name Laterality Status Provider Name and Address Organization Details Recorded Time 06/06/20 25 plain X-ray of chest completed XIMENA KEATING [facility] [place] 06/08/2025 14:47:06 04/28/20 25 plain [facility] of left [facility] region [facility]05[facility] 15:02:31 04/22/20 25 plain X-ray of chest completed XIMENA KEATING [facility] 04/26/2025 19:04:48 04/07/20 25 plain X-ray of chest completed [facility] 04/08/2025 12:01:33 03/28/20 25 plain X-ray of chest completed [facility] 03/31/2025 11:10:09 03/21/20 25 plain X-ray of chest completed [facility] 03/31/2025 11:07:12 03/04/20 25 plain X-ray of chest completed [facility] 03/31/2025 11:09:47 12/27/[address] of chest completed [facility] 12/27/2024 14:20:38 12/26/19 25 plain X-ray of chest completed [facility] 12/27/2024 14:13:55 11/11/19 25 plain X-ray of cervical spine completed [facility] 11/11/2024 12:44:02 10/01/19 25 angiography completed [facility] 10/01/2024 18:38:18 09/27/19 25 plain X-ray of chest completed [facility] 09/27/2024 18:18:09 09/27/19 25 echocardiography completed [facility] 10/01/2024 18:33:00 09/22/19 25 ultrasonography of right breast completed [facility] 09/21/2024 13:39:24 09/22/19 25 mammography completed [facility] 09/21/2024 13:40:36 09/11/[address] of abdomen completed [facility] 09/13/2024 14:56:32 09/10/19 25 angiography of coronary artery completed [facility] 09/13/2024 14:50:21 09/09/19 25 echocardiography completed [facility] 09/13/2024 14:54:55 09/08/19 25 plain X-ray of chest completed [facility] 09/13/2024 14:57:51 08/24/[address] of chest completed [facility] 08/24/2024 12:28:02 04/28/20 24 plain X-ray of chest completed [facility] 04/30/2024 11:08:42 03/31/20 24 plain X-ray of chest completed [facility] 04/01/2024 14:05:05 03/27/20 24 imaging guided percutaneous transluminal angioplasty of coronary artery with contrast completed [facility] 10/05/2024 10:23:19 02/28/20 24 radiographic procedure on chest and/or abdomen completed [facility] 03/04/2024 15:02:31 02/28/[address] of abdomen completed [facility] 03/04/2024 15:03:26 01/19/20 24 diagnostic radiography of abdomen completed [facility] 01/21/2024 17:26:25 01/06/20 24 plain X-ray of chest completed [facility] 01/07/2024 15:42:42 12/27/19 24 plain X-ray of chest completed [facility] 12/29/2023 23:23:06 12/27/[address] of chest, abdomen and pelvis completed [facility] 12/29/2023 23:32:58 12/24/19 24 plain X-ray of chest completed [facility] 12/29/2023 23:56:29 12/20/[address] of chest completed [facility] 12/21/2023 12:33:52 12/20/19 24 plain X-ray of chest completed [facility] 12/21/2023 12:34:44 12/09/19 24 plain X-ray of chest completed [facility] 12/12/2023 10:16:37 12/05/19 24 plain X-ray of chest completed [facility] 12/06/2023 13:24:46 11/28/19 24 cardiac catheterization completed [facility] 12/06/2023 13:11:07 11/28/19 24 imaging guided percutaneous transluminal angioplasty of coronary artery with contrast completed [facility] 10/05/2024 10:22:55 11/27/19 24 plain X-ray of chest completed [facility] 11/28/2023 10:19:35 10/24/19 24 imaging guided percutaneous transluminal angioplasty of coronary artery with contrast completed [facility] 10/05/2024 10:22:32 10/16/19 24 imaging guided percutaneous transluminal angioplasty of coronary artery with contrast completed [facility] 10/05/2024 10:22:12 10/07/19 24 plain X-ray of chest completed XIMENA RISHABH [facility], [place] 10/08/2023 17:52:40 09/20/19 24 echocardiography completed XIMENAMAHI KEATING [facility], [place] 09/26/2023 12:48:56 lobectomy of lung completed XIMENA KEATING [facility] [place] 10/10/2023 12:32:47 amputation completed XIMENA KEATING [facility], [place] 08/24/2024 12:24:04 cholecystectomy completed XIMENAMAHI KEATING [facility], [place] 09/13/2024 14:49:22 Imaging Results None recorded. Procedure Notes None recorded. Medical Equipment None Reported. Allergies Allergen ID Allergen Name Allergen Category Reaction Reaction Severity Criticality Documentation Date Start Date Code Code System Note Provider Name and Address Organization Details Recorded Time 74348 acetamino phen medicatio n abdominal pain moderate low 01/19/20232021 161 RxNorm GI upset /into leran ce Anh coles [facility] 4 07:57:42 74011 acetamino phen medicatio n Not available Not available Not available 02/21/20242023 161 RxNorm ELIZABETH HOUSER, [address], [address] [place] [address], L[facility] 5 15:59:31 76476 ranolazin e medicatio n Not available Not available Not available 04/14/2025 02486 RxNorm [facility] 5 11:33:58 Medications Name Sig [...] wanted her to decrease to 100mg TID [facility], 02/27 and 02/28 Not Available Not Available [...] times per day 10/09 completed VO CH/jl; 45189; Recorded 05/14/20 19 10:02AM by Leydi Jessica [...] Updated DateTime 5 152.4 cm 26.8 kg/m2 65240.1 5 g 97 % 72 /min 18 /min 98 [degF] 120/70 mm[Hg] BRANDON RIVERA [facility] 5 12:37:22 Date Recorded Body height Body mass index (BMI) Body weight Oxygen saturation Heart rate Respiratory rate Systolic And Diastolic Provider Name and Address Organization Details Last Updated DateTime 5 152.4 cm 27.7 kg/m2 27342.1 2 g 98 % 78 /min 18 /min 158/82 mm[Hg] XIMENA [facility] 5 11:21:53 Date Recorded Body height Body mass index (BMI) Body weight Oxygen saturation Heart rate Respiratory rate Systolic And Diastolic Systolic And Diastolic Provider Name and Address Organization Details Last Updated DateTime 5 152.4 cm 27.7 kg/m2 22614.1 2 g 99 % 88 /min 18 /min 166/108 mm[Hg] 158/98 mm[Hg] XIMENA [facility] 5 11:38:18 Date Recorded Body height Body mass index (BMI) Body weight Oxygen saturation Heart rate Respiratory rate Systolic And Diastolic Provider Name and Address Organization Details Last Updated DateTime 5 152.4 cm 27.7 kg/m2 87016.1 2 g 98 % 80 /min 18 /min 136/80 mm[Hg] XIMENA RISHABH [facility] 5 15:40:44 Date Recorded Body height Body mass index (BMI) Body weight Oxygen saturation Heart rate Respiratory rate Systolic And Diastolic Systolic And Diastolic Provider Name and Address Organization Details Last Updated DateTime 5 152.4 cm 27.3 kg/m2 43353.9 3 g 97 % 88 /min 20 /min 174/100 mm[Hg] 170/90 mm[Hg] XIMENA RISHABH [facility] 5 15:22:55 Social History Question Answer Notes LastModified by Zattikka Details LastModified Time Tobacco Smoking Status Former Smoker Quit 07/2023 XIMENA KEATING [facility] 12/24/2023 12:30:16 What Type Of Diet Are You Following? REGULAR [email or web address] Information not available 12/24/2023 Which Illicit Or Recreational Drugs Have You Used? Smokes Meth [email or web address] Information not available 10/10/2023 When Did You Quit Smoking? 1-5yearssin celastcigar ette Information not available 12/24/2023 What Was The Date Of Your Most Recent Tobacco Screening? 12/24/2023 Information not available 12/24/2023 What Is Your Current Pack Years? 20-29packye ars Information not available 12/24/2023 What Is Your Relationship Status? Single [email or web address] Information not available 12/24/2023 At What Age Did You Start Smoking Tobacco? 19 Information not available 12/24/2023 How Much Tobacco Do You Smoke? No Information not available 12/24/2023 How Many Years Have You Smoked Tobacco? 20 Information not available 12/24/2023 Sex: Unknown Functional Status Question Answer Note LastModified by Zattikka Details LastModified Time Do you use any illicit or recreational drugs? Yes Quit Meth 07/2023 [email or web address] Information not available 12/24/2023 Do you or have you ever used any other forms of tobacco or nicotine? No Information not available 12/24/2023 What is your level of alcohol consumption? None [email or web address] Information not available 10/10/2023 Are you currently employed? No [email or web address] Information not available 10/10/2023 Are you able to walk independently without assistance or assistive devices? YESASSIST [email or web address] Information not available 10/10/2023 Are you able to care for yourself independently? No Mother is her caregiver. [email or web address] Information not available 10/10/2023 Do you or have you ever used any nicotine-free cigarettes, vape, or chewing tobacco? No Information not available 12/24/2023 Mental Status None recorded. Family History Relationship Description Onset Age of this Age Resolved Age Notes LastModified by Organization Details LastModified Time Mother Myocardial infarction In her 50's Not available 12/29/2023 23:44:26 Mother Rheumatoid arthritis [email or web address] Not available 12/28 23:44:44 Brother Acute lymphoid leukemia [email or web address] Not available 10/18 18:24:23 Medical History Condition [...] polysaccharide PPV23 8 completed SUZANNE HEATON [address] [place], [address], [facility], [place] 12/24/2023 12:51:09 Past Encounters Encounter ID Performer Location Encounter Start Date Encounter Closed Date Diagnosis/Indication Diagnosis SNOMED-CT Code Diagnosis ICD10 Code Diagnosis IMO Codes Diagnosis Note [id number] SUZANNE HEATON [facility] ([facility]) [address] [place] [address] 10/10/2023 11:29:12 10/10/2023 13:24:32 Uncontrolled type 1 diabetes mellitus 815553769 E10.[address] Ortega. End stage renal failure on dialysis 786507739 Z99.2 MWF dialysis. Multi vess el coronary artery disease 528566468 I25.10 Following with cardiology in [facility] Essential hypertension 24693141 I10 Coronary arteriosclerosis 72044483 I25.10 Follows with cardiology in [facility]. [id number] Matthew Packer DO [facility] ([facility]) [address] [place] [address] 12/02/2023 12:01:39 12/02/2023 13:56:02 Dental abscess 568763367 K04.7 Will start patient on lower dose amoxicilli n due to her hemodialys is status. Counseled patient that it is imperative that she see and be evaluated by a dentist in the next 2 to 4 weeks. [id number] SUZANNE HEATON [facility] ([facility]) [address] [place] [address] 12/24/2023 11:37:48 12/24/2023 14:35:44 Mixed anxiety and depressive disorder 707284043 F41.8 Essential hypertension 20539954 I10 Starting Nifedipine today. Type 1 mainor betes mellitus 68048401 E10.[address] Ortega. Pain in bi lateral legs 3926146679 3410062 M79.604 M79.605 Patient reports she took some of her mom's in the past and it was helpful. End stage renal failure on dialysis 500595581 Z99.2 MWF dialysis. [id number] SUZANNE HEATON [facility] ([facility]) [address] [place] [address] 01/07/2024 15:11:38 01/07/2024 17:49:26 Edema 852507993 R60.9 Non-pittin g lower extremity. Chest pain 29234824 R07. 9 Recurrent. Following with cardiology . Blood pres sure outside reference range 04327291 Z01.31 Will half dose of nifedipine until she is seen with cardiology . [id number] SUZANNE HEATON [facility] ([facility]) [address] [place] [address] 02/21/2024 11:42:22 02/21/2024 12:51:01 End-stage renal disease 10742555 N18.6 Continue dialysis. Essential hypertension 46363665 I10 Blood pressure good today. Continue current meds. Uncontroll ed type 1 diabetes mellitus 146551468 E10.65 Continue to follow with Dr. Ortega. Mixed anxi ety and depressive disorder 041553078 F41.8 [id number] [facility] [address] [place] [address] 04/01/2024 13:47:35 04/01/2024 15:21:12 Essential hypertension 67286161 I10 Monitor at home. Follow-up with cardiology . Uncontroll ed type 1 diabetes mellitus 795772697 E10.65 Continue to follow with Dr. Ortega. [facility] ion care management 575280263 Z30.9 Has a Nexplanon in her left arm, has not been changed for 12 years per patient Chronic low back pain 27 4263016 M54.50 Would like to see about prescripti on for Tramadol. 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 Congestive heart failure 38753674 I50.9 Follows with Cardiology . Chronic ob structive pulmonary disease 88316649 J44.9 Uses Breo. Secondary hyperaldosteronism 39543019 E26.1 Currently on dialysis. Angina pectoris 33573353 0 I20.9 Follows with cardiology , has nitrostat, recent stent. Amputated toe 769070619 Z89.429 Follows with podiatry. Chronic re current major depressive disorder 0679041 F33.1 Continue Lexapro. [id number] SUZANNE HEATON [facility] ([facility]) [address] [place] [address] 05/01/2024 11:41:02 05/01/2024 13:20:39 Chronic chest pain 4534766552 78163 R07.9 Encouraged her mother to contact cardiology for follow-up. Essential hypertension 07782308 I10 Monitor at home. Restart Coreg. Abnormal vision 9319144 H54.7 [id number] SUZANNE HEATON [facility] ([facility]) [address] [place] [address] 07/01/2024 13:56:52 07/01/2024 15:11:16 Essential hypertension 17483662 I10 Blood pressure this am was 125/80. Type 1 mainor betes mellitus 43547341 E10.[address] Ortega. Mixed anxi ety and depressive disorder 224204550 F41.8 Swelling of lower leg 44 1109297 R22.40 Hypoxemic respiratory failure 0078677749 1527643 J96.91 Uses oxygen at home as needed. 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 Depressive disorder 3548 9007 F33.1 Continue escitalopr am. 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 Congestive heart failure 26974965 I50.9 I50.30 Follows with Cardiology . Chronic ki dney disease stage 5 394760929 N18.5 Z99.2 Currently on dialysis. Amputated toe 185003974 Z89.429 Follows with podiatry. Low back pain 111134519 M54.50 Gabapentin . Hypertensi ve heart and renal disease with (congestive) heart failure 275027744 I13.2 Follows with Cardiology . Chronic ob structive pulmonary disease 61449433 J44.9 Uses Breo. Chronic ki dney disease due to type 2 diabetes mellitus [id number] 08 N18.6 Currently on dialysis. [id number] ELIZABETH HOUSER PREFABRICATOR [facility] ([facility]) [address] [place] [address] 40705-812 5 09/16/2024 09:15:48 09/16/2024 11:21:40 Coronary arteriosclerosis 18653957 I25.10 Recent stent placement. Anemia 789485381 D64.9 Acute supp urative otitis media without spontaneous rupture of ear drum 73304978 H66.001 Pain in bi lateral legs 8169073508 1064754 M79.604 M79.605 She has been taking 100mg three times daily but feels like it needs to be increased. [id number] SUZANNE HEATON [facility] ([facility]) [address] [place] [address] 23806-847 5 10/05/2024 10:02:53 10/05/2024 11:11:59 Coronary atherosclerosis 411944329 I25.10 She has 8 stents now. Mixed anxi ety and depressive disorder 537075827 F41.8 She has been having vivid dreams lately revolving around her brother who recently as well as her daughter who . Hospital i npatient stay within past 30 days [id number] 106 Z76.89 [id number] ELIZABETH HOUSER [facility] ([facility]) [address] [place] [address] 69428-907 5 11/27/2024 09:57:25 11/27/2024 10:57:38 Essential hypertension 99174574 I10 Blood pressure this am was 179/112 at home, in office is 150/80. Afternoon readings have been good. Type 1 mainor betes mellitus 52831000 E10.[address] Ortega. Pain in bi lateral legs 7716577786 1532939 M79.604 M79.605 Anxiety 37105783 F41.8 [id number] Unable to lay still for MRI. Will send in clonazepam to take prior to procedure. [id number] SUZANNE HEATON [facility] ([facility]) [address] [place] [address] 91174-084 5 01/06/2025 11:45:44 01/06/2025 13:58:55 Chronic chest pain [id number] 12351 R07.9 G89.29 327641 Chronic ki dney disease stage 5 400299717 N18.5 Z99.2 Currently on dialysis. Coronary arteriosclerosis 98671094 I25.10 Recent stent placement. Follow-up with cardiology next week. Will discuss chest pain with them as well. [id number] ELIZABETH HOUSER PREFABRICATOR [facility] ([facility]) [address] [place] [address] 20754-423 5 03/03/2025 12:06:42 03/03/2025 14:00:46 Neuropathy due to diabetes mellitus 622876229 E11.40 Decrease gabapentin to 100mg three times daily. Chronic renal failure 90 762198 N18.5 45841362 Dialysis. Hyperkalemia 83737553 E8 7.5 9805 Labs checked yesterday at Dialysis. Atypical chest pain 1025 97833 R07.89 859092 Recurrent. Following with cardiology . Recently started Isosorbide . History of abnormal cervical Papanicolaou smear 422284896 Z87.42 [id number] SUZANNE HEATON [facility] ([facility]) [address] [place] [address] 03/31/2025 10:56:17 03/31/2025 12:04:26 Chronic chest pain 6091065353 03893 R07.9 G89.29 871393 Spasm 80634875 M62.838 Pain in bi lateral legs 7208700426 8304107 M79.604 M79.605 Site-speci fic infective disorders of skin 181537222 L08.9 61022 right index finger Chronic pain syndrome 37 3876617 G89.4 60070 Gabapentin . [id number] SUZANNE HEATON [facility] ([facility]) [address] [place] [address] 38884-915 5 04/14/2025 11:22:24 04/14/2025 14:24:51 Chronic chest pain 1226275647 04274 R07.9 G89.29 726575 Essential hypertension 64343180 I10 90216 Took her blood pressure medication about an hour ago. Pressure at home has been pretty good. Type 1 mainor betes mellitus 29002029 E10.[address] Ortega. Will schedule pump training with patient on a F. Will have property utilization officer set up a time where she can use an exam room here. [id number] SUZANNE HEATON [facility] ([facility]) [address] [place] [address] 62713-868 5 05/05/2025 14:52:32 05/05/2025 16:30:15 Pain of knee region 7251345590 M25.569 Chest pain 82093424 R07. 9 024507 Recurrent. Following with cardiology . Recently started colchicine daily and it has been helpful. Chronic ki dney disease stage 5 958328013 N18.5 Z99.2 Currently on dialysis. Generalize d anxiety disorder 50131253 F41.1 40475 Unable to lay still for MRI. Will send in clonazepam to take prior to procedure. [id number] SUZANNE HEATON [facility] ([facility]) [address] [place] [address] 06/09/2025 15:06:12 06/09/2025 16:23:26 Essential hypertension 17552983 I10 Blood pressure elevated. She has been bottoming out at dialysis. Type 1 mainor betes mellitus 23991098 E10.22 Planning on getting an insulin pump tomorrow. Spasm 37763464 M62.838 Generalized edema 443050 008 R60.1 24553 Chest wall pain 95076619 6 R07.89 95968 Recurrent. Following with cardiology . Recently started Isosorbide . Cellulitis of right index finger 7708475906 7100 L03.011 67076799 Continue antibiotic s. Health Concerns Section Related Observation LastModified by Organization Detai ls LastModified Time None Recorded Concern Status LastModified by Organization Details LastModified Time None Recorded Advance Directives Directive None Recorded Payers Insurance Date Sequence Insurance Name Policy Number Policy Varela Covered Member ID Varela Member ID Guarantor Name 06/06/2025 [place] [facility] (MEDICARE) Donita Aguilar [id number] Donita Aguilar 06/06/2025 [place] [facility] ([facility] Donita Aguilar [id number] Donita Aguilar 06/06/2025 2 [place] Donita Aguilar [id number] Donita Aguilar 06/06/2025 1 [place] [facility] Donita Aguilar [id number] Donita Aguilar 12/07/2024 1 [facility] - [place]) [facility] Donita Aguilar [id number] Donita Aguilar Notes Date Note Type Note [...] wants gabapentin lowered back to 100mg. SARA HEATON[address], [address], [facility] 03/03/2025 13:06:19 5 text/htm l Angina/Chest PainReported by PatientHPIFor quality, patient reportsheaviness. For context, patient reportsat rest. For severity, patient reportsmoderate. For onset/timing, patient reportshas noted for yearsandintermittent. For alleviating factors, patient reportsnitroglycerinandrest. SARA HEATON[address], [address], [facility] 03/31/2025 17:08:26 5 text/htm l DyspneaReported by PatientHPIFor quality, patient reportssqueezing,tightness,p ressure,can't catch breath,breathlessness,inabil ity to take a deep breath, andhurts to breathe. For associated symptoms, patient reportsfever,chills,weakness ,hoarseness, anddecrease in exercise capacity. For severity, patient reportsmoderateandlimits activity. For duration, patient reportsfor 2 weeks. For onset/timing, patient reportswith exertion. For pulmonary disease history, patient reportshistory of pulmonary disease. SUZANNE HEATON [address] [place] [address], [address], [facility] 04/14/2025 14:09:54 5 text/htm l Generalized Anxiety DisorderReported by Patient Joint PainReported by PatientHPIFor quality, patient reportsdull. For location, patient reportsleft knee. For severity, patient reportsno change. For duration, patient reportspresent <1 month. For timing, patient reportsconstant. ELIZABETH HOUSER, [facility] [address] [place], [address], [facility] 05/06/2025 10:11:39 5 text/htm l Hypertension IM/FMReported by PatientHPIFor severity, patient reportsstage 2 (>140/>90 mmhg). For associated symptoms, patient reportschest pain(chronic chest pain). For quality, patient reportshere for check-up. For duration, patient reportshtn present for ___ years. For alleviating factors, patient reportsmedication. For risk factors, patient reportsmyocardial infarction,end-stage renal disease, anddiabetes. ELIZABETH HOUSER, [facility] [address] [place], [address], [facility] 06/09/2025 16:15:09 OBGyn Episode No OBEpisode recorded.
--- OUTSIDE RECORDS SUMMARY | 2025-06-17 23:05 | XMS_ITS | Encounter Summary ---
Author Organization [facility] Address [address] [place] [address] Care Team Providers Care Medical Surgical Tech Name Role Phone Shravan Jones DO Primary Care Provider Encounter Details Date Type Department Care Team (Late st Contact Info) Description 12/28/2016 Lab Requisition [facility] [address] [place] [address] [place] [address] David Ortega MD [address] [place] [address] Social History Tobacco Use Types Packs/Day Years Used Date Smoking Tobacco: Every Day Cigarettes Comments:pt lethargic Comments Unknown Sex and Gender Information Value Date Recorded Sex Assigned at Not on file Legal Sex Female 4:38 AM [employer] Gender Identity Not on file Sexual Orientation [...] PHOSPHORUS (12/28/2016 2:39 AM CDT) Pathologist [facility] PHOSPHORUS 3.4 2.5 - 4.9 mg/dL 12/28/2016 5:42 AM CDT [facility] Blood Collection / Unknown 12/28/2016 2:39 AM CDT 12/28/2016 5:01 AM CDT David Ortega MD CHEMISTRY ORDERABLES Final Res ult Performing Organization Address [facility] Co de Phone Number [facility] CLIA# [id number] [address] [place] [address] [id number] * MAGNESIUM LEVEL (12/28/2016 2:39 AM CDT) [facility] MAGNESIUM 1.6 1.6 - 2.6 mg/dL 12/28/2016 5:42 AM CDT [facility] Blood Collection / Unknown 12/28/2016 2:39 AM CDT 12/28/2016 5:01 AM CDT Narrative [facility] - 12/28/2016 5:42 AM CDT Due to Road [employer] update, MG+ reference range has changed from 1.8 - 2.4 mg/dL to the new reference range of 1.6 - 2.6 mg/dL. This will have limited patient impact. David Ortega MD CHEMISTRY ORDERABLES Final Res ult Performing Organization Address [facility] Co de Phone Number [facility] CLIA# [id number] [address] [place] [address] * PROTIME-INR (12/28/2016 2:39 AM CDT) [facility] PROTIME 15.0 12.3 - 15.5 Seconds 12/28/2016 5:16 AM CDT [facility] INR 1.1 0.8 - 1.2 12/28/2016 5:16 AM CDT [facility] Blood Collection / Unknown 12/28/2016 2:39 AM CDT 12/28/2016 5:01 AM CDT [place] [facility] - 12/28/2016 5:16 AM CDT Expected Values for INR: DVT/PE Goal INR 2.5; range 2.0 - 3.0 Valve Replacement Tissue Goal INR 2.5; range 2.0 - 3.0 Valve Replacement Mechanical Goal INR 3.0; range 2.5 - 3.5 POST-CT Goal INR 2.5; range 2.0 - 3.0 or Goal INR 3.0; range 2.5 - 3.5 Atrial Fibrillation Goal INR 2.5; range 2.0 - 3.0 Ischemic Stroke Goal INR 2.5; range 2.0 - 3.0 For additional information see Guidelines for Anticoagulation available from the pharmacy Wendy Vargas Pharm D. David Ortega MD HEMATOLOGY ORDERABLES Final Re sult [facility] CLIA# [id number] [address] [place] [address] * (ABNORMAL) PTT (12/28/2016 2:39 AM CDT) PTT 39.1(H) 24.8 - 38.8 seconds 12/28/2016 5:16 AM CDT [facility] Blood Collection / Unknown 12/28/2016 2:39 AM CDT 12/28/2016 5:01 AM CDT [place] [facility] - 12/28/2016 5:16 AM CDT Therapeutic Range: Hi-level PE/DVT heparin protocol 80.1 - 95.0 sec Lo-level PE/DVT heparin protocol 70.1 - 85.0 sec Cardiac Heparin Protocol 70.1 - 100.0 sec David Ortega MD HEMATOLOGY ORDERABLES Final Re sult [facility] CLIA# [id number] [facility] [place] [address] * (ABNORMAL) CBC WITH DIFFERENTIAL (12/28/2016 2:39 AM CDT) Pathologist [facility] WBC 11.0 4.5 - 11.0 K/uL 12/28/2016 5:09 AM CDT [facility] RBC 3.80(L) 4.20 - 5.40 M/uL 12/28/2016 5:09 AM CDT [facility] HEMOGLOBIN 9.3(L) 12.0 - 16.0 g/dL 12/28/2016 5:09 AM [facility] 30.6(L) 36.0 - 46.0 % 12/28/2016 5:09 AM CDT [facility] MCV 80.5(L) 84.0 - 103.0 fL 12/28/2016 5:09 AM CDT [facility] MCH 24.5(L) 27.0 - 34.0 pg 12/28/2016 5:09 AM CDT [facility] MCHC 30.4 30.0 - 35.0 g/dL 12/28/2016 5:09 AM CDT [facility] RDW 17.3(H) 11.0 - 14.5 % 12/28/2016 5:09 AM T [facility] RDW-STDEV 51.8 37.0 - 54.0 fL 12/28/2016 5:09 AM CDT [facility] PLATELETS 757(H) 140 - 440 K/uL 12/28/2016 5:09 AM CDT [facility] MPV 8.9 8.9 - 12.8 fL 12/28/2016 5:09 AM CDT [facility] NEUTROPHILS 65 42 - 75 % 12/28/2016 5:09 AM CDT [facility] LYMPHOCYTES 19(L) 24 - 44 % 12/28/2016 5:09 AM CDT [facility] MONOCYTES 10 2 - 10 % 12/28/2016 5:09 AM CDT [facility] EOSINOPHILS 5 0 - 7 % 12/28/2016 5:09 AM CDT [facility] BASOPHILS 1 0 - 1 % 12/28/2016 5:09 AM CDT [facility] IMMATURE GRANULOCYTES 1 0 - 2 % 12/28/2016 5:09 AM CDT [facility] NEUTROPHIL ABSOLUTE 7.19 2.00 - 8.00 K/uL 12/28/2016 5:09 AM CDT [facility] LYMPHOCYTE ABSOLUTE 2.04 1.20 - 4.00 K/uL 12/28/2016 5:09 AM CDT [facility] MONOCYTE ABSOLUTE 1.06(H) 0.10 - 0.60 K/uL 12/28/2016 5:09 AM CDT [facility] EOSINOPHIL ABSOLUTE 0.60 0.00 - 0.70 K/uL 12/28/2016 5:09 AM CDT [facility] BASOPHILS ABSOLUTE 0.07 0.00 - 0.20 K/uL 12/28/2016 5:09 AM CDT [facility] IMMATURE GRANULOCYTES ABSOLUTE 0.07 0.00 - 0.10 K/uL 12/28/2016 5:09 AM T [facility] Blood Collection / Unknown 12/28/2016 2:39 AM CDT 12/28/2016 5:01 AM CDT us David Ortega MD HEMATOLOGY ORDERABLES Final Re sult [facility] CLIA# [id number] [address] [place] [phone] * (ABNORMAL) COMPREHENSIVE METABOLIC PANEL (12/28/2016 2:39 AM CDT) SODIUM 143 136 - 145 mmol/L 12/28/2016 5:47 AM CDT [facility] POTASSIUM 3.3(L) 3.5 - 5.1 mmol/L 12/28/2016 5:47 AM [facility] CHLORIDE 103 98 - 107 mmol/L 12/28/2016 5:47 AM [facility] CO2 29 21 - 32 mmol/L 12/28/2016 5:47 AM [facility] CALCIUM 8.9 8.4 - 10.1 mg/dL 12/28/2016 5:47 AM [facility] BUN 13 7 - 17 mg/dL 12/28/2016 5:47 AM [facility] CREATININE 0.70 0.55 - 1.02 mg/dL 12/28/2016 5:47 AM [facility] GLUCOSE 46(LL) 74 - 106 mg/dL 12/28/2016 5:47 AM [facility] TOTAL PROTEIN 8.2 6.4 - 8.2 g/dL 12/28/2016 5:47 AM [facility] ALBUMIN 1.8(L) 3.4 - 5.0 g/dL 12/28/2016 5:47 AM [facility] BILIRUBIN TOTAL 0.2 0.2 - 1.0 mg/dL 12/28/2016 5:47 AM [facility] ALKALINE PHOSPHATASE 93 25 - 100 U/L 12/28/2016 5:47 AM [facility] AST 18 15 - 37 U/L 12/28/2016 5:47 AM [facility] ALT 18 13 - 61 U/L 12/28/2016 5:47 AM [facility] GFR >60 >=60 mL/min/1.7 3 sq meter 12/28/2016 5:47 AM [facility] Comment: eGFR [...] 3 sq meter 12/28/2016 5:47 AM CDT [facility] ANION GAP 11 4 - 30 mmol/L 12/28/2016 5:47 AM CDT [facility] Blood Collection / Unknown 12/28/2016 2:39 AM CDT 12/28/2016 5:01 AM CDT us David Ortega MD CHEMISTRY ORDERABLES Final Res ult [facility] CLIA# [id number] [address] [place] [address] documented in this encounter Visit Diagnoses Not on filedocumented in this encounter Care Teams Medical Surgical Tech Relationship Specialty Start Date End Date Shravan Jones DO PCP - General Family Practice 12/04/16 documented as of this encounter
[2025-06-17 23:23] VITALS: BP 119/77; PULSE 72; RESP 18; TEMP 36.7; O2SAT 98; BMI 27.5
[2025-06-18 01:37] VITALS: BP 152/80; PULSE 68; RESP 16; O2SAT 100
--- NOTE | 2025-06-18 02:00 | XRR_ITS ---
PROCEDURE INFORMATION: Exam: XR Cervical Spine Exam date and time: 06/18/2025 2:21 AM Age: 39 years old Clinical indication: C/O neck pain. No injury. TECHNIQUE: Imaging protocol: Radiologic exam of the cervical spine. Views: 2 or 3 views. COMPARISON: CR XR cervical spine 3V* [id number] 11/10/2024 1:19 PM FINDINGS: Bones/joints: Normal. No acute fracture. Normal alignment. Soft tissues: Unremarkable. XR/XR cervical spine 3V* [id number] IMPRESSION: No acute findings.
--- NOTE | 2025-06-18 02:03 | W.ED.NECK ---
HPI - Neck Pain/Injury General: Chief Complaint: Neck Pain/Injury Stated Complaint: Neck pain and both legs,back and arms Time Seen by Provider: 06/18/25 01:50 History of Present Illness: This 39-year-old female presents with worsening neck pain in the setting of a known congenital cervical spine defect. She describes associated migraines and reports new onset bilateral lower extremity tingling with near numbness, as well as bilateral hand symptoms. Additionally, she experiences significant back pain and describes a characteristic symptom where standing and walking produces a sensation of her spine being pushed into her head. The pain appears to be localized primarily to the upper cervical region. She denies fever or other systemic symptoms. The patient has not taken any medications for symptom relief at home. Related Data Home Medications ?Medication ?Instructions ?Recorded ?Confirmed gabapentin 100 mg capsule 100 mg PO TID 12/27/23 06/14/25 clopidogrel 75 mg tablet 75 mg PO DAILY 04/28/24 06/14/25 escitalopram oxalate 20 mg tablet 20 mg PO DAILY anxiety 02/14/25 06/14/25 folic acid 1 mg tablet 1 mg PO DAILY 02/14/25 06/14/25 hydralazine 25 mg tablet 12.5 mg PO BID 02/14/25 06/14/25 nitroglycerin 0.4 mg sublingual See Rx Instructions .Route .COMPLEX 02/22/25 06/14/25 tablet cyclobenzaprine 10 mg tablet 10 mg PO TID PRN MUSCLE SPASM 04/22/25 06/14/25 tramadol 50 mg tablet 50 mg PO DAILY 04/22/25 06/14/25 bumetanide 1 mg tablet 1 mg PO DAILY 06/14/25 06/14/25 clindamycin HCl 300 mg capsule 300 mg PO BID x7days 06/14/25 06/14/25 diphenhydramine HCl 25 mg capsule 25 mg PO TID PRN itching/rash 06/14/25 06/14/25 (Benadryl) hydroxyzine HCl 25 mg tablet 25 mg PO BID 06/14/25 06/14/25 sodium polystyrene sulfonate 15 15 g PO DAILY PRN elevated 06/14/25 06/14/25 gram oral powder potassium Previous Rx's ?Medication ?Instructions ?Recorded blood-glucose sensor ([employer] G6 #3 ea 06/12/22 Sensor device) blood-glucose transmitter (Dexcom #1 ea 06/12/22 G6 Transmitter device) blood-glucose,radius corner machine 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,cont #1 ea 06/12/22 (Dexcom G6 Private Duty Nurse) sevelamer carbonate 800 mg tablet 800 mg PO TID #90 tabs 09/16/23 aspirin 81 mg tablet,delayed 81 mg PO QAM 30 days #30 tabs 03/28/24 release atorvastatin 40 mg tablet 40 mg PO BEDTIME 30 days #30 tabs 03/28/24 AFO brace #1 ea 04/20/24 diabetic shoes with 3 inserts #1 ea 04/20/24 amlodipine 5 mg tablet 5 mg PO DAILY #30 tabs 09/30/24 colchicine 0.6 mg tablet 0.6 mg PO DAILY #30 tabs 04/23/25 isosorbide mononitrate 60 mg 60 mg PO DAILY #30 tabs 04/23/25 tablet,extended release 24 hr metoclopramide HCl 5 mg tablet 5 mg PO Q8H PRN nausea and 05/23/25 (Reglan) vomiting #20 tabs insulin aspart U-100 100 unit/mL See Rx Instructions .Route 06/03/25 subcutaneous solution (Novolog .COMPLEX #10 mL U-100 Insulin aspart) methocarbamol 750 mg tablet 750 mg PO Q6H PRN spasms #20 tabs 06/13/25 naproxen 500 mg tablet (Naprosyn) 500 mg PO BID PRN pain #20 tabs 06/13/25 Allergies Allergy/AdvReac Type Severity Reaction Status Date / Time acetaminophen AdvReac Mild ADR-Gastrointestinal Verified 05/30/25 22:14 Upset PFSH ED PFSH: Medical History Insulin dependent diabetes mellitus with complications Chest pain Diabetes mellitus Primary hypertension HTN (hypertension), benign Hyperkalemia Headache Accelerated hypertension Uncontrolled type 1 diabetes mellitus ESRD (end stage renal disease) Dialysis complication Hypoglycemia Hemodialysis catheter dysfunction Colitis End stage renal disease on dialysis COPD (chronic obstructive pulmonary disease) Transaminitis Intractable nausea and vomiting Hyperlipidemia CHF (congestive heart failure), NYHA class III Pulmonary hypertension 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, unspecified vessel or lesion type Neurogenic bladder COVID-19 Tobacco dependence Drug abuse Anemia Community acquired pneumonia Esophagitis Long-term insulin use History of pancreatitis Celiac disease Recurrent UTI Non-alcoholic fatty liver disease Arnold-Chiari malformation Diabetic gastroparesis -continue Reglan Diabetic neuropathy associated with type 1 diabetes mellitus Headache, common migraine, intractable, with status migrainosus Pleural effusion 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 History of lung surgery -s/p LLL lobectomy secondary to cavitary pneumonia (2017) History of endoscopy History of cholecystectomy Family History Grandfather Diabetes Mother CAD (coronary artery disease) Diabetes Heart disease Hypertension Brother Acute lymphoblastic leukemia (ALL) in child Grandmother Thyroid disease Denies family history of Colon cancer Ovarian cancer Prostate cancer Hyperlipidemia Breast cancer Uterine cancer Stroke Social History Smoking and tobacco/nicotine status: former use of tobacco/nicotine Quit status (tobacco/nicotine): has quit using Former quit date comment: She previously smoked <1/2 PPD, quit July 2023. 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 [employer] Female Reproductive History: Spontaneous abortions: No Physical Exam Const: COMMON NORMALS: no acute distress GENERAL APPEARANCE: cooperative; not ill appearing ORIENTATION/CONSCIOUSNESS: Yes awake, Yes oriented to person, Yes oriented to place and Yes oriented to time HENMT: COMMON NORMALS: normocephalic, atraumatic and Normal external nose present HEAD & SCALP: normocephalic and atraumatic FACE & SINUS: normal facial exam and face symmetric NOSE: Normal external nose present Eye: COMMON NORMALS: Equal, round and reactive pupils present and EOMs intact bilaterally PUPIL: Yes Equal, round and reactive pupils present Neck/C-Spine: GENERAL: Yes trachea midline CERVICAL SPINE: Yes cervical ROM normal, Yes Cervical spine tenderness (upper) and No step off deformity OTHER: spurling test negative for radicular pain Resp: COMMON NORMALS: clear to auscultation bilaterally AUSCULTATION: clear to auscultation bilaterally Cardio: COMMON NORMALS: regular rate and regular rhythm RATE: regular rate RHYTHM: regular rhythm Neuro: SENSORIUM/ORIENTATION: Yes oriented to person, Yes oriented to place and Yes oriented to time Course Vital Signs: Vital signs: Vital Signs Temperature 98.0 F 06/17/25 23:23 Pulse Rate 69 06/18/25 02:43 Respiratory Rate 17 06/18/25 02:43 Blood Pressure 171/65 06/18/25 02:43 Pulse Oximetry 99 06/18/25 02:43 Oxygen Delivery Me thod Room Air 06/17/25 23:23 MDM - Neck Pain/Injury Medical Decision Making The patient moves all extremities equally. There is no focal signs of weakness. Sensation is intact. She has no red flag symptoms. She complains of pain. She is well-known to the emergency department service for complaints of pain in various areas. She is given pain and nausea medication by injection here. X-ray of the cervical spine reveals no significant spondylosis, no subluxation, no acute findings Lab Data Radiology Impressions Cervical Spine X-Ray 06/18/25 02:00 IMPRESSION: No acute findings. All radiology interpretation(s) finalized by discharge Discharge Plan Discharge Patient Disposition: Home Clinical Impression: Neck pain Condition: Stable Prescriptions: No Action (DME) AFO brace See Rx Instructions .Route .MEDSUPPLY Qty: 1 0RF Rx Instructions: As directed to the shoe guys ([facility] [place] diabetic shoes with 3 inserts See Rx Instructions .Route .MEDSUPPLY Qty: 1 0RF Rx Instructions: As directed to the shoe guys ([facility] [place]) Dexcom G6 Private Duty Nurse Misc See Rx Instructions .Route Qty: 1 0RF Rx Instructions: As directed (DME) Dexcom G6 Sensor Device See Rx Instructions .Route Qty: 3 0RF Rx Instructions: As directed ([facility] [place]) Dexcom G6 Transmitter Device See Rx Instructions .Route Qty: 1 0RF Rx Instructions: As directed insulin aspart U-100 [Novolog U-100 Insulin aspart] 100 unit/mL solution See Rx Instructions .ROUTE .COMPLEX MDD 35 units Qty: 10 0RF Rx Instructions: 35 units daily via insulin pump; atorvastatin 40 mg tablet 40 mg PO BEDTIME 30 Days Qty: 30 0RF aspirin 81 mg tablet,delayed release (DR/EC) 81 mg PO QAM 30 Days Qty: 30 0RF amlodipine 5 mg Tablet 5 mg PO DAILY Qty: 30 0RF metoclopramide HCl [Reglan] 5 mg tablet 5 mg PO Q8H PRN (Reason: nausea and vomiting) Qty: 20 0RF clindamycin HCl 300 mg capsule 300 mg PO BID diphenhydramine HCl [Benadryl] 25 mg Capsule 25 mg PO TID PRN (Reason: itching/rash) bumetanide 1 mg tablet 1 mg PO DAILY Rx Instructions: on non dialysis days hydroxyzine HCl 25 mg tablet 25 mg PO BID sodium polystyrene sulfonate 15 gram powder 15 g PO DAILY PRN (Reason: elevated potassium) sevelamer carbonate 800 mg Tablet 800 mg PO TID Qty: 90 0RF gabapentin 100 mg Capsule 100 mg PO TID clopidogrel 75 mg tablet 75 mg PO DAILY hydralazine 25 mg tablet 12.5 mg PO BID folic acid 1 mg tablet 1 mg PO DAILY escitalopram oxalate 20 mg tablet 20 mg PO DAILY nitroglycerin 0.4 mg tablet, sublingual See Rx Instructions .ROUTE .COMPLEX Rx Instructions: DISSOLVE ONE TABLET UNDER THE TONGUE EVERY 5 MINUTES NEEDED FOR CHEST PAIN. DO NOT EXCEED A TOTAL OF 3 DOSES IN 15 MINUTES. tramadol 50 mg tablet 50 mg PO DAILY cyclobenzaprine 10 mg tablet 10 mg PO TID PRN (Reason: MUSCLE SPASM ) colchicine 0.6 mg tablet 0.6 mg PO DAILY Qty: 30 0RF isosorbide mononitrate 60 mg tablet extended release 24 hr 60 mg PO DAILY Qty: 30 0RF methocarbamol 750 mg tablet 750 mg PO Q6H PRN (Reason: spasms) Qty: 20 0RF naproxen [Naprosyn] 500 mg tablet 500 mg PO BID PRN (Reason: pain) Qty: 20 0RF Discharge Orders: Discharge ED (Routine); Ordered 06/18/25 Ordered By: Jak Larose Referrals: Elizabeth Dougherty, SCIENTIFIC EDITOR [Primary Care Provider, Unknown] - 4-7 days Patient Instructions: Neck Pain (ED), Opioid Safety, Pain Management, Patient Portal & [place] Instructions Activity Restrictions/Additional Instructions: Call your doctor for follow-up appointment. Print Language: British Coding Level of Care Code ED Machine I Trimmer for Reji Chandler
[2025-06-18] MEDS: diphenhydrAMINE 50 mg/mL SDV 1mL 25 MG IM (02:07)
--- NOTE | 2025-06-18 02:17 | PC.NURSE ---
Called pharmacy about Dilaudid not verified yet so cant give. She stated she would have someone look at it and verify
[2025-06-18] MEDS: HYDROmorphone 0.5 MG/0.5 ML INJ 1.5 MG IM (02:21)
[2025-06-18 02:43] VITALS: BP 171/65; PULSE 69; RESP 17; O2SAT 99
== END 2025-06-18 02:55 | disposition home or self-care (01) ==
PROVIDERS: Emergency Provider Emergency Medicine; PCP Nurse Practitioner Family
DX: M54.2 Cervicalgia (principal); Z79.4 Long term (current) use of insulin; Z79.82 Long term (current) use of aspirin; Z79.02 Long term (current) use of antithrombotics/antiplatelets; Z87.891 Personal history of nicotine dependence; J44.9 Chronic obstructive pulmonary disease, unspecified; E78.5 Hyperlipidemia, unspecified; E10.22 Type 1 diabetes mellitus with diabetic chronic kidney disease; I13.2 Hypertensive heart and chronic kidney disease with heart failure and with stage 5 chronic kidney disease, or end stage renal disease; I50.9 Heart failure, unspecified; N18.6 End stage renal disease; Z99.2 Dependence on renal dialysis
CPT/HCPCS: 72040; 96372; 99284; J1171; J1200; Q0162

== ENCOUNTER 2025-06-21 07:58 | Emergency (ER) | payer MEDICARE, MEDICAID, SELFPAY ==
--- NOTE | 2025-06-21 07:50 | ECG_ITS ---
[facility] Test Date: 2025-06-21 Pat Name: Donita Aguilar Department: Room: Gender: Female Orthopedic Cast Specialist: : 1985 Requested By: Ronny Ayala Order Number: [id number] Faviola MD: Vance Valdez M.D. Measurements Intervals [place] Rate: 72 P: 60 NM: 187 QRS: -14 QRSD: 107 T: 17 QT: 440 QTc: 485 Interpretive Statements SINUS RHYTHM MODERATE VOLTAGE CRITERIA FOR LVH, CONSIDER NORMAL VARIANT [MEETS CRITERIA IN ONE OF: R(aVL), S(V1), R(V5), R(V5/V6)+S(V1)] POSSIBLE ANTERIOR MYOCARDIAL INFARCTION , OF INDETERMINATE AGE [30 ms Q WAVE IN V3/V4, OR R < 0.2 mV IN V4] Compared to ECG 06/14/2025 09:33:41 POOR R WAVE PROGRESSION IS NEW Electronically Signed On 06-24-2025 16:34:42 ALPINE PATROLLER by Vance Valdez M.D. [email or web address] [id number]
--- NOTE | 2025-06-21 07:50 | XR_ITS ---
WS: [id number] Portable AP upright chest, 06/21/2025 Clinical Data: cp Comparison: Portable chest, 06/14/2025 Findings: No nodules, masses or effusions are seen. The heart is normal. The pulmonary vascularity is not increased. No pneumonia or pneumothorax is seen. Cardiac stents are seen. There is widening between the left fourth and fifth rib consistent with prior thoracotomy. The left diaphragm is slightly elevated. XR/XR chest 1V portable [id number] Impression: Left thoracotomy.
--- OUTSIDE RECORDS SUMMARY | 2025-06-21 08:01 | XMS_ITS | Continuity of Care Document ---
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 [facility] 04/30/2024 11:08:42 03/31/20 24 plain X-ray of chest completed [facility] 04/01/2024 14:05:05 03/27/20 24 imaging guided percutaneous transluminal angioplasty of coronary artery with contrast completed [facility] L[facility] 10/05/2024 10:23:19 02/28/20 24 radiographic procedure on chest and/or abdomen completed [facility], LJacoboL.CJacobo 03/04/2024 15:02:31 02/28/[address] of abdomen completed [facility] 03/04/2024 15:03:26 01/19/20 24 diagnostic radiography of abdomen completed [facility] 01/21/2024 17:26:25 01/06/20 24 plain X-ray of chest completed [facility] 01/07/2024 15:42:42 12/27/19 24 plain X-ray of chest completed [facility] 12/29/2023 23:23:06 12/27/19 24 CT of chest, abdomen and pelvis completed [facility] 12/29/2023 23:32:58 12/24/19 24 plain X-ray of chest completed [facility], LJacoboLJacoboC. 12/29/2023 23:56:29 12/20/[address] of chest completed [facility], LJacoboLJacoboCJacobo 12/21/2023 12:33:52 12/20/19 24 plain X-ray of chest completed [facility] 12/21/2023 12:34:44 12/09/19 24 plain X-ray of chest completed [facility] 12/12/2023 10:16:37 12/05/19 24 plain X-ray of chest completed [facility] 12/06/2023 13:24:46 11/28/19 24 cardiac catheterization completed [facility] 12/06/2023 13:11:07 11/28/19 24 imaging guided percutaneous transluminal angioplasty of coronary artery with contrast completed [facility] 10/05/2024 10:22:55 11/27/19 24 plain X-ray of chest completed [facility] 11/28/2023 10:19:35 10/24/19 24 imaging guided percutaneous transluminal angioplasty of coronary artery with contrast completed [facility], L.L.CJacobo 10/05/2024 10:22:32 10/16/19 24 imaging guided percutaneous transluminal angioplasty of coronary artery with contrast completed [facility], L.L.C[facility]obo 10/05/2024 10:22:12 10/07/19 24 plain X-ray of chest completed [facility], DonteLJacoboCJacobo 10/08/2023 17:52:40 09/20/19 24 echocardiography completed [facility], LJacoboL.CJacobo 09/26/2023 12:48:56 lobectomy of lung completed XIMENAMAHI KEATING [facility], KaelynCJacobo 10/10/2023 12:32:47 amputation completed [facility], LJacoboL.CJacobo 08/24/2024 12:24:04 cholecystectomy completed [facility], DonteLJacoboCJacobo 09/13/2024 14:49:22 Imaging Results None recorded. Procedure Notes None recorded. Medical Equipment None Reported. Allergies Allergen ID Allergen Name Allergen Category Reaction Reaction Severity Criticality Documentation Date Start Date Code Code System Note Provider Name and Address Organization Details Recorded Time 89256 acetamino phen medicatio n abdominal pain moderate low 01/19/20232021 161 RxNorm GI upset /into leran graham coles [facility] 4 07:57:42 81081 acetamino phen medicatio n Not available Not available Not available 02/21/20242023 161 RxNorm NAJMA HOUSER, [facility] [address] [place], [address] , [facility], DonteL.CJacobo 5 15:59:31 53027 ranolazin e medicatio n Not available Not available Not available 04/14/2025 38384 RxNorm Hallu cinat ions XIMENA coles [facility], LJacoboL.C. 11:33:58 Medications Name Sig [...] completed Not Available Not Available Not Available clindamyc in HCl 300 mg capsule TAKE 1 CAPSULE BY MOUTH TWICE DAILY FOR 7 DAYS active Not Available Not Available No t Available azithromy whitney 250 mg tablet TAKE [...] wanted her [place] [facility] [place]28 Not Available Not Available [...] times per day 10/09 completed VO CH/jl; 74448; Recorded 05/14/20 19 10:02AM by Leydi Jessica [...] Updated DateTime 5 152.4 cm 27.7 kg/m2 80173.1 2 g 98 % 80 /min 18 /min 136/80 mm[Hg] XIMENA KEATING [facility] 15:40:44 Social History Question Answer Notes LastModified by Organizat ion Details LastModified Time Tobacco Smoking Status Former Smoker Quit 07/2023 XIMENA KEATING [facility] 12/24/2023 12:30:16 What Type Of Diet Are You Following? REGULAR [email or web address] Information not available 12/24/2023 Which Illicit Or Recreational Drugs Have You Used? Smokes Meth [email or web address] Information not available 10/10/2023 When Did You [...] is your level of alcohol consumption? None [email or web address] Information not available 10/10/2023 Are you currently employed? No disabled [email or web address] Information not available 10/10/2023 Are you able to walk independently without assistance or assistive devices? [email or web address] Information not available 10/10/2023 Are you able to care for yourself independently? No Mother is her caregiver. [email or web address] Information not available 10/10/2023 Do you or have you ever used any nicotine-free cigarettes, vape, or chewing tobacco? No Information not available 12/24/2023 Mental Status None recorded. Family History Relationship Description Onset Age of this Age Resolved Age Notes LastModified by Organization Details LastModified Time Mother Myocardial infarction In her 50's [email or web address] Not available 12/29/2023 23:44:26 Mother Rheumatoid arthritis Not available 12/28 23:44:44 Brother Acute lymphoid leukemia [email or web address] Not available 10/18 18:24:23 Medical History Condition [...] Time pneumococcal polysaccharide PPV23 8 completed SUZANNE HETAON [address] [place] [address], [address], [facility], Billie 12/24/2023 12:51:09 Past Encounters Encounter ID Performer Location Encounter Start Date Encounter Closed Date Diagnosis/Indication Diagnosis SNOMED-CT Code Diagnosis ICD10 Code Diagnosis IMO Codes Diagnosis Note [id number] SUZANNE HEATON [facility] ([facility]) [address] [place] [address] 04/14/2025 11:22:24 04/14/2025 14:24:51 Chronic chest pain 8056042307 13812 R07.9 G89.29 336284 Essential hypertension 97665042 I10 49593 Took her blood pressure medication about an hour ago. Pressure at home has been pretty good. Type 1 mainor betes mellitus 40413740 E10.[address] Ortega. Will schedule pump training with patient on a MW. Will have mortgage loan officer set up a time where she can use an exam room here. [id number] SUZANNE HEATON [facility] ([facility]) [address] [place] [address] 05/05/2025 14:52:32 05/05/2025 16:30:15 Pain of knee region 6891360971 M25.569 Chest pain 45960868 R07. 9 308974 Recurrent. Following with cardiology . Recently started colchicine daily and it has been helpful. Chronic ki dney disease stage 5 839317965 N18.5 Z99.2 Currently on dialysis. Generalize d anxiety disorder 86643476 F41.1 66616 Unable to lay still for MRI. Will [...] 05/05/2025 1 [place] Donita Aguilar [id number] Donita Aguilar 05/05/2025 2 [place] Donita Yenni Lauren [id number] Donita Aguilar Notes Date Note Type Note Provider Name and Address Organization Details Recorded Time 05/05/2025 text/html Generalized Anxi ety DisorderReported by Patient Joint PainReported by PatientHPIFor quality, patient reportsdull. For location, patient reportsleft knee. For severity, patient reportsno change. For duration, patient reportspresent <1 month. For timing, patient reportsconstant. NAJMA HOUSER, [employer] [address] [place], [address], [facility] 05/06/2025 10:11:39 OBGyn Episode No OBEpisode recorded.
--- OUTSIDE RECORDS SUMMARY | 2025-06-21 08:01 | XMS_ITS | Clinical Summary ---
Author Organization [facility] Facility Address [address] [address] Care Team Providers Care Electrician [employer] Name Role Phone Alexis Garcia MD Primary Care Provider [phone] Encounters Date Type Department Care Team Description 06/19/2025 Orders Only [facility], [facility] [address] [place] [address] Chey Navas MD 06/10/2025 Orders Only [facility], [facility] [address] [place] [address] Chey Navas MD 06/08/[address] [place] [address] [facility] [address] [place] [address] Karlene Cespedes NP End stage renal disease; Dependence on renal dialysis 06/03/2025 Orders Only [facility] [place] [address] [place] [address] Chey Navas MD 06/01/2025 Treatment [facility], [facility] [address] [place] [address] Karlene Cespedes NP End stage renal disease; Dependence on renal dialysis 05/27/2025 Orders Only [facility], [facility] [address] [place] [address] Chey Navas MD 05/25/2025 Treatment [facility] [employer], [facility] [address] [place] [address] Melissa Wiley NP Secondary hyperaldosteronism; Protein-calorie malnutrition; End stage renal disease; Dependence on renal dialysis 05/19/2025 Orders Only [facility], [facility] [address] [place] [address] Chey Navas MD 05/17/2025 Treatment [facility], [facility] [address] [place] [address] Melissa Wiley NP End stage renal disease; Dependence on renal dialysis 05/13/2025 Orders Only [facility], [facility] [address] [place] [address] Chey Navas MD 05/11/2025 Orders Only [facility], [facility] [address] [place] [address] Chey Navas MD 05/11/2025 Treatment [facility], [facility] [address] [place] [address] Chey Navas MD End stage renal disease; Dependence on renal dialysis 05/06/2025 Orders Only [facility], [facility] [address] [place] [address] Chey Navas MD 05/04/2025 Orders Only [facility], [facility] [address] [place] [address] Chey Navas MD 05/04/[address] [place], [place] [address], [facility] [address] [place] [address] Melissa Wiley NP End stage renal disease; Dependence on renal dialysis 04/29/2025 Orders Only [facility], [facility] [address] [place] [address] Chey Navas MD 04/27/[address] [place], [place] [address], [facility] [address] [place] [address] Melissa Wiley NP End stage renal disease; Dependence on renal dialysis 04/22/2025 Orders Only [facility], [facility] [address] [place] [address] Chey Navas MD 04/20/[address] [place] [address], [facility] [address] [place] [address] Chey Navas MD End stage renal disease; Dependence on renal dialysis 04/15/2025 Orders Only [facility], [facility] [address] [place] [address] Chey Navas MD 04/13/2025 Orders Only [facility], [facility] [address] [place] [address] Chey Navas MD 04/13/2025 [facility], [facility] [address] [place] [address] Melissa Wiley NP End stage renal disease; Dependence on renal dialysis 04/01/2025 Orders Only [facility], [facility] [address] [place] [address] Chey Navas MD 03/30/[address] [place], [place] [address], [facility] [address] [place] [address] Karlene Cespedes NP End stage renal disease; Dependence on renal dialysis 03/25/[address] [place] [address] [facility], [facility] [address] [place] [address] Melissa Wiley NP End stage renal disease; Dependence on renal dialysis 03/25/2025 Orders Only [facility], [facility] [address] [place] [address] Chey Navas MD from Last 3 Months [...] Priority Date/Time Associated Diagnosis Comments HEMOGLOBIN Routine 06/19/2025 HEMOGLOBIN Routine 06/10/2025 HEMOGLOBIN Routine 06/03/2025 SPECTRA [...] Last 3 Months Results * (ABNORMAL) Hemoglobin (06/19/2025) Only the most recent of6 resultswithin the time period is included. Hemoglobin 10.9(L) 11.7 - 14.0 g/dL [facility] 06/19/2025 06/18/2025 2:2 7 PM TRANSPORTATION SUPERVISOR Narrative Resulting Agency Comment Performing Organization Information: Site ID: FRANCISCO JAVIER Name: [facility] Address: [address] [place] [phone] Director: Jennifer De Jesus MD Chey Navas MD LAB BLOOD ORDERABLES Final Re sult Performing Organization Address [facility] de Phone Number [facility] [address] * (ABNORMAL) Iron and TIBC (05/27/2025) Only the most recent of2 resultswithin the time period is included. Iron, Total 89 40 - 190 mcg/dL [facility] TIBC 201(L) 250 - 450 mcg/dL (calc) [facility] Iron Saturation (TSat) 44 16 - 45 % (calc) [facility] 05/27/2025 05/26/2025 1:1 3 PM TRANSPORTATION SUPERVISOR Narrative Resulting Agency Comment Performing Organization Information: Site ID: FRANCISCO JAVIER Name: [facility] Address: [address] [place] [phone] Director: Jennifer De Jesus MD Chey Navas MD LAB BLOOD ORDERABLES Final Re sult Performing Organization Address [facility]/ZIP Co de Phone Number [facility] [address] [place] [address] * SPECIMEN INTEGRITY COMPROMISED (05/27/2025) SPECIMEN INTEGRITY COMPROMISED [facility] Comment: Whole blood, unspun or partially spun gel barrier tube was received more than 6 hours since collection. A false elevation of K, Phos and LD as well as a false decrease in glucose may occur due to prolonged contact with red cells. 05/27/2025 05/26/2025 1:1 3 PM TRANSPORTATION SUPERVISOR Narrative Resulting Agency Comment Performing Organization Information: Site ID: [id number] Name: [facility]Michelle Address: [address] [place] [phone] Director: Jennifer De Jesus MD us Chey Navas MD LAB BLOOD ORDERABLES Final Re sult Performing Organization Address [facility] de Phone Number [facility] [address] [place] [address] * [facility] Results (05/27/2025) Only the most recent of4 resultswithin the time period is included. Pathologist [facility] eKt/V (Tattersall) 1.42 [facility] eKdrt/V 1.41 [facility] WSTDKT/V 2.5 [facility] nPCR_HD 0.63 [facility] eKt/V Gotch 1.41 [facility] PCR 36.52 [facility] spKt/V Gotch 1.67 [facility] ge Center spKt/V (Daugirdas II) 1.66 [facility] eNPCR 0.59 [facility] 05/27/2025 05/27/2025 us Ordering Provider LAB BLOOD ORDERABLES Final Result Performing Organization Address [facility] Co de Phone Number [facility] Contact Performing lab Unknown, [place] * Post Dialysis BUN (05/27/2025) Only the most recent of4 resultswithin the time period is included. BUN Post Dialysis 7 7 - 25 mg/dL [facility] 05/27/2025 05/26/2025 1:1 3 PM TRANSPORTATION SUPERVISOR Narrative Resulting Agency Comment Performing Organization Information: Site ID: FRANCISCO JAVIER Name: Alona Major Address: [id number] [place] [phone] Director: Jennifer De Jesus MD Chey Navas MD LAB BLOOD ORDERABLES Final Re sult Performing Organization Address [facility]/ZIP Co de Phone Number [facility] [address] [place] [phone] * Differential with WBC (05/27/2025) Only the [...] [facility] 05/27/2025 05/26/2025 1:1 3 PM TRANSPORTATION SUPERVISOR Narrative Resulting Agency Comment Performing Organization Information: Site ID: FRANCISCO JAVIER Name: Alona Major Address: [address] [place] [address] Director: Jennifer De Jesus MD us Chey Navas MD LAB BLOOD ORDERABLES Final Re sult [facility] [address] [place] [address] * Platelet count (05/27/2025) Only the most recent of2 resultswithin the time period is included. Pathologist [facility] Platelets 154 140 - 400 Thousand/uL [facility] 05/27/2025 05/26/2025 1:1 3 PM TRANSPORTATION SUPERVISOR Narrative Resulting Agency Comment Performing Organization Information: Site ID: [id number] Name: [facility] Major Address: [address] [facility] [place] [address] Director: Jennifer De Jesus MD Chey Navas MD LAB BLOOD ORDERABLES Final Re sult [facility] [address] [facility] [place] [address] * (ABNORMAL) CBC (05/27/2025) Only the most recent of2 resultswithin the time period is included. [facility] WBC 6.4 3.8 - 10.8 Thousand/u [...] [facility] 05/27/2025 05/26/2025 1:1 3 PM TRANSPORTATION SUPERVISOR Narrative Resulting Agency Comment Performing Organization Information: Site ID: FRANCISCO JAVIER Name: Alona Major Address: [address] [place] [phone] Director: Jennifer De Jesus MD us Chey Navas MD LAB BLOOD ORDERABLES Final Re sult Performing Organization Address City/[facility] Co de Phone Number [facility] [address] [place] [phone] * (ABNORMAL) BUN (05/27/2025) Only the most recent of4 resultswithin the time period is included. BUN 31(H) 7 - 25 mg/dL [facility] 05/27/2025 05/26/2025 1:1 3 PM TRANSPORTATION SUPERVISOR Narrative Resulting Agency Comment Performing Organization Information: Site ID: [place] JAVIER Name: [facility]ona [facility] Address: [address] [place] [phone] Director: Jennifer De Jesus MD us Chey Navas MD LAB BLOOD ORDERABLES Final Re sult Performing Organization Address [facility] Co de Phone Number [facility] [address] [place] [phone] * Sodium (05/27/2025) Only the most recent of2 resultswithin the time period is included. Sodium 136 135 - 146 mmol/L [facility] 05/27/2025 05/26/2025 1:1 3 PM TRANSPORTATION SUPERVISOR Narrative Resulting Agency Comment Performing Organization Information: Site ID: FRANCISCO JAVIER Name: [facility] V[facility] Address: [address] [place], [place] [address] [address] Director: Jennifer De Jesus MD us Chey Navas MD LAB BLOOD ORDERABLES Final Re sult Performing Organization Address City/[facility] Co de Phone Number [facility] [address] [place] [phone] * Protein, total (05/27/2025) Only the most recent of2 resultswithin the time period is included. Total Protein 6.6 6.1 - 8.1 g/dL [facility] 05/27/2025 05/26/2025 1:1 3 PM TRANSPORTATION SUPERVISOR Narrative Resulting Agency Comment Performing Organization Information: Site ID: FRANCISCO JAVIER Name: Alona Major Address: [address] [place] [phone] Director: Jennifer De Jesus MD us Chey Navas MD LAB BLOOD ORDERABLES Final Re sult Performing Organization Address [facility] Co de Phone Number [facility]ona [facility] [address] * Potassium (05/27/2025) Only the most recent of3 resultswithin the time period is included. Potassium 4.3 3.5 - 5.3 mmol/L [facility] 05/27/2025 05/26/2025 1:1 3 PM TRANSPORTATION SUPERVISOR Narrative Resulting Agency Comment Performing Organization Information: Site ID: FRANCISCO JAVIER Name: Alona Major Address: [address] [place] [phone] Director: Jennifer De Jesus MD us Chey Navas MD LAB BLOOD ORDERABLES Final Re sult Performing Organization Address [facility] Co de Phone Number [facility] [address] [place], [place] [address] [address] * (ABNORMAL) Phosphorus (05/27/2025) Only the most recent of2 resultswithin the time period is included. Phosphorus 5.8(H) 3.0 - 4.5 mg/dL [facility] 05/27/2025 05/26/2025 1:1 3 PM TRANSPORTATION SUPERVISOR Narrative Resulting Agency Comment Performing Organization Information: Site ID: FRANC[place]CO JAVIER Name: [facility] Address: [address] [place] [phone] Director: Jennifer De Jesus MD Chey Navas MD LAB BLOOD ORDERABLES Final Re sult Performing Organization Address City/[facility] Co de Phone Number [facility] [address] * (ABNORMAL) Alkaline phosphatase (05/27/2025) Alkaline Phosphatase 155(H) 31 - 125 U/L [facility] 05/27/2025 05/26/2025 1:1 3 PM TRANSPORTATION SUPERVISOR Narrative Resulting Agency Comment Performing Organization Information: Site ID: FRANCISCO JAVIER Name: [facility] Address: [address] [place] [phone] Director: Jennifer De Jesus MD Chey Navas MD LAB BLOOD ORDERABLES Final Re sult Performing Organization Address [facility] Co de Phone Number [facility] [address] [place] [phone] * (ABNORMAL) PTH, Intact (05/27/2025) Only the [...] Normal High 05/27/2025 05/26/2025 1:1 3 PM TRANSPORTATION SUPERVISOR Narrative Resulting Agency Comment Performing Organization Information: Site ID: FRANCISCO JAVIER Name: [facility] Address: [address] [place] [phone] Director: Jennifer De Jesus MD Chey Navas MD LAB BLOOD ORDERABLES Final Re sult Performing Organization Address [facility] Co de Phone Number [facility] [phone] [place] [phone] * Magnesium (05/27/2025) [facility] Magnesium 2.0 1.6 - 2.5 mg/dL [facility] 05/27/2025 05/26/2025 1:1 3 PM TRANSPORTATION SUPERVISOR Narrative Resulting Agency Comment Performing Organization Information: Site ID: FRANCISCO JAVIER Name: [facility] Address: [address] [place] [phone] Director: Jennifer De Jesus MD Chey Navas MD LAB BLOOD ORDERABLES Final Re sult Performing Organization Address [facility] Co de Phone Number [facility] [address] [place], [place] [address] [address] * (ABNORMAL) Hemoglobin A1c (05/27/2025) [facility] Hemoglobin A1C 6.4(H) <5.7 % [facility] [...] for children. 05/27/2025 05/26/2025 1:1 3 PM TRANSPORTATION SUPERVISOR Narrative Resulting Agency Comment Performing Organization Information: Site ID: FRANC[place]CO JAVIER Name: [facility] Address: [address] [place] [address] Director: Jennifer De Jesus MD us Chey Navas MD LAB BLOOD ORDERABLES Final Re sult Performing Organization Address City/[facility] Co de Phone Number [facility] [address] [place] [address] * (ABNORMAL) Glucose, random (05/27/2025) Only the most recent of2 resultswithin the time period is included. Glucose 115(H) 65 - 99 mg/dL [facility] Comment: For someone without known diabetes, a glucose value between 100 and 125 mg/dL is consistent with prediabetes and should be confirmed with a follow-up test. 05/27/2025 05/26/2025 1:1 3 PM TRANSPORTATION SUPERVISOR Narrative Resulting Agency Comment Performing Organization Information: Site ID: FRANCISCO JAVIER Name: [facility] Address: [address] [place] [phone] Director: Jennifer De Jesus MD us Chey Navas MD LAB BLOOD ORDERABLES Final Re sult Performing Organization Address [facility] de Phone Number [facility] [address] * (ABNORMAL) Ferritin (05/27/2025) Ferritin 1,011(H) 16 - 154 ng/mL [facility] 05/27/2025 05/26/2025 1:1 3 PM TRANSPORTATION SUPERVISOR Narrative Resulting Agency Comment Performing Organization Information: Site ID: [id number] Name: [facility] Address: [address] [place] [phone] Director: Jennifer De Jesus MD us Chey Navas MD LAB BLOOD ORDERABLES Final Re sult Performing Organization Address [facility]/ZIP Co de Phone Number [facility] [address] [place] [address] * (ABNORMAL) Creatinine, serum (05/27/2025) Only the most recent of2 resultswithin the time period is included. Creatinine 6.06(H) 0.50 - 0.97 mg/dL [facility] 05/27/2025 05/26/2025 1:1 3 PM TRANSPORTATION SUPERVISOR Narrative Resulting Agency Comment Performing Organization Information: Site ID: FRANCISCO JAVIER Name: [facility] Address: [address] [place] [phone] Director: Jennifer De Jesus MD us Chey Navas MD LAB BLOOD ORDERABLES Final Re sult Performing Organization Address [facility] Co de Phone Number [facility] [address] * Chloride (05/27/2025) Only the most recent of2 resultswithin the time period is included. Chloride 98 98 - 110 mmol/L [facility] 05/27/2025 05/26/2025 1:1 3 PM TRANSPORTATION SUPERVISOR Narrative Resulting Agency Comment Performing Organization Information: Site ID: FRANCISCO JAVIER Name: [facility] Address: [address] [place] [phone] Director: Jennifer De Jesus MD us Chey Navas MD LAB BLOOD ORDERABLES Final Re sult Performing Organization Address [facility] Co de Phone Number [facility] [id number] [place] [phone] * CO2 (05/27/2025) Only the most recent of2 resultswithin the time period is included. Bicarbonate (CO2) 27 20 - 29 mmol/L [facility] 05/27/2025 05/26/2025 1:1 3 PM TRANSPORTATION SUPERVISOR Narrative Resulting Agency Comment Performing Organization Information: Site ID: FRANCISCO JAVIER Name: [facility] Address: [address] [place] [phone] Director: Jennifer De Jesus MD us Chey Navas MD LAB BLOOD ORDERABLES Final Re sult Performing Organization Address City/[facility]/ZIP Co de Phone Number [facility] [address] [place] [phone] * (ABNORMAL) Calcium (05/27/2025) Only the most recent of2 resultswithin the time period is included. Calcium 8.2(L) 8.6 - 10.0 mg/dL [facility] 05/27/2025 05/26/2025 1:1 3 PM TRANSPORTATION SUPERVISOR Narrative Resulting Agency Comment Performing Organization Information: Site ID: FRANCISCO JAVIER Name: Alona Videsa Address: [address] [place] [phone] Director: Jennifer De Jesus MD us Chey Navas MD LAB BLOOD ORDERABLES Final Re sult Performing Organization Address [facility] Co de Phone Number [facility] [address] [place] [phone] * (ABNORMAL) Albumin (05/27/2025) Only the most recent of2 resultswithin the time period is included. Albumin 3.4(L) 3.6 - 5.1 g/dL [facility] 05/27/2025 05/26/2025 1:1 3 PM TRANSPORTATION SUPERVISOR Narrative Resulting Agency Comment Performing Organization Information: Site ID: [place] JAVIER Name: [facility] Address: [address] [place] [phone] Director: Jennifer De Jesus MD us Chey Navas MD LAB BLOOD ORDERABLES Final Re sult Performing Organization Address City/[facility] Co de Phone Number [facility] [address] [place] [address] * (ABNORMAL) HEMATOLOGY (04/22/2025) Only the most recent of4 resultswithin the time period is included. Pathologist [facility] Hemoglobin 9.6(L) 12.0 - 16.0 g/dL [facility] Hemoglobin x 3 28.8(L) 36.0 - 48.0 % [facility] 04/22/2025 04/23/2025 9:0 0 AM CDT Narrative [facility] - 04/23/2025 Unless otherwise specified, test(s) performed at: [facility], [address] [place] [address] PAYROLL COORDINATOR: Jose Luis France M.D. For any questions, please call customer service at FREQUENCY:OTHER Resulting Agency Comment Specimen source: Blood us Chey Navas MD LAB BLOOD ORDERABLES Final [facility] Performing Organization Address [facility] Co de Phone Number [facility] See order comments or contact performing lab Unknown, [place] * (ABNORMAL) [facility] Chemistry (04/13/2025) Only the most recent of2 resultswithin the time period is included. [facility] PTH 561(H) 16 - 80 pg/mL [email or web address] Labs 04/13/2025 04/14/2025 9:5 3 AM CDT Narrative [facility] - 04/14/2025 Unless otherwise specified, test(s) performed at: [facility], [address] [place] [id number] PAYROLL COORDINATOR: Jose Luis France M.D. For any questions, please call customer service at FREQUENCY:OTHER Resulting Agency Comment Specimen source: Plasma us Chey Navas MD LAB BLOOD ORDERABLES Final Re sult Performing Organization Address City/[facility]/ZIP Co de Phone Number [facility] See order comments or contact performing lab Unknown, [place] * HD [facility]INET[facility] (03/25/2025) [facility] % Urea Reduction 79 65 - 80 % [facility] 03/25/2025 03/26/2025 11: 23 AM CDT Narrative Resulting Agency Comment Specimen source: Plasma Chey Navas MD LAB BLOOD ORDERABLES Final Re sult [facility] See order comments or contact performing lab Unknown, [place] * (ABNORMAL) POST CHEMISTRY (03/25/2025) BUN Post Dialysis 5(L) 6 - 19 mg/dL [facility] 03/25/2025 03/26/2025 11: 23 AM CDT Narrative [facility] - 03/26/2025 Unless otherwise specified, test(s) performed at: [facility], [address] [place], [place] [id number] PAYROLL COORDINATOR: Jose Luis France M.D. For any questions, please call customer service at FREQUENCY:MONTHLY Resulting Agency Comment Specimen source: Plasma Chey Navas MD LAB BLOOD ORDERABLES Final Re sult Performing Organization Address [facility]/ZIP Co de Phone Number [facility] See order comments or contact performing lab Unknown, [place] from Last [address] [place] [address] Medicaid [place] ([id number]) Medicare Care Teams Electrician Helper [employer] Relationship Specialty Start Date End Date Alexis Garcia MD [address] [place] [address] PCP - General Family Medicine 04/16/22
--- OUTSIDE RECORDS SUMMARY | 2025-06-21 08:01 | XMS_ITS | Encounter Summary ---
Author Organization [facility], [facility] Address [address] [place] [address] Phone Care Team Providers Care Immigration Case Manager Name Role Phone Alexis Garcia MD Primary Care Provider [phone] Encounter Details Date Type Department Care Team (Late st Contact Info) Description 12/29/2024 TCM in Dialysis Clinic [facility], [facility] [address] [place] [address] Yann Lozano NP [address] [place] [address] Social History Tobacco Use Types [...] 12/29/2024 The patient was seen for a jjse-dc-gqrv visit as part of Transitional Care Management services. Attending Aircraft Engine Installer: MACHO JOHANSEN Dialysis Location: [facility] Schedule: Shift: 2 INTERACTIVE CONTACT This tlyh-ph-adlw visit occurred within 2 business days of the patient?s discharge. 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 Current Response [employer] Allergies Allergen: acetaminophen Reaction: Nausea/Vomiting TREATMENT [...] to follow with cardiology, pcp, pulmonology and youth minister as noted on discharge. EDUCATION Education relevant [...] or secondary infection VISIT DIAGNOSES CPT Code 54604 - High complexity, seen within 7 days of discharge. I20.9 Angina pectoris (HCC) COMMENTS: Verified she has nitroglycerin on hand at home: reviewed appropriate usage. Instructed to call cardiology for follow up appointment K76.0 Fatty (change of) liver, not elsewhere classified COMMENTS: Newly dx on imaging. Per hospital records, has been referred to youth minister. Monitor for liver dysfunction, assess for any needed support J18.9 Pneumonia, unspecified organism COMMENTS: Monitor for impaired perfusion, fever/chills, increased SOB. If symptoms present, send for CXray. 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 Left main has luminal irregularity with distal 10% stenosis. Cardiology recommended medical management. Negative for angina on assessment today Reviewed symptoms, usage of nitro: instructed to call cardiology for follow up appt. 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
--- OUTSIDE RECORDS SUMMARY | 2025-06-21 08:02 | XMS_ITS | Data Portability ---
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 Steatoti c liver disease 425829671 Active 2023 XIMENA coles [facility] 4 12:27:02 Anemia 970552371 Active 2023 ELIZABETH HOUSER, [facility] [address] [place], [address], [facility] 5 11:47:10 Female pelvic inflamma tory disease 480266688 Active 2023 XIMENA coles [facility] 4 12:28:16 Mixed anxiety and depressi ve disorder 823246716 Active 2023 XIMENA coles [facility] 4 12:28:28 Pancreat itis 56424219 Active 2023 XIMENA coles [facility] 4 12:28:40 Diabetic ketoacid osis 082900156 Active 2023 recurren t XIMENA coles [facility] 4 12:28:57 Migraine 32251313 Active 2023 ELIZABETH HOUSER, [facility] [address] [place], [address], [facility] 5 15:59:15 Cardiome enoch 0794841 Active 2023 XIMENA coles [facility] 4 12:30:17 Edema 069790548 Active 2023 [facility] 4 23:45:39 Edema due to fluid overload 583608517 Active 2023 XIMENA coles [facility], [place] 4 23:45:54 End stage renal failure on dialysis 143741685 Active 2023 ELIZABETH HOUSER, [facility] [address] [place], [address], [facility], Billie 5 15:59:15 Esophagi tis 75302821 Active 2024 [facility] 5 18:23:17 Chronic pain 93211048 Active 2024 Davian Ren MD [address] [place], [address], [facility] 5 09:12:38 Generali zed anxiety disorder 77871047 Active 2024 ELIZABETH HOUSER, [facility] [address] [place], [address], [facility] 5 16:12:14 Notes:Some problems listed i n Documents: #[id number], #[id number], #[id number], #[id number] could not be added to this patient's chart. Please review these documents and add these problems to the patient's chart manually as needed. Problem Notes None recorded. Procedures Surgical History Date Name Laterality Status Provider Name and Address Organization Details Recorded Time 06/06/20 25 plain X-ray of chest completed XIMENA KEATING [facility] [place] 06/08/2025 14:47:06 04/28/20 25 plain [facility] of left [facility]/05/2025 15:02:31 04/22/20 25 plain X-ray of chest completed XIMENA KEATING [facility] 04/26/2025 19:04:48 04/07/20 25 plain X-ray of chest completed [facility] 04/08/2025 12:01:33 03/28/20 25 plain X-ray of chest completed [facility] 03/31/2025 11:10:09 03/21/20 25 plain X-ray of chest completed [facility] 03/31/2025 11:07:12 03/04/20 25 plain X-ray of chest completed [facility] 03/31/2025 11:09:47 12/27/[address] of chest completed [facility] 12/27/2024 14:20:38 12/26/19 25 plain X-ray of chest completed [facility] 12/27/2024 14:13:55 11/11/19 25 plain X-ray of cervical spine completed [facility] 11/11/2024 12:44:02 10/01/19 25 angiography completed [facility] 10/01/2024 18:38:18 09/27/19 25 plain X-ray of chest completed [facility] 09/27/2024 18:18:09 09/27/19 25 echocardiography completed [facility] 10/01/2024 18:33:00 09/22/19 25 ultrasonography of right breast completed [facility] 09/21/2024 13:39:24 09/22/19 25 mammography completed [facility] L[facility]. 09/21/2024 13:40:36 09/11/[address] of abdomen completed [facility] 09/13/2024 14:56:32 09/10/19 25 angiography of coronary artery completed [facility] 09/13/2024 14:50:21 09/09/19 25 echocardiography completed [facility] 09/13/2024 14:54:55 09/08/19 25 plain X-ray of chest completed [facility] 09/13/2024 14:57:51 08/24/[address] of chest completed [facility] 08/24/2024 12:28:02 04/28/20 24 plain X-ray of chest completed [facility] 04/30/2024 11:08:42 03/31/20 24 plain X-ray of chest completed [facility] 04/01/2024 14:05:05 03/27/20 24 imaging guided percutaneous transluminal angioplasty of coronary artery with contrast completed [facility] 10/05/2024 10:23:19 02/28/20 24 radiographic procedure on chest and/or abdomen completed [facility] 03/04/2024 15:02:31 02/28/[address] of abdomen completed [facility] 03/04/2024 15:03:26 01/19/20 24 diagnostic radiography of abdomen completed [facility] 01/21/2024 17:26:25 01/06/20 24 plain X-ray of chest completed [facility] 01/07/2024 15:42:42 12/27/19 24 plain X-ray of chest completed [facility] 12/29/2023 23:23:06 12/27/19 [address] of chest, abdomen and pelvis completed [facility] 12/29/2023 23:32:58 12/24/19 24 plain X-ray of chest completed [facility] 12/29/2023 23:56:29 12/20/[address] of chest completed [facility] 12/21/2023 12:33:52 12/20/19 24 plain X-ray of chest completed [facility] 12/21/2023 12:34:44 12/09/19 24 plain X-ray of chest completed [facility] 12/12/2023 10:16:37 12/05/19 24 plain X-ray of chest completed [facility] 12/06/2023 13:24:46 11/28/19 24 cardiac catheterization completed [facility] 12/06/2023 13:11:07 11/28/19 24 imaging guided percutaneous transluminal angioplasty of coronary artery with contrast completed [facility] 10/05/2024 10:22:55 11/27/19 24 plain X-ray of chest completed [facility] 11/28/2023 10:19:35 10/24/19 24 imaging guided percutaneous transluminal angioplasty of coronary artery with contrast completed [facility] 10/05/2024 10:22:32 10/16/19 24 imaging guided percutaneous transluminal angioplasty of coronary artery with contrast completed [facility] 10/05/2024 10:22:12 10/07/19 24 plain X-ray of chest completed XIMENA RISHABH [facility], [place] 10/08/2023 17:52:40 09/20/19 24 echocardiography completed XIMENAMAHI KEATING [facility], [place] 09/26/2023 12:48:56 lobectomy of lung completed XIMENA KEATING [facility], [place] 10/10/2023 12:32:47 amputation completed XIMENA KEATING [facility], [place] 08/24/2024 12:24:04 cholecystectomy completed XIMENAMAHI KEATING [facility], [place] 09/13/2024 14:49:22 Imaging Results None recorded. Procedure Notes None recorded. Medical Equipment None Reported. Allergies Allergen ID Allergen Name Allergen Category Reaction Reaction Severity Criticality Documentation Date Start Date Code Code System Note Provider Name and Address Organization Details Recorded Time 73989 acetamino phen medicatio n abdominal pain moderate low 01/19/20232021 161 RxNorm GI upset /into leran ce Anh coles [facility], LJacob[facility]obo 4 07:57:42 36494 acetamino phen medicatio n Not available Not available Not available 02/21/20242023 161 RxNorm ELIZABETH HOUSER, [address], [address] [place] [address], LJacoboLJacoboCJacobo 5 15:59:31 91033 ranolazin e medicatio n Not available Not available Not available 04/14/2025 24098 RxNorm Hallu whitneyat [facility] 5 11:33:58 Medications Name Sig Start [...] her to decrease to 100mg TID followin [facility], 02/27 and 02/28 Not Available Not Available [...] times per day 10/09 completed VO CH/jl; 32449; Recorded 05/14/20 19 10:02AM by Leydi Jessica [...] Updated DateTime 5 152.4 cm 26.8 kg/m2 57059.1 5 g 97 % 72 /min 18 /min 98 [degF] 120/70 mm[Hg] BRANDON RIVERA [facility] 5 12:37:22 Date Recorded Body height Body mass index (BMI) Body weight Oxygen saturation Heart rate Respiratory rate Systolic And Diastolic Provider Name and Address Organization Details Last Updated DateTime 5 152.4 cm 27.7 kg/m2 66890.1 2 g 98 % 78 /min 18 /min 158/82 mm[Hg] XIMENA [facility] 5 11:21:53 Date Recorded Body height Body mass index (BMI) Body weight Oxygen saturation Heart rate Respiratory rate Systolic And Diastolic Systolic And Diastolic Provider Name and Address Organization Details Last Updated DateTime 5 152.4 cm 27.7 kg/m2 09599.1 2 g 99 % 88 /min 18 /min 166/108 mm[Hg] 158/98 mm[Hg] XIMENA [facility] 5 11:38:18 Date Recorded Body height Body mass index (BMI) Body weight Oxygen saturation Heart rate Respiratory rate Systolic And Diastolic Provider Name and Address Organization Details Last Updated DateTime 5 152.4 cm 27.7 kg/m2 85552.1 2 g 98 % 80 /min 18 /min 136/80 mm[Hg] XIMENA RISHABH [facility]obo 5 15:40:44 Date Recorded Body height Body mass index (BMI) Body weight Oxygen saturation Heart rate Respiratory rate Systolic And Diastolic Systolic And Diastolic Provider Name and Address Organization Details Last Updated DateTime 5 152.4 cm 27.3 kg/m2 35287.9 3 g 97 % 88 /min 20 /min 174/100 mm[Hg] 170/90 mm[Hg] XIMENA RISHABH [facility] 5 15:22:55 Social History Question Answer Notes LastModified by Organizat ion Details LastModified Time Tobacco Smoking Status Former Smoker Quit 07/2023 XIMENA RISHABH [facility] 12/24/2023 12:30:16 What Type Of Diet Are You Following? REGULAR Information not available 12/24/2023 Which Illicit Or Recreational Drugs Have You Used? Smokes Meth [email or web address] Information not available 10/10/2023 When Did You Quit Smoking? 1-5yearssin celastcigar ette Information not available 12/24/2023 What Was The Date Of Your Most Recent Tobacco Screening? 12/24/2023 Information not available 12/24/2023 What Is Your Current Pack Years? 20-29packye ars Information not available 12/24/2023 What Is Your Relationship Status? Single [email or web address] Information not available 12/24/2023 At What Age [...] is your level of alcohol consumption? None [email or web address] Information not available 10/10/2023 Are you currently employed? No disabled [email or web address] Information not available 10/10/2023 Are you able to walk independently without assistance or assistive devices? YESASSIST [email or web address] Information not available 10/10/2023 Are you able [...] Time Mother Myocardial infarction In her 50's [email or web address] Not available 12/29/2023 23:44:26 Mother Rheumatoid arthritis [email or web address] Not available 12/28 23:44:44 Brother Acute lymphoid leukemia [email or web address] Not available 10/18 18:24:23 Medical History Condition [...] pneumococcal polysaccharide PPV23 8 completed SUZANNE HEATON [address] [place] [address], [phone], [facility] 12/24/2023 12:51:09 Past Encounters Encounter ID Performer Location Encounter Start Date Encounter Closed Date Diagnosis/Indication Diagnosis SNOMED-CT Code Diagnosis ICD10 Code Diagnosis IMO Codes Diagnosis Note [id number] SUZANNE HEATON [facility] ([facility]) [address] [place] [id number] 10/10/2023 11:29:12 10/10/2023 13:24:32 Uncontrolled type 1 diabetes mellitus 804502240 E10.[address] Ortega. End stage renal failure on dialysis 235268584 Z99.2 MWF dialysis. Multi vess el coronary artery disease 445895115 I25.10 Following with cardiology in [facility]. Essential hypertension 77879552 I10 Coronary arteriosclerosis 09817786 I25.10 Follows with cardiology in [facility]. [id number] Matthew Packer DO [facility] ([facility]) [address] [place] [id number] 12/02/2023 12:01:39 12/02/2023 13:56:02 Dental abscess 469665728 K04.7 Will start patient on lower dose amoxicilli n due to her hemodialys is status. Counseled patient that it is imperative that she see and be evaluated by a dentist in the next 2 to 4 weeks. [id number] SUZANNE HEATON [facility] ([facility]) [address] [place] [id number] 12/24/2023 11:37:48 12/24/2023 14:35:44 Mixed anxiety and depressive disorder 188535024 F41.8 Essential hypertension 50375576 I10 Starting Nifedipine today. Type 1 mainor betes mellitus 80184598 E10.[address] Ortega. Pain in bi lateral legs 1287603549 8735951 M79.604 M79.605 Patient reports she took some of her mom's in the past and it was helpful. End stage renal failure on dialysis 457999744 Z99.2 MWF dialysis. [id number] SUZANNE HEATON [facility] ([facility]) [address] [place] [id number] 01/07/2024 15:11:38 01/07/2024 17:49:26 Edema 300361561 R60.9 Non-pittin g lower extremity. Chest pain 12596524 R07. 9 Recurrent. Following with cardiology . Blood pres sure outside reference range 29680370 Z01.31 Will half dose of nifedipine until she is seen with cardiology . [id number] SUZANNE HEATON [facility] ([facility]) [address] [place] [id number] 02/21/2024 11:42:22 02/21/2024 12:51:01 End-stage renal disease 41881264 N18.6 Continue dialysis. Essential hypertension 39941982 I10 Blood pressure good today. Continue current meds. Uncontroll ed type 1 diabetes mellitus 266562741 E10.65 Continue to follow with Dr. Ortega. Mixed anxi ety and depressive disorder 467687077 F41.8 [id number] ELIZABETH HOUSER [facility] ([facility]) [address] [place] [id number] 04/01/2024 13:47:35 04/01/2024 15:21:12 Essential hypertension 48271098 I10 Monitor at home. Follow-up with cardiology . Uncontroll ed type 1 diabetes mellitus 503294407 E10.65 Continue to follow with Dr. Ortega. [facility] 314534100 Z30.9 Has a Nexplanon in her left arm, has not been changed for 12 years per patient Chronic low back pain 27 [id number] M54.50 Would like to see about prescripti on for Tramadol. 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 Congestive heart failure 36672026 I50.9 Follows with Cardiology . Chronic ob structive pulmonary disease 35329381 J44.9 Uses Breo. Secondary hyperaldosteronism 61596451 E26.1 Currently on dialysis. Angina pectoris 95595876 0 I20.9 Follows with cardiology , has nitrostat, recent stent. Amputated toe 084291275 Z89.429 Follows with podiatry. Chronic re current major depressive disorder 9038159 F33.1 Continue Lexapro. [id number] SUZANNE HEATON [facility] ([facility]) [address] [place] [address] 72419-038 5 05/01/2024 11:41:02 05/01/2024 13:20:39 Chronic chest pain 6090204344 38675 R07.9 Encouraged her mother to contact cardiology for follow-up. Essential hypertension 07280081 I10 Monitor at home. Restart Coreg. Abnormal vision 8244881 H54.7 [id number] SUZANNE HEATON [facility] ([facility]) [address] [place] [address] 27368-256 5 07/01/2024 13:56:52 07/01/2024 15:11:16 Essential hypertension 91217985 I10 Blood pressure this am was 125/80. Type 1 mainor betes mellitus 77153846 E10.[address] Ortega. Mixed anxi ety and depressive disorder 851408545 F41.8 Swelling of lower leg 44 6934114 R22.40 Hypoxemic respiratory failure 7530339234 6503490 J96.91 Uses oxygen at home as needed. 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 Depressive disorder 3548 9007 F33.1 Continue escitalopr am. 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 Congestive heart failure 96232710 I50.9 I50.30 Follows with Cardiology . Chronic ki dney disease stage 5 539197727 N18.5 Z99.2 Currently on dialysis. Amputated toe 154377984 Z89.429 Follows with podiatry. Low back pain 598583955 M54.50 Gabapentin . Hypertensi ve heart and renal disease with (congestive) heart failure 735804740 I13.2 Follows with Cardiology . Chronic ob structive pulmonary disease 89497399 J44.9 Uses Breo. Chronic ki dney disease due to type 2 diabetes mellitus 6853918251 08 N18.6 Currently on dialysis. [id number] SUZANNE HEATON [facility] ([facility]) [address] [place] [address] 28659-498 5 09/16/2024 09:15:48 09/16/2024 11:21:40 Coronary arteriosclerosis 71484205 I25.10 Recent stent placement. Anemia 012716310 D64.9 Acute supp urative otitis media without spontaneous rupture of ear drum 80269731 H66.001 Pain in bi lateral legs 1882035760 1534848 M79.604 M79.605 She has been taking 100mg three times daily but feels like it needs to be increased. [id number] SUZANNE HEATON [facility] ([facility]) [address] [place] [address] 55688-833 5 10/05/2024 10:02:53 10/05/2024 11:11:59 Coronary atherosclerosis 598452210 I25.10 She has 8 stents now. Mixed anxi ety and depressive disorder 028443747 F41.8 She has been having vivid dreams lately revolving around her brother who recently as well as her daughter who . Hospital i npatient stay within past 30 days 4030232216 106 Z76.89 [id number] ELIZABETH HOUSER [facility] ([facility]) [address] [place] [address] 83394-230 5 11/27/2024 09:57:25 11/27/2024 10:57:38 Essential hypertension 10080711 I10 Blood pressure this am was 179/112 at home, in office is 150/80. Afternoon readings have been good. Type 1 mainor betes mellitus 89155834 E10.[address] Ortega. Pain in bi lateral legs 6562065425 1242168 M79.604 M79.605 Anxiety 22050047 F41.8 5381657 Unable to lay still for MRI. Will send in clonazepam to take prior to procedure. [id number] ELIZABETH HOUSER CLINICAL ADVISOR [facility] ([facility]) [address] [place] [address] 18763-524 5 01/06/2025 11:45:44 01/06/2025 13:58:55 Chronic chest pain 7083706712 98243 R07.9 G89.29 958326 Chronic ki dney disease stage 5 523752436 N18.5 Z99.2 Currently on dialysis. Coronary arteriosclerosis 54143075 I25.10 Recent stent placement. Follow-up with cardiology next week. Will discuss chest pain with them as well. [id number] EILZABETH HOUSER CLINICAL ADVISOR [facility] ([facility]) [address] [place] [address] 18953-456 5 03/03/2025 12:06:42 03/03/2025 14:00:46 Neuropathy due to diabetes mellitus 542607236 E11.40 Decrease gabapentin to 100mg three times daily. Chronic renal failure 90 431489 N18.5 45986695 Dialysis. Hyperkalemia 29559495 E8 7.5 9805 Labs checked yesterday at Dialysis. Atypical chest pain 1025 67766 R07.89 001818 Recurrent. Following with cardiology . Recently started Isosorbide . History of abnormal cervical Papanicolaou smear 915783776 Z87.42 8355363 [id number] SUZANNE HEATON [facility] ([facility]) [address] [place] [address] 47636-222 5 03/31/2025 10:56:17 03/31/2025 12:04:26 Chronic chest pain 0986713695 53284 R07.9 G89.29 894979 Spasm 09956588 M62.838 Pain in bi lateral legs 1676013216 1978883 M79.604 M79.605 Site-speci fic infective disorders of skin 411073345 L08.9 18670 right index finger Chronic pain syndrome 37 9763531 G89.4 93265 Gabapentin . [id number] [facility] [address] [place] [address] 34465-483 5 04/14/2025 11:22:24 04/14/2025 14:24:51 Chronic chest pain 9057682041 44549 R07.9 G89.29 120513 Essential hypertension 67199462 I10 11687 Took her blood pressure medication about an hour ago. Pressure at home has been pretty good. Type 1 mainor betes mellitus 25770272 E10.[address] Ortega. Will schedule pump training with patient on a [facility]. Will have flight deck officer set up a time where she can use an exam room here. [id number] SUZANNE HEATON [facility] ([facility]) [address] [place] [address] 84607-206 5 05/05/2025 14:52:32 05/05/2025 16:30:15 Pain of knee region 2982014322 M25.569 Chest pain 18616151 R07. 9 865006 Recurrent. Following with cardiology . Recently started colchicine daily and it has been helpful. Chronic ki dney disease stage 5 663844568 N18.5 Z99.2 Currently on dialysis. Generalize d anxiety disorder 11740825 F41.1 41230 Unable to lay still for MRI. Will send in clonazepam to take prior to procedure. [id number] SUZANNE HEATON [facility] ([facility]) [address] [place] [address] 06/09/2025 15:06:12 06/09/2025 16:23:26 Essential hypertension 59097644 I10 Blood pressure elevated. She has been bottoming out at dialysis. Type 1 mainor betes mellitus 24810176 E10.22 Planning on getting an insulin pump tomorrow. Spasm 71605859 M62.838 Generalized edema 004131 008 R60.1 76666 Chest wall pain 73371952 6 R07.89 50989 Recurrent. Following with cardiology . Recently started Isosorbide . Cellulitis of right index finger 5873417633 7100 L03.011 49120858 Continue antibiotic s. Health Concerns Section Related Observation LastModified by Organization Detai ls LastModified Time None Recorded Concern Status LastModified by Organization Details LastModified Time None Recorded Advance Directives Directive None Recorded Payers Insurance Date Sequence Insurance Name Policy Number Policy Varela Covered Member ID Varela Member ID Guarantor Name 06/06/2025 [place] - [facility] (MEDICARE) Donita Aguilar [id number] Donita Aguilar 06/06/2025 [place] [facility] Donita Aguilar [id number] Donita Aguilar 06/06/2025 2 [place] Donita Aguilar [id number] Donita Aguilar 06/06/2025 1 [place] Donita Aguilar [id number] Donita Aguilar 12/07/2024 1 [facility] ([place] - [place]) [facility] Donita Aguilar [id number] Donita Aguilar Notes Date Note Type Note [...] gabapentin lowered back to 100mg. ELIZABETH HOUSER, [address], [address], [facility] 03/03/2025 13:06:19 5 text/htm l Angina/Chest PainReported by PatientHPIFor quality, patient reportsheaviness. For context, patient reportsat rest. For severity, patient reportsmoderate. For onset/timing, patient reportshas noted for yearsandintermittent. For alleviating factors, patient reportsnitroglycerinandrest. ELIZABETH HOUSER [address], [address], [facility] 03/31/2025 17:08:26 5 text/htm l DyspneaReported by PatientIFor quality, patient reportssqueezing,tightness,p ressure,can't catch breath,breathlessness,inabil ity to take a deep breath, andhurts to breathe. For associated symptoms, patient reportsfever,chills,weakness ,hoarseness, anddecrease in exercise capacity. For severity, patient reportsmoderateandlimits activity. For duration, patient reportsfor 2 weeks. For onset/timing, patient reportswith exertion. For pulmonary disease history, patient reportshistory of pulmonary disease. ELIZABETH HOUSER, [address], [address], [facility] 04/14/2025 14:09:54 5 text/htm l Generalized Anxiety DisorderReported by Patient Joint PainReported by PatientHPIFor quality, patient reportsdull. For location, patient reportsleft knee. For severity, patient reportsno change. For duration, patient reportspresent <1 month. For timing, patient reportsconstant. ELIZABETH HOUSER, [facility] [address] [place], [address], [facility] 05/06/2025 10:11:39 5 text/htm l Hypertension IM/FMReported by PatientHPIFor severity, patient reportsstage 2 (>140/>90 mmhg). For associated symptoms, patient reportschest pain(chronic chest pain). For quality, patient reportshere for check-up. For duration, patient reportshtn present for ___ years. For alleviating factors, patient reportsmedication. For risk factors, patient reportsmyocardial infarction,end-stage renal disease, anddiabetes. ELIZABETH HOUSER, [facility] [address] [place], [address], [facility] 06/09/2025 16:15:09 OBGyn Episode No OBEpisode recorded.
--- OUTSIDE RECORDS SUMMARY | 2025-06-21 08:02 | XMS_ITS | Clinical Summary ---
Author Organization [facility] Address [address] [facility] Attn: [place] [address] Care Team Providers Care Water Manager Name Role Phone Shravan Jones DO [...] subcutaneous injection. 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 [facility] [address] [place] [address] Kellee Garcia HAYDEE Nick [address] 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 Device Identifier Shelf Expiration Date Model / Serial / Lot Max dailym Flour [id number] - [id number] Implanted:Qty : 2 on 12/17/2016 by Deandre Alan MD Biological Left: Lung CR BARD[employer] 09/19/2019 [id number] / / [id number] Cath Dialysis Glidepath 14.5fr 24cm Std [id number] - [id number] Implanted:Qty : 1 on 03/18/2024 by Asif Mcclellan MD at [facility] Catheter Right: Chest BARD ANGEL VASC 09/21/2025 [id number] / / [id number] Clip Ligating Horizon Red 169260 - Csc - [id number] Implanted:Qty : 1 on 08/10/2024 by Chato Fitch MD at [facility] Clip Left: Arm TELE[employer] INC [id number] 05/16/2029 053100 / / [id number] Clip Ligating Horizon Med Ti 820882 - Csc - [id number] Implanted:Qty : 1 on 08/10/2024 by Chato Fitch MD at [facility] Clip Left: Arm TELEFLEX- WECK CLOSURE SYS [id number] 03/31/2029 [id number] / / [id number] 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 Ligaclip Sml Mcs20 - [id number] Implanted:Qty : 1 on 08/10/2024 by Chato Fitch MD at [facility] Clip Left: Arm J[employer]J- [employer] [id number] 03/23/2029 MCS20 / / [id number] Closure Perclose Prostyle Sut Mediate 69575-97 - [id number] Implanted:Qty : 1 on 09/24/2023 by Janell Beauchamp MD at [facility] Closure Device N/A: Groin LOVE- VASC DEVICE [id number] 06/23/2025 45748-55 / / [id number] Closure Perclose Prostyle Sut Mediate 54150-32 - [id number] Implanted:Qty : 1 on 10/24/2023 by Janell Beauchamp MD at [facility] Closure Device Right: Groin LOVE- VASC DEVICE [id number] 07/24/2025 48669-21 / / [id number] Oil Slc 8.5ml [id number] - Sgtin:[id number] Implanted:Qty : 1 on 06/23/2024 by Janey Carrera MD at [facility] Eye Right: Eye [employer] 12/21/2026 [id number] / GTIN:[id number] / [id number] Graft Vasc Propaten 4-1ftl17la I932249m - [id number] Implanted:Qty : 1 on 08/10/2024 by Chato Fitch MD at [facility] Graft Left: Arm [employer] [id number] 05/21/2027 [id number] / [id number] / Agent Hemostat Surgicel 2x3in 1952s - [id number] Implanted:Qty : 1 on 08/10/2024 by Chato Fitch MD at [facility] Hemostatic Left: Arm J&J- ETHICON INC [id number] 12/21/20281952S / / [id number] Hemostatic Surgiflo 8ml W/ Thrombin 2994 - [id number] Implanted:Qty : 1 on 08/10/2024 by Chato Fitch MD at [facility] Hemostatic Left: Arm J&J- [employer] INC [id number] 10/21/2025 2994 / / [id number] Agent Hemostat Surgicel 2x3in 1952s - [id number] Implanted:Qty : 1 on 08/10/2024 by Chato Fitch MD at [facility] Hemostatic Left: Arm J&J- [employer] INC [id number] 12/21/20281952S / / [id number] Stent Synergy Xd 3.0x48mm Evrlms Elut [id number] 0 - [id number] Implanted:Qty : 1 on 09/24/2023 by Janell Beauchamp MD at [facility] Stent N/A: Coronary [employer] [id number] 03/31/2025 [id number] 300 / / [id number] Stent Synergy Xd 2.21y98zt Evrlms Elut [id number] 0 - [id number] Implanted:Qty : 1 on 10/24/2023 by Janell Beauchamp MD at [facility] Stent Left: Coronary [employer] [id number] 08/19/2024 [id number] 220 / / [id number] Control Implant Funmi Procedures Procedure Name Priority Date/Time Associated Diagnosis Comments LIPID PANEL Routine 09/21/2023 6:47 PM CDT HEMOGLOBIN A1C Routine 09/21/2023 6:46 PM CDT from Last 3 Months or Most Recently Relevant to Health Maintenance Results * (ABNORMAL) LIPID PANEL (09/21/2023 6:47 PM CDT) [facility] CHOLESTEROL 96 <200 mg/dL 09/21/2023 10:29 PM CDT [facility] TRIGLYCERIDE 164(H) <150 mg/dL 09/21/2023 10:29 PM CDT [facility] HDL 36(L) 40 - 59 mg/dL 09/21/2023 10:29 PM CDT [facility] LDL CALCULATED 27 <100 mg/dL 09/21/2023 10:29 PM CDT [facility] NON-HDL CHOLESTEROL 60 <130 mg/dL 09/21/2023 10:29 PM CDT [facility] Blood Venipuncture / Unknown 09/21/2023 6:47 PM CDT 09/21/2023 7:10 PM CDT [facility] - 09/21/2023 10:29 PM CDT TOTAL CHOLESTEROL [...] Lacy MD CHEMISTRY ORDERABLES Final R esult [facility] CLIA # [id number] [address] [address] [place] [address] * (ABNORMAL) HEMOGLOBIN A1C (09/21/2023 6:46 PM CDT) HEMOGLOBIN A1C 6.8(H) <=5.6 % 09/23/2023 9:24 AM CDT [facility] EST. AVG GLUCOSE, A1C 148 mg/dL 09/23/2023 9:24 AM CDT [facility] Blood Venipuncture / Unknown 09/21/2023 6:46 PM CDT 09/21/2023 7:08 PM CDT Narrative [facility] - 09/23/2023 9:24 AM CDT HGB A1C INTERPRETATION NORMAL: <5.7% PRE-DIABETES: 5.7 - 6.4% DIABETES: 6.5% OR GREATER Luiz Lacy MD CHEMISTRY ORDERABLES Final R esult [facility] CLIA # [id number] [facility] [address] from Last 3 Months or Most Recently Relevant to Health Maintenance Insurance [place]ICAID [place] PART A AND B Advance Directives For more information, please contact: [phone] * Full Code (Latest Code Status on File) Date Activated Date Inactivated Comments 10/24/2023 2:34 PM 10/25/2023 11:47 AM * Full Code Date Activated Date Inactivated Comments 10/24/2023 9:13 AM 10/24/2023 2:34 PM * Full Code Date Activated Date Inactivated Comments 09/24/2023 3:14 PM 09/25/2023 9:51 PM * Full Code Date Activated Date Inactivated Comments 09/21/2023 5:50 PM 09/24/2023 3:14 PM Care Teams Water Manager Relationship Specialty Start Date End Date Shravan Jones DO PCP - General Family Practice 12/04/16
--- OUTSIDE RECORDS SUMMARY | 2025-06-21 08:02 | XMS_ITS | Continuity of Care Document ---
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 23:23:06 12/27/19 24 CT of chest, abdomen and pelvis completed [facility], L.L.CJacobo 12/29/2023 23:32:58 12/24/19 24 plain X-ray of chest completed [facility], LJacoboL.CJacobo 12/29/2023 23:56:29 12/20/[address] of chest completed [facility], L.L.CJacobo 12/21/2023 12:33:52 12/20/19 24 plain X-ray of chest completed [facility], L.L.CJacobo 12/21/2023 12:34:44 12/09/19 24 plain X-ray of chest completed [facility], L.L.C[facility]obo 12/12/2023 10:16:37 12/05/19 24 plain X-ray of chest completed [facility] 12/06/2023 13:24:46 11/28/19 24 cardiac catheterization completed [facility] 12/06/2023 13:11:07 11/28/19 24 imaging guided percutaneous transluminal angioplasty of coronary artery with contrast completed [facility], L.L.CJacobo 10/05/2024 10:22:55 11/27/19 24 plain X-ray of chest completed [facility] 11/28/2023 10:19:35 10/24/19 24 imaging guided percutaneous transluminal angioplasty of coronary artery with contrast completed [facility], L.L.CJacobo 10/05/2024 10:22:32 10/16/19 24 imaging guided percutaneous transluminal angioplasty of coronary artery with contrast [facility] 10/05/2024 10:22:12 10/07/19 24 plain X-ray of chest completed XIMENA RISHABH [facility], KaelynC[facility]obo 10/08/2023 17:52:40 09/20/19 24 echocardiography completed XIMENA RISHABH [facility], DonteLJacoboCJacobo 09/26/2023 12:48:56 lobectomy of lung completed XIMENAMAHI KEATING [facility], [place] 10/10/2023 12:32:47 amputation completed XIMENA KEATING [facility], KaelynCJacobo 08/24/2024 12:24:04 cholecystectomy completed XIMENA RISHABH [facility], KaelynCJacobo 09/13/2024 14:49:22 Imaging Results None recorded. Procedure Notes None recorded. Medical Equipment None Reported. Allergies Allergen ID Allergen Name Allergen Category Reaction Reaction Severity Criticality Documentation Date Start Date Code Code System Note Provider Name and Address Organization Details Recorded Time 05200 acetamino phen medicatio n abdominal pain moderate low 01/19/20232021 161 RxNorm GI upset /into leran ce Anh coles [facility], LJacoboLJacoboCJacobo 4 07:57:42 48240 acetamino phen medicatio n Not available Not available Not available 02/21/20242023 161 RxNorm NAJMA HOUSER, [facility] [address] [place], [address] , [facility], LJacoboLJacoboCJacobo 5 15:59:31 83935 ranolazin e medicatio n Not available Not available Not available 04/14/2025 05779 RxNorm [facility]at [facility] 5 11:33:58 Medications Name Sig [...] wanted her to decrease to 100mg T[facility] [place], 02/27 and 02/28 Not Available Not Available [...] l tartrate 25 mg tablet TAKE 1/2 (ONE-RAEGAN F) TABLET BY MOUTH TWICE DAILY 10/09 [...] times per day 10/09 completed VO CH/jl; 04376; Recorded 05/14/20 19 10:02AM by Leydi Jessica [...] Last Updated DateTime 152.4 cm 27.7 kg/m2 16938.1 2 g 99 % 88 /min 18 /min 166/108 mm[Hg] 158/98 mm[Hg] XIMENA KEATING [facility] 5 11:38:18 Social History Question Answer Notes LastModified by Organizat ion Details LastModified Time Tobacco Smoking Status Former Smoker Quit 07/2023 XIMENA KEATING [facility] 12/24/2023 12:30:16 What Type Of Diet Are You Following? REGULAR [email or web address] Information not available 12/24/2023 Which Illicit Or Recreational Drugs Have You Used? Smokes Meth [email or web address] Information not available 10/10/2023 When Did You Quit Smoking? 1-5yearssin celastcigar ette Information not available 12/24/2023 What Was The Date Of Your Most Recent Tobacco Screening? 12/24/2023 Information not available 12/24/2023 What Is Your Current Pack Years? 20-29packye ars Information not available 12/24/2023 What Is Your Relationship Status? Single [email or web address] Information not available 12/24/2023 At What Age [...] or recreational drugs? Yes Quit Meth 07/2023 [email or web address] Information not available 12/24/2023 Do you or have you ever used any other forms of tobacco or nicotine? No Information not available 12/24/2023 What is your level of alcohol consumption? None Information not available 10/10/2023 Are you currently employed? No disabled [email or web address] Information not available 10/10/2023 Are you able to walk independently without assistance or assistive devices? 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 Not available 10/18 18:24:23 Medical History Condition [...] polysaccharide PPV23 8 completed SUZANNE HEATON [address] [place], [address], [facility] 12/24/2023 12:51:09 Past Encounters Encounter ID Performer Location Encounter Start Date Encounter Closed Date Diagnosis/Indication Diagnosis SNOMED-CT Code Diagnosis ICD10 Code Diagnosis IMO Codes Diagnosis Note [id number] SUZANNE HEATON [facility] ([facility]) [address] [place] [address] 03/31/2025 10:56:17 03/31/2025 12:04:26 Chronic chest pain 0285864560 79077 R07.9 G89.29 112168 Spasm 29205659 M62.838 Pain in bi lateral legs 2204453317 1175492 M79.604 M79.605 Site-speci fic infective disorders of skin 148265294 L08.9 93270 right index finger Chronic pain syndrome 37 8002039 G89.4 05186 Gabapentin . [id number] SUZANNE HEATON [facility] ([facility]) [address] [place] [address] 04/14/2025 11:22:24 04/14/2025 14:24:51 Chronic chest pain 8739020760 89168 R07.9 G89.29 252871 Essential hypertension 26681108 I10 62765 Took her blood pressure medication about an hour ago. Pressure at home has been pretty good. Type 1 mainor betes mellitus 80063795 E10.[address] Ortega. Will schedule pump training with patient on a [facility]. Will have parking regulation enforcement officer set up a time where she can use an exam room here. Health Concerns Section Related Observation LastModified by Organization Detai ls LastModified Time None Recorded Concern Status LastModified by Organization Details LastModified Time None Recorded Payers Encounter Date Sequence Insurance Name Policy Number Policy Varela Covered Member ID Varela Member ID Guarantor Name 04/14/2025 1 [place] Donita Aguilar [id number] Donita Aguilar 04/14/2025 2 [place] Donita Hyman Lauren [id number] Donita Yenni Lauren Notes Date Note Type [...] patient reportshistory of pulmonary disease. NAJMA HOUSER, [facility] [address] [place], [address], [facility], Billie 04/14/2025 14:09:54 OBGyn Episode No OBEpisode recorded.
--- OUTSIDE RECORDS SUMMARY | 2025-06-21 08:03 | XMS_ITS | Continuity of Care Document ---
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 25 plain X-ray of chest completed [facility] 03/31/2025 11:10:09 03/21/20 25 plain X-ray of chest completed [facility] 03/31/2025 11:07:12 03/04/20 25 plain X-ray of chest completed [facility] 03/31/2025 11:09:47 12/27/[address] of chest completed [facility] 12/27/2024 14:20:38 12/26/19 25 plain X-ray of chest completed [facility] 12/27/2024 14:13:55 11/11/19 25 plain X-ray of cervical spine completed [facility] 11/11/2024 12:44:02 10/01/19 25 angiography completed [facility] 10/01/2024 18:38:18 09/27/19 25 plain X-ray of chest completed [facility] 09/27/2024 18:18:09 09/27/19 25 echocardiography completed [facility] 10/01/2024 18:33:00 09/22/19 25 ultrasonography of right breast completed [facility] 09/21/2024 13:39:24 09/22/19 25 mammography completed [facility]. 09/21/2024 13:40:36 09/11/[address] of abdomen completed [facility], LJacoboLJacoboCJacobo 09/13/2024 14:56:32 09/10/19 25 angiography of coronary artery completed [facility], KaelynCJacobo 09/13/2024 14:50:21 09/09/19 25 echocardiography completed [facility], KaelynCJacobo 09/13/2024 14:54:55 09/08/19 25 plain X-ray of chest completed [facility], KaelynCJacobo 09/13/2024 14:57:51 08/24/[address] of chest completed [facility], Billie 08/24/2024 12:28:02 04/28/20 24 plain X-ray of chest completed [facility], Billie 04/30/2024 11:08:42 03/31/20 24 plain X-ray of chest completed [facility], Billie 04/01/2024 14:05:05 03/27/20 24 imaging guided percutaneous transluminal angioplasty of coronary artery with contrast completed [facility], Billie 10/05/2024 10:23:19 02/28/20 24 radiographic procedure on chest and/or abdomen completed [facility], KaelynCJacobo 03/04/2024 15:02:31 02/28/[address] of abdomen completed [facility], DonteLJacoboCJacobo 03/04/2024 15:03:26 01/19/20 24 diagnostic radiography of abdomen completed [facility], Billie 01/21/2024 17:26:25 01/06/20 24 plain X-ray of chest completed [facility], KaelynCJacobo 01/07/2024 15:42:42 12/27/19 24 plain X-ray of chest completed [facility], Billie 12/29/2023 23:23:06 12/27/[address] of chest, abdomen and pelvis completed [facility], Billie 12/29/2023 23:32:58 12/24/19 24 plain X-ray of chest completed [facility], [place] 12/29/2023 23:56:29 12/20/[address] of chest completed [facility], Billie 12/21/2023 12:33:52 12/20/19 24 plain X-ray of chest completed [facility], [place]ie 12/21/2023 12:34:44 12/09/19 24 plain X-ray of chest completed [facility], [place]ie 12/12/2023 10:16:37 12/05/19 24 plain X-ray of chest completed [facility], Billie 12/06/2023 13:24:46 11/28/19 24 cardiac catheterization completed [facility], Billie 12/06/2023 13:11:07 11/28/19 24 imaging guided percutaneous transluminal angioplasty of coronary artery with contrast completed [facility], [place]ie 10/05/2024 10:22:55 11/27/19 24 plain X-ray of chest completed [facility], KaelynCJacobo 11/28/2023 10:19:35 10/24/19 24 imaging guided percutaneous transluminal angioplasty of coronary artery with contrast completed [facility], Billie 10/05/2024 10:22:32 10/16/19 24 imaging guided percutaneous transluminal angioplasty of coronary artery with contrast completed [facility], [place] 10/05/2024 10:22:12 10/07/19 24 plain X-ray of chest completed [facility] 10/08/2023 17:52:40 09/20/19 24 echocardiography completed [facility] KE[facility] L[facility].C[facility]obo 09/26/2023 12:48:56 lobectomy of lung completed [facility] KEATING [facility] L[facility].CJacobo 10/10/2023 12:32:47 amputation completed [facility]NA KEATING [facility] LJacoboLJacoboCJacobo 08/24/2024 12:24:04 cholecystectomy completed [facility] KEATING [facility] 09/13/2024 14:49:22 Imaging Results None recorded. Procedure Notes None recorded. Medical Equipment None Reported. Allergies Allergen ID Allergen Name Allergen Category Reaction Reaction Severity Criticality Documentation Date Start Date Code Code System Note Provider Name and Address Organization Details Recorded Time 52234 acetamino phen medicatio n abdominal pain moderate low 01/19/20232021 161 RxNorm GI upset /into leran ce Anh coles [facility] 4 07:57:42 85746 acetamino phen medicatio n Not available Not available Not available 02/21/20242023 161 RxNorm ELIZABETH HOUSER, [address], [address] , [facility] 5 15:59:31 10174 ranolazin e medicatio n Not available Not available Not available 04/14/2025 26056 RxNorm Hallu cinat [facility] 11:33:58 Medications Name [...] wanted her to decrease to 100mg TID [facility] [place] 02/28 Not Available Not Available [...] times per day 10/09 completed VO CH/jl; 17802; Recorded 05/14/20 19 10:02AM by Leydi Jessica [...] Last Updated DateTime 152.4 cm 27.7 kg/m2 20696.1 2 g 98 % 78 /min 18 /min 158/82 mm[Hg] [facility] KEATING [facility] 11:21:53 Social History Question Answer Notes LastModified by Organizat ion Details LastModified Time Tobacco Smoking Status Former Smoker Quit 07/2023 XIMENA KEATING [facility] 12/24/2023 12:30:16 What Type Of Diet Are You Following? REGULAR [email or web address] Information not available 12/24/2023 Which Illicit Or Recreational Drugs Have You Used? Smokes Meth [email or web address] Information not available 10/10/2023 When Did You Quit Smoking? 1-5yearssin celastcigar ette Information not available 12/24/2023 What Was The Date Of Your Most Recent Tobacco Screening? 12/24/2023 Information not available 12/24/2023 What Is Your Current Pack Years? 20-29packye ars Information not available 12/24/2023 What Is Your Relationship Status? Single [email or web address] Information not available 12/24/2023 At What Age [...] or recreational drugs? Yes Quit Meth 07/2023 [email or web address] Information not available 12/24/2023 Do you or have you ever used any other forms of tobacco or nicotine? No Information not available 12/24/2023 What is your level of alcohol consumption? None [email or web address] Information not available 10/10/2023 Are you currently employed? No disabled [email or web address] Information not available 10/10/2023 Are you able to walk independently without assistance or assistive devices? YESASSIST [email or web address] Information not available 10/10/2023 Are you able to care for yourself independently? No Mother is her caregiver. [email or web address] Information not available 10/10/2023 Do you or have you ever used any nicotine-free cigarettes, vape, or chewing tobacco? No Information not available 12/24/2023 Mental Status None recorded. Family History Relationship Description Onset Age of this Age Resolved Age Notes LastModified by Organization Details LastModified Time Mother Myocardial infarction In her 50's [email or web address] Not available 12/29/2023 23:44:26 Mother Rheumatoid arthritis [email or web address] Not available 12/28 23:44:44 Brother Acute lymphoid leukemia [email or web address] Not available 10/18 18:24:23 Medical History Condition [...] polysaccharide PPV23 8 completed ELIZABETH HOUSER, SUZANNE [address] [place], [address], [facility] 12:51:09 Past Encounters Encounter ID Performer Location Encounter Start Date Encounter Closed Date Diagnosis/Indication Diagnosis SNOMED-CT Code Diagnosis ICD10 Code Diagnosis IMO Codes Diagnosis Note [id number] SUZANNE HEATON [facility] ([facility] [address] [place] [address] 03/03/2025 12:06:42 03/03/2025 14:00:46 Neuropathy due to diabetes mellitus 032382207 E11.40 Decrease gabapentin to 100mg three times daily. Chronic renal failure 90 827590 N18.5 82828045 Dialysis. Hyperkalemia 58283511 E8 7.5 9805 Labs checked yesterday at Dialysis. Atypical chest pain 1025 23543 R07.89 [id number] Recurrent. Following with cardiology . Recently started Isosorbide . History of abnormal cervical Papanicolaou smear 935047740 Z87.42 0340685 [id number] SUZANNE HETAON [facility] ([facility]) [address] [place] [address] 03/31/2025 10:56:17 03/31/2025 12:04:26 Chronic chest pain 3442328283 10482 R07.9 G89.29 674558 Spasm 80059555 M62.838 Pain in bi lateral legs 9793135856 0206648 M79.604 M79.605 Site-speci fic infective disorders of skin 449045042 L08.9 86296 right index finger Chronic pain syndrome 37 9813068 G89.4 94866 Gabapentin . Health Concerns Section Related Observation LastModified by Organization Detai ls LastModified Time None Recorded Concern Status LastModified by Organization Details LastModified Time None Recorded Payers Encounter Date Sequence Insurance Name Policy Number Policy Varela Covered Member ID Varela Member ID Guarantor Name 03/31/2025 1 [place] Donita Aguilar [id number] Donita Aguilar 03/31/2025 2 [place] Donita Aguilar [id number] Donita Aguilar Notes Date Note Type Note Provider Name and Address Organization Details Recorded Time 5 text/html Angina/Chest PainReported by PatientHPIFor quality, patient reportsheaviness. For context, patient reportsat rest. For severity, patient reportsmoderate. For onset/timing, patient reportshas noted for yearsandintermittent. For alleviating factors, patient reportsnitroglycerinandre st. ELIZABETH HOUSER, [facility] [address] [place], [address], [facility] 03/31/2025 17:08:26 OBGyn Episode No OBEpisode recorded.
--- OUTSIDE RECORDS SUMMARY | 2025-06-21 08:03 | XMS_ITS | Encounter Summary ---
Author Organization [facility] Address [address] [place] [address] Care Team Providers Care Display Director Name Role Phone Shravan Jones DO Primary Care Provider Encounter Details Date Type Department Care Team (Late st Contact Info) Description 12/28/2016 Lab Requisition [facility] Laboratory Services [address] [place] [address] David Ortega MD [address] [place] [address] Social History Tobacco Use Types Packs/Day Years Used Date Smoking Tobacco: Every Day Cigarettes Comments:pt lethargic Comments Unknown Sex and Gender Information Value Date Recorded Sex Assigned at Not on file 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 Blood Collection / Unknown 12/28/2016 2:39 AM CDT 12/28/2016 5:01 AM CDT David Ortega MD CHEMISTRY ORDERABLES Final Res ult Performing Organization Address [facility] Co de Phone Number [facility] CLIA# [id number] [address] [place] [address] [id number] * MAGNESIUM LEVEL (12/28/2016 2:39 AM CDT) [facility] MAGNESIUM 1.6 1.6 - 2.6 mg/dL 12/28/2016 5:[address] [facility] Blood Collection / Unknown 12/28/2016 2:39 AM CDT 12/28/2016 5:[address] [facility] - 12/28/2016 5:42 AM CDT Due to Looping Machine Operator update, MG+ reference range has changed from 1.8 - 2.4 mg/dL to the new reference range of 1.6 - 2.6 mg/dL. This will have limited patient impact. David Ortega MD CHEMISTRY ORDERABLES Final Res ult Performing Organization Address [facility] Co de Phone Number [facility] CLIA# [id number] [address] [place] [address] * PROTIME-INR (12/28/2016 2:39 AM CDT) [facility] PROTIME 15.0 12.3 - 15.5 Seconds 12/28/2016 5:[address] [facility] INR 1.1 0.8 - 1.2 12/28/2016 5:[address] [facility] Blood Collection / Unknown 12/28/2016 2:39 AM CDT 12/28/2016 5:[address] [facility] - 12/28/2016 5:16 AM CDT Expected Values for INR: DVT/PE Goal INR 2.5; range 2.0 - 3.0 Valve Replacement Tissue Goal INR 2.5; range 2.0 - 3.0 Valve Replacement Mechanical Goal INR 3.0; range 2.5 - 3.5 POST-AK Goal INR 2.5; range 2.0 - 3.0 or Goal INR 3.0; range 2.5 - 3.5 Atrial Fibrillation Goal INR 2.5; range 2.0 - 3.0 Ischemic Stroke Goal INR 2.5; range 2.0 - 3.0 For additional information see Guidelines for Anticoagulation available from the pharmacy Wendy Vargas Pharm D. David Ortega MD HEMATOLOGY ORDERABLES Final Re sult [facility] CLIA# [id number] [address] [place] [address] * (ABNORMAL) PTT (12/28/2016 2:39 AM CDT) PTT 39.1(H) 24.8 - 38.8 seconds 12/28/2016 5:[address] [facility] Blood Collection / Unknown 12/28/2016 2:39 AM CDT 12/28/2016 5:[address] [facility] - 12/28/2016 5:16 AM CDT Therapeutic Range: Hi-level PE/DVT heparin protocol 80.1 - 95.0 sec Lo-level PE/DVT heparin protocol 70.1 - 85.0 sec Cardiac Heparin Protocol 70.1 - 100.0 sec David Ortega MD HEMATOLOGY ORDERABLES Final Re sult [facility] CLIA# [id number] [facility] [place] [address] * (ABNORMAL) CBC WITH DIFFERENTIAL (12/28/2016 2:39 AM CDT) Pathologist [facility] WBC 11.0 4.5 - 11.0 K/uL 12/28/2016 5:[address] [facility] RBC 3.80(L) 4.20 - 5.40 M/uL 12/28/2016 5:[address] [facility] HEMOGLOBIN 9.3(L) 12.0 - 16.0 g/dL 12/28/2016 5:[facility] HEMATOCRIT 30.6(L) 36.0 - 46.0 % 12/28/2016 5:[address] [facility] MCV 80.5(L) 84.0 - 103.0 fL 12/28/2016 5:[address] [facility] MCH 24.5(L) 27.0 - 34.0 pg 12/28/2016 5:[address] [facility] MCHC 30.4 30.0 - 35.0 g/dL 12/28/2016 5:[address] [facility] RDW 17.3(H) 11.0 - 14.5 % 12/28/2016 5:[address] [facility] RDW-STDEV 51.8 37.0 - 54.0 fL 12/28/2016 5:[address] [facility] PLATELETS 757(H) 140 - 440 K/uL 12/28/2016 5:[address] [facility] MPV 8.9 8.9 - 12.8 fL 12/28/2016 5:[address] [facility] NEUTROPHILS 65 42 - 75 % 12/28/2016 5:[address] [facility] LYMPHOCYTES 19(L) 24 - 44 % 12/28/2016 5:[address] [facility] MONOCYTES 10 2 - 10 % 12/28/2016 5:[address] [facility] EOSINOPHILS 5 0 - 7 % 12/28/2016 5:[address] [facility] BASOPHILS 1 0 - 1 % 12/28/2016 5:[address] [facility] IMMATURE GRANULOCYTES 1 0 - 2 % 12/28/2016 5:[address] [facility] NEUTROPHIL ABSOLUTE 7.19 2.00 - 8.00 K/uL 12/28/2016 5:[address] [facility] LYMPHOCYTE ABSOLUTE 2.04 1.20 - 4.00 K/uL 12/28/2016 5:[address] [facility] MONOCYTE ABSOLUTE 1.06(H) 0.10 - 0.60 K/uL 12/28/2016 5:[address] [facility] EOSINOPHIL ABSOLUTE 0.60 0.00 - 0.70 K/uL 12/28/2016 5:[address] [facility] BASOPHILS ABSOLUTE 0.07 0.00 - 0.20 K/uL 12/28/2016 5:[address] [facility] IMMATURE GRANULOCYTES ABSOLUTE 0.07 0.00 - 0.10 K/uL 12/28/2016 5:[address] [facility] Blood Collection / Unknown 12/28/2016 2:39 AM CDT 12/28/2016 5:01 AM CDT us David Ortega MD HEMATOLOGY ORDERABLES Final Re sult [facility] CLIA# [id number] [address] [place] [address] * (ABNORMAL) COMPREHENSIVE METABOLIC PANEL (12/28/2016 2:39 AM CDT) SODIUM 143 136 - 145 mmol/L 12/28/2016 5:[address] [facility] POTASSIUM 3.3(L) 3.5 - 5.1 mmol/L 12/28/2016 5:47 AM [facility] CHLORIDE 103 98 - 107 mmol/L 12/28/2016 5:47 AM [facility] CO2 29 21 - 32 mmol/L 12/28/2016 5:47 AM [facility] CALCIUM 8.9 8.4 - 10.1 mg/dL 12/28/2016 5:47 AM [facility] BUN 13 7 - 17 mg/dL 12/28/2016 5:47 AM [facility] CREATININE 0.70 0.55 - 1.02 mg/dL 12/28/2016 5:47 AM [facility] GLUCOSE 46(LL) 74 - 106 mg/dL 12/28/2016 5:47 AM [facility] TOTAL PROTEIN 8.2 6.4 - 8.2 g/dL 12/28/2016 5:47 AM [facility] ALBUMIN 1.8(L) 3.4 - 5.0 g/dL 12/28/2016 5:47 AM [facility] BILIRUBIN TOTAL 0.2 0.2 - 1.0 mg/dL 12/28/2016 5:47 AM [facility] ALKALINE PHOSPHATASE 93 25 - 100 U/L 12/28/2016 5:47 AM [facility] AST 18 15 - 37 U/L 12/28/2016 5:47 AM [facility] ALT 18 13 - 61 U/L 12/28/2016 5:47 AM [facility] GFR >60 >=60 mL/min/1.7 3 sq meter 12/28/2016 5:47 AM [facility] Comment: eGFR has not been validated [...] 3 sq meter 12/28/2016 5:47 AM CDT [facility] ANION GAP 11 4 - 30 mmol/L 12/28/2016 5:47 AM CDT [facility] Blood Collection / Unknown 12/28/2016 2:39 AM CDT 12/28/2016 5:01 AM CDT us David Ortega MD CHEMISTRY ORDERABLES Final Res ult [facility] CLIA# [id number] [address] [place] [address] documented in this encounter Visit Diagnoses Not on filedocumented in this encounter Care Teams Display Director Relationship Specialty Start Date End Date Shravan Jones DO PCP - General Family Practice 12/04/16 documented as of this encounter
--- OUTSIDE RECORDS SUMMARY | 2025-06-21 08:03 | XMS_ITS | Clinical Summary ---
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 Gender Identity Not on file Sexual [...] Required) Completed Medical Devices Implanted Type Area Utility Mechanic Device Identifier Shelf Expiration Date Model / Serial / Lot Max dailym Flour [id number] - [id number] Implanted:Qty: 2 on 12/17/2016 by Deandre Alan MD at [facility] Biological Left: Lung [employer] 09/19/2019 [id number] / / [id number] Control Implant Funmi Procedures Procedure Name Priority Date/Time Associated Diagnosis Comments HEMOGLOBIN A1C Routine 01/09/2017 2:52 AM CDT from Last 3 Months or Most Recently Relevant to Health Maintenance Results * (ABNORMAL) HEMOGLOBIN A1C (01/09/2017 2:52 AM CDT) HEMOGLOBIN A1C 8.9(H) 4.0 - 6.0 % 01/09/2017 1:31 PM CDT [facility] EST. AVG GLUCOSE, A1C 209 mg/dL 01/09/2017 1:31 PM CDT [facility] Blood 01/09/2017 2:52 AM CDT 01/09/2017 6:53 AM CDT Narrative [facility] - 01/09/2017 1:31 PM CDT Test performed on SevconII instrumentation using HPLC methodology us Izabela Diamond MD CHEMISTRY ORDERABLES Final Res ult [facility] CLIA# [id number] [address] [place] [address] from Last 3 Months or Most Recently Relevant to Health [place] [address] [facility] MEDICAID Advance Directives For more information, please contact: [phone] * Full Code (Latest Code Status on File) Date Activated Date Inactivated Comments 12/17/2016 1:05 PM 12/27/2016 11:32 PM Care Teams Chassis Mechanic Relationship Specialty Start Date End Date Shravan Jones DO PCP - General Family Practice 12/04/16
--- OUTSIDE RECORDS SUMMARY | 2025-06-21 08:03 | XMS_ITS | Encounter Summary ---
Author Organization [facility] Address [address] [place] [address] Care Team Providers Care Hot Braider Name Role Phone Shravan Jones DO Primary Care Provider [phone] Reason for Visit * Reason Onset Date Comments Appointment Notification 11/05/2023 Encounter Details Date Type Department Care Team (Late st Contact Info) Description 11/05/2023 Telephone [facility] [address] [place] [address] Janell Beauchamp MD [address] [place] [address] Appointment Notification Social History Tobacco Use Types Packs/Day Years Used Date Smoking Tobacco: Every Day Comments:Quit smoking: pt le thargic Social Connections Answer Date Recorded In a typical week, how many times do you talk on the telephone with family, friends, or neighbors? Never 09/22/19 24 Frequency of Social Gatherings with Friends and Family Not on file 09/22/2023 Attends [employer] Services Not on file 09/21 Active Member [...] on file Legal Sex Female 3:34 PM MANUFACTURING QUALITY ENGINEER Gender Identity Not on file Sexual Orientation Not on file documented as of this encounter Miscellaneous Notes * Telephone Encounter - Patrica Barney - 11/05/2023 12:07 PM CDT Janell (Provider) MESSAGE Pt needs to cancel appt on 11/07 and would like to resched. For 11/25 as she has other appts in town that day. Please call pt to reschedule. [facility] Consulting Engineer: Patrica Barney documented in this encounter Plan of Treatment Upcoming Encounters Date Type Department Care Team (Late st Contact Info) Description 08/18/2025 11:00 AM MANUFACTURING QUALITY ENGINEER Office Visit [facility] [address] [facility] [address] [place] [address] Kellee Garcia, HAYDEE [address] [facility] [address] [place] [address] documented as of this encounter Visit Diagnoses Not on filedocumented in this encounter Additional Health Concerns Infection Onset Date Last Indicated Resolved Time R/O C. diff 07/06/2024 07/06/2024 07/06/2024 8:35 AM MANUFACTURING QUALITY ENGINEER documented as of this encounter Care Teams Hot Braider Relationship Specialty Start Date End Date Shravan Jones DO PCP - General Family Practice 12/04/16 documented as of this encounter
--- OUTSIDE RECORDS SUMMARY | 2025-06-21 08:03 | XMS_ITS | Encounter Summary ---
Author Organization [facility] Address [address] [place] [address] Care Team Providers Care Health And Safety Advisor Name Role Phone Shravan Jones DO Primary Care Provider [phone] Encounter Details Date Type Department Care Team (Late st Contact Info) Description 01/02/2017 Lab Requisition [facility] Laboratory Services [address] [place] [address] [place] [address] Izabela Diamond MD NO ADDRESS ON FILE Social History Tobacco Use Types Packs/Day Years Used Date Smoking Tobacco: Every Day Cigarettes Comments:pt lethargic Comments Unknown Sex and Gender Information Value Date Recorded Sex Assigned at Not on file 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 POTASSIUM 4.3 3.5 - 5.1 mmol/L 01/02/2017 6:07 AM CDT [facility] CHLORIDE 101 98 - 107 mmol/L 01/02/2017 6:07 AM T [facility] CO2 27 21 - 32 mmol/L 01/02/2017 6:07 AM T [facility] CALCIUM 9.7 8.4 - 10.1 mg/dL 01/02/2017 6:07 AM T [facility] BUN 16 7 - 17 mg/dL 01/02/2017 6:07 AM [facility] CREATININE 0.87 0.55 - 1.02 mg/dL 01/02/2017 6:07 AM T [facility] GLUCOSE 122(H) 74 - 106 mg/dL 01/02/2017 6:07 AM [facility] GFR >60 >=60 mL/min/1.7 3 sq meter 01/02/2017 6:07 AM T [facility] Comment: eGFR has not been validated for [...] 3 sq meter 01/02/2017 6:07 AM CDT [facility] ANION GAP 10 4 - 30 mmol/L 01/02/2017 6:07 AM T [facility] Blood 01/02/2017 3:00 AM CDT 01/02/2017 5:35 AM CDT us Izabela Diamond MD CHEMISTRY ORDERABLES Final Res ult [facility] CLIA# [id number] [address] [place] [address] * (ABNORMAL) CBC WITH DIFFERENTIAL (01/02/2017 3:00 AM CDT) [facility] WBC 10.4 4.5 - 11.0 K/uL 01/02/2017 5:44 AM [facility] RBC 4.30 4.20 - 5.40 M/uL 01/02/2017 5:44 AM [facility] HEMOGLOBIN 10.4(L) 12.0 - 16.0 g/dL 01/02/2017 5:44 AM [facility] HEMATOCRIT 34.5(L) 36.0 - 46.0 % 01/02/2017 5:44 AM [facility] MCV 80.2(L) 84.0 - 103.0 fL 01/02/2017 5:44 AM [facility] MCH 24.2(L) 27.0 - 34.0 pg 01/02/2017 5:44 AM [facility] MCHC 30.1 30.0 - 35.0 g/dL 01/02/2017 5:44 AM [facility] RDW 17.4(H) 11.0 - 14.5 % 01/02/2017 5:44 AM [facility] RDW-STDEV 51.1 37.0 - 54.0 fL 01/02/2017 5:44 AM [facility] PLATELETS 764(H) 140 - 440 K/uL 01/02/2017 5:44 AM [facility] MPV 9.2 8.9 - 12.8 fL 01/02/2017 5:44 AM [facility] NEUTROPHILS 56 42 - 75 % 01/02/2017 5:44 AM [facility] LYMPHOCYTES 27 24 - 44 % 01/02/2017 5:44 AM [facility] MONOCYTES 8 2 - 10 % 01/02/2017 5:44 AM [facility] EOSINOPHILS 7 0 - 7 % 01/02/2017 5:44 AM [facility] BASOPHILS 1 0 - 1 % 01/02/2017 5:44 AM [facility] IMMATURE GRANULOCYTES 1 0 - 2 % 01/02/2017 5:44 AM CDT [facility] NEUTROPHIL ABSOLUTE 5.79 2.00 - 8.00 K/uL 01/02/2017 5:44 AM CDT [facility] LYMPHOCYTE ABSOLUTE 2.78 1.20 - 4.00 K/uL 01/02/2017 5:44 AM CDT [facility] MONOCYTE ABSOLUTE 0.85(H) 0.10 - 0.60 K/uL 01/02/2017 5:44 AM CDT [facility] EOSINOPHIL ABSOLUTE 0.76(H) 0.00 - 0.70 K/uL 01/02/2017 5:44 AM CDT [facility] BASOPHILS ABSOLUTE 0.10 0.00 - 0.20 K/uL 01/02/2017 5:44 AM CDT [facility] IMMATURE GRANULOCYTES ABSOLUTE 0.09 0.00 - 0.10 K/uL 01/02/2017 5:44 AM CDT [facility] Blood 01/02/2017 3:00 AM CDT 01/02/2017 5:35 AM CDT us Izabela Diamond MD HEMATOLOGY ORDERABLES Final Re sult [facility] CLIA# [id number] [address] [place] [address] documented in this encounter Visit Diagnoses Not on filedocumented in this encounter Care Teams Health And Safety Advisor Relationship Specialty Start Date End Date Shravan Jones DO PCP - General Family Practice 12/04/16 documented as of this encounter
--- OUTSIDE RECORDS SUMMARY | 2025-06-21 08:03 | XMS_ITS | Encounter Summary ---
Author Organization [facility] Address [address] [place] [address] Care Team Providers Care Forklift Supervisor Name Role Phone Shravan Jones DO Primary Care Provider [phone] Encounter Details Date Type Department Care Team (Late st Contact Info) Description 01/07/2017 Lab Requisition 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 Stool STOOL SPECIMEN / Unknown 01/07/2017 1:54 PM CDT 01/07/2017 6:53 PM CDT Narrative [facility] - 01/07/2017 8:08 PM CDT This assay [...] MICROBIOLOGY - GENERAL ORDERAB LES Final Result [facility] [employer] [facility] CLIA# [id number] [address] [place] [address] documented in this encounter Visit Diagnoses Not on filedocumented in this encounter Care Teams Forklift Supervisor Relationship Specialty Start Date End Date Shravan Jones DO PCP - General Family Practice 12/04/16 documented as of this encounter
--- OUTSIDE RECORDS SUMMARY | 2025-06-21 08:03 | XMS_ITS | Encounter Summary ---
Author Organization [facility] Address [address] [place] [address] Care Team Providers Care Instrument Setter Name Role Phone Shravan Jones DO Primary Care Provider [phone]- [phone] Encounter Details Date Type Department Care Team (Latest Contact Info) Description 05/14/2003 Outpatient [facility] Oral and Maxillo Surgery[address] [place] [address] Jimmy Tineo, CLIVES NO ADDRESS ON FILE UNSPEC DENTAL CARIES (Primary Dx); TOOTH POSITION ANOMALY Social History Tobacco Use Types Packs/Day Years Used Date Smoking Tobacco: Never Assessed Comments Unknown Sex and Gender Information Value Date Recorded Sex Assigned at Not on file 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
--- OUTSIDE RECORDS SUMMARY | 2025-06-21 08:03 | XMS_ITS | Encounter Summary ---
Author Organization [facility] Address [address] [place] [address] Phone Care Team Providers Care Mammography Tech Name Role Phone Alexis Garcia MD Primary Care Provider [phone] Encounter Details Date Type Department Care Team (Late st Contact Info) Description 06/19/2025 Orders Only [facility] [address] [place] [address] Chey Navas MD [address] [place] [address] Social History Tobacco Use Types [...] Date/Time Associated Diagnosis Comments HEMOGLOBIN Routine 06/19/2025 documented in this encounter Results * (ABNORMAL) Hemoglobin (06/19/2025) Hemoglobin 10.9(L) 11.7 - 14.0 g/dL [facility] 06/19/2025 06/18/2025 2:2 7 PM MAGISTRATE JUDGE Narrative Resulting Agency Comment Performing Organization Information: Site ID: [id number] Name: [facility] Address: [address] [place], [place] [address] [address] Director: Jennifer De Jesus MD us Chey Navas MD LAB BLOOD ORDERABLES Final Re sult [facility] [address] [place] [address] documented in this encounter Visit Diagnoses Not on filedocumented in this encounter Care Teams Mammography Tech Relationship Specialty Start Date End Date Alexis Garcia MD [address] [place] [address] PCP - General Family Medicine 04/16/22 documented as of this encounter
--- OUTSIDE RECORDS SUMMARY | 2025-06-21 08:03 | XMS_ITS | Encounter Summary ---
Author Organization [facility] Address [address] [place] [address] Care Team Providers Care Pharmacy Intake Technician Name Role Phone Shravan Jones DO Primary Care Provider [phone] Encounter Details Date Type Department Care Team (Late st Contact Info) Description 12/12/2016 Nurse Only [facility] 4D Surgery Heart Lung [address] 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
--- OUTSIDE RECORDS SUMMARY | 2025-06-21 08:03 | XMS_ITS | Encounter Summary ---
Author Organization [facility] Address [address] [place] [address] Phone Care Team Providers Care Research Associate Name Role Phone Alexis Garcia MD Primary Care Provider [phone] Encounter Details Date Type Department Care Team (Late st Contact Info) Description 04/16/2022 Orders Only [facility] [address] [place] [address] Chronic kidney disease, Stage IV [...] (severe) documented in this encounter Care Teams Research Associate Relationship Specialty Start Date End Date Alexis Garcia MD [address] [place] [address] PCP - General Family Medicine 04/16/22 documented as of this encounter
--- OUTSIDE RECORDS SUMMARY | 2025-06-21 08:03 | XMS_ITS ---
Author Name [facility] Address [address] [place] [address] Phone [phone] Organization [facility] e, NA DOCUMENT DISCLAIMER Multiple document versions may exist, please be sure you review the latest version. 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 F June 19 06:07 AM Weight Vital Sign Value Date / Time Estimated Dry Weight 64 kg May 11:59 PM Pre-Dialysis 65.80 kg June 19 06:07 AM Post-Dialysis 64.40 kg June 19 06:07 AM Other Other Value Date / Time [...] Ran ge Provided Normal May 19, 2025 WBC (No Diff) 6.4 [...] - 14.0 g/dL Low June 10, 2025 HGB 10.9 g/dL 11.7 - 14.0 g/dL Low June 19, 2025 Hemoglobin x 3 32.7 No Reference Ran ge Provided Normal June 19, 2025 Metabolic/Renal Result Type Result Value Relevant [...] pg/mL 16 - 80 pg/mL High Jan [email or web address] PTH-Intact, Plasma 804 pg/mL 16 - 80 pg/mL High Feb tember 2024 Magnesium 2.0 mg/dL 1.6 - 2.6 mg/dL - March 02, 2025 Ca x P Product 44 0 - 54 - March Phosphorus 5.2 mg/dL 2.6 - 4.5 mg/dL High March Corrected Ca x P Product 46 0 - - March 25, 2025 Calcium, Total 8.4 mg/dL 8.4 - 10.2 mg/dL - 2024 PTH-Intact, Plasma 561 pg/mL 16 - 80 pg/mL High Mar [email or web address] Phosphorus 5.4 mg/dL 3.0 - 4.5 mg/dL High April 29, 2025 Calcium, Total 8.0 mg/dL 8.6 - 10.0 mg/dL Low 2024 PTH-Intact, Plasma 746 pg/mL 16 - 77 pg/mL High Apr PTH-Intact, Plasma 577 pg/mL 16 - 77 pg/mL High May Alkaline Phosphatase 155 U/L 31 - 125 U/L High 2024 Calcium, Total 8.2 mg/dL 8.6 - 10.0 mg/dL Low 2024 Magnesium 2.0 mg/dL 1.6 - 2.5 [...] 3.4 g/dL 3.6 - 5.1 g/dL Low 2024 Total Protein 6.8 g/dL 6.1 - 8.1 g/dL Normal 2024 Globulin (Calc) 3.4 No Reference Ran ge [...] 6.6 g/dL 6.1 - 8.1 g/dL Normal Decee 2024 Albumin (BCG) 3.4 g/dL 3.6 - 5.1 g/dL Low Decee 2024 Glucose 115 mg/dL 65 - 99 [...] Setting (mEq/L) 36 mEq/L Dialysis Access Hemodialysis-AV Thompson t-Synthetic - Standard (PTFE), Left Upper Arm, [...] Dialysis Access Meds Admin Decem 2024 Weight 65.10 kg Weight 65.10 kg 01:24:00 360 2.0 K, 2.5 Ca, 1.0 Mg, 100 Dextrose (G2251) FX CorAL 60 Blood Pressure-sitting 156/87 mmHg Blood Pressure-sit ting [...] minute - - Temperature 97.0 deg. F June 19, 2025 Weight 65.80 kg Weight 64.40 kg 03:48:00 350 2.0 K, 2.5 Ca, 1.0 Mg, 100 Dextrose (G2251) FX CorAL 60 Hemodialysis-AV Graft-Synthetic - Standard (PTFE), Left Upper Arm, Brachial Artery to Cephalic Vein Access Placed on August 10, 2024 Heparin Sodium (Porcine) 1,000 Units/mL Systemic; 2000units,Intravenous - push Ondansetron HCl (Zofran); 4mg,Intravenous Vitamin D (Calcitriol) Oral; 1.75mcg,Oral Blood Pressure-sitting 144/78 mmHg Blood Pressure-sit ting 129/72 mmHg Blood Pressure-standing 129/65 mmHg Blood Pressure-st anding 121/62 mmHg Heart Rate 81 beats per minute Heart Rate 70 beats per minute Respiratory Rate 16 breaths per minute Respiratory Rate 18 breaths per minute Temperature 97.8 deg. F Temperature 97.6 deg. F
--- OUTSIDE RECORDS SUMMARY | 2025-06-21 08:03 | XMS_ITS | Encounter Summary ---
Author Organization [facility] Address [address] [place] [address] Care Team Providers Care Assembly Room Supervisor Name Role Phone Shravan Jones DO Primary Care Provider [phone] Encounter Details Date Type Department Care Team (Late st Contact Info) Description 01/07/2017 Lab Requisition [facility] Services [address] [place] [address] David Ortega MD [address] [place] [address] Social History Tobacco Use Types Packs/Day Years Used Date Smoking Tobacco: Every Day Cigarettes Comments:pt lethargic Comments Unknown Sex and Gender Information Value Date Recorded Sex Assigned at Not on file 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
--- OUTSIDE RECORDS SUMMARY | 2025-06-21 08:03 | XMS_ITS | Encounter Summary ---
Author Organization [facility] Address [address] [place] [address] Care Team Providers Care Slurry Tank Tender Name Role Phone Shravan Jones DO Primary Care Provider [phone] Encounter Details Date Type Department Care Team (Late st Contact Info) Description 12/31/2016 Lab Requisition [facility] Laboratory Services [address] [place] [address] David Ortega MD [address] [place] [address] Social History Tobacco Use Types Packs/Day Years Used Date Smoking Tobacco: Every Day Cigarettes Comments:pt lethargic Comments Unknown Sex and Gender Information Value Date Recorded Sex Assigned at Not on file 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 This will have limited patient impact. us David Ortega MD CHEMISTRY ORDERABLES Final Res ult [facility] CLIA# [id number] [address] [place] [address] * (ABNORMAL) COMPREHENSIVE METABOLIC PANEL (12/31/2016 2:26 AM CDT) SODIUM 138 136 - 145 mmol/L 12/31/2016 5:52 AM CDT [facility] POTASSIUM 4.7 3.5 - 5.1 mmol/L 12/31/2016 5:52 AM [facility] CHLORIDE 102 98 - 107 mmol/L 12/31/2016 5:52 AM T [facility] CO2 27 21 - 32 mmol/L 12/31/2016 5:52 AM T [facility] CALCIUM 9.1 8.4 - 10.1 mg/dL 12/31/2016 5:52 AM T [facility] BUN 17 7 - 17 mg/dL 12/31/2016 5:52 AM T [facility] CREATININE 0.87 0.55 - 1.02 mg/dL 12/31/2016 5:52 AM T [facility] GLUCOSE 214(H) 74 - 106 mg/dL 12/31/2016 5:52 AM T [facility] TOTAL PROTEIN 8.2 6.4 - 8.2 g/dL 12/31/2016 5:52 AM T [facility] ALBUMIN 1.9(L) 3.4 - 5.0 g/dL 12/31/2016 5:52 AM CDT [facility] BILIRUBIN TOTAL 0.2 0.2 - 1.0 mg/dL 12/31/2016 5:52 AM CDT [facility] ALKALINE PHOSPHATASE 95 25 - 100 U/L 12/31/2016 5:52 AM CDT [facility] AST 9(L) 15 - 37 U/L 12/31/2016 5:52 AM CDT [facility] ALT 14 13 - 61 U/L 12/31/2016 5:52 AM CDT [facility] GFR >60 >=60 mL/min/1.7 3 sq meter 12/31/2016 5:52 AM T [facility] Comment: eGFR has not been [...] 3 sq meter 12/31/2016 5:52 AM CDT [facility] ANION GAP 9 4 - 30 mmol/L 12/31/2016 5:52 AM T [facility] Blood 12/31/2016 2:26 AM CDT 12/31/2016 5:17 AM CDT us David Ortega MD CHEMISTRY ORDERABLES Final Res ult [facility] CLIA# [id number] [address] [place] [address] * (ABNORMAL) CBC WITH DIFFERENTIAL (12/31/2016 2:26 AM CDT) WBC 13.7(H) 4.5 - 11.0 K/uL 12/31/2016 6:32 AM [facility] RBC 3.66(L) 4.20 - 5.40 M/uL 12/31/2016 6:32 AM [facility] HEMOGLOBIN 9.3(L) 12.0 - 16.0 g/dL 12/31/2016 6:32 AM [facility] [employer] [facility] HEMATOCRIT 29.6(L) 36.0 - 46.0 % 12/31/2016 6:32 AM [facility] [employer] [facility] MCV 80.9(L) 84.0 - 103.0 fL 12/31/2016 6:32 AM [facility] [employer] [facility] MCH 25.4(L) 27.0 - 34.0 pg 12/31/2016 6:32 AM [facility] MCHC 31.4 30.0 - 35.0 g/dL 12/31/2016 6:32 AM [facility] [employer] [facility] RDW 17.4(H) 11.0 - 14.5 % 12/31/2016 6:32 AM [facility] [employer] [facility] RDW-STDEV 52.1 37.0 - 54.0 fL 12/31/2016 6:32 AM [facility] [employer] [facility] PLATELETS 767(H) 140 - 440 K/uL 12/31/2016 6:32 AM [facility] [employer] [facility] MPV 9.0 8.9 - 12.8 fL 12/31/2016 6:32 AM [facility] [employer] [facility] NEUTROPHILS 68 42 - 75 % 12/31/2016 6:32 AM [facility] [employer] [facility] LYMPHOCYTES 17(L) 24 - 44 % 12/31/2016 6:32 AM [facility] [employer] [facility] MONOCYTES 8 2 - 10 % 12/31/2016 6:32 AM [facility] [employer] [facility] EOSINOPHILS 6 0 - 7 % 12/31/2016 6:32 AM [facility] [employer] [facility] BASOPHILS 0 0 - 1 % 12/31/2016 6:32 AM [facility] [employer] [facility] IMMATURE GRANULOCYTES 1 0 - 2 % 12/31/2016 6:32 AM CDT [facility] NEUTROPHIL ABSOLUTE 9.26(H) 2.00 - 8.00 K/uL 12/31/2016 6:32 AM CDT [facility] LYMPHOCYTE ABSOLUTE 2.28 1.20 - 4.00 K/uL 12/31/2016 6:32 AM CDT [facility] MONOCYTE ABSOLUTE 1.07(H) 0.10 - 0.60 K/uL 12/31/2016 6:32 AM CDT [facility] EOSINOPHIL ABSOLUTE 0.82(H) 0.00 - 0.70 K/uL 12/31/2016 6:32 AM CDT [facility] BASOPHILS ABSOLUTE 0.06 0.00 - 0.20 K/uL 12/31/2016 6:32 AM CDT [facility] IMMATURE GRANULOCYTES ABSOLUTE 0.17(H) 0.00 - 0.10 K/uL 12/31/2016 6:32 AM CDT [facility] Blood 12/31/2016 2:26 AM CDT 12/31/2016 5:17 AM CDT Narrative [facility] - 12/31/2016 6:32 AM CDT Smear reviewed us David Ortega MD HEMATOLOGY ORDERABLES Final Re sult [facility] CLIA# [id number] [address] [place] [address] documented in this encounter Visit Diagnoses Not on filedocumented in this encounter Care Teams Slurry Tank Tender Relationship Specialty Start Date End Date Shravan Jones DO PCP - General Family Practice 12/04/16 documented as of this encounter
--- OUTSIDE RECORDS SUMMARY | 2025-06-21 08:03 | XMS_ITS | Encounter Summary ---
Author Organization [facility] Address [address] [place] [address] Care Team Providers Care Sql Dba Name Role Phone Shravan Jones DO Primary Care Provider [phone] Encounter Details Date Type Department Care Team (Late st Contact Info) Description 01/07/2017 Lab Requisition [facility] Laboratory Services [address] [place] [address] Izabela Diamond MD NO ADDRESS ON FILE Social History Tobacco Use Types Packs/Day Years Used Date Smoking Tobacco: Every Day Cigarettes Comments:pt lethargic Comments Unknown Sex and Gender Information Value Date Recorded Sex Assigned at Not on file 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 Blood 01/07/2017 2:23 AM CDT 01/07/2017 5:01 AM CDT Izabela Diamond MD CHEMISTRY ORDERABLES Final Res ult Performing Organization Address City/[facility]/ZIP Co de Phone Number [facility] CLIA# [id number] [address] [place] [address] * (ABNORMAL) C-REACTIVE PROTEIN (01/07/2017 2:23 AM CDT) CRP 16.6(H) 0.0 - 2.9 mg/L 01/07/2017 5:27 AM CDT [facility] Blood 01/07/2017 2:23 AM CDT 01/07/2017 5:01 AM CDT Izabela Diamond MD CHEMISTRY ORDERABLES Final Res ult Performing Organization Address [facility] Co de Phone Number [facility] CLIA# [id number] [address] [place] [address] * (ABNORMAL) BASIC METABOLIC PANEL (01/07/2017 2:23 AM CDT) SODIUM 139 136 - 145 mmol/L 01/07/2017 5:27 AM CDT [facility] [employer] [facility] POTASSIUM 4.1 3.5 - 5.1 mmol/L 01/07/2017 5:27 AM CDT [facility] [employer] [facility] CHLORIDE 104 98 - 107 mmol/L 01/07/2017 5:27 AM CDT [facility] [employer] [facility] CO2 26 21 - 32 mmol/L 01/07/2017 5:27 AM CDT [facility] [employer] [facility] CALCIUM 9.1 8.4 - 10.1 mg/dL 01/07/2017 5:27 AM CDT [facility] [employer] [facility] BUN 14 7 - 17 [...] 4 - 30 mmol/L 01/07/2017 5:27 AM [facility] Blood 01/07/2017 2:23 AM CDT 01/07/2017 5:01 AM CDT us Izabela Diamond MD CHEMISTRY ORDERABLES Final Res ult [facility] CLIA# [id number] [address] [place] [id number] * (ABNORMAL) CBC WITH DIFFERENTIAL (01/07/2017 2:23 AM CDT) WBC 9.3 4.5 - 11.0 K/uL 01/07/2017 5:27 AM CDT [facility] RBC 4.19(L) 4.20 - 5.40 M/uL 01/07/2017 5:27 AM CDT [facility] HEMOGLOBIN 10.3(L) 12.0 - 16.0 g/dL 01/07/2017 5:27 AM [facility] HEMATOCRIT 33.2(L) 36.0 - 46.0 % 01/07/2017 5:27 AM [facility] MCV 79.2(L) 84.0 - 103.0 fL 01/07/2017 5:27 AM [facility] MCH 24.6(L) 27.0 - 34.0 pg 01/07/2017 5:27 AM [facility] MCHC 31.0 30.0 - 35.0 g/dL 01/07/2017 5:27 AM [facility] RDW 17.2(H) 11.0 - 14.5 % 01/07/2017 5:27 AM [facility] RDW-STDEV 49.4 37.0 - 54.0 fL 01/07/2017 5:27 AM [facility] PLATELETS 545(H) 140 - 440 K/uL 01/07/2017 5:27 AM [facility] MPV 10.2 8.9 - 12.8 fL 01/07/2017 5:27 AM [facility] NEUTROPHILS 53 42 - 75 % 01/07/2017 5:27 AM [facility] LYMPHOCYTES 26 24 - 44 % 01/07/2017 5:27 AM [facility] MONOCYTES 9 2 - 10 % 01/07/2017 5:27 AM [facility] EOSINOPHILS 11(H) 0 - 7 % 01/07/2017 5:27 AM [facility] BASOPHILS 1 0 - 1 % 01/07/2017 5:27 AM [facility] IMMATURE GRANULOCYTES 0 0 - 2 % 01/07/2017 5:27 AM [facility] NEUTROPHIL ABSOLUTE 4.88 2.00 - 8.00 K/uL 01/07/2017 5:27 AM [facility] LYMPHOCYTE ABSOLUTE 2.45 1.20 - 4.00 K/uL 01/07/2017 5:27 AM [facility] MONOCYTE ABSOLUTE 0.79(H) 0.10 - 0.60 K/uL 01/07/2017 5:27 AM CDT [facility] EOSINOPHIL ABSOLUTE 1.01(H) 0.00 - [...] Re sult [facility] CLIA# [id number] [address] [place] [id number] documented in this encounter Visit Diagnoses Not on filedocumented in this encounter Care Teams Sql Dba Relationship Specialty Start Date End Date Shravan Jones DO PCP - General Family Practice 12/04/16 documented as of this encounter
--- OUTSIDE RECORDS SUMMARY | 2025-06-21 08:03 | XMS_ITS | Continuity of Care Document ---
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 08/24/[address] of chest completed [facility], LJacoboLJacoboCJacobo 08/24/2024 12:28:02 04/28/20 24 plain X-ray of chest completed [facility] 04/30/2024 11:08:42 03/31/20 24 plain X-ray of chest completed [facility] 04/01/2024 14:05:05 03/27/20 24 imaging guided percutaneous transluminal angioplasty of coronary artery with contrast completed [facility] 10/05/2024 10:23:19 02/28/20 24 radiographic procedure on chest and/or abdomen completed [facility] 03/04/2024 15:02:31 02/28/[address] of abdomen completed [facility] L.LJacoboCJacobo 03/04/2024 15:03:26 01/19/20 24 diagnostic radiography of abdomen completed [facility] 01/21/2024 17:26:25 01/06/20 24 plain X-ray of chest completed [facility] 01/07/2024 15:42:42 12/27/19 24 plain X-ray of chest completed [facility] 12/29/2023 23:23:06 12/27/19 24 CT of chest, abdomen and pelvis completed [facility] 12/29/2023 23:32:58 12/24/19 24 plain X-ray of chest completed [facility] 12/29/2023 23:56:29 12/20/[address] of chest completed [facility] 12/21/2023 12:33:52 12/20/19 24 plain X-ray of chest completed [facility] 12/21/2023 12:34:44 12/09/19 24 plain X-ray of chest completed [facility] 12/12/2023 10:16:37 12/05/19 24 plain X-ray of chest completed [facility] 12/06/2023 13:24:46 11/28/19 24 cardiac catheterization completed [facility] 12/06/2023 13:11:07 11/28/19 24 imaging guided percutaneous transluminal angioplasty of coronary artery with contrast completed [facility] 10/05/2024 10:22:55 11/27/19 24 plain X-ray of chest completed [facility] 11/28/2023 10:19:35 10/24/19 24 imaging guided percutaneous transluminal angioplasty of coronary artery with contrast completed [facility] 10/05/2024 10:22:32 10/16/19 24 imaging guided percutaneous transluminal angioplasty of coronary artery with contrast completed [facility] 10/05/2024 10:22:12 10/07/19 24 plain X-ray of chest completed CAMP NELSON RISHABH [facility] 10/08/2023 17:52:40 09/20/19 24 echocardiography completed CAMP NELSON RISHABH [facility] LJacoboL.CJacobo 09/26/2023 12:48:56 lobectomy of lung completed XIMENA RISHABH [facility], LJacoboL.CJacobo 10/10/2023 12:32:47 amputation completed XIMENA RISHABH [facility] 08/24/2024 12:24:04 cholecystectomy completed [facility] 09/13/2024 14:49:22 Imaging Results None recorded. Procedure Notes None recorded. Medical Equipment None Reported. Allergies Allergen ID Allergen Name Allergen Category Reaction Reaction Severity Criticality Documentation Date Start Date Code Code System Note Provider Name and Address Organization Details Recorded Time 58886 acetamino phen medicatio n abdominal pain moderate low 01/19/20232021 161 RxNorm GI upset /into leran ce Anh coles [facility] 4 07:57:42 05813 acetamino phen medicatio n Not available Not available Not available 02/21/20242023 161 RxNorm NAJMA HOUSER, SUZANNE [address] [place], [address], [facility].C[facility]obo 15:59:31 27434 ranolazin e medicatio n Not available Not available Not available 04/14/2025 10623 RxNorm Hallu cinat ions XIMENA coles [facility]ay. 5 11:33:58 Medications Name Sig Start [...] wanted her to decrease to 100mg TID [facility], 02/27 and 02/28 Not Available Not Available [...] times per day 10/09 completed VO CH/jl; 05683; Recorded 05/14/20 19 10:02AM by Leydi Jessica [...] Last Updated DateTime 152.4 cm 27.3 kg/m2 05200.9 3 g 97 % 88 /min 20 /min 174/100 mm[Hg] 170/90 mm[Hg] XIMENA KEATING [facility] 15:22:55 Social History Question Answer Notes LastModified by Organizat ion Details LastModified Time Tobacco Smoking Status Former Smoker Quit 07/2023 XIMENA coles [facility] 12/24/2023 12:30:16 What Type Of Diet Are You Following? REGULAR [email or web address] Information not available 12/24/2023 Which Illicit Or Recreational Drugs Have You Used? Smokes Meth [email or web address] Information not available 10/10/2023 When Did You Quit Smoking? 1-5yearssin [email or web address] herrerate Information not available 12/24/2023 What Was The Date Of Your Most Recent Tobacco Screening? 12/24/2023 Information not available 12/24/2023 What Is Your Current Pack Years? 20-29packye ars Information not available 12/24/2023 What Is Your Relationship Status? Single [email or web address] Information not available 12/24/2023 At What Age [...] or recreational drugs? Yes Quit Meth 07/2023 [email or web address] Information not available 12/24/2023 Do you or have you ever used any other forms of tobacco or nicotine? No Information not available 12/24/2023 What is your level of alcohol consumption? None [email or web address] Information not available 10/10/2023 Are you currently employed? No disabled [email or web address] Information not available 10/10/2023 Are you able to walk independently without assistance or assistive devices? YESASSIST [email or web address] Information not available 10/10/2023 Are you able to care for yourself independently? No Mother is her caregiver. [email or web address] Information not available 10/10/2023 Do you or have you ever used any nicotine-free cigarettes, vape, or chewing tobacco? No Information not available 12/24/2023 Mental Status None recorded. Family History Relationship Description Onset Age of this Age Resolved Age Notes LastModified by Organization Details LastModified Time Mother Myocardial infarction In her 50's [email or web address] Not available 12/29/2023 23:44:26 Mother Rheumatoid arthritis [email or web address] Not available 12/28 23:44:44 Brother Acute lymphoid [...] polysaccharide PPV23 8 completed SUZANNE HEATON [address] [place], [address], [facility], .LSanju 12/24/2023 12:51:09 Past Encounters Encounter ID Performer Location Encounter Start Date Encounter Closed Date Diagnosis/Indication Diagnosis SNOMED-CT Code Diagnosis ICD10 Code Diagnosis IMO Codes Diagnosis Note [id number] SUZANNE HEATON [employer] [facility] [address] [place] [address] 06/09/2025 15:06:12 06/09/2025 16:23:26 Essential hypertension 23446872 I10 Blood pressure elevated. She has been bottoming out at dialysis. Type 1 mainor betes mellitus 92363693 E10.22 Planning on getting an insulin pump tomorrow. Spasm 70503563 M62.838 Generalized edema 830819 008 R60.1 54467 Chest wall pain 49411893 6 R07.89 97370 Recurrent. Following with cardiology . Recently started Isosorbide . Cellulitis of right index finger 7662539019 7100 L03.011 24674838 Continue antibiotic s. Health Concerns Section Related Observation LastModified by Organization Detai ls LastModified Time None Recorded Concern Status LastModified by Organization Details LastModified Time None Recorded Payers Encounter Date Sequence Insurance Name Policy Number Policy Varela Covered Member ID Varela Member ID Guarantor Name 06/09/2025 1 [place] Donita Aguilar [id number] Donita Aguilar 06/09/2025 2 [place] Donita Aguilar [id number] Donita Aguilar Notes Date Note Type Note [...] reportsmyocardial infarction,end-stage renal disease, anddiabetes. NAJMA HOUSER, [facility] [address] [place], [address], [facility] 06/09/2025 16:15:09 OBGyn Episode No OBEpisode recorded.
--- OUTSIDE RECORDS SUMMARY | 2025-06-21 08:03 | XMS_ITS | Encounter Summary ---
Author Organization [facility] Address [address] [place] [address] Care Team Providers Care [employer] Professor Name Role Phone Shravan Jones DO Primary Care Provider [phone] Encounter Details Date Type Department Care Team (Late st Contact Info) Description 01/09/2017 Lab Requisition [facility] Laboratory Services [facility] [address] [place] [address] Izabela Diamond MD NO ADDRESS ON FILE Social History Tobacco Use Types Packs/Day Years Used Date Smoking Tobacco: Every Day Cigarettes Comments:pt lethargic Comments Unknown Sex and Gender Information Value Date Recorded Sex Assigned at Not on file Legal Sex Female 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 This will have limited patient impact. us Izabela Diamond MD CHEMISTRY ORDERABLES Final Res ult [facility] CLIA# [id number] [address] [place] [address] * (ABNORMAL) COMPREHENSIVE METABOLIC PANEL (01/09/2017 3:15 AM CDT) SODIUM 139 136 - 145 mmol/L 01/09/2017 5:53 AM CDT [facility] POTASSIUM 4.1 3.5 - 5.1 mmol/L 01/09/2017 5:53 AM T [facility] CHLORIDE 101 98 - 107 mmol/L 01/09/2017 5:53 AM T [facility] CO2 28 21 - 32 mmol/L 01/09/2017 5:53 AM T [facility] CALCIUM 8.8 8.4 - 10.1 mg/dL 01/09/2017 5:53 AM T [facility] BUN 18(H) 7 - 17 mg/dL 01/09/2017 5:53 AM T [facility] CREATININE 0.73 0.55 - 1.02 mg/dL 01/09/2017 5:53 AM T [facility] GLUCOSE 182(H) 74 - 106 mg/dL 01/09/2017 5:53 AM T [facility] TOTAL PROTEIN 8.4(H) 6.4 - 8.2 g/dL 01/09/2017 5:53 AM T [facility] ALBUMIN 2.5(L) 3.4 - 5.0 g/dL 01/09/2017 5:53 AM CDT [facility] BILIRUBIN TOTAL 0.2 0.2 - 1.0 mg/dL 01/09/2017 5:53 AM CDT [facility] ALKALINE PHOSPHATASE 99 25 - 100 U/L 01/09/2017 5:53 AM CDT [facility] AST 30 15 - 37 U/L 01/09/2017 5:53 AM CDT [facility] ALT 27 13 - 61 U/L 01/09/2017 5:53 AM CDT [facility] GFR >60 >=60 mL/min/1.7 3 sq meter 01/09/2017 5:53 AM T [facility] Comment: eGFR has not been validated [...] 3 sq meter 01/09/2017 5:53 AM CDT [facility] ANION GAP 10 4 - 30 mmol/L 01/09/2017 5:53 AM T [facility] Blood 01/09/2017 3:15 AM CDT 01/09/2017 5:12 AM CDT us Izabela Diamond MD CHEMISTRY ORDERABLES Final Res ult [facility] CLIA# [id number] [address] [place] [address] * (ABNORMAL) CBC WITH DIFFERENTIAL (01/09/2017 3:15 AM CDT) WBC 8.7 4.5 - 11.0 K/uL 01/09/2017 5:20 AM [facility] RBC 4.63 4.20 - 5.40 M/uL 01/09/2017 5:20 AM [facility] HEMOGLOBIN 11.3(L) 12.0 - 16.0 g/dL 01/09/2017 5:20 AM [facility] HEMATOCRIT 36.8 36.0 - 46.0 % 01/09/2017 5:20 AM [facility] MCV 79.5(L) 84.0 - 103.0 fL 01/09/2017 5:20 AM [facility] MCH 24.4(L) 27.0 - 34.0 pg 01/09/2017 5:20 AM [facility] MCHC 30.7 30.0 - 35.0 g/dL 01/09/2017 5:20 AM [facility] RDW 17.3(H) 11.0 - 14.5 % 01/09/2017 5:20 AM [facility] RDW-STDEV 50.4 37.0 - 54.0 fL 01/09/2017 5:20 AM [facility] PLATELETS 463(H) 140 - 440 K/uL 01/09/2017 5:20 AM [facility] MPV 9.9 8.9 - 12.8 fL 01/09/2017 5:20 AM [facility] NEUTROPHILS 46 42 - 75 % 01/09/2017 5:20 AM [facility] LYMPHOCYTES 33 24 - 44 % 01/09/2017 5:20 AM [facility] MONOCYTES 8 2 - 10 % 01/09/2017 5:20 AM [facility] EOSINOPHILS 11(H) 0 - 7 % 01/09/2017 5:20 AM [facility] BASOPHILS 1 0 - 1 % 01/09/2017 5:20 AM [facility] IMMATURE GRANULOCYTES 0 0 - 2 % 01/09/2017 5:20 AM [facility] NEUTROPHIL ABSOLUTE 4.05 2.00 - 8.00 K/uL 01/09/2017 5:20 AM CDT [facility] LYMPHOCYTE ABSOLUTE 2.86 1.20 - 4.00 K/uL 01/09/2017 5:20 AM CDT [facility] MONOCYTE ABSOLUTE 0.73(H) 0.10 - 0.60 K/uL 01/09/2017 5:20 AM CDT [facility] EOSINOPHIL ABSOLUTE 0.95(H) 0.00 - 0.70 K/uL 01/09/2017 5:20 AM CDT [facility] BASOPHILS ABSOLUTE 0.11 0.00 - 0.20 K/uL 01/09/2017 5:20 AM CDT [facility] IMMATURE GRANULOCYTES ABSOLUTE 0.03 0.00 - 0.10 K/uL 01/09/2017 5:20 AM CDT [facility] Blood 01/09/2017 3:15 AM CDT 01/09/2017 5:12 AM CDT us Izabela Diamond MD HEMATOLOGY ORDERABLES Final Re sult [facility] CLIA# [id number] [address] [place] [address] * (ABNORMAL) HEMOGLOBIN A1C (01/09/2017 2:52 AM CDT) HEMOGLOBIN A1C 8.9(H) 4.0 - 6.0 % 01/09/2017 1:31 PM CDT [facility] EST. AVG GLUCOSE, A1C 209 mg/dL 01/09/2017 1:31 PM CDT [facility] Blood 01/09/2017 2:52 AM CDT 01/09/2017 6:53 AM CDT Narrative [facility] - 01/09/2017 1:31 PM CDT Test performed on [employer] instrumentation using HPLC methodology us Izabela Diamond MD CHEMISTRY ORDERABLES Final Res ult [facility] CLIA# [id number] [address] [place] [address] documented in this encounter Visit Diagnoses Not on filedocumented in this encounter Care Teams [employer] Professor Relationship Specialty Start Date End Date Shravan Jones DO PCP - General Family Practice 12/04/16 documented as of this encounter
[2025-06-21 08:06] VITALS: BP 142/60; PULSE 73; RESP 20; TEMP 36.8; O2SAT 98; BMI 27.3
[2025-06-21 08:34] LABS: Hematocrit 35.9 % (36-47); Hemoglobin 11.30 g/dL (11.27-16.99); Mean Corpuscular HGB Conc 31.5 g/dL (30-55); Mean Corpuscular Hemoglobin 29.7 pg (27-33); Mean Corpuscular Volume 94.2 fl (85-98); Nucleated Red Blood Cells % 0 %; Platelet Count 138 10^3/cmm (157-399); Red Blood Count 3.81 10^6/uL (3.85-5.65); White Blood Count 5.24 10^3/uL (3.29-11.43)
--- NOTE | 2025-06-21 08:42 | W.ED.CHESTPA ---
HPI - Chest Pain General: Chief Complaint: Chest Pain Stated Complaint: chest pain/pressure Time Seen by Provider: 06/21/25 08:36 Source: patient and EMS Mode of arrival: EMS Limitations: no limitations History of Present Illness: 39-year-old female very well-known to the ER with multiple medical comorbidities including end-stage renal disease on dialysis patient has a history of chronic chest pain states she started having chest pain today roughly an hour into dialysis pain was sharp rates it a 4 out of 10 she denies any fevers denies any shortness of breath denies any worse or improving factors. Related Data Home Medications ?Medication ?Instructions ?Recorded ?Confirmed gabapentin 100 mg capsule 100 mg PO TID 12/27/23 06/14/25 clopidogrel 75 mg tablet 75 mg PO DAILY 04/28/24 06/14/25 escitalopram oxalate 20 mg tablet 20 mg PO DAILY anxiety 02/14/25 06/14/25 folic acid 1 mg tablet 1 mg PO DAILY 02/14/25 06/14/25 hydralazine 25 mg tablet 12.5 mg PO BID 02/14/25 06/14/25 nitroglycerin 0.4 mg sublingual See Rx Instructions .Route .COMPLEX 02/22/25 06/14/25 tablet cyclobenzaprine 10 mg tablet 10 mg PO TID PRN MUSCLE SPASM 04/22/25 06/14/25 tramadol 50 mg tablet 50 mg PO DAILY 04/22/25 06/14/25 bumetanide 1 mg tablet 1 mg PO DAILY 06/14/25 06/14/25 clindamycin HCl 300 mg capsule 300 mg PO BID x7days 06/14/25 06/14/25 diphenhydramine HCl 25 mg capsule 25 mg PO TID PRN itching/rash 06/14/25 06/14/25 (Benadryl) hydroxyzine HCl 25 mg tablet 25 mg PO BID 06/14/25 06/14/25 sodium polystyrene sulfonate 15 15 g PO DAILY PRN elevated 06/14/25 06/14/25 gram oral powder potassium Previous Rx's ?Medication ?Instructions ?Recorded blood-glucose sensor (Dexcom G6 #3 ea 06/12/22 Sensor device) blood-glucose transmitter (Dexcom #1 ea 06/12/22 G6 Transmitter device) blood-glucose,resource conservation manager,cont #1 ea 12/20/22 (Dexcom G6 Hide Shaker) sevelamer carbonate 800 mg tablet 800 mg PO TID #90 tabs 09/16/23 aspirin 81 mg tablet,delayed 81 mg PO QAM 30 days #30 tabs 03/28/24 release atorvastatin 40 mg tablet 40 mg PO BEDTIME 30 days #30 tabs 03/28/24 AFO brace #1 ea 04/20/24 diabetic shoes with 3 inserts #1 ea 04/20/24 amlodipine 5 mg tablet 5 mg PO DAILY #30 tabs 09/30/24 colchicine 0.6 mg tablet 0.6 mg PO DAILY #30 tabs 04/23/25 isosorbide mononitrate 60 mg 60 mg PO DAILY #30 tabs 04/23/25 tablet,extended release 24 hr metoclopramide HCl 5 mg tablet 5 mg PO Q8H PRN nausea and 05/23/25 (Reglan) vomiting #20 tabs insulin aspart U-100 100 unit/mL See Rx Instructions .Route 06/03/25 subcutaneous solution (Novolog .COMPLEX #10 mL U-100 Insulin aspart) methocarbamol 750 mg tablet 750 mg PO Q6H PRN spasms #20 tabs 06/13/25 naproxen 500 mg tablet (Naprosyn) 500 mg PO BID PRN pain #20 tabs 06/13/25 Allergies Allergy/AdvReac Type Severity Reaction Status Date / Time acetaminophen AdvReac Mild ADR-Gastrointestinal Verified 05/30/25 22:14 Upset Review of Systems Card: Reports: chest pain [facility] ED PFSH: Medical History (Updated 06/21/25 @ 10:17 by Ronny Ayala MD) Insulin dependent diabetes mellitus with complications Chest pain Diabetes mellitus Primary hypertension HTN (hypertension), benign Hyperkalemia Headache Accelerated hypertension Uncontrolled type 1 diabetes mellitus ESRD (end stage renal disease) Dialysis complication Hypoglycemia Hemodialysis catheter dysfunction Colitis End stage renal disease on dialysis COPD (chronic obstructive pulmonary disease) Transaminitis Intractable nausea and vomiting Hyperlipidemia CHF (congestive heart failure), NYHA class III Pulmonary hypertension Coronary artery disease involving [place] heart with angina pectoris, unspecified vessel or lesion type Neurogenic bladder COVID-19 Tobacco dependence Drug abuse Anemia Community acquired pneumonia Esophagitis Long-term insulin use History of pancreatitis Celiac disease Recurrent UTI Non-alcoholic fatty liver disease Arnold-Chiari malformation Diabetic gastroparesis -continue Reglan Diabetic neuropathy associated with type 1 diabetes mellitus Headache, common migraine, intractable, with status migrainosus Pleural effusion 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 History of lung surgery -s/p LLL lobectomy secondary to cavitary pneumonia (2017) History of endoscopy History of cholecystectomy Family History Grandfather Diabetes Mother CAD (coronary artery disease) Diabetes Heart disease Hypertension Brother Acute lymphoblastic leukemia (ALL) in child Grandmother Thyroid disease Denies family history of Colon cancer Ovarian cancer Prostate cancer Hyperlipidemia Breast cancer Uterine cancer Stroke Social History Smoking and tobacco/nicotine status: former use of tobacco/nicotine Quit status (tobacco/nicotine): has quit using Former quit date comment: She previously smoked <1/2 PPD, quit July 2023. 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 Female Reproductive History: Date of last menstrual period: 06/04/25 Spontaneous abortions: No Physical Exam Const: COMMON NORMALS: no acute distress, patient oriented x3 and healthy appearing HENMT: COMMON NORMALS: normocephalic and atraumatic HEAD & SCALP: normocephalic and atraumatic Neck/C-Spine: COMMON NORMALS: full ROM and supple Chest: COMMONS NORMALS: normal inspection of the chest Resp: COMMON NORMALS: normal respiratory effort Cardio: COMMON NORMALS: regular rate, regular rhythm and No murmurs present (Cardio) RATE: regular rate RHYTHM: regular rhythm GI: COMMON NORMALS: Normal to inspection, nondistended, normoactive bowel sounds present, Soft to palpation, non-tender and no masses PALPATION: Yes Soft to palpation Extremity: COMMON NORMALS: normal to inspection and full ROM Neuro: COMMON NORMALS: patient oriented x3, moves all extremities and no focal motor deficits Psych: COMMON NORMALS: mental status grossly normal, Normal thought process present and cooperative THOUGHT PROCESS: Normal thought process present Skin: COMMON NORMALS: no rashes or lesions noted and no wounds GENERAL SKIN EXAM: no rashes or lesions noted Course Vital Signs: Vital signs: Vital Signs Temperature 98.3 F 06/21/25 08:06 Pulse Rate 73 06/21/25 09:47 Respiratory Rate 18 06/21/25 08:45 Blood Pressure 142/60 06/21/25 08:06 Pulse Oximetry 98 06/21/25 09:47 Oxygen Delivery Nv thod Room Air 06/21/25 08:06 MDM - Chest Pain Medical Decision Making Patient presents here with chronic chest pain she has been well-appearing here and her baseline EKG showed no acute abnormalities 2-hour troponin had a delta less than 10 patient's pain improved here. She has no signs of ACS she has had multiple cardiac workups in the past and stress test. Patient has no signs of pneumonia or pulmonary emboli. She is stable for discharge she is follow-up with her song writer return if worsening she understands agrees to plan. EKG interpreted by me at 0 810 normal sinus rhythm heart rate [address] elevation QRS 107 QTc 465 Second EKG interpreted by me at 0907 normal sinus rhythm heart rate [address] elevation QRS 104 QTc 438 Medical Records I reviewed the patient's medical records. Lab Data I reviewed the patient's lab results. 06/21/25 08:25 06/21/25 08:25 Radiology Impressions Chest X-Ray 06/21/25 07:50 Impression: Left thoracotomy. Laboratory Results WBC 5.24 10^3/uL (3.29-11.43) 06/21/25 08:25 RBC 3.81 10^6/uL (3.85-5.65) L 06/21/25 08:25 Hgb 11.30 g/dL (11.27-16.99) 06/21/25 08:25 Hct 35.9 % (36-47) L 06/21/25 08:25 MCV 94.2 fl (85-98) 06/21/25 08:25 MCH 29.7 pg (27-33) 06/21/25 08:25 MCHC 31.5 g/dL (30-55) 06/21/25 08:25 RDW 13.5 % (12.1-15.1) 06/21/25 08:25 Plt Count 138 10^3/cmm (157-399) L 06/21/25 08:25 MPV 9.7 fL (7.4-10.4) 06/21/25 08:25 Neut % (Auto) 64.6 % 06/21/25 08:25 Lymph % (Auto) 21.4 % 06/21/25 08:25 [place] % (Auto) 9.0 % 06/21/25 08:25 Eos % (Auto) 4.0 % 06/21/25 08:25 Baso % (Auto) 0.8 % 06/21/25 08:25 Neut # (Auto) 3.39 10^3/uL (1.8-7.7) 06/21/25 08:25 Lymph # (Auto) 1.1 10^3/uL (0.8-4.8) 06/21/25 08:25 [place] # (Auto) 0.5 10^3/uL (0.2-0.9) 06/21/25 08:25 Eos # (Auto) 0.2 10^3/uL (0.0-0.8) 06/21/25 08:25 Baso # (Auto) 0.0 10^3/uL (0.0-0.1) 06/21/25 08:25 Nucleated RBC % (auto) 0 % 06/21/25 08:25 Nucleated RBCs # 0.0 /100WBC 06/21/25 08:25 Sodium 136 mmol/L (136-145) 06/21/25 08:25 Potassium 4.4 mmol/L (3.5-5.1) 06/21/25 08:25 Chloride 95 mmol/L (98-107) L 06/21/25 08:25 Carbon Dioxide 29 mmol/L (22-29) 06/21/25 08:25 Anion Gap 16.4 (5-19) 06/21/25 08:25 BUN 14 mg/dL (6-20) 06/21/25 08:25 Creatinine 4.5 mg/dL (0.5-0.9) H 06/21/25 08:25 GFR Calculation 10.9 mL/min (90-130) L 06/21/25 08:25 Glucose 139 mg/dL (65-115) H 06/21/25 08:25 Calculated Osmolality 285 mOsm/kg (285-295) 06/21/25 08:25 Calcium 8.8 mg/dL (8.5-10.5) 06/21/25 08:25 Total Bilirubin 0.3 mg/dL (0.15-1.2) 06/21/25 08:25 AST 27 U/L (0-32) 06/21/25 08:25 ALT 43 U/L (0-33) H 06/21/25 08:25 Alkaline Phosphatase 155 U/L (35-105) H 06/21/25 08:25 Troponin T Baseline 195 ng/L (0-10) H* 06/21/25 08:25 Troponin T 60 Minute 202.3 ng/L (0-10) H 06/21/25 09:44 Delta Troponin T 7.3 ABS# (0-10) 06/21/25 09:44 Total Protein 6.8 g/dL (6.6-8.7) 06/21/25 08:25 Albumin 3.7 g/dL (3.5-5.2) 06/21/25 08:25 Globulin 3.1 g/dL (1.3-4.6) 06/21/25 08:25 Lipase 19 U/L (13-60) 06/21/25 08:25 No radiology studies performed this visit Discharge Plan Discharge Patient Disposition: Home Clinical Impression: Atypical chest pain Condition: Stable Prescriptions: No Action (DME) AFO brace See Rx Instructions .Route .MEDSUPPLY Qty: 1 0RF Rx Instructions: As directed to the shoe guys (DME) diabetic shoes with 3 inserts See Rx Instructions .Route .MEDSUPPLY Qty: 1 0RF Rx Instructions: As directed to the shoe guys (DME) Dexcom G6 Hide Shaker Misc See Rx Instructions .Route Qty: 1 0RF Rx Instructions: As directed (DME) Dexcom G6 Sensor Device See Rx Instructions .Route Qty: 3 0RF Rx Instructions: As directed (DME) Dexcom G6 Transmitter Device See Rx Instructions .Route Qty: 1 0RF Rx Instructions: As directed insulin aspart U-100 [Novolog U-100 Insulin aspart] 100 unit/mL solution See Rx Instructions .ROUTE .COMPLEX MDD 35 units Qty: 10 0RF Rx Instructions: 35 units daily via insulin pump; atorvastatin 40 mg tablet 40 mg PO BEDTIME 30 Days Qty: 30 0RF aspirin 81 mg tablet,delayed release (DR/EC) 81 mg PO QAM 30 Days Qty: 30 0RF amlodipine 5 mg Tablet 5 mg PO DAILY Qty: 30 0RF metoclopramide HCl [Reglan] 5 mg tablet 5 mg PO Q8H PRN (Reason: nausea and vomiting) Qty: 20 0RF clindamycin HCl 300 mg capsule 300 mg PO BID diphenhydramine HCl [Benadryl] 25 mg Capsule 25 mg PO TID PRN (Reason: itching/rash) bumetanide 1 mg tablet 1 mg PO DAILY Rx Instructions: on non dialysis days hydroxyzine HCl 25 mg tablet 25 mg PO BID sodium polystyrene sulfonate 15 gram powder 15 g PO DAILY PRN (Reason: elevated potassium) sevelamer carbonate 800 mg Tablet 800 mg PO TID Qty: 90 0RF gabapentin 100 mg Capsule 100 mg PO TID clopidogrel 75 mg tablet 75 mg PO DAILY hydralazine 25 mg tablet 12.5 mg PO BID folic acid 1 mg tablet 1 mg PO DAILY escitalopram oxalate 20 mg tablet 20 mg PO DAILY nitroglycerin 0.4 mg tablet, sublingual See Rx Instructions .ROUTE .COMPLEX Rx Instructions: DISSOLVE ONE TABLET UNDER THE TONGUE EVERY 5 MINUTES NEEDED FOR CHEST PAIN. DO NOT EXCEED A TOTAL OF 3 DOSES IN 15 MINUTES. tramadol 50 mg tablet 50 mg PO DAILY cyclobenzaprine 10 mg tablet 10 mg PO TID PRN (Reason: MUSCLE SPASM ) colchicine 0.6 mg tablet 0.6 mg PO DAILY Qty: 30 0RF isosorbide mononitrate 60 mg tablet extended release 24 hr 60 mg PO DAILY Qty: 30 0RF methocarbamol 750 mg tablet 750 mg PO Q6H PRN (Reason: spasms) Qty: 20 0RF naproxen [Naprosyn] 500 mg tablet 500 mg PO BID PRN (Reason: pain) Qty: 20 0RF Discharge Orders: Discharge ED (Routine); Ordered 06/21/25 Ordered By: Ronny Ayala Referrals: Elizabeth Dougherty FNP [Primary Care Provider, Unknown] Discharge Diet: Advance as tolerated Discharge Activity: Resume usual activity Patient Instructions: Chest Pain (ED) Print Language: Japanese Coding Level of Care Code ED Manager Book for Chg Fwd Heart Score HEART Score Components History: Slightly Suspicous EKG: Normal Age: Less than 45 yrs Risk Factors: >/=3 Risk Factors Troponin: Baseline Trop >45 ng/L HEART Score RESULT HEART Score: 4
[2025-06-21 08:45] VITALS: RESP 18
[2025-06-21 08:59] LABS: Alanine Aminotransferase 43 U/L (0-33); Albumin Level 3.7 g/dL (3.5-5.2); Alkaline Phosphatase 155 U/L (35-105); Anion Gap 16.4 (5-19); Aspartate Amino Transferase 27 U/L (0-32); Blood Urea Nitrogen 14 mg/dL (6-20); Calcium 8.8 mg/dL (8.5-10.5); Carbon Dioxide 29 mmol/L (22-29); Chloride 95 mmol/L (98-107); Globulin 3.1 g/dL (1.3-4.6); Glucose 139 mg/dL (65-115); Lipase 19 U/L (13-60); Osmolality Calculated 285 mOsm/kg (285-295); Potassium 4.4 mmol/L (3.5-5.1); Sodium 136 mmol/L (136-145); Total Protein 6.8 g/dL (6.6-8.7)
--- NOTE | 2025-06-21 09:07 | ECG_ITS ---
[employer] Test Date: 2025-06-21 Pat Name: Donita Aguilar Department: Room: Gender: Female [employer]: : 1985 Requested By: Ronny Ayala Order Number: [id number] Reading MD: JOSEFA TALLEY Measurements Intervals [place] Rate: 73 P: 60 RI: 186 QRS: -7 QRSD: 104 T: 14 QT: 412 QTc: 456 Interpretive Statements SINUS RHYTHM POSSIBLE ANTERIOR MYOCARDIAL INFARCTION , OF INDETERMINATE AGE [30 ms Q WAVE IN V3/V4, OR R < 0.2 mV IN V4] Compared to ECG 06/14/2025 09:33:41 No significant changes Electronically Signed On 06-24-2025 18:53:08 OIL AGENT by JOSEFA TALLEY [email or web address]
[2025-06-21 09:09] LABS: Troponin(5th) Baseline 195 ng/L (0-10)
[2025-06-21 09:47] VITALS: PULSE 73; O2SAT 98
== END 2025-06-21 10:32 | disposition home or self-care (01) ==
PROVIDERS: Emergency Provider Emergency Medicine; PCP Nurse Practitioner Family
DX: R07.89 Other chest pain (principal); Z79.4 Long term (current) use of insulin; Z79.82 Long term (current) use of aspirin; Z79.02 Long term (current) use of antithrombotics/antiplatelets; Z87.891 Personal history of nicotine dependence; E10.22 Type 1 diabetes mellitus with diabetic chronic kidney disease; I13.2 Hypertensive heart and chronic kidney disease with heart failure and with stage 5 chronic kidney disease, or end stage renal disease; I50.9 Heart failure, unspecified; N18.6 End stage renal disease; Z99.2 Dependence on renal dialysis; J44.9 Chronic obstructive pulmonary disease, unspecified; E78.5 Hyperlipidemia, unspecified
CPT/HCPCS: 36415; 71045; 80053; 83690; 84484; 85025; 93005; 99285